=== PATIENT | female | born 1960 | race Caucasian/White ===

== ENCOUNTER → 2019-01-13 | Outpatient (CLI) | payer MEDICAID ==
[~2019-01-13] MED LIST: ALPR1TAB7; ATOR20TA66; BUTA1TAB9; FURO40TA4; GABA-488; GLIP10TA13; GLIP5TAB13 PO; HYDR-34; HYDR-700; KETO10TA PO; LISI-552; LORA10TA7; METF-399; METH750T3; NITR-65 PO; NORT50CA; OMEP20CA13; RT-ALBUINH; SUMA100T3; TRAM50TA2
[2019-01-13 13:54] LABS: BASOPHILS % (AUTO) 0 % (0-10); EOSINOPHILS # (AUTO) 0.3 10^3/uL (0.0-0.3); EOSINOPHILS % (AUTO) 4 % (0-10); HEMATOCRIT 39 % (35-52); HEMOGLOBIN 12.3 G/DL (11.5-16.0); LYMPHOCYTES # (AUTO) 1.7 X 10^3 (1.0-4.0); LYMPHOCYTES % (AUTO) 26 % (12-44); MEAN CORPUSCULAR HEMOGLOBIN 30 PG (25-34); MEAN CORPUSCULAR HGB CONC 32 G/DL (32-36); MEAN CORPUSCULAR VOLUME 92 FL (80-99); MEAN PLATELET VOLUME 8.9 FL (7.4-10.4); MONOCYTES # (AUTO) 0.3 X 10^3 (0.0-1.0); MONOCYTES % (AUTO) 5 % (0-12); NEUTROPHILS # (AUTO) 4.1 X 10^3 (1.8-7.8); NEUTROPHILS % (AUTO) 64 % (42-75); PLATELET COUNT 306 10^3/uL (130-400); RED CELL DISTRIBUTION WIDTH 12.9 % (10.0-14.5); WHITE BLOOD COUNT 6.3 10^3/uL (4.3-11.0)
[2019-01-13 14:17] LABS: ALBUMIN 4.5 GM/DL (3.2-4.5); BILIRUBIN,TOTAL 0.5 MG/DL (0.1-1.0); CALCIUM 10.9 MG/DL (8.5-10.1); CREATININE SERUM 2.12 MG/DL (0.60-1.30); POTASSIUM 4.9 MMOL/L (3.6-5.0); TOTAL PROTEIN 7.9 GM/DL (6.4-8.2)
--- NOTE | 2019-01-13 14:48 | Diagnostic Imaging Report ---
INDICATION: Preop EXAMINATION: PA and lateral views of the chest. FINDINGS: The heart size and vascularity are normal. Lungs are clear. There is no effusion. There is no acute bony abnormality. IMPRESSION: No acute abnormality is seen. Dictated by: Dictated on workstation # [id number]
== END ==
LOC: CARD 13:36
PROVIDERS: ATTEND Surgery
DX: Z01.810 Encounter for preprocedural cardiovascular examination (principal); Z01.812 Encounter for preprocedural laboratory examination; Z01.811 Encounter for preprocedural respiratory examination; E11.9 Type 2 diabetes mellitus without complications
CPT/HCPCS: 36415; 71046; 80053; 83036; 85025; 93005

== ENCOUNTER → 2019-10-06 | Outpatient (CLI) | payer MEDICAID ==
[~2019-10-06] MED LIST changes: -OMEP20CA13; +OMEP20CA18; -TRAM50TA2; +TRM50T
[2019-10-06 14:40] LABS: HEMOGLOBIN 11.6 G/DL (11.5-16.0); RED CELL DISTRIBUTION WIDTH 15.9 % (10.0-14.5); WHITE BLOOD COUNT 9.5 10^3/uL (4.3-11.0)
[2019-10-06 14:53] LABS: ALBUMIN 4.3 GM/DL (3.2-4.5); CALCIUM 10.5 MG/DL (8.5-10.1); CREATININE SERUM 2.09 MG/DL (0.60-1.30); PHOSPHORUS 3.3 MG/DL (2.3-4.7); POTASSIUM 4.9 MMOL/L (3.6-5.0)
== END ==
LOC: LAB 14:15
PROVIDERS: ATTEND Specialist
DX: I12.9 Hypertensive chronic kidney disease with stage 1 through stage 4 chronic kidney disease, or unspecified chronic kidney disease (principal); N18.3 Chronic kidney disease, stage 3 (moderate)
CPT/HCPCS: 36415; 80069; 85027

== ENCOUNTER → 2019-10-25 | Outpatient (CLI) | payer MEDICAID ==
[~2019-10-25] MED LIST changes: -ALPR1TAB7; +ALPR1TAB7 PO; +AMLO5TAB9 PO; +ASPI-983 PO; -ATOR20TA66; +ATOR20TA66 PO; -FURO40TA4; +FURO40TA4 PO; -GLIP10TA13; +GLIP10TA13 PO; +HYDR-4342 PO; -HYDR-700; +HYDR-700 PO; +INSU100I10 SC; +INSU100I10 SQ; +INSU100V SC; +LEVO112T55 PO; -LISI-552; +LISI-552 PO; -LORA10TA7; +LORA10TA7 PO; +MELA5TAB14 PO; -METF-399; +METF-399 PO; +METH500T7 PO; +MTP25TSR PO; -NORT50CA; +NORT50CA PO; -OMEP20CA18; +OMEP20CA18 PO; -RT-ALBUINH; +RT-ALBUINH PO; +SAXA2.5T PO; -SUMA100T3; +SUMA100T3 PO
[2019-10-25 14:56] LABS: HEMOGLOBIN 9.6 G/DL (11.5-16.0); MEAN PLATELET VOLUME 9.4 FL (7.4-10.4); RED CELL DISTRIBUTION WIDTH 15.3 % (10.0-14.5); WHITE BLOOD COUNT 11.4 10^3/uL (4.3-11.0)
[2019-10-25 15:10] LABS: POTASSIUM 4.9 MMOL/L (3.6-5.0)
[2019-10-25 15:12] LABS: CALCIUM 10.2 MG/DL (8.5-10.1)
[2019-10-25 15:16] LABS: CREATININE SERUM 1.83 MG/DL (0.60-1.30); PHOSPHORUS 2.8 MG/DL (2.3-4.7)
== END ==
LOC: LAB 14:38
PROVIDERS: ATTEND Specialist
DX: I12.9 Hypertensive chronic kidney disease with stage 1 through stage 4 chronic kidney disease, or unspecified chronic kidney disease (principal); N18.3 Chronic kidney disease, stage 3 (moderate)
CPT/HCPCS: 36415; 80069; 85027

== ENCOUNTER 2019-10-27 10:28 | Inpatient (IN) | payer MEDICAID ==
[~2019-10-27] VITALS: Ht 160 cm; Wt 96.3 kg
[2019-10-27] VITALS (11 sets, daily range): BP systolic 90–165; BP diastolic 43–103
[~2019-10-27 10:28] MED LIST changes: -AMLO5TAB9 PO; -ASPI-983 PO; -HYDR-4342 PO; -INSU100I10 SC; -INSU100I10 SQ; -INSU100V SC; -LEVO112T55 PO; -MELA5TAB14 PO; -METH500T7 PO; -MTP25TSR PO; -SAXA2.5T PO
--- NOTE | 2019-10-27 10:35 | NUR ---
PULSE OX 92% ON 3L OXYGEN.
--- NOTE | 2019-10-27 10:43 | ED General ---
General Stated Complaint: WEAKNESS Source of Information: Patient History of Present Illness Date Seen by Provider: Oct 27, 2019 Time Seen by Provider: 10:42 Initial Comments 59-year-old female presents with dizziness and shortness of breath. Patient re ports she's had dizziness for 3-4 days. Gets worse when she stands up little bit if she moves her head. Patient has a history of chronic kidney disease. Upon arrival patient's oxygen is in the mid 70sbut she has no respiratory distress with just mild complaints of shortness of breath. Patient reports she takes lisinopril. Patient denies any headache. She denies fevers or chills. She does report a cough.. Allergies and Home Medications Allergies Coded Allergies: aspirin (Verified Allergy, Unknown, 05/09/15) codeine (Verified Allergy, Unknown, 05/09/15) Home Medications Ketorolac Tromethamine 10 Mg Tablet, 10 MG PO Q6H Prescribed by: SUSY CANNON on 05/09/152030 Nitrofurantoin Monohyd/M-Cryst 100 Mg Capsule, 100 MG PO BID Prescribed by: SUSY CANNON on 05/09/152030 Patient Home Medication List Home Medication List Reviewed: Yes Review of Systems Review of Systems Constitutional: chills, dizziness; No fever Respiratory: cough, short of breath Cardiovascular: No chest pain, No palpitations Gastrointestinal: No abdominal pain, No nausea, No vomiting Genitourinary: no symptoms reported Musculoskeletal: no symptoms reported Skin: no symptoms reported Psychiatric/Neurological: No Symptoms Reported Past Fyxseyw-Mbopnt-Uexzmm Hx Past Med/Social Hx: Reviewed Nursing Past Med/Soc Hx Immunizations Up To Date Date of Influenza Vaccine: Feb 22, 2015 Seasonal Allergies Seasonal Allergies: No Past Medical History Appendectomy, Section, Gallbladder, Orthopedic, Tubal Ligation Asthma Hypertension Neuropathy Reproductive Disorders: Yes (UTERINE FIBROID) [employer]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 oz. 102.861954kp; BMI Method: General Appearance: No Apparent Distress, WD/WN Neck: Non Tender, Supple Respiratory: Chest Non Tender, Lungs Clear, Normal Breath Sounds Cardiovascular: No Edema, Tachycardia Gastrointestinal: Non Tender, Soft Extremity: Normal Range of Motion Neurologic/Psychiatric: Alert, Oriented x3, No Motor/Sensory Deficits, Normal Mood/Affect Skin: Warm/Dry Focused Exam Lactate Level 10/27/19 11:10: Lactic Acid Level 1.64 Lactic Acid Level Progress/Results/Core Measures Suspected Sepsis SIRS Temperature: Pulse: Respiratory Rate: Laboratory Tests 10/27/19 11:10: White Blood Count 15.3H 10/28/19 03:32: White Blood Count 10.2 Blood Pressure / Mean: 10/27/19 11:10: Lactic Acid Level 1.64 Laboratory Tests 10/27/19 11:10: Creatinine 1.73H, Platelet Count 336, Total Bilirubin 2.1H 10/27/19 12:06: INR Comment 1.0 10/28/19 03:32: Creatinine 1.97H, Platelet Count 330, Total Bilirubin 1.3H Results/Orders Lab Results Laboratory Tests Test 10/27/19 11:10 10/27/19 12:06 10/27/19 13:35 10/27/19 13:41 Range/Units White Blood Count 15.3 H 4.3-11.0 10^3/uL Red Blood Count 3.67 L 4.35-5.85 10^6/uL Hemoglobin 10.3 L 11.5-16.0 G/DL Hematocrit 32 L 35-52 % Mean Corpuscular Volume 88 80-99 FL Mean Corpuscular Hemoglobin 28 25-34 PG Mean Corpuscular Hemoglobin Concent 32 32-36 G/DL Red Cell Distribution Width 15.7 H 10.0-14.5 % Platelet Count 336 130-400 10^3/uL Mean Platelet Volume 9.9 7.4-10.4 FL Neutrophils (%) (Auto) 87 H 42-75 % Lymphocytes (%) (Auto) 7 L 12-44 % Monocytes (%) (Auto) 6 0-12 % Eosinophils (%) (Auto) 0 0-10 % Basophils (%) (Auto) 0 0-10 % Neutrophils # (Auto) 13.2 H 1.8-7.8 X 10^3 Lymphocytes # (Auto) 1.1 1.0-4.0 X 10^3 Monocytes # (Auto) 0.9 0.0-1.0 X 10^3 Eosinophils # (Auto) 0.0 0.0-0.3 10^3/uL Basophils # (Auto) 0.0 0.0-0.1 10^3/uL Neutrophils % (Manual) 86 % Lymphocytes % (Manual) 9 % Monocytes % (Manual) 5 % Hypochromasia SLIGHT Sodium Level 139 135-145 MMOL/L Potassium Level 4.4 3.6-5.0 MMOL/L Chloride Level 102 98-107 MMOL/L Carbon Dioxide Level 24 21-32 MMOL/L Anion Gap 13 5-14 MMOL/L Blood Urea Nitrogen 19 H 7-18 MG/DL Creatinine 1.73 H 0.60-1.30 MG/DL Estimat Glomerular Filtration Rate 30 BUN/Creatinine Ratio 11 Glucose Level 390 H 70-105 MG/DL Lactic Acid Level 1.64 0.50-2.00 MMOL/L Calcium Level 10.2 H 8.5-10.1 MG/DL Corrected Calcium 10.4 H 8.5-10.1 MG/DL Ferritin 181.4 H 20.0-177.0 ng/mL Total Bilirubin 2.1 H 0.1-1.0 MG/DL Aspartate Amino Transf (AST/SGOT) 39 H 5-34 U/L Alanine Aminotransferase (ALT/SGPT) 55 0-55 U/L Alkaline Phosphatase 80 40-136 U/L Lactate Dehydrogenase 288 H 125-220 U/L Troponin I 1.127 *H <0.028 NG/ML C-Reactive Protein High Sensitivity 35.77 H 0.00-0.50 MG/DL B-Type Natriuretic Peptide 1020.3 H <100.0 PG/ML Total Protein 7.4 6.4-8.2 GM/DL Albumin 3.7 3.2-4.5 GM/DL Procalcitonin 0.71 H <0.10 NG/ML Coronavirus (COVID-19)(PCR) Negative Negative Prothrombin Time 13.9 12.2-14.7 SEC INR Comment 1.0 0.8-1.4 Activated Partial Thromboplast Time 31 24-35 SEC Fibrinogen 1151 H 221-496 MG/DL Blood Gas Puncture Site LEFT WRITST Blood Gas Patient Temperature 37.3 Arterial Blood pH 7.40 7.37-7.43 Arterial Blood Partial Pressure CO2 45 35-45 MMHG Arterial Blood Partial Pressure O2 63 L 79-93 MMHG Arterial Blood HCO3 27 23-27 MMOL/L Arterial Blood Total CO2 28.2 21.0-31.0 MMOL/L Arterial Blood Oxygen Saturation 86 L 94-100 % Arterial Blood Base Excess 2.5 -2.5-2.5 MMOL/L Rene Test POSITIVE Blood Gas Ventilator Setting NO Blood Gas Inspired Oxygen 2 Urine Opiates Screen POSITIVE H NEGATIVE Urine Oxycodone Screen NEGATIVE NEGATIVE Urine Methadone Screen NEGATIVE NEGATIVE Urine Propoxyphene Screen NEGATIVE NEGATIVE Urine Barbiturates Screen NEGATIVE NEGATIVE Ur Tricyclic Antidepressants Screen POSITIVE H NEGATIVE Urine Phencyclidine Screen NEGATIVE NEGATIVE Urine Amphetamines Screen NEGATIVE NEGATIVE Urine Methamphetamines Screen NEGATIVE NEGATIVE Urine Benzodiazepines Screen POSITIVE H NEGATIVE Urine Cocaine Screen NEGATIVE NEGATIVE Urine Cannabinoids Screen NEGATIVE NEGATIVE Test 10/27/19 17:23 10/27/19 17:26 10/27/19 17:33 10/27/19 18:06 Range/Units Blood Gas Puncture Site LEFT RADIAL Blood Gas Patient Temperature 37 Arterial Blood pH 7.42 7.37-7.43 Arterial Blood Partial Pressure CO2 44 35-45 MMHG Arterial Blood Partial Pressure O2 62 L 79-93 MMHG Arterial Blood HCO3 28 H 23-27 MMOL/L Arterial Blood Total CO2 28.9 21.0-31.0 MMOL/L Arterial Blood Oxygen Saturation 91 L 94-100 % Arterial Blood Base Excess 3.3 H -2.5-2.5 MMOL/L Rene Test POSITIVE Blood Gas Ventilator Setting NO Blood Gas Inspired Oxygen 3 L Troponin I 0.787 *H <0.028 NG/ML Glucometer 278 H 70-110 MG/DL Test 10/27/19 19:50 10/28/19 03:32 10/28/19 08:30 Range/Units D-Dimer 3.28 H 0.00-0.49 UG/ML Glucometer 320 H 70-110 MG/DL White Blood Count 10.2 4.3-11.0 10^3/uL Red Blood Count 3.47 L 4.35-5.85 10^6/uL Hemoglobin 9.6 L 11.5-16.0 G/DL Hematocrit 31 L 35-52 % Mean Corpuscular Volume 89 80-99 FL Mean Corpuscular Hemoglobin 28 25-34 PG Mean Corpuscular Hemoglobin Concent 31 L 32-36 G/DL Red Cell Distribution Width 15.3 H 10.0-14.5 % Platelet Count 330 130-400 10^3/uL Mean Platelet Volume 9.3 7.4-10.4 FL Neutrophils (%) (Auto) 71 42-75 % Lymphocytes (%) (Auto) 22 12-44 % Monocytes (%) (Auto) 6 0-12 % Eosinophils (%) (Auto) 1 0-10 % Basophils (%) (Auto) 0 0-10 % Neutrophils # (Auto) 7.2 1.8-7.8 X 10^3 Lymphocytes # (Auto) 2.2 1.0-4.0 X 10^3 Monocytes # (Auto) 0.6 0.0-1.0 X 10^3 Eosinophils # (Auto) 0.1 0.0-0.3 10^3/uL Basophils # (Auto) 0.0 0.0-0.1 10^3/uL Sodium Level 139 135-145 MMOL/L Potassium Level 3.6 3.6-5.0 MMOL/L Chloride Level 100 98-107 MMOL/L Carbon Dioxide Level 27 21-32 MMOL/L Anion Gap 12 5-14 MMOL/L Blood Urea Nitrogen 25 H 7-18 MG/DL Creatinine 1.97 H 0.60-1.30 MG/DL Estimat Glomerular Filtration Rate 26 BUN/Creatinine Ratio 13 Glucose Level 176 H 70-105 MG/DL Calcium Level 10.0 8.5-10.1 MG/DL Corrected Calcium 10.4 H 8.5-10.1 MG/DL Phosphorus Level 1.8 L 2.3-4.7 MG/DL Magnesium Level 1.2 L 1.6-2.4 MG/DL Total Bilirubin 1.3 H 0.1-1.0 MG/DL Aspartate Amino Transf (AST/SGOT) 35 H 5-34 U/L Alanine Aminotransferase (ALT/SGPT) 52 0-55 U/L Alkaline Phosphatase 69 40-136 U/L Troponin I 0.465 *H <0.028 NG/ML Total Protein 7.2 6.4-8.2 GM/DL Albumin 3.5 3.2-4.5 GM/DL Urine Color YELLOW Urine Clarity CLEAR Urine pH 7.0 5-9 Urine Specific [place] 1.015 L 1.016-1.022 Urine Protein 1+ H NEGATIVE Urine Glucose (UA) NEGATIVE NEGATIVE Urine Ketones NEGATIVE NEGATIVE Urine Nitrite NEGATIVE NEGATIVE Urine Bilirubin NEGATIVE NEGATIVE Urine Urobilinogen 0.2 < = 1.0 MG/DL Urine Leukocyte Esterase NEGATIVE NEGATIVE Urine RBC (Auto) TRACE-I NEGATIVE Urine RBC RARE /HPF Urine WBC NONE /HPF Urine Squamous Epithelial Cells RARE /HPF Urine Crystals NONE /LPF Urine Bacteria NEGATIVE /HPF Urine Casts NONE /LPF Urine Mucus NEGATIVE /LPF Urine Culture Indicated NO My Orders Orders - ROSAS,BHARAT L DO Vital Signs: Every 4 Hours (Or (10/27/19 10:43) Monitor-Rhythm Ecg Trace Only (10/27/19 10:43) Ed Iv/Invasive Line Start (10/27/19 10:43) Cbc With Automated Diff (10/27/19 10:43) Comprehensive Metabolic Panel (10/27/19 10:43) Ferritin (10/27/19 10:43) LDH (10/27/19 10:43) Hs C Reactive Protein (10/27/19 10:43) Troponin I (10/27/19 10:43) Lactic Acid Analyzer (10/27/19 10:43) Protime With Inr (10/27/19 10:43) Partial Thromboplastin Time (10/27/19 10:43) Fibrinogen (10/27/19 10:43) Ekg Tracing (10/27/19 10:43) Chest 1 View, Ap/Pa Only (10/27/19 10:43) Acetaminophen Tablet/Caplet (Tylenol T (10/27/19 10:45) Oxygen Delivery Set Up (10/27/19 10:43) Oxygen-Administer 07,19 (10/27/19 10:43) Meclizine Tablet (Antivert Tablet) (10/27/19 11:00) Manual Differential (10/27/19 11:10) Coronavirus Sars-Cov-2 So 2018 (10/27/19 11:44) Ed Iv/Invasive Line Start (10/27/19 11:51) Ns Iv 500 Ml (Sodium Chloride 0.9%) (10/27/19 11:51) Enoxaparin Injection (Lovenox Injection) (10/27/19 12:00) Ns Iv 500 Ml (Sodium Chloride 0.9%) (10/27/19 11:50) Procalcitonin (Pct) (10/27/19 11:53) Enoxaparin Injection (Lovenox Injection) (10/27/19 11:51) Levofloxacin 750 Mg/150 Ml Iv (Levaquin (10/27/19 12:56) Arterial Blood Gas (10/27/19 13:07) BNP (10/27/19 13:07) Drug Screen Stat (Urine) (10/27/19 13:07) Arterial Blood Gas (10/27/19 13:49) Furosemide Injection (Lasix Injection) (10/27/19 14:15) Blood Culture (10/27/19 12:00) Blood Culture (10/27/19 11:10) Medications Given in ED Vital Signs/I&O 10/27/19 10/28/19 10/28/19 10/28/19 23:04 00:00 00:00 01:00 Temp 35.0 Pulse 109 96 104 Resp 21 26 B/P (MAP) 112/73 (86) 131/91 (104) Pulse Ox 95 94 O2 Delivery Nasal Cannula Nasal Cannula Nasal Cannula O2 Flow Rate 4.00 4.00 4.00 10/28/19 10/28/19 10/28/19 10/28/19 01:00 02:00 03:00 03:44 Temp 36.3 Pulse 101 Resp 22 B/P (MAP) 116/93 (101) 150/99 (116) 138/92 (107) Pulse Ox 94 O2 Delivery Nasal Cannula Nasal Cannula Nasal Cannula O2 Flow Rate 4.00 4.00 4.00 10/28/19 10/28/19 10/28/19 10/28/19 04:00 04:06 05:00 06:00 Pulse 99 103 99 Resp 34 22 14 B/P (MAP) 118/83 (95) 161/116 (131) 143/120 (128) Pulse Ox 93 91 O2 Delivery Nasal Cannula Nasal Cannula Nasal Cannula Nasal Cannula O2 Flow Rate 4.00 4.00 4.00 4.00 10/28/19 10/28/19 10/28/19 07:00 08:00 08:36 Temp 35.7 Pulse 105 96 Resp 15 9 B/P (MAP) 143/120 (128) 74/53 (60) O2 Delivery Nasal Cannula Nasal Cannula O2 Flow Rate 4.00 4.00 10/28/19 00:00 Intake Total 500 ml Balance 500 ml Capillary Refill : Departure Communication (Admissions) Time/Spoke to Admitting Phy: 16:[address] Herron who accepted patient Time/Spoke to Consulting Phy: 15:30 We will check BNP, ABG. Patient shows what appears to be acute CHF. We'll admit her to the hospitalist and Dr. Kelly will see her on the floor. Impression Primary Impression: Congestive heart failure Qualified Codes: I50.9 - Heart failure, unspecified Additional Impressions: Elevated troponin Pulmonary edema Qualified Codes: J81.0 - Acute pulmonary edema Disposition: ADMITTED INPATIENT Condition: Stable Admissions Decision to Admit Reason: Admit from ER (General) Decision to Admit/Date: Oct 27, 2019 Time/Decision to Admit Time: 15:30 Departure-Patient Inst. Referrals: NO,LOCAL PHYSICIAN (PCP/Family) Primary Care Physician BHARAT ROSAS DO Oct 27, 2019 10:42
[2019-10-27] MEDS ORDERED: ACETAMINOPHEN 325 MG TABLET PO ONE (10:45)
[2019-10-27] MEDS ORDERED: MECLIZINE 25 MG (ANTIVERT) TAB PO ONE (11:00)
--- NOTE | 2019-10-27 11:10 | NUR ---
COVID TESTING DONE
--- OUTSIDE RECORDS SUMMARY | 2019-10-27 11:24 | XMS REPORT ---
Author Author SavySwap [facility] Address [address] [place] [address] Care Team Providers Care Bulk Sausage Casing Tier Off Name Role Phone NO, LOCAL PHYSICIAN Unavailable Unavailable EMILY ROBB Unavailable Unavailable SHRUTHI Lawson Unavailable Unavailable Unavailable Kelly Weir PCP Kelly Weir Unavailable Unavailable Kelly Weir Unavailable Unavailable Migration, Doctor Unavailable Unavailable Migration, Doctor Unavailable Unavailable Delbert Garcia MD Unavailable Unavailable [facility] Unavailable Martha vailaJimenez Lindsay PCP JIMENEZ GRESHAM Unavailable Unavailable DELBERT GARCIA Unavailable Unavailable BOUMAN, JIMENEZ C Unavailable Unavailable Bouman, Jimenez Unavailable Unavailable Bouman, Jimenez Unavailable Unavailable Bouman, Jimenez Unavailable Unavailable BOKAITY DO JIMENEZ C Unavailable Unavailable zSam EMILY C Unavailable Unavailable BOUMAN, JIMENEZ C Unavailable Unavailable [facility] Xwatchlist ITZEL VELÁSQUEZ MD Anesth ELVIS SOSA CRNA Anesth KENDRA Verma DO Attending SUSY CANNON DO Unavailable Unavailable MD Delbert Garcia Unavailable Unavailable MD Delbert Garcia Unavailable Unavailable [facility] Unavailable Unavailable Jimenez Gresham PCP [facility] Unavailable Martha DESMOND Pfeiffer MD Unavailable Unavailable Unavailable Unavailable Unavailable Unavailable Unavailable Unavailable Unavailable Unavailable Unavailable Unavailable Unavailable Unavailable Unavailable Unavailable Unavailable Unavailable Unavailable Unavailable Unavailable Unavailable Unavailable Unavailable Unavailable Unavailable Allergies Normalized Allergy Reported Date of Reaction(s) Care Provider Facility Allergy Type classification allergen Allergy Onset Drug allergy Unclassified no information no information [facility] ([facility]) (4 [phone] (72613) (Work source.) ) Drug allergy Unclassified no information no information ANSLEY DYE [facility] (disorder) (1 [phone] (44847) (Work source.) ) Drug allergy Unclassified no information no information ANSLEY DYE [facility] (disorder) (1 [phone] (53136) (Work source.) ) Drug allergy Unclassified no information no information ANSLEY DYE [facility] (disorder) (1 [phone] (35053) (Work source.) ) Drug allergy Unclassified no information no information ANSLEY DYE [facility] (disorder) (1 [phone] (05933) (Work source.) ) Drug allergy Unclassified no information no information ANSLEY DYE [facility] (disorder) (1 [phone] (13936) (Work source.) ) Medications Current Medications Medication Ingredient Drug Dose Dates Status Sig Sig Care Class(es) (Normalized) (Original) Provid er albuterol Albuterol / Anticholine 03-21-20 Active no no no 0.833 mg/ml Ipratropium rgic, 19 information informatio n name / beta2-Adren ipratropium ergic bromide Agonist 0.167 mg/ml inhalant solution (2 sources.) docusate Docusate no 100 mg 03-22-20 Active no no n o sodium 100 information 19 information information name mg oral capsule (2 sources.) 0.4 ml Enoxaparin Low 03-22-20 Active no no no enoxaparin Molecular 19 information information name sodium 100 Weight mg/ml Heparin prefilled syringe (2 sources.) insulin insulin Insulin 03-22-20 Active no no no detemir 100 detemir Analog 19 information information name unt/ml injectable solution (2 sources.) metoprolol Metoprolol beta-Adrene 25 mg 03-22-20 Active take 1 no no tartrate 25 Translation rgic 19 tablet by information name mg oral s: [ Yasmeen mouth every tablet (3 Metoprolol twelve hours sources.) Tartrate 25 MG Oral Tablet] 1 ml Morphine Opioid 03-21-20 Active no no no morphine Agonist 19 information information name sulfate 2 mg/ml prefilled syringe (2 sources.) 2 ml Ondansetron Serotonin-3 03-21-20 Active no no no ondansetron Receptor 19 information information name 2 mg/ml Antagonist injection (2 sources.) pantoprazol pantoprazol Proton Pump 40 mg 03-21-20 Active no no no e 40 mg e Inhibitor 19 information information n max delayed release oral tablet (2 sources.) potassium potassium no 03-22-20 Active no no no phosphate phosphate / information 19 information informat ion name 155 mg / Sodium sodium Phosphate, phosphate, Dibasic / dibasic 852 Sodium mg / sodium Phosphate, phosphate, Monobasic monobasic 130 mg oral tablet (2 sources.) 10 ml Sodium no 03-22-20 Active no no no sodium Chloride information 19 information information name chloride 9 mg/ml prefilled syringe (2 sources.) Completed/Discontinued Medications Medication Ingredient Drug Dose Dates Status Sig Sig Care Class(es) (Normalized) (Original) Provid er aspirin 81 aspirin Nonsteroida 81 mg 11-18-19 no take 1 ASP IRIN 81 Delbert mg delayed Translation l 18 informat tablet by MG TBEC T jairo K release s: [ Anti-inflam ion mouth once one (1) Th omen oral tablet Aspirin 81 matory Drug daily tablet by (n o (20 MG Delayed mouth daily phone) sources.) Release Oral ASPIRIN Tablet, [id number] Aspirin 81 Active MG Delayed Delbert K Release Liseth COON Oral Active Tablet] no BLOOD no 12-10-19 no no TRUE METRIX Heydi information GLUCOSE information 18 informat information AIR GLUCOSE y (20 MONITORING ion METER DEVICE Silveira sources.) SUPPL Use as MA (no directed phone) BLOOD GLUCOSE MONITORING SUPPL [id number] Active Delbert Garcia MD Active 12-09-2017 no no TRUE Agata information inform METRIX Raoul ation AIR MA (no GLUCOSE phone) METER DEVICE Use as directed BLOOD GLUCOSE MONITORI NG SUPPL 93134529 401 Active Delbert Garcia MD Active 03-22-2014 no no TRUETRAC Delbert Reza BLOOD Liseth ferrer GLUCOSE (no w/Device phone) KIT Test twice a day BLOOD GLUCOSE MONITORI NG SUPPL 08542097 921 Active Delbert Garcia MD Active 03-22-2014 no no TRUETRAC Delbert Reza information inform K BLOOD Liseth ferrer GLUCOSE (no w/Device phone) KIT Test twice a day BLOOD GLUCOSE MONITORI NG SUPPL 26309224 921 Active Delbert Garcia MD Active butalbital butalbital Barbiturate Complete no butalbital no (bulk) Translation d information (bulk) name miscellaneo s: [ miscellaneou us powder butalbital] s powder use (3 as directed sources.) no butalbital no no no butalbital no information (bulk) information informat information (bulk) name (1 source.) miscellaneo ion miscellaneou us powder s powder use as directed cefdinir cefdinir Cephalospor 600 mg 11-12-19 Complete take 2 ce fdinir 300 no 300 mg oral Translation in 19 - d capsules by mg oral name capsule (4 s: [ Antibacteri 08-30-19 mouth once capsule sources.) cefdinir al 19 daily 11/11/2018 300 MG Oral 08/29/2018 Capsule] take 2 capsules (600 mg) by oral route once daily for 10 days 600 mg 11-11-2018 Completed take 2 cefdinir no name - capsul 300 mg 08-29-2018 es by oral mouth capsule once daily 9 08/29/2018 take 2 capsules (600 mg) by oral route once daily for 10 days 600 mg 11-11-2018 Completed take 2 cefdinir no name - capsul 300 mg 08-29-2018 es by oral mouth capsule once daily 9 08/29/2018 take 2 capsules (600 mg) by oral route once daily for 10 days 600 mg 08-19-2018 Completed take 2 cefdinir no name - capsul 300 mg 08-29-2018 es by oral mouth capsule once daily 9 08/29/2018 take 2 capsules (600 mg) by oral route once daily for 10 days no GLUCOSE no 03-02-20 no no TRUE METRIX Beth information BLOOD information 19 informat information B/Keren Carr (20 ion STRIPS 25'S , RMA sources.) TEST BLOOD (no SUGAR TWICE phone) DAILY GLUCOSE BLOOD 67308243353 Active KENDALL Juarez Active 03-02-2019 no no TRUE Beth information inform carissa Malone B/G TEST RMA (no STRIPS phone) 25'S TEST BLOOD SUGAR TWICE DAILY GLUCOSE BLOOD 55569168 404 Active KENDALL Juarez Active 03-22-2014 no no TRUE Beth information inform carissa Malone BLOOD RMA (no GLUCOSE phone) TEST IN VITRO STRIP test blood sugar BID Dx: E11.65 GLUCOSE BLOOD 54693079 404 Active KENDALL Juarez Active 12-12-2011 no no ONETOUCH Delbert K - information inform [employer] 11-03-2014 carissa GOMEZ MD (no VITRO phone) STRIP Test twice a day GLUCOSE BLOOD 84753884 450 No Longer Active Delbert Garcia MD Active 12-12-2011 no no ONETOUCH Delbert Reza - information inform [employer] 11-03-2014 carissa GOMEZ MD (no VITRO phone) STRIP Test twice a day GLUCOSE BLOOD 98641031 450 No Longer Active Delbert Garcia MD Active insulin Insulin Insulin 04-12-20 no inject 10 HUMALOG 100 Delbert lispro 100 Lispro Analog [IU] 19 informat [IU] by UNIT/ML K unt/ml Translation ion subcutaneous SUBCUTANEOUS Th omen injectable s: [ injection SOLUTION (no solution HUMALOG 100 once at Take 10 phone) (20 UNIT/ML mealtime units with sources.) SUBCUTANEOU every meal S SOLUTION] INSULIN LISPRO 35007552124 Active Delbert Garcia MD Active 5 [IU] 04-12-2019 no inject HUMALOG Fadumo 5 [IU] 100 Joseph by UNIT/ML (no subcut SUBCUTAN phone) aneous EOUS inject SOLUTION ion Take 5 once units at with mealti every me meal INSULIN LISPRO 18453137 001 Active Fadumo Ruiz Active no INSULIN PEN no 12-21-19 no no PEN NEEDLES Alysia a information NEEDLE information 16 informat information 31G X 6 MM Herbert (20 ion use 1 daily RMA sources.) (no INSULIN PEN phone) NEEDLE 44045558060 Active KENDALL Juarez Active 12-21-2015 no no PEN Martita information inform NEEDLES Herbert RMA ation 31G X 6 (no MM use 1 phone) daily INSULIN PEN NEEDLE 56612713 118 Active KENDALL Juarez Active no INSULIN no 09-06-19 no no INSULIN Fanny information SYRINGE-NEE information 20 informat information SYRINGE 27G Kidwel (14 DLE U-100 ion X 1/2" 0.5 l, MA sources.) ML use 1 as (no needed. phone) INSULIN SYRINGE-NEED LE U-100 83459324802 Active Fanny Hudson MA Active insulin, Insulin, Insulin 5 [IU] 04-12-20 no inject 5 NOVOLO G 100 Delbert aspart, Aspart, Analog 19 informat [IU] by UNIT/ML K human 100 Human ion subcutaneous SUBCUTANEOUS Thomen unt/ml Translation injection at SOLUTION 5 MD (no injectable s: [ mealtime units with phone) solution NOVOLOG 100 each meal. (20 UNIT/ML sources.) SUBCUTANEOU INSULIN S SOLUTION] ASPART 36353989821 No Longer Active Fanny Hudson MA Active 03-21-2019 Active no no no name inform informat ation ion magnesium Magnesium no 400 mg 07-12-19 no take 1 MAGNESI UM Fadumo oxide 400 Oxide information 20 informat capsule by OXIDE 40 0 MG Noe mg oral Translation ion mouth twice ORAL CAPSULE on (no capsule (19 s: [ daily 1 po bid phone) sources.) MAGNESIUM OXIDE 400 MAGNESIUM MG CAPS] OXIDE 54597477603 Active Fadumo Joseph Active 400 mg 03-22-2019 Active take 1 no no name tablet informat by ion mouth every twelve hours no ONETOUCH no 12-12-19 Complete no ONETOUCH no information ULTRA BLUE information 12 - d information ULT RA BLUE name (10 IN VITRO 11-04-19 IN VITRO sources.) STRIP 15 STRIP Test Translation twice a day s: [ ONETOUCH ULTRA BLUE ONETOUCH IN VITRO ULTRA BLUE STRIP, IN VITRO ONETOUCH STRIP ULTRA BLUE GLUCOSE IN VITRO BLOOD STRIP] Inactive sAXagliptin sAXagliptin Dipeptidyl 2.5 mg 04-01-20 no take 1 ONGLYZA 2.5 Jagjit 2.5 mg oral Translation Peptidase 4 19 informat tablet by MG TABS TAKE M tablet (20 s: [ Inhibitor ion mouth once 1 TABLET BY Dora sources.) ONGLYZA 2.5 daily for MOUTH EVERY ey MD MG ORAL diabetes DAY FOR (no TABLET, mellitus DIABETES phone) ONGLYZA 2.5MG SAXAGLIPTIN TABLETS, HCL ONGLYZA 2.5 46599209430 MG TABS] Active Delbert Garcia MD Active 2.5 mg 03-02-2019 no take 1 ONGLYZA Beth information tablet 2.5MG Carr, by TABLETS RMA (no mouth TAKE 1 phone) once TABLET daily BY MOUTH for DAILY diabet FOR es DIABETES mellit us 09 SAXAGLIP TIN HCL 69151350 030 Active Beth Carr, RMA Active 2.5 mg 11-09-2018 no take 1 ONGLYZA Delbert Reza information tablet 2.5 MG Thomen by ORAL MD (no mouth TABLET 1 phone) once daily daily for for diabetes diabet 18 mellit SAXAGLIP us TIN HCL 57623109 030 Active Delbert Garcia MD Active no TOUJEO no 10 12-18-19 Complete take 10 [IU] TOUJE O no information SOLOSTAR information [IU] 16 - d by PRIYA OSTAR 300 name (16 300 UNIT/ML 12-21-19 subcutaneous UNIT/ML sources.) SUBCUTANEOU 16 injection SUBCUTANEOUS S SOLUTION once daily SOLUTION PEN-INJECTO PEN-INJECTOR R 10 units SC Translation daily s: [ TOUJEO SOLOSTAR 300 UNIT/ML TOUJEO SUBCUTANEOU SOLOSTAR 300 S SOLUTION UNIT/ML PEN-INJECTO SUBCUTANEOUS R, TOUJEO SOLUTION SOLOSTAR PEN-INJECTOR 300 UNIT/ML INSULIN SUBCUTANEOU GLARGINE S SOLUTION Inactive PEN-INJECTO R] no TRUE METRIX no 12-10-19 no no TRUE METRIX She lle information AIR GLUCOSE information 18 informat information AIR GLUCOSE y (16 METER ion METER DEVICE Silveira sources.) DEVICE Use as MA (no directed phone) BLOOD GLUCOSE MONITORING SUPPL 59464780770 Active Delbert Garcia MD Active 12-09-2017 no no TRUE Agata information inform METRIX Silveira ation AIR MA (no GLUCOSE phone) METER DEVICE Use as directed BLOOD GLUCOSE MONITORI NG SUPPL 32867453 401 Active Agata Silveira MA Active no TRUE METRIX no 03-22-20 no no TRUE METRIX Sta cey information BLOOD information 14 informat information BLOOD Bruno (13 GLUCOSE ion GLUCOSE TEST , RMA sources.) TEST IN IN VITRO (no VITRO STRIP STRIP test phone) blood sugar BID Dx: E11.65 GLUCOSE BLOOD 54746704612 Active Ct Ledesma MA Active 03-22-2014 no no TRUE Beth information inform METRIX elijah Carrion BLOOD RMA (no GLUCOSE phone) TEST IN VITRO STRIP test blood sugar BID Dx: E11.65 GLUCOSE BLOOD 09157205 404 Active Beth Carr, RMA Active Problems Active Problems Problem Normalized Date Last Normalized Normalized Provider Kae umana Classification Problem(s) Recorded Problem Problem Sta tus Duration Other upper Allergic Chronic Active Pulse [facility]ette [facility] respiratory [place] [address] Physicians disease (3 to pollen Group (27760) sources.) ( ) Other and Benign Episodic Active [facility] unspecified neoplasm of Physicians benign unspecified Group (93761) neoplasm (4 site (Work Phone: sources.) ) Other Body mass 10-12-2019 - Chronic Active [facility] nutritional; index (BMI) (95796) endocrine; and 36.0-36.9, metabolic adult disorders (3 sources.) Other Body mass Chronic Active [facility] lin nutritional; index (BMI) (30165) endocrine; and 37.0-37.9, metabolic adult disorders (4 sources.) Unclassified Body Mass Chronic Active QIE Admin [facility] inic (20 sources.) Index LLC (68280) 37.0-37.9, (Work Phone: adult Translations: ) [ BMI 37-37.9 adult, BMI 37-37.9 adult, BMI 36-36.9, BMI 37-37.9] Other nervous Carpal tunnel Chronic Active QIE Admin [facility] system syndrome LLC (05827) disorders (20 Translations: (Work Phone: sources.) [ CARPAL TUNNEL ) SYNDROME, CARPAL TUNNEL SYNDROME] Other nervous Chronic pain Chronic Active QIE Admin [facility] system syndrome LLC (97486) disorders (20 Translations: (Work Phone: sources.) [ Chronic pain syndrome, ) Chronic pain syndrome] Residual Family history Episodic Active QIE Admin [facility] codes; of diabetes LLC (13400) unclassified mellitus (Work Phone: (20 sources.) Translations: [ FH DIABETES] ) Other liver Fatty (change Chronic Active SUSY KASSANDRA , DO [facility] Via diseases (1 of) liver, not [place] source.) elsewhere Hospital - classified [place] (18139) Hypertension Hypertensive 10-07-2019 - Chronic Active DESMOND PERAZA [facility] Via with chronic kidney , MD Stark complications disease with Hospital - and secondary stage 1 [place] hypertension through stage (41632) (2 sources.) 4 chronic kidney disease, or unspecified chronic kidney disease Other Morbid 10-12-2019 - Chronic Active [facility] nutritional; (severe) (41863) endocrine; and obesity due to metabolic excess disorders (7 calories sources.) Other Morbid obesity Chronic Active [facility] nutritional; Translations: LLC (47344) endocrine; and [ Morbid (Work Phone: metabolic obesity, disorders (20 Morbid obesity ) sources.) due to excess calories, Obesity, class III, Morbid obesity, Morbid obesity due to excess calories, Obesity, class III, Morbid obesity, Obesity Class II (BMI 35-39.9)] Other Neuralgia, Episodic Active [facility] connective neuritis, and 81594 Physicians tissue disease radiculitis, Group (04551) (3 sources.) unspecified ( ) Other Obesity, Chronic Active [facility] nutritional; unspecified MD (29093) endocrine; and metabolic disorders (4 sources.) Residual Unspecified Chronic [facility] codes; sleep apnea LLC (15667) unclassified Translations: (Work Phone: (20 sources.) [ Sleep apnea, Sleep apnea] ) Past or Other Problems Problem Normalized Date Last Normalized Normalized Provider Fa cility Classification Problem(s) Recorded Problem Problem Sta tus Duration Abdominal pain Abdominal Episodic Completed Jimenez Bouman [facility] (20 sources.) pain, right 18139 Physicians lower quadrant Group (52460) Translations: (Work Phone: [ RLQ ) abdominal pain, RLQ abdominal pain, RLQ abdominal pain, Abdominal Pain, Abdominal Pain, Abdominal Pain, Abdominal pain; unspecified site] Acute and Acute kidney Episodic Completed [facility] unspecified failure, Physicians renal failure unspecified Group (52074) (4 sources.) ( ) Residual Decreased Episodic Completed [facility] codes; libido LLC () unclassified Translations: (Work Phone: (20 sources.) [ DECREASED LIBIDO] ) Unclassified Familial no information no information Delbert [facility] (1 source.) hypercholester (55213) olemia Other female Hypertrophy of Episodic Completed SUSY KASSANDRA , DO [facility] Via genital uterus Mi disorders (1 Hospital - source.) [place] (69212) Unclassified LAB no information no information MD Delbert Del Angel (4 sources.) [facility] (94256) Unclassified Other Episodic Completed E Admin [facility] (20 sources.) nonspecific LLC () (abnormal) (Work Phone: findings on radiological ) and other examinations of body structure Translations: [ OTH NONSPC ABN FINDNG RAD&OTH EXM BODY STRUCTURE, OTH NONSPC ABN FINDNG RAD&OTH EXM BODY STRUCTURE, Screening mammogram, Screening mammogram] Other and Personal Episodic Completed E [facility] unspecified history of LLC () benign colonic polyps (Work Phone: neoplasm (20 Translations: sources.) [ PERSONAL ) HISTORY OF COLONIC POLYPS, PERSONAL HISTORY OF COLONIC POLYPS] Unclassified [id number] no information Completed [facility] (1 source.) [id number] 14929 Physicians [id number] Group (35583) llness_name_3 ( ) Unclassified [id number] no information Completed [facility] (1 source.) [id number] 26068 Physicians [id number] Group (24647) llness_name_3 ( ) Unclassified [id number] no information Completed Jimenez Tiffanie maciel [facility] (1 source.) [id number] 23799 Physicians [id number] Group (23893) llness_name_3 ( ) Procedures Procedure Normalized Procedure Procedure Result Performer Facility Date 10-12-2019 (3060F) Positive no information Delbert Garcia MD [facility] microalbuminuria test (27101) (Work Phone: result documented and ) reviewed 10-12-2019 (3066F) Documentation no information Delbert bynum MD [facility] of treatment for (90184) (Work Phone: nephropathy ) 07-11-2019 (3066F) Documentation no information Delbert bynum MD [facility] of treatment for (87169) (Work Phone: nephropathy ) 07-11-2019 (4013F) Statin therapy no information Delbert matta MD [facility] prescribed or (34277) (Work Phone: currently being taken ) 12-30-2018 Blood count complete no information no [facility] wbc Physicians Justin up 12-30-2018 (70249) (Work Phone: - ) 12-30-2018 12-30-2018 Chest x-ray no information no name [facility] - [facility]icians Group 12-30-2018 (00788) (Work Phone: - ) 12-30-2018 10-12-2019 Collection venous no information Charo Cook [facility] blood venipuncture (97145) (Work Phone: ) 07-11-2019 Collection venous no information Charisma Hudson As [facility] blood venipuncture (92289) (Work Phone: ) 03-10-2019 Collection venous no information Charisma Hudson As [facility] blood venipuncture (73796) (Work Phone: ) 11-30-2018 Collection venous no information Charisma RUST blood venipuncture (12252) (Work Phone: ) 01-07-2018 Collection venous no information no name [facility] - blood venipuncture [facility] 01-07-2018 (02486) (Work Phone: - ) 01-07-2018 12-30-2018 Comprehensive no information no name [facility] - metabolic panel [facility] 12-30-2018 (73088) (Work Phone: - ) 12-30-2018 03-21-2019 Drainage of Pelvic no information no name [facility] (87688) Cavity with Drainage (Work Phone: Device, Open Approach ) 01-19-2019 Drug test prsmv read no information Delbert Garcia MD [facility] direct optical obs pr (81488) (Work Phone: date ) 12-30-2018 Ecg routine ecg no information no name [facility] - w/least 12 lds w/i&r Physicians Grou p 12-30-2018 (46042) (Work Phone: - ) 12-30-2018 12-30-2018 Hemoglobin no information no name [facility] - glycosylated a1c [facility]icians Group 12-30-2018 (59945) (Work Phone: - ) 12-30-2018 05-12-2016 Hemoglobin no information Jade Chavez [facility] glycosylated a1c (53770) (Work Phone: ) 08-19-2018 Iaadiadoo no information no name [facility] streptococcus group a [facility]icians [facility] (24561) ( ) 08-19-2018 [place] no information no name [facility] streptococcus group a [facility] (66258) ( ) 03-21-2019 Insertion of Infusion no information no name L abette [facility] (36257) Device into Spinal (Work Phone: Canal, Percutaneous ) Approach 03-21-2019 Resection of Bilateral no information no name [facility] (45133) Ovaries, Open Approach ( ) 03-21-2019 Resection of Uterus, no information no name [facility] (20662) Supracervical, Open (Work Phone: Approach ) 12-01-2018 pelvic nonobstetric no information no name [facility] - real-time image [facility]icians Group 12-01-2018 complete (68643) (Work Phone : - ) 12-01-2018 Immunizations Normalized Immunization Date Notes Care Provider Facili ty Immunization influenza virus 06-29-2007 no information ANSLEY DYE [id number] The ADEX vaccine, split virus (77484) (Work Phone: (incl. purified ) surface antigen) influenza virus 03-12-2006 no information ANSLEY DYE [id number] The ADEX vaccine, split virus (84461) (Work Phone: (incl. purified ) surface antigen) influenza virus 07-11-2019 - no information QIE Admin [facility] vaccine, unspecified 07-11-2019 (27457) (Work Nicki ne: formulation ) Translations: [ Give Appropriate Flu Vaccine] influenza virus 05-11-2018 - no information QIE Admin [facility] [employer] vaccine, unspecified 05-11-2018 (61926) (Work Nicki ne: formulation ) influenza, 01-10-2019 no information ANSLEY DYE [id number] [employer] [facility] injectable, (25897) (Work Phone: quadrivalent, ) preservative free influenza, seasonal, 07-11-2019 no information QIE Admin [facility] injectable (06447) (Work Phone: ) tetanus toxoid, 01-30-2013 no information ANSLEY DYE [id number] [facility] [employer] reduced diphtheria (39948) (Work Phone: toxoid, and ) acellular pertussis vaccine, adsorbed 29512 - Immun Admin 07-11-2019 no information QIE Admin [facility] 1 vac (68306) (Work Phone: ) Results Test Name Value Interpretation Reference Range Date Time Fa cility (Normalized) (Normalized) (Medline Reference) not yet categorized on null no information (ACCRELATEDVI) : (no code) [place] No~(CONVERSATION Regional ) : [facility] - GP Patient~(FULLREG (33523) ) : [id number]~( GHP_ADDR4) : [address]~(GHP_CSZ4) : [place] [phone]~(GHP_N AME4) : [facility]~(GHP_POL HLDR4) : ELENA RADHA~(GHP_RELTN 4) : SELF~(MSP_REVIEW ED) : [id number]~( FTRELTNCVG) : [employer]~(REALRE LTNCVG) : Real no information (ACCRELATEDVI) : (no code) [place] No~(CONVERSATION Regional ) : [facility] Patient~(FULLREG ([id number]) ) : [id number]~( GHP_ADDR4) : [address]~(GHP_CSZ4) : [place] [id number]~(GHP_N AME4) : [facility]~(GHP_POL HLDR4) : ELENA GARCIA~(GHP_RELTN 4) : SELF~(MSP_REVIEW ED) : [phone]~( PREVPATTYPE) : O~(FTRELTNCVG) : Freetext~(REALRE LTNCVG) : Real no information (FTRELTNCVG) : (no code) [facility]reetext~(REALRE Regional LTNCVG) : [facility] () no information (ACCRELATEDVI) : (no code) [place] No~(CONVERSATION Regional ) : [facility] Patient~(FULLREG ([id number]) ) : [id number]~( PREVPATTYPE) : O~(FTRELTNCVG) : Freetext~(REALRE LTNCVG) : Real laboratory on 2019-10-25 Albumin 4.0 g/dL (NEG) 3.4 - 5.4 g/dL 10-25-2019 PENDING LOCATION [Mass/Vol] 10:50-0400 [facility] (55139) Anion gap 11 mmol/L (NEG) 3 - 11 mmol/L 10-25-2019 PENDING LOCATION [Moles/Vol] 10:50-0400 [facility] (22181) Calcium 10.2 mg/dL (H) 8.5 - 10.2 mg/dL 10-25-2019 PEND ING LOCATION [Mass/Vol] 10:50-0400 [facility] (43138) Chloride 104 mmol/L (NEG) 95 - 106 mmol/L 10-25-2019 PENDI NG LOCATION [Moles/Vol] 10:50-0400 [facility] (39712) CO2 [Moles/Vol] 25 mmol/L (NEG) 23 - 29 mmol/L 10-25-2019 P ENDING LOCATION 10:50-0400 [facility] (05480) Creatinine 1.83 mg/dL (H) 10-25-2019 PENDING LOCATI ON [Mass/Vol] 10:50-0400 [facility] (48758) Creatinine and 28 (no code) 10-25-2019 PENDING LOC ATION Glomerular 10:50-0400 [facility] (34193) filtration rate.predicted panel - Serum, Plasma or Blood Erythrocyte 15.3 % (H) 11.6 - 14.6 % 10-25-2019 PENDIN G LOCATION distribution 10:50-0400 [facility] (11643) width (RBC) [Ratio] Glucose 198 mg/dL (H) 60 - 125 mg/dL 10-25-2019 PENDING LOCATION [Mass/Vol] 10:50-0400 [facility] (98922) Hematocrit (Bld) 31 % (L) 36.1 - 50.3 % 10-25-2019 P ENDING LOCATION [Volume 10:50-0400 [facility] (83563) fraction] Hemoglobin (Bld) 9.6 g/dL (L) 12.1 - 17.2 g/dL 10-25-2019 PENDING LOCATION [Mass/Vol] 10:50-0400 [facility] (26458) MCH (RBC) 27 pg (NEG) 27 - 31 pg 10-25-2019 PENDING LOC ATION [Entitic mass] 10:50-0400 [facility] (65882) MCHC (RBC) 31 g/dL (L) 32 - 36 g/dL 10-25-2019 PENDING LOCATION [Mass/Vol] 10:50-0400 [facility] (96217) MCV (RBC) 89 (NEG) 10-25-2019 PENDING LOCATI ON [Entitic vol] 10:50-0400 [facility] (56404) Phosphate 2.8 mg/dL (NEG) 2.4 - 4.1 mg/dL 10-25-2019 PENDIN G LOCATION [Mass/Vol] 10:50-0400 [facility] (33724) Platelet mean 9.4 (NEG) 10-25-2019 PENDING LOCA TION volume (Bld) 10:50-0400 [facility] (91186) [Entitic vol] Platelets (Bld) 309 10*3/uL (NEG) 150 - 450 10-25-2019 PEND ING LOCATION [#/Vol] 10*3/uL 10:50-0400 [facility] (21817) Potassium 4.9 mmol/L (NEG) 3.7 - 5.2 mmol/L 10-25-2019 PEND ING LOCATION [Moles/Vol] 10:50-0400 [facility] (74318) RBC (Bld) 3.50 10*6/uL (L) 4.2 - 6.1 10-25-2019 PENDING L OCATION [#/Vol] 10*6/uL 10:50-0400 [facility] (89778) Sodium 140 mmol/L (NEG) 135 - 145 mmol/L 10-25-2019 PEND ING LOCATION [Moles/Vol] 10:50-0400 [facility] (81058) Urea nitrogen 17 mg/dL (NEG) 7 - 20 mg/dL 10-25-2019 PENDI NG LOCATION [Mass/Vol] 10:50-0400 [facility] (53274) Urea 9 mg/mg (no code) 6 - 22 mg/mg 10-25-2019 PENDING L OCATION nitrogen/Creatin 10:50-0400 [facility] (52862) ine [Mass ratio] WBC (Bld) 11.4 10*3/uL (H) 3.5 - 10.5 10-25-2019 PENDING LOCATION [#/Vol] 10*3/uL 10:50-0400 [facility] (96230) laboratory on 2019-10-12 Calcium 9.8 mg/dL (no code) 8.5 - 10.2 mg/dL 10-12-2019 [facility] [Mass/Vol] 08:00-0400 [facility] () (Work Phone: ) Chloride 101 mmol/L (no code) 95 - 106 mmol/L 10-12-2019 [facility] [Moles/Vol] 08:00-040 [facility] () (Work Phone: ) Cholesterol 156 mg/dL (no code) 180 - 200 mg/dL 10-12-2019 [facility] [Mass/Vol] 08:00-0400 [facility] () (Work Phone: ) Cholesterol in 53 mg/dL (no code) 10-12-2019 [facility] ic HDL [Mass/Vol] 08: [facility] () (Work Phone: ) Cholesterol in 46 mg/dL (no code) 0 - 100 mg/dL 10-12-2019 [facility] LDL [Mass/Vol] 08:00-040 [facility] () (Work Phone: ) CO2 (BldV) 29.9 mmol/L (no code) 10-12-2019 [facility] [Partial 08:00040 [facility] () pressure] (Work Phone: ) Creatinine 1.53 mg/dL (H) 10-12-2019 [facility] [Mass/Vol] 08:00040 [facility] () (Work Phone: ) GFR/1.73 sq M 37 (?) (no code) 10-12-2019 [facility] predicted among 08: [facility] () non-blacks MDRD (Work Phone: (S/P/Bld) [Vol ) rate/Area] Glucose 313 mg/dL (H) 60 - 125 mg/dL 10-12-2019 [facility] [Mass/Vol] 08:00-0400 [facility] () (Work Phone: ) HbA1c (Bld) 8.7 % (H) 0 - 5.7 % 10-12-2019 [facility] [Mass fraction] 08:00-040 [facility] () (Work Phone: ) Potassium 5.0 mmol/L (no code) 3.7 - 5.2 mmol/L 10-12-2019 [facility] [Moles/Vol] 08:00-040 [facility] () (Work Phone: ) Sodium 136 mmol/L (no code) 135 - 145 mmol/L 10-12-2019 [facility] [Moles/Vol] 08:00040 [facility] () (Work Phone: ) Triglyceride 283 mg/dL (H) 10-12-2019 [facility] post 12 Hr fast : [facility] () [Mass/Vol] (Work Phone: ) Urea nitrogen 24 mg/dL (H) 7 - 20 mg/dL 10-12-2019 [facility] [Mass/Vol] 08:00-040 [facility] () (Work Phone: ) laboratory on 2019-10-06 Albumin 4.3 g/dL (NEG) 3.4 - 5.4 g/dL 10-06-2019 PENDING LOCATION [Mass/Vol] 10:31-0400 [facility] (52611) Anion gap 9 mmol/L (NEG) 3 - 11 mmol/L 10-06-2019 PENDING LOCATION [Moles/Vol] 10:-040 [facility] (95528) Calcium 10.5 mg/dL (H) 8.5 - 10.2 mg/dL 10-06-2019 PEND ING LOCATION [Mass/Vol] 10:31-0400 [facility] (67984) Chloride 103 mmol/L (NEG) 95 - 106 mmol/L 10-06-2019 PENDI NG LOCATION [Moles/Vol] 10:31-0400 [facility] (60101) CO2 [Moles/Vol] 28 mmol/L (NEG) 23 - 29 mmol/L 10-06-2019 P ENDING LOCATION 10:-0400 [facility] (90469) Creatinine 2.09 mg/dL (H) 10-06-2019 PENDING LOCATI ON [Mass/Vol] 10:31-0400 [facility] (88952) Creatinine and 24 (no code) 10-06-2019 PENDING LOC ATION Glomerular 10:31-0400 [facility] (36503) filtration rate.predicted panel - Serum, Plasma or Blood Erythrocyte 15.9 % (H) 11.6 - 14.6 % 10-06-2019 [facility] LOCATION distribution 10:31-0400 [facility] (04278) width (RBC) [Ratio] Glucose 222 mg/dL (H) 60 - 125 mg/dL 10-06-2019 PENDING LOCATION [Mass/Vol] 10:31-0400 [facility] (69680) Hematocrit (Bld) 37 % (NEG) 36.1 - 50.3 % 10-06-2019 P ENDING LOCATION [Volume 10:31-0400 [facility] (46017) fraction] Hemoglobin (Bld) 11.6 g/dL (NEG) 12.1 - 17.2 g/dL 10-06-2019 PENDING LOCATION [Mass/Vol] 10:31-0400 [facility] (42151) MCH (RBC) 28 pg (NEG) 27 - 31 pg 10-06-2019 PENDING LOC ATION [Entitic mass] 10:31-0400 [facility] (38102) MCHC (RBC) 31 g/dL (L) 32 - 36 g/dL 10-06-2019 PENDING LOCATION [Mass/Vol] 10:31-0400 [facility] (95854) MCV (RBC) 88 (NEG) 10-06-2019 PENDING LOCATI ON [Entitic vol] 10:31-0400 [facility] (96023) Phosphate 3.3 mg/dL (NEG) 2.4 - 4.1 mg/dL 10-06-2019 [facility] LOCATION [Mass/Vol] 10:31-0400 [facility] (86587) Platelet mean 9.0 (NEG) 10-06-2019 PENDING LOCA TION volume (Bld) 10:31-0400 [facility] (75488) [Entitic vol] Platelets (Bld) 378 10*3/uL (NEG) 150 - 450 10-06-2019 PEND ING LOCATION [#/Vol] 10*3/uL 10:31-0400 [facility] (04703) Potassium 4.9 mmol/L (NEG) 3.7 - 5.2 mmol/L 10-06-2019 PEND ING LOCATION [Moles/Vol] 10: [facility] (31941) RBC (Bld) 4.21 10*6/uL (L) 4.2 - 6.1 10-06-2019 PENDING L OCATION [#/Vol] 10*6/uL 10: [facility] (97101) Sodium 140 mmol/L (NEG) 135 - 145 mmol/L 10-06-2019 PEND ING LOCATION [Moles/Vol] 10: [facility] (15851) Urea nitrogen 28 mg/dL (H) 7 - 20 mg/dL 10-06-2019 PENDI NG LOCATION [Mass/Vol] 10: [facility] (19652) Urea 13 mg/mg (no code) 6 - 22 mg/mg 10-06-2019 PENDING L OCATION nitrogen/Creatin 10: [facility] (72167) ine [Mass ratio] WBC (Bld) 9.5 10*3/uL (NEG) 3.5 - 10.5 10-06-2019 PENDING L OCATION [#/Vol] 10*3/uL 10: [facility] (56215) laboratory on 2019-07-14 Cholesterol 195 mg/dL (no code) 180 - 200 mg/dL 07-14-2019 Akbar onia [Mass/Vol] 10:0500 [facility] (19248) Cholesterol in 47 mg/dL (no code) 07-14-2019 [place] HDL [Mass/Vol] 10:0 [facility] (71143) Cholesterol in 73 mg/dL (no code) 0 - 100 mg/dL 07-14-2019 Matti donia LDL [Mass/Vol] 10:0500 [facility] (93120) Magnesium 1.6 mg/dL (no code) 1.7 - 2.2 mg/dL 07-14-2019 Fredon ia [Mass/Vol] 10:0 [facility] (13236) Triglyceride 373 mg/dL (H) 0 - 150 mg/dL 07-14-2019 Vahid amanda [Mass/Vol] 10:0500 [facility] (62583) laboratory on 2019-07-11 Albumin (U) >30 Abnormal (H) 07-11-2019 [facility] [Mass/Vol] mg/g 07:00-0500 [facility] (58932) (Work Phone: ) Albumin DL <= 20 30 mg/dL (H) 0.2 - 1.9 mg/dL 07-11-2019 [facility] mg/L (U) 07:00-0500 [facility] (83451) [Mass/Vol] (Work Phone: ) Cholesterol 195 mg/dL (no code) 180 - 200 mg/dL 07-11-2019 Akbar onia [Mass/Vol] 22:04-0500 [facility] (24408) Cholesterol in 49 mg/dL (no code) 07-11-2019 [place] HDL [Mass/Vol] 22:04-0500 [facility] (80673) Cholesterol in 73 mg/dL (no code) 0 - 100 mg/dL 07-11-2019 Matti donia LDL [Mass/Vol] 22:04-0500 [facility] (43987) Erythrocyte 14.4 % (no code) 11.6 - 14.6 % 07-11-2019 [facility] distribution 07:00-0500 [facility] (62161) width (RBC) (Work Phone: [Ratio] ) HbA1c (Bld) 9.0 % (H) 0 - 5.7 % 07-11-2019 [facility] [Mass fraction] 07:00-0500 [facility] (14169) (Work Phone: ) Hematocrit (Bld) 36.9 % (L) 36.1 - 50.3 % 07-11-2019 [facility] [Volume 07:00-0500 [facility] (08854) fraction] (Work Phone: ) Hemoglobin (Bld) 11.5 g/dL (L) 12.1 - 17.2 g/dL 07-11-2019 [facility] [Mass/Vol] 07:00-0500 [facility] (93246) (Work Phone: ) Magnesium 1.5 mg/dL (L) 1.7 - 2.2 mg/dL 07-11-2019 Fredon ia [Mass/Vol] 22:04-0500 [facility] (11166) MCH (RBC) 27.2 pg (no code) 27 - 31 pg 07-11-2019 [facility] [Entitic mass] 07:000500 [facility] () (Work Phone: ) MCHC (RBC) 31.562558 g/dL (L) 32 - 36 g/dL 07-11-2019 [facility] [Mass/Vol] 07:00-0500 [facility] () (Work Phone: ) MCV (RBC) 87 fL (no code) 80 - 100 fL 07-11-2019 [facility] [Entitic vol] 07:00050 [facility] () (Work Phone: ) Platelets (Bld) 333 10^3/MM^3 (no code) 07-11-2019 [facility] [#/Vol] 07:0500 [facility] () (Work Phone: ) RBC (Bld) 4.22 10^6/MM^3 (no code) 07-11-2019 [facility] [#/Vol] 07:00-0500 [facility] () (Work Phone: ) Triglyceride 367 mg/dL (H) 0 - 150 mg/dL 07-11-2019 Vahid amanda [Mass/Vol] 22:04-0500 [facility] (26768) TSH Qn 1.80 m[IU]/L (no code) 0.4 - 4 m[IU]/L 07-11-2019 [facility] 07:00-0500 [facility] () (Work Phone: ) WBC (Bld) 9.3 10^3/MM^3 (no code) 07-11-2019 [facility] [#/Vol] 07:000500 [employer] () (Work Phone: ) laboratory on 2019-04-11 Albumin 3.9 g/dL (N) 3.4 - 5.4 g/dL [facility] [Mass/Vol] [facility] (79897) Calcium 10.1 mg/dL (N) 8.5 - 10.2 mg/dL [facility] [Mass/Vol] [facility] (23337) Chloride 101 mmol/L (N) 95 - 106 mmol/L [facility] [Moles/Vol] [facility] (45175) CO2 [Moles/Vol] 29 mmol/L (N) 23 - 29 mmol/L [facility] (56566) Creatinine 1.60 mg/dL (H) [facility] (27813) GFR/1.73 sq M 40 (L) 90 - 120 [facility] alth predicted among mL/min/{1.73_m2} mL/min/{1.73_m2} [facility] blacks MDRD [facility] (S/P/Bld) [Vol (20791) rate/Area] GFR/1.73 sq 35 (L) 90 - 120 [facility] th M.predicted MDRD mL/min/{1.73_m2} mL/min/{1.73_m2} [facility] (S/P/Bld) [Vol [facility] rate/Area] (13944) Glucose 294 mg/dL (H) 60 - 125 mg/dL [facility] [Mass/Vol] [facility] (08274) Phosphate 3.9 mg/dL (N) 2.4 - 4.1 mg/dL [facility] [Mass/Vol] [facility] (60753) Potassium 5.5 mmol/L (H) 3.7 - 5.2 mmol/L [facility] [Moles/Vol] [facility] (65423) Sodium 137 mmol/L (N) 135 - 145 mmol/L [facility] [Moles/Vol] [facility] (17901) Urea nitrogen 23 mg/dL (N) 7 - 20 mg/dL [facility] [Mass/Vol] [facility] (39984) Urea 14 mg/mg (N) 6 - 22 mg/mg [facility] nitrogen/Creatin [facility] [Mass ratio] [facility] (11395) laboratory on 2019-04-06 Albumin 4.0 g/dL (N) 3.4 - 5.4 g/dL [facility] [Mass/Vol] [facility] (73259) Basophils (Bld) 0.053 10*3/uL (N) 0 - 0.3 10*3/uL [facility] [#/Vol] [facility] (65654) Basophils/100 0.7 % (N) 0.5 - 1 % [facility] WBC (Bld) [facility] (81845) Calcium 10.2 mg/dL (N) 8.5 - 10.2 mg/dL [facility] [Mass/Vol] [facility] (56717) Chloride 100 mmol/L (N) 95 - 106 mmol/L [facility] [Moles/Vol] [facility] (50221) CO2 [Moles/Vol] 30 mmol/L (N) 23 - 29 mmol/L [facility] (68717) Creatinine 1.68 mg/dL (H) [facility] [[facility]] [facility] (38346) Eosinophils 0.428 10*3/uL (N) 0.05 - 0.5 [facility] alth (Bld) [#/Vol] 10*3/uL [facility] (32755) Eosinophils/100 5.7 % (N) 1 - 4 % [facility] WBC (Bld) [facility] (21335) Erythrocyte 13.5 % (N) 11.6 - 14.6 % [facility] width (RBC) [facility] [Ratio] (43690) GFR/1.73 sq M 38 (L) 90 - 120 [facility] predicted among mL/min/{1.73_m2} mL/min/{1.73_m2} [facility] MDRD [facility] (S/P/Bld) [Vol (29117) rate/Area] GFR/1.73 sq 33 (L) 90 - 120 [facility] M.predicted MDRD mL/min/{1.73_m2} mL/min/{1.73_m2} [facility] (S/P/Bld) [Vol [facility] rate/Area] (84035) Glucose 281 mg/dL (H) 60 - 125 mg/dL [facility] [Mass/Vol] [facility] (77497) Hematocrit (Bld) 31.6 % (L) 36.1 - 50.3 % [facility] [Volume [facility] (84854) Hemoglobin (Bld) 9.8 g/dL (L) 12.1 - 17.2 g/dL [facility] Health [Mass/Vol] [facility] (13927) Lymphocytes 1.485 10*3/uL (N) 0.9 - 2.9 [facility] alth (Bld) [#/Vol] 10*3/uL [facility] (22735) Lymphocytes/100 19.8 % (N) 20 - 40 % [facility] WBC (Bld) [facility] (96712) MCH (RBC) 28.4 pg (N) 27 - 31 pg [facility] [Entitic mass] [facility] (20512) MCHC (RBC) 31.0 g/dL (L) 32 - 36 g/dL [facility] [Mass/Vol] [facility] (39890) MCV (RBC) 91.6 fL (N) 80 - 100 fL [facility] [Entitic vol] [facility] (15830) Monocytes (Bld) 0.458 10*3/uL (N) 0.3 - 0.9 [facility] Health [#/Vol] 10*3/uL [facility] (59268) Monocytes/100 6.1 % (N) 2 - 8 % [facility] WBC (Bld) [facility] (38105) Neutrophils 5.078 10*3/uL (N) 1.7 - 7 10*3/uL [facility] (Bld) [#/Vol] [facility] (78079) Neutrophils/100 67.7 % (N) 40 - 60 % [facility] WBC (Bld) [facility] (89867) Phosphate 4.0 mg/dL (N) 2.4 - 4.1 mg/dL [facility] [Mass/Vol] [facility] (91778) Platelet mean 9.6 fL (N) 7.2 - 11.7 fL [facility] Health volume (Bld) [facility] [Entitic vol] [facility] (24377) Platelets (Bld) 454 10*3/uL (H) 150 - 450 [facility] Health [#/Vol] 10*3/uL [facility] (42758) Potassium 5.6 mmol/L (H) 3.7 - 5.2 mmol/L [facility] [Moles/Vol] [facility] (34886) RBC (Bld) 3.45 10*6/uL (L) 4.2 - 6.1 [facility] [#/Vol] 10*6/uL [facility] (69859) Sodium 138 mmol/L (N) 135 - 145 mmol/L [facility] [Moles/Vol] [facility] (37343) Urea nitrogen 22 mg/dL (N) 7 - 20 mg/dL [facility] [Mass/Vol] [facility] (36795) Urea 13 mg/mg (N) 6 - 22 mg/mg [facility] nitrogen/Creatin [facility] [Mass ratio] [facility] (53623) WBC (Bld) 7.5 10*3/uL (N) 3.5 - 10.5 [facility] [#/Vol] 10*3/uL [facility] (45817) phosphate [mass/vol] on 2019-03-23 Phosphate 2.9 mg/dL (no code) 2.4 - 4.1 mg/dL [facility] ealt [Mass/Vol] (67798) ( ) magnesium [mass/vol] on 2019-03-23 Magnesium 1.4 mg/dL (L) 1.7 - 2.2 mg/dL [facility] [Mass/Vol] (15032) ( ) comprehensive metabolic 2000 panel on 2019-03-23 AGE 58 yrs (no code) [facility] (88351) ( ) Albumin 4.0 g/dL (no code) 3.4 - 5.4 g/dL [facility] [Mass/Vol] (41762) ( ) ALP [Catalytic 72 U/L (no code) 44 - 147 U/L [facility] activity/Vol] (37078) ( ) ALT [Catalytic 75 U/L (H) 4 - 40 U/L [facility] activity/Vol] (90598) ( ) AST [Catalytic 54 U/L (H) 10 - 34 U/L [facility] activity/Vol] (38305) ( ) Bilirubin 0.6 mg/dL (no code) 0.1 - 1.2 mg/dL [facility] [Mass/Vol] (31528) ( ) Calcium 10.1 mg/dL (no code) 8.5 - 10.2 mg/dL [facility] [Mass/Vol] (19446) ( ) Chloride 101 mmol/L (no code) 95 - 106 mmol/L [facility] [Moles/Vol] (82459) ( ) CO2 [Moles/Vol] 25 mmol/L (no code) 23 - 29 mmol/L [facility] (61714) ( ) Creatinine 2.04 mg/dL (H) [facility] [Mass/Vol] (55730) ( ) eGFR 25 mL/min/1.7 (no code) [facility] (00370) ( ) eGFR AA* 30 mL/min/1.7 (no code) [facility] (46672) ( ) GFR AA 30 (no code) [facility] (51568) ( ) GFR NonAA 25 (no code) [facility] (88270) ( ) Glucose 136 mg/dL (H) 60 - 125 mg/dL [facility] [Mass/Vol] (72313) ( ) Potassium 4.2 mmol/L (no code) 3.7 - 5.2 mmol/L [facility] [Moles/Vol] (52369) ( ) Protein 7.1 g/dL (no code) 6.4 - 8.3 g/dL [facility] [Mass/Vol] (83870) ( ) Sodium 137 mmol/L (no code) 135 - 145 mmol/L [facility] [Moles/Vol] (72487) ( ) Urea nitrogen 22 mg/dL (no code) 7 - 20 mg/dL [facility] [Mass/Vol] (11131) ( ) cbc w reflex manual differential panel (bld) on 2019-03-23 Basophils (Bld) 0.03 10*3/uL (no code) 0 - 0.3 10*3/uL [facility] [#/Vol] (61216) ( ) Basophils/100 0.3 % (no code) 0.5 - 1 % [facility] WBC (Bld) (90665) ( ) Eosinophils 0.21 10*3/uL (no code) 0.05 - 0.5 [facility] (Bld) [#/Vol] 10*3/uL (71354) ( ) Eosinophils/100 2.0 % (no code) 1 - 4 % [facility] WBC (Bld) (39448) ( ) Erythrocyte 14.3 % (no code) 11.6 - 14.6 % [facility] distribution (70201) (Work width (RBC) Phone: [Ratio] ) Hematocrit (Bld) 31.3 % (L) 36.1 - 50.3 % [facility] [Volume (66228) (Work fraction] ) Hemoglobin (Bld) 9.7 g/dL (L) 12.1 - 17.2 g/dL [facility] [Mass/Vol] (65576) ( ) Lymphocytes 2.66 10*3/uL (no code) 0.9 - 2.9 [facility] (Bld) [#/Vol] 10*3/uL (11003) ( ) Lymphocytes/100 24.7 % (no code) 20 - 40 % [facility] WBC (Bld) (84177) ( ) MANUAL DIFF NOT IND (no code) [facility] (96729) ( ) MCH (RBC) 28.5 pg (no code) 27 - 31 pg [facility] [Entitic mass] (45722) ( ) MCHC (RBC) 31.0 g/dL (no code) 32 - 36 g/dL [facility] [Mass/Vol] (86881) ( ) MCV (RBC) 92 fL (no code) 80 - 100 fL [facility] [Entitic vol] (85991) ( ) Monocytes (Bld) 0.57 10*3/uL (no code) 0.3 - 0.9 [facility] [#/Vol] 10*3/uL (16670) ( ) Monocytes/100 5.3 % (no code) 2 - 8 % [facility] WBC (Bld) (55002) ( ) Neutrophils 7.26 10*3/uL (no code) 1.7 - 7 10*3/uL [facility] (Bld) [#/Vol] (29774) ( ) Neutrophils/100 67.4 % (no code) 40 - 60 % [facility] WBC (Bld) (91258) ( ) NRBC% 0.0 /100WBC (no code) [facility] (72434[facility] ( ) Nucleated RBC 0.00 10*3/uL (no code) 0 - 0 10*3/uL [facility] (Bld) [#/Vol] (55177) ( ) Platelet mean 9.6 fL (no code) 7.2 - 11.7 fL [facility] volume (Bld) (30293) (Work [Entitic vol] ) Platelets (Bld) 280 10*3/uL (no code) 150 - 450 [facility] [#/Vol] 10*3/uL (27024) ( ) RBC (Bld) 3.40 10*6/uL (L) 4.2 - 6.1 [facility] [#/Vol] 10*6/uL (71573) ( ) RDW SD 48 FL (no code) [facility] (88933) ( ) WBC other/100 10.8 TH/CMM (no code) [facility] WBC (Bld) (25056) ( ) tsh dl <= 0.005 miu/l qn on 2019-03-22 TSH Qn 0.25 m[IU]/L (L) 0.4 - 4 m[IU]/L [facility] (81247) ( ) t4 [mass/vol] on 2019-03-22 T4 [Mass/Vol] 8.4 ug/dL (no code) 4.5 - 11.7 ug/dL [facility] (15536) ( ) phosphate [mass/vol] on 2019-03-22 Phosphate 2.4 mg/dL (L) 2.4 - 4.1 mg/dL [facility] [Mass/Vol] (28202) ( ) magnesium [mass/vol] on 2019-03-22 Magnesium 1.6 mg/dL (L) 1.7 - 2.2 mg/dL [facility] [Mass/Vol] (64825) ( ) comprehensive metabolic 2000 panel on 2019-03-22 AGE 58 yrs (no code) [facility] (72099) ( ) Albumin 3.8 g/dL (no code) 3.4 - 5.4 g/dL [facility] [Mass/Vol] (30156) ( ) ALP [Catalytic 68 U/L (no code) 44 - 147 U/L [facility] activity/Vol] (36530) ( ) ALT [Catalytic 156 U/L (H) 4 - 40 U/L [facility] activity/Vol] (04041) ( ) AST [Catalytic 138 U/L (H) 10 - 34 U/L [facility] activity/Vol] (50124) ( ) Bilirubin 0.5 mg/dL (no code) 0.1 - 1.2 mg/dL [facility] [Mass/Vol] (86699) ( ) Calcium 9.6 mg/dL (no code) 8.5 - 10.2 mg/dL [facility] [Mass/Vol] (71457) ( ) Chloride 106 mmol/L (no code) 95 - 106 mmol/L [facility] [Moles/Vol] (85173) ( ) CO2 [Moles/Vol] 25 mmol/L (no code) 23 - 29 mmol/L [facility] (81012) ( ) Creatinine 1.94 mg/dL (H) [facility] [Mass/Vol] (18179) ( ) eGFR 26 mL/min/1.7 (no code) [facility] (67342) ( ) eGFR AA* 32 mL/min/1.7 (no code) [facility] (69898) ( ) GFR AA 32 (no code) [facility] (13194) ( ) GFR NonAA 26 (no code) [facility] (50332) ( ) Glucose 185 mg/dL (H) 60 - 125 mg/dL [facility] [Mass/Vol] (07830) ( ) Potassium 4.8 mmol/L (no code) 3.7 - 5.2 mmol/L [facility] [Moles/Vol] (17933) ( ) Protein 6.5 g/dL (no code) 6.4 - 8.3 g/dL [facility] [Mass/Vol] (05945) ( ) Sodium 141 mmol/L (no code) 135 - 145 mmol/L [facility] [Moles/Vol] (32543) ( ) Urea nitrogen 21 mg/dL (no code) 7 - 20 mg/dL [facility] [Mass/Vol] (26708) ( ) cbc w reflex manual differential panel (bld) on 2019-03-22 Basophils (Bld) 0.02 10*3/uL (no code) 0 - 0.3 10*3/uL [facility] [#/Vol] (98028) ( ) Basophils/100 0.2 % (no code) 0.5 - 1 % [facility] WBC (Bld) (49337) ( ) Eosinophils 0.00 10*3/uL (no code) 0.05 - 0.5 [facility] (Bld) [#/Vol] 10*3/uL (85121) ( ) Eosinophils/100 0.0 % (no code) 1 - 4 % [facility] WBC (Bld) (13751) ( ) Erythrocyte 14.0 % (no code) 11.6 - 14.6 % [facility] distribution (55211) (Work width (RBC) Phone: [Ratio] ) Hematocrit (Bld) 29.5 % (L) 36.1 - 50.3 % [facility] [Volume (40163) (Work fraction] ) Hemoglobin (Bld) 9.3 g/dL (L) 12.1 - 17.2 g/dL [facility] [Mass/Vol] (23494) ( ) Lymphocytes 1.38 10*3/uL (no code) 0.9 - 2.9 [facility] (Bld) [#/Vol] 10*3/uL (16517) ( ) Lymphocytes/100 14.4 % (no code) 20 - 40 % [facility] WBC (Bld) (77696) ( ) MANUAL DIFF NOT IND (no code) [facility] (56335) ( ) MCH (RBC) 28.9 pg (no code) 27 - 31 pg [facility] [Entitic mass] (55962) ( ) MCHC (RBC) 31.5 g/dL (no code) 32 - 36 g/dL [facility] [Mass/Vol] (41853) ( ) MCV (RBC) 92 fL (no code) 80 - 100 fL [facility] [Entitic vol] (33891) ( ) Monocytes (Bld) 0.54 10*3/uL (no code) 0.3 - 0.9 [facility] [#/Vol] 10*3/uL (25740) ( ) Monocytes/100 5.6 % (no code) 2 - 8 % [facility] WBC (Bld) (08138) ( ) Neutrophils 7.58 10*3/uL (no code) 1.7 - 7 10*3/uL [facility] (Bld) [#/Vol] ([id number]) ( ) Neutrophils/100 79.4 % (no code) 40 - 60 % [facility] WBC (Bld) (87932) ( ) NRBC% 0.0 /100WBC (no code) [facility] (08331) ( ) Nucleated RBC 0.00 10*3/uL (no code) 0 - 0 10*3/uL [facility] (Bld) [#/Vol] ([id number]) ( ) Platelet mean 9.3 fL (no code) 7.2 - 11.7 fL [facility] volume (Bld) (76118) (Work [Entitic vol] ) Platelets (Bld) 265 10*3/uL (no code) 150 - 450 [facility] [#/Vol] 10*3/uL (06284) ( ) RBC (Bld) 3.22 10*6/uL (L) 4.2 - 6.1 [facility] [#/Vol] 10*6/uL (22773) ( ) RDW SD 47 FL (no code) [facility] (36174) ( ) WBC other/100 9.6 TH/CMM (no code) [facility] WBC (Bld) (01212) ( ) hcg ( test) ql (u) on 2019-03-21 HCG ( Negative (no code) [facility] test) Ql (U) (85094) ( ) glucose glucometer (bldc) [mass/vol] on 2019-03-21 Glucose 101 mg/dL (H) 60 - 125 mg/dL [facility] [Mass/Vol] (08585) ( ) Glucose 246 mg/dL (H) 60 - 125 mg/dL [facility] [Mass/Vol] (29211) ( ) blood type and crossmatch panel (bld) on 2019-03-21 ABO and Rh group Positive (no code) [facility] panel - Blood (06205) ( ) Antibody Negative (no code) [facility] Screen-Gel (09512) ( ) laboratory on 2019-03-10 Calcium 9.7 mg/dL (no code) 8.5 - 10.2 mg/dL 03-10-2019 [facility] [Mass/Vol] 13:00-0400 [facility] ([id number]) (Work Phone: ) Chloride 98 mmol/L (no code) 95 - 106 mmol/L 03-10-2019 [facility] [Moles/Vol] 13:00-0400 [facility] (55913) (Work Phone: ) CO2 (BldV) 34.1 mmol/L (H) 03-10-2019 [facility] [Partial 13:00-0400 LLC ([id number]) pressure] (Work Phone: ) Creatinine 2.22 mg/dL (H) 03-10-2019 [facility] [Mass/Vol] 13:00-0400 [facility] ([id number]) (Work Phone: ) GFR/1.73 sq M 24 (?) (no code) 03-10-2019 [facility] predicted among 13:00-0400 [facility] ([id number]) non-blacks MDRD (Work Phone: (S/P/Bld) [Vol ) rate/Area] Glucose 262 mg/dL (H) 60 - 125 mg/dL 03-10-2019 [facility] [Mass/Vol] 13:00-0400 LLC (00951) (Work Phone: ) HbA1c (Bld) 8.6 % (H) 0 - 5.7 % [facility] ([id number]) (Work Phone: ) Potassium 4.9 mmol/L (no code) 3.7 - 5.2 mmol/L 03-10-2019 [facility] [Moles/Vol] 13:00-0400 LLC () (Work Phone: ) Sodium 137 mmol/L (no code) 135 - 145 mmol/L 03-10-2019 [facility] [Moles/Vol] 13:00-0400 LLC () (Work Phone: ) Urea nitrogen 31 mg/dL (H) 7 - 20 mg/dL 03-10-2019 [facility] [Mass/Vol] 13:00-0400 LLC () (Work Phone: ) laboratory on 2019-01-19 Drugs identified Ordered (no code) 01-19-2019 [facility] inic Screen Nom (U) 13:00-0400 LLC () (Work Phone: ) other on 2018-11-30 CO2 (BldV) 35.1 mmol/L (H) 11-30-2018 [facility] [Partial 13:00-0400 LLC ([id number]) pressure] (Work Phone: ) metabolic panel on 2018-11-30 Calcium 9.8 mg/dL (no code) 8.5 - 10.2 mg/dL 11-30-2018 [facility] [Mass/Vol] 13:00-0400 LLC () (Work Phone: ) Chloride 103 mmol/L (no code) 95 - 106 mmol/L 11-30-2018 [facility] [Moles/Vol] 13:00-0400 LLC ([id number]) (Work Phone: ) Creatinine 1.76 mg/dL (H) 11-30-2018 [facility] [Mass/Vol] 13:00-0400 LLC () (Work Phone: ) GFR/1.73 sq M 31 (?) (no code) 11-30-2018 [facility] predicted among 13:00-0400 [facility] () non-blacks MDRD (Work Phone: (S/P/Bld) [Vol ) rate/Area] Glucose 203 mg/dL (H) 60 - 125 mg/dL 11-30-2018 [facility] [Mass/Vol] 13:00-0400 [facility] () (Work Phone: ) Potassium 4.9 mmol/L (no code) 3.7 - 5.2 mmol/L 11-30-2018 [facility] [Moles/Vol] 13:00-0400 [facility] () (Work Phone: ) Sodium 141 mmol/L (no code) 135 - 145 mmol/L 11-30-2018 [facility] [Moles/Vol] 13:00-0400 [facility] () (Work Phone: ) Urea nitrogen 13 mg/dL (no code) 7 - 20 mg/dL 11-30-2018 [facility] [Mass/Vol] 13:00-0400 [facility] () (Work Phone: ) other on 2018-10-26 CO2 (BldV) 35.3 mmol/L (H) 10-26-2018 [facility] [Partial 13:00-0400 LLC () pressure] (Work Phone: ) metabolic panel on 2018-10-26 Calcium 10.6 mg/dL (H) 8.5 - 10.2 mg/dL 10-26-2018 [facility] [Mass/Vol] 13:00-0400 [facility] () (Work Phone: ) Chloride 97 mmol/L (L) 95 - 106 mmol/L 10-26-2018 [facility] [Moles/Vol] 13:00-0400 [facility] () (Work Phone: ) Creatinine 2.33 mg/dL (H) 10-26-2018 [facility] [Mass/Vol] 13:00-0400 [facility] () (Work Phone: ) GFR/1.73 sq M 23 (?) (no code) 10-26-2018 [facility] predicted among 13:000400 [facility] () non-blacks MDRD (Work Phone: (S/P/Bld) [Vol ) rate/Area] Glucose 239 mg/dL (H) 60 - 125 mg/dL 10-26-2018 [facility] [Mass/Vol] 13:00-0400 [facility] () (Work Phone: ) HbA1c (Bld) 8.0 % (H) 0 - 5.7 % 10-26-2018 [facility] [Mass fraction] 13:000400 [facility] () (Work Phone: ) Potassium 4.9 mmol/L (no code) 3.7 - 5.2 mmol/L 10-26-2018 [facility] [Moles/Vol] 13:00-0400 [facility] () (Work Phone: ) Sodium 136 mmol/L (no code) 135 - 145 mmol/L 10-26-2018 [facility] [Moles/Vol] 13:00-0400 [facility] () (Work Phone: ) Urea nitrogen 31 mg/dL (H) 7 - 20 mg/dL 10-26-2018 [facility] [Mass/Vol] 13:00-0400 [facility] () (Work Phone: ) other on 2018-09-21 S. pyogenes Org Negative (no code) 09-21-2018 [facility] specific cx Ql 08:21-0400 [facility] ([id number]) ( ) laboratory on 2018-09-21 S. pyogenes Org Negative (no code) 09-21-2018 [facility] specific cx Ql 03:21-0400 [facility] (Throat) ([id number]) ( ) other on 2018-05-11 CO2 ppres (BldV) 32.5 mmol/L (H) 05-11-2018 [facility] 13:00-0500 [facility] ([id number]) (Work Phone: ) Erythrocyte 13.1 % (no code) 11.6 - 14.6 % 05-11-2018 [facility] distribution 13:00-0500 LLC (86665) width (RBC) (Work Phone: [Ratio] ) MCHC (RBC) 31.6 g/dL (L) 32 - 36 g/dL 05-11-2018 [facility] [Mass/Vol] 13:00-0500 [facility] (69413) (Work Phone: ) Triglyceride 12 357 mg/dL (H) 05-11-2018 [facility] devin hours fasting 13:000500 [facility] (51741) mass conc (Work Phone: ) WBC Manual cnt 6.8 10^3/MM^3 (no code) 05-11-2018 [facility] #/vol (Bld) 13:000500 [facility] ([id number]) (Work Phone: ) metabolic panel on 2018-05-11 ALP enzyme 63 U/L (no code) 44 - 147 U/L 05-11-2018 [facility] act/vol 13:00-0500 [facility] ([id number]) (Work Phone: ) ALT enzyme 37 U/L (no code) 4 - 40 U/L 05-11-2018 [facility] act/vol 13:00-0500 [facility] ([id number]) (Work Phone: ) AST enzyme 17 U/L (no code) 10 - 34 U/L 05-11-2018 [facility] act/vol 13:000500 [facility] ([id number]) (Work Phone: ) Bilirubin mass 0.40 mg/dL (no code) 0.1 - 1.2 mg/dL 05-11-2018 [facility] conc 13:00-0500 LLC ([id number]) (Work Phone: ) Calcium mass 9.2 mg/dL (no code) 8.5 - 10.2 mg/dL 05-11-2018 [facility] conc 13:00-0500 [facility] ([id number]) (Work Phone: ) Chloride molar 101 mmol/L (no code) 95 - 106 mmol/L 05-11-2018 [facility] conc 13:00-0500 LLC ([id number]) (Work Phone: ) Creatinine mass 1.74 mg/dL (H) 05-11-2018 [facility] conc 13:00-0500 [facility] () (Work Phone: ) GFR/1.73 sq M 32 (?) (no code) 05-11-2018 [facility] predicted among 13:000500 [facility] () non-blacks MDRD (Work Phone: vol rate/area ) (S/P/Bld) Glucose mass 150 mg/dL (H) 60 - 125 mg/dL 05-11-2018 [facility] conc 13:00-0500 [facility] () (Work Phone: ) Hemoglobin 8.5 % (H) 0 - 5.7 % 05-11-2018 [facility] A1c/Hemoglobin.t 13:00-0500 [facility] () otal mass (Work Phone: fraction (Bld) ) Potassium molar 4.4 mmol/L (no code) 3.7 - 5.2 mmol/L 05-11-2018 [facility] conc 13:00-0500 LLC ([id number]) (Work Phone: ) Sodium molar 142 mmol/L (no code) 135 - 145 mmol/L 05-11-2018 [facility] conc 13:00-0500 [facility] () (Work Phone: ) Urea nitrogen 18 mg/dL (no code) 7 - 20 mg/dL 05-11-2018 [facility] mass conc 13:00-0500 LLC ([id number]) (Work Phone: ) laboratory on 2018-05-11 MCHC (RBC) 31.474827 g/dL (L) 32 - 36 g/dL 05-11-2018 [facility] [Mass/Vol] 07:00-0500 LLC ([id number]) (Work Phone: ) hematology on 2018-05-11 Erythrocyte 13.1 % (no code) 11.6 - 14.6 % 05-11-2018 [facility] distribution 13:00-0500 LLC (47025) width Auto Ratio (Work Phone: (RBC) ) Hematocrit (Bld) 38.0 % (no code) 36.1 - 50.3 % 05-11-2018 [facility] [Volume 13:00-0500 LLC (86095) fraction] (Work Phone: ) Hematocrit Auto 38.0 % (no code) 36.1 - 50.3 % 05-11-2018 [facility] Volume Fraction 13:00-0500 LLC ([id number]) (Bld) (Work Phone: ) Hemoglobin mass 12.0 g/dL (no code) 12.1 - 17.2 g/dL 05-11-2018 [facility] conc (Bld) 13:00-0500 LLC ([id number]) (Work Phone: ) MCH (RBC) 29.4 pg (no code) 27 - 31 pg 05-11-2018 [facility] ic [Entitic mass] 13:00-0500 LLC ([id number]) (Work Phone: ) MCH Auto Entitic 29.4 pg (no code) 27 - 31 pg 05-11-2018 [facility] mass (RBC) 13:00-0500 LLC ([id number]) (Work Phone: ) MCHC Auto mass 31.6 g/dL (L) 32 - 36 g/dL 05-11-2018 [facility] conc (RBC) 13:00-0500 LLC ([id number]) (Work Phone: ) MCV (RBC) 93 fL (no code) 80 - 100 fL 05-11-2018 [facility] devin [Entitic vol] 13:00-0500 LLC ([id number]) (Work Phone: ) MCV Auto Entitic 93 fL (no code) 80 - 100 fL 05-11-2018 [facility] volume (RBC) 13:00-0500 LLC ([id number]) (Work Phone: ) Platelets (Bld) 326 10^3/MM^3 (no code) 05-11-2018 [facility] [#/Vol] 13:00-0500 [facility] () (Work Phone: ) Platelets Auto 326 10^3/MM^3 (no code) 05-11-2018 [facility] #/vol (Bld) 13:00-0500 LLC () (Work Phone: ) RBC (Bld) 4.09 10^6/MM^3 (no code) 05-11-2018 [facility] ic [#/Vol] 13:00-0500 LLC () (Work Phone: ) RBC Auto #/vol 4.09 10^6/MM^3 (no code) 05-11-2018 [facility] (Bld) 13:00-0500 [facility] () (Work Phone: ) WBC (Bld) 6.8 10^3/MM^3 (no code) 05-11-2018 [facility] [#/Vol] 13:00-0500 [facility] () (Work Phone: ) cardiac on 2018-05-11 Cholesterol in 49 mg/dL (no code) 05-11-2018 [facility] HDL mass conc 13:00-0500 LLC () (Work Phone: ) Cholesterol in 103.00 mg/dL (no code) 0 - 100 mg/dL 05-11-2018 [facility] LDL mass conc 13:00-0500 [facility] ([id number]) (Work Phone: ) Cholesterol mass 218 mg/dL (H) 180 - 200 mg/dL 05-11-2018 [facility] conc 13:00-0500 [facility] () (Work Phone: ) thyroid on 2018-01-29 Thyrotropin Qn 8.56 m[iU]/mL (H) 01-29-2018 [facility] 13:00-0400 [facility] () (Work Phone: ) metabolic panel on 2018-01-29 Hemoglobin 7.4 % (H) 0 - 5.7 % 01-29-2018 [facility] A1c/Hemoglobin.t 13:00-0400 LLC () otal mass (Work Phone: fraction (Bld) ) other on 2017-11-17 CO2 ppres (BldV) 29.1 mmol/L (no code) 11-17-2017 [facility]: [facility] () (Work Phone: ) metabolic panel on 2017-11-17 Calcium 9.7 mg/dL (no code) 9 - 11 mg/dL 11-17-2017 [facility]: [facility] () (Work Phone: ) Chloride 102 mmol/L (no code) 95 - 106 mmol/L 11-17-2017 [facility] 13: [facility] () (Work Phone: ) CO2 29.1 mmol/L (no code) 23 - 29 mmol/L 11-17-2017 [facility] 13: [facility] () (Work Phone: ) Creatinine 1.97 mg/dL (H) 11-17-2017 [facility] 13: [facility] () (Work Phone: ) Glucose 179 mg/dL (H) 60 - 125 mg/dL 11-17-2017 [facility] 13: [facility] () (Work Phone: ) Glucose mass 179 mg/dL (H) 60 - 125 mg/dL 11-17-2017 [facility] conc 13: [facility] () (Work Phone: ) Potassium 4.8 mmol/L (no code) 3.5 - 5.1 mmol/L 11-17-2017 [facility] 13: [facility] () (Work Phone: ) Sodium 139 mmol/L (no code) 135 - 147 mmol/L 11-17-2017 [facility] 13: [facility] () (Work Phone: ) Urea nitrogen 31 mg/dL (H) 7 - 20 mg/dL 11-17-2017 [facility] 13:00-0400 LLC () (Work Phone: ) other on 2017-08-20 drug screen, Negative (no code) 08-20-2017 [facility] urine, 13:00-0400 LLC ([id number]) qualitative (Work Phone: ) Drugs identified Negative (no code) 08-20-2017 [facility] inic Screen Nom (U) 13:00-0400 LLC ([id number]) (Work Phone: ) other on 2017-05-20 Triglyceride 12 329 mg/dL (H) 05-20-2017 [facility] hours fasting 13:00-0500 LLC ([id number]) mass conc (Work Phone: ) other on 2017-02-24 CO2 ppres (BldV) 28.7 mmol/L (no code) 02-24-2017 [facility] 13:00-0400 [facility] ([id number]) (Work Phone: ) metabolic panel on 2017-02-24 Glucose mass 218 mg/dL (H) 60 - 125 mg/dL 02-24-2017 [facility] conc 13:00-0400 LLC ([id number]) (Work Phone: ) Vital Signs Vital Sign Value Interpretation Reference Date Time Care [facility] ider Facility (Normalized) (Normalized) Range BMI (Body Mass 37.93 kg/m2 (no code) 15 - 25 kg/m2 11-16-2018 Shun Gresham [facility] Index) 16:49-0400 [id number] [facility] ([id number]) ( ) BMI (Body Mass 36.18 kg/m2 (no code) 15 - 25 kg/m2 08-19-2018 Ruth Weir [facility] Index) 18:33-0400 [facility] ([id number]) ( ) Body height 168.91 cm (no code) cm 10-12-2019 QIE Admin A [facility] 08:00-0400 LLC ([id number]) (Work Phone: ) Body height 168.91 cm (no code) cm 07-11-2019 QIE Admin A [facility] 07:00-0500 LLC ([id number]) (Work Phone: ) Body height 167.64 cm (no code) cm [facility]-05-[facility] [id number] [facility] ([id number]) ( ) Body height 167.64 cm (no code) cm 11-16-2018 [facility] 11:49-0400 48770 [facility] ([id number]) ( ) Body height 170.18 cm (no code) cm 08-19-2018 [facility]-0400 76281 [facility] ([id number]) ( ) Body mass 36.8 kg/m2 (no code) 15 - 25 kg/m2 04-05-2019 Jimenez Ian janell [facility] index (BMI) 09:130500 73629 [facility] [Ratio] Group ([id number]) ( ) Body mass 37.93 kg/m2 (no code) 15 - 25 kg/m2 11-16-2018 Jimenez Wilson man [facility] index (BMI) 11:49-0400 [id number] [facility] [Ratio] Group ([id number]) ( ) Body mass 36.18 kg/m2 (no code) 15 - 25 kg/m2 08-19-2018 Jimenez B ouman [facility] index (BMI) 13:33-0400 29035 [facility] [Ratio] Group ([id number]) ( ) Body surface 2.19 m2 (no code) 1.07 - 1.9 m2 04-05-2019 Jimenez B [facility] area Derived 09:130500 [id number] [facility] Group ([id number]) ( ) Body surface 2.23 m2 (no code) 1.07 - 1.9 m2 11-16-2018 [facility] area Derived 11:49-0400 97742 [facility] ([id number]) ( ) Body surface 2.23 m2 (no code) 1.07 - 1.9 m2 08-19-2018 Jimenez reyna [facility] area Derived 13:33-0400 [id number] [facility] from [facility] Group ([id number]) ( ) Body 96.3 [degF] (no code) 97.8 - 99.0 10-12-2019 QIE Admin [facility] temperature [degF] 08:00-0400 LLC ([id number]) (Work Phone: ) Body 98.6 [degF] (no code) 97.8 - 99.0 07-11-2019 QIE Admin [facility] temperature [degF] 07:00-0500 LLC ([id number]) (Work Phone: ) Body 98.6 [degF] (no code) 97.8 - 99.0 04-12-2019 QIE Admin [facility] Temperature [degF] 07:00-0500 LLC ([id number]) (Work Phone: ) Body 96.8 [degF] (no code) 97.8 - 99.0 04-05-2019 Jimenez maciel [facility] temperature [degF] 09:13-0500 [id number] [facility] ([id number]) ( ) Body 98.78 [degF] (no code) 97.8 - 99.0 03-24-2019 ANSLEY [facility] Temperature [degF] 09:52-0400 [id number] ([id number]) (Wor k ) Body 97.16 [degF] (no code) 97.8 - 99.0 03-21-2019 ANSLEY [facility] Temperature [degF] 16:30-0400 [id number] ([id number]) (Wor k ) Body 98.2 [degF] (no code) 97.8 - 99.0 01-19-2019 QIE Admin [facility] Temperature [degF] 13:00-0400 LLC ([id number]) (Work Phone: ) Body 96.8 [degF] (no code) 97.8 - 99.0 12-17-2018 Jimenez Boum an [facility] Temperature [degF] 16:280400 93135 [facility] ([id number]) ( ) Body 96.8 [degF] (no code) 97.8 - 99.0 12-17-2018 Jimenez Boum an [facility] temperature [degF] 11:280400 79686 [facility] ([id number]) ( ) Body 98.1 [degF] (no code) 97.8 - 99.0 11-30-2018 [facility] Admin [facility] Temperature [degF] 13:00-0400 LLC ([id number]) (Work Phone: ) Body 96.9 [degF] (no code) 97.8 - 99.0 11-16-2018 Jimenez Boum an [facility] Temperature [degF] 16:490400 94786 [facility] ([id number]) ( ) Body 96.9 [degF] (no code) 97.8 - 99.0 11-16-2018 Jimenez Boum an [facility] temperature [degF] 11:490400 29688 [facility] ([id number]) ( ) Body 98 [degF] (no code) 97.8 - 99.0 11-09-2018 QIE Admin A [facility] Temperature [degF] 13:00-0400 LLC ([id number]) (Work Phone: ) Body 97.5 [degF] (no code) 97.8 - 99.0 10-26-2018 [facility] Admin [facility] Temperature [degF] 13:00-0400 LLC ([id number]) (Work Phone: ) Body 96.6 [degF] (no code) 97.8 - 99.0 08-19-2018 Kellyzhao oliva [facility] Temperature [degF] 18:33-0400 [facility] ([id number]) ( ) Body 96.6 [degF] (no code) 97.8 - 99.0 08-19-2018 Jimenez Tiffanie maciel [facility] temperature [degF] 13:33-0400 11327 [facility] ([id number]) ( ) Body 99.1 [degF] (no code) 97.8 - 99.0 07-28-2018 [facility] Admin [facility] Temperature [degF] 13:00-0500 LLC ([id number]) (Work Phone: ) Body 98 [degF] (no code) 97.8 - 99.0 05-11-2018 [facility] Admin [facility] Temperature [degF] 13:00-0500 [facility] ([id number]) (Work Phone: ) Body 97.6 [degF] (no code) 97.8 - 99.0 01-29-2018 [facility] Admin [facility] Temperature [degF] 13:00-0400 LLC ([id number]) (Work Phone: ) Body 97.9 [degF] (no code) 97.8 - 99.0 11-17-2017 no name [facility] Temperature [degF] 13:00-0400 LLC ([id number]) (Work Phone: ) Body weight 105.01 kg (no code) kg 10-12-2019 [facility] Admin [facility] 08:00-0400 [facility] ([id number]) (Work Phone: ) Body weight 105.24 kg (no code) kg 07-11-2019 [facility] Admin [facility] 07:00-0500 [facility] ([id number]) (Work Phone: ) Body weight 103.65 kg (no code) kg 04-12-2019 [facility] Admin [facility] 07:00-0500 [facility] ([id number]) (Work Phone: ) Body weight 103.42 kg (no code) kg 04-05-2019 Jimenez Gresham [facility] 09:130500 [id number] [facility] ([id number]) ( ) Body weight 104.15 kg (no code) kg 01-19-2019 [facility] Admin [facility] 13:00-0400 [facility] ([id number]) (Work Phone: ) Body weight 104.78 kg (no code) kg 12-17-2018 [facility] 16:280400 56099 [facility] ([id number]) ( ) Body weight 104.78 kg (no code) kg 12-17-2018 [facility] 11:280400 55954 [facility] ([id number]) ( ) Body weight 107.05 kg (no code) kg 11-30-2018 QIE Admin [facility] 13:00-0400 LLC ([id number]) (Work Phone: ) Body weight 106.6 kg (no code) kg 11-16-2018 [facility] 16:49-0400 52317 [facility] ([id number]) ( ) Body weight 106.6 kg (no code) kg 11-16-2018 [facility]enez [facility] 11:49-0400 41796 [facility] ([id number]) ( ) Body weight 105.24 kg (no code) kg 11-09-2018 QIE Admin [facility] 13:00-0400 [facility] ([id number]) (Work Phone: ) Body weight 103.65 kg (no code) kg 10-26-2018 QIE Admin [facility] 13:00-0400 LLC ([id number]) (Work Phone: ) Body weight 104.78 kg (no code) kg 08-19-2018 Kelly Gomez [facility] [employer] 18:33-0400 [facility] ([id number]) ( ) Body weight 104.78 kg (no code) kg 08-19-2018 [facility] 13:33-0400 25676 [facility] ([id number]) ( ) Body weight 102.97 kg (no code) kg 07-28-2018 QIE Admin [facility] 13:00-0500 LLC ([id number]) (Work Phone: ) Body weight 104.33 kg (no code) kg 05-11-2018 QIE Admin [facility] 13:00-0500 [facility] ([id number]) (Work Phone: ) Body weight 106.6 kg (no code) kg 01-29-2018 QIE Admin [facility] 13:000400 [facility] ([id number]) (Work Phone: ) Body weight 105.69 kg (no code) kg 11-17-2017 QIE Admin [facility] 13:00-0400 LLC ([id number]) (Work Phone: ) Body weight 107.05 kg (no code) kg 08-10-2017 QIE Admin [facility] 13:00-0400 LLC ([id number]) (Work Phone: ) BP Diastolic 84 mm[Hg] (no code) 60 - 80 mm[Hg] 04-12-2019 QIE A [facility] 07:000500 [facility] ([id number]) (Work Phone: ) BP Diastolic 87 mm[Hg] (no code) 60 - 80 mm[Hg] 04-12-2019 QIE A [facility] 07:00-0500 [facility] ([id number]) (Work Phone: ) Blood Pressure 129/ (no code) Systolic: 90 - 03-24-2019 ANSLEY DYE [facility] 78mm[Hg] 120 mm[Hg] 09:52-0400 [id number] ([id number]) (Work Phone: Diastolic: 60 ) - 80 mm[Hg] Blood Pressure 120/ (no code) Systolic: 90 03-21-2019 ANSLEY [employer] [facility] 51mm[Hg] 120 mm[Hg] 15:07-0400 [id number] ([id number]) (Work Phone: Diastolic: 60 ) - 80 mm[Hg] Blood Pressure 120/ (no code) Systolic: 90 - 01-19-2019 QIE Admin [facility] 68mm[Hg] 120 mm[Hg] 13:000400 [facility] ([id number]) (Work Phone: Diastolic: 60 - 80 mm[Hg] ) Blood Pressure 149/ (no code) Systolic: 12-17-2018 Jerr renetta [facility] 82mm[Hg] 120 mm[Hg] 16:28-0400 [id number] [facility] ([id number]) Diastolic: 60 (Work Phone: - 80 mm[Hg] ) Blood Pressure 128/ (no code) Systolic: 11-30-2018 [facility] Admin [facility] 86mm[Hg] 120 mm[Hg] 13:00-0400 LLC ([id number]) (Work Phone: Diastolic: 60 - 80 mm[Hg] ) Blood Pressure 103/ (no code) Systolic: 11-16-2018 Niranjanr renetta Patience [facility] 67mm[Hg] 120 mm[Hg] 16:49-0400 [id number] [facility] ([id number]) Diastolic: 60 (Work Phone: - 80 mm[Hg] ) Blood Pressure 137/ (no code) Systolic: 11-09-2018 [facility] Admin [facility] 84mm[Hg] 120 mm[Hg] 13:00-0400 LLC ([id number]) (Work Phone: Diastolic: 60 - 80 mm[Hg] ) Blood Pressure 106/ (no code) Systolic: 10-26-2018 [facility] Admin [facility] 75mm[Hg] 120 mm[Hg] 13:00-0400 [facility] ([id number]) (Work Phone: Diastolic: 60 - 80 mm[Hg] ) Blood Pressure 132/ (no code) Systolic: 08-19-2018 Dolores [facility]ado[facility] 84mm[Hg] 120 mm[Hg] [facility] ([id number]) Diastolic: 60 (Work Phone: - 80 mm[Hg] ) Blood Pressure 132/ (no code) Systolic: 07-28-2018 [facility] 75mm[Hg] 120 mm[Hg] [facility] ([id number]) (Work Phone: Diastolic: 60 - 80 mm[Hg] ) Blood Pressure 129/ (no code) Systolic: 05-11-2018 [facility] 83mm[Hg] 120 mm[Hg] [facility] ([id number]) (Work Phone: Diastolic: 60 - 80 mm[Hg] ) Blood Pressure 100/ (no code) Systolic: 90 - 01-29-2018 [facility] 72mm[Hg] 120 mm[Hg] [facility] ([id number]) (Work Phone: Diastolic: 60 - 80 mm[Hg] ) Blood Pressure 117/ (no code) Systolic: 90 - 11-17-2017 no n max [facility] 72mm[Hg] 119 mm[Hg] [facility] ([id number]) (Work Phone: Diastolic: 60 - 79 mm[Hg] ) BP Systolic 164 mm[Hg] (no code) 90 - 120 04-12-2019 [facility] mm[Hg] [facility] ([id number]) (Work Phone: ) BP Systolic 176 mm[Hg] (no code) 90 - 120 04-12-2019 [facility] mm[Hg] [facility] ([id number]) (Work Phone: ) BSA (Body 2.23 m2 (no code) m2 11-16-2018 [facility]) 16:49-0400 [id number] ([id number]) ( ) BSA (Body 2.23 m2 (no code) m2 08-19-2018 [facility]) 18:33-[facility] ([id number]) ( ) Diastolic 73 mm[Hg] (no code) 60 - 80 mm[Hg] 10-12-2019 [facility] blood pressure [facility] ([id number]) (Work Phone: ) Diastolic 76 mm[Hg] (no code) 60 - 80 mm[Hg] 10-12-2019 [facility] blood pressure [facility] ([id number]) (Work Phone: ) Blood Pressure 134/ (no code) Systolic: 90 - 07-11-2019 E Admin [facility] 74mm[Hg] 120 mm[Hg] 07[facility] ([id number]) (Work Phone: Diastolic: 60 - 80 mm[Hg] ) Blood Pressure 113/ (no code) Systolic: 90 - 04-05-2019 [facility] 56mm[Hg] 120 mm[Hg] 09:130500 [id number] [facility] ([id number]) Diastolic: 60 (Work Phone: - 80 mm[Hg] ) Blood Pressure 149/ (no code) Systolic: - 12-17-2018 Jerr PlanG [facility] 82mm[Hg] 120 mm[Hg] 11:28-0400 [id number] [facility] ([id number]) Diastolic: 60 (Work Phone: - 80 mm[Hg] ) Blood Pressure 103/ (no code) Systolic: 11-16-2018 Wellntel[facility] Plan[facility] 67mm[Hg] 120 mm[Hg] 11:49-0400 [id number] [facility] ([id number]) Diastolic: 60 (Work Phone: - 80 mm[Hg] ) Blood Pressure 132/ (no code) Systolic: 90 - 08-19-2018 Jerr PlanG [facility] 84mm[Hg] 120 mm[Hg] 13:33-0400 [id number] [facility] ([id number]) Diastolic: 60 (Work Phone: - 80 mm[Hg] ) Heart rate 100 /min (no code) 60 - 100 /min 10-12-2019 E Admin [facility] 08:00-0400 [facility] ([id number]) (Work Phone: ) Heart rate 90 /min (no code) 60 - 100 /min 07-11-2019 E Admin [facility] 07:00-0500 LLC ([id number]) (Work Phone: ) Heart rate 88 /min (no code) 60 - 100 /min 04-05-2019 Jimenezhans Meyer [facility] 09:13-0500 [id number] [facility] ([id number]) ( ) Heart rate 95 /min (no code) 60 - 100 /min 12-17-2018 Jimenez Meyer [facility] 11:28-0400 [id number] [facility] ([id number]) ( ) Heart rate 95 /min (no code) 60 - 100 /min 11-16-2018 Jimenez Meyer [facility] 11:49-0400 [id number] [facility] ([id number]) ( ) Heart rate 94 /min (no code) 60 - 100 /min 08-19-2018 Jimenez Meyer [facility] 13:33-0400 [id number] [facility] ([id number]) ( ) Height 168.91 cm (no code) cm 04-12-2019 QIE Admin [facility] 07:00-0500 LLC ([id number]) (Work Phone: ) Height 168.91 cm (no code) cm 01-19-2019 E Admin [facility] 13:00-0400 LLC ([id number]) (Work Phone: ) Height 168.91 cm (no code) cm 11-30-2018 QIE Admin [facility] 13:00-0400 LLC ([id number]) (Work Phone: ) Height 167.64 cm (no code) cm 11-16-2018 [facility] 16:49-0400 76605 [facility] ([id number]) ( ) Height 168.91 cm (no code) cm 11-09-2018 QIE Admin [facility] 13:00-0400 LLC ([id number]) (Work Phone: ) Height 168.91 cm (no code) cm 10-26-2018 QIE Admin [facility] 13:00-0400 LLC ([id number]) (Work Phone: ) Height 170.18 cm (no code) cm 08-19-2018 [facility] 18:33-0400 [facility] ([id number]) ( ) Height 168.91 cm (no code) cm 07-28-2018 QIE Admin [facility] 13:00-0500 LLC ([id number]) (Work Phone: ) Height 168.91 cm (no code) cm 05-11-2018 [facility] 13:00-0500 [facility] ([id number]) (Work Phone: ) Height 168.91 cm (no code) cm 01-29-2018 QIE Admin [facility] 13:00-0400 LLC ([id number]) (Work Phone: ) Height 168.91 cm (no code) cm 11-17-2017 no name [facility] 13:000400 LLC ([id number]) (Work Phone: ) Oxygen 97 % (no code) 95 - 100 % 08-19-2018 Jimenez Gresham [facility] saturation in 13:33-0400 [id number] [facility] Arterial blood Group ([id number]) by Pulse (Work Phone: oximetry ) Pulse (Heart 85 /min (no code) 60 - 100 /min 04-12-2019 QIE Adm in [facility] Rate) 07:00-0500 LLC ([id number]) (Work Phone: ) Pulse (Heart 83 /min (no code) 60 - 100 /min 03-24-2019 ANSLEY DYE [facility] Rate) 09:52-0400 [id number] ([id number]) ( ) Pulse (Heart 75 /min (no code) 60 - 100 /min 03-21-2019 ANSLEY DYE [facility] Rate) 15:07-0400 [id number] ([id number]) ( ) Pulse (Heart 82 /min (no code) 60 - 100 /min 01-19-2019 QIE Adm in [facility] Rate) 13:00-0400 LLC ([id number]) (Work Phone: ) Pulse (Heart 95 /min (no code) 60 - 100 /min 12-17-2018 Jimenez reyna [facility] Rate) 16:28-0400 [id number] [facility] ([id number]) ( ) Pulse (Heart 74 /min (no code) 60 - 100 /min 11-30-2018 [facility]IE Adm in [facility] Rate) 13:00-0400 LLC ([id number]) (Work Phone: ) Pulse (Heart 95 /min (no code) 60 - 100 /min 11-16-2018 Jimenez Rachel [facility] Rate) 16:49-0400 [id number] [facility] ([id number]) ( ) Pulse (Heart 101 /min (no code) 60 - 100 /min 11-09-2018 [facility] Adm in [facility] Rate) 13:00-0400 LLC ([id number]) (Work Phone: ) Pulse (Heart 77 /min (no code) 60 - 100 /min 10-26-2018 [facility] Adm in [facility] Rate) 13:00-0400 LLC ([id number]) (Work Phone: ) Pulse (Heart 94 /min (no code) 60 - 100 /min 08-19-2018 Kelly Rachel [facility] Rate) 18:33-0400 [facility] ([id number]) ( ) Pulse (Heart 98 /min (no code) 60 - 100 /min 07-28-2018 [facility]IE Adm in [facility] Rate) 13:00-0500 LLC ([id number]) (Work Phone: ) Pulse (Heart 101 /min (no code) 60 - 100 /min 05-11-2018 [facility]IE Adm in [facility] Rate) 13:00-0500 LLC ([id number]) (Work Phone: ) Pulse (Heart 106 /min (no code) 60 - 100 /min 01-29-2018 [facility] Adm in [facility] Rate) 13:00-0400 LLC ([id number]) (Work Phone: ) Pulse (Heart 91 /min (no code) 60 - 100 /min 11-17-2017 no name [facility] Rate) 13:00-0400 LLC ([id number]) (Work Phone: ) Pulse Oximetry 100 % (no code) 95 - 100 % 03-24-2019 ANSLEY DYE [facility] 09:52-0400 [id number] ([id number]) ( ) Pulse Oximetry 94 % (no code) 95 - 100 % 03-21-2019 ANSLEY DYE [facility] 15:08-0400 [id number] ([id number]) ( ) Pulse Oximetry 97 % (no code) 95 - 100 % 08-19-2018 Kellyzhao hassan [facility] 18:33-0400 [facility] ([id number]) ( ) Respiratory 20 /min (no code) 12 - 20 /min 04-05-2019 Jimenez Mitch man [facility] rate 09:13-0500 [id number] [facility] ([id number]) ( ) Respiratory 20 /min (no code) 12 - 20 /min 03-24-2019 ANSLEY DYE [facility] Rate 09:52-0400 [id number] ([id number]) ( ) Respiratory 17 /min (no code) 12 - 20 /min 03-21-2019 ANSLEY DYE [facility] Rate 15:070400 [id number] ([id number]) ( ) Respiratory 20 /min (no code) 12 - 20 /min 12-17-2018 Jimenez Mitch man [facility] Rate 16:28-0400 [id number] [facility] ([id number]) ( ) Respiratory 20 /min (no code) 12 - 20 /min 12-17-2018 Jimenez Mitch man [facility] rate 11:28-0400 [id number] [facility] ([id number]) ( ) Respiratory 20 /min (no code) 12 - 20 /min 11-16-2018 Jimenez Mitch man [facility] Rate 16:49-0400 [id number] [facility] ([id number]) ( ) Respiratory 20 /min (no code) 12 - 20 /min 11-16-2018 Jimenez Mitch man [facility] rate 11:49-0400 [id number] [facility] ([id number]) ( ) Respiratory 20 /min (no code) 12 - 20 /min 08-19-2018 Kelly lora [facility] Rate 18:33-0400 [facility] ([id number]) ( ) Respiratory 20 /min (no code) 12 - 20 /min 08-19-2018 Jimenez crews [facility] rate 13:33-0400 [id number] [facility] ([id number]) ( ) Systolic blood 132 mm[Hg] (no code) 90 - 120 10-12-2019 [facility]IE Admi n [facility] pressure mm[Hg] 08:00-0400 LLC ([id number]) (Work Phone: ) Systolic blood 148 mm[Hg] (no code) 90 - 120 10-12-2019 [facility]IE Admi n [facility] pressure mm[Hg] 08:00-0400 [employer] ([id number]) (Work Phone: ) Weight 104.33 kg (no code) kg 05-11-2018 [facility] 13:00-0500 [facility] ([id number]) (Work Phone: ) Weight 106.6 kg (no code) kg 01-29-2018 [facility] 13:00-0400 [facility] ([id number]) (Work Phone: ) Weight 105.69 kg (no code) kg 11-17-2017 no name [facility] 13:00-0400 LLC ([id number]) (Work Phone: ) Interventions No Information Plan of Treatment Normalized Care Care Detail Care Activity Date Care Provider F acility Activity Blood count complete CBC W/ AUTO DIFF 12-30-2018 Jimenez Gresham [id number] [employer] auto&auto difrntl (RFLX MAN DIFF IF [facility] wbc IND). ([id number]) ( ) Comprehensive CMP (comprehensive 12-30-2018 Jimenez Iankaity 35349 [employer] metabolic panel metabolic panel) [facility] ([id number]) ( ) Computed tomography CT ABD AND PELVIS 11-16-2018 - Jimenez Gresham 78446 [employer] of abdomen and W/CONTRAST 11-16-2018 - [facility] p pelvis with contrast 11-16-2018 ([id number]) (Work Ph one: ) Diagnostic CX CHEST 2 VIEWS 12-30-2018 Jimenez Kendra [address] [facility] chest, combined PA ([id number]) (Work Phone: and lateral ) Ecg routine ecg EKG (12-lead 12-30-2018 Jimenez Kendra [address] [facility] w/least 12 lds w/i&r electrocardiogram) [facility] p ([id number]) ( ) HbA1c (Bld) [Mass HbA1c 12-30-2018 Jimenez Kendra 59522 [facility] fraction] [facility] ([id number]) ( ) Ultrasonography of US ABDOMINAL 12-01-2018 - Jimenez Gresham 12095 [employer] abdomen COMPLETE 12-01-2018 - [facility]ett holliday 12-01-2018 ([id number]) ( ) Goals No Information Social History Normalized Code Original Code Date Value no information no information Former smoker no information no information - denies alcohol use Functional Status The data below is from unstructured sources Query Response Date Rios rded Patient Behavior Appropriate May 13, 2015 6:55pm Query Response Date Rios rded Patient Behavior Cooperative March 24, 2015 11:07am No Data Found Mental Status The data below is from unstructured sources No Data Found Encounters Encounter Normalized Encounter Encounter Diagnosis Care Provi jessica Organization Date Type 03-21-2019 Admission to day no information Jimenez Gresham (no [email or web address] - IP surgery phone) (no phone) 05-09-2015 Emergency department no information no name no organization name - patient visit 05-09-2015 03-21-2019 Evaluation and no information no name no organ ization name - management of 03-24-2019 inpatient 01-07-2018 Laboratory no information Alysha Pratt Other In dependence [facility] (no phone) 01-07-2018 Laboratory no information Alysha Pratt Other In dependence [facility] (no phone) 12-17-2018 Office outpatient no information Jimenez Gresham Other [facility] visit 15 minutes (no phone) 12-17-2018 Office outpatient no information Jimenez Gresham Other [facility] visit 15 minutes (no phone) 11-16-2018 Office outpatient no information Jimenez Gresham Other [facility] visit 15 minutes (no phone) 11-16-2018 Office outpatient no information Jimenez Gresham Other [facility] visit 15 minutes (no phone) 11-09-2018 Office outpatient no information Delbert Garcia MD [facility] Work visit 15 minutes Work Phone: Phone: 08-19-2018 Office outpatient no information Kelly Chelsea [facility] (no visit 15 minutes Other Phone: phone) 08-19-2018 Office outpatient no information Kelly Chelsea [facility] (no visit 15 minutes Other Phone: phone) 10-12-2019 Office outpatient no information Delbert Garcia MD [facility] Work visit 25 minutes Work Phone: Phone: 07-11-2019 Office outpatient no information Delbert Garcia MD [facility] Work visit 25 minutes Work Phone: Phone: 04-12-2019 Office outpatient no information Delbert Garcia MD [facility] Work visit 25 minutes Work Phone: Phone: 11-30-2018 Office outpatient no information Delbert Garcia MD [facility] Work visit 25 minutes Work Phone: Phone: 10-26-2018 Office outpatient no information Delbert Garcia MD [facility] Work visit 25 minutes Work Phone: Phone: 07-28-2018 Office outpatient no information Delbert Garcia MD [facility] Work visit 25 minutes Work Phone: Phone: 05-11-2018 Office outpatient no information Delbert Garcia MD [facility] Work visit 25 minutes Work Phone: Phone: 02-16-2018 Office outpatient no information Ann Verma [facility] Work visit 25 minutes Work Phone: Phone: 01-29-2018 Office outpatient no information Ann Verma [facility] Work visit 25 minutes Work Phone: Phone: 01-19-2019 Office outpatient no information Delbert Garcia MD [facility] Work visit 40 minutes Work Phone: Phone: 11-17-2017 Office/outpatient no information Delbert Garcia MD [facility] Work visit, est, level 5 Work Phone: Phone: 01-07-2018 Patient encounter no information no name no or ganization name - 01-07-2018 Patient encounter no information Delbert Garcia MD (no [facility] (no phone) (no phone) (no phone) phone) 10-25-2019 Patient encounter no information DESMOND [facility] procedure (no phone) [facility] (no phone) 10-06-2019 Patient encounter no information DESMOND [facility] procedure (no phone) [facility] (no phone) 07-11-2019 Patient encounter no information MD Delbert Garcia ( no [facility] - procedure phone) MD [facility] (no [facility] (no 07-11-2019 phone) MD [place] phoneMickey Garcia (no phone) MD Delbert Garcia (no phone) 07-11-2019 Patient encounter no information MD Delbert Garcia ( no [facility] - procedure phone) MD [place] (no [facility] (no 07-11-2019 phone) phone) 04-11-2019 Patient encounter no information no name no or ganization name procedure 04-06-2019 Patient encounter no information no name no or ganization name procedure 03-21-2019 Patient encounter no information no name no or ganization name procedure 01-13-2019 Patient encounter no information no name no or ganization name procedure 01-13-2019 Patient encounter no information no name no or ganization name procedure 01-10-2019 Patient encounter no information no name no or ganization name procedure 01-06-2019 Patient encounter no information no name no or ganization name procedure 12-13-2018 Patient encounter no information no name no or ganization name - procedure 12-13-2018 12-13-2018 Patient encounter no information no name no or ganization name - procedure 12-13-2018 04-05-2019 Postop follow up visit no information Jimenez Gresham Other [facility] related to original px (no phone) 12-30-2018 [id number] Pre-operative no name n o organization name [id number] examination, ness_name_21 unspecified 12-30-2018 [id number] Pre-operative no name n o organization name [id number] examination, ness_name_21 unspecified 07-21-2013 Health screening Routine general no name (no p huber) (no phone) medical examination at a health care facility 02-25-2013 WE[facility] WOMAN EXAMINATION Routine gynecological no nam e (no phone) (no phone) examination no information Encounter for no name no organization name preprocedural cardiovascular examination Medical Equipment Equipment Code (if Equipment Original Equipment Identifier P rocedure Code (if Dates provided) Text (if provided) (if provided) provided) no information Test twice a day no information (no no informati on 12-12-2011 - named assigning 11-03-2014 authority) no information use 1 daily no information (no no information 0 12-21-2015 named assigning authority) no information test blood sugar BID no information (no no infor mation 03-22-2014 Dx: E11.65 named assigning authority) no information Test twice a day no information (no no informati on 03-22-2014 named assigning authority) no information Test twice a day no information (no no informati on 12-12-2011 - named assigning 11-03-2014 authority) no information Test twice a day no information (no no informati on 12-12-2011 - named assigning 11-03-2014 authority) no information use 1 daily no information (no no information 0 12-21-2015 named assigning authority) no information test blood sugar BID no information (no no infor mation 03-22-2014 Dx: E11.65 named assigning authority) no information Test twice a day no information (no no informati on 03-22-2014 named assigning authority) no information Test twice a day no information (no no informati on 12-12-2011 - named assigning 11-03-2014 authority) no information Test twice a day no information (no no informati on 12-12-2011 - named assigning 11-03-2014 authority) no information use 1 daily no information (no no information 0 12-21-2015 named assigning authority) no information test blood sugar BID no information (no no infor mation 03-22-2014 Dx: E11.65 named assigning authority) no information Test twice a day no information (no no informati on 03-22-2014 named assigning authority) no information Test twice a day no information (no no informati on 12-12-2011 - named assigning 11-03-2014 authority) no information Test twice a day no information (no no informati on 12-12-2011 - named assigning 11-03-2014 authority) no information use 1 daily no information (no no information 0 12-21-2015 named assigning authority) no information test blood sugar BID no information (no no infor mation 03-22-2014 Dx: E11.65 named assigning authority) no information Test twice a day no information (no no informati on 03-22-2014 named assigning authority) no information Test twice a day no information (no no informati on 12-12-2011 - named assigning 11-03-2014 authority) no information Test twice a day no information (no no informati on 12-12-2011 - named assigning 11-03-2014 authority) no information use 1 daily no information (no no information 0 12-21-2015 named assigning authority) no information test blood sugar BID no information (no no infor mation 03-22-2014 Dx: E11.65 named assigning authority) no information Test twice a day no information (no no informati on 03-22-2014 named assigning authority) no information Test twice a day no information (no no informati on 12-12-2011 - named assigning 11-03-2014 authority) no information Test twice a day no information (no no informati on 12-12-2011 - named assigning 11-03-2014 authority) no information use 1 daily no information (no no information 0 12-21-2015 named assigning authority) no information test blood sugar BID no information (no no infor mation 03-22-2014 Dx: E11.65 named assigning authority) no information Test twice a day no information (no no informati on 03-22-2014 named assigning authority) no information Test twice a day no information (no no informati on 12-12-2011 - named assigning 11-03-2014 authority) no information Test twice a day no information (no no informati on 03-22-2014 named assigning authority) no information Test twice a day no information (no no informati on 03-22-2014 named assigning authority) no information Test twice a day no information (no no informati on 12-12-2011 - named assigning 11-03-2014 authority) no information Test twice a day no information (no no informati on 03-22-2014 named assigning authority) no information Test twice a day no information (no no informati on 03-22-2014 named assigning authority) no information Test twice a day no information (no no informati on 12-12-2011 - named assigning 11-03-2014 authority) no information Test twice a day no information (no no informati on 03-22-2014 named assigning authority) no information Test twice a day no information (no no informati on 03-22-2014 named assigning authority) no information Test twice a day no information (no no informati on 12-12-2011 - named assigning 11-03-2014 authority) no information Test twice a day no information (no no informati on 03-22-2014 named assigning authority) no information Test twice a day no information (no no informati on 03-22-2014 named assigning authority) no information Test twice a day no information (no no informati on 12-12-2011 - named assigning 11-03-2014 authority) no information Test twice a day no information (no no informati on 03-22-2014 named assigning authority) no information Test twice a day no information (no no informati on 03-22-2014 named assigning authority) no information Test twice a day no information (no no informati on 12-12-2011 - named assigning 11-03-2014 authority) no information Test twice a day no information (no no informati on 03-22-2014 named assigning authority) no information Test twice a day no information (no no informati on 03-22-2014 named assigning authority) no information Test twice a day no information (no no informati on 12-12-2011 - named assigning 11-03-2014 authority) no information Test twice a day no information (no no informati on 03-22-2014 named assigning authority) no information Test twice a day no information (no no informati on 03-22-2014 named assigning authority) no information Test twice a day no information (no no informati on 12-12-2011 - named assigning 11-03-2014 authority) no information Test twice a day no information (no no informati on 03-22-2014 named assigning authority) no information Test twice a day no information (no no informati on 03-22-2014 named assigning authority) no information Test twice a day no information (no no informati on 12-12-2011 - named assigning 11-03-2014 authority) no information Test twice a day no information (no no informati on 03-22-2014 named assigning authority) no information Test twice a day no information (no no informati on 03-22-2014 named assigning authority) no information Test twice a day no information (no no informati on 12-12-2011 - named assigning 11-03-2014 authority) no information Test twice a day no information (no no informati on 03-22-2014 named assigning authority) no information Test twice a day no information (no no informati on 03-22-2014 named assigning authority) no information Test twice a day no information (no no informati on 12-12-2011 - named assigning 11-03-2014 authority) no information Test twice a day no information (no no informati on 03-22-2014 named assigning authority) no information Test twice a day no information (no no informati on 03-22-2014 named assigning authority) no information Test twice a day no information (no no informati on 12-12-2011 - named assigning 11-03-2014 authority) no information Test twice a day no information (no no informati on 03-22-2014 named assigning authority) no information Test twice a day no information (no no informati on 03-22-2014 named assigning authority) no information Test twice a day no information (no no informati on 12-12-2011 - named assigning 11-03-2014 authority) no information Test twice a day no information (no no informati on 03-22-2014 named assigning authority) no information Test twice a day no information (no no informati on 03-22-2014 named assigning authority) no information Test twice a day no information (no no informati on 12-12-2011 - named assigning 11-03-2014 authority) no information Test twice a day no information (no no informati on 03-22-2014 named assigning authority) no information Test twice a day no information (no no informati on 03-22-2014 named assigning authority) no information Test twice a day no information (no no informati on 12-12-2011 - named assigning 11-03-2014 authority) no information Test twice a day no information (no no informati on 03-22-2014 named assigning authority) no information Test twice a day no information (no no informati on 03-22-2014 named assigning authority) no information Test twice a day no information (no no informati on 12-12-2011 - named assigning 11-03-2014 authority) no information Test twice a day no information (no no informati on 03-22-2014 named assigning authority) no information Test twice a day no information (no no informati on 03-22-2014 named assigning authority) no information Test twice a day no information (no no informati on 12-12-2011 - named assigning 11-03-2014 authority) no information Test twice a day no information (no no informati on 03-22-2014 named assigning authority) no information Test twice a day no information (no no informati on 03-22-2014 named assigning authority) no information Test twice a day no information (no no informati on 12-12-2011 - named assigning 11-03-2014 authority) no information Test twice a day no information (no no informati on 03-22-2014 named assigning authority) no information Test twice a day no information (no no informati on 03-22-2014 named assigning authority) no information Test twice a day no information (no no informati on 12-12-2011 - named assigning 11-03-2014 authority) no information Test twice a day no information (no no informati on 03-22-2014 named assigning authority) no information Test twice a day no information (no no informati on 03-22-2014 named assigning authority) no information Test twice a day no information (no no informati on 12-12-2011 - named assigning 11-03-2014 authority) no information Test twice a day no information (no no informati on 03-22-2014 named assigning authority) no information Test twice a day no information (no no informati on 03-22-2014 named assigning authority) no information Test twice a day no information (no no informati on 12-12-2011 - named assigning 11-03-2014 authority) no information Test twice a day no information (no no informati on 03-22-2014 named assigning authority) no information Test twice a day no information (no no informati on 03-22-2014 named assigning authority) no information Test twice a day no information (no no informati on 12-12-2011 - named assigning 11-03-2014 authority) no information Test twice a day no information (no no informati on 03-22-2014 named assigning authority) no information Test twice a day no information (no no informati on 03-22-2014 named assigning authority) no information Test twice a day no information (no no informati on 12-12-2011 - named assigning 11-03-2014 authority) no information Test twice a day no information (no no informati on 03-22-2014 named assigning authority) no information Test twice a day no information (no no informati on 03-22-2014 named assigning authority) no information Test twice a day no information (no no informati on 12-12-2011 - named assigning 11-03-2014 authority) no information Test twice a day no information (no no informati on 03-22-2014 named assigning authority) no information Test twice a day no information (no no informati on 03-22-2014 named assigning authority) no information Test twice a day no information (no no informati on 12-12-2011 - named assigning 11-03-2014 authority) no information Test twice a day no information (no no informati on 03-22-2014 named assigning authority) no information Test twice a day no information (no no informati on 03-22-2014 named assigning authority) no information Test twice a day no information (no no informati on 12-12-2011 - named assigning 11-03-2014 authority) no information Test twice a day no information (no no informati on 03-22-2014 named assigning authority) no information Test twice a day no information (no no informati on 03-22-2014 named assigning authority) no information Test twice a day no information (no no informati on 12-12-2011 - named assigning 11-03-2014 authority) no information Test twice a day no information (no no informati on 03-22-2014 named assigning authority) no information Test twice a day no information (no no informati on 03-22-2014 named assigning authority) no information Test twice a day no information (no no informati on 12-12-2011 - named assigning 11-03-2014 authority) no information Test twice a day no information (no no informati on 03-22-2014 named assigning authority) no information Test twice a day no information (no no informati on 03-22-2014 named assigning authority) no information Test twice a day no information (no no informati on 12-12-2011 - named assigning 11-03-2014 authority) no information Test twice a day no information (no no informati on 03-22-2014 named assigning authority) no information Test twice a day no information (no no informati on 03-22-2014 named assigning authority) no information Test twice a day no information (no no informati on 12-12-2011 - named assigning 11-03-2014 authority) no information Test twice a day no information (no no informati on 03-22-2014 named assigning authority) no information Test twice a day no information (no no informati on 03-22-2014 named assigning authority) no information Test twice a day no information (no no informati on 12-12-2011 - named assigning 11-03-2014 authority) no information Test twice a day no information (no no informati on 03-22-2014 named assigning authority) no information Test twice a day no information (no no informati on 03-22-2014 named assigning authority) no information Test twice a day no information (no no informati on 12-12-2011 - named assigning 11-03-2014 authority) no information Test twice a day no information (no no informati on 03-22-2014 named assigning authority) no information Test twice a day no information (no no informati on 03-22-2014 named assigning authority) no information Test twice a day no information (no no informati on 12-12-2011 - named assigning 11-03-2014 authority) no information Test twice a day no information (no no informati on 03-22-2014 named assigning authority) no information Test twice a day no information (no no informati on 03-22-2014 named assigning authority) no information Test twice a day no information (no no informati on 12-12-2011 - named assigning 11-03-2014 authority) no information Test twice a day no information (no no informati on 03-22-2014 named assigning authority) no information Test twice a day no information (no no informati on 03-22-2014 named assigning authority) no information Test twice a day no information (no no informati on 12-12-2011 - named assigning 11-03-2014 authority) no information Test twice a day no information (no no informati on 03-22-2014 named assigning authority) no information Test twice a day no information (no no informati on 03-22-2014 named assigning authority) no information Test twice a day no information (no no informati on 12-12-2011 - named assigning 11-03-2014 authority) no information Test twice a day no information (no no informati on 03-22-2014 named assigning authority) no information Test twice a day no information (no no informati on 03-22-2014 named assigning authority) no information Test twice a day no information (no no informati on 12-12-2011 - named assigning 11-03-2014 authority) no information Test twice a day no information (no no informati on 03-22-2014 named assigning authority) no information Test twice a day no information (no no informati on 03-22-2014 named assigning authority) no information Test twice a day no information (no no informati on 12-12-2011 - named assigning 11-03-2014 authority) no information Test twice a day no information (no no informati on 03-22-2014 named assigning authority) no information Test twice a day no information (no no informati on 03-22-2014 named assigning authority) no information Test twice a day no information (no no informati on 12-12-2011 - named assigning 11-03-2014 authority) no information Test twice a day no information (no no informati on 03-22-2014 named assigning authority) no information Test twice a day no information (no no informati on 03-22-2014 named assigning authority) no information Test twice a day no information (no no informati on 12-12-2011 - named assigning 11-03-2014 authority) no information Test twice a day no information (no no informati on 03-22-2014 named assigning authority) no information Test twice a day no information (no no informati on 03-22-2014 named assigning authority) no information Test twice a day no information (no no informati on 12-12-2011 - named assigning 11-03-2014 authority) no information Test twice a day no information (no no informati on 03-22-2014 named assigning authority) no information Test twice a day no information (no no informati on 03-22-2014 named assigning authority) no information Test twice a day no information (no no informati on 12-12-2011 - named assigning 11-03-2014 authority) no information Test twice a day no information (no no informati on 03-22-2014 named assigning authority) no information Test twice a day no information (no no informati on 03-22-2014 named assigning authority) no information Test twice a day no information (no no informati on 12-12-2011 - named assigning 11-03-2014 authority) no information Test twice a day no information (no no informati on 03-22-2014 named assigning authority) no information Test twice a day no information (no no informati on 03-22-2014 named assigning authority) no information Test twice a day no information (no no informati on 12-12-2011 - named assigning 11-03-2014 authority) no information Test twice a day no information (no no informati on 03-22-2014 named assigning authority) no information Test twice a day no information (no no informati on 03-22-2014 named assigning authority) no information Test twice a day no information (no no informati on 12-12-2011 - named assigning 11-03-2014 authority) no information Test twice a day no information (no no informati on 03-22-2014 named assigning authority) no information Test twice a day no information (no no informati on 03-22-2014 named assigning authority) no information Test twice a day no information (no no informati on 12-12-2011 - named assigning 11-03-2014 authority) no information Test twice a day no information (no no informati on 03-22-2014 named assigning authority) no information Test twice a day no information (no no informati on 03-22-2014 named assigning authority) no information Test twice a day no information (no no informati on 12-12-2011 - named assigning 11-03-2014 authority) no information Test twice a day no information (no no informati on 03-22-2014 named assigning authority) no information Test twice a day no information (no no informati on 03-22-2014 named assigning authority) no information Test twice a day no information (no no informati on 12-12-2011 - named assigning 11-03-2014 authority) no information Test twice a day no information (no no informati on 03-22-2014 named assigning authority) no information Test twice a day no information (no no informati on 03-22-2014 named assigning authority) no information Test twice a day no information (no no informati on 12-12-2011 - named assigning 11-03-2014 authority) no information Test twice a day no information (no no informati on 03-22-2014 named assigning authority) no information Test twice a day no information (no no informati on 03-22-2014 named assigning authority) no information Test twice a day no information (no no informati on 12-12-2011 - named assigning 11-03-2014 authority) no information Test twice a day no information (no no informati on 03-22-2014 named assigning authority) no information Test twice a day no information (no no informati on 03-22-2014 named assigning authority) no information Test twice a day no information (no no informati on 12-12-2011 - named assigning 11-03-2014 authority) no information Test twice a day no information (no no informati on 03-22-2014 named assigning authority) no information Test twice a day no information (no no informati on 03-22-2014 named assigning authority) no information Test twice a day no information (no no informati on 12-12-2011 - named assigning 11-03-2014 authority) no information Test twice a day no information (no no informati on 03-22-2014 named assigning authority) no information Test twice a day no information (no no informati on 03-22-2014 named assigning authority) no information Test twice a day no information (no no informati on 12-12-2011 - named assigning 11-03-2014 authority) no information Test twice a day no information (no no informati on 03-22-2014 named assigning authority) no information Test twice a day no information (no no informati on 03-22-2014 named assigning authority) no information Test twice a day no information (no no informati on 12-12-2011 - named assigning 11-03-2014 authority) no information Test twice a day no information (no no informati on 03-22-2014 named assigning authority) no information Test twice a day no information (no no informati on 03-22-2014 named assigning authority) no information Test twice a day no information (no no informati on 12-12-2011 - named assigning 11-03-2014 authority) no information Test twice a day no information (no no informati on 03-22-2014 named assigning authority) no information Test twice a day no information (no no informati on 03-22-2014 named assigning authority) no information Test twice a day no information (no no informati on 12-12-2011 - named assigning 11-03-2014 authority) no information Test twice a day no information (no no informati on 03-22-2014 named assigning authority) no information Test twice a day no information (no no informati on 03-22-2014 named assigning authority) no information Test twice a day no information (no no informati on 12-12-2011 - named assigning 11-03-2014 authority) no information Test twice a day no information (no no informati on 03-22-2014 named assigning authority) no information Test twice a day no information (no no informati on 03-22-2014 named assigning authority) no information Test twice a day no information (no no informati on 12-12-2011 - named assigning 11-03-2014 authority) no information Test twice a day no information (no no informati on 03-22-2014 named assigning authority) no information Test twice a day no information (no no informati on 03-22-2014 named assigning authority) no information Test twice a day no information (no no informati on 12-12-2011 - named assigning 11-03-2014 authority) no information Test twice a day no information (no no informati on 03-22-2014 named assigning authority) no information Test twice a day no information (no no informati on 03-22-2014 named assigning authority) no information Test twice a day no information (no no informati on 12-12-2011 - named assigning 11-03-2014 authority) no information Test twice a day no information (no no informati on 03-22-2014 named assigning authority) no information Test twice a day no information (no no informati on 03-22-2014 named assigning authority) no information Test twice a day no information (no no informati on 12-12-2011 - named assigning 11-03-2014 authority) no information Test twice a day no information (no no informati on 03-22-2014 named assigning authority) no information Test twice a day no information (no no informati on 03-22-2014 named assigning authority) no information Test twice a day no information (no no informati on 12-12-2011 - named assigning 11-03-2014 authority) no information Test twice a day no information (no no informati on 03-22-2014 named assigning authority) no information Test twice a day no information (no no informati on 03-22-2014 named assigning authority) no information Test twice a day no information (no no informati on 12-12-2011 - named assigning 11-03-2014 authority) no information Test twice a day no information (no no informati on 03-22-2014 named assigning authority) no information Test twice a day no information (no no informati on 03-22-2014 named assigning authority) no information Test twice a day no information (no no informati on 12-12-2011 - named assigning 11-03-2014 authority) no information Test twice a day no information (no no informati on 03-22-2014 named assigning authority) no information Test twice a day no information (no no informati on 03-22-2014 named assigning authority) no information Test twice a day no information (no no informati on 12-12-2011 - named assigning 11-03-2014 authority) no information Test twice a day no information (no no informati on 03-22-2014 named assigning authority) no information Test twice a day no information (no no informati on 03-22-2014 named assigning authority) no information Test twice a day no information (no no informati on 12-12-2011 - named assigning 11-03-2014 authority) no information Test twice a day no information (no no informati on 03-22-2014 named assigning authority) no information Test twice a day no information (no no informati on 03-22-2014 named assigning authority) no information Test twice a day no information (no no informati on 12-12-2011 - named assigning 11-03-2014 authority) no information Test twice a day no information (no no informati on 03-22-2014 named assigning authority) no information Test twice a day no information (no no informati on 03-22-2014 named assigning authority) no information Test twice a day no information (no no informati on 12-12-2011 - named assigning 11-03-2014 authority) no information Test twice a day no information (no no informati on 03-22-2014 named assigning authority) no information Test twice a day no information (no no informati on 03-22-2014 named assigning authority) no information Test twice a day no information (no no informati on 12-12-2011 - named assigning 11-03-2014 authority) no information Test twice a day no information (no no informati on 03-22-2014 named assigning authority) no information Test twice a day no information (no no informati on 03-22-2014 named assigning authority) no information Test twice a day no information (no no informati on 12-12-2011 - named assigning 11-03-2014 authority) no information Test twice a day no information (no no informati on 03-22-2014 named assigning authority) no information Test twice a day no information (no no informati on 03-22-2014 named assigning authority) no information Test twice a day no information (no no informati on 12-12-2011 - named assigning 11-03-2014 authority) no information Test twice a day no information (no no informati on 03-22-2014 named assigning authority) no information Test twice a day no information (no no informati on 03-22-2014 named assigning authority) no information Test twice a day no information (no no informati on 12-12-2011 - named assigning 11-03-2014 authority) no information Test twice a day no information (no no informati on 03-22-2014 named assigning authority) no information Test twice a day no information (no no informati on 03-22-2014 named assigning authority) no information Test twice a day no information (no no informati on 12-12-2011 - named assigning 11-03-2014 authority) no information Test twice a day no information (no no informati on 03-22-2014 named assigning authority) no information Test twice a day no information (no no informati on 03-22-2014 named assigning authority) no information Test twice a day no information (no no informati on 12-12-2011 - named assigning 11-03-2014 authority) no information Test twice a day no information (no no informati on 03-22-2014 named assigning authority) no information Test twice a day no information (no no informati on 03-22-2014 named assigning authority) no information Test twice a day no information (no no informati on 12-12-2011 - named assigning 11-03-2014 authority) no information Test twice a day no information (no no informati on 03-22-2014 named assigning authority) no information Test twice a day no information (no no informati on 03-22-2014 named assigning authority) no information Test twice a day no information (no no informati on 12-12-2011 - named assigning 11-03-2014 authority) no information Test twice a day no information (no no informati on 03-22-2014 named assigning authority) no information Test twice a day no information (no no informati on 03-22-2014 named assigning authority) no information Test twice a day no information (no no informati on 12-12-2011 - named assigning 11-03-2014 authority) no information Test twice a day no information (no no informati on 03-22-2014 named assigning authority) no information Test twice a day no information (no no informati on 03-22-2014 named assigning authority) no information Test twice a day no information (no no informati on 12-12-2011 - named assigning 11-03-2014 authority) no information Test twice a day no information (no no informati on 03-22-2014 named assigning authority) no information Test twice a day no information (no no informati on 03-22-2014 named assigning authority) no information Test twice a day no information (no no informati on 12-12-2011 - named assigning 11-03-2014 authority) Payers Normalized Payer Value Unknown 100 percent ([id number]) Medicaid no information Hospital course Narrative 2019-03-21 Note Type Note Facility Hospital course Narrative [facility] ([id number]) ( ) Evaluation note Note Type Note Facility Evaluation note No Data Found [facility] ([id number]) ( ) Advance Directives Directive Response Recor ded Date/Time Advance Directives No 6:05pm Organ Donor Yes 05/09/15 6:05pm Resuscitation Status Full Code 05/09/15 6:05pm Directive Response Recor ded Date/Time Do you have an Advanced Directive? No 07/21/06 11:01am Advance Directives No 10:37pm Living Will No 10/02/11 10:37pm Health Care Proxy No 6:44pm Power of [employer] for Health Care No 10/02/11 10:37pm Organ, Tissue, or Eye Donor No 10/02/11 10:37pm Do you have a signed organ donor card? No 07/21/06 11:01am Directive Response Recor ded Date/Time Do you have an Advanced Directive? No 07/21/06 11:01am Advance Directives No 10:37pm Living Will No 10/02/11 10:37pm Health Care Proxy No 10:56am Power of [employer]namental [employer]er for Health Care No 10/02/11 10:37pm Organ, Tissue, or Eye Donor No 10/02/11 10:37pm Do you have a signed organ donor card? No 07/21/06 11:01am Discharge Instructions Should you have any questions prior to discharge, please contact a member of your healthcare team. If you have left the hospital and have any questions, please contact your primary care physician. HOME MEDICATION INSTRUCTIONS: Medication(s) changed: TAKE ALL HOME MEDS NORMAL HOME DIET: DIABETIC ACTIVITY INSTRUCTIONS(list limitations): No heavy lifting GREATER THAN 10LBS; No hard or heavy excerise/activity. May Shower, Gradually resume normal activities. SCRIPTS WRITTEN BY DOCTOR GIVEN TO PATIENT? Yes, for what? NORCO 1/2-1 TAB PO Q 4 HRS PRN PAIN; METROPROLOL 25MG PO BID TAKE MILK OF MAGNESIA FOR CONSTIPATION FOLLOW UP APPOINTMENT: Call to make appt when Dr office is open; MAKE APPOINTMENT FOR 10 DAYS POST SURGERY; [phone] CONTACT PHYSICIAN IF YOU EXPERIENCE ANY: pain, dizziness, bleeding, numbness in your hands/feet, fever. Shortness of Breath, Odor or drainage from incision, Difficulty urinating. Swelling of extremities, Difficulty swallowing. PERSONAL ITEMS RETURNED: Yes. INSTRUCTIONS GIVEN AND DISCHARGE TO: Patient. INSTRUCTIONS GIVEN BY (TYPE IN NAME AND DATE) Bouchra MA RN Summary Purpose eClinicalWorks Submission Additional Source Comments This clinical document has been generated using [employer] software that has been certified by the Office of the National Coordinator for Health Information Technology (ONC [id number]) and the National Committee for Hide Examiner (NCQA, as an eMeasure certified technology). FOR RECORDS PERTAINING TO PATIENTS WHO ARE OR HAVE BEEN ENROLLED IN A CHEMICAL D EPENDENCY/SUBSTANCE ABUSE PROGRAM, SOME INFORMATION MAY BE OMITTED. This clinica l summary was aggregated from multiple sources. Caution should be exercised in using it in the provision of clinical care. This summary normalizes information from multiple sources, and as a consequence, information in this document may ma terially change the coding, format and clinical context of patient data. In sindy tion, data may be omitted in some cases. CLINICAL DECISIONS SHOULD BE BASED ON T HE PRIMARY CLINICAL RECORDS. [facility] provides no warranty or guara ntee of the accuracy or completeness of information in this document.The followi ng information is based on time limited clinical information UNRECOGNIZED CONTENT PROVIDED BELOW FOR UNRECOGNIZED SECTION MEDICAL (GENERAL) HISTORY Type Description Date Medical History hypertension Medical History type II diabetes Medical History chronic pain Surgical History section Surgical History cholecystectomy Surgical History appendectomy Surgical History tubal ligation Hospitalization History Surgery(s)/C hildbirth(s) only UNRECOGNIZED CONTENT PROVIDED BELOW FOR UNRECOGNIZED SECTION REASON FOR VISIT [id number]
--- OUTSIDE RECORDS SUMMARY | 2019-10-27 11:25 | XMS REPORT ---
Discharge Summary 2.1 Created on: 04/07/2019 ELENA GARCIA : 1960 Sex: Female Author Author ELENA DAVILA Organization Unknown Address [address] [facility] [address] [place], [place] [address] Care Team Providers Care Log Rafter Name Role Phone Xwatchlist ITZEL VELÁSQUEZ MD Anesth ELVIS SOSA GUNITE MIXER Anesth MARGA Verma DO Attending Functional Status No Data Found Immunization Immunization Date Status Additional Notes Code Code System influenza, split (incl. purified surface antigen) 03/12/2006 Completed 15 CVX influenza, split (incl. purified surface antigen) 06/29/2007 Completed 15 CVX pneumococcal polysaccharide PPV23 Completed 33 CVX Tdap 01/30/2013 Completed 115 CVX Tdap 11/14/2014 Completed 115 CVX zoster live 01/31/2013 C ompleted 121 CVX Influenza, seasonal, injectable 03/28/2013 Completed 141 CVX influenza, injectable, quadrivalent, preservative free 03/13/2015 Completed 150 CVX influenza, injectable, quadrivalent, preservative free 05/12/2016 Completed 150 CVX influenza, injectable, quadrivalent, preservative free 02/24/2017 Completed 150 CVX influenza, injectable, quadrivalent, preservative free 01/10/2019 Completed 150 CVX Mental Status No Data Found Results PHOSPHORUS - Collect Date/Time: 03/23/20 19 07:28 [facility] ID: [id number] - [id number] [address] [facility] [address], [place], [place], [address] LOINC: 2777-1 Test Value Unit Reference Range Code Code System PHOSPHORUS 2.9 MG/DL L=2.5 H=4.5 2777-1 LOINC MAGNESIUM - Collect Date/Time: 9 07:28 [facility] [employer] [facility] ID: [id number] [address] [facility] [address], [place], [place], [address] LOINC: 79646-2 Test Value Unit Reference Range Code Code System MAGNESIUM 1.4 MG/DL L=1.7 H=2.8 91359-1 LOINC COMPREHENSIVE METABOLIC PANEL - Collect Date/Time: 03/23/2019 07:28 [facility] [employer] [facility] ID: [id number] - [id number] [address] [facility] [address], [place], [place], [address] LOINC: 52940-9 Test Value Unit Reference Range Code Code System GLUCOSE 136 MG/DL L=70 H=100 2345-7 LOINC SODIUM 137 MEQ/L L=135 H=148 2951-2 LOINC POTASSIUM 4.2 MEQ/L L=3.5 H=5.3 2823-3 LOINC CHLORIDE 101 MEQ/L L=96 H=110 2075-0 LOINC CO2 25 MEQ/L L=22 H=29 2028-9 LOINC BUN 22 MG/DL L=8 H=22 3094-0 LOINC CREATININE 2.04 MG/DL L=0.57 H=1.11 2160-0 LOINC SGOT/AST 54 IU/L L=10 H=40 1920-8 LOINC SGPT/ALT 75 IU/L L=8 H=54 1742-6 LOINC ALK PHOS 72 IU/L L=40 H=150 6768-6 LOINC TOTAL PROTEIN 7.1 G/DL L=5.5 H=8.5 2885-2 LOINC ALBUMIN 4.0 G/DL L=3.1 H=5.4 1751-7 LOINC TOTAL BILI 0.6 MG/DL L=0.0 H=1.5 1975-2 LOINC CALCIUM 10.1 MG/DL L=8.2 H=10.6 25309-9 LOINC AGE 58 yrs GFR NonAA 25 GFR AA 30 eGFR 25 mL/min/1.7 eGFR AA* 30 mL/min/1.7 CBC W/ AUTO DIFF (RFLX MAN DIFF IF IND) - Collect Date/Time: 03/23/2019 07:28 [facility] [employer] [facility] ID: [id number] [address], [place], [place], [address] LOINC: 70193-1 Test Value Unit Reference Range Code Code System WBC 10.8 TH/CMM L=4.5 H=10.8 22274-8 LOINC RBC 3.40 ML/CMM L=4.20 H=5.40 789-8 LOINC HGB 9.7 G/DL L=12.0 H=16.0 718-7 LOINC HCT 31.3 % L=37.0 H=47.0 4544-3 LOINC MCV 92 FL L=81 H=99 MCH 28.5 PG L=27.0 H=33.0 MCHC 31.0 G/DL L=31.0 H=36.0 RDW SD 48 FL L=36 H=50 RDW CV 14.3 % L=0.0 H=14.8 MPV 9.6 FL L=9.3 H=12.5 PLT 280 TH/CMM L=130 H=440 777-3 LOINC NRBC# 0.00 TH/CMM L=0.00 H=0.00 NRBC% 0.0 /100WBC L=0.0 H=2.0 %NEUT 67.4 % %LYMP 24.7 % %MONO 5.3 % %EOS 2.0 % %BASO 0.3 % #NEUT 7.26 TH/CMM L=2.10 H=8.20 #LYMP 2.66 TH/CMM L=0.90 H=5.20 #MONO 0.57 TH/CMM L=0.16 H=1.00 #EOS 0.21 TH/CMM L=0.00 H=0.80 #BASO 0.03 TH/CMM L=0.00 H=0.20 MANUAL DIFF NOT IND TSH - Collect Date/Time: 03/22/2019 07:1 0 [employer] [facility] ID: [id number] - [id number] [address], [place], [place], [address] LOINC: 17336-1 Test Value Unit Reference Range Code Code System TSH 0.25 mIU/L L=0.35 H=4.94 17760-8 LOINC T4 - Collect Date/Time: 03/22/2019 07:10 [facility] ID: [id number] [address] [facility] [address] [place], [place], [address] LOINC: 3026-2 Test Value Unit Reference Range Code Code System T4 8.4 UG/DL L=4.5 H=12.0 3026-2 LOINC PHOSPHORUS - Collect Date/Time: 03/22/20 19 07:10 [facility] ID: [id number] [address] [facility] [address] [place], [place], [address] LOINC: 2777-1 Test Value Unit Reference Range Code Code System PHOSPHORUS 2.4 MG/DL L=2.5 H=4.5 2777-1 LOINC MAGNESIUM - Collect Date/Time: 9 07:10 [facility] ID: [id number] [address] [facility] [address] [place], [place], [address] LOINC: 86232-9 Test Value Unit Reference Range Code Code System MAGNESIUM 1.6 MG/DL L=1.7 H=2.8 85258-1 LOINC COMPREHENSIVE METABOLIC PANEL - Collect Date/Time: 03/22/2019 07:10 [facility] ID: [id number] [address] [facility] [address], [place], [place], [address] LOINC: 28966-8 Test Value Unit Reference Range Code Code System GLUCOSE 185 MG/DL L=70 H=100 2345-7 LOINC SODIUM 141 MEQ/L L=135 H=148 2951-2 LOINC POTASSIUM 4.8 MEQ/L L=3.5 H=5.3 2823-3 LOINC CHLORIDE 106 MEQ/L L=96 H=110 2075-0 LOINC CO2 25 MEQ/L L=22 H=29 2028-9 LOINC BUN 21 MG/DL L=8 H=22 3094-0 LOINC CREATININE 1.94 MG/DL L=0.57 H=1.11 2160-0 LOINC SGOT/AST 138 IU/L L=10 H=40 1920-8 LOINC SGPT/ALT 156 IU/L L=8 H=54 1742-6 LOINC ALK PHOS 68 IU/L L=40 H=150 6768-6 LOINC TOTAL PROTEIN 6.5 G/DL L=5.5 H=8.5 2885-2 LOINC ALBUMIN 3.8 G/DL L=3.1 H=5.4 1751-7 LOINC TOTAL BILI 0.5 MG/DL L=0.0 H=1.5 1975-2 LOINC CALCIUM 9.6 MG/DL L=8.2 H=10.6 77036-3 LOINC AGE 58 yrs GFR NonAA 26 GFR AA 32 eGFR 26 mL/min/1.7 eGFR AA* 32 mL/min/1.7 CBC W/ AUTO DIFF (RFLX MAN DIFF IF IND) - Collect Date/Time: 03/22/2019 07:10 [facility] [employer] [facility] ID: [id number] - [id number] [address], [place], [place], [address] LOINC: 58172-0 Test Value Unit Reference Range Code Code System WBC 9.6 TH/CMM L=4.5 H=10.8 75246-5 LOINC RBC 3.22 ML/CMM L=4.20 H=5.40 789-8 LOINC HGB 9.3 G/DL L=12.0 H=16.0 718-7 LOINC HCT 29.5 % L=37.0 H=47.0 4544-3 LOINC MCV 92 FL L=81 H=99 MCH 28.9 PG L=27.0 H=33.0 MCHC 31.5 G/DL L=31.0 H=36.0 RDW SD 47 FL L=36 H=50 RDW CV 14.0 % L=0.0 H=14.8 MPV 9.3 FL L=9.3 H=12.5 PLT 265 TH/CMM L=130 H=440 777-3 LOINC NRBC# 0.00 TH/CMM L=0.00 H=0.00 NRBC% 0.0 /100WBC L=0.0 H=2.0 %NEUT 79.4 % %LYMP 14.4 % %MONO 5.6 % %EOS 0.0 % %BASO 0.2 % #NEUT 7.58 TH/CMM L=2.10 H=8.20 #LYMP 1.38 TH/CMM L=0.90 H=5.20 #MONO 0.54 TH/CMM L=0.16 H=1.00 #EOS 0.00 TH/CMM L=0.00 H=0.80 #BASO 0.02 TH/CMM L=0.00 H=0.20 MANUAL DIFF NOT IND BEDSIDE GLUCOSE - Collect Date/Time: 14:47 [facility] [employer] [facility] ID: [id number] [address], [address] LOINC: 79796-5 Test Value Unit Reference Range Code Code System GLUCOSE POCT 246 MG/DL L=70 H=100 26693-5 LOINC BEDSIDE GLUCOSE - Collect Date/Time: 10:35 [facility] [employer] [facility] ID: [id number] [address] [facility] [address], [place], [address] LOINC: 73200-2 Test Value Unit Reference Range Code Code System GLUCOSE POCT 101 MG/DL L=70 H=100 49797-2 LOINC TYPE AND CROSS - Collect Date/Time: 02/23 10:07 [facility] [employer] [facility] ID: [id number] [address] [facility] [address], [place], [place], [address] LOINC: 57088-8 Test Value Unit Reference Range Code Code System ABO/Rh Type A Positive Antibody Screen-Gel Negative TEST URINE - Collect Date/Time : 03/21/2019 10:07 [employer] [facility] ID: [id number] - [id number] [address] [facility] [address] [place], [place], [address] LOINC: 2105-07 Test Value Unit Reference Range Code Code System TEST UR NEGATIVE 3 LOINC Social History Type Status Start Date End Date Code Code System Smoking History Never smoker (Never Smoked ) [id number] SNOMED-CT Vital Signs Vital Sign Value Unit [place] Value [place] Unit Date/Time Recent/Initial? Code Cod e System Systolic Blood Pressure 129 mm[Hg] 03/24/2019 08:52 Most Recent 8480-6 LOINC Diastolic Blood Pressure 78 mm[Hg] 03/24/2019 08:52 Most Recent 8462-4 LOINC Systolic Blood Pressure 120 mm[Hg] 03/21/2019 14:07 Initial 8480-6 LOINC Diastolic Blood Pressure 51 mm[Hg] 03/21/2019 14:07 Initial 8462-4 LOINC O2 Saturation 100 % 03/24/2019 08:52 Most Recent 28415-5 LOINC O2 Saturation 94 % 03/21/2019 14:08 Initi al 11863-6 LOINC Pulse 83.0 /min 03/24/2019 08:52 Most Recent 8867-4 LOINC Pulse 75.0 /min 03/21/2019 14:07 Initi al 8867-4 LOINC Respiration 20 /min 03/24/2019 08:52 Most Recent 9279-1 LOINC Respiration 17 /min 03/21/2019 14:07 Initi al 9279-1 LOINC Temperature 37.1 Jasmin 98.8 F 03/24/2019 08:52 Most Recent 8310-5 LOINC Temperature 36.2 Jasmin 97.2 F 03/21/2019 15:30 Initi al 8310-5 LOINC Assessment No Data Found Hospital Discharge Instructions Should you have any questions [...] GIVEN TO PATIENT? Yes, for what? NORCO 10/ 1/2-1 TAB PO Q 4 HRS PRN PAIN; METROPROLOL 25MG PO BID TAKE MILK OF MAGNESIA FOR CONSTIPATION FOLLOW UP APPOINTMENT: Call to make appt when Dr damian is open; MAKE APPOINTMENT FOR 10 DAYS POST SURGERY; [phone] CONTACT PHYSICIAN IF YOU EXPERIENCE ANY: pain, dizziness, bleeding, numbness in your hands/feet, fever. Shortness of Breath, Odor or drainage from incision, Difficulty urinating. Swelling of extremities, Difficulty swallowing. PERSONAL ITEMS RETURNED: Yes. INSTRUCTIONS GIVEN AND DISCHARGE TO: Patient. INSTRUCTIONS GIVEN BY (TYPE IN NAME AND DATE) Bouchra MA RN Reason For Referral No Data Found Hospital Course You were admitted to [facility] on 03/21/2019 09:38 with a principal diagnosis of Leiomyoma of uterus, unspecified You were discharged from [facility] on 03/24/2019 10:40 Medications Medication Start Date En d Date Route Frequency Dose Code Code System Medication Instructions DUONEB [ATROVENT/ALBUTEROL] 0.5/3 MG 03/21/2019 Unknown INHALATION PRN 1 unit(s) 4762022 RxNorm 1.0 EA INHALATION NEEDED MORPHINE INJ: 2MG/ML 1 ML SYRINGE 1 Unknown IV PUSH PRN 2 MG 351185 RxNorm 2.0 MG IV PUSH NEEDED NORCO [HYDROCODONE/APAP] 10/325MG TAB 03/21/2019 Unknown BY MOUTH PRN 1 TAB 931521 RxNorm 1.0 TAB BY MOUTH NEEDED ONDANSETRON [ZOFRAN] INJ 4 MG/2 ML VIAL 03/21/2019 Unknown SLOW IV PUSH PRN Q 4 HRS 4 MG [id number] RxNorm 4.0 MG SLOW IV PUSH EVERY 4 HOURS NEE FUROSEMIDE [LASIX] TABLET: 40 MG 9 Unknown BY MOUTH DAILY 40 MG 383811 RxNorm 40.0 MG BY MOUTH DAILY ATORVASTATIN [LIPITOR] TABLET : 20 MG 03/21/2019 Unknown BY MOUTH BEDTIME 20 MG 601977 RxNorm 20.0 MG BY MOUTH AT BEDTIME ALPRAZOLAM [XANAX] TABLET : 1 MG 9 Unknown BY MOUTH PRN 1 MG [id number] RxNorm 1.0 MG BY MOUTH NEEDED PANTOPRAZOLE [PROTONIX] TABLET : 40 MG 03/21/2019 Unknown BY MOUTH DAILY 40 MG 076276 RxNorm 40.0 MG BY MOUTH DAILY LEVOTHYROXINE (SYNTHROID)112 MCG 9 Unknown BY MOUTH DAILY 112 MCG 950975 RxNorm 112.0 MCG BY MOUTH DAILY INSULIN [NOVOLOG] 100UNITS/ML (SQ) 10ML 03/21/2019 Unknown SUBCUTANEOUS OPTIONS PRN 076255 RxNorm Unit(s) SUBCUTANEOUS OPTIONS NEEDED SALINE LOCK FLUSH 10 ML SYR 03/22/2019 Unknown IV PUSH PRN 1 unit(s) 970886 RxNorm 1.0 EA IV PUSH NEEDED ENOXAPARIN 40 MG/0.4ML YELLOW [LOVENOX] 03/22/2019 Unknown SUBCUTANEOUS OPTIONS Q24H 40 MG 762791 RxNorm 40.0 MG SUBCUTANEOUS OPTIONS EVERY 24 HOURS INSULIN [LEVEMIR] 100UNITS/ML 10ML VIAL 03/22/2019 Unknown SUBCUTANEOUS OPTIONS HS 23 Unit(s) 911683 RxNorm 23.0 Unit(s) SUBCUTA NEOUS OPTIONS AT BEDTIME GLIPIZIDE [GLUCOTROL] TABLET: 5 MG 1 Unknown BY MOUTH BIDM 10 MG 103379 RxNorm 10.0 MG BY MOUTH WITH MEALS 2 TIMES METFORMIN [GLUCOPHAGE] TABLET: 500 MG 03/22/2019 Unknown BY MOUTH BIDM 1000 MG 808903 RxNorm 1000.0 MG BY MOUTH WITH MEALS 2 TIMES LISINOPRIL 20MG TAB 03/22/2019 Unknown BY MOUTH DAILY 20 MG [id number] RxNorm 20.0 MG BY MOUTH DAILY MAGNESIUM OXIDE 400 MG TABLET 03/22/2019 Unknown BY MOUTH BID 400 MG 439192 RxNorm 400.0 MG BY MOUTH TWO TIMES A DAY PhosPHA 250 NEUTRAL TABLET 03/22/2019 Unknown BY MOUTH QIDM 2 unit(s) 574198 RxNorm 2.0 EA BY MOUTH WITH MEALS AND BED DOCUSATE SODIUM 100 MG [COLACE] CAPSULE 03/22/2019 Unknown BY MOUTH HS 100 MG [id number] RxNorm 100.0 MG BY MOUTH AT BEDTIME METOPROLOL [LOPRESSOR] TABLET: 25 MG 03/22/2019 Unknown BY MOUTH BID 25 MG [id number] RxNorm 25.0 MG BY MOUTH TWO TIMES A DAY AMLODIPINE [NORVASC] TABLET : 5 MG 1 Unknown BY MOUTH BID 5 MG 357855 RxNorm 5.0 MG BY MOUTH TWO TIMES A DAY Procedures Procedure Name Date Stat us Code Code System Resection of Uterus, Supracervical, Open Approach 03/21/2019 completed [id number] ICD10 PCS Resection of Bilateral Ovaries, Open Approach 03/21/2019 completed [id number] ICD10 PCS Resection of Bilateral Fallopian Tubes, Open Approach 03/21/2019 completed [id number] ICD10 PCS Drainage of Pelvic Cavity with Drainage Device, Open A pproach 03/21/2019 completed [id number] ICD10 PCS Insertion of Infusion Device into Spinal Canal, Percutaneous Approach 03/21/2019 completed 00H U33Z ICD10 PCS Implants No Data Found Problems No Data Found Allergies Allergy Substance Reaction Severity Start Date Concern Status Code Code System ASA (aspirin) Active PCN (penicillin) Active CODEINE Active Plan of Treatment No Data Found Encounters No Data Found Goals No Data Found Discharge Medications No Data Found Discharge Diagnosis Discharge Diagnosis Diagnosis Code Start Date Leiomyoma of uterus, unspecified D259 03/21/2019 Health Concerns Section No Data Found
--- OUTSIDE RECORDS SUMMARY | 2019-10-27 11:25 | XMS REPORT ---
Discharge Summary 2.1 Created on: 04/07/2019 ELENA GARCIA : 1960 Sex: Female Author Author ELENA DAVILA Organization Unknown Address [address] [facility] [address] [place], [place] [address] Care Team Providers Care Mailroom Clerk Name Role Phone Xwatchlist ITZEL VELÁSQUEZ MD Anesth ELVIS SOSA PAYROLL MASTER Anesth MARGA Verma DO Attending Functional Status [...] PHOSPHORUS - Collect Date/Time: 03/23/20 19 07:28 [facility] ID: [id number] - [id number] [address] [facility] [address], [place], [place], [address] LOINC: 2777-1 Test Value Unit Reference Range Code Code System PHOSPHORUS 2.9 MG/DL L=2.5 H=4.5 2777-1 LOINC MAGNESIUM - Collect Date/Time: 9 07:28 [facility] ID: [id number] - [id number] [address] [facility] [address], [place], [place], [address] LOINC: 13900-4 Test Value Unit Reference Range Code Code System MAGNESIUM 1.4 MG/DL L=1.7 H=2.8 38180-4 LOINC COMPREHENSIVE METABOLIC PANEL - Collect Date/Time: 03/23/2019 07:28 [facility] ID: [id number] - [id number] [address] [facility] [address], [place], [place], [address] LOINC: 05182-2 Test Value Unit Reference Range Code Code [...] 1975-2 LOINC CALCIUM 10.1 MG/DL L=8.2 H=10.6 73569-4 LOINC AGE 58 yrs GFR NonAA 25 GFR AA 30 eGFR 25 mL/min/1.7 eGFR AA* 30 mL/min/1.7 CBC W/ AUTO DIFF (RFLX MAN DIFF IF IND) - Collect Date/Time: 03/23/2019 07:28 [facility] ID: [id number] - [id number] [address], [place], [place], [address] LOINC: 06010-2 Test Value Unit Reference Range Code Code System WBC 10.8 TH/CMM L=4.5 H=10.8 56818-6 LOINC RBC 3.40 ML/CMM L=4.20 H=5.40 789-8 [...] TSH - Collect Date/Time: 03/22/2019 07:1 0 [facility] ID: [id number] - [id number] [address], [place], [place], [address] LOINC: 36248-7 Test Value Unit Reference Range Code Code System TSH 0.25 mIU/L L=0.35 H=4.94 57438-4 LOINC T4 - Collect Date/Time: 03/22/2019 07:10 [facility] ID: [id number] [address] [facility] [address] [place], [place], [address] LOINC: 3026-2 Test Value Unit Reference Range Code Code System T4 8.4 UG/DL L=4.5 H=12.0 3026-2 LOINC PHOSPHORUS - Collect Date/Time: 03/22/20 19 07:10 [facility] ID: [id number] - [id number] [address] [facility] [address] [place], [place], [address] LOINC: 2777-1 Test Value Unit Reference Range Code Code System PHOSPHORUS 2.4 MG/DL L=2.5 H=4.5 2777-1 LOINC MAGNESIUM - Collect Date/Time: 9 07:10 [facility] ID: [id number] [address] [facility] [address] [place], [place], [address] LOINC: 71384-3 Test Value Unit Reference Range Code Code System MAGNESIUM 1.6 MG/DL L=1.7 H=2.8 83281-6 LOINC COMPREHENSIVE METABOLIC PANEL - Collect Date/Time: 03/22/2019 07:10 [facility] ID: [id number] [address] [facility] [address], [place], [place], [address] LOINC: 97136-3 Test Value Unit Reference Range Code Code [...] 1975-2 LOINC CALCIUM 9.6 MG/DL L=8.2 H=10.6 62926-2 LOINC AGE 58 yrs GFR NonAA 26 GFR AA 32 eGFR 26 mL/min/1.7 eGFR AA* 32 mL/min/1.7 CBC W/ AUTO DIFF (RFLX MAN DIFF IF IND) - Collect Date/Time: 03/22/2019 07:10 [facility] ID: [id number] - [id number] [address], [place], [place], [address] LOINC: 03835-7 Test Value Unit Reference Range Code Code System WBC 9.6 TH/CMM L=4.5 H=10.8 41503-1 LOINC RBC 3.22 ML/CMM L=4.20 H=5.40 789-8 [...] IND BEDSIDE GLUCOSE - Collect Date/Time: 14:47 [employer] ID: [id number] - [id number] [address], [id number] LOINC: 33246-1 Test Value Unit Reference Range Code Code System GLUCOSE POCT 246 MG/DL L=70 H=100 42308-6 LOINC BEDSIDE GLUCOSE - Collect Date/Time: 10:35 [employer] ID: [id number] - [id number] [address] [facility] [address], [place], [address] LOINC: 82023-3 Test Value Unit Reference Range Code Code System GLUCOSE POCT 101 MG/DL L=70 H=100 75241-9 LOINC TYPE AND CROSS - Collect Date/Time: 02/23 10:07 [employer] ID: [id number] - [id number] [address] [facility] [address], [place], [place], [id number] LOINC: 84246-5 Test Value Unit Reference Range Code Code System ABO/Rh Type A Positive Antibody Screen-Gel Negative TEST URINE - Collect Date/Time : 03/21/2019 10:07 [facility] ID: [id number] - [id number] [address] [facility] [address] [place], [place], [address] LOINC: 2105-07 Test Value Unit Reference Range Code Code System TEST UR NEGATIVE 3 LOINC Social History Type Status Start Date End Date Code Code System Smoking History Never smoker (Never Smoked ) 503852759 SNOMED-CT Vital Signs Vital Sign Value Unit [place] Value [place] Unit Date/Time Recent/Initial? Code Cod e System Systolic Blood Pressure 129 mm[Hg] 03/24/2019 08:52 Most Recent 8480-6 LOINC Diastolic Blood Pressure 78 mm[Hg] 03/24/2019 08:52 Most Recent 8462-4 LOINC Systolic Blood Pressure 120 mm[Hg] 03/21/2019 14:07 Initial 8480-6 LOINC Diastolic Blood Pressure 51 mm[Hg] 03/21/2019 14:07 Initial 8462-4 LOINC O2 Saturation 100 % 03/24/2019 08:52 Most Recent 08008-6 LOINC O2 Saturation 94 % 03/21/2019 14:08 Initi al 17781-0 LOINC Pulse 83.0 /min 03/24/2019 08:52 Most [...] MAKE APPOINTMENT FOR 10 DAYS POST SURGERY; [phone] CONTACT PHYSICIAN IF YOU EXPERIENCE ANY: pain, dizziness, bleeding, numbness in your hands/feet, fever. Shortness of Breath, Odor or drainage from incision, Difficulty urinating. Swelling of extremities, Difficulty swallowing. PERSONAL ITEMS RETURNED: Yes. INSTRUCTIONS GIVEN AND DISCHARGE TO: Patient. INSTRUCTIONS GIVEN BY (TYPE IN NAME AND DATE) Bouchra MA RN Reason For Referral No Data Found Hospital Course You were admitted to [facility] on 03/21/2019 09:38 with a principal diagnosis of Leiomyoma of uterus, unspecified You were discharged from [facility] on 03/24/2019 10:40 Medications Medication Start Date En d Date Route Frequency Dose Code Code System Medication Instructions DUONEB [ATROVENT/ALBUTEROL] 0.5/3 MG 03/21/2019 Unknown INHALATION PRN 1 unit(s) 1017397 RxNorm 1.0 EA INHALATION NEEDED MORPHINE INJ: 2MG/ML 1 ML SYRINGE 1 Unknown IV PUSH PRN 2 MG 185224 RxNorm 2.0 MG IV PUSH NEEDED NORCO [HYDROCODONE/APAP] 10/325MG TAB 03/21/2019 Unknown BY MOUTH PRN 1 TAB 504472 RxNorm 1.0 TAB BY MOUTH NEEDED ONDANSETRON [ZOFRAN] INJ 4 MG/2 ML VIAL 03/21/2019 Unknown SLOW IV PUSH PRN Q 4 HRS 4 MG 3503108 RxNorm 4.0 MG SLOW IV PUSH EVERY 4 HOURS NEE FUROSEMIDE [LASIX] TABLET: 40 MG 9 Unknown BY MOUTH DAILY 40 MG 363557 RxNorm 40.0 MG BY MOUTH DAILY ATORVASTATIN [LIPITOR] TABLET : 20 MG 03/21/2019 Unknown BY MOUTH BEDTIME 20 MG 771826 RxNorm 20.0 MG BY MOUTH AT BEDTIME ALPRAZOLAM [XANAX] TABLET : 1 MG 9 Unknown BY MOUTH PRN 1 MG 088216 RxNorm 1.0 MG BY MOUTH NEEDED PANTOPRAZOLE [PROTONIX] TABLET : 40 MG 03/21/2019 Unknown BY MOUTH DAILY 40 MG 181372 RxNorm 40.0 MG BY MOUTH DAILY LEVOTHYROXINE (SYNTHROID)112 MCG 9 Unknown BY MOUTH DAILY 112 MCG 539170 RxNorm 112.0 MCG BY MOUTH DAILY INSULIN [NOVOLOG] 100UNITS/ML (SQ) 10ML 03/21/2019 Unknown SUBCUTANEOUS OPTIONS PRN 334836 RxNorm Unit(s) SUBCUTANEOUS OPTIONS NEEDED SALINE LOCK FLUSH 10 ML SYR 03/22/2019 Unknown IV PUSH PRN 1 unit(s) 121697 RxNorm 1.0 EA IV PUSH NEEDED ENOXAPARIN 40 MG/0.4ML YELLOW [LOVENOX] 03/22/2019 Unknown SUBCUTANEOUS OPTIONS Q24H 40 MG 730655 RxNorm 40.0 MG SUBCUTANEOUS OPTIONS EVERY 24 HOURS INSULIN [LEVEMIR] 100UNITS/ML 10ML VIAL 03/22/2019 Unknown SUBCUTANEOUS OPTIONS HS 23 Unit(s) 450276 RxNorm 23.0 Unit(s) SUBCUTA NEOUS OPTIONS AT BEDTIME GLIPIZIDE [GLUCOTROL] TABLET: 5 MG 1 Unknown BY MOUTH BIDM 10 MG 505162 RxNorm 10.0 MG BY MOUTH WITH MEALS 2 TIMES METFORMIN [GLUCOPHAGE] TABLET: 500 MG 03/22/2019 Unknown BY MOUTH BIDM 1000 MG 954214 RxNorm 1000.0 MG BY MOUTH WITH MEALS 2 TIMES LISINOPRIL 20MG TAB 03/22/2019 Unknown BY MOUTH DAILY 20 MG 428661 RxNorm 20.0 MG BY MOUTH DAILY MAGNESIUM OXIDE 400 MG TABLET 03/22/2019 Unknown BY MOUTH BID 400 MG 706326 RxNorm 400.0 MG BY MOUTH TWO TIMES A DAY PhosPHA 250 NEUTRAL TABLET 03/22/2019 Unknown BY MOUTH QIDM 2 unit(s) 641843 RxNorm 2.0 EA BY MOUTH WITH MEALS AND BED DOCUSATE SODIUM 100 MG [COLACE] CAPSULE 03/22/2019 Unknown BY MOUTH HS 100 MG 5234461 RxNorm 100.0 MG BY MOUTH AT BEDTIME METOPROLOL [LOPRESSOR] TABLET: 25 MG 03/22/2019 Unknown BY MOUTH BID 25 MG [id number] RxNorm 25.0 MG BY MOUTH TWO TIMES A DAY AMLODIPINE [NORVASC] TABLET : 5 MG 1 Unknown BY MOUTH BID 5 MG [id number] RxNorm 5.0 MG BY MOUTH TWO TIMES A DAY Procedures Procedure Name Date Stat us Code Code System Resection of Uterus, Supracervical, Open Approach 03/21/2019 completed [id number] ICD10 PCS Resection of Bilateral Ovaries, Open Approach 03/21/2019 completed [id number] ICD10 PCS Resection of Bilateral Fallopian Tubes, Open Approach 03/21/2019 completed [id number] ICD10 PCS Drainage of Pelvic Cavity with Drainage Device, Open A pproach 03/21/2019 completed [id number] ICD10 PCS Insertion of Infusion Device into [...]
[2019-10-27 11:26] LABS: BASOPHILS % (AUTO) 0 % (0-10); EOSINOPHILS % (AUTO) 0 % (0-10); HEMATOCRIT 32 % (35-52); HEMOGLOBIN 10.3 G/DL (11.5-16.0); LYMPHOCYTES # (AUTO) 1.1 X 10^3 (1.0-4.0); LYMPHOCYTES % (AUTO) 7 % (12-44); MEAN CORPUSCULAR HEMOGLOBIN 28 PG (25-34); MEAN CORPUSCULAR HGB CONC 32 G/DL (32-36); MEAN CORPUSCULAR VOLUME 88 FL (80-99); MEAN PLATELET VOLUME 9.9 FL (7.4-10.4); MONOCYTES # (AUTO) 0.9 X 10^3 (0.0-1.0); MONOCYTES % (AUTO) 6 % (0-12); NEUTROPHILS # (AUTO) 13.2 X 10^3 (1.8-7.8); NEUTROPHILS % (AUTO) 87 % (42-75); PLATELET COUNT 336 10^3/uL (130-400); RED CELL DISTRIBUTION WIDTH 15.7 % (10.0-14.5); WHITE BLOOD COUNT 15.3 10^3/uL (4.3-11.0)
--- OUTSIDE RECORDS SUMMARY | 2019-10-27 11:26 | XMS REPORT | Clinical Summary ---
Author Author Admin, Elba [employer] Address Unknown Phone Unavailable Allergies, Adverse Reactions, Alerts Allergy Name Reaction Description Start Date Severity Status Pr ovider ASPIRIN upset stomach Moderate Active Baltazar silverman MD PENICILLIN yeast infection Critical Active Baltazar Childers MD FISH Critical Active Baltazar bynum MD CODEINE Critical Active Baltazar bynum MD Conditions or Problems Problem Name Problem Code Onset Date Status Entry Date Provider Comment Standard Description Annotate ASTHMA 493.90 Active Baltazar Childers MD Asthma, unspecified DEGENERATIVE DISC DISEASE, LUMBAR SPINE 722.52 Active Baltazar Childers MD Degeneration of lumbar or lumbosacral in tervertebral disc ANXIETY 300.00 Active Baltazar Childers MD Anxiety state, unspecified RESTLESS LEG SYNDROME 333.94 Active Baltazar Nickerson MD Restless legs syndrome (RLS) DIABETES MELLITUS 250.00 Active Baltazar Childers MD Diabetes mellitus without mention of complication, type II or unspecified type, not stated as uncontrolled GERD 530.81 Active Baltazar Childers MD Esophageal reflux HYPERTENSION 401.1 Active Baltazar Childers MD Benign essential hypertension EDEMA 782.3 Active Baltazar Childers MD Edema ALLERGIC RHINITIS 477.9 Active Baltazar Childers MD Allergic rhinitis, cause unspecified MIGRAINE 346.90 Active Baltazar Childers MD Migraine, unspecified, without mention of intractable migraine, without mention of status migrainosus HYPERLIPIDEMIA 272.4 Refinement Baltazar Childers MD Other and unspecified hyperlipidemia Familial hypercholesterolemia 272.4 Active 201811/17 Baltazar Childers MD Other and unspecified hyperlipidemia CARPAL TUNNEL SYNDROME 354.0 Active Baltazar silverman MD Carpal tunnel syndrome OBESITY 278.00 Inactive Baltazar Childers MD Obesity, unspecified Morbid obesity 278.01 Refinement Baltazar Childers MD Morbid obesity Morbid obesity due to excess calories 278.01 Inactive Baltazar Childers MD Morbid obesity Obesity, class III 278.01 Refinement Ann mireles PA-C Morbid obesity Morbid obesity due to excess calories 278.01 [facility] t Baltazar Childers MD Morbid obesity Obesity Class II (BMI 35-39.9) 278.01 Refinement 10/26 Baltazar Childers MD Morbid obesity Morbid obesity due to excess calories 278.01 [facility] t Baltazar Childers MD Morbid obesity Obesity Class II (BMI 35-39.9) 278.01 Refinement 01/19 Baltazar Childers MD Morbid obesity Morbid obesity due to excess calories 278.01 [facility] t Baltazar Childers MD Morbid obesity Obesity Class II (BMI 35-39.9) 278.01 Refinement 04/12 Maria Victoria Rahman Morbid obesity Morbid obesity due to excess calories 278.01 Active Baltazar Childers MD Morbid obesity ADD 314.00 Active Baltazar Childers MD Attention deficit disorder of childhood without mention of hyperactivity DECREASED LIBIDO 799.81 Active Baltazar Wayne Decreased libido COLON POLYPS 211.3 Resolved Lolis Thomas APRN Benign neoplasm of colon PERIPHERAL NEUROPATHY 356.9 Active Baltazar Nickerson MD Unspecified hereditary and idiopathic peripheral neuropathy PERSONAL HISTORY OF COLONIC POLYPS V12.72 Active 2 Lolis Thomas APRN Personal history of colonic polyps PARESTHESIA, HANDS 782.0 Active Baltazar Childers MD Disturbance of skin sensation FH DIABETES V18.0 Active Baltazar Childers MD Family history of diabetes mellitus ANEMIA 285.9 Active Baltazar Childers MD Anemia, unspecified RENAL INSUFFICIENCY 593.9 Active Baltazar bynum MD Unspecified disorder of kidney and ureter CAD 414.00 Active Gladys Arce LRT Co ronary atherosclerosis of unspecified type of vessel, manzanita or graft OTH NONSPC ABN FINDNG RAD&OTH EXM BODY STRUCTURE 793.99 11/08 Active Jessy Joseph Other nonspecific (a bnormal) findings on radiological and other examinations of body structure NEED PROPH VACC&INOCULAT AGNST OTH SPEC DISEASE V05.8 Active Elba Shelby RMA Need for prophylacti c vaccination and inoculation against other specified disease UNSPECIFIED DISORDER OF KIDNEY AND URETER 593.9 Activ e Elbamargarette Ryan RMA Unspecified disorder of kidney and urete r LEIOMYOMA OF UTERUS, UNSPECIFIED 218.9 Active 201 08/01/12 Gayathri Hudson MD Leiomyoma of uterus, unspecified WELL WOMAN EXAMINATION V72.31 Active Gayathri aviles MD Routine gynecological examination Health screening V70.0 Active Baltazar Wayne Routine general medical examination at a health care facility Chronic pain syndrome 338.4 Active Baltazar Nickerson MD Chronic pain syndrome Chronic kidney disease stage III 585.3 Refinement 201 10/25/03 Elba ARGUETA Chronic kidney disease, Stage III (moder ate) Chronic kidney disease, stage 3 585.3 Refinement 2018 Baltazar Childers MD Chronic kidney disease, Stage III (moder ate) Chronic kidney disease, stage 4 (severe) 585.3 Refine ment Baltazar Childers MD Chronic kidney disease, Stage III (moder ate) Chronic kidney disease, stage 3 585.3 Active 2018 Baltazar Childers MD Chronic kidney disease, Stage III (moder ate) Diabetes Mellitus, Type II, controlled w/ renal complications 250.4 0 Active Baltazar Childers MD Diabetes mellitus wi th renal manifestations, type II or unspecified type, not stated as uncontrolled Diabetes Mellitus, Type II, controlled w/vascular complications 250 .70 Active Baltazar Childers MD Diabetes mellitus wi th peripheral circulatory disorders, type II or unspecified type, not stated as uncontrolled Diabetes Mellitus,Type II,controlled w/neurologic complications 250 .60 Active Baltazar Childers MD Diabetes mellitus wi th neurological manifestations, type II or unspecified type, not stated as uncontrolled Diabetes mellitus, type II, uncontrolled 250.02 Active Baltazar Childers MD Diabetes mellitus without me ntion of complication, type II or unspecified type, uncontrolled Heartburn 787.1 Active Baltazar Childers MD Heartburn Hypothyroidism 244.9 Active Carina Tucker LPN Unspecified hypothyroidism Pharyngitis 462 Resolved Baltazar Childers MD Acute pharyngitis BMI 37-37.9 adult V85.37 Refinement Baltazar matta MD Body Mass Index 37.0-37.9, adult BMI 36-36.9 V85.37 Refinement Baltazar Childers MD Body Mass Index 37.0-37.9, adult BMI 37-37.9 V85.37 Refinement Baltazar Childers MD Body Mass Index 37.0-37.9, adult BMI 36-36.9 V85.37 Refinement Baltazar Childers MD Body Mass Index 37.0-37.9, adult BMI 37-37.9 V85.37 Refinement Baltazar Childers MD Body Mass Index 37.0-37.9, adult BMI 36-36.9 V85.37 Active Baltazar Childers MD Body Mass Index 37.0-37.9, adult Screening mammogram V76.12 Active Baltazar bynum MD Other screening mammogram Sleep apnea 780.57 Active Baltazar Childers MD Unspecified sleep apnea Influenza Vaccination for Prophylaxis V04.81 Inactive Baltazar Childers MD Need for prophylactic vaccin ation and inoculation against influenza COLON POLYPS ICD-211.3 Inactive Lolis King JOSE Bynum Pharyngitis ICD-462 Inactive Baltazar Childers MD Influenza Vaccination for Prophylaxis ICD-V04.81 8 Inactive Fadumo Ruiz Medication List Medication Instructions Start Date Stop Date Generic Name NDC Status Provider Patient Instruction HYDROCODONE-ACETAMINOPHEN 7.5-325 MG ORAL TABLET Take 1 tab every 6-8 hours PRN HYDROCODONE-ACETAMINOPHEN 23201237070 Active Baltazar silverman MD Active SUCRALFATE 1 GM TABS 1 four times a day 1 hour before meals and at bedtime SUCRALFATE 88152666124 Active Fanny Hudson MA Active INSULIN SYRINGE 27G X 1/2" 0.5 ML use 1 as needed. INSULIN SYRINGE- NEEDLE U-100 85497671539 Active Fanny Hudson MA Active MAGNESIUM OXIDE 400 MG ORAL CAPSULE 1 po bid MAGNESIUM OXIDE 53773894457 Active Fadumo Ruiz Active HUMALOG 100 UNIT/ML SUBCUTANEOUS SOLUTION Take 10 units with every meal INSULIN LISPRO 27311673303 Active Baltazar Childers MD Active NOVOLOG 100 UNIT/ML SUBCUTANEOUS SOLUTION 5 units with each meal. 2 INSULIN ASPART 90941296604 No Longer Active Fanny Hudson MA Activ e ONGLYZA 2.5 MG TABS TAKE 1 TABLET BY MOUTH EVERY DAY FOR DIABETES 2 SAXAGLIPTIN HCL 68527450955 Active Baltazar Childers MD Active GLIPIZIDE 10MG TABLETS TAKE 2 TABLETS BY MOUTH TWICE DAILY GLIPIZIDE 43554316496 Active Baltazar Childers MD Active TRUE METRIX B/G TEST STRIPS 25'S TEST BLOOD SUGAR TWICE DAILY 03/02 GLUCOSE BLOOD 01825095121 Active KENDALL Juarez Active LEVOTHYROXINE 0.112MG (112MCG) TABS TAKE 1 TABLET BY MOUTH EVERY DAY LEVOTHYROXINE SODIUM 36796924481 Active Baltazar Childers MD Active AMLODIPINE BESYLATE 5MG TABLETS TAKE 1 TABLET BY MOUTH EVERY DAY FOR HYPERTENSION AMLODIPINE BESYLATE 81383709346 Active Ro yvan Childers MD Active LANTUS SOLOSTAR 100 UNIT/ML SUBCUTANEOUS SOLUTION PEN- INJECTOR 20 units am and 13 units at night INSULIN GLARGINE 29707422380 Active Baltazar Childers MD Active TRAMADOL HCL 50 MG ORAL TABLET 1 twice a day as needed for pain TRAMADOL HCL 68201082771 No Longer Active Baltazar Childers MD Active ROBAXIN 500 MG ORAL TABLET Take 1.5 (one and one half) tabs once daily METHOCARBAMOL 90316207680 Active Baltazar Childers MD Active TRUE METRIX AIR GLUCOSE METER DEVICE Use as directed BLOOD GLUCOSE MONITORING SUPPL 27304081040 Active Baltazar Childers MD Activ e NORTRIPTYLINE HCL 50 MG ORAL CAPSULE 1 twice a day for neuropathy 2 NORTRIPTYLINE HCL 44149698223 Active Baltazar Childers MD Acti ve ASPIRIN 81 MG TBEC Take one (1) tablet by mouth daily ASPIRIN 53670314892 Active Baltazar Childers MD Active GABAPENTIN 300 MG ORAL CAPSULE 1 three times a day 201 12/03/26 GABAPENTIN 27190960935 No Longer Active Baltazar Childers MD Activ e LISINOPRIL 20 MG ORAL TABLET 1 tablet by mouth daily at night 2016 LISINOPRIL 43697039544 Active Baltazar Childers MD Active ZITHROMAX Z-ISAIAS 250 MG ORAL TABLET Take two tablets to day and then 1 tablet daily for 4 days AZITHROMYCIN 47888891552 No Longer A ctive Baltazar Childers MD Active SUCRALFATE 1 GM ORAL TABLET 1 four times a day to coat the stoma ch SUCRALFATE 49124096451 No Longer Active Baltazar Childers MD Active PEN NEEDLES 31G X 6 MM use 1 daily INSULIN PEN NE EDLE 31912906661 Active KENDALL Juarez Active TOUJEO SOLOSTAR 300 UNIT/ML SUBCUTANEOUS SOLUTION PEN- INJECTOR 10 units SC daily INSULIN GLARGINE 01612585848 No Longer Active Rola ARGUETA Active NAPROXEN SODIUM 220 MG ORAL TABLET 1 three times a day as needed NAPROXEN SODIUM 11345370630 No Longer Active Baltazar Childers MD Active ATORVASTATIN CALCIUM 20 MG ORAL TABLET Take 1 tab daily ATORVASTATIN CALCIUM 29436431039 Active Baltazar Childers MD A ctive FUROSEMIDE 40 MG ORAL TABLET Take one by mouth daily FUROSEMIDE 75028282784 Active Baltazar Chiledrs MD Active LISINOPRIL 20 MG ORAL TABLET Take one by mouth daily at bedtime LISINOPRIL 49551838782 No Longer Active Baltazar Childers MD Active ONETOUCH ULTRA BLUE IN VITRO STRIP Test twice a day 07/11/11 GLUCOSE BLOOD 63304257437 No Longer Active Baltazar Childers MD Acti ve TRUEPLUS LANCETS 33G Test twice a day LANCETS 4858824 7990 Active KENDALL Juarez Active TRUEDRAW LANCING DEVICE Test twice a day LANCET DEVICES 99328859958 Active Baltazar Childers MD Active TRUETRACK BLOOD GLUCOSE w/Device KIT Test twice a day BLOOD GLUCOSE MONITORING SUPPL 01733900573 Active Baltazar Childers MD Activ e GABAPENTIN 300 MG ORAL CAPSULE 1 po qd x 2 days, then 1 po BID x 2 days, then 1 po TID GABAPENTIN 86405427941 No Longer Active Baltazar Childers MD Active NAPROXEN 500 MG ORAL TABLET 1 tablet by mouth twice daily NAPROXEN 39648350450 No Longer Active Baltazar Childers MD Active PROAIR HFA 108 (90 Base) MCG/ACT INHALATION AEROSOL SO LUTION 2 puffs four times a day as needed ALBUTEROL SULFATE 67476842837 Active R gilberto Childers MD Active DEPO-TESTOSTERONE 200 MG/ML INTRAMUSCULAR SOLUTION as directed TESTOSTERONE CYPIONATE 35352636360 No Longer Active Baltazar Childers MD Active LIPITOR 20 MG ORAL TABLET Take one by mouth daily in evening ATORVASTATIN CALCIUM 67270464609 No Longer Active Baltazar Childers MD Active CRESTOR 10 MG ORAL TABLET 1 by mouth every day ROSUVASTATIN CALCIUM 23668714839 No Longer Active Baltazar Childers MD Active PHENTERMINE HCL 37.5 MG ORAL TABLET Take one by mouth daily PHENTERMINE HCL 11147574076 No Longer Active Baltazar Childers MD Ac tive TIZANIDINE HCL 4 MG ORAL TABLET 1 daily as needed for muscle spa sm TIZANIDINE HCL 83141174504 No Longer Active Dawna Salazar RN Active [id number] 50-325-40 MG ORAL TABLET 1 fo ur times a day as needed for heacache [id number] 00182610300 Active KENDALL Juarez Active SUMATRIPTAN SUCCINATE 100 MG ORAL TABLET 1 tablet by m outh at onset of migraine as needed SUMATRIPTAN SUCCINATE 05441059081 Active Fanny Hudson MA Active LORATADINE 10 MG ORAL TABLET Take one by mouth daily LORATADINE 63785280424 Active Fanny Hudson MA Active OMEPRAZOLE 20 MG ORAL CAPSULE DELAYED RELEASE Take one by mouth jostin ly OMEPRAZOLE 50146538142 Active Baltazar Childers MD Active HYDROXYZINE HCL 25 MG ORAL TABLET Take one by mouth daily HYDROXYZINE HCL 70399579977 Active Baltazar Childers MD Active ALPRAZOLAM 1 MG ORAL TABLET 1 tablet by mouth daily at bedti me for restless leg ALPRAZOLAM 08279899381 Active Baltazar Childers MD Active METFORMIN HCL 1000 MG ORAL TABLET Take one by mouth twice daily METFORMIN HCL 48055696241 Active Baltazar Childers MD Active TIZANIDINE HCL 4 MG ORAL TABLET 1 daily as needed for muscle spa sm TIZANIDINE HCL 4 MG ORAL TABLET 352515 TIZANIDINE HCL Inactive PHENTERMINE HCL 37.5 MG ORAL TABLET Take one by mouth daily PHENTERMINE HCL 37.5 MG ORAL TABLET 300064 PHENTERMINE HCL Inac tive CRESTOR 10 MG ORAL TABLET 1 by mouth every day CRESTOR 10 MG ORAL TABLET 169795 ROSUVASTATIN CALCIUM Inactive LIPITOR 20 MG ORAL TABLET Take one by mouth daily in evening LIPITOR 20 MG ORAL TABLET 875141 ATORVASTATIN CALCIUM Inactive DEPO-TESTOSTERONE 200 MG/ML INTRAMUSCULAR SOLUTION as directed DEPO-TESTOSTERONE 200 MG/ML INTRAMUSCULAR SOLUTION 6185668 RUFINO TOSTERONE CYPIONATE Inactive NAPROXEN 500 MG ORAL TABLET 1 tablet by mouth twice daily NAPROXEN 500 MG ORAL TABLET 563071 NAPROXEN Inactive GABAPENTIN 300 MG ORAL CAPSULE 1 po qd x 2 days, then 1 po BID x 2 days, then 1 po TID GABAPENTIN 300 MG ORAL CAPSULE 449979 GABAP ENTIN Inactive ONETOUCH ULTRA BLUE IN VITRO STRIP Test twice a day 07/11/11 ONETOUCH ULTRA BLUE IN VITRO STRIP GLUCOSE BLOOD Inact amie NAPROXEN SODIUM 220 MG ORAL TABLET 1 three times a day as needed NAPROXEN SODIUM 220 MG ORAL TABLET 06606086020 NAPROXEN SODI UM Inactive TOUJEO SOLOSTAR 300 UNIT/ML SUBCUTANEOUS SOLUTION PEN- INJECTOR 10 units SC daily TOUJEO SOLOSTAR 300 UNIT/ML SUBCUTANEOUS SOLUTION PEN-INJECTOR INSULIN GLARGINE Inactive SUCRALFATE 1 GM ORAL TABLET 1 four times a day to coat the stoma SUCRALFATE 1 GM ORAL TABLET 585157 SUCRALFATE Inac tive GABAPENTIN 300 MG ORAL CAPSULE 1 three times a day 201 12/03/26 GABAPENTIN 300 MG ORAL CAPSULE 110500 GABAPENTIN Inactive TRAMADOL HCL 50 MG ORAL TABLET 1 twice a day as needed for pain TRAMADOL HCL 50 MG ORAL TABLET 519140 TRAMADOL HCL I nactive ZITHROMAX Z-ISAIAS 250 MG ORAL TABLET Take two tablets to day and then 1 tablet daily for 4 days ZITHROMAX Z-ISAIAS 250 MG ORAL TAB LET 873472 AZITHROMYCIN Inactive Immunizations Vaccine Administration Date Value Standard Floyd cription influenza immunization (Flu Vax) has been administered 07/11 Fluzone Quadrivalent (Flu) 0.5 mL 10Pk Syringe IM influenza virus vaccine, unspecified formulation influenza immunization (Flu Vax) has been administered 05/11 Done according to patient influenza virus vaccine, unspecified for mulation pneumococcal immunization administered Pneumovax 23 [CVX33] pneumococcal polysaccharide vaccine, 23 valent Seasonal influenza vaccine, injectable, containing preservative, for > 3 years old (Afluria, FluLaval, Fluzone, Fluvirin, Fluarix, Agriflu(>= 18 yo)) Fluzone (>3 yrs.) [EUI458] Influenza, seasonal, inject able Seasonal influenza vaccine, injectable, containing preservative, for > 3 years old (Afluria, FluLaval, Fluzone, Fluvirin, Fluarix, Agriflu(>= 18 yo)) Fluzone (>3 yrs.) [UWT161] Influenza, seasonal, inject able Vital Signs Date Name Value Unit Range Description blood pressure, diastolic, second observation 73 m m[Hg] BP [place] blood pressure, diastolic, repeated by physician 73 BP [place] blood pressure, diastolic 76 mm[Hg] BP [place] blood pressure, systolic, second observation 132 mm [Hg] BP sys blood pressure, systolic, repeated by physician 132 BP sys blood pressure, systolic 148 mm[Hg] BP sys height E&M 66.5 [in_us] Bdy height pulse rate 100 /min Heart rate temperature E&M 96.3 [degF] Body temp erature weight E&M 231.50 [lb_av] Weight Measure d blood pressure, diastolic, repeated by physician 74 BP [place]mer[place] blood pressure, diastolic 74 mm[Hg] BP [place] blood pressure, systolic, repeated by physician 134 BP sys blood pressure, systolic 134 mm[Hg] BP sys height E&M 66.5 [in_us] Bdy height pulse rate 90 /min Heart rate temperature E&M 98.6 [degF] Body temp erature weight E&M 232 [lb_av] Weight Measure d blood pressure, diastolic, second observation 84 m m[Hg] BP [place] blood pressure, diastolic, repeated by physician 87 BP [place] blood pressure, diastolic 87 mm[Hg] BP [place] blood pressure, systolic, second observation 164 mm [Hg] BP sys blood pressure, systolic, repeated by physician 176 BP sys blood pressure, systolic 176 mm[Hg] BP sys height E&M 66.5 [in_us] Bdy height pulse rate 85 /min Heart rate temperature E&M 98.6 [degF] Body temp erature weight E&M 228.50 [lb_av] Weight Measure d blood pressure, diastolic, repeated by physician 68 BP salmeron blood pressure, diastolic 68 mm[Hg] BP [place] blood pressure, systolic, repeated by physician 120 BP sys blood pressure, systolic 120 mm[Hg] BP sys height E&M 66.5 [in_us] Bdy height pulse rate 82 /min Heart rate temperature E&M 98.2 [degF] Body temp erature weight E&M 229.60 [lb_av] Weight Measure d blood pressure, diastolic, repeated by physician 86 BP sal[place] blood pressure, diastolic 86 mm[Hg] BP [place] blood pressure, systolic, repeated by physician 128 BP sys blood pressure, systolic 128 mm[Hg] BP sys height E&M 66.5 [in_us] Bdy height pulse rate 74 /min Heart rate temperature E&M 98.1 [degF] Body temp erature weight E&M 236 [lb_av] Weight Measure d blood pressure, diastolic, repeated by physician 84 BP salmeron blood pressure, diastolic 84 mm[Hg] BP [place] blood pressure, systolic, repeated by physician 137 BP sys blood pressure, systolic 137 mm[Hg] BP sys height E&M 66.5 [in_us] Bdy height pulse rate 101 /min Heart rate temperature E&M 98.0 [degF] Body temp erature weight E&M 232 [lb_av] Weight Measure d blood pressure, diastolic, repeated by physician 75 BP sal[place] blood pressure, diastolic 75 mm[Hg] BP [place] blood pressure, systolic, repeated by physician 106 BP sys blood pressure, systolic 106 mm[Hg] BP sys height E&M 66.5 [in_us] Bdy height pulse rate 77 /min Heart rate temperature E&M 97.5 [degF] Body temp erature weight E&M 228.50 [lb_av] Weight Measure d Diagnostic Results Date Name Value Unit Range Description Lab Report: Basic Metabolic Panel - Chem istry sodium, serum 136 mmol/L 546-322 6161/06/04 potassium, serum 4.9 mmol/L 3.5-5.2 chloride, serum 97 mmol/L 98-107 carbon dioxide, venous blood 35.3 mmol/L 21.0-32 .0 blood glucose 239 mg/dL 65-95 calcium, serum 10.6 mg/dL 8.5-10.1 urea nitrogen, blood 31 mg/dL 7-18 creatinine, serum 2.33 mg/dL 0.60-1.30 Estimated Glomerular Filtration Rate (calc) 23 (?) mL/min/1.73m2 = OR > 60 mL/min sodium, serum 141 mmol/L 224-965 7964/07/09 potassium, serum 4.9 mmol/L 3.5-5.2 chloride, serum 103 mmol/L 98-107 carbon dioxide, venous blood 35.1 mmol/L 21.0-32 .0 blood glucose 203 mg/dL 65-95 calcium, serum 9.8 mg/dL 8.5-10.1 urea nitrogen, blood 13 mg/dL 7-18 creatinine, serum 1.76 mg/dL 0.60-1.30 Estimated Glomerular Filtration Rate (calc) 31 (?) mL/min/1.73m2 = OR > 60 mL/min Lab Report: Basic Metabolic Panel, HGBA1 C - Chemistry sodium, serum 137 mmol/L 402-696 7218/10/17 potassium, serum 4.9 mmol/L 3.5-5.2 chloride, serum 98 mmol/L 98-107 carbon dioxide, venous blood 34.1 mmol/L 21.0-32 .0 blood glucose 262 mg/dL 65-95 calcium, serum 9.7 mg/dL 8.5-10.1 urea nitrogen, blood 31 mg/dL 7-18 creatinine, serum 2.22 mg/dL 0.60-1.30 Estimated Glomerular Filtration Rate (calc) 24 (?) mL/min/1.73m2 = OR > 60 mL/min hemoglobin A1C, blood, as % of total hemoglobin 8.6 % 4.3-6.0 Lab Report: HGBA1C - Chemistry hemoglobin A1C, blood, as % of total hemoglobin 8.0 % 4.3-6.0 Lab Report: HGBA1C, MICROALB/CREAT W/RAT IO, Thyroid Stimulating Hormone ... - Chemistry hemoglobin A1C, blood, as % of total hemoglobin 9.0 % 4.3-6.0 TSH 1.80 m[iU]/mL 0.36-3.74 Lab Report: HGBA1C, MICROALB/CREAT W/RAT IO, Thyroid Stimulating Hormone ... - Hematology leukocyte count, blood 9.3 10^3/MM^3 10*3/mm3 4.6-10.2 erythrocyte (RBC) count 4.22 10^6/MM^3 10*6/mm3 3.80-5.8 0 hemoglobin, blood 11.5 g/dL 12.0-16.0 hematocrit, blood 36.9 % 37.0-47.0 mean corpuscular volume, RBC 87 fL 80-97 mean corpuscular hemoglobin, RBC 27.2 pg 27. 0-31.2 mean corpuscular hemoglobin concentration, RBC 31.1 G/DL % 31.8-35.4 red blood cell distribution width 14.4 % 11 .6-14.8 platelet count 333 10^3/MM^3 10*3/mm3 142-424 Lab Report: HGBA1C, MICROALB/CREAT W/RAT IO, Thyroid Stimulating Hormone ... - Lab microalbumin, urine 30 0-19 Lab Report: HGBA1C, MICROALB/CREAT W/RAT IO, Thyroid Stimulating Hormone ... - Urinalysis microalbumin/total urine volume >30 Abnormal mg/g mg/L 0-29 Lab Report: Lipid Panel, HGBA1C, Basic M etabolic Panel - Chemistry cholesterol, serum 156 mg/dL 050-801 1172/05/20 triglyceride, serum, fasting 283 mg/dL 30-200 HDL cholesterol, serum 53 mg/dL 32-60 LDL cholesterol, serum 46 mg/dL 0-130 hemoglobin A1C, blood, as % of total hemoglobin 8.7 % 4.3-6.0 sodium, serum 136 mmol/L 736-727 4922/05/20 potassium, serum 5.0 mmol/L 3.5-5.2 chloride, serum 101 mmol/L 98-107 carbon dioxide, venous blood 29.9 mmol/L 21.0-32 .0 blood glucose 313 mg/dL 65-95 calcium, serum 9.8 mg/dL 8.5-10.1 urea nitrogen, blood 24 mg/dL 7-18 creatinine, serum 1.53 mg/dL 0.60-1.30 Estimated Glomerular Filtration Rate (calc) 37 (?) mL/min/1.73m2 = OR > 60 mL/min Office Visit: pap., tumor - Toxicology drug screen, urine, qualitative Ordered Encounters Code Encounter Date Provider Facility CPT-89176 [id number] Vst-Est Level IV 16:19:48 CDT Charlie Childers MD [facility] CPT-56939 [id number] Vst-Est Level IV 14:22:53 LUMP RECEIVER Charlie Childers MD [facility] CPT-88746 [id number] Vst-Est Level IV 15:48:51 LUMP RECEIVER Charlie Childers MD [facility] CPT-29622 [id number] Vst-Est Level V 14:28:39 CDT Aneudy Childers MD [facility] CPT-86128 [id number] Vst-Est Level IV 15:03:32 CDT Charlie Childers MD [facility] CPT-47277 [id number] Vst-Est Level III 15:51:57 CDT Baltazar Childers MD [facility] CPT-64487 [id number] Vst-Est Level IV 15:14:58 CDT Charlie Childers MD [facility] CPT-19637 [id number] Vst-Est Level IV 15:12:52 LUMP RECEIVER Charlie Childers MD [facility] CPT-70147 [id number] Vst-Est Level IV 15:30:55 LUMP RECEIVER Charlie Childers MD [facility] CPT-10518 [id number] Vst-Est Level IV 13:49:06 C DT Ann Martinez [facility] CPT-82375 Level 4 Est. Patient 17:26:08 CDT [place] [facility] [place] CPT-51388 [id number] Vst-Est Level V 14:26:27 CDT Aneudy Childers MD [facility] CPT-99476 Level 4 Est. Patient 17:05:37 CDT Baltazar Childers MD [facility] CPT-95423 Level 4 Est. Patient 16:21:19 LUMP RECEIVER Baltazar Childers MD [facility] CPT-26137 Level 4 Est. Patient 12:25:11 CDT Baltazar Childers MD [facility] CPT-09190 Level 4 Est. Patient 14:22:31 CDT Baltazar Childers MD [facility] CPT-57021 Level 4 Est. Patient 15:44:38 CDT Shonna Parker APRN [facility] CPT-87564 Level 4 Est. Patient 11:34:17 CDT Baltazar Childers MD [facility] CPT-85950 Level 3 Est. Patient 16:40:40 CDT Baltazar Childers MD [facility] CPT-20606 Level 4 Est. Patient 10:41:24 CDT Baltazar Childers MD [facility] CPT-09081 Level 4 Est. Patient 16:01:48 CDT Baltazar Childers MD [facility] CPT-31567 Level 4 Est. Patient 16:54:07 LUMP RECEIVER Baltazar Childers MD [facility] CPT-03131 Level 4 Est. Patient 15:42:12 CDT Baltazar Childers MD [facility] CPT-30181 Level 4 Est. Patient 11:29:55 CDT Baltazar Childers MD [facility] CPT-03937 Level 4 Est. Patient 14:15:19 CDT Baltazar Childers MD [facility] CPT-22774 Level 4 Est. Patient 12:20:13 CDT Baltazar Childers MD [facility] CPT-14082 Level 4 Est. Patient 14:52:45 LUMP RECEIVER Baltazar Childers MD [facility] CPT-55821 Level 4 Est. Patient 14:18:34 LUMP RECEIVER Baltazar Childers MD [facility] CPT-80502 Level 4 Est. Patient 15:18:29 CDT Baltazar Childers MD [facility] CPT-82153 Level 3 Est. Patient 12:45:34 CDT Baltazar Childers MD [facility] CPT-18056 Level 3 Est. Patient 10:10:11 CDT Baltazar Childers MD [facility] CPT-76760 Level 3 Est. Patient 14:07:50 CDT Baltazar Childers MD [facility] CPT-19934 Level 4 Est. Patient 12:26:10 LUMP RECEIVER Baltazar Childers MD [facility] CPT-83110 Level 4 Est. Patient 14:45:38 CDT Baltazar Childers MD [facility] CPT-71147 Level 4 New Patient 12:30:48 CDT Baltazar hinton MD [facility] Procedures Code Procedure Name Date Entry Date Standard Desc ription CPT-33231 Venipuncture Draw Fee 16:23:32 CDT CPT-TN2595B (3066F) Documentation of treatment for n ephropathy 16:19:46 CDT CPT-OR3392S (3060F) Positive microalbumi abimael test result documented and reviewed 16:19:46 CDT CPT-000 Give Appropriate Flu Vaccine 14:07:28 LUMP RECEIVER 2 CPT-47742 Venipuncture Draw Fee 16:24:55 LUMP RECEIVER CPT-40124 22844 - Immun Admin 1 vac 14:54:52 LUMP RECEIVER 2019 CPT-84309 Fluzone Quadrivalent (Flu) 0.5 mL 10Pk S yringe IM 14:54:52 LUMP RECEIVER CPT-YV3116J (4013F) Statin therapy prescribed or cur rently being taken 14:07:28 LUMP RECEIVER CPT-ZB4725U (3066F) Documentation of treatment for n ephropathy 14:07:28 LUMP RECEIVER CPT-36293 Venipuncture Draw Fee 17:47:23 CDT CPT-72662 4M Drug Screen cup test, Multi-panel, urine 2018 14:28:39 CDT CPT-12498 Venipuncture Draw Fee 15:19:00 CDT CPT-000 Give Appropriate Flu Vaccine 12:25:14 CDT 2 CPT-63631 First Vx - Ix admin via ID I M or jet injects without counseling by physician 13:08:59 CDT CPT-87617 Fluzone Quadrivalent Intramuscular Suspe nsion 0.5 ML 13:08:59 CDT CPT-42122 Venipuncture Draw Fee 12:04:12 CDT CPT-69073 Lipid - LAB USE ONLY 17:39:15 LUMP RECEIVER 9 CPT-96384 HGBA1C - LAB USE ONLY 17:39:15 LUMP RECEIVER CPT-09671 CMP - LAB USE ONLY 17:39:14 LUMP RECEIVER CPT-37557 Venipuncture Draw Fee 17:39:14 LUMP RECEIVER CPT-71955 First Vx - Ix admin via ID I M or jet injects without counseling by physician 16:55:17 LUMP RECEIVER CPT-47892 Fluzone Quadrivalent Intramuscular Suspe nsion 0.5 ML 16:55:17 LUMP RECEIVER CPT-46360 Renal Panel - LAB USE ONLY 17:39:20 CDT 201 10/31/07 CPT-22584 CBC - LAB USE ONLY 17:39:20 CDT CPT-58990 Venipuncture Draw Fee 17:39:20 CDT CPT-62627 Venipuncture Draw Fee 14:33:30 CDT CPT-39718 Renal Panel - LAB USE ONLY 14:33:30 CDT 201 10/31/07 CPT-73401 CBC - LAB USE ONLY 14:33:29 CDT CPT-72926 Venipuncture Draw Fee 14:50:21 LUMP RECEIVER CPT-18884 Immunization Single Admin 17:35:35 CDT 2014 CPT-65097 Fluzone Quadrivalent preservative free ( >=3yrs.) 17:35:35 CDT CPT-51042 Venipuncture Draw Fee 12:10:27 LUMP RECEIVER CPT-04540 Fluzone Quadrivalent Intramuscular Suspe nsion 0.5 ML 10:49:13 CDT CPT-59995 First Vx Component - Ix admi n via ID IM or jet inj without physician counseling 15:17:19 LUMP RECEIVER CPT-22752 Pneumovax 23 15:17:19 LUMP RECEIVER CPT-53391 Pneumovax 14:52:45 LUMP RECEIVER CPT-01118 Venipuncture Draw Fee 14:06:30 LUMP RECEIVER CPT-000 Give Appropriate Flu Vaccine 14:18:34 LUMP RECEIVER 2 CPT-19140 Administration single or combination vac cine inc oral 14:46:00 LUMP RECEIVER CPT-98404 Influenza split virus > age 3 14:46:00 LUMP RECEIVER CPT-OV Office Visit 19:13:16 CDT CPT-96312 Zostavax 18:41:56 CDT CPT-19628 Administration single or combination vac cine inc oral 12:56:39 CDT CPT-28996 Zoster Vaccine (Zostavax) 12:56:39 CDT 2012 CPT-79636 Venipuncture Draw Fee 10:58:57 CDT CPT-56322 Sono pelvis non OB uterus ovaries cervix 17:45:04 CDT CPT-29309 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
--- OUTSIDE RECORDS SUMMARY | 2019-10-27 11:26 | XMS REPORT | Clinical Summary ---
Author Author Admin, Elba Lance [facility] Address Unknown Phone Unavailable Allergies, Adverse Reactions, [...] Morbid obesity due to excess calories 278.01 [facility] t Baltazar Childers MD Morbid obesity Obesity Class II (BMI 35-39.9) 278.01 Refinement 10/26 Baltazar Childers MD Morbid obesity Morbid obesity due to excess calories 278.01 [facility] t Baltazar Childers MD Morbid obesity Obesity Class II (BMI 35-39.9) 278.01 Refinement 01/19 Baltazar Childers MD Morbid obesity Morbid obesity due to excess calories 278.01 [facility] t Baltazar Childers MD Morbid obesity [...] of kidney and ureter CAD 414.00 Active Gladsy Arce LRT Co ronary atherosclerosis of unspecified type of vessel, [place] or graft OTH NONSPC ABN FINDNG RAD&OTH [...] 1 tab every 6-8 hours PRN HYDROCODONE-ACETAMINOPHEN 61083792575 Active Baltazar silverman MD Active SUCRALFATE 1 GM TABS 1 four times a day 1 hour before meals and at bedtime SUCRALFATE 51312882525 Active Fanny Hudson MA Active INSULIN SYRINGE 27G X 1/2" 0.5 ML use 1 as needed. INSULIN SYRINGE- NEEDLE U-100 99593857512 Active Fanny Hudson MA Active MAGNESIUM OXIDE 400 MG ORAL CAPSULE 1 po bid MAGNESIUM OXIDE 33811885548 Active Fadumo Ruiz Active HUMALOG 100 UNIT/ML SUBCUTANEOUS SOLUTION Take 10 units with every meal INSULIN LISPRO 13782743849 Active Baltazar Childers MD Active NOVOLOG 100 UNIT/ML SUBCUTANEOUS SOLUTION 5 units with each meal. 2 INSULIN ASPART 89721384576 No Longer Active Fanny Hudson MA Activ e ONGLYZA 2.5 MG TABS TAKE 1 TABLET BY MOUTH EVERY DAY FOR DIABETES 2 SAXAGLIPTIN HCL 20090804692 Active Baltazar Childers MD Active GLIPIZIDE 10MG TABLETS TAKE 2 TABLETS BY MOUTH TWICE DAILY GLIPIZIDE 30785296699 Active Baltazar Childers MD Active TRUE METRIX B/G TEST STRIPS 25'S TEST BLOOD SUGAR TWICE DAILY 03/02 GLUCOSE BLOOD 52321476677 Active KENDALL Juarez Active LEVOTHYROXINE 0.112MG (112MCG) TABS TAKE 1 TABLET BY MOUTH EVERY DAY LEVOTHYROXINE SODIUM 29672150016 Active Baltazar Childers MD Active AMLODIPINE BESYLATE 5MG TABLETS TAKE 1 TABLET BY MOUTH EVERY DAY FOR HYPERTENSION AMLODIPINE BESYLATE 60354869221 Active Ro yvan Childers MD Active LANTUS SOLOSTAR 100 UNIT/ML SUBCUTANEOUS SOLUTION PEN- INJECTOR 20 units am and 13 units at night INSULIN GLARGINE 74313170815 Active Baltazar Childers MD Active TRAMADOL HCL 50 MG ORAL TABLET 1 twice a day as needed for pain TRAMADOL HCL 97845449527 No Longer Active Baltazar Childers MD Active ROBAXIN 500 MG ORAL TABLET Take 1.5 (one and one half) tabs once daily METHOCARBAMOL 88785135642 Active Baltazar Childers MD Active TRUE METRIX AIR GLUCOSE METER DEVICE Use as directed BLOOD GLUCOSE MONITORING SUPPL 29192241325 Active Baltazar Childers MD Activ e NORTRIPTYLINE HCL 50 MG ORAL CAPSULE 1 twice a day for neuropathy 2 NORTRIPTYLINE HCL 92214047705 Active Baltazar Childers MD Acti ve ASPIRIN 81 MG TBEC Take one (1) tablet by mouth daily ASPIRIN 06900055707 Active Baltazar Childers MD Active GABAPENTIN 300 MG ORAL CAPSULE 1 three times a day 201 12/03/26 GABAPENTIN 30852756755 No Longer Active Baltazar Childers MD Activ e LISINOPRIL 20 MG ORAL TABLET 1 tablet by mouth daily at night 2016 LISINOPRIL 33617596794 Active Baltazar Childers MD Active ZITHROMAX Z-ISAIAS 250 MG ORAL TABLET Take two tablets to day and then 1 tablet daily for 4 days AZITHROMYCIN 98223458639 No Longer A ctive Baltazar Childers MD Active SUCRALFATE 1 GM ORAL TABLET 1 four times a day to coat the stoma ch SUCRALFATE 24572601109 No Longer Active Baltazar Childers MD Active PEN NEEDLES 31G X 6 MM use 1 daily INSULIN PEN NE EDLE 62352345188 Active KENDALL Juarez Active TOUJEO SOLOSTAR 300 UNIT/ML SUBCUTANEOUS SOLUTION PEN- INJECTOR 10 units SC daily INSULIN GLARGINE 01845380796 No Longer Active Rola ARGUETA Active NAPROXEN SODIUM 220 MG ORAL TABLET 1 three times a day as needed NAPROXEN SODIUM 52328006148 No Longer Active Baltazar Childers MD Active ATORVASTATIN CALCIUM 20 MG ORAL TABLET Take 1 tab daily ATORVASTATIN CALCIUM 58711208420 Active Baltazar Childers MD A ctive FUROSEMIDE 40 MG ORAL TABLET Take one by mouth daily FUROSEMIDE 17432080437 Active Baltazar Childers MD Active LISINOPRIL 20 MG ORAL TABLET Take one by mouth daily at bedtime LISINOPRIL 10253066530 No Longer Active Baltazar Childers MD Active ONETOUCH ULTRA BLUE IN VITRO STRIP Test twice a day 07/11/11 GLUCOSE BLOOD 40673362532 No Longer Active Baltazar Childers MD Acti ve TRUEPLUS LANCETS 33G Test twice a day LANCETS 1929241 5517 Active KENDALL Juarez Active TRUEDRAW LANCING DEVICE Test twice a day LANCET DEVICES 54739780960 Active Baltazar Childers MD Active TRUETRACK BLOOD GLUCOSE w/Device KIT Test twice a day BLOOD GLUCOSE MONITORING SUPPL 23985809334 Active Baltazar Childers MD Activ e GABAPENTIN 300 MG ORAL CAPSULE 1 po qd x 2 days, then 1 po BID x 2 days, then 1 po TID GABAPENTIN 02813922334 No Longer Active Baltazar Childers MD Active NAPROXEN 500 MG ORAL TABLET 1 tablet by mouth twice daily NAPROXEN 84190419733 No Longer Active Baltazar Childers MD Active PROAIR HFA 108 (90 Base) MCG/ACT INHALATION AEROSOL SO LUTION 2 puffs four times a day as needed ALBUTEROL SULFATE 91186479923 Active R gilberto Childers MD Active DEPO-TESTOSTERONE 200 MG/ML INTRAMUSCULAR SOLUTION as directed TESTOSTERONE CYPIONATE 81694465556 No Longer Active Baltazar Childers MD Active LIPITOR 20 MG ORAL TABLET Take one by mouth daily in evening ATORVASTATIN CALCIUM 27742457158 No Longer Active Baltazar Childers MD Active CRESTOR 10 MG ORAL TABLET 1 by mouth every day ROSUVASTATIN CALCIUM 83785234509 No Longer Active Baltazar Childers MD Active PHENTERMINE HCL 37.5 MG ORAL TABLET Take one by mouth daily PHENTERMINE HCL 22407826979 No Longer Active Baltazar Childers MD Ac tive TIZANIDINE HCL 4 MG ORAL TABLET 1 daily as needed for muscle spa sm TIZANIDINE HCL 37087177193 No Longer Active Dawna Salazar RN Active [id number] 50-325-40 MG ORAL TABLET 1 fo ur times a day as needed for heacache [id number] 81874493589 Active KENDALL Juarez Active SUMATRIPTAN SUCCINATE 100 MG ORAL TABLET 1 tablet by m outh at onset of migraine as needed SUMATRIPTAN SUCCINATE 84336593035 Active Fanny Hudson MA Active LORATADINE 10 MG ORAL TABLET Take one by mouth daily LORATADINE 44347473207 Active Fanny Hudson MA Active OMEPRAZOLE 20 MG ORAL CAPSULE DELAYED RELEASE Take one by mouth jostin ly OMEPRAZOLE 33694755301 Active Baltazar Childers MD Active HYDROXYZINE HCL 25 MG ORAL TABLET Take one by mouth daily HYDROXYZINE HCL 84605608835 Active Baltazar Childers MD Active ALPRAZOLAM 1 MG ORAL TABLET 1 tablet by mouth daily at bedti me for restless leg ALPRAZOLAM 24488524396 Active Baltazar Childers MD Active METFORMIN HCL 1000 MG ORAL TABLET Take one by mouth twice daily METFORMIN HCL 95284280150 Active Baltazar Childers MD Active TIZANIDINE HCL 4 MG ORAL TABLET 1 daily as needed for muscle spa sm TIZANIDINE HCL 4 MG ORAL TABLET 904108 TIZANIDINE HCL Inactive PHENTERMINE HCL 37.5 MG ORAL TABLET Take one by mouth daily PHENTERMINE HCL 37.5 MG ORAL TABLET 656518 PHENTERMINE HCL Inac tive CRESTOR 10 MG ORAL TABLET 1 by mouth every day CRESTOR 10 MG ORAL TABLET 270709 ROSUVASTATIN CALCIUM Inactive LIPITOR 20 MG ORAL TABLET Take one by mouth daily in evening LIPITOR 20 MG ORAL TABLET 205536 ATORVASTATIN CALCIUM Inactive DEPO-TESTOSTERONE 200 MG/ML INTRAMUSCULAR SOLUTION as directed DEPO-TESTOSTERONE 200 MG/ML INTRAMUSCULAR SOLUTION 5339884 RUFINO TOSTERONE CYPIONATE Inactive NAPROXEN 500 MG ORAL TABLET 1 tablet by mouth twice daily NAPROXEN 500 MG ORAL TABLET 694806 NAPROXEN Inactive GABAPENTIN 300 MG ORAL CAPSULE 1 po qd x 2 days, then 1 po BID x 2 days, then 1 po TID GABAPENTIN 300 MG ORAL CAPSULE 520340 GABAP ENTIN Inactive ONETOUCH ULTRA BLUE IN VITRO STRIP Test twice a day 07/11/11 ONETOUCH ULTRA BLUE IN VITRO STRIP GLUCOSE BLOOD Inact amie NAPROXEN SODIUM 220 MG ORAL TABLET 1 three times a day as needed NAPROXEN SODIUM 220 MG ORAL TABLET 06698976976 NAPROXEN SODI UM Inactive TOUJEO SOLOSTAR 300 UNIT/ML SUBCUTANEOUS SOLUTION PEN- INJECTOR 10 units SC daily TOUJEO SOLOSTAR 300 UNIT/ML SUBCUTANEOUS SOLUTION PEN-INJECTOR INSULIN GLARGINE Inactive SUCRALFATE 1 GM ORAL TABLET 1 four times a day to coat the stoma SUCRALFATE 1 GM ORAL TABLET 659409 SUCRALFATE Inac tive GABAPENTIN 300 MG ORAL CAPSULE 1 three times a day 201 12/03/26 GABAPENTIN 300 MG ORAL CAPSULE 991609 GABAPENTIN Inactive TRAMADOL HCL 50 MG ORAL TABLET 1 twice a day as needed for pain TRAMADOL HCL 50 MG ORAL TABLET 097363 TRAMADOL HCL I nactive ZITHROMAX Z-ISAIAS 250 MG ORAL TABLET Take two tablets to day and then 1 tablet daily for 4 days ZITHROMAX Z-ISAIAS 250 MG ORAL TAB LET 302378 AZITHROMYCIN Inactive Immunizations Vaccine Administration Date Value [...] Fluarix, Agriflu(>= 18 yo)) Fluzone (>3 yrs.) [[id number]] Influenza, seasonal, inject able Seasonal influenza vaccine, injectable, containing preservative, for > 3 years old (Afluria, FluLaval, Fluzone, Fluvirin, Fluarix, Agriflu(>= 18 yo)) Fluzone (>3 yrs.) [[id number]] Influenza, seasonal, inject able Vital Signs Date [...] - Chem istry sodium, serum 136 mmol/L 644-044 0887/06/04 potassium, serum 4.9 mmol/L 3.5-5.2 chloride, serum 97 mmol/L 98-107 carbon dioxide, venous blood 35.3 mmol/L 21.0-32 .0 blood glucose 239 mg/dL 65-95 calcium, serum 10.6 mg/dL 8.5-10.1 urea nitrogen, blood 31 mg/dL 7-18 creatinine, serum 2.33 mg/dL 0.60-1.30 Estimated Glomerular Filtration Rate (calc) 23 (?) mL/min/1.73m2 = OR > 60 mL/min sodium, serum 141 mmol/L 202-759 2743/07/09 potassium, serum 4.9 mmol/L 3.5-5.2 chloride, serum [...] C - Chemistry sodium, serum 137 mmol/L 218-287 5390/10/17 potassium, serum 4.9 mmol/L 3.5-5.2 chloride, serum [...] Panel - Chemistry cholesterol, serum 156 mg/dL 024-034 3369/05/20 triglyceride, serum, fasting 283 mg/dL 30-200 HDL cholesterol, serum 53 mg/dL 32-60 LDL cholesterol, serum 46 mg/dL 0-130 hemoglobin A1C, blood, as % of total hemoglobin 8.7 % 4.3-6.0 sodium, serum 136 mmol/L 566-226 0552/05/20 potassium, serum 5.0 mmol/L 3.5-5.2 chloride, serum [...] Ordered Encounters Code Encounter Date Provider Facility CPT-48157 [id number] Vst-Est Level IV 16:19:48 CDT Charlie Childers MD [facility] CPT-13981 [id number] Vst-Est Level IV 14:22:53 [employer] Charlie Childers MD [facility] CPT-50364 [id number] Vst-Est Level IV 15:48:51 [employer] Charlie Childers MD [facility] CPT-56603 73928-Aaa Vst-Est Level V 14:28:39 CDT Aneudy Childers MD [facility] CPT-93159 81463-Xbm Vst-Est Level IV 15:03:32 CDT Charlie Childers MD [facility] CPT-39129 81632-Vqs Vst-Est Level III 15:51:57 CDT Baltazar Childers MD [facility] CPT-04236 84648-Tyw Vst-Est Level IV 15:14:58 CDT Charlie Childers MD [facility] CPT-01444 08002-Qms Vst-Est Level IV 15:12:52 [employer] Charlie Childers MD [facility] CPT-36417 83166-Wxb Vst-Est Level IV 15:30:55 [employer] Charlie Childers MD [facility] CPT-85460 48364-Avy Vst-Est Level IV 13:49:06 C DT [facility] CPT-94911 Level 4 Est. Patient 17:26:08 [facility]-91554 85399-Bsg Vst-Est Level V 14:26:27 CDT Aneudy Childers MD [facility] CPT-67129 Level 4 Est. Patient 17:05:37 CDT Baltazar Childers MD [facility] CPT-13590 Level 4 Est. Patient 16:21:19 [employer] Baltazar Childers MD [facility] CPT-32900 Level 4 Est. Patient 12:25:11 CDT Baltazar Childers MD [facility] CPT-73905 Level 4 Est. Patient 14:22:31 CDT Baltazar Childers MD [facility] CPT-50906 Level 4 Est. Patient 15:44:38 CDT Shonna Parker APRN [facility] CPT-48276 Level 4 Est. Patient 11:34:17 CDT Baltazar Childers MD [facility] CPT-51991 Level 3 Est. Patient 16:40:40 CDT Baltazar Childers MD [facility] CPT-83182 Level 4 Est. Patient 10:41:24 CDT Baltazar Childers MD [facility] CPT-52779 Level 4 Est. Patient 16:01:48 CDT Baltazar Childers MD [facility] CPT-03840 Level 4 Est. Patient 16:54:07 [employer] Baltazar Childers MD [facility] CPT-52302 Level 4 Est. Patient 15:42:12 CDT Baltazar Childers MD [facility] CPT-85559 Level 4 Est. Patient 11:29:55 CDT Baltazar Childers MD [facility] CPT-53750 Level 4 Est. Patient 14:15:19 CDT Baltazar Childers MD [facility] CPT-67086 Level 4 Est. Patient 12:20:13 CDT Baltazar Childers MD [facility] CPT-19257 Level 4 Est. Patient 14:52:45 [employer] Baltazar Childers MD [facility] CPT-71787 Level 4 Est. Patient 14:18:34 [employer] Baltazar Childers MD [facility] CPT-31903 Level 4 Est. Patient 15:18:29 CDT Baltazar Childers MD [facility] CPT-24749 Level 3 Est. Patient 12:45:34 CDT Baltazar Childers MD [facility] CPT-72208 Level 3 Est. Patient 10:10:11 CDT Baltazar Childers MD [facility] CPT-67715 Level 3 Est. Patient 14:07:50 CDT Baltazar Childers MD [facility] CPT-30531 Level 4 Est. Patient 12:26:10 [employer] Baltazar Childers MD [facility] CPT-53947 Level 4 Est. Patient 14:45:38 CDT Baltazar Childers MD [facility] CPT-17562 Level 4 New Patient 12:30:48 CDT Baltazar hinton MD [facility] Procedures Code Procedure Name Date Entry Date Standard Desc ription CPT-47178 Venipuncture Draw Fee 16:23:32 CDT CPT-AH5896F (3066F) Documentation of treatment for n ephropathy 16:19:46 CDT CPT-JN9925S (3060F) Positive microalbumi abimael test result documented and reviewed 16:19:46 CDT CPT-000 Give Appropriate Flu Vaccine 14:07:28 [employer] 2 CPT-39259 Venipuncture Draw Fee 16:24:55 [employer] CPT-30095 16997 - Immun Admin 1 vac 14:54:52 [employer] 2019 CPT-33975 Fluzone Quadrivalent (Flu) 0.5 mL 10Pk S yringe IM 14:54:52 [employer] CPT-VN5072W (4013F) Statin therapy prescribed or cur rently being taken 14:07:28 [employer] CPT-WV0337P (3066F) Documentation of treatment for n ephropathy 14:07:28 [employer] CPT-07359 Venipuncture Draw Fee 17:47:23 CDT CPT-42273 4M Drug Screen cup test, Multi-panel, urine 2018 14:28:39 CDT CPT-20685 Venipuncture Draw Fee 15:19:00 CDT CPT-000 Give Appropriate Flu Vaccine 12:25:14 CDT 2 CPT-43319 First Vx - Ix admin via ID I M or jet injects without counseling by physician 13:08:59 CDT CPT-19210 Fluzone Quadrivalent Intramuscular Suspe nsion 0.5 ML 13:08:59 CDT CPT-33519 Venipuncture Draw Fee 12:04:12 CDT CPT-51705 Lipid - LAB USE ONLY 17:39:15 [employer] 9 CPT-52989 HGBA1C - LAB USE ONLY 17:39:15 [employer] CPT-36986 CMP - LAB USE ONLY 17:39:14 [employer] CPT-54641 Venipuncture Draw Fee 17:39:14 [employer] CPT-14838 First Vx - Ix admin via ID I M or jet injects without counseling by physician 16:55:17 [employer] CPT-19971 Fluzone Quadrivalent Intramuscular Suspe nsion 0.5 ML 16:55:17 [employer] CPT-60986 Renal Panel - LAB USE ONLY 17:39:20 CDT 201 10/31/07 CPT-72333 CBC - LAB USE ONLY 17:39:20 CDT CPT-90140 Venipuncture Draw Fee 17:39:20 CDT CPT-48718 Venipuncture Draw Fee 14:33:30 CDT CPT-06309 Renal Panel - LAB USE ONLY 14:33:30 CDT 201 10/31/07 CPT-14341 CBC - LAB USE ONLY 14:33:29 CDT CPT-99033 Venipuncture Draw Fee 14:50:21 [employer] CPT-20904 Immunization Single Admin 17:35:35 CDT 2014 CPT-19511 Fluzone Quadrivalent preservative free ( >=3yrs.) 17:35:35 CDT CPT-44665 Venipuncture Draw Fee 12:10:27 [employer] CPT-29812 Fluzone Quadrivalent Intramuscular Suspe nsion 0.5 ML 10:49:13 CDT CPT-27574 First Vx Component - Ix admi n via ID IM or jet inj without physician counseling 15:17:19 [employer] CPT-00910 Pneumovax 23 15:17:19 [employer] CPT-25596 Pneumovax 14:52:45 [employer] CPT-45160 Venipuncture Draw Fee 14:06:30 [employer] CPT-000 Give Appropriate Flu Vaccine 14:18:34 [employer] 2 CPT-58805 Administration single or combination vac cine inc oral 14:46:00 [employer] CPT-47685 Influenza split virus > age 3 14:46:00 [employer] CPT-OV Office Visit 19:13:16 CDT CPT-66975 Zostavax 18:41:56 CDT CPT-70776 Administration single or combination vac cine inc oral 12:56:39 CDT CPT-17372 Zoster Vaccine (Zostavax) 12:56:39 CDT 2012 CPT-88908 Venipuncture Draw Fee 10:58:57 CDT CPT-90291 Sono pelvis non OB uterus ovaries cervix 17:45:04 CDT CPT-29030 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
--- OUTSIDE RECORDS SUMMARY | 2019-10-27 11:26 | XMS REPORT | Clinical Summary ---
Author Author Admin, [facility] Address Unknown Phone Unavailable Allergies, Adverse [...] Morbid obesity due to excess calories 278.01 [facility] t Baltazar Childers MD Morbid obesity Obesity Class II (BMI 35-39.9) 278.01 Refinement 10/26 Baltazar Childers MD Morbid obesity Morbid obesity due to excess calories 278.01 [facility] t Baltazar Childers MD Morbid obesity Obesity Class II (BMI 35-39.9) 278.01 Refinement 01/19 Baltazar Childers MD Morbid obesity Morbid obesity due to excess calories 278.01 [facility] t Baltazar Childers MD Morbid obesity [...] ronary atherosclerosis of unspecified type of vessel, [place] or graft OTH NONSPC ABN FINDNG RAD&OTH [...] 1 tab every 6-8 hours PRN HYDROCODONE-ACETAMINOPHEN 63471253025 Active Baltazar silverman MD Active SUCRALFATE 1 GM TABS 1 four times a day 1 hour before meals and at bedtime SUCRALFATE 74567143109 Active Fanny Hudson MA Active INSULIN SYRINGE 27G X 1/2" 0.5 ML use 1 as needed. INSULIN SYRINGE- NEEDLE U-100 01204151104 Active Fanny Hudson MA Active MAGNESIUM OXIDE 400 MG ORAL CAPSULE 1 po bid MAGNESIUM OXIDE 51716473354 Active Fadumo Ruiz Active HUMALOG 100 UNIT/ML SUBCUTANEOUS SOLUTION Take 10 units with every meal INSULIN LISPRO 89258612912 Active Baltazar Childers MD Active NOVOLOG 100 UNIT/ML SUBCUTANEOUS SOLUTION 5 units with each meal. 2 INSULIN ASPART 35723424933 No Longer Active Fanny Hudson MA Activ e ONGLYZA 2.5 MG TABS TAKE 1 TABLET BY MOUTH EVERY DAY FOR DIABETES 2 SAXAGLIPTIN HCL 80549027219 Active Baltazar Childers MD Active GLIPIZIDE 10MG TABLETS TAKE 2 TABLETS BY MOUTH TWICE DAILY GLIPIZIDE 11838266828 Active Baltazar Childers MD Active TRUE METRIX B/G TEST STRIPS 25'S TEST BLOOD SUGAR TWICE DAILY 03/02 GLUCOSE BLOOD 82872059412 Active KENDALL Juarez Active LEVOTHYROXINE 0.112MG (112MCG) TABS TAKE 1 TABLET BY MOUTH EVERY DAY LEVOTHYROXINE SODIUM 61045745999 Active Baltazar Childers MD Active AMLODIPINE BESYLATE 5MG TABLETS TAKE 1 TABLET BY MOUTH EVERY DAY FOR HYPERTENSION AMLODIPINE BESYLATE 93361546778 Active Ro yvan Childers MD Active LANTUS SOLOSTAR 100 UNIT/ML SUBCUTANEOUS SOLUTION PEN- INJECTOR 20 units am and 13 units at night INSULIN GLARGINE 40332070633 Active Baltazar Childers MD Active TRAMADOL HCL 50 MG ORAL TABLET 1 twice a day as needed for pain TRAMADOL HCL 16221457524 No Longer Active Baltazar Childers MD Active ROBAXIN 500 MG ORAL TABLET Take 1.5 (one and one half) tabs once daily METHOCARBAMOL 25633712469 Active Baltazar Childers MD Active TRUE METRIX AIR GLUCOSE METER DEVICE Use as directed BLOOD GLUCOSE MONITORING SUPPL 40094932848 Active Baltazar Childers MD Activ e NORTRIPTYLINE HCL 50 MG ORAL CAPSULE 1 twice a day for neuropathy 2 NORTRIPTYLINE HCL 47638940943 Active Baltazar Childers MD Acti ve ASPIRIN 81 MG TBEC Take one (1) tablet by mouth daily ASPIRIN 08080471967 Active Baltazar Childers MD Active GABAPENTIN 300 MG ORAL CAPSULE 1 three times a day 201 12/03/26 GABAPENTIN 53492861423 No Longer Active Baltazar Childers MD Activ e LISINOPRIL 20 MG ORAL TABLET 1 tablet by mouth daily at night 2016 LISINOPRIL 27597197292 Active Baltazar Childers MD Active ZITHROMAX Z-ISAIAS 250 MG ORAL TABLET Take two tablets to day and then 1 tablet daily for 4 days AZITHROMYCIN 74617034626 No Longer A ctive Baltazar Childers MD Active SUCRALFATE 1 GM ORAL TABLET 1 four times a day to coat the stoma ch SUCRALFATE 69100098735 No Longer Active Baltazar Childers MD Active PEN NEEDLES 31G X 6 MM use 1 daily INSULIN PEN NE EDLE 72155589987 Active KENDALL Juarez Active TOUJEO SOLOSTAR 300 UNIT/ML SUBCUTANEOUS SOLUTION PEN- INJECTOR 10 units SC daily INSULIN GLARGINE 34994428813 No Longer Active Rola ARGUETA Active NAPROXEN SODIUM 220 MG ORAL TABLET 1 three times a day as needed NAPROXEN SODIUM 41915112881 No Longer Active Baltazar Childers MD Active ATORVASTATIN CALCIUM 20 MG ORAL TABLET Take 1 tab daily ATORVASTATIN CALCIUM 20294407096 Active Baltazar Childers MD A ctive FUROSEMIDE 40 MG ORAL TABLET Take one by mouth daily FUROSEMIDE 40457937843 Active Baltazar Childers MD Active LISINOPRIL 20 MG ORAL TABLET Take one by mouth daily at bedtime LISINOPRIL 82928871530 No Longer Active Baltazar Childers MD Active ONETOUCH ULTRA BLUE IN VITRO STRIP Test twice a day 07/11/11 GLUCOSE BLOOD 41979830983 No Longer Active Baltazar Childers MD Acti ve TRUEPLUS LANCETS 33G Test twice a day LANCETS 4634510 2692 Active KENDALL Juarez Active TRUEDRAW LANCING DEVICE Test twice a day LANCET DEVICES 35906408800 Active Baltazar Childers MD Active TRUETRACK BLOOD GLUCOSE w/Device KIT Test twice a day BLOOD GLUCOSE MONITORING SUPPL 88103060259 Active Baltazar Childers MD Activ e GABAPENTIN 300 MG ORAL CAPSULE 1 po qd x 2 days, then 1 po BID x 2 days, then 1 po TID GABAPENTIN 67057203926 No Longer Active Baltazar Childers MD Active NAPROXEN 500 MG ORAL TABLET 1 tablet by mouth twice daily NAPROXEN 19002267149 No Longer Active Baltazar Childers MD Active PROAIR HFA 108 (90 Base) MCG/ACT INHALATION AEROSOL SO LUTION 2 puffs four times a day as needed ALBUTEROL SULFATE 88269491024 Active R gilberto Childers MD Active DEPO-TESTOSTERONE 200 MG/ML INTRAMUSCULAR SOLUTION as directed TESTOSTERONE CYPIONATE 76945020112 No Longer Active Baltazar Childers MD Active LIPITOR 20 MG ORAL TABLET Take one by mouth daily in evening ATORVASTATIN CALCIUM 26977044558 No Longer Active Baltazar Childers MD Active CRESTOR 10 MG ORAL TABLET 1 by mouth every day ROSUVASTATIN CALCIUM 94814046853 No Longer Active Baltazar Childers MD Active PHENTERMINE HCL 37.5 MG ORAL TABLET Take one by mouth daily PHENTERMINE HCL 01747944727 No Longer Active Baltazar Childers MD Ac tive TIZANIDINE HCL 4 MG ORAL TABLET 1 daily as needed for muscle spa sm TIZANIDINE HCL 82852291781 No Longer Active Dawna Salazar RN Active DICFZABEJO-IGQS-HRXKZQER 50-325-40 MG ORAL TABLET 1 fo ur times a day as needed for heacache TKTLAFRIGY-SZLD-YUTIZNTG 56538257254 Active KENDALL Juarez Active SUMATRIPTAN SUCCINATE 100 MG ORAL TABLET 1 tablet by m outh at onset of migraine as needed SUMATRIPTAN SUCCINATE 99065890492 Active Fanny Hudson MA Active LORATADINE 10 MG ORAL TABLET Take one by mouth daily LORATADINE 99222502723 Active Fanny Hudson MA Active OMEPRAZOLE 20 MG ORAL CAPSULE DELAYED RELEASE Take one by mouth jostin ly OMEPRAZOLE 55734336282 Active Baltazar Childers MD Active HYDROXYZINE HCL 25 MG ORAL TABLET Take one by mouth daily HYDROXYZINE HCL 69519019902 Active Baltazar Childers MD Active ALPRAZOLAM 1 MG ORAL TABLET 1 tablet by mouth daily at bedti me for restless leg ALPRAZOLAM 77564862162 Active Baltazar Childers MD Active METFORMIN HCL 1000 MG ORAL TABLET Take one by mouth twice daily METFORMIN HCL 81828973223 Active Baltazar Childers MD Active TIZANIDINE HCL 4 MG ORAL TABLET 1 daily as needed for muscle spa sm TIZANIDINE HCL 4 MG ORAL TABLET 419142 TIZANIDINE HCL Inactive PHENTERMINE HCL 37.5 MG ORAL TABLET Take one by mouth daily PHENTERMINE HCL 37.5 MG ORAL TABLET 107788 PHENTERMINE HCL Inac tive CRESTOR 10 MG ORAL TABLET 1 by mouth every day CRESTOR 10 MG ORAL TABLET 756351 ROSUVASTATIN CALCIUM Inactive LIPITOR 20 MG ORAL TABLET Take one by mouth daily in evening LIPITOR 20 MG ORAL TABLET 556389 ATORVASTATIN CALCIUM Inactive DEPO-TESTOSTERONE 200 MG/ML INTRAMUSCULAR SOLUTION as directed DEPO-TESTOSTERONE 200 MG/ML INTRAMUSCULAR SOLUTION 9093559 RUFINO TOSTERONE CYPIONATE Inactive NAPROXEN 500 MG ORAL TABLET 1 tablet by mouth twice daily NAPROXEN 500 MG ORAL TABLET 940875 NAPROXEN Inactive GABAPENTIN 300 MG ORAL CAPSULE 1 po qd x 2 days, then 1 po BID x 2 days, then 1 po TID GABAPENTIN 300 MG ORAL CAPSULE 669476 GABAP ENTIN Inactive ONETOUCH ULTRA BLUE IN VITRO STRIP Test twice a day 07/11/11 ONETOUCH ULTRA BLUE IN VITRO STRIP GLUCOSE BLOOD Inact amie NAPROXEN SODIUM 220 MG ORAL TABLET 1 three times a day as needed NAPROXEN SODIUM 220 MG ORAL TABLET 84163325413 NAPROXEN SODI UM Inactive TOUJEO SOLOSTAR 300 UNIT/ML SUBCUTANEOUS SOLUTION PEN- INJECTOR 10 units SC daily TOUJEO SOLOSTAR 300 UNIT/ML SUBCUTANEOUS SOLUTION PEN-INJECTOR INSULIN GLARGINE Inactive SUCRALFATE 1 GM ORAL TABLET 1 four times a day to coat the stoma SUCRALFATE 1 GM ORAL TABLET 086404 SUCRALFATE Inac tive GABAPENTIN 300 MG ORAL CAPSULE 1 three times a day 201 12/03/26 GABAPENTIN 300 MG ORAL CAPSULE 037449 GABAPENTIN Inactive TRAMADOL HCL 50 MG ORAL TABLET 1 twice a day as needed for pain TRAMADOL HCL 50 MG ORAL TABLET 143121 TRAMADOL HCL I nactive ZITHROMAX Z-ISAIAS 250 MG ORAL TABLET Take two tablets to day and then 1 tablet daily for 4 days ZITHROMAX Z-ISAIAS 250 MG ORAL TAB LET 337033 AZITHROMYCIN Inactive Immunizations Vaccine Administration Date Value [...] Fluarix, Agriflu(>= 18 yo)) Fluzone (>3 yrs.) [[id number]] Influenza, seasonal, inject able Seasonal influenza vaccine, injectable, containing preservative, for > 3 years old (Afluria, FluLaval, Fluzone, Fluvirin, Fluarix, Agriflu(>= 18 yo)) Fluzone (>3 yrs.) [[id number]] Influenza, seasonal, inject able Vital Signs Date [...] - Chem istry sodium, serum 136 mmol/L 830-052 0390/06/04 potassium, serum 4.9 mmol/L 3.5-5.2 chloride, serum 97 mmol/L 98-107 carbon dioxide, venous blood 35.3 mmol/L 21.0-32 .0 blood glucose 239 mg/dL 65-95 calcium, serum 10.6 mg/dL 8.5-10.1 urea nitrogen, blood 31 mg/dL 7-18 creatinine, serum 2.33 mg/dL 0.60-1.30 Estimated Glomerular Filtration Rate (calc) 23 (?) mL/min/1.73m2 = OR > 60 mL/min sodium, serum 141 mmol/L 197-775 0416/07/09 potassium, serum 4.9 mmol/L 3.5-5.2 chloride, serum [...] C - Chemistry sodium, serum 137 mmol/L 739-892 3223/10/17 potassium, serum 4.9 mmol/L 3.5-5.2 chloride, serum [...] Panel - Chemistry cholesterol, serum 156 mg/dL 286-460 3900/05/20 triglyceride, serum, fasting 283 mg/dL 30-200 HDL cholesterol, serum 53 mg/dL 32-60 LDL cholesterol, serum 46 mg/dL 0-130 hemoglobin A1C, blood, as % of total hemoglobin 8.7 % 4.3-6.0 sodium, serum 136 mmol/L 723-098 7429/05/20 potassium, serum 5.0 mmol/L 3.5-5.2 chloride, serum [...] Ordered Encounters Code Encounter Date Provider Facility CPT-74015 [id number] Vst-Est Level IV 16:19:48 CDT Charlie Childers MD [facility] CPT-19629 [id number] Vst-Est Level IV 14:22:53 [employer] Charlie Childers MD [facility] CPT-89255 16569-Lpx Vst-Est Level IV 15:48:51 [employer] Charlie Childers MD [facility] CPT-96808 17090-Czp Vst-Est Level V 14:28:39 CDT Aneudy Childers MD [facility] CPT-22940 77186-Qul Vst-Est Level IV 15:03:32 CDT Charlie Childers MD [facility] CPT-59751 40972-Wkp Vst-Est Level III 15:51:57 CDT Baltazar Childers MD [facility] CPT-15367 33866-Gzv Vst-Est Level IV 15:14:58 CDT Charlie Childers MD [facility] CPT-33461 42702-Qrl Vst-Est Level IV 15:12:52 [employer] Charlie Childers MD [facility] CPT-85832 19384-Mdh Vst-Est Level IV 15:30:55 [employer] Charlie Childers MD [facility] CPT-60625 46948-Gee Vst-Est Level IV 13:49:06 C DT Ann Martinez [facility] CPT-76882 Level 4 Est. Patient 17:26:08 CDT Ann [facility] CPT-03274 80181-Bao Vst-Est Level V 14:26:27 CDT Aneudy Childers MD [facility] CPT-24425 Level 4 Est. Patient 17:05:37 CDT Baltazar Childers MD [facility] CPT-49331 Level 4 Est. Patient 16:21:19 [employer] Baltazar Childers MD [facility] CPT-06855 Level 4 Est. Patient 12:25:11 CDT Baltazar Childers MD [facility] CPT-26922 Level 4 Est. Patient 14:22:31 CDT Baltazar Childers MD [facility] CPT-14485 Level 4 Est. Patient 15:44:38 CDT Shonna Parker APRN [facility] CPT-42829 Level 4 Est. Patient 11:34:17 CDT Baltazar Childers MD [facility] CPT-40086 Level 3 Est. Patient 16:40:40 CDT Baltazar Childers MD [facility] CPT-11310 Level 4 Est. Patient 10:41:24 CDT Baltazar Childers MD [facility] CPT-56920 Level 4 Est. Patient 16:01:48 CDT Baltazar Childers MD [facility] CPT-62464 Level 4 Est. Patient 16:54:07 [employer] Baltazar Childers MD [facility] CPT-67899 Level 4 Est. Patient 15:42:12 CDT Baltazar Childers MD [facility] CPT-41769 Level 4 Est. Patient 11:29:55 CDT Baltazar Childers MD [facility] CPT-13629 Level 4 Est. Patient 14:15:19 CDT Baltazar Childers MD [facility] CPT-26810 Level 4 Est. Patient 12:20:13 CDT Baltazar Childers MD [facility] CPT-73468 Level 4 Est. Patient 14:52:45 [employer] Baltazar Childers MD [facility] CPT-87563 Level 4 Est. Patient 14:18:34 [employer] Baltazar Childers MD [facility] CPT-48543 Level 4 Est. Patient 15:18:29 CDT Baltazar Childers MD [facility] CPT-90502 Level 3 Est. Patient 12:45:34 CDT Baltazar Childers MD [facility] CPT-17502 Level 3 Est. Patient 10:10:11 CDT Baltazar Childers MD [facility] CPT-96783 Level 3 Est. Patient 14:07:50 CDT Baltazar Childers MD [facility] CPT-45032 Level 4 Est. Patient 12:26:10 [employer] Baltazar Childers MD [facility] CPT-53027 Level 4 Est. Patient 14:45:38 CDT Baltazar Childers MD [facility] CPT-96096 Level 4 New Patient 12:30:48 CDT Baltazar hinton MD [facility] Procedures Code Procedure Name Date Entry Date Standard Desc ription CPT-22682 Venipuncture Draw Fee 16:23:32 CDT CPT-OO7489X (3066F) Documentation of treatment for n ephropathy 16:19:46 CDT CPT-LH1564S (3060F) Positive microalbumi abimael test result documented and reviewed 16:19:46 CDT CPT-000 Give Appropriate Flu Vaccine 14:07:28 [employer] 2 CPT-87026 Venipuncture Draw Fee 16:24:55 [employer] CPT-03953 78810 - Immun Admin 1 vac 14:54:52 [employer] 2019 CPT-72451 Fluzone Quadrivalent (Flu) 0.5 mL 10Pk S yringe IM 14:54:52 [employer]IE[employer] CPT-EK7331Q (4013F) Statin therapy prescribed or cur rently being taken 14:07:28 [employer] CHIEF CPT-DH5105H (3066F) Documentation of treatment for n ephropathy 14:07:28 [employer] CPT-77059 Venipuncture Draw Fee 17:47:23 CDT CPT-14519 4M Drug Screen cup test, Multi-panel, urine 2018 14:28:39 CDT CPT-34785 Venipuncture Draw Fee 15:19:00 CDT CPT-000 Give Appropriate Flu Vaccine 12:25:14 CDT 2 CPT-11615 First Vx - Ix admin via ID I M or jet injects without counseling by physician 13:08:59 CDT CPT-58654 Fluzone Quadrivalent Intramuscular Suspe nsion 0.5 ML 13:08:59 CDT CPT-88336 Venipuncture Draw Fee 12:04:12 CDT CPT-89688 Lipid - LAB USE ONLY 17:39:15 [employer]IEF 9 CPT-41846 HGBA1C - LAB USE ONLY 17:39:15 [employer]IE[employer] CPT-45968 CMP - LAB USE ONLY 17:39:14 [employer] CHIEF CPT-29808 Venipuncture Draw Fee 17:39:14 [employer] CHIEF CPT-81671 First Vx - Ix admin via ID I M or jet injects without counseling by physician 16:55:17 [employer]IEF CPT-12028 Fluzone Quadrivalent Intramuscular Suspe nsion 0.5 ML 16:55:17 [employer] CHIEF CPT-96574 Renal Panel - LAB USE ONLY 17:39:20 CDT 201 10/31/07 CPT-00181 CBC - LAB USE ONLY 17:39:20 CDT CPT-97538 Venipuncture Draw Fee 17:39:20 CDT CPT-03884 Venipuncture Draw Fee 14:33:30 CDT CPT-88363 Renal Panel - LAB USE ONLY 14:33:30 CDT 201 10/31/07 CPT-19116 CBC - LAB USE ONLY 14:33:29 CDT CPT-51676 Venipuncture Draw Fee 14:50:21 [employer] CPT-28473 Immunization Single Admin 17:35:35 CDT 2014 CPT-66468 Fluzone Quadrivalent preservative free ( >=3yrs.) 17:35:35 CDT CPT-22100 Venipuncture Draw Fee 12:10:27 [employer] CHIEF CPT-52364 Fluzone Quadrivalent Intramuscular Suspe nsion 0.5 ML 10:49:13 CDT CPT-26368 First Vx Component - Ix admi n via ID IM or jet inj without physician counseling 15:17:19 [employer] CPT-67598 Pneumovax 23 15:17:19 [employer] CHIEF CPT-33919 Pneumovax 14:52:45 [employer]IEF CPT-97788 Venipuncture Draw Fee 14:06:30 [employer] CHIEF CPT-000 Give Appropriate Flu Vaccine 14:18:34 [employer]IEF 2 CPT-25344 Administration single or combination vac cine inc oral 14:46:00 [employer]IEF CPT-90627 Influenza split virus > age 3 14:46:00 [employer]IE[employer] CPT-OV Office Visit 19:13:16 CDT CPT-44442 Zostavax 18:41:56 CDT CPT-87851 Administration single or combination vac cine inc oral 12:56:39 CDT CPT-67985 Zoster Vaccine (Zostavax) 12:56:39 CDT 2012 CPT-98285 Venipuncture Draw Fee 10:58:57 CDT CPT-61942 Sono pelvis non OB uterus ovaries cervix 17:45:04 CDT CPT-50061 Sono retroperitoneal complete kidneys an d bladder 17:14:36 CDT CPT-OV Office Visit 14:59:38 [employer] CPT-J1070 Depo Testosterone 100 mg 14:50:13 CDT 03/05 CPT-54854 Abx/Therapy Injection 14:50:13 CDT CPT-37666 Administration single or combination vac cine inc oral 14:34:43 CDT CPT-27216 Influenza split virus > age 3 14:34:43 CDT CPT-J1070 Depo Testosterone 100 mg 17:37:13 CDT 01/11 CPT-98400 Abx/Therapy Injection 17:37:13 CDT CPT-59675 Venipuncture Draw Fee 16:30:13 CDT CPT-16357 Venipuncture Draw Fee 16:29:43 CDT CPT-J1070 Depo Testosterone 100 mg 14:45:38 CDT 01/11
--- OUTSIDE RECORDS SUMMARY | 2019-10-27 11:27 | XMS REPORT | Clinical Summary ---
Author Author Admin, Elba Lance [facility] Address Unknown Phone Unavailable Allergies, Adverse Reactions, [...] Morbid obesity due to excess calories 278.01 [facility] t Baltazar Childers MD Morbid obesity Obesity Class II (BMI 35-39.9) 278.01 Refinement 10/26 Baltazar Childers MD Morbid obesity Morbid obesity due to excess calories 278.01 [facility] t Baltazar Childers MD Morbid obesity Obesity Class II (BMI 35-39.9) 278.01 Refinement 01/19 Baltazar Childers MD Morbid obesity Morbid obesity due to excess calories 278.01 [facility] t Baltazar Childers MD Morbid [...] ronary atherosclerosis of unspecified type of vessel, [place] or graft OTH NONSPC ABN FINDNG RAD&OTH [...] prophylactic vaccin ation and inoculation against influenza Pharyngitis ICD-462 Inactive Baltazar Childers MD Influenza Vaccination for Prophylaxis ICD-V04.81 8 Inactive Fadumo Ruiz COLON POLYPS ICD-211.3 Inactive Lolis Thomas APR N Medication List Medication Instructions Start Date Stop Date Generic Name NDC Status Provider Patient Instruction HYDROCODONE-ACETAMINOPHEN 7.5-325 MG ORAL TABLET Take 1 tab every 6-8 hours PRN HYDROCODONE-ACETAMINOPHEN 17118047252 Active Baltazar silverman MD Active SUCRALFATE 1 GM TABS 1 four times a day 1 hour before meals and at bedtime SUCRALFATE 67384613058 Active Fanny Hudson MA Active INSULIN SYRINGE 27G X 1/2" 0.5 ML use 1 as needed. INSULIN SYRINGE- NEEDLE U-100 83757761178 Active Fanny Hudson MA Active MAGNESIUM OXIDE 400 MG ORAL CAPSULE 1 po bid MAGNESIUM OXIDE 49284205911 Active Fadumo Ruiz Active HUMALOG 100 UNIT/ML SUBCUTANEOUS SOLUTION Take 10 units with every meal INSULIN LISPRO 93496248099 Active Baltazar Childers MD Active NOVOLOG 100 UNIT/ML SUBCUTANEOUS SOLUTION 5 units with each meal. 2 INSULIN ASPART 14152288700 No Longer Active Fanny Hudson MA Activ e ONGLYZA 2.5 MG TABS TAKE 1 TABLET BY MOUTH EVERY DAY FOR DIABETES 2 SAXAGLIPTIN HCL 95042861555 Active Baltazar Childers MD Active GLIPIZIDE 10MG TABLETS TAKE 2 TABLETS BY MOUTH TWICE DAILY GLIPIZIDE 62556670372 Active Baltazar Childers MD Active TRUE METRIX B/G TEST STRIPS 25'S TEST BLOOD SUGAR TWICE DAILY 03/02 GLUCOSE BLOOD 55970396609 Active KENDALL Juarez Active LEVOTHYROXINE 0.112MG (112MCG) TABS TAKE 1 TABLET BY MOUTH EVERY DAY LEVOTHYROXINE SODIUM 43498709207 Active Baltazar Childers MD Active AMLODIPINE BESYLATE 5MG TABLETS TAKE 1 TABLET BY MOUTH EVERY DAY FOR HYPERTENSION AMLODIPINE BESYLATE 89598721441 Active Ro yvan Childers MD Active LANTUS SOLOSTAR 100 UNIT/ML SUBCUTANEOUS SOLUTION PEN- INJECTOR 20 units am and 13 units at night INSULIN GLARGINE 31590302816 Active Baltazar Childers MD Active TRAMADOL HCL 50 MG ORAL TABLET 1 twice a day as needed for pain TRAMADOL HCL 64895300841 No Longer Active Baltazar Childers MD Active ROBAXIN 500 MG ORAL TABLET Take 1.5 (one and one half) tabs once daily METHOCARBAMOL 74267527406 Active Baltazar Childers MD Active TRUE METRIX AIR GLUCOSE METER DEVICE Use as directed BLOOD GLUCOSE MONITORING SUPPL 19601121993 Active Baltazar Childers MD Activ e NORTRIPTYLINE HCL 50 MG ORAL CAPSULE 1 twice a day for neuropathy 2 NORTRIPTYLINE HCL 04134409883 Active Baltazar Childers MD Acti ve ASPIRIN 81 MG TBEC Take one (1) tablet by mouth daily ASPIRIN 82472015727 Active Baltazar Childers MD Active GABAPENTIN 300 MG ORAL CAPSULE 1 three times a day 201 12/03/26 GABAPENTIN 77013533413 No Longer Active Baltazar Childers MD Activ e LISINOPRIL 20 MG ORAL TABLET 1 tablet by mouth daily at night 2016 LISINOPRIL 59921786781 Active Baltazar Childers MD Active ZITHROMAX Z-ISAIAS 250 MG ORAL TABLET Take two tablets to day and then 1 tablet daily for 4 days AZITHROMYCIN 56932865727 No Longer A ctive Baltazar Childers MD Active SUCRALFATE 1 GM ORAL TABLET 1 four times a day to coat the stoma ch SUCRALFATE 76764918952 No Longer Active Baltazar Childers MD Active PEN NEEDLES 31G X 6 MM use 1 daily INSULIN PEN NE EDLE 88642779383 Active KENDALL Juarez Active TOUJEO SOLOSTAR 300 UNIT/ML SUBCUTANEOUS SOLUTION PEN- INJECTOR 10 units SC daily INSULIN GLARGINE 07456075767 No Longer Active Rola ARGUETA Active NAPROXEN SODIUM 220 MG ORAL TABLET 1 three times a day as needed NAPROXEN SODIUM 95117319666 No Longer Active Baltazar Childers MD Active ATORVASTATIN CALCIUM 20 MG ORAL TABLET Take 1 tab daily ATORVASTATIN CALCIUM 15532446685 Active Baltazar Childers MD A ctive FUROSEMIDE 40 MG ORAL TABLET Take one by mouth daily FUROSEMIDE 73748175677 Active Baltazar Childers MD Active LISINOPRIL 20 MG ORAL TABLET Take one by mouth daily at bedtime LISINOPRIL 94710188618 No Longer Active Baltazar Childers MD Active ONETOUCH ULTRA BLUE IN VITRO STRIP Test twice a day 07/11/11 GLUCOSE BLOOD 90775645766 No Longer Active Baltazar Childers MD Acti ve TRUEPLUS LANCETS 33G Test twice a day LANCETS 9284745 2846 Active KENDALL Juarez Active TRUEDRAW LANCING DEVICE Test twice a day LANCET DEVICES 03971028347 Active Baltazar Childers MD Active TRUETRACK BLOOD GLUCOSE w/Device KIT Test twice a day BLOOD GLUCOSE MONITORING SUPPL 00754849578 Active Baltazar Childers MD Activ e GABAPENTIN 300 MG ORAL CAPSULE 1 po qd x 2 days, then 1 po BID x 2 days, then 1 po TID GABAPENTIN 83174275092 No Longer Active Baltazar Childers MD Active NAPROXEN 500 MG ORAL TABLET 1 tablet by mouth twice daily NAPROXEN 58906601800 No Longer Active Baltazar Childers MD Active PROAIR HFA 108 (90 Base) MCG/ACT INHALATION AEROSOL SO LUTION 2 puffs four times a day as needed ALBUTEROL SULFATE 47957690259 Active R gilberto Childers MD Active DEPO-TESTOSTERONE 200 MG/ML INTRAMUSCULAR SOLUTION as directed TESTOSTERONE CYPIONATE 00866808097 No Longer Active Baltazar Childers MD Active LIPITOR 20 MG ORAL TABLET Take one by mouth daily in evening ATORVASTATIN CALCIUM 18523413614 No Longer Active Baltazar Childers MD Active CRESTOR 10 MG ORAL TABLET 1 by mouth every day ROSUVASTATIN CALCIUM 87526561796 No Longer Active Baltazar Childers MD Active PHENTERMINE HCL 37.5 MG ORAL TABLET Take one by mouth daily PHENTERMINE HCL 81340211732 No Longer Active Baltazar Childers MD Ac tive TIZANIDINE HCL 4 MG ORAL TABLET 1 daily as needed for muscle spa sm TIZANIDINE HCL 54095893458 No Longer Active Dawna Salazar RN Active [id number] 50-325-40 MG ORAL TABLET 1 fo ur times a day as needed for heacache [id number] 49907924421 Active KENDALL Juarez Active SUMATRIPTAN SUCCINATE 100 MG ORAL TABLET 1 tablet by m outh at onset of migraine as needed SUMATRIPTAN SUCCINATE 20426804533 Active Fanny Hudson MA Active LORATADINE 10 MG ORAL TABLET Take one by mouth daily LORATADINE 24879348168 Active Fanny Hudosn MA Active OMEPRAZOLE 20 MG ORAL CAPSULE DELAYED RELEASE Take one by mouth jostin ly OMEPRAZOLE 24830311952 Active Baltazar Childers MD Active HYDROXYZINE HCL 25 MG ORAL TABLET Take one by mouth daily HYDROXYZINE HCL 11237879984 Active Baltazar Childers MD Active ALPRAZOLAM 1 MG ORAL TABLET 1 tablet by mouth daily at bedti me for restless leg ALPRAZOLAM 49397805613 Active Baltazar Childers MD Active METFORMIN HCL 1000 MG ORAL TABLET Take one by mouth twice daily METFORMIN HCL 97640903121 Active Baltazar Childers MD Active TIZANIDINE HCL 4 MG ORAL TABLET 1 daily as needed for muscle spa sm TIZANIDINE HCL 4 MG ORAL TABLET 512316 TIZANIDINE HCL Inactive PHENTERMINE HCL 37.5 MG ORAL TABLET Take one by mouth daily PHENTERMINE HCL 37.5 MG ORAL TABLET 920966 PHENTERMINE HCL Inac tive CRESTOR 10 MG ORAL TABLET 1 by mouth every day CRESTOR 10 MG ORAL TABLET 750624 ROSUVASTATIN CALCIUM Inactive LIPITOR 20 MG ORAL TABLET Take one by mouth daily in evening LIPITOR 20 MG ORAL TABLET 300374 ATORVASTATIN CALCIUM Inactive DEPO-TESTOSTERONE 200 MG/ML INTRAMUSCULAR SOLUTION as directed DEPO-TESTOSTERONE 200 MG/ML INTRAMUSCULAR SOLUTION 9712193 RUFINO TOSTERONE CYPIONATE Inactive NAPROXEN 500 MG ORAL TABLET 1 tablet by mouth twice daily NAPROXEN 500 MG ORAL TABLET 563082 NAPROXEN Inactive GABAPENTIN 300 MG ORAL CAPSULE 1 po qd x 2 days, then 1 po BID x 2 days, then 1 po TID GABAPENTIN 300 MG ORAL CAPSULE 881530 GABAP ENTIN Inactive ONETOUCH ULTRA BLUE IN VITRO STRIP Test twice a day 07/11/11 ONETOUCH ULTRA BLUE IN VITRO STRIP GLUCOSE BLOOD Inact amie NAPROXEN SODIUM 220 MG ORAL TABLET 1 three times a day as needed NAPROXEN SODIUM 220 MG ORAL TABLET 23286421990 NAPROXEN SODI UM Inactive TOUJEO SOLOSTAR 300 UNIT/ML SUBCUTANEOUS SOLUTION PEN- INJECTOR 10 units SC daily TOUJEO SOLOSTAR 300 UNIT/ML SUBCUTANEOUS SOLUTION PEN-INJECTOR INSULIN GLARGINE Inactive SUCRALFATE 1 GM ORAL TABLET 1 four times a day to coat the stoma SUCRALFATE 1 GM ORAL TABLET 112791 SUCRALFATE Inac tive GABAPENTIN 300 MG ORAL CAPSULE 1 three times a day 201 12/03/26 GABAPENTIN 300 MG ORAL CAPSULE 002264 GABAPENTIN Inactive TRAMADOL HCL 50 MG ORAL TABLET 1 twice a day as needed for pain TRAMADOL HCL 50 MG ORAL TABLET 738307 TRAMADOL HCL I nactive ZITHROMAX Z-ISAIAS 250 MG ORAL TABLET Take two tablets to day and then 1 tablet daily for 4 days ZITHROMAX Z-ISAIAS 250 MG ORAL TAB LET 044908 AZITHROMYCIN Inactive Immunizations Vaccine Administration Date Value [...] Fluarix, Agriflu(>= 18 yo)) Fluzone (>3 yrs.) [AWK031] Influenza, seasonal, inject able Seasonal influenza vaccine, injectable, containing preservative, for > 3 years old (Afluria, FluLaval, Fluzone, Fluvirin, Fluarix, Agriflu(>= 18 yo)) Fluzone (>3 yrs.) [[id number]] Influenza, seasonal, inject able Vital Signs Date [...] - Chem istry sodium, serum 136 mmol/L 220-445 6167/06/04 potassium, serum 4.9 mmol/L 3.5-5.2 chloride, serum 97 mmol/L 98-107 carbon dioxide, venous blood 35.3 mmol/L 21.0-32 .0 blood glucose 239 mg/dL 65-95 calcium, serum 10.6 mg/dL 8.5-10.1 urea nitrogen, blood 31 mg/dL 7-18 creatinine, serum 2.33 mg/dL 0.60-1.30 Estimated Glomerular Filtration Rate (calc) 23 (?) mL/min/1.73m2 = OR > 60 mL/min sodium, serum 141 mmol/L 769-273 9402/07/09 potassium, serum 4.9 mmol/L 3.5-5.2 chloride, serum [...] C - Chemistry sodium, serum 137 mmol/L 399-214 4137/10/17 potassium, serum 4.9 mmol/L 3.5-5.2 chloride, serum [...] Panel - Chemistry cholesterol, serum 156 mg/dL 766-392 3330/05/20 triglyceride, serum, fasting 283 mg/dL 30-200 HDL cholesterol, serum 53 mg/dL 32-60 LDL cholesterol, serum 46 mg/dL 0-130 hemoglobin A1C, blood, as % of total hemoglobin 8.7 % 4.3-6.0 sodium, serum 136 mmol/L 851-318 1337/05/20 potassium, serum 5.0 mmol/L 3.5-5.2 chloride, serum [...] Ordered Encounters Code Encounter Date Provider Facility CPT-34429 [id number]-Bug Vst-Est Level IV 16:19:48 CDT Charlie Childers MD [facility] CPT-12242 21100-Gmo Vst-Est Level IV 14:22:53 [employer] Charlie Childers MD [facility] CPT-66119 30425-Lxk Vst-Est Level IV 15:48:51 [employer] Charlie Childers MD [facility] CPT-36960 78101-Uvw Vst-Est Level V 14:28:39 CDT Aneudy Childers MD [facility] CPT-06181 17843-Qvm Vst-Est Level IV 15:03:32 CDT Charlie Childers MD [facility] CPT-46864 24869-Fvz Vst-Est Level III 15:51:57 CDT Baltazar Childers MD [facility] CPT-57748 63323-Cja Vst-Est Level IV 15:14:58 CDT Charlie Childers MD [facility] CPT-25935 96162-Acv Vst-Est Level IV 15:12:52 [employer] Charlie Childers MD [facility] CPT-22644 52214-Vaa Vst-Est Level IV 15:30:55 [employer] Charlie Childers MD [facility] CPT-63723 42548-Bxe Vst-Est Level IV 13:49:06 C DT Ann Martinez [facility] CPT-89570 Level 4 Est. Patient 17:26:08 CDT [facility] CPT-76710 73231-Uyc Vst-Est Level V 14:26:27 CDT Aneudy Childers MD [facility] CPT-58092 Level 4 Est. Patient 17:05:37 CDT Baltazar Childers MD [facility] CPT-57279 Level 4 Est. Patient 16:21:19 [employer] Baltazar Childers MD [facility] CPT-33196 Level 4 Est. Patient 12:25:11 CDT Baltazar Childers MD [facility] CPT-25655 Level 4 Est. Patient 14:22:31 CDT Baltazar Childers MD [facility] CPT-23066 Level 4 Est. Patient 15:44:38 CDT Shonna Parker APRN [facility] CPT-74470 Level 4 Est. Patient 11:34:17 CDT Baltazar Childers MD [facility] CPT-10553 Level 3 Est. Patient 16:40:40 CDT Baltazar Childers MD [facility] CPT-57809 Level 4 Est. Patient 10:41:24 CDT Baltazar Childers MD [facility] CPT-59889 Level 4 Est. Patient 16:01:48 CDT Baltazar Childers MD [facility] CPT-53148 Level 4 Est. Patient 16:54:07 [employer] Baltazar Childers MD [facility] CPT-83362 Level 4 Est. Patient 15:42:12 CDT Baltazar Childers MD [facility] CPT-61992 Level 4 Est. Patient 11:29:55 CDT Baltazar Childers MD [facility] CPT-29587 Level 4 Est. Patient 14:15:19 CDT Baltazar Childers MD [facility] CPT-25899 Level 4 Est. Patient 12:20:13 CDT Baltazar Childers MD [facility] CPT-58516 Level 4 Est. Patient 14:52:45 [employer] Baltazar Childers MD [facility] CPT-59668 Level 4 Est. Patient 14:18:34 [employer] Baltazar Childers MD [facility] CPT-32874 Level 4 Est. Patient 15:18:29 CDT Baltazar Childers MD [facility] CPT-10165 Level 3 Est. Patient 12:45:34 CDT Baltazar Childers MD [facility] CPT-65246 Level 3 Est. Patient 10:10:11 CDT Baltazar Childers MD [facility] CPT-15185 Level 3 Est. Patient 14:07:50 CDT Baltazar Childers MD [facility] CPT-22508 Level 4 Est. Patient 12:26:10 [employer] Baltazar Childers MD [facility] CPT-42933 Level 4 Est. Patient 14:45:38 CDT Baltazar Childers MD [facility] CPT-23563 Level 4 New Patient 12:30:48 CDT Baltazar hinton MD [facility] Procedures Code Procedure Name Date Entry Date Standard Desc ription CPT-05952 Venipuncture Draw Fee 16:23:32 CDT CPT-TM7160V (3066F) Documentation of treatment for n ephropathy 16:19:46 CDT CPT-OB4616Y (3060F) Positive microalbumi abimael test result documented and reviewed 16:19:46 CDT CPT-000 Give Appropriate Flu Vaccine 14:07:28 [employer]ER 2 CPT-50194 Venipuncture Draw Fee 16:24:55 [employer] CPT-57463 00103 - Immun Admin 1 vac 14:54:52 [employer]ER 2019 CPT-39539 Fluzone Quadrivalent (Flu) 0.5 mL 10Pk S yringe IM 14:54:52 [employer] CPT-XS8058Z (4013F) Statin therapy prescribed or cur rently being taken 14:07:28 [employer] CPT-AJ4582J (3066F) Documentation of treatment for n ephropathy 14:07:28 [employer] CPT-55327 Venipuncture Draw Fee 17:47:23 CDT CPT-19706 4M Drug Screen cup test, Multi-panel, urine 2018 14:28:39 CDT CPT-24753 Venipuncture Draw Fee 15:19:00 CDT CPT-000 Give Appropriate Flu Vaccine 12:25:14 CDT 2 CPT-89501 First Vx - Ix admin via ID I M or jet injects without counseling by physician 13:08:59 CDT CPT-43045 Fluzone Quadrivalent Intramuscular Suspe nsion 0.5 ML 13:08:59 CDT CPT-08806 Venipuncture Draw Fee 12:04:12 CDT CPT-59442 Lipid - LAB USE ONLY 17:39:15 FL[employer]BED STITCHER 9 CPT-26190 HGBA1C - LAB USE ONLY 17:39:15 [employer]ED ST[employer]ER CPT-65883 CMP - LAB USE ONLY 17:39:14 [employer]ED STITCHER CPT-14010 Venipuncture Draw Fee 17:39:14 FL[employer]ED STITCHER CPT-50201 First Vx - Ix admin via ID I M or jet injects without counseling by physician 16:55:17 [employer]BED [employer]ITCHER CPT-11937 Fluzone Quadrivalent Intramuscular Suspe nsion 0.5 ML 16:55:17 [employer]BED [employer]ITCHER CPT-07662 Renal Panel - LAB USE ONLY 17:39:20 CDT 201 10/31/07 CPT-62491 CBC - LAB USE ONLY 17:39:20 CDT CPT-17862 Venipuncture Draw Fee 17:39:20 CDT CPT-85528 Venipuncture Draw Fee 14:33:30 CDT CPT-18059 Renal Panel - LAB USE ONLY 14:33:30 CDT 201 10/31/07 CPT-22749 CBC - LAB USE ONLY 14:33:29 CDT CPT-56576 Venipuncture Draw Fee 14:50:21 [employer] CPT-92826 Immunization Single Admin 17:35:35 CDT 2014 CPT-42613 Fluzone Quadrivalent preservative free ( >=3yrs.) 17:35:35 CDT CPT-08488 Venipuncture Draw Fee 12:10:27 [employer]ER CPT-22855 Fluzone Quadrivalent Intramuscular Suspe nsion 0.5 ML 10:49:13 CDT CPT-34462 First Vx Component - Ix admi n via ID IM or jet inj without physician counseling 15:17:19 [employer]ER CPT-27549 Pneumovax 23 15:17:19 [employer]ER CPT-45918 Pneumovax 14:52:45 [employer]ER CPT-81884 Venipuncture Draw Fee 14:06:30 [employer]ER CPT-000 Give Appropriate Flu Vaccine 14:18:34 FL[employer]ED STITCHER 2 CPT-64716 Administration single or combination vac cine inc oral 14:46:00 [employer] CPT-89142 Influenza split virus > age 3 14:46:00 [employer] CPT-OV Office Visit 19:13:16 CDT CPT-43642 Zostavax 18:41:56 CDT CPT-12383 Administration single or combination vac cine inc oral 12:56:39 CDT CPT-86365 Zoster Vaccine (Zostavax) 12:56:39 CDT 2012 CPT-44919 Venipuncture Draw Fee 10:58:57 CDT CPT-66275 Sono pelvis non OB uterus ovaries cervix 17:45:04 CDT CPT-53260 Sono retroperitoneal complete kidneys an d bladder 17:14:36 CDT CPT-OV Office Visit 14:59:38 [employer] CPT-J1070 Depo Testosterone 100 mg 14:50:13 CDT 03/05 CPT-40468 Abx/Therapy Injection 14:50:13 CDT CPT-69646 Administration single or combination vac cine inc oral 14:34:43 CDT CPT-74794 Influenza split virus > age 3 14:34:43 CDT CPT-J1070 Depo Testosterone 100 mg 17:37:13 CDT 01/11 CPT-52059 Abx/Therapy Injection 17:37:13 CDT CPT-52453 Venipuncture Draw Fee 16:30:13 CDT CPT-54169 Venipuncture Draw Fee 16:29:43 CDT CPT-J1070 Depo Testosterone 100 mg 14:45:38 CDT 01/11
--- OUTSIDE RECORDS SUMMARY | 2019-10-27 11:27 | XMS REPORT | Clinical Summary ---
Author Author Admin, Elba Lance [facility] Address Unknown Phone Unavailable Allergies, Adverse [...] Morbid obesity due to excess calories 278.01 [facility] t Baltazar Childers MD Morbid obesity Obesity Class II (BMI 35-39.9) 278.01 Refinement 10/26 Baltazar Childers MD Morbid obesity Morbid obesity due to excess calories 278.01 [facility] t Baltazar Childers MD Morbid obesity Obesity Class II (BMI 35-39.9) 278.01 Refinement 01/19 Baltazar Childers MD Morbid obesity Morbid obesity due to excess calories 278.01 [facility] t Baltazar Childers MD Morbid obesity [...] ronary atherosclerosis of unspecified type of vessel, red devil or graft OTH NONSPC ABN FINDNG RAD&OTH [...] Tucker LPN Unspecified hypothyroidism Pharyngitis 462 Resolved Baltzaar Childers MD Acute pharyngitis BMI 37-37.9 adult [...] 1 tab every 6-8 hours PRN HYDROCODONE-ACETAMINOPHEN 18956164126 Active Baltazar silverman MD Active SUCRALFATE 1 GM TABS 1 four times a day 1 hour before meals and at bedtime SUCRALFATE 38361682207 Active Fanny Hudson MA Active INSULIN SYRINGE 27G X 1/2" 0.5 ML use 1 as needed. INSULIN SYRINGE- NEEDLE U-100 01451292075 Active Fanny Hudson MA Active MAGNESIUM OXIDE 400 MG ORAL CAPSULE 1 po bid MAGNESIUM OXIDE 41301894877 Active Fadumo Ruiz Active HUMALOG 100 UNIT/ML SUBCUTANEOUS SOLUTION Take 10 units with every meal INSULIN LISPRO 38007842715 Active Baltazar Childers MD Active NOVOLOG 100 UNIT/ML SUBCUTANEOUS SOLUTION 5 units with each meal. 2 INSULIN ASPART 00769490629 No Longer Active Fanny Hudson MA Activ e ONGLYZA 2.5 MG TABS TAKE 1 TABLET BY MOUTH EVERY DAY FOR DIABETES 2 SAXAGLIPTIN HCL 18058017632 Active Baltazar Childers MD Active GLIPIZIDE 10MG TABLETS TAKE 2 TABLETS BY MOUTH TWICE DAILY GLIPIZIDE 47245566554 Active Baltazar Childers MD Active TRUE METRIX B/G TEST STRIPS 25'S TEST BLOOD SUGAR TWICE DAILY 03/02 GLUCOSE BLOOD 73042903143 Active KENDALL Juarez Active LEVOTHYROXINE 0.112MG (112MCG) TABS TAKE 1 TABLET BY MOUTH EVERY DAY LEVOTHYROXINE SODIUM 38046226829 Active Baltazar Childers MD Active AMLODIPINE BESYLATE 5MG TABLETS TAKE 1 TABLET BY MOUTH EVERY DAY FOR HYPERTENSION AMLODIPINE BESYLATE 32182895069 Active Ro yvan Childers MD Active LANTUS SOLOSTAR 100 UNIT/ML SUBCUTANEOUS SOLUTION PEN- INJECTOR 20 units am and 13 units at night INSULIN GLARGINE 19812763008 Active Baltazar Childers MD Active TRAMADOL HCL 50 MG ORAL TABLET 1 twice a day as needed for pain TRAMADOL HCL 88483817647 No Longer Active Baltazar Childers MD Active ROBAXIN 500 MG ORAL TABLET Take 1.5 (one and one half) tabs once daily METHOCARBAMOL 65318731347 Active Baltazar Childers MD Active TRUE METRIX AIR GLUCOSE METER DEVICE Use as directed BLOOD GLUCOSE MONITORING SUPPL 85745962218 Active Baltazar Childers MD Activ e NORTRIPTYLINE HCL 50 MG ORAL CAPSULE 1 twice a day for neuropathy 2 NORTRIPTYLINE HCL 35114275559 Active Baltazar Childers MD Acti ve ASPIRIN 81 MG TBEC Take one (1) tablet by mouth daily ASPIRIN 58160911519 Active Baltazar Childers MD Active GABAPENTIN 300 MG ORAL CAPSULE 1 three times a day 201 12/03/26 GABAPENTIN 40012054381 No Longer Active Baltazar Childers MD Activ e LISINOPRIL 20 MG ORAL TABLET 1 tablet by mouth daily at night 2016 LISINOPRIL 24353648842 Active Baltazar Childers MD Active ZITHROMAX Z-ISAIAS 250 MG ORAL TABLET Take two tablets to day and then 1 tablet daily for 4 days AZITHROMYCIN 38951113911 No Longer A ctive Baltazar Childers MD Active SUCRALFATE 1 GM ORAL TABLET 1 four times a day to coat the stoma ch SUCRALFATE 58344598424 No Longer Active Baltazar Childers MD Active PEN NEEDLES 31G X 6 MM use 1 daily INSULIN PEN NE EDLE 91875994595 Active KENDALL Juarez Active TOUJEO SOLOSTAR 300 UNIT/ML SUBCUTANEOUS SOLUTION PEN- INJECTOR 10 units SC daily INSULIN GLARGINE 06132145436 No Longer Active Rola ARGUETA Active NAPROXEN SODIUM 220 MG ORAL TABLET 1 three times a day as needed NAPROXEN SODIUM 05681332435 No Longer Active Baltazar Childers MD Active ATORVASTATIN CALCIUM 20 MG ORAL TABLET Take 1 tab daily ATORVASTATIN CALCIUM 84647058836 Active Baltazar Childers MD A ctive FUROSEMIDE 40 MG ORAL TABLET Take one by mouth daily FUROSEMIDE 76635710666 Active Baltazar Childers MD Active LISINOPRIL 20 MG ORAL TABLET Take one by mouth daily at bedtime LISINOPRIL 75429782266 No Longer Active Baltazar Childers MD Active ONETOUCH ULTRA BLUE IN VITRO STRIP Test twice a day 07/11/11 GLUCOSE BLOOD 93578495188 No Longer Active Baltazar Childers MD Acti ve TRUEPLUS LANCETS 33G Test twice a day LANCETS 5434852 9137 Active KENDALL Juarez Active TRUEDRAW LANCING DEVICE Test twice a day LANCET DEVICES 96147882560 Active Baltazar Childers MD Active TRUETRACK BLOOD GLUCOSE w/Device KIT Test twice a day BLOOD GLUCOSE MONITORING SUPPL 11209211744 Active Baltazar Childers MD Activ e GABAPENTIN 300 MG ORAL CAPSULE 1 po qd x 2 days, then 1 po BID x 2 days, then 1 po TID GABAPENTIN 37917142703 No Longer Active Baltazar Childers MD Active NAPROXEN 500 MG ORAL TABLET 1 tablet by mouth twice daily NAPROXEN 04450359622 No Longer Active Baltazar Childers MD Active PROAIR HFA 108 (90 Base) MCG/ACT INHALATION AEROSOL SO LUTION 2 puffs four times a day as needed ALBUTEROL SULFATE 12049934333 Active R gilberto Childers MD Active DEPO-TESTOSTERONE 200 MG/ML INTRAMUSCULAR SOLUTION as directed TESTOSTERONE CYPIONATE 02681315253 No Longer Active Baltaazr Childers MD Active LIPITOR 20 MG ORAL TABLET Take one by mouth daily in evening ATORVASTATIN CALCIUM 31621360045 No Longer Active Baltazar Childers MD Active CRESTOR 10 MG ORAL TABLET 1 by mouth every day ROSUVASTATIN CALCIUM 30182943092 No Longer Active Baltazar Childers MD Active PHENTERMINE HCL 37.5 MG ORAL TABLET Take one by mouth daily PHENTERMINE HCL 09237596037 No Longer Active Baltazar Childers MD Ac tive TIZANIDINE HCL 4 MG ORAL TABLET 1 daily as needed for muscle spa sm TIZANIDINE HCL 64212377262 No Longer Active Dawna Salazar RN Active [id number] 50-325-40 MG ORAL TABLET 1 fo ur times a day as needed for heacache [id number] 19532631317 Active KENDALL Juarez Active SUMATRIPTAN SUCCINATE 100 MG ORAL TABLET 1 tablet by m outh at onset of migraine as needed SUMATRIPTAN SUCCINATE 24523723432 Active Fanny Hudson MA Active LORATADINE 10 MG ORAL TABLET Take one by mouth daily LORATADINE 57486406644 Active Fanny uHdson MA Active OMEPRAZOLE 20 MG ORAL CAPSULE DELAYED RELEASE Take one by mouth jostin ly OMEPRAZOLE 22619068581 Active Baltazar Childers MD Active HYDROXYZINE HCL 25 MG ORAL TABLET Take one by mouth daily HYDROXYZINE HCL 17243454624 Active Baltazar Childers MD Active ALPRAZOLAM 1 MG ORAL TABLET 1 tablet by mouth daily at bedti me for restless leg ALPRAZOLAM 88260283751 Active Baltazar Childers MD Active METFORMIN HCL 1000 MG ORAL TABLET Take one by mouth twice daily METFORMIN HCL 46407576323 Active Baltazar Childers MD Active TIZANIDINE HCL 4 MG ORAL TABLET 1 daily as needed for muscle spa sm TIZANIDINE HCL 4 MG ORAL TABLET 052958 TIZANIDINE HCL Inactive PHENTERMINE HCL 37.5 MG ORAL TABLET Take one by mouth daily PHENTERMINE HCL 37.5 MG ORAL TABLET 904885 PHENTERMINE HCL Inac tive CRESTOR 10 MG ORAL TABLET 1 by mouth every day CRESTOR 10 MG ORAL TABLET 875298 ROSUVASTATIN CALCIUM Inactive LIPITOR 20 MG ORAL TABLET Take one by mouth daily in evening LIPITOR 20 MG ORAL TABLET 313318 ATORVASTATIN CALCIUM Inactive DEPO-TESTOSTERONE 200 MG/ML INTRAMUSCULAR SOLUTION as directed DEPO-TESTOSTERONE 200 MG/ML INTRAMUSCULAR SOLUTION 8067117 RUFINO TOSTERONE CYPIONATE Inactive NAPROXEN 500 MG ORAL TABLET 1 tablet by mouth twice daily NAPROXEN 500 MG ORAL TABLET 439117 NAPROXEN Inactive GABAPENTIN 300 MG ORAL CAPSULE 1 po qd x 2 days, then 1 po BID x 2 days, then 1 po TID GABAPENTIN 300 MG ORAL CAPSULE 350452 GABAP ENTIN Inactive ONETOUCH ULTRA BLUE IN VITRO STRIP Test twice a day 07/11/11 ONETOUCH ULTRA BLUE IN VITRO STRIP GLUCOSE BLOOD Inact amie NAPROXEN SODIUM 220 MG ORAL TABLET 1 three times a day as needed NAPROXEN SODIUM 220 MG ORAL TABLET 24935250211 NAPROXEN SODI UM Inactive TOUJEO SOLOSTAR 300 UNIT/ML SUBCUTANEOUS SOLUTION PEN- INJECTOR 10 units SC daily TOUJEO SOLOSTAR 300 UNIT/ML SUBCUTANEOUS SOLUTION PEN-INJECTOR INSULIN GLARGINE Inactive SUCRALFATE 1 GM ORAL TABLET 1 four times a day to coat the stoma SUCRALFATE 1 GM ORAL TABLET 849808 SUCRALFATE Inac tive GABAPENTIN 300 MG ORAL CAPSULE 1 three times a day 201 12/03/26 GABAPENTIN 300 MG ORAL CAPSULE 774758 GABAPENTIN Inactive TRAMADOL HCL 50 MG ORAL TABLET 1 twice a day as needed for pain TRAMADOL HCL 50 MG ORAL TABLET 156319 TRAMADOL HCL I nactive ZITHROMAX Z-ISAIAS 250 MG ORAL TABLET Take two tablets to day and then 1 tablet daily for 4 days ZITHROMAX Z-ISAIAS 250 MG ORAL TAB LET 781299 AZITHROMYCIN Inactive Immunizations Vaccine Administration Date Value [...] Fluarix, Agriflu(>= 18 yo)) Fluzone (>3 yrs.) [EHS968] Influenza, seasonal, inject able Seasonal influenza vaccine, injectable, containing preservative, for > 3 years old (Afluria, FluLaval, Fluzone, Fluvirin, Fluarix, Agriflu(>= 18 yo)) Fluzone (>3 yrs.) [[id number]] Influenza, seasonal, inject able Vital Signs Date [...] - Chem istry sodium, serum 136 mmol/L 146-803 5455/06/04 potassium, serum 4.9 mmol/L 3.5-5.2 chloride, serum 97 mmol/L 98-107 carbon dioxide, venous blood 35.3 mmol/L 21.0-32 .0 blood glucose 239 mg/dL 65-95 calcium, serum 10.6 mg/dL 8.5-10.1 urea nitrogen, blood 31 mg/dL 7-18 creatinine, serum 2.33 mg/dL 0.60-1.30 Estimated Glomerular Filtration Rate (calc) 23 (?) mL/min/1.73m2 = OR > 60 mL/min sodium, serum 141 mmol/L 118-544 8768/07/09 potassium, serum 4.9 mmol/L 3.5-5.2 chloride, serum [...] C - Chemistry sodium, serum 137 mmol/L 694-388 0830/10/17 potassium, serum 4.9 mmol/L 3.5-5.2 chloride, serum [...] Panel - Chemistry cholesterol, serum 156 mg/dL 837-869 6128/05/20 triglyceride, serum, fasting 283 mg/dL 30-200 HDL cholesterol, serum 53 mg/dL 32-60 LDL cholesterol, serum 46 mg/dL 0-130 hemoglobin A1C, blood, as % of total hemoglobin 8.7 % 4.3-6.0 sodium, serum 136 mmol/L 453-021 4564/05/20 potassium, serum 5.0 mmol/L 3.5-5.2 chloride, serum [...] Ordered Encounters Code Encounter Date Provider Facility CPT-55738 [id number] Vst-Est Level IV 16:19:48 CDT Charlie Childers MD [facility] CPT-45927 39461-Krs Vst-Est Level IV 14:22:53 [employer] Charlie Childers MD [facility] CPT-76345 [id number] Vst-Est Level IV 15:48:51 [employer] Charlie Childers MD [facility] CPT-80924 77549-Vyl Vst-Est Level V 14:28:39 CDT Aneudy Childers MD [facility] CPT-07151 25684-Gip Vst-Est Level IV 15:03:32 CDT Charlie Childers MD [facility] CPT-10186 64737-Ilj Vst-Est Level III 15:51:57 CDT Baltazar Childers MD [facility] CPT-35610 82792-Qmv Vst-Est Level IV 15:14:58 CDT Charlie Childers MD [facility] CPT-01626 75721-Alv Vst-Est Level IV 15:12:52 [employer] Charlie Childers MD [facility] CPT-54896 02458-Jbe Vst-Est Level IV 15:30:55 [employer] Charlie Childers MD [facility] CPT-57365 30131-Alp Vst-Est Level IV 13:49:06 C DT Ann Martinez [facility] CPT-38816 Level 4 Est. Patient 17:26:08 CDT [facility] CPT-64119 09473-Fjy Vst-Est Level V 14:26:27 CDT Aneudy Childers MD [facility] CPT-91836 Level 4 Est. Patient 17:05:37 CDT Baltazar Childers MD [facility] CPT-09216 Level 4 Est. Patient 16:21:19 [employer] Baltazar Childers MD [facility] CPT-27464 Level 4 Est. Patient 12:25:11 CDT Baltazar Childers MD [facility] CPT-76057 Level 4 Est. Patient 14:22:31 CDT Baltazar Childers MD [facility] CPT-48697 Level 4 Est. Patient 15:44:38 CDT Shonna Parker APRN [facility] CPT-56558 Level 4 Est. Patient 11:34:17 CDT Baltazar Childers MD [facility] CPT-08373 Level 3 Est. Patient 16:40:40 CDT Baltazar Childers MD [facility] CPT-90003 Level 4 Est. Patient 10:41:24 CDT Baltazar Childers MD [facility] CPT-45752 Level 4 Est. Patient 16:01:48 CDT Baltazar Childers MD [facility] CPT-62345 Level 4 Est. Patient 16:54:07 [employer] Baltazar Childers MD [facility] CPT-92029 Level 4 Est. Patient 15:42:12 CDT Baltazar Childers MD [facility] CPT-53687 Level 4 Est. Patient 11:29:55 CDT Baltazar Childers MD [facility] CPT-90623 Level 4 Est. Patient 14:15:19 CDT Baltazar Childers MD [facility] CPT-39333 Level 4 Est. Patient 12:20:13 CDT Baltazar Childers MD [facility] CPT-20255 Level 4 Est. Patient 14:52:45 [employer] Baltazar Childers MD [facility] CPT-05207 Level 4 Est. Patient 14:18:34 [employer] Baltazar Childers MD [facility] CPT-88845 Level 4 Est. Patient 15:18:29 CDT Baltazar Childers MD [facility] CPT-13095 Level 3 Est. Patient 12:45:34 CDT Baltazar Childers MD [facility] CPT-40476 Level 3 Est. Patient 10:10:11 CDT Baltazar Childers MD [facility] CPT-92533 Level 3 Est. Patient 14:07:50 CDT Baltazar Childers MD [facility] CPT-36355 Level 4 Est. Patient 12:26:10 [employer] Baltazar Childers MD [facility] CPT-67281 Level 4 Est. Patient 14:45:38 CDT Baltazar Childers MD [facility] CPT-95894 Level 4 New Patient 12:30:48 CDT Baltazar hinton MD [facility] Procedures Code Procedure Name Date Entry Date Standard Desc ription CPT-14647 Venipuncture Draw Fee 16:23:32 CDT CPT-HH7300I (3066F) Documentation of treatment for n ephropathy 16:19:46 CDT CPT-BZ9090C (3060F) Positive microalbumi abimael test result documented and reviewed 16:19:46 CDT CPT-000 Give Appropriate Flu Vaccine 14:07:28 [employer] 2 CPT-37736 Venipuncture Draw Fee 16:24:55 [employer] CPT-65303 55449 - Immun Admin 1 vac 14:54:52 [employer] 2019 CPT-48868 Fluzone Quadrivalent (Flu) 0.5 mL 10Pk S yringe IM 14:54:52 [employer] CPT-HO1806L (4013F) Statin therapy prescribed or cur rently being taken 14:07:28 [employer] CPT-NR4280P (3066F) Documentation of treatment for n ephropathy 14:07:28 [employer] CPT-58838 Venipuncture Draw Fee 17:47:23 CDT CPT-99289 4M Drug Screen cup test, Multi-panel, urine 2018 14:28:39 CDT CPT-30174 Venipuncture Draw Fee 15:19:00 CDT CPT-000 Give Appropriate Flu Vaccine 12:25:14 CDT 2 CPT-62452 First Vx - Ix admin via ID I M or jet injects without counseling by physician 13:08:59 CDT CPT-42516 Fluzone Quadrivalent Intramuscular Suspe nsion 0.5 ML 13:08:59 CDT CPT-70484 Venipuncture Draw Fee 12:04:12 CDT CPT-78726 Lipid - LAB USE ONLY 17:39:15 [employer] 9 CPT-40810 HGBA1C - LAB USE ONLY 17:39:15 [employer] CPT-50725 CMP - LAB USE ONLY 17:39:14 [employer] CPT-82235 Venipuncture Draw Fee 17:39:14 [employer] CPT-42536 First Vx - Ix admin via ID I M or jet injects without counseling by physician 16:55:17 [employer] CPT-65576 Fluzone Quadrivalent Intramuscular Suspe nsion 0.5 ML 16:55:17 [employer] CPT-68462 Renal Panel - LAB USE ONLY 17:39:20 CDT 201 10/31/07 CPT-25575 CBC - LAB USE ONLY 17:39:20 CDT CPT-78493 Venipuncture Draw Fee 17:39:20 CDT CPT-46533 Venipuncture Draw Fee 14:33:30 CDT CPT-57198 Renal Panel - LAB USE ONLY 14:33:30 CDT 201 10/31/07 CPT-81461 CBC - LAB USE ONLY 14:33:29 CDT CPT-82211 Venipuncture Draw Fee 14:50:21 [employer] CPT-81666 Immunization Single Admin 17:35:35 CDT 2014 CPT-45683 Fluzone Quadrivalent preservative free ( >=3yrs.) 17:35:35 CDT CPT-99563 Venipuncture Draw Fee 12:10:27 [employer] CPT-06340 Fluzone Quadrivalent Intramuscular Suspe nsion 0.5 ML 10:49:13 CDT CPT-44256 First Vx Component - Ix admi n via ID IM or jet inj without physician counseling 15:17:19 [employer] CPT-86425 Pneumovax 23 15:17:19 [employer] CPT-38636 Pneumovax 14:52:45 [employer] CPT-41625 Venipuncture Draw Fee 14:06:30 [employer] CPT-000 Give Appropriate Flu Vaccine 14:18:34 [employer] 2 CPT-68368 Administration single or combination vac cine inc oral 14:46:00 [employer] CPT-67911 Influenza split virus > age 3 14:46:00 [employer] CPT-OV Office Visit 19:13:16 CDT CPT-52008 Zostavax 18:41:56 CDT CPT-69844 Administration single or combination vac cine inc oral 12:56:39 CDT CPT-97423 Zoster Vaccine (Zostavax) 12:56:39 CDT 2012 CPT-66698 Venipuncture Draw Fee 10:58:57 CDT CPT-49782 Sono pelvis non OB uterus ovaries cervix 17:45:04 CDT CPT-41702 Sono retroperitoneal complete kidneys an d bladder 17:14:36 CDT CPT-OV Office Visit 14:59:38 [employer] CPT-J1070 Depo Testosterone 100 mg 14:50:13 CDT 03/05 CPT-85608 Abx/Therapy Injection 14:50:13 CDT CPT-60185 Administration single or combination vac cine inc oral 14:34:43 CDT CPT-40790 Influenza split virus > age 3 14:34:43 CDT CPT-J1070 Depo Testosterone 100 mg 17:37:13 CDT 01/11 CPT-52895 Abx/Therapy Injection 17:37:13 CDT CPT-95678 Venipuncture Draw Fee 16:30:13 CDT CPT-18265 Venipuncture Draw Fee 16:29:43 CDT CPT-J1070 Depo Testosterone 100 mg 14:45:38 CDT 01/11
--- OUTSIDE RECORDS SUMMARY | 2019-10-27 11:27 | XMS REPORT | Clinical Summary ---
Author Author Admin, Elba Lance [facility] Address Unknown Phone Unavailable Allergies, Adverse [...] Morbid obesity due to excess calories 278.01 [facility] t Baltazar Childers MD Morbid obesity Obesity Class II (BMI 35-39.9) 278.01 Refinement 10/26 Baltazar Childers MD Morbid obesity Morbid obesity due to excess calories 278.01 [facility] t Baltazar Childers MD Morbid obesity Obesity Class II (BMI 35-39.9) 278.01 Refinement 01/19 Baltazar Childers MD Morbid obesity Morbid obesity due to excess calories 278.01 [facility] t Baltazar Childers MD Morbid [...] ronary atherosclerosis of unspecified type of vessel, [place] or graft OTH NONSPC ABN FINDNG RAD&OTH EXM BODY STRUCTURE 793.99 11/08 Active Jesys Joseph Other nonspecific (a bnormal) findings on [...] 37.0-37.9, adult Screening mammogram V76.12 Active Baltazar byunm MD Other screening mammogram Sleep apnea 780.57 [...] 1 tab every 6-8 hours PRN HYDROCODONE-ACETAMINOPHEN 25314772479 Active Baltazar silverman MD Active SUCRALFATE 1 GM TABS 1 four times a day 1 hour before meals and at bedtime SUCRALFATE 71023249889 Active Fanny Hudson MA Active INSULIN SYRINGE 27G X 1/2" 0.5 ML use 1 as needed. INSULIN SYRINGE- NEEDLE U-100 21645416464 Active Fanny Hudson MA Active MAGNESIUM OXIDE 400 MG ORAL CAPSULE 1 po bid MAGNESIUM OXIDE 58954757309 Active Fadumo Ruiz Active HUMALOG 100 UNIT/ML SUBCUTANEOUS SOLUTION Take 10 units with every meal INSULIN LISPRO 52838022005 Active Baltazar Childers MD Active NOVOLOG 100 UNIT/ML SUBCUTANEOUS SOLUTION 5 units with each meal. 2 INSULIN ASPART 92006895741 No Longer Active Fanny Hudson MA Activ e ONGLYZA 2.5 MG TABS TAKE 1 TABLET BY MOUTH EVERY DAY FOR DIABETES 2 SAXAGLIPTIN HCL 42824636149 Active Baltazar Childers MD Active GLIPIZIDE 10MG TABLETS TAKE 2 TABLETS BY MOUTH TWICE DAILY GLIPIZIDE 70301620180 Active Baltazar Childers MD Active TRUE METRIX B/G TEST STRIPS 25'S TEST BLOOD SUGAR TWICE DAILY 03/02 GLUCOSE BLOOD 92362361384 Active KENDALL Juarez Active LEVOTHYROXINE 0.112MG (112MCG) TABS TAKE 1 TABLET BY MOUTH EVERY DAY LEVOTHYROXINE SODIUM 02511871502 Active Baltazar Childers MD Active AMLODIPINE BESYLATE 5MG TABLETS TAKE 1 TABLET BY MOUTH EVERY DAY FOR HYPERTENSION AMLODIPINE BESYLATE 19919731505 Active Ro yvan Childers MD Active LANTUS SOLOSTAR 100 UNIT/ML SUBCUTANEOUS SOLUTION PEN- INJECTOR 20 units am and 13 units at night INSULIN GLARGINE 34234607140 Active Baltazar Childers MD Active TRAMADOL HCL 50 MG ORAL TABLET 1 twice a day as needed for pain TRAMADOL HCL 27016326151 No Longer Active Baltazar Childers MD Active ROBAXIN 500 MG ORAL TABLET Take 1.5 (one and one half) tabs once daily METHOCARBAMOL 37559662230 Active Baltazar Childers MD Active TRUE METRIX AIR GLUCOSE METER DEVICE Use as directed BLOOD GLUCOSE MONITORING SUPPL 06201813218 Active Baltazar Childers MD Activ e NORTRIPTYLINE HCL 50 MG ORAL CAPSULE 1 twice a day for neuropathy 2 NORTRIPTYLINE HCL 82619948187 Active Baltazar Childers MD Acti ve ASPIRIN 81 MG TBEC Take one (1) tablet by mouth daily ASPIRIN 45075783809 Active Baltazar Childers MD Active GABAPENTIN 300 MG ORAL CAPSULE 1 three times a day 201 12/03/26 GABAPENTIN 15595393260 No Longer Active Baltazar Childers MD Activ e LISINOPRIL 20 MG ORAL TABLET 1 tablet by mouth daily at night 2016 LISINOPRIL 50412696037 Active Baltazar Childers MD Active ZITHROMAX Z-ISAIAS 250 MG ORAL TABLET Take two tablets to day and then 1 tablet daily for 4 days AZITHROMYCIN 82132344711 No Longer A ctive Baltazar Childers MD Active SUCRALFATE 1 GM ORAL TABLET 1 four times a day to coat the stoma ch SUCRALFATE 78883028211 No Longer Active Baltazar Childers MD Active PEN NEEDLES 31G X 6 MM use 1 daily INSULIN PEN NE EDLE 96642869365 Active KENDALL Juarez Active TOUJEO SOLOSTAR 300 UNIT/ML SUBCUTANEOUS SOLUTION PEN- INJECTOR 10 units SC daily INSULIN GLARGINE 16316994601 No Longer Active Rola ARGUETA Active NAPROXEN SODIUM 220 MG ORAL TABLET 1 three times a day as needed NAPROXEN SODIUM 40511167722 No Longer Active Baltazar Childers MD Active ATORVASTATIN CALCIUM 20 MG ORAL TABLET Take 1 tab daily ATORVASTATIN CALCIUM 48448146773 Active Baltazar Childers MD A ctive FUROSEMIDE 40 MG ORAL TABLET Take one by mouth daily FUROSEMIDE 11789027112 Active Baltazar Childers MD Active LISINOPRIL 20 MG ORAL TABLET Take one by mouth daily at bedtime LISINOPRIL 89054010771 No Longer Active Baltazar Childers MD Active ONETOUCH ULTRA BLUE IN VITRO STRIP Test twice a day 07/11/11 GLUCOSE BLOOD 47101431621 No Longer Active Baltazar Childers MD Acti ve TRUEPLUS LANCETS 33G Test twice a day LANCETS 0732895 0361 Active KENDALL Juarez Active TRUEDRAW LANCING DEVICE Test twice a day LANCET DEVICES 89412896146 Active Baltazar Childers MD Active TRUETRACK BLOOD GLUCOSE w/Device KIT Test twice a day BLOOD GLUCOSE MONITORING SUPPL 11382518588 Active Baltazar Childers MD Activ e GABAPENTIN 300 MG ORAL CAPSULE 1 po qd x 2 days, then 1 po BID x 2 days, then 1 po TID GABAPENTIN 06794607725 No Longer Active Baltazar Childers MD Active NAPROXEN 500 MG ORAL TABLET 1 tablet by mouth twice daily NAPROXEN 63878859872 No Longer Active Baltazar Childers MD Active PROAIR HFA 108 (90 Base) MCG/ACT INHALATION AEROSOL SO LUTION 2 puffs four times a day as needed ALBUTEROL SULFATE 42325187407 Active R gilberto Childers MD Active DEPO-TESTOSTERONE 200 MG/ML INTRAMUSCULAR SOLUTION as directed TESTOSTERONE CYPIONATE 44652940390 No Longer Active Baltazar Childers MD Active LIPITOR 20 MG ORAL TABLET Take one by mouth daily in evening ATORVASTATIN CALCIUM 59251700635 No Longer Active Baltazar Childers MD Active CRESTOR 10 MG ORAL TABLET 1 by mouth every day ROSUVASTATIN CALCIUM 37100119871 No Longer Active Baltazar Childers MD Active PHENTERMINE HCL 37.5 MG ORAL TABLET Take one by mouth daily PHENTERMINE HCL 50776448800 No Longer Active Baltazar Childers MD Ac tive TIZANIDINE HCL 4 MG ORAL TABLET 1 daily as needed for muscle spa sm TIZANIDINE HCL 63513578496 No Longer Active Dawna Salazar RN Active [id number] 50-325-40 MG ORAL TABLET 1 fo ur times a day as needed for heacache [id number] 62832623322 Active KENDALL Juarez Active SUMATRIPTAN SUCCINATE 100 MG ORAL TABLET 1 tablet by m outh at onset of migraine as needed SUMATRIPTAN SUCCINATE 64976345227 Active Fanny Hudson MA Active LORATADINE 10 MG ORAL TABLET Take one by mouth daily LORATADINE 45768717335 Active Fanny Hudson MA Active OMEPRAZOLE 20 MG ORAL CAPSULE DELAYED RELEASE Take one by mouth jostin ly OMEPRAZOLE 54708200273 Active Baltazar Childers MD Active HYDROXYZINE HCL 25 MG ORAL TABLET Take one by mouth daily HYDROXYZINE HCL 79931947521 Active Baltazar Childers MD Active ALPRAZOLAM 1 MG ORAL TABLET 1 tablet by mouth daily at bedti me for restless leg ALPRAZOLAM 09407616846 Active Baltazar Childers MD Active METFORMIN HCL 1000 MG ORAL TABLET Take one by mouth twice daily METFORMIN HCL 88853089416 Active Baltazar Childers MD Active TIZANIDINE HCL 4 MG ORAL TABLET 1 daily as needed for muscle spa sm TIZANIDINE HCL 4 MG ORAL TABLET 124761 TIZANIDINE HCL Inactive PHENTERMINE HCL 37.5 MG ORAL TABLET Take one by mouth daily PHENTERMINE HCL 37.5 MG ORAL TABLET 713538 PHENTERMINE HCL Inac tive CRESTOR 10 MG ORAL TABLET 1 by mouth every day CRESTOR 10 MG ORAL TABLET 134528 ROSUVASTATIN CALCIUM Inactive LIPITOR 20 MG ORAL TABLET Take one by mouth daily in evening LIPITOR 20 MG ORAL TABLET 625744 ATORVASTATIN CALCIUM Inactive DEPO-TESTOSTERONE 200 MG/ML INTRAMUSCULAR SOLUTION as directed DEPO-TESTOSTERONE 200 MG/ML INTRAMUSCULAR SOLUTION 1807944 RUFINO TOSTERONE CYPIONATE Inactive NAPROXEN 500 MG ORAL TABLET 1 tablet by mouth twice daily NAPROXEN 500 MG ORAL TABLET 179382 NAPROXEN Inactive GABAPENTIN 300 MG ORAL CAPSULE 1 po qd x 2 days, then 1 po BID x 2 days, then 1 po TID GABAPENTIN 300 MG ORAL CAPSULE 667415 GABAP ENTIN Inactive ONETOUCH ULTRA BLUE IN VITRO STRIP Test twice a day 07/11/11 ONETOUCH ULTRA BLUE IN VITRO STRIP GLUCOSE BLOOD Inact amie NAPROXEN SODIUM 220 MG ORAL TABLET 1 three times a day as needed NAPROXEN SODIUM 220 MG ORAL TABLET 14789976766 NAPROXEN SODI UM Inactive TOUJEO SOLOSTAR 300 UNIT/ML SUBCUTANEOUS SOLUTION PEN- INJECTOR 10 units SC daily TOUJEO SOLOSTAR 300 UNIT/ML SUBCUTANEOUS SOLUTION PEN-INJECTOR INSULIN GLARGINE Inactive SUCRALFATE 1 GM ORAL TABLET 1 four times a day to coat the stoma SUCRALFATE 1 GM ORAL TABLET 985944 SUCRALFATE Inac tive GABAPENTIN 300 MG ORAL CAPSULE 1 three times a day 201 12/03/26 GABAPENTIN 300 MG ORAL CAPSULE 196380 GABAPENTIN Inactive TRAMADOL HCL 50 MG ORAL TABLET 1 twice a day as needed for pain TRAMADOL HCL 50 MG ORAL TABLET 451436 TRAMADOL HCL I nactive ZITHROMAX Z-ISAIAS 250 MG ORAL TABLET Take two tablets to day and then 1 tablet daily for 4 days ZITHROMAX Z-ISAIAS 250 MG ORAL TAB LET 232688 AZITHROMYCIN Inactive Immunizations Vaccine Administration Date Value [...] Fluarix, Agriflu(>= 18 yo)) Fluzone (>3 yrs.) [HKE183] Influenza, seasonal, inject able Seasonal influenza vaccine, injectable, containing preservative, for > 3 years old (Afluria, FluLaval, Fluzone, Fluvirin, Fluarix, Agriflu(>= 18 yo)) Fluzone (>3 yrs.) [QOP130] Influenza, seasonal, inject able Vital Signs Date [...] - Chem istry sodium, serum 136 mmol/L 297-434 8513/06/04 potassium, serum 4.9 mmol/L 3.5-5.2 chloride, serum 97 mmol/L 98-107 carbon dioxide, venous blood 35.3 mmol/L 21.0-32 .0 blood glucose 239 mg/dL 65-95 calcium, serum 10.6 mg/dL 8.5-10.1 urea nitrogen, blood 31 mg/dL 7-18 creatinine, serum 2.33 mg/dL 0.60-1.30 Estimated Glomerular Filtration Rate (calc) 23 (?) mL/min/1.73m2 = OR > 60 mL/min sodium, serum 141 mmol/L 116-384 1067/07/09 potassium, serum 4.9 mmol/L 3.5-5.2 chloride, serum [...] C - Chemistry sodium, serum 137 mmol/L 475-971 2183/10/17 potassium, serum 4.9 mmol/L 3.5-5.2 chloride, serum [...] Panel - Chemistry cholesterol, serum 156 mg/dL 563-842 7278/05/20 triglyceride, serum, fasting 283 mg/dL 30-200 HDL cholesterol, serum 53 mg/dL 32-60 LDL cholesterol, serum 46 mg/dL 0-130 hemoglobin A1C, blood, as % of total hemoglobin 8.7 % 4.3-6.0 sodium, serum 136 mmol/L 634-326 1784/05/20 potassium, serum 5.0 mmol/L 3.5-5.2 chloride, serum [...] Ordered Encounters Code Encounter Date Provider Facility CPT-48382 [id number] Vst-Est Level IV 16:19:48 CDT Charlie Childers MD [facility] CPT-54196 85037-Hfg Vst-Est Level IV 14:22:53 COLLEGE PRESIDENT Charlie Childers MD [facility] CPT-45309 53491-Uyw Vst-Est Level IV 15:48:51 COLLEGE PRESIDENT Charlie Childers MD [facility] CPT-37562 70126-Yrs Vst-Est Level V 14:28:39 CDT Aneudy Childers MD [facility] CPT-44814 53803-Tfp Vst-Est Level IV 15:03:32 CDT Charlie Childers MD [facility] CPT-67162 58060-Dkv Vst-Est Level III 15:51:57 CDT Baltazar Childers MD [facility] CPT-33361 14043-Equ Vst-Est Level IV 15:14:58 CDT Charlie Childers MD [facility] CPT-22628 06865-Bfw Vst-Est Level IV 15:12:52 COLLEGE PRESIDENT Charlie Childers MD [facility] CPT-87549 40057-Ath Vst-Est Level IV 15:30:55 COLLEGE PRESIDENT Charlie Childers MD [facility] CPT-08723 90064-Oyp Vst-Est Level IV 13:49:06 C DT Ann Martinez [facility] CPT-75160 Level 4 Est. Patient 17:26:08 [facility] 95266-Wsf Vst-Est Level V 14:26:27 CDT Aneudy Childers MD [facility] CPT-83715 Level 4 Est. Patient 17:05:37 CDT Blatazar Childers MD [facility] CPT-00721 Level 4 Est. Patient 16:21:19 COLLEGE PRESIDENT Baltazar Childers MD [facility] CPT-55270 Level 4 Est. Patient 12:25:11 CDT Baltazar Childers MD [facility] CPT-83453 Level 4 Est. Patient 14:22:31 CDT Baltazar Childers MD [facility] CPT-69819 Level 4 Est. Patient 15:44:38 CDT Shonna Parker APRN [facility] CPT-71160 Level 4 Est. Patient 11:34:17 CDT Baltazar Childers MD [facility] CPT-06138 Level 3 Est. Patient 16:40:40 CDT Baltazar Childers MD [facility] CPT-92009 Level 4 Est. Patient 10:41:24 CDT Baltazar Childers MD [facility] CPT-31713 Level 4 Est. Patient 16:01:48 CDT Baltazar Childers MD [facility] CPT-67534 Level 4 Est. Patient 16:54:07 COLLEGE PRESIDENT Baltazar Childers MD [facility] CPT-13927 Level 4 Est. Patient 15:42:12 CDT Baltazar Childers MD [facility] CPT-50635 Level 4 Est. Patient 11:29:55 CDT Baltazar Childers MD [facility] CPT-20452 Level 4 Est. Patient 14:15:19 CDT Baltazar Childers MD [facility] CPT-77293 Level 4 Est. Patient 12:20:13 CDT Baltazar Childers MD [facility] CPT-76989 Level 4 Est. Patient 14:52:45 COLLEGE PRESIDENT Baltazar Childers MD [facility] CPT-49527 Level 4 Est. Patient 14:18:34 COLLEGE PRESIDENT Baltazar Childers MD [facility] CPT-50404 Level 4 Est. Patient 15:18:29 CDT Baltazar Childers MD [facility] CPT-73746 Level 3 Est. Patient 12:45:34 CDT Baltazar Childers MD [facility] CPT-97328 Level 3 Est. Patient 10:10:11 CDT Baltazar Childers MD [facility] CPT-29044 Level 3 Est. Patient 14:07:50 CDT Baltazar Childers MD [facility] CPT-91803 Level 4 Est. Patient 12:26:10 COLLEGE PRESIDENT Baltazar Childers MD [facility] CPT-98992 Level 4 Est. Patient 14:45:38 CDT Baltazar Childers MD [facility] CPT-17894 Level 4 New Patient 12:30:48 CDT Baltazar hinton MD [facility] Procedures Code Procedure Name Date Entry Date Standard Desc ription CPT-12705 Venipuncture Draw Fee 16:23:32 CDT CPT-RJ9353I (3066F) Documentation of treatment for n ephropathy 16:19:46 CDT CPT-TE9981R (3060F) Positive microalbumi abimael test result documented and reviewed 16:19:46 CDT CPT-000 Give Appropriate Flu Vaccine 14:07:28 COLLEGE PRESIDENT 2 CPT-51171 Venipuncture Draw Fee 16:24:55 COLLEGE PRESIDENT CPT-21446 27415 - Immun Admin 1 vac 14:54:52 COLLEGE PRESIDENT 2019 CPT-49342 Fluzone Quadrivalent (Flu) 0.5 mL 10Pk S yringe IM 14:54:52 COLLEGE PRESIDENT CPT-GM2496Y (4013F) Statin therapy prescribed or cur rently being taken 14:07:28 COLLEGE PRESIDENT CPT-OX0264P (3066F) Documentation of treatment for n ephropathy 14:07:28 COLLEGE PRESIDENT CPT-22857 Venipuncture Draw Fee 17:47:23 CDT CPT-64913 4M Drug Screen cup test, Multi-panel, urine 2018 14:28:39 CDT CPT-45628 Venipuncture Draw Fee 15:19:00 CDT CPT-000 Give Appropriate Flu Vaccine 12:25:14 CDT 2 CPT-91755 First Vx - Ix admin via ID I M or jet injects without counseling by physician 13:08:59 CDT CPT-94363 Fluzone Quadrivalent Intramuscular Suspe nsion 0.5 ML 13:08:59 CDT CPT-70766 Venipuncture Draw Fee 12:04:12 CDT CPT-40366 Lipid - LAB USE ONLY 17:39:15 COLLEGE PRESIDENT 9 CPT-53457 HGBA1C - LAB USE ONLY 17:39:15 COLLEGE PRESIDENT CPT-09675 CMP - LAB USE ONLY 17:39:14 COLLEGE PRESIDENT CPT-51329 Venipuncture Draw Fee 17:39:14 COLLEGE PRESIDENT CPT-13089 First Vx - Ix admin via ID I M or jet injects without counseling by physician 16:55:17 COLLEGE PRESIDENT CPT-45079 Fluzone Quadrivalent Intramuscular Suspe nsion 0.5 ML 16:55:17 COLLEGE PRESIDENT CPT-40517 Renal Panel - LAB USE ONLY 17:39:20 CDT 201 10/31/07 CPT-40696 CBC - LAB USE ONLY 17:39:20 CDT CPT-93752 Venipuncture Draw Fee 17:39:20 CDT CPT-55569 Venipuncture Draw Fee 14:33:30 CDT CPT-22930 Renal Panel - LAB USE ONLY 14:33:30 CDT 201 10/31/07 CPT-03635 CBC - LAB USE ONLY 14:33:29 CDT CPT-14520 Venipuncture Draw Fee 14:50:21 COLLEGE PRESIDENT CPT-69704 Immunization Single Admin 17:35:35 CDT 2014 CPT-38332 Fluzone Quadrivalent preservative free ( >=3yrs.) 17:35:35 CDT CPT-53290 Venipuncture Draw Fee 12:10:27 COLLEGE PRESIDENT CPT-77189 Fluzone Quadrivalent Intramuscular Suspe nsion 0.5 ML 10:49:13 CDT CPT-17233 First Vx Component - Ix admi n via ID IM or jet inj without physician counseling 15:17:19 COLLEGE PRESIDENT CPT-98922 Pneumovax 23 15:17:19 COLLEGE PRESIDENT CPT-85857 Pneumovax 14:52:45 COLLEGE PRESIDENT CPT-97250 Venipuncture Draw Fee 14:06:30 COLLEGE PRESIDENT CPT-000 Give Appropriate Flu Vaccine 14:18:34 COLLEGE PRESIDENT 2 CPT-17255 Administration single or combination vac cine inc oral 14:46:00 COLLEGE PRESIDENT CPT-29748 Influenza split virus > age 3 14:46:00 COLLEGE PRESIDENT CPT-OV Office Visit 19:13:16 CDT CPT-63267 Zostavax 18:41:56 CDT CPT-47747 Administration single or combination vac cine inc oral 12:56:39 CDT CPT-87521 Zoster Vaccine (Zostavax) 12:56:39 CDT 2012 CPT-41278 Venipuncture Draw Fee 10:58:57 CDT CPT-53138 Sono pelvis non OB uterus ovaries cervix 17:45:04 CDT CPT-16869 Sono retroperitoneal complete kidneys an d bladder 17:14:36 CDT CPT-OV Office Visit 14:59:38 COLLEGE PRESIDENT CPT-J1070 Depo Testosterone 100 mg 14:50:13 CDT 03/05 CPT-96516 Abx/Therapy Injection 14:50:13 CDT CPT-63961 Administration single or combination vac cine inc oral 14:34:43 CDT CPT-79957 Influenza split virus > age 3 14:34:43 CDT CPT-J1070 Depo Testosterone 100 mg 17:37:13 CDT 01/11 CPT-89386 Abx/Therapy Injection 17:37:13 CDT CPT-10785 Venipuncture Draw Fee 16:30:13 CDT CPT-42767 Venipuncture Draw Fee 16:29:43 CDT CPT-J1070 Depo Testosterone 100 mg 14:45:38 CDT 01/11
--- OUTSIDE RECORDS SUMMARY | 2019-10-27 11:28 | XMS REPORT | Clinical Summary ---
Author Author Admin, [facility] Address Unknown Phone Unavailable Allergies, Adverse Reactions, [...] unspecified hyperlipidemia CARPAL TUNNEL SYNDROME 354.0 Active Baltazra silverman MD Carpal tunnel syndrome OBESITY 278.00 [...] ronary atherosclerosis of unspecified type of vessel, [place] or graft OTH NONSPC ABN FINDNG RAD&OTH [...] 1 tab every 6-8 hours PRN HYDROCODONE-ACETAMINOPHEN 15779072493 Active Baltazar silverman MD Active SUCRALFATE 1 GM TABS 1 four times a day 1 hour before meals and at bedtime SUCRALFATE 48532605925 Active Fanny Hudson MA Active INSULIN SYRINGE 27G X 1/2" 0.5 ML use 1 as needed. INSULIN SYRINGE- NEEDLE U-100 59776406088 Active Fanny Hudson MA Active MAGNESIUM OXIDE 400 MG ORAL CAPSULE 1 po bid MAGNESIUM OXIDE 35350146597 Active Fadumo Ruiz Active HUMALOG 100 UNIT/ML SUBCUTANEOUS SOLUTION Take 10 units with every meal INSULIN LISPRO 40799846100 Active Baltazar Childers MD Active NOVOLOG 100 UNIT/ML SUBCUTANEOUS SOLUTION 5 units with each meal. 2 INSULIN ASPART 83956038182 No Longer Active Fanny Hudson MA Activ e ONGLYZA 2.5 MG TABS TAKE 1 TABLET BY MOUTH EVERY DAY FOR DIABETES 2 SAXAGLIPTIN HCL 97903816525 Active Baltazar Childers MD Active GLIPIZIDE 10MG TABLETS TAKE 2 TABLETS BY MOUTH TWICE DAILY GLIPIZIDE 35382544390 Active Baltazar Childers MD Active TRUE METRIX B/G TEST STRIPS 25'S TEST BLOOD SUGAR TWICE DAILY 03/02 GLUCOSE BLOOD 51477664259 Active KENDALL Juarez Active LEVOTHYROXINE 0.112MG (112MCG) TABS TAKE 1 TABLET BY MOUTH EVERY DAY LEVOTHYROXINE SODIUM 40159673750 Active Baltazar Childers MD Active AMLODIPINE BESYLATE 5MG TABLETS TAKE 1 TABLET BY MOUTH EVERY DAY FOR HYPERTENSION AMLODIPINE BESYLATE 41442028522 Active Ro yvan Childers MD Active LANTUS SOLOSTAR 100 UNIT/ML SUBCUTANEOUS SOLUTION PEN- INJECTOR 20 units am and 13 units at night INSULIN GLARGINE 90333852149 Active Baltazar Childers MD Active TRAMADOL HCL 50 MG ORAL TABLET 1 twice a day as needed for pain TRAMADOL HCL 62411229982 No Longer Active Baltazar Childers MD Active ROBAXIN 500 MG ORAL TABLET Take 1.5 (one and one half) tabs once daily METHOCARBAMOL 02747459690 Active Baltazar Childers MD Active TRUE METRIX AIR GLUCOSE METER DEVICE Use as directed BLOOD GLUCOSE MONITORING SUPPL 98975876056 Active Baltazar Childers MD Activ e NORTRIPTYLINE HCL 50 MG ORAL CAPSULE 1 twice a day for neuropathy 2 NORTRIPTYLINE HCL 97433507889 Active Baltazar Childers MD Acti ve ASPIRIN 81 MG TBEC Take one (1) tablet by mouth daily ASPIRIN 25851415510 Active Baltazar Childers MD Active GABAPENTIN 300 MG ORAL CAPSULE 1 three times a day 201 12/03/26 GABAPENTIN 74734781840 No Longer Active Baltazar Childers MD Activ e LISINOPRIL 20 MG ORAL TABLET 1 tablet by mouth daily at night 2016 LISINOPRIL 85080854438 Active Baltazar Childers MD Active ZITHROMAX Z-ISAIAS 250 MG ORAL TABLET Take two tablets to day and then 1 tablet daily for 4 days AZITHROMYCIN 40176489513 No Longer A ctive Baltazar Childers MD Active SUCRALFATE 1 GM ORAL TABLET 1 four times a day to coat the stoma ch SUCRALFATE 80867805332 No Longer Active Baltazar Childers MD Active PEN NEEDLES 31G X 6 MM use 1 daily INSULIN PEN NE EDLE 31141378686 Active KENDALL Juarez Active TOUJEO SOLOSTAR 300 UNIT/ML SUBCUTANEOUS SOLUTION PEN- INJECTOR 10 units SC daily INSULIN GLARGINE 93651514174 No Longer Active Rola ARGUETA Active NAPROXEN SODIUM 220 MG ORAL TABLET 1 three times a day as needed NAPROXEN SODIUM 19350182764 No Longer Active Baltazar Childers MD Active ATORVASTATIN CALCIUM 20 MG ORAL TABLET Take 1 tab daily ATORVASTATIN CALCIUM 89959510626 Active Baltazar Childers MD A ctive FUROSEMIDE 40 MG ORAL TABLET Take one by mouth daily FUROSEMIDE 76271002761 Active Baltazar Childers MD Active LISINOPRIL 20 MG ORAL TABLET Take one by mouth daily at bedtime LISINOPRIL 83630321827 No Longer Active Baltazar Childers MD Active ONETOUCH ULTRA BLUE IN VITRO STRIP Test twice a day 07/11/11 GLUCOSE BLOOD 82188154846 No Longer Active Baltazar Childers MD Acti ve TRUEPLUS LANCETS 33G Test twice a day LANCETS 7812737 8643 Active KENDALL Juarez Active TRUEDRAW LANCING DEVICE Test twice a day LANCET DEVICES 47280619499 Active Baltazar Childers MD Active TRUETRACK BLOOD GLUCOSE w/Device KIT Test twice a day BLOOD GLUCOSE MONITORING SUPPL 35661387746 Active Baltazar Childers MD Activ e GABAPENTIN 300 MG ORAL CAPSULE 1 po qd x 2 days, then 1 po BID x 2 days, then 1 po TID GABAPENTIN 90259691676 No Longer Active Baltazar Childers MD Active NAPROXEN 500 MG ORAL TABLET 1 tablet by mouth twice daily NAPROXEN 80005843504 No Longer Active Baltazar Childers MD Active PROAIR HFA 108 (90 Base) MCG/ACT INHALATION AEROSOL SO LUTION 2 puffs four times a day as needed ALBUTEROL SULFATE 60571833513 Active R gilberto Childers MD Active DEPO-TESTOSTERONE 200 MG/ML INTRAMUSCULAR SOLUTION as directed TESTOSTERONE CYPIONATE 57839566951 No Longer Active Baltazar Childers MD Active LIPITOR 20 MG ORAL TABLET Take one by mouth daily in evening ATORVASTATIN CALCIUM 19463441687 No Longer Active Baltazar Childers MD Active CRESTOR 10 MG ORAL TABLET 1 by mouth every day ROSUVASTATIN CALCIUM 84986275439 No Longer Active Baltazar Childers MD Active PHENTERMINE HCL 37.5 MG ORAL TABLET Take one by mouth daily PHENTERMINE HCL 13222152734 No Longer Active Baltazar Childers MD Ac tive TIZANIDINE HCL 4 MG ORAL TABLET 1 daily as needed for muscle spa sm TIZANIDINE HCL 17823603669 No Longer Active Dawna Salazar RN Active [id number] 50-325-40 MG ORAL TABLET 1 fo ur times a day as needed for heacache [id number] 58481979850 Active KENDALL Juarez Active SUMATRIPTAN SUCCINATE 100 MG ORAL TABLET 1 tablet by m outh at onset of migraine as needed SUMATRIPTAN SUCCINATE 25538909530 Active Fanny Hudson MA Active LORATADINE 10 MG ORAL TABLET Take one by mouth daily LORATADINE 89087689134 Active Fanny Hudson MA Active OMEPRAZOLE 20 MG ORAL CAPSULE DELAYED RELEASE Take one by mouth jostin ly OMEPRAZOLE 38840214348 Active Baltazar Childers MD Active HYDROXYZINE HCL 25 MG ORAL TABLET Take one by mouth daily HYDROXYZINE HCL 19293866145 Active Baltazar Childers MD Active ALPRAZOLAM 1 MG ORAL TABLET 1 tablet by mouth daily at bedti me for restless leg ALPRAZOLAM 77165476376 Active Baltazar Childers MD Active METFORMIN HCL 1000 MG ORAL TABLET Take one by mouth twice daily METFORMIN HCL 30132231320 Active Baltazar Childers MD Active TIZANIDINE HCL 4 MG ORAL TABLET 1 daily as needed for muscle spa sm TIZANIDINE HCL 4 MG ORAL TABLET 020077 TIZANIDINE HCL Inactive PHENTERMINE HCL 37.5 MG ORAL TABLET Take one by mouth daily PHENTERMINE HCL 37.5 MG ORAL TABLET 291430 PHENTERMINE HCL Inac tive CRESTOR 10 MG ORAL TABLET 1 by mouth every day CRESTOR 10 MG ORAL TABLET 360323 ROSUVASTATIN CALCIUM Inactive LIPITOR 20 MG ORAL TABLET Take one by mouth daily in evening LIPITOR 20 MG ORAL TABLET 146672 ATORVASTATIN CALCIUM Inactive DEPO-TESTOSTERONE 200 MG/ML INTRAMUSCULAR SOLUTION as directed DEPO-TESTOSTERONE 200 MG/ML INTRAMUSCULAR SOLUTION 2955639 RUFINO TOSTERONE CYPIONATE Inactive NAPROXEN 500 MG ORAL TABLET 1 tablet by mouth twice daily NAPROXEN 500 MG ORAL TABLET 316651 NAPROXEN Inactive GABAPENTIN 300 MG ORAL CAPSULE 1 po qd x 2 days, then 1 po BID x 2 days, then 1 po TID GABAPENTIN 300 MG ORAL CAPSULE 138221 GABAP ENTIN Inactive ONETOUCH ULTRA BLUE IN VITRO STRIP Test twice a day 07/11/11 ONETOUCH ULTRA BLUE IN VITRO STRIP GLUCOSE BLOOD Inact amie NAPROXEN SODIUM 220 MG ORAL TABLET 1 three times a day as needed NAPROXEN SODIUM 220 MG ORAL TABLET 33689354984 NAPROXEN SODI UM Inactive TOUJEO SOLOSTAR 300 UNIT/ML SUBCUTANEOUS SOLUTION PEN- INJECTOR 10 units SC daily TOUJEO SOLOSTAR 300 UNIT/ML SUBCUTANEOUS SOLUTION PEN-INJECTOR INSULIN GLARGINE Inactive SUCRALFATE 1 GM ORAL TABLET 1 four times a day to coat the stoma SUCRALFATE 1 GM ORAL TABLET 574732 SUCRALFATE Inac tive GABAPENTIN 300 MG ORAL CAPSULE 1 three times a day 201 12/03/26 GABAPENTIN 300 MG ORAL CAPSULE 088294 GABAPENTIN Inactive TRAMADOL HCL 50 MG ORAL TABLET 1 twice a day as needed for pain TRAMADOL HCL 50 MG ORAL TABLET 667745 TRAMADOL HCL I nactive ZITHROMAX Z-ISAIAS 250 MG ORAL TABLET Take two tablets to day and then 1 tablet daily for 4 days ZITHROMAX Z-ISAIAS 250 MG ORAL TAB LET 488763 AZITHROMYCIN Inactive Immunizations Vaccine Administration Date Value [...] Fluarix, Agriflu(>= 18 yo)) Fluzone (>3 yrs.) [[id number]] Influenza, seasonal, inject able Seasonal influenza vaccine, injectable, containing preservative, for > 3 years old (Afluria, FluLaval, Fluzone, Fluvirin, Fluarix, Agriflu(>= 18 yo)) Fluzone (>3 yrs.) [[id number]] Influenza, seasonal, inject able Vital Signs Date [...] diastolic, second observation 84 m m[Hg] BP aslmeron blood pressure, diastolic, repeated by physician 87 [...] - Chem istry sodium, serum 136 mmol/L 564-180 4798/06/04 potassium, serum 4.9 mmol/L 3.5-5.2 chloride, serum 97 mmol/L 98-107 carbon dioxide, venous blood 35.3 mmol/L 21.0-32 .0 blood glucose 239 mg/dL 65-95 calcium, serum 10.6 mg/dL 8.5-10.1 urea nitrogen, blood 31 mg/dL 7-18 creatinine, serum 2.33 mg/dL 0.60-1.30 Estimated Glomerular Filtration Rate (calc) 23 (?) mL/min/1.73m2 = OR > 60 mL/min sodium, serum 141 mmol/L 203-645 9457/07/09 potassium, serum 4.9 mmol/L 3.5-5.2 chloride, serum [...] C - Chemistry sodium, serum 137 mmol/L 076-583 4025/10/17 potassium, serum 4.9 mmol/L 3.5-5.2 chloride, serum [...] Panel - Chemistry cholesterol, serum 156 mg/dL 035-953 5843/05/20 triglyceride, serum, fasting 283 mg/dL 30-200 HDL cholesterol, serum 53 mg/dL 32-60 LDL cholesterol, serum 46 mg/dL 0-130 hemoglobin A1C, blood, as % of total hemoglobin 8.7 % 4.3-6.0 sodium, serum 136 mmol/L 261-774 2861/05/20 potassium, serum 5.0 mmol/L 3.5-5.2 chloride, serum [...] Ordered Encounters Code Encounter Date Provider Facility CPT-49907 [id number] Vst-Est Level IV 16:19:48 CDT Charlie Childers MD [facility] CPT-00745 77835-Ehf Vst-Est Level IV 14:22:53 [employer] Charlie Childers MD [facility] CPT-81929 38376-Asw Vst-Est Level IV 15:48:51 [employer] Charlie Childers MD [facility] CPT-85618 29518-Qmm Vst-Est Level V 14:28:39 CDT Aneudy Childers MD [facility] CPT-66424 67898-Rxb Vst-Est Level IV 15:03:32 CDT Charlie Childers MD [facility] CPT-26507 55629-Lbf Vst-Est Level III 15:51:57 CDT Baltazar Childers MD [facility] CPT-10948 32101-Gtw Vst-Est Level IV 15:14:58 CDT Charlie Childers MD [facility] CPT-55341 67972-Heb Vst-Est Level IV 15:12:52 [employer] Charlie Childers MD [facility] CPT-61654 98187-Shc Vst-Est Level IV 15:30:55 [employer] Charlie Childers MD [facility] CPT-14674 81394-Lys Vst-Est Level IV 13:49:06 C DT Ann Martinez [facility] CPT-41472 Level 4 Est. Patient 17:26:08 [facility] 43345-Dmj Vst-Est Level V 14:26:27 CDT Aneudy Childers MD [facility] CPT-47757 Level 4 Est. Patient 17:05:37 CDT Baltazar Childers MD [facility] CPT-61448 Level 4 Est. Patient 16:21:19 [employer] Baltazar Childers MD [facility] CPT-84892 Level 4 Est. Patient 12:25:11 CDT Baltazar Childers MD [facility] CPT-85161 Level 4 Est. Patient 14:22:31 CDT Baltazar Childers MD [facility] CPT-44126 Level 4 Est. Patient 15:44:38 CDT Shonna Parker APRN [facility] CPT-55815 Level 4 Est. Patient 11:34:17 CDT Baltazar Childers MD [facility] CPT-03844 Level 3 Est. Patient 16:40:40 CDT Baltazar Childers MD [facility] CPT-22554 Level 4 Est. Patient 10:41:24 CDT Baltazar Childers MD [facility] CPT-36855 Level 4 Est. Patient 16:01:48 CDT Baltazar Childers MD [facility] CPT-03704 Level 4 Est. Patient 16:54:07 [employer] Baltazar Childers MD [facility] CPT-70579 Level 4 Est. Patient 15:42:12 CDT Baltazar Childers MD [facility] CPT-12209 Level 4 Est. Patient 11:29:55 CDT Baltazar Childers MD [facility] CPT-04290 Level 4 Est. Patient 14:15:19 CDT Baltazar Childers MD [facility] CPT-75788 Level 4 Est. Patient 12:20:13 CDT Baltazar Childers MD [facility] CPT-39866 Level 4 Est. Patient 14:52:45 [employer] Baltazar Childers MD [facility] CPT-88607 Level 4 Est. Patient 14:18:34 [employer] Baltazar Childers MD [facility] CPT-54549 Level 4 Est. Patient 15:18:29 CDT Baltazar Childers MD [facility] CPT-36567 Level 3 Est. Patient 12:45:34 CDT Baltazar Childers MD [facility] CPT-25799 Level 3 Est. Patient 10:10:11 CDT Baltazar Childers MD [facility] CPT-68884 Level 3 Est. Patient 14:07:50 CDT Baltazar Childers MD [facility] CPT-97578 Level 4 Est. Patient 12:26:10 [employer] Baltazar Childers MD [facility] CPT-52956 Level 4 Est. Patient 14:45:38 CDT Baltazar Childers MD [facility] CPT-38204 Level 4 New Patient 12:30:48 CDT Baltazar hinton MD [facility] Procedures Code Procedure Name Date Entry Date Standard Desc ription CPT-17481 Venipuncture Draw Fee 16:23:32 CDT CPT-HB2679N (3066F) Documentation of treatment for n ephropathy 16:19:46 CDT CPT-CL8309T (3060F) Positive microalbumi abimael test result documented and reviewed 16:19:46 CDT CPT-000 Give Appropriate Flu Vaccine 14:07:28 [employer] 2 CPT-98386 Venipuncture Draw Fee 16:24:55 [employer] CPT-16368 62700 - Immun Admin 1 vac 14:54:52 [employer] 2019 CPT-24326 Fluzone Quadrivalent (Flu) 0.5 mL 10Pk S yringe IM 14:54:52 [employer] CPT-CS9401S (4013F) Statin therapy prescribed or cur rently being taken 14:07:28 [employer] CPT-NL9202A (3066F) Documentation of treatment for n ephropathy 14:07:28 [employer] CPT-09093 Venipuncture Draw Fee 17:47:23 CDT CPT-94275 4M Drug Screen cup test, Multi-panel, urine 2018 14:28:39 CDT CPT-88313 Venipuncture Draw Fee 15:19:00 CDT CPT-000 Give Appropriate Flu Vaccine 12:25:14 CDT 2 CPT-35559 First Vx - Ix admin via ID I M or jet injects without counseling by physician 13:08:59 CDT CPT-05666 Fluzone Quadrivalent Intramuscular Suspe nsion 0.5 ML 13:08:59 CDT CPT-43826 Venipuncture Draw Fee 12:04:12 CDT CPT-99159 Lipid - LAB USE ONLY 17:39:15 [employer] 9 CPT-99150 HGBA1C - LAB USE ONLY 17:39:15 [employer] CPT-22361 CMP - LAB USE ONLY 17:39:14 [employer] CPT-22981 Venipuncture Draw Fee 17:39:14 [employer] CPT-91213 First Vx - Ix admin via ID I M or jet injects without counseling by physician 16:55:17 [employer] CPT-94372 Fluzone Quadrivalent Intramuscular Suspe nsion 0.5 ML 16:55:17 [employer] CPT-55768 Renal Panel - LAB USE ONLY 17:39:20 CDT 201 10/31/07 CPT-72392 CBC - LAB USE ONLY 17:39:20 CDT CPT-19818 Venipuncture Draw Fee 17:39:20 CDT CPT-10187 Venipuncture Draw Fee 14:33:30 CDT CPT-51853 Renal Panel - LAB USE ONLY 14:33:30 CDT 201 10/31/07 CPT-43639 CBC - LAB USE ONLY 14:33:29 CDT CPT-03935 Venipuncture Draw Fee 14:50:21 [employer] CPT-93579 Immunization Single Admin 17:35:35 CDT 2014 CPT-03881 Fluzone Quadrivalent preservative free ( >=3yrs.) 17:35:35 CDT CPT-17029 Venipuncture Draw Fee 12:10:27 [employer] CPT-76472 Fluzone Quadrivalent Intramuscular Suspe nsion 0.5 ML 10:49:13 CDT CPT-72671 First Vx Component - Ix admi n via ID IM or jet inj without physician counseling 15:17:19 [employer] CPT-85294 Pneumovax 23 15:17:19 [employer] CPT-07348 Pneumovax 14:52:45 [employer] CPT-43468 Venipuncture Draw Fee 14:06:30 [employer] CPT-000 Give Appropriate Flu Vaccine 14:18:34 [employer] 2 CPT-90371 Administration single or combination vac cine inc oral 14:46:00 [employer] CPT-92592 Influenza split virus > age 3 14:46:00 [employer] CPT-OV Office Visit 19:13:16 CDT CPT-55597 Zostavax 18:41:56 CDT CPT-42698 Administration single or combination vac cine inc oral 12:56:39 CDT CPT-22591 Zoster Vaccine (Zostavax) 12:56:39 CDT 2012 CPT-46675 Venipuncture Draw Fee 10:58:57 CDT CPT-60655 Sono pelvis non OB uterus ovaries cervix 17:45:04 CDT CPT-44357 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
--- OUTSIDE RECORDS SUMMARY | 2019-10-27 11:28 | XMS REPORT | Clinical Summary ---
Author Author Admin, [employer] Address Unknown Phone Unavailable Allergies, Adverse Reactions, [...] Morbid obesity due to excess calories 278.01 [facility] t Baltazar Childers MD Morbid obesity Obesity Class II (BMI 35-39.9) 278.01 Refinement 10/26 Baltazar Childers MD Morbid obesity Morbid obesity due to excess calories 278.01 [facility] t Baltazar Childers MD Morbid obesity Obesity Class II (BMI 35-39.9) 278.01 Refinement 01/19 Baltazar Childers MD Morbid obesity Morbid obesity due to excess calories 278.01 [facility] t Baltazar Childers MD Morbid obesity Obesity [...] ronary atherosclerosis of unspecified type of vessel, [place] or graft OTH NONSPC ABN FINDNG RAD&OTH [...] 1 tab every 6-8 hours PRN HYDROCODONE-ACETAMINOPHEN 00221591078 Active Baltazar silverman MD Active SUCRALFATE 1 GM TABS 1 four times a day 1 hour before meals and at bedtime SUCRALFATE 26523729957 Active Fanny Hudson MA Active INSULIN SYRINGE 27G X 1/2" 0.5 ML use 1 as needed. INSULIN SYRINGE- NEEDLE U-100 63532140249 Active Fanny Hudson MA Active MAGNESIUM OXIDE 400 MG ORAL CAPSULE 1 po bid MAGNESIUM OXIDE 50768255162 Active Fadumo Ruiz Active HUMALOG 100 UNIT/ML SUBCUTANEOUS SOLUTION Take 10 units with every meal INSULIN LISPRO 27637137628 Active Baltazar Childers MD Active NOVOLOG 100 UNIT/ML SUBCUTANEOUS SOLUTION 5 units with each meal. 2 INSULIN ASPART 49928784713 No Longer Active Fanny Hudson MA Activ e ONGLYZA 2.5 MG TABS TAKE 1 TABLET BY MOUTH EVERY DAY FOR DIABETES 2 SAXAGLIPTIN HCL 82075458121 Active Baltazar Childers MD Active GLIPIZIDE 10MG TABLETS TAKE 2 TABLETS BY MOUTH TWICE DAILY GLIPIZIDE 66450032726 Active Baltazar Chliders MD Active TRUE METRIX B/G TEST STRIPS 25'S TEST BLOOD SUGAR TWICE DAILY 03/02 GLUCOSE BLOOD 39637317150 Active KENDALL Juarez Active LEVOTHYROXINE 0.112MG (112MCG) TABS TAKE 1 TABLET BY MOUTH EVERY DAY LEVOTHYROXINE SODIUM 34155708940 Active Baltazar Childers MD Active AMLODIPINE BESYLATE 5MG TABLETS TAKE 1 TABLET BY MOUTH EVERY DAY FOR HYPERTENSION AMLODIPINE BESYLATE 97600658061 Active Ro yvan Childers MD Active LANTUS SOLOSTAR 100 UNIT/ML SUBCUTANEOUS SOLUTION PEN- INJECTOR 20 units am and 13 units at night INSULIN GLARGINE 39020221027 Active Baltazar Childers MD Active TRAMADOL HCL 50 MG ORAL TABLET 1 twice a day as needed for pain TRAMADOL HCL 64762039460 No Longer Active Baltazar Childers MD Active ROBAXIN 500 MG ORAL TABLET Take 1.5 (one and one half) tabs once daily METHOCARBAMOL 25237692883 Active Baltazar Childers MD Active TRUE METRIX AIR GLUCOSE METER DEVICE Use as directed BLOOD GLUCOSE MONITORING SUPPL 47510987842 Active Baltazar Childers MD Activ e NORTRIPTYLINE HCL 50 MG ORAL CAPSULE 1 twice a day for neuropathy 2 NORTRIPTYLINE HCL 37790949194 Active Baltazar Childers MD Acti ve ASPIRIN 81 MG TBEC Take one (1) tablet by mouth daily ASPIRIN 56911753849 Active Baltazar Childers MD Active GABAPENTIN 300 MG ORAL CAPSULE 1 three times a day 201 12/03/26 GABAPENTIN 77080577109 No Longer Active Baltazar Childers MD Activ e LISINOPRIL 20 MG ORAL TABLET 1 tablet by mouth daily at night 2016 LISINOPRIL 83555662405 Active Baltazar Childers MD Active ZITHROMAX Z-ISAIAS 250 MG ORAL TABLET Take two tablets to day and then 1 tablet daily for 4 days AZITHROMYCIN 63272815920 No Longer A ctive Baltazar Childers MD Active SUCRALFATE 1 GM ORAL TABLET 1 four times a day to coat the stoma ch SUCRALFATE 61202056795 No Longer Active Baltazar Childers MD Active PEN NEEDLES 31G X 6 MM use 1 daily INSULIN PEN NE EDLE 81934151620 Active KENDALL Juarez Active TOUJEO SOLOSTAR 300 UNIT/ML SUBCUTANEOUS SOLUTION PEN- INJECTOR 10 units SC daily INSULIN GLARGINE 22531689209 No Longer Active Rola ARGUETA Active NAPROXEN SODIUM 220 MG ORAL TABLET 1 three times a day as needed NAPROXEN SODIUM 20179797186 No Longer Active Baltazar Childers MD Active ATORVASTATIN CALCIUM 20 MG ORAL TABLET Take 1 tab daily ATORVASTATIN CALCIUM 30126045188 Active Baltazar Childers MD A ctive FUROSEMIDE 40 MG ORAL TABLET Take one by mouth daily FUROSEMIDE 89066517893 Active Baltazar Childres MD Active LISINOPRIL 20 MG ORAL TABLET Take one by mouth daily at bedtime LISINOPRIL 87033915858 No Longer Active Baltazar Childers MD Active ONETOUCH ULTRA BLUE IN VITRO STRIP Test twice a day 07/11/11 GLUCOSE BLOOD 92759261268 No Longer Active Baltazar Childers MD Acti ve TRUEPLUS LANCETS 33G Test twice a day LANCETS 4824636 0849 Active KENDALL Juarez Active TRUEDRAW LANCING DEVICE Test twice a day LANCET DEVICES 37100970999 Active Baltazar Childers MD Active TRUETRACK BLOOD GLUCOSE w/Device KIT Test twice a day BLOOD GLUCOSE MONITORING SUPPL 48738053845 Active Baltazar Childers MD Activ e GABAPENTIN 300 MG ORAL CAPSULE 1 po qd x 2 days, then 1 po BID x 2 days, then 1 po TID GABAPENTIN 49513887029 No Longer Active Baltazar Childers MD Active NAPROXEN 500 MG ORAL TABLET 1 tablet by mouth twice daily NAPROXEN 98564804682 No Longer Active Baltazar Childers MD Active PROAIR HFA 108 (90 Base) MCG/ACT INHALATION AEROSOL SO LUTION 2 puffs four times a day as needed ALBUTEROL SULFATE 44992785738 Active R gilberto Childers MD Active DEPO-TESTOSTERONE 200 MG/ML INTRAMUSCULAR SOLUTION as directed TESTOSTERONE CYPIONATE 61690587863 No Longer Active Baltazar Childers MD Active LIPITOR 20 MG ORAL TABLET Take one by mouth daily in evening ATORVASTATIN CALCIUM 96677518674 No Longer Active Baltazar Childers MD Active CRESTOR 10 MG ORAL TABLET 1 by mouth every day ROSUVASTATIN CALCIUM 05551722498 No Longer Active Baltazar Childers MD Active PHENTERMINE HCL 37.5 MG ORAL TABLET Take one by mouth daily PHENTERMINE HCL 63792498039 No Longer Active Baltazar Childers MD Ac tive TIZANIDINE HCL 4 MG ORAL TABLET 1 daily as needed for muscle spa sm TIZANIDINE HCL 50855216096 No Longer Active Dawna Salazar RN Active [id number] 50-325-40 MG ORAL TABLET 1 fo ur times a day as needed for heacache [id number] 84007619409 Active KENDALL Juarez Active SUMATRIPTAN SUCCINATE 100 MG ORAL TABLET 1 tablet by m outh at onset of migraine as needed SUMATRIPTAN SUCCINATE 49450792184 Active Fanny Hudsno MA Active LORATADINE 10 MG ORAL TABLET Take one by mouth daily LORATADINE 11659523256 Active Fanny Hudson MA Active OMEPRAZOLE 20 MG ORAL CAPSULE DELAYED RELEASE Take one by mouth jostin ly OMEPRAZOLE 76688862729 Active Baltazar Childers MD Active HYDROXYZINE HCL 25 MG ORAL TABLET Take one by mouth daily HYDROXYZINE HCL 24603295670 Active Baltazar Childers MD Active ALPRAZOLAM 1 MG ORAL TABLET 1 tablet by mouth daily at bedti me for restless leg ALPRAZOLAM 11979642066 Active Baltazar Childers MD Active METFORMIN HCL 1000 MG ORAL TABLET Take one by mouth twice daily METFORMIN HCL 79115836821 Active Baltazar Childers MD Active NAPROXEN 500 MG ORAL TABLET 1 tablet by mouth twice daily NAPROXEN 500 MG ORAL TABLET 046930 NAPROXEN Inactive PHENTERMINE HCL 37.5 MG ORAL TABLET Take one by mouth daily PHENTERMINE HCL 37.5 MG ORAL TABLET 290472 PHENTERMINE HCL Inac tive SUCRALFATE 1 GM ORAL TABLET 1 four times a day to coat the stoma ch SUCRALFATE 1 GM ORAL TABLET 638174 SUCRALFATE Inac tive NAPROXEN SODIUM 220 MG ORAL TABLET 1 three times a day as needed NAPROXEN SODIUM 220 MG ORAL TABLET 33182335426 NAPROXEN SODI UM Inactive TRAMADOL HCL 50 MG ORAL TABLET 1 twice a day as needed for pain TRAMADOL HCL 50 MG ORAL TABLET 791243 TRAMADOL HCL I nactive TIZANIDINE HCL 4 MG ORAL TABLET 1 daily as needed for muscle spa sm TIZANIDINE HCL 4 MG ORAL TABLET 903074 TIZANIDINE HCL Inactive GABAPENTIN 300 MG ORAL CAPSULE 1 po qd x 2 days, then 1 po BID x 2 days, then 1 po TID GABAPENTIN 300 MG ORAL CAPSULE 809385 GABAP ENTIN Inactive GABAPENTIN 300 MG ORAL CAPSULE 1 three times a day 201 12/03/26 GABAPENTIN 300 MG ORAL CAPSULE 046076 GABAPENTIN Inactive LIPITOR 20 MG ORAL TABLET Take one by mouth daily in evening LIPITOR 20 MG ORAL TABLET 251138 ATORVASTATIN CALCIUM Inactive ONETOUCH ULTRA BLUE IN VITRO STRIP Test twice a day 07/11/11 ONETOUCH ULTRA BLUE IN VITRO STRIP GLUCOSE BLOOD Inact amie ZITHROMAX Z-ISAIAS 250 MG ORAL TABLET Take two tablets to day and then 1 tablet daily for 4 days ZITHROMAX Z-ISAIAS 250 MG ORAL TAB LET 467011 AZITHROMYCIN Inactive CRESTOR 10 MG ORAL TABLET 1 by mouth every day CRESTOR 10 MG ORAL TABLET 504789 ROSUVASTATIN CALCIUM Inactive DEPO-TESTOSTERONE 200 MG/ML INTRAMUSCULAR SOLUTION as directed DEPO-TESTOSTERONE 200 MG/ML INTRAMUSCULAR SOLUTION 9013137 RUFINO TOSTERONE CYPIONATE Inactive TOUJEMelinda SOLOSTAR 300 UNIT/ML SUBCUTANEOUS SOLUTION PEN- INJECTOR 10 units SC daily CELINA POWERSTARSHA 300 UNIT/ML SUBCUTANEOUS SOLUTION PEN-INJECTOR INSULIN GLARGINE Inactive Immunizations Vaccine Administration Date Value Standard [...] Fluarix, Agriflu(>= 18 yo)) Fluzone (>3 yrs.) [[id number]] Influenza, seasonal, inject able Seasonal influenza vaccine, injectable, containing preservative, for > 3 years old (Afluria, FluLaval, Fluzone, Fluvirin, Fluarix, Agriflu(>= 18 yo)) Fluzone (>3 yrs.) [[id number]] Influenza, seasonal, inject able Vital Signs Date [...] - Chem istry sodium, serum 136 mmol/L 228-094 1543/06/04 potassium, serum 4.9 mmol/L 3.5-5.2 chloride, serum 97 mmol/L 98-107 carbon dioxide, venous blood 35.3 mmol/L 21.0-32 .0 blood glucose 239 mg/dL 65-95 calcium, serum 10.6 mg/dL 8.5-10.1 urea nitrogen, blood 31 mg/dL 7-18 creatinine, serum 2.33 mg/dL 0.60-1.30 Estimated Glomerular Filtration Rate (calc) 23 (?) mL/min/1.73m2 = OR > 60 mL/min sodium, serum 141 mmol/L 092-416 6370/07/09 potassium, serum 4.9 mmol/L 3.5-5.2 chloride, serum [...] C - Chemistry sodium, serum 137 mmol/L 620-882 4482/10/17 potassium, serum 4.9 mmol/L 3.5-5.2 chloride, serum [...] urine volume >30 Abnormal mg/g mg/L 0-29 Office Visit: pap., tumor - Toxicology drug screen, urine, qualitative Ordered Encounters Code Encounter Date Provider Facility CPT-79271 [id number] Vst-Est Level IV 16:19:48 CDT Charlie Childers MD [facility] CPT-44701 [id number] Vst-Est Level IV 14:22:53 [employer] Charlie Childers MD [facility] CPT-61104 26339-Zfr Vst-Est Level IV 15:48:51 [employer] Charlie Childers MD [facility] CPT-15622 13460-Zwt Vst-Est Level V 14:28:39 CDT Aneudy Childers MD [facility] CPT-45343 59645-Kca Vst-Est Level IV 15:03:32 CDT Charlie Childers MD [facility] CPT-88499 89107-Gfi Vst-Est Level III 15:51:57 CDT Baltazar Childers MD [facility] CPT-16693 48614-Ejh Vst-Est Level IV 15:14:58 CDT Charlie Childers MD [facility] CPT-72728 38802-Vmr Vst-Est Level IV 15:12:52 [employer] Charlie Childers MD [facility] CPT-51927 83483-Aka Vst-Est Level IV 15:30:55 [employer] Charlie Childers MD [facility] CPT-35833 38729-Khc Vst-Est Level IV 13:49:06 C DT Ann [facility] CPT-21998 Level 4 Est. Patient 17:26:08 [facility]PT-90366 99436-Zfm Vst-Est Level V 14:26:27 CDT Aneudy Childers MD [facility] CPT-94712 Level 4 Est. Patient 17:05:37 CDT Baltazar Childers MD [facility] CPT-71454 Level 4 Est. Patient 16:21:19 [employer] Baltazar Childers MD [facility] CPT-15584 Level 4 Est. Patient 12:25:11 CDT Baltazar Childers MD [facility] CPT-69229 Level 4 Est. Patient 14:22:31 CDT Baltazar Childers MD [facility] CPT-71457 Level 4 Est. Patient 15:44:38 CDT Shonna Parker APRN [facility] CPT-22442 Level 4 Est. Patient 11:34:17 CDT Baltazar Childers MD [facility]-11590 Level 3 Est. Patient 16:40:40 CDT Baltazar Childers MD [facility]-74125 Level 4 Est. Patient 10:41:24 CDT Baltazar Childers MD [facility]-28407 Level 4 Est. Patient 16:01:48 CDT Baltazar Childers MD [facility]-27699 Level 4 Est. Patient 16:54:07 [employer] Baltazar Childers MD [facility]-92270 Level 4 Est. Patient 15:42:12 CDT Baltazar Childers MD [facility] CPT-61279 Level 4 Est. Patient 11:29:55 CDT Baltazar Childers MD [facility] CPT-10558 Level 4 Est. Patient 14:15:19 CDT Baltazar Childers MD [facility] CPT-93024 Level 4 Est. Patient 12:20:13 CDT Baltazar Childers MD [facility] CPT-98507 Level 4 Est. Patient 14:52:45 [employer] Baltazar Childers MD [facility] CPT-14272 Level 4 Est. Patient 14:18:34 [employer] Baltazar Childers MD [facility] CPT-47167 Level 4 Est. Patient 15:18:29 CDT Baltazar Childers MD [facility] CPT-54627 Level 3 Est. Patient 12:45:34 CDT Baltazar Childers MD [facility]-72505 Level 3 Est. Patient 10:10:11 CDT Baltazar Childers MD [facility] CPT-52200 Level 3 Est. Patient 14:07:50 CDT Baltazar Childers MD [facility] CPT-25647 Level 4 Est. Patient 12:26:10 [employer] Baltazar Childers MD [facility] CPT-20102 Level 4 Est. Patient 14:45:38 CDT Baltazar Childers MD [facility] CPT-67447 Level 4 New Patient 12:30:48 CDT Baltazar hinton MD [facility] Procedures Code Procedure Name Date Entry Date Standard Desc ription CPT-22361 Venipuncture Draw Fee 16:23:32 CDT CPT-YL6452F (3066F) Documentation of treatment for n ephropathy 16:19:46 CDT CPT-BG8131C (3060F) Positive microalbumi abimael test result documented and reviewed 16:19:46 CDT CPT-000 Give Appropriate Flu Vaccine 14:07:28 [employer] CPT-38795 Venipuncture Draw Fee 16:24:55 [employer] CPT-14848 38357 - Immun Admin 1 vac 14:54:52 [employer] 2019 CPT-95926 Fluzone Quadrivalent (Flu) 0.5 mL 10Pk S yringe IM 14:54:52 [employer] CPT-OP8404U (4013F) Statin therapy prescribed or cur rently being taken 14:07:28 [employer] CPT-YH5810R (3066F) Documentation of treatment for n ephropathy 14:07:28 [employer] CPT-92429 Venipuncture Draw Fee 17:47:23 CDT CPT-98044 4M Drug Screen cup test, Multi-panel, urine 2018 14:28:39 CDT CPT-08943 Venipuncture Draw Fee 15:19:00 CDT CPT-000 Give Appropriate Flu Vaccine 12:25:14 CDT 2 CPT-70806 First Vx - Ix admin via ID I M or jet injects without counseling by physician 13:08:59 CDT CPT-53994 Fluzone Quadrivalent Intramuscular Suspe nsion 0.5 ML 13:08:59 CDT CPT-96842 Venipuncture Draw Fee 12:04:12 CDT CPT-32340 Lipid - LAB USE ONLY 17:39:15 [employer] 9 CPT-38602 HGBA1C - LAB USE ONLY 17:39:15 [employer] CPT-46214 CMP - LAB USE ONLY 17:39:14 [employer] CPT-78701 Venipuncture Draw Fee 17:39:14 [employer] CPT-93392 First Vx - Ix admin via ID I M or jet injects without counseling by physician 16:55:17 [employer] CPT-43612 Fluzone Quadrivalent Intramuscular Suspe nsion 0.5 ML 16:55:17 [employer] CPT-53834 Renal Panel - LAB USE ONLY 17:39:20 CDT 201 10/31/07 CPT-51118 CBC - LAB USE ONLY 17:39:20 CDT CPT-18492 Venipuncture Draw Fee 17:39:20 CDT CPT-26010 Venipuncture Draw Fee 14:33:30 CDT CPT-66427 Renal Panel - LAB USE ONLY 14:33:30 CDT 201 10/31/07 CPT-52797 CBC - LAB USE ONLY 14:33:29 CDT CPT-51058 Venipuncture Draw Fee 14:50:21 [employer] CPT-75681 Immunization Single Admin 17:35:35 CDT 2014 CPT-05826 Fluzone Quadrivalent preservative free ( >=3yrs.) 17:35:35 CDT CPT-77149 Venipuncture Draw Fee 12:10:27 [employer] CPT-66055 Fluzone Quadrivalent Intramuscular Suspe nsion 0.5 ML 10:49:13 CDT CPT-72262 First Vx Component - Ix admi n via ID IM or jet inj without physician counseling 15:17:19 [employer] CPT-44384 Pneumovax 15:17:19 [employer] CPT-35307 Pneumovax 14:52:45 [employer] CPT-64396 Venipuncture Draw Fee 14:06:30 [employer] CPT-000 Give Appropriate Flu Vaccine 14:18:34 [employer] 2 CPT-56069 Administration single or combination vac cine inc oral 14:46:00 [employer] CPT-63605 Influenza split virus > age 3 14:46:00 [employer] CPT-OV Office Visit 19:13:16 CDT CPT-06262 Zostavax 18:41:56 CDT CPT-60558 Administration single or combination vac cine inc oral 12:56:39 CDT CPT-09639 Zoster Vaccine (Zostavax) 12:56:39 CDT 2012 CPT-38376 Venipuncture Draw Fee 10:58:57 CDT CPT-80833 Sono pelvis non OB uterus ovaries cervix 17:45:04 CDT CPT-54078 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
--- OUTSIDE RECORDS SUMMARY | 2019-10-27 11:29 | XMS REPORT | Clinical Summary ---
Author Author Admin, Elba Lance PopSeal Address Unknown Phone Unavailable Allergies, Adverse Reactions, [...] Morbid obesity due to excess calories 278.01 [facility] t Baltazar Chiledrs MD Morbid obesity Obesity Class II (BMI 35-39.9) 278.01 Refinement 10/26 Baltazar Childers MD Morbid obesity Morbid obesity due to excess calories 278.01 [facility] t Baltazar Childers MD Morbid obesity Obesity Class II (BMI 35-39.9) 278.01 Refinement 01/19 Baltazar Childers MD Morbid obesity Morbid obesity due to excess calories 278.01 [facility] t Baltazar Childers MD Morbid obesity Obesity [...] ronary atherosclerosis of unspecified type of vessel, viejas or graft OTH NONSPC ABN FINDNG RAD&OTH [...] 1 tab every 6-8 hours PRN HYDROCODONE-ACETAMINOPHEN 44415323774 Active Baltazar silverman MD Active SUCRALFATE 1 GM TABS 1 four times a day 1 hour before meals and at bedtime SUCRALFATE 41813574893 Active Fanny Hudson MA Active INSULIN SYRINGE 27G X 1/2" 0.5 ML use 1 as needed. INSULIN SYRINGE- NEEDLE U-100 54934216970 Active Fanny Hudson MA Active MAGNESIUM OXIDE 400 MG ORAL CAPSULE 1 po bid MAGNESIUM OXIDE 90733944416 Active Fadumo Ruiz Active HUMALOG 100 UNIT/ML SUBCUTANEOUS SOLUTION Take 10 units with every meal INSULIN LISPRO 98620737995 Active Baltazar Childers MD Active NOVOLOG 100 UNIT/ML SUBCUTANEOUS SOLUTION 5 units with each meal. 2 INSULIN ASPART 05625827142 No Longer Active Fanny Hudson MA Activ e ONGLYZA 2.5 MG TABS TAKE 1 TABLET BY MOUTH EVERY DAY FOR DIABETES 2 SAXAGLIPTIN HCL 66801500989 Active Baltazar Childers MD Active GLIPIZIDE 10MG TABLETS TAKE 2 TABLETS BY MOUTH TWICE DAILY GLIPIZIDE 90861038967 Active Baltazar Childers MD Active TRUE METRIX B/G TEST STRIPS 25'S TEST BLOOD SUGAR TWICE DAILY 03/02 GLUCOSE BLOOD 55597770071 Active KENDALL Juarez Active LEVOTHYROXINE 0.112MG (112MCG) TABS TAKE 1 TABLET BY MOUTH EVERY DAY LEVOTHYROXINE SODIUM 86867805685 Active Baltazar Childers MD Active AMLODIPINE BESYLATE 5MG TABLETS TAKE 1 TABLET BY MOUTH EVERY DAY FOR HYPERTENSION AMLODIPINE BESYLATE 43821880879 Active Ro yvan Childers MD Active LANTUS SOLOSTAR 100 UNIT/ML SUBCUTANEOUS SOLUTION PEN- INJECTOR 20 units am and 13 units at night INSULIN GLARGINE 05859482499 Active Baltazar Childers MD Active TRAMADOL HCL 50 MG ORAL TABLET 1 twice a day as needed for pain TRAMADOL HCL 38091466399 No Longer Active Baltazar Childers MD Active ROBAXIN 500 MG ORAL TABLET Take 1.5 (one and one half) tabs once daily METHOCARBAMOL 76573625259 Active Baltazar Childers MD Active TRUE METRIX AIR GLUCOSE METER DEVICE Use as directed BLOOD GLUCOSE MONITORING SUPPL 20007943984 Active Baltazar Childers MD Activ e NORTRIPTYLINE HCL 50 MG ORAL CAPSULE 1 twice a day for neuropathy 2 NORTRIPTYLINE HCL 86671720409 Active Baltazar Childers MD Acti ve ASPIRIN 81 MG TBEC Take one (1) tablet by mouth daily ASPIRIN 28442758309 Active Baltazar Childers MD Active GABAPENTIN 300 MG ORAL CAPSULE 1 three times a day 201 12/03/26 GABAPENTIN 80771226803 No Longer Active Baltazar Childers MD Activ e LISINOPRIL 20 MG ORAL TABLET 1 tablet by mouth daily at night 2016 LISINOPRIL 90923693366 Active Baltazar Childers MD Active ZITHROMAX Z-ISAIAS 250 MG ORAL TABLET Take two tablets to day and then 1 tablet daily for 4 days AZITHROMYCIN 78429794993 No Longer A ctive Baltazar Childers MD Active SUCRALFATE 1 GM ORAL TABLET 1 four times a day to coat the stoma ch SUCRALFATE 55688869588 No Longer Active Baltazar Childers MD Active PEN NEEDLES 31G X 6 MM use 1 daily INSULIN PEN NE EDLE 98740545536 Active KENDALL Juarez Active TOUJEO SOLOSTAR 300 UNIT/ML SUBCUTANEOUS SOLUTION PEN- INJECTOR 10 units SC daily INSULIN GLARGINE 32909335860 No Longer Active Rola ARGUETA Active NAPROXEN SODIUM 220 MG ORAL TABLET 1 three times a day as needed NAPROXEN SODIUM 60768180084 No Longer Active Baltazar Childers MD Active ATORVASTATIN CALCIUM 20 MG ORAL TABLET Take 1 tab daily ATORVASTATIN CALCIUM 94667555561 Active Baltazar Childers MD A ctive FUROSEMIDE 40 MG ORAL TABLET Take one by mouth daily FUROSEMIDE 41881719384 Active Baltazar Childers MD Active LISINOPRIL 20 MG ORAL TABLET Take one by mouth daily at bedtime LISINOPRIL 93961937401 No Longer Active Baltazar Childers MD Active ONETOUCH ULTRA BLUE IN VITRO STRIP Test twice a day 07/11/11 GLUCOSE BLOOD 21848806739 No Longer Active Baltazar Childers MD Acti ve TRUEPLUS LANCETS 33G Test twice a day LANCETS 2240498 8469 Active KENDALL Juarez Active TRUEDRAW LANCING DEVICE Test twice a day LANCET DEVICES 84740665029 Active Baltazar Childers MD Active TRUETRACK BLOOD GLUCOSE w/Device KIT Test twice a day BLOOD GLUCOSE MONITORING SUPPL 27647934983 Active Baltazar Childers MD Activ e GABAPENTIN 300 MG ORAL CAPSULE 1 po qd x 2 days, then 1 po BID x 2 days, then 1 po TID GABAPENTIN 17120984029 No Longer Active Baltazar Childers MD Active NAPROXEN 500 MG ORAL TABLET 1 tablet by mouth twice daily NAPROXEN 96378405723 No Longer Active Baltazar Childers MD Active PROAIR HFA 108 (90 Base) MCG/ACT INHALATION AEROSOL SO LUTION 2 puffs four times a day as needed ALBUTEROL SULFATE 63773184700 Active R gilberto Childers MD Active DEPO-TESTOSTERONE 200 MG/ML INTRAMUSCULAR SOLUTION as directed TESTOSTERONE CYPIONATE 84648962256 No Longer Active Baltazar Childers MD Active LIPITOR 20 MG ORAL TABLET Take one by mouth daily in evening ATORVASTATIN CALCIUM 85024354821 No Longer Active Baltazar Childers MD Active CRESTOR 10 MG ORAL TABLET 1 by mouth every day ROSUVASTATIN CALCIUM 16860855067 No Longer Active Baltazar Childers MD Active PHENTERMINE HCL 37.5 MG ORAL TABLET Take one by mouth daily PHENTERMINE HCL 05554061872 No Longer Active Baltazar Childers MD Ac tive TIZANIDINE HCL 4 MG ORAL TABLET 1 daily as needed for muscle spa sm TIZANIDINE HCL 79158830669 No Longer Active Dawna Salazar RN Active [id number] 50-325-40 MG ORAL TABLET 1 fo ur times a day as needed for heacache [id number] 35708767239 Active KENDALL Juarez Active SUMATRIPTAN SUCCINATE 100 MG ORAL TABLET 1 tablet by m outh at onset of migraine as needed SUMATRIPTAN SUCCINATE 21558512043 Active Fanny Hudson MA Active LORATADINE 10 MG ORAL TABLET Take one by mouth daily LORATADINE 64575146229 Active Fanny Hudson MA Active OMEPRAZOLE 20 MG ORAL CAPSULE DELAYED RELEASE Take one by mouth jostin ly OMEPRAZOLE 88446489399 Active Baltazar Childers MD Active HYDROXYZINE HCL 25 MG ORAL TABLET Take one by mouth daily HYDROXYZINE HCL 64374190391 Active Baltazar Childers MD Active ALPRAZOLAM 1 MG ORAL TABLET 1 tablet by mouth daily at bedti me for restless leg ALPRAZOLAM 73704650363 Active Baltazar Childers MD Active METFORMIN HCL 1000 MG ORAL TABLET Take one by mouth twice daily METFORMIN HCL 89573740356 Active Baltazar Childers MD Active NAPROXEN 500 MG ORAL TABLET 1 tablet by mouth twice daily NAPROXEN 500 MG ORAL TABLET 149259 NAPROXEN Inactive PHENTERMINE HCL 37.5 MG ORAL TABLET Take one by mouth daily PHENTERMINE HCL 37.5 MG ORAL TABLET 789834 PHENTERMINE HCL Inac tive SUCRALFATE 1 GM ORAL TABLET 1 four times a day to coat the stoma ch SUCRALFATE 1 GM ORAL TABLET 729107 SUCRALFATE Inac tive NAPROXEN SODIUM 220 MG ORAL TABLET 1 three times a day as needed NAPROXEN SODIUM 220 MG ORAL TABLET 51141379448 NAPROXEN SODI UM Inactive TRAMADOL HCL 50 MG ORAL TABLET 1 twice a day as needed for pain TRAMADOL HCL 50 MG ORAL TABLET 036035 TRAMADOL HCL I nactive TIZANIDINE HCL 4 MG ORAL TABLET 1 daily as needed for muscle spa sm TIZANIDINE HCL 4 MG ORAL TABLET 296005 TIZANIDINE HCL Inactive GABAPENTIN 300 MG ORAL CAPSULE 1 po qd x 2 days, then 1 po BID x 2 days, then 1 po TID GABAPENTIN 300 MG ORAL CAPSULE 483535 GABAP ENTIN Inactive GABAPENTIN 300 MG ORAL CAPSULE 1 three times a day 201 12/03/26 GABAPENTIN 300 MG ORAL CAPSULE 544828 GABAPENTIN Inactive LIPITOR 20 MG ORAL TABLET Take one by mouth daily in evening LIPITOR 20 MG ORAL TABLET 477833 ATORVASTATIN CALCIUM Inactive ONETOUCH ULTRA BLUE IN VITRO STRIP Test twice a day 07/11/11 ONETOUCH ULTRA BLUE IN VITRO STRIP GLUCOSE BLOOD Inact amie ZITHROMAX Z-ISAIAS 250 MG ORAL TABLET Take two tablets to day and then 1 tablet daily for 4 days ZITHROMAX Z-ISAIAS 250 MG ORAL TAB LET 243667 AZITHROMYCIN Inactive CRESTOR 10 MG ORAL TABLET 1 by mouth every day CRESTOR 10 MG ORAL TABLET 661727 ROSUVASTATIN CALCIUM Inactive DEPO-TESTOSTERONE 200 MG/ML INTRAMUSCULAR SOLUTION as directed DEPO-TESTOSTERONE 200 MG/ML INTRAMUSCULAR SOLUTION 1882573 RUFINO TOSTERONE CYPIONATE Inactive TOUJEMelinda SOLOSTAR 300 [...] Fluarix, Agriflu(>= 18 yo)) Fluzone (>3 yrs.) [[id number]] Influenza, seasonal, inject able Seasonal influenza vaccine, injectable, containing preservative, for > 3 years old (Afluria, FluLaval, Fluzone, Fluvirin, Fluarix, Agriflu(>= 18 yo)) Fluzone (>3 yrs.) [[id number]] Influenza, seasonal, inject able Vital Signs Date [...] - Chem istry sodium, serum 136 mmol/L 779-098 3785/06/04 potassium, serum 4.9 mmol/L 3.5-5.2 chloride, serum 97 mmol/L 98-107 carbon dioxide, venous blood 35.3 mmol/L 21.0-32 .0 blood glucose 239 mg/dL 65-95 calcium, serum 10.6 mg/dL 8.5-10.1 urea nitrogen, blood 31 mg/dL 7-18 creatinine, serum 2.33 mg/dL 0.60-1.30 Estimated Glomerular Filtration Rate (calc) 23 (?) mL/min/1.73m2 = OR > 60 mL/min sodium, serum 141 mmol/L 022-300 2581/07/09 potassium, serum 4.9 mmol/L 3.5-5.2 chloride, serum [...] C - Chemistry sodium, serum 137 mmol/L 646-875 0074/10/17 potassium, serum 4.9 mmol/L 3.5-5.2 chloride, serum [...] Ordered Encounters Code Encounter Date Provider Facility CPT-12821 [id number]-Ttj Vst-Est Level IV 16:19:48 CDT Charlie Childers MD [facility] CPT-05207 49909-Wxz Vst-Est Level IV 14:22:53 [employer] Charlie Childers MD [facility] CPT-60915 68195-Tir Vst-Est Level IV 15:48:51 [employer] Charlie Childers MD [facility] CPT-45047 91061-Tlg Vst-Est Level V 14:28:39 CDT Aneudy Childers MD [facility] CPT-50447 84906-Wjv Vst-Est Level IV 15:03:32 CDT Charlie Childers MD [facility] CPT-43495 74389-Fuq Vst-Est Level III 15:51:57 CDT Baltazar Childers MD [facility] CPT-67949 20788-Rmn Vst-Est Level IV 15:14:58 CDT Charlie Childers MD [facility] CPT-81558 24974-Ztl Vst-Est Level IV 15:12:52 [employer] Charlie Childers MD [facility] CPT-92830 18643-Jrc Vst-Est Level IV 15:30:55 [employer] Charlie Childers MD [facility] CPT-13411 01144-Snx Vst-Est Level IV 13:49:06 C DT Ann Martinez [facility] CPT-93255 Level 4 Est. Patient 17:26:08 [facility] 75592-Bgp Vst-Est Level V 14:26:27 CDT Aneudy Childers MD [facility] CPT-99730 Level 4 Est. Patient 17:05:37 CDT Baltazar Childers MD [facility] CPT-86420 Level 4 Est. Patient 16:21:19 [employer] Baltazar Childers MD [facility] CPT-87139 Level 4 Est. Patient 12:25:11 CDT Baltazar Childers MD [facility] CPT-33285 Level 4 Est. Patient 14:22:31 CDT Baltazar Childers MD [facility] CPT-73096 Level 4 Est. Patient 15:44:38 CDT Shonna Parker APRN [facility] CPT-72040 Level 4 Est. Patient 11:34:17 CDT Baltazar Childers MD [facility]-83580 Level 3 Est. Patient 16:40:40 CDT Baltazar Childers MD [facility]-61372 Level 4 Est. Patient 10:41:24 CDT Baltazar Childers MD [facility]-94830 Level 4 Est. Patient 16:01:48 CDT Baltazar Childers MD [facility]-80992 Level 4 Est. Patient 16:54:07 [employer] Baltazar Childers MD [facility]-52532 Level 4 Est. Patient 15:42:12 CDT Baltazar Childers MD [facility] CPT-69203 Level 4 Est. Patient 11:29:55 CDT Baltazar Childers MD [facility] CPT-61997 Level 4 Est. Patient 14:15:19 CDT Baltazar Childers MD [facility] CPT-28065 Level 4 Est. Patient 12:20:13 CDT Baltazar Childers MD [facility] CPT-51623 Level 4 Est. Patient 14:52:45 [employer] Baltazar Childers MD [facility] CPT-79786 Level 4 Est. Patient 14:18:34 [employer] Baltazar Childers MD [facility] CPT-67640 Level 4 Est. Patient 15:18:29 CDT Baltazar Childers MD [facility] CPT-19170 Level 3 Est. Patient 12:45:34 CDT Baltazar Childers MD [facility]-05692 Level 3 Est. Patient 10:10:11 CDT Baltazar Childers MD [facility] CPT-27830 Level 3 Est. Patient 14:07:50 CDT Baltazar Childers MD [facility] CPT-90112 Level 4 Est. Patient 12:26:10 [employer] Baltazar Childers MD [facility] CPT-40301 Level 4 Est. Patient 14:45:38 CDT Baltazar Childers MD [facility] CPT-67870 Level 4 New Patient 12:30:48 CDT Baltazar hinton MD [facility] Procedures Code Procedure Name Date Entry Date Standard Desc ription CPT-63936 Venipuncture Draw Fee 16:23:32 CDT CPT-XU6663C (3066F) Documentation of treatment for n ephropathy 16:19:46 CDT CPT-CU7312I (3060F) Positive microalbumi abimael test result documented and reviewed 16:19:46 CDT CPT-000 Give Appropriate Flu Vaccine 14:07:28 [employer] CPT-71340 Venipuncture Draw Fee 16:24:55 [employer] CPT-54094 16677 - Immun Admin 1 vac 14:54:52 [employer] 2019 CPT-24573 Fluzone Quadrivalent (Flu) 0.5 mL 10Pk S yringe IM 14:54:52 [employer] CPT-VW4038X (4013F) Statin therapy prescribed or cur rently being taken 14:07:28 [employer] CPT-BC1429C (3066F) Documentation of treatment for n ephropathy 14:07:28 [employer] CPT-27194 Venipuncture Draw Fee 17:47:23 CDT CPT-70886 4M Drug Screen cup test, Multi-panel, urine 2018 14:28:39 CDT CPT-20965 Venipuncture Draw Fee 15:19:00 CDT CPT-000 Give Appropriate Flu Vaccine 12:25:14 CDT 2 CPT-98956 First Vx - Ix admin via ID I M or jet injects without counseling by physician 13:08:59 CDT CPT-87648 Fluzone Quadrivalent Intramuscular Suspe nsion 0.5 ML 13:08:59 CDT CPT-56380 Venipuncture Draw Fee 12:04:12 CDT CPT-49829 Lipid - LAB USE ONLY 17:39:15 [employer] 9 CPT-31735 HGBA1C - LAB USE ONLY 17:39:15 [employer] CPT-74693 CMP - LAB USE ONLY 17:39:14 [employer] CPT-44685 Venipuncture Draw Fee 17:39:14 [employer] CPT-73213 First Vx - Ix admin via ID I M or jet injects without counseling by physician 16:55:17 [employer] CPT-32109 Fluzone Quadrivalent Intramuscular Suspe nsion 0.5 ML 16:55:17 [employer] CPT-62454 Renal Panel - LAB USE ONLY 17:39:20 CDT 201 10/31/07 CPT-53945 CBC - LAB USE ONLY 17:39:20 CDT CPT-62766 Venipuncture Draw Fee 17:39:20 CDT CPT-31744 Venipuncture Draw Fee 14:33:30 CDT CPT-54844 Renal Panel - LAB USE ONLY 14:33:30 CDT 201 10/31/07 CPT-84221 CBC - LAB USE ONLY 14:33:29 CDT CPT-11883 Venipuncture Draw Fee 14:50:21 [employer] CPT-93409 Immunization Single Admin 17:35:35 CDT 2014 CPT-03203 Fluzone Quadrivalent preservative free ( >=3yrs.) 17:35:35 CDT CPT-97910 Venipuncture Draw Fee 12:10:27 [employer] CPT-30590 Fluzone Quadrivalent Intramuscular Suspe nsion 0.5 ML 10:49:13 CDT CPT-30667 First Vx Component - Ix admi n via ID IM or jet inj without physician counseling 15:17:19 [employer] CPT-66852 Pneumovax 15:17:19 [employer] CPT-72131 Pneumovax 14:52:45 [employer] CPT-17003 Venipuncture Draw Fee 14:06:30 [employer] CPT-000 Give Appropriate Flu Vaccine 14:18:34 [employer]PER[employer]OR 2 CPT-66368 Administration single or combination vac cine inc oral 14:46:00 [employer] CPT-18193 Influenza split virus > age 3 14:46:00 [employer] CPT-OV Office Visit 19:13:16 CDT CPT-70282 Zostavax 18:41:56 CDT CPT-49639 Administration single or combination vac cine inc oral 12:56:39 CDT CPT-83023 Zoster Vaccine (Zostavax) 12:56:39 CDT 2012 CPT-59052 Venipuncture Draw Fee 10:58:57 CDT CPT-40126 Sono pelvis non OB uterus ovaries cervix 17:45:04 CDT CPT-56831 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
--- OUTSIDE RECORDS SUMMARY | 2019-10-27 11:29 | XMS REPORT | Clinical Summary ---
Author Author Admin, Elba Lance [facility] Address Unknown Phone Unavailable Allergies, Adverse Reactions, [...] Morbid obesity due to excess calories 278.01 [facility] t Baltazar Childers MD Morbid obesity Obesity Class II (BMI 35-39.9) 278.01 Refinement 10/26 Baltazar Childers MD Morbid obesity Morbid obesity due to excess calories 278.01 [facility] t Baltazar Childers MD Morbid obesity Obesity Class II (BMI 35-39.9) 278.01 Refinement 01/19 Baltazar Childers MD Morbid obesity Morbid obesity due to excess calories 278.01 [facility] t Baltazar Childers MD Morbid [...] ronary atherosclerosis of unspecified type of vessel, [place] or graft OTH NONSPC ABN FINDNG RAD&OTH [...] 1 tab every 6-8 hours PRN HYDROCODONE-ACETAMINOPHEN 84670577077 Active Baltazar silverman MD Active SUCRALFATE 1 GM TABS 1 four times a day 1 hour before meals and at bedtime SUCRALFATE 01709487351 Active Fanny Hudson MA Active INSULIN SYRINGE 27G X 1/2" 0.5 ML use 1 as needed. INSULIN SYRINGE- NEEDLE U-100 31053575704 Active Fanny Hudson MA Active MAGNESIUM OXIDE 400 MG ORAL CAPSULE 1 po bid MAGNESIUM OXIDE 47653401811 Active Fadumo Ruiz Active HUMALOG 100 UNIT/ML SUBCUTANEOUS SOLUTION Take 10 units with every meal INSULIN LISPRO 11240254156 Active Baltazar Childers MD Active NOVOLOG 100 UNIT/ML SUBCUTANEOUS SOLUTION 5 units with each meal. 2 INSULIN ASPART 12421829559 No Longer Active Fanny Hudson MA Activ e ONGLYZA 2.5 MG TABS TAKE 1 TABLET BY MOUTH EVERY DAY FOR DIABETES 2 SAXAGLIPTIN HCL 70227514338 Active Baltazar Childers MD Active GLIPIZIDE 10MG TABLETS TAKE 2 TABLETS BY MOUTH TWICE DAILY GLIPIZIDE 00676890615 Active Baltazar Childers MD Active TRUE METRIX B/G TEST STRIPS 25'S TEST BLOOD SUGAR TWICE DAILY 03/02 GLUCOSE BLOOD 74927584333 Active KENDALL Juarez Active LEVOTHYROXINE 0.112MG (112MCG) TABS TAKE 1 TABLET BY MOUTH EVERY DAY LEVOTHYROXINE SODIUM 99169458512 Active Baltazar Childers MD Active AMLODIPINE BESYLATE 5MG TABLETS TAKE 1 TABLET BY MOUTH EVERY DAY FOR HYPERTENSION AMLODIPINE BESYLATE 80959479419 Active Ro yvan Childers MD Active LANTUS SOLOSTAR 100 UNIT/ML SUBCUTANEOUS SOLUTION PEN- INJECTOR 20 units am and 13 units at night INSULIN GLARGINE 29640360799 Active Baltazar Childers MD Active TRAMADOL HCL 50 MG ORAL TABLET 1 twice a day as needed for pain TRAMADOL HCL 32389297598 No Longer Active Baltazar Childers MD Active ROBAXIN 500 MG ORAL TABLET Take 1.5 (one and one half) tabs once daily METHOCARBAMOL 80413414821 Active Baltazar Childers MD Active TRUE METRIX AIR GLUCOSE METER DEVICE Use as directed BLOOD GLUCOSE MONITORING SUPPL 60608839689 Active Baltazar Childers MD Activ e NORTRIPTYLINE HCL 50 MG ORAL CAPSULE 1 twice a day for neuropathy 2 NORTRIPTYLINE HCL 87347569184 Active Baltazar Childers MD Acti ve ASPIRIN 81 MG TBEC Take one (1) tablet by mouth daily ASPIRIN 24414674693 Active Baltazar Childers MD Active GABAPENTIN 300 MG ORAL CAPSULE 1 three times a day 201 12/03/26 GABAPENTIN 12356737301 No Longer Active Baltazar Childers MD Activ e LISINOPRIL 20 MG ORAL TABLET 1 tablet by mouth daily at night 2016 LISINOPRIL 45903071843 Active Baltazar Childers MD Active ZITHROMAX Z-ISAIAS 250 MG ORAL TABLET Take two tablets to day and then 1 tablet daily for 4 days AZITHROMYCIN 26854335174 No Longer A ctive Baltazar Childers MD Active SUCRALFATE 1 GM ORAL TABLET 1 four times a day to coat the stoma ch SUCRALFATE 14017783327 No Longer Active Baltazar Childers MD Active PEN NEEDLES 31G X 6 MM use 1 daily INSULIN PEN NE EDLE 32905757023 Active KENDALL Juarez Active TOUJEO SOLOSTAR 300 UNIT/ML SUBCUTANEOUS SOLUTION PEN- INJECTOR 10 units SC daily INSULIN GLARGINE 08658173820 No Longer Active Rola ARGUETA Active NAPROXEN SODIUM 220 MG ORAL TABLET 1 three times a day as needed NAPROXEN SODIUM 09064846087 No Longer Active Baltazar Childers MD Active ATORVASTATIN CALCIUM 20 MG ORAL TABLET Take 1 tab daily ATORVASTATIN CALCIUM 31513549390 Active Baltazar Childers MD A ctive FUROSEMIDE 40 MG ORAL TABLET Take one by mouth daily FUROSEMIDE 18640673107 Active Baltazar Childers MD Active LISINOPRIL 20 MG ORAL TABLET Take one by mouth daily at bedtime LISINOPRIL 92190152043 No Longer Active Baltazar Childers MD Active ONETOUCH ULTRA BLUE IN VITRO STRIP Test twice a day 07/11/11 GLUCOSE BLOOD 57224174514 No Longer Active Baltazar Childers MD Acti ve TRUEPLUS LANCETS 33G Test twice a day LANCETS 7339608 3331 Active KENDALL Juarez Active TRUEDRAW LANCING DEVICE Test twice a day LANCET DEVICES 19245537885 Active Baltazar Childers MD Active TRUETRACK BLOOD GLUCOSE w/Device KIT Test twice a day BLOOD GLUCOSE MONITORING SUPPL 03262402760 Active Baltazar Childers MD Activ e GABAPENTIN 300 MG ORAL CAPSULE 1 po qd x 2 days, then 1 po BID x 2 days, then 1 po TID GABAPENTIN 67086976304 No Longer Active Baltazar Childers MD Active NAPROXEN 500 MG ORAL TABLET 1 tablet by mouth twice daily NAPROXEN 72048281345 No Longer Active Baltazra Childers MD Active PROAIR HFA 108 (90 Base) MCG/ACT INHALATION AEROSOL SO LUTION 2 puffs four times a day as needed ALBUTEROL SULFATE 66860146685 Active R gilberto Childers MD Active DEPO-TESTOSTERONE 200 MG/ML INTRAMUSCULAR SOLUTION as directed TESTOSTERONE CYPIONATE 22153484938 No Longer Active Baltazar Childers MD Active LIPITOR 20 MG ORAL TABLET Take one by mouth daily in evening ATORVASTATIN CALCIUM 20310744976 No Longer Active Baltazar Childers MD Active CRESTOR 10 MG ORAL TABLET 1 by mouth every day ROSUVASTATIN CALCIUM 60722365488 No Longer Active Baltazar Childers MD Active PHENTERMINE HCL 37.5 MG ORAL TABLET Take one by mouth daily PHENTERMINE HCL 84829193018 No Longer Active Baltazar Childers MD Ac tive TIZANIDINE HCL 4 MG ORAL TABLET 1 daily as needed for muscle spa sm TIZANIDINE HCL 05269345763 No Longer Active Dawna Salazar RN Active [id number] 50-325-40 MG ORAL TABLET 1 fo ur times a day as needed for heacache [id number] 46042203689 Active KENDALL Juarez Active SUMATRIPTAN SUCCINATE 100 MG ORAL TABLET 1 tablet by m outh at onset of migraine as needed SUMATRIPTAN SUCCINATE 19315812995 Active Fanny Hudson MA Active LORATADINE 10 MG ORAL TABLET Take one by mouth daily LORATADINE 65342646201 Active Fanny Hudson MA Active OMEPRAZOLE 20 MG ORAL CAPSULE DELAYED RELEASE Take one by mouth jostin ly OMEPRAZOLE 28606960233 Active Baltazar Childers MD Active HYDROXYZINE HCL 25 MG ORAL TABLET Take one by mouth daily HYDROXYZINE HCL 62618488043 Active Baltazar Childers MD Active ALPRAZOLAM 1 MG ORAL TABLET 1 tablet by mouth daily at bedti me for restless leg ALPRAZOLAM 39213982355 Active Baltaazr Childers MD Active METFORMIN HCL 1000 MG ORAL TABLET Take one by mouth twice daily METFORMIN HCL 65410464328 Active Baltazar Childers MD Active NAPROXEN 500 MG ORAL TABLET 1 tablet by mouth twice daily NAPROXEN 500 MG ORAL TABLET 466747 NAPROXEN Inactive PHENTERMINE HCL 37.5 MG ORAL TABLET Take one by mouth daily PHENTERMINE HCL 37.5 MG ORAL TABLET 952472 PHENTERMINE HCL Inac tive SUCRALFATE 1 GM ORAL TABLET 1 four times a day to coat the stoma ch SUCRALFATE 1 GM ORAL TABLET 302867 SUCRALFATE Inac tive NAPROXEN SODIUM 220 MG ORAL TABLET 1 three times a day as needed NAPROXEN SODIUM 220 MG ORAL TABLET 24241571623 NAPROXEN SODI UM Inactive TRAMADOL HCL 50 MG ORAL TABLET 1 twice a day as needed for pain TRAMADOL HCL 50 MG ORAL TABLET 358248 TRAMADOL HCL I nactive TIZANIDINE HCL 4 MG ORAL TABLET 1 daily as needed for muscle spa sm TIZANIDINE HCL 4 MG ORAL TABLET 842899 TIZANIDINE HCL Inactive GABAPENTIN 300 MG ORAL CAPSULE 1 po qd x 2 days, then 1 po BID x 2 days, then 1 po TID GABAPENTIN 300 MG ORAL CAPSULE 517259 GABAP ENTIN Inactive GABAPENTIN 300 MG ORAL CAPSULE 1 three times a day 201 12/03/26 GABAPENTIN 300 MG ORAL CAPSULE 160531 GABAPENTIN Inactive LIPITOR 20 MG ORAL TABLET Take one by mouth daily in evening LIPITOR 20 MG ORAL TABLET 414671 ATORVASTATIN CALCIUM Inactive ONETOUCH ULTRA BLUE IN VITRO STRIP Test twice a day 07/11/11 ONETOUCH ULTRA BLUE IN VITRO STRIP GLUCOSE BLOOD Inact amie ZITHROMAX Z-ISAIAS 250 MG ORAL TABLET Take two tablets to day and then 1 tablet daily for 4 days ZITHROMAX Z-ISAIAS 250 MG ORAL TAB LET 291267 AZITHROMYCIN Inactive CRESTOR 10 MG ORAL TABLET 1 by mouth every day CRESTOR 10 MG ORAL TABLET 516184 ROSUVASTATIN CALCIUM Inactive DEPO-TESTOSTERONE 200 MG/ML INTRAMUSCULAR SOLUTION as directed DEPO-TESTOSTERONE 200 MG/ML INTRAMUSCULAR SOLUTION 0406444 RUFINO TOSTERONE CYPIONATE Inactive TOUJEMelinda SOLOSTAR 300 [...] Fluarix, Agriflu(>= 18 yo)) Fluzone (>3 yrs.) [[id number]] Influenza, seasonal, inject able Seasonal influenza vaccine, injectable, containing preservative, for > 3 years old (Afluria, FluLaval, Fluzone, Fluvirin, Fluarix, Agriflu(>= 18 yo)) Fluzone (>3 yrs.) [HST516] Influenza, seasonal, inject able Vital Signs Date [...] - Chem istry sodium, serum 136 mmol/L 666-865 1986/06/04 potassium, serum 4.9 mmol/L 3.5-5.2 chloride, serum 97 mmol/L 98-107 carbon dioxide, venous blood 35.3 mmol/L 21.0-32 .0 blood glucose 239 mg/dL 65-95 calcium, serum 10.6 mg/dL 8.5-10.1 urea nitrogen, blood 31 mg/dL 7-18 creatinine, serum 2.33 mg/dL 0.60-1.30 Estimated Glomerular Filtration Rate (calc) 23 (?) mL/min/1.73m2 = OR > 60 mL/min sodium, serum 141 mmol/L 735-310 6581/07/09 potassium, serum 4.9 mmol/L 3.5-5.2 chloride, serum [...] C - Chemistry sodium, serum 137 mmol/L 413-212 1966/10/17 potassium, serum 4.9 mmol/L 3.5-5.2 chloride, serum [...] Ordered Encounters Code Encounter Date Provider Facility CPT-81496 [id number] Vst-Est Level IV 16:19:48 CDT Charlie Childers MD [facility] CPT-08971 [id number] Vst-Est Level IV 14:22:53 QUALITY LIAISON Charlie Childers MD [facility] CPT-21018 [id number] Vst-Est Level IV 15:48:51 QUALITY LIAISON Charlie Childers MD [facility] CPT-59632 [id number] Vst-Est Level V 14:28:39 CDT Aneudy Childers MD [facility] CPT-69958 [id number] Vst-Est Level IV 15:03:32 CDT Charlie Childers MD [facility] CPT-60870 [id number] Vst-Est Level III 15:51:57 CDT Baltazar Childers MD [facility] CPT-16579 [id number] Vst-Est Level IV 15:14:58 CDT Charlie Childers MD [facility] CPT-58339 56377-Mss Vst-Est Level IV 15:12:52 QUALITY LIAISON Charlie Childers MD [facility] CPT-12816 90019-Nrv Vst-Est Level IV 15:30:55 QUALITY LIAISON Charlie Childers MD [facility] CPT-06140 [id number] Vst-Est Level IV 13:49:06 C DT Ann Martinez [facility] CPT-56089 Level 4 Est. Patient 17:26:08 [facility] [id number] Vst-Est Level V 14:26:27 CDT Aneudy Childers MD [facility] CPT-35749 Level 4 Est. Patient 17:05:37 CDT Baltazar Childers MD [facility] CPT-01820 Level 4 Est. Patient 16:21:19 QUALITY LIAISON Baltazar Childers MD [facility] CPT-74981 Level 4 Est. Patient 12:25:11 CDT Baltazar Childers MD [facility] CPT-49863 Level 4 Est. Patient 14:22:31 CDT Baltazar Childers MD [facility] CPT-51239 Level 4 Est. Patient 15:44:38 CDT Shonna Parker APRN [facility] CPT-61302 Level 4 Est. Patient 11:34:17 CDT Baltazar Childers MD [facility]-98471 Level 3 Est. Patient 16:40:40 CDT Baltazar Childers MD [facility]-56399 Level 4 Est. Patient 10:41:24 CDT Baltazar Childers MD [facility]-30102 Level 4 Est. Patient 16:01:48 CDT Baltazar Childers MD [facility]-90252 Level 4 Est. Patient 16:54:07 QUALITY LIAISON Baltazar Childers MD [facility]-79001 Level 4 Est. Patient 15:42:12 CDT Baltazar Childers MD [facility] CPT-02543 Level 4 Est. Patient 11:29:55 CDT Baltazar Childers MD [facility] CPT-83477 Level 4 Est. Patient 14:15:19 CDT Baltazar Childers MD [facility] CPT-84920 Level 4 Est. Patient 12:20:13 CDT Baltazar Childers MD [facility] CPT-01719 Level 4 Est. Patient 14:52:45 QUALITY LIAISON Baltazar Childers MD [facility] CPT-90135 Level 4 Est. Patient 14:18:34 QUALITY LIAISON Baltazar Childers MD [facility] CPT-15335 Level 4 Est. Patient 15:18:29 CDT Baltazar Childers MD [facility] CPT-15318 Level 3 Est. Patient 12:45:34 CDT Baltazar Childers MD [facility]-43644 Level 3 Est. Patient 10:10:11 CDT Baltazar Childers MD [facility] CPT-26895 Level 3 Est. Patient 14:07:50 CDT Baltazar Childers MD [facility] CPT-63167 Level 4 Est. Patient 12:26:10 QUALITY LIAISON Baltazar Childers MD [facility] CPT-27338 Level 4 Est. Patient 14:45:38 CDT Baltazar Childers MD [facility] CPT-06152 Level 4 New Patient 12:30:48 CDT Baltazar hinton MD [facility] Procedures Code Procedure Name Date Entry Date Standard Desc ription CPT-04959 Venipuncture Draw Fee 16:23:32 CDT CPT-UD7117A (3066F) Documentation of treatment for n ephropathy 16:19:46 CDT CPT-MC1555H (3060F) Positive microalbumi abimael test result documented and reviewed 16:19:46 CDT CPT-000 Give Appropriate Flu Vaccine 14:07:28 QUALITY LIAISON CPT-85090 Venipuncture Draw Fee 16:24:55 QUALITY LIAISON CPT-24181 34091 - Immun Admin 1 vac 14:54:52 QUALITY LIAISON 2019 CPT-57337 Fluzone Quadrivalent (Flu) 0.5 mL 10Pk S yringe IM 14:54:52 QUALITY LIAISON CPT-KY5294E (4013F) Statin therapy prescribed or cur rently being taken 14:07:28 QUALITY LIAISON CPT-LJ9286S (3066F) Documentation of treatment for n ephropathy 14:07:28 QUALITY LIAISON CPT-52279 Venipuncture Draw Fee 17:47:23 CDT CPT-07812 4M Drug Screen cup test, Multi-panel, urine 2018 14:28:39 CDT CPT-17460 Venipuncture Draw Fee 15:19:00 CDT CPT-000 Give Appropriate Flu Vaccine 12:25:14 CDT 2 CPT-72045 First Vx - Ix admin via ID I M or jet injects without counseling by physician 13:08:59 CDT CPT-59316 Fluzone Quadrivalent Intramuscular Suspe nsion 0.5 ML 13:08:59 CDT CPT-95520 Venipuncture Draw Fee 12:04:12 CDT CPT-97433 Lipid - LAB USE ONLY 17:39:15 QUALITY LIAISON 9 CPT-49970 HGBA1C - LAB USE ONLY 17:39:15 QUALITY LIAISON CPT-63856 CMP - LAB USE ONLY 17:39:14 QUALITY LIAISON CPT-68383 Venipuncture Draw Fee 17:39:14 QUALITY LIAISON CPT-51429 First Vx - Ix admin via ID I M or jet injects without counseling by physician 16:55:17 QUALITY LIAISON CPT-75767 Fluzone Quadrivalent Intramuscular Suspe nsion 0.5 ML 16:55:17 QUALITY LIAISON CPT-81659 Renal Panel - LAB USE ONLY 17:39:20 CDT 201 10/31/07 CPT-30085 CBC - LAB USE ONLY 17:39:20 CDT CPT-76594 Venipuncture Draw Fee 17:39:20 CDT CPT-25935 Venipuncture Draw Fee 14:33:30 CDT CPT-50565 Renal Panel - LAB USE ONLY 14:33:30 CDT 201 10/31/07 CPT-53526 CBC - LAB USE ONLY 14:33:29 CDT CPT-34240 Venipuncture Draw Fee 14:50:21 QUALITY LIAISON CPT-13803 Immunization Single Admin 17:35:35 CDT 2014 CPT-04319 Fluzone Quadrivalent preservative free ( >=3yrs.) 17:35:35 CDT CPT-93981 Venipuncture Draw Fee 12:10:27 QUALITY LIAISON CPT-67111 Fluzone Quadrivalent Intramuscular Suspe nsion 0.5 ML 10:49:13 CDT CPT-28375 First Vx Component - Ix admi n via ID IM or jet inj without physician counseling 15:17:19 QUALITY LIAISON CPT-44416 Pneumovax 15:17:19 QUALITY LIAISON CPT-20700 Pneumovax 14:52:45 QUALITY LIAISON CPT-43251 Venipuncture Draw Fee 14:06:30 QUALITY LIAISON CPT-000 Give Appropriate Flu Vaccine 14:18:34 QUALITY LIAISON 2 CPT-18186 Administration single or combination vac cine inc oral 14:46:00 QUALITY LIAISON CPT-49974 Influenza split virus > age 3 14:46:00 QUALITY LIAISON CPT-OV Office Visit 19:13:16 CDT CPT-32754 Zostavax 18:41:56 CDT CPT-12324 Administration single or combination vac cine inc oral 12:56:39 CDT CPT-79422 Zoster Vaccine (Zostavax) 12:56:39 CDT 2012 CPT-65421 Venipuncture Draw Fee 10:58:57 CDT CPT-58180 Sono pelvis non OB uterus ovaries cervix 17:45:04 CDT CPT-99743 Sono retroperitoneal complete kidneys an d bladder 17:14:36 CDT CPT-OV Office Visit 14:59:38 QUALITY LIAISON CPT-J1070 Depo Testosterone 100 mg 14:50:13 CDT 03/05 CPT-46384 Abx/Therapy Injection 14:50:13 CDT CPT-89735 Administration single or combination vac cine inc oral 14:34:43 CDT CPT-84644 Influenza split virus > age 3 14:34:43 CDT CPT-J1070 Depo Testosterone 100 mg 17:37:13 CDT 01/11 CPT-41272 Abx/Therapy Injection 17:37:13 CDT CPT-70387 Venipuncture Draw Fee 16:30:13 CDT CPT-26812 Venipuncture Draw Fee 16:29:43 CDT CPT-J1070 Depo Testosterone 100 mg 14:45:38 CDT 01/11
--- OUTSIDE RECORDS SUMMARY | 2019-10-27 11:29 | XMS REPORT | Clinical Summary ---
Author Author Admin, [facility] [employer] Address Unknown Phone Unavailable Allergies, Adverse Reactions, [...] hyperlipidemia CARPAL TUNNEL SYNDROME 354.0 Active Baltazar sivlerman MD Carpal tunnel syndrome OBESITY 278.00 Inactive Baltazar Childers MD Obesity, unspecified Morbid obesity 278.01 Refinement Baltazar Childers MD Morbid obesity Morbid obesity due to excess calories 278.01 Inactive Baltazar Childers MD Morbid obesity Obesity, class III 278.01 Refinement Ann mireles PA-C Morbid obesity Morbid obesity due to excess calories 278.01 [facility] t Baltazar Childers MD Morbid obesity Obesity Class II (BMI 35-39.9) 278.01 Refinement 10/26 Baltazar Childers MD Morbid obesity Morbid obesity due to excess calories 278.01 [facility] t Baltazar Childers MD Morbid obesity Obesity Class II (BMI 35-39.9) 278.01 Refinement 01/19 Baltazar Childers MD Morbid obesity Morbid obesity due to excess calories 278.01 [facility] t Baltazar Childers MD Morbid obesity Obesity [...] ronary atherosclerosis of unspecified type of vessel, [place] or graft OTH NONSPC ABN FINDNG RAD&OTH [...] 1 tab every 6-8 hours PRN HYDROCODONE-ACETAMINOPHEN 44298972300 Active Baltazar silverman MD Active SUCRALFATE 1 GM TABS 1 four times a day 1 hour before meals and at bedtime SUCRALFATE 76204792334 Active Fanny Hudson MA Active INSULIN SYRINGE 27G X 1/2" 0.5 ML use 1 as needed. INSULIN SYRINGE- NEEDLE U-100 92320086799 Active Fanny Hudson MA Active MAGNESIUM OXIDE 400 MG ORAL CAPSULE 1 po bid MAGNESIUM OXIDE 47076954378 Active Fadumo Ruiz Active HUMALOG 100 UNIT/ML SUBCUTANEOUS SOLUTION Take 10 units with every meal INSULIN LISPRO 83791457043 Active Baltazar Childers MD Active NOVOLOG 100 UNIT/ML SUBCUTANEOUS SOLUTION 5 units with each meal. 2 INSULIN ASPART 38985888756 No Longer Active Fanny Hudson MA Activ e ONGLYZA 2.5 MG TABS TAKE 1 TABLET BY MOUTH EVERY DAY FOR DIABETES 2 SAXAGLIPTIN HCL 36427354481 Active Baltazar Childers MD Active GLIPIZIDE 10MG TABLETS TAKE 2 TABLETS BY MOUTH TWICE DAILY GLIPIZIDE 44549289585 Active Baltazar Childers MD Active TRUE METRIX B/G TEST STRIPS 25'S TEST BLOOD SUGAR TWICE DAILY 03/02 GLUCOSE BLOOD 45046350327 Active KENDALL Juarez Active LEVOTHYROXINE 0.112MG (112MCG) TABS TAKE 1 TABLET BY MOUTH EVERY DAY LEVOTHYROXINE SODIUM 50885185489 Active Baltazar Childers MD Active AMLODIPINE BESYLATE 5MG TABLETS TAKE 1 TABLET BY MOUTH EVERY DAY FOR HYPERTENSION AMLODIPINE BESYLATE 89114662891 Active Ro yvan Childers MD Active LANTUS SOLOSTAR 100 UNIT/ML SUBCUTANEOUS SOLUTION PEN- INJECTOR 20 units am and 13 units at night INSULIN GLARGINE 56120105160 Active Baltazar Childers MD Active TRAMADOL HCL 50 MG ORAL TABLET 1 twice a day as needed for pain TRAMADOL HCL 27780651027 No Longer Active Baltazar Childers MD Active ROBAXIN 500 MG ORAL TABLET Take 1.5 (one and one half) tabs once daily METHOCARBAMOL 03461439227 Active Baltazar Childers MD Active TRUE METRIX AIR GLUCOSE METER DEVICE Use as directed BLOOD GLUCOSE MONITORING SUPPL 09948587466 Active Baltazar Childers MD Activ e NORTRIPTYLINE HCL 50 MG ORAL CAPSULE 1 twice a day for neuropathy 2 NORTRIPTYLINE HCL 63816978602 Active Baltazar Childers MD Acti ve ASPIRIN 81 MG TBEC Take one (1) tablet by mouth daily ASPIRIN 12825247846 Active Baltazar Childers MD Active GABAPENTIN 300 MG ORAL CAPSULE 1 three times a day 201 12/03/26 GABAPENTIN 34990879047 No Longer Active Baltazar Childers MD Activ e LISINOPRIL 20 MG ORAL TABLET 1 tablet by mouth daily at night 2016 LISINOPRIL 33894527678 Active Baltazar Childers MD Active ZITHROMAX Z-ISAIAS 250 MG ORAL TABLET Take two tablets to day and then 1 tablet daily for 4 days AZITHROMYCIN 04071866528 No Longer A ctive Baltazar Childers MD Active SUCRALFATE 1 GM ORAL TABLET 1 four times a day to coat the stoma ch SUCRALFATE 23629057461 No Longer Active Baltazar Childers MD Active PEN NEEDLES 31G X 6 MM use 1 daily INSULIN PEN NE EDLE 77402497401 Active KENDALL Juarez Active TOUJEO SOLOSTAR 300 UNIT/ML SUBCUTANEOUS SOLUTION PEN- INJECTOR 10 units SC daily INSULIN GLARGINE 46489722954 No Longer Active Rola ARGUETA Active NAPROXEN SODIUM 220 MG ORAL TABLET 1 three times a day as needed NAPROXEN SODIUM 15988001295 No Longer Active Baltazar Childers MD Active ATORVASTATIN CALCIUM 20 MG ORAL TABLET Take 1 tab daily ATORVASTATIN CALCIUM 22682755181 Active Baltazar Childers MD A ctive FUROSEMIDE 40 MG ORAL TABLET Take one by mouth daily FUROSEMIDE 14405455914 Active Baltazar Childers MD Active LISINOPRIL 20 MG ORAL TABLET Take one by mouth daily at bedtime LISINOPRIL 41618908367 No Longer Active Baltazar Childers MD Active ONETOUCH ULTRA BLUE IN VITRO STRIP Test twice a day 07/11/11 GLUCOSE BLOOD 10809872929 No Longer Active Baltazar Childers MD Acti ve TRUEPLUS LANCETS 33G Test twice a day LANCETS 4241360 7618 Active KENDALL Juarez Active TRUEDRAW LANCING DEVICE Test twice a day LANCET DEVICES 28157485904 Active Baltazar Childers MD Active TRUETRACK BLOOD GLUCOSE w/Device KIT Test twice a day BLOOD GLUCOSE MONITORING SUPPL 40495753198 Active Baltazar Childers MD Activ e GABAPENTIN 300 MG ORAL CAPSULE 1 po qd x 2 days, then 1 po BID x 2 days, then 1 po TID GABAPENTIN 86081975184 No Longer Active Baltazar Childers MD Active NAPROXEN 500 MG ORAL TABLET 1 tablet by mouth twice daily NAPROXEN 29764921316 No Longer Active Baltazar Childers MD Active PROAIR HFA 108 (90 Base) MCG/ACT INHALATION AEROSOL SO LUTION 2 puffs four times a day as needed ALBUTEROL SULFATE 10835798675 Active R gilberto Childers MD Active DEPO-TESTOSTERONE 200 MG/ML INTRAMUSCULAR SOLUTION as directed TESTOSTERONE CYPIONATE 24794720028 No Longer Active Baltazar Childers MD Active LIPITOR 20 MG ORAL TABLET Take one by mouth daily in evening ATORVASTATIN CALCIUM 50530999352 No Longer Active Baltazar Childers MD Active CRESTOR 10 MG ORAL TABLET 1 by mouth every day ROSUVASTATIN CALCIUM 79759954155 No Longer Active Baltazar Childers MD Active PHENTERMINE HCL 37.5 MG ORAL TABLET Take one by mouth daily PHENTERMINE HCL 26475494394 No Longer Active Baltazar Childers MD Ac tive TIZANIDINE HCL 4 MG ORAL TABLET 1 daily as needed for muscle spa sm TIZANIDINE HCL 60893209007 No Longer Active Dawna Salazar RN Active [id number] 50-325-40 MG ORAL TABLET 1 fo ur times a day as needed for heacache [id number] 99866797919 Active KENDALL Juarez Active SUMATRIPTAN SUCCINATE 100 MG ORAL TABLET 1 tablet by m outh at onset of migraine as needed SUMATRIPTAN SUCCINATE 56739683118 Active Fanny Hudson MA Active LORATADINE 10 MG ORAL TABLET Take one by mouth daily LORATADINE 89385558282 Active Fanny Hudson MA Active OMEPRAZOLE 20 MG ORAL CAPSULE DELAYED RELEASE Take one by mouth jostin ly OMEPRAZOLE 43405464558 Active Baltazar Childers MD Active HYDROXYZINE HCL 25 MG ORAL TABLET Take one by mouth daily HYDROXYZINE HCL 22724857905 Active Baltazar Childers MD Active ALPRAZOLAM 1 MG ORAL TABLET 1 tablet by mouth daily at bedti me for restless leg ALPRAZOLAM 46313274026 Active Baltazar Childers MD Active METFORMIN HCL 1000 MG ORAL TABLET Take one by mouth twice daily METFORMIN HCL 28937593460 Active Baltazar Childers MD Active NAPROXEN 500 MG ORAL TABLET 1 tablet by mouth twice daily NAPROXEN 500 MG ORAL TABLET 881949 NAPROXEN Inactive PHENTERMINE HCL 37.5 MG ORAL TABLET Take one by mouth daily PHENTERMINE HCL 37.5 MG ORAL TABLET 558126 PHENTERMINE HCL Inac tive SUCRALFATE 1 GM ORAL TABLET 1 four times a day to coat the stoma ch SUCRALFATE 1 GM ORAL TABLET 614688 SUCRALFATE Inac tive NAPROXEN SODIUM 220 MG ORAL TABLET 1 three times a day as needed NAPROXEN SODIUM 220 MG ORAL TABLET 75486165067 NAPROXEN SODI UM Inactive TRAMADOL HCL 50 MG ORAL TABLET 1 twice a day as needed for pain TRAMADOL HCL 50 MG ORAL TABLET 220706 TRAMADOL HCL I nactive TIZANIDINE HCL 4 MG ORAL TABLET 1 daily as needed for muscle spa sm TIZANIDINE HCL 4 MG ORAL TABLET 754543 TIZANIDINE HCL Inactive GABAPENTIN 300 MG ORAL CAPSULE 1 po qd x 2 days, then 1 po BID x 2 days, then 1 po TID GABAPENTIN 300 MG ORAL CAPSULE 255056 GABAP ENTIN Inactive GABAPENTIN 300 MG ORAL CAPSULE 1 three times a day 201 12/03/26 GABAPENTIN 300 MG ORAL CAPSULE 265986 GABAPENTIN Inactive LIPITOR 20 MG ORAL TABLET Take one by mouth daily in evening LIPITOR 20 MG ORAL TABLET 821990 ATORVASTATIN CALCIUM Inactive ONETOUCH ULTRA BLUE IN VITRO STRIP Test twice a day 07/11/11 ONETOUCH ULTRA BLUE IN VITRO STRIP GLUCOSE BLOOD Inact amie ZITHROMAX Z-ISAIAS 250 MG ORAL TABLET Take two tablets to day and then 1 tablet daily for 4 days ZITHROMAX Z-ISAIAS 250 MG ORAL TAB LET 308504 AZITHROMYCIN Inactive CRESTOR 10 MG ORAL TABLET 1 by mouth every day CRESTOR 10 MG ORAL TABLET 238353 ROSUVASTATIN CALCIUM Inactive DEPO-TESTOSTERONE 200 MG/ML INTRAMUSCULAR SOLUTION as directed DEPO-TESTOSTERONE 200 MG/ML INTRAMUSCULAR SOLUTION 0001086 RUFINO TOSTERONE CYPIONATE Inactive TOUJEMelinda SOLOSTAR 300 [...] Fluarix, Agriflu(>= 18 yo)) Fluzone (>3 yrs.) [CKG583] Influenza, seasonal, inject able Seasonal influenza vaccine, injectable, containing preservative, for > 3 years old (Afluria, FluLaval, Fluzone, Fluvirin, Fluarix, Agriflu(>= 18 yo)) Fluzone (>3 yrs.) [PDQ054] Influenza, seasonal, inject able Vital Signs Date [...] - Chem istry sodium, serum 136 mmol/L 555-850 3196/06/04 potassium, serum 4.9 mmol/L 3.5-5.2 chloride, serum 97 mmol/L 98-107 carbon dioxide, venous blood 35.3 mmol/L 21.0-32 .0 blood glucose 239 mg/dL 65-95 calcium, serum 10.6 mg/dL 8.5-10.1 urea nitrogen, blood 31 mg/dL 7-18 creatinine, serum 2.33 mg/dL 0.60-1.30 Estimated Glomerular Filtration Rate (calc) 23 (?) mL/min/1.73m2 = OR > 60 mL/min sodium, serum 141 mmol/L 864-510 8029/07/09 potassium, serum 4.9 mmol/L 3.5-5.2 chloride, serum [...] C - Chemistry sodium, serum 137 mmol/L 750-439 9172/10/17 potassium, serum 4.9 mmol/L 3.5-5.2 chloride, serum [...] Ordered Encounters Code Encounter Date Provider Facility CPT-08131 26259-Hjl Vst-Est Level IV 16:19:48 CDT Charlie Childers MD [facility] CPT-07231 76084-Oht Vst-Est Level IV 14:22:53 INFRASTRUCTURE CONSULTANT Charlie Childers MD [facility] CPT-77490 33116-Tmg Vst-Est Level IV 15:48:51 INFRASTRUCTURE CONSULTANT Charlie Childers MD [facility] CPT-11241 30696-Usl Vst-Est Level V 14:28:39 CDT Aneudy Childers MD [facility] CPT-37626 69034-Jtp Vst-Est Level IV 15:03:32 CDT Charlie Childers MD [facility] CPT-93276 17471-Vrz Vst-Est Level III 15:51:57 CDT Baltazar Childers MD [facility] CPT-14621 72633-Kuh Vst-Est Level IV 15:14:58 CDT Charlie Childers MD [facility] CPT-87900 89457-Bgx Vst-Est Level IV 15:12:52 INFRASTRUCTURE CONSULTANT Charlie Childers MD [facility] CPT-06699 38470-Byp Vst-Est Level IV 15:30:55 INFRASTRUCTURE CONSULTANT Charlie Childers MD [facility] CPT-73636 99719-Mwd Vst-Est Level IV 13:49:06 C DT Ann Martinez [facility] [place] CPT-95582 Level 4 Est. Patient 17:26:08 CDT Ann [facility]irtua [facility] CPT-11265 81604-Iom Vst-Est Level V 14:26:27 CDT Aneudy Childers MD [facility] CPT-44691 Level 4 Est. Patient 17:05:37 CDT Baltazar Childers MD [facility] CPT-08993 Level 4 Est. Patient 16:21:19 INFRASTRUCTURE CONSULTANT Baltazar Childers MD [facility] CPT-68121 Level 4 Est. Patient 12:25:11 CDT Baltazar Childers MD [facility] CPT-70794 Level 4 Est. Patient 14:22:31 CDT Baltazar Childers MD [facility] CPT-74744 Level 4 Est. Patient 15:44:38 CDT Shonna Parker APRN [facility] CPT-72824 Level 4 Est. Patient 11:34:17 CDT Baltazar Childers MD [facility]-67390 Level 3 Est. Patient 16:40:40 CDT Baltazar Childers MD [facility]-44506 Level 4 Est. Patient 10:41:24 CDT Baltazar Childers MD [facility]-31322 Level 4 Est. Patient 16:01:48 CDT Baltazar Childers MD [facility]-49632 Level 4 Est. Patient 16:54:07 INFRASTRUCTURE CONSULTANT Baltazar Childers MD [facility]-59540 Level 4 Est. Patient 15:42:12 CDT Baltazar Childers MD [facility] CPT-95903 Level 4 Est. Patient 11:29:55 CDT Baltazar Childers MD [facility] CPT-33257 Level 4 Est. Patient 14:15:19 CDT Baltazar Childers MD [facility] CPT-65440 Level 4 Est. Patient 12:20:13 CDT Baltazar Childers MD [facility] CPT-60849 Level 4 Est. Patient 14:52:45 INFRASTRUCTURE CONSULTANT Baltazar Childers MD [facility] CPT-28470 Level 4 Est. Patient 14:18:34 INFRASTRUCTURE CONSULTANT Baltazar Childers MD [facility] CPT-23334 Level 4 Est. Patient 15:18:29 CDT Baltazar Childers MD [facility] CPT-86904 Level 3 Est. Patient 12:45:34 CDT Baltazar Childers MD [facility]-91353 Level 3 Est. Patient 10:10:11 CDT Baltazar Childers MD [facility] CPT-20198 Level 3 Est. Patient 14:07:50 CDT Baltazar Childers MD [facility] CPT-47920 Level 4 Est. Patient 12:26:10 INFRASTRUCTURE CONSULTANT Baltazar Childers MD [facility] CPT-94735 Level 4 Est. Patient 14:45:38 CDT Baltazar Childers MD [facility] CPT-40738 Level 4 New Patient 12:30:48 CDT Baltazar hinton MD [facility] Procedures Code Procedure Name Date Entry Date Standard Desc ription CPT-18070 Venipuncture Draw Fee 16:23:32 CDT CPT-TB8161D (3066F) Documentation of treatment for n ephropathy 16:19:46 CDT CPT-VT0952Z (3060F) Positive microalbumi abimael test result documented and reviewed 16:19:46 CDT CPT-000 Give Appropriate Flu Vaccine 14:07:28 INFRASTRUCTURE CONSULTANT CPT-18319 Venipuncture Draw Fee 16:24:55 INFRASTRUCTURE CONSULTANT CPT-33353 03389 - Immun Admin 1 vac 14:54:52 INFRASTRUCTURE CONSULTANT 2019 CPT-96970 Fluzone Quadrivalent (Flu) 0.5 mL 10Pk S yringe IM 14:54:52 INFRASTRUCTURE CONSULTANT CPT-HG6765C (4013F) Statin therapy prescribed or cur rently being taken 14:07:28 INFRASTRUCTURE CONSULTANT CPT-DS4199X (3066F) Documentation of treatment for n ephropathy 14:07:28 INFRASTRUCTURE CONSULTANT CPT-07934 Venipuncture Draw Fee 17:47:23 CDT CPT-33987 4M Drug Screen cup test, Multi-panel, urine 2018 14:28:39 CDT CPT-86393 Venipuncture Draw Fee 15:19:00 CDT CPT-000 Give Appropriate Flu Vaccine 12:25:14 CDT 2 CPT-01687 First Vx - Ix admin via ID I M or jet injects without counseling by physician 13:08:59 CDT CPT-87814 Fluzone Quadrivalent Intramuscular Suspe nsion 0.5 ML 13:08:59 CDT CPT-56393 Venipuncture Draw Fee 12:04:12 CDT CPT-29973 Lipid - LAB USE ONLY 17:39:15 INFRASTRUCTURE CONSULTANT 9 CPT-93136 HGBA1C - LAB USE ONLY 17:39:15 INFRASTRUCTURE CONSULTANT CPT-60601 CMP - LAB USE ONLY 17:39:14 INFRASTRUCTURE CONSULTANT CPT-71503 Venipuncture Draw Fee 17:39:14 INFRASTRUCTURE CONSULTANT CPT-96646 First Vx - Ix admin via ID I M or jet injects without counseling by physician 16:55:17 INFRASTRUCTURE CONSULTANT CPT-21803 Fluzone Quadrivalent Intramuscular Suspe nsion 0.5 ML 16:55:17 INFRASTRUCTURE CONSULTANT CPT-72241 Renal Panel - LAB USE ONLY 17:39:20 CDT 201 10/31/07 CPT-20772 CBC - LAB USE ONLY 17:39:20 CDT CPT-56136 Venipuncture Draw Fee 17:39:20 CDT CPT-80732 Venipuncture Draw Fee 14:33:30 CDT CPT-53035 Renal Panel - LAB USE ONLY 14:33:30 CDT 201 10/31/07 CPT-92616 CBC - LAB USE ONLY 14:33:29 CDT CPT-14094 Venipuncture Draw Fee 14:50:21 INFRASTRUCTURE CONSULTANT CPT-62063 Immunization Single Admin 17:35:35 CDT 2014 CPT-18671 Fluzone Quadrivalent preservative free ( >=3yrs.) 17:35:35 CDT CPT-93085 Venipuncture Draw Fee 12:10:27 INFRASTRUCTURE CONSULTANT CPT-15295 Fluzone Quadrivalent Intramuscular Suspe nsion 0.5 ML 10:49:13 CDT CPT-94394 First Vx Component - Ix admi n via ID IM or jet inj without physician counseling 15:17:19 INFRASTRUCTURE CONSULTANT CPT-92804 Pneumovax 15:17:19 INFRASTRUCTURE CONSULTANT CPT-05843 Pneumovax 14:52:45 INFRASTRUCTURE CONSULTANT CPT-34736 Venipuncture Draw Fee 14:06:30 INFRASTRUCTURE CONSULTANT CPT-000 Give Appropriate Flu Vaccine 14:18:34 INFRASTRUCTURE CONSULTANT 2 CPT-27748 Administration single or combination vac cine inc oral 14:46:00 INFRASTRUCTURE CONSULTANT CPT-19031 Influenza split virus > age 3 14:46:00 INFRASTRUCTURE CONSULTANT CPT-OV Office Visit 19:13:16 CDT CPT-28904 Zostavax 18:41:56 CDT CPT-30075 Administration single or combination vac cine inc oral 12:56:39 CDT CPT-54030 Zoster Vaccine (Zostavax) 12:56:39 CDT 2012 CPT-56957 Venipuncture Draw Fee 10:58:57 CDT CPT-55509 Sono pelvis non OB uterus ovaries cervix 17:45:04 CDT CPT-77080 Sono retroperitoneal complete kidneys an d bladder 17:14:36 CDT CPT-OV Office Visit 14:59:38 INFRASTRUCTURE CONSULTANT CPT-J1070 Depo Testosterone 100 mg 14:50:13 CDT 03/05 CPT-84576 Abx/Therapy Injection 14:50:13 CDT CPT-77997 Administration single or combination vac cine inc oral 14:34:43 CDT CPT-68389 Influenza split virus > age 3 14:34:43 CDT CPT-J1070 Depo Testosterone 100 mg 17:37:13 CDT 01/11 CPT-93619 Abx/Therapy Injection 17:37:13 CDT CPT-36015 Venipuncture Draw Fee 16:30:13 CDT CPT-11462 Venipuncture Draw Fee 16:29:43 CDT CPT-J1070 Depo Testosterone 100 mg 14:45:38 CDT 01/11
[2019-10-27 11:30] LABS: ALBUMIN 3.7 GM/DL (3.2-4.5); POTASSIUM 4.4 MMOL/L (3.6-5.0)
--- OUTSIDE RECORDS SUMMARY | 2019-10-27 11:30 | XMS REPORT | Clinical Summary ---
Author Author Admin, Elba Lance [employer] Address Unknown Phone Unavailable Allergies, Adverse Reactions, [...] Morbid obesity due to excess calories 278.01 [facility] t Baltazar Childers MD Morbid obesity Obesity Class II (BMI 35-39.9) 278.01 Refinement 10/26 Baltazar Childers MD Morbid obesity Morbid obesity due to excess calories 278.01 [facility] t Baltazar Childers MD Morbid obesity Obesity Class II (BMI 35-39.9) 278.01 Refinement 01/19 Baltazar Childers MD Morbid obesity Morbid obesity due to excess calories 278.01 [facility] t Baltazar Childers MD Morbid obesity [...] ronary atherosclerosis of unspecified type of vessel, [place] or graft OTH NONSPC ABN FINDNG RAD&OTH [...] Mass Index 37.0-37.9, adult BMI 37-37.9 V85.37 Active Baltazar Childers MD Body Mass Index 37.0-37.9, adult Screening mammogram V76.12 Active Baltazar bynum MD Other screening mammogram Sleep apnea 780.57 Active Baltazar Childers MD Unspecified sleep apnea Influenza Vaccination for Prophylaxis V04.81 Inactive Baltazar Childers MD Need for prophylactic vaccin ation and inoculation against influenza COLON POLYPS ICD-211.3 Inactive Lolis Bynum Pharyngitis ICD-462 Inactive Baltazar Childers MD Influenza Vaccination for Prophylaxis ICD-V04.81 8 Inactive Fadumo Ruiz Medication List Medication Instructions Start Date Stop Date Generic Name NDC Status Provider Patient Instruction INSULIN SYRINGE 27G X 1/2" 0.5 ML use 1 as needed. INSULIN SYRINGE- NEEDLE U-100 [id number] Active Fanny Hudson MA Active MAGNESIUM OXIDE 400 MG ORAL CAPSULE 1 po bid MAGNESIUM OXIDE 50223020207 Active Fadumo Ruiz Active HYDROCODONE-ACETAMINOPHEN 7.5-325 MG ORAL TABLET Take 1 tab every 6-8 hours PRN HYDROCODONE-ACETAMINOPHEN 97424579608 Active Baltazar silverman MD Active HUMALOG 100 UNIT/ML SUBCUTANEOUS SOLUTION Take 10 units with every meal INSULIN LISPRO 79026955749 Active Baltazar Childers MD Active NOVOLOG 100 UNIT/ML SUBCUTANEOUS SOLUTION 5 units with each meal. 2 INSULIN ASPART 32213415888 No Longer Active Fanny Hudson MA Activ e ONGLYZA 2.5 MG TABS TAKE 1 TABLET BY MOUTH EVERY DAY FOR DIABETES 2 SAXAGLIPTIN HCL 53499523989 Active Baltazar Childers MD Active GLIPIZIDE 10MG TABLETS TAKE 2 TABLETS BY MOUTH TWICE DAILY GLIPIZIDE 13277299200 Active Baltazar Childers MD Active TRUE METRIX B/G TEST STRIPS 25'S TEST BLOOD SUGAR TWICE DAILY 03/02 GLUCOSE BLOOD 15226577476 Active KENDALL Juarez Active LEVOTHYROXINE 0.112MG (112MCG) TABS TAKE 1 TABLET BY MOUTH EVERY DAY LEVOTHYROXINE SODIUM 30480989278 Active Baltazar Childers MD Active AMLODIPINE BESYLATE 5MG TABLETS TAKE 1 TABLET BY MOUTH EVERY DAY FOR HYPERTENSION AMLODIPINE BESYLATE 40734880453 Active Estefania Hudson MA Active LANTUS SOLOSTAR 100 UNIT/ML SUBCUTANEOUS SOLUTION PEN- INJECTOR 20 units am and 13 units at night INSULIN GLARGINE 77586623539 Active Baltazar Childers MD Active TRAMADOL HCL 50 MG ORAL TABLET 1 twice a day as needed for pain TRAMADOL HCL 90249717926 No Longer Active Baltazar Childers MD Active ROBAXIN 500 MG ORAL TABLET Take 1.5 (one and one half) tabs once daily METHOCARBAMOL 82077685998 Active Baltazar Childers MD Active TRUE METRIX AIR GLUCOSE METER DEVICE Use as directed BLOOD GLUCOSE MONITORING SUPPL 22136316998 Active Baltazar Childers MD Activ e NORTRIPTYLINE HCL 50 MG ORAL CAPSULE 1 twice a day for neuropathy 2 NORTRIPTYLINE HCL 35840032624 Active Baltazar Childers MD Acti ve ASPIRIN 81 MG TBEC Take one (1) tablet by mouth daily ASPIRIN 66158166446 Active Baltazar Childers MD Active GABAPENTIN 300 MG ORAL CAPSULE 1 three times a day 201 12/03/26 GABAPENTIN 61526579498 No Longer Active Baltazar Childers MD Activ e LISINOPRIL 20 MG ORAL TABLET 1 tablet by mouth daily at night 2016 LISINOPRIL 25112848066 Active Baltazar Childers MD Active ZITHROMAX Z-ISAIAS 250 MG ORAL TABLET Take two tablets to day and then 1 tablet daily for 4 days AZITHROMYCIN 74137846838 No Longer A ctive Baltazar Childers MD Active SUCRALFATE 1 GM ORAL TABLET 1 four times a day to coat the stoma ch SUCRALFATE 63784469100 No Longer Active Baltazar Childers MD Active PEN NEEDLES 31G X 6 MM use 1 daily INSULIN PEN NE EDLE 28121260647 Active KENDALL Juarez Active TOUJEO SOLOSTAR 300 UNIT/ML SUBCUTANEOUS SOLUTION PEN- INJECTOR 10 units SC daily INSULIN GLARGINE 46523311204 No Longer Active Rola abigail Guerraabhilash ARGUETA Active NAPROXEN SODIUM 220 MG ORAL TABLET 1 three times a day as needed NAPROXEN SODIUM 72468585505 No Longer Active Baltazar Childers MD Active ATORVASTATIN CALCIUM 20 MG ORAL TABLET Take 1 tab daily ATORVASTATIN CALCIUM 56794215040 Active Baltazar Childers MD A ctive FUROSEMIDE 40 MG ORAL TABLET Take one by mouth daily FUROSEMIDE 89417002316 Active Baltazar Childers MD Active LISINOPRIL 20 MG ORAL TABLET Take one by mouth daily at bedtime LISINOPRIL 35853380560 No Longer Active Baltazar Childers MD Active ONETOUCH ULTRA BLUE IN VITRO STRIP Test twice a day 07/11/11 GLUCOSE BLOOD 05693992705 No Longer Active Baltazar Childers MD Acti ve TRUEPLUS LANCETS 33G Test twice a day LANCETS 6467157 9534 Active KENDALL Juarez Active TRUEDRAW LANCING DEVICE Test twice a day LANCET DEVICES 81015270419 Active Baltazar Childers MD Active TRUETRACK BLOOD GLUCOSE w/Device KIT Test twice a day BLOOD GLUCOSE MONITORING SUPPL 76134407273 Active Baltazar Childers MD Activ e GABAPENTIN 300 MG ORAL CAPSULE 1 po qd x 2 days, then 1 po BID x 2 days, then 1 po TID GABAPENTIN 06758011691 No Longer Active Baltazar Childers MD Active NAPROXEN 500 MG ORAL TABLET 1 tablet by mouth twice daily NAPROXEN 38165663088 No Longer Active Baltazar Childers MD Active PROAIR HFA 108 (90 Base) MCG/ACT INHALATION AEROSOL SO LUTION 2 puffs four times a day as needed ALBUTEROL SULFATE 69019748759 Active Paul Childers MD Active DEPO-TESTOSTERONE 200 MG/ML INTRAMUSCULAR SOLUTION as directed TESTOSTERONE CYPIONATE 66730504171 No Longer Active Baltazar Childers MD Active LIPITOR 20 MG ORAL TABLET Take one by mouth daily in evening ATORVASTATIN CALCIUM 08721044377 No Longer Active Baltazar Childers MD Active CRESTOR 10 MG ORAL TABLET 1 by mouth every day ROSUVASTATIN CALCIUM 70154212455 No Longer Active Baltazar Childers MD Active PHENTERMINE HCL 37.5 MG ORAL TABLET Take one by mouth daily PHENTERMINE HCL 56026829672 No Longer Active Baltazar Childers MD Ac tive TIZANIDINE HCL 4 MG ORAL TABLET 1 daily as needed for muscle spa sm TIZANIDINE HCL 39415412211 No Longer Active Dawna Salazar RN Active [id number] 50-325-40 MG ORAL TABLET 1 fo ur times a day as needed for heacache [id number] 15454422053 Active KENDALL Juarez Active SUMATRIPTAN SUCCINATE 100 MG ORAL TABLET 1 tablet by m outh at onset of migraine as needed SUMATRIPTAN SUCCINATE 39479205724 Active Fanny Hudson MA Active LORATADINE 10 MG ORAL TABLET Take one by mouth daily LORATADINE 59239964308 Active Fanny Hudson MA Active OMEPRAZOLE 20 MG ORAL CAPSULE DELAYED RELEASE Take one by mouth jostin ly OMEPRAZOLE 00886639670 Active Baltazar Childers MD Active HYDROXYZINE HCL 25 MG ORAL TABLET Take one by mouth daily HYDROXYZINE HCL 19385621104 Active Baltazar Childers MD Active ALPRAZOLAM 1 MG ORAL TABLET 1 tablet by mouth daily at [facility] ALPRAZOLAM 47336945320 Active Fanny Hudson MA Active METFORMIN HCL 1000 MG ORAL TABLET Take one by mouth twice daily METFORMIN HCL 95464337021 Active Baltazar Childers MD Active TIZANIDINE HCL 4 MG ORAL TABLET 1 daily as needed for muscle spa sm TIZANIDINE HCL 4 MG ORAL TABLET 137871 TIZANIDINE HCL Inactive PHENTERMINE HCL 37.5 MG ORAL TABLET Take one by mouth daily PHENTERMINE HCL 37.5 MG ORAL TABLET 618732 PHENTERMINE HCL Inac tive CRESTOR 10 MG ORAL TABLET 1 by mouth every day CRESTOR 10 MG ORAL TABLET 886585 ROSUVASTATIN CALCIUM Inactive LIPITOR 20 MG ORAL TABLET Take one by mouth daily in evening LIPITOR 20 MG ORAL TABLET 114018 ATORVASTATIN CALCIUM Inactive DEPO-TESTOSTERONE 200 MG/ML INTRAMUSCULAR SOLUTION as directed DEPO-TESTOSTERONE 200 MG/ML INTRAMUSCULAR SOLUTION 5189351 RUFINO TOSTERONE CYPIONATE Inactive NAPROXEN 500 MG ORAL TABLET 1 tablet by mouth twice daily NAPROXEN 500 MG ORAL TABLET 659282 NAPROXEN Inactive GABAPENTIN 300 MG ORAL CAPSULE 1 po qd x 2 days, then 1 po BID x 2 days, then 1 po TID GABAPENTIN 300 MG ORAL CAPSULE 716935 GABAP ENTIN Inactive ONETOUCH ULTRA BLUE IN VITRO STRIP Test twice a day 07/11/11 ONETOUCH ULTRA BLUE IN VITRO STRIP GLUCOSE BLOOD Inact amie NAPROXEN SODIUM 220 MG ORAL TABLET 1 three times a day as needed NAPROXEN SODIUM 220 MG ORAL TABLET 07517318770 NAPROXEN SODI UM Inactive TOUJEO SOLOSTAR 300 UNIT/ML SUBCUTANEOUS SOLUTION PEN- INJECTOR 10 units SC daily TOUJEO SOLOSTAR 300 UNIT/ML SUBCUTANEOUS SOLUTION PEN-INJECTOR INSULIN GLARGINE Inactive SUCRALFATE 1 GM ORAL TABLET 1 four times a day to coat the stoma ch SUCRALFATE 1 GM ORAL TABLET 968904 SUCRALFATE Inac tive GABAPENTIN 300 MG ORAL CAPSULE 1 three times a day 201 12/03/26 GABAPENTIN 300 MG ORAL CAPSULE 653568 GABAPENTIN Inactive TRAMADOL HCL 50 MG ORAL TABLET 1 twice a day as needed for pain TRAMADOL HCL 50 MG ORAL TABLET 446324 TRAMADOL HCL I nactive ZITHROMAX Z-ISAIAS 250 MG ORAL TABLET Take two tablets to day and then 1 tablet daily for 4 days ZITHROMAX Z-ISAIAS 250 MG ORAL TAB LET 500635 AZITHROMYCIN Inactive Immunizations Vaccine Administration Date Value [...] Fluarix, Agriflu(>= 18 yo)) Fluzone (>3 yrs.) [[id number]] Influenza, seasonal, inject able Seasonal influenza vaccine, injectable, containing preservative, for > 3 years old (Afluria, FluLaval, Fluzone, Fluvirin, Fluarix, Agriflu(>= 18 yo)) Fluzone (>3 yrs.) [[id number]] Influenza, seasonal, inject able Vital Signs Date Name Value Unit Range Description blood pressure, diastolic, repeated by physician 74 [...] - Chem istry sodium, serum 136 mmol/L 032-068 6864/06/04 potassium, serum 4.9 mmol/L 3.5-5.2 chloride, serum 97 mmol/L 98-107 carbon dioxide, venous blood 35.3 mmol/L 21.0-32 .0 blood glucose 239 mg/dL 65-95 calcium, serum 10.6 mg/dL 8.5-10.1 urea nitrogen, blood 31 mg/dL 7-18 creatinine, serum 2.33 mg/dL 0.60-1.30 Estimated Glomerular Filtration Rate (calc) 23 (?) mL/min/1.73m2 = OR > 60 mL/min sodium, serum 141 mmol/L 735-670 0165/07/09 potassium, serum 4.9 mmol/L 3.5-5.2 chloride, serum [...] C - Chemistry sodium, serum 137 mmol/L 067-812 7365/10/17 potassium, serum 4.9 mmol/L 3.5-5.2 chloride, serum [...] Ordered Encounters Code Encounter Date Provider Facility CPT-61736 [id number] Vst-Est Level IV 14:22:53 ANCHOR TACKER Charlie Childers MD [facility] CPT-25506 [id number] Vst-Est Level IV 15:48:51 ANCHOR TACKER Charlie Childers MD [facility] CPT-04697 [id number] Vst-Est Level V 14:28:39 CDT Aneudy Childers MD [facility] CPT-05825 03714-Fpz Vst-Est Level IV 15:03:32 CDT Charlie Childers MD [facility] CPT-75840 67289-Wrp Vst-Est Level III 15:51:57 CDT Baltazar Childers MD [facility] CPT-41045 41457-Pyi Vst-Est Level IV 15:14:58 CDT Charlie Childers MD [facility] CPT-41494 01806-Guq Vst-Est Level IV 15:12:52 ANCHOR TACKER Charlie Childers MD [facility] CPT-69220 99228-Noc Vst-Est Level IV 15:30:55 ANCHOR TACKER Charlie Childers MD [facility] CPT-06942 78269-Wgx Vst-Est Level IV 13:49:06 C ELIOT Martinez PA-C [facility] CPT-07671 Level 4 Est. Patient 17:26:08 CDT Ann trujillo PA-C [facility]-37839 04728-Wug Vst-Est Level V 14:26:27 CDT Aneudy Childers MD [facility]-44736 Level 4 Est. Patient 17:05:37 CDT Baltazar Childers MD [facility]-79141 Level 4 Est. Patient 16:21:19 ANCHOR TACKER Baltazar Childers MD [facility]-10475 Level 4 Est. Patient 12:25:11 CDT Baltazar Childers MD [facility]-13205 Level 4 Est. Patient 14:22:31 CDT Baltazar Childers MD [facility]-37376 Level 4 Est. Patient 15:44:38 [facility] Level 4 Est. Patient 11:34:17 CDT Baltazar Childers MD [facility]-17902 Level 3 Est. Patient 16:40:40 CDT Baltazar Childers MD [facility]-38432 Level 4 Est. Patient 10:41:24 CDT Baltazar Childers MD [facility]-11609 Level 4 Est. Patient 16:01:48 CDT Baltazar Childers MD [facility]-69920 Level 4 Est. Patient 16:54:07 ANCHOR TACKER Baltazar Childesr MD [facility]-44728 Level 4 Est. Patient 15:42:12 CDT Baltazar Childers MD [facility] CPT-79012 Level 4 Est. Patient 11:29:55 CDT Baltazar Childers MD [facility] CPT-08282 Level 4 Est. Patient 14:15:19 CDT Baltazar Childers MD [facility] CPT-70683 Level 4 Est. Patient 12:20:13 CDT aBltazar Childers MD [facility] CPT-43853 Level 4 Est. Patient 14:52:45 ANCHOR TACKER Baltazar Childers MD [facility] CPT-57600 Level 4 Est. Patient 14:18:34 ANCHOR TACKER Baltazar Childers MD [facility] CPT-88056 Level 4 Est. Patient 15:18:29 CDT Baltazar Childers MD [facility] CPT-03482 Level 3 Est. Patient 12:45:34 CDT Baltazar Childers MD [facility] CPT-63481 Level 3 Est. Patient 10:10:11 CDT Baltazar Childers MD [facility] CPT-85515 Level 3 Est. Patient 14:07:50 CDT Baltazar Childers MD [facility] CPT-37971 Level 4 Est. Patient 12:26:10 ANCHOR TACKER Baltazar Childers MD [facility] CPT-68245 Level 4 Est. Patient 14:45:38 CDT Baltazar Childers MD [facility] CPT-64590 Level 4 New Patient 12:30:48 CDT Baltazar hinton MD [facility] Procedures Code Procedure Name Date Entry Date Standard Desc ription CPT-000 Give Appropriate Flu Vaccine 14:07:28 ANCHOR TACKER 2 CPT-25787 Venipuncture Draw Fee 16:24:55 ANCHOR TACKER CPT-29079 59814 - Immun Admin 1 vac 14:54:52 ANCHOR TACKER 2019 CPT-68701 Fluzone Quadrivalent (Flu) 0.5 mL 10Pk S yringe IM 14:54:52 ANCHOR TACKER CPT-PM1159V (4013F) Statin therapy prescribed or cur rently being taken 14:07:28 ANCHOR TACKER CPT-IE0528T (3066F) Documentation of treatment for n ephropathy 14:07:28 ANCHOR TACKER CPT-82491 Venipuncture Draw Fee 17:47:23 CDT CPT-26430 4M Drug Screen cup test, Multi-panel, urine 2018 14:28:39 CDT CPT-54712 Venipuncture Draw Fee 15:19:00 CDT CPT-000 Give Appropriate Flu Vaccine 12:25:14 CDT 2 CPT-13877 First Vx - Ix admin via ID I M or jet injects without counseling by physician 13:08:59 CDT CPT-76465 Fluzone Quadrivalent Intramuscular Suspe nsion 0.5 ML 13:08:59 CDT CPT-51997 Venipuncture Draw Fee 12:04:12 CDT CPT-46573 Lipid - LAB USE ONLY 17:39:15 ANCHOR TACKER 9 CPT-63313 HGBA1C - LAB USE ONLY 17:39:15 ANCHOR TACKER CPT-91046 CMP - LAB USE ONLY 17:39:14 ANCHOR TACKER CPT-04270 Venipuncture Draw Fee 17:39:14 ANCHOR TACKER CPT-63152 First Vx - Ix admin via ID I M or jet injects without counseling by physician 16:55:17 ANCHOR TACKER CPT-17866 Fluzone Quadrivalent Intramuscular Suspe nsion 0.5 ML 16:55:17 ANCHOR TACKER CPT-15535 Renal Panel - LAB USE ONLY 17:39:20 CDT 201 10/31/07 CPT-10673 CBC - LAB USE ONLY 17:39:20 CDT CPT-63016 Venipuncture Draw Fee 17:39:20 CDT CPT-48932 Venipuncture Draw Fee 14:33:30 CDT CPT-10969 Renal Panel - LAB USE ONLY 14:33:30 CDT 201 10/31/07 CPT-45918 CBC - LAB USE ONLY 14:33:29 CDT CPT-37043 Venipuncture Draw Fee 14:50:21 ANCHOR TACKER CPT-47378 Immunization Single Admin 17:35:35 CDT 2014 CPT-06066 Fluzone Quadrivalent preservative free ( >=3yrs.) 17:35:35 CDT CPT-53852 Venipuncture Draw Fee 12:10:27 ANCHOR TACKER CPT-80550 Fluzone Quadrivalent Intramuscular Suspe nsion 0.5 ML 10:49:13 CDT CPT-62622 First Vx Component - Ix admi n via ID IM or jet inj without physician counseling 15:17:19 ANCHOR TACKER CPT-03077 Pneumovax 23 15:17:19 ANCHOR TACKER CPT-00765 Pneumovax 14:52:45 ANCHOR TACKER CPT-84505 Venipuncture Draw Fee 14:06:30 ANCHOR TACKER CPT-000 Give Appropriate Flu Vaccine 14:18:34 ANCHOR TACKER 2 CPT-90160 Administration single or combination vac cine inc oral 14:46:00 ANCHOR TACKER CPT-39948 Influenza split virus > age 3 14:46:00 ANCHOR TACKER CPT-OV Office Visit 19:13:16 CDT CPT-89573 Zostavax 18:41:56 CDT CPT-40875 Administration single or combination vac cine inc oral 12:56:39 CDT CPT-51070 Zoster Vaccine (Zostavax) 12:56:39 CDT 2012 CPT-95944 Venipuncture Draw Fee 10:58:57 CDT CPT-59905 Sono pelvis non OB uterus ovaries cervix 17:45:04 CDT CPT-25585 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
--- OUTSIDE RECORDS SUMMARY | 2019-10-27 11:30 | XMS REPORT | Clinical Summary ---
Author Author Admin, [facility] Address Unknown Phone Unavailable Allergies, Adverse [...] Morbid obesity due to excess calories 278.01 [facility] t Baltazar Childers MD Morbid obesity Obesity Class II (BMI 35-39.9) 278.01 Refinement 10/26 Baltazar Childers MD Morbid obesity Morbid obesity due to excess calories 278.01 [facility] t Baltazar Childers MD Morbid obesity Obesity Class II (BMI 35-39.9) 278.01 Refinement 01/19 Baltazar Childers MD Morbid obesity Morbid obesity due to excess calories 278.01 [facility] t Baltazar Childers MD Morbid obesity [...] ronary atherosclerosis of unspecified type of vessel, point lay ira or graft OTH NONSPC ABN FINDNG RAD&OTH [...] COLON POLYPS ICD-211.3 Inactive Lolis King JOSE N Pharyngitis ICD-462 Inactive Baltazar Childers MD Influenza Vaccination for Prophylaxis ICD-V04.81 8 Inactive Fadumo Ruiz Medication List Medication Instructions Start Date Stop Date Generic Name NDC Status Provider Patient Instruction HYDROCODONE-ACETAMINOPHEN 7.5-325 MG ORAL TABLET Take 1 tab every 6-8 hours PRN HYDROCODONE-ACETAMINOPHEN 36260060953 Active Baltazar silverman MD Active SUCRALFATE 1 GM TABS 1 four times a day 1 hour before meals and at bedtime SUCRALFATE 22429665013 Active Baltazar Childers MD Active INSULIN SYRINGE 27G X 1/2" 0.5 ML use 1 as needed. INSULIN SYRINGE- NEEDLE U-100 47811562447 Active Fanny Hudson MA Active MAGNESIUM OXIDE 400 MG ORAL CAPSULE 1 po bid MAGNESIUM OXIDE 59250344218 Active Fadumo Ruiz Active HUMALOG 100 UNIT/ML SUBCUTANEOUS SOLUTION Take 10 units with every meal INSULIN LISPRO 61691195971 Active Baltazar Childers MD Active NOVOLOG 100 UNIT/ML SUBCUTANEOUS SOLUTION 5 units with each meal. 2 INSULIN ASPART 22974761494 No Longer Active Fanny Hudson MA Activ e ONGLYZA 2.5 MG TABS TAKE 1 TABLET BY MOUTH EVERY DAY FOR DIABETES 2 SAXAGLIPTIN HCL 15902546196 Active Baltazar Childers MD Active GLIPIZIDE 10MG TABLETS TAKE 2 TABLETS BY MOUTH TWICE DAILY GLIPIZIDE 74599325354 Active Baltazar Childers MD Active TRUE METRIX B/G TEST STRIPS 25'S TEST BLOOD SUGAR TWICE DAILY 03/02 GLUCOSE BLOOD 78273028749 Active KENDALL Juarez Active LEVOTHYROXINE 0.112MG (112MCG) TABS TAKE 1 TABLET BY MOUTH EVERY DAY LEVOTHYROXINE SODIUM 93373028078 Active Baltazar Childers MD Active AMLODIPINE BESYLATE 5MG TABLETS TAKE 1 TABLET BY MOUTH EVERY DAY FOR HYPERTENSION AMLODIPINE BESYLATE 91091399595 Active Estefania Hudson MA Active LANTUS SOLOSTAR 100 UNIT/ML SUBCUTANEOUS SOLUTION PEN- INJECTOR 20 units am and 13 units at night INSULIN GLARGINE 66044096398 Active Baltazar Childers MD Active TRAMADOL HCL 50 MG ORAL TABLET 1 twice a day as needed for pain TRAMADOL HCL 50589326246 No Longer Active Baltazar Childers MD Active ROBAXIN 500 MG ORAL TABLET Take 1.5 (one and one half) tabs once daily METHOCARBAMOL 00200530633 Active Baltazar Childers MD Active TRUE METRIX AIR GLUCOSE METER DEVICE Use as directed BLOOD GLUCOSE MONITORING SUPPL 88608852969 Active Baltazar Childers MD Activ e NORTRIPTYLINE HCL 50 MG ORAL CAPSULE 1 twice a day for neuropathy 2 NORTRIPTYLINE HCL 62553890398 Active Baltazar Childers MD Acti ve ASPIRIN 81 MG TBEC Take one (1) tablet by mouth daily ASPIRIN 82074039422 Active Baltazar Childers MD Active GABAPENTIN 300 MG ORAL CAPSULE 1 three times a day 201 12/03/26 GABAPENTIN 93587386761 No Longer Active Baltazar Childers MD Activ e LISINOPRIL 20 MG ORAL TABLET 1 tablet by mouth daily at night 2016 LISINOPRIL 96937795654 Active Baltazar Childers MD Active ZITHROMAX Z-ISAIAS 250 MG ORAL TABLET Take two tablets to day and then 1 tablet daily for 4 days AZITHROMYCIN 87076308551 No Longer A ctive Baltazar Childers MD Active SUCRALFATE 1 GM ORAL TABLET 1 four times a day to coat the stoma ch SUCRALFATE 08146826713 No Longer Active Baltazar Childers MD Active PEN NEEDLES 31G X 6 MM use 1 daily INSULIN PEN NE EDLE 15386537782 Active KENDALL Juarez Active TOURINKUO SOLOSTAR 300 UNIT/ML SUBCUTANEOUS SOLUTION PEN- INJECTOR 10 units SC daily INSULIN GLARGINE 22051896395 No Longer Active Rola abigail Guerrab RMBetsey Active NAPROXEN SODIUM 220 MG ORAL TABLET 1 three times a day as needed NAPROXEN SODIUM 48369861417 No Longer Active Baltazar Childers MD Active ATORVASTATIN CALCIUM 20 MG ORAL TABLET Take 1 tab daily ATORVASTATIN CALCIUM 31689933829 Active Baltazar Childers MD A ctive FUROSEMIDE 40 MG ORAL TABLET Take one by mouth daily FUROSEMIDE 86182799873 Active Baltazar Childers MD Active LISINOPRIL 20 MG ORAL TABLET Take one by mouth daily at bedtime LISINOPRIL 08971852258 No Longer Active Baltazar Childers MD Active ONETOUCH ULTRA BLUE IN VITRO STRIP Test twice a day 07/11/11 GLUCOSE BLOOD 93746809822 No Longer Active Baltazar Childers MD Acti ve TRUEPLUS LANCETS 33G Test twice a day LANCETS 2558847 6324 Active KENDALL Juarez Active TRUEDRAW LANCING DEVICE Test twice a day LANCET DEVICES 39173695860 Active Baltazar Childers MD Active TRUETRACK BLOOD GLUCOSE w/Device KIT Test twice a day BLOOD GLUCOSE MONITORING SUPPL 00886706012 Active Baltazar Childers MD Activ e GABAPENTIN 300 MG ORAL CAPSULE 1 po qd x 2 days, then 1 po BID x 2 days, then 1 po TID GABAPENTIN 74245342869 No Longer Active Baltazar Childers MD Active NAPROXEN 500 MG ORAL TABLET 1 tablet by mouth twice daily NAPROXEN 18690086568 No Longer Active Baltazar Childers MD Active PROAIR HFA 108 (90 Base) MCG/ACT INHALATION AEROSOL SO LUTION 2 puffs four times a day as needed ALBUTEROL SULFATE 45990444118 Active R gilberto Childers MD Active DEPO-TESTOSTERONE 200 MG/ML INTRAMUSCULAR SOLUTION as directed TESTOSTERONE CYPIONATE 86786417910 No Longer Active Baltazar Childers MD Active LIPITOR 20 MG ORAL TABLET Take one by mouth daily in evening ATORVASTATIN CALCIUM 83424827002 No Longer Active Baltazar Childers MD Active CRESTOR 10 MG ORAL TABLET 1 by mouth every day ROSUVASTATIN CALCIUM 15306742735 No Longer Active Baltazar Childers MD Active PHENTERMINE HCL 37.5 MG ORAL TABLET Take one by mouth daily PHENTERMINE HCL 49275025791 No Longer Active Baltazar Childers MD Ac tive TIZANIDINE HCL 4 MG ORAL TABLET 1 daily as needed for muscle spa sm TIZANIDINE HCL 56054087855 No Longer Active Dawna Salazar RN Active [id number] 50-325-40 MG ORAL TABLET 1 fo ur times a day as needed for heacache [id number] 04090869367 Active KENDALL Juarez Active SUMATRIPTAN SUCCINATE 100 MG ORAL TABLET 1 tablet by m out at onset of migraine as needed SUMATRIPTAN SUCCINATE 58837770062 Active Fanny Hudson MA Active LORATADINE 10 MG ORAL TABLET Take one by mouth daily LORATADINE 71062434727 Active Fanny Hudson MA Active OMEPRAZOLE 20 MG ORAL CAPSULE DELAYED RELEASE Take one by mouth jostin ly OMEPRAZOLE 71011897961 Active Baltazar Childers MD Active HYDROXYZINE HCL 25 MG ORAL TABLET Take one by mouth daily HYDROXYZINE HCL 45017344924 Active Baltazar Childers MD Active ALPRAZOLAM 1 MG ORAL TABLET 1 tablet by mouth daily at [facility] ALPRAZOLAM 70794670602 Active Baltazar Childers MD Active METFORMIN HCL 1000 MG ORAL TABLET Take one by mouth twice daily METFORMIN HCL 52697456657 Active Baltazar Childers MD Active NAPROXEN 500 MG ORAL TABLET 1 tablet by mouth twice daily NAPROXEN 500 MG ORAL TABLET 245331 NAPROXEN Inactive PHENTERMINE HCL 37.5 MG ORAL TABLET Take one by mouth daily PHENTERMINE HCL 37.5 MG ORAL TABLET 940688 PHENTERMINE HCL Inac tive SUCRALFATE 1 GM ORAL TABLET 1 four times a day to coat the stoma ch SUCRALFATE 1 GM ORAL TABLET 290906 SUCRALFATE Inac tive NAPROXEN SODIUM 220 MG ORAL TABLET 1 three times a day as needed NAPROXEN SODIUM 220 MG ORAL TABLET 01041471739 NAPROXEN SODI UM Inactive TRAMADOL HCL 50 MG ORAL TABLET 1 twice a day as needed for pain TRAMADOL HCL 50 MG ORAL TABLET 739909 TRAMADOL HCL I nactive TIZANIDINE HCL 4 MG ORAL TABLET 1 daily as needed for muscle spa sm TIZANIDINE HCL 4 MG ORAL TABLET 851745 TIZANIDINE HCL Inactive GABAPENTIN 300 MG ORAL CAPSULE 1 po qd x 2 days, then 1 po BID x 2 days, then 1 po TID GABAPENTIN 300 MG ORAL CAPSULE 171290 GABAP ENTIN Inactive GABAPENTIN 300 MG ORAL CAPSULE 1 three times a day 201 12/03/26 GABAPENTIN 300 MG ORAL CAPSULE 515639 GABAPENTIN Inactive LIPITOR 20 MG ORAL TABLET Take one by mouth daily in evening LIPITOR 20 MG ORAL TABLET 619789 ATORVASTATIN CALCIUM Inactive ONETOUCH ULTRA BLUE IN VITRO STRIP Test twice a day 07/11/11 ONETOUCH ULTRA BLUE IN VITRO STRIP GLUCOSE BLOOD Inact amie ZITHROMAX Z-ISAIAS 250 MG ORAL TABLET Take two tablets to day and then 1 tablet daily for 4 days ZITHROMAX Z-ISAIAS 250 MG ORAL TAB LET 465792 AZITHROMYCIN Inactive CRESTOR 10 MG ORAL TABLET 1 by mouth every day CRESTOR 10 MG ORAL TABLET 988680 ROSUVASTATIN CALCIUM Inactive DEPO-TESTOSTERONE 200 MG/ML INTRAMUSCULAR SOLUTION as directed DEPO-TESTOSTERONE 200 MG/ML INTRAMUSCULAR SOLUTION 5251674 RUFINO TOSTERONE CYPIONATE Inactive TOUJEO SOLOSTAR 300 UNIT/ML SUBCUTANEOUS SOLUTION [...] Fluarix, Agriflu(>= 18 yo)) Fluzone (>3 yrs.) [[id number]] Influenza, seasonal, inject able Seasonal influenza vaccine, injectable, containing preservative, for > 3 years old (Afluria, FluLaval, Fluzone, Fluvirin, Fluarix, Agriflu(>= 18 yo)) Fluzone (>3 yrs.) [[id number]] Influenza, seasonal, inject able Vital Signs Date [...] - Chem istry sodium, serum 136 mmol/L 203-752 9608/06/04 potassium, serum 4.9 mmol/L 3.5-5.2 chloride, serum 97 mmol/L 98-107 carbon dioxide, venous blood 35.3 mmol/L 21.0-32 .0 blood glucose 239 mg/dL 65-95 calcium, serum 10.6 mg/dL 8.5-10.1 urea nitrogen, blood 31 mg/dL 7-18 creatinine, serum 2.33 mg/dL 0.60-1.30 Estimated Glomerular Filtration Rate (calc) 23 (?) mL/min/1.73m2 = OR > 60 mL/min sodium, serum 141 mmol/L 885-201 2371/07/09 potassium, serum 4.9 mmol/L 3.5-5.2 chloride, serum [...] C - Chemistry sodium, serum 137 mmol/L 464-315 2171/10/17 potassium, serum 4.9 mmol/L 3.5-5.2 chloride, serum [...] Ordered Encounters Code Encounter Date Provider Facility CPT-31097 [id number] Vst-Est Level IV 14:22:53 SURGICAL ASST Charlie Childers MD [facility] CPT-91810 [id number] Vst-Est Level IV 15:48:51 SURGICAL ASST Charlie Childers MD [facility] CPT-18824 [id number] Vst-Est Level V 14:28:39 CDT Aneudy Childers MD [facility] CPT-71037 21790-Feg Vst-Est Level IV 15:03:32 CDT Charlie Childers MD [facility] CPT-91623 98636-Fqo Vst-Est Level III 15:51:57 CDT Baltazar Childers MD [facility] CPT-11211 74911-Obn Vst-Est Level IV 15:14:58 CDT Charlie Childers MD [facility] CPT-64820 94539-Ngf Vst-Est Level IV 15:12:52 SURGICAL ASST Charlie Childers MD [facility] CPT-65117 94232-Gxr Vst-Est Level IV 15:30:55 SURGICAL ASST Charlie Childers MD [facility] CPT-43377 48866-Wwj Vst-Est Level IV 13:49:06 Bayron JACOBO[facility] CPT-01865 Level 4 Est. Patient 17:26:08 [facility] 44339-Xji Vst-Est Level V 14:26:27 CDT Aneudy Childers MD [facility] CPT-08346 Level 4 Est. Patient 17:05:37 CDT Baltazar Childers MD [facility]-55528 Level 4 Est. Patient 16:21:19 SURGICAL ASST Baltazar Childers MD [facility]-85457 Level 4 Est. Patient 12:25:11 CDT Baltazar Childers MD [facility]-02259 Level 4 Est. Patient 14:22:31 CDT Baltazar Childers MD [facility]-39572 Level 4 Est. Patient 15:44:38 CDT Shonna Parker APRN [facility] CPT-97614 Level 4 Est. Patient 11:34:17 CDT Baltazar Childers MD [facility]-32951 Level 3 Est. Patient 16:40:40 CDT Baltazar Childers MD [facility]-07065 Level 4 Est. Patient 10:41:24 CDT Baltazar Childers MD [facility]-13453 Level 4 Est. Patient 16:01:48 CDT Baltazar Childers MD [facility]-75158 Level 4 Est. Patient 16:54:07 SURGICAL ASST Baltazar Childers MD [facility]-77426 Level 4 Est. Patient 15:42:12 CDT Baltazar Childers MD [facility] CPT-15117 Level 4 Est. Patient 11:29:55 CDT Baltazar Childers MD [facility] CPT-92288 Level 4 Est. Patient 14:15:19 CDT Baltazar Childers MD [facility] CPT-63008 Level 4 Est. Patient 12:20:13 CDT Baltazar Childers MD [facility] CPT-95378 Level 4 Est. Patient 14:52:45 SURGICAL ASST Baltazar Childers MD [facility] CPT-62114 Level 4 Est. Patient 14:18:34 SURGICAL ASST Baltazar Childers MD [facility] CPT-90834 Level 4 Est. Patient 15:18:29 CDT Baltazar Childers MD [facility] CPT-58923 Level 3 Est. Patient 12:45:34 CDT Baltazar Childers MD [facility] CPT-81258 Level 3 Est. Patient 10:10:11 CDT Baltazar Childers MD [facility] CPT-28788 Level 3 Est. Patient 14:07:50 CDT Baltazar Childers MD [facility] CPT-36303 Level 4 Est. Patient 12:26:10 SURGICAL ASST Baltazar Childers MD [facility] CPT-41465 Level 4 Est. Patient 14:45:38 CDT Baltazar Childers MD [facility] CPT-36832 Level 4 New Patient 12:30:48 CDT Baltazar hinton MD [facility] Procedures Code Procedure Name Date Entry Date Standard Desc ription CPT-000 Give Appropriate Flu Vaccine 14:07:28 SURGICAL ASST 2 CPT-60732 Venipuncture Draw Fee 16:24:55 SURGICAL ASST CPT-76796 28529 - Immun Admin 1 vac 14:54:52 SURGICAL ASST 2019 CPT-24251 Fluzone Quadrivalent (Flu) 0.5 mL 10Pk S yringe IM 14:54:52 SURGICAL ASST CPT-DC9018H (4013F) Statin therapy prescribed or cur rently being taken 14:07:28 SURGICAL ASST CPT-YU9704R (3066F) Documentation of treatment for n ephropathy 14:07:28 SURGICAL ASST CPT-31997 Venipuncture Draw Fee 17:47:23 CDT CPT-71418 4M Drug Screen cup test, Multi-panel, urine 2018 14:28:39 CDT CPT-85903 Venipuncture Draw Fee 15:19:00 CDT CPT-000 Give Appropriate Flu Vaccine 12:25:14 CDT 2 CPT-70164 First Vx - Ix admin via ID I M or jet injects without counseling by physician 13:08:59 CDT CPT-56599 Fluzone Quadrivalent Intramuscular Suspe nsion 0.5 ML 13:08:59 CDT CPT-76378 Venipuncture Draw Fee 12:04:12 CDT CPT-38094 Lipid - LAB USE ONLY 17:39:15 SURGICAL ASST 9 CPT-81485 HGBA1C - LAB USE ONLY 17:39:15 SURGICAL ASST CPT-48140 CMP - LAB USE ONLY 17:39:14 SURGICAL ASST CPT-14413 Venipuncture Draw Fee 17:39:14 SURGICAL ASST CPT-10349 First Vx - Ix admin via ID I M or jet injects without counseling by physician 16:55:17 SURGICAL ASST CPT-25930 Fluzone Quadrivalent Intramuscular Suspe nsion 0.5 ML 16:55:17 SURGICAL ASST CPT-09731 Renal Panel - LAB USE ONLY 17:39:20 CDT 201 10/31/07 CPT-37468 CBC - LAB USE ONLY 17:39:20 CDT CPT-99405 Venipuncture Draw Fee 17:39:20 CDT CPT-16813 Venipuncture Draw Fee 14:33:30 CDT CPT-34671 Renal Panel - LAB USE ONLY 14:33:30 CDT 201 10/31/07 CPT-99294 CBC - LAB USE ONLY 14:33:29 CDT CPT-38998 Venipuncture Draw Fee 14:50:21 SURGICAL ASST CPT-43552 Immunization Single Admin 17:35:35 CDT 2014 CPT-80792 Fluzone Quadrivalent preservative free ( >=3yrs.) 17:35:35 CDT CPT-50828 Venipuncture Draw Fee 12:10:27 SURGICAL ASST CPT-46293 Fluzone Quadrivalent Intramuscular Suspe nsion 0.5 ML 10:49:13 CDT CPT-74069 First Vx Component - Ix admi n via ID IM or jet inj without physician counseling 15:17:19 SURGICAL ASST CPT-10832 Pneumovax 23 15:17:19 SURGICAL ASST CPT-95042 Pneumovax 14:52:45 SURGICAL ASST CPT-56004 Venipuncture Draw Fee 14:06:30 SURGICAL ASST CPT-000 Give Appropriate Flu Vaccine 14:18:34 SURGICAL ASST 2 CPT-48514 Administration single or combination vac cine inc oral 14:46:00 SURGICAL ASST CPT-29840 Influenza split virus > age 3 14:46:00 SURGICAL ASST CPT-OV Office Visit 19:13:16 CDT CPT-74764 Zostavax 18:41:56 CDT CPT-17357 Administration single or combination vac cine inc oral 12:56:39 CDT CPT-63737 Zoster Vaccine (Zostavax) 12:56:39 CDT 2012 CPT-32816 Venipuncture Draw Fee 10:58:57 CDT CPT-43524 Sono pelvis non OB uterus ovaries cervix 17:45:04 CDT CPT-24985 Sono retroperitoneal complete kidneys an d bladder 17:14:36 CDT CPT-OV Office Visit 14:59:38 SURGICAL ASST CPT-J1070 Depo Testosterone 100 mg 14:50:13 CDT 03/05 CPT-72511 Abx/Therapy Injection 14:50:13 CDT CPT-44113 Administration single or combination vac cine inc oral 14:34:43 CDT CPT-09366 Influenza split virus > age 3 14:34:43 CDT CPT-J1070 Depo Testosterone 100 mg 17:37:13 CDT 01/11 CPT-12619 Abx/Therapy Injection 17:37:13 CDT CPT-47252 Venipuncture Draw Fee 16:30:13 CDT CPT-71570 Venipuncture Draw Fee 16:29:43 CDT CPT-J1070 Depo Testosterone 100 mg 14:45:38 CDT 01/11
[2019-10-27 11:31] LABS: CALCIUM 10.2 MG/DL (8.5-10.1)
--- OUTSIDE RECORDS SUMMARY | 2019-10-27 11:31 | XMS REPORT | Clinical Summary ---
Author Author Admin, Elba [facility] Address Unknown Phone Unavailable Allergies, Adverse Reactions, [...] Morbid obesity due to excess calories 278.01 [facility] t Baltazar Childers MD Morbid obesity Obesity Class II (BMI 35-39.9) 278.01 Refinement 10/26 Baltazar Childers MD Morbid obesity Morbid obesity due to excess calories 278.01 [facility] t Baltazar Childers MD Morbid obesity Obesity Class II (BMI 35-39.9) 278.01 Refinement 01/19 Baltazar Childers MD Morbid obesity Morbid obesity due to excess calories 278.01 [facility] t Baltazar Childers MD Morbid [...] ronary atherosclerosis of unspecified type of vessel, chinik or graft OTH NONSPC ABN FINDNG RAD&OTH [...] 1 as needed. INSULIN SYRINGE- NEEDLE U-100 05516367652 Active Fanny Hudson MA Active MAGNESIUM OXIDE 400 MG ORAL CAPSULE 1 po bid MAGNESIUM OXIDE 75584450667 Active Fadumo Ruiz Active HYDROCODONE-ACETAMINOPHEN 7.5-325 MG ORAL TABLET Take 1 tab every 6-8 hours PRN HYDROCODONE-ACETAMINOPHEN 16642879955 Active Baltazar silverman MD Active HUMALOG 100 UNIT/ML SUBCUTANEOUS SOLUTION Take 10 units with every meal INSULIN LISPRO 21084044403 Active Baltazar Childers MD Active NOVOLOG 100 UNIT/ML SUBCUTANEOUS SOLUTION 5 units with each meal. 2 INSULIN ASPART 88889214180 No Longer Active Fanny Hudson MA Activ e ONGLYZA 2.5 MG TABS TAKE 1 TABLET BY MOUTH EVERY DAY FOR DIABETES 2 SAXAGLIPTIN HCL 88861477851 Active Baltazar Childers MD Active GLIPIZIDE 10MG TABLETS TAKE 2 TABLETS BY MOUTH TWICE DAILY GLIPIZIDE 68618837624 Active Baltazar Childers MD Active TRUE METRIX B/G TEST STRIPS 25'S TEST BLOOD SUGAR TWICE DAILY 03/02 GLUCOSE BLOOD 15037318627 Active KENDALL Juarez Active LEVOTHYROXINE 0.112MG (112MCG) TABS TAKE 1 TABLET BY MOUTH EVERY DAY LEVOTHYROXINE SODIUM 52077853897 Active Baltazar Childers MD Active AMLODIPINE BESYLATE 5MG TABLETS TAKE 1 TABLET BY MOUTH EVERY DAY FOR HYPERTENSION AMLODIPINE BESYLATE 24388854118 Active Estefania Hudson MA Active LANTUS SOLOSTAR 100 UNIT/ML SUBCUTANEOUS SOLUTION PEN- INJECTOR 20 units am and 13 units at night INSULIN GLARGINE 32452438718 Active Baltazar Childers MD Active TRAMADOL HCL 50 MG ORAL TABLET 1 twice a day as needed for pain TRAMADOL HCL 79719847715 No Longer Active Baltazar Childers MD Active ROBAXIN 500 MG ORAL TABLET Take 1.5 (one and one half) tabs once daily METHOCARBAMOL 59830382999 Active Baltazar Childers MD Active TRUE METRIX AIR GLUCOSE METER DEVICE Use as directed BLOOD GLUCOSE MONITORING SUPPL 14154697666 Active Baltazar Childers MD Activ e NORTRIPTYLINE HCL 50 MG ORAL CAPSULE 1 twice a day for neuropathy 2 NORTRIPTYLINE HCL 92659076726 Active Baltazar Childers MD Acti ve ASPIRIN 81 MG TBEC Take one (1) tablet by mouth daily ASPIRIN 15024041434 Active Baltazar Childers MD Active GABAPENTIN 300 MG ORAL CAPSULE 1 three times a day 201 12/03/26 GABAPENTIN 43998260167 No Longer Active Baltazar Childers MD Activ e LISINOPRIL 20 MG ORAL TABLET 1 tablet by mouth daily at night 2016 LISINOPRIL 46903906898 Active Baltazar Childers MD Active ZITHROMAX Z-ISAIAS 250 MG ORAL TABLET Take two tablets to day and then 1 tablet daily for 4 days AZITHROMYCIN 70366375687 No Longer A ctive Baltazar Childers MD Active SUCRALFATE 1 GM ORAL TABLET 1 four times a day to coat the stoma ch SUCRALFATE 00481554278 No Longer Active Baltazar Childers MD Active PEN NEEDLES 31G X 6 MM use 1 daily INSULIN PEN NE EDLE 37796101135 Active KENDALL Juarez Active TOUJEO SOLOSTAR 300 UNIT/ML SUBCUTANEOUS SOLUTION PEN- INJECTOR 10 units SC daily INSULIN GLARGINE 97539416616 No Longer Active Rola abigail Guerraabhilash ARGUETA Active NAPROXEN SODIUM 220 MG ORAL TABLET 1 three times a day as needed NAPROXEN SODIUM 73149456798 No Longer Active Baltazar Childers MD Active ATORVASTATIN CALCIUM 20 MG ORAL TABLET Take 1 tab daily ATORVASTATIN CALCIUM 40406879452 Active Baltazar Childers MD A ctive FUROSEMIDE 40 MG ORAL TABLET Take one by mouth daily FUROSEMIDE 73865660647 Active Baltazar Childers MD Active LISINOPRIL 20 MG ORAL TABLET Take one by mouth daily at bedtime LISINOPRIL 56973324605 No Longer Active Baltazar Childers MD Active ONETOUCH ULTRA BLUE IN VITRO STRIP Test twice a day 07/11/11 GLUCOSE BLOOD 02319570690 No Longer Active Baltazar Childers MD Acti ve TRUEPLUS LANCETS 33G Test twice a day LANCETS 7270467 1548 Active KENDALL Juarez Active TRUEDRAW LANCING DEVICE Test twice a day LANCET DEVICES 96283742719 Active Baltazar Childers MD Active TRUETRACK BLOOD GLUCOSE w/Device KIT Test twice a day BLOOD GLUCOSE MONITORING SUPPL 25877519079 Active Baltazar Childers MD Activ e GABAPENTIN 300 MG ORAL CAPSULE 1 po qd x 2 days, then 1 po BID x 2 days, then 1 po TID GABAPENTIN 45806043422 No Longer Active Baltazar Childers MD Active NAPROXEN 500 MG ORAL TABLET 1 tablet by mouth twice daily NAPROXEN 74324228966 No Longer Active Baltazar Childers MD Active PROAIR HFA 108 (90 Base) MCG/ACT INHALATION AEROSOL SO LUTION 2 puffs four times a day as needed ALBUTEROL SULFATE 49249792902 Active Paul Childers MD Active DEPO-TESTOSTERONE 200 MG/ML INTRAMUSCULAR SOLUTION as directed TESTOSTERONE CYPIONATE 95343838777 No Longer Active Baltazar Childers MD Active LIPITOR 20 MG ORAL TABLET Take one by mouth daily in evening ATORVASTATIN CALCIUM 34188235396 No Longer Active Baltazar Childers MD Active CRESTOR 10 MG ORAL TABLET 1 by mouth every day ROSUVASTATIN CALCIUM 69659941320 No Longer Active Baltazar Childers MD Active PHENTERMINE HCL 37.5 MG ORAL TABLET Take one by mouth daily PHENTERMINE HCL 81784673179 No Longer Active Baltazar Childers MD Ac tive TIZANIDINE HCL 4 MG ORAL TABLET 1 daily as needed for muscle spa sm TIZANIDINE HCL 21844600411 No Longer Active Dawna Salazar RN Active [id number] 50-325-40 MG ORAL TABLET 1 fo ur times a day as needed for heacache [id number] 95769628168 Active KENDALL Juarez Active SUMATRIPTAN SUCCINATE 100 MG ORAL TABLET 1 tablet by m outh at onset of migraine as needed SUMATRIPTAN SUCCINATE 60163573867 Active Fanny Hudson MA Active LORATADINE 10 MG ORAL TABLET Take one by mouth daily LORATADINE 23023548254 Active Fanny Hudson MA Active OMEPRAZOLE 20 MG ORAL CAPSULE DELAYED RELEASE Take one by mouth jostin ly OMEPRAZOLE 30143902482 Active Baltazar Childers MD Active HYDROXYZINE HCL 25 MG ORAL TABLET Take one by mouth daily HYDROXYZINE HCL 98684363188 Active Baltazar Childers MD Active ALPRAZOLAM 1 MG ORAL TABLET 1 [facility] ALPRAZOLAM 84022532500 Active Fanny Hudson MA Active METFORMIN HCL 1000 MG ORAL TABLET Take one by mouth twice daily METFORMIN HCL 23635378915 Active Baltazar Childers MD Active TIZANIDINE HCL 4 MG ORAL TABLET 1 daily as needed for muscle spa sm TIZANIDINE HCL 4 MG ORAL TABLET 550870 TIZANIDINE HCL Inactive PHENTERMINE HCL 37.5 MG ORAL TABLET Take one by mouth daily PHENTERMINE HCL 37.5 MG ORAL TABLET 335112 PHENTERMINE HCL Inac tive CRESTOR 10 MG ORAL TABLET 1 by mouth every day CRESTOR 10 MG ORAL TABLET 888574 ROSUVASTATIN CALCIUM Inactive LIPITOR 20 MG ORAL TABLET Take one by mouth daily in evening LIPITOR 20 MG ORAL TABLET 652881 ATORVASTATIN CALCIUM Inactive DEPO-TESTOSTERONE 200 MG/ML INTRAMUSCULAR SOLUTION as directed DEPO-TESTOSTERONE 200 MG/ML INTRAMUSCULAR SOLUTION 6315232 RUFINO TOSTERONE CYPIONATE Inactive NAPROXEN 500 MG ORAL TABLET 1 tablet by mouth twice daily NAPROXEN 500 MG ORAL TABLET 498039 NAPROXEN Inactive GABAPENTIN 300 MG ORAL CAPSULE 1 po qd x 2 days, then 1 po BID x 2 days, then 1 po TID GABAPENTIN 300 MG ORAL CAPSULE 940899 GABAP ENTIN Inactive ONETOUCH ULTRA BLUE IN VITRO STRIP Test twice a day 07/11/11 ONETOUCH ULTRA BLUE IN VITRO STRIP GLUCOSE BLOOD Inact amie NAPROXEN SODIUM 220 MG ORAL TABLET 1 three times a day as needed NAPROXEN SODIUM 220 MG ORAL TABLET 12725708854 NAPROXEN SODI UM Inactive TOUJEO SOLOSTAR 300 UNIT/ML SUBCUTANEOUS SOLUTION PEN- INJECTOR 10 units SC daily TOUJEO SOLOSTAR 300 UNIT/ML SUBCUTANEOUS SOLUTION PEN-INJECTOR INSULIN GLARGINE Inactive SUCRALFATE 1 GM ORAL TABLET 1 four times a day to coat the stoma ch SUCRALFATE 1 GM ORAL TABLET 343159 SUCRALFATE Inac tive GABAPENTIN 300 MG ORAL CAPSULE 1 three times a day 201 12/03/26 GABAPENTIN 300 MG ORAL CAPSULE 151159 GABAPENTIN Inactive TRAMADOL HCL 50 MG ORAL TABLET 1 twice a day as needed for pain TRAMADOL HCL 50 MG ORAL TABLET 420136 TRAMADOL HCL I nactive ZITHROMAX Z-ISAIAS 250 MG ORAL TABLET Take two tablets to day and then 1 tablet daily for 4 days ZITHROMAX Z-ISAIAS 250 MG ORAL TAB LET 318902 AZITHROMYCIN Inactive Immunizations Vaccine Administration Date Value [...] Fluarix, Agriflu(>= 18 yo)) Fluzone (>3 yrs.) [EPO471] Influenza, seasonal, inject able Seasonal influenza vaccine, injectable, containing preservative, for > 3 years old (Afluria, FluLaval, Fluzone, Fluvirin, Fluarix, Agriflu(>= 18 yo)) Fluzone (>3 yrs.) [XUV409] Influenza, seasonal, inject able Vital Signs Date [...] - Chem istry sodium, serum 136 mmol/L 906-540 0779/06/04 potassium, serum 4.9 mmol/L 3.5-5.2 chloride, serum 97 mmol/L 98-107 carbon dioxide, venous blood 35.3 mmol/L 21.0-32 .0 blood glucose 239 mg/dL 65-95 calcium, serum 10.6 mg/dL 8.5-10.1 urea nitrogen, blood 31 mg/dL 7-18 creatinine, serum 2.33 mg/dL 0.60-1.30 Estimated Glomerular Filtration Rate (calc) 23 (?) mL/min/1.73m2 = OR > 60 mL/min sodium, serum 141 mmol/L 868-285 7383/07/09 potassium, serum 4.9 mmol/L 3.5-5.2 chloride, serum [...] C - Chemistry sodium, serum 137 mmol/L 969-996 5689/10/17 potassium, serum 4.9 mmol/L 3.5-5.2 chloride, serum [...] Ordered Encounters Code Encounter Date Provider Facility CPT-25744 [id number] Vst-Est Level IV 14:22:53 FIELD OPERATIONS TECHNICIAN Charlie Childers MD [facility] CPT-19718 [id number] Vst-Est Level IV 15:48:51 FIELD OPERATIONS TECHNICIAN Charlie Childers MD [facility] CPT-75434 80998-Abe Vst-Est Level V 14:28:39 CDT Aneudy Childers MD [facility] CPT-16999 16122-Qxb Vst-Est Level IV 15:03:32 CDT Charlie Childers MD [facility] CPT-73497 24896-Ese Vst-Est Level III 15:51:57 CDT Baltazar Childers MD [facility] CPT-22943 48419-Vok Vst-Est Level IV 15:14:58 CDT Charlie Childers MD [facility] CPT-17452 07615-Vbx Vst-Est Level IV 15:12:52 FIELD OPERATIONS TECHNICIAN Charlie Childers MD [facility] CPT-61867 50468-Hbx Vst-Est Level IV 15:30:55 FIELD OPERATIONS TECHNICIAN Charlie Childesr MD [facility] CPT-83804 57884-Qox Vst-Est Level IV 13:49:06 C ELIOT Martinez PA-C [facility] CPT-91857 Level 4 Est. Patient 17:26:08 CDT Ann trujillo PA-C [facility]-46261 88872-Tap Vst-Est Level V 14:26:27 CDT Aneudy Childers MD [facility]-44687 Level 4 Est. Patient 17:05:37 CDT Baltazar Childers MD [facility]-78311 Level 4 Est. Patient 16:21:19 FIELD OPERATIONS TECHNICIAN Baltazar Childers MD [facility]-14826 Level 4 Est. Patient 12:25:11 CDT Baltazar Childers MD [facility]-46506 Level 4 Est. Patient 14:22:31 CDT Baltazar Childers MD [facility]-00826 Level 4 Est. Patient 15:44:38 CDT [facility] Level 4 Est. Patient 11:34:17 CDT Baltazar Childers MD [facility]-77812 Level 3 Est. Patient 16:40:40 CDT Baltazar Childers MD [facility]-00812 Level 4 Est. Patient 10:41:24 CDT Baltazar Childers MD [facility]-37448 Level 4 Est. Patient 16:01:48 CDT Baltazar Childers MD [facility]-34529 Level 4 Est. Patient 16:54:07 FIELD OPERATIONS TECHNICIAN Baltazar Childers MD [facility]-20439 Level 4 Est. Patient 15:42:12 CDT Baltazar Childers MD [facility] CPT-59058 Level 4 Est. Patient 11:29:55 CDT Baltazar Childers MD [facility] CPT-18229 Level 4 Est. Patient 14:15:19 CDT Baltazar Childers MD [facility] CPT-23505 Level 4 Est. Patient 12:20:13 CDT Baltazar Childers MD [facility] CPT-91294 Level 4 Est. Patient 14:52:45 FIELD OPERATIONS TECHNICIAN Baltazar Childers MD [facility] CPT-88035 Level 4 Est. Patient 14:18:34 FIELD OPERATIONS TECHNICIAN Baltazar Childers MD [facility] CPT-14033 Level 4 Est. Patient 15:18:29 CDT Baltazar Childers MD [facility] CPT-71506 Level 3 Est. Patient 12:45:34 CDT Baltazar Childers MD [facility] CPT-74091 Level 3 Est. Patient 10:10:11 CDT Baltazar Childers MD [facility] CPT-08325 Level 3 Est. Patient 14:07:50 CDT Baltazar Childers MD [facility] CPT-07157 Level 4 Est. Patient 12:26:10 FIELD OPERATIONS TECHNICIAN Baltazar Childers MD [facility] CPT-93494 Level 4 Est. Patient 14:45:38 CDT Baltazar Childers MD [facility] CPT-94444 Level 4 New Patient 12:30:48 CDT Baltazar hinton MD [facility] Procedures Code Procedure Name Date Entry Date Standard Desc ription CPT-000 Give Appropriate Flu Vaccine 14:07:28 FIELD OPERATIONS TECHNICIAN 2 CPT-64845 Venipuncture Draw Fee 16:24:55 FIELD OPERATIONS TECHNICIAN CPT-35829 68361 - Immun Admin 1 vac 14:54:52 FIELD OPERATIONS TECHNICIAN 2019 CPT-63397 Fluzone Quadrivalent (Flu) 0.5 mL 10Pk S yringe IM 14:54:52 FIELD OPERATIONS TECHNICIAN CPT-BP6475Y (4013F) Statin therapy prescribed or cur rently being taken 14:07:28 FIELD OPERATIONS TECHNICIAN CPT-SE0918W (3066F) Documentation of treatment for n ephropathy 14:07:28 FIELD OPERATIONS TECHNICIAN CPT-96936 Venipuncture Draw Fee 17:47:23 CDT CPT-56717 4M Drug Screen cup test, Multi-panel, urine 2018 14:28:39 CDT CPT-96179 Venipuncture Draw Fee 15:19:00 CDT CPT-000 Give Appropriate Flu Vaccine 12:25:14 CDT 2 CPT-85160 First Vx - Ix admin via ID I M or jet injects without counseling by physician 13:08:59 CDT CPT-01029 Fluzone Quadrivalent Intramuscular Suspe nsion 0.5 ML 13:08:59 CDT CPT-82598 Venipuncture Draw Fee 12:04:12 CDT CPT-23814 Lipid - LAB USE ONLY 17:39:15 FIELD OPERATIONS TECHNICIAN 9 CPT-60402 HGBA1C - LAB USE ONLY 17:39:15 FIELD OPERATIONS TECHNICIAN CPT-54183 CMP - LAB USE ONLY 17:39:14 FIELD OPERATIONS TECHNICIAN CPT-92481 Venipuncture Draw Fee 17:39:14 FIELD OPERATIONS TECHNICIAN CPT-03468 First Vx - Ix admin via ID I M or jet injects without counseling by physician 16:55:17 FIELD OPERATIONS TECHNICIAN CPT-32090 Fluzone Quadrivalent Intramuscular Suspe nsion 0.5 ML 16:55:17 FIELD OPERATIONS TECHNICIAN CPT-52539 Renal Panel - LAB USE ONLY 17:39:20 CDT 201 10/31/07 CPT-42772 CBC - LAB USE ONLY 17:39:20 CDT CPT-74108 Venipuncture Draw Fee 17:39:20 CDT CPT-04520 Venipuncture Draw Fee 14:33:30 CDT CPT-10448 Renal Panel - LAB USE ONLY 14:33:30 CDT 201 10/31/07 CPT-07636 CBC - LAB USE ONLY 14:33:29 CDT CPT-63943 Venipuncture Draw Fee 14:50:21 FIELD OPERATIONS TECHNICIAN CPT-33144 Immunization Single Admin 17:35:35 CDT 2014 CPT-22994 Fluzone Quadrivalent preservative free ( >=3yrs.) 17:35:35 CDT CPT-72814 Venipuncture Draw Fee 12:10:27 FIELD OPERATIONS TECHNICIAN CPT-07160 Fluzone Quadrivalent Intramuscular Suspe nsion 0.5 ML 10:49:13 CDT CPT-44499 First Vx Component - Ix admi n via ID IM or jet inj without physician counseling 15:17:19 FIELD OPERATIONS TECHNICIAN CPT-04045 Pneumovax 23 15:17:19 FIELD OPERATIONS TECHNICIAN CPT-37133 Pneumovax 14:52:45 FIELD OPERATIONS TECHNICIAN CPT-24300 Venipuncture Draw Fee 14:06:30 FIELD OPERATIONS TECHNICIAN CPT-000 Give Appropriate Flu Vaccine 14:18:34 FIELD OPERATIONS TECHNICIAN 2 CPT-54342 Administration single or combination vac cine inc oral 14:46:00 FIELD OPERATIONS TECHNICIAN CPT-42002 Influenza split virus > age 3 14:46:00 FIELD OPERATIONS TECHNICIAN CPT-OV Office Visit 19:13:16 CDT CPT-20121 Zostavax 18:41:56 CDT CPT-29065 Administration single or combination vac cine inc oral 12:56:39 CDT CPT-71744 Zoster Vaccine (Zostavax) 12:56:39 CDT 2012 CPT-07304 Venipuncture Draw Fee 10:58:57 CDT CPT-37204 Sono pelvis non OB uterus ovaries cervix 17:45:04 CDT CPT-00393 Sono retroperitoneal complete kidneys an d bladder 17:14:36 CDT CPT-OV Office Visit 14:59:38 FIELD OPERATIONS TECHNICIAN CPT-J1070 Depo Testosterone 100 mg 14:50:13 CDT 03/05 CPT-99093 Abx/Therapy Injection 14:50:13 CDT CPT-61882 Administration single or combination vac cine inc oral 14:34:43 CDT CPT-64791 Influenza split virus > age 3 14:34:43 CDT CPT-J1070 Depo Testosterone 100 mg 17:37:13 CDT 01/11 CPT-61987 Abx/Therapy Injection 17:37:13 CDT CPT-87032 Venipuncture Draw Fee 16:30:13 CDT CPT-49293 Venipuncture Draw Fee 16:29:43 CDT CPT-J1070 Depo Testosterone 100 mg 14:45:38 CDT 01/11
--- OUTSIDE RECORDS SUMMARY | 2019-10-27 11:31 | XMS REPORT | Clinical Summary ---
Author Author Admin, Elba Lance [facility] Address Unknown Phone Unavailable Allergies, Adverse Reactions, [...] syndrome (RLS) DIABETES MELLITUS 250.00 Active Baltazar Cihlders MD Diabetes mellitus without mention of complication, [...] Morbid obesity due to excess calories 278.01 [facility] t Baltazar Childers MD Morbid obesity Obesity Class II (BMI 35-39.9) 278.01 Refinement 10/26 Baltazar Childers MD Morbid obesity Morbid obesity due to excess calories 278.01 [facility] t Baltazar Childers MD Morbid obesity Obesity Class II (BMI 35-39.9) 278.01 Refinement 01/19 Baltazar Childers MD Morbid obesity Morbid obesity due to excess calories 278.01 [facility] t Baltazar Childers MD Morbid obesity [...] ronary atherosclerosis of unspecified type of vessel, [place] or graft OTH NONSPC ABN FINDNG [...] Generic Name NDC Status Provider Patient Instruction MAGNESIUM OXIDE 400 MG ORAL CAPSULE 1 po bid MAGNESIUM OXIDE 95382794436 Active Fadumo Ruiz Active HYDROCODONE-ACETAMINOPHEN 7.5-325 MG ORAL TABLET Take 1 tab every 6-8 hours PRN HYDROCODONE-ACETAMINOPHEN 24486116543 Active Baltazar silverman MD Active HUMALOG 100 UNIT/ML SUBCUTANEOUS SOLUTION Take 10 units with every meal INSULIN LISPRO 15213327954 Active Baltazar Childers MD Active NOVOLOG 100 UNIT/ML SUBCUTANEOUS SOLUTION 5 units with each meal. 2 INSULIN ASPART 17022753780 No Longer Active LEANDRO Nugent ONGLYZA 2.5 MG TABS TAKE 1 TABLET BY MOUTH EVERY DAY FOR DIABETES 2 SAXAGLIPTIN HCL 35819948254 Active Baltazar Childers MD Active GLIPIZIDE 10MG TABLETS TAKE 2 TABLETS BY MOUTH TWICE DAILY GLIPIZIDE 97217519628 Active Baltazar Childers MD Active TRUE METRIX B/G TEST STRIPS 25'S TEST BLOOD SUGAR TWICE DAILY 03/02 GLUCOSE BLOOD 17974855224 Active KENDALL Juarez Active LEVOTHYROXINE 0.112MG (112MCG) TABS TAKE 1 TABLET BY MOUTH EVERY DAY LEVOTHYROXINE SODIUM 12064382878 Active Baltazar Childers MD Active AMLODIPINE BESYLATE 5MG TABLETS TAKE 1 TABLET BY MOUTH EVERY DAY FOR HYPERTENSION AMLODIPINE BESYLATE 02627841637 Active Estefania Hudson MA Active LANTUS SOLOSTAR 100 UNIT/ML SUBCUTANEOUS SOLUTION PEN- INJECTOR 20 units am and 13 units at night INSULIN GLARGINE 88790588798 Active Baltazar Childers MD Active TRAMADOL HCL 50 MG ORAL TABLET 1 twice a day as needed for pain TRAMADOL HCL 31094727436 No Longer Active Baltazar Childers MD Active ROBAXIN 500 MG ORAL TABLET Take 1.5 (one and one half) tabs once daily METHOCARBAMOL 78213982996 Active Baltazar Childers MD Active TRUE METRIX AIR GLUCOSE METER DEVICE Use as directed BLOOD GLUCOSE MONITORING SUPPL 59792566221 Active Baltazar Childers MD Activ e NORTRIPTYLINE HCL 50 MG ORAL CAPSULE 1 twice a day for neuropathy 2 NORTRIPTYLINE HCL 79930733517 Active Baltazar Childers MD Acti ve ASPIRIN 81 MG TBEC Take one (1) tablet by mouth daily ASPIRIN 62237807341 Active Baltazar Childers MD Active GABAPENTIN 300 MG ORAL CAPSULE 1 three times a day 201 12/03/26 GABAPENTIN 36365321318 No Longer Active Baltazar Childers MD Activ e LISINOPRIL 20 MG ORAL TABLET 1 tablet by mouth daily at night 2016 LISINOPRIL 91639821209 Active Baltazar Childers MD Active ZITHROMAX Z-ISAIAS 250 MG ORAL TABLET Take two tablets to day and then 1 tablet daily for 4 days AZITHROMYCIN 62533437118 No Longer A ctive Baltazar Childers MD Active SUCRALFATE 1 GM ORAL TABLET 1 four times a day to coat the stoma ch SUCRALFATE 02493202416 No Longer Active Baltazar Childers MD Active PEN NEEDLES 31G X 6 MM use 1 daily INSULIN PEN NE EDLE 50215827020 Active KENDALL Juarez Active TOUJEO SOLOSTAR 300 UNIT/ML SUBCUTANEOUS SOLUTION PEN- INJECTOR 10 units SC daily INSULIN GLARGINE 31041124897 No Longer Active S abigail Herbert RMA Active NAPROXEN SODIUM 220 MG ORAL TABLET 1 three times a day as needed NAPROXEN SODIUM 07552642665 No Longer Active Baltazar Childers MD Active ATORVASTATIN CALCIUM 20 MG ORAL TABLET Take 1 tab daily ATORVASTATIN CALCIUM 57082630411 Active Baltazar Childers MD A ctive FUROSEMIDE 40 MG ORAL TABLET Take one by mouth daily FUROSEMIDE 23935719427 Active Baltazar Childers MD Active LISINOPRIL 20 MG ORAL TABLET Take one by mouth daily at bedtime LISINOPRIL 49573275630 No Longer Active Baltazar Childers MD Active ONETOUCH ULTRA BLUE IN VITRO STRIP Test twice a day 07/11/11 GLUCOSE BLOOD 83170522572 No Longer Active Baltazar Childers MD Acti ve TRUEPLUS LANCETS 33G Test twice a day LANCETS 2575314 2921 Active KENDALL Juarez Active TRUEDRAW LANCING DEVICE Test twice a day LANCET DEVICES 19800001470 Active Baltazar Childers MD Active TRUETRACK BLOOD GLUCOSE w/Device KIT Test twice a day BLOOD GLUCOSE MONITORING SUPPL 65440276685 Active Baltazar Childres MD Activ e GABAPENTIN 300 MG ORAL CAPSULE 1 po qd x 2 days, then 1 po BID x 2 days, then 1 po TID GABAPENTIN 49433685109 No Longer Active Baltazar Childers MD Active NAPROXEN 500 MG ORAL TABLET 1 tablet by mouth twice daily NAPROXEN 72903191824 No Longer Active Baltazar Childers MD Active PROAIR HFA 108 (90 Base) MCG/ACT INHALATION AEROSOL SO LUTION 2 puffs four times a day as needed ALBUTEROL SULFATE 40029948443 Active R gilberto Libia Childers MD Active DEPO-TESTOSTERONE 200 MG/ML INTRAMUSCULAR SOLUTION as directed TESTOSTERONE CYPIONATE 93276075655 No Longer Active Baltazar Childers MD Active LIPITOR 20 MG ORAL TABLET Take one by mouth daily in evening ATORVASTATIN CALCIUM 88161775988 No Longer Active Baltazar Childers MD Active CRESTOR 10 MG ORAL TABLET 1 by mouth every day ROSUVASTATIN CALCIUM 56527039439 No Longer Active Baltazar Childers MD Active PHENTERMINE HCL 37.5 MG ORAL TABLET Take one by mouth daily PHENTERMINE HCL 49240089469 No Longer Active Baltazar Childers MD Ac tive TIZANIDINE HCL 4 MG ORAL TABLET 1 daily as needed for muscle spa sm TIZANIDINE HCL 92327809532 No Longer Active Dawna Salazar RN Active [id number] 50-325-40 MG ORAL TABLET 1 fo ur times a day as needed for heacache [id number] 81105631295 Active CÉSAR JuarezA Active SUMATRIPTAN SUCCINATE 100 MG ORAL TABLET 1 tablet by m outh at onset of migraine as needed SUMATRIPTAN SUCCINATE 48194277106 Active Fanny Hudson MA Active LORATADINE 10 MG ORAL TABLET Take one by mouth daily LORATADINE 21927558589 Active Fanny Hudson MA Active OMEPRAZOLE 20 MG ORAL CAPSULE DELAYED RELEASE Take one by mouth jostin ly OMEPRAZOLE 52686510226 Active Baltazar Childers MD Active HYDROXYZINE HCL 25 MG ORAL TABLET Take one by mouth daily HYDROXYZINE HCL 26543011288 Active Baltazar Childers MD Active ALPRAZOLAM 1 MG ORAL TABLET 1 tablet [facility] ALPR[facility] 04510375403 Active Fanny Hudson MA Active METFORMIN HCL 1000 MG ORAL TABLET Take one by mouth twice daily METFORMIN HCL 90205777867 Active Baltazar Childers MD Active TIZANIDINE HCL 4 MG ORAL TABLET 1 daily as needed for muscle spa sm TIZANIDINE HCL 4 MG ORAL TABLET 593360 TIZANIDINE HCL Inactive PHENTERMINE HCL 37.5 MG ORAL TABLET Take one by mouth daily PHENTERMINE HCL 37.5 MG ORAL TABLET 902163 PHENTERMINE HCL Inac tive CRESTOR 10 MG ORAL TABLET 1 by mouth every day CRESTOR 10 MG ORAL TABLET 767334 ROSUVASTATIN CALCIUM Inactive LIPITOR 20 MG ORAL TABLET Take one by mouth daily in evening LIPITOR 20 MG ORAL TABLET 088260 ATORVASTATIN CALCIUM Inactive DEPO-TESTOSTERONE 200 MG/ML INTRAMUSCULAR SOLUTION as directed DEPO-TESTOSTERONE 200 MG/ML INTRAMUSCULAR SOLUTION 0569797 RUFINO TOSTERONE CYPIONATE Inactive NAPROXEN 500 MG ORAL TABLET 1 tablet by mouth twice daily NAPROXEN 500 MG ORAL TABLET 460211 NAPROXEN Inactive GABAPENTIN 300 MG ORAL CAPSULE 1 po qd x 2 days, then 1 po BID x 2 days, then 1 po TID GABAPENTIN 300 MG ORAL CAPSULE 870015 GABAP ENTIN Inactive ONETOUCH ULTRA BLUE IN VITRO STRIP Test twice a day 07/11/11 ONETOUCH ULTRA BLUE IN VITRO STRIP GLUCOSE BLOOD Inact amie NAPROXEN SODIUM 220 MG ORAL TABLET 1 three times a day as needed NAPROXEN SODIUM 220 MG ORAL TABLET 95891854334 NAPROXEN SODI UM Inactive TOUJEO SOLOSTAR 300 UNIT/ML SUBCUTANEOUS SOLUTION PEN- INJECTOR 10 units SC daily TOUJEO SOLOSTAR 300 UNIT/ML SUBCUTANEOUS SOLUTION PEN-INJECTOR INSULIN GLARGINE Inactive SUCRALFATE 1 GM ORAL TABLET 1 four times a day to coat the stoma ch SUCRALFATE 1 GM ORAL TABLET 753398 SUCRALFATE Inac tive GABAPENTIN 300 MG ORAL CAPSULE 1 three times a day 201 12/03/26 GABAPENTIN 300 MG ORAL CAPSULE 804188 GABAPENTIN Inactive TRAMADOL HCL 50 MG ORAL TABLET 1 twice a day as needed for pain TRAMADOL HCL 50 MG ORAL TABLET 426928 TRAMADOL HCL I nactive ZITHROMAX Z-ISAIAS 250 MG ORAL TABLET Take two tablets to day and then 1 tablet daily for 4 days ZITHROMAX Z-ISAIAS 250 MG ORAL TAB LET 017830 AZITHROMYCIN Inactive Immunizations Vaccine Administration Date Value [...] Fluarix, Agriflu(>= 18 yo)) Fluzone (>3 yrs.) [[id number]] Influenza, seasonal, inject able Seasonal influenza vaccine, injectable, containing preservative, for > 3 years old (Afluria, FluLaval, Fluzone, Fluvirin, Fluarix, Agriflu(>= 18 yo)) Fluzone (>3 yrs.) [[id number]] Influenza, seasonal, inject able Vital Signs Date Name Value Unit Range Description blood pressure, diastolic, repeated by physician 74 BP [place] blood pressure, diastolic 74 mm[Hg] BP [place] blood pressure, systolic, repeated by physician 134 BP sys blood pressure, systolic 134 mm[Hg] BP sys height E&M 66.5 [in_us] Bdy height pulse rate E&M 90 /min Heart rate temperature E&M 98.6 [...] E&M 66.5 [in_us] Bdy height pulse rate E&M 85 /min Heart rate temperature E&M 98.6 [degF] Body temp erature weight E&M 228.50 [lb_av] Weight Measure d blood pressure, diastolic, repeated by physician 68 BP [place] blood pressure, diastolic 68 mm[Hg] BP [place] blood pressure, systolic, repeated by physician 120 BP sys blood pressure, systolic 120 mm[Hg] BP sys height E&M 66.5 [in_us] Bdy height pulse rate E&M 82 /min Heart rate temperature E&M 98.2 [degF] Body temp erature weight E&M 229.60 [lb_av] Weight Measure d blood pressure, diastolic, repeated by physician 86 BP [place] blood pressure, diastolic 86 mm[Hg] BP [place] blood pressure, systolic, repeated by physician 128 BP sys blood pressure, systolic 128 mm[Hg] BP sys height E&M 66.5 [in_us] Bdy height pulse rate E&M 74 /min Heart rate temperature E&M 98.1 [degF] Body temp erature weight E&M 236 [lb_av] Weight Measure d blood pressure, diastolic, repeated by physician 84 BP [place] blood pressure, diastolic 84 mm[Hg] BP [place] blood pressure, systolic, repeated by physician 137 BP sys blood pressure, systolic 137 mm[Hg] BP sys height E&M 66.5 [in_us] Bdy height pulse rate E&M 101 /min Heart rate temperature E&M 98.0 [degF] Body temp erature weight E&M 232 [lb_av] Weight Measure d blood pressure, diastolic, repeated by physician 75 BP [place] blood pressure, diastolic 75 mm[Hg] BP [place] blood pressure, systolic, repeated by physician 106 BP sys blood pressure, systolic 106 mm[Hg] BP sys height E&M 66.5 [in_us] Bdy height pulse rate E&M 77 /min Heart rate temperature E&M 97.5 [degF] Body temp erature weight E&M 228.50 [lb_av] Weight Measure d blood pressure, diastolic, repeated by physician 75 BP [place] blood pressure, diastolic 75 mm[Hg] BP [place] blood pressure, systolic, repeated by physician 132 BP sys blood pressure, systolic 132 mm[Hg] BP sys height E&M 66.5 [in_us] Bdy height pulse rate E&M 98 /min Heart rate temperature E&M 99.1 [degF] Body temp erature weight E&M 227 [lb_av] Weight Measure d Diagnostic Results Date Name Value Unit Range Description Lab Report: Basic Metabolic Panel - Chem istry sodium, serum 136 mmol/L 422-690 6434/06/04 potassium, serum 4.9 mmol/L 3.5-5.2 chloride, serum 97 mmol/L 98-107 carbon dioxide, venous blood 35.3 mmol/L 21.0-32 .0 blood glucose 239 mg/dL 65-95 calcium, serum 10.6 mg/dL 8.5-10.1 urea nitrogen, blood 31 mg/dL 7-18 creatinine, serum 2.33 mg/dL 0.60-1.30 Estimated Glomerular Filtration Rate (calc) 23 (?) mL/min/1.73m2 = OR > 60 mL/min sodium, serum 141 mmol/L 479-731 9825/07/09 potassium, serum 4.9 mmol/L 3.5-5.2 chloride, serum 103 mmol/L 98-107 carbon dioxide, venous blood 35.1 mmol/L 21.0-32 .0 blood glucose 203 mg/dL 65-95 calcium, serum 9.8 mg/dL 8.5-10.1 urea nitrogen, blood 13 mg/dL 7-18 creatinine, serum 1.76 mg/dL 0.60-1.30 Estimated Glomerular Filtration Rate (calc) 31 (?) mL/min/1.73m2 = OR > 60 mL/min Lab Report: Basic Metabolic Panel, [facility] C - Chemistry sodium, serum 137 mmol/L 848-030 3005/10/17 potassium, serum 4.9 mmol/L 3.5-5.2 chloride, serum [...] Ordered Encounters Code Encounter Date Provider Facility CPT-87699 [id number] Vst-Est Level IV 14:22:53 ACADEMIC ADVISOR Charlie Childers MD [facility] CPT-88253 30361-Ihq Vst-Est Level IV 15:48:51 ACADEMIC ADVISOR Charlie Childers MD [facility] CPT-96763 61467-Mzx Vst-Est Level V 14:28:39 CDT Aneudy Childers MD [facility] CPT-14260 67942-Rky Vst-Est Level IV 15:03:32 CDT Charlie Childers MD [facility] CPT-65609 36587-Ccw Vst-Est Level III 15:51:57 CDT Baltazar Childers MD [facility] CPT-61749 80747-Tuo Vst-Est Level IV 15:14:58 CDT Charlie Childers MD [facility] CPT-35038 74166-Oco Vst-Est Level IV 15:12:52 ACADEMIC ADVISOR Charlie Childers MD [facility] CPT-67045 64013-Zuv Vst-Est Level IV 15:30:55 ACADEMIC ADVISOR Charlie Childers MD [facility]-12053 93526-Bsd Vst-Est Level IV 13:49:06 C DT Ann Martinez [facility] CPT-76951 Level 4 Est. Patient 17:26:08 CDT Ann trujillo [facility] CPT-26953 77771-Gsl Vst-Est Level V 14:26:27 CDT Aneudy Childers [facility] CPT-33595 Level 4 Est. Patient 17:05:37 CDT Baltazar Childers MD [facility]-37523 Level 4 Est. Patient 16:21:19 ACADEMIC ADVISOR Baltazar Childers MD [facility] CPT-37346 Level 4 Est. Patient 12:25:11 CDT Baltazar Childers MD [facility] CPT-09017 Level 4 Est. Patient 14:22:31 CDT Baltazar Childers MD [facility] CPT-17288 Level 4 Est. Patient 15:44:38 CDT Shonna Parker APRN [facility] CPT-68875 Level 4 Est. Patient 11:34:17 CDT Baltazar Childers MD [facility] CPT-45732 Level 3 Est. Patient 16:40:40 CDT Baltazar Childers MD [facility] CPT-85239 Level 4 Est. Patient 10:41:24 CDT Baltazar Childers MD [facility] CPT-74288 Level 4 Est. Patient 16:01:48 CDT Baltazar Childers MD [facility]-92067 Level 4 Est. Patient 16:54:07 ACADEMIC ADVISOR Baltazar Childers MD [facility]-11368 Level 4 Est. Patient 15:42:12 CDT Baltazar Childers MD [facility] CPT-48641 Level 4 Est. Patient 11:29:55 CDT Baltazar Childers MD [facility] CPT-85937 Level 4 Est. Patient 14:15:19 CDT Baltazar Childers MD [facility] CPT-98769 Level 4 Est. Patient 12:20:13 CDT Baltazar Childers MD [facility] CPT-48823 Level 4 Est. Patient 14:52:45 ACADEMIC ADVISOR Baltazar Childers MD [facility] CPT-71956 Level 4 Est. Patient 14:18:34 ACADEMIC ADVISOR Baltazar Childers MD [facility] CPT-97925 Level 4 Est. Patient 15:18:29 CDT Baltazar Childers MD [facility] CPT-10005 Level 3 Est. Patient 12:45:34 CDT Baltazar Childers MD [facility] CPT-34732 Level 3 Est. Patient 10:10:11 CDT Baltazar hCilders MD [facility] CPT-93260 Level 3 Est. Patient 14:07:50 CDT Baltazar Childers MD [facility] CPT-70244 Level 4 Est. Patient 12:26:10 ACADEMIC ADVISOR Baltazar Childers MD [facility] CPT-97148 Level 4 Est. Patient 14:45:38 CDT Baltazar Childers MD [facility] CPT-47911 Level 4 New Patient 12:30:48 CDT Baltazar hinton MD [facility] Procedures Code Procedure Name Date Entry Date Standard Desc ription CPT-75182 Venipuncture Draw Fee 16:24:55 ACADEMIC ADVISOR CPT-98500 71175 - Immun Admin 1 vac 14:54:52 ACADEMIC ADVISOR 2019 CPT-99723 Fluzone Quadrivalent (Flu) 0.5 mL 10Pk S yringe IM 14:54:52 ACADEMIC ADVISOR CPT-PE9855K (4013F) Statin therapy prescribed or cur rently being taken 14:07:28 ACADEMIC ADVISOR CPT-WW9509X (3066F) Documentation of treatment for n ephropathy 14:07:28 ACADEMIC ADVISOR CPT-55841 Venipuncture Draw Fee 17:47:23 CDT CPT-09131 4M Drug Screen cup test, Multi-panel, urine 2018 14:28:39 CDT CPT-87898 Venipuncture Draw Fee 15:19:00 CDT CPT-000 Give Appropriate Flu Vaccine 12:25:14 CDT 2 CPT-92789 First Vx - Ix admin via ID I M or jet injects without counseling by physician 13:08:59 CDT CPT-87533 Fluzone Quadrivalent Intramuscular Suspe nsion 0.5 ML 13:08:59 CDT CPT-62139 Venipuncture Draw Fee 12:04:12 CDT CPT-99930 Lipid - LAB USE ONLY 17:39:15 ACADEMIC ADVISOR 9 CPT-64754 HGBA1C - LAB USE ONLY 17:39:15 ACADEMIC ADVISOR CPT-47668 CMP - LAB USE ONLY 17:39:14 ACADEMIC ADVISOR CPT-00896 Venipuncture Draw Fee 17:39:14 ACADEMIC ADVISOR CPT-71463 First Vx - Ix admin via ID I M or jet injects without counseling by physician 16:55:17 ACADEMIC ADVISOR CPT-60250 Fluzone Quadrivalent Intramuscular Suspe nsion 0.5 ML 16:55:17 ACADEMIC ADVISOR CPT-21457 Renal Panel - LAB USE ONLY 17:39:20 CDT 201 10/31/07 CPT-37060 CBC - LAB USE ONLY 17:39:20 CDT CPT-26245 Venipuncture Draw Fee 17:39:20 CDT CPT-42522 Venipuncture Draw Fee 14:33:30 CDT CPT-71110 Renal Panel - LAB USE ONLY 14:33:30 CDT 201 10/31/07 CPT-27722 CBC - LAB USE ONLY 14:33:29 CDT CPT-26564 Venipuncture Draw Fee 14:50:21 ACADEMIC ADVISOR CPT-07272 Immunization Single Admin 17:35:35 CDT 2014 CPT-39903 Fluzone Quadrivalent preservative free ( >=3yrs.) 17:35:35 CDT CPT-28539 Venipuncture Draw Fee 12:10:27 ACADEMIC ADVISOR CPT-89443 Fluzone Quadrivalent Intramuscular Suspe nsion 0.5 ML 10:49:13 CDT CPT-74696 First Vx Component - Ix admi n via ID IM or jet inj without physician counseling 15:17:19 ACADEMIC ADVISOR CPT-07222 Pneumovax 23 15:17:19 ACADEMIC ADVISOR CPT-43785 Pneumovax 14:52:45 ACADEMIC ADVISOR CPT-35585 Venipuncture Draw Fee 14:06:30 ACADEMIC ADVISOR CPT-000 Give Appropriate Flu Vaccine 14:18:34 ACADEMIC ADVISOR 2 CPT-96418 Administration single or combination vac cine inc oral 14:46:00 ACADEMIC ADVISOR CPT-97479 Influenza split virus > age 3 14:46:00 ACADEMIC ADVISOR CPT-OV Office Visit 19:13:16 CDT CPT-92645 Zostavax 18:41:56 CDT CPT-55340 Administration single or combination vac cine inc oral 12:56:39 CDT CPT-85928 Zoster Vaccine (Zostavax) 12:56:39 CDT 2012 CPT-78567 Venipuncture Draw Fee 10:58:57 CDT CPT-61815 Sono pelvis non OB uterus ovaries cervix 17:45:04 CDT CPT-63518 Sono retroperitoneal complete kidneys an d bladder 17:14:36 CDT CPT-OV Office Visit 14:59:38 ACADEMIC ADVISOR CPT-J1070 Depo Testosterone 100 mg 14:50:13 CDT 03/05 CPT-73691 Abx/Therapy Injection 14:50:13 CDT CPT-27607 Administration single or combination vac cine inc oral 14:34:43 CDT CPT-00669 Influenza split virus > age 3 14:34:43 CDT CPT-J1070 Depo Testosterone 100 mg 17:37:13 CDT 01/11 CPT-38769 Abx/Therapy Injection 17:37:13 CDT CPT-15950 Venipuncture Draw Fee 16:30:13 CDT CPT-53639 Venipuncture Draw Fee 16:29:43 CDT CPT-J1070 Depo Testosterone 100 mg 14:45:38 CDT 01/11
--- OUTSIDE RECORDS SUMMARY | 2019-10-27 11:31 | XMS REPORT | Clinical Summary ---
Author Author Admin, [facility] Address Unknown Phone Unavailable Allergies, Adverse Reactions, [...] Morbid obesity due to excess calories 278.01 [facility] t Baltazar Childers MD Morbid obesity Obesity Class II (BMI 35-39.9) 278.01 Refinement 10/26 Baltazar Childers MD Morbid obesity Morbid obesity due to excess calories 278.01 [facility] t Baltazar Childers MD Morbid obesity Obesity Class II (BMI 35-39.9) 278.01 Refinement 01/19 Baltazar Childers MD Morbid obesity Morbid obesity due to excess calories 278.01 [facility] t Baltazar Childers MD Morbid obesity [...] ronary atherosclerosis of unspecified type of vessel, [place] or graft OTH NONSPC ABN FINDNG RAD&OTH [...] ORAL CAPSULE 1 po bid MAGNESIUM OXIDE 67899666153 Active Fadumo Ruiz Active HYDROCODONE-ACETAMINOPHEN 7.5-325 MG ORAL TABLET Take 1 tab every 6-8 hours PRN HYDROCODONE-ACETAMINOPHEN 30791572658 Active Baltazar silverman MD Active HUMALOG 100 UNIT/ML SUBCUTANEOUS SOLUTION Take 10 units with every meal INSULIN LISPRO 70364919433 Active Baltazar Childers MD Active NOVOLOG 100 UNIT/ML SUBCUTANEOUS SOLUTION 5 units with each meal. 2 INSULIN ASPART 94344303498 No Longer Active LEANDRO Nugent ONGLYZA 2.5 MG TABS TAKE 1 TABLET BY MOUTH EVERY DAY FOR DIABETES 2 SAXAGLIPTIN HCL 46406156582 Active Baltazar Childers MD Active GLIPIZIDE 10MG TABLETS TAKE 2 TABLETS BY MOUTH TWICE DAILY GLIPIZIDE 61050251383 Active Baltazar Childers MD Active TRUE METRIX B/G TEST STRIPS 25'S TEST BLOOD SUGAR TWICE DAILY 03/02 GLUCOSE BLOOD 15844836314 Active KENDALL Juarez Active LEVOTHYROXINE 0.112MG (112MCG) TABS TAKE 1 TABLET BY MOUTH EVERY DAY LEVOTHYROXINE SODIUM 75594507537 Active Baltazar Childers MD Active AMLODIPINE BESYLATE 5MG TABLETS TAKE 1 TABLET BY MOUTH EVERY DAY FOR HYPERTENSION AMLODIPINE BESYLATE 14449836475 Active Estefania Hudson MA Active LANTUS SOLOSTAR 100 UNIT/ML SUBCUTANEOUS SOLUTION PEN- INJECTOR 20 units am and 13 units at night INSULIN GLARGINE 38475082242 Active Baltazar Childers MD Active TRAMADOL HCL 50 MG ORAL TABLET 1 twice a day as needed for pain TRAMADOL HCL 02023117356 No Longer Active Baltazar Childers MD Active ROBAXIN 500 MG ORAL TABLET Take 1.5 (one and one half) tabs once daily METHOCARBAMOL 93818805494 Active Baltazar Childers MD Active TRUE METRIX AIR GLUCOSE METER DEVICE Use as directed BLOOD GLUCOSE MONITORING SUPPL 82160026765 Active Baltazar Childers MD Activ e NORTRIPTYLINE HCL 50 MG ORAL CAPSULE 1 twice a day for neuropathy 2 NORTRIPTYLINE HCL 96518695538 Active Baltazar Childers MD Acti ve ASPIRIN 81 MG TBEC Take one (1) tablet by mouth daily ASPIRIN 56492532699 Active Baltazar Childers MD Active GABAPENTIN 300 MG ORAL CAPSULE 1 three times a day 201 12/03/26 GABAPENTIN 54633713613 No Longer Active Baltazar Childers MD Activ e LISINOPRIL 20 MG ORAL TABLET 1 tablet by mouth daily at night 2016 LISINOPRIL 43146515776 Active Baltazar Childers MD Active ZITHROMAX Z-ISAIAS 250 MG ORAL TABLET Take two tablets to day and then 1 tablet daily for 4 days AZITHROMYCIN 08472779438 No Longer A ctive Baltazar Childers MD Active SUCRALFATE 1 GM ORAL TABLET 1 four times a day to coat the stoma ch SUCRALFATE 11221359721 No Longer Active Baltazar Childers MD Active PEN NEEDLES 31G X 6 MM use 1 daily INSULIN PEN NE EDLE 95675037261 Active KENDALL Juarez Active TOUJEO SOLOSTAR 300 UNIT/ML SUBCUTANEOUS SOLUTION PEN- INJECTOR 10 units SC daily INSULIN GLARGINE 48562107789 No Longer Active S abigail Herbert RMA Active NAPROXEN SODIUM 220 MG ORAL TABLET 1 three times a day as needed NAPROXEN SODIUM 95822637185 No Longer Active Baltazar Childers MD Active ATORVASTATIN CALCIUM 20 MG ORAL TABLET Take 1 tab daily ATORVASTATIN CALCIUM 17312888689 Active Baltazar Childers MD A ctive FUROSEMIDE 40 MG ORAL TABLET Take one by mouth daily FUROSEMIDE 96772775956 Active Baltazar Childers MD Active LISINOPRIL 20 MG ORAL TABLET Take one by mouth daily at bedtime LISINOPRIL 26106677640 No Longer Active Baltazar Childers MD Active ONETOUCH ULTRA BLUE IN VITRO STRIP Test twice a day 07/11/11 GLUCOSE BLOOD 27848893261 No Longer Active Baltazar Childers MD Acti ve TRUEPLUS LANCETS 33G Test twice a day LANCETS 6147403 2296 Active KENDALL Juarez Active TRUEDRAW LANCING DEVICE Test twice a day LANCET DEVICES 44196804196 Active Baltazar Childers MD Active TRUETRACK BLOOD GLUCOSE w/Device KIT Test twice a day BLOOD GLUCOSE MONITORING SUPPL 52099038416 Active Baltazar Childers MD Activ e GABAPENTIN 300 MG ORAL CAPSULE 1 po qd x 2 days, then 1 po BID x 2 days, then 1 po TID GABAPENTIN 96163107544 No Longer Active Baltazar Childers MD Active NAPROXEN 500 MG ORAL TABLET 1 tablet by mouth twice daily NAPROXEN 26395636879 No Longer Active Baltazar Childers MD Active PROAIR HFA 108 (90 Base) MCG/ACT INHALATION AEROSOL SO LUTION 2 puffs four times a day as needed ALBUTEROL SULFATE 49662453963 Active R gilberto Libia Childers MD Active DEPO-TESTOSTERONE 200 MG/ML INTRAMUSCULAR SOLUTION as directed TESTOSTERONE CYPIONATE 55926525949 No Longer Active Baltazar Childers MD Active LIPITOR 20 MG ORAL TABLET Take one by mouth daily in evening ATORVASTATIN CALCIUM 11333305903 No Longer Active Baltazar Childers MD Active CRESTOR 10 MG ORAL TABLET 1 by mouth every day ROSUVASTATIN CALCIUM 81375551642 No Longer Active Baltazar Childers MD Active PHENTERMINE HCL 37.5 MG ORAL TABLET Take one by mouth daily PHENTERMINE HCL 64867403066 No Longer Active Baltazar Childers MD Ac tive TIZANIDINE HCL 4 MG ORAL TABLET 1 daily as needed for muscle spa sm TIZANIDINE HCL 88415885317 No Longer Active Dawna Salazar RN Active [id number] 50-325-40 MG ORAL TABLET 1 fo ur times a day as needed for heacache [id number] 96369113901 Active CÉSAR JuarezA Active SUMATRIPTAN SUCCINATE 100 MG ORAL TABLET 1 tablet by m outh at onset of migraine as needed SUMATRIPTAN SUCCINATE 60669000438 Active Fanny Hudson MA Active LORATADINE 10 MG ORAL TABLET Take one by mouth daily LORATADINE 36076238388 Active Fanny Hudson MA Active OMEPRAZOLE 20 MG ORAL CAPSULE DELAYED RELEASE Take one by mouth jostin ly OMEPRAZOLE 25028286204 Active Baltazar Childers MD Active HYDROXYZINE HCL 25 MG ORAL TABLET Take one by mouth daily HYDROXYZINE HCL 50000090392 Active Baltazar Childers MD Active ALPRAZOLAM 1 MG ORAL TABLET 1 tablet [facility] ALPR[facility]AM 86820112046 Active Fanny Hudson MA Active METFORMIN HCL 1000 MG ORAL TABLET Take one by mouth twice daily METFORMIN HCL 86483810908 Active Baltazar Childers MD Active TIZANIDINE HCL 4 MG ORAL TABLET 1 daily as needed for muscle spa sm TIZANIDINE HCL 4 MG ORAL TABLET 537048 TIZANIDINE HCL Inactive PHENTERMINE HCL 37.5 MG ORAL TABLET Take one by mouth daily PHENTERMINE HCL 37.5 MG ORAL TABLET 041544 PHENTERMINE HCL Inac tive CRESTOR 10 MG ORAL TABLET 1 by mouth every day CRESTOR 10 MG ORAL TABLET 432979 ROSUVASTATIN CALCIUM Inactive LIPITOR 20 MG ORAL TABLET Take one by mouth daily in evening LIPITOR 20 MG ORAL TABLET 917438 ATORVASTATIN CALCIUM Inactive DEPO-TESTOSTERONE 200 MG/ML INTRAMUSCULAR SOLUTION as directed DEPO-TESTOSTERONE 200 MG/ML INTRAMUSCULAR SOLUTION 4513419 RUFINO TOSTERONE CYPIONATE Inactive NAPROXEN 500 MG ORAL TABLET 1 tablet by mouth twice daily NAPROXEN 500 MG ORAL TABLET 128645 NAPROXEN Inactive GABAPENTIN 300 MG ORAL CAPSULE 1 po qd x 2 days, then 1 po BID x 2 days, then 1 po TID GABAPENTIN 300 MG ORAL CAPSULE 786968 GABAP ENTIN Inactive ONETOUCH ULTRA BLUE IN VITRO STRIP Test twice a day 07/11/11 ONETOUCH ULTRA BLUE IN VITRO STRIP GLUCOSE BLOOD Inact amie NAPROXEN SODIUM 220 MG ORAL TABLET 1 three times a day as needed NAPROXEN SODIUM 220 MG ORAL TABLET 56509043806 NAPROXEN SODI UM Inactive TOUJEO SOLOSTAR 300 UNIT/ML SUBCUTANEOUS SOLUTION PEN- INJECTOR 10 units SC daily TOUJEO SOLOSTAR 300 UNIT/ML SUBCUTANEOUS SOLUTION PEN-INJECTOR INSULIN GLARGINE Inactive SUCRALFATE 1 GM ORAL TABLET 1 four times a day to coat the stoma ch SUCRALFATE 1 GM ORAL TABLET 715139 SUCRALFATE Inac tive GABAPENTIN 300 MG ORAL CAPSULE 1 three times a day 201 12/03/26 GABAPENTIN 300 MG ORAL CAPSULE 098975 GABAPENTIN Inactive TRAMADOL HCL 50 MG ORAL TABLET 1 twice a day as needed for pain TRAMADOL HCL 50 MG ORAL TABLET 975979 TRAMADOL HCL I nactive ZITHROMAX Z-ISAIAS 250 MG ORAL TABLET Take two tablets to day and then 1 tablet daily for 4 days ZITHROMAX Z-ISAIAS 250 MG ORAL TAB LET 874680 AZITHROMYCIN Inactive Immunizations Vaccine Administration Date Value [...] Fluarix, Agriflu(>= 18 yo)) Fluzone (>3 yrs.) [[id number]] Influenza, seasonal, inject able Seasonal influenza vaccine, injectable, containing preservative, for > 3 years old (Afluria, FluLaval, Fluzone, Fluvirin, Fluarix, Agriflu(>= 18 yo)) Fluzone (>3 yrs.) [[id number]] Influenza, seasonal, inject able Vital Signs Date [...] - Chem istry sodium, serum 136 mmol/L 773-066 8043/06/04 potassium, serum 4.9 mmol/L 3.5-5.2 chloride, serum 97 mmol/L 98-107 carbon dioxide, venous blood 35.3 mmol/L 21.0-32 .0 blood glucose 239 mg/dL 65-95 calcium, serum 10.6 mg/dL 8.5-10.1 urea nitrogen, blood 31 mg/dL 7-18 creatinine, serum 2.33 mg/dL 0.60-1.30 Estimated Glomerular Filtration Rate (calc) 23 (?) mL/min/1.73m2 = OR > 60 mL/min sodium, serum 141 mmol/L 318-482 6459/07/09 potassium, serum 4.9 mmol/L 3.5-5.2 chloride, serum 103 mmol/L 98-107 carbon dioxide, venous blood 35.1 mmol/L 21.0-32 .0 blood glucose 203 mg/dL 65-95 calcium, serum 9.8 mg/dL 8.5-10.1 urea nitrogen, blood 13 mg/dL 7-18 creatinine, serum 1.76 mg/dL 0.60-1.30 Estimated Glomerular Filtration Rate (calc) 31 (?) mL/min/1.73m2 = OR > 60 mL/min Lab Report: Basic Metabolic Panel, [facility] C - Chemistry sodium, serum 137 mmol/L 196-440 2281/10/17 potassium, serum 4.9 mmol/L 3.5-5.2 chloride, serum [...] Ordered Encounters Code Encounter Date Provider Facility CPT-26393 55296-Ges Vst-Est Level IV 14:22:53 RN CHEMICAL DEPENDENCY Charlie Childers MD [facility] CPT-44367 89819-Jzp Vst-Est Level IV 15:48:51 RN CHEMICAL DEPENDENCY Charlie Childers MD [facility] CPT-32695 15493-Cue Vst-Est Level V 14:28:39 CDT Aneudy Childers MD [facility] CPT-11664 00126-Xyp Vst-Est Level IV 15:03:32 CDT Charlie Childers MD [facility] CPT-56351 71055-Ebz Vst-Est Level III 15:51:57 CDT Baltazar Childers MD [facility] CPT-13175 28958-Pzd Vst-Est Level IV 15:14:58 CDT Charlie Childers MD [facility] CPT-68490 55655-Nru Vst-Est Level IV 15:12:52 RN CHEMICAL DEPENDENCY Charlie Childers MD [facility] CPT-00334 91305-Daz Vst-Est Level IV 15:30:55 RN CHEMICAL DEPENDENCY Charlie Childers MD [facility]-19111 24329-Hei Vst-Est Level IV 13:49:06 C DT Ann Martinez [facility] CPT-07789 Level 4 Est. Patient 17:26:08 CDT Ann trujillo [facility] CPT-28237 21850-Fws Vst-Est Level V 14:26:27 CDT Aneudy Chliders [facility] CPT-32302 Level 4 Est. Patient 17:05:37 CDT Baltazar Childers MD [facility]-26211 Level 4 Est. Patient 16:21:19 RN CHEMICAL DEPENDENCY Baltazar Childers MD [facility] CPT-25633 Level 4 Est. Patient 12:25:11 CDT Baltazar Childers MD [facility] CPT-72207 Level 4 Est. Patient 14:22:31 CDT Baltazar Childers MD [facility] CPT-45161 Level 4 Est. Patient 15:44:38 CDT Shonna Parker APRN [facility] CPT-63715 Level 4 Est. Patient 11:34:17 CDT Baltazar Childers MD [facility] CPT-91221 Level 3 Est. Patient 16:40:40 CDT Baltazar Childers MD [facility] CPT-31950 Level 4 Est. Patient 10:41:24 CDT Baltazar Childers MD [facility] CPT-79771 Level 4 Est. Patient 16:01:48 CDT Baltazar Childers MD [facility]-23340 Level 4 Est. Patient 16:54:07 RN CHEMICAL DEPENDENCY Baltazar Childers MD [facility]-98024 Level 4 Est. Patient 15:42:12 CDT Baltazar Childers MD [facility] CPT-10410 Level 4 Est. Patient 11:29:55 CDT Baltazar Childers MD [facility] CPT-29986 Level 4 Est. Patient 14:15:19 CDT Baltazar Childers MD [facility] CPT-47059 Level 4 Est. Patient 12:20:13 CDT Baltazar Childers MD [facility] CPT-65901 Level 4 Est. Patient 14:52:45 RN CHEMICAL DEPENDENCY Baltazar Childers MD [facility] CPT-24644 Level 4 Est. Patient 14:18:34 RN CHEMICAL DEPENDENCY Baltazar Childers MD [facility] CPT-01899 Level 4 Est. Patient 15:18:29 CDT Baltazar Childers MD [facility] CPT-56137 Level 3 Est. Patient 12:45:34 CDT Baltazar Childers MD [facility] CPT-35829 Level 3 Est. Patient 10:10:11 CDT Baltazar Childers MD [facility] CPT-19530 Level 3 Est. Patient 14:07:50 CDT Baltazar Childers MD [facility] CPT-00361 Level 4 Est. Patient 12:26:10 RN CHEMICAL DEPENDENCY Baltazar Childers MD [facility] CPT-07267 Level 4 Est. Patient 14:45:38 CDT Baltazar Childers MD [facility] CPT-52033 Level 4 New Patient 12:30:48 CDT Baltazar hinton MD [facility] Procedures Code Procedure Name Date Entry Date Standard Desc ription CPT-52416 Venipuncture Draw Fee 16:24:55 RN CHEMICAL DEPENDENCY CPT-52225 19600 - Immun Admin 1 vac 14:54:52 RN CHEMICAL DEPENDENCY 2019 CPT-86922 Fluzone Quadrivalent (Flu) 0.5 mL 10Pk S yringe IM 14:54:52 RN CHEMICAL DEPENDENCY CPT-QZ1151L (4013F) Statin therapy prescribed or cur rently being taken 14:07:28 RN CHEMICAL DEPENDENCY CPT-MO8928M (3066F) Documentation of treatment for n ephropathy 14:07:28 RN CHEMICAL DEPENDENCY CPT-08975 Venipuncture Draw Fee 17:47:23 CDT CPT-62239 4M Drug Screen cup test, Multi-panel, urine 2018 14:28:39 CDT CPT-21771 Venipuncture Draw Fee 15:19:00 CDT CPT-000 Give Appropriate Flu Vaccine 12:25:14 CDT 2 CPT-95069 First Vx - Ix admin via ID I M or jet injects without counseling by physician 13:08:59 CDT CPT-83594 Fluzone Quadrivalent Intramuscular Suspe nsion 0.5 ML 13:08:59 CDT CPT-77175 Venipuncture Draw Fee 12:04:12 CDT CPT-05680 Lipid - LAB USE ONLY 17:39:15 RN CHEMICAL DEPENDENCY 9 CPT-81213 HGBA1C - LAB USE ONLY 17:39:15 RN CHEMICAL DEPENDENCY CPT-04352 CMP - LAB USE ONLY 17:39:14 RN CHEMICAL DEPENDENCY CPT-85061 Venipuncture Draw Fee 17:39:14 RN CHEMICAL DEPENDENCY CPT-88847 First Vx - Ix admin via ID I M or jet injects without counseling by physician 16:55:17 RN CHEMICAL DEPENDENCY CPT-68380 Fluzone Quadrivalent Intramuscular Suspe nsion 0.5 ML 16:55:17 RN CHEMICAL DEPENDENCY CPT-67786 Renal Panel - LAB USE ONLY 17:39:20 CDT 201 10/31/07 CPT-09773 CBC - LAB USE ONLY 17:39:20 CDT CPT-20978 Venipuncture Draw Fee 17:39:20 CDT CPT-40753 Venipuncture Draw Fee 14:33:30 CDT CPT-86535 Renal Panel - LAB USE ONLY 14:33:30 CDT 201 10/31/07 CPT-82373 CBC - LAB USE ONLY 14:33:29 CDT CPT-56966 Venipuncture Draw Fee 14:50:21 RN CHEMICAL DEPENDENCY CPT-33080 Immunization Single Admin 17:35:35 CDT 2014 CPT-27845 Fluzone Quadrivalent preservative free ( >=3yrs.) 17:35:35 CDT CPT-86379 Venipuncture Draw Fee 12:10:27 RN CHEMICAL DEPENDENCY CPT-84281 Fluzone Quadrivalent Intramuscular Suspe nsion 0.5 ML 10:49:13 CDT CPT-88058 First Vx Component - Ix admi n via ID IM or jet inj without physician counseling 15:17:19 RN CHEMICAL DEPENDENCY CPT-27421 Pneumovax 23 15:17:19 RN CHEMICAL DEPENDENCY CPT-86399 Pneumovax 14:52:45 RN CHEMICAL DEPENDENCY CPT-57386 Venipuncture Draw Fee 14:06:30 RN CHEMICAL DEPENDENCY CPT-000 Give Appropriate Flu Vaccine 14:18:34 RN CHEMICAL DEPENDENCY 2 CPT-04156 Administration single or combination vac cine inc oral 14:46:00 RN CHEMICAL DEPENDENCY CPT-67890 Influenza split virus > age 3 14:46:00 RN CHEMICAL DEPENDENCY CPT-OV Office Visit 19:13:16 CDT CPT-19947 Zostavax 18:41:56 CDT CPT-54824 Administration single or combination vac cine inc oral 12:56:39 CDT CPT-31864 Zoster Vaccine (Zostavax) 12:56:39 CDT 2012 CPT-31428 Venipuncture Draw Fee 10:58:57 CDT CPT-46671 Sono pelvis non OB uterus ovaries cervix 17:45:04 CDT CPT-89073 Sono retroperitoneal complete kidneys an d bladder 17:14:36 CDT CPT-OV Office Visit 14:59:38 RN CHEMICAL DEPENDENCY CPT-J1070 Depo Testosterone 100 mg 14:50:13 CDT 03/05 CPT-53763 Abx/Therapy Injection 14:50:13 CDT CPT-78877 Administration single or combination vac cine inc oral 14:34:43 CDT CPT-75864 Influenza split virus > age 3 14:34:43 CDT CPT-J1070 Depo Testosterone 100 mg 17:37:13 CDT 01/11 CPT-55795 Abx/Therapy Injection 17:37:13 CDT CPT-88280 Venipuncture Draw Fee 16:30:13 CDT CPT-99856 Venipuncture Draw Fee 16:29:43 CDT CPT-J1070 Depo Testosterone 100 mg 14:45:38 CDT 01/11
--- OUTSIDE RECORDS SUMMARY | 2019-10-27 11:32 | XMS REPORT | Clinical Summary ---
Author Author Admin, Elba Lance [facility] Address Unknown Phone Unavailable Allergies, Adverse Reactions, [...] Morbid obesity due to excess calories 278.01 [facility] Baltazar Childers MD Morbid obesity Obesity Class II (BMI 35-39.9) 278.01 Refinement 10/26 Baltazar Childers MD Morbid obesity Morbid obesity due to excess calories 278.01 [facility] Baltazar hCilders MD Morbid obesity Obesity Class II (BMI 35-39.9) 278.01 Refinement 01/19 Baltazar Childers MD Morbid obesity Morbid obesity due to excess calories 278.01 [facility] Baltazar Childers MD Morbid obesity Obesity [...] ronary atherosclerosis of unspecified type of vessel, [place] or graft OTH NONSPC ABN FINDNG RAD&OTH [...] ORAL CAPSULE 1 po bid MAGNESIUM OXIDE 37237212494 Active Fadumo Ruiz Active HYDROCODONE-ACETAMINOPHEN 7.5-325 MG ORAL TABLET Take 1 tab every 6-8 hours PRN HYDROCODONE-ACETAMINOPHEN 25535264118 Active Baltazar silverman MD Active HUMALOG 100 UNIT/ML SUBCUTANEOUS SOLUTION Take 10 units with every meal INSULIN LISPRO 67092151340 Active Baltazar Childers MD Active NOVOLOG 100 UNIT/ML SUBCUTANEOUS SOLUTION 5 units with each meal. 2 INSULIN ASPART 97323080621 No Longer Active LEANDRO Nugent ONGLYZA 2.5 MG TABS TAKE 1 TABLET BY MOUTH EVERY DAY FOR DIABETES 2 SAXAGLIPTIN HCL 40384850852 Active Baltazar Childers MD Active GLIPIZIDE 10MG TABLETS TAKE 2 TABLETS BY MOUTH TWICE DAILY GLIPIZIDE 31162376462 Active Baltazar Childers MD Active TRUE METRIX B/G TEST STRIPS 25'S TEST BLOOD SUGAR TWICE DAILY 03/02 GLUCOSE BLOOD 05270285869 Active KENDALL Juarez Active LEVOTHYROXINE 0.112MG (112MCG) TABS TAKE 1 TABLET BY MOUTH EVERY DAY LEVOTHYROXINE SODIUM 24701622246 Active Baltazar Childers MD Active AMLODIPINE BESYLATE 5MG TABLETS TAKE 1 TABLET BY MOUTH EVERY DAY FOR HYPERTENSION AMLODIPINE BESYLATE 44914778005 Active Estefania Hudson MA Active LANTUS SOLOSTAR 100 UNIT/ML SUBCUTANEOUS SOLUTION PEN- INJECTOR 20 units am and 13 units at night INSULIN GLARGINE 91529776863 Active Baltazar Childers MD Active TRAMADOL HCL 50 MG ORAL TABLET 1 twice a day as needed for pain TRAMADOL HCL 92795433270 No Longer Active Baltazar Childers MD Active ROBAXIN 500 MG ORAL TABLET Take 1.5 (one and one half) tabs once daily METHOCARBAMOL 61939260234 Active Baltazar Childers MD Active TRUE METRIX AIR GLUCOSE METER DEVICE Use as directed BLOOD GLUCOSE MONITORING SUPPL 09399114396 Active Baltazar Childers MD Activ e NORTRIPTYLINE HCL 50 MG ORAL CAPSULE 1 twice a day for neuropathy 2 NORTRIPTYLINE HCL 19912272231 Active Baltazar Childers MD Acti ve ASPIRIN 81 MG TBEC Take one (1) tablet by mouth daily ASPIRIN 92775967174 Active Baltazar Childers MD Active GABAPENTIN 300 MG ORAL CAPSULE 1 three times a day 201 12/03/26 GABAPENTIN 38324304297 No Longer Active Baltazar Childers MD Activ e LISINOPRIL 20 MG ORAL TABLET 1 tablet by mouth daily at night 2016 LISINOPRIL 99538731810 Active Baltazar Childers MD Active ZITHROMAX Z-ISAIAS 250 MG ORAL TABLET Take two tablets to day and then 1 tablet daily for 4 days AZITHROMYCIN 05494111257 No Longer A ctive Baltazar Childers MD Active SUCRALFATE 1 GM ORAL TABLET 1 four times a day to coat the stoma ch SUCRALFATE 72768903632 No Longer Active Baltazar Childers MD Active PEN NEEDLES 31G X 6 MM use 1 daily INSULIN PEN NE EDLE 49655076402 Active KENDALL Juarez Active TOUJEO SOLOSTAR 300 UNIT/ML SUBCUTANEOUS SOLUTION PEN- INJECTOR 10 units SC daily INSULIN GLARGINE 90840435203 No Longer Active S abigail Herbert RMA Active NAPROXEN SODIUM 220 MG ORAL TABLET 1 three times a day as needed NAPROXEN SODIUM 54557108014 No Longer Active Baltazar Childers MD Active ATORVASTATIN CALCIUM 20 MG ORAL TABLET Take 1 tab daily ATORVASTATIN CALCIUM 44469714499 Active Baltazar Childers MD A ctive FUROSEMIDE 40 MG ORAL TABLET Take one by mouth daily FUROSEMIDE 33640008819 Active Baltazar Childers MD Active LISINOPRIL 20 MG ORAL TABLET Take one by mouth daily at bedtime LISINOPRIL 93736772865 No Longer Active Baltazar Childers MD Active ONETOUCH ULTRA BLUE IN VITRO STRIP Test twice a day 07/11/11 GLUCOSE BLOOD 85116572269 No Longer Active Baltazar Childers MD Acti ve TRUEPLUS LANCETS 33G Test twice a day LANCETS 3828402 4672 Active KENDALL Juarez Active TRUEDRAW LANCING DEVICE Test twice a day LANCET DEVICES 73010623907 Active Baltazar Childers MD Active TRUETRACK BLOOD GLUCOSE w/Device KIT Test twice a day BLOOD GLUCOSE MONITORING SUPPL 74057669191 Active Baltazar Childers MD Activ e GABAPENTIN 300 MG ORAL CAPSULE 1 po qd x 2 days, then 1 po BID x 2 days, then 1 po TID GABAPENTIN 52485848091 No Longer Active Baltazar Childers MD Active NAPROXEN 500 MG ORAL TABLET 1 tablet by mouth twice daily NAPROXEN 13215025470 No Longer Active Baltazar Childers MD Active PROAIR HFA 108 (90 Base) MCG/ACT INHALATION AEROSOL SO LUTION 2 puffs four times a day as needed ALBUTEROL SULFATE 06570908236 Active R gilberto Libia Childers MD Active DEPO-TESTOSTERONE 200 MG/ML INTRAMUSCULAR SOLUTION as directed TESTOSTERONE CYPIONATE 60762504769 No Longer Active Baltazar Childers MD Active LIPITOR 20 MG ORAL TABLET Take one by mouth daily in evening ATORVASTATIN CALCIUM 79747197991 No Longer Active Baltazar Childers MD Active CRESTOR 10 MG ORAL TABLET 1 by mouth every day ROSUVASTATIN CALCIUM 15702799684 No Longer Active Baltazar Childers MD Active PHENTERMINE HCL 37.5 MG ORAL TABLET Take one by mouth daily PHENTERMINE HCL 74068276526 No Longer Active Baltazar Childers MD Ac tive TIZANIDINE HCL 4 MG ORAL TABLET 1 daily as needed for muscle spa sm TIZANIDINE HCL 97098155090 No Longer Active Dawna Salazar RN Active [id number] 50-325-40 MG ORAL TABLET 1 fo ur times a day as needed for heacache AIDANLNOYD-[id number] 87971314790 Active CÉSAR JuarezA Active SUMATRIPTAN SUCCINATE 100 MG ORAL TABLET 1 tablet by m outh at onset of migraine as needed SUMATRIPTAN SUCCINATE 37892094108 Active Fanny Hudson MA Active LORATADINE 10 MG ORAL TABLET Take one by mouth daily LORATADINE 97450689262 Active Fanny Hudson MA Active OMEPRAZOLE 20 MG ORAL CAPSULE DELAYED RELEASE Take one by mouth jostin ly OMEPRAZOLE 70765532675 Active Baltazar Childers MD Active HYDROXYZINE HCL 25 MG ORAL TABLET Take one by mouth daily HYDROXYZINE HCL 08260249663 Active Baltazar Childers MD Active ALPRAZOLAM 1 MG ORAL TABLET 1 tablet by mouth daily at [facility] ALPRAZOLAM 50925704712 Active Fanny Hudson MA Active METFORMIN HCL 1000 MG ORAL TABLET Take one by mouth twice daily METFORMIN HCL 62609824835 Active Baltazar Childers MD Active TIZANIDINE HCL 4 MG ORAL TABLET 1 daily as needed for muscle spa sm TIZANIDINE HCL 4 MG ORAL TABLET 923874 TIZANIDINE HCL Inactive PHENTERMINE HCL 37.5 MG ORAL TABLET Take one by mouth daily PHENTERMINE HCL 37.5 MG ORAL TABLET 904785 PHENTERMINE HCL Inac tive CRESTOR 10 MG ORAL TABLET 1 by mouth every day CRESTOR 10 MG ORAL TABLET 883254 ROSUVASTATIN CALCIUM Inactive LIPITOR 20 MG ORAL TABLET Take one by mouth daily in evening LIPITOR 20 MG ORAL TABLET 767616 ATORVASTATIN CALCIUM Inactive DEPO-TESTOSTERONE 200 MG/ML INTRAMUSCULAR SOLUTION as directed DEPO-TESTOSTERONE 200 MG/ML INTRAMUSCULAR SOLUTION 9206028 RUFINO TOSTERONE CYPIONATE Inactive NAPROXEN 500 MG ORAL TABLET 1 tablet by mouth twice daily NAPROXEN 500 MG ORAL TABLET 135728 NAPROXEN Inactive GABAPENTIN 300 MG ORAL CAPSULE 1 po qd x 2 days, then 1 po BID x 2 days, then 1 po TID GABAPENTIN 300 MG ORAL CAPSULE 718978 GABAP ENTIN Inactive ONETOUCH ULTRA BLUE IN VITRO STRIP Test twice a day 07/11/11 ONETOUCH ULTRA BLUE IN VITRO STRIP GLUCOSE BLOOD Inact amie NAPROXEN SODIUM 220 MG ORAL TABLET 1 three times a day as needed NAPROXEN SODIUM 220 MG ORAL TABLET 35861517962 NAPROXEN SODI UM Inactive TOUJEO SOLOSTAR 300 UNIT/ML SUBCUTANEOUS SOLUTION PEN- INJECTOR 10 units SC daily TOUJEO SOLOSTAR 300 UNIT/ML SUBCUTANEOUS SOLUTION PEN-INJECTOR INSULIN GLARGINE Inactive SUCRALFATE 1 GM ORAL TABLET 1 four times a day to coat the stoma ch SUCRALFATE 1 GM ORAL TABLET 608972 SUCRALFATE Inac tive GABAPENTIN 300 MG ORAL CAPSULE 1 three times a day 201 12/03/26 GABAPENTIN 300 MG ORAL CAPSULE 682635 GABAPENTIN Inactive TRAMADOL HCL 50 MG ORAL TABLET 1 twice a day as needed for pain TRAMADOL HCL 50 MG ORAL TABLET 901801 TRAMADOL HCL I nactive ZITHROMAX Z-ISAIAS 250 MG ORAL TABLET Take two tablets to day and then 1 tablet daily for 4 days ZITHROMAX Z-ISAIAS 250 MG ORAL TAB LET 010580 AZITHROMYCIN Inactive Immunizations Vaccine Administration Date Value [...] Fluarix, Agriflu(>= 18 yo)) Fluzone (>3 yrs.) [[id number]] Influenza, seasonal, inject able Seasonal influenza vaccine, injectable, containing preservative, for > 3 years old (Afluria, FluLaval, Fluzone, Fluvirin, Fluarix, Agriflu(>= 18 yo)) Fluzone (>3 yrs.) [[id number]] Influenza, seasonal, inject able Vital Signs Date [...] - Chem istry sodium, serum 136 mmol/L 754-541 8638/06/04 potassium, serum 4.9 mmol/L 3.5-5.2 chloride, serum 97 mmol/L 98-107 carbon dioxide, venous blood 35.3 mmol/L 21.0-32 .0 blood glucose 239 mg/dL 65-95 calcium, serum 10.6 mg/dL 8.5-10.1 urea nitrogen, blood 31 mg/dL 7-18 creatinine, serum 2.33 mg/dL 0.60-1.30 Estimated Glomerular Filtration Rate (calc) 23 (?) mL/min/1.73m2 = OR > 60 mL/min sodium, serum 141 mmol/L 318-834 5863/07/09 potassium, serum 4.9 mmol/L 3.5-5.2 chloride, serum 103 mmol/L 98-107 carbon dioxide, venous blood 35.1 mmol/L 21.0-32 .0 blood glucose 203 mg/dL 65-95 calcium, serum 9.8 mg/dL 8.5-10.1 urea nitrogen, blood 13 mg/dL 7-18 creatinine, serum 1.76 mg/dL 0.60-1.30 Estimated Glomerular Filtration Rate (calc) 31 (?) mL/min/1.73m2 = OR > 60 mL/min Lab Report: Basic Metabolic Panel, [facility] C - Chemistry sodium, serum 137 mmol/L 010-849 7189/10/17 potassium, serum 4.9 mmol/L 3.5-5.2 chloride, serum [...] Ordered Encounters Code Encounter Date Provider Facility CPT-46094 [id number] Vst-Est Level IV 14:22:53 PARAPROFESSIONAL AIDE Charlie Childers MD [facility] CPT-33490 [id number] Vst-Est Level IV 15:48:51 PARAPROFESSIONAL AIDE Charlie Childers MD [facility] CPT-59764 [id number] Vst-Est Level V 14:28:39 CDT Aneudy Childers MD [facility] CPT-34154 [id number] Vst-Est Level IV 15:03:32 CDT Charlie Childers MD [facility] CPT-73925 [id number] Vst-Est Level III 15:51:57 CDT Baltazar Childers MD [facility] CPT-63103 06301-Vhm Vst-Est Level IV 15:14:58 CDT Charlie Childers MD [facility] CPT-76742 42557-Wpb Vst-Est Level IV 15:12:52 PARAPROFESSIONAL AIDE Charlie Childers MD [facility] CPT-73904 [id number] Vst-Est Level IV 15:30:55 PARAPROFESSIONAL AIDE Charlie Childers MD [facility]-98235 54746-Hrd Vst-Est Level IV 13:49:06 C DT Ann Martinez [facility] CPT-44075 Level 4 Est. Patient 17:26:08 CDT Ann trujillo [facility] CPT-75107 13910-Tmv Vst-Est Level V 14:26:27 CDT Aneudy Childers [facility] CPT-20700 Level 4 Est. Patient 17:05:37 CDT Baltazar Childers MD [facility]-60537 Level 4 Est. Patient 16:21:19 PARAPROFESSIONAL AIDE Baltazar Childers MD [facility] CPT-25416 Level 4 Est. Patient 12:25:11 CDT Baltazar Childers MD [facility] CPT-54095 Level 4 Est. Patient 14:22:31 CDT Batlazar Childers MD [facility] CPT-58630 Level 4 Est. Patient 15:44:38 CDT Shonna Parker APRN [facility] CPT-85710 Level 4 Est. Patient 11:34:17 CDT Baltazar Childers MD [facility] CPT-59399 Level 3 Est. Patient 16:40:40 CDT Baltazar Childers MD [facility] CPT-18730 Level 4 Est. Patient 10:41:24 CDT Baltazar Childers MD [facility] CPT-60507 Level 4 Est. Patient 16:01:48 CDT Baltazar Childers MD [facility]-02199 Level 4 Est. Patient 16:54:07 PARAPROFESSIONAL AIDE Baltazar Childers MD [facility]-66139 Level 4 Est. Patient 15:42:12 CDT Baltazar Childers MD [facility] CPT-69433 Level 4 Est. Patient 11:29:55 CDT Baltazar Childers MD [facility] CPT-97930 Level 4 Est. Patient 14:15:19 CDT Baltazar Childers MD [facility] CPT-17830 Level 4 Est. Patient 12:20:13 CDT Baltazar Childers MD [facility] CPT-36239 Level 4 Est. Patient 14:52:45 PARAPROFESSIONAL AIDE Baltazar Childers MD [facility] CPT-63200 Level 4 Est. Patient 14:18:34 PARAPROFESSIONAL AIDE Baltazar Childers MD [facility] CPT-10086 Level 4 Est. Patient 15:18:29 CDT Baltazar Childers MD [facility] CPT-96430 Level 3 Est. Patient 12:45:34 CDT Baltazar Childers MD [facility] CPT-27773 Level 3 Est. Patient 10:10:11 CDT Baltazar Childers MD [facility] CPT-86193 Level 3 Est. Patient 14:07:50 CDT Baltazar Childers MD [facility] CPT-57557 Level 4 Est. Patient 12:26:10 PARAPROFESSIONAL AIDE Baltazar Childers MD [facility] CPT-75707 Level 4 Est. Patient 14:45:38 CDT Baltazar Childers MD [facility] CPT-89740 Level 4 New Patient 12:30:48 CDT Baltazar hinton MD [facility] Procedures Code Procedure Name Date Entry Date Standard Desc ription CPT-85232 Venipuncture Draw Fee 16:24:55 PARAPROFESSIONAL AIDE CPT-46660 56963 - Immun Admin 1 vac 14:54:52 PARAPROFESSIONAL AIDE 2019 CPT-05845 Fluzone Quadrivalent (Flu) 0.5 mL 10Pk S yringe IM 14:54:52 PARAPROFESSIONAL AIDE CPT-GE4718Z (4013F) Statin therapy prescribed or cur rently being taken 14:07:28 PARAPROFESSIONAL AIDE CPT-UC3229L (3066F) Documentation of treatment for n ephropathy 14:07:28 PARAPROFESSIONAL AIDE CPT-80985 Venipuncture Draw Fee 17:47:23 CDT CPT-44001 4M Drug Screen cup test, Multi-panel, urine 2018 14:28:39 CDT CPT-03159 Venipuncture Draw Fee 15:19:00 CDT CPT-000 Give Appropriate Flu Vaccine 12:25:14 CDT 2 CPT-00738 First Vx - Ix admin via ID I M or jet injects without counseling by physician 13:08:59 CDT CPT-31591 Fluzone Quadrivalent Intramuscular Suspe nsion 0.5 ML 13:08:59 CDT CPT-16081 Venipuncture Draw Fee 12:04:12 CDT CPT-85948 Lipid - LAB USE ONLY 17:39:15 PARAPROFESSIONAL AIDE 9 CPT-67508 HGBA1C - LAB USE ONLY 17:39:15 PARAPROFESSIONAL AIDE CPT-18396 CMP - LAB USE ONLY 17:39:14 PARAPROFESSIONAL AIDE CPT-96475 Venipuncture Draw Fee 17:39:14 PARAPROFESSIONAL AIDE CPT-27687 First Vx - Ix admin via ID I M or jet injects without counseling by physician 16:55:17 PARAPROFESSIONAL AIDE CPT-15403 Fluzone Quadrivalent Intramuscular Suspe nsion 0.5 ML 16:55:17 PARAPROFESSIONAL AIDE CPT-90445 Renal Panel - LAB USE ONLY 17:39:20 CDT 201 10/31/07 CPT-84155 CBC - LAB USE ONLY 17:39:20 CDT CPT-52796 Venipuncture Draw Fee 17:39:20 CDT CPT-68840 Venipuncture Draw Fee 14:33:30 CDT CPT-73659 Renal Panel - LAB USE ONLY 14:33:30 CDT 201 10/31/07 CPT-82378 CBC - LAB USE ONLY 14:33:29 CDT CPT-39601 Venipuncture Draw Fee 14:50:21 PARAPROFESSIONAL AIDE CPT-88718 Immunization Single Admin 17:35:35 CDT 2014 CPT-12935 Fluzone Quadrivalent preservative free ( >=3yrs.) 17:35:35 CDT CPT-91542 Venipuncture Draw Fee 12:10:27 PARAPROFESSIONAL AIDE CPT-32362 Fluzone Quadrivalent Intramuscular Suspe nsion 0.5 ML 10:49:13 CDT CPT-05028 First Vx Component - Ix admi n via ID IM or jet inj without physician counseling 15:17:19 PARAPROFESSIONAL AIDE CPT-65182 Pneumovax 23 15:17:19 PARAPROFESSIONAL AIDE CPT-02696 Pneumovax 14:52:45 PARAPROFESSIONAL AIDE CPT-96039 Venipuncture Draw Fee 14:06:30 PARAPROFESSIONAL AIDE CPT-000 Give Appropriate Flu Vaccine 14:18:34 PARAPROFESSIONAL AIDE 2 CPT-60522 Administration single or combination vac cine inc oral 14:46:00 PARAPROFESSIONAL AIDE CPT-93126 Influenza split virus > age 3 14:46:00 PARAPROFESSIONAL AIDE CPT-OV Office Visit 19:13:16 CDT CPT-16932 Zostavax 18:41:56 CDT CPT-34646 Administration single or combination vac cine inc oral 12:56:39 CDT CPT-28365 Zoster Vaccine (Zostavax) 12:56:39 CDT 2012 CPT-83817 Venipuncture Draw Fee 10:58:57 CDT CPT-81366 Sono pelvis non OB uterus ovaries cervix 17:45:04 CDT CPT-08250 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
--- OUTSIDE RECORDS SUMMARY | 2019-10-27 11:32 | XMS REPORT | Clinical Summary ---
Author Author Admin, Elba Lance [facility] Address Unknown Phone Unavailable Allergies, Adverse [...] Morbid obesity due to excess calories 278.01 [facility] t Baltazar Childers MD Morbid obesity Obesity Class II (BMI 35-39.9) 278.01 Refinement 10/26 Baltazar Childers MD Morbid obesity Morbid obesity due to excess calories 278.01 [facility] t Baltazar Childers MD Morbid obesity Obesity Class II (BMI 35-39.9) 278.01 Refinement 01/19 Baltazar Childers MD Morbid obesity Morbid obesity due to excess calories 278.01 [facility] t Baltazar Childers MD [...] ronary atherosclerosis of unspecified type of vessel, [place] or graft OTH NONSPC ABN FINDNG RAD&OTH [...] 1 tab every 6-8 hours PRN HYDROCODONE-ACETAMINOPHEN 39224328840 Active Baltazar silverman MD Active HUMALOG 100 UNIT/ML SUBCUTANEOUS SOLUTION Take 10 units with every meal INSULIN LISPRO 56557471032 Active Baltazar Childers MD Active NOVOLOG 100 UNIT/ML SUBCUTANEOUS SOLUTION 5 units with each meal. 2 INSULIN ASPART 39799358507 No Longer Active Fanny Hudson MA Activ e ONGLYZA 2.5 MG TABS TAKE 1 TABLET BY MOUTH EVERY DAY FOR DIABETES 2 SAXAGLIPTIN HCL 35630280113 Active Baltazar Childers MD Active GLIPIZIDE 10MG TABLETS TAKE 2 TABLETS BY MOUTH TWICE DAILY GLIPIZIDE 79771076420 Active Baltazar Childers MD Active TRUE METRIX B/G TEST STRIPS 25'S TEST BLOOD SUGAR TWICE DAILY 03/02 GLUCOSE BLOOD 16929831431 Active KENDALL Juarez Active LEVOTHYROXINE 0.112MG (112MCG) TABS TAKE 1 TABLET BY MOUTH EVERY DAY LEVOTHYROXINE SODIUM 63656020993 Active Baltazar Childers MD Active AMLODIPINE BESYLATE 5MG TABLETS TAKE 1 TABLET BY MOUTH EVERY DAY FOR HYPERTENSION AMLODIPINE BESYLATE 16822416445 Active Estefania Hudson MA Active LANTUS SOLOSTAR 100 UNIT/ML SUBCUTANEOUS SOLUTION PEN- INJECTOR 20 units am and 13 units at night INSULIN GLARGINE 66293401349 Active Baltazar Childers MD Active TRAMADOL HCL 50 MG ORAL TABLET 1 twice a day as needed for pain TRAMADOL HCL 72635819060 No Longer Active Baltazar Childers MD Active ROBAXIN 500 MG ORAL TABLET Take 1.5 (one and one half) tabs once daily METHOCARBAMOL 31009230099 Active Baltazar Childers MD Active TRUE METRIX AIR GLUCOSE METER DEVICE Use as directed BLOOD GLUCOSE MONITORING SUPPL 94109832991 Active Baltazar Childers MD Activ e NORTRIPTYLINE HCL 50 MG ORAL CAPSULE 1 twice a day for neuropathy 2 NORTRIPTYLINE HCL 26139099885 Active Baltazar Childers MD Acti ve ASPIRIN 81 MG TBEC Take one (1) tablet by mouth daily ASPIRIN 41681148628 Active Baltazar Childers MD Active GABAPENTIN 300 MG ORAL CAPSULE 1 three times a day 201 12/03/26 GABAPENTIN 38172320829 No Longer Active Baltazar Childers MD Activ e LISINOPRIL 20 MG ORAL TABLET 1 tablet by mouth daily at night 2016 LISINOPRIL 05726648141 Active Baltazar Childers MD Active ZITHROMAX Z-ISAIAS 250 MG ORAL TABLET Take two tablets to day and then 1 tablet daily for 4 days AZITHROMYCIN 90828004169 No Longer A ctive Baltazar Childers MD Active SUCRALFATE 1 GM ORAL TABLET 1 four times a day to coat the stoma ch SUCRALFATE 68707203500 No Longer Active Baltazar Childers MD Active PEN NEEDLES 31G X 6 MM use 1 daily INSULIN PEN NE EDLE 65688323750 Active KENDALL Juarez Active CELINA PARIKH 300 UNIT/ML SUBCUTANEOUS SOLUTION PEN- INJECTOR 10 units SC daily INSULIN GLARGINE 84691856932 No Longer Active Rola ARGUETA Active NAPROXEN SODIUM 220 MG ORAL TABLET 1 three times a day as needed NAPROXEN SODIUM 08052394578 No Longer Active Baltazar Childers MD Active ATORVASTATIN CALCIUM 20 MG ORAL TABLET Take 1 tab daily ATORVASTATIN CALCIUM 70704921625 Active Baltazar Childers MD A ctive FUROSEMIDE 40 MG ORAL TABLET Take one by mouth daily FUROSEMIDE 38691988679 Active Baltazar Childers MD Active LISINOPRIL 20 MG ORAL TABLET Take one by mouth daily at bedtime LISINOPRIL 00490800575 No Longer Active Baltazar Childers MD Active ONETOUCH ULTRA BLUE IN VITRO STRIP Test twice a day 07/11/11 GLUCOSE BLOOD 28810735693 No Longer Active Baltazar Childers MD Acti ve TRUEPLUS LANCETS 33G Test twice a day LANCETS 5493821 5003 Active KENDALL Juarez Active TRUEDRAW LANCING DEVICE Test twice a day LANCET DEVICES 00811611948 Active Baltazar Childers MD Active TRUETRACK BLOOD GLUCOSE w/Device KIT Test twice a day BLOOD GLUCOSE MONITORING SUPPL 71303500657 Active Baltazar Childers MD Activ e GABAPENTIN 300 MG ORAL CAPSULE 1 po qd x 2 days, then 1 po BID x 2 days, then 1 po TID GABAPENTIN 45717905140 No Longer Active Baltazar Childers MD Active NAPROXEN 500 MG ORAL TABLET 1 tablet by mouth twice daily NAPROXEN 67040957854 No Longer Active Baltazar Childers MD Active PROAIR HFA 108 (90 Base) MCG/ACT INHALATION AEROSOL SO LUTION 2 puffs four times a day as needed ALBUTEROL SULFATE 65372942810 Active Paul Childers MD Active DEPO-TESTOSTERONE 200 MG/ML INTRAMUSCULAR SOLUTION as directed TESTOSTERONE CYPIONATE 90618823416 No Longer Active Baltazar Childers MD Active LIPITOR 20 MG ORAL TABLET Take one by mouth daily in evening ATORVASTATIN CALCIUM 20245094119 No Longer Active Baltazar Childers MD Active CRESTOR 10 MG ORAL TABLET 1 by mouth every day ROSUVASTATIN CALCIUM 63102787274 No Longer Active Baltazar Childers MD Active PHENTERMINE HCL 37.5 MG ORAL TABLET Take one by mouth daily PHENTERMINE HCL 15463596740 No Longer Active Baltazar Childers MD Ac tive TIZANIDINE HCL 4 MG ORAL TABLET 1 daily as needed for muscle spa sm TIZANIDINE HCL 74241593845 No Longer Active Dawna Salazar RN Active [id number] 50-325-40 MG ORAL TABLET 1 fo ur times a day as needed for heacache [id number] 13130330300 Active KENDALL Juarez Active SUMATRIPTAN SUCCINATE 100 MG ORAL TABLET 1 tablet by m outh at onset of migraine as needed SUMATRIPTAN SUCCINATE 03084784699 Active Fanny Hudson MA Active LORATADINE 10 MG ORAL TABLET Take one by mouth daily LORATADINE 23842683175 Active Fanny Hudson MA Active OMEPRAZOLE 20 MG ORAL CAPSULE DELAYED RELEASE Take one by mouth jostin ly OMEPRAZOLE 19732879182 Active Baltazar Childers MD Active HYDROXYZINE HCL 25 MG ORAL TABLET Take one by mouth daily HYDROXYZINE HCL 47892889432 Active Baltazar Childers MD Active ALPRAZOLAM 1 MG ORAL TABLET 1 tablet by mouth daily at [facility] ALPRAZOLAM 01894967794 Active Fanny Hudson MA Active METFORMIN HCL 1000 MG ORAL TABLET Take one by mouth twice daily METFORMIN HCL 40302687684 Active Baltazar Childers MD Active TIZANIDINE HCL 4 MG ORAL TABLET 1 daily as needed for muscle spa sm TIZANIDINE HCL 4 MG ORAL TABLET 292537 TIZANIDINE HCL Inactive PHENTERMINE HCL 37.5 MG ORAL TABLET Take one by mouth daily PHENTERMINE HCL 37.5 MG ORAL TABLET 877794 PHENTERMINE HCL Inac tive CRESTOR 10 MG ORAL TABLET 1 by mouth every day CRESTOR 10 MG ORAL TABLET 150769 ROSUVASTATIN CALCIUM Inactive LIPITOR 20 MG ORAL TABLET Take one by mouth daily in evening LIPITOR 20 MG ORAL TABLET 839005 ATORVASTATIN CALCIUM Inactive DEPO-TESTOSTERONE 200 MG/ML INTRAMUSCULAR SOLUTION as directed DEPO-TESTOSTERONE 200 MG/ML INTRAMUSCULAR SOLUTION 0853507 RUFINO TOSTERONE CYPIONATE Inactive NAPROXEN 500 MG ORAL TABLET 1 tablet by mouth twice daily NAPROXEN 500 MG ORAL TABLET 017762 NAPROXEN Inactive GABAPENTIN 300 MG ORAL CAPSULE 1 po qd x 2 days, then 1 po BID x 2 days, then 1 po TID GABAPENTIN 300 MG ORAL CAPSULE 121439 GABAP ENTIN Inactive ONETOUCH ULTRA BLUE IN VITRO STRIP Test twice a day 07/11/11 ONETOUCH ULTRA BLUE IN VITRO STRIP GLUCOSE BLOOD Inact amie NAPROXEN SODIUM 220 MG ORAL TABLET 1 three times a day as needed NAPROXEN SODIUM 220 MG ORAL TABLET 48341495968 NAPROXEN SODI UM Inactive TOUJEO SOLOSTAR 300 UNIT/ML SUBCUTANEOUS SOLUTION PEN- INJECTOR 10 units SC daily TOUJEO SOLOSTAR 300 UNIT/ML SUBCUTANEOUS SOLUTION PEN-INJECTOR INSULIN GLARGINE Inactive SUCRALFATE 1 GM ORAL TABLET 1 four times a day to coat the stoma ch SUCRALFATE 1 GM ORAL TABLET 711263 SUCRALFATE Inac tive GABAPENTIN 300 MG ORAL CAPSULE 1 three times a day 201 12/03/26 GABAPENTIN 300 MG ORAL CAPSULE 985965 GABAPENTIN Inactive TRAMADOL HCL 50 MG ORAL TABLET 1 twice a day as needed for pain TRAMADOL HCL 50 MG ORAL TABLET 070685 TRAMADOL HCL I nactive ZITHROMAX Z-ISAIAS 250 MG ORAL TABLET Take two tablets to day and then 1 tablet daily for 4 days ZITHROMAX Z-ISAIAS 250 MG ORAL TAB LET 882222 AZITHROMYCIN Inactive Immunizations Vaccine Administration Date Value [...] Fluarix, Agriflu(>= 18 yo)) Fluzone (>3 yrs.) [AHI006] Influenza, seasonal, inject able Seasonal influenza vaccine, injectable, containing preservative, for > 3 years old (Afluria, FluLaval, Fluzone, Fluvirin, Fluarix, Agriflu(>= 18 yo)) Fluzone (>3 yrs.) [EHR489] Influenza, seasonal, inject able Vital Signs Date [...] - Chem istry sodium, serum 136 mmol/L 890-970 6188/06/04 potassium, serum 4.9 mmol/L 3.5-5.2 chloride, serum 97 mmol/L 98-107 carbon dioxide, venous blood 35.3 mmol/L 21.0-32 .0 blood glucose 239 mg/dL 65-95 calcium, serum 10.6 mg/dL 8.5-10.1 urea nitrogen, blood 31 mg/dL 7-18 creatinine, serum 2.33 mg/dL 0.60-1.30 Estimated Glomerular Filtration Rate (calc) 23 (?) mL/min/1.73m2 = OR > 60 mL/min sodium, serum 141 mmol/L 776-757 7557/07/09 potassium, serum 4.9 mmol/L 3.5-5.2 chloride, serum [...] C - Chemistry sodium, serum 137 mmol/L 313-701 6565/10/17 potassium, serum 4.9 mmol/L 3.5-5.2 chloride, serum [...] Ordered Encounters Code Encounter Date Provider Facility CPT-46817 [id number] Vst-Est Level IV 14:22:53 BELT WORKER Charlie Childers MD [facility] CPT-96751 [id number] Vst-Est Level IV 15:48:51 BELT WORKER Charlie Childers MD [facility] CPT-66648 [id number] Vst-Est Level V 14:28:39 CDT Aneudy Childers MD [facility] CPT-81752 [id number] Vst-Est Level IV 15:03:32 CDT Charlie Childers MD [facility] CPT-97788 86070-Asa Vst-Est Level III 15:51:57 CDT Baltazar Childers MD [facility] CPT-73787 70739-Isk Vst-Est Level IV 15:14:58 CDT Charlie Childers MD [facility] CPT-66015 87526-Kog Vst-Est Level IV 15:12:52 BELT WORKER Charlie Childers MD [facility] CPT-74304 08061-Xjw Vst-Est Level IV 15:30:55 BELT WORKER Charlie Childers MD [facility] CPT-64796 [id number] Vst-Est Level IV 13:49:06 C DT Ann Martinez [facility] [[email or web address] CPT-23685 Level 4 Est. Patient 17:26:08 CDT [facility] CPT-34130 23647-Bae Vst-Est Level V 14:26:27 CDT Aneudy Childers MD [facility] CPT-74505 Level 4 Est. Patient 17:05:37 CDT Baltazar Childers MD [facility] CPT-46643 Level 4 Est. Patient 16:21:19 BELT WORKER Baltazar Childers MD [facility] CPT-79794 Level 4 Est. Patient 12:25:11 CDT Baltazar Childers MD [facility] CPT-59442 Level 4 Est. Patient 14:22:31 CDT Baltazar Childers MD [facility] CPT-04633 Level 4 Est. Patient 15:44:38 CDT Shonna Parker APRN [facility] CPT-90803 Level 4 Est. Patient 11:34:17 CDT Baltazar Childers MD [facility] CPT-06179 Level 3 Est. Patient 16:40:40 CDT Baltazar Childers MD [facility] CPT-62252 Level 4 Est. Patient 10:41:24 CDT Baltazar Childers MD [facility] CPT-21384 Level 4 Est. Patient 16:01:48 CDT Baltazar Childers MD [facility] CPT-21391 Level 4 Est. Patient 16:54:07 BELT WORKER Baltazar Childers MD [facility] CPT-97707 Level 4 Est. Patient 15:42:12 CDT Baltazar Childers MD [facility] CPT-27309 Level 4 Est. Patient 11:29:55 CDT Baltazar Childers MD [facility] CPT-35462 Level 4 Est. Patient 14:15:19 CDT Baltazar Childers MD [facility] CPT-92558 Level 4 Est. Patient 12:20:13 CDT Baltazar Childers MD [facility] CPT-33949 Level 4 Est. Patient 14:52:45 BELT WORKER Baltazar Childers MD [facility] CPT-69038 Level 4 Est. Patient 14:18:34 BELT WORKER Baltazar Childers MD [facility] CPT-38955 Level 4 Est. Patient 15:18:29 CDT Baltazar Childers MD [facility] CPT-14730 Level 3 Est. Patient 12:45:34 CDT Baltazar Childers MD [facility] CPT-89815 Level 3 Est. Patient 10:10:11 CDT Baltazar Childers MD [facility] CPT-92524 Level 3 Est. Patient 14:07:50 CDT Baltazar Childers MD [facility] CPT-85069 Level 4 Est. Patient 12:26:10 BELT WORKER Baltazar Childers MD [facility] CPT-99233 Level 4 Est. Patient 14:45:38 CDT Baltazar Childers MD [facility] CPT-61891 Level 4 New Patient 12:30:48 CDT Baltazar hinton MD [facility] Procedures Code Procedure Name Date Entry Date Standard Desc ription CPT-70133 Venipuncture Draw Fee 16:24:55 BELT WORKER CPT-74356 70927 - Immun Admin 1 vac 14:54:52 BELT WORKER 2019 CPT-52179 Fluzone Quadrivalent (Flu) 0.5 mL 10Pk S yringe IM 14:54:52 BELT WORKER CPT-JQ6049R (4013F) Statin therapy prescribed or cur rently being taken 14:07:28 BELT WORKER CPT-BE6793H (3066F) Documentation of treatment for n ephropathy 14:07:28 BELT WORKER CPT-96010 Venipuncture Draw Fee 17:47:23 CDT CPT-12309 4M Drug Screen cup test, Multi-panel, urine 2018 14:28:39 CDT CPT-75989 Venipuncture Draw Fee 15:19:00 CDT CPT-000 Give Appropriate Flu Vaccine 12:25:14 CDT 2 CPT-11885 First Vx - Ix admin via ID I M or jet injects without counseling by physician 13:08:59 CDT CPT-56816 Fluzone Quadrivalent Intramuscular Suspe nsion 0.5 ML 13:08:59 CDT CPT-68711 Venipuncture Draw Fee 12:04:12 CDT CPT-97933 Lipid - LAB USE ONLY 17:39:15 BELT WORKER 9 CPT-07879 HGBA1C - LAB USE ONLY 17:39:15 BELT WORKER CPT-12764 CMP - LAB USE ONLY 17:39:14 BELT WORKER CPT-48892 Venipuncture Draw Fee 17:39:14 BELT WORKER CPT-79147 First Vx - Ix admin via ID I M or jet injects without counseling by physician 16:55:17 BELT WORKER CPT-52400 Fluzone Quadrivalent Intramuscular Suspe nsion 0.5 ML 16:55:17 BELT WORKER CPT-10818 Renal Panel - LAB USE ONLY 17:39:20 CDT 201 10/31/07 CPT-67000 CBC - LAB USE ONLY 17:39:20 CDT CPT-86061 Venipuncture Draw Fee 17:39:20 CDT CPT-83532 Venipuncture Draw Fee 14:33:30 CDT CPT-70798 Renal Panel - LAB USE ONLY 14:33:30 CDT 201 10/31/07 CPT-59474 CBC - LAB USE ONLY 14:33:29 CDT CPT-74327 Venipuncture Draw Fee 14:50:21 BELT WORKER CPT-69871 Immunization Single Admin 17:35:35 CDT 2014 CPT-05027 Fluzone Quadrivalent preservative free ( >=3yrs.) 17:35:35 CDT CPT-69969 Venipuncture Draw Fee 12:10:27 BELT WORKER CPT-84669 Fluzone Quadrivalent Intramuscular Suspe nsion 0.5 ML 10:49:13 CDT CPT-78637 First Vx Component - Ix admi n via ID IM or jet inj without physician counseling 15:17:19 BELT WORKER CPT-77263 Pneumovax 23 15:17:19 BELT WORKER CPT-45523 Pneumovax 14:52:45 BELT WORKER CPT-94024 Venipuncture Draw Fee 14:06:30 BELT WORKER CPT-000 Give Appropriate Flu Vaccine 14:18:34 BELT WORKER 2 CPT-85984 Administration single or combination vac cine inc oral 14:46:00 BELT WORKER CPT-66051 Influenza split virus > age 3 14:46:00 BELT WORKER CPT-OV Office Visit 19:13:16 CDT CPT-79516 Zostavax 18:41:56 CDT CPT-24268 Administration single or combination vac cine inc oral 12:56:39 CDT CPT-82780 Zoster Vaccine (Zostavax) 12:56:39 CDT 2012 CPT-78583 Venipuncture Draw Fee 10:58:57 CDT CPT-12374 Sono pelvis non OB uterus ovaries cervix 17:45:04 CDT CPT-62902 Sono retroperitoneal complete kidneys an d bladder 17:14:36 CDT CPT-OV Office Visit 14:59:38 BELT WORKER CPT-J1070 Depo Testosterone 100 mg 14:50:13 CDT 03/05 CPT-68311 Abx/Therapy Injection 14:50:13 CDT CPT-69473 Administration single or combination vac cine inc oral 14:34:43 CDT CPT-40581 Influenza split virus > age 3 14:34:43 CDT CPT-J1070 Depo Testosterone 100 mg 17:37:13 CDT 01/11 CPT-61706 Abx/Therapy Injection 17:37:13 CDT CPT-31452 Venipuncture Draw Fee 16:30:13 CDT CPT-41614 Venipuncture Draw Fee 16:29:43 CDT CPT-J1070 Depo Testosterone 100 mg 14:45:38 CDT 01/11
[2019-10-27 11:33] LABS: TOTAL PROTEIN 7.4 GM/DL (6.4-8.2)
--- OUTSIDE RECORDS SUMMARY | 2019-10-27 11:33 | XMS REPORT | Clinical Summary ---
Author Author Admin, Elba Lance [facility] Address Unknown Phone Unavailable Allergies, Adverse Reactions, [...] ronary atherosclerosis of unspecified type of vessel, [place] or graft OTH NONSPC ABN FINDNG RAD&OTH [...] 1 tab every 6-8 hours PRN HYDROCODONE-ACETAMINOPHEN 96188680581 Active Baltazar silverman MD Active HUMALOG 100 UNIT/ML SUBCUTANEOUS SOLUTION Take 10 units with every meal INSULIN LISPRO 09460288778 Active Baltazar Childers MD Active NOVOLOG 100 UNIT/ML SUBCUTANEOUS SOLUTION 5 units with each meal. 2 INSULIN ASPART 91859465293 No Longer Active Fanny Hudson MA Activ e ONGLYZA 2.5 MG TABS TAKE 1 TABLET BY MOUTH EVERY DAY FOR DIABETES 2 SAXAGLIPTIN HCL 17484945408 Active Baltazar Childers MD Active GLIPIZIDE 10MG TABLETS TAKE 2 TABLETS BY MOUTH TWICE DAILY GLIPIZIDE 85668020904 Active Baltazar Childers MD Active TRUE METRIX B/G TEST STRIPS 25'S TEST BLOOD SUGAR TWICE DAILY 03/02 GLUCOSE BLOOD 74175346379 Active KENDALL Juarez Active LEVOTHYROXINE 0.112MG (112MCG) TABS TAKE 1 TABLET BY MOUTH EVERY DAY LEVOTHYROXINE SODIUM 08883412278 Active Baltazar Childers MD Active AMLODIPINE BESYLATE 5MG TABLETS TAKE 1 TABLET BY MOUTH EVERY DAY FOR HYPERTENSION AMLODIPINE BESYLATE 82049314850 Active Estefania Hudson MA Active LANTUS SOLOSTAR 100 UNIT/ML SUBCUTANEOUS SOLUTION PEN- INJECTOR 20 units am and 13 units at night INSULIN GLARGINE 99688155325 Active Baltazar Childers MD Active TRAMADOL HCL 50 MG ORAL TABLET 1 twice a day as needed for pain TRAMADOL HCL 26350083784 No Longer Active Baltazar Childers MD Active ROBAXIN 500 MG ORAL TABLET Take 1.5 (one and one half) tabs once daily METHOCARBAMOL 78979952088 Active Baltazar Childers MD Active TRUE METRIX AIR GLUCOSE METER DEVICE Use as directed BLOOD GLUCOSE MONITORING SUPPL 01980118437 Active Baltazar Childers MD Activ e NORTRIPTYLINE HCL 50 MG ORAL CAPSULE 1 twice a day for neuropathy 2 NORTRIPTYLINE HCL 91092788998 Active Baltazar Childers MD Acti ve ASPIRIN 81 MG TBEC Take one (1) tablet by mouth daily ASPIRIN 46965629773 Active Baltazar Childers MD Active GABAPENTIN 300 MG ORAL CAPSULE 1 three times a day 201 12/03/26 GABAPENTIN 83348046172 No Longer Active Baltazar Childers MD Activ e LISINOPRIL 20 MG ORAL TABLET 1 tablet by mouth daily at night 2016 LISINOPRIL 78296644113 Active Baltazar Childers MD Active ZITHROMAX Z-ISAIAS 250 MG ORAL TABLET Take two tablets to day and then 1 tablet daily for 4 days AZITHROMYCIN 51955649551 No Longer A ctive Baltazar Childers MD Active SUCRALFATE 1 GM ORAL TABLET 1 four times a day to coat the stoma ch SUCRALFATE 41764273813 No Longer Active Baltazar Childers MD Active PEN NEEDLES 31G X 6 MM use 1 daily INSULIN PEN NE EDLE 22334821190 Active KENDALL Juarez Active CELINA PARIKH 300 UNIT/ML SUBCUTANEOUS SOLUTION PEN- INJECTOR 10 units SC daily INSULIN GLARGINE 97457984017 No Longer Active Rola ARGUETA Active NAPROXEN SODIUM 220 MG ORAL TABLET 1 three times a day as needed NAPROXEN SODIUM 28916051528 No Longer Active Baltazar Childers MD Active ATORVASTATIN CALCIUM 20 MG ORAL TABLET Take 1 tab daily ATORVASTATIN CALCIUM 84377121991 Active Baltazar Childers MD A ctive FUROSEMIDE 40 MG ORAL TABLET Take one by mouth daily FUROSEMIDE 76813564417 Active Baltazar Childers MD Active LISINOPRIL 20 MG ORAL TABLET Take one by mouth daily at bedtime LISINOPRIL 70710650691 No Longer Active Baltazar Childers MD Active ONETOUCH ULTRA BLUE IN VITRO STRIP Test twice a day 07/11/11 GLUCOSE BLOOD 30691980565 No Longer Active Baltazar Childers MD Acti ve TRUEPLUS LANCETS 33G Test twice a day LANCETS 6567888 5365 Active KENDALL Juarez Active TRUEDRAW LANCING DEVICE Test twice a day LANCET DEVICES 12942098219 Active Baltazar Childers MD Active TRUETRACK BLOOD GLUCOSE w/Device KIT Test twice a day BLOOD GLUCOSE MONITORING SUPPL 71367751440 Active Baltazar Childers MD Activ e GABAPENTIN 300 MG ORAL CAPSULE 1 po qd x 2 days, then 1 po BID x 2 days, then 1 po TID GABAPENTIN 61917985786 No Longer Active Baltazar Childers MD Active NAPROXEN 500 MG ORAL TABLET 1 tablet by mouth twice daily NAPROXEN 44491129240 No Longer Active Baltazar Childers MD Active PROAIR HFA 108 (90 Base) MCG/ACT INHALATION AEROSOL SO LUTION 2 puffs four times a day as needed ALBUTEROL SULFATE 88501505508 Active Paul Childers MD Active DEPO-TESTOSTERONE 200 MG/ML INTRAMUSCULAR SOLUTION as directed TESTOSTERONE CYPIONATE 42037945959 No Longer Active Baltazar Childers MD Active LIPITOR 20 MG ORAL TABLET Take one by mouth daily in evening ATORVASTATIN CALCIUM 08291212643 No Longer Active Baltazar Childers MD Active CRESTOR 10 MG ORAL TABLET 1 by mouth every day ROSUVASTATIN CALCIUM 99821900698 No Longer Active Baltazar Childers MD Active PHENTERMINE HCL 37.5 MG ORAL TABLET Take one by mouth daily PHENTERMINE HCL 87238566811 No Longer Active Baltazar Childers MD Ac tive TIZANIDINE HCL 4 MG ORAL TABLET 1 daily as needed for muscle spa sm TIZANIDINE HCL 28412578212 No Longer Active Dawna Salazar RN Active [id number] 50-325-40 MG ORAL TABLET 1 fo ur times a day as needed for heacache [id number] 58065424453 Active KENDALL Juarez Active SUMATRIPTAN SUCCINATE 100 MG ORAL TABLET 1 tablet by m outh at onset of migraine as needed SUMATRIPTAN SUCCINATE 83584442531 Active Fanny Hudson MA Active LORATADINE 10 MG ORAL TABLET Take one by mouth daily LORATADINE 52651455342 Active Fanny Hudson MA Active OMEPRAZOLE 20 MG ORAL CAPSULE DELAYED RELEASE Take one by mouth jostin ly OMEPRAZOLE 82146587144 Active Baltazar Childers MD Active HYDROXYZINE HCL 25 MG ORAL TABLET Take one by mouth daily HYDROXYZINE HCL 59066808141 Active Baltazar Childers MD Active ALPRAZOLAM 1 MG ORAL TABLET 1 tablet by mouth daily at [facility] for restless leg ALPRAZOLAM 82400952985 Active Fanny Hudson MA Active METFORMIN HCL 1000 MG ORAL TABLET Take one by mouth twice daily METFORMIN HCL 06685723870 Active Baltazar Childers MD Active TIZANIDINE HCL 4 MG ORAL TABLET 1 daily as needed for muscle spa sm TIZANIDINE HCL 4 MG ORAL TABLET 766077 TIZANIDINE HCL Inactive PHENTERMINE HCL 37.5 MG ORAL TABLET Take one by mouth daily PHENTERMINE HCL 37.5 MG ORAL TABLET 316531 PHENTERMINE HCL Inac tive CRESTOR 10 MG ORAL TABLET 1 by mouth every day CRESTOR 10 MG ORAL TABLET 840622 ROSUVASTATIN CALCIUM Inactive LIPITOR 20 MG ORAL TABLET Take one by mouth daily in evening LIPITOR 20 MG ORAL TABLET 791176 ATORVASTATIN CALCIUM Inactive DEPO-TESTOSTERONE 200 MG/ML INTRAMUSCULAR SOLUTION as directed DEPO-TESTOSTERONE 200 MG/ML INTRAMUSCULAR SOLUTION 3306533 RUFINO TOSTERONE CYPIONATE Inactive NAPROXEN 500 MG ORAL TABLET 1 tablet by mouth twice daily NAPROXEN 500 MG ORAL TABLET 685676 NAPROXEN Inactive GABAPENTIN 300 MG ORAL CAPSULE 1 po qd x 2 days, then 1 po BID x 2 days, then 1 po TID GABAPENTIN 300 MG ORAL CAPSULE 396582 GABAP ENTIN Inactive ONETOUCH ULTRA BLUE IN VITRO STRIP Test twice a day 07/11/11 ONETOUCH ULTRA BLUE IN VITRO STRIP GLUCOSE BLOOD Inact amie NAPROXEN SODIUM 220 MG ORAL TABLET 1 three times a day as needed NAPROXEN SODIUM 220 MG ORAL TABLET 04762701092 NAPROXEN SODI UM Inactive TOUJEO SOLOSTAR 300 UNIT/ML SUBCUTANEOUS SOLUTION PEN- INJECTOR 10 units SC daily TOUJEO SOLOSTAR 300 UNIT/ML SUBCUTANEOUS SOLUTION PEN-INJECTOR INSULIN GLARGINE Inactive SUCRALFATE 1 GM ORAL TABLET 1 four times a day to coat the stoma ch SUCRALFATE 1 GM ORAL TABLET 968003 SUCRALFATE Inac tive GABAPENTIN 300 MG ORAL CAPSULE 1 three times a day 201 12/03/26 GABAPENTIN 300 MG ORAL CAPSULE 365096 GABAPENTIN Inactive TRAMADOL HCL 50 MG ORAL TABLET 1 twice a day as needed for pain TRAMADOL HCL 50 MG ORAL TABLET 669943 TRAMADOL HCL I nactive ZITHROMAX Z-ISAIAS 250 MG ORAL TABLET Take two tablets to day and then 1 tablet daily for 4 days ZITHROMAX Z-ISAIAS 250 MG ORAL TAB LET 368784 AZITHROMYCIN Inactive Immunizations Vaccine Administration Date Value [...] Fluarix, Agriflu(>= 18 yo)) Fluzone (>3 yrs.) [[id number]] Influenza, seasonal, inject able Seasonal influenza vaccine, injectable, containing preservative, for > 3 years old (Afluria, FluLaval, Fluzone, Fluvirin, Fluarix, Agriflu(>= 18 yo)) Fluzone (>3 yrs.) [[id number]] Influenza, seasonal, inject able Vital Signs Date [...] - Chem istry sodium, serum 136 mmol/L 825-959 4267/06/04 potassium, serum 4.9 mmol/L 3.5-5.2 chloride, serum 97 mmol/L 98-107 carbon dioxide, venous blood 35.3 mmol/L 21.0-32 .0 blood glucose 239 mg/dL 65-95 calcium, serum 10.6 mg/dL 8.5-10.1 urea nitrogen, blood 31 mg/dL 7-18 creatinine, serum 2.33 mg/dL 0.60-1.30 Estimated Glomerular Filtration Rate (calc) 23 (?) mL/min/1.73m2 = OR > 60 mL/min sodium, serum 141 mmol/L 252-438 0158/07/09 potassium, serum 4.9 mmol/L 3.5-5.2 chloride, serum [...] C - Chemistry sodium, serum 137 mmol/L 798-648 3567/10/17 potassium, serum 4.9 mmol/L 3.5-5.2 chloride, serum [...] Ordered Encounters Code Encounter Date Provider Facility CPT-00154 [id number] Vst-Est Level IV 14:22:53 CLIENT COORDINATOR Charlie Childers MD [facility] CPT-65271 [id number] Vst-Est Level IV 15:48:51 CLIENT COORDINATOR Charlie Childers MD [facility] CPT-50886 70719-Kru Vst-Est Level V 14:28:39 CDT Aneudy Childers MD [facility] CPT-38503 [id number] Vst-Est Level IV 15:03:32 CDT Charlie Childers MD [facility] CPT-45829 81118-Nno Vst-Est Level III 15:51:57 CDT Baltazar Childers MD [facility] CPT-78358 55733-Avh Vst-Est Level IV 15:14:58 CDT Charlie Childres MD [facility] CPT-31288 24024-Ylt Vst-Est Level IV 15:12:52 CLIENT COORDINATOR Charlie Childers MD [facility] CPT-01664 92036-Fcy Vst-Est Level IV 15:30:55 CLIENT COORDINATOR Charlie Childers MD [facility] CPT-25073 93540-Ibt Vst-Est Level IV 13:49:06 C DT Ann Martinez [facility] CPT-31272 Level 4 Est. Patient 17:26:08 [facility] 53898-Mwy Vst-Est Level V 14:26:27 CDT Aneudy Childers MD [facility] CPT-45117 Level 4 Est. Patient 17:05:37 CDT Baltazar Childers MD [facility] CPT-97358 Level 4 Est. Patient 16:21:19 CLIENT COORDINATOR Baltazar Childers MD [facility] CPT-67641 Level 4 Est. Patient 12:25:11 CDT Baltazar Childers MD [facility] CPT-06283 Level 4 Est. Patient 14:22:31 CDT Baltazar Childers MD [facility] CPT-61672 Level 4 Est. Patient 15:44:38 CDT Shonna Parker APRN [facility] CPT-43488 Level 4 Est. Patient 11:34:17 CDT Baltazar Childers MD [facility] CPT-03527 Level 3 Est. Patient 16:40:40 CDT Baltazar Childers MD [facility] CPT-06722 Level 4 Est. Patient 10:41:24 CDT Baltazar Childers MD [facility] CPT-54965 Level 4 Est. Patient 16:01:48 CDT Baltazar Childers MD [facility] CPT-44845 Level 4 Est. Patient 16:54:07 CLIENT COORDINATOR Baltazar Childers MD [facility] CPT-46447 Level 4 Est. Patient 15:42:12 CDT Baltazar Childers MD [facility] CPT-52555 Level 4 Est. Patient 11:29:55 CDT Baltazar Childers MD [facility] CPT-47082 Level 4 Est. Patient 14:15:19 CDT Baltazar Childers MD [facility] CPT-54222 Level 4 Est. Patient 12:20:13 CDT Baltazar Childers MD [facility] CPT-49205 Level 4 Est. Patient 14:52:45 CLIENT COORDINATOR Baltazar Childers MD [facility] CPT-78818 Level 4 Est. Patient 14:18:34 CLIENT COORDINATOR Baltazar Childers MD [facility] CPT-80309 Level 4 Est. Patient 15:18:29 CDT Baltazar Childers MD [facility] CPT-48518 Level 3 Est. Patient 12:45:34 CDT Baltazar Childers MD [facility] CPT-19339 Level 3 Est. Patient 10:10:11 CDT Baltazar Childers MD [facility] CPT-88644 Level 3 Est. Patient 14:07:50 CDT Baltazar Childers MD [facility] CPT-32311 Level 4 Est. Patient 12:26:10 CLIENT COORDINATOR Baltazar Childers MD [facility] CPT-06927 Level 4 Est. Patient 14:45:38 CDT Baltazar Childers MD [facility] CPT-22304 Level 4 New Patient 12:30:48 CDT Baltazar hinton MD [facility] Procedures Code Procedure Name Date Entry Date Standard Desc ription CPT-38947 Venipuncture Draw Fee 16:24:55 CLIENT COORDINATOR CPT-82840 93049 - Immun Admin 1 vac 14:54:52 CLIENT COORDINATOR 2019 CPT-89745 Fluzone Quadrivalent (Flu) 0.5 mL 10Pk S yringe IM 14:54:52 CLIENT COORDINATOR CPT-RC9113X (4013F) Statin therapy prescribed or cur rently being taken 14:07:28 CLIENT COORDINATOR CPT-HD6165G (3066F) Documentation of treatment for n ephropathy 14:07:28 CLIENT COORDINATOR CPT-00553 Venipuncture Draw Fee 17:47:23 CDT CPT-52766 4M Drug Screen cup test, Multi-panel, urine 2018 14:28:39 CDT CPT-21016 Venipuncture Draw Fee 15:19:00 CDT CPT-000 Give Appropriate Flu Vaccine 12:25:14 CDT 2 CPT-40920 First Vx - Ix admin via ID I M or jet injects without counseling by physician 13:08:59 CDT CPT-74220 Fluzone Quadrivalent Intramuscular Suspe nsion 0.5 ML 13:08:59 CDT CPT-08398 Venipuncture Draw Fee 12:04:12 CDT CPT-98261 Lipid - LAB USE ONLY 17:39:15 CLIENT COORDINATOR 9 CPT-45754 HGBA1C - LAB USE ONLY 17:39:15 CLIENT COORDINATOR CPT-91637 CMP - LAB USE ONLY 17:39:14 CLIENT COORDINATOR CPT-16862 Venipuncture Draw Fee 17:39:14 CLIENT COORDINATOR CPT-18992 First Vx - Ix admin via ID I M or jet injects without counseling by physician 16:55:17 CLIENT COORDINATOR CPT-34791 Fluzone Quadrivalent Intramuscular Suspe nsion 0.5 ML 16:55:17 CLIENT COORDINATOR CPT-23255 Renal Panel - LAB USE ONLY 17:39:20 CDT 201 10/31/07 CPT-01226 CBC - LAB USE ONLY 17:39:20 CDT CPT-65613 Venipuncture Draw Fee 17:39:20 CDT CPT-48263 Venipuncture Draw Fee 14:33:30 CDT CPT-42671 Renal Panel - LAB USE ONLY 14:33:30 CDT 201 10/31/07 CPT-97912 CBC - LAB USE ONLY 14:33:29 CDT CPT-96849 Venipuncture Draw Fee 14:50:21 CLIENT COORDINATOR CPT-23581 Immunization Single Admin 17:35:35 CDT 2014 CPT-11957 Fluzone Quadrivalent preservative free ( >=3yrs.) 17:35:35 CDT CPT-98669 Venipuncture Draw Fee 12:10:27 CLIENT COORDINATOR CPT-23373 Fluzone Quadrivalent Intramuscular Suspe nsion 0.5 ML 10:49:13 CDT CPT-68033 First Vx Component - Ix admi n via ID IM or jet inj without physician counseling 15:17:19 CLIENT COORDINATOR CPT-51892 Pneumovax 23 15:17:19 CLIENT COORDINATOR CPT-10806 Pneumovax 14:52:45 CLIENT COORDINATOR CPT-68055 Venipuncture Draw Fee 14:06:30 CLIENT COORDINATOR CPT-000 Give Appropriate Flu Vaccine 14:18:34 CLIENT COORDINATOR 2 CPT-51772 Administration single or combination vac cine inc oral 14:46:00 CLIENT COORDINATOR CPT-64013 Influenza split virus > age 3 14:46:00 CLIENT COORDINATOR CPT-OV Office Visit 19:13:16 CDT CPT-92882 Zostavax 18:41:56 CDT CPT-67179 Administration single or combination vac cine inc oral 12:56:39 CDT CPT-48108 Zoster Vaccine (Zostavax) 12:56:39 CDT 2012 CPT-29484 Venipuncture Draw Fee 10:58:57 CDT CPT-26273 Sono pelvis non OB uterus ovaries cervix 17:45:04 CDT CPT-78427 Sono retroperitoneal complete kidneys an d bladder 17:14:36 CDT CPT-OV Office Visit 14:59:38 CLIENT COORDINATOR CPT-J1070 Depo Testosterone 100 mg 14:50:13 CDT 03/05 CPT-70446 Abx/Therapy Injection 14:50:13 CDT CPT-07456 Administration single or combination vac cine inc oral 14:34:43 CDT CPT-87834 Influenza split virus > age 3 14:34:43 CDT CPT-J1070 Depo Testosterone 100 mg 17:37:13 CDT 01/11 CPT-17908 Abx/Therapy Injection 17:37:13 CDT CPT-13468 Venipuncture Draw Fee 16:30:13 CDT CPT-70618 Venipuncture Draw Fee 16:29:43 CDT CPT-J1070 Depo Testosterone 100 mg 14:45:38 CDT 01/11
--- OUTSIDE RECORDS SUMMARY | 2019-10-27 11:33 | XMS REPORT | Clinical Summary ---
Author Author Admin, Elba Lance [facility] Address Unknown Phone Unavailable Allergies, Adverse Reactions, [...] Morbid obesity due to excess calories 278.01 [facility] t Baltazar Childers MD Morbid obesity Obesity Class II (BMI 35-39.9) 278.01 Refinement 10/26 Baltazar Childers MD Morbid obesity Morbid obesity due to excess calories 278.01 [facility] t Baltazar Childers MD Morbid obesity Obesity Class II (BMI 35-39.9) 278.01 Refinement 01/19 Baltazar Childers MD Morbid obesity Morbid obesity due to excess calories 278.01 [facility] t Baltazar Childers MD Morbid obesity [...] ronary atherosclerosis of unspecified type of vessel, standing rock or graft OTH NONSPC ABN FINDNG RAD&OTH [...] sleep apnea Influenza Vaccination for Prophylaxis V04.81 Active Baltazar Childers MD Need for prophylactic vaccin ation and inoculation against influenza COLON POLYPS ICD-211.3 Inactive Lolis Thomas JOSE N Pharyngitis ICD-462 Inactive Baltazar Childers MD Medication List Medication Instructions Start Date Stop Date Generic Name NDC Status Provider Patient Instruction HYDROCODONE-ACETAMINOPHEN 7.5-325 MG ORAL TABLET Take 1 tab every 6-8 hours PRN HYDROCODONE-ACETAMINOPHEN 76168978609 Active Baltazar silverman MD Active HUMALOG 100 UNIT/ML SUBCUTANEOUS SOLUTION Take 10 units with every meal INSULIN LISPRO 93251823879 Active Baltazar Childers MD Active NOVOLOG 100 UNIT/ML SUBCUTANEOUS SOLUTION 5 units with each meal. 2 INSULIN ASPART 05637460979 No Longer Active Fanny Hudsno MA Activ e ONGLYZA 2.5 MG TABS TAKE 1 TABLET BY MOUTH EVERY DAY FOR DIABETES 2 SAXAGLIPTIN HCL 38189046972 Active Baltazar Childers MD Active GLIPIZIDE 10MG TABLETS TAKE 2 TABLETS BY MOUTH TWICE DAILY GLIPIZIDE 02741133236 Active Baltazar Childers MD Active TRUE METRIX B/G TEST STRIPS 25'S TEST BLOOD SUGAR TWICE DAILY 03/02 GLUCOSE BLOOD 20763372681 Active KENDALL Juarez Active LEVOTHYROXINE 0.112MG (112MCG) TABS TAKE 1 TABLET BY MOUTH EVERY DAY LEVOTHYROXINE SODIUM 88725254281 Active Baltazar Childers MD Active AMLODIPINE BESYLATE 5MG TABLETS TAKE 1 TABLET BY MOUTH EVERY DAY FOR HYPERTENSION AMLODIPINE BESYLATE 00219007966 Active Estefania Hudson MA Active LANTUS SOLOSTAR 100 UNIT/ML SUBCUTANEOUS SOLUTION PEN- INJECTOR 20 units am and 13 units at night INSULIN GLARGINE 69753558756 Active Baltazar Childers MD Active TRAMADOL HCL 50 MG ORAL TABLET 1 twice a day as needed for pain TRAMADOL HCL 24653775337 No Longer Active Baltazar Childers MD Active ROBAXIN 500 MG ORAL TABLET Take 1.5 (one and one half) tabs once daily METHOCARBAMOL 53543064913 Active Baltazar Childers MD Active TRUE METRIX AIR GLUCOSE METER DEVICE Use as directed BLOOD GLUCOSE MONITORING SUPPL 94502292965 Active Baltazar Childers MD Activ e NORTRIPTYLINE HCL 50 MG ORAL CAPSULE 1 twice a day for neuropathy 2 NORTRIPTYLINE HCL 83145081984 Active Baltazar Childers MD Acti ve ASPIRIN 81 MG TBEC Take one (1) tablet by mouth daily ASPIRIN 65425313094 Active Baltazar Childers MD Active GABAPENTIN 300 MG ORAL CAPSULE 1 three times a day 201 12/03/26 GABAPENTIN 31958349305 No Longer Active Baltazar Childers MD Activ e LISINOPRIL 20 MG ORAL TABLET 1 tablet by mouth daily at night 2016 LISINOPRIL 81964551884 Active Baltazar Childers MD Active ZITHROMAX Z-ISAIAS 250 MG ORAL TABLET Take two tablets to day and then 1 tablet daily for 4 days AZITHROMYCIN 35812122634 No Longer A ctive Baltazar Childers MD Active SUCRALFATE 1 GM ORAL TABLET 1 four times a day to coat the stoma ch SUCRALFATE 93067401557 No Longer Active Baltazar Childers MD Active PEN NEEDLES 31G X 6 MM use 1 daily INSULIN PEN NE EDLE 32165146893 Active KENDALL Juarez Active CELINA CURRYAR 300 UNIT/ML SUBCUTANEOUS SOLUTION PEN- INJECTOR 10 units SC daily INSULIN GLARGINE 92842884466 No Longer Active Rola ARGUETA Active NAPROXEN SODIUM 220 MG ORAL TABLET 1 three times a day as needed NAPROXEN SODIUM 11355217385 No Longer Active Baltazar Childers MD Active ATORVASTATIN CALCIUM 20 MG ORAL TABLET Take 1 tab daily ATORVASTATIN CALCIUM 13853481362 Active Baltazar Childers MD A ctive FUROSEMIDE 40 MG ORAL TABLET Take one by mouth daily FUROSEMIDE 33703519691 Active Baltazar Childers MD Active LISINOPRIL 20 MG ORAL TABLET Take one by mouth daily at bedtime LISINOPRIL 63163322020 No Longer Active Baltazar Childers MD Active ONETOUCH ULTRA BLUE IN VITRO STRIP Test twice a day 07/11/11 GLUCOSE BLOOD 90931965338 No Longer Active Baltazar Childers MD Acti ve TRUEPLUS LANCETS 33G Test twice a day LANCETS 5442595 6498 Active KENDALL Juarez Active TRUEDRAW LANCING DEVICE Test twice a day LANCET DEVICES 99975538677 Active Baltazar Childers MD Active TRUETRACK BLOOD GLUCOSE w/Device KIT Test twice a day BLOOD GLUCOSE MONITORING SUPPL 21602328921 Active Baltazar Childers MD Activ e GABAPENTIN 300 MG ORAL CAPSULE 1 po qd x 2 days, then 1 po BID x 2 days, then 1 po TID GABAPENTIN 96098625399 No Longer Active Baltazar Childers MD Active NAPROXEN 500 MG ORAL TABLET 1 tablet by mouth twice daily NAPROXEN 15188672209 No Longer Active Baltazar Childers MD Active PROAIR HFA 108 (90 Base) MCG/ACT INHALATION AEROSOL SO LUTION 2 puffs four times a day as needed ALBUTEROL SULFATE 69310392571 Active Paul Childers MD Active DEPO-TESTOSTERONE 200 MG/ML INTRAMUSCULAR SOLUTION as directed TESTOSTERONE CYPIONATE 15474420113 No Longer Active Baltazar Childers MD Active LIPITOR 20 MG ORAL TABLET Take one by mouth daily in evening ATORVASTATIN CALCIUM 97254588884 No Longer Active Baltazar Childers MD Active CRESTOR 10 MG ORAL TABLET 1 by mouth every day ROSUVASTATIN CALCIUM 66282896587 No Longer Active Baltazar Childers MD Active PHENTERMINE HCL 37.5 MG ORAL TABLET Take one by mouth daily PHENTERMINE HCL 71377773418 No Longer Active Baltazar Childers MD Ac tive TIZANIDINE HCL 4 MG ORAL TABLET 1 daily as needed for muscle spa sm TIZANIDINE HCL 34213651279 No Longer Active Dawna Salazar RN Active [id number] 50-325-40 MG ORAL TABLET 1 fo ur times a day as needed for heacache [id number]-[id number] 69111980756 Active Beth Carr, A Active SUMATRIPTAN SUCCINATE 100 MG ORAL TABLET 1 tablet by m outh at onset of migraine as needed SUMATRIPTAN SUCCINATE 98101609710 Active Fanny Hudson MA Active LORATADINE 10 MG ORAL TABLET Take one by mouth daily LORATADINE 31699451360 Active Fanny Hudson MA Active OMEPRAZOLE 20 MG ORAL CAPSULE DELAYED RELEASE Take one by mouth jostin ly OMEPRAZOLE 60771935209 Active Baltazar Childers MD Active HYDROXYZINE HCL 25 MG ORAL TABLET Take one by mouth daily HYDROXYZINE HCL 51230204012 Active Baltazar Childers MD Active ALPRAZOLAM 1 MG ORAL TABLET 1 tablet by mouth daily at [facility] ALPRAZOLAM 32839877104 Active Fanny Hudson MA Active METFORMIN HCL 1000 MG ORAL TABLET Take one by mouth twice daily METFORMIN HCL 09528218453 Active Baltazar Childers MD Active TIZANIDINE HCL 4 MG ORAL TABLET 1 daily as needed for muscle spa TIZANIDINE HCL 4 MG ORAL TABLET 142717 TIZANIDINE HCL Inactive PHENTERMINE HCL 37.5 MG ORAL TABLET Take one by mouth daily PHENTERMINE HCL 37.5 MG ORAL TABLET 871056 PHENTERMINE HCL Inac tive CRESTOR 10 MG ORAL TABLET 1 by mouth every day CRESTOR 10 MG ORAL TABLET 252833 ROSUVASTATIN CALCIUM Inactive LIPITOR 20 MG ORAL TABLET Take one by mouth daily in evening LIPITOR 20 MG ORAL TABLET 553559 ATORVASTATIN CALCIUM Inactive DEPO-TESTOSTERONE 200 MG/ML INTRAMUSCULAR SOLUTION as directed DEPO-TESTOSTERONE 200 MG/ML INTRAMUSCULAR SOLUTION 8286107 RUFINO TOSTERONE CYPIONATE Inactive NAPROXEN 500 MG ORAL TABLET 1 tablet by mouth twice daily NAPROXEN 500 MG ORAL TABLET 459735 NAPROXEN Inactive GABAPENTIN 300 MG ORAL CAPSULE 1 po qd x 2 days, then 1 po BID x 2 days, then 1 po TID GABAPENTIN 300 MG ORAL CAPSULE 254232 GABAP ENTIN Inactive ONETOUCH ULTRA BLUE IN VITRO STRIP Test twice a day 20 07/11/11 ONETOUCH ULTRA BLUE IN VITRO STRIP GLUCOSE BLOOD Inact amie NAPROXEN SODIUM 220 MG ORAL TABLET 1 three times a day as needed NAPROXEN SODIUM 220 MG ORAL TABLET 27766434711 NAPROXEN SODI UM Inactive TOUJEO SOLOSTAR 300 UNIT/ML SUBCUTANEOUS SOLUTION PEN- INJECTOR 10 units SC daily TOUJEO SOLOSTAR 300 UNIT/ML SUBCUTANEOUS SOLUTION PEN-INJECTOR INSULIN GLARGINE Inactive SUCRALFATE 1 GM ORAL TABLET 1 four times a day to coat the stoma ch SUCRALFATE 1 GM ORAL TABLET 066057 SUCRALFATE Inac tive GABAPENTIN 300 MG ORAL CAPSULE 1 three times a day 201 12/03/26 GABAPENTIN 300 MG ORAL CAPSULE 890623 GABAPENTIN Inactive TRAMADOL HCL 50 MG ORAL TABLET 1 twice a day as needed for pain TRAMADOL HCL 50 MG ORAL TABLET 915946 TRAMADOL HCL I nactive ZITHROMAX Z-ISAIAS 250 MG ORAL TABLET Take two tablets to day and then 1 tablet daily for 4 days ZITHROMAX Z-ISAIAS 250 MG ORAL TAB LET 644898 AZITHROMYCIN Inactive Immunizations Vaccine Administration Date Value [...] Fluarix, Agriflu(>= 18 yo)) Fluzone (>3 yrs.) [[id number]] Influenza, seasonal, inject able Seasonal influenza vaccine, injectable, containing preservative, for > 3 years old (Afluria, FluLaval, Fluzone, Fluvirin, Fluarix, Agriflu(>= 18 yo)) Fluzone (>3 yrs.) [[id number]] Influenza, seasonal, inject able Vital Signs Date [...] - Chem istry sodium, serum 136 mmol/L 683-340 1259/06/04 potassium, serum 4.9 mmol/L 3.5-5.2 chloride, serum 97 mmol/L 98-107 carbon dioxide, venous blood 35.3 mmol/L 21.0-32 .0 blood glucose 239 mg/dL 65-95 calcium, serum 10.6 mg/dL 8.5-10.1 urea nitrogen, blood 31 mg/dL 7-18 creatinine, serum 2.33 mg/dL 0.60-1.30 Estimated Glomerular Filtration Rate (calc) 23 (?) mL/min/1.73m2 = OR > 60 mL/min sodium, serum 141 mmol/L 276-411 7195/07/09 potassium, serum 4.9 mmol/L 3.5-5.2 chloride, serum [...] C - Chemistry sodium, serum 137 mmol/L 463-638 6690/10/17 potassium, serum 4.9 mmol/L 3.5-5.2 chloride, serum [...] % of total hemoglobin 8.0 % 4.3-6.0 Office Visit: pap., tumor - Toxicology drug screen, urine, qualitative Ordered Encounters Code Encounter Date Provider Facility CPT-24205 [id number] Vst-Est Level IV 14:22:53 PROGRAM ARRANGER Charlie Childers MD [facility] CPT-20895 05362-Yan Vst-Est Level IV 15:48:51 PROGRAM ARRANGER Charlie Childers MD [facility] CPT-34161 05154-Oou Vst-Est Level V 14:28:39 CDT Aneudy Childers MD [facility] CPT-82142 85601-Zxn Vst-Est Level IV 15:03:32 CDT Charlie Childers MD [facility] CPT-98811 51689-Bmp Vst-Est Level III 15:51:57 CDT Baltazar Childers MD [facility] CPT-64076 59150-Axz Vst-Est Level IV 15:14:58 CDT Charlie Childers MD [facility] CPT-27612 01349-Gdm Vst-Est Level IV 15:12:52 PROGRAM ARRANGER Charlie Childers MD [facility] CPT-85019 20679-Sud Vst-Est Level IV 15:30:55 PROGRAM ARRANGER Charlie Childers MD [facility] CPT-34121 33077-Gro Vst-Est Level IV 13:49:06 C DT Ann Martinez [facility] CPT-07604 Level 4 Est. Patient 17:26:08 CDT Ann trujillo [facility] CPT-54178 51044-Hvf Vst-Est Level V 14:26:27 CDT Aneudy Childers MD [facility] CPT-68117 Level 4 Est. Patient 17:05:37 CDT Baltazar Childers MD [facility] CPT-23356 Level 4 Est. Patient 16:21:19 PROGRAM ARRANGER Baltazar Childers MD [facility] CPT-51712 Level 4 Est. Patient 12:25:11 CDT Baltazar Childers MD [facility] CPT-76515 Level 4 Est. Patient 14:22:31 CDT Baltazar Childers MD [facility] CPT-82907 Level 4 Est. Patient 15:44:38 CDT Shonna Parker APRN [facility] CPT-14334 Level 4 Est. Patient 11:34:17 CDT Baltazar Childers MD [facility] CPT-16627 Level 3 Est. Patient 16:40:40 CDT Baltazar Childers MD [facility] CPT-76073 Level 4 Est. Patient 10:41:24 CDT Baltazar Childers MD [facility] CPT-86625 Level 4 Est. Patient 16:01:48 CDT Baltazar Childers MD [facility] CPT-71143 Level 4 Est. Patient 16:54:07 PROGRAM ARRANGER Baltazar Childers MD [facility] CPT-54161 Level 4 Est. Patient 15:42:12 CDT Baltazar Childers MD [facility] CPT-99479 Level 4 Est. Patient 11:29:55 CDT Baltazar Childers MD [facility] CPT-10515 Level 4 Est. Patient 14:15:19 CDT Baltazar Childers MD [facility] CPT-57052 Level 4 Est. Patient 12:20:13 CDT Baltazar Childers MD [facility] CPT-91741 Level 4 Est. Patient 14:52:45 PROGRAM ARRANGER Baltazar Childers MD [facility] CPT-48820 Level 4 Est. Patient 14:18:34 PROGRAM ARRANGER Baltazar Childers MD [facility] CPT-67532 Level 4 Est. Patient 15:18:29 CDT Baltazar Childers MD [facility] CPT-10555 Level 3 Est. Patient 12:45:34 CDT Baltazar Childers MD [facility] CPT-28753 Level 3 Est. Patient 10:10:11 CDT Baltazar Childers MD [facility] CPT-14743 Level 3 Est. Patient 14:07:50 CDT Baltazar Childers MD [facility] CPT-11776 Level 4 Est. Patient 12:26:10 PROGRAM ARRANGER Baltazar Childers MD [facility] CPT-51614 Level 4 Est. Patient 14:45:38 CDT Baltazar Childers MD [facility] CPT-84400 Level 4 New Patient 12:30:48 CDT Baltazar hinton MD [facility] Procedures Code Procedure Name Date Entry Date Standard Desc ription CPT-30332 68285 - Immun Admin 1 vac 14:54:52 PROGRAM ARRANGER 2019 CPT-15881 Fluzone Quadrivalent (Flu) 0.5 mL 10Pk S yringe IM 14:54:52 PROGRAM ARRANGER CPT-GM8978F (4013F) Statin therapy prescribed or cur rently being taken 14:07:28 PROGRAM ARRANGER CPT-NV8301K (3066F) Documentation of treatment for n ephropathy 14:07:28 PROGRAM ARRANGER CPT-53555 Venipuncture Draw Fee 17:47:23 CDT CPT-28890 4M Drug Screen cup test, Multi-panel, urine 2018 14:28:39 CDT CPT-60977 Venipuncture Draw Fee 15:19:00 CDT CPT-000 Give Appropriate Flu Vaccine 12:25:14 CDT 2 CPT-71993 First Vx - Ix admin via ID I M or jet injects without counseling by physician 13:08:59 CDT CPT-88986 Fluzone Quadrivalent Intramuscular Suspe nsion 0.5 ML 13:08:59 CDT CPT-25752 Venipuncture Draw Fee 12:04:12 CDT CPT-62421 Lipid - LAB USE ONLY 17:39:15 PROGRAM ARRANGER 9 CPT-80207 HGBA1C - LAB USE ONLY 17:39:15 PROGRAM ARRANGER CPT-87669 CMP - LAB USE ONLY 17:39:14 PROGRAM ARRANGER CPT-57820 Venipuncture Draw Fee 17:39:14 PROGRAM ARRANGER CPT-20088 First Vx - Ix admin via ID I M or jet injects without counseling by physician 16:55:17 PROGRAM ARRANGER CPT-05977 Fluzone Quadrivalent Intramuscular Suspe nsion 0.5 ML 16:55:17 PROGRAM ARRANGER CPT-61660 Renal Panel - LAB USE ONLY 17:39:20 CDT 201 10/31/07 CPT-37613 CBC - LAB USE ONLY 17:39:20 CDT CPT-96100 Venipuncture Draw Fee 17:39:20 CDT CPT-21276 Venipuncture Draw Fee 14:33:30 CDT CPT-76925 Renal Panel - LAB USE ONLY 14:33:30 CDT 201 10/31/07 CPT-59581 CBC - LAB USE ONLY 14:33:29 CDT CPT-89752 Venipuncture Draw Fee 14:50:21 PROGRAM ARRANGER CPT-81217 Immunization Single Admin 17:35:35 CDT 2014 CPT-69423 Fluzone Quadrivalent preservative free ( >=3yrs.) 17:35:35 CDT CPT-31485 Venipuncture Draw Fee 12:10:27 PROGRAM ARRANGER CPT-33724 Fluzone Quadrivalent Intramuscular Suspe nsion 0.5 ML 10:49:13 CDT CPT-98461 First Vx Component - Ix admi n via ID IM or jet inj without physician counseling 15:17:19 PROGRAM ARRANGER CPT-38478 Pneumovax 23 15:17:19 PROGRAM ARRANGER CPT-89904 Pneumovax 14:52:45 PROGRAM ARRANGER CPT-91798 Venipuncture Draw Fee 14:06:30 PROGRAM ARRANGER CPT-000 Give Appropriate Flu Vaccine 14:18:34 PROGRAM ARRANGER 2 CPT-85690 Administration single or combination vac cine inc oral 14:46:00 PROGRAM ARRANGER CPT-47295 Influenza split virus > age 3 14:46:00 PROGRAM ARRANGER CPT-OV Office Visit 19:13:16 CDT CPT-75322 Zostavax 18:41:56 CDT CPT-76011 Administration single or combination vac cine inc oral 12:56:39 CDT CPT-78229 Zoster Vaccine (Zostavax) 12:56:39 CDT 2012 CPT-57228 Venipuncture Draw Fee 10:58:57 CDT CPT-80532 Sono pelvis non OB uterus ovaries cervix 17:45:04 CDT CPT-27228 Sono retroperitoneal complete kidneys an d bladder 17:14:36 CDT CPT-OV Office Visit 14:59:38 PROGRAM ARRANGER CPT-J1070 Depo Testosterone 100 mg 14:50:13 CDT 03/05 CPT-73957 Abx/Therapy Injection 14:50:13 CDT CPT-25570 Administration single or combination vac cine inc oral 14:34:43 CDT CPT-06892 Influenza split virus > age 3 14:34:43 CDT CPT-J1070 Depo Testosterone 100 mg 17:37:13 CDT 01/11 CPT-06493 Abx/Therapy Injection 17:37:13 CDT CPT-03471 Venipuncture Draw Fee 16:30:13 CDT CPT-80455 Venipuncture Draw Fee 16:29:43 CDT CPT-J1070 Depo Testosterone 100 mg 14:45:38 CDT 01/11
--- OUTSIDE RECORDS SUMMARY | 2019-10-27 11:33 | XMS REPORT | Clinical Summary ---
Author Author Admin, Elba Lance [employer] Address Unknown Phone Unavailable Allergies, Adverse Reactions, [...] Morbid obesity due to excess calories 278.01 [facility] t Baltazar Childers MD Morbid obesity Obesity Class II (BMI 35-39.9) 278.01 Refinement 10/26 Baltazar Childers MD Morbid obesity Morbid obesity due to excess calories 278.01 [facility] t Baltazar Childers MD Morbid obesity Obesity Class II (BMI 35-39.9) 278.01 Refinement 01/19 Baltazar Childers MD Morbid obesity Morbid obesity due to excess calories 278.01 [facility] t Baltazar Childers MD Morbid obesity [...] atherosclerosis of unspecified type of vessel, red cliff or graft OTH NONSPC ABN FINDNG RAD&OTH [...] apnea Influenza Vaccination for Prophylaxis V04.81 Active Blatazar Childers MD Need for prophylactic vaccin ation and inoculation against influenza COLON POLYPS ICD-211.3 Inactive Lolis Thomas JOSE N Pharyngitis ICD-462 Inactive Baltazar Childers MD Medication List Medication Instructions Start Date Stop Date Generic Name NDC Status Provider Patient Instruction HYDROCODONE-ACETAMINOPHEN 7.5-325 MG ORAL TABLET Take 1 tab every 6-8 hours PRN HYDROCODONE-ACETAMINOPHEN 76721481518 Active Baltazar silverman MD Active HUMALOG 100 UNIT/ML SUBCUTANEOUS SOLUTION Take 10 units with every meal INSULIN LISPRO 96794884012 Active Baltazar Childers MD Active NOVOLOG 100 UNIT/ML SUBCUTANEOUS SOLUTION 5 units with each meal. 2 INSULIN ASPART 95962655798 No Longer Active Fanny Hudson MA Activ e ONGLYZA 2.5 MG TABS TAKE 1 TABLET BY MOUTH EVERY DAY FOR DIABETES 2 SAXAGLIPTIN HCL 71587134300 Active Baltazar Childers MD Active GLIPIZIDE 10MG TABLETS TAKE 2 TABLETS BY MOUTH TWICE DAILY GLIPIZIDE 45701240848 Active Baltazar Childers MD Active TRUE METRIX B/G TEST STRIPS 25'S TEST BLOOD SUGAR TWICE DAILY 03/02 GLUCOSE BLOOD 31026325532 Active KENDALL Juarez Active LEVOTHYROXINE 0.112MG (112MCG) TABS TAKE 1 TABLET BY MOUTH EVERY DAY LEVOTHYROXINE SODIUM 11473913311 Active Baltazar Childers MD Active AMLODIPINE BESYLATE 5MG TABLETS TAKE 1 TABLET BY MOUTH EVERY DAY FOR HYPERTENSION AMLODIPINE BESYLATE 07121969256 Active Estefania Hudson MA Active LANTUS SOLOSTAR 100 UNIT/ML SUBCUTANEOUS SOLUTION PEN- INJECTOR 20 units am and 13 units at night INSULIN GLARGINE 58986618362 Active Baltazar Childers MD Active TRAMADOL HCL 50 MG ORAL TABLET 1 twice a day as needed for pain TRAMADOL HCL 46584893886 No Longer Active Baltazar Childers MD Active ROBAXIN 500 MG ORAL TABLET Take 1.5 (one and one half) tabs once daily METHOCARBAMOL 96247959960 Active Baltazar Childers MD Active TRUE METRIX AIR GLUCOSE METER DEVICE Use as directed BLOOD GLUCOSE MONITORING SUPPL 88871410784 Active Baltazar Childers MD Activ e NORTRIPTYLINE HCL 50 MG ORAL CAPSULE 1 twice a day for neuropathy 2 NORTRIPTYLINE HCL 25935014260 Active Baltazar Childers MD Acti ve ASPIRIN 81 MG TBEC Take one (1) tablet by mouth daily ASPIRIN 12836237296 Active Baltazar Childers MD Active GABAPENTIN 300 MG ORAL CAPSULE 1 three times a day 201 12/03/26 GABAPENTIN 06630059675 No Longer Active Baltazar Childers MD Activ e LISINOPRIL 20 MG ORAL TABLET 1 tablet by mouth daily at night 2016 LISINOPRIL 21322273875 Active Baltazar Childers MD Active ZITHROMAX Z-ISAIAS 250 MG ORAL TABLET Take two tablets to day and then 1 tablet daily for 4 days AZITHROMYCIN 87160926678 No Longer A ctive Baltazar Childers MD Active SUCRALFATE 1 GM ORAL TABLET 1 four times a day to coat the stoma ch SUCRALFATE 36952564796 No Longer Active Baltazar Childers MD Active PEN NEEDLES 31G X 6 MM use 1 daily INSULIN PEN NE EDLE 90198961106 Active KENDALL Juarez Active CELINA CURRYAR 300 UNIT/ML SUBCUTANEOUS SOLUTION PEN- INJECTOR 10 units SC daily INSULIN GLARGINE 65477591632 No Longer Active Rola ARGUETA Active NAPROXEN SODIUM 220 MG ORAL TABLET 1 three times a day as needed NAPROXEN SODIUM 30132437091 No Longer Active Baltazar Childers MD Active ATORVASTATIN CALCIUM 20 MG ORAL TABLET Take 1 tab daily ATORVASTATIN CALCIUM 91637355430 Active Baltazar Childers MD A ctive FUROSEMIDE 40 MG ORAL TABLET Take one by mouth daily FUROSEMIDE 75522898742 Active Baltazar Childers MD Active LISINOPRIL 20 MG ORAL TABLET Take one by mouth daily at bedtime LISINOPRIL 24860676604 No Longer Active Baltazar Childers MD Active ONETOUCH ULTRA BLUE IN VITRO STRIP Test twice a day 07/11/11 GLUCOSE BLOOD 60938069424 No Longer Active Baltazar Childers MD Acti ve TRUEPLUS LANCETS 33G Test twice a day LANCETS 0089699 2846 Active KENDALL Juarez Active TRUEDRAW LANCING DEVICE Test twice a day LANCET DEVICES 39833528829 Active Baltazar Childers MD Active TRUETRACK BLOOD GLUCOSE w/Device KIT Test twice a day BLOOD GLUCOSE MONITORING SUPPL 29345929273 Active Baltazar Childers MD Activ e GABAPENTIN 300 MG ORAL CAPSULE 1 po qd x 2 days, then 1 po BID x 2 days, then 1 po TID GABAPENTIN 99881732473 No Longer Active Baltazar Childers MD Active NAPROXEN 500 MG ORAL TABLET 1 tablet by mouth twice daily NAPROXEN 38143131010 No Longer Active Baltazar Childers MD Active PROAIR HFA 108 (90 Base) MCG/ACT INHALATION AEROSOL SO LUTION 2 puffs four times a day as needed ALBUTEROL SULFATE 37378297901 Active Paul Childers MD Active DEPO-TESTOSTERONE 200 MG/ML INTRAMUSCULAR SOLUTION as directed TESTOSTERONE CYPIONATE 71286405853 No Longer Active Baltazar Childers MD Active LIPITOR 20 MG ORAL TABLET Take one by mouth daily in evening ATORVASTATIN CALCIUM 34879569700 No Longer Active Baltazar Childers MD Active CRESTOR 10 MG ORAL TABLET 1 by mouth every day ROSUVASTATIN CALCIUM 39810032623 No Longer Active Baltazar Childers MD Active PHENTERMINE HCL 37.5 MG ORAL TABLET Take one by mouth daily PHENTERMINE HCL 81619857754 No Longer Active Baltazar Childers MD Ac tive TIZANIDINE HCL 4 MG ORAL TABLET 1 daily as needed for muscle spa sm TIZANIDINE HCL 69201894359 No Longer Active Dawna Salazar RN Active [id number] 50-325-40 MG ORAL TABLET 1 fo ur times a day as needed for heacache [id number] 22966264498 Active Beth Carr, A Active SUMATRIPTAN SUCCINATE 100 MG ORAL TABLET 1 tablet by m outh at onset of migraine as needed SUMATRIPTAN SUCCINATE 81330574889 Active Fanny Hudson MA Active LORATADINE 10 MG ORAL TABLET Take one by mouth daily LORATADINE 34735351705 Active Fanny Hudson MA Active OMEPRAZOLE 20 MG ORAL CAPSULE DELAYED RELEASE Take one by mouth jostin ly OMEPRAZOLE 65856941258 Active Baltazar Childers MD Active HYDROXYZINE HCL 25 MG ORAL TABLET Take one by mouth daily HYDROXYZINE HCL 77742605690 Active Baltazar Childers MD Active ALPRAZOLAM 1 MG ORAL TABLET 1 tablet by mouth daily at [facility] ALPRAZOLAM 39344454497 Active Fanny Hudson MA Active METFORMIN HCL 1000 MG ORAL TABLET Take one by mouth twice daily METFORMIN HCL 29116592418 Active Baltazar Childers MD Active TIZANIDINE HCL 4 MG ORAL TABLET 1 daily as needed for muscle spa TIZANIDINE HCL 4 MG ORAL TABLET 980990 TIZANIDINE HCL Inactive PHENTERMINE HCL 37.5 MG ORAL TABLET Take one by mouth daily PHENTERMINE HCL 37.5 MG ORAL TABLET 139316 PHENTERMINE HCL Inac tive CRESTOR 10 MG ORAL TABLET 1 by mouth every day CRESTOR 10 MG ORAL TABLET 949513 ROSUVASTATIN CALCIUM Inactive LIPITOR 20 MG ORAL TABLET Take one by mouth daily in evening LIPITOR 20 MG ORAL TABLET 325146 ATORVASTATIN CALCIUM Inactive DEPO-TESTOSTERONE 200 MG/ML INTRAMUSCULAR SOLUTION as directed DEPO-TESTOSTERONE 200 MG/ML INTRAMUSCULAR SOLUTION 4459788 RUFINO TOSTERONE CYPIONATE Inactive NAPROXEN 500 MG ORAL TABLET 1 tablet by mouth twice daily NAPROXEN 500 MG ORAL TABLET 828853 NAPROXEN Inactive GABAPENTIN 300 MG ORAL CAPSULE 1 po qd x 2 days, then 1 po BID x 2 days, then 1 po TID GABAPENTIN 300 MG ORAL CAPSULE 480771 GABAP ENTIN Inactive ONETOUCH ULTRA BLUE IN VITRO STRIP Test twice a day 20 07/11/11 ONETOUCH ULTRA BLUE IN VITRO STRIP GLUCOSE BLOOD Inact amie NAPROXEN SODIUM 220 MG ORAL TABLET 1 three times a day as needed NAPROXEN SODIUM 220 MG ORAL TABLET 87875736672 NAPROXEN SODI UM Inactive TOUJEO SOLOSTAR 300 UNIT/ML SUBCUTANEOUS SOLUTION PEN- INJECTOR 10 units SC daily TOUJEO SOLOSTAR 300 UNIT/ML SUBCUTANEOUS SOLUTION PEN-INJECTOR INSULIN GLARGINE Inactive SUCRALFATE 1 GM ORAL TABLET 1 four times a day to coat the stoma ch SUCRALFATE 1 GM ORAL TABLET 518173 SUCRALFATE Inac tive GABAPENTIN 300 MG ORAL CAPSULE 1 three times a day 201 12/03/26 GABAPENTIN 300 MG ORAL CAPSULE 942434 GABAPENTIN Inactive TRAMADOL HCL 50 MG ORAL TABLET 1 twice a day as needed for pain TRAMADOL HCL 50 MG ORAL TABLET 811624 TRAMADOL HCL I nactive ZITHROMAX Z-ISAIAS 250 MG ORAL TABLET Take two tablets to day and then 1 tablet daily for 4 days ZITHROMAX Z-ISAIAS 250 MG ORAL TAB LET 696803 AZITHROMYCIN Inactive Immunizations Vaccine Administration Date Value [...] Fluarix, Agriflu(>= 18 yo)) Fluzone (>3 yrs.) [[id number]] Influenza, seasonal, inject able Seasonal influenza vaccine, injectable, containing preservative, for > 3 years old (Afluria, FluLaval, Fluzone, Fluvirin, Fluarix, Agriflu(>= 18 yo)) Fluzone (>3 yrs.) [[id number]] Influenza, seasonal, inject able Vital Signs Date [...] - Chem istry sodium, serum 136 mmol/L 800-410 7934/06/04 potassium, serum 4.9 mmol/L 3.5-5.2 chloride, serum 97 mmol/L 98-107 carbon dioxide, venous blood 35.3 mmol/L 21.0-32 .0 blood glucose 239 mg/dL 65-95 calcium, serum 10.6 mg/dL 8.5-10.1 urea nitrogen, blood 31 mg/dL 7-18 creatinine, serum 2.33 mg/dL 0.60-1.30 Estimated Glomerular Filtration Rate (calc) 23 (?) mL/min/1.73m2 = OR > 60 mL/min sodium, serum 141 mmol/L 131-485 8432/07/09 potassium, serum 4.9 mmol/L 3.5-5.2 chloride, serum [...] C - Chemistry sodium, serum 137 mmol/L 899-088 0739/10/17 potassium, serum 4.9 mmol/L 3.5-5.2 chloride, serum [...] Ordered Encounters Code Encounter Date Provider Facility CPT-44768 [id number] Vst-Est Level IV 14:22:53 [employer] TECHNICIAN Charlie Childers MD [facility] CPT-30211 [id number] Vst-Est Level IV 15:48:51 [employer] TECHNICIAN Charlie Childers MD [facility] CPT-94880 [id number] Vst-Est Level V 14:28:39 CDT Aneudy Childers MD [facility] CPT-43392 [id number] Vst-Est Level IV 15:03:32 CDT Charlie Childers MD [facility] CPT-94396 [id number] Vst-Est Level III 15:51:57 CDT Baltazar Childers MD [facility] CPT-99449 [id number] Vst-Est Level IV 15:14:58 CDT Charlie Childers MD [facility] CPT-87164 [id number] Vst-Est Level IV 15:12:52 [employer] TECHNICIAN Charlie Childers MD [facility] CPT-35454 [id number] Vst-Est Level IV 15:30:55 [employer] TECHNICIAN Charlie Childers MD [facility] CPT-73451 [id number] Vst-Est Level IV 13:49:06 C DT Ann Martinez [facility] CPT-14565 Level 4 Est. Patient 17:26:08 CDT Ann JACOBO-[id number] Vst-Est Level V 14:26:27 CDT Aneudy Childers MD [facility] CPT-68709 Level 4 Est. Patient 17:05:37 CDT Baltazar Childers MD [facility] CPT-01647 Level 4 Est. Patient 16:21:19 [employer] TECHNICIAN Baltazar Childers MD [facility]-16448 Level 4 Est. Patient 12:25:11 CDT Baltazar Childers MD [facility] CPT-68976 Level 4 Est. Patient 14:22:31 CDT Baltazar Childers MD [facility] CPT-90253 Level 4 Est. Patient 15:44:38 CDT [facility] Level 4 Est. Patient 11:34:17 CDT Baltazar Childers MD [facility] CPT-72206 Level 3 Est. Patient 16:40:40 CDT Baltazar Childers MD [facility] CPT-72976 Level 4 Est. Patient 10:41:24 CDT Baltazar Childers MD [facility] CPT-73470 Level 4 Est. Patient 16:01:48 CDT Baltazar Childers MD [facility] CPT-75406 Level 4 Est. Patient 16:54:07 [employer] TECHNICIAN Baltazar Childers MD [facility] CPT-69538 Level 4 Est. Patient 15:42:12 CDT Baltazar Childers MD [facility] CPT-96700 Level 4 Est. Patient 11:29:55 CDT Baltazar Childers MD [facility] CPT-51547 Level 4 Est. Patient 14:15:19 CDT Baltazar Childers MD [facility] CPT-24783 Level 4 Est. Patient 12:20:13 CDT Baltazar Childers MD [facility] CPT-36197 Level 4 Est. Patient 14:52:45 [employer] TECHNICIAN Baltazar Childers MD [facility] CPT-39224 Level 4 Est. Patient 14:18:34 [employer] TECHNICIAN Baltazar Childers MD [facility] CPT-53003 Level 4 Est. Patient 15:18:29 CDT Baltazar Childers MD [facility] CPT-22390 Level 3 Est. Patient 12:45:34 CDT Baltazar Childers MD [facility] CPT-15964 Level 3 Est. Patient 10:10:11 CDT Baltazar Childers MD [facility] CPT-35737 Level 3 Est. Patient 14:07:50 CDT Baltazar Childers MD [facility] CPT-84816 Level 4 Est. Patient 12:26:10 [employer] TECHNICIAN Baltazar Childers MD [facility] CPT-44951 Level 4 Est. Patient 14:45:38 CDT Baltazar Childers MD [facility] CPT-50203 Level 4 New Patient 12:30:48 CDT Baltazar hinton MD [facility] Procedures Code Procedure Name Date Entry Date Standard Desc ription CPT-77184 Venipuncture Draw Fee 16:24:55 [employer] TECHNICIAN CPT-71582 52013 - Immun Admin 1 vac 14:54:52 [employer] TECHNICIAN 2019 CPT-78248 Fluzone Quadrivalent (Flu) 0.5 mL 10Pk S yringe IM 14:54:52 [employer] TECHNICIAN CPT-LH3823Q (4013F) Statin therapy prescribed or cur rently being taken 14:07:28 [employer] TECHNICIAN CPT-EK2956X (3066F) Documentation of treatment for n ephropathy 14:07:28 [employer] TECHNICIAN CPT-48288 Venipuncture Draw Fee 17:47:23 CDT CPT-82834 4M Drug Screen cup test, Multi-panel, urine 2018 14:28:39 CDT CPT-34144 Venipuncture Draw Fee 15:19:00 CDT CPT-000 Give Appropriate Flu Vaccine 12:25:14 CDT 2 CPT-01882 First Vx - Ix admin via ID I M or jet injects without counseling by physician 13:08:59 CDT CPT-83691 Fluzone Quadrivalent Intramuscular Suspe nsion 0.5 ML 13:08:59 CDT CPT-41638 Venipuncture Draw Fee 12:04:12 CDT CPT-02836 Lipid - LAB USE ONLY 17:39:15 [employer] TECHNICIAN 9 CPT-56332 HGBA1C - LAB USE ONLY 17:39:15 [employer] TECHNICIAN CPT-84040 CMP - LAB USE ONLY 17:39:14 [employer] TECHNICIAN CPT-49956 Venipuncture Draw Fee 17:39:14 [employer] TECHNICIAN CPT-98398 First Vx - Ix admin via ID I M or jet injects without counseling by physician 16:55:17 [employer] TECHNICIAN CPT-52092 Fluzone Quadrivalent Intramuscular Suspe nsion 0.5 ML 16:55:17 [employer] TECHNICIAN CPT-60913 Renal Panel - LAB USE ONLY 17:39:20 CDT 201 10/31/07 CPT-24264 CBC - LAB USE ONLY 17:39:20 CDT CPT-09296 Venipuncture Draw Fee 17:39:20 CDT CPT-87487 Venipuncture Draw Fee 14:33:30 CDT CPT-03851 Renal Panel - LAB USE ONLY 14:33:30 CDT 201 10/31/07 CPT-19198 CBC - LAB USE ONLY 14:33:29 CDT CPT-95994 Venipuncture Draw Fee 14:50:21 [employer] TECHNICIAN CPT-34359 Immunization Single Admin 17:35:35 CDT 2014 CPT-74201 Fluzone Quadrivalent preservative free ( >=3yrs.) 17:35:35 CDT CPT-97572 Venipuncture Draw Fee 12:10:27 [employer] TECHNICIAN CPT-07447 Fluzone Quadrivalent Intramuscular Suspe nsion 0.5 ML 10:49:13 CDT CPT-48785 First Vx Component - Ix admi n via ID IM or jet inj without physician counseling 15:17:19 [employer] TECHNICIAN CPT-06039 Pneumovax 23 15:17:19 [employer] TECHNICIAN CPT-99099 Pneumovax 14:52:45 [employer] TECHNICIAN CPT-34519 Venipuncture Draw Fee 14:06:30 [employer] TECHNICIAN CPT-000 Give Appropriate Flu Vaccine 14:18:34 [employer] TECHNICIAN 2 CPT-19589 Administration single or combination vac cine inc oral 14:46:00 [employer] TECHNICIAN CPT-10351 Influenza split virus > age 3 14:46:00 [employer] TECHNICIAN CPT-OV Office Visit 19:13:16 CDT CPT-58224 Zostavax 18:41:56 CDT CPT-34171 Administration single or combination vac cine inc oral 12:56:39 CDT CPT-87569 Zoster Vaccine (Zostavax) 12:56:39 CDT 2012 CPT-55610 Venipuncture Draw Fee 10:58:57 CDT CPT-84420 Sono pelvis non OB uterus ovaries cervix 17:45:04 CDT CPT-88862 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
[2019-10-27 11:34] LABS: BILIRUBIN,TOTAL 2.1 MG/DL (0.1-1.0)
--- OUTSIDE RECORDS SUMMARY | 2019-10-27 11:34 | XMS REPORT | Clinical Summary ---
Author Author Admin, Elba Lance [facility] Address Unknown Phone Unavailable Allergies, Adverse [...] ronary atherosclerosis of unspecified type of vessel, [place] or graft OTH NONSPC ABN FINDNG RAD&OTH [...] w/ renal complications 250.4 0 Active Baltazar Chliders MD Diabetes mellitus wi th renal manifestations, [...] 1 tab every 6-8 hours PRN HYDROCODONE-ACETAMINOPHEN 72046886387 Active Baltazar silverman MD Active HUMALOG 100 UNIT/ML SUBCUTANEOUS SOLUTION Take 10 units with every meal INSULIN LISPRO 48768759392 Active Baltazar Childers MD Active NOVOLOG 100 UNIT/ML SUBCUTANEOUS SOLUTION 5 units with each meal. 2 INSULIN ASPART 21702793511 No Longer Active Fanny Hudson MA Activ e ONGLYZA 2.5 MG TABS TAKE 1 TABLET BY MOUTH EVERY DAY FOR DIABETES 2 SAXAGLIPTIN HCL 22288734387 Active Baltazar Childers MD Active GLIPIZIDE 10MG TABLETS TAKE 2 TABLETS BY MOUTH TWICE DAILY GLIPIZIDE 88742094002 Active Baltazar Childers MD Active TRUE METRIX B/G TEST STRIPS 25'S TEST BLOOD SUGAR TWICE DAILY 03/02 GLUCOSE BLOOD 96734613011 Active KENDALL Juarez Active LEVOTHYROXINE 0.112MG (112MCG) TABS TAKE 1 TABLET BY MOUTH EVERY DAY LEVOTHYROXINE SODIUM 05913366220 Active Baltazar Childers MD Active AMLODIPINE BESYLATE 5MG TABLETS TAKE 1 TABLET BY MOUTH EVERY DAY FOR HYPERTENSION AMLODIPINE BESYLATE 38926082171 Active Estefania Hudson MA Active LANTUS SOLOSTAR 100 UNIT/ML SUBCUTANEOUS SOLUTION PEN- INJECTOR 20 units am and 13 units at night INSULIN GLARGINE 97889672946 Active Baltazar Childers MD Active TRAMADOL HCL 50 MG ORAL TABLET 1 twice a day as needed for pain TRAMADOL HCL 98872483579 No Longer Active Baltazar Childers MD Active ROBAXIN 500 MG ORAL TABLET Take 1.5 (one and one half) tabs once daily METHOCARBAMOL 06421109041 Active Baltazar Childers MD Active TRUE METRIX AIR GLUCOSE METER DEVICE Use as directed BLOOD GLUCOSE MONITORING SUPPL 72703518241 Active Baltazar Childers MD Activ e NORTRIPTYLINE HCL 50 MG ORAL CAPSULE 1 twice a day for neuropathy 2 NORTRIPTYLINE HCL 60142251899 Active Baltazar Childers MD Acti ve ASPIRIN 81 MG TBEC Take one (1) tablet by mouth daily ASPIRIN 74995616090 Active Baltazar Childers MD Active GABAPENTIN 300 MG ORAL CAPSULE 1 three times a day 201 12/03/26 GABAPENTIN 43802455666 No Longer Active Baltazar Childers MD Activ e LISINOPRIL 20 MG ORAL TABLET 1 tablet by mouth daily at night 2016 LISINOPRIL 38215217365 Active Baltazar Childers MD Active ZITHROMAX Z-ISAIAS 250 MG ORAL TABLET Take two tablets to day and then 1 tablet daily for 4 days AZITHROMYCIN 17718215389 No Longer A ctive Baltazar Childers MD Active SUCRALFATE 1 GM ORAL TABLET 1 four times a day to coat the stoma ch SUCRALFATE 87434521801 No Longer Active Baltazar Childers MD Active PEN NEEDLES 31G X 6 MM use 1 daily INSULIN PEN NE EDLE 97541342586 Active KENDALL Juarez Active CELINA CURRYAR 300 UNIT/ML SUBCUTANEOUS SOLUTION PEN- INJECTOR 10 units SC daily INSULIN GLARGINE 95560477175 No Longer Active Rola ARGUETA Active NAPROXEN SODIUM 220 MG ORAL TABLET 1 three times a day as needed NAPROXEN SODIUM 20123758871 No Longer Active Baltazar Childesr MD Active ATORVASTATIN CALCIUM 20 MG ORAL TABLET Take 1 tab daily ATORVASTATIN CALCIUM 13558092914 Active Baltazar Childers MD A ctive FUROSEMIDE 40 MG ORAL TABLET Take one by mouth daily FUROSEMIDE 41609767291 Active Baltazar Childers MD Active LISINOPRIL 20 MG ORAL TABLET Take one by mouth daily at bedtime LISINOPRIL 86283876795 No Longer Active Baltazar Childers MD Active ONETOUCH ULTRA BLUE IN VITRO STRIP Test twice a day 07/11/11 GLUCOSE BLOOD 22354928395 No Longer Active Baltazar Childers MD Acti ve TRUEPLUS LANCETS 33G Test twice a day LANCETS 3667823 5090 Active KENDALL Juarez Active TRUEDRAW LANCING DEVICE Test twice a day LANCET DEVICES 71719075073 Active Baltazar Childers MD Active TRUETRACK BLOOD GLUCOSE w/Device KIT Test twice a day BLOOD GLUCOSE MONITORING SUPPL 23886974289 Active Baltazar Childers MD Activ e GABAPENTIN 300 MG ORAL CAPSULE 1 po qd x 2 days, then 1 po BID x 2 days, then 1 po TID GABAPENTIN 22213148286 No Longer Active Baltazar Childers MD Active NAPROXEN 500 MG ORAL TABLET 1 tablet by mouth twice daily NAPROXEN 16895736876 No Longer Active Baltazar Childers MD Active PROAIR HFA 108 (90 Base) MCG/ACT INHALATION AEROSOL SO LUTION 2 puffs four times a day as needed ALBUTEROL SULFATE 78273060600 Active Paul Childers MD Active DEPO-TESTOSTERONE 200 MG/ML INTRAMUSCULAR SOLUTION as directed TESTOSTERONE CYPIONATE 95484222378 No Longer Active Baltazar Childers MD Active LIPITOR 20 MG ORAL TABLET Take one by mouth daily in evening ATORVASTATIN CALCIUM 68355442490 No Longer Active Baltazar Childers MD Active CRESTOR 10 MG ORAL TABLET 1 by mouth every day ROSUVASTATIN CALCIUM 46057512242 No Longer Active Baltazar Childers MD Active PHENTERMINE HCL 37.5 MG ORAL TABLET Take one by mouth daily PHENTERMINE HCL 06873165508 No Longer Active Baltazar Childers MD Ac tive TIZANIDINE HCL 4 MG ORAL TABLET 1 daily as needed for muscle spa sm TIZANIDINE HCL 37852731906 No Longer Active Dawna Salazar RN Active [id number] 50-325-40 MG ORAL TABLET 1 fo ur times a day as needed for heacache [id number] 60268673207 Active Beth Carr, A Active SUMATRIPTAN SUCCINATE 100 MG ORAL TABLET 1 tablet by m outh at onset of migraine as needed SUMATRIPTAN SUCCINATE 02542167079 Active Fanny Hudson MA Active LORATADINE 10 MG ORAL TABLET Take one by mouth daily LORATADINE 37494757425 Active Fanny Hudson MA Active OMEPRAZOLE 20 MG ORAL CAPSULE DELAYED RELEASE Take one by mouth jostin ly OMEPRAZOLE 61689946801 Active Baltazar Childers MD Active HYDROXYZINE HCL 25 MG ORAL TABLET Take one by mouth daily HYDROXYZINE HCL 66883846426 Active Baltazar Childers MD Active ALPRAZOLAM 1 MG ORAL TABLET 1 tablet by mouth daily at [facility] ALPRAZOLAM 72082333650 Active Fanny Hudson MA Active METFORMIN HCL 1000 MG ORAL TABLET Take one by mouth twice daily METFORMIN HCL 35643159288 Active Baltazar Childers MD Active TIZANIDINE HCL 4 MG ORAL TABLET 1 daily as needed for muscle spa TIZANIDINE HCL 4 MG ORAL TABLET 690180 TIZANIDINE HCL Inactive PHENTERMINE HCL 37.5 MG ORAL TABLET Take one by mouth daily PHENTERMINE HCL 37.5 MG ORAL TABLET 640995 PHENTERMINE HCL Inac tive CRESTOR 10 MG ORAL TABLET 1 by mouth every day CRESTOR 10 MG ORAL TABLET 487937 ROSUVASTATIN CALCIUM Inactive LIPITOR 20 MG ORAL TABLET Take one by mouth daily in evening LIPITOR 20 MG ORAL TABLET 859865 ATORVASTATIN CALCIUM Inactive DEPO-TESTOSTERONE 200 MG/ML INTRAMUSCULAR SOLUTION as directed DEPO-TESTOSTERONE 200 MG/ML INTRAMUSCULAR SOLUTION 4340276 RUFINO TOSTERONE CYPIONATE Inactive NAPROXEN 500 MG ORAL TABLET 1 tablet by mouth twice daily NAPROXEN 500 MG ORAL TABLET 091589 NAPROXEN Inactive GABAPENTIN 300 MG ORAL CAPSULE 1 po qd x 2 days, then 1 po BID x 2 days, then 1 po TID GABAPENTIN 300 MG ORAL CAPSULE 440842 GABAP ENTIN Inactive ONETOUCH ULTRA BLUE IN VITRO STRIP Test twice a day 20 07/11/11 ONETOUCH ULTRA BLUE IN VITRO STRIP GLUCOSE BLOOD Inact amie NAPROXEN SODIUM 220 MG ORAL TABLET 1 three times a day as needed NAPROXEN SODIUM 220 MG ORAL TABLET 99107414201 NAPROXEN SODI UM Inactive TOUJEO SOLOSTAR 300 UNIT/ML SUBCUTANEOUS SOLUTION PEN- INJECTOR 10 units SC daily TOUJEO SOLOSTAR 300 UNIT/ML SUBCUTANEOUS SOLUTION PEN-INJECTOR INSULIN GLARGINE Inactive SUCRALFATE 1 GM ORAL TABLET 1 four times a day to coat the stoma ch SUCRALFATE 1 GM ORAL TABLET 276362 SUCRALFATE Inac tive GABAPENTIN 300 MG ORAL CAPSULE 1 three times a day 201 12/03/26 GABAPENTIN 300 MG ORAL CAPSULE 024098 GABAPENTIN Inactive TRAMADOL HCL 50 MG ORAL TABLET 1 twice a day as needed for pain TRAMADOL HCL 50 MG ORAL TABLET 091518 TRAMADOL HCL I nactive ZITHROMAX Z-ISAIAS 250 MG ORAL TABLET Take two tablets to day and then 1 tablet daily for 4 days ZITHROMAX Z-ISAIAS 250 MG ORAL TAB LET 489079 AZITHROMYCIN Inactive Immunizations Vaccine Administration Date Value Standard Floyd cription influenza immunization (Flu Vax) has been administered 05/11 Done according to patient influenza virus vaccine, unspecified for mulation pneumococcal immunization administered Pneumovax 23 [CVX33] pneumococcal polysaccharide vaccine, 23 valent Seasonal influenza vaccine, injectable, containing preservative, for > 3 years old (Afluria, FluLaval, Fluzone, Fluvirin, Fluarix, Agriflu(>= 18 yo)) Fluzone (>3 yrs.) [[id number]] Influenza, seasonal, inject able Seasonal influenza vaccine, injectable, containing preservative, for > 3 years old (Afluria, FluLaval, Fluzone, Fluvirin, Fluarix, Agriflu(>= 18 yo)) Fluzone (>3 yrs.) [[id number]] Influenza, seasonal, inject able Vital Signs Date [...] - Chem istry sodium, serum 136 mmol/L 918-231 4695/06/04 potassium, serum 4.9 mmol/L 3.5-5.2 chloride, serum 97 mmol/L 98-107 carbon dioxide, venous blood 35.3 mmol/L 21.0-32 .0 blood glucose 239 mg/dL 65-95 calcium, serum 10.6 mg/dL 8.5-10.1 urea nitrogen, blood 31 mg/dL 7-18 creatinine, serum 2.33 mg/dL 0.60-1.30 Estimated Glomerular Filtration Rate (calc) 23 (?) mL/min/1.73m2 = OR > 60 mL/min sodium, serum 141 mmol/L 648-620 3008/07/09 potassium, serum 4.9 mmol/L 3.5-5.2 chloride, serum [...] C - Chemistry sodium, serum 137 mmol/L 823-001 8924/10/17 potassium, serum 4.9 mmol/L 3.5-5.2 chloride, serum [...] Ordered Encounters Code Encounter Date Provider Facility CPT-69893 [id number] Vst-Est Level IV 14:22:53 X RAY TECHNICIAN Charlie Childers MD [facility] CPT-64993 [id number] Vst-Est Level IV 15:48:51 X RAY TECHNICIAN Charlie Childers MD [facility] CPT-30349 13397-Kcv Vst-Est Level V 14:28:39 CDT Aneudy Childers MD [facility] CPT-63625 35325-Shp Vst-Est Level IV 15:03:32 CDT Charlie Childers MD [facility] CPT-19035 17161-Zur Vst-Est Level III 15:51:57 CDT Baltazar Childers MD [facility] CPT-44080 99661-Sfr Vst-Est Level IV 15:14:58 CDT Charlie Childers MD [facility] CPT-96410 63988-Tam Vst-Est Level IV 15:12:52 X RAY TECHNICIAN Charlie Childers MD [facility] CPT-05347 [id number] Vst-Est Level IV 15:30:55 X RAY TECHNICIAN Charlie Childers MD [facility]-85627 76318-Jgi Vst-Est Level IV 13:49:06 C DT Ann Martinez [facility] CPT-18789 Level 4 Est. Patient 17:26:08 CDT Ann trujillo [facility] CPT-55305 50463-Qyk Vst-Est Level V 14:26:27 CDT Aneudy Childers MD [facility] CPT-06776 Level 4 Est. Patient 17:05:37 CDT Baltazar Childers MD [facility] CPT-71781 Level 4 Est. Patient 16:21:19 X RAY TECHNICIAN Baltazar Childers MD [facility] CPT-86960 Level 4 Est. Patient 12:25:11 CDT Baltazar Childers MD [facility] CPT-46064 Level 4 Est. Patient 14:22:31 CDT Baltazar Childers MD [facility] CPT-07153 Level 4 Est. Patient 15:44:38 [facility] Level 4 Est. Patient 11:34:17 CDT Baltazar Childers MD [facility] CPT-97246 Level 3 Est. Patient 16:40:40 CDT Baltazar Childers MD [facility] CPT-50629 Level 4 Est. Patient 10:41:24 CDT Baltazar Childers MD [facility] CPT-08149 Level 4 Est. Patient 16:01:48 CDT Baltazar Childers MD [facility] CPT-72498 Level 4 Est. Patient 16:54:07 X RAY TECHNICIAN Baltazar Childers MD [facility] CPT-34023 Level 4 Est. Patient 15:42:12 CDT Baltazar Childers MD [facility] CPT-80939 Level 4 Est. Patient 11:29:55 CDT Baltazar Childers MD [facility] CPT-18115 Level 4 Est. Patient 14:15:19 CDT Baltazar Childers MD [facility] CPT-77926 Level 4 Est. Patient 12:20:13 CDT Baltazar Childers MD [facility] CPT-64302 Level 4 Est. Patient 14:52:45 X RAY TECHNICIAN Baltazar Childers MD [facility] CPT-09454 Level 4 Est. Patient 14:18:34 X RAY TECHNICIAN Baltazar Childers MD [facility] CPT-60785 Level 4 Est. Patient 15:18:29 CDT Baltazar Childers MD [facility] CPT-91743 Level 3 Est. Patient 12:45:34 CDT Baltazar Childers MD [facility] CPT-81819 Level 3 Est. Patient 10:10:11 CDT Baltazar Childers MD [facility] CPT-99689 Level 3 Est. Patient 14:07:50 CDT Baltazar Childers MD [facility] CPT-66648 Level 4 Est. Patient 12:26:10 X RAY TECHNICIAN Baltazar Childers MD [facility] CPT-56264 Level 4 Est. Patient 14:45:38 CDT Baltazar Childers MD [facility] CPT-61436 Level 4 New Patient 12:30:48 CDT Baltazar hinton MD [facility] Procedures Code Procedure Name Date Entry Date Standard Desc ription CPT-AF1446F (4013F) Statin therapy prescribed or cur rently being taken 14:07:28 X RAY TECHNICIAN CPT-LT9380A (3066F) Documentation of treatment for n ephropathy 14:07:28 X RAY TECHNICIAN CPT-37324 Venipuncture Draw Fee 17:47:23 CDT CPT-01328 4M Drug Screen cup test, Multi-panel, urine 2018 14:28:39 CDT CPT-23828 Venipuncture Draw Fee 15:19:00 CDT CPT-000 Give Appropriate Flu Vaccine 12:25:14 CDT 2 CPT-48512 First Vx - Ix admin via ID I M or jet injects without counseling by physician 13:08:59 CDT CPT-97302 Fluzone Quadrivalent Intramuscular Suspe nsion 0.5 ML 13:08:59 CDT CPT-62728 Venipuncture Draw Fee 12:04:12 CDT CPT-88765 Lipid - LAB USE ONLY 17:39:15 X RAY TECHNICIAN 9 CPT-81411 HGBA1C - LAB USE ONLY 17:39:15 X RAY TECHNICIAN CPT-66664 CMP - LAB USE ONLY 17:39:14 X RAY TECHNICIAN CPT-93878 Venipuncture Draw Fee 17:39:14 X RAY TECHNICIAN CPT-71172 First Vx - Ix admin via ID I M or jet injects without counseling by physician 16:55:17 X RAY TECHNICIAN CPT-58244 Fluzone Quadrivalent Intramuscular Suspe nsion 0.5 ML 16:55:17 X RAY TECHNICIAN CPT-69866 Renal Panel - LAB USE ONLY 17:39:20 CDT 201 10/31/07 CPT-14431 CBC - LAB USE ONLY 17:39:20 CDT CPT-59676 Venipuncture Draw Fee 17:39:20 CDT CPT-55371 Venipuncture Draw Fee 14:33:30 CDT CPT-30553 Renal Panel - LAB USE ONLY 14:33:30 CDT 201 10/31/07 CPT-37151 CBC - LAB USE ONLY 14:33:29 CDT CPT-41693 Venipuncture Draw Fee 14:50:21 X RAY TECHNICIAN CPT-03427 Immunization Single Admin 17:35:35 CDT 2014 CPT-22742 Fluzone Quadrivalent preservative free ( >=3yrs.) 17:35:35 CDT CPT-86656 Venipuncture Draw Fee 12:10:27 X RAY TECHNICIAN CPT-64061 Fluzone Quadrivalent Intramuscular Suspe nsion 0.5 ML 10:49:13 CDT CPT-57599 First Vx Component - Ix admi n via ID IM or jet inj without physician counseling 15:17:19 X RAY TECHNICIAN CPT-06897 Pneumovax 23 15:17:19 X RAY TECHNICIAN CPT-71414 Pneumovax 14:52:45 X RAY TECHNICIAN CPT-49815 Venipuncture Draw Fee 14:06:30 X RAY TECHNICIAN CPT-000 Give Appropriate Flu Vaccine 14:18:34 X RAY TECHNICIAN 2 CPT-46937 Administration single or combination vac cine inc oral 14:46:00 X RAY TECHNICIAN CPT-88557 Influenza split virus > age 3 14:46:00 X RAY TECHNICIAN CPT-OV Office Visit 19:13:16 CDT CPT-55838 Zostavax 18:41:56 CDT CPT-90652 Administration single or combination vac cine inc oral 12:56:39 CDT CPT-56227 Zoster Vaccine (Zostavax) 12:56:39 CDT 2012 CPT-73386 Venipuncture Draw Fee 10:58:57 CDT CPT-50873 Sono pelvis non OB uterus ovaries cervix 17:45:04 CDT CPT-55836 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
--- OUTSIDE RECORDS SUMMARY | 2019-10-27 11:34 | XMS REPORT | Clinical Summary ---
Author Author Admin, Elba Lance Fermentalg Address Unknown Phone Unavailable Allergies, Adverse Reactions, [...] and unspecified hyperlipidemia Familial hypercholesterolemia 272.4 Active 2018/11/17 Baltazar Childers MD Other and unspecified hyperlipidemia [...] obesity Obesity Class II (BMI 35-39.9) 278.01 Active 04/12 Maria Victoria Rahman Morbid obesity ADD 314.00 Active Baltazar Childers [...] kidney and ureter CAD 414.00 Active Gladys Yazmin LRT Co ronary atherosclerosis of unspecified type of vessel, [place] or graft OTH NONSPC ABN FINDNG RAD&OTH EXM BODY STRUCTURE 793.99 11/08 Active Jessy Ruiz Other nonspecific (a bnormal) findings on radiological and other examinations of body structure NEED PROPH VACC&INOCULAT AGNST OTH SPEC DISEASE V05.8 Active Elba Faux RMA Need for prophylacti c vaccination and inoculation against other specified disease UNSPECIFIED DISORDER OF KIDNEY AND URETER 593.9 Activ e Elba Faux RMA Unspecified disorder of kidney and urete [...] stage III 585.3 Refinement 201 10/25/03 Elba Kaeux RMA Chronic kidney disease, Stage III (moder ate) [...] Active Baltazar Childers MD Unspecified sleep apnea COLON POLYPS ICD-211.3 Inactive Lolis Bynum Pharyngitis ICD-462 Inactive Baltazar Childers MD Medication List Medication Instructions Start Date Stop Date Generic Name NDC Status Provider Patient Instruction HUMALOG 100 UNIT/ML SUBCUTANEOUS SOLUTION Take 5 units with every meal INSULIN LISPRO 38701908028 Active Fadumo Ruiz Active HYDROCODONE-ACETAMINOPHEN 7.5-325 MG ORAL TABLET Take 1 tab every 6-8 hours PRN HYDROCODONE-ACETAMINOPHEN 60854772173 Active Baltazar Nickerson MD Active NOVOLOG 100 UNIT/ML SUBCUTANEOUS SOLUTION 5 units with each meal. 2 INSULIN ASPART 91675299382 No Longer Active Fanny Hudson MA Activ e ONGLYZA 2.5 MG TABS TAKE 1 TABLET BY MOUTH EVERY DAY FOR DIABETES 2 SAXAGLIPTIN HCL 85806293466 Active Fanny Hudson MA Active GLIPIZIDE 10MG TABLETS TAKE 2 TABLETS BY MOUTH TWICE DAILY GLIPIZIDE 22179406162 Active Fanny Hudson MA Active TRUE METRIX B/G TEST STRIPS 25'S TEST BLOOD SUGAR TWICE DAILY 03/02 GLUCOSE BLOOD 72895201375 Active KENDALL Juarez Active LEVOTHYROXINE 0.112MG (112MCG) TABS TAKE 1 TABLET BY MOUTH EVERY DAY LEVOTHYROXINE SODIUM 67718005080 Active Fanny Hudson MA Active AMLODIPINE BESYLATE 5MG TABLETS TAKE 1 TABLET BY MOUTH EVERY DAY FOR HYPERTENSION AMLODIPINE BESYLATE 51396006081 Active Estefania Hudson MA Active LANTUS SOLOSTAR 100 UNIT/ML SUBCUTANEOUS SOLUTION PEN- INJECTOR 20 units am and 13 units at night INSULIN GLARGINE 43426855295 Active Fanny Hudson MA Active TRAMADOL HCL 50 MG ORAL TABLET 1 twice a day as needed for pain TRAMADOL HCL 96168078882 No Longer Active Baltazar Childers MD Active ROBAXIN 500 MG ORAL TABLET Take 1.5 (one and one half) tabs once daily METHOCARBAMOL 99907368238 Active Fanny Hudson MA Active TRUE METRIX AIR GLUCOSE METER DEVICE Use as directed BLOOD GLUCOSE MONITORING SUPPL 26963795162 Active Baltazar Childers MD Activ e NORTRIPTYLINE HCL 50 MG ORAL CAPSULE 1 twice a day for neuropathy 2 NORTRIPTYLINE HCL 47381581772 Active Fanny Hudson MA Active ASPIRIN 81 MG TBEC Take one (1) tablet by mouth daily ASPIRIN 68160768024 Active Baltazar Childers MD Active GABAPENTIN 300 MG ORAL CAPSULE 1 three times a day 201 12/03/26 GABAPENTIN 80746676168 No Longer Active Baltazar Childers MD Activ e LISINOPRIL 20 MG ORAL TABLET 1 tablet by mouth daily at night 2016 LISINOPRIL 85122701143 Active Fanny Hudson MA Active ZITHROMAX Z-ISAIAS 250 MG ORAL TABLET Take two tablets to day and then 1 tablet daily for 4 days AZITHROMYCIN 74347445334 No Longer A ctive Baltazar Childers MD Active SUCRALFATE 1 GM ORAL TABLET 1 four times a day to coat the stoma ch SUCRALFATE 40823744941 No Longer Active Baltazar Childers MD Active PEN NEEDLES 31G X 6 MM use 1 daily INSULIN PEN NE EDLE 58528014094 Active KENDALL Juarez Active CELINA PARIKH 300 UNIT/ML SUBCUTANEOUS SOLUTION PEN- INJECTOR 10 units SC daily INSULIN GLARGINE 86826570189 No Longer Active Rola ARGUETA Active NAPROXEN SODIUM 220 MG ORAL TABLET 1 three times a day as needed NAPROXEN SODIUM 94179004126 No Longer Active Baltazar Childers MD Active ATORVASTATIN CALCIUM 20 MG ORAL TABLET Take 1 tab daily ATORVASTATIN CALCIUM 75157809560 Active Fanny Hudson MA Act amie FUROSEMIDE 40 MG ORAL TABLET Take one by mouth daily FUROSEMIDE 42834555767 Active Fanny Hudson MA Active LISINOPRIL 20 MG ORAL TABLET Take one by mouth daily at bedtime LISINOPRIL 79256494309 No Longer Active Baltazar Childers MD Active ONETOUCH ULTRA BLUE IN VITRO STRIP Test twice a day 07/11/11 GLUCOSE BLOOD 95292672392 No Longer Active Baltazar Childers MD Acti ve TRUEPLUS LANCETS 33G Test twice a day LANCETS 7767597 2893 Active KENDALL Juarez Active TRUEDRAW LANCING DEVICE Test twice a day LANCET DEVICES 20240576694 Active Baltazar Childers MD Active TRUETRACK BLOOD GLUCOSE w/Device KIT Test twice a day BLOOD GLUCOSE MONITORING SUPPL 35268642386 Active Baltazar Childers MD Activ e GABAPENTIN 300 MG ORAL CAPSULE 1 po qd x 2 days, then 1 po BID x 2 days, then 1 po TID GABAPENTIN 23215385615 No Longer Active Baltazar Childers MD Active NAPROXEN 500 MG ORAL TABLET 1 tablet by mouth twice daily NAPROXEN 05281706737 No Longer Active Baltazar Childers MD Active PROAIR HFA 108 (90 Base) MCG/ACT INHALATION AEROSOL SO LUTION 2 puffs four times a day as needed ALBUTEROL SULFATE 85900984122 Active Kun Hudson MA Active DEPO-TESTOSTERONE 200 MG/ML INTRAMUSCULAR SOLUTION as directed TESTOSTERONE CYPIONATE 11702013633 No Longer Active Baltazar Childers MD Active LIPITOR 20 MG ORAL TABLET Take one by mouth daily in evening ATORVASTATIN CALCIUM 88476233490 No Longer Active Baltazar Childers MD Active CRESTOR 10 MG ORAL TABLET 1 by mouth every day ROSUVASTATIN CALCIUM 93089351707 No Longer Active Baltazar Childers MD Active PHENTERMINE HCL 37.5 MG ORAL TABLET Take one by mouth daily PHENTERMINE HCL 98335202137 No Longer Active Baltazar Childers MD Ac tive TIZANIDINE HCL 4 MG ORAL TABLET 1 daily as needed for muscle spa sm TIZANIDINE HCL 94925721511 No Longer Active Dawna Salazar RN Active [id number] 50-325-40 MG ORAL TABLET 1 fo ur times a day as needed for heacache [id number] 23812403581 Active KENDALL Juarez Active SUMATRIPTAN SUCCINATE 100 MG ORAL TABLET 1 tablet by m outh at onset of migraine as needed SUMATRIPTAN SUCCINATE 62107563367 Active Fanny Hudson MA Active LORATADINE 10 MG ORAL TABLET Take one by mouth daily LORATADINE 34612458130 Active Fanny Hudson MA Active OMEPRAZOLE 20 MG ORAL CAPSULE DELAYED RELEASE Take one by mouth jostin ly OMEPRAZOLE 68757500751 Active Fanny Hudson MA Active HYDROXYZINE HCL 25 MG ORAL TABLET Take one by mouth daily HYDROXYZINE HCL 65986741008 Active Fanny Hudson MA Active ALPRAZOLAM 1 MG ORAL TABLET 1 tablet by mouth [facility] ALPRAZOLAM 49821437577 Active Fanny Hudson MA Active METFORMIN HCL 1000 MG ORAL TABLET Take one by mouth twice daily METFORMIN HCL 89685072504 Active Fanny Hudson MA Active TIZANIDINE HCL 4 MG ORAL TABLET 1 daily as needed for muscle spa sm TIZANIDINE HCL 4 MG ORAL TABLET 064057 TIZANIDINE HCL Inactive PHENTERMINE HCL 37.5 MG ORAL TABLET Take one by mouth daily PHENTERMINE HCL 37.5 MG ORAL TABLET 961630 PHENTERMINE HCL Inac tive CRESTOR 10 MG ORAL TABLET 1 by mouth every day CRESTOR 10 MG ORAL TABLET 025746 ROSUVASTATIN CALCIUM Inactive LIPITOR 20 MG ORAL TABLET Take one by mouth daily in evening LIPITOR 20 MG ORAL TABLET 815592 ATORVASTATIN CALCIUM Inactive DEPO-TESTOSTERONE 200 MG/ML INTRAMUSCULAR SOLUTION as directed DEPO-TESTOSTERONE 200 MG/ML INTRAMUSCULAR SOLUTION 9935833 RUFINO TOSTERONE CYPIONATE Inactive NAPROXEN 500 MG ORAL TABLET 1 tablet by mouth twice daily NAPROXEN 500 MG ORAL TABLET 046733 NAPROXEN Inactive GABAPENTIN 300 MG ORAL CAPSULE 1 po qd x 2 days, then 1 po BID x 2 days, then 1 po TID GABAPENTIN 300 MG ORAL CAPSULE 141768 GABAP ENTIN Inactive ONETOUCH ULTRA BLUE IN VITRO STRIP Test twice a day 07/11/11 ONETOUCH ULTRA BLUE IN VITRO STRIP GLUCOSE BLOOD Inact amie NAPROXEN SODIUM 220 MG ORAL TABLET 1 three times a day as needed NAPROXEN SODIUM 220 MG ORAL TABLET 60765253637 NAPROXEN SODI UM Inactive TOUJEO SOLOSTAR 300 UNIT/ML SUBCUTANEOUS SOLUTION PEN- INJECTOR 10 units SC daily TOUJEO SOLOSTAR 300 UNIT/ML SUBCUTANEOUS SOLUTION PEN-INJECTOR INSULIN GLARGINE Inactive SUCRALFATE 1 GM ORAL TABLET 1 four times a day to coat the stoma ch SUCRALFATE 1 GM ORAL TABLET 805809 SUCRALFATE Inac tive GABAPENTIN 300 MG ORAL CAPSULE 1 three times a day 201 12/03/26 GABAPENTIN 300 MG ORAL CAPSULE 198345 GABAPENTIN Inactive TRAMADOL HCL 50 MG ORAL TABLET 1 twice a day as needed for pain TRAMADOL HCL 50 MG ORAL TABLET 090001 TRAMADOL HCL I nactive ZITHROMAX Z-ISAIAS 250 MG ORAL TABLET Take two tablets to day and then 1 tablet daily for 4 days ZITHROMAX Z-ISAIAS 250 MG ORAL TAB LET 123910 AZITHROMYCIN Inactive Immunizations Vaccine Administration Date Value Standard Floyd cription influenza immunization (Flu Vax) has been administered 05/11 Done according to patient influenza virus vaccine, unspecified for mulation pneumococcal immunization administered Pneumovax 23 [CVX33] pneumococcal polysaccharide vaccine, 23 valent Seasonal influenza vaccine, injectable, containing preservative, for > 3 years old (Afluria, FluLaval, Fluzone, Fluvirin, Fluarix, Agriflu(>= 18 yo)) Fluzone (>3 yrs.) [YWX991] Influenza, seasonal, inject able Seasonal influenza vaccine, injectable, containing preservative, for > 3 years old (Afluria, FluLaval, Fluzone, Fluvirin, Fluarix, Agriflu(>= 18 yo)) Fluzone (>3 yrs.) [PHV501] Influenza, seasonal, inject able Vital Signs Date Name Value Unit Range Description blood pressure, diastolic, second observation 84 m [...] - Chem istry sodium, serum 136 mmol/L 065-793 5263/06/04 potassium, serum 4.9 mmol/L 3.5-5.2 chloride, serum 97 mmol/L 98-107 carbon dioxide, venous blood 35.3 mmol/L 21.0-32 .0 blood glucose 239 mg/dL 65-95 calcium, serum 10.6 mg/dL 8.5-10.1 urea nitrogen, blood 31 mg/dL 7-18 creatinine, serum 2.33 mg/dL 0.60-1.30 Estimated Glomerular Filtration Rate (calc) 23 (?) mL/min/1.73m2 = OR > 60 mL/min sodium, serum 141 mmol/L 566-353 4480/07/09 potassium, serum 4.9 mmol/L 3.5-5.2 chloride, serum [...] C - Chemistry sodium, serum 137 mmol/L 759-377 5802/10/17 potassium, serum 4.9 mmol/L 3.5-5.2 chloride, serum [...] Ordered Encounters Code Encounter Date Provider Facility CPT-40509 40648-Tiv Vst-Est Level IV 15:48:51 WHIP SAWYER Charlie Childers MD [facility] CPT-94106 10319-Ete Vst-Est Level V 14:28:39 CDT Aneudy Childers MD [facility] CPT-72684 72882-Sou Vst-Est Level IV 15:03:32 CDT Charlie Childers MD [facility] CPT-10152 67779-Pju Vst-Est Level III 15:51:57 CDT Baltazar Childers MD [facility] CPT-96555 36507-Rmx Vst-Est Level IV 15:14:58 CDT Charlie Childers MD [facility] CPT-69636 84856-Zil Vst-Est Level IV 15:12:52 WHIP SAWYER Charlie Childers MD [facility] CPT-92455 47220-Anr Vst-Est Level IV 15:30:55 WHIP SAWYER Charlie Childers MD [facility] CPT-99950 80974-Omd Vst-Est Level IV 13:49:06 C DT Ann Martinez [facility] CPT-76202 Level 4 Est. Patient 17:26:08 [facility] 72177-Qno Vst-Est Level V 14:26:27 CDT Aneudy Childers MD [facility] CPT-15453 Level 4 Est. Patient 17:05:37 CDT Baltazar Childers MD [facility] CPT-34730 Level 4 Est. Patient 16:21:19 WHIP SAWYER Baltazar Childers MD [facility] CPT-47770 Level 4 Est. Patient 12:25:11 CDT Baltazar Childers MD [facility] CPT-66084 Level 4 Est. Patient 14:22:31 CDT Baltazar Childers MD [facility]-32643 Level 4 Est. Patient 15:44:38 CDT Shonna Parker APRN [facility]-75946 Level 4 Est. Patient 11:34:17 CDT Baltazar Childers MD [facility]-55686 Level 3 Est. Patient 16:40:40 CDT Baltazar Childers MD [facility]-99727 Level 4 Est. Patient 10:41:24 CDT Baltazar Childers MD [facility]-97076 Level 4 Est. Patient 16:01:48 CDT Baltazar Childers MD [facility]-71515 Level 4 Est. Patient 16:54:07 WHIP SAWYER Baltazar Childers MD [facility]-49441 Level 4 Est. Patient 15:42:12 CDT Baltazar Childers MD [facility]-45232 Level 4 Est. Patient 11:29:55 CDT Baltazar Childers MD [facility]-11366 Level 4 Est. Patient 14:15:19 CDT Baltazar Childers MD [facility]-71892 Level 4 Est. Patient 12:20:13 CDT Baltazar Childers MD [facility]-86241 Level 4 Est. Patient 14:52:45 WHIP SAWYER Baltazar Childers MD [facility]-15436 Level 4 Est. Patient 14:18:34 WHIP SAWYER Baltazar Childers MD [facility] CPT-20534 Level 4 Est. Patient 15:18:29 CDT Baltazar Childers MD [facility]-86200 Level 3 Est. Patient 12:45:34 CDT Baltazar Childers MD [facility]-67448 Level 3 Est. Patient 10:10:11 CDT Baltazar Childers MD [facility]-49903 Level 3 Est. Patient 14:07:50 CDT Baltazar Childers MD [facility] CPT-13148 Level 4 Est. Patient 12:26:10 WHIP SAWYER Baltazar Childers MD [facility] CPT-81674 Level 4 Est. Patient 14:45:38 CDT Baltazar Childers MD [facility] CPT-39042 Level 4 New Patient 12:30:48 CDT Baltazar hinton MD [facility] Procedures Code Procedure Name Date Entry Date Standard Desc ription CPT-91967 Venipuncture Draw Fee 17:47:23 CDT CPT-01297 4M Drug Screen cup test, Multi-panel, urine 2018 14:28:39 CDT CPT-57036 Venipuncture Draw Fee 15:19:00 CDT CPT-000 Give Appropriate Flu Vaccine 12:25:14 CDT 2 CPT-69524 First Vx - Ix admin via ID I M or jet injects without counseling by physician 13:08:59 CDT CPT-12822 Fluzone Quadrivalent Intramuscular Suspe nsion 0.5 ML 13:08:59 CDT CPT-30429 Venipuncture Draw Fee 12:04:12 CDT CPT-54796 Lipid - LAB USE ONLY 17:39:15 WHIP SAWYER 9 CPT-95316 HGBA1C - LAB USE ONLY 17:39:15 WHIP SAWYER CPT-73487 CMP - LAB USE ONLY 17:39:14 WHIP SAWYER CPT-16882 Venipuncture Draw Fee 17:39:14 WHIP SAWYER CPT-26443 First Vx - Ix admin via ID I M or jet injects without counseling by physician 16:55:17 WHIP SAWYER CPT-83222 Fluzone Quadrivalent Intramuscular Suspe nsion 0.5 ML 16:55:17 WHIP SAWYER CPT-96106 Renal Panel - LAB USE ONLY 17:39:20 CDT 201 10/31/07 CPT-68906 CBC - LAB USE ONLY 17:39:20 CDT CPT-19255 Venipuncture Draw Fee 17:39:20 CDT CPT-73195 Venipuncture Draw Fee 14:33:30 CDT CPT-74442 Renal Panel - LAB USE ONLY 14:33:30 CDT 201 10/31/07 CPT-56977 CBC - LAB USE ONLY 14:33:29 CDT CPT-82285 Venipuncture Draw Fee 14:50:21 WHIP SAWYER CPT-02495 Immunization Single Admin 17:35:35 CDT 2014 CPT-57135 Fluzone Quadrivalent preservative free ( >=3yrs.) 17:35:35 CDT CPT-63677 Venipuncture Draw Fee 12:10:27 WHIP SAWYER CPT-90138 Fluzone Quadrivalent Intramuscular Suspe nsion 0.5 ML 10:49:13 CDT CPT-90160 First Vx Component - Ix admi n via ID IM or jet inj without physician counseling 15:17:19 WHIP SAWYER CPT-29705 Pneumovax 23 15:17:19 WHIP SAWYER CPT-51820 Pneumovax 14:52:45 WHIP SAWYER CPT-17144 Venipuncture Draw Fee 14:06:30 WHIP SAWYER CPT-000 Give Appropriate Flu Vaccine 14:18:34 WHIP SAWYER 2 CPT-97437 Administration single or combination vac cine inc oral 14:46:00 WHIP SAWYER CPT-02010 Influenza split virus > age 3 14:46:00 WHIP SAWYER CPT-OV Office Visit 19:13:16 CDT CPT-33644 Zostavax 18:41:56 CDT CPT-17726 Administration single or combination vac cine inc oral 12:56:39 CDT CPT-83610 Zoster Vaccine (Zostavax) 12:56:39 CDT 2012 CPT-29382 Venipuncture Draw Fee 10:58:57 CDT CPT-82612 Sono pelvis non OB uterus ovaries cervix 17:45:04 CDT CPT-17904 Sono retroperitoneal complete kidneys an d bladder 17:14:36 CDT CPT-OV Office Visit 14:59:38 WHIP SAWYER CPT-J1070 Depo Testosterone 100 mg 14:50:13 CDT 03/05 CPT-68856 Abx/Therapy Injection 14:50:13 CDT CPT-37752 Administration single or combination vac cine inc oral 14:34:43 CDT CPT-32731 Influenza split virus > age 3 14:34:43 CDT CPT-J1070 Depo Testosterone 100 mg 17:37:13 CDT 01/11 CPT-74963 Abx/Therapy Injection 17:37:13 CDT CPT-10292 Venipuncture Draw Fee 16:30:13 CDT CPT-96991 Venipuncture Draw Fee 16:29:43 CDT CPT-J1070 Depo Testosterone 100 mg 14:45:38 CDT 01/11
--- OUTSIDE RECORDS SUMMARY | 2019-10-27 11:35 | XMS REPORT | Clinical Summary ---
Author Author Admin, Elba Lance [facility] Address Unknown Phone Unavailable Allergies, Adverse [...] Childers MD Edema ALLERGIC RHINITIS 477.9 Active Baltazra Childers MD Allergic rhinitis, cause unspecified MIGRAINE [...] Morbid obesity due to excess calories 278.01 [facility] t Baltazar Childers MD Morbid obesity Obesity Class II (BMI 35-39.9) 278.01 Refinement 10/26 Baltazar Childers MD Morbid obesity Morbid obesity due to excess calories 278.01 [facility] t Baltazar Childers MD Morbid obesity Obesity Class II (BMI 35-39.9) 278.01 Refinement 01/19 Baltazar Childers MD Morbid obesity Morbid obesity due to excess calories 278.01 Active Baltazar Childers MD Morbid obesity ADD 314.00 Active Baltazar hCilders MD Attention deficit disorder of childhood without [...] kidney and ureter CAD 414.00 Active Gladys Nievesw [facility] ronary atherosclerosis of unspecified type of vessel, [place] or graft OTH NONSPC ABN FINDNG RAD&OTH [...] sleep apnea COLON POLYPS ICD-211.3 Inactive Lolis Thomas APR N Pharyngitis ICD-462 Inactive Baltazar Childers MD Medication List Medication Instructions Start Date Stop Date Generic Name NDC Status Provider Patient Instruction LANTUS SOLOSTAR 100 UNIT/ML SUBCUTANEOUS SOLUTION PEN- INJECTOR 20 units am and 13 units at night INSULIN GLARGINE 39955399310 Active Baltazar Childers MD Active ONGLYZA 2.5 MG ORAL TABLET 1 daily for diabetes SAXAGLIPTIN HCL 00302058826 Active Baltazar Childers MD Active TRAMADOL HCL 50 MG ORAL TABLET 1 twice a day as needed for pain TRAMADOL HCL 10396664963 No Longer Active Baltazar Childers MD Active ROBAXIN 500 MG ORAL TABLET Take 1.5 (one and one half) tabs once daily METHOCARBAMOL 57378851613 Active Baltazar Childers MD Active SYNTHROID 112 MCG ORAL TABLET Take one tablet a day LEVOTHYROXINE SODIUM 95100818080 Active Baltazar Childers MD Active TRUE METRIX AIR GLUCOSE METER DEVICE Use as directed BLOOD GLUCOSE MONITORING SUPPL 62470342810 Active Baltazar Childers MD Activ e TRUE METRIX BLOOD GLUCOSE TEST IN VITRO STRIP test blood sug ar BID Dx: E11.65 GLUCOSE BLOOD 53814843770 Active KENDALL Juarez Active NORTRIPTYLINE HCL 50 MG ORAL CAPSULE 1 twice a day for neuropathy 2 NORTRIPTYLINE HCL 78410513097 Active Baltazar Childers MD Acti ve ASPIRIN 81 MG TBEC Take one (1) tablet by mouth daily ASPIRIN 74366266130 Active Baltazar Childers MD Active GABAPENTIN 300 MG ORAL CAPSULE 1 three times a day 201 12/03/26 GABAPENTIN 25193686785 No Longer Active Baltazar Childers MD Activ e LISINOPRIL 20 MG ORAL TABLET 1 tablet by mouth daily at night 2016 LISINOPRIL 21202764518 Active Baltazar Childers MD Active ZITHROMAX Z-ISAIAS 250 MG ORAL TABLET Take two tablets to day and then 1 tablet daily for 4 days AZITHROMYCIN 21707960263 No Longer A ctive Baltazar Childers MD Active AMLODIPINE BESYLATE 5 MG ORAL TABLET 1 tab daily for HTN AMLODIPINE BESYLATE 79757321264 Active Baltazar Childers MD Active GLIPIZIDE 10 MG ORAL TABLET take 2 tablets twice daily GLIPIZIDE 46318791296 Active Baltazar Childers MD Active SUCRALFATE 1 GM ORAL TABLET 1 four times a day to coat the stoma ch SUCRALFATE 28621862672 No Longer Active Baltazar Childers MD Active PEN NEEDLES 31G X 6 MM use 1 daily INSULIN PEN NE EDLE 21446658055 Active KENDALL Juarez Active TOUONOFRE SOLOSTAR 300 UNIT/ML SUBCUTANEOUS SOLUTION PEN- INJECTOR 10 units SC daily INSULIN GLARGINE 69081429465 No Longer Active Rola ARGUETA Active NAPROXEN SODIUM 220 MG ORAL TABLET 1 three times a day as needed NAPROXEN SODIUM 35053071554 No Longer Active Baltazar Childers MD Active ATORVASTATIN CALCIUM 20 MG ORAL TABLET Take 1 tab daily ATORVASTATIN CALCIUM 34042236911 Active Baltazar Childers MD A ctive FUROSEMIDE 40 MG ORAL TABLET Take one by mouth daily FUROSEMIDE 54260486012 Active Baltazar Childers MD Active LISINOPRIL 20 MG ORAL TABLET Take one by mouth daily at bedtime LISINOPRIL 71325233919 No Longer Active Baltazar Childers MD Active ONETOUCH ULTRA BLUE IN VITRO STRIP Test twice a day 07/11/11 GLUCOSE BLOOD 05251610135 No Longer Active Baltazar Childers MD Acti ve TRUEPLUS LANCETS 33G Test twice a day LANCETS 9348043 8291 Active KENDALL Juarez Active TRUEDRAW LANCING DEVICE Test twice a day LANCET DEVICES 85555549930 Active Baltazar Childers MD Active TRUETRACK BLOOD GLUCOSE w/Device KIT Test twice a day BLOOD GLUCOSE MONITORING SUPPL 67191328889 Active Baltazar Childers MD Activ e HYDROCODONE-ACETAMINOPHEN 7.5-325 MG ORAL TABLET Take 1 tab every 6-8 hours PRN HYDROCODONE-ACETAMINOPHEN 93330834733 Active Baltazar Nickerson MD Active GABAPENTIN 300 MG ORAL CAPSULE 1 po qd x 2 days, then 1 po BID x 2 days, then 1 po TID GABAPENTIN 84093031580 No Longer Active Baltazar Childers MD Active NAPROXEN 500 MG ORAL TABLET 1 tablet by mouth twice daily NAPROXEN 92860802955 No Longer Active Baltazar Childers MD Active PROAIR HFA 108 (90 Base) MCG/ACT INHALATION AEROSOL SO LUTION 2 puffs four times a day as needed ALBUTEROL SULFATE 06958186676 Active Shun Arellano LPN Active DEPO-TESTOSTERONE 200 MG/ML INTRAMUSCULAR SOLUTION as directed TESTOSTERONE CYPIONATE 60591980151 No Longer Active Baltazar Childers MD Active LIPITOR 20 MG ORAL TABLET Take one by mouth daily in evening ATORVASTATIN CALCIUM 70853274944 No Longer Active Baltazar Childers MD Active CRESTOR 10 MG ORAL TABLET 1 by mouth every day ROSUVASTATIN CALCIUM 42378664450 No Longer Active Baltazar Childers MD Active PHENTERMINE HCL 37.5 MG ORAL TABLET Take one by mouth daily PHENTERMINE HCL 27137846143 No Longer Active Baltazar Childers MD Ac tive TIZANIDINE HCL 4 MG ORAL TABLET 1 daily as needed for muscle spa sm TIZANIDINE HCL 42661087844 No Longer Active Dawna Salazar RN Active [id number] 50-325-40 MG ORAL TABLET 1 fo ur times a day as needed for heacache [id number] 38615431328 Active KENDALL Juarez Active SUMATRIPTAN SUCCINATE 100 MG ORAL TABLET 1 tablet by m outh at onset of migraine as needed SUMATRIPTAN SUCCINATE 03296581443 Active Baltazar Nickerson MD Active LORATADINE 10 MG ORAL TABLET Take one by mouth daily LORATADINE 06653588329 Active Baltazar Childers MD Active OMEPRAZOLE 20 MG ORAL CAPSULE DELAYED RELEASE Take one by mouth jostin ly OMEPRAZOLE 27343304959 Active Baltazar Childers MD Active HYDROXYZINE HCL 25 MG ORAL TABLET Take one by mouth daily HYDROXYZINE HCL 44613353318 Active Baltazar Childers MD Active ALPRAZOLAM 1 MG ORAL TABLET 1 tablet by mouth daily at bedti nc for restless leg ALPRAZOLAM 93547516549 Active Baltazar Childers MD Active METFORMIN HCL 1000 MG ORAL TABLET Take one by mouth twice daily METFORMIN HCL 84119447403 Active Baltazar Childers MD Active TIZANIDINE HCL 4 MG ORAL TABLET 1 daily as needed for muscle spa sm TIZANIDINE HCL 4 MG ORAL TABLET 373181 TIZANIDINE HCL Inactive PHENTERMINE HCL 37.5 MG ORAL TABLET Take one by mouth daily PHENTERMINE HCL 37.5 MG ORAL TABLET 382905 PHENTERMINE HCL Inac tive CRESTOR 10 MG ORAL TABLET 1 by mouth every day CRESTOR 10 MG ORAL TABLET 393891 ROSUVASTATIN CALCIUM Inactive LIPITOR 20 MG ORAL TABLET Take one by mouth daily in evening LIPITOR 20 MG ORAL TABLET 624945 ATORVASTATIN CALCIUM Inactive DEPO-TESTOSTERONE 200 MG/ML INTRAMUSCULAR SOLUTION as directed DEPO-TESTOSTERONE 200 MG/ML INTRAMUSCULAR SOLUTION 8880303 RUFINO TOSTERONE CYPIONATE Inactive NAPROXEN 500 MG ORAL TABLET 1 tablet by mouth twice daily NAPROXEN 500 MG ORAL TABLET 621110 NAPROXEN Inactive GABAPENTIN 300 MG ORAL CAPSULE 1 po qd x 2 days, then 1 po BID x 2 days, then 1 po TID GABAPENTIN 300 MG ORAL CAPSULE 962257 GABAP ENTIN Inactive ONETOUCH ULTRA BLUE IN VITRO STRIP Test twice a day 07/11/11 ONETOUCH ULTRA BLUE IN VITRO STRIP GLUCOSE BLOOD Inact amie NAPROXEN SODIUM 220 MG ORAL TABLET 1 three times a day as needed NAPROXEN SODIUM 220 MG ORAL TABLET 89284796749 NAPROXEN SODI UM Inactive TOUJEO SOLOSTAR 300 UNIT/ML SUBCUTANEOUS SOLUTION PEN- INJECTOR 10 units SC daily TOUJEO SOLOSTAR 300 UNIT/ML SUBCUTANEOUS SOLUTION PEN-INJECTOR INSULIN GLARGINE Inactive SUCRALFATE 1 GM ORAL TABLET 1 four times a day to coat the stoma ch SUCRALFATE 1 GM ORAL TABLET 271241 SUCRALFATE Inac tive GABAPENTIN 300 MG ORAL CAPSULE 1 three times a day 201 12/03/26 GABAPENTIN 300 MG ORAL CAPSULE 555066 GABAPENTIN Inactive TRAMADOL HCL 50 MG ORAL TABLET 1 twice a day as needed for pain TRAMADOL HCL 50 MG ORAL TABLET 557898 TRAMADOL HCL I nactive ZITHROMAX Z-ISAIAS 250 MG ORAL TABLET Take two tablets to day and then 1 tablet daily for 4 days ZITHROMAX Z-ISAIAS 250 MG ORAL TAB LET 043458 AZITHROMYCIN Inactive Immunizations Vaccine Administration Date Value Standard Floyd cription influenza immunization (Flu Vax) has been administered 05/11 Done according to patient influenza virus vaccine, unspecified for mulation pneumococcal immunization administered Pneumovax 23 [CVX33] pneumococcal polysaccharide vaccine, 23 valent Seasonal influenza vaccine, injectable, containing preservative, for > 3 years old (Afluria, FluLaval, Fluzone, Fluvirin, Fluarix, Agriflu(>= 18 yo)) Fluzone (>3 yrs.) [[id number]] Influenza, seasonal, inject able Seasonal influenza vaccine, injectable, containing preservative, for > 3 years old (Afluria, FluLaval, Fluzone, Fluvirin, Fluarix, Agriflu(>= 18 yo)) Fluzone (>3 yrs.) [[id number]] Influenza, seasonal, inject able Vital Signs Date Name Value Unit Range Description blood pressure, diastolic, repeated by physician 68 [...] weight E&M 227 [lb_av] Weight Measure d blood pressure, diastolic 83 mm[Hg] BP [place] blood pressure, systolic 129 mm[Hg] BP sys height E&M 66.5 [in_us] Bdy height pulse rate E&M 101 /min Heart rate temperature E&M 98.0 [degF] Body temp erature weight E&M 230 [lb_av] Weight Measure d blood pressure, diastolic, repeated by physician 72 BP [place] blood pressure, diastolic 72 mm[Hg] BP [place] blood pressure, systolic, repeated by physician 100 BP sys blood pressure, systolic 100 mm[Hg] BP sys height E&M 66.5 [in_us] Bdy height pulse rate E&M 106 /min Heart rate temperature E&M 97.6 [degF] Body temp erature weight E&M 235 [lb_av] Weight Measure d Diagnostic Results Date Name Value Unit Range Description Lab Report: Basic Metabolic Panel - Chem istry sodium, serum 136 mmol/L 101-249 3474/06/04 potassium, serum 4.9 mmol/L 3.5-5.2 chloride, serum 97 mmol/L 98-107 carbon dioxide, venous blood 35.3 mmol/L 21.0-32 .0 blood glucose 239 mg/dL 65-95 calcium, serum 10.6 mg/dL 8.5-10.1 urea nitrogen, blood 31 mg/dL 7-18 creatinine, serum 2.33 mg/dL 0.60-1.30 Estimated Glomerular Filtration Rate (calc) 23 (?) mL/min/1.73m2 = OR > 60 mL/min sodium, serum 141 mmol/L 446-621 4773/07/09 potassium, serum 4.9 mmol/L 3.5-5.2 chloride, serum 103 mmol/L 98-107 carbon dioxide, venous blood 35.1 mmol/L 21.0-32 .0 blood glucose 203 mg/dL 65-95 calcium, serum 9.8 mg/dL 8.5-10.1 urea nitrogen, blood 13 mg/dL 7-18 creatinine, serum 1.76 mg/dL 0.60-1.30 Estimated Glomerular Filtration Rate (calc) 31 (?) mL/min/1.73m2 = OR > 60 mL/min Lab Report: HGBA1C - Chemistry hemoglobin A1C, blood, as % of total hemoglobin 7.4 % 4.3-6.0 hemoglobin A1C, blood, as % of total hemoglobin 8.0 % 4.3-6.0 Lab Report: HGBA1C, CBC, Comp. Metabolic Panel, Cholesterol, Triglycerid ... - Chemistry calcium, serum 9.2 mg/dL 8.5-10.1 bilirubin, serum, total 0.40 mg/dL 0.00-1.00 cholesterol, serum 218 mg/dL 247-147 8108/12/18 triglyceride, serum, fasting 357 mg/dL 30-200 HDL cholesterol, serum 49 mg/dL 32-60 LDL cholesterol, serum 103.00 mg/dL 5.00-130.00 hemoglobin A1C, blood, as % of total hemoglobin 8.5 % 4.3-6.0 sodium, serum 142 mmol/L 125-749 6816/12/18 carbon dioxide, venous blood 32.5 mmol/L 21.0-32 .0 potassium, serum 4.4 mmol/L 3.5-5.2 chloride, serum 101 mmol/L 98-107 blood glucose 150 mg/dL 65-95 urea nitrogen, blood 18 mg/dL 7-18 creatinine, serum 1.74 mg/dL 0.60-1.30 Estimated Glomerular Filtration Rate (calc) 32 (?) mL/min/1.73m2 = OR > 60 mL/min alanine aminotransferase (SGPT), serum 37 U/L 12-78 aspartate aminotransferase (SGOT), serum 17 U/L 15-37 Lab Report: HGBA1C, CBC, Comp. Metabolic Panel, Cholesterol, Triglycerid ... - Hematology leukocyte count, blood 6.8 10^3/MM^3 10*3/mm3 4.6-10.2 erythrocyte (RBC) count 4.09 10^6/MM^3 10*6/mm3 3.80-5.8 0 hemoglobin, blood 12.0 g/dL 12.0-16.0 hematocrit, blood 38.0 % 37.0-47.0 mean corpuscular volume, RBC 93 fL 80-97 mean corpuscular hemoglobin, RBC 29.4 pg 27. 0-31.2 mean corpuscular hemoglobin concentration, RBC 31.6 G/DL % 31.8-35.4 red blood cell distribution width 13.1 % 11 .6-14.8 platelet count 326 10^3/MM^3 10*3/mm3 142-424 Lab Report: HGBA1C, CBC, Comp. Metabolic Panel, Cholesterol, Triglycerid ... - Lab Alkaline phosphatase 63 50-136 Lab Report: Thyroid Stimulating Hormone (L) - Chemistry TSH 8.56 m[iU]/mL 0.36-3.74 Office Visit: pap., tumor - Toxicology drug screen, urine, qualitative Ordered Encounters Code Encounter Date Provider Facility CPT-42772 [id number] Vst-Est Level V 14:28:39 CDT Aneudy Childers MD [facility] CPT-98680 11201-Kto Vst-Est Level IV 15:03:32 CDT Charlie Childers MD [facility] CPT-33270 71274-Xos Vst-Est Level III 15:51:57 CDT Baltazar Childers MD [facility] CPT-72621 13092-Psr Vst-Est Level IV 15:14:58 CDT Charlie Childers MD [facility]-51744 06135-Kev Vst-Est Level IV 15:12:52 [employer] Charlie Childers MD [facility] CPT-38063 53294-Fcp Vst-Est Level IV 15:30:55 [employer] Charlie Childers MD [facility] CPT-60823 92966-Adu Vst-Est Level IV 13:49:06 C DT Ann Martinez [facility] CPT-25887 Level 4 Est. Patient 17:26:08 CDT Ann trujillo [facility] CPT-52323 11286-Mcc Vst-Est Level V 14:26:27 CDT Aneudy Childers MD [facility] CPT-33704 Level 4 Est. Patient 17:05:37 CDT Baltazar Childers MD [facility] CPT-02089 Level 4 Est. Patient 16:21:19 [employer] Baltazar Childers MD [facility] CPT-92249 Level 4 Est. Patient 12:25:11 CDT Baltazar Childers MD [facility] CPT-55314 Level 4 Est. Patient 14:22:31 CDT Baltazar Childers MD [facility] CPT-65122 Level 4 Est. Patient 15:44:38 CDT Shonna Parker APRN [facility] CPT-65237 Level 4 Est. Patient 11:34:17 CDT Baltazar Childers MD [facility] CPT-56002 Level 3 Est. Patient 16:40:40 CDT Baltazar Childers MD [facility] CPT-10233 Level 4 Est. Patient 10:41:24 CDT Baltazar Childers MD [facility] CPT-69200 Level 4 Est. Patient 16:01:48 CDT Baltazar Childers MD [facility] CPT-92237 Level 4 Est. Patient 16:54:07 [employer] Baltazar Childers MD [facility] CPT-75643 Level 4 Est. Patient 15:42:12 CDT Baltazar Childers MD [facility] CPT-19953 Level 4 Est. Patient 11:29:55 CDT Baltazar Childers MD [facility] CPT-13514 Level 4 Est. Patient 14:15:19 CDT Baltazar Childers MD [facility] CPT-25280 Level 4 Est. Patient 12:20:13 CDT Baltazar Childers MD [facility] CPT-91650 Level 4 Est. Patient 14:52:45 [employer] Baltazar Childers MD [facility] CPT-06046 Level 4 Est. Patient 14:18:34 [employer] Baltazar Childers MD [facility] CPT-79114 Level 4 Est. Patient 15:18:29 CDT Baltazar Childers MD [facility] CPT-75528 Level 3 Est. Patient 12:45:34 CDT Baltazar Childers MD [facility] CPT-15758 Level 3 Est. Patient 10:10:11 CDT Baltazar Childers MD [facility] CPT-03661 Level 3 Est. Patient 14:07:50 CDT Baltazar Childers MD [facility] CPT-37485 Level 4 Est. Patient 12:26:10 [employer] Baltazar Childers MD [facility] CPT-61308 Level 4 Est. Patient 14:45:38 CDT Baltazar Childers MD [facility] CPT-78712 Level 4 New Patient 12:30:48 CDT Baltazar hinton MD [facility] Procedures Code Procedure Name Date Entry Date Standard Desc ription CPT-12217 4M Drug Screen cup test, Multi-panel, urine 2018 14:28:39 CDT CPT-17876 Venipuncture Draw Fee 15:19:00 CDT CPT-000 Give Appropriate Flu Vaccine 12:25:14 CDT 2 CPT-43498 First Vx - Ix admin via ID I M or jet injects without counseling by physician 13:08:59 CDT CPT-20669 Fluzone Quadrivalent Intramuscular Suspe nsion 0.5 ML 13:08:59 CDT CPT-08973 Venipuncture Draw Fee 12:04:12 CDT CPT-15941 Lipid - LAB USE ONLY 17:39:15 [employer] 9 CPT-68950 HGBA1C - LAB USE ONLY 17:39:15 [employer] CPT-23767 CMP - LAB USE ONLY 17:39:14 [employer] CPT-63069 Venipuncture Draw Fee 17:39:14 [employer] CPT-67582 First Vx - Ix admin via ID I M or jet injects without counseling by physician 16:55:17 [employer] CPT-95451 Fluzone Quadrivalent Intramuscular Suspe nsion 0.5 ML 16:55:17 [employer] CPT-36813 Renal Panel - LAB USE ONLY 17:39:20 CDT 201 10/31/07 CPT-94233 CBC - LAB USE ONLY 17:39:20 CDT CPT-38070 Venipuncture Draw Fee 17:39:20 CDT CPT-84852 Venipuncture Draw Fee 14:33:30 CDT CPT-51428 Renal Panel - LAB USE ONLY 14:33:30 CDT 201 10/31/07 CPT-65827 CBC - LAB USE ONLY 14:33:29 CDT CPT-79739 Venipuncture Draw Fee 14:50:21 [employer] CPT-47705 Immunization Single Admin 17:35:35 CDT 2014 CPT-57843 Fluzone Quadrivalent preservative free ( >=3yrs.) 17:35:35 CDT CPT-06558 Venipuncture Draw Fee 12:10:27 [employer] CPT-63591 Fluzone Quadrivalent Intramuscular Suspe nsion 0.5 ML 10:49:13 CDT CPT-11898 First Vx Component - Ix admi n via ID IM or jet inj without physician counseling 15:17:19 [employer] CPT-09691 Pneumovax 23 15:17:19 [employer] CPT-42115 Pneumovax 14:52:45 [employer] CPT-52084 Venipuncture Draw Fee 14:06:30 [employer] CPT-000 Give Appropriate Flu Vaccine 14:18:34 [employer] 2 CPT-60014 Administration single or combination vac cine inc oral 14:46:00 [employer] CPT-97343 Influenza split virus > age 3 14:46:00 [employer] CPT-OV Office Visit 19:13:16 CDT CPT-78787 Zostavax 18:41:56 CDT CPT-79209 Administration single or combination vac cine inc oral 12:56:39 CDT CPT-60435 Zoster Vaccine (Zostavax) 12:56:39 CDT 2012 CPT-84818 Venipuncture Draw Fee 10:58:57 CDT CPT-85098 Sono pelvis non OB uterus ovaries cervix 17:45:04 CDT CPT-83500 Sono retroperitoneal complete kidneys an d bladder 17:14:36 CDT CPT-OV Office Visit 14:59:38 [employer] CPT-J1070 Depo Testosterone 100 mg 14:50:13 CDT 03/05 CPT-79902 Abx/Therapy Injection 14:50:13 CDT CPT-49700 Administration single or combination vac cine inc oral 14:34:43 CDT CPT-76557 Influenza split virus > age 3 14:34:43 CDT CPT-J1070 Depo Testosterone 100 mg 17:37:13 CDT 01/11 CPT-07968 Abx/Therapy Injection 17:37:13 CDT CPT-33910 Venipuncture Draw Fee 16:30:13 CDT CPT-30895 Venipuncture Draw Fee 16:29:43 CDT CPT-J1070 Depo Testosterone 100 mg 14:45:38 CDT 01/11
--- OUTSIDE RECORDS SUMMARY | 2019-10-27 11:35 | XMS REPORT | Clinical Summary ---
Author Author Admin, Elba [facility] Address Unknown Phone Unavailable Allergies, [...] ronary atherosclerosis of unspecified type of vessel, [place] or graft OTH NONSPC ABN FINDNG RAD&OTH [...] and 13 units at night INSULIN GLARGINE 24708053445 Active Baltazar Childers MD Active ONGLYZA 2.5 MG ORAL TABLET 1 daily for diabetes SAXAGLIPTIN HCL 04831916957 Active Baltazar Childers MD Active TRAMADOL HCL 50 MG ORAL TABLET 1 twice a day as needed for pain TRAMADOL HCL 78660886958 No Longer Active Baltazar Childers MD Active ROBAXIN 500 MG ORAL TABLET Take 1.5 (one and one half) tabs once daily METHOCARBAMOL 35149269809 Active Baltazar Childers MD Active SYNTHROID 112 MCG ORAL TABLET Take one tablet a day LEVOTHYROXINE SODIUM 39549553374 Active Baltazar Childers MD Active TRUE METRIX AIR GLUCOSE METER DEVICE Use as directed BLOOD GLUCOSE MONITORING SUPPL 75502024376 Active Baltazar Childers MD Activ e TRUE METRIX BLOOD GLUCOSE TEST IN VITRO STRIP test blood sug ar BID Dx: E11.65 GLUCOSE BLOOD 05155138978 Active KENDALL Juarez Active NORTRIPTYLINE HCL 50 MG ORAL CAPSULE 1 twice a day for neuropathy 2 NORTRIPTYLINE HCL 87410299745 Active Baltazar Childers MD Acti ve ASPIRIN 81 MG TBEC Take one (1) tablet by mouth daily ASPIRIN 66458666882 Active Baltazar Childers MD Active GABAPENTIN 300 MG ORAL CAPSULE 1 three times a day 201 12/03/26 GABAPENTIN 86706805344 No Longer Active Baltazar Childers MD Activ e LISINOPRIL 20 MG ORAL TABLET 1 tablet by mouth daily at night 2016 LISINOPRIL 30637614376 Active Baltazar Childers MD Active ZITHROMAX Z-ISAIAS 250 MG ORAL TABLET Take two tablets to day and then 1 tablet daily for 4 days AZITHROMYCIN 88885244048 No Longer A ctive Baltazar Childers MD Active AMLODIPINE BESYLATE 5 MG ORAL TABLET 1 tab daily for HTN AMLODIPINE BESYLATE 66949972887 Active Baltazar Childers MD Active GLIPIZIDE 10 MG ORAL TABLET take 2 tablets twice daily GLIPIZIDE 86945121064 Active Baltazar Childers MD Active SUCRALFATE 1 GM ORAL TABLET 1 four times a day to coat the stoma ch SUCRALFATE 03439641030 No Longer Active Baltazar Childers MD Active PEN NEEDLES 31G X 6 MM use 1 daily INSULIN PEN NE EDLE 68343968093 Active KENDALL Juarez Active TOUONOFRE SOLOSTAR 300 UNIT/ML SUBCUTANEOUS SOLUTION PEN- INJECTOR 10 units SC daily INSULIN GLARGINE 81596856509 No Longer Active Rola ARGUETA Active NAPROXEN SODIUM 220 MG ORAL TABLET 1 three times a day as needed NAPROXEN SODIUM 00662097744 No Longer Active Baltazar Childers MD Active ATORVASTATIN CALCIUM 20 MG ORAL TABLET Take 1 tab daily ATORVASTATIN CALCIUM 85659609336 Active Baltazar Childers MD A ctive FUROSEMIDE 40 MG ORAL TABLET Take one by mouth daily FUROSEMIDE 27216801384 Active Baltazar Childers MD Active LISINOPRIL 20 MG ORAL TABLET Take one by mouth daily at bedtime LISINOPRIL 00027398197 No Longer Active Baltazar Childers MD Active ONETOUCH ULTRA BLUE IN VITRO STRIP Test twice a day 07/11/11 GLUCOSE BLOOD 19723513001 No Longer Active Baltazar Childers MD Acti ve TRUEPLUS LANCETS 33G Test twice a day LANCETS 9178275 7065 Active KENDALL Juarez Active TRUEDRAW LANCING DEVICE Test twice a day LANCET DEVICES 62787104687 Active Baltazar Childers MD Active TRUETRACK BLOOD GLUCOSE w/Device KIT Test twice a day BLOOD GLUCOSE MONITORING SUPPL 41550202594 Active Baltazar Childers MD Activ e HYDROCODONE-ACETAMINOPHEN 7.5-325 MG ORAL TABLET Take 1 tab every 6-8 hours PRN HYDROCODONE-ACETAMINOPHEN 27580092490 Active Baltazar Nickerson MD Active GABAPENTIN 300 MG ORAL CAPSULE 1 po qd x 2 days, then 1 po BID x 2 days, then 1 po TID GABAPENTIN 28599662541 No Longer Active Baltazar Childers MD Active NAPROXEN 500 MG ORAL TABLET 1 tablet by mouth twice daily NAPROXEN 16287701400 No Longer Active Baltazar Childers MD Active PROAIR HFA 108 (90 Base) MCG/ACT INHALATION AEROSOL SO LUTION 2 puffs four times a day as needed ALBUTEROL SULFATE 34944427934 Active Shun Arellano LPN Active DEPO-TESTOSTERONE 200 MG/ML INTRAMUSCULAR SOLUTION as directed TESTOSTERONE CYPIONATE 82080384562 No Longer Active Baltazar Childers MD Active LIPITOR 20 MG ORAL TABLET Take one by mouth daily in evening ATORVASTATIN CALCIUM 04503928099 No Longer Active Baltazar Childers MD Active CRESTOR 10 MG ORAL TABLET 1 by mouth every day ROSUVASTATIN CALCIUM 78357563701 No Longer Active Baltazar Chiledrs MD Active PHENTERMINE HCL 37.5 MG ORAL TABLET Take one by mouth daily PHENTERMINE HCL 71350339582 No Longer Active Baltazar Childers MD Ac tive TIZANIDINE HCL 4 MG ORAL TABLET 1 daily as needed for muscle spa sm TIZANIDINE HCL 27393276440 No Longer Active Dawna Salazar RN Active [id number] 50-325-40 MG ORAL TABLET 1 fo ur times a day as needed for heacache [id number] 55566536537 Active KENDALL Juarez Active SUMATRIPTAN SUCCINATE 100 MG ORAL TABLET 1 tablet by m outh at onset of migraine as needed SUMATRIPTAN SUCCINATE 93706047768 Active Baltazar Nickerson MD Active LORATADINE 10 MG ORAL TABLET Take one by mouth daily LORATADINE 75605672968 Active Baltazar Childers MD Active OMEPRAZOLE 20 MG ORAL CAPSULE DELAYED RELEASE Take one by mouth jostin ly OMEPRAZOLE 53734615847 Active Baltazar Childers MD Active HYDROXYZINE HCL 25 MG ORAL TABLET Take one by mouth daily HYDROXYZINE HCL 48232650106 Active Baltazar Childers MD Active ALPRAZOLAM 1 MG ORAL TABLET 1 tablet by mouth daily at bedti nc for restless leg ALPRAZOLAM 62622928694 Active Baltazar Childesr MD Active METFORMIN HCL 1000 MG ORAL TABLET Take one by mouth twice daily METFORMIN HCL 01126954741 Active Baltazar Childers MD Active TIZANIDINE HCL 4 MG ORAL TABLET 1 daily as needed for muscle spa sm TIZANIDINE HCL 4 MG ORAL TABLET 197561 TIZANIDINE HCL Inactive PHENTERMINE HCL 37.5 MG ORAL TABLET Take one by mouth daily PHENTERMINE HCL 37.5 MG ORAL TABLET 001718 PHENTERMINE HCL Inac tive CRESTOR 10 MG ORAL TABLET 1 by mouth every day CRESTOR 10 MG ORAL TABLET 234204 ROSUVASTATIN CALCIUM Inactive LIPITOR 20 MG ORAL TABLET Take one by mouth daily in evening LIPITOR 20 MG ORAL TABLET 961580 ATORVASTATIN CALCIUM Inactive DEPO-TESTOSTERONE 200 MG/ML INTRAMUSCULAR SOLUTION as directed DEPO-TESTOSTERONE 200 MG/ML INTRAMUSCULAR SOLUTION 4599028 RUFINO TOSTERONE CYPIONATE Inactive NAPROXEN 500 MG ORAL TABLET 1 tablet by mouth twice daily NAPROXEN 500 MG ORAL TABLET 926975 NAPROXEN Inactive GABAPENTIN 300 MG ORAL CAPSULE 1 po qd x 2 days, then 1 po BID x 2 days, then 1 po TID GABAPENTIN 300 MG ORAL CAPSULE 275281 GABAP ENTIN Inactive ONETOUCH ULTRA BLUE IN VITRO STRIP Test twice a day 07/11/11 ONETOUCH ULTRA BLUE IN VITRO STRIP GLUCOSE BLOOD Inact amie NAPROXEN SODIUM 220 MG ORAL TABLET 1 three times a day as needed NAPROXEN SODIUM 220 MG ORAL TABLET 55127323374 NAPROXEN SODI UM Inactive TOUJEO SOLOSTAR 300 UNIT/ML SUBCUTANEOUS SOLUTION PEN- INJECTOR 10 units SC daily TOUJEO SOLOSTAR 300 UNIT/ML SUBCUTANEOUS SOLUTION PEN-INJECTOR INSULIN GLARGINE Inactive SUCRALFATE 1 GM ORAL TABLET 1 four times a day to coat the stoma ch SUCRALFATE 1 GM ORAL TABLET 443010 SUCRALFATE Inac tive GABAPENTIN 300 MG ORAL CAPSULE 1 three times a day 201 12/03/26 GABAPENTIN 300 MG ORAL CAPSULE 001950 GABAPENTIN Inactive TRAMADOL HCL 50 MG ORAL TABLET 1 twice a day as needed for pain TRAMADOL HCL 50 MG ORAL TABLET 037616 TRAMADOL HCL I nactive ZITHROMAX Z-ISAIAS 250 MG ORAL TABLET Take two tablets to day and then 1 tablet daily for 4 days ZITHROMAX Z-ISAIAS 250 MG ORAL TAB LET 883377 AZITHROMYCIN Inactive Immunizations Vaccine Administration Date Value Standard Floyd cription influenza immunization (Flu Vax) has been administered 05/11 Done according to patient influenza virus vaccine, unspecified for mulation pneumococcal immunization administered Pneumovax 23 [CVX33] pneumococcal polysaccharide vaccine, 23 valent Seasonal influenza vaccine, injectable, containing preservative, for > 3 years old (Afluria, FluLaval, Fluzone, Fluvirin, Fluarix, Agriflu(>= 18 yo)) Fluzone (>3 yrs.) [[id number]] Influenza, seasonal, inject able Seasonal influenza vaccine, injectable, containing preservative, for > 3 years old (Afluria, FluLaval, Fluzone, Fluvirin, Fluarix, Agriflu(>= 18 yo)) Fluzone (>3 yrs.) [[id number]] Influenza, seasonal, inject able Vital Signs Date [...] - Chem istry sodium, serum 136 mmol/L 518-166 4723/06/04 potassium, serum 4.9 mmol/L 3.5-5.2 chloride, serum 97 mmol/L 98-107 carbon dioxide, venous blood 35.3 mmol/L 21.0-32 .0 blood glucose 239 mg/dL 65-95 calcium, serum 10.6 mg/dL 8.5-10.1 urea nitrogen, blood 31 mg/dL 7-18 creatinine, serum 2.33 mg/dL 0.60-1.30 Estimated Glomerular Filtration Rate (calc) 23 (?) mL/min/1.73m2 = OR > 60 mL/min sodium, serum 141 mmol/L 765-595 6918/07/09 potassium, serum 4.9 mmol/L 3.5-5.2 chloride, serum [...] 0.40 mg/dL 0.00-1.00 cholesterol, serum 218 mg/dL 309-814 2676/12/18 triglyceride, serum, fasting 357 mg/dL 30-200 HDL cholesterol, serum 49 mg/dL 32-60 LDL cholesterol, serum 103.00 mg/dL 5.00-130.00 hemoglobin A1C, blood, as % of total hemoglobin 8.5 % 4.3-6.0 sodium, serum 142 mmol/L 438-462 1829/12/18 carbon dioxide, venous blood 32.5 mmol/L 21.0-32 [...] Ordered Encounters Code Encounter Date Provider Facility CPT-76707 [id number] Vst-Est Level V 14:28:39 CDT Aneudy Childers MD [facility] CPT-49033 59742-Pew Vst-Est Level IV 15:03:32 CDT Charlie Childers MD [facility] CPT-00256 23642-Vgl Vst-Est Level III 15:51:57 CDT Baltazar Childers MD [facility] CPT-21164 20652-Oks Vst-Est Level IV 15:14:58 CDT Charlie Childers MD [facility]-42050 71697-Fgc Vst-Est Level IV 15:12:52 PREFORMING MACHINE OPERATOR Charlie Childers MD [facility] CPT-40151 77233-Zmq Vst-Est Level IV 15:30:55 PREFORMING MACHINE OPERATOR Charlie Childers MD [facility] CPT-34588 83233-Hyc Vst-Est Level IV 13:49:06 C DT Ann Martinez [facility] CPT-96604 Level 4 Est. Patient 17:26:08 CDT Ann trujillo [facility] CPT-37065 65045-Fqm Vst-Est Level V 14:26:27 CDT Aneudy Childers MD [facility] CPT-09869 Level 4 Est. Patient 17:05:37 CDT Baltazar Childers MD [facility] CPT-00349 Level 4 Est. Patient 16:21:19 PREFORMING MACHINE OPERATOR Baltazar Childers MD [facility] CPT-38989 Level 4 Est. Patient 12:25:11 CDT Baltazar Childers MD [facility] CPT-19288 Level 4 Est. Patient 14:22:31 CDT Baltazar Childers MD [facility] CPT-13032 Level 4 Est. Patient 15:44:38 CDT Shonna Parker APRN [facility] CPT-85801 Level 4 Est. Patient 11:34:17 CDT Baltazar Childers MD [facility] CPT-42406 Level 3 Est. Patient 16:40:40 CDT Baltazar Childers MD [facility] CPT-84800 Level 4 Est. Patient 10:41:24 CDT Baltazar Childers MD [facility] CPT-42304 Level 4 Est. Patient 16:01:48 CDT Baltazar Childers MD [facility] CPT-77964 Level 4 Est. Patient 16:54:07 PREFORMING MACHINE OPERATOR Baltazar Childers MD [facility] CPT-08958 Level 4 Est. Patient 15:42:12 CDT Baltazar Childers MD [facility] CPT-28644 Level 4 Est. Patient 11:29:55 CDT Baltazar Childers MD [facility] CPT-96181 Level 4 Est. Patient 14:15:19 CDT Baltazar Childers MD [facility] CPT-80572 Level 4 Est. Patient 12:20:13 CDT Baltazar Childers MD [facility] CPT-28216 Level 4 Est. Patient 14:52:45 PREFORMING MACHINE OPERATOR Baltazar Childers MD [facility] CPT-74288 Level 4 Est. Patient 14:18:34 PREFORMING MACHINE OPERATOR Baltazar Childers MD [facility] CPT-36073 Level 4 Est. Patient 15:18:29 CDT Baltazar Childers MD [facility] CPT-26204 Level 3 Est. Patient 12:45:34 CDT Baltazar Childers MD [facility] CPT-15876 Level 3 Est. Patient 10:10:11 CDT Baltazar Childers MD [facility] CPT-66422 Level 3 Est. Patient 14:07:50 CDT Baltazar Childers MD [facility] CPT-36528 Level 4 Est. Patient 12:26:10 PREFORMING MACHINE OPERATOR Baltazar Childers MD [facility] CPT-82444 Level 4 Est. Patient 14:45:38 CDT Baltazar Childers MD [facility] CPT-11223 Level 4 New Patient 12:30:48 CDT Baltazar hinton MD [facility] Procedures Code Procedure Name Date Entry Date Standard Desc ription CPT-58480 4M Drug Screen cup test, Multi-panel, urine 2018 14:28:39 CDT CPT-76292 Venipuncture Draw Fee 15:19:00 CDT CPT-000 Give Appropriate Flu Vaccine 12:25:14 CDT 2 CPT-65797 First Vx - Ix admin via ID I M or jet injects without counseling by physician 13:08:59 CDT CPT-58843 Fluzone Quadrivalent Intramuscular Suspe nsion 0.5 ML 13:08:59 CDT CPT-04627 Venipuncture Draw Fee 12:04:12 CDT CPT-36346 Lipid - LAB USE ONLY 17:39:15 PREFORMING MACHINE OPERATOR 9 CPT-64325 HGBA1C - LAB USE ONLY 17:39:15 PREFORMING MACHINE OPERATOR CPT-04794 CMP - LAB USE ONLY 17:39:14 PREFORMING MACHINE OPERATOR CPT-31676 Venipuncture Draw Fee 17:39:14 PREFORMING MACHINE OPERATOR CPT-07717 First Vx - Ix admin via ID I M or jet injects without counseling by physician 16:55:17 PREFORMING MACHINE OPERATOR CPT-81059 Fluzone Quadrivalent Intramuscular Suspe nsion 0.5 ML 16:55:17 PREFORMING MACHINE OPERATOR CPT-06907 Renal Panel - LAB USE ONLY 17:39:20 CDT 201 10/31/07 CPT-07354 CBC - LAB USE ONLY 17:39:20 CDT CPT-69184 Venipuncture Draw Fee 17:39:20 CDT CPT-86143 Venipuncture Draw Fee 14:33:30 CDT CPT-03220 Renal Panel - LAB USE ONLY 14:33:30 CDT 201 10/31/07 CPT-56569 CBC - LAB USE ONLY 14:33:29 CDT CPT-71303 Venipuncture Draw Fee 14:50:21 PREFORMING MACHINE OPERATOR CPT-34146 Immunization Single Admin 17:35:35 CDT 2014 CPT-43804 Fluzone Quadrivalent preservative free ( >=3yrs.) 17:35:35 CDT CPT-29255 Venipuncture Draw Fee 12:10:27 PREFORMING MACHINE OPERATOR CPT-45178 Fluzone Quadrivalent Intramuscular Suspe nsion 0.5 ML 10:49:13 CDT CPT-01154 First Vx Component - Ix admi n via ID IM or jet inj without physician counseling 15:17:19 PREFORMING MACHINE OPERATOR CPT-71801 Pneumovax 23 15:17:19 PREFORMING MACHINE OPERATOR CPT-34651 Pneumovax 14:52:45 PREFORMING MACHINE OPERATOR CPT-77100 Venipuncture Draw Fee 14:06:30 PREFORMING MACHINE OPERATOR CPT-000 Give Appropriate Flu Vaccine 14:18:34 PREFORMING MACHINE OPERATOR 2 CPT-50254 Administration single or combination vac cine inc oral 14:46:00 PREFORMING MACHINE OPERATOR CPT-43586 Influenza split virus > age 3 14:46:00 PREFORMING MACHINE OPERATOR CPT-OV Office Visit 19:13:16 CDT CPT-30989 Zostavax 18:41:56 CDT CPT-48478 Administration single or combination vac cine inc oral 12:56:39 CDT CPT-53095 Zoster Vaccine (Zostavax) 12:56:39 CDT 2012 CPT-46827 Venipuncture Draw Fee 10:58:57 CDT CPT-94994 Sono pelvis non OB uterus ovaries cervix 17:45:04 CDT CPT-63593 Sono retroperitoneal complete kidneys an d bladder 17:14:36 CDT CPT-OV Office Visit 14:59:38 PREFORMING MACHINE OPERATOR CPT-J1070 Depo Testosterone 100 mg 14:50:13 CDT 03/05 CPT-77511 Abx/Therapy Injection 14:50:13 CDT CPT-63479 Administration single or combination vac cine inc oral 14:34:43 CDT CPT-65153 Influenza split virus > age 3 14:34:43 CDT CPT-J1070 Depo Testosterone 100 mg 17:37:13 CDT 01/11 CPT-48583 Abx/Therapy Injection 17:37:13 CDT CPT-38163 Venipuncture Draw Fee 16:30:13 CDT CPT-45968 Venipuncture Draw Fee 16:29:43 CDT CPT-J1070 Depo Testosterone 100 mg 14:45:38 CDT 01/11
--- OUTSIDE RECORDS SUMMARY | 2019-10-27 11:35 | XMS REPORT | Clinical Summary ---
Author Author Admin, Elba [facility] [employer] Address Unknown Phone Unavailable Allergies, Adverse Reactions, [...] Morbid obesity due to excess calories 278.01 [facility] t Baltazar Childers MD Morbid obesity Obesity Class II (BMI 35-39.9) 278.01 Refinement 10/26 Baltazar Childers MD Morbid obesity Morbid obesity due to excess calories 278.01 [facility] t Baltazar Childers MD Morbid obesity Obesity [...] ronary atherosclerosis of unspecified type of vessel, picayune or graft OTH NONSPC ABN FINDNG RAD&OTH [...] Index 37.0-37.9, adult Screening mammogram V76.12 Active aBltazar bynum MD Other screening mammogram Sleep apnea 780.57 Active Baltazar Childers MD Unspecified sleep apnea Pharyngitis ICD-462 Inactive Baltazar Childers MD COLON POLYPS ICD-211.3 Inactive Lolis Bynum Medication List Medication Instructions Start Date Stop Date Generic Name NDC Status Provider Patient Instruction LANTUS SOLOSTAR 100 UNIT/ML SUBCUTANEOUS SOLUTION PEN- INJECTOR 20 units am and 13 units at night INSULIN GLARGINE 25650994015 Active Baltazar Childers MD Active ONGLYZA 2.5 MG ORAL TABLET 1 daily for diabetes SAXAGLIPTIN HCL 38227904243 Active Baltazar Childers MD Active TRAMADOL HCL 50 MG ORAL TABLET 1 twice a day as needed for pain TRAMADOL HCL 61961923392 No Longer Active Baltazar Childers MD Active ROBAXIN 500 MG ORAL TABLET Take 1.5 (one and one half) tabs once daily METHOCARBAMOL 56190497081 Active Baltazar Childers MD Active SYNTHROID 112 MCG ORAL TABLET Take one tablet a day LEVOTHYROXINE SODIUM 47440488809 Active Baltazar Childers MD Active TRUE METRIX AIR GLUCOSE METER DEVICE Use as directed BLOOD GLUCOSE MONITORING SUPPL 81053438251 Active Baltazar Childers MD Activ e TRUE METRIX BLOOD GLUCOSE TEST IN VITRO STRIP test blood sug ar BID Dx: E11.65 GLUCOSE BLOOD 66235642808 Active KENDALL Juarez Active NORTRIPTYLINE HCL 50 MG ORAL CAPSULE 1 twice a day for neuropathy 2 NORTRIPTYLINE HCL 23875753768 Active Baltazar Childers MD Acti ve ASPIRIN 81 MG TBEC Take one (1) tablet by mouth daily ASPIRIN 02095521252 Active Baltazar Childers MD Active GABAPENTIN 300 MG ORAL CAPSULE 1 three times a day 201 12/03/26 GABAPENTIN 98423278698 No Longer Active Baltazar Childers MD Activ e LISINOPRIL 20 MG ORAL TABLET 1 tablet by mouth daily at night 2016 LISINOPRIL 91032683710 Active Baltazar Childers MD Active ZITHROMAX Z-ISAIAS 250 MG ORAL TABLET Take two tablets to day and then 1 tablet daily for 4 days AZITHROMYCIN 73749824394 No Longer A ctive Baltazar Childers MD Active AMLODIPINE BESYLATE 5 MG ORAL TABLET 1 tab daily for HTN AMLODIPINE BESYLATE 78724827078 Active Baltazar Childers MD Active GLIPIZIDE 10 MG ORAL TABLET take 2 tablets twice daily GLIPIZIDE 21261695310 Active Baltazar Childers MD Active SUCRALFATE 1 GM ORAL TABLET 1 four times a day to coat the stoma ch SUCRALFATE 35703330255 No Longer Active Baltazar Childers MD Active PEN NEEDLES 31G X 6 MM use 1 daily INSULIN PEN NE EDLE 24923676629 Active KENDALL Juarez Active TOUONOFRE SOLOSTAR 300 UNIT/ML SUBCUTANEOUS SOLUTION PEN- INJECTOR 10 units SC daily INSULIN GLARGINE 28420515299 No Longer Active Rola ARGUETA Active NAPROXEN SODIUM 220 MG ORAL TABLET 1 three times a day as needed NAPROXEN SODIUM 83752952161 No Longer Active Baltazar Childers MD Active ATORVASTATIN CALCIUM 20 MG ORAL TABLET Take 1 tab daily ATORVASTATIN CALCIUM 88648387091 Active Baltazar Childers MD A ctive FUROSEMIDE 40 MG ORAL TABLET Take one by mouth daily FUROSEMIDE 29195933528 Active Baltazar Childers MD Active LISINOPRIL 20 MG ORAL TABLET Take one by mouth daily at bedtime LISINOPRIL 31565483274 No Longer Active Baltazar Childers MD Active ONETOUCH ULTRA BLUE IN VITRO STRIP Test twice a day 07/11/11 GLUCOSE BLOOD 24178133171 No Longer Active Baltazar Childers MD Acti ve TRUEPLUS LANCETS 33G Test twice a day LANCETS 1882950 7881 Active KENDALL Juarez Active TRUEDRAW LANCING DEVICE Test twice a day LANCET DEVICES 65032876170 Active Baltazar Childers MD Active TRUETRACK BLOOD GLUCOSE w/Device KIT Test twice a day BLOOD GLUCOSE MONITORING SUPPL 51702800016 Active Baltazar Childers MD Activ e HYDROCODONE-ACETAMINOPHEN 7.5-325 MG ORAL TABLET Take 1 tab every 6-8 hours PRN HYDROCODONE-ACETAMINOPHEN 34092496302 Active Baltazar Nickerson MD Active GABAPENTIN 300 MG ORAL CAPSULE 1 po qd x 2 days, then 1 po BID x 2 days, then 1 po TID GABAPENTIN 31740562442 No Longer Active Baltazar Childers MD Active NAPROXEN 500 MG ORAL TABLET 1 tablet by mouth twice daily NAPROXEN 40204042250 No Longer Active Baltazar Childers MD Active PROAIR HFA 108 (90 Base) MCG/ACT INHALATION AEROSOL SO LUTION 2 puffs four times a day as needed ALBUTEROL SULFATE 15370626543 Active Shun Arellano LPN Active DEPO-TESTOSTERONE 200 MG/ML INTRAMUSCULAR SOLUTION as directed TESTOSTERONE CYPIONATE 24435006573 No Longer Active Baltazar Childers MD Active LIPITOR 20 MG ORAL TABLET Take one by mouth daily in evening ATORVASTATIN CALCIUM 20039704419 No Longer Active Baltazar Childers MD Active CRESTOR 10 MG ORAL TABLET 1 by mouth every day ROSUVASTATIN CALCIUM 84463262836 No Longer Active Baltazar Childers MD Active PHENTERMINE HCL 37.5 MG ORAL TABLET Take one by mouth daily PHENTERMINE HCL 44028315676 No Longer Active Baltazar Childers MD Ac tive TIZANIDINE HCL 4 MG ORAL TABLET 1 daily as needed for muscle spa sm TIZANIDINE HCL 32091660926 No Longer Active Dawna Salazar RN Active [id number] 50-325-40 MG ORAL TABLET 1 fo ur times a day as needed for heacache [id number] 61161888092 Active KENDALL Juarez Active SUMATRIPTAN SUCCINATE 100 MG ORAL TABLET 1 tablet by m outh at onset of migraine as needed SUMATRIPTAN SUCCINATE 63017004530 Active Baltazar Nickerson MD Active LORATADINE 10 MG ORAL TABLET Take one by mouth daily LORATADINE 50211293095 Active Baltazar Childers MD Active OMEPRAZOLE 20 MG ORAL CAPSULE DELAYED RELEASE Take one by mouth jostin ly OMEPRAZOLE 28734812452 Active Baltazar Childers MD Active HYDROXYZINE HCL 25 MG ORAL TABLET Take one by mouth daily HYDROXYZINE HCL 44575857250 Active Baltazar Childers MD Active ALPRAZOLAM 1 MG ORAL TABLET 1 tablet by mouth daily at bedti sc for restless leg ALPRAZOLAM 47916909405 Active Baltazar Childers MD Active METFORMIN HCL 1000 MG ORAL TABLET Take one by mouth twice daily METFORMIN HCL 06559306372 Active Baltazar Childers MD Active TIZANIDINE HCL 4 MG ORAL TABLET 1 daily as needed for muscle spa sm TIZANIDINE HCL 4 MG ORAL TABLET 906128 TIZANIDINE HCL Inactive PHENTERMINE HCL 37.5 MG ORAL TABLET Take one by mouth daily PHENTERMINE HCL 37.5 MG ORAL TABLET 520735 PHENTERMINE HCL Inac tive CRESTOR 10 MG ORAL TABLET 1 by mouth every day CRESTOR 10 MG ORAL TABLET 788695 ROSUVASTATIN CALCIUM Inactive LIPITOR 20 MG ORAL TABLET Take one by mouth daily in evening LIPITOR 20 MG ORAL TABLET 313834 ATORVASTATIN CALCIUM Inactive DEPO-TESTOSTERONE 200 MG/ML INTRAMUSCULAR SOLUTION as directed DEPO-TESTOSTERONE 200 MG/ML INTRAMUSCULAR SOLUTION 1856694 RUFINO TOSTERONE CYPIONATE Inactive NAPROXEN 500 MG ORAL TABLET 1 tablet by mouth twice daily NAPROXEN 500 MG ORAL TABLET 347298 NAPROXEN Inactive GABAPENTIN 300 MG ORAL CAPSULE 1 po qd x 2 days, then 1 po BID x 2 days, then 1 po TID GABAPENTIN 300 MG ORAL CAPSULE 814719 GABAP ENTIN Inactive ONETOUCH ULTRA BLUE IN VITRO STRIP Test twice a day 07/11/11 ONETOUCH ULTRA BLUE IN VITRO STRIP GLUCOSE BLOOD Inact amie NAPROXEN SODIUM 220 MG ORAL TABLET 1 three times a day as needed NAPROXEN SODIUM 220 MG ORAL TABLET 99387019206 NAPROXEN SODI UM Inactive TOUJEO SOLOSTAR 300 UNIT/ML SUBCUTANEOUS SOLUTION PEN- INJECTOR 10 units SC daily TOUJEO SOLOSTAR 300 UNIT/ML SUBCUTANEOUS SOLUTION PEN-INJECTOR INSULIN GLARGINE Inactive SUCRALFATE 1 GM ORAL TABLET 1 four times a day to coat the stoma ch SUCRALFATE 1 GM ORAL TABLET 359933 SUCRALFATE Inac tive GABAPENTIN 300 MG ORAL CAPSULE 1 three times a day 201 12/03/26 GABAPENTIN 300 MG ORAL CAPSULE 342887 GABAPENTIN Inactive TRAMADOL HCL 50 MG ORAL TABLET 1 twice a day as needed for pain TRAMADOL HCL 50 MG ORAL TABLET 143058 TRAMADOL HCL I nactive ZITHROMAX Z-ISAIAS 250 MG ORAL TABLET Take two tablets to day and then 1 tablet daily for 4 days ZITHROMAX Z-ISAIAS 250 MG ORAL TAB LET 835949 AZITHROMYCIN Inactive Immunizations Vaccine Administration Date Value Standard Floyd cription influenza immunization (Flu Vax) has been administered 05/11 Done according to patient influenza virus vaccine, unspecified for mulation pneumococcal immunization administered Pneumovax 23 [CVX33] pneumococcal polysaccharide vaccine, 23 valent Seasonal influenza vaccine, injectable, containing preservative, for > 3 years old (Afluria, FluLaval, Fluzone, Fluvirin, Fluarix, Agriflu(>= 18 yo)) Fluzone (>3 yrs.) [[id number]] Influenza, seasonal, inject able Seasonal influenza vaccine, injectable, containing preservative, for > 3 years old (Afluria, FluLaval, Fluzone, Fluvirin, Fluarix, Agriflu(>= 18 yo)) Fluzone (>3 yrs.) [[id number]] Influenza, seasonal, inject able Vital Signs Date [...] - Chem istry sodium, serum 136 mmol/L 418-886 9398/06/04 potassium, serum 4.9 mmol/L 3.5-5.2 chloride, serum 97 mmol/L 98-107 carbon dioxide, venous blood 35.3 mmol/L 21.0-32 .0 blood glucose 239 mg/dL 65-95 calcium, serum 10.6 mg/dL 8.5-10.1 urea nitrogen, blood 31 mg/dL 7-18 creatinine, serum 2.33 mg/dL 0.60-1.30 Estimated Glomerular Filtration Rate (calc) 23 (?) mL/min/1.73m2 = OR > 60 mL/min sodium, serum 141 mmol/L 120-290 4607/07/09 potassium, serum 4.9 mmol/L 3.5-5.2 chloride, serum [...] 0.40 mg/dL 0.00-1.00 cholesterol, serum 218 mg/dL 761-372 5516/12/18 triglyceride, serum, fasting 357 mg/dL 30-200 HDL cholesterol, serum 49 mg/dL 32-60 LDL cholesterol, serum 103.00 mg/dL 5.00-130.00 hemoglobin A1C, blood, as % of total hemoglobin 8.5 % 4.3-6.0 sodium, serum 142 mmol/L 119-632 8491/12/18 carbon dioxide, venous blood 32.5 mmol/L 21.0-32 [...] Ordered Encounters Code Encounter Date Provider Facility CPT-67295 [id number] Vst-Est Level V 14:28:39 CDT Aneudy Childers MD [facility] CPT-69862 [id number] Vst-Est Level IV 15:03:32 CDT Charlie Childers MD [facility] CPT-40308 [id number] Vst-Est Level III 15:51:57 CDT Baltazar Childers MD [facility] CPT-89152 [id number] Vst-Est Level IV 15:14:58 CDT Charlie Childers MD [facility]-84289 [id number] Vst-Est Level IV 15:12:52 MESSENGER FLOORPERSON Charlie Childers MD [facility] CPT-37461 [id number] Vst-Est Level IV 15:30:55 MESSENGER FLOORPERSON Charlie Childers MD [facility] CPT-74227 [id number] Vst-Est Level IV 13:49:06 C DT Ann Martinez [facility] CPT-46436 Level 4 Est. Patient 17:26:08 CDT Ann trujillo [facility] CPT-08492 [id number] Vst-Est Level V 14:26:27 CDT Aneudy Childers MD [facility] CPT-34386 Level 4 Est. Patient 17:05:37 CDT Baltazar Childers MD [facility] CPT-49802 Level 4 Est. Patient 16:21:19 MESSENGER FLOORPERSON Baltazar Childers MD [facility] CPT-10984 Level 4 Est. Patient 12:25:11 CDT Baltazar Chidlers MD [facility] CPT-25856 Level 4 Est. Patient 14:22:31 CDT Baltazar Childers MD [facility] CPT-01200 Level 4 Est. Patient 15:44:38 CDT Shonna Parker APRN [facility] CPT-13558 Level 4 Est. Patient 11:34:17 CDT Baltazar Childers MD [facility] CPT-34466 Level 3 Est. Patient 16:40:40 CDT Baltazar Childers MD [facility] CPT-32238 Level 4 Est. Patient 10:41:24 CDT Baltazar Childers MD [facility] CPT-04442 Level 4 Est. Patient 16:01:48 CDT Baltazar Childers MD [facility] CPT-00989 Level 4 Est. Patient 16:54:07 MESSENGER FLOORPERSON Baltazar Childers MD [facility] CPT-75707 Level 4 Est. Patient 15:42:12 CDT Baltazar Childers MD [facility] CPT-93851 Level 4 Est. Patient 11:29:55 CDT Baltazar Childers MD [facility] CPT-04815 Level 4 Est. Patient 14:15:19 CDT Baltazar Childers MD [facility] CPT-35971 Level 4 Est. Patient 12:20:13 CDT Baltazar Childers MD [facility] CPT-11705 Level 4 Est. Patient 14:52:45 MESSENGER FLOORPERSON Baltazar Childers MD [facility] CPT-94758 Level 4 Est. Patient 14:18:34 MESSENGER FLOORPERSON Baltazar Childers MD [facility] CPT-72764 Level 4 Est. Patient 15:18:29 CDT Baltazar Childers MD [facility] CPT-11210 Level 3 Est. Patient 12:45:34 CDT Baltazar Childers MD [facility] CPT-33128 Level 3 Est. Patient 10:10:11 CDT Baltazar Childers MD [facility] CPT-22249 Level 3 Est. Patient 14:07:50 CDT Baltazar Childers MD [facility] CPT-77043 Level 4 Est. Patient 12:26:10 MESSENGER FLOORPERSON Baltazar Childers MD [facility] CPT-50799 Level 4 Est. Patient 14:45:38 CDT Baltazar Childers MD [facility] CPT-62861 Level 4 New Patient 12:30:48 CDT Baltazar hinton MD [facility] Procedures Code Procedure Name Date Entry Date Standard Desc ription CPT-07754 4M Drug Screen cup test, Multi-panel, urine 2018 14:28:39 CDT CPT-80020 Venipuncture Draw Fee 15:19:00 CDT CPT-000 Give Appropriate Flu Vaccine 12:25:14 CDT 2 CPT-45987 First Vx - Ix admin via ID I M or jet injects without counseling by physician 13:08:59 CDT CPT-87347 Fluzone Quadrivalent Intramuscular Suspe nsion 0.5 ML 13:08:59 CDT CPT-36773 Venipuncture Draw Fee 12:04:12 CDT CPT-03859 Lipid - LAB USE ONLY 17:39:15 MESSENGER FLOORPERSON 9 CPT-15881 HGBA1C - LAB USE ONLY 17:39:15 MESSENGER FLOORPERSON CPT-32745 CMP - LAB USE ONLY 17:39:14 MESSENGER FLOORPERSON CPT-84107 Venipuncture Draw Fee 17:39:14 MESSENGER FLOORPERSON CPT-75595 First Vx - Ix admin via ID I M or jet injects without counseling by physician 16:55:17 MESSENGER FLOORPERSON CPT-62444 Fluzone Quadrivalent Intramuscular Suspe nsion 0.5 ML 16:55:17 MESSENGER FLOORPERSON CPT-71994 Renal Panel - LAB USE ONLY 17:39:20 CDT 201 10/31/07 CPT-46226 CBC - LAB USE ONLY 17:39:20 CDT CPT-37777 Venipuncture Draw Fee 17:39:20 CDT CPT-07373 Venipuncture Draw Fee 14:33:30 CDT CPT-28963 Renal Panel - LAB USE ONLY 14:33:30 CDT 201 10/31/07 CPT-99325 CBC - LAB USE ONLY 14:33:29 CDT CPT-89985 Venipuncture Draw Fee 14:50:21 MESSENGER FLOORPERSON CPT-92698 Immunization Single Admin 17:35:35 CDT 2014 CPT-27195 Fluzone Quadrivalent preservative free ( >=3yrs.) 17:35:35 CDT CPT-11445 Venipuncture Draw Fee 12:10:27 MESSENGER FLOORPERSON CPT-01576 Fluzone Quadrivalent Intramuscular Suspe nsion 0.5 ML 10:49:13 CDT CPT-07601 First Vx Component - Ix admi n via ID IM or jet inj without physician counseling 15:17:19 MESSENGER FLOORPERSON CPT-20188 Pneumovax 23 15:17:19 MESSENGER FLOORPERSON CPT-59416 Pneumovax 14:52:45 MESSENGER FLOORPERSON CPT-73394 Venipuncture Draw Fee 14:06:30 MESSENGER FLOORPERSON CPT-000 Give Appropriate Flu Vaccine 14:18:34 MESSENGER FLOORPERSON 2 CPT-91926 Administration single or combination vac cine inc oral 14:46:00 MESSENGER FLOORPERSON CPT-03469 Influenza split virus > age 3 14:46:00 MESSENGER FLOORPERSON CPT-OV Office Visit 19:13:16 CDT CPT-10627 Zostavax 18:41:56 CDT CPT-11992 Administration single or combination vac cine inc oral 12:56:39 CDT CPT-16114 Zoster Vaccine (Zostavax) 12:56:39 CDT 2012 CPT-87968 Venipuncture Draw Fee 10:58:57 CDT CPT-08009 Sono pelvis non OB uterus ovaries cervix 17:45:04 CDT CPT-03153 Sono retroperitoneal complete kidneys an d bladder 17:14:36 CDT CPT-OV Office Visit 14:59:38 MESSENGER FLOORPERSON CPT-J1070 Depo Testosterone 100 mg 14:50:13 CDT 03/05 CPT-21509 Abx/Therapy Injection 14:50:13 CDT CPT-58029 Administration single or combination vac cine inc oral 14:34:43 CDT CPT-63351 Influenza split virus > age 3 14:34:43 CDT CPT-J1070 Depo Testosterone 100 mg 17:37:13 CDT 01/11 CPT-33987 Abx/Therapy Injection 17:37:13 CDT CPT-46747 Venipuncture Draw Fee 16:30:13 CDT CPT-25576 Venipuncture Draw Fee 16:29:43 CDT CPT-J1070 Depo Testosterone 100 mg 14:45:38 CDT 01/11
[2019-10-27 11:36] LABS: CREATININE SERUM 1.73 MG/DL (0.60-1.30)
--- OUTSIDE RECORDS SUMMARY | 2019-10-27 11:36 | XMS REPORT | Clinical Summary ---
Author Author Admin, Elba Lance [facility] Address Unknown Phone Unavailable Allergies, Adverse Reactions, [...] Morbid obesity due to excess calories 278.01 Refinemen t Baltazar Childers MD Morbid obesity Obesity Class II (BMI 35-39.9) 278.01 Refinement 10/26 Baltazar Childers MD Morbid obesity Morbid obesity due to excess calories 278.01 Active Baltazar Childers MD Morbid obesity ADD 314.00 Active Baltazar Childers MD Attention deficit disorder of childhood without mention of hyperactivity DECREASED LIBIDO 799.81 Active Baltazra Wayne Decreased libido COLON POLYPS 211.3 Resolved [...] ronary atherosclerosis of unspecified type of vessel, [place] or graft OTH NONSPC ABN FINDNG [...] stage III 585.3 Refinement 201 10/25/03 Elba Shelby RMA Chronic kidney disease, Stage III (moder ate) Chronic kidney disease, stage 3 585.3 Refinement 2018 Baltazar Childers MD Chronic kidney disease, Stage III (moder ate) Chronic kidney disease, stage 4 (severe) 585.3 Active Baltazar Childers MD Chronic kidney disease, Stage [...] Active Baltazar Childers MD Diabetes mellitus wi neurological manifestations, type II or unspecified type, [...] and 13 units at night INSULIN GLARGINE 89115009905 Active Baltazar Childers MD Active ONGLYZA 2.5 MG ORAL TABLET 1 daily for diabetes SAXAGLIPTIN HCL 83037365393 Active Baltazar Childers MD Active TRAMADOL HCL 50 MG ORAL TABLET 1 twice a day as needed for pain TRAMADOL HCL 06946391282 No Longer Active Baltazar Childers MD Active ROBAXIN 500 MG ORAL TABLET Take 1.5 (one and one half) tabs once daily METHOCARBAMOL 41366983040 Active Baltazar Childers MD Active SYNTHROID 112 MCG ORAL TABLET Take one tablet a day LEVOTHYROXINE SODIUM 04881120064 Active Baltazar Childers MD Active TRUE METRIX AIR GLUCOSE METER DEVICE Use as directed BLOOD GLUCOSE MONITORING SUPPL 13548289814 Active Baltazar Childers MD Activ e TRUE METRIX BLOOD GLUCOSE TEST IN VITRO STRIP test blood sug ar BID Dx: E11.65 GLUCOSE BLOOD 71427571807 Active KENDALL Juarez Active NORTRIPTYLINE HCL 50 MG ORAL CAPSULE 1 twice a day for neuropathy 2 NORTRIPTYLINE HCL 59783750798 Active Baltazar Childers MD Acti ve ASPIRIN 81 MG TBEC Take one (1) tablet by mouth daily ASPIRIN 44756624143 Active Baltazar Childers MD Active GABAPENTIN 300 MG ORAL CAPSULE 1 three times a day 201 12/03/26 GABAPENTIN 92851827813 No Longer Active Baltazar Childers MD Activ e LISINOPRIL 20 MG ORAL TABLET 1 tablet by mouth daily at night 2016 LISINOPRIL 73487986651 Active Baltazar Childers MD Active ZITHROMAX Z-ISAIAS 250 MG ORAL TABLET Take two tablets to day and then 1 tablet daily for 4 days AZITHROMYCIN 30445639779 No Longer A ctive Baltazar Childers MD Active AMLODIPINE BESYLATE 5 MG ORAL TABLET 1 tab daily for HTN AMLODIPINE BESYLATE 82841722670 Active Baltazar Childers MD Active GLIPIZIDE 10 MG ORAL TABLET take 2 tablets twice daily GLIPIZIDE 06486699235 Active Baltazar Childers MD Active SUCRALFATE 1 GM ORAL TABLET 1 four times a day to coat the stoma ch SUCRALFATE 69521355859 No Longer Active Baltazar Childers MD Active PEN NEEDLES 31G X 6 MM use 1 daily INSULIN PEN NE EDLE 46368562038 Active KENDALL Juarez Active TOUJEO SOLOSTAR 300 UNIT/ML SUBCUTANEOUS SOLUTION PEN- INJECTOR 10 units SC daily INSULIN GLARGINE 31358856081 No Longer Active Rola abigail Guerrab RMA Active NAPROXEN SODIUM 220 MG ORAL TABLET 1 three times a day as needed NAPROXEN SODIUM 71592877055 No Longer Active Baltazar Childers MD Active ATORVASTATIN CALCIUM 20 MG ORAL TABLET Take 1 tab daily ATORVASTATIN CALCIUM 08412821297 Active Baltazar Childers MD A ctive FUROSEMIDE 40 MG ORAL TABLET Take one by mouth daily FUROSEMIDE 07247271228 Active Baltazar Childers MD Active LISINOPRIL 20 MG ORAL TABLET Take one by mouth daily at bedtime LISINOPRIL 98710259514 No Longer Active Baltazar Childers MD Active ONETOUCH ULTRA BLUE IN VITRO STRIP Test twice a day 07/11/11 GLUCOSE BLOOD 49200172769 No Longer Active Baltazar Childers MD Acti ve TRUEPLUS LANCETS 33G Test twice a day LANCETS 0957854 1936 Active KENDALL Juarez Active TRUEDRAW LANCING DEVICE Test twice a day LANCET DEVICES 29152501129 Active Baltazar Childers MD Active TRUETRACK BLOOD GLUCOSE w/Device KIT Test twice a day BLOOD GLUCOSE MONITORING SUPPL 74852130602 Active Baltazar Childers MD Activ e HYDROCODONE-ACETAMINOPHEN 7.5-325 MG ORAL TABLET Take 1 tab every 6-8 hours PRN HYDROCODONE-ACETAMINOPHEN 16002282213 Active Baltazar Nickerson MD Active GABAPENTIN 300 MG ORAL CAPSULE 1 po qd x 2 days, then 1 po BID x 2 days, then 1 po TID GABAPENTIN 89951254982 No Longer Active Baltazar Childers MD Active NAPROXEN 500 MG ORAL TABLET 1 tablet by mouth twice daily NAPROXEN 62692995478 No Longer Active Baltazar Childers MD Active PROAIR HFA 108 (90 Base) MCG/ACT INHALATION AEROSOL SO LUTION 2 puffs four times a day as needed ALBUTEROL SULFATE 48841724190 Active Shun Arellano LPN Active DEPO-TESTOSTERONE 200 MG/ML INTRAMUSCULAR SOLUTION as directed TESTOSTERONE CYPIONATE 68242267995 No Longer Active Baltazar Childers MD Active LIPITOR 20 MG ORAL TABLET Take one by mouth daily in evening ATORVASTATIN CALCIUM 73282066345 No Longer Active Baltazar Childers MD Active CRESTOR 10 MG ORAL TABLET 1 by mouth every day ROSUVASTATIN CALCIUM 74602426508 No Longer Active Baltazar Childers MD Active PHENTERMINE HCL 37.5 MG ORAL TABLET Take one by mouth daily PHENTERMINE HCL 43928047564 No Longer Active Baltazar Childers MD Ac tive TIZANIDINE HCL 4 MG ORAL TABLET 1 daily as needed for muscle spa sm TIZANIDINE HCL 31989069324 No Longer Active Dawna Salazar RN Active [id number]-[id number] 50-325-40 MG ORAL TABLET 1 fo ur times a day as needed for heacache [id number] 56527483827 Active KENDALL Juaerz Active SUMATRIPTAN SUCCINATE 100 MG ORAL TABLET 1 tablet by m out at onset of migraine as needed SUMATRIPTAN SUCCINATE 78701600762 Active Baltazar Nickerson MD Active LORATADINE 10 MG ORAL TABLET Take one by mouth daily LORATADINE 53133013638 Active Baltazar Childers MD Active OMEPRAZOLE 20 MG ORAL CAPSULE DELAYED RELEASE Take one by mouth jostin ly OMEPRAZOLE 01301014404 Active Baltazar Childers MD Active HYDROXYZINE HCL 25 MG ORAL TABLET Take one by mouth daily HYDROXYZINE HCL 20486161197 Active Baltazar Childers MD Active ALPRAZOLAM 1 MG ORAL TABLET 1 tablet [facility] ALPR[facility]OL[facility] 02165459705 Active Baltazar Childers MD Active METFORMIN HCL 1000 MG ORAL TABLET Take one by mouth twice daily METFORMIN HCL 61705889563 Active Baltazar Childers MD Active TIZANIDINE HCL 4 MG ORAL TABLET 1 daily as needed for muscle spa sm TIZANIDINE HCL 4 MG ORAL TABLET 805117 TIZANIDINE HCL Inactive PHENTERMINE HCL 37.5 MG ORAL TABLET Take one by mouth daily PHENTERMINE HCL 37.5 MG ORAL TABLET 029333 PHENTERMINE HCL Inac tive CRESTOR 10 MG ORAL TABLET 1 by mouth every day CRESTOR 10 MG ORAL TABLET 230689 ROSUVASTATIN CALCIUM Inactive LIPITOR 20 MG ORAL TABLET Take one by mouth daily in evening LIPITOR 20 MG ORAL TABLET 670109 ATORVASTATIN CALCIUM Inactive DEPO-TESTOSTERONE 200 MG/ML INTRAMUSCULAR SOLUTION as directed DEPO-TESTOSTERONE 200 MG/ML INTRAMUSCULAR SOLUTION 2397656 RUFINO TOSTERONE CYPIONATE Inactive NAPROXEN 500 MG ORAL TABLET 1 tablet by mouth twice daily NAPROXEN 500 MG ORAL TABLET 672549 NAPROXEN Inactive GABAPENTIN 300 MG ORAL CAPSULE 1 po qd x 2 days, then 1 po BID x 2 days, then 1 po TID GABAPENTIN 300 MG ORAL CAPSULE 365737 GABAP ENTIN Inactive ONETOUCH ULTRA BLUE IN VITRO STRIP Test twice a day 07/11/11 ONETOUCH ULTRA BLUE IN VITRO STRIP GLUCOSE BLOOD Inact amie NAPROXEN SODIUM 220 MG ORAL TABLET 1 three times a day as needed NAPROXEN SODIUM 220 MG ORAL TABLET 18722614196 NAPROXEN SODI UM Inactive TOUJEO SOLOSTAR 300 UNIT/ML SUBCUTANEOUS SOLUTION PEN- INJECTOR 10 units SC daily TOUJEO SOLOSTAR 300 UNIT/ML SUBCUTANEOUS SOLUTION PEN-INJECTOR INSULIN GLARGINE Inactive SUCRALFATE 1 GM ORAL TABLET 1 four times a day to coat the stoma ch SUCRALFATE 1 GM ORAL TABLET 684794 SUCRALFATE Inac tive GABAPENTIN 300 MG ORAL CAPSULE 1 three times a day 201 12/03/26 GABAPENTIN 300 MG ORAL CAPSULE 123566 GABAPENTIN Inactive TRAMADOL HCL 50 MG ORAL TABLET 1 twice a day as needed for pain TRAMADOL HCL 50 MG ORAL TABLET 887316 TRAMADOL HCL I nactive ZITHROMAX Z-ISAIAS 250 MG ORAL TABLET Take two tablets to day and then 1 tablet daily for 4 days ZITHROMAX Z-ISAIAS 250 MG ORAL TAB LET 247770 AZITHROMYCIN Inactive Immunizations Vaccine Administration Date Value Standard Floyd cription influenza immunization (Flu Vax) has been administered 05/11 Done according to patient influenza virus vaccine, unspecified for mulation pneumococcal immunization administered Pneumovax 23 [CVX33] pneumococcal polysaccharide vaccine, 23 valent Seasonal influenza vaccine, injectable, containing preservative, for > 3 years old (Afluria, FluLaval, Fluzone, Fluvirin, Fluarix, Agriflu(>= 18 yo)) Fluzone (>3 yrs.) [NUS178] Influenza, seasonal, inject able Seasonal influenza vaccine, injectable, containing preservative, for > 3 years old (Afluria, FluLaval, Fluzone, Fluvirin, Fluarix, Agriflu(>= 18 yo)) Fluzone (>3 yrs.) [HVX177] Influenza, seasonal, inject able Vital Signs Date Name Value Unit Range Description blood pressure, diastolic, repeated by physician 86 [...] - Chem istry sodium, serum 136 mmol/L 925-540 9707/06/04 potassium, serum 4.9 mmol/L 3.5-5.2 chloride, serum 97 mmol/L 98-107 carbon dioxide, venous blood 35.3 mmol/L 21.0-32 .0 blood glucose 239 mg/dL 65-95 calcium, serum 10.6 mg/dL 8.5-10.1 urea nitrogen, blood 31 mg/dL 7-18 creatinine, serum 2.33 mg/dL 0.60-1.30 Estimated Glomerular Filtration Rate (calc) 23 (?) mL/min/1.73m2 = OR > 60 mL/min sodium, serum 141 mmol/L 667-365 5597/07/09 potassium, serum 4.9 mmol/L 3.5-5.2 chloride, serum [...] 0.40 mg/dL 0.00-1.00 cholesterol, serum 218 mg/dL 556-602 3963/12/18 triglyceride, serum, fasting 357 mg/dL 30-200 HDL cholesterol, serum 49 mg/dL 32-60 LDL cholesterol, serum 103.00 mg/dL 5.00-130.00 hemoglobin A1C, blood, as % of total hemoglobin 8.5 % 4.3-6.0 sodium, serum 142 mmol/L 319-414 5051/12/18 carbon dioxide, venous blood 32.5 mmol/L 21.0-32 [...] (L) - Chemistry TSH 8.56 m[iU]/mL 0.36-3.74 Encounters Code Encounter Date Provider Facility CPT-62428 [id number] Vst-Est Level IV 15:03:32 CDT Charlie Childers MD [facility]-64416 [id number] Vst-Est Level III 15:51:57 CDT Baltazar Childers MD [facility]-44624 [id number] Vst-Est Level IV 15:14:58 CDT Charlie Childers MD [facility]-42715 [id number] Vst-Est Level IV 15:12:52 NEUROPSYCHOLOGY MEDICAL CONSULTANT Charlie Childers MD [facility]-60497 [id number] Vst-Est Level IV 15:30:55 NEUROPSYCHOLOGY MEDICAL CONSULTANT Charlie Childers MD [facility] CPT-91593 [id number] Vst-Est Level IV 13:49:06 C ELIOT Martinez PA-C [facility] CPT-82117 Level 4 Est. Patient 17:26:08 CDT Ann trujillo PA-C [facility]-82633 66905-Ruz Vst-Est Level V 14:26:27 CDT Aneudy Chiledrs MD [facility] CPT-25914 Level 4 Est. Patient 17:05:37 CDT Baltazar Childers MD [facility] CPT-75038 Level 4 Est. Patient 16:21:19 NEUROPSYCHOLOGY MEDICAL CONSULTANT Baltazar Childers MD [facility] CPT-93343 Level 4 Est. Patient 12:25:11 CDT Baltazar Childers MD [facility]-96126 Level 4 Est. Patient 14:22:31 CDT Baltazar Childers MD [facility]-87791 Level 4 Est. Patient 15:44:38 CDT Sohnna Elena CASTELLANOS [facility]-16623 Level 4 Est. Patient 11:34:17 CDT Baltazar Childers MD [facility]-58240 Level 3 Est. Patient 16:40:40 CDT Baltazar Childers MD [facility]-07257 Level 4 Est. Patient 10:41:24 CDT Baltazar Childers MD [facility]-88200 Level 4 Est. Patient 16:01:48 CDT Baltazar Childers MD [facility]-60607 Level 4 Est. Patient 16:54:07 NEUROPSYCHOLOGY MEDICAL CONSULTANT Baltazar Childers MD [facility]-08624 Level 4 Est. Patient 15:42:12 CDT Baltazar Childers MD [facility] CPT-11998 Level 4 Est. Patient 11:29:55 CDT Baltazar Childers MD [facility]-03241 Level 4 Est. Patient 14:15:19 CDT Baltazar Childers MD [facility] CPT-39069 Level 4 Est. Patient 12:20:13 CDT Baltazar Childers MD [facility] CPT-92735 Level 4 Est. Patient 14:52:45 NEUROPSYCHOLOGY MEDICAL CONSULTANT Baltazar Childers MD [facility] CPT-45125 Level 4 Est. Patient 14:18:34 NEUROPSYCHOLOGY MEDICAL CONSULTANT Baltazar Childers MD [facility]-33056 Level 4 Est. Patient 15:18:29 CDT Baltazar Childers MD [facility] CPT-79559 Level 3 Est. Patient 12:45:34 CDT Baltazar Childers MD [facility]-04356 Level 3 Est. Patient 10:10:11 CDT Baltazar Childers MD [facility] CPT-53440 Level 3 Est. Patient 14:07:50 CDT Baltazar Childers MD [facility] CPT-45103 Level 4 Est. Patient 12:26:10 NEUROPSYCHOLOGY MEDICAL CONSULTANT Baltazar Childers MD [facility] CPT-39886 Level 4 Est. Patient 14:45:38 CDT Baltazar Childers MD [facility] CPT-97194 Level 4 New Patient 12:30:48 CDT Baltazar hinton MD [facility] Procedures Code Procedure Name Date Entry Date Standard Desc ription CPT-82245 Venipuncture Draw Fee 15:19:00 CDT CPT-000 Give Appropriate Flu Vaccine 12:25:14 CDT 2 CPT-74150 First Vx - Ix admin via ID I M or jet injects without counseling by physician 13:08:59 CDT CPT-87540 Fluzone Quadrivalent Intramuscular Suspe nsion 0.5 ML 13:08:59 CDT CPT-67430 Venipuncture Draw Fee 12:04:12 CDT CPT-44410 Lipid - LAB USE ONLY 17:39:15 NEUROPSYCHOLOGY MEDICAL CONSULTANT 9 CPT-77392 HGBA1C - LAB USE ONLY 17:39:15 NEUROPSYCHOLOGY MEDICAL CONSULTANT CPT-40831 CMP - LAB USE ONLY 17:39:14 NEUROPSYCHOLOGY MEDICAL CONSULTANT CPT-27669 Venipuncture Draw Fee 17:39:14 NEUROPSYCHOLOGY MEDICAL CONSULTANT CPT-59512 First Vx - Ix admin via ID I M or jet injects without counseling by physician 16:55:17 NEUROPSYCHOLOGY MEDICAL CONSULTANT CPT-45651 Fluzone Quadrivalent Intramuscular Suspe nsion 0.5 ML 16:55:17 NEUROPSYCHOLOGY MEDICAL CONSULTANT CPT-15002 Renal Panel - LAB USE ONLY 17:39:20 CDT 201 10/31/07 CPT-46357 CBC - LAB USE ONLY 17:39:20 CDT CPT-17022 Venipuncture Draw Fee 17:39:20 CDT CPT-99591 Venipuncture Draw Fee 14:33:30 CDT CPT-41270 Renal Panel - LAB USE ONLY 14:33:30 CDT 201 10/31/07 CPT-81671 CBC - LAB USE ONLY 14:33:29 CDT CPT-24618 Venipuncture Draw Fee 14:50:21 NEUROPSYCHOLOGY MEDICAL CONSULTANT CPT-08305 Immunization Single Admin 17:35:35 CDT 2014 CPT-72502 Fluzone Quadrivalent preservative free ( >=3yrs.) 17:35:35 CDT CPT-21290 Venipuncture Draw Fee 12:10:27 NEUROPSYCHOLOGY MEDICAL CONSULTANT CPT-62897 Fluzone Quadrivalent Intramuscular Suspe nsion 0.5 ML 10:49:13 CDT CPT-58213 First Vx Component - Ix admi n via ID IM or jet inj without physician counseling 15:17:19 NEUROPSYCHOLOGY MEDICAL CONSULTANT CPT-11760 Pneumovax 23 15:17:19 NEUROPSYCHOLOGY MEDICAL CONSULTANT CPT-45609 Pneumovax 14:52:45 NEUROPSYCHOLOGY MEDICAL CONSULTANT CPT-90825 Venipuncture Draw Fee 14:06:30 NEUROPSYCHOLOGY MEDICAL CONSULTANT CPT-000 Give Appropriate Flu Vaccine 14:18:34 NEUROPSYCHOLOGY MEDICAL CONSULTANT 2 CPT-32001 Administration single or combination vac cine inc oral 14:46:00 NEUROPSYCHOLOGY MEDICAL CONSULTANT CPT-09333 Influenza split virus > age 3 14:46:00 NEUROPSYCHOLOGY MEDICAL CONSULTANT CPT-OV Office Visit 19:13:16 CDT CPT-14486 Zostavax 18:41:56 CDT CPT-38646 Administration single or combination vac cine inc oral 12:56:39 CDT CPT-64277 Zoster Vaccine (Zostavax) 12:56:39 CDT 2012 CPT-86342 Venipuncture Draw Fee 10:58:57 CDT CPT-80260 Sono pelvis non OB uterus ovaries cervix 17:45:04 CDT CPT-85164 Sono retroperitoneal complete kidneys an d bladder 17:14:36 CDT CPT-OV Office Visit 14:59:38 NEUROPSYCHOLOGY MEDICAL CONSULTANT CPT-J1070 Depo Testosterone 100 mg 14:50:13 CDT 03/05 CPT-24532 Abx/Therapy Injection 14:50:13 CDT CPT-39993 Administration single or combination vac cine inc oral 14:34:43 CDT CPT-55495 Influenza split virus > age 3 14:34:43 CDT CPT-J1070 Depo Testosterone 100 mg 17:37:13 CDT 01/11 CPT-10921 Abx/Therapy Injection 17:37:13 CDT CPT-45986 Venipuncture Draw Fee 16:30:13 CDT CPT-51017 Venipuncture Draw Fee 16:29:43 CDT CPT-J1070 Depo Testosterone 100 mg 14:45:38 CDT 01/11
--- OUTSIDE RECORDS SUMMARY | 2019-10-27 11:36 | XMS REPORT | Clinical Summary ---
Author Author Admin, [employer] Address Unknown Phone Unavailable Allergies, Adverse Reactions, [...] ronary atherosclerosis of unspecified type of vessel, [place] or graft OTH NONSPC ABN FINDNG RAD&OTH [...] and 13 units at night INSULIN GLARGINE 68812858272 Active Baltazar Childers MD Active ONGLYZA 2.5 MG ORAL TABLET 1 daily for diabetes SAXAGLIPTIN HCL 98751077305 Active Baltazar Childers MD Active TRAMADOL HCL 50 MG ORAL TABLET 1 twice a day as needed for pain TRAMADOL HCL 74431145180 No Longer Active Baltazar Childers MD Active ROBAXIN 500 MG ORAL TABLET Take 1.5 (one and one half) tabs once daily METHOCARBAMOL 37603932154 Active Baltazar Childers MD Active SYNTHROID 112 MCG ORAL TABLET Take one tablet a day LEVOTHYROXINE SODIUM 38554232249 Active Baltazar Childers MD Active TRUE METRIX AIR GLUCOSE METER DEVICE Use as directed BLOOD GLUCOSE MONITORING SUPPL 76950141300 Active Baltazar Childers MD Activ e TRUE METRIX BLOOD GLUCOSE TEST IN VITRO STRIP test blood sug ar BID Dx: E11.65 GLUCOSE BLOOD 52571482833 Active KENDALL Juarez Active NORTRIPTYLINE HCL 50 MG ORAL CAPSULE 1 twice a day for neuropathy 2 NORTRIPTYLINE HCL 56875228933 Active Baltazar Childers MD Acti ve ASPIRIN 81 MG TBEC Take one (1) tablet by mouth daily ASPIRIN 02630272469 Active Baltazar Childers MD Active GABAPENTIN 300 MG ORAL CAPSULE 1 three times a day 201 12/03/26 GABAPENTIN 79722013702 No Longer Active Baltazar Childers MD Activ e LISINOPRIL 20 MG ORAL TABLET 1 tablet by mouth daily at night 2016 LISINOPRIL 91870258700 Active Baltazar Childers MD Active ZITHROMAX Z-ISAIAS 250 MG ORAL TABLET Take two tablets to day and then 1 tablet daily for 4 days AZITHROMYCIN 53615250723 No Longer A ctive Baltazar Childers MD Active AMLODIPINE BESYLATE 5 MG ORAL TABLET 1 tab daily for HTN AMLODIPINE BESYLATE 30946243764 Active Baltazar Childers MD Active GLIPIZIDE 10 MG ORAL TABLET take 2 tablets twice daily GLIPIZIDE 77421791433 Active Baltazar Childers MD Active SUCRALFATE 1 GM ORAL TABLET 1 four times a day to coat the stoma ch SUCRALFATE 60300325350 No Longer Active Baltazar Childers MD Active PEN NEEDLES 31G X 6 MM use 1 daily INSULIN PEN NE EDLE 78266111396 Active KENDALL Juarez Active TOUJEO SOLOSTAR 300 UNIT/ML SUBCUTANEOUS SOLUTION PEN- INJECTOR 10 units SC daily INSULIN GLARGINE 82705824955 No Longer Active Rola abigail Guerrab RMA Active NAPROXEN SODIUM 220 MG ORAL TABLET 1 three times a day as needed NAPROXEN SODIUM 18065227476 No Longer Active Baltazar Childers MD Active ATORVASTATIN CALCIUM 20 MG ORAL TABLET Take 1 tab daily ATORVASTATIN CALCIUM 23075493442 Active Baltazar Childers MD A ctive FUROSEMIDE 40 MG ORAL TABLET Take one by mouth daily FUROSEMIDE 15824631110 Active Baltazar Childers MD Active LISINOPRIL 20 MG ORAL TABLET Take one by mouth daily at bedtime LISINOPRIL 58882206504 No Longer Active Baltazar Childers MD Active ONETOUCH ULTRA BLUE IN VITRO STRIP Test twice a day 07/11/11 GLUCOSE BLOOD 69567715566 No Longer Active Baltazar Childers MD Acti ve TRUEPLUS LANCETS 33G Test twice a day LANCETS 1856732 5699 Active KENDALL Juarez Active TRUEDRAW LANCING DEVICE Test twice a day LANCET DEVICES 95945112049 Active Baltazar Childers MD Active TRUETRACK BLOOD GLUCOSE w/Device KIT Test twice a day BLOOD GLUCOSE MONITORING SUPPL 43073023529 Active Baltzaar Childers MD Activ e HYDROCODONE-ACETAMINOPHEN 7.5-325 MG ORAL TABLET Take 1 tab every 6-8 hours PRN HYDROCODONE-ACETAMINOPHEN 40857577357 Active Baltazar Nickerson MD Active GABAPENTIN 300 MG ORAL CAPSULE 1 po qd x 2 days, then 1 po BID x 2 days, then 1 po TID GABAPENTIN 58646232314 No Longer Active Baltazar Childers MD Active NAPROXEN 500 MG ORAL TABLET 1 tablet by mouth twice daily NAPROXEN 83951739546 No Longer Active Baltazar Childers MD Active PROAIR HFA 108 (90 Base) MCG/ACT INHALATION AEROSOL SO LUTION 2 puffs four times a day as needed ALBUTEROL SULFATE 60216943592 Active Shun Arellano LPN Active DEPO-TESTOSTERONE 200 MG/ML INTRAMUSCULAR SOLUTION as directed TESTOSTERONE CYPIONATE 73889269256 No Longer Active Baltazar Childers MD Active LIPITOR 20 MG ORAL TABLET Take one by mouth daily in evening ATORVASTATIN CALCIUM 27689548527 No Longer Active Baltazar Childers MD Active CRESTOR 10 MG ORAL TABLET 1 by mouth every day ROSUVASTATIN CALCIUM 04528730327 No Longer Active Baltazar Childers MD Active PHENTERMINE HCL 37.5 MG ORAL TABLET Take one by mouth daily PHENTERMINE HCL 40614523778 No Longer Active Baltazar Childers MD Ac tive TIZANIDINE HCL 4 MG ORAL TABLET 1 daily as needed for muscle spa sm TIZANIDINE HCL 92313682055 No Longer Active Dawna Salazar RN Active [id number] 50-325-40 MG ORAL TABLET 1 fo ur times a day as needed for heacache [id number] 61957762121 Active KENDALL Juarez Active SUMATRIPTAN SUCCINATE 100 MG ORAL TABLET 1 tablet by m out at onset of migraine as needed SUMATRIPTAN SUCCINATE 44911644164 Active Baltazar Nickerson MD Active LORATADINE 10 MG ORAL TABLET Take one by mouth daily LORATADINE 55024965208 Active Baltazar Childers MD Active OMEPRAZOLE 20 MG ORAL CAPSULE DELAYED RELEASE Take one by mouth jostin ly OMEPRAZOLE 46384016233 Active Baltazar Childers MD Active HYDROXYZINE HCL 25 MG ORAL TABLET Take one by mouth daily HYDROXYZINE HCL 73254077522 Active Baltazar Childers MD Active ALPRAZOLAM 1 MG ORAL TABLET 1 [facility] 71456644543 Active Baltazar Childers MD Active METFORMIN HCL 1000 MG ORAL TABLET Take one by mouth twice daily METFORMIN HCL 73590451709 Active Baltazar Childers MD Active TIZANIDINE HCL 4 MG ORAL TABLET 1 daily as needed for muscle spa sm TIZANIDINE HCL 4 MG ORAL TABLET 764016 TIZANIDINE HCL Inactive PHENTERMINE HCL 37.5 MG ORAL TABLET Take one by mouth daily PHENTERMINE HCL 37.5 MG ORAL TABLET 273657 PHENTERMINE HCL Inac tive CRESTOR 10 MG ORAL TABLET 1 by mouth every day CRESTOR 10 MG ORAL TABLET 622704 ROSUVASTATIN CALCIUM Inactive LIPITOR 20 MG ORAL TABLET Take one by mouth daily in evening LIPITOR 20 MG ORAL TABLET 469913 ATORVASTATIN CALCIUM Inactive DEPO-TESTOSTERONE 200 MG/ML INTRAMUSCULAR SOLUTION as directed DEPO-TESTOSTERONE 200 MG/ML INTRAMUSCULAR SOLUTION 1775848 RUFINO TOSTERONE CYPIONATE Inactive NAPROXEN 500 MG ORAL TABLET 1 tablet by mouth twice daily NAPROXEN 500 MG ORAL TABLET 752227 NAPROXEN Inactive GABAPENTIN 300 MG ORAL CAPSULE 1 po qd x 2 days, then 1 po BID x 2 days, then 1 po TID GABAPENTIN 300 MG ORAL CAPSULE 606384 GABAP ENTIN Inactive ONETOUCH ULTRA BLUE IN VITRO STRIP Test twice a day 07/11/11 ONETOUCH ULTRA BLUE IN VITRO STRIP GLUCOSE BLOOD Inact amie NAPROXEN SODIUM 220 MG ORAL TABLET 1 three times a day as needed NAPROXEN SODIUM 220 MG ORAL TABLET 00652642639 NAPROXEN SODI UM Inactive TOUJEO SOLOSTAR 300 UNIT/ML SUBCUTANEOUS SOLUTION PEN- INJECTOR 10 units SC daily TOUJEO SOLOSTAR 300 UNIT/ML SUBCUTANEOUS SOLUTION PEN-INJECTOR INSULIN GLARGINE Inactive SUCRALFATE 1 GM ORAL TABLET 1 four times a day to coat the stoma ch SUCRALFATE 1 GM ORAL TABLET 820931 SUCRALFATE Inac tive GABAPENTIN 300 MG ORAL CAPSULE 1 three times a day 201 12/03/26 GABAPENTIN 300 MG ORAL CAPSULE 146414 GABAPENTIN Inactive TRAMADOL HCL 50 MG ORAL TABLET 1 twice a day as needed for pain TRAMADOL HCL 50 MG ORAL TABLET 528209 TRAMADOL HCL I nactive ZITHROMAX Z-ISAIAS 250 MG ORAL TABLET Take two tablets to day and then 1 tablet daily for 4 days ZITHROMAX Z-ISAIAS 250 MG ORAL TAB LET 355482 AZITHROMYCIN Inactive Immunizations Vaccine Administration Date Value Standard Floyd cription influenza immunization (Flu Vax) has been administered 05/11 Done according to patient influenza virus vaccine, unspecified for mulation pneumococcal immunization administered Pneumovax 23 [CVX33] pneumococcal polysaccharide vaccine, 23 valent Seasonal influenza vaccine, injectable, containing preservative, for > 3 years old (Afluria, FluLaval, Fluzone, Fluvirin, Fluarix, Agriflu(>= 18 yo)) Fluzone (>3 yrs.) [[id number]] Influenza, seasonal, inject able Seasonal influenza vaccine, injectable, containing preservative, for > 3 years old (Afluria, FluLaval, Fluzone, Fluvirin, Fluarix, Agriflu(>= 18 yo)) Fluzone (>3 yrs.) [[id number]] Influenza, seasonal, inject able Vital Signs Date [...] - Chem istry sodium, serum 136 mmol/L 749-914 0518/06/04 potassium, serum 4.9 mmol/L 3.5-5.2 chloride, serum 97 mmol/L 98-107 carbon dioxide, venous blood 35.3 mmol/L 21.0-32 .0 blood glucose 239 mg/dL 65-95 calcium, serum 10.6 mg/dL 8.5-10.1 urea nitrogen, blood 31 mg/dL 7-18 creatinine, serum 2.33 mg/dL 0.60-1.30 Estimated Glomerular Filtration Rate (calc) 23 (?) mL/min/1.73m2 = OR > 60 mL/min sodium, serum 141 mmol/L 005-597 0862/07/09 potassium, serum 4.9 mmol/L 3.5-5.2 chloride, serum [...] % of total hemoglobin 8.0 % 4.3-6.0 hemoglobin A1C, blood, as % of total hemoglobin 7.4 % 4.3-6.0 Lab Report: HGBA1C, CBC, Comp. Metabolic Panel, Cholesterol, Triglycerid ... - Chemistry calcium, serum 9.2 mg/dL 8.5-10.1 bilirubin, serum, total 0.40 mg/dL 0.00-1.00 cholesterol, serum 218 mg/dL 618-937 3857/12/18 triglyceride, serum, fasting 357 mg/dL 30-200 HDL cholesterol, serum 49 mg/dL 32-60 LDL cholesterol, serum 103.00 mg/dL 5.00-130.00 hemoglobin A1C, blood, as % of total hemoglobin 8.5 % 4.3-6.0 sodium, serum 142 mmol/L 800-894 1596/12/18 carbon dioxide, venous blood 32.5 mmol/L 21.0-32 [...] 0.36-3.74 Encounters Code Encounter Date Provider Facility CPT-70669 [id number] Vst-Est Level IV 15:03:32 CDT Charlie Childers MD [facility]-53867 [id number] Vst-Est Level III 15:51:57 CDT Baltazar Childers MD [facility]-95733 [id number] Vst-Est Level IV 15:14:58 CDT Charlie Childers MD [facility]-73370 13766-Jrp Vst-Est Level IV 15:12:52 [employer] Charlie Childers MD [facility]-73377 [id number]-Zru Vst-Est Level IV 15:30:55 [employer] Charlie Childers MD [facility] CPT-10853 [id number] Vst-Est Level IV 13:49:06 C ELIOT Martinez PA-C [facility] CPT-71944 Level 4 Est. Patient 17:26:08 CDT Ann trujillo PA-C [facility]-84814 19423-Szi Vst-Est Level V 14:26:27 CDT Aneudy Childers MD [facility] CPT-68260 Level 4 Est. Patient 17:05:37 CDT Baltazar Chidlers MD [facility] CPT-91066 Level 4 Est. Patient 16:21:19 [employer] Baltazar Childers MD [facility] CPT-81762 Level 4 Est. Patient 12:25:11 CDT Baltazar Childers MD [facility]-45302 Level 4 Est. Patient 14:22:31 CDT Baltazar Childers MD [facility]-18244 Level 4 Est. Patient 15:44:38 CDT Shonna Elena CASTELLANOS [facility]-19311 Level 4 Est. Patient 11:34:17 CDT Baltazar Childers MD [facility]-31578 Level 3 Est. Patient 16:40:40 CDT Baltazar Childers MD [facility]-37409 Level 4 Est. Patient 10:41:24 CDT Baltazar Childers MD [facility]-71238 Level 4 Est. Patient 16:01:48 CDT Baltazar Childers MD [facility]-35535 Level 4 Est. Patient 16:54:07 [employer] Baltazar Childers MD [facility]-59839 Level 4 Est. Patient 15:42:12 CDT Baltazar Childers MD [facility] CPT-42341 Level 4 Est. Patient 11:29:55 CDT Baltazar Childers MD [facility]-96824 Level 4 Est. Patient 14:15:19 CDT Baltazar Childers MD [facility] CPT-54392 Level 4 Est. Patient 12:20:13 CDT Baltazar Childers MD [facility] CPT-56551 Level 4 Est. Patient 14:52:45 [employer] Baltazar Childers MD [facility] CPT-98008 Level 4 Est. Patient 14:18:34 [employer] Baltazar Childers MD [facility]-62130 Level 4 Est. Patient 15:18:29 CDT Baltazar Childers MD [facility] CPT-33948 Level 3 Est. Patient 12:45:34 CDT Baltazar Childers MD [facility]-83755 Level 3 Est. Patient 10:10:11 CDT Baltazar Childers MD [facility] CPT-20338 Level 3 Est. Patient 14:07:50 CDT Baltazar Childers MD [facility] CPT-49616 Level 4 Est. Patient 12:26:10 [employer] Baltazar Childers MD [facility] CPT-74079 Level 4 Est. Patient 14:45:38 CDT Baltazar Childers MD [facility] CPT-44659 Level 4 New Patient 12:30:48 CDT Baltazar hinton MD [facility] Procedures Code Procedure Name Date Entry Date Standard Desc ription CPT-06216 Venipuncture Draw Fee 15:19:00 CDT CPT-000 Give Appropriate Flu Vaccine 12:25:14 CDT 2 CPT-16941 First Vx - Ix admin via ID I M or jet injects without counseling by physician 13:08:59 CDT CPT-98806 Fluzone Quadrivalent Intramuscular Suspe nsion 0.5 ML 13:08:59 CDT CPT-98533 Venipuncture Draw Fee 12:04:12 CDT CPT-17217 Lipid - LAB USE ONLY 17:39:15 [employer] 9 CPT-67480 HGBA1C - LAB USE ONLY 17:39:15 [employer] CPT-85784 CMP - LAB USE ONLY 17:39:14 [employer] CPT-83688 Venipuncture Draw Fee 17:39:14 [employer] CPT-87932 First Vx - Ix admin via ID I M or jet injects without counseling by physician 16:55:17 [employer] CPT-05411 Fluzone Quadrivalent Intramuscular Suspe nsion 0.5 ML 16:55:17 [employer] CPT-28145 Renal Panel - LAB USE ONLY 17:39:20 CDT 201 10/31/07 CPT-57433 CBC - LAB USE ONLY 17:39:20 CDT CPT-17266 Venipuncture Draw Fee 17:39:20 CDT CPT-71334 Venipuncture Draw Fee 14:33:30 CDT CPT-85110 Renal Panel - LAB USE ONLY 14:33:30 CDT 201 10/31/07 CPT-63735 CBC - LAB USE ONLY 14:33:29 CDT CPT-80794 Venipuncture Draw Fee 14:50:21 [employer] CPT-02478 Immunization Single Admin 17:35:35 CDT 2014 CPT-45605 Fluzone Quadrivalent preservative free ( >=3yrs.) 17:35:35 CDT CPT-08130 Venipuncture Draw Fee 12:10:27 [employer] CPT-33687 Fluzone Quadrivalent Intramuscular Suspe nsion 0.5 ML 10:49:13 CDT CPT-11179 First Vx Component - Ix admi n via ID IM or jet inj without physician counseling 15:17:19 [employer] CPT-69908 Pneumovax 23 15:17:19 [employer] CPT-74973 Pneumovax 14:52:45 [employer] CPT-02081 Venipuncture Draw Fee 14:06:30 [employer] CPT-000 Give Appropriate Flu Vaccine 14:18:34 [employer] 2 CPT-17150 Administration single or combination vac cine inc oral 14:46:00 [employer] CPT-25597 Influenza split virus > age 3 14:46:00 [employer] CPT-OV Office Visit 19:13:16 CDT CPT-24596 Zostavax 18:41:56 CDT CPT-58554 Administration single or combination vac cine inc oral 12:56:39 CDT CPT-02891 Zoster Vaccine (Zostavax) 12:56:39 CDT 2012 CPT-15413 Venipuncture Draw Fee 10:58:57 CDT CPT-28315 Sono pelvis non OB uterus ovaries cervix 17:45:04 CDT CPT-24719 Sono retroperitoneal complete kidneys an d bladder 17:14:36 CDT CPT-OV Office Visit 14:59:38 [employer] CPT-J1070 Depo Testosterone 100 mg 14:50:13 CDT 03/05 CPT-86612 Abx/Therapy Injection 14:50:13 CDT CPT-22378 Administration single or combination vac cine inc oral 14:34:43 CDT CPT-17154 Influenza split virus > age 3 14:34:43 CDT CPT-J1070 Depo Testosterone 100 mg 17:37:13 CDT 01/11 CPT-17714 Abx/Therapy Injection 17:37:13 CDT CPT-47684 Venipuncture Draw Fee 16:30:13 CDT CPT-59748 Venipuncture Draw Fee 16:29:43 CDT CPT-J1070 Depo Testosterone 100 mg 14:45:38 CDT 01/11
--- OUTSIDE RECORDS SUMMARY | 2019-10-27 11:36 | XMS REPORT | Clinical Summary ---
Author Author Admin, Elba [facility] Address Unknown Phone Unavailable Allergies, Adverse Reactions, [...] ronary atherosclerosis of unspecified type of vessel, [place] or graft OTH NONSPC ABN FINDNG RAD&OTH [...] Tucker LPN Unspecified hypothyroidism Pharyngitis 462 Resolved Blatazar Childers MD Acute pharyngitis BMI 37-37.9 adult [...] and 13 units at night INSULIN GLARGINE 82126973846 Active Baltazar Childers MD Active ONGLYZA 2.5 MG ORAL TABLET 1 daily for diabetes SAXAGLIPTIN HCL 03435340724 Active Baltazar Childers MD Active TRAMADOL HCL 50 MG ORAL TABLET 1 twice a day as needed for pain TRAMADOL HCL 59537662207 No Longer Active Baltazar Childers MD Active ROBAXIN 500 MG ORAL TABLET Take 1.5 (one and one half) tabs once daily METHOCARBAMOL 87396906932 Active Baltazar Childers MD Active SYNTHROID 112 MCG ORAL TABLET Take one tablet a day LEVOTHYROXINE SODIUM 45930836182 Active Baltazar Childers MD Active TRUE METRIX AIR GLUCOSE METER DEVICE Use as directed BLOOD GLUCOSE MONITORING SUPPL 35482547727 Active Baltazar Childers MD Activ e TRUE METRIX BLOOD GLUCOSE TEST IN VITRO STRIP test blood sug ar BID Dx: E11.65 GLUCOSE BLOOD 32513180576 Active KENDALL Juarez Active NORTRIPTYLINE HCL 50 MG ORAL CAPSULE 1 twice a day for neuropathy 2 NORTRIPTYLINE HCL 69168723442 Active Baltazar Childers MD Acti ve ASPIRIN 81 MG TBEC Take one (1) tablet by mouth daily ASPIRIN 12761558589 Active Baltazar Childers MD Active GABAPENTIN 300 MG ORAL CAPSULE 1 three times a day 201 12/03/26 GABAPENTIN 98528642868 No Longer Active Baltazar Childers MD Activ e LISINOPRIL 20 MG ORAL TABLET 1 tablet by mouth daily at night 2016 LISINOPRIL 56137441359 Active Baltazar Childers MD Active ZITHROMAX Z-ISAIAS 250 MG ORAL TABLET Take two tablets to day and then 1 tablet daily for 4 days AZITHROMYCIN 74432912692 No Longer A ctive Baltazar Childers MD Active AMLODIPINE BESYLATE 5 MG ORAL TABLET 1 tab daily for HTN AMLODIPINE BESYLATE 45936747802 Active Baltazar Childers MD Active GLIPIZIDE 10 MG ORAL TABLET take 2 tablets twice daily GLIPIZIDE 95594201285 Active Baltazar Childers MD Active SUCRALFATE 1 GM ORAL TABLET 1 four times a day to coat the stoma ch SUCRALFATE 19994116506 No Longer Active Baltazar Childers MD Active PEN NEEDLES 31G X 6 MM use 1 daily INSULIN PEN NE EDLE 53011181523 Active KENDALL Juarez Active TOUJEO SOLOSTAR 300 UNIT/ML SUBCUTANEOUS SOLUTION PEN- INJECTOR 10 units SC daily INSULIN GLARGINE 33831033896 No Longer Active Rola abigail Guerrab RMA Active NAPROXEN SODIUM 220 MG ORAL TABLET 1 three times a day as needed NAPROXEN SODIUM 39745534178 No Longer Active Baltazar Childers MD Active ATORVASTATIN CALCIUM 20 MG ORAL TABLET Take 1 tab daily ATORVASTATIN CALCIUM 17140713665 Active Baltazar Childers MD A ctive FUROSEMIDE 40 MG ORAL TABLET Take one by mouth daily FUROSEMIDE 12436091185 Active Baltazar Childers MD Active LISINOPRIL 20 MG ORAL TABLET Take one by mouth daily at bedtime LISINOPRIL 42289875793 No Longer Active Baltazar Childers MD Active ONETOUCH ULTRA BLUE IN VITRO STRIP Test twice a day 07/11/11 GLUCOSE BLOOD 06000392184 No Longer Active Baltazar Childers MD Acti ve TRUEPLUS LANCETS 33G Test twice a day LANCETS 9132011 8158 Active KENDALL Juarez Active TRUEDRAW LANCING DEVICE Test twice a day LANCET DEVICES 05269511963 Active Baltazar Childers MD Active TRUETRACK BLOOD GLUCOSE w/Device KIT Test twice a day BLOOD GLUCOSE MONITORING SUPPL 38879272330 Active Baltazar Childers MD Activ e HYDROCODONE-ACETAMINOPHEN 7.5-325 MG ORAL TABLET Take 1 tab every 6-8 hours PRN HYDROCODONE-ACETAMINOPHEN 81861584890 Active Baltazar Nikcerson MD Active GABAPENTIN 300 MG ORAL CAPSULE 1 po qd x 2 days, then 1 po BID x 2 days, then 1 po TID GABAPENTIN 13311148237 No Longer Active Baltazar Childers MD Active NAPROXEN 500 MG ORAL TABLET 1 tablet by mouth twice daily NAPROXEN 34593801715 No Longer Active Baltazar Childers MD Active PROAIR HFA 108 (90 Base) MCG/ACT INHALATION AEROSOL SO LUTION 2 puffs four times a day as needed ALBUTEROL SULFATE 77117369800 Active Shun Arellano LPN Active DEPO-TESTOSTERONE 200 MG/ML INTRAMUSCULAR SOLUTION as directed TESTOSTERONE CYPIONATE 48055525490 No Longer Active Baltazar Childers MD Active LIPITOR 20 MG ORAL TABLET Take one by mouth daily in evening ATORVASTATIN CALCIUM 77459997471 No Longer Active Baltazar Childers MD Active CRESTOR 10 MG ORAL TABLET 1 by mouth every day ROSUVASTATIN CALCIUM 57552466159 No Longer Active Baltazar Childers MD Active PHENTERMINE HCL 37.5 MG ORAL TABLET Take one by mouth daily PHENTERMINE HCL 62139796391 No Longer Active Baltazar Childers MD Ac tive TIZANIDINE HCL 4 MG ORAL TABLET 1 daily as needed for muscle spa sm TIZANIDINE HCL 82793835079 No Longer Active Dawna Salazar RN Active [id number] 50-325-40 MG ORAL TABLET 1 fo ur times a day as needed for heacache [id number] 10525469010 Active KENDALL Juarez Active SUMATRIPTAN SUCCINATE 100 MG ORAL TABLET 1 tablet by m out at onset of migraine as needed SUMATRIPTAN SUCCINATE 40811052548 Active Baltazar Nickerson MD Active LORATADINE 10 MG ORAL TABLET Take one by mouth daily LORATADINE 41476393394 Active Baltazar Childers MD Active OMEPRAZOLE 20 MG ORAL CAPSULE DELAYED RELEASE Take one by mouth jostin ly OMEPRAZOLE 01486993571 Active Baltazar Childers MD Active HYDROXYZINE HCL 25 MG ORAL TABLET Take one by mouth daily HYDROXYZINE HCL 25835792401 Active Baltazar Childers MD Active ALPRAZOLAM 1 MG ORAL TABLET 1 [facility] 99367947505 Active Baltazar Childers MD Active METFORMIN HCL 1000 MG ORAL TABLET Take one by mouth twice daily METFORMIN HCL 37851507506 Active Baltazar Childers MD Active TIZANIDINE HCL 4 MG ORAL TABLET 1 daily as needed for muscle spa sm TIZANIDINE HCL 4 MG ORAL TABLET 882151 TIZANIDINE HCL Inactive PHENTERMINE HCL 37.5 MG ORAL TABLET Take one by mouth daily PHENTERMINE HCL 37.5 MG ORAL TABLET 371689 PHENTERMINE HCL Inac tive CRESTOR 10 MG ORAL TABLET 1 by mouth every day CRESTOR 10 MG ORAL TABLET 661514 ROSUVASTATIN CALCIUM Inactive LIPITOR 20 MG ORAL TABLET Take one by mouth daily in evening LIPITOR 20 MG ORAL TABLET 492508 ATORVASTATIN CALCIUM Inactive DEPO-TESTOSTERONE 200 MG/ML INTRAMUSCULAR SOLUTION as directed DEPO-TESTOSTERONE 200 MG/ML INTRAMUSCULAR SOLUTION 5100645 RUFINO TOSTERONE CYPIONATE Inactive NAPROXEN 500 MG ORAL TABLET 1 tablet by mouth twice daily NAPROXEN 500 MG ORAL TABLET 302887 NAPROXEN Inactive GABAPENTIN 300 MG ORAL CAPSULE 1 po qd x 2 days, then 1 po BID x 2 days, then 1 po TID GABAPENTIN 300 MG ORAL CAPSULE 362638 GABAP ENTIN Inactive ONETOUCH ULTRA BLUE IN VITRO STRIP Test twice a day 07/11/11 ONETOUCH ULTRA BLUE IN VITRO STRIP GLUCOSE BLOOD Inact amie NAPROXEN SODIUM 220 MG ORAL TABLET 1 three times a day as needed NAPROXEN SODIUM 220 MG ORAL TABLET 83691953430 NAPROXEN SODI UM Inactive TOUJEO SOLOSTAR 300 UNIT/ML SUBCUTANEOUS SOLUTION PEN- INJECTOR 10 units SC daily TOUJEO SOLOSTAR 300 UNIT/ML SUBCUTANEOUS SOLUTION PEN-INJECTOR INSULIN GLARGINE Inactive SUCRALFATE 1 GM ORAL TABLET 1 four times a day to coat the stoma ch SUCRALFATE 1 GM ORAL TABLET 378407 SUCRALFATE Inac tive GABAPENTIN 300 MG ORAL CAPSULE 1 three times a day 201 12/03/26 GABAPENTIN 300 MG ORAL CAPSULE 865997 GABAPENTIN Inactive TRAMADOL HCL 50 MG ORAL TABLET 1 twice a day as needed for pain TRAMADOL HCL 50 MG ORAL TABLET 543772 TRAMADOL HCL I nactive ZITHROMAX Z-ISAIAS 250 MG ORAL TABLET Take two tablets to day and then 1 tablet daily for 4 days ZITHROMAX Z-IASIAS 250 MG ORAL TAB LET 908845 AZITHROMYCIN Inactive Immunizations Vaccine Administration Date Value Standard Floyd cription influenza immunization (Flu Vax) has been administered 05/11 Done according to patient influenza virus vaccine, unspecified for mulation pneumococcal immunization administered Pneumovax 23 [CVX33] pneumococcal polysaccharide vaccine, 23 valent Seasonal influenza vaccine, injectable, containing preservative, for > 3 years old (Afluria, FluLaval, Fluzone, Fluvirin, Fluarix, Agriflu(>= 18 yo)) Fluzone (>3 yrs.) [MFE317] Influenza, seasonal, inject able Seasonal influenza vaccine, injectable, containing preservative, for > 3 years old (Afluria, FluLaval, Fluzone, Fluvirin, Fluarix, Agriflu(>= 18 yo)) Fluzone (>3 yrs.) [PRY529] Influenza, seasonal, inject able Vital Signs Date [...] - Chem istry sodium, serum 136 mmol/L 713-216 3937/06/04 potassium, serum 4.9 mmol/L 3.5-5.2 chloride, serum 97 mmol/L 98-107 carbon dioxide, venous blood 35.3 mmol/L 21.0-32 .0 blood glucose 239 mg/dL 65-95 calcium, serum 10.6 mg/dL 8.5-10.1 urea nitrogen, blood 31 mg/dL 7-18 creatinine, serum 2.33 mg/dL 0.60-1.30 Estimated Glomerular Filtration Rate (calc) 23 (?) mL/min/1.73m2 = OR > 60 mL/min sodium, serum 141 mmol/L 209-425 9362/07/09 potassium, serum 4.9 mmol/L 3.5-5.2 chloride, serum [...] 0.40 mg/dL 0.00-1.00 cholesterol, serum 218 mg/dL 159-504 2373/12/18 triglyceride, serum, fasting 357 mg/dL 30-200 HDL cholesterol, serum 49 mg/dL 32-60 LDL cholesterol, serum 103.00 mg/dL 5.00-130.00 hemoglobin A1C, blood, as % of total hemoglobin 8.5 % 4.3-6.0 sodium, serum 142 mmol/L 336-215 2191/12/18 carbon dioxide, venous blood 32.5 mmol/L 21.0-32 [...] 0.36-3.74 Encounters Code Encounter Date Provider Facility CPT-38673 [id number] Vst-Est Level IV 15:03:32 CDT Charlie Childers MD [facility]-25151 [id number] Vst-Est Level III 15:51:57 CDT Baltazar Childers MD [facility]-88799 [id number] Vst-Est Level IV 15:14:58 CDT Charlie Childers MD [facility]-76862 46612-Wrs Vst-Est Level IV 15:12:52 [employer] Charlie Childers MD [facility]-20953 79742-Ega Vst-Est Level IV 15:30:55 [employer] Charlie Childers MD [facility] CPT-82353 [id number] Vst-Est Level IV 13:49:06 C ELIOT Martinez PA-C [facility] CPT-20881 Level 4 Est. Patient 17:26:08 CDT Ann trujillo PA-C [facility]-81282 [id number] Vst-Est Level V 14:26:27 CDT Aenudy Childers MD [facility] CPT-96199 Level 4 Est. Patient 17:05:37 CDT Baltazar Childers MD [facility] CPT-69900 Level 4 Est. Patient 16:21:19 [employer] Baltazar Childers MD [facility] CPT-68316 Level 4 Est. Patient 12:25:11 CDT Baltazar Childers MD [facility]-50856 Level 4 Est. Patient 14:22:31 CDT Baltazar Childers MD [facility]-28005 Level 4 Est. Patient 15:44:38 CDT Shonna Elena CASTELLANOS [facility]-02937 Level 4 Est. Patient 11:34:17 CDT Baltazar Childers MD [facility]-80966 Level 3 Est. Patient 16:40:40 CDT Baltazar Childers MD [facility]-92326 Level 4 Est. Patient 10:41:24 CDT Baltazar Childers MD [facility]-76920 Level 4 Est. Patient 16:01:48 CDT Baltazar Childers MD [facility]-94094 Level 4 Est. Patient 16:54:07 [employer] Baltazar Childers MD [facility]-49936 Level 4 Est. Patient 15:42:12 CDT [facility] CPT-20314 Level 4 Est. Patient 11:29:55 CDT Baltazar Childers MD [facility]-15861 Level 4 Est. Patient 14:15:19 CDT Baltazar Childers MD [facility] CPT-27879 Level 4 Est. Patient 12:20:13 CDT Baltazar Childers MD [facility] CPT-53287 Level 4 Est. Patient 14:52:45 [employer] Baltazar Childers MD [facility] CPT-32795 Level 4 Est. Patient 14:18:34 [employer] Baltazar Childers MD [facility]-14141 Level 4 Est. Patient 15:18:29 CDT Baltazar Childers MD [facility] CPT-73273 Level 3 Est. Patient 12:45:34 CDT Baltazar Childers MD [facility]-84321 Level 3 Est. Patient 10:10:11 CDT Baltazar Childers MD [facility] CPT-77189 Level 3 Est. Patient 14:07:50 CDT Baltazar Childers MD [facility] CPT-34492 Level 4 Est. Patient 12:26:10 [employer] Baltazar Childers MD [facility] CPT-24564 Level 4 Est. Patient 14:45:38 CDT Baltazar Childers MD [facility] CPT-58857 Level 4 New Patient 12:30:48 CDT Baltazar hinton MD [facility] Procedures Code Procedure Name Date Entry Date Standard Desc ription CPT-79395 Venipuncture Draw Fee 15:19:00 CDT CPT-000 Give Appropriate Flu Vaccine 12:25:14 CDT 2 CPT-62955 First Vx - Ix admin via ID I M or jet injects without counseling by physician 13:08:59 CDT CPT-92860 Fluzone Quadrivalent Intramuscular Suspe nsion 0.5 ML 13:08:59 CDT CPT-20787 Venipuncture Draw Fee 12:04:12 CDT CPT-14822 Lipid - LAB USE ONLY 17:39:15 [employer] 9 CPT-11233 HGBA1C - LAB USE ONLY 17:39:15 [employer] CPT-82972 CMP - LAB USE ONLY 17:39:14 [employer] CPT-46040 Venipuncture Draw Fee 17:39:14 [employer] CPT-14416 First Vx - Ix admin via ID I M or jet injects without counseling by physician 16:55:17 [employer] CPT-43716 Fluzone Quadrivalent Intramuscular Suspe nsion 0.5 ML 16:55:17 [employer] CPT-73750 Renal Panel - LAB USE ONLY 17:39:20 CDT 201 10/31/07 CPT-38481 CBC - LAB USE ONLY 17:39:20 CDT CPT-36404 Venipuncture Draw Fee 17:39:20 CDT CPT-98193 Venipuncture Draw Fee 14:33:30 CDT CPT-44052 Renal Panel - LAB USE ONLY 14:33:30 CDT 201 10/31/07 CPT-64305 CBC - LAB USE ONLY 14:33:29 CDT CPT-32154 Venipuncture Draw Fee 14:50:21 [employer] CPT-33370 Immunization Single Admin 17:35:35 CDT 2014 CPT-05286 Fluzone Quadrivalent preservative free ( >=3yrs.) 17:35:35 CDT CPT-79584 Venipuncture Draw Fee 12:10:27 [employer] CPT-17068 Fluzone Quadrivalent Intramuscular Suspe nsion 0.5 ML 10:49:13 CDT CPT-02435 First Vx Component - Ix admi n via ID IM or jet inj without physician counseling 15:17:19 [employer] CPT-79706 Pneumovax 23 15:17:19 [employer] CPT-20677 Pneumovax 14:52:45 [employer] CPT-42105 Venipuncture Draw Fee 14:06:30 [employer] CPT-000 Give Appropriate Flu Vaccine 14:18:34 [employer] WORK[employer] 2 CPT-32733 Administration single or combination vac cine inc oral 14:46:00 [employer] CPT-17576 Influenza split virus > age 3 14:46:00 [employer] CPT-OV Office Visit 19:13:16 CDT CPT-26697 Zostavax 18:41:56 CDT CPT-09142 Administration single or combination vac cine inc oral 12:56:39 CDT CPT-33205 Zoster Vaccine (Zostavax) 12:56:39 CDT 2012 CPT-40374 Venipuncture Draw Fee 10:58:57 CDT CPT-67970 Sono pelvis non OB uterus ovaries cervix 17:45:04 CDT CPT-50106 Sono retroperitoneal complete kidneys an d bladder 17:14:36 CDT CPT-OV Office Visit 14:59:38 [employer] CPT-J1070 Depo Testosterone 100 mg 14:50:13 CDT 03/05 CPT-03163 Abx/Therapy Injection 14:50:13 CDT CPT-05696 Administration single or combination vac cine inc oral 14:34:43 CDT CPT-41473 Influenza split virus > age 3 14:34:43 CDT CPT-J1070 Depo Testosterone 100 mg 17:37:13 CDT 01/11 CPT-50735 Abx/Therapy Injection 17:37:13 CDT CPT-49523 Venipuncture Draw Fee 16:30:13 CDT CPT-86052 Venipuncture Draw Fee 16:29:43 CDT CPT-J1070 Depo Testosterone 100 mg 14:45:38 CDT 01/11
--- OUTSIDE RECORDS SUMMARY | 2019-10-27 11:37 | XMS REPORT | Clinical Summary ---
Author Author Admin, Elba Lance [facility] Address Unknown Phone Unavailable Allergies, Adverse [...] ronary atherosclerosis of unspecified type of vessel, round valley or graft OTH NONSPC ABN FINDNG [...] and 13 units at night INSULIN GLARGINE 20052782322 Active Baltazar Childers MD Active ONGLYZA 2.5 MG ORAL TABLET 1 daily for diabetes SAXAGLIPTIN HCL 63189684912 Active Baltazar Childers MD Active TRAMADOL HCL 50 MG ORAL TABLET 1 twice a day as needed for pain TRAMADOL HCL 81857657101 No Longer Active Baltazar Childers MD Active ROBAXIN 500 MG ORAL TABLET Take 1.5 (one and one half) tabs once daily METHOCARBAMOL 59526849608 Active Baltazar Childers MD Active SYNTHROID 112 MCG ORAL TABLET Take one tablet a day LEVOTHYROXINE SODIUM 82463628058 Active Baltazar Childers MD Active TRUE METRIX AIR GLUCOSE METER DEVICE Use as directed BLOOD GLUCOSE MONITORING SUPPL 47587667077 Active Baltazar Chliders MD Activ e TRUE METRIX BLOOD GLUCOSE TEST IN VITRO STRIP test blood sug ar BID Dx: E11.65 GLUCOSE BLOOD 27318918735 Active KENDALL Juarez Active NORTRIPTYLINE HCL 50 MG ORAL CAPSULE 1 twice a day for neuropathy 2 NORTRIPTYLINE HCL 00493932953 Active Baltazar Childers MD Acti ve ASPIRIN 81 MG TBEC Take one (1) tablet by mouth daily ASPIRIN 94042516493 Active Baltazar Childers MD Active GABAPENTIN 300 MG ORAL CAPSULE 1 three times a day 201 12/03/26 GABAPENTIN 76763113840 No Longer Active Baltazar Childers MD Activ e LISINOPRIL 20 MG ORAL TABLET 1 tablet by mouth daily at night 2016 LISINOPRIL 29666260466 Active Baltazar Childers MD Active ZITHROMAX Z-ISAIAS 250 MG ORAL TABLET Take two tablets to day and then 1 tablet daily for 4 days AZITHROMYCIN 70386675690 No Longer A ctive Baltazar Childers MD Active AMLODIPINE BESYLATE 5 MG ORAL TABLET 1 tab daily for HTN AMLODIPINE BESYLATE 93335724883 Active Baltazar Childers MD Active GLIPIZIDE 10 MG ORAL TABLET take 2 tablets twice daily GLIPIZIDE 95043636039 Active Baltazar Childers MD Active SUCRALFATE 1 GM ORAL TABLET 1 four times a day to coat the stoma ch SUCRALFATE 44568730640 No Longer Active Baltazar Childers MD Active PEN NEEDLES 31G X 6 MM use 1 daily INSULIN PEN NE EDLE 27366221894 Active KENDALL Juarez Active TOUJEO SOLOSTAR 300 UNIT/ML SUBCUTANEOUS SOLUTION PEN- INJECTOR 10 units SC daily INSULIN GLARGINE 43074071216 No Longer Active Rola abigail Guerrab RMA Active NAPROXEN SODIUM 220 MG ORAL TABLET 1 three times a day as needed NAPROXEN SODIUM 00332868473 No Longer Active Baltazar Childers MD Active ATORVASTATIN CALCIUM 20 MG ORAL TABLET Take 1 tab daily ATORVASTATIN CALCIUM 92949203027 Active Baltazar Childers MD A ctive FUROSEMIDE 40 MG ORAL TABLET Take one by mouth daily FUROSEMIDE 27016528963 Active Baltazar Childers MD Active LISINOPRIL 20 MG ORAL TABLET Take one by mouth daily at bedtime LISINOPRIL 57854297919 No Longer Active Baltazar Childers MD Active ONETOUCH ULTRA BLUE IN VITRO STRIP Test twice a day 07/11/11 GLUCOSE BLOOD 95633272064 No Longer Active Baltazar Childers MD Acti ve TRUEPLUS LANCETS 33G Test twice a day LANCETS 3125749 6914 Active KENDALL Juarez Active TRUEDRAW LANCING DEVICE Test twice a day LANCET DEVICES 14686272102 Active Baltazar Childers MD Active TRUETRACK BLOOD GLUCOSE w/Device KIT Test twice a day BLOOD GLUCOSE MONITORING SUPPL 66742986931 Active Baltazar Childers MD Activ e HYDROCODONE-ACETAMINOPHEN 7.5-325 MG ORAL TABLET Take 1 tab every 6-8 hours PRN HYDROCODONE-ACETAMINOPHEN 59861203833 Active Baltazar Nickerson MD Active GABAPENTIN 300 MG ORAL CAPSULE 1 po qd x 2 days, then 1 po BID x 2 days, then 1 po TID GABAPENTIN 26033837998 No Longer Active Baltazar Childers MD Active NAPROXEN 500 MG ORAL TABLET 1 tablet by mouth twice daily NAPROXEN 58918666242 No Longer Active Baltazar Childers MD Active PROAIR HFA 108 (90 Base) MCG/ACT INHALATION AEROSOL SO LUTION 2 puffs four times a day as needed ALBUTEROL SULFATE 97882973330 Active Shun Arellano LPN Active DEPO-TESTOSTERONE 200 MG/ML INTRAMUSCULAR SOLUTION as directed TESTOSTERONE CYPIONATE 47792331943 No Longer Active Baltazar Childers MD Active LIPITOR 20 MG ORAL TABLET Take one by mouth daily in evening ATORVASTATIN CALCIUM 27774520777 No Longer Active Baltazar Childers MD Active CRESTOR 10 MG ORAL TABLET 1 by mouth every day ROSUVASTATIN CALCIUM 12033873308 No Longer Active Baltazar Childers MD Active PHENTERMINE HCL 37.5 MG ORAL TABLET Take one by mouth daily PHENTERMINE HCL 79535487064 No Longer Active Baltazar Childers MD Ac tive TIZANIDINE HCL 4 MG ORAL TABLET 1 daily as needed for muscle spa sm TIZANIDINE HCL 75438248034 No Longer Active Dawna Salazar RN Active [id number] 50-325-40 MG ORAL TABLET 1 fo ur times a day as needed for heacache [id number] 53793498641 Active KENDALL Juarez Active SUMATRIPTAN SUCCINATE 100 MG ORAL TABLET 1 tablet by m out at onset of migraine as needed SUMATRIPTAN SUCCINATE 40355999436 Active Baltazar Nickerson MD Active LORATADINE 10 MG ORAL TABLET Take one by mouth daily LORATADINE 51673705431 Active Baltazar Childers MD Active OMEPRAZOLE 20 MG ORAL CAPSULE DELAYED RELEASE Take one by mouth jostin ly OMEPRAZOLE 39537546555 Active Baltazar Childers MD Active HYDROXYZINE HCL 25 MG ORAL TABLET Take one by mouth daily HYDROXYZINE HCL 64319831158 Active Baltazar Childers MD Active ALPRAZOLAM 1 MG ORAL TABLET 1 tablet by mouth daily at [facility] ALPRAZOLAM 54247725853 Active Baltazar Childers MD Active METFORMIN HCL 1000 MG ORAL TABLET Take one by mouth twice daily METFORMIN HCL 40866030873 Active Baltazar Childers MD Active TIZANIDINE HCL 4 MG ORAL TABLET 1 daily as needed for muscle spa sm TIZANIDINE HCL 4 MG ORAL TABLET 491827 TIZANIDINE HCL Inactive PHENTERMINE HCL 37.5 MG ORAL TABLET Take one by mouth daily PHENTERMINE HCL 37.5 MG ORAL TABLET 521727 PHENTERMINE HCL Inac tive CRESTOR 10 MG ORAL TABLET 1 by mouth every day CRESTOR 10 MG ORAL TABLET 428770 ROSUVASTATIN CALCIUM Inactive LIPITOR 20 MG ORAL TABLET Take one by mouth daily in evening LIPITOR 20 MG ORAL TABLET 533892 ATORVASTATIN CALCIUM Inactive DEPO-TESTOSTERONE 200 MG/ML INTRAMUSCULAR SOLUTION as directed DEPO-TESTOSTERONE 200 MG/ML INTRAMUSCULAR SOLUTION 9201814 RUFINO TOSTERONE CYPIONATE Inactive NAPROXEN 500 MG ORAL TABLET 1 tablet by mouth twice daily NAPROXEN 500 MG ORAL TABLET 693375 NAPROXEN Inactive GABAPENTIN 300 MG ORAL CAPSULE 1 po qd x 2 days, then 1 po BID x 2 days, then 1 po TID GABAPENTIN 300 MG ORAL CAPSULE 226294 GABAP ENTIN Inactive ONETOUCH ULTRA BLUE IN VITRO STRIP Test twice a day 07/11/11 ONETOUCH ULTRA BLUE IN VITRO STRIP GLUCOSE BLOOD Inact amie NAPROXEN SODIUM 220 MG ORAL TABLET 1 three times a day as needed NAPROXEN SODIUM 220 MG ORAL TABLET 17174636176 NAPROXEN SODI UM Inactive TOUJEO SOLOSTAR 300 UNIT/ML SUBCUTANEOUS SOLUTION PEN- INJECTOR 10 units SC daily TOUJEO SOLOSTAR 300 UNIT/ML SUBCUTANEOUS SOLUTION PEN-INJECTOR INSULIN GLARGINE Inactive SUCRALFATE 1 GM ORAL TABLET 1 four times a day to coat the stoma ch SUCRALFATE 1 GM ORAL TABLET 015514 SUCRALFATE Inac tive GABAPENTIN 300 MG ORAL CAPSULE 1 three times a day 201 12/03/26 GABAPENTIN 300 MG ORAL CAPSULE 962047 GABAPENTIN Inactive TRAMADOL HCL 50 MG ORAL TABLET 1 twice a day as needed for pain TRAMADOL HCL 50 MG ORAL TABLET 322273 TRAMADOL HCL I nactive ZITHROMAX Z-ISAIAS 250 MG ORAL TABLET Take two tablets to day and then 1 tablet daily for 4 days ZITHROMAX Z-ISAIAS 250 MG ORAL TAB LET 927451 AZITHROMYCIN Inactive Immunizations Vaccine Administration Date Value Standard Floyd cription influenza immunization (Flu Vax) has been administered 05/11 Done according to patient influenza virus vaccine, unspecified for mulation pneumococcal immunization administered Pneumovax 23 [CVX33] pneumococcal polysaccharide vaccine, 23 valent Seasonal influenza vaccine, injectable, containing preservative, for > 3 years old (Afluria, FluLaval, Fluzone, Fluvirin, Fluarix, Agriflu(>= 18 yo)) Fluzone (>3 yrs.) [[id number]] Influenza, seasonal, inject able Seasonal influenza vaccine, injectable, containing preservative, for > 3 years old (Afluria, FluLaval, Fluzone, Fluvirin, Fluarix, Agriflu(>= 18 yo)) Fluzone (>3 yrs.) [[id number]] Influenza, seasonal, inject able Vital Signs Date [...] - Chem istry sodium, serum 136 mmol/L 949-861 6561/06/04 potassium, serum 4.9 mmol/L 3.5-5.2 chloride, serum 97 mmol/L 98-107 carbon dioxide, venous blood 35.3 mmol/L 21.0-32 .0 blood glucose 239 mg/dL 65-95 calcium, serum 10.6 mg/dL 8.5-10.1 urea nitrogen, blood 31 mg/dL 7-18 creatinine, serum 2.33 mg/dL 0.60-1.30 Estimated Glomerular Filtration Rate (calc) 23 (?) mL/min/1.73m2 = OR > 60 mL/min sodium, serum 141 mmol/L 028-773 5301/07/09 potassium, serum 4.9 mmol/L 3.5-5.2 chloride, serum [...] 0.40 mg/dL 0.00-1.00 cholesterol, serum 218 mg/dL 609-110 3562/12/18 triglyceride, serum, fasting 357 mg/dL 30-200 HDL cholesterol, serum 49 mg/dL 32-60 LDL cholesterol, serum 103.00 mg/dL 5.00-130.00 hemoglobin A1C, blood, as % of total hemoglobin 8.5 % 4.3-6.0 sodium, serum 142 mmol/L 659-135 0985/12/18 carbon dioxide, venous blood 32.5 mmol/L 21.0-32 [...] 0.36-3.74 Encounters Code Encounter Date Provider Facility CPT-78377 [id number] Vst-Est Level IV 15:03:32 CDT Charlie Childers MD [facility]-80798 [id number] Vst-Est Level III 15:51:57 CDT Baltazar Childers MD [facility]-14091 74676-Uyh Vst-Est Level IV 15:14:58 CDT Charlie Childers MD [facility]-05884 03058-Asd Vst-Est Level IV 15:12:52 INSURANCE AND BENEFITS CLERK Charlie Childers MD [facility]-41748 64602-Dpv Vst-Est Level IV 15:30:55 INSURANCE AND BENEFITS CLERK Charlie Childers MD [facility] CPT-30239 [id number] Vst-Est Level IV 13:49:06 C ELIOT Martinez PA-C [facility] CPT-50088 Level 4 Est. Patient 17:26:08 CDT Ann trujillo PA-C [facility]-98608 24538-Oeo Vst-Est Level V 14:26:27 CDT Aneudy Childers MD [facility] CPT-02629 Level 4 Est. Patient 17:05:37 CDT Baltazar Childers MD [facility] CPT-37604 Level 4 Est. Patient 16:21:19 INSURANCE AND BENEFITS CLERK Baltazar Childers MD [facility] CPT-97100 Level 4 Est. Patient 12:25:11 CDT Baltazar Childers MD [facility]-72164 Level 4 Est. Patient 14:22:31 CDT Baltazar Childers MD [facility]-66088 Level 4 Est. Patient 15:44:38 CDT Shonna Elena CASTELLANOS [facility]-14105 Level 4 Est. Patient 11:34:17 CDT Baltazar Childers MD [facility]-40408 Level 3 Est. Patient 16:40:40 CDT Baltazar Childers MD [facility]-05213 Level 4 Est. Patient 10:41:24 CDT Baltazar Childers MD [facility]-87932 Level 4 Est. Patient 16:01:48 CDT Baltazar Childers MD [facility]-42990 Level 4 Est. Patient 16:54:07 INSURANCE AND BENEFITS CLERK Baltazar Childers MD [facility]-23734 Level 4 Est. Patient 15:42:12 CDT Baltazar Childers MD [facility] CPT-67308 Level 4 Est. Patient 11:29:55 CDT Baltazar Childers MD [facility]-59303 Level 4 Est. Patient 14:15:19 CDT Baltazar Childers MD [facility] CPT-17899 Level 4 Est. Patient 12:20:13 CDT Baltazar Childers MD [facility] CPT-97121 Level 4 Est. Patient 14:52:45 INSURANCE AND BENEFITS CLERK Baltazar Childers MD [facility] CPT-55299 Level 4 Est. Patient 14:18:34 INSURANCE AND BENEFITS CLERK Baltazar Childers MD [facility]-96839 Level 4 Est. Patient 15:18:29 CDT Baltazar Childers MD [facility] CPT-15761 Level 3 Est. Patient 12:45:34 CDT Baltazar Childers MD [facility]-08665 Level 3 Est. Patient 10:10:11 CDT Baltazar Childers MD [facility] CPT-56773 Level 3 Est. Patient 14:07:50 CDT Baltazar Childers MD [facility] CPT-81777 Level 4 Est. Patient 12:26:10 INSURANCE AND BENEFITS CLERK Baltazar Childers MD [facility] CPT-51410 Level 4 Est. Patient 14:45:38 CDT Baltazar Childers MD [facility] CPT-44866 Level 4 New Patient 12:30:48 CDT Baltazar hinton MD [facility] Procedures Code Procedure Name Date Entry Date Standard Desc ription CPT-99504 Venipuncture Draw Fee 15:19:00 CDT CPT-000 Give Appropriate Flu Vaccine 12:25:14 CDT 2 CPT-79917 First Vx - Ix admin via ID I M or jet injects without counseling by physician 13:08:59 CDT CPT-46784 Fluzone Quadrivalent Intramuscular Suspe nsion 0.5 ML 13:08:59 CDT CPT-06793 Venipuncture Draw Fee 12:04:12 CDT CPT-43427 Lipid - LAB USE ONLY 17:39:15 INSURANCE AND BENEFITS CLERK 9 CPT-17285 HGBA1C - LAB USE ONLY 17:39:15 INSURANCE AND BENEFITS CLERK CPT-50969 CMP - LAB USE ONLY 17:39:14 INSURANCE AND BENEFITS CLERK CPT-83945 Venipuncture Draw Fee 17:39:14 INSURANCE AND BENEFITS CLERK CPT-34130 First Vx - Ix admin via ID I M or jet injects without counseling by physician 16:55:17 INSURANCE AND BENEFITS CLERK CPT-96420 Fluzone Quadrivalent Intramuscular Suspe nsion 0.5 ML 16:55:17 INSURANCE AND BENEFITS CLERK CPT-52193 Renal Panel - LAB USE ONLY 17:39:20 CDT 201 10/31/07 CPT-90860 CBC - LAB USE ONLY 17:39:20 CDT CPT-13968 Venipuncture Draw Fee 17:39:20 CDT CPT-86773 Venipuncture Draw Fee 14:33:30 CDT CPT-52441 Renal Panel - LAB USE ONLY 14:33:30 CDT 201 10/31/07 CPT-86780 CBC - LAB USE ONLY 14:33:29 CDT CPT-15452 Venipuncture Draw Fee 14:50:21 INSURANCE AND BENEFITS CLERK CPT-93541 Immunization Single Admin 17:35:35 CDT 2014 CPT-31364 Fluzone Quadrivalent preservative free ( >=3yrs.) 17:35:35 CDT CPT-96926 Venipuncture Draw Fee 12:10:27 INSURANCE AND BENEFITS CLERK CPT-64942 Fluzone Quadrivalent Intramuscular Suspe nsion 0.5 ML 10:49:13 CDT CPT-25021 First Vx Component - Ix admi n via ID IM or jet inj without physician counseling 15:17:19 INSURANCE AND BENEFITS CLERK CPT-30151 Pneumovax 23 15:17:19 INSURANCE AND BENEFITS CLERK CPT-29111 Pneumovax 14:52:45 INSURANCE AND BENEFITS CLERK CPT-37185 Venipuncture Draw Fee 14:06:30 INSURANCE AND BENEFITS CLERK CPT-000 Give Appropriate Flu Vaccine 14:18:34 INSURANCE AND BENEFITS CLERK 2 CPT-38089 Administration single or combination vac cine inc oral 14:46:00 INSURANCE AND BENEFITS CLERK CPT-38558 Influenza split virus > age 3 14:46:00 INSURANCE AND BENEFITS CLERK CPT-OV Office Visit 19:13:16 CDT CPT-20628 Zostavax 18:41:56 CDT CPT-90391 Administration single or combination vac cine inc oral 12:56:39 CDT CPT-82852 Zoster Vaccine (Zostavax) 12:56:39 CDT 2012 CPT-54330 Venipuncture Draw Fee 10:58:57 CDT CPT-81384 Sono pelvis non OB uterus ovaries cervix 17:45:04 CDT CPT-93821 Sono retroperitoneal complete kidneys an d bladder 17:14:36 CDT CPT-OV Office Visit 14:59:38 INSURANCE AND BENEFITS CLERK CPT-J1070 Depo Testosterone 100 mg 14:50:13 CDT 03/05 CPT-45615 Abx/Therapy Injection 14:50:13 CDT CPT-12457 Administration single or combination vac cine inc oral 14:34:43 CDT CPT-29603 Influenza split virus > age 3 14:34:43 CDT CPT-J1070 Depo Testosterone 100 mg 17:37:13 CDT 01/11 CPT-52116 Abx/Therapy Injection 17:37:13 CDT CPT-39325 Venipuncture Draw Fee 16:30:13 CDT CPT-78364 Venipuncture Draw Fee 16:29:43 CDT CPT-J1070 Depo Testosterone 100 mg 14:45:38 CDT 01/11
--- OUTSIDE RECORDS SUMMARY | 2019-10-27 11:37 | XMS REPORT | Clinical Summary ---
Author Author Admin, Elba [facility] Address Unknown Phone Unavailable Allergies, Adverse [...] ronary atherosclerosis of unspecified type of vessel, dry creek or graft OTH NONSPC ABN FINDNG RAD&OTH [...] uterus, unspecified WELL WOMAN EXAMINATION V72.31 Active Gayahtri aviles MD Routine gynecological examination Health screening [...] and 13 units at night INSULIN GLARGINE 93692820554 Active Baltazar Childers MD Active ONGLYZA 2.5 MG ORAL TABLET 1 daily for diabetes SAXAGLIPTIN HCL 89198572983 Active Baltazar Childers MD Active TRAMADOL HCL 50 MG ORAL TABLET 1 twice a day as needed for pain TRAMADOL HCL 47124250662 No Longer Active Baltazar Childers MD Active ROBAXIN 500 MG ORAL TABLET Take 1.5 (one and one half) tabs once daily METHOCARBAMOL 00296645815 Active Baltazar Childers MD Active SYNTHROID 112 MCG ORAL TABLET Take one tablet a day LEVOTHYROXINE SODIUM 02995188140 Active Baltazar Childers MD Active TRUE METRIX AIR GLUCOSE METER DEVICE Use as directed BLOOD GLUCOSE MONITORING SUPPL 80163950926 Active Baltazar Childers MD Activ e TRUE METRIX BLOOD GLUCOSE TEST IN VITRO STRIP test blood sug ar BID Dx: E11.65 GLUCOSE BLOOD 74918808669 Active KENADLL Juarez Active NORTRIPTYLINE HCL 50 MG ORAL CAPSULE 1 twice a day for neuropathy 2 NORTRIPTYLINE HCL 48294364009 Active Baltazar Childers MD Acti ve ASPIRIN 81 MG TBEC Take one (1) tablet by mouth daily ASPIRIN 24955404480 Active Baltazar Childers MD Active GABAPENTIN 300 MG ORAL CAPSULE 1 three times a day 201 12/03/26 GABAPENTIN 51007928999 No Longer Active Baltazar Childers MD Activ e LISINOPRIL 20 MG ORAL TABLET 1 tablet by mouth daily at night 2016 LISINOPRIL 71809801673 Active Baltazar Childers MD Active ZITHROMAX Z-ISAIAS 250 MG ORAL TABLET Take two tablets to day and then 1 tablet daily for 4 days AZITHROMYCIN 89166243340 No Longer A ctive Baltazar Childers MD Active AMLODIPINE BESYLATE 5 MG ORAL TABLET 1 tab daily for HTN AMLODIPINE BESYLATE 47666399811 Active Baltazar Childers MD Active GLIPIZIDE 10 MG ORAL TABLET take 2 tablets twice daily GLIPIZIDE 19343079892 Active Baltazar Childers MD Active SUCRALFATE 1 GM ORAL TABLET 1 four times a day to coat the stoma ch SUCRALFATE 73403779303 No Longer Active Baltazar Childers MD Active PEN NEEDLES 31G X 6 MM use 1 daily INSULIN PEN NE EDLE 46620934211 Active KENDALL Juarez Active TOUJEO SOLOSTAR 300 UNIT/ML SUBCUTANEOUS SOLUTION PEN- INJECTOR 10 units SC daily INSULIN GLARGINE 89864203424 No Longer Active Rola abigail Guerrab RMA Active NAPROXEN SODIUM 220 MG ORAL TABLET 1 three times a day as needed NAPROXEN SODIUM 90490248478 No Longer Active Baltazar Childers MD Active ATORVASTATIN CALCIUM 20 MG ORAL TABLET Take 1 tab daily ATORVASTATIN CALCIUM 80041845210 Active Baltazar Childers MD A ctive FUROSEMIDE 40 MG ORAL TABLET Take one by mouth daily FUROSEMIDE 40136498915 Active Baltazar Childers MD Active LISINOPRIL 20 MG ORAL TABLET Take one by mouth daily at bedtime LISINOPRIL 54225575495 No Longer Active Baltazar Childers MD Active ONETOUCH ULTRA BLUE IN VITRO STRIP Test twice a day 07/11/11 GLUCOSE BLOOD 86208250242 No Longer Active Baltazar Childers MD Acti ve TRUEPLUS LANCETS 33G Test twice a day LANCETS 4274474 3518 Active KENDALL Juarez Active TRUEDRAW LANCING DEVICE Test twice a day LANCET DEVICES 00722657660 Active Baltazar Childers MD Active TRUETRACK BLOOD GLUCOSE w/Device KIT Test twice a day BLOOD GLUCOSE MONITORING SUPPL 28844506069 Active Baltazar Childers MD Activ e HYDROCODONE-ACETAMINOPHEN 7.5-325 MG ORAL TABLET Take 1 tab every 6-8 hours PRN HYDROCODONE-ACETAMINOPHEN 34523214384 Active Baltazar Nickerson MD Active GABAPENTIN 300 MG ORAL CAPSULE 1 po qd x 2 days, then 1 po BID x 2 days, then 1 po TID GABAPENTIN 53775057304 No Longer Active Baltazar Childers MD Active NAPROXEN 500 MG ORAL TABLET 1 tablet by mouth twice daily NAPROXEN 35330446340 No Longer Active Baltazar Childers MD Active PROAIR HFA 108 (90 Base) MCG/ACT INHALATION AEROSOL SO LUTION 2 puffs four times a day as needed ALBUTEROL SULFATE 40677974064 Active Shun Arellano LPN Active DEPO-TESTOSTERONE 200 MG/ML INTRAMUSCULAR SOLUTION as directed TESTOSTERONE CYPIONATE 30888634693 No Longer Active Baltazar Childers MD Active LIPITOR 20 MG ORAL TABLET Take one by mouth daily in evening ATORVASTATIN CALCIUM 47045233259 No Longer Active Baltazar Childers MD Active CRESTOR 10 MG ORAL TABLET 1 by mouth every day ROSUVASTATIN CALCIUM 90590336622 No Longer Active Baltazar Childers MD Active PHENTERMINE HCL 37.5 MG ORAL TABLET Take one by mouth daily PHENTERMINE HCL 90681941742 No Longer Active Baltazar Childers MD Ac tive TIZANIDINE HCL 4 MG ORAL TABLET 1 daily as needed for muscle spa sm TIZANIDINE HCL 94395968994 No Longer Active Dawna Salazar RN Active [id number] 50-325-40 MG ORAL TABLET 1 fo ur times a day as needed for heacache [id number] 29106913327 Active KENDALL Juarez Active SUMATRIPTAN SUCCINATE 100 MG ORAL TABLET 1 tablet by m out at onset of migraine as needed SUMATRIPTAN SUCCINATE 60190115793 Active Baltazar Nickerson MD Active LORATADINE 10 MG ORAL TABLET Take one by mouth daily LORATADINE 42269561909 Active Baltazar Childers MD Active OMEPRAZOLE 20 MG ORAL CAPSULE DELAYED RELEASE Take one by mouth jostin ly OMEPRAZOLE 64692930594 Active Baltazar Childers MD Active HYDROXYZINE HCL 25 MG ORAL TABLET Take one by mouth daily HYDROXYZINE HCL 10075975211 Active Baltazar Childers MD Active ALPRAZOLAM 1 MG ORAL TABLET 1 tablet [facility] ALPR[facility] 16454048396 Active Baltazar Childers MD Active METFORMIN HCL 1000 MG ORAL TABLET Take one by mouth twice daily METFORMIN HCL 44387048911 Active Baltazar Childers MD Active TIZANIDINE HCL 4 MG ORAL TABLET 1 daily as needed for muscle spa sm TIZANIDINE HCL 4 MG ORAL TABLET 541518 TIZANIDINE HCL Inactive PHENTERMINE HCL 37.5 MG ORAL TABLET Take one by mouth daily PHENTERMINE HCL 37.5 MG ORAL TABLET 042507 PHENTERMINE HCL Inac tive CRESTOR 10 MG ORAL TABLET 1 by mouth every day CRESTOR 10 MG ORAL TABLET 823928 ROSUVASTATIN CALCIUM Inactive LIPITOR 20 MG ORAL TABLET Take one by mouth daily in evening LIPITOR 20 MG ORAL TABLET 162898 ATORVASTATIN CALCIUM Inactive DEPO-TESTOSTERONE 200 MG/ML INTRAMUSCULAR SOLUTION as directed DEPO-TESTOSTERONE 200 MG/ML INTRAMUSCULAR SOLUTION 3923383 RUFINO TOSTERONE CYPIONATE Inactive NAPROXEN 500 MG ORAL TABLET 1 tablet by mouth twice daily NAPROXEN 500 MG ORAL TABLET 950995 NAPROXEN Inactive GABAPENTIN 300 MG ORAL CAPSULE 1 po qd x 2 days, then 1 po BID x 2 days, then 1 po TID GABAPENTIN 300 MG ORAL CAPSULE 269302 GABAP ENTIN Inactive ONETOUCH ULTRA BLUE IN VITRO STRIP Test twice a day 07/11/11 ONETOUCH ULTRA BLUE IN VITRO STRIP GLUCOSE BLOOD Inact amie NAPROXEN SODIUM 220 MG ORAL TABLET 1 three times a day as needed NAPROXEN SODIUM 220 MG ORAL TABLET 44300642449 NAPROXEN SODI UM Inactive TOUJEO SOLOSTAR 300 UNIT/ML SUBCUTANEOUS SOLUTION PEN- INJECTOR 10 units SC daily TOUJEO SOLOSTAR 300 UNIT/ML SUBCUTANEOUS SOLUTION PEN-INJECTOR INSULIN GLARGINE Inactive SUCRALFATE 1 GM ORAL TABLET 1 four times a day to coat the stoma ch SUCRALFATE 1 GM ORAL TABLET 455093 SUCRALFATE Inac tive GABAPENTIN 300 MG ORAL CAPSULE 1 three times a day 201 12/03/26 GABAPENTIN 300 MG ORAL CAPSULE 385210 GABAPENTIN Inactive TRAMADOL HCL 50 MG ORAL TABLET 1 twice a day as needed for pain TRAMADOL HCL 50 MG ORAL TABLET 820068 TRAMADOL HCL I nactive ZITHROMAX Z-ISAIAS 250 MG ORAL TABLET Take two tablets to day and then 1 tablet daily for 4 days ZITHROMAX Z-ISAIAS 250 MG ORAL TAB LET 077194 AZITHROMYCIN Inactive Immunizations Vaccine Administration Date Value Standard Floyd cription influenza immunization (Flu Vax) has been administered 05/11 Done according to patient influenza virus vaccine, unspecified for mulation pneumococcal immunization administered Pneumovax 23 [CVX33] pneumococcal polysaccharide vaccine, 23 valent Seasonal influenza vaccine, injectable, containing preservative, for > 3 years old (Afluria, FluLaval, Fluzone, Fluvirin, Fluarix, Agriflu(>= 18 yo)) Fluzone (>3 yrs.) [SFK086] Influenza, seasonal, inject able Seasonal influenza vaccine, injectable, containing preservative, for > 3 years old (Afluria, FluLaval, Fluzone, Fluvirin, Fluarix, Agriflu(>= 18 yo)) Fluzone (>3 yrs.) [FAW192] Influenza, seasonal, inject able Vital Signs Date [...] - Chem istry sodium, serum 136 mmol/L 012-140 4017/06/04 potassium, serum 4.9 mmol/L 3.5-5.2 chloride, serum 97 mmol/L 98-107 carbon dioxide, venous blood 35.3 mmol/L 21.0-32 .0 blood glucose 239 mg/dL 65-95 calcium, serum 10.6 mg/dL 8.5-10.1 urea nitrogen, blood 31 mg/dL 7-18 creatinine, serum 2.33 mg/dL 0.60-1.30 Estimated Glomerular Filtration Rate (calc) 23 (?) mL/min/1.73m2 = OR > 60 mL/min sodium, serum 141 mmol/L 943-342 3556/07/09 potassium, serum 4.9 mmol/L 3.5-5.2 chloride, serum [...] 0.40 mg/dL 0.00-1.00 cholesterol, serum 218 mg/dL 111-114 7383/12/18 triglyceride, serum, fasting 357 mg/dL 30-200 HDL cholesterol, serum 49 mg/dL 32-60 LDL cholesterol, serum 103.00 mg/dL 5.00-130.00 hemoglobin A1C, blood, as % of total hemoglobin 8.5 % 4.3-6.0 sodium, serum 142 mmol/L 961-849 9259/12/18 carbon dioxide, venous blood 32.5 mmol/L 21.0-32 [...] 0.36-3.74 Encounters Code Encounter Date Provider Facility CPT-31066 [id number] Vst-Est Level IV 15:03:32 CDT Charlie Childers MD [facility]-79480 [id number] Vst-Est Level III 15:51:57 CDT Baltazar Childers MD [facility]-87424 86938-Naz Vst-Est Level IV 15:14:58 CDT Charlie Childers MD [facility]-57715 80552-Ibm Vst-Est Level IV 15:12:52 AUDIO VISUAL TECHNICIAN Charlie Childers MD [facility]-70725 [id number] Vst-Est Level IV 15:30:55 AUDIO VISUAL TECHNICIAN Charlie Childers MD [facility] CPT-29020 [id number] Vst-Est Level IV 13:49:06 C ELIOT Martinez PA-C [facility] CPT-64028 Level 4 Est. Patient 17:26:08 CDT Ann trujillo PA-C [facility]-76378 [id number] Vst-Est Level V 14:26:27 CDT Aneudy Childers MD [facility] CPT-31567 Level 4 Est. Patient 17:05:37 CDT Baltazar Childers MD [facility] CPT-75137 Level 4 Est. Patient 16:21:19 AUDIO VISUAL TECHNICIAN Baltazar Childers MD [facility] CPT-45040 Level 4 Est. Patient 12:25:11 CDT Baltazar Childers MD [facility]-13148 Level 4 Est. Patient 14:22:31 CDT Baltazar Childers MD [facility]-73860 Level 4 Est. Patient 15:44:38 CDT Shonna Elena CASTELLANOS [facility]-05900 Level 4 Est. Patient 11:34:17 CDT Baltazar Childers MD [facility]-21294 Level 3 Est. Patient 16:40:40 CDT Baltazar Childers MD [facility]-35746 Level 4 Est. Patient 10:41:24 CDT Baltazar Childers MD [facility]-25052 Level 4 Est. Patient 16:01:48 CDT Baltazar Childers MD [facility]-68618 Level 4 Est. Patient 16:54:07 AUDIO VISUAL TECHNICIAN Baltazar Childers MD [facility]-73918 Level 4 Est. Patient 15:42:12 CDT Baltazar Childers MD [facility] CPT-21303 Level 4 Est. Patient 11:29:55 CDT Baltazar Childers MD [facility] [place]-77911 Level 4 Est. Patient 14:15:19 CDT Baltazar Childers MD [facility] CPT-00248 Level 4 Est. Patient 12:20:13 CDT Baltazar Childers MD [facility] CPT-44452 Level 4 Est. Patient 14:52:45 AUDIO VISUAL TECHNICIAN Baltazar Childers MD [facility] CPT-82188 Level 4 Est. Patient 14:18:34 AUDIO VISUAL TECHNICIAN Baltazar Childers MD [facility] [place]-43495 Level 4 Est. Patient 15:18:29 CDT Baltazar Childers MD [facility] CPT-44513 Level 3 Est. Patient 12:45:34 CDT Baltazar Childers MD [facility] [place]-27817 Level 3 Est. Patient 10:10:11 CDT Baltazar Childers MD [facility] CPT-18770 Level 3 Est. Patient 14:07:50 CDT Baltazar Childers MD [facility] CPT-70806 Level 4 Est. Patient 12:26:10 AUDIO VISUAL TECHNICIAN Baltazar Childers MD [facility] CPT-77385 Level 4 Est. Patient 14:45:38 CDT Baltazar Childers MD [facility] CPT-65849 Level 4 New Patient 12:30:48 CDT Baltazar hinton MD [facility] Procedures Code Procedure Name Date Entry Date Standard Desc ription CPT-78842 Venipuncture Draw Fee 15:19:00 CDT CPT-000 Give Appropriate Flu Vaccine 12:25:14 CDT 2 CPT-03792 First Vx - Ix admin via ID I M or jet injects without counseling by physician 13:08:59 CDT CPT-53142 Fluzone Quadrivalent Intramuscular Suspe nsion 0.5 ML 13:08:59 CDT CPT-97960 Venipuncture Draw Fee 12:04:12 CDT CPT-07956 Lipid - LAB USE ONLY 17:39:15 AUDIO VISUAL TECHNICIAN 9 CPT-87765 HGBA1C - LAB USE ONLY 17:39:15 AUDIO VISUAL TECHNICIAN CPT-89952 CMP - LAB USE ONLY 17:39:14 AUDIO VISUAL TECHNICIAN CPT-61023 Venipuncture Draw Fee 17:39:14 AUDIO VISUAL TECHNICIAN CPT-35687 First Vx - Ix admin via ID I M or jet injects without counseling by physician 16:55:17 AUDIO VISUAL TECHNICIAN CPT-64129 Fluzone Quadrivalent Intramuscular Suspe nsion 0.5 ML 16:55:17 AUDIO VISUAL TECHNICIAN CPT-19235 Renal Panel - LAB USE ONLY 17:39:20 CDT 201 10/31/07 CPT-39506 CBC - LAB USE ONLY 17:39:20 CDT CPT-32128 Venipuncture Draw Fee 17:39:20 CDT CPT-94208 Venipuncture Draw Fee 14:33:30 CDT CPT-32458 Renal Panel - LAB USE ONLY 14:33:30 CDT 201 10/31/07 CPT-41826 CBC - LAB USE ONLY 14:33:29 CDT CPT-89016 Venipuncture Draw Fee 14:50:21 AUDIO VISUAL TECHNICIAN CPT-77717 Immunization Single Admin 17:35:35 CDT 2014 CPT-73470 Fluzone Quadrivalent preservative free ( >=3yrs.) 17:35:35 CDT CPT-35118 Venipuncture Draw Fee 12:10:27 AUDIO VISUAL TECHNICIAN CPT-17190 Fluzone Quadrivalent Intramuscular Suspe nsion 0.5 ML 10:49:13 CDT CPT-43034 First Vx Component - Ix admi n via ID IM or jet inj without physician counseling 15:17:19 AUDIO VISUAL TECHNICIAN CPT-89916 Pneumovax 23 15:17:19 AUDIO VISUAL TECHNICIAN CPT-17163 Pneumovax 14:52:45 AUDIO VISUAL TECHNICIAN CPT-12489 Venipuncture Draw Fee 14:06:30 AUDIO VISUAL TECHNICIAN CPT-000 Give Appropriate Flu Vaccine 14:18:34 AUDIO VISUAL TECHNICIAN 2 CPT-91224 Administration single or combination vac cine inc oral 14:46:00 AUDIO VISUAL TECHNICIAN CPT-38672 Influenza split virus > age 3 14:46:00 AUDIO VISUAL TECHNICIAN CPT-OV Office Visit 19:13:16 CDT CPT-26866 Zostavax 18:41:56 CDT CPT-83599 Administration single or combination vac cine inc oral 12:56:39 CDT CPT-08181 Zoster Vaccine (Zostavax) 12:56:39 CDT 2012 CPT-23435 Venipuncture Draw Fee 10:58:57 CDT CPT-92192 Sono pelvis non OB uterus ovaries cervix 17:45:04 CDT CPT-96319 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
--- OUTSIDE RECORDS SUMMARY | 2019-10-27 11:37 | XMS REPORT | Clinical Summary ---
Author Author Admin, Elba Lance [facility] Address Unknown Phone Unavailable Allergies, Adverse [...] of unspecified type of vessel, [place] or graft OTH NONSPC ABN FINDNG RAD&OTH [...] and 13 units at night INSULIN GLARGINE 35402828043 Active Baltazar Childers MD Active ONGLYZA 2.5 MG ORAL TABLET 1 daily for diabetes SAXAGLIPTIN HCL 77074567001 Active Baltazar Childers MD Active TRAMADOL HCL 50 MG ORAL TABLET 1 twice a day as needed for pain TRAMADOL HCL 61215994621 No Longer Active Baltazar Childers MD Active ROBAXIN 500 MG ORAL TABLET Take 1.5 (one and one half) tabs once daily METHOCARBAMOL 59519000695 Active Baltazar Childers MD Active SYNTHROID 112 MCG ORAL TABLET Take one tablet a day LEVOTHYROXINE SODIUM 77434981786 Active Baltazar Childers MD Active TRUE METRIX AIR GLUCOSE METER DEVICE Use as directed BLOOD GLUCOSE MONITORING SUPPL 69783735059 Active Baltazar Childers MD Activ e TRUE METRIX BLOOD GLUCOSE TEST IN VITRO STRIP test blood sug ar BID Dx: E11.65 GLUCOSE BLOOD 22541843953 Active KENDALL Juarez Active NORTRIPTYLINE HCL 50 MG ORAL CAPSULE 1 twice a day for neuropathy 2 NORTRIPTYLINE HCL 66365926764 Active Baltazar Childers MD Acti ve ASPIRIN 81 MG TBEC Take one (1) tablet by mouth daily ASPIRIN 04602616590 Active Baltazar Childers MD Active GABAPENTIN 300 MG ORAL CAPSULE 1 three times a day 201 12/03/26 GABAPENTIN 80653345740 No Longer Active Baltazar Childers MD Activ e LISINOPRIL 20 MG ORAL TABLET 1 tablet by mouth daily at night 2016 LISINOPRIL 40657333879 Active Baltazar Childers MD Active ZITHROMAX Z-ISAIAS 250 MG ORAL TABLET Take two tablets to day and then 1 tablet daily for 4 days AZITHROMYCIN 89660840608 No Longer A ctive Baltazar Childers MD Active AMLODIPINE BESYLATE 5 MG ORAL TABLET 1 tab daily for HTN AMLODIPINE BESYLATE 14888360116 Active Baltazar Childers MD Active GLIPIZIDE 10 MG ORAL TABLET take 2 tablets twice daily GLIPIZIDE 93267182715 Active Baltazar Childers MD Active SUCRALFATE 1 GM ORAL TABLET 1 four times a day to coat the stoma ch SUCRALFATE 63078269152 No Longer Active Baltazar Childers MD Active PEN NEEDLES 31G X 6 MM use 1 daily INSULIN PEN NE EDLE 12833920525 Active KENDALL Juarez Active TOUJEO SOLOSTAR 300 UNIT/ML SUBCUTANEOUS SOLUTION PEN- INJECTOR 10 units SC daily INSULIN GLARGINE 99231154449 No Longer Active Rola abigail Guerrab RMA Active NAPROXEN SODIUM 220 MG ORAL TABLET 1 three times a day as needed NAPROXEN SODIUM 52345092080 No Longer Active Baltazar Childers MD Active ATORVASTATIN CALCIUM 20 MG ORAL TABLET Take 1 tab daily ATORVASTATIN CALCIUM 13026636809 Active Baltazar Childers MD A ctive FUROSEMIDE 40 MG ORAL TABLET Take one by mouth daily FUROSEMIDE 89802180266 Active Baltazar Childers MD Active LISINOPRIL 20 MG ORAL TABLET Take one by mouth daily at bedtime LISINOPRIL 23782054763 No Longer Active Baltazar Childers MD Active ONETOUCH ULTRA BLUE IN VITRO STRIP Test twice a day 07/11/11 GLUCOSE BLOOD 91265439144 No Longer Active Baltazar Childers MD Acti ve TRUEPLUS LANCETS 33G Test twice a day LANCETS 0352001 7613 Active KENDALL Juarez Active TRUEDRAW LANCING DEVICE Test twice a day LANCET DEVICES 43998484776 Active Baltazar Childers MD Active TRUETRACK BLOOD GLUCOSE w/Device KIT Test twice a day BLOOD GLUCOSE MONITORING SUPPL 86639084108 Active Baltazar Childers MD Activ e HYDROCODONE-ACETAMINOPHEN 7.5-325 MG ORAL TABLET Take 1 tab every 6-8 hours PRN HYDROCODONE-ACETAMINOPHEN 48490090153 Active Baltazar Nickerson MD Active GABAPENTIN 300 MG ORAL CAPSULE 1 po qd x 2 days, then 1 po BID x 2 days, then 1 po TID GABAPENTIN 13488753934 No Longer Active Baltazar Childers MD Active NAPROXEN 500 MG ORAL TABLET 1 tablet by mouth twice daily NAPROXEN 29623822242 No Longer Active Baltazar Childers MD Active PROAIR HFA 108 (90 Base) MCG/ACT INHALATION AEROSOL SO LUTION 2 puffs four times a day as needed ALBUTEROL SULFATE 83148894324 Active Shun Arellano LPN Active DEPO-TESTOSTERONE 200 MG/ML INTRAMUSCULAR SOLUTION as directed TESTOSTERONE CYPIONATE 02195466713 No Longer Active Baltazar Childers MD Active LIPITOR 20 MG ORAL TABLET Take one by mouth daily in evening ATORVASTATIN CALCIUM 05884473090 No Longer Active Baltazar Childers MD Active CRESTOR 10 MG ORAL TABLET 1 by mouth every day ROSUVASTATIN CALCIUM 11116666548 No Longer Active Baltazar Childers MD Active PHENTERMINE HCL 37.5 MG ORAL TABLET Take one by mouth daily PHENTERMINE HCL 64618355419 No Longer Active Baltazar Childers MD Ac tive TIZANIDINE HCL 4 MG ORAL TABLET 1 daily as needed for muscle spa sm TIZANIDINE HCL 35918605986 No Longer Active Dawna Salazar RN Active [id number] 50-325-40 MG ORAL TABLET 1 fo ur times a day as needed for heacache [id number] 55502569025 Active KENDALL Juarez Active SUMATRIPTAN SUCCINATE 100 MG ORAL TABLET 1 tablet by m out at onset of migraine as needed SUMATRIPTAN SUCCINATE 17619949558 Active Baltazar Nickerson MD Active LORATADINE 10 MG ORAL TABLET Take one by mouth daily LORATADINE 10147590928 Active Baltazar Childers MD Active OMEPRAZOLE 20 MG ORAL CAPSULE DELAYED RELEASE Take one by mouth jostin ly OMEPRAZOLE 65237442463 Active Baltazar Childers MD Active HYDROXYZINE HCL 25 MG ORAL TABLET Take one by mouth daily HYDROXYZINE HCL 24319966295 Active Baltazar Childers MD Active ALPRAZOLAM 1 MG ORAL TABLET 1 [facility] 46037267736 Active Baltazar Childers MD Active METFORMIN HCL 1000 MG ORAL TABLET Take one by mouth twice daily METFORMIN HCL 59379997522 Active Baltazar Childers MD Active TIZANIDINE HCL 4 MG ORAL TABLET 1 daily as needed for muscle spa sm TIZANIDINE HCL 4 MG ORAL TABLET 562469 TIZANIDINE HCL Inactive PHENTERMINE HCL 37.5 MG ORAL TABLET Take one by mouth daily PHENTERMINE HCL 37.5 MG ORAL TABLET 352970 PHENTERMINE HCL Inac tive CRESTOR 10 MG ORAL TABLET 1 by mouth every day CRESTOR 10 MG ORAL TABLET 477644 ROSUVASTATIN CALCIUM Inactive LIPITOR 20 MG ORAL TABLET Take one by mouth daily in evening LIPITOR 20 MG ORAL TABLET 171761 ATORVASTATIN CALCIUM Inactive DEPO-TESTOSTERONE 200 MG/ML INTRAMUSCULAR SOLUTION as directed DEPO-TESTOSTERONE 200 MG/ML INTRAMUSCULAR SOLUTION 2303350 RUFINO TOSTERONE CYPIONATE Inactive NAPROXEN 500 MG ORAL TABLET 1 tablet by mouth twice daily NAPROXEN 500 MG ORAL TABLET 739511 NAPROXEN Inactive GABAPENTIN 300 MG ORAL CAPSULE 1 po qd x 2 days, then 1 po BID x 2 days, then 1 po TID GABAPENTIN 300 MG ORAL CAPSULE 960247 GABAP ENTIN Inactive ONETOUCH ULTRA BLUE IN VITRO STRIP Test twice a day 07/11/11 ONETOUCH ULTRA BLUE IN VITRO STRIP GLUCOSE BLOOD Inact amie NAPROXEN SODIUM 220 MG ORAL TABLET 1 three times a day as needed NAPROXEN SODIUM 220 MG ORAL TABLET 55871951666 NAPROXEN SODI UM Inactive TOUJEO SOLOSTAR 300 UNIT/ML SUBCUTANEOUS SOLUTION PEN- INJECTOR 10 units SC daily TOUJEO SOLOSTAR 300 UNIT/ML SUBCUTANEOUS SOLUTION PEN-INJECTOR INSULIN GLARGINE Inactive SUCRALFATE 1 GM ORAL TABLET 1 four times a day to coat the stoma ch SUCRALFATE 1 GM ORAL TABLET 111260 SUCRALFATE Inac tive GABAPENTIN 300 MG ORAL CAPSULE 1 three times a day 201 12/03/26 GABAPENTIN 300 MG ORAL CAPSULE 423596 GABAPENTIN Inactive TRAMADOL HCL 50 MG ORAL TABLET 1 twice a day as needed for pain TRAMADOL HCL 50 MG ORAL TABLET 449037 TRAMADOL HCL I nactive ZITHROMAX Z-ISAIAS 250 MG ORAL TABLET Take two tablets to day and then 1 tablet daily for 4 days ZITHROMAX Z-ISAIAS 250 MG ORAL TAB LET 678422 AZITHROMYCIN Inactive Immunizations Vaccine Administration Date Value Standard Floyd cription influenza immunization (Flu Vax) has been administered 05/11 Done according to patient influenza virus vaccine, unspecified for mulation pneumococcal immunization administered Pneumovax 23 [CVX33] pneumococcal polysaccharide vaccine, 23 valent Seasonal influenza vaccine, injectable, containing preservative, for > 3 years old (Afluria, FluLaval, Fluzone, Fluvirin, Fluarix, Agriflu(>= 18 yo)) Fluzone (>3 yrs.) [[id number]] Influenza, seasonal, inject able Seasonal influenza vaccine, injectable, containing preservative, for > 3 years old (Afluria, FluLaval, Fluzone, Fluvirin, Fluarix, Agriflu(>= 18 yo)) Fluzone (>3 yrs.) [[id number]] Influenza, seasonal, inject able Vital Signs Date [...] - Chem istry sodium, serum 136 mmol/L 069-845 2264/06/04 potassium, serum 4.9 mmol/L 3.5-5.2 chloride, serum 97 mmol/L 98-107 carbon dioxide, venous blood 35.3 mmol/L 21.0-32 .0 blood glucose 239 mg/dL 65-95 calcium, serum 10.6 mg/dL 8.5-10.1 urea nitrogen, blood 31 mg/dL 7-18 creatinine, serum 2.33 mg/dL 0.60-1.30 Estimated Glomerular Filtration Rate (calc) 23 (?) mL/min/1.73m2 = OR > 60 mL/min sodium, serum 141 mmol/L 871-972 2708/07/09 potassium, serum 4.9 mmol/L 3.5-5.2 chloride, serum [...] 0.40 mg/dL 0.00-1.00 cholesterol, serum 218 mg/dL 141-764 5511/12/18 triglyceride, serum, fasting 357 mg/dL 30-200 HDL cholesterol, serum 49 mg/dL 32-60 LDL cholesterol, serum 103.00 mg/dL 5.00-130.00 hemoglobin A1C, blood, as % of total hemoglobin 8.5 % 4.3-6.0 sodium, serum 142 mmol/L 507-813 5485/12/18 carbon dioxide, venous blood 32.5 mmol/L 21.0-32 [...] 0.36-3.74 Encounters Code Encounter Date Provider Facility CPT-39583 [id number] Vst-Est Level IV 15:03:32 CDT Charlie Childers MD [facility] [place]-75418 [id number] Vst-Est Level III 15:51:57 CDT Baltazar Childers MD [facility] [place]-49347 [id number] Vst-Est Level IV 15:14:58 CDT Charlie Childers MD [facility] [place]-46672 [id number] Vst-Est Level IV 15:12:52 MAINTENANCE TECH Charlie Childers MD [facility] [place]-87285 [id number] Vst-Est Level IV 15:30:55 MAINTENANCE TECH Charlie Childers MD [facility] CPT-01059 [id number] Vst-Est Level IV 13:49:06 C ELIOT Martinez PA-C [facility] CPT-25445 Level 4 Est. Patient 17:26:08 CDT Ann trujillo PA-C [facility] [place]-36108 [id number] Vst-Est Level V 14:26:27 CDT Aneudy Childers MD [facility] CPT-23056 Level 4 Est. Patient 17:05:37 CDT Baltazar Childers MD [facility] CPT-72323 Level 4 Est. Patient 16:21:19 MAINTENANCE TECH Baltazar Childers MD [facility] CPT-95730 Level 4 Est. Patient 12:25:11 CDT Baltazar Childers MD [facility] [place]-26589 Level 4 Est. Patient 14:22:31 CDT Baltazar Childers MD [facility] [place]-64828 Level 4 Est. Patient 15:44:38 CDT Shonna Elena CASTELLANOS [facility] [place]-23812 Level 4 Est. Patient 11:34:17 CDT Baltazar Childers MD [facility] [place]-19048 Level 3 Est. Patient 16:40:40 CDT Baltazar Childers MD [facility] [place]-35846 Level 4 Est. Patient 10:41:24 CDT Baltazar Childers MD [facility] [place]-98189 Level 4 Est. Patient 16:01:48 CDT Baltazar Childers MD [facility] [place]-24498 Level 4 Est. Patient 16:54:07 MAINTENANCE TECH Baltazar Childers MD [facility] [place]-91533 Level 4 Est. Patient 15:42:12 CDT Baltazar Childers MD [facility] CPT-64025 Level 4 Est. Patient 11:29:55 CDT Baltazar Childers MD [facility]-71700 Level 4 Est. Patient 14:15:19 CDT Baltazar Childers MD [facility] CPT-64436 Level 4 Est. Patient 12:20:13 CDT Baltazar Childers MD [facility] CPT-28824 Level 4 Est. Patient 14:52:45 MAINTENANCE TECH Baltazar Childers MD [facility] CPT-57414 Level 4 Est. Patient 14:18:34 MAINTENANCE TECH Baltazar Childers MD [facility]-92698 Level 4 Est. Patient 15:18:29 CDT Baltazar Childers MD [facility] CPT-34624 Level 3 Est. Patient 12:45:34 CDT Baltazar Childers MD [facility]-13059 Level 3 Est. Patient 10:10:11 CDT Baltazar Childers MD [facility] CPT-25101 Level 3 Est. Patient 14:07:50 CDT Baltazar Childers MD [facility] CPT-82299 Level 4 Est. Patient 12:26:10 MAINTENANCE TECH Baltazar Childers MD [facility] CPT-66843 Level 4 Est. Patient 14:45:38 CDT Baltazar Childers MD [facility] CPT-78108 Level 4 New Patient 12:30:48 CDT Baltazar hinton MD [facility] Procedures Code Procedure Name Date Entry Date Standard Desc ription CPT-24463 Venipuncture Draw Fee 15:19:00 CDT CPT-000 Give Appropriate Flu Vaccine 12:25:14 CDT 2 CPT-77761 First Vx - Ix admin via ID I M or jet injects without counseling by physician 13:08:59 CDT CPT-84612 Fluzone Quadrivalent Intramuscular Suspe nsion 0.5 ML 13:08:59 CDT CPT-86806 Venipuncture Draw Fee 12:04:12 CDT CPT-14446 Lipid - LAB USE ONLY 17:39:15 MAINTENANCE TECH 9 CPT-88004 HGBA1C - LAB USE ONLY 17:39:15 MAINTENANCE TECH CPT-90228 CMP - LAB USE ONLY 17:39:14 MAINTENANCE TECH CPT-74580 Venipuncture Draw Fee 17:39:14 MAINTENANCE TECH CPT-35564 First Vx - Ix admin via ID I M or jet injects without counseling by physician 16:55:17 MAINTENANCE TECH CPT-07447 Fluzone Quadrivalent Intramuscular Suspe nsion 0.5 ML 16:55:17 MAINTENANCE TECH CPT-29179 Renal Panel - LAB USE ONLY 17:39:20 CDT 201 10/31/07 CPT-99398 CBC - LAB USE ONLY 17:39:20 CDT CPT-40917 Venipuncture Draw Fee 17:39:20 CDT CPT-69414 Venipuncture Draw Fee 14:33:30 CDT CPT-48051 Renal Panel - LAB USE ONLY 14:33:30 CDT 201 10/31/07 CPT-06217 CBC - LAB USE ONLY 14:33:29 CDT CPT-42400 Venipuncture Draw Fee 14:50:21 MAINTENANCE TECH CPT-59033 Immunization Single Admin 17:35:35 CDT 2014 CPT-52440 Fluzone Quadrivalent preservative free ( >=3yrs.) 17:35:35 CDT CPT-13456 Venipuncture Draw Fee 12:10:27 MAINTENANCE TECH CPT-57325 Fluzone Quadrivalent Intramuscular Suspe nsion 0.5 ML 10:49:13 CDT CPT-03980 First Vx Component - Ix admi n via ID IM or jet inj without physician counseling 15:17:19 MAINTENANCE TECH CPT-98480 Pneumovax 23 15:17:19 MAINTENANCE TECH CPT-19670 Pneumovax 14:52:45 MAINTENANCE TECH CPT-70829 Venipuncture Draw Fee 14:06:30 MAINTENANCE TECH CPT-000 Give Appropriate Flu Vaccine 14:18:34 MAINTENANCE TECH 2 CPT-46359 Administration single or combination vac cine inc oral 14:46:00 MAINTENANCE TECH CPT-14186 Influenza split virus > age 3 14:46:00 MAINTENANCE TECH CPT-OV Office Visit 19:13:16 CDT CPT-21888 Zostavax 18:41:56 CDT CPT-78971 Administration single or combination vac cine inc oral 12:56:39 CDT CPT-13630 Zoster Vaccine (Zostavax) 12:56:39 CDT 2012 CPT-11658 Venipuncture Draw Fee 10:58:57 CDT CPT-61437 Sono pelvis non OB uterus ovaries cervix 17:45:04 CDT CPT-40021 Sono retroperitoneal complete kidneys an d bladder 17:14:36 CDT CPT-OV Office Visit 14:59:38 MAINTENANCE TECH CPT-J1070 Depo Testosterone 100 mg 14:50:13 CDT 03/05 CPT-44926 Abx/Therapy Injection 14:50:13 CDT CPT-38278 Administration single or combination vac cine inc oral 14:34:43 CDT CPT-27218 Influenza split virus > age 3 14:34:43 CDT CPT-J1070 Depo Testosterone 100 mg 17:37:13 CDT 01/11 CPT-11825 Abx/Therapy Injection 17:37:13 CDT CPT-15779 Venipuncture Draw Fee 16:30:13 CDT CPT-12979 Venipuncture Draw Fee 16:29:43 CDT CPT-J1070 Depo Testosterone 100 mg 14:45:38 CDT 01/11
--- OUTSIDE RECORDS SUMMARY | 2019-10-27 11:38 | XMS REPORT | Clinical Summary ---
Author Author Admin, Elba Lance [facility] Address Unknown Phone Unavailable Allergies, Adverse [...] ronary atherosclerosis of unspecified type of vessel, tribe or graft OTH NONSPC ABN FINDNG RAD&OTH [...] unspecified type, uncontrolled Heartburn 787.1 Active Baltazar Chliders MD Heartburn Hypothyroidism 244.9 Active Carina Tucker [...] and 13 units at night INSULIN GLARGINE 55463507077 Active Baltazar Childers MD Active ONGLYZA 2.5 MG ORAL TABLET 1 daily for diabetes SAXAGLIPTIN HCL 71126946021 Active Baltazar Childers MD Active TRAMADOL HCL 50 MG ORAL TABLET 1 twice a day as needed for pain TRAMADOL HCL 57721114156 No Longer Active Baltazar Childers MD Active ROBAXIN 500 MG ORAL TABLET Take 1.5 (one and one half) tabs once daily METHOCARBAMOL 93093414209 Active Baltazar Childers MD Active SYNTHROID 112 MCG ORAL TABLET Take one tablet a day LEVOTHYROXINE SODIUM 44893091840 Active Baltazar Childers MD Active TRUE METRIX AIR GLUCOSE METER DEVICE Use as directed BLOOD GLUCOSE MONITORING SUPPL 80432720786 Active Baltazar Childers MD Activ e TRUE METRIX BLOOD GLUCOSE TEST IN VITRO STRIP test blood sug ar BID Dx: E11.65 GLUCOSE BLOOD 16395438655 Active KENDALL Juarez Active NORTRIPTYLINE HCL 50 MG ORAL CAPSULE 1 twice a day for neuropathy 2 NORTRIPTYLINE HCL 99134034852 Active Baltazar Childers MD Acti ve ASPIRIN 81 MG TBEC Take one (1) tablet by mouth daily ASPIRIN 76166599715 Active Baltazar Childers MD Active GABAPENTIN 300 MG ORAL CAPSULE 1 three times a day 201 12/03/26 GABAPENTIN 31186595753 No Longer Active Baltazar Childers MD Activ e LISINOPRIL 20 MG ORAL TABLET 1 tablet by mouth daily at night 2016 LISINOPRIL 44439008990 Active Baltazar Childers MD Active ZITHROMAX Z-ISAIAS 250 MG ORAL TABLET Take two tablets to day and then 1 tablet daily for 4 days AZITHROMYCIN 11372123329 No Longer A ctive Baltazar Childers MD Active AMLODIPINE BESYLATE 5 MG ORAL TABLET 1 tab daily for HTN AMLODIPINE BESYLATE 52792824261 Active Baltazar Childers MD Active GLIPIZIDE 10 MG ORAL TABLET take 2 tablets twice daily GLIPIZIDE 67611971528 Active Baltazar Childers MD Active SUCRALFATE 1 GM ORAL TABLET 1 four times a day to coat the stoma ch SUCRALFATE 80475138248 No Longer Active Baltazar Childers MD Active PEN NEEDLES 31G X 6 MM use 1 daily INSULIN PEN NE EDLE 56575253086 Active KENDALL Juarez Active TOUJEO SOLOSTAR 300 UNIT/ML SUBCUTANEOUS SOLUTION PEN- INJECTOR 10 units SC daily INSULIN GLARGINE 06525901093 No Longer Active Rola abigail Guerrab RMA Active NAPROXEN SODIUM 220 MG ORAL TABLET 1 three times a day as needed NAPROXEN SODIUM 42617948638 No Longer Active Baltazar Childers MD Active ATORVASTATIN CALCIUM 20 MG ORAL TABLET Take 1 tab daily ATORVASTATIN CALCIUM 79526040504 Active Baltazar Childers MD A ctive FUROSEMIDE 40 MG ORAL TABLET Take one by mouth daily FUROSEMIDE 77894173956 Active Baltazar Childers MD Active LISINOPRIL 20 MG ORAL TABLET Take one by mouth daily at bedtime LISINOPRIL 08005577118 No Longer Active Baltazar Childers MD Active ONETOUCH ULTRA BLUE IN VITRO STRIP Test twice a day 07/11/11 GLUCOSE BLOOD 66757296120 No Longer Active Baltazar Childers MD Acti ve TRUEPLUS LANCETS 33G Test twice a day LANCETS 9608046 8027 Active KENDALL Juarez Active TRUEDRAW LANCING DEVICE Test twice a day LANCET DEVICES 70404766376 Active Baltazar Childers MD Active TRUETRACK BLOOD GLUCOSE w/Device KIT Test twice a day BLOOD GLUCOSE MONITORING SUPPL 53578550175 Active Baltazar Childers MD Activ e HYDROCODONE-ACETAMINOPHEN 7.5-325 MG ORAL TABLET Take 1 tab every 6-8 hours PRN HYDROCODONE-ACETAMINOPHEN 24571003879 Active Baltazar Nickerson MD Active GABAPENTIN 300 MG ORAL CAPSULE 1 po qd x 2 days, then 1 po BID x 2 days, then 1 po TID GABAPENTIN 57633999893 No Longer Active Baltazar Childers MD Active NAPROXEN 500 MG ORAL TABLET 1 tablet by mouth twice daily NAPROXEN 37507048653 No Longer Active Baltazar Childers MD Active PROAIR HFA 108 (90 Base) MCG/ACT INHALATION AEROSOL SO LUTION 2 puffs four times a day as needed ALBUTEROL SULFATE 46229498459 Active Shun Arellano LPN Active DEPO-TESTOSTERONE 200 MG/ML INTRAMUSCULAR SOLUTION as directed TESTOSTERONE CYPIONATE 26814557727 No Longer Active Baltazar Childers MD Active LIPITOR 20 MG ORAL TABLET Take one by mouth daily in evening ATORVASTATIN CALCIUM 10722036216 No Longer Active Baltazar Childers MD Active CRESTOR 10 MG ORAL TABLET 1 by mouth every day ROSUVASTATIN CALCIUM 93337360478 No Longer Active Baltazar Childers MD Active PHENTERMINE HCL 37.5 MG ORAL TABLET Take one by mouth daily PHENTERMINE HCL 53310245674 No Longer Active Baltazar Childers MD Ac tive TIZANIDINE HCL 4 MG ORAL TABLET 1 daily as needed for muscle spa sm TIZANIDINE HCL 14083470100 No Longer Active Dawna Salazar RN Active [id number] 50-325-40 MG ORAL TABLET 1 fo ur times a day as needed for heacache [id number] 63654902336 Active KENDALL Juarez Active SUMATRIPTAN SUCCINATE 100 MG ORAL TABLET 1 tablet by m out at onset of migraine as needed SUMATRIPTAN SUCCINATE 55942419764 Active Baltazar Nickerson MD Active LORATADINE 10 MG ORAL TABLET Take one by mouth daily LORATADINE 84402755076 Active Baltazar Childers MD Active OMEPRAZOLE 20 MG ORAL CAPSULE DELAYED RELEASE Take one by mouth jostin ly OMEPRAZOLE 78062837961 Active Baltazar Childers MD Active HYDROXYZINE HCL 25 MG ORAL TABLET Take one by mouth daily HYDROXYZINE HCL 39730323512 Active Baltazar Childers MD Active ALPRAZOLAM 1 MG ORAL TABLET 1 tablet by mouth [facility]AM 59660815446 Active Baltazar Childers MD Active METFORMIN HCL 1000 MG ORAL TABLET Take one by mouth twice daily METFORMIN HCL 72707811960 Active Baltazar Childers MD Active TIZANIDINE HCL 4 MG ORAL TABLET 1 daily as needed for muscle spa sm TIZANIDINE HCL 4 MG ORAL TABLET 075679 TIZANIDINE HCL Inactive PHENTERMINE HCL 37.5 MG ORAL TABLET Take one by mouth daily PHENTERMINE HCL 37.5 MG ORAL TABLET 739695 PHENTERMINE HCL Inac tive CRESTOR 10 MG ORAL TABLET 1 by mouth every day CRESTOR 10 MG ORAL TABLET 174681 ROSUVASTATIN CALCIUM Inactive LIPITOR 20 MG ORAL TABLET Take one by mouth daily in evening LIPITOR 20 MG ORAL TABLET 450929 ATORVASTATIN CALCIUM Inactive DEPO-TESTOSTERONE 200 MG/ML INTRAMUSCULAR SOLUTION as directed DEPO-TESTOSTERONE 200 MG/ML INTRAMUSCULAR SOLUTION 8536543 RUFINO TOSTERONE CYPIONATE Inactive NAPROXEN 500 MG ORAL TABLET 1 tablet by mouth twice daily NAPROXEN 500 MG ORAL TABLET 465805 NAPROXEN Inactive GABAPENTIN 300 MG ORAL CAPSULE 1 po qd x 2 days, then 1 po BID x 2 days, then 1 po TID GABAPENTIN 300 MG ORAL CAPSULE 058421 GABAP ENTIN Inactive ONETOUCH ULTRA BLUE IN VITRO STRIP Test twice a day 07/11/11 ONETOUCH ULTRA BLUE IN VITRO STRIP GLUCOSE BLOOD Inact amie NAPROXEN SODIUM 220 MG ORAL TABLET 1 three times a day as needed NAPROXEN SODIUM 220 MG ORAL TABLET 60266498320 NAPROXEN SODI UM Inactive TOUJEO SOLOSTAR 300 UNIT/ML SUBCUTANEOUS SOLUTION PEN- INJECTOR 10 units SC daily TOUJEO SOLOSTAR 300 UNIT/ML SUBCUTANEOUS SOLUTION PEN-INJECTOR INSULIN GLARGINE Inactive SUCRALFATE 1 GM ORAL TABLET 1 four times a day to coat the stoma ch SUCRALFATE 1 GM ORAL TABLET 010796 SUCRALFATE Inac tive GABAPENTIN 300 MG ORAL CAPSULE 1 three times a day 201 12/03/26 GABAPENTIN 300 MG ORAL CAPSULE 193432 GABAPENTIN Inactive TRAMADOL HCL 50 MG ORAL TABLET 1 twice a day as needed for pain TRAMADOL HCL 50 MG ORAL TABLET 398886 TRAMADOL HCL I nactive ZITHROMAX Z-ISAIAS 250 MG ORAL TABLET Take two tablets to day and then 1 tablet daily for 4 days ZITHROMAX Z-ISAIAS 250 MG ORAL TAB LET 784270 AZITHROMYCIN Inactive Immunizations Vaccine Administration Date Value Standard Floyd cription influenza immunization (Flu Vax) has been administered 05/11 Done according to patient influenza virus vaccine, unspecified for mulation pneumococcal immunization administered Pneumovax 23 [CVX33] pneumococcal polysaccharide vaccine, 23 valent Seasonal influenza vaccine, injectable, containing preservative, for > 3 years old (Afluria, FluLaval, Fluzone, Fluvirin, Fluarix, Agriflu(>= 18 yo)) Fluzone (>3 yrs.) [[id number]] Influenza, seasonal, inject able Seasonal influenza vaccine, injectable, containing preservative, for > 3 years old (Afluria, FluLaval, Fluzone, Fluvirin, Fluarix, Agriflu(>= 18 yo)) Fluzone (>3 yrs.) [GIC706] Influenza, seasonal, inject able Vital Signs Date [...] - Chem istry sodium, serum 136 mmol/L 825-310 1081/06/04 potassium, serum 4.9 mmol/L 3.5-5.2 chloride, serum 97 mmol/L 98-107 carbon dioxide, venous blood 35.3 mmol/L 21.0-32 .0 blood glucose 239 mg/dL 65-95 calcium, serum 10.6 mg/dL 8.5-10.1 urea nitrogen, blood 31 mg/dL 7-18 creatinine, serum 2.33 mg/dL 0.60-1.30 Estimated Glomerular Filtration Rate (calc) 23 (?) mL/min/1.73m2 = OR > 60 mL/min sodium, serum 141 mmol/L 844-688 7778/07/09 potassium, serum 4.9 mmol/L 3.5-5.2 chloride, serum [...] 0.40 mg/dL 0.00-1.00 cholesterol, serum 218 mg/dL 517-417 3038/12/18 triglyceride, serum, fasting 357 mg/dL 30-200 HDL cholesterol, serum 49 mg/dL 32-60 LDL cholesterol, serum 103.00 mg/dL 5.00-130.00 hemoglobin A1C, blood, as % of total hemoglobin 8.5 % 4.3-6.0 sodium, serum 142 mmol/L 909-447 8868/12/18 carbon dioxide, venous blood 32.5 mmol/L 21.0-32 [...] 0.36-3.74 Encounters Code Encounter Date Provider Facility CPT-89695 [id number] Vst-Est Level IV 15:03:32 CDT Charlie Childers MD [facility]-20000 [id number] Vst-Est Level III 15:51:57 CDT Baltazar Childers MD [facility]-78728 [id number] Vst-Est Level IV 15:14:58 CDT Charlie Childers MD [facility]-26821 [id number] Vst-Est Level IV 15:12:52 PHYSICAL INTEGRATION PRACTITIONER Charlie Childers MD [facility]-20639 [id number] Vst-Est Level IV 15:30:55 PHYSICAL INTEGRATION PRACTITIONER Charlie Childers MD [facility] CPT-00732 [id number] Vst-Est Level IV 13:49:06 C ELIOT Martinez PA-C [facility] CPT-51528 Level 4 Est. Patient 17:26:08 CDT Ann trujillo PA-C [facility]-58749 [id number] Vst-Est Level V 14:26:27 CDT Aneudy Childers MD [facility] CPT-18516 Level 4 Est. Patient 17:05:37 CDT Baltazar Childers MD [facility] CPT-64484 Level 4 Est. Patient 16:21:19 PHYSICAL INTEGRATION PRACTITIONER Baltazar Childers MD [facility] CPT-94115 Level 4 Est. Patient 12:25:11 CDT Baltazar Childers MD [facility]-30858 Level 4 Est. Patient 14:22:31 CDT Baltazar Childers MD [facility]-74117 Level 4 Est. Patient 15:44:38 CDT Shonna Elena CASTELLANOS [facility]-14513 Level 4 Est. Patient 11:34:17 CDT Baltazar Childers MD [facility]-34372 Level 3 Est. Patient 16:40:40 CDT Baltazar Childers MD [facility]-07662 Level 4 Est. Patient 10:41:24 CDT Baltazar Childers MD [facility]-80441 Level 4 Est. Patient 16:01:48 CDT Baltazar Childers MD [facility]-34598 Level 4 Est. Patient 16:54:07 PHYSICAL INTEGRATION PRACTITIONER Baltazar Childers MD [facility]-31217 Level 4 Est. Patient 15:42:12 CDT Baltazar Childers MD [facility] CPT-74167 Level 4 Est. Patient 11:29:55 CDT Baltazar Childers MD [facility]-54905 Level 4 Est. Patient 14:15:19 CDT Baltazar Childers MD [facility] CPT-98911 Level 4 Est. Patient 12:20:13 CDT Blatazar Childers MD [facility] CPT-90704 Level 4 Est. Patient 14:52:45 PHYSICAL INTEGRATION PRACTITIONER Baltazar Chiledrs MD [facility] CPT-20163 Level 4 Est. Patient 14:18:34 PHYSICAL INTEGRATION PRACTITIONER Baltazar Childers MD [facility]-37397 Level 4 Est. Patient 15:18:29 CDT Baltzaar Childers MD [facility] CPT-24359 Level 3 Est. Patient 12:45:34 CDT Baltazar Childers MD [facility]-08347 Level 3 Est. Patient 10:10:11 CDT Baltazar Childers MD [facility] CPT-64496 Level 3 Est. Patient 14:07:50 CDT Baltazar Childers MD [facility] CPT-94783 Level 4 Est. Patient 12:26:10 PHYSICAL INTEGRATION PRACTITIONER Baltazar Childers MD [facility] CPT-97356 Level 4 Est. Patient 14:45:38 CDT Baltazar Childers MD [facility] CPT-61391 Level 4 New Patient 12:30:48 CDT Baltazar hinton MD [facility] Procedures Code Procedure Name Date Entry Date Standard Desc ription CPT-01507 Venipuncture Draw Fee 15:19:00 CDT CPT-000 Give Appropriate Flu Vaccine 12:25:14 CDT 2 CPT-91399 First Vx - Ix admin via ID I M or jet injects without counseling by physician 13:08:59 CDT CPT-46892 Fluzone Quadrivalent Intramuscular Suspe nsion 0.5 ML 13:08:59 CDT CPT-89359 Venipuncture Draw Fee 12:04:12 CDT CPT-42554 Lipid - LAB USE ONLY 17:39:15 PHYSICAL INTEGRATION PRACTITIONER 9 CPT-37993 HGBA1C - LAB USE ONLY 17:39:15 PHYSICAL INTEGRATION PRACTITIONER CPT-34319 CMP - LAB USE ONLY 17:39:14 PHYSICAL INTEGRATION PRACTITIONER CPT-10017 Venipuncture Draw Fee 17:39:14 PHYSICAL INTEGRATION PRACTITIONER CPT-56971 First Vx - Ix admin via ID I M or jet injects without counseling by physician 16:55:17 PHYSICAL INTEGRATION PRACTITIONER CPT-37834 Fluzone Quadrivalent Intramuscular Suspe nsion 0.5 ML 16:55:17 PHYSICAL INTEGRATION PRACTITIONER CPT-78077 Renal Panel - LAB USE ONLY 17:39:20 CDT 201 10/31/07 CPT-21555 CBC - LAB USE ONLY 17:39:20 CDT CPT-48214 Venipuncture Draw Fee 17:39:20 CDT CPT-31597 Venipuncture Draw Fee 14:33:30 CDT CPT-71116 Renal Panel - LAB USE ONLY 14:33:30 CDT 201 10/31/07 CPT-27008 CBC - LAB USE ONLY 14:33:29 CDT CPT-58628 Venipuncture Draw Fee 14:50:21 PHYSICAL INTEGRATION PRACTITIONER CPT-37768 Immunization Single Admin 17:35:35 CDT 2014 CPT-67770 Fluzone Quadrivalent preservative free ( >=3yrs.) 17:35:35 CDT CPT-16974 Venipuncture Draw Fee 12:10:27 PHYSICAL INTEGRATION PRACTITIONER CPT-96679 Fluzone Quadrivalent Intramuscular Suspe nsion 0.5 ML 10:49:13 CDT CPT-61057 First Vx Component - Ix admi n via ID IM or jet inj without physician counseling 15:17:19 PHYSICAL INTEGRATION PRACTITIONER CPT-03428 Pneumovax 23 15:17:19 PHYSICAL INTEGRATION PRACTITIONER CPT-03166 Pneumovax 14:52:45 PHYSICAL INTEGRATION PRACTITIONER CPT-01854 Venipuncture Draw Fee 14:06:30 PHYSICAL INTEGRATION PRACTITIONER CPT-000 Give Appropriate Flu Vaccine 14:18:34 PHYSICAL INTEGRATION PRACTITIONER 2 CPT-83819 Administration single or combination vac cine inc oral 14:46:00 PHYSICAL INTEGRATION PRACTITIONER CPT-36024 Influenza split virus > age 3 14:46:00 PHYSICAL INTEGRATION PRACTITIONER CPT-OV Office Visit 19:13:16 CDT CPT-07024 Zostavax 18:41:56 CDT CPT-01998 Administration single or combination vac cine inc oral 12:56:39 CDT CPT-33242 Zoster Vaccine (Zostavax) 12:56:39 CDT 2012 CPT-64309 Venipuncture Draw Fee 10:58:57 CDT CPT-47288 Sono pelvis non OB uterus ovaries cervix 17:45:04 CDT CPT-81867 Sono retroperitoneal complete kidneys an d bladder 17:14:36 CDT CPT-OV Office Visit 14:59:38 PHYSICAL INTEGRATION PRACTITIONER CPT-J1070 Depo Testosterone 100 mg 14:50:13 CDT 03/05 CPT-24261 Abx/Therapy Injection 14:50:13 CDT CPT-48282 Administration single or combination vac cine inc oral 14:34:43 CDT CPT-60715 Influenza split virus > age 3 14:34:43 CDT CPT-J1070 Depo Testosterone 100 mg 17:37:13 CDT 01/11 CPT-96782 Abx/Therapy Injection 17:37:13 CDT CPT-28990 Venipuncture Draw Fee 16:30:13 CDT CPT-03921 Venipuncture Draw Fee 16:29:43 CDT CPT-J1070 Depo Testosterone 100 mg 14:45:38 CDT 01/11
--- OUTSIDE RECORDS SUMMARY | 2019-10-27 11:38 | XMS REPORT | Clinical Summary ---
Author Author Admin, Elba [employer] Address Unknown Phone Unavailable Allergies, Adverse Reactions, [...] ronary atherosclerosis of unspecified type of vessel, kaw or graft OTH NONSPC ABN FINDNG RAD&OTH [...] and 13 units at night INSULIN GLARGINE 99620367738 Active Baltazar Childers MD Active ONGLYZA 2.5 MG ORAL TABLET 1 daily for diabetes SAXAGLIPTIN HCL 40404592336 Active Baltazar Childers MD Active TRAMADOL HCL 50 MG ORAL TABLET 1 twice a day as needed for pain TRAMADOL HCL 89092265915 No Longer Active Baltazar Childers MD Active ROBAXIN 500 MG ORAL TABLET Take 1.5 (one and one half) tabs once daily METHOCARBAMOL 25738550934 Active Baltazar Childers MD Active SYNTHROID 112 MCG ORAL TABLET Take one tablet a day LEVOTHYROXINE SODIUM 93289245847 Active Baltazar Childers MD Active TRUE METRIX AIR GLUCOSE METER DEVICE Use as directed BLOOD GLUCOSE MONITORING SUPPL 47232435129 Active Baltazar Childers MD Activ e TRUE METRIX BLOOD GLUCOSE TEST IN VITRO STRIP test blood sug ar BID Dx: E11.65 GLUCOSE BLOOD 17067745500 Active KENDALL Juarez Active NORTRIPTYLINE HCL 50 MG ORAL CAPSULE 1 twice a day for neuropathy 2 NORTRIPTYLINE HCL 55578923317 Active Baltazar Childers MD Acti ve ASPIRIN 81 MG TBEC Take one (1) tablet by mouth daily ASPIRIN 52855397381 Active Baltazar Childers MD Active GABAPENTIN 300 MG ORAL CAPSULE 1 three times a day 201 12/03/26 GABAPENTIN 03861737194 No Longer Active Baltazar Childers MD Activ e LISINOPRIL 20 MG ORAL TABLET 1 tablet by mouth daily at night 2016 LISINOPRIL 16275701437 Active Baltazar Childers MD Active ZITHROMAX Z-ISAIAS 250 MG ORAL TABLET Take two tablets to day and then 1 tablet daily for 4 days AZITHROMYCIN 43713255894 No Longer A ctive Baltazar Childers MD Active AMLODIPINE BESYLATE 5 MG ORAL TABLET 1 tab daily for HTN AMLODIPINE BESYLATE 39393695734 Active Baltazar Childers MD Active GLIPIZIDE 10 MG ORAL TABLET take 2 tablets twice daily GLIPIZIDE 53579006902 Active Baltazar Childers MD Active SUCRALFATE 1 GM ORAL TABLET 1 four times a day to coat the stoma ch SUCRALFATE 11240776197 No Longer Active Baltazar Childers MD Active PEN NEEDLES 31G X 6 MM use 1 daily INSULIN PEN NE EDLE 51314156341 Active KENDALL Juarez Active TOUJEO SOLOSTAR 300 UNIT/ML SUBCUTANEOUS SOLUTION PEN- INJECTOR 10 units SC daily INSULIN GLARGINE 88848804648 No Longer Active Rola abigail Guerrab RMA Active NAPROXEN SODIUM 220 MG ORAL TABLET 1 three times a day as needed NAPROXEN SODIUM 09412454015 No Longer Active Baltazar Childers MD Active ATORVASTATIN CALCIUM 20 MG ORAL TABLET Take 1 tab daily ATORVASTATIN CALCIUM 90662901158 Active Baltazar Childers MD A ctive FUROSEMIDE 40 MG ORAL TABLET Take one by mouth daily FUROSEMIDE 46622367725 Active Baltazar Childers MD Active LISINOPRIL 20 MG ORAL TABLET Take one by mouth daily at bedtime LISINOPRIL 95273218031 No Longer Active Baltazar Childers MD Active ONETOUCH ULTRA BLUE IN VITRO STRIP Test twice a day 07/11/11 GLUCOSE BLOOD 90469966184 No Longer Active Baltazar Childers MD Acti ve TRUEPLUS LANCETS 33G Test twice a day LANCETS 5069729 2788 Active KENDALL Juarez Active TRUEDRAW LANCING DEVICE Test twice a day LANCET DEVICES 06177300414 Active Baltazar Childers MD Active TRUETRACK BLOOD GLUCOSE w/Device KIT Test twice a day BLOOD GLUCOSE MONITORING SUPPL 33158966454 Active Baltazar Childers MD Activ e HYDROCODONE-ACETAMINOPHEN 7.5-325 MG ORAL TABLET Take 1 tab every 6-8 hours PRN HYDROCODONE-ACETAMINOPHEN 15175055005 Active Baltazar Nickerson MD Active GABAPENTIN 300 MG ORAL CAPSULE 1 po qd x 2 days, then 1 po BID x 2 days, then 1 po TID GABAPENTIN 00195340283 No Longer Active Baltazar Childers MD Active NAPROXEN 500 MG ORAL TABLET 1 tablet by mouth twice daily NAPROXEN 45874787646 No Longer Active Baltazar Childers MD Active PROAIR HFA 108 (90 Base) MCG/ACT INHALATION AEROSOL SO LUTION 2 puffs four times a day as needed ALBUTEROL SULFATE 02417674551 Active Shun Arellano LPN Active DEPO-TESTOSTERONE 200 MG/ML INTRAMUSCULAR SOLUTION as directed TESTOSTERONE CYPIONATE 30460995047 No Longer Active Baltazar Childers MD Active LIPITOR 20 MG ORAL TABLET Take one by mouth daily in evening ATORVASTATIN CALCIUM 21695242700 No Longer Active Baltazar Childers MD Active CRESTOR 10 MG ORAL TABLET 1 by mouth every day ROSUVASTATIN CALCIUM 64708023372 No Longer Active Baltazar Childers MD Active PHENTERMINE HCL 37.5 MG ORAL TABLET Take one by mouth daily PHENTERMINE HCL 17515641147 No Longer Active Baltazar Childers MD Ac tive TIZANIDINE HCL 4 MG ORAL TABLET 1 daily as needed for muscle spa sm TIZANIDINE HCL 65040966659 No Longer Active Dawna Salazar RN Active [id number] 50-325-40 MG ORAL TABLET 1 fo ur times a day as needed for heacache [id number]-[id number] 79739927124 Active KENDALL Juarez Active SUMATRIPTAN SUCCINATE 100 MG ORAL TABLET 1 tablet by m out at onset of migraine as needed SUMATRIPTAN SUCCINATE 72372842142 Active Baltazar Nickerson MD Active LORATADINE 10 MG ORAL TABLET Take one by mouth daily LORATADINE 33676978949 Active Baltazar Childers MD Active OMEPRAZOLE 20 MG ORAL CAPSULE DELAYED RELEASE Take one by mouth jostin ly OMEPRAZOLE 89673988168 Active Baltazar Childers MD Active HYDROXYZINE HCL 25 MG ORAL TABLET Take one by mouth daily HYDROXYZINE HCL 53747323175 Active Baltazar Childers MD Active ALPRAZOLAM 1 MG ORAL TABLET 1 tablet [facility] 03068442831 Active Baltazar Childers MD Active METFORMIN HCL 1000 MG ORAL TABLET Take one by mouth twice daily METFORMIN HCL 68980874299 Active Baltazar Childers MD Active TIZANIDINE HCL 4 MG ORAL TABLET 1 daily as needed for muscle spa sm TIZANIDINE HCL 4 MG ORAL TABLET 281613 TIZANIDINE HCL Inactive PHENTERMINE HCL 37.5 MG ORAL TABLET Take one by mouth daily PHENTERMINE HCL 37.5 MG ORAL TABLET 963424 PHENTERMINE HCL Inac tive CRESTOR 10 MG ORAL TABLET 1 by mouth every day CRESTOR 10 MG ORAL TABLET 066569 ROSUVASTATIN CALCIUM Inactive LIPITOR 20 MG ORAL TABLET Take one by mouth daily in evening LIPITOR 20 MG ORAL TABLET 320898 ATORVASTATIN CALCIUM Inactive DEPO-TESTOSTERONE 200 MG/ML INTRAMUSCULAR SOLUTION as directed DEPO-TESTOSTERONE 200 MG/ML INTRAMUSCULAR SOLUTION 0110137 RUFINO TOSTERONE CYPIONATE Inactive NAPROXEN 500 MG ORAL TABLET 1 tablet by mouth twice daily NAPROXEN 500 MG ORAL TABLET 763387 NAPROXEN Inactive GABAPENTIN 300 MG ORAL CAPSULE 1 po qd x 2 days, then 1 po BID x 2 days, then 1 po TID GABAPENTIN 300 MG ORAL CAPSULE 827430 GABAP ENTIN Inactive ONETOUCH ULTRA BLUE IN VITRO STRIP Test twice a day 07/11/11 ONETOUCH ULTRA BLUE IN VITRO STRIP GLUCOSE BLOOD Inact amie NAPROXEN SODIUM 220 MG ORAL TABLET 1 three times a day as needed NAPROXEN SODIUM 220 MG ORAL TABLET 98594304233 NAPROXEN SODI UM Inactive TOUJEO SOLOSTAR 300 UNIT/ML SUBCUTANEOUS SOLUTION PEN- INJECTOR 10 units SC daily TOUJEO SOLOSTAR 300 UNIT/ML SUBCUTANEOUS SOLUTION PEN-INJECTOR INSULIN GLARGINE Inactive SUCRALFATE 1 GM ORAL TABLET 1 four times a day to coat the stoma ch SUCRALFATE 1 GM ORAL TABLET 335220 SUCRALFATE Inac tive GABAPENTIN 300 MG ORAL CAPSULE 1 three times a day 201 12/03/26 GABAPENTIN 300 MG ORAL CAPSULE 036344 GABAPENTIN Inactive TRAMADOL HCL 50 MG ORAL TABLET 1 twice a day as needed for pain TRAMADOL HCL 50 MG ORAL TABLET 305282 TRAMADOL HCL I nactive ZITHROMAX Z-ISAIAS 250 MG ORAL TABLET Take two tablets to day and then 1 tablet daily for 4 days ZITHROMAX Z-ISAIAS 250 MG ORAL TAB LET 585331 AZITHROMYCIN Inactive Immunizations Vaccine Administration Date Value Standard Floyd cription influenza immunization (Flu Vax) has been administered 05/11 Done according to patient influenza virus vaccine, unspecified for mulation pneumococcal immunization administered Pneumovax 23 [CVX33] pneumococcal polysaccharide vaccine, 23 valent Seasonal influenza vaccine, injectable, containing preservative, for > 3 years old (Afluria, FluLaval, Fluzone, Fluvirin, Fluarix, Agriflu(>= 18 yo)) Fluzone (>3 yrs.) [RII704] Influenza, seasonal, inject able Seasonal influenza vaccine, injectable, containing preservative, for > 3 years old (Afluria, FluLaval, Fluzone, Fluvirin, Fluarix, Agriflu(>= 18 yo)) Fluzone (>3 yrs.) [SUN118] Influenza, seasonal, inject able Vital Signs Date [...] Report: Basic Metabolic Panel - Chem istry carbon dioxide, venous blood 35.3 mmol/L 21.0-32 .0 urea nitrogen, blood 31 mg/dL 7-18 creatinine, serum 2.33 mg/dL 0.60-1.30 Estimated Glomerular Filtration Rate (calc) 23 (?) mL/min/1.73m2 = OR > 60 mL/min sodium, serum 141 mmol/L 245-598 1796/07/09 potassium, serum 4.9 mmol/L 3.5-5.2 chloride, serum 103 mmol/L 98-107 carbon dioxide, venous blood 35.1 mmol/L 21.0-32 .0 blood glucose 203 mg/dL 65-95 calcium, serum 9.8 mg/dL 8.5-10.1 urea nitrogen, blood 13 mg/dL 7-18 creatinine, serum 1.76 mg/dL 0.60-1.30 Estimated Glomerular Filtration Rate (calc) 31 (?) mL/min/1.73m2 = OR > 60 mL/min chloride, serum 97 mmol/L 98-107 potassium, serum 4.9 mmol/L 3.5-5.2 sodium, serum 136 mmol/L 069-017 9246/06/04 blood glucose 239 mg/dL 65-95 calcium, serum 10.6 mg/dL 8.5-10.1 Lab Report: HGBA1C - Chemistry hemoglobin A1C, blood, as % of total hemoglobin 8.0 % 4.3-6.0 hemoglobin A1C, blood, as % of total hemoglobin 7.4 % 4.3-6.0 Lab Report: HGBA1C, CBC, Comp. Metabolic Panel, Cholesterol, Triglycerid ... - Chemistry calcium, serum 9.2 mg/dL 8.5-10.1 bilirubin, serum, total 0.40 mg/dL 0.00-1.00 cholesterol, serum 218 mg/dL 074-733 9076/12/18 triglyceride, serum, fasting 357 mg/dL 30-200 HDL cholesterol, serum 49 mg/dL 32-60 LDL cholesterol, serum 103.00 mg/dL 5.00-130.00 hemoglobin A1C, blood, as % of total hemoglobin 8.5 % 4.3-6.0 sodium, serum 142 mmol/L 676-182 3831/12/18 carbon dioxide, venous blood 32.5 mmol/L 21.0-32 [...] 0.36-3.74 Encounters Code Encounter Date Provider Facility CPT-66713 [id number] Vst-Est Level IV 15:03:32 CDT Charlie Childers MD [facility]-13240 [id number] Vst-Est Level III 15:51:57 CDT Baltazar Childers MD [facility]-11244 [id number] Vst-Est Level IV 15:14:58 CDT Charlie Childers MD [facility]-99483 [id number] Vst-Est Level IV 15:12:52 CRAFT RECRUITER Charlie Childers MD [facility]-82351 [id number] Vst-Est Level IV 15:30:55 CRAFT RECRUITER Charlie Childers MD [facility] CPT-87258 [id number] Vst-Est Level IV 13:49:06 C ELIOT Martinez PA-C [facility] CPT-91647 Level 4 Est. Patient 17:26:08 CDT Ann trujillo PA-C [facility]-83118 55639-Rsr Vst-Est Level V 14:26:27 CDT Aneudy Childers MD [facility] CPT-40694 Level 4 Est. Patient 17:05:37 CDT Baltazar Childers MD [facility] CPT-83839 Level 4 Est. Patient 16:21:19 CRAFT RECRUITER Baltazar Childers MD [facility] CPT-80389 Level 4 Est. Patient 12:25:11 CDT Baltazar Childers MD [facility]-64833 Level 4 Est. Patient 14:22:31 CDT Baltazar Childers MD [facility]-97078 Level 4 Est. Patient 15:44:38 CDT Shonna Elena CASTELLANOS [facility]-28998 Level 4 Est. Patient 11:34:17 CDT Baltazar Childers MD [facility]-85962 Level 3 Est. Patient 16:40:40 CDT Baltazar Childers MD [facility]-90015 Level 4 Est. Patient 10:41:24 CDT Baltazar Childers MD [facility]-06794 Level 4 Est. Patient 16:01:48 CDT Baltazar Childers MD [facility]-77466 Level 4 Est. Patient 16:54:07 CRAFT RECRUITER Baltazar Childers MD [facility]-49802 Level 4 Est. Patient 15:42:12 CDT Baltazar Childers MD [facility] CPT-91031 Level 4 Est. Patient 11:29:55 CDT Baltazar Childers MD [facility]-75067 Level 4 Est. Patient 14:15:19 CDT Baltazar Childers MD [facility] CPT-08617 Level 4 Est. Patient 12:20:13 CDT Baltazar Childers MD [facility] CPT-87422 Level 4 Est. Patient 14:52:45 CRAFT RECRUITER Baltazar Childers MD [facility] CPT-01703 Level 4 Est. Patient 14:18:34 CRAFT RECRUITER Baltazar Childers MD [facility]-65592 Level 4 Est. Patient 15:18:29 CDT Baltazar Childers MD [facility] CPT-91817 Level 3 Est. Patient 12:45:34 CDT Baltazar Childers MD [facility]-96465 Level 3 Est. Patient 10:10:11 CDT Baltazar Childers MD [facility] CPT-93626 Level 3 Est. Patient 14:07:50 CDT Baltazar Childers MD [facility] CPT-29085 Level 4 Est. Patient 12:26:10 CRAFT RECRUITER Baltazar Childers MD [facility] CPT-68560 Level 4 Est. Patient 14:45:38 CDT Baltazar Childers MD [facility] CPT-46983 Level 4 New Patient 12:30:48 CDT Baltazar hinton MD [facility] Procedures Code Procedure Name Date Entry Date Standard Desc ription CPT-54580 Venipuncture Draw Fee 15:19:00 CDT CPT-000 Give Appropriate Flu Vaccine 12:25:14 CDT 2 CPT-46692 First Vx - Ix admin via ID I M or jet injects without counseling by physician 13:08:59 CDT CPT-88750 Fluzone Quadrivalent Intramuscular Suspe nsion 0.5 ML 13:08:59 CDT CPT-09223 Venipuncture Draw Fee 12:04:12 CDT CPT-91687 Lipid - LAB USE ONLY 17:39:15 CRAFT RECRUITER 9 CPT-54605 HGBA1C - LAB USE ONLY 17:39:15 CRAFT RECRUITER CPT-81656 CMP - LAB USE ONLY 17:39:14 CRAFT RECRUITER CPT-16159 Venipuncture Draw Fee 17:39:14 CRAFT RECRUITER CPT-95627 First Vx - Ix admin via ID I M or jet injects without counseling by physician 16:55:17 CRAFT RECRUITER CPT-92793 Fluzone Quadrivalent Intramuscular Suspe nsion 0.5 ML 16:55:17 CRAFT RECRUITER CPT-91798 Renal Panel - LAB USE ONLY 17:39:20 CDT 201 10/31/07 CPT-41166 CBC - LAB USE ONLY 17:39:20 CDT CPT-34943 Venipuncture Draw Fee 17:39:20 CDT CPT-25716 Venipuncture Draw Fee 14:33:30 CDT CPT-56917 Renal Panel - LAB USE ONLY 14:33:30 CDT 201 10/31/07 CPT-36242 CBC - LAB USE ONLY 14:33:29 CDT CPT-25809 Venipuncture Draw Fee 14:50:21 CRAFT RECRUITER CPT-49612 Immunization Single Admin 17:35:35 CDT 2014 CPT-82362 Fluzone Quadrivalent preservative free ( >=3yrs.) 17:35:35 CDT CPT-58043 Venipuncture Draw Fee 12:10:27 CRAFT RECRUITER CPT-52023 Fluzone Quadrivalent Intramuscular Suspe nsion 0.5 ML 10:49:13 CDT CPT-49055 First Vx Component - Ix admi n via ID IM or jet inj without physician counseling 15:17:19 CRAFT RECRUITER CPT-80055 Pneumovax 23 15:17:19 CRAFT RECRUITER CPT-71965 Pneumovax 14:52:45 CRAFT RECRUITER CPT-73647 Venipuncture Draw Fee 14:06:30 CRAFT RECRUITER CPT-000 Give Appropriate Flu Vaccine 14:18:34 CRAFT RECRUITER 2 CPT-15511 Administration single or combination vac cine inc oral 14:46:00 CRAFT RECRUITER CPT-11677 Influenza split virus > age 3 14:46:00 CRAFT RECRUITER CPT-OV Office Visit 19:13:16 CDT CPT-19117 Zostavax 18:41:56 CDT CPT-32203 Administration single or combination vac cine inc oral 12:56:39 CDT CPT-13694 Zoster Vaccine (Zostavax) 12:56:39 CDT 2012 CPT-55907 Venipuncture Draw Fee 10:58:57 CDT CPT-54129 Sono pelvis non OB uterus ovaries cervix 17:45:04 CDT CPT-85248 Sono retroperitoneal complete kidneys an d bladder 17:14:36 CDT CPT-OV Office Visit 14:59:38 CRAFT RECRUITER CPT-J1070 Depo Testosterone 100 mg 14:50:13 CDT 03/05 CPT-86611 Abx/Therapy Injection 14:50:13 CDT CPT-00602 Administration single or combination vac cine inc oral 14:34:43 CDT CPT-14718 Influenza split virus > age 3 14:34:43 CDT CPT-J1070 Depo Testosterone 100 mg 17:37:13 CDT 01/11 CPT-78998 Abx/Therapy Injection 17:37:13 CDT CPT-19461 Venipuncture Draw Fee 16:30:13 CDT CPT-37822 Venipuncture Draw Fee 16:29:43 CDT CPT-J1070 Depo Testosterone 100 mg 14:45:38 CDT 01/11
--- OUTSIDE RECORDS SUMMARY | 2019-10-27 11:38 | XMS REPORT | Clinical Summary ---
[...] of status migrainosus HYPERLIPIDEMIA 272.4 Refinement Baltazar Chiledrs MD Other and unspecified hyperlipidemia Familial hypercholesterolemia [...] ronary atherosclerosis of unspecified type of vessel, bishop paiute or graft OTH NONSPC ABN FINDNG RAD&OTH [...] and 13 units at night INSULIN GLARGINE 23884396695 Active Baltazar Childers MD Active ONGLYZA 2.5 MG ORAL TABLET 1 daily for diabetes SAXAGLIPTIN HCL 62399478639 Active Baltazar Childers MD Active TRAMADOL HCL 50 MG ORAL TABLET 1 twice a day as needed for pain TRAMADOL HCL 40546198117 No Longer Active Baltazar Childers MD Active ROBAXIN 500 MG ORAL TABLET Take 1.5 (one and one half) tabs once daily METHOCARBAMOL 94214627218 Active Baltazar Childers MD Active SYNTHROID 112 MCG ORAL TABLET Take one tablet a day LEVOTHYROXINE SODIUM 56581240472 Active Baltazar Childers MD Active TRUE METRIX AIR GLUCOSE METER DEVICE Use as directed BLOOD GLUCOSE MONITORING SUPPL 45336686306 Active Baltazar Childers MD Activ e TRUE METRIX BLOOD GLUCOSE TEST IN VITRO STRIP test blood sug ar BID Dx: E11.65 GLUCOSE BLOOD 44654391275 Active KENDALL Juarez Active NORTRIPTYLINE HCL 50 MG ORAL CAPSULE 1 twice a day for neuropathy 2 NORTRIPTYLINE HCL 53196657704 Active Baltazar Childers MD Acti ve ASPIRIN 81 MG TBEC Take one (1) tablet by mouth daily ASPIRIN 83091581720 Active Baltazar Childers MD Active GABAPENTIN 300 MG ORAL CAPSULE 1 three times a day 201 12/03/26 GABAPENTIN 02243378372 No Longer Active Baltazar Childers MD Activ e LISINOPRIL 20 MG ORAL TABLET 1 tablet by mouth daily at night 2016 LISINOPRIL 63133811878 Active Baltazar Childers MD Active ZITHROMAX Z-ISAIAS 250 MG ORAL TABLET Take two tablets to day and then 1 tablet daily for 4 days AZITHROMYCIN 46917455727 No Longer A ctive Baltazar Childers MD Active AMLODIPINE BESYLATE 5 MG ORAL TABLET 1 tab daily for HTN AMLODIPINE BESYLATE 22028527861 Active Baltazar Childers MD Active GLIPIZIDE 10 MG ORAL TABLET take 2 tablets twice daily GLIPIZIDE 24398872071 Active Baltazar Childers MD Active SUCRALFATE 1 GM ORAL TABLET 1 four times a day to coat the stoma ch SUCRALFATE 31702212713 No Longer Active Baltazar Childers MD Active PEN NEEDLES 31G X 6 MM use 1 daily INSULIN PEN NE EDLE 88535025005 Active KENDALL Juarez Active TOUJEO SOLOSTAR 300 UNIT/ML SUBCUTANEOUS SOLUTION PEN- INJECTOR 10 units SC daily INSULIN GLARGINE 99805155251 No Longer Active Rola abigail Guerrab RMA Active NAPROXEN SODIUM 220 MG ORAL TABLET 1 three times a day as needed NAPROXEN SODIUM 24895566868 No Longer Active Baltazar Childers MD Active ATORVASTATIN CALCIUM 20 MG ORAL TABLET Take 1 tab daily ATORVASTATIN CALCIUM 28070248716 Active Baltazar Childers MD A ctive FUROSEMIDE 40 MG ORAL TABLET Take one by mouth daily FUROSEMIDE 85603676354 Active Baltazar Childers MD Active LISINOPRIL 20 MG ORAL TABLET Take one by mouth daily at bedtime LISINOPRIL 42745598176 No Longer Active Baltazar Childers MD Active ONETOUCH ULTRA BLUE IN VITRO STRIP Test twice a day 07/11/11 GLUCOSE BLOOD 74249430750 No Longer Active Baltazar Childers MD Acti ve TRUEPLUS LANCETS 33G Test twice a day LANCETS 6736583 5627 Active KENDALL Juarez Active TRUEDRAW LANCING DEVICE Test twice a day LANCET DEVICES 24835201919 Active Baltazar Childers MD Active TRUETRACK BLOOD GLUCOSE w/Device KIT Test twice a day BLOOD GLUCOSE MONITORING SUPPL 41423924504 Active Baltazar Childers MD Activ e HYDROCODONE-ACETAMINOPHEN 7.5-325 MG ORAL TABLET Take 1 tab every 6-8 hours PRN HYDROCODONE-ACETAMINOPHEN 29867512711 Active Baltazar Nickerson MD Active GABAPENTIN 300 MG ORAL CAPSULE 1 po qd x 2 days, then 1 po BID x 2 days, then 1 po TID GABAPENTIN 64729063788 No Longer Active Baltazar Childers MD Active NAPROXEN 500 MG ORAL TABLET 1 tablet by mouth twice daily NAPROXEN 26757355783 No Longer Active Baltazar Childers MD Active PROAIR HFA 108 (90 Base) MCG/ACT INHALATION AEROSOL SO LUTION 2 puffs four times a day as needed ALBUTEROL SULFATE 11696148134 Active Shun Arellano LPN Active DEPO-TESTOSTERONE 200 MG/ML INTRAMUSCULAR SOLUTION as directed TESTOSTERONE CYPIONATE 14029862305 No Longer Active Baltazar Childers MD Active LIPITOR 20 MG ORAL TABLET Take one by mouth daily in evening ATORVASTATIN CALCIUM 30234239011 No Longer Active Baltazar Childers MD Active CRESTOR 10 MG ORAL TABLET 1 by mouth every day ROSUVASTATIN CALCIUM 52125137296 No Longer Active Baltazar Childers MD Active PHENTERMINE HCL 37.5 MG ORAL TABLET Take one by mouth daily PHENTERMINE HCL 10103663679 No Longer Active Baltazar Childers MD Ac tive TIZANIDINE HCL 4 MG ORAL TABLET 1 daily as needed for muscle spa sm TIZANIDINE HCL 21119101177 No Longer Active Dawna Salazar RN Active [id number] 50-325-40 MG ORAL TABLET 1 fo ur times a day as needed for heacache [id number] 15039207081 Active KENDALL Juarez Active SUMATRIPTAN SUCCINATE 100 MG ORAL TABLET 1 tablet by m out at onset of migraine as needed SUMATRIPTAN SUCCINATE 58737246215 Active Baltazar Nickerson MD Active LORATADINE 10 MG ORAL TABLET Take one by mouth daily LORATADINE 09938662034 Active Baltazra Childers MD Active OMEPRAZOLE 20 MG ORAL CAPSULE DELAYED RELEASE Take one by mouth jostin ly OMEPRAZOLE 12375977662 Active Baltazar Childers MD Active HYDROXYZINE HCL 25 MG ORAL TABLET Take one by mouth daily HYDROXYZINE HCL 24176161533 Active Baltazar Childers MD Active ALPRAZOLAM 1 MG ORAL TABLET 1 [facility] 98440055971 Active Baltazar Childers MD Active METFORMIN HCL 1000 MG ORAL TABLET Take one by mouth twice daily METFORMIN HCL 74576806833 Active Baltazar Childers MD Active TIZANIDINE HCL 4 MG ORAL TABLET 1 daily as needed for muscle spa sm TIZANIDINE HCL 4 MG ORAL TABLET 065492 TIZANIDINE HCL Inactive PHENTERMINE HCL 37.5 MG ORAL TABLET Take one by mouth daily PHENTERMINE HCL 37.5 MG ORAL TABLET 530245 PHENTERMINE HCL Inac tive CRESTOR 10 MG ORAL TABLET 1 by mouth every day CRESTOR 10 MG ORAL TABLET 294418 ROSUVASTATIN CALCIUM Inactive LIPITOR 20 MG ORAL TABLET Take one by mouth daily in evening LIPITOR 20 MG ORAL TABLET 791833 ATORVASTATIN CALCIUM Inactive DEPO-TESTOSTERONE 200 MG/ML INTRAMUSCULAR SOLUTION as directed DEPO-TESTOSTERONE 200 MG/ML INTRAMUSCULAR SOLUTION 2481955 RUFINO TOSTERONE CYPIONATE Inactive NAPROXEN 500 MG ORAL TABLET 1 tablet by mouth twice daily NAPROXEN 500 MG ORAL TABLET 758874 NAPROXEN Inactive GABAPENTIN 300 MG ORAL CAPSULE 1 po qd x 2 days, then 1 po BID x 2 days, then 1 po TID GABAPENTIN 300 MG ORAL CAPSULE 922337 GABAP ENTIN Inactive ONETOUCH ULTRA BLUE IN VITRO STRIP Test twice a day 07/11/11 ONETOUCH ULTRA BLUE IN VITRO STRIP GLUCOSE BLOOD Inact amie NAPROXEN SODIUM 220 MG ORAL TABLET 1 three times a day as needed NAPROXEN SODIUM 220 MG ORAL TABLET 07106746327 NAPROXEN SODI UM Inactive TOUJEO SOLOSTAR 300 UNIT/ML SUBCUTANEOUS SOLUTION PEN- INJECTOR 10 units SC daily TOUJEO SOLOSTAR 300 UNIT/ML SUBCUTANEOUS SOLUTION PEN-INJECTOR INSULIN GLARGINE Inactive SUCRALFATE 1 GM ORAL TABLET 1 four times a day to coat the stoma ch SUCRALFATE 1 GM ORAL TABLET 985580 SUCRALFATE Inac tive GABAPENTIN 300 MG ORAL CAPSULE 1 three times a day 201 12/03/26 GABAPENTIN 300 MG ORAL CAPSULE 953642 GABAPENTIN Inactive TRAMADOL HCL 50 MG ORAL TABLET 1 twice a day as needed for pain TRAMADOL HCL 50 MG ORAL TABLET 143175 TRAMADOL HCL I nactive ZITHROMAX Z-ISAIAS 250 MG ORAL TABLET Take two tablets to day and then 1 tablet daily for 4 days ZITHROMAX Z-ISAIAS 250 MG ORAL TAB LET 114629 AZITHROMYCIN Inactive Immunizations Vaccine Administration Date Value Standard Floyd cription influenza immunization (Flu Vax) has been administered 05/11 Done according to patient influenza virus vaccine, unspecified for mulation pneumococcal immunization administered Pneumovax 23 [CVX33] pneumococcal polysaccharide vaccine, 23 valent Seasonal influenza vaccine, injectable, containing preservative, for > 3 years old (Afluria, FluLaval, Fluzone, Fluvirin, Fluarix, Agriflu(>= 18 yo)) Fluzone (>3 yrs.) [GYW559] Influenza, seasonal, inject able Seasonal influenza vaccine, injectable, containing preservative, for > 3 years old (Afluria, FluLaval, Fluzone, Fluvirin, Fluarix, Agriflu(>= 18 yo)) Fluzone (>3 yrs.) [[id number]] Influenza, seasonal, inject able Vital Signs Date [...] - Chem istry sodium, serum 136 mmol/L 349-698 5824/06/04 potassium, serum 4.9 mmol/L 3.5-5.2 chloride, serum 97 mmol/L 98-107 carbon dioxide, venous blood 35.3 mmol/L 21.0-32 .0 blood glucose 239 mg/dL 65-95 calcium, serum 10.6 mg/dL 8.5-10.1 urea nitrogen, blood 31 mg/dL 7-18 creatinine, serum 2.33 mg/dL 0.60-1.30 Estimated Glomerular Filtration Rate (calc) 23 (?) mL/min/1.73m2 = OR > 60 mL/min sodium, serum 141 mmol/L 784-615 8703/07/09 potassium, serum 4.9 mmol/L 3.5-5.2 chloride, serum [...] 0.40 mg/dL 0.00-1.00 cholesterol, serum 218 mg/dL 064-042 2920/12/18 triglyceride, serum, fasting 357 mg/dL 30-200 HDL cholesterol, serum 49 mg/dL 32-60 LDL cholesterol, serum 103.00 mg/dL 5.00-130.00 hemoglobin A1C, blood, as % of total hemoglobin 8.5 % 4.3-6.0 sodium, serum 142 mmol/L 956-452 6249/12/18 carbon dioxide, venous blood 32.5 mmol/L 21.0-32 [...] 0.36-3.74 Encounters Code Encounter Date Provider Facility CPT-33595 [id number] Vst-Est Level IV 15:03:32 CDT Charlie Childers MD [facility]-03266 [id number] Vst-Est Level III 15:51:57 CDT Baltazar Childers MD [facility]-92292 52714-Mlk Vst-Est Level IV 15:14:58 CDT Charlie Childers MD [facility]-64560 [id number] Vst-Est Level IV 15:12:52 CHECK WRITER Charlie Childers MD [facility]-31764 12984-Mfr Vst-Est Level IV 15:30:55 CHECK WRITER Charlie Childers MD [facility] CPT-79542 [id number]-Cya Vst-Est Level IV 13:49:06 C ELIOT Martinez PA-C [facility] CPT-16810 Level 4 Est. Patient 17:26:08 CDT Ann trujillo PA-C [facility]-93794 85149-Lrq Vst-Est Level V 14:26:27 CDT Aneudy Childers MD [facility] CPT-22509 Level 4 Est. Patient 17:05:37 CDT Baltazar Childers MD [facility] CPT-83331 Level 4 Est. Patient 16:21:19 CHECK WRITER Baltazar Childers MD [facility] CPT-78448 Level 4 Est. Patient 12:25:11 CDT Baltazar Childers MD [facility]-08444 Level 4 Est. Patient 14:22:31 CDT Baltazar Childers MD [facility]-98462 Level 4 Est. Patient 15:44:38 CDT Shonna Elena CASTELLANOS [facility]-42959 Level 4 Est. Patient 11:34:17 CDT Baltazar Childers MD [facility]-93196 Level 3 Est. Patient 16:40:40 CDT Baltazar Childers MD [facility]-70190 Level 4 Est. Patient 10:41:24 CDT Baltazar Childers MD [facility]-79186 Level 4 Est. Patient 16:01:48 CDT Baltazar Childers MD [facility]-66679 Level 4 Est. Patient 16:54:07 CHECK WRITER Baltazar Childers MD [facility]-92584 Level 4 Est. Patient 15:42:12 CDT Baltazar Childers MD [facility] CPT-84876 Level 4 Est. Patient 11:29:55 CDT Baltazar Childers MD [facility]-45160 Level 4 Est. Patient 14:15:19 CDT Baltazar Childers MD [facility] CPT-55473 Level 4 Est. Patient 12:20:13 CDT Baltazar Childres MD [facility] CPT-28249 Level 4 Est. Patient 14:52:45 CHECK WRITER Baltazar Childers MD [facility] CPT-92986 Level 4 Est. Patient 14:18:34 CHECK WRITER Baltazar Childers MD [facility]-19971 Level 4 Est. Patient 15:18:29 CDT Baltazar Childers MD [facility] CPT-54815 Level 3 Est. Patient 12:45:34 CDT Baltazar Childers MD [facility]-13491 Level 3 Est. Patient 10:10:11 CDT Baltazar Childers MD [facility] CPT-11783 Level 3 Est. Patient 14:07:50 CDT Baltazar Childers MD [facility] CPT-39978 Level 4 Est. Patient 12:26:10 CHECK WRITER Baltazar Childers MD [facility] CPT-01247 Level 4 Est. Patient 14:45:38 CDT Baltazar Childers MD [facility] CPT-63576 Level 4 New Patient 12:30:48 CDT Baltazar hinton MD [facility] Procedures Code Procedure Name Date Entry Date Standard Desc ription CPT-86309 Venipuncture Draw Fee 15:19:00 CDT CPT-000 Give Appropriate Flu Vaccine 12:25:14 CDT 2 CPT-61999 First Vx - Ix admin via ID I M or jet injects without counseling by physician 13:08:59 CDT CPT-56915 Fluzone Quadrivalent Intramuscular Suspe nsion 0.5 ML 13:08:59 CDT CPT-34111 Venipuncture Draw Fee 12:04:12 CDT CPT-16097 Lipid - LAB USE ONLY 17:39:15 CHECK WRITER 9 CPT-80644 HGBA1C - LAB USE ONLY 17:39:15 CHECK WRITER CPT-09309 CMP - LAB USE ONLY 17:39:14 CHECK WRITER CPT-32045 Venipuncture Draw Fee 17:39:14 CHECK WRITER CPT-95382 First Vx - Ix admin via ID I M or jet injects without counseling by physician 16:55:17 CHECK WRITER CPT-70383 Fluzone Quadrivalent Intramuscular Suspe nsion 0.5 ML 16:55:17 CHECK WRITER CPT-65033 Renal Panel - LAB USE ONLY 17:39:20 CDT 201 10/31/07 CPT-10936 CBC - LAB USE ONLY 17:39:20 CDT CPT-45442 Venipuncture Draw Fee 17:39:20 CDT CPT-38824 Venipuncture Draw Fee 14:33:30 CDT CPT-17931 Renal Panel - LAB USE ONLY 14:33:30 CDT 201 10/31/07 CPT-23989 CBC - LAB USE ONLY 14:33:29 CDT CPT-39263 Venipuncture Draw Fee 14:50:21 CHECK WRITER CPT-81046 Immunization Single Admin 17:35:35 CDT 2014 CPT-92672 Fluzone Quadrivalent preservative free ( >=3yrs.) 17:35:35 CDT CPT-57569 Venipuncture Draw Fee 12:10:27 CHECK WRITER CPT-77309 Fluzone Quadrivalent Intramuscular Suspe nsion 0.5 ML 10:49:13 CDT CPT-23107 First Vx Component - Ix admi n via ID IM or jet inj without physician counseling 15:17:19 CHECK WRITER CPT-79637 Pneumovax 23 15:17:19 CHECK WRITER CPT-55454 Pneumovax 14:52:45 CHECK WRITER CPT-14945 Venipuncture Draw Fee 14:06:30 CHECK WRITER CPT-000 Give Appropriate Flu Vaccine 14:18:34 CHECK WRITER 2 CPT-15943 Administration single or combination vac cine inc oral 14:46:00 CHECK WRITER CPT-44378 Influenza split virus > age 3 14:46:00 CHECK WRITER CPT-OV Office Visit 19:13:16 CDT CPT-90338 Zostavax 18:41:56 CDT CPT-90964 Administration single or combination vac cine inc oral 12:56:39 CDT CPT-65950 Zoster Vaccine (Zostavax) 12:56:39 CDT 2012 CPT-52632 Venipuncture Draw Fee 10:58:57 CDT CPT-20004 Sono pelvis non OB uterus ovaries cervix 17:45:04 CDT CPT-26982 Sono retroperitoneal complete kidneys an d bladder 17:14:36 CDT CPT-OV Office Visit 14:59:38 CHECK WRITER CPT-J1070 Depo Testosterone 100 mg 14:50:13 CDT 03/05 CPT-46246 Abx/Therapy Injection 14:50:13 CDT CPT-51531 Administration single or combination vac cine inc oral 14:34:43 CDT CPT-84607 Influenza split virus > age 3 14:34:43 CDT CPT-J1070 Depo Testosterone 100 mg 17:37:13 CDT 01/11 CPT-14452 Abx/Therapy Injection 17:37:13 CDT CPT-22339 Venipuncture Draw Fee 16:30:13 CDT CPT-36056 Venipuncture Draw Fee 16:29:43 CDT CPT-J1070 Depo Testosterone 100 mg 14:45:38 CDT 01/11
--- OUTSIDE RECORDS SUMMARY | 2019-10-27 11:39 | XMS REPORT | Clinical Summary ---
Author Author Admin, Elba Lance [employer] Address Unknown Phone Unavailable Allergies, Adverse Reactions, [...] Standard Description Annotate ASTHMA 493.90 Active Baltazar Childres MD Asthma, unspecified DEGENERATIVE DISC DISEASE, LUMBAR [...] ronary atherosclerosis of unspecified type of vessel, jena or graft OTH NONSPC ABN FINDNG RAD&OTH [...] and 13 units at night INSULIN GLARGINE 68032296549 Active Baltazar Childers MD Active ONGLYZA 2.5 MG ORAL TABLET 1 daily for diabetes SAXAGLIPTIN HCL 28738555958 Active Baltazar Childers MD Active TRAMADOL HCL 50 MG ORAL TABLET 1 twice a day as needed for pain TRAMADOL HCL 85489399096 No Longer Active Baltazar Childers MD Active ROBAXIN 500 MG ORAL TABLET Take 1.5 (one and one half) tabs once daily METHOCARBAMOL 39337158980 Active Baltazar Childers MD Active SYNTHROID 112 MCG ORAL TABLET Take one tablet a day LEVOTHYROXINE SODIUM 33783972102 Active Baltazar Childers MD Active TRUE METRIX AIR GLUCOSE METER DEVICE Use as directed BLOOD GLUCOSE MONITORING SUPPL 19819439370 Active Baltazar Childers MD Activ e TRUE METRIX BLOOD GLUCOSE TEST IN VITRO STRIP test blood sug ar BID Dx: E11.65 GLUCOSE BLOOD 54877326249 Active KENDALL Juarez Active NORTRIPTYLINE HCL 50 MG ORAL CAPSULE 1 twice a day for neuropathy 2 NORTRIPTYLINE HCL 47313712231 Active Baltazar Childers MD Acti ve ASPIRIN 81 MG TBEC Take one (1) tablet by mouth daily ASPIRIN 05089494171 Active Baltazar Childers MD Active GABAPENTIN 300 MG ORAL CAPSULE 1 three times a day 201 12/03/26 GABAPENTIN 55321297907 No Longer Active Baltazar Childers MD Activ e LISINOPRIL 20 MG ORAL TABLET 1 tablet by mouth daily at night 2016 LISINOPRIL 02697600137 Active Baltazar Childers MD Active ZITHROMAX Z-ISAIAS 250 MG ORAL TABLET Take two tablets to day and then 1 tablet daily for 4 days AZITHROMYCIN 60103843110 No Longer A ctive Baltazar Childers MD Active AMLODIPINE BESYLATE 5 MG ORAL TABLET 1 tab daily for HTN AMLODIPINE BESYLATE 10233273913 Active Baltazar Childers MD Active GLIPIZIDE 10 MG ORAL TABLET take 2 tablets twice daily GLIPIZIDE 13265740695 Active Baltazar Childers MD Active SUCRALFATE 1 GM ORAL TABLET 1 four times a day to coat the stoma ch SUCRALFATE 63735113566 No Longer Active Baltazar Childers MD Active PEN NEEDLES 31G X 6 MM use 1 daily INSULIN PEN NE EDLE 24551592304 Active KENDALL Juarez Active TOUJEO SOLOSTAR 300 UNIT/ML SUBCUTANEOUS SOLUTION PEN- INJECTOR 10 units SC daily INSULIN GLARGINE 22664106606 No Longer Active Rola abigail Guerrab RMA Active NAPROXEN SODIUM 220 MG ORAL TABLET 1 three times a day as needed NAPROXEN SODIUM 26420445375 No Longer Active Baltazar Childers MD Active ATORVASTATIN CALCIUM 20 MG ORAL TABLET Take 1 tab daily ATORVASTATIN CALCIUM 83754157719 Active Baltazar Childers MD A ctive FUROSEMIDE 40 MG ORAL TABLET Take one by mouth daily FUROSEMIDE 35850347401 Active Baltazar Childers MD Active LISINOPRIL 20 MG ORAL TABLET Take one by mouth daily at bedtime LISINOPRIL 62503735725 No Longer Active Baltazar Childers MD Active ONETOUCH ULTRA BLUE IN VITRO STRIP Test twice a day 07/11/11 GLUCOSE BLOOD 10815420051 No Longer Active Baltazar Childers MD Acti ve TRUEPLUS LANCETS 33G Test twice a day LANCETS 2453378 7585 Active KENDALL Juarez Active TRUEDRAW LANCING DEVICE Test twice a day LANCET DEVICES 14934550267 Active Baltazar Childers MD Active TRUETRACK BLOOD GLUCOSE w/Device KIT Test twice a day BLOOD GLUCOSE MONITORING SUPPL 99740638552 Active Baltazar Childers MD Activ e HYDROCODONE-ACETAMINOPHEN 7.5-325 MG ORAL TABLET Take 1 tab every 6-8 hours PRN HYDROCODONE-ACETAMINOPHEN 84657325041 Active Baltazar Nickerson MD Active GABAPENTIN 300 MG ORAL CAPSULE 1 po qd x 2 days, then 1 po BID x 2 days, then 1 po TID GABAPENTIN 83712148515 No Longer Active Baltazar Childers MD Active NAPROXEN 500 MG ORAL TABLET 1 tablet by mouth twice daily NAPROXEN 33206010385 No Longer Active Baltazar Childers MD Active PROAIR HFA 108 (90 Base) MCG/ACT INHALATION AEROSOL SO LUTION 2 puffs four times a day as needed ALBUTEROL SULFATE 52401332114 Active Shun Arellano LPN Active DEPO-TESTOSTERONE 200 MG/ML INTRAMUSCULAR SOLUTION as directed TESTOSTERONE CYPIONATE 71123093287 No Longer Active Baltazar Chliders MD Active LIPITOR 20 MG ORAL TABLET Take one by mouth daily in evening ATORVASTATIN CALCIUM 27231650390 No Longer Active Baltazar Childers MD Active CRESTOR 10 MG ORAL TABLET 1 by mouth every day ROSUVASTATIN CALCIUM 15762035874 No Longer Active Baltazar Childers MD Active PHENTERMINE HCL 37.5 MG ORAL TABLET Take one by mouth daily PHENTERMINE HCL 42401401314 No Longer Active Baltazar Childers MD Ac tive TIZANIDINE HCL 4 MG ORAL TABLET 1 daily as needed for muscle spa sm TIZANIDINE HCL 13577577173 No Longer Active Dawna Salazar RN Active [id number]-[id number] 50-325-40 MG ORAL TABLET 1 fo ur times a day as needed for heacache [id number] 02339505123 Active KENDALL Juarez Active SUMATRIPTAN SUCCINATE 100 MG ORAL TABLET 1 tablet by m out at onset of migraine as needed SUMATRIPTAN SUCCINATE 75821153680 Active Baltazar Nickerson MD Active LORATADINE 10 MG ORAL TABLET Take one by mouth daily LORATADINE 38543462752 Active Baltazar Childers MD Active OMEPRAZOLE 20 MG ORAL CAPSULE DELAYED RELEASE Take one by mouth jostin ly OMEPRAZOLE 91574338746 Active Baltazar Childers MD Active HYDROXYZINE HCL 25 MG ORAL TABLET Take one by mouth daily HYDROXYZINE HCL 87790066703 Active Baltazar Childers MD Active ALPRAZOLAM 1 MG ORAL TABLET 1 [facility] 62114019296 Active Baltazar Childers MD Active METFORMIN HCL 1000 MG ORAL TABLET Take one by mouth twice daily METFORMIN HCL 46072673330 Active Baltazar Childers MD Active TIZANIDINE HCL 4 MG ORAL TABLET 1 daily as needed for muscle spa sm TIZANIDINE HCL 4 MG ORAL TABLET 380989 TIZANIDINE HCL Inactive PHENTERMINE HCL 37.5 MG ORAL TABLET Take one by mouth daily PHENTERMINE HCL 37.5 MG ORAL TABLET 318709 PHENTERMINE HCL Inac tive CRESTOR 10 MG ORAL TABLET 1 by mouth every day CRESTOR 10 MG ORAL TABLET 260751 ROSUVASTATIN CALCIUM Inactive LIPITOR 20 MG ORAL TABLET Take one by mouth daily in evening LIPITOR 20 MG ORAL TABLET 794941 ATORVASTATIN CALCIUM Inactive DEPO-TESTOSTERONE 200 MG/ML INTRAMUSCULAR SOLUTION as directed DEPO-TESTOSTERONE 200 MG/ML INTRAMUSCULAR SOLUTION 9708293 RUFINO TOSTERONE CYPIONATE Inactive NAPROXEN 500 MG ORAL TABLET 1 tablet by mouth twice daily NAPROXEN 500 MG ORAL TABLET 443879 NAPROXEN Inactive GABAPENTIN 300 MG ORAL CAPSULE 1 po qd x 2 days, then 1 po BID x 2 days, then 1 po TID GABAPENTIN 300 MG ORAL CAPSULE 085984 GABAP ENTIN Inactive ONETOUCH ULTRA BLUE IN VITRO STRIP Test twice a day 07/11/11 ONETOUCH ULTRA BLUE IN VITRO STRIP GLUCOSE BLOOD Inact amie NAPROXEN SODIUM 220 MG ORAL TABLET 1 three times a day as needed NAPROXEN SODIUM 220 MG ORAL TABLET 43251910176 NAPROXEN SODI UM Inactive TOUJEO SOLOSTAR 300 UNIT/ML SUBCUTANEOUS SOLUTION PEN- INJECTOR 10 units SC daily TOUJEO SOLOSTAR 300 UNIT/ML SUBCUTANEOUS SOLUTION PEN-INJECTOR INSULIN GLARGINE Inactive SUCRALFATE 1 GM ORAL TABLET 1 four times a day to coat the stoma ch SUCRALFATE 1 GM ORAL TABLET 097843 SUCRALFATE Inac tive GABAPENTIN 300 MG ORAL CAPSULE 1 three times a day 201 12/03/26 GABAPENTIN 300 MG ORAL CAPSULE 788089 GABAPENTIN Inactive TRAMADOL HCL 50 MG ORAL TABLET 1 twice a day as needed for pain TRAMADOL HCL 50 MG ORAL TABLET 665019 TRAMADOL HCL I nactive ZITHROMAX Z-ISAIAS 250 MG ORAL TABLET Take two tablets to day and then 1 tablet daily for 4 days ZITHROMAX Z-ISAIAS 250 MG ORAL TAB LET 140637 AZITHROMYCIN Inactive Immunizations Vaccine Administration Date Value Standard Floyd cription influenza immunization (Flu Vax) has been administered 05/11 Done according to patient influenza virus vaccine, unspecified for mulation pneumococcal immunization administered Pneumovax 23 [CVX33] pneumococcal polysaccharide vaccine, 23 valent Seasonal influenza vaccine, injectable, containing preservative, for > 3 years old (Afluria, FluLaval, Fluzone, Fluvirin, Fluarix, Agriflu(>= 18 yo)) Fluzone (>3 yrs.) [QQN939] Influenza, seasonal, inject able Seasonal influenza vaccine, injectable, containing preservative, for > 3 years old (Afluria, FluLaval, Fluzone, Fluvirin, Fluarix, Agriflu(>= 18 yo)) Fluzone (>3 yrs.) [[id number]] Influenza, seasonal, inject able Vital Signs Date [...] - Chem istry sodium, serum 136 mmol/L 195-789 4610/06/04 potassium, serum 4.9 mmol/L 3.5-5.2 chloride, serum [...] 0.40 mg/dL 0.00-1.00 cholesterol, serum 218 mg/dL 636-487 5417/12/18 triglyceride, serum, fasting 357 mg/dL 30-200 HDL cholesterol, serum 49 mg/dL 32-60 LDL cholesterol, serum 103.00 mg/dL 5.00-130.00 hemoglobin A1C, blood, as % of total hemoglobin 8.5 % 4.3-6.0 sodium, serum 142 mmol/L 868-489 0849/12/18 carbon dioxide, venous blood 32.5 mmol/L 21.0-32 [...] 0.36-3.74 Encounters Code Encounter Date Provider Facility CPT-65793 [id number] Vst-Est Level IV 15:03:32 CDT Charlie Childers MD [facility] CPT-81415 [id number] Vst-Est Level III 15:51:57 CDT Baltazar Childers MD [facility] CPT-65997 [id number] Vst-Est Level IV 15:14:58 CDT Charlie Childers MD [facility] CPT-92698 [id number] Vst-Est Level IV 15:12:52 DIRECTOR OF LEARNING Charlie Childers MD [facility] CPT-38348 [id number] Vst-Est Level IV 15:30:55 DIRECTOR OF LEARNING Charlie Childers MD [facility] CPT-50268 10925-Poy Vst-Est Level IV 13:49:06 C DT Ann Martinez [facility] CPT-55782 Level 4 Est. Patient 17:26:08 CDT Ann trujillo [facility] CPT-15124 [id number] Vst-Est Level V 14:26:27 CDT Aneudy Childers MD [facility] CPT-60833 Level 4 Est. Patient 17:05:37 CDT Baltazar Childers MD [facility] CPT-65120 Level 4 Est. Patient 16:21:19 DIRECTOR OF LEARNING Baltazar Childers MD [facility] CPT-50498 Level 4 Est. Patient 12:25:11 CDT Baltazar Childers MD [facility] CPT-50455 Level 4 Est. Patient 14:22:31 CDT Baltazar Childers MD [facility] CPT-81578 Level 4 Est. Patient 15:44:38 CDT Shonna Parker APRN [facility] CPT-36915 Level 4 Est. Patient 11:34:17 CDT Baltazar Childers MD [facility] CPT-23832 Level 3 Est. Patient 16:40:40 CDT Baltazar Childers MD [facility] CPT-85126 Level 4 Est. Patient 10:41:24 CDT Baltazar Childers MD [facility] CPT-04091 Level 4 Est. Patient 16:01:48 CDT Baltazar Childers MD [facility] CPT-74977 Level 4 Est. Patient 16:54:07 DIRECTOR OF LEARNING Baltazar Childers MD [facility] CPT-76765 Level 4 Est. Patient 15:42:12 CDT Baltazar Childers MD [facility] CPT-96227 Level 4 Est. Patient 11:29:55 CDT Baltazar Childers MD [facility] CPT-67979 Level 4 Est. Patient 14:15:19 CDT Baltazar Childers MD [facility] CPT-58142 Level 4 Est. Patient 12:20:13 CDT Baltazar Childers MD [facility] CPT-07443 Level 4 Est. Patient 14:52:45 DIRECTOR OF LEARNING Baltazar Childers MD [facility] CPT-72329 Level 4 Est. Patient 14:18:34 DIRECTOR OF LEARNING Baltazar Childers MD [facility] CPT-37262 Level 4 Est. Patient 15:18:29 CDT Baltazar Childers MD [facility] CPT-43738 Level 3 Est. Patient 12:45:34 CDT Baltazar Childers MD [facility] CPT-71279 Level 3 Est. Patient 10:10:11 CDT Baltazar Childers MD [facility] CPT-68438 Level 3 Est. Patient 14:07:50 CDT Baltazar Childers MD [facility] CPT-10873 Level 4 Est. Patient 12:26:10 DIRECTOR OF LEARNING Baltazar Childers MD [facility] CPT-03776 Level 4 Est. Patient 14:45:38 CDT Baltazar Childers MD [facility] CPT-79737 Level 4 New Patient 12:30:48 CDT Baltazar hinton MD [facility] Procedures Code Procedure Name Date Entry Date Standard Desc ription CPT-73032 Venipuncture Draw Fee 15:19:00 CDT CPT-000 Give Appropriate Flu Vaccine 12:25:14 CDT 2 CPT-81829 First Vx - Ix admin via ID I M or jet injects without counseling by physician 13:08:59 CDT CPT-25798 Fluzone Quadrivalent Intramuscular Suspe nsion 0.5 ML 13:08:59 CDT CPT-21942 Venipuncture Draw Fee 12:04:12 CDT CPT-60324 Lipid - LAB USE ONLY 17:39:15 DIRECTOR OF LEARNING 9 CPT-96109 HGBA1C - LAB USE ONLY 17:39:15 DIRECTOR OF LEARNING CPT-78526 CMP - LAB USE ONLY 17:39:14 DIRECTOR OF LEARNING CPT-27399 Venipuncture Draw Fee 17:39:14 DIRECTOR OF LEARNING CPT-59774 First Vx - Ix admin via ID I M or jet injects without counseling by physician 16:55:17 DIRECTOR OF LEARNING CPT-68920 Fluzone Quadrivalent Intramuscular Suspe nsion 0.5 ML 16:55:17 DIRECTOR OF LEARNING CPT-10486 Renal Panel - LAB USE ONLY 17:39:20 CDT 201 10/31/07 CPT-70623 CBC - LAB USE ONLY 17:39:20 CDT CPT-05022 Venipuncture Draw Fee 17:39:20 CDT CPT-59375 Venipuncture Draw Fee 14:33:30 CDT CPT-59356 Renal Panel - LAB USE ONLY 14:33:30 CDT 201 10/31/07 CPT-88114 CBC - LAB USE ONLY 14:33:29 CDT CPT-15224 Venipuncture Draw Fee 14:50:21 DIRECTOR OF LEARNING CPT-43559 Immunization Single Admin 17:35:35 CDT 2014 CPT-74573 Fluzone Quadrivalent preservative free ( >=3yrs.) 17:35:35 CDT CPT-63895 Venipuncture Draw Fee 12:10:27 DIRECTOR OF LEARNING CPT-55671 Fluzone Quadrivalent Intramuscular Suspe nsion 0.5 ML 10:49:13 CDT CPT-26303 First Vx Component - Ix admi n via ID IM or jet inj without physician counseling 15:17:19 DIRECTOR OF LEARNING CPT-90708 Pneumovax 15:17:19 DIRECTOR OF LEARNING CPT-88921 Pneumovax 14:52:45 DIRECTOR OF LEARNING CPT-24335 Venipuncture Draw Fee 14:06:30 DIRECTOR OF LEARNING CPT-000 Give Appropriate Flu Vaccine 14:18:34 DIRECTOR OF LEARNING 2 CPT-10173 Administration single or combination vac cine inc oral 14:46:00 DIRECTOR OF LEARNING CPT-53399 Influenza split virus > age 3 14:46:00 DIRECTOR OF LEARNING CPT-OV Office Visit 19:13:16 CDT CPT-53583 Zostavax 18:41:56 CDT CPT-86241 Administration single or combination vac cine inc oral 12:56:39 CDT CPT-86782 Zoster Vaccine (Zostavax) 12:56:39 CDT 2012 CPT-48382 Venipuncture Draw Fee 10:58:57 CDT CPT-77228 Sono pelvis non OB uterus ovaries cervix 17:45:04 CDT CPT-99849 Sono retroperitoneal complete kidneys an d bladder 17:14:36 CDT CPT-OV Office Visit 14:59:38 DIRECTOR OF LEARNING CPT-J1070 Depo Testosterone 100 mg 14:50:13 CDT 03/05 CPT-25017 Abx/Therapy Injection 14:50:13 CDT CPT-97814 Administration single or combination vac cine inc oral 14:34:43 CDT CPT-73864 Influenza split virus > age 3 14:34:43 CDT CPT-J1070 Depo Testosterone 100 mg 17:37:13 CDT 01/11 CPT-26694 Abx/Therapy Injection 17:37:13 CDT CPT-46322 Venipuncture Draw Fee 16:30:13 CDT CPT-80064 Venipuncture Draw Fee 16:29:43 CDT CPT-J1070 Depo Testosterone 100 mg 14:45:38 CDT 01/11
--- OUTSIDE RECORDS SUMMARY | 2019-10-27 11:39 | XMS REPORT | Clinical Summary ---
Author Author Admin, Elba Lance [facility] Address Unknown Phone Unavailable Allergies, Adverse Reactions, [...] Obesity Class II (BMI 35-39.9) 278.01 Active 10/26 Baltazar Childers MD Morbid obesity ADD 314.00 [...] ronary atherosclerosis of unspecified type of vessel, levelock or graft OTH NONSPC ABN FINDNG RAD&OTH EXM BODY STRUCTURE 793.99 11/08 Active Jessy Ruiz Other nonspecific (a bnormal) findings on radiological and other examinations of body structure NEED PROPH VACC&INOCULAT AGNST OTH SPEC DISEASE V05.8 0/04 Active Elba Faux RMA Need for prophylacti [...] Generic Name NDC Status Provider Patient Instruction ONGLYZA 2.5 MG ORAL TABLET 1 daily for diabetes SAXAGLIPTIN HCL 94342110394 Active Baltazar Childers MD Active LANTUS SOLOSTAR 100 UNIT/ML SUBCUTANEOUS SOLUTION PEN- INJECTOR 33 units SC daily INSULIN GLARGINE 41737059780 Active Baltazar Childers MD Active TRAMADOL HCL 50 MG ORAL TABLET 1 twice a day as needed for pain TRAMADOL HCL 09797708985 No Longer Active Baltazar Childers MD Active ROBAXIN 500 MG ORAL TABLET Take 1.5 (one and one half) tabs once daily METHOCARBAMOL 49600875344 Active Baltazar Childers MD Active SYNTHROID 112 MCG ORAL TABLET Take one tablet a day LEVOTHYROXINE SODIUM 27399500833 Active Baltazar Childers MD Active TRUE METRIX AIR GLUCOSE METER DEVICE Use as directed BLOOD GLUCOSE MONITORING SUPPL 28414194882 Active Baltazar Childers MD Activ e TRUE METRIX BLOOD GLUCOSE TEST IN VITRO STRIP test blood sug ar BID Dx: E11.65 GLUCOSE BLOOD 84899529299 Active KENDALL Juarez Active NORTRIPTYLINE HCL 50 MG ORAL CAPSULE 1 twice a day for neuropathy 2 NORTRIPTYLINE HCL 57014696293 Active Baltazar Childers MD Acti ve ASPIRIN 81 MG TBEC Take one (1) tablet by mouth daily ASPIRIN 15423416734 Active Baltazar Childers MD Active GABAPENTIN 300 MG ORAL CAPSULE 1 three times a day 201 12/03/26 GABAPENTIN 64156389372 No Longer Active Baltazar Childers MD Activ e LISINOPRIL 20 MG ORAL TABLET 1 tablet by mouth daily at night 2016 LISINOPRIL 93791878796 Active Baltazar Childers MD Active ZITHROMAX Z-ISAIAS 250 MG ORAL TABLET Take two tablets to day and then 1 tablet daily for 4 days AZITHROMYCIN 57244671374 No Longer A ctive Baltazar Childers MD Active AMLODIPINE BESYLATE 5 MG ORAL TABLET 1 tab daily for HTN AMLODIPINE BESYLATE 47658949760 Active Baltazar Childers MD Active GLIPIZIDE 10 MG ORAL TABLET take 2 tablets twice daily GLIPIZIDE 24296566212 Active Baltazar Childers MD Active SUCRALFATE 1 GM ORAL TABLET 1 four times a day to coat the stoma ch SUCRALFATE 61309655131 No Longer Active Baltazar Childers MD Active PEN NEEDLES 31G X 6 MM use 1 daily INSULIN PEN NE EDLE 95722497222 Active KENDALL Juarez Active TOUJEO SOLOSTAR 300 UNIT/ML SUBCUTANEOUS SOLUTION PEN- INJECTOR 10 units SC daily INSULIN GLARGINE 87917004114 No Longer Active Rola Godinez RMA Active NAPROXEN SODIUM 220 MG ORAL TABLET 1 three times a day as needed NAPROXEN SODIUM 26180505583 No Longer Active Baltazar Childers MD Active ATORVASTATIN CALCIUM 20 MG ORAL TABLET Take 1 tab daily ATORVASTATIN CALCIUM 82515917914 Active Baltazar Childers MD A ctive FUROSEMIDE 40 MG ORAL TABLET Take one by mouth daily FUROSEMIDE 60118814686 Active Baltazar Childers MD Active LISINOPRIL 20 MG ORAL TABLET Take one by mouth daily at bedtime LISINOPRIL 61547758557 No Longer Active Baltazar Childers MD Active ONETOUCH ULTRA BLUE IN VITRO STRIP Test twice a day 07/11/11 GLUCOSE BLOOD 85427988812 No Longer Active Baltazar Childers MD Acti ve TRUEPLUS LANCETS 33G Test twice a day LANCETS 4342473 4387 Active KENDALL Juarez Active TRUEDRAW LANCING DEVICE Test twice a day LANCET DEVICES 10239315045 Active Baltazar Childers MD Active TRUETRACK BLOOD GLUCOSE w/Device KIT Test twice a day BLOOD GLUCOSE MONITORING SUPPL 11046264334 Active Baltazar Childers MD Activ e HYDROCODONE-ACETAMINOPHEN 7.5-325 MG ORAL TABLET Take 1 tab every 6-8 hours PRN HYDROCODONE-ACETAMINOPHEN 06763317340 Active Baltazar Nickerson MD Active GABAPENTIN 300 MG ORAL CAPSULE 1 po qd x 2 days, then 1 po BID x 2 days, then 1 po TID GABAPENTIN 67950588016 No Longer Active Baltazar Childers MD Active NAPROXEN 500 MG ORAL TABLET 1 tablet by mouth twice daily NAPROXEN 60939433508 No Longer Active Baltazar Childers MD Active PROAIR HFA 108 (90 Base) MCG/ACT INHALATION AEROSOL SO LUTION 2 puffs four times a day as needed ALBUTEROL SULFATE 45285736252 Active Shun Arellano LPN Active DEPO-TESTOSTERONE 200 MG/ML INTRAMUSCULAR SOLUTION as directed TESTOSTERONE CYPIONATE 87797886012 No Longer Active Baltazar Childers MD Active LIPITOR 20 MG ORAL TABLET Take one by mouth daily in evening ATORVASTATIN CALCIUM 94758180849 No Longer Active Baltazar Childers MD Active CRESTOR 10 MG ORAL TABLET 1 by mouth every day ROSUVASTATIN CALCIUM 79820869430 No Longer Active Baltazar Childers MD Active PHENTERMINE HCL 37.5 MG ORAL TABLET Take one by mouth daily PHENTERMINE HCL 40748438718 No Longer Active Baltazar Childers MD Ac tive TIZANIDINE HCL 4 MG ORAL TABLET 1 daily as needed for muscle spa sm TIZANIDINE HCL 39752473588 No Longer Active Dawna Salazar RN Active [id number] 50-325-40 MG ORAL TABLET 1 fo ur times a day as needed for heacache [id number] 51928627282 Active KENDALL Juarez Active SUMATRIPTAN SUCCINATE 100 MG ORAL TABLET 1 tablet by m outh at onset of migraine as needed SUMATRIPTAN SUCCINATE 05539017662 Active Baltazar Nickerson MD Active LORATADINE 10 MG ORAL TABLET Take one by mouth daily LORATADINE 49355566902 Active Baltazar Childers MD Active OMEPRAZOLE 20 MG ORAL CAPSULE DELAYED RELEASE Take one by mouth jostin ly OMEPRAZOLE 70771453870 Active Baltazar Childers MD Active HYDROXYZINE HCL 25 MG ORAL TABLET Take one by mouth daily HYDROXYZINE HCL 30211177392 Active Baltazar Childers MD Active ALPRAZOLAM 1 MG ORAL TABLET 1 tablet by mouth daily at bedti me for restless leg ALPRAZOLAM 66185746442 Active Baltazar Childers MD Active METFORMIN HCL 1000 MG ORAL TABLET Take one by mouth twice daily METFORMIN HCL 48559829657 Active Baltazar Childers MD Active TIZANIDINE HCL 4 MG ORAL TABLET 1 daily as needed for muscle spa sm TIZANIDINE HCL 4 MG ORAL TABLET 244180 TIZANIDINE HCL Inactive PHENTERMINE HCL 37.5 MG ORAL TABLET Take one by mouth daily PHENTERMINE HCL 37.5 MG ORAL TABLET 437849 PHENTERMINE HCL Inac tive CRESTOR 10 MG ORAL TABLET 1 by mouth every day CRESTOR 10 MG ORAL TABLET 495710 ROSUVASTATIN CALCIUM Inactive LIPITOR 20 MG ORAL TABLET Take one by mouth daily in evening LIPITOR 20 MG ORAL TABLET 896270 ATORVASTATIN CALCIUM Inactive DEPO-TESTOSTERONE 200 MG/ML INTRAMUSCULAR SOLUTION as directed DEPO-TESTOSTERONE 200 MG/ML INTRAMUSCULAR SOLUTION 9475541 RUFINO TOSTERONE CYPIONATE Inactive NAPROXEN 500 MG ORAL TABLET 1 tablet by mouth twice daily NAPROXEN 500 MG ORAL TABLET 069809 NAPROXEN Inactive GABAPENTIN 300 MG ORAL CAPSULE 1 po qd x 2 days, then 1 po BID x 2 days, then 1 po TID GABAPENTIN 300 MG ORAL CAPSULE 949834 GABAP ENTIN Inactive ONETOUCH ULTRA BLUE IN VITRO STRIP Test twice a day 07/11/11 ONETOUCH ULTRA BLUE IN VITRO STRIP GLUCOSE BLOOD Inact amie NAPROXEN SODIUM 220 MG ORAL TABLET 1 three times a day as needed NAPROXEN SODIUM 220 MG ORAL TABLET 36170222159 NAPROXEN SODI UM Inactive TOUJEO SOLOSTAR 300 UNIT/ML SUBCUTANEOUS SOLUTION PEN- INJECTOR 10 units SC daily TOUJEO SOLOSTAR 300 UNIT/ML SUBCUTANEOUS SOLUTION PEN-INJECTOR INSULIN GLARGINE Inactive SUCRALFATE 1 GM ORAL TABLET 1 four times a day to coat the stoma ch SUCRALFATE 1 GM ORAL TABLET 356106 SUCRALFATE Inac tive GABAPENTIN 300 MG ORAL CAPSULE 1 three times a day 201 12/03/26 GABAPENTIN 300 MG ORAL CAPSULE 071361 GABAPENTIN Inactive TRAMADOL HCL 50 MG ORAL TABLET 1 twice a day as needed for pain TRAMADOL HCL 50 MG ORAL TABLET 414593 TRAMADOL HCL I nactive ZITHROMAX Z-ISAIAS 250 MG ORAL TABLET Take two tablets to day and then 1 tablet daily for 4 days ZITHROMAX Z-ISAIAS 250 MG ORAL TAB LET 394253 AZITHROMYCIN Inactive Immunizations Vaccine Administration Date Value Standard Floyd cription influenza immunization (Flu Vax) has been administered 05/11 Done according to patient influenza virus vaccine, unspecified for mulation pneumococcal immunization administered Pneumovax 23 [CVX33] pneumococcal polysaccharide vaccine, 23 valent Seasonal influenza vaccine, injectable, containing preservative, for > 3 years old (Afluria, FluLaval, Fluzone, Fluvirin, Fluarix, Agriflu(>= 18 yo)) Fluzone (>3 yrs.) [ZWP319] Influenza, seasonal, inject able Seasonal influenza vaccine, injectable, containing preservative, for > 3 years old (Afluria, FluLaval, Fluzone, Fluvirin, Fluarix, Agriflu(>= 18 yo)) Fluzone (>3 yrs.) [QMU034] Influenza, seasonal, inject able Vital Signs Date Name Value Unit Range Description blood pressure, diastolic, repeated by physician 84 [...] - Chem istry sodium, serum 136 mmol/L 602-696 2168/06/04 potassium, serum 4.9 mmol/L 3.5-5.2 chloride, serum [...] 0.40 mg/dL 0.00-1.00 cholesterol, serum 218 mg/dL 993-347 5594/12/18 triglyceride, serum, fasting 357 mg/dL 30-200 HDL cholesterol, serum 49 mg/dL 32-60 LDL cholesterol, serum 103.00 mg/dL 5.00-130.00 hemoglobin A1C, blood, as % of total hemoglobin 8.5 % 4.3-6.0 sodium, serum 142 mmol/L 357-870 1447/12/18 carbon dioxide, venous blood 32.5 mmol/L 21.0-32 [...] 0.36-3.74 Encounters Code Encounter Date Provider Facility CPT-16656 84321-Ydd Vst-Est Level III 15:51:57 CDT Baltazar Childers MD [facility] CPT-99201 20757-Mux Vst-Est Level IV 15:14:58 CDT Charlie Childers MD [facility] CPT-73347 15352-Ewa Vst-Est Level IV 15:12:52 CHEMICAL APPLICATOR Charlie Childers MD [facility] CPT-98274 42513-Jhw Vst-Est Level IV 15:30:55 CHEMICAL APPLICATOR Charlie Childers MD [facility] CPT-07359 13650-Fgl Vst-Est Level IV 13:49:06 C ELIOT Martinez PA-C [facility] CPT-24772 Level 4 Est. Patient 17:26:08 CDT Ann trujillo PA-C [facility] CPT-11134 03013-Air Vst-Est Level V 14:26:27 CDT Aneudy Childers MD [facility]-91266 Level 4 Est. Patient 17:05:37 CDT Baltazar Childers MD [facility]-35089 Level 4 Est. Patient 16:21:19 CHEMICAL APPLICATOR Baltazar Childers MD [facility]-96028 Level 4 Est. Patient 12:25:11 CDT Baltazar Childers MD [facility]-96744 Level 4 Est. Patient 14:22:31 CDT Baltazar Childers MD [facility]-41494 Level 4 Est. Patient 15:44:38 CDT Shonna Parker [facility]-41077 Level 4 Est. Patient 11:34:17 CDT Baltazar Childers MD [facility]-99617 Level 3 Est. Patient 16:40:40 CDT Baltazar Childers MD [facility]-07775 Level 4 Est. Patient 10:41:24 CDT Baltazar Childers MD [facility]-73395 Level 4 Est. Patient 16:01:48 CDT Baltazar Childers MD [facility]-91179 Level 4 Est. Patient 16:54:07 CHEMICAL APPLICATOR Baltazar Childers MD [facility]-00223 Level 4 Est. Patient 15:42:12 CDT Baltazar Childers MD [facility] [place]-97963 Level 4 Est. Patient 11:29:55 CDT Baltazar Childers MD [facility] [place]-51927 Level 4 Est. Patient 14:15:19 CDT Baltazar Childers MD [facility] [place]-64268 Level 4 Est. Patient 12:20:13 CDT Baltazar Childers MD [facility] [place]-47339 Level 4 Est. Patient 14:52:45 CHEMICAL APPLICATOR Baltazar Childers MD [facility] CPT-58604 Level 4 Est. Patient 14:18:34 CHEMICAL APPLICATOR Baltazar Childers MD [facility] CPT-70294 Level 4 Est. Patient 15:18:29 CDT Baltazar Childers MD [facility] CPT-98109 Level 3 Est. Patient 12:45:34 CDT Baltazar Childers MD [facility] CPT-71726 Level 3 Est. Patient 10:10:11 CDT Baltazar Childers MD [facility] CPT-74472 Level 3 Est. Patient 14:07:50 CDT Baltazar Childers MD [facility] CPT-03623 Level 4 Est. Patient 12:26:10 CHEMICAL APPLICATOR Baltazar Childers MD [facility] CPT-77183 Level 4 Est. Patient 14:45:38 CDT Baltazar Childers MD [facility] CPT-94694 Level 4 New Patient 12:30:48 CDT Baltazar hinton MD [facility] Procedures Code Procedure Name Date Entry Date Standard Desc ription CPT-000 Give Appropriate Flu Vaccine 12:25:14 CDT 2 CPT-56459 First Vx - Ix admin via ID I M or jet injects without counseling by physician 13:08:59 CDT CPT-72562 Fluzone Quadrivalent Intramuscular Suspe nsion 0.5 ML 13:08:59 CDT CPT-76780 Venipuncture Draw Fee 12:04:12 CDT CPT-61101 Lipid - LAB USE ONLY 17:39:15 CHEMICAL APPLICATOR 9 CPT-57686 HGBA1C - LAB USE ONLY 17:39:15 CHEMICAL APPLICATOR CPT-20957 CMP - LAB USE ONLY 17:39:14 CHEMICAL APPLICATOR CPT-27228 Venipuncture Draw Fee 17:39:14 CHEMICAL APPLICATOR CPT-74005 First Vx - Ix admin via ID I M or jet injects without counseling by physician 16:55:17 CHEMICAL APPLICATOR CPT-28994 Fluzone Quadrivalent Intramuscular Suspe nsion 0.5 ML 16:55:17 CHEMICAL APPLICATOR CPT-40878 Renal Panel - LAB USE ONLY 17:39:20 CDT 201 10/31/07 CPT-17761 CBC - LAB USE ONLY 17:39:20 CDT CPT-96999 Venipuncture Draw Fee 17:39:20 CDT CPT-01627 Venipuncture Draw Fee 14:33:30 CDT CPT-63316 Renal Panel - LAB USE ONLY 14:33:30 CDT 201 10/31/07 CPT-42639 CBC - LAB USE ONLY 14:33:29 CDT CPT-89177 Venipuncture Draw Fee 14:50:21 CHEMICAL APPLICATOR CPT-54699 Immunization Single Admin 17:35:35 CDT 2014 CPT-41955 Fluzone Quadrivalent preservative free ( >=3yrs.) 17:35:35 CDT CPT-43140 Venipuncture Draw Fee 12:10:27 CHEMICAL APPLICATOR CPT-01715 Fluzone Quadrivalent Intramuscular Suspe nsion 0.5 ML 10:49:13 CDT CPT-69528 First Vx Component - Ix admi n via ID IM or jet inj without physician counseling 15:17:19 CHEMICAL APPLICATOR CPT-09862 Pneumovax 23 15:17:19 CHEMICAL APPLICATOR CPT-82477 Pneumovax 14:52:45 CHEMICAL APPLICATOR CPT-68046 Venipuncture Draw Fee 14:06:30 CHEMICAL APPLICATOR CPT-000 Give Appropriate Flu Vaccine 14:18:34 CHEMICAL APPLICATOR 2 CPT-80735 Administration single or combination vac cine inc oral 14:46:00 CHEMICAL APPLICATOR CPT-09948 Influenza split virus > age 3 14:46:00 CHEMICAL APPLICATOR CPT-OV Office Visit 19:13:16 CDT CPT-07938 Zostavax 18:41:56 CDT CPT-49599 Administration single or combination vac cine inc oral 12:56:39 CDT CPT-00198 Zoster Vaccine (Zostavax) 12:56:39 CDT 2012 CPT-61278 Venipuncture Draw Fee 10:58:57 CDT CPT-88281 Sono pelvis non OB uterus ovaries cervix 17:45:04 CDT CPT-87987 Sono retroperitoneal complete kidneys an d bladder 17:14:36 CDT CPT-OV Office Visit 14:59:38 CHEMICAL APPLICATOR CPT-J1070 Depo Testosterone 100 mg 14:50:13 CDT 03/05 CPT-65468 Abx/Therapy Injection 14:50:13 CDT CPT-27861 Administration single or combination vac cine inc oral 14:34:43 CDT CPT-63270 Influenza split virus > age 3 14:34:43 CDT CPT-J1070 Depo Testosterone 100 mg 17:37:13 CDT 01/11 CPT-31059 Abx/Therapy Injection 17:37:13 CDT CPT-25547 Venipuncture Draw Fee 16:30:13 CDT CPT-62986 Venipuncture Draw Fee 16:29:43 CDT CPT-J1070 Depo Testosterone 100 mg 14:45:38 CDT 01/11
--- OUTSIDE RECORDS SUMMARY | 2019-10-27 11:39 | XMS REPORT | Clinical Summary ---
[...] ronary atherosclerosis of unspecified type of vessel, modoc or graft OTH NONSPC ABN FINDNG RAD&OTH [...] and 13 units at night INSULIN GLARGINE 53571088499 Active Baltazar Childers MD Active ONGLYZA 2.5 MG ORAL TABLET 1 daily for diabetes SAXAGLIPTIN HCL 67471369901 Active Baltazar Childers MD Active TRAMADOL HCL 50 MG ORAL TABLET 1 twice a day as needed for pain TRAMADOL HCL 47890326297 No Longer Active Baltazar Childers MD Active ROBAXIN 500 MG ORAL TABLET Take 1.5 (one and one half) tabs once daily METHOCARBAMOL 68669161658 Active Baltazar Childers MD Active SYNTHROID 112 MCG ORAL TABLET Take one tablet a day LEVOTHYROXINE SODIUM 06759463302 Active Baltazar Childers MD Active TRUE METRIX AIR GLUCOSE METER DEVICE Use as directed BLOOD GLUCOSE MONITORING SUPPL 22095631441 Active Baltazar Childers MD Activ e TRUE METRIX BLOOD GLUCOSE TEST IN VITRO STRIP test blood sug ar BID Dx: E11.65 GLUCOSE BLOOD 75861084626 Active KENDALL Juarez Active NORTRIPTYLINE HCL 50 MG ORAL CAPSULE 1 twice a day for neuropathy 2 NORTRIPTYLINE HCL 12189350271 Active Baltazar Childers MD Acti ve ASPIRIN 81 MG TBEC Take one (1) tablet by mouth daily ASPIRIN 57424680494 Active Baltazar Childers MD Active GABAPENTIN 300 MG ORAL CAPSULE 1 three times a day 201 12/03/26 GABAPENTIN 22717160297 No Longer Active Baltazar Childers MD Activ e LISINOPRIL 20 MG ORAL TABLET 1 tablet by mouth daily at night 2016 LISINOPRIL 37294604999 Active Baltazar Childers MD Active ZITHROMAX Z-ISAIAS 250 MG ORAL TABLET Take two tablets to day and then 1 tablet daily for 4 days AZITHROMYCIN 14502361058 No Longer A ctive Baltazar Childers MD Active AMLODIPINE BESYLATE 5 MG ORAL TABLET 1 tab daily for HTN AMLODIPINE BESYLATE 07232422226 Active Baltazar Childers MD Active GLIPIZIDE 10 MG ORAL TABLET take 2 tablets twice daily GLIPIZIDE 00401950199 Active Baltazar Childers MD Active SUCRALFATE 1 GM ORAL TABLET 1 four times a day to coat the stoma ch SUCRALFATE 73810950098 No Longer Active Baltazar Childers MD Active PEN NEEDLES 31G X 6 MM use 1 daily INSULIN PEN NE EDLE 93849983169 Active KENDALL Juarez Active TOUJEO SOLOSTAR 300 UNIT/ML SUBCUTANEOUS SOLUTION PEN- INJECTOR 10 units SC daily INSULIN GLARGINE 32141000911 No Longer Active Rola abigail Guerrab RMA Active NAPROXEN SODIUM 220 MG ORAL TABLET 1 three times a day as needed NAPROXEN SODIUM 13949958471 No Longer Active Baltazar Childers MD Active ATORVASTATIN CALCIUM 20 MG ORAL TABLET Take 1 tab daily ATORVASTATIN CALCIUM 07805516047 Active Baltazar Childers MD A ctive FUROSEMIDE 40 MG ORAL TABLET Take one by mouth daily FUROSEMIDE 87803086521 Active Baltazar Childers MD Active LISINOPRIL 20 MG ORAL TABLET Take one by mouth daily at bedtime LISINOPRIL 44283723683 No Longer Active Baltazar Childers MD Active ONETOUCH ULTRA BLUE IN VITRO STRIP Test twice a day 07/11/11 GLUCOSE BLOOD 87250455900 No Longer Active Baltazar Childers MD Acti ve TRUEPLUS LANCETS 33G Test twice a day LANCETS 5895825 1897 Active KENDALL Juarez Active TRUEDRAW LANCING DEVICE Test twice a day LANCET DEVICES 65964224750 Active Baltazar Childers MD Active TRUETRACK BLOOD GLUCOSE w/Device KIT Test twice a day BLOOD GLUCOSE MONITORING SUPPL 64094253503 Active Baltazar Childers MD Activ e HYDROCODONE-ACETAMINOPHEN 7.5-325 MG ORAL TABLET Take 1 tab every 6-8 hours PRN HYDROCODONE-ACETAMINOPHEN 30139186490 Active Baltazar Nickerson MD Active GABAPENTIN 300 MG ORAL CAPSULE 1 po qd x 2 days, then 1 po BID x 2 days, then 1 po TID GABAPENTIN 85828220503 No Longer Active Baltazar Childers MD Active NAPROXEN 500 MG ORAL TABLET 1 tablet by mouth twice daily NAPROXEN 15435123390 No Longer Active Baltazar Childers MD Active PROAIR HFA 108 (90 Base) MCG/ACT INHALATION AEROSOL SO LUTION 2 puffs four times a day as needed ALBUTEROL SULFATE 68779305385 Active Shun Arellano LPN Active DEPO-TESTOSTERONE 200 MG/ML INTRAMUSCULAR SOLUTION as directed TESTOSTERONE CYPIONATE 75915436129 No Longer Active Baltazar Childers MD Active LIPITOR 20 MG ORAL TABLET Take one by mouth daily in evening ATORVASTATIN CALCIUM 91841289369 No Longer Active Baltazar Childers MD Active CRESTOR 10 MG ORAL TABLET 1 by mouth every day ROSUVASTATIN CALCIUM 15630257085 No Longer Active Baltazar Childers MD Active PHENTERMINE HCL 37.5 MG ORAL TABLET Take one by mouth daily PHENTERMINE HCL 17619054198 No Longer Active Baltazar Childers MD Ac tive TIZANIDINE HCL 4 MG ORAL TABLET 1 daily as needed for muscle spa sm TIZANIDINE HCL 85260093920 No Longer Active Dawna Salazar RN Active [id number]-[id number] 50-325-40 MG ORAL TABLET 1 fo ur times a day as needed for heacache [id number] 05291182600 Active KENDALL Juarez Active SUMATRIPTAN SUCCINATE 100 MG ORAL TABLET 1 tablet by m out at onset of migraine as needed SUMATRIPTAN SUCCINATE 36667904708 Active Baltazar Nickerson MD Active LORATADINE 10 MG ORAL TABLET Take one by mouth daily LORATADINE 89499561539 Active Baltazar Childers MD Active OMEPRAZOLE 20 MG ORAL CAPSULE DELAYED RELEASE Take one by mouth jostin ly OMEPRAZOLE 79476816403 Active Baltazar Childers MD Active HYDROXYZINE HCL 25 MG ORAL TABLET Take one by mouth daily HYDROXYZINE HCL 10798819260 Active Baltazar Childers MD Active ALPRAZOLAM 1 MG ORAL TABLET 1 [facility] 92221295593 Active Baltazar Childers MD Active METFORMIN HCL 1000 MG ORAL TABLET Take one by mouth twice daily METFORMIN HCL 58884471411 Active Baltazar Childers MD Active TIZANIDINE HCL 4 MG ORAL TABLET 1 daily as needed for muscle spa sm TIZANIDINE HCL 4 MG ORAL TABLET 424504 TIZANIDINE HCL Inactive PHENTERMINE HCL 37.5 MG ORAL TABLET Take one by mouth daily PHENTERMINE HCL 37.5 MG ORAL TABLET 446357 PHENTERMINE HCL Inac tive CRESTOR 10 MG ORAL TABLET 1 by mouth every day CRESTOR 10 MG ORAL TABLET 502721 ROSUVASTATIN CALCIUM Inactive LIPITOR 20 MG ORAL TABLET Take one by mouth daily in evening LIPITOR 20 MG ORAL TABLET 146187 ATORVASTATIN CALCIUM Inactive DEPO-TESTOSTERONE 200 MG/ML INTRAMUSCULAR SOLUTION as directed DEPO-TESTOSTERONE 200 MG/ML INTRAMUSCULAR SOLUTION 5667216 RUFINO TOSTERONE CYPIONATE Inactive NAPROXEN 500 MG ORAL TABLET 1 tablet by mouth twice daily NAPROXEN 500 MG ORAL TABLET 854795 NAPROXEN Inactive GABAPENTIN 300 MG ORAL CAPSULE 1 po qd x 2 days, then 1 po BID x 2 days, then 1 po TID GABAPENTIN 300 MG ORAL CAPSULE 460854 GABAP ENTIN Inactive ONETOUCH ULTRA BLUE IN VITRO STRIP Test twice a day 07/11/11 ONETOUCH ULTRA BLUE IN VITRO STRIP GLUCOSE BLOOD Inact amie NAPROXEN SODIUM 220 MG ORAL TABLET 1 three times a day as needed NAPROXEN SODIUM 220 MG ORAL TABLET 23438625570 NAPROXEN SODI UM Inactive TOUJEO SOLOSTAR 300 UNIT/ML SUBCUTANEOUS SOLUTION PEN- INJECTOR 10 units SC daily TOUJEO SOLOSTAR 300 UNIT/ML SUBCUTANEOUS SOLUTION PEN-INJECTOR INSULIN GLARGINE Inactive SUCRALFATE 1 GM ORAL TABLET 1 four times a day to coat the stoma ch SUCRALFATE 1 GM ORAL TABLET 216377 SUCRALFATE Inac tive GABAPENTIN 300 MG ORAL CAPSULE 1 three times a day 201 12/03/26 GABAPENTIN 300 MG ORAL CAPSULE 009626 GABAPENTIN Inactive TRAMADOL HCL 50 MG ORAL TABLET 1 twice a day as needed for pain TRAMADOL HCL 50 MG ORAL TABLET 139609 TRAMADOL HCL I nactive ZITHROMAX Z-ISAIAS 250 MG ORAL TABLET Take two tablets to day and then 1 tablet daily for 4 days ZITHROMAX Z-ISAIAS 250 MG ORAL TAB LET 430176 AZITHROMYCIN Inactive Immunizations Vaccine Administration Date Value Standard Floyd cription influenza immunization (Flu Vax) has been administered 05/11 Done according to patient influenza virus vaccine, unspecified for mulation pneumococcal immunization administered Pneumovax 23 [CVX33] pneumococcal polysaccharide vaccine, 23 valent Seasonal influenza vaccine, injectable, containing preservative, for > 3 years old (Afluria, FluLaval, Fluzone, Fluvirin, Fluarix, Agriflu(>= 18 yo)) Fluzone (>3 yrs.) [[id number]] Influenza, seasonal, inject able Seasonal influenza vaccine, injectable, containing preservative, for > 3 years old (Afluria, FluLaval, Fluzone, Fluvirin, Fluarix, Agriflu(>= 18 yo)) Fluzone (>3 yrs.) [[id number]] Influenza, seasonal, inject able Vital Signs Date [...] - Chem istry sodium, serum 136 mmol/L 765-639 6308/06/04 potassium, serum 4.9 mmol/L 3.5-5.2 chloride, serum [...] 0.40 mg/dL 0.00-1.00 cholesterol, serum 218 mg/dL 494-696 5783/12/18 triglyceride, serum, fasting 357 mg/dL 30-200 HDL cholesterol, serum 49 mg/dL 32-60 LDL cholesterol, serum 103.00 mg/dL 5.00-130.00 hemoglobin A1C, blood, as % of total hemoglobin 8.5 % 4.3-6.0 sodium, serum 142 mmol/L 579-479 5918/12/18 carbon dioxide, venous blood 32.5 mmol/L 21.0-32 [...] 0.36-3.74 Encounters Code Encounter Date Provider Facility CPT-20181 36836-Sev Vst-Est Level IV 15:03:32 CDT Charlie Childers MD [facility] CPT-92656 13407-Tbj Vst-Est Level III 15:51:57 CDT Baltazar Childers MD [facility] CPT-09356 58877-Wex Vst-Est Level IV 15:14:58 CDT Charlie Childers MD [facility] CPT-65237 33172-Omg Vst-Est Level IV 15:12:52 [employer] Charlie Childers MD [facility] CPT-93754 15236-Avd Vst-Est Level IV 15:30:55 [employer] Charlie Childers MD [facility] CPT-32880 00056-Gmo Vst-Est Level IV 13:49:06 C DT Ann Martinez [facility] CPT-34330 Level 4 Est. Patient 17:26:08 CDT Ann trujillo [facility] CPT-79991 75958-Jsy Vst-Est Level V 14:26:27 CDT Aneudy Childers MD [facility] CPT-91053 Level 4 Est. Patient 17:05:37 CDT Baltazar Childers MD [facility] CPT-24812 Level 4 Est. Patient 16:21:19 [employer] Baltazar Childers MD [facility] CPT-17087 Level 4 Est. Patient 12:25:11 CDT Baltazar Childers MD [facility] CPT-78552 Level 4 Est. Patient 14:22:31 CDT Baltazar Childers MD [facility] CPT-00852 Level 4 Est. Patient 15:44:38 CDT Shonna Parker APRN [facility] CPT-28327 Level 4 Est. Patient 11:34:17 CDT Baltazar Childers MD [facility] CPT-09823 Level 3 Est. Patient 16:40:40 CDT Baltazar Childers MD [facility] CPT-94774 Level 4 Est. Patient 10:41:24 CDT Baltazar Childers MD [facility] CPT-06613 Level 4 Est. Patient 16:01:48 CDT Baltazar Childers MD [facility] CPT-88494 Level 4 Est. Patient 16:54:07 [employer] Baltazar Childers MD [facility] CPT-81266 Level 4 Est. Patient 15:42:12 CDT Baltazar Childers MD [facility] CPT-63168 Level 4 Est. Patient 11:29:55 CDT Baltazar Childers MD [facility] CPT-98115 Level 4 Est. Patient 14:15:19 CDT Baltazar Childers MD [facility] CPT-41554 Level 4 Est. Patient 12:20:13 CDT Baltazar Childers MD [facility] CPT-99283 Level 4 Est. Patient 14:52:45 [employer] Baltazar Childers MD [facility] CPT-57936 Level 4 Est. Patient 14:18:34 [employer] Baltazar Childers MD [facility] CPT-58015 Level 4 Est. Patient 15:18:29 CDT Baltazar Childers MD [facility] CPT-44359 Level 3 Est. Patient 12:45:34 CDT Baltazar Childers MD [facility] CPT-28931 Level 3 Est. Patient 10:10:11 CDT Baltazar Childers MD [facility] CPT-74681 Level 3 Est. Patient 14:07:50 CDT Baltazar Childers MD [facility] CPT-77381 Level 4 Est. Patient 12:26:10 [employer] Baltazar Childers MD [facility] CPT-41333 Level 4 Est. Patient 14:45:38 CDT Baltazar Childers MD [facility] CPT-85845 Level 4 New Patient 12:30:48 CDT Baltazar hinton MD [facility] Procedures Code Procedure Name Date Entry Date Standard Desc ription CPT-82316 Venipuncture Draw Fee 15:19:00 CDT CPT-000 Give Appropriate Flu Vaccine 12:25:14 CDT 2 CPT-94659 First Vx - Ix admin via ID I M or jet injects without counseling by physician 13:08:59 CDT CPT-76988 Fluzone Quadrivalent Intramuscular Suspe nsion 0.5 ML 13:08:59 CDT CPT-30779 Venipuncture Draw Fee 12:04:12 CDT CPT-14918 Lipid - LAB USE ONLY 17:39:15 [employer] 9 CPT-87362 HGBA1C - LAB USE ONLY 17:39:15 [employer] CPT-08590 CMP - LAB USE ONLY 17:39:14 [employer] CPT-79775 Venipuncture Draw Fee 17:39:14 [employer] CPT-40908 First Vx - Ix admin via ID I M or jet injects without counseling by physician 16:55:17 [employer] CPT-78643 Fluzone Quadrivalent Intramuscular Suspe nsion 0.5 ML 16:55:17 [employer] CPT-48798 Renal Panel - LAB USE ONLY 17:39:20 CDT 201 10/31/07 CPT-27101 CBC - LAB USE ONLY 17:39:20 CDT CPT-20041 Venipuncture Draw Fee 17:39:20 CDT CPT-60566 Venipuncture Draw Fee 14:33:30 CDT CPT-66998 Renal Panel - LAB USE ONLY 14:33:30 CDT 201 10/31/07 CPT-90848 CBC - LAB USE ONLY 14:33:29 CDT CPT-64539 Venipuncture Draw Fee 14:50:21 [employer] CPT-35322 Immunization Single Admin 17:35:35 CDT 2014 CPT-03547 Fluzone Quadrivalent preservative free ( >=3yrs.) 17:35:35 CDT CPT-10413 Venipuncture Draw Fee 12:10:27 [employer] CPT-84372 Fluzone Quadrivalent Intramuscular Suspe nsion 0.5 ML 10:49:13 CDT CPT-99523 First Vx Component - Ix admi n via ID IM or jet inj without physician counseling 15:17:19 [employer] CPT-59679 Pneumovax 15:17:19 [employer] CPT-90740 Pneumovax 14:52:45 [employer] CPT-04271 Venipuncture Draw Fee 14:06:30 [employer] CPT-000 Give Appropriate Flu Vaccine 14:18:34 [employer] 2 CPT-56979 Administration single or combination vac cine inc oral 14:46:00 [employer] CPT-44239 Influenza split virus > age 3 14:46:00 [employer] CPT-OV Office Visit 19:13:16 CDT CPT-92872 Zostavax 18:41:56 CDT CPT-84817 Administration single or combination vac cine inc oral 12:56:39 CDT CPT-44437 Zoster Vaccine (Zostavax) 12:56:39 CDT 2012 CPT-20466 Venipuncture Draw Fee 10:58:57 CDT CPT-05129 Sono pelvis non OB uterus ovaries cervix 17:45:04 CDT CPT-67687 Sono retroperitoneal complete kidneys an d bladder 17:14:36 CDT CPT-OV Office Visit 14:59:38 [employer] CPT-J1070 Depo Testosterone 100 mg 14:50:13 CDT 03/05 CPT-94137 Abx/Therapy Injection 14:50:13 CDT CPT-04222 Administration single or combination vac cine inc oral 14:34:43 CDT CPT-65715 Influenza split virus > age 3 14:34:43 CDT CPT-J1070 Depo Testosterone 100 mg 17:37:13 CDT 01/11 CPT-87728 Abx/Therapy Injection 17:37:13 CDT CPT-25040 Venipuncture Draw Fee 16:30:13 CDT CPT-13019 Venipuncture Draw Fee 16:29:43 CDT CPT-J1070 Depo Testosterone 100 mg 14:45:38 CDT 01/11
--- OUTSIDE RECORDS SUMMARY | 2019-10-27 11:40 | XMS REPORT | Clinical Summary ---
Author Author Admin, Elba Lance [facility] Address Unknown Phone Unavailable Allergies, Adverse [...] TABLET 1 daily for diabetes SAXAGLIPTIN HCL 71988607952 Active Baltazar Childers MD Active LANTUS SOLOSTAR 100 UNIT/ML SUBCUTANEOUS SOLUTION PEN- INJECTOR 33 units SC daily INSULIN GLARGINE 76920374306 Active Baltazar Childers MD Active TRAMADOL HCL 50 MG ORAL TABLET 1 twice a day as needed for pain TRAMADOL HCL 65824892302 No Longer Active Baltazar Childers MD Active ROBAXIN 500 MG ORAL TABLET Take 1.5 (one and one half) tabs once daily METHOCARBAMOL 91823736128 Active Baltazar Childers MD Active SYNTHROID 112 MCG ORAL TABLET Take one tablet a day LEVOTHYROXINE SODIUM 19507294979 Active Baltazar Childers MD Active TRUE METRIX AIR GLUCOSE METER DEVICE Use as directed BLOOD GLUCOSE MONITORING SUPPL 42422793638 Active Baltazar Childers MD Activ e TRUE METRIX BLOOD GLUCOSE TEST IN VITRO STRIP test blood sug ar BID Dx: E11.65 GLUCOSE BLOOD 88374575278 Active KENDALL Juarez Active NORTRIPTYLINE HCL 50 MG ORAL CAPSULE 1 twice a day for neuropathy 2 NORTRIPTYLINE HCL 81380307470 Active Baltazar Childers MD Acti ve ASPIRIN 81 MG TBEC Take one (1) tablet by mouth daily ASPIRIN 00787724533 Active Baltazar Childers MD Active GABAPENTIN 300 MG ORAL CAPSULE 1 three times a day 201 12/03/26 GABAPENTIN 71559117080 No Longer Active Baltazar Childers MD Activ e LISINOPRIL 20 MG ORAL TABLET 1 tablet by mouth daily at night 2016 LISINOPRIL 42096836710 Active Baltazar Childers MD Active ZITHROMAX Z-ISAIAS 250 MG ORAL TABLET Take two tablets to day and then 1 tablet daily for 4 days AZITHROMYCIN 20917269300 No Longer A ctive Baltazar Childers MD Active AMLODIPINE BESYLATE 5 MG ORAL TABLET 1 tab daily for HTN AMLODIPINE BESYLATE 98135303232 Active Baltazar Childers MD Active GLIPIZIDE 10 MG ORAL TABLET take 2 tablets twice daily GLIPIZIDE 33724198721 Active Baltazar Childers MD Active SUCRALFATE 1 GM ORAL TABLET 1 four times a day to coat the stoma ch SUCRALFATE 49899833239 No Longer Active Baltazar Childers MD Active PEN NEEDLES 31G X 6 MM use 1 daily INSULIN PEN NE EDLE 14737060683 Active KENDALL Juarez Active TOUJEO SOLOSTAR 300 UNIT/ML SUBCUTANEOUS SOLUTION PEN- INJECTOR 10 units SC daily INSULIN GLARGINE 11663366837 No Longer Active Rola Godinez RMA Active NAPROXEN SODIUM 220 MG ORAL TABLET 1 three times a day as needed NAPROXEN SODIUM 34872105085 No Longer Active Baltazar Childers MD Active ATORVASTATIN CALCIUM 20 MG ORAL TABLET Take 1 tab daily ATORVASTATIN CALCIUM 33538746086 Active Baltazar Childers MD A ctive FUROSEMIDE 40 MG ORAL TABLET Take one by mouth daily FUROSEMIDE 80987900520 Active Baltazar Childers MD Active LISINOPRIL 20 MG ORAL TABLET Take one by mouth daily at bedtime LISINOPRIL 12692099246 No Longer Active Baltazar Childers MD Active ONETOUCH ULTRA BLUE IN VITRO STRIP Test twice a day 07/11/11 GLUCOSE BLOOD 96405086052 No Longer Active Baltazar Childers MD Acti ve TRUEPLUS LANCETS 33G Test twice a day LANCETS 1619712 7494 Active KENDALL Juarez Active TRUEDRAW LANCING DEVICE Test twice a day LANCET DEVICES 39015439101 Active Baltazar Childers MD Active TRUETRACK BLOOD GLUCOSE w/Device KIT Test twice a day BLOOD GLUCOSE MONITORING SUPPL 07079592072 Active Baltazar Childers MD Activ e HYDROCODONE-ACETAMINOPHEN 7.5-325 MG ORAL TABLET Take 1 tab every 6-8 hours PRN HYDROCODONE-ACETAMINOPHEN 75121575252 Active Baltazar Nickerson MD Active GABAPENTIN 300 MG ORAL CAPSULE 1 po qd x 2 days, then 1 po BID x 2 days, then 1 po TID GABAPENTIN 79145003474 No Longer Active Baltazar Childers MD Active NAPROXEN 500 MG ORAL TABLET 1 tablet by mouth twice daily NAPROXEN 84142671618 No Longer Active Baltazar Childers MD Active PROAIR HFA 108 (90 Base) MCG/ACT INHALATION AEROSOL SO LUTION 2 puffs four times a day as needed ALBUTEROL SULFATE 38074091108 Active Shun Arellano LPN Active DEPO-TESTOSTERONE 200 MG/ML INTRAMUSCULAR SOLUTION as directed TESTOSTERONE CYPIONATE 82078979708 No Longer Active Baltazar Childers MD Active LIPITOR 20 MG ORAL TABLET Take one by mouth daily in evening ATORVASTATIN CALCIUM 66965703858 No Longer Active Baltazar Childers MD Active CRESTOR 10 MG ORAL TABLET 1 by mouth every day ROSUVASTATIN CALCIUM 37579334380 No Longer Active Baltazar Childers MD Active PHENTERMINE HCL 37.5 MG ORAL TABLET Take one by mouth daily PHENTERMINE HCL 74708652641 No Longer Active Baltazar Childers MD Ac tive TIZANIDINE HCL 4 MG ORAL TABLET 1 daily as needed for muscle spa sm TIZANIDINE HCL 45325851148 No Longer Active Dawna Salazar RN Active [id number] 50-325-40 MG ORAL TABLET 1 fo ur times a day as needed for heacache WOEGIBOLGW-[id number]-[id number] 46011920776 Active KENDALL Juarez Active SUMATRIPTAN SUCCINATE 100 MG ORAL TABLET 1 tablet by m outh at onset of migraine as needed SUMATRIPTAN SUCCINATE 84678605143 Active Baltazar Nickerson MD Active LORATADINE 10 MG ORAL TABLET Take one by mouth daily LORATADINE 32561924145 Active Baltazar Childers MD Active OMEPRAZOLE 20 MG ORAL CAPSULE DELAYED RELEASE Take one by mouth jostin ly OMEPRAZOLE 23940512689 Active Baltazar Childers MD Active HYDROXYZINE HCL 25 MG ORAL TABLET Take one by mouth daily HYDROXYZINE HCL 86878282487 Active Baltazar Childers MD Active ALPRAZOLAM 1 MG ORAL TABLET 1 tablet by mouth daily at bedti me for restless leg ALPRAZOLAM 74956539682 Active Baltazar Childers MD Active METFORMIN HCL 1000 MG ORAL TABLET Take one by mouth twice daily METFORMIN HCL 71926783482 Active Baltazar Childers MD Active TIZANIDINE HCL 4 MG ORAL TABLET 1 daily as needed for muscle spa sm TIZANIDINE HCL 4 MG ORAL TABLET 943555 TIZANIDINE HCL Inactive PHENTERMINE HCL 37.5 MG ORAL TABLET Take one by mouth daily PHENTERMINE HCL 37.5 MG ORAL TABLET 420766 PHENTERMINE HCL Inac tive CRESTOR 10 MG ORAL TABLET 1 by mouth every day CRESTOR 10 MG ORAL TABLET 624401 ROSUVASTATIN CALCIUM Inactive LIPITOR 20 MG ORAL TABLET Take one by mouth daily in evening LIPITOR 20 MG ORAL TABLET 886372 ATORVASTATIN CALCIUM Inactive DEPO-TESTOSTERONE 200 MG/ML INTRAMUSCULAR SOLUTION as directed DEPO-TESTOSTERONE 200 MG/ML INTRAMUSCULAR SOLUTION 5583505 RUFINO TOSTERONE CYPIONATE Inactive NAPROXEN 500 MG ORAL TABLET 1 tablet by mouth twice daily NAPROXEN 500 MG ORAL TABLET 287214 NAPROXEN Inactive GABAPENTIN 300 MG ORAL CAPSULE 1 po qd x 2 days, then 1 po BID x 2 days, then 1 po TID GABAPENTIN 300 MG ORAL CAPSULE 505045 GABAP ENTIN Inactive ONETOUCH ULTRA BLUE IN VITRO STRIP Test twice a day 07/11/11 ONETOUCH ULTRA BLUE IN VITRO STRIP GLUCOSE BLOOD Inact amie NAPROXEN SODIUM 220 MG ORAL TABLET 1 three times a day as needed NAPROXEN SODIUM 220 MG ORAL TABLET 140673 NAPROXEN SODI UM Inactive TOUJEO SOLOSTAR 300 UNIT/ML SUBCUTANEOUS SOLUTION PEN- INJECTOR 10 units SC daily TOUJEO SOLOSTAR 300 UNIT/ML SUBCUTANEOUS SOLUTION PEN-INJECTOR INSULIN GLARGINE Inactive SUCRALFATE 1 GM ORAL TABLET 1 four times a day to coat the stoma ch SUCRALFATE 1 GM ORAL TABLET 900981 SUCRALFATE Inac tive GABAPENTIN 300 MG ORAL CAPSULE 1 three times a day 201 12/03/26 GABAPENTIN 300 MG ORAL CAPSULE 206178 GABAPENTIN Inactive TRAMADOL HCL 50 MG ORAL TABLET 1 twice a day as needed for pain TRAMADOL HCL 50 MG ORAL TABLET 956311 TRAMADOL HCL I nactive ZITHROMAX Z-ISAIAS 250 MG ORAL TABLET Take two tablets to day and then 1 tablet daily for 4 days ZITHROMAX Z-ISAIAS 250 MG ORAL TAB LET 619250 AZITHROMYCIN Inactive Immunizations Vaccine Administration Date Value Standard Floyd cription influenza immunization (Flu Vax) has been administered 05/11 Done according to patient influenza virus vaccine, unspecified for mulation pneumococcal immunization administered Pneumovax 23 [CVX33] pneumococcal polysaccharide vaccine, 23 valent Seasonal influenza vaccine, injectable, containing preservative, for > 3 years old (Afluria, FluLaval, Fluzone, Fluvirin, Fluarix, Agriflu(>= 18 yo)) Fluzone (>3 yrs.) [[id number]] Influenza, seasonal, inject able Seasonal influenza vaccine, injectable, containing preservative, for > 3 years old (Afluria, FluLaval, Fluzone, Fluvirin, Fluarix, Agriflu(>= 18 yo)) Fluzone (>3 yrs.) [[id number]] Influenza, seasonal, inject able Vital Signs Date [...] weight E&M 235 [lb_av] Weight Measure d blood pressure, diastolic, repeated by physician 72 BP [place] blood pressure, diastolic 72 mm[Hg] BP [place] blood pressure, systolic, repeated by physician 117 BP sys blood pressure, systolic 117 mm[Hg] BP sys height E&M 66.5 [in_us] Bdy height pulse rate E&M 91 /min Heart rate temperature E&M 97.9 [degF] Body temp erature weight E&M 233 [lb_av] Weight Measure d Diagnostic Results Date Name Value Unit Range Description Lab Report: Basic Metabolic Panel - Chem istry sodium, serum 139 mmol/L 635-911 9674/06/26 potassium, serum 4.8 mmol/L 3.5-5.2 chloride, serum 102 mmol/L 98-107 carbon dioxide, venous blood 29.1 mmol/L 21.0-32 .0 blood glucose 179 mg/dL 65-95 calcium, serum 9.7 mg/dL 8.5-10.1 urea nitrogen, blood 31 mg/dL 7-18 creatinine, serum 1.97 mg/dL 0.60-1.30 sodium, serum 136 mmol/L 288-478 7524/06/04 potassium, serum 4.9 mmol/L 3.5-5.2 chloride, serum [...] 0.40 mg/dL 0.00-1.00 cholesterol, serum 218 mg/dL 848-678 0797/12/18 triglyceride, serum, fasting 357 mg/dL 30-200 HDL cholesterol, serum 49 mg/dL 32-60 LDL cholesterol, serum 103.00 mg/dL 5.00-130.00 hemoglobin A1C, blood, as % of total hemoglobin 8.5 % 4.3-6.0 sodium, serum 142 mmol/L 720-655 3876/12/18 carbon dioxide, venous blood 32.5 mmol/L 21.0-32 [...] 0.36-3.74 Encounters Code Encounter Date Provider Facility CPT-18228 [id number] Vst-Est Level III 15:51:57 CDT Baltazar Childers MD [facility]-46898 [id number] Vst-Est Level IV 15:14:58 CDT Charlie Childers MD [facility]-88308 [id number] Vst-Est Level IV 15:12:52 [employer] Charlie Childers MD [facility]-37101 [id number] Vst-Est Level IV 15:30:55 [employer] Charlie Childers MD [facility]-92544 [id number] Vst-Est Level IV 13:49:06 C DT Ann Martinez [facility] CPT-12661 Level 4 Est. Patient 17:26:08 CDT Ann trujillo [facility]-69445 [id number] Vst-Est Level V 14:26:27 CDT Aneudy Childers MD [facility] CPT-89257 Level 4 Est. Patient 17:05:37 CDT Baltazar Childers MD [facility] CPT-90139 Level 4 Est. Patient 16:21:19 [employer] Baltazar Childers MD [facility] CPT-47091 Level 4 Est. Patient 12:25:11 CDT Baltazar Childers MD [facility] CPT-91205 Level 4 Est. Patient 14:22:31 CDT Baltazar Childers MD [facility] CPT-89545 Level 4 Est. Patient 15:44:38 CDT Shonna Parker APRN [facility] CPT-32256 Level 4 Est. Patient 11:34:17 CDT Baltazar Childers MD [facility]-12181 Level 3 Est. Patient 16:40:40 CDT Baltazar Childers MD [facility]-98175 Level 4 Est. Patient 10:41:24 CDT Baltazar Childers MD [facility]-06280 Level 4 Est. Patient 16:01:48 CDT Baltazar Childers MD [facility]-11915 Level 4 Est. Patient 16:54:07 [employer] Baltazar Childers MD [facility]-48814 Level 4 Est. Patient 15:42:12 CDT Baltazar Childers MD [facility] CPT-07289 Level 4 Est. Patient 11:29:55 CDT Baltazar Childers MD [facility]-39987 Level 4 Est. Patient 14:15:19 CDT Baltazar Childers MD [facility]-43899 Level 4 Est. Patient 12:20:13 CDT Baltazar Childers MD [facility] CPT-60940 Level 4 Est. Patient 14:52:45 [employer] Baltazar Childers MD [facility]-88831 Level 4 Est. Patient 14:18:34 [employer] Baltazar Childers MD [facility] CPT-24138 Level 4 Est. Patient 15:18:29 CDT Baltazar Childers MD [facility]-05608 Level 3 Est. Patient 12:45:34 CDT Baltazar Childers MD [facility] CPT-00108 Level 3 Est. Patient 10:10:11 CDT Baltazar Childers MD [facility]-98764 Level 3 Est. Patient 14:07:50 CDT Baltazar Childers MD [facility]-81292 Level 4 Est. Patient 12:26:10 [employer] Baltazar Childers MD [facility]-40559 Level 4 Est. Patient 14:45:38 CDT Baltazar Childers MD [facility] CPT-26731 Level 4 New Patient 12:30:48 CDT Baltazar hinton MD [facility] Procedures Code Procedure Name Date Entry Date Standard Desc ription CPT-000 Give Appropriate Flu Vaccine 12:25:14 CDT 2 CPT-88234 First Vx - Ix admin via ID I M or jet injects without counseling by physician 13:08:59 CDT CPT-23909 Fluzone Quadrivalent Intramuscular Suspe nsion 0.5 ML 13:08:59 CDT CPT-22428 Venipuncture Draw Fee 12:04:12 CDT CPT-25960 Lipid - LAB USE ONLY 17:39:15 [employer] 9 CPT-86615 HGBA1C - LAB USE ONLY 17:39:15 [employer] CPT-52485 CMP - LAB USE ONLY 17:39:14 [employer] CPT-79322 Venipuncture Draw Fee 17:39:14 [employer] CPT-75208 First Vx - Ix admin via ID I M or jet injects without counseling by physician 16:55:17 [employer] CPT-32797 Fluzone Quadrivalent Intramuscular Suspe nsion 0.5 ML 16:55:17 [employer] CPT-32448 Renal Panel - LAB USE ONLY 17:39:20 CDT 201 10/31/07 CPT-44451 CBC - LAB USE ONLY 17:39:20 CDT CPT-25775 Venipuncture Draw Fee 17:39:20 CDT CPT-41661 Venipuncture Draw Fee 14:33:30 CDT CPT-86453 Renal Panel - LAB USE ONLY 14:33:30 CDT 201 10/31/07 CPT-43830 CBC - LAB USE ONLY 14:33:29 CDT CPT-26352 Venipuncture Draw Fee 14:50:21 [employer] CPT-26897 Immunization Single Admin 17:35:35 CDT 2014 CPT-79345 Fluzone Quadrivalent preservative free ( >=3yrs.) 17:35:35 CDT CPT-96482 Venipuncture Draw Fee 12:10:27 [employer] CPT-40358 Fluzone Quadrivalent Intramuscular Suspe nsion 0.5 ML 10:49:13 CDT CPT-60723 First Vx Component - Ix admi n via ID IM or jet inj without physician counseling 15:17:19 [employer] CPT-69556 Pneumovax 23 15:17:19 [employer] CPT-60223 Pneumovax 14:52:45 [employer] CPT-10363 Venipuncture Draw Fee 14:06:30 [employer] CPT-000 Give Appropriate Flu Vaccine 14:18:34 [employer] 2 CPT-02528 Administration single or combination vac cine inc oral 14:46:00 [employer] CPT-81475 Influenza split virus > age 3 14:46:00 [employer] CPT-OV Office Visit 19:13:16 CDT CPT-34165 Zostavax 18:41:56 CDT CPT-76463 Administration single or combination vac cine inc oral 12:56:39 CDT CPT-38664 Zoster Vaccine (Zostavax) 12:56:39 CDT 2012 CPT-49047 Venipuncture Draw Fee 10:58:57 CDT CPT-32125 Sono pelvis non OB uterus ovaries cervix 17:45:04 CDT CPT-33745 Sono retroperitoneal complete kidneys an d bladder 17:14:36 CDT CPT-OV Office Visit 14:59:38 [employer] CPT-J1070 Depo Testosterone 100 mg 14:50:13 CDT 03/05 CPT-27889 Abx/Therapy Injection 14:50:13 CDT CPT-66698 Administration single or combination vac cine inc oral 14:34:43 CDT CPT-08970 Influenza split virus > age 3 14:34:43 CDT CPT-J1070 Depo Testosterone 100 mg 17:37:13 CDT 01/11 CPT-96469 Abx/Therapy Injection 17:37:13 CDT CPT-13960 Venipuncture Draw Fee 16:30:13 CDT CPT-70802 Venipuncture Draw Fee 16:29:43 CDT CPT-J1070 Depo Testosterone 100 mg 14:45:38 CDT 01/11
--- OUTSIDE RECORDS SUMMARY | 2019-10-27 11:40 | XMS REPORT | Clinical Summary ---
Author Author Admin, Elba [facility] Address Unknown Phone Unavailable Allergies, Adverse Reactions, [...] ronary atherosclerosis of unspecified type of vessel, nez perce or graft OTH NONSPC ABN FINDNG RAD&OTH [...] TABLET 1 daily for diabetes SAXAGLIPTIN HCL 83297174522 Active Baltazar Childers MD Active LANTUS SOLOSTAR 100 UNIT/ML SUBCUTANEOUS SOLUTION PEN- INJECTOR 33 units SC daily INSULIN GLARGINE 68576892422 Active Baltazar Childers MD Active TRAMADOL HCL 50 MG ORAL TABLET 1 twice a day as needed for pain TRAMADOL HCL 19146957326 No Longer Active Baltazar Childers MD Active ROBAXIN 500 MG ORAL TABLET Take 1.5 (one and one half) tabs once daily METHOCARBAMOL 18264513402 Active Baltazar Childers MD Active SYNTHROID 112 MCG ORAL TABLET Take one tablet a day LEVOTHYROXINE SODIUM 42264864614 Active Baltazar Childers MD Active TRUE METRIX AIR GLUCOSE METER DEVICE Use as directed BLOOD GLUCOSE MONITORING SUPPL 44784038870 Active Baltazar Childers MD Activ e TRUE METRIX BLOOD GLUCOSE TEST IN VITRO STRIP test blood sug ar BID Dx: E11.65 GLUCOSE BLOOD 76963005415 Active KENDALL Juarez Active NORTRIPTYLINE HCL 50 MG ORAL CAPSULE 1 twice a day for neuropathy 2 NORTRIPTYLINE HCL 74194622760 Active Baltazar Childers MD Acti ve ASPIRIN 81 MG TBEC Take one (1) tablet by mouth daily ASPIRIN 07599096748 Active Baltazar Childers MD Active GABAPENTIN 300 MG ORAL CAPSULE 1 three times a day 201 12/03/26 GABAPENTIN 09326374580 No Longer Active Baltazar Childers MD Activ e LISINOPRIL 20 MG ORAL TABLET 1 tablet by mouth daily at night 2016 LISINOPRIL 56078779006 Active Baltazar Childers MD Active ZITHROMAX Z-ISAIAS 250 MG ORAL TABLET Take two tablets to day and then 1 tablet daily for 4 days AZITHROMYCIN 88791460252 No Longer A ctive Baltazar Childers MD Active AMLODIPINE BESYLATE 5 MG ORAL TABLET 1 tab daily for HTN AMLODIPINE BESYLATE 25572392621 Active Baltazar Childers MD Active GLIPIZIDE 10 MG ORAL TABLET take 2 tablets twice daily GLIPIZIDE 17345629577 Active Baltazar Childers MD Active SUCRALFATE 1 GM ORAL TABLET 1 four times a day to coat the stoma ch SUCRALFATE 17662087002 No Longer Active Baltazar Childers MD Active PEN NEEDLES 31G X 6 MM use 1 daily INSULIN PEN NE EDLE 44306540342 Active KENDALL Juarez Active TOUJEO SOLOSTAR 300 UNIT/ML SUBCUTANEOUS SOLUTION PEN- INJECTOR 10 units SC daily INSULIN GLARGINE 23544131176 No Longer Active Rola Godinez RMA Active NAPROXEN SODIUM 220 MG ORAL TABLET 1 three times a day as needed NAPROXEN SODIUM 61314767719 No Longer Active Baltazar Childers MD Active ATORVASTATIN CALCIUM 20 MG ORAL TABLET Take 1 tab daily ATORVASTATIN CALCIUM 30522773913 Active Baltazar Childers MD A ctive FUROSEMIDE 40 MG ORAL TABLET Take one by mouth daily FUROSEMIDE 22057519606 Active Baltazar Childers MD Active LISINOPRIL 20 MG ORAL TABLET Take one by mouth daily at bedtime LISINOPRIL 83357578809 No Longer Active Baltazar Childers MD Active ONETOUCH ULTRA BLUE IN VITRO STRIP Test twice a day 07/11/11 GLUCOSE BLOOD 29255903811 No Longer Active Baltazar Childers MD Acti ve TRUEPLUS LANCETS 33G Test twice a day LANCETS 1297306 7056 Active KENDALL Juarez Active TRUEDRAW LANCING DEVICE Test twice a day LANCET DEVICES 36560310743 Active Baltazar Childers MD Active TRUETRACK BLOOD GLUCOSE w/Device KIT Test twice a day BLOOD GLUCOSE MONITORING SUPPL 30201082129 Active Baltazar Childers MD Activ e HYDROCODONE-ACETAMINOPHEN 7.5-325 MG ORAL TABLET Take 1 tab every 6-8 hours PRN HYDROCODONE-ACETAMINOPHEN 54440894574 Active Baltazar Nickerson MD Active GABAPENTIN 300 MG ORAL CAPSULE 1 po qd x 2 days, then 1 po BID x 2 days, then 1 po TID GABAPENTIN 67757803261 No Longer Active Baltazar Childers MD Active NAPROXEN 500 MG ORAL TABLET 1 tablet by mouth twice daily NAPROXEN 66729743526 No Longer Active Baltazar Childers MD Active PROAIR HFA 108 (90 Base) MCG/ACT INHALATION AEROSOL SO LUTION 2 puffs four times a day as needed ALBUTEROL SULFATE 21464765486 Active Shun Arellano LPN Active DEPO-TESTOSTERONE 200 MG/ML INTRAMUSCULAR SOLUTION as directed TESTOSTERONE CYPIONATE 91267679731 No Longer Active Baltazar Childers MD Active LIPITOR 20 MG ORAL TABLET Take one by mouth daily in evening ATORVASTATIN CALCIUM 85159922625 No Longer Active Baltazar Childers MD Active CRESTOR 10 MG ORAL TABLET 1 by mouth every day ROSUVASTATIN CALCIUM 60382942903 No Longer Active Baltazar Childers MD Active PHENTERMINE HCL 37.5 MG ORAL TABLET Take one by mouth daily PHENTERMINE HCL 63075092370 No Longer Active Baltazar Childers MD Ac tive TIZANIDINE HCL 4 MG ORAL TABLET 1 daily as needed for muscle spa sm TIZANIDINE HCL 26820217007 No Longer Active Dawna Salazar RN Active [id number] 50-325-40 MG ORAL TABLET 1 fo ur times a day as needed for heacache [id number] 60495901463 Active KENDALL Juarez Active SUMATRIPTAN SUCCINATE 100 MG ORAL TABLET 1 tablet by m outh at onset of migraine as needed SUMATRIPTAN SUCCINATE 15087494091 Active Baltazar Nickerson MD Active LORATADINE 10 MG ORAL TABLET Take one by mouth daily LORATADINE 25693353202 Active Baltazar Childers MD Active OMEPRAZOLE 20 MG ORAL CAPSULE DELAYED RELEASE Take one by mouth jostin ly OMEPRAZOLE 06381794554 Active Baltazar Childers MD Active HYDROXYZINE HCL 25 MG ORAL TABLET Take one by mouth daily HYDROXYZINE HCL 90871395408 Active Baltazar Childers MD Active ALPRAZOLAM 1 MG ORAL TABLET 1 tablet by mouth daily at bedti me for restless leg ALPRAZOLAM 56998272527 Active Baltazar Childers MD Active METFORMIN HCL 1000 MG ORAL TABLET Take one by mouth twice daily METFORMIN HCL 24878230939 Active Baltazar Childers MD Active TIZANIDINE HCL 4 MG ORAL TABLET 1 daily as needed for muscle spa sm TIZANIDINE HCL 4 MG ORAL TABLET 300767 TIZANIDINE HCL Inactive PHENTERMINE HCL 37.5 MG ORAL TABLET Take one by mouth daily PHENTERMINE HCL 37.5 MG ORAL TABLET 061884 PHENTERMINE HCL Inac tive CRESTOR 10 MG ORAL TABLET 1 by mouth every day CRESTOR 10 MG ORAL TABLET 721084 ROSUVASTATIN CALCIUM Inactive LIPITOR 20 MG ORAL TABLET Take one by mouth daily in evening LIPITOR 20 MG ORAL TABLET 034786 ATORVASTATIN CALCIUM Inactive DEPO-TESTOSTERONE 200 MG/ML INTRAMUSCULAR SOLUTION as directed DEPO-TESTOSTERONE 200 MG/ML INTRAMUSCULAR SOLUTION 3584721 RUFINO TOSTERONE CYPIONATE Inactive NAPROXEN 500 MG ORAL TABLET 1 tablet by mouth twice daily NAPROXEN 500 MG ORAL TABLET 436898 NAPROXEN Inactive GABAPENTIN 300 MG ORAL CAPSULE 1 po qd x 2 days, then 1 po BID x 2 days, then 1 po TID GABAPENTIN 300 MG ORAL CAPSULE 917872 GABAP ENTIN Inactive ONETOUCH ULTRA BLUE IN VITRO STRIP Test twice a day 07/11/11 ONETOUCH ULTRA BLUE IN VITRO STRIP GLUCOSE BLOOD Inact amie NAPROXEN SODIUM 220 MG ORAL TABLET 1 three times a day as needed NAPROXEN SODIUM 220 MG ORAL TABLET 686816 NAPROXEN SODI UM Inactive TOUJEO SOLOSTAR 300 UNIT/ML SUBCUTANEOUS SOLUTION PEN- INJECTOR 10 units SC daily TOUJEO SOLOSTAR 300 UNIT/ML SUBCUTANEOUS SOLUTION PEN-INJECTOR INSULIN GLARGINE Inactive SUCRALFATE 1 GM ORAL TABLET 1 four times a day to coat the stoma ch SUCRALFATE 1 GM ORAL TABLET 196708 SUCRALFATE Inac tive GABAPENTIN 300 MG ORAL CAPSULE 1 three times a day 201 12/03/26 GABAPENTIN 300 MG ORAL CAPSULE 112217 GABAPENTIN Inactive TRAMADOL HCL 50 MG ORAL TABLET 1 twice a day as needed for pain TRAMADOL HCL 50 MG ORAL TABLET 365592 TRAMADOL HCL I nactive ZITHROMAX Z-ISAIAS 250 MG ORAL TABLET Take two tablets to day and then 1 tablet daily for 4 days ZITHROMAX Z-ISAIAS 250 MG ORAL TAB LET 887214 AZITHROMYCIN Inactive Immunizations Vaccine Administration Date Value Standard Floyd cription influenza immunization (Flu Vax) has been administered 05/11 Done according to patient influenza virus vaccine, unspecified for mulation pneumococcal immunization administered Pneumovax 23 [CVX33] pneumococcal polysaccharide vaccine, 23 valent Seasonal influenza vaccine, injectable, containing preservative, for > 3 years old (Afluria, FluLaval, Fluzone, Fluvirin, Fluarix, Agriflu(>= 18 yo)) Fluzone (>3 yrs.) [[id number]] Influenza, seasonal, inject able Seasonal influenza vaccine, injectable, containing preservative, for > 3 years old (Afluria, FluLaval, Fluzone, Fluvirin, Fluarix, Agriflu(>= 18 yo)) Fluzone (>3 yrs.) [XEE220] Influenza, seasonal, inject able Vital Signs Date [...] - Chem istry sodium, serum 139 mmol/L 073-370 1165/06/26 potassium, serum 4.8 mmol/L 3.5-5.2 chloride, serum 102 mmol/L 98-107 carbon dioxide, venous blood 29.1 mmol/L 21.0-32 .0 blood glucose 179 mg/dL 65-95 calcium, serum 9.7 mg/dL 8.5-10.1 urea nitrogen, blood 31 mg/dL 7-18 creatinine, serum 1.97 mg/dL 0.60-1.30 sodium, serum 136 mmol/L 573-249 3068/06/04 potassium, serum 4.9 mmol/L 3.5-5.2 chloride, serum [...] 0.40 mg/dL 0.00-1.00 cholesterol, serum 218 mg/dL 926-866 9276/12/18 triglyceride, serum, fasting 357 mg/dL 30-200 HDL cholesterol, serum 49 mg/dL 32-60 LDL cholesterol, serum 103.00 mg/dL 5.00-130.00 hemoglobin A1C, blood, as % of total hemoglobin 8.5 % 4.3-6.0 sodium, serum 142 mmol/L 687-452 1495/12/18 carbon dioxide, venous blood 32.5 mmol/L 21.0-32 [...] 0.36-3.74 Encounters Code Encounter Date Provider Facility CPT-67626 [id number]-Epy Vst-Est Level III 15:51:57 CDT Baltazar Childers MD [facility]-16998 [id number] Vst-Est Level IV 15:14:58 CDT Charlie Childers MD [facility]-10825 [id number] Vst-Est Level IV 15:12:52 [employer]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 Charlie Childers MD [facility]-75745 [id number] Vst-Est Level IV 15:30:55 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 Charlie Childers MD [facility]-84275 [id number] Vst-Est Level IV 13:49:06 C DT Ann Martinez [facility] CPT-58698 Level 4 Est. Patient 17:26:08 CDT Ann trujillo [facility]-01857 [id number] Vst-Est Level V 14:26:27 CDT Aneudy Childers MD [facility] CPT-79355 Level 4 Est. Patient 17:05:37 CDT Baltazar Childers MD [facility] CPT-54057 Level 4 Est. 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 CPT-56566 Level 4 Est. Patient 12:25:11 CDT Baltazar Childers MD [facility] CPT-16815 Level 4 Est. Patient 14:22:31 CDT Baltazar Childers MD [facility] CPT-82387 Level 4 Est. Patient 15:44:38 CDT Shonna Parker APRN [facility] CPT-05082 Level 4 Est. Patient 11:34:17 CDT Baltazar Childers MD [facility]-44345 Level 3 Est. Patient 16:40:40 CDT Baltazar Childers MD [facility]-46201 Level 4 Est. Patient 10:41:24 CDT Baltazar Childers MD [facility]-13539 Level 4 Est. Patient 16:01:48 CDT Baltazar Childers MD [facility]-56226 Level 4 Est. 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-60388 Level 4 Est. Patient 15:42:12 CDT Baltazar Childers MD [facility] CPT-43441 Level 4 Est. Patient 11:29:55 CDT Baltazar Childers MD [facility]-60152 Level 4 Est. Patient 14:15:19 CDT Baltazar Childers MD [facility]-61883 Level 4 Est. Patient 12:20:13 CDT Baltazar Childers MD [facility] CPT-09899 Level 4 Est. 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 Patient 14:18:34 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 Baltazar Childers MD [facility] CPT-06364 Level 4 Est. Patient 15:18:29 CDT Baltazar Childers MD [facility]-63190 Level 3 Est. Patient 12:45:34 CDT Baltazar Childers MD [facility] CPT-12480 Level 3 Est. Patient 10:10:11 CDT Baltazar Childers MD [facility]-65496 Level 3 Est. Patient 14:07:50 CDT Baltazar Childers MD [facility]-08142 Level 4 Est. Patient 12:26:10 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 Baltazar Childers MD [facility]-28789 Level 4 Est. Patient 14:45:38 CDT Baltazar Childers MD [facility] CPT-96905 Level 4 New Patient 12:30:48 CDT Baltazar hinton MD [facility] Procedures Code Procedure Name Date Entry Date Standard Desc ription CPT-000 Give Appropriate Flu Vaccine 12:25:14 CDT 2 CPT-90383 First Vx - Ix admin via ID I M or jet injects without counseling by physician 13:08:59 CDT CPT-19347 Fluzone Quadrivalent Intramuscular Suspe nsion 0.5 ML 13:08:59 CDT CPT-68844 Venipuncture Draw Fee 12:04:12 CDT CPT-42873 Lipid - LAB USE ONLY 17:39:15 [employer]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 9 CPT-49040 HGBA1C - LAB USE ONLY 17:39:15 [employer]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 CPT-59318 CMP - LAB USE ONLY 17:39:14 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 CPT-04424 Venipuncture Draw Fee 17:39:14 [employer]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 CPT-51643 First Vx - Ix admin via ID I M or jet injects without counseling by physician 16:55:17 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 CPT-29268 Fluzone Quadrivalent Intramuscular Suspe nsion 0.5 ML 16:55:17 [employer]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 CPT-07064 Renal Panel - LAB USE ONLY 17:39:20 CDT 201 10/31/07 CPT-38700 CBC - LAB USE ONLY 17:39:20 CDT CPT-02866 Venipuncture Draw Fee 17:39:20 CDT CPT-27725 Venipuncture Draw Fee 14:33:30 CDT CPT-29411 Renal Panel - LAB USE ONLY 14:33:30 CDT 201 10/31/07 CPT-04864 CBC - LAB USE ONLY 14:33:29 CDT CPT-02574 Venipuncture Draw Fee 14:50:21 [employer]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 CPT-04947 Immunization Single Admin 17:35:35 CDT 2014 CPT-18912 Fluzone Quadrivalent preservative free ( >=3yrs.) 17:35:35 CDT CPT-63833 Venipuncture Draw Fee 12:10:27 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 CPT-98621 Fluzone Quadrivalent Intramuscular Suspe nsion 0.5 ML 10:49:13 CDT CPT-52544 First Vx Component - Ix admi n via ID IM or jet inj without physician counseling 15:17:19 [employer]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 CPT-23231 Pneumovax 23 15:17:19 [employer]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 CPT-26697 Pneumovax 14:52:45 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 CPT-25074 Venipuncture Draw Fee 14:06:30 [employer]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 CPT-000 Give Appropriate Flu Vaccine 14:18:34 [employer]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 2 CPT-68365 Administration single or combination vac cine inc oral 14:46:00 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 CPT-69759 Influenza split virus > age 3 14:46:00 [employer]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 CPT-OV Office Visit 19:13:16 CDT CPT-53347 Zostavax 18:41:56 CDT CPT-86087 Administration single or combination vac cine inc oral 12:56:39 CDT CPT-52421 Zoster Vaccine (Zostavax) 12:56:39 CDT 2012 CPT-96720 Venipuncture Draw Fee 10:58:57 CDT CPT-65715 Sono pelvis non OB uterus ovaries cervix 17:45:04 CDT CPT-58403 Sono retroperitoneal complete kidneys an d bladder 17:14:36 CDT CPT-OV Office Visit 14:59:38 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 CPT-J1070 Depo Testosterone 100 mg 14:50:13 CDT 03/05 CPT-32153 Abx/Therapy Injection 14:50:13 CDT CPT-30712 Administration single or combination vac cine inc oral 14:34:43 CDT CPT-48044 Influenza split virus > age 3 14:34:43 CDT CPT-J1070 Depo Testosterone 100 mg 17:37:13 CDT 01/11 CPT-29249 Abx/Therapy Injection 17:37:13 CDT CPT-31471 Venipuncture Draw Fee 16:30:13 CDT CPT-03106 Venipuncture Draw Fee 16:29:43 CDT CPT-J1070 Depo Testosterone 100 mg 14:45:38 CDT 01/11
--- OUTSIDE RECORDS SUMMARY | 2019-10-27 11:40 | XMS REPORT | Clinical Summary ---
Author Author Admin, [facility] [employer] Address Unknown Phone Unavailable Allergies, Adverse Reactions, [...] ronary atherosclerosis of unspecified type of vessel, cantwell or graft OTH NONSPC ABN FINDNG RAD&OTH [...] TABLET 1 daily for diabetes SAXAGLIPTIN HCL 39665383113 Active Baltazar Childers MD Active LANTUS SOLOSTAR 100 UNIT/ML SUBCUTANEOUS SOLUTION PEN- INJECTOR 33 units SC daily INSULIN GLARGINE 33473340340 Active Baltazar Childers MD Active TRAMADOL HCL 50 MG ORAL TABLET 1 twice a day as needed for pain TRAMADOL HCL 92851243643 No Longer Active Baltazar Childers MD Active ROBAXIN 500 MG ORAL TABLET Take 1.5 (one and one half) tabs once daily METHOCARBAMOL 80162705234 Active Baltazar Childers MD Active SYNTHROID 112 MCG ORAL TABLET Take one tablet a day LEVOTHYROXINE SODIUM 44425467735 Active Baltazar Childers MD Active TRUE METRIX AIR GLUCOSE METER DEVICE Use as directed BLOOD GLUCOSE MONITORING SUPPL 81333607580 Active Baltazar Childers MD Activ e TRUE METRIX BLOOD GLUCOSE TEST IN VITRO STRIP test blood sug ar BID Dx: E11.65 GLUCOSE BLOOD 00000838681 Active KENDALL Juarez Active NORTRIPTYLINE HCL 50 MG ORAL CAPSULE 1 twice a day for neuropathy 2 NORTRIPTYLINE HCL 47840958646 Active Baltazar Childers MD Acti ve ASPIRIN 81 MG TBEC Take one (1) tablet by mouth daily ASPIRIN 78273383888 Active Baltazar Childers MD Active GABAPENTIN 300 MG ORAL CAPSULE 1 three times a day 201 12/03/26 GABAPENTIN 36841922527 No Longer Active Baltazar Childers MD Activ e LISINOPRIL 20 MG ORAL TABLET 1 tablet by mouth daily at night 2016 LISINOPRIL 38250541663 Active Baltazar Childers MD Active ZITHROMAX Z-ISAIAS 250 MG ORAL TABLET Take two tablets to day and then 1 tablet daily for 4 days AZITHROMYCIN 57097196601 No Longer A ctive Balatzar Childers MD Active AMLODIPINE BESYLATE 5 MG ORAL TABLET 1 tab daily for HTN AMLODIPINE BESYLATE 40978287832 Active Baltazar Childers MD Active GLIPIZIDE 10 MG ORAL TABLET take 2 tablets twice daily GLIPIZIDE 66737492272 Active Baltazar Childers MD Active SUCRALFATE 1 GM ORAL TABLET 1 four times a day to coat the stoma ch SUCRALFATE 25081683281 No Longer Active Baltazar Childers MD Active PEN NEEDLES 31G X 6 MM use 1 daily INSULIN PEN NE EDLE 24578200761 Active KENDALL Juarez Active TOUJEO SOLOSTAR 300 UNIT/ML SUBCUTANEOUS SOLUTION PEN- INJECTOR 10 units SC daily INSULIN GLARGINE 76630874820 No Longer Active Rola Godinez RMA Active NAPROXEN SODIUM 220 MG ORAL TABLET 1 three times a day as needed NAPROXEN SODIUM 10928049312 No Longer Active Baltazar Childers MD Active ATORVASTATIN CALCIUM 20 MG ORAL TABLET Take 1 tab daily ATORVASTATIN CALCIUM 86028822863 Active Baltazar Childers MD A ctive FUROSEMIDE 40 MG ORAL TABLET Take one by mouth daily FUROSEMIDE 08679250932 Active Baltazar Childers MD Active LISINOPRIL 20 MG ORAL TABLET Take one by mouth daily at bedtime LISINOPRIL 83473335590 No Longer Active Baltazar Childers MD Active ONETOUCH ULTRA BLUE IN VITRO STRIP Test twice a day 07/11/11 GLUCOSE BLOOD 06837241537 No Longer Active Baltazar Childers MD Acti ve TRUEPLUS LANCETS 33G Test twice a day LANCETS 5384000 2142 Active KENDALL Juarez Active TRUEDRAW LANCING DEVICE Test twice a day LANCET DEVICES 55030901021 Active Baltazar Childers MD Active TRUETRACK BLOOD GLUCOSE w/Device KIT Test twice a day BLOOD GLUCOSE MONITORING SUPPL 91101250844 Active Baltazar Childers MD Activ e HYDROCODONE-ACETAMINOPHEN 7.5-325 MG ORAL TABLET Take 1 tab every 6-8 hours PRN HYDROCODONE-ACETAMINOPHEN 91168897401 Active Baltazar Nickerson MD Active GABAPENTIN 300 MG ORAL CAPSULE 1 po qd x 2 days, then 1 po BID x 2 days, then 1 po TID GABAPENTIN 59495854827 No Longer Active Baltazar Childers MD Active NAPROXEN 500 MG ORAL TABLET 1 tablet by mouth twice daily NAPROXEN 14556164749 No Longer Active Baltazar Childers MD Active PROAIR HFA 108 (90 Base) MCG/ACT INHALATION AEROSOL SO LUTION 2 puffs four times a day as needed ALBUTEROL SULFATE 20637291919 Active Shun Arellano LPN Active DEPO-TESTOSTERONE 200 MG/ML INTRAMUSCULAR SOLUTION as directed TESTOSTERONE CYPIONATE 76388824700 No Longer Active Baltazar Childers MD Active LIPITOR 20 MG ORAL TABLET Take one by mouth daily in evening ATORVASTATIN CALCIUM 87445411980 No Longer Active Baltazar Childers MD Active CRESTOR 10 MG ORAL TABLET 1 by mouth every day ROSUVASTATIN CALCIUM 39115180774 No Longer Active Baltazar Childers MD Active PHENTERMINE HCL 37.5 MG ORAL TABLET Take one by mouth daily PHENTERMINE HCL 46417485315 No Longer Active Baltazar Childers MD Ac tive TIZANIDINE HCL 4 MG ORAL TABLET 1 daily as needed for muscle spa sm TIZANIDINE HCL 68928665422 No Longer Active Dawna Salazar RN Active [id number] 50-325-40 MG ORAL TABLET 1 fo ur times a day as needed for heacache [id number] 35157059734 Active KENDALL Juarez Active SUMATRIPTAN SUCCINATE 100 MG ORAL TABLET 1 tablet by m outh at onset of migraine as needed SUMATRIPTAN SUCCINATE 46988155098 Active Baltazar Nickerson MD Active LORATADINE 10 MG ORAL TABLET Take one by mouth daily LORATADINE 89925187850 Active Baltazar Childers MD Active OMEPRAZOLE 20 MG ORAL CAPSULE DELAYED RELEASE Take one by mouth jostin ly OMEPRAZOLE 61138176927 Active Baltazar Childers MD Active HYDROXYZINE HCL 25 MG ORAL TABLET Take one by mouth daily HYDROXYZINE HCL 99939110962 Active Baltazar Childers MD Active ALPRAZOLAM 1 MG ORAL TABLET 1 tablet by mouth daily at bedti me for restless leg ALPRAZOLAM 45877926751 Active Baltazar Childers MD Active METFORMIN HCL 1000 MG ORAL TABLET Take one by mouth twice daily METFORMIN HCL 85944095597 Active Baltazar Childers MD Active TIZANIDINE HCL 4 MG ORAL TABLET 1 daily as needed for muscle spa sm TIZANIDINE HCL 4 MG ORAL TABLET 263864 TIZANIDINE HCL Inactive PHENTERMINE HCL 37.5 MG ORAL TABLET Take one by mouth daily PHENTERMINE HCL 37.5 MG ORAL TABLET 850274 PHENTERMINE HCL Inac tive CRESTOR 10 MG ORAL TABLET 1 by mouth every day CRESTOR 10 MG ORAL TABLET 843353 ROSUVASTATIN CALCIUM Inactive LIPITOR 20 MG ORAL TABLET Take one by mouth daily in evening LIPITOR 20 MG ORAL TABLET 722081 ATORVASTATIN CALCIUM Inactive DEPO-TESTOSTERONE 200 MG/ML INTRAMUSCULAR SOLUTION as directed DEPO-TESTOSTERONE 200 MG/ML INTRAMUSCULAR SOLUTION 8357939 RUFINO TOSTERONE CYPIONATE Inactive NAPROXEN 500 MG ORAL TABLET 1 tablet by mouth twice daily NAPROXEN 500 MG ORAL TABLET 770388 NAPROXEN Inactive GABAPENTIN 300 MG ORAL CAPSULE 1 po qd x 2 days, then 1 po BID x 2 days, then 1 po TID GABAPENTIN 300 MG ORAL CAPSULE 217938 GABAP ENTIN Inactive ONETOUCH ULTRA BLUE IN VITRO STRIP Test twice a day 07/11/11 ONETOUCH ULTRA BLUE IN VITRO STRIP GLUCOSE BLOOD Inact amie NAPROXEN SODIUM 220 MG ORAL TABLET 1 three times a day as needed NAPROXEN SODIUM 220 MG ORAL TABLET 342104 NAPROXEN SODI UM Inactive TOUJEO SOLOSTAR 300 UNIT/ML SUBCUTANEOUS SOLUTION PEN- INJECTOR 10 units SC daily TOUJEO SOLOSTAR 300 UNIT/ML SUBCUTANEOUS SOLUTION PEN-INJECTOR INSULIN GLARGINE Inactive SUCRALFATE 1 GM ORAL TABLET 1 four times a day to coat the stoma ch SUCRALFATE 1 GM ORAL TABLET 196147 SUCRALFATE Inac tive GABAPENTIN 300 MG ORAL CAPSULE 1 three times a day 201 12/03/26 GABAPENTIN 300 MG ORAL CAPSULE 980489 GABAPENTIN Inactive TRAMADOL HCL 50 MG ORAL TABLET 1 twice a day as needed for pain TRAMADOL HCL 50 MG ORAL TABLET 902755 TRAMADOL HCL I nactive ZITHROMAX Z-ISAIAS 250 MG ORAL TABLET Take two tablets to day and then 1 tablet daily for 4 days ZITHROMAX Z-ISAIAS 250 MG ORAL TAB LET 173019 AZITHROMYCIN Inactive Immunizations Vaccine Administration Date Value Standard Floyd cription influenza immunization (Flu Vax) has been administered 05/11 Done according to patient influenza virus vaccine, unspecified for mulation pneumococcal immunization administered Pneumovax 23 [CVX33] pneumococcal polysaccharide vaccine, 23 valent Seasonal influenza vaccine, injectable, containing preservative, for > 3 years old (Afluria, FluLaval, Fluzone, Fluvirin, Fluarix, Agriflu(>= 18 yo)) Fluzone (>3 yrs.) [[id number]] Influenza, seasonal, inject able Seasonal influenza vaccine, injectable, containing preservative, for > 3 years old (Afluria, FluLaval, Fluzone, Fluvirin, Fluarix, Agriflu(>= 18 yo)) Fluzone (>3 yrs.) [[id number]] Influenza, seasonal, inject able Vital Signs Date [...] - Chem istry sodium, serum 139 mmol/L 866-457 7033/06/26 potassium, serum 4.8 mmol/L 3.5-5.2 chloride, serum 102 mmol/L 98-107 carbon dioxide, venous blood 29.1 mmol/L 21.0-32 .0 blood glucose 179 mg/dL 65-95 calcium, serum 9.7 mg/dL 8.5-10.1 urea nitrogen, blood 31 mg/dL 7-18 creatinine, serum 1.97 mg/dL 0.60-1.30 sodium, serum 136 mmol/L 173-785 9483/06/04 potassium, serum 4.9 mmol/L 3.5-5.2 chloride, serum [...] 0.40 mg/dL 0.00-1.00 cholesterol, serum 218 mg/dL 433-595 4675/12/18 triglyceride, serum, fasting 357 mg/dL 30-200 HDL cholesterol, serum 49 mg/dL 32-60 LDL cholesterol, serum 103.00 mg/dL 5.00-130.00 hemoglobin A1C, blood, as % of total hemoglobin 8.5 % 4.3-6.0 sodium, serum 142 mmol/L 169-744 0992/12/18 carbon dioxide, venous blood 32.5 mmol/L 21.0-32 [...] 0.36-3.74 Encounters Code Encounter Date Provider Facility CPT-16884 [id number] Vst-Est Level III 15:51:57 CDT Baltazar Childers MD [facility]-18617 [id number] Vst-Est Level IV 15:14:58 CDT Charlie Childers MD [facility]-78129 [id number] Vst-Est Level IV 15:12:52 VIDEO SYSTEMS ENGINEER Charlie Childers MD [facility]-29724 [id number] Vst-Est Level IV 15:30:55 VIDEO SYSTEMS ENGINEER Charlie Childers MD [facility]-42625 [id number] Vst-Est Level IV 13:49:06 C DT Ann Martinez [facility] CPT-27370 Level 4 Est. Patient 17:26:08 CDT Ann trujillo [facility]-39770 [id number] Vst-Est Level V 14:26:27 CDT Aneudy Childers MD [facility] CPT-84942 Level 4 Est. Patient 17:05:37 CDT Baltazar Childers MD [facility] CPT-01567 Level 4 Est. Patient 16:21:19 VIDEO SYSTEMS ENGINEER Baltazar Childers MD [facility] CPT-07845 Level 4 Est. Patient 12:25:11 CDT Baltazar Childers MD [facility] CPT-34364 Level 4 Est. Patient 14:22:31 CDT Baltazar Childers MD [facility] CPT-87643 Level 4 Est. Patient 15:44:38 CDT Shonna Parker APRN [facility] CPT-21165 Level 4 Est. Patient 11:34:17 CDT Baltazar Childers MD [facility]-09950 Level 3 Est. Patient 16:40:40 CDT Baltazar Childers MD [facility]-41893 Level 4 Est. Patient 10:41:24 CDT Baltazar Childers MD [facility]-80447 Level 4 Est. Patient 16:01:48 CDT Baltazar Childers MD [facility]-68277 Level 4 Est. Patient 16:54:07 VIDEO SYSTEMS ENGINEER Baltazar Childers MD [facility]-32067 Level 4 Est. Patient 15:42:12 CDT Baltazar Childers MD [facility] CPT-21283 Level 4 Est. Patient 11:29:55 CDT [id number] Level 4 Est. Patient 14:15:19 CDT Baltazar Childers MD [facility] [id number] Level 4 Est. Patient 12:20:13 CDT Baltazar Childers MD [facility] CPT-65781 Level 4 Est. Patient 14:52:45 VIDEO SYSTEMS ENGINEER Baltazar Childers MD [facility] [id number] Level 4 Est. Patient 14:18:34 VIDEO SYSTEMS ENGINEER Baltazar Childers MD [facility] CPT-15140 Level 4 Est. Patient 15:18:29 CDT Baltazar Childers MD [facility] [id number] Level 3 Est. Patient 12:45:34 CDT Baltazar Childers MD [facility] CPT-94220 Level 3 Est. Patient 10:10:11 CDT Baltazar Childers MD [id number] Level 3 Est. Patient 14:07:50 CDT Baltazar Childers MD [facility] [id number] Level 4 Est. Patient 12:26:10 VIDEO SYSTEMS ENGINEER Baltazar Childers MD [facility] [id number] Level 4 Est. Patient 14:45:38 CDT Baltazar Childers MD [facility] CPT-08695 Level 4 New Patient 12:30:48 CDT Baltazar hinton MD [facility] Procedures Code Procedure Name Date Entry Date Standard Desc ription CPT-000 Give Appropriate Flu Vaccine 12:25:14 CDT 2 CPT-16445 First Vx - Ix admin via ID I M or jet injects without counseling by physician 13:08:59 CDT CPT-67356 Fluzone Quadrivalent Intramuscular Suspe nsion 0.5 ML 13:08:59 CDT CPT-89754 Venipuncture Draw Fee 12:04:12 CDT CPT-54496 Lipid - LAB USE ONLY 17:39:15 VIDEO SYSTEMS ENGINEER 9 CPT-74091 HGBA1C - LAB USE ONLY 17:39:15 VIDEO SYSTEMS ENGINEER CPT-05235 CMP - LAB USE ONLY 17:39:14 VIDEO SYSTEMS ENGINEER CPT-11621 Venipuncture Draw Fee 17:39:14 VIDEO SYSTEMS ENGINEER CPT-05483 First Vx - Ix admin via ID I M or jet injects without counseling by physician 16:55:17 VIDEO SYSTEMS ENGINEER CPT-51003 Fluzone Quadrivalent Intramuscular Suspe nsion 0.5 ML 16:55:17 VIDEO SYSTEMS ENGINEER CPT-89343 Renal Panel - LAB USE ONLY 17:39:20 CDT 201 10/31/07 CPT-75202 CBC - LAB USE ONLY 17:39:20 CDT CPT-06436 Venipuncture Draw Fee 17:39:20 CDT CPT-19146 Venipuncture Draw Fee 14:33:30 CDT CPT-53922 Renal Panel - LAB USE ONLY 14:33:30 CDT 201 10/31/07 CPT-02677 CBC - LAB USE ONLY 14:33:29 CDT CPT-17610 Venipuncture Draw Fee 14:50:21 VIDEO SYSTEMS ENGINEER CPT-31123 Immunization Single Admin 17:35:35 CDT 2014 CPT-13426 Fluzone Quadrivalent preservative free ( >=3yrs.) 17:35:35 CDT CPT-50398 Venipuncture Draw Fee 12:10:27 VIDEO SYSTEMS ENGINEER CPT-25019 Fluzone Quadrivalent Intramuscular Suspe nsion 0.5 ML 10:49:13 CDT CPT-86186 First Vx Component - Ix admi n via ID IM or jet inj without physician counseling 15:17:19 VIDEO SYSTEMS ENGINEER CPT-65707 Pneumovax 23 15:17:19 VIDEO SYSTEMS ENGINEER CPT-87519 Pneumovax 14:52:45 VIDEO SYSTEMS ENGINEER CPT-34131 Venipuncture Draw Fee 14:06:30 VIDEO SYSTEMS ENGINEER CPT-000 Give Appropriate Flu Vaccine 14:18:34 VIDEO SYSTEMS ENGINEER 2 CPT-47665 Administration single or combination vac cine inc oral 14:46:00 VIDEO SYSTEMS ENGINEER CPT-93459 Influenza split virus > age 3 14:46:00 VIDEO SYSTEMS ENGINEER CPT-OV Office Visit 19:13:16 CDT CPT-87895 Zostavax 18:41:56 CDT CPT-86294 Administration single or combination vac cine inc oral 12:56:39 CDT CPT-82859 Zoster Vaccine (Zostavax) 12:56:39 CDT 2012 CPT-31361 Venipuncture Draw Fee 10:58:57 CDT CPT-33383 Sono pelvis non OB uterus ovaries cervix 17:45:04 CDT CPT-77223 Sono retroperitoneal complete kidneys an d bladder 17:14:36 CDT CPT-OV Office Visit 14:59:38 VIDEO SYSTEMS ENGINEER CPT-J1070 Depo Testosterone 100 mg 14:50:13 CDT 03/05 CPT-92315 Abx/Therapy Injection 14:50:13 CDT CPT-60414 Administration single or combination vac cine inc oral 14:34:43 CDT CPT-78826 Influenza split virus > age 3 14:34:43 CDT CPT-J1070 Depo Testosterone 100 mg 17:37:13 CDT 01/11 CPT-58185 Abx/Therapy Injection 17:37:13 CDT CPT-30355 Venipuncture Draw Fee 16:30:13 CDT CPT-70670 Venipuncture Draw Fee 16:29:43 CDT CPT-J1070 Depo Testosterone 100 mg 14:45:38 CDT 01/11
--- OUTSIDE RECORDS SUMMARY | 2019-10-27 11:41 | XMS REPORT | Clinical Summary ---
Author Author Admin, Elba Lance VaxInnate Address Unknown Phone Unavailable Allergies, Adverse Reactions, [...] ronary atherosclerosis of unspecified type of vessel, [place] or graft OTH NONSPC ABN FINDNG RAD&OTH [...] TABLET 1 daily for diabetes SAXAGLIPTIN HCL 14564264500 Active Baltazar Childers MD Active LANTUS SOLOSTAR 100 UNIT/ML SUBCUTANEOUS SOLUTION PEN- INJECTOR 33 units SC daily INSULIN GLARGINE 11163790624 Active Baltazar Childers MD Active TRAMADOL HCL 50 MG ORAL TABLET 1 twice a day as needed for pain TRAMADOL HCL 58623515225 No Longer Active Baltazar Childers MD Active ROBAXIN 500 MG ORAL TABLET Take 1.5 (one and one half) tabs once daily METHOCARBAMOL 58381112158 Active Baltazar Childers MD Active SYNTHROID 112 MCG ORAL TABLET Take one tablet a day LEVOTHYROXINE SODIUM 63493650102 Active Baltazar Childers MD Active TRUE METRIX AIR GLUCOSE METER DEVICE Use as directed BLOOD GLUCOSE MONITORING SUPPL 02752561333 Active Baltazar Childers MD Activ e TRUE METRIX BLOOD GLUCOSE TEST IN VITRO STRIP test blood sug ar BID Dx: E11.65 GLUCOSE BLOOD 09223136194 Active KENDALL Juarez Active NORTRIPTYLINE HCL 50 MG ORAL CAPSULE 1 twice a day for neuropathy 2 NORTRIPTYLINE HCL 87668101552 Active Baltazar Childers MD Acti ve ASPIRIN 81 MG TBEC Take one (1) tablet by mouth daily ASPIRIN 69784343491 Active Baltazar Childers MD Active GABAPENTIN 300 MG ORAL CAPSULE 1 three times a day 201 12/03/26 GABAPENTIN 15390017042 No Longer Active Baltazar Childers MD Activ e LISINOPRIL 20 MG ORAL TABLET 1 tablet by mouth daily at night 2016 LISINOPRIL 69391637109 Active Baltazar Childers MD Active ZITHROMAX Z-ISAIAS 250 MG ORAL TABLET Take two tablets to day and then 1 tablet daily for 4 days AZITHROMYCIN 51377062763 No Longer A ctive Baltazar Childers MD Active AMLODIPINE BESYLATE 5 MG ORAL TABLET 1 tab daily for HTN AMLODIPINE BESYLATE 72315167519 Active Baltazar Childers MD Active GLIPIZIDE 10 MG ORAL TABLET take 2 tablets twice daily GLIPIZIDE 73346443457 Active Baltazar Childers MD Active SUCRALFATE 1 GM ORAL TABLET 1 four times a day to coat the stoma ch SUCRALFATE 63848037574 No Longer Active Baltazar Childers MD Active PEN NEEDLES 31G X 6 MM use 1 daily INSULIN PEN NE EDLE 52288933803 Active KENDALL Juarez Active TOUJEO SOLOSTAR 300 UNIT/ML SUBCUTANEOUS SOLUTION PEN- INJECTOR 10 units SC daily INSULIN GLARGINE 56548240473 No Longer Active Rola Godinez RMA Active NAPROXEN SODIUM 220 MG ORAL TABLET 1 three times a day as needed NAPROXEN SODIUM 72175116879 No Longer Active Baltazar Childers MD Active ATORVASTATIN CALCIUM 20 MG ORAL TABLET Take 1 tab daily ATORVASTATIN CALCIUM 85273888502 Active Baltazar Childers MD A ctive FUROSEMIDE 40 MG ORAL TABLET Take one by mouth daily FUROSEMIDE 32488371099 Active Baltazar Childers MD Active LISINOPRIL 20 MG ORAL TABLET Take one by mouth daily at bedtime LISINOPRIL 01651141583 No Longer Active Baltazar Childers MD Active ONETOUCH ULTRA BLUE IN VITRO STRIP Test twice a day 07/11/11 GLUCOSE BLOOD 89683922285 No Longer Active Baltazar Childers MD Acti ve TRUEPLUS LANCETS 33G Test twice a day LANCETS 8142062 8476 Active KENDALL Juarez Active TRUEDRAW LANCING DEVICE Test twice a day LANCET DEVICES 21451228424 Active Baltazar Childers MD Active TRUETRACK BLOOD GLUCOSE w/Device KIT Test twice a day BLOOD GLUCOSE MONITORING SUPPL 31412001121 Active Baltazar Childers MD Activ e HYDROCODONE-ACETAMINOPHEN 7.5-325 MG ORAL TABLET Take 1 tab every 6-8 hours PRN HYDROCODONE-ACETAMINOPHEN 70229598429 Active Baltazar Nickerson MD Active GABAPENTIN 300 MG ORAL CAPSULE 1 po qd x 2 days, then 1 po BID x 2 days, then 1 po TID GABAPENTIN 27445901699 No Longer Active Baltazar Childers MD Active NAPROXEN 500 MG ORAL TABLET 1 tablet by mouth twice daily NAPROXEN 14641051830 No Longer Active Baltazar Childers MD Active PROAIR HFA 108 (90 Base) MCG/ACT INHALATION AEROSOL SO LUTION 2 puffs four times a day as needed ALBUTEROL SULFATE 37010667266 Active Shun Arellano LPN Active DEPO-TESTOSTERONE 200 MG/ML INTRAMUSCULAR SOLUTION as directed TESTOSTERONE CYPIONATE 95292951184 No Longer Active Baltazar Childers MD Active LIPITOR 20 MG ORAL TABLET Take one by mouth daily in evening ATORVASTATIN CALCIUM 57070264961 No Longer Active Baltazar Childers MD Active CRESTOR 10 MG ORAL TABLET 1 by mouth every day ROSUVASTATIN CALCIUM 08706461820 No Longer Active Baltazar Childers MD Active PHENTERMINE HCL 37.5 MG ORAL TABLET Take one by mouth daily PHENTERMINE HCL 25795111528 No Longer Active Baltzaar Childers MD Ac tive TIZANIDINE HCL 4 MG ORAL TABLET 1 daily as needed for muscle spa sm TIZANIDINE HCL 57319389566 No Longer Active Dawna Salazar RN Active [id number] 50-325-40 MG ORAL TABLET 1 fo ur times a day as needed for heacache [id number] 38498267278 Active KENDALL Juarez Active SUMATRIPTAN SUCCINATE 100 MG ORAL TABLET 1 tablet by m outh at onset of migraine as needed SUMATRIPTAN SUCCINATE 76847671015 Active Baltazar Nickerson MD Active LORATADINE 10 MG ORAL TABLET Take one by mouth daily LORATADINE 24844652656 Active Baltazar Childers MD Active OMEPRAZOLE 20 MG ORAL CAPSULE DELAYED RELEASE Take one by mouth jostin ly OMEPRAZOLE 68008327176 Active Baltazar Childers MD Active HYDROXYZINE HCL 25 MG ORAL TABLET Take one by mouth daily HYDROXYZINE HCL 01894449692 Active Baltazar Childers MD Active ALPRAZOLAM 1 MG ORAL TABLET 1 tablet by mouth daily at bedti me for restless leg ALPRAZOLAM 84992027589 Active Baltazar Childers MD Active METFORMIN HCL 1000 MG ORAL TABLET Take one by mouth twice daily METFORMIN HCL 45929466880 Active Baltazar Childers MD Active TIZANIDINE HCL 4 MG ORAL TABLET 1 daily as needed for muscle spa sm TIZANIDINE HCL 4 MG ORAL TABLET 626619 TIZANIDINE HCL Inactive PHENTERMINE HCL 37.5 MG ORAL TABLET Take one by mouth daily PHENTERMINE HCL 37.5 MG ORAL TABLET 246735 PHENTERMINE HCL Inac tive CRESTOR 10 MG ORAL TABLET 1 by mouth every day CRESTOR 10 MG ORAL TABLET 644947 ROSUVASTATIN CALCIUM Inactive LIPITOR 20 MG ORAL TABLET Take one by mouth daily in evening LIPITOR 20 MG ORAL TABLET 344583 ATORVASTATIN CALCIUM Inactive DEPO-TESTOSTERONE 200 MG/ML INTRAMUSCULAR SOLUTION as directed DEPO-TESTOSTERONE 200 MG/ML INTRAMUSCULAR SOLUTION 7055016 RUFINO TOSTERONE CYPIONATE Inactive NAPROXEN 500 MG ORAL TABLET 1 tablet by mouth twice daily NAPROXEN 500 MG ORAL TABLET 642695 NAPROXEN Inactive GABAPENTIN 300 MG ORAL CAPSULE 1 po qd x 2 days, then 1 po BID x 2 days, then 1 po TID GABAPENTIN 300 MG ORAL CAPSULE 974620 GABAP ENTIN Inactive ONETOUCH ULTRA BLUE IN VITRO STRIP Test twice a day 07/11/11 ONETOUCH ULTRA BLUE IN VITRO STRIP GLUCOSE BLOOD Inact amie NAPROXEN SODIUM 220 MG ORAL TABLET 1 three times a day as needed NAPROXEN SODIUM 220 MG ORAL TABLET 303472 NAPROXEN SODI UM Inactive TOUJEO SOLOSTAR 300 UNIT/ML SUBCUTANEOUS SOLUTION PEN- INJECTOR 10 units SC daily TOUJEO SOLOSTAR 300 UNIT/ML SUBCUTANEOUS SOLUTION PEN-INJECTOR INSULIN GLARGINE Inactive SUCRALFATE 1 GM ORAL TABLET 1 four times a day to coat the stoma ch SUCRALFATE 1 GM ORAL TABLET 147862 SUCRALFATE Inac tive GABAPENTIN 300 MG ORAL CAPSULE 1 three times a day 201 12/03/26 GABAPENTIN 300 MG ORAL CAPSULE 499529 GABAPENTIN Inactive TRAMADOL HCL 50 MG ORAL TABLET 1 twice a day as needed for pain TRAMADOL HCL 50 MG ORAL TABLET 797969 TRAMADOL HCL I nactive ZITHROMAX Z-ISAIAS 250 MG ORAL TABLET Take two tablets to day and then 1 tablet daily for 4 days ZITHROMAX Z-ISAIAS 250 MG ORAL TAB LET 768751 AZITHROMYCIN Inactive Immunizations Vaccine Administration Date Value Standard Floyd cription influenza immunization (Flu Vax) has been administered 05/11 Done according to patient influenza virus vaccine, unspecified for mulation pneumococcal immunization administered Pneumovax 23 [CVX33] pneumococcal polysaccharide vaccine, 23 valent Seasonal influenza vaccine, injectable, containing preservative, for > 3 years old (Afluria, FluLaval, Fluzone, Fluvirin, Fluarix, Agriflu(>= 18 yo)) Fluzone (>3 yrs.) [DVD956] Influenza, seasonal, inject able Seasonal influenza vaccine, injectable, containing preservative, for > 3 years old (Afluria, FluLaval, Fluzone, Fluvirin, Fluarix, Agriflu(>= 18 yo)) Fluzone (>3 yrs.) [GCR153] Influenza, seasonal, inject able Vital Signs Date [...] - Chem istry sodium, serum 139 mmol/L 620-532 5511/06/26 potassium, serum 4.8 mmol/L 3.5-5.2 chloride, serum 102 mmol/L 98-107 carbon dioxide, venous blood 29.1 mmol/L 21.0-32 .0 blood glucose 179 mg/dL 65-95 calcium, serum 9.7 mg/dL 8.5-10.1 urea nitrogen, blood 31 mg/dL 7-18 creatinine, serum 1.97 mg/dL 0.60-1.30 sodium, serum 136 mmol/L 672-608 8833/06/04 potassium, serum 4.9 mmol/L 3.5-5.2 chloride, serum [...] 0.40 mg/dL 0.00-1.00 cholesterol, serum 218 mg/dL 484-449 5234/12/18 triglyceride, serum, fasting 357 mg/dL 30-200 HDL cholesterol, serum 49 mg/dL 32-60 LDL cholesterol, serum 103.00 mg/dL 5.00-130.00 hemoglobin A1C, blood, as % of total hemoglobin 8.5 % 4.3-6.0 sodium, serum 142 mmol/L 726-136 7561/12/18 carbon dioxide, venous blood 32.5 mmol/L 21.0-32 [...] 0.36-3.74 Encounters Code Encounter Date Provider Facility CPT-52544 [id number] Vst-Est Level III 15:51:57 CDT Baltazar Childers MD [facility]-30100 85452-Rzc Vst-Est Level IV 15:14:58 CDT Charlie Childers MD [facility]-95055 04130-Anj Vst-Est Level IV 15:12:52 REAL ESTATE CLOSING COORDINATOR Charlie Childers MD [facility]-76563 96848-Wav Vst-Est Level IV 15:30:55 REAL ESTATE CLOSING COORDINATOR Charlie Childers MD [facility]-39704 93119-Ehm Vst-Est Level IV 13:49:06 C DT Ann Martinez [facility] CPT-53998 Level 4 Est. Patient 17:26:08 CDT Ann trujillo [facility] [place]-58431 53777-Wfw Vst-Est Level V 14:26:27 CDT Aneudy Childers MD [facility] CPT-47507 Level 4 Est. Patient 17:05:37 CDT Baltazar Childers MD [facility] CPT-22604 Level 4 Est. Patient 16:21:19 REAL ESTATE CLOSING COORDINATOR Baltazar Childers MD [facility] CPT-84689 Level 4 Est. Patient 12:25:11 CDT Baltazar Childers MD [facility] CPT-97530 Level 4 Est. Patient 14:22:31 CDT Baltazar Childers MD [facility] CPT-65011 Level 4 Est. Patient 15:44:38 CDT Shonna Parker APRN [facility] CPT-86714 Level 4 Est. Patient 11:34:17 CDT Baltazar Childers MD [facility]-13379 Level 3 Est. Patient 16:40:40 CDT Baltazar Childers MD [facility]-57411 Level 4 Est. Patient 10:41:24 CDT Baltazar Childers MD [facility]-51799 Level 4 Est. Patient 16:01:48 CDT Baltazar Childers MD [facility]-58271 Level 4 Est. Patient 16:54:07 REAL ESTATE CLOSING COORDINATOR Baltazar Childers MD [facility]-42336 Level 4 Est. Patient 15:42:12 CDT Baltazar Childers MD [facility] CPT-96740 Level 4 Est. Patient 11:29:55 CDT Baltazar Childers MD [facility]-64367 Level 4 Est. Patient 14:15:19 CDT Baltazar Childers MD [facility]-98085 Level 4 Est. Patient 12:20:13 CDT Baltazar Childers MD [facility] CPT-59601 Level 4 Est. Patient 14:52:45 REAL ESTATE CLOSING COORDINATOR Baltazar Childers MD [facility]-29442 Level 4 Est. Patient 14:18:34 REAL ESTATE CLOSING COORDINATOR Baltazar Childers MD [facility] CPT-86596 Level 4 Est. Patient 15:18:29 CDT Baltazar Childers MD [facility]-57545 Level 3 Est. Patient 12:45:34 CDT Baltazar Childers MD [facility] CPT-34627 Level 3 Est. Patient 10:10:11 CDT Baltazar Childers MD [facility]-83432 Level 3 Est. Patient 14:07:50 CDT Baltazar Childers MD [facility]-19989 Level 4 Est. Patient 12:26:10 REAL ESTATE CLOSING COORDINATOR Baltazar Childers MD [facility]-25217 Level 4 Est. Patient 14:45:38 CDT Baltazar Childers MD [facility] CPT-31724 Level 4 New Patient 12:30:48 CDT Baltazar hinton MD [facility] Procedures Code Procedure Name Date Entry Date Standard Desc ription CPT-000 Give Appropriate Flu Vaccine 12:25:14 CDT 2 CPT-23123 First Vx - Ix admin via ID I M or jet injects without counseling by physician 13:08:59 CDT CPT-43424 Fluzone Quadrivalent Intramuscular Suspe nsion 0.5 ML 13:08:59 CDT CPT-53643 Venipuncture Draw Fee 12:04:12 CDT CPT-44836 Lipid - LAB USE ONLY 17:39:15 REAL ESTATE CLOSING COORDINATOR 9 CPT-59705 HGBA1C - LAB USE ONLY 17:39:15 REAL ESTATE CLOSING COORDINATOR CPT-45234 CMP - LAB USE ONLY 17:39:14 REAL ESTATE CLOSING COORDINATOR CPT-61798 Venipuncture Draw Fee 17:39:14 REAL ESTATE CLOSING COORDINATOR CPT-21178 First Vx - Ix admin via ID I M or jet injects without counseling by physician 16:55:17 REAL ESTATE CLOSING COORDINATOR CPT-94977 Fluzone Quadrivalent Intramuscular Suspe nsion 0.5 ML 16:55:17 REAL ESTATE CLOSING COORDINATOR CPT-84785 Renal Panel - LAB USE ONLY 17:39:20 CDT 201 10/31/07 CPT-66349 CBC - LAB USE ONLY 17:39:20 CDT CPT-35858 Venipuncture Draw Fee 17:39:20 CDT CPT-98821 Venipuncture Draw Fee 14:33:30 CDT CPT-13353 Renal Panel - LAB USE ONLY 14:33:30 CDT 201 10/31/07 CPT-37228 CBC - LAB USE ONLY 14:33:29 CDT CPT-98122 Venipuncture Draw Fee 14:50:21 REAL ESTATE CLOSING COORDINATOR CPT-13576 Immunization Single Admin 17:35:35 CDT 2014 CPT-95947 Fluzone Quadrivalent preservative free ( >=3yrs.) 17:35:35 CDT CPT-38713 Venipuncture Draw Fee 12:10:27 REAL ESTATE CLOSING COORDINATOR CPT-53522 Fluzone Quadrivalent Intramuscular Suspe nsion 0.5 ML 10:49:13 CDT CPT-45577 First Vx Component - Ix admi n via ID IM or jet inj without physician counseling 15:17:19 REAL ESTATE CLOSING COORDINATOR CPT-64142 Pneumovax 23 15:17:19 REAL ESTATE CLOSING COORDINATOR CPT-55783 Pneumovax 14:52:45 REAL ESTATE CLOSING COORDINATOR CPT-04121 Venipuncture Draw Fee 14:06:30 REAL ESTATE CLOSING COORDINATOR CPT-000 Give Appropriate Flu Vaccine 14:18:34 REAL ESTATE CLOSING COORDINATOR 2 CPT-26478 Administration single or combination vac cine inc oral 14:46:00 REAL ESTATE CLOSING COORDINATOR CPT-15943 Influenza split virus > age 3 14:46:00 REAL ESTATE CLOSING COORDINATOR CPT-OV Office Visit 19:13:16 CDT CPT-95393 Zostavax 18:41:56 CDT CPT-55953 Administration single or combination vac cine inc oral 12:56:39 CDT CPT-01041 Zoster Vaccine (Zostavax) 12:56:39 CDT 2012 CPT-75920 Venipuncture Draw Fee 10:58:57 CDT CPT-17657 Sono pelvis non OB uterus ovaries cervix 17:45:04 CDT CPT-38447 Sono retroperitoneal complete kidneys an d bladder 17:14:36 CDT CPT-OV Office Visit 14:59:38 REAL ESTATE CLOSING COORDINATOR CPT-J1070 Depo Testosterone 100 mg 14:50:13 CDT 03/05 CPT-44434 Abx/Therapy Injection 14:50:13 CDT CPT-36545 Administration single or combination vac cine inc oral 14:34:43 CDT CPT-26552 Influenza split virus > age 3 14:34:43 CDT CPT-J1070 Depo Testosterone 100 mg 17:37:13 CDT 01/11 CPT-23812 Abx/Therapy Injection 17:37:13 CDT CPT-29694 Venipuncture Draw Fee 16:30:13 CDT CPT-55370 Venipuncture Draw Fee 16:29:43 CDT CPT-J1070 Depo Testosterone 100 mg 14:45:38 CDT 01/11
--- OUTSIDE RECORDS SUMMARY | 2019-10-27 11:41 | XMS REPORT | Clinical Summary ---
Author Author Admin, Elba [employer] Address Unknown Phone Unavailable Allergies, Adverse [...] state, unspecified RESTLESS LEG SYNDROME 333.94 Active Balatzar Nickerson MD Restless legs syndrome (RLS) DIABETES [...] ronary atherosclerosis of unspecified type of vessel, table [place] or graft OTH NONSPC ABN FINDNG RAD&OTH [...] mellitus, type II, uncontrolled 250.02 Active Baltazar Chidlers MD Diabetes mellitus without me ntion of [...] TABLET 1 daily for diabetes SAXAGLIPTIN HCL 32303069786 Active Baltazar Childers MD Active LANTUS SOLOSTAR 100 UNIT/ML SUBCUTANEOUS SOLUTION PEN- INJECTOR 33 units SC daily INSULIN GLARGINE 51147326583 Active Baltazar Childers MD Active TRAMADOL HCL 50 MG ORAL TABLET 1 twice a day as needed for pain TRAMADOL HCL 21014647733 No Longer Active Baltazar Childers MD Active ROBAXIN 500 MG ORAL TABLET Take 1.5 (one and one half) tabs once daily METHOCARBAMOL 99923543997 Active Baltazar Childers MD Active SYNTHROID 112 MCG ORAL TABLET Take one tablet a day LEVOTHYROXINE SODIUM 73918024619 Active Baltazar Childers MD Active TRUE METRIX AIR GLUCOSE METER DEVICE Use as directed BLOOD GLUCOSE MONITORING SUPPL 73125802045 Active Baltazar Childers MD Activ e TRUE METRIX BLOOD GLUCOSE TEST IN VITRO STRIP test blood sug ar BID Dx: E11.65 GLUCOSE BLOOD 61902372462 Active KENDALL Juarez Active NORTRIPTYLINE HCL 50 MG ORAL CAPSULE 1 twice a day for neuropathy 2 NORTRIPTYLINE HCL 19992484294 Active Baltazar Childers MD Acti ve ASPIRIN 81 MG TBEC Take one (1) tablet by mouth daily ASPIRIN 53838362026 Active Baltazar Childers MD Active GABAPENTIN 300 MG ORAL CAPSULE 1 three times a day 201 12/03/26 GABAPENTIN 03281295621 No Longer Active Baltazar Childers MD Activ e LISINOPRIL 20 MG ORAL TABLET 1 tablet by mouth daily at night 2016 LISINOPRIL 88135615734 Active Baltazar Childers MD Active ZITHROMAX Z-ISAIAS 250 MG ORAL TABLET Take two tablets to day and then 1 tablet daily for 4 days AZITHROMYCIN 95907806215 No Longer A ctive Baltazar Childers MD Active AMLODIPINE BESYLATE 5 MG ORAL TABLET 1 tab daily for HTN AMLODIPINE BESYLATE 53865412754 Active Baltazar Childers MD Active GLIPIZIDE 10 MG ORAL TABLET take 2 tablets twice daily GLIPIZIDE 52981965210 Active Baltazar Childers MD Active SUCRALFATE 1 GM ORAL TABLET 1 four times a day to coat the stoma ch SUCRALFATE 23451606319 No Longer Active Baltazar Childers MD Active PEN NEEDLES 31G X 6 MM use 1 daily INSULIN PEN NE EDLE 19860584490 Active KENDALL Juarez Active TOUJEO SOLOSTAR 300 UNIT/ML SUBCUTANEOUS SOLUTION PEN- INJECTOR 10 units SC daily INSULIN GLARGINE 79081727132 No Longer Active Rola Godinez RMA Active NAPROXEN SODIUM 220 MG ORAL TABLET 1 three times a day as needed NAPROXEN SODIUM 62358826378 No Longer Active Baltazar Childers MD Active ATORVASTATIN CALCIUM 20 MG ORAL TABLET Take 1 tab daily ATORVASTATIN CALCIUM 56809854047 Active Baltazar Childers MD A ctive FUROSEMIDE 40 MG ORAL TABLET Take one by mouth daily FUROSEMIDE 95182663304 Active Baltazar Childers MD Active LISINOPRIL 20 MG ORAL TABLET Take one by mouth daily at bedtime LISINOPRIL 56989722251 No Longer Active Baltazar Childers MD Active ONETOUCH ULTRA BLUE IN VITRO STRIP Test twice a day 07/11/11 GLUCOSE BLOOD 63804810292 No Longer Active Baltazar Childers MD Acti ve TRUEPLUS LANCETS 33G Test twice a day LANCETS 3247012 7554 Active KENDALL Juarez Active TRUEDRAW LANCING DEVICE Test twice a day LANCET DEVICES 44483561459 Active Baltazar Childers MD Active TRUETRACK BLOOD GLUCOSE w/Device KIT Test twice a day BLOOD GLUCOSE MONITORING SUPPL 60453483208 Active Baltazar Childers MD Activ e HYDROCODONE-ACETAMINOPHEN 7.5-325 MG ORAL TABLET Take 1 tab every 6-8 hours PRN HYDROCODONE-ACETAMINOPHEN 84386646360 Active Baltazar Nickerson MD Active GABAPENTIN 300 MG ORAL CAPSULE 1 po qd x 2 days, then 1 po BID x 2 days, then 1 po TID GABAPENTIN 56674752166 No Longer Active Baltazar Childers MD Active NAPROXEN 500 MG ORAL TABLET 1 tablet by mouth twice daily NAPROXEN 79755600989 No Longer Active Baltazar Childers MD Active PROAIR HFA 108 (90 Base) MCG/ACT INHALATION AEROSOL SO LUTION 2 puffs four times a day as needed ALBUTEROL SULFATE 00427633205 Active Shun Arellano LPN Active DEPO-TESTOSTERONE 200 MG/ML INTRAMUSCULAR SOLUTION as directed TESTOSTERONE CYPIONATE 95405314828 No Longer Active Baltazar Childers MD Active LIPITOR 20 MG ORAL TABLET Take one by mouth daily in evening ATORVASTATIN CALCIUM 53981107746 No Longer Active Baltazar Childers MD Active CRESTOR 10 MG ORAL TABLET 1 by mouth every day ROSUVASTATIN CALCIUM 37824441633 No Longer Active Baltazar Childers MD Active PHENTERMINE HCL 37.5 MG ORAL TABLET Take one by mouth daily PHENTERMINE HCL 15174207456 No Longer Active Baltazar Childers MD Ac tive TIZANIDINE HCL 4 MG ORAL TABLET 1 daily as needed for muscle spa sm TIZANIDINE HCL 23046080483 No Longer Active Dawna Salazar RN Active [id number] 50-325-40 MG ORAL TABLET 1 fo ur times a day as needed for heacache [id number] 35653972876 Active KENDALL Juarez Active SUMATRIPTAN SUCCINATE 100 MG ORAL TABLET 1 tablet by m outh at onset of migraine as needed SUMATRIPTAN SUCCINATE 82234481890 Active Baltazar Nickerson MD Active LORATADINE 10 MG ORAL TABLET Take one by mouth daily LORATADINE 52796143450 Active Baltazar Childers MD Active OMEPRAZOLE 20 MG ORAL CAPSULE DELAYED RELEASE Take one by mouth jostin ly OMEPRAZOLE 75431711853 Active aBltazar Childers MD Active HYDROXYZINE HCL 25 MG ORAL TABLET Take one by mouth daily HYDROXYZINE HCL 33386701811 Active Baltazar Childers MD Active ALPRAZOLAM 1 MG ORAL TABLET 1 tablet by mouth daily at bedti me for restless leg ALPRAZOLAM 21517678634 Active Baltazar Childers MD Active METFORMIN HCL 1000 MG ORAL TABLET Take one by mouth twice daily METFORMIN HCL 48696797280 Active Baltazar Childers MD Active TIZANIDINE HCL 4 MG ORAL TABLET 1 daily as needed for muscle spa sm TIZANIDINE HCL 4 MG ORAL TABLET 037142 TIZANIDINE HCL Inactive PHENTERMINE HCL 37.5 MG ORAL TABLET Take one by mouth daily PHENTERMINE HCL 37.5 MG ORAL TABLET 727205 PHENTERMINE HCL Inac tive CRESTOR 10 MG ORAL TABLET 1 by mouth every day CRESTOR 10 MG ORAL TABLET 774990 ROSUVASTATIN CALCIUM Inactive LIPITOR 20 MG ORAL TABLET Take one by mouth daily in evening LIPITOR 20 MG ORAL TABLET 684116 ATORVASTATIN CALCIUM Inactive DEPO-TESTOSTERONE 200 MG/ML INTRAMUSCULAR SOLUTION as directed DEPO-TESTOSTERONE 200 MG/ML INTRAMUSCULAR SOLUTION 2102136 RUFINO TOSTERONE CYPIONATE Inactive NAPROXEN 500 MG ORAL TABLET 1 tablet by mouth twice daily NAPROXEN 500 MG ORAL TABLET 546989 NAPROXEN Inactive GABAPENTIN 300 MG ORAL CAPSULE 1 po qd x 2 days, then 1 po BID x 2 days, then 1 po TID GABAPENTIN 300 MG ORAL CAPSULE 358642 GABAP ENTIN Inactive ONETOUCH ULTRA BLUE IN VITRO STRIP Test twice a day 07/11/11 ONETOUCH ULTRA BLUE IN VITRO STRIP GLUCOSE BLOOD Inact amie NAPROXEN SODIUM 220 MG ORAL TABLET 1 three times a day as needed NAPROXEN SODIUM 220 MG ORAL TABLET 297533 NAPROXEN SODI UM Inactive TOUJEO SOLOSTAR 300 UNIT/ML SUBCUTANEOUS SOLUTION PEN- INJECTOR 10 units SC daily TOUJEO SOLOSTAR 300 UNIT/ML SUBCUTANEOUS SOLUTION PEN-INJECTOR INSULIN GLARGINE Inactive SUCRALFATE 1 GM ORAL TABLET 1 four times a day to coat the stoma ch SUCRALFATE 1 GM ORAL TABLET 738775 SUCRALFATE Inac tive GABAPENTIN 300 MG ORAL CAPSULE 1 three times a day 201 12/03/26 GABAPENTIN 300 MG ORAL CAPSULE 777231 GABAPENTIN Inactive TRAMADOL HCL 50 MG ORAL TABLET 1 twice a day as needed for pain TRAMADOL HCL 50 MG ORAL TABLET 672177 TRAMADOL HCL I nactive ZITHROMAX Z-ISAIAS 250 MG ORAL TABLET Take two tablets to day and then 1 tablet daily for 4 days ZITHROMAX Z-ISAIAS 250 MG ORAL TAB LET 658519 AZITHROMYCIN Inactive Immunizations Vaccine Administration Date Value Standard Floyd cription influenza immunization (Flu Vax) has been administered 05/11 Done according to patient influenza virus vaccine, unspecified for mulation pneumococcal immunization administered Pneumovax 23 [CVX33] pneumococcal polysaccharide vaccine, 23 valent Seasonal influenza vaccine, injectable, containing preservative, for > 3 years old (Afluria, FluLaval, Fluzone, Fluvirin, Fluarix, Agriflu(>= 18 yo)) Fluzone (>3 yrs.) [[id number]] Influenza, seasonal, inject able Seasonal influenza vaccine, injectable, containing preservative, for > 3 years old (Afluria, FluLaval, Fluzone, Fluvirin, Fluarix, Agriflu(>= 18 yo)) Fluzone (>3 yrs.) [GLR229] Influenza, seasonal, inject able Vital Signs Date [...] - Chem istry sodium, serum 139 mmol/L 916-025 8429/06/26 potassium, serum 4.8 mmol/L 3.5-5.2 chloride, serum 102 mmol/L 98-107 carbon dioxide, venous blood 29.1 mmol/L 21.0-32 .0 blood glucose 179 mg/dL 65-95 calcium, serum 9.7 mg/dL 8.5-10.1 urea nitrogen, blood 31 mg/dL 7-18 creatinine, serum 1.97 mg/dL 0.60-1.30 sodium, serum 136 mmol/L 493-087 1461/06/04 potassium, serum 4.9 mmol/L 3.5-5.2 chloride, serum [...] 0.40 mg/dL 0.00-1.00 cholesterol, serum 218 mg/dL 392-277 7366/12/18 triglyceride, serum, fasting 357 mg/dL 30-200 HDL cholesterol, serum 49 mg/dL 32-60 LDL cholesterol, serum 103.00 mg/dL 5.00-130.00 hemoglobin A1C, blood, as % of total hemoglobin 8.5 % 4.3-6.0 sodium, serum 142 mmol/L 243-951 9314/12/18 carbon dioxide, venous blood 32.5 mmol/L 21.0-32 [...] 0.36-3.74 Encounters Code Encounter Date Provider Facility CPT-93966 [id number] Vst-Est Level III 15:51:57 CDT Baltazar Childers MD [facility]-70836 [id number] Vst-Est Level IV 15:14:58 CDT Charlie Childers MD [facility]-07870 [id number] Vst-Est Level IV 15:12:52 [employer] Charlie Childers MD [facility]-14451 [id number] Vst-Est Level IV 15:30:55 [employer] Charlie Childers MD [facility]-03691 [id number] Vst-Est Level IV 13:49:06 C DT Ann Martinez [facility] [place] CPT-50204 Level 4 Est. Patient 17:26:08 CDT Ann trujillo [facility]-36013 28884-Yal Vst-Est Level V 14:26:27 CDT Aneudy Childers MD [facility] CPT-57804 Level 4 Est. Patient 17:05:37 CDT Baltazar Childers MD [facility] CPT-32246 Level 4 Est. Patient 16:21:19 [employer] Baltazar Childers MD [facility] CPT-81812 Level 4 Est. Patient 12:25:11 CDT Baltazar Childers MD [facility] CPT-54482 Level 4 Est. Patient 14:22:31 CDT Baltazar Childers MD [facility] CPT-34735 Level 4 Est. Patient 15:44:38 CDT Shonna Parker APRN [facility] CPT-68540 Level 4 Est. Patient 11:34:17 CDT Baltazar Childers MD [facility]-73771 Level 3 Est. Patient 16:40:40 CDT Baltazar Childers MD [facility]-08294 Level 4 Est. Patient 10:41:24 CDT Baltazar Childers MD [facility]-78213 Level 4 Est. Patient 16:01:48 CDT Baltazar Childers MD [facility]-10426 Level 4 Est. Patient 16:54:07 [employer] Baltazar Childers MD [facility]-44110 Level 4 Est. Patient 15:42:12 CDT Baltazar Childers MD [facility] CPT-13787 Level 4 Est. Patient 11:29:55 CDT Baltazar Childers MD [facility]-75621 Level 4 Est. Patient 14:15:19 CDT Baltazar Childers MD [facility]-60873 Level 4 Est. Patient 12:20:13 CDT Baltazar Childers MD [facility] CPT-24822 Level 4 Est. Patient 14:52:45 [employer] Baltazar Childers MD [facility]-97842 Level 4 Est. Patient 14:18:34 [employer] Baltazar Childers MD [facility] CPT-92129 Level 4 Est. Patient 15:18:29 CDT Baltazar Childers MD [facility]-71200 Level 3 Est. Patient 12:45:34 CDT Baltazar Childers MD [facility] CPT-91746 Level 3 Est. Patient 10:10:11 CDT Baltazar Childers MD [facility]-38328 Level 3 Est. Patient 14:07:50 CDT Baltazar Childers MD [facility]-34111 Level 4 Est. Patient 12:26:10 [employer] Baltazar Childers MD [facility]-17967 Level 4 Est. Patient 14:45:38 CDT Baltazar Childers MD [facility] CPT-10174 Level 4 New Patient 12:30:48 CDT Baltazar hinton MD [facility] Procedures Code Procedure Name Date Entry Date Standard Desc ription CPT-000 Give Appropriate Flu Vaccine 12:25:14 CDT 2 CPT-64993 First Vx - Ix admin via ID I M or jet injects without counseling by physician 13:08:59 CDT CPT-88495 Fluzone Quadrivalent Intramuscular Suspe nsion 0.5 ML 13:08:59 CDT CPT-28502 Venipuncture Draw Fee 12:04:12 CDT CPT-82897 Lipid - LAB USE ONLY 17:39:15 [employer] 9 CPT-06089 HGBA1C - LAB USE ONLY 17:39:15 [employer] CPT-16830 CMP - LAB USE ONLY 17:39:14 [employer] CPT-92092 Venipuncture Draw Fee 17:39:14 [employer] CPT-62048 First Vx - Ix admin via ID I M or jet injects without counseling by physician 16:55:17 [employer] CPT-52373 Fluzone Quadrivalent Intramuscular Suspe nsion 0.5 ML 16:55:17 [employer] CPT-71886 Renal Panel - LAB USE ONLY 17:39:20 CDT 201 10/31/07 CPT-04051 CBC - LAB USE ONLY 17:39:20 CDT CPT-94895 Venipuncture Draw Fee 17:39:20 CDT CPT-80606 Venipuncture Draw Fee 14:33:30 CDT CPT-80764 Renal Panel - LAB USE ONLY 14:33:30 CDT 201 10/31/07 CPT-44935 CBC - LAB USE ONLY 14:33:29 CDT CPT-22192 Venipuncture Draw Fee 14:50:21 [employer] CPT-39496 Immunization Single Admin 17:35:35 CDT 2014 CPT-91157 Fluzone Quadrivalent preservative free ( >=3yrs.) 17:35:35 CDT CPT-96655 Venipuncture Draw Fee 12:10:27 [employer] CPT-91715 Fluzone Quadrivalent Intramuscular Suspe nsion 0.5 ML 10:49:13 CDT CPT-35724 First Vx Component - Ix admi n via ID IM or jet inj without physician counseling 15:17:19 [employer] CPT-00816 Pneumovax 23 15:17:19 [employer] CPT-00169 Pneumovax 14:52:45 [employer] CPT-78757 Venipuncture Draw Fee 14:06:30 [employer] CPT-000 Give Appropriate Flu Vaccine 14:18:34 [employer] 2 CPT-89497 Administration single or combination vac cine inc oral 14:46:00 [employer] CPT-58877 Influenza split virus > age 3 14:46:00 [employer] CPT-OV Office Visit 19:13:16 CDT CPT-15199 Zostavax 18:41:56 CDT CPT-44050 Administration single or combination vac cine inc oral 12:56:39 CDT CPT-73102 Zoster Vaccine (Zostavax) 12:56:39 CDT 2012 CPT-08190 Venipuncture Draw Fee 10:58:57 CDT CPT-21710 Sono pelvis non OB uterus ovaries cervix 17:45:04 CDT CPT-62241 Sono retroperitoneal complete kidneys an d bladder 17:14:36 CDT CPT-OV Office Visit 14:59:38 [employer] CPT-J1070 Depo Testosterone 100 mg 14:50:13 CDT 03/05 CPT-72423 Abx/Therapy Injection 14:50:13 CDT CPT-48497 Administration single or combination vac cine inc oral 14:34:43 CDT CPT-83951 Influenza split virus > age 3 14:34:43 CDT CPT-J1070 Depo Testosterone 100 mg 17:37:13 CDT 01/11 CPT-41758 Abx/Therapy Injection 17:37:13 CDT CPT-91338 Venipuncture Draw Fee 16:30:13 CDT CPT-11888 Venipuncture Draw Fee 16:29:43 CDT CPT-J1070 Depo Testosterone 100 mg 14:45:38 CDT 01/11
--- OUTSIDE RECORDS SUMMARY | 2019-10-27 11:41 | XMS REPORT | Clinical Summary ---
Author Author Admin, Elba Lance [facility] Address Unknown Phone Unavailable Allergies, Adverse [...] syndrome (RLS) DIABETES MELLITUS 250.00 Active Baltazar Childres MD Diabetes mellitus without mention of complication, [...] ronary atherosclerosis of unspecified type of vessel, clark's point or graft OTH NONSPC ABN FINDNG RAD&OTH [...] TABLET 1 daily for diabetes SAXAGLIPTIN HCL 61773912603 Active Baltazar Childers MD Active LANTUS SOLOSTAR 100 UNIT/ML SUBCUTANEOUS SOLUTION PEN- INJECTOR 33 units SC daily INSULIN GLARGINE 36241428360 Active Baltazar Childers MD Active TRAMADOL HCL 50 MG ORAL TABLET 1 twice a day as needed for pain TRAMADOL HCL 85053180189 No Longer Active Baltazar Childers MD Active ROBAXIN 500 MG ORAL TABLET Take 1.5 (one and one half) tabs once daily METHOCARBAMOL 09019621141 Active Baltazar Childers MD Active SYNTHROID 112 MCG ORAL TABLET Take one tablet a day LEVOTHYROXINE SODIUM 67571507003 Active Baltazar Childers MD Active TRUE METRIX AIR GLUCOSE METER DEVICE Use as directed BLOOD GLUCOSE MONITORING SUPPL 23662378379 Active Baltazar Childers MD Activ e TRUE METRIX BLOOD GLUCOSE TEST IN VITRO STRIP test blood sug ar BID Dx: E11.65 GLUCOSE BLOOD 48843203695 Active KENDALL Juarez Active NORTRIPTYLINE HCL 50 MG ORAL CAPSULE 1 twice a day for neuropathy 2 NORTRIPTYLINE HCL 21641056111 Active Baltazar Childers MD Acti ve ASPIRIN 81 MG TBEC Take one (1) tablet by mouth daily ASPIRIN 87971806859 Active Baltazar Childers MD Active GABAPENTIN 300 MG ORAL CAPSULE 1 three times a day 201 12/03/26 GABAPENTIN 63350994559 No Longer Active Baltazar Childers MD Activ e LISINOPRIL 20 MG ORAL TABLET 1 tablet by mouth daily at night 2016 LISINOPRIL 20786904880 Active Baltazar Childers MD Active ZITHROMAX Z-ISAIAS 250 MG ORAL TABLET Take two tablets to day and then 1 tablet daily for 4 days AZITHROMYCIN 72670265154 No Longer A ctive Baltazar Childers MD Active AMLODIPINE BESYLATE 5 MG ORAL TABLET 1 tab daily for HTN AMLODIPINE BESYLATE 49471642305 Active Baltazar Childers MD Active GLIPIZIDE 10 MG ORAL TABLET take 2 tablets twice daily GLIPIZIDE 40129069639 Active Baltazar Childers MD Active SUCRALFATE 1 GM ORAL TABLET 1 four times a day to coat the stoma ch SUCRALFATE 20801213480 No Longer Active Baltazar Childers MD Active PEN NEEDLES 31G X 6 MM use 1 daily INSULIN PEN NE EDLE 24834058743 Active KENDALL Juarez Active TOUJEO SOLOSTAR 300 UNIT/ML SUBCUTANEOUS SOLUTION PEN- INJECTOR 10 units SC daily INSULIN GLARGINE 02432202532 No Longer Active Rola Godinez RMA Active NAPROXEN SODIUM 220 MG ORAL TABLET 1 three times a day as needed NAPROXEN SODIUM 40814447162 No Longer Active Baltazar Childers MD Active ATORVASTATIN CALCIUM 20 MG ORAL TABLET Take 1 tab daily ATORVASTATIN CALCIUM 23972632390 Active Baltazar Childers MD A ctive FUROSEMIDE 40 MG ORAL TABLET Take one by mouth daily FUROSEMIDE 89972902579 Active Baltazar Childers MD Active LISINOPRIL 20 MG ORAL TABLET Take one by mouth daily at bedtime LISINOPRIL 63640470943 No Longer Active Baltazar Chliders MD Active ONETOUCH ULTRA BLUE IN VITRO STRIP Test twice a day 07/11/11 GLUCOSE BLOOD 07012739604 No Longer Active Baltazar Childers MD Acti ve TRUEPLUS LANCETS 33G Test twice a day LANCETS 0754042 5097 Active KENDALL Juarez Active TRUEDRAW LANCING DEVICE Test twice a day LANCET DEVICES 76504465799 Active Baltazar Childers MD Active TRUETRACK BLOOD GLUCOSE w/Device KIT Test twice a day BLOOD GLUCOSE MONITORING SUPPL 01065203595 Active Baltazar Childers MD Activ e HYDROCODONE-ACETAMINOPHEN 7.5-325 MG ORAL TABLET Take 1 tab every 6-8 hours PRN HYDROCODONE-ACETAMINOPHEN 37714224801 Active Baltazar Nickerson MD Active GABAPENTIN 300 MG ORAL CAPSULE 1 po qd x 2 days, then 1 po BID x 2 days, then 1 po TID GABAPENTIN 89326340304 No Longer Active Baltazar Childers MD Active NAPROXEN 500 MG ORAL TABLET 1 tablet by mouth twice daily NAPROXEN 86260404059 No Longer Active Baltazar Childers MD Active PROAIR HFA 108 (90 Base) MCG/ACT INHALATION AEROSOL SO LUTION 2 puffs four times a day as needed ALBUTEROL SULFATE 62453105779 Active Shun Arellano LPN Active DEPO-TESTOSTERONE 200 MG/ML INTRAMUSCULAR SOLUTION as directed TESTOSTERONE CYPIONATE 69852382275 No Longer Active Baltazar Childers MD Active LIPITOR 20 MG ORAL TABLET Take one by mouth daily in evening ATORVASTATIN CALCIUM 32173257382 No Longer Active Baltazar Childers MD Active CRESTOR 10 MG ORAL TABLET 1 by mouth every day ROSUVASTATIN CALCIUM 44511213539 No Longer Active Baltazar Childers MD Active PHENTERMINE HCL 37.5 MG ORAL TABLET Take one by mouth daily PHENTERMINE HCL 95810438780 No Longer Active Baltazar Childers MD Ac tive TIZANIDINE HCL 4 MG ORAL TABLET 1 daily as needed for muscle spa sm TIZANIDINE HCL 15396086373 No Longer Active Dawna Salazar RN Active [id number] 50-325-40 MG ORAL TABLET 1 fo ur times a day as needed for heacache [id number] 26340820436 Active KENDALL Juarez Active SUMATRIPTAN SUCCINATE 100 MG ORAL TABLET 1 tablet by m outh at onset of migraine as needed SUMATRIPTAN SUCCINATE 24680151772 Active Baltazar Nickerson MD Active LORATADINE 10 MG ORAL TABLET Take one by mouth daily LORATADINE 52439006409 Active Baltazar Childers MD Active OMEPRAZOLE 20 MG ORAL CAPSULE DELAYED RELEASE Take one by mouth jostin ly OMEPRAZOLE 05705181042 Active Baltazar Childers MD Active HYDROXYZINE HCL 25 MG ORAL TABLET Take one by mouth daily HYDROXYZINE HCL 77770314569 Active Baltazar Childers MD Active ALPRAZOLAM 1 MG ORAL TABLET 1 tablet by mouth daily at bedti me for restless leg ALPRAZOLAM 15271813153 Active Baltazar Childers MD Active METFORMIN HCL 1000 MG ORAL TABLET Take one by mouth twice daily METFORMIN HCL 52766313226 Active Baltazar Childers MD Active TIZANIDINE HCL 4 MG ORAL TABLET 1 daily as needed for muscle spa sm TIZANIDINE HCL 4 MG ORAL TABLET 373570 TIZANIDINE HCL Inactive PHENTERMINE HCL 37.5 MG ORAL TABLET Take one by mouth daily PHENTERMINE HCL 37.5 MG ORAL TABLET 975486 PHENTERMINE HCL Inac tive CRESTOR 10 MG ORAL TABLET 1 by mouth every day CRESTOR 10 MG ORAL TABLET 320485 ROSUVASTATIN CALCIUM Inactive LIPITOR 20 MG ORAL TABLET Take one by mouth daily in evening LIPITOR 20 MG ORAL TABLET 095366 ATORVASTATIN CALCIUM Inactive DEPO-TESTOSTERONE 200 MG/ML INTRAMUSCULAR SOLUTION as directed DEPO-TESTOSTERONE 200 MG/ML INTRAMUSCULAR SOLUTION 3279993 RUFINO TOSTERONE CYPIONATE Inactive NAPROXEN 500 MG ORAL TABLET 1 tablet by mouth twice daily NAPROXEN 500 MG ORAL TABLET 109978 NAPROXEN Inactive GABAPENTIN 300 MG ORAL CAPSULE 1 po qd x 2 days, then 1 po BID x 2 days, then 1 po TID GABAPENTIN 300 MG ORAL CAPSULE 085773 GABAP ENTIN Inactive ONETOUCH ULTRA BLUE IN VITRO STRIP Test twice a day 07/11/11 ONETOUCH ULTRA BLUE IN VITRO STRIP GLUCOSE BLOOD Inact amie NAPROXEN SODIUM 220 MG ORAL TABLET 1 three times a day as needed NAPROXEN SODIUM 220 MG ORAL TABLET 628586 NAPROXEN SODI UM Inactive TOUJEO SOLOSTAR 300 UNIT/ML SUBCUTANEOUS SOLUTION PEN- INJECTOR 10 units SC daily TOUJEO SOLOSTAR 300 UNIT/ML SUBCUTANEOUS SOLUTION PEN-INJECTOR INSULIN GLARGINE Inactive SUCRALFATE 1 GM ORAL TABLET 1 four times a day to coat the stoma ch SUCRALFATE 1 GM ORAL TABLET 618695 SUCRALFATE Inac tive GABAPENTIN 300 MG ORAL CAPSULE 1 three times a day 201 12/03/26 GABAPENTIN 300 MG ORAL CAPSULE 935508 GABAPENTIN Inactive TRAMADOL HCL 50 MG ORAL TABLET 1 twice a day as needed for pain TRAMADOL HCL 50 MG ORAL TABLET 684833 TRAMADOL HCL I nactive ZITHROMAX Z-ISAIAS 250 MG ORAL TABLET Take two tablets to day and then 1 tablet daily for 4 days ZITHROMAX Z-ISAIAS 250 MG ORAL TAB LET 565167 AZITHROMYCIN Inactive Immunizations Vaccine Administration Date Value Standard Floyd cription influenza immunization (Flu Vax) has been administered 05/11 Done according to patient influenza virus vaccine, unspecified for mulation pneumococcal immunization administered Pneumovax 23 [CVX33] pneumococcal polysaccharide vaccine, 23 valent Seasonal influenza vaccine, injectable, containing preservative, for > 3 years old (Afluria, FluLaval, Fluzone, Fluvirin, Fluarix, Agriflu(>= 18 yo)) Fluzone (>3 yrs.) [ASE150] Influenza, seasonal, inject able Seasonal influenza vaccine, injectable, containing preservative, for > 3 years old (Afluria, FluLaval, Fluzone, Fluvirin, Fluarix, Agriflu(>= 18 yo)) Fluzone (>3 yrs.) [QKP995] Influenza, seasonal, inject able Vital Signs Date [...] - Chem istry sodium, serum 139 mmol/L 176-113 6498/06/26 potassium, serum 4.8 mmol/L 3.5-5.2 chloride, serum 102 mmol/L 98-107 carbon dioxide, venous blood 29.1 mmol/L 21.0-32 .0 blood glucose 179 mg/dL 65-95 calcium, serum 9.7 mg/dL 8.5-10.1 urea nitrogen, blood 31 mg/dL 7-18 creatinine, serum 1.97 mg/dL 0.60-1.30 sodium, serum 136 mmol/L 304-351 0969/06/04 potassium, serum 4.9 mmol/L 3.5-5.2 chloride, serum [...] 0.40 mg/dL 0.00-1.00 cholesterol, serum 218 mg/dL 390-327 7063/12/18 triglyceride, serum, fasting 357 mg/dL 30-200 HDL cholesterol, serum 49 mg/dL 32-60 LDL cholesterol, serum 103.00 mg/dL 5.00-130.00 hemoglobin A1C, blood, as % of total hemoglobin 8.5 % 4.3-6.0 sodium, serum 142 mmol/L 798-131 1012/12/18 carbon dioxide, venous blood 32.5 mmol/L 21.0-32 [...] 0.36-3.74 Encounters Code Encounter Date Provider Facility CPT-74644 [id number] Vst-Est Level III 15:51:57 CDT Baltazar Childers MD -[id number] Vst-Est Level IV 15:14:58 CDT Charlie Childers MD -[id number] Vst-Est Level IV 15:12:52 FISH PROCESSING SUPERVISOR Charlie Childers MD -[id number] Vst-Est Level IV 15:30:55 FISH PROCESSING SUPERVISOR Charlie Childers MD -[id number] [id number] Vst-Est Level IV 13:49:06 C DT Ann Martinez [facility] [[email or web address] CPT-23081 Level 4 Est. Patient 17:26:08 CDT Ann trujillo [facility]-95571 [id number] Vst-Est Level V 14:26:27 CDT Aneudy Childers MD [facility] CPT-67319 Level 4 Est. Patient 17:05:37 CDT Baltazar Childers MD [facility] CPT-58430 Level 4 Est. Patient 16:21:19 FISH PROCESSING SUPERVISOR Baltazar Childers MD [facility] CPT-08512 Level 4 Est. Patient 12:25:11 CDT Baltazar Childers MD [facility] CPT-16319 Level 4 Est. Patient 14:22:31 CDT Baltazar Childers MD [facility] CPT-28358 Level 4 Est. Patient 15:44:38 CDT Shonna Parker APRN [facility] CPT-17935 Level 4 Est. Patient 11:34:17 CDT Baltazar Childers MD -[id number] Level 3 Est. Patient 16:40:40 CDT Baltazar Childers MD -05739 Level 4 Est. Patient 10:41:24 CDT Baltazar Childers MD -09481 Level 4 Est. Patient 16:01:48 CDT Baltazar Childers MD -71035 Level 4 Est. Patient 16:54:07 FISH PROCESSING SUPERVISOR Baltazar Childers MD -30382 Level 4 Est. Patient 15:42:12 CDT Baltazar Childers MD [facility] CPT-73570 Level 4 Est. Patient 11:29:55 CDT Baltazar Childers MD [facility]-88329 Level 4 Est. Patient 14:15:19 CDT Baltazar Childers MD [facility]-18932 Level 4 Est. Patient 12:20:13 CDT Baltazar Childers MD [facility] CPT-78193 Level 4 Est. Patient 14:52:45 FISH PROCESSING SUPERVISOR Baltazar Childers MD [facility]-40119 Level 4 Est. Patient 14:18:34 FISH PROCESSING SUPERVISOR Baltazar Childers MD [facility] CPT-35944 Level 4 Est. Patient 15:18:29 CDT Baltazar Childers MD [facility]-33220 Level 3 Est. Patient 12:45:34 CDT Baltazar Childers MD [facility] CPT-72130 Level 3 Est. Patient 10:10:11 CDT Baltazar Childers MD [facility]-27472 Level 3 Est. Patient 14:07:50 CDT Baltazar Childers MD [facility]-66010 Level 4 Est. Patient 12:26:10 FISH PROCESSING SUPERVISOR Baltazar Childers MD [facility]-34088 Level 4 Est. Patient 14:45:38 CDT Baltazar Childers MD [facility] CPT-70831 Level 4 New Patient 12:30:48 CDT Baltazar hinton MD [facility] Procedures Code Procedure Name Date Entry Date Standard Desc ription CPT-000 Give Appropriate Flu Vaccine 12:25:14 CDT 2 CPT-46216 First Vx - Ix admin via ID I M or jet injects without counseling by physician 13:08:59 CDT CPT-85211 Fluzone Quadrivalent Intramuscular Suspe nsion 0.5 ML 13:08:59 CDT CPT-45164 Venipuncture Draw Fee 12:04:12 CDT CPT-45352 Lipid - LAB USE ONLY 17:39:15 FISH PROCESSING SUPERVISOR 9 CPT-67443 HGBA1C - LAB USE ONLY 17:39:15 FISH PROCESSING SUPERVISOR CPT-65010 CMP - LAB USE ONLY 17:39:14 FISH PROCESSING SUPERVISOR CPT-88301 Venipuncture Draw Fee 17:39:14 FISH PROCESSING SUPERVISOR CPT-79932 First Vx - Ix admin via ID I M or jet injects without counseling by physician 16:55:17 FISH PROCESSING SUPERVISOR CPT-96192 Fluzone Quadrivalent Intramuscular Suspe nsion 0.5 ML 16:55:17 FISH PROCESSING SUPERVISOR CPT-01274 Renal Panel - LAB USE ONLY 17:39:20 CDT 201 10/31/07 CPT-89081 CBC - LAB USE ONLY 17:39:20 CDT CPT-18899 Venipuncture Draw Fee 17:39:20 CDT CPT-22163 Venipuncture Draw Fee 14:33:30 CDT CPT-47542 Renal Panel - LAB USE ONLY 14:33:30 CDT 201 10/31/07 CPT-47904 CBC - LAB USE ONLY 14:33:29 CDT CPT-35961 Venipuncture Draw Fee 14:50:21 FISH PROCESSING SUPERVISOR CPT-83578 Immunization Single Admin 17:35:35 CDT 2014 CPT-80832 Fluzone Quadrivalent preservative free ( >=3yrs.) 17:35:35 CDT CPT-67011 Venipuncture Draw Fee 12:10:27 FISH PROCESSING SUPERVISOR CPT-44045 Fluzone Quadrivalent Intramuscular Suspe nsion 0.5 ML 10:49:13 CDT CPT-64968 First Vx Component - Ix admi n via ID IM or jet inj without physician counseling 15:17:19 FISH PROCESSING SUPERVISOR CPT-34649 Pneumovax 23 15:17:19 FISH PROCESSING SUPERVISOR CPT-86203 Pneumovax 14:52:45 FISH PROCESSING SUPERVISOR CPT-87968 Venipuncture Draw Fee 14:06:30 FISH PROCESSING SUPERVISOR CPT-000 Give Appropriate Flu Vaccine 14:18:34 FISH PROCESSING SUPERVISOR 2 CPT-19382 Administration single or combination vac cine inc oral 14:46:00 FISH PROCESSING SUPERVISOR CPT-18227 Influenza split virus > age 3 14:46:00 FISH PROCESSING SUPERVISOR CPT-OV Office Visit 19:13:16 CDT CPT-73754 Zostavax 18:41:56 CDT CPT-66472 Administration single or combination vac cine inc oral 12:56:39 CDT CPT-82978 Zoster Vaccine (Zostavax) 12:56:39 CDT 2012 CPT-77230 Venipuncture Draw Fee 10:58:57 CDT CPT-64331 Sono pelvis non OB uterus ovaries cervix 17:45:04 CDT CPT-68360 Sono retroperitoneal complete kidneys an d bladder 17:14:36 CDT CPT-OV Office Visit 14:59:38 FISH PROCESSING SUPERVISOR CPT-J1070 Depo Testosterone 100 mg 14:50:13 CDT 03/05 CPT-57631 Abx/Therapy Injection 14:50:13 CDT CPT-22534 Administration single or combination vac cine inc oral 14:34:43 CDT CPT-01364 Influenza split virus > age 3 14:34:43 CDT CPT-J1070 Depo Testosterone 100 mg 17:37:13 CDT 01/11 CPT-57498 Abx/Therapy Injection 17:37:13 CDT CPT-14814 Venipuncture Draw Fee 16:30:13 CDT CPT-18798 Venipuncture Draw Fee 16:29:43 CDT CPT-J1070 Depo Testosterone 100 mg 14:45:38 CDT 01/11
--- OUTSIDE RECORDS SUMMARY | 2019-10-27 11:42 | XMS REPORT | Clinical Summary ---
Author Author Admin, Elba Lance [facility] Address Unknown Phone Unavailable Allergies, Adverse Reactions, [...] MD Anemia, unspecified RENAL INSUFFICIENCY 593.9 Active Balatzar bynum MD Unspecified disorder of kidney and ureter CAD 414.00 Active Gladys Arce LRT Co ronary atherosclerosis of unspecified type of vessel, [place] or graft OTH NONSPC ABN FINDNG RAD&OTH [...] stage III 585.3 Refinement 201 10/25/03 Elba Famichael RMA Chronic kidney disease, Stage III (moder [...] INJECTOR 33 units SC daily INSULIN GLARGINE 02286140835 Active Baltazar Childers MD Active TRAMADOL HCL 50 MG ORAL TABLET 1 twice a day as needed for pain TRAMADOL HCL 18042271439 No Longer Active Baltazar Childers MD Active ROBAXIN 500 MG ORAL TABLET Take 1.5 (one and one half) tabs once daily METHOCARBAMOL 07686604050 Active Baltazar Childers MD Active SYNTHROID 112 MCG ORAL TABLET Take one tablet a day LEVOTHYROXINE SODIUM 34222120216 Active Baltazar Childers MD Active TRUE METRIX AIR GLUCOSE METER DEVICE Use as directed BLOOD GLUCOSE MONITORING SUPPL 07258042843 Active Baltazar Childers MD Activ e TRUE METRIX BLOOD GLUCOSE TEST IN VITRO STRIP test blood sug ar BID Dx: E11.65 GLUCOSE BLOOD 37455219664 Active KENDALL Juarez Active NORTRIPTYLINE HCL 50 MG ORAL CAPSULE 1 twice a day for neuropathy 2 NORTRIPTYLINE HCL 65887143257 Active Baltazar Childers MD Acti ve ASPIRIN 81 MG TBEC Take one (1) tablet by mouth daily ASPIRIN 96127134406 Active Baltazar Childers MD Active GABAPENTIN 300 MG ORAL CAPSULE 1 three times a day 201 12/03/26 GABAPENTIN 00124625062 No Longer Active Baltazar Childers MD Activ e LISINOPRIL 20 MG ORAL TABLET 1 tablet by mouth daily at night 2016 LISINOPRIL 49404347291 Active Baltazar Childers MD Active ZITHROMAX Z-ISAIAS 250 MG ORAL TABLET Take two tablets to day and then 1 tablet daily for 4 days AZITHROMYCIN 45167336250 No Longer A ctive Baltazar Childers MD Active AMLODIPINE BESYLATE 5 MG ORAL TABLET 1 tab daily for HTN AMLODIPINE BESYLATE 05429606181 Active Baltazar Childers MD Active GLIPIZIDE 10 MG ORAL TABLET take 2 tablets twice daily GLIPIZIDE 80004459605 Active Baltazar Childers MD Active SUCRALFATE 1 GM ORAL TABLET 1 four times a day to coat the stoma ch SUCRALFATE 73084237234 No Longer Active Baltazar Childers MD Active PEN NEEDLES 31G X 6 MM use 1 daily INSULIN PEN NE EDLE 13382499675 Active KENDALL Juarez Active TOZULEIKA SOLOSTAR 300 UNIT/ML SUBCUTANEOUS SOLUTION PEN- INJECTOR 10 units SC daily INSULIN GLARGINE 46444465064 No Longer Active Rola ARGUETA Active NAPROXEN SODIUM 220 MG ORAL TABLET 1 three times a day as needed NAPROXEN SODIUM 67482263591 No Longer Active Baltazar Childers MD Active ATORVASTATIN CALCIUM 20 MG ORAL TABLET Take 1 tab daily ATORVASTATIN CALCIUM 59312575132 Active Baltazar Childers MD A ctive FUROSEMIDE 40 MG ORAL TABLET Take one by mouth daily FUROSEMIDE 14908676452 Active Baltazar Childers MD Active LISINOPRIL 20 MG ORAL TABLET Take one by mouth daily at bedtime LISINOPRIL 01128446575 No Longer Active Baltazar Childers MD Active ONETOUCH ULTRA BLUE IN VITRO STRIP Test twice a day 07/11/11 GLUCOSE BLOOD 14715553658 No Longer Active Baltazar Childers MD Acti ve TRUEPLUS LANCETS 33G Test twice a day LANCETS 1923413 8555 Active KENDALL Juarez Active TRUEDRAW LANCING DEVICE Test twice a day LANCET DEVICES 41969744918 Active Baltazar Childers MD Active TRUETRACK BLOOD GLUCOSE w/Device KIT Test twice a day BLOOD GLUCOSE MONITORING SUPPL 37427092546 Active Baltazar Childers MD Activ e HYDROCODONE-ACETAMINOPHEN 7.5-325 MG ORAL TABLET Take 1 tab every 6-8 hours PRN HYDROCODONE-ACETAMINOPHEN 07588248187 Active Baltazar Nickerson MD Active GABAPENTIN 300 MG ORAL CAPSULE 1 po qd x 2 days, then 1 po BID x 2 days, then 1 po TID GABAPENTIN 29714399243 No Longer Active Baltazar Childers MD Active NAPROXEN 500 MG ORAL TABLET 1 tablet by mouth twice daily NAPROXEN 65465720833 No Longer Active Baltazar Childers MD Active PROAIR HFA 108 (90 Base) MCG/ACT INHALATION AEROSOL SO LUTION 2 puffs four times a day as needed ALBUTEROL SULFATE 94046450882 Active Shun Arellano LPN Active DEPO-TESTOSTERONE 200 MG/ML INTRAMUSCULAR SOLUTION as directed TESTOSTERONE CYPIONATE 20144607604 No Longer Active Baltazar Childers MD Active LIPITOR 20 MG ORAL TABLET Take one by mouth daily in evening ATORVASTATIN CALCIUM 94690422839 No Longer Active Baltazar Childers MD Active CRESTOR 10 MG ORAL TABLET 1 by mouth every day ROSUVASTATIN CALCIUM 95471995218 No Longer Active Baltazar Childers MD Active PHENTERMINE HCL 37.5 MG ORAL TABLET Take one by mouth daily PHENTERMINE HCL 65947796312 No Longer Active Baltazar Childers MD Ac tive TIZANIDINE HCL 4 MG ORAL TABLET 1 daily as needed for muscle spa sm TIZANIDINE HCL 26978174360 No Longer Active Dawna Salazar RN Active [id number] 50-325-40 MG ORAL TABLET 1 fo ur times a day as needed for heacache [id number] 18511947799 Active Beth Carr, RMA Active SUMATRIPTAN SUCCINATE 100 MG ORAL TABLET 1 tablet by m outh at onset of migraine as needed SUMATRIPTAN SUCCINATE 47916043537 Active Baltazar Nickerson MD Active LORATADINE 10 MG ORAL TABLET Take one by mouth daily LORATADINE 76415386181 Active Baltazar Childers MD Active OMEPRAZOLE 20 MG ORAL CAPSULE DELAYED RELEASE Take one by mouth jostin ly OMEPRAZOLE 76485539070 Active Baltazar Childers MD Active HYDROXYZINE HCL 25 MG ORAL TABLET Take one by mouth daily HYDROXYZINE HCL 83224631138 Active Baltazar Childers MD Active ALPRAZOLAM 1 MG ORAL TABLET 1 tablet by mouth [facility] ALPRAZOLAM 45184641521 Active Baltazar Childers MD Active METFORMIN HCL 1000 MG ORAL TABLET Take one by mouth twice daily METFORMIN HCL 96244437306 Active Baltazar Childers MD Active TIZANIDINE HCL 4 MG ORAL TABLET 1 daily as needed for muscle spa sm TIZANIDINE HCL 4 MG ORAL TABLET 085527 TIZANIDINE HCL Inactive PHENTERMINE HCL 37.5 MG ORAL TABLET Take one by mouth daily PHENTERMINE HCL 37.5 MG ORAL TABLET 629109 PHENTERMINE HCL Inac tive CRESTOR 10 MG ORAL TABLET 1 by mouth every day CRESTOR 10 MG ORAL TABLET 685115 ROSUVASTATIN CALCIUM Inactive LIPITOR 20 MG ORAL TABLET Take one by mouth daily in evening LIPITOR 20 MG ORAL TABLET 713629 ATORVASTATIN CALCIUM Inactive DEPO-TESTOSTERONE 200 MG/ML INTRAMUSCULAR SOLUTION as directed DEPO-TESTOSTERONE 200 MG/ML INTRAMUSCULAR SOLUTION 2000504 RUFINO TOSTERONE CYPIONATE Inactive NAPROXEN 500 MG ORAL TABLET 1 tablet by mouth twice daily NAPROXEN 500 MG ORAL TABLET 924541 NAPROXEN Inactive GABAPENTIN 300 MG ORAL CAPSULE 1 po qd x 2 days, then 1 po BID x 2 days, then 1 po TID GABAPENTIN 300 MG ORAL CAPSULE 773721 GABAP ENTIN Inactive ONETOUCH ULTRA BLUE IN VITRO STRIP Test twice a day 07/11/11 ONETOUCH ULTRA BLUE IN VITRO STRIP GLUCOSE BLOOD Inact amie NAPROXEN SODIUM 220 MG ORAL TABLET 1 three times a day as needed NAPROXEN SODIUM 220 MG ORAL TABLET 845174 NAPROXEN SODI UM Inactive TOUJEO SOLOSTAR 300 UNIT/ML SUBCUTANEOUS SOLUTION PEN- INJECTOR 10 units SC daily TOUJEO SOLOSTAR 300 UNIT/ML SUBCUTANEOUS SOLUTION PEN-INJECTOR INSULIN GLARGINE Inactive SUCRALFATE 1 GM ORAL TABLET 1 four times a day to coat the stoma ch SUCRALFATE 1 GM ORAL TABLET 147789 SUCRALFATE Inac tive GABAPENTIN 300 MG ORAL CAPSULE 1 three times a day 201 12/03/26 GABAPENTIN 300 MG ORAL CAPSULE 123098 GABAPENTIN Inactive TRAMADOL HCL 50 MG ORAL TABLET 1 twice a day as needed for pain TRAMADOL HCL 50 MG ORAL TABLET 239858 TRAMADOL HCL I nactive ZITHROMAX Z-ISAIAS 250 MG ORAL TABLET Take two tablets to day and then 1 tablet daily for 4 days ZITHROMAX Z-ISAIAS 250 MG ORAL TAB LET 048859 AZITHROMYCIN Inactive Immunizations Vaccine Administration Date Value Standard Floyd cription influenza immunization (Flu Vax) has been administered 05/11 Done according to patient influenza virus vaccine, unspecified for mulation pneumococcal immunization administered Pneumovax 23 [CVX33] pneumococcal polysaccharide vaccine, 23 valent Seasonal influenza vaccine, injectable, containing preservative, for > 3 years old (Afluria, FluLaval, Fluzone, Fluvirin, Fluarix, Agriflu(>= 18 yo)) Fluzone (>3 yrs.) [[id number]] Influenza, seasonal, inject able Seasonal influenza vaccine, injectable, containing preservative, for > 3 years old (Afluria, FluLaval, Fluzone, Fluvirin, Fluarix, Agriflu(>= 18 yo)) Fluzone (>3 yrs.) [[id number]] Influenza, seasonal, inject able Vital Signs Date Name Value Unit Range Description blood pressure, diastolic, repeated by physician 75 [...] - Chem istry sodium, serum 139 mmol/L 209-901 3444/06/26 potassium, serum 4.8 mmol/L 3.5-5.2 chloride, serum 102 mmol/L 98-107 carbon dioxide, venous blood 29.1 mmol/L 21.0-32 .0 blood glucose 179 mg/dL 65-95 calcium, serum 9.7 mg/dL 8.5-10.1 urea nitrogen, blood 31 mg/dL 7-18 creatinine, serum 1.97 mg/dL 0.60-1.30 sodium, serum 136 mmol/L 556-064 4832/06/04 potassium, serum 4.9 mmol/L 3.5-5.2 chloride, serum [...] 0.40 mg/dL 0.00-1.00 cholesterol, serum 218 mg/dL 254-746 0784/12/18 triglyceride, serum, fasting 357 mg/dL 30-200 HDL cholesterol, serum 49 mg/dL 32-60 LDL cholesterol, serum 103.00 mg/dL 5.00-130.00 hemoglobin A1C, blood, as % of total hemoglobin 8.5 % 4.3-6.0 sodium, serum 142 mmol/L 504-513 4265/12/18 carbon dioxide, venous blood 32.5 mmol/L 21.0-32 [...] 0.36-3.74 Encounters Code Encounter Date Provider Facility CPT-82294 [id number] Vst-Est Level IV 15:14:58 CDT Charlie Childers MD [facility] CPT-81772 [id number] Vst-Est Level IV 15:12:52 FAMILY ASSISTANT Charlie Childers MD [facility] CPT-81762 [id number] Vst-Est Level IV 15:30:55 FAMILY ASSISTANT Charlie Childers MD [facility] CPT-41973 [id number] Vst-Est Level IV 13:49:06 C ELIOT Martinez PA-C [facility] CPT-29249 Level 4 Est. Patient 17:26:08 CDT Ann trujillo PA-C [facility] CPT-78069 [id number] Vst-Est Level V 14:26:27 CDT Aneudy Childers MD [facility]-89173 Level 4 Est. Patient 17:05:37 CDT Baltazar Childers MD [facility]-27858 Level 4 Est. Patient 16:21:19 FAMILY ASSISTANT Baltazar Childers MD [facility]-88073 Level 4 Est. Patient 12:25:11 CDT Baltazar Childers MD [facility]-52680 Level 4 Est. Patient 14:22:31 CDT Baltazar Childers MD [facility]-44541 Level 4 Est. Patient 15:44:38 CD[facility] Est[facility] Patient 11:34:17 CDT Baltazar Childers MD [facility]-20636 Level 3 Est. Patient 16:40:40 CDT Baltazar Childers MD [facility]-99447 Level 4 Est. Patient 10:41:24 CDT Baltazar Childers MD [facility]-84986 Level 4 Est. Patient 16:01:48 CDT Baltazar Childers MD [facility]-35464 Level 4 Est. Patient 16:54:07 FAMILY ASSISTANT Baltazar Childers MD [facility]-57630 Level 4 Est. Patient 15:42:12 CDT Baltazar Childers MD [facility]-69007 Level 4 Est. Patient 11:29:55 CDT Baltazar Childers MD [facility] CPT-73870 Level 4 Est. Patient 14:15:19 CDT Baltazar Childers MD [facility]-55895 Level 4 Est. Patient 12:20:13 CDT Baltazar Childers MD [facility]-73445 Level 4 Est. Patient 14:52:45 FAMILY ASSISTANT Baltazar Childers MD [facility] CPT-14778 Level 4 Est. Patient 14:18:34 FAMILY ASSISTANT Baltazar Childers MD [facility] CPT-34284 Level 4 Est. Patient 15:18:29 CDT Baltazar Childers MD [facility] CPT-68895 Level 3 Est. Patient 12:45:34 CDT Baltazar Childers MD [facility] CPT-22824 Level 3 Est. Patient 10:10:11 CDT Baltazar Childers MD [facility] CPT-17777 Level 3 Est. Patient 14:07:50 CDT Baltazar Childers MD [facility] CPT-35374 Level 4 Est. Patient 12:26:10 FAMILY ASSISTANT Baltazar Childers MD [facility] CPT-23649 Level 4 Est. Patient 14:45:38 CDT Baltazar Childers MD [facility] CPT-40995 Level 4 New Patient 12:30:48 CDT Baltazar hinton MD [facility] Procedures Code Procedure Name Date Entry Date Standard Desc ription CPT-000 Give Appropriate Flu Vaccine 12:25:14 CDT 2 CPT-70401 First Vx - Ix admin via ID I M or jet injects without counseling by physician 13:08:59 CDT CPT-97378 Fluzone Quadrivalent Intramuscular Suspe nsion 0.5 ML 13:08:59 CDT CPT-38791 Venipuncture Draw Fee 12:04:12 CDT CPT-31104 Lipid - LAB USE ONLY 17:39:15 FAMILY ASSISTANT 9 CPT-40286 HGBA1C - LAB USE ONLY 17:39:15 FAMILY ASSISTANT CPT-36210 CMP - LAB USE ONLY 17:39:14 FAMILY ASSISTANT CPT-75907 Venipuncture Draw Fee 17:39:14 FAMILY ASSISTANT CPT-42887 First Vx - Ix admin via ID I M or jet injects without counseling by physician 16:55:17 FAMILY ASSISTANT CPT-20254 Fluzone Quadrivalent Intramuscular Suspe nsion 0.5 ML 16:55:17 FAMILY ASSISTANT CPT-61222 Renal Panel - LAB USE ONLY 17:39:20 CDT 201 10/31/07 CPT-18942 CBC - LAB USE ONLY 17:39:20 CDT CPT-68312 Venipuncture Draw Fee 17:39:20 CDT CPT-57080 Venipuncture Draw Fee 14:33:30 CDT CPT-81459 Renal Panel - LAB USE ONLY 14:33:30 CDT 201 10/31/07 CPT-86872 CBC - LAB USE ONLY 14:33:29 CDT CPT-18397 Venipuncture Draw Fee 14:50:21 FAMILY ASSISTANT CPT-42298 Immunization Single Admin 17:35:35 CDT 2014 CPT-76521 Fluzone Quadrivalent preservative free ( >=3yrs.) 17:35:35 CDT CPT-59244 Venipuncture Draw Fee 12:10:27 FAMILY ASSISTANT CPT-94789 Fluzone Quadrivalent Intramuscular Suspe nsion 0.5 ML 10:49:13 CDT CPT-26040 First Vx Component - Ix admi n via ID IM or jet inj without physician counseling 15:17:19 FAMILY ASSISTANT CPT-74986 Pneumovax 23 15:17:19 FAMILY ASSISTANT CPT-84803 Pneumovax 14:52:45 FAMILY ASSISTANT CPT-92887 Venipuncture Draw Fee 14:06:30 FAMILY ASSISTANT CPT-000 Give Appropriate Flu Vaccine 14:18:34 FAMILY ASSISTANT 2 CPT-22800 Administration single or combination vac cine inc oral 14:46:00 FAMILY ASSISTANT CPT-92973 Influenza split virus > age 3 14:46:00 FAMILY ASSISTANT CPT-OV Office Visit 19:13:16 CDT CPT-45307 Zostavax 18:41:56 CDT CPT-54684 Administration single or combination vac cine inc oral 12:56:39 CDT CPT-60069 Zoster Vaccine (Zostavax) 12:56:39 CDT 2012 CPT-84409 Venipuncture Draw Fee 10:58:57 CDT CPT-61171 Sono pelvis non OB uterus ovaries cervix 17:45:04 CDT CPT-22450 Sono retroperitoneal complete kidneys an d bladder 17:14:36 CDT CPT-OV Office Visit 14:59:38 FAMILY ASSISTANT CPT-J1070 Depo Testosterone 100 mg 14:50:13 CDT 03/05 CPT-35735 Abx/Therapy Injection 14:50:13 CDT CPT-31064 Administration single or combination vac cine inc oral 14:34:43 CDT CPT-55961 Influenza split virus > age 3 14:34:43 CDT CPT-J1070 Depo Testosterone 100 mg 17:37:13 CDT 01/11 CPT-83360 Abx/Therapy Injection 17:37:13 CDT CPT-98431 Venipuncture Draw Fee 16:30:13 CDT CPT-84705 Venipuncture Draw Fee 16:29:43 CDT CPT-J1070 Depo Testosterone 100 mg 14:45:38 CDT 01/11
--- OUTSIDE RECORDS SUMMARY | 2019-10-27 11:42 | XMS REPORT | Clinical Summary ---
Author Author Admin, Elba Lance [facility] Address Unknown Phone Unavailable Allergies, Adverse Reactions, [...] in tervertebral disc ANXIETY 300.00 Active Baltazar Childres MD Anxiety state, unspecified RESTLESS LEG SYNDROME [...] ronary atherosclerosis of unspecified type of vessel, craig or graft OTH NONSPC ABN FINDNG RAD&OTH [...] TABLET 1 daily for diabetes SAXAGLIPTIN HCL 25151980400 Active Baltazar Childers MD Active LANTUS SOLOSTAR 100 UNIT/ML SUBCUTANEOUS SOLUTION PEN- INJECTOR 33 units SC daily INSULIN GLARGINE 72758537641 Active Baltazar Childers MD Active TRAMADOL HCL 50 MG ORAL TABLET 1 twice a day as needed for pain TRAMADOL HCL 90112293795 No Longer Active Baltazar Childers MD Active ROBAXIN 500 MG ORAL TABLET Take 1.5 (one and one half) tabs once daily METHOCARBAMOL 24661749276 Active Baltazar Childers MD Active SYNTHROID 112 MCG ORAL TABLET Take one tablet a day LEVOTHYROXINE SODIUM 89095126977 Active Baltazar Childers MD Active TRUE METRIX AIR GLUCOSE METER DEVICE Use as directed BLOOD GLUCOSE MONITORING SUPPL 39530597593 Active Baltazar Childers MD Activ e TRUE METRIX BLOOD GLUCOSE TEST IN VITRO STRIP test blood sug ar BID Dx: E11.65 GLUCOSE BLOOD 69511114186 Active KENDALL Juarez Active NORTRIPTYLINE HCL 50 MG ORAL CAPSULE 1 twice a day for neuropathy 2 NORTRIPTYLINE HCL 41754932353 Active Baltazar Childers MD Acti ve ASPIRIN 81 MG TBEC Take one (1) tablet by mouth daily ASPIRIN 19877766428 Active Baltazar Childers MD Active GABAPENTIN 300 MG ORAL CAPSULE 1 three times a day 201 12/03/26 GABAPENTIN 22073427575 No Longer Active Baltazar Childers MD Activ e LISINOPRIL 20 MG ORAL TABLET 1 tablet by mouth daily at night 2016 LISINOPRIL 48026981043 Active Baltazar Childers MD Active ZITHROMAX Z-ISAIAS 250 MG ORAL TABLET Take two tablets to day and then 1 tablet daily for 4 days AZITHROMYCIN 25114027024 No Longer A ctive Baltazar Childers MD Active AMLODIPINE BESYLATE 5 MG ORAL TABLET 1 tab daily for HTN AMLODIPINE BESYLATE 42205461095 Active Baltazar Childers MD Active GLIPIZIDE 10 MG ORAL TABLET take 2 tablets twice daily GLIPIZIDE 53760687705 Active Baltazar Childers MD Active SUCRALFATE 1 GM ORAL TABLET 1 four times a day to coat the stoma ch SUCRALFATE 80011590926 No Longer Active Baltazar Childers MD Active PEN NEEDLES 31G X 6 MM use 1 daily INSULIN PEN NE EDLE 19205752791 Active KENDALL Juarez Active TOUJEO SOLOSTAR 300 UNIT/ML SUBCUTANEOUS SOLUTION PEN- INJECTOR 10 units SC daily INSULIN GLARGINE 90669582629 No Longer Active Rola Godinez RMA Active NAPROXEN SODIUM 220 MG ORAL TABLET 1 three times a day as needed NAPROXEN SODIUM 02722815339 No Longer Active Baltazar Childers MD Active ATORVASTATIN CALCIUM 20 MG ORAL TABLET Take 1 tab daily ATORVASTATIN CALCIUM 69418318452 Active Baltazar Childers MD A ctive FUROSEMIDE 40 MG ORAL TABLET Take one by mouth daily FUROSEMIDE 69717999490 Active Baltazar Childers MD Active LISINOPRIL 20 MG ORAL TABLET Take one by mouth daily at bedtime LISINOPRIL 96959988921 No Longer Active Baltazar Childers MD Active ONETOUCH ULTRA BLUE IN VITRO STRIP Test twice a day 07/11/11 GLUCOSE BLOOD 04861466934 No Longer Active Baltazar Childres MD Acti ve TRUEPLUS LANCETS 33G Test twice a day LANCETS 4303580 3006 Active KENDALL Juarez Active TRUEDRAW LANCING DEVICE Test twice a day LANCET DEVICES 27082582635 Active Baltazar Childers MD Active TRUETRACK BLOOD GLUCOSE w/Device KIT Test twice a day BLOOD GLUCOSE MONITORING SUPPL 69441206504 Active Baltazar Childers MD Activ e HYDROCODONE-ACETAMINOPHEN 7.5-325 MG ORAL TABLET Take 1 tab every 6-8 hours PRN HYDROCODONE-ACETAMINOPHEN 53411279867 Active Baltazar Nickerson MD Active GABAPENTIN 300 MG ORAL CAPSULE 1 po qd x 2 days, then 1 po BID x 2 days, then 1 po TID GABAPENTIN 90077900306 No Longer Active Baltazar Childers MD Active NAPROXEN 500 MG ORAL TABLET 1 tablet by mouth twice daily NAPROXEN 38468754850 No Longer Active Baltazar Childers MD Active PROAIR HFA 108 (90 Base) MCG/ACT INHALATION AEROSOL SO LUTION 2 puffs four times a day as needed ALBUTEROL SULFATE 76924642643 Active Shun Arellano LPN Active DEPO-TESTOSTERONE 200 MG/ML INTRAMUSCULAR SOLUTION as directed TESTOSTERONE CYPIONATE 74792714584 No Longer Active Baltazar Childers MD Active LIPITOR 20 MG ORAL TABLET Take one by mouth daily in evening ATORVASTATIN CALCIUM 12098167746 No Longer Active Baltazar Childers MD Active CRESTOR 10 MG ORAL TABLET 1 by mouth every day ROSUVASTATIN CALCIUM 40786305161 No Longer Active Baltazar Childers MD Active PHENTERMINE HCL 37.5 MG ORAL TABLET Take one by mouth daily PHENTERMINE HCL 04102085298 No Longer Active Baltazar Childers MD Ac tive TIZANIDINE HCL 4 MG ORAL TABLET 1 daily as needed for muscle spa sm TIZANIDINE HCL 25556099523 No Longer Active Dawna Salazar RN Active [id number] 50-325-40 MG ORAL TABLET 1 fo ur times a day as needed for heacache [id number] 78893732952 Active KENDALL Juarez Active SUMATRIPTAN SUCCINATE 100 MG ORAL TABLET 1 tablet by m outh at onset of migraine as needed SUMATRIPTAN SUCCINATE 88464225249 Active Baltazar Nickerson MD Active LORATADINE 10 MG ORAL TABLET Take one by mouth daily LORATADINE 67289957746 Active Baltazar Childers MD Active OMEPRAZOLE 20 MG ORAL CAPSULE DELAYED RELEASE Take one by mouth jostin ly OMEPRAZOLE 68881925780 Active Baltazar Childers MD Active HYDROXYZINE HCL 25 MG ORAL TABLET Take one by mouth daily HYDROXYZINE HCL 49207343701 Active Baltazar Childers MD Active ALPRAZOLAM 1 MG ORAL TABLET 1 tablet by mouth daily at bedti me for restless leg ALPRAZOLAM 42058599073 Active Baltazar Childers MD Active METFORMIN HCL 1000 MG ORAL TABLET Take one by mouth twice daily METFORMIN HCL 57183802000 Active Baltazar Childers MD Active TIZANIDINE HCL 4 MG ORAL TABLET 1 daily as needed for muscle spa sm TIZANIDINE HCL 4 MG ORAL TABLET 651825 TIZANIDINE HCL Inactive PHENTERMINE HCL 37.5 MG ORAL TABLET Take one by mouth daily PHENTERMINE HCL 37.5 MG ORAL TABLET 444564 PHENTERMINE HCL Inac tive CRESTOR 10 MG ORAL TABLET 1 by mouth every day CRESTOR 10 MG ORAL TABLET 363873 ROSUVASTATIN CALCIUM Inactive LIPITOR 20 MG ORAL TABLET Take one by mouth daily in evening LIPITOR 20 MG ORAL TABLET 491430 ATORVASTATIN CALCIUM Inactive DEPO-TESTOSTERONE 200 MG/ML INTRAMUSCULAR SOLUTION as directed DEPO-TESTOSTERONE 200 MG/ML INTRAMUSCULAR SOLUTION 1352951 RUFINO TOSTERONE CYPIONATE Inactive NAPROXEN 500 MG ORAL TABLET 1 tablet by mouth twice daily NAPROXEN 500 MG ORAL TABLET 837569 NAPROXEN Inactive GABAPENTIN 300 MG ORAL CAPSULE 1 po qd x 2 days, then 1 po BID x 2 days, then 1 po TID GABAPENTIN 300 MG ORAL CAPSULE 386355 GABAP ENTIN Inactive ONETOUCH ULTRA BLUE IN VITRO STRIP Test twice a day 07/11/11 ONETOUCH ULTRA BLUE IN VITRO STRIP GLUCOSE BLOOD Inact amie NAPROXEN SODIUM 220 MG ORAL TABLET 1 three times a day as needed NAPROXEN SODIUM 220 MG ORAL TABLET 962940 NAPROXEN SODI UM Inactive TOUJEO SOLOSTAR 300 UNIT/ML SUBCUTANEOUS SOLUTION PEN- INJECTOR 10 units SC daily TOUJEO SOLOSTAR 300 UNIT/ML SUBCUTANEOUS SOLUTION PEN-INJECTOR INSULIN GLARGINE Inactive SUCRALFATE 1 GM ORAL TABLET 1 four times a day to coat the stoma ch SUCRALFATE 1 GM ORAL TABLET 877774 SUCRALFATE Inac tive GABAPENTIN 300 MG ORAL CAPSULE 1 three times a day 201 12/03/26 GABAPENTIN 300 MG ORAL CAPSULE 297441 GABAPENTIN Inactive TRAMADOL HCL 50 MG ORAL TABLET 1 twice a day as needed for pain TRAMADOL HCL 50 MG ORAL TABLET 632066 TRAMADOL HCL I nactive ZITHROMAX Z-ISAIAS 250 MG ORAL TABLET Take two tablets to day and then 1 tablet daily for 4 days ZITHROMAX Z-ISAIAS 250 MG ORAL TAB LET 148240 AZITHROMYCIN Inactive Immunizations Vaccine Administration Date Value Standard Floyd cription influenza immunization (Flu Vax) has been administered 05/11 Done according to patient influenza virus vaccine, unspecified for mulation pneumococcal immunization administered Pneumovax 23 [CVX33] pneumococcal polysaccharide vaccine, 23 valent Seasonal influenza vaccine, injectable, containing preservative, for > 3 years old (Afluria, FluLaval, Fluzone, Fluvirin, Fluarix, Agriflu(>= 18 yo)) Fluzone (>3 yrs.) [FUO530] Influenza, seasonal, inject able Seasonal influenza vaccine, injectable, containing preservative, for > 3 years old (Afluria, FluLaval, Fluzone, Fluvirin, Fluarix, Agriflu(>= 18 yo)) Fluzone (>3 yrs.) [YUC380] Influenza, seasonal, inject able Vital Signs Date [...] - Chem istry sodium, serum 139 mmol/L 800-365 1969/06/26 potassium, serum 4.8 mmol/L 3.5-5.2 chloride, serum 102 mmol/L 98-107 carbon dioxide, venous blood 29.1 mmol/L 21.0-32 .0 blood glucose 179 mg/dL 65-95 calcium, serum 9.7 mg/dL 8.5-10.1 urea nitrogen, blood 31 mg/dL 7-18 creatinine, serum 1.97 mg/dL 0.60-1.30 sodium, serum 136 mmol/L 650-017 2136/06/04 potassium, serum 4.9 mmol/L 3.5-5.2 chloride, serum [...] 0.40 mg/dL 0.00-1.00 cholesterol, serum 218 mg/dL 344-841 3401/12/18 triglyceride, serum, fasting 357 mg/dL 30-200 HDL cholesterol, serum 49 mg/dL 32-60 LDL cholesterol, serum 103.00 mg/dL 5.00-130.00 hemoglobin A1C, blood, as % of total hemoglobin 8.5 % 4.3-6.0 sodium, serum 142 mmol/L 447-129 1919/12/18 carbon dioxide, venous blood 32.5 mmol/L 21.0-32 [...] 0.36-3.74 Encounters Code Encounter Date Provider Facility CPT-37169 [id number] Vst-Est Level III 15:51:57 CDT Baltazar Childers MD [facility]-72948 [id number] Vst-Est Level IV 15:14:58 CDT Charlie Childers MD [facility]-11058 [id number] Vst-Est Level IV 15:12:52 VTC TECHNICIAN Charlie Childers MD [facility]-75377 [id number] Vst-Est Level IV 15:30:55 VTC TECHNICIAN Charlie Childers MD [facility]-83102 [id number] Vst-Est Level IV 13:49:06 C DT Ann Martinez [facility] CPT-87606 Level 4 Est. Patient 17:26:08 CDT Ann trujillo [facility]-17931 [id number] Vst-Est Level V 14:26:27 CDT Aneudy Childers MD [facility] CPT-69218 Level 4 Est. Patient 17:05:37 CDT Baltazar Childers MD [facility] CPT-14960 Level 4 Est. Patient 16:21:19 VTC TECHNICIAN Baltazar Childers MD [facility] CPT-05178 Level 4 Est. Patient 12:25:11 CDT Baltazar Childers MD [facility] CPT-56615 Level 4 Est. Patient 14:22:31 CDT Baltazar Childers MD [facility] CPT-76372 Level 4 Est. Patient 15:44:38 CDT Shonna Parker APRN [facility] CPT-79133 Level 4 Est. Patient 11:34:17 CDT Baltazar Childers MD [facility]-67529 Level 3 Est. Patient 16:40:40 CDT Baltazar Childers MD [facility]-81666 Level 4 Est. Patient 10:41:24 CDT Baltazar Childers MD [facility]-60911 Level 4 Est. Patient 16:01:48 CDT Baltazar Childers MD [facility]-55059 Level 4 Est. Patient 16:54:07 VTC TECHNICIAN Baltazar Childers MD [facility]-22599 Level 4 Est. Patient 15:42:12 CDT Baltazar Childers MD [facility] CPT-78945 Level 4 Est. Patient 11:29:55 CDT Baltazar Childers MD [facility]-90942 Level 4 Est. Patient 14:15:19 CDT Baltazar Childers MD [facility]-71300 Level 4 Est. Patient 12:20:13 CDT Baltazar Childers MD [facility] CPT-11760 Level 4 Est. Patient 14:52:45 VTC TECHNICIAN Baltazar Childers MD [facility]-45561 Level 4 Est. Patient 14:18:34 VTC TECHNICIAN Baltazar Childers MD [facility] CPT-18493 Level 4 Est. Patient 15:18:29 CDT Baltazar Childers MD [facility]-06150 Level 3 Est. Patient 12:45:34 CDT Baltazar Childers MD [facility] CPT-79358 Level 3 Est. Patient 10:10:11 CDT Baltazar Childers MD [facility]-75854 Level 3 Est. Patient 14:07:50 CDT Baltazar Childers MD [facility]-75755 Level 4 Est. Patient 12:26:10 VTC TECHNICIAN Baltazar Childers MD [facility]-00857 Level 4 Est. Patient 14:45:38 CDT Baltazar Childers MD [facility] CPT-75384 Level 4 New Patient 12:30:48 CDT Baltazar hinton MD [facility] Procedures Code Procedure Name Date Entry Date Standard Desc ription CPT-000 Give Appropriate Flu Vaccine 12:25:14 CDT 2 CPT-26291 First Vx - Ix admin via ID I M or jet injects without counseling by physician 13:08:59 CDT CPT-71805 Fluzone Quadrivalent Intramuscular Suspe nsion 0.5 ML 13:08:59 CDT CPT-02418 Venipuncture Draw Fee 12:04:12 CDT CPT-01085 Lipid - LAB USE ONLY 17:39:15 VTC TECHNICIAN 9 CPT-54055 HGBA1C - LAB USE ONLY 17:39:15 VTC TECHNICIAN CPT-07480 CMP - LAB USE ONLY 17:39:14 VTC TECHNICIAN CPT-10488 Venipuncture Draw Fee 17:39:14 VTC TECHNICIAN CPT-96266 First Vx - Ix admin via ID I M or jet injects without counseling by physician 16:55:17 VTC TECHNICIAN CPT-84703 Fluzone Quadrivalent Intramuscular Suspe nsion 0.5 ML 16:55:17 VTC TECHNICIAN CPT-49115 Renal Panel - LAB USE ONLY 17:39:20 CDT 201 10/31/07 CPT-39147 CBC - LAB USE ONLY 17:39:20 CDT CPT-59215 Venipuncture Draw Fee 17:39:20 CDT CPT-89125 Venipuncture Draw Fee 14:33:30 CDT CPT-84960 Renal Panel - LAB USE ONLY 14:33:30 CDT 201 10/31/07 CPT-17415 CBC - LAB USE ONLY 14:33:29 CDT CPT-99700 Venipuncture Draw Fee 14:50:21 VTC TECHNICIAN CPT-48232 Immunization Single Admin 17:35:35 CDT 2014 CPT-07807 Fluzone Quadrivalent preservative free ( >=3yrs.) 17:35:35 CDT CPT-28956 Venipuncture Draw Fee 12:10:27 VTC TECHNICIAN CPT-49052 Fluzone Quadrivalent Intramuscular Suspe nsion 0.5 ML 10:49:13 CDT CPT-36458 First Vx Component - Ix admi n via ID IM or jet inj without physician counseling 15:17:19 VTC TECHNICIAN CPT-05695 Pneumovax 23 15:17:19 VTC TECHNICIAN CPT-31469 Pneumovax 14:52:45 VTC TECHNICIAN CPT-31504 Venipuncture Draw Fee 14:06:30 VTC TECHNICIAN CPT-000 Give Appropriate Flu Vaccine 14:18:34 VTC TECHNICIAN 2 CPT-13886 Administration single or combination vac cine inc oral 14:46:00 VTC TECHNICIAN CPT-66813 Influenza split virus > age 3 14:46:00 VTC TECHNICIAN CPT-OV Office Visit 19:13:16 CDT CPT-70657 Zostavax 18:41:56 CDT CPT-55631 Administration single or combination vac cine inc oral 12:56:39 CDT CPT-23427 Zoster Vaccine (Zostavax) 12:56:39 CDT 2012 CPT-62753 Venipuncture Draw Fee 10:58:57 CDT CPT-16001 Sono pelvis non OB uterus ovaries cervix 17:45:04 CDT CPT-37037 Sono retroperitoneal complete kidneys an d bladder 17:14:36 CDT CPT-OV Office Visit 14:59:38 VTC TECHNICIAN CPT-J1070 Depo Testosterone 100 mg 14:50:13 CDT 03/05 CPT-48967 Abx/Therapy Injection 14:50:13 CDT CPT-91402 Administration single or combination vac cine inc oral 14:34:43 CDT CPT-52120 Influenza split virus > age 3 14:34:43 CDT CPT-J1070 Depo Testosterone 100 mg 17:37:13 CDT 01/11 CPT-81561 Abx/Therapy Injection 17:37:13 CDT CPT-49349 Venipuncture Draw Fee 16:30:13 CDT CPT-18857 Venipuncture Draw Fee 16:29:43 CDT CPT-J1070 Depo Testosterone 100 mg 14:45:38 CDT 01/11
--- OUTSIDE RECORDS SUMMARY | 2019-10-27 11:42 | XMS REPORT | Clinical Summary ---
Author Author Admin, Elba Lance Doblet Address Unknown Phone Unavailable Allergies, Adverse Reactions, [...] Benign essential hypertension EDEMA 782.3 Active Baltazar hCilders MD Edema ALLERGIC RHINITIS 477.9 Active Baltazar [...] ronary atherosclerosis of unspecified type of vessel, [place] or graft OTH NONSPC ABN FINDNG RAD&OTH [...] INJECTOR 33 units SC daily INSULIN GLARGINE 42602247083 Active Baltazar Childers MD Active TRAMADOL HCL 50 MG ORAL TABLET 1 twice a day as needed for pain TRAMADOL HCL 47592021928 No Longer Active Baltazar Childers MD Active ROBAXIN 500 MG ORAL TABLET Take 1.5 (one and one half) tabs once daily METHOCARBAMOL 10504420804 Active Baltazar Childers MD Active SYNTHROID 112 MCG ORAL TABLET Take one tablet a day LEVOTHYROXINE SODIUM 49745699764 Active Baltazar Childers MD Active TRUE METRIX AIR GLUCOSE METER DEVICE Use as directed BLOOD GLUCOSE MONITORING SUPPL 91643822076 Active Baltazar Childers MD Activ e TRUE METRIX BLOOD GLUCOSE TEST IN VITRO STRIP test blood sug ar BID Dx: E11.65 GLUCOSE BLOOD 08177262424 Active KENDALL Juarez Active NORTRIPTYLINE HCL 50 MG ORAL CAPSULE 1 twice a day for neuropathy 2 NORTRIPTYLINE HCL 81909863033 Active Baltazar Childers MD Acti ve ASPIRIN 81 MG TBEC Take one (1) tablet by mouth daily ASPIRIN 30167645776 Active Baltazar Childers MD Active GABAPENTIN 300 MG ORAL CAPSULE 1 three times a day 201 12/03/26 GABAPENTIN 87274463961 No Longer Active Baltazar Childers MD Activ e LISINOPRIL 20 MG ORAL TABLET 1 tablet by mouth daily at night 2016 LISINOPRIL 53123558952 Active Baltazar Childers MD Active ZITHROMAX Z-ISAIAS 250 MG ORAL TABLET Take two tablets to day and then 1 tablet daily for 4 days AZITHROMYCIN 78330597377 No Longer A ctive Baltazar Childers MD Active AMLODIPINE BESYLATE 5 MG ORAL TABLET 1 tab daily for HTN AMLODIPINE BESYLATE 88539780135 Active Baltazar Childers MD Active GLIPIZIDE 10 MG ORAL TABLET take 2 tablets twice daily GLIPIZIDE 10502850915 Active Baltazar Childers MD Active SUCRALFATE 1 GM ORAL TABLET 1 four times a day to coat the stoma ch SUCRALFATE 11111668499 No Longer Active Baltazar Childers MD Active PEN NEEDLES 31G X 6 MM use 1 daily INSULIN PEN NE EDLE 47527704523 Active KENDALL Juarez Active TOZULEIKA SOLOSTAR 300 UNIT/ML SUBCUTANEOUS SOLUTION PEN- INJECTOR 10 units SC daily INSULIN GLARGINE 97869365843 No Longer Active Rola ARGUETA Active NAPROXEN SODIUM 220 MG ORAL TABLET 1 three times a day as needed NAPROXEN SODIUM 60759433529 No Longer Active Baltazar Childers MD Active ATORVASTATIN CALCIUM 20 MG ORAL TABLET Take 1 tab daily ATORVASTATIN CALCIUM 58046299288 Active Baltazar Childers MD A ctive FUROSEMIDE 40 MG ORAL TABLET Take one by mouth daily FUROSEMIDE 39321501045 Active Baltazar Childers MD Active LISINOPRIL 20 MG ORAL TABLET Take one by mouth daily at bedtime LISINOPRIL 53477036068 No Longer Active Baltazar Childers MD Active ONETOUCH ULTRA BLUE IN VITRO STRIP Test twice a day 07/11/11 GLUCOSE BLOOD 14754145457 No Longer Active Baltazar Childers MD Acti ve TRUEPLUS LANCETS 33G Test twice a day LANCETS 1733546 8504 Active KENDALL Juarez Active TRUEDRAW LANCING DEVICE Test twice a day LANCET DEVICES 63214093905 Active Baltazar Childers MD Active TRUETRACK BLOOD GLUCOSE w/Device KIT Test twice a day BLOOD GLUCOSE MONITORING SUPPL 57777196299 Active Baltazar Childers MD Activ e HYDROCODONE-ACETAMINOPHEN 7.5-325 MG ORAL TABLET Take 1 tab every 6-8 hours PRN HYDROCODONE-ACETAMINOPHEN 18676486694 Active Baltazar Nickerson MD Active GABAPENTIN 300 MG ORAL CAPSULE 1 po qd x 2 days, then 1 po BID x 2 days, then 1 po TID GABAPENTIN 13479748495 No Longer Active Baltazar Childers MD Active NAPROXEN 500 MG ORAL TABLET 1 tablet by mouth twice daily NAPROXEN 41616413000 No Longer Active Baltazar Childers MD Active PROAIR HFA 108 (90 Base) MCG/ACT INHALATION AEROSOL SO LUTION 2 puffs four times a day as needed ALBUTEROL SULFATE 11969994309 Active Shun Arellano LPN Active DEPO-TESTOSTERONE 200 MG/ML INTRAMUSCULAR SOLUTION as directed TESTOSTERONE CYPIONATE 61908719797 No Longer Active Baltazar Childers MD Active LIPITOR 20 MG ORAL TABLET Take one by mouth daily in evening ATORVASTATIN CALCIUM 52328808106 No Longer Active Baltazar Childers MD Active CRESTOR 10 MG ORAL TABLET 1 by mouth every day ROSUVASTATIN CALCIUM 44858708345 No Longer Active Baltazar Childers MD Active PHENTERMINE HCL 37.5 MG ORAL TABLET Take one by mouth daily PHENTERMINE HCL 51915674008 No Longer Active Baltazar Childers MD Ac tive TIZANIDINE HCL 4 MG ORAL TABLET 1 daily as needed for muscle spa sm TIZANIDINE HCL 99086738651 No Longer Active Dawna Salazar RN Active [id number] 50-325-40 MG ORAL TABLET 1 fo ur times a day as needed for heacache [id number] 69052669278 Active Beth Carr, RMA Active SUMATRIPTAN SUCCINATE 100 MG ORAL TABLET 1 tablet by m outh at onset of migraine as needed SUMATRIPTAN SUCCINATE 69618308950 Active Baltazar Nickerson MD Active LORATADINE 10 MG ORAL TABLET Take one by mouth daily LORATADINE 94170211662 Active Baltazar Childers MD Active OMEPRAZOLE 20 MG ORAL CAPSULE DELAYED RELEASE Take one by mouth jostin ly OMEPRAZOLE 10120661854 Active Baltazar Childers MD Active HYDROXYZINE HCL 25 MG ORAL TABLET Take one by mouth daily HYDROXYZINE HCL 48680500633 Active Baltazar Childers MD Active ALPRAZOLAM 1 MG ORAL TABLET 1 tablet by mouth daily at [facility] ALPRAZOLAM 35420943086 Active Baltazar Childers MD Active METFORMIN HCL 1000 MG ORAL TABLET Take one by mouth twice daily METFORMIN HCL 79572595083 Active Baltazar Childers MD Active TIZANIDINE HCL 4 MG ORAL TABLET 1 daily as needed for muscle spa sm TIZANIDINE HCL 4 MG ORAL TABLET 911647 TIZANIDINE HCL Inactive PHENTERMINE HCL 37.5 MG ORAL TABLET Take one by mouth daily PHENTERMINE HCL 37.5 MG ORAL TABLET 233807 PHENTERMINE HCL Inac tive CRESTOR 10 MG ORAL TABLET 1 by mouth every day CRESTOR 10 MG ORAL TABLET 779960 ROSUVASTATIN CALCIUM Inactive LIPITOR 20 MG ORAL TABLET Take one by mouth daily in evening LIPITOR 20 MG ORAL TABLET 331850 ATORVASTATIN CALCIUM Inactive DEPO-TESTOSTERONE 200 MG/ML INTRAMUSCULAR SOLUTION as directed DEPO-TESTOSTERONE 200 MG/ML INTRAMUSCULAR SOLUTION 6351569 RUFINO TOSTERONE CYPIONATE Inactive NAPROXEN 500 MG ORAL TABLET 1 tablet by mouth twice daily NAPROXEN 500 MG ORAL TABLET 097599 NAPROXEN Inactive GABAPENTIN 300 MG ORAL CAPSULE 1 po qd x 2 days, then 1 po BID x 2 days, then 1 po TID GABAPENTIN 300 MG ORAL CAPSULE 839119 GABAP ENTIN Inactive ONETOUCH ULTRA BLUE IN VITRO STRIP Test twice a day 07/11/11 ONETOUCH ULTRA BLUE IN VITRO STRIP GLUCOSE BLOOD Inact amie NAPROXEN SODIUM 220 MG ORAL TABLET 1 three times a day as needed NAPROXEN SODIUM 220 MG ORAL TABLET 411396 NAPROXEN SODI UM Inactive TOUJEO SOLOSTAR 300 UNIT/ML SUBCUTANEOUS SOLUTION PEN- INJECTOR 10 units SC daily TOUJEO SOLOSTAR 300 UNIT/ML SUBCUTANEOUS SOLUTION PEN-INJECTOR INSULIN GLARGINE Inactive SUCRALFATE 1 GM ORAL TABLET 1 four times a day to coat the stoma ch SUCRALFATE 1 GM ORAL TABLET 870796 SUCRALFATE Inac tive GABAPENTIN 300 MG ORAL CAPSULE 1 three times a day 201 12/03/26 GABAPENTIN 300 MG ORAL CAPSULE 472946 GABAPENTIN Inactive TRAMADOL HCL 50 MG ORAL TABLET 1 twice a day as needed for pain TRAMADOL HCL 50 MG ORAL TABLET 104416 TRAMADOL HCL I nactive ZITHROMAX Z-ISAIAS 250 MG ORAL TABLET Take two tablets to day and then 1 tablet daily for 4 days ZITHROMAX Z-ISAIAS 250 MG ORAL TAB LET 893270 AZITHROMYCIN Inactive Immunizations Vaccine Administration Date Value Standard Floyd cription influenza immunization (Flu Vax) has been administered 05/11 Done according to patient influenza virus vaccine, unspecified for mulation pneumococcal immunization administered Pneumovax 23 [CVX33] pneumococcal polysaccharide vaccine, 23 valent Seasonal influenza vaccine, injectable, containing preservative, for > 3 years old (Afluria, FluLaval, Fluzone, Fluvirin, Fluarix, Agriflu(>= 18 yo)) Fluzone (>3 yrs.) [[id number]] Influenza, seasonal, inject able Seasonal influenza vaccine, injectable, containing preservative, for > 3 years old (Afluria, FluLaval, Fluzone, Fluvirin, Fluarix, Agriflu(>= 18 yo)) Fluzone (>3 yrs.) [EUM179] Influenza, seasonal, inject able Vital Signs Date [...] - Chem istry sodium, serum 139 mmol/L 347-248 8818/06/26 potassium, serum 4.8 mmol/L 3.5-5.2 chloride, serum 102 mmol/L 98-107 carbon dioxide, venous blood 29.1 mmol/L 21.0-32 .0 blood glucose 179 mg/dL 65-95 calcium, serum 9.7 mg/dL 8.5-10.1 urea nitrogen, blood 31 mg/dL 7-18 creatinine, serum 1.97 mg/dL 0.60-1.30 sodium, serum 136 mmol/L 259-533 7839/06/04 potassium, serum 4.9 mmol/L 3.5-5.2 chloride, serum [...] 0.40 mg/dL 0.00-1.00 cholesterol, serum 218 mg/dL 081-625 9796/12/18 triglyceride, serum, fasting 357 mg/dL 30-200 HDL cholesterol, serum 49 mg/dL 32-60 LDL cholesterol, serum 103.00 mg/dL 5.00-130.00 hemoglobin A1C, blood, as % of total hemoglobin 8.5 % 4.3-6.0 sodium, serum 142 mmol/L 193-187 8253/12/18 carbon dioxide, venous blood 32.5 mmol/L 21.0-32 [...] 0.36-3.74 Encounters Code Encounter Date Provider Facility CPT-27518 [id number] Vst-Est Level IV 15:14:58 CDT Charlie Childers MD [facility] CPT-69792 [id number] Vst-Est Level IV 15:12:52 IN SERVICE EDUCATION TEACHER Charlie Childers MD [facility] CPT-79113 [id number] Vst-Est Level IV 15:30:55 IN SERVICE EDUCATION TEACHER Charlie Childers MD [facility] CPT-38244 [id number] Vst-Est Level IV 13:49:06 C ELIOT Martinez PA-C [facility] CPT-83207 Level 4 Est. Patient 17:26:08 CDT Ann trujillo PA-C [facility] CPT-54533 54002-Uiz Vst-Est Level V 14:26:27 CDT Aneuyd Childers MD [facility]-88521 Level 4 Est. Patient 17:05:37 CDT Baltazar Childers MD [facility]-44225 Level 4 Est. Patient 16:21:19 IN SERVICE EDUCATION TEACHER Baltazar Childers MD [facility]-78333 Level 4 Est. Patient 12:25:11 CDT Baltazar Childers MD [facility]-11404 Level 4 Est. Patient 14:22:31 CDT Baltazar Childers MD [facility]-97510 Level 4 Est. Patient 15:44:38 [facility] Patient 11:34:17 CDT Baltazar Childers MD [facility]-48815 Level 3 Est. Patient 16:40:40 CDT Baltazar Childers MD [facility]-73479 Level 4 Est. Patient 10:41:24 CDT Baltazar Childers MD [facility]-48699 Level 4 Est. Patient 16:01:48 CDT Baltazar Childers MD [facility]-80086 Level 4 Est. Patient 16:54:07 IN SERVICE EDUCATION TEACHER Baltazar Childers MD [facility]-16794 Level 4 Est. Patient 15:42:12 CDT Baltazar Childers MD [facility]-31205 Level 4 Est. Patient 11:29:55 CDT Baltazar Childers MD [facility] CPT-28534 Level 4 Est. Patient 14:15:19 CDT Baltazar Childers MD [facility]-99916 Level 4 Est. Patient 12:20:13 CDT Baltazar Childers MD [facility]-57255 Level 4 Est. Patient 14:52:45 IN SERVICE EDUCATION TEACHER Baltazar Childers MD [facility] CPT-43346 Level 4 Est. Patient 14:18:34 IN SERVICE EDUCATION TEACHER Baltazar Childers MD [facility] CPT-87385 Level 4 Est. Patient 15:18:29 CDT Baltazar Childers MD [facility] CPT-26202 Level 3 Est. Patient 12:45:34 CDT Baltazar Childers MD [facility] CPT-07698 Level 3 Est. Patient 10:10:11 CDT Baltazar Childers MD [facility] CPT-04485 Level 3 Est. Patient 14:07:50 CDT Baltazar Childers MD [facility] CPT-47556 Level 4 Est. Patient 12:26:10 IN SERVICE EDUCATION TEACHER Baltazar Childers MD [facility] CPT-67774 Level 4 Est. Patient 14:45:38 CDT Baltazar Childers MD [facility] CPT-15514 Level 4 New Patient 12:30:48 CDT Baltazar hinton MD [facility] Procedures Code Procedure Name Date Entry Date Standard Desc ription CPT-000 Give Appropriate Flu Vaccine 12:25:14 CDT 2 CPT-08138 First Vx - Ix admin via ID I M or jet injects without counseling by physician 13:08:59 CDT CPT-23320 Fluzone Quadrivalent Intramuscular Suspe nsion 0.5 ML 13:08:59 CDT CPT-34758 Venipuncture Draw Fee 12:04:12 CDT CPT-58105 Lipid - LAB USE ONLY 17:39:15 IN SERVICE EDUCATION TEACHER 9 CPT-84901 HGBA1C - LAB USE ONLY 17:39:15 IN SERVICE EDUCATION TEACHER CPT-21561 CMP - LAB USE ONLY 17:39:14 IN SERVICE EDUCATION TEACHER CPT-20725 Venipuncture Draw Fee 17:39:14 IN SERVICE EDUCATION TEACHER CPT-11513 First Vx - Ix admin via ID I M or jet injects without counseling by physician 16:55:17 IN SERVICE EDUCATION TEACHER CPT-56311 Fluzone Quadrivalent Intramuscular Suspe nsion 0.5 ML 16:55:17 IN SERVICE EDUCATION TEACHER CPT-64314 Renal Panel - LAB USE ONLY 17:39:20 CDT 201 10/31/07 CPT-98137 CBC - LAB USE ONLY 17:39:20 CDT CPT-46146 Venipuncture Draw Fee 17:39:20 CDT CPT-76538 Venipuncture Draw Fee 14:33:30 CDT CPT-32946 Renal Panel - LAB USE ONLY 14:33:30 CDT 201 10/31/07 CPT-33483 CBC - LAB USE ONLY 14:33:29 CDT CPT-92702 Venipuncture Draw Fee 14:50:21 IN SERVICE EDUCATION TEACHER CPT-91313 Immunization Single Admin 17:35:35 CDT 2014 CPT-58321 Fluzone Quadrivalent preservative free ( >=3yrs.) 17:35:35 CDT CPT-82454 Venipuncture Draw Fee 12:10:27 IN SERVICE EDUCATION TEACHER CPT-63322 Fluzone Quadrivalent Intramuscular Suspe nsion 0.5 ML 10:49:13 CDT CPT-99546 First Vx Component - Ix admi n via ID IM or jet inj without physician counseling 15:17:19 IN SERVICE EDUCATION TEACHER CPT-18802 Pneumovax 23 15:17:19 IN SERVICE EDUCATION TEACHER CPT-83049 Pneumovax 14:52:45 IN SERVICE EDUCATION TEACHER CPT-15548 Venipuncture Draw Fee 14:06:30 IN SERVICE EDUCATION TEACHER CPT-000 Give Appropriate Flu Vaccine 14:18:34 IN SERVICE EDUCATION TEACHER 2 CPT-55841 Administration single or combination vac cine inc oral 14:46:00 IN SERVICE EDUCATION TEACHER CPT-20312 Influenza split virus > age 3 14:46:00 IN SERVICE EDUCATION TEACHER CPT-OV Office Visit 19:13:16 CDT CPT-29577 Zostavax 18:41:56 CDT CPT-77467 Administration single or combination vac cine inc oral 12:56:39 CDT CPT-61736 Zoster Vaccine (Zostavax) 12:56:39 CDT 2012 CPT-66633 Venipuncture Draw Fee 10:58:57 CDT CPT-12790 Sono pelvis non OB uterus ovaries cervix 17:45:04 CDT CPT-08517 Sono retroperitoneal complete kidneys an d bladder 17:14:36 CDT CPT-OV Office Visit 14:59:38 IN SERVICE EDUCATION TEACHER CPT-J1070 Depo Testosterone 100 mg 14:50:13 CDT 03/05 CPT-84232 Abx/Therapy Injection 14:50:13 CDT CPT-45430 Administration single or combination vac cine inc oral 14:34:43 CDT CPT-44389 Influenza split virus > age 3 14:34:43 CDT CPT-J1070 Depo Testosterone 100 mg 17:37:13 CDT 01/11 CPT-38268 Abx/Therapy Injection 17:37:13 CDT CPT-39465 Venipuncture Draw Fee 16:30:13 CDT CPT-47642 Venipuncture Draw Fee 16:29:43 CDT CPT-J1070 Depo Testosterone 100 mg 14:45:38 CDT 01/11
--- OUTSIDE RECORDS SUMMARY | 2019-10-27 11:43 | XMS REPORT | Clinical Summary ---
Author Author Admin, El[facility] Address Unknown Phone Unavailable Allergies, Adverse [...] ronary atherosclerosis of unspecified type of vessel, cherokee or graft OTH NONSPC ABN FINDNG RAD&OTH [...] INJECTOR 33 units SC daily INSULIN GLARGINE 24500220390 Active Baltazar Childers MD Active TRAMADOL HCL 50 MG ORAL TABLET 1 twice a day as needed for pain TRAMADOL HCL 87739606884 No Longer Active Baltazar Childers MD Active ROBAXIN 500 MG ORAL TABLET Take 1.5 (one and one half) tabs once daily METHOCARBAMOL 26078456164 Active Baltazar Childers MD Active SYNTHROID 112 MCG ORAL TABLET Take one tablet a day LEVOTHYROXINE SODIUM 55327760630 Active Baltazar Childers MD Active TRUE METRIX AIR GLUCOSE METER DEVICE Use as directed BLOOD GLUCOSE MONITORING SUPPL 98467140497 Active Baltazar Childers MD Activ e TRUE METRIX BLOOD GLUCOSE TEST IN VITRO STRIP test blood sug ar BID Dx: E11.65 GLUCOSE BLOOD 14199711984 Active KENDALL Juarez Active NORTRIPTYLINE HCL 50 MG ORAL CAPSULE 1 twice a day for neuropathy 2 NORTRIPTYLINE HCL 14154380037 Active Baltazar Childers MD Acti ve ASPIRIN 81 MG TBEC Take one (1) tablet by mouth daily ASPIRIN 26360788509 Active Baltazar Childers MD Active GABAPENTIN 300 MG ORAL CAPSULE 1 three times a day 201 12/03/26 GABAPENTIN 12874790685 No Longer Active Baltazar Childers MD Activ e LISINOPRIL 20 MG ORAL TABLET 1 tablet by mouth daily at night 2016 LISINOPRIL 19993151305 Active Baltazar Childers MD Active ZITHROMAX Z-ISAIAS 250 MG ORAL TABLET Take two tablets to day and then 1 tablet daily for 4 days AZITHROMYCIN 45064049999 No Longer A ctive Baltazar Childers MD Active AMLODIPINE BESYLATE 5 MG ORAL TABLET 1 tab daily for HTN AMLODIPINE BESYLATE 71243195765 Active Baltazar Childers MD Active GLIPIZIDE 10 MG ORAL TABLET take 2 tablets twice daily GLIPIZIDE 39443262514 Active Baltazar Childers MD Active SUCRALFATE 1 GM ORAL TABLET 1 four times a day to coat the stoma ch SUCRALFATE 75836340906 No Longer Active Baltazar Childers MD Active PEN NEEDLES 31G X 6 MM use 1 daily INSULIN PEN NE EDLE 02860355452 Active KENDALL Juarez Active TOZULEIKA SOLOSTAR 300 UNIT/ML SUBCUTANEOUS SOLUTION PEN- INJECTOR 10 units SC daily INSULIN GLARGINE 23832868381 No Longer Active Rola ARGUETA Active NAPROXEN SODIUM 220 MG ORAL TABLET 1 three times a day as needed NAPROXEN SODIUM 18751593473 No Longer Active Baltazar Childers MD Active ATORVASTATIN CALCIUM 20 MG ORAL TABLET Take 1 tab daily ATORVASTATIN CALCIUM 53763870143 Active Baltazar Childers MD A ctive FUROSEMIDE 40 MG ORAL TABLET Take one by mouth daily FUROSEMIDE 20000995443 Active Baltazar Childers MD Active LISINOPRIL 20 MG ORAL TABLET Take one by mouth daily at bedtime LISINOPRIL 72080803656 No Longer Active Baltazar Childers MD Active ONETOUCH ULTRA BLUE IN VITRO STRIP Test twice a day 07/11/11 GLUCOSE BLOOD 68219237727 No Longer Active Baltazar Childers MD Acti ve TRUEPLUS LANCETS 33G Test twice a day LANCETS 6524218 4022 Active KENDALL Juarez Active TRUEDRAW LANCING DEVICE Test twice a day LANCET DEVICES 41554719997 Active Baltazar Childers MD Active TRUETRACK BLOOD GLUCOSE w/Device KIT Test twice a day BLOOD GLUCOSE MONITORING SUPPL 77824445584 Active Baltazar Childers MD Activ e HYDROCODONE-ACETAMINOPHEN 7.5-325 MG ORAL TABLET Take 1 tab every 6-8 hours PRN HYDROCODONE-ACETAMINOPHEN 97606823500 Active Baltazar Nickerson MD Active GABAPENTIN 300 MG ORAL CAPSULE 1 po qd x 2 days, then 1 po BID x 2 days, then 1 po TID GABAPENTIN 51223114096 No Longer Active Baltazar Childers MD Active NAPROXEN 500 MG ORAL TABLET 1 tablet by mouth twice daily NAPROXEN 69855414401 No Longer Active Baltazar Childers MD Active PROAIR HFA 108 (90 Base) MCG/ACT INHALATION AEROSOL SO LUTION 2 puffs four times a day as needed ALBUTEROL SULFATE 67451285978 Active Shun Arellano LPN Active DEPO-TESTOSTERONE 200 MG/ML INTRAMUSCULAR SOLUTION as directed TESTOSTERONE CYPIONATE 10093699081 No Longer Active Blatazar Childers MD Active LIPITOR 20 MG ORAL TABLET Take one by mouth daily in evening ATORVASTATIN CALCIUM 82370395024 No Longer Active Baltazar Childers MD Active CRESTOR 10 MG ORAL TABLET 1 by mouth every day ROSUVASTATIN CALCIUM 96921711357 No Longer Active Baltazar Childers MD Active PHENTERMINE HCL 37.5 MG ORAL TABLET Take one by mouth daily PHENTERMINE HCL 05824200934 No Longer Active Baltazar Childers MD Ac tive TIZANIDINE HCL 4 MG ORAL TABLET 1 daily as needed for muscle spa sm TIZANIDINE HCL 79149261268 No Longer Active Dawna Salazar RN Active [id number] 50-325-40 MG ORAL TABLET 1 fo ur times a day as needed for heacache [id number] 65646061278 Active Beth Carr, RMA Active SUMATRIPTAN SUCCINATE 100 MG ORAL TABLET 1 tablet by m outh at onset of migraine as needed SUMATRIPTAN SUCCINATE 95586867990 Active Baltazar Nickerson MD Active LORATADINE 10 MG ORAL TABLET Take one by mouth daily LORATADINE 58665372784 Active Baltazar Childers MD Active OMEPRAZOLE 20 MG ORAL CAPSULE DELAYED RELEASE Take one by mouth jostin ly OMEPRAZOLE 70338355394 Active Baltazar Childers MD Active HYDROXYZINE HCL 25 MG ORAL TABLET Take one by mouth daily HYDROXYZINE HCL 89461659585 Active Baltazar Childers MD Active ALPRAZOLAM 1 MG ORAL TABLET 1 tablet [facility] ALPRAZOLAM 31539788570 Active Baltazar Childers MD Active METFORMIN HCL 1000 MG ORAL TABLET Take one by mouth twice daily METFORMIN HCL 38349412543 Active Baltazar Childers MD Active TIZANIDINE HCL 4 MG ORAL TABLET 1 daily as needed for muscle spa sm TIZANIDINE HCL 4 MG ORAL TABLET 409264 TIZANIDINE HCL Inactive PHENTERMINE HCL 37.5 MG ORAL TABLET Take one by mouth daily PHENTERMINE HCL 37.5 MG ORAL TABLET 944266 PHENTERMINE HCL Inac tive CRESTOR 10 MG ORAL TABLET 1 by mouth every day CRESTOR 10 MG ORAL TABLET 493243 ROSUVASTATIN CALCIUM Inactive LIPITOR 20 MG ORAL TABLET Take one by mouth daily in evening LIPITOR 20 MG ORAL TABLET 364587 ATORVASTATIN CALCIUM Inactive DEPO-TESTOSTERONE 200 MG/ML INTRAMUSCULAR SOLUTION as directed DEPO-TESTOSTERONE 200 MG/ML INTRAMUSCULAR SOLUTION 6094872 RUFINO TOSTERONE CYPIONATE Inactive NAPROXEN 500 MG ORAL TABLET 1 tablet by mouth twice daily NAPROXEN 500 MG ORAL TABLET 451555 NAPROXEN Inactive GABAPENTIN 300 MG ORAL CAPSULE 1 po qd x 2 days, then 1 po BID x 2 days, then 1 po TID GABAPENTIN 300 MG ORAL CAPSULE 672322 GABAP ENTIN Inactive ONETOUCH ULTRA BLUE IN VITRO STRIP Test twice a day 07/11/11 ONETOUCH ULTRA BLUE IN VITRO STRIP GLUCOSE BLOOD Inact amie NAPROXEN SODIUM 220 MG ORAL TABLET 1 three times a day as needed NAPROXEN SODIUM 220 MG ORAL TABLET 251762 NAPROXEN SODI UM Inactive TOUJEO SOLOSTAR 300 UNIT/ML SUBCUTANEOUS SOLUTION PEN- INJECTOR 10 units SC daily TOUJEO SOLOSTAR 300 UNIT/ML SUBCUTANEOUS SOLUTION PEN-INJECTOR INSULIN GLARGINE Inactive SUCRALFATE 1 GM ORAL TABLET 1 four times a day to coat the stoma ch SUCRALFATE 1 GM ORAL TABLET 832349 SUCRALFATE Inac tive GABAPENTIN 300 MG ORAL CAPSULE 1 three times a day 201 12/03/26 GABAPENTIN 300 MG ORAL CAPSULE 017523 GABAPENTIN Inactive TRAMADOL HCL 50 MG ORAL TABLET 1 twice a day as needed for pain TRAMADOL HCL 50 MG ORAL TABLET 104630 TRAMADOL HCL I nactive ZITHROMAX Z-ISAIAS 250 MG ORAL TABLET Take two tablets to day and then 1 tablet daily for 4 days ZITHROMAX Z-ISAIAS 250 MG ORAL TAB LET 471730 AZITHROMYCIN Inactive Immunizations Vaccine Administration Date Value Standard Floyd cription influenza immunization (Flu Vax) has been administered 05/11 Done according to patient influenza virus vaccine, unspecified for mulation pneumococcal immunization administered Pneumovax 23 [CVX33] pneumococcal polysaccharide vaccine, 23 valent Seasonal influenza vaccine, injectable, containing preservative, for > 3 years old (Afluria, FluLaval, Fluzone, Fluvirin, Fluarix, Agriflu(>= 18 yo)) Fluzone (>3 yrs.) [IHM500] Influenza, seasonal, inject able Seasonal influenza vaccine, injectable, containing preservative, for > 3 years old (Afluria, FluLaval, Fluzone, Fluvirin, Fluarix, Agriflu(>= 18 yo)) Fluzone (>3 yrs.) [OQJ702] Influenza, seasonal, inject able Vital Signs Date [...] - Chem istry sodium, serum 139 mmol/L 865-939 8164/06/26 potassium, serum 4.8 mmol/L 3.5-5.2 chloride, serum 102 mmol/L 98-107 carbon dioxide, venous blood 29.1 mmol/L 21.0-32 .0 blood glucose 179 mg/dL 65-95 calcium, serum 9.7 mg/dL 8.5-10.1 urea nitrogen, blood 31 mg/dL 7-18 creatinine, serum 1.97 mg/dL 0.60-1.30 sodium, serum 136 mmol/L 229-439 7584/06/04 potassium, serum 4.9 mmol/L 3.5-5.2 chloride, serum [...] 0.40 mg/dL 0.00-1.00 cholesterol, serum 218 mg/dL 452-480 0551/12/18 triglyceride, serum, fasting 357 mg/dL 30-200 HDL cholesterol, serum 49 mg/dL 32-60 LDL cholesterol, serum 103.00 mg/dL 5.00-130.00 hemoglobin A1C, blood, as % of total hemoglobin 8.5 % 4.3-6.0 sodium, serum 142 mmol/L 224-019 1688/12/18 carbon dioxide, venous blood 32.5 mmol/L 21.0-32 [...] 0.36-3.74 Encounters Code Encounter Date Provider Facility CPT-78235 06899-Ceg Vst-Est Level IV 15:14:58 CDT Charlie Childers MD [facility] CPT-90188 05231-Bde Vst-Est Level IV 15:12:52 [employer]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 Patient 17:26:08 CDT Ann trujillo PA-C [facility] CPT-17075 66282-Pxt Vst-Est Level V 14:26:27 CDT Aneudy Childers MD [facility]-67618 Level 4 Est. Patient 17:05:37 CDT Baltazar Childers MD [facility]-06875 Level 4 Est. Patient 16:21:19 [employer] WORKER Baltazar Childers MD [facility]-40946 Level 4 Est. Patient 12:25:11 CDT Baltazar Childers MD [facility]-71015 Level 4 Est. Patient 14:22:31 CDT Baltazar Childers MD [facility]-82691 Level 4 Est. Patient 15:44:38 [facility] Patient 11:34:17 CDT Baltazar Childers MD [facility]-36499 Level 3 Est. Patient 16:40:40 CDT Baltazar Childers MD [facility]-28039 Level 4 Est. Patient 10:41:24 CDT Baltazar Childers MD [facility]-81006 Level 4 Est. Patient 16:01:48 CDT Baltazar Childers MD [facility]-81380 Level 4 Est. 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 Patient 15:42:12 CDT Baltazar Childers MD [facility]-80735 Level 4 Est. Patient 11:29:55 CDT Baltazar Childers MD [facility] CPT-69127 Level 4 Est. Patient 14:15:19 CDT Baltazar Childers MD [facility]-55521 Level 4 Est. Patient 12:20:13 CDT Baltazar Childers MD [facility]-90132 Level 4 Est. 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 Patient 14:18:34 OYSTER WORKER Baltazar Childers MD [facility] CPT-71538 Level 4 Est. Patient 15:18:29 CDT Baltazar Childers MD [facility] CPT-30043 Level 3 Est. Patient 12:45:34 CDT Baltazar Childers MD [facility] CPT-39666 Level 3 Est. Patient 10:10:11 CDT Baltazar Childers MD [facility] CPT-68474 Level 3 Est. Patient 14:07:50 CDT Baltazar Childers MD [facility] CPT-23630 Level 4 Est. Patient 12:26:10 [employer]STER WORKER Baltazar Childers MD [facility] CPT-28013 Level 4 Est. 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 WORKER 9 CPT-85843 HGBA1C - LAB USE ONLY 17:39:15 [employer]STER WORKER CPT-95303 CMP - LAB USE ONLY 17:39:14 [employer]STER WORKER CPT-82072 Venipuncture Draw Fee 17:39:14 O[employer]STER WORKER CPT-86574 First Vx - Ix admin via ID I M or jet injects without counseling by physician 16:55:17 [employer]YSTER WORKER CPT-41383 Fluzone Quadrivalent Intramuscular Suspe nsion 0.5 ML 16:55:17 OYSTER WORKER CPT-42576 Renal Panel - LAB USE ONLY 17:39:20 CDT 201 10/31/07 CPT-41575 CBC - LAB USE ONLY 17:39:20 CDT CPT-36362 Venipuncture Draw Fee 17:39:20 CDT CPT-16016 Venipuncture Draw Fee 14:33:30 CDT CPT-95964 Renal Panel - LAB USE ONLY 14:33:30 CDT 201 10/31/07 CPT-69662 CBC - LAB USE ONLY 14:33:29 CDT CPT-33938 Venipuncture Draw Fee 14:50:21 [employer]STER WORKER CPT-90321 Immunization Single Admin 17:35:35 CDT 2014 CPT-32439 Fluzone Quadrivalent preservative free ( >=3yrs.) 17:35:35 CDT CPT-97341 Venipuncture Draw Fee 12:10:27 [employer] WORKER CPT-06607 Fluzone Quadrivalent Intramuscular Suspe nsion 0.5 ML 10:49:13 CDT CPT-98522 First Vx Component - Ix admi n via ID IM or jet inj without physician counseling 15:17:19 [employer] WORKER CPT-58645 Pneumovax 23 15:17:19 [employer]YSTER WORKER CPT-61141 Pneumovax 14:52:45 [employer]STER WORKER CPT-52872 Venipuncture Draw Fee 14:06:30 O[employer] WORKER CPT-000 Give Appropriate Flu Vaccine 14:18:34 OYSTER WORKER 2 CPT-32489 Administration single or combination vac cine inc oral 14:46:00 [employer] WORKER CPT-18975 Influenza split virus > age 3 14:46:00 [employer]YSTER WORKER CPT-OV Office Visit 19:13:16 CDT CPT-29986 Zostavax 18:41:56 CDT CPT-40118 Administration single or combination vac cine inc oral 12:56:39 CDT CPT-16671 Zoster Vaccine (Zostavax) 12:56:39 CDT 2012 CPT-57018 Venipuncture Draw Fee 10:58:57 CDT CPT-43992 Sono pelvis non OB uterus ovaries cervix 17:45:04 CDT CPT-41676 Sono retroperitoneal complete kidneys an d bladder 17:14:36 CDT CPT-OV Office Visit 14:59:38 [employer] WORKER CPT-J1070 Depo Testosterone 100 mg 14:50:13 CDT 03/05 CPT-44803 Abx/Therapy Injection 14:50:13 CDT CPT-32686 Administration single or combination vac cine inc oral 14:34:43 CDT CPT-49810 Influenza split virus > age 3 14:34:43 CDT CPT-J1070 Depo Testosterone 100 mg 17:37:13 CDT 01/11 CPT-67797 Abx/Therapy Injection 17:37:13 CDT CPT-38575 Venipuncture Draw Fee 16:30:13 CDT CPT-51513 Venipuncture Draw Fee 16:29:43 CDT CPT-J1070 Depo Testosterone 100 mg 14:45:38 CDT 01/11
--- OUTSIDE RECORDS SUMMARY | 2019-10-27 11:43 | XMS REPORT | Clinical Summary ---
Author Author Admin, Elba Lance [facility] Address Unknown Phone Unavailable Allergies, [...] ronary atherosclerosis of unspecified type of vessel, agdaagux or graft OTH NONSPC ABN FINDNG RAD&OTH [...] INJECTOR 33 units SC daily INSULIN GLARGINE 95127116041 Active Baltazar Childers MD Active TRAMADOL HCL 50 MG ORAL TABLET 1 twice a day as needed for pain TRAMADOL HCL 14772690516 No Longer Active Baltazar Childers MD Active ROBAXIN 500 MG ORAL TABLET Take 1.5 (one and one half) tabs once daily METHOCARBAMOL 37279243402 Active Baltazar Childers MD Active SYNTHROID 112 MCG ORAL TABLET Take one tablet a day LEVOTHYROXINE SODIUM 64240472350 Active Baltazar Childers MD Active TRUE METRIX AIR GLUCOSE METER DEVICE Use as directed BLOOD GLUCOSE MONITORING SUPPL 38452966295 Active Baltazar Childers MD Activ e TRUE METRIX BLOOD GLUCOSE TEST IN VITRO STRIP test blood sug ar BID Dx: E11.65 GLUCOSE BLOOD 11957147663 Active KENDALL Juarez Active NORTRIPTYLINE HCL 50 MG ORAL CAPSULE 1 twice a day for neuropathy 2 NORTRIPTYLINE HCL 14096475621 Active Baltazar Childers MD Acti ve ASPIRIN 81 MG TBEC Take one (1) tablet by mouth daily ASPIRIN 56332801921 Active Baltazar Childers MD Active GABAPENTIN 300 MG ORAL CAPSULE 1 three times a day 201 12/03/26 GABAPENTIN 26208359526 No Longer Active Baltazar Childers MD Activ e LISINOPRIL 20 MG ORAL TABLET 1 tablet by mouth daily at night 2016 LISINOPRIL 07741742862 Active Baltazar Childers MD Active ZITHROMAX Z-ISAIAS 250 MG ORAL TABLET Take two tablets to day and then 1 tablet daily for 4 days AZITHROMYCIN 68436128824 No Longer A ctive Baltazar Childers MD Active AMLODIPINE BESYLATE 5 MG ORAL TABLET 1 tab daily for HTN AMLODIPINE BESYLATE 67904939688 Active Baltazar Childers MD Active GLIPIZIDE 10 MG ORAL TABLET take 2 tablets twice daily GLIPIZIDE 35753010310 Active Baltazar Childers MD Active SUCRALFATE 1 GM ORAL TABLET 1 four times a day to coat the stoma ch SUCRALFATE 89413255179 No Longer Active Baltazar Childers MD Active PEN NEEDLES 31G X 6 MM use 1 daily INSULIN PEN NE EDLE 35010182618 Active KENDALL Juarez Active TOZULEIKA SOLOSTAR 300 UNIT/ML SUBCUTANEOUS SOLUTION PEN- INJECTOR 10 units SC daily INSULIN GLARGINE 88983895991 No Longer Active Rola ARGUETA Active NAPROXEN SODIUM 220 MG ORAL TABLET 1 three times a day as needed NAPROXEN SODIUM 08159458512 No Longer Active Baltazar Childers MD Active ATORVASTATIN CALCIUM 20 MG ORAL TABLET Take 1 tab daily ATORVASTATIN CALCIUM 65975787971 Active Baltazar Childers MD A ctive FUROSEMIDE 40 MG ORAL TABLET Take one by mouth daily FUROSEMIDE 17095647656 Active Baltazar Childers MD Active LISINOPRIL 20 MG ORAL TABLET Take one by mouth daily at bedtime LISINOPRIL 65141269342 No Longer Active Baltazar Childers MD Active ONETOUCH ULTRA BLUE IN VITRO STRIP Test twice a day 07/11/11 GLUCOSE BLOOD 94237423631 No Longer Active Baltazar Childers MD Acti ve TRUEPLUS LANCETS 33G Test twice a day LANCETS 1948960 4025 Active KENDALL Juarez Active TRUEDRAW LANCING DEVICE Test twice a day LANCET DEVICES 73117509317 Active Baltazar Childers MD Active TRUETRACK BLOOD GLUCOSE w/Device KIT Test twice a day BLOOD GLUCOSE MONITORING SUPPL 88927491594 Active Baltazar Childers MD Activ e HYDROCODONE-ACETAMINOPHEN 7.5-325 MG ORAL TABLET Take 1 tab every 6-8 hours PRN HYDROCODONE-ACETAMINOPHEN 93205235643 Active Baltazar Nickerson MD Active GABAPENTIN 300 MG ORAL CAPSULE 1 po qd x 2 days, then 1 po BID x 2 days, then 1 po TID GABAPENTIN 91952377648 No Longer Active Baltazar Childers MD Active NAPROXEN 500 MG ORAL TABLET 1 tablet by mouth twice daily NAPROXEN 29834647698 No Longer Active Baltazar Childers MD Active PROAIR HFA 108 (90 Base) MCG/ACT INHALATION AEROSOL SO LUTION 2 puffs four times a day as needed ALBUTEROL SULFATE 84788086675 Active Shun Arellano LPN Active DEPO-TESTOSTERONE 200 MG/ML INTRAMUSCULAR SOLUTION as directed TESTOSTERONE CYPIONATE 93166121406 No Longer Active Baltazar Childers MD Active LIPITOR 20 MG ORAL TABLET Take one by mouth daily in evening ATORVASTATIN CALCIUM 79175105769 No Longer Active Baltazar Childers MD Active CRESTOR 10 MG ORAL TABLET 1 by mouth every day ROSUVASTATIN CALCIUM 07982542197 No Longer Active Baltazar Childers MD Active PHENTERMINE HCL 37.5 MG ORAL TABLET Take one by mouth daily PHENTERMINE HCL 69908631534 No Longer Active Baltazar Childers MD Ac tive TIZANIDINE HCL 4 MG ORAL TABLET 1 daily as needed for muscle spa sm TIZANIDINE HCL 14263229670 No Longer Active Dawna Salazar RN Active [id number] 50-325-40 MG ORAL TABLET 1 fo ur times a day as needed for heacache [id number] 44182023914 Active Beth Carr, RMA Active SUMATRIPTAN SUCCINATE 100 MG ORAL TABLET 1 tablet by m outh at onset of migraine as needed SUMATRIPTAN SUCCINATE 50325244244 Active Baltazar Nickerson MD Active LORATADINE 10 MG ORAL TABLET Take one by mouth daily LORATADINE 62491591802 Active Baltazar Childers MD Active OMEPRAZOLE 20 MG ORAL CAPSULE DELAYED RELEASE Take one by mouth jostin ly OMEPRAZOLE 59117924991 Active Baltazar Childers MD Active HYDROXYZINE HCL 25 MG ORAL TABLET Take one by mouth daily HYDROXYZINE HCL 70667890680 Active Baltazar Childers MD Active ALPRAZOLAM 1 MG ORAL TABLET 1 [facility] AL[facility]OLAM 03733757424 Active Baltazar Childers MD Active METFORMIN HCL 1000 MG ORAL TABLET Take one by mouth twice daily METFORMIN HCL 59938495141 Active Baltazar Childers MD Active TIZANIDINE HCL 4 MG ORAL TABLET 1 daily as needed for muscle spa sm TIZANIDINE HCL 4 MG ORAL TABLET 308479 TIZANIDINE HCL Inactive PHENTERMINE HCL 37.5 MG ORAL TABLET Take one by mouth daily PHENTERMINE HCL 37.5 MG ORAL TABLET 545162 PHENTERMINE HCL Inac tive CRESTOR 10 MG ORAL TABLET 1 by mouth every day CRESTOR 10 MG ORAL TABLET 072909 ROSUVASTATIN CALCIUM Inactive LIPITOR 20 MG ORAL TABLET Take one by mouth daily in evening LIPITOR 20 MG ORAL TABLET 611563 ATORVASTATIN CALCIUM Inactive DEPO-TESTOSTERONE 200 MG/ML INTRAMUSCULAR SOLUTION as directed DEPO-TESTOSTERONE 200 MG/ML INTRAMUSCULAR SOLUTION 8457515 RUFINO TOSTERONE CYPIONATE Inactive NAPROXEN 500 MG ORAL TABLET 1 tablet by mouth twice daily NAPROXEN 500 MG ORAL TABLET 421080 NAPROXEN Inactive GABAPENTIN 300 MG ORAL CAPSULE 1 po qd x 2 days, then 1 po BID x 2 days, then 1 po TID GABAPENTIN 300 MG ORAL CAPSULE 359467 GABAP ENTIN Inactive ONETOUCH ULTRA BLUE IN VITRO STRIP Test twice a day 07/11/11 ONETOUCH ULTRA BLUE IN VITRO STRIP GLUCOSE BLOOD Inact amie NAPROXEN SODIUM 220 MG ORAL TABLET 1 three times a day as needed NAPROXEN SODIUM 220 MG ORAL TABLET 739955 NAPROXEN SODI UM Inactive TOUJEO SOLOSTAR 300 UNIT/ML SUBCUTANEOUS SOLUTION PEN- INJECTOR 10 units SC daily TOUJEO SOLOSTAR 300 UNIT/ML SUBCUTANEOUS SOLUTION PEN-INJECTOR INSULIN GLARGINE Inactive SUCRALFATE 1 GM ORAL TABLET 1 four times a day to coat the stoma ch SUCRALFATE 1 GM ORAL TABLET 049314 SUCRALFATE Inac tive GABAPENTIN 300 MG ORAL CAPSULE 1 three times a day 201 12/03/26 GABAPENTIN 300 MG ORAL CAPSULE 940439 GABAPENTIN Inactive TRAMADOL HCL 50 MG ORAL TABLET 1 twice a day as needed for pain TRAMADOL HCL 50 MG ORAL TABLET 237659 TRAMADOL HCL I nactive ZITHROMAX Z-ISAIAS 250 MG ORAL TABLET Take two tablets to day and then 1 tablet daily for 4 days ZITHROMAX Z-ISAIAS 250 MG ORAL TAB LET 639769 AZITHROMYCIN Inactive Immunizations Vaccine Administration Date Value Standard Floyd cription influenza immunization (Flu Vax) has been administered 05/11 Done according to patient influenza virus vaccine, unspecified for mulation pneumococcal immunization administered Pneumovax 23 [CVX33] pneumococcal polysaccharide vaccine, 23 valent Seasonal influenza vaccine, injectable, containing preservative, for > 3 years old (Afluria, FluLaval, Fluzone, Fluvirin, Fluarix, Agriflu(>= 18 yo)) Fluzone (>3 yrs.) [[id number]] Influenza, seasonal, inject able Seasonal influenza vaccine, injectable, containing preservative, for > 3 years old (Afluria, FluLaval, Fluzone, Fluvirin, Fluarix, Agriflu(>= 18 yo)) Fluzone (>3 yrs.) [[id number]] Influenza, seasonal, inject able Vital Signs Date [...] - Chem istry sodium, serum 139 mmol/L 184-491 6093/06/26 potassium, serum 4.8 mmol/L 3.5-5.2 chloride, serum 102 mmol/L 98-107 carbon dioxide, venous blood 29.1 mmol/L 21.0-32 .0 blood glucose 179 mg/dL 65-95 calcium, serum 9.7 mg/dL 8.5-10.1 urea nitrogen, blood 31 mg/dL 7-18 creatinine, serum 1.97 mg/dL 0.60-1.30 sodium, serum 136 mmol/L 350-875 8560/06/04 potassium, serum 4.9 mmol/L 3.5-5.2 chloride, serum [...] 0.40 mg/dL 0.00-1.00 cholesterol, serum 218 mg/dL 004-392 2015/12/18 triglyceride, serum, fasting 357 mg/dL 30-200 HDL cholesterol, serum 49 mg/dL 32-60 LDL cholesterol, serum 103.00 mg/dL 5.00-130.00 hemoglobin A1C, blood, as % of total hemoglobin 8.5 % 4.3-6.0 sodium, serum 142 mmol/L 070-233 7713/12/18 carbon dioxide, venous blood 32.5 mmol/L 21.0-32 [...] 0.36-3.74 Encounters Code Encounter Date Provider Facility CPT-16209 94683-Iko Vst-Est Level IV 15:14:58 CDT Charlie Childers MD [facility] CPT-14044 54008-Iuv Vst-Est Level IV 15:12:52 [employer] Charlie Childers MD [facility] CPT-12899 70064-Mwr Vst-Est Level IV 15:30:55 [employer] Charlie Childers MD [facility] CPT-54529 93823-Ify Vst-Est Level IV 13:49:06 C ELIOT Martinez PA-C [facility] CPT-89145 Level 4 Est. Patient 17:26:08 CDT Ann trujillo PA-C [facility] CPT-94156 43307-Kos Vst-Est Level V 14:26:27 CDT Aneudy Childers MD [facility]-28129 Level 4 Est. Patient 17:05:37 CDT Baltazar Childers MD [facility]-21645 Level 4 Est. Patient 16:21:19 [employer] Baltazar Childers MD [facility]-87090 Level 4 Est. Patient 12:25:11 CDT Baltazar Childers MD [facility]-18694 Level 4 Est. Patient 14:22:31 CDT Baltazar Childers MD [facility]-32076 Level 4 Est. Patient 15:44:38 [facility] Patient 11:34:17 CDT Baltazar Childers MD [facility]-69398 Level 3 Est. Patient 16:40:40 CDT Baltazar Childers MD [facility]-89762 Level 4 Est. Patient 10:41:24 CDT Baltazar Childers MD [facility]-74443 Level 4 Est. Patient 16:01:48 CDT Baltazar Childers MD [facility]-75818 Level 4 Est. Patient 16:54:07 [employer] Baltazar Childers MD [facility]-99340 Level 4 Est. Patient 15:42:12 CDT Baltazar Childers MD [facility]-37280 Level 4 Est. Patient 11:29:55 CDT Baltazar Childers MD [facility] CPT-30184 Level 4 Est. Patient 14:15:19 CDT Baltazar Childers MD [facility]-27807 Level 4 Est. Patient 12:20:13 CDT Baltazar Childers MD [facility]-35214 Level 4 Est. Patient 14:52:45 [employer] Baltazar Childers MD [facility] CPT-29125 Level 4 Est. Patient 14:18:34 [employer] Baltazar Childers MD [facility] CPT-37553 Level 4 Est. Patient 15:18:29 CDT Baltazar Childers MD [facility] CPT-63878 Level 3 Est. Patient 12:45:34 CDT Baltazar Childers MD [facility] CPT-53903 Level 3 Est. Patient 10:10:11 CDT Baltazar Childers MD [facility] CPT-91965 Level 3 Est. Patient 14:07:50 CDT Baltazar Childers MD [facility] CPT-41690 Level 4 Est. Patient 12:26:10 [employer] Baltazar Childers MD [facility] CPT-78320 Level 4 Est. Patient 14:45:38 CDT Baltazar Childers MD [facility] CPT-15251 Level 4 New Patient 12:30:48 CDT Baltazar hinton MD [facility] Procedures Code Procedure Name Date Entry Date Standard Desc ription CPT-000 Give Appropriate Flu Vaccine 12:25:14 CDT 2 CPT-37760 First Vx - Ix admin via ID I M or jet injects without counseling by physician 13:08:59 CDT CPT-03421 Fluzone Quadrivalent Intramuscular Suspe nsion 0.5 ML 13:08:59 CDT CPT-34625 Venipuncture Draw Fee 12:04:12 CDT CPT-74377 Lipid - LAB USE ONLY 17:39:15 [employer] 9 CPT-60866 HGBA1C - LAB USE ONLY 17:39:15 [employer] CPT-35555 CMP - LAB USE ONLY 17:39:14 [employer] CPT-85700 Venipuncture Draw Fee 17:39:14 [employer] CPT-53936 First Vx - Ix admin via ID I M or jet injects without counseling by physician 16:55:17 [employer] CPT-19689 Fluzone Quadrivalent Intramuscular Suspe nsion 0.5 ML 16:55:17 [employer] CPT-97123 Renal Panel - LAB USE ONLY 17:39:20 CDT 201 10/31/07 CPT-58810 CBC - LAB USE ONLY 17:39:20 CDT CPT-03978 Venipuncture Draw Fee 17:39:20 CDT CPT-41250 Venipuncture Draw Fee 14:33:30 CDT CPT-50407 Renal Panel - LAB USE ONLY 14:33:30 CDT 201 10/31/07 CPT-33613 CBC - LAB USE ONLY 14:33:29 CDT CPT-54227 Venipuncture Draw Fee 14:50:21 [employer] CPT-39037 Immunization Single Admin 17:35:35 CDT 2014 CPT-08825 Fluzone Quadrivalent preservative free ( >=3yrs.) 17:35:35 CDT CPT-66154 Venipuncture Draw Fee 12:10:27 [employer] CPT-49353 Fluzone Quadrivalent Intramuscular Suspe nsion 0.5 ML 10:49:13 CDT CPT-80480 First Vx Component - Ix admi n via ID IM or jet inj without physician counseling 15:17:19 [employer] CPT-62325 Pneumovax 23 15:17:19 [employer] CPT-90516 Pneumovax 14:52:45 [employer] CPT-19312 Venipuncture Draw Fee 14:06:30 [employer] CPT-000 Give Appropriate Flu Vaccine 14:18:34 [employer] 2 CPT-78895 Administration single or combination vac cine inc oral 14:46:00 [employer] CPT-61711 Influenza split virus > age 3 14:46:00 [employer] CPT-OV Office Visit 19:13:16 CDT CPT-60547 Zostavax 18:41:56 CDT CPT-66083 Administration single or combination vac cine inc oral 12:56:39 CDT CPT-52452 Zoster Vaccine (Zostavax) 12:56:39 CDT 2012 CPT-04909 Venipuncture Draw Fee 10:58:57 CDT CPT-70259 Sono pelvis non OB uterus ovaries cervix 17:45:04 CDT CPT-01564 Sono retroperitoneal complete kidneys an d bladder 17:14:36 CDT CPT-OV Office Visit 14:59:38 [employer] CPT-J1070 Depo Testosterone 100 mg 14:50:13 CDT 03/05 CPT-84982 Abx/Therapy Injection 14:50:13 CDT CPT-73569 Administration single or combination vac cine inc oral 14:34:43 CDT CPT-06337 Influenza split virus > age 3 14:34:43 CDT CPT-J1070 Depo Testosterone 100 mg 17:37:13 CDT 01/11 CPT-23918 Abx/Therapy Injection 17:37:13 CDT CPT-03329 Venipuncture Draw Fee 16:30:13 CDT CPT-93676 Venipuncture Draw Fee 16:29:43 CDT CPT-J1070 Depo Testosterone 100 mg 14:45:38 CDT 01/11
--- OUTSIDE RECORDS SUMMARY | 2019-10-27 11:44 | XMS REPORT | Clinical Summary ---
[...] Comment Standard Description Annotate ASTHMA 493.90 Active Blatazar Childers MD Asthma, unspecified DEGENERATIVE DISC DISEASE, [...] ronary atherosclerosis of unspecified type of vessel, ione or graft OTH NONSPC ABN FINDNG RAD&OTH [...] INJECTOR 33 units SC daily INSULIN GLARGINE 82488951367 Active Baltazar Childers MD Active TRAMADOL HCL 50 MG ORAL TABLET 1 twice a day as needed for pain TRAMADOL HCL 48449221431 No Longer Active Baltazar Childers MD Active ROBAXIN 500 MG ORAL TABLET Take 1.5 (one and one half) tabs once daily METHOCARBAMOL 11948319828 Active Baltazar Childers MD Active SYNTHROID 112 MCG ORAL TABLET Take one tablet a day LEVOTHYROXINE SODIUM 77537030524 Active Baltazar Childers MD Active TRUE METRIX AIR GLUCOSE METER DEVICE Use as directed BLOOD GLUCOSE MONITORING SUPPL 29052896474 Active Baltazar Childers MD Activ e TRUE METRIX BLOOD GLUCOSE TEST IN VITRO STRIP test blood sug ar BID Dx: E11.65 GLUCOSE BLOOD 76884764932 Active KENDALL Juarez Active NORTRIPTYLINE HCL 50 MG ORAL CAPSULE 1 twice a day for neuropathy 2 NORTRIPTYLINE HCL 86806673981 Active aBltazar Childers MD Acti ve ASPIRIN 81 MG TBEC Take one (1) tablet by mouth daily ASPIRIN 28570015733 Active Baltazar Childers MD Active GABAPENTIN 300 MG ORAL CAPSULE 1 three times a day 201 12/03/26 GABAPENTIN 64552118711 No Longer Active Baltazar Childers MD Activ e LISINOPRIL 20 MG ORAL TABLET 1 tablet by mouth daily at night 2016 LISINOPRIL 00527086951 Active Baltazar Childers MD Active ZITHROMAX Z-ISAIAS 250 MG ORAL TABLET Take two tablets to day and then 1 tablet daily for 4 days AZITHROMYCIN 02778084077 No Longer A ctive Baltazar Childers MD Active AMLODIPINE BESYLATE 5 MG ORAL TABLET 1 tab daily for HTN AMLODIPINE BESYLATE 02246753293 Active Baltazar Childers MD Active GLIPIZIDE 10 MG ORAL TABLET take 2 tablets twice daily GLIPIZIDE 81003655722 Active Baltazar Childers MD Active SUCRALFATE 1 GM ORAL TABLET 1 four times a day to coat the stoma ch SUCRALFATE 98742056894 No Longer Active Baltazar Childers MD Active PEN NEEDLES 31G X 6 MM use 1 daily INSULIN PEN NE EDLE 92702359471 Active KENDALL Juarez Active TOZULEIKA SOLOSTAR 300 UNIT/ML SUBCUTANEOUS SOLUTION PEN- INJECTOR 10 units SC daily INSULIN GLARGINE 35379528080 No Longer Active Rola ARGUETA Active NAPROXEN SODIUM 220 MG ORAL TABLET 1 three times a day as needed NAPROXEN SODIUM 63860083195 No Longer Active Baltazar Childers MD Active ATORVASTATIN CALCIUM 20 MG ORAL TABLET Take 1 tab daily ATORVASTATIN CALCIUM 25361005706 Active Baltazar Childers MD A ctive FUROSEMIDE 40 MG ORAL TABLET Take one by mouth daily FUROSEMIDE 10682386016 Active Baltazar Childers MD Active LISINOPRIL 20 MG ORAL TABLET Take one by mouth daily at bedtime LISINOPRIL 59509799049 No Longer Active Baltazar Childers MD Active ONETOUCH ULTRA BLUE IN VITRO STRIP Test twice a day 07/11/11 GLUCOSE BLOOD 12304030268 No Longer Active Baltazar Childers MD Acti ve TRUEPLUS LANCETS 33G Test twice a day LANCETS 8040143 3049 Active KENDALL Juarez Active TRUEDRAW LANCING DEVICE Test twice a day LANCET DEVICES 94049810419 Active Baltazar Childers MD Active TRUETRACK BLOOD GLUCOSE w/Device KIT Test twice a day BLOOD GLUCOSE MONITORING SUPPL 46521610015 Active Baltazar Childers MD Activ e HYDROCODONE-ACETAMINOPHEN 7.5-325 MG ORAL TABLET Take 1 tab every 6-8 hours PRN HYDROCODONE-ACETAMINOPHEN 54760025335 Active Baltazar Nickerson MD Active GABAPENTIN 300 MG ORAL CAPSULE 1 po qd x 2 days, then 1 po BID x 2 days, then 1 po TID GABAPENTIN 22667718261 No Longer Active Baltazar Childers MD Active NAPROXEN 500 MG ORAL TABLET 1 tablet by mouth twice daily NAPROXEN 59541775393 No Longer Active Baltazar Childers MD Active PROAIR HFA 108 (90 Base) MCG/ACT INHALATION AEROSOL SO LUTION 2 puffs four times a day as needed ALBUTEROL SULFATE 18443129790 Active Shun Arellano LPN Active DEPO-TESTOSTERONE 200 MG/ML INTRAMUSCULAR SOLUTION as directed TESTOSTERONE CYPIONATE 00247448755 No Longer Active Baltazar Childers MD Active LIPITOR 20 MG ORAL TABLET Take one by mouth daily in evening ATORVASTATIN CALCIUM 94870442360 No Longer Active Baltazar Childers MD Active CRESTOR 10 MG ORAL TABLET 1 by mouth every day ROSUVASTATIN CALCIUM 33124450291 No Longer Active Baltazar Childers MD Active PHENTERMINE HCL 37.5 MG ORAL TABLET Take one by mouth daily PHENTERMINE HCL 87488597310 No Longer Active Baltazar Childers MD Ac tive TIZANIDINE HCL 4 MG ORAL TABLET 1 daily as needed for muscle spa sm TIZANIDINE HCL 33258747360 No Longer Active Dawna Salazar RN Active [id number] 50-325-40 MG ORAL TABLET 1 fo ur times a day as needed for heacache [id number] 99436781081 Active Beth Carr, RMA Active SUMATRIPTAN SUCCINATE 100 MG ORAL TABLET 1 tablet by m outh at onset of migraine as needed SUMATRIPTAN SUCCINATE 33967126340 Active Baltazar Nickerson MD Active LORATADINE 10 MG ORAL TABLET Take one by mouth daily LORATADINE 04337150925 Active Baltazar Childers MD Active OMEPRAZOLE 20 MG ORAL CAPSULE DELAYED RELEASE Take one by mouth jostin ly OMEPRAZOLE 01413493944 Active Baltazar Childers MD Active HYDROXYZINE HCL 25 MG ORAL TABLET Take one by mouth daily HYDROXYZINE HCL 85738913845 Active Baltazar Childers MD Active ALPRAZOLAM 1 MG ORAL TABLET 1 [facility] 83444086012 Active Baltazar Childers MD Active METFORMIN HCL 1000 MG ORAL TABLET Take one by mouth twice daily METFORMIN HCL 08184239978 Active Baltazar Childers MD Active TIZANIDINE HCL 4 MG ORAL TABLET 1 daily as needed for muscle spa sm TIZANIDINE HCL 4 MG ORAL TABLET 659302 TIZANIDINE HCL Inactive PHENTERMINE HCL 37.5 MG ORAL TABLET Take one by mouth daily PHENTERMINE HCL 37.5 MG ORAL TABLET 417059 PHENTERMINE HCL Inac tive CRESTOR 10 MG ORAL TABLET 1 by mouth every day CRESTOR 10 MG ORAL TABLET 363129 ROSUVASTATIN CALCIUM Inactive LIPITOR 20 MG ORAL TABLET Take one by mouth daily in evening LIPITOR 20 MG ORAL TABLET 672947 ATORVASTATIN CALCIUM Inactive DEPO-TESTOSTERONE 200 MG/ML INTRAMUSCULAR SOLUTION as directed DEPO-TESTOSTERONE 200 MG/ML INTRAMUSCULAR SOLUTION 3571168 RUFINO TOSTERONE CYPIONATE Inactive NAPROXEN 500 MG ORAL TABLET 1 tablet by mouth twice daily NAPROXEN 500 MG ORAL TABLET 097864 NAPROXEN Inactive GABAPENTIN 300 MG ORAL CAPSULE 1 po qd x 2 days, then 1 po BID x 2 days, then 1 po TID GABAPENTIN 300 MG ORAL CAPSULE 601025 GABAP ENTIN Inactive ONETOUCH ULTRA BLUE IN VITRO STRIP Test twice a day 07/11/11 ONETOUCH ULTRA BLUE IN VITRO STRIP GLUCOSE BLOOD Inact amie NAPROXEN SODIUM 220 MG ORAL TABLET 1 three times a day as needed NAPROXEN SODIUM 220 MG ORAL TABLET 551173 NAPROXEN SODI UM Inactive TOUJEO SOLOSTAR 300 UNIT/ML SUBCUTANEOUS SOLUTION PEN- INJECTOR 10 units SC daily TOUJEO SOLOSTAR 300 UNIT/ML SUBCUTANEOUS SOLUTION PEN-INJECTOR INSULIN GLARGINE Inactive SUCRALFATE 1 GM ORAL TABLET 1 four times a day to coat the stoma ch SUCRALFATE 1 GM ORAL TABLET 858309 SUCRALFATE Inac tive GABAPENTIN 300 MG ORAL CAPSULE 1 three times a day 201 12/03/26 GABAPENTIN 300 MG ORAL CAPSULE 193745 GABAPENTIN Inactive TRAMADOL HCL 50 MG ORAL TABLET 1 twice a day as needed for pain TRAMADOL HCL 50 MG ORAL TABLET 407174 TRAMADOL HCL I nactive ZITHROMAX Z-ISAIAS 250 MG ORAL TABLET Take two tablets to day and then 1 tablet daily for 4 days ZITHROMAX Z-ISAIAS 250 MG ORAL TAB LET 491835 AZITHROMYCIN Inactive Immunizations Vaccine Administration Date Value Standard Floyd cription influenza immunization (Flu Vax) has been administered 05/11 Done according to patient influenza virus vaccine, unspecified for mulation pneumococcal immunization administered Pneumovax 23 [CVX33] pneumococcal polysaccharide vaccine, 23 valent Seasonal influenza vaccine, injectable, containing preservative, for > 3 years old (Afluria, FluLaval, Fluzone, Fluvirin, Fluarix, Agriflu(>= 18 yo)) Fluzone (>3 yrs.) [QTX028] Influenza, seasonal, inject able Seasonal influenza vaccine, injectable, containing preservative, for > 3 years old (Afluria, FluLaval, Fluzone, Fluvirin, Fluarix, Agriflu(>= 18 yo)) Fluzone (>3 yrs.) [UOV789] Influenza, seasonal, inject able Vital Signs Date [...] - Chem istry sodium, serum 139 mmol/L 789-889 4084/06/26 potassium, serum 4.8 mmol/L 3.5-5.2 chloride, serum 102 mmol/L 98-107 carbon dioxide, venous blood 29.1 mmol/L 21.0-32 .0 blood glucose 179 mg/dL 65-95 calcium, serum 9.7 mg/dL 8.5-10.1 urea nitrogen, blood 31 mg/dL 7-18 creatinine, serum 1.97 mg/dL 0.60-1.30 sodium, serum 136 mmol/L 758-526 0755/06/04 potassium, serum 4.9 mmol/L 3.5-5.2 chloride, serum [...] 0.40 mg/dL 0.00-1.00 cholesterol, serum 218 mg/dL 351-880 4719/12/18 triglyceride, serum, fasting 357 mg/dL 30-200 HDL cholesterol, serum 49 mg/dL 32-60 LDL cholesterol, serum 103.00 mg/dL 5.00-130.00 hemoglobin A1C, blood, as % of total hemoglobin 8.5 % 4.3-6.0 sodium, serum 142 mmol/L 753-418 0354/12/18 carbon dioxide, venous blood 32.5 mmol/L 21.0-32 [...] 0.36-3.74 Encounters Code Encounter Date Provider Facility CPT-64408 [id number] Vst-Est Level IV 15:14:58 CDT Charlie Childers MD [facility] CPT-16482 [id number] Vst-Est Level IV 15:12:52 HOME ADMINISTRATOR Charlie Childers MD [facility] CPT-52729 [id number] Vst-Est Level IV 15:30:55 HOME ADMINISTRATOR Charlie Childers MD [facility] CPT-05822 [id number] Vst-Est Level IV 13:49:06 C ELIOT Martinez PA-C [facility] CPT-16590 Level 4 Est. Patient 17:26:08 CDT Ann trujillo PA-C [facility] CPT-03278 46184-Lar Vst-Est Level V 14:26:27 CDT Aneudy Childers MD [facility]-84029 Level 4 Est. Patient 17:05:37 CDT Baltazar Childers MD [facility]-99565 Level 4 Est. Patient 16:21:19 HOME ADMINISTRATOR Baltazar Childers MD [facility]-76860 Level 4 Est. Patient 12:25:11 CDT Baltazar Childers MD [facility]-52053 Level 4 Est. Patient 14:22:31 CDT Baltazar Childers MD [facility]-98141 Level 4 Est. Patient 15:44:38 [facility] Patient 11:34:17 CDT Baltazar Childers MD [facility]-14759 Level 3 Est. Patient 16:40:40 CDT Baltazar Childers MD [facility]-07669 Level 4 Est. Patient 10:41:24 CDT Baltazar Childers MD [facility]-11188 Level 4 Est. Patient 16:01:48 CDT Baltazar Childers MD [facility]-00716 Level 4 Est. Patient 16:54:07 HOME ADMINISTRATOR Baltazar Childers MD [facility]-29926 Level 4 Est. Patient 15:42:12 CDT Baltazar Childers MD [facility]-11550 Level 4 Est. Patient 11:29:55 CDT Baltazar Childers MD [facility] CPT-94486 Level 4 Est. Patient 14:15:19 CDT Baltazar Childers MD [facility]-70681 Level 4 Est. Patient 12:20:13 CDT Baltazar Childers MD [facility]-81878 Level 4 Est. Patient 14:52:45 HOME ADMINISTRATOR Baltazar Childers MD [facility] CPT-54943 Level 4 Est. Patient 14:18:34 HOME ADMINISTRATOR Baltazar Childers MD [facility] CPT-07848 Level 4 Est. Patient 15:18:29 CDT Baltazar Childers MD [facility] CPT-20616 Level 3 Est. Patient 12:45:34 CDT Baltazar Childers MD [facility] CPT-03601 Level 3 Est. Patient 10:10:11 CDT Baltazar Childers MD [facility] CPT-71612 Level 3 Est. Patient 14:07:50 CDT Baltazar Childers MD [facility] CPT-66920 Level 4 Est. Patient 12:26:10 HOME ADMINISTRATOR Baltazar Childers MD [facility] CPT-88763 Level 4 Est. Patient 14:45:38 CDT Baltazar Childers MD [facility] CPT-33898 Level 4 New Patient 12:30:48 CDT Baltazar hinton MD [facility] Procedures Code Procedure Name Date Entry Date Standard Desc ription CPT-000 Give Appropriate Flu Vaccine 12:25:14 CDT 2 CPT-19298 First Vx - Ix admin via ID I M or jet injects without counseling by physician 13:08:59 CDT CPT-94252 Fluzone Quadrivalent Intramuscular Suspe nsion 0.5 ML 13:08:59 CDT CPT-04086 Venipuncture Draw Fee 12:04:12 CDT CPT-50283 Lipid - LAB USE ONLY 17:39:15 HOME ADMINISTRATOR 9 CPT-96901 HGBA1C - LAB USE ONLY 17:39:15 HOME ADMINISTRATOR CPT-39148 CMP - LAB USE ONLY 17:39:14 HOME ADMINISTRATOR CPT-10851 Venipuncture Draw Fee 17:39:14 HOME ADMINISTRATOR CPT-71022 First Vx - Ix admin via ID I M or jet injects without counseling by physician 16:55:17 HOME ADMINISTRATOR CPT-05600 Fluzone Quadrivalent Intramuscular Suspe nsion 0.5 ML 16:55:17 HOME ADMINISTRATOR CPT-52991 Renal Panel - LAB USE ONLY 17:39:20 CDT 201 10/31/07 CPT-66032 CBC - LAB USE ONLY 17:39:20 CDT CPT-88348 Venipuncture Draw Fee 17:39:20 CDT CPT-27063 Venipuncture Draw Fee 14:33:30 CDT CPT-37040 Renal Panel - LAB USE ONLY 14:33:30 CDT 201 10/31/07 CPT-66604 CBC - LAB USE ONLY 14:33:29 CDT CPT-14012 Venipuncture Draw Fee 14:50:21 HOME ADMINISTRATOR CPT-02375 Immunization Single Admin 17:35:35 CDT 2014 CPT-97006 Fluzone Quadrivalent preservative free ( >=3yrs.) 17:35:35 CDT CPT-33864 Venipuncture Draw Fee 12:10:27 HOME ADMINISTRATOR CPT-94900 Fluzone Quadrivalent Intramuscular Suspe nsion 0.5 ML 10:49:13 CDT CPT-42332 First Vx Component - Ix admi n via ID IM or jet inj without physician counseling 15:17:19 HOME ADMINISTRATOR CPT-80228 Pneumovax 23 15:17:19 HOME ADMINISTRATOR CPT-01500 Pneumovax 14:52:45 HOME ADMINISTRATOR CPT-40869 Venipuncture Draw Fee 14:06:30 HOME ADMINISTRATOR CPT-000 Give Appropriate Flu Vaccine 14:18:34 HOME ADMINISTRATOR 2 CPT-91043 Administration single or combination vac cine inc oral 14:46:00 HOME ADMINISTRATOR CPT-93051 Influenza split virus > age 3 14:46:00 HOME ADMINISTRATOR CPT-OV Office Visit 19:13:16 CDT CPT-93543 Zostavax 18:41:56 CDT CPT-33967 Administration single or combination vac cine inc oral 12:56:39 CDT CPT-78278 Zoster Vaccine (Zostavax) 12:56:39 CDT 2012 CPT-80147 Venipuncture Draw Fee 10:58:57 CDT CPT-04241 Sono pelvis non OB uterus ovaries cervix 17:45:04 CDT CPT-71814 Sono retroperitoneal complete kidneys an d bladder 17:14:36 CDT CPT-OV Office Visit 14:59:38 HOME ADMINISTRATOR CPT-J1070 Depo Testosterone 100 mg 14:50:13 CDT 03/05 CPT-84728 Abx/Therapy Injection 14:50:13 CDT CPT-93628 Administration single or combination vac cine inc oral 14:34:43 CDT CPT-32824 Influenza split virus > age 3 14:34:43 CDT CPT-J1070 Depo Testosterone 100 mg 17:37:13 CDT 01/11 CPT-78407 Abx/Therapy Injection 17:37:13 CDT CPT-49484 Venipuncture Draw Fee 16:30:13 CDT CPT-05397 Venipuncture Draw Fee 16:29:43 CDT CPT-J1070 Depo Testosterone 100 mg 14:45:38 CDT 01/11
--- OUTSIDE RECORDS SUMMARY | 2019-10-27 11:44 | XMS REPORT | Clinical Summary ---
Author Author Admin, Elba Lance Bluenote Address Unknown Phone Unavailable Allergies, Adverse Reactions, [...] ronary atherosclerosis of unspecified type of vessel, tetlin or graft OTH NONSPC ABN FINDNG RAD&OTH [...] INJECTOR 33 units SC daily INSULIN GLARGINE 42812319649 Active Baltazar Childers MD Active TRAMADOL HCL 50 MG ORAL TABLET 1 twice a day as needed for pain TRAMADOL HCL 74426385991 No Longer Active Baltazar Childers MD Active ROBAXIN 500 MG ORAL TABLET Take 1.5 (one and one half) tabs once daily METHOCARBAMOL 00763840816 Active Baltazar Childers MD Active SYNTHROID 112 MCG ORAL TABLET Take one tablet a day LEVOTHYROXINE SODIUM 80133293916 Active Baltazar Childers MD Active TRUE METRIX AIR GLUCOSE METER DEVICE Use as directed BLOOD GLUCOSE MONITORING SUPPL 83761898689 Active Baltazar Childers MD Activ e TRUE METRIX BLOOD GLUCOSE TEST IN VITRO STRIP test blood sug ar BID Dx: E11.65 GLUCOSE BLOOD 20208462097 Active KENDALL Juarez Active NORTRIPTYLINE HCL 50 MG ORAL CAPSULE 1 twice a day for neuropathy 2 NORTRIPTYLINE HCL 39181088122 Active Baltazar Childers MD Acti ve ASPIRIN 81 MG TBEC Take one (1) tablet by mouth daily ASPIRIN 33715785771 Active Baltazar Childers MD Active GABAPENTIN 300 MG ORAL CAPSULE 1 three times a day 201 12/03/26 GABAPENTIN 77876277364 No Longer Active Baltazar Childers MD Activ e LISINOPRIL 20 MG ORAL TABLET 1 tablet by mouth daily at night 2016 LISINOPRIL 22497744347 Active Baltazar Childers MD Active ZITHROMAX Z-ISAIAS 250 MG ORAL TABLET Take two tablets to day and then 1 tablet daily for 4 days AZITHROMYCIN 21206546542 No Longer A ctive Baltazar Childers MD Active AMLODIPINE BESYLATE 5 MG ORAL TABLET 1 tab daily for HTN AMLODIPINE BESYLATE 92946009059 Active Baltazar Childers MD Active GLIPIZIDE 10 MG ORAL TABLET take 2 tablets twice daily GLIPIZIDE 57875993074 Active Baltazar Childers MD Active SUCRALFATE 1 GM ORAL TABLET 1 four times a day to coat the stoma ch SUCRALFATE 96246915312 No Longer Active Baltazar Childers MD Active PEN NEEDLES 31G X 6 MM use 1 daily INSULIN PEN NE EDLE 83914973225 Active KENDALL Juarez Active TOZULEIKA SOLOSTAR 300 UNIT/ML SUBCUTANEOUS SOLUTION PEN- INJECTOR 10 units SC daily INSULIN GLARGINE 93641507949 No Longer Active Rola ARGUETA Active NAPROXEN SODIUM 220 MG ORAL TABLET 1 three times a day as needed NAPROXEN SODIUM 92175140951 No Longer Active Baltazar Childers MD Active ATORVASTATIN CALCIUM 20 MG ORAL TABLET Take 1 tab daily ATORVASTATIN CALCIUM 40446192826 Active Baltazar Childers MD A ctive FUROSEMIDE 40 MG ORAL TABLET Take one by mouth daily FUROSEMIDE 06810961682 Active Baltazar Childers MD Active LISINOPRIL 20 MG ORAL TABLET Take one by mouth daily at bedtime LISINOPRIL 81133367469 No Longer Active Baltazar Childers MD Active ONETOUCH ULTRA BLUE IN VITRO STRIP Test twice a day 07/11/11 GLUCOSE BLOOD 78429236557 No Longer Active Baltazar Childers MD Acti ve TRUEPLUS LANCETS 33G Test twice a day LANCETS 9950139 9626 Active KENDALL Juarez Active TRUEDRAW LANCING DEVICE Test twice a day LANCET DEVICES 17810583051 Active Baltazar Childers MD Active TRUETRACK BLOOD GLUCOSE w/Device KIT Test twice a day BLOOD GLUCOSE MONITORING SUPPL 49024400228 Active Baltazar Childers MD Activ e HYDROCODONE-ACETAMINOPHEN 7.5-325 MG ORAL TABLET Take 1 tab every 6-8 hours PRN HYDROCODONE-ACETAMINOPHEN 71109941206 Active Baltazar Nickerson MD Active GABAPENTIN 300 MG ORAL CAPSULE 1 po qd x 2 days, then 1 po BID x 2 days, then 1 po TID GABAPENTIN 76548139106 No Longer Active Baltazar Childers MD Active NAPROXEN 500 MG ORAL TABLET 1 tablet by mouth twice daily NAPROXEN 07727834875 No Longer Active Baltazar Childers MD Active PROAIR HFA 108 (90 Base) MCG/ACT INHALATION AEROSOL SO LUTION 2 puffs four times a day as needed ALBUTEROL SULFATE 75887133683 Active Shun Arellano LPN Active DEPO-TESTOSTERONE 200 MG/ML INTRAMUSCULAR SOLUTION as directed TESTOSTERONE CYPIONATE 04912134921 No Longer Active Baltazar Childers MD Active LIPITOR 20 MG ORAL TABLET Take one by mouth daily in evening ATORVASTATIN CALCIUM 65683107109 No Longer Active Baltazar Childers MD Active CRESTOR 10 MG ORAL TABLET 1 by mouth every day ROSUVASTATIN CALCIUM 15677662411 No Longer Active Baltazar Childers MD Active PHENTERMINE HCL 37.5 MG ORAL TABLET Take one by mouth daily PHENTERMINE HCL 33166743411 No Longer Active Baltazar Childers MD Ac tive TIZANIDINE HCL 4 MG ORAL TABLET 1 daily as needed for muscle spa sm TIZANIDINE HCL 60139086257 No Longer Active Dawna Salazar RN Active [id number] 50-325-40 MG ORAL TABLET 1 fo ur times a day as needed for heacache [id number] 15360229943 Active Beth Carr, RMA Active SUMATRIPTAN SUCCINATE 100 MG ORAL TABLET 1 tablet by m outh at onset of migraine as needed SUMATRIPTAN SUCCINATE 44481753954 Active Baltazar Nickerson MD Active LORATADINE 10 MG ORAL TABLET Take one by mouth daily LORATADINE 34811788380 Active Baltazar Childers MD Active OMEPRAZOLE 20 MG ORAL CAPSULE DELAYED RELEASE Take one by mouth jostin ly OMEPRAZOLE 03473001794 Active Baltazar Childers MD Active HYDROXYZINE HCL 25 MG ORAL TABLET Take one by mouth daily HYDROXYZINE HCL 50208178278 Active Baltazar Childers MD Active ALPRAZOLAM 1 MG ORAL TABLET 1 tablet [facility] ALPR[facility]AM 51374125692 Active Baltazar Childers MD Active METFORMIN HCL 1000 MG ORAL TABLET Take one by mouth twice daily METFORMIN HCL 14121323922 Active Baltazar Childers MD Active TIZANIDINE HCL 4 MG ORAL TABLET 1 daily as needed for muscle spa sm TIZANIDINE HCL 4 MG ORAL TABLET 446915 TIZANIDINE HCL Inactive PHENTERMINE HCL 37.5 MG ORAL TABLET Take one by mouth daily PHENTERMINE HCL 37.5 MG ORAL TABLET 636017 PHENTERMINE HCL Inac tive CRESTOR 10 MG ORAL TABLET 1 by mouth every day CRESTOR 10 MG ORAL TABLET 376851 ROSUVASTATIN CALCIUM Inactive LIPITOR 20 MG ORAL TABLET Take one by mouth daily in evening LIPITOR 20 MG ORAL TABLET 221280 ATORVASTATIN CALCIUM Inactive DEPO-TESTOSTERONE 200 MG/ML INTRAMUSCULAR SOLUTION as directed DEPO-TESTOSTERONE 200 MG/ML INTRAMUSCULAR SOLUTION 8950514 RUFINO TOSTERONE CYPIONATE Inactive NAPROXEN 500 MG ORAL TABLET 1 tablet by mouth twice daily NAPROXEN 500 MG ORAL TABLET 430172 NAPROXEN Inactive GABAPENTIN 300 MG ORAL CAPSULE 1 po qd x 2 days, then 1 po BID x 2 days, then 1 po TID GABAPENTIN 300 MG ORAL CAPSULE 853707 GABAP ENTIN Inactive ONETOUCH ULTRA BLUE IN VITRO STRIP Test twice a day 07/11/11 ONETOUCH ULTRA BLUE IN VITRO STRIP GLUCOSE BLOOD Inact amie NAPROXEN SODIUM 220 MG ORAL TABLET 1 three times a day as needed NAPROXEN SODIUM 220 MG ORAL TABLET 806742 NAPROXEN SODI UM Inactive TOUJEO SOLOSTAR 300 UNIT/ML SUBCUTANEOUS SOLUTION PEN- INJECTOR 10 units SC daily TOUJEO SOLOSTAR 300 UNIT/ML SUBCUTANEOUS SOLUTION PEN-INJECTOR INSULIN GLARGINE Inactive SUCRALFATE 1 GM ORAL TABLET 1 four times a day to coat the stoma ch SUCRALFATE 1 GM ORAL TABLET 325280 SUCRALFATE Inac tive GABAPENTIN 300 MG ORAL CAPSULE 1 three times a day 201 12/03/26 GABAPENTIN 300 MG ORAL CAPSULE 442977 GABAPENTIN Inactive TRAMADOL HCL 50 MG ORAL TABLET 1 twice a day as needed for pain TRAMADOL HCL 50 MG ORAL TABLET 302179 TRAMADOL HCL I nactive ZITHROMAX Z-ISAIAS 250 MG ORAL TABLET Take two tablets to day and then 1 tablet daily for 4 days ZITHROMAX Z-ISAIAS 250 MG ORAL TAB LET 384528 AZITHROMYCIN Inactive Immunizations Vaccine Administration Date Value Standard Floyd cription influenza immunization (Flu Vax) has been administered 05/11 Done according to patient influenza virus vaccine, unspecified for mulation pneumococcal immunization administered Pneumovax 23 [CVX33] pneumococcal polysaccharide vaccine, 23 valent Seasonal influenza vaccine, injectable, containing preservative, for > 3 years old (Afluria, FluLaval, Fluzone, Fluvirin, Fluarix, Agriflu(>= 18 yo)) Fluzone (>3 yrs.) [JMV028] Influenza, seasonal, inject able Seasonal influenza vaccine, injectable, containing preservative, for > 3 years old (Afluria, FluLaval, Fluzone, Fluvirin, Fluarix, Agriflu(>= 18 yo)) Fluzone (>3 yrs.) [TLQ189] Influenza, seasonal, inject able Vital Signs Date [...] - Chem istry sodium, serum 139 mmol/L 030-737 7425/06/26 potassium, serum 4.8 mmol/L 3.5-5.2 chloride, serum 102 mmol/L 98-107 carbon dioxide, venous blood 29.1 mmol/L 21.0-32 .0 blood glucose 179 mg/dL 65-95 calcium, serum 9.7 mg/dL 8.5-10.1 urea nitrogen, blood 31 mg/dL 7-18 creatinine, serum 1.97 mg/dL 0.60-1.30 sodium, serum 136 mmol/L 763-708 8050/06/04 potassium, serum 4.9 mmol/L 3.5-5.2 chloride, serum [...] 0.40 mg/dL 0.00-1.00 cholesterol, serum 218 mg/dL 921-949 5072/12/18 triglyceride, serum, fasting 357 mg/dL 30-200 HDL cholesterol, serum 49 mg/dL 32-60 LDL cholesterol, serum 103.00 mg/dL 5.00-130.00 hemoglobin A1C, blood, as % of total hemoglobin 8.5 % 4.3-6.0 sodium, serum 142 mmol/L 633-828 7063/12/18 carbon dioxide, venous blood 32.5 mmol/L 21.0-32 [...] 0.36-3.74 Encounters Code Encounter Date Provider Facility CPT-68624 [id number] Vst-Est Level IV 15:14:58 CDT Charlie Childers MD [facility] CPT-18694 [id number] Vst-Est Level IV 15:12:52 STOCK SHIPPER Charlie Childers MD [facility] CPT-96514 [id number] Vst-Est Level IV 15:30:55 STOCK SHIPPER Charlie Childers MD [facility] CPT-14337 [id number] Vst-Est Level IV 13:49:06 C ELIOT Martinez PA-C [facility] CPT-06264 Level 4 Est. Patient 17:26:08 CDT Ann trujillo PA-C [facility] CPT-10511 [id number] Vst-Est Level V 14:26:27 CDT Aneudy Childers MD [facility]-69351 Level 4 Est. Patient 17:05:37 CDT Baltazar Childers MD [facility]-17720 Level 4 Est. Patient 16:21:19 STOCK SHIPPER Baltazar Childers MD [facility]-31012 Level 4 Est. Patient 12:25:11 CDT Baltazar Childers MD [facility]-61461 Level 4 Est. Patient 14:22:31 CDT Baltazar Childers MD [facility]-58119 Level 4 Est. Patient 15:44:38 CDT [facility] 4 Est. Patient 11:34:17 CDT Baltazar Childers MD [facility]-78510 Level 3 Est. Patient 16:40:40 CDT Baltazar Childers MD [facility]-55559 Level 4 Est. Patient 10:41:24 CDT Baltazar Childers MD [facility]-76125 Level 4 Est. Patient 16:01:48 CDT Baltazar Childers MD [facility]-59762 Level 4 Est. Patient 16:54:07 STOCK SHIPPER Baltazar Childers MD [facility]-29367 Level 4 Est. Patient 15:42:12 CDT Baltazar Childers MD [facility]-34188 Level 4 Est. Patient 11:29:55 CDT Baltazar Childers MD [facility] CPT-26179 Level 4 Est. Patient 14:15:19 CDT Baltazar Childers MD [facility]-52417 Level 4 Est. Patient 12:20:13 CDT Baltazar Childers MD [facility]-29709 Level 4 Est. Patient 14:52:45 STOCK SHIPPER Baltazar Childers MD [facility] CPT-90803 Level 4 Est. Patient 14:18:34 STOCK SHIPPER Baltazar Childers MD [facility] CPT-07733 Level 4 Est. Patient 15:18:29 CDT Baltazar Childers MD [facility] CPT-65825 Level 3 Est. Patient 12:45:34 CDT Baltazar Childers MD [facility] CPT-32644 Level 3 Est. Patient 10:10:11 CDT Baltazar Childers MD [facility] CPT-42293 Level 3 Est. Patient 14:07:50 CDT Baltazar Childers MD [facility] CPT-30973 Level 4 Est. Patient 12:26:10 STOCK SHIPPER Baltazar Childers MD [facility] CPT-46653 Level 4 Est. Patient 14:45:38 CDT Blatazar Childers MD [facility] CPT-25317 Level 4 New Patient 12:30:48 CDT Baltazar hinton MD [facility] Procedures Code Procedure Name Date Entry Date Standard Desc ription CPT-000 Give Appropriate Flu Vaccine 12:25:14 CDT 2 CPT-98440 First Vx - Ix admin via ID I M or jet injects without counseling by physician 13:08:59 CDT CPT-70612 Fluzone Quadrivalent Intramuscular Suspe nsion 0.5 ML 13:08:59 CDT CPT-95222 Venipuncture Draw Fee 12:04:12 CDT CPT-99613 Lipid - LAB USE ONLY 17:39:15 STOCK SHIPPER 9 CPT-47474 HGBA1C - LAB USE ONLY 17:39:15 STOCK SHIPPER CPT-21311 CMP - LAB USE ONLY 17:39:14 STOCK SHIPPER CPT-66793 Venipuncture Draw Fee 17:39:14 STOCK SHIPPER CPT-12539 First Vx - Ix admin via ID I M or jet injects without counseling by physician 16:55:17 STOCK SHIPPER CPT-99941 Fluzone Quadrivalent Intramuscular Suspe nsion 0.5 ML 16:55:17 STOCK SHIPPER CPT-48225 Renal Panel - LAB USE ONLY 17:39:20 CDT 201 10/31/07 CPT-55290 CBC - LAB USE ONLY 17:39:20 CDT CPT-02132 Venipuncture Draw Fee 17:39:20 CDT CPT-25412 Venipuncture Draw Fee 14:33:30 CDT CPT-47516 Renal Panel - LAB USE ONLY 14:33:30 CDT 201 10/31/07 CPT-58403 CBC - LAB USE ONLY 14:33:29 CDT CPT-54781 Venipuncture Draw Fee 14:50:21 STOCK SHIPPER CPT-92755 Immunization Single Admin 17:35:35 CDT 2014 CPT-91340 Fluzone Quadrivalent preservative free ( >=3yrs.) 17:35:35 CDT CPT-19777 Venipuncture Draw Fee 12:10:27 STOCK SHIPPER CPT-07134 Fluzone Quadrivalent Intramuscular Suspe nsion 0.5 ML 10:49:13 CDT CPT-99569 First Vx Component - Ix admi n via ID IM or jet inj without physician counseling 15:17:19 STOCK SHIPPER CPT-87540 Pneumovax 23 15:17:19 STOCK SHIPPER CPT-94758 Pneumovax 14:52:45 STOCK SHIPPER CPT-88331 Venipuncture Draw Fee 14:06:30 STOCK SHIPPER CPT-000 Give Appropriate Flu Vaccine 14:18:34 STOCK SHIPPER 2 CPT-49782 Administration single or combination vac cine inc oral 14:46:00 STOCK SHIPPER CPT-81326 Influenza split virus > age 3 14:46:00 STOCK SHIPPER CPT-OV Office Visit 19:13:16 CDT CPT-24488 Zostavax 18:41:56 CDT CPT-93480 Administration single or combination vac cine inc oral 12:56:39 CDT CPT-24888 Zoster Vaccine (Zostavax) 12:56:39 CDT 2012 CPT-92659 Venipuncture Draw Fee 10:58:57 CDT CPT-89305 Sono pelvis non OB uterus ovaries cervix 17:45:04 CDT CPT-27392 Sono retroperitoneal complete kidneys an d bladder 17:14:36 CDT CPT-OV Office Visit 14:59:38 STOCK SHIPPER CPT-J1070 Depo Testosterone 100 mg 14:50:13 CDT 03/05 CPT-05352 Abx/Therapy Injection 14:50:13 CDT CPT-09575 Administration single or combination vac cine inc oral 14:34:43 CDT CPT-36682 Influenza split virus > age 3 14:34:43 CDT CPT-J1070 Depo Testosterone 100 mg 17:37:13 CDT 01/11 CPT-21938 Abx/Therapy Injection 17:37:13 CDT CPT-24274 Venipuncture Draw Fee 16:30:13 CDT CPT-27226 Venipuncture Draw Fee 16:29:43 CDT CPT-J1070 Depo Testosterone 100 mg 14:45:38 CDT 01/11
--- OUTSIDE RECORDS SUMMARY | 2019-10-27 11:44 | XMS REPORT | Clinical Summary ---
Author Author Admin, Elba Lance [facility] Address Unknown Phone Unavailable Allergies, Adverse Reactions, [...] mention of hyperactivity DECREASED LIBIDO 799.81 Active Baltaazr Wayne Decreased libido COLON POLYPS 211.3 Resolved [...] ronary atherosclerosis of unspecified type of vessel, [place] or graft OTH NONSPC ABN FINDNG RAD&OTH [...] INJECTOR 33 units SC daily INSULIN GLARGINE 14975517424 Active Baltazar Childers MD Active TRAMADOL HCL 50 MG ORAL TABLET 1 twice a day as needed for pain TRAMADOL HCL 35635212405 No Longer Active Baltazar Childers MD Active ROBAXIN 500 MG ORAL TABLET Take 1.5 (one and one half) tabs once daily METHOCARBAMOL 22881197833 Active Baltazar Childers MD Active SYNTHROID 112 MCG ORAL TABLET Take one tablet a day LEVOTHYROXINE SODIUM 34234786897 Active Baltazar Childers MD Active TRUE METRIX AIR GLUCOSE METER DEVICE Use as directed BLOOD GLUCOSE MONITORING SUPPL 75552424462 Active Baltazar Childers MD Activ e TRUE METRIX BLOOD GLUCOSE TEST IN VITRO STRIP test blood sug ar BID Dx: E11.65 GLUCOSE BLOOD 84824662445 Active KENDALL Juarez Active NORTRIPTYLINE HCL 50 MG ORAL CAPSULE 1 twice a day for neuropathy 2 NORTRIPTYLINE HCL 14523495956 Active Baltazar Childers MD Acti ve ASPIRIN 81 MG TBEC Take one (1) tablet by mouth daily ASPIRIN 90536931636 Active Baltazar Childers MD Active GABAPENTIN 300 MG ORAL CAPSULE 1 three times a day 201 12/03/26 GABAPENTIN 71271992772 No Longer Active Baltazar Childers MD Activ e LISINOPRIL 20 MG ORAL TABLET 1 tablet by mouth daily at night 2016 LISINOPRIL 28397776373 Active Baltazar Childers MD Active ZITHROMAX Z-ISAIAS 250 MG ORAL TABLET Take two tablets to day and then 1 tablet daily for 4 days AZITHROMYCIN 78784392866 No Longer A ctive Baltazar Childers MD Active AMLODIPINE BESYLATE 5 MG ORAL TABLET 1 tab daily for HTN AMLODIPINE BESYLATE 30074240069 Active Baltazar Childers MD Active GLIPIZIDE 10 MG ORAL TABLET take 2 tablets twice daily GLIPIZIDE 66006249620 Active Baltazar Childers MD Active SUCRALFATE 1 GM ORAL TABLET 1 four times a day to coat the stoma ch SUCRALFATE 06893802077 No Longer Active Baltazar Childers MD Active PEN NEEDLES 31G X 6 MM use 1 daily INSULIN PEN NE EDLE 18182431416 Active KENDALL Juarez Active TOZULEIKA SOLOSTAR 300 UNIT/ML SUBCUTANEOUS SOLUTION PEN- INJECTOR 10 units SC daily INSULIN GLARGINE 92399388579 No Longer Active Rola ARGUETA Active NAPROXEN SODIUM 220 MG ORAL TABLET 1 three times a day as needed NAPROXEN SODIUM 61633079351 No Longer Active Baltazar Childers MD Active ATORVASTATIN CALCIUM 20 MG ORAL TABLET Take 1 tab daily ATORVASTATIN CALCIUM 23763232857 Active Baltazar Childers MD A ctive FUROSEMIDE 40 MG ORAL TABLET Take one by mouth daily FUROSEMIDE 82314530702 Active Baltazar Childers MD Active LISINOPRIL 20 MG ORAL TABLET Take one by mouth daily at bedtime LISINOPRIL 51660042934 No Longer Active Baltazar Childers MD Active ONETOUCH ULTRA BLUE IN VITRO STRIP Test twice a day 07/11/11 GLUCOSE BLOOD 82519060771 No Longer Active Baltazar Childers MD Acti ve TRUEPLUS LANCETS 33G Test twice a day LANCETS 7459163 6285 Active KENDALL Juarez Active TRUEDRAW LANCING DEVICE Test twice a day LANCET DEVICES 62283841730 Active Baltazar Childers MD Active TRUETRACK BLOOD GLUCOSE w/Device KIT Test twice a day BLOOD GLUCOSE MONITORING SUPPL 91925315710 Active Baltazar Childers MD Activ e HYDROCODONE-ACETAMINOPHEN 7.5-325 MG ORAL TABLET Take 1 tab every 6-8 hours PRN HYDROCODONE-ACETAMINOPHEN 10448672183 Active Baltazar Nickerson MD Active GABAPENTIN 300 MG ORAL CAPSULE 1 po qd x 2 days, then 1 po BID x 2 days, then 1 po TID GABAPENTIN 72160530341 No Longer Active Baltazar Childers MD Active NAPROXEN 500 MG ORAL TABLET 1 tablet by mouth twice daily NAPROXEN 68404985724 No Longer Active Baltazar Childers MD Active PROAIR HFA 108 (90 Base) MCG/ACT INHALATION AEROSOL SO LUTION 2 puffs four times a day as needed ALBUTEROL SULFATE 08857148335 Active Shun Arellano LPN Active DEPO-TESTOSTERONE 200 MG/ML INTRAMUSCULAR SOLUTION as directed TESTOSTERONE CYPIONATE 79770932667 No Longer Active Baltazar Childers MD Active LIPITOR 20 MG ORAL TABLET Take one by mouth daily in evening ATORVASTATIN CALCIUM 69685581015 No Longer Active Baltazar Childers MD Active CRESTOR 10 MG ORAL TABLET 1 by mouth every day ROSUVASTATIN CALCIUM 37548575145 No Longer Active Baltazar Childers MD Active PHENTERMINE HCL 37.5 MG ORAL TABLET Take one by mouth daily PHENTERMINE HCL 82252376370 No Longer Active Baltazar Childers MD Ac tive TIZANIDINE HCL 4 MG ORAL TABLET 1 daily as needed for muscle spa sm TIZANIDINE HCL 58700250001 No Longer Active Dawna Salazar RN Active [id number] 50-325-40 MG ORAL TABLET 1 fo ur times a day as needed for heacache [id number] 17044628377 Active Beth Carr, RMA Active SUMATRIPTAN SUCCINATE 100 MG ORAL TABLET 1 tablet by m outh at onset of migraine as needed SUMATRIPTAN SUCCINATE 36386167610 Active Baltazar Nickerson MD Active LORATADINE 10 MG ORAL TABLET Take one by mouth daily LORATADINE 16633161194 Active Baltazar Childers MD Active OMEPRAZOLE 20 MG ORAL CAPSULE DELAYED RELEASE Take one by mouth jostin ly OMEPRAZOLE 38194140484 Active Baltazar Childers MD Active HYDROXYZINE HCL 25 MG ORAL TABLET Take one by mouth daily HYDROXYZINE HCL 35144434863 Active Baltazar Childers MD Active ALPRAZOLAM 1 MG ORAL TABLET 1 tablet by [facility] ALPRAZOLAM 43774106668 Active Baltazar Childers MD Active METFORMIN HCL 1000 MG ORAL TABLET Take one by mouth twice daily METFORMIN HCL 44519013157 Active Baltazar Childers MD Active TIZANIDINE HCL 4 MG ORAL TABLET 1 daily as needed for muscle spa sm TIZANIDINE HCL 4 MG ORAL TABLET 587229 TIZANIDINE HCL Inactive PHENTERMINE HCL 37.5 MG ORAL TABLET Take one by mouth daily PHENTERMINE HCL 37.5 MG ORAL TABLET 940276 PHENTERMINE HCL Inac tive CRESTOR 10 MG ORAL TABLET 1 by mouth every day CRESTOR 10 MG ORAL TABLET 655338 ROSUVASTATIN CALCIUM Inactive LIPITOR 20 MG ORAL TABLET Take one by mouth daily in evening LIPITOR 20 MG ORAL TABLET 815729 ATORVASTATIN CALCIUM Inactive DEPO-TESTOSTERONE 200 MG/ML INTRAMUSCULAR SOLUTION as directed DEPO-TESTOSTERONE 200 MG/ML INTRAMUSCULAR SOLUTION 4949401 RUFINO TOSTERONE CYPIONATE Inactive NAPROXEN 500 MG ORAL TABLET 1 tablet by mouth twice daily NAPROXEN 500 MG ORAL TABLET 960495 NAPROXEN Inactive GABAPENTIN 300 MG ORAL CAPSULE 1 po qd x 2 days, then 1 po BID x 2 days, then 1 po TID GABAPENTIN 300 MG ORAL CAPSULE 669695 GABAP ENTIN Inactive ONETOUCH ULTRA BLUE IN VITRO STRIP Test twice a day 07/11/11 ONETOUCH ULTRA BLUE IN VITRO STRIP GLUCOSE BLOOD Inact amie NAPROXEN SODIUM 220 MG ORAL TABLET 1 three times a day as needed NAPROXEN SODIUM 220 MG ORAL TABLET 044030 NAPROXEN SODI UM Inactive TOUJEO SOLOSTAR 300 UNIT/ML SUBCUTANEOUS SOLUTION PEN- INJECTOR 10 units SC daily TOUJEO SOLOSTAR 300 UNIT/ML SUBCUTANEOUS SOLUTION PEN-INJECTOR INSULIN GLARGINE Inactive SUCRALFATE 1 GM ORAL TABLET 1 four times a day to coat the stoma ch SUCRALFATE 1 GM ORAL TABLET 200326 SUCRALFATE Inac tive GABAPENTIN 300 MG ORAL CAPSULE 1 three times a day 201 12/03/26 GABAPENTIN 300 MG ORAL CAPSULE 092907 GABAPENTIN Inactive TRAMADOL HCL 50 MG ORAL TABLET 1 twice a day as needed for pain TRAMADOL HCL 50 MG ORAL TABLET 747631 TRAMADOL HCL I nactive ZITHROMAX Z-ISAIAS 250 MG ORAL TABLET Take two tablets to day and then 1 tablet daily for 4 days ZITHROMAX Z-ISAIAS 250 MG ORAL TAB LET 430141 AZITHROMYCIN Inactive Immunizations Vaccine Administration Date Value Standard Floyd cription influenza immunization (Flu Vax) has been administered 05/11 Done according to patient influenza virus vaccine, unspecified for mulation pneumococcal immunization administered Pneumovax 23 [CVX33] pneumococcal polysaccharide vaccine, 23 valent Seasonal influenza vaccine, injectable, containing preservative, for > 3 years old (Afluria, FluLaval, Fluzone, Fluvirin, Fluarix, Agriflu(>= 18 yo)) Fluzone (>3 yrs.) [AUK142] Influenza, seasonal, inject able Seasonal influenza vaccine, injectable, containing preservative, for > 3 years old (Afluria, FluLaval, Fluzone, Fluvirin, Fluarix, Agriflu(>= 18 yo)) Fluzone (>3 yrs.) [QLD901] Influenza, seasonal, inject able Vital Signs Date [...] - Chem istry sodium, serum 139 mmol/L 723-719 8241/06/26 potassium, serum 4.8 mmol/L 3.5-5.2 chloride, serum 102 mmol/L 98-107 carbon dioxide, venous blood 29.1 mmol/L 21.0-32 .0 blood glucose 179 mg/dL 65-95 calcium, serum 9.7 mg/dL 8.5-10.1 urea nitrogen, blood 31 mg/dL 7-18 creatinine, serum 1.97 mg/dL 0.60-1.30 sodium, serum 136 mmol/L 067-285 2589/06/04 potassium, serum 4.9 mmol/L 3.5-5.2 chloride, serum [...] 0.40 mg/dL 0.00-1.00 cholesterol, serum 218 mg/dL 814-016 6797/12/18 triglyceride, serum, fasting 357 mg/dL 30-200 HDL cholesterol, serum 49 mg/dL 32-60 LDL cholesterol, serum 103.00 mg/dL 5.00-130.00 hemoglobin A1C, blood, as % of total hemoglobin 8.5 % 4.3-6.0 sodium, serum 142 mmol/L 766-806 1882/12/18 carbon dioxide, venous blood 32.5 mmol/L 21.0-32 [...] 0.36-3.74 Encounters Code Encounter Date Provider Facility CPT-92495 90067-Ass Vst-Est Level IV 15:14:58 CDT Charlie Childers MD [facility] CPT-71951 96378-Tvv Vst-Est Level IV 15:12:52 DEAF INTERPRETER Charlie Childers MD [facility] CPT-71571 92336-Ucp Vst-Est Level IV 15:30:55 DEAF INTERPRETER Charlie Childers MD [facility] CPT-41819 58296-Jlu Vst-Est Level IV 13:49:06 C ELIOT Martinez PA-C [facility] CPT-37311 Level 4 Est. Patient 17:26:08 CDT Ann trujillo PA-C [facility] CPT-47789 56211-Mfy Vst-Est Level V 14:26:27 CDT Aneudy Childers MD [facility]-03231 Level 4 Est. Patient 17:05:37 CDT Baltazar Childers MD [facility]-77479 Level 4 Est. Patient 16:21:19 DEAF INTERPRETER Baltazar Childers MD [facility]-01111 Level 4 Est. Patient 12:25:11 CDT Baltazar Childers MD [facility]-02320 Level 4 Est. Patient 14:22:31 CDT Baltazar Childers MD [facility]-47456 Level 4 Est. Patient 15:44:38 CDT [facility] Est. Patient 11:34:17 CDT Baltazar Childers MD [facility]-87354 Level 3 Est. Patient 16:40:40 CDT Baltazar Childers MD [facility]-33480 Level 4 Est. Patient 10:41:24 CDT Baltazar Childers MD [facility]-61984 Level 4 Est. Patient 16:01:48 CDT Baltazar Childers MD [facility]-32773 Level 4 Est. Patient 16:54:07 DEAF INTERPRETER Baltazar Childers MD [facility]-91830 Level 4 Est. Patient 15:42:12 CDT Baltazar Childers MD [facility]-83686 Level 4 Est. Patient 11:29:55 CDT Baltazar Childers MD [facility] CPT-70177 Level 4 Est. Patient 14:15:19 CDT Baltazar Childers MD [facility]-47315 Level 4 Est. Patient 12:20:13 CDT Baltazar Childers MD [facility]-54636 Level 4 Est. Patient 14:52:45 DEAF INTERPRETER Baltazar Childers MD [facility] CPT-92376 Level 4 Est. Patient 14:18:34 DEAF INTERPRETER Baltazar Childers MD [facility] CPT-83696 Level 4 Est. Patient 15:18:29 CDT Baltazar Childers MD [facility] CPT-52785 Level 3 Est. Patient 12:45:34 CDT Baltazar Childers MD [facility] CPT-14672 Level 3 Est. Patient 10:10:11 CDT Baltazar Childers MD [facility] CPT-96434 Level 3 Est. Patient 14:07:50 CDT Baltazar Childers MD [facility] CPT-84334 Level 4 Est. Patient 12:26:10 DEAF INTERPRETER Baltazar Childers MD [facility] CPT-63086 Level 4 Est. Patient 14:45:38 CDT Baltazar Childers MD [facility] CPT-92334 Level 4 New Patient 12:30:48 CDT Baltazar hinton MD [facility] Procedures Code Procedure Name Date Entry Date Standard Desc ription CPT-000 Give Appropriate Flu Vaccine 12:25:14 CDT 2 CPT-22758 First Vx - Ix admin via ID I M or jet injects without counseling by physician 13:08:59 CDT CPT-19086 Fluzone Quadrivalent Intramuscular Suspe nsion 0.5 ML 13:08:59 CDT CPT-27665 Venipuncture Draw Fee 12:04:12 CDT CPT-21065 Lipid - LAB USE ONLY 17:39:15 DEAF INTERPRETER 9 CPT-84739 HGBA1C - LAB USE ONLY 17:39:15 DEAF INTERPRETER CPT-30222 CMP - LAB USE ONLY 17:39:14 DEAF INTERPRETER CPT-14813 Venipuncture Draw Fee 17:39:14 DEAF INTERPRETER CPT-71571 First Vx - Ix admin via ID I M or jet injects without counseling by physician 16:55:17 DEAF INTERPRETER CPT-07974 Fluzone Quadrivalent Intramuscular Suspe nsion 0.5 ML 16:55:17 DEAF INTERPRETER CPT-36683 Renal Panel - LAB USE ONLY 17:39:20 CDT 201 10/31/07 CPT-16806 CBC - LAB USE ONLY 17:39:20 CDT CPT-78189 Venipuncture Draw Fee 17:39:20 CDT CPT-94914 Venipuncture Draw Fee 14:33:30 CDT CPT-31056 Renal Panel - LAB USE ONLY 14:33:30 CDT 201 10/31/07 CPT-20365 CBC - LAB USE ONLY 14:33:29 CDT CPT-05614 Venipuncture Draw Fee 14:50:21 DEAF INTERPRETER CPT-96907 Immunization Single Admin 17:35:35 CDT 2014 CPT-72295 Fluzone Quadrivalent preservative free ( >=3yrs.) 17:35:35 CDT CPT-17365 Venipuncture Draw Fee 12:10:27 DEAF INTERPRETER CPT-85795 Fluzone Quadrivalent Intramuscular Suspe nsion 0.5 ML 10:49:13 CDT CPT-53731 First Vx Component - Ix admi n via ID IM or jet inj without physician counseling 15:17:19 DEAF INTERPRETER CPT-09364 Pneumovax 23 15:17:19 DEAF INTERPRETER CPT-68954 Pneumovax 14:52:45 DEAF INTERPRETER CPT-45996 Venipuncture Draw Fee 14:06:30 DEAF INTERPRETER CPT-000 Give Appropriate Flu Vaccine 14:18:34 DEAF INTERPRETER 2 CPT-31952 Administration single or combination vac cine inc oral 14:46:00 DEAF INTERPRETER CPT-45575 Influenza split virus > age 3 14:46:00 DEAF INTERPRETER CPT-OV Office Visit 19:13:16 CDT CPT-96478 Zostavax 18:41:56 CDT CPT-93272 Administration single or combination vac cine inc oral 12:56:39 CDT CPT-20353 Zoster Vaccine (Zostavax) 12:56:39 CDT 2012 CPT-84733 Venipuncture Draw Fee 10:58:57 CDT CPT-43094 Sono pelvis non OB uterus ovaries cervix 17:45:04 CDT CPT-29656 Sono retroperitoneal complete kidneys an d bladder 17:14:36 CDT CPT-OV Office Visit 14:59:38 DEAF INTERPRETER CPT-J1070 Depo Testosterone 100 mg 14:50:13 CDT 03/05 CPT-00303 Abx/Therapy Injection 14:50:13 CDT CPT-07047 Administration single or combination vac cine inc oral 14:34:43 CDT CPT-62796 Influenza split virus > age 3 14:34:43 CDT CPT-J1070 Depo Testosterone 100 mg 17:37:13 CDT 01/11 CPT-83036 Abx/Therapy Injection 17:37:13 CDT CPT-50772 Venipuncture Draw Fee 16:30:13 CDT CPT-01873 Venipuncture Draw Fee 16:29:43 CDT CPT-J1070 Depo Testosterone 100 mg 14:45:38 CDT 01/11
--- OUTSIDE RECORDS SUMMARY | 2019-10-27 11:45 | XMS REPORT | Clinical Summary ---
[...] of unspecified type of vessel, [place] or graft OTH NONSPC ABN FINDNG RAD&OTH [...] INJECTOR 33 units SC daily INSULIN GLARGINE 46990745883 Active Baltazar Childers MD Active TRAMADOL HCL 50 MG ORAL TABLET 1 twice a day as needed for pain TRAMADOL HCL 54854823575 No Longer Active Baltazar Childers MD Active ROBAXIN 500 MG ORAL TABLET Take 1.5 (one and one half) tabs once daily METHOCARBAMOL 43753102451 Active Baltazar Childers MD Active SYNTHROID 112 MCG ORAL TABLET Take one tablet a day LEVOTHYROXINE SODIUM 41116802726 Active Baltazar Childers MD Active TRUE METRIX AIR GLUCOSE METER DEVICE Use as directed BLOOD GLUCOSE MONITORING SUPPL 02720354085 Active Baltazar Childers MD Activ e TRUE METRIX BLOOD GLUCOSE TEST IN VITRO STRIP test blood sug ar BID Dx: E11.65 GLUCOSE BLOOD 73390356179 Active KENDALL Juarez Active NORTRIPTYLINE HCL 50 MG ORAL CAPSULE 1 twice a day for neuropathy 2 NORTRIPTYLINE HCL 98857411792 Active Baltazar Childers MD Acti ve ASPIRIN 81 MG TBEC Take one (1) tablet by mouth daily ASPIRIN 89661244472 Active Baltazar Childers MD Active GABAPENTIN 300 MG ORAL CAPSULE 1 three times a day 201 12/03/26 GABAPENTIN 00363942525 No Longer Active Baltazar Childers MD Activ e LISINOPRIL 20 MG ORAL TABLET 1 tablet by mouth daily at night 2016 LISINOPRIL 74849651523 Active Baltazar Childers MD Active ZITHROMAX Z-ISAIAS 250 MG ORAL TABLET Take two tablets to day and then 1 tablet daily for 4 days AZITHROMYCIN 48644582729 No Longer A ctive Baltazar Childers MD Active AMLODIPINE BESYLATE 5 MG ORAL TABLET 1 tab daily for HTN AMLODIPINE BESYLATE 41670840663 Active Baltazar Childers MD Active GLIPIZIDE 10 MG ORAL TABLET take 2 tablets twice daily GLIPIZIDE 05146137998 Active Baltazar Childers MD Active SUCRALFATE 1 GM ORAL TABLET 1 four times a day to coat the stoma ch SUCRALFATE 61038291800 No Longer Active Baltazar Childers MD Active PEN NEEDLES 31G X 6 MM use 1 daily INSULIN PEN NE EDLE 32728793258 Active KENDALL Juarez Active TOZULEIKA SOLOSTAR 300 UNIT/ML SUBCUTANEOUS SOLUTION PEN- INJECTOR 10 units SC daily INSULIN GLARGINE 05699638312 No Longer Active Rola ARGUETA Active NAPROXEN SODIUM 220 MG ORAL TABLET 1 three times a day as needed NAPROXEN SODIUM 51354714847 No Longer Active Baltazar Childers MD Active ATORVASTATIN CALCIUM 20 MG ORAL TABLET Take 1 tab daily ATORVASTATIN CALCIUM 07566269528 Active Baltazar Childers MD A ctive FUROSEMIDE 40 MG ORAL TABLET Take one by mouth daily FUROSEMIDE 45458249970 Active Baltazar Childers MD Active LISINOPRIL 20 MG ORAL TABLET Take one by mouth daily at bedtime LISINOPRIL 79614774841 No Longer Active Baltazar Childers MD Active ONETOUCH ULTRA BLUE IN VITRO STRIP Test twice a day 07/11/11 GLUCOSE BLOOD 49995774274 No Longer Active Baltazar Childers MD Acti ve TRUEPLUS LANCETS 33G Test twice a day LANCETS 3867678 6088 Active KENDALL Juarez Active TRUEDRAW LANCING DEVICE Test twice a day LANCET DEVICES 62535144639 Active Baltazar Childers MD Active TRUETRACK BLOOD GLUCOSE w/Device KIT Test twice a day BLOOD GLUCOSE MONITORING SUPPL 39780598048 Active Baltazar Childers MD Activ e HYDROCODONE-ACETAMINOPHEN 7.5-325 MG ORAL TABLET Take 1 tab every 6-8 hours PRN HYDROCODONE-ACETAMINOPHEN 11815636051 Active Baltazar Nickerson MD Active GABAPENTIN 300 MG ORAL CAPSULE 1 po qd x 2 days, then 1 po BID x 2 days, then 1 po TID GABAPENTIN 05546174799 No Longer Active Baltazar Childers MD Active NAPROXEN 500 MG ORAL TABLET 1 tablet by mouth twice daily NAPROXEN 76246116159 No Longer Active Baltazar Childers MD Active PROAIR HFA 108 (90 Base) MCG/ACT INHALATION AEROSOL SO LUTION 2 puffs four times a day as needed ALBUTEROL SULFATE 88479694660 Active Shun Arellano LPN Active DEPO-TESTOSTERONE 200 MG/ML INTRAMUSCULAR SOLUTION as directed TESTOSTERONE CYPIONATE 25959594805 No Longer Active Baltazar Childers MD Active LIPITOR 20 MG ORAL TABLET Take one by mouth daily in evening ATORVASTATIN CALCIUM 00081521662 No Longer Active Baltazar Childers MD Active CRESTOR 10 MG ORAL TABLET 1 by mouth every day ROSUVASTATIN CALCIUM 50444535843 No Longer Active Baltazar Childers MD Active PHENTERMINE HCL 37.5 MG ORAL TABLET Take one by mouth daily PHENTERMINE HCL 85420521655 No Longer Active Baltazar Childers MD Ac tive TIZANIDINE HCL 4 MG ORAL TABLET 1 daily as needed for muscle spa sm TIZANIDINE HCL 18308906548 No Longer Active Dawna Salazar RN Active [id number] 50-325-40 MG ORAL TABLET 1 fo ur times a day as needed for heacache [id number] 61692703250 Active Beth Carr, RMA Active SUMATRIPTAN SUCCINATE 100 MG ORAL TABLET 1 tablet by m outh at onset of migraine as needed SUMATRIPTAN SUCCINATE 62867687635 Active Baltazar Nickerson MD Active LORATADINE 10 MG ORAL TABLET Take one by mouth daily LORATADINE 87479795349 Active Baltazar Childers MD Active OMEPRAZOLE 20 MG ORAL CAPSULE DELAYED RELEASE Take one by mouth jostin ly OMEPRAZOLE 84569448881 Active Baltazar Childers MD Active HYDROXYZINE HCL 25 MG ORAL TABLET Take one by mouth daily HYDROXYZINE HCL 32284936180 Active Baltazar Childers MD Active ALPRAZOLAM 1 MG ORAL TABLET 1 [facility] 33906536972 Active Baltazar Childers MD Active METFORMIN HCL 1000 MG ORAL TABLET Take one by mouth twice daily METFORMIN HCL 50268334617 Active Baltazar Childers MD Active TIZANIDINE HCL 4 MG ORAL TABLET 1 daily as needed for muscle spa sm TIZANIDINE HCL 4 MG ORAL TABLET 109466 TIZANIDINE HCL Inactive PHENTERMINE HCL 37.5 MG ORAL TABLET Take one by mouth daily PHENTERMINE HCL 37.5 MG ORAL TABLET 085572 PHENTERMINE HCL Inac tive CRESTOR 10 MG ORAL TABLET 1 by mouth every day CRESTOR 10 MG ORAL TABLET 238753 ROSUVASTATIN CALCIUM Inactive LIPITOR 20 MG ORAL TABLET Take one by mouth daily in evening LIPITOR 20 MG ORAL TABLET 283075 ATORVASTATIN CALCIUM Inactive DEPO-TESTOSTERONE 200 MG/ML INTRAMUSCULAR SOLUTION as directed DEPO-TESTOSTERONE 200 MG/ML INTRAMUSCULAR SOLUTION 4846038 RUFINO TOSTERONE CYPIONATE Inactive NAPROXEN 500 MG ORAL TABLET 1 tablet by mouth twice daily NAPROXEN 500 MG ORAL TABLET 405450 NAPROXEN Inactive GABAPENTIN 300 MG ORAL CAPSULE 1 po qd x 2 days, then 1 po BID x 2 days, then 1 po TID GABAPENTIN 300 MG ORAL CAPSULE 758353 GABAP ENTIN Inactive ONETOUCH ULTRA BLUE IN VITRO STRIP Test twice a day 07/11/11 ONETOUCH ULTRA BLUE IN VITRO STRIP GLUCOSE BLOOD Inact amie NAPROXEN SODIUM 220 MG ORAL TABLET 1 three times a day as needed NAPROXEN SODIUM 220 MG ORAL TABLET 156670 NAPROXEN SODI UM Inactive TOUJEO SOLOSTAR 300 UNIT/ML SUBCUTANEOUS SOLUTION PEN- INJECTOR 10 units SC daily TOUJEO SOLOSTAR 300 UNIT/ML SUBCUTANEOUS SOLUTION PEN-INJECTOR INSULIN GLARGINE Inactive SUCRALFATE 1 GM ORAL TABLET 1 four times a day to coat the stoma ch SUCRALFATE 1 GM ORAL TABLET 133274 SUCRALFATE Inac tive GABAPENTIN 300 MG ORAL CAPSULE 1 three times a day 201 12/03/26 GABAPENTIN 300 MG ORAL CAPSULE 654190 GABAPENTIN Inactive TRAMADOL HCL 50 MG ORAL TABLET 1 twice a day as needed for pain TRAMADOL HCL 50 MG ORAL TABLET 240682 TRAMADOL HCL I nactive ZITHROMAX Z-ISAIAS 250 MG ORAL TABLET Take two tablets to day and then 1 tablet daily for 4 days ZITHROMAX Z-ISAIAS 250 MG ORAL TAB LET 749268 AZITHROMYCIN Inactive Immunizations Vaccine Administration Date Value Standard Floyd cription influenza immunization (Flu Vax) has been administered 05/11 Done according to patient influenza virus vaccine, unspecified for mulation pneumococcal immunization administered Pneumovax 23 [CVX33] pneumococcal polysaccharide vaccine, 23 valent Seasonal influenza vaccine, injectable, containing preservative, for > 3 years old (Afluria, FluLaval, Fluzone, Fluvirin, Fluarix, Agriflu(>= 18 yo)) Fluzone (>3 yrs.) [FVT620] Influenza, seasonal, inject able Seasonal influenza vaccine, injectable, containing preservative, for > 3 years old (Afluria, FluLaval, Fluzone, Fluvirin, Fluarix, Agriflu(>= 18 yo)) Fluzone (>3 yrs.) [VUF784] Influenza, seasonal, inject able Vital Signs Date [...] - Chem istry sodium, serum 139 mmol/L 689-939 2367/06/26 potassium, serum 4.8 mmol/L 3.5-5.2 chloride, serum 102 mmol/L 98-107 carbon dioxide, venous blood 29.1 mmol/L 21.0-32 .0 blood glucose 179 mg/dL 65-95 calcium, serum 9.7 mg/dL 8.5-10.1 urea nitrogen, blood 31 mg/dL 7-18 creatinine, serum 1.97 mg/dL 0.60-1.30 sodium, serum 136 mmol/L 311-391 0686/06/04 potassium, serum 4.9 mmol/L 3.5-5.2 chloride, serum [...] 0.40 mg/dL 0.00-1.00 cholesterol, serum 218 mg/dL 132-669 9633/12/18 triglyceride, serum, fasting 357 mg/dL 30-200 HDL cholesterol, serum 49 mg/dL 32-60 LDL cholesterol, serum 103.00 mg/dL 5.00-130.00 hemoglobin A1C, blood, as % of total hemoglobin 8.5 % 4.3-6.0 sodium, serum 142 mmol/L 502-936 4340/12/18 carbon dioxide, venous blood 32.5 mmol/L 21.0-32 [...] 0.36-3.74 Encounters Code Encounter Date Provider Facility CPT-38269 [id number] Vst-Est Level IV 15:14:58 CDT Charlie Childers MD [facility] CPT-29502 [id number] Vst-Est Level IV 15:12:52 CHANGE ADVISOR Charlie Childers MD [facility] CPT-70212 [id number] Vst-Est Level IV 15:30:55 CHANGE ADVISOR Charlie Childers MD [facility] CPT-47567 [id number] Vst-Est Level IV 13:49:06 C ELIOT Martinez PA-C [facility] CPT-98642 Level 4 Est. Patient 17:26:08 CDT Ann trujillo PA-C [facility] CPT-66317 10995-Fna Vst-Est Level V 14:26:27 CDT Aneudy Childers MD [facility]-55039 Level 4 Est. Patient 17:05:37 CDT Baltazar Childers MD [facility]-22481 Level 4 Est. Patient 16:21:19 CHANGE ADVISOR Baltazar Childers MD [facility]-73519 Level 4 Est. Patient 12:25:11 CDT Baltazar Childers MD [facility]-95614 Level 4 Est. Patient 14:22:31 CDT Baltazar Childers MD [facility]-83739 Level 4 Est. Patient 15:44:38 [facility] Est[facility] Patient 11:34:17 CDT Baltazar Childers MD [facility]-24705 Level 3 Est. Patient 16:40:40 CDT Baltazar Childers MD [facility]-11305 Level 4 Est. Patient 10:41:24 CDT Baltazar Childers MD [facility]-59944 Level 4 Est. Patient 16:01:48 CDT Baltazar Childers MD [facility]-89223 Level 4 Est. Patient 16:54:07 CHANGE ADVISOR Baltazar Childers MD [facility]-42811 Level 4 Est. Patient 15:42:12 CDT Baltazar Childers MD [facility]-98724 Level 4 Est. Patient 11:29:55 CDT Baltazar Childers MD [facility] CPT-50259 Level 4 Est. Patient 14:15:19 CDT Baltazar Childers MD [facility]-57593 Level 4 Est. Patient 12:20:13 CDT Baltazar Childers MD [facility]-80946 Level 4 Est. Patient 14:52:45 CHANGE ADVISOR Baltazar Childers MD [facility] CPT-83130 Level 4 Est. Patient 14:18:34 CHANGE ADVISOR Baltazar Childers MD [facility] CPT-34062 Level 4 Est. Patient 15:18:29 CDT Baltazar Childers MD [facility] CPT-17570 Level 3 Est. Patient 12:45:34 CDT Baltazar Childers MD [facility] CPT-22363 Level 3 Est. Patient 10:10:11 CDT Baltazar Childers MD [facility] CPT-11069 Level 3 Est. Patient 14:07:50 CDT Baltazar Childers MD [facility] CPT-97060 Level 4 Est. Patient 12:26:10 CHANGE ADVISOR Baltazar Childers MD [facility] CPT-09572 Level 4 Est. Patient 14:45:38 CDT Baltazar Childers MD [facility] CPT-03134 Level 4 New Patient 12:30:48 CDT Baltazar hinton MD [facility] Procedures Code Procedure Name Date Entry Date Standard Desc ription CPT-000 Give Appropriate Flu Vaccine 12:25:14 CDT 2 CPT-51767 First Vx - Ix admin via ID I M or jet injects without counseling by physician 13:08:59 CDT CPT-56878 Fluzone Quadrivalent Intramuscular Suspe nsion 0.5 ML 13:08:59 CDT CPT-60415 Venipuncture Draw Fee 12:04:12 CDT CPT-35397 Lipid - LAB USE ONLY 17:39:15 CHANGE ADVISOR 9 CPT-29241 HGBA1C - LAB USE ONLY 17:39:15 CHANGE ADVISOR CPT-44017 CMP - LAB USE ONLY 17:39:14 CHANGE ADVISOR CPT-01363 Venipuncture Draw Fee 17:39:14 CHANGE ADVISOR CPT-54589 First Vx - Ix admin via ID I M or jet injects without counseling by physician 16:55:17 CHANGE ADVISOR CPT-88778 Fluzone Quadrivalent Intramuscular Suspe nsion 0.5 ML 16:55:17 CHANGE ADVISOR CPT-54017 Renal Panel - LAB USE ONLY 17:39:20 CDT 201 10/31/07 CPT-33392 CBC - LAB USE ONLY 17:39:20 CDT CPT-23596 Venipuncture Draw Fee 17:39:20 CDT CPT-58769 Venipuncture Draw Fee 14:33:30 CDT CPT-39675 Renal Panel - LAB USE ONLY 14:33:30 CDT 201 10/31/07 CPT-46273 CBC - LAB USE ONLY 14:33:29 CDT CPT-21663 Venipuncture Draw Fee 14:50:21 CHANGE ADVISOR CPT-38694 Immunization Single Admin 17:35:35 CDT 2014 CPT-19297 Fluzone Quadrivalent preservative free ( >=3yrs.) 17:35:35 CDT CPT-68339 Venipuncture Draw Fee 12:10:27 CHANGE ADVISOR CPT-72512 Fluzone Quadrivalent Intramuscular Suspe nsion 0.5 ML 10:49:13 CDT CPT-63270 First Vx Component - Ix admi n via ID IM or jet inj without physician counseling 15:17:19 CHANGE ADVISOR CPT-86723 Pneumovax 23 15:17:19 CHANGE ADVISOR CPT-61088 Pneumovax 14:52:45 CHANGE ADVISOR CPT-76379 Venipuncture Draw Fee 14:06:30 CHANGE ADVISOR CPT-000 Give Appropriate Flu Vaccine 14:18:34 CHANGE ADVISOR 2 CPT-06382 Administration single or combination vac cine inc oral 14:46:00 CHANGE ADVISOR CPT-84229 Influenza split virus > age 3 14:46:00 CHANGE ADVISOR CPT-OV Office Visit 19:13:16 CDT CPT-85157 Zostavax 18:41:56 CDT CPT-80487 Administration single or combination vac cine inc oral 12:56:39 CDT CPT-70376 Zoster Vaccine (Zostavax) 12:56:39 CDT 2012 CPT-59802 Venipuncture Draw Fee 10:58:57 CDT CPT-56223 Sono pelvis non OB uterus ovaries cervix 17:45:04 CDT CPT-83584 Sono retroperitoneal complete kidneys an d bladder 17:14:36 CDT CPT-OV Office Visit 14:59:38 CHANGE ADVISOR CPT-J1070 Depo Testosterone 100 mg 14:50:13 CDT 03/05 CPT-79006 Abx/Therapy Injection 14:50:13 CDT CPT-97773 Administration single or combination vac cine inc oral 14:34:43 CDT CPT-64575 Influenza split virus > age 3 14:34:43 CDT CPT-J1070 Depo Testosterone 100 mg 17:37:13 CDT 01/11 CPT-89374 Abx/Therapy Injection 17:37:13 CDT CPT-01834 Venipuncture Draw Fee 16:30:13 CDT CPT-23911 Venipuncture Draw Fee 16:29:43 CDT CPT-J1070 Depo Testosterone 100 mg 14:45:38 CDT 01/11
--- OUTSIDE RECORDS SUMMARY | 2019-10-27 11:45 | XMS REPORT | Clinical Summary ---
Author Author Admin, Elba Lance [facility] Address Unknown Phone Unavailable Allergies, Adverse Reactions, Alerts Allergy Name Reaction Description Start Date Severity Status Pr ovider ASPIRIN upset stomach Moderate Active Baltazar silverman MD PENICILLIN yeast infection Critical Active Baltazar Chidlers MD FISH Critical Active Baltazar bynum MD [...] INJECTOR 33 units SC daily INSULIN GLARGINE 67488258818 Active Baltazar Childers MD Active TRAMADOL HCL 50 MG ORAL TABLET 1 twice a day as needed for pain TRAMADOL HCL 47407238016 No Longer Active Baltazar Childers MD Active ROBAXIN 500 MG ORAL TABLET Take 1.5 (one and one half) tabs once daily METHOCARBAMOL 80313319568 Active Baltazar Childers MD Active SYNTHROID 112 MCG ORAL TABLET Take one tablet a day LEVOTHYROXINE SODIUM 39308386174 Active Baltazar Childers MD Active TRUE METRIX AIR GLUCOSE METER DEVICE Use as directed BLOOD GLUCOSE MONITORING SUPPL 14453991636 Active Baltazar Childers MD Activ e TRUE METRIX BLOOD GLUCOSE TEST IN VITRO STRIP test blood sug ar BID Dx: E11.65 GLUCOSE BLOOD 64450933723 Active KENDALL Juarez Active NORTRIPTYLINE HCL 50 MG ORAL CAPSULE 1 twice a day for neuropathy 2 NORTRIPTYLINE HCL 40824636135 Active Baltazar Childers MD Acti ve ASPIRIN 81 MG TBEC Take one (1) tablet by mouth daily ASPIRIN 33933943221 Active Baltazar Childers MD Active GABAPENTIN 300 MG ORAL CAPSULE 1 three times a day 201 12/03/26 GABAPENTIN 66566627654 No Longer Active Baltazar Childers MD Activ e LISINOPRIL 20 MG ORAL TABLET 1 tablet by mouth daily at night 2016 LISINOPRIL 25257675726 Active Baltazar Childers MD Active ZITHROMAX Z-ISAIAS 250 MG ORAL TABLET Take two tablets to day and then 1 tablet daily for 4 days AZITHROMYCIN 91475410683 No Longer A ctive Baltazar Childers MD Active AMLODIPINE BESYLATE 5 MG ORAL TABLET 1 tab daily for HTN AMLODIPINE BESYLATE 31115925057 Active Baltazar Childers MD Active GLIPIZIDE 10 MG ORAL TABLET take 2 tablets twice daily GLIPIZIDE 08131329489 Active Baltazar Childers MD Active SUCRALFATE 1 GM ORAL TABLET 1 four times a day to coat the stoma ch SUCRALFATE 62297549294 No Longer Active Baltazar Childers MD Active PEN NEEDLES 31G X 6 MM use 1 daily INSULIN PEN NE EDLE 82155968059 Active KENDALL Juarez Active TOZULEIKA SOLOSTAR 300 UNIT/ML SUBCUTANEOUS SOLUTION PEN- INJECTOR 10 units SC daily INSULIN GLARGINE 19484805883 No Longer Active Rola ARGUETA Active NAPROXEN SODIUM 220 MG ORAL TABLET 1 three times a day as needed NAPROXEN SODIUM 79163147516 No Longer Active Baltazar Childers MD Active ATORVASTATIN CALCIUM 20 MG ORAL TABLET Take 1 tab daily ATORVASTATIN CALCIUM 51487495284 Active Baltazar Childers MD A ctive FUROSEMIDE 40 MG ORAL TABLET Take one by mouth daily FUROSEMIDE 69041933322 Active Baltazar Childers MD Active LISINOPRIL 20 MG ORAL TABLET Take one by mouth daily at bedtime LISINOPRIL 96227152064 No Longer Active Baltazar Childers MD Active ONETOUCH ULTRA BLUE IN VITRO STRIP Test twice a day 07/11/11 GLUCOSE BLOOD 28042471561 No Longer Active Baltazar Childers MD Acti ve TRUEPLUS LANCETS 33G Test twice a day LANCETS 5317404 7983 Active KENDALL Juarez Active TRUEDRAW LANCING DEVICE Test twice a day LANCET DEVICES 02981078070 Active Baltazar Childers MD Active TRUETRACK BLOOD GLUCOSE w/Device KIT Test twice a day BLOOD GLUCOSE MONITORING SUPPL 26852572358 Active Baltazar Childers MD Activ e HYDROCODONE-ACETAMINOPHEN 7.5-325 MG ORAL TABLET Take 1 tab every 6-8 hours PRN HYDROCODONE-ACETAMINOPHEN 47388501353 Active Baltazar Nickerson MD Active GABAPENTIN 300 MG ORAL CAPSULE 1 po qd x 2 days, then 1 po BID x 2 days, then 1 po TID GABAPENTIN 96355798716 No Longer Active Baltazar Childers MD Active NAPROXEN 500 MG ORAL TABLET 1 tablet by mouth twice daily NAPROXEN 48689865791 No Longer Active Baltazar Childers MD Active PROAIR HFA 108 (90 Base) MCG/ACT INHALATION AEROSOL SO LUTION 2 puffs four times a day as needed ALBUTEROL SULFATE 89547639712 Active Shun Arellano LPN Active DEPO-TESTOSTERONE 200 MG/ML INTRAMUSCULAR SOLUTION as directed TESTOSTERONE CYPIONATE 68371408451 No Longer Active Baltazar Childers MD Active LIPITOR 20 MG ORAL TABLET Take one by mouth daily in evening ATORVASTATIN CALCIUM 63958091626 No Longer Active Baltazar Childers MD Active CRESTOR 10 MG ORAL TABLET 1 by mouth every day ROSUVASTATIN CALCIUM 73587504823 No Longer Active Baltazar Childers MD Active PHENTERMINE HCL 37.5 MG ORAL TABLET Take one by mouth daily PHENTERMINE HCL 57284470414 No Longer Active Baltazar Childers MD Ac tive TIZANIDINE HCL 4 MG ORAL TABLET 1 daily as needed for muscle spa sm TIZANIDINE HCL 91894625687 No Longer Active Dawna Salazar RN Active JUKWYNIDUT-PLET-EUASIEMT 50-325-40 MG ORAL TABLET 1 fo ur times a day as needed for heacache [id number] 97728322089 Active Beth Carr, RMA Active SUMATRIPTAN SUCCINATE 100 MG ORAL TABLET 1 tablet by m outh at onset of migraine as needed SUMATRIPTAN SUCCINATE 86487298828 Active Baltazar Nickerson MD Active LORATADINE 10 MG ORAL TABLET Take one by mouth daily LORATADINE 87723854736 Active Baltazar Childers MD Active OMEPRAZOLE 20 MG ORAL CAPSULE DELAYED RELEASE Take one by mouth jostin ly OMEPRAZOLE 32593440371 Active Baltazar Childers MD Active HYDROXYZINE HCL 25 MG ORAL TABLET Take one by mouth daily HYDROXYZINE HCL 12278644430 Active Baltazar Childers MD Active ALPRAZOLAM 1 MG ORAL TABLET 1 tablet [facility] ALPR[facility] 91066166509 Active Baltazar Childers MD Active METFORMIN HCL 1000 MG ORAL TABLET Take one by mouth twice daily METFORMIN HCL 62207430516 Active Baltazar Childers MD Active TIZANIDINE HCL 4 MG ORAL TABLET 1 daily as needed for muscle spa sm TIZANIDINE HCL 4 MG ORAL TABLET 000008 TIZANIDINE HCL Inactive PHENTERMINE HCL 37.5 MG ORAL TABLET Take one by mouth daily PHENTERMINE HCL 37.5 MG ORAL TABLET 882083 PHENTERMINE HCL Inac tive CRESTOR 10 MG ORAL TABLET 1 by mouth every day CRESTOR 10 MG ORAL TABLET 809422 ROSUVASTATIN CALCIUM Inactive LIPITOR 20 MG ORAL TABLET Take one by mouth daily in evening LIPITOR 20 MG ORAL TABLET 977377 ATORVASTATIN CALCIUM Inactive DEPO-TESTOSTERONE 200 MG/ML INTRAMUSCULAR SOLUTION as directed DEPO-TESTOSTERONE 200 MG/ML INTRAMUSCULAR SOLUTION 6447995 RUFINO TOSTERONE CYPIONATE Inactive NAPROXEN 500 MG ORAL TABLET 1 tablet by mouth twice daily NAPROXEN 500 MG ORAL TABLET 396237 NAPROXEN Inactive GABAPENTIN 300 MG ORAL CAPSULE 1 po qd x 2 days, then 1 po BID x 2 days, then 1 po TID GABAPENTIN 300 MG ORAL CAPSULE 970825 GABAP ENTIN Inactive ONETOUCH ULTRA BLUE IN VITRO STRIP Test twice a day 07/11/11 ONETOUCH ULTRA BLUE IN VITRO STRIP GLUCOSE BLOOD Inact amie NAPROXEN SODIUM 220 MG ORAL TABLET 1 three times a day as needed NAPROXEN SODIUM 220 MG ORAL TABLET 636776 NAPROXEN SODI UM Inactive TOUJEO SOLOSTAR 300 UNIT/ML SUBCUTANEOUS SOLUTION PEN- INJECTOR 10 units SC daily TOUJEO SOLOSTAR 300 UNIT/ML SUBCUTANEOUS SOLUTION PEN-INJECTOR INSULIN GLARGINE Inactive SUCRALFATE 1 GM ORAL TABLET 1 four times a day to coat the stoma ch SUCRALFATE 1 GM ORAL TABLET 116681 SUCRALFATE Inac tive GABAPENTIN 300 MG ORAL CAPSULE 1 three times a day 201 12/03/26 GABAPENTIN 300 MG ORAL CAPSULE 190212 GABAPENTIN Inactive TRAMADOL HCL 50 MG ORAL TABLET 1 twice a day as needed for pain TRAMADOL HCL 50 MG ORAL TABLET 636757 TRAMADOL HCL I nactive ZITHROMAX Z-ISAIAS 250 MG ORAL TABLET Take two tablets to day and then 1 tablet daily for 4 days ZITHROMAX Z-ISAIAS 250 MG ORAL TAB LET 182211 AZITHROMYCIN Inactive Immunizations Vaccine Administration Date Value Standard Floyd cription influenza immunization (Flu Vax) has been administered 05/11 Done according to patient influenza virus vaccine, unspecified for mulation pneumococcal immunization administered Pneumovax 23 [CVX33] pneumococcal polysaccharide vaccine, 23 valent Seasonal influenza vaccine, injectable, containing preservative, for > 3 years old (Afluria, FluLaval, Fluzone, Fluvirin, Fluarix, Agriflu(>= 18 yo)) Fluzone (>3 yrs.) [[id number]] Influenza, seasonal, inject able Seasonal influenza vaccine, injectable, containing preservative, for > 3 years old (Afluria, FluLaval, Fluzone, Fluvirin, Fluarix, Agriflu(>= 18 yo)) Fluzone (>3 yrs.) [[id number]] Influenza, seasonal, inject able Vital Signs Date [...] - Chem istry sodium, serum 139 mmol/L 532-063 8411/06/26 potassium, serum 4.8 mmol/L 3.5-5.2 chloride, serum 102 mmol/L 98-107 carbon dioxide, venous blood 29.1 mmol/L 21.0-32 .0 blood glucose 179 mg/dL 65-95 calcium, serum 9.7 mg/dL 8.5-10.1 urea nitrogen, blood 31 mg/dL 7-18 creatinine, serum 1.97 mg/dL 0.60-1.30 sodium, serum 136 mmol/L 125-023 0071/06/04 potassium, serum 4.9 mmol/L 3.5-5.2 chloride, serum [...] 0.40 mg/dL 0.00-1.00 cholesterol, serum 218 mg/dL 126-188 7056/12/18 triglyceride, serum, fasting 357 mg/dL 30-200 HDL cholesterol, serum 49 mg/dL 32-60 LDL cholesterol, serum 103.00 mg/dL 5.00-130.00 hemoglobin A1C, blood, as % of total hemoglobin 8.5 % 4.3-6.0 sodium, serum 142 mmol/L 619-048 2573/12/18 carbon dioxide, venous blood 32.5 mmol/L 21.0-32 [...] 0.36-3.74 Encounters Code Encounter Date Provider Facility CPT-52819 [id number] Vst-Est Level IV 15:14:58 CDT Charlie Childers MD [facility] CPT-74809 [id number] Vst-Est Level IV 15:12:52 [employer] Charlie Childers MD [facility] CPT-55153 [id number] Vst-Est Level IV 15:30:55 [employer] Charlie Childers MD [facility] CPT-81648 [id number] Vst-Est Level IV 13:49:06 C ELIOT Martinez PA-C [facility] CPT-38479 Level 4 Est. Patient 17:26:08 CDT Ann trujillo PA-C [facility] CPT-89939 [id number] Vst-Est Level V 14:26:27 CDT Aneudy Childers MD [facility]-29730 Level 4 Est. Patient 17:05:37 CDT Baltazar Childers MD [facility]-16112 Level 4 Est. Patient 16:21:19 [employer] Baltazar Childers MD [facility]-48526 Level 4 Est. Patient 12:25:11 CDT Baltazar Childers MD [facility]-02750 Level 4 Est. Patient 14:22:31 CDT Baltazar Childers MD [facility]-71510 Level 4 Est. Patient 15:44:38 [facility] Patient 11:34:17 CDT Baltazar Childers MD [facility]-35468 Level 3 Est. Patient 16:40:40 CDT Baltazar Childers MD [facility]-72410 Level 4 Est. Patient 10:41:24 CDT Baltazar Childers MD [facility]-41856 Level 4 Est. Patient 16:01:48 CDT Baltazar Childers MD [facility]-49569 Level 4 Est. Patient 16:54:07 [employer] Baltazar Childers MD [facility]-49174 Level 4 Est. Patient 15:42:12 CDT Baltazar hCilders MD [facility] [place]79283 Level 4 Est. Patient 11:29:55 CDT Baltazar Childers MD [facility] CPT-76951 Level 4 Est. Patient 14:15:19 CDT Baltazar Childers MD [facility] [place]-99732 Level 4 Est. Patient 12:20:13 CDT Baltazar Childers MD [facility] [place]-92000 Level 4 Est. Patient 14:52:45 [employer] Baltazar Childers MD [facility] CPT-19016 Level 4 Est. Patient 14:18:34 [employer] Baltazar Childers MD [facility] CPT-52393 Level 4 Est. Patient 15:18:29 CDT Baltazar Childers MD [facility] CPT-78872 Level 3 Est. Patient 12:45:34 CDT Baltazar Childers MD [facility] CPT-59760 Level 3 Est. Patient 10:10:11 CDT Baltazar Childers MD [facility] CPT-72122 Level 3 Est. Patient 14:07:50 CDT Baltazar Childers MD [facility] CPT-68617 Level 4 Est. Patient 12:26:10 [employer] Baltazar Childers MD [facility] CPT-13838 Level 4 Est. Patient 14:45:38 CDT Baltazar Childers MD [facility] CPT-85520 Level 4 New Patient 12:30:48 CDT Baltazar hinton MD [facility] Procedures Code Procedure Name Date Entry Date Standard Desc ription CPT-000 Give Appropriate Flu Vaccine 12:25:14 CDT 2 CPT-38368 First Vx - Ix admin via ID I M or jet injects without counseling by physician 13:08:59 CDT CPT-04181 Fluzone Quadrivalent Intramuscular Suspe nsion 0.5 ML 13:08:59 CDT CPT-43605 Venipuncture Draw Fee 12:04:12 CDT CPT-70716 Lipid - LAB USE ONLY 17:39:15 [employer] 9 CPT-90598 HGBA1C - LAB USE ONLY 17:39:15 [employer] CPT-32799 CMP - LAB USE ONLY 17:39:14 [employer] CPT-59318 Venipuncture Draw Fee 17:39:14 [employer] CPT-54289 First Vx - Ix admin via ID I M or jet injects without counseling by physician 16:55:17 [employer] CPT-29019 Fluzone Quadrivalent Intramuscular Suspe nsion 0.5 ML 16:55:17 [employer] CPT-62000 Renal Panel - LAB USE ONLY 17:39:20 CDT 201 10/31/07 CPT-29964 CBC - LAB USE ONLY 17:39:20 CDT CPT-90653 Venipuncture Draw Fee 17:39:20 CDT CPT-78166 Venipuncture Draw Fee 14:33:30 CDT CPT-71684 Renal Panel - LAB USE ONLY 14:33:30 CDT 201 10/31/07 CPT-50747 CBC - LAB USE ONLY 14:33:29 CDT CPT-05349 Venipuncture Draw Fee 14:50:21 [employer] CPT-36097 Immunization Single Admin 17:35:35 CDT 2014 CPT-56733 Fluzone Quadrivalent preservative free ( >=3yrs.) 17:35:35 CDT CPT-27364 Venipuncture Draw Fee 12:10:27 [employer] CPT-84492 Fluzone Quadrivalent Intramuscular Suspe nsion 0.5 ML 10:49:13 CDT CPT-08687 First Vx Component - Ix admi n via ID IM or jet inj without physician counseling 15:17:19 [employer] CPT-82174 Pneumovax 23 15:17:19 [employer] CPT-57210 Pneumovax 14:52:45 [employer] CPT-63557 Venipuncture Draw Fee 14:06:30 [employer] CPT-000 Give Appropriate Flu Vaccine 14:18:34 [employer] 2 CPT-91136 Administration single or combination vac cine inc oral 14:46:00 [employer] CPT-13110 Influenza split virus > age 3 14:46:00 [employer] CPT-OV Office Visit 19:13:16 CDT CPT-21788 Zostavax 18:41:56 CDT CPT-52149 Administration single or combination vac cine inc oral 12:56:39 CDT CPT-74031 Zoster Vaccine (Zostavax) 12:56:39 CDT 2012 CPT-05176 Venipuncture Draw Fee 10:58:57 CDT CPT-52150 Sono pelvis non OB uterus ovaries cervix 17:45:04 CDT CPT-45722 Sono retroperitoneal complete kidneys an d bladder 17:14:36 CDT CPT-OV Office Visit 14:59:38 [employer] CPT-J1070 Depo Testosterone 100 mg 14:50:13 CDT 03/05 CPT-04475 Abx/Therapy Injection 14:50:13 CDT CPT-29070 Administration single or combination vac cine inc oral 14:34:43 CDT CPT-33437 Influenza split virus > age 3 14:34:43 CDT CPT-J1070 Depo Testosterone 100 mg 17:37:13 CDT 01/11 CPT-60033 Abx/Therapy Injection 17:37:13 CDT CPT-90476 Venipuncture Draw Fee 16:30:13 CDT CPT-21193 Venipuncture Draw Fee 16:29:43 CDT CPT-J1070 Depo Testosterone 100 mg 14:45:38 CDT 01/11
--- OUTSIDE RECORDS SUMMARY | 2019-10-27 11:45 | XMS REPORT | Clinical Summary ---
Author Author Admin, Elba Lance [facility] Address Unknown Phone Unavailable Allergies, Adverse [...] ronary atherosclerosis of unspecified type of vessel, [place] or graft OTH NONSPC ABN FINDNG RAD&OTH [...] INJECTOR 33 units SC daily INSULIN GLARGINE 52156387361 Active Baltazar Childers MD Active TRAMADOL HCL 50 MG ORAL TABLET 1 twice a day as needed for pain TRAMADOL HCL 35379472198 No Longer Active Baltazar Childers MD Active ROBAXIN 500 MG ORAL TABLET Take 1.5 (one and one half) tabs once daily METHOCARBAMOL 04047441054 Active Baltazar Childers MD Active SYNTHROID 112 MCG ORAL TABLET Take one tablet a day LEVOTHYROXINE SODIUM 22393777620 Active Baltazar Childers MD Active TRUE METRIX AIR GLUCOSE METER DEVICE Use as directed BLOOD GLUCOSE MONITORING SUPPL 67843837548 Active Baltazar Childers MD Activ e TRUE METRIX BLOOD GLUCOSE TEST IN VITRO STRIP test blood sug ar BID Dx: E11.65 GLUCOSE BLOOD 25065652545 Active KENDALL Juarez Active NORTRIPTYLINE HCL 50 MG ORAL CAPSULE 1 twice a day for neuropathy 2 NORTRIPTYLINE HCL 26407555390 Active Baltazar Childers MD Acti ve ASPIRIN 81 MG TBEC Take one (1) tablet by mouth daily ASPIRIN 49303655677 Active Baltazar Childers MD Active GABAPENTIN 300 MG ORAL CAPSULE 1 three times a day 201 12/03/26 GABAPENTIN 61336188382 No Longer Active Baltazar Childers MD Activ e LISINOPRIL 20 MG ORAL TABLET 1 tablet by mouth daily at night 2016 LISINOPRIL 14020838648 Active Baltazar Childers MD Active ZITHROMAX Z-ISAIAS 250 MG ORAL TABLET Take two tablets to day and then 1 tablet daily for 4 days AZITHROMYCIN 94865225098 No Longer A ctive Baltazar Childers MD Active AMLODIPINE BESYLATE 5 MG ORAL TABLET 1 tab daily for HTN AMLODIPINE BESYLATE 20613433147 Active Baltazar Childers MD Active GLIPIZIDE 10 MG ORAL TABLET take 2 tablets twice daily GLIPIZIDE 46121888787 Active Baltazar Childers MD Active SUCRALFATE 1 GM ORAL TABLET 1 four times a day to coat the stoma ch SUCRALFATE 01431873633 No Longer Active Baltazar Childers MD Active PEN NEEDLES 31G X 6 MM use 1 daily INSULIN PEN NE EDLE 00564906179 Active KENDALL Juarez Active TOZULEIKA SOLOSTAR 300 UNIT/ML SUBCUTANEOUS SOLUTION PEN- INJECTOR 10 units SC daily INSULIN GLARGINE 96465165414 No Longer Active Rola ARGUETA Active NAPROXEN SODIUM 220 MG ORAL TABLET 1 three times a day as needed NAPROXEN SODIUM 76897276952 No Longer Active Baltazar Childers MD Active ATORVASTATIN CALCIUM 20 MG ORAL TABLET Take 1 tab daily ATORVASTATIN CALCIUM 65691488851 Active Baltazar Childers MD A ctive FUROSEMIDE 40 MG ORAL TABLET Take one by mouth daily FUROSEMIDE 08965929009 Active Baltazar Childers MD Active LISINOPRIL 20 MG ORAL TABLET Take one by mouth daily at bedtime LISINOPRIL 82808806993 No Longer Active Baltazar Childers MD Active ONETOUCH ULTRA BLUE IN VITRO STRIP Test twice a day 07/11/11 GLUCOSE BLOOD 98111254713 No Longer Active Baltazar Childers MD Acti ve TRUEPLUS LANCETS 33G Test twice a day LANCETS 8519412 0106 Active KENDALL Juarez Active TRUEDRAW LANCING DEVICE Test twice a day LANCET DEVICES 34076166198 Active Baltazar Childers MD Active TRUETRACK BLOOD GLUCOSE w/Device KIT Test twice a day BLOOD GLUCOSE MONITORING SUPPL 32907161364 Active Baltazar Childers MD Activ e HYDROCODONE-ACETAMINOPHEN 7.5-325 MG ORAL TABLET Take 1 tab every 6-8 hours PRN HYDROCODONE-ACETAMINOPHEN 20142923092 Active Baltazar Nickerson MD Active GABAPENTIN 300 MG ORAL CAPSULE 1 po qd x 2 days, then 1 po BID x 2 days, then 1 po TID GABAPENTIN 83355546947 No Longer Active Baltazar Childers MD Active NAPROXEN 500 MG ORAL TABLET 1 tablet by mouth twice daily NAPROXEN 87070369604 No Longer Active Baltazar Childers MD Active PROAIR HFA 108 (90 Base) MCG/ACT INHALATION AEROSOL SO LUTION 2 puffs four times a day as needed ALBUTEROL SULFATE 98748597092 Active Shun Arellano LPN Active DEPO-TESTOSTERONE 200 MG/ML INTRAMUSCULAR SOLUTION as directed TESTOSTERONE CYPIONATE 32925340175 No Longer Active Baltazar Childers MD Active LIPITOR 20 MG ORAL TABLET Take one by mouth daily in evening ATORVASTATIN CALCIUM 25440206258 No Longer Active Baltazar Childers MD Active CRESTOR 10 MG ORAL TABLET 1 by mouth every day ROSUVASTATIN CALCIUM 64263429742 No Longer Active Baltazar Childers MD Active PHENTERMINE HCL 37.5 MG ORAL TABLET Take one by mouth daily PHENTERMINE HCL 89837962488 No Longer Active Baltazar Childers MD Ac tive TIZANIDINE HCL 4 MG ORAL TABLET 1 daily as needed for muscle spa sm TIZANIDINE HCL 11390001620 No Longer Active Dawna Salazar RN Active [id number] 50-325-40 MG ORAL TABLET 1 fo ur times a day as needed for heacache [id number] 49264221370 Active Beth Carr, RMA Active SUMATRIPTAN SUCCINATE 100 MG ORAL TABLET 1 tablet by m outh at onset of migraine as needed SUMATRIPTAN SUCCINATE 19287537778 Active Baltazar Nickerson MD Active LORATADINE 10 MG ORAL TABLET Take one by mouth daily LORATADINE 80662949203 Active Baltazar Childers MD Active OMEPRAZOLE 20 MG ORAL CAPSULE DELAYED RELEASE Take one by mouth jostin ly OMEPRAZOLE 65689481082 Active Baltazar Childers MD Active HYDROXYZINE HCL 25 MG ORAL TABLET Take one by mouth daily HYDROXYZINE HCL 25208004771 Active Baltazar Childers MD Active ALPRAZOLAM 1 MG ORAL TABLET 1 tablet [facility] ALPR[facility]AM 51035414269 Active Baltazar Childers MD Active METFORMIN HCL 1000 MG ORAL TABLET Take one by mouth twice daily METFORMIN HCL 73821253617 Active Baltazar Childers MD Active TIZANIDINE HCL 4 MG ORAL TABLET 1 daily as needed for muscle spa sm TIZANIDINE HCL 4 MG ORAL TABLET 257996 TIZANIDINE HCL Inactive PHENTERMINE HCL 37.5 MG ORAL TABLET Take one by mouth daily PHENTERMINE HCL 37.5 MG ORAL TABLET 392246 PHENTERMINE HCL Inac tive CRESTOR 10 MG ORAL TABLET 1 by mouth every day CRESTOR 10 MG ORAL TABLET 704046 ROSUVASTATIN CALCIUM Inactive LIPITOR 20 MG ORAL TABLET Take one by mouth daily in evening LIPITOR 20 MG ORAL TABLET 508811 ATORVASTATIN CALCIUM Inactive DEPO-TESTOSTERONE 200 MG/ML INTRAMUSCULAR SOLUTION as directed DEPO-TESTOSTERONE 200 MG/ML INTRAMUSCULAR SOLUTION 8357599 RUFINO TOSTERONE CYPIONATE Inactive NAPROXEN 500 MG ORAL TABLET 1 tablet by mouth twice daily NAPROXEN 500 MG ORAL TABLET 895735 NAPROXEN Inactive GABAPENTIN 300 MG ORAL CAPSULE 1 po qd x 2 days, then 1 po BID x 2 days, then 1 po TID GABAPENTIN 300 MG ORAL CAPSULE 241644 GABAP ENTIN Inactive ONETOUCH ULTRA BLUE IN VITRO STRIP Test twice a day 07/11/11 ONETOUCH ULTRA BLUE IN VITRO STRIP GLUCOSE BLOOD Inact amie NAPROXEN SODIUM 220 MG ORAL TABLET 1 three times a day as needed NAPROXEN SODIUM 220 MG ORAL TABLET 678640 NAPROXEN SODI UM Inactive TOUJEO SOLOSTAR 300 UNIT/ML SUBCUTANEOUS SOLUTION PEN- INJECTOR 10 units SC daily TOUJEO SOLOSTAR 300 UNIT/ML SUBCUTANEOUS SOLUTION PEN-INJECTOR INSULIN GLARGINE Inactive SUCRALFATE 1 GM ORAL TABLET 1 four times a day to coat the stoma ch SUCRALFATE 1 GM ORAL TABLET 711499 SUCRALFATE Inac tive GABAPENTIN 300 MG ORAL CAPSULE 1 three times a day 201 12/03/26 GABAPENTIN 300 MG ORAL CAPSULE 526929 GABAPENTIN Inactive TRAMADOL HCL 50 MG ORAL TABLET 1 twice a day as needed for pain TRAMADOL HCL 50 MG ORAL TABLET 419096 TRAMADOL HCL I nactive ZITHROMAX Z-ISAIAS 250 MG ORAL TABLET Take two tablets to day and then 1 tablet daily for 4 days ZITHROMAX Z-ISAIAS 250 MG ORAL TAB LET 624478 AZITHROMYCIN Inactive Immunizations Vaccine Administration Date Value Standard Floyd cription influenza immunization (Flu Vax) has been administered 05/11 Done according to patient influenza virus vaccine, unspecified for mulation pneumococcal immunization administered Pneumovax 23 [CVX33] pneumococcal polysaccharide vaccine, 23 valent Seasonal influenza vaccine, injectable, containing preservative, for > 3 years old (Afluria, FluLaval, Fluzone, Fluvirin, Fluarix, Agriflu(>= 18 yo)) Fluzone (>3 yrs.) [[id number]] Influenza, seasonal, inject able Seasonal influenza vaccine, injectable, containing preservative, for > 3 years old (Afluria, FluLaval, Fluzone, Fluvirin, Fluarix, Agriflu(>= 18 yo)) Fluzone (>3 yrs.) [[id number]] Influenza, seasonal, inject able Vital Signs Date [...] - Chem istry sodium, serum 139 mmol/L 834-300 1742/06/26 potassium, serum 4.8 mmol/L 3.5-5.2 chloride, serum 102 mmol/L 98-107 carbon dioxide, venous blood 29.1 mmol/L 21.0-32 .0 blood glucose 179 mg/dL 65-95 calcium, serum 9.7 mg/dL 8.5-10.1 urea nitrogen, blood 31 mg/dL 7-18 creatinine, serum 1.97 mg/dL 0.60-1.30 sodium, serum 136 mmol/L 138-895 4958/06/04 potassium, serum 4.9 mmol/L 3.5-5.2 chloride, serum [...] 0.40 mg/dL 0.00-1.00 cholesterol, serum 218 mg/dL 811-913 1377/12/18 triglyceride, serum, fasting 357 mg/dL 30-200 HDL cholesterol, serum 49 mg/dL 32-60 LDL cholesterol, serum 103.00 mg/dL 5.00-130.00 hemoglobin A1C, blood, as % of total hemoglobin 8.5 % 4.3-6.0 sodium, serum 142 mmol/L 701-757 6408/12/18 carbon dioxide, venous blood 32.5 mmol/L 21.0-32 [...] 0.36-3.74 Encounters Code Encounter Date Provider Facility CPT-17303 38725-Vel Vst-Est Level IV 15:14:58 CDT Charlie Childers MD [facility] CPT-84775 11554-Nsv Vst-Est Level IV 15:12:52 [employer] Charlie Childers MD [facility] CPT-09023 81375-Abx Vst-Est Level IV 15:30:55 [employer] Charlie Childers MD [facility] CPT-60355 [id number] Vst-Est Level IV 13:49:06 C ELIOT Martinez PA-C [facility] CPT-08248 Level 4 Est. Patient 17:26:08 CDT Ann trujillo PA-C [facility] CPT-10421 54726-Kpa Vst-Est Level V 14:26:27 CDT Aneudy Childers MD [facility]-11533 Level 4 Est. Patient 17:05:37 CDT Baltazar Childers MD [facility]-71767 Level 4 Est. Patient 16:21:19 [employer] Baltazar Childers MD [facility]-74256 Level 4 Est. Patient 12:25:11 CDT Baltazar Childers MD [facility]-22724 Level 4 Est. Patient 14:22:31 CDT Baltazar Childers MD [facility]-61204 Level 4 Est. Patient 15:44:38 [facility] Est. Patient 11:34:17 CDT Baltazar Childers MD [facility]-77045 Level 3 Est. Patient 16:40:40 CDT Baltazar Childers MD [facility]-40021 Level 4 Est. Patient 10:41:24 CDT Baltazar Childers MD [facility]-64903 Level 4 Est. Patient 16:01:48 CDT Baltazar Childers MD [facility]-96314 Level 4 Est. Patient 16:54:07 [employer] Baltazar Childers MD [facility]-49908 Level 4 Est. Patient 15:42:12 CDT Baltazar Childers MD [facility]-40553 Level 4 Est. Patient 11:29:55 CDT Baltazar Childers MD [facility] CPT-63762 Level 4 Est. Patient 14:15:19 CDT Baltazar Childers MD [facility]-42892 Level 4 Est. Patient 12:20:13 CDT Baltazar Childers MD [facility]-02115 Level 4 Est. Patient 14:52:45 [employer] Baltazar Childers MD [facility] CPT-80295 Level 4 Est. Patient 14:18:34 [employer] Baltazar Childers MD [facility] CPT-50083 Level 4 Est. Patient 15:18:29 CDT Baltazar Childers MD [facility] CPT-75485 Level 3 Est. Patient 12:45:34 CDT Baltazar Childers MD [facility] CPT-50299 Level 3 Est. Patient 10:10:11 CDT Baltazar Childers MD [facility] CPT-88364 Level 3 Est. Patient 14:07:50 CDT Baltazar Childers MD [facility] CPT-35978 Level 4 Est. Patient 12:26:10 [employer] Baltazar Childers MD [facility] CPT-99198 Level 4 Est. Patient 14:45:38 CDT Baltazar Childers MD [facility] CPT-94601 Level 4 New Patient 12:30:48 CDT Baltazar hinton MD [facility] Procedures Code Procedure Name Date Entry Date Standard Desc ription CPT-000 Give Appropriate Flu Vaccine 12:25:14 CDT 2 CPT-17341 First Vx - Ix admin via ID I M or jet injects without counseling by physician 13:08:59 CDT CPT-85524 Fluzone Quadrivalent Intramuscular Suspe nsion 0.5 ML 13:08:59 CDT CPT-96194 Venipuncture Draw Fee 12:04:12 CDT CPT-88974 Lipid - LAB USE ONLY 17:39:15 [employer] 9 CPT-27555 HGBA1C - LAB USE ONLY 17:39:15 [employer] CPT-04139 CMP - LAB USE ONLY 17:39:14 [employer] CPT-79431 Venipuncture Draw Fee 17:39:14 [employer] CPT-63966 First Vx - Ix admin via ID I M or jet injects without counseling by physician 16:55:17 [employer] CPT-85152 Fluzone Quadrivalent Intramuscular Suspe nsion 0.5 ML 16:55:17 [employer] CPT-29085 Renal Panel - LAB USE ONLY 17:39:20 CDT 201 10/31/07 CPT-70881 CBC - LAB USE ONLY 17:39:20 CDT CPT-76410 Venipuncture Draw Fee 17:39:20 CDT CPT-26966 Venipuncture Draw Fee 14:33:30 CDT CPT-34139 Renal Panel - LAB USE ONLY 14:33:30 CDT 201 10/31/07 CPT-15022 CBC - LAB USE ONLY 14:33:29 CDT CPT-55428 Venipuncture Draw Fee 14:50:21 [employer] CPT-95210 Immunization Single Admin 17:35:35 CDT 2014 CPT-34383 Fluzone Quadrivalent preservative free ( >=3yrs.) 17:35:35 CDT CPT-32797 Venipuncture Draw Fee 12:10:27 [employer] CPT-74809 Fluzone Quadrivalent Intramuscular Suspe nsion 0.5 ML 10:49:13 CDT CPT-85803 First Vx Component - Ix admi n via ID IM or jet inj without physician counseling 15:17:19 [employer] CPT-24168 Pneumovax 23 15:17:19 [employer] CPT-95808 Pneumovax 14:52:45 [employer] CPT-08300 Venipuncture Draw Fee 14:06:30 [employer] CPT-000 Give Appropriate Flu Vaccine 14:18:34 [employer] 2 CPT-19209 Administration single or combination vac cine inc oral 14:46:00 [employer] CPT-42621 Influenza split virus > age 3 14:46:00 [employer] CPT-OV Office Visit 19:13:16 CDT CPT-32066 Zostavax 18:41:56 CDT CPT-93890 Administration single or combination vac cine inc oral 12:56:39 CDT CPT-80963 Zoster Vaccine (Zostavax) 12:56:39 CDT 2012 CPT-13487 Venipuncture Draw Fee 10:58:57 CDT CPT-30488 Sono pelvis non OB uterus ovaries cervix 17:45:04 CDT CPT-72649 Sono retroperitoneal complete kidneys an d bladder 17:14:36 CDT CPT-OV Office Visit 14:59:38 [employer] CPT-J1070 Depo Testosterone 100 mg 14:50:13 CDT 03/05 CPT-39765 Abx/Therapy Injection 14:50:13 CDT CPT-33422 Administration single or combination vac cine inc oral 14:34:43 CDT CPT-77035 Influenza split virus > age 3 14:34:43 CDT CPT-J1070 Depo Testosterone 100 mg 17:37:13 CDT 01/11 CPT-94411 Abx/Therapy Injection 17:37:13 CDT CPT-38239 Venipuncture Draw Fee 16:30:13 CDT CPT-80912 Venipuncture Draw Fee 16:29:43 CDT CPT-J1070 Depo Testosterone 100 mg 14:45:38 CDT 01/11
--- OUTSIDE RECORDS SUMMARY | 2019-10-27 11:46 | XMS REPORT | Clinical Summary ---
Author Author Admin, [facility] Address Unknown Phone Unavailable Allergies, Adverse [...] ronary atherosclerosis of unspecified type of vessel, [place] or graft OTH NONSPC ABN FINDNG RAD&OTH [...] INJECTOR 33 units SC daily INSULIN GLARGINE 19375085294 Active Baltazar Childers MD Active TRAMADOL HCL 50 MG ORAL TABLET 1 twice a day as needed for pain TRAMADOL HCL 02598416311 No Longer Active Baltazar Childers MD Active ROBAXIN 500 MG ORAL TABLET Take 1.5 (one and one half) tabs once daily METHOCARBAMOL 14952797544 Active Baltazar Childers MD Active SYNTHROID 112 MCG ORAL TABLET Take one tablet a day LEVOTHYROXINE SODIUM 24894565013 Active Baltazar Childers MD Active TRUE METRIX AIR GLUCOSE METER DEVICE Use as directed BLOOD GLUCOSE MONITORING SUPPL 69918881685 Active Baltazar Childers MD Activ e TRUE METRIX BLOOD GLUCOSE TEST IN VITRO STRIP test blood sug ar BID Dx: E11.65 GLUCOSE BLOOD 94530797466 Active KENDALL Juarez Active NORTRIPTYLINE HCL 50 MG ORAL CAPSULE 1 twice a day for neuropathy 2 NORTRIPTYLINE HCL 77224077479 Active Baltazar Childers MD Acti ve ASPIRIN 81 MG TBEC Take one (1) tablet by mouth daily ASPIRIN 47409970287 Active Baltazar Childers MD Active GABAPENTIN 300 MG ORAL CAPSULE 1 three times a day 201 12/03/26 GABAPENTIN 07079088297 No Longer Active Baltazar Childers MD Activ e LISINOPRIL 20 MG ORAL TABLET 1 tablet by mouth daily at night 2016 LISINOPRIL 28768396261 Active Baltazar Childers MD Active ZITHROMAX Z-ISAIAS 250 MG ORAL TABLET Take two tablets to day and then 1 tablet daily for 4 days AZITHROMYCIN 64693832303 No Longer A ctive Baltazar Childers MD Active AMLODIPINE BESYLATE 5 MG ORAL TABLET 1 tab daily for HTN AMLODIPINE BESYLATE 39070561703 Active Baltazar Childers MD Active GLIPIZIDE 10 MG ORAL TABLET take 2 tablets twice daily GLIPIZIDE 85021952215 Active Baltazar Childers MD Active SUCRALFATE 1 GM ORAL TABLET 1 four times a day to coat the stoma ch SUCRALFATE 78493077741 No Longer Active Baltazar Childers MD Active PEN NEEDLES 31G X 6 MM use 1 daily INSULIN PEN NE EDLE 88065053899 Active KENDALL Juarez Active TOZULEIKA SOLOSTAR 300 UNIT/ML SUBCUTANEOUS SOLUTION PEN- INJECTOR 10 units SC daily INSULIN GLARGINE 64337398278 No Longer Active Rola ARGUETA Active NAPROXEN SODIUM 220 MG ORAL TABLET 1 three times a day as needed NAPROXEN SODIUM 56962343970 No Longer Active Baltazar Childers MD Active ATORVASTATIN CALCIUM 20 MG ORAL TABLET Take 1 tab daily ATORVASTATIN CALCIUM 76197351363 Active Baltazar Childers MD A ctive FUROSEMIDE 40 MG ORAL TABLET Take one by mouth daily FUROSEMIDE 28295989033 Active Baltazar Childers MD Active LISINOPRIL 20 MG ORAL TABLET Take one by mouth daily at bedtime LISINOPRIL 21311522530 No Longer Active Baltazar Childers MD Active ONETOUCH ULTRA BLUE IN VITRO STRIP Test twice a day 07/11/11 GLUCOSE BLOOD 31411237288 No Longer Active Baltazar Childers MD Acti ve TRUEPLUS LANCETS 33G Test twice a day LANCETS 8105834 0410 Active KENDALL Juarez Active TRUEDRAW LANCING DEVICE Test twice a day LANCET DEVICES 16268458381 Active Baltazar Childers MD Active TRUETRACK BLOOD GLUCOSE w/Device KIT Test twice a day BLOOD GLUCOSE MONITORING SUPPL 90117311853 Active Baltazar Childers MD Activ e HYDROCODONE-ACETAMINOPHEN 7.5-325 MG ORAL TABLET Take 1 tab every 6-8 hours PRN HYDROCODONE-ACETAMINOPHEN 10978990768 Active Baltazar Nickerson MD Active GABAPENTIN 300 MG ORAL CAPSULE 1 po qd x 2 days, then 1 po BID x 2 days, then 1 po TID GABAPENTIN 63339740698 No Longer Active Baltazar Childers MD Active NAPROXEN 500 MG ORAL TABLET 1 tablet by mouth twice daily NAPROXEN 71568955055 No Longer Active Baltazar Childers MD Active PROAIR HFA 108 (90 Base) MCG/ACT INHALATION AEROSOL SO LUTION 2 puffs four times a day as needed ALBUTEROL SULFATE 17073890803 Active Shun Arellano LPN Active DEPO-TESTOSTERONE 200 MG/ML INTRAMUSCULAR SOLUTION as directed TESTOSTERONE CYPIONATE 86989015280 No Longer Active Baltazar Childers MD Active LIPITOR 20 MG ORAL TABLET Take one by mouth daily in evening ATORVASTATIN CALCIUM 32809082250 No Longer Active Baltazar Childers MD Active CRESTOR 10 MG ORAL TABLET 1 by mouth every day ROSUVASTATIN CALCIUM 01752454950 No Longer Active Baltazar Childers MD Active PHENTERMINE HCL 37.5 MG ORAL TABLET Take one by mouth daily PHENTERMINE HCL 10038568618 No Longer Active Baltazar Childers MD Ac tive TIZANIDINE HCL 4 MG ORAL TABLET 1 daily as needed for muscle spa sm TIZANIDINE HCL 33760663235 No Longer Active Dawna Salazar RN Active [id number] 50-325-40 MG ORAL TABLET 1 fo ur times a day as needed for heacache [id number] 87386031489 Active Beth Carr, RMA Active SUMATRIPTAN SUCCINATE 100 MG ORAL TABLET 1 tablet by m outh at onset of migraine as needed SUMATRIPTAN SUCCINATE 27449870912 Active Baltazar Nickerson MD Active LORATADINE 10 MG ORAL TABLET Take one by mouth daily LORATADINE 78108215395 Active Baltazar Childers MD Active OMEPRAZOLE 20 MG ORAL CAPSULE DELAYED RELEASE Take one by mouth jostin ly OMEPRAZOLE 83474666835 Active Baltazar Childers MD Active HYDROXYZINE HCL 25 MG ORAL TABLET Take one by mouth daily HYDROXYZINE HCL 33500881895 Active Baltazar Childers MD Active ALPRAZOLAM 1 MG ORAL TABLET 1 tablet [facility] ALPRAZOLAM 75624323315 Active Baltazar Childers MD Active METFORMIN HCL 1000 MG ORAL TABLET Take one by mouth twice daily METFORMIN HCL 24350088295 Active Baltazar Childers MD Active TIZANIDINE HCL 4 MG ORAL TABLET 1 daily as needed for muscle spa sm TIZANIDINE HCL 4 MG ORAL TABLET 027741 TIZANIDINE HCL Inactive PHENTERMINE HCL 37.5 MG ORAL TABLET Take one by mouth daily PHENTERMINE HCL 37.5 MG ORAL TABLET 318473 PHENTERMINE HCL Inac tive CRESTOR 10 MG ORAL TABLET 1 by mouth every day CRESTOR 10 MG ORAL TABLET 864603 ROSUVASTATIN CALCIUM Inactive LIPITOR 20 MG ORAL TABLET Take one by mouth daily in evening LIPITOR 20 MG ORAL TABLET 433846 ATORVASTATIN CALCIUM Inactive DEPO-TESTOSTERONE 200 MG/ML INTRAMUSCULAR SOLUTION as directed DEPO-TESTOSTERONE 200 MG/ML INTRAMUSCULAR SOLUTION 7229290 RUFINO TOSTERONE CYPIONATE Inactive NAPROXEN 500 MG ORAL TABLET 1 tablet by mouth twice daily NAPROXEN 500 MG ORAL TABLET 963765 NAPROXEN Inactive GABAPENTIN 300 MG ORAL CAPSULE 1 po qd x 2 days, then 1 po BID x 2 days, then 1 po TID GABAPENTIN 300 MG ORAL CAPSULE 397474 GABAP ENTIN Inactive ONETOUCH ULTRA BLUE IN VITRO STRIP Test twice a day 07/11/11 ONETOUCH ULTRA BLUE IN VITRO STRIP GLUCOSE BLOOD Inact amie NAPROXEN SODIUM 220 MG ORAL TABLET 1 three times a day as needed NAPROXEN SODIUM 220 MG ORAL TABLET 366556 NAPROXEN SODI UM Inactive TOUJEO SOLOSTAR 300 UNIT/ML SUBCUTANEOUS SOLUTION PEN- INJECTOR 10 units SC daily TOUJEO SOLOSTAR 300 UNIT/ML SUBCUTANEOUS SOLUTION PEN-INJECTOR INSULIN GLARGINE Inactive SUCRALFATE 1 GM ORAL TABLET 1 four times a day to coat the stoma ch SUCRALFATE 1 GM ORAL TABLET 885828 SUCRALFATE Inac tive GABAPENTIN 300 MG ORAL CAPSULE 1 three times a day 201 12/03/26 GABAPENTIN 300 MG ORAL CAPSULE 785795 GABAPENTIN Inactive TRAMADOL HCL 50 MG ORAL TABLET 1 twice a day as needed for pain TRAMADOL HCL 50 MG ORAL TABLET 884127 TRAMADOL HCL I nactive ZITHROMAX Z-ISAIAS 250 MG ORAL TABLET Take two tablets to day and then 1 tablet daily for 4 days ZITHROMAX Z-ISAIAS 250 MG ORAL TAB LET 099345 AZITHROMYCIN Inactive Immunizations Vaccine Administration Date Value Standard Floyd cription influenza immunization (Flu Vax) has been administered 05/11 Done according to patient influenza virus vaccine, unspecified for mulation pneumococcal immunization administered Pneumovax 23 [CVX33] pneumococcal polysaccharide vaccine, 23 valent Seasonal influenza vaccine, injectable, containing preservative, for > 3 years old (Afluria, FluLaval, Fluzone, Fluvirin, Fluarix, Agriflu(>= 18 yo)) Fluzone (>3 yrs.) [[id number]] Influenza, seasonal, inject able Seasonal influenza vaccine, injectable, containing preservative, for > 3 years old (Afluria, FluLaval, Fluzone, Fluvirin, Fluarix, Agriflu(>= 18 yo)) Fluzone (>3 yrs.) [[id number]] Influenza, seasonal, inject able Vital Signs Date [...] - Chem istry sodium, serum 139 mmol/L 224-629 1444/06/26 potassium, serum 4.8 mmol/L 3.5-5.2 chloride, serum 102 mmol/L 98-107 carbon dioxide, venous blood 29.1 mmol/L 21.0-32 .0 blood glucose 179 mg/dL 65-95 calcium, serum 9.7 mg/dL 8.5-10.1 urea nitrogen, blood 31 mg/dL 7-18 creatinine, serum 1.97 mg/dL 0.60-1.30 Lab Report: HGBA1C - Chemistry hemoglobin A1C, blood, as % of total hemoglobin 7.4 % 4.3-6.0 Lab Report: HGBA1C, CBC, Comp. Metabolic Panel, Cholesterol, Triglycerid ... - Chemistry hemoglobin A1C, blood, as % of total hemoglobin 8.5 % 4.3-6.0 sodium, serum 142 mmol/L 296-359 8786/12/18 carbon dioxide, venous blood 32.5 mmol/L 21.0-32 .0 potassium, serum 4.4 mmol/L 3.5-5.2 chloride, serum 101 mmol/L 98-107 blood glucose 150 mg/dL 65-95 urea nitrogen, blood 18 mg/dL 7-18 creatinine, serum 1.74 mg/dL 0.60-1.30 Estimated Glomerular Filtration Rate (calc) 32 (?) mL/min/1.73m2 = OR > 60 mL/min alanine aminotransferase (SGPT), serum 37 U/L 12-78 aspartate aminotransferase (SGOT), serum 17 U/L 15-37 calcium, serum 9.2 mg/dL 8.5-10.1 bilirubin, serum, total 0.40 mg/dL 0.00-1.00 cholesterol, serum 218 mg/dL 992-444 9660/12/18 triglyceride, serum, fasting 357 mg/dL 30-200 HDL cholesterol, serum 49 mg/dL 32-60 LDL cholesterol, serum 103.00 mg/dL 5.00-130.00 Lab Report: HGBA1C, CBC, Comp. Metabolic Panel, [...] 0.36-3.74 Encounters Code Encounter Date Provider Facility CPT-04792 [id number] Vst-Est Level IV 15:14:58 CDT Charlie Childers MD [facility] CPT-32808 [id number] Vst-Est Level IV 15:12:52 SKID WORKER Charlie Childers MD [facility] CPT-04368 [id number] Vst-Est Level IV 15:30:55 SKID WORKER Charlie Childers MD [facility]-10357 [id number] Vst-Est Level IV 13:49:06 C DT Ann Martinez PA-C [facility] CPT-83596 Level 4 Est. Patient 17:26:08 CDT Ann trujillo PA-C [facility] CPT-58596 [id number] Vst-Est Level V 14:26:27 CDT Aneudy Childers MD [facility] CPT-01475 Level 4 Est. Patient 17:05:37 CDT Baltazar Childers MD [facility] CPT-02757 Level 4 Est. Patient 16:21:19 SKID WORKER Baltazar Childers MD [facility] CPT-11602 Level 4 Est. Patient 12:25:11 CDT Baltazar Childers MD [facility] CPT-94343 Level 4 Est. Patient 14:22:31 CDT Baltazar Childers MD [facility] CPT-89990 Level 4 Est. Patient 15:44:38 CDT Shonna Parker APRN [facility] CPT-64710 Level 4 Est. Patient 11:34:17 CDT Baltazar Childers MD [facility]-82610 Level 3 Est. Patient 16:40:40 CDT Baltazar Childers MD [facility]-85904 Level 4 Est. Patient 10:41:24 CDT Baltazar Childers MD [facility]-82429 Level 4 Est. Patient 16:01:48 CDT Baltazar Childers MD [facility]-19788 Level 4 Est. Patient 16:54:07 SKID WORKER Baltazar Childers MD [facility]-70955 Level 4 Est. Patient 15:42:12 CDT Baltazar Childers MD [facility] CPT-65314 Level 4 Est. Patient 11:29:55 CDT Baltazar Childers MD [facility] CPT-84307 Level 4 Est. Patient 14:15:19 CDT Baltazar Childers MD [facility] CPT-25058 Level 4 Est. Patient 12:20:13 CDT Baltazar Childers MD [facility] CPT-13826 Level 4 Est. Patient 14:52:45 SKID WORKER Baltazar Childers MD [facility] CPT-96358 Level 4 Est. Patient 14:18:34 SKID WORKER Baltazar Childers MD [facility] CPT-69529 Level 4 Est. Patient 15:18:29 CDT Baltazar Childers MD [facility] CPT-22876 Level 3 Est. Patient 12:45:34 CDT Baltazar Childers MD [facility] CPT-13783 Level 3 Est. Patient 10:10:11 CDT Baltazar Childers MD [facility] CPT-44803 Level 3 Est. Patient 14:07:50 CDT Baltazar Childers MD [facility] CPT-34288 Level 4 Est. Patient 12:26:10 SKID WORKER Baltazar Childers MD [facility] CPT-02334 Level 4 Est. Patient 14:45:38 CDT Baltazar Childers MD [facility] CPT-88487 Level 4 New Patient 12:30:48 CDT Baltazar hinton MD [facility] Procedures Code Procedure Name Date Entry Date Standard Desc ription CPT-000 Give Appropriate Flu Vaccine 12:25:14 CDT 2 CPT-87766 First Vx - Ix admin via ID I M or jet injects without counseling by physician 13:08:59 CDT CPT-94161 Fluzone Quadrivalent Intramuscular Suspe nsion 0.5 ML 13:08:59 CDT CPT-77625 Venipuncture Draw Fee 12:04:12 CDT CPT-42312 Lipid - LAB USE ONLY 17:39:15 SKID WORKER 9 CPT-24695 HGBA1C - LAB USE ONLY 17:39:15 SKID WORKER CPT-19192 CMP - LAB USE ONLY 17:39:14 SKID WORKER CPT-60848 Venipuncture Draw Fee 17:39:14 SKID WORKER CPT-96024 First Vx - Ix admin via ID I M or jet injects without counseling by physician 16:55:17 SKID WORKER CPT-70050 Fluzone Quadrivalent Intramuscular Suspe nsion 0.5 ML 16:55:17 SKID WORKER CPT-18262 Renal Panel - LAB USE ONLY 17:39:20 CDT 201 10/31/07 CPT-00390 CBC - LAB USE ONLY 17:39:20 CDT CPT-50987 Venipuncture Draw Fee 17:39:20 CDT CPT-25286 Venipuncture Draw Fee 14:33:30 CDT CPT-60659 Renal Panel - LAB USE ONLY 14:33:30 CDT 201 10/31/07 CPT-21250 CBC - LAB USE ONLY 14:33:29 CDT CPT-45146 Venipuncture Draw Fee 14:50:21 SKID WORKER CPT-89497 Immunization Single Admin 17:35:35 CDT 2014 CPT-11170 Fluzone Quadrivalent preservative free ( >=3yrs.) 17:35:35 CDT CPT-04612 Venipuncture Draw Fee 12:10:27 SKID WORKER CPT-80598 Fluzone Quadrivalent Intramuscular Suspe nsion 0.5 ML 10:49:13 CDT CPT-97369 First Vx Component - Ix admi n via ID IM or jet inj without physician counseling 15:17:19 SKID WORKER CPT-99659 Pneumovax 23 15:17:19 SKID WORKER CPT-54769 Pneumovax 14:52:45 SKID WORKER CPT-77883 Venipuncture Draw Fee 14:06:30 SKID WORKER CPT-000 Give Appropriate Flu Vaccine 14:18:34 SKID WORKER 2 CPT-62653 Administration single or combination vac cine inc oral 14:46:00 SKID WORKER CPT-16565 Influenza split virus > age 3 14:46:00 SKID WORKER CPT-OV Office Visit 19:13:16 CDT CPT-94618 Zostavax 18:41:56 CDT CPT-65422 Administration single or combination vac cine inc oral 12:56:39 CDT CPT-35901 Zoster Vaccine (Zostavax) 12:56:39 CDT 2012 CPT-52742 Venipuncture Draw Fee 10:58:57 CDT CPT-29980 Sono pelvis non OB uterus ovaries cervix 17:45:04 CDT CPT-55402 Sono retroperitoneal complete kidneys an d bladder 17:14:36 CDT CPT-OV Office Visit 14:59:38 SKID WORKER CPT-J1070 Depo Testosterone 100 mg 14:50:13 CDT 03/05 CPT-73877 Abx/Therapy Injection 14:50:13 CDT CPT-40049 Administration single or combination vac cine inc oral 14:34:43 CDT CPT-27540 Influenza split virus > age 3 14:34:43 CDT CPT-J1070 Depo Testosterone 100 mg 17:37:13 CDT 01/11 CPT-03600 Abx/Therapy Injection 17:37:13 CDT CPT-78714 Venipuncture Draw Fee 16:30:13 CDT CPT-22873 Venipuncture Draw Fee 16:29:43 CDT CPT-J1070 Depo Testosterone 100 mg 14:45:38 CDT 01/11
--- OUTSIDE RECORDS SUMMARY | 2019-10-27 11:46 | XMS REPORT | Clinical Summary ---
Author Author Admin, [facility] Address Unknown Phone Unavailable Allergies, Adverse Reactions, Alerts Allergy Name Reaction Description Start Date Severity Status Pr ovider ASPIRIN upset stomach Moderate Active Baltazar silverman MD PENICILLIN yeast infection Critical Active Baltaazr Childers MD FISH Critical Active Baltazar bynum [...] due to excess calories 278.01 Active Baltazar hCilders MD Morbid obesity ADD 314.00 Active Baltazar Childers MD Attention deficit disorder of childhood without mention of hyperactivity DECREASED LIBIDO 799.81 Active Baltazar Wayne Decreased libido COLON POLYPS 211.3 Resolved Lolis Thomas APRN Benign neoplasm of colon PERIPHERAL NEUROPATHY 356.9 Active Baltazar Nickerson MD Unspecified hereditary and idiopathic peripheral neuropathy PERSONAL HISTORY OF COLONIC POLYPS V12.72 Active 2 Lolsi Thomas APRN Personal history of colonic polyps [...] AGNST OTH SPEC DISEASE V05.8 Active Elba LINDSEYA Need for prophylacti c vaccination and inoculation against other specified disease UNSPECIFIED DISORDER OF KIDNEY AND URETER 593.9 Activ e Elbamargarette Ryan RMA Unspecified disorder of kidney and urete r LEIOMYOMA OF UTERUS, UNSPECIFIED 218.9 Active 201 08/01/12 Gayathri Hudson MD Leiomyoma of uterus, unspecified WELL WOMAN EXAMINATION V72.31 Active Gayathir aviles MD Routine gynecological examination Health screening V70.0 Active Baltazar Wayne Routine general medical examination at a health care facility Chronic pain syndrome 338.4 Active Baltazar Nickerson MD Chronic pain syndrome Chronic kidney disease stage III 585.3 Refinement 201 10/25/03 Elbamargarette LINDSEYA Chronic kidney disease, Stage III (moder ate) [...] Active Baltazar bynum MD Other screening mammogram COLON POLYPS ICD-211.3 Inactive Lolis King JOSE Bynum Pharyngitis ICD-462 Inactive Baltazar Childers MD Medication List Medication Instructions Start Date Stop Date Generic Name NDC Status Provider Patient Instruction LANTUS SOLOSTAR 100 UNIT/ML SUBCUTANEOUS SOLUTION PEN- INJECTOR 33 units SC daily INSULIN GLARGINE 27857135796 Active Baltazar Childers MD Active TRAMADOL HCL 50 MG ORAL TABLET 1 twice a day as needed for pain TRAMADOL HCL 16408181487 No Longer Active Baltazar Childers MD Active ROBAXIN 500 MG ORAL TABLET Take 1.5 (one and one half) tabs once daily METHOCARBAMOL 57747570077 Active Baltazar Childers MD Active SYNTHROID 112 MCG ORAL TABLET Take one tablet a day LEVOTHYROXINE SODIUM 75594801188 Active Baltazar Childers MD Active TRUE METRIX AIR GLUCOSE METER DEVICE Use as directed BLOOD GLUCOSE MONITORING SUPPL 11400381580 Active Baltazar Childers MD Activ e TRUE METRIX BLOOD GLUCOSE TEST IN VITRO STRIP test blood sug ar BID Dx: E11.65 GLUCOSE BLOOD 44661562806 Active KENDALL Juarez Active NORTRIPTYLINE HCL 50 MG ORAL CAPSULE 1 twice a day for neuropathy 2 NORTRIPTYLINE HCL 10096695214 Active Baltazar Childers MD Acti ve ASPIRIN 81 MG TBEC Take one (1) tablet by mouth daily ASPIRIN 64666011835 Active Baltazar Childers MD Active GABAPENTIN 300 MG ORAL CAPSULE 1 three times a day 201 12/03/26 GABAPENTIN 20197848341 No Longer Active Baltazar Childers MD Activ e LISINOPRIL 20 MG ORAL TABLET 1 tablet by mouth daily at night 2016 LISINOPRIL 88690438001 Active KENDALL Juarez Active ZITHROMAX Z-ISAIAS 250 MG ORAL TABLET Take two tablets to day and then 1 tablet daily for 4 days AZITHROMYCIN 34819662081 No Longer A ctive Baltazar Childers MD Active AMLODIPINE BESYLATE 5 MG ORAL TABLET 1 tab daily for HTN AMLODIPINE BESYLATE 74232355120 Active Baltazar Childers MD Active GLIPIZIDE 10 MG ORAL TABLET take 2 tablets twice daily GLIPIZIDE 97371679527 Active Baltazar Childers MD Active SUCRALFATE 1 GM ORAL TABLET 1 four times a day to coat the stoma ch SUCRALFATE 86142832331 No Longer Active Baltazar Childers MD Active PEN NEEDLES 31G X 6 MM use 1 daily INSULIN PEN NE EDLE 83524575473 Active KENDALL Juarez Active TOUJEO SOLOSTAR 300 UNIT/ML SUBCUTANEOUS SOLUTION PEN- INJECTOR 10 units SC daily INSULIN GLARGINE 14922049196 No Longer Active Rola ARGUETA Active NAPROXEN SODIUM 220 MG ORAL TABLET 1 three times a day as needed NAPROXEN SODIUM 19038442955 No Longer Active Baltazar Childers MD Active ATORVASTATIN CALCIUM 20 MG ORAL TABLET Take 1 tab daily ATORVASTATIN CALCIUM 51305378891 Active Baltazar Childers MD A ctive FUROSEMIDE 40 MG ORAL TABLET Take one by mouth daily FUROSEMIDE 23176226185 Active Baltazar Childers MD Active LISINOPRIL 20 MG ORAL TABLET Take one by mouth daily at bedtime LISINOPRIL 85226300678 No Longer Active Baltazar Childers MD Active ONETOUCH ULTRA BLUE IN VITRO STRIP Test twice a day 07/11/11 GLUCOSE BLOOD 03453393252 No Longer Active Baltazar Childers MD Acti ve TRUEPLUS LANCETS 33G Test twice a day LANCETS 8315614 6460 Active KENDALL Juarez Active TRUEDRAW LANCING DEVICE Test twice a day LANCET DEVICES 72621242406 Active Baltazar Childers MD Active TRUETRACK BLOOD GLUCOSE w/Device KIT Test twice a day BLOOD GLUCOSE MONITORING SUPPL 18847893429 Active Baltazar Childers MD Activ e HYDROCODONE-ACETAMINOPHEN 7.5-325 MG ORAL TABLET Take 1 tab every 6-8 hours PRN HYDROCODONE-ACETAMINOPHEN 54153285573 Active Baltazar Nickerson MD Active GABAPENTIN 300 MG ORAL CAPSULE 1 po qd x 2 days, then 1 po BID x 2 days, then 1 po TID GABAPENTIN 30299382881 No Longer Active Baltazar Childers MD Active NAPROXEN 500 MG ORAL TABLET 1 tablet by mouth twice daily NAPROXEN 38363091989 No Longer Active Baltazar Childers MD Active PROAIR HFA 108 (90 Base) MCG/ACT INHALATION AEROSOL SO LUTION 2 puffs four times a day as needed ALBUTEROL SULFATE 98207063323 Active Shun Arellano LPN Active DEPO-TESTOSTERONE 200 MG/ML INTRAMUSCULAR SOLUTION as directed TESTOSTERONE CYPIONATE 51273441059 No Longer Active Batlazar Childers MD Active LIPITOR 20 MG ORAL TABLET Take one by mouth daily in evening ATORVASTATIN CALCIUM 77080228183 No Longer Active Baltazar Childers MD Active CRESTOR 10 MG ORAL TABLET 1 by mouth every day ROSUVASTATIN CALCIUM 31182107006 No Longer Active Baltazar Childers MD Active PHENTERMINE HCL 37.5 MG ORAL TABLET Take one by mouth daily PHENTERMINE HCL 78946878400 No Longer Active Baltazar Childers MD Ac tive TIZANIDINE HCL 4 MG ORAL TABLET 1 daily as needed for muscle spa sm TIZANIDINE HCL 59050929379 No Longer Active Dawna Salazar RN Active [id number] 50-325-40 MG ORAL TABLET 1 fo ur times a day as needed for heacache [id number] 64584511843 Active Beth Carr, RMA Active SUMATRIPTAN SUCCINATE 100 MG ORAL TABLET 1 tablet by m outh at onset of migraine as needed SUMATRIPTAN SUCCINATE 79597313403 Active Beth KENDALL Laura Active LORATADINE 10 MG ORAL TABLET Take one by mouth daily LORATADINE 47030714711 Active Baltazar Childers MD Active OMEPRAZOLE 20 MG ORAL CAPSULE DELAYED RELEASE Take one by mouth jostin ly OMEPRAZOLE 42443393938 Active Baltazar Childers MD Active HYDROXYZINE HCL 25 MG ORAL TABLET Take one by mouth daily HYDROXYZINE HCL 80802983891 Active Baltazar Childers MD Active ALPRAZOLAM 1 MG ORAL TABLET 1 tablet by mouth daily at bedti tn for restless leg ALPRAZOLAM 42110914355 Active Baltazar Childers MD Active METFORMIN HCL 1000 MG ORAL TABLET Take one by mouth twice daily METFORMIN HCL 47206310535 Active Baltazar Childers MD Active TIZANIDINE HCL 4 MG ORAL TABLET 1 daily as needed for muscle spa sm TIZANIDINE HCL 4 MG ORAL TABLET 123623 TIZANIDINE HCL Inactive PHENTERMINE HCL 37.5 MG ORAL TABLET Take one by mouth daily PHENTERMINE HCL 37.5 MG ORAL TABLET 776838 PHENTERMINE HCL Inac tive CRESTOR 10 MG ORAL TABLET 1 by mouth every day CRESTOR 10 MG ORAL TABLET 122870 ROSUVASTATIN CALCIUM Inactive LIPITOR 20 MG ORAL TABLET Take one by mouth daily in evening LIPITOR 20 MG ORAL TABLET 813298 ATORVASTATIN CALCIUM Inactive DEPO-TESTOSTERONE 200 MG/ML INTRAMUSCULAR SOLUTION as directed DEPO-TESTOSTERONE 200 MG/ML INTRAMUSCULAR SOLUTION 9142633 RUFINO TOSTERONE CYPIONATE Inactive NAPROXEN 500 MG ORAL TABLET 1 tablet by mouth twice daily NAPROXEN 500 MG ORAL TABLET 464181 NAPROXEN Inactive GABAPENTIN 300 MG ORAL CAPSULE 1 po qd x 2 days, then 1 po BID x 2 days, then 1 po TID GABAPENTIN 300 MG ORAL CAPSULE 789125 GABAP ENTIN Inactive ONETOUCH ULTRA BLUE IN VITRO STRIP Test twice a day 07/11/11 [place] ULTRA BLUE IN VITRO STRIP GLUCOSE BLOOD Inact amie NAPROXEN SODIUM 220 MG ORAL TABLET 1 three times a day as needed NAPROXEN SODIUM 220 MG ORAL TABLET 641826 NAPROXEN SODI UM Inactive TOUJEO SOLOSTAR 300 UNIT/ML SUBCUTANEOUS SOLUTION PEN- INJECTOR 10 units SC daily TOUJEO SOLOSTAR 300 UNIT/ML SUBCUTANEOUS SOLUTION PEN-INJECTOR INSULIN GLARGINE Inactive SUCRALFATE 1 GM ORAL TABLET 1 four times a day to coat the stoma ch SUCRALFATE 1 GM ORAL TABLET 978775 SUCRALFATE Inac tive GABAPENTIN 300 MG ORAL CAPSULE 1 three times a day 201 12/03/26 GABAPENTIN 300 MG ORAL CAPSULE 220516 GABAPENTIN Inactive TRAMADOL HCL 50 MG ORAL TABLET 1 twice a day as needed for pain TRAMADOL HCL 50 MG ORAL TABLET 480074 TRAMADOL HCL I nactive ZITHROMAX Z-ISAIAS 250 MG ORAL TABLET Take two tablets to day and then 1 tablet daily for 4 days ZITHROMAX Z-ISAIAS 250 MG ORAL TAB LET 364048 AZITHROMYCIN Inactive Immunizations Vaccine Administration Date Value Standard Floyd cription influenza immunization (Flu Vax) has been administered 05/11 Done according to patient influenza virus vaccine, unspecified for mulation pneumococcal immunization administered Pneumovax 23 [CVX33] pneumococcal polysaccharide vaccine, 23 valent Seasonal influenza vaccine, injectable, containing preservative, for > 3 years old (Afluria, FluLaval, Fluzone, Fluvirin, Fluarix, Agriflu(>= 18 yo)) Fluzone (>3 yrs.) [[id number]] Influenza, seasonal, inject able Seasonal influenza vaccine, injectable, containing preservative, for > 3 years old (Afluria, FluLaval, Fluzone, Fluvirin, Fluarix, Agriflu(>= 18 yo)) Fluzone (>3 yrs.) [QCG862] Influenza, seasonal, inject able Vital Signs Date [...] - Chem istry sodium, serum 139 mmol/L 542-985 9884/06/26 potassium, serum 4.8 mmol/L 3.5-5.2 chloride, serum [...] 8.5 % 4.3-6.0 sodium, serum 142 mmol/L 666-762 9417/12/18 carbon dioxide, venous blood 32.5 mmol/L 21.0-32 [...] 0.40 mg/dL 0.00-1.00 cholesterol, serum 218 mg/dL 335-369 4626/12/18 triglyceride, serum, fasting 357 mg/dL 30-200 HDL [...] 0.36-3.74 Encounters Code Encounter Date Provider Facility CPT-31827 [id number] Vst-Est Level IV 15:12:52 FAMILY PRACTICE PHYSICIAN Charlie Childers MD [facility] CPT-78514 [id number] Vst-Est Level IV 15:30:55 FAMILY PRACTICE PHYSICIAN Charlie Childers MD [facility] CPT-63777 [id number] Vst-Est Level IV 13:49:06 [facility] [place] [facility] Level 4 Est. Patient 17:26:08 [facility] [id number] Vst-Est Level V 14:26:27 CDT Aneudy Childers MD [facility]-72650 Level 4 Est. Patient 17:05:37 CDT Baltaazr Childers MD [facility]-85288 Level 4 Est. Patient 16:21:19 FAMILY PRACTICE PHYSICIAN Baltazar Childers MD [facility]-07689 Level 4 Est. Patient 12:25:11 CDT Baltazar Childers MD [facility]-95783 Level 4 Est. Patient 14:22:31 CDT Baltazar Childers MD [facility]-84572 Level 4 Est. Patient 15:44:38 CDT Shonna Parker APRN [facility]-26611 Level 4 Est. Patient 11:34:17 CDT Baltazar Childers MD [facility]-71019 Level 3 Est. Patient 16:40:40 CDT Baltazar Childers MD [facility]-48856 Level 4 Est. Patient 10:41:24 CDT Baltazar Childers MD [facility]-83321 Level 4 Est. Patient 16:01:48 CDT Baltazar Childers MD [facility]-11992 Level 4 Est. Patient 16:54:07 FAMILY PRACTICE PHYSICIAN Baltazar Childers MD [facility]-39895 Level 4 Est. Patient 15:42:12 CDT Baltazar Childers MD [facility] CPT-30577 Level 4 Est. Patient 11:29:55 CDT Baltazar Childers MD [facility] CPT-92934 Level 4 Est. Patient 14:15:19 CDT Baltazar Childers MD [facility] CPT-42435 Level 4 Est. Patient 12:20:13 CDT Baltazar Childers MD [facility] CPT-53322 Level 4 Est. Patient 14:52:45 FAMILY PRACTICE PHYSICIAN Baltazar Childers MD [facility] CPT-38751 Level 4 Est. Patient 14:18:34 FAMILY PRACTICE PHYSICIAN Baltazar Childers MD [facility] CPT-57724 Level 4 Est. Patient 15:18:29 CDT Baltazar Childers MD [facility] CPT-64082 Level 3 Est. Patient 12:45:34 CDT Baltazar Childers MD [facility] CPT-39761 Level 3 Est. Patient 10:10:11 CDT Baltazar Childers MD [facility] CPT-71516 Level 3 Est. Patient 14:07:50 CDT Baltazar Childers MD [facility] CPT-60077 Level 4 Est. Patient 12:26:10 FAMILY PRACTICE PHYSICIAN Baltazar Childers MD [facility] CPT-61512 Level 4 Est. Patient 14:45:38 CDT Baltazar Childers MD [facility] CPT-56219 Level 4 New Patient 12:30:48 CDT Baltazar hinton MD [facility] Procedures Code Procedure Name Date Entry Date Standard Desc ription CPT-000 Give Appropriate Flu Vaccine 12:25:14 CDT 2 CPT-87832 First Vx - Ix admin via ID I M or jet injects without counseling by physician 13:08:59 CDT CPT-97186 Fluzone Quadrivalent Intramuscular Suspe nsion 0.5 ML 13:08:59 CDT CPT-92768 Venipuncture Draw Fee 12:04:12 CDT CPT-23956 Lipid - LAB USE ONLY 17:39:15 FAMILY PRACTICE PHYSICIAN 9 CPT-45026 HGBA1C - LAB USE ONLY 17:39:15 FAMILY PRACTICE PHYSICIAN CPT-32219 CMP - LAB USE ONLY 17:39:14 FAMILY PRACTICE PHYSICIAN CPT-12076 Venipuncture Draw Fee 17:39:14 FAMILY PRACTICE PHYSICIAN CPT-77054 First Vx - Ix admin via ID I M or jet injects without counseling by physician 16:55:17 FAMILY PRACTICE PHYSICIAN CPT-41999 Fluzone Quadrivalent Intramuscular Suspe nsion 0.5 ML 16:55:17 FAMILY PRACTICE PHYSICIAN CPT-35985 Renal Panel - LAB USE ONLY 17:39:20 CDT 201 10/31/07 CPT-28374 CBC - LAB USE ONLY 17:39:20 CDT CPT-35194 Venipuncture Draw Fee 17:39:20 CDT CPT-80214 Venipuncture Draw Fee 14:33:30 CDT CPT-62407 Renal Panel - LAB USE ONLY 14:33:30 CDT 201 10/31/07 CPT-65647 CBC - LAB USE ONLY 14:33:29 CDT CPT-05065 Venipuncture Draw Fee 14:50:21 FAMILY PRACTICE PHYSICIAN CPT-74241 Immunization Single Admin 17:35:35 CDT 2014 CPT-87933 Fluzone Quadrivalent preservative free ( >=3yrs.) 17:35:35 CDT CPT-46902 Venipuncture Draw Fee 12:10:27 FAMILY PRACTICE PHYSICIAN CPT-27667 Fluzone Quadrivalent Intramuscular Suspe nsion 0.5 ML 10:49:13 CDT CPT-29607 First Vx Component - Ix admi n via ID IM or jet inj without physician counseling 15:17:19 FAMILY PRACTICE PHYSICIAN CPT-25253 Pneumovax 15:17:19 FAMILY PRACTICE PHYSICIAN CPT-37775 Pneumovax 14:52:45 FAMILY PRACTICE PHYSICIAN CPT-93858 Venipuncture Draw Fee 14:06:30 FAMILY PRACTICE PHYSICIAN CPT-000 Give Appropriate Flu Vaccine 14:18:34 FAMILY PRACTICE PHYSICIAN 2 CPT-45938 Administration single or combination vac cine inc oral 14:46:00 FAMILY PRACTICE PHYSICIAN CPT-15359 Influenza split virus > age 3 14:46:00 FAMILY PRACTICE PHYSICIAN CPT-OV Office Visit 19:13:16 CDT CPT-57394 Zostavax 18:41:56 CDT CPT-88608 Administration single or combination vac cine inc oral 12:56:39 CDT CPT-67256 Zoster Vaccine (Zostavax) 12:56:39 CDT 2012 CPT-66245 Venipuncture Draw Fee 10:58:57 CDT CPT-12867 Sono pelvis non OB uterus ovaries cervix 17:45:04 CDT CPT-26499 Sono retroperitoneal complete kidneys an d bladder 17:14:36 CDT CPT-OV Office Visit 14:59:38 FAMILY PRACTICE PHYSICIAN CPT-J1070 Depo Testosterone 100 mg 14:50:13 CDT 03/05 CPT-25804 Abx/Therapy Injection 14:50:13 CDT CPT-91262 Administration single or combination vac cine inc oral 14:34:43 CDT CPT-94050 Influenza split virus > age 3 14:34:43 CDT CPT-J1070 Depo Testosterone 100 mg 17:37:13 CDT 01/11 CPT-96896 Abx/Therapy Injection 17:37:13 CDT CPT-31317 Venipuncture Draw Fee 16:30:13 CDT CPT-70559 Venipuncture Draw Fee 16:29:43 CDT CPT-J1070 Depo Testosterone 100 mg 14:45:38 CDT 01/11
--- OUTSIDE RECORDS SUMMARY | 2019-10-27 11:46 | XMS REPORT | Clinical Summary ---
Author Author Admin, Elba Lance [facility] Address Unknown Phone Unavailable Allergies, Adverse [...] ronary atherosclerosis of unspecified type of vessel, [place] or graft OTH NONSPC ABN FINDNG RAD&OTH [...] INJECTOR 33 units SC daily INSULIN GLARGINE 14595864016 Active Baltazar Childers MD Active TRAMADOL HCL 50 MG ORAL TABLET 1 twice a day as needed for pain TRAMADOL HCL 39690609339 No Longer Active Baltazar Childers MD Active ROBAXIN 500 MG ORAL TABLET Take 1.5 (one and one half) tabs once daily METHOCARBAMOL 06578272799 Active Baltazar Childers MD Active SYNTHROID 112 MCG ORAL TABLET Take one tablet a day LEVOTHYROXINE SODIUM 24455800258 Active Batlazar Childers MD Active TRUE METRIX AIR GLUCOSE METER DEVICE Use as directed BLOOD GLUCOSE MONITORING SUPPL 55384638094 Active Baltazar Childers MD Activ e TRUE METRIX BLOOD GLUCOSE TEST IN VITRO STRIP test blood sug ar BID Dx: E11.65 GLUCOSE BLOOD 46327011558 Active KENDALL Juarez Active NORTRIPTYLINE HCL 50 MG ORAL CAPSULE 1 twice a day for neuropathy 2 NORTRIPTYLINE HCL 77967224956 Active Baltazar Childers MD Acti ve ASPIRIN 81 MG TBEC Take one (1) tablet by mouth daily ASPIRIN 34858622770 Active Baltazar Childers MD Active GABAPENTIN 300 MG ORAL CAPSULE 1 three times a day 201 12/03/26 GABAPENTIN 57759778750 No Longer Active Baltazar Childers MD Activ e LISINOPRIL 20 MG ORAL TABLET 1 tablet by mouth daily at night 2016 LISINOPRIL 06076663212 Active Baltazar Childers MD Active ZITHROMAX Z-ISAIAS 250 MG ORAL TABLET Take two tablets to day and then 1 tablet daily for 4 days AZITHROMYCIN 85081150864 No Longer A ctive Baltazar Childers MD Active AMLODIPINE BESYLATE 5 MG ORAL TABLET 1 tab daily for HTN AMLODIPINE BESYLATE 80157779900 Active Baltazar Childers MD Active GLIPIZIDE 10 MG ORAL TABLET take 2 tablets twice daily GLIPIZIDE 03311429466 Active Baltazar Childers MD Active SUCRALFATE 1 GM ORAL TABLET 1 four times a day to coat the stoma ch SUCRALFATE 44975411742 No Longer Active Baltazar Childers MD Active PEN NEEDLES 31G X 6 MM use 1 daily INSULIN PEN NE EDLE 86610785565 Active KENDALL Juarez Active TOZULEIKA SOLOSTAR 300 UNIT/ML SUBCUTANEOUS SOLUTION PEN- INJECTOR 10 units SC daily INSULIN GLARGINE 00566508048 No Longer Active Rola ARGUETA Active NAPROXEN SODIUM 220 MG ORAL TABLET 1 three times a day as needed NAPROXEN SODIUM 42644402317 No Longer Active Baltazar Childers MD Active ATORVASTATIN CALCIUM 20 MG ORAL TABLET Take 1 tab daily ATORVASTATIN CALCIUM 18321632336 Active Baltazar Childers MD A ctive FUROSEMIDE 40 MG ORAL TABLET Take one by mouth daily FUROSEMIDE 63738383745 Active Baltazar Childers MD Active LISINOPRIL 20 MG ORAL TABLET Take one by mouth daily at bedtime LISINOPRIL 83105685841 No Longer Active Baltazar Childers MD Active ONETOUCH ULTRA BLUE IN VITRO STRIP Test twice a day 07/11/11 GLUCOSE BLOOD 21068128383 No Longer Active Baltazar Childers MD Acti ve TRUEPLUS LANCETS 33G Test twice a day LANCETS 3508348 3404 Active KENDALL Juarez Active TRUEDRAW LANCING DEVICE Test twice a day LANCET DEVICES 15995705088 Active Baltazar Childers MD Active TRUETRACK BLOOD GLUCOSE w/Device KIT Test twice a day BLOOD GLUCOSE MONITORING SUPPL 50382680664 Active Baltazar Childers MD Activ e HYDROCODONE-ACETAMINOPHEN 7.5-325 MG ORAL TABLET Take 1 tab every 6-8 hours PRN HYDROCODONE-ACETAMINOPHEN 08210611977 Active Baltazar Nickerson MD Active GABAPENTIN 300 MG ORAL CAPSULE 1 po qd x 2 days, then 1 po BID x 2 days, then 1 po TID GABAPENTIN 75622263368 No Longer Active Baltazar Childers MD Active NAPROXEN 500 MG ORAL TABLET 1 tablet by mouth twice daily NAPROXEN 34917823914 No Longer Active Baltazar Childers MD Active PROAIR HFA 108 (90 Base) MCG/ACT INHALATION AEROSOL SO LUTION 2 puffs four times a day as needed ALBUTEROL SULFATE 90288822177 Active Shun Arellano LPN Active DEPO-TESTOSTERONE 200 MG/ML INTRAMUSCULAR SOLUTION as directed TESTOSTERONE CYPIONATE 47671068156 No Longer Active Baltazar Childers MD Active LIPITOR 20 MG ORAL TABLET Take one by mouth daily in evening ATORVASTATIN CALCIUM 97233588896 No Longer Active Baltazar Childers MD Active CRESTOR 10 MG ORAL TABLET 1 by mouth every day ROSUVASTATIN CALCIUM 65834551102 No Longer Active Baltazar Childers MD Active PHENTERMINE HCL 37.5 MG ORAL TABLET Take one by mouth daily PHENTERMINE HCL 53822679185 No Longer Active Baltazar Childers MD Ac tive TIZANIDINE HCL 4 MG ORAL TABLET 1 daily as needed for muscle spa sm TIZANIDINE HCL 11444484339 No Longer Active Dawna Salazar RN Active [id number] 50-325-40 MG ORAL TABLET 1 fo ur times a day as needed for heacache [id number] 88313619930 Active Beth Carr, RMA Active SUMATRIPTAN SUCCINATE 100 MG ORAL TABLET 1 tablet by m outh at onset of migraine as needed SUMATRIPTAN SUCCINATE 56192968800 Active Baltazar Nickerson MD Active LORATADINE 10 MG ORAL TABLET Take one by mouth daily LORATADINE 65522684824 Active Baltazar Childers MD Active OMEPRAZOLE 20 MG ORAL CAPSULE DELAYED RELEASE Take one by mouth jostin ly OMEPRAZOLE 26884199064 Active Baltazar Childers MD Active HYDROXYZINE HCL 25 MG ORAL TABLET Take one by mouth daily HYDROXYZINE HCL 35793148373 Active Baltazar Childers MD Active ALPRAZOLAM 1 MG ORAL TABLET 1 [facility] 73119599302 Active Baltazar Childers MD Active METFORMIN HCL 1000 MG ORAL TABLET Take one by mouth twice daily METFORMIN HCL 40763010578 Active Baltazar Childers MD Active TIZANIDINE HCL 4 MG ORAL TABLET 1 daily as needed for muscle spa sm TIZANIDINE HCL 4 MG ORAL TABLET 370160 TIZANIDINE HCL Inactive PHENTERMINE HCL 37.5 MG ORAL TABLET Take one by mouth daily PHENTERMINE HCL 37.5 MG ORAL TABLET 590625 PHENTERMINE HCL Inac tive CRESTOR 10 MG ORAL TABLET 1 by mouth every day CRESTOR 10 MG ORAL TABLET 736306 ROSUVASTATIN CALCIUM Inactive LIPITOR 20 MG ORAL TABLET Take one by mouth daily in evening LIPITOR 20 MG ORAL TABLET 640449 ATORVASTATIN CALCIUM Inactive DEPO-TESTOSTERONE 200 MG/ML INTRAMUSCULAR SOLUTION as directed DEPO-TESTOSTERONE 200 MG/ML INTRAMUSCULAR SOLUTION 9111643 RUFINO TOSTERONE CYPIONATE Inactive NAPROXEN 500 MG ORAL TABLET 1 tablet by mouth twice daily NAPROXEN 500 MG ORAL TABLET 882852 NAPROXEN Inactive GABAPENTIN 300 MG ORAL CAPSULE 1 po qd x 2 days, then 1 po BID x 2 days, then 1 po TID GABAPENTIN 300 MG ORAL CAPSULE 438542 GABAP ENTIN Inactive ONETOUCH ULTRA BLUE IN VITRO STRIP Test twice a day 07/11/11 ONETOUCH ULTRA BLUE IN VITRO STRIP GLUCOSE BLOOD Inact amie NAPROXEN SODIUM 220 MG ORAL TABLET 1 three times a day as needed NAPROXEN SODIUM 220 MG ORAL TABLET 919837 NAPROXEN SODI UM Inactive TOUJEO SOLOSTAR 300 UNIT/ML SUBCUTANEOUS SOLUTION PEN- INJECTOR 10 units SC daily TOUJEO SOLOSTAR 300 UNIT/ML SUBCUTANEOUS SOLUTION PEN-INJECTOR INSULIN GLARGINE Inactive SUCRALFATE 1 GM ORAL TABLET 1 four times a day to coat the stoma ch SUCRALFATE 1 GM ORAL TABLET 588496 SUCRALFATE Inac tive GABAPENTIN 300 MG ORAL CAPSULE 1 three times a day 201 12/03/26 GABAPENTIN 300 MG ORAL CAPSULE 754324 GABAPENTIN Inactive TRAMADOL HCL 50 MG ORAL TABLET 1 twice a day as needed for pain TRAMADOL HCL 50 MG ORAL TABLET 893520 TRAMADOL HCL I nactive ZITHROMAX Z-ISAIAS 250 MG ORAL TABLET Take two tablets to day and then 1 tablet daily for 4 days ZITHROMAX Z-ISAIAS 250 MG ORAL TAB LET 462345 AZITHROMYCIN Inactive Immunizations Vaccine Administration Date Value Standard Floyd cription influenza immunization (Flu Vax) has been administered 05/11 Done according to patient influenza virus vaccine, unspecified for mulation pneumococcal immunization administered Pneumovax 23 [CVX33] pneumococcal polysaccharide vaccine, 23 valent Seasonal influenza vaccine, injectable, containing preservative, for > 3 years old (Afluria, FluLaval, Fluzone, Fluvirin, Fluarix, Agriflu(>= 18 yo)) Fluzone (>3 yrs.) [BPG552] Influenza, seasonal, inject able Seasonal influenza vaccine, injectable, containing preservative, for > 3 years old (Afluria, FluLaval, Fluzone, Fluvirin, Fluarix, Agriflu(>= 18 yo)) Fluzone (>3 yrs.) [RRJ140] Influenza, seasonal, inject able Vital Signs Date [...] - Chem istry sodium, serum 139 mmol/L 573-601 2056/06/26 potassium, serum 4.8 mmol/L 3.5-5.2 chloride, serum [...] 8.5 % 4.3-6.0 sodium, serum 142 mmol/L 398-303 0675/12/18 carbon dioxide, venous blood 32.5 mmol/L 21.0-32 [...] 0.40 mg/dL 0.00-1.00 cholesterol, serum 218 mg/dL 293-333 6073/12/18 triglyceride, serum, fasting 357 mg/dL 30-200 HDL [...] 0.36-3.74 Encounters Code Encounter Date Provider Facility CPT-87186 [id number] Vst-Est Level IV 15:14:58 CDT Charlie Childers MD [facility] CPT-88796 47133-Lcu Vst-Est Level IV 15:12:52 AUDIO SPECIALIST Charlie Childers MD [facility] CPT-73272 [id number] Vst-Est Level IV 15:30:55 AUDIO SPECIALIST Charlie Childers MD [facility]-44717 [id number] Vst-Est Level IV 13:49:06 C DT Ann Martinez PA-C [facility] CPT-51508 Level 4 Est. Patient 17:26:08 CDT Ann trujillo PA-C [facility] CPT-86374 96659-Uym Vst-Est Level V 14:26:27 CDT Aneudy Childers MD [facility] CPT-93969 Level 4 Est. Patient 17:05:37 CDT Baltazar Childers MD [facility] CPT-41663 Level 4 Est. Patient 16:21:19 AUDIO SPECIALIST Baltazar Childers MD [facility] CPT-20252 Level 4 Est. Patient 12:25:11 CDT Baltazar Childers MD [facility] CPT-01727 Level 4 Est. Patient 14:22:31 CDT Baltaazr Childers MD [facility] CPT-90389 Level 4 Est. Patient 15:44:38 CDT Shonna Parker APRN [facility] CPT-25707 Level 4 Est. Patient 11:34:17 CDT Baltazar Childers MD [facility]-53077 Level 3 Est. Patient 16:40:40 CDT Baltazar Childers MD [facility]-52560 Level 4 Est. Patient 10:41:24 CDT Baltazar Childers MD [facility]-92308 Level 4 Est. Patient 16:01:48 CDT Baltazar Childers MD [facility]-07933 Level 4 Est. Patient 16:54:07 AUDIO SPECIALIST Baltazar Childers MD [facility]-72121 Level 4 Est. Patient 15:42:12 CDT Baltazar Childers MD [facility] CPT-75836 Level 4 Est. Patient 11:29:55 CDT Baltazar Childers MD [facility] CPT-55058 Level 4 Est. Patient 14:15:19 CDT Baltazar Childers MD [facility] CPT-65838 Level 4 Est. Patient 12:20:13 CDT Baltazar Childers MD [facility] CPT-95152 Level 4 Est. Patient 14:52:45 AUDIO SPECIALIST Baltazar Childers MD [facility] CPT-54828 Level 4 Est. Patient 14:18:34 AUDIO SPECIALIST Baltazar Childers MD [facility] CPT-09225 Level 4 Est. Patient 15:18:29 CDT Baltazar Childers MD [facility] CPT-72502 Level 3 Est. Patient 12:45:34 CDT Baltazar Childers MD [facility] CPT-61300 Level 3 Est. Patient 10:10:11 CDT Baltazar Childers MD [facility] CPT-25548 Level 3 Est. Patient 14:07:50 CDT Baltazar Childers MD [facility] CPT-07608 Level 4 Est. Patient 12:26:10 AUDIO SPECIALIST Baltazar Childers MD [facility] CPT-66810 Level 4 Est. Patient 14:45:38 CDT Baltazar Childers MD [facility] CPT-49428 Level 4 New Patient 12:30:48 CDT Baltazar hinton MD [facility] Procedures Code Procedure Name Date Entry Date Standard Desc ription CPT-000 Give Appropriate Flu Vaccine 12:25:14 CDT 2 CPT-67139 First Vx - Ix admin via ID I M or jet injects without counseling by physician 13:08:59 CDT CPT-34763 Fluzone Quadrivalent Intramuscular Suspe nsion 0.5 ML 13:08:59 CDT CPT-86531 Venipuncture Draw Fee 12:04:12 CDT CPT-34987 Lipid - LAB USE ONLY 17:39:15 AUDIO SPECIALIST 9 CPT-57968 HGBA1C - LAB USE ONLY 17:39:15 AUDIO SPECIALIST CPT-81696 CMP - LAB USE ONLY 17:39:14 AUDIO SPECIALIST CPT-01546 Venipuncture Draw Fee 17:39:14 AUDIO SPECIALIST CPT-70357 First Vx - Ix admin via ID I M or jet injects without counseling by physician 16:55:17 AUDIO SPECIALIST CPT-34701 Fluzone Quadrivalent Intramuscular Suspe nsion 0.5 ML 16:55:17 AUDIO SPECIALIST CPT-51939 Renal Panel - LAB USE ONLY 17:39:20 CDT 201 10/31/07 CPT-85070 CBC - LAB USE ONLY 17:39:20 CDT CPT-97878 Venipuncture Draw Fee 17:39:20 CDT CPT-63820 Venipuncture Draw Fee 14:33:30 CDT CPT-03149 Renal Panel - LAB USE ONLY 14:33:30 CDT 201 10/31/07 CPT-42301 CBC - LAB USE ONLY 14:33:29 CDT CPT-43151 Venipuncture Draw Fee 14:50:21 AUDIO SPECIALIST CPT-54940 Immunization Single Admin 17:35:35 CDT 2014 CPT-49931 Fluzone Quadrivalent preservative free ( >=3yrs.) 17:35:35 CDT CPT-15695 Venipuncture Draw Fee 12:10:27 AUDIO SPECIALIST CPT-84639 Fluzone Quadrivalent Intramuscular Suspe nsion 0.5 ML 10:49:13 CDT CPT-37236 First Vx Component - Ix admi n via ID IM or jet inj without physician counseling 15:17:19 AUDIO SPECIALIST CPT-53508 Pneumovax 23 15:17:19 AUDIO SPECIALIST CPT-46850 Pneumovax 14:52:45 AUDIO SPECIALIST CPT-71494 Venipuncture Draw Fee 14:06:30 AUDIO SPECIALIST CPT-000 Give Appropriate Flu Vaccine 14:18:34 AUDIO SPECIALIST 2 CPT-76531 Administration single or combination vac cine inc oral 14:46:00 AUDIO SPECIALIST CPT-81620 Influenza split virus > age 3 14:46:00 AUDIO SPECIALIST CPT-OV Office Visit 19:13:16 CDT CPT-32513 Zostavax 18:41:56 CDT CPT-58177 Administration single or combination vac cine inc oral 12:56:39 CDT CPT-74945 Zoster Vaccine (Zostavax) 12:56:39 CDT 2012 CPT-55278 Venipuncture Draw Fee 10:58:57 CDT CPT-60241 Sono pelvis non OB uterus ovaries cervix 17:45:04 CDT CPT-81566 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
--- OUTSIDE RECORDS SUMMARY | 2019-10-27 11:47 | XMS REPORT | Clinical Summary ---
Author Author Admin, Elba Lance Zigfu Address Unknown Phone Unavailable Allergies, Adverse Reactions, [...] INJECTOR 33 units SC daily INSULIN GLARGINE 60533932795 Active Baltazar Childers MD Active TRAMADOL HCL 50 MG ORAL TABLET 1 twice a day as needed for pain TRAMADOL HCL 07545530797 No Longer Active Baltazar Childers MD Active ROBAXIN 500 MG ORAL TABLET Take 1.5 (one and one half) tabs once daily METHOCARBAMOL 99160478018 Active Baltazar Childers MD Active SYNTHROID 112 MCG ORAL TABLET Take one tablet a day LEVOTHYROXINE SODIUM 09052365106 Active Baltazar Childers MD Active TRUE METRIX AIR GLUCOSE METER DEVICE Use as directed BLOOD GLUCOSE MONITORING SUPPL 46205801639 Active Baltazar Childers MD Activ e TRUE METRIX BLOOD GLUCOSE TEST IN VITRO STRIP test blood sug ar BID Dx: E11.65 GLUCOSE BLOOD 16709308457 Active KENDALL Juarez Active NORTRIPTYLINE HCL 50 MG ORAL CAPSULE 1 twice a day for neuropathy 2 NORTRIPTYLINE HCL 09668265216 Active Baltazar Childers MD Acti ve ASPIRIN 81 MG TBEC Take one (1) tablet by mouth daily ASPIRIN 12761634892 Active Baltazar Childers MD Active GABAPENTIN 300 MG ORAL CAPSULE 1 three times a day 201 12/03/26 GABAPENTIN 12389777845 No Longer Active Baltazar Childers MD Activ e LISINOPRIL 20 MG ORAL TABLET 1 tablet by mouth daily at night 2016 LISINOPRIL 47108040429 Active KENDALL Juarez Active ZITHROMAX Z-ISAIAS 250 MG ORAL TABLET Take two tablets to day and then 1 tablet daily for 4 days AZITHROMYCIN 34325161236 No Longer A ctive Baltazar Childers MD Active AMLODIPINE BESYLATE 5 MG ORAL TABLET 1 tab daily for HTN AMLODIPINE BESYLATE 97564274644 Active Baltazar Childers MD Active GLIPIZIDE 10 MG ORAL TABLET take 2 tablets twice daily GLIPIZIDE 75547524360 Active Baltazar Childers MD Active SUCRALFATE 1 GM ORAL TABLET 1 four times a day to coat the stoma ch SUCRALFATE 22058753125 No Longer Active Baltazar Childers MD Active PEN NEEDLES 31G X 6 MM use 1 daily INSULIN PEN NE EDLE 40427848049 Active KENDALL Juarez Active TOUJEO SOLOSTAR 300 UNIT/ML SUBCUTANEOUS SOLUTION PEN- INJECTOR 10 units SC daily INSULIN GLARGINE 26863229867 No Longer Active Rola ARGUETA Active NAPROXEN SODIUM 220 MG ORAL TABLET 1 three times a day as needed NAPROXEN SODIUM 26567143968 No Longer Active Baltazar Childers MD Active ATORVASTATIN CALCIUM 20 MG ORAL TABLET Take 1 tab daily ATORVASTATIN CALCIUM 69359828007 Active Baltazar Childers MD A ctive FUROSEMIDE 40 MG ORAL TABLET Take one by mouth daily FUROSEMIDE 34421036374 Active Baltazar Childers MD Active LISINOPRIL 20 MG ORAL TABLET Take one by mouth daily at bedtime LISINOPRIL 14787549671 No Longer Active Baltazar Childers MD Active ONETOUCH ULTRA BLUE IN VITRO STRIP Test twice a day 07/11/11 GLUCOSE BLOOD 57523674518 No Longer Active Baltazar Childers MD Acti ve TRUEPLUS LANCETS 33G Test twice a day LANCETS 0254986 2943 Active KENDALL Juarez Active TRUEDRAW LANCING DEVICE Test twice a day LANCET DEVICES 54831130733 Active Baltazar Childers MD Active TRUETRACK BLOOD GLUCOSE w/Device KIT Test twice a day BLOOD GLUCOSE MONITORING SUPPL 78939331158 Active Baltazar Childers MD Activ e HYDROCODONE-ACETAMINOPHEN 7.5-325 MG ORAL TABLET Take 1 tab every 6-8 hours PRN HYDROCODONE-ACETAMINOPHEN 86725153103 Active Baltazar Nickerson MD Active GABAPENTIN 300 MG ORAL CAPSULE 1 po qd x 2 days, then 1 po BID x 2 days, then 1 po TID GABAPENTIN 90694184879 No Longer Active Baltazar Childers MD Active NAPROXEN 500 MG ORAL TABLET 1 tablet by mouth twice daily NAPROXEN 12592203170 No Longer Active Baltazar Childers MD Active PROAIR HFA 108 (90 Base) MCG/ACT INHALATION AEROSOL SO LUTION 2 puffs four times a day as needed ALBUTEROL SULFATE 19188983330 Active Shun Arellano LPN Active DEPO-TESTOSTERONE 200 MG/ML INTRAMUSCULAR SOLUTION as directed TESTOSTERONE CYPIONATE 06088539368 No Longer Active Baltazar Childers MD Active LIPITOR 20 MG ORAL TABLET Take one by mouth daily in evening ATORVASTATIN CALCIUM 96858820958 No Longer Active Baltazar Childers MD Active CRESTOR 10 MG ORAL TABLET 1 by mouth every day ROSUVASTATIN CALCIUM 97691907974 No Longer Active Baltazar Childers MD Active PHENTERMINE HCL 37.5 MG ORAL TABLET Take one by mouth daily PHENTERMINE HCL 19832357793 No Longer Active Baltazar Childers MD Ac tive TIZANIDINE HCL 4 MG ORAL TABLET 1 daily as needed for muscle spa sm TIZANIDINE HCL 59497755646 No Longer Active Dawna Salazar RN Active [id number] 50-325-40 MG ORAL TABLET 1 fo ur times a day as needed for heacache [id number] 70146720226 Active Beth Carr RMA Active SUMATRIPTAN SUCCINATE 100 MG ORAL TABLET 1 tablet by m outh at onset of migraine as needed SUMATRIPTAN SUCCINATE 31378885447 Active Beth KENDALL Laura Active LORATADINE 10 MG ORAL TABLET Take one by mouth daily LORATADINE 12023475073 Active Baltazar Childers MD Active OMEPRAZOLE 20 MG ORAL CAPSULE DELAYED RELEASE Take one by mouth jostin ly OMEPRAZOLE 90776900213 Active Baltazar Childers MD Active HYDROXYZINE HCL 25 MG ORAL TABLET Take one by mouth daily HYDROXYZINE HCL 00782688665 Active Baltazar Childers MD Active ALPRAZOLAM 1 MG ORAL TABLET 1 tablet by mouth daily at bedti ca for restless leg ALPRAZOLAM 92453861433 Active Baltazar Childers MD Active METFORMIN HCL 1000 MG ORAL TABLET Take one by mouth twice daily METFORMIN HCL 70362444234 Active Baltazar Childers MD Active TIZANIDINE HCL 4 MG ORAL TABLET 1 daily as needed for muscle spa sm TIZANIDINE HCL 4 MG ORAL TABLET 964252 TIZANIDINE HCL Inactive PHENTERMINE HCL 37.5 MG ORAL TABLET Take one by mouth daily PHENTERMINE HCL 37.5 MG ORAL TABLET 657146 PHENTERMINE HCL Inac tive CRESTOR 10 MG ORAL TABLET 1 by mouth every day CRESTOR 10 MG ORAL TABLET 172474 ROSUVASTATIN CALCIUM Inactive LIPITOR 20 MG ORAL TABLET Take one by mouth daily in evening LIPITOR 20 MG ORAL TABLET 617495 ATORVASTATIN CALCIUM Inactive DEPO-TESTOSTERONE 200 MG/ML INTRAMUSCULAR SOLUTION as directed DEPO-TESTOSTERONE 200 MG/ML INTRAMUSCULAR SOLUTION 7358317 RUFINO TOSTERONE CYPIONATE Inactive NAPROXEN 500 MG ORAL TABLET 1 tablet by mouth twice daily NAPROXEN 500 MG ORAL TABLET 065618 NAPROXEN Inactive GABAPENTIN 300 MG ORAL CAPSULE 1 po qd x 2 days, then 1 po BID x 2 days, then 1 po TID GABAPENTIN 300 MG ORAL CAPSULE 644251 GABAP ENTIN Inactive ONETOUCH ULTRA BLUE IN VITRO STRIP Test twice a day 07/11/11 Miso MediaUCH ULTRA BLUE IN VITRO STRIP GLUCOSE BLOOD Inact amie NAPROXEN SODIUM 220 MG ORAL TABLET 1 three times a day as needed NAPROXEN SODIUM 220 MG ORAL TABLET 423843 NAPROXEN SODI UM Inactive TOUJEO SOLOSTAR 300 UNIT/ML SUBCUTANEOUS SOLUTION PEN- INJECTOR 10 units SC daily TOUJEO SOLOSTAR 300 UNIT/ML SUBCUTANEOUS SOLUTION PEN-INJECTOR INSULIN GLARGINE Inactive SUCRALFATE 1 GM ORAL TABLET 1 four times a day to coat the stoma ch SUCRALFATE 1 GM ORAL TABLET 226684 SUCRALFATE Inac tive GABAPENTIN 300 MG ORAL CAPSULE 1 three times a day 201 12/03/26 GABAPENTIN 300 MG ORAL CAPSULE 258741 GABAPENTIN Inactive TRAMADOL HCL 50 MG ORAL TABLET 1 twice a day as needed for pain TRAMADOL HCL 50 MG ORAL TABLET 001850 TRAMADOL HCL I nactive ZITHROMAX Z-ISAIAS 250 MG ORAL TABLET Take two tablets to day and then 1 tablet daily for 4 days ZITHROMAX Z-ISAIAS 250 MG ORAL TAB LET 639526 AZITHROMYCIN Inactive Immunizations Vaccine Administration Date Value Standard Floyd cription influenza immunization (Flu Vax) has been administered 05/11 Done according to patient influenza virus vaccine, unspecified for mulation pneumococcal immunization administered Pneumovax 23 [CVX33] pneumococcal polysaccharide vaccine, 23 valent Seasonal influenza vaccine, injectable, containing preservative, for > 3 years old (Afluria, FluLaval, Fluzone, Fluvirin, Fluarix, Agriflu(>= 18 yo)) Fluzone (>3 yrs.) [JHY518] Influenza, seasonal, inject able Seasonal influenza vaccine, injectable, containing preservative, for > 3 years old (Afluria, FluLaval, Fluzone, Fluvirin, Fluarix, Agriflu(>= 18 yo)) Fluzone (>3 yrs.) [CXZ140] Influenza, seasonal, inject able Vital Signs Date [...] - Chem istry sodium, serum 139 mmol/L 617-496 5179/06/26 potassium, serum 4.8 mmol/L 3.5-5.2 chloride, serum [...] 8.5 % 4.3-6.0 sodium, serum 142 mmol/L [phone]/12/18 carbon dioxide, venous blood 32.5 mmol/L 21.0-32 [...] 0.40 mg/dL 0.00-1.00 cholesterol, serum 218 mg/dL 440-918 1239/12/18 triglyceride, serum, fasting 357 mg/dL 30-200 HDL [...] 0.36-3.74 Encounters Code Encounter Date Provider Facility CPT-07405 [id number] Vst-Est Level IV 15:12:52 SHACKLER Charlie Childers MD [facility] CPT-63514 [id number] Vst-Est Level IV 15:30:55 SHACKLER Charlie Childers MD [facility] CPT-49619 [id number] Vst-Est Level IV 13:49:06 [facility] Level 4 Est[facility] 17:26:08 [id number] Vst-Est Level V 14:26:27 CDT Aneudy Childers MD [facility]-91354 Level 4 Est. Patient 17:05:37 CDT Baltazar Childers MD [facility]-53149 Level 4 Est. Patient 16:21:19 SHACKLER Baltazar Childers MD [facility]-17704 Level 4 Est. Patient 12:25:11 CDT Baltazar Childers MD [facility]-66123 Level 4 Est. Patient 14:22:31 CDT Baltazar Childers MD [facility]-14025 Level 4 Est. Patient 15:44:38 [facility] Patient 11:34:17 CDT Baltazar Childers MD [facility]-60177 Level 3 Est. Patient 16:40:40 CDT Baltazar Childers MD [facility]-68134 Level 4 Est. Patient 10:41:24 CDT Baltazar Childers MD [facility]-34202 Level 4 Est. Patient 16:01:48 CDT Baltazar Childers MD [facility]-65448 Level 4 Est. Patient 16:54:07 SHACKLER Baltazar Childers MD [facility]-48575 Level 4 Est. Patient 15:42:12 CDT Baltazar Childers MD [facility] CPT-88875 Level 4 Est. Patient 11:29:55 CDT Baltazar Childers MD [facility] CPT-23859 Level 4 Est. Patient 14:15:19 CDT Baltazar Childers MD [facility] CPT-33244 Level 4 Est. Patient 12:20:13 CDT Baltazar Childers MD [facility] CPT-18586 Level 4 Est. Patient 14:52:45 SHACKLER Baltazar Childers MD [facility] CPT-87314 Level 4 Est. Patient 14:18:34 SHACKLER Baltazar Childers MD [facility] CPT-39563 Level 4 Est. Patient 15:18:29 CDT Baltazar Childers MD [facility] CPT-20836 Level 3 Est. Patient 12:45:34 CDT Baltazar Childers MD [facility] CPT-12094 Level 3 Est. Patient 10:10:11 CDT Baltazar Childers MD [facility] CPT-32153 Level 3 Est. Patient 14:07:50 CDT Baltazar Childers MD [facility] CPT-96601 Level 4 Est. Patient 12:26:10 SHACKLER Baltazar Childers MD [facility] CPT-05057 Level 4 Est. Patient 14:45:38 CDT Baltazar Childers MD [facility] CPT-19741 Level 4 New Patient 12:30:48 CDT Baltazar hinton MD [facility] Procedures Code Procedure Name Date Entry Date Standard Desc ription CPT-000 Give Appropriate Flu Vaccine 12:25:14 CDT 2 CPT-19524 First Vx - Ix admin via ID I M or jet injects without counseling by physician 13:08:59 CDT CPT-02975 Fluzone Quadrivalent Intramuscular Suspe nsion 0.5 ML 13:08:59 CDT CPT-76333 Venipuncture Draw Fee 12:04:12 CDT CPT-39153 Lipid - LAB USE ONLY 17:39:15 SHACKLER 9 CPT-04535 HGBA1C - LAB USE ONLY 17:39:15 SHACKLER CPT-49495 CMP - LAB USE ONLY 17:39:14 SHACKLER CPT-52914 Venipuncture Draw Fee 17:39:14 SHACKLER CPT-58483 First Vx - Ix admin via ID I M or jet injects without counseling by physician 16:55:17 SHACKLER CPT-72854 Fluzone Quadrivalent Intramuscular Suspe nsion 0.5 ML 16:55:17 SHACKLER CPT-66757 Renal Panel - LAB USE ONLY 17:39:20 CDT 201 10/31/07 CPT-78833 CBC - LAB USE ONLY 17:39:20 CDT CPT-84924 Venipuncture Draw Fee 17:39:20 CDT CPT-37947 Venipuncture Draw Fee 14:33:30 CDT CPT-50408 Renal Panel - LAB USE ONLY 14:33:30 CDT 201 10/31/07 CPT-88500 CBC - LAB USE ONLY 14:33:29 CDT CPT-58862 Venipuncture Draw Fee 14:50:21 SHACKLER CPT-41598 Immunization Single Admin 17:35:35 CDT 2014 CPT-43471 Fluzone Quadrivalent preservative free ( >=3yrs.) 17:35:35 CDT CPT-36699 Venipuncture Draw Fee 12:10:27 SHACKLER CPT-51237 Fluzone Quadrivalent Intramuscular Suspe nsion 0.5 ML 10:49:13 CDT CPT-28362 First Vx Component - Ix admi n via ID IM or jet inj without physician counseling 15:17:19 SHACKLER CPT-21210 Pneumovax 15:17:19 SHACKLER CPT-43442 Pneumovax 14:52:45 SHACKLER CPT-17947 Venipuncture Draw Fee 14:06:30 SHACKLER CPT-000 Give Appropriate Flu Vaccine 14:18:34 SHACKLER 2 CPT-54829 Administration single or combination vac cine inc oral 14:46:00 SHACKLER CPT-84870 Influenza split virus > age 3 14:46:00 SHACKLER CPT-OV Office Visit 19:13:16 CDT CPT-02060 Zostavax 18:41:56 CDT CPT-20456 Administration single or combination vac cine inc oral 12:56:39 CDT CPT-10454 Zoster Vaccine (Zostavax) 12:56:39 CDT 2012 CPT-75873 Venipuncture Draw Fee 10:58:57 CDT CPT-97637 Sono pelvis non OB uterus ovaries cervix 17:45:04 CDT CPT-58001 Sono retroperitoneal complete kidneys an d bladder 17:14:36 CDT CPT-OV Office Visit 14:59:38 SHACKLER CPT-J1070 Depo Testosterone 100 mg 14:50:13 CDT 03/05 CPT-15270 Abx/Therapy Injection 14:50:13 CDT CPT-64622 Administration single or combination vac cine inc oral 14:34:43 CDT CPT-27576 Influenza split virus > age 3 14:34:43 CDT CPT-J1070 Depo Testosterone 100 mg 17:37:13 CDT 01/11 CPT-56036 Abx/Therapy Injection 17:37:13 CDT CPT-15349 Venipuncture Draw Fee 16:30:13 CDT CPT-06101 Venipuncture Draw Fee 16:29:43 CDT CPT-J1070 Depo Testosterone 100 mg 14:45:38 CDT 01/11
--- OUTSIDE RECORDS SUMMARY | 2019-10-27 11:47 | XMS REPORT | Clinical Summary ---
Author Author Admin, Elba Lance [employer] Address Unknown Phone Unavailable Allergies, Adverse Reactions, [...] ronary atherosclerosis of unspecified type of vessel, [place] or graft OTH NONSPC ABN FINDNG RAD&OTH [...] INJECTOR 33 units SC daily INSULIN GLARGINE 16841091519 Active Baltazar Childers MD Active TRAMADOL HCL 50 MG ORAL TABLET 1 twice a day as needed for pain TRAMADOL HCL 07492782952 No Longer Active Baltazar Childers MD Active ROBAXIN 500 MG ORAL TABLET Take 1.5 (one and one half) tabs once daily METHOCARBAMOL 95641379362 Active Baltazar Childers MD Active SYNTHROID 112 MCG ORAL TABLET Take one tablet a day LEVOTHYROXINE SODIUM 91289883505 Active Baltazar Childers MD Active TRUE METRIX AIR GLUCOSE METER DEVICE Use as directed BLOOD GLUCOSE MONITORING SUPPL 44111991000 Active Baltazar Childers MD Activ e TRUE METRIX BLOOD GLUCOSE TEST IN VITRO STRIP test blood sug ar BID Dx: E11.65 GLUCOSE BLOOD 38357406298 Active KENDALL Juarez Active NORTRIPTYLINE HCL 50 MG ORAL CAPSULE 1 twice a day for neuropathy 2 NORTRIPTYLINE HCL 11828005205 Active Baltazar Childers MD Acti ve ASPIRIN 81 MG TBEC Take one (1) tablet by mouth daily ASPIRIN 06937598347 Active Baltazar Childers MD Active GABAPENTIN 300 MG ORAL CAPSULE 1 three times a day 201 12/03/26 GABAPENTIN 77408193283 No Longer Active Baltazar Childers MD Activ e LISINOPRIL 20 MG ORAL TABLET 1 tablet by mouth daily at night 2016 LISINOPRIL 33645027340 Active KENDALL Juarez Active ZITHROMAX Z-ISAIAS 250 MG ORAL TABLET Take two tablets to day and then 1 tablet daily for 4 days AZITHROMYCIN 10909581994 No Longer A ctive Baltazar Childers MD Active AMLODIPINE BESYLATE 5 MG ORAL TABLET 1 tab daily for HTN AMLODIPINE BESYLATE 73746226931 Active Baltazar Childers MD Active GLIPIZIDE 10 MG ORAL TABLET take 2 tablets twice daily GLIPIZIDE 32889163006 Active Baltazar Childers MD Active SUCRALFATE 1 GM ORAL TABLET 1 four times a day to coat the stoma ch SUCRALFATE 95797019910 No Longer Active Baltazar Childers MD Active PEN NEEDLES 31G X 6 MM use 1 daily INSULIN PEN NE EDLE 78389210637 Active KENDALL Juarez Active TOUJEO SOLOSTAR 300 UNIT/ML SUBCUTANEOUS SOLUTION PEN- INJECTOR 10 units SC daily INSULIN GLARGINE 99405508744 No Longer Active Rola ARGUETA Active NAPROXEN SODIUM 220 MG ORAL TABLET 1 three times a day as needed NAPROXEN SODIUM 34943477895 No Longer Active Baltazar Childers MD Active ATORVASTATIN CALCIUM 20 MG ORAL TABLET Take 1 tab daily ATORVASTATIN CALCIUM 55653713237 Active Baltazar Childers MD A ctive FUROSEMIDE 40 MG ORAL TABLET Take one by mouth daily FUROSEMIDE 46612147193 Active Baltazar Childers MD Active LISINOPRIL 20 MG ORAL TABLET Take one by mouth daily at bedtime LISINOPRIL 78430593611 No Longer Active Blatazar Childers MD Active ONETOUCH ULTRA BLUE IN VITRO STRIP Test twice a day 07/11/11 GLUCOSE BLOOD 17119249751 No Longer Active Baltazar Childers MD Acti ve TRUEPLUS LANCETS 33G Test twice a day LANCETS 8812038 7064 Active KENDALL Juarez Active TRUEDRAW LANCING DEVICE Test twice a day LANCET DEVICES 96650229785 Active Baltazar Childers MD Active TRUETRACK BLOOD GLUCOSE w/Device KIT Test twice a day BLOOD GLUCOSE MONITORING SUPPL 32056842751 Active Baltazar Childers MD Activ e HYDROCODONE-ACETAMINOPHEN 7.5-325 MG ORAL TABLET Take 1 tab every 6-8 hours PRN HYDROCODONE-ACETAMINOPHEN 89098037793 Active Baltazar Nickerson MD Active GABAPENTIN 300 MG ORAL CAPSULE 1 po qd x 2 days, then 1 po BID x 2 days, then 1 po TID GABAPENTIN 77337143176 No Longer Active Baltazar Childers MD Active NAPROXEN 500 MG ORAL TABLET 1 tablet by mouth twice daily NAPROXEN 88388095301 No Longer Active Baltazar Childers MD Active PROAIR HFA 108 (90 Base) MCG/ACT INHALATION AEROSOL SO LUTION 2 puffs four times a day as needed ALBUTEROL SULFATE 93089502634 Active Shun Arellano LPN Active DEPO-TESTOSTERONE 200 MG/ML INTRAMUSCULAR SOLUTION as directed TESTOSTERONE CYPIONATE 49588708572 No Longer Active Baltazar Childers MD Active LIPITOR 20 MG ORAL TABLET Take one by mouth daily in evening ATORVASTATIN CALCIUM 11079968203 No Longer Active Blatazar Childers MD Active CRESTOR 10 MG ORAL TABLET 1 by mouth every day ROSUVASTATIN CALCIUM 46015016421 No Longer Active Baltazar Childers MD Active PHENTERMINE HCL 37.5 MG ORAL TABLET Take one by mouth daily PHENTERMINE HCL 01466726154 No Longer Active Baltazar Childers MD Ac tive TIZANIDINE HCL 4 MG ORAL TABLET 1 daily as needed for muscle spa sm TIZANIDINE HCL 33039140173 No Longer Active Dawna Salazar RN Active RHUSCEENLG-[id number]-ZBKEMJZA 50-325-40 MG ORAL TABLET 1 fo ur times a day as needed for heacache MOKABYLOJN-URUD-FOBEARUO 47525098674 Active Beth Carr RMA Active SUMATRIPTAN SUCCINATE 100 MG ORAL TABLET 1 tablet by m outh at onset of migraine as needed SUMATRIPTAN SUCCINATE 44193154303 Active Beth KENDALL Laura Active LORATADINE 10 MG ORAL TABLET Take one by mouth daily LORATADINE 52376118735 Active Baltazar Childers MD Active OMEPRAZOLE 20 MG ORAL CAPSULE DELAYED RELEASE Take one by mouth jostin ly OMEPRAZOLE 91408064043 Active Baltazar Childers MD Active HYDROXYZINE HCL 25 MG ORAL TABLET Take one by mouth daily HYDROXYZINE HCL 33899461447 Active Baltazar Childers MD Active ALPRAZOLAM 1 MG ORAL TABLET 1 tablet by mouth daily at bedti ny for restless leg ALPRAZOLAM 68276316893 Active Baltazar Childers MD Active METFORMIN HCL 1000 MG ORAL TABLET Take one by mouth twice daily METFORMIN HCL 00158805332 Active Baltazar Childers MD Active TIZANIDINE HCL 4 MG ORAL TABLET 1 daily as needed for muscle spa sm TIZANIDINE HCL 4 MG ORAL TABLET 205958 TIZANIDINE HCL Inactive PHENTERMINE HCL 37.5 MG ORAL TABLET Take one by mouth daily PHENTERMINE HCL 37.5 MG ORAL TABLET 878648 PHENTERMINE HCL Inac tive CRESTOR 10 MG ORAL TABLET 1 by mouth every day CRESTOR 10 MG ORAL TABLET 356975 ROSUVASTATIN CALCIUM Inactive LIPITOR 20 MG ORAL TABLET Take one by mouth daily in evening LIPITOR 20 MG ORAL TABLET 320502 ATORVASTATIN CALCIUM Inactive DEPO-TESTOSTERONE 200 MG/ML INTRAMUSCULAR SOLUTION as directed DEPO-TESTOSTERONE 200 MG/ML INTRAMUSCULAR SOLUTION 1345883 RUFINO TOSTERONE CYPIONATE Inactive NAPROXEN 500 MG ORAL TABLET 1 tablet by mouth twice daily NAPROXEN 500 MG ORAL TABLET 238967 NAPROXEN Inactive GABAPENTIN 300 MG ORAL CAPSULE 1 po qd x 2 days, then 1 po BID x 2 days, then 1 po TID GABAPENTIN 300 MG ORAL CAPSULE 220576 GABAP ENTIN Inactive ONETOUCH ULTRA BLUE IN VITRO STRIP Test twice a day 07/11/11 wumoUCH ULTRA BLUE IN VITRO STRIP GLUCOSE BLOOD Inact amie NAPROXEN SODIUM 220 MG ORAL TABLET 1 three times a day as needed NAPROXEN SODIUM 220 MG ORAL TABLET 378631 NAPROXEN SODI UM Inactive TOUJEO SOLOSTAR 300 UNIT/ML SUBCUTANEOUS SOLUTION PEN- INJECTOR 10 units SC daily TOUJEO SOLOSTAR 300 UNIT/ML SUBCUTANEOUS SOLUTION PEN-INJECTOR INSULIN GLARGINE Inactive SUCRALFATE 1 GM ORAL TABLET 1 four times a day to coat the stoma ch SUCRALFATE 1 GM ORAL TABLET 310839 SUCRALFATE Inac tive GABAPENTIN 300 MG ORAL CAPSULE 1 three times a day 201 12/03/26 GABAPENTIN 300 MG ORAL CAPSULE 652089 GABAPENTIN Inactive TRAMADOL HCL 50 MG ORAL TABLET 1 twice a day as needed for pain TRAMADOL HCL 50 MG ORAL TABLET 153200 TRAMADOL HCL I nactive ZITHROMAX Z-ISAIAS 250 MG ORAL TABLET Take two tablets to day and then 1 tablet daily for 4 days ZITHROMAX Z-ISAIAS 250 MG ORAL TAB LET 098657 AZITHROMYCIN Inactive Immunizations Vaccine Administration Date Value Standard Floyd cription influenza immunization (Flu Vax) has been administered 05/11 Done according to patient influenza virus vaccine, unspecified for mulation pneumococcal immunization administered Pneumovax 23 [CVX33] pneumococcal polysaccharide vaccine, 23 valent Seasonal influenza vaccine, injectable, containing preservative, for > 3 years old (Afluria, FluLaval, Fluzone, Fluvirin, Fluarix, Agriflu(>= 18 yo)) Fluzone (>3 yrs.) [[id number]] Influenza, seasonal, inject able Seasonal influenza vaccine, injectable, containing preservative, for > 3 years old (Afluria, FluLaval, Fluzone, Fluvirin, Fluarix, Agriflu(>= 18 yo)) Fluzone (>3 yrs.) [[id number]] Influenza, seasonal, inject able Vital Signs Date [...] Report: Basic Metabolic Panel - Chem istry creatinine, serum 1.97 mg/dL 0.60-1.30 urea nitrogen, blood 31 mg/dL 7-18 blood glucose 179 mg/dL 65-95 carbon dioxide, venous blood 29.1 mmol/L 21.0-32 .0 chloride, serum 102 mmol/L 98-107 potassium, serum 4.8 mmol/L 3.5-5.2 sodium, serum 139 mmol/L 534-140 0030/06/26 calcium, serum 9.7 mg/dL 8.5-10.1 Lab Report: HGBA1C - Chemistry hemoglobin A1C, blood, as % of total hemoglobin 7.4 % 4.3-6.0 Lab Report: HGBA1C, CBC, Comp. Metabolic Panel, Cholesterol, Triglycerid ... - Chemistry hemoglobin A1C, blood, as % of total hemoglobin 8.5 % 4.3-6.0 calcium, serum 9.2 mg/dL 8.5-10.1 bilirubin, serum, total 0.40 mg/dL 0.00-1.00 cholesterol, serum 218 mg/dL 426-761 5833/12/18 triglyceride, serum, fasting 357 mg/dL 30-200 HDL cholesterol, serum 49 mg/dL 32-60 LDL cholesterol, serum 103.00 mg/dL 5.00-130.00 sodium, serum 142 mmol/L 432-740 1643/12/18 carbon dioxide, venous blood 32.5 mmol/L 21.0-32 [...] Metabolic Panel, Cholesterol, Triglycerid ... - Hematology hematocrit, blood 38.0 % 37.0-47.0 mean corpuscular volume, RBC 93 fL 80-97 mean corpuscular hemoglobin, RBC 29.4 pg 27. 0-31.2 mean corpuscular hemoglobin concentration, RBC 31.6 G/DL % 31.8-35.4 red blood cell distribution width 13.1 % 11 .6-14.8 platelet count 326 10^3/MM^3 10*3/mm3 020-656 7393/12/18 hemoglobin, blood 12.0 g/dL 12.0-16.0 erythrocyte (RBC) count 4.09 10^6/MM^3 10*6/mm3 3.80-5.8 0 leukocyte count, blood 6.8 10^3/MM^3 10*3/mm3 4.6-10.2 Lab Report: HGBA1C, CBC, Comp. Metabolic Panel, Cholesterol, Triglycerid ... - Lab Alkaline phosphatase 63 50-136 Lab Report: Thyroid Stimulating Hormone (L) - Chemistry TSH 8.56 m[iU]/mL 0.36-3.74 Encounters Code Encounter Date Provider Facility CPT-82565 15987-Ogb Vst-Est Level IV 15:12:52 EXCHANGE UNDERWRITING CONSULTANT Charlie hCilders MD [facility] CPT-26516 39198-Uva Vst-Est Level IV 15:30:55 EXCHANGE UNDERWRITING CONSULTANT Charlie Childers MD [facility] CPT-26015 28394-Tcc Vst-Est Level IV 13:49:06 [facility] Level 4 Est. Patient 17:26:08 [facility] 81129-Ril Vst-Est Level V 14:26:27 CDT Aneudy Childers MD [facility]-94568 Level 4 Est. Patient 17:05:37 CDT Baltazar Childers MD [facility]-44911 Level 4 Est. Patient 16:21:19 EXCHANGE UNDERWRITING CONSULTANT Baltazar Childers MD [facility]-44687 Level 4 Est. Patient 12:25:11 CDT Baltazar Childers MD [facility]-02624 Level 4 Est. Patient 14:22:31 CDT Baltazar Childers MD [facility]-43678 Level 4 Est. Patient 15:44:38 [facility] Patient 11:34:17 CDT Baltazar Childers MD [facility]-78269 Level 3 Est. Patient 16:40:40 CDT Baltazar Childers MD [facility]-45665 Level 4 Est. Patient 10:41:24 CDT Baltazar Childers MD [facility]-86545 Level 4 Est. Patient 16:01:48 CDT Baltazar Childers MD [facility]-22563 Level 4 Est. Patient 16:54:07 EXCHANGE UNDERWRITING CONSULTANT aBltazar Childers MD [facility]-13917 Level 4 Est. Patient 15:42:12 CDT Baltazar Childers MD [facility] CPT-59604 Level 4 Est. Patient 11:29:55 CDT Baltazar Childers MD [facility] CPT-49293 Level 4 Est. Patient 14:15:19 CDT Baltazar Childers MD [facility] CPT-57957 Level 4 Est. Patient 12:20:13 CDT Baltazar Childers MD [facility] CPT-90542 Level 4 Est. Patient 14:52:45 EXCHANGE UNDERWRITING CONSULTANT Baltazar Childers MD [facility] CPT-46330 Level 4 Est. Patient 14:18:34 EXCHANGE UNDERWRITING CONSULTANT Baltazar Childers MD [facility] CPT-59422 Level 4 Est. Patient 15:18:29 CDT Baltazar Childers MD [facility] CPT-10510 Level 3 Est. Patient 12:45:34 CDT Baltazar Childers MD [facility] CPT-91430 Level 3 Est. Patient 10:10:11 CDT Baltazar Childers MD [facility] CPT-14967 Level 3 Est. Patient 14:07:50 CDT Baltazar Childers MD [facility] CPT-71636 Level 4 Est. Patient 12:26:10 EXCHANGE UNDERWRITING CONSULTANT Baltazar Childers MD [facility] CPT-84260 Level 4 Est. Patient 14:45:38 CDT Baltazar Childers MD [facility] CPT-59643 Level 4 New Patient 12:30:48 CDT Baltazar hinton MD [facility] Procedures Code Procedure Name Date Entry Date Standard Desc ription CPT-000 Give Appropriate Flu Vaccine 12:25:14 CDT 2 CPT-07590 First Vx - Ix admin via ID I M or jet injects without counseling by physician 13:08:59 CDT CPT-61061 Fluzone Quadrivalent Intramuscular Suspe nsion 0.5 ML 13:08:59 CDT CPT-80430 Venipuncture Draw Fee 12:04:12 CDT CPT-65803 Lipid - LAB USE ONLY 17:39:15 EXCHANGE UNDERWRITING CONSULTANT 9 CPT-58875 HGBA1C - LAB USE ONLY 17:39:15 EXCHANGE UNDERWRITING CONSULTANT CPT-55272 CMP - LAB USE ONLY 17:39:14 EXCHANGE UNDERWRITING CONSULTANT CPT-36999 Venipuncture Draw Fee 17:39:14 EXCHANGE UNDERWRITING CONSULTANT CPT-29161 First Vx - Ix admin via ID I M or jet injects without counseling by physician 16:55:17 EXCHANGE UNDERWRITING CONSULTANT CPT-18920 Fluzone Quadrivalent Intramuscular Suspe nsion 0.5 ML 16:55:17 EXCHANGE UNDERWRITING CONSULTANT CPT-94895 Renal Panel - LAB USE ONLY 17:39:20 CDT 201 10/31/07 CPT-78129 CBC - LAB USE ONLY 17:39:20 CDT CPT-97661 Venipuncture Draw Fee 17:39:20 CDT CPT-90881 Venipuncture Draw Fee 14:33:30 CDT CPT-23305 Renal Panel - LAB USE ONLY 14:33:30 CDT 201 10/31/07 CPT-37435 CBC - LAB USE ONLY 14:33:29 CDT CPT-05666 Venipuncture Draw Fee 14:50:21 EXCHANGE UNDERWRITING CONSULTANT CPT-29176 Immunization Single Admin 17:35:35 CDT 2014 CPT-64880 Fluzone Quadrivalent preservative free ( >=3yrs.) 17:35:35 CDT CPT-46976 Venipuncture Draw Fee 12:10:27 EXCHANGE UNDERWRITING CONSULTANT CPT-34329 Fluzone Quadrivalent Intramuscular Suspe nsion 0.5 ML 10:49:13 CDT CPT-02452 First Vx Component - Ix admi n via ID IM or jet inj without physician counseling 15:17:19 EXCHANGE UNDERWRITING CONSULTANT CPT-52475 Pneumovax 15:17:19 EXCHANGE UNDERWRITING CONSULTANT CPT-49530 Pneumovax 14:52:45 EXCHANGE UNDERWRITING CONSULTANT CPT-65786 Venipuncture Draw Fee 14:06:30 EXCHANGE UNDERWRITING CONSULTANT CPT-000 Give Appropriate Flu Vaccine 14:18:34 EXCHANGE UNDERWRITING CONSULTANT 2 CPT-25187 Administration single or combination vac cine inc oral 14:46:00 EXCHANGE UNDERWRITING CONSULTANT CPT-10814 Influenza split virus > age 3 14:46:00 EXCHANGE UNDERWRITING CONSULTANT CPT-OV Office Visit 19:13:16 CDT CPT-83103 Zostavax 18:41:56 CDT CPT-75040 Administration single or combination vac cine inc oral 12:56:39 CDT CPT-04717 Zoster Vaccine (Zostavax) 12:56:39 CDT 2012 CPT-10875 Venipuncture Draw Fee 10:58:57 CDT CPT-29795 Sono pelvis non OB uterus ovaries cervix 17:45:04 CDT CPT-50873 Sono retroperitoneal complete kidneys an d bladder 17:14:36 CDT CPT-OV Office Visit 14:59:38 EXCHANGE UNDERWRITING CONSULTANT CPT-J1070 Depo Testosterone 100 mg 14:50:13 CDT 03/05 CPT-43485 Abx/Therapy Injection 14:50:13 CDT CPT-26953 Administration single or combination vac cine inc oral 14:34:43 CDT CPT-78990 Influenza split virus > age 3 14:34:43 CDT CPT-J1070 Depo Testosterone 100 mg 17:37:13 CDT 01/11 CPT-19924 Abx/Therapy Injection 17:37:13 CDT CPT-27860 Venipuncture Draw Fee 16:30:13 CDT CPT-79858 Venipuncture Draw Fee 16:29:43 CDT CPT-J1070 Depo Testosterone 100 mg 14:45:38 CDT 01/11
--- OUTSIDE RECORDS SUMMARY | 2019-10-27 11:48 | XMS REPORT | Clinical Summary ---
Author Author Admin, Elba Lance [employer] Address Unknown Phone Unavailable Allergies, Adverse Reactions, [...] ronary atherosclerosis of unspecified type of vessel, cheesh-na or graft OTH NONSPC ABN FINDNG RAD&OTH [...] 37.0-37.9, adult BMI 36-36.9 V85.37 Active Baltazar Chidlers MD Body Mass Index 37.0-37.9, adult Screening mammogram V76.12 Active Baltazar bynum MD Other screening mammogram COLON POLYPS ICD-211.3 Inactive Lolis King JOSE Bynum Pharyngitis ICD-462 Inactive Baltazar Childers MD Medication List Medication Instructions Start Date Stop Date Generic Name NDC Status Provider Patient Instruction LANTUS SOLOSTAR 100 UNIT/ML SUBCUTANEOUS SOLUTION PEN- INJECTOR 33 units SC daily INSULIN GLARGINE 14119384730 Active Baltazar Childers MD Active TRAMADOL HCL 50 MG ORAL TABLET 1 twice a day as needed for pain TRAMADOL HCL 47280942198 No Longer Active Baltazar Childers MD Active ROBAXIN 500 MG ORAL TABLET Take 1.5 (one and one half) tabs once daily METHOCARBAMOL 70091933903 Active Baltazar Childers MD Active SYNTHROID 112 MCG ORAL TABLET Take one tablet a day LEVOTHYROXINE SODIUM 79941889975 Active Baltazar Childers MD Active TRUE METRIX AIR GLUCOSE METER DEVICE Use as directed BLOOD GLUCOSE MONITORING SUPPL 41255969910 Active Baltazar Childers MD Activ e TRUE METRIX BLOOD GLUCOSE TEST IN VITRO STRIP test blood sug ar BID Dx: E11.65 GLUCOSE BLOOD 34732823908 Active KENDALL Juarez Active NORTRIPTYLINE HCL 50 MG ORAL CAPSULE 1 twice a day for neuropathy 2 NORTRIPTYLINE HCL 62640829703 Active Baltazar Childers MD Acti ve ASPIRIN 81 MG TBEC Take one (1) tablet by mouth daily ASPIRIN 76113903927 Active Baltazar Childers MD Active GABAPENTIN 300 MG ORAL CAPSULE 1 three times a day 201 12/03/26 GABAPENTIN 55500955006 No Longer Active Baltazar Childers MD Activ e LISINOPRIL 20 MG ORAL TABLET 1 tablet by mouth daily at night 2016 LISINOPRIL 75553651831 Active Baltazar Childers MD Active ZITHROMAX Z-ISAIAS 250 MG ORAL TABLET Take two tablets to day and then 1 tablet daily for 4 days AZITHROMYCIN 92635695963 No Longer A ctive Baltazar Childers MD Active AMLODIPINE BESYLATE 5 MG ORAL TABLET 1 tab daily for HTN AMLODIPINE BESYLATE 79184748249 Active Baltazar Childers MD Active GLIPIZIDE 10 MG ORAL TABLET take 2 tablets twice daily GLIPIZIDE 63019664135 Active Baltazar Childers MD Active SUCRALFATE 1 GM ORAL TABLET 1 four times a day to coat the stoma ch SUCRALFATE 48122479948 No Longer Active Baltazar Childers MD Active PEN NEEDLES 31G X 6 MM use 1 daily INSULIN PEN NE EDLE 23415910272 Active KENDALL Juarez Active CELINA PARIKH 300 UNIT/ML SUBCUTANEOUS SOLUTION PEN- INJECTOR 10 units SC daily INSULIN GLARGINE 47234662514 No Longer Active Rola ARGUETA Active NAPROXEN SODIUM 220 MG ORAL TABLET 1 three times a day as needed NAPROXEN SODIUM 37747183008 No Longer Active Baltazar Childers MD Active ATORVASTATIN CALCIUM 20 MG ORAL TABLET Take 1 tab daily ATORVASTATIN CALCIUM 74506344018 Active Baltazar Childers MD A ctive FUROSEMIDE 40 MG ORAL TABLET Take one by mouth daily FUROSEMIDE 37506354082 Active Baltazar Childers MD Active LISINOPRIL 20 MG ORAL TABLET Take one by mouth daily at bedtime LISINOPRIL 56715794506 No Longer Active Baltazar Childers MD Active ONETOUCH ULTRA BLUE IN VITRO STRIP Test twice a day 07/11/11 GLUCOSE BLOOD 14624499632 No Longer Active Baltazar Childers MD Acti ve TRUEPLUS LANCETS 33G Test twice a day LANCETS 7839495 2017 Active KENDALL Juarez Active TRUEDRAW LANCING DEVICE Test twice a day LANCET DEVICES 43890248952 Active Baltazar Childers MD Active TRUETRACK BLOOD GLUCOSE w/Device KIT Test twice a day BLOOD GLUCOSE MONITORING SUPPL 82753203190 Active Baltazar Childers MD Activ e HYDROCODONE-ACETAMINOPHEN 7.5-325 MG ORAL TABLET Take 1 tab every 6-8 hours PRN HYDROCODONE-ACETAMINOPHEN 78578290380 Active Baltazar Nickerson MD Active GABAPENTIN 300 MG ORAL CAPSULE 1 po qd x 2 days, then 1 po BID x 2 days, then 1 po TID GABAPENTIN 11961777141 No Longer Active Baltazar Childers MD Active NAPROXEN 500 MG ORAL TABLET 1 tablet by mouth twice daily NAPROXEN 27169962053 No Longer Active Baltazar Childers MD Active PROAIR HFA 108 (90 Base) MCG/ACT INHALATION AEROSOL SO LUTION 2 puffs four times a day as needed ALBUTEROL SULFATE 89958063901 Active Shun Arellano LPN Active DEPO-TESTOSTERONE 200 MG/ML INTRAMUSCULAR SOLUTION as directed TESTOSTERONE CYPIONATE 57268270829 No Longer Active Baltazar Childers MD Active LIPITOR 20 MG ORAL TABLET Take one by mouth daily in evening ATORVASTATIN CALCIUM 81079461579 No Longer Active Baltazar Childers MD Active CRESTOR 10 MG ORAL TABLET 1 by mouth every day ROSUVASTATIN CALCIUM 57744232396 No Longer Active Baltazar Childers MD Active PHENTERMINE HCL 37.5 MG ORAL TABLET Take one by mouth daily PHENTERMINE HCL 03042146968 No Longer Active Baltazar Childers MD Ac tive TIZANIDINE HCL 4 MG ORAL TABLET 1 daily as needed for muscle spa sm TIZANIDINE HCL 39450182643 No Longer Active Dawna Salazar RN Active [id number]-LOOKFIRT 50-325-40 MG ORAL TABLET 1 fo ur times a day as needed for heacache [id number]-TLCQBEFT 91541217969 Active Beth Bruno, RMA Active SUMATRIPTAN SUCCINATE 100 MG ORAL TABLET 1 tablet by m outh at onset of migraine as needed SUMATRIPTAN SUCCINATE 58011596896 Active Beth KENDALL Laura Active LORATADINE 10 MG ORAL TABLET Take one by mouth daily LORATADINE 99730423483 Active Baltazar Childers MD Active OMEPRAZOLE 20 MG ORAL CAPSULE DELAYED RELEASE Take one by mouth jostin ly OMEPRAZOLE 30105511578 Active Baltazar Childers MD Active HYDROXYZINE HCL 25 MG ORAL TABLET Take one by mouth daily HYDROXYZINE HCL 19016105375 Active Baltazar Childers MD Active ALPRAZOLAM 1 MG ORAL TABLET 1 tablet by mouth [facility] ALPRAZOLAM 00572566298 Active Baltazar Childers MD Active METFORMIN HCL 1000 MG ORAL TABLET Take one by mouth twice daily METFORMIN HCL 53365553791 Active Baltazar Childers MD Active TIZANIDINE HCL 4 MG ORAL TABLET 1 daily as needed for muscle spa sm TIZANIDINE HCL 4 MG ORAL TABLET 435409 TIZANIDINE HCL Inactive PHENTERMINE HCL 37.5 MG ORAL TABLET Take one by mouth daily PHENTERMINE HCL 37.5 MG ORAL TABLET 174372 PHENTERMINE HCL Inac tive CRESTOR 10 MG ORAL TABLET 1 by mouth every day CRESTOR 10 MG ORAL TABLET 600641 ROSUVASTATIN CALCIUM Inactive LIPITOR 20 MG ORAL TABLET Take one by mouth daily in evening LIPITOR 20 MG ORAL TABLET 905260 ATORVASTATIN CALCIUM Inactive DEPO-TESTOSTERONE 200 MG/ML INTRAMUSCULAR SOLUTION as directed DEPO-TESTOSTERONE 200 MG/ML INTRAMUSCULAR SOLUTION 2601948 RUFINO TOSTERONE CYPIONATE Inactive NAPROXEN 500 MG ORAL TABLET 1 tablet by mouth twice daily NAPROXEN 500 MG ORAL TABLET 623103 NAPROXEN Inactive GABAPENTIN 300 MG ORAL CAPSULE 1 po qd x 2 days, then 1 po BID x 2 days, then 1 po TID GABAPENTIN 300 MG ORAL CAPSULE 286834 GABAP ENTIN Inactive ONETOUCH ULTRA BLUE IN VITRO STRIP Test twice a day 07/11/11 ONETOUCH ULTRA BLUE IN VITRO STRIP GLUCOSE BLOOD Inact amie NAPROXEN SODIUM 220 MG ORAL TABLET 1 three times a day as needed NAPROXEN SODIUM 220 MG ORAL TABLET 615610 NAPROXEN SODI UM Inactive TOUJEO SOLOSTAR 300 UNIT/ML SUBCUTANEOUS SOLUTION PEN- INJECTOR 10 units SC daily TOUJEO SOLOSTAR 300 UNIT/ML SUBCUTANEOUS SOLUTION PEN-INJECTOR INSULIN GLARGINE Inactive SUCRALFATE 1 GM ORAL TABLET 1 four times a day to coat the stoma ch SUCRALFATE 1 GM ORAL TABLET 525632 SUCRALFATE Inac tive GABAPENTIN 300 MG ORAL CAPSULE 1 three times a day 201 12/03/26 GABAPENTIN 300 MG ORAL CAPSULE 472242 GABAPENTIN Inactive TRAMADOL HCL 50 MG ORAL TABLET 1 twice a day as needed for pain TRAMADOL HCL 50 MG ORAL TABLET 504790 TRAMADOL HCL I nactive ZITHROMAX Z-ISAIAS 250 MG ORAL TABLET Take two tablets to day and then 1 tablet daily for 4 days ZITHROMAX Z-ISAIAS 250 MG ORAL TAB LET 662970 AZITHROMYCIN Inactive Immunizations Vaccine Administration Date Value Standard Floyd cription influenza immunization (Flu Vax) has been administered 05/11 Done according to patient influenza virus vaccine, unspecified for mulation pneumococcal immunization administered Pneumovax 23 [CVX33] pneumococcal polysaccharide vaccine, 23 valent Seasonal influenza vaccine, injectable, containing preservative, for > 3 years old (Afluria, FluLaval, Fluzone, Fluvirin, Fluarix, Agriflu(>= 18 yo)) Fluzone (>3 yrs.) [[id number]] Influenza, seasonal, inject able Seasonal influenza vaccine, injectable, containing preservative, for > 3 years old (Afluria, FluLaval, Fluzone, Fluvirin, Fluarix, Agriflu(>= 18 yo)) Fluzone (>3 yrs.) [[id number]] Influenza, seasonal, inject able Vital Signs Date [...] weight E&M 233 [lb_av] Weight Measure d blood pressure, diastolic 69 mm[Hg] BP [place] blood pressure, systolic 140 mm[Hg] BP sys height E&M 66.5 [in_us] Bdy height pulse rate E&M 65 /min Heart rate temperature E&M 96.9 [degF] Body temp erature weight E&M 236 [lb_av] Weight Measure d Diagnostic Results Date Name Value Unit Range Description Lab Report: Basic Metabolic Panel - Chem istry sodium, serum 139 mmol/L 174-863 2985/06/26 potassium, serum 4.8 mmol/L 3.5-5.2 chloride, serum 102 mmol/L 98-107 carbon dioxide, venous blood 29.1 mmol/L 21.0-32 .0 blood glucose 179 mg/dL 65-95 calcium, serum 9.7 mg/dL 8.5-10.1 urea nitrogen, blood 31 mg/dL 7-18 creatinine, serum 1.97 mg/dL 0.60-1.30 Lab Report: HGBA1C - Chemistry hemoglobin A1C, blood, as % of total hemoglobin 7.4 % 4.3-6.0 hemoglobin A1C, blood, as % of total hemoglobin 7.6 % 4.3-6.0 Lab Report: HGBA1C, CBC, Comp. Metabolic Panel, Cholesterol, Triglycerid ... - Chemistry calcium, serum 9.2 mg/dL 8.5-10.1 bilirubin, serum, total 0.40 mg/dL 0.00-1.00 cholesterol, serum 218 mg/dL 520-388 6416/12/18 triglyceride, serum, fasting 357 mg/dL 30-200 HDL cholesterol, serum 49 mg/dL 32-60 LDL cholesterol, serum 103.00 mg/dL 5.00-130.00 sodium, serum 142 mmol/L 410-167 0704/12/18 carbon dioxide, venous blood 32.5 mmol/L 21.0-32 .0 potassium, serum 4.4 mmol/L 3.5-5.2 chloride, serum 101 mmol/L 98-107 blood glucose 150 mg/dL 65-95 urea nitrogen, blood 18 mg/dL 7-18 creatinine, serum 1.74 mg/dL 0.60-1.30 Estimated Glomerular Filtration Rate (calc) 32 (?) mL/min/1.73m2 = OR > 60 mL/min alanine aminotransferase (SGPT), serum 37 U/L 12-78 aspartate aminotransferase (SGOT), serum 17 U/L 15-37 hemoglobin A1C, blood, as % of total hemoglobin 8.5 % 4.3-6.0 Lab Report: HGBA1C, CBC, Comp. [...] Chemistry TSH 8.56 m[iU]/mL 0.36-3.74 Office Visit: Meds Check - Toxicology drug screen, urine, qualitative negative Encounters Code Encounter Date Provider Facility CPT-15132 [id number] Vst-Est Level IV 15:12:52 MOVEMAN Charlie Childers MD [facility] CPT-56766 [id number] Vst-Est Level IV 15:30:55 MOVEMAN Charlie Childers MD [facility]-41642 39450-Toe Vst-Est Level IV 13:49:06 C DT Ann Martinez [facility] CPT-56387 Level 4 Est. Patient 17:26:08 CDT Ann trujillo [facility] CPT-01287 [id number] Vst-Est Level V 14:26:27 CDT Aneudy Childers MD [facility] CPT-00007 Level 4 Est. Patient 17:05:37 CDT Baltazar Childers MD [facility] CPT-89111 Level 4 Est. Patient 16:21:19 MOVEMAN Baltazar Childers MD [facility] CPT-77633 Level 4 Est. Patient 12:25:11 CDT Baltazar Childers MD [facility] CPT-89412 Level 4 Est. Patient 14:22:31 CDT Baltazar Childers MD [facility] CPT-12839 Level 4 Est. Patient 15:44:38 CDT Shonna Parker APRN [facility] CPT-85586 Level 4 Est. Patient 11:34:17 CDT Baltazar Childers MD [facility] CPT-16681 Level 3 Est. Patient 16:40:40 CDT Baltazar Childers MD [facility] CPT-99287 Level 4 Est. Patient 10:41:24 CDT Baltazar Childers MD [facility] CPT-41113 Level 4 Est. Patient 16:01:48 CDT Baltazar Childers MD [facility] CPT-09783 Level 4 Est. Patient 16:54:07 MOVEMAN Baltazar Childers MD [facility] CPT-98792 Level 4 Est. Patient 15:42:12 CDT Baltazar Childers MD [facility] CPT-28840 Level 4 Est. Patient 11:29:55 CDT Baltazar Childers MD [facility] CPT-59193 Level 4 Est. Patient 14:15:19 CDT Baltazar Childers MD [facility] CPT-07373 Level 4 Est. Patient 12:20:13 CDT Baltazar Childers MD [facility] CPT-35221 Level 4 Est. Patient 14:52:45 MOVEMAN Baltazar Childers MD [facility] CPT-22928 Level 4 Est. Patient 14:18:34 MOVEMAN Baltazar Childers MD [facility] CPT-79016 Level 4 Est. Patient 15:18:29 CDT Baltazar Childers MD [facility] CPT-15939 Level 3 Est. Patient 12:45:34 CDT Baltazar Childers MD [facility] CPT-28917 Level 3 Est. Patient 10:10:11 CDT Baltazar Childers MD [facility] CPT-40024 Level 3 Est. Patient 14:07:50 CDT Baltazar Childers MD [facility] CPT-13491 Level 4 Est. Patient 12:26:10 MOVEMAN Baltazar Childers MD [facility] CPT-83439 Level 4 Est. Patient 14:45:38 CDT Baltazar Childers MD [facility] CPT-32465 Level 4 New Patient 12:30:48 CDT Baltazar hinton MD [facility] Procedures Code Procedure Name Date Entry Date Standard Desc ription CPT-000 Give Appropriate Flu Vaccine 12:25:14 CDT 2 CPT-02253 First Vx - Ix admin via ID I M or jet injects without counseling by physician 13:08:59 CDT CPT-22822 Fluzone Quadrivalent Intramuscular Suspe nsion 0.5 ML 13:08:59 CDT CPT-88289 Venipuncture Draw Fee 12:04:12 CDT CPT-44410 Lipid - LAB USE ONLY 17:39:15 MOVEMAN 9 CPT-95597 HGBA1C - LAB USE ONLY 17:39:15 MOVEMAN CPT-28408 CMP - LAB USE ONLY 17:39:14 MOVEMAN CPT-55989 Venipuncture Draw Fee 17:39:14 MOVEMAN CPT-53245 First Vx - Ix admin via ID I M or jet injects without counseling by physician 16:55:17 MOVEMAN CPT-00278 Fluzone Quadrivalent Intramuscular Suspe nsion 0.5 ML 16:55:17 MOVEMAN CPT-44765 Renal Panel - LAB USE ONLY 17:39:20 CDT 201 10/31/07 CPT-59399 CBC - LAB USE ONLY 17:39:20 CDT CPT-91424 Venipuncture Draw Fee 17:39:20 CDT CPT-77315 Venipuncture Draw Fee 14:33:30 CDT CPT-55969 Renal Panel - LAB USE ONLY 14:33:30 CDT 201 10/31/07 CPT-67462 CBC - LAB USE ONLY 14:33:29 CDT CPT-56641 Venipuncture Draw Fee 14:50:21 MOVEMAN CPT-12993 Immunization Single Admin 17:35:35 CDT 2014 CPT-12596 Fluzone Quadrivalent preservative free ( >=3yrs.) 17:35:35 CDT CPT-69949 Venipuncture Draw Fee 12:10:27 MOVEMAN CPT-99492 Fluzone Quadrivalent Intramuscular Suspe nsion 0.5 ML 10:49:13 CDT CPT-47507 First Vx Component - Ix admi n via ID IM or jet inj without physician counseling 15:17:19 MOVEMAN CPT-49917 Pneumovax 23 15:17:19 MOVEMAN CPT-04196 Pneumovax 14:52:45 MOVEMAN CPT-12101 Venipuncture Draw Fee 14:06:30 MOVEMAN CPT-000 Give Appropriate Flu Vaccine 14:18:34 MOVEMAN 2 CPT-47118 Administration single or combination vac cine inc oral 14:46:00 MOVEMAN CPT-22854 Influenza split virus > age 3 14:46:00 MOVEMAN CPT-OV Office Visit 19:13:16 CDT CPT-07563 Zostavax 18:41:56 CDT CPT-80447 Administration single or combination vac cine inc oral 12:56:39 CDT CPT-67414 Zoster Vaccine (Zostavax) 12:56:39 CDT 2012 CPT-03331 Venipuncture Draw Fee 10:58:57 CDT CPT-43624 Sono pelvis non OB uterus ovaries cervix 17:45:04 CDT CPT-62858 Sono retroperitoneal complete kidneys an d bladder 17:14:36 CDT CPT-OV Office Visit 14:59:38 MOVEMAN CPT-J1070 Depo Testosterone 100 mg 14:50:13 CDT 03/05 CPT-04768 Abx/Therapy Injection 14:50:13 CDT CPT-57920 Administration single or combination vac cine inc oral 14:34:43 CDT CPT-31090 Influenza split virus > age 3 14:34:43 CDT CPT-J1070 Depo Testosterone 100 mg 17:37:13 CDT 01/11 CPT-37281 Abx/Therapy Injection 17:37:13 CDT CPT-46312 Venipuncture Draw Fee 16:30:13 CDT CPT-85114 Venipuncture Draw Fee 16:29:43 CDT CPT-J1070 Depo Testosterone 100 mg 14:45:38 CDT 01/11
--- OUTSIDE RECORDS SUMMARY | 2019-10-27 11:48 | XMS REPORT | Clinical Summary ---
Author Author Admin, Elba [employer] Address Unknown Phone Unavailable Allergies, Adverse Reactions, [...] neoplasm of colon PERIPHERAL NEUROPATHY 356.9 Active aBltazar Nickerson MD Unspecified hereditary and idiopathic peripheral [...] ronary atherosclerosis of unspecified type of vessel, [place] or graft OTH NONSPC ABN FINDNG [...] INJECTOR 33 units SC daily INSULIN GLARGINE 83321233684 Active Baltazar Childers MD Active TRAMADOL HCL 50 MG ORAL TABLET 1 twice a day as needed for pain TRAMADOL HCL 65779110473 No Longer Active Baltazar Childers MD Active ROBAXIN 500 MG ORAL TABLET Take 1.5 (one and one half) tabs once daily METHOCARBAMOL 72343562538 Active Baltazar Childers MD Active SYNTHROID 112 MCG ORAL TABLET Take one tablet a day LEVOTHYROXINE SODIUM 60854010838 Active Baltazar Childers MD Active TRUE METRIX AIR GLUCOSE METER DEVICE Use as directed BLOOD GLUCOSE MONITORING SUPPL 41918186770 Active Baltazar Childers MD Activ e TRUE METRIX BLOOD GLUCOSE TEST IN VITRO STRIP test blood sug ar BID Dx: E11.65 GLUCOSE BLOOD 08392890407 Active KENDALL Juarez Active NORTRIPTYLINE HCL 50 MG ORAL CAPSULE 1 twice a day for neuropathy 2 NORTRIPTYLINE HCL 37992801320 Active Baltazar Childers MD Acti ve ASPIRIN 81 MG TBEC Take one (1) tablet by mouth daily ASPIRIN 57961191217 Active Baltazar Childers MD Active GABAPENTIN 300 MG ORAL CAPSULE 1 three times a day 201 12/03/26 GABAPENTIN 99766537033 No Longer Active Baltazar Childers MD Activ e LISINOPRIL 20 MG ORAL TABLET 1 tablet by mouth daily at night 2016 LISINOPRIL 71687446144 Active Baltazar Childers MD Active ZITHROMAX Z-ISAIAS 250 MG ORAL TABLET Take two tablets to day and then 1 tablet daily for 4 days AZITHROMYCIN 98265940514 No Longer A ctive Baltazar Childers MD Active AMLODIPINE BESYLATE 5 MG ORAL TABLET 1 tab daily for HTN AMLODIPINE BESYLATE 23245305805 Active Baltazar Childers MD Active GLIPIZIDE 10 MG ORAL TABLET take 2 tablets twice daily GLIPIZIDE 78723094736 Active Baltazar Childers MD Active SUCRALFATE 1 GM ORAL TABLET 1 four times a day to coat the stoma ch SUCRALFATE 10018938697 No Longer Active Baltazar Childers MD Active PEN NEEDLES 31G X 6 MM use 1 daily INSULIN PEN NE EDLE 47514747094 Active KENDALL Juarez Active CELINA PARIKH 300 UNIT/ML SUBCUTANEOUS SOLUTION PEN- INJECTOR 10 units SC daily INSULIN GLARGINE 68161178449 No Longer Active Rola ARGUETA Active NAPROXEN SODIUM 220 MG ORAL TABLET 1 three times a day as needed NAPROXEN SODIUM 06499165028 No Longer Active Baltazar Childers MD Active ATORVASTATIN CALCIUM 20 MG ORAL TABLET Take 1 tab daily ATORVASTATIN CALCIUM 18606090545 Active Baltazar Childers MD A ctive FUROSEMIDE 40 MG ORAL TABLET Take one by mouth daily FUROSEMIDE 08307402491 Active Baltazar Childers MD Active LISINOPRIL 20 MG ORAL TABLET Take one by mouth daily at bedtime LISINOPRIL 98074170392 No Longer Active Baltazar Childers MD Active ONETOUCH ULTRA BLUE IN VITRO STRIP Test twice a day 07/11/11 GLUCOSE BLOOD 34099025309 No Longer Active Baltazar Childers MD Acti ve TRUEPLUS LANCETS 33G Test twice a day LANCETS 6765773 2937 Active KENDALL Juarez Active TRUEDRAW LANCING DEVICE Test twice a day LANCET DEVICES 13896819187 Active Baltazar Childers MD Active TRUETRACK BLOOD GLUCOSE w/Device KIT Test twice a day BLOOD GLUCOSE MONITORING SUPPL 98937588410 Active Baltazar Chidlers MD Activ e HYDROCODONE-ACETAMINOPHEN 7.5-325 MG ORAL TABLET Take 1 tab every 6-8 hours PRN HYDROCODONE-ACETAMINOPHEN 96864613180 Active Baltazar Nickerson MD Active GABAPENTIN 300 MG ORAL CAPSULE 1 po qd x 2 days, then 1 po BID x 2 days, then 1 po TID GABAPENTIN 71501084359 No Longer Active Baltazar Childers MD Active NAPROXEN 500 MG ORAL TABLET 1 tablet by mouth twice daily NAPROXEN 40868885695 No Longer Active Baltazar Childers MD Active PROAIR HFA 108 (90 Base) MCG/ACT INHALATION AEROSOL SO LUTION 2 puffs four times a day as needed ALBUTEROL SULFATE 97288006527 Active Shun Arellano LPN Active DEPO-TESTOSTERONE 200 MG/ML INTRAMUSCULAR SOLUTION as directed TESTOSTERONE CYPIONATE 20693283308 No Longer Active Baltazar Childers MD Active LIPITOR 20 MG ORAL TABLET Take one by mouth daily in evening ATORVASTATIN CALCIUM 31575720267 No Longer Active Baltazar Childers MD Active CRESTOR 10 MG ORAL TABLET 1 by mouth every day ROSUVASTATIN CALCIUM 86435808579 No Longer Active Baltazar Childers MD Active PHENTERMINE HCL 37.5 MG ORAL TABLET Take one by mouth daily PHENTERMINE HCL 96881244503 No Longer Active Baltazar Childers MD Ac tive TIZANIDINE HCL 4 MG ORAL TABLET 1 daily as needed for muscle spa sm TIZANIDINE HCL 77831018195 No Longer Active Dawna Salazar RN Active [id number] 50-325-40 MG ORAL TABLET 1 fo ur times a day as needed for heacache [id number] 34858397404 Active Ebth Carr, RMA Active SUMATRIPTAN SUCCINATE 100 MG ORAL TABLET 1 tablet by m outh at onset of migraine as needed SUMATRIPTAN SUCCINATE 39536418620 Active Beth KENDALL Laura Active LORATADINE 10 MG ORAL TABLET Take one by mouth daily LORATADINE 43278573891 Active Baltazar Childers MD Active OMEPRAZOLE 20 MG ORAL CAPSULE DELAYED RELEASE Take one by mouth jostin ly OMEPRAZOLE 89356373252 Active Baltazar Childers MD Active HYDROXYZINE HCL 25 MG ORAL TABLET Take one by mouth daily HYDROXYZINE HCL 57069346001 Active Baltazar Childers MD Active ALPRAZOLAM 1 MG ORAL TABLET 1 tablet by mouth daily at bedti nd for restless leg ALPRAZOLAM 10062445024 Active Baltazar Childers MD Active METFORMIN HCL 1000 MG ORAL TABLET Take one by mouth twice daily METFORMIN HCL 18233228149 Active Baltazar Childers MD Active TIZANIDINE HCL 4 MG ORAL TABLET 1 daily as needed for muscle spa sm TIZANIDINE HCL 4 MG ORAL TABLET 423635 TIZANIDINE HCL Inactive PHENTERMINE HCL 37.5 MG ORAL TABLET Take one by mouth daily PHENTERMINE HCL 37.5 MG ORAL TABLET 703744 PHENTERMINE HCL Inac tive CRESTOR 10 MG ORAL TABLET 1 by mouth every day CRESTOR 10 MG ORAL TABLET 867554 ROSUVASTATIN CALCIUM Inactive LIPITOR 20 MG ORAL TABLET Take one by mouth daily in evening LIPITOR 20 MG ORAL TABLET 839729 ATORVASTATIN CALCIUM Inactive DEPO-TESTOSTERONE 200 MG/ML INTRAMUSCULAR SOLUTION as directed DEPO-TESTOSTERONE 200 MG/ML INTRAMUSCULAR SOLUTION 1443213 RUFINO TOSTERONE CYPIONATE Inactive NAPROXEN 500 MG ORAL TABLET 1 tablet by mouth twice daily NAPROXEN 500 MG ORAL TABLET 967604 NAPROXEN Inactive GABAPENTIN 300 MG ORAL CAPSULE 1 po qd x 2 days, then 1 po BID x 2 days, then 1 po TID GABAPENTIN 300 MG ORAL CAPSULE 121393 GABAP ENTIN Inactive ONETOUCH ULTRA BLUE IN VITRO STRIP Test twice a day 07/11/11 InfiKno ULTRA BLUE IN VITRO STRIP GLUCOSE BLOOD Inact amie NAPROXEN SODIUM 220 MG ORAL TABLET 1 three times a day as needed NAPROXEN SODIUM 220 MG ORAL TABLET 378420 NAPROXEN SODI UM Inactive TOUJEO SOLOSTAR 300 UNIT/ML SUBCUTANEOUS SOLUTION PEN- INJECTOR 10 units SC daily TOUJEO SOLOSTAR 300 UNIT/ML SUBCUTANEOUS SOLUTION PEN-INJECTOR INSULIN GLARGINE Inactive SUCRALFATE 1 GM ORAL TABLET 1 four times a day to coat the stoma ch SUCRALFATE 1 GM ORAL TABLET 875225 SUCRALFATE Inac tive GABAPENTIN 300 MG ORAL CAPSULE 1 three times a day 201 12/03/26 GABAPENTIN 300 MG ORAL CAPSULE 208921 GABAPENTIN Inactive TRAMADOL HCL 50 MG ORAL TABLET 1 twice a day as needed for pain TRAMADOL HCL 50 MG ORAL TABLET 568980 TRAMADOL HCL I nactive ZITHROMAX Z-ISAIAS 250 MG ORAL TABLET Take two tablets to day and then 1 tablet daily for 4 days ZITHROMAX Z-ISAIAS 250 MG ORAL TAB LET 483280 AZITHROMYCIN Inactive Immunizations Vaccine Administration Date Value Standard Floyd cription influenza immunization (Flu Vax) has been administered 05/11 Done according to patient influenza virus vaccine, unspecified for mulation pneumococcal immunization administered Pneumovax 23 [CVX33] pneumococcal polysaccharide vaccine, 23 valent Seasonal influenza vaccine, injectable, containing preservative, for > 3 years old (Afluria, FluLaval, Fluzone, Fluvirin, Fluarix, Agriflu(>= 18 yo)) Fluzone (>3 yrs.) [[id number]] Influenza, seasonal, inject able Seasonal influenza vaccine, injectable, containing preservative, for > 3 years old (Afluria, FluLaval, Fluzone, Fluvirin, Fluarix, Agriflu(>= 18 yo)) Fluzone (>3 yrs.) [[id number]] Influenza, seasonal, inject able Vital Signs Date [...] - Chem istry sodium, serum 139 mmol/L 848-132 8047/06/26 potassium, serum 4.8 mmol/L 3.5-5.2 chloride, serum [...] 8.5 % 4.3-6.0 sodium, serum 142 mmol/L 728-688 4142/12/18 carbon dioxide, venous blood 32.5 mmol/L 21.0-32 [...] 0.40 mg/dL 0.00-1.00 cholesterol, serum 218 mg/dL 686-169 8461/12/18 triglyceride, serum, fasting 357 mg/dL 30-200 HDL [...] 0.36-3.74 Encounters Code Encounter Date Provider Facility CPT-27283 [id number] Vst-Est Level IV 15:12:52 [facility] [employer] Charlie Childers MD [facility] CPT-81094 11360-Ctp Vst-Est Level IV 15:30:55 [facility] [address] [employer] Charlie Childers MD [facility] CPT-49526 76924-Cqy Vst-Est Level IV 13:49:06 [facility] Est[facility] 17:26[facility]08 [facility] 67798-Yes Vst-Est Level V 14:26:27 CDT Aneudy Childers MD [facility]-62270 Level 4 Est. Patient 17:05:37 CDT Baltazar Childers MD [facility]-86678 Level 4 Est. Patient 16:21:19 [address] [employer] Baltazar Childers MD [facility]-46116 Level 4 Est. Patient 12:25:11 CDT Baltazar Childers MD [facility]-39455 Level 4 Est. Patient 14:22:31 CDT Baltazar Childers MD [facility]-79218 Level 4 Est. Patient 15:44:38 CDT Shonna Parker APRN [facility] CPT-70159 Level 4 Est. Patient 11:34:17 CDT Baltazar Childers MD [facility]-81573 Level 3 Est. Patient 16:40:40 CDT Baltazar Childers MD [facility]-40564 Level 4 Est. Patient 10:41:24 CDT Baltazar Childers MD [facility]-26989 Level 4 Est. Patient 16:01:48 CDT Baltazar Childers MD [facility]-09327 Level 4 Est. Patient 16:54:07 [address] [employer] Baltazar Childers MD [facility]-38824 Level 4 Est. Patient 15:42:12 CDT Baltazar Childers MD [facility] CPT-07680 Level 4 Est. Patient 11:29:55 CDT Baltazar Childers MD [facility] CPT-30974 Level 4 Est. Patient 14:15:19 CDT Baltazar Childers MD [facility] CPT-79308 Level 4 Est. Patient 12:20:13 CDT Baltazar Childers MD [facility] CPT-40316 Level 4 Est. Patient 14:52:45 [employer] [address] [employer] Baltazar Childers MD [facility] CPT-70842 Level 4 Est. Patient 14:18:34 [employer] [employer] Baltazar Childers MD [facility] CPT-85524 Level 4 Est. Patient 15:18:29 CDT Baltazar Childers MD [facility] CPT-71840 Level 3 Est. Patient 12:45:34 CDT Baltazar Childers MD [facility] CPT-45880 Level 3 Est. Patient 10:10:11 CDT Baltazar Childers MD [facility] CPT-54702 Level 3 Est. Patient 14:07:50 CDT Baltazar Childers MD [facility] CPT-51932 Level 4 Est. Patient 12:26:10 [employer] [employer] Baltazar Childers MD [facility] CPT-01737 Level 4 Est. Patient 14:45:38 CDT Baltazar Childers MD [facility] CPT-49425 Level 4 New Patient 12:30:48 CDT Baltazar hinton MD [facility] Procedures Code Procedure Name Date Entry Date Standard Desc ription CPT-000 Give Appropriate Flu Vaccine 12:25:14 CDT 2 CPT-83834 First Vx - Ix admin via ID I M or jet injects without counseling by physician 13:08:59 CDT CPT-81786 Fluzone Quadrivalent Intramuscular Suspe nsion 0.5 ML 13:08:59 CDT CPT-25355 Venipuncture Draw Fee 12:04:12 CDT CPT-26321 Lipid - LAB USE ONLY 17:39:15 [employer] SE[employer] 9 CPT-01060 HGBA1C - LAB USE ONLY 17:39:15 P[employer] [employer] CPT-63427 CMP - LAB USE ONLY 17:39:14 P[employer] CPT-86820 Venipuncture Draw Fee 17:39:14 P[employer] CPT-90145 First Vx - Ix admin via ID I M or jet injects without counseling by physician 16:55:17 P[employer] CPT-32976 Fluzone Quadrivalent Intramuscular Suspe nsion 0.5 ML 16:55:17 [employer] [employer] [employer] CPT-77273 Renal Panel - LAB USE ONLY 17:39:20 CDT 201 10/31/07 CPT-27105 CBC - LAB USE ONLY 17:39:20 CDT CPT-47775 Venipuncture Draw Fee 17:39:20 CDT CPT-91302 Venipuncture Draw Fee 14:33:30 CDT CPT-21739 Renal Panel - LAB USE ONLY 14:33:30 CDT 201 10/31/07 CPT-97261 CBC - LAB USE ONLY 14:33:29 CDT CPT-72803 Venipuncture Draw Fee 14:50:21 [employer] [employer] CPT-24840 Immunization Single Admin 17:35:35 CDT 2014 CPT-03206 Fluzone Quadrivalent preservative free ( >=3yrs.) 17:35:35 CDT CPT-78045 Venipuncture Draw Fee 12:10:27 P[employer] [employer] CPT-12927 Fluzone Quadrivalent Intramuscular Suspe nsion 0.5 ML 10:49:13 CDT CPT-32040 First Vx Component - Ix admi n via ID IM or jet inj without physician counseling 15:17:19 [employer] [employer] CPT-14118 Pneumovax 15:17:19 [employer] [employer] CPT-86843 Pneumovax 14:52:45 [employer] [employer] CPT-04214 Venipuncture Draw Fee 14:06:30 [employer] CPT-000 Give Appropriate Flu Vaccine 14:18:34 P[employer] [employer] 2 CPT-60147 Administration single or combination vac cine inc oral 14:46:00 [employer] CPT-37384 Influenza split virus > age 3 14:46:00 [employer] [employer] CPT-OV Office Visit 19:13:16 CDT CPT-27640 Zostavax 18:41:56 CDT CPT-02803 Administration single or combination vac cine inc oral 12:56:39 CDT CPT-11828 Zoster Vaccine (Zostavax) 12:56:39 CDT 2012 CPT-60971 Venipuncture Draw Fee 10:58:57 CDT CPT-76539 Sono pelvis non OB uterus ovaries cervix 17:45:04 CDT CPT-80983 Sono retroperitoneal complete kidneys an d bladder 17:14:36 CDT CPT-OV Office Visit 14:59:38 [address] [employer] CPT-J1070 Depo Testosterone 100 mg 14:50:13 CDT 03/05 CPT-60541 Abx/Therapy Injection 14:50:13 CDT CPT-19493 Administration single or combination vac cine inc oral 14:34:43 CDT CPT-45961 Influenza split virus > age 3 14:34:43 CDT CPT-J1070 Depo Testosterone 100 mg 17:37:13 CDT 01/11 CPT-91711 Abx/Therapy Injection 17:37:13 CDT CPT-63366 Venipuncture Draw Fee 16:30:13 CDT CPT-20899 Venipuncture Draw Fee 16:29:43 CDT CPT-J1070 Depo Testosterone 100 mg 14:45:38 CDT 01/11
--- OUTSIDE RECORDS SUMMARY | 2019-10-27 11:48 | XMS REPORT | Clinical Summary ---
Author Author Admin, [employer] Address Unknown Phone Unavailable Allergies, Adverse Reactions, [...] INJECTOR 33 units SC daily INSULIN GLARGINE 63638214049 Active Baltazar Childers MD Active TRAMADOL HCL 50 MG ORAL TABLET 1 twice a day as needed for pain TRAMADOL HCL 81501359474 No Longer Active Baltazar Childers MD Active ROBAXIN 500 MG ORAL TABLET Take 1.5 (one and one half) tabs once daily METHOCARBAMOL 17312726654 Active Baltazar Childers MD Active SYNTHROID 112 MCG ORAL TABLET Take one tablet a day LEVOTHYROXINE SODIUM 76990437454 Active Baltazar Childers MD Active TRUE METRIX AIR GLUCOSE METER DEVICE Use as directed BLOOD GLUCOSE MONITORING SUPPL 13499555932 Active Baltazar Childers MD Activ e TRUE METRIX BLOOD GLUCOSE TEST IN VITRO STRIP test blood sug ar BID Dx: E11.65 GLUCOSE BLOOD 16607940602 Active KENDALL Juarez Active NORTRIPTYLINE HCL 50 MG ORAL CAPSULE 1 twice a day for neuropathy 2 NORTRIPTYLINE HCL 55697640804 Active Baltazar Childers MD Acti ve ASPIRIN 81 MG TBEC Take one (1) tablet by mouth daily ASPIRIN 29819730421 Active Baltazar Childers MD Active GABAPENTIN 300 MG ORAL CAPSULE 1 three times a day 201 12/03/26 GABAPENTIN 15986549034 No Longer Active Baltazar Childers MD Activ e LISINOPRIL 20 MG ORAL TABLET 1 tablet by mouth daily at night 2016 LISINOPRIL 66990566412 Active Baltazar Childers MD Active ZITHROMAX Z-ISAIAS 250 MG ORAL TABLET Take two tablets to day and then 1 tablet daily for 4 days AZITHROMYCIN 78420811214 No Longer A ctive Baltazar Childers MD Active AMLODIPINE BESYLATE 5 MG ORAL TABLET 1 tab daily for HTN AMLODIPINE BESYLATE 30407325110 Active Baltazar Childers MD Active GLIPIZIDE 10 MG ORAL TABLET take 2 tablets twice daily GLIPIZIDE 77222710085 Active Baltazar Childers MD Active SUCRALFATE 1 GM ORAL TABLET 1 four times a day to coat the stoma ch SUCRALFATE 58375472916 No Longer Active Baltazar Childers MD Active PEN NEEDLES 31G X 6 MM use 1 daily INSULIN PEN NE EDLE 94632081347 Active KENDALL Juarez Active CELINA PARIKH 300 UNIT/ML SUBCUTANEOUS SOLUTION PEN- INJECTOR 10 units SC daily INSULIN GLARGINE 56968812511 No Longer Active Rola ARGUETA Active NAPROXEN SODIUM 220 MG ORAL TABLET 1 three times a day as needed NAPROXEN SODIUM 05464493039 No Longer Active Baltazar Childers MD Active ATORVASTATIN CALCIUM 20 MG ORAL TABLET Take 1 tab daily ATORVASTATIN CALCIUM 59096887666 Active Baltazar Childers MD A ctive FUROSEMIDE 40 MG ORAL TABLET Take one by mouth daily FUROSEMIDE 08390032152 Active Baltazar Childers MD Active LISINOPRIL 20 MG ORAL TABLET Take one by mouth daily at bedtime LISINOPRIL 64944824046 No Longer Active Baltazar Childers MD Active ONETOUCH ULTRA BLUE IN VITRO STRIP Test twice a day 07/11/11 GLUCOSE BLOOD 25636044342 No Longer Active Baltazar Childers MD Acti ve TRUEPLUS LANCETS 33G Test twice a day LANCETS 3988011 3203 Active KENDALL Juarez Active TRUEDRAW LANCING DEVICE Test twice a day LANCET DEVICES 63434531395 Active Baltazar Childers MD Active TRUETRACK BLOOD GLUCOSE w/Device KIT Test twice a day BLOOD GLUCOSE MONITORING SUPPL 77414265279 Active Baltazar Childers MD Activ e HYDROCODONE-ACETAMINOPHEN 7.5-325 MG ORAL TABLET Take 1 tab every 6-8 hours PRN HYDROCODONE-ACETAMINOPHEN 76095357748 Active Baltazar Nickerson MD Active GABAPENTIN 300 MG ORAL CAPSULE 1 po qd x 2 days, then 1 po BID x 2 days, then 1 po TID GABAPENTIN 32441786334 No Longer Active Baltazar Childers MD Active NAPROXEN 500 MG ORAL TABLET 1 tablet by mouth twice daily NAPROXEN 67215739978 No Longer Active Baltazar Childers MD Active PROAIR HFA 108 (90 Base) MCG/ACT INHALATION AEROSOL SO LUTION 2 puffs four times a day as needed ALBUTEROL SULFATE 41945539585 Active Shun Arellano LPN Active DEPO-TESTOSTERONE 200 MG/ML INTRAMUSCULAR SOLUTION as directed TESTOSTERONE CYPIONATE 64091332662 No Longer Active Baltazar Childers MD Active LIPITOR 20 MG ORAL TABLET Take one by mouth daily in evening ATORVASTATIN CALCIUM 62982469395 No Longer Active Baltazar Childers MD Active CRESTOR 10 MG ORAL TABLET 1 by mouth every day ROSUVASTATIN CALCIUM 69538381970 No Longer Active Baltazar Childers MD Active PHENTERMINE HCL 37.5 MG ORAL TABLET Take one by mouth daily PHENTERMINE HCL 70412358585 No Longer Active Baltazar Childers MD Ac tive TIZANIDINE HCL 4 MG ORAL TABLET 1 daily as needed for muscle spa sm TIZANIDINE HCL 75100731192 No Longer Active Dawna Salazar RN Active [id number] 50-325-40 MG ORAL TABLET 1 fo ur times a day as needed for heacache [id number] 22114456909 Active Beth Bruno, RMA Active SUMATRIPTAN SUCCINATE 100 MG ORAL TABLET 1 tablet by m outh at onset of migraine as needed SUMATRIPTAN SUCCINATE 04469890878 Active Beth KENDALL Laura Active LORATADINE 10 MG ORAL TABLET Take one by mouth daily LORATADINE 94644295311 Active Baltazar Childers MD Active OMEPRAZOLE 20 MG ORAL CAPSULE DELAYED RELEASE Take one by mouth jostin ly OMEPRAZOLE 46102363518 Active Baltazar Childers MD Active HYDROXYZINE HCL 25 MG ORAL TABLET Take one by mouth daily HYDROXYZINE HCL 59594466461 Active Baltazar Childers MD Active ALPRAZOLAM 1 MG ORAL TABLET 1 [facility] 38441365465 Active Baltazar Childers MD Active METFORMIN HCL 1000 MG ORAL TABLET Take one by mouth twice daily METFORMIN HCL 38044745427 Active Baltazar Childers MD Active TIZANIDINE HCL 4 MG ORAL TABLET 1 daily as needed for muscle spa sm TIZANIDINE HCL 4 MG ORAL TABLET 665034 TIZANIDINE HCL Inactive PHENTERMINE HCL 37.5 MG ORAL TABLET Take one by mouth daily PHENTERMINE HCL 37.5 MG ORAL TABLET 616845 PHENTERMINE HCL Inac tive CRESTOR 10 MG ORAL TABLET 1 by mouth every day CRESTOR 10 MG ORAL TABLET 904367 ROSUVASTATIN CALCIUM Inactive LIPITOR 20 MG ORAL TABLET Take one by mouth daily in evening LIPITOR 20 MG ORAL TABLET 672468 ATORVASTATIN CALCIUM Inactive DEPO-TESTOSTERONE 200 MG/ML INTRAMUSCULAR SOLUTION as directed DEPO-TESTOSTERONE 200 MG/ML INTRAMUSCULAR SOLUTION 8974959 RUFINO TOSTERONE CYPIONATE Inactive NAPROXEN 500 MG ORAL TABLET 1 tablet by mouth twice daily NAPROXEN 500 MG ORAL TABLET 305796 NAPROXEN Inactive GABAPENTIN 300 MG ORAL CAPSULE 1 po qd x 2 days, then 1 po BID x 2 days, then 1 po TID GABAPENTIN 300 MG ORAL CAPSULE 985330 GABAP ENTIN Inactive ONETOUCH ULTRA BLUE IN VITRO STRIP Test twice a day 07/11/11 ONETOUCH ULTRA BLUE IN VITRO STRIP GLUCOSE BLOOD Inact amie NAPROXEN SODIUM 220 MG ORAL TABLET 1 three times a day as needed NAPROXEN SODIUM 220 MG ORAL TABLET 664106 NAPROXEN SODI UM Inactive TOUJEO SOLOSTAR 300 UNIT/ML SUBCUTANEOUS SOLUTION PEN- INJECTOR 10 units SC daily TOUJEO SOLOSTAR 300 UNIT/ML SUBCUTANEOUS SOLUTION PEN-INJECTOR INSULIN GLARGINE Inactive SUCRALFATE 1 GM ORAL TABLET 1 four times a day to coat the stoma ch SUCRALFATE 1 GM ORAL TABLET 227716 SUCRALFATE Inac tive GABAPENTIN 300 MG ORAL CAPSULE 1 three times a day 201 12/03/26 GABAPENTIN 300 MG ORAL CAPSULE 735948 GABAPENTIN Inactive TRAMADOL HCL 50 MG ORAL TABLET 1 twice a day as needed for pain TRAMADOL HCL 50 MG ORAL TABLET 774679 TRAMADOL HCL I nactive ZITHROMAX Z-ISAIAS 250 MG ORAL TABLET Take two tablets to day and then 1 tablet daily for 4 days ZITHROMAX Z-ISAIAS 250 MG ORAL TAB LET 421266 AZITHROMYCIN Inactive Immunizations Vaccine Administration Date Value Standard Floyd cription influenza immunization (Flu Vax) has been administered 05/11 Done according to patient influenza virus vaccine, unspecified for mulation pneumococcal immunization administered Pneumovax 23 [CVX33] pneumococcal polysaccharide vaccine, 23 valent Seasonal influenza vaccine, injectable, containing preservative, for > 3 years old (Afluria, FluLaval, Fluzone, Fluvirin, Fluarix, Agriflu(>= 18 yo)) Fluzone (>3 yrs.) [[id number]] Influenza, seasonal, inject able Seasonal influenza vaccine, injectable, containing preservative, for > 3 years old (Afluria, FluLaval, Fluzone, Fluvirin, Fluarix, Agriflu(>= 18 yo)) Fluzone (>3 yrs.) [[id number]] Influenza, seasonal, inject able Vital Signs Date [...] 4.8 mmol/L 3.5-5.2 sodium, serum 139 mmol/L 186-050 2618/06/26 calcium, serum 9.7 mg/dL 8.5-10.1 Lab Report: HGBA1C - Chemistry hemoglobin A1C, blood, as % of total hemoglobin 7.4 % 4.3-6.0 Lab Report: HGBA1C, CBC, Comp. Metabolic Panel, Cholesterol, Triglycerid ... - Chemistry hemoglobin A1C, blood, as % of total hemoglobin 8.5 % 4.3-6.0 calcium, serum 9.2 mg/dL 8.5-10.1 bilirubin, serum, total 0.40 mg/dL 0.00-1.00 cholesterol, serum 218 mg/dL 034-540 9914/12/18 triglyceride, serum, fasting 357 mg/dL 30-200 HDL cholesterol, serum 49 mg/dL 32-60 LDL cholesterol, serum 103.00 mg/dL 5.00-130.00 sodium, serum 142 mmol/L 251-224 1952/12/18 carbon dioxide, venous blood 32.5 mmol/L 21.0-32 [...] 11 .6-14.8 platelet count 326 10^3/MM^3 10*3/mm3 317-190 4672/12/18 hemoglobin, blood 12.0 g/dL 12.0-16.0 erythrocyte (RBC) count 4.09 10^6/MM^3 10*6/mm3 3.80-5.8 0 leukocyte count, blood 6.8 10^3/MM^3 10*3/mm3 4.6-10.2 Lab Report: HGBA1C, CBC, Comp. Metabolic Panel, Cholesterol, Triglycerid ... - Lab Alkaline phosphatase 63 50-136 Lab Report: Thyroid Stimulating Hormone (L) - Chemistry TSH 8.56 m[iU]/mL 0.36-3.74 Encounters Code Encounter Date Provider Facility CPT-60965 [id number] Vst-Est Level IV 15:12:52 JIGGER MACHINE OPERATOR Charlie Childers MD [facility] CPT-52354 [id number] Vst-Est Level IV 15:30:55 JIGGER MACHINE OPERATOR Charlie Childers MD [facility] CPT-42297 [id number] Vst-Est Level IV 13:49:06 C ELIOT [facility] CPT-00740 Level 4 Est. Patient 17:26:08 [facility] [id number] Vst-Est Level V 14:26:27 CDT Aneudy Childers MD [facility] CPT-18592 Level 4 Est. Patient 17:05:37 CDT Baltazar Childers MD [facility]-07842 Level 4 Est. Patient 16:21:19 JIGGER MACHINE OPERATOR Baltazar Childers MD [facility]-67880 Level 4 Est. Patient 12:25:11 CDT Baltazar Childers MD [facility]-79448 Level 4 Est. Patient 14:22:31 CDT Baltazar Childers MD [facility]-63716 Level 4 Est. Patient 15:44:38 CDT Shonna Parker APRN [facility] CPT-09903 Level 4 Est. Patient 11:34:17 CDT Baltazar Childers MD [facility]-01215 Level 3 Est. Patient 16:40:40 CDT Baltazar Childers MD [facility]-66742 Level 4 Est. Patient 10:41:24 CDT Baltazar Childers MD [facility]-08896 Level 4 Est. Patient 16:01:48 CDT Baltazar Childers MD [facility]-61925 Level 4 Est. Patient 16:54:07 JIGGER MACHINE OPERATOR Baltazar Childers MD [facility]-86352 Level 4 Est. Patient 15:42:12 CDT Baltazar Childers MD [facility] CPT-91492 Level 4 Est. Patient 11:29:55 CDT Baltazar Childers MD [facility] CPT-08507 Level 4 Est. Patient 14:15:19 CDT Baltazar Childers MD [facility] CPT-94851 Level 4 Est. Patient 12:20:13 CDT Baltazar Childers MD [facility] CPT-89475 Level 4 Est. Patient 14:52:45 JIGGER MACHINE OPERATOR Baltazar Childers MD [facility] CPT-02209 Level 4 Est. Patient 14:18:34 JIGGER MACHINE OPERATOR Baltazar Childers MD [facility] CPT-31638 Level 4 Est. Patient 15:18:29 CDT Baltazar Childers MD [facility] CPT-30840 Level 3 Est. Patient 12:45:34 CDT Baltazar Childers MD [facility] CPT-62447 Level 3 Est. Patient 10:10:11 CDT Baltazar Childers MD [facility] CPT-37749 Level 3 Est. Patient 14:07:50 CDT Baltazar Childers MD [facility] CPT-70232 Level 4 Est. Patient 12:26:10 JIGGER MACHINE OPERATOR Baltazar Childers MD [facility] CPT-75882 Level 4 Est. Patient 14:45:38 CDT Baltazar Childers MD [facility] CPT-56249 Level 4 New Patient 12:30:48 CDT Baltazar hinton MD [facility] Procedures Code Procedure Name Date Entry Date Standard Desc ription CPT-000 Give Appropriate Flu Vaccine 12:25:14 CDT 2 CPT-87453 First Vx - Ix admin via ID I M or jet injects without counseling by physician 13:08:59 CDT CPT-87756 Fluzone Quadrivalent Intramuscular Suspe nsion 0.5 ML 13:08:59 CDT CPT-48097 Venipuncture Draw Fee 12:04:12 CDT CPT-59653 Lipid - LAB USE ONLY 17:39:15 JIGGER MACHINE OPERATOR 9 CPT-07353 HGBA1C - LAB USE ONLY 17:39:15 JIGGER MACHINE OPERATOR CPT-29823 CMP - LAB USE ONLY 17:39:14 JIGGER MACHINE OPERATOR CPT-85661 Venipuncture Draw Fee 17:39:14 JIGGER MACHINE OPERATOR CPT-06651 First Vx - Ix admin via ID I M or jet injects without counseling by physician 16:55:17 JIGGER MACHINE OPERATOR CPT-65810 Fluzone Quadrivalent Intramuscular Suspe nsion 0.5 ML 16:55:17 JIGGER MACHINE OPERATOR CPT-81498 Renal Panel - LAB USE ONLY 17:39:20 CDT 201 10/31/07 CPT-43506 CBC - LAB USE ONLY 17:39:20 CDT CPT-97190 Venipuncture Draw Fee 17:39:20 CDT CPT-59979 Venipuncture Draw Fee 14:33:30 CDT CPT-29674 Renal Panel - LAB USE ONLY 14:33:30 CDT 201 10/31/07 CPT-85611 CBC - LAB USE ONLY 14:33:29 CDT CPT-48046 Venipuncture Draw Fee 14:50:21 JIGGER MACHINE OPERATOR CPT-84495 Immunization Single Admin 17:35:35 CDT 2014 CPT-28298 Fluzone Quadrivalent preservative free ( >=3yrs.) 17:35:35 CDT CPT-17576 Venipuncture Draw Fee 12:10:27 JIGGER MACHINE OPERATOR CPT-54970 Fluzone Quadrivalent Intramuscular Suspe nsion 0.5 ML 10:49:13 CDT CPT-82519 First Vx Component - Ix admi n via ID IM or jet inj without physician counseling 15:17:19 JIGGER MACHINE OPERATOR CPT-02871 Pneumovax 15:17:19 JIGGER MACHINE OPERATOR CPT-12666 Pneumovax 14:52:45 JIGGER MACHINE OPERATOR CPT-35762 Venipuncture Draw Fee 14:06:30 JIGGER MACHINE OPERATOR CPT-000 Give Appropriate Flu Vaccine 14:18:34 JIGGER MACHINE OPERATOR 2 CPT-83503 Administration single or combination vac cine inc oral 14:46:00 JIGGER MACHINE OPERATOR CPT-70264 Influenza split virus > age 3 14:46:00 JIGGER MACHINE OPERATOR CPT-OV Office Visit 19:13:16 CDT CPT-69138 Zostavax 18:41:56 CDT CPT-79430 Administration single or combination vac cine inc oral 12:56:39 CDT CPT-92469 Zoster Vaccine (Zostavax) 12:56:39 CDT 2012 CPT-67340 Venipuncture Draw Fee 10:58:57 CDT CPT-06682 Sono pelvis non OB uterus ovaries cervix 17:45:04 CDT CPT-17141 Sono retroperitoneal complete kidneys an d bladder 17:14:36 CDT CPT-OV Office Visit 14:59:38 JIGGER MACHINE OPERATOR CPT-J1070 Depo Testosterone 100 mg 14:50:13 CDT 03/05 CPT-14222 Abx/Therapy Injection 14:50:13 CDT CPT-32367 Administration single or combination vac cine inc oral 14:34:43 CDT CPT-93968 Influenza split virus > age 3 14:34:43 CDT CPT-J1070 Depo Testosterone 100 mg 17:37:13 CDT 01/11 CPT-81512 Abx/Therapy Injection 17:37:13 CDT CPT-90957 Venipuncture Draw Fee 16:30:13 CDT CPT-88603 Venipuncture Draw Fee 16:29:43 CDT CPT-J1070 Depo Testosterone 100 mg 14:45:38 CDT 01/11
--- OUTSIDE RECORDS SUMMARY | 2019-10-27 11:49 | XMS REPORT | Clinical Summary ---
Author Author Admin, [employer] Address Unknown Phone Unavailable Allergies, Adverse Reactions, [...] ronary atherosclerosis of unspecified type of vessel, [place] or graft OTH NONSPC ABN FINDNG [...] stage III 585.3 Refinement 201 10/25/03 [place] LNIDSEYA Chronic kidney disease, Stage III (moder ate) [...] Index 37.0-37.9, adult BMI 36-36.9 V85.37 Active Baltazra Childers MD Body Mass Index 37.0-37.9, adult Screening mammogram V76.12 Active Baltazar bynum MD Other screening mammogram COLON POLYPS ICD-211.3 Inactive Lolis King JOSE Bynum Pharyngitis ICD-462 Inactive Baltazar Childers MD Medication List Medication Instructions Start Date Stop Date Generic Name NDC Status Provider Patient Instruction LANTUS SOLOSTAR 100 UNIT/ML SUBCUTANEOUS SOLUTION PEN- INJECTOR 33 units SC daily INSULIN GLARGINE 23454304118 Active Baltazar Childers MD Active TRAMADOL HCL 50 MG ORAL TABLET 1 twice a day as needed for pain TRAMADOL HCL 59718053404 No Longer Active Baltazar Childers MD Active ROBAXIN 500 MG ORAL TABLET Take 1.5 (one and one half) tabs once daily METHOCARBAMOL 24482023507 Active Baltazar Childers MD Active SYNTHROID 112 MCG ORAL TABLET Take one tablet a day LEVOTHYROXINE SODIUM 53200462873 Active Baltazar Childers MD Active TRUE METRIX AIR GLUCOSE METER DEVICE Use as directed BLOOD GLUCOSE MONITORING SUPPL 33512365855 Active Baltazar Childers MD Activ e TRUE METRIX BLOOD GLUCOSE TEST IN VITRO STRIP test blood sug ar BID Dx: E11.65 GLUCOSE BLOOD 16687224147 Active KENDALL Juarez Active NORTRIPTYLINE HCL 50 MG ORAL CAPSULE 1 twice a day for neuropathy 2 NORTRIPTYLINE HCL 49914859509 Active Baltazar Childers MD Acti ve ASPIRIN 81 MG TBEC Take one (1) tablet by mouth daily ASPIRIN 78168476812 Active Baltazar Childers MD Active GABAPENTIN 300 MG ORAL CAPSULE 1 three times a day 201 12/03/26 GABAPENTIN 68740176699 No Longer Active Baltazar Childers MD Activ e LISINOPRIL 20 MG ORAL TABLET 1 tablet by mouth daily at night 2016 LISINOPRIL 64897601755 Active Baltazar Childers MD Active ZITHROMAX Z-ISAIAS 250 MG ORAL TABLET Take two tablets to day and then 1 tablet daily for 4 days AZITHROMYCIN 28987250508 No Longer A ctive Baltazar Childers MD Active AMLODIPINE BESYLATE 5 MG ORAL TABLET 1 tab daily for HTN AMLODIPINE BESYLATE 11782318158 Active Baltazar Childers MD Active GLIPIZIDE 10 MG ORAL TABLET take 2 tablets twice daily GLIPIZIDE 21343833484 Active Baltazar Childers MD Active SUCRALFATE 1 GM ORAL TABLET 1 four times a day to coat the stoma ch SUCRALFATE 04289004754 No Longer Active Baltazar Childers MD Active PEN NEEDLES 31G X 6 MM use 1 daily INSULIN PEN NE EDLE 67843370204 Active KENDALL Jaurez Active CELINA PARIKH 300 UNIT/ML SUBCUTANEOUS SOLUTION PEN- INJECTOR 10 units SC daily INSULIN GLARGINE 14740353188 No Longer Active Rola ARGUETA Active NAPROXEN SODIUM 220 MG ORAL TABLET 1 three times a day as needed NAPROXEN SODIUM 81504467163 No Longer Active Baltazar Childers MD Active ATORVASTATIN CALCIUM 20 MG ORAL TABLET Take 1 tab daily ATORVASTATIN CALCIUM 97804605441 Active Baltazar Childers MD A ctive FUROSEMIDE 40 MG ORAL TABLET Take one by mouth daily FUROSEMIDE 34622399054 Active Baltazar Childers MD Active LISINOPRIL 20 MG ORAL TABLET Take one by mouth daily at bedtime LISINOPRIL 80758994736 No Longer Active Baltazar Childers MD Active ONETOUCH ULTRA BLUE IN VITRO STRIP Test twice a day 07/11/11 GLUCOSE BLOOD 46913267669 No Longer Active Baltazar Childers MD Acti ve TRUEPLUS LANCETS 33G Test twice a day LANCETS 0212562 7906 Active KENDALL Juarez Active TRUEDRAW LANCING DEVICE Test twice a day LANCET DEVICES 24447165562 Active Baltazar Childers MD Active TRUETRACK BLOOD GLUCOSE w/Device KIT Test twice a day BLOOD GLUCOSE MONITORING SUPPL 69073218492 Active Baltazar Childers MD Activ e HYDROCODONE-ACETAMINOPHEN 7.5-325 MG ORAL TABLET Take 1 tab every 6-8 hours PRN HYDROCODONE-ACETAMINOPHEN 80115388468 Active Baltazar Nickerson MD Active GABAPENTIN 300 MG ORAL CAPSULE 1 po qd x 2 days, then 1 po BID x 2 days, then 1 po TID GABAPENTIN 13907679588 No Longer Active Baltazar Childers MD Active NAPROXEN 500 MG ORAL TABLET 1 tablet by mouth twice daily NAPROXEN 61069847870 No Longer Active Baltazar Childers MD Active PROAIR HFA 108 (90 Base) MCG/ACT INHALATION AEROSOL SO LUTION 2 puffs four times a day as needed ALBUTEROL SULFATE 42202281649 Active Shun Arellano LPN Active DEPO-TESTOSTERONE 200 MG/ML INTRAMUSCULAR SOLUTION as directed TESTOSTERONE CYPIONATE 17721218456 No Longer Active Baltazar Childers MD Active LIPITOR 20 MG ORAL TABLET Take one by mouth daily in evening ATORVASTATIN CALCIUM 13602583270 No Longer Active Baltazar Childers MD Active CRESTOR 10 MG ORAL TABLET 1 by mouth every day ROSUVASTATIN CALCIUM 84681130796 No Longer Active Baltazar Childers MD Active PHENTERMINE HCL 37.5 MG ORAL TABLET Take one by mouth daily PHENTERMINE HCL 93052812824 No Longer Active Baltazar Childers MD Ac tive TIZANIDINE HCL 4 MG ORAL TABLET 1 daily as needed for muscle spa sm TIZANIDINE HCL 61228483840 No Longer Active Dawna Salazar RN Active [id number] 50-325-40 MG ORAL TABLET 1 fo ur times a day as needed for heacache [id number] 28852334924 Active Beth Bruno, RMA Active SUMATRIPTAN SUCCINATE 100 MG ORAL TABLET 1 tablet by m outh at onset of migraine as needed SUMATRIPTAN SUCCINATE 60529824090 Active Beth KENDALL Laura Active LORATADINE 10 MG ORAL TABLET Take one by mouth daily LORATADINE 13307701411 Active Baltazar Childers MD Active OMEPRAZOLE 20 MG ORAL CAPSULE DELAYED RELEASE Take one by mouth jostin ly OMEPRAZOLE 34450651863 Active Baltazar Childers MD Active HYDROXYZINE HCL 25 MG ORAL TABLET Take one by mouth daily HYDROXYZINE HCL 47429576701 Active Baltazar Childers MD Active ALPRAZOLAM 1 MG ORAL TABLET 1 [facility] 05856356778 Active Baltazar Childers MD Active METFORMIN HCL 1000 MG ORAL TABLET Take one by mouth twice daily METFORMIN HCL 44386647865 Active Baltazar Childers MD Active TIZANIDINE HCL 4 MG ORAL TABLET 1 daily as needed for muscle spa sm TIZANIDINE HCL 4 MG ORAL TABLET 590421 TIZANIDINE HCL Inactive PHENTERMINE HCL 37.5 MG ORAL TABLET Take one by mouth daily PHENTERMINE HCL 37.5 MG ORAL TABLET 416651 PHENTERMINE HCL Inac tive CRESTOR 10 MG ORAL TABLET 1 by mouth every day CRESTOR 10 MG ORAL TABLET 879626 ROSUVASTATIN CALCIUM Inactive LIPITOR 20 MG ORAL TABLET Take one by mouth daily in evening LIPITOR 20 MG ORAL TABLET 902723 ATORVASTATIN CALCIUM Inactive DEPO-TESTOSTERONE 200 MG/ML INTRAMUSCULAR SOLUTION as directed DEPO-TESTOSTERONE 200 MG/ML INTRAMUSCULAR SOLUTION 0550320 RUFINO TOSTERONE CYPIONATE Inactive NAPROXEN 500 MG ORAL TABLET 1 tablet by mouth twice daily NAPROXEN 500 MG ORAL TABLET 652272 NAPROXEN Inactive GABAPENTIN 300 MG ORAL CAPSULE 1 po qd x 2 days, then 1 po BID x 2 days, then 1 po TID GABAPENTIN 300 MG ORAL CAPSULE 737303 GABAP ENTIN Inactive ONETOUCH ULTRA BLUE IN VITRO STRIP Test twice a day 07/11/11 ONETOUCH ULTRA BLUE IN VITRO STRIP GLUCOSE BLOOD Inact amie NAPROXEN SODIUM 220 MG ORAL TABLET 1 three times a day as needed NAPROXEN SODIUM 220 MG ORAL TABLET 715651 NAPROXEN SODI UM Inactive TOUJEO SOLOSTAR 300 UNIT/ML SUBCUTANEOUS SOLUTION PEN- INJECTOR 10 units SC daily TOUJEO SOLOSTAR 300 UNIT/ML SUBCUTANEOUS SOLUTION PEN-INJECTOR INSULIN GLARGINE Inactive SUCRALFATE 1 GM ORAL TABLET 1 four times a day to coat the stoma ch SUCRALFATE 1 GM ORAL TABLET 594306 SUCRALFATE Inac tive GABAPENTIN 300 MG ORAL CAPSULE 1 three times a day 201 12/03/26 GABAPENTIN 300 MG ORAL CAPSULE 644357 GABAPENTIN Inactive TRAMADOL HCL 50 MG ORAL TABLET 1 twice a day as needed for pain TRAMADOL HCL 50 MG ORAL TABLET 093917 TRAMADOL HCL I nactive ZITHROMAX Z-ISAIAS 250 MG ORAL TABLET Take two tablets to day and then 1 tablet daily for 4 days ZITHROMAX Z-ISAIAS 250 MG ORAL TAB LET 113492 AZITHROMYCIN Inactive Immunizations Vaccine Administration Date Value Standard Floyd cription influenza immunization (Flu Vax) has been administered 05/11 Done according to patient influenza virus vaccine, unspecified for mulation pneumococcal immunization administered Pneumovax 23 [CVX33] pneumococcal polysaccharide vaccine, 23 valent Seasonal influenza vaccine, injectable, containing preservative, for > 3 years old (Afluria, FluLaval, Fluzone, Fluvirin, Fluarix, Agriflu(>= 18 yo)) Fluzone (>3 yrs.) [ROG797] Influenza, seasonal, inject able Seasonal influenza vaccine, injectable, containing preservative, for > 3 years old (Afluria, FluLaval, Fluzone, Fluvirin, Fluarix, Agriflu(>= 18 yo)) Fluzone (>3 yrs.) [MNL753] Influenza, seasonal, inject able Vital Signs Date [...] - Chem istry sodium, serum 139 mmol/L 443-983 3511/06/26 potassium, serum 4.8 mmol/L 3.5-5.2 chloride, serum [...] 0.40 mg/dL 0.00-1.00 cholesterol, serum 218 mg/dL 037-659 1174/12/18 triglyceride, serum, fasting 357 mg/dL 30-200 HDL cholesterol, serum 49 mg/dL 32-60 LDL cholesterol, serum 103.00 mg/dL 5.00-130.00 sodium, serum 142 mmol/L 649-345 3454/12/18 carbon dioxide, venous blood 32.5 mmol/L 21.0-32 [...] negative Encounters Code Encounter Date Provider Facility CPT-84094 [id number] Vst-Est Level IV 15:12:52 INDUSTRIAL MAINTENANCE MANAGER Charlie Childers MD [facility] CPT-21190 11364-Ckb Vst-Est Level IV 15:30:55 INDUSTRIAL MAINTENANCE MANAGER Charlie Childers MD [facility]-87753 22170-Dck Vst-Est Level IV 13:49:06 C DT Ann Martinez [facility] CPT-14416 Level 4 Est. Patient 17:26:08 CDT Ann trujillo [facility] CPT-90645 72709-Rnt Vst-Est Level V 14:26:27 CDT Aneudy Childers MD [facility] CPT-37965 Level 4 Est. Patient 17:05:37 CDT Baltazar Childers MD [facility] CPT-13354 Level 4 Est. Patient 16:21:19 INDUSTRIAL MAINTENANCE MANAGER Baltazar Childers MD [facility] CPT-06348 Level 4 Est. Patient 12:25:11 CDT Baltazar Childers MD [facility] CPT-64351 Level 4 Est. Patient 14:22:31 CDT Baltazar Childers MD [facility] CPT-72885 Level 4 Est. Patient 15:44:38 CDT Shonna Parker APRN [facility] CPT-16731 Level 4 Est. Patient 11:34:17 CDT Baltazar Childers MD [facility] CPT-02338 Level 3 Est. Patient 16:40:40 CDT Baltazar Childers MD [facility] CPT-40351 Level 4 Est. Patient 10:41:24 CDT Baltazar Childers MD [facility] CPT-84045 Level 4 Est. Patient 16:01:48 CDT Baltazar Childers MD [facility] CPT-95511 Level 4 Est. Patient 16:54:07 INDUSTRIAL MAINTENANCE MANAGER Baltazar Childers MD [facility] CPT-63883 Level 4 Est. Patient 15:42:12 CDT Baltazar Childers MD [facility] CPT-91701 Level 4 Est. Patient 11:29:55 CDT Baltazar Childers MD [facility] CPT-15386 Level 4 Est. Patient 14:15:19 CDT Baltazar Childers MD [facility] CPT-64374 Level 4 Est. Patient 12:20:13 CDT Baltazar Childers MD [facility] CPT-13383 Level 4 Est. Patient 14:52:45 INDUSTRIAL MAINTENANCE MANAGER Baltazar Childers MD [facility] CPT-98433 Level 4 Est. Patient 14:18:34 INDUSTRIAL MAINTENANCE MANAGER Baltazar Childers MD [facility] CPT-66214 Level 4 Est. Patient 15:18:29 CDT Baltazar Childers MD [facility] CPT-65257 Level 3 Est. Patient 12:45:34 CDT Baltazar Childers MD [facility] CPT-64979 Level 3 Est. Patient 10:10:11 CDT Baltazar Childers MD [facility] CPT-19817 Level 3 Est. Patient 14:07:50 CDT Baltazar Childers MD [facility] CPT-38612 Level 4 Est. Patient 12:26:10 INDUSTRIAL MAINTENANCE MANAGER Baltazar Childers MD [facility] CPT-42702 Level 4 Est. Patient 14:45:38 CDT Baltazar Childers MD [facility] CPT-97405 Level 4 New Patient 12:30:48 CDT Baltazar hinton MD [facility] Procedures Code Procedure Name Date Entry Date Standard Desc ription CPT-000 Give Appropriate Flu Vaccine 12:25:14 CDT 2 CPT-74311 First Vx - Ix admin via ID I M or jet injects without counseling by physician 13:08:59 CDT CPT-78896 Fluzone Quadrivalent Intramuscular Suspe nsion 0.5 ML 13:08:59 CDT CPT-04926 Venipuncture Draw Fee 12:04:12 CDT CPT-37465 Lipid - LAB USE ONLY 17:39:15 INDUSTRIAL MAINTENANCE MANAGER 9 CPT-66487 HGBA1C - LAB USE ONLY 17:39:15 INDUSTRIAL MAINTENANCE MANAGER CPT-06503 CMP - LAB USE ONLY 17:39:14 INDUSTRIAL MAINTENANCE MANAGER CPT-40094 Venipuncture Draw Fee 17:39:14 INDUSTRIAL MAINTENANCE MANAGER CPT-21307 First Vx - Ix admin via ID I M or jet injects without counseling by physician 16:55:17 INDUSTRIAL MAINTENANCE MANAGER CPT-13595 Fluzone Quadrivalent Intramuscular Suspe nsion 0.5 ML 16:55:17 INDUSTRIAL MAINTENANCE MANAGER CPT-67716 Renal Panel - LAB USE ONLY 17:39:20 CDT 201 10/31/07 CPT-21546 CBC - LAB USE ONLY 17:39:20 CDT CPT-00115 Venipuncture Draw Fee 17:39:20 CDT CPT-75726 Venipuncture Draw Fee 14:33:30 CDT CPT-38939 Renal Panel - LAB USE ONLY 14:33:30 CDT 201 10/31/07 CPT-28839 CBC - LAB USE ONLY 14:33:29 CDT CPT-10630 Venipuncture Draw Fee 14:50:21 INDUSTRIAL MAINTENANCE MANAGER CPT-48998 Immunization Single Admin 17:35:35 CDT 2014 CPT-95540 Fluzone Quadrivalent preservative free ( >=3yrs.) 17:35:35 CDT CPT-46001 Venipuncture Draw Fee 12:10:27 INDUSTRIAL MAINTENANCE MANAGER CPT-75323 Fluzone Quadrivalent Intramuscular Suspe nsion 0.5 ML 10:49:13 CDT CPT-46533 First Vx Component - Ix admi n via ID IM or jet inj without physician counseling 15:17:19 INDUSTRIAL MAINTENANCE MANAGER CPT-33973 Pneumovax 23 15:17:19 INDUSTRIAL MAINTENANCE MANAGER CPT-87591 Pneumovax 14:52:45 INDUSTRIAL MAINTENANCE MANAGER CPT-10106 Venipuncture Draw Fee 14:06:30 INDUSTRIAL MAINTENANCE MANAGER CPT-000 Give Appropriate Flu Vaccine 14:18:34 INDUSTRIAL MAINTENANCE MANAGER 2 CPT-82059 Administration single or combination vac cine inc oral 14:46:00 INDUSTRIAL MAINTENANCE MANAGER CPT-25659 Influenza split virus > age 3 14:46:00 INDUSTRIAL MAINTENANCE MANAGER CPT-OV Office Visit 19:13:16 CDT CPT-16495 Zostavax 18:41:56 CDT CPT-92574 Administration single or combination vac cine inc oral 12:56:39 CDT CPT-97654 Zoster Vaccine (Zostavax) 12:56:39 CDT 2012 CPT-56897 Venipuncture Draw Fee 10:58:57 CDT CPT-67457 Sono pelvis non OB uterus ovaries cervix 17:45:04 CDT CPT-12765 Sono retroperitoneal complete kidneys an d bladder 17:14:36 CDT CPT-OV Office Visit 14:59:38 INDUSTRIAL MAINTENANCE MANAGER CPT-J1070 Depo Testosterone 100 mg 14:50:13 CDT 03/05 CPT-77017 Abx/Therapy Injection 14:50:13 CDT CPT-10801 Administration single or combination vac cine inc oral 14:34:43 CDT CPT-30551 Influenza split virus > age 3 14:34:43 CDT CPT-J1070 Depo Testosterone 100 mg 17:37:13 CDT 01/11 CPT-51806 Abx/Therapy Injection 17:37:13 CDT CPT-56879 Venipuncture Draw Fee 16:30:13 CDT CPT-39043 Venipuncture Draw Fee 16:29:43 CDT CPT-J1070 Depo Testosterone 100 mg 14:45:38 CDT 01/11
--- OUTSIDE RECORDS SUMMARY | 2019-10-27 11:49 | XMS REPORT | Clinical Summary ---
Author Author Admin, [employer] Address Unknown Phone Unavailable Allergies, Adverse Reactions, [...] ronary atherosclerosis of unspecified type of vessel, saxman or graft OTH NONSPC ABN FINDNG RAD&OTH [...] LPN Unspecified hypothyroidism Pharyngitis 462 Resolved Baltazar Childesr MD Acute pharyngitis BMI 37-37.9 adult V85.37 Refinement Baltazar matta MD Body Mass Index 37.0-37.9, adult BMI 36-36.9 V85.37 Active Baltazar Childers MD Body Mass Index 37.0-37.9, adult Screening mammogram V76.12 Active Baltazar bynum MD Other screening mammogram Pharyngitis ICD-462 Inactive Baltazar Childers MD COLON POLYPS ICD-211.3 Inactive Lolis Thomas APR N Medication List Medication Instructions Start Date Stop Date Generic Name NDC Status Provider Patient Instruction LANTUS SOLOSTAR 100 UNIT/ML SUBCUTANEOUS SOLUTION PEN- INJECTOR 33 units SC daily INSULIN GLARGINE 53293470313 Active Baltazar Childers MD Active TRAMADOL HCL 50 MG ORAL TABLET 1 twice a day as needed for pain TRAMADOL HCL 43383543472 No Longer Active Baltazar Childers MD Active ROBAXIN 500 MG ORAL TABLET Take 1.5 (one and one half) tabs once daily METHOCARBAMOL 73792779418 Active Baltazar Childers MD Active SYNTHROID 112 MCG ORAL TABLET Take one tablet a day LEVOTHYROXINE SODIUM 45099502615 Active Baltazar Childers MD Active TRUE METRIX AIR GLUCOSE METER DEVICE Use as directed BLOOD GLUCOSE MONITORING SUPPL 25653187039 Active Baltazar Childers MD Activ e TRUE METRIX BLOOD GLUCOSE TEST IN VITRO STRIP test blood sug ar BID Dx: E11.65 GLUCOSE BLOOD 28696120960 Active KENDALL Juarez Active NORTRIPTYLINE HCL 50 MG ORAL CAPSULE 1 twice a day for neuropathy 2 NORTRIPTYLINE HCL 34040321340 Active Baltazar Childers MD Acti ve ASPIRIN 81 MG TBEC Take one (1) tablet by mouth daily ASPIRIN 27961766441 Active Baltazar Childers MD Active GABAPENTIN 300 MG ORAL CAPSULE 1 three times a day 201 12/03/26 GABAPENTIN 48419961009 No Longer Active Baltazar Childers MD Activ e LISINOPRIL 20 MG ORAL TABLET 1 tablet by mouth daily at night 2016 LISINOPRIL 27086934312 Active Baltazar Childers MD Active ZITHROMAX Z-ISAIAS 250 MG ORAL TABLET Take two tablets to day and then 1 tablet daily for 4 days AZITHROMYCIN 94395878618 No Longer A ctive Baltazar Childers MD Active AMLODIPINE BESYLATE 5 MG ORAL TABLET 1 tab daily for HTN AMLODIPINE BESYLATE 68917206502 Active Baltazar Childers MD Active GLIPIZIDE 10 MG ORAL TABLET take 2 tablets twice daily GLIPIZIDE 49450205609 Active Baltazar Childers MD Active SUCRALFATE 1 GM ORAL TABLET 1 four times a day to coat the stoma ch SUCRALFATE 63929755386 No Longer Active Baltazar Childers MD Active PEN NEEDLES 31G X 6 MM use 1 daily INSULIN PEN NE EDLE 76603084106 Active KENDALL Juarez Active CELINA PARIKH 300 UNIT/ML SUBCUTANEOUS SOLUTION PEN- INJECTOR 10 units SC daily INSULIN GLARGINE 90173413404 No Longer Active Rola ARGUETA Active NAPROXEN SODIUM 220 MG ORAL TABLET 1 three times a day as needed NAPROXEN SODIUM 71639140811 No Longer Active Baltazar Childers MD Active ATORVASTATIN CALCIUM 20 MG ORAL TABLET Take 1 tab daily ATORVASTATIN CALCIUM 98752559623 Active Baltazar Childers MD A ctive FUROSEMIDE 40 MG ORAL TABLET Take one by mouth daily FUROSEMIDE 30707353453 Active Baltazar Childers MD Active LISINOPRIL 20 MG ORAL TABLET Take one by mouth daily at bedtime LISINOPRIL 58367305658 No Longer Active Baltazar Childers MD Active ONETOUCH ULTRA BLUE IN VITRO STRIP Test twice a day 07/11/11 GLUCOSE BLOOD 29523293438 No Longer Active Baltazar Childers MD Acti ve TRUEPLUS LANCETS 33G Test twice a day LANCETS 5402816 8491 Active KENDALL Juarez Active TRUEDRAW LANCING DEVICE Test twice a day LANCET DEVICES 28614481747 Active Baltazar Childers MD Active TRUETRACK BLOOD GLUCOSE w/Device KIT Test twice a day BLOOD GLUCOSE MONITORING SUPPL 33643478299 Active Baltazar Childers MD Activ e HYDROCODONE-ACETAMINOPHEN 7.5-325 MG ORAL TABLET Take 1 tab every 6-8 hours PRN HYDROCODONE-ACETAMINOPHEN 12776428963 Active Baltazar Nickerson MD Active GABAPENTIN 300 MG ORAL CAPSULE 1 po qd x 2 days, then 1 po BID x 2 days, then 1 po TID GABAPENTIN 96618592032 No Longer Active Baltazar Childers MD Active NAPROXEN 500 MG ORAL TABLET 1 tablet by mouth twice daily NAPROXEN 05006956047 No Longer Active Baltazar Childers MD Active PROAIR HFA 108 (90 Base) MCG/ACT INHALATION AEROSOL SO LUTION 2 puffs four times a day as needed ALBUTEROL SULFATE 61039881973 Active Shun Arellano LPN Active DEPO-TESTOSTERONE 200 MG/ML INTRAMUSCULAR SOLUTION as directed TESTOSTERONE CYPIONATE 70730258995 No Longer Active Baltazar Childers MD Active LIPITOR 20 MG ORAL TABLET Take one by mouth daily in evening ATORVASTATIN CALCIUM 11416637451 No Longer Active Baltazar Childers MD Active CRESTOR 10 MG ORAL TABLET 1 by mouth every day ROSUVASTATIN CALCIUM 53939228577 No Longer Active Baltazar Childers MD Active PHENTERMINE HCL 37.5 MG ORAL TABLET Take one by mouth daily PHENTERMINE HCL 63323598293 No Longer Active Baltazar Childers MD Ac tive TIZANIDINE HCL 4 MG ORAL TABLET 1 daily as needed for muscle spa sm TIZANIDINE HCL 87651550177 No Longer Active Dawna Salazar RN Active [id number]-[id number] 50-325-40 MG ORAL TABLET 1 fo ur times a day as needed for heacache EEZYYOPBYA-YCXO-[id number] 50526948951 Active Beth Bruno, RMA Active SUMATRIPTAN SUCCINATE 100 MG ORAL TABLET 1 tablet by m outh at onset of migraine as needed SUMATRIPTAN SUCCINATE 30490086418 Active Beth KENDALL Laura Active LORATADINE 10 MG ORAL TABLET Take one by mouth daily LORATADINE 64739352144 Active Baltazar Childers MD Active OMEPRAZOLE 20 MG ORAL CAPSULE DELAYED RELEASE Take one by mouth jostin ly OMEPRAZOLE 41569509446 Active Baltazar Childers MD Active HYDROXYZINE HCL 25 MG ORAL TABLET Take one by mouth daily HYDROXYZINE HCL 05131307725 Active Baltazar Childers MD Active ALPRAZOLAM 1 MG ORAL TABLET 1 [facility] AL[facility]AM 19550094147 Active Baltazar Childers MD Active METFORMIN HCL 1000 MG ORAL TABLET Take one by mouth twice daily METFORMIN HCL 75287761977 Active Baltazar Childers MD Active TIZANIDINE HCL 4 MG ORAL TABLET 1 daily as needed for muscle spa sm TIZANIDINE HCL 4 MG ORAL TABLET 086964 TIZANIDINE HCL Inactive PHENTERMINE HCL 37.5 MG ORAL TABLET Take one by mouth daily PHENTERMINE HCL 37.5 MG ORAL TABLET 475074 PHENTERMINE HCL Inac tive CRESTOR 10 MG ORAL TABLET 1 by mouth every day CRESTOR 10 MG ORAL TABLET 323907 ROSUVASTATIN CALCIUM Inactive LIPITOR 20 MG ORAL TABLET Take one by mouth daily in evening LIPITOR 20 MG ORAL TABLET 681294 ATORVASTATIN CALCIUM Inactive DEPO-TESTOSTERONE 200 MG/ML INTRAMUSCULAR SOLUTION as directed DEPO-TESTOSTERONE 200 MG/ML INTRAMUSCULAR SOLUTION 5749866 RUFINO TOSTERONE CYPIONATE Inactive NAPROXEN 500 MG ORAL TABLET 1 tablet by mouth twice daily NAPROXEN 500 MG ORAL TABLET 773443 NAPROXEN Inactive GABAPENTIN 300 MG ORAL CAPSULE 1 po qd x 2 days, then 1 po BID x 2 days, then 1 po TID GABAPENTIN 300 MG ORAL CAPSULE 239849 GABAP ENTIN Inactive ONETOUCH ULTRA BLUE IN VITRO STRIP Test twice a day 07/11/11 ONETOUCH ULTRA BLUE IN VITRO STRIP GLUCOSE BLOOD Inact amie NAPROXEN SODIUM 220 MG ORAL TABLET 1 three times a day as needed NAPROXEN SODIUM 220 MG ORAL TABLET 384053 NAPROXEN SODI UM Inactive TOUJEO SOLOSTAR 300 UNIT/ML SUBCUTANEOUS SOLUTION PEN- INJECTOR 10 units SC daily TOUJEO SOLOSTAR 300 UNIT/ML SUBCUTANEOUS SOLUTION PEN-INJECTOR INSULIN GLARGINE Inactive SUCRALFATE 1 GM ORAL TABLET 1 four times a day to coat the stoma ch SUCRALFATE 1 GM ORAL TABLET 078179 SUCRALFATE Inac tive GABAPENTIN 300 MG ORAL CAPSULE 1 three times a day 201 12/03/26 GABAPENTIN 300 MG ORAL CAPSULE 101505 GABAPENTIN Inactive TRAMADOL HCL 50 MG ORAL TABLET 1 twice a day as needed for pain TRAMADOL HCL 50 MG ORAL TABLET 663783 TRAMADOL HCL I nactive ZITHROMAX Z-ISAIAS 250 MG ORAL TABLET Take two tablets to day and then 1 tablet daily for 4 days ZITHROMAX Z-ISAIAS 250 MG ORAL TAB LET 655345 AZITHROMYCIN Inactive Immunizations Vaccine Administration Date Value Standard Floyd cription influenza immunization (Flu Vax) has been administered 05/11 Done according to patient influenza virus vaccine, unspecified for mulation pneumococcal immunization administered Pneumovax 23 [CVX33] pneumococcal polysaccharide vaccine, 23 valent Seasonal influenza vaccine, injectable, containing preservative, for > 3 years old (Afluria, FluLaval, Fluzone, Fluvirin, Fluarix, Agriflu(>= 18 yo)) Fluzone (>3 yrs.) [[id number]] Influenza, seasonal, inject able Seasonal influenza vaccine, injectable, containing preservative, for > 3 years old (Afluria, FluLaval, Fluzone, Fluvirin, Fluarix, Agriflu(>= 18 yo)) Fluzone (>3 yrs.) [[id number]] Influenza, seasonal, inject able Vital Signs Date [...] - Chem istry sodium, serum 139 mmol/L 723-409 8740/06/26 potassium, serum 4.8 mmol/L 3.5-5.2 chloride, serum [...] 0.40 mg/dL 0.00-1.00 cholesterol, serum 218 mg/dL 515-976 9862/12/18 triglyceride, serum, fasting 357 mg/dL 30-200 HDL cholesterol, serum 49 mg/dL 32-60 LDL cholesterol, serum 103.00 mg/dL 5.00-130.00 hemoglobin A1C, blood, as % of total hemoglobin 8.5 % 4.3-6.0 sodium, serum 142 mmol/L 785-311 3597/12/18 carbon dioxide, venous blood 32.5 mmol/L 21.0-32 [...] Metabolic Panel, Cholesterol, Triglycerid ... - Hematology hemoglobin, blood 12.0 g/dL 12.0-16.0 hematocrit, blood 38.0 % 37.0-47.0 mean corpuscular volume, RBC 93 fL 80-97 leukocyte count, blood 6.8 10^3/MM^3 10*3/mm3 4.6-10.2 erythrocyte (RBC) count 4.09 10^6/MM^3 10*6/mm3 3.80-5.8 0 mean corpuscular hemoglobin, RBC 29.4 pg 27. [...] negative Encounters Code Encounter Date Provider Facility CPT-86266 [id number] Vst-Est Level IV 15:12:52 LINE REPAIRER TOWER Charlie Childers MD [facility] CPT-56974 [id number] Vst-Est Level IV 15:30:55 LINE REPAIRER TOWER Charlie Childers MD [facility]-97907 07451-Xdg Vst-Est Level IV 13:49:06 C DT Ann Martinez [facility] CPT-96942 Level 4 Est. Patient 17:26:08 CDT Ann trujillo [facility] CPT-44441 79119-Wbs Vst-Est Level V 14:26:27 CDT Aneudy Childers MD [facility] CPT-47490 Level 4 Est. Patient 17:05:37 CDT Baltazar Childers MD [facility] CPT-33243 Level 4 Est. Patient 16:21:19 LINE REPAIRER TOWER Baltazar Childers MD [facility] CPT-26150 Level 4 Est. Patient 12:25:11 CDT Baltazar Childers MD [facility] CPT-05530 Level 4 Est. Patient 14:22:31 CDT Baltazar Childers MD [facility] CPT-69171 Level 4 Est. Patient 15:44:38 CDT Shonna Parker APRN [facility] CPT-30041 Level 4 Est. Patient 11:34:17 CDT Baltazar Childers MD [facility] CPT-02511 Level 3 Est. Patient 16:40:40 CDT Baltazar Childers MD [facility] CPT-14805 Level 4 Est. Patient 10:41:24 CDT Baltazar Childers MD [facility] CPT-97028 Level 4 Est. Patient 16:01:48 CDT Baltazar Childers MD [facility] CPT-52715 Level 4 Est. Patient 16:54:07 LINE REPAIRER TOWER Baltazar Childers MD [facility] CPT-32820 Level 4 Est. Patient 15:42:12 CDT Baltazar Childers MD [facility] CPT-87654 Level 4 Est. Patient 11:29:55 CDT Baltazar Childers MD [facility] CPT-90347 Level 4 Est. Patient 14:15:19 CDT Baltazar Childers MD [facility] CPT-15069 Level 4 Est. Patient 12:20:13 CDT Baltazar Childers MD [facility] CPT-82707 Level 4 Est. Patient 14:52:45 LINE REPAIRER TOWER Baltazar Childers MD [facility] CPT-39974 Level 4 Est. Patient 14:18:34 LINE REPAIRER TOWER Baltazar Childers MD [facility] CPT-88991 Level 4 Est. Patient 15:18:29 CDT Baltazar Childers MD [facility] CPT-02765 Level 3 Est. Patient 12:45:34 CDT Baltazar Childers MD [facility] CPT-52854 Level 3 Est. Patient 10:10:11 CDT Baltazar Childers MD [facility] CPT-31935 Level 3 Est. Patient 14:07:50 CDT Baltazar Childers MD [facility] CPT-02258 Level 4 Est. Patient 12:26:10 LINE REPAIRER TOWER Baltazar Childers MD [facility] CPT-13907 Level 4 Est. Patient 14:45:38 CDT Baltazar Childers MD [facility] CPT-66155 Level 4 New Patient 12:30:48 CDT Baltazar hinton MD [facility] Procedures Code Procedure Name Date Entry Date Standard Desc ription CPT-000 Give Appropriate Flu Vaccine 12:25:14 CDT 2 CPT-87621 First Vx - Ix admin via ID I M or jet injects without counseling by physician 13:08:59 CDT CPT-89070 Fluzone Quadrivalent Intramuscular Suspe nsion 0.5 ML 13:08:59 CDT CPT-06194 Venipuncture Draw Fee 12:04:12 CDT CPT-38970 Lipid - LAB USE ONLY 17:39:15 LINE REPAIRER TOWER 9 CPT-88080 HGBA1C - LAB USE ONLY 17:39:15 LINE REPAIRER TOWER CPT-63617 CMP - LAB USE ONLY 17:39:14 LINE REPAIRER TOWER CPT-03928 Venipuncture Draw Fee 17:39:14 LINE REPAIRER TOWER CPT-48022 First Vx - Ix admin via ID I M or jet injects without counseling by physician 16:55:17 LINE REPAIRER TOWER CPT-24732 Fluzone Quadrivalent Intramuscular Suspe nsion 0.5 ML 16:55:17 LINE REPAIRER TOWER CPT-12989 Renal Panel - LAB USE ONLY 17:39:20 CDT 201 10/31/07 CPT-19386 CBC - LAB USE ONLY 17:39:20 CDT CPT-70913 Venipuncture Draw Fee 17:39:20 CDT CPT-56133 Venipuncture Draw Fee 14:33:30 CDT CPT-15460 Renal Panel - LAB USE ONLY 14:33:30 CDT 201 10/31/07 CPT-12670 CBC - LAB USE ONLY 14:33:29 CDT CPT-80209 Venipuncture Draw Fee 14:50:21 LINE REPAIRER TOWER CPT-14910 Immunization Single Admin 17:35:35 CDT 2014 CPT-59960 Fluzone Quadrivalent preservative free ( >=3yrs.) 17:35:35 CDT CPT-70428 Venipuncture Draw Fee 12:10:27 LINE REPAIRER TOWER CPT-73014 Fluzone Quadrivalent Intramuscular Suspe nsion 0.5 ML 10:49:13 CDT CPT-98736 First Vx Component - Ix admi n via ID IM or jet inj without physician counseling 15:17:19 LINE REPAIRER TOWER CPT-57732 Pneumovax 23 15:17:19 LINE REPAIRER TOWER CPT-55272 Pneumovax 14:52:45 LINE REPAIRER TOWER CPT-77535 Venipuncture Draw Fee 14:06:30 LINE REPAIRER TOWER CPT-000 Give Appropriate Flu Vaccine 14:18:34 LINE REPAIRER TOWER 2 CPT-76431 Administration single or combination vac cine inc oral 14:46:00 LINE REPAIRER TOWER CPT-45335 Influenza split virus > age 3 14:46:00 LINE REPAIRER TOWER CPT-OV Office Visit 19:13:16 CDT CPT-80348 Zostavax 18:41:56 CDT CPT-80646 Administration single or combination vac cine inc oral 12:56:39 CDT CPT-29485 Zoster Vaccine (Zostavax) 12:56:39 CDT 2012 CPT-05473 Venipuncture Draw Fee 10:58:57 CDT CPT-61297 Sono pelvis non OB uterus ovaries cervix 17:45:04 CDT CPT-84473 Sono retroperitoneal complete kidneys an d bladder 17:14:36 CDT CPT-OV Office Visit 14:59:38 LINE REPAIRER TOWER CPT-J1070 Depo Testosterone 100 mg 14:50:13 CDT 03/05 CPT-12344 Abx/Therapy Injection 14:50:13 CDT CPT-99589 Administration single or combination vac cine inc oral 14:34:43 CDT CPT-77557 Influenza split virus > age 3 14:34:43 CDT CPT-J1070 Depo Testosterone 100 mg 17:37:13 CDT 01/11 CPT-98245 Abx/Therapy Injection 17:37:13 CDT CPT-11789 Venipuncture Draw Fee 16:30:13 CDT CPT-45295 Venipuncture Draw Fee 16:29:43 CDT CPT-J1070 Depo Testosterone 100 mg 14:45:38 CDT 01/11
--- OUTSIDE RECORDS SUMMARY | 2019-10-27 11:49 | XMS REPORT | Clinical Summary ---
Author Author Admin, Elba Lance Compring Address Unknown Phone Unavailable Allergies, Adverse Reactions, Alerts Allergy Name Reaction Description Start Date Severity Status Pr ovider ASPIRIN upset stomach Moderate Active Baltazar silverman MD PENICILLIN yeast infection Critical Active Baltazar Childers MD FISH Critical Active Baltaazr bynum MD CODEINE Critical Active Baltazar bynum [...] ronary atherosclerosis of unspecified type of vessel, enterprise or graft OTH NONSPC ABN FINDNG RAD&OTH [...] mellitus, type II, uncontrolled 250.02 Active Baltazar Cihlders MD Diabetes mellitus without me ntion of [...] INJECTOR 33 units SC daily INSULIN GLARGINE 38170067224 Active Baltazar Childers MD Active TRAMADOL HCL 50 MG ORAL TABLET 1 twice a day as needed for pain TRAMADOL HCL 84229496640 No Longer Active Baltazar Childers MD Active ROBAXIN 500 MG ORAL TABLET Take 1.5 (one and one half) tabs once daily METHOCARBAMOL 73622032338 Active Baltazar Childers MD Active SYNTHROID 112 MCG ORAL TABLET Take one tablet a day LEVOTHYROXINE SODIUM 12145178153 Active Baltazar Childers MD Active TRUE METRIX AIR GLUCOSE METER DEVICE Use as directed BLOOD GLUCOSE MONITORING SUPPL 17361186197 Active Baltazar Childers MD Activ e TRUE METRIX BLOOD GLUCOSE TEST IN VITRO STRIP test blood sug ar BID Dx: E11.65 GLUCOSE BLOOD 05385483325 Active KENDALL Juarez Active NORTRIPTYLINE HCL 50 MG ORAL CAPSULE 1 twice a day for neuropathy 2 NORTRIPTYLINE HCL 14873460779 Active Baltazar Childers MD Acti ve ASPIRIN 81 MG TBEC Take one (1) tablet by mouth daily ASPIRIN 60299101985 Active Baltazar Childers MD Active GABAPENTIN 300 MG ORAL CAPSULE 1 three times a day 201 12/03/26 GABAPENTIN 99078076885 No Longer Active Baltazar Childers MD Activ e LISINOPRIL 20 MG ORAL TABLET 1 tablet by mouth daily at night 2016 LISINOPRIL 29655749919 Active Baltazar Childers MD Active ZITHROMAX Z-ISAIAS 250 MG ORAL TABLET Take two tablets to day and then 1 tablet daily for 4 days AZITHROMYCIN 41714066903 No Longer A ctive Baltazar Childers MD Active AMLODIPINE BESYLATE 5 MG ORAL TABLET 1 tab daily for HTN AMLODIPINE BESYLATE 10031292538 Active Baltazar Childers MD Active GLIPIZIDE 10 MG ORAL TABLET take 2 tablets twice daily GLIPIZIDE 13498076404 Active Baltazar Childers MD Active SUCRALFATE 1 GM ORAL TABLET 1 four times a day to coat the stoma ch SUCRALFATE 15786481988 No Longer Active Baltazar Childers MD Active PEN NEEDLES 31G X 6 MM use 1 daily INSULIN PEN NE EDLE 17147061564 Active KENDALL Juarez Active CELINA PARIKH 300 UNIT/ML SUBCUTANEOUS SOLUTION PEN- INJECTOR 10 units SC daily INSULIN GLARGINE 64689703669 No Longer Active Rola ARGUETA Active NAPROXEN SODIUM 220 MG ORAL TABLET 1 three times a day as needed NAPROXEN SODIUM 97178320748 No Longer Active Baltazar Childers MD Active ATORVASTATIN CALCIUM 20 MG ORAL TABLET Take 1 tab daily ATORVASTATIN CALCIUM 33599839709 Active Baltazar Childers MD A ctive FUROSEMIDE 40 MG ORAL TABLET Take one by mouth daily FUROSEMIDE 61311021425 Active Baltazar Childers MD Active LISINOPRIL 20 MG ORAL TABLET Take one by mouth daily at bedtime LISINOPRIL 81715366546 No Longer Active Baltazar Childers MD Active ONETOUCH ULTRA BLUE IN VITRO STRIP Test twice a day 07/11/11 GLUCOSE BLOOD 28261236115 No Longer Active Baltazar Childers MD Acti ve TRUEPLUS LANCETS 33G Test twice a day LANCETS 3788891 5352 Active KENDALL Juarez Active TRUEDRAW LANCING DEVICE Test twice a day LANCET DEVICES 98090082852 Active Baltazar Childers MD Active TRUETRACK BLOOD GLUCOSE w/Device KIT Test twice a day BLOOD GLUCOSE MONITORING SUPPL 18779865262 Active Baltazar Childers MD Activ e HYDROCODONE-ACETAMINOPHEN 7.5-325 MG ORAL TABLET Take 1 tab every 6-8 hours PRN HYDROCODONE-ACETAMINOPHEN 28021084242 Active Baltazar Nickerson MD Active GABAPENTIN 300 MG ORAL CAPSULE 1 po qd x 2 days, then 1 po BID x 2 days, then 1 po TID GABAPENTIN 70305223766 No Longer Active Baltazar Childers MD Active NAPROXEN 500 MG ORAL TABLET 1 tablet by mouth twice daily NAPROXEN 63213902073 No Longer Active Baltazar Childers MD Active PROAIR HFA 108 (90 Base) MCG/ACT INHALATION AEROSOL SO LUTION 2 puffs four times a day as needed ALBUTEROL SULFATE 57361950615 Active Shun Arellano LPN Active DEPO-TESTOSTERONE 200 MG/ML INTRAMUSCULAR SOLUTION as directed TESTOSTERONE CYPIONATE 64508038899 No Longer Active Baltazar Childers MD Active LIPITOR 20 MG ORAL TABLET Take one by mouth daily in evening ATORVASTATIN CALCIUM 64000677224 No Longer Active Baltazar Childers MD Active CRESTOR 10 MG ORAL TABLET 1 by mouth every day ROSUVASTATIN CALCIUM 37569899736 No Longer Active Baltazar Childers MD Active PHENTERMINE HCL 37.5 MG ORAL TABLET Take one by mouth daily PHENTERMINE HCL 16443356465 No Longer Active Baltazar Childers MD Ac tive TIZANIDINE HCL 4 MG ORAL TABLET 1 daily as needed for muscle spa sm TIZANIDINE HCL 41399830089 No Longer Active Dawna Salazar RN Active [id number] 50-325-40 MG ORAL TABLET 1 fo ur times a day as needed for heacache [id number] 85546068503 Active Beth Carr, RMA Active SUMATRIPTAN SUCCINATE 100 MG ORAL TABLET 1 tablet by m outh at onset of migraine as needed SUMATRIPTAN SUCCINATE 10176211741 Active Beth Angel ronnieKENDALL Active LORATADINE 10 MG ORAL TABLET Take one by mouth daily LORATADINE 85298926536 Active Baltazar Childers MD Active OMEPRAZOLE 20 MG ORAL CAPSULE DELAYED RELEASE Take one by mouth jostin ly OMEPRAZOLE 65254164930 Active Baltazar Childers MD Active HYDROXYZINE HCL 25 MG ORAL TABLET Take one by mouth daily HYDROXYZINE HCL 00647288765 Active Baltazar Childers MD Active ALPRAZOLAM 1 MG ORAL TABLET 1 tablet by mouth daily at bedti id for restless leg ALPRAZOLAM 64186744042 Active Baltazar Childers MD Active METFORMIN HCL 1000 MG ORAL TABLET Take one by mouth twice daily METFORMIN HCL 58282031540 Active Baltazar Childers MD Active NAPROXEN 500 MG ORAL TABLET 1 tablet by mouth twice daily NAPROXEN 500 MG ORAL TABLET 402952 NAPROXEN Inactive PHENTERMINE HCL 37.5 MG ORAL TABLET Take one by mouth daily PHENTERMINE HCL 37.5 MG ORAL TABLET 218575 PHENTERMINE HCL Inac tive SUCRALFATE 1 GM ORAL TABLET 1 four times a day to coat the stoma ch SUCRALFATE 1 GM ORAL TABLET 026617 SUCRALFATE Inac tive NAPROXEN SODIUM 220 MG ORAL TABLET 1 three times a day as needed NAPROXEN SODIUM 220 MG ORAL TABLET 774218 NAPROXEN SODI UM Inactive TRAMADOL HCL 50 MG ORAL TABLET 1 twice a day as needed for pain TRAMADOL HCL 50 MG ORAL TABLET 193360 TRAMADOL HCL I nactive TIZANIDINE HCL 4 MG ORAL TABLET 1 daily as needed for muscle spa sm TIZANIDINE HCL 4 MG ORAL TABLET 402750 TIZANIDINE HCL Inactive GABAPENTIN 300 MG ORAL CAPSULE 1 po qd x 2 days, then 1 po BID x 2 days, then 1 po TID GABAPENTIN 300 MG ORAL CAPSULE 893178 GABAP ENTIN Inactive GABAPENTIN 300 MG ORAL CAPSULE 1 three times a day 201 12/03/26 GABAPENTIN 300 MG ORAL CAPSULE 853668 GABAPENTIN Inactive LIPITOR 20 MG ORAL TABLET Take one by mouth daily in evening LIPITOR 20 MG ORAL TABLET 781374 ATORVASTATIN CALCIUM Inactive ONETOUCH ULTRA BLUE IN VITRO STRIP Test twice a day 07/11/11 ONETOUCH ULTRA BLUE IN VITRO STRIP GLUCOSE BLOOD Inact amie ZITHROMAX Z-ISAIAS 250 MG ORAL TABLET Take two tablets to day and then 1 tablet daily for 4 days ZITHROMAX Z-ISAIAS 250 MG ORAL TAB LET 895122 AZITHROMYCIN Inactive CRESTOR 10 MG ORAL TABLET 1 by mouth every day CRESTOR 10 MG ORAL TABLET 817536 ROSUVASTATIN CALCIUM Inactive DEPO-TESTOSTERONE 200 MG/ML INTRAMUSCULAR SOLUTION as directed DEPO-TESTOSTERONE 200 MG/ML INTRAMUSCULAR SOLUTION 7906859 RUFINO TOSTERONE CYPIONATE Inactive TOUJEO SOLOSTAR 300 [...] Fluarix, Agriflu(>= 18 yo)) Fluzone (>3 yrs.) [XRF495] Influenza, seasonal, inject able Seasonal influenza vaccine, injectable, containing preservative, for > 3 years old (Afluria, FluLaval, Fluzone, Fluvirin, Fluarix, Agriflu(>= 18 yo)) Fluzone (>3 yrs.) [[id number]] Influenza, seasonal, inject able Vital Signs Date [...] - Chem istry sodium, serum 139 mmol/L 620-952 9448/06/26 potassium, serum 4.8 mmol/L 3.5-5.2 chloride, serum [...] 0.40 mg/dL 0.00-1.00 cholesterol, serum 218 mg/dL 890-889 9709/12/18 triglyceride, serum, fasting 357 mg/dL 30-200 HDL cholesterol, serum 49 mg/dL 32-60 LDL cholesterol, serum 103.00 mg/dL 5.00-130.00 sodium, serum 142 mmol/L 498-504 2810/12/18 carbon dioxide, venous blood 32.5 mmol/L 21.0-32 [...] negative Encounters Code Encounter Date Provider Facility CPT-37062 [id number] Vst-Est Level IV 15:12:52 [employer] Charlie Childers MD [facility] CPT-98635 [id number] Vst-Est Level IV 15:30:55 [employer] Charlie Childers MD [facility]-74158 [id number] Vst-Est Level IV 13:49:06 C DT Ann Martinez [facility] CPT-53396 Level 4 Est. Patient 17:26:08 CDT Ann trujillo [facility] CPT-34378 [id number] Vst-Est Level V 14:26:27 CDT Aneudy Childers MD [facility] CPT-44883 Level 4 Est. Patient 17:05:37 CDT Baltazar Childers MD [facility] CPT-01326 Level 4 Est. Patient 16:21:19 [employer] Baltazar Childers MD [facility] CPT-42658 Level 4 Est. Patient 12:25:11 CDT Baltazar Childers MD [facility] CPT-06441 Level 4 Est. Patient 14:22:31 CDT Baltazar Childers MD [facility] CPT-96203 Level 4 Est. Patient 15:44:38 CDT Shonna Parker APRN [facility] CPT-52063 Level 4 Est. Patient 11:34:17 CDT Baltazar Childers MD [facility] CPT-10557 Level 3 Est. Patient 16:40:40 CDT Baltazar Childers MD [facility] CPT-41805 Level 4 Est. Patient 10:41:24 CDT Baltazar Childers MD [facility] CPT-45207 Level 4 Est. Patient 16:01:48 CDT Baltazar Childers MD [facility] CPT-59040 Level 4 Est. Patient 16:54:07 [employer] Baltazar Childers MD [facility] CPT-87965 Level 4 Est. Patient 15:42:12 CDT Baltazar Childers MD [facility] CPT-19685 Level 4 Est. Patient 11:29:55 CDT Baltazar Childers MD [facility] CPT-97686 Level 4 Est. Patient 14:15:19 CDT Baltazar Childers MD [facility] CPT-04841 Level 4 Est. Patient 12:20:13 CDT Baltazar Childers MD [facility] CPT-29090 Level 4 Est. Patient 14:52:45 [employer] Baltazar Childers MD [facility] CPT-82263 Level 4 Est. Patient 14:18:34 [employer] Baltazar Childers MD [facility] CPT-87978 Level 4 Est. Patient 15:18:29 CDT Baltazar Childers MD [facility] CPT-80930 Level 3 Est. Patient 12:45:34 CDT Baltazar Childers MD [facility] CPT-09540 Level 3 Est. Patient 10:10:11 CDT Baltazar Childers MD [facility] CPT-07099 Level 3 Est. Patient 14:07:50 CDT Baltazar Childers MD [facility] CPT-47472 Level 4 Est. Patient 12:26:10 [employer] Baltazar Childers MD [facility] CPT-04311 Level 4 Est. Patient 14:45:38 CDT Baltazar Childers MD [facility] CPT-66059 Level 4 New Patient 12:30:48 CDT Baltazar hinton MD [facility] Procedures Code Procedure Name Date Entry Date Standard Desc ription CPT-000 Give Appropriate Flu Vaccine 12:25:14 CDT 2 CPT-28581 First Vx - Ix admin via ID I M or jet injects without counseling by physician 13:08:59 CDT CPT-04464 Fluzone Quadrivalent Intramuscular Suspe nsion 0.5 ML 13:08:59 CDT CPT-16771 Venipuncture Draw Fee 12:04:12 CDT CPT-50852 Lipid - LAB USE ONLY 17:39:15 [employer] 9 CPT-46475 HGBA1C - LAB USE ONLY 17:39:15 [employer] CPT-91008 CMP - LAB USE ONLY 17:39:14 [employer] CPT-59647 Venipuncture Draw Fee 17:39:14 [employer] CPT-27366 First Vx - Ix admin via ID I M or jet injects without counseling by physician 16:55:17 [employer] CPT-12682 Fluzone Quadrivalent Intramuscular Suspe nsion 0.5 ML 16:55:17 [employer] CPT-62029 Renal Panel - LAB USE ONLY 17:39:20 CDT 201 10/31/07 CPT-85707 CBC - LAB USE ONLY 17:39:20 CDT CPT-46187 Venipuncture Draw Fee 17:39:20 CDT CPT-81499 Venipuncture Draw Fee 14:33:30 CDT CPT-80439 Renal Panel - LAB USE ONLY 14:33:30 CDT 201 10/31/07 CPT-71584 CBC - LAB USE ONLY 14:33:29 CDT CPT-97280 Venipuncture Draw Fee 14:50:21 [employer] CPT-88293 Immunization Single Admin 17:35:35 CDT 2014 CPT-65180 Fluzone Quadrivalent preservative free ( >=3yrs.) 17:35:35 CDT CPT-64078 Venipuncture Draw Fee 12:10:27 [employer] CPT-49040 Fluzone Quadrivalent Intramuscular Suspe nsion 0.5 ML 10:49:13 CDT CPT-51867 First Vx Component - Ix admi n via ID IM or jet inj without physician counseling 15:17:19 [employer] CPT-85144 Pneumovax 23 15:17:19 [employer] CPT-19440 Pneumovax 14:52:45 [employer] CPT-11419 Venipuncture Draw Fee 14:06:30 [employer] CPT-000 Give Appropriate Flu Vaccine 14:18:34 [employer] 2 CPT-47187 Administration single or combination vac cine inc oral 14:46:00 [employer] CPT-89909 Influenza split virus > age 3 14:46:00 [employer] CPT-OV Office Visit 19:13:16 CDT CPT-14030 Zostavax 18:41:56 CDT CPT-50179 Administration single or combination vac cine inc oral 12:56:39 CDT CPT-55808 Zoster Vaccine (Zostavax) 12:56:39 CDT 2012 CPT-47509 Venipuncture Draw Fee 10:58:57 CDT CPT-43946 Sono pelvis non OB uterus ovaries cervix 17:45:04 CDT CPT-86307 Sono retroperitoneal complete kidneys an d bladder 17:14:36 CDT CPT-OV Office Visit 14:59:38 [employer] CPT-J1070 Depo Testosterone 100 mg 14:50:13 CDT 03/05 CPT-46765 Abx/Therapy Injection 14:50:13 CDT CPT-08443 Administration single or combination vac cine inc oral 14:34:43 CDT CPT-55514 Influenza split virus > age 3 14:34:43 CDT CPT-J1070 Depo Testosterone 100 mg 17:37:13 CDT 01/11 CPT-49882 Abx/Therapy Injection 17:37:13 CDT CPT-50069 Venipuncture Draw Fee 16:30:13 CDT CPT-11413 Venipuncture Draw Fee 16:29:43 CDT CPT-J1070 Depo Testosterone 100 mg 14:45:38 CDT 01/11
[2019-10-27] MEDS ORDERED: NS IV 500 ML 500 ML ONE (11:50)
--- OUTSIDE RECORDS SUMMARY | 2019-10-27 11:50 | XMS REPORT | Clinical Summary ---
Author Author Admin, Elba Lance flexReceipts Address Unknown Phone Unavailable Allergies, Adverse Reactions, [...] ronary atherosclerosis of unspecified type of vessel, [place] or graft OTH NONSPC ABN FINDNG RAD&OTH [...] Tucker LPN Unspecified hypothyroidism Pharyngitis 462 Resolved Baltazra Childers MD Acute pharyngitis BMI 37-37.9 adult [...] INJECTOR 33 units SC daily INSULIN GLARGINE 29483116179 Active Baltazar Childers MD Active TRAMADOL HCL 50 MG ORAL TABLET 1 twice a day as needed for pain TRAMADOL HCL 52775363131 No Longer Active Baltazar Childers MD Active ROBAXIN 500 MG ORAL TABLET Take 1.5 (one and one half) tabs once daily METHOCARBAMOL 17117878449 Active Baltazar Childers MD Active SYNTHROID 112 MCG ORAL TABLET Take one tablet a day LEVOTHYROXINE SODIUM 67579008702 Active Baltazar Childers MD Active TRUE METRIX AIR GLUCOSE METER DEVICE Use as directed BLOOD GLUCOSE MONITORING SUPPL 13270711809 Active Baltazar Childers MD Activ e TRUE METRIX BLOOD GLUCOSE TEST IN VITRO STRIP test blood sug ar BID Dx: E11.65 GLUCOSE BLOOD 21848734371 Active KENDALL Juarez Active NORTRIPTYLINE HCL 50 MG ORAL CAPSULE 1 twice a day for neuropathy 2 NORTRIPTYLINE HCL 16314758709 Active Baltazar Childers MD Acti ve ASPIRIN 81 MG TBEC Take one (1) tablet by mouth daily ASPIRIN 83561611637 Active Baltazar Childers MD Active GABAPENTIN 300 MG ORAL CAPSULE 1 three times a day 201 12/03/26 GABAPENTIN 45689078049 No Longer Active Baltazar Childers MD Activ e LISINOPRIL 20 MG ORAL TABLET 1 tablet by mouth daily at night 2016 LISINOPRIL 11954363519 Active Baltazar Childers MD Active ZITHROMAX Z-ISAIAS 250 MG ORAL TABLET Take two tablets to day and then 1 tablet daily for 4 days AZITHROMYCIN 56955892907 No Longer A ctive Baltazar Childers MD Active AMLODIPINE BESYLATE 5 MG ORAL TABLET 1 tab daily for HTN AMLODIPINE BESYLATE 23669604235 Active Baltazar Childers MD Active GLIPIZIDE 10 MG ORAL TABLET take 2 tablets twice daily GLIPIZIDE 34464036723 Active Baltazar Childers MD Active SUCRALFATE 1 GM ORAL TABLET 1 four times a day to coat the stoma ch SUCRALFATE 79942831229 No Longer Active Baltazar Childers MD Active PEN NEEDLES 31G X 6 MM use 1 daily INSULIN PEN NE EDLE 80351649933 Active KENDALL Juarez Active CELINA PARIKH 300 UNIT/ML SUBCUTANEOUS SOLUTION PEN- INJECTOR 10 units SC daily INSULIN GLARGINE 68454074858 No Longer Active Rola ARGUETA Active NAPROXEN SODIUM 220 MG ORAL TABLET 1 three times a day as needed NAPROXEN SODIUM 67791277828 No Longer Active Baltazar Childers MD Active ATORVASTATIN CALCIUM 20 MG ORAL TABLET Take 1 tab daily ATORVASTATIN CALCIUM 86688110089 Active Baltazar Childers MD A ctive FUROSEMIDE 40 MG ORAL TABLET Take one by mouth daily FUROSEMIDE 17207713761 Active Baltazar Childers MD Active LISINOPRIL 20 MG ORAL TABLET Take one by mouth daily at bedtime LISINOPRIL 22260036526 No Longer Active Baltazar Childers MD Active ONETOUCH ULTRA BLUE IN VITRO STRIP Test twice a day 07/11/11 GLUCOSE BLOOD 79008792949 No Longer Active Baltazar Childers MD Acti ve TRUEPLUS LANCETS 33G Test twice a day LANCETS 8471605 4474 Active KENDALL Juarez Active TRUEDRAW LANCING DEVICE Test twice a day LANCET DEVICES 98003645984 Active Baltazar Childers MD Active TRUETRACK BLOOD GLUCOSE w/Device KIT Test twice a day BLOOD GLUCOSE MONITORING SUPPL 34914276855 Active Baltazar Childers MD Activ e HYDROCODONE-ACETAMINOPHEN 7.5-325 MG ORAL TABLET Take 1 tab every 6-8 hours PRN HYDROCODONE-ACETAMINOPHEN 99035680686 Active Baltazar Nickerson MD Active GABAPENTIN 300 MG ORAL CAPSULE 1 po qd x 2 days, then 1 po BID x 2 days, then 1 po TID GABAPENTIN 09948696469 No Longer Active Baltazar Childers MD Active NAPROXEN 500 MG ORAL TABLET 1 tablet by mouth twice daily NAPROXEN 22875207582 No Longer Active Baltazar Childers MD Active PROAIR HFA 108 (90 Base) MCG/ACT INHALATION AEROSOL SO LUTION 2 puffs four times a day as needed ALBUTEROL SULFATE 36813127619 Active Shun Arellano LPN Active DEPO-TESTOSTERONE 200 MG/ML INTRAMUSCULAR SOLUTION as directed TESTOSTERONE CYPIONATE 24009833157 No Longer Active Baltazar Childers MD Active LIPITOR 20 MG ORAL TABLET Take one by mouth daily in evening ATORVASTATIN CALCIUM 81895694351 No Longer Active Baltazar Childers MD Active CRESTOR 10 MG ORAL TABLET 1 by mouth every day ROSUVASTATIN CALCIUM 71119554934 No Longer Active Baltazar Childers MD Active PHENTERMINE HCL 37.5 MG ORAL TABLET Take one by mouth daily PHENTERMINE HCL 96159414068 No Longer Active Baltazar Childers MD Ac tive TIZANIDINE HCL 4 MG ORAL TABLET 1 daily as needed for muscle spa sm TIZANIDINE HCL 04196614605 No Longer Active Dawna Salazar RN Active [id number] 50-325-40 MG ORAL TABLET 1 fo ur times a day as needed for heacache [id number] 75126156957 Active Beth Carr, RMA Active SUMATRIPTAN SUCCINATE 100 MG ORAL TABLET 1 tablet by m outh at onset of migraine as needed SUMATRIPTAN SUCCINATE 98640064085 Active Beth Angel ronnieKENDALL Active LORATADINE 10 MG ORAL TABLET Take one by mouth daily LORATADINE 34946639251 Active Baltazar Childers MD Active OMEPRAZOLE 20 MG ORAL CAPSULE DELAYED RELEASE Take one by mouth jostin ly OMEPRAZOLE 74375194522 Active Baltazar Childers MD Active HYDROXYZINE HCL 25 MG ORAL TABLET Take one by mouth daily HYDROXYZINE HCL 41858416941 Active Baltazar Childers MD Active ALPRAZOLAM 1 MG ORAL TABLET 1 tablet by mouth daily at bedti wv for restless leg ALPRAZOLAM 47716655488 Active Baltazar Childers MD Active METFORMIN HCL 1000 MG ORAL TABLET Take one by mouth twice daily METFORMIN HCL 42789151562 Active Baltazar Childers MD Active NAPROXEN 500 MG ORAL TABLET 1 tablet by mouth twice daily NAPROXEN 500 MG ORAL TABLET 095659 NAPROXEN Inactive PHENTERMINE HCL 37.5 MG ORAL TABLET Take one by mouth daily PHENTERMINE HCL 37.5 MG ORAL TABLET 763179 PHENTERMINE HCL Inac tive SUCRALFATE 1 GM ORAL TABLET 1 four times a day to coat the stoma ch SUCRALFATE 1 GM ORAL TABLET 174421 SUCRALFATE Inac tive NAPROXEN SODIUM 220 MG ORAL TABLET 1 three times a day as needed NAPROXEN SODIUM 220 MG ORAL TABLET 233400 NAPROXEN SODI UM Inactive TRAMADOL HCL 50 MG ORAL TABLET 1 twice a day as needed for pain TRAMADOL HCL 50 MG ORAL TABLET 134324 TRAMADOL HCL I nactive TIZANIDINE HCL 4 MG ORAL TABLET 1 daily as needed for muscle spa sm TIZANIDINE HCL 4 MG ORAL TABLET 618548 TIZANIDINE HCL Inactive GABAPENTIN 300 MG ORAL CAPSULE 1 po qd x 2 days, then 1 po BID x 2 days, then 1 po TID GABAPENTIN 300 MG ORAL CAPSULE 741693 GABAP ENTIN Inactive GABAPENTIN 300 MG ORAL CAPSULE 1 three times a day 201 12/03/26 GABAPENTIN 300 MG ORAL CAPSULE 388794 GABAPENTIN Inactive LIPITOR 20 MG ORAL TABLET Take one by mouth daily in evening LIPITOR 20 MG ORAL TABLET 823636 ATORVASTATIN CALCIUM Inactive ONETOUCH ULTRA BLUE IN VITRO STRIP Test twice a day 07/11/11 ONETOUCH ULTRA BLUE IN VITRO STRIP GLUCOSE BLOOD Inact amie ZITHROMAX Z-ISAIAS 250 MG ORAL TABLET Take two tablets to day and then 1 tablet daily for 4 days ZITHROMAX Z-ISAIAS 250 MG ORAL TAB LET 525234 AZITHROMYCIN Inactive CRESTOR 10 MG ORAL TABLET 1 by mouth every day CRESTOR 10 MG ORAL TABLET 928113 ROSUVASTATIN CALCIUM Inactive DEPO-TESTOSTERONE 200 MG/ML INTRAMUSCULAR SOLUTION as directed DEPO-TESTOSTERONE 200 MG/ML INTRAMUSCULAR SOLUTION 3361016 RUFINO TOSTERONE CYPIONATE Inactive TOUJEO SOLOSTAR 300 [...] Fluarix, Agriflu(>= 18 yo)) Fluzone (>3 yrs.) [[id number]] Influenza, seasonal, inject able Seasonal influenza vaccine, injectable, containing preservative, for > 3 years old (Afluria, FluLaval, Fluzone, Fluvirin, Fluarix, Agriflu(>= 18 yo)) Fluzone (>3 yrs.) [[id number]] Influenza, seasonal, inject able Vital Signs Date [...] - Chem istry sodium, serum 139 mmol/L 274-525 4015/06/26 potassium, serum 4.8 mmol/L 3.5-5.2 chloride, serum [...] 0.40 mg/dL 0.00-1.00 cholesterol, serum 218 mg/dL 083-944 6932/12/18 triglyceride, serum, fasting 357 mg/dL 30-200 HDL cholesterol, serum 49 mg/dL 32-60 LDL cholesterol, serum 103.00 mg/dL 5.00-130.00 sodium, serum 142 mmol/L 532-156 1333/12/18 carbon dioxide, venous blood 32.5 mmol/L 21.0-32 [...] negative Encounters Code Encounter Date Provider Facility CPT-66155 [id number] Vst-Est Level IV 15:12:52 SENIOR DIRECTOR Charlie Childers MD [facility] CPT-91973 [id number] Vst-Est Level IV 15:30:55 SENIOR DIRECTOR Charlie Childers MD [facility]-24987 [id number] Vst-Est Level IV 13:49:06 C DT Ann Martinez [facility] CPT-28654 Level 4 Est. Patient 17:26:08 CDT Ann trujillo [facility] CPT-82167 [id number] Vst-Est Level V 14:26:27 CDT Aneudy Childers MD [facility] CPT-06360 Level 4 Est. Patient 17:05:37 CDT Baltazar Childers MD [facility] CPT-92865 Level 4 Est. Patient 16:21:19 SENIOR DIRECTOR Baltazar Childers MD [facility] CPT-88570 Level 4 Est. Patient 12:25:11 CDT Baltazar Childers MD [facility] CPT-76255 Level 4 Est. Patient 14:22:31 CDT Baltazar Childers MD [facility] CPT-89111 Level 4 Est. Patient 15:44:38 CDT Shonna Parker APRN [facility] CPT-45239 Level 4 Est. Patient 11:34:17 CDT Baltazar Childers MD [facility] CPT-63065 Level 3 Est. Patient 16:40:40 CDT Baltazar Childers MD [facility] CPT-79254 Level 4 Est. Patient 10:41:24 CDT Baltazar Childers MD [facility] CPT-82657 Level 4 Est. Patient 16:01:48 CDT Baltazar Childers MD [facility] CPT-80870 Level 4 Est. Patient 16:54:07 SENIOR DIRECTOR Baltazar Childers MD [facility] CPT-07967 Level 4 Est. Patient 15:42:12 CDT Baltazar Childers MD [facility] CPT-28272 Level 4 Est. Patient 11:29:55 CDT Baltazar Childers MD [facility] CPT-65501 Level 4 Est. Patient 14:15:19 CDT Baltazar Childers MD [facility] CPT-48514 Level 4 Est. Patient 12:20:13 CDT Baltazar Childers MD [facility] CPT-64059 Level 4 Est. Patient 14:52:45 SENIOR DIRECTOR Baltazar Childers MD [facility] CPT-95289 Level 4 Est. Patient 14:18:34 SENIOR DIRECTOR Baltazar Childers MD [facility] CPT-80863 Level 4 Est. Patient 15:18:29 CDT Baltazar Childers MD [facility] CPT-24235 Level 3 Est. Patient 12:45:34 CDT Baltazar Childers MD [facility] CPT-66661 Level 3 Est. Patient 10:10:11 CDT Baltazar Childers MD [facility] CPT-09717 Level 3 Est. Patient 14:07:50 CDT Baltazar Childers MD [facility] CPT-76658 Level 4 Est. Patient 12:26:10 SENIOR DIRECTOR Baltazar Childers MD [facility] CPT-78776 Level 4 Est. Patient 14:45:38 CDT Baltazar Childers MD [facility] CPT-12834 Level 4 New Patient 12:30:48 CDT Baltazar hinton MD [facility] Procedures Code Procedure Name Date Entry Date Standard Desc ription CPT-000 Give Appropriate Flu Vaccine 12:25:14 CDT 2 CPT-85946 First Vx - Ix admin via ID I M or jet injects without counseling by physician 13:08:59 CDT CPT-65195 Fluzone Quadrivalent Intramuscular Suspe nsion 0.5 ML 13:08:59 CDT CPT-33975 Venipuncture Draw Fee 12:04:12 CDT CPT-49241 Lipid - LAB USE ONLY 17:39:15 SENIOR DIRECTOR 9 CPT-20723 HGBA1C - LAB USE ONLY 17:39:15 SENIOR DIRECTOR CPT-32189 CMP - LAB USE ONLY 17:39:14 SENIOR DIRECTOR CPT-66202 Venipuncture Draw Fee 17:39:14 SENIOR DIRECTOR CPT-12239 First Vx - Ix admin via ID I M or jet injects without counseling by physician 16:55:17 SENIOR DIRECTOR CPT-35272 Fluzone Quadrivalent Intramuscular Suspe nsion 0.5 ML 16:55:17 SENIOR DIRECTOR CPT-84790 Renal Panel - LAB USE ONLY 17:39:20 CDT 201 10/31/07 CPT-79223 CBC - LAB USE ONLY 17:39:20 CDT CPT-06871 Venipuncture Draw Fee 17:39:20 CDT CPT-46987 Venipuncture Draw Fee 14:33:30 CDT CPT-42346 Renal Panel - LAB USE ONLY 14:33:30 CDT 201 10/31/07 CPT-87491 CBC - LAB USE ONLY 14:33:29 CDT CPT-43382 Venipuncture Draw Fee 14:50:21 SENIOR DIRECTOR CPT-59081 Immunization Single Admin 17:35:35 CDT 2014 CPT-16408 Fluzone Quadrivalent preservative free ( >=3yrs.) 17:35:35 CDT CPT-28610 Venipuncture Draw Fee 12:10:27 SENIOR DIRECTOR CPT-42861 Fluzone Quadrivalent Intramuscular Suspe nsion 0.5 ML 10:49:13 CDT CPT-55896 First Vx Component - Ix admi n via ID IM or jet inj without physician counseling 15:17:19 SENIOR DIRECTOR CPT-11487 Pneumovax 23 15:17:19 SENIOR DIRECTOR CPT-35883 Pneumovax 14:52:45 SENIOR DIRECTOR CPT-10987 Venipuncture Draw Fee 14:06:30 SENIOR DIRECTOR CPT-000 Give Appropriate Flu Vaccine 14:18:34 SENIOR DIRECTOR 2 CPT-04173 Administration single or combination vac cine inc oral 14:46:00 SENIOR DIRECTOR CPT-68102 Influenza split virus > age 3 14:46:00 SENIOR DIRECTOR CPT-OV Office Visit 19:13:16 CDT CPT-74700 Zostavax 18:41:56 CDT CPT-38920 Administration single or combination vac cine inc oral 12:56:39 CDT CPT-71643 Zoster Vaccine (Zostavax) 12:56:39 CDT 2012 CPT-50994 Venipuncture Draw Fee 10:58:57 CDT CPT-67731 Sono pelvis non OB uterus ovaries cervix 17:45:04 CDT CPT-50997 Sono retroperitoneal complete kidneys an d bladder 17:14:36 CDT CPT-OV Office Visit 14:59:38 SENIOR DIRECTOR CPT-J1070 Depo Testosterone 100 mg 14:50:13 CDT 03/05 CPT-81482 Abx/Therapy Injection 14:50:13 CDT CPT-20060 Administration single or combination vac cine inc oral 14:34:43 CDT CPT-51942 Influenza split virus > age 3 14:34:43 CDT CPT-J1070 Depo Testosterone 100 mg 17:37:13 CDT 01/11 CPT-06339 Abx/Therapy Injection 17:37:13 CDT CPT-15655 Venipuncture Draw Fee 16:30:13 CDT CPT-92505 Venipuncture Draw Fee 16:29:43 CDT CPT-J1070 Depo Testosterone 100 mg 14:45:38 CDT 01/11
--- OUTSIDE RECORDS SUMMARY | 2019-10-27 11:50 | XMS REPORT | Clinical Summary ---
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 Baltazar Chliders MD Degeneration of lumbar or lumbosacral in [...] ronary atherosclerosis of unspecified type of vessel, [place] or graft OTH NONSPC ABN FINDNG [...] INJECTOR 33 units SC daily INSULIN GLARGINE 91838377692 Active Baltazar Childers MD Active TRAMADOL HCL 50 MG ORAL TABLET 1 twice a day as needed for pain TRAMADOL HCL 89981987749 No Longer Active Baltazar Childers MD Active ROBAXIN 500 MG ORAL TABLET Take 1.5 (one and one half) tabs once daily METHOCARBAMOL 87593019287 Active Baltazar Childers MD Active SYNTHROID 112 MCG ORAL TABLET Take one tablet a day LEVOTHYROXINE SODIUM 15184891334 Active Baltazar Childers MD Active TRUE METRIX AIR GLUCOSE METER DEVICE Use as directed BLOOD GLUCOSE MONITORING SUPPL 15893112631 Active Baltazar Childers MD Activ e TRUE METRIX BLOOD GLUCOSE TEST IN VITRO STRIP test blood sug ar BID Dx: E11.65 GLUCOSE BLOOD 87596500935 Active KENDALL Juarez Active NORTRIPTYLINE HCL 50 MG ORAL CAPSULE 1 twice a day for neuropathy 2 NORTRIPTYLINE HCL 37368965802 Active Baltazar Childers MD Acti ve ASPIRIN 81 MG TBEC Take one (1) tablet by mouth daily ASPIRIN 66048604304 Active Baltazar Childers MD Active GABAPENTIN 300 MG ORAL CAPSULE 1 three times a day 201 12/03/26 GABAPENTIN 50855068865 No Longer Active Baltazar Childers MD Activ e LISINOPRIL 20 MG ORAL TABLET 1 tablet by mouth daily at night 2016 LISINOPRIL 21278954583 Active Baltazar Childers MD Active ZITHROMAX Z-ISAIAS 250 MG ORAL TABLET Take two tablets to day and then 1 tablet daily for 4 days AZITHROMYCIN 60776897062 No Longer A ctive Baltazar Childers MD Active AMLODIPINE BESYLATE 5 MG ORAL TABLET 1 tab daily for HTN AMLODIPINE BESYLATE 55879697331 Active Baltazar Childers MD Active GLIPIZIDE 10 MG ORAL TABLET take 2 tablets twice daily GLIPIZIDE 59932187277 Active Baltazar Childers MD Active SUCRALFATE 1 GM ORAL TABLET 1 four times a day to coat the stoma ch SUCRALFATE 57609912049 No Longer Active Baltazar Childers MD Active PEN NEEDLES 31G X 6 MM use 1 daily INSULIN PEN NE EDLE 89179744145 Active KENDALL Juarez Active CELINA PARIKH 300 UNIT/ML SUBCUTANEOUS SOLUTION PEN- INJECTOR 10 units SC daily INSULIN GLARGINE 91329594481 No Longer Active Rola ARUGETA Active NAPROXEN SODIUM 220 MG ORAL TABLET 1 three times a day as needed NAPROXEN SODIUM 32566412035 No Longer Active Baltazar Childers MD Active ATORVASTATIN CALCIUM 20 MG ORAL TABLET Take 1 tab daily ATORVASTATIN CALCIUM 75847458613 Active Baltazar Childers MD A ctive FUROSEMIDE 40 MG ORAL TABLET Take one by mouth daily FUROSEMIDE 96085053629 Active Baltazar Childers MD Active LISINOPRIL 20 MG ORAL TABLET Take one by mouth daily at bedtime LISINOPRIL 30125358567 No Longer Active Baltazar Childers MD Active ONETOUCH ULTRA BLUE IN VITRO STRIP Test twice a day 07/11/11 GLUCOSE BLOOD 51266919208 No Longer Active Baltazar Childers MD Acti ve TRUEPLUS LANCETS 33G Test twice a day LANCETS 8137705 3884 Active KENDALL Juarez Active TRUEDRAW LANCING DEVICE Test twice a day LANCET DEVICES 80257231387 Active Baltazar Childers MD Active TRUETRACK BLOOD GLUCOSE w/Device KIT Test twice a day BLOOD GLUCOSE MONITORING SUPPL 72882431368 Active Baltazar Childers MD Activ e HYDROCODONE-ACETAMINOPHEN 7.5-325 MG ORAL TABLET Take 1 tab every 6-8 hours PRN HYDROCODONE-ACETAMINOPHEN 77285281920 Active Baltazar Nickerson MD Active GABAPENTIN 300 MG ORAL CAPSULE 1 po qd x 2 days, then 1 po BID x 2 days, then 1 po TID GABAPENTIN 01746811150 No Longer Active Baltazar Childers MD Active NAPROXEN 500 MG ORAL TABLET 1 tablet by mouth twice daily NAPROXEN 32583201420 No Longer Active Baltazar Childers MD Active PROAIR HFA 108 (90 Base) MCG/ACT INHALATION AEROSOL SO LUTION 2 puffs four times a day as needed ALBUTEROL SULFATE 83827612208 Active Shun Arellano LPN Active DEPO-TESTOSTERONE 200 MG/ML INTRAMUSCULAR SOLUTION as directed TESTOSTERONE CYPIONATE 66718930538 No Longer Active Baltazar Childers MD Active LIPITOR 20 MG ORAL TABLET Take one by mouth daily in evening ATORVASTATIN CALCIUM 59258015015 No Longer Active Baltazar Childers MD Active CRESTOR 10 MG ORAL TABLET 1 by mouth every day ROSUVASTATIN CALCIUM 58265208896 No Longer Active Baltazar Childers MD Active PHENTERMINE HCL 37.5 MG ORAL TABLET Take one by mouth daily PHENTERMINE HCL 49314602862 No Longer Active Baltazar Childers MD Ac tive TIZANIDINE HCL 4 MG ORAL TABLET 1 daily as needed for muscle spa sm TIZANIDINE HCL 83051529146 No Longer Active Dawna Salazar RN Active [id number] 50-325-40 MG ORAL TABLET 1 fo ur times a day as needed for heacache [id number] 91452535481 Active Beth Carr, RMA Active SUMATRIPTAN SUCCINATE 100 MG ORAL TABLET 1 tablet by m outh at onset of migraine as needed SUMATRIPTAN SUCCINATE 67781559873 Active Beth Angel ronnieKENDALL Active LORATADINE 10 MG ORAL TABLET Take one by mouth daily LORATADINE 13436732122 Active Baltazar Childers MD Active OMEPRAZOLE 20 MG ORAL CAPSULE DELAYED RELEASE Take one by mouth jostin ly OMEPRAZOLE 47678298573 Active Baltazar Childers MD Active HYDROXYZINE HCL 25 MG ORAL TABLET Take one by mouth daily HYDROXYZINE HCL 31657945253 Active Baltazar Childers MD Active ALPRAZOLAM 1 MG ORAL TABLET 1 tablet by mouth daily at bedti [place] for restless leg ALPRAZOLAM 46395635002 Active Baltazar Childers MD Active METFORMIN HCL 1000 MG ORAL TABLET Take one by mouth twice daily METFORMIN HCL 35546527131 Active Baltazar Childers MD Active NAPROXEN 500 MG ORAL TABLET 1 tablet by mouth twice daily NAPROXEN 500 MG ORAL TABLET 011126 NAPROXEN Inactive PHENTERMINE HCL 37.5 MG ORAL TABLET Take one by mouth daily PHENTERMINE HCL 37.5 MG ORAL TABLET 584005 PHENTERMINE HCL Inac tive SUCRALFATE 1 GM ORAL TABLET 1 four times a day to coat the stoma ch SUCRALFATE 1 GM ORAL TABLET 296138 SUCRALFATE Inac tive NAPROXEN SODIUM 220 MG ORAL TABLET 1 three times a day as needed NAPROXEN SODIUM 220 MG ORAL TABLET 191997 NAPROXEN SODI UM Inactive TRAMADOL HCL 50 MG ORAL TABLET 1 twice a day as needed for pain TRAMADOL HCL 50 MG ORAL TABLET 885076 TRAMADOL HCL I nactive TIZANIDINE HCL 4 MG ORAL TABLET 1 daily as needed for muscle spa sm TIZANIDINE HCL 4 MG ORAL TABLET 088000 TIZANIDINE HCL Inactive GABAPENTIN 300 MG ORAL CAPSULE 1 po qd x 2 days, then 1 po BID x 2 days, then 1 po TID GABAPENTIN 300 MG ORAL CAPSULE 656717 GABAP ENTIN Inactive GABAPENTIN 300 MG ORAL CAPSULE 1 three times a day 201 12/03/26 GABAPENTIN 300 MG ORAL CAPSULE 454288 GABAPENTIN Inactive LIPITOR 20 MG ORAL TABLET Take one by mouth daily in evening LIPITOR 20 MG ORAL TABLET 355146 ATORVASTATIN CALCIUM Inactive ONETOUCH ULTRA BLUE IN VITRO STRIP Test twice a day 07/11/11 ONETOUCH ULTRA BLUE IN VITRO STRIP GLUCOSE BLOOD Inact amie ZITHROMAX Z-ISAIAS 250 MG ORAL TABLET Take two tablets to day and then 1 tablet daily for 4 days ZITHROMAX Z-ISAIAS 250 MG ORAL TAB LET 742886 AZITHROMYCIN Inactive CRESTOR 10 MG ORAL TABLET 1 by mouth every day CRESTOR 10 MG ORAL TABLET 093051 ROSUVASTATIN CALCIUM Inactive DEPO-TESTOSTERONE 200 MG/ML INTRAMUSCULAR SOLUTION as directed DEPO-TESTOSTERONE 200 MG/ML INTRAMUSCULAR SOLUTION 8738496 RUFINO TOSTERONE CYPIONATE Inactive TOUJEO SOLOSTAR 300 [...] Fluarix, Agriflu(>= 18 yo)) Fluzone (>3 yrs.) [[id number]] Influenza, seasonal, inject able Seasonal influenza vaccine, injectable, containing preservative, for > 3 years old (Afluria, FluLaval, Fluzone, Fluvirin, Fluarix, Agriflu(>= 18 yo)) Fluzone (>3 yrs.) [[id number]] Influenza, seasonal, inject able Vital Signs Date [...] - Chem istry sodium, serum 139 mmol/L 707-492 3044/06/26 potassium, serum 4.8 mmol/L 3.5-5.2 chloride, serum [...] 0.40 mg/dL 0.00-1.00 cholesterol, serum 218 mg/dL 516-083 2224/12/18 triglyceride, serum, fasting 357 mg/dL 30-200 HDL cholesterol, serum 49 mg/dL 32-60 LDL cholesterol, serum 103.00 mg/dL 5.00-130.00 sodium, serum 142 mmol/L 246-374 0762/12/18 carbon dioxide, venous blood 32.5 mmol/L 21.0-32 [...] negative Encounters Code Encounter Date Provider Facility CPT-03720 [id number] Vst-Est Level IV 15:12:52 UNIT AIDE TECH Charlie Childers MD [facility] CPT-34981 [id number] Vst-Est Level IV 15:30:55 UNIT AIDE TECH Charlie Childers MD [facility]-26025 [id number] Vst-Est Level IV 13:49:06 C DT Ann Martinez [facility] CPT-21519 Level 4 Est. Patient 17:26:08 CDT Ann trujillo [facility] CPT-82398 [id number] Vst-Est Level V 14:26:27 CDT Aneudy Childers MD [facility] CPT-39985 Level 4 Est. Patient 17:05:37 CDT Baltazar Childers MD [facility] CPT-13310 Level 4 Est. Patient 16:21:19 UNIT AIDE TECH Baltazar Childers MD [facility] CPT-17239 Level 4 Est. Patient 12:25:11 CDT Baltazar Childers MD [facility] CPT-48506 Level 4 Est. Patient 14:22:31 CDT Baltazar Childers MD [facility] CPT-43213 Level 4 Est. Patient 15:44:38 CDT Shonna Parker APRN [facility] CPT-08850 Level 4 Est. Patient 11:34:17 CDT Baltazar Childers MD [facility] CPT-54246 Level 3 Est. Patient 16:40:40 CDT Baltazar Childers MD [facility] CPT-94679 Level 4 Est. Patient 10:41:24 CDT Baltazar Childers MD [facility] CPT-48787 Level 4 Est. Patient 16:01:48 CDT Baltazar Childers MD [facility] CPT-28745 Level 4 Est. Patient 16:54:07 UNIT AIDE TECH Baltazar Childers MD [facility] CPT-28310 Level 4 Est. Patient 15:42:12 CDT Baltazar Childers MD [facility] CPT-27162 Level 4 Est. Patient 11:29:55 CDT Baltazar Childers MD [facility] CPT-57036 Level 4 Est. Patient 14:15:19 CDT Baltazar Childers MD [facility] CPT-71356 Level 4 Est. Patient 12:20:13 CDT Baltazar Childers MD [facility] CPT-99118 Level 4 Est. Patient 14:52:45 UNIT AIDE TECH Baltazar Childers MD [facility] CPT-13201 Level 4 Est. Patient 14:18:34 UNIT AIDE TECH Baltazar Childers MD [facility] CPT-71147 Level 4 Est. Patient 15:18:29 CDT Baltazar Childers MD [facility] CPT-29080 Level 3 Est. Patient 12:45:34 CDT Baltazar Childers MD [facility] CPT-75527 Level 3 Est. Patient 10:10:11 CDT Baltazar Childers MD [facility] CPT-21450 Level 3 Est. Patient 14:07:50 CDT Baltazar Childers MD [facility] CPT-54289 Level 4 Est. Patient 12:26:10 UNIT AIDE TECH Baltazar Childers MD [facility] CPT-37469 Level 4 Est. Patient 14:45:38 CDT Baltazar Childers MD [facility] CPT-91383 Level 4 New Patient 12:30:48 CDT Baltazar hinton MD [facility] Procedures Code Procedure Name Date Entry Date Standard Desc ription CPT-000 Give Appropriate Flu Vaccine 12:25:14 CDT 2 CPT-32341 First Vx - Ix admin via ID I M or jet injects without counseling by physician 13:08:59 CDT CPT-16822 Fluzone Quadrivalent Intramuscular Suspe nsion 0.5 ML 13:08:59 CDT CPT-39559 Venipuncture Draw Fee 12:04:12 CDT CPT-08633 Lipid - LAB USE ONLY 17:39:15 UNIT AIDE TECH 9 CPT-40062 HGBA1C - LAB USE ONLY 17:39:15 UNIT AIDE TECH CPT-37794 CMP - LAB USE ONLY 17:39:14 UNIT AIDE TECH CPT-68387 Venipuncture Draw Fee 17:39:14 UNIT AIDE TECH CPT-91914 First Vx - Ix admin via ID I M or jet injects without counseling by physician 16:55:17 UNIT AIDE TECH CPT-44818 Fluzone Quadrivalent Intramuscular Suspe nsion 0.5 ML 16:55:17 UNIT AIDE TECH CPT-46018 Renal Panel - LAB USE ONLY 17:39:20 CDT 201 10/31/07 CPT-76895 CBC - LAB USE ONLY 17:39:20 CDT CPT-04731 Venipuncture Draw Fee 17:39:20 CDT CPT-50260 Venipuncture Draw Fee 14:33:30 CDT CPT-19483 Renal Panel - LAB USE ONLY 14:33:30 CDT 201 10/31/07 CPT-13728 CBC - LAB USE ONLY 14:33:29 CDT CPT-13369 Venipuncture Draw Fee 14:50:21 UNIT AIDE TECH CPT-48246 Immunization Single Admin 17:35:35 CDT 2014 CPT-40104 Fluzone Quadrivalent preservative free ( >=3yrs.) 17:35:35 CDT CPT-57088 Venipuncture Draw Fee 12:10:27 UNIT AIDE TECH CPT-95897 Fluzone Quadrivalent Intramuscular Suspe nsion 0.5 ML 10:49:13 CDT CPT-38779 First Vx Component - Ix admi n via ID IM or jet inj without physician counseling 15:17:19 UNIT AIDE TECH CPT-80730 Pneumovax 23 15:17:19 UNIT AIDE TECH CPT-15284 Pneumovax 14:52:45 UNIT AIDE TECH CPT-32210 Venipuncture Draw Fee 14:06:30 UNIT AIDE TECH CPT-000 Give Appropriate Flu Vaccine 14:18:34 UNIT AIDE TECH 2 CPT-26282 Administration single or combination vac cine inc oral 14:46:00 UNIT AIDE TECH CPT-15218 Influenza split virus > age 3 14:46:00 UNIT AIDE TECH CPT-OV Office Visit 19:13:16 CDT CPT-43005 Zostavax 18:41:56 CDT CPT-54790 Administration single or combination vac cine inc oral 12:56:39 CDT CPT-37733 Zoster Vaccine (Zostavax) 12:56:39 CDT 2012 CPT-22909 Venipuncture Draw Fee 10:58:57 CDT CPT-73647 Sono pelvis non OB uterus ovaries cervix 17:45:04 CDT CPT-49534 Sono retroperitoneal complete kidneys an d bladder 17:14:36 CDT CPT-OV Office Visit 14:59:38 UNIT AIDE TECH CPT-J1070 Depo Testosterone 100 mg 14:50:13 CDT 03/05 CPT-56638 Abx/Therapy Injection 14:50:13 CDT CPT-96946 Administration single or combination vac cine inc oral 14:34:43 CDT CPT-64193 Influenza split virus > age 3 14:34:43 CDT CPT-J1070 Depo Testosterone 100 mg 17:37:13 CDT 01/11 CPT-10841 Abx/Therapy Injection 17:37:13 CDT CPT-22678 Venipuncture Draw Fee 16:30:13 CDT CPT-81706 Venipuncture Draw Fee 16:29:43 CDT CPT-J1070 Depo Testosterone 100 mg 14:45:38 CDT 01/11
--- OUTSIDE RECORDS SUMMARY | 2019-10-27 11:50 | XMS REPORT | Clinical Summary ---
Author Author Admin, Elba [employer] Address Unknown Phone Unavailable Allergies, Adverse Reactions, [...] ronary atherosclerosis of unspecified type of vessel, [place] or graft OTH NONSPC ABN FINDNG RAD&OTH [...] pharyngitis BMI 37-37.9 adult V85.37 Refinement Baltazar amtta MD Body Mass Index 37.0-37.9, adult BMI [...] INJECTOR 33 units SC daily INSULIN GLARGINE 71616484426 Active Baltazar Childers MD Active TRAMADOL HCL 50 MG ORAL TABLET 1 twice a day as needed for pain TRAMADOL HCL 97357339799 No Longer Active Baltazar Childers MD Active ROBAXIN 500 MG ORAL TABLET Take 1.5 (one and one half) tabs once daily METHOCARBAMOL 85156964837 Active Baltazar Childers MD Active SYNTHROID 112 MCG ORAL TABLET Take one tablet a day LEVOTHYROXINE SODIUM 96260740570 Active Baltazar Childers MD Active TRUE METRIX AIR GLUCOSE METER DEVICE Use as directed BLOOD GLUCOSE MONITORING SUPPL 32120207091 Active Baltazar Childers MD Activ e TRUE METRIX BLOOD GLUCOSE TEST IN VITRO STRIP test blood sug ar BID Dx: E11.65 GLUCOSE BLOOD 28023336493 Active KENDALL Juarez Active NORTRIPTYLINE HCL 50 MG ORAL CAPSULE 1 twice a day for neuropathy 2 NORTRIPTYLINE HCL 76004121182 Active Baltazar Childers MD Acti ve ASPIRIN 81 MG TBEC Take one (1) tablet by mouth daily ASPIRIN 05761253115 Active Baltazar Childers MD Active GABAPENTIN 300 MG ORAL CAPSULE 1 three times a day 201 12/03/26 GABAPENTIN 74950852683 No Longer Active Baltazar Childers MD Activ e LISINOPRIL 20 MG ORAL TABLET 1 tablet by mouth daily at night 2016 LISINOPRIL 91381073892 Active Baltazar Childers MD Active ZITHROMAX Z-ISAIAS 250 MG ORAL TABLET Take two tablets to day and then 1 tablet daily for 4 days AZITHROMYCIN 55666944693 No Longer A ctive Baltazar Childers MD Active AMLODIPINE BESYLATE 5 MG ORAL TABLET 1 tab daily for HTN AMLODIPINE BESYLATE 53395004394 Active Baltazar Childers MD Active GLIPIZIDE 10 MG ORAL TABLET take 2 tablets twice daily GLIPIZIDE 28961727041 Active Baltazar Childers MD Active SUCRALFATE 1 GM ORAL TABLET 1 four times a day to coat the stoma ch SUCRALFATE 22376872431 No Longer Active Baltazar Childers MD Active PEN NEEDLES 31G X 6 MM use 1 daily INSULIN PEN NE EDLE 97040776554 Active KENDALL Juarez Active CELINA PARIKH 300 UNIT/ML SUBCUTANEOUS SOLUTION PEN- INJECTOR 10 units SC daily INSULIN GLARGINE 36062111948 No Longer Active Rola ARGUETA Active NAPROXEN SODIUM 220 MG ORAL TABLET 1 three times a day as needed NAPROXEN SODIUM 80884544179 No Longer Active Baltazar Childers MD Active ATORVASTATIN CALCIUM 20 MG ORAL TABLET Take 1 tab daily ATORVASTATIN CALCIUM 33954803421 Active Baltazar Childers MD A ctive FUROSEMIDE 40 MG ORAL TABLET Take one by mouth daily FUROSEMIDE 66981398165 Active Baltazar Childers MD Active LISINOPRIL 20 MG ORAL TABLET Take one by mouth daily at bedtime LISINOPRIL 11907483917 No Longer Active Baltazar Childers MD Active ONETOUCH ULTRA BLUE IN VITRO STRIP Test twice a day 07/11/11 GLUCOSE BLOOD 82385503818 No Longer Active Baltazar Childers MD Acti ve TRUEPLUS LANCETS 33G Test twice a day LANCETS 2091140 2061 Active KENDALL Juarez Active TRUEDRAW LANCING DEVICE Test twice a day LANCET DEVICES 64557427108 Active Baltazar Childers MD Active TRUETRACK BLOOD GLUCOSE w/Device KIT Test twice a day BLOOD GLUCOSE MONITORING SUPPL 73855790779 Active Baltazar Childers MD Activ e HYDROCODONE-ACETAMINOPHEN 7.5-325 MG ORAL TABLET Take 1 tab every 6-8 hours PRN HYDROCODONE-ACETAMINOPHEN 99039821225 Active Baltazar Nickerson MD Active GABAPENTIN 300 MG ORAL CAPSULE 1 po qd x 2 days, then 1 po BID x 2 days, then 1 po TID GABAPENTIN 76339668545 No Longer Active Baltazar Childers MD Active NAPROXEN 500 MG ORAL TABLET 1 tablet by mouth twice daily NAPROXEN 86102837973 No Longer Active Baltazar Childers MD Active PROAIR HFA 108 (90 Base) MCG/ACT INHALATION AEROSOL SO LUTION 2 puffs four times a day as needed ALBUTEROL SULFATE 46686345566 Active Shun Arellano LPN Active DEPO-TESTOSTERONE 200 MG/ML INTRAMUSCULAR SOLUTION as directed TESTOSTERONE CYPIONATE 96879100103 No Longer Active Baltazar Childers MD Active LIPITOR 20 MG ORAL TABLET Take one by mouth daily in evening ATORVASTATIN CALCIUM 64661138214 No Longer Active Baltazar Childers MD Active CRESTOR 10 MG ORAL TABLET 1 by mouth every day ROSUVASTATIN CALCIUM 76008243624 No Longer Active Baltazar Childers MD Active PHENTERMINE HCL 37.5 MG ORAL TABLET Take one by mouth daily PHENTERMINE HCL 19148715800 No Longer Active Baltazar Childers MD Ac tive TIZANIDINE HCL 4 MG ORAL TABLET 1 daily as needed for muscle spa sm TIZANIDINE HCL 78316787206 No Longer Active Dawna Salazar RN Active [id number]-[id number]-KCWNUMFT 50-325-40 MG ORAL TABLET 1 fo ur times a day as needed for heacache [id number] 55555252861 Active Beth Carr, RMA Active SUMATRIPTAN SUCCINATE 100 MG ORAL TABLET 1 tablet by m outh at onset of migraine as needed SUMATRIPTAN SUCCINATE 06537937303 Active Beth Angel ronnieKENDALL Active LORATADINE 10 MG ORAL TABLET Take one by mouth daily LORATADINE 40658702436 Active Baltazar Childers MD Active OMEPRAZOLE 20 MG ORAL CAPSULE DELAYED RELEASE Take one by mouth jostin ly OMEPRAZOLE 23592857785 Active Baltazar Childers MD Active HYDROXYZINE HCL 25 MG ORAL TABLET Take one by mouth daily HYDROXYZINE HCL 56852413525 Active Baltazar Childers MD Active ALPRAZOLAM 1 MG ORAL TABLET 1 tablet by mouth daily at bedti al for restless leg ALPRAZOLAM 51161819462 Active Baltazar Childers MD Active METFORMIN HCL 1000 MG ORAL TABLET Take one by mouth twice daily METFORMIN HCL 64454364105 Active Baltazar Childers MD Active NAPROXEN 500 MG ORAL TABLET 1 tablet by mouth twice daily NAPROXEN 500 MG ORAL TABLET 157889 NAPROXEN Inactive PHENTERMINE HCL 37.5 MG ORAL TABLET Take one by mouth daily PHENTERMINE HCL 37.5 MG ORAL TABLET 630641 PHENTERMINE HCL Inac tive SUCRALFATE 1 GM ORAL TABLET 1 four times a day to coat the stoma ch SUCRALFATE 1 GM ORAL TABLET 359790 SUCRALFATE Inac tive NAPROXEN SODIUM 220 MG ORAL TABLET 1 three times a day as needed NAPROXEN SODIUM 220 MG ORAL TABLET 275653 NAPROXEN SODI UM Inactive TRAMADOL HCL 50 MG ORAL TABLET 1 twice a day as needed for pain TRAMADOL HCL 50 MG ORAL TABLET 638855 TRAMADOL HCL I nactive TIZANIDINE HCL 4 MG ORAL TABLET 1 daily as needed for muscle spa sm TIZANIDINE HCL 4 MG ORAL TABLET 428105 TIZANIDINE HCL Inactive GABAPENTIN 300 MG ORAL CAPSULE 1 po qd x 2 days, then 1 po BID x 2 days, then 1 po TID GABAPENTIN 300 MG ORAL CAPSULE 098660 GABAP ENTIN Inactive GABAPENTIN 300 MG ORAL CAPSULE 1 three times a day 201 12/03/26 GABAPENTIN 300 MG ORAL CAPSULE 139132 GABAPENTIN Inactive LIPITOR 20 MG ORAL TABLET Take one by mouth daily in evening LIPITOR 20 MG ORAL TABLET 571511 ATORVASTATIN CALCIUM Inactive ONETOUCH ULTRA BLUE IN VITRO STRIP Test twice a day 07/11/11 ONETOUCH ULTRA BLUE IN VITRO STRIP GLUCOSE BLOOD Inact amie ZITHROMAX Z-ISAIAS 250 MG ORAL TABLET Take two tablets to day and then 1 tablet daily for 4 days ZITHROMAX Z-ISAIAS 250 MG ORAL TAB LET 096398 AZITHROMYCIN Inactive CRESTOR 10 MG ORAL TABLET 1 by mouth every day CRESTOR 10 MG ORAL TABLET 749239 ROSUVASTATIN CALCIUM Inactive DEPO-TESTOSTERONE 200 MG/ML INTRAMUSCULAR SOLUTION as directed DEPO-TESTOSTERONE 200 MG/ML INTRAMUSCULAR SOLUTION 8180564 RUFINO TOSTERONE CYPIONATE Inactive TOUJEO SOLOSTAR 300 [...] Fluarix, Agriflu(>= 18 yo)) Fluzone (>3 yrs.) [[id number]] Influenza, seasonal, inject able Seasonal influenza vaccine, injectable, containing preservative, for > 3 years old (Afluria, FluLaval, Fluzone, Fluvirin, Fluarix, Agriflu(>= 18 yo)) Fluzone (>3 yrs.) [[id number]] Influenza, seasonal, inject able Vital Signs Date [...] - Chem istry sodium, serum 139 mmol/L 137-716 3360/06/26 potassium, serum 4.8 mmol/L 3.5-5.2 chloride, serum [...] 0.40 mg/dL 0.00-1.00 cholesterol, serum 218 mg/dL 525-436 2685/12/18 triglyceride, serum, fasting 357 mg/dL 30-200 HDL cholesterol, serum 49 mg/dL 32-60 LDL cholesterol, serum 103.00 mg/dL 5.00-130.00 sodium, serum 142 mmol/L 738-818 2088/12/18 carbon dioxide, venous blood 32.5 mmol/L 21.0-32 [...] negative Encounters Code Encounter Date Provider Facility CPT-65074 [id number] Vst-Est Level IV 15:12:52 BERRY PICKER MACHINE OPERATOR Charlie Childers MD [facility] CPT-28405 [id number] Vst-Est Level IV 15:30:55 BERRY PICKER MACHINE OPERATOR Charlie Childers MD [facility]-12842 25823-Yco Vst-Est Level IV 13:49:06 C DT Ann Martinez [facility] CPT-19043 Level 4 Est. Patient 17:26:08 CDT Ann trujillo [facility] CPT-37612 [id number] Vst-Est Level V 14:26:27 CDT Aneudy Childers MD [facility] CPT-87861 Level 4 Est. Patient 17:05:37 CDT Baltazar Childers MD [facility] CPT-85540 Level 4 Est. Patient 16:21:19 BERRY PICKER MACHINE OPERATOR Baltazar Childers MD [facility] CPT-63546 Level 4 Est. Patient 12:25:11 CDT Baltazar Childers MD [facility] CPT-38303 Level 4 Est. Patient 14:22:31 CDT Baltazar Childers MD [facility] CPT-50482 Level 4 Est. Patient 15:44:38 CDT Shonna Parker APRN [facility] CPT-89740 Level 4 Est. Patient 11:34:17 CDT Baltazar Childers MD [facility] CPT-18524 Level 3 Est. Patient 16:40:40 CDT Baltazar Childers MD [facility] CPT-61931 Level 4 Est. Patient 10:41:24 CDT Baltazar Childers MD [facility] CPT-00620 Level 4 Est. Patient 16:01:48 CDT Baltazar Childers MD [facility] CPT-88965 Level 4 Est. Patient 16:54:07 BERRY PICKER MACHINE OPERATOR Baltazar Childers MD [facility] CPT-76988 Level 4 Est. Patient 15:42:12 CDT Baltazar Childers MD [facility] CPT-84073 Level 4 Est. Patient 11:29:55 CDT Baltazar Childers MD [facility] CPT-53828 Level 4 Est. Patient 14:15:19 CDT Baltazar Childers MD [facility] CPT-72590 Level 4 Est. Patient 12:20:13 CDT Baltazar Childers MD [facility] CPT-18910 Level 4 Est. Patient 14:52:45 BERRY PICKER MACHINE OPERATOR Baltazar Childers MD [facility] CPT-89540 Level 4 Est. Patient 14:18:34 BERRY PICKER MACHINE OPERATOR Baltazar Childers MD [facility] CPT-76653 Level 4 Est. Patient 15:18:29 CDT Baltazar Childers MD [facility] CPT-75982 Level 3 Est. Patient 12:45:34 CDT Baltazar Childers MD [facility] CPT-17859 Level 3 Est. Patient 10:10:11 CDT Baltazar Childers MD [facility] CPT-68754 Level 3 Est. Patient 14:07:50 CDT Baltazar Childers MD [facility] CPT-48482 Level 4 Est. Patient 12:26:10 BERRY PICKER MACHINE OPERATOR Baltazar Childers MD [facility] CPT-31612 Level 4 Est. Patient 14:45:38 CDT Baltazar Childers MD [facility] CPT-69591 Level 4 New Patient 12:30:48 CDT Baltazar hinton MD [facility] Procedures Code Procedure Name Date Entry Date Standard Desc ription CPT-000 Give Appropriate Flu Vaccine 12:25:14 CDT 2 CPT-17252 First Vx - Ix admin via ID I M or jet injects without counseling by physician 13:08:59 CDT CPT-60339 Fluzone Quadrivalent Intramuscular Suspe nsion 0.5 ML 13:08:59 CDT CPT-31532 Venipuncture Draw Fee 12:04:12 CDT CPT-75300 Lipid - LAB USE ONLY 17:39:15 BERRY PICKER MACHINE OPERATOR 9 CPT-78240 HGBA1C - LAB USE ONLY 17:39:15 BERRY PICKER MACHINE OPERATOR CPT-38165 CMP - LAB USE ONLY 17:39:14 BERRY PICKER MACHINE OPERATOR CPT-29335 Venipuncture Draw Fee 17:39:14 BERRY PICKER MACHINE OPERATOR CPT-32841 First Vx - Ix admin via ID I M or jet injects without counseling by physician 16:55:17 BERRY PICKER MACHINE OPERATOR CPT-17551 Fluzone Quadrivalent Intramuscular Suspe nsion 0.5 ML 16:55:17 BERRY PICKER MACHINE OPERATOR CPT-79294 Renal Panel - LAB USE ONLY 17:39:20 CDT 201 10/31/07 CPT-69291 CBC - LAB USE ONLY 17:39:20 CDT CPT-73309 Venipuncture Draw Fee 17:39:20 CDT CPT-09144 Venipuncture Draw Fee 14:33:30 CDT CPT-60801 Renal Panel - LAB USE ONLY 14:33:30 CDT 201 10/31/07 CPT-18983 CBC - LAB USE ONLY 14:33:29 CDT CPT-86503 Venipuncture Draw Fee 14:50:21 BERRY PICKER MACHINE OPERATOR CPT-47626 Immunization Single Admin 17:35:35 CDT 2014 CPT-27752 Fluzone Quadrivalent preservative free ( >=3yrs.) 17:35:35 CDT CPT-13754 Venipuncture Draw Fee 12:10:27 BERRY PICKER MACHINE OPERATOR CPT-35390 Fluzone Quadrivalent Intramuscular Suspe nsion 0.5 ML 10:49:13 CDT CPT-26135 First Vx Component - Ix admi n via ID IM or jet inj without physician counseling 15:17:19 BERRY PICKER MACHINE OPERATOR CPT-99342 Pneumovax 23 15:17:19 BERRY PICKER MACHINE OPERATOR CPT-02496 Pneumovax 14:52:45 BERRY PICKER MACHINE OPERATOR CPT-60233 Venipuncture Draw Fee 14:06:30 BERRY PICKER MACHINE OPERATOR CPT-000 Give Appropriate Flu Vaccine 14:18:34 BERRY PICKER MACHINE OPERATOR 2 CPT-32057 Administration single or combination vac cine inc oral 14:46:00 BERRY PICKER MACHINE OPERATOR CPT-76335 Influenza split virus > age 3 14:46:00 BERRY PICKER MACHINE OPERATOR CPT-OV Office Visit 19:13:16 CDT CPT-50630 Zostavax 18:41:56 CDT CPT-65451 Administration single or combination vac cine inc oral 12:56:39 CDT CPT-78655 Zoster Vaccine (Zostavax) 12:56:39 CDT 2012 CPT-55182 Venipuncture Draw Fee 10:58:57 CDT CPT-17896 Sono pelvis non OB uterus ovaries cervix 17:45:04 CDT CPT-94763 Sono retroperitoneal complete kidneys an d bladder 17:14:36 CDT CPT-OV Office Visit 14:59:38 BERRY PICKER MACHINE OPERATOR CPT-J1070 Depo Testosterone 100 mg 14:50:13 CDT 03/05 CPT-76709 Abx/Therapy Injection 14:50:13 CDT CPT-43860 Administration single or combination vac cine inc oral 14:34:43 CDT CPT-02206 Influenza split virus > age 3 14:34:43 CDT CPT-J1070 Depo Testosterone 100 mg 17:37:13 CDT 01/11 CPT-87617 Abx/Therapy Injection 17:37:13 CDT CPT-32426 Venipuncture Draw Fee 16:30:13 CDT CPT-62458 Venipuncture Draw Fee 16:29:43 CDT CPT-J1070 Depo Testosterone 100 mg 14:45:38 CDT 01/11
[2019-10-27] MEDS ORDERED: NS IV 500 ML 500 ML IV ONE (11:51)
[2019-10-27] MEDS ORDERED: ENOXAPARIN 100 MG/1 ML (LOVENOX) SYR ONE (11:51)
--- OUTSIDE RECORDS SUMMARY | 2019-10-27 11:51 | XMS REPORT | Clinical Summary ---
Author Author Admin, Elba Lance AFAR Address Unknown Phone Unavailable Allergies, Adverse Reactions, Alerts Allergy Name Reaction Description Start Date Severity Status Pr ovider ASPIRIN Critical Active Baltazar bynum MD PENICILLIN yeast infection Critical Active Baltazar [...] not stated as uncontrolled GERD 530.81 Active aBltazar Childers MD Esophageal reflux HYPERTENSION 401.1 Active Baltazar Childers MD Benign essential hypertension EDEMA 782.3 Active Baltazar Childers MD Edema ALLERGIC RHINITIS 477.9 Active Baltazar Childers MD Allergic rhinitis, cause unspecified MIGRAINE 346.90 Active Baltazar Childers MD Migraine, unspecified, without mention of intractable migraine, without mention of status migrainosus HYPERLIPIDEMIA 272.4 Refinement Baltazar Childers MD Other and unspecified hyperlipidemia Familial hypercholesterolemia 272.4 Active 11/17 Baltazar Childers MD Other and unspecified hyperlipidemia [...] ronary atherosclerosis of unspecified type of vessel, ramona or graft OTH NONSPC ABN FINDNG RAD&OTH [...] syndrome Chronic kidney disease stage III 585.3 Active 201 10/25/03 Elba Kaeux RMA Chronic kidney [...] Generic Name NDC Status Provider Patient Instruction TRAMADOL HCL 50 MG ORAL TABLET 1 twice a day as needed for pain TRAMADOL HCL 46783707196 No Longer Active Baltazar Childers MD Active ROBAXIN 500 MG ORAL TABLET Take 1.5 (one and one half) tabs once daily METHOCARBAMOL 43910599843 Active Baltazar Childers MD Active SYNTHROID 112 MCG ORAL TABLET Take one tablet a day LEVOTHYROXINE SODIUM 97047025704 Active Baltazar Childers MD Active TRUE METRIX AIR GLUCOSE METER DEVICE Use as directed BLOOD GLUCOSE MONITORING SUPPL 41418455171 Active Baltazar Childers MD Activ e TRUE METRIX BLOOD GLUCOSE TEST IN VITRO STRIP test blood sug ar BID Dx: E11.65 GLUCOSE BLOOD 44843492809 Active KENDALL Juarez Active NORTRIPTYLINE HCL 50 MG ORAL CAPSULE 1 twice a day for neuropathy 2 NORTRIPTYLINE HCL 90156040837 Active Baltazar Childers MD Acti ve ASPIRIN 81 MG TBEC Take one (1) tablet by mouth daily ASPIRIN 59628210960 Active Baltazar Childers MD Active GABAPENTIN 300 MG ORAL CAPSULE 1 three times a day 201 12/03/26 GABAPENTIN 88233696036 No Longer Active Baltazar Childers MD Activ e LISINOPRIL 20 MG ORAL TABLET 1 tablet by mouth daily at night 2016 LISINOPRIL 52716057432 Active Baltazar Childers MD Active ZITHROMAX Z-ISAIAS 250 MG ORAL TABLET Take two tablets to day and then 1 tablet daily for 4 days AZITHROMYCIN 96148985581 No Longer A ctive Baltazar Childers MD Active LANTUS SOLOSTAR 100 UNIT/ML SUBCUTANEOUS SOLUTION PEN- INJECTOR 30 units SC daily INSULIN GLARGINE 09998690707 Active Baltazar Childers MD Active AMLODIPINE BESYLATE 5 MG ORAL TABLET 1 tab daily for HTN AMLODIPINE BESYLATE 69137674335 Active Baltazar Childers MD Active GLIPIZIDE 10 MG ORAL TABLET take 2 tablets twice daily GLIPIZIDE 29471542518 Active Baltazar Childers MD Active SUCRALFATE 1 GM ORAL TABLET 1 four times a day to coat the stoma ch SUCRALFATE 70781195306 No Longer Active Baltazar Childers MD Active PEN NEEDLES 31G X 6 MM use 1 daily INSULIN PEN NE EDLE 50705857812 Active KENDALL Juarez Active TOUJEO SOLOSTAR 300 UNIT/ML SUBCUTANEOUS SOLUTION PEN- INJECTOR 10 units SC daily INSULIN GLARGINE 28114076223 No Longer Active Rola ARGUETA Active NAPROXEN SODIUM 220 MG ORAL TABLET 1 three times a day as needed NAPROXEN SODIUM 93976426020 No Longer Active Baltazar Childers MD Active ATORVASTATIN CALCIUM 20 MG ORAL TABLET Take 1 tab daily ATORVASTATIN CALCIUM 39918138061 Active Baltazar Childers MD A ctive FUROSEMIDE 40 MG ORAL TABLET Take one by mouth daily FUROSEMIDE 32709689415 Active Baltazar Childers MD Active LISINOPRIL 20 MG ORAL TABLET Take one by mouth daily at bedtime LISINOPRIL 33542884422 No Longer Active Baltazar Childers MD Active ONETOUCH ULTRA BLUE IN VITRO STRIP Test twice a day 07/11/11 GLUCOSE BLOOD 87292206330 No Longer Active Baltazar Childers MD Acti ve TRUEPLUS LANCETS 33G Test twice a day LANCETS 0825892 0054 Active Beth Carr, RMA Active TRUEDRAW LANCING DEVICE Test twice a day LANCET DEVICES 37739673410 Active Baltazar Childers MD Active TRUETRACK BLOOD GLUCOSE w/Device KIT Test twice a day BLOOD GLUCOSE MONITORING SUPPL 41521587535 Active Baltazar Childers MD Activ e HYDROCODONE-ACETAMINOPHEN 7.5-325 MG ORAL TABLET Take 1 tab every 6-8 hours PRN HYDROCODONE-ACETAMINOPHEN 49308690283 Active Baltazar Nickerson MD Active GABAPENTIN 300 MG ORAL CAPSULE 1 po qd x 2 days, then 1 po BID x 2 days, then 1 po TID GABAPENTIN 77710678721 No Longer Active Baltazar Childers MD Active NAPROXEN 500 MG ORAL TABLET 1 tablet by mouth twice daily NAPROXEN 04600214643 No Longer Active Baltazar Childers MD Active PROAIR HFA 108 (90 Base) MCG/ACT INHALATION AEROSOL SO LUTION 2 puffs four times a day as needed ALBUTEROL SULFATE 63019956428 Active Paul hCilders MD Active DEPO-TESTOSTERONE 200 MG/ML INTRAMUSCULAR SOLUTION as directed TESTOSTERONE CYPIONATE 46052447028 No Longer Active Baltazar Childers MD Active LIPITOR 20 MG ORAL TABLET Take one by mouth daily in evening ATORVASTATIN CALCIUM 97849553046 No Longer Active Baltazar Childers MD Active CRESTOR 10 MG ORAL TABLET 1 by mouth every day ROSUVASTATIN CALCIUM 29569285895 No Longer Active Baltazar Childers MD Active PHENTERMINE HCL 37.5 MG ORAL TABLET Take one by mouth daily PHENTERMINE HCL 73898516437 No Longer Active Baltazar Childers MD Ac tive TIZANIDINE HCL 4 MG ORAL TABLET 1 daily as needed for muscle spa sm TIZANIDINE HCL 77358056333 No Longer Active Dawna Salazar RN Active [id number] 50-325-40 MG ORAL TABLET 1 fo ur times a day as needed for heacache [id number] 67784023963 Active KENDALL Juarez Active SUMATRIPTAN SUCCINATE 100 MG ORAL TABLET 1 tablet by m outh at onset of migraine as needed SUMATRIPTAN SUCCINATE 07739226932 Active Beth trujillo, KENDALL Active LORATADINE 10 MG ORAL TABLET Take one by mouth daily LORATADINE 35078281375 Active Baltazar Childers MD Active OMEPRAZOLE 20 MG ORAL CAPSULE DELAYED RELEASE Take one by mouth jostin ly OMEPRAZOLE 43404122829 Active Baltazar Childers MD Active HYDROXYZINE HCL 25 MG ORAL TABLET Take one by mouth daily HYDROXYZINE HCL 32447284596 Active Baltazar Childers MD Active ALPRAZOLAM 1 MG ORAL TABLET 1 tablet [facility] ALPR[facility]OLAM 00253010419 Active Baltazar Childers MD Active METFORMIN HCL 1000 MG ORAL TABLET Take one by mouth twice daily METFORMIN HCL 42361387031 Active Baltazar Childers MD Active TIZANIDINE HCL 4 MG ORAL TABLET 1 daily as needed for muscle spa sm TIZANIDINE HCL 4 MG ORAL TABLET 259359 TIZANIDINE HCL Inactive PHENTERMINE HCL 37.5 MG ORAL TABLET Take one by mouth daily PHENTERMINE HCL 37.5 MG ORAL TABLET 576980 PHENTERMINE HCL Inac tive CRESTOR 10 MG ORAL TABLET 1 by mouth every day CRESTOR 10 MG ORAL TABLET 343296 ROSUVASTATIN CALCIUM Inactive LIPITOR 20 MG ORAL TABLET Take one by mouth daily in evening LIPITOR 20 MG ORAL TABLET 606253 ATORVASTATIN CALCIUM Inactive DEPO-TESTOSTERONE 200 MG/ML INTRAMUSCULAR SOLUTION as directed DEPO-TESTOSTERONE 200 MG/ML INTRAMUSCULAR SOLUTION 9704408 RUFINO TOSTERONE CYPIONATE Inactive NAPROXEN 500 MG ORAL TABLET 1 tablet by mouth twice daily NAPROXEN 500 MG ORAL TABLET 152096 NAPROXEN Inactive GABAPENTIN 300 MG ORAL CAPSULE 1 po qd x 2 days, then 1 po BID x 2 days, then 1 po TID GABAPENTIN 300 MG ORAL CAPSULE 344412 GABAP ENTIN Inactive ONETOUCH ULTRA BLUE IN VITRO STRIP Test twice a day 07/11/11 ONETOUCH ULTRA BLUE IN VITRO STRIP GLUCOSE BLOOD Inact amie NAPROXEN SODIUM 220 MG ORAL TABLET 1 three times a day as needed NAPROXEN SODIUM 220 MG ORAL TABLET 291076 NAPROXEN SODI UM Inactive TOUJEO SOLOSTAR 300 UNIT/ML SUBCUTANEOUS SOLUTION PEN- INJECTOR 10 units SC daily TOUJEO SOLOSTAR 300 UNIT/ML SUBCUTANEOUS SOLUTION PEN-INJECTOR INSULIN GLARGINE Inactive SUCRALFATE 1 GM ORAL TABLET 1 four times a day to coat the stoma ch SUCRALFATE 1 GM ORAL TABLET 336744 SUCRALFATE Inac tive GABAPENTIN 300 MG ORAL CAPSULE 1 three times a day 201 12/03/26 GABAPENTIN 300 MG ORAL CAPSULE 075415 GABAPENTIN Inactive TRAMADOL HCL 50 MG ORAL TABLET 1 twice a day as needed for pain TRAMADOL HCL 50 MG ORAL TABLET 842761 TRAMADOL HCL I nactive ZITHROMAX Z-ISAIAS 250 MG ORAL TABLET Take two tablets to day and then 1 tablet daily for 4 days ZITHROMAX Z-ISAIAS 250 MG ORAL TAB LET 059176 AZITHROMYCIN Inactive Immunizations Vaccine Administration Date Value Standard Floyd cription influenza immunization (Flu Vax) has been administered 05/11 Done according to patient influenza virus vaccine, unspecified for mulation pneumococcal immunization administered Pneumovax 23 [CVX33] pneumococcal polysaccharide vaccine, 23 valent Seasonal influenza vaccine, injectable, containing preservative, for > 3 years old (Afluria, FluLaval, Fluzone, Fluvirin, Fluarix, Agriflu(>= 18 yo)) Fluzone (>3 yrs.) [[id number]] Influenza, seasonal, inject able Seasonal influenza vaccine, injectable, containing preservative, for > 3 years old (Afluria, FluLaval, Fluzone, Fluvirin, Fluarix, Agriflu(>= 18 yo)) Fluzone (>3 yrs.) [[id number]] Influenza, seasonal, inject able Vital Signs Date Name Value Unit Range Description blood pressure, diastolic 83 mm[Hg] BP salmeron [...] - Chem istry sodium, serum 139 mmol/L 864-775 8124/06/26 potassium, serum 4.8 mmol/L 3.5-5.2 chloride, serum 102 mmol/L 98-107 carbon dioxide, venous blood 29.1 mmol/L 21.0-32 .0 blood glucose 179 mg/dL 65-95 calcium, serum 9.7 mg/dL 8.5-10.1 urea nitrogen, blood 31 mg/dL 7-18 creatinine, serum 1.97 mg/dL 0.60-1.30 Lab Report: HGBA1C - Chemistry hemoglobin A1C, blood, as % of total hemoglobin 7.6 % 4.3-6.0 hemoglobin A1C, blood, as % of total hemoglobin 7.4 % 4.3-6.0 Lab Report: HGBA1C, CBC, Comp. Metabolic Panel, Cholesterol, Triglycerid ... - Chemistry calcium, serum 9.2 mg/dL 8.5-10.1 bilirubin, serum, total 0.40 mg/dL 0.00-1.00 cholesterol, serum 218 mg/dL 679-404 8005/12/18 triglyceride, serum, fasting 357 mg/dL 30-200 HDL cholesterol, serum 49 mg/dL 32-60 LDL cholesterol, serum 103.00 mg/dL 5.00-130.00 sodium, serum 142 mmol/L 084-565 8576/12/18 carbon dioxide, venous blood 32.5 mmol/L 21.0-32 [...] negative Encounters Code Encounter Date Provider Facility CPT-88197 [id number] Vst-Est Level IV 15:30:55 CONTRACT RUNNER Charlie Childers MD [facility] CPT-61419 [id number] Vst-Est Level IV 13:49:06 C ELITO Martinez PA-C [facility] CPT-88604 Level 4 Est. Patient 17:26:08 CDT Ann trujillo PA-C [facility] CPT-50616 29801-Tms Vst-Est Level V 14:26:27 CDT Aneudy Childers MD [facility] CPT-58809 Level 4 Est. Patient 17:05:37 CDT Baltazar Childers MD [facility]-97124 Level 4 Est. Patient 16:21:19 CONTRACT RUNNER Baltazar Childers MD [facility]-89575 Level 4 Est. Patient 12:25:11 CDT Baltazar Childers MD [facility]-43869 Level 4 Est. Patient 14:22:31 CDT Baltazar Childers MD [facility]-20995 Level 4 Est. Patient 15:44:38 CDT Shonna Parker APRN [facility]-46185 Level 4 Est. Patient 11:34:17 CDT Baltazar Childers MD [facility] CPT-14985 Level 3 Est. Patient 16:40:40 CDT Baltazar Childers MD [facility]-69446 Level 4 Est. Patient 10:41:24 CDT Baltazar Childers MD [facility]-30787 Level 4 Est. Patient 16:01:48 CDT Baltazar Childers MD [facility]-13881 Level 4 Est. Patient 16:54:07 CONTRACT RUNNER Baltazar Childers MD [facility]-24085 Level 4 Est. Patient 15:42:12 CDT Baltazar Childers MD [facility] CPT-10292 Level 4 Est. Patient 11:29:55 CDT Baltazar Childers MD [facility] CPT-68652 Level 4 Est. Patient 14:15:19 CDT Baltazar Childers MD [facility] [place]-79167 Level 4 Est. Patient 12:20:13 CDT Baltazar Childers MD [facility] CPT-95202 Level 4 Est. Patient 14:52:45 CONTRACT RUNNER Baltazar Childers MD [facility] CPT-80563 Level 4 Est. Patient 14:18:34 CONTRACT RUNNER Baltazar Childers MD [facility] CPT-97627 Level 4 Est. Patient 15:18:29 CDT Baltazar Childers MD [facility] CPT-96366 Level 3 Est. Patient 12:45:34 CDT Baltazar Childers MD [facility] CPT-29662 Level 3 Est. Patient 10:10:11 CDT Baltazar Childers MD [facility] CPT-32198 Level 3 Est. Patient 14:07:50 CDT Baltazar Chliders MD [facility] CPT-60931 Level 4 Est. Patient 12:26:10 CONTRACT RUNNER Baltazar Childers MD [facility] CPT-59655 Level 4 Est. Patient 14:45:38 CDT Baltazar Childers MD [facility] CPT-95718 Level 4 New Patient 12:30:48 CDT Baltazar hinton MD [facility] Procedures Code Procedure Name Date Entry Date Standard Desc ription CPT-000 Give Appropriate Flu Vaccine 12:25:14 CDT 2 CPT-75268 First Vx - Ix admin via ID I M or jet injects without counseling by physician 13:08:59 CDT CPT-11665 Fluzone Quadrivalent Intramuscular Suspe nsion 0.5 ML 13:08:59 CDT CPT-64674 Venipuncture Draw Fee 12:04:12 CDT CPT-45610 Lipid - LAB USE ONLY 17:39:15 CONTRACT RUNNER 9 CPT-42456 HGBA1C - LAB USE ONLY 17:39:15 CONTRACT RUNNER CPT-25799 CMP - LAB USE ONLY 17:39:14 CONTRACT RUNNER CPT-23523 Venipuncture Draw Fee 17:39:14 CONTRACT RUNNER CPT-95893 First Vx - Ix admin via ID I M or jet injects without counseling by physician 16:55:17 CONTRACT RUNNER CPT-13974 Fluzone Quadrivalent Intramuscular Suspe nsion 0.5 ML 16:55:17 CONTRACT RUNNER CPT-09422 Renal Panel - LAB USE ONLY 17:39:20 CDT 201 10/31/07 CPT-11778 CBC - LAB USE ONLY 17:39:20 CDT CPT-43434 Venipuncture Draw Fee 17:39:20 CDT CPT-13735 Venipuncture Draw Fee 14:33:30 CDT CPT-54682 Renal Panel - LAB USE ONLY 14:33:30 CDT 201 10/31/07 CPT-95353 CBC - LAB USE ONLY 14:33:29 CDT CPT-46904 Venipuncture Draw Fee 14:50:21 CONTRACT RUNNER CPT-94665 Immunization Single Admin 17:35:35 CDT 2014 CPT-71816 Fluzone Quadrivalent preservative free ( >=3yrs.) 17:35:35 CDT CPT-02943 Venipuncture Draw Fee 12:10:27 CONTRACT RUNNER CPT-41890 Fluzone Quadrivalent Intramuscular Suspe nsion 0.5 ML 10:49:13 CDT CPT-90483 First Vx Component - Ix admi n via ID IM or jet inj without physician counseling 15:17:19 CONTRACT RUNNER CPT-84571 Pneumovax 23 15:17:19 CONTRACT RUNNER CPT-78591 Pneumovax 14:52:45 CONTRACT RUNNER CPT-42389 Venipuncture Draw Fee 14:06:30 CONTRACT RUNNER CPT-000 Give Appropriate Flu Vaccine 14:18:34 CONTRACT RUNNER 2 CPT-46526 Administration single or combination vac cine inc oral 14:46:00 CONTRACT RUNNER CPT-34061 Influenza split virus > age 3 14:46:00 CONTRACT RUNNER CPT-OV Office Visit 19:13:16 CDT CPT-06351 Zostavax 18:41:56 CDT CPT-67474 Administration single or combination vac cine inc oral 12:56:39 CDT CPT-44416 Zoster Vaccine (Zostavax) 12:56:39 CDT 2012 CPT-66674 Venipuncture Draw Fee 10:58:57 CDT CPT-85848 Sono pelvis non OB uterus ovaries cervix 17:45:04 CDT CPT-05501 Sono retroperitoneal complete kidneys an d bladder 17:14:36 CDT CPT-OV Office Visit 14:59:38 CONTRACT RUNNER CPT-J1070 Depo Testosterone 100 mg 14:50:13 CDT 03/05 CPT-67270 Abx/Therapy Injection 14:50:13 CDT CPT-37510 Administration single or combination vac cine inc oral 14:34:43 CDT CPT-41031 Influenza split virus > age 3 14:34:43 CDT CPT-J1070 Depo Testosterone 100 mg 17:37:13 CDT 01/11 CPT-42778 Abx/Therapy Injection 17:37:13 CDT CPT-19829 Venipuncture Draw Fee 16:30:13 CDT CPT-78688 Venipuncture Draw Fee 16:29:43 CDT CPT-J1070 Depo Testosterone 100 mg 14:45:38 CDT 01/11
--- OUTSIDE RECORDS SUMMARY | 2019-10-27 11:51 | XMS REPORT | Clinical Summary ---
Author Author Admin, [facility] Address Unknown Phone Unavailable Allergies, Adverse Reactions, [...] ronary atherosclerosis of unspecified type of vessel, [place] or graft OTH NONSPC ABN FINDNG RAD&OTH EXM BODY STRUCTURE 793.99 11/08 Active Jessy Ruiz Other nonspecific (a bnormal) findings on radiological and other examinations of body structure NEED PROPH VACC&INOCULAT AGNST OTH SPEC DISEASE V05.8 0/ Active Elba Faux RMA Need for prophylacti [...] stage III 585.3 Active 201 10/25/03 Elba Faux RMA Chronic kidney disease, Stage III (moder [...] day as needed for pain TRAMADOL HCL 75661011884 No Longer Active Baltazar Childers MD Active ROBAXIN 500 MG ORAL TABLET Take 1.5 (one and one half) tabs once daily METHOCARBAMOL 02266026624 Active Baltazar Childers MD Active SYNTHROID 112 MCG ORAL TABLET Take one tablet a day LEVOTHYROXINE SODIUM 43216431793 Active Baltazar Childers MD Active TRUE METRIX AIR GLUCOSE METER DEVICE Use as directed BLOOD GLUCOSE MONITORING SUPPL 87595681607 Active Baltazar Childers MD Activ e TRUE METRIX BLOOD GLUCOSE TEST IN VITRO STRIP test blood sug ar BID Dx: E11.65 GLUCOSE BLOOD 10110798041 Active KENDALL Juarez Active NORTRIPTYLINE HCL 50 MG ORAL CAPSULE 1 twice a day for neuropathy 2 NORTRIPTYLINE HCL 49355036301 Active Baltazar Childers MD Acti ve ASPIRIN 81 MG TBEC Take one (1) tablet by mouth daily ASPIRIN 74946907858 Active Baltazar Childers MD Active GABAPENTIN 300 MG ORAL CAPSULE 1 three times a day 201 12/03/26 GABAPENTIN 60226603522 No Longer Active Baltazar Childers MD Activ e LISINOPRIL 20 MG ORAL TABLET 1 tablet by mouth daily at night 2016 LISINOPRIL 65725053618 Active Baltazar Childers MD Active ZITHROMAX Z-ISAIAS 250 MG ORAL TABLET Take two tablets to day and then 1 tablet daily for 4 days AZITHROMYCIN 19729420094 No Longer A ctive Baltazar Childers MD Active LANTUS SOLOSTAR 100 UNIT/ML SUBCUTANEOUS SOLUTION PEN- INJECTOR 30 units SC daily INSULIN GLARGINE 01298780037 Active Baltazar Childers MD Active AMLODIPINE BESYLATE 5 MG ORAL TABLET 1 tab daily for HTN AMLODIPINE BESYLATE 23556308703 Active Baltazar Childers MD Active GLIPIZIDE 10 MG ORAL TABLET take 2 tablets twice daily GLIPIZIDE 76268098947 Active Baltazar Childers MD Active SUCRALFATE 1 GM ORAL TABLET 1 four times a day to coat the stoma ch SUCRALFATE 69654344825 No Longer Active Baltazar Childers MD Active PEN NEEDLES 31G X 6 MM use 1 daily INSULIN PEN NE EDLE 62626954091 Active KENDALL Juarez Active TOUJEO SOLOSTAR 300 UNIT/ML SUBCUTANEOUS SOLUTION PEN- INJECTOR 10 units SC daily INSULIN GLARGINE 07170620368 No Longer Active Rola ARGUETA Active NAPROXEN SODIUM 220 MG ORAL TABLET 1 three times a day as needed NAPROXEN SODIUM 21572494370 No Longer Active Baltazar Childers MD Active ATORVASTATIN CALCIUM 20 MG ORAL TABLET Take 1 tab daily ATORVASTATIN CALCIUM 84206092728 Active Baltazar Childers MD A ctive FUROSEMIDE 40 MG ORAL TABLET Take one by mouth daily FUROSEMIDE 40928501573 Active Baltazar Childers MD Active LISINOPRIL 20 MG ORAL TABLET Take one by mouth daily at bedtime LISINOPRIL 39003592413 No Longer Active Baltazar Childers MD Active ONETOUCH ULTRA BLUE IN VITRO STRIP Test twice a day 07/11/11 GLUCOSE BLOOD 51619177561 No Longer Active Baltazar Childers MD Acti ve TRUEPLUS LANCETS 33G Test twice a day LANCETS 2532272 4346 Active Beth Carr, RMA Active TRUEDRAW LANCING DEVICE Test twice a day LANCET DEVICES 37761213516 Active Baltazar Childers MD Active TRUETRACK BLOOD GLUCOSE w/Device KIT Test twice a day BLOOD GLUCOSE MONITORING SUPPL 90683178431 Active Baltazar Childers MD Activ e HYDROCODONE-ACETAMINOPHEN 7.5-325 MG ORAL TABLET Take 1 tab every 6-8 hours PRN HYDROCODONE-ACETAMINOPHEN 62469116102 Active Baltazar Nickerson MD Active GABAPENTIN 300 MG ORAL CAPSULE 1 po qd x 2 days, then 1 po BID x 2 days, then 1 po TID GABAPENTIN 83071974498 No Longer Active Baltazar Childers MD Active NAPROXEN 500 MG ORAL TABLET 1 tablet by mouth twice daily NAPROXEN 86841092354 No Longer Active Baltazar Childers MD Active PROAIR HFA 108 (90 Base) MCG/ACT INHALATION AEROSOL SO LUTION 2 puffs four times a day as needed ALBUTEROL SULFATE 92306291608 Active Paul Childers MD Active DEPO-TESTOSTERONE 200 MG/ML INTRAMUSCULAR SOLUTION as directed TESTOSTERONE CYPIONATE 10820222444 No Longer Active Baltazar Childers MD Active LIPITOR 20 MG ORAL TABLET Take one by mouth daily in evening ATORVASTATIN CALCIUM 67728658710 No Longer Active Baltazar Childers MD Active CRESTOR 10 MG ORAL TABLET 1 by mouth every day ROSUVASTATIN CALCIUM 43729457334 No Longer Active Baltazar Childers MD Active PHENTERMINE HCL 37.5 MG ORAL TABLET Take one by mouth daily PHENTERMINE HCL 03737410877 No Longer Active Baltazar Childers MD Ac tive TIZANIDINE HCL 4 MG ORAL TABLET 1 daily as needed for muscle spa sm TIZANIDINE HCL 91017849717 No Longer Active Dawna Salazar RN Active [id number] 50-325-40 MG ORAL TABLET 1 fo ur times a day as needed for heacache [id number] 28254351403 Active KENDALL Juarez Active SUMATRIPTAN SUCCINATE 100 MG ORAL TABLET 1 tablet by m outh at onset of migraine as needed SUMATRIPTAN SUCCINATE 26463166680 Active KENDALL Restrepo Active LORATADINE 10 MG ORAL TABLET Take one by mouth daily LORATADINE 05903300564 Active Baltazar Childers MD Active OMEPRAZOLE 20 MG ORAL CAPSULE DELAYED RELEASE Take one by mouth jostin ly OMEPRAZOLE 07235978792 Active Baltazar Childers MD Active HYDROXYZINE HCL 25 MG ORAL TABLET Take one by mouth daily HYDROXYZINE HCL 23088979046 Active Baltazar Childers MD Active ALPRAZOLAM 1 MG ORAL TABLET 1 tablet [facility] 52478461698 Active Baltazar Childers MD Active METFORMIN HCL 1000 MG ORAL TABLET Take one by mouth twice daily METFORMIN HCL 70256880747 Active Baltazar Childers MD Active TIZANIDINE HCL 4 MG ORAL TABLET 1 daily as needed for muscle spa sm TIZANIDINE HCL 4 MG ORAL TABLET 112813 TIZANIDINE HCL Inactive PHENTERMINE HCL 37.5 MG ORAL TABLET Take one by mouth daily PHENTERMINE HCL 37.5 MG ORAL TABLET 399597 PHENTERMINE HCL Inac tive CRESTOR 10 MG ORAL TABLET 1 by mouth every day CRESTOR 10 MG ORAL TABLET 340479 ROSUVASTATIN CALCIUM Inactive LIPITOR 20 MG ORAL TABLET Take one by mouth daily in evening LIPITOR 20 MG ORAL TABLET 459354 ATORVASTATIN CALCIUM Inactive DEPO-TESTOSTERONE 200 MG/ML INTRAMUSCULAR SOLUTION as directed DEPO-TESTOSTERONE 200 MG/ML INTRAMUSCULAR SOLUTION 9286510 RUFINO TOSTERONE CYPIONATE Inactive NAPROXEN 500 MG ORAL TABLET 1 tablet by mouth twice daily NAPROXEN 500 MG ORAL TABLET 187977 NAPROXEN Inactive GABAPENTIN 300 MG ORAL CAPSULE 1 po qd x 2 days, then 1 po BID x 2 days, then 1 po TID GABAPENTIN 300 MG ORAL CAPSULE 036119 GABAP ENTIN Inactive ONETOUCH ULTRA BLUE IN VITRO STRIP Test twice a day 07/11/11 ONETOUCH ULTRA BLUE IN VITRO STRIP GLUCOSE BLOOD Inact amie NAPROXEN SODIUM 220 MG ORAL TABLET 1 three times a day as needed NAPROXEN SODIUM 220 MG ORAL TABLET 366001 NAPROXEN SODI UM Inactive TOUJEO SOLOSTAR 300 UNIT/ML SUBCUTANEOUS SOLUTION PEN- INJECTOR 10 units SC daily TOUJEO SOLOSTAR 300 UNIT/ML SUBCUTANEOUS SOLUTION PEN-INJECTOR INSULIN GLARGINE Inactive SUCRALFATE 1 GM ORAL TABLET 1 four times a day to coat the stoma ch SUCRALFATE 1 GM ORAL TABLET 264685 SUCRALFATE Inac tive GABAPENTIN 300 MG ORAL CAPSULE 1 three times a day 201 12/03/26 GABAPENTIN 300 MG ORAL CAPSULE 270645 GABAPENTIN Inactive TRAMADOL HCL 50 MG ORAL TABLET 1 twice a day as needed for pain TRAMADOL HCL 50 MG ORAL TABLET 804176 TRAMADOL HCL I nactive ZITHROMAX Z-ISAIAS 250 MG ORAL TABLET Take two tablets to day and then 1 tablet daily for 4 days ZITHROMAX Z-ISAIAS 250 MG ORAL TAB LET 476066 AZITHROMYCIN Inactive Immunizations Vaccine Administration Date Value Standard Floyd cription influenza immunization (Flu Vax) has been administered 05/11 Done according to patient influenza virus vaccine, unspecified for mulation pneumococcal immunization administered Pneumovax 23 [CVX33] pneumococcal polysaccharide vaccine, 23 valent Seasonal influenza vaccine, injectable, containing preservative, for > 3 years old (Afluria, FluLaval, Fluzone, Fluvirin, Fluarix, Agriflu(>= 18 yo)) Fluzone (>3 yrs.) [URS802] Influenza, seasonal, inject able Seasonal influenza vaccine, injectable, containing preservative, for > 3 years old (Afluria, FluLaval, Fluzone, Fluvirin, Fluarix, Agriflu(>= 18 yo)) Fluzone (>3 yrs.) [UXR310] Influenza, seasonal, inject able Vital Signs Date [...] - Chem istry sodium, serum 139 mmol/L 864-988 9728/06/26 potassium, serum 4.8 mmol/L 3.5-5.2 chloride, serum [...] 0.40 mg/dL 0.00-1.00 cholesterol, serum 218 mg/dL 475-638 3385/12/18 triglyceride, serum, fasting 357 mg/dL 30-200 HDL cholesterol, serum 49 mg/dL 32-60 LDL cholesterol, serum 103.00 mg/dL 5.00-130.00 sodium, serum 142 mmol/L 133-198 2052/12/18 carbon dioxide, venous blood 32.5 mmol/L 21.0-32 [...] negative Encounters Code Encounter Date Provider Facility CPT-54141 [id number] Vst-Est Level IV 15:30:55 TOOL GRINDER Charlie Childers MD [facility] CPT-71474 [id number] Vst-Est Level IV 13:49:06 C ELIOT Martinez PA-C [facility] CPT-98962 Level 4 Est. Patient 17:26:08 CDT Ann trujillo PA-C [facility] CPT-30798 [id number] Vst-Est Level V 14:26:27 CDT Aneudy Childers MD [facility]-34367 Level 4 Est. Patient 17:05:37 CDT Baltazar Childers MD [facility]-17043 Level 4 Est. Patient 16:21:19 TOOL GRINDER Baltazar Childers MD [facility]-94867 Level 4 Est. Patient 12:25:11 CDT Baltazar Childers MD [facility]-29860 Level 4 Est. Patient 14:22:31 CDT Baltazar Childers MD [facility]-63052 Level 4 Est. Patient 15:44:38 CDT Shonna Parker APRN [facility]-55528 Level 4 Est. Patient 11:34:17 CDT Baltazar Childers MD [facility] CPT-40474 Level 3 Est. Patient 16:40:40 CDT Baltazar Childers MD [facility]-54039 Level 4 Est. Patient 10:41:24 CDT Baltazar Childers MD [facility]-30519 Level 4 Est. Patient 16:01:48 CDT Baltazar Childers MD [facility]-63684 Level 4 Est. Patient 16:54:07 TOOL GRINDER Baltazar Childers MD [facility]-45902 Level 4 Est. Patient 15:42:12 CDT Baltazar Childers MD [facility] CPT-93084 Level 4 Est. Patient 11:29:55 CDT Baltazar Childers MD [facility] CPT-36897 Level 4 Est. Patient 14:15:19 CDT Baltazar Childers MD [facility] [place]-37278 Level 4 Est. Patient 12:20:13 CDT Baltazar Childers MD [facility] CPT-17231 Level 4 Est. Patient 14:52:45 TOOL GRINDER Baltazar Childers MD [facility] CPT-18102 Level 4 Est. Patient 14:18:34 TOOL GRINDER Baltazar Childers MD [facility] CPT-72784 Level 4 Est. Patient 15:18:29 CDT Baltazar Childers MD [facility] CPT-73729 Level 3 Est. Patient 12:45:34 CDT Baltazar Childers MD [facility] CPT-42696 Level 3 Est. Patient 10:10:11 CDT Baltazar Childers MD [facility] CPT-71454 Level 3 Est. Patient 14:07:50 CDT Baltazar Childers MD [facility] CPT-12244 Level 4 Est. Patient 12:26:10 TOOL GRINDER Baltazar Childers MD [facility] CPT-51180 Level 4 Est. Patient 14:45:38 CDT Baltazar Childers MD [facility] CPT-21542 Level 4 New Patient 12:30:48 CDT Baltazar hinton MD [facility] Procedures Code Procedure Name Date Entry Date Standard Desc ription CPT-000 Give Appropriate Flu Vaccine 12:25:14 CDT 2 CPT-01939 First Vx - Ix admin via ID I M or jet injects without counseling by physician 13:08:59 CDT CPT-08512 Fluzone Quadrivalent Intramuscular Suspe nsion 0.5 ML 13:08:59 CDT CPT-03905 Venipuncture Draw Fee 12:04:12 CDT CPT-02042 Lipid - LAB USE ONLY 17:39:15 TOOL GRINDER 9 CPT-77029 HGBA1C - LAB USE ONLY 17:39:15 TOOL GRINDER CPT-29986 CMP - LAB USE ONLY 17:39:14 TOOL GRINDER CPT-45764 Venipuncture Draw Fee 17:39:14 TOOL GRINDER CPT-80822 First Vx - Ix admin via ID I M or jet injects without counseling by physician 16:55:17 TOOL GRINDER CPT-51170 Fluzone Quadrivalent Intramuscular Suspe nsion 0.5 ML 16:55:17 TOOL GRINDER CPT-49706 Renal Panel - LAB USE ONLY 17:39:20 CDT 201 10/31/07 CPT-19039 CBC - LAB USE ONLY 17:39:20 CDT CPT-76212 Venipuncture Draw Fee 17:39:20 CDT CPT-91121 Venipuncture Draw Fee 14:33:30 CDT CPT-81821 Renal Panel - LAB USE ONLY 14:33:30 CDT 201 10/31/07 CPT-09230 CBC - LAB USE ONLY 14:33:29 CDT CPT-65738 Venipuncture Draw Fee 14:50:21 TOOL GRINDER CPT-02668 Immunization Single Admin 17:35:35 CDT 2014 CPT-11984 Fluzone Quadrivalent preservative free ( >=3yrs.) 17:35:35 CDT CPT-41835 Venipuncture Draw Fee 12:10:27 TOOL GRINDER CPT-86513 Fluzone Quadrivalent Intramuscular Suspe nsion 0.5 ML 10:49:13 CDT CPT-86863 First Vx Component - Ix admi n via ID IM or jet inj without physician counseling 15:17:19 TOOL GRINDER CPT-48091 Pneumovax 23 15:17:19 TOOL GRINDER CPT-39158 Pneumovax 14:52:45 TOOL GRINDER CPT-54046 Venipuncture Draw Fee 14:06:30 TOOL GRINDER CPT-000 Give Appropriate Flu Vaccine 14:18:34 TOOL GRINDER 2 CPT-19851 Administration single or combination vac cine inc oral 14:46:00 TOOL GRINDER CPT-45745 Influenza split virus > age 3 14:46:00 TOOL GRINDER CPT-OV Office Visit 19:13:16 CDT CPT-17362 Zostavax 18:41:56 CDT CPT-91547 Administration single or combination vac cine inc oral 12:56:39 CDT CPT-59561 Zoster Vaccine (Zostavax) 12:56:39 CDT 2012 CPT-35046 Venipuncture Draw Fee 10:58:57 CDT CPT-53982 Sono pelvis non OB uterus ovaries cervix 17:45:04 CDT CPT-21889 Sono retroperitoneal complete kidneys an d bladder 17:14:36 CDT CPT-OV Office Visit 14:59:38 TOOL GRINDER CPT-J1070 Depo Testosterone 100 mg 14:50:13 CDT 03/05 CPT-40795 Abx/Therapy Injection 14:50:13 CDT CPT-16674 Administration single or combination vac cine inc oral 14:34:43 CDT CPT-93727 Influenza split virus > age 3 14:34:43 CDT CPT-J1070 Depo Testosterone 100 mg 17:37:13 CDT 01/11 CPT-74509 Abx/Therapy Injection 17:37:13 CDT CPT-19672 Venipuncture Draw Fee 16:30:13 CDT CPT-48975 Venipuncture Draw Fee 16:29:43 CDT CPT-J1070 Depo Testosterone 100 mg 14:45:38 CDT 01/11
--- OUTSIDE RECORDS SUMMARY | 2019-10-27 11:51 | XMS REPORT | Clinical Summary ---
Author Author Admin, Elba Lance [employer] Address Unknown Phone Unavailable Allergies, Adverse Reactions, [...] ronary atherosclerosis of unspecified type of vessel, [place] or graft OTH NONSPC ABN FINDNG RAD&OTH [...] day as needed for pain TRAMADOL HCL 29655382589 No Longer Active Baltazar Childers MD Active ROBAXIN 500 MG ORAL TABLET Take 1.5 (one and one half) tabs once daily METHOCARBAMOL 65002573277 Active Baltazar Childers MD Active SYNTHROID 112 MCG ORAL TABLET Take one tablet a day LEVOTHYROXINE SODIUM 15107255723 Active Baltazar Childers MD Active TRUE METRIX AIR GLUCOSE METER DEVICE Use as directed BLOOD GLUCOSE MONITORING SUPPL 70159135798 Active Baltazar Childers MD Activ e TRUE METRIX BLOOD GLUCOSE TEST IN VITRO STRIP test blood sug ar BID Dx: E11.65 GLUCOSE BLOOD 28240603147 Active KENDALL Juarez Active NORTRIPTYLINE HCL 50 MG ORAL CAPSULE 1 twice a day for neuropathy 2 NORTRIPTYLINE HCL 75819702839 Active Baltazar Childers MD Acti ve ASPIRIN 81 MG TBEC Take one (1) tablet by mouth daily ASPIRIN 75878128697 Active Baltazar Childers MD Active GABAPENTIN 300 MG ORAL CAPSULE 1 three times a day 201 12/03/26 GABAPENTIN 09841457843 No Longer Active Baltazar Childers MD Activ e LISINOPRIL 20 MG ORAL TABLET 1 tablet by mouth daily at night 2016 LISINOPRIL 81111822834 Active Baltazar Childers MD Active ZITHROMAX Z-ISAIAS 250 MG ORAL TABLET Take two tablets to day and then 1 tablet daily for 4 days AZITHROMYCIN 86094019822 No Longer A ctive Baltazar Childers MD Active LANTUS SOLOSTAR 100 UNIT/ML SUBCUTANEOUS SOLUTION PEN- INJECTOR 30 units SC daily INSULIN GLARGINE 12045248023 Active Baltazar Chliders MD Active AMLODIPINE BESYLATE 5 MG ORAL TABLET 1 tab daily for HTN AMLODIPINE BESYLATE 00566101136 Active Baltazar Childers MD Active GLIPIZIDE 10 MG ORAL TABLET take 2 tablets twice daily GLIPIZIDE 69723532823 Active Baltazar Childers MD Active SUCRALFATE 1 GM ORAL TABLET 1 four times a day to coat the stoma ch SUCRALFATE 76948818257 No Longer Active Baltazar Childers MD Active PEN NEEDLES 31G X 6 MM use 1 daily INSULIN PEN NE EDLE 62777778253 Active KENDALL Juarez Active TOUJEO SOLOSTAR 300 UNIT/ML SUBCUTANEOUS SOLUTION PEN- INJECTOR 10 units SC daily INSULIN GLARGINE 66931123057 No Longer Active Rola ARGUETA Active NAPROXEN SODIUM 220 MG ORAL TABLET 1 three times a day as needed NAPROXEN SODIUM 39970261568 No Longer Active Baltazar Childers MD Active ATORVASTATIN CALCIUM 20 MG ORAL TABLET Take 1 tab daily ATORVASTATIN CALCIUM 86522451150 Active Baltazar Childers MD A ctive FUROSEMIDE 40 MG ORAL TABLET Take one by mouth daily FUROSEMIDE 06378282315 Active Baltazar Childers MD Active LISINOPRIL 20 MG ORAL TABLET Take one by mouth daily at bedtime LISINOPRIL 14481758626 No Longer Active Baltazar Childers MD Active ONETOUCH ULTRA BLUE IN VITRO STRIP Test twice a day 07/11/11 GLUCOSE BLOOD 74283559197 No Longer Active Baltazar Childers MD Acti ve TRUEPLUS LANCETS 33G Test twice a day LANCETS 8722191 2879 Active Beth Carr, RMA Active TRUEDRAW LANCING DEVICE Test twice a day LANCET DEVICES 38024760283 Active Baltazar Childers MD Active TRUETRACK BLOOD GLUCOSE w/Device KIT Test twice a day BLOOD GLUCOSE MONITORING SUPPL 16548440296 Active Baltazar Childers MD Activ e HYDROCODONE-ACETAMINOPHEN 7.5-325 MG ORAL TABLET Take 1 tab every 6-8 hours PRN HYDROCODONE-ACETAMINOPHEN 35632705667 Active Baltazar Nickerson MD Active GABAPENTIN 300 MG ORAL CAPSULE 1 po qd x 2 days, then 1 po BID x 2 days, then 1 po TID GABAPENTIN 83041794893 No Longer Active Baltazar Childers MD Active NAPROXEN 500 MG ORAL TABLET 1 tablet by mouth twice daily NAPROXEN 98469441248 No Longer Active Baltazar Childers MD Active PROAIR HFA 108 (90 Base) MCG/ACT INHALATION AEROSOL SO LUTION 2 puffs four times a day as needed ALBUTEROL SULFATE 70342588485 Active Paul Childers MD Active DEPO-TESTOSTERONE 200 MG/ML INTRAMUSCULAR SOLUTION as directed TESTOSTERONE CYPIONATE 66803477290 No Longer Active Baltazar Childers MD Active LIPITOR 20 MG ORAL TABLET Take one by mouth daily in evening ATORVASTATIN CALCIUM 89893054494 No Longer Active Baltazar Childers MD Active CRESTOR 10 MG ORAL TABLET 1 by mouth every day ROSUVASTATIN CALCIUM 14895902602 No Longer Active Baltazar Childers MD Active PHENTERMINE HCL 37.5 MG ORAL TABLET Take one by mouth daily PHENTERMINE HCL 55212431384 No Longer Active Baltazar Childers MD Ac tive TIZANIDINE HCL 4 MG ORAL TABLET 1 daily as needed for muscle spa sm TIZANIDINE HCL 96556395510 No Longer Active Dawna Salazar RN Active [id number] 50-325-40 MG ORAL TABLET 1 fo ur times a day as needed for heacache [id number] 18578492353 Active KENDALL Juarez Active SUMATRIPTAN SUCCINATE 100 MG ORAL TABLET 1 tablet by m outh at onset of migraine as needed SUMATRIPTAN SUCCINATE 90631190664 Active KENDALL Restrepo Active LORATADINE 10 MG ORAL TABLET Take one by mouth daily LORATADINE 30719104811 Active Baltazar Childers MD Active OMEPRAZOLE 20 MG ORAL CAPSULE DELAYED RELEASE Take one by mouth jostin ly OMEPRAZOLE 29582227977 Active Baltazar Childers MD Active HYDROXYZINE HCL 25 MG ORAL TABLET Take one by mouth daily HYDROXYZINE HCL 54223844148 Active Baltazar Childers MD Active ALPRAZOLAM 1 MG ORAL TABLET 1 tablet by mouth daily at [facility] ALPRAZOLAM 79709487253 Active Baltazar Childers MD Active METFORMIN HCL 1000 MG ORAL TABLET Take one by mouth twice daily METFORMIN HCL 05641448119 Active Baltazar Childers MD Active TIZANIDINE HCL 4 MG ORAL TABLET 1 daily as needed for muscle spa sm TIZANIDINE HCL 4 MG ORAL TABLET 071530 TIZANIDINE HCL Inactive PHENTERMINE HCL 37.5 MG ORAL TABLET Take one by mouth daily PHENTERMINE HCL 37.5 MG ORAL TABLET 753116 PHENTERMINE HCL Inac tive CRESTOR 10 MG ORAL TABLET 1 by mouth every day CRESTOR 10 MG ORAL TABLET 046919 ROSUVASTATIN CALCIUM Inactive LIPITOR 20 MG ORAL TABLET Take one by mouth daily in evening LIPITOR 20 MG ORAL TABLET 693627 ATORVASTATIN CALCIUM Inactive DEPO-TESTOSTERONE 200 MG/ML INTRAMUSCULAR SOLUTION as directed DEPO-TESTOSTERONE 200 MG/ML INTRAMUSCULAR SOLUTION 0893654 RUFINO TOSTERONE CYPIONATE Inactive NAPROXEN 500 MG ORAL TABLET 1 tablet by mouth twice daily NAPROXEN 500 MG ORAL TABLET 609825 NAPROXEN Inactive GABAPENTIN 300 MG ORAL CAPSULE 1 po qd x 2 days, then 1 po BID x 2 days, then 1 po TID GABAPENTIN 300 MG ORAL CAPSULE 075503 GABAP ENTIN Inactive ONETOUCH ULTRA BLUE IN VITRO STRIP Test twice a day 07/11/11 ONETOUCH ULTRA BLUE IN VITRO STRIP GLUCOSE BLOOD Inact amie NAPROXEN SODIUM 220 MG ORAL TABLET 1 three times a day as needed NAPROXEN SODIUM 220 MG ORAL TABLET 157185 NAPROXEN SODI UM Inactive TOUJEO SOLOSTAR 300 UNIT/ML SUBCUTANEOUS SOLUTION PEN- INJECTOR 10 units SC daily TOUJEO SOLOSTAR 300 UNIT/ML SUBCUTANEOUS SOLUTION PEN-INJECTOR INSULIN GLARGINE Inactive SUCRALFATE 1 GM ORAL TABLET 1 four times a day to coat the stoma ch SUCRALFATE 1 GM ORAL TABLET 522550 SUCRALFATE Inac tive GABAPENTIN 300 MG ORAL CAPSULE 1 three times a day 201 12/03/26 GABAPENTIN 300 MG ORAL CAPSULE 751644 GABAPENTIN Inactive TRAMADOL HCL 50 MG ORAL TABLET 1 twice a day as needed for pain TRAMADOL HCL 50 MG ORAL TABLET 988046 TRAMADOL HCL I nactive ZITHROMAX Z-ISAIAS 250 MG ORAL TABLET Take two tablets to day and then 1 tablet daily for 4 days ZITHROMAX Z-ISAIAS 250 MG ORAL TAB LET 561543 AZITHROMYCIN Inactive Immunizations Vaccine Administration Date Value Standard Floyd cription influenza immunization (Flu Vax) has been administered 05/11 Done according to patient influenza virus vaccine, unspecified for mulation pneumococcal immunization administered Pneumovax 23 [CVX33] pneumococcal polysaccharide vaccine, 23 valent Seasonal influenza vaccine, injectable, containing preservative, for > 3 years old (Afluria, FluLaval, Fluzone, Fluvirin, Fluarix, Agriflu(>= 18 yo)) Fluzone (>3 yrs.) [HYE404] Influenza, seasonal, inject able Seasonal influenza vaccine, injectable, containing preservative, for > 3 years old (Afluria, FluLaval, Fluzone, Fluvirin, Fluarix, Agriflu(>= 18 yo)) Fluzone (>3 yrs.) [PIL757] Influenza, seasonal, inject able Vital Signs Date [...] - Chem istry sodium, serum 139 mmol/L 195-743 8405/06/26 potassium, serum 4.8 mmol/L 3.5-5.2 chloride, serum [...] 0.40 mg/dL 0.00-1.00 cholesterol, serum 218 mg/dL 535-733 5397/12/18 triglyceride, serum, fasting 357 mg/dL 30-200 HDL cholesterol, serum 49 mg/dL 32-60 LDL cholesterol, serum 103.00 mg/dL 5.00-130.00 sodium, serum 142 mmol/L 934-066 8148/12/18 carbon dioxide, venous blood 32.5 mmol/L 21.0-32 [...] negative Encounters Code Encounter Date Provider Facility CPT-20614 [id number] Vst-Est Level IV 15:30:55 [employer]OWN P[employer]NCER Charlie Childers MD [facility] CPT-75190 [id number] Vst-Est Level IV 13:49:06 C ELIOT Martinez PA-C [facility] CPT-00611 Level 4 Est. Patient 17:26:08 CDT Ann trujillo PA-C [facility] CPT-30583 [id number] Vst-Est Level V 14:26:27 CDT Aneudy Childers MD [facility]-80663 Level 4 Est. Patient 17:05:37 CDT Baltazar Childers MD [facility]-85320 Level 4 Est. Patient 16:21:19 [employer]NCER Baltazar Childers MD [facility]-29042 Level 4 Est. Patient 12:25:11 CDT Baltazar Childers MD [facility]-92717 Level 4 Est. Patient 14:22:31 CDT Baltazar Childers MD [facility]-89324 Level 4 Est. Patient 15:44:38 CDT Shonna Parker APRN [facility]-99965 Level 4 Est. Patient 11:34:17 CDT Baltazar Childers MD [facility] CPT-64563 Level 3 Est. Patient 16:40:40 CDT Baltazar Childers MD [facility]-94459 Level 4 Est. Patient 10:41:24 CDT Baltazar Childers MD [facility]-16424 Level 4 Est. Patient 16:01:48 CDT Baltazar Childers MD [facility]-39800 Level 4 Est. Patient 16:54:07 [employer] P[employer]NCER Baltazar Childers MD [facility]-58809 Level 4 Est. Patient 15:42:12 CDT Baltazar Childers MD [facility] CPT-63232 Level 4 Est. Patient 11:29:55 CDT Baltazar Childers MD [facility] CPT-85282 Level 4 Est. Patient 14:15:19 CDT Baltazar Childers MD [facility]-34104 Level 4 Est. Patient 12:20:13 CDT Baltazar Childers MD [facility] CPT-07936 Level 4 Est. Patient 14:52:45 [employer] CROWN POUNCER Baltazar Childers MD [facility] CPT-57916 Level 4 Est. Patient 14:18:34 [employer] P[employer]NCER Baltazar Childers MD [facility] CPT-91365 Level 4 Est. Patient 15:18:29 CDT Baltazar Childers MD [facility] CPT-20474 Level 3 Est. Patient 12:45:34 CDT Baltazar Childers MD [facility] CPT-08105 Level 3 Est. Patient 10:10:11 CDT Baltazar Childers MD [facility] CPT-89036 Level 3 Est. Patient 14:07:50 CDT Baltazar Childers MD [facility] CPT-42478 Level 4 Est. Patient 12:26:10 [employer] P[employer]NCER Baltazar Childers MD [facility] CPT-20519 Level 4 Est. Patient 14:45:38 CDT Baltazar Childers MD [facility] CPT-17986 Level 4 New Patient 12:30:48 CDT Baltazar hinton MD [facility] Procedures Code Procedure Name Date Entry Date Standard Desc ription CPT-000 Give Appropriate Flu Vaccine 12:25:14 CDT 2 CPT-92688 First Vx - Ix admin via ID I M or jet injects without counseling by physician 13:08:59 CDT CPT-50827 Fluzone Quadrivalent Intramuscular Suspe nsion 0.5 ML 13:08:59 CDT CPT-61584 Venipuncture Draw Fee 12:04:12 CDT CPT-93600 Lipid - LAB USE ONLY 17:39:15 [employer] CROWN POUNCER 9 CPT-62158 HGBA1C - LAB USE ONLY 17:39:15 [employer] P[employer]NCER CPT-55420 CMP - LAB USE ONLY 17:39:14 [employer] P[employer]NCER CPT-93897 Venipuncture Draw Fee 17:39:14 [employer] CROWN POUNCER CPT-27360 First Vx - Ix admin via ID I M or jet injects without counseling by physician 16:55:17 [employer] CROWN POUNCER CPT-54730 Fluzone Quadrivalent Intramuscular Suspe nsion 0.5 ML 16:55:17 [employer] P[employer]NCER CPT-61543 Renal Panel - LAB USE ONLY 17:39:20 CDT 201 10/31/07 CPT-96415 CBC - LAB USE ONLY 17:39:20 CDT CPT-68535 Venipuncture Draw Fee 17:39:20 CDT CPT-04896 Venipuncture Draw Fee 14:33:30 CDT CPT-22570 Renal Panel - LAB USE ONLY 14:33:30 CDT 201 10/31/07 CPT-00142 CBC - LAB USE ONLY 14:33:29 CDT CPT-81217 Venipuncture Draw Fee 14:50:21 [employer] P[employer]NCER CPT-88971 Immunization Single Admin 17:35:35 CDT 2014 CPT-78851 Fluzone Quadrivalent preservative free ( >=3yrs.) 17:35:35 CDT CPT-31268 Venipuncture Draw Fee 12:10:27 [employer] POUNCER CPT-15169 Fluzone Quadrivalent Intramuscular Suspe nsion 0.5 ML 10:49:13 CDT CPT-00304 First Vx Component - Ix admi n via ID IM or jet inj without physician counseling 15:17:19 [employer] POUNCER CPT-09963 Pneumovax 23 15:17:19 [employer] POUNCER CPT-82102 Pneumovax 14:52:45 [employer] POUNCER CPT-93173 Venipuncture Draw Fee 14:06:30 [employer] POUNCER CPT-000 Give Appropriate Flu Vaccine 14:18:34 [employer] POUNCER 2 CPT-86927 Administration single or combination vac cine inc oral 14:46:00 [employer] POUNCER CPT-96990 Influenza split virus > age 3 14:46:00 [employer] P[employer]NCER CPT-OV Office Visit 19:13:16 CDT CPT-86176 Zostavax 18:41:56 CDT CPT-16202 Administration single or combination vac cine inc oral 12:56:39 CDT CPT-98551 Zoster Vaccine (Zostavax) 12:56:39 CDT 2012 CPT-14969 Venipuncture Draw Fee 10:58:57 CDT CPT-31951 Sono pelvis non OB uterus ovaries cervix 17:45:04 CDT CPT-69156 Sono retroperitoneal complete kidneys an d bladder 17:14:36 CDT CPT-OV Office Visit 14:59:38 [employer] POUNCER CPT-J1070 Depo Testosterone 100 mg 14:50:13 CDT 03/05 CPT-80489 Abx/Therapy Injection 14:50:13 CDT CPT-20788 Administration single or combination vac cine inc oral 14:34:43 CDT CPT-23679 Influenza split virus > age 3 14:34:43 CDT CPT-J1070 Depo Testosterone 100 mg 17:37:13 CDT 01/11 CPT-67644 Abx/Therapy Injection 17:37:13 CDT CPT-50500 Venipuncture Draw Fee 16:30:13 CDT CPT-35101 Venipuncture Draw Fee 16:29:43 CDT CPT-J1070 Depo Testosterone 100 mg 14:45:38 CDT 01/11
--- OUTSIDE RECORDS SUMMARY | 2019-10-27 11:52 | XMS REPORT | Clinical Summary ---
Author Author Admin, Elba Lance Michelle [facility] Address Unknown Phone Unavailable Allergies, [...] of status migrainosus HYPERLIPIDEMIA 272.4 Refinement Baltazar Cihlders MD Other and unspecified hyperlipidemia Familial hypercholesterolemia [...] ronary atherosclerosis of unspecified type of vessel, [place] or graft OTH NONSPC ABN FINDNG [...] day as needed for pain TRAMADOL HCL 41207216795 No Longer Active Baltazar Childers MD Active ROBAXIN 500 MG ORAL TABLET Take 1.5 (one and one half) tabs once daily METHOCARBAMOL 42547662225 Active Baltazar Childers MD Active SYNTHROID 112 MCG ORAL TABLET Take one tablet a day LEVOTHYROXINE SODIUM 31534429998 Active Baltazar Childers MD Active TRUE METRIX AIR GLUCOSE METER DEVICE Use as directed BLOOD GLUCOSE MONITORING SUPPL 66497881689 Active Baltazar Childers MD Activ e TRUE METRIX BLOOD GLUCOSE TEST IN VITRO STRIP test blood sug ar BID Dx: E11.65 GLUCOSE BLOOD 74394157892 Active KENDALL Juarez Active NORTRIPTYLINE HCL 50 MG ORAL CAPSULE 1 twice a day for neuropathy 2 NORTRIPTYLINE HCL 59462458495 Active Baltazar Childers MD Acti ve ASPIRIN 81 MG TBEC Take one (1) tablet by mouth daily ASPIRIN 09972223405 Active Baltazar Childers MD Active GABAPENTIN 300 MG ORAL CAPSULE 1 three times a day 201 12/03/26 GABAPENTIN 81474394557 No Longer Active Baltazar Childers MD Activ e LISINOPRIL 20 MG ORAL TABLET 1 tablet by mouth daily at night 2016 LISINOPRIL 77305700230 Active Baltazar Childers MD Active ZITHROMAX Z-ISAIAS 250 MG ORAL TABLET Take two tablets to day and then 1 tablet daily for 4 days AZITHROMYCIN 44322480736 No Longer A ctive Baltazar Childers MD Active LANTUS SOLOSTAR 100 UNIT/ML SUBCUTANEOUS SOLUTION PEN- INJECTOR 30 units SC daily INSULIN GLARGINE 00873398538 Active Baltazar Childers MD Active AMLODIPINE BESYLATE 5 MG ORAL TABLET 1 tab daily for HTN AMLODIPINE BESYLATE 96669124898 Active Baltazar Childers MD Active GLIPIZIDE 10 MG ORAL TABLET take 2 tablets twice daily GLIPIZIDE 13020526815 Active Baltazar Childers MD Active SUCRALFATE 1 GM ORAL TABLET 1 four times a day to coat the stoma ch SUCRALFATE 37444014886 No Longer Active Baltazar Childers MD Active PEN NEEDLES 31G X 6 MM use 1 daily INSULIN PEN NE EDLE 74144540152 Active KENDALL Juarez Active TOUJEO SOLOSTAR 300 UNIT/ML SUBCUTANEOUS SOLUTION PEN- INJECTOR 10 units SC daily INSULIN GLARGINE 12086916159 No Longer Active Rola ARGUETA Active NAPROXEN SODIUM 220 MG ORAL TABLET 1 three times a day as needed NAPROXEN SODIUM 92988486566 No Longer Active Baltazar Childers MD Active ATORVASTATIN CALCIUM 20 MG ORAL TABLET Take 1 tab daily ATORVASTATIN CALCIUM 13185196388 Active Baltazar Childers MD A ctive FUROSEMIDE 40 MG ORAL TABLET Take one by mouth daily FUROSEMIDE 21126283046 Active Baltazar Chiledrs MD Active LISINOPRIL 20 MG ORAL TABLET Take one by mouth daily at bedtime LISINOPRIL 67772892352 No Longer Active Baltazar Childers MD Active ONETOUCH ULTRA BLUE IN VITRO STRIP Test twice a day 07/11/11 GLUCOSE BLOOD 88290341694 No Longer Active Baltazar Childers MD Acti ve TRUEPLUS LANCETS 33G Test twice a day LANCETS 6894222 7450 Active Beth Acrr, RMA Active TRUEDRAW LANCING DEVICE Test twice a day LANCET DEVICES 47510186930 Active Baltazar Childers MD Active TRUETRACK BLOOD GLUCOSE w/Device KIT Test twice a day BLOOD GLUCOSE MONITORING SUPPL 33621551469 Active Baltazar Childers MD Activ e HYDROCODONE-ACETAMINOPHEN 7.5-325 MG ORAL TABLET Take 1 tab every 6-8 hours PRN HYDROCODONE-ACETAMINOPHEN 43614964572 Active Baltazar Nickerson MD Active GABAPENTIN 300 MG ORAL CAPSULE 1 po qd x 2 days, then 1 po BID x 2 days, then 1 po TID GABAPENTIN 44161346312 No Longer Active Baltazar Childers MD Active NAPROXEN 500 MG ORAL TABLET 1 tablet by mouth twice daily NAPROXEN 18997466489 No Longer Active Baltazar Childers MD Active PROAIR HFA 108 (90 Base) MCG/ACT INHALATION AEROSOL SO LUTION 2 puffs four times a day as needed ALBUTEROL SULFATE 68772948786 Active Paul Childers MD Active DEPO-TESTOSTERONE 200 MG/ML INTRAMUSCULAR SOLUTION as directed TESTOSTERONE CYPIONATE 59903355774 No Longer Active Baltazar Childers MD Active LIPITOR 20 MG ORAL TABLET Take one by mouth daily in evening ATORVASTATIN CALCIUM 60604831850 No Longer Active Baltazar Childers MD Active CRESTOR 10 MG ORAL TABLET 1 by mouth every day ROSUVASTATIN CALCIUM 14282257745 No Longer Active Baltazar Childers MD Active PHENTERMINE HCL 37.5 MG ORAL TABLET Take one by mouth daily PHENTERMINE HCL 19675747856 No Longer Active Baltazar Childers MD Ac tive TIZANIDINE HCL 4 MG ORAL TABLET 1 daily as needed for muscle spa sm TIZANIDINE HCL 20100048761 No Longer Active Dwana Salazar RN Active [id number] 50-325-40 MG ORAL TABLET 1 fo ur times a day as needed for heacache [id number]-[id number] 55335422080 Active KENDALL Juarez Active SUMATRIPTAN SUCCINATE 100 MG ORAL TABLET 1 tablet by m outh at onset of migraine as needed SUMATRIPTAN SUCCINATE 69974557179 Active Beth trujillo, KENDALL Active LORATADINE 10 MG ORAL TABLET Take one by mouth daily LORATADINE 13118061814 Active Baltazar Childers MD Active OMEPRAZOLE 20 MG ORAL CAPSULE DELAYED RELEASE Take one by mouth jostin ly OMEPRAZOLE 94522853306 Active Baltazar Childers MD Active HYDROXYZINE HCL 25 MG ORAL TABLET Take one by mouth daily HYDROXYZINE HCL 07558902544 Active Baltazar Childers MD Active ALPRAZOLAM 1 MG ORAL TABLET 1 [facility] 37842384328 Active Baltazar Childers MD Active METFORMIN HCL 1000 MG ORAL TABLET Take one by mouth twice daily METFORMIN HCL 89978066507 Active Baltazar Childers MD Active TIZANIDINE HCL 4 MG ORAL TABLET 1 daily as needed for muscle spa sm TIZANIDINE HCL 4 MG ORAL TABLET 460580 TIZANIDINE HCL Inactive PHENTERMINE HCL 37.5 MG ORAL TABLET Take one by mouth daily PHENTERMINE HCL 37.5 MG ORAL TABLET 453875 PHENTERMINE HCL Inac tive CRESTOR 10 MG ORAL TABLET 1 by mouth every day CRESTOR 10 MG ORAL TABLET 524097 ROSUVASTATIN CALCIUM Inactive LIPITOR 20 MG ORAL TABLET Take one by mouth daily in evening LIPITOR 20 MG ORAL TABLET 886302 ATORVASTATIN CALCIUM Inactive DEPO-TESTOSTERONE 200 MG/ML INTRAMUSCULAR SOLUTION as directed DEPO-TESTOSTERONE 200 MG/ML INTRAMUSCULAR SOLUTION 1617788 RUFINO TOSTERONE CYPIONATE Inactive NAPROXEN 500 MG ORAL TABLET 1 tablet by mouth twice daily NAPROXEN 500 MG ORAL TABLET 969170 NAPROXEN Inactive GABAPENTIN 300 MG ORAL CAPSULE 1 po qd x 2 days, then 1 po BID x 2 days, then 1 po TID GABAPENTIN 300 MG ORAL CAPSULE 961491 GABAP ENTIN Inactive ONETOUCH ULTRA BLUE IN VITRO STRIP Test twice a day 07/11/11 ONETOUCH ULTRA BLUE IN VITRO STRIP GLUCOSE BLOOD Inact aime NAPROXEN SODIUM 220 MG ORAL TABLET 1 three times a day as needed NAPROXEN SODIUM 220 MG ORAL TABLET 521136 NAPROXEN SODI UM Inactive TOUJEO SOLOSTAR 300 UNIT/ML SUBCUTANEOUS SOLUTION PEN- INJECTOR 10 units SC daily TOUJEO SOLOSTAR 300 UNIT/ML SUBCUTANEOUS SOLUTION PEN-INJECTOR INSULIN GLARGINE Inactive SUCRALFATE 1 GM ORAL TABLET 1 four times a day to coat the stoma ch SUCRALFATE 1 GM ORAL TABLET 179556 SUCRALFATE Inac tive GABAPENTIN 300 MG ORAL CAPSULE 1 three times a day 201 12/03/26 GABAPENTIN 300 MG ORAL CAPSULE 314253 GABAPENTIN Inactive TRAMADOL HCL 50 MG ORAL TABLET 1 twice a day as needed for pain TRAMADOL HCL 50 MG ORAL TABLET 158763 TRAMADOL HCL I nactive ZITHROMAX Z-ISAIAS 250 MG ORAL TABLET Take two tablets to day and then 1 tablet daily for 4 days ZITHROMAX Z-ISAIAS 250 MG ORAL TAB LET 492434 AZITHROMYCIN Inactive Immunizations Vaccine Administration Date Value Standard Floyd cription influenza immunization (Flu Vax) has been administered 05/11 Done according to patient influenza virus vaccine, unspecified for mulation pneumococcal immunization administered Pneumovax 23 [CVX33] pneumococcal polysaccharide vaccine, 23 valent Seasonal influenza vaccine, injectable, containing preservative, for > 3 years old (Afluria, FluLaval, Fluzone, Fluvirin, Fluarix, Agriflu(>= 18 yo)) Fluzone (>3 yrs.) [FAA703] Influenza, seasonal, inject able Seasonal influenza vaccine, injectable, containing preservative, for > 3 years old (Afluria, FluLaval, Fluzone, Fluvirin, Fluarix, Agriflu(>= 18 yo)) Fluzone (>3 yrs.) [SCN480] Influenza, seasonal, inject able Vital Signs Date [...] 236 [lb_av] Weight Measure d blood pressure, diastolic 77 mm[Hg] BP [place] blood pressure, systolic 116 mm[Hg] BP sys height E&M 66.5 [in_us] Bdy height pulse rate E&M 91 /min Heart rate temperature E&M 97.3 [degF] Body temp erature weight E&M 233.5 [lb_av] Weight Measure d Diagnostic Results Date Name Value Unit Range Description Lab Report: Basic Metabolic Panel - Chem istry sodium, serum 139 mmol/L 725-462 2873/06/26 potassium, serum 4.8 mmol/L 3.5-5.2 chloride, serum [...] 8.5 % 4.3-6.0 sodium, serum 142 mmol/L 204-340 0863/12/18 carbon dioxide, venous blood 32.5 mmol/L 21.0-32 .0 potassium, serum 4.4 mmol/L 3.5-5.2 chloride, serum 101 mmol/L 98-107 blood glucose 150 mg/dL 65-95 urea nitrogen, blood 18 mg/dL 7-18 creatinine, serum 1.74 mg/dL 0.60-1.30 Estimated Glomerular Filtration Rate (calc) 32 (?) mL/min/1.73m2 = OR > 60 mL/min alanine aminotransferase (SGPT), serum 37 U/L -78 aspartate aminotransferase (SGOT), serum 17 U/L 15-37 calcium, serum 9.2 mg/dL 8.5-10.1 bilirubin, serum, total 0.40 mg/dL 0.00-1.00 cholesterol, serum 218 mg/dL 778-571 9173/12/18 triglyceride, serum, fasting 357 mg/dL 30-200 HDL [...] Lab Alkaline phosphatase 63 50-136 Lab Report: Lipid Panel, Thyroid Stimula ting Hormone (L) - Chemistry cholesterol, serum 209 mg/dL 521-267 7033/12/27 triglyceride, serum, fasting 329 mg/dL 30-200 HDL cholesterol, serum 56 mg/dL 32-60 LDL cholesterol, serum 87 mg/dL 0-130 TSH 3.60 m[iU]/mL 0.36-3.74 Lab Report: Thyroid Stimulating Hormone (L) - Chemistry TSH 8.56 m[iU]/mL 0.36-3.74 Office Visit: Meds Check - Toxicology drug screen, urine, qualitative negative Encounters Code Encounter Date Provider Facility CPT-46121 [id number] Vst-Est Level IV 15:30:55 JANITORIAL SUPERVISOR Charlie Childers MD [facility] CPT-32878 [id number]-[id number] Vst-Est Level IV 13:49:06 [facility] Level 4 Est. Patient 17:26:[address] [facility]-26469 [id number] Vst-Est Level V 14:26:27 CDT Aneudy Childers MD [facility] CPT-34514 Level 4 Est. Patient 17:05:37 CDT Baltazar Childers MD [facility] CPT-25027 Level 4 Est. Patient 16:21:19 JANITORIAL SUPERVISOR Baltazar Childers MD [facility] CPT-61197 Level 4 Est. Patient 12:25:11 CDT Baltazar Childers MD [facility] CPT-34620 Level 4 Est. Patient 14:22:31 CDT Baltazar Childers MD [facility] CPT-50174 Level 4 Est. Patient 15:44:38 CDT Shonna Parker APRN [facility] CPT-80541 Level 4 Est. Patient 11:34:17 CDT Baltazar Childers MD [facility] CPT-07499 Level 3 Est. Patient 16:40:40 CDT Baltazar Childers MD [facility] CPT-01838 Level 4 Est. Patient 10:41:24 CDT Baltazar Childers MD [facility] CPT-79886 Level 4 Est. Patient 16:01:48 CDT Baltazar Childers MD [facility] CPT-88784 Level 4 Est. Patient 16:54:07 JANITORIAL SUPERVISOR Baltazar Childers MD [facility] CPT-72220 Level 4 Est. Patient 15:42:12 CDT Baltazar Childers MD [facility] CPT-91700 Level 4 Est. Patient 11:29:55 CDT Baltazar Childers MD [facility] CPT-35691 Level 4 Est. Patient 14:15:19 CDT Baltazar Childers MD [facility] CPT-50825 Level 4 Est. Patient 12:20:13 CDT Baltazar Childers MD [facility] CPT-19152 Level 4 Est. Patient 14:52:45 JANITORIAL SUPERVISOR Baltazar Childers MD [facility] CPT-67337 Level 4 Est. Patient 14:18:34 JANITORIAL SUPERVISOR Baltazar Childers MD [facility] CPT-71254 Level 4 Est. Patient 15:18:29 CDT Baltazar Childers MD [facility] CPT-96756 Level 3 Est. Patient 12:45:34 CDT Baltazar Childers MD [facility] CPT-07392 Level 3 Est. Patient 10:10:11 CDT Baltazar Childers MD [facility] CPT-19288 Level 3 Est. Patient 14:07:50 CDT Baltazar Childers MD [facility] CPT-10582 Level 4 Est. Patient 12:26:10 JANITORIAL SUPERVISOR Baltazar Childers MD [facility] CPT-62308 Level 4 Est. Patient 14:45:38 CDT Baltazar Childers MD [facility] CPT-08841 Level 4 New Patient 12:30:48 CDT Baltazar hinton MD [facility] Procedures Code Procedure Name Date Entry Date Standard Desc ription CPT-000 Give Appropriate Flu Vaccine 12:25:14 CDT 2 CPT-28896 First Vx - Ix admin via ID I M or jet injects without counseling by physician 13:08:59 CDT CPT-27963 Fluzone Quadrivalent Intramuscular Suspe nsion 0.5 ML 13:08:59 CDT CPT-23922 Venipuncture Draw Fee 12:04:12 CDT CPT-43561 Lipid - LAB USE ONLY 17:39:15 JANITORIAL SUPERVISOR 9 CPT-07072 HGBA1C - LAB USE ONLY 17:39:15 JANITORIAL SUPERVISOR CPT-55174 CMP - LAB USE ONLY 17:39:14 JANITORIAL SUPERVISOR CPT-43786 Venipuncture Draw Fee 17:39:14 JANITORIAL SUPERVISOR CPT-24457 First Vx - Ix admin via ID I M or jet injects without counseling by physician 16:55:17 JANITORIAL SUPERVISOR CPT-65463 Fluzone Quadrivalent Intramuscular Suspe nsion 0.5 ML 16:55:17 JANITORIAL SUPERVISOR CPT-86047 Renal Panel - LAB USE ONLY 17:39:20 CDT 201 10/31/07 CPT-86730 CBC - LAB USE ONLY 17:39:20 CDT CPT-73490 Venipuncture Draw Fee 17:39:20 CDT CPT-22157 Venipuncture Draw Fee 14:33:30 CDT CPT-08969 Renal Panel - LAB USE ONLY 14:33:30 CDT 201 10/31/07 CPT-96461 CBC - LAB USE ONLY 14:33:29 CDT CPT-75390 Venipuncture Draw Fee 14:50:21 JANITORIAL SUPERVISOR CPT-73798 Immunization Single Admin 17:35:35 CDT 2014 CPT-36437 Fluzone Quadrivalent preservative free ( >=3yrs.) 17:35:35 CDT CPT-44264 Venipuncture Draw Fee 12:10:27 JANITORIAL SUPERVISOR CPT-73218 Fluzone Quadrivalent Intramuscular Suspe nsion 0.5 ML 10:49:13 CDT CPT-25733 First Vx Component - Ix admi n via ID IM or jet inj without physician counseling 15:17:19 JANITORIAL SUPERVISOR CPT-00839 Pneumovax 15:17:19 JANITORIAL SUPERVISOR CPT-44446 Pneumovax 14:52:45 JANITORIAL SUPERVISOR CPT-88006 Venipuncture Draw Fee 14:06:30 JANITORIAL SUPERVISOR CPT-000 Give Appropriate Flu Vaccine 14:18:34 JANITORIAL SUPERVISOR 2 CPT-34280 Administration single or combination vac cine inc oral 14:46:00 JANITORIAL SUPERVISOR CPT-17738 Influenza split virus > age 3 14:46:00 JANITORIAL SUPERVISOR CPT-OV Office Visit 19:13:16 CDT CPT-17224 Zostavax 18:41:56 CDT CPT-77395 Administration single or combination vac cine inc oral 12:56:39 CDT CPT-05633 Zoster Vaccine (Zostavax) 12:56:39 CDT 2012 CPT-86287 Venipuncture Draw Fee 10:58:57 CDT CPT-23776 Sono pelvis non OB uterus ovaries cervix 17:45:04 CDT CPT-19765 Sono retroperitoneal complete kidneys an d bladder 17:14:36 CDT CPT-OV Office Visit 14:59:38 JANITORIAL SUPERVISOR CPT-J1070 Depo Testosterone 100 mg 14:50:13 CDT 03/05 CPT-74802 Abx/Therapy Injection 14:50:13 CDT CPT-67990 Administration single or combination vac cine inc oral 14:34:43 CDT CPT-69459 Influenza split virus > age 3 14:34:43 CDT CPT-J1070 Depo Testosterone 100 mg 17:37:13 CDT 01/11 CPT-28412 Abx/Therapy Injection 17:37:13 CDT CPT-03683 Venipuncture Draw Fee 16:30:13 CDT CPT-30820 Venipuncture Draw Fee 16:29:43 CDT CPT-J1070 Depo Testosterone 100 mg 14:45:38 CDT 01/11
--- OUTSIDE RECORDS SUMMARY | 2019-10-27 11:52 | XMS REPORT | Clinical Summary ---
Author Author Admin, Elba Lance Michelle [facility] Address Unknown Phone Unavailable [...] ronary atherosclerosis of unspecified type of vessel, cahto or graft OTH NONSPC ABN FINDNG RAD&OTH [...] day as needed for pain TRAMADOL HCL 56364340233 No Longer Active Baltazar Childers MD Active ROBAXIN 500 MG ORAL TABLET Take 1.5 (one and one half) tabs once daily METHOCARBAMOL 29978470079 Active Baltazar Childers MD Active SYNTHROID 112 MCG ORAL TABLET Take one tablet a day LEVOTHYROXINE SODIUM 42024383737 Active Baltazar Childers MD Active TRUE METRIX AIR GLUCOSE METER DEVICE Use as directed BLOOD GLUCOSE MONITORING SUPPL 86849199324 Active Baltazar Childers MD Activ e TRUE METRIX BLOOD GLUCOSE TEST IN VITRO STRIP test blood sug ar BID Dx: E11.65 GLUCOSE BLOOD 54175680625 Active KENDALL Juarez Active NORTRIPTYLINE HCL 50 MG ORAL CAPSULE 1 twice a day for neuropathy 2 NORTRIPTYLINE HCL 50122376605 Active Baltazar Childers MD Acti ve ASPIRIN 81 MG TBEC Take one (1) tablet by mouth daily ASPIRIN 65686307587 Active Baltazar Childers MD Active GABAPENTIN 300 MG ORAL CAPSULE 1 three times a day 201 12/03/26 GABAPENTIN 67237968640 No Longer Active Baltazar Childers MD Activ e LISINOPRIL 20 MG ORAL TABLET 1 tablet by mouth daily at night 2016 LISINOPRIL 29845827718 Active Baltazar Childers MD Active ZITHROMAX Z-ISAIAS 250 MG ORAL TABLET Take two tablets to day and then 1 tablet daily for 4 days AZITHROMYCIN 82952682804 No Longer A ctive Baltazar Childers MD Active LANTUS SOLOSTAR 100 UNIT/ML SUBCUTANEOUS SOLUTION PEN- INJECTOR 30 units SC daily INSULIN GLARGINE 69217264383 Active Baltazar Childers MD Active AMLODIPINE BESYLATE 5 MG ORAL TABLET 1 tab daily for HTN AMLODIPINE BESYLATE 53106037363 Active Baltazar Childers MD Active GLIPIZIDE 10 MG ORAL TABLET take 2 tablets twice daily GLIPIZIDE 12710402622 Active Baltazar Childers MD Active SUCRALFATE 1 GM ORAL TABLET 1 four times a day to coat the stoma ch SUCRALFATE 31536915010 No Longer Active Baltazar Childers MD Active PEN NEEDLES 31G X 6 MM use 1 daily INSULIN PEN NE EDLE 19766707022 Active KENDALL Juarez Active TOUJEO SOLOSTAR 300 UNIT/ML SUBCUTANEOUS SOLUTION PEN- INJECTOR 10 units SC daily INSULIN GLARGINE 16233088170 No Longer Active Rola ARGUETA Active NAPROXEN SODIUM 220 MG ORAL TABLET 1 three times a day as needed NAPROXEN SODIUM 90633480253 No Longer Active Baltazar Childers MD Active ATORVASTATIN CALCIUM 20 MG ORAL TABLET Take 1 tab daily ATORVASTATIN CALCIUM 86210202821 Active Baltazar Childers MD A ctive FUROSEMIDE 40 MG ORAL TABLET Take one by mouth daily FUROSEMIDE 61628662199 Active Baltazar Childers MD Active LISINOPRIL 20 MG ORAL TABLET Take one by mouth daily at bedtime LISINOPRIL 27973613024 No Longer Active Baltazar Childers MD Active ONETOUCH ULTRA BLUE IN VITRO STRIP Test twice a day 07/11/11 GLUCOSE BLOOD 82877467039 No Longer Active Baltazar Childers MD Acti ve TRUEPLUS LANCETS 33G Test twice a day LANCETS 3189517 9536 Active Beth Carr, RMA Active TRUEDRAW LANCING DEVICE Test twice a day LANCET DEVICES 47343552902 Active aBltazar Childers MD Active TRUETRACK BLOOD GLUCOSE w/Device KIT Test twice a day BLOOD GLUCOSE MONITORING SUPPL 21258102074 Active Baltazar Childers MD Activ e HYDROCODONE-ACETAMINOPHEN 7.5-325 MG ORAL TABLET Take 1 tab every 6-8 hours PRN HYDROCODONE-ACETAMINOPHEN 83395663574 Active Baltazar Nickerson MD Active GABAPENTIN 300 MG ORAL CAPSULE 1 po qd x 2 days, then 1 po BID x 2 days, then 1 po TID GABAPENTIN 92782415485 No Longer Active Baltazar Childers MD Active NAPROXEN 500 MG ORAL TABLET 1 tablet by mouth twice daily NAPROXEN 95259254345 No Longer Active Baltazar Childers MD Active PROAIR HFA 108 (90 Base) MCG/ACT INHALATION AEROSOL SO LUTION 2 puffs four times a day as needed ALBUTEROL SULFATE 98901740397 Active Paul Childers MD Active DEPO-TESTOSTERONE 200 MG/ML INTRAMUSCULAR SOLUTION as directed TESTOSTERONE CYPIONATE 90721453704 No Longer Active Baltazar Childers MD Active LIPITOR 20 MG ORAL TABLET Take one by mouth daily in evening ATORVASTATIN CALCIUM 85826176387 No Longer Active Baltazar Childers MD Active CRESTOR 10 MG ORAL TABLET 1 by mouth every day ROSUVASTATIN CALCIUM 18143648960 No Longer Active Baltazar Childers MD Active PHENTERMINE HCL 37.5 MG ORAL TABLET Take one by mouth daily PHENTERMINE HCL 93971546784 No Longer Active Baltazar Childers MD Ac tive TIZANIDINE HCL 4 MG ORAL TABLET 1 daily as needed for muscle spa sm TIZANIDINE HCL 73683028457 No Longer Active Dawna Salazar RN Active [id number] 50-325-40 MG ORAL TABLET 1 fo ur times a day as needed for heacache [id number] 27242795586 Active KENDALL Juarez Active SUMATRIPTAN SUCCINATE 100 MG ORAL TABLET 1 tablet by m outh at onset of migraine as needed SUMATRIPTAN SUCCINATE 88386514909 Active Beth trujillo, KENDALL Active LORATADINE 10 MG ORAL TABLET Take one by mouth daily LORATADINE 12412489838 Active Baltazar Childers MD Active OMEPRAZOLE 20 MG ORAL CAPSULE DELAYED RELEASE Take one by mouth jostin ly OMEPRAZOLE 70728816939 Active Baltazar Childers MD Active HYDROXYZINE HCL 25 MG ORAL TABLET Take one by mouth daily HYDROXYZINE HCL 12384982571 Active Baltazar Childers MD Active ALPRAZOLAM 1 MG ORAL TABLET 1 tablet [facility] ALPRAZOLAM 30771531427 Active Baltazar Childers MD Active METFORMIN HCL 1000 MG ORAL TABLET Take one by mouth twice daily METFORMIN HCL 87681205516 Active Baltazar Childers MD Active TIZANIDINE HCL 4 MG ORAL TABLET 1 daily as needed for muscle spa sm TIZANIDINE HCL 4 MG ORAL TABLET 554490 TIZANIDINE HCL Inactive PHENTERMINE HCL 37.5 MG ORAL TABLET Take one by mouth daily PHENTERMINE HCL 37.5 MG ORAL TABLET 878821 PHENTERMINE HCL Inac tive CRESTOR 10 MG ORAL TABLET 1 by mouth every day CRESTOR 10 MG ORAL TABLET 954156 ROSUVASTATIN CALCIUM Inactive LIPITOR 20 MG ORAL TABLET Take one by mouth daily in evening LIPITOR 20 MG ORAL TABLET 118493 ATORVASTATIN CALCIUM Inactive DEPO-TESTOSTERONE 200 MG/ML INTRAMUSCULAR SOLUTION as directed DEPO-TESTOSTERONE 200 MG/ML INTRAMUSCULAR SOLUTION 7036681 RUFINO TOSTERONE CYPIONATE Inactive NAPROXEN 500 MG ORAL TABLET 1 tablet by mouth twice daily NAPROXEN 500 MG ORAL TABLET 011133 NAPROXEN Inactive GABAPENTIN 300 MG ORAL CAPSULE 1 po qd x 2 days, then 1 po BID x 2 days, then 1 po TID GABAPENTIN 300 MG ORAL CAPSULE 461687 GABAP ENTIN Inactive ONETOUCH ULTRA BLUE IN VITRO STRIP Test twice a day 07/11/11 ONETOUCH ULTRA BLUE IN VITRO STRIP GLUCOSE BLOOD Inact amie NAPROXEN SODIUM 220 MG ORAL TABLET 1 three times a day as needed NAPROXEN SODIUM 220 MG ORAL TABLET 575051 NAPROXEN SODI UM Inactive TOUJEO SOLOSTAR 300 UNIT/ML SUBCUTANEOUS SOLUTION PEN- INJECTOR 10 units SC daily TOUJEO SOLOSTAR 300 UNIT/ML SUBCUTANEOUS SOLUTION PEN-INJECTOR INSULIN GLARGINE Inactive SUCRALFATE 1 GM ORAL TABLET 1 four times a day to coat the stoma ch SUCRALFATE 1 GM ORAL TABLET 962077 SUCRALFATE Inac tive GABAPENTIN 300 MG ORAL CAPSULE 1 three times a day 201 12/03/26 GABAPENTIN 300 MG ORAL CAPSULE 307543 GABAPENTIN Inactive TRAMADOL HCL 50 MG ORAL TABLET 1 twice a day as needed for pain TRAMADOL HCL 50 MG ORAL TABLET 563248 TRAMADOL HCL I nactive ZITHROMAX Z-ISAIAS 250 MG ORAL TABLET Take two tablets to day and then 1 tablet daily for 4 days ZITHROMAX Z-ISAIAS 250 MG ORAL TAB LET 602992 AZITHROMYCIN Inactive Immunizations Vaccine Administration Date Value Standard Floyd cription influenza immunization (Flu Vax) has been administered 05/11 Done according to patient influenza virus vaccine, unspecified for mulation pneumococcal immunization administered Pneumovax 23 [CVX33] pneumococcal polysaccharide vaccine, 23 valent Seasonal influenza vaccine, injectable, containing preservative, for > 3 years old (Afluria, FluLaval, Fluzone, Fluvirin, Fluarix, Agriflu(>= 18 yo)) Fluzone (>3 yrs.) [[id number]] Influenza, seasonal, inject able Seasonal influenza vaccine, injectable, containing preservative, for > 3 years old (Afluria, FluLaval, Fluzone, Fluvirin, Fluarix, Agriflu(>= 18 yo)) Fluzone (>3 yrs.) [DYV794] Influenza, seasonal, inject able Vital Signs Date [...] - Chem istry sodium, serum 139 mmol/L 920-090 8683/06/26 potassium, serum 4.8 mmol/L 3.5-5.2 chloride, serum [...] 8.5 % 4.3-6.0 sodium, serum 142 mmol/L 311-724 1610/12/18 carbon dioxide, venous blood 32.5 mmol/L 21.0-32 [...] 0.40 mg/dL 0.00-1.00 cholesterol, serum 218 mg/dL 030-004 8203/12/18 triglyceride, serum, fasting 357 mg/dL 30-200 HDL [...] (L) - Chemistry cholesterol, serum 209 mg/dL 865-227 0137/12/27 triglyceride, serum, fasting 329 mg/dL 30-200 HDL cholesterol, serum 56 mg/dL 32-60 LDL cholesterol, serum 87 mg/dL 0-130 TSH 3.60 m[iU]/mL 0.36-3.74 Lab Report: Thyroid Stimulating Hormone (L) - Chemistry TSH 8.56 m[iU]/mL 0.36-3.74 Office Visit: Meds Check - Toxicology drug screen, urine, qualitative negative Encounters Code Encounter Date Provider Facility CPT-86429 [id number] Vst-Est Level IV 15:30:55 COMMODITY MANAGER Charlie Childers MD [facility] CPT-39251 [id number] Vst-Est Level IV 13:49:06 [facility] Level 4 Est. Patient 17:26:08 CDT Ann trujillo [id number] Vst-Est Level V 14:26:27 CDT Aneudy Childers MD [facility] CPT-08375 Level 4 Est. Patient 17:05:37 CDT Baltazar Childers MD [facility] CPT-17553 Level 4 Est. Patient 16:21:19 COMMODITY MANAGER Baltazar Childers MD [facility] CPT-18535 Level 4 Est. Patient 12:25:11 CDT Baltazar Childers MD [facility] CPT-24170 Level 4 Est. Patient 14:22:31 CDT Baltazar Childers MD [facility] CPT-79356 Level 4 Est. Patient 15:44:38 CDT Shonna Parker APRN [facility] CPT-52447 Level 4 Est. Patient 11:34:17 CDT Baltazar Childers MD [facility] CPT-90068 Level 3 Est. Patient 16:40:40 CDT Baltazar Childers MD [facility] CPT-83167 Level 4 Est. Patient 10:41:24 CDT Baltazar Childers MD [facility] CPT-96726 Level 4 Est. Patient 16:01:48 CDT Baltazar Childers MD [facility] CPT-07098 Level 4 Est. Patient 16:54:07 COMMODITY MANAGER Baltazar Childers MD [facility] CPT-97355 Level 4 Est. Patient 15:42:12 CDT Baltazar Childers MD [facility] CPT-23764 Level 4 Est. Patient 11:29:55 CDT Baltazar Childers MD [facility] CPT-67096 Level 4 Est. Patient 14:15:19 CDT Baltazar Childers MD [facility] CPT-07837 Level 4 Est. Patient 12:20:13 CDT Baltazar Childers MD [facility] CPT-29711 Level 4 Est. Patient 14:52:45 COMMODITY MANAGER Baltazar Childers MD [facility] CPT-69132 Level 4 Est. Patient 14:18:34 COMMODITY MANAGER Baltazar Childers MD [facility] CPT-50603 Level 4 Est. Patient 15:18:29 CDT Baltazar Childers MD [facility] CPT-33291 Level 3 Est. Patient 12:45:34 CDT Baltazar Childers MD [facility] CPT-86904 Level 3 Est. Patient 10:10:11 CDT Baltazar Childers MD [facility] CPT-73794 Level 3 Est. Patient 14:07:50 CDT Baltazar Childers MD [facility] CPT-94468 Level 4 Est. Patient 12:26:10 COMMODITY MANAGER Baltazar Childers MD [facility] CPT-57125 Level 4 Est. Patient 14:45:38 CDT Baltazar Childers MD [facility] CPT-52415 Level 4 New Patient 12:30:48 CDT Baltazar hinton MD [facility] Procedures Code Procedure Name Date Entry Date Standard Desc ription CPT-000 Give Appropriate Flu Vaccine 12:25:14 CDT 2 CPT-36268 First Vx - Ix admin via ID I M or jet injects without counseling by physician 13:08:59 CDT CPT-55377 Fluzone Quadrivalent Intramuscular Suspe nsion 0.5 ML 13:08:59 CDT CPT-14379 Venipuncture Draw Fee 12:04:12 CDT CPT-49176 Lipid - LAB USE ONLY 17:39:15 COMMODITY MANAGER 9 CPT-04856 HGBA1C - LAB USE ONLY 17:39:15 COMMODITY MANAGER CPT-47929 CMP - LAB USE ONLY 17:39:14 COMMODITY MANAGER CPT-83423 Venipuncture Draw Fee 17:39:14 COMMODITY MANAGER CPT-20348 First Vx - Ix admin via ID I M or jet injects without counseling by physician 16:55:17 COMMODITY MANAGER CPT-38080 Fluzone Quadrivalent Intramuscular Suspe nsion 0.5 ML 16:55:17 COMMODITY MANAGER CPT-59906 Renal Panel - LAB USE ONLY 17:39:20 CDT 201 10/31/07 CPT-95982 CBC - LAB USE ONLY 17:39:20 CDT CPT-70254 Venipuncture Draw Fee 17:39:20 CDT CPT-39541 Venipuncture Draw Fee 14:33:30 CDT CPT-09928 Renal Panel - LAB USE ONLY 14:33:30 CDT 201 10/31/07 CPT-93724 CBC - LAB USE ONLY 14:33:29 CDT CPT-57311 Venipuncture Draw Fee 14:50:21 COMMODITY MANAGER CPT-81973 Immunization Single Admin 17:35:35 CDT 2014 CPT-87313 Fluzone Quadrivalent preservative free ( >=3yrs.) 17:35:35 CDT CPT-75149 Venipuncture Draw Fee 12:10:27 COMMODITY MANAGER CPT-44765 Fluzone Quadrivalent Intramuscular Suspe nsion 0.5 ML 10:49:13 CDT CPT-81301 First Vx Component - Ix admi n via ID IM or jet inj without physician counseling 15:17:19 COMMODITY MANAGER CPT-22505 Pneumovax 15:17:19 COMMODITY MANAGER CPT-78925 Pneumovax 14:52:45 COMMODITY MANAGER CPT-58610 Venipuncture Draw Fee 14:06:30 COMMODITY MANAGER CPT-000 Give Appropriate Flu Vaccine 14:18:34 COMMODITY MANAGER 2 CPT-13325 Administration single or combination vac cine inc oral 14:46:00 COMMODITY MANAGER CPT-80734 Influenza split virus > age 3 14:46:00 COMMODITY MANAGER CPT-OV Office Visit 19:13:16 CDT CPT-08064 Zostavax 18:41:56 CDT CPT-52104 Administration single or combination vac cine inc oral 12:56:39 CDT CPT-86314 Zoster Vaccine (Zostavax) 12:56:39 CDT 2012 CPT-43660 Venipuncture Draw Fee 10:58:57 CDT CPT-49906 Sono pelvis non OB uterus ovaries cervix 17:45:04 CDT CPT-56070 Sono retroperitoneal complete kidneys an d bladder 17:14:36 CDT CPT-OV Office Visit 14:59:38 COMMODITY MANAGER CPT-J1070 Depo Testosterone 100 mg 14:50:13 CDT 03/05 CPT-51034 Abx/Therapy Injection 14:50:13 CDT CPT-66002 Administration single or combination vac cine inc oral 14:34:43 CDT CPT-28220 Influenza split virus > age 3 14:34:43 CDT CPT-J1070 Depo Testosterone 100 mg 17:37:13 CDT 01/11 CPT-98704 Abx/Therapy Injection 17:37:13 CDT CPT-28868 Venipuncture Draw Fee 16:30:13 CDT CPT-77040 Venipuncture Draw Fee 16:29:43 CDT CPT-J1070 Depo Testosterone 100 mg 14:45:38 CDT 01/11
--- OUTSIDE RECORDS SUMMARY | 2019-10-27 11:52 | XMS REPORT | Clinical Summary ---
Author Author Admin, Elba Lance Michelle [facility] Address Unknown Phone Unavailable Allergies, Adverse Reactions, [...] day as needed for pain TRAMADOL HCL 90506171584 No Longer Active Baltazar Childers MD Active ROBAXIN 500 MG ORAL TABLET Take 1.5 (one and one half) tabs once daily METHOCARBAMOL 69022339025 Active Baltazar Childers MD Active SYNTHROID 112 MCG ORAL TABLET Take one tablet a day LEVOTHYROXINE SODIUM 11813306537 Active Baltazar Childers MD Active TRUE METRIX AIR GLUCOSE METER DEVICE Use as directed BLOOD GLUCOSE MONITORING SUPPL 71857515596 Active aBltazar Childers MD Activ e TRUE METRIX BLOOD GLUCOSE TEST IN VITRO STRIP test blood sug ar BID Dx: E11.65 GLUCOSE BLOOD 17272431236 Active KENDALL Juarez Active NORTRIPTYLINE HCL 50 MG ORAL CAPSULE 1 twice a day for neuropathy 2 NORTRIPTYLINE HCL 84158591523 Active Baltazar Childers MD Acti ve ASPIRIN 81 MG TBEC Take one (1) tablet by mouth daily ASPIRIN 93225766721 Active Baltazar Childers MD Active GABAPENTIN 300 MG ORAL CAPSULE 1 three times a day 201 12/03/26 GABAPENTIN 16058047213 No Longer Active Baltazar Childers MD Activ e LISINOPRIL 20 MG ORAL TABLET 1 tablet by mouth daily at night 2016 LISINOPRIL 14138853521 Active Baltazar Childers MD Active ZITHROMAX Z-ISAIAS 250 MG ORAL TABLET Take two tablets to day and then 1 tablet daily for 4 days AZITHROMYCIN 54810300087 No Longer A ctive Baltazar Childers MD Active LANTUS SOLOSTAR 100 UNIT/ML SUBCUTANEOUS SOLUTION PEN- INJECTOR 30 units SC daily INSULIN GLARGINE 54289481679 Active Baltazar Childers MD Active AMLODIPINE BESYLATE 5 MG ORAL TABLET 1 tab daily for HTN AMLODIPINE BESYLATE 65871309493 Active Baltazar Childers MD Active GLIPIZIDE 10 MG ORAL TABLET take 2 tablets twice daily GLIPIZIDE 90447994198 Active Baltazar Childers MD Active SUCRALFATE 1 GM ORAL TABLET 1 four times a day to coat the stoma ch SUCRALFATE 81341273470 No Longer Active Baltazar Childers MD Active PEN NEEDLES 31G X 6 MM use 1 daily INSULIN PEN NE EDLE 32817025254 Active KENDALL Juarez Active TOUJEO SOLOSTAR 300 UNIT/ML SUBCUTANEOUS SOLUTION PEN- INJECTOR 10 units SC daily INSULIN GLARGINE 08995030330 No Longer Active Rola ARGUETA Active NAPROXEN SODIUM 220 MG ORAL TABLET 1 three times a day as needed NAPROXEN SODIUM 28960922789 No Longer Active Baltazar Childers MD Active ATORVASTATIN CALCIUM 20 MG ORAL TABLET Take 1 tab daily ATORVASTATIN CALCIUM 66795243374 Active Baltazar Childers MD A ctive FUROSEMIDE 40 MG ORAL TABLET Take one by mouth daily FUROSEMIDE 26576991564 Active Baltazar Childers MD Active LISINOPRIL 20 MG ORAL TABLET Take one by mouth daily at bedtime LISINOPRIL 28924967790 No Longer Active Baltazar Childers MD Active ONETOUCH ULTRA BLUE IN VITRO STRIP Test twice a day 07/11/11 GLUCOSE BLOOD 34877404151 No Longer Active Baltazar Childers MD Acti ve TRUEPLUS LANCETS 33G Test twice a day LANCETS 8994499 6105 Active Beth Carr, RMA Active TRUEDRAW LANCING DEVICE Test twice a day LANCET DEVICES 62001982047 Active Baltazar Childers MD Active TRUETRACK BLOOD GLUCOSE w/Device KIT Test twice a day BLOOD GLUCOSE MONITORING SUPPL 35405797295 Active Baltazar Childers MD Activ e HYDROCODONE-ACETAMINOPHEN 7.5-325 MG ORAL TABLET Take 1 tab every 6-8 hours PRN HYDROCODONE-ACETAMINOPHEN 74929509424 Active Baltazar Nickerson MD Active GABAPENTIN 300 MG ORAL CAPSULE 1 po qd x 2 days, then 1 po BID x 2 days, then 1 po TID GABAPENTIN 35741686170 No Longer Active Baltazar Childers MD Active NAPROXEN 500 MG ORAL TABLET 1 tablet by mouth twice daily NAPROXEN 28698402646 No Longer Active Baltazar Childers MD Active PROAIR HFA 108 (90 Base) MCG/ACT INHALATION AEROSOL SO LUTION 2 puffs four times a day as needed ALBUTEROL SULFATE 19328593698 Active Paul Childers MD Active DEPO-TESTOSTERONE 200 MG/ML INTRAMUSCULAR SOLUTION as directed TESTOSTERONE CYPIONATE 28304286874 No Longer Active Baltazar Childers MD Active LIPITOR 20 MG ORAL TABLET Take one by mouth daily in evening ATORVASTATIN CALCIUM 93093495436 No Longer Active Baltazar Childers MD Active CRESTOR 10 MG ORAL TABLET 1 by mouth every day ROSUVASTATIN CALCIUM 81165708938 No Longer Active Baltazar Childers MD Active PHENTERMINE HCL 37.5 MG ORAL TABLET Take one by mouth daily PHENTERMINE HCL 80125715553 No Longer Active Baltazar Childers MD Ac tive TIZANIDINE HCL 4 MG ORAL TABLET 1 daily as needed for muscle spa sm TIZANIDINE HCL 41804277320 No Longer Active Dawna Salazar RN Active [id number]-[id number]-NHSOXSOC 50-325-40 MG ORAL TABLET 1 fo ur times a day as needed for heacache [id number] 28818350366 Active KENDALL Juarez Active SUMATRIPTAN SUCCINATE 100 MG ORAL TABLET 1 tablet by m outh at onset of migraine as needed SUMATRIPTAN SUCCINATE 78080044933 Active Beth trujillo, KENDALL Active LORATADINE 10 MG ORAL TABLET Take one by mouth daily LORATADINE 95651633016 Active Baltazar Childers MD Active OMEPRAZOLE 20 MG ORAL CAPSULE DELAYED RELEASE Take one by mouth jostin ly OMEPRAZOLE 47266717415 Active Baltazar Childers MD Active HYDROXYZINE HCL 25 MG ORAL TABLET Take one by mouth daily HYDROXYZINE HCL 66146161430 Active Baltazar Childers MD Active ALPRAZOLAM 1 MG ORAL TABLET 1 tablet [facility] AL[facility] 27124091262 Active Baltazar Childers MD Active METFORMIN HCL 1000 MG ORAL TABLET Take one by mouth twice daily METFORMIN HCL 03185093914 Active Baltazar Childers MD Active TIZANIDINE HCL 4 MG ORAL TABLET 1 daily as needed for muscle spa sm TIZANIDINE HCL 4 MG ORAL TABLET 119743 TIZANIDINE HCL Inactive PHENTERMINE HCL 37.5 MG ORAL TABLET Take one by mouth daily PHENTERMINE HCL 37.5 MG ORAL TABLET 063853 PHENTERMINE HCL Inac tive CRESTOR 10 MG ORAL TABLET 1 by mouth every day CRESTOR 10 MG ORAL TABLET 677789 ROSUVASTATIN CALCIUM Inactive LIPITOR 20 MG ORAL TABLET Take one by mouth daily in evening LIPITOR 20 MG ORAL TABLET 967731 ATORVASTATIN CALCIUM Inactive DEPO-TESTOSTERONE 200 MG/ML INTRAMUSCULAR SOLUTION as directed DEPO-TESTOSTERONE 200 MG/ML INTRAMUSCULAR SOLUTION 8216619 RUFINO TOSTERONE CYPIONATE Inactive NAPROXEN 500 MG ORAL TABLET 1 tablet by mouth twice daily NAPROXEN 500 MG ORAL TABLET 806513 NAPROXEN Inactive GABAPENTIN 300 MG ORAL CAPSULE 1 po qd x 2 days, then 1 po BID x 2 days, then 1 po TID GABAPENTIN 300 MG ORAL CAPSULE 425580 GABAP ENTIN Inactive ONETOUCH ULTRA BLUE IN VITRO STRIP Test twice a day 07/11/11 ONETOUCH ULTRA BLUE IN VITRO STRIP GLUCOSE BLOOD Inact amie NAPROXEN SODIUM 220 MG ORAL TABLET 1 three times a day as needed NAPROXEN SODIUM 220 MG ORAL TABLET 294458 NAPROXEN SODI UM Inactive TOUJEO SOLOSTAR 300 UNIT/ML SUBCUTANEOUS SOLUTION PEN- INJECTOR 10 units SC daily TOUJEO SOLOSTAR 300 UNIT/ML SUBCUTANEOUS SOLUTION PEN-INJECTOR INSULIN GLARGINE Inactive SUCRALFATE 1 GM ORAL TABLET 1 four times a day to coat the stoma ch SUCRALFATE 1 GM ORAL TABLET 740129 SUCRALFATE Inac tive GABAPENTIN 300 MG ORAL CAPSULE 1 three times a day 201 12/03/26 GABAPENTIN 300 MG ORAL CAPSULE 737494 GABAPENTIN Inactive TRAMADOL HCL 50 MG ORAL TABLET 1 twice a day as needed for pain TRAMADOL HCL 50 MG ORAL TABLET 564870 TRAMADOL HCL I nactive ZITHROMAX Z-ISAIAS 250 MG ORAL TABLET Take two tablets to day and then 1 tablet daily for 4 days ZITHROMAX Z-ISAIAS 250 MG ORAL TAB LET 394394 AZITHROMYCIN Inactive Immunizations Vaccine Administration Date Value Standard Floyd cription influenza immunization (Flu Vax) has been administered 05/11 Done according to patient influenza virus vaccine, unspecified for mulation pneumococcal immunization administered Pneumovax 23 [CVX33] pneumococcal polysaccharide vaccine, 23 valent Seasonal influenza vaccine, injectable, containing preservative, for > 3 years old (Afluria, FluLaval, Fluzone, Fluvirin, Fluarix, Agriflu(>= 18 yo)) Fluzone (>3 yrs.) [[id number]] Influenza, seasonal, inject able Seasonal influenza vaccine, injectable, containing preservative, for > 3 years old (Afluria, FluLaval, Fluzone, Fluvirin, Fluarix, Agriflu(>= 18 yo)) Fluzone (>3 yrs.) [[id number]] Influenza, seasonal, inject able Vital Signs Date [...] - Chem istry sodium, serum 139 mmol/L 960-840 9059/06/26 potassium, serum 4.8 mmol/L 3.5-5.2 chloride, serum [...] 8.5 % 4.3-6.0 sodium, serum 142 mmol/L 034-854 7085/12/18 carbon dioxide, venous blood 32.5 mmol/L 21.0-32 [...] 0.40 mg/dL 0.00-1.00 cholesterol, serum 218 mg/dL 384-228 7757/12/18 triglyceride, serum, fasting 357 mg/dL 30-200 HDL [...] (L) - Chemistry cholesterol, serum 209 mg/dL 296-328 9044/12/27 triglyceride, serum, fasting 329 mg/dL 30-200 HDL cholesterol, serum 56 mg/dL 32-60 LDL cholesterol, serum 87 mg/dL 0-130 TSH 3.60 m[iU]/mL 0.36-3.74 Lab Report: Thyroid Stimulating Hormone (L) - Chemistry TSH 8.56 m[iU]/mL 0.36-3.74 Office Visit: Meds Check - Toxicology drug screen, urine, qualitative negative Encounters Code Encounter Date Provider Facility CPT-75927 [id number] Vst-Est Level IV 15:30:55 LIQUOR RECTIFIER Charlie Childers MD [facility] CPT-73100 73996-Ohf Vst-Est Level IV 13:49:06 [facility] Level 4 Est. Patient 17:26:08 CDT Ann trujillo [facility]-72620 32402-Ncw Vst-Est Level V 14:26:27 CDT Aneudy Childers MD [facility] CPT-57963 Level 4 Est. Patient 17:05:37 CDT Baltazar Childers MD [facility] CPT-83652 Level 4 Est. Patient 16:21:19 LIQUOR RECTIFIER Baltazar Childers MD [facility] CPT-84004 Level 4 Est. Patient 12:25:11 CDT Baltazar Childers MD [facility] CPT-62429 Level 4 Est. Patient 14:22:31 CDT Baltazar Childers MD [facility] CPT-35517 Level 4 Est. Patient 15:44:38 CDT Shonna Parker APRN [facility] CPT-28469 Level 4 Est. Patient 11:34:17 CDT Baltazar Childers MD [facility] CPT-09596 Level 3 Est. Patient 16:40:40 CDT Baltazar Childers MD [facility] CPT-84838 Level 4 Est. Patient 10:41:24 CDT Baltazar Childers MD [facility] CPT-39660 Level 4 Est. Patient 16:01:48 CDT Baltazar Childers MD [facility] CPT-54163 Level 4 Est. Patient 16:54:07 LIQUOR RECTIFIER Baltazar Childers MD [facility] CPT-48830 Level 4 Est. Patient 15:42:12 CDT Baltazar Childers MD [facility] CPT-16247 Level 4 Est. Patient 11:29:55 CDT Baltazar Childers MD [facility] CPT-08070 Level 4 Est. Patient 14:15:19 CDT Baltazar Childers MD [facility] CPT-49824 Level 4 Est. Patient 12:20:13 CDT Baltazar Childers MD [facility] CPT-98292 Level 4 Est. Patient 14:52:45 LIQUOR RECTIFIER Baltazar Childers MD [facility] CPT-74898 Level 4 Est. Patient 14:18:34 LIQUOR RECTIFIER Baltazar Childers MD [facility] CPT-79111 Level 4 Est. Patient 15:18:29 CDT Baltazar Childers MD [facility] CPT-72873 Level 3 Est. Patient 12:45:34 CDT Baltazar Childers MD [facility] CPT-21608 Level 3 Est. Patient 10:10:11 CDT Baltazar Childers MD [facility] CPT-25282 Level 3 Est. Patient 14:07:50 CDT Baltazar Childers MD [facility] CPT-77997 Level 4 Est. Patient 12:26:10 LIQUOR RECTIFIER Baltazar Childers MD [facility] CPT-70530 Level 4 Est. Patient 14:45:38 CDT Baltazar Childers MD [facility] CPT-52335 Level 4 New Patient 12:30:48 CDT Baltazar hinton MD [facility] Procedures Code Procedure Name Date Entry Date Standard Desc ription CPT-000 Give Appropriate Flu Vaccine 12:25:14 CDT 2 CPT-46809 First Vx - Ix admin via ID I M or jet injects without counseling by physician 13:08:59 CDT CPT-30807 Fluzone Quadrivalent Intramuscular Suspe nsion 0.5 ML 13:08:59 CDT CPT-52192 Venipuncture Draw Fee 12:04:12 CDT CPT-81912 Lipid - LAB USE ONLY 17:39:15 LIQUOR RECTIFIER 9 CPT-92216 HGBA1C - LAB USE ONLY 17:39:15 LIQUOR RECTIFIER CPT-37795 CMP - LAB USE ONLY 17:39:14 LIQUOR RECTIFIER CPT-30549 Venipuncture Draw Fee 17:39:14 LIQUOR RECTIFIER CPT-17646 First Vx - Ix admin via ID I M or jet injects without counseling by physician 16:55:17 LIQUOR RECTIFIER CPT-06668 Fluzone Quadrivalent Intramuscular Suspe nsion 0.5 ML 16:55:17 LIQUOR RECTIFIER CPT-52866 Renal Panel - LAB USE ONLY 17:39:20 CDT 201 10/31/07 CPT-83689 CBC - LAB USE ONLY 17:39:20 CDT CPT-05092 Venipuncture Draw Fee 17:39:20 CDT CPT-12944 Venipuncture Draw Fee 14:33:30 CDT CPT-07227 Renal Panel - LAB USE ONLY 14:33:30 CDT 201 10/31/07 CPT-58789 CBC - LAB USE ONLY 14:33:29 CDT CPT-58101 Venipuncture Draw Fee 14:50:21 LIQUOR RECTIFIER CPT-86178 Immunization Single Admin 17:35:35 CDT 2014 CPT-14733 Fluzone Quadrivalent preservative free ( >=3yrs.) 17:35:35 CDT CPT-19430 Venipuncture Draw Fee 12:10:27 LIQUOR RECTIFIER CPT-67751 Fluzone Quadrivalent Intramuscular Suspe nsion 0.5 ML 10:49:13 CDT CPT-04957 First Vx Component - Ix admi n via ID IM or jet inj without physician counseling 15:17:19 LIQUOR RECTIFIER CPT-67580 Pneumovax 15:17:19 LIQUOR RECTIFIER CPT-95140 Pneumovax 14:52:45 LIQUOR RECTIFIER CPT-77825 Venipuncture Draw Fee 14:06:30 LIQUOR RECTIFIER CPT-000 Give Appropriate Flu Vaccine 14:18:34 LIQUOR RECTIFIER 2 CPT-99270 Administration single or combination vac cine inc oral 14:46:00 LIQUOR RECTIFIER CPT-45767 Influenza split virus > age 3 14:46:00 LIQUOR RECTIFIER CPT-OV Office Visit 19:13:16 CDT CPT-55160 Zostavax 18:41:56 CDT CPT-82369 Administration single or combination vac cine inc oral 12:56:39 CDT CPT-20965 Zoster Vaccine (Zostavax) 12:56:39 CDT 2012 CPT-03904 Venipuncture Draw Fee 10:58:57 CDT CPT-67061 Sono pelvis non OB uterus ovaries cervix 17:45:04 CDT CPT-58422 Sono retroperitoneal complete kidneys an d bladder 17:14:36 CDT CPT-OV Office Visit 14:59:38 LIQUOR RECTIFIER CPT-J1070 Depo Testosterone 100 mg 14:50:13 CDT 03/05 CPT-71517 Abx/Therapy Injection 14:50:13 CDT CPT-72705 Administration single or combination vac cine inc oral 14:34:43 CDT CPT-89810 Influenza split virus > age 3 14:34:43 CDT CPT-J1070 Depo Testosterone 100 mg 17:37:13 CDT 01/11 CPT-84267 Abx/Therapy Injection 17:37:13 CDT CPT-59543 Venipuncture Draw Fee 16:30:13 CDT CPT-79094 Venipuncture Draw Fee 16:29:43 CDT CPT-J1070 Depo Testosterone 100 mg 14:45:38 CDT 01/11
--- OUTSIDE RECORDS SUMMARY | 2019-10-27 11:53 | XMS REPORT | Clinical Summary ---
Author Author Admin, Elba Lance [place] Address Unknown Phone Unavailable Allergies, Adverse Reactions, [...] of hyperactivity DECREASED LIBIDO 799.81 Active Baltazar aWyne Decreased libido COLON POLYPS 211.3 Resolved Lolis [...] ronary atherosclerosis of unspecified type of vessel, tonto apache or graft OTH NONSPC ABN FINDNG RAD&OTH [...] unspecified type, uncontrolled Heartburn 787.1 Active Baltazar hCilders MD Heartburn Hypothyroidism 244.9 Active Carina Tucker [...] day as needed for pain TRAMADOL HCL 42177706037 No Longer Active Baltazar Childers MD Active ROBAXIN 500 MG ORAL TABLET Take 1.5 (one and one half) tabs once daily METHOCARBAMOL 74936718268 Active Baltazar Childers MD Active SYNTHROID 112 MCG ORAL TABLET Take one tablet a day LEVOTHYROXINE SODIUM 18035524585 Active Baltazar Childers MD Active TRUE METRIX AIR GLUCOSE METER DEVICE Use as directed BLOOD GLUCOSE MONITORING SUPPL 99829968479 Active Baltazar Childers MD Activ e TRUE METRIX BLOOD GLUCOSE TEST IN VITRO STRIP test blood sug ar BID Dx: E11.65 GLUCOSE BLOOD 31212644629 Active KENDALL Juarez Active NORTRIPTYLINE HCL 50 MG ORAL CAPSULE 1 twice a day for neuropathy 2 NORTRIPTYLINE HCL 35447773260 Active Baltazar Childers MD Acti ve ASPIRIN 81 MG TBEC Take one (1) tablet by mouth daily ASPIRIN 70314582819 Active Baltazar Childers MD Active GABAPENTIN 300 MG ORAL CAPSULE 1 three times a day 201 12/03/26 GABAPENTIN 48559837935 No Longer Active Baltazar Childers MD Activ e LISINOPRIL 20 MG ORAL TABLET 1 tablet by mouth daily at night 2016 LISINOPRIL 75527109959 Active Baltazar Childers MD Active ZITHROMAX Z-ISAIAS 250 MG ORAL TABLET Take two tablets to day and then 1 tablet daily for 4 days AZITHROMYCIN 70021772153 No Longer A ctive Baltazar Childers MD Active LANTUS SOLOSTAR 100 UNIT/ML SUBCUTANEOUS SOLUTION PEN- INJECTOR 30 units SC daily INSULIN GLARGINE 26511024624 Active Baltazar Childers MD Active AMLODIPINE BESYLATE 5 MG ORAL TABLET 1 tab daily for HTN AMLODIPINE BESYLATE 94622727935 Active Baltazar Childers MD Active GLIPIZIDE 10 MG ORAL TABLET take 2 tablets twice daily GLIPIZIDE 15143444353 Active Baltazar Childers MD Active SUCRALFATE 1 GM ORAL TABLET 1 four times a day to coat the stoma ch SUCRALFATE 03961090345 No Longer Active Baltazar Childers MD Active PEN NEEDLES 31G X 6 MM use 1 daily INSULIN PEN NE EDLE 71011208435 Active KENDALL Juarez Active TOUJEO SOLOSTAR 300 UNIT/ML SUBCUTANEOUS SOLUTION PEN- INJECTOR 10 units SC daily INSULIN GLARGINE 02925669448 No Longer Active Rola ARGUETA Active NAPROXEN SODIUM 220 MG ORAL TABLET 1 three times a day as needed NAPROXEN SODIUM 00231148681 No Longer Active Baltazar Childers MD Active ATORVASTATIN CALCIUM 20 MG ORAL TABLET Take 1 tab daily ATORVASTATIN CALCIUM 55824665111 Active Baltazar Childers MD A ctive FUROSEMIDE 40 MG ORAL TABLET Take one by mouth daily FUROSEMIDE 73189677764 Active Baltazar Childers MD Active LISINOPRIL 20 MG ORAL TABLET Take one by mouth daily at bedtime LISINOPRIL 82783195227 No Longer Active Baltazar Childers MD Active ONETOUCH ULTRA BLUE IN VITRO STRIP Test twice a day 07/11/11 GLUCOSE BLOOD 39535072550 No Longer Active Baltazar Childers MD Acti ve TRUEPLUS LANCETS 33G Test twice a day LANCETS 2822503 9477 Active Beth Carr, RMA Active TRUEDRAW LANCING DEVICE Test twice a day LANCET DEVICES 73276532626 Active Baltazar Childers MD Active TRUETRACK BLOOD GLUCOSE w/Device KIT Test twice a day BLOOD GLUCOSE MONITORING SUPPL 36986679682 Active Baltazar Childers MD Activ e HYDROCODONE-ACETAMINOPHEN 7.5-325 MG ORAL TABLET Take 1 tab every 6-8 hours PRN HYDROCODONE-ACETAMINOPHEN 58566008666 Active Baltazar Nickerson MD Active GABAPENTIN 300 MG ORAL CAPSULE 1 po qd x 2 days, then 1 po BID x 2 days, then 1 po TID GABAPENTIN 99752264996 No Longer Active Baltazar Chliders MD Active NAPROXEN 500 MG ORAL TABLET 1 tablet by mouth twice daily NAPROXEN 54771437198 No Longer Active Baltazar Childers MD Active PROAIR HFA 108 (90 Base) MCG/ACT INHALATION AEROSOL SO LUTION 2 puffs four times a day as needed ALBUTEROL SULFATE 45409327808 Active Paul Childers MD Active DEPO-TESTOSTERONE 200 MG/ML INTRAMUSCULAR SOLUTION as directed TESTOSTERONE CYPIONATE 14004355229 No Longer Active Baltazar Childers MD Active LIPITOR 20 MG ORAL TABLET Take one by mouth daily in evening ATORVASTATIN CALCIUM 69315512141 No Longer Active Baltazar Childers MD Active CRESTOR 10 MG ORAL TABLET 1 by mouth every day ROSUVASTATIN CALCIUM 10706410845 No Longer Active Baltazar Childers MD Active PHENTERMINE HCL 37.5 MG ORAL TABLET Take one by mouth daily PHENTERMINE HCL 25223072384 No Longer Active Baltazar Childers MD Ac tive TIZANIDINE HCL 4 MG ORAL TABLET 1 daily as needed for muscle spa sm TIZANIDINE HCL 42586786397 No Longer Active Dawna Salazar RN Active [id number] 50-325-40 MG ORAL TABLET 1 fo ur times a day as needed for heacache [id number] 08395341706 Active KENDALL Juarez Active SUMATRIPTAN SUCCINATE 100 MG ORAL TABLET 1 tablet by m outh at onset of migraine as needed SUMATRIPTAN SUCCINATE 60265909506 Active KENDALL Restrepo Active LORATADINE 10 MG ORAL TABLET Take one by mouth daily LORATADINE 92603466815 Active Baltazar Childers MD Active OMEPRAZOLE 20 MG ORAL CAPSULE DELAYED RELEASE Take one by mouth jostin ly OMEPRAZOLE 07576429183 Active Baltazar Childers MD Active HYDROXYZINE HCL 25 MG ORAL TABLET Take one by mouth daily HYDROXYZINE HCL 37245457082 Active Baltazar Childers MD Active ALPRAZOLAM 1 MG ORAL TABLET 1 [facility] 90439256498 Active Baltazar Childers MD Active METFORMIN HCL 1000 MG ORAL TABLET Take one by mouth twice daily METFORMIN HCL 87803741885 Active Baltazar Childers MD Active TIZANIDINE HCL 4 MG ORAL TABLET 1 daily as needed for muscle spa sm TIZANIDINE HCL 4 MG ORAL TABLET 933992 TIZANIDINE HCL Inactive PHENTERMINE HCL 37.5 MG ORAL TABLET Take one by mouth daily PHENTERMINE HCL 37.5 MG ORAL TABLET 595770 PHENTERMINE HCL Inac tive CRESTOR 10 MG ORAL TABLET 1 by mouth every day CRESTOR 10 MG ORAL TABLET 667321 ROSUVASTATIN CALCIUM Inactive LIPITOR 20 MG ORAL TABLET Take one by mouth daily in evening LIPITOR 20 MG ORAL TABLET 133777 ATORVASTATIN CALCIUM Inactive DEPO-TESTOSTERONE 200 MG/ML INTRAMUSCULAR SOLUTION as directed DEPO-TESTOSTERONE 200 MG/ML INTRAMUSCULAR SOLUTION 9529048 RUFINO TOSTERONE CYPIONATE Inactive NAPROXEN 500 MG ORAL TABLET 1 tablet by mouth twice daily NAPROXEN 500 MG ORAL TABLET 207583 NAPROXEN Inactive GABAPENTIN 300 MG ORAL CAPSULE 1 po qd x 2 days, then 1 po BID x 2 days, then 1 po TID GABAPENTIN 300 MG ORAL CAPSULE 026337 GABAP ENTIN Inactive ONETOUCH ULTRA BLUE IN VITRO STRIP Test twice a day 07/11/11 ONETOUCH ULTRA BLUE IN VITRO STRIP GLUCOSE BLOOD Inact amie NAPROXEN SODIUM 220 MG ORAL TABLET 1 three times a day as needed NAPROXEN SODIUM 220 MG ORAL TABLET 015968 NAPROXEN SODI UM Inactive TOUJEO SOLOSTAR 300 UNIT/ML SUBCUTANEOUS SOLUTION PEN- INJECTOR 10 units SC daily TOUJEO SOLOSTAR 300 UNIT/ML SUBCUTANEOUS SOLUTION PEN-INJECTOR INSULIN GLARGINE Inactive SUCRALFATE 1 GM ORAL TABLET 1 four times a day to coat the stoma ch SUCRALFATE 1 GM ORAL TABLET 164423 SUCRALFATE Inac tive GABAPENTIN 300 MG ORAL CAPSULE 1 three times a day 201 12/03/26 GABAPENTIN 300 MG ORAL CAPSULE 226167 GABAPENTIN Inactive TRAMADOL HCL 50 MG ORAL TABLET 1 twice a day as needed for pain TRAMADOL HCL 50 MG ORAL TABLET 662682 TRAMADOL HCL I nactive ZITHROMAX Z-ISAIAS 250 MG ORAL TABLET Take two tablets to day and then 1 tablet daily for 4 days ZITHROMAX Z-ISAIAS 250 MG ORAL TAB LET 287992 AZITHROMYCIN Inactive Immunizations Vaccine Administration Date Value Standard Floyd cription influenza immunization (Flu Vax) has been administered 05/11 Done according to patient influenza virus vaccine, unspecified for mulation pneumococcal immunization administered Pneumovax 23 [CVX33] pneumococcal polysaccharide vaccine, 23 valent Seasonal influenza vaccine, injectable, containing preservative, for > 3 years old (Afluria, FluLaval, Fluzone, Fluvirin, Fluarix, Agriflu(>= 18 yo)) Fluzone (>3 yrs.) [DQD572] Influenza, seasonal, inject able Seasonal influenza vaccine, injectable, containing preservative, for > 3 years old (Afluria, FluLaval, Fluzone, Fluvirin, Fluarix, Agriflu(>= 18 yo)) Fluzone (>3 yrs.) [QCY317] Influenza, seasonal, inject able Vital Signs Date [...] - Chem istry sodium, serum 139 mmol/L 158-604 3295/06/26 potassium, serum 4.8 mmol/L 3.5-5.2 chloride, serum [...] 8.5 % 4.3-6.0 sodium, serum 142 mmol/L 906-034 8741/12/18 carbon dioxide, venous blood 32.5 mmol/L 21.0-32 .0 potassium, serum 4.4 mmol/L 3.5-5.2 chloride, serum 101 mmol/L 98-107 blood glucose 150 mg/dL 65-95 urea nitrogen, blood 18 mg/dL 7-18 creatinine, serum 1.74 mg/dL 0.60-1.30 Estimated Glomerular Filtration Rate (calc) 32 (?) mL/min/1.73m2 = OR > 60 mL/min alanine aminotransferase (SGPT), serum 37 U/L 1278 aspartate aminotransferase (SGOT), serum 17 U/L 15-37 calcium, serum 9.2 mg/dL 8.5-10.1 bilirubin, serum, total 0.40 mg/dL 0.00-1.00 cholesterol, serum 218 mg/dL 440-051 7925/12/18 triglyceride, serum, fasting 357 mg/dL 30-200 HDL [...] (L) - Chemistry cholesterol, serum 209 mg/dL 116-217 7630/12/27 triglyceride, serum, fasting 329 mg/dL 30-200 HDL cholesterol, serum 56 mg/dL 32-60 LDL cholesterol, serum 87 mg/dL 0-130 TSH 3.60 m[iU]/mL 0.36-3.74 Lab Report: Thyroid Stimulating Hormone (L) - Chemistry TSH 8.56 m[iU]/mL 0.36-3.74 Office Visit: Meds Check - Toxicology drug screen, urine, qualitative negative Encounters Code Encounter Date Provider Facility CPT-39780 84671-Bod Vst-Est Level IV 15:30:55 [employer] Charlie Childers MD [facility] CPT-91283 18119-Cyx Vst-Est Level IV 13:49:06 [facility] Level 4 Est. Patient 17:26:08 CDT Ann trujillo [facility] CPT-61055 57359-Vwo Vst-Est Level V 14:26:27 CDT Aneudy Childers MD [facility] CPT-63076 Level 4 Est. Patient 17:05:37 CDT Baltazar Childers MD [facility] CPT-91135 Level 4 Est. Patient 16:21:19 [employer] Baltazar Childers MD [facility] CPT-17532 Level 4 Est. Patient 12:25:11 CDT Baltazar Childers MD [facility] CPT-69303 Level 4 Est. Patient 14:22:31 CDT Baltazar Childers MD [facility] CPT-18998 Level 4 Est. Patient 15:44:38 CDT Shonna Parker APRN [facility] CPT-43760 Level 4 Est. Patient 11:34:17 CDT Baltazar Childers MD [facility] CPT-88545 Level 3 Est. Patient 16:40:40 CDT Baltazar Childers MD [facility] CPT-01122 Level 4 Est. Patient 10:41:24 CDT Baltazar Childers MD [facility] CPT-77646 Level 4 Est. Patient 16:01:48 CDT Baltazar Childers MD [facility] CPT-24637 Level 4 Est. Patient 16:54:07 [employer] Baltazar Childers MD [facility] CPT-40142 Level 4 Est. Patient 15:42:12 CDT Baltazar Childers MD [facility] CPT-15346 Level 4 Est. Patient 11:29:55 CDT Baltazar Childers MD [facility] CPT-54196 Level 4 Est. Patient 14:15:19 CDT Baltazar Childers MD [facility] CPT-19030 Level 4 Est. Patient 12:20:13 CDT Baltazar Childers MD [facility] CPT-78620 Level 4 Est. Patient 14:52:45 [employer] Baltazar Childers MD [facility] CPT-36349 Level 4 Est. Patient 14:18:34 [employer] Baltazar Childers MD [facility] CPT-39576 Level 4 Est. Patient 15:18:29 CDT Baltazar Childers MD [facility] CPT-68789 Level 3 Est. Patient 12:45:34 CDT Baltazar Childers MD [facility] CPT-86422 Level 3 Est. Patient 10:10:11 CDT Baltazar Childers MD [facility] CPT-95395 Level 3 Est. Patient 14:07:50 CDT Baltazar Childers MD [facility] CPT-81047 Level 4 Est. Patient 12:26:10 [employer] Baltazar Childers MD [facility] CPT-40413 Level 4 Est. Patient 14:45:38 CDT Baltazar Childers MD [facility] CPT-78220 Level 4 New Patient 12:30:48 CDT Baltazar hinton MD [facility] Procedures Code Procedure Name Date Entry Date Standard Desc ription CPT-000 Give Appropriate Flu Vaccine 12:25:14 CDT 2 CPT-12559 First Vx - Ix admin via ID I M or jet injects without counseling by physician 13:08:59 CDT CPT-10295 Fluzone Quadrivalent Intramuscular Suspe nsion 0.5 ML 13:08:59 CDT CPT-25243 Venipuncture Draw Fee 12:04:12 CDT CPT-97577 Lipid - LAB USE ONLY 17:39:15 [employer] 9 CPT-88911 HGBA1C - LAB USE ONLY 17:39:15 [employer] CPT-39748 CMP - LAB USE ONLY 17:39:14 [employer] CPT-21452 Venipuncture Draw Fee 17:39:14 [employer] CPT-40597 First Vx - Ix admin via ID I M or jet injects without counseling by physician 16:55:17 [employer] CPT-59472 Fluzone Quadrivalent Intramuscular Suspe nsion 0.5 ML 16:55:17 [employer] CPT-85617 Renal Panel - LAB USE ONLY 17:39:20 CDT 201 10/31/07 CPT-49841 CBC - LAB USE ONLY 17:39:20 CDT CPT-93675 Venipuncture Draw Fee 17:39:20 CDT CPT-83476 Venipuncture Draw Fee 14:33:30 CDT CPT-96296 Renal Panel - LAB USE ONLY 14:33:30 CDT 201 10/31/07 CPT-23741 CBC - LAB USE ONLY 14:33:29 CDT CPT-08612 Venipuncture Draw Fee 14:50:21 [employer] CPT-94149 Immunization Single Admin 17:35:35 CDT 2014 CPT-89526 Fluzone Quadrivalent preservative free ( >=3yrs.) 17:35:35 CDT CPT-97647 Venipuncture Draw Fee 12:10:27 [employer] CPT-88470 Fluzone Quadrivalent Intramuscular Suspe nsion 0.5 ML 10:49:13 CDT CPT-22443 First Vx Component - Ix admi n via ID IM or jet inj without physician counseling 15:17:19 [employer] CPT-00562 Pneumovax 23 15:17:19 [employer] CPT-05727 Pneumovax 14:52:45 [employer] CPT-68908 Venipuncture Draw Fee 14:06:30 [employer] CPT-000 Give Appropriate Flu Vaccine 14:18:34 [employer] 2 CPT-76852 Administration single or combination vac cine inc oral 14:46:00 [employer] CPT-02131 Influenza split virus > age 3 14:46:00 [employer] CPT-OV Office Visit 19:13:16 CDT CPT-71039 Zostavax 18:41:56 CDT CPT-56057 Administration single or combination vac cine inc oral 12:56:39 CDT CPT-72552 Zoster Vaccine (Zostavax) 12:56:39 CDT 2012 CPT-60607 Venipuncture Draw Fee 10:58:57 CDT CPT-09702 Sono pelvis non OB uterus ovaries cervix 17:45:04 CDT CPT-52828 Sono retroperitoneal complete kidneys an d bladder 17:14:36 CDT CPT-OV Office Visit 14:59:38 [employer] CPT-J1070 Depo Testosterone 100 mg 14:50:13 CDT 03/05 CPT-59228 Abx/Therapy Injection 14:50:13 CDT CPT-40343 Administration single or combination vac cine inc oral 14:34:43 CDT CPT-59227 Influenza split virus > age 3 14:34:43 CDT CPT-J1070 Depo Testosterone 100 mg 17:37:13 CDT 01/11 CPT-02864 Abx/Therapy Injection 17:37:13 CDT CPT-59624 Venipuncture Draw Fee 16:30:13 CDT CPT-24169 Venipuncture Draw Fee 16:29:43 CDT CPT-J1070 Depo Testosterone 100 mg 14:45:38 CDT 01/11
--- OUTSIDE RECORDS SUMMARY | 2019-10-27 11:53 | XMS REPORT | Clinical Summary ---
Author Author Admin, Elba Lance Michelle [facility] Address Unknown Phone Unavailable Allergies, [...] ronary atherosclerosis of unspecified type of vessel, [place] or graft OTH NONSPC ABN FINDNG RAD&OTH [...] day as needed for pain TRAMADOL HCL 59735595412 No Longer Active Baltazar Childers MD Active ROBAXIN 500 MG ORAL TABLET Take 1.5 (one and one half) tabs once daily METHOCARBAMOL 71500408953 Active Baltazar Childers MD Active SYNTHROID 112 MCG ORAL TABLET Take one tablet a day LEVOTHYROXINE SODIUM 96215384973 Active Baltazar Childers MD Active TRUE METRIX AIR GLUCOSE METER DEVICE Use as directed BLOOD GLUCOSE MONITORING SUPPL 93687101436 Active Baltazar Childers MD Activ e TRUE METRIX BLOOD GLUCOSE TEST IN VITRO STRIP test blood sug ar BID Dx: E11.65 GLUCOSE BLOOD 47036667337 Active KENDALL Juarez Active NORTRIPTYLINE HCL 50 MG ORAL CAPSULE 1 twice a day for neuropathy 2 NORTRIPTYLINE HCL 53430136206 Active Baltazar Childers MD Acti ve ASPIRIN 81 MG TBEC Take one (1) tablet by mouth daily ASPIRIN 49520101620 Active Baltazar Childers MD Active GABAPENTIN 300 MG ORAL CAPSULE 1 three times a day 201 12/03/26 GABAPENTIN 43395090161 No Longer Active Baltazar Childers MD Activ e LISINOPRIL 20 MG ORAL TABLET 1 tablet by mouth daily at night 2016 LISINOPRIL 83341264511 Active Baltazar Childers MD Active ZITHROMAX Z-ISAIAS 250 MG ORAL TABLET Take two tablets to day and then 1 tablet daily for 4 days AZITHROMYCIN 49494781323 No Longer A ctive Baltazar Childers MD Active LANTUS SOLOSTAR 100 UNIT/ML SUBCUTANEOUS SOLUTION PEN- INJECTOR 30 units SC daily INSULIN GLARGINE 14364372788 Active Baltazar Childers MD Active AMLODIPINE BESYLATE 5 MG ORAL TABLET 1 tab daily for HTN AMLODIPINE BESYLATE 36339455577 Active Baltazar Childers MD Active GLIPIZIDE 10 MG ORAL TABLET take 2 tablets twice daily GLIPIZIDE 81312931178 Active Baltazar Childers MD Active SUCRALFATE 1 GM ORAL TABLET 1 four times a day to coat the stoma ch SUCRALFATE 58085459419 No Longer Active Baltazar Childers MD Active PEN NEEDLES 31G X 6 MM use 1 daily INSULIN PEN NE EDLE 97627900290 Active KENDALL Juarez Active TOUJEO SOLOSTAR 300 UNIT/ML SUBCUTANEOUS SOLUTION PEN- INJECTOR 10 units SC daily INSULIN GLARGINE 46405951761 No Longer Active Rola ARGUETA Active NAPROXEN SODIUM 220 MG ORAL TABLET 1 three times a day as needed NAPROXEN SODIUM 25567459985 No Longer Active Baltazar Childers MD Active ATORVASTATIN CALCIUM 20 MG ORAL TABLET Take 1 tab daily ATORVASTATIN CALCIUM 61395133427 Active Baltazar Childers MD A ctive FUROSEMIDE 40 MG ORAL TABLET Take one by mouth daily FUROSEMIDE 46557145272 Active Baltazar Childers MD Active LISINOPRIL 20 MG ORAL TABLET Take one by mouth daily at bedtime LISINOPRIL 04986274052 No Longer Active Baltazar Childers MD Active ONETOUCH ULTRA BLUE IN VITRO STRIP Test twice a day 07/11/11 GLUCOSE BLOOD 63540514120 No Longer Active Baltazar Childers MD Acti ve TRUEPLUS LANCETS 33G Test twice a day LANCETS 2941247 6274 Active Beth Carr, RMA Active TRUEDRAW LANCING DEVICE Test twice a day LANCET DEVICES 62675669805 Active Baltazar Childers MD Active TRUETRACK BLOOD GLUCOSE w/Device KIT Test twice a day BLOOD GLUCOSE MONITORING SUPPL 23838000848 Active Baltazar Childers MD Activ e HYDROCODONE-ACETAMINOPHEN 7.5-325 MG ORAL TABLET Take 1 tab every 6-8 hours PRN HYDROCODONE-ACETAMINOPHEN 75387491303 Active Baltazar Nickerson MD Active GABAPENTIN 300 MG ORAL CAPSULE 1 po qd x 2 days, then 1 po BID x 2 days, then 1 po TID GABAPENTIN 51733504696 No Longer Active Baltazar Childers MD Active NAPROXEN 500 MG ORAL TABLET 1 tablet by mouth twice daily NAPROXEN 46639661154 No Longer Active Baltzaar Childers MD Active PROAIR HFA 108 (90 Base) MCG/ACT INHALATION AEROSOL SO LUTION 2 puffs four times a day as needed ALBUTEROL SULFATE 45375501444 Active Paul Childers MD Active DEPO-TESTOSTERONE 200 MG/ML INTRAMUSCULAR SOLUTION as directed TESTOSTERONE CYPIONATE 12648119059 No Longer Active Baltazar Childers MD Active LIPITOR 20 MG ORAL TABLET Take one by mouth daily in evening ATORVASTATIN CALCIUM 27387471185 No Longer Active Baltazar Childers MD Active CRESTOR 10 MG ORAL TABLET 1 by mouth every day ROSUVASTATIN CALCIUM 39236188488 No Longer Active Baltazar Childers MD Active PHENTERMINE HCL 37.5 MG ORAL TABLET Take one by mouth daily PHENTERMINE HCL 49201459893 No Longer Active Baltazar Childers MD Ac tive TIZANIDINE HCL 4 MG ORAL TABLET 1 daily as needed for muscle spa sm TIZANIDINE HCL 96522752400 No Longer Active Dawna Salazar RN Active [id number] 50-325-40 MG ORAL TABLET 1 fo ur times a day as needed for heacache [id number] 07020653293 Active KENDALL Juarez Active SUMATRIPTAN SUCCINATE 100 MG ORAL TABLET 1 tablet by m outh at onset of migraine as needed SUMATRIPTAN SUCCINATE 93081779204 Active Beth trujillo, KENDALL Active LORATADINE 10 MG ORAL TABLET Take one by mouth daily LORATADINE 40580373575 Active Baltazar Childers MD Active OMEPRAZOLE 20 MG ORAL CAPSULE DELAYED RELEASE Take one by mouth jostin ly OMEPRAZOLE 07742521107 Active Baltazar Childers MD Active HYDROXYZINE HCL 25 MG ORAL TABLET Take one by mouth daily HYDROXYZINE HCL 69171542596 Active Baltazar Childers MD Active ALPRAZOLAM 1 MG ORAL TABLET 1 [facility] 52975300915 Active Baltazar Childers MD Active METFORMIN HCL 1000 MG ORAL TABLET Take one by mouth twice daily METFORMIN HCL 91977915828 Active Baltazar Childers MD Active TIZANIDINE HCL 4 MG ORAL TABLET 1 daily as needed for muscle spa sm TIZANIDINE HCL 4 MG ORAL TABLET 596146 TIZANIDINE HCL Inactive PHENTERMINE HCL 37.5 MG ORAL TABLET Take one by mouth daily PHENTERMINE HCL 37.5 MG ORAL TABLET 640816 PHENTERMINE HCL Inac tive CRESTOR 10 MG ORAL TABLET 1 by mouth every day CRESTOR 10 MG ORAL TABLET 714147 ROSUVASTATIN CALCIUM Inactive LIPITOR 20 MG ORAL TABLET Take one by mouth daily in evening LIPITOR 20 MG ORAL TABLET 035351 ATORVASTATIN CALCIUM Inactive DEPO-TESTOSTERONE 200 MG/ML INTRAMUSCULAR SOLUTION as directed DEPO-TESTOSTERONE 200 MG/ML INTRAMUSCULAR SOLUTION 8358701 RUFINO TOSTERONE CYPIONATE Inactive NAPROXEN 500 MG ORAL TABLET 1 tablet by mouth twice daily NAPROXEN 500 MG ORAL TABLET 629458 NAPROXEN Inactive GABAPENTIN 300 MG ORAL CAPSULE 1 po qd x 2 days, then 1 po BID x 2 days, then 1 po TID GABAPENTIN 300 MG ORAL CAPSULE 870202 GABAP ENTIN Inactive ONETOUCH ULTRA BLUE IN VITRO STRIP Test twice a day 07/11/11 ONETOUCH ULTRA BLUE IN VITRO STRIP GLUCOSE BLOOD Inact amie NAPROXEN SODIUM 220 MG ORAL TABLET 1 three times a day as needed NAPROXEN SODIUM 220 MG ORAL TABLET 386592 NAPROXEN SODI UM Inactive TOUJEO SOLOSTAR 300 UNIT/ML SUBCUTANEOUS SOLUTION PEN- INJECTOR 10 units SC daily TOUJEO SOLOSTAR 300 UNIT/ML SUBCUTANEOUS SOLUTION PEN-INJECTOR INSULIN GLARGINE Inactive SUCRALFATE 1 GM ORAL TABLET 1 four times a day to coat the stoma ch SUCRALFATE 1 GM ORAL TABLET 577357 SUCRALFATE Inac tive GABAPENTIN 300 MG ORAL CAPSULE 1 three times a day 201 12/03/26 GABAPENTIN 300 MG ORAL CAPSULE 249687 GABAPENTIN Inactive TRAMADOL HCL 50 MG ORAL TABLET 1 twice a day as needed for pain TRAMADOL HCL 50 MG ORAL TABLET 552124 TRAMADOL HCL I nactive ZITHROMAX Z-ISAIAS 250 MG ORAL TABLET Take two tablets to day and then 1 tablet daily for 4 days ZITHROMAX Z-ISAIAS 250 MG ORAL TAB LET 913960 AZITHROMYCIN Inactive Immunizations Vaccine Administration Date Value Standard Floyd cription influenza immunization (Flu Vax) has been administered 05/11 Done according to patient influenza virus vaccine, unspecified for mulation pneumococcal immunization administered Pneumovax 23 [CVX33] pneumococcal polysaccharide vaccine, 23 valent Seasonal influenza vaccine, injectable, containing preservative, for > 3 years old (Afluria, FluLaval, Fluzone, Fluvirin, Fluarix, Agriflu(>= 18 yo)) Fluzone (>3 yrs.) [RRH574] Influenza, seasonal, inject able Seasonal influenza vaccine, injectable, containing preservative, for > 3 years old (Afluria, FluLaval, Fluzone, Fluvirin, Fluarix, Agriflu(>= 18 yo)) Fluzone (>3 yrs.) [OXM059] Influenza, seasonal, inject able Vital Signs Date [...] - Chem istry sodium, serum 139 mmol/L 649-266 9527/06/26 potassium, serum 4.8 mmol/L 3.5-5.2 chloride, serum [...] total hemoglobin 7.6 % 4.3-6.0 Lab Report: Lipid Panel, Thyroid Stimula ting Hormone (L) - Chemistry cholesterol, serum 209 mg/dL 222-777 4510/12/27 triglyceride, serum, fasting 329 mg/dL 30-200 HDL cholesterol, serum 56 mg/dL 32-60 LDL cholesterol, serum 87 mg/dL 0-130 TSH 3.60 m[iU]/mL 0.36-3.74 Lab Report: Thyroid Stimulating Hormone (L) - Chemistry TSH 8.56 m[iU]/mL 0.36-3.74 Office Visit: Meds Check - Toxicology drug screen, urine, qualitative negative Encounters Code Encounter Date Provider Facility CPT-73357 [id number] Vst-Est Level IV 15:30:55 [facility] Charlie Childers MD [facility] CPT-97966 [id number] Vst-Est Level IV 13:49:06 [facility] Level 4 Est. Patient 17:26:08 [id number] Vst-Est Level V 14:26:27 CDT Aneudy Childers MD [facility]-20315 Level 4 Est. Patient 17:05:37 CDT Baltaazr Childers MD [facility]-30604 Level 4 Est. Patient 16:21:19 [facility] Baltazar Childers MD [facility]-41269 Level 4 Est. Patient 12:25:11 CDT Baltazar Childers MD [facility]-65233 Level 4 Est. Patient 14:22:31 CDT Baltazar Childers MD [facility]-60310 Level 4 Est. Patient 15:44:38 CDT Shonna Parker APRN [facility]-86863 Level 4 Est. Patient 11:34:17 CDT Baltazar Childers MD [facility]-89992 Level 3 Est. Patient 16:40:40 CDT Baltazar Childers MD [facility]-37002 Level 4 Est. Patient 10:41:24 CDT Baltazar Childers MD [facility]-26674 Level 4 Est. Patient 16:01:48 CDT Baltazar Childers MD [facility]-91799 Level 4 Est. Patient 16:54:07 [facility] [facility] Baltazar Childers MD [facility]-06334 Level 4 Est. Patient 15:42:12 CDT Baltazar Childers MD [facility] CPT-18771 Level 4 Est. Patient 11:29:55 CDT Baltazar Childers MD [facility] CPT-88295 Level 4 Est. Patient 14:15:19 CDT Baltazar Childers MD [facility] CPT-59828 Level 4 Est. Patient 12:20:13 CDT Baltazar Childers MD [facility] CPT-50002 Level 4 Est. Patient 14:52:45 [employer] [employer] Baltazar Childers MD [facility] CPT-19164 Level 4 Est. Patient 14:18:34 [employer] Baltazar Childers MD [facility] CPT-70549 Level 4 Est. Patient 15:18:29 CDT Baltazar Childers MD [facility] CPT-42558 Level 3 Est. Patient 12:45:34 CDT Baltazar Childers MD [facility] CPT-08171 Level 3 Est. Patient 10:10:11 CDT Baltazar Childers MD [facility] CPT-49697 Level 3 Est. Patient 14:07:50 CDT Baltazar Childers MD [facility] CPT-13760 Level 4 Est. Patient 12:26:10 [employer] Baltazar Childers MD [facility] CPT-78856 Level 4 Est. Patient 14:45:38 CDT Baltazar Childers MD [facility] CPT-14581 Level 4 New Patient 12:30:48 CDT Baltazar hinton MD [facility] Procedures Code Procedure Name Date Entry Date Standard Desc ription CPT-000 Give Appropriate Flu Vaccine 12:25:14 CDT 2 CPT-68628 First Vx - Ix admin via ID I M or jet injects without counseling by physician 13:08:59 CDT CPT-35949 Fluzone Quadrivalent Intramuscular Suspe nsion 0.5 ML 13:08:59 CDT CPT-28511 Venipuncture Draw Fee 12:04:12 CDT CPT-69709 Lipid - LAB USE ONLY 17:39:15 [employer] [facility] 9 CPT-20697 HGBA1C - LAB USE ONLY 17:39:15 [employer] CPT-98786 CMP - LAB USE ONLY 17:39:14 [employer] CPT-31720 Venipuncture Draw Fee 17:39:14 [employer] CPT-69129 First Vx - Ix admin via ID I M or jet injects without counseling by physician 16:55:17 [employer] CPT-30215 Fluzone Quadrivalent Intramuscular Suspe nsion 0.5 ML 16:55:17 [employer] CPT-37278 Renal Panel - LAB USE ONLY 17:39:20 CDT 201 10/31/07 CPT-79224 CBC - LAB USE ONLY 17:39:20 CDT CPT-52411 Venipuncture Draw Fee 17:39:20 CDT CPT-12259 Venipuncture Draw Fee 14:33:30 CDT CPT-55604 Renal Panel - LAB USE ONLY 14:33:30 CDT 201 10/31/07 CPT-97319 CBC - LAB USE ONLY 14:33:29 CDT CPT-67396 Venipuncture Draw Fee 14:50:21 [employer] [employer] CPT-05967 Immunization Single Admin 17:35:35 CDT 2014 CPT-36143 Fluzone Quadrivalent preservative free ( >=3yrs.) 17:35:35 CDT CPT-54887 Venipuncture Draw Fee 12:10:27 [employer] CPT-49378 Fluzone Quadrivalent Intramuscular Suspe nsion 0.5 ML 10:49:13 CDT CPT-86954 First Vx Component - Ix admi n via ID IM or jet inj without physician counseling 15:17:19 [employer] [facility] CPT-56209 Pneumovax 15:17:19 [employer] CPT-78408 Pneumovax 14:52:45 [employer] [employer] CPT-26682 Venipuncture Draw Fee 14:06:30 [employer] [employer] CPT-000 Give Appropriate Flu Vaccine 14:18:34 [employer] [employer] 2 CPT-69933 Administration single or combination vac cine inc oral 14:46:00 [employer] CPT-63159 Influenza split virus > age 3 14:46:00 [employer] CPT-OV Office Visit 19:13:16 CDT CPT-20831 Zostavax 18:41:56 CDT CPT-90074 Administration single or combination vac cine inc oral 12:56:39 CDT CPT-53748 Zoster Vaccine (Zostavax) 12:56:39 CDT 2012 CPT-72864 Venipuncture Draw Fee 10:58:57 CDT CPT-45449 Sono pelvis non OB uterus ovaries cervix 17:45:04 CDT CPT-62473 Sono retroperitoneal complete kidneys an d bladder 17:14:36 CDT CPT-OV Office Visit 14:59:38 [employer] [employer] CPT-J1070 Depo Testosterone 100 mg 14:50:13 CDT 03/05 CPT-00327 Abx/Therapy Injection 14:50:13 CDT CPT-32102 Administration single or combination vac cine inc oral 14:34:43 CDT CPT-39877 Influenza split virus > age 3 14:34:43 CDT CPT-J1070 Depo Testosterone 100 mg 17:37:13 CDT 01/11 CPT-17574 Abx/Therapy Injection 17:37:13 CDT CPT-61929 Venipuncture Draw Fee 16:30:13 CDT CPT-57423 Venipuncture Draw Fee 16:29:43 CDT CPT-J1070 Depo Testosterone 100 mg 14:45:38 CDT 01/11
--- OUTSIDE RECORDS SUMMARY | 2019-10-27 11:54 | XMS REPORT | Clinical Summary ---
Author Author Admin, [employer] Address Unknown Phone Unavailable Allergies, Adverse Reactions, [...] Carpal tunnel syndrome OBESITY 278.00 Inactive Baltazar Chidlers MD Obesity, unspecified Morbid obesity 278.01 Refinement [...] day as needed for pain TRAMADOL HCL 79638703977 No Longer Active Baltazar Childers MD Active ROBAXIN 500 MG ORAL TABLET Take 1.5 (one and one half) tabs once daily METHOCARBAMOL 36575195005 Active Baltazar Childers MD Active SYNTHROID 112 MCG ORAL TABLET Take one tablet a day LEVOTHYROXINE SODIUM 86933090573 Active Baltazar Childers MD Active TRUE METRIX AIR GLUCOSE METER DEVICE Use as directed BLOOD GLUCOSE MONITORING SUPPL 68736774386 Active Baltazar Childers MD Activ e TRUE METRIX BLOOD GLUCOSE TEST IN VITRO STRIP test blood sug ar BID Dx: E11.65 GLUCOSE BLOOD 90190121885 Active KENDALL Juarez Active NORTRIPTYLINE HCL 50 MG ORAL CAPSULE 1 twice a day for neuropathy 2 NORTRIPTYLINE HCL 75401226083 Active Baltazar Childers MD Acti ve ASPIRIN 81 MG TBEC Take one (1) tablet by mouth daily ASPIRIN 96171315541 Active Blatazar Childers MD Active GABAPENTIN 300 MG ORAL CAPSULE 1 three times a day 201 12/03/26 GABAPENTIN 41697629009 No Longer Active Baltazar Childers MD Activ e LISINOPRIL 20 MG ORAL TABLET 1 tablet by mouth daily at night 2016 LISINOPRIL 33846251026 Active Baltazar Childers MD Active ZITHROMAX Z-ISAIAS 250 MG ORAL TABLET Take two tablets to day and then 1 tablet daily for 4 days AZITHROMYCIN 23771050088 No Longer A ctive Baltazar Childers MD Active LANTUS SOLOSTAR 100 UNIT/ML SUBCUTANEOUS SOLUTION PEN- INJECTOR 30 units SC daily INSULIN GLARGINE 83472186138 Active Baltazar Childers MD Active AMLODIPINE BESYLATE 5 MG ORAL TABLET 1 tab daily for HTN AMLODIPINE BESYLATE 24947657201 Active Baltazar Childers MD Active GLIPIZIDE 10 MG ORAL TABLET take 2 tablets twice daily GLIPIZIDE 69770029428 Active Baltazar Childers MD Active SUCRALFATE 1 GM ORAL TABLET 1 four times a day to coat the stoma ch SUCRALFATE 11490846617 No Longer Active Baltazar Childers MD Active PEN NEEDLES 31G X 6 MM use 1 daily INSULIN PEN NE EDLE 71941581985 Active KENDALL Juarez Active TOUJEO SOLOSTAR 300 UNIT/ML SUBCUTANEOUS SOLUTION PEN- INJECTOR 10 units SC daily INSULIN GLARGINE 00209376186 No Longer Active Rola ARGUETA Active NAPROXEN SODIUM 220 MG ORAL TABLET 1 three times a day as needed NAPROXEN SODIUM 37177650089 No Longer Active Baltazar Childers MD Active ATORVASTATIN CALCIUM 20 MG ORAL TABLET Take 1 tab daily ATORVASTATIN CALCIUM 78819145901 Active Baltazar Childers MD A ctive FUROSEMIDE 40 MG ORAL TABLET Take one by mouth daily FUROSEMIDE 17597510195 Active Baltazar Childers MD Active LISINOPRIL 20 MG ORAL TABLET Take one by mouth daily at bedtime LISINOPRIL 27666780566 No Longer Active Baltazar Childers MD Active ONETOUCH ULTRA BLUE IN VITRO STRIP Test twice a day 07/11/11 GLUCOSE BLOOD 07850459199 No Longer Active Baltazar Childers MD Acti ve TRUEPLUS LANCETS 33G Test twice a day LANCETS 1905780 1575 Active Beth Carr, RMA Active TRUEDRAW LANCING DEVICE Test twice a day LANCET DEVICES 00469068924 Active Baltazar Childers MD Active TRUETRACK BLOOD GLUCOSE w/Device KIT Test twice a day BLOOD GLUCOSE MONITORING SUPPL 16174761849 Active Baltazar Childers MD Activ e HYDROCODONE-ACETAMINOPHEN 7.5-325 MG ORAL TABLET Take 1 tab every 6-8 hours PRN HYDROCODONE-ACETAMINOPHEN 00525237392 Active Baltazar Nickerson MD Active GABAPENTIN 300 MG ORAL CAPSULE 1 po qd x 2 days, then 1 po BID x 2 days, then 1 po TID GABAPENTIN 21332566124 No Longer Active Baltazar Childers MD Active NAPROXEN 500 MG ORAL TABLET 1 tablet by mouth twice daily NAPROXEN 92994188118 No Longer Active Baltazar Childers MD Active PROAIR HFA 108 (90 Base) MCG/ACT INHALATION AEROSOL SO LUTION 2 puffs four times a day as needed ALBUTEROL SULFATE 14816591949 Active Paul Childers MD Active DEPO-TESTOSTERONE 200 MG/ML INTRAMUSCULAR SOLUTION as directed TESTOSTERONE CYPIONATE 07251075355 No Longer Active Baltazar Childers MD Active LIPITOR 20 MG ORAL TABLET Take one by mouth daily in evening ATORVASTATIN CALCIUM 75758881483 No Longer Active Baltazar Childers MD Active CRESTOR 10 MG ORAL TABLET 1 by mouth every day ROSUVASTATIN CALCIUM 49083306905 No Longer Active Baltazar Childers MD Active PHENTERMINE HCL 37.5 MG ORAL TABLET Take one by mouth daily PHENTERMINE HCL 17003497103 No Longer Active Baltazar Childers MD Ac tive TIZANIDINE HCL 4 MG ORAL TABLET 1 daily as needed for muscle spa sm TIZANIDINE HCL 97101366177 No Longer Active Dawna Salazar RN Active [id number] 50-325-40 MG ORAL TABLET 1 fo ur times a day as needed for heacache [id number] 26335783850 Active KENDALL Juarez Active SUMATRIPTAN SUCCINATE 100 MG ORAL TABLET 1 tablet by m outh at onset of migraine as needed SUMATRIPTAN SUCCINATE 27004577741 Active KENDALL Restrepo Active LORATADINE 10 MG ORAL TABLET Take one by mouth daily LORATADINE 65900163082 Active Baltazar Childers MD Active OMEPRAZOLE 20 MG ORAL CAPSULE DELAYED RELEASE Take one by mouth jostin ly OMEPRAZOLE 46008532277 Active Baltazar Childers MD Active HYDROXYZINE HCL 25 MG ORAL TABLET Take one by mouth daily HYDROXYZINE HCL 92974710545 Active Baltazar Childers MD Active ALPRAZOLAM 1 MG ORAL TABLET 1 [facility] AL[facility]AM 76336198395 Active Baltazar Childers MD Active METFORMIN HCL 1000 MG ORAL TABLET Take one by mouth twice daily METFORMIN HCL 27792441832 Active Baltazar Childers MD Active TIZANIDINE HCL 4 MG ORAL TABLET 1 daily as needed for muscle spa sm TIZANIDINE HCL 4 MG ORAL TABLET 903407 TIZANIDINE HCL Inactive PHENTERMINE HCL 37.5 MG ORAL TABLET Take one by mouth daily PHENTERMINE HCL 37.5 MG ORAL TABLET 364189 PHENTERMINE HCL Inac tive CRESTOR 10 MG ORAL TABLET 1 by mouth every day CRESTOR 10 MG ORAL TABLET 658959 ROSUVASTATIN CALCIUM Inactive LIPITOR 20 MG ORAL TABLET Take one by mouth daily in evening LIPITOR 20 MG ORAL TABLET 086152 ATORVASTATIN CALCIUM Inactive DEPO-TESTOSTERONE 200 MG/ML INTRAMUSCULAR SOLUTION as directed DEPO-TESTOSTERONE 200 MG/ML INTRAMUSCULAR SOLUTION 5020091 RUFINO TOSTERONE CYPIONATE Inactive NAPROXEN 500 MG ORAL TABLET 1 tablet by mouth twice daily NAPROXEN 500 MG ORAL TABLET 108608 NAPROXEN Inactive GABAPENTIN 300 MG ORAL CAPSULE 1 po qd x 2 days, then 1 po BID x 2 days, then 1 po TID GABAPENTIN 300 MG ORAL CAPSULE 364959 GABAP ENTIN Inactive ONETOUCH ULTRA BLUE IN VITRO STRIP Test twice a day 07/11/11 ONETOUCH ULTRA BLUE IN VITRO STRIP GLUCOSE BLOOD Inact amie NAPROXEN SODIUM 220 MG ORAL TABLET 1 three times a day as needed NAPROXEN SODIUM 220 MG ORAL TABLET 711407 NAPROXEN SODI UM Inactive TOUJEO SOLOSTAR 300 UNIT/ML SUBCUTANEOUS SOLUTION PEN- INJECTOR 10 units SC daily TOUJEO SOLOSTAR 300 UNIT/ML SUBCUTANEOUS SOLUTION PEN-INJECTOR INSULIN GLARGINE Inactive SUCRALFATE 1 GM ORAL TABLET 1 four times a day to coat the stoma ch SUCRALFATE 1 GM ORAL TABLET 633011 SUCRALFATE Inac tive GABAPENTIN 300 MG ORAL CAPSULE 1 three times a day 201 12/03/26 GABAPENTIN 300 MG ORAL CAPSULE 723415 GABAPENTIN Inactive TRAMADOL HCL 50 MG ORAL TABLET 1 twice a day as needed for pain TRAMADOL HCL 50 MG ORAL TABLET 093144 TRAMADOL HCL I nactive ZITHROMAX Z-ISAIAS 250 MG ORAL TABLET Take two tablets to day and then 1 tablet daily for 4 days ZITHROMAX Z-ISAIAS 250 MG ORAL TAB LET 706523 AZITHROMYCIN Inactive Immunizations Vaccine Administration Date Value Standard Floyd cription influenza immunization (Flu Vax) has been administered 05/11 Done according to patient influenza virus vaccine, unspecified for mulation pneumococcal immunization administered Pneumovax 23 [CVX33] pneumococcal polysaccharide vaccine, 23 valent Seasonal influenza vaccine, injectable, containing preservative, for > 3 years old (Afluria, FluLaval, Fluzone, Fluvirin, Fluarix, Agriflu(>= 18 yo)) Fluzone (>3 yrs.) [[id number]] Influenza, seasonal, inject able Seasonal influenza vaccine, injectable, containing preservative, for > 3 years old (Afluria, FluLaval, Fluzone, Fluvirin, Fluarix, Agriflu(>= 18 yo)) Fluzone (>3 yrs.) [[id number]] Influenza, seasonal, inject able Vital Signs Date [...] - Chem istry sodium, serum 139 mmol/L 987-871 0478/06/26 potassium, serum 4.8 mmol/L 3.5-5.2 chloride, serum [...] (L) - Chemistry cholesterol, serum 209 mg/dL 188-673 5248/12/27 triglyceride, serum, fasting 329 mg/dL 30-200 HDL cholesterol, serum 56 mg/dL 32-60 LDL cholesterol, serum 87 mg/dL 0-130 TSH 3.60 m[iU]/mL 0.36-3.74 Lab Report: Thyroid Stimulating Hormone (L) - Chemistry TSH 8.56 m[iU]/mL 0.36-3.74 Office Visit: Meds Check - Toxicology drug screen, urine, qualitative negative Encounters Code Encounter Date Provider Facility CPT-54347 [id number] Vst-Est Level IV 15:30:55 ION IMPLANT MACHINE OPERATOR Charlie Childers MD [facility] CPT-36957 [id number] Vst-Est Level IV 13:49:06 [facility] CPT-44828 Level 4 Est. Patient 17:26:08 CD[facility] [id number] Vst-Est Level V 14:26:27 CDT Aneudy Childers MD [facility]-20766 Level 4 Est. Patient 17:05:37 CDT Baltazar Childers MD [facility]-60668 Level 4 Est. Patient 16:21:19 ION IMPLANT MACHINE OPERATOR Baltazar Childers MD [facility]-40623 Level 4 Est. Patient 12:25:11 CDT Baltazar Childers MD [facility]-23129 Level 4 Est. Patient 14:22:31 CDT Baltazar Childers MD [facility]-73992 Level 4 Est. Patient 15:44:38 [facility] Est. Patient 11:34:17 CDT Baltazar Childers MD [facility]-46783 Level 3 Est. Patient 16:40:40 CDT Baltazar Childers MD [facility]-75743 Level 4 Est. Patient 10:41:24 CDT Baltazar Childers MD [facility]-74816 Level 4 Est. Patient 16:01:48 CDT Baltazar Childers MD [facility]-74148 Level 4 Est. Patient 16:54:07 ION IMPLANT MACHINE OPERATOR Baltazar Childers MD [facility]-95318 Level 4 Est. Patient 15:42:12 CDT Baltazar Childers MD [facility] CPT-79100 Level 4 Est. Patient 11:29:55 CDT Baltazar Childers MD [facility] CPT-29375 Level 4 Est. Patient 14:15:19 CDT Baltazar Childers MD [facility] CPT-67672 Level 4 Est. Patient 12:20:13 CDT Baltazar Childers MD [facility] CPT-78220 Level 4 Est. Patient 14:52:45 ION IMPLANT MACHINE OPERATOR Baltazar Childers MD [facility] CPT-29890 Level 4 Est. Patient 14:18:34 ION IMPLANT MACHINE OPERATOR Baltazar Childers MD [facility] CPT-21498 Level 4 Est. Patient 15:18:29 CDT Baltazar Childers MD [facility] CPT-78875 Level 3 Est. Patient 12:45:34 CDT Baltazar Childers MD [facility] CPT-77958 Level 3 Est. Patient 10:10:11 CDT Baltazar Childers MD [facility] CPT-08711 Level 3 Est. Patient 14:07:50 CDT Baltazar Childers MD [facility] CPT-74636 Level 4 Est. Patient 12:26:10 ION IMPLANT MACHINE OPERATOR Baltazar Childers MD [facility] CPT-11082 Level 4 Est. Patient 14:45:38 CDT Baltazar Childers MD [facility] CPT-48550 Level 4 New Patient 12:30:48 CDT Baltazar hinton MD [facility] Procedures Code Procedure Name Date Entry Date Standard Desc ription CPT-000 Give Appropriate Flu Vaccine 12:25:14 CDT 2 CPT-81182 First Vx - Ix admin via ID I M or jet injects without counseling by physician 13:08:59 CDT CPT-10906 Fluzone Quadrivalent Intramuscular Suspe nsion 0.5 ML 13:08:59 CDT CPT-11253 Venipuncture Draw Fee 12:04:12 CDT CPT-67585 Lipid - LAB USE ONLY 17:39:15 ION IMPLANT MACHINE OPERATOR 9 CPT-49542 HGBA1C - LAB USE ONLY 17:39:15 ION IMPLANT MACHINE OPERATOR CPT-05401 CMP - LAB USE ONLY 17:39:14 ION IMPLANT MACHINE OPERATOR CPT-07331 Venipuncture Draw Fee 17:39:14 ION IMPLANT MACHINE OPERATOR CPT-37678 First Vx - Ix admin via ID I M or jet injects without counseling by physician 16:55:17 ION IMPLANT MACHINE OPERATOR CPT-41687 Fluzone Quadrivalent Intramuscular Suspe nsion 0.5 ML 16:55:17 ION IMPLANT MACHINE OPERATOR CPT-39143 Renal Panel - LAB USE ONLY 17:39:20 CDT 201 10/31/07 CPT-31028 CBC - LAB USE ONLY 17:39:20 CDT CPT-33920 Venipuncture Draw Fee 17:39:20 CDT CPT-14984 Venipuncture Draw Fee 14:33:30 CDT CPT-30607 Renal Panel - LAB USE ONLY 14:33:30 CDT 201 10/31/07 CPT-21371 CBC - LAB USE ONLY 14:33:29 CDT CPT-33295 Venipuncture Draw Fee 14:50:21 ION IMPLANT MACHINE OPERATOR CPT-42602 Immunization Single Admin 17:35:35 CDT 2014 CPT-87423 Fluzone Quadrivalent preservative free ( >=3yrs.) 17:35:35 CDT CPT-36513 Venipuncture Draw Fee 12:10:27 ION IMPLANT MACHINE OPERATOR CPT-17163 Fluzone Quadrivalent Intramuscular Suspe nsion 0.5 ML 10:49:13 CDT CPT-70023 First Vx Component - Ix admi n via ID IM or jet inj without physician counseling 15:17:19 ION IMPLANT MACHINE OPERATOR CPT-25210 Pneumovax 23 15:17:19 ION IMPLANT MACHINE OPERATOR CPT-41177 Pneumovax 14:52:45 ION IMPLANT MACHINE OPERATOR CPT-93893 Venipuncture Draw Fee 14:06:30 ION IMPLANT MACHINE OPERATOR CPT-000 Give Appropriate Flu Vaccine 14:18:34 ION IMPLANT MACHINE OPERATOR 2 CPT-86511 Administration single or combination vac cine inc oral 14:46:00 ION IMPLANT MACHINE OPERATOR CPT-99047 Influenza split virus > age 3 14:46:00 ION IMPLANT MACHINE OPERATOR CPT-OV Office Visit 19:13:16 CDT CPT-64430 Zostavax 18:41:56 CDT CPT-98558 Administration single or combination vac cine inc oral 12:56:39 CDT CPT-35162 Zoster Vaccine (Zostavax) 12:56:39 CDT 2012 CPT-62692 Venipuncture Draw Fee 10:58:57 CDT CPT-47324 Sono pelvis non OB uterus ovaries cervix 17:45:04 CDT CPT-69116 Sono retroperitoneal complete kidneys an d bladder 17:14:36 CDT CPT-OV Office Visit 14:59:38 ION IMPLANT MACHINE OPERATOR CPT-J1070 Depo Testosterone 100 mg 14:50:13 CDT 03/05 CPT-82135 Abx/Therapy Injection 14:50:13 CDT CPT-94421 Administration single or combination vac cine inc oral 14:34:43 CDT CPT-03199 Influenza split virus > age 3 14:34:43 CDT CPT-J1070 Depo Testosterone 100 mg 17:37:13 CDT 01/11 CPT-76668 Abx/Therapy Injection 17:37:13 CDT CPT-12907 Venipuncture Draw Fee 16:30:13 CDT CPT-99090 Venipuncture Draw Fee 16:29:43 CDT CPT-J1070 Depo Testosterone 100 mg 14:45:38 CDT 01/11
--- OUTSIDE RECORDS SUMMARY | 2019-10-27 11:54 | XMS REPORT | Clinical Summary ---
Author Author Admin, Elba Lance [facility] Address Unknown Phone Unavailable Allergies, Adverse [...] ronary atherosclerosis of unspecified type of vessel, poarch or graft OTH NONSPC ABN FINDNG RAD&OTH [...] day as needed for pain TRAMADOL HCL 68591997504 No Longer Active Baltazar Childers MD Active ROBAXIN 500 MG ORAL TABLET Take 1.5 (one and one half) tabs once daily METHOCARBAMOL 35682083671 Active Baltazar Childers MD Active SYNTHROID 112 MCG ORAL TABLET Take one tablet a day LEVOTHYROXINE SODIUM 80196202030 Active Baltazar Childers MD Active TRUE METRIX AIR GLUCOSE METER DEVICE Use as directed BLOOD GLUCOSE MONITORING SUPPL 38815809427 Active Baltazar Childers MD Activ e TRUE METRIX BLOOD GLUCOSE TEST IN VITRO STRIP test blood sug ar BID Dx: E11.65 GLUCOSE BLOOD 08554821266 Active KENDALL Juarez Active NORTRIPTYLINE HCL 50 MG ORAL CAPSULE 1 twice a day for neuropathy 2 NORTRIPTYLINE HCL 45701375566 Active Baltazar Childers MD Acti ve ASPIRIN 81 MG TBEC Take one (1) tablet by mouth daily ASPIRIN 36651477874 Active Baltazar Childers MD Active GABAPENTIN 300 MG ORAL CAPSULE 1 three times a day 201 12/03/26 GABAPENTIN 80762234774 No Longer Active Baltazar Childers MD Activ e LISINOPRIL 20 MG ORAL TABLET 1 tablet by mouth daily at night 2016 LISINOPRIL 26079232880 Active Baltazar Childers MD Active ZITHROMAX Z-ISAIAS 250 MG ORAL TABLET Take two tablets to day and then 1 tablet daily for 4 days AZITHROMYCIN 54615512282 No Longer A ctive Baltazar Childers MD Active LANTUS SOLOSTAR 100 UNIT/ML SUBCUTANEOUS SOLUTION PEN- INJECTOR 30 units SC daily INSULIN GLARGINE 70247721891 Active Baltazar Childers MD Active AMLODIPINE BESYLATE 5 MG ORAL TABLET 1 tab daily for HTN AMLODIPINE BESYLATE 36839933251 Active Baltazar Childers MD Active GLIPIZIDE 10 MG ORAL TABLET take 2 tablets twice daily GLIPIZIDE 61539795062 Active Baltazar Childers MD Active SUCRALFATE 1 GM ORAL TABLET 1 four times a day to coat the stoma ch SUCRALFATE 93568600837 No Longer Active Baltazar Childers MD Active PEN NEEDLES 31G X 6 MM use 1 daily INSULIN PEN NE EDLE 57431324625 Active KENDALL Juarez Active TOUJEO SOLOSTAR 300 UNIT/ML SUBCUTANEOUS SOLUTION PEN- INJECTOR 10 units SC daily INSULIN GLARGINE 75472525448 No Longer Active Rola ARGUETA Active NAPROXEN SODIUM 220 MG ORAL TABLET 1 three times a day as needed NAPROXEN SODIUM 71556104430 No Longer Active Baltazar Childers MD Active ATORVASTATIN CALCIUM 20 MG ORAL TABLET Take 1 tab daily ATORVASTATIN CALCIUM 36743966532 Active Baltazar Childers MD A ctive FUROSEMIDE 40 MG ORAL TABLET Take one by mouth daily FUROSEMIDE 47252874855 Active Baltazar Childers MD Active LISINOPRIL 20 MG ORAL TABLET Take one by mouth daily at bedtime LISINOPRIL 54727899977 No Longer Active Baltazar Childers MD Active ONETOUCH ULTRA BLUE IN VITRO STRIP Test twice a day 07/11/11 GLUCOSE BLOOD 14495698131 No Longer Active Baltazar Childers MD Acti ve TRUEPLUS LANCETS 33G Test twice a day LANCETS 6067673 2888 Active Beth Carr, RMA Active TRUEDRAW LANCING DEVICE Test twice a day LANCET DEVICES 78726261235 Active Baltazar Childers MD Active TRUETRACK BLOOD GLUCOSE w/Device KIT Test twice a day BLOOD GLUCOSE MONITORING SUPPL 11851445861 Active Baltazar Childers MD Activ e HYDROCODONE-ACETAMINOPHEN 7.5-325 MG ORAL TABLET Take 1 tab every 6-8 hours PRN HYDROCODONE-ACETAMINOPHEN 24702302980 Active Baltazar Nickerson MD Active GABAPENTIN 300 MG ORAL CAPSULE 1 po qd x 2 days, then 1 po BID x 2 days, then 1 po TID GABAPENTIN 12719186054 No Longer Active Baltazar Childers MD Active NAPROXEN 500 MG ORAL TABLET 1 tablet by mouth twice daily NAPROXEN 38337678561 No Longer Active Baltazar Childers MD Active PROAIR HFA 108 (90 Base) MCG/ACT INHALATION AEROSOL SO LUTION 2 puffs four times a day as needed ALBUTEROL SULFATE 75320585554 Active Paul Childers MD Active DEPO-TESTOSTERONE 200 MG/ML INTRAMUSCULAR SOLUTION as directed TESTOSTERONE CYPIONATE 48008057486 No Longer Active Baltazar Childers MD Active LIPITOR 20 MG ORAL TABLET Take one by mouth daily in evening ATORVASTATIN CALCIUM 66696748367 No Longer Active Baltazar Childers MD Active CRESTOR 10 MG ORAL TABLET 1 by mouth every day ROSUVASTATIN CALCIUM 34808654054 No Longer Active Baltazar Childers MD Active PHENTERMINE HCL 37.5 MG ORAL TABLET Take one by mouth daily PHENTERMINE HCL 27096043192 No Longer Active Baltazar Childers MD Ac tive TIZANIDINE HCL 4 MG ORAL TABLET 1 daily as needed for muscle spa sm TIZANIDINE HCL 65267435366 No Longer Active Dawna Salazar RN Active [id number] 50-325-40 MG ORAL TABLET 1 fo ur times a day as needed for heacache [id number] 73591968583 Active KENDALL Juarez Active SUMATRIPTAN SUCCINATE 100 MG ORAL TABLET 1 tablet by m outh at onset of migraine as needed SUMATRIPTAN SUCCINATE 53200261558 Active Beth trujillo, KENDALL Active LORATADINE 10 MG ORAL TABLET Take one by mouth daily LORATADINE 95161139576 Active Baltazar Childers MD Active OMEPRAZOLE 20 MG ORAL CAPSULE DELAYED RELEASE Take one by mouth jostin ly OMEPRAZOLE 63034112208 Active Baltazar Childers MD Active HYDROXYZINE HCL 25 MG ORAL TABLET Take one by mouth daily HYDROXYZINE HCL 68936942221 Active Baltazar Childers MD Active ALPRAZOLAM 1 MG ORAL TABLET 1 tablet [facility] 60788002746 Active Baltazar Childers MD Active METFORMIN HCL 1000 MG ORAL TABLET Take one by mouth twice daily METFORMIN HCL 47831977874 Active Baltazar Childers MD Active TIZANIDINE HCL 4 MG ORAL TABLET 1 daily as needed for muscle spa sm TIZANIDINE HCL 4 MG ORAL TABLET 674978 TIZANIDINE HCL Inactive PHENTERMINE HCL 37.5 MG ORAL TABLET Take one by mouth daily PHENTERMINE HCL 37.5 MG ORAL TABLET 962834 PHENTERMINE HCL Inac tive CRESTOR 10 MG ORAL TABLET 1 by mouth every day CRESTOR 10 MG ORAL TABLET 425305 ROSUVASTATIN CALCIUM Inactive LIPITOR 20 MG ORAL TABLET Take one by mouth daily in evening LIPITOR 20 MG ORAL TABLET 907088 ATORVASTATIN CALCIUM Inactive DEPO-TESTOSTERONE 200 MG/ML INTRAMUSCULAR SOLUTION as directed DEPO-TESTOSTERONE 200 MG/ML INTRAMUSCULAR SOLUTION 0053889 RUFINO TOSTERONE CYPIONATE Inactive NAPROXEN 500 MG ORAL TABLET 1 tablet by mouth twice daily NAPROXEN 500 MG ORAL TABLET 583867 NAPROXEN Inactive GABAPENTIN 300 MG ORAL CAPSULE 1 po qd x 2 days, then 1 po BID x 2 days, then 1 po TID GABAPENTIN 300 MG ORAL CAPSULE 213369 GABAP ENTIN Inactive ONETOUCH ULTRA BLUE IN VITRO STRIP Test twice a day 07/11/11 ONETOUCH ULTRA BLUE IN VITRO STRIP GLUCOSE BLOOD Inact amie NAPROXEN SODIUM 220 MG ORAL TABLET 1 three times a day as needed NAPROXEN SODIUM 220 MG ORAL TABLET 031365 NAPROXEN SODI UM Inactive TOUJEO SOLOSTAR 300 UNIT/ML SUBCUTANEOUS SOLUTION PEN- INJECTOR 10 units SC daily TOUJEO SOLOSTAR 300 UNIT/ML SUBCUTANEOUS SOLUTION PEN-INJECTOR INSULIN GLARGINE Inactive SUCRALFATE 1 GM ORAL TABLET 1 four times a day to coat the stoma ch SUCRALFATE 1 GM ORAL TABLET 318859 SUCRALFATE Inac tive GABAPENTIN 300 MG ORAL CAPSULE 1 three times a day 201 12/03/26 GABAPENTIN 300 MG ORAL CAPSULE 398998 GABAPENTIN Inactive TRAMADOL HCL 50 MG ORAL TABLET 1 twice a day as needed for pain TRAMADOL HCL 50 MG ORAL TABLET 455707 TRAMADOL HCL I nactive ZITHROMAX Z-ISAIAS 250 MG ORAL TABLET Take two tablets to day and then 1 tablet daily for 4 days ZITHROMAX Z-ISAIAS 250 MG ORAL TAB LET 179279 AZITHROMYCIN Inactive Immunizations Vaccine Administration Date Value Standard Floyd cription influenza immunization (Flu Vax) has been administered 05/11 Done according to patient influenza virus vaccine, unspecified for mulation pneumococcal immunization administered Pneumovax 23 [CVX33] pneumococcal polysaccharide vaccine, 23 valent Seasonal influenza vaccine, injectable, containing preservative, for > 3 years old (Afluria, FluLaval, Fluzone, Fluvirin, Fluarix, Agriflu(>= 18 yo)) Fluzone (>3 yrs.) [[id number]] Influenza, seasonal, inject able Seasonal influenza vaccine, injectable, containing preservative, for > 3 years old (Afluria, FluLaval, Fluzone, Fluvirin, Fluarix, Agriflu(>= 18 yo)) Fluzone (>3 yrs.) [[id number]] Influenza, seasonal, inject able Vital Signs Date [...] - Chem istry sodium, serum 139 mmol/L 251-673 2531/06/26 potassium, serum 4.8 mmol/L 3.5-5.2 chloride, serum [...] (L) - Chemistry cholesterol, serum 209 mg/dL 552-815 9152/12/27 triglyceride, serum, fasting 329 mg/dL 30-200 HDL cholesterol, serum 56 mg/dL 32-60 LDL cholesterol, serum 87 mg/dL 0-130 TSH 3.60 m[iU]/mL 0.36-3.74 Lab Report: Thyroid Stimulating Hormone (L) - Chemistry TSH 8.56 m[iU]/mL 0.36-3.74 Office Visit: Meds Check - Toxicology drug screen, urine, qualitative negative Encounters Code Encounter Date Provider Facility CPT-00626 [id number] Vst-Est Level IV 15:30:55 NATURAL GAS INSPECTOR Charlie Childers MD [facility] [place] CPT-79521 [id number] Vst-Est Level IV 13:49:06 [facility] Level 4 Est. Patient 17:26:08 [facility] [id number] Vst-Est Level V 14:26:27 CDT Aneudy Childers MD [facility]-83239 Level 4 Est. Patient 17:05:37 CDT Baltazar Childers MD [facility]-99083 Level 4 Est. Patient 16:21:19 NATURAL GAS INSPECTOR Baltazar Childers MD [facility]-34524 Level 4 Est. Patient 12:25:11 CDT Baltaazr Childers MD [facility]-97055 Level 4 Est. Patient 14:22:31 CDT Baltazar Childers MD [facility]-97451 Level 4 Est. Patient 15:44:38 CDT Shonna Parker APRN [facility]-63803 Level 4 Est. Patient 11:34:17 CDT Baltazar Childers MD [facility]-45789 Level 3 Est. Patient 16:40:40 CDT Baltazar Childers MD [facility]-99580 Level 4 Est. Patient 10:41:24 CDT Baltazar Childers MD [facility]-99688 Level 4 Est. Patient 16:01:48 CDT Baltazar Childers MD [facility]-64341 Level 4 Est. Patient 16:54:07 NATURAL GAS INSPECTOR Baltazar Childers MD [facility]-77580 Level 4 Est. Patient 15:42:12 CDT Baltazar Childers MD [facility] CPT-03972 Level 4 Est. Patient 11:29:55 CDT Baltazar Childers MD [facility] CPT-06616 Level 4 Est. Patient 14:15:19 CDT Baltazar Childers MD [facility] CPT-00769 Level 4 Est. Patient 12:20:13 CDT Baltazar Childers MD [facility] CPT-79869 Level 4 Est. Patient 14:52:45 NATURAL GAS INSPECTOR Baltazar Childers MD [facility] CPT-25447 Level 4 Est. Patient 14:18:34 NATURAL GAS INSPECTOR Baltazar Childers MD [facility] CPT-75058 Level 4 Est. Patient 15:18:29 CDT Baltazar Childers MD [facility] CPT-05969 Level 3 Est. Patient 12:45:34 CDT Baltazar Childers MD [facility] CPT-02176 Level 3 Est. Patient 10:10:11 CDT Baltazar Childers MD [facility] CPT-36779 Level 3 Est. Patient 14:07:50 CDT Baltazar Childers MD [facility] CPT-54575 Level 4 Est. Patient 12:26:10 NATURAL GAS INSPECTOR Baltazar Childers MD [facility] CPT-42221 Level 4 Est. Patient 14:45:38 CDT Baltazar Childers MD [facility] CPT-12115 Level 4 New Patient 12:30:48 CDT Baltazar hinton MD [facility] Procedures Code Procedure Name Date Entry Date Standard Desc ription CPT-000 Give Appropriate Flu Vaccine 12:25:14 CDT 2 CPT-41532 First Vx - Ix admin via ID I M or jet injects without counseling by physician 13:08:59 CDT CPT-83657 Fluzone Quadrivalent Intramuscular Suspe nsion 0.5 ML 13:08:59 CDT CPT-81383 Venipuncture Draw Fee 12:04:12 CDT CPT-48927 Lipid - LAB USE ONLY 17:39:15 NATURAL GAS INSPECTOR 9 CPT-11439 HGBA1C - LAB USE ONLY 17:39:15 NATURAL GAS INSPECTOR CPT-25408 CMP - LAB USE ONLY 17:39:14 NATURAL GAS INSPECTOR CPT-63918 Venipuncture Draw Fee 17:39:14 NATURAL GAS INSPECTOR CPT-22708 First Vx - Ix admin via ID I M or jet injects without counseling by physician 16:55:17 NATURAL GAS INSPECTOR CPT-49161 Fluzone Quadrivalent Intramuscular Suspe nsion 0.5 ML 16:55:17 NATURAL GAS INSPECTOR CPT-12289 Renal Panel - LAB USE ONLY 17:39:20 CDT 201 10/31/07 CPT-27463 CBC - LAB USE ONLY 17:39:20 CDT CPT-65692 Venipuncture Draw Fee 17:39:20 CDT CPT-88513 Venipuncture Draw Fee 14:33:30 CDT CPT-51525 Renal Panel - LAB USE ONLY 14:33:30 CDT 201 10/31/07 CPT-69748 CBC - LAB USE ONLY 14:33:29 CDT CPT-75789 Venipuncture Draw Fee 14:50:21 NATURAL GAS INSPECTOR CPT-59568 Immunization Single Admin 17:35:35 CDT 2014 CPT-97189 Fluzone Quadrivalent preservative free ( >=3yrs.) 17:35:35 CDT CPT-30539 Venipuncture Draw Fee 12:10:27 NATURAL GAS INSPECTOR CPT-44566 Fluzone Quadrivalent Intramuscular Suspe nsion 0.5 ML 10:49:13 CDT CPT-87933 First Vx Component - Ix admi n via ID IM or jet inj without physician counseling 15:17:19 NATURAL GAS INSPECTOR CPT-32897 Pneumovax 15:17:19 NATURAL GAS INSPECTOR CPT-99227 Pneumovax 14:52:45 NATURAL GAS INSPECTOR CPT-28005 Venipuncture Draw Fee 14:06:30 NATURAL GAS INSPECTOR CPT-000 Give Appropriate Flu Vaccine 14:18:34 NATURAL GAS INSPECTOR 2 CPT-41225 Administration single or combination vac cine inc oral 14:46:00 NATURAL GAS INSPECTOR CPT-66016 Influenza split virus > age 3 14:46:00 NATURAL GAS INSPECTOR CPT-OV Office Visit 19:13:16 CDT CPT-94731 Zostavax 18:41:56 CDT CPT-88115 Administration single or combination vac cine inc oral 12:56:39 CDT CPT-91799 Zoster Vaccine (Zostavax) 12:56:39 CDT 2012 CPT-63304 Venipuncture Draw Fee 10:58:57 CDT CPT-82661 Sono pelvis non OB uterus ovaries cervix 17:45:04 CDT CPT-89780 Sono retroperitoneal complete kidneys an d bladder 17:14:36 CDT CPT-OV Office Visit 14:59:38 NATURAL GAS INSPECTOR CPT-J1070 Depo Testosterone 100 mg 14:50:13 CDT 03/05 CPT-55772 Abx/Therapy Injection 14:50:13 CDT CPT-30936 Administration single or combination vac cine inc oral 14:34:43 CDT CPT-22285 Influenza split virus > age 3 14:34:43 CDT CPT-J1070 Depo Testosterone 100 mg 17:37:13 CDT 01/11 CPT-22793 Abx/Therapy Injection 17:37:13 CDT CPT-24308 Venipuncture Draw Fee 16:30:13 CDT CPT-81093 Venipuncture Draw Fee 16:29:43 CDT CPT-J1070 Depo Testosterone 100 mg 14:45:38 CDT 01/11
--- OUTSIDE RECORDS SUMMARY | 2019-10-27 11:54 | XMS REPORT | Clinical Summary ---
Author Author Admin, Elba Lance Bubbles Address Unknown Phone Unavailable Allergies, Adverse Reactions, [...] ronary atherosclerosis of unspecified type of vessel, [place] or graft OTH NONSPC ABN FINDNG RAD&OTH [...] day as needed for pain TRAMADOL HCL 62056276786 No Longer Active Baltazar Childers MD Active ROBAXIN 500 MG ORAL TABLET Take 1.5 (one and one half) tabs once daily METHOCARBAMOL 51260574759 Active Baltazar Childers MD Active SYNTHROID 112 MCG ORAL TABLET Take one tablet a day LEVOTHYROXINE SODIUM 42592849359 Active Baltazar Childers MD Active TRUE METRIX AIR GLUCOSE METER DEVICE Use as directed BLOOD GLUCOSE MONITORING SUPPL 43923422446 Active Baltazar Childers MD Activ e TRUE METRIX BLOOD GLUCOSE TEST IN VITRO STRIP test blood sug ar BID Dx: E11.65 GLUCOSE BLOOD 61515670733 Active KENDALL Juarez Active NORTRIPTYLINE HCL 50 MG ORAL CAPSULE 1 twice a day for neuropathy 2 NORTRIPTYLINE HCL 20566079763 Active Baltazar Childers MD Acti ve ASPIRIN 81 MG TBEC Take one (1) tablet by mouth daily ASPIRIN 16171995154 Active Baltazar Childers MD Active GABAPENTIN 300 MG ORAL CAPSULE 1 three times a day 201 12/03/26 GABAPENTIN 69734487293 No Longer Active Baltazar Childers MD Activ e LISINOPRIL 20 MG ORAL TABLET 1 tablet by mouth daily at night 2016 LISINOPRIL 10621528222 Active Baltazar Childers MD Active ZITHROMAX Z-ISAIAS 250 MG ORAL TABLET Take two tablets to day and then 1 tablet daily for 4 days AZITHROMYCIN 75946181772 No Longer A ctive Baltazar Childers MD Active LANTUS SOLOSTAR 100 UNIT/ML SUBCUTANEOUS SOLUTION PEN- INJECTOR 30 units SC daily INSULIN GLARGINE 21620828435 Active Baltazar Childers MD Active AMLODIPINE BESYLATE 5 MG ORAL TABLET 1 tab daily for HTN AMLODIPINE BESYLATE 08766518605 Active Baltazar Childers MD Active GLIPIZIDE 10 MG ORAL TABLET take 2 tablets twice daily GLIPIZIDE 57444879553 Active Baltazar Childers MD Active SUCRALFATE 1 GM ORAL TABLET 1 four times a day to coat the stoma ch SUCRALFATE 86299696919 No Longer Active Baltazar Childers MD Active PEN NEEDLES 31G X 6 MM use 1 daily INSULIN PEN NE EDLE 17060217474 Active KENDALL Juarez Active TOUJEO SOLOSTAR 300 UNIT/ML SUBCUTANEOUS SOLUTION PEN- INJECTOR 10 units SC daily INSULIN GLARGINE 99510902466 No Longer Active Rola ARGUETA Active NAPROXEN SODIUM 220 MG ORAL TABLET 1 three times a day as needed NAPROXEN SODIUM 77135181218 No Longer Active Baltazar hCilders MD Active ATORVASTATIN CALCIUM 20 MG ORAL TABLET Take 1 tab daily ATORVASTATIN CALCIUM 55904950658 Active Baltazar Childers MD A ctive FUROSEMIDE 40 MG ORAL TABLET Take one by mouth daily FUROSEMIDE 76784077086 Active Baltazar Childers MD Active LISINOPRIL 20 MG ORAL TABLET Take one by mouth daily at bedtime LISINOPRIL 24783305093 No Longer Active Baltazar Childers MD Active ONETOUCH ULTRA BLUE IN VITRO STRIP Test twice a day 07/11/11 GLUCOSE BLOOD 85745140583 No Longer Active Baltazar Childers MD Acti ve TRUEPLUS LANCETS 33G Test twice a day LANCETS 1315679 5140 Active Beth Carr, RMA Active TRUEDRAW LANCING DEVICE Test twice a day LANCET DEVICES 48127424613 Active Baltazar Childers MD Active TRUETRACK BLOOD GLUCOSE w/Device KIT Test twice a day BLOOD GLUCOSE MONITORING SUPPL 10762712593 Active Baltazar Childers MD Activ e HYDROCODONE-ACETAMINOPHEN 7.5-325 MG ORAL TABLET Take 1 tab every 6-8 hours PRN HYDROCODONE-ACETAMINOPHEN 13690434293 Active Baltazar Nickerson MD Active GABAPENTIN 300 MG ORAL CAPSULE 1 po qd x 2 days, then 1 po BID x 2 days, then 1 po TID GABAPENTIN 59750289739 No Longer Active Baltazar Childers MD Active NAPROXEN 500 MG ORAL TABLET 1 tablet by mouth twice daily NAPROXEN 38229761276 No Longer Active Baltazar Childers MD Active PROAIR HFA 108 (90 Base) MCG/ACT INHALATION AEROSOL SO LUTION 2 puffs four times a day as needed ALBUTEROL SULFATE 85938749437 Active Paul Childers MD Active DEPO-TESTOSTERONE 200 MG/ML INTRAMUSCULAR SOLUTION as directed TESTOSTERONE CYPIONATE 46395694428 No Longer Active Baltazar Childers MD Active LIPITOR 20 MG ORAL TABLET Take one by mouth daily in evening ATORVASTATIN CALCIUM 33251447083 No Longer Active Baltazar Childers MD Active CRESTOR 10 MG ORAL TABLET 1 by mouth every day ROSUVASTATIN CALCIUM 99771970836 No Longer Active Baltazar Childers MD Active PHENTERMINE HCL 37.5 MG ORAL TABLET Take one by mouth daily PHENTERMINE HCL 43214379877 No Longer Active Baltazar Childers MD Ac tive TIZANIDINE HCL 4 MG ORAL TABLET 1 daily as needed for muscle spa sm TIZANIDINE HCL 62090783462 No Longer Active Dawna Salazar RN Active [id number] 50-325-40 MG ORAL TABLET 1 fo ur times a day as needed for heacache [id number] 79523423045 Active KENDALL Juarez Active SUMATRIPTAN SUCCINATE 100 MG ORAL TABLET 1 tablet by m outh at onset of migraine as needed SUMATRIPTAN SUCCINATE 90898748681 Active KENDALL Restrepo Active LORATADINE 10 MG ORAL TABLET Take one by mouth daily LORATADINE 63778235250 Active Baltazar Childers MD Active OMEPRAZOLE 20 MG ORAL CAPSULE DELAYED RELEASE Take one by mouth jostin ly OMEPRAZOLE 16777941219 Active Baltazar Childers MD Active HYDROXYZINE HCL 25 MG ORAL TABLET Take one by mouth daily HYDROXYZINE HCL 72100725066 Active Baltazar Childers MD Active ALPRAZOLAM 1 MG ORAL TABLET 1 [facility] 02714358578 Active Baltazar Childers MD Active METFORMIN HCL 1000 MG ORAL TABLET Take one by mouth twice daily METFORMIN HCL 60770696830 Active Baltazar Childers MD Active TIZANIDINE HCL 4 MG ORAL TABLET 1 daily as needed for muscle spa sm TIZANIDINE HCL 4 MG ORAL TABLET 260790 TIZANIDINE HCL Inactive PHENTERMINE HCL 37.5 MG ORAL TABLET Take one by mouth daily PHENTERMINE HCL 37.5 MG ORAL TABLET 922660 PHENTERMINE HCL Inac tive CRESTOR 10 MG ORAL TABLET 1 by mouth every day CRESTOR 10 MG ORAL TABLET 591534 ROSUVASTATIN CALCIUM Inactive LIPITOR 20 MG ORAL TABLET Take one by mouth daily in evening LIPITOR 20 MG ORAL TABLET 743404 ATORVASTATIN CALCIUM Inactive DEPO-TESTOSTERONE 200 MG/ML INTRAMUSCULAR SOLUTION as directed DEPO-TESTOSTERONE 200 MG/ML INTRAMUSCULAR SOLUTION 4824298 RUFINO TOSTERONE CYPIONATE Inactive NAPROXEN 500 MG ORAL TABLET 1 tablet by mouth twice daily NAPROXEN 500 MG ORAL TABLET 395993 NAPROXEN Inactive GABAPENTIN 300 MG ORAL CAPSULE 1 po qd x 2 days, then 1 po BID x 2 days, then 1 po TID GABAPENTIN 300 MG ORAL CAPSULE 902587 GABAP ENTIN Inactive ONETOUCH ULTRA BLUE IN VITRO STRIP Test twice a day 07/11/11 ONETOUCH ULTRA BLUE IN VITRO STRIP GLUCOSE BLOOD Inact amie NAPROXEN SODIUM 220 MG ORAL TABLET 1 three times a day as needed NAPROXEN SODIUM 220 MG ORAL TABLET 248226 NAPROXEN SODI UM Inactive TOUJEO SOLOSTAR 300 UNIT/ML SUBCUTANEOUS SOLUTION PEN- INJECTOR 10 units SC daily TOUJEO SOLOSTAR 300 UNIT/ML SUBCUTANEOUS SOLUTION PEN-INJECTOR INSULIN GLARGINE Inactive SUCRALFATE 1 GM ORAL TABLET 1 four times a day to coat the stoma ch SUCRALFATE 1 GM ORAL TABLET 334707 SUCRALFATE Inac tive GABAPENTIN 300 MG ORAL CAPSULE 1 three times a day 201 12/03/26 GABAPENTIN 300 MG ORAL CAPSULE 508519 GABAPENTIN Inactive TRAMADOL HCL 50 MG ORAL TABLET 1 twice a day as needed for pain TRAMADOL HCL 50 MG ORAL TABLET 871817 TRAMADOL HCL I nactive ZITHROMAX Z-ISAIAS 250 MG ORAL TABLET Take two tablets to day and then 1 tablet daily for 4 days ZITHROMAX Z-ISAIAS 250 MG ORAL TAB LET 679990 AZITHROMYCIN Inactive Immunizations Vaccine Administration Date Value Standard Floyd cription influenza immunization (Flu Vax) has been administered 05/11 Done according to patient influenza virus vaccine, unspecified for mulation pneumococcal immunization administered Pneumovax 23 [CVX33] pneumococcal polysaccharide vaccine, 23 valent Seasonal influenza vaccine, injectable, containing preservative, for > 3 years old (Afluria, FluLaval, Fluzone, Fluvirin, Fluarix, Agriflu(>= 18 yo)) Fluzone (>3 yrs.) [[id number]] Influenza, seasonal, inject able Seasonal influenza vaccine, injectable, containing preservative, for > 3 years old (Afluria, FluLaval, Fluzone, Fluvirin, Fluarix, Agriflu(>= 18 yo)) Fluzone (>3 yrs.) [[id number]] Influenza, seasonal, inject able Vital Signs Date [...] - Chem istry sodium, serum 139 mmol/L 908-455 8779/06/26 potassium, serum 4.8 mmol/L 3.5-5.2 chloride, serum [...] (L) - Chemistry cholesterol, serum 209 mg/dL 765-682 0764/12/27 triglyceride, serum, fasting 329 mg/dL 30-200 HDL cholesterol, serum 56 mg/dL 32-60 LDL cholesterol, serum 87 mg/dL 0-130 TSH 3.60 m[iU]/mL 0.36-3.74 Lab Report: Thyroid Stimulating Hormone (L) - Chemistry TSH 8.56 m[iU]/mL 0.36-3.74 Office Visit: Meds Check - Toxicology drug screen, urine, qualitative negative Encounters Code Encounter Date Provider Facility CPT-74135 [id number] Vst-Est Level IV 15:30:55 [facility] Charlie Childers MD [facility] CPT-44891 [id number] Vst-Est Level IV 13:49:06 [facility] 4 Est[facility] Patient 17:26:08 [facility] [id number] Vst-Est Level V 14:26:27 CDT Aneudy Childers MD [facility]-33476 Level 4 Est. Patient 17:05:37 CDT Baltazar Childers MD [facility]-80922 Level 4 Est. Patient 16:21:19 [facility] Baltazar Childers MD [facility]-13248 Level 4 Est. Patient 12:25:11 CDT Baltazar Childers MD [facility]-75415 Level 4 Est. Patient 14:22:31 CDT Baltazar Childers MD [facility]-93193 Level 4 Est. Patient 15:44:38 [facility] Patient 11:34:17 CDT Baltazar Childers MD [facility]-21035 Level 3 Est. Patient 16:40:40 CDT Baltazar Childers MD [facility]-02433 Level 4 Est. Patient 10:41:24 CDT Baltazar Childers MD [facility]-10282 Level 4 Est. Patient 16:01:48 CDT Baltazar Childers MD [facility]-72286 Level 4 Est. Patient 16:54:07 [facility] Baltazar Childers MD [facility]-04047 Level 4 Est. Patient 15:42:12 CDT Baltazar Childers MD [facility] CPT-34417 Level 4 Est. Patient 11:29:55 CDT Baltazar Childers MD [facility] CPT-25951 Level 4 Est. Patient 14:15:19 CDT Baltazar Childers MD [facility] CPT-60862 Level 4 Est. Patient 12:20:13 CDT Baltazar Childers MD [facility] CPT-89981 Level 4 Est. Patient 14:52:45 [facility] Baltazar Childers MD [facility] CPT-48960 Level 4 Est. Patient 14:18:34 [facility] Baltazar Childers MD [facility] CPT-49812 Level 4 Est. Patient 15:18:29 CDT Baltazar Chidlers MD [facility] CPT-42391 Level 3 Est. Patient 12:45:34 CDT Baltazar Childers MD [facility] CPT-20367 Level 3 Est. Patient 10:10:11 CDT Baltazar Childers MD [facility] CPT-72215 Level 3 Est. Patient 14:07:50 CDT Baltazar Childers MD [facility] CPT-11238 Level 4 Est. Patient 12:26:10 [facility] Baltazar Childers MD [facility] CPT-95921 Level 4 Est. Patient 14:45:38 CDT Baltazar Childers MD [facility] CPT-75847 Level 4 New Patient 12:30:48 CDT Baltazar hinton MD [facility] Procedures Code Procedure Name Date Entry Date Standard Desc ription CPT-000 Give Appropriate Flu Vaccine 12:25:14 CDT 2 CPT-17559 First Vx - Ix admin via ID I M or jet injects without counseling by physician 13:08:59 CDT CPT-29737 Fluzone Quadrivalent Intramuscular Suspe nsion 0.5 ML 13:08:59 CDT CPT-73096 Venipuncture Draw Fee 12:04:12 CDT CPT-41681 Lipid - LAB USE ONLY 17:39:15 [facility] 9 CPT-51110 HGBA1C - LAB USE ONLY 17:39:15 [facility] CPT-74670 CMP - LAB USE ONLY 17:39:14 [facility] CPT-24740 Venipuncture Draw Fee 17:39:14 [facility] CPT-74001 First Vx - Ix admin via ID I M or jet injects without counseling by physician 16:55:17 [facility] CPT-35425 Fluzone Quadrivalent Intramuscular Suspe nsion 0.5 ML 16:55:17 [facility] CPT-88682 Renal Panel - LAB USE ONLY 17:39:20 CDT 201 10/31/07 CPT-25326 CBC - LAB USE ONLY 17:39:20 CDT CPT-75016 Venipuncture Draw Fee 17:39:20 CDT CPT-97294 Venipuncture Draw Fee 14:33:30 CDT CPT-28518 Renal Panel - LAB USE ONLY 14:33:30 CDT 201 10/31/07 CPT-86930 CBC - LAB USE ONLY 14:33:29 CDT CPT-47535 Venipuncture Draw Fee 14:50:21 [facility] CPT-83973 Immunization Single Admin 17:35:35 CDT 2014 CPT-20829 Fluzone Quadrivalent preservative free ( >=3yrs.) 17:35:35 CDT CPT-53825 Venipuncture Draw Fee 12:10:27 [facility] CPT-29496 Fluzone Quadrivalent Intramuscular Suspe nsion 0.5 ML 10:49:13 CDT CPT-44341 First Vx Component - Ix admi n via ID IM or jet inj without physician counseling 15:17:19 [facility] CPT-71530 Pneumovax 23 15:17:19 [facility] CPT-68234 Pneumovax 14:52:45 [facility] CPT-85279 Venipuncture Draw Fee 14:06:30 [facility] CPT-000 Give Appropriate Flu Vaccine 14:18:34 [facility] 2 CPT-30305 Administration single or combination vac cine inc oral 14:46:00 [facility] CPT-19438 Influenza split virus > age 3 14:46:00 [facility] CPT-OV Office Visit 19:13:16 CDT CPT-07570 Zostavax 18:41:56 CDT CPT-21474 Administration single or combination vac cine inc oral 12:56:39 CDT CPT-74808 Zoster Vaccine (Zostavax) 12:56:39 CDT 2012 CPT-49376 Venipuncture Draw Fee 10:58:57 CDT CPT-24367 Sono pelvis non OB uterus ovaries cervix 17:45:04 CDT CPT-92853 Sono retroperitoneal complete kidneys an d bladder 17:14:36 CDT CPT-OV Office Visit 14:59:38 [facility] CPT-J1070 Depo Testosterone 100 mg 14:50:13 CDT 03/05 CPT-30230 Abx/Therapy Injection 14:50:13 CDT CPT-51870 Administration single or combination vac cine inc oral 14:34:43 CDT CPT-27107 Influenza split virus > age 3 14:34:43 CDT CPT-J1070 Depo Testosterone 100 mg 17:37:13 CDT 01/11 CPT-30655 Abx/Therapy Injection 17:37:13 CDT CPT-00979 Venipuncture Draw Fee 16:30:13 CDT CPT-49234 Venipuncture Draw Fee 16:29:43 CDT CPT-J1070 Depo Testosterone 100 mg 14:45:38 CDT 01/11
--- OUTSIDE RECORDS SUMMARY | 2019-10-27 11:55 | XMS REPORT | Clinical Summary ---
Author Author Admin, Elba Lance [employer] Address Unknown Phone Unavailable Allergies, Adverse Reactions, [...] MD Morbid obesity Obesity, class III 278.01 Active Ann Martinez PA-C Morbid obesity ADD 314.00 Active Baltazar Childers [...] of diabetes mellitus ANEMIA 285.9 Active Baltazar Childesr MD Anemia, unspecified RENAL INSUFFICIENCY 593.9 Active Baltazar bynum MD Unspecified disorder of kidney and ureter CAD 414.00 Active Gladys Arce LRT Co ronary atherosclerosis of unspecified type of vessel, mechoopda or graft OTH NONSPC ABN FINDNG RAD&OTH [...] stage III 585.3 Active 201 10/25/03 Elba Ryan RMA Chronic kidney disease, Stage III (moder [...] MD Acute pharyngitis BMI 37-37.9 adult V85.37 Active Baltazar Childers MD Body Mass Index 37.0-37.9, adult Screening mammogram V76.12 Active Baltazar bynum MD Other screening mammogram COLON POLYPS ICD-211.3 Inactive Lolis King JOSE Bynum Pharyngitis ICD-462 Inactive Baltazar Childers MD Medication List Medication Instructions Start Date Stop Date Generic Name NDC Status Provider Patient Instruction ROBAXIN 500 MG ORAL TABLET Take 1.5 (one and one half) tabs once daily METHOCARBAMOL 80079172646 Active KENDALL Juarez Active SYNTHROID 112 MCG ORAL TABLET Take one tablet a day LEVOTHYROXINE SODIUM 58188781046 Active KENDALL Juarez Active TRUE METRIX AIR GLUCOSE METER DEVICE Use as directed BLOOD GLUCOSE MONITORING SUPPL 10011710987 Active Baltazar Childers MD Activ e TRUE METRIX BLOOD GLUCOSE TEST IN VITRO STRIP test blood sug ar BID Dx: E11.65 GLUCOSE BLOOD 51598155359 Active KENDALL Juarez Active NORTRIPTYLINE HCL 50 MG ORAL CAPSULE 1 twice a day for neuropathy 2 NORTRIPTYLINE HCL 33930468762 Active Ann Martinez PA-C Act amie ASPIRIN 81 MG TBEC Take one (1) tablet by mouth daily ASPIRIN 78105804325 Active Baltazar Childers MD Active GABAPENTIN 300 MG ORAL CAPSULE 1 three times a day 201 12/03/26 GABAPENTIN 22617654035 No Longer Active Baltazar Childers MD Activ e LISINOPRIL 20 MG ORAL TABLET 1 tablet by mouth daily at night 2016 LISINOPRIL 26507300487 Active Ann Martinez PA-C Active ZITHROMAX Z-ISAIAS 250 MG ORAL TABLET Take two tablets to day and then 1 tablet daily for 4 days AZITHROMYCIN 67400597720 No Longer A ctive Baltazar Childers MD Active LANTUS SOLOSTAR 100 UNIT/ML SUBCUTANEOUS SOLUTION PEN- INJECTOR 30 units SC daily INSULIN GLARGINE 56898162995 Active Baltazar Childers MD Active AMLODIPINE BESYLATE 5 MG ORAL TABLET 1 tab daily for HTN AMLODIPINE BESYLATE 99534972991 Active Ann Martinez PA-C Active GLIPIZIDE 10 MG ORAL TABLET take 2 tablets twice daily GLIPIZIDE 59194476985 Active KENDALL Juarez Active SUCRALFATE 1 GM ORAL TABLET 1 four times a day to coat the stoma ch SUCRALFATE 75733090921 No Longer Active Baltazar Childers MD Active PEN NEEDLES 31G X 6 MM use 1 daily INSULIN PEN NE EDLE 54832970989 Active KENDALL Juarez Active TOUJEO SOLOSTAR 300 UNIT/ML SUBCUTANEOUS SOLUTION PEN- INJECTOR 10 units SC daily INSULIN GLARGINE 48118883256 No Longer Active S abigail Godinez RMBetsey Active NAPROXEN SODIUM 220 MG ORAL TABLET 1 three times a day as needed NAPROXEN SODIUM 24788559132 No Longer Active Baltazar Childers MD Active ATORVASTATIN CALCIUM 20 MG ORAL TABLET Take 1 tab daily ATORVASTATIN CALCIUM 62868592136 Active Baltazar Childers MD A ctive FUROSEMIDE 40 MG ORAL TABLET Take one by mouth daily FUROSEMIDE 87657438477 Active Baltazar Cihlders MD Active LISINOPRIL 20 MG ORAL TABLET Take one by mouth daily at bedtime LISINOPRIL 06078378192 No Longer Active Baltazar Childers MD Active ONETOUCH ULTRA BLUE IN VITRO STRIP Test twice a day 07/11/11 GLUCOSE BLOOD 84021917862 No Longer Active Baltazar Childers MD Acti ve TRUEPLUS LANCETS 33G Test twice a day LANCETS 0925847 3608 Active KENDALL Juarez Active TRUEDRAW LANCING DEVICE Test twice a day LANCET DEVICES 69885393808 Active Baltazar Childers MD Active TRUETRACK BLOOD GLUCOSE w/Device KIT Test twice a day BLOOD GLUCOSE MONITORING SUPPL 59110492806 Active Baltazar Childers MD Activ e HYDROCODONE-ACETAMINOPHEN 7.5-325 MG ORAL TABLET Take 1 tab every 6-8 hours PRN HYDROCODONE-ACETAMINOPHEN 40831559816 Active Ann maciel PA-C Active GABAPENTIN 300 MG ORAL CAPSULE 1 po qd x 2 days, then 1 po BID x 2 days, then 1 po TID GABAPENTIN 90265621292 No Longer Active Baltazar Childers MD Active TRAMADOL HCL 50 MG ORAL TABLET 1 twice a day as needed for pain 201 07/27/28 TRAMADOL HCL 26070488634 Active Baltazar Childers MD Active NAPROXEN 500 MG ORAL TABLET 1 tablet by mouth twice daily NAPROXEN 68006511712 No Longer Active Baltazar Childers MD Active PROAIR HFA 108 (90 Base) MCG/ACT INHALATION AEROSOL SO LUTION 2 puffs four times a day as needed ALBUTEROL SULFATE 44915827172 Active KENDALL Bowie Active DEPO-TESTOSTERONE 200 MG/ML INTRAMUSCULAR SOLUTION as directed TESTOSTERONE CYPIONATE 33584630239 No Longer Active Baltazar Childers MD Active LIPITOR 20 MG ORAL TABLET Take one by mouth daily in evening ATORVASTATIN CALCIUM 56491055935 No Longer Active Baltazar Childers MD Active CRESTOR 10 MG ORAL TABLET 1 by mouth every day ROSUVASTATIN CALCIUM 42777877595 No Longer Active Baltazar Childers MD Active PHENTERMINE HCL 37.5 MG ORAL TABLET Take one by mouth daily PHENTERMINE HCL 82039021367 No Longer Active Baltazar Childers MD Ac tive TIZANIDINE HCL 4 MG ORAL TABLET 1 daily as needed for muscle spa sm TIZANIDINE HCL 45861111800 No Longer Active Dawna Salazar RN Active [id number] 50-325-40 MG ORAL TABLET 1 fo ur times a day as needed for heacache [id number] 58740325855 Active KENDALL Juarez Active SUMATRIPTAN SUCCINATE 100 MG ORAL TABLET 1 tablet by m outh at onset of migraine as needed SUMATRIPTAN SUCCINATE 64632621213 Active KENDALL Restrepo Active LORATADINE 10 MG ORAL TABLET Take one by mouth daily LORATADINE 71072896337 Active KENDALL Juarez Active OMEPRAZOLE 20 MG ORAL CAPSULE DELAYED RELEASE Take one by mouth jostin ly OMEPRAZOLE 76286549955 Active Ann Martinez PA-C Active HYDROXYZINE HCL 25 MG ORAL TABLET Take one by mouth daily HYDROXYZINE HCL 69370896116 Active Baltazar Childers MD Active ALPRAZOLAM 1 MG ORAL TABLET 1 tablet by mouth daily at bedti me for restless leg ALPRAZOLAM 03645987642 Active Baltazar Childers MD Active METFORMIN HCL 1000 MG ORAL TABLET Take one by mouth twice daily METFORMIN HCL 98883308316 Active Baltazar Childers MD Active TIZANIDINE HCL 4 MG ORAL TABLET 1 daily as needed for muscle spa sm TIZANIDINE HCL 4 MG ORAL TABLET 025919 TIZANIDINE HCL Inactive PHENTERMINE HCL 37.5 MG ORAL TABLET Take one by mouth daily PHENTERMINE HCL 37.5 MG ORAL TABLET 395501 PHENTERMINE HCL Inac tive CRESTOR 10 MG ORAL TABLET 1 by mouth every day CRESTOR 10 MG ORAL TABLET 716041 ROSUVASTATIN CALCIUM Inactive LIPITOR 20 MG ORAL TABLET Take one by mouth daily in evening LIPITOR 20 MG ORAL TABLET 282987 ATORVASTATIN CALCIUM Inactive DEPO-TESTOSTERONE 200 MG/ML INTRAMUSCULAR SOLUTION as directed DEPO-TESTOSTERONE 200 MG/ML INTRAMUSCULAR SOLUTION 5216918 RUFINO TOSTERONE CYPIONATE Inactive NAPROXEN 500 MG ORAL TABLET 1 tablet by mouth twice daily NAPROXEN 500 MG ORAL TABLET 993375 NAPROXEN Inactive GABAPENTIN 300 MG ORAL CAPSULE 1 po qd x 2 days, then 1 po BID x 2 days, then 1 po TID GABAPENTIN 300 MG ORAL CAPSULE 662552 GABAP ENTIN Inactive ONETOUCH ULTRA BLUE IN VITRO STRIP Test twice a day 07/11/11 ONETOUCH ULTRA BLUE IN VITRO STRIP GLUCOSE BLOOD Inact amie NAPROXEN SODIUM 220 MG ORAL TABLET 1 three times a day as needed NAPROXEN SODIUM 220 MG ORAL TABLET 555938 NAPROXEN SODI UM Inactive TOUJEO SOLOSTAR 300 UNIT/ML SUBCUTANEOUS SOLUTION PEN- INJECTOR 10 units SC daily TOUJEO SOLOSTAR 300 UNIT/ML SUBCUTANEOUS SOLUTION PEN-INJECTOR INSULIN GLARGINE Inactive SUCRALFATE 1 GM ORAL TABLET 1 four times a day to coat the stoma ch SUCRALFATE 1 GM ORAL TABLET 887842 SUCRALFATE Inac tive GABAPENTIN 300 MG ORAL CAPSULE 1 three times a day 201 12/03/26 GABAPENTIN 300 MG ORAL CAPSULE 871944 GABAPENTIN Inactive ZITHROMAX Z-ISAIAS 250 MG ORAL TABLET Take two tablets to day and then 1 tablet daily for 4 days ZITHROMAX Z-ISAIAS 250 MG ORAL TAB LET 895204 AZITHROMYCIN Inactive Immunizations Vaccine Administration Date Value Standard Floyd cription pneumococcal immunization administered Pneumovax 23 [CVX33] pneumococcal polysaccharide vaccine, 23 valent Seasonal influenza vaccine, injectable, containing preservative, for > 3 years old (Afluria, FluLaval, Fluzone, Fluvirin, Fluarix, Agriflu(>= 18 yo)) Fluzone (>3 yrs.) [[id number]] Influenza, seasonal, inject able Seasonal influenza vaccine, injectable, containing preservative, for > 3 years old (Afluria, FluLaval, Fluzone, Fluvirin, Fluarix, Agriflu(>= 18 yo)) Fluzone (>3 yrs.) [[id number]] Influenza, seasonal, inject able Vital Signs Date Name Value Unit Range Description blood pressure, diastolic, repeated by physician 72 [...] - Chem istry sodium, serum 139 mmol/L 470-160 1213/06/26 potassium, serum 4.8 mmol/L 3.5-5.2 chloride, serum [...] (L) - Chemistry cholesterol, serum 209 mg/dL 624-039 7348/12/27 triglyceride, serum, fasting 329 mg/dL 30-200 HDL cholesterol, serum 56 mg/dL 32-60 LDL cholesterol, serum 87 mg/dL 0-130 TSH 3.60 m[iU]/mL 0.36-3.74 Lab Report: Thyroid Stimulating Hormone (L) - Chemistry TSH 8.56 m[iU]/mL 0.36-3.74 Office Visit: Meds Check - Toxicology drug screen, urine, qualitative negative Encounters Code Encounter Date Provider Facility CPT-12632 10029-Iwn Vst-Est Level IV 13:49:06 C DT Ann Martinez PA-C [facility] CPT-28107 Level 4 Est. Patient 17:26:08 CDT Ann trujillo PA-C [facility] CPT-20826 [id number] Vst-Est Level V 14:26:27 CDT Aneudy Childers MD [facility] CPT-00703 Level 4 Est. Patient 17:05:37 CDT Baltazar Childers MD [facility] CPT-13636 Level 4 Est. Patient 16:21:19 SEASONAL DRIVER Baltazar Childers MD [facility] CPT-56448 Level 4 Est. Patient 12:25:11 CDT Baltazar Childers MD [facility] CPT-15046 Level 4 Est. Patient 14:22:31 CDT Baltazar Childers MD [facility] CPT-36010 Level 4 Est. Patient 15:44:38 CDT Shonna Parker APRN [facility] CPT-49259 Level 4 Est. Patient 11:34:17 CDT Baltazar Childers MD [facility] CPT-08913 Level 3 Est. Patient 16:40:40 CDT Baltazar Childers MD [facility]-61199 Level 4 Est. Patient 10:41:24 CDT Baltazar Childers MD [facility]-78737 Level 4 Est. Patient 16:01:48 CDT Baltazar Childers MD [facility]-82405 Level 4 Est. Patient 16:54:07 SEASONAL DRIVER Baltazar Childers MD [facility]-91949 Level 4 Est. Patient 15:42:12 CDT Baltazar Childers MD [facility] CPT-21617 Level 4 Est. Patient 11:29:55 CDT Baltazar Childers MD [facility] CPT-04171 Level 4 Est. Patient 14:15:19 CDT Baltazar Childers MD [facility] CPT-64461 Level 4 Est. Patient 12:20:13 CDT Baltazar Childers MD [facility] CPT-43452 Level 4 Est. Patient 14:52:45 SEASONAL DRIVER Baltazar Childers MD [facility] CPT-54627 Level 4 Est. Patient 14:18:34 SEASONAL DRIVER Baltazar Childers MD [facility] CPT-80995 Level 4 Est. Patient 15:18:29 CDT Baltazar Childers MD [facility] CPT-17130 Level 3 Est. Patient 12:45:34 CDT Baltazar Childers MD [facility] CPT-76093 Level 3 Est. Patient 10:10:11 CDT Baltazar Childers MD [facility] CPT-34298 Level 3 Est. Patient 14:07:50 CDT Baltazar Childers MD [facility] CPT-76133 Level 4 Est. Patient 12:26:10 SEASONAL DRIVER Baltazar Childers MD [facility] CPT-51796 Level 4 Est. Patient 14:45:38 CDT Baltazar Childers MD [facility] CPT-68033 Level 4 New Patient 12:30:48 CDT Baltazar hinton MD [facility] Procedures Code Procedure Name Date Entry Date Standard Desc ription CPT-000 Give Appropriate Flu Vaccine 12:25:14 CDT 2 CPT-12749 First Vx - Ix admin via ID I M or jet injects without counseling by physician 13:08:59 CDT CPT-58450 Fluzone Quadrivalent Intramuscular Suspe nsion 0.5 ML 13:08:59 CDT CPT-09863 Venipuncture Draw Fee 12:04:12 CDT CPT-02740 Lipid - LAB USE ONLY 17:39:15 SEASONAL DRIVER 9 CPT-39603 HGBA1C - LAB USE ONLY 17:39:15 SEASONAL DRIVER CPT-29626 CMP - LAB USE ONLY 17:39:14 SEASONAL DRIVER CPT-52833 Venipuncture Draw Fee 17:39:14 SEASONAL DRIVER CPT-80723 First Vx - Ix admin via ID I M or jet injects without counseling by physician 16:55:17 SEASONAL DRIVER CPT-66273 Fluzone Quadrivalent Intramuscular Suspe nsion 0.5 ML 16:55:17 SEASONAL DRIVER CPT-06646 Renal Panel - LAB USE ONLY 17:39:20 CDT 201 10/31/07 CPT-15981 CBC - LAB USE ONLY 17:39:20 CDT CPT-93327 Venipuncture Draw Fee 17:39:20 CDT CPT-62108 Venipuncture Draw Fee 14:33:30 CDT CPT-53465 Renal Panel - LAB USE ONLY 14:33:30 CDT 201 10/31/07 CPT-89712 CBC - LAB USE ONLY 14:33:29 CDT CPT-23523 Venipuncture Draw Fee 14:50:21 SEASONAL DRIVER CPT-39899 Immunization Single Admin 17:35:35 CDT 2014 CPT-63962 Fluzone Quadrivalent preservative free ( >=3yrs.) 17:35:35 CDT CPT-58712 Venipuncture Draw Fee 12:10:27 SEASONAL DRIVER CPT-70663 Fluzone Quadrivalent Intramuscular Suspe nsion 0.5 ML 10:49:13 CDT CPT-08625 First Vx Component - Ix admi n via ID IM or jet inj without physician counseling 15:17:19 SEASONAL DRIVER CPT-64616 Pneumovax 23 15:17:19 SEASONAL DRIVER CPT-77840 Pneumovax 14:52:45 SEASONAL DRIVER CPT-19432 Venipuncture Draw Fee 14:06:30 SEASONAL DRIVER CPT-000 Give Appropriate Flu Vaccine 14:18:34 SEASONAL DRIVER 2 CPT-94567 Administration single or combination vac cine inc oral 14:46:00 SEASONAL DRIVER CPT-63546 Influenza split virus > age 3 14:46:00 SEASONAL DRIVER CPT-OV Office Visit 19:13:16 CDT CPT-58095 Zostavax 18:41:56 CDT CPT-10921 Administration single or combination vac cine inc oral 12:56:39 CDT CPT-00423 Zoster Vaccine (Zostavax) 12:56:39 CDT 2012 CPT-16178 Venipuncture Draw Fee 10:58:57 CDT CPT-22712 Sono pelvis non OB uterus ovaries cervix 17:45:04 CDT CPT-96037 Sono retroperitoneal complete kidneys an d bladder 17:14:36 CDT CPT-OV Office Visit 14:59:38 SEASONAL DRIVER CPT-J1070 Depo Testosterone 100 mg 14:50:13 CDT 03/05 CPT-81749 Abx/Therapy Injection 14:50:13 CDT CPT-62947 Administration single or combination vac cine inc oral 14:34:43 CDT CPT-01804 Influenza split virus > age 3 14:34:43 CDT CPT-J1070 Depo Testosterone 100 mg 17:37:13 CDT 01/11 CPT-30314 Abx/Therapy Injection 17:37:13 CDT CPT-37409 Venipuncture Draw Fee 16:30:13 CDT CPT-92723 Venipuncture Draw Fee 16:29:43 CDT CPT-J1070 Depo Testosterone 100 mg 14:45:38 CDT 01/11
--- OUTSIDE RECORDS SUMMARY | 2019-10-27 11:55 | XMS REPORT | Clinical Summary ---
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 Benign neoplasm of colon PERIPHERAL NEUROPATHY 356.9 [...] ronary atherosclerosis of unspecified type of vessel, [place] or graft OTH NONSPC ABN FINDNG RAD&OTH [...] UTERUS, UNSPECIFIED 218.9 Active 201 08/01/12 Gayathri Hduson MD Leiomyoma of uterus, unspecified WELL WOMAN EXAMINATION V72.31 Active Gayathri aviles MD Routine gynecological examination Health screening V70.0 Active Baltazar Wayne Routine general medical examination at a health care facility Chronic pain syndrome 338.4 Active Baltazar Nickerson MD Chronic pain syndrome Chronic kidney disease stage III 585.3 Active 201 10/25/03 Elbamargarette Ryan RMA Chronic kidney disease, Stage III [...] Childers MD Body Mass Index 37.0-37.9, adult COLON POLYPS ICD-211.3 Inactive Lolis Thomas APR N Pharyngitis ICD-462 Inactive Baltazar Childers MD Medication List Medication Instructions Start Date Stop Date Generic Name NDC Status Provider Patient Instruction ROBAXIN 500 MG ORAL TABLET Take 1.5 (one and one half) tabs once daily METHOCARBAMOL 15898089932 Active KENDALL Juarez Active SYNTHROID 112 MCG ORAL TABLET Take one tablet a day LEVOTHYROXINE SODIUM 46155728513 Active KENDALL Juarez Active TRUE METRIX AIR GLUCOSE METER DEVICE Use as directed BLOOD GLUCOSE MONITORING SUPPL 86739767473 Active Baltazar Childers MD Activ e TRUE METRIX BLOOD GLUCOSE TEST IN VITRO STRIP test blood sug ar BID Dx: E11.65 GLUCOSE BLOOD 09151955893 Active KENDALL Juarez Active NORTRIPTYLINE HCL 50 MG ORAL CAPSULE 1 twice a day for neuropathy 2 NORTRIPTYLINE HCL 31293555931 Active Ann Martinez PA-C Act amie ASPIRIN 81 MG TBEC Take one (1) tablet by mouth daily ASPIRIN 17184222651 Active Baltazar Childers MD Active GABAPENTIN 300 MG ORAL CAPSULE 1 three times a day 201 12/03/26 GABAPENTIN 84528940772 No Longer Active Baltazar Childers MD Activ e LISINOPRIL 20 MG ORAL TABLET 1 tablet by mouth daily at night 2016 LISINOPRIL 69835843353 Active Ann Martinez PA-C Active ZITHROMAX Z-ISAIAS 250 MG ORAL TABLET Take two tablets to day and then 1 tablet daily for 4 days AZITHROMYCIN 32797758985 No Longer A ctive Baltazar Childers MD Active LANTUS SOLOSTAR 100 UNIT/ML SUBCUTANEOUS SOLUTION PEN- INJECTOR 30 units SC daily INSULIN GLARGINE 96932701568 Active Baltazar Childers MD Active AMLODIPINE BESYLATE 5 MG ORAL TABLET 1 tab daily for HTN AMLODIPINE BESYLATE 93303033391 Active Ann Martinez PA-C Active GLIPIZIDE 10 MG ORAL TABLET take 2 tablets twice daily GLIPIZIDE 74946076356 Active KENDALL Jaurez Active SUCRALFATE 1 GM ORAL TABLET 1 four times a day to coat the stoma ch SUCRALFATE 45104588158 No Longer Active Baltazar Childers MD Active PEN NEEDLES 31G X 6 MM use 1 daily INSULIN PEN NE EDLE 70170863884 Active KENDALL Juarez Active TOUJEO SOLOSTAR 300 UNIT/ML SUBCUTANEOUS SOLUTION PEN- INJECTOR 10 units SC daily INSULIN GLARGINE 30173598475 No Longer Active Rola ARGUETA Active NAPROXEN SODIUM 220 MG ORAL TABLET 1 three times a day as needed NAPROXEN SODIUM 92665023728 No Longer Active Baltazar Childers MD Active ATORVASTATIN CALCIUM 20 MG ORAL TABLET Take 1 tab daily ATORVASTATIN CALCIUM 81235483248 Active Baltazar Childers MD A ctive FUROSEMIDE 40 MG ORAL TABLET Take one by mouth daily FUROSEMIDE 14956607916 Active Baltazar Childers MD Active LISINOPRIL 20 MG ORAL TABLET Take one by mouth daily at bedtime LISINOPRIL 32494263102 No Longer Active Baltazar Childers MD Active ONETOUCH ULTRA BLUE IN VITRO STRIP Test twice a day 07/11/11 GLUCOSE BLOOD 69967054804 No Longer Active Baltazar Childers MD Acti ve TRUEPLUS LANCETS 33G Test twice a day LANCETS 9118038 1173 Active KENDALL Juarez Active TRUEDRAW LANCING DEVICE Test twice a day LANCET DEVICES 52619674579 Active Baltazar Childers MD Active TRUETRACK BLOOD GLUCOSE w/Device KIT Test twice a day BLOOD GLUCOSE MONITORING SUPPL 01682212815 Active Baltazar Childers MD Activ e HYDROCODONE-ACETAMINOPHEN 7.5-325 MG ORAL TABLET Take 1 tab every 6-8 hours PRN HYDROCODONE-ACETAMINOPHEN 61297190120 Active Ann maciel PA-C Active GABAPENTIN 300 MG ORAL CAPSULE 1 po qd x 2 days, then 1 po BID x 2 days, then 1 po TID GABAPENTIN 25449746251 No Longer Active Baltazar Childers MD Active TRAMADOL HCL 50 MG ORAL TABLET 1 twice a day as needed for pain 201 07/27/28 TRAMADOL HCL 33917649437 Active Baltazar Childers MD Active NAPROXEN 500 MG ORAL TABLET 1 tablet by mouth twice daily NAPROXEN 08688141507 No Longer Active Baltazar Childers MD Active PROAIR HFA 108 (90 Base) MCG/ACT INHALATION AEROSOL SO LUTION 2 puffs four times a day as needed ALBUTEROL SULFATE 87763522105 Active KENDALL Bowie Active DEPO-TESTOSTERONE 200 MG/ML INTRAMUSCULAR SOLUTION as directed TESTOSTERONE CYPIONATE 17825960057 No Longer Active Baltazar Childers MD Active LIPITOR 20 MG ORAL TABLET Take one by mouth daily in evening ATORVASTATIN CALCIUM 43477370261 No Longer Active Baltazar Childers MD Active CRESTOR 10 MG ORAL TABLET 1 by mouth every day ROSUVASTATIN CALCIUM 49863411617 No Longer Active Baltazar Childers MD Active PHENTERMINE HCL 37.5 MG ORAL TABLET Take one by mouth daily PHENTERMINE HCL 10020783969 No Longer Active Baltazar Childers MD Ac tive TIZANIDINE HCL 4 MG ORAL TABLET 1 daily as needed for muscle spa sm TIZANIDINE HCL 47549801519 No Longer Active Dawna Salazar RN Active [id number] 50-325-40 MG ORAL TABLET 1 fo ur times a day as needed for heacache [id number] 06397813816 Active KENDALL Juarez Active SUMATRIPTAN SUCCINATE 100 MG ORAL TABLET 1 tablet by m outh at onset of migraine as needed SUMATRIPTAN SUCCINATE 78927497512 Active KENDALL Restrepo Active LORATADINE 10 MG ORAL TABLET Take one by mouth daily LORATADINE 73378472049 Active KENDALL Juarez Active OMEPRAZOLE 20 MG ORAL CAPSULE DELAYED RELEASE Take one by mouth jostin ly OMEPRAZOLE 25962142721 Active Ann Martinez PA-C Active HYDROXYZINE HCL 25 MG ORAL TABLET Take one by mouth daily HYDROXYZINE HCL 45244623454 Active Baltazar Childers MD Active ALPRAZOLAM 1 MG ORAL TABLET 1 [facility] 13278955083 Active Baltazar Childers MD Active METFORMIN HCL 1000 MG ORAL TABLET Take one by mouth twice daily METFORMIN HCL 93188320150 Active Baltazar Childers MD Active TIZANIDINE HCL 4 MG ORAL TABLET 1 daily as needed for muscle spa sm TIZANIDINE HCL 4 MG ORAL TABLET 695365 TIZANIDINE HCL Inactive PHENTERMINE HCL 37.5 MG ORAL TABLET Take one by mouth daily PHENTERMINE HCL 37.5 MG ORAL TABLET 144143 PHENTERMINE HCL Inac tive CRESTOR 10 MG ORAL TABLET 1 by mouth every day CRESTOR 10 MG ORAL TABLET 329640 ROSUVASTATIN CALCIUM Inactive LIPITOR 20 MG ORAL TABLET Take one by mouth daily in evening LIPITOR 20 MG ORAL TABLET 387239 ATORVASTATIN CALCIUM Inactive DEPO-TESTOSTERONE 200 MG/ML INTRAMUSCULAR SOLUTION as directed DEPO-TESTOSTERONE 200 MG/ML INTRAMUSCULAR SOLUTION 7178939 RUFINO TOSTERONE CYPIONATE Inactive NAPROXEN 500 MG ORAL TABLET 1 tablet by mouth twice daily NAPROXEN 500 MG ORAL TABLET 968767 NAPROXEN Inactive GABAPENTIN 300 MG ORAL CAPSULE 1 po qd x 2 days, then 1 po BID x 2 days, then 1 po TID GABAPENTIN 300 MG ORAL CAPSULE 822157 GABAP ENTIN Inactive ONETOUCH ULTRA BLUE IN VITRO STRIP Test twice a day 07/11/11 ONETOUCH ULTRA BLUE IN VITRO STRIP GLUCOSE BLOOD Inact amie NAPROXEN SODIUM 220 MG ORAL TABLET 1 three times a day as needed NAPROXEN SODIUM 220 MG ORAL TABLET 160416 NAPROXEN SODI UM Inactive TOUJEO SOLOSTAR 300 UNIT/ML SUBCUTANEOUS SOLUTION PEN- INJECTOR 10 units SC daily TOUJEO SOLOSTAR 300 UNIT/ML SUBCUTANEOUS SOLUTION PEN-INJECTOR INSULIN GLARGINE Inactive SUCRALFATE 1 GM ORAL TABLET 1 four times a day to coat the stoma SUCRALFATE 1 GM ORAL TABLET 605170 SUCRALFATE Inac tive GABAPENTIN 300 MG ORAL CAPSULE 1 three times a day 201 12/03/26 GABAPENTIN 300 MG ORAL CAPSULE 587642 GABAPENTIN Inactive ZITHROMAX Z-ISAIAS 250 MG ORAL TABLET Take two tablets to day and then 1 tablet daily for 4 days ZITHROMAX Z-ISAIAS 250 MG ORAL TAB LET 638757 AZITHROMYCIN Inactive Immunizations Vaccine Administration Date Value Standard Floyd cription pneumococcal immunization administered Pneumovax 23 [CVX33] pneumococcal polysaccharide vaccine, 23 valent Seasonal influenza vaccine, injectable, containing preservative, for > 3 years old (Afluria, FluLaval, Fluzone, Fluvirin, Fluarix, Agriflu(>= 18 yo)) Fluzone (>3 yrs.) [[id number]] Influenza, seasonal, inject able Seasonal influenza vaccine, injectable, containing preservative, for > 3 years old (Afluria, FluLaval, Fluzone, Fluvirin, Fluarix, Agriflu(>= 18 yo)) Fluzone (>3 yrs.) [[id number]] Influenza, seasonal, inject able Vital Signs Date [...] - Chem istry sodium, serum 139 mmol/L 916-372 6404/06/26 potassium, serum 4.8 mmol/L 3.5-5.2 chloride, serum [...] (L) - Chemistry cholesterol, serum 209 mg/dL 929-441 1349/12/27 triglyceride, serum, fasting 329 mg/dL 30-200 HDL cholesterol, serum 56 mg/dL 32-60 LDL cholesterol, serum 87 mg/dL 0-130 TSH 3.60 m[iU]/mL 0.36-3.74 Lab Report: Thyroid Stimulating Hormone (L) - Chemistry TSH 8.56 m[iU]/mL 0.36-3.74 Office Visit: Meds Check - Toxicology drug screen, urine, qualitative negative Encounters Code Encounter Date Provider Facility CPT-40610 [id number] Vst-Est Level IV 13:49:[facility] Level 4 Est. Patient 17:26:08 CDT Ann trujillo PA-C [facility] CPT-67855 [id number] Vst-Est Level V 14:26:27 CDT Aneudy Childers MD [facility] CPT-13319 Level 4 Est. Patient 17:05:37 CDT Baltazar Childers MD [facility] CPT-44521 Level 4 Est. Patient 16:21:19 PROCUREMENT CONSULTANT Baltazar Childers MD [facility] CPT-43894 Level 4 Est. Patient 12:25:11 CDT Baltazar Childers MD [facility] CPT-91509 Level 4 Est. Patient 14:22:31 CDT Baltazar Childers MD [facility] CPT-10728 Level 4 Est. Patient 15:44:38 CDT Shonna Parker [employer]ED [employer] C[employer] [facility] CPT-28473 Level 4 Est. Patient 11:34:17 CDT Baltazar Childers MD [facility] CPT-00563 Level 3 Est. Patient 16:40:40 CDT Baltazar Childers MD [facility] CPT-93648 Level 4 Est. Patient 10:41:24 CDT Baltazar Childers MD [facility]-64806 Level 4 Est. Patient 16:01:48 CDT Baltazar Childers MD [facility]-66145 Level 4 Est. Patient 16:54:07 PROCUREMENT CONSULTANT Baltazar Childers MD [facility]-68663 Level 4 Est. Patient 15:42:12 CDT Baltazar Childers MD [facility] CPT-10213 Level 4 Est. Patient 11:29:55 CDT Baltazar Childers MD [facility]-39259 Level 4 Est. Patient 14:15:19 CDT Baltazar Childers MD [facility]-46536 Level 4 Est. Patient 12:20:13 CDT Baltazar Childers MD [facility]-88400 Level 4 Est. Patient 14:52:45 PROCUREMENT CONSULTANT Baltazar Childers MD [facility]-79602 Level 4 Est. Patient 14:18:34 PROCUREMENT CONSULTANT Baltazar Childers MD [facility]-56181 Level 4 Est. Patient 15:18:29 CDT Baltazar Childers MD [facility]-52668 Level 3 Est. Patient 12:45:34 CDT Baltazar Childers MD [facility]-62573 Level 3 Est. Patient 10:10:11 CDT Baltazar Childers MD [facility]-83974 Level 3 Est. Patient 14:07:50 CDT Baltazar Childers MD [facility]-10769 Level 4 Est. Patient 12:26:10 PROCUREMENT CONSULTANT Baltazar Childers MD [facility]-80015 Level 4 Est. Patient 14:45:38 CDT Baltazar Childers MD [facility] CPT-31017 Level 4 New Patient 12:30:48 CDT Baltazar hinton MD [facility] Procedures Code Procedure Name Date Entry Date Standard Desc ription CPT-000 Give Appropriate Flu Vaccine 12:25:14 CDT 2 CPT-08944 First Vx - Ix admin via ID I M or jet injects without counseling by physician 13:08:59 CDT CPT-85441 Fluzone Quadrivalent Intramuscular Suspe nsion 0.5 ML 13:08:59 CDT CPT-42887 Venipuncture Draw Fee 12:04:12 CDT CPT-44431 Lipid - LAB USE ONLY 17:39:15 PROCUREMENT CONSULTANT 9 CPT-64534 HGBA1C - LAB USE ONLY 17:39:15 PROCUREMENT CONSULTANT CPT-57701 CMP - LAB USE ONLY 17:39:14 PROCUREMENT CONSULTANT CPT-07805 Venipuncture Draw Fee 17:39:14 PROCUREMENT CONSULTANT CPT-72060 First Vx - Ix admin via ID I M or jet injects without counseling by physician 16:55:17 PROCUREMENT CONSULTANT CPT-64345 Fluzone Quadrivalent Intramuscular Suspe nsion 0.5 ML 16:55:17 PROCUREMENT CONSULTANT CPT-78488 Renal Panel - LAB USE ONLY 17:39:20 CDT 201 10/31/07 CPT-61462 CBC - LAB USE ONLY 17:39:20 CDT CPT-70257 Venipuncture Draw Fee 17:39:20 CDT CPT-31886 Venipuncture Draw Fee 14:33:30 CDT CPT-02433 Renal Panel - LAB USE ONLY 14:33:30 CDT 201 10/31/07 CPT-52491 CBC - LAB USE ONLY 14:33:29 CDT CPT-64976 Venipuncture Draw Fee 14:50:21 PROCUREMENT CONSULTANT CPT-94278 Immunization Single Admin 17:35:35 CDT 2014 CPT-16140 Fluzone Quadrivalent preservative free ( >=3yrs.) 17:35:35 CDT CPT-53362 Venipuncture Draw Fee 12:10:27 PROCUREMENT CONSULTANT CPT-68463 Fluzone Quadrivalent Intramuscular Suspe nsion 0.5 ML 10:49:13 CDT CPT-98263 First Vx Component - Ix admi n via ID IM or jet inj without physician counseling 15:17:19 PROCUREMENT CONSULTANT CPT-45346 Pneumovax 23 15:17:19 PROCUREMENT CONSULTANT CPT-07817 Pneumovax 14:52:45 PROCUREMENT CONSULTANT CPT-09121 Venipuncture Draw Fee 14:06:30 PROCUREMENT CONSULTANT CPT-000 Give Appropriate Flu Vaccine 14:18:34 PROCUREMENT CONSULTANT 2 CPT-53890 Administration single or combination vac cine inc oral 14:46:00 PROCUREMENT CONSULTANT CPT-22889 Influenza split virus > age 3 14:46:00 PROCUREMENT CONSULTANT CPT-OV Office Visit 19:13:16 CDT CPT-65712 Zostavax 18:41:56 CDT CPT-36481 Administration single or combination vac cine inc oral 12:56:39 CDT CPT-68769 Zoster Vaccine (Zostavax) 12:56:39 CDT 2012 CPT-16114 Venipuncture Draw Fee 10:58:57 CDT CPT-47584 Sono pelvis non OB uterus ovaries cervix 17:45:04 CDT CPT-05375 Sono retroperitoneal complete kidneys an d bladder 17:14:36 CDT CPT-OV Office Visit 14:59:38 PROCUREMENT CONSULTANT CPT-J1070 Depo Testosterone 100 mg 14:50:13 CDT 03/05 CPT-72839 Abx/Therapy Injection 14:50:13 CDT CPT-96257 Administration single or combination vac cine inc oral 14:34:43 CDT CPT-88226 Influenza split virus > age 3 14:34:43 CDT CPT-J1070 Depo Testosterone 100 mg 17:37:13 CDT 01/11 CPT-98450 Abx/Therapy Injection 17:37:13 CDT CPT-43806 Venipuncture Draw Fee 16:30:13 CDT CPT-96968 Venipuncture Draw Fee 16:29:43 CDT CPT-J1070 Depo Testosterone 100 mg 14:45:38 CDT 01/11
--- OUTSIDE RECORDS SUMMARY | 2019-10-27 11:55 | XMS REPORT | Clinical Summary ---
Author Author Admin, Elba Lance [facility] Address Unknown Phone Unavailable Allergies, [...] Childers MD Esophageal reflux HYPERTENSION 401.1 Active Baltazra Childers MD Benign essential hypertension EDEMA 782.3 [...] and one half) tabs once daily METHOCARBAMOL 08786637147 Active KENDALL Juarez Active SYNTHROID 112 MCG ORAL TABLET Take one tablet a day LEVOTHYROXINE SODIUM 24080938896 Active KENDALL Juarez Active TRUE METRIX AIR GLUCOSE METER DEVICE Use as directed BLOOD GLUCOSE MONITORING SUPPL 52807320671 Active Baltazar Childers MD Activ e TRUE METRIX BLOOD GLUCOSE TEST IN VITRO STRIP test blood sug ar BID Dx: E11.65 GLUCOSE BLOOD 05480271348 Active KENDALL Juarez Active NORTRIPTYLINE HCL 50 MG ORAL CAPSULE 1 twice a day for neuropathy 2 NORTRIPTYLINE HCL 20339080479 Active Ann Martinez PA-C Act amie ASPIRIN 81 MG TBEC Take one (1) tablet by mouth daily ASPIRIN 30688968984 Active Baltazar Childers MD Active GABAPENTIN 300 MG ORAL CAPSULE 1 three times a day 201 12/03/26 GABAPENTIN 36953245854 No Longer Active Baltazar Childers MD Activ e LISINOPRIL 20 MG ORAL TABLET 1 tablet by mouth daily at night 2016 LISINOPRIL 29000140390 Active Ann Martinez PA-C Active ZITHROMAX Z-ISAIAS 250 MG ORAL TABLET Take two tablets to day and then 1 tablet daily for 4 days AZITHROMYCIN 20401099261 No Longer A ctive Baltazar Childers MD Active LANTUS SOLOSTAR 100 UNIT/ML SUBCUTANEOUS SOLUTION PEN- INJECTOR 30 units SC daily INSULIN GLARGINE 55576110133 Active Baltazar Childers MD Active AMLODIPINE BESYLATE 5 MG ORAL TABLET 1 tab daily for HTN AMLODIPINE BESYLATE 67260997979 Active Ann Martinez PA-C Active GLIPIZIDE 10 MG ORAL TABLET take 2 tablets twice daily GLIPIZIDE 57341520203 Active KENDALL Juarez Active SUCRALFATE 1 GM ORAL TABLET 1 four times a day to coat the stoma ch SUCRALFATE 80644829286 No Longer Active Baltazar Childers MD Active PEN NEEDLES 31G X 6 MM use 1 daily INSULIN PEN NE EDLE 31222931314 Active KENDALL Juarez Active TOUJEO SOLOSTAR 300 UNIT/ML SUBCUTANEOUS SOLUTION PEN- INJECTOR 10 units SC daily INSULIN GLARGINE 27679178518 No Longer Active Rola ARGUETA Active NAPROXEN SODIUM 220 MG ORAL TABLET 1 three times a day as needed NAPROXEN SODIUM 14792102575 No Longer Active Baltazar Childers MD Active ATORVASTATIN CALCIUM 20 MG ORAL TABLET Take 1 tab daily ATORVASTATIN CALCIUM 11937077263 Active Baltazar Childers MD A ctive FUROSEMIDE 40 MG ORAL TABLET Take one by mouth daily FUROSEMIDE 94932988354 Active Baltazar Childers MD Active LISINOPRIL 20 MG ORAL TABLET Take one by mouth daily at bedtime LISINOPRIL 08791799430 No Longer Active Baltazar Childers MD Active ONETOUCH ULTRA BLUE IN VITRO STRIP Test twice a day 07/11/11 GLUCOSE BLOOD 78464325894 No Longer Active Baltazar Childers MD Acti ve TRUEPLUS LANCETS 33G Test twice a day LANCETS 5708416 3827 Active KENDALL Juarez Active TRUEDRAW LANCING DEVICE Test twice a day LANCET DEVICES 73274445886 Active Baltazar Childers MD Active TRUETRACK BLOOD GLUCOSE w/Device KIT Test twice a day BLOOD GLUCOSE MONITORING SUPPL 83981829598 Active Baltazar Childers MD Activ e HYDROCODONE-ACETAMINOPHEN 7.5-325 MG ORAL TABLET Take 1 tab every 6-8 hours PRN HYDROCODONE-ACETAMINOPHEN 60129523507 Active Ann maciel PA-C Active GABAPENTIN 300 MG ORAL CAPSULE 1 po qd x 2 days, then 1 po BID x 2 days, then 1 po TID GABAPENTIN 66608787597 No Longer Active Baltazar Childers MD Active TRAMADOL HCL 50 MG ORAL TABLET 1 twice a day as needed for pain 201 07/27/28 TRAMADOL HCL 23610306748 Active Baltazar Childers MD Active NAPROXEN 500 MG ORAL TABLET 1 tablet by mouth twice daily NAPROXEN 96026886120 No Longer Active Baltazar Childers MD Active PROAIR HFA 108 (90 Base) MCG/ACT INHALATION AEROSOL SO LUTION 2 puffs four times a day as needed ALBUTEROL SULFATE 24825274505 Active KENDALL Bowie Active DEPO-TESTOSTERONE 200 MG/ML INTRAMUSCULAR SOLUTION as directed TESTOSTERONE CYPIONATE 33007689317 No Longer Active Baltazar Childers MD Active LIPITOR 20 MG ORAL TABLET Take one by mouth daily in evening ATORVASTATIN CALCIUM 84595342259 No Longer Active Baltazar Childers MD Active CRESTOR 10 MG ORAL TABLET 1 by mouth every day ROSUVASTATIN CALCIUM 10259454743 No Longer Active Baltazar Childers MD Active PHENTERMINE HCL 37.5 MG ORAL TABLET Take one by mouth daily PHENTERMINE HCL 31419509387 No Longer Active Baltazar Childers MD Ac tive TIZANIDINE HCL 4 MG ORAL TABLET 1 daily as needed for muscle spa sm TIZANIDINE HCL 56655512058 No Longer Active Dawna Salazar RN Active [id number] 50-325-40 MG ORAL TABLET 1 fo ur times a day as needed for heacache [id number] 11443758495 Active KENDALL Juarez Active SUMATRIPTAN SUCCINATE 100 MG ORAL TABLET 1 tablet by m outh at onset of migraine as needed SUMATRIPTAN SUCCINATE 21638623225 Active KENDALL Restrepo Active LORATADINE 10 MG ORAL TABLET Take one by mouth daily LORATADINE 67820819348 Active KENDALL Juarez Active OMEPRAZOLE 20 MG ORAL CAPSULE DELAYED RELEASE Take one by mouth jostin ly OMEPRAZOLE 40365753093 Active Ann Martinez PA-C Active HYDROXYZINE HCL 25 MG ORAL TABLET Take one by mouth daily HYDROXYZINE HCL 94158953882 Active Baltazar Childers MD Active ALPRAZOLAM 1 MG ORAL TABLET 1 [facility] 78278107490 Active Baltazar Childers MD Active METFORMIN HCL 1000 MG ORAL TABLET Take one by mouth twice daily METFORMIN HCL 15382748093 Active Baltazar Childers MD Active TIZANIDINE HCL 4 MG ORAL TABLET 1 daily as needed for muscle spa sm TIZANIDINE HCL 4 MG ORAL TABLET 525042 TIZANIDINE HCL Inactive PHENTERMINE HCL 37.5 MG ORAL TABLET Take one by mouth daily PHENTERMINE HCL 37.5 MG ORAL TABLET 646288 PHENTERMINE HCL Inac tive CRESTOR 10 MG ORAL TABLET 1 by mouth every day CRESTOR 10 MG ORAL TABLET 717074 ROSUVASTATIN CALCIUM Inactive LIPITOR 20 MG ORAL TABLET Take one by mouth daily in evening LIPITOR 20 MG ORAL TABLET 340916 ATORVASTATIN CALCIUM Inactive DEPO-TESTOSTERONE 200 MG/ML INTRAMUSCULAR SOLUTION as directed DEPO-TESTOSTERONE 200 MG/ML INTRAMUSCULAR SOLUTION 1323730 RUFINO TOSTERONE CYPIONATE Inactive NAPROXEN 500 MG ORAL TABLET 1 tablet by mouth twice daily NAPROXEN 500 MG ORAL TABLET 273722 NAPROXEN Inactive GABAPENTIN 300 MG ORAL CAPSULE 1 po qd x 2 days, then 1 po BID x 2 days, then 1 po TID GABAPENTIN 300 MG ORAL CAPSULE 426386 GABAP ENTIN Inactive ONETOUCH ULTRA BLUE IN VITRO STRIP Test twice a day 07/11/11 ONETOUCH ULTRA BLUE IN VITRO STRIP GLUCOSE BLOOD Inact amie NAPROXEN SODIUM 220 MG ORAL TABLET 1 three times a day as needed NAPROXEN SODIUM 220 MG ORAL TABLET 722349 NAPROXEN SODI UM Inactive TOUJEO SOLOSTAR 300 UNIT/ML SUBCUTANEOUS SOLUTION PEN- INJECTOR 10 units SC daily TOUJEO SOLOSTAR 300 UNIT/ML SUBCUTANEOUS SOLUTION PEN-INJECTOR INSULIN GLARGINE Inactive SUCRALFATE 1 GM ORAL TABLET 1 four times a day to coat the stoma SUCRALFATE 1 GM ORAL TABLET 522628 SUCRALFATE Inac tive GABAPENTIN 300 MG ORAL CAPSULE 1 three times a day 201 12/03/26 GABAPENTIN 300 MG ORAL CAPSULE 069744 GABAPENTIN Inactive ZITHROMAX Z-ISAIAS 250 MG ORAL TABLET Take two tablets to day and then 1 tablet daily for 4 days ZITHROMAX Z-ISAIAS 250 MG ORAL TAB LET 780868 AZITHROMYCIN Inactive Immunizations Vaccine Administration Date Value Standard Floyd cription pneumococcal immunization administered Pneumovax 23 [CVX33] pneumococcal polysaccharide vaccine, 23 valent Seasonal influenza vaccine, injectable, containing preservative, for > 3 years old (Afluria, FluLaval, Fluzone, Fluvirin, Fluarix, Agriflu(>= 18 yo)) Fluzone (>3 yrs.) [OPF213] Influenza, seasonal, inject able Seasonal influenza vaccine, injectable, containing preservative, for > 3 years old (Afluria, FluLaval, Fluzone, Fluvirin, Fluarix, Agriflu(>= 18 yo)) Fluzone (>3 yrs.) [LAE473] Influenza, seasonal, inject able Vital Signs Date [...] - Chem istry sodium, serum 139 mmol/L 822-116 0028/06/26 potassium, serum 4.8 mmol/L 3.5-5.2 chloride, serum [...] (L) - Chemistry cholesterol, serum 209 mg/dL 767-291 7217/12/27 triglyceride, serum, fasting 329 mg/dL 30-200 HDL cholesterol, serum 56 mg/dL 32-60 LDL cholesterol, serum 87 mg/dL 0-130 TSH 3.60 m[iU]/mL 0.36-3.74 Lab Report: Thyroid Stimulating Hormone (L) - Chemistry TSH 8.56 m[iU]/mL 0.36-3.74 Office Visit: Meds Check - Toxicology drug screen, urine, qualitative negative Encounters Code Encounter Date Provider Facility CPT-73501 [id number] Vst-Est Level IV 13:49:[facility] 4 Est. Patient 17:26:08 CDT Ann trujillo PA-C [facility] CPT-68085 [id number] Vst-Est Level V 14:26:27 CDT Aneudy Childers MD [facility] CPT-28744 Level 4 Est. Patient 17:05:37 CDT Baltazar Childers MD [facility] CPT-69619 Level 4 Est. Patient 16:21:19 [facility] [employer] Baltazar Childers MD [facility] CPT-35724 Level 4 Est. Patient 12:25:11 CDT Baltazar Childers MD [facility] CPT-61662 Level 4 Est. Patient 14:22:31 CDT Baltazar Childers MD [facility] CPT-53219 Level 4 Est. Patient 15:44:38 CDT Shonna Parker APRN [facility] CPT-86823 Level 4 Est. Patient 11:34:17 CDT Baltazar Childers MD [facility] CPT-60083 Level 3 Est. Patient 16:40:40 CDT Baltazar Childers MD [facility]-26574 Level 4 Est. Patient 10:41:24 CDT Baltazar Childers MD [facility]-10030 Level 4 Est. Patient 16:01:48 CDT Baltazar Childers MD [facility]-89815 Level 4 Est. Patient 16:54:07 [facility] [employer] Baltazar Childers MD [facility]-54280 Level 4 Est. Patient 15:42:12 CDT Baltazar Childers MD [facility] CPT-73640 Level 4 Est. Patient 11:29:55 CDT Baltazar Childers MD [facility]-46002 Level 4 Est. Patient 14:15:19 CDT Baltazar Childers MD [facility]-75999 Level 4 Est. Patient 12:20:13 CDT Baltazar Childers MD [facility]-74558 Level 4 Est. Patient 14:52:45 [employer] Baltazar Childers MD [facility]-28878 Level 4 Est. Patient 14:18:34 [employer] Baltazar Childers MD [facility]-74116 Level 4 Est. Patient 15:18:29 CDT Baltazar Childers MD [facility]-14006 Level 3 Est. Patient 12:45:34 CDT Baltazar Childers MD [facility]-02550 Level 3 Est. Patient 10:10:11 CDT Baltazar Childers MD [facility]-78454 Level 3 Est. Patient 14:07:50 CDT Baltazar Childers MD [facility]-68186 Level 4 Est. Patient 12:26:10 [employer] Baltazar Childers MD [facility]-84374 Level 4 Est. Patient 14:45:38 CDT Baltazar Childers MD [facility] CPT-83386 Level 4 New Patient 12:30:48 CDT Baltazar hinton MD [facility] Procedures Code Procedure Name Date Entry Date Standard Desc ription CPT-000 Give Appropriate Flu Vaccine 12:25:14 CDT 2 CPT-27801 First Vx - Ix admin via ID I M or jet injects without counseling by physician 13:08:59 CDT CPT-20035 Fluzone Quadrivalent Intramuscular Suspe nsion 0.5 ML 13:08:59 CDT CPT-35010 Venipuncture Draw Fee 12:04:12 CDT CPT-85466 Lipid - LAB USE ONLY 17:39:15 [employer] 9 CPT-31224 HGBA1C - LAB USE ONLY 17:39:15 [employer] CPT-15227 CMP - LAB USE ONLY 17:39:14 [employer] CPT-15495 Venipuncture Draw Fee 17:39:14 [employer] CPT-77207 First Vx - Ix admin via ID I M or jet injects without counseling by physician 16:55:17 [employer] CPT-55565 Fluzone Quadrivalent Intramuscular Suspe nsion 0.5 ML 16:55:17 [employer] CPT-68919 Renal Panel - LAB USE ONLY 17:39:20 CDT 201 10/31/07 CPT-88869 CBC - LAB USE ONLY 17:39:20 CDT CPT-41813 Venipuncture Draw Fee 17:39:20 CDT CPT-32151 Venipuncture Draw Fee 14:33:30 CDT CPT-16692 Renal Panel - LAB USE ONLY 14:33:30 CDT 201 10/31/07 CPT-51026 CBC - LAB USE ONLY 14:33:29 CDT CPT-57964 Venipuncture Draw Fee 14:50:21 [employer] CPT-44454 Immunization Single Admin 17:35:35 CDT 2014 CPT-39451 Fluzone Quadrivalent preservative free ( >=3yrs.) 17:35:35 CDT CPT-02336 Venipuncture Draw Fee 12:10:27 [employer] CPT-45370 Fluzone Quadrivalent Intramuscular Suspe nsion 0.5 ML 10:49:13 CDT CPT-51675 First Vx Component - Ix admi n via ID IM or jet inj without physician counseling 15:17:19 [employer] CPT-11430 Pneumovax 23 15:17:19 [employer] CPT-17048 Pneumovax 14:52:45 [employer] CPT-31679 Venipuncture Draw Fee 14:06:30 [employer] CPT-000 Give Appropriate Flu Vaccine 14:18:34 [employer] 2 CPT-32864 Administration single or combination vac cine inc oral 14:46:00 [employer] CPT-39441 Influenza split virus > age 3 14:46:00 [employer] CPT-OV Office Visit 19:13:16 CDT CPT-17209 Zostavax 18:41:56 CDT CPT-42747 Administration single or combination vac cine inc oral 12:56:39 CDT CPT-02688 Zoster Vaccine (Zostavax) 12:56:39 CDT 2012 CPT-35105 Venipuncture Draw Fee 10:58:57 CDT CPT-68428 Sono pelvis non OB uterus ovaries cervix 17:45:04 CDT CPT-99258 Sono retroperitoneal complete kidneys an d bladder 17:14:36 CDT CPT-OV Office Visit 14:59:38 [employer] CPT-J1070 Depo Testosterone 100 mg 14:50:13 CDT 03/05 CPT-58261 Abx/Therapy Injection 14:50:13 CDT CPT-17803 Administration single or combination vac cine inc oral 14:34:43 CDT CPT-31075 Influenza split virus > age 3 14:34:43 CDT CPT-J1070 Depo Testosterone 100 mg 17:37:13 CDT 01/11 CPT-77967 Abx/Therapy Injection 17:37:13 CDT CPT-75235 Venipuncture Draw Fee 16:30:13 CDT CPT-52962 Venipuncture Draw Fee 16:29:43 CDT CPT-J1070 Depo Testosterone 100 mg 14:45:38 CDT 01/11
--- OUTSIDE RECORDS SUMMARY | 2019-10-27 11:55 | XMS REPORT | Clinical Summary ---
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 Benign neoplasm of colon PERIPHERAL NEUROPATHY 356.9 [...] ronary atherosclerosis of unspecified type of vessel, [place] or graft OTH NONSPC ABN FINDNG RAD&OTH [...] and one half) tabs once daily METHOCARBAMOL 87230264267 Active KENDALL Juarez Active SYNTHROID 112 MCG ORAL TABLET Take one tablet a day LEVOTHYROXINE SODIUM 74441216055 Active KENDALL Juarez Active TRUE METRIX AIR GLUCOSE METER DEVICE Use as directed BLOOD GLUCOSE MONITORING SUPPL 02281863427 Active Baltazar Childers MD Activ e TRUE METRIX BLOOD GLUCOSE TEST IN VITRO STRIP test blood sug ar BID Dx: E11.65 GLUCOSE BLOOD 34869696029 Active KENDALL Juarez Active NORTRIPTYLINE HCL 50 MG ORAL CAPSULE 1 twice a day for neuropathy 2 NORTRIPTYLINE HCL 37014042085 Active Ann Martinez PA-C Act amie ASPIRIN 81 MG TBEC Take one (1) tablet by mouth daily ASPIRIN 78275985208 Active Baltazar Childers MD Active GABAPENTIN 300 MG ORAL CAPSULE 1 three times a day 201 12/03/26 GABAPENTIN 82464589015 No Longer Active Baltazar Childers MD Activ e LISINOPRIL 20 MG ORAL TABLET 1 tablet by mouth daily at night 2016 LISINOPRIL 47336267647 Active Ann Martinez PA-C Active ZITHROMAX Z-ISAIAS 250 MG ORAL TABLET Take two tablets to day and then 1 tablet daily for 4 days AZITHROMYCIN 31928709902 No Longer A ctive Baltazar Childers MD Active LANTUS SOLOSTAR 100 UNIT/ML SUBCUTANEOUS SOLUTION PEN- INJECTOR 30 units SC daily INSULIN GLARGINE 56079007814 Active Baltazar Childers MD Active AMLODIPINE BESYLATE 5 MG ORAL TABLET 1 tab daily for HTN AMLODIPINE BESYLATE 76854531547 Active Ann Martinez PA-C Active GLIPIZIDE 10 MG ORAL TABLET take 2 tablets twice daily GLIPIZIDE 88367362405 Active KENDALL Juarez Active SUCRALFATE 1 GM ORAL TABLET 1 four times a day to coat the stoma ch SUCRALFATE 80492357614 No Longer Active Baltazar Childers MD Active PEN NEEDLES 31G X 6 MM use 1 daily INSULIN PEN NE EDLE 06947161015 Active KENDALL Juarez Active TOUJEO SOLOSTAR 300 UNIT/ML SUBCUTANEOUS SOLUTION PEN- INJECTOR 10 units SC daily INSULIN GLARGINE 05326511693 No Longer Active Rola ARGUETA Active NAPROXEN SODIUM 220 MG ORAL TABLET 1 three times a day as needed NAPROXEN SODIUM 74680039802 No Longer Active Baltazar Childers MD Active ATORVASTATIN CALCIUM 20 MG ORAL TABLET Take 1 tab daily ATORVASTATIN CALCIUM 84003694835 Active Baltazar Childers MD A ctive FUROSEMIDE 40 MG ORAL TABLET Take one by mouth daily FUROSEMIDE 26017126778 Active Baltazar Childers MD Active LISINOPRIL 20 MG ORAL TABLET Take one by mouth daily at bedtime LISINOPRIL 79351124191 No Longer Active Baltazar Childers MD Active ONETOUCH ULTRA BLUE IN VITRO STRIP Test twice a day 07/11/11 GLUCOSE BLOOD 31278506790 No Longer Active Baltazar Childers MD Acti ve TRUEPLUS LANCETS 33G Test twice a day LANCETS 2946272 4680 Active KENDALL Juarez Active TRUEDRAW LANCING DEVICE Test twice a day LANCET DEVICES 51259247475 Active Baltazar Childers MD Active TRUETRACK BLOOD GLUCOSE w/Device KIT Test twice a day BLOOD GLUCOSE MONITORING SUPPL 26948773273 Active Baltazar Childers MD Activ e HYDROCODONE-ACETAMINOPHEN 7.5-325 MG ORAL TABLET Take 1 tab every 6-8 hours PRN HYDROCODONE-ACETAMINOPHEN 56159466154 Active Ann maciel PA-C Active GABAPENTIN 300 MG ORAL CAPSULE 1 po qd x 2 days, then 1 po BID x 2 days, then 1 po TID GABAPENTIN 51484185211 No Longer Active Baltazar Childers MD Active TRAMADOL HCL 50 MG ORAL TABLET 1 twice a day as needed for pain 201 07/27/28 TRAMADOL HCL 51589114093 Active Baltazar Childers MD Active NAPROXEN 500 MG ORAL TABLET 1 tablet by mouth twice daily NAPROXEN 25203261864 No Longer Active Baltazar Childers MD Active PROAIR HFA 108 (90 Base) MCG/ACT INHALATION AEROSOL SO LUTION 2 puffs four times a day as needed ALBUTEROL SULFATE 81390566669 Active KENDALL Bowie Active DEPO-TESTOSTERONE 200 MG/ML INTRAMUSCULAR SOLUTION as directed TESTOSTERONE CYPIONATE 18018802370 No Longer Active Baltazar Childers MD Active LIPITOR 20 MG ORAL TABLET Take one by mouth daily in evening ATORVASTATIN CALCIUM 41511665848 No Longer Active Baltazar Childers MD Active CRESTOR 10 MG ORAL TABLET 1 by mouth every day ROSUVASTATIN CALCIUM 36925252768 No Longer Active Baltazar Childers MD Active PHENTERMINE HCL 37.5 MG ORAL TABLET Take one by mouth daily PHENTERMINE HCL 02298375282 No Longer Active Baltazar Childers MD Ac tive TIZANIDINE HCL 4 MG ORAL TABLET 1 daily as needed for muscle spa sm TIZANIDINE HCL 31453875375 No Longer Active Dawna Salazar RN Active [id number] 50-325-40 MG ORAL TABLET 1 fo ur times a day as needed for heacache [id number] 83378482180 Active KENDALL Juarez Active SUMATRIPTAN SUCCINATE 100 MG ORAL TABLET 1 tablet by m outh at onset of migraine as needed SUMATRIPTAN SUCCINATE 28006948100 Active KENDALL Restrepo Active LORATADINE 10 MG ORAL TABLET Take one by mouth daily LORATADINE 82898944583 Active KENDALL Juarez Active OMEPRAZOLE 20 MG ORAL CAPSULE DELAYED RELEASE Take one by mouth jostin ly OMEPRAZOLE 47150642276 Active Ann Martinez PA-C Active HYDROXYZINE HCL 25 MG ORAL TABLET Take one by mouth daily HYDROXYZINE HCL 23209130733 Active Baltazar Childers MD Active ALPRAZOLAM 1 MG ORAL TABLET 1 [facility] 08496699509 Active Baltazar Childers MD Active METFORMIN HCL 1000 MG ORAL TABLET Take one by mouth twice daily METFORMIN HCL 27129373863 Active Baltazar Childers MD Active TIZANIDINE HCL 4 MG ORAL TABLET 1 daily as needed for muscle spa sm TIZANIDINE HCL 4 MG ORAL TABLET 071776 TIZANIDINE HCL Inactive PHENTERMINE HCL 37.5 MG ORAL TABLET Take one by mouth daily PHENTERMINE HCL 37.5 MG ORAL TABLET 087136 PHENTERMINE HCL Inac tive CRESTOR 10 MG ORAL TABLET 1 by mouth every day CRESTOR 10 MG ORAL TABLET 203232 ROSUVASTATIN CALCIUM Inactive LIPITOR 20 MG ORAL TABLET Take one by mouth daily in evening LIPITOR 20 MG ORAL TABLET 558898 ATORVASTATIN CALCIUM Inactive DEPO-TESTOSTERONE 200 MG/ML INTRAMUSCULAR SOLUTION as directed DEPO-TESTOSTERONE 200 MG/ML INTRAMUSCULAR SOLUTION 0487499 RUFINO TOSTERONE CYPIONATE Inactive NAPROXEN 500 MG ORAL TABLET 1 tablet by mouth twice daily NAPROXEN 500 MG ORAL TABLET 151792 NAPROXEN Inactive GABAPENTIN 300 MG ORAL CAPSULE 1 po qd x 2 days, then 1 po BID x 2 days, then 1 po TID GABAPENTIN 300 MG ORAL CAPSULE 669140 GABAP ENTIN Inactive ONETOUCH ULTRA BLUE IN VITRO STRIP Test twice a day 07/11/11 ONETOUCH ULTRA BLUE IN VITRO STRIP GLUCOSE BLOOD Inact amie NAPROXEN SODIUM 220 MG ORAL TABLET 1 three times a day as needed NAPROXEN SODIUM 220 MG ORAL TABLET 478434 NAPROXEN SODI UM Inactive TOUJEO SOLOSTAR 300 UNIT/ML SUBCUTANEOUS SOLUTION PEN- INJECTOR 10 units SC daily TOUJEO SOLOSTAR 300 UNIT/ML SUBCUTANEOUS SOLUTION PEN-INJECTOR INSULIN GLARGINE Inactive SUCRALFATE 1 GM ORAL TABLET 1 four times a day to coat the stoma SUCRALFATE 1 GM ORAL TABLET 294630 SUCRALFATE Inac tive GABAPENTIN 300 MG ORAL CAPSULE 1 three times a day 201 12/03/26 GABAPENTIN 300 MG ORAL CAPSULE 168331 GABAPENTIN Inactive ZITHROMAX Z-ISAIAS 250 MG ORAL TABLET Take two tablets to day and then 1 tablet daily for 4 days ZITHROMAX Z-ISAIAS 250 MG ORAL TAB LET 237999 AZITHROMYCIN Inactive Immunizations Vaccine Administration Date Value Standard Floyd cription pneumococcal immunization administered Pneumovax 23 [CVX33] pneumococcal polysaccharide vaccine, 23 valent Seasonal influenza vaccine, injectable, containing preservative, for > 3 years old (Afluria, FluLaval, Fluzone, Fluvirin, Fluarix, Agriflu(>= 18 yo)) Fluzone (>3 yrs.) [GWI006] Influenza, seasonal, inject able Seasonal influenza vaccine, injectable, containing preservative, for > 3 years old (Afluria, FluLaval, Fluzone, Fluvirin, Fluarix, Agriflu(>= 18 yo)) Fluzone (>3 yrs.) [UFN900] Influenza, seasonal, inject able Vital Signs Date [...] d blood pressure, diastolic 69 mm[Hg] BP [place] blood pressure, systolic 140 mm[Hg] BP sys [...] - Chem istry sodium, serum 139 mmol/L 417-129 7639/06/26 potassium, serum 4.8 mmol/L 3.5-5.2 chloride, serum [...] (L) - Chemistry cholesterol, serum 209 mg/dL 797-989 9334/12/27 triglyceride, serum, fasting 329 mg/dL 30-200 HDL cholesterol, serum 56 mg/dL 32-60 LDL cholesterol, serum 87 mg/dL 0-130 TSH 3.60 m[iU]/mL 0.36-3.74 Lab Report: Thyroid Stimulating Hormone (L) - Chemistry TSH 8.56 m[iU]/mL 0.36-3.74 Office Visit: Meds Check - Toxicology drug screen, urine, qualitative negative Encounters Code Encounter Date Provider Facility CPT-37613 [id number] Vst-Est Level IV [facility] 4 Est. Patient 17:26:08 CDT Ann trujillo PA-C [facility] CPT-57552 [id number] Vst-Est Level V 14:26:27 CDT Aneudy Childers MD [facility] CPT-56225 Level 4 Est. Patient 17:05:37 CDT Baltazar Childers MD [facility] CPT-52833 Level 4 Est. Patient 16:21:19 WINTER INTERN Baltazar Childers MD [facility] CPT-77469 Level 4 Est. Patient 12:25:11 CDT Baltazar Childers MD [facility] CPT-15441 Level 4 Est. Patient 14:22:31 CDT Baltazar Childers MD [facility] CPT-90303 Level 4 Est. 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 Patient 11:34:17 CDT Baltazar Childers MD [facility] CPT-38222 Level 3 Est. Patient 16:40:40 CDT Baltazar Childers MD [facility] CPT-92081 Level 4 Est. Patient 10:41:24 CDT Baltazar Childers MD [facility]-18498 Level 4 Est. Patient 16:01:48 CDT Baltazar Childers MD [facility]-84691 Level 4 Est. Patient 16:54:07 WINTER INTERN Baltazar Childers MD [facility]-47498 Level 4 Est. Patient 15:42:12 CDT Baltazar Childers MD [facility] CPT-06490 Level 4 Est. Patient 11:29:55 CDT Baltazar Childers MD [facility]-23614 Level 4 Est. Patient 14:15:19 CDT Baltazar Childers MD [facility]-07942 Level 4 Est. Patient 12:20:13 CDT Baltazar Childers MD [facility]-08367 Level 4 Est. Patient 14:52:45 WINTER INTERN Baltazar Childers MD [facility]-12267 Level 4 Est. Patient 14:18:34 WINTER INTERN Baltazar Childers MD [facility]-13708 Level 4 Est. Patient 15:18:29 CDT Baltazar Childers MD [facility]-55085 Level 3 Est. Patient 12:45:34 CDT Baltazar Childers MD [facility]-13787 Level 3 Est. Patient 10:10:11 CDT Baltazar Childers MD [facility]-93853 Level 3 Est. Patient 14:07:50 CDT Baltazar Childers MD [facility]-00871 Level 4 Est. Patient 12:26:10 WINTER INTERN Baltazar Childers MD [facility]-73647 Level 4 Est. Patient 14:45:38 CDT Baltazar Childers MD [facility] CPT-57928 Level 4 New Patient 12:30:48 CDT Baltazar hinton MD [facility] Procedures Code Procedure Name Date Entry Date Standard Desc ription CPT-000 Give Appropriate Flu Vaccine 12:25:14 CDT 2 CPT-61427 First Vx - Ix admin via ID I M or jet injects without counseling by physician 13:08:59 CDT CPT-02946 Fluzone Quadrivalent Intramuscular Suspe nsion 0.5 ML 13:08:59 CDT CPT-56258 Venipuncture Draw Fee 12:04:12 CDT CPT-41919 Lipid - LAB USE ONLY 17:39:15 WINTER INTERN 9 CPT-36989 HGBA1C - LAB USE ONLY 17:39:15 WINTER INTERN CPT-50868 CMP - LAB USE ONLY 17:39:14 WINTER INTERN CPT-63343 Venipuncture Draw Fee 17:39:14 WINTER INTERN CPT-98120 First Vx - Ix admin via ID I M or jet injects without counseling by physician 16:55:17 WINTER INTERN CPT-90608 Fluzone Quadrivalent Intramuscular Suspe nsion 0.5 ML 16:55:17 WINTER INTERN CPT-75549 Renal Panel - LAB USE ONLY 17:39:20 CDT 201 10/31/07 CPT-91762 CBC - LAB USE ONLY 17:39:20 CDT CPT-24726 Venipuncture Draw Fee 17:39:20 CDT CPT-26513 Venipuncture Draw Fee 14:33:30 CDT CPT-41615 Renal Panel - LAB USE ONLY 14:33:30 CDT 201 10/31/07 CPT-55067 CBC - LAB USE ONLY 14:33:29 CDT CPT-96225 Venipuncture Draw Fee 14:50:21 WINTER INTERN CPT-78179 Immunization Single Admin 17:35:35 CDT 2014 CPT-86711 Fluzone Quadrivalent preservative free ( >=3yrs.) 17:35:35 CDT CPT-19532 Venipuncture Draw Fee 12:10:27 WINTER INTERN CPT-07469 Fluzone Quadrivalent Intramuscular Suspe nsion 0.5 ML 10:49:13 CDT CPT-54476 First Vx Component - Ix admi n via ID IM or jet inj without physician counseling 15:17:19 WINTER INTERN CPT-24449 Pneumovax 23 15:17:19 WINTER INTERN CPT-65512 Pneumovax 14:52:45 WINTER INTERN CPT-09217 Venipuncture Draw Fee 14:06:30 WINTER INTERN CPT-000 Give Appropriate Flu Vaccine 14:18:34 WINTER INTERN 2 CPT-32983 Administration single or combination vac cine inc oral 14:46:00 WINTER INTERN CPT-58379 Influenza split virus > age 3 14:46:00 WINTER INTERN CPT-OV Office Visit 19:13:16 CDT CPT-72738 Zostavax 18:41:56 CDT CPT-88926 Administration single or combination vac cine inc oral 12:56:39 CDT CPT-54943 Zoster Vaccine (Zostavax) 12:56:39 CDT 2012 CPT-34873 Venipuncture Draw Fee 10:58:57 CDT CPT-10927 Sono pelvis non OB uterus ovaries cervix 17:45:04 CDT CPT-01957 Sono retroperitoneal complete kidneys an d bladder 17:14:36 CDT CPT-OV Office Visit 14:59:38 WINTER INTERN CPT-J1070 Depo Testosterone 100 mg 14:50:13 CDT 03/05 CPT-10521 Abx/Therapy Injection 14:50:13 CDT CPT-17468 Administration single or combination vac cine inc oral 14:34:43 CDT CPT-41869 Influenza split virus > age 3 14:34:43 CDT CPT-J1070 Depo Testosterone 100 mg 17:37:13 CDT 01/11 CPT-83848 Abx/Therapy Injection 17:37:13 CDT CPT-14431 Venipuncture Draw Fee 16:30:13 CDT CPT-61159 Venipuncture Draw Fee 16:29:43 CDT CPT-J1070 Depo Testosterone 100 mg 14:45:38 CDT 01/11
--- OUTSIDE RECORDS SUMMARY | 2019-10-27 11:56 | XMS REPORT | Clinical Summary ---
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 Benign neoplasm of colon PERIPHERAL NEUROPATHY 356.9 [...] ronary atherosclerosis of unspecified type of vessel, sh[place]cock or graft OTH NONSPC ABN FINDNG RAD&OTH [...] and one half) tabs once daily METHOCARBAMOL 83641851972 Active KENDALL Juarez Active SYNTHROID 112 MCG ORAL TABLET Take one tablet a day LEVOTHYROXINE SODIUM 26492575763 Active Agata Silveira MA Active TRUE METRIX AIR GLUCOSE METER DEVICE Use as directed BLOOD GLUCOSE MONITORING SUPPL 27741354972 Active Baltazar Childers MD Activ e TRUE METRIX BLOOD GLUCOSE TEST IN VITRO STRIP test blood sug ar BID Dx: E11.65 GLUCOSE BLOOD 12319157147 Active Ct Ledesma MA Active NORTRIPTYLINE HCL 50 MG ORAL CAPSULE 1 twice a day for neuropathy 2 NORTRIPTYLINE HCL 07973761506 Active Ann Martinez PA-C Act amie ASPIRIN 81 MG TBEC Take one (1) tablet by mouth daily ASPIRIN 96894509933 Active Baltazar Childers MD Active GABAPENTIN 300 MG ORAL CAPSULE 1 three times a day 201 12/03/26 GABAPENTIN 25433451824 No Longer Active Baltazar Childers MD Activ e LISINOPRIL 20 MG ORAL TABLET 1 tablet by mouth daily at night 2016 LISINOPRIL 27533615445 Active Ann Martinez PA-C Active ZITHROMAX Z-ISAIAS 250 MG ORAL TABLET Take two tablets to day and then 1 tablet daily for 4 days AZITHROMYCIN 51082995052 No Longer A ctive Baltazar Childers MD Active LANTUS SOLOSTAR 100 UNIT/ML SUBCUTANEOUS SOLUTION PEN- INJECTOR 30 units SC daily INSULIN GLARGINE 16675928591 Active Baltazar Childers MD Active AMLODIPINE BESYLATE 5 MG ORAL TABLET 1 tab daily for HTN AMLODIPINE BESYLATE 83737411910 Active Ann Martinez PA-C Active GLIPIZIDE 10 MG ORAL TABLET take 2 tablets twice daily GLIPIZIDE 82011655243 Active KENDALL Juarez Active SUCRALFATE 1 GM ORAL TABLET 1 four times a day to coat the stoma ch SUCRALFATE 92992707899 No Longer Active Baltazar Childers MD Active PEN NEEDLES 31G X 6 MM use 1 daily INSULIN PEN NE EDLE 65678935881 Active KENDALL Juarez Active TOUJEO SOLOSTAR 300 UNIT/ML SUBCUTANEOUS SOLUTION PEN- INJECTOR 10 units SC daily INSULIN GLARGINE 31747861595 No Longer Active Rola ARGUETA Active NAPROXEN SODIUM 220 MG ORAL TABLET 1 three times a day as needed NAPROXEN SODIUM 39754322795 No Longer Active Baltazar Childers MD Active ATORVASTATIN CALCIUM 20 MG ORAL TABLET Take 1 tab daily ATORVASTATIN CALCIUM 16172541829 Active Baltazar Childers MD A ctive FUROSEMIDE 40 MG ORAL TABLET Take one by mouth daily FUROSEMIDE 31474097274 Active Baltazar Childers MD Active LISINOPRIL 20 MG ORAL TABLET Take one by mouth daily at bedtime LISINOPRIL 26302738994 No Longer Active Baltazar Childers MD Active ONETOUCH ULTRA BLUE IN VITRO STRIP Test twice a day 07/11/11 GLUCOSE BLOOD 07895710383 No Longer Active Baltazar Childers MD Acti ve TRUEPLUS LANCETS 33G Test twice a day LANCETS 6133769 8464 Active KENDALL Juarez Active TRUEDRAW LANCING DEVICE Test twice a day LANCET DEVICES 78313317030 Active Baltazar Childers MD Active TRUETRACK BLOOD GLUCOSE w/Device KIT Test twice a day BLOOD GLUCOSE MONITORING SUPPL 30927494551 Active Baltazar Childers MD Activ e HYDROCODONE-ACETAMINOPHEN 7.5-325 MG ORAL TABLET Take 1 tab every 6-8 hours PRN HYDROCODONE-ACETAMINOPHEN 61192409927 Active Ann maciel PA-C Active GABAPENTIN 300 MG ORAL CAPSULE 1 po qd x 2 days, then 1 po BID x 2 days, then 1 po TID GABAPENTIN 14983781354 No Longer Active Baltazar Childers MD Active TRAMADOL HCL 50 MG ORAL TABLET 1 twice a day as needed for pain 201 07/27/28 TRAMADOL HCL 47265698019 Active Baltazar Childers MD Active NAPROXEN 500 MG ORAL TABLET 1 tablet by mouth twice daily NAPROXEN 40852959092 No Longer Active Baltazar Childers MD Active PROAIR HFA 108 (90 Base) MCG/ACT INHALATION AEROSOL SO LUTION 2 puffs four times a day as needed ALBUTEROL SULFATE 29416472857 Active KENDALL Bowie Active DEPO-TESTOSTERONE 200 MG/ML INTRAMUSCULAR SOLUTION as directed TESTOSTERONE CYPIONATE 88252908386 No Longer Active Baltazar Childers MD Active LIPITOR 20 MG ORAL TABLET Take one by mouth daily in evening ATORVASTATIN CALCIUM 74585233143 No Longer Active Baltazar Childers MD Active CRESTOR 10 MG ORAL TABLET 1 by mouth every day ROSUVASTATIN CALCIUM 83168234338 No Longer Active Baltazar Childers MD Active PHENTERMINE HCL 37.5 MG ORAL TABLET Take one by mouth daily PHENTERMINE HCL 44989092998 No Longer Active Baltazar Childers MD Ac tive TIZANIDINE HCL 4 MG ORAL TABLET 1 daily as needed for muscle spa sm TIZANIDINE HCL 95014557159 No Longer Active Dawna Salazar RN Active [id number]-FHGEXOME 50-325-40 MG ORAL TABLET 1 fo ur times a day as needed for heacache [id number] 99836622021 Active Baltazar Childers MD Active SUMATRIPTAN SUCCINATE 100 MG ORAL TABLET 1 tablet by m outh at onset of migraine as needed SUMATRIPTAN SUCCINATE 26001303020 Active KENDALL Restrepo Active LORATADINE 10 MG ORAL TABLET Take one by mouth daily LORATADINE 09554057881 Active KENDALL Juarez Active OMEPRAZOLE 20 MG ORAL CAPSULE DELAYED RELEASE Take one by mouth jostin ly OMEPRAZOLE 09312996815 Active Ann Martinez PA-C Active HYDROXYZINE HCL 25 MG ORAL TABLET Take one by mouth daily HYDROXYZINE HCL 27460266381 Active Baltazar Childers MD Active ALPRAZOLAM 1 MG ORAL TABLET 1 [facility] 95259926385 Active Baltazar Childers MD Active METFORMIN HCL 1000 MG ORAL TABLET Take one by mouth twice daily METFORMIN HCL 70335624364 Active Baltazar Childers MD Active TIZANIDINE HCL 4 MG ORAL TABLET 1 daily as needed for muscle spa sm TIZANIDINE HCL 4 MG ORAL TABLET 901616 TIZANIDINE HCL Inactive PHENTERMINE HCL 37.5 MG ORAL TABLET Take one by mouth daily PHENTERMINE HCL 37.5 MG ORAL TABLET 960030 PHENTERMINE HCL Inac tive CRESTOR 10 MG ORAL TABLET 1 by mouth every day CRESTOR 10 MG ORAL TABLET 920257 ROSUVASTATIN CALCIUM Inactive LIPITOR 20 MG ORAL TABLET Take one by mouth daily in evening LIPITOR 20 MG ORAL TABLET 648699 ATORVASTATIN CALCIUM Inactive DEPO-TESTOSTERONE 200 MG/ML INTRAMUSCULAR SOLUTION as directed DEPO-TESTOSTERONE 200 MG/ML INTRAMUSCULAR SOLUTION 0851924 RUFINO TOSTERONE CYPIONATE Inactive NAPROXEN 500 MG ORAL TABLET 1 tablet by mouth twice daily NAPROXEN 500 MG ORAL TABLET 562603 NAPROXEN Inactive GABAPENTIN 300 MG ORAL CAPSULE 1 po qd x 2 days, then 1 po BID x 2 days, then 1 po TID GABAPENTIN 300 MG ORAL CAPSULE 631441 GABAP ENTIN Inactive ONETOUCH ULTRA BLUE IN VITRO STRIP Test twice a day 07/11/11 ONETOUCH ULTRA BLUE IN VITRO STRIP GLUCOSE BLOOD Inact amie NAPROXEN SODIUM 220 MG ORAL TABLET 1 three times a day as needed NAPROXEN SODIUM 220 MG ORAL TABLET 248910 NAPROXEN SODI UM Inactive TOUJEO SOLOSTAR 300 UNIT/ML SUBCUTANEOUS SOLUTION PEN- INJECTOR 10 units SC daily TOUJEO SOLOSTAR 300 UNIT/ML SUBCUTANEOUS SOLUTION PEN-INJECTOR INSULIN GLARGINE Inactive SUCRALFATE 1 GM ORAL TABLET 1 four times a day to coat the stoma ch SUCRALFATE 1 GM ORAL TABLET 708859 SUCRALFATE Inac tive GABAPENTIN 300 MG ORAL CAPSULE 1 three times a day 201 12/03/26 GABAPENTIN 300 MG ORAL CAPSULE 914719 GABAPENTIN Inactive ZITHROMAX Z-ISAIAS 250 MG ORAL TABLET Take two tablets to day and then 1 tablet daily for 4 days ZITHROMAX Z-ISAIAS 250 MG ORAL TAB LET 543857 AZITHROMYCIN Inactive Immunizations Vaccine Administration Date Value Standard Floyd cription pneumococcal immunization administered Pneumovax 23 [CVX33] pneumococcal polysaccharide vaccine, 23 valent Seasonal influenza vaccine, injectable, containing preservative, for > 3 years old (Afluria, FluLaval, Fluzone, Fluvirin, Fluarix, Agriflu(>= 18 yo)) Fluzone (>3 yrs.) [EAL844] Influenza, seasonal, inject able Seasonal influenza vaccine, injectable, containing preservative, for > 3 years old (Afluria, FluLaval, Fluzone, Fluvirin, Fluarix, Agriflu(>= 18 yo)) Fluzone (>3 yrs.) [QTB319] Influenza, seasonal, inject able Vital Signs Date [...] - Chem istry sodium, serum 139 mmol/L 083-388 2008/06/26 potassium, serum 4.8 mmol/L 3.5-5.2 chloride, serum [...] (L) - Chemistry cholesterol, serum 209 mg/dL 778-543 2003/12/27 triglyceride, serum, fasting 329 mg/dL 30-200 HDL cholesterol, serum 56 mg/dL 32-60 LDL cholesterol, serum 87 mg/dL 0-130 TSH 3.60 m[iU]/mL 0.36-3.74 Lab Report: Thyroid Stimulating Hormone (L) - Chemistry TSH 8.56 m[iU]/mL 0.36-3.74 Office Visit: Meds Check - Toxicology drug screen, urine, qualitative negative Encounters Code Encounter Date Provider Facility CPT-92599 [id number] Vst-Est Level IV 13:49:06 C ELIOT Martinez [email or web address] CPT-85106 Level 4 Est. Patient 17:26:08 [facility] [place] CPT-78374 [id number] Vst-Est Level V 14:26:27 CDT Aneudy Childers MD [facility] CPT-25903 Level 4 Est. Patient 17:05:37 CDT Baltazar Childers MD [facility] CPT-45776 Level 4 Est. Patient 16:21:19 911 [employer] SERVICES DISPATCHER Baltazar Childers MD [facility] CPT-59431 Level 4 Est. Patient 12:25:11 CDT Baltazar Childers MD [facility] CPT-80976 Level 4 Est. Patient 14:22:31 CDT Baltazar Childers MD [facility] CPT-25551 Level 4 Est. Patient 15:44:38 CDT Shonna Parker APRN [facility] CPT-46458 Level 4 Est. Patient 11:34:17 CDT Baltazar Childers MD [facility] CPT-17836 Level 3 Est. Patient 16:40:40 CDT Baltazar Childers MD [facility]-12429 Level 4 Est. Patient 10:41:24 CDT Baltazar Childers MD [facility]-05584 Level 4 Est. Patient 16:01:48 CDT Baltazar Childers MD [facility]-89023 Level 4 Est. Patient 16:54:07 911 EMERGENCY SERVICES DISPATCHER Baltazar Childers MD [facility] CPT-94597 Level 4 Est. Patient 15:42:12 CDT Baltazar Childers MD [facility] CPT-50580 Level 4 Est. Patient 11:29:55 CDT Baltazar Childers MD [facility]-93204 Level 4 Est. Patient 14:15:19 CDT Baltazar Childers MD [facility] CPT-41261 Level 4 Est. Patient 12:20:13 CDT Baltazar Childers MD [facility]-62235 Level 4 Est. Patient 14:52:45 911 EMERGENCY SERVICES DISPATCHER Baltazar Childers MD [facility] CPT-73698 Level 4 Est. Patient 14:18:34 911 EMERGENCY SERVICES DISPATCHER Baltazar Childers MD [facility]-06411 Level 4 Est. Patient 15:18:29 CDT Baltazar Childers MD [facility] CPT-11432 Level 3 Est. Patient 12:45:34 CDT Baltazar Childers MD [facility] CPT-81191 Level 3 Est. Patient 10:10:11 CDT Baltazar Childers MD [facility] CPT-75528 Level 3 Est. Patient 14:07:50 CDT Baltazar Childers MD [facility]-95542 Level 4 Est. Patient 12:26:10 911 EMERGENCY SERVICES DISPATCHER Baltazar Childers MD [facility] CPT-24709 Level 4 Est. Patient 14:45:38 CDT Baltazar Childers MD [facility] CPT-83585 Level 4 New Patient 12:30:48 CDT Baltazar hinton MD [facility] Procedures Code Procedure Name Date Entry Date Standard Desc ription CPT-000 Give Appropriate Flu Vaccine 12:25:14 CDT 2 CPT-25229 First Vx - Ix admin via ID I M or jet injects without counseling by physician 13:08:59 CDT CPT-15031 Fluzone Quadrivalent Intramuscular Suspe nsion 0.5 ML 13:08:59 CDT CPT-52986 Venipuncture Draw Fee 12:04:12 CDT CPT-99058 Lipid - LAB USE ONLY 17:39:15 911 [employer]Y SERVICES DISPATCHER 9 CPT-05517 HGBA1C - LAB USE ONLY 17:39:15 911 EMERGENCY SERVICES DISPATCHER CPT-87387 CMP - LAB USE ONLY 17:39:14 911 EMERGENCY SERVICES DISPATCHER CPT-65383 Venipuncture Draw Fee 17:39:14 911 EMERGENCY SERVICES DISPATCHER CPT-03320 First Vx - Ix admin via ID I M or jet injects without counseling by physician 16:55:17 911 EMERGENCY SERVICES DISPATCHER CPT-68182 Fluzone Quadrivalent Intramuscular Suspe nsion 0.5 ML 16:55:17 911 EMERGENCY SERVICES DISPATCHER CPT-35066 Renal Panel - LAB USE ONLY 17:39:20 CDT 201 10/31/07 CPT-25920 CBC - LAB USE ONLY 17:39:20 CDT CPT-93684 Venipuncture Draw Fee 17:39:20 CDT CPT-68761 Venipuncture Draw Fee 14:33:30 CDT CPT-33795 Renal Panel - LAB USE ONLY 14:33:30 CDT 201 10/31/07 CPT-70290 CBC - LAB USE ONLY 14:33:29 CDT CPT-95475 Venipuncture Draw Fee 14:50:21 911 EM[employer]GENCY SERVICES DISPATCHER CPT-64439 Immunization Single Admin 17:35:35 CDT 2014 CPT-40431 Fluzone Quadrivalent preservative free ( >=3yrs.) 17:35:35 CDT CPT-66647 Venipuncture Draw Fee 12:10:27 911 EMERGENCY SERVICES DISPATCHER CPT-92209 Fluzone Quadrivalent Intramuscular Suspe nsion 0.5 ML 10:49:13 CDT CPT-15703 First Vx Component - Ix admi n via ID IM or jet inj without physician counseling 15:17:19 911 EMERGENCY SERVICES DISPATCHER CPT-74727 Pneumovax 23 15:17:19 911 EMERGENCY SERVICES DISPATCHER CPT-04220 Pneumovax 14:52:45 911 EMERGENCY SERVICES DISPATCHER CPT-96091 Venipuncture Draw Fee 14:06:30 911 EMERGENCY SERVICES DISPATCHER CPT-000 Give Appropriate Flu Vaccine 14:18:34 911 EMERGENCY SERVICES DISPATCHER 2 CPT-58814 Administration single or combination vac cine inc oral 14:46:00 911 EM[employer]GENCY SERVICES DISPATCHER CPT-42211 Influenza split virus > age 3 14:46:00 911 EM[employer]GENCY SERVICES DISPATCHER CPT-OV Office Visit 19:13:16 CDT CPT-95876 Zostavax 18:41:56 CDT CPT-12819 Administration single or combination vac cine inc oral 12:56:39 CDT CPT-32708 Zoster Vaccine (Zostavax) 12:56:39 CDT 2012 CPT-83078 Venipuncture Draw Fee 10:58:57 CDT CPT-27778 Sono pelvis non OB uterus ovaries cervix 17:45:04 CDT CPT-24361 Sono retroperitoneal complete kidneys an d bladder 17:14:36 CDT CPT-OV Office Visit 14:59:38 911 [employer]Y SERVICES DISPATCHER CPT-J1070 Depo Testosterone 100 mg 14:50:13 CDT 03/05 CPT-74846 Abx/Therapy Injection 14:50:13 CDT CPT-21893 Administration single or combination vac cine inc oral 14:34:43 CDT CPT-11736 Influenza split virus > age 3 14:34:43 CDT CPT-J1070 Depo Testosterone 100 mg 17:37:13 CDT 01/11 CPT-70602 Abx/Therapy Injection 17:37:13 CDT CPT-15260 Venipuncture Draw Fee 16:30:13 CDT CPT-96761 Venipuncture Draw Fee 16:29:43 CDT CPT-J1070 Depo Testosterone 100 mg 14:45:38 CDT 01/11
--- OUTSIDE RECORDS SUMMARY | 2019-10-27 11:56 | XMS REPORT | Clinical Summary ---
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 Benign neoplasm of colon PERIPHERAL NEUROPATHY 356.9 [...] ronary atherosclerosis of unspecified type of vessel, [place] or graft OTH NONSPC ABN FINDNG RAD&OTH [...] and one half) tabs once daily METHOCARBAMOL 00723712353 Active KENDALL Juarez Active SYNTHROID 112 MCG ORAL TABLET Take one tablet a day LEVOTHYROXINE SODIUM 76889199279 Active Agata Silveira MA Active TRUE METRIX AIR GLUCOSE METER DEVICE Use as directed BLOOD GLUCOSE MONITORING SUPPL 99733456901 Active Baltazar Childers MD Activ e TRUE METRIX BLOOD GLUCOSE TEST IN VITRO STRIP test blood sug ar BID Dx: E11.65 GLUCOSE BLOOD 64547113210 Active Ct Ledesma MA Active NORTRIPTYLINE HCL 50 MG ORAL CAPSULE 1 twice a day for neuropathy 2 NORTRIPTYLINE HCL 67501962636 Active Ann Martinez PA-C Act amie ASPIRIN 81 MG TBEC Take one (1) tablet by mouth daily ASPIRIN 30011471051 Active Baltazar Childers MD Active GABAPENTIN 300 MG ORAL CAPSULE 1 three times a day 201 12/03/26 GABAPENTIN 24949664365 No Longer Active Baltazar Childers MD Activ e LISINOPRIL 20 MG ORAL TABLET 1 tablet by mouth daily at night 2016 LISINOPRIL 13891508519 Active Ann Martinez PA-C Active ZITHROMAX Z-ISAIAS 250 MG ORAL TABLET Take two tablets to day and then 1 tablet daily for 4 days AZITHROMYCIN 46908831696 No Longer A ctive Baltazar Childers MD Active LANTUS SOLOSTAR 100 UNIT/ML SUBCUTANEOUS SOLUTION PEN- INJECTOR 30 units SC daily INSULIN GLARGINE 02238488067 Active Baltazar Childers MD Active AMLODIPINE BESYLATE 5 MG ORAL TABLET 1 tab daily for HTN AMLODIPINE BESYLATE 32193110357 Active Ann Martinez PA-C Active GLIPIZIDE 10 MG ORAL TABLET take 2 tablets twice daily GLIPIZIDE 69169575101 Active Baltazar Childers MD Active SUCRALFATE 1 GM ORAL TABLET 1 four times a day to coat the stoma ch SUCRALFATE 29060481126 No Longer Active Baltazar Childers MD Active PEN NEEDLES 31G X 6 MM use 1 daily INSULIN PEN NE EDLE 46478743206 Active KENDALL Juarez Active TOUJEO SOLOSTAR 300 UNIT/ML SUBCUTANEOUS SOLUTION PEN- INJECTOR 10 units SC daily INSULIN GLARGINE 01777939852 No Longer Active Rola ARGUETA Active NAPROXEN SODIUM 220 MG ORAL TABLET 1 three times a day as needed NAPROXEN SODIUM 53305275570 No Longer Active Baltazar Childers MD Active ATORVASTATIN CALCIUM 20 MG ORAL TABLET Take 1 tab daily ATORVASTATIN CALCIUM 08961550520 Active Baltazar Childers MD A ctive FUROSEMIDE 40 MG ORAL TABLET Take one by mouth daily FUROSEMIDE 71799516934 Active Baltazar Childers MD Active LISINOPRIL 20 MG ORAL TABLET Take one by mouth daily at bedtime LISINOPRIL 83501525028 No Longer Active Baltazar Childers MD Active ONETOUCH ULTRA BLUE IN VITRO STRIP Test twice a day 07/11/11 GLUCOSE BLOOD 34548618562 No Longer Active Baltazar Childers MD Acti ve TRUEPLUS LANCETS 33G Test twice a day LANCETS 1183267 2337 Active KENDALL Juraez Active TRUEDRAW LANCING DEVICE Test twice a day LANCET DEVICES 12227752181 Active Baltazar Childers MD Active TRUETRACK BLOOD GLUCOSE w/Device KIT Test twice a day BLOOD GLUCOSE MONITORING SUPPL 58585706769 Active Baltazar Childers MD Activ e HYDROCODONE-ACETAMINOPHEN 7.5-325 MG ORAL TABLET Take 1 tab every 6-8 hours PRN HYDROCODONE-ACETAMINOPHEN 69461140628 Active Ann maciel PA-C Active GABAPENTIN 300 MG ORAL CAPSULE 1 po qd x 2 days, then 1 po BID x 2 days, then 1 po TID GABAPENTIN 47652483388 No Longer Active Baltazar Childers MD Active TRAMADOL HCL 50 MG ORAL TABLET 1 twice a day as needed for pain 201 07/27/28 TRAMADOL HCL 79933302358 Active Baltazar Childers MD Active NAPROXEN 500 MG ORAL TABLET 1 tablet by mouth twice daily NAPROXEN 35356586843 No Longer Active Baltazar Childers MD Active PROAIR HFA 108 (90 Base) MCG/ACT INHALATION AEROSOL SO LUTION 2 puffs four times a day as needed ALBUTEROL SULFATE 73204142001 Active KENDALL Bowie Active DEPO-TESTOSTERONE 200 MG/ML INTRAMUSCULAR SOLUTION as directed TESTOSTERONE CYPIONATE 31301599154 No Longer Active Baltazar Childers MD Active LIPITOR 20 MG ORAL TABLET Take one by mouth daily in evening ATORVASTATIN CALCIUM 73683185336 No Longer Active Baltazar Childers MD Active CRESTOR 10 MG ORAL TABLET 1 by mouth every day ROSUVASTATIN CALCIUM 83311336673 No Longer Active Baltazar Childers MD Active PHENTERMINE HCL 37.5 MG ORAL TABLET Take one by mouth daily PHENTERMINE HCL 48780444872 No Longer Active Baltazar Childers MD Ac tive TIZANIDINE HCL 4 MG ORAL TABLET 1 daily as needed for muscle spa sm TIZANIDINE HCL 20523415066 No Longer Active Dawna Salazar RN Active [id number] 50-325-40 MG ORAL TABLET 1 fo ur times a day as needed for heacache [id number] 82047664323 Active Baltazar Childers MD Active SUMATRIPTAN SUCCINATE 100 MG ORAL TABLET 1 tablet by m outh at onset of migraine as needed SUMATRIPTAN SUCCINATE 08357917532 Active KENDALL Restrepo Active LORATADINE 10 MG ORAL TABLET Take one by mouth daily LORATADINE 31764904875 Active KENDALL Juarez Active OMEPRAZOLE 20 MG ORAL CAPSULE DELAYED RELEASE Take one by mouth jostin ly OMEPRAZOLE 94353558716 Active Ann Martinez PA-C Active HYDROXYZINE HCL 25 MG ORAL TABLET Take one by mouth daily HYDROXYZINE HCL 87895599552 Active Baltazar Childers MD Active ALPRAZOLAM 1 MG ORAL TABLET 1 [facility] 97056263199 Active Baltazar Childers MD Active METFORMIN HCL 1000 MG ORAL TABLET Take one by mouth twice daily METFORMIN HCL 07339488206 Active Baltazar Childers MD Active TIZANIDINE HCL 4 MG ORAL TABLET 1 daily as needed for muscle spa sm TIZANIDINE HCL 4 MG ORAL TABLET 259854 TIZANIDINE HCL Inactive PHENTERMINE HCL 37.5 MG ORAL TABLET Take one by mouth daily PHENTERMINE HCL 37.5 MG ORAL TABLET 439418 PHENTERMINE HCL Inac tive CRESTOR 10 MG ORAL TABLET 1 by mouth every day CRESTOR 10 MG ORAL TABLET 341810 ROSUVASTATIN CALCIUM Inactive LIPITOR 20 MG ORAL TABLET Take one by mouth daily in evening LIPITOR 20 MG ORAL TABLET 933418 ATORVASTATIN CALCIUM Inactive DEPO-TESTOSTERONE 200 MG/ML INTRAMUSCULAR SOLUTION as directed DEPO-TESTOSTERONE 200 MG/ML INTRAMUSCULAR SOLUTION 3041394 RUFINO TOSTERONE CYPIONATE Inactive NAPROXEN 500 MG ORAL TABLET 1 tablet by mouth twice daily NAPROXEN 500 MG ORAL TABLET 593883 NAPROXEN Inactive GABAPENTIN 300 MG ORAL CAPSULE 1 po qd x 2 days, then 1 po BID x 2 days, then 1 po TID GABAPENTIN 300 MG ORAL CAPSULE 347334 GABAP ENTIN Inactive ONETOUCH ULTRA BLUE IN VITRO STRIP Test twice a day 07/11/11 ONETOUCH ULTRA BLUE IN VITRO STRIP GLUCOSE BLOOD Inact amie NAPROXEN SODIUM 220 MG ORAL TABLET 1 three times a day as needed NAPROXEN SODIUM 220 MG ORAL TABLET 132543 NAPROXEN SODI UM Inactive TOUJEO SOLOSTAR 300 UNIT/ML SUBCUTANEOUS SOLUTION PEN- INJECTOR 10 units SC daily TOUJEO SOLOSTAR 300 UNIT/ML SUBCUTANEOUS SOLUTION PEN-INJECTOR INSULIN GLARGINE Inactive SUCRALFATE 1 GM ORAL TABLET 1 four times a day to coat the stoma ch SUCRALFATE 1 GM ORAL TABLET 112772 SUCRALFATE Inac tive GABAPENTIN 300 MG ORAL CAPSULE 1 three times a day 201 12/03/26 GABAPENTIN 300 MG ORAL CAPSULE 051851 GABAPENTIN Inactive ZITHROMAX Z-ISAIAS 250 MG ORAL TABLET Take two tablets to day and then 1 tablet daily for 4 days ZITHROMAX Z-ISAIAS 250 MG ORAL TAB LET 093581 AZITHROMYCIN Inactive Immunizations Vaccine Administration Date Value Standard Floyd cription pneumococcal immunization administered Pneumovax 23 [CVX33] pneumococcal polysaccharide vaccine, 23 valent Seasonal influenza vaccine, injectable, containing preservative, for > 3 years old (Afluria, FluLaval, Fluzone, Fluvirin, Fluarix, Agriflu(>= 18 yo)) Fluzone (>3 yrs.) [LIM774] Influenza, seasonal, inject able Seasonal influenza vaccine, injectable, containing preservative, for > 3 years old (Afluria, FluLaval, Fluzone, Fluvirin, Fluarix, Agriflu(>= 18 yo)) Fluzone (>3 yrs.) [XED394] Influenza, seasonal, inject able Vital Signs Date Name Value Unit Range Description blood pressure, diastolic, repeated by physician 72 BP [place] blood pressure, diastolic 72 mm[Hg] BP [place] blood pressure, systolic, repeated by physician 100 [...] weight E&M 233.5 [lb_av] Weight Measure d blood pressure, diastolic 93 mm[Hg] BP [place] blood pressure, systolic 140 mm[Hg] BP sys pulse rate E&M 101 /min Heart rate temperature E&M 97.9 [degF] Body temp erature weight E&M 228.0 [lb_av] Weight Measure d Diagnostic Results Date Name Value Unit Range Description Lab Report: Basic Metabolic Panel - Chem istry sodium, serum 139 mmol/L 301-847 7063/10/03 potassium, serum 4.7 mmol/L 3.5-5.2 chloride, serum 98 mmol/L 98-107 carbon dioxide, venous blood 28.7 mmol/L 21.0-32 .0 blood glucose 218 mg/dL 65-110 calcium, serum 9.8 mg/dL 8.5-10.1 urea nitrogen, blood 19 mg/dL 7-18 creatinine, serum 1.68 mg/dL 0.60-1.30 sodium, serum 139 mmol/L 436-254 2313/06/26 potassium, serum 4.8 mmol/L 3.5-5.2 chloride, serum [...] A1C, blood, as % of total hemoglobin 8.2 % 4.3-6.0 Lab Report: Lipid Panel, Thyroid Stimula ting Hormone (L) - Chemistry cholesterol, serum 209 mg/dL [phone]/12/27 triglyceride, serum, fasting 329 mg/dL 30-200 HDL cholesterol, serum 56 mg/dL 32-60 LDL cholesterol, serum 87 mg/dL 0-130 TSH 3.60 m[iU]/mL 0.36-3.74 Lab Report: Thyroid Stimulating Hormone (L) - Chemistry TSH 8.56 m[iU]/mL 0.36-3.74 Office Visit: Meds Check - Toxicology drug screen, urine, qualitative negative Encounters Code Encounter Date Provider Facility CPT-75143 [id number] Vst-Est Level IV 13:49:06 Bayron Martinez PA-C [facility] CPT-33216 Level 4 Est. Patient 17:26:08 CDT Ann trujillo PA-C [facility]-82170 [id number] Vst-Est Level V 14:26:27 CDT Aneudy Childers MD [facility]-60581 Level 4 Est. Patient 17:05:37 CDT Baltazar Childers MD [facility] CPT-55618 Level 4 Est. Patient 16:21:19 FLAT LOCK MACHINE OPERATOR Baltazar Childers MD [facility]-57571 Level 4 Est. Patient 12:25:11 CDT Baltazar Childers MD [facility] CPT-49476 Level 4 Est. Patient 14:22:31 CDT Baltazar Childers MD [facility]-69698 Level 4 Est. Patient 15:44:38 [facility] Level 4 Est. Patient 11:34:17 CDT Baltazar Childers MD [facility]-09781 Level 3 Est. Patient 16:40:40 CDT Baltazar Childers MD [facility]-27303 Level 4 Est. Patient 10:41:24 CDT Baltazar Childers MD [facility]-11001 Level 4 Est. Patient 16:01:48 CDT Baltazar Childers MD [facility]-61443 Level 4 Est. Patient 16:54:07 FLAT LOCK MACHINE OPERATOR Baltazar Childers MD [facility]-10389 Level 4 Est. Patient 15:42:12 CDT Baltazar Childers MD [facility] CPT-39855 Level 4 Est. Patient 11:29:55 CDT Baltazar Childers MD [facility] CPT-98945 Level 4 Est. Patient 14:15:19 CDT Baltazar Childers MD [facility] CPT-76334 Level 4 Est. Patient 12:20:13 CDT Baltazar Childers MD [facility] CPT-37327 Level 4 Est. Patient 14:52:45 FLAT LOCK MACHINE OPERATOR Baltazar Childers MD [facility] CPT-27721 Level 4 Est. Patient 14:18:34 FLAT LOCK MACHINE OPERATOR Baltazar Childers MD [facility] CPT-63307 Level 4 Est. Patient 15:18:29 CDT Baltazar Childers MD [facility] CPT-98582 Level 3 Est. Patient 12:45:34 CDT Baltazar Childers MD [facility] CPT-22146 Level 3 Est. Patient 10:10:11 CDT Baltazar Childers MD [facility] CPT-86730 Level 3 Est. Patient 14:07:50 CDT Baltazar Childers MD [facility] CPT-61571 Level 4 Est. Patient 12:26:10 FLAT LOCK MACHINE OPERATOR Baltazar Childers MD [facility] CPT-66942 Level 4 Est. Patient 14:45:38 CDT Baltazar Childers MD [facility] CPT-64323 Level 4 New Patient 12:30:48 CDT Baltazar hinton MD [facility] Procedures Code Procedure Name Date Entry Date Standard Desc ription CPT-000 Give Appropriate Flu Vaccine 12:25:14 CDT 2 CPT-31291 First Vx - Ix admin via ID I M or jet injects without counseling by physician 13:08:59 CDT CPT-19625 Fluzone Quadrivalent Intramuscular Suspe nsion 0.5 ML 13:08:59 CDT CPT-66924 Venipuncture Draw Fee 12:04:12 CDT CPT-40013 Lipid - LAB USE ONLY 17:39:15 FLAT LOCK MACHINE OPERATOR 9 CPT-81056 HGBA1C - LAB USE ONLY 17:39:15 FLAT LOCK MACHINE OPERATOR CPT-14070 CMP - LAB USE ONLY 17:39:14 FLAT LOCK MACHINE OPERATOR CPT-68772 Venipuncture Draw Fee 17:39:14 FLAT LOCK MACHINE OPERATOR CPT-31428 First Vx - Ix admin via ID I M or jet injects without counseling by physician 16:55:17 FLAT LOCK MACHINE OPERATOR CPT-51555 Fluzone Quadrivalent Intramuscular Suspe nsion 0.5 ML 16:55:17 FLAT LOCK MACHINE OPERATOR CPT-73791 Renal Panel - LAB USE ONLY 17:39:20 CDT 201 10/31/07 CPT-65073 CBC - LAB USE ONLY 17:39:20 CDT CPT-87657 Venipuncture Draw Fee 17:39:20 CDT CPT-93533 Venipuncture Draw Fee 14:33:30 CDT CPT-44028 Renal Panel - LAB USE ONLY 14:33:30 CDT 201 10/31/07 CPT-30507 CBC - LAB USE ONLY 14:33:29 CDT CPT-44129 Venipuncture Draw Fee 14:50:21 FLAT LOCK MACHINE OPERATOR CPT-13738 Immunization Single Admin 17:35:35 CDT 2014 CPT-89610 Fluzone Quadrivalent preservative free ( >=3yrs.) 17:35:35 CDT CPT-76368 Venipuncture Draw Fee 12:10:27 FLAT LOCK MACHINE OPERATOR CPT-65810 Fluzone Quadrivalent Intramuscular Suspe nsion 0.5 ML 10:49:13 CDT CPT-42781 First Vx Component - Ix admi n via ID IM or jet inj without physician counseling 15:17:19 FLAT LOCK MACHINE OPERATOR CPT-14732 Pneumovax 23 15:17:19 FLAT LOCK MACHINE OPERATOR CPT-20553 Pneumovax 14:52:45 FLAT LOCK MACHINE OPERATOR CPT-66862 Venipuncture Draw Fee 14:06:30 FLAT LOCK MACHINE OPERATOR CPT-000 Give Appropriate Flu Vaccine 14:18:34 FLAT LOCK MACHINE OPERATOR 2 CPT-58731 Administration single or combination vac cine inc oral 14:46:00 FLAT LOCK MACHINE OPERATOR CPT-48139 Influenza split virus > age 3 14:46:00 FLAT LOCK MACHINE OPERATOR CPT-OV Office Visit 19:13:16 CDT CPT-49971 Zostavax 18:41:56 CDT CPT-06062 Administration single or combination vac cine inc oral 12:56:39 CDT CPT-94837 Zoster Vaccine (Zostavax) 12:56:39 CDT 2012 CPT-47097 Venipuncture Draw Fee 10:58:57 CDT CPT-65207 Sono pelvis non OB uterus ovaries cervix 17:45:04 CDT CPT-88364 Sono retroperitoneal complete kidneys an d bladder 17:14:36 CDT CPT-OV Office Visit 14:59:38 FLAT LOCK MACHINE OPERATOR CPT-J1070 Depo Testosterone 100 mg 14:50:13 CDT 03/05 CPT-46860 Abx/Therapy Injection 14:50:13 CDT CPT-94822 Administration single or combination vac cine inc oral 14:34:43 CDT CPT-31842 Influenza split virus > age 3 14:34:43 CDT CPT-J1070 Depo Testosterone 100 mg 17:37:13 CDT 01/11 CPT-01782 Abx/Therapy Injection 17:37:13 CDT CPT-26147 Venipuncture Draw Fee 16:30:13 CDT CPT-14994 Venipuncture Draw Fee 16:29:43 CDT CPT-J1070 Depo Testosterone 100 mg 14:45:38 CDT 01/11
--- OUTSIDE RECORDS SUMMARY | 2019-10-27 11:56 | XMS REPORT | Clinical Summary ---
Author Author Admin, Elba Lance Michelle [facility] Address Unknown Phone Unavailable Allergies, Adverse Reactions, [...] ronary atherosclerosis of unspecified type of vessel, [place] or graft OTH NONSPC ABN FINDNG RAD&OTH [...] and one half) tabs once daily METHOCARBAMOL 89063545842 Active KENDALL Juarez Active SYNTHROID 112 MCG ORAL TABLET Take one tablet a day LEVOTHYROXINE SODIUM 27238094841 Active Agata Silveira MA Active TRUE METRIX AIR GLUCOSE METER DEVICE Use as directed BLOOD GLUCOSE MONITORING SUPPL 39634337864 Active Baltazar Childers MD Activ e TRUE METRIX BLOOD GLUCOSE TEST IN VITRO STRIP test blood sug ar BID Dx: E11.65 GLUCOSE BLOOD 64891372389 Active Ct Ledesma MA Active NORTRIPTYLINE HCL 50 MG ORAL CAPSULE 1 twice a day for neuropathy 2 NORTRIPTYLINE HCL 72391971617 Active Ann Martinez PA-C Act amie ASPIRIN 81 MG TBEC Take one (1) tablet by mouth daily ASPIRIN 23212612917 Active Baltazar Childers MD Active GABAPENTIN 300 MG ORAL CAPSULE 1 three times a day 201 12/03/26 GABAPENTIN 16989311879 No Longer Active Baltazar Childers MD Activ e LISINOPRIL 20 MG ORAL TABLET 1 tablet by mouth daily at night 2016 LISINOPRIL 97748665719 Active Ann Martinez PA-C Active ZITHROMAX Z-ISAIAS 250 MG ORAL TABLET Take two tablets to day and then 1 tablet daily for 4 days AZITHROMYCIN 27774707150 No Longer A ctive Baltazar Childers MD Active LANTUS SOLOSTAR 100 UNIT/ML SUBCUTANEOUS SOLUTION PEN- INJECTOR 30 units SC daily INSULIN GLARGINE 94939114046 Active Baltazar Childers MD Active AMLODIPINE BESYLATE 5 MG ORAL TABLET 1 tab daily for HTN AMLODIPINE BESYLATE 14998059484 Active Ann Martinez PA-C Active GLIPIZIDE 10 MG ORAL TABLET take 2 tablets twice daily GLIPIZIDE 81523919060 Active KENDALL Juarez Active SUCRALFATE 1 GM ORAL TABLET 1 four times a day to coat the stoma ch SUCRALFATE 75099879052 No Longer Active Baltazar Childers MD Active PEN NEEDLES 31G X 6 MM use 1 daily INSULIN PEN NE EDLE 38998033821 Active KENDALL Juarez Active TOUJEO SOLOSTAR 300 UNIT/ML SUBCUTANEOUS SOLUTION PEN- INJECTOR 10 units SC daily INSULIN GLARGINE 15467366111 No Longer Active Rola ARGUETA Active NAPROXEN SODIUM 220 MG ORAL TABLET 1 three times a day as needed NAPROXEN SODIUM 49343415491 No Longer Active Baltazar Childers MD Active ATORVASTATIN CALCIUM 20 MG ORAL TABLET Take 1 tab daily ATORVASTATIN CALCIUM 02242662928 Active Baltazar Childers MD A ctive FUROSEMIDE 40 MG ORAL TABLET Take one by mouth daily FUROSEMIDE 05043724394 Active Baltazar Childers MD Active LISINOPRIL 20 MG ORAL TABLET Take one by mouth daily at bedtime LISINOPRIL 72452470697 No Longer Active Baltazar Childers MD Active ONETOUCH ULTRA BLUE IN VITRO STRIP Test twice a day 07/11/11 GLUCOSE BLOOD 04108647736 No Longer Active Baltazar Childers MD Acti ve TRUEPLUS LANCETS 33G Test twice a day LANCETS 8010156 3499 Active KENDALL Juarez Active TRUEDRAW LANCING DEVICE Test twice a day LANCET DEVICES 75178446777 Active Baltazar Childers MD Active TRUETRACK BLOOD GLUCOSE w/Device KIT Test twice a day BLOOD GLUCOSE MONITORING SUPPL 23529750364 Active Baltazar Childers MD Activ e HYDROCODONE-ACETAMINOPHEN 7.5-325 MG ORAL TABLET Take 1 tab every 6-8 hours PRN HYDROCODONE-ACETAMINOPHEN 22278512474 Active Ann maciel PA-C Active GABAPENTIN 300 MG ORAL CAPSULE 1 po qd x 2 days, then 1 po BID x 2 days, then 1 po TID GABAPENTIN 51814264803 No Longer Active Baltazar Childers MD Active TRAMADOL HCL 50 MG ORAL TABLET 1 twice a day as needed for pain 201 07/27/28 TRAMADOL HCL 25215863856 Active Baltazar Childers MD Active NAPROXEN 500 MG ORAL TABLET 1 tablet by mouth twice daily NAPROXEN 94917770410 No Longer Active Baltazar Childers MD Active PROAIR HFA 108 (90 Base) MCG/ACT INHALATION AEROSOL SO LUTION 2 puffs four times a day as needed ALBUTEROL SULFATE 41817503141 Active KENDALL Bowie Active DEPO-TESTOSTERONE 200 MG/ML INTRAMUSCULAR SOLUTION as directed TESTOSTERONE CYPIONATE 50740244871 No Longer Active Baltazar Childers MD Active LIPITOR 20 MG ORAL TABLET Take one by mouth daily in evening ATORVASTATIN CALCIUM 35795945188 No Longer Active Baltazar Childers MD Active CRESTOR 10 MG ORAL TABLET 1 by mouth every day ROSUVASTATIN CALCIUM 65016235107 No Longer Active Baltazar Childers MD Active PHENTERMINE HCL 37.5 MG ORAL TABLET Take one by mouth daily PHENTERMINE HCL 54728235645 No Longer Active Baltazar Childers MD Ac tive TIZANIDINE HCL 4 MG ORAL TABLET 1 daily as needed for muscle spa sm TIZANIDINE HCL 11440906881 No Longer Active Dawna Salazar RN Active [id number] 50-325-40 MG ORAL TABLET 1 fo ur times a day as needed for heacache HTPRJEKZIN-[id number] 93222600987 Active Baltazar Childers MD Active SUMATRIPTAN SUCCINATE 100 MG ORAL TABLET 1 tablet by m outh at onset of migraine as needed SUMATRIPTAN SUCCINATE 24012673026 Active KENDALL Restrepo Active LORATADINE 10 MG ORAL TABLET Take one by mouth daily LORATADINE 12867978411 Active KENDALL Juarez Active OMEPRAZOLE 20 MG ORAL CAPSULE DELAYED RELEASE Take one by mouth jostin ly OMEPRAZOLE 56633004677 Active Ann Martinez PA-C Active HYDROXYZINE HCL 25 MG ORAL TABLET Take one by mouth daily HYDROXYZINE HCL 10068110502 Active Baltazar Childers MD Active ALPRAZOLAM 1 MG ORAL TABLET 1 [facility] 05296353182 Active Baltazar Childers MD Active METFORMIN HCL 1000 MG ORAL TABLET Take one by mouth twice daily METFORMIN HCL 87763428825 Active Baltazar Childers MD Active TIZANIDINE HCL 4 MG ORAL TABLET 1 daily as needed for muscle spa sm TIZANIDINE HCL 4 MG ORAL TABLET 738071 TIZANIDINE HCL Inactive PHENTERMINE HCL 37.5 MG ORAL TABLET Take one by mouth daily PHENTERMINE HCL 37.5 MG ORAL TABLET 958972 PHENTERMINE HCL Inac tive CRESTOR 10 MG ORAL TABLET 1 by mouth every day CRESTOR 10 MG ORAL TABLET 682019 ROSUVASTATIN CALCIUM Inactive LIPITOR 20 MG ORAL TABLET Take one by mouth daily in evening LIPITOR 20 MG ORAL TABLET 268163 ATORVASTATIN CALCIUM Inactive DEPO-TESTOSTERONE 200 MG/ML INTRAMUSCULAR SOLUTION as directed DEPO-TESTOSTERONE 200 MG/ML INTRAMUSCULAR SOLUTION 9919284 RUFINO TOSTERONE CYPIONATE Inactive NAPROXEN 500 MG ORAL TABLET 1 tablet by mouth twice daily NAPROXEN 500 MG ORAL TABLET 472935 NAPROXEN Inactive GABAPENTIN 300 MG ORAL CAPSULE 1 po qd x 2 days, then 1 po BID x 2 days, then 1 po TID GABAPENTIN 300 MG ORAL CAPSULE 772110 GABAP ENTIN Inactive ONETOUCH ULTRA BLUE IN VITRO STRIP Test twice a day 07/11/11 ONETOUCH ULTRA BLUE IN VITRO STRIP GLUCOSE BLOOD Inact amie NAPROXEN SODIUM 220 MG ORAL TABLET 1 three times a day as needed NAPROXEN SODIUM 220 MG ORAL TABLET 480556 NAPROXEN SODI UM Inactive TOUJEO SOLOSTAR 300 UNIT/ML SUBCUTANEOUS SOLUTION PEN- INJECTOR 10 units SC daily TOUJEO SOLOSTAR 300 UNIT/ML SUBCUTANEOUS SOLUTION PEN-INJECTOR INSULIN GLARGINE Inactive SUCRALFATE 1 GM ORAL TABLET 1 four times a day to coat the stoma ch SUCRALFATE 1 GM ORAL TABLET 311682 SUCRALFATE Inac tive GABAPENTIN 300 MG ORAL CAPSULE 1 three times a day 201 12/03/26 GABAPENTIN 300 MG ORAL CAPSULE 672458 GABAPENTIN Inactive ZITHROMAX Z-ISAIAS 250 MG ORAL TABLET Take two tablets to day and then 1 tablet daily for 4 days ZITHROMAX Z-ISAIAS 250 MG ORAL TAB LET 771186 AZITHROMYCIN Inactive Immunizations Vaccine Administration Date Value Standard Floyd cription pneumococcal immunization administered Pneumovax 23 [CVX33] pneumococcal polysaccharide vaccine, 23 valent Seasonal influenza vaccine, injectable, containing preservative, for > 3 years old (Afluria, FluLaval, Fluzone, Fluvirin, Fluarix, Agriflu(>= 18 yo)) Fluzone (>3 yrs.) [[id number]] Influenza, seasonal, inject able Seasonal influenza vaccine, injectable, containing preservative, for > 3 years old (Afluria, FluLaval, Fluzone, Fluvirin, Fluarix, Agriflu(>= 18 yo)) Fluzone (>3 yrs.) [OAC554] Influenza, seasonal, inject able Vital Signs Date [...] - Chem istry sodium, serum 139 mmol/L 307-947 0634/06/26 potassium, serum 4.8 mmol/L 3.5-5.2 chloride, serum [...] (L) - Chemistry cholesterol, serum 209 mg/dL 556-956 3414/12/27 triglyceride, serum, fasting 329 mg/dL 30-200 HDL cholesterol, serum 56 mg/dL 32-60 LDL cholesterol, serum 87 mg/dL 0-130 TSH 3.60 m[iU]/mL 0.36-3.74 Lab Report: Thyroid Stimulating Hormone (L) - Chemistry TSH 8.56 m[iU]/mL 0.36-3.74 Office Visit: Meds Check - Toxicology drug screen, urine, qualitative negative Encounters Code Encounter Date Provider Facility CPT-52843 [id number] Vst-Est Level IV 13:49:06 C ELIOT Martinez [facility] CPT-36336 Level 4 Est. Patient 17:26[facility] [id number] Vst-Est Level V 14:26:27 CDT Aneudy Childers MD [facility] CPT-93054 Level 4 Est. Patient 17:05:37 CDT Baltazar Childers MD [facility] CPT-49029 Level 4 Est. Patient 16:21:19 [employer]ITION SERVICES SUPERVISOR Baltazar Childers MD [facility] CPT-44877 Level 4 Est. Patient 12:25:11 CDT Baltazar Childers MD [facility] CPT-46331 Level 4 Est. Patient 14:22:31 CDT Baltazar Childers MD [facility] CPT-38710 Level 4 Est. Patient 15:44:38 CDT Shonna Parker APRN [facility] CPT-75661 Level 4 Est. Patient 11:34:17 CDT Baltazar Childers MD [facility] CPT-50886 Level 3 Est. Patient 16:40:40 CDT Baltazar Childers MD [facility]-51713 Level 4 Est. Patient 10:41:24 CDT Baltazar Childers MD [facility]-59719 Level 4 Est. Patient 16:01:48 CDT Baltazar Childers MD [facility]-09720 Level 4 Est. 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-47000 Level 4 Est. Patient 15:42:12 CDT Baltazar Childers MD [facility] CPT-31526 Level 4 Est. Patient 11:29:55 CDT Baltazar Childers MD [facility]-98684 Level 4 Est. Patient 14:15:19 CDT Baltazar Childers MD [facility]-86912 Level 4 Est. Patient 12:20:13 CDT Baltazar Childers MD [facility]-71220 Level 4 Est. Patient 14:52:45 FOOD AND NUTRITION SERVICES SUPERVISOR Baltazar Childers MD [facility] CPT-39398 Level 4 Est. Patient 14:18:34 FOOD AND NUTRITION SERVICES SUPERVISOR Baltazar Childers MD [facility]-83304 Level 4 Est. Patient 15:18:29 CDT Baltazar Childers MD [facility]-15483 Level 3 Est. Patient 12:45:34 CDT Baltazar Childers MD [facility]-24394 Level 3 Est. Patient 10:10:11 CDT Baltazar Childers MD [facility] CPT-55848 Level 3 Est. Patient 14:07:50 CDT Baltazar Childers MD [facility]-18123 Level 4 Est. Patient 12:26:10 FOOD AND NUTRITION SERVICES SUPERVISOR Baltazar Childers MD [facility]-21452 Level 4 Est. Patient 14:45:38 CDT Baltazar Childers MD [facility] CPT-06032 Level 4 New Patient 12:30:48 CDT Baltazar hinton MD [facility] Procedures Code Procedure Name Date Entry Date Standard Desc ription CPT-000 Give Appropriate Flu Vaccine 12:25:14 CDT 2 CPT-15816 First Vx - Ix admin via ID I M or jet injects without counseling by physician 13:08:59 CDT CPT-70542 Fluzone Quadrivalent Intramuscular Suspe nsion 0.5 ML 13:08:59 CDT CPT-12382 Venipuncture Draw Fee 12:04:12 CDT CPT-75773 Lipid - LAB USE ONLY 17:39:15 [employer] AND [employer]UTRITION SERVICES SUPERVISOR 9 CPT-90788 HGBA1C - LAB USE ONLY 17:39:15 FO[employer] AND NUTRITION SERVICES SUPERVISOR CPT-72043 CMP - LAB USE ONLY 17:39:14 FO[employer] AND NUTRITION SERVICES SUPERVISOR CPT-80193 Venipuncture Draw Fee 17:39:14 FO[employer] AND NUTRITION SERVICES SUPERVISOR CPT-04198 First Vx - Ix admin via ID I M or jet injects without counseling by physician 16:55:17 FO[employer] AND NUTRITION SERVICES SUPERVISOR CPT-18829 Fluzone Quadrivalent Intramuscular Suspe nsion 0.5 ML 16:55:17 FO[employer] AND NUTRITION SERVICES SUPERVISOR CPT-09540 Renal Panel - LAB USE ONLY 17:39:20 CDT 201 10/31/07 CPT-99067 CBC - LAB USE ONLY 17:39:20 CDT CPT-52786 Venipuncture Draw Fee 17:39:20 CDT CPT-07950 Venipuncture Draw Fee 14:33:30 CDT CPT-25121 Renal Panel - LAB USE ONLY 14:33:30 CDT 201 10/31/07 CPT-00971 CBC - LAB USE ONLY 14:33:29 CDT CPT-74691 Venipuncture Draw Fee 14:50:21 FO[employer] AND NUTRITION SERVICES SUPERVISOR CPT-28889 Immunization Single Admin 17:35:35 CDT 2014 CPT-51284 Fluzone Quadrivalent preservative free ( >=3yrs.) 17:35:35 CDT CPT-98282 Venipuncture Draw Fee 12:10:27 FO[employer] AND NUTRITION SERVICES SUPERVISOR CPT-33741 Fluzone Quadrivalent Intramuscular Suspe nsion 0.5 ML 10:49:13 CDT CPT-26250 First Vx Component - Ix admi n via ID IM or jet inj without physician counseling 15:17:19 FO[employer] AND NUTRITION SERVICES SUPERVISOR CPT-65581 Pneumovax 23 15:17:19 FOOD AND NUTRITION SERVICES SUPERVISOR CPT-47610 Pneumovax 14:52:45 FO[employer] AND NUTRITION SERVICES SUPERVISOR CPT-56971 Venipuncture Draw Fee 14:06:30 FO[employer] AND NUTRITION SERVICES SUPERVISOR CPT-000 Give Appropriate Flu Vaccine 14:18:34 FOOD AND NUTRITION SERVICES SUPERVISOR 2 CPT-60700 Administration single or combination vac cine inc oral 14:46:00 FO[employer] AND NUTRITION SERVICES SUPERVISOR CPT-82996 Influenza split virus > age 3 14:46:00 FO[employer] AND NUTRITION SERVICES SUPERVISOR CPT-OV Office Visit 19:13:16 CDT CPT-56410 Zostavax 18:41:56 CDT CPT-51619 Administration single or combination vac cine inc oral 12:56:39 CDT CPT-13800 Zoster Vaccine (Zostavax) 12:56:39 CDT 2012 CPT-72265 Venipuncture Draw Fee 10:58:57 CDT CPT-18768 Sono pelvis non OB uterus ovaries cervix 17:45:04 CDT CPT-33303 Sono retroperitoneal complete kidneys an d bladder 17:14:36 CDT CPT-OV Office Visit 14:59:38 [employer] AND NUTRITION SERVICES SUPERVISOR CPT-J1070 Depo Testosterone 100 mg 14:50:13 CDT 03/05 CPT-72747 Abx/Therapy Injection 14:50:13 CDT CPT-97808 Administration single or combination vac cine inc oral 14:34:43 CDT CPT-32398 Influenza split virus > age 3 14:34:43 CDT CPT-J1070 Depo Testosterone 100 mg 17:37:13 CDT 01/11 CPT-56263 Abx/Therapy Injection 17:37:13 CDT CPT-17023 Venipuncture Draw Fee 16:30:13 CDT CPT-88804 Venipuncture Draw Fee 16:29:43 CDT CPT-J1070 Depo Testosterone 100 mg 14:45:38 CDT 01/11
--- OUTSIDE RECORDS SUMMARY | 2019-10-27 11:57 | XMS REPORT | Clinical Summary ---
Author Author Admin, Elba Lance Michelle [facility] Address Unknown Phone Unavailable Allergies, [...] ronary atherosclerosis of unspecified type of vessel, [place] or graft OTH NONSPC ABN FINDNG RAD&OTH [...] Childers MD Heartburn Hypothyroidism 244.9 Active Carina Tukcer LPN Unspecified hypothyroidism Pharyngitis 462 Resolved Baltazar Childers MD Acute pharyngitis BMI 37-37.9 adult V85.37 Active Baltazar Childers MD Body Mass Index 37.0-37.9, adult Pharyngitis ICD-462 Inactive Baltazar Childers MD COLON POLYPS ICD-211.3 Inactive Lolis William APR N Medication List Medication Instructions Start Date Stop Date Generic Name NDC Status Provider Patient Instruction ROBAXIN 500 MG ORAL TABLET Take 1.5 (one and one half) tabs once daily METHOCARBAMOL 24796725985 Active KENDALL Juarez Active SYNTHROID 112 MCG ORAL TABLET Take one tablet a day LEVOTHYROXINE SODIUM 66621698942 Active Agata Silveira MA Active TRUE METRIX AIR GLUCOSE METER DEVICE Use as directed BLOOD GLUCOSE MONITORING SUPPL 09951501229 Active Baltazar Childers MD Activ e TRUE METRIX BLOOD GLUCOSE TEST IN VITRO STRIP test blood sug ar BID Dx: E11.65 GLUCOSE BLOOD 49162608196 Active Ct Ledesma MA Active NORTRIPTYLINE HCL 50 MG ORAL CAPSULE 1 twice a day for neuropathy 2 NORTRIPTYLINE HCL 04493775121 Active Ann Martinez PA-C Act amie ASPIRIN 81 MG TBEC Take one (1) tablet by mouth daily ASPIRIN 66084386286 Active Baltazar Childers MD Active GABAPENTIN 300 MG ORAL CAPSULE 1 three times a day 201 12/03/26 GABAPENTIN 48639789733 No Longer Active Baltazar Childers MD Activ e LISINOPRIL 20 MG ORAL TABLET 1 tablet by mouth daily at night 2016 LISINOPRIL 50348655751 Active Ann Martinez PA-C Active ZITHROMAX Z-ISAIAS 250 MG ORAL TABLET Take two tablets to day and then 1 tablet daily for 4 days AZITHROMYCIN 30967928734 No Longer A ctive Baltazar Childers MD Active LANTUS SOLOSTAR 100 UNIT/ML SUBCUTANEOUS SOLUTION PEN- INJECTOR 30 units SC daily INSULIN GLARGINE 54466320200 Active Baltazar Childers MD Active AMLODIPINE BESYLATE 5 MG ORAL TABLET 1 tab daily for HTN AMLODIPINE BESYLATE 06659598551 Active Ann Martinez PA-C Active GLIPIZIDE 10 MG ORAL TABLET take 2 tablets twice daily GLIPIZIDE 81128193631 Active Baltazar Childers MD Active SUCRALFATE 1 GM ORAL TABLET 1 four times a day to coat the stoma ch SUCRALFATE 27401768300 No Longer Active Baltazar Childers MD Active PEN NEEDLES 31G X 6 MM use 1 daily INSULIN PEN NE EDLE 40808760771 Active KENDALL Juarez Active TOUJEO SOLOSTAR 300 UNIT/ML SUBCUTANEOUS SOLUTION PEN- INJECTOR 10 units SC daily INSULIN GLARGINE 53945534257 No Longer Active Rola ARGUETA Active NAPROXEN SODIUM 220 MG ORAL TABLET 1 three times a day as needed NAPROXEN SODIUM 70122884590 No Longer Active Baltazar Childers MD Active ATORVASTATIN CALCIUM 20 MG ORAL TABLET Take 1 tab daily ATORVASTATIN CALCIUM 46551498709 Active Baltazar Childers MD A ctive FUROSEMIDE 40 MG ORAL TABLET Take one by mouth daily FUROSEMIDE 79945869430 Active Baltazar Childers MD Active LISINOPRIL 20 MG ORAL TABLET Take one by mouth daily at bedtime LISINOPRIL 38701201940 No Longer Active Baltazar Childers MD Active ONETOUCH ULTRA BLUE IN VITRO STRIP Test twice a day 07/11/11 GLUCOSE BLOOD 56282897083 No Longer Active Baltazar Childers MD Acti ve TRUEPLUS LANCETS 33G Test twice a day LANCETS 0210855 0706 Active KENDALL Juarez Active TRUEDRAW LANCING DEVICE Test twice a day LANCET DEVICES 13689816164 Active Baltazar Childers MD Active TRUETRACK BLOOD GLUCOSE w/Device KIT Test twice a day BLOOD GLUCOSE MONITORING SUPPL 62333103637 Active Baltazar Childers MD Activ e HYDROCODONE-ACETAMINOPHEN 7.5-325 MG ORAL TABLET Take 1 tab every 6-8 hours PRN HYDROCODONE-ACETAMINOPHEN 59172265227 Active Ann maciel PA-C Active GABAPENTIN 300 MG ORAL CAPSULE 1 po qd x 2 days, then 1 po BID x 2 days, then 1 po TID GABAPENTIN 47521835558 No Longer Active Baltazar Childers MD Active TRAMADOL HCL 50 MG ORAL TABLET 1 twice a day as needed for pain 201 07/27/28 TRAMADOL HCL 65301877076 Active Baltazar Childers MD Active NAPROXEN 500 MG ORAL TABLET 1 tablet by mouth twice daily NAPROXEN 67979241964 No Longer Active Baltazar Childers MD Active PROAIR HFA 108 (90 Base) MCG/ACT INHALATION AEROSOL SO LUTION 2 puffs four times a day as needed ALBUTEROL SULFATE 47069846606 Active R gilberto Childers MD Active DEPO-TESTOSTERONE 200 MG/ML INTRAMUSCULAR SOLUTION as directed TESTOSTERONE CYPIONATE 00360110821 No Longer Active Baltazar Childers MD Active LIPITOR 20 MG ORAL TABLET Take one by mouth daily in evening ATORVASTATIN CALCIUM 74663102211 No Longer Active Baltazar Childers MD Active CRESTOR 10 MG ORAL TABLET 1 by mouth every day ROSUVASTATIN CALCIUM 16993271092 No Longer Active Baltazar Childers MD Active PHENTERMINE HCL 37.5 MG ORAL TABLET Take one by mouth daily PHENTERMINE HCL 33641728679 No Longer Active Baltazar Childers MD Ac tive TIZANIDINE HCL 4 MG ORAL TABLET 1 daily as needed for muscle spa sm TIZANIDINE HCL 53347437684 No Longer Active Dawna Salazar RN Active [id number] 50-325-40 MG ORAL TABLET 1 fo ur times a day as needed for heacache [id number] 51291956255 Active Baltazar Childers MD Active SUMATRIPTAN SUCCINATE 100 MG ORAL TABLET 1 tablet by m outh at onset of migraine as needed SUMATRIPTAN SUCCINATE 25654719598 Active KENDALL Restrepo Active LORATADINE 10 MG ORAL TABLET Take one by mouth daily LORATADINE 39879419728 Active KENDALL Juarez Active OMEPRAZOLE 20 MG ORAL CAPSULE DELAYED RELEASE Take one by mouth jostin ly OMEPRAZOLE 72831899477 Active Ann Martinez PA-C Active HYDROXYZINE HCL 25 MG ORAL TABLET Take one by mouth daily HYDROXYZINE HCL 87930501247 Active Baltazar Childers MD Active ALPRAZOLAM 1 MG ORAL TABLET 1 [facility] ALPRAZOLAM 66444206670 Active Baltazar Childers MD Active METFORMIN HCL 1000 MG ORAL TABLET Take one by mouth twice daily METFORMIN HCL 41327822038 Active Baltazar Childers MD Active TIZANIDINE HCL 4 MG ORAL TABLET 1 daily as needed for muscle spa sm TIZANIDINE HCL 4 MG ORAL TABLET 755093 TIZANIDINE HCL Inactive PHENTERMINE HCL 37.5 MG ORAL TABLET Take one by mouth daily PHENTERMINE HCL 37.5 MG ORAL TABLET 093374 PHENTERMINE HCL Inac tive CRESTOR 10 MG ORAL TABLET 1 by mouth every day CRESTOR 10 MG ORAL TABLET 109597 ROSUVASTATIN CALCIUM Inactive LIPITOR 20 MG ORAL TABLET Take one by mouth daily in evening LIPITOR 20 MG ORAL TABLET 227672 ATORVASTATIN CALCIUM Inactive DEPO-TESTOSTERONE 200 MG/ML INTRAMUSCULAR SOLUTION as directed DEPO-TESTOSTERONE 200 MG/ML INTRAMUSCULAR SOLUTION 3718115 RUFINO TOSTERONE CYPIONATE Inactive NAPROXEN 500 MG ORAL TABLET 1 tablet by mouth twice daily NAPROXEN 500 MG ORAL TABLET 499256 NAPROXEN Inactive GABAPENTIN 300 MG ORAL CAPSULE 1 po qd x 2 days, then 1 po BID x 2 days, then 1 po TID GABAPENTIN 300 MG ORAL CAPSULE 359525 GABAP ENTIN Inactive ONETOUCH ULTRA BLUE IN VITRO STRIP Test twice a day 07/11/11 ONETOUCH ULTRA BLUE IN VITRO STRIP GLUCOSE BLOOD Inact amie NAPROXEN SODIUM 220 MG ORAL TABLET 1 three times a day as needed NAPROXEN SODIUM 220 MG ORAL TABLET 618750 NAPROXEN SODI UM Inactive TOUJEO SOLOSTAR 300 UNIT/ML SUBCUTANEOUS SOLUTION PEN- INJECTOR 10 units SC daily TOUJEO SOLOSTAR 300 UNIT/ML SUBCUTANEOUS SOLUTION PEN-INJECTOR INSULIN GLARGINE Inactive SUCRALFATE 1 GM ORAL TABLET 1 four times a day to coat the stoma ch SUCRALFATE 1 GM ORAL TABLET 396656 SUCRALFATE Inac tive GABAPENTIN 300 MG ORAL CAPSULE 1 three times a day 201 12/03/26 GABAPENTIN 300 MG ORAL CAPSULE 600362 GABAPENTIN Inactive ZITHROMAX Z-ISAIAS 250 MG ORAL TABLET Take two tablets to day and then 1 tablet daily for 4 days ZITHROMAX Z-ISAIAS 250 MG ORAL TAB LET 989789 AZITHROMYCIN Inactive Immunizations Vaccine Administration Date Value Standard Floyd cription pneumococcal immunization administered Pneumovax 23 [CVX33] pneumococcal polysaccharide vaccine, 23 valent Seasonal influenza vaccine, injectable, containing preservative, for > 3 years old (Afluria, FluLaval, Fluzone, Fluvirin, Fluarix, Agriflu(>= 18 yo)) Fluzone (>3 yrs.) [[id number]] Influenza, seasonal, inject able Seasonal influenza vaccine, injectable, containing preservative, for > 3 years old (Afluria, FluLaval, Fluzone, Fluvirin, Fluarix, Agriflu(>= 18 yo)) Fluzone (>3 yrs.) [ABK673] Influenza, seasonal, inject able Vital Signs Date [...] Report: Basic Metabolic Panel - Chem istry blood glucose 218 mg/dL 65-110 calcium, serum 9.8 mg/dL 8.5-10.1 urea nitrogen, blood 19 mg/dL 7-18 creatinine, serum 1.68 mg/dL 0.60-1.30 sodium, serum 139 mmol/L 203-319 4823/06/26 potassium, serum 4.8 mmol/L 3.5-5.2 chloride, serum 102 mmol/L 98-107 carbon dioxide, venous blood 29.1 mmol/L 21.0-32 .0 blood glucose 179 mg/dL 65-95 calcium, serum 9.7 mg/dL 8.5-10.1 urea nitrogen, blood 31 mg/dL 7-18 creatinine, serum 1.97 mg/dL 0.60-1.30 chloride, serum 98 mmol/L 98-107 potassium, serum 4.7 mmol/L 3.5-5.2 sodium, serum 139 mmol/L 088-076 9454/10/03 carbon dioxide, venous blood 28.7 mmol/L 21.0-32 .0 Lab Report: HGBA1C - Chemistry hemoglobin A1C, blood, as % of total hemoglobin 8.2 % 4.3-6.0 hemoglobin A1C, blood, as % of total hemoglobin 7.6 % 4.3-6.0 hemoglobin A1C, blood, as % of total hemoglobin 7.4 % 4.3-6.0 Lab Report: Lipid Panel, Thyroid Stimula ting Hormone (L) - Chemistry cholesterol, serum 209 mg/dL 045-471 5705/12/27 triglyceride, serum, fasting 329 mg/dL 30-200 HDL cholesterol, serum 56 mg/dL 32-60 LDL cholesterol, serum 87 mg/dL 0-130 TSH 3.60 m[iU]/mL 0.36-3.74 Lab Report: Thyroid Stimulating Hormone (L) - Chemistry TSH 8.56 m[iU]/mL 0.36-3.74 Office Visit: Meds Check - Toxicology drug screen, urine, qualitative negative Encounters Code Encounter Date Provider Facility CPT-52849 [id number] Vst-Est Level IV 13:49:06 Bayron Martinez PA-C [facility] CPT-81398 Level 4 Est. Patient 17:26:08 CARMELLAT Ann trujillo PA-C [facility]-22537 [id number] Vst-Est Level V 14:26:27 CDT Aneudy Childers MD [facility]-65330 Level 4 Est. Patient 17:05:37 CDT Baltazar Childers MD [facility] CPT-07949 Level 4 Est. Patient 16:21:19 COTTON BROKER Baltazar Childers MD [facility]-64924 Level 4 Est. Patient 12:25:11 CDT Baltazar Childers MD [facility] CPT-09088 Level 4 Est. Patient 14:22:31 CDT Baltazar Childers MD [facility]-34584 Level 4 Est. Patient 15:44:38 CDT Shonna Parker [facility] [place][note 2]-79615 Level 4 Est. Patient 11:34:17 CDT Baltazar Childers MD [facility]-98178 Level 3 Est. Patient 16:40:40 CDT Baltaazr Childers MD [facility] CPT-87238 Level 4 Est. Patient 10:41:24 CDT Baltazar Childers MD [facility]-05378 Level 4 Est. Patient 16:01:48 CDT Baltazar Childers MD [facility]-04901 Level 4 Est. Patient 16:54:07 C[employer]OKER Baltazar Childers MD [facility]-30989 Level 4 Est. Patient 15:42:12 CDT Baltazar Childers MD [facility] CPT-93499 Level 4 Est. Patient 11:29:55 CDT Baltazar Childers MD [facility] CPT-47866 Level 4 Est. Patient 14:15:19 CDT Baltazar Childers MD [facility] CPT-44058 Level 4 Est. Patient 12:20:13 CDT Baltazar Childers MD [facility] CPT-37246 Level 4 Est. Patient 14:52:45 [employer]OKER Baltazar Childers MD [facility] CPT-15253 Level 4 Est. Patient 14:18:34 [employer] Baltazar Childers MD [facility] CPT-54061 Level 4 Est. Patient 15:18:29 CDT Baltazar Childers MD [facility] CPT-08848 Level 3 Est. Patient 12:45:34 CDT Baltazar Childers MD [facility] CPT-47695 Level 3 Est. Patient 10:10:11 CDT Baltazar Childers MD [facility] CPT-81569 Level 3 Est. Patient 14:07:50 CDT Baltazar Childers MD [facility] CPT-73004 Level 4 Est. Patient 12:26:10 [employer]OKER Baltazar Childers MD [facility] CPT-90337 Level 4 Est. Patient 14:45:38 CDT Baltazar Childers MD [facility] CPT-82870 Level 4 New Patient 12:30:48 CDT Baltazar hinton MD [facility] Procedures Code Procedure Name Date Entry Date Standard Desc ription CPT-000 Give Appropriate Flu Vaccine 12:25:14 CDT 2 CPT-61026 First Vx - Ix admin via ID I M or jet injects without counseling by physician 13:08:59 CDT CPT-20285 Fluzone Quadrivalent Intramuscular Suspe nsion 0.5 ML 13:08:59 CDT CPT-54825 Venipuncture Draw Fee 12:04:12 CDT CPT-01009 Lipid - LAB USE ONLY 17:39:15 C[employer]TON BROKER 9 CPT-34259 HGBA1C - LAB USE ONLY 17:39:15 [employer] CPT-96061 CMP - LAB USE ONLY 17:39:14 [employer] CPT-50099 Venipuncture Draw Fee 17:39:14 [employer] CPT-01584 First Vx - Ix admin via ID I M or jet injects without counseling by physician 16:55:17 [employer] CPT-29017 Fluzone Quadrivalent Intramuscular Suspe nsion 0.5 ML 16:55:17 [employer] CPT-36640 Renal Panel - LAB USE ONLY 17:39:20 CDT 201 10/31/07 CPT-26105 CBC - LAB USE ONLY 17:39:20 CDT CPT-63266 Venipuncture Draw Fee 17:39:20 CDT CPT-36193 Venipuncture Draw Fee 14:33:30 CDT CPT-44688 Renal Panel - LAB USE ONLY 14:33:30 CDT 201 10/31/07 CPT-81578 CBC - LAB USE ONLY 14:33:29 CDT CPT-60930 Venipuncture Draw Fee 14:50:21 C[employer] BROKER CPT-51755 Immunization Single Admin 17:35:35 CDT 2014 CPT-49964 Fluzone Quadrivalent preservative free ( >=3yrs.) 17:35:35 CDT CPT-68692 Venipuncture Draw Fee 12:10:27 C[employer] BROKER CPT-71938 Fluzone Quadrivalent Intramuscular Suspe nsion 0.5 ML 10:49:13 CDT CPT-32065 First Vx Component - Ix admi n via ID IM or jet inj without physician counseling 15:17:19 C[employer]ER CPT-30552 Pneumovax 23 15:17:19 [employer] CPT-43387 Pneumovax 14:52:45 [employer] CPT-45836 Venipuncture Draw Fee 14:06:30 [employer] CPT-000 Give Appropriate Flu Vaccine 14:18:34 C[employer] BROKER 2 CPT-33846 Administration single or combination vac cine inc oral 14:46:00 [employer] CPT-73259 Influenza split virus > age 3 14:46:00 [employer] CPT-OV Office Visit 19:13:16 CDT CPT-33928 Zostavax 18:41:56 CDT CPT-89448 Administration single or combination vac cine inc oral 12:56:39 CDT CPT-29424 Zoster Vaccine (Zostavax) 12:56:39 CDT 2012 CPT-96416 Venipuncture Draw Fee 10:58:57 CDT CPT-29255 Sono pelvis non OB uterus ovaries cervix 17:45:04 CDT CPT-96556 Sono retroperitoneal complete kidneys an d bladder 17:14:36 CDT CPT-OV Office Visit 14:59:38 C[employer] BROKER CPT-J1070 Depo Testosterone 100 mg 14:50:13 CDT 03/05 CPT-61767 Abx/Therapy Injection 14:50:13 CDT CPT-19695 Administration single or combination vac cine inc oral 14:34:43 CDT CPT-86608 Influenza split virus > age 3 14:34:43 CDT CPT-J1070 Depo Testosterone 100 mg 17:37:13 CDT 01/11 CPT-36797 Abx/Therapy Injection 17:37:13 CDT CPT-82738 Venipuncture Draw Fee 16:30:13 CDT CPT-05969 Venipuncture Draw Fee 16:29:43 CDT CPT-J1070 Depo Testosterone 100 mg 14:45:38 CDT 01/11
--- OUTSIDE RECORDS SUMMARY | 2019-10-27 11:57 | XMS REPORT | Clinical Summary ---
Author Author Admin, Elba Lance [facility] Address Unknown Phone Unavailable Allergies, Adverse Reactions, Alerts Allergy Name Reaction Description Start Date Severity Status Pr ovider ASPIRIN Critical Active Baltazar bynum MD PENICILLIN yeast infection Critical Active Baltazar Childers MD FISH Critical Active Baltazar bynum MD CODEINE Critical Active Blatazar bynum MD Conditions or Problems Problem Name Problem Code Onset Date Status Entry Date Provider Comment Standard Description Annotate ASTHMA 493.90 Active Baltazar Childers MD Asthma, unspecified DEGENERATIVE DISC DISEASE, LUMBAR SPINE 722.52 Active Baltazar Childers MD Degeneration of lumbar or lumbosacral in tervertebral disc ANXIETY 300.00 Active Baltazar Childers MD Anxiety state, unspecified RESTLESS LEG SYNDROME 333.94 Active aBltazar Nickerson MD Restless legs syndrome (RLS) DIABETES [...] ronary atherosclerosis of unspecified type of vessel, kalispel or graft OTH NONSPC ABN FINDNG RAD&OTH [...] and one half) tabs once daily METHOCARBAMOL 00882519191 Active KENDALL Juarez Active SYNTHROID 112 MCG ORAL TABLET Take one tablet a day LEVOTHYROXINE SODIUM 24171447602 Active Agata Silveira MA Active TRUE METRIX AIR GLUCOSE METER DEVICE Use as directed BLOOD GLUCOSE MONITORING SUPPL 66108780327 Active Baltazar Childers MD Activ e TRUE METRIX BLOOD GLUCOSE TEST IN VITRO STRIP test blood sug ar BID Dx: E11.65 GLUCOSE BLOOD 32151969120 Active Ct Ledesma MA Active NORTRIPTYLINE HCL 50 MG ORAL CAPSULE 1 twice a day for neuropathy 2 NORTRIPTYLINE HCL 10345901501 Active Ann Martinez PA-C Act amie ASPIRIN 81 MG TBEC Take one (1) tablet by mouth daily ASPIRIN 31146059318 Active Baltazar Childers MD Active GABAPENTIN 300 MG ORAL CAPSULE 1 three times a day 201 12/03/26 GABAPENTIN 65701472610 No Longer Active Baltazar Childers MD Activ e LISINOPRIL 20 MG ORAL TABLET 1 tablet by mouth daily at night 2016 LISINOPRIL 24634094625 Active Ann Martinez PA-C Active ZITHROMAX Z-ISAIAS 250 MG ORAL TABLET Take two tablets to day and then 1 tablet daily for 4 days AZITHROMYCIN 92264658339 No Longer A ctive Baltazar Childers MD Active LANTUS SOLOSTAR 100 UNIT/ML SUBCUTANEOUS SOLUTION PEN- INJECTOR 30 units SC daily INSULIN GLARGINE 86920046018 Active Baltazar Childers MD Active AMLODIPINE BESYLATE 5 MG ORAL TABLET 1 tab daily for HTN AMLODIPINE BESYLATE 77816580778 Active Ann Martinez PA-C Active GLIPIZIDE 10 MG ORAL TABLET take 2 tablets twice daily GLIPIZIDE 36689106690 Active Baltazar Childers MD Active SUCRALFATE 1 GM ORAL TABLET 1 four times a day to coat the stoma ch SUCRALFATE 43704098187 No Longer Active Baltazar Childers MD Active PEN NEEDLES 31G X 6 MM use 1 daily INSULIN PEN NE EDLE 44109071544 Active KENDALL Juarez Active TOUJEO SOLOSTAR 300 UNIT/ML SUBCUTANEOUS SOLUTION PEN- INJECTOR 10 units SC daily INSULIN GLARGINE 90487579984 No Longer Active Rola ARGUETA Active NAPROXEN SODIUM 220 MG ORAL TABLET 1 three times a day as needed NAPROXEN SODIUM 50100875841 No Longer Active Baltazar Childers MD Active ATORVASTATIN CALCIUM 20 MG ORAL TABLET Take 1 tab daily ATORVASTATIN CALCIUM 43230220646 Active Baltazar Childers MD A ctive FUROSEMIDE 40 MG ORAL TABLET Take one by mouth daily FUROSEMIDE 20206192629 Active Baltazar Childers MD Active LISINOPRIL 20 MG ORAL TABLET Take one by mouth daily at bedtime LISINOPRIL 13823228616 No Longer Active Baltazar Childers MD Active ONETOUCH ULTRA BLUE IN VITRO STRIP Test twice a day 07/11/11 GLUCOSE BLOOD 58045775859 No Longer Active Baltazar Childers MD Acti ve TRUEPLUS LANCETS 33G Test twice a day LANCETS 8367128 3998 Active KENDALL Juarez Active TRUEDRAW LANCING DEVICE Test twice a day LANCET DEVICES 63897676692 Active Baltazar Childers MD Active TRUETRACK BLOOD GLUCOSE w/Device KIT Test twice a day BLOOD GLUCOSE MONITORING SUPPL 38664977012 Active Baltazar Childers MD Activ e HYDROCODONE-ACETAMINOPHEN 7.5-325 MG ORAL TABLET Take 1 tab every 6-8 hours PRN HYDROCODONE-ACETAMINOPHEN 69692164716 Active Ann maciel PA-C Active GABAPENTIN 300 MG ORAL CAPSULE 1 po qd x 2 days, then 1 po BID x 2 days, then 1 po TID GABAPENTIN 99895494540 No Longer Active Baltazar Childers MD Active TRAMADOL HCL 50 MG ORAL TABLET 1 twice a day as needed for pain 201 07/27/28 TRAMADOL HCL 81879218954 Active Baltazar Childers MD Active NAPROXEN 500 MG ORAL TABLET 1 tablet by mouth twice daily NAPROXEN 63214877946 No Longer Active Baltazar Childers MD Active PROAIR HFA 108 (90 Base) MCG/ACT INHALATION AEROSOL SO LUTION 2 puffs four times a day as needed ALBUTEROL SULFATE 85411850439 Active KENDALL Bowie Active DEPO-TESTOSTERONE 200 MG/ML INTRAMUSCULAR SOLUTION as directed TESTOSTERONE CYPIONATE 50742972988 No Longer Active Baltazar Childers MD Active LIPITOR 20 MG ORAL TABLET Take one by mouth daily in evening ATORVASTATIN CALCIUM 56449676735 No Longer Active Baltazar Childers MD Active CRESTOR 10 MG ORAL TABLET 1 by mouth every day ROSUVASTATIN CALCIUM 27087687783 No Longer Active Baltazar Childers MD Active PHENTERMINE HCL 37.5 MG ORAL TABLET Take one by mouth daily PHENTERMINE HCL 57310214968 No Longer Active Baltazar Childers MD Ac tive TIZANIDINE HCL 4 MG ORAL TABLET 1 daily as needed for muscle spa sm TIZANIDINE HCL 63508958428 No Longer Active Dawna Salazar RN Active [id number] 50-325-40 MG ORAL TABLET 1 fo ur times a day as needed for heacache [id number] 78950618835 Active Baltazar Childers MD Active SUMATRIPTAN SUCCINATE 100 MG ORAL TABLET 1 tablet by m outh at onset of migraine as needed SUMATRIPTAN SUCCINATE 02200248248 Active KENDALL Restrepo Active LORATADINE 10 MG ORAL TABLET Take one by mouth daily LORATADINE 84228073146 Active KENDALL Juarez Active OMEPRAZOLE 20 MG ORAL CAPSULE DELAYED RELEASE Take one by mouth jostin ly OMEPRAZOLE 64984481511 Active Ann Martinez PA-C Active HYDROXYZINE HCL 25 MG ORAL TABLET Take one by mouth daily HYDROXYZINE HCL 33682840615 Active Baltazar Childers MD Active ALPRAZOLAM 1 MG ORAL TABLET 1 tablet [facility] ALPRAZOLAM 02008401253 Active Baltazar Childers MD Active METFORMIN HCL 1000 MG ORAL TABLET Take one by mouth twice daily METFORMIN HCL 95548077759 Active Baltazar Childers MD Active TIZANIDINE HCL 4 MG ORAL TABLET 1 daily as needed for muscle spa sm TIZANIDINE HCL 4 MG ORAL TABLET 058012 TIZANIDINE HCL Inactive PHENTERMINE HCL 37.5 MG ORAL TABLET Take one by mouth daily PHENTERMINE HCL 37.5 MG ORAL TABLET 211668 PHENTERMINE HCL Inac tive CRESTOR 10 MG ORAL TABLET 1 by mouth every day CRESTOR 10 MG ORAL TABLET 720947 ROSUVASTATIN CALCIUM Inactive LIPITOR 20 MG ORAL TABLET Take one by mouth daily in evening LIPITOR 20 MG ORAL TABLET 721834 ATORVASTATIN CALCIUM Inactive DEPO-TESTOSTERONE 200 MG/ML INTRAMUSCULAR SOLUTION as directed DEPO-TESTOSTERONE 200 MG/ML INTRAMUSCULAR SOLUTION 6906857 RUFINO TOSTERONE CYPIONATE Inactive NAPROXEN 500 MG ORAL TABLET 1 tablet by mouth twice daily NAPROXEN 500 MG ORAL TABLET 694897 NAPROXEN Inactive GABAPENTIN 300 MG ORAL CAPSULE 1 po qd x 2 days, then 1 po BID x 2 days, then 1 po TID GABAPENTIN 300 MG ORAL CAPSULE 890261 GABAP ENTIN Inactive ONETOUCH ULTRA BLUE IN VITRO STRIP Test twice a day 07/11/11 ONETOUCH ULTRA BLUE IN VITRO STRIP GLUCOSE BLOOD Inact amie NAPROXEN SODIUM 220 MG ORAL TABLET 1 three times a day as needed NAPROXEN SODIUM 220 MG ORAL TABLET 966001 NAPROXEN SODI UM Inactive TOUJEO SOLOSTAR 300 UNIT/ML SUBCUTANEOUS SOLUTION PEN- INJECTOR 10 units SC daily TOUJEO SOLOSTAR 300 UNIT/ML SUBCUTANEOUS SOLUTION PEN-INJECTOR INSULIN GLARGINE Inactive SUCRALFATE 1 GM ORAL TABLET 1 four times a day to coat the stoma ch SUCRALFATE 1 GM ORAL TABLET 285380 SUCRALFATE Inac tive GABAPENTIN 300 MG ORAL CAPSULE 1 three times a day 201 12/03/26 GABAPENTIN 300 MG ORAL CAPSULE 050031 GABAPENTIN Inactive ZITHROMAX Z-ISAIAS 250 MG ORAL TABLET Take two tablets to day and then 1 tablet daily for 4 days ZITHROMAX Z-ISAIAS 250 MG ORAL TAB LET 410851 AZITHROMYCIN Inactive Immunizations Vaccine Administration Date Value Standard Floyd cription pneumococcal immunization administered Pneumovax 23 [CVX33] pneumococcal polysaccharide vaccine, 23 valent Seasonal influenza vaccine, injectable, containing preservative, for > 3 years old (Afluria, FluLaval, Fluzone, Fluvirin, Fluarix, Agriflu(>= 18 yo)) Fluzone (>3 yrs.) [ZTC186] Influenza, seasonal, inject able Seasonal influenza vaccine, injectable, containing preservative, for > 3 years old (Afluria, FluLaval, Fluzone, Fluvirin, Fluarix, Agriflu(>= 18 yo)) Fluzone (>3 yrs.) [ECR561] Influenza, seasonal, inject able Vital Signs Date [...] - Chem istry sodium, serum 139 mmol/L 933-271 7687/10/03 potassium, serum 4.7 mmol/L 3.5-5.2 chloride, serum 98 mmol/L 98-107 carbon dioxide, venous blood 28.7 mmol/L 21.0-32 .0 blood glucose 218 mg/dL 65-110 calcium, serum 9.8 mg/dL 8.5-10.1 urea nitrogen, blood 19 mg/dL 7-18 creatinine, serum 1.68 mg/dL 0.60-1.30 sodium, serum 139 mmol/L 536-227 0369/06/26 potassium, serum 4.8 mmol/L 3.5-5.2 chloride, serum [...] (L) - Chemistry cholesterol, serum 209 mg/dL 387-141 8499/12/27 triglyceride, serum, fasting 329 mg/dL 30-200 HDL cholesterol, serum 56 mg/dL 32-60 LDL cholesterol, serum 87 mg/dL 0-130 TSH 3.60 m[iU]/mL 0.36-3.74 Lab Report: Thyroid Stimulating Hormone (L) - Chemistry TSH 8.56 m[iU]/mL 0.36-3.74 Office Visit: Meds Check - Toxicology drug screen, urine, qualitative negative Encounters Code Encounter Date Provider Facility CPT-57094 [id number] Vst-Est Level IV 13:49:06 Bayron Martinez PA-C [facility] CPT-50837 Level 4 Est. Patient 17:26:08 CARMELLAT Ann trujillo PA-C [facility]-76160 [id number] Vst-Est Level V 14:26:27 CDT Aneudy Childers MD [facility]-89650 Level 4 Est. Patient 17:05:37 CDT Baltazar Childers MD [facility] CPT-19621 Level 4 Est. Patient 16:21:19 TUBE BUFFER Baltazar Childers MD [facility]-06673 Level 4 Est. Patient 12:25:11 CDT Baltazar Childers MD [facility] CPT-30400 Level 4 Est. Patient 14:22:31 CDT Baltazar Childers MD [facility]-10632 Level 4 Est. Patient 15:44:38 CDT Shonna Parker [facility]-51092 Level 4 Est. Patient 11:34:17 CDT Baltazar Childers MD [facility]-08837 Level 3 Est. Patient 16:40:40 CDT Baltazar Childers MD [facility] CPT-40202 Level 4 Est. Patient 10:41:24 CDT Baltazar Childers MD [facility]-59567 Level 4 Est. Patient 16:01:48 CDT Baltazar Childers MD [facility]-51837 Level 4 Est. Patient 16:54:07 TUBE BUFFER Baltazar Childers MD [facility]-12466 Level 4 Est. Patient 15:42:12 CDT Baltazar Childers MD [facility] CPT-65218 Level 4 Est. Patient 11:29:55 CDT Baltazar Childers MD [facility] CPT-30066 Level 4 Est. Patient 14:15:19 CDT Baltazar Childers MD [facility] CPT-13699 Level 4 Est. Patient 12:20:13 CDT Baltazar Childers MD [facility] CPT-25312 Level 4 Est. Patient 14:52:45 TUBE BUFFER Baltazar Childers MD [facility] CPT-14353 Level 4 Est. Patient 14:18:34 TUBE BUFFER Baltazar Childers MD [facility] CPT-34624 Level 4 Est. Patient 15:18:29 CDT Baltzaar Childers MD [facility] CPT-27360 Level 3 Est. Patient 12:45:34 CDT Baltazar Childers MD [facility] CPT-67225 Level 3 Est. Patient 10:10:11 CDT Baltazar Childers MD [facility] CPT-92155 Level 3 Est. Patient 14:07:50 CDT Baltazar Childers MD [facility] CPT-77082 Level 4 Est. Patient 12:26:10 TUBE BUFFER Baltazar Childers MD [facility] CPT-15453 Level 4 Est. Patient 14:45:38 CDT Baltazar Childers MD [facility] CPT-03861 Level 4 New Patient 12:30:48 CDT Baltazar hinton MD [facility] Procedures Code Procedure Name Date Entry Date Standard Desc ription CPT-000 Give Appropriate Flu Vaccine 12:25:14 CDT 2 CPT-55116 First Vx - Ix admin via ID I M or jet injects without counseling by physician 13:08:59 CDT CPT-92434 Fluzone Quadrivalent Intramuscular Suspe nsion 0.5 ML 13:08:59 CDT CPT-11872 Venipuncture Draw Fee 12:04:12 CDT CPT-55604 Lipid - LAB USE ONLY 17:39:15 TUBE BUFFER 9 CPT-84772 HGBA1C - LAB USE ONLY 17:39:15 TUBE BUFFER CPT-26292 CMP - LAB USE ONLY 17:39:14 TUBE BUFFER CPT-38827 Venipuncture Draw Fee 17:39:14 TUBE BUFFER CPT-12529 First Vx - Ix admin via ID I M or jet injects without counseling by physician 16:55:17 TUBE BUFFER CPT-65154 Fluzone Quadrivalent Intramuscular Suspe nsion 0.5 ML 16:55:17 TUBE BUFFER CPT-05112 Renal Panel - LAB USE ONLY 17:39:20 CDT 201 10/31/07 CPT-38023 CBC - LAB USE ONLY 17:39:20 CDT CPT-06963 Venipuncture Draw Fee 17:39:20 CDT CPT-45646 Venipuncture Draw Fee 14:33:30 CDT CPT-15501 Renal Panel - LAB USE ONLY 14:33:30 CDT 201 10/31/07 CPT-67188 CBC - LAB USE ONLY 14:33:29 CDT CPT-47379 Venipuncture Draw Fee 14:50:21 TUBE BUFFER CPT-22105 Immunization Single Admin 17:35:35 CDT 2014 CPT-24725 Fluzone Quadrivalent preservative free ( >=3yrs.) 17:35:35 CDT CPT-91061 Venipuncture Draw Fee 12:10:27 TUBE BUFFER CPT-03650 Fluzone Quadrivalent Intramuscular Suspe nsion 0.5 ML 10:49:13 CDT CPT-00185 First Vx Component - Ix admi n via ID IM or jet inj without physician counseling 15:17:19 TUBE BUFFER CPT-04251 Pneumovax 23 15:17:19 TUBE BUFFER CPT-47008 Pneumovax 14:52:45 TUBE BUFFER CPT-67022 Venipuncture Draw Fee 14:06:30 TUBE BUFFER CPT-000 Give Appropriate Flu Vaccine 14:18:34 TUBE BUFFER 2 CPT-23575 Administration single or combination vac cine inc oral 14:46:00 TUBE BUFFER CPT-57113 Influenza split virus > age 3 14:46:00 TUBE BUFFER CPT-OV Office Visit 19:13:16 CDT CPT-94965 Zostavax 18:41:56 CDT CPT-71541 Administration single or combination vac cine inc oral 12:56:39 CDT CPT-12240 Zoster Vaccine (Zostavax) 12:56:39 CDT 2012 CPT-84690 Venipuncture Draw Fee 10:58:57 CDT CPT-27836 Sono pelvis non OB uterus ovaries cervix 17:45:04 CDT CPT-18772 Sono retroperitoneal complete kidneys an d bladder 17:14:36 CDT CPT-OV Office Visit 14:59:38 TUBE BUFFER CPT-J1070 Depo Testosterone 100 mg 14:50:13 CDT 03/05 CPT-97084 Abx/Therapy Injection 14:50:13 CDT CPT-24284 Administration single or combination vac cine inc oral 14:34:43 CDT CPT-29223 Influenza split virus > age 3 14:34:43 CDT CPT-J1070 Depo Testosterone 100 mg 17:37:13 CDT 01/11 CPT-71232 Abx/Therapy Injection 17:37:13 CDT CPT-06186 Venipuncture Draw Fee 16:30:13 CDT CPT-34131 Venipuncture Draw Fee 16:29:43 CDT CPT-J1070 Depo Testosterone 100 mg 14:45:38 CDT 01/11
--- OUTSIDE RECORDS SUMMARY | 2019-10-27 11:57 | XMS REPORT | Clinical Summary ---
[...] ronary atherosclerosis of unspecified type of vessel, [place] or graft OTH NONSPC ABN FINDNG [...] and one half) tabs once daily METHOCARBAMOL 98744109747 Active KENDALL Juarez Active SYNTHROID 112 MCG ORAL TABLET Take one tablet a day LEVOTHYROXINE SODIUM 87001391306 Active Agata Silveira MA Active TRUE METRIX AIR GLUCOSE METER DEVICE Use as directed BLOOD GLUCOSE MONITORING SUPPL 10656712148 Active Baltazar Childers MD Activ e TRUE METRIX BLOOD GLUCOSE TEST IN VITRO STRIP test blood sug ar BID Dx: E11.65 GLUCOSE BLOOD 86895049346 Active Ct Ledesma MA Active NORTRIPTYLINE HCL 50 MG ORAL CAPSULE 1 twice a day for neuropathy 2 NORTRIPTYLINE HCL 32271472712 Active Ann Martinez PA-C Act amie ASPIRIN 81 MG TBEC Take one (1) tablet by mouth daily ASPIRIN 50845262599 Active Baltazar Childers MD Active GABAPENTIN 300 MG ORAL CAPSULE 1 three times a day 201 12/03/26 GABAPENTIN 44238713740 No Longer Active Baltazar Childers MD Activ e LISINOPRIL 20 MG ORAL TABLET 1 tablet by mouth daily at night 2016 LISINOPRIL 62074571115 Active Ann Martinez PA-C Active ZITHROMAX Z-ISAIAS 250 MG ORAL TABLET Take two tablets to day and then 1 tablet daily for 4 days AZITHROMYCIN 80885564450 No Longer A ctive Baltazar Childers MD Active LANTUS SOLOSTAR 100 UNIT/ML SUBCUTANEOUS SOLUTION PEN- INJECTOR 30 units SC daily INSULIN GLARGINE 69028701803 Active Baltazar Childers MD Active AMLODIPINE BESYLATE 5 MG ORAL TABLET 1 tab daily for HTN AMLODIPINE BESYLATE 61174133900 Active Ann Martinez PA-C Active GLIPIZIDE 10 MG ORAL TABLET take 2 tablets twice daily GLIPIZIDE 58564052947 Active Baltazar Childers MD Active SUCRALFATE 1 GM ORAL TABLET 1 four times a day to coat the stoma ch SUCRALFATE 46629124427 No Longer Active Baltazar Childers MD Active PEN NEEDLES 31G X 6 MM use 1 daily INSULIN PEN NE EDLE 26071188809 Active KENDALL Juarez Active TOUJEO SOLOSTAR 300 UNIT/ML SUBCUTANEOUS SOLUTION PEN- INJECTOR 10 units SC daily INSULIN GLARGINE 38399122085 No Longer Active Rola ARGUETA Active NAPROXEN SODIUM 220 MG ORAL TABLET 1 three times a day as needed NAPROXEN SODIUM 00634288590 No Longer Active Baltazar Childers MD Active ATORVASTATIN CALCIUM 20 MG ORAL TABLET Take 1 tab daily ATORVASTATIN CALCIUM 60898792835 Active Baltazar Childers MD A ctive FUROSEMIDE 40 MG ORAL TABLET Take one by mouth daily FUROSEMIDE 69306101479 Active Baltazar Childers MD Active LISINOPRIL 20 MG ORAL TABLET Take one by mouth daily at bedtime LISINOPRIL 06231367840 No Longer Active Baltazar Childers MD Active ONETOUCH ULTRA BLUE IN VITRO STRIP Test twice a day 07/11/11 GLUCOSE BLOOD 67975044215 No Longer Active Baltazar Childers MD Acti ve TRUEPLUS LANCETS 33G Test twice a day LANCETS 1088382 4881 Active KENDALL Juarez Active TRUEDRAW LANCING DEVICE Test twice a day LANCET DEVICES 82602723148 Active Baltazar Childers MD Active TRUETRACK BLOOD GLUCOSE w/Device KIT Test twice a day BLOOD GLUCOSE MONITORING SUPPL 96256637454 Active Baltazar Childers MD Activ e HYDROCODONE-ACETAMINOPHEN 7.5-325 MG ORAL TABLET Take 1 tab every 6-8 hours PRN HYDROCODONE-ACETAMINOPHEN 56699762149 Active Ann maciel PA-C Active GABAPENTIN 300 MG ORAL CAPSULE 1 po qd x 2 days, then 1 po BID x 2 days, then 1 po TID GABAPENTIN 95011587363 No Longer Active Baltazar Childers MD Active TRAMADOL HCL 50 MG ORAL TABLET 1 twice a day as needed for pain 201 07/27/28 TRAMADOL HCL 99285313137 Active Baltazar Childers MD Active NAPROXEN 500 MG ORAL TABLET 1 tablet by mouth twice daily NAPROXEN 35713247147 No Longer Active Baltazar Childers MD Active PROAIR HFA 108 (90 Base) MCG/ACT INHALATION AEROSOL SO LUTION 2 puffs four times a day as needed ALBUTEROL SULFATE 96991112609 Active R gilberto Childers MD Active DEPO-TESTOSTERONE 200 MG/ML INTRAMUSCULAR SOLUTION as directed TESTOSTERONE CYPIONATE 80473973394 No Longer Active Baltazar Childers MD Active LIPITOR 20 MG ORAL TABLET Take one by mouth daily in evening ATORVASTATIN CALCIUM 25441105043 No Longer Active Baltazar Childers MD Active CRESTOR 10 MG ORAL TABLET 1 by mouth every day ROSUVASTATIN CALCIUM 12162100393 No Longer Active Baltazar Childers MD Active PHENTERMINE HCL 37.5 MG ORAL TABLET Take one by mouth daily PHENTERMINE HCL 30237479074 No Longer Active Blatazar Childers MD Ac tive TIZANIDINE HCL 4 MG ORAL TABLET 1 daily as needed for muscle spa sm TIZANIDINE HCL 28243419823 No Longer Active Dawna Salazar RN Active [id number] 50-325-40 MG ORAL TABLET 1 fo ur times a day as needed for heacache [id number] 57298513771 Active Baltazar Childers MD Active SUMATRIPTAN SUCCINATE 100 MG ORAL TABLET 1 tablet by m outh at onset of migraine as needed SUMATRIPTAN SUCCINATE 37600219655 Active KENDALL Restrepo Active LORATADINE 10 MG ORAL TABLET Take one by mouth daily LORATADINE 24234454305 Active KENDALL Juarez Active OMEPRAZOLE 20 MG ORAL CAPSULE DELAYED RELEASE Take one by mouth jostin ly OMEPRAZOLE 18822971848 Active Ann Martinez PA-C Active HYDROXYZINE HCL 25 MG ORAL TABLET Take one by mouth daily HYDROXYZINE HCL 09388467310 Active Baltazar Childers MD Active ALPRAZOLAM 1 MG ORAL TABLET 1 [facility] 65891016740 Active Baltazar Childers MD Active METFORMIN HCL 1000 MG ORAL TABLET Take one by mouth twice daily METFORMIN HCL 17638144721 Active Baltazar Childers MD Active TIZANIDINE HCL 4 MG ORAL TABLET 1 daily as needed for muscle spa sm TIZANIDINE HCL 4 MG ORAL TABLET 442637 TIZANIDINE HCL Inactive PHENTERMINE HCL 37.5 MG ORAL TABLET Take one by mouth daily PHENTERMINE HCL 37.5 MG ORAL TABLET 051004 PHENTERMINE HCL Inac tive CRESTOR 10 MG ORAL TABLET 1 by mouth every day CRESTOR 10 MG ORAL TABLET 581130 ROSUVASTATIN CALCIUM Inactive LIPITOR 20 MG ORAL TABLET Take one by mouth daily in evening LIPITOR 20 MG ORAL TABLET 377551 ATORVASTATIN CALCIUM Inactive DEPO-TESTOSTERONE 200 MG/ML INTRAMUSCULAR SOLUTION as directed DEPO-TESTOSTERONE 200 MG/ML INTRAMUSCULAR SOLUTION 3889261 RUFINO TOSTERONE CYPIONATE Inactive NAPROXEN 500 MG ORAL TABLET 1 tablet by mouth twice daily NAPROXEN 500 MG ORAL TABLET 517758 NAPROXEN Inactive GABAPENTIN 300 MG ORAL CAPSULE 1 po qd x 2 days, then 1 po BID x 2 days, then 1 po TID GABAPENTIN 300 MG ORAL CAPSULE 367097 GABAP ENTIN Inactive ONETOUCH ULTRA BLUE IN VITRO STRIP Test twice a day 07/11/11 ONETOUCH ULTRA BLUE IN VITRO STRIP GLUCOSE BLOOD Inact amie NAPROXEN SODIUM 220 MG ORAL TABLET 1 three times a day as needed NAPROXEN SODIUM 220 MG ORAL TABLET 976404 NAPROXEN SODI UM Inactive TOUJEO SOLOSTAR 300 UNIT/ML SUBCUTANEOUS SOLUTION PEN- INJECTOR 10 units SC daily TOUJEO SOLOSTAR 300 UNIT/ML SUBCUTANEOUS SOLUTION PEN-INJECTOR INSULIN GLARGINE Inactive SUCRALFATE 1 GM ORAL TABLET 1 four times a day to coat the stoma ch SUCRALFATE 1 GM ORAL TABLET 635075 SUCRALFATE Inac tive GABAPENTIN 300 MG ORAL CAPSULE 1 three times a day 201 12/03/26 GABAPENTIN 300 MG ORAL CAPSULE 551416 GABAPENTIN Inactive ZITHROMAX Z-ISAIAS 250 MG ORAL TABLET Take two tablets to day and then 1 tablet daily for 4 days ZITHROMAX Z-ISAIAS 250 MG ORAL TAB LET 384810 AZITHROMYCIN Inactive Immunizations Vaccine Administration Date Value Standard Floyd cription pneumococcal immunization administered Pneumovax 23 [CVX33] pneumococcal polysaccharide vaccine, 23 valent Seasonal influenza vaccine, injectable, containing preservative, for > 3 years old (Afluria, FluLaval, Fluzone, Fluvirin, Fluarix, Agriflu(>= 18 yo)) Fluzone (>3 yrs.) [SQM893] Influenza, seasonal, inject able Seasonal influenza vaccine, injectable, containing preservative, for > 3 years old (Afluria, FluLaval, Fluzone, Fluvirin, Fluarix, Agriflu(>= 18 yo)) Fluzone (>3 yrs.) [AAO188] Influenza, seasonal, inject able Vital Signs Date [...] mg/dL 7-18 creatinine, serum 1.68 mg/dL 0.60-1.30 carbon dioxide, venous blood 28.7 mmol/L 21.0-32 .0 chloride, serum 98 mmol/L 98-107 potassium, serum 4.7 mmol/L 3.5-5.2 sodium, serum 139 mmol/L 904-471 1032/06/26 potassium, serum 4.8 mmol/L 3.5-5.2 urea nitrogen, blood 31 mg/dL 7-18 creatinine, serum 1.97 mg/dL 0.60-1.30 chloride, serum 102 mmol/L 98-107 carbon dioxide, venous blood 29.1 mmol/L 21.0-32 .0 blood glucose 179 mg/dL 65-95 calcium, serum 9.7 mg/dL 8.5-10.1 sodium, serum 139 mmol/L 136-145 Lab Report: HGBA1C - Chemistry hemoglobin A1C, blood, as % of total hemoglobin 8.2 % 4.3-6.0 hemoglobin A1C, blood, as % of total hemoglobin 7.6 % 4.3-6.0 hemoglobin A1C, blood, as % of total hemoglobin 7.4 % 4.3-6.0 Lab Report: Lipid Panel, Thyroid Stimula ting Hormone (L) - Chemistry cholesterol, serum 209 mg/dL 086-656 1588/12/27 triglyceride, serum, fasting 329 mg/dL 30-200 HDL cholesterol, serum 56 mg/dL 32-60 LDL cholesterol, serum 87 mg/dL 0-130 TSH 3.60 m[iU]/mL 0.36-3.74 Lab Report: Thyroid Stimulating Hormone (L) - Chemistry TSH 8.56 m[iU]/mL 0.36-3.74 Office Visit: Meds Check - Toxicology drug screen, urine, qualitative negative Encounters Code Encounter Date Provider Facility CPT-28914 [id number] Vst-Est Level IV 13:49:06 Bayron Martinez PA-C [facility] CPT-71175 Level 4 Est. Patient 17:26:08 CARMELLAT Ann trujillo PA-C [facility]-93432 [id number] Vst-Est Level V 14:26:27 CDT Aneudy Childers MD [facility]-44085 Level 4 Est. Patient 17:05:37 CDT Baltazar Childers MD [facility] CPT-37166 Level 4 Est. Patient 16:21:19 MEDIA RELATIONS ASSOCIATE Baltazar Childers MD [facility]-88042 Level 4 Est. Patient 12:25:11 CDT Baltazar Childers MD [facility] CPT-53988 Level 4 Est. Patient 14:22:31 CDT Baltazar Childers MD [facility]-16491 Level 4 Est. Patient 15:44:38 CDT Shonna Parker [facility]-71580 Level 4 Est. Patient 11:34:17 CDT Baltazar Childers MD [facility]-87396 Level 3 Est. Patient 16:40:40 CDT Baltazar Childers MD [facility] CPT-08703 Level 4 Est. Patient 10:41:24 CDT Baltazar Childers MD [facility]-64233 Level 4 Est. Patient 16:01:48 CDT Baltazar Childers MD [facility]-23713 Level 4 Est. Patient 16:54:07 MEDIA RELATIONS ASSOCIATE Baltazar Childers MD [facility]-64343 Level 4 Est. Patient 15:42:12 CDT Baltazar Childers MD [facility] CPT-82931 Level 4 Est. Patient 11:29:55 CDT Baltazar Childers MD [facility] CPT-80852 Level 4 Est. Patient 14:15:19 CDT Baltazar Childers MD [facility] CPT-49393 Level 4 Est. Patient 12:20:13 CDT Baltazar Childers MD [facility] CPT-24690 Level 4 Est. Patient 14:52:45 MEDIA RELATIONS ASSOCIATE Baltazar Childers MD [facility] CPT-28011 Level 4 Est. Patient 14:18:34 MEDIA RELATIONS ASSOCIATE Baltazar Childers MD [facility] CPT-54760 Level 4 Est. Patient 15:18:29 CDT Baltazar Childers MD [facility] CPT-42321 Level 3 Est. Patient 12:45:34 CDT Baltazar Childers MD [facility] CPT-57930 Level 3 Est. Patient 10:10:11 CDT Baltazar Childers MD [facility] CPT-83809 Level 3 Est. Patient 14:07:50 CDT Baltazar Childers MD [facility] CPT-81294 Level 4 Est. Patient 12:26:10 MEDIA RELATIONS ASSOCIATE Baltazar Childers MD [facility] CPT-00108 Level 4 Est. Patient 14:45:38 CDT Baltazar Childers MD [facility] CPT-65727 Level 4 New Patient 12:30:48 CDT Baltazar hinton MD [facility] Procedures Code Procedure Name Date Entry Date Standard Desc ription CPT-000 Give Appropriate Flu Vaccine 12:25:14 CDT 2 CPT-18441 First Vx - Ix admin via ID I M or jet injects without counseling by physician 13:08:59 CDT CPT-46500 Fluzone Quadrivalent Intramuscular Suspe nsion 0.5 ML 13:08:59 CDT CPT-97461 Venipuncture Draw Fee 12:04:12 CDT CPT-34487 Lipid - LAB USE ONLY 17:39:15 MEDIA RELATIONS ASSOCIATE 9 CPT-83730 HGBA1C - LAB USE ONLY 17:39:15 MEDIA RELATIONS ASSOCIATE CPT-46116 CMP - LAB USE ONLY 17:39:14 MEDIA RELATIONS ASSOCIATE CPT-46578 Venipuncture Draw Fee 17:39:14 MEDIA RELATIONS ASSOCIATE CPT-70351 First Vx - Ix admin via ID I M or jet injects without counseling by physician 16:55:17 MEDIA RELATIONS ASSOCIATE CPT-23095 Fluzone Quadrivalent Intramuscular Suspe nsion 0.5 ML 16:55:17 MEDIA RELATIONS ASSOCIATE CPT-08694 Renal Panel - LAB USE ONLY 17:39:20 CDT 201 10/31/07 CPT-04837 CBC - LAB USE ONLY 17:39:20 CDT CPT-05848 Venipuncture Draw Fee 17:39:20 CDT CPT-51996 Venipuncture Draw Fee 14:33:30 CDT CPT-01774 Renal Panel - LAB USE ONLY 14:33:30 CDT 201 10/31/07 CPT-80282 CBC - LAB USE ONLY 14:33:29 CDT CPT-70979 Venipuncture Draw Fee 14:50:21 MEDIA RELATIONS ASSOCIATE CPT-37843 Immunization Single Admin 17:35:35 CDT 2014 CPT-04830 Fluzone Quadrivalent preservative free ( >=3yrs.) 17:35:35 CDT CPT-19991 Venipuncture Draw Fee 12:10:27 MEDIA RELATIONS ASSOCIATE CPT-90425 Fluzone Quadrivalent Intramuscular Suspe nsion 0.5 ML 10:49:13 CDT CPT-04117 First Vx Component - Ix admi n via ID IM or jet inj without physician counseling 15:17:19 MEDIA RELATIONS ASSOCIATE CPT-75147 Pneumovax 23 15:17:19 MEDIA RELATIONS ASSOCIATE CPT-26146 Pneumovax 14:52:45 MEDIA RELATIONS ASSOCIATE CPT-95495 Venipuncture Draw Fee 14:06:30 MEDIA RELATIONS ASSOCIATE CPT-000 Give Appropriate Flu Vaccine 14:18:34 MEDIA RELATIONS ASSOCIATE 2 CPT-87653 Administration single or combination vac cine inc oral 14:46:00 MEDIA RELATIONS ASSOCIATE CPT-85189 Influenza split virus > age 3 14:46:00 MEDIA RELATIONS ASSOCIATE CPT-OV Office Visit 19:13:16 CDT CPT-32962 Zostavax 18:41:56 CDT CPT-65120 Administration single or combination vac cine inc oral 12:56:39 CDT CPT-99578 Zoster Vaccine (Zostavax) 12:56:39 CDT 2012 CPT-24488 Venipuncture Draw Fee 10:58:57 CDT CPT-40414 Sono pelvis non OB uterus ovaries cervix 17:45:04 CDT CPT-13960 Sono retroperitoneal complete kidneys an d bladder 17:14:36 CDT CPT-OV Office Visit 14:59:38 MEDIA RELATIONS ASSOCIATE CPT-J1070 Depo Testosterone 100 mg 14:50:13 CDT 03/05 CPT-59882 Abx/Therapy Injection 14:50:13 CDT CPT-38114 Administration single or combination vac cine inc oral 14:34:43 CDT CPT-15565 Influenza split virus > age 3 14:34:43 CDT CPT-J1070 Depo Testosterone 100 mg 17:37:13 CDT 01/11 CPT-97270 Abx/Therapy Injection 17:37:13 CDT CPT-99322 Venipuncture Draw Fee 16:30:13 CDT CPT-52133 Venipuncture Draw Fee 16:29:43 CDT CPT-J1070 Depo Testosterone 100 mg 14:45:38 CDT 01/11
--- OUTSIDE RECORDS SUMMARY | 2019-10-27 11:58 | XMS REPORT | Clinical Summary ---
Author Author Admin, Elba Lance [facility] Address Unknown Phone Unavailable Allergies, Adverse [...] ronary atherosclerosis of unspecified type of vessel, havasupai or graft OTH NONSPC ABN FINDNG RAD&OTH [...] and one half) tabs once daily METHOCARBAMOL 28511164457 Active KENDALL Juarez Active SYNTHROID 112 MCG ORAL TABLET Take one tablet a day LEVOTHYROXINE SODIUM 04417775485 Active Agata Silveira MA Active TRUE METRIX AIR GLUCOSE METER DEVICE Use as directed BLOOD GLUCOSE MONITORING SUPPL 36604706006 Active Baltazar Childers MD Activ e TRUE METRIX BLOOD GLUCOSE TEST IN VITRO STRIP test blood sug ar BID Dx: E11.65 GLUCOSE BLOOD 00238816131 Active Ct Ledesma MA Active NORTRIPTYLINE HCL 50 MG ORAL CAPSULE 1 twice a day for neuropathy 2 NORTRIPTYLINE HCL 84926701002 Active Ann Martinez PA-C Act amie ASPIRIN 81 MG TBEC Take one (1) tablet by mouth daily ASPIRIN 78852968386 Active Baltazar Childers MD Active GABAPENTIN 300 MG ORAL CAPSULE 1 three times a day 201 12/03/26 GABAPENTIN 75606900464 No Longer Active Baltazar Childers MD Activ e LISINOPRIL 20 MG ORAL TABLET 1 tablet by mouth daily at night 2016 LISINOPRIL 98240702896 Active Ann Martinez PA-C Active ZITHROMAX Z-ISAIAS 250 MG ORAL TABLET Take two tablets to day and then 1 tablet daily for 4 days AZITHROMYCIN 98934574337 No Longer A ctive Baltazar Childers MD Active LANTUS SOLOSTAR 100 UNIT/ML SUBCUTANEOUS SOLUTION PEN- INJECTOR 30 units SC daily INSULIN GLARGINE 62481783315 Active Baltazar Childers MD Active AMLODIPINE BESYLATE 5 MG ORAL TABLET 1 tab daily for HTN AMLODIPINE BESYLATE 22113638285 Active Ann Martinez PA-C Active GLIPIZIDE 10 MG ORAL TABLET take 2 tablets twice daily GLIPIZIDE 45704955750 Active Baltazar Childers MD Active SUCRALFATE 1 GM ORAL TABLET 1 four times a day to coat the stoma ch SUCRALFATE 56621929638 No Longer Active Baltazar Childers MD Active PEN NEEDLES 31G X 6 MM use 1 daily INSULIN PEN NE EDLE 68716007716 Active KENDALL Juarez Active TOUJEO SOLOSTAR 300 UNIT/ML SUBCUTANEOUS SOLUTION PEN- INJECTOR 10 units SC daily INSULIN GLARGINE 06878342979 No Longer Active Rola ARGUETA Active NAPROXEN SODIUM 220 MG ORAL TABLET 1 three times a day as needed NAPROXEN SODIUM 29768051254 No Longer Active Baltazar Childers MD Active ATORVASTATIN CALCIUM 20 MG ORAL TABLET Take 1 tab daily ATORVASTATIN CALCIUM 48340126593 Active Baltazar Childers MD A ctive FUROSEMIDE 40 MG ORAL TABLET Take one by mouth daily FUROSEMIDE 30421828974 Active Baltazar Childers MD Active LISINOPRIL 20 MG ORAL TABLET Take one by mouth daily at bedtime LISINOPRIL 87733169667 No Longer Active Baltazar Childers MD Active ONETOUCH ULTRA BLUE IN VITRO STRIP Test twice a day 07/11/11 GLUCOSE BLOOD 63477333332 No Longer Active Baltazar Childers MD Acti ve TRUEPLUS LANCETS 33G Test twice a day LANCETS 9047286 8551 Active KENDLAL Juarez Active TRUEDRAW LANCING DEVICE Test twice a day LANCET DEVICES 28654399599 Active Baltazar Childers MD Active TRUETRACK BLOOD GLUCOSE w/Device KIT Test twice a day BLOOD GLUCOSE MONITORING SUPPL 43893169137 Active Baltazar Childers MD Activ e HYDROCODONE-ACETAMINOPHEN 7.5-325 MG ORAL TABLET Take 1 tab every 6-8 hours PRN HYDROCODONE-ACETAMINOPHEN 48344759529 Active Ann maciel PA-C Active GABAPENTIN 300 MG ORAL CAPSULE 1 po qd x 2 days, then 1 po BID x 2 days, then 1 po TID GABAPENTIN 66480123258 No Longer Active Baltazar Childers MD Active TRAMADOL HCL 50 MG ORAL TABLET 1 twice a day as needed for pain 201 07/27/28 TRAMADOL HCL 83518339649 Active Baltazar Childers MD Active NAPROXEN 500 MG ORAL TABLET 1 tablet by mouth twice daily NAPROXEN 78787726028 No Longer Active Baltazar Childers MD Active PROAIR HFA 108 (90 Base) MCG/ACT INHALATION AEROSOL SO LUTION 2 puffs four times a day as needed ALBUTEROL SULFATE 73861866568 Active R gilberto Childers MD Active DEPO-TESTOSTERONE 200 MG/ML INTRAMUSCULAR SOLUTION as directed TESTOSTERONE CYPIONATE 05602280609 No Longer Active Baltazar Childers MD Active LIPITOR 20 MG ORAL TABLET Take one by mouth daily in evening ATORVASTATIN CALCIUM 51169216933 No Longer Active Baltazar Childers MD Active CRESTOR 10 MG ORAL TABLET 1 by mouth every day ROSUVASTATIN CALCIUM 93066195881 No Longer Active Baltazar Childers MD Active PHENTERMINE HCL 37.5 MG ORAL TABLET Take one by mouth daily PHENTERMINE HCL 60747195936 No Longer Active Baltazar Childers MD Ac tive TIZANIDINE HCL 4 MG ORAL TABLET 1 daily as needed for muscle spa sm TIZANIDINE HCL 06433442416 No Longer Active Dawna Salazar RN Active [id number] 50-325-40 MG ORAL TABLET 1 fo ur times a day as needed for heacache [id number] 24907205198 Active Baltazar Childers MD Active SUMATRIPTAN SUCCINATE 100 MG ORAL TABLET 1 tablet by m outh at onset of migraine as needed SUMATRIPTAN SUCCINATE 76143823290 Active KENDALL Restrepo Active LORATADINE 10 MG ORAL TABLET Take one by mouth daily LORATADINE 51405879297 Active KENDALL Juarez Active OMEPRAZOLE 20 MG ORAL CAPSULE DELAYED RELEASE Take one by mouth jostin ly OMEPRAZOLE 33106808238 Active Ann Martinez PA-C Active HYDROXYZINE HCL 25 MG ORAL TABLET Take one by mouth daily HYDROXYZINE HCL 06445767049 Active Baltazar Childers MD Active ALPRAZOLAM 1 MG ORAL TABLET 1 tablet [facility] AL[facility]AM 61286448116 Active Baltazar Childers MD Active METFORMIN HCL 1000 MG ORAL TABLET Take one by mouth twice daily METFORMIN HCL 28153339282 Active Baltazar Childers MD Active TIZANIDINE HCL 4 MG ORAL TABLET 1 daily as needed for muscle spa sm TIZANIDINE HCL 4 MG ORAL TABLET 260972 TIZANIDINE HCL Inactive PHENTERMINE HCL 37.5 MG ORAL TABLET Take one by mouth daily PHENTERMINE HCL 37.5 MG ORAL TABLET 263169 PHENTERMINE HCL Inac tive CRESTOR 10 MG ORAL TABLET 1 by mouth every day CRESTOR 10 MG ORAL TABLET 508672 ROSUVASTATIN CALCIUM Inactive LIPITOR 20 MG ORAL TABLET Take one by mouth daily in evening LIPITOR 20 MG ORAL TABLET 740238 ATORVASTATIN CALCIUM Inactive DEPO-TESTOSTERONE 200 MG/ML INTRAMUSCULAR SOLUTION as directed DEPO-TESTOSTERONE 200 MG/ML INTRAMUSCULAR SOLUTION 9836407 RUFINO TOSTERONE CYPIONATE Inactive NAPROXEN 500 MG ORAL TABLET 1 tablet by mouth twice daily NAPROXEN 500 MG ORAL TABLET 712370 NAPROXEN Inactive GABAPENTIN 300 MG ORAL CAPSULE 1 po qd x 2 days, then 1 po BID x 2 days, then 1 po TID GABAPENTIN 300 MG ORAL CAPSULE 013567 GABAP ENTIN Inactive ONETOUCH ULTRA BLUE IN VITRO STRIP Test twice a day 07/11/11 ONETOUCH ULTRA BLUE IN VITRO STRIP GLUCOSE BLOOD Inact amie NAPROXEN SODIUM 220 MG ORAL TABLET 1 three times a day as needed NAPROXEN SODIUM 220 MG ORAL TABLET 048171 NAPROXEN SODI UM Inactive TOUJEO SOLOSTAR 300 UNIT/ML SUBCUTANEOUS SOLUTION PEN- INJECTOR 10 units SC daily TOUJEO SOLOSTAR 300 UNIT/ML SUBCUTANEOUS SOLUTION PEN-INJECTOR INSULIN GLARGINE Inactive SUCRALFATE 1 GM ORAL TABLET 1 four times a day to coat the stoma ch SUCRALFATE 1 GM ORAL TABLET 310494 SUCRALFATE Inac tive GABAPENTIN 300 MG ORAL CAPSULE 1 three times a day 201 12/03/26 GABAPENTIN 300 MG ORAL CAPSULE 561166 GABAPENTIN Inactive ZITHROMAX Z-ISAIAS 250 MG ORAL TABLET Take two tablets to day and then 1 tablet daily for 4 days ZITHROMAX Z-ISAIAS 250 MG ORAL TAB LET 565280 AZITHROMYCIN Inactive Immunizations Vaccine Administration Date Value Standard Floyd cription pneumococcal immunization administered Pneumovax 23 [CVX33] pneumococcal polysaccharide vaccine, 23 valent Seasonal influenza vaccine, injectable, containing preservative, for > 3 years old (Afluria, FluLaval, Fluzone, Fluvirin, Fluarix, Agriflu(>= 18 yo)) Fluzone (>3 yrs.) [NWS888] Influenza, seasonal, inject able Seasonal influenza vaccine, injectable, containing preservative, for > 3 years old (Afluria, FluLaval, Fluzone, Fluvirin, Fluarix, Agriflu(>= 18 yo)) Fluzone (>3 yrs.) [SPV165] Influenza, seasonal, inject able Vital Signs Date [...] - Chem istry sodium, serum 139 mmol/L 719-696 4676/10/03 potassium, serum 4.7 mmol/L 3.5-5.2 chloride, serum 98 mmol/L 98-107 carbon dioxide, venous blood 28.7 mmol/L 21.0-32 .0 blood glucose 218 mg/dL 65-110 calcium, serum 9.8 mg/dL 8.5-10.1 urea nitrogen, blood 19 mg/dL 7-18 creatinine, serum 1.68 mg/dL 0.60-1.30 sodium, serum 139 mmol/L 219-999 8526/06/26 potassium, serum 4.8 mmol/L 3.5-5.2 chloride, serum [...] (L) - Chemistry cholesterol, serum 209 mg/dL 931-175 7639/12/27 triglyceride, serum, fasting 329 mg/dL 30-200 HDL cholesterol, serum 56 mg/dL 32-60 LDL cholesterol, serum 87 mg/dL 0-130 TSH 3.60 m[iU]/mL 0.36-3.74 Lab Report: Thyroid Stimulating Hormone (L) - Chemistry TSH 8.56 m[iU]/mL 0.36-3.74 Office Visit: Meds Check - Toxicology drug screen, urine, qualitative negative Encounters Code Encounter Date Provider Facility CPT-93050 [id number] Vst-Est Level IV 13:49:06 Bayron Martinez PA-C [facility] CPT-68140 Level 4 Est. Patient 17:26:08 CARMELLAT Ann trujillo PA-C [facility]-21951 [id number] Vst-Est Level V 14:26:27 CDT Aneudy Childers MD [facility]-41725 Level 4 Est. Patient 17:05:37 CDT Baltazar Childers MD [facility] CPT-92362 Level 4 Est. Patient 16:21:19 [employer] Baltazar Childers MD [facility]-21038 Level 4 Est. Patient 12:25:11 CDT Baltazar Childers MD [facility] CPT-13475 Level 4 Est. Patient 14:22:31 CDT Baltazar Childers MD [facility]-90409 Level 4 Est. Patient 15:44:38 CDT Shonna Parker [facility]-38031 Level 4 Est. Patient 11:34:17 CDT Baltazar Childers MD [facility]-59962 Level 3 Est. Patient 16:40:40 CDT Baltazar Childers MD [facility] CPT-57423 Level 4 Est. Patient 10:41:24 CDT Baltazar Childers MD [facility]-41141 Level 4 Est. Patient 16:01:48 CDT Baltazar Childers MD [facility]-09294 Level 4 Est. 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 Patient 15:42:12 CDT Baltazar Childers MD [facility] CPT-22039 Level 4 Est. Patient 11:29:55 CDT Baltazar Childers MD [facility] CPT-71668 Level 4 Est. Patient 14:15:19 CDT Baltazar Childers MD [facility] CPT-92298 Level 4 Est. Patient 12:20:13 CDT Baltazar Childers MD [facility] CPT-07771 Level 4 Est. Patient 14:52:45 [employer]ING [employer]TER Baltazar Childers MD [facility] CPT-11170 Level 4 Est. Patient 14:18:34 [employer]TER Baltazra Childers MD [facility] CPT-71023 Level 4 Est. Patient 15:18:29 CDT Baltazar Childers MD [facility] CPT-82974 Level 3 Est. Patient 12:45:34 CDT Baltazar Childers MD [facility] CPT-34147 Level 3 Est. Patient 10:10:11 CDT Baltazar Childers MD [facility] CPT-64463 Level 3 Est. Patient 14:07:50 CDT Baltazar Childers MD [facility] CPT-05938 Level 4 Est. Patient 12:26:10 HA[employer]ING [employer]TER Baltazar Childers MD [facility] CPT-33989 Level 4 Est. 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 9 CPT-44655 HGBA1C - LAB USE ONLY 17:39:15 [employer]TER CPT-17211 CMP - LAB USE ONLY 17:39:14 [employer]TER CPT-83206 Venipuncture Draw Fee 17:39:14 HA[employer]ING [employer]TER CPT-28817 First Vx - Ix admin via ID I M or jet injects without counseling by physician 16:55:17 HA[employer]ING [employer]TER CPT-42043 Fluzone Quadrivalent Intramuscular Suspe nsion 0.5 ML 16:55:17 [employer]PRING [employer]TER CPT-78989 Renal Panel - LAB USE ONLY 17:39:20 CDT 201 10/31/07 CPT-68182 CBC - LAB USE ONLY 17:39:20 CDT CPT-48029 Venipuncture Draw Fee 17:39:20 CDT CPT-62458 Venipuncture Draw Fee 14:33:30 CDT CPT-17664 Renal Panel - LAB USE ONLY 14:33:30 CDT 201 10/31/07 CPT-24967 CBC - LAB USE ONLY 14:33:29 CDT CPT-11085 Venipuncture Draw Fee 14:50:21 [employer]TER CPT-11303 Immunization Single Admin 17:35:35 CDT 2014 CPT-90421 Fluzone Quadrivalent preservative free ( >=3yrs.) 17:35:35 CDT CPT-64076 Venipuncture Draw Fee 12:10:27 HA[employer]ING [employer]TER CPT-73453 Fluzone Quadrivalent Intramuscular Suspe nsion 0.5 ML 10:49:13 CDT CPT-67454 First Vx Component - Ix admi n via ID IM or jet inj without physician counseling 15:17:19 HAIRS[employer]ING SETTER CPT-14470 Pneumovax 23 15:17:19 [employer]ING SETTER CPT-29264 Pneumovax 14:52:45 [employer]TER CPT-30783 Venipuncture Draw Fee 14:06:30 [employer]TER CPT-000 Give Appropriate Flu Vaccine 14:18:34 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 2 CPT-52793 Administration single or combination vac cine inc oral 14:46:00 [employer]TER CPT-25600 Influenza split virus > age 3 14:46:00 [employer]TER CPT-OV Office Visit 19:13:16 CDT CPT-38656 Zostavax 18:41:56 CDT CPT-99461 Administration single or combination vac cine inc oral 12:56:39 CDT CPT-69892 Zoster Vaccine (Zostavax) 12:56:39 CDT 2012 CPT-73400 Venipuncture Draw Fee 10:58:57 CDT CPT-43252 Sono pelvis non OB uterus ovaries cervix 17:45:04 CDT CPT-62895 Sono retroperitoneal complete kidneys an d bladder 17:14:36 CDT CPT-OV Office Visit 14:59:38 [employer]TER CPT-J1070 Depo Testosterone 100 mg 14:50:13 CDT 03/05 CPT-03747 Abx/Therapy Injection 14:50:13 CDT CPT-00545 Administration single or combination vac cine inc oral 14:34:43 CDT CPT-67337 Influenza split virus > age 3 14:34:43 CDT CPT-J1070 Depo Testosterone 100 mg 17:37:13 CDT 01/11 CPT-46402 Abx/Therapy Injection 17:37:13 CDT CPT-98093 Venipuncture Draw Fee 16:30:13 CDT CPT-83789 Venipuncture Draw Fee 16:29:43 CDT CPT-J1070 Depo Testosterone 100 mg 14:45:38 CDT 01/11
--- OUTSIDE RECORDS SUMMARY | 2019-10-27 11:58 | XMS REPORT | Clinical Summary ---
Author Author Admin, Elba Lance [employer] Address Unknown Phone Unavailable Allergies, Adverse Reactions, [...] ronary atherosclerosis of unspecified type of vessel, stillaguamish or graft OTH NONSPC ABN FINDNG RAD&OTH [...] and one half) tabs once daily METHOCARBAMOL 88526923096 Active KENDALL Juarez Active SYNTHROID 112 MCG ORAL TABLET Take one tablet a day LEVOTHYROXINE SODIUM 39138236902 Active Agata Silveira MA Active TRUE METRIX AIR GLUCOSE METER DEVICE Use as directed BLOOD GLUCOSE MONITORING SUPPL 31465845251 Active Baltazar Childers MD Activ e TRUE METRIX BLOOD GLUCOSE TEST IN VITRO STRIP test blood sug ar BID Dx: E11.65 GLUCOSE BLOOD 19183991313 Active Ct Ledesma MA Active NORTRIPTYLINE HCL 50 MG ORAL CAPSULE 1 twice a day for neuropathy 2 NORTRIPTYLINE HCL 84146105915 Active Ann Martinez PA-C Act amie ASPIRIN 81 MG TBEC Take one (1) tablet by mouth daily ASPIRIN 19929590783 Active Baltazar Childers MD Active GABAPENTIN 300 MG ORAL CAPSULE 1 three times a day 201 12/03/26 GABAPENTIN 94754418683 No Longer Active Baltazar Childers MD Activ e LISINOPRIL 20 MG ORAL TABLET 1 tablet by mouth daily at night 2016 LISINOPRIL 32705640158 Active Ann Martinez PA-C Active ZITHROMAX Z-ISAIAS 250 MG ORAL TABLET Take two tablets to day and then 1 tablet daily for 4 days AZITHROMYCIN 09877321510 No Longer A ctive Baltazar Childers MD Active LANTUS SOLOSTAR 100 UNIT/ML SUBCUTANEOUS SOLUTION PEN- INJECTOR 30 units SC daily INSULIN GLARGINE 77514626537 Active Baltazar Childers MD Active AMLODIPINE BESYLATE 5 MG ORAL TABLET 1 tab daily for HTN AMLODIPINE BESYLATE 63891209739 Active Ann Martinez PA-C Active GLIPIZIDE 10 MG ORAL TABLET take 2 tablets twice daily GLIPIZIDE 92814680549 Active Baltazar Childers MD Active SUCRALFATE 1 GM ORAL TABLET 1 four times a day to coat the stoma ch SUCRALFATE 34080927686 No Longer Active Baltazar Childers MD Active PEN NEEDLES 31G X 6 MM use 1 daily INSULIN PEN NE EDLE 57785599175 Active KENDALL Juarez Active TOUJEO SOLOSTAR 300 UNIT/ML SUBCUTANEOUS SOLUTION PEN- INJECTOR 10 units SC daily INSULIN GLARGINE 00007547670 No Longer Active Rola ARGUETA Active NAPROXEN SODIUM 220 MG ORAL TABLET 1 three times a day as needed NAPROXEN SODIUM 65826098693 No Longer Active Baltazar Childers MD Active ATORVASTATIN CALCIUM 20 MG ORAL TABLET Take 1 tab daily ATORVASTATIN CALCIUM 45065574339 Active Baltazar Childers MD A ctive FUROSEMIDE 40 MG ORAL TABLET Take one by mouth daily FUROSEMIDE 65298390254 Active Baltazar Childers MD Active LISINOPRIL 20 MG ORAL TABLET Take one by mouth daily at bedtime LISINOPRIL 97805518963 No Longer Active Baltazar Childers MD Active ONETOUCH ULTRA BLUE IN VITRO STRIP Test twice a day 07/11/11 GLUCOSE BLOOD 95236450242 No Longer Active Baltazar Childers MD Acti ve TRUEPLUS LANCETS 33G Test twice a day LANCETS 5259475 4889 Active KENDALL Juarez Active TRUEDRAW LANCING DEVICE Test twice a day LANCET DEVICES 20897917058 Active Baltazar Childers MD Active TRUETRACK BLOOD GLUCOSE w/Device KIT Test twice a day BLOOD GLUCOSE MONITORING SUPPL 87363002673 Active Baltazar Childers MD Activ e HYDROCODONE-ACETAMINOPHEN 7.5-325 MG ORAL TABLET Take 1 tab every 6-8 hours PRN HYDROCODONE-ACETAMINOPHEN 97988691563 Active Ann maciel PA-C Active GABAPENTIN 300 MG ORAL CAPSULE 1 po qd x 2 days, then 1 po BID x 2 days, then 1 po TID GABAPENTIN 19635063696 No Longer Active Baltazar Childers MD Active TRAMADOL HCL 50 MG ORAL TABLET 1 twice a day as needed for pain 201 07/27/28 TRAMADOL HCL 35974153761 Active Baltazar Childers MD Active NAPROXEN 500 MG ORAL TABLET 1 tablet by mouth twice daily NAPROXEN 90742659848 No Longer Active Baltazar Childers MD Active PROAIR HFA 108 (90 Base) MCG/ACT INHALATION AEROSOL SO LUTION 2 puffs four times a day as needed ALBUTEROL SULFATE 70295525334 Active R gilberto Childers MD Active DEPO-TESTOSTERONE 200 MG/ML INTRAMUSCULAR SOLUTION as directed TESTOSTERONE CYPIONATE 62768478232 No Longer Active Baltazar Childers MD Active LIPITOR 20 MG ORAL TABLET Take one by mouth daily in evening ATORVASTATIN CALCIUM 23046210624 No Longer Active Baltazar Childers MD Active CRESTOR 10 MG ORAL TABLET 1 by mouth every day ROSUVASTATIN CALCIUM 31838941196 No Longer Active Baltazar Childers MD Active PHENTERMINE HCL 37.5 MG ORAL TABLET Take one by mouth daily PHENTERMINE HCL 19119363170 No Longer Active Baltazar Childers MD Ac tive TIZANIDINE HCL 4 MG ORAL TABLET 1 daily as needed for muscle spa sm TIZANIDINE HCL 37840225866 No Longer Active Dawna Salazar RN Active [id number] 50-325-40 MG ORAL TABLET 1 fo ur times a day as needed for heacache [id number] 34007345046 Active Baltazar Childers MD Active SUMATRIPTAN SUCCINATE 100 MG ORAL TABLET 1 tablet by m outh at onset of migraine as needed SUMATRIPTAN SUCCINATE 60261506562 Active KENDALL Restrepo Active LORATADINE 10 MG ORAL TABLET Take one by mouth daily LORATADINE 71067828277 Active KENDALL Juarez Active OMEPRAZOLE 20 MG ORAL CAPSULE DELAYED RELEASE Take one by mouth jostin ly OMEPRAZOLE 84320763964 Active Ann Martinez PA-C Active HYDROXYZINE HCL 25 MG ORAL TABLET Take one by mouth daily HYDROXYZINE HCL 41889881229 Active Baltazar Childers MD Active ALPRAZOLAM 1 MG ORAL TABLET 1 [facility] 95306123939 Active Baltazar Childers MD Active METFORMIN HCL 1000 MG ORAL TABLET Take one by mouth twice daily METFORMIN HCL 54795670233 Active Baltazar Childers MD Active TIZANIDINE HCL 4 MG ORAL TABLET 1 daily as needed for muscle spa sm TIZANIDINE HCL 4 MG ORAL TABLET 104471 TIZANIDINE HCL Inactive PHENTERMINE HCL 37.5 MG ORAL TABLET Take one by mouth daily PHENTERMINE HCL 37.5 MG ORAL TABLET 961467 PHENTERMINE HCL Inac tive CRESTOR 10 MG ORAL TABLET 1 by mouth every day CRESTOR 10 MG ORAL TABLET 604694 ROSUVASTATIN CALCIUM Inactive LIPITOR 20 MG ORAL TABLET Take one by mouth daily in evening LIPITOR 20 MG ORAL TABLET 720792 ATORVASTATIN CALCIUM Inactive DEPO-TESTOSTERONE 200 MG/ML INTRAMUSCULAR SOLUTION as directed DEPO-TESTOSTERONE 200 MG/ML INTRAMUSCULAR SOLUTION 7065212 RUFINO TOSTERONE CYPIONATE Inactive NAPROXEN 500 MG ORAL TABLET 1 tablet by mouth twice daily NAPROXEN 500 MG ORAL TABLET 931468 NAPROXEN Inactive GABAPENTIN 300 MG ORAL CAPSULE 1 po qd x 2 days, then 1 po BID x 2 days, then 1 po TID GABAPENTIN 300 MG ORAL CAPSULE 157648 GABAP ENTIN Inactive ONETOUCH ULTRA BLUE IN VITRO STRIP Test twice a day 07/11/11 ONETOUCH ULTRA BLUE IN VITRO STRIP GLUCOSE BLOOD Inact amie NAPROXEN SODIUM 220 MG ORAL TABLET 1 three times a day as needed NAPROXEN SODIUM 220 MG ORAL TABLET 140094 NAPROXEN SODI UM Inactive TOUJEO SOLOSTAR 300 UNIT/ML SUBCUTANEOUS SOLUTION PEN- INJECTOR 10 units SC daily TOUJEO SOLOSTAR 300 UNIT/ML SUBCUTANEOUS SOLUTION PEN-INJECTOR INSULIN GLARGINE Inactive SUCRALFATE 1 GM ORAL TABLET 1 four times a day to coat the stoma ch SUCRALFATE 1 GM ORAL TABLET 655715 SUCRALFATE Inac tive GABAPENTIN 300 MG ORAL CAPSULE 1 three times a day 201 12/03/26 GABAPENTIN 300 MG ORAL CAPSULE 760612 GABAPENTIN Inactive ZITHROMAX Z-ISAIAS 250 MG ORAL TABLET Take two tablets to day and then 1 tablet daily for 4 days ZITHROMAX Z-ISAIAS 250 MG ORAL TAB LET 338306 AZITHROMYCIN Inactive Immunizations Vaccine Administration Date Value Standard Floyd cription pneumococcal immunization administered Pneumovax 23 [CVX33] pneumococcal polysaccharide vaccine, 23 valent Seasonal influenza vaccine, injectable, containing preservative, for > 3 years old (Afluria, FluLaval, Fluzone, Fluvirin, Fluarix, Agriflu(>= 18 yo)) Fluzone (>3 yrs.) [CYV335] Influenza, seasonal, inject able Seasonal influenza vaccine, injectable, containing preservative, for > 3 years old (Afluria, FluLaval, Fluzone, Fluvirin, Fluarix, Agriflu(>= 18 yo)) Fluzone (>3 yrs.) [BUG560] Influenza, seasonal, inject able Vital Signs Date [...] 4.7 mmol/L 3.5-5.2 sodium, serum 139 mmol/L 477-878 8871/06/26 calcium, serum 9.7 mg/dL 8.5-10.1 urea nitrogen, blood 31 mg/dL 7-18 creatinine, serum 1.97 mg/dL 0.60-1.30 sodium, serum 139 mmol/L 061-333 8264/06/26 potassium, serum 4.8 mmol/L 3.5-5.2 chloride, serum 102 mmol/L 98-107 carbon dioxide, venous blood 29.1 mmol/L 21.0-32 .0 blood glucose 179 mg/dL 65-95 Lab Report: HGBA1C - Chemistry hemoglobin A1C, blood, as % of total hemoglobin 7.6 % 4.3-6.0 hemoglobin A1C, blood, as % of total hemoglobin 7.4 % 4.3-6.0 hemoglobin A1C, blood, as % of total hemoglobin 8.2 % 4.3-6.0 Lab Report: Lipid Panel, Thyroid Stimula ting Hormone (L) - Chemistry TSH 3.60 m[iU]/mL 0.36-3.74 LDL cholesterol, serum 87 mg/dL 0-130 HDL cholesterol, serum 56 mg/dL 32-60 triglyceride, serum, fasting 329 mg/dL 30-200 cholesterol, serum 209 mg/dL 130-200 Lab Report: Thyroid Stimulating Hormone (L) - Chemistry TSH 8.56 m[iU]/mL 0.36-3.74 Office Visit: Meds Check - Toxicology drug screen, urine, qualitative negative Encounters Code Encounter Date Provider Facility CPT-19450 [id number] Vst-Est Level IV 13:49:06 Bayron Martinez PA-C [facility] CPT-78922 Level 4 Est. Patient 17:26:08 CARMELLAT Ann trujillo PA-C [facility]-14602 [id number] Vst-Est Level V 14:26:27 CDT Aneudy Childers MD [facility]-28756 Level 4 Est. Patient 17:05:37 CDT Baltazar Childers MD [facility] CPT-21195 Level 4 Est. Patient 16:21:19 COMMERCIAL INTELLIGENCE MANAGER Baltazar Childers MD [facility]-06797 Level 4 Est. Patient 12:25:11 CDT Baltazar Childers MD [facility] CPT-04415 Level 4 Est. Patient 14:22:31 CDT Baltazar Childers MD [facility]-31410 Level 4 Est. Patient 15:44:38 CDT Shonna Parker [facility]-68441 Level 4 Est. Patient 11:34:17 CDT Baltazar Childers MD [facility]-24349 Level 3 Est. Patient 16:40:40 CDT Baltazar Childers MD [facility] CPT-55704 Level 4 Est. Patient 10:41:24 CDT Baltazar Childers MD [facility]-37156 Level 4 Est. Patient 16:01:48 CDT Baltazar Childers MD [facility]-46191 Level 4 Est. Patient 16:54:07 COMMERCIAL INTELLIGENCE MANAGER Baltazar Childers MD [facility]-72933 Level 4 Est. Patient 15:42:12 CDT Baltazar Childers MD [facility] CPT-42396 Level 4 Est. Patient 11:29:55 CDT Baltazar Childers MD [facility] CPT-15464 Level 4 Est. Patient 14:15:19 CDT Baltazar Childers MD [facility] CPT-50564 Level 4 Est. Patient 12:20:13 CDT Baltazar Childers MD [facility] CPT-10852 Level 4 Est. Patient 14:52:45 COMMERCIAL INTELLIGENCE MANAGER Baltazar Childers MD [facility] CPT-91027 Level 4 Est. Patient 14:18:34 COMMERCIAL INTELLIGENCE MANAGER Baltazar Childers MD [facility] CPT-41414 Level 4 Est. Patient 15:18:29 CDT Baltazar Childers MD [facility] CPT-88831 Level 3 Est. Patient 12:45:34 CDT Baltazar Childers MD [facility] CPT-57175 Level 3 Est. Patient 10:10:11 CDT Baltazar Childers MD [facility] CPT-06768 Level 3 Est. Patient 14:07:50 CDT Baltazar Childers MD [facility] CPT-43444 Level 4 Est. Patient 12:26:10 COMMERCIAL INTELLIGENCE MANAGER Baltazar Childers MD [facility] CPT-27412 Level 4 Est. Patient 14:45:38 CDT Baltazar Childers MD [facility] CPT-67977 Level 4 New Patient 12:30:48 CDT Baltazar hinton MD [facility] Procedures Code Procedure Name Date Entry Date Standard Desc ription CPT-000 Give Appropriate Flu Vaccine 12:25:14 CDT 2 CPT-78280 First Vx - Ix admin via ID I M or jet injects without counseling by physician 13:08:59 CDT CPT-58623 Fluzone Quadrivalent Intramuscular Suspe nsion 0.5 ML 13:08:59 CDT CPT-08247 Venipuncture Draw Fee 12:04:12 CDT CPT-00101 Lipid - LAB USE ONLY 17:39:15 COMMERCIAL INTELLIGENCE MANAGER 9 CPT-07233 HGBA1C - LAB USE ONLY 17:39:15 COMMERCIAL INTELLIGENCE MANAGER CPT-81676 CMP - LAB USE ONLY 17:39:14 COMMERCIAL INTELLIGENCE MANAGER CPT-29863 Venipuncture Draw Fee 17:39:14 COMMERCIAL INTELLIGENCE MANAGER CPT-50420 First Vx - Ix admin via ID I M or jet injects without counseling by physician 16:55:17 COMMERCIAL INTELLIGENCE MANAGER CPT-17591 Fluzone Quadrivalent Intramuscular Suspe nsion 0.5 ML 16:55:17 COMMERCIAL INTELLIGENCE MANAGER CPT-58536 Renal Panel - LAB USE ONLY 17:39:20 CDT 201 10/31/07 CPT-18520 CBC - LAB USE ONLY 17:39:20 CDT CPT-38618 Venipuncture Draw Fee 17:39:20 CDT CPT-37654 Venipuncture Draw Fee 14:33:30 CDT CPT-36043 Renal Panel - LAB USE ONLY 14:33:30 CDT 201 10/31/07 CPT-44326 CBC - LAB USE ONLY 14:33:29 CDT CPT-23279 Venipuncture Draw Fee 14:50:21 COMMERCIAL INTELLIGENCE MANAGER CPT-56349 Immunization Single Admin 17:35:35 CDT 2014 CPT-89899 Fluzone Quadrivalent preservative free ( >=3yrs.) 17:35:35 CDT CPT-87434 Venipuncture Draw Fee 12:10:27 COMMERCIAL INTELLIGENCE MANAGER CPT-22515 Fluzone Quadrivalent Intramuscular Suspe nsion 0.5 ML 10:49:13 CDT CPT-57232 First Vx Component - Ix admi n via ID IM or jet inj without physician counseling 15:17:19 COMMERCIAL INTELLIGENCE MANAGER CPT-32039 Pneumovax 23 15:17:19 COMMERCIAL INTELLIGENCE MANAGER CPT-80170 Pneumovax 14:52:45 COMMERCIAL INTELLIGENCE MANAGER CPT-56082 Venipuncture Draw Fee 14:06:30 COMMERCIAL INTELLIGENCE MANAGER CPT-000 Give Appropriate Flu Vaccine 14:18:34 COMMERCIAL INTELLIGENCE MANAGER 2 CPT-24944 Administration single or combination vac cine inc oral 14:46:00 COMMERCIAL INTELLIGENCE MANAGER CPT-78481 Influenza split virus > age 3 14:46:00 COMMERCIAL INTELLIGENCE MANAGER CPT-OV Office Visit 19:13:16 CDT CPT-05809 Zostavax 18:41:56 CDT CPT-89747 Administration single or combination vac cine inc oral 12:56:39 CDT CPT-09328 Zoster Vaccine (Zostavax) 12:56:39 CDT 2012 CPT-52454 Venipuncture Draw Fee 10:58:57 CDT CPT-01636 Sono pelvis non OB uterus ovaries cervix 17:45:04 CDT CPT-30535 Sono retroperitoneal complete kidneys an d bladder 17:14:36 CDT CPT-OV Office Visit 14:59:38 COMMERCIAL INTELLIGENCE MANAGER CPT-J1070 Depo Testosterone 100 mg 14:50:13 CDT 03/05 CPT-74517 Abx/Therapy Injection 14:50:13 CDT CPT-33470 Administration single or combination vac cine inc oral 14:34:43 CDT CPT-48394 Influenza split virus > age 3 14:34:43 CDT CPT-J1070 Depo Testosterone 100 mg 17:37:13 CDT 01/11 CPT-18962 Abx/Therapy Injection 17:37:13 CDT CPT-80593 Venipuncture Draw Fee 16:30:13 CDT CPT-45801 Venipuncture Draw Fee 16:29:43 CDT CPT-J1070 Depo Testosterone 100 mg 14:45:38 CDT 01/11
--- OUTSIDE RECORDS SUMMARY | 2019-10-27 11:58 | XMS REPORT | Clinical Summary ---
Author Author Admin, Elba Lance Michelle [facility] Address Unknown Phone Unavailable Allergies, [...] and one half) tabs once daily METHOCARBAMOL [id number] Active KENDALL Juarez Active SYNTHROID 112 MCG ORAL TABLET Take one tablet a day LEVOTHYROXINE SODIUM 80881670169 Active Agata Silveira MA Active TRUE METRIX AIR GLUCOSE METER DEVICE Use as directed BLOOD GLUCOSE MONITORING SUPPL 80795184500 Active Baltazar Childers MD Activ e TRUE METRIX BLOOD GLUCOSE TEST IN VITRO STRIP test blood sug ar BID Dx: E11.65 GLUCOSE BLOOD 82422167674 Active Ct Ledesma MA Active NORTRIPTYLINE HCL 50 MG ORAL CAPSULE 1 twice a day for neuropathy 2 NORTRIPTYLINE HCL 02241839918 Active Ann Martinez PA-C Act amie ASPIRIN 81 MG TBEC Take one (1) tablet by mouth daily ASPIRIN 39555909033 Active Baltazar Childers MD Active GABAPENTIN 300 MG ORAL CAPSULE 1 three times a day 201 12/03/26 GABAPENTIN 00880249636 No Longer Active Baltazar Childers MD Activ e LISINOPRIL 20 MG ORAL TABLET 1 tablet by mouth daily at night 2016 LISINOPRIL 31495989415 Active Ann Martinez PA-C Active ZITHROMAX Z-ISAIAS 250 MG ORAL TABLET Take two tablets to day and then 1 tablet daily for 4 days AZITHROMYCIN 19651330360 No Longer A ctive Baltazar Childers MD Active LANTUS SOLOSTAR 100 UNIT/ML SUBCUTANEOUS SOLUTION PEN- INJECTOR 30 units SC daily INSULIN GLARGINE 28604085556 Active Baltazar Childers MD Active AMLODIPINE BESYLATE 5 MG ORAL TABLET 1 tab daily for HTN AMLODIPINE BESYLATE 33828880852 Active Ann Martinez PA-C Active GLIPIZIDE 10 MG ORAL TABLET take 2 tablets twice daily GLIPIZIDE 71342106349 Active Baltazar Childers MD Active SUCRALFATE 1 GM ORAL TABLET 1 four times a day to coat the stoma ch SUCRALFATE 30501288830 No Longer Active Baltazar Childers MD Active PEN NEEDLES 31G X 6 MM use 1 daily INSULIN PEN NE EDLE 60454369093 Active KENDALL Juarez Active TOUJEO SOLOSTAR 300 UNIT/ML SUBCUTANEOUS SOLUTION PEN- INJECTOR 10 units SC daily INSULIN GLARGINE 60827235147 No Longer Active Rola ARGUETA Active NAPROXEN SODIUM 220 MG ORAL TABLET 1 three times a day as needed NAPROXEN SODIUM 13079887619 No Longer Active Baltazar Childers MD Active ATORVASTATIN CALCIUM 20 MG ORAL TABLET Take 1 tab daily ATORVASTATIN CALCIUM 75344132425 Active Baltazar Childers MD A ctive FUROSEMIDE 40 MG ORAL TABLET Take one by mouth daily FUROSEMIDE 23938452229 Active Baltazar Childers MD Active LISINOPRIL 20 MG ORAL TABLET Take one by mouth daily at bedtime LISINOPRIL 30601061780 No Longer Active Baltazar Childers MD Active ONETOUCH ULTRA BLUE IN VITRO STRIP Test twice a day 07/11/11 GLUCOSE BLOOD 09523492345 No Longer Active Baltazar Childers MD Acti ve TRUEPLUS LANCETS 33G Test twice a day LANCETS 9737658 3331 Active KENDALL Juarez Active TRUEDRAW LANCING DEVICE Test twice a day LANCET DEVICES 89780954812 Active Baltazar Childers MD Active TRUETRACK BLOOD GLUCOSE w/Device KIT Test twice a day BLOOD GLUCOSE MONITORING SUPPL 54760905848 Active Baltazar Childers MD Activ e HYDROCODONE-ACETAMINOPHEN 7.5-325 MG ORAL TABLET Take 1 tab every 6-8 hours PRN HYDROCODONE-ACETAMINOPHEN 41753408685 Active Ann maciel PA-C Active GABAPENTIN 300 MG ORAL CAPSULE 1 po qd x 2 days, then 1 po BID x 2 days, then 1 po TID GABAPENTIN 88718746409 No Longer Active Baltazar Childers MD Active TRAMADOL HCL 50 MG ORAL TABLET 1 twice a day as needed for pain 201 07/27/28 TRAMADOL HCL 42084844395 Active Baltazar Childers MD Active NAPROXEN 500 MG ORAL TABLET 1 tablet by mouth twice daily NAPROXEN 73937311135 No Longer Active Baltazar Childers MD Active PROAIR HFA 108 (90 Base) MCG/ACT INHALATION AEROSOL SO LUTION 2 puffs four times a day as needed ALBUTEROL SULFATE 85955241448 Active R gilberto Childers MD Active DEPO-TESTOSTERONE 200 MG/ML INTRAMUSCULAR SOLUTION as directed TESTOSTERONE CYPIONATE 69963744482 No Longer Active Baltazar Childers MD Active LIPITOR 20 MG ORAL TABLET Take one by mouth daily in evening ATORVASTATIN CALCIUM 18294463665 No Longer Active Baltazar Childers MD Active CRESTOR 10 MG ORAL TABLET 1 by mouth every day ROSUVASTATIN CALCIUM 40744632304 No Longer Active Baltazar Childers MD Active PHENTERMINE HCL 37.5 MG ORAL TABLET Take one by mouth daily PHENTERMINE HCL 14671929578 No Longer Active Baltazar Childers MD Ac tive TIZANIDINE HCL 4 MG ORAL TABLET 1 daily as needed for muscle spa sm TIZANIDINE HCL 60363115967 No Longer Active Dawna Salazar RN Active [id number] 50-325-40 MG ORAL TABLET 1 fo ur times a day as needed for heacache [id number] 96762338970 Active Baltazar Childers MD Active SUMATRIPTAN SUCCINATE 100 MG ORAL TABLET 1 tablet by m outh at onset of migraine as needed SUMATRIPTAN SUCCINATE 11656980549 Active KENDALL Restrepo Active LORATADINE 10 MG ORAL TABLET Take one by mouth daily LORATADINE 69894804696 Active KENDALL Juarez Active OMEPRAZOLE 20 MG ORAL CAPSULE DELAYED RELEASE Take one by mouth jostin ly OMEPRAZOLE 55368701961 Active Ann Martinez PA-C Active HYDROXYZINE HCL 25 MG ORAL TABLET Take one by mouth daily HYDROXYZINE HCL 36421154380 Active Baltazar Childers MD Active ALPRAZOLAM 1 MG ORAL TABLET 1 tablet [facility] 99618389390 Active Baltazar Childers MD Active METFORMIN HCL 1000 MG ORAL TABLET Take one by mouth twice daily METFORMIN HCL 88103436677 Active Baltazar Childers MD Active TIZANIDINE HCL 4 MG ORAL TABLET 1 daily as needed for muscle spa sm TIZANIDINE HCL 4 MG ORAL TABLET 323957 TIZANIDINE HCL Inactive PHENTERMINE HCL 37.5 MG ORAL TABLET Take one by mouth daily PHENTERMINE HCL 37.5 MG ORAL TABLET 365594 PHENTERMINE HCL Inac tive CRESTOR 10 MG ORAL TABLET 1 by mouth every day CRESTOR 10 MG ORAL TABLET 891660 ROSUVASTATIN CALCIUM Inactive LIPITOR 20 MG ORAL TABLET Take one by mouth daily in evening LIPITOR 20 MG ORAL TABLET 507108 ATORVASTATIN CALCIUM Inactive DEPO-TESTOSTERONE 200 MG/ML INTRAMUSCULAR SOLUTION as directed DEPO-TESTOSTERONE 200 MG/ML INTRAMUSCULAR SOLUTION 8548240 RUFINO TOSTERONE CYPIONATE Inactive NAPROXEN 500 MG ORAL TABLET 1 tablet by mouth twice daily NAPROXEN 500 MG ORAL TABLET 589438 NAPROXEN Inactive GABAPENTIN 300 MG ORAL CAPSULE 1 po qd x 2 days, then 1 po BID x 2 days, then 1 po TID GABAPENTIN 300 MG ORAL CAPSULE 621763 GABAP ENTIN Inactive ONETOUCH ULTRA BLUE IN VITRO STRIP Test twice a day 07/11/11 ONETOUCH ULTRA BLUE IN VITRO STRIP GLUCOSE BLOOD Inact amie NAPROXEN SODIUM 220 MG ORAL TABLET 1 three times a day as needed NAPROXEN SODIUM 220 MG ORAL TABLET 638569 NAPROXEN SODI UM Inactive TOUJEO SOLOSTAR 300 UNIT/ML SUBCUTANEOUS SOLUTION PEN- INJECTOR 10 units SC daily TOUJEO SOLOSTAR 300 UNIT/ML SUBCUTANEOUS SOLUTION PEN-INJECTOR INSULIN GLARGINE Inactive SUCRALFATE 1 GM ORAL TABLET 1 four times a day to coat the stoma ch SUCRALFATE 1 GM ORAL TABLET 748610 SUCRALFATE Inac tive GABAPENTIN 300 MG ORAL CAPSULE 1 three times a day 201 12/03/26 GABAPENTIN 300 MG ORAL CAPSULE 295704 GABAPENTIN Inactive ZITHROMAX Z-ISAIAS 250 MG ORAL TABLET Take two tablets to day and then 1 tablet daily for 4 days ZITHROMAX Z-ISAIAS 250 MG ORAL TAB LET 485046 AZITHROMYCIN Inactive Immunizations Vaccine Administration Date Value Standard Floyd cription pneumococcal immunization administered Pneumovax 23 [CVX33] pneumococcal polysaccharide vaccine, 23 valent Seasonal influenza vaccine, injectable, containing preservative, for > 3 years old (Afluria, FluLaval, Fluzone, Fluvirin, Fluarix, Agriflu(>= 18 yo)) Fluzone (>3 yrs.) [PQN344] Influenza, seasonal, inject able Seasonal influenza vaccine, injectable, containing preservative, for > 3 years old (Afluria, FluLaval, Fluzone, Fluvirin, Fluarix, Agriflu(>= 18 yo)) Fluzone (>3 yrs.) [PIM665] Influenza, seasonal, inject able Vital Signs Date [...] - Chem istry sodium, serum 139 mmol/L 214-563 3059/10/03 potassium, serum 4.7 mmol/L 3.5-5.2 chloride, serum 98 mmol/L 98-107 carbon dioxide, venous blood 28.7 mmol/L 21.0-32 .0 blood glucose 218 mg/dL 65-110 calcium, serum 9.8 mg/dL 8.5-10.1 urea nitrogen, blood 19 mg/dL 7-18 creatinine, serum 1.68 mg/dL 0.60-1.30 sodium, serum 139 mmol/L 171-016 0969/06/26 potassium, serum 4.8 mmol/L 3.5-5.2 chloride, serum [...] (L) - Chemistry cholesterol, serum 209 mg/dL 726-991 4758/12/27 triglyceride, serum, fasting 329 mg/dL 30-200 HDL cholesterol, serum 56 mg/dL 32-60 LDL cholesterol, serum 87 mg/dL 0-130 TSH 3.60 m[iU]/mL 0.36-3.74 Lab Report: Thyroid Stimulating Hormone (L) - Chemistry TSH 8.56 m[iU]/mL 0.36-3.74 Office Visit: Meds Check - Toxicology drug screen, urine, qualitative negative Encounters Code Encounter Date Provider Facility CPT-46655 Level 4 Est. Patient 17:26:08 CDT Ann trujillo PA-C [facility] CPT-30896 [id number] Vst-Est Level V 14:26:27 CDT Aneudy Childers MD [facility] CPT-58369 Level 4 Est. Patient 17:05:37 CDT Baltazar Childers MD [facility] CPT-99034 Level 4 Est. Patient 16:21:19 ESTATE TAX EXAMINER Baltazar Childers MD [facility] CPT-27365 Level 4 Est. Patient 12:25:11 CDT Baltazar Childers MD [facility] CPT-08674 Level 4 Est. Patient 14:22:31 CDT Baltazar Childers MD [facility] CPT-49922 Level 4 Est. Patient 15:44:38 CDT Shonna Parker APRN [facility]-93266 Level 4 Est. Patient 11:34:17 CDT Baltazar Childers MD [facility]-72130 Level 3 Est. Patient 16:40:40 CDT Baltazar Childers MD [facility]-31171 Level 4 Est. Patient 10:41:24 CDT Baltazar Childers MD [facility]-92946 Level 4 Est. Patient 16:01:48 CDT Baltazar Childers MD [facility]-73789 Level 4 Est. Patient 16:54:07 ESTATE TAX EXAMINER Baltazar Childers MD [facility]-90079 Level 4 Est. Patient 15:42:12 CDT Baltazar Childers MD [facility]-61957 Level 4 Est. Patient 11:29:55 CDT Baltazar Childers MD [facility]-76289 Level 4 Est. Patient 14:15:19 CDT Baltazar Childers MD [facility] CPT-57859 Level 4 Est. Patient 12:20:13 CDT Baltazar Childers MD [facility]-62200 Level 4 Est. Patient 14:52:45 ESTATE TAX EXAMINER Baltazar Childers MD [facility]-70558 Level 4 Est. Patient 14:18:34 ESTATE TAX EXAMINER Baltazar Childers MD [facility]-91428 Level 4 Est. Patient 15:18:29 CDT Baltazar Childers MD [facility]-39213 Level 3 Est. Patient 12:45:34 CDT Baltazar Childers MD [facility]-85906 Level 3 Est. Patient 10:10:11 CDT Baltazar Childers MD [facility]-05301 Level 3 Est. Patient 14:07:50 CDT Baltazar Childers MD [facility] CPT-82931 Level 4 Est. Patient 12:26:10 ESTATE TAX EXAMINER Baltazar Childers MD [facility] CPT-59190 Level 4 Est. Patient 14:45:38 CDT Baltazar Childers MD [facility] CPT-82345 Level 4 New Patient 12:30:48 CDT Baltazar hinton MD [facility] Procedures Code Procedure Name Date Entry Date Standard Desc ription CPT-000 Give Appropriate Flu Vaccine 12:25:14 CDT 2 CPT-86786 First Vx - Ix admin via ID I M or jet injects without counseling by physician 13:08:59 CDT CPT-80902 Fluzone Quadrivalent Intramuscular Suspe nsion 0.5 ML 13:08:59 CDT CPT-46458 Venipuncture Draw Fee 12:04:12 CDT CPT-37057 Lipid - LAB USE ONLY 17:39:15 ESTATE TAX EXAMINER 9 CPT-01149 HGBA1C - LAB USE ONLY 17:39:15 ESTATE TAX EXAMINER CPT-99064 CMP - LAB USE ONLY 17:39:14 ESTATE TAX EXAMINER CPT-90982 Venipuncture Draw Fee 17:39:14 ESTATE TAX EXAMINER CPT-38281 First Vx - Ix admin via ID I M or jet injects without counseling by physician 16:55:17 ESTATE TAX EXAMINER CPT-64887 Fluzone Quadrivalent Intramuscular Suspe nsion 0.5 ML 16:55:17 ESTATE TAX EXAMINER CPT-46073 Renal Panel - LAB USE ONLY 17:39:20 CDT 201 10/31/07 CPT-26064 CBC - LAB USE ONLY 17:39:20 CDT CPT-08618 Venipuncture Draw Fee 17:39:20 CDT CPT-42059 Venipuncture Draw Fee 14:33:30 CDT CPT-99507 Renal Panel - LAB USE ONLY 14:33:30 CDT 201 10/31/07 CPT-26867 CBC - LAB USE ONLY 14:33:29 CDT CPT-36099 Venipuncture Draw Fee 14:50:21 ESTATE TAX EXAMINER CPT-64509 Immunization Single Admin 17:35:35 CDT 2014 CPT-03336 Fluzone Quadrivalent preservative free ( >=3yrs.) 17:35:35 CDT CPT-94099 Venipuncture Draw Fee 12:10:27 ESTATE TAX EXAMINER CPT-42159 Fluzone Quadrivalent Intramuscular Suspe nsion 0.5 ML 10:49:13 CDT CPT-92298 First Vx Component - Ix admi n via ID IM or jet inj without physician counseling 15:17:19 ESTATE TAX EXAMINER CPT-09178 Pneumovax 23 15:17:19 ESTATE TAX EXAMINER CPT-95998 Pneumovax 14:52:45 ESTATE TAX EXAMINER CPT-26554 Venipuncture Draw Fee 14:06:30 ESTATE TAX EXAMINER CPT-000 Give Appropriate Flu Vaccine 14:18:34 ESTATE TAX EXAMINER 2 CPT-78171 Administration single or combination vac cine inc oral 14:46:00 ESTATE TAX EXAMINER CPT-53613 Influenza split virus > age 3 14:46:00 ESTATE TAX EXAMINER CPT-OV Office Visit 19:13:16 CDT CPT-64624 Zostavax 18:41:56 CDT CPT-59057 Administration single or combination vac cine inc oral 12:56:39 CDT CPT-07689 Zoster Vaccine (Zostavax) 12:56:39 CDT 2012 CPT-47741 Venipuncture Draw Fee 10:58:57 CDT CPT-92196 Sono pelvis non OB uterus ovaries cervix 17:45:04 CDT CPT-52007 Sono retroperitoneal complete kidneys an d bladder 17:14:36 CDT CPT-OV Office Visit 14:59:38 ESTATE TAX EXAMINER CPT-J1070 Depo Testosterone 100 mg 14:50:13 CDT 03/05 CPT-20131 Abx/Therapy Injection 14:50:13 CDT CPT-82247 Administration single or combination vac cine inc oral 14:34:43 CDT CPT-37396 Influenza split virus > age 3 14:34:43 CDT CPT-J1070 Depo Testosterone 100 mg 17:37:13 CDT 01/11 CPT-88606 Abx/Therapy Injection 17:37:13 CDT CPT-22445 Venipuncture Draw Fee 16:30:13 CDT CPT-46315 Venipuncture Draw Fee 16:29:43 CDT CPT-J1070 Depo Testosterone 100 mg 14:45:38 CDT 01/11
--- OUTSIDE RECORDS SUMMARY | 2019-10-27 11:59 | XMS REPORT | Clinical Summary ---
Author Author Admin, Elba Lance [employer] Address Unknown Phone Unavailable Allergies, Adverse 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 [employer]ER Benign neoplasm of colon PERIPHERAL NEUROPATHY 356.9 [...] of unspecified type of vessel, [place] or graft OTH NONSPC ABN FINDNG RAD&OTH [...] and one half) tabs once daily METHOCARBAMOL 70327406189 Active KENDALL Juarez Active SYNTHROID 112 MCG ORAL TABLET Take one tablet a day LEVOTHYROXINE SODIUM 34932690252 Active Agata Silveira MA Active TRUE METRIX AIR GLUCOSE METER DEVICE Use as directed BLOOD GLUCOSE MONITORING SUPPL 90897210608 Active Baltazar Childers MD Activ e TRUE METRIX BLOOD GLUCOSE TEST IN VITRO STRIP test blood sug ar BID Dx: E11.65 GLUCOSE BLOOD 76374591405 Active Ct Ledesma MA Active NORTRIPTYLINE HCL 50 MG ORAL CAPSULE 1 twice a day for neuropathy 2 NORTRIPTYLINE HCL 93651791650 Active Ann Martinez PA-C Act amie ASPIRIN 81 MG TBEC Take one (1) tablet by mouth daily ASPIRIN 25999922903 Active Baltazar Childers MD Active GABAPENTIN 300 MG ORAL CAPSULE 1 three times a day 201 12/03/26 GABAPENTIN 88690975017 No Longer Active Baltazar Childers MD Activ e LISINOPRIL 20 MG ORAL TABLET 1 tablet by mouth daily at night 2016 LISINOPRIL 11400685711 Active Ann Martinez PA-C Active ZITHROMAX Z-ISAIAS 250 MG ORAL TABLET Take two tablets to day and then 1 tablet daily for 4 days AZITHROMYCIN 66116079924 No Longer A ctive Baltazar Childers MD Active LANTUS SOLOSTAR 100 UNIT/ML SUBCUTANEOUS SOLUTION PEN- INJECTOR 30 units SC daily INSULIN GLARGINE 74701197680 Active Baltazar Childers MD Active AMLODIPINE BESYLATE 5 MG ORAL TABLET 1 tab daily for HTN AMLODIPINE BESYLATE 88851892709 Active Ann Martinez PA-C Active GLIPIZIDE 10 MG ORAL TABLET take 2 tablets twice daily GLIPIZIDE 54484909826 Active Baltazar Childers MD Active SUCRALFATE 1 GM ORAL TABLET 1 four times a day to coat the stoma ch SUCRALFATE 58195831252 No Longer Active Baltazar Childers MD Active PEN NEEDLES 31G X 6 MM use 1 daily INSULIN PEN NE EDLE 28065775490 Active KENDALL Juarez Active TOUJEO SOLOSTAR 300 UNIT/ML SUBCUTANEOUS SOLUTION PEN- INJECTOR 10 units SC daily INSULIN GLARGINE 46532300199 No Longer Active Rola ARGUETA Active NAPROXEN SODIUM 220 MG ORAL TABLET 1 three times a day as needed NAPROXEN SODIUM 90973306444 No Longer Active Baltazar Childers MD Active ATORVASTATIN CALCIUM 20 MG ORAL TABLET Take 1 tab daily ATORVASTATIN CALCIUM 25788111421 Active Baltazar Childers MD A ctive FUROSEMIDE 40 MG ORAL TABLET Take one by mouth daily FUROSEMIDE 94421333130 Active Baltazar Childers MD Active LISINOPRIL 20 MG ORAL TABLET Take one by mouth daily at bedtime LISINOPRIL 07615657350 No Longer Active Baltazar Childers MD Active ONETOUCH ULTRA BLUE IN VITRO STRIP Test twice a day 07/11/11 GLUCOSE BLOOD 16063643246 No Longer Active Baltazar Childers MD Acti ve TRUEPLUS LANCETS 33G Test twice a day LANCETS 2371266 4989 Active KENDALL Juarez Active TRUEDRAW LANCING DEVICE Test twice a day LANCET DEVICES 99683352322 Active Baltazar Childers MD Active TRUETRACK BLOOD GLUCOSE w/Device KIT Test twice a day BLOOD GLUCOSE MONITORING SUPPL 68950174951 Active Baltazar Childers MD Activ e HYDROCODONE-ACETAMINOPHEN 7.5-325 MG ORAL TABLET Take 1 tab every 6-8 hours PRN HYDROCODONE-ACETAMINOPHEN 80643201464 Active Ann maciel PA-C Active GABAPENTIN 300 MG ORAL CAPSULE 1 po qd x 2 days, then 1 po BID x 2 days, then 1 po TID GABAPENTIN 74752639593 No Longer Active Baltazar Childers MD Active TRAMADOL HCL 50 MG ORAL TABLET 1 twice a day as needed for pain 201 07/27/28 TRAMADOL HCL 81115907739 Active Baltazar Childers MD Active NAPROXEN 500 MG ORAL TABLET 1 tablet by mouth twice daily NAPROXEN 15027230924 No Longer Active Baltazar Childers MD Active PROAIR HFA 108 (90 Base) MCG/ACT INHALATION AEROSOL SO LUTION 2 puffs four times a day as needed ALBUTEROL SULFATE 20025285556 Active R gilberto Childers MD Active DEPO-TESTOSTERONE 200 MG/ML INTRAMUSCULAR SOLUTION as directed TESTOSTERONE CYPIONATE 45319673729 No Longer Active Baltazar Childers MD Active LIPITOR 20 MG ORAL TABLET Take one by mouth daily in evening ATORVASTATIN CALCIUM 78998835554 No Longer Active Baltazar Childers MD Active CRESTOR 10 MG ORAL TABLET 1 by mouth every day ROSUVASTATIN CALCIUM 98395296401 No Longer Active Baltazar Childers MD Active PHENTERMINE HCL 37.5 MG ORAL TABLET Take one by mouth daily PHENTERMINE HCL 95587094814 No Longer Active Baltazar Childers MD Ac tive TIZANIDINE HCL 4 MG ORAL TABLET 1 daily as needed for muscle spa sm TIZANIDINE HCL 74937323904 No Longer Active Dawna Salazar RN Active [id number] 50-325-40 MG ORAL TABLET 1 fo ur times a day as needed for heacache [id number] 83198592407 Active Baltazar Childers MD Active SUMATRIPTAN SUCCINATE 100 MG ORAL TABLET 1 tablet by m outh at onset of migraine as needed SUMATRIPTAN SUCCINATE 83107456641 Active KENDALL Restrepo Active LORATADINE 10 MG ORAL TABLET Take one by mouth daily LORATADINE 92221281989 Active KENDALL Juarez Active OMEPRAZOLE 20 MG ORAL CAPSULE DELAYED RELEASE Take one by mouth jostin ly OMEPRAZOLE 10759275492 Active Ann Martinez PA-C Active HYDROXYZINE HCL 25 MG ORAL TABLET Take one by mouth daily HYDROXYZINE HCL 29923754509 Active Baltazar Childers MD Active ALPRAZOLAM 1 MG ORAL TABLET 1 tablet by mouth daily at [facility] ALPRAZOLAM 11985492499 Active Baltazar Childers MD Active METFORMIN HCL 1000 MG ORAL TABLET Take one by mouth twice daily METFORMIN HCL 23565056051 Active Baltazar Childers MD Active TIZANIDINE HCL 4 MG ORAL TABLET 1 daily as needed for muscle spa sm TIZANIDINE HCL 4 MG ORAL TABLET 649920 TIZANIDINE HCL Inactive PHENTERMINE HCL 37.5 MG ORAL TABLET Take one by mouth daily PHENTERMINE HCL 37.5 MG ORAL TABLET 975904 PHENTERMINE HCL Inac tive CRESTOR 10 MG ORAL TABLET 1 by mouth every day CRESTOR 10 MG ORAL TABLET 294096 ROSUVASTATIN CALCIUM Inactive LIPITOR 20 MG ORAL TABLET Take one by mouth daily in evening LIPITOR 20 MG ORAL TABLET 083521 ATORVASTATIN CALCIUM Inactive DEPO-TESTOSTERONE 200 MG/ML INTRAMUSCULAR SOLUTION as directed DEPO-TESTOSTERONE 200 MG/ML INTRAMUSCULAR SOLUTION 8726065 RUFINO TOSTERONE CYPIONATE Inactive NAPROXEN 500 MG ORAL TABLET 1 tablet by mouth twice daily NAPROXEN 500 MG ORAL TABLET 538480 NAPROXEN Inactive GABAPENTIN 300 MG ORAL CAPSULE 1 po qd x 2 days, then 1 po BID x 2 days, then 1 po TID GABAPENTIN 300 MG ORAL CAPSULE 374411 GABAP ENTIN Inactive ONETOUCH ULTRA BLUE IN VITRO STRIP Test twice a day 07/11/11 ONETOUCH ULTRA BLUE IN VITRO STRIP GLUCOSE BLOOD Inact amie NAPROXEN SODIUM 220 MG ORAL TABLET 1 three times a day as needed NAPROXEN SODIUM 220 MG ORAL TABLET 441750 NAPROXEN SODI UM Inactive TOUJEO SOLOSTAR 300 UNIT/ML SUBCUTANEOUS SOLUTION PEN- INJECTOR 10 units SC daily TOUJEO SOLOSTAR 300 UNIT/ML SUBCUTANEOUS SOLUTION PEN-INJECTOR INSULIN GLARGINE Inactive SUCRALFATE 1 GM ORAL TABLET 1 four times a day to coat the stoma ch SUCRALFATE 1 GM ORAL TABLET 257963 SUCRALFATE Inac tive GABAPENTIN 300 MG ORAL CAPSULE 1 three times a day 201 12/03/26 GABAPENTIN 300 MG ORAL CAPSULE 478444 GABAPENTIN Inactive ZITHROMAX Z-ISAIAS 250 MG ORAL TABLET Take two tablets to day and then 1 tablet daily for 4 days ZITHROMAX Z-ISAIAS 250 MG ORAL TAB LET 228076 AZITHROMYCIN Inactive Immunizations Vaccine Administration Date Value Standard Floyd cription pneumococcal immunization administered Pneumovax 23 [CVX33] pneumococcal polysaccharide vaccine, 23 valent Seasonal influenza vaccine, injectable, containing preservative, for > 3 years old (Afluria, FluLaval, Fluzone, Fluvirin, Fluarix, Agriflu(>= 18 yo)) Fluzone (>3 yrs.) [KFL794] Influenza, seasonal, inject able Seasonal influenza vaccine, injectable, containing preservative, for > 3 years old (Afluria, FluLaval, Fluzone, Fluvirin, Fluarix, Agriflu(>= 18 yo)) Fluzone (>3 yrs.) [QMQ262] Influenza, seasonal, inject able Vital Signs Date [...] 4.7 mmol/L 3.5-5.2 sodium, serum 139 mmol/L 228-047 5804/06/26 sodium, serum 139 mmol/L 786-898 5106/06/26 potassium, serum 4.8 mmol/L 3.5-5.2 chloride, serum [...] (L) - Chemistry cholesterol, serum 209 mg/dL 038-811 9406/12/27 triglyceride, serum, fasting 329 mg/dL 30-200 HDL cholesterol, serum 56 mg/dL 32-60 LDL cholesterol, serum 87 mg/dL 0-130 TSH 3.60 m[iU]/mL 0.36-3.74 Lab Report: Thyroid Stimulating Hormone (L) - Chemistry TSH 8.56 m[iU]/mL 0.36-3.74 Office Visit: Meds Check - Toxicology drug screen, urine, qualitative negative Encounters Code Encounter Date Provider Facility CPT-17797 Level 4 Est. Patient 17:26:08 CDT Ann trujillo PA-C [facility] CPT-55800 [id number] Vst-Est Level V 14:26:27 CDT Aneudy Childers MD [facility] CPT-67340 Level 4 Est. Patient 17:05:37 CDT Baltazar Childers MD [facility] CPT-60048 Level 4 Est. Patient 16:21:19 COMMUNITY LIFE DIRECTOR Baltazar Childers MD [facility] CPT-61170 Level 4 Est. Patient 12:25:11 CDT Baltazar Childers MD [facility] CPT-80068 Level 4 Est. Patient 14:22:31 CDT Baltazar Childers MD [facility] CPT-95980 Level 4 Est. Patient 15:44:38 CDT Shonna Parker APRN [facility]-92219 Level 4 Est. Patient 11:34:17 CDT Baltazar Childers MD [facility]-99028 Level 3 Est. Patient 16:40:40 CDT Baltazar Childers MD [facility]-66209 Level 4 Est. Patient 10:41:24 CDT Baltazar Childers MD [facility]-61713 Level 4 Est. Patient 16:01:48 CDT Baltazar Childers MD [facility]-25451 Level 4 Est. Patient 16:54:07 COMMUNITY LIFE DIRECTOR Baltazar Childers MD [facility]-98106 Level 4 Est. Patient 15:42:12 CDT Baltazar Childers MD [facility]-35958 Level 4 Est. Patient 11:29:55 CDT Baltazar Childers MD [facility]-69964 Level 4 Est. Patient 14:15:19 CDT Baltazar Childers MD [facility] CPT-08519 Level 4 Est. Patient 12:20:13 CDT Baltazar Childers MD [facility]-26179 Level 4 Est. Patient 14:52:45 COMMUNITY LIFE DIRECTOR Baltazar Childers MD [facility]-41502 Level 4 Est. Patient 14:18:34 COMMUNITY LIFE DIRECTOR Baltazar Childers MD [facility]-70805 Level 4 Est. Patient 15:18:29 CDT Baltazar Childers MD [facility]-69698 Level 3 Est. Patient 12:45:34 CDT Baltazar Childers MD [facility]-49346 Level 3 Est. Patient 10:10:11 CDT Baltazar Childers MD [facility]-38036 Level 3 Est. Patient 14:07:50 CDT Baltazar Childers MD [facility] CPT-73397 Level 4 Est. Patient 12:26:10 COMMUNITY LIFE DIRECTOR Baltazar Childers MD [facility] CPT-61645 Level 4 Est. Patient 14:45:38 CDT Baltazar Childers MD [facility] CPT-13241 Level 4 New Patient 12:30:48 CDT Baltazar hinton MD [facility] Procedures Code Procedure Name Date Entry Date Standard Desc ription CPT-000 Give Appropriate Flu Vaccine 12:25:14 CDT 2 CPT-92175 First Vx - Ix admin via ID I M or jet injects without counseling by physician 13:08:59 CDT CPT-82375 Fluzone Quadrivalent Intramuscular Suspe nsion 0.5 ML 13:08:59 CDT CPT-71649 Venipuncture Draw Fee 12:04:12 CDT CPT-12227 Lipid - LAB USE ONLY 17:39:15 COMMUNITY LIFE DIRECTOR 9 CPT-78521 HGBA1C - LAB USE ONLY 17:39:15 COMMUNITY LIFE DIRECTOR CPT-09970 CMP - LAB USE ONLY 17:39:14 COMMUNITY LIFE DIRECTOR CPT-70083 Venipuncture Draw Fee 17:39:14 COMMUNITY LIFE DIRECTOR CPT-17723 First Vx - Ix admin via ID I M or jet injects without counseling by physician 16:55:17 COMMUNITY LIFE DIRECTOR CPT-48124 Fluzone Quadrivalent Intramuscular Suspe nsion 0.5 ML 16:55:17 COMMUNITY LIFE DIRECTOR CPT-50728 Renal Panel - LAB USE ONLY 17:39:20 CDT 201 10/31/07 CPT-70677 CBC - LAB USE ONLY 17:39:20 CDT CPT-91025 Venipuncture Draw Fee 17:39:20 CDT CPT-27667 Venipuncture Draw Fee 14:33:30 CDT CPT-92609 Renal Panel - LAB USE ONLY 14:33:30 CDT 201 10/31/07 CPT-84527 CBC - LAB USE ONLY 14:33:29 CDT CPT-22204 Venipuncture Draw Fee 14:50:21 COMMUNITY LIFE DIRECTOR CPT-77422 Immunization Single Admin 17:35:35 CDT 2014 CPT-35280 Fluzone Quadrivalent preservative free ( >=3yrs.) 17:35:35 CDT CPT-61566 Venipuncture Draw Fee 12:10:27 COMMUNITY LIFE DIRECTOR CPT-68657 Fluzone Quadrivalent Intramuscular Suspe nsion 0.5 ML 10:49:13 CDT CPT-61166 First Vx Component - Ix admi n via ID IM or jet inj without physician counseling 15:17:19 COMMUNITY LIFE DIRECTOR CPT-65436 Pneumovax 23 15:17:19 COMMUNITY LIFE DIRECTOR CPT-71814 Pneumovax 14:52:45 COMMUNITY LIFE DIRECTOR CPT-86297 Venipuncture Draw Fee 14:06:30 COMMUNITY LIFE DIRECTOR CPT-000 Give Appropriate Flu Vaccine 14:18:34 COMMUNITY LIFE DIRECTOR 2 CPT-33690 Administration single or combination vac cine inc oral 14:46:00 COMMUNITY LIFE DIRECTOR CPT-38659 Influenza split virus > age 3 14:46:00 COMMUNITY LIFE DIRECTOR CPT-OV Office Visit 19:13:16 CDT CPT-10499 Zostavax 18:41:56 CDT CPT-98906 Administration single or combination vac cine inc oral 12:56:39 CDT CPT-28136 Zoster Vaccine (Zostavax) 12:56:39 CDT 2012 CPT-00054 Venipuncture Draw Fee 10:58:57 CDT CPT-01883 Sono pelvis non OB uterus ovaries cervix 17:45:04 CDT CPT-90600 Sono retroperitoneal complete kidneys an d bladder 17:14:36 CDT CPT-OV Office Visit 14:59:38 COMMUNITY LIFE DIRECTOR CPT-J1070 Depo Testosterone 100 mg 14:50:13 CDT 03/05 CPT-22006 Abx/Therapy Injection 14:50:13 CDT CPT-56070 Administration single or combination vac cine inc oral 14:34:43 CDT CPT-01978 Influenza split virus > age 3 14:34:43 CDT CPT-J1070 Depo Testosterone 100 mg 17:37:13 CDT 01/11 CPT-30051 Abx/Therapy Injection 17:37:13 CDT CPT-10244 Venipuncture Draw Fee 16:30:13 CDT CPT-14435 Venipuncture Draw Fee 16:29:43 CDT CPT-J1070 Depo Testosterone 100 mg 14:45:38 CDT 01/11
--- OUTSIDE RECORDS SUMMARY | 2019-10-27 11:59 | XMS REPORT | Clinical Summary ---
Author Author Admin, Elba Lance Michelle [facility] Address Unknown Phone Unavailable Allergies, Adverse Reactions, [...] ronary atherosclerosis of unspecified type of vessel, [place] or graft OTH NONSPC ABN FINDNG RAD&OTH [...] Generic Name NDC Status Provider Patient Instruction SYNTHROID 112 MCG ORAL TABLET Take one tablet a day LEVOTHYROXINE SODIUM 27608507300 Active Agata Silveira MA Active TRUE METRIX AIR GLUCOSE METER DEVICE Use as directed BLOOD GLUCOSE MONITORING SUPPL 84788781130 Active Baltazar Childers MD Activ e TRUE METRIX BLOOD GLUCOSE TEST IN VITRO STRIP test blood sug ar BID Dx: E11.65 GLUCOSE BLOOD 23463836981 Active Ct Ledesma MA Active NORTRIPTYLINE HCL 50 MG ORAL CAPSULE 1 twice a day for neuropathy 2 NORTRIPTYLINE HCL 70527258369 Active Ann Martinez PA-C Act amie ASPIRIN 81 MG TBEC Take one (1) tablet by mouth daily ASPIRIN 45639683175 Active Baltazar Childers MD Active GABAPENTIN 300 MG ORAL CAPSULE 1 three times a day 201 12/03/26 GABAPENTIN 31028037096 No Longer Active Baltazar Childers MD Activ e LISINOPRIL 20 MG ORAL TABLET 1 tablet by mouth daily at night 2016 LISINOPRIL 34249470095 Active Ann Martinez PA-C Active ZITHROMAX Z-ISAIAS 250 MG ORAL TABLET Take two tablets to day and then 1 tablet daily for 4 days AZITHROMYCIN 11717059962 No Longer A ctive Baltazar Childers MD Active LANTUS SOLOSTAR 100 UNIT/ML SUBCUTANEOUS SOLUTION PEN- INJECTOR 30 units SC daily INSULIN GLARGINE 83368909772 Active Baltazar Childers MD Active AMLODIPINE BESYLATE 5 MG ORAL TABLET 1 tab daily for HTN AMLODIPINE BESYLATE 79796303092 Active Ann Martinez PA-C Active GLIPIZIDE 10 MG ORAL TABLET take 2 tablets twice daily GLIPIZIDE 03133927462 Active Baltazar Childers MD Active SUCRALFATE 1 GM ORAL TABLET 1 four times a day to coat the stoma ch SUCRALFATE 45993788875 No Longer Active Baltazar Childers MD Active PEN NEEDLES 31G X 6 MM use 1 daily INSULIN PEN NE EDLE 42087633121 Active KENDALL Juarez Active TOUJEO SOLOSTAR 300 UNIT/ML SUBCUTANEOUS SOLUTION PEN- INJECTOR 10 units SC daily INSULIN GLARGINE 45192122825 No Longer Active Rola ARGUETA Active NAPROXEN SODIUM 220 MG ORAL TABLET 1 three times a day as needed NAPROXEN SODIUM 92602126835 No Longer Active Baltazar Childers MD Active ATORVASTATIN CALCIUM 20 MG ORAL TABLET Take 1 tab daily ATORVASTATIN CALCIUM 68653063608 Active Baltazar Childers MD A ctive FUROSEMIDE 40 MG ORAL TABLET Take one by mouth daily FUROSEMIDE 53816353747 Active Baltazar Childers MD Active LISINOPRIL 20 MG ORAL TABLET Take one by mouth daily at bedtime LISINOPRIL 72416293211 No Longer Active Baltazar Childers MD Active ONETOUCH ULTRA BLUE IN VITRO STRIP Test twice a day 07/11/11 GLUCOSE BLOOD 69921152268 No Longer Active Baltazar Childers MD Acti ve TRUEPLUS LANCETS 33G Test twice a day LANCETS 4392731 7760 Active KENDALL Juarez Active TRUEDRAW LANCING DEVICE Test twice a day LANCET DEVICES 20903389502 Active Baltazar Childers MD Active TRUETRACK BLOOD GLUCOSE w/Device KIT Test twice a day BLOOD GLUCOSE MONITORING SUPPL 90800081742 Active Baltazar Childers MD Activ e HYDROCODONE-ACETAMINOPHEN 7.5-325 MG ORAL TABLET Take 1 tab every 6-8 hours PRN HYDROCODONE-ACETAMINOPHEN 07567033869 Active Ann maciel PA-C Active GABAPENTIN 300 MG ORAL CAPSULE 1 po qd x 2 days, then 1 po BID x 2 days, then 1 po TID GABAPENTIN 09620998991 No Longer Active Baltazar Childers MD Active TRAMADOL HCL 50 MG ORAL TABLET 1 twice a day as needed for pain 201 07/27/28 TRAMADOL HCL 06439819231 Active Baltazar Childers MD Active NAPROXEN 500 MG ORAL TABLET 1 tablet by mouth twice daily NAPROXEN 36438860546 No Longer Active Baltazar Childers MD Active PROAIR HFA 108 (90 Base) MCG/ACT INHALATION AEROSOL SO LUTION 2 puffs four times a day as needed ALBUTEROL SULFATE 82396322456 Active R gilberto Childers MD Active DEPO-TESTOSTERONE 200 MG/ML INTRAMUSCULAR SOLUTION as directed TESTOSTERONE CYPIONATE 58133695389 No Longer Active Baltazar Childers MD Active LIPITOR 20 MG ORAL TABLET Take one by mouth daily in evening ATORVASTATIN CALCIUM 80003657659 No Longer Active Baltazar Childers MD Active CRESTOR 10 MG ORAL TABLET 1 by mouth every day ROSUVASTATIN CALCIUM 37977084083 No Longer Active Baltazar Childers MD Active PHENTERMINE HCL 37.5 MG ORAL TABLET Take one by mouth daily PHENTERMINE HCL 39965674373 No Longer Active Baltazar Childers MD Ac tive ROBAXIN-750 750 MG ORAL TABLET Take one by mouth daily METHOCARBAMOL 90067030212 Active KENDALL Juarez Active TIZANIDINE HCL 4 MG ORAL TABLET 1 daily as needed for muscle spa sm TIZANIDINE HCL 74174040074 No Longer Active Dawna Salazar RN Active [id number] 50-325-40 MG ORAL TABLET 1 fo ur times a day as needed for heacache [id number] 86297405772 Active Baltazar Childers MD Active SUMATRIPTAN SUCCINATE 100 MG ORAL TABLET 1 tablet by m outh at onset of migraine as needed SUMATRIPTAN SUCCINATE 55349013837 Active KENDALL Restrepo Active LORATADINE 10 MG ORAL TABLET Take one by mouth daily LORATADINE 69990522024 Active KENDALL Juarez Active OMEPRAZOLE 20 MG ORAL CAPSULE DELAYED RELEASE Take one by mouth jostin ly OMEPRAZOLE 71881804407 Active Ann Martinez PA-C Active HYDROXYZINE HCL 25 MG ORAL TABLET Take one by mouth daily HYDROXYZINE HCL 84744591762 Active Baltazar Childers MD Active ALPRAZOLAM 1 MG ORAL TABLET 1 [facility] ALPR[facility]AM 70846074535 Active Baltazar Childers MD Active METFORMIN HCL 1000 MG ORAL TABLET Take one by mouth twice daily METFORMIN HCL 06735238729 Active Baltazar Childers MD Active TIZANIDINE HCL 4 MG ORAL TABLET 1 daily as needed for muscle spa sm TIZANIDINE HCL 4 MG ORAL TABLET 482714 TIZANIDINE HCL Inactive PHENTERMINE HCL 37.5 MG ORAL TABLET Take one by mouth daily PHENTERMINE HCL 37.5 MG ORAL TABLET 169992 PHENTERMINE HCL Inac tive CRESTOR 10 MG ORAL TABLET 1 by mouth every day CRESTOR 10 MG ORAL TABLET 653391 ROSUVASTATIN CALCIUM Inactive LIPITOR 20 MG ORAL TABLET Take one by mouth daily in evening LIPITOR 20 MG ORAL TABLET 262991 ATORVASTATIN CALCIUM Inactive DEPO-TESTOSTERONE 200 MG/ML INTRAMUSCULAR SOLUTION as directed DEPO-TESTOSTERONE 200 MG/ML INTRAMUSCULAR SOLUTION 7790076 RUFINO TOSTERONE CYPIONATE Inactive NAPROXEN 500 MG ORAL TABLET 1 tablet by mouth twice daily NAPROXEN 500 MG ORAL TABLET 786854 NAPROXEN Inactive GABAPENTIN 300 MG ORAL CAPSULE 1 po qd x 2 days, then 1 po BID x 2 days, then 1 po TID GABAPENTIN 300 MG ORAL CAPSULE 781138 GABAP ENTIN Inactive ONETOUCH ULTRA BLUE IN VITRO STRIP Test twice a day 07/11/11 ONETOUCH ULTRA BLUE IN VITRO STRIP GLUCOSE BLOOD Inact amie NAPROXEN SODIUM 220 MG ORAL TABLET 1 three times a day as needed NAPROXEN SODIUM 220 MG ORAL TABLET 959228 NAPROXEN SODI UM Inactive TOUJEO SOLOSTAR 300 UNIT/ML SUBCUTANEOUS SOLUTION PEN- INJECTOR 10 units SC daily TOUJEO SOLOSTAR 300 UNIT/ML SUBCUTANEOUS SOLUTION PEN-INJECTOR INSULIN GLARGINE Inactive SUCRALFATE 1 GM ORAL TABLET 1 four times a day to coat the stoma ch SUCRALFATE 1 GM ORAL TABLET 414772 SUCRALFATE Inac tive GABAPENTIN 300 MG ORAL CAPSULE 1 three times a day 201 12/03/26 GABAPENTIN 300 MG ORAL CAPSULE 102999 GABAPENTIN Inactive ZITHROMAX Z-ISAIAS 250 MG ORAL TABLET Take two tablets to day and then 1 tablet daily for 4 days ZITHROMAX Z-ISAIAS 250 MG ORAL TAB LET 576329 AZITHROMYCIN Inactive Immunizations Vaccine Administration Date Value Standard Floyd cription pneumococcal immunization administered Pneumovax 23 [CVX33] pneumococcal polysaccharide vaccine, 23 valent Seasonal influenza vaccine, injectable, containing preservative, for > 3 years old (Afluria, FluLaval, Fluzone, Fluvirin, Fluarix, Agriflu(>= 18 yo)) Fluzone (>3 yrs.) [AHS472] Influenza, seasonal, inject able Seasonal influenza vaccine, injectable, containing preservative, for > 3 years old (Afluria, FluLaval, Fluzone, Fluvirin, Fluarix, Agriflu(>= 18 yo)) Fluzone (>3 yrs.) [QBT723] Influenza, seasonal, inject able Vital Signs Date [...] - Chem istry sodium, serum 139 mmol/L 191-760 7719/10/03 potassium, serum 4.7 mmol/L 3.5-5.2 chloride, serum 98 mmol/L 98-107 carbon dioxide, venous blood 28.7 mmol/L 21.0-32 .0 blood glucose 218 mg/dL 65-110 calcium, serum 9.8 mg/dL 8.5-10.1 urea nitrogen, blood 19 mg/dL 7-18 creatinine, serum 1.68 mg/dL 0.60-1.30 sodium, serum 139 mmol/L 840-047 7488/06/26 potassium, serum 4.8 mmol/L 3.5-5.2 chloride, serum [...] (L) - Chemistry cholesterol, serum 209 mg/dL 755-612 2367/12/27 triglyceride, serum, fasting 329 mg/dL 30-200 HDL cholesterol, serum 56 mg/dL 32-60 LDL cholesterol, serum 87 mg/dL 0-130 TSH 3.60 m[iU]/mL 0.36-3.74 Lab Report: Thyroid Stimulating Hormone (L) - Chemistry TSH 8.56 m[iU]/mL 0.36-3.74 Office Visit: Meds Check - Toxicology drug screen, urine, qualitative negative Encounters Code Encounter Date Provider Facility CPT-08357 Level 4 Est. Patient 17:26:08 CDT Ann trujlilo PA-C [facility] CPT-28257 34123-Lau Vst-Est Level V 14:26:27 CDT Aneudy Childers MD [facility] CPT-11265 Level 4 Est. Patient 17:05:37 CDT Baltazar Childers MD [facility] CPT-44725 Level 4 Est. Patient 16:21:19 INFORMATION SECURITY RISK ANALYST Baltazar Childers MD [facility] CPT-50253 Level 4 Est. Patient 12:25:11 CDT Baltazar Childers MD [facility] CPT-34162 Level 4 Est. Patient 14:22:31 CDT Baltazar Childers MD [facility] CPT-24985 Level 4 Est. Patient 15:44:38 CDT Shonna Parker APRN [facility] CPT-05077 Level 4 Est. Patient 11:34:17 CDT Baltazar Childers MD [facility]-62021 Level 3 Est. Patient 16:40:40 CDT Baltazar Childers MD [facility] CPT-17077 Level 4 Est. Patient 10:41:24 CDT Baltazar Childers MD [facility]-86172 Level 4 Est. Patient 16:01:48 CDT Baltazar Childers MD [facility]-46394 Level 4 Est. Patient 16:54:07 INFORMATION SECURITY RISK ANALYST Baltazar Childers MD [facility]-03311 Level 4 Est. Patient 15:42:12 CDT Baltazar Childers MD [facility] CPT-50490 Level 4 Est. Patient 11:29:55 CDT Baltazar Childers MD [facility] CPT-08033 Level 4 Est. Patient 14:15:19 CDT Baltazar Childers MD [facility] CPT-62247 Level 4 Est. Patient 12:20:13 CDT Baltazar Childers MD [facility] CPT-37841 Level 4 Est. Patient 14:52:45 INFORMATION SECURITY RISK ANALYST Baltazar Childers MD [facility] CPT-21803 Level 4 Est. Patient 14:18:34 INFORMATION SECURITY RISK ANALYST Baltazar Childers MD [facility] CPT-89047 Level 4 Est. Patient 15:18:29 CDT Baltazar Childers MD [facility] CPT-11657 Level 3 Est. Patient 12:45:34 CDT Baltazar Childers MD [facility] [place]-62825 Level 3 Est. Patient 10:10:11 CDT Baltazar Childers MD [facility] CPT-85680 Level 3 Est. Patient 14:07:50 CDT Baltazar Childers MD [facility] CPT-00500 Level 4 Est. Patient 12:26:10 INFORMATION SECURITY RISK ANALYST Baltazar Childers MD [facility] CPT-82378 Level 4 Est. Patient 14:45:38 CDT Baltazar Childers MD [facility] CPT-84755 Level 4 New Patient 12:30:48 CDT Baltazar hinton MD [facility] Procedures Code Procedure Name Date Entry Date Standard Desc ription CPT-000 Give Appropriate Flu Vaccine 12:25:14 CDT 2 CPT-29728 First Vx - Ix admin via ID I M or jet injects without counseling by physician 13:08:59 CDT CPT-11434 Fluzone Quadrivalent Intramuscular Suspe nsion 0.5 ML 13:08:59 CDT CPT-45949 Venipuncture Draw Fee 12:04:12 CDT CPT-33685 Lipid - LAB USE ONLY 17:39:15 INFORMATION SECURITY RISK ANALYST 9 CPT-88058 HGBA1C - LAB USE ONLY 17:39:15 INFORMATION SECURITY RISK ANALYST CPT-02387 CMP - LAB USE ONLY 17:39:14 INFORMATION SECURITY RISK ANALYST CPT-72531 Venipuncture Draw Fee 17:39:14 INFORMATION SECURITY RISK ANALYST CPT-76087 First Vx - Ix admin via ID I M or jet injects without counseling by physician 16:55:17 INFORMATION SECURITY RISK ANALYST CPT-13663 Fluzone Quadrivalent Intramuscular Suspe nsion 0.5 ML 16:55:17 INFORMATION SECURITY RISK ANALYST CPT-26876 Renal Panel - LAB USE ONLY 17:39:20 CDT 201 10/31/07 CPT-49986 CBC - LAB USE ONLY 17:39:20 CDT CPT-95208 Venipuncture Draw Fee 17:39:20 CDT CPT-29109 Venipuncture Draw Fee 14:33:30 CDT CPT-94035 Renal Panel - LAB USE ONLY 14:33:30 CDT 201 10/31/07 CPT-40590 CBC - LAB USE ONLY 14:33:29 CDT CPT-67855 Venipuncture Draw Fee 14:50:21 INFORMATION SECURITY RISK ANALYST CPT-51377 Immunization Single Admin 17:35:35 CDT 2014 CPT-45924 Fluzone Quadrivalent preservative free ( >=3yrs.) 17:35:35 CDT CPT-75748 Venipuncture Draw Fee 12:10:27 INFORMATION SECURITY RISK ANALYST CPT-39249 Fluzone Quadrivalent Intramuscular Suspe nsion 0.5 ML 10:49:13 CDT CPT-34301 First Vx Component - Ix admi n via ID IM or jet inj without physician counseling 15:17:19 INFORMATION SECURITY RISK ANALYST CPT-36381 Pneumovax 23 15:17:19 INFORMATION SECURITY RISK ANALYST CPT-96762 Pneumovax 14:52:45 INFORMATION SECURITY RISK ANALYST CPT-78114 Venipuncture Draw Fee 14:06:30 INFORMATION SECURITY RISK ANALYST CPT-000 Give Appropriate Flu Vaccine 14:18:34 INFORMATION SECURITY RISK ANALYST 2 CPT-47815 Administration single or combination vac cine inc oral 14:46:00 INFORMATION SECURITY RISK ANALYST CPT-31734 Influenza split virus > age 3 14:46:00 INFORMATION SECURITY RISK ANALYST CPT-OV Office Visit 19:13:16 CDT CPT-10233 Zostavax 18:41:56 CDT CPT-21322 Administration single or combination vac cine inc oral 12:56:39 CDT CPT-23035 Zoster Vaccine (Zostavax) 12:56:39 CDT 2012 CPT-93747 Venipuncture Draw Fee 10:58:57 CDT CPT-36335 Sono pelvis non OB uterus ovaries cervix 17:45:04 CDT CPT-13907 Sono retroperitoneal complete kidneys an d bladder 17:14:36 CDT CPT-OV Office Visit 14:59:38 INFORMATION SECURITY RISK ANALYST CPT-J1070 Depo Testosterone 100 mg 14:50:13 CDT 03/05 CPT-95803 Abx/Therapy Injection 14:50:13 CDT CPT-52217 Administration single or combination vac cine inc oral 14:34:43 CDT CPT-15010 Influenza split virus > age 3 14:34:43 CDT CPT-J1070 Depo Testosterone 100 mg 17:37:13 CDT 01/11 CPT-69980 Abx/Therapy Injection 17:37:13 CDT CPT-85443 Venipuncture Draw Fee 16:30:13 CDT CPT-32950 Venipuncture Draw Fee 16:29:43 CDT CPT-J1070 Depo Testosterone 100 mg 14:45:38 CDT 01/11
--- OUTSIDE RECORDS SUMMARY | 2019-10-27 11:59 | XMS REPORT | Clinical Summary ---
Author Author Admin, Elba Lance StrongSteam Address Unknown Phone Unavailable Allergies, Adverse Reactions, [...] ronary atherosclerosis of unspecified type of vessel, [place] or graft OTH NONSPC ABN FINDNG [...] Generic Name NDC Status Provider Patient Instruction TRUE METRIX AIR GLUCOSE METER DEVICE Use as directed BLOOD GLUCOSE MONITORING SUPPL 70080976511 Active Baltazar Childers MD Activ e TRUE METRIX BLOOD GLUCOSE TEST IN VITRO STRIP test blood sug ar BID Dx: E11.65 GLUCOSE BLOOD 11790796401 Active Ct Ledesma MA Active NORTRIPTYLINE HCL 50 MG ORAL CAPSULE 1 twice a day for neuropathy 2 NORTRIPTYLINE HCL 71651680883 Active Ann Martinez PA-C Act amie ASPIRIN 81 MG TBEC Take one (1) tablet by mouth daily ASPIRIN 54819155001 Active Baltazar Childers MD Active GABAPENTIN 300 MG ORAL CAPSULE 1 three times a day 201 12/03/26 GABAPENTIN 31452176410 No Longer Active Baltazar Childers MD Activ e LISINOPRIL 20 MG ORAL TABLET 1 tablet by mouth daily at night 2016 LISINOPRIL 78161314687 Active Ann Martinez PA-C Active ZITHROMAX Z-ISAIAS 250 MG ORAL TABLET Take two tablets to day and then 1 tablet daily for 4 days AZITHROMYCIN 03616003129 No Longer A ctive Baltazar Childers MD Active LANTUS SOLOSTAR 100 UNIT/ML SUBCUTANEOUS SOLUTION PEN- INJECTOR 30 units SC daily INSULIN GLARGINE 75872288447 Active Baltazar Childers MD Active AMLODIPINE BESYLATE 5 MG ORAL TABLET 1 tab daily for HTN AMLODIPINE BESYLATE 67043895497 Active Ann Martinez PA-C Active SYNTHROID 100 MCG ORAL TABLET 1 tablet by mouth daily LEVOTHYROXINE SODIUM 05627029213 Active Ann Martinez PA-C Active GLIPIZIDE 10 MG ORAL TABLET take 2 tablets twice daily GLIPIZIDE 25755335717 Active Baltazar Childers MD Active SUCRALFATE 1 GM ORAL TABLET 1 four times a day to coat the stoma ch SUCRALFATE 67721056751 No Longer Active Baltazar Childers MD Active PEN NEEDLES 31G X 6 MM use 1 daily INSULIN PEN NE EDLE 21393158255 Active KENDALL Juarez Active TOURINKUO SOLOSTAR 300 UNIT/ML SUBCUTANEOUS SOLUTION PEN- INJECTOR 10 units SC daily INSULIN GLARGINE 74301002134 No Longer Active Rola ARGUETA Active NAPROXEN SODIUM 220 MG ORAL TABLET 1 three times a day as needed NAPROXEN SODIUM 93892599288 No Longer Active Baltazar Childers MD Active ATORVASTATIN CALCIUM 20 MG ORAL TABLET Take 1 tab daily ATORVASTATIN CALCIUM 16608335268 Active Baltazar Childers MD A ctive FUROSEMIDE 40 MG ORAL TABLET Take one by mouth daily FUROSEMIDE 47026833509 Active Baltazar Childers MD Active LISINOPRIL 20 MG ORAL TABLET Take one by mouth daily at bedtime LISINOPRIL 01363122768 No Longer Active Baltazar Childers MD Active ONETOUCH ULTRA BLUE IN VITRO STRIP Test twice a day 07/11/11 GLUCOSE BLOOD 70538545843 No Longer Active Baltazar Childers MD Acti ve TRUEPLUS LANCETS 33G Test twice a day LANCETS 5943617 2702 Active KENDALL Juarez Active TRUEDRAW LANCING DEVICE Test twice a day LANCET DEVICES 95486289270 Active Baltazar Childers MD Active TRUETRACK BLOOD GLUCOSE w/Device KIT Test twice a day BLOOD GLUCOSE MONITORING SUPPL 06482979608 Active Baltazar Childers MD Activ e HYDROCODONE-ACETAMINOPHEN 7.5-325 MG ORAL TABLET Take 1 tab every 6-8 hours PRN HYDROCODONE-ACETAMINOPHEN 07282660334 Active Ann maciel PA-C Active GABAPENTIN 300 MG ORAL CAPSULE 1 po qd x 2 days, then 1 po BID x 2 days, then 1 po TID GABAPENTIN 42933884431 No Longer Active Blatazar Childers MD Active TRAMADOL HCL 50 MG ORAL TABLET 1 twice a day as needed for pain 201 07/27/28 TRAMADOL HCL 72598887963 Active Baltazar Childers MD Active NAPROXEN 500 MG ORAL TABLET 1 tablet by mouth twice daily NAPROXEN 21498779248 No Longer Active Baltazar Childers MD Active PROAIR HFA 108 (90 Base) MCG/ACT INHALATION AEROSOL SO LUTION 2 puffs four times a day as needed ALBUTEROL SULFATE 87866078056 Active R gilberto Childers MD Active DEPO-TESTOSTERONE 200 MG/ML INTRAMUSCULAR SOLUTION as directed TESTOSTERONE CYPIONATE 57939230091 No Longer Active Baltazar Childers MD Active LIPITOR 20 MG ORAL TABLET Take one by mouth daily in evening ATORVASTATIN CALCIUM 72243891209 No Longer Active Baltazar Childers MD Active CRESTOR 10 MG ORAL TABLET 1 by mouth every day ROSUVASTATIN CALCIUM 72135839671 No Longer Active Baltazar Childers MD Active PHENTERMINE HCL 37.5 MG ORAL TABLET Take one by mouth daily PHENTERMINE HCL 50267508189 No Longer Active Baltazar Childers MD Ac tive ROBAXIN-750 750 MG ORAL TABLET Take one by mouth daily METHOCARBAMOL 41794057398 Active KENDALL Juarez Active TIZANIDINE HCL 4 MG ORAL TABLET 1 daily as needed for muscle spa sm TIZANIDINE HCL 48684455913 No Longer Active Dawna Salazar RN Active [id number] 50-325-40 MG ORAL TABLET 1 fo ur times a day as needed for heacache [id number] 05843660109 Active Baltazar Childers MD Active SUMATRIPTAN SUCCINATE 100 MG ORAL TABLET 1 tablet by m outh at onset of migraine as needed SUMATRIPTAN SUCCINATE 52991512843 Active KENDALL Restrepo Active LORATADINE 10 MG ORAL TABLET Take one by mouth daily LORATADINE 90239840041 Active KENDALL Juarez Active OMEPRAZOLE 20 MG ORAL CAPSULE DELAYED RELEASE Take one by mouth jostin ly OMEPRAZOLE 46300557367 Active Ann Martinez PA-C Active HYDROXYZINE HCL 25 MG ORAL TABLET Take one by mouth daily HYDROXYZINE HCL 90655092610 Active Baltazar Childers MD Active ALPRAZOLAM 1 MG ORAL TABLET 1 tablet by mouth daily at [facility] ALPRAZOLAM 99867316764 Active Baltazar Childers MD Active METFORMIN HCL 1000 MG ORAL TABLET Take one by mouth twice daily METFORMIN HCL 05251884743 Active Baltazar Childers MD Active TIZANIDINE HCL 4 MG ORAL TABLET 1 daily as needed for muscle spa sm TIZANIDINE HCL 4 MG ORAL TABLET 915018 TIZANIDINE HCL Inactive PHENTERMINE HCL 37.5 MG ORAL TABLET Take one by mouth daily PHENTERMINE HCL 37.5 MG ORAL TABLET 025840 PHENTERMINE HCL Inac tive CRESTOR 10 MG ORAL TABLET 1 by mouth every day CRESTOR 10 MG ORAL TABLET 908364 ROSUVASTATIN CALCIUM Inactive LIPITOR 20 MG ORAL TABLET Take one by mouth daily in evening LIPITOR 20 MG ORAL TABLET 030058 ATORVASTATIN CALCIUM Inactive DEPO-TESTOSTERONE 200 MG/ML INTRAMUSCULAR SOLUTION as directed DEPO-TESTOSTERONE 200 MG/ML INTRAMUSCULAR SOLUTION 3451277 RUFINO TOSTERONE CYPIONATE Inactive NAPROXEN 500 MG ORAL TABLET 1 tablet by mouth twice daily NAPROXEN 500 MG ORAL TABLET 914148 NAPROXEN Inactive GABAPENTIN 300 MG ORAL CAPSULE 1 po qd x 2 days, then 1 po BID x 2 days, then 1 po TID GABAPENTIN 300 MG ORAL CAPSULE 718898 GABAP ENTIN Inactive ONETOUCH ULTRA BLUE IN VITRO STRIP Test twice a day 07/11/11 ONETOUCH ULTRA BLUE IN VITRO STRIP GLUCOSE BLOOD Inact amie NAPROXEN SODIUM 220 MG ORAL TABLET 1 three times a day as needed NAPROXEN SODIUM 220 MG ORAL TABLET 442861 NAPROXEN SODI UM Inactive TOUJEO SOLOSTAR 300 UNIT/ML SUBCUTANEOUS SOLUTION PEN- INJECTOR 10 units SC daily TOUJEO SOLOSTAR 300 UNIT/ML SUBCUTANEOUS SOLUTION PEN-INJECTOR INSULIN GLARGINE Inactive SUCRALFATE 1 GM ORAL TABLET 1 four times a day to coat the stoma ch SUCRALFATE 1 GM ORAL TABLET 629975 SUCRALFATE Inac tive GABAPENTIN 300 MG ORAL CAPSULE 1 three times a day 201 12/03/26 GABAPENTIN 300 MG ORAL CAPSULE 584377 GABAPENTIN Inactive ZITHROMAX Z-ISAIAS 250 MG ORAL TABLET Take two tablets to day and then 1 tablet daily for 4 days ZITHROMAX Z-ISAIAS 250 MG ORAL TAB LET 429253 AZITHROMYCIN Inactive Immunizations Vaccine Administration Date Value Standard Floyd cription pneumococcal immunization administered Pneumovax 23 [CVX33] pneumococcal polysaccharide vaccine, 23 valent Seasonal influenza vaccine, injectable, containing preservative, for > 3 years old (Afluria, FluLaval, Fluzone, Fluvirin, Fluarix, Agriflu(>= 18 yo)) Fluzone (>3 yrs.) [LMG918] Influenza, seasonal, inject able Seasonal influenza vaccine, injectable, containing preservative, for > 3 years old (Afluria, FluLaval, Fluzone, Fluvirin, Fluarix, Agriflu(>= 18 yo)) Fluzone (>3 yrs.) [BEO209] Influenza, seasonal, inject able Vital Signs Date [...] - Chem istry sodium, serum 139 mmol/L 996-243 7097/10/03 potassium, serum 4.7 mmol/L 3.5-5.2 chloride, serum 98 mmol/L 98-107 carbon dioxide, venous blood 28.7 mmol/L 21.0-32 .0 blood glucose 218 mg/dL 65-110 calcium, serum 9.8 mg/dL 8.5-10.1 urea nitrogen, blood 19 mg/dL 7-18 creatinine, serum 1.68 mg/dL 0.60-1.30 sodium, serum 139 mmol/L 303-929 9920/06/26 potassium, serum 4.8 mmol/L 3.5-5.2 chloride, serum [...] (L) - Chemistry cholesterol, serum 209 mg/dL 551-300 0348/12/27 triglyceride, serum, fasting 329 mg/dL 30-200 HDL cholesterol, serum 56 mg/dL 32-60 LDL cholesterol, serum 87 mg/dL 0-130 TSH 3.60 m[iU]/mL 0.36-3.74 Lab Report: Thyroid Stimulating Hormone (L) - Chemistry TSH 8.56 m[iU]/mL 0.36-3.74 Office Visit: Meds Check - Toxicology drug screen, urine, qualitative negative Encounters Code Encounter Date Provider Facility CPT-49195 Level 4 Est. Patient 17:26:08 CDT Ann trujillo PA-C [facility] CPT-11125 [id number] Vst-Est Level V 14:26:27 CDT Aneudy Childers MD [facility] CPT-63436 Level 4 Est. Patient 17:05:37 CDT Baltazar Childers MD [facility] CPT-06168 Level 4 Est. Patient 16:21:19 RETAIL AREA MANAGER Baltazar Childers MD [facility] CPT-86324 Level 4 Est. Patient 12:25:11 CDT Baltazar Childers MD [facility] CPT-64505 Level 4 Est. Patient 14:22:31 CDT Baltazar Childers MD [facility] CPT-14036 Level 4 Est. Patient 15:44:38 CDT Shonna Parker APRN [facility] CPT-60233 Level 4 Est. Patient 11:34:17 CDT Baltazar Childers MD [facility]-80584 Level 3 Est. Patient 16:40:40 CDT Baltazar Childers MD [facility]-44672 Level 4 Est. Patient 10:41:24 CDT Baltazar Childers MD [facility]-04585 Level 4 Est. Patient 16:01:48 CDT Baltazar Childers MD [facility]-60317 Level 4 Est. Patient 16:54:07 RETAIL AREA MANAGER Baltazar Childers MD [facility]-70152 Level 4 Est. Patient 15:42:12 CDT Baltazar Childers MD [facility] CPT-20170 Level 4 Est. Patient 11:29:55 CDT Baltazar Childers MD [facility] CPT-88209 Level 4 Est. Patient 14:15:19 CDT Baltazar Childers MD [facility] CPT-90440 Level 4 Est. Patient 12:20:13 CDT Baltazar Childers MD [facility]-81211 Level 4 Est. Patient 14:52:45 RETAIL AREA MANAGER Baltazar Childers MD [facility] CPT-67889 Level 4 Est. Patient 14:18:34 RETAIL AREA MANAGER Baltazar Childers MD [facility]-67950 Level 4 Est. Patient 15:18:29 CDT Baltazar Childers MD [facility]-58273 Level 3 Est. Patient 12:45:34 CDT Baltazar Childers MD [facility]-66718 Level 3 Est. Patient 10:10:11 CDT Baltazar Childers MD [facility]-73627 Level 3 Est. Patient 14:07:50 CDT Baltazar Childers MD [facility] CPT-86388 Level 4 Est. Patient 12:26:10 RETAIL AREA MANAGER Baltazar Childers MD [facility] CPT-54853 Level 4 Est. Patient 14:45:38 CDT Baltazar Childers MD [facility] CPT-06075 Level 4 New Patient 12:30:48 CDT Baltazar hinton MD [facility] Procedures Code Procedure Name Date Entry Date Standard Desc ription CPT-000 Give Appropriate Flu Vaccine 12:25:14 CDT 2 CPT-16083 First Vx - Ix admin via ID I M or jet injects without counseling by physician 13:08:59 CDT CPT-90576 Fluzone Quadrivalent Intramuscular Suspe nsion 0.5 ML 13:08:59 CDT CPT-76674 Venipuncture Draw Fee 12:04:12 CDT CPT-01842 Lipid - LAB USE ONLY 17:39:15 RETAIL AREA MANAGER 9 CPT-77425 HGBA1C - LAB USE ONLY 17:39:15 RETAIL AREA MANAGER CPT-62836 CMP - LAB USE ONLY 17:39:14 RETAIL AREA MANAGER CPT-04912 Venipuncture Draw Fee 17:39:14 RETAIL AREA MANAGER CPT-39234 First Vx - Ix admin via ID I M or jet injects without counseling by physician 16:55:17 RETAIL AREA MANAGER CPT-86343 Fluzone Quadrivalent Intramuscular Suspe nsion 0.5 ML 16:55:17 RETAIL AREA MANAGER CPT-37716 Renal Panel - LAB USE ONLY 17:39:20 CDT 201 10/31/07 CPT-41749 CBC - LAB USE ONLY 17:39:20 CDT CPT-36694 Venipuncture Draw Fee 17:39:20 CDT CPT-71700 Venipuncture Draw Fee 14:33:30 CDT CPT-79426 Renal Panel - LAB USE ONLY 14:33:30 CDT 201 10/31/07 CPT-29140 CBC - LAB USE ONLY 14:33:29 CDT CPT-59706 Venipuncture Draw Fee 14:50:21 RETAIL AREA MANAGER CPT-24844 Immunization Single Admin 17:35:35 CDT 2014 CPT-77656 Fluzone Quadrivalent preservative free ( >=3yrs.) 17:35:35 CDT CPT-32634 Venipuncture Draw Fee 12:10:27 RETAIL AREA MANAGER CPT-77624 Fluzone Quadrivalent Intramuscular Suspe nsion 0.5 ML 10:49:13 CDT CPT-76507 First Vx Component - Ix admi n via ID IM or jet inj without physician counseling 15:17:19 RETAIL AREA MANAGER CPT-91735 Pneumovax 23 15:17:19 RETAIL AREA MANAGER CPT-47109 Pneumovax 14:52:45 RETAIL AREA MANAGER CPT-18759 Venipuncture Draw Fee 14:06:30 RETAIL AREA MANAGER CPT-000 Give Appropriate Flu Vaccine 14:18:34 RETAIL AREA MANAGER 2 CPT-23214 Administration single or combination vac cine inc oral 14:46:00 RETAIL AREA MANAGER CPT-89598 Influenza split virus > age 3 14:46:00 RETAIL AREA MANAGER CPT-OV Office Visit 19:13:16 CDT CPT-38937 Zostavax 18:41:56 CDT CPT-48364 Administration single or combination vac cine inc oral 12:56:39 CDT CPT-53033 Zoster Vaccine (Zostavax) 12:56:39 CDT 2012 CPT-96349 Venipuncture Draw Fee 10:58:57 CDT CPT-83725 Sono pelvis non OB uterus ovaries cervix 17:45:04 CDT CPT-41264 Sono retroperitoneal complete kidneys an d bladder 17:14:36 CDT CPT-OV Office Visit 14:59:38 RETAIL AREA MANAGER CPT-J1070 Depo Testosterone 100 mg 14:50:13 CDT 03/05 CPT-97461 Abx/Therapy Injection 14:50:13 CDT CPT-35528 Administration single or combination vac cine inc oral 14:34:43 CDT CPT-60463 Influenza split virus > age 3 14:34:43 CDT CPT-J1070 Depo Testosterone 100 mg 17:37:13 CDT 01/11 CPT-79537 Abx/Therapy Injection 17:37:13 CDT CPT-06523 Venipuncture Draw Fee 16:30:13 CDT CPT-69376 Venipuncture Draw Fee 16:29:43 CDT CPT-J1070 Depo Testosterone 100 mg 14:45:38 CDT 01/11
[2019-10-27] MEDS ORDERED: ENOXAPARIN 100 MG/1 ML (LOVENOX) SYR SC ONE (12:00)
--- OUTSIDE RECORDS SUMMARY | 2019-10-27 12:00 | XMS REPORT | Clinical Summary ---
Author Author Admin, Elba Lance Quanter[employer] Address Unknown Phone Unavailable Allergies, Adverse Reactions, 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 PATIENT [employer] Benign neoplasm of colon PERIPHERAL NEUROPATHY 356.9 [...] Use as directed BLOOD GLUCOSE MONITORING SUPPL 69175848058 Active Baltazar Childers MD Activ e TRUE METRIX BLOOD GLUCOSE TEST IN VITRO STRIP test blood sug ar BID Dx: E11.65 GLUCOSE BLOOD 70909124579 Active Ct Ledesma MA Active NORTRIPTYLINE HCL 50 MG ORAL CAPSULE 1 twice a day for neuropathy 2 NORTRIPTYLINE HCL 84607983630 Active Ann Martinez PA-C Act amie ASPIRIN 81 MG TBEC Take one (1) tablet by mouth daily ASPIRIN 66509464088 Active Baltazar Childers MD Active GABAPENTIN 300 MG ORAL CAPSULE 1 three times a day 201 12/03/26 GABAPENTIN 91908823542 No Longer Active Baltazar Childers MD Activ e LISINOPRIL 20 MG ORAL TABLET 1 tablet by mouth daily at night 2016 LISINOPRIL 44541638880 Active Ann Martinez PA-C Active ZITHROMAX Z-ISAIAS 250 MG ORAL TABLET Take two tablets to day and then 1 tablet daily for 4 days AZITHROMYCIN 47615422625 No Longer A ctive Baltazar Childers MD Active LANTUS SOLOSTAR 100 UNIT/ML SUBCUTANEOUS SOLUTION PEN- INJECTOR 30 units SC daily INSULIN GLARGINE 30976426967 Active Baltazar Childers MD Active AMLODIPINE BESYLATE 5 MG ORAL TABLET 1 tab daily for HTN AMLODIPINE BESYLATE 96208011311 Active Ann Martinez PA-C Active SYNTHROID 100 MCG ORAL TABLET 1 tablet by mouth daily LEVOTHYROXINE SODIUM 90000733530 Active Ann Martinez PA-C Active GLIPIZIDE 10 MG ORAL TABLET take 2 tablets twice daily GLIPIZIDE 24681985891 Active Baltazar Childers MD Active SUCRALFATE 1 GM ORAL TABLET 1 four times a day to coat the stoma ch SUCRALFATE 92983791736 No Longer Active Baltazar Childers MD Active PEN NEEDLES 31G X 6 MM use 1 daily INSULIN PEN NE EDLE 23501759388 Active KENDALL Juarez Active TOURINKUO SOLOSTAR 300 UNIT/ML SUBCUTANEOUS SOLUTION PEN- INJECTOR 10 units SC daily INSULIN GLARGINE 13582135274 No Longer Active Rola ARGUETA Active NAPROXEN SODIUM 220 MG ORAL TABLET 1 three times a day as needed NAPROXEN SODIUM 95010731975 No Longer Active Baltazar Childers MD Active ATORVASTATIN CALCIUM 20 MG ORAL TABLET Take 1 tab daily ATORVASTATIN CALCIUM 00587589862 Active Baltazar Childers MD A ctive FUROSEMIDE 40 MG ORAL TABLET Take one by mouth daily FUROSEMIDE 86483872480 Active Baltazar Childers MD Active LISINOPRIL 20 MG ORAL TABLET Take one by mouth daily at bedtime LISINOPRIL 06641293146 No Longer Active Baltazar Childers MD Active ONETOUCH ULTRA BLUE IN VITRO STRIP Test twice a day 07/11/11 GLUCOSE BLOOD 94813091972 No Longer Active Baltazar Childers MD Acti ve TRUEPLUS LANCETS 33G Test twice a day LANCETS 8349906 6856 Active KENDALL Juarez Active TRUEDRAW LANCING DEVICE Test twice a day LANCET DEVICES 33061881645 Active Baltazar Childers MD Active TRUETRACK BLOOD GLUCOSE w/Device KIT Test twice a day BLOOD GLUCOSE MONITORING SUPPL 41264047042 Active Baltazar Childers MD Activ e HYDROCODONE-ACETAMINOPHEN 7.5-325 MG ORAL TABLET Take 1 tab every 6-8 hours PRN HYDROCODONE-ACETAMINOPHEN 39337995127 Active Ann maciel PA-C Active GABAPENTIN 300 MG ORAL CAPSULE 1 po qd x 2 days, then 1 po BID x 2 days, then 1 po TID GABAPENTIN 43570405884 No Longer Active Baltazar Childers MD Active TRAMADOL HCL 50 MG ORAL TABLET 1 twice a day as needed for pain 201 07/27/28 TRAMADOL HCL 48930635416 Active Baltazar Childers MD Active NAPROXEN 500 MG ORAL TABLET 1 tablet by mouth twice daily NAPROXEN 19722515077 No Longer Active Baltazar Childers MD Active PROAIR HFA 108 (90 Base) MCG/ACT INHALATION AEROSOL SO LUTION 2 puffs four times a day as needed ALBUTEROL SULFATE 93530107295 Active R gilberto Childers MD Active DEPO-TESTOSTERONE 200 MG/ML INTRAMUSCULAR SOLUTION as directed TESTOSTERONE CYPIONATE 61581503578 No Longer Active Baltazar Childers MD Active LIPITOR 20 MG ORAL TABLET Take one by mouth daily in evening ATORVASTATIN CALCIUM 82365554949 No Longer Active Baltazar Childers MD Active CRESTOR 10 MG ORAL TABLET 1 by mouth every day ROSUVASTATIN CALCIUM 94060003324 No Longer Active Baltazar Childers MD Active PHENTERMINE HCL 37.5 MG ORAL TABLET Take one by mouth daily PHENTERMINE HCL 97634171438 No Longer Active Baltazar Childers MD Ac tive ROBAXIN-750 750 MG ORAL TABLET Take one by mouth daily METHOCARBAMOL 06625271813 Active KENDALL Juarez Active TIZANIDINE HCL 4 MG ORAL TABLET 1 daily as needed for muscle spa sm TIZANIDINE HCL 41112003508 No Longer Active Dawna Salazar RN Active RSANYIYIEF-BSPX-[id number] 50-325-40 MG ORAL TABLET 1 fo ur times a day as needed for heacache SMHFUOORYR-NOIQ-[id number] 50091565021 Active Baltazar Childers MD Active SUMATRIPTAN SUCCINATE 100 MG ORAL TABLET 1 tablet by m outh at onset of migraine as needed SUMATRIPTAN SUCCINATE 70509458620 Active KENDALL Restrepo Active LORATADINE 10 MG ORAL TABLET Take one by mouth daily LORATADINE 02614600885 Active KENDALL Juarez Active OMEPRAZOLE 20 MG ORAL CAPSULE DELAYED RELEASE Take one by mouth jostin ly OMEPRAZOLE 32120025585 Active Ann Martinez PA-C Active HYDROXYZINE HCL 25 MG ORAL TABLET Take one by mouth daily HYDROXYZINE HCL 66517531084 Active Baltazar Childers MD Active ALPRAZOLAM 1 MG ORAL TABLET 1 [facility] ALPRAZOLAM 89248772606 Active Baltazar Childers MD Active METFORMIN HCL 1000 MG ORAL TABLET Take one by mouth twice daily METFORMIN HCL 35589440452 Active Baltazar Childers MD Active TIZANIDINE HCL 4 MG ORAL TABLET 1 daily as needed for muscle spa sm TIZANIDINE HCL 4 MG ORAL TABLET 785414 TIZANIDINE HCL Inactive PHENTERMINE HCL 37.5 MG ORAL TABLET Take one by mouth daily PHENTERMINE HCL 37.5 MG ORAL TABLET 786215 PHENTERMINE HCL Inac tive CRESTOR 10 MG ORAL TABLET 1 by mouth every day CRESTOR 10 MG ORAL TABLET 475441 ROSUVASTATIN CALCIUM Inactive LIPITOR 20 MG ORAL TABLET Take one by mouth daily in evening LIPITOR 20 MG ORAL TABLET 455978 ATORVASTATIN CALCIUM Inactive DEPO-TESTOSTERONE 200 MG/ML INTRAMUSCULAR SOLUTION as directed DEPO-TESTOSTERONE 200 MG/ML INTRAMUSCULAR SOLUTION 2832099 RUFINO TOSTERONE CYPIONATE Inactive NAPROXEN 500 MG ORAL TABLET 1 tablet by mouth twice daily NAPROXEN 500 MG ORAL TABLET 528171 NAPROXEN Inactive GABAPENTIN 300 MG ORAL CAPSULE 1 po qd x 2 days, then 1 po BID x 2 days, then 1 po TID GABAPENTIN 300 MG ORAL CAPSULE 769194 GABAP ENTIN Inactive ONETOUCH ULTRA BLUE IN VITRO STRIP Test twice a day 07/11/11 ONETOUCH ULTRA BLUE IN VITRO STRIP GLUCOSE BLOOD Inact amie NAPROXEN SODIUM 220 MG ORAL TABLET 1 three times a day as needed NAPROXEN SODIUM 220 MG ORAL TABLET 235422 NAPROXEN SODI UM Inactive TOUJEO SOLOSTAR 300 UNIT/ML SUBCUTANEOUS SOLUTION PEN- INJECTOR 10 units SC daily TOUJEO SOLOSTAR 300 UNIT/ML SUBCUTANEOUS SOLUTION PEN-INJECTOR INSULIN GLARGINE Inactive SUCRALFATE 1 GM ORAL TABLET 1 four times a day to coat the stoma SUCRALFATE 1 GM ORAL TABLET 908016 SUCRALFATE Inac tive GABAPENTIN 300 MG ORAL CAPSULE 1 three times a day 201 12/03/26 GABAPENTIN 300 MG ORAL CAPSULE 608546 GABAPENTIN Inactive ZITHROMAX Z-ISAIAS 250 MG ORAL TABLET Take two tablets to day and then 1 tablet daily for 4 days ZITHROMAX Z-ISAIAS 250 MG ORAL TAB LET 875955 AZITHROMYCIN Inactive Immunizations Vaccine Administration Date Value Standard Floyd cription pneumococcal immunization administered Pneumovax 23 [CVX33] pneumococcal polysaccharide vaccine, 23 valent Seasonal influenza vaccine, injectable, containing preservative, for > 3 years old (Afluria, FluLaval, Fluzone, Fluvirin, Fluarix, Agriflu(>= 18 yo)) Fluzone (>3 yrs.) [TNP131] Influenza, seasonal, inject able Seasonal influenza vaccine, injectable, containing preservative, for > 3 years old (Afluria, FluLaval, Fluzone, Fluvirin, Fluarix, Agriflu(>= 18 yo)) Fluzone (>3 yrs.) [ZFB963] Influenza, seasonal, inject able Vital Signs Date [...] - Chem istry sodium, serum 139 mmol/L 963-375 1479/10/03 potassium, serum 4.7 mmol/L 3.5-5.2 chloride, serum 98 mmol/L 98-107 carbon dioxide, venous blood 28.7 mmol/L 21.0-32 .0 blood glucose 218 mg/dL 65-110 calcium, serum 9.8 mg/dL 8.5-10.1 urea nitrogen, blood 19 mg/dL 7-18 creatinine, serum 1.68 mg/dL 0.60-1.30 sodium, serum 139 mmol/L 572-182 4072/06/26 potassium, serum 4.8 mmol/L 3.5-5.2 chloride, serum [...] (L) - Chemistry cholesterol, serum 209 mg/dL 810-870 9589/12/27 triglyceride, serum, fasting 329 mg/dL 30-200 HDL cholesterol, serum 56 mg/dL 32-60 LDL cholesterol, serum 87 mg/dL 0-130 TSH 3.60 m[iU]/mL 0.36-3.74 Lab Report: Thyroid Stimulating Hormone (L) - Chemistry TSH 8.56 m[iU]/mL 0.36-3.74 Office Visit: Meds Check - Toxicology drug screen, urine, qualitative negative Encounters Code Encounter Date Provider Facility CPT-86574 Level 4 Est. Patient 17:26:08 CDT Ann trujillo PA-C [facility] CPT-67906 39852-Sop Vst-Est Level V 14:26:27 CDT Aneudy Childers MD [facility] CPT-32693 Level 4 Est. Patient 17:05:37 CDT Baltazar Childers MD [facility] CPT-57661 Level 4 Est. Patient 16:21:19 CLIENT MANAGER Baltazar Childers MD [facility] CPT-63165 Level 4 Est. Patient 12:25:11 CDT Baltazar Childers MD [facility] CPT-72766 Level 4 Est. Patient 14:22:31 CDT Baltazar Childers MD [facility] CPT-01378 Level 4 Est. Patient 15:44:38 CDT Shonna Parker APRN [facility]-02606 Level 4 Est. Patient 11:34:17 CDT Baltazar Childers MD [facility]-94131 Level 3 Est. Patient 16:40:40 CDT Baltazar Childers MD [facility]-15704 Level 4 Est. Patient 10:41:24 CDT Baltazar Childers MD [facility]-94991 Level 4 Est. Patient 16:01:48 CDT Baltazar Childers MD [facility]-44857 Level 4 Est. Patient 16:54:07 CLIENT MANAGER Baltazar Childers MD [facility]-40991 Level 4 Est. Patient 15:42:12 CDT Baltazar Childers MD [facility] CPT-80999 Level 4 Est. Patient 11:29:55 CDT Baltazar Childers MD [facility]-26544 Level 4 Est. Patient 14:15:19 CDT Baltazar Childers MD [facility] CPT-05584 Level 4 Est. Patient 12:20:13 CDT Baltazar Childers MD [facility]-92291 Level 4 Est. Patient 14:52:45 CLIENT MANAGER Baltazar Childers MD [facility] CPT-56261 Level 4 Est. Patient 14:18:34 CLIENT MANAGER Baltazar Childers MD [facility]-88586 Level 4 Est. Patient 15:18:29 CDT Baltazar Childers MD [facility]-59929 Level 3 Est. Patient 12:45:34 CDT Baltazar Childers MD [facility]-05882 Level 3 Est. Patient 10:10:11 CDT Baltazar Childers MD [facility]-33820 Level 3 Est. Patient 14:07:50 CDT Baltazar Childers MD [facility] CPT-43069 Level 4 Est. Patient 12:26:10 CLIENT MANAGER Baltazar Childers MD [facility] CPT-30922 Level 4 Est. Patient 14:45:38 CDT Baltazar Childers MD [facility] CPT-75302 Level 4 New Patient 12:30:48 CDT Baltazar hinton MD [facility] Procedures Code Procedure Name Date Entry Date Standard Desc ription CPT-000 Give Appropriate Flu Vaccine 12:25:14 CDT 2 CPT-27462 First Vx - Ix admin via ID I M or jet injects without counseling by physician 13:08:59 CDT CPT-32242 Fluzone Quadrivalent Intramuscular Suspe nsion 0.5 ML 13:08:59 CDT CPT-09115 Venipuncture Draw Fee 12:04:12 CDT CPT-33042 Lipid - LAB USE ONLY 17:39:15 CLIENT MANAGER 9 CPT-60801 HGBA1C - LAB USE ONLY 17:39:15 CLIENT MANAGER CPT-48515 CMP - LAB USE ONLY 17:39:14 CLIENT MANAGER CPT-61747 Venipuncture Draw Fee 17:39:14 CLIENT MANAGER CPT-87175 First Vx - Ix admin via ID I M or jet injects without counseling by physician 16:55:17 CLIENT MANAGER CPT-31509 Fluzone Quadrivalent Intramuscular Suspe nsion 0.5 ML 16:55:17 CLIENT MANAGER CPT-35360 Renal Panel - LAB USE ONLY 17:39:20 CDT 201 10/31/07 CPT-40423 CBC - LAB USE ONLY 17:39:20 CDT CPT-06708 Venipuncture Draw Fee 17:39:20 CDT CPT-01778 Venipuncture Draw Fee 14:33:30 CDT CPT-22987 Renal Panel - LAB USE ONLY 14:33:30 CDT 201 10/31/07 CPT-15422 CBC - LAB USE ONLY 14:33:29 CDT CPT-67192 Venipuncture Draw Fee 14:50:21 CLIENT MANAGER CPT-04636 Immunization Single Admin 17:35:35 CDT 2014 CPT-94468 Fluzone Quadrivalent preservative free ( >=3yrs.) 17:35:35 CDT CPT-07179 Venipuncture Draw Fee 12:10:27 CLIENT MANAGER CPT-69283 Fluzone Quadrivalent Intramuscular Suspe nsion 0.5 ML 10:49:13 CDT CPT-42161 First Vx Component - Ix admi n via ID IM or jet inj without physician counseling 15:17:19 CLIENT MANAGER CPT-63383 Pneumovax 23 15:17:19 CLIENT MANAGER CPT-00141 Pneumovax 14:52:45 CLIENT MANAGER CPT-84482 Venipuncture Draw Fee 14:06:30 CLIENT MANAGER CPT-000 Give Appropriate Flu Vaccine 14:18:34 CLIENT MANAGER 2 CPT-68423 Administration single or combination vac cine inc oral 14:46:00 CLIENT MANAGER CPT-16336 Influenza split virus > age 3 14:46:00 CLIENT MANAGER CPT-OV Office Visit 19:13:16 CDT CPT-73127 Zostavax 18:41:56 CDT CPT-39821 Administration single or combination vac cine inc oral 12:56:39 CDT CPT-78474 Zoster Vaccine (Zostavax) 12:56:39 CDT 2012 CPT-71626 Venipuncture Draw Fee 10:58:57 CDT CPT-39215 Sono pelvis non OB uterus ovaries cervix 17:45:04 CDT CPT-57817 Sono retroperitoneal complete kidneys an d bladder 17:14:36 CDT CPT-OV Office Visit 14:59:38 CLIENT MANAGER CPT-J1070 Depo Testosterone 100 mg 14:50:13 CDT 03/05 CPT-14912 Abx/Therapy Injection 14:50:13 CDT CPT-99952 Administration single or combination vac cine inc oral 14:34:43 CDT CPT-54921 Influenza split virus > age 3 14:34:43 CDT CPT-J1070 Depo Testosterone 100 mg 17:37:13 CDT 01/11 CPT-60359 Abx/Therapy Injection 17:37:13 CDT CPT-05451 Venipuncture Draw Fee 16:30:13 CDT CPT-19976 Venipuncture Draw Fee 16:29:43 CDT CPT-J1070 Depo Testosterone 100 mg 14:45:38 CDT 01/11
--- OUTSIDE RECORDS SUMMARY | 2019-10-27 12:00 | XMS REPORT | Clinical Summary ---
Author Author Admin, Elba Lance Michelle [facility] Address Unknown Phone Unavailable Allergies, Adverse [...] ronary atherosclerosis of unspecified type of vessel, elem or graft OTH NONSPC ABN FINDNG RAD&OTH [...] Use as directed BLOOD GLUCOSE MONITORING SUPPL 04075066107 Active Baltazar Childers MD Activ e TRUE METRIX BLOOD GLUCOSE TEST IN VITRO STRIP test blood sug ar BID Dx: E11.65 GLUCOSE BLOOD 63553537101 Active Ct Ledesma [place] Active NORTRIPTYLINE HCL 50 MG ORAL CAPSULE 1 twice a day for neuropathy 2 NORTRIPTYLINE HCL 56713445632 Active Ann Martinez PA-C Act amie ASPIRIN 81 MG TBEC Take one (1) tablet by mouth daily ASPIRIN 14647662338 Active Baltazar Childers MD Active GABAPENTIN 300 MG ORAL CAPSULE 1 three times a day 201 12/03/26 GABAPENTIN 57753100383 No Longer Active aBltazar Childers MD Activ e LISINOPRIL 20 MG ORAL TABLET 1 tablet by mouth daily at night 2016 LISINOPRIL 64414046886 Active Ann Martinez PA-C Active ZITHROMAX Z-ISAIAS 250 MG ORAL TABLET Take two tablets to day and then 1 tablet daily for 4 days AZITHROMYCIN 13507954038 No Longer A ctive Baltazar Childers MD Active LANTUS SOLOSTAR 100 UNIT/ML SUBCUTANEOUS SOLUTION PEN- INJECTOR 30 units SC daily INSULIN GLARGINE 32813659837 Active Baltazar Childers MD Active AMLODIPINE BESYLATE 5 MG ORAL TABLET 1 tab daily for HTN AMLODIPINE BESYLATE 54957041854 Active Ann Martinez PA-C Active SYNTHROID 100 MCG ORAL TABLET 1 tablet by mouth daily LEVOTHYROXINE SODIUM 91371843362 Active nAn Martinez PA-C Active GLIPIZIDE 10 MG ORAL TABLET take 2 tablets twice daily GLIPIZIDE 43610485290 Active Baltazar Childers MD Active SUCRALFATE 1 GM ORAL TABLET 1 four times a day to coat the stoma ch SUCRALFATE 61655741256 No Longer Active Baltazar Childers MD Active PEN NEEDLES 31G X 6 MM use 1 daily INSULIN PEN NE EDLE 48980895471 Active KENDALL Juarez Active TOURINKUO SOLOSTAR 300 UNIT/ML SUBCUTANEOUS SOLUTION PEN- INJECTOR 10 units SC daily INSULIN GLARGINE 04732326748 No Longer Active Rola ARGUETA Active NAPROXEN SODIUM 220 MG ORAL TABLET 1 three times a day as needed NAPROXEN SODIUM 17239955010 No Longer Active Baltazar Childers MD Active ATORVASTATIN CALCIUM 20 MG ORAL TABLET Take 1 tab daily ATORVASTATIN CALCIUM 98245662049 Active Baltazar Childers MD A ctive FUROSEMIDE 40 MG ORAL TABLET Take one by mouth daily FUROSEMIDE 10272583667 Active Baltazar Childers MD Active LISINOPRIL 20 MG ORAL TABLET Take one by mouth daily at bedtime LISINOPRIL 01961380186 No Longer Active Baltazar Childers MD Active ONETOUCH ULTRA BLUE IN VITRO STRIP Test twice a day 07/11/11 GLUCOSE BLOOD 67623337451 No Longer Active Baltazar Childers MD Acti ve TRUEPLUS LANCETS 33G Test twice a day LANCETS 1077157 6002 Active KENDALL Juarez Active TRUEDRAW LANCING DEVICE Test twice a day LANCET DEVICES 62690552307 Active Baltazar Childers MD Active TRUETRACK BLOOD GLUCOSE w/Device KIT Test twice a day BLOOD GLUCOSE MONITORING SUPPL 46187806626 Active Baltazar Childers MD Activ e HYDROCODONE-ACETAMINOPHEN 7.5-325 MG ORAL TABLET Take 1 tab every 6-8 hours PRN HYDROCODONE-ACETAMINOPHEN 80885352548 Active Ann maciel PA-C Active GABAPENTIN 300 MG ORAL CAPSULE 1 po qd x 2 days, then 1 po BID x 2 days, then 1 po TID GABAPENTIN 32893882582 No Longer Active Baltazar Childers MD Active TRAMADOL HCL 50 MG ORAL TABLET 1 twice a day as needed for pain 201 07/27/28 TRAMADOL HCL 35245292944 Active Baltazar Childers MD Active NAPROXEN 500 MG ORAL TABLET 1 tablet by mouth twice daily NAPROXEN 12575034082 No Longer Active Baltazar Childers MD Active PROAIR HFA 108 (90 Base) MCG/ACT INHALATION AEROSOL SO LUTION 2 puffs four times a day as needed ALBUTEROL SULFATE 01448445159 Active R gilberto Childers MD Active DEPO-TESTOSTERONE 200 MG/ML INTRAMUSCULAR SOLUTION as directed TESTOSTERONE CYPIONATE 87185155004 No Longer Active Baltazar Childers MD Active LIPITOR 20 MG ORAL TABLET Take one by mouth daily in evening ATORVASTATIN CALCIUM 91927778184 No Longer Active Baltazar Childers MD Active CRESTOR 10 MG ORAL TABLET 1 by mouth every day ROSUVASTATIN CALCIUM 26412716692 No Longer Active Baltazar Childers MD Active PHENTERMINE HCL 37.5 MG ORAL TABLET Take one by mouth daily PHENTERMINE HCL 62591496012 No Longer Active Baltazar Childers MD Ac tive ROBAXIN-750 750 MG ORAL TABLET Take one by mouth daily METHOCARBAMOL 01397374138 Active KENDALL Juarez Active TIZANIDINE HCL 4 MG ORAL TABLET 1 daily as needed for muscle spa sm TIZANIDINE HCL 84432164340 No Longer Active Dawna Salazar RN Active [id number] 50-325-40 MG ORAL TABLET 1 fo ur times a day as needed for heacache [id number] 79489683034 Active Baltazar Childers MD Active SUMATRIPTAN SUCCINATE 100 MG ORAL TABLET 1 tablet by m outh at onset of migraine as needed SUMATRIPTAN SUCCINATE 13321372894 Active KENDALL Restrepo Active LORATADINE 10 MG ORAL TABLET Take one by mouth daily LORATADINE 61205550635 Active KENDALL Juarez Active OMEPRAZOLE 20 MG ORAL CAPSULE DELAYED RELEASE Take one by mouth jostin ly OMEPRAZOLE 95375262391 Active Ann Martinez PA-C Active HYDROXYZINE HCL 25 MG ORAL TABLET Take one by mouth daily HYDROXYZINE HCL 14759612760 Active Baltazar Childers MD Active ALPRAZOLAM 1 MG ORAL TABLET 1 [facility] 35741608740 Active Baltazar Childers MD Active METFORMIN HCL 1000 MG ORAL TABLET Take one by mouth twice daily METFORMIN HCL 89032340790 Active Baltazar Childers MD Active TIZANIDINE HCL 4 MG ORAL TABLET 1 daily as needed for muscle spa sm TIZANIDINE HCL 4 MG ORAL TABLET 880627 TIZANIDINE HCL Inactive PHENTERMINE HCL 37.5 MG ORAL TABLET Take one by mouth daily PHENTERMINE HCL 37.5 MG ORAL TABLET 593493 PHENTERMINE HCL Inac tive CRESTOR 10 MG ORAL TABLET 1 by mouth every day CRESTOR 10 MG ORAL TABLET 137014 ROSUVASTATIN CALCIUM Inactive LIPITOR 20 MG ORAL TABLET Take one by mouth daily in evening LIPITOR 20 MG ORAL TABLET 961389 ATORVASTATIN CALCIUM Inactive DEPO-TESTOSTERONE 200 MG/ML INTRAMUSCULAR SOLUTION as directed DEPO-TESTOSTERONE 200 MG/ML INTRAMUSCULAR SOLUTION 1191707 RUFINO TOSTERONE CYPIONATE Inactive NAPROXEN 500 MG ORAL TABLET 1 tablet by mouth twice daily NAPROXEN 500 MG ORAL TABLET 437955 NAPROXEN Inactive GABAPENTIN 300 MG ORAL CAPSULE 1 po qd x 2 days, then 1 po BID x 2 days, then 1 po TID GABAPENTIN 300 MG ORAL CAPSULE 997400 GABAP ENTIN Inactive ONETOUCH ULTRA BLUE IN VITRO STRIP Test twice a day 07/11/11 ONETOUCH ULTRA BLUE IN VITRO STRIP GLUCOSE BLOOD Inact amie NAPROXEN SODIUM 220 MG ORAL TABLET 1 three times a day as needed NAPROXEN SODIUM 220 MG ORAL TABLET 238619 NAPROXEN SODI UM Inactive TOUJEO SOLOSTAR 300 UNIT/ML SUBCUTANEOUS SOLUTION PEN- INJECTOR 10 units SC daily TOUJEO SOLOSTAR 300 UNIT/ML SUBCUTANEOUS SOLUTION PEN-INJECTOR INSULIN GLARGINE Inactive SUCRALFATE 1 GM ORAL TABLET 1 four times a day to coat the stoma ch SUCRALFATE 1 GM ORAL TABLET 212899 SUCRALFATE Inac tive GABAPENTIN 300 MG ORAL CAPSULE 1 three times a day 201 12/03/26 GABAPENTIN 300 MG ORAL CAPSULE 810797 GABAPENTIN Inactive ZITHROMAX Z-ISAIAS 250 MG ORAL TABLET Take two tablets to day and then 1 tablet daily for 4 days ZITHROMAX Z-ISAIAS 250 MG ORAL TAB LET 265975 AZITHROMYCIN Inactive Immunizations Vaccine Administration Date Value Standard Floyd cription pneumococcal immunization administered Pneumovax 23 [CVX33] pneumococcal polysaccharide vaccine, 23 valent Seasonal influenza vaccine, injectable, containing preservative, for > 3 years old (Afluria, FluLaval, Fluzone, Fluvirin, Fluarix, Agriflu(>= 18 yo)) Fluzone (>3 yrs.) [WQX477] Influenza, seasonal, inject able Seasonal influenza vaccine, injectable, containing preservative, for > 3 years old (Afluria, FluLaval, Fluzone, Fluvirin, Fluarix, Agriflu(>= 18 yo)) Fluzone (>3 yrs.) [CXS086] Influenza, seasonal, inject able Vital Signs Date [...] - Chem istry sodium, serum 139 mmol/L 312-831 5900/10/03 potassium, serum 4.7 mmol/L 3.5-5.2 chloride, serum 98 mmol/L 98-107 carbon dioxide, venous blood 28.7 mmol/L 21.0-32 .0 blood glucose 218 mg/dL 65-110 calcium, serum 9.8 mg/dL 8.5-10.1 urea nitrogen, blood 19 mg/dL 7-18 creatinine, serum 1.68 mg/dL 0.60-1.30 sodium, serum 139 mmol/L 762-845 9166/06/26 potassium, serum 4.8 mmol/L 3.5-5.2 chloride, serum [...] (L) - Chemistry cholesterol, serum 209 mg/dL 219-336 1031/12/27 triglyceride, serum, fasting 329 mg/dL 30-200 HDL cholesterol, serum 56 mg/dL 32-60 LDL cholesterol, serum 87 mg/dL 0-130 TSH 3.60 m[iU]/mL 0.36-3.74 Lab Report: Thyroid Stimulating Hormone (L) - Chemistry TSH 8.56 m[iU]/mL 0.36-3.74 Office Visit: Meds Check - Toxicology drug screen, urine, qualitative negative Encounters Code Encounter Date Provider Facility CPT-55932 Level 4 Est. Patient 17:26:08 CDT Ann trujillo PA-C [facility] CPT-85278 [id number] Vst-Est Level V 14:26:27 CDT Aneudy Childers MD [facility] CPT-78200 Level 4 Est. Patient 17:05:37 CDT Baltazar Childers MD [facility] CPT-24410 Level 4 Est. Patient 16:21:19 FACING GRINDER Baltazar Childers MD [facility] CPT-87001 Level 4 Est. Patient 12:25:11 CDT Baltazar Childers MD [facility] CPT-75138 Level 4 Est. Patient 14:22:31 CDT Baltazar Childers MD [facility] CPT-82911 Level 4 Est. Patient 15:44:38 CDT Shonna Parker APRN [facility] CPT-39128 Level 4 Est. Patient 11:34:17 CDT Baltazar Childers MD [facility]-57571 Level 3 Est. Patient 16:40:40 CDT Baltazar Childers MD [facility]-72227 Level 4 Est. Patient 10:41:24 CDT Baltazar Childers MD [facility]-35609 Level 4 Est. Patient 16:01:48 CDT Baltazar Childers MD [facility]-53703 Level 4 Est. Patient 16:54:07 FACING GRINDER Baltazar Childers MD [facility]-98394 Level 4 Est. Patient 15:42:12 CDT Baltazar Childers MD [facility] CPT-82814 Level 4 Est. Patient 11:29:55 CDT Baltazar Childers MD [facility] CPT-07534 Level 4 Est. Patient 14:15:19 CDT Baltazar Childers MD [facility] CPT-78031 Level 4 Est. Patient 12:20:13 CDT Baltazar Childers MD [facility]-83782 Level 4 Est. Patient 14:52:45 FACING GRINDER Baltazar Childers MD [facility] CPT-78872 Level 4 Est. Patient 14:18:34 FACING GRINDER Baltazar Childers MD [facility]-81709 Level 4 Est. Patient 15:18:29 CDT Baltazar Childers MD [facility]-40310 Level 3 Est. Patient 12:45:34 CDT Baltazar Childers MD [facility]-89177 Level 3 Est. Patient 10:10:11 CDT Baltazar Childers MD [facility]-11437 Level 3 Est. Patient 14:07:50 CDT Baltazar Childers MD [facility] CPT-70666 Level 4 Est. Patient 12:26:10 FACING GRINDER Baltazar Childers MD [facility] CPT-84951 Level 4 Est. Patient 14:45:38 CDT Baltazar Childers MD [facility] CPT-74297 Level 4 New Patient 12:30:48 CDT Baltazar hinton MD [facility] Procedures Code Procedure Name Date Entry Date Standard Desc ription CPT-000 Give Appropriate Flu Vaccine 12:25:14 CDT 2 CPT-29057 First Vx - Ix admin via ID I M or jet injects without counseling by physician 13:08:59 CDT CPT-20379 Fluzone Quadrivalent Intramuscular Suspe nsion 0.5 ML 13:08:59 CDT CPT-33592 Venipuncture Draw Fee 12:04:12 CDT CPT-47179 Lipid - LAB USE ONLY 17:39:15 FACING GRINDER 9 CPT-94865 HGBA1C - LAB USE ONLY 17:39:15 FACING GRINDER CPT-63777 CMP - LAB USE ONLY 17:39:14 FACING GRINDER CPT-62007 Venipuncture Draw Fee 17:39:14 FACING GRINDER CPT-42117 First Vx - Ix admin via ID I M or jet injects without counseling by physician 16:55:17 FACING GRINDER CPT-71407 Fluzone Quadrivalent Intramuscular Suspe nsion 0.5 ML 16:55:17 FACING GRINDER CPT-21583 Renal Panel - LAB USE ONLY 17:39:20 CDT 201 10/31/07 CPT-51908 CBC - LAB USE ONLY 17:39:20 CDT CPT-78846 Venipuncture Draw Fee 17:39:20 CDT CPT-33977 Venipuncture Draw Fee 14:33:30 CDT CPT-85801 Renal Panel - LAB USE ONLY 14:33:30 CDT 201 10/31/07 CPT-11426 CBC - LAB USE ONLY 14:33:29 CDT CPT-59245 Venipuncture Draw Fee 14:50:21 FACING GRINDER CPT-98113 Immunization Single Admin 17:35:35 CDT 2014 CPT-86959 Fluzone Quadrivalent preservative free ( >=3yrs.) 17:35:35 CDT CPT-78717 Venipuncture Draw Fee 12:10:27 FACING GRINDER CPT-68408 Fluzone Quadrivalent Intramuscular Suspe nsion 0.5 ML 10:49:13 CDT CPT-66969 First Vx Component - Ix admi n via ID IM or jet inj without physician counseling 15:17:19 FACING GRINDER CPT-18921 Pneumovax 23 15:17:19 FACING GRINDER CPT-71236 Pneumovax 14:52:45 FACING GRINDER CPT-64780 Venipuncture Draw Fee 14:06:30 FACING GRINDER CPT-000 Give Appropriate Flu Vaccine 14:18:34 FACING GRINDER 2 CPT-91933 Administration single or combination vac cine inc oral 14:46:00 FACING GRINDER CPT-98911 Influenza split virus > age 3 14:46:00 FACING GRINDER CPT-OV Office Visit 19:13:16 CDT CPT-26713 Zostavax 18:41:56 CDT CPT-75900 Administration single or combination vac cine inc oral 12:56:39 CDT CPT-80002 Zoster Vaccine (Zostavax) 12:56:39 CDT 2012 CPT-82453 Venipuncture Draw Fee 10:58:57 CDT CPT-48775 Sono pelvis non OB uterus ovaries cervix 17:45:04 CDT CPT-66770 Sono retroperitoneal complete kidneys an d bladder 17:14:36 CDT CPT-OV Office Visit 14:59:38 FACING GRINDER CPT-J1070 Depo Testosterone 100 mg 14:50:13 CDT 03/05 CPT-16692 Abx/Therapy Injection 14:50:13 CDT CPT-93792 Administration single or combination vac cine inc oral 14:34:43 CDT CPT-19275 Influenza split virus > age 3 14:34:43 CDT CPT-J1070 Depo Testosterone 100 mg 17:37:13 CDT 01/11 CPT-50585 Abx/Therapy Injection 17:37:13 CDT CPT-59185 Venipuncture Draw Fee 16:30:13 CDT CPT-68120 Venipuncture Draw Fee 16:29:43 CDT CPT-J1070 Depo Testosterone 100 mg 14:45:38 CDT 01/11
--- OUTSIDE RECORDS SUMMARY | 2019-10-27 12:00 | XMS REPORT | Clinical Summary ---
Author Author Admin, Elba Lance Amiato Address Unknown Phone Unavailable Allergies, Adverse Reactions, [...] ronary atherosclerosis of unspecified type of vessel, [place] or graft OTH NONSPC ABN FINDNG RAD&OTH EXM BODY STRUCTURE 793.99 11/08 Active Jessy Ruiz Other nonspecific (a bnormal) findings on radiological and other examinations of body structure NEED PROPH VACC&INOCULAT AGNST OTH SPEC DISEASE V05.8 0 Active Elba Ryan RMBetsey Need for prophylacti c vaccination and inoculation [...] Use as directed BLOOD GLUCOSE MONITORING SUPPL 64020525347 Active Baltazar Childers MD Activ e TRUE METRIX BLOOD GLUCOSE TEST IN VITRO STRIP test blood sug ar BID Dx: E11.65 GLUCOSE BLOOD 05278469691 Active Ct Ledesma [place] Active NORTRIPTYLINE HCL 50 MG ORAL CAPSULE 1 twice a day for neuropathy 2 NORTRIPTYLINE HCL 41503040300 Active Baltazar Childers MD Acti ve ASPIRIN 81 MG TBEC Take one (1) tablet by mouth daily ASPIRIN 25984401675 Active Baltazar Childers MD Active GABAPENTIN 300 MG ORAL CAPSULE 1 three times a day 201 12/03/26 GABAPENTIN 35384949755 No Longer Active Baltazar Childers MD Activ e LISINOPRIL 20 MG ORAL TABLET 1 tablet by mouth daily at night 2016 LISINOPRIL 90065652412 Active Baltazar Childers MD Active ZITHROMAX Z-ISAIAS 250 MG ORAL TABLET Take two tablets to day and then 1 tablet daily for 4 days AZITHROMYCIN 81447339565 No Longer A ctive Baltazar Childers MD Active LANTUS SOLOSTAR 100 UNIT/ML SUBCUTANEOUS SOLUTION PEN- INJECTOR 30 units SC daily INSULIN GLARGINE 85533919983 Active Baltazar Childers MD Active AMLODIPINE BESYLATE 5 MG ORAL TABLET 1 tab daily for HTN AMLODIPINE BESYLATE 74964318775 Active Baltazar Childers MD Active SYNTHROID 100 MCG ORAL TABLET 1 tablet by mouth daily LEVOTHYROXINE SODIUM 01861999748 Active Baltazar Childers MD Active GLIPIZIDE 10 MG ORAL TABLET take 2 tablets twice daily GLIPIZIDE 07146382599 Active Baltazar Childers MD Active SUCRALFATE 1 GM ORAL TABLET 1 four times a day to coat the stoma ch SUCRALFATE 34347179520 No Longer Active Baltazar Childers MD Active PEN NEEDLES 31G X 6 MM use 1 daily INSULIN PEN NE EDLE 47652554250 Active KENDALL Juarez Active CELINA POWERSOSTAR 300 UNIT/ML SUBCUTANEOUS SOLUTION PEN- INJECTOR 10 units SC daily INSULIN GLARGINE 79337965538 No Longer Active Rola Guerraabhilash ARGUETA Active NAPROXEN SODIUM 220 MG ORAL TABLET 1 three times a day as needed NAPROXEN SODIUM 72286925305 No Longer Active Baltazar Childers MD Active ATORVASTATIN CALCIUM 20 MG ORAL TABLET Take 1 tab daily ATORVASTATIN CALCIUM 76186486425 Active Baltazar Childers MD A ctive FUROSEMIDE 40 MG ORAL TABLET Take one by mouth daily FUROSEMIDE 90134148396 Active Baltazar Childers MD Active LISINOPRIL 20 MG ORAL TABLET Take one by mouth daily at bedtime LISINOPRIL 30118812145 No Longer Active Baltazar Childers MD Active ONETOUCH ULTRA BLUE IN VITRO STRIP Test twice a day 07/11/11 GLUCOSE BLOOD 53441931380 No Longer Active Baltazar Childers MD Acti ve TRUEPLUS LANCETS 33G Test twice a day LANCETS 2594337 9755 Active KENDALL Juarez Active TRUEDRAW LANCING DEVICE Test twice a day LANCET DEVICES 10698506013 Active Baltazar Childers MD Active TRUETRACK BLOOD GLUCOSE w/Device KIT Test twice a day BLOOD GLUCOSE MONITORING SUPPL 50362682665 Active Baltazar Childers MD Activ e HYDROCODONE-ACETAMINOPHEN 7.5-325 MG ORAL TABLET Take 1 tab every 6-8 hours PRN HYDROCODONE-ACETAMINOPHEN 83395156969 Active Baltazar Nickerson MD Active GABAPENTIN 300 MG ORAL CAPSULE 1 po qd x 2 days, then 1 po BID x 2 days, then 1 po TID GABAPENTIN 70947690943 No Longer Active Baltazar Childers MD Active TRAMADOL HCL 50 MG ORAL TABLET 1 twice a day as needed for pain 201 07/27/28 TRAMADOL HCL 93525167923 Active Baltazar Childers MD Active NAPROXEN 500 MG ORAL TABLET 1 tablet by mouth twice daily NAPROXEN 24538325435 No Longer Active Baltazar Childers MD Active PROAIR HFA 108 (90 Base) MCG/ACT INHALATION AEROSOL SO LUTION 2 puffs four times a day as needed ALBUTEROL SULFATE 07586012638 Active R gilberto Childers MD Active DEPO-TESTOSTERONE 200 MG/ML INTRAMUSCULAR SOLUTION as directed TESTOSTERONE CYPIONATE 05154542191 No Longer Active Baltazar Childers MD Active LIPITOR 20 MG ORAL TABLET Take one by mouth daily in evening ATORVASTATIN CALCIUM 77542813465 No Longer Active Baltazar Childers MD Active CRESTOR 10 MG ORAL TABLET 1 by mouth every day ROSUVASTATIN CALCIUM 88615219289 No Longer Active Baltazar Childers MD Active PHENTERMINE HCL 37.5 MG ORAL TABLET Take one by mouth daily PHENTERMINE HCL 92516305420 No Longer Active Baltazar Childers MD Ac tive ROBAXIN-750 750 MG ORAL TABLET Take one by mouth daily METHOCARBAMOL 27710683159 Active KENDALL Juarez Active TIZANIDINE HCL 4 MG ORAL TABLET 1 daily as needed for muscle spa sm TIZANIDINE HCL 40548015124 No Longer Active Dawna Salazar RN Active [id number] 50-325-40 MG ORAL TABLET 1 fo ur times a day as needed for heacache [id number] 95048723956 Active Baltazar Childers MD Active SUMATRIPTAN SUCCINATE 100 MG ORAL TABLET 1 tablet by m outh at onset of migraine as needed SUMATRIPTAN SUCCINATE 06410985267 Active KENDALL Restrepo Active LORATADINE 10 MG ORAL TABLET Take one by mouth daily LORATADINE 95174522946 Active KENDALL Juarez Active OMEPRAZOLE 20 MG ORAL CAPSULE DELAYED RELEASE Take one by mouth jostin ly OMEPRAZOLE 55748830439 Active Baltazar Childers MD Active HYDROXYZINE HCL 25 MG ORAL TABLET Take one by mouth daily HYDROXYZINE HCL 96119681203 Active Baltazar Childers MD Active ALPRAZOLAM 1 MG ORAL TABLET 1 tablet by mouth daily at bedti fl for restless leg ALPRAZOLAM 30090859886 Active Baltazar Childers MD Active METFORMIN HCL 1000 MG ORAL TABLET Take one by mouth twice daily METFORMIN HCL 09881238497 Active Baltazar Childers MD Active TIZANIDINE HCL 4 MG ORAL TABLET 1 daily as needed for muscle spa sm TIZANIDINE HCL 4 MG ORAL TABLET 278400 TIZANIDINE HCL Inactive PHENTERMINE HCL 37.5 MG ORAL TABLET Take one by mouth daily PHENTERMINE HCL 37.5 MG ORAL TABLET 601746 PHENTERMINE HCL Inac tive CRESTOR 10 MG ORAL TABLET 1 by mouth every day CRESTOR 10 MG ORAL TABLET 561055 ROSUVASTATIN CALCIUM Inactive LIPITOR 20 MG ORAL TABLET Take one by mouth daily in evening LIPITOR 20 MG ORAL TABLET 254536 ATORVASTATIN CALCIUM Inactive DEPO-TESTOSTERONE 200 MG/ML INTRAMUSCULAR SOLUTION as directed DEPO-TESTOSTERONE 200 MG/ML INTRAMUSCULAR SOLUTION 8558608 RUFINO TOSTERONE CYPIONATE Inactive NAPROXEN 500 MG ORAL TABLET 1 tablet by mouth twice daily NAPROXEN 500 MG ORAL TABLET 834442 NAPROXEN Inactive GABAPENTIN 300 MG ORAL CAPSULE 1 po qd x 2 days, then 1 po BID x 2 days, then 1 po TID GABAPENTIN 300 MG ORAL CAPSULE 695000 GABAP ENTIN Inactive ONETOUCH ULTRA BLUE IN VITRO STRIP Test twice a day 07/11/11 ONETOUCH ULTRA BLUE IN VITRO STRIP GLUCOSE BLOOD Inact amie NAPROXEN SODIUM 220 MG ORAL TABLET 1 three times a day as needed NAPROXEN SODIUM 220 MG ORAL TABLET 980016 NAPROXEN SODI UM Inactive TOUJEO SOLOSTAR 300 UNIT/ML SUBCUTANEOUS SOLUTION PEN- INJECTOR 10 units SC daily TOUJEO SOLOSTAR 300 UNIT/ML SUBCUTANEOUS SOLUTION PEN-INJECTOR INSULIN GLARGINE Inactive SUCRALFATE 1 GM ORAL TABLET 1 four times a day to coat the stoma ch SUCRALFATE 1 GM ORAL TABLET 837436 SUCRALFATE Inac tive GABAPENTIN 300 MG ORAL CAPSULE 1 three times a day 201 12/03/26 GABAPENTIN 300 MG ORAL CAPSULE 541273 GABAPENTIN Inactive ZITHROMAX Z-ISAIAS 250 MG ORAL TABLET Take two tablets to day and then 1 tablet daily for 4 days ZITHROMAX Z-ISAIAS 250 MG ORAL TAB LET 532067 AZITHROMYCIN Inactive Immunizations Vaccine Administration Date Value Standard Floyd cription pneumococcal immunization administered Pneumovax 23 [CVX33] pneumococcal polysaccharide vaccine, 23 valent Seasonal influenza vaccine, injectable, containing preservative, for > 3 years old (Afluria, FluLaval, Fluzone, Fluvirin, Fluarix, Agriflu(>= 18 yo)) Fluzone (>3 yrs.) [VYQ553] Influenza, seasonal, inject able Seasonal influenza vaccine, injectable, containing preservative, for > 3 years old (Afluria, FluLaval, Fluzone, Fluvirin, Fluarix, Agriflu(>= 18 yo)) Fluzone (>3 yrs.) [LVQ297] Influenza, seasonal, inject able Vital Signs Date [...] - Chem istry sodium, serum 139 mmol/L 817-160 7410/10/03 potassium, serum 4.7 mmol/L 3.5-5.2 chloride, serum 98 mmol/L 98-107 carbon dioxide, venous blood 28.7 mmol/L 21.0-32 .0 blood glucose 218 mg/dL 65-110 calcium, serum 9.8 mg/dL 8.5-10.1 urea nitrogen, blood 19 mg/dL 7-18 creatinine, serum 1.68 mg/dL 0.60-1.30 sodium, serum 139 mmol/L 161-121 2786/06/26 potassium, serum 4.8 mmol/L 3.5-5.2 chloride, serum [...] (L) - Chemistry cholesterol, serum 209 mg/dL 493-339 5586/12/27 triglyceride, serum, fasting 329 mg/dL 30-200 HDL cholesterol, serum 56 mg/dL 32-60 LDL cholesterol, serum 87 mg/dL 0-130 TSH 3.60 m[iU]/mL 0.36-3.74 Office Visit: Meds Check - Toxicology drug screen, urine, qualitative negative Encounters Code Encounter Date Provider Facility CPT-61455 24860-[id number] Vst-Est Level V 14:26:27 CDT Aneudy Childers MD [facility] [place] CPT-56074 Level 4 Est. Patient 17:05:37 CDT Baltazar Childers MD [facility] [place] CPT-13747 Level 4 Est. Patient 16:21:19 FILL PLANT OPERATOR Baltazar Childers MD [facility] [place] CPT-92989 Level 4 Est. Patient 12:25:11 CDT Baltazar Childers MD [facility] [place] CPT-58351 Level 4 Est. Patient 14:22:31 CDT Baltazar Childers MD [facility] [place] CPT-42259 Level 4 Est. Patient 15:44:38 CDT Shonna Parker REFUSE LABORER [facility] [place] CPT-24819 Level 4 Est. Patient 11:34:17 CDT Baltazar Childers MD [facility] [place] CPT-61609 Level 3 Est. Patient 16:40:40 CDT Baltazar Childers MD [facility] [place] CPT-60988 Level 4 Est. Patient 10:41:24 CDT Baltazar Childers MD [facility] [place] CPT-16876 Level 4 Est. Patient 16:01:48 CDT Baltazar Childers MD [facility] [place] CPT-12546 Level 4 Est. Patient 16:54:07 FILL PLANT OPERATOR Baltazar Childers MD [facility] [place] CPT-70146 Level 4 Est. Patient 15:42:12 CDT Baltazar Childers MD [facility] CPT-44844 Level 4 Est. Patient 11:29:55 CDT Baltazar Childers MD [facility] CPT-00812 Level 4 Est. Patient 14:15:19 CDT Baltazar Childers MD [facility] CPT-91821 Level 4 Est. Patient 12:20:13 CDT Baltazar Childers MD [facility] CPT-78531 Level 4 Est. Patient 14:52:45 FILL PLANT OPERATOR Baltazar Childers MD [facility] CPT-81803 Level 4 Est. Patient 14:18:34 FILL PLANT OPERATOR Baltazar Childers MD [facility] CPT-80477 Level 4 Est. Patient 15:18:29 CDT Baltazar Childers MD [facility] CPT-28271 Level 3 Est. Patient 12:45:34 CDT Baltazar Childers MD [facility] CPT-60110 Level 3 Est. Patient 10:10:11 CDT Baltazar Childers MD [facility] CPT-08996 Level 3 Est. Patient 14:07:50 CDT Baltazar Childers MD [facility] CPT-66431 Level 4 Est. Patient 12:26:10 FILL PLANT OPERATOR Baltazar Childers MD [facility] CPT-42804 Level 4 Est. Patient 14:45:38 CDT Baltazar Childers MD [facility] CPT-27918 Level 4 New Patient 12:30:48 CDT Baltazar hinton MD [facility] Procedures Code Procedure Name Date Entry Date Standard Desc ription CPT-000 Give Appropriate Flu Vaccine 12:25:14 CDT 2 CPT-17535 First Vx - Ix admin via ID I M or jet injects without counseling by physician 13:08:59 CDT CPT-33599 Fluzone Quadrivalent Intramuscular Suspe nsion 0.5 ML 13:08:59 CDT CPT-82639 Venipuncture Draw Fee 12:04:12 CDT CPT-14324 Lipid - LAB USE ONLY 17:39:15 FILL PLANT OPERATOR 9 CPT-28413 HGBA1C - LAB USE ONLY 17:39:15 FILL PLANT OPERATOR CPT-38527 CMP - LAB USE ONLY 17:39:14 FILL PLANT OPERATOR CPT-37442 Venipuncture Draw Fee 17:39:14 FILL PLANT OPERATOR CPT-22190 First Vx - Ix admin via ID I M or jet injects without counseling by physician 16:55:17 FILL PLANT OPERATOR CPT-38811 Fluzone Quadrivalent Intramuscular Suspe nsion 0.5 ML 16:55:17 FILL PLANT OPERATOR CPT-15915 Renal Panel - LAB USE ONLY 17:39:20 CDT 201 10/31/07 CPT-90669 CBC - LAB USE ONLY 17:39:20 CDT CPT-51886 Venipuncture Draw Fee 17:39:20 CDT CPT-82643 Venipuncture Draw Fee 14:33:30 CDT CPT-80804 Renal Panel - LAB USE ONLY 14:33:30 CDT 201 10/31/07 CPT-73040 CBC - LAB USE ONLY 14:33:29 CDT CPT-74322 Venipuncture Draw Fee 14:50:21 FILL PLANT OPERATOR CPT-20447 Immunization Single Admin 17:35:35 CDT 2014 CPT-51841 Fluzone Quadrivalent preservative free ( >=3yrs.) 17:35:35 CDT CPT-26273 Venipuncture Draw Fee 12:10:27 FILL PLANT OPERATOR CPT-80474 Fluzone Quadrivalent Intramuscular Suspe nsion 0.5 ML 10:49:13 CDT CPT-81503 First Vx Component - Ix admi n via ID IM or jet inj without physician counseling 15:17:19 FILL PLANT OPERATOR CPT-55026 Pneumovax 23 15:17:19 FILL PLANT OPERATOR CPT-64294 Pneumovax 14:52:45 FILL PLANT OPERATOR CPT-55981 Venipuncture Draw Fee 14:06:30 FILL PLANT OPERATOR CPT-000 Give Appropriate Flu Vaccine 14:18:34 FILL PLANT OPERATOR 2 CPT-33447 Administration single or combination vac cine inc oral 14:46:00 FILL PLANT OPERATOR CPT-59267 Influenza split virus > age 3 14:46:00 FILL PLANT OPERATOR CPT-OV Office Visit 19:13:16 CDT CPT-16923 Zostavax 18:41:56 CDT CPT-20947 Administration single or combination vac cine inc oral 12:56:39 CDT CPT-26906 Zoster Vaccine (Zostavax) 12:56:39 CDT 2012 CPT-29954 Venipuncture Draw Fee 10:58:57 CDT CPT-01706 Sono pelvis non OB uterus ovaries cervix 17:45:04 CDT CPT-91625 Sono retroperitoneal complete kidneys an d bladder 17:14:36 CDT CPT-OV Office Visit 14:59:38 FILL PLANT OPERATOR CPT-J1070 Depo Testosterone 100 mg 14:50:13 CDT 03/05 CPT-63081 Abx/Therapy Injection 14:50:13 CDT CPT-34837 Administration single or combination vac cine inc oral 14:34:43 CDT CPT-49491 Influenza split virus > age 3 14:34:43 CDT CPT-J1070 Depo Testosterone 100 mg 17:37:13 CDT 01/11 CPT-82919 Abx/Therapy Injection 17:37:13 CDT CPT-35419 Venipuncture Draw Fee 16:30:13 CDT CPT-89374 Venipuncture Draw Fee 16:29:43 CDT CPT-J1070 Depo Testosterone 100 mg 14:45:38 CDT 01/11
--- OUTSIDE RECORDS SUMMARY | 2019-10-27 12:01 | XMS REPORT | Clinical Summary ---
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 Benign neoplasm of colon PERIPHERAL NEUROPATHY 356.9 [...] ronary atherosclerosis of unspecified type of vessel, lovelock or graft OTH NONSPC ABN FINDNG RAD&OTH EXM BODY STRUCTURE 793.99 11/08 Active Jessy Ruiz Other nonspecific (a bnormal) findings on radiological and other examinations of body structure NEED PROPH VACC&INOCULAT AGNST OTH SPEC DISEASE V05.8 Active Elba Ryan RMBetsey Need for prophylacti [...] stage III 585.3 Active 201 10/25/03 Elba Palmichael RMA Chronic kidney disease, Stage III (moder [...] Use as directed BLOOD GLUCOSE MONITORING SUPPL 23652206604 Active Agata Silveira MA Active TRUE METRIX BLOOD GLUCOSE TEST IN VITRO STRIP test blood sug ar BID Dx: E11.65 GLUCOSE BLOOD 38718028880 Active KENDALL Juarez Active NORTRIPTYLINE HCL 50 MG ORAL CAPSULE 1 twice a day for neuropathy 2 NORTRIPTYLINE HCL 36714815800 Active Baltazar Childers MD Acti ve ASPIRIN 81 MG TBEC Take one (1) tablet by mouth daily ASPIRIN 63920836985 Active Baltazar Childers MD Active GABAPENTIN 300 MG ORAL CAPSULE 1 three times a day 201 12/03/26 GABAPENTIN 66624452206 No Longer Active Baltazar Childers MD Activ e LISINOPRIL 20 MG ORAL TABLET 1 tablet by mouth daily at night 2016 LISINOPRIL 63859915338 Active Baltazar Childers MD Active ZITHROMAX Z-ISAIAS 250 MG ORAL TABLET Take two tablets to day and then 1 tablet daily for 4 days AZITHROMYCIN 42578457533 No Longer A ctive Baltazar Childers MD Active LANTUS SOLOSTAR 100 UNIT/ML SUBCUTANEOUS SOLUTION PEN- INJECTOR 30 units SC daily INSULIN GLARGINE 78499341576 Active Baltazar Childers MD Active AMLODIPINE BESYLATE 5 MG ORAL TABLET 1 tab daily for HTN AMLODIPINE BESYLATE 46218581721 Active Baltazar Childers MD Active SYNTHROID 100 MCG ORAL TABLET 1 tablet by mouth daily LEVOTHYROXINE SODIUM 79496419409 Active Baltazar Childers MD Active GLIPIZIDE 10 MG ORAL TABLET take 2 tablets twice daily GLIPIZIDE 55437325194 Active Baltazar Childers MD Active SUCRALFATE 1 GM ORAL TABLET 1 four times a day to coat the stoma ch SUCRALFATE 21565752311 No Longer Active Baltazar Childers MD Active PEN NEEDLES 31G X 6 MM use 1 daily INSULIN PEN NE EDLE 45258184837 Active KENDALL Juarez Active CELINA POWERSOSTAR 300 UNIT/ML SUBCUTANEOUS SOLUTION PEN- INJECTOR 10 units SC daily INSULIN GLARGINE 08896845468 No Longer Active Rola ARGUETA Active NAPROXEN SODIUM 220 MG ORAL TABLET 1 three times a day as needed NAPROXEN SODIUM 54295926584 No Longer Active Baltazar Childers MD Active ATORVASTATIN CALCIUM 20 MG ORAL TABLET Take 1 tab daily ATORVASTATIN CALCIUM 66450394970 Active Baltazar Childers MD A ctive FUROSEMIDE 40 MG ORAL TABLET Take one by mouth daily FUROSEMIDE 67317057639 Active Baltazar Childers MD Active LISINOPRIL 20 MG ORAL TABLET Take one by mouth daily at bedtime LISINOPRIL 97406145881 No Longer Active Baltazar Childers MD Active ONETOUCH ULTRA BLUE IN VITRO STRIP Test twice a day 07/11/11 GLUCOSE BLOOD 42920512263 No Longer Active Baltazar Childers MD Acti ve TRUEPLUS LANCETS 33G Test twice a day LANCETS 6891011 9369 Active KENDALL Juarez Active TRUEDRAW LANCING DEVICE Test twice a day LANCET DEVICES 30749917877 Active Baltazar Childers MD Active TRUETRACK BLOOD GLUCOSE w/Device KIT Test twice a day BLOOD GLUCOSE MONITORING SUPPL 88774364533 Active Baltazar Childers MD Activ e HYDROCODONE-ACETAMINOPHEN 7.5-325 MG ORAL TABLET Take 1 tab every 6-8 hours PRN HYDROCODONE-ACETAMINOPHEN 96680824483 Active Baltazar Nickerson MD Active GABAPENTIN 300 MG ORAL CAPSULE 1 po qd x 2 days, then 1 po BID x 2 days, then 1 po TID GABAPENTIN 70205179034 No Longer Active Baltazar Childers MD Active TRAMADOL HCL 50 MG ORAL TABLET 1 twice a day as needed for pain 201 07/27/28 TRAMADOL HCL 17435163140 Active Baltazar Childers MD Active NAPROXEN 500 MG ORAL TABLET 1 tablet by mouth twice daily NAPROXEN 03572993293 No Longer Active Baltazar Childers MD Active PROAIR HFA 108 (90 Base) MCG/ACT INHALATION AEROSOL SO LUTION 2 puffs four times a day as needed ALBUTEROL SULFATE 42923661170 Active R gilberto Childers MD Active DEPO-TESTOSTERONE 200 MG/ML INTRAMUSCULAR SOLUTION as directed TESTOSTERONE CYPIONATE 53133687521 No Longer Active Baltazar Childers MD Active LIPITOR 20 MG ORAL TABLET Take one by mouth daily in evening ATORVASTATIN CALCIUM 75219028278 No Longer Active Baltazar Childers MD Active CRESTOR 10 MG ORAL TABLET 1 by mouth every day ROSUVASTATIN CALCIUM 72865521173 No Longer Active Baltazar Childers MD Active PHENTERMINE HCL 37.5 MG ORAL TABLET Take one by mouth daily PHENTERMINE HCL 20510279985 No Longer Active Baltazar Childers MD Ac tive ROBAXIN-750 750 MG ORAL TABLET Take one by mouth daily METHOCARBAMOL 49254918789 Active KENDALL Juarez Active TIZANIDINE HCL 4 MG ORAL TABLET 1 daily as needed for muscle spa sm TIZANIDINE HCL 99409985339 No Longer Active Dawna Salazar RN Active [id number] 50-325-40 MG ORAL TABLET 1 fo ur times a day as needed for heacache [id number] 51173848052 Active Baltazar Childers MD Active SUMATRIPTAN SUCCINATE 100 MG ORAL TABLET 1 tablet by m outh at onset of migraine as needed SUMATRIPTAN SUCCINATE 67151131478 Active KENDALL Restrepo Active LORATADINE 10 MG ORAL TABLET Take one by mouth daily LORATADINE 23246724201 Active KENDALL Juarez Active OMEPRAZOLE 20 MG ORAL CAPSULE DELAYED RELEASE Take one by mouth jostin ly OMEPRAZOLE 74968645987 Active Baltazar Childers MD Active HYDROXYZINE HCL 25 MG ORAL TABLET Take one by mouth daily HYDROXYZINE HCL 93546795409 Active Baltazar Childers MD Active ALPRAZOLAM 1 MG ORAL TABLET 1 tablet by mouth daily at bedti al for restless leg ALPRAZOLAM 59395536866 Active Baltazar Childers MD Active METFORMIN HCL 1000 MG ORAL TABLET Take one by mouth twice daily METFORMIN HCL 38861714101 Active Baltazar Childers MD Active TIZANIDINE HCL 4 MG ORAL TABLET 1 daily as needed for muscle spa sm TIZANIDINE HCL 4 MG ORAL TABLET 743295 TIZANIDINE HCL Inactive PHENTERMINE HCL 37.5 MG ORAL TABLET Take one by mouth daily PHENTERMINE HCL 37.5 MG ORAL TABLET 383426 PHENTERMINE HCL Inac tive CRESTOR 10 MG ORAL TABLET 1 by mouth every day CRESTOR 10 MG ORAL TABLET 667880 ROSUVASTATIN CALCIUM Inactive LIPITOR 20 MG ORAL TABLET Take one by mouth daily in evening LIPITOR 20 MG ORAL TABLET 148908 ATORVASTATIN CALCIUM Inactive DEPO-TESTOSTERONE 200 MG/ML INTRAMUSCULAR SOLUTION as directed DEPO-TESTOSTERONE 200 MG/ML INTRAMUSCULAR SOLUTION 774763 RUFINO TOSTERONE CYPIONATE Inactive NAPROXEN 500 MG ORAL TABLET 1 tablet by mouth twice daily NAPROXEN 500 MG ORAL TABLET 930745 NAPROXEN Inactive GABAPENTIN 300 MG ORAL CAPSULE 1 po qd x 2 days, then 1 po BID x 2 days, then 1 po TID GABAPENTIN 300 MG ORAL CAPSULE 676058 GABAP ENTIN Inactive ONETOUCH ULTRA BLUE IN VITRO STRIP Test twice a day 07/11/11 ONETOUCH ULTRA BLUE IN VITRO STRIP GLUCOSE BLOOD Inact amie NAPROXEN SODIUM 220 MG ORAL TABLET 1 three times a day as needed NAPROXEN SODIUM 220 MG ORAL TABLET 184530 NAPROXEN SODI UM Inactive TOUJEO SOLOSTAR 300 UNIT/ML SUBCUTANEOUS SOLUTION PEN- INJECTOR 10 units SC daily TOUJEO SOLOSTAR 300 UNIT/ML SUBCUTANEOUS SOLUTION PEN-INJECTOR INSULIN GLARGINE Inactive SUCRALFATE 1 GM ORAL TABLET 1 four times a day to coat the stoma ch SUCRALFATE 1 GM ORAL TABLET 291043 SUCRALFATE Inac tive GABAPENTIN 300 MG ORAL CAPSULE 1 three times a day 201 12/03/26 GABAPENTIN 300 MG ORAL CAPSULE 783267 GABAPENTIN Inactive ZITHROMAX Z-ISAIAS 250 MG ORAL TABLET Take two tablets to day and then 1 tablet daily for 4 days ZITHROMAX Z-ISAIAS 250 MG ORAL TAB LET 945923 AZITHROMYCIN Inactive Immunizations Vaccine Administration Date Value Standard Floyd cription pneumococcal immunization administered Pneumovax 23 [CVX33] pneumococcal polysaccharide vaccine, 23 valent Seasonal influenza vaccine, injectable, containing preservative, for > 3 years old (Afluria, FluLaval, Fluzone, Fluvirin, Fluarix, Agriflu(>= 18 yo)) Fluzone (>3 yrs.) [[id number]] Influenza, seasonal, inject able Seasonal influenza vaccine, injectable, containing preservative, for > 3 years old (Afluria, FluLaval, Fluzone, Fluvirin, Fluarix, Agriflu(>= 18 yo)) Fluzone (>3 yrs.) [YGV691] Influenza, seasonal, inject able Vital Signs Date [...] - Chem istry sodium, serum 139 mmol/L 317-830 2830/10/03 potassium, serum 4.7 mmol/L 3.5-5.2 chloride, serum 98 mmol/L 98-107 carbon dioxide, venous blood 28.7 mmol/L 21.0-32 .0 blood glucose 218 mg/dL 65-110 calcium, serum 9.8 mg/dL 8.5-10.1 urea nitrogen, blood 19 mg/dL 7-18 creatinine, serum 1.68 mg/dL 0.60-1.30 sodium, serum 139 mmol/L 405-138 1671/06/26 potassium, serum 4.8 mmol/L 3.5-5.2 chloride, serum 102 mmol/L 98-107 carbon dioxide, venous blood 29.1 mmol/L 21.0-32 .0 blood glucose 179 mg/dL 65-95 calcium, serum 9.7 mg/dL 8.5-10.1 urea nitrogen, blood 31 mg/dL 7-18 creatinine, serum 1.97 mg/dL 0.60-1.30 Lab Report: CBC, Renal Panel - Chemistry sodium, serum 142 mmol/L 985-991 4699/08/11 potassium, serum 4.8 mmol/L 3.5-5.2 chloride, serum 103 mmol/L 98-107 carbon dioxide, venous blood 38.7 mmol/L 21.0-32 .0 creatinine, serum 1.69 mg/dL 0.60-1.30 blood glucose 179 mg/dL 65-110 urea nitrogen, blood 20 mg/dL 7-18 calcium, serum 9.9 mg/dL 8.5-10.1 Lab Report: CBC, Renal Panel - Hematolog y leukocyte count, blood 7.2 10^3/MM^3 10*3/mm3 4.6-10.2 erythrocyte (RBC) count 4.02 10^6/MM^3 10*6/mm3 3.80-5.8 0 hemoglobin, blood 12.5 g/dL 12.0-16.0 hematocrit, blood 38.4 % 37.0-47.0 mean corpuscular volume, RBC 96 fL 80-97 mean corpuscular hemoglobin, RBC 31.1 pg 27. 0-31.2 mean corpuscular hemoglobin concentration, RBC 32.5 G/DL % 31.8-35.4 red blood cell distribution width 14.4 % 11 .6-14.8 platelet count 304 10^3/MM^3 10*3/mm3 142-424 Lab Report: HGBA1C - Chemistry hemoglobin A1C, blood, as % of total hemoglobin 8.2 % 4.3-6.0 hemoglobin A1C, blood, as % of total hemoglobin 7.6 % 4.3-6.0 Lab Report: Lipid Panel, Thyroid Stimula ting Hormone (L) - Chemistry cholesterol, serum 209 mg/dL 117-254 6249/12/27 triglyceride, serum, fasting 329 mg/dL 30-200 HDL cholesterol, serum 56 mg/dL 32-60 LDL cholesterol, serum 87 mg/dL 0-130 TSH 3.60 m[iU]/mL 0.36-3.74 Office Visit: Meds Check - Toxicology drug screen, urine, qualitative negative Encounters Code Encounter Date Provider Facility CPT-46182 60117-Lco Vst-Est Level V 14:26:27 CDT Aneudy Childers MD [facility] CPT-51199 Level 4 Est. Patient 17:05:37 CDT Baltazar Childers MD [facility] CPT-41893 Level 4 Est. Patient 16:21:19 MOUNTING INSPECTOR Baltazar Childers MD [facility]-03164 Level 4 Est. Patient 12:25:11 CDT Baltazar Childers MD [facility] CPT-43962 Level 4 Est. Patient 14:22:31 CDT Baltazar Childers MD [facility] CPT-23391 Level 4 Est. Patient 15:44:38 CDT Shonna Parker [facility] CPT-37131 Level 4 Est. Patient 11:34:17 CDT Baltazar Childers MD [facility] CPT-95715 Level 3 Est. Patient 16:40:40 CDT Baltazar Childers MD [facility] CPT-96136 Level 4 Est. Patient 10:41:24 CDT Baltazar Childers MD [facility] CPT-65990 Level 4 Est. Patient 16:01:48 CDT Baltazar Childers MD [facility] CPT-63309 Level 4 Est. Patient 16:54:07 MOUNTING INSPECTOR Baltazar Childers MD [facility]-33341 Level 4 Est. Patient 15:42:12 CDT Baltazar Childers MD [facility] CPT-65764 Level 4 Est. Patient 11:29:55 CDT Baltazar Childers MD [facility] CPT-11838 Level 4 Est. Patient 14:15:19 CDT Baltazar Childers MD [facility] CPT-87809 Level 4 Est. Patient 12:20:13 CDT Baltazar Childers MD [facility] CPT-19677 Level 4 Est. Patient 14:52:45 MOUNTING INSPECTOR Baltazar Childers MD [facility] CPT-13836 Level 4 Est. Patient 14:18:34 MOUNTING INSPECTOR Baltazar Childers MD [facility] CPT-46003 Level 4 Est. Patient 15:18:29 CDT Baltazar Childers MD [facility] CPT-01977 Level 3 Est. Patient 12:45:34 CDT Baltazar Childers MD [facility] CPT-18855 Level 3 Est. Patient 10:10:11 CDT Baltazar Childers MD [facility] CPT-61698 Level 3 Est. Patient 14:07:50 CDT Baltazar Childers MD [facility] CPT-80540 Level 4 Est. Patient 12:26:10 MOUNTING INSPECTOR Baltazar Childers MD [facility] CPT-78895 Level 4 Est. Patient 14:45:38 CDT Baltazar Childers MD [facility] CPT-68737 Level 4 New Patient 12:30:48 CDT Baltazar hinton MD [facility] Procedures Code Procedure Name Date Entry Date Standard Desc ription CPT-000 Give Appropriate Flu Vaccine 12:25:14 CDT 2 CPT-48697 First Vx - Ix admin via ID I M or jet injects without counseling by physician 13:08:59 CDT CPT-98621 Fluzone Quadrivalent Intramuscular Suspe nsion 0.5 ML 13:08:59 CDT CPT-55760 Venipuncture Draw Fee 12:04:12 CDT CPT-19911 Lipid - LAB USE ONLY 17:39:15 MOUNTING INSPECTOR 9 CPT-45332 HGBA1C - LAB USE ONLY 17:39:15 MOUNTING INSPECTOR CPT-04322 CMP - LAB USE ONLY 17:39:14 MOUNTING INSPECTOR CPT-46947 Venipuncture Draw Fee 17:39:14 MOUNTING INSPECTOR CPT-94538 First Vx - Ix admin via ID I M or jet injects without counseling by physician 16:55:17 MOUNTING INSPECTOR CPT-27385 Fluzone Quadrivalent Intramuscular Suspe nsion 0.5 ML 16:55:17 MOUNTING INSPECTOR CPT-29339 Renal Panel - LAB USE ONLY 17:39:20 CDT 201 10/31/07 CPT-43473 CBC - LAB USE ONLY 17:39:20 CDT CPT-02921 Venipuncture Draw Fee 17:39:20 CDT CPT-45782 Venipuncture Draw Fee 14:33:30 CDT CPT-28299 Renal Panel - LAB USE ONLY 14:33:30 CDT 201 10/31/07 CPT-48819 CBC - LAB USE ONLY 14:33:29 CDT CPT-89455 Venipuncture Draw Fee 14:50:21 MOUNTING INSPECTOR CPT-09902 Immunization Single Admin 17:35:35 CDT 2014 CPT-86433 Fluzone Quadrivalent preservative free ( >=3yrs.) 17:35:35 CDT CPT-23149 Venipuncture Draw Fee 12:10:27 MOUNTING INSPECTOR CPT-98236 Fluzone Quadrivalent Intramuscular Suspe nsion 0.5 ML 10:49:13 CDT CPT-85585 First Vx Component - Ix admi n via ID IM or jet inj without physician counseling 15:17:19 MOUNTING INSPECTOR CPT-05036 Pneumovax 23 15:17:19 MOUNTING INSPECTOR CPT-80479 Pneumovax 14:52:45 MOUNTING INSPECTOR CPT-84624 Venipuncture Draw Fee 14:06:30 MOUNTING INSPECTOR CPT-000 Give Appropriate Flu Vaccine 14:18:34 MOUNTING INSPECTOR 2 CPT-98990 Administration single or combination vac cine inc oral 14:46:00 MOUNTING INSPECTOR CPT-79149 Influenza split virus > age 3 14:46:00 MOUNTING INSPECTOR CPT-OV Office Visit 19:13:16 CDT CPT-38891 Zostavax 18:41:56 CDT CPT-23361 Administration single or combination vac cine inc oral 12:56:39 CDT CPT-10772 Zoster Vaccine (Zostavax) 12:56:39 CDT 2012 CPT-93444 Venipuncture Draw Fee 10:58:57 CDT CPT-47951 Sono pelvis non OB uterus ovaries cervix 17:45:04 CDT CPT-69659 Sono retroperitoneal complete kidneys an d bladder 17:14:36 CDT CPT-OV Office Visit 14:59:38 MOUNTING INSPECTOR CPT-J1070 Depo Testosterone 100 mg 14:50:13 CDT 03/05 CPT-10367 Abx/Therapy Injection 14:50:13 CDT CPT-33552 Administration single or combination vac cine inc oral 14:34:43 CDT CPT-32025 Influenza split virus > age 3 14:34:43 CDT CPT-J1070 Depo Testosterone 100 mg 17:37:13 CDT 01/11 CPT-15080 Abx/Therapy Injection 17:37:13 CDT CPT-32490 Venipuncture Draw Fee 16:30:13 CDT CPT-95609 Venipuncture Draw Fee 16:29:43 CDT CPT-J1070 Depo Testosterone 100 mg 14:45:38 CDT 01/11
--- OUTSIDE RECORDS SUMMARY | 2019-10-27 12:01 | XMS REPORT | Clinical Summary ---
Author Author Admin, Elba Lance Michelle [facility] Address Unknown Phone Unavailable Allergies, Adverse 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 [employer] HEL[employer] REPAIR Benign neoplasm of colon PERIPHERAL NEUROPATHY 356.9 [...] KIDNEY AND URETER 593.9 Activ e Elba Shelby RMA Unspecified disorder of kidney and urete [...] Use as directed BLOOD GLUCOSE MONITORING SUPPL 98905668678 Active Baltazar Childers MD Activ e TRUE METRIX BLOOD GLUCOSE TEST IN VITRO STRIP test blood sug ar BID Dx: E11.65 GLUCOSE BLOOD 52874420531 Active Ct Ledesma MA Active NORTRIPTYLINE HCL 50 MG ORAL CAPSULE 1 twice a day for neuropathy 2 NORTRIPTYLINE HCL 82966865617 Active Baltazar Childers MD Acti ve ASPIRIN 81 MG TBEC Take one (1) tablet by mouth daily ASPIRIN 98474137395 Active Baltazar Childers MD Active GABAPENTIN 300 MG ORAL CAPSULE 1 three times a day 201 12/03/26 GABAPENTIN 70948421402 No Longer Active Baltazar Childers MD Activ e LISINOPRIL 20 MG ORAL TABLET 1 tablet by mouth daily at night 2016 LISINOPRIL 24467276223 Active Baltazar Childers MD Active ZITHROMAX Z-ISAIAS 250 MG ORAL TABLET Take two tablets to day and then 1 tablet daily for 4 days AZITHROMYCIN 91283202582 No Longer A ctive Baltazar Childers MD Active LANTUS SOLOSTAR 100 UNIT/ML SUBCUTANEOUS SOLUTION PEN- INJECTOR 30 units SC daily INSULIN GLARGINE 31504220173 Active Baltazar Childers MD Active AMLODIPINE BESYLATE 5 MG ORAL TABLET 1 tab daily for HTN AMLODIPINE BESYLATE 19329823906 Active Baltazar Childers MD Active SYNTHROID 100 MCG ORAL TABLET 1 tablet by mouth daily LEVOTHYROXINE SODIUM 58424772189 Active Baltazar Childers MD Active GLIPIZIDE 10 MG ORAL TABLET take 2 tablets twice daily GLIPIZIDE 38605274250 Active Baltazar Childers MD Active SUCRALFATE 1 GM ORAL TABLET 1 four times a day to coat the stoma ch SUCRALFATE 82248600856 No Longer Active Baltazar Childers MD Active PEN NEEDLES 31G X 6 MM use 1 daily INSULIN PEN NE EDLE 31311224624 Active KENDALL Juarez Active CELINA POWERSOSTAR 300 UNIT/ML SUBCUTANEOUS SOLUTION PEN- INJECTOR 10 units SC daily INSULIN GLARGINE 93472834035 No Longer Active Rola Guerraabhilash ARGUETA Active NAPROXEN SODIUM 220 MG ORAL TABLET 1 three times a day as needed NAPROXEN SODIUM 60159457784 No Longer Active Baltazar Childers MD Active ATORVASTATIN CALCIUM 20 MG ORAL TABLET Take 1 tab daily ATORVASTATIN CALCIUM 17507759139 Active Baltazar Childers MD A ctive FUROSEMIDE 40 MG ORAL TABLET Take one by mouth daily FUROSEMIDE 48544748556 Active Baltazar Childers MD Active LISINOPRIL 20 MG ORAL TABLET Take one by mouth daily at bedtime LISINOPRIL 83937403172 No Longer Active Baltazar Childers MD Active ONETOUCH ULTRA BLUE IN VITRO STRIP Test twice a day 07/11/11 GLUCOSE BLOOD 90466696697 No Longer Active Baltazar Childers MD Acti ve TRUEPLUS LANCETS 33G Test twice a day LANCETS 4224580 2878 Active KENDALL Juarez Active TRUEDRAW LANCING DEVICE Test twice a day LANCET DEVICES 28418972889 Active Baltazar Childers MD Active TRUETRACK BLOOD GLUCOSE w/Device KIT Test twice a day BLOOD GLUCOSE MONITORING SUPPL 77436937969 Active Baltazar Childers MD Activ e HYDROCODONE-ACETAMINOPHEN 7.5-325 MG ORAL TABLET Take 1 tab every 6-8 hours PRN HYDROCODONE-ACETAMINOPHEN 52380102332 Active Baltazar Nickerson MD Active GABAPENTIN 300 MG ORAL CAPSULE 1 po qd x 2 days, then 1 po BID x 2 days, then 1 po TID GABAPENTIN 94856605906 No Longer Active Baltazar Childers MD Active TRAMADOL HCL 50 MG ORAL TABLET 1 twice a day as needed for pain 201 07/27/28 TRAMADOL HCL 01117190330 Active Baltazar Childers MD Active NAPROXEN 500 MG ORAL TABLET 1 tablet by mouth twice daily NAPROXEN 37637836361 No Longer Active Baltazar Childers MD Active PROAIR HFA 108 (90 Base) MCG/ACT INHALATION AEROSOL SO LUTION 2 puffs four times a day as needed ALBUTEROL SULFATE 76181014243 Active R gilberto Childers MD Active DEPO-TESTOSTERONE 200 MG/ML INTRAMUSCULAR SOLUTION as directed TESTOSTERONE CYPIONATE 93041422635 No Longer Active Baltazar Childers MD Active LIPITOR 20 MG ORAL TABLET Take one by mouth daily in evening ATORVASTATIN CALCIUM 27139589969 No Longer Active Baltazar Childers MD Active CRESTOR 10 MG ORAL TABLET 1 by mouth every day ROSUVASTATIN CALCIUM 29950252730 No Longer Active Baltazar Childers MD Active PHENTERMINE HCL 37.5 MG ORAL TABLET Take one by mouth daily PHENTERMINE HCL 46909418051 No Longer Active Baltazar Childers MD Ac tive ROBAXIN-750 750 MG ORAL TABLET Take one by mouth daily METHOCARBAMOL 02033503247 Active KNEDALL Juarez Active TIZANIDINE HCL 4 MG ORAL TABLET 1 daily as needed for muscle spa sm TIZANIDINE HCL 86562028731 No Longer Active Dawna Salazar RN Active CDYQIOMMXQ-WTDX-CHIIDUXO 50-325-40 MG ORAL TABLET 1 fo ur times a day as needed for heacache [id number] 28807579704 Active Baltazar Childers MD Active SUMATRIPTAN SUCCINATE 100 MG ORAL TABLET 1 tablet by m outh at onset of migraine as needed SUMATRIPTAN SUCCINATE 74015950898 Active KENDALL Restrepo Active LORATADINE 10 MG ORAL TABLET Take one by mouth daily LORATADINE 83713891605 Active KENDALL Juarez Active OMEPRAZOLE 20 MG ORAL CAPSULE DELAYED RELEASE Take one by mouth jostin ly OMEPRAZOLE 31714963982 Active Baltazar Childers MD Active HYDROXYZINE HCL 25 MG ORAL TABLET Take one by mouth daily HYDROXYZINE HCL 31886735703 Active Baltazar Childers MD Active ALPRAZOLAM 1 MG ORAL TABLET 1 tablet by mouth daily at bedti me for restless leg ALPRAZOLAM 99556594217 Active Baltazar Childers MD Active METFORMIN HCL 1000 MG ORAL TABLET Take one by mouth twice daily METFORMIN HCL 05180291082 Active Baltazar Childers MD Active TIZANIDINE HCL 4 MG ORAL TABLET 1 daily as needed for muscle spa sm TIZANIDINE HCL 4 MG ORAL TABLET 909084 TIZANIDINE HCL Inactive PHENTERMINE HCL 37.5 MG ORAL TABLET Take one by mouth daily PHENTERMINE HCL 37.5 MG ORAL TABLET 549326 PHENTERMINE HCL Inac tive CRESTOR 10 MG ORAL TABLET 1 by mouth every day CRESTOR 10 MG ORAL TABLET 410057 ROSUVASTATIN CALCIUM Inactive LIPITOR 20 MG ORAL TABLET Take one by mouth daily in evening LIPITOR 20 MG ORAL TABLET 382214 ATORVASTATIN CALCIUM Inactive DEPO-TESTOSTERONE 200 MG/ML INTRAMUSCULAR SOLUTION as directed DEPO-TESTOSTERONE 200 MG/ML INTRAMUSCULAR SOLUTION 2306662 RUFINO TOSTERONE CYPIONATE Inactive NAPROXEN 500 MG ORAL TABLET 1 tablet by mouth twice daily NAPROXEN 500 MG ORAL TABLET 367737 NAPROXEN Inactive GABAPENTIN 300 MG ORAL CAPSULE 1 po qd x 2 days, then 1 po BID x 2 days, then 1 po TID GABAPENTIN 300 MG ORAL CAPSULE 266196 GABAP ENTIN Inactive ONETOUCH ULTRA BLUE IN VITRO STRIP Test twice a day 07/11/11 ONETOUCH ULTRA BLUE IN VITRO STRIP GLUCOSE BLOOD Inact amie NAPROXEN SODIUM 220 MG ORAL TABLET 1 three times a day as needed NAPROXEN SODIUM 220 MG ORAL TABLET 769131 NAPROXEN SODI UM Inactive TOUJEO SOLOSTAR 300 UNIT/ML SUBCUTANEOUS SOLUTION PEN- INJECTOR 10 units SC daily TOUJEO SOLOSTAR 300 UNIT/ML SUBCUTANEOUS SOLUTION PEN-INJECTOR INSULIN GLARGINE Inactive SUCRALFATE 1 GM ORAL TABLET 1 four times a day to coat the stoma ch SUCRALFATE 1 GM ORAL TABLET 701376 SUCRALFATE Inac tive GABAPENTIN 300 MG ORAL CAPSULE 1 three times a day 201 12/03/26 GABAPENTIN 300 MG ORAL CAPSULE 712786 GABAPENTIN Inactive ZITHROMAX Z-ISAIAS 250 MG ORAL TABLET Take two tablets to day and then 1 tablet daily for 4 days ZITHROMAX Z-ISAIAS 250 MG ORAL TAB LET 903330 AZITHROMYCIN Inactive Immunizations Vaccine Administration Date Value Standard Floyd cription pneumococcal immunization administered Pneumovax 23 [CVX33] pneumococcal polysaccharide vaccine, 23 valent Seasonal influenza vaccine, injectable, containing preservative, for > 3 years old (Afluria, FluLaval, Fluzone, Fluvirin, Fluarix, Agriflu(>= 18 yo)) Fluzone (>3 yrs.) [EIB953] Influenza, seasonal, inject able Seasonal influenza vaccine, injectable, containing preservative, for > 3 years old (Afluria, FluLaval, Fluzone, Fluvirin, Fluarix, Agriflu(>= 18 yo)) Fluzone (>3 yrs.) [MHO232] Influenza, seasonal, inject able Vital Signs Date [...] Report: Basic Metabolic Panel - Chem istry calcium, serum 9.8 mg/dL 8.5-10.1 urea nitrogen, blood 19 mg/dL 7-18 creatinine, serum 1.68 mg/dL 0.60-1.30 sodium, serum 139 mmol/L 743-582 5250/06/26 potassium, serum 4.8 mmol/L 3.5-5.2 chloride, serum 102 mmol/L 98-107 carbon dioxide, venous blood 29.1 mmol/L 21.0-32 .0 blood glucose 179 mg/dL 65-95 calcium, serum 9.7 mg/dL 8.5-10.1 urea nitrogen, blood 31 mg/dL 7-18 creatinine, serum 1.97 mg/dL 0.60-1.30 blood glucose 218 mg/dL 65-110 carbon dioxide, venous blood 28.7 mmol/L 21.0-32 .0 chloride, serum 98 mmol/L 98-107 potassium, serum 4.7 mmol/L 3.5-5.2 sodium, serum 139 mmol/L 136-145 Lab Report: HGBA1C - Chemistry hemoglobin A1C, blood, as % of total hemoglobin 7.6 % 4.3-6.0 hemoglobin A1C, blood, as % of total hemoglobin 8.2 % 4.3-6.0 Lab Report: Lipid Panel, Thyroid Stimula ting Hormone (L) - Chemistry cholesterol, serum 209 mg/dL 559-918 1670/12/27 triglyceride, serum, fasting 329 mg/dL 30-200 HDL cholesterol, serum 56 mg/dL 32-60 LDL cholesterol, serum 87 mg/dL 0-130 TSH 3.60 m[iU]/mL 0.36-3.74 Office Visit: Meds Check - Toxicology drug screen, urine, qualitative negative Encounters Code Encounter Date Provider Facility CPT-93947 [id number] Vst-Est Level V 14:26:27 CDT Aneudy Childers MD [facility] CPT-94188 Level 4 Est. Patient 17:05:37 CDT Baltazar Childers MD [facility] CPT-28112 Level 4 Est. Patient 16:21:19 [employer]LECT[employer]ICAL [employer]ION [employer] Baltazar Childers MD [facility] CPT-68319 Level 4 Est. Patient 12:25:11 CDT Baltazar Childers MD [facility] CPT-06501 Level 4 Est. Patient 14:22:31 CDT Baltazar Childers MD [facility] CPT-59023 Level 4 Est. Patient 15:44:38 CDT Shonna Parker APRN [facility] CPT-32935 Level 4 Est. Patient 11:34:17 CDT Baltazar Childers MD [facility] CPT-86127 Level 3 Est. Patient 16:40:40 CDT Baltazar Childers MD [facility] CPT-73546 Level 4 Est. Patient 10:41:24 CDT Baltazar Childers MD [facility] CPT-52166 Level 4 Est. Patient 16:01:48 CDT Baltazar Childers MD [facility] CPT-01982 Level 4 Est. Patient 16:54:07 [employer]LECT[employer]ICAL H[employer]ION TE[employer] Baltazar Childers MD [facility] CPT-95388 Level 4 Est. Patient 15:42:12 CDT Baltazar Childers MD [facility] CPT-46988 Level 4 Est. Patient 11:29:55 CDT Baltazar Childers MD [facility] CPT-38304 Level 4 Est. Patient 14:15:19 CDT Baltazar Childers MD [facility] CPT-25317 Level 4 Est. Patient 12:20:13 CDT Baltazar Childers MD [facility] CPT-31314 Level 4 Est. Patient 14:52:45 ELECTRICAL H[employer] T[employer]ION TE[employer] Baltazar Childers MD [facility] CPT-32384 Level 4 Est. Patient 14:18:34 ELECTRICAL H[employer] TENSION TESTER Baltazar Childers MD [facility] CPT-01849 Level 4 Est. Patient 15:18:29 CDT Baltazar Childers MD [facility] CPT-65830 Level 3 Est. Patient 12:45:34 CDT Baltazar Childers MD [facility] CPT-92914 Level 3 Est. Patient 10:10:11 CDT Baltazar Childers MD [facility] CPT-13749 Level 3 Est. Patient 14:07:50 CDT Baltazar Childers MD [facility] CPT-42623 Level 4 Est. Patient 12:26:10 ELECTRICAL H[employer] T[employer]ION TE[employer] Baltazar Childers MD [facility] CPT-65533 Level 4 Est. Patient 14:45:38 CDT Baltazar Childers MD [facility] CPT-65931 Level 4 New Patient 12:30:48 CDT Baltazar hinton MD [facility] Procedures Code Procedure Name Date Entry Date Standard Desc ription CPT-000 Give Appropriate Flu Vaccine 12:25:14 CDT 2 CPT-31914 First Vx - Ix admin via ID I M or jet injects without counseling by physician 13:08:59 CDT CPT-11588 Fluzone Quadrivalent Intramuscular Suspe nsion 0.5 ML 13:08:59 CDT CPT-19081 Venipuncture Draw Fee 12:04:12 CDT CPT-26012 Lipid - LAB USE ONLY 17:39:15 ELECT[employer]ICAL H[employer]ION TESTER 9 CPT-13025 HGBA1C - LAB USE ONLY 17:39:15 ELECTRICAL HIGH TENSION TE[employer] CPT-43041 CMP - LAB USE ONLY 17:39:14 ELECTRICAL H[employer] T[employer]ION TE[employer] CPT-76632 Venipuncture Draw Fee 17:39:14 ELECTRICAL H[employer]ION TE[employer] CPT-22473 First Vx - Ix admin via ID I M or jet injects without counseling by physician 16:55:17 ELECTRICAL H[employer] T[employer]ION TE[employer] CPT-91782 Fluzone Quadrivalent Intramuscular Suspe nsion 0.5 ML 16:55:17 ELECTRICAL H[employer] TENSION TE[employer] CPT-22084 Renal Panel - LAB USE ONLY 17:39:20 CDT 201 10/31/07 CPT-78968 CBC - LAB USE ONLY 17:39:20 CDT CPT-27970 Venipuncture Draw Fee 17:39:20 CDT CPT-23989 Venipuncture Draw Fee 14:33:30 CDT CPT-11432 Renal Panel - LAB USE ONLY 14:33:30 CDT 201 10/31/07 CPT-68907 CBC - LAB USE ONLY 14:33:29 CDT CPT-39757 Venipuncture Draw Fee 14:50:21 [employer]ICAL [employer]ION TE[employer] CPT-60853 Immunization Single Admin 17:35:35 CDT 2014 CPT-21721 Fluzone Quadrivalent preservative free ( >=3yrs.) 17:35:35 CDT CPT-94797 Venipuncture Draw Fee 12:10:27 ELECTRICAL H[employer]ION TE[employer] CPT-54752 Fluzone Quadrivalent Intramuscular Suspe nsion 0.5 ML 10:49:13 CDT CPT-09446 First Vx Component - Ix admi n via ID IM or jet inj without physician counseling 15:17:19 [employer]ICAL [employer]ION TE[employer] CPT-44342 Pneumovax 15:17:19 ELECTRICAL H[employer] TENSION TESTER CPT-66274 Pneumovax 14:52:45 ELECT[employer]ICAL H[employer] T[employer]ION TE[employer] CPT-87712 Venipuncture Draw Fee 14:06:30 ELECT[employer]ICAL H[employer] T[employer]ION TE[employer] CPT-000 Give Appropriate Flu Vaccine 14:18:34 ELECTRICAL HIGH TENSION TESTER 2 CPT-36037 Administration single or combination vac cine inc oral 14:46:00 [employer]ICAL H[employer]ION TE[employer] CPT-28611 Influenza split virus > age 3 14:46:00 [employer]LECT[employer]ICAL [employer]ION TE[employer] CPT-OV Office Visit 19:13:16 CDT CPT-60386 Zostavax 18:41:56 CDT CPT-97271 Administration single or combination vac cine inc oral 12:56:39 CDT CPT-80757 Zoster Vaccine (Zostavax) 12:56:39 CDT 2012 CPT-65961 Venipuncture Draw Fee 10:58:57 CDT CPT-42455 Sono pelvis non OB uterus ovaries cervix 17:45:04 CDT CPT-71528 Sono retroperitoneal complete kidneys an d bladder 17:14:36 CDT CPT-OV Office Visit 14:59:38 [employer] CPT-J1070 Depo Testosterone 100 mg 14:50:13 CDT 03/05 CPT-94989 Abx/Therapy Injection 14:50:13 CDT CPT-82695 Administration single or combination vac cine inc oral 14:34:43 CDT CPT-53674 Influenza split virus > age 3 14:34:43 CDT CPT-J1070 Depo Testosterone 100 mg 17:37:13 CDT 01/11 CPT-05240 Abx/Therapy Injection 17:37:13 CDT CPT-79907 Venipuncture Draw Fee 16:30:13 CDT CPT-03824 Venipuncture Draw Fee 16:29:43 CDT CPT-J1070 Depo Testosterone 100 mg 14:45:38 CDT 01/11
--- OUTSIDE RECORDS SUMMARY | 2019-10-27 12:01 | XMS REPORT | Clinical Summary ---
Author Author Abhishek, Elba Lance [facility] Address Unknown Phone Unavailable Allergies, Adverse Reactions, [...] without mention of status migrainosus HYPERLIPIDEMIA 272.4 Active Baltazar Childers MD Other and unspecified hyperlipidemia CARPAL TUNNEL SYNDROME 354.0 Active Baltazar silverman MD Carpal tunnel syndrome OBESITY 278.00 Active Baltazar Childers MD Obesity, unspecified ADD 314.00 Active Baltazar Childers MD Attention deficit disorder of childhood without mention of hyperactivity DECREASED LIBIDO 799.81 Active Baltazar Wayne Decreased libido COLON POLYPS 211.3 Resolved Lolis Thomas IMAGER Benign neoplasm of colon PERIPHERAL NEUROPATHY 356.9 [...] ronary atherosclerosis of unspecified type of vessel, [place] ira or graft OTH NONSPC ABN FINDNG RAD&OTH EXM BODY STRUCTURE 793.99 11/08 Active Jessy Ruiz Other nonspecific (a bnormal) findings on radiological and other examinations of body structure NEED PROPH VACC&INOCULAT AGNST OTH SPEC DISEASE V05.8 0 Active Elba Faux RMA Need for prophylacti [...] III 585.3 Active 201 10/25/03 Elba Ryan CÉSARA Chronic kidney disease, Stage III (moder ate) COLON POLYPS ICD-211.3 Inactive Lolis William APR N Medication List Medication Instructions Start Date Stop Date Generic Name NDC Status Provider Patient Instruction NAPROXEN SODIUM 220 MG ORAL TABS 1 three times a day as needed 2 NAPROXEN SODIUM 13220494765 No Longer Active Baltazar Childers MD Active ATORVASTATIN CALCIUM 20 MG ORAL TABS Take 1 tab daily ATORVASTATIN CALCIUM 81581016368 Active Kelly Iraheta LPN Active FUROSEMIDE 40 MG TABS Take one by mouth daily FUROSEMIDE 28961910987 Active Batlazar Childers MD Active LISINOPRIL 20 MG TABS Take one by mouth daily at bedtime LISINOPRIL 79602682977 Active KENDALL Juarez Active ONETOUCH ULTRA BLUE STRP Test twice a day GLUCO SE BLOOD 98499884817 No Longer Active Baltazar Childers MD Active TRUEPLUS LANCETS 33G MISC Test twice a day LANCET S 77620704853 Active KENDALL Juarez Active TRUEDRAW LANCING DEVICE MISC Test twice a day L ANCET DEVICES 14993749433 Active Baltazar Childers MD Active TRUETRACK TEST STRP Test twice a day GLUCOSE BLOO D 59910994452 Active Baltazar Childers MD Active TRUETRACK BLOOD GLUCOSE W/DEVICE KIT Test twice a day BLOOD GLUCOSE MONITORING SUPPL 96107899316 Active Baltazar Childers MD Activ e HYDROCODONE-ACETAMINOPHEN 7.5-325 MG TABS Take 1 tab every 6-8 hour s PRN HYDROCODONE-ACETAMINOPHEN 71109171059 Active Baltazar Childers MD Active NORTRIPTYLINE HCL 50 MG CAPS 1 every night for neuropathy 4 NORTRIPTYLINE HCL 88319543339 Active Baltazar Childers MD Acti ve GABAPENTIN 300 MG CAPS 1 three times a day GABAPE NTIN 69695267490 Active KENDALL Juarez Active GABAPENTIN 300 MG CAPS 1 po qd x 2 days, then 1 po BID x 2 d ays, then 1 po TID GABAPENTIN 92709492374 No Longer Active Baltazar silverman MD Active TRAMADOL HCL 50 MG TABS 1 twice a day as needed for pain TRAMADOL HCL 56703636308 Active Baltazar Childers MD Active NAPROXEN 500 MG TABS 1 tablet by mouth twice daily NAPROXEN 71337728990 No Longer Active Baltazar Childers MD Active PROAIR HFA 108 (90 BASE) MCG/ACT AERS 2 puffs four times a d ay as needed ALBUTEROL SULFATE 90553376156 Active KENDALL Juarez Active DEPO-TESTOSTERONE 200 MG/ML OIL as directed RUFINO TOSTERONE CYPIONATE 23425613963 No Longer Active Baltazar Childers MD Active LIPITOR 20 MG TABS Take one by mouth daily in evening ATORVASTATIN CALCIUM 70749082272 No Longer Active Baltazar Childers MD Activ e CRESTOR 10 MG TABS 1 by mouth every day R OSUVASTATIN CALCIUM 75667006475 No Longer Active Baltazar Childers MD Activ e PHENTERMINE HCL 37.5 MG TABS Take one by mouth daily 2 PHENTERMINE HCL 49555712090 No Longer Active Baltazar Childers MD Activ e ROBAXIN-750 750 MG TABS Take one by mouth daily ME THOCARBAMOL 33916656060 Active Baltazar Childers MD Active TIZANIDINE HCL 4 MG TABS 1 daily as needed for muscle spasm 2011 TIZANIDINE HCL 37596514554 No Longer Active Dawna Salazar RN Active [id number] 50-325-40 MG TABS 1 four time s a day as needed for heacache [id number] 73610256062 Active Baltazar Childers MD Active SUMATRIPTAN SUCCINATE 100 MG TABS 1 tablet by mouth at onset of migraine as needed SUMATRIPTAN SUCCINATE 59751493157 Active KENDALL Juarez Active LORATADINE 10 MG TABS Take one by mouth daily LORATADINE 30494014155 Active Baltazar Childers MD Active OMEPRAZOLE 20 MG CPDR Take one by mouth daily OMEPRAZOLE 74051031602 Active Baltazar Childers MD Active HYDROXYZINE HCL 25 MG TABS Take one by mouth daily HYDROXYZINE HCL 85874650231 Active Baltazar Childers MD Active GLIPIZIDE 10 MG TABS 1 tablet by mouth twice daily GLIPIZIDE 12690429982 Active Bella Suarez APRN Active ALPRAZOLAM 1 MG TABS 1 tablet by mouth daily at bedtime for restles s leg ALPRAZOLAM 76769220333 Active Baltazar Childers MD Active METFORMIN HCL 1000 MG TABS Take one by mouth twice daily METFORMIN HCL 92732667002 Active Baltazar Childers MD Active TIZANIDINE HCL 4 MG TABS 1 daily as needed for muscle spasm 2011 TIZANIDINE HCL 4 MG TABS 523054 TIZANIDINE HCL Inactiv e PHENTERMINE HCL 37.5 MG TABS Take one by mouth daily 2 PHENTERMINE HCL 37.5 MG TABS 958031 PHENTERMINE HCL Inactive CRESTOR 10 MG TABS 1 by mouth every day C RESTOR 10 MG TABS ROSUVASTATIN CALCIUM Inactive LIPITOR 20 MG TABS Take one by mouth daily in evening LIPITOR 20 MG TABS 518163 ATORVASTATIN CALCIUM Inactive DEPO-TESTOSTERONE 200 MG/ML OIL as directed 8 DEPO-TESTOSTERONE 200 MG/ML OIL 162809 TESTOSTERONE CYPIONATE Inactive NAPROXEN 500 MG TABS 1 tablet by mouth twice daily 201 07/27/22 NAPROXEN 500 MG TABS 753192 NAPROXEN Inactive GABAPENTIN 300 MG CAPS 1 po qd x 2 days, then 1 po BID x 2 d ays, then 1 po TID GABAPENTIN 300 MG CAPS 245802 GABAPENTIN Inact amie ONETOUCH ULTRA BLUE STRP Test twice a day ONETOUCH ULTRA BLUE STRP GLUCOSE BLOOD Inactive NAPROXEN SODIUM 220 MG ORAL TABS 1 three times a day as needed 2 NAPROXEN SODIUM 220 MG ORAL TABS 399258 NAPROXEN SODIUM Inactive Immunizations Vaccine Administration Date Value Standard Floyd cription pneumococcal immunization administered Pneumovax 23 [CVX33] pneumococcal polysaccharide vaccine, 23 valent Seasonal influenza vaccine, injectable, containing preservative, for > 3 years old (Afluria, FluLaval, Fluzone, Fluvirin, Fluarix, Agriflu(>= 18 yo)) Fluzone (>3 yrs.) [[id number]] Influenza, seasonal, inject able Seasonal influenza vaccine, injectable, containing preservative, for > 3 years old (Afluria, FluLaval, Fluzone, Fluvirin, Fluarix, Agriflu(>= 18 yo)) Fluzone (>3 yrs.) [[id number]] Influenza, seasonal, inject able Vital Signs Date Name Value Unit Range Description blood pressure, diastolic - 8462-4 84 mm[Hg] BP [place] blood pressure, systolic - 8480-6 115 mm[Hg] BP sys pulse rate E&M - 8867-4 100 /min H eart rate temperature E&M 97.2 [degF] Body temp erature weight E&M - 3141-9 230 [lb_av] Weigh t Measured blood pressure, diastolic - 8462-4 82 mm[Hg] BP [place] blood pressure, systolic - 8480-6 115 mm[Hg] BP sys pulse rate E&M - 8867-4 99 /min H eart rate temperature E&M 97.6 [degF] Body temp erature weight E&M - 3141-9 229.6 [lb_av] Weigh t Measured blood pressure, diastolic - 8462-4 80 mm[Hg] BP [place] blood pressure, systolic - 8480-6 121 mm[Hg] BP sys pulse rate E&M - 8867-4 102 /min H eart rate temperature E&M 98.1 [degF] Body temp erature weight E&M - 3141-9 226 [lb_av] Weigh t Measured Diagnostic Results Date Name Value Unit Range Description Lab Report: Basic Metabolic Panel - Chem istry sodium, serum 140 mmol/L 567-520 7527/05/05 potassium, serum 4.9 mmol/L 3.5-5.2 chloride, serum 99 mmol/L 98-107 carbon dioxide, venous blood 34.3 mmol/L 21.0-32 .0 blood glucose 132 mg/dL 65-110 calcium, serum 10.1 mg/dL 8.5-10.1 urea nitrogen, blood 23 mg/dL 7-18 creatinine, serum 2.00 mg/dL 0.60-1.30 Lab Report: CBC, HGBA1C, Renal Panel - C hemistry hemoglobin A1C, blood, as % of total hemoglobin 7.9 % 4.3-6.0 sodium, serum 139 mmol/L 558-858 6329/02/04 potassium, serum 5.4 mmol/L 3.5-5.2 chloride, serum 99 mmol/L 98-107 carbon dioxide, venous blood 36.7 mmol/L 21.0-32 .0 creatinine, serum 2.02 mg/dL 0.55-1.30 blood glucose 181 mg/dL 65-110 urea nitrogen, blood 24 mg/dL 7-18 calcium, serum 9.4 mg/dL 8.5-10.1 Lab Report: CBC, HGBA1C, Renal Panel - H ematology leukocyte count, blood 8.0 10^3/MM^3 10*3/mm3 4.6-10.2 erythrocyte (RBC) count 3.66 10^6/MM^3 10*6/mm3 4.04-5.4 8 hemoglobin, blood 11.7 g/dL 12.0-16.0 hematocrit, blood 35.6 % 36.0-46.0 mean corpuscular volume, RBC 97 fL 80-97 mean corpuscular hemoglobin, RBC 31.9 pg 27. 0-31.2 mean corpuscular hemoglobin concentration, RBC 32.9 G/DL % 31.8-35.4 red blood cell distribution width 15.2 % 11 .6-14.8 platelet count 308 10^3/MM^3 10*3/mm3 142-424 Lab Report: Comp. Metabolic Panel, Lipid Panel - Chemistry sodium, serum 138 mmol/L 402-938 8476/11/23 carbon dioxide, venous blood 32.4 mmol/L 21.0-32 .0 potassium, serum 5.7 mmol/L 3.5-5.2 chloride, serum 98 mmol/L 98-107 blood glucose 136 mg/dL 65-110 urea nitrogen, blood 18 mg/dL 7-18 creatinine, serum 1.71 mg/dL 0.55-1.30 alanine aminotransferase (SGPT), serum 71 U/L 12-78 aspartate aminotransferase (SGOT), serum 34 U/L 15-37 calcium, serum 9.4 mg/dL 8.5-10.1 bilirubin, serum, total 0.40 mg/dL 0.00-1.00 cholesterol, serum 405 mg/dL 353-798 3514/11/23 triglyceride, serum, fasting 709 mg/dL 30-200 HDL cholesterol, serum 53 mg/dL 32-96 LDL cholesterol, serum 210 mg/dL 0-130 Lab Report: HGBA1C - Chemistry hemoglobin A1C, blood, as % of total hemoglobin 7.3 % 4.3-6.0 hemoglobin A1C, blood, as % of total hemoglobin 7.7 % 4.3-6.0 Lab Report: MICROALB/CREAT W/RATIO - Maryam jo albumin/creatinine ratio, urine < 30 mg/g mg/g{creat} 0-2 9 Lab Report: MICROALB/CREAT W/RATIO - Lab microalbumin, urine 10 0-19 Office Visit: Medication refill - Chemis try cholesterol, target level 200 mg/dL LDL target level 70 mg/dL HDL cholesterol, serum, target level 40 mg/dL triglyceride, target level 150 mg/dL Encounters Code Encounter Date Provider Facility CPT-05658 Level 4 Est. Patient 16:54:07 [employer] Baltazar Childers MD [facility] CPT-91588 Level 4 Est. Patient 15:42:12 CDT Baltazar Childers MD [facility] CPT-67591 Level 4 Est. Patient 11:29:55 CDT Baltazar Childers MD [facility] CPT-83660 Level 4 Est. Patient 14:15:19 CDT Baltazar Childers MD [facility] CPT-57052 Level 4 Est. Patient 12:20:13 CDT Baltazar Childers MD [facility] CPT-59988 Level 4 Est. Patient 14:52:45 [employer] Baltazar Childers MD [facility] CPT-92166 Level 4 Est. Patient 14:18:34 [employer] Baltazar Childers MD [facility] CPT-77305 Level 4 Est. Patient 15:18:29 CDT Baltazar Childers MD [facility] CPT-97797 Level 3 Est. Patient 12:45:34 CDT Baltazar Childers MD [facility] CPT-14084 Level 3 Est. Patient 10:10:11 CDT Baltazar Childers MD [facility] CPT-60073 Level 3 Est. Patient 14:07:50 CDT Baltazar Childers MD [facility] CPT-25038 Level 4 Est. Patient 12:26:10 [employer] Baltazar Childers MD [facility] CPT-71987 Level 4 Est. Patient 14:45:38 CDT Baltazar Childers MD [facility] CPT-13795 Level 4 New Patient 12:30:48 CDT Baltazar hinton MD [facility] Procedures Code Procedure Name Date Entry Date Standard Desc ription CPT-58886 Venipuncture Draw Fee 14:50:21 [employer] CPT-99033 Immunization Single Admin 17:35:35 CDT 2014 CPT-43791 Fluzone Quadrivalent preservative free ( >=3yrs.) 17:35:35 CDT CPT-03991 Venipuncture Draw Fee 12:10:27 [employer] CPT-02988 Fluzone Quadrivalent Intramuscular Suspe nsion 0.5 ML 10:49:13 CDT CPT-49369 First Vx Component - Ix admi n via ID IM or jet inj without physician counseling 15:17:19 [employer] CPT-63400 Pneumovax 23 15:17:19 [employer] CPT-92728 Pneumovax 14:52:45 [employer] CPT-94641 Venipuncture Draw Fee 14:06:30 [employer] CPT-000 Give Appropriate Flu Vaccine 14:18:34 [employer] 2 CPT-55329 Administration single or combination vac cine inc oral 14:46:00 [employer] CPT-22743 Influenza split virus > age 3 14:46:00 [employer] CPT-OV Office Visit 19:13:16 CDT CPT-88588 Zostavax 18:41:56 CDT CPT-85933 Administration single or combination vac cine inc oral 12:56:39 CDT CPT-91683 Zoster Vaccine (Zostavax) 12:56:39 CDT 2012 CPT-76395 Venipuncture Draw Fee 10:58:57 CDT CPT-21271 Sono pelvis non OB uterus ovaries cervix 17:45:04 CDT CPT-07703 Sono retroperitoneal complete kidneys an d bladder 17:14:36 CDT CPT-OV Office Visit 14:59:38 [employer] CPT-J1070 Depo Testosterone 100 mg 14:50:13 CDT 03/05 CPT-15997 Abx/Therapy Injection 14:50:13 CDT CPT-89454 Administration single or combination vac cine inc oral 14:34:43 CDT CPT-04150 Influenza split virus > age 3 14:34:43 CDT CPT-J1070 Depo Testosterone 100 mg 17:37:13 CDT 01/11 CPT-14845 Abx/Therapy Injection 17:37:13 CDT CPT-95009 Venipuncture Draw Fee 16:30:13 CDT CPT-80934 Venipuncture Draw Fee 16:29:43 CDT CPT-J1070 Depo Testosterone 100 mg 14:45:38 CDT 01/11
--- OUTSIDE RECORDS SUMMARY | 2019-10-27 12:01 | XMS REPORT | Clinical Summary ---
Author Author Admin, Elba Lance [employer] Address Unknown Phone Unavailable Allergies, Adverse Reactions, 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 [place] [employer] LAYER Benign neoplasm of colon PERIPHERAL NEUROPATHY 356.9 [...] atherosclerosis of unspecified type of vessel, [place] or graft OTH NONSPC ABN [...] stage III 585.3 Active 201 10/25/03 Elba LINDSEYA Chronic kidney disease, Stage III (moder ate) Diabetes Mellitus, Type II, controlled w/ renal complications 250.4 0 Active Baltazar Childers MD Diabetes mellitus wi th renal manifestations, type II or unspecified type, not stated as uncontrolled Diabetes Mellitus, Type II, controlled w/vascular complications 250 .70 Active aBltazar Childers MD Diabetes mellitus wi th peripheral [...] 244.9 Active Carina Tucker LPN Unspecified hypothyroidism COLON POLYPS ICD-211.3 Inactive Lolis Bynum Medication List Medication Instructions Start Date Stop Date Generic Name NDC Status Provider Patient Instruction AMLODIPINE BESYLATE 5 MG ORAL TABS 1 tab daily for HTN AMLODIPINE BESYLATE 84272673341 Active KENDALL Juarez Active SYNTHROID 0.1 MG TAB 1 tablet by mouth daily LE VOTHYROXINE SODIUM 70899702786 Active Shonna Parker APRN Active GLIPIZIDE 10 MG TAB take 2 tablets twice daily GLIPIZIDE 56969430666 Active Baltazar Childers MD Active SUCRALFATE 1 GM TABS 1 four times a day to coat the stomach 2015 SUCRALFATE 58454857086 No Longer Active Baltazar Childers MD Active PEN NEEDLES 31G X 6 MM MISC use 1 daily INSULIN PEN NEEDLE 00004041847 Active Gato Rae MD Active TOUJEO SOLOSTAR 300 UNIT/ML SC SOPN 10 units SC daily INSULIN GLARGINE 63874365491 No Longer Active [place] ARGUETA Active LANTUS SOLOSTAR 100 UNIT/ML SC SOPN 10 units SC daily INSULIN GLARGINE 62298756641 Active KENDALL Juarez Active NAPROXEN SODIUM 220 MG ORAL TABS 1 three times a day as needed 2 NAPROXEN SODIUM 56572787001 No Longer Active Baltazar Childers MD Active ATORVASTATIN CALCIUM 20 MG ORAL TABS Take 1 tab daily ATORVASTATIN CALCIUM 68864842143 Active KENDALL Juarez Active FUROSEMIDE 40 MG TABS Take one by mouth daily FUROSEMIDE 01391639371 Active Baltazar Childers MD Active LISINOPRIL 20 MG TABS Take one by mouth daily at bedtime LISINOPRIL 18162195870 No Longer Active Baltazar Childers MD Active ONETOUCH ULTRA BLUE STRP Test twice a day GLUCO SE BLOOD 66832495314 No Longer Active Baltazar Childers MD Active TRUEPLUS LANCETS 33G MISC Test twice a day LANCET S 86971610053 Active KENDALL Juarez Active TRUEDRAW LANCING DEVICE MISC Test twice a day L ANCET DEVICES 98052119672 Active Baltazar Childers MD Active TRUETRACK TEST STRP Test twice a day GLUCOSE BLOO D 58552162073 Active KENDALL Juarez Active TRUETRACK BLOOD GLUCOSE W/DEVICE KIT Test twice a day BLOOD GLUCOSE MONITORING SUPPL 92182431979 Active Baltazar Childers MD Activ e HYDROCODONE-ACETAMINOPHEN 7.5-325 MG TABS Take 1 tab every 6-8 hour s PRN HYDROCODONE-ACETAMINOPHEN 08139505772 Active Baltazar Childers MD Active NORTRIPTYLINE HCL 50 MG CAPS 1 every night for neuropathy 4 NORTRIPTYLINE HCL 79654299577 Active Baltazar Childers MD Acti ve GABAPENTIN 300 MG CAPS 1 three times a day GABAPE NTIN 96388368738 Active Baltazar Childers MD Active GABAPENTIN 300 MG CAPS 1 po qd x 2 days, then 1 po BID x 2 d ays, then 1 po TID GABAPENTIN 50467144204 No Longer Active Baltazar silverman MD Active TRAMADOL HCL 50 MG TABS 1 twice a day as needed for pain TRAMADOL HCL 62908342198 Active Baltazar Childers MD Active NAPROXEN 500 MG TABS 1 tablet by mouth twice daily NAPROXEN 61018285753 No Longer Active Baltazar Childers MD Active PROAIR HFA 108 (90 BASE) MCG/ACT AERS 2 puffs four times a d ay as needed ALBUTEROL SULFATE 11136067495 Active Baltazar Childers MD Active DEPO-TESTOSTERONE 200 MG/ML OIL as directed RUFINO TOSTERONE CYPIONATE 50834888220 No Longer Active Baltazar Childers MD Active LIPITOR 20 MG TABS Take one by mouth daily in evening ATORVASTATIN CALCIUM 52355400591 No Longer Active Baltazar Childers MD Activ e CRESTOR 10 MG TABS 1 by mouth every day R OSUVASTATIN CALCIUM 31028728926 No Longer Active Baltazar Childers MD Activ e PHENTERMINE HCL 37.5 MG TABS Take one by mouth daily 2 PHENTERMINE HCL 85749986046 No Longer Active Baltazar Childers MD Activ e ROBAXIN-750 750 MG TABS Take one by mouth daily ME THOCARBAMOL 16833455252 Active Baltazar Childers MD Active TIZANIDINE HCL 4 MG TABS 1 daily as needed for muscle spasm 2011 TIZANIDINE HCL 19824905079 No Longer Active Dawna Salazar RN Active [id number] 50-325-40 MG TABS 1 four time s a day as needed for heacache [id number] 39650317473 Active KENDALL Juarez Active SUMATRIPTAN SUCCINATE 100 MG TABS 1 tablet by mouth at onset of migraine as needed SUMATRIPTAN SUCCINATE 43896112590 Active KENDALL Juarez Active LORATADINE 10 MG TABS Take one by mouth daily LORATADINE 17045201572 Active Beth KENDALL Carr Active OMEPRAZOLE 20 MG CPDR Take one by mouth daily OMEPRAZOLE 14429786732 Active Baltazar Childers MD Active HYDROXYZINE HCL 25 MG TABS Take one by mouth daily HYDROXYZINE HCL 98256302475 Active Baltazar Childers MD Active ALPRAZOLAM 1 MG TABS 1 tablet by mouth daily at bedtime for restles s leg ALPRAZOLAM 87879480385 Active Baltazar Childers MD Active METFORMIN HCL 1000 MG TABS Take one by mouth twice daily METFORMIN HCL 43213113018 Active Baltazar Childers MD Active TIZANIDINE HCL 4 MG TABS 1 daily as needed for muscle spasm 2011 TIZANIDINE HCL 4 MG TABS 280383 TIZANIDINE HCL Inactiv e PHENTERMINE HCL 37.5 MG TABS Take one by mouth daily 2 PHENTERMINE HCL 37.5 MG TABS 812659 PHENTERMINE HCL Inactive CRESTOR 10 MG TABS 1 by mouth every day C RESTOR 10 MG TABS 290450 ROSUVASTATIN CALCIUM Inactive LIPITOR 20 MG TABS Take one by mouth daily in evening LIPITOR 20 MG TABS 854910 ATORVASTATIN CALCIUM Inactive DEPO-TESTOSTERONE 200 MG/ML OIL as directed 8 DEPO-TESTOSTERONE 200 MG/ML OIL 936162 TESTOSTERONE CYPIONATE Inactive NAPROXEN 500 MG TABS 1 tablet by mouth twice daily 201 07/27/22 NAPROXEN 500 MG TABS 211962 NAPROXEN Inactive GABAPENTIN 300 MG CAPS 1 po qd x 2 days, then 1 po BID x 2 d ays, then 1 po TID GABAPENTIN 300 MG CAPS 186023 GABAPENTIN Inact amie ONETOUCH ULTRA BLUE STRP Test twice a day ONETOUCH ULTRA BLUE STRP GLUCOSE BLOOD Inactive NAPROXEN SODIUM 220 MG ORAL TABS 1 three times a day as needed 2 NAPROXEN SODIUM 220 MG ORAL TABS 748370 NAPROXEN SODIUM Inactive TOUJEO SOLOSTAR 300 UNIT/ML SC SOPN 10 units SC daily TOUJEO SOLOSTAR 300 UNIT/ML SC SOPN INSULIN GLARGINE Inac tive SUCRALFATE 1 GM TABS 1 four times a day to coat the stomach 2015 SUCRALFATE 1 GM TABS 179857 SUCRALFATE Inactive Immunizations Vaccine Administration Date Value Standard Floyd cription pneumococcal immunization administered Pneumovax 23 [CVX33] pneumococcal polysaccharide vaccine, 23 valent Seasonal influenza vaccine, injectable, containing preservative, for > 3 years old (Afluria, FluLaval, Fluzone, Fluvirin, Fluarix, Agriflu(>= 18 yo)) Fluzone (>3 yrs.) [VKG960] Influenza, seasonal, inject able Seasonal influenza vaccine, injectable, containing preservative, for > 3 years old (Afluria, FluLaval, Fluzone, Fluvirin, Fluarix, Agriflu(>= 18 yo)) Fluzone (>3 yrs.) [RTQ102] Influenza, seasonal, inject able Vital Signs Date Name Value Unit Range Description blood pressure, diastolic 69 mm[Hg] BP [place] blood pressure, systolic 108 mm[Hg] BP sys height E&M 66.5 [in_us] Bdy height pulse rate E&M 93 /min Heart rate temperature E&M 98.0 [degF] Body temp erature weight E&M 229.5 [lb_av] Weight Measure d blood pressure, diastolic 48 mm[Hg] BP [place] blood pressure, systolic 95 mm[Hg] BP sys pulse rate E&M 72 /min Heart rate temperature E&M 97.9 [degF] Body temp erature weight E&M 239 [lb_av] Weight Measure d blood pressure, diastolic 81 mm[Hg] BP [place] blood pressure, systolic 139 mm[Hg] BP sys pulse rate E&M 97 /min Heart rate temperature E&M 98 [degF] Body temp erature weight E&M 234.5 [lb_av] Weight Measure d blood pressure, diastolic 76 mm[Hg] BP [place] blood pressure, systolic 124 mm[Hg] BP sys pulse rate E&M 100 /min Heart rate temperature E&M 97.8 [degF] Body temp erature weight E&M 240.0 [lb_av] Weight Measure d Diagnostic Results Date Name Value Unit Range Description Lab Report: Basic Metabolic Panel, HGBA1 C - Chemistry sodium, serum 143 mmol/L 393-423 4233/06/19 potassium, serum 5.9 mmol/L 3.5-5.2 chloride, serum 105 mmol/L 98-107 carbon dioxide, venous blood 30.2 mmol/L 21.0-32 .0 blood glucose 189 mg/dL 65-110 calcium, serum 9.7 mg/dL 8.5-10.1 urea nitrogen, blood 37 mg/dL 7-18 creatinine, serum 2.11 mg/dL 0.55-1.30 hemoglobin A1C, blood, as % of total hemoglobin 8.2 % 4.3-6.0 Lab Report: CBC, Renal Panel - Chemistry sodium, serum 142 mmol/L 341-535 0236/08/11 potassium, serum 4.8 mmol/L 3.5-5.2 chloride, serum [...] count 304 10^3/MM^3 10*3/mm3 142-424 Lab Report: Comp. Metabolic Panel, Lipid Panel - Chemistry blood glucose 129 mg/dL 65-110 chloride, serum 101 mmol/L 98-107 potassium, serum 4.9 mmol/L 3.5-5.2 carbon dioxide, venous blood 32.5 mmol/L 21.0-32 .0 sodium, serum 143 mmol/L 487-684 5157/12/19 urea nitrogen, blood 18 mg/dL 7-18 creatinine, serum 1.79 mg/dL 0.55-1.30 alanine aminotransferase (SGPT), serum 34 U/L 12-78 aspartate aminotransferase (SGOT), serum 26 U/L 15-37 calcium, serum 8.9 mg/dL 8.5-10.1 bilirubin, serum, total 0.30 mg/dL 0.00-1.00 cholesterol, serum 214 mg/dL 689-322 7291/12/19 triglyceride, serum, fasting 351 mg/dL 30-200 HDL cholesterol, serum 52 mg/dL 32-96 LDL cholesterol, serum 92 mg/dL 0-130 Lab Report: HEMOGLOBIN A1c, MicroAlb Ran dom w/creat/6517, Urinalysis, Co ... - Urinalysis microalbumin/total urine volume 9 mg/L Units converted. See lab report for original value. microalbumin/creatinine ratio, urine 24 MCG/MG CREAT mg/L <30 Lab Report: HGBA1C - Chemistry hemoglobin A1C, blood, as % of total hemoglobin 7.3 % 4.3-6.0 Encounters Code Encounter Date Provider Facility CPT-62417 Level 4 Est. Patient 14:22:31 CDT Baltazar Childers MD [facility] CPT-10196 Level 4 Est. Patient 15:44:38 [facility] Level 4 Est. Patient 11:34:17 CDT Baltazar Childers MD [facility] CPT-11100 Level 3 Est. Patient 16:40:40 CDT Baltazar Childers MD [facility] CPT-10416 Level 4 Est. Patient 10:41:24 CDT Baltazar Childers MD [facility] CPT-19145 Level 4 Est. Patient 16:01:48 CDT Baltazar Childers MD [facility] CPT-74797 Level 4 Est. Patient 16:54:07 MAT PUNCHER Baltazar Childers MD [facility] CPT-84253 Level 4 Est. Patient 15:42:12 CDT Baltazar Childers MD [facility] CPT-52047 Level 4 Est. Patient 11:29:55 CDT Baltazar Childers MD [facility] CPT-38855 Level 4 Est. Patient 14:15:19 CDT Baltazar Childers MD [facility] CPT-27418 Level 4 Est. Patient 12:20:13 CDT Baltazar Childers MD [facility] CPT-33892 Level 4 Est. Patient 14:52:45 MAT PUNCHER Baltazar Childers MD [facility] CPT-08240 Level 4 Est. Patient 14:18:34 MAT PUNCHER Baltazar Childers MD [facility] CPT-01361 Level 4 Est. Patient 15:18:29 CDT Baltazar Childers MD [facility] CPT-37586 Level 3 Est. Patient 12:45:34 CDT Baltazar Childers MD [facility] CPT-67124 Level 3 Est. Patient 10:10:11 CDT Baltazar Childers MD [facility] CPT-10967 Level 3 Est. Patient 14:07:50 CDT Baltazar Childers MD [facility] CPT-14876 Level 4 Est. Patient 12:26:10 MAT PUNCHER Baltazar Childers MD [facility] CPT-21615 Level 4 Est. Patient 14:45:38 CDT Baltazar Childers MD [facility] CPT-50758 Level 4 New Patient 12:30:48 CDT Baltazar hinton MD [facility] Procedures Code Procedure Name Date Entry Date Standard Desc ription CPT-21756 Venipuncture Draw Fee 12:04:12 CDT CPT-37614 Lipid - LAB USE ONLY 17:39:15 MAT PUNCHER 9 CPT-76341 HGBA1C - LAB USE ONLY 17:39:15 MAT PUNCHER CPT-15911 CMP - LAB USE ONLY 17:39:14 MAT PUNCHER CPT-69751 Venipuncture Draw Fee 17:39:14 MAT PUNCHER CPT-89943 First Vx - Ix admin via ID I M or jet injects without counseling by physician 16:55:17 MAT PUNCHER CPT-50365 Fluzone Quadrivalent Intramuscular Suspe nsion 0.5 ML 16:55:17 MAT PUNCHER CPT-47031 Renal Panel - LAB USE ONLY 17:39:20 CDT 201 10/31/07 CPT-62217 CBC - LAB USE ONLY 17:39:20 CDT CPT-85656 Venipuncture Draw Fee 17:39:20 CDT CPT-77106 Venipuncture Draw Fee 14:33:30 CDT CPT-10803 Renal Panel - LAB USE ONLY 14:33:30 CDT 201 10/31/07 CPT-51433 CBC - LAB USE ONLY 14:33:29 CDT CPT-11873 Venipuncture Draw Fee 14:50:21 MAT PUNCHER CPT-97298 Immunization Single Admin 17:35:35 CDT 2014 CPT-01602 Fluzone Quadrivalent preservative free ( >=3yrs.) 17:35:35 CDT CPT-48448 Venipuncture Draw Fee 12:10:27 MAT PUNCHER CPT-74173 Fluzone Quadrivalent Intramuscular Suspe nsion 0.5 ML 10:49:13 CDT CPT-09680 First Vx Component - Ix admi n via ID IM or jet inj without physician counseling 15:17:19 MAT PUNCHER CPT-49037 Pneumovax 23 15:17:19 MAT PUNCHER CPT-68303 Pneumovax 14:52:45 MAT PUNCHER CPT-44571 Venipuncture Draw Fee 14:06:30 MAT PUNCHER CPT-000 Give Appropriate Flu Vaccine 14:18:34 MAT PUNCHER 2 CPT-59997 Administration single or combination vac cine inc oral 14:46:00 MAT PUNCHER CPT-28217 Influenza split virus > age 3 14:46:00 MAT PUNCHER CPT-OV Office Visit 19:13:16 CDT CPT-94960 Zostavax 18:41:56 CDT CPT-09941 Administration single or combination vac cine inc oral 12:56:39 CDT CPT-81661 Zoster Vaccine (Zostavax) 12:56:39 CDT 2012 CPT-61026 Venipuncture Draw Fee 10:58:57 CDT CPT-17953 Sono pelvis non OB uterus ovaries cervix 17:45:04 CDT CPT-54455 Sono retroperitoneal complete kidneys an d bladder 17:14:36 CDT CPT-OV Office Visit 14:59:38 MAT PUNCHER CPT-J1070 Depo Testosterone 100 mg 14:50:13 CDT 03/05 CPT-07470 Abx/Therapy Injection 14:50:13 CDT CPT-36626 Administration single or combination vac cine inc oral 14:34:43 CDT CPT-25253 Influenza split virus > age 3 14:34:43 CDT CPT-J1070 Depo Testosterone 100 mg 17:37:13 CDT 01/11 CPT-02336 Abx/Therapy Injection 17:37:13 CDT CPT-77700 Venipuncture Draw Fee 16:30:13 CDT CPT-58896 Venipuncture Draw Fee 16:29:43 CDT CPT-J1070 Depo Testosterone 100 mg 14:45:38 CDT 01/11
--- OUTSIDE RECORDS SUMMARY | 2019-10-27 12:02 | XMS REPORT | Clinical Summary ---
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 Benign neoplasm of colon PERIPHERAL NEUROPATHY 356.9 Active Baltazar Nickerson MD Unspecified idiopathic peripheral neuropathy PERSONAL HISTORY OF COLONIC POLYPS V12.72 Active 2 Lolis Thomas APRN Personal history of colonic polyps PARESTHESIA, HANDS 782.0 Active Baltazar Childers MD Disturbance of skin sensation FH DIABETES V18.0 Active Baltazar Childers MD Family history of diabetes mellitus ANEMIA 285.9 Active Baltazar Childers MD Anemia, unspecified RENAL INSUFFICIENCY 593.9 Active Baltazar barron MD Unspecified disorder of kidney and ureter CAD 414.00 Active Gladys Yazmin Coronar y atherosclerosis of unspecified type of vessel, pauma or graft OTH NONSPC ABN FINDNG RAD&OTH [...] medical examination at a health care facility COLON POLYPS ICD-211.3 Inactive Lolis Barron Medication List Medication Instructions Start Date Stop Date Generic Name NDC Status Provider Patient Instruction TRUEPLUS LANCETS 33G MISC Test twice a day LANCET S 49665200943 Active Baltazar Childers MD Active TRUEDRAW LANCING DEVICE MISC Test twice a day L ANCET DEVICES 89255136612 Active Baltazar Childers MD Active TRUETRACK TEST STRP Test twice a day GLUCOSE BLOO D 06789668385 Active Baltazar Childers MD Active TRUETRACK BLOOD GLUCOSE W/DEVICE KIT Test twice a day BLOOD GLUCOSE MONITORING SUPPL 50986857083 Active Bella Suarez APRN Active HYDROCODONE-ACETAMINOPHEN 7.5-325 MG TABS Take 1 tab every 6-8 hour s PRN HYDROCODONE-ACETAMINOPHEN 09405307226 Active Baltazar Childers MD Active NORTRIPTYLINE HCL 50 MG CAPS 1 every night for neuropathy 4 NORTRIPTYLINE HCL 87710898928 Active Bella Suarez APRN Active GABAPENTIN 300 MG CAPS 1 three times a day GABAPE NTIN 18072101577 Active Baltazar Childers MD Active GABAPENTIN 300 MG CAPS 1 po qd x 2 days, then 1 po BID x 2 d ays, then 1 po TID GABAPENTIN 18315807720 No Longer Active Baltazar silverman MD Active TRAMADOL HCL 50 MG TABS 1 twice a day as needed for pain TRAMADOL HCL 82262964409 Active Baltazar Childers MD Active NAPROXEN 500 MG TABS 1 tablet by mouth twice daily NAPROXEN 14163429254 No Longer Active Baltazar Childers MD Active PROAIR HFA 108 (90 BASE) MCG/ACT AERS 2 puffs four times a d ay as needed ALBUTEROL SULFATE 27147871480 Active Baltazar Childers MD Active DEPO-TESTOSTERONE 200 MG/ML OIL as directed RUFINO TOSTERONE CYPIONATE 93187448496 No Longer Active Baltazar Childers MD Active LIPITOR 20 MG TABS Take one by mouth daily in evening ATORVASTATIN CALCIUM 46585266718 No Longer Active Baltazar Childers MD Activ e CRESTOR 10 MG TABS 1 by mouth every day R OSUVASTATIN CALCIUM 19213127086 No Longer Active Baltazar Childers MD Activ e PHENTERMINE HCL 37.5 MG TABS Take one by mouth daily 2 PHENTERMINE HCL 83265147805 No Longer Active Baltazar Childers MD Activ e ROBAXIN-750 750 MG TABS Take one by mouth daily ME THOCARBAMOL 73110826358 Active Baltazar Childers MD Active TIZANIDINE HCL 4 MG TABS 1 daily as needed for muscle spasm 2011 TIZANIDINE HCL 65597613856 No Longer Active Dawna Salazar RN Active [employer] ULTRA BLUE STRP Test twice a day GLUCO SE BLOOD 64388628323 Active Baltazar Childers MD Active [id number] 50-325-40 MG TABS 1 four time s a day as needed for heacache [id number] 81265498179 Active Baltazar Childers MD Active SUMATRIPTAN SUCCINATE 100 MG TABS 1 tablet by mouth at onset of migraine as needed SUMATRIPTAN SUCCINATE 53395933272 Active Baltazar barron MD Active LORATADINE 10 MG TABS Take one by mouth daily LORATADINE 36471090079 Active Baltazar Childers MD Active FUROSEMIDE 40 MG TABS Take one by mouth daily FUROSEMIDE 45055116252 Active Baltazar Childers MD Active LISINOPRIL 20 MG TABS Take one by mouth daily at bedtime LISINOPRIL 82392666171 Active Bella Suarez APRN Active OMEPRAZOLE 20 MG CPDR Take one by mouth daily OMEPRAZOLE 04936267129 Active Baltazar Childers MD Active HYDROXYZINE HCL 25 MG TABS Take one by mouth daily HYDROXYZINE HCL 12871584069 Active Baltazar Childers MD Active GLIPIZIDE 10 MG TABS 1 tablet by mouth twice daily GLIPIZIDE 00583200416 Active Baltazar Childers MD Active ALPRAZOLAM 1 MG TABS 1 tablet by mouth daily at bedtime for restles s leg ALPRAZOLAM 11852396853 Active Baltazar Chliders MD Active METFORMIN HCL 1000 MG TABS Take one by mouth twice daily METFORMIN HCL 07481664026 Active Bella Suarez APRN Active TIZANIDINE HCL 4 MG TABS 1 daily as needed for muscle spasm 2011 TIZANIDINE HCL 4 MG TABS 322433 TIZANIDINE HCL Inactiv e PHENTERMINE HCL 37.5 MG TABS Take one by mouth daily 2 PHENTERMINE HCL 37.5 MG TABS 419426 PHENTERMINE HCL Inactive CRESTOR 10 MG TABS 1 by mouth every day C RESTOR 10 MG TABS ROSUVASTATIN CALCIUM Inactive LIPITOR 20 MG TABS Take one by mouth daily in evening LIPITOR 20 MG TABS 681389 ATORVASTATIN CALCIUM Inactive DEPO-TESTOSTERONE 200 MG/ML OIL as directed 8 DEPO-TESTOSTERONE 200 MG/ML OIL 379127 TESTOSTERONE CYPIONATE Inactive NAPROXEN 500 MG TABS 1 tablet by mouth twice daily 201 07/27/22 NAPROXEN 500 MG TABS 071921 NAPROXEN Inactive GABAPENTIN 300 MG CAPS 1 po qd x 2 days, then 1 po BID x 2 d ays, then 1 po TID GABAPENTIN 300 MG CAPS 147544 GABAPENTIN Inact amie Immunizations Vaccine Administration Date Value Standard Floyd cription pneumococcal immunization administered Pneumovax 23 [CVX33] pneumococcal polysaccharide vaccine, 23 valent Seasonal influenza vaccine, injectable, containing preservative, for > 3 years old (Afluria, FluLaval, Fluzone, Fluvirin, Fluarix, Agriflu(>= 18 yo)) Fluzone (>3 yrs.) [[id number]] Influenza, seasonal, inject able Seasonal influenza vaccine, injectable, containing preservative, for > 3 years old (Afluria, FluLaval, Fluzone, Fluvirin, Fluarix, Agriflu(>= 18 yo)) Fluzone (>3 yrs.) [[id number]] Influenza, seasonal, inject able Vital Signs Date Name Value Unit Range Description blood pressure, diastolic - 8462-4 68 mm[Hg] BP salmeron blood pressure, systolic - 8480-6 100 mm[Hg] BP sys pulse rate E&M - 8867-4 93 /min H eart rate temperature E&M 98.0 [degF] Body temp erature weight E&M - 3141-9 229.8 [lb_av] Weigh t Measured blood pressure, diastolic - 8462-4 76 mm[Hg] BP salmeron blood pressure, systolic - 8480-6 134 mm[Hg] BP sys height E&M - 8302-2 66.5 [in_us] Bdy h eight pulse rate E&M - 8867-4 88 /min H eart rate temperature E&M 98.0 [degF] Body temp erature weight E&M - 3141-9 232 [lb_av] Weigh t Measured Diagnostic Results Date Name Value Unit Range Description Lab Report: CBC - Hematology leukocyte count, blood 4.9 10^3/MM^3 10*3/mm3 4.6-10.2 erythrocyte (RBC) count 3.65 10^6/MM^3 10*6/mm3 4.04-5.4 8 hemoglobin, blood 11.6 g/dL 12.0-16.0 hematocrit, blood 35.1 % 36.0-46.0 mean corpuscular volume, RBC 96 fL 80-97 mean corpuscular hemoglobin, RBC 31.7 pg 27. 0-31.2 mean corpuscular hemoglobin concentration, RBC 33.0 G/DL % 31.8-35.4 red blood cell distribution width 14.4 % 11 .6-14.8 platelet count 273 10^3/MM^3 10*3/mm3 142-424 Lab Report: CBC, Renal Panel - Chemistry sodium, serum 139 mmol/L 608-539 6465/01/20 potassium, serum 5.3 mmol/L 3.5-5.2 chloride, serum 99 mmol/L 98-107 carbon dioxide, venous blood 32.0 mmol/L 21.0-32 .0 blood glucose 200 mg/dL 65-110 urea nitrogen, blood 19 mg/dL 7-18 creatinine, serum 1.60 mg/dL 0.60-1.30 calcium, serum 9.5 mg/dL 8.5-10.1 Lab Report: CBC, Renal Panel - Hematolog y leukocyte count, blood 4.7 10^3/MM^3 10*3/mm3 4.6-10.2 erythrocyte (RBC) count 3.70 10^6/MM^3 10*6/mm3 4.04-5.4 8 hemoglobin, blood 11.9 g/dL 12.0-16.0 hematocrit, blood 35.6 % 36.0-46.0 mean corpuscular volume, RBC 96 fL 80-97 mean corpuscular hemoglobin, RBC 32.0 pg 27. 0-31.2 mean corpuscular hemoglobin concentration, RBC 33.3 G/DL % 31.8-35.4 red blood cell distribution width 14.9 % 11 .6-14.8 platelet count 262 10^3/MM^3 10*3/mm3 142-424 Lab Report: MICROALBUMIN, Lipid Panel, H GBA1C, Comp. Metabolic Panel - Chemistry albumin/creatinine ratio, urine 30 - 300 mg/g mg/g{creat} 0-29 cholesterol, serum 319 mg/dL 476-983 7120/08/21 triglyceride, serum, fasting 546 mg/dL 30-200 HDL cholesterol, serum 39 mg/dL 32-96 LDL cholesterol, serum 167.00 mg/dL 5.00-130.00 hemoglobin A1C, blood, as % of total hemoglobin 7.7 % 4.3-6.0 sodium, serum 138 mmol/L 609-006 1240/08/21 potassium, serum 4.3 mmol/L 3.5-5.2 chloride, serum 100 mmol/L 98-107 carbon dioxide, venous blood 33.2 mmol/L 21.0-32 .0 blood glucose 138 mg/dL 65-110 urea nitrogen, blood 13 mg/dL 7-18 creatinine, serum 1.40 mg/dL 0.60-1.30 alanine aminotransferase (SGPT), serum 54 U/L 12-78 aspartate aminotransferase (SGOT), serum 29 U/L 15-37 alkaline phosphatase, serum 55 U/L 50-136 calcium, serum 9.8 mg/dL 8.5-10.1 bilirubin, serum, total 0.20 mg/dL 0.00-1.00 Lab Report: MICROALBUMIN, Lipid Panel, H GBA1C, Comp. Metabolic Panel - Lab microalbumin, urine 10 0-19 Encounters Code Encounter Date Provider Facility CPT-68840 Level 4 Est. Patient 14:15:19 CDT Baltazar Childers MD [facility] CPT-00518 Level 4 Est. Patient 12:20:13 CDT Baltazar Childers MD [facility] CPT-64595 Level 4 Est. 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 Patient 14:18:34 NURSE CASE MANAGER Baltazar Childers MD [facility] CPT-26894 Level 4 Est. Patient 15:18:29 CDT Baltazar Childers MD [facility] CPT-39518 Level 3 Est. Patient 12:45:34 CDT Baltazar Childers MD [facility] CPT-10004 Level 3 Est. Patient 10:10:11 CDT Baltazar Childers MD [facility] CPT-70692 Level 3 Est. Patient 14:07:50 CDT Baltazar Childers MD [facility] CPT-57557 Level 4 Est. Patient 12:26:10 NURSE CASE MANAGER Baltazar Childers MD [facility] CPT-34872 Level 4 Est. Patient 14:45:38 CDT Baltazar Childers MD [facility] CPT-96479 Level 4 New Patient 12:30:48 CDT Baltazar hinton MD [facility] Procedures Code Procedure Name Date Entry Date Standard Desc ription CPT-96241 Venipuncture Draw Fee 12:10:27 NURSE CASE MANAGER CPT-79893 Fluzone Quadrivalent Intramuscular Suspe nsion 0.5 ML 10:49:13 CDT CPT-89392 First Vx Component - Ix admi n via ID IM or jet inj without physician counseling 15:17:19 NURSE CASE MANAGER CPT-37566 Pneumovax 23 15:17:19 NURSE CASE MANAGER CPT-40901 Pneumovax 14:52:45 NURSE CASE MANAGER CPT-32804 Venipuncture Draw Fee 14:06:30 NURSE CASE MANAGER CPT-000 Give Appropriate Flu Vaccine 14:18:34 NURSE CASE MANAGER 2 CPT-93324 Administration single or combination vac cine inc oral 14:46:00 NURSE CASE MANAGER CPT-74016 Influenza split virus > age 3 14:46:00 NURSE CASE MANAGER CPT-OV Office Visit 19:13:16 CDT CPT-06380 Zostavax 18:41:56 CDT CPT-60139 Administration single or combination vac cine inc oral 12:56:39 CDT CPT-89542 Zoster Vaccine (Zostavax) 12:56:39 CDT 2012 CPT-82928 Venipuncture Draw Fee 10:58:57 CDT CPT-38874 Sono pelvis non OB uterus ovaries cervix 17:45:04 CDT CPT-80119 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
--- OUTSIDE RECORDS SUMMARY | 2019-10-27 12:02 | XMS REPORT | Clinical Summary ---
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 Benign neoplasm of colon PERIPHERAL NEUROPATHY 356.9 [...] ronary atherosclerosis of unspecified type of vessel, cabazon or graft OTH NONSPC ABN FINDNG RAD&OTH [...] Active Baltazar Nickerson MD Chronic pain syndrome COLON POLYPS ICD-211.3 Inactive Lolis Thomas APR N Medication List Medication Instructions Start Date Stop Date Generic Name NDC Status Provider Patient Instruction ONETOUCH ULTRA BLUE STRP Test twice a day GLUCO SE BLOOD 95054278016 No Longer Active Baltazar Childers MD Active TRUEPLUS LANCETS 33G MISC Test twice a day LANCET S 19227507740 Active Baltazar Childers MD Active TRUEDRAW LANCING DEVICE MISC Test twice a day L ANCET DEVICES 37288801123 Active Baltazar Childers MD Active TRUETRACK TEST STRP Test twice a day GLUCOSE BLOO D 30388947930 Active Baltazar Childers MD Active TRUETRACK BLOOD GLUCOSE W/DEVICE KIT Test twice a day BLOOD GLUCOSE MONITORING SUPPL 18738033940 Active Baltazar Childers MD Activ e HYDROCODONE-ACETAMINOPHEN 7.5-325 MG TABS Take 1 tab every 6-8 hour s PRN HYDROCODONE-ACETAMINOPHEN 85653109103 Active Gato Rae MD Active NORTRIPTYLINE HCL 50 MG CAPS 1 every night for neuropathy 4 NORTRIPTYLINE HCL 84310307178 Active Baltazar Childers MD Acti ve GABAPENTIN 300 MG CAPS 1 three times a day GABAPE NTIN 02950728136 Active Baltazar Childers MD Active GABAPENTIN 300 MG CAPS 1 po qd x 2 days, then 1 po BID x 2 d ays, then 1 po TID GABAPENTIN 22107417246 No Longer Active Baltazar silverman MD Active TRAMADOL HCL 50 MG TABS 1 twice a day as needed for pain TRAMADOL HCL 04593625670 Active Baltazar Childers MD Active NAPROXEN 500 MG TABS 1 tablet by mouth twice daily NAPROXEN 76395742786 No Longer Active Baltazar Childers MD Active PROAIR HFA 108 (90 BASE) MCG/ACT AERS 2 puffs four times a d ay as needed ALBUTEROL SULFATE 48833911538 Active Baltazar Childers MD Active DEPO-TESTOSTERONE 200 MG/ML OIL as directed RUFINO TOSTERONE CYPIONATE 42093773756 No Longer Active Baltazar Childers MD Active LIPITOR 20 MG TABS Take one by mouth daily in evening ATORVASTATIN CALCIUM 00673938575 No Longer Active Baltazar Childers MD Activ e CRESTOR 10 MG TABS 1 by mouth every day R OSUVASTATIN CALCIUM 69342925866 No Longer Active Baltazar Childers MD Activ e PHENTERMINE HCL 37.5 MG TABS Take one by mouth daily 2 PHENTERMINE HCL 29782742783 No Longer Active Baltazar Childers MD Activ e ROBAXIN-750 750 MG TABS Take one by mouth daily ME THOCARBAMOL 18899588275 Active Baltazar Childers MD Active TIZANIDINE HCL 4 MG TABS 1 daily as needed for muscle spasm 2011 TIZANIDINE HCL 14241976295 No Longer Active Dawna Salazar RN Active [id number]-[id number]-PSJMFRVA 50-325-40 MG TABS 1 four time s a day as needed for heacache [id number] 55555034787 Active Baltazar Childers MD Active SUMATRIPTAN SUCCINATE 100 MG TABS 1 tablet by mouth at onset of migraine as needed SUMATRIPTAN SUCCINATE 98763477949 Active Baltazar bynum MD Active LORATADINE 10 MG TABS Take one by mouth daily LORATADINE 77342635217 Active Baltazar Childers MD Active FUROSEMIDE 40 MG TABS Take one by mouth daily FUROSEMIDE 43977584723 Active Baltazar Childers MD Active LISINOPRIL 20 MG TABS Take one by mouth daily at bedtime LISINOPRIL 26698167021 Active Baltazar Childers MD Active OMEPRAZOLE 20 MG CPDR Take one by mouth daily OMEPRAZOLE 44263116324 Active Baltazar Childers MD Active HYDROXYZINE HCL 25 MG TABS Take one by mouth daily HYDROXYZINE HCL 52354793347 Active Baltazar Childers MD Active GLIPIZIDE 10 MG TABS 1 tablet by mouth twice daily GLIPIZIDE 25923866520 Active Baltazar Childers MD Active ALPRAZOLAM 1 MG TABS 1 tablet by mouth daily at bedtime for restles s leg ALPRAZOLAM 25412425359 Active Baltazar Childers MD Active METFORMIN HCL 1000 MG TABS Take one by mouth twice daily METFORMIN HCL 01115393349 Active Baltazar Childers MD Active TIZANIDINE HCL 4 MG TABS 1 daily as needed for muscle spasm 2011 TIZANIDINE HCL 4 MG TABS 989405 TIZANIDINE HCL Inactiv e PHENTERMINE HCL 37.5 MG TABS Take one by mouth daily 2 PHENTERMINE HCL 37.5 MG TABS 982902 PHENTERMINE HCL Inactive CRESTOR 10 MG TABS 1 by mouth every day C RESTOR 10 MG TABS ROSUVASTATIN CALCIUM Inactive LIPITOR 20 MG TABS Take one by mouth daily in evening LIPITOR 20 MG TABS 180075 ATORVASTATIN CALCIUM Inactive DEPO-TESTOSTERONE 200 MG/ML OIL as directed 8 DEPO-TESTOSTERONE 200 MG/ML OIL 983581 TESTOSTERONE CYPIONATE Inactive NAPROXEN 500 MG TABS 1 tablet by mouth twice daily 201 07/27/22 NAPROXEN 500 MG TABS 915958 NAPROXEN Inactive GABAPENTIN 300 MG CAPS 1 po qd x 2 days, then 1 po BID x 2 d ays, then 1 po TID GABAPENTIN 300 MG CAPS 838086 GABAPENTIN Inact amie ONETOUCH ULTRA BLUE STRP Test twice a day ONETOUCH ULTRA BLUE STRP GLUCOSE BLOOD Inactive Immunizations Vaccine Administration Date Value Standard Floyd cription pneumococcal immunization administered Pneumovax 23 [CVX33] pneumococcal polysaccharide vaccine, 23 valent Seasonal influenza vaccine, injectable, containing preservative, for > 3 years old (Afluria, FluLaval, Fluzone, Fluvirin, Fluarix, Agriflu(>= 18 yo)) Fluzone (>3 yrs.) [[id number]] Influenza, seasonal, inject able Seasonal influenza vaccine, injectable, containing preservative, for > 3 years old (Afluria, FluLaval, Fluzone, Fluvirin, Fluarix, Agriflu(>= 18 yo)) Fluzone (>3 yrs.) [[id number]] Influenza, seasonal, inject able Vital Signs Date Name Value Unit Range Description blood pressure, diastolic - 8462-4 80 mm[Hg] BP salmeron blood pressure, systolic - 8480-6 121 mm[Hg] BP sys pulse rate E&M - 8867-4 102 /min H eart rate temperature E&M 98.1 [degF] Body temp erature weight E&M - 3141-9 226 [lb_av] Weigh t Measured blood pressure, diastolic - 8462-4 68 mm[Hg] [...] - Chem istry sodium, serum 140 mmol/L 694-188 7581/05/05 potassium, serum 4.9 mmol/L 3.5-5.2 chloride, serum 99 mmol/L 98-107 carbon dioxide, venous blood 34.3 mmol/L 21.0-32 .0 blood glucose 132 mg/dL 65-110 calcium, serum 10.1 mg/dL 8.5-10.1 urea nitrogen, blood 23 mg/dL 7-18 creatinine, serum 2.00 mg/dL 0.60-1.30 Lab Report: CBC - Hematology leukocyte count, [...] Panel - Chemistry sodium, serum 139 mmol/L 581-378 0293/01/20 potassium, serum 5.3 mmol/L 3.5-5.2 chloride, serum [...] count 262 10^3/MM^3 10*3/mm3 142-424 Lab Report: HGBA1C - Chemistry hemoglobin A1C, blood, as % of total hemoglobin 7.3 % 4.3-6.0 Lab Report: MICROALBUMIN, Lipid Panel, H GBA1C, Comp. Metabolic Panel - Chemistry albumin/creatinine ratio, urine 30 - 300 mg/g mg/g{creat} 0-29 cholesterol, serum 319 mg/dL 856-948 3010/08/21 triglyceride, serum, fasting 546 mg/dL 30-200 HDL cholesterol, serum 39 mg/dL 32-96 LDL cholesterol, serum 167.00 mg/dL 5.00-130.00 hemoglobin A1C, blood, as % of total hemoglobin 7.7 % 4.3-6.0 sodium, serum 138 mmol/L 118-731 5347/08/21 potassium, serum 4.3 mmol/L 3.5-5.2 chloride, serum [...] 0-19 Encounters Code Encounter Date Provider Facility CPT-55149 Level 4 Est. Patient 11:29:55 CDT Baltazar Childers MD [facility] CPT-17425 Level 4 Est. Patient 14:15:19 CDT Baltazar Childers MD [facility] CPT-96020 Level 4 Est. Patient 12:20:13 CDT Baltazar Childers MD [facility] CPT-09801 Level 4 Est. Patient 14:52:45 BLOOD DONOR RECRUITER Baltazar Childers MD [facility] CPT-49973 Level 4 Est. Patient 14:18:34 BLOOD DONOR RECRUITER Baltazar Childers MD [facility] CPT-83210 Level 4 Est. Patient 15:18:29 CDT Baltazar Childers MD [facility] CPT-05800 Level 3 Est. Patient 12:45:34 CDT Baltazar Childers MD [facility] CPT-95493 Level 3 Est. Patient 10:10:11 CDT Baltazar Childers MD [facility] CPT-66490 Level 3 Est. Patient 14:07:50 CDT Baltazar Childers MD [facility] CPT-65705 Level 4 Est. Patient 12:26:10 BLOOD DONOR RECRUITER Baltazar Childers MD [facility] CPT-23022 Level 4 Est. Patient 14:45:38 CDT Baltazar Childers MD [facility] CPT-44487 Level 4 New Patient 12:30:48 CDT Baltazar hinton MD [facility] Procedures Code Procedure Name Date Entry Date Standard Desc ription CPT-03370 Venipuncture Draw Fee 12:10:27 BLOOD DONOR RECRUITER CPT-09648 Fluzone Quadrivalent Intramuscular Suspe nsion 0.5 ML 10:49:13 CDT CPT-13122 First Vx Component - Ix admi n via ID IM or jet inj without physician counseling 15:17:19 BLOOD DONOR RECRUITER CPT-62042 Pneumovax 15:17:19 BLOOD DONOR RECRUITER CPT-46124 Pneumovax 14:52:45 BLOOD DONOR RECRUITER CPT-93249 Venipuncture Draw Fee 14:06:30 BLOOD DONOR RECRUITER CPT-000 Give Appropriate Flu Vaccine 14:18:34 BLOOD DONOR RECRUITER 2 CPT-70822 Administration single or combination vac cine inc oral 14:46:00 BLOOD DONOR RECRUITER CPT-01630 Influenza split virus > age 3 14:46:00 BLOOD DONOR RECRUITER CPT-OV Office Visit 19:13:16 CDT CPT-94034 Zostavax 18:41:56 CDT CPT-71796 Administration single or combination vac cine inc oral 12:56:39 CDT CPT-53696 Zoster Vaccine (Zostavax) 12:56:39 CDT 2012 CPT-47827 Venipuncture Draw Fee 10:58:57 CDT CPT-97970 Sono pelvis non OB uterus ovaries cervix 17:45:04 CDT CPT-97066 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
--- OUTSIDE RECORDS SUMMARY | 2019-10-27 12:02 | XMS REPORT | Clinical Summary ---
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 Benign neoplasm of colon PERIPHERAL NEUROPATHY 356.9 [...] ronary atherosclerosis of unspecified type of vessel, mi'kmaq or graft OTH NONSPC ABN FINDNG RAD&OTH [...] pain syndrome COLON POLYPS ICD-211.3 Inactive Lolis Barron Medication List Medication Instructions Start Date Stop Date Generic Name NDC Status Provider Patient Instruction TRUEPLUS LANCETS 33G MISC Test twice a day LANCET S 25031554329 Active Baltazar Childers MD Active TRUEDRAW LANCING DEVICE MISC Test twice a day L ANCET DEVICES 53005859198 Active Baltazar Childers MD Active TRUETRACK TEST STRP Test twice a day GLUCOSE BLOO D 53417291819 Active Baltazar Childers MD Active TRUETRACK BLOOD GLUCOSE W/DEVICE KIT Test twice a day BLOOD GLUCOSE MONITORING SUPPL 10401320731 Active Bella Suarez INSULATION ESTIMATOR Active HYDROCODONE-ACETAMINOPHEN 7.5-325 MG TABS Take 1 tab every 6-8 hour s PRN HYDROCODONE-ACETAMINOPHEN 26644624149 Active Baltazar Childers MD Active NORTRIPTYLINE HCL 50 MG CAPS 1 every night for neuropathy 4 NORTRIPTYLINE HCL 44228730137 Active Baltazar Childers MD Acti ve GABAPENTIN 300 MG CAPS 1 three times a day GABAPE NTIN 28643844487 Active Baltazar Childers MD Active GABAPENTIN 300 MG CAPS 1 po qd x 2 days, then 1 po BID x 2 d ays, then 1 po TID GABAPENTIN 60466197054 No Longer Active Baltazar silverman MD Active TRAMADOL HCL 50 MG TABS 1 twice a day as needed for pain TRAMADOL HCL 94261504653 Active Baltazar Childers MD Active NAPROXEN 500 MG TABS 1 tablet by mouth twice daily NAPROXEN 72072650870 No Longer Active Baltazar Childers MD Active PROAIR HFA 108 (90 BASE) MCG/ACT AERS 2 puffs four times a d ay as needed ALBUTEROL SULFATE 92404104788 Active Baltazar Childers MD Active DEPO-TESTOSTERONE 200 MG/ML OIL as directed RUFINO TOSTERONE CYPIONATE 75932090164 No Longer Active Baltazar Childers MD Active LIPITOR 20 MG TABS Take one by mouth daily in evening ATORVASTATIN CALCIUM 02263769144 No Longer Active Baltazar Childers MD Activ e CRESTOR 10 MG TABS 1 by mouth every day R OSUVASTATIN CALCIUM 30996810511 No Longer Active Baltazar Childers MD Activ e PHENTERMINE HCL 37.5 MG TABS Take one by mouth daily 2 PHENTERMINE HCL 87708003589 No Longer Active Baltazar Childers MD Activ e ROBAXIN-750 750 MG TABS Take one by mouth daily ME THOCARBAMOL 73300713263 Active Baltazar Childers MD Active TIZANIDINE HCL 4 MG TABS 1 daily as needed for muscle spasm 2011 TIZANIDINE HCL 66825590584 No Longer Active Dawna Salazar RN Active ONETOUCH ULTRA BLUE STRP Test twice a day GLUCO SE BLOOD 81665095380 Active Baltazar Childers MD Active [id number] 50-325-40 MG TABS 1 four time s a day as needed for heacache [id number] 00210336119 Active Baltazar Childers MD Active SUMATRIPTAN SUCCINATE 100 MG TABS 1 tablet by mouth at onset of migraine as needed SUMATRIPTAN SUCCINATE 99240318003 Active Baltazar barron MD Active LORATADINE 10 MG TABS Take one by mouth daily LORATADINE 67246631870 Active Baltazar Childers MD Active FUROSEMIDE 40 MG TABS Take one by mouth daily FUROSEMIDE 26795964286 Active Baltazar Childers MD Active LISINOPRIL 20 MG TABS Take one by mouth daily at bedtime LISINOPRIL 49596434906 Active Baltazar Childers MD Active OMEPRAZOLE 20 MG CPDR Take one by mouth daily OMEPRAZOLE 61676428571 Active Baltazar Childers MD Active HYDROXYZINE HCL 25 MG TABS Take one by mouth daily HYDROXYZINE HCL 69109711764 Active Baltazar Childers MD Active GLIPIZIDE 10 MG TABS 1 tablet by mouth twice daily GLIPIZIDE 88419222648 Active Baltazar Childers MD Active ALPRAZOLAM 1 MG TABS 1 tablet by mouth daily at bedtime for restles s leg ALPRAZOLAM 60763842858 Active Baltazar Childers MD Active METFORMIN HCL 1000 MG TABS Take one by mouth twice daily METFORMIN HCL 59759274343 Active Baltazar Childers MD Active TIZANIDINE HCL 4 MG TABS 1 daily as needed for muscle spasm 2011 TIZANIDINE HCL 4 MG TABS 895453 TIZANIDINE HCL Inactiv e PHENTERMINE HCL 37.5 MG TABS Take one by mouth daily 2 PHENTERMINE HCL 37.5 MG TABS 848646 PHENTERMINE HCL Inactive CRESTOR 10 MG TABS 1 by mouth every day C RESTOR 10 MG TABS ROSUVASTATIN CALCIUM Inactive LIPITOR 20 MG TABS Take one by mouth daily in evening LIPITOR 20 MG TABS 808516 ATORVASTATIN CALCIUM Inactive DEPO-TESTOSTERONE 200 MG/ML OIL as directed 8 DEPO-TESTOSTERONE 200 MG/ML OIL 734966 TESTOSTERONE CYPIONATE Inactive NAPROXEN 500 MG TABS 1 tablet by mouth twice daily 201 07/27/22 NAPROXEN 500 MG TABS 638956 NAPROXEN Inactive GABAPENTIN 300 MG CAPS 1 po qd x 2 days, then 1 po BID x 2 d ays, then 1 po TID GABAPENTIN 300 MG CAPS 044645 GABAPENTIN Inact amie Immunizations Vaccine Administration Date Value Standard Floyd cription pneumococcal immunization administered Pneumovax 23 [CVX33] pneumococcal polysaccharide vaccine, 23 valent Seasonal influenza vaccine, injectable, containing preservative, for > 3 years old (Afluria, FluLaval, Fluzone, Fluvirin, Fluarix, Agriflu(>= 18 yo)) Fluzone (>3 yrs.) [OUP923] Influenza, seasonal, inject able Seasonal influenza vaccine, injectable, containing preservative, for > 3 years old (Afluria, FluLaval, Fluzone, Fluvirin, Fluarix, Agriflu(>= 18 yo)) Fluzone (>3 yrs.) [VZS028] Influenza, seasonal, inject able Vital Signs Date [...] - Chem istry sodium, serum 140 mmol/L 364-361 8024/05/05 potassium, serum 4.9 mmol/L 3.5-5.2 chloride, serum [...] Panel - Chemistry sodium, serum 139 mmol/L 519-549 0020/01/20 potassium, serum 5.3 mmol/L 3.5-5.2 chloride, serum [...] mg/g mg/g{creat} 0-29 cholesterol, serum 319 mg/dL 140-703 9393/08/21 triglyceride, serum, fasting 546 mg/dL 30-200 HDL cholesterol, serum 39 mg/dL 32-96 LDL cholesterol, serum 167.00 mg/dL 5.00-130.00 hemoglobin A1C, blood, as % of total hemoglobin 7.7 % 4.3-6.0 sodium, serum 138 mmol/L 971-036 4323/08/21 potassium, serum 4.3 mmol/L 3.5-5.2 chloride, serum [...] 0-19 Encounters Code Encounter Date Provider Facility CPT-67848 Level 4 Est. Patient 11:29:55 CDT Baltazar Childers MD [facility] CPT-39136 Level 4 Est. Patient 14:15:19 CDT Baltazar Childers MD [facility] CPT-15240 Level 4 Est. Patient 12:20:13 CDT Baltazar Childers MD [facility] CPT-65995 Level 4 Est. Patient 14:52:45 [employer] Baltazar Childers MD [facility] CPT-60887 Level 4 Est. Patient 14:18:34 [employer] Baltazar Childers MD [facility] CPT-22688 Level 4 Est. Patient 15:18:29 CDT Baltazar Childers MD [facility] CPT-71190 Level 3 Est. Patient 12:45:34 CDT Baltazar Childers MD [facility] CPT-12746 Level 3 Est. Patient 10:10:11 CDT Baltazar Childers MD [facility] CPT-87651 Level 3 Est. Patient 14:07:50 CDT Baltazar Childers MD [facility] CPT-28750 Level 4 Est. Patient 12:26:10 [employer] Baltazar Childers MD [facility] CPT-34755 Level 4 Est. Patient 14:45:38 CDT Baltazar Childers MD [facility] CPT-54837 Level 4 New Patient 12:30:48 CDT Baltazar hinton MD [facility] Procedures Code Procedure Name Date Entry Date Standard Desc ription CPT-33326 Venipuncture Draw Fee 12:10:27 [employer] CPT-20820 Fluzone Quadrivalent Intramuscular Suspe nsion 0.5 ML 10:49:13 CDT CPT-08339 First Vx Component - Ix admi n via ID IM or jet inj without physician counseling 15:17:19 [employer] CPT-01460 Pneumovax 15:17:19 [employer] CPT-30165 Pneumovax 14:52:45 [employer]ANT CPT-28554 Venipuncture Draw Fee 14:06:30 [employer] CPT-000 Give Appropriate Flu Vaccine 14:18:34 [employer] CONSULTANT 2 CPT-59603 Administration single or combination vac cine inc oral 14:46:00 [employer] CONSULTANT CPT-37823 Influenza split virus > age 3 14:46:00 [employer]SULTANT CPT-OV Office Visit 19:13:16 CDT CPT-99141 Zostavax 18:41:56 CDT CPT-62309 Administration single or combination vac cine inc oral 12:56:39 CDT CPT-20341 Zoster Vaccine (Zostavax) 12:56:39 CDT 2012 CPT-15559 Venipuncture Draw Fee 10:58:57 CDT CPT-43873 Sono pelvis non OB uterus ovaries cervix 17:45:04 CDT CPT-35164 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
--- OUTSIDE RECORDS SUMMARY | 2019-10-27 12:02 | XMS REPORT | Clinical Summary ---
Author Author Admin, Elba Lance [employer] [facility] Address Unknown Phone Unavailable Allergies, Adverse Reactions, 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 [employer] Benign neoplasm of colon PERIPHERAL NEUROPATHY 356.9 [...] ronary atherosclerosis of unspecified type of vessel, bill moore's slough or graft OTH NONSPC ABN FINDNG RAD&OTH [...] Unspecified hypothyroidism COLON POLYPS ICD-211.3 Inactive Lolis Thomas APR N Medication List Medication Instructions Start Date Stop Date Generic Name NDC Status Provider Patient Instruction SYNTHROID 0.1 MG TAB 1 tablet by mouth daily LE VOTHYROXINE SODIUM 78002327947 Active Carina Tucker LPN Active GLIPIZIDE 10 MG TAB take 2 tablets twice daily GLIPIZIDE 66621959200 Active Carina Tucker LPN Active SUCRALFATE 1 GM TABS 1 four times a day to coat the stomach 2015 SUCRALFATE 74369719917 No Longer Active Baltazar Childers MD Active PEN NEEDLES 31G X 6 MM MISC use 1 daily INSULIN PEN NEEDLE 58060584491 Active Bella Suarez [employer] Active TOURINKUO SOLOSTAR 300 UNIT/ML SC SOPN 10 units SC daily INSULIN GLARGINE 82713384616 No Longer Active Martita Godinez KENDALL Active LANTUS SOLOSTAR 100 UNIT/ML SC SOPN 10 units SC daily INSULIN GLARGINE 27323121250 Active Baltazar Childers MD Active NAPROXEN SODIUM 220 MG ORAL TABS 1 three times a day as needed 2 NAPROXEN SODIUM 94994061510 No Longer Active Baltazar Childers MD Active ATORVASTATIN CALCIUM 20 MG ORAL TABS Take 1 tab daily ATORVASTATIN CALCIUM 35449106292 Active Baltazar Childers MD Active FUROSEMIDE 40 MG TABS Take one by mouth daily FUROSEMIDE 97232086985 Active Baltazar Childers MD Active LISINOPRIL 20 MG TABS Take one by mouth daily at bedtime LISINOPRIL 90960097216 Active KENDALL Juarez Active ONETOUCH ULTRA BLUE STRP Test twice a day GLUCO SE BLOOD 54854848477 No Longer Active Baltazar Childers MD Active TRUEPLUS LANCETS 33G MISC Test twice a day LANCET S 14544922082 Active KENDALL Juarez Active TRUEDRAW LANCING DEVICE MISC Test twice a day L ANCET DEVICES 08317693394 Active Baltazar Childers MD Active TRUETRACK TEST STRP Test twice a day GLUCOSE BLOO D 33268652789 Active KENDALL Juarez Active TRUETRACK BLOOD GLUCOSE W/DEVICE KIT Test twice a day BLOOD GLUCOSE MONITORING SUPPL 44972160726 Active Baltazar Childers MD Activ e HYDROCODONE-ACETAMINOPHEN 7.5-325 MG TABS Take 1 tab every 6-8 hour s PRN HYDROCODONE-ACETAMINOPHEN 42418879032 Active Shonna Parker APRN Active NORTRIPTYLINE HCL 50 MG CAPS 1 every night for neuropathy 4 NORTRIPTYLINE HCL 85688197403 Active Baltazar Childers MD Acti ve GABAPENTIN 300 MG CAPS 1 three times a day GABAPE NTIN 54014617955 Active KENDALL Juarez Active GABAPENTIN 300 MG CAPS 1 po qd x 2 days, then 1 po BID x 2 d ays, then 1 po TID GABAPENTIN 09053730107 No Longer Active Baltazar silverman MD Active TRAMADOL HCL 50 MG TABS 1 twice a day as needed for pain TRAMADOL HCL 76867822416 Active Shonna Parker APRN Active NAPROXEN 500 MG TABS 1 tablet by mouth twice daily NAPROXEN 58156603499 No Longer Active Baltazar Childers MD Active PROAIR HFA 108 (90 BASE) MCG/ACT AERS 2 puffs four times a d ay as needed ALBUTEROL SULFATE 79712371338 Active KENDALL Juarez Active DEPO-TESTOSTERONE 200 MG/ML OIL as directed RUFINO TOSTERONE CYPIONATE 84100704965 No Longer Active Baltazar Childers MD Active LIPITOR 20 MG TABS Take one by mouth daily in evening ATORVASTATIN CALCIUM 11417286097 No Longer Active Baltazar Childers MD Activ e CRESTOR 10 MG TABS 1 by mouth every day R OSUVASTATIN CALCIUM 49658269150 No Longer Active Baltazar Childers MD Activ e PHENTERMINE HCL 37.5 MG TABS Take one by mouth daily 2 PHENTERMINE HCL 27732414369 No Longer Active Baltazar Childers MD Activ e ROBAXIN-750 750 MG TABS Take one by mouth daily ME THOCARBAMOL 79355179692 Active Baltazar Childers MD Active TIZANIDINE HCL 4 MG TABS 1 daily as needed for muscle spasm 2011 TIZANIDINE HCL 19749987710 No Longer Active Dawna Salazar RN Active [id number] 50-325-40 MG TABS 1 four time s a day as needed for heacache [id number] 95527427982 Active Shonna Parker APRN Active SUMATRIPTAN SUCCINATE 100 MG TABS 1 tablet by mouth at onset of migraine as needed SUMATRIPTAN SUCCINATE 58946290265 Active Shonna Lucianodian er [employer] Active LORATADINE 10 MG TABS Take one by mouth daily LORATADINE 12616893550 Active Baltazar Childers MD Active OMEPRAZOLE 20 MG CPDR Take one by mouth daily OMEPRAZOLE 02902414798 Active KENDALL Juarez Active HYDROXYZINE HCL 25 MG TABS Take one by mouth daily HYDROXYZINE HCL 27805556262 Active Baltazar Childers MD Active ALPRAZOLAM 1 MG TABS 1 tablet by mouth daily at bedtime for restles s leg ALPRAZOLAM 40220749569 Active Baltazar Childers MD Active METFORMIN HCL 1000 MG TABS Take one by mouth twice daily METFORMIN HCL 76674077168 Active Baltazar Childers MD Active TIZANIDINE HCL 4 MG TABS 1 daily as needed for muscle spasm 2011 TIZANIDINE HCL 4 MG TABS 039097 TIZANIDINE HCL Inactiv e PHENTERMINE HCL 37.5 MG TABS Take one by mouth daily 2 PHENTERMINE HCL 37.5 MG TABS 154841 PHENTERMINE HCL Inactive CRESTOR 10 MG TABS 1 by mouth every day C RESTOR 10 MG TABS 352666 ROSUVASTATIN CALCIUM Inactive LIPITOR 20 MG TABS Take one by mouth daily in evening LIPITOR 20 MG TABS 051577 ATORVASTATIN CALCIUM Inactive DEPO-TESTOSTERONE 200 MG/ML OIL as directed 8 DEPO-TESTOSTERONE 200 MG/ML OIL 037037 TESTOSTERONE CYPIONATE Inactive NAPROXEN 500 MG TABS 1 tablet by mouth twice daily 201 07/27/22 NAPROXEN 500 MG TABS 785096 NAPROXEN Inactive GABAPENTIN 300 MG CAPS 1 po qd x 2 days, then 1 po BID x 2 d ays, then 1 po TID GABAPENTIN 300 MG CAPS 388756 GABAPENTIN Inact amie ONETOUCH ULTRA BLUE STRP Test twice a day ONETOUCH ULTRA BLUE STRP GLUCOSE BLOOD Inactive NAPROXEN SODIUM 220 MG ORAL TABS 1 three times a day as needed 2 NAPROXEN SODIUM 220 MG ORAL TABS 496196 NAPROXEN SODIUM Inactive TOUJEO SOLOSTAR 300 UNIT/ML SC SOPN 10 units SC daily TOUJEO SOLOSTAR 300 UNIT/ML SC SOPN INSULIN GLARGINE Inac tive SUCRALFATE 1 GM TABS 1 four times a day to coat the stomach 2015 SUCRALFATE 1 GM TABS 310175 SUCRALFATE Inactive Immunizations Vaccine Administration Date Value Standard Floyd cription pneumococcal immunization administered Pneumovax 23 [CVX33] pneumococcal polysaccharide vaccine, 23 valent Seasonal influenza vaccine, injectable, containing preservative, for > 3 years old (Afluria, FluLaval, Fluzone, Fluvirin, Fluarix, Agriflu(>= 18 yo)) Fluzone (>3 yrs.) [[id number]] Influenza, seasonal, inject able Seasonal influenza vaccine, injectable, containing preservative, for > 3 years old (Afluria, FluLaval, Fluzone, Fluvirin, Fluarix, Agriflu(>= 18 yo)) Fluzone (>3 yrs.) [[id number]] Influenza, seasonal, inject able Vital Signs Date Name Value Unit Range Description blood pressure, diastolic - 8462-4 48 mm[Hg] BP [place] blood pressure, systolic - 8480-6 95 mm[Hg] BP sys pulse rate E&M - 8867-4 72 /min H eart rate temperature E&M 97.9 [degF] Body temp erature weight E&M - 3141-9 239 [lb_av] Weigh t Measured blood pressure, diastolic - 8462-4 81 mm[Hg] BP [place] blood pressure, systolic - 8480-6 139 mm[Hg] BP sys pulse rate E&M - 8867-4 97 /min H eart rate temperature E&M 98 [degF] Body temp erature weight E&M - 3141-9 234.5 [lb_av] Weigh t Measured blood pressure, diastolic - 8462-4 76 mm[Hg] BP [place] blood pressure, systolic - 8480-6 124 mm[Hg] BP sys pulse rate E&M - 8867-4 100 /min H eart rate temperature E&M 97.8 [degF] Body temp erature weight E&M - 3141-9 240.0 [lb_av] Weigh t Measured blood pressure, diastolic - 8462-4 81 mm[Hg] BP [place] blood pressure, systolic - 8480-6 132 mm[Hg] BP sys pulse rate E&M - 8867-4 88 /min H eart rate temperature E&M 97.2 [degF] Body temp erature weight E&M - 3141-9 243.5 [lb_av] Weigh t Measured blood pressure, diastolic - 8462-4 78 mm[Hg] BP [place] blood pressure, systolic - 8480-6 124 mm[Hg] BP sys pulse rate E&M - 8867-4 99 /min H eart rate temperature E&M 98.1 [degF] Body temp erature weight E&M - 3141-9 243.5 [lb_av] Weigh t Measured blood pressure, diastolic - 8462-4 74 mm[Hg] BP [place] blood pressure, systolic - 8480-6 114 mm[Hg] BP sys pulse rate E&M - 8867-4 76 /min H eart rate temperature E&M 97.4 [degF] Body temp erature weight E&M - 3141-9 228.4 [lb_av] Weigh t Measured Diagnostic Results Date Name Value Unit Range Description Lab Report: Basic Metabolic Panel, HGBA1 C - Chemistry calcium, serum 9.8 mg/dL 8.5-10.1 urea nitrogen, blood 14 mg/dL 7-18 creatinine, serum 1.89 mg/dL 0.55-1.30 hemoglobin A1C, blood, as % of total hemoglobin 8.3 % 4.3-6.0 blood glucose 209 mg/dL 65-110 carbon dioxide, venous blood 33.8 mmol/L 21.0-32 .0 chloride, serum 99 mmol/L 98-107 potassium, serum 4.5 mmol/L 3.5-5.2 sodium, serum 139 mmol/L 136-145 Lab Report: CBC - Hematology leukocyte count, blood 8.0 10^3/MM^3 10*3/mm3 4.6-10.2 mean corpuscular hemoglobin concentration, RBC 33.4 G/DL % 31.8-35.4 red blood cell distribution width 16.2 % 11 .6-14.8 platelet count 345 10^3/MM^3 10*3/mm3 824-982 6194/08/08 erythrocyte (RBC) count 3.75 10^6/MM^3 10*6/mm3 4.04-5.4 8 hemoglobin, blood 12.2 g/dL 12.0-16.0 hematocrit, blood 36.5 % 36.0-46.0 mean corpuscular volume, RBC 97 fL 80-97 mean corpuscular hemoglobin, RBC 32.5 pg 27. 0-31.2 Lab Report: Comp. Metabolic Panel, Lipid Panel - Chemistry urea nitrogen, blood 18 mg/dL 7-18 creatinine, serum 1.79 mg/dL 0.55-1.30 alanine aminotransferase (SGPT), serum 34 U/L 12-78 aspartate aminotransferase (SGOT), serum 26 U/L 15-37 calcium, serum 8.9 mg/dL 8.5-10.1 bilirubin, serum, total 0.30 mg/dL 0.00-1.00 cholesterol, serum 214 mg/dL 595-720 6759/12/19 triglyceride, serum, fasting 351 mg/dL 30-200 HDL cholesterol, serum 52 mg/dL 32-96 LDL cholesterol, serum 92 mg/dL 0-130 sodium, serum 143 mmol/L 867-825 1443/12/19 carbon dioxide, venous blood 32.5 mmol/L 21.0-32 .0 potassium, serum 4.9 mmol/L 3.5-5.2 chloride, serum 101 mmol/L 98-107 blood glucose 129 mg/dL 65-110 Lab Report: HEMOGLOBIN A1c, MicroAlb Ran dom w/creat/6517, Urinalysis, Co ... - Urinalysis microalbumin/total urine volume 9 mg/L Units converted. See lab report for original value. microalbumin/creatinine ratio, urine 24 MCG/MG CREAT mg/L <30 Lab Report: HGBA1C - Chemistry hemoglobin A1C, blood, as % of total hemoglobin 7.3 % 4.3-6.0 Lab Report: Renal Panel - Chemistry sodium, serum 141 mmol/L 646-031 3006/08/08 urea nitrogen, blood 30 mg/dL 7-18 calcium, serum 9.8 mg/dL 8.5-10.1 potassium, serum 4.9 mmol/L 3.5-5.2 chloride, serum 101 mmol/L 98-107 carbon dioxide, venous blood 34.1 mmol/L 21.0-32 .0 creatinine, serum 1.98 mg/dL 0.55-1.30 blood glucose 193 mg/dL 65-110 Encounters Code Encounter Date Provider Facility CPT-66898 Level 4 Est. Patient 15:44:38 CDT Shonna Parker APRN [facility] CPT-26350 Level 4 Est. Patient 11:34:17 CDT Baltazar Childers MD [facility] CPT-61069 Level 3 Est. Patient 16:40:40 CDT Baltazar Childers MD [facility]-12028 Level 4 Est. Patient 10:41:24 CDT Baltazar Childers MD [facility]-20147 Level 4 Est. Patient 16:01:48 CDT Baltazar Childers MD [facility]-22935 Level 4 Est. Patient 16:54:07 AIR DRILL OPERATOR Baltazar Childers MD [facility]-16669 Level 4 Est. Patient 15:42:12 CDT Baltazar Childers MD [facility] CPT-67830 Level 4 Est. Patient 11:29:55 CDT Baltazar Childers MD [facility]-43823 Level 4 Est. Patient 14:15:19 CDT Baltazar Childers MD [facility]-48544 Level 4 Est. Patient 12:20:13 CDT Baltazar Childers MD [facility]-61929 Level 4 Est. Patient 14:52:45 AIR DRILL OPERATOR Baltzaar Childers MD [facility]-96009 Level 4 Est. Patient 14:18:34 AIR DRILL OPERATOR Baltazar Childers MD [facility]-25366 Level 4 Est. Patient 15:18:29 CDT Baltazar Childers MD [facility]-83639 Level 3 Est. Patient 12:45:34 CDT Baltazar Childers MD [facility]-08792 Level 3 Est. Patient 10:10:11 CDT Baltazar Childers MD [facility]-28382 Level 3 Est. Patient 14:07:50 CDT Baltazar Childers MD [facility]-81055 Level 4 Est. Patient 12:26:10 AIR DRILL OPERATOR Baltazar Childers MD [facility]-60613 Level 4 Est. Patient 14:45:38 CDT Baltazar Childers MD [facility] CPT-87043 Level 4 New Patient 12:30:48 CDT Baltazar hinton MD [facility] Procedures Code Procedure Name Date Entry Date Standard Desc ription CPT-00550 Lipid - LAB USE ONLY 17:39:15 AIR DRILL OPERATOR 9 CPT-51330 HGBA1C - LAB USE ONLY 17:39:15 AIR DRILL OPERATOR CPT-13844 CMP - LAB USE ONLY 17:39:14 AIR DRILL OPERATOR CPT-81021 Venipuncture Draw Fee 17:39:14 AIR DRILL OPERATOR CPT-49412 First Vx - Ix admin via ID I M or jet injects without counseling by physician 16:55:17 AIR DRILL OPERATOR CPT-40664 Fluzone Quadrivalent Intramuscular Suspe nsion 0.5 ML 16:55:17 AIR DRILL OPERATOR CPT-07412 Renal Panel - LAB USE ONLY 17:39:20 CDT 201 10/31/07 CPT-45767 CBC - LAB USE ONLY 17:39:20 CDT CPT-28000 Venipuncture Draw Fee 17:39:20 CDT CPT-14211 Venipuncture Draw Fee 14:33:30 CDT CPT-77995 Renal Panel - LAB USE ONLY 14:33:30 CDT 201 10/31/07 CPT-84477 CBC - LAB USE ONLY 14:33:29 CDT CPT-48053 Venipuncture Draw Fee 14:50:21 AIR DRILL OPERATOR CPT-05512 Immunization Single Admin 17:35:35 CDT 2014 CPT-51145 Fluzone Quadrivalent preservative free ( >=3yrs.) 17:35:35 CDT CPT-13198 Venipuncture Draw Fee 12:10:27 AIR DRILL OPERATOR CPT-86502 Fluzone Quadrivalent Intramuscular Suspe nsion 0.5 ML 10:49:13 CDT CPT-45949 First Vx Component - Ix admi n via ID IM or jet inj without physician counseling 15:17:19 AIR DRILL OPERATOR CPT-34955 Pneumovax 23 15:17:19 AIR DRILL OPERATOR CPT-83048 Pneumovax 14:52:45 AIR DRILL OPERATOR CPT-62642 Venipuncture Draw Fee 14:06:30 AIR DRILL OPERATOR CPT-000 Give Appropriate Flu Vaccine 14:18:34 AIR DRILL OPERATOR 2 CPT-38284 Administration single or combination vac cine inc oral 14:46:00 AIR DRILL OPERATOR CPT-92311 Influenza split virus > age 3 14:46:00 AIR DRILL OPERATOR CPT-OV Office Visit 19:13:16 CDT CPT-84197 Zostavax 18:41:56 CDT CPT-34339 Administration single or combination vac cine inc oral 12:56:39 CDT CPT-19015 Zoster Vaccine (Zostavax) 12:56:39 CDT 2012 CPT-93988 Venipuncture Draw Fee 10:58:57 CDT CPT-79688 Sono pelvis non OB uterus ovaries cervix 17:45:04 CDT CPT-38795 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
--- OUTSIDE RECORDS SUMMARY | 2019-10-27 12:03 | XMS REPORT | Clinical Summary ---
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 Benign neoplasm of colon PERIPHERAL NEUROPATHY 356.9 [...] ronary atherosclerosis of unspecified type of vessel, [place] or graft OTH NONSPC ABN FINDNG RAD&OTH [...] stage III 585.3 Active 201 10/25/03 Elba Kaemichael LINDSEYA Chronic kidney disease, Stage III (moder [...] Heartburn 787.1 Active Baltazar Childers MD Heartburn COLON POLYPS ICD-211.3 Inactive Lolis Thomas APR N Medication List Medication Instructions Start Date Stop Date Generic Name NDC Status Provider Patient Instruction SUCRALFATE 1 GM TABS 1 four times a day to coat the stomach SUCRALFATE 87724208619 Active Baltazar Childers MD Active PEN NEEDLES 31G X 6 MM MISC use 1 daily INSULIN PEN NEEDLE 04629913073 Active Martita Herbert RMA Active TOUJEO SOLOSTAR 300 UNIT/ML SC SOPN 10 units SC daily INSULIN GLARGINE 22438183424 No Longer Active Martita Herbert RMA Active LANTUS SOLOSTAR 100 UNIT/ML SC SOPN 10 units SC daily INSULIN GLARGINE 02882387978 Active KENDALL Juarez Active NAPROXEN SODIUM 220 MG ORAL TABS 1 three times a day as needed 2 NAPROXEN SODIUM 65138885461 No Longer Active Baltazar Childers MD Active ATORVASTATIN CALCIUM 20 MG ORAL TABS Take 1 tab daily ATORVASTATIN CALCIUM 91245957031 Active KENDALL Juarez Active FUROSEMIDE 40 MG TABS Take one by mouth daily FUROSEMIDE 33249990138 Active KENDALL Juarez Active LISINOPRIL 20 MG TABS Take one by mouth daily at bedtime LISINOPRIL 31014240907 Active Baltazar Childers MD Active ONETOUCH ULTRA BLUE STRP Test twice a day GLUCO SE BLOOD 77306602051 No Longer Active Baltazar Childers MD Active TRUEPLUS LANCETS 33G MISC Test twice a day LANCET S 95748039795 Active KENDALL Juarez Active TRUEDRAW LANCING DEVICE MISC Test twice a day L ANCET DEVICES 28800605213 Active Baltazar Childers MD Active TRUETRACK TEST STRP Test twice a day GLUCOSE BLOO D 69246635024 Active KENDALL Juarez Active TRUETRACK BLOOD GLUCOSE W/DEVICE KIT Test twice a day BLOOD GLUCOSE MONITORING SUPPL 99606386692 Active Baltazar Childers MD Activ e HYDROCODONE-ACETAMINOPHEN 7.5-325 MG TABS Take 1 tab every 6-8 hour s PRN HYDROCODONE-ACETAMINOPHEN 69390434968 Active Baltazar Childers MD Active NORTRIPTYLINE HCL 50 MG CAPS 1 every night for neuropathy 4 NORTRIPTYLINE HCL 74218806196 Active KENDALL Juarez Acti ve GABAPENTIN 300 MG CAPS 1 three times a day GABAPE NTIN 07230179781 Active Baltazar Childers MD Active GABAPENTIN 300 MG CAPS 1 po qd x 2 days, then 1 po BID x 2 d ays, then 1 po TID GABAPENTIN 89867888681 No Longer Active Baltazar silverman MD Active TRAMADOL HCL 50 MG TABS 1 twice a day as needed for pain TRAMADOL HCL 49038165463 Active Baltazar Childers MD Active NAPROXEN 500 MG TABS 1 tablet by mouth twice daily NAPROXEN 71857988471 No Longer Active Baltazar Chidlers MD Active PROAIR HFA 108 (90 BASE) MCG/ACT AERS 2 puffs four times a d ay as needed ALBUTEROL SULFATE 68171429351 Active Baltazar Childers MD Active DEPO-TESTOSTERONE 200 MG/ML OIL as directed RUFINO TOSTERONE CYPIONATE 82560768518 No Longer Active Baltazar Childers MD Active LIPITOR 20 MG TABS Take one by mouth daily in evening ATORVASTATIN CALCIUM 66083602780 No Longer Active Baltazar Childers MD Activ e CRESTOR 10 MG TABS 1 by mouth every day R OSUVASTATIN CALCIUM 54126619127 No Longer Active Baltazar Childers MD Activ e PHENTERMINE HCL 37.5 MG TABS Take one by mouth daily 2 PHENTERMINE HCL 64606861498 No Longer Active Baltazar Childers MD Activ e ROBAXIN-750 750 MG TABS Take one by mouth daily ME THOCARBAMOL 46364810530 Active Baltazar Childers MD Active TIZANIDINE HCL 4 MG TABS 1 daily as needed for muscle spasm 2011 TIZANIDINE HCL 31722980797 No Longer Active Dawna Salazar RN Active [id number]-[id number] 50-325-40 MG TABS 1 four time s a day as needed for heacache [id number] 34377245397 Active Baltazar Childers MD Active SUMATRIPTAN SUCCINATE 100 MG TABS 1 tablet by mouth at onset of migraine as needed SUMATRIPTAN SUCCINATE 52790205769 Active Bella STEPHEN RN Active LORATADINE 10 MG TABS Take one by mouth daily LORATADINE 52948601996 Active Baltazar Childers MD Active OMEPRAZOLE 20 MG CPDR Take one by mouth daily OMEPRAZOLE 49055135156 Active [place] Lyons Active HYDROXYZINE HCL 25 MG TABS Take one by mouth daily HYDROXYZINE HCL 54641073877 Active Baltazar Childers MD Active GLIPIZIDE 10 MG TABS 1 tablet by mouth twice daily GLIPIZIDE 32773622974 Active KENDALL Juarez Active ALPRAZOLAM 1 MG TABS 1 tablet by mouth daily at bedtime for restles s leg ALPRAZOLAM 41217072577 Active Baltazar Childers MD Active METFORMIN HCL 1000 MG TABS Take one by mouth twice daily METFORMIN HCL 48194331521 Active Baltazar Childers MD Active TIZANIDINE HCL 4 MG TABS 1 daily as needed for muscle spasm 2011 TIZANIDINE HCL 4 MG TABS 326313 TIZANIDINE HCL Inactiv e PHENTERMINE HCL 37.5 MG TABS Take one by mouth daily 2 PHENTERMINE HCL 37.5 MG TABS 211890 PHENTERMINE HCL Inactive CRESTOR 10 MG TABS 1 by mouth every day C RESTOR 10 MG TABS 286197 ROSUVASTATIN CALCIUM Inactive LIPITOR 20 MG TABS Take one by mouth daily in evening LIPITOR 20 MG TABS 812936 ATORVASTATIN CALCIUM Inactive DEPO-TESTOSTERONE 200 MG/ML OIL as directed 8 DEPO-TESTOSTERONE 200 MG/ML OIL 685263 TESTOSTERONE CYPIONATE Inactive NAPROXEN 500 MG TABS 1 tablet by mouth twice daily 201 07/27/22 NAPROXEN 500 MG TABS 495974 NAPROXEN Inactive GABAPENTIN 300 MG CAPS 1 po qd x 2 days, then 1 po BID x 2 d ays, then 1 po TID GABAPENTIN 300 MG CAPS 205918 GABAPENTIN Inact amie ONETOUCH ULTRA BLUE STRP Test twice a day ONETOUCH ULTRA BLUE STRP GLUCOSE BLOOD Inactive NAPROXEN SODIUM 220 MG ORAL TABS 1 three times a day as needed 2 NAPROXEN SODIUM 220 MG ORAL TABS 114544 NAPROXEN SODIUM Inactive TOUJEO SOLOSTAR 300 UNIT/ML SC SOPN 10 units SC daily TOUJEO SOLOSTAR 300 UNIT/ML SC SOPN INSULIN GLARGINE Inac tive Immunizations Vaccine Administration Date Value Standard Floyd cription pneumococcal immunization administered Pneumovax 23 [CVX33] pneumococcal polysaccharide vaccine, 23 valent Seasonal influenza vaccine, injectable, containing preservative, for > 3 years old (Afluria, FluLaval, Fluzone, Fluvirin, Fluarix, Agriflu(>= 18 yo)) Fluzone (>3 yrs.) [[id number]] Influenza, seasonal, inject able Seasonal influenza vaccine, injectable, containing preservative, for > 3 years old (Afluria, FluLaval, Fluzone, Fluvirin, Fluarix, Agriflu(>= 18 yo)) Fluzone (>3 yrs.) [[id number]] Influenza, seasonal, inject able Vital Signs Date Name Value Unit Range Description blood pressure, diastolic - 8462-4 76 mm[Hg] [...] - 3141-9 228.4 [lb_av] Weigh t Measured blood pressure, diastolic - 8462-4 84 mm[Hg] BP [place] blood pressure, systolic - 8480-6 115 mm[Hg] BP sys pulse rate E&M - 8867-4 100 /min H eart rate temperature E&M 97.2 [degF] Body temp erature weight E&M - 3141-9 230 [lb_av] Weigh t Measured Diagnostic Results Date Name Value Unit Range Description Lab Report: Basic Metabolic Panel, HGBA1 C - Chemistry sodium, serum 139 mmol/L 720-770 4990/07/07 potassium, serum 4.5 mmol/L 3.5-5.2 chloride, serum 99 mmol/L 98-107 carbon dioxide, venous blood 33.8 mmol/L 21.0-32 .0 blood glucose 209 mg/dL 65-110 calcium, serum 9.8 mg/dL 8.5-10.1 urea nitrogen, blood 14 mg/dL 7-18 creatinine, serum 1.89 mg/dL 0.55-1.30 hemoglobin A1C, blood, as % of total hemoglobin 8.3 % 4.3-6.0 Lab Report: CBC - Hematology leukocyte count, blood 8.0 10^3/MM^3 10*3/mm3 4.6-10.2 mean corpuscular hemoglobin concentration, RBC 33.4 G/DL % 31.8-35.4 red blood cell distribution width 16.2 % 11 .6-14.8 platelet count 345 10^3/MM^3 10*3/mm3 425-538 9658/08/08 erythrocyte (RBC) count 3.75 10^6/MM^3 10*6/mm3 4.04-5.4 8 hemoglobin, blood 12.2 g/dL 12.0-16.0 hematocrit, blood 36.5 % 36.0-46.0 mean corpuscular volume, RBC 97 fL 80-97 mean corpuscular hemoglobin, RBC 32.5 pg 27. 0-31.2 Lab Report: CBC, HGBA1C, Renal Panel - C hemistry hemoglobin A1C, blood, as % of total hemoglobin 7.9 % 4.3-6.0 sodium, serum 139 mmol/L 880-051 8910/02/04 potassium, serum 5.4 mmol/L 3.5-5.2 chloride, serum [...] count 308 10^3/MM^3 10*3/mm3 142-424 Lab Report: Renal Panel - Chemistry blood glucose 193 mg/dL 65-110 urea nitrogen, blood 30 mg/dL 7-18 calcium, serum 9.8 mg/dL 8.5-10.1 creatinine, serum 1.98 mg/dL 0.55-1.30 carbon dioxide, venous blood 34.1 mmol/L 21.0-32 .0 chloride, serum 101 mmol/L 98-107 potassium, serum 4.9 mmol/L 3.5-5.2 sodium, serum 141 mmol/L 136-145 Office Visit: Medication refill - Chemis try cholesterol, target level 200 mg/dL LDL target level 70 mg/dL HDL cholesterol, serum, target level 40 mg/dL triglyceride, target level 150 mg/dL Encounters Code Encounter Date Provider Facility CPT-00566 Level 4 Est. Patient 11:34:17 CDT Baltazar Childers MD [facility] CPT-64469 Level 3 Est. Patient 16:40:40 CDT aBltazar Childers MD [facility] CPT-73318 Level 4 Est. Patient 10:41:24 CDT Baltazar Childers MD [facility] CPT-32582 Level 4 Est. Patient 16:01:48 CDT Baltazar Childers MD [facility] CPT-83246 Level 4 Est. 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 Patient 15:42:12 CDT Baltazar Childers MD [facility] CPT-34139 Level 4 Est. Patient 11:29:55 CDT Baltazar Childers MD [facility] CPT-67052 Level 4 Est. Patient 14:15:19 CDT Baltazar Childers MD [facility] CPT-79923 Level 4 Est. Patient 12:20:13 CDT Baltazar Childers MD [facility] CPT-40077 Level 4 Est. 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 Patient 14:18:34 FIRE HYDRANT OPERATOR Baltazar Childers MD [facility] CPT-97728 Level 4 Est. Patient 15:18:29 CDT Baltazar Childers MD [facility] CPT-75811 Level 3 Est. Patient 12:45:34 CDT Baltazar Childers MD [facility] CPT-33728 Level 3 Est. Patient 10:10:11 CDT Baltazar Childers MD [facility] CPT-81348 Level 3 Est. Patient 14:07:50 CDT Baltazar Childers MD [facility] CPT-24752 Level 4 Est. 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 Patient 14:45:38 CDT Baltazar Childers MD [facility] CPT-59499 Level 4 New Patient 12:30:48 CDT Baltazar hinton MD [facility] Procedures Code Procedure Name Date Entry Date Standard Desc ription CPT-38126 Renal Panel - LAB USE ONLY 17:39:20 CDT 201 10/31/07 CPT-62213 CBC - LAB USE ONLY 17:39:20 CDT CPT-65210 Venipuncture Draw Fee 17:39:20 CDT CPT-83546 Venipuncture Draw Fee 14:33:30 CDT CPT-32934 Renal Panel - LAB USE ONLY 14:33:30 CDT 201 10/31/07 CPT-84995 CBC - LAB USE ONLY 14:33:29 CDT CPT-13560 Venipuncture Draw Fee 14:50:21 FIRE HYDRANT OPERATOR CPT-86519 Immunization Single Admin 17:35:35 CDT 2014 CPT-12891 Fluzone Quadrivalent preservative free ( >=3yrs.) 17:35:35 CDT CPT-76266 Venipuncture Draw Fee 12:10:27 FIRE HYDRANT OPERATOR CPT-61082 Fluzone Quadrivalent Intramuscular Suspe nsion 0.5 ML 10:49:13 CDT CPT-60768 First Vx Component - Ix admi n via ID IM or jet inj without physician counseling 15:17:19 FIRE HYDRANT OPERATOR CPT-82647 Pneumovax 23 15:17:19 FIRE HYDRANT OPERATOR CPT-90013 Pneumovax 14:52:45 FIRE HYDRANT OPERATOR CPT-62754 Venipuncture Draw Fee 14:06:30 FIRE HYDRANT OPERATOR CPT-000 Give Appropriate Flu Vaccine 14:18:34 FIRE HYDRANT OPERATOR 2 CPT-38986 Administration single or combination vac cine inc oral 14:46:00 FIRE HYDRANT OPERATOR CPT-28651 Influenza split virus > age 3 14:46:00 FIRE HYDRANT OPERATOR CPT-OV Office Visit 19:13:16 CDT CPT-64421 Zostavax 18:41:56 CDT CPT-32278 Administration single or combination vac cine inc oral 12:56:39 CDT CPT-27070 Zoster Vaccine (Zostavax) 12:56:39 CDT 2012 CPT-67468 Venipuncture Draw Fee 10:58:57 CDT CPT-61455 Sono pelvis non OB uterus ovaries cervix 17:45:04 CDT CPT-95308 Sono retroperitoneal complete kidneys an d bladder 17:14:36 CDT CPT-OV Office Visit 14:59:38 FIRE HYDRANT OPERATOR CPT-J1070 Depo Testosterone 100 mg 14:50:13 CDT 03/05 CPT-96595 Abx/Therapy Injection 14:50:13 CDT CPT-08356 Administration single or combination vac cine inc oral 14:34:43 CDT CPT-60214 Influenza split virus > age 3 14:34:43 CDT CPT-J1070 Depo Testosterone 100 mg 17:37:13 CDT 01/11 CPT-39528 Abx/Therapy Injection 17:37:13 CDT CPT-79415 Venipuncture Draw Fee 16:30:13 CDT CPT-47910 Venipuncture Draw Fee 16:29:43 CDT CPT-J1070 Depo Testosterone 100 mg 14:45:38 CDT 01/11
--- OUTSIDE RECORDS SUMMARY | 2019-10-27 12:03 | XMS REPORT | Clinical Summary ---
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 Benign neoplasm of colon PERIPHERAL NEUROPATHY 356.9 [...] ronary atherosclerosis of unspecified type of vessel, [place] or graft OTH NONSPC ABN FINDNG RAD&OTH [...] III 585.3 Active 201 10/25/03 Elbamargarette Ryan KENDALL Chronic kidney disease, Stage III (moder ate) COLON POLYPS ICD-211.3 Inactive Lolissigrid Thomas APR N Medication List Medication Instructions Start Date Stop Date Generic Name NDC Status Provider Patient Instruction NAPROXEN SODIUM 220 MG ORAL TABS 1 three times a day as needed 2 NAPROXEN SODIUM 70092146427 No Longer Active Baltazar Childers MD Active ATORVASTATIN CALCIUM 20 MG ORAL TABS Take 1 tab daily ATORVASTATIN CALCIUM 60240048527 Active KENDALL Juarez Active FUROSEMIDE 40 MG TABS Take one by mouth daily FUROSEMIDE 21351285366 Active Baltazar Childers MD Active LISINOPRIL 20 MG TABS Take one by mouth daily at bedtime LISINOPRIL 89289110591 Active KENDALL Juarez Active ONETOUCH ULTRA BLUE STRP Test twice a day GLUCO SE BLOOD 07943405433 No Longer Active Baltazar Childers MD Active TRUEPLUS LANCETS 33G MISC Test twice a day LANCET S 05027236682 Active KENDALL Juarez Active TRUEDRAW LANCING DEVICE MISC Test twice a day L ANCET DEVICES 59610767658 Active Baltazar Childers MD Active TRUETRACK TEST STRP Test twice a day GLUCOSE BLOO D 78815732815 Active Baltazar Childers MD Active TRUETRACK BLOOD GLUCOSE W/DEVICE KIT Test twice a day BLOOD GLUCOSE MONITORING SUPPL 09445140281 Active Baltazar Childers MD Activ e HYDROCODONE-ACETAMINOPHEN 7.5-325 MG TABS Take 1 tab every 6-8 hour s PRN HYDROCODONE-ACETAMINOPHEN 60434950621 Active Baltazar Childers MD Active NORTRIPTYLINE HCL 50 MG CAPS 1 every night for neuropathy 4 NORTRIPTYLINE HCL 99310772831 Active Baltazar Childers MD Acti ve GABAPENTIN 300 MG CAPS 1 three times a day GABAPE NTIN 02438398859 Active KENDALL Juarez Active GABAPENTIN 300 MG CAPS 1 po qd x 2 days, then 1 po BID x 2 d ays, then 1 po TID GABAPENTIN 37629731833 No Longer Active Baltazar silverman MD Active TRAMADOL HCL 50 MG TABS 1 twice a day as needed for pain TRAMADOL HCL 37323421421 Active Baltazar Childers MD Active NAPROXEN 500 MG TABS 1 tablet by mouth twice daily NAPROXEN 02057041892 No Longer Active Baltazar Childers MD Active PROAIR HFA 108 (90 BASE) MCG/ACT AERS 2 puffs four times a d ay as needed ALBUTEROL SULFATE 84884287089 Active KENDALL Juarez Active DEPO-TESTOSTERONE 200 MG/ML OIL as directed RUFINO TOSTERONE CYPIONATE 19184205961 No Longer Active Baltazar Childers MD Active LIPITOR 20 MG TABS Take one by mouth daily in evening ATORVASTATIN CALCIUM 17777858096 No Longer Active Baltazar Childers MD Activ e CRESTOR 10 MG TABS 1 by mouth every day R OSUVASTATIN CALCIUM 23378351749 No Longer Active Baltazar Childers MD Activ e PHENTERMINE HCL 37.5 MG TABS Take one by mouth daily 2 PHENTERMINE HCL 34908562139 No Longer Active Baltazar Childers MD Activ e ROBAXIN-750 750 MG TABS Take one by mouth daily ME THOCARBAMOL 07980738135 Active Baltazar Childers MD Active TIZANIDINE HCL 4 MG TABS 1 daily as needed for muscle spasm 2011 TIZANIDINE HCL 66780435258 No Longer Active Dawna Salazar RN Active NHECYJBJCI-CDTS-GEIHWJOY 50-325-40 MG TABS 1 four time s a day as needed for heacache TGHIDCMJVF-[id number] 34398757799 Active Baltazar Childers MD Active SUMATRIPTAN SUCCINATE 100 MG TABS 1 tablet by mouth at onset of migraine as needed SUMATRIPTAN SUCCINATE 84590177276 Active KENDALL Juarez Active LORATADINE 10 MG TABS Take one by mouth daily LORATADINE 95132725894 Active Baltazar Childers MD Active OMEPRAZOLE 20 MG CPDR Take one by mouth daily OMEPRAZOLE 05144911369 Active Baltazar Childers MD Active HYDROXYZINE HCL 25 MG TABS Take one by mouth daily HYDROXYZINE HCL 69634292521 Active Baltazar Childers MD Active GLIPIZIDE 10 MG TABS 1 tablet by mouth twice daily GLIPIZIDE 98773682703 Active Bella Suarez APRN Active ALPRAZOLAM 1 MG TABS 1 tablet by mouth daily at bedtime for restles s leg ALPRAZOLAM 94484474578 Active Baltazar Childers MD Active METFORMIN HCL 1000 MG TABS Take one by mouth twice daily METFORMIN HCL 83650902053 Active Baltazar Childers MD Active TIZANIDINE HCL 4 MG TABS 1 daily as needed for muscle spasm 2011 TIZANIDINE HCL 4 MG TABS 101235 TIZANIDINE HCL Inactiv e PHENTERMINE HCL 37.5 MG TABS Take one by mouth daily 2 PHENTERMINE HCL 37.5 MG TABS 328973 PHENTERMINE HCL Inactive CRESTOR 10 MG TABS 1 by mouth every day C RESTOR 10 MG TABS ROSUVASTATIN CALCIUM Inactive LIPITOR 20 MG TABS Take one by mouth daily in evening LIPITOR 20 MG TABS 395447 ATORVASTATIN CALCIUM Inactive DEPO-TESTOSTERONE 200 MG/ML OIL as directed 8 DEPO-TESTOSTERONE 200 MG/ML OIL 648092 TESTOSTERONE CYPIONATE Inactive NAPROXEN 500 MG TABS 1 tablet by mouth twice daily 201 07/27/22 NAPROXEN 500 MG TABS 618023 NAPROXEN Inactive GABAPENTIN 300 MG CAPS 1 po qd x 2 days, then 1 po BID x 2 d ays, then 1 po TID GABAPENTIN 300 MG CAPS 148509 GABAPENTIN Inact amie ONETOUCH ULTRA BLUE STRP Test twice a day ONETOUCH ULTRA BLUE STRP GLUCOSE BLOOD Inactive NAPROXEN SODIUM 220 MG ORAL TABS 1 three times a day as needed 2 NAPROXEN SODIUM 220 MG ORAL TABS 129999 NAPROXEN SODIUM Inactive Immunizations Vaccine Administration Date Value Standard Floyd cription pneumococcal immunization administered Pneumovax 23 [CVX33] pneumococcal polysaccharide vaccine, 23 valent Seasonal influenza vaccine, injectable, containing preservative, for > 3 years old (Afluria, FluLaval, Fluzone, Fluvirin, Fluarix, Agriflu(>= 18 yo)) Fluzone (>3 yrs.) [[id number]] Influenza, seasonal, inject able Seasonal influenza vaccine, injectable, containing preservative, for > 3 years old (Afluria, FluLaval, Fluzone, Fluvirin, Fluarix, Agriflu(>= 18 yo)) Fluzone (>3 yrs.) [[id number]] Influenza, seasonal, inject able Vital Signs Date Name Value Unit Range Description blood pressure, diastolic - 8462-4 74 mm[Hg] [...] - 3141-9 229.6 [lb_av] Weigh t Measured Diagnostic Results Date Name Value Unit Range Description Lab Report: CBC, HGBA1C, Renal Panel - C hemistry hemoglobin A1C, blood, as % of total hemoglobin 7.9 % 4.3-6.0 sodium, serum 139 mmol/L 821-523 4548/02/04 potassium, serum 5.4 mmol/L 3.5-5.2 chloride, serum [...] 0.40 mg/dL 0.00-1.00 cholesterol, serum 405 mg/dL 834-377 9996/11/23 triglyceride, serum, fasting 709 mg/dL 30-200 HDL cholesterol, serum 53 mg/dL 32-96 LDL cholesterol, serum 210 mg/dL 0-130 blood glucose 136 mg/dL 65-110 chloride, serum 98 mmol/L 98-107 potassium, serum 5.7 mmol/L 3.5-5.2 carbon dioxide, venous blood 32.4 mmol/L 21.0-32 .0 sodium, serum 138 mmol/L 136-145 Lab Report: HGBA1C - Chemistry [...] mg/dL Encounters Code Encounter Date Provider Facility CPT-94665 Level 4 Est. Patient 16:01:48 CDT Baltazar Childers MD [facility] CPT-24250 Level 4 Est. 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 Patient 15:42:12 CDT Baltazar Childers MD [facility] CPT-43021 Level 4 Est. Patient 11:29:55 CDT Baltazar Childers MD [facility] CPT-66582 Level 4 Est. Patient 14:15:19 CDT Baltazar Childers MD [facility] CPT-18966 Level 4 Est. Patient 12:20:13 CDT Baltazar Childers MD [facility] CPT-35077 Level 4 Est. 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 Patient 14:18:34 HEEL SEAT FITTER Baltazar Childers MD [facility] CPT-34071 Level 4 Est. Patient 15:18:29 CDT Baltazar Childers MD [facility] CPT-81513 Level 3 Est. Patient 12:45:34 CDT Baltazar Childers MD [facility] CPT-44301 Level 3 Est. Patient 10:10:11 CDT Baltazar Childers MD [facility] CPT-61440 Level 3 Est. Patient 14:07:50 CDT Baltazar Childers MD [facility] CPT-10051 Level 4 Est. 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 Patient 14:45:38 CDT Baltazar Childers MD [facility] CPT-57811 Level 4 New Patient 12:30:48 CDT Baltazar hinton MD [facility] Procedures Code Procedure Name Date Entry Date Standard Desc ription CPT-54865 Venipuncture Draw Fee 14:50:21 HEEL SEAT FITTER CPT-56358 Immunization Single Admin 17:35:35 CDT 2014 CPT-78261 Fluzone Quadrivalent preservative free ( >=3yrs.) 17:35:35 CDT CPT-29812 Venipuncture Draw Fee 12:10:27 HEEL SEAT FITTER CPT-28543 Fluzone Quadrivalent Intramuscular Suspe nsion 0.5 ML 10:49:13 CDT CPT-19909 First Vx Component - Ix admi n via ID IM or jet inj without physician counseling 15:17:19 HEEL SEAT FITTER CPT-71005 Pneumovax 15:17:19 HEEL SEAT FITTER CPT-19286 Pneumovax 14:52:45 HEEL SEAT FITTER CPT-89520 Venipuncture Draw Fee 14:06:30 HEEL SEAT FITTER CPT-000 Give Appropriate Flu Vaccine 14:18:34 HEEL SEAT FITTER 2 CPT-36612 Administration single or combination vac cine inc oral 14:46:00 HEEL SEAT FITTER CPT-32005 Influenza split virus > age 3 14:46:00 HEEL SEAT FITTER CPT-OV Office Visit 19:13:16 CDT CPT-34032 Zostavax 18:41:56 CDT CPT-36301 Administration single or combination vac cine inc oral 12:56:39 CDT CPT-19872 Zoster Vaccine (Zostavax) 12:56:39 CDT 2012 CPT-49916 Venipuncture Draw Fee 10:58:57 CDT CPT-42821 Sono pelvis non OB uterus ovaries cervix 17:45:04 CDT CPT-01069 Sono retroperitoneal complete kidneys an d bladder 17:14:36 CDT CPT-OV Office Visit 14:59:38 HEEL SEAT FITTER CPT-J1070 Depo Testosterone 100 mg 14:50:13 CDT 03/05 CPT-93197 Abx/Therapy Injection 14:50:13 CDT CPT-77025 Administration single or combination vac cine inc oral 14:34:43 CDT CPT-94888 Influenza split virus > age 3 14:34:43 CDT CPT-J1070 Depo Testosterone 100 mg 17:37:13 CDT 01/11 CPT-48179 Abx/Therapy Injection 17:37:13 CDT CPT-09380 Venipuncture Draw Fee 16:30:13 CDT CPT-39178 Venipuncture Draw Fee 16:29:43 CDT CPT-J1070 Depo Testosterone 100 mg 14:45:38 CDT 01/11
--- OUTSIDE RECORDS SUMMARY | 2019-10-27 12:03 | XMS REPORT | Clinical Summary ---
Author Author Admin, Elba Lance [facility] Address Unknown Phone Unavailable Allergies, Adverse [...] Benign essential hypertension EDEMA 782.3 Active Baltazar Chliders MD Edema ALLERGIC RHINITIS 477.9 Active Baltazar Childers MD Allergic rhinitis, cause unspecified MIGRAINE 346.90 Active Baltazar Childers MD Migraine, unspecified, without mention of intractable migraine, without mention of status migrainosus HYPERLIPIDEMIA 272.4 Active Baltazar Childers MD Other and unspecified hyperlipidemia CARPAL TUNNEL SYNDROME 354.0 Active Baltazar silverman MD Carpal tunnel syndrome OBESITY 278.00 Inactive Baltazar Childers MD Obesity, unspecified Morbid obesity 278.01 Active Baltazar Childers MD Morbid obesity ADD 314.00 Active Baltazar Childers MD Attention deficit disorder of childhood without mention of hyperactivity DECREASED LIBIDO 799.81 Active Baltazar Wayne Decreased libido COLON POLYPS 211.3 Resolved Lolis Thomas [employer] Benign neoplasm of colon PERIPHERAL NEUROPATHY 356.9 [...] kidney and ureter CAD 414.00 Active Gladys Arec LRT Co ronary atherosclerosis of unspecified type of vessel, [place] or graft OTH NONSPC ABN FINDNG [...] gynecological examination Health screening V70.0 Active Baltazar Wyane Routine general medical examination at a health care facility Chronic pain syndrome 338.4 Active Baltazar Nickerson MD Chronic pain syndrome Chronic kidney disease stage III 585.3 Active 201 10/25/03 Elbamargarette Ryan A Chronic kidney disease, Stage III (moder ate) [...] Generic Name NDC Status Provider Patient Instruction GABAPENTIN 300 MG ORAL CAPSULE 1 three times a day 201 12/03/26 GABAPENTIN 64099585482 No Longer Active Baltazar Childers MD Activ e LISINOPRIL 20 MG ORAL TABLET 1 tablet by mouth daily at night 2016 LISINOPRIL 10257620742 Active Baltazar Childers MD Active ZITHROMAX Z-ISAIAS 250 MG ORAL TABLET Take two tablets to day and then 1 tablet daily for 4 days AZITHROMYCIN 35832067481 No Longer A ctive Baltazar Childers MD Active LANTUS SOLOSTAR 100 UNIT/ML SUBCUTANEOUS SOLUTION PEN- INJECTOR 30 units SC daily INSULIN GLARGINE 15002655866 Active Baltazar Childers MD Active AMLODIPINE BESYLATE 5 MG ORAL TABLET 1 tab daily for HTN AMLODIPINE BESYLATE 06577741599 Active Baltazar Childers MD Active SYNTHROID 100 MCG ORAL TABLET 1 tablet by mouth daily LEVOTHYROXINE SODIUM 93080039108 Active Baltazar Childers MD Active GLIPIZIDE 10 MG ORAL TABLET take 2 tablets twice daily GLIPIZIDE 21155434681 Active Baltazar Childers MD Active SUCRALFATE 1 GM ORAL TABLET 1 four times a day to coat the stoma ch SUCRALFATE 00538380656 No Longer Active Baltazar Childers MD Active PEN NEEDLES 31G X 6 MM use 1 daily INSULIN PEN NE EDLE 69668663039 Active KENDALL Juarez Active CELINA SOLOSTNAKITA 300 UNIT/ML SUBCUTANEOUS SOLUTION PEN- INJECTOR 10 units SC daily INSULIN GLARGINE 97782053300 No Longer Active Rola Godinez RMA Active NAPROXEN SODIUM 220 MG ORAL TABLET 1 three times a day as needed NAPROXEN SODIUM 52270776871 No Longer Active Baltazar Childers MD Active ATORVASTATIN CALCIUM 20 MG ORAL TABLET Take 1 tab daily ATORVASTATIN CALCIUM 88285971160 Active Baltazar Childers MD A ctive FUROSEMIDE 40 MG ORAL TABLET Take one by mouth daily FUROSEMIDE 11175613331 Active Baltazar Childers MD Active LISINOPRIL 20 MG ORAL TABLET Take one by mouth daily at bedtime LISINOPRIL 02429125843 No Longer Active Baltazar Childers MD Active ONETOUCH ULTRA BLUE IN VITRO STRIP Test twice a day 07/11/11 GLUCOSE BLOOD 94942964322 No Longer Active Baltazar Childers MD Acti ve TRUEPLUS LANCETS 33G Test twice a day LANCETS 1602363 3827 Active KENDALL Juarez Active TRUEDRAW LANCING DEVICE Test twice a day LANCET DEVICES 78012763168 Active Baltazar Childers MD Active TRUETRACK TEST IN VITRO STRIP Test twice a day GLUCOSE BLOOD 28865581870 Active KENDALL Juarez Active TRUETRACK BLOOD GLUCOSE w/Device KIT Test twice a day BLOOD GLUCOSE MONITORING SUPPL 95145857943 Active Baltazar Childers MD Activ e HYDROCODONE-ACETAMINOPHEN 7.5-325 MG ORAL TABLET Take 1 tab every 6-8 hours PRN HYDROCODONE-ACETAMINOPHEN 51411412067 Active Baltazar Nickerson MD Active NORTRIPTYLINE HCL 50 MG ORAL CAPSULE 1 every night for neuropathy 2 NORTRIPTYLINE HCL 52839400988 Active Baltazar Childers MD Acti ve GABAPENTIN 300 MG ORAL CAPSULE 1 po qd x 2 days, then 1 po BID x 2 days, then 1 po TID GABAPENTIN 57712676481 No Longer Active Baltazar Childers MD Active TRAMADOL HCL 50 MG ORAL TABLET 1 twice a day as needed for pain 201 07/27/28 TRAMADOL HCL 28908139613 Active Baltazar Childers MD Active NAPROXEN 500 MG ORAL TABLET 1 tablet by mouth twice daily NAPROXEN 51902288607 No Longer Active Baltazar Childers MD Active PROAIR HFA 108 (90 Base) MCG/ACT INHALATION AEROSOL SO LUTION 2 puffs four times a day as needed ALBUTEROL SULFATE 46664849259 Active KENDALL Bowie Active DEPO-TESTOSTERONE 200 MG/ML INTRAMUSCULAR SOLUTION as directed TESTOSTERONE CYPIONATE 56727287988 No Longer Active Baltazar Childers MD Active LIPITOR 20 MG ORAL TABLET Take one by mouth daily in evening ATORVASTATIN CALCIUM 28388140012 No Longer Active Baltazar Childers MD Active CRESTOR 10 MG ORAL TABLET 1 by mouth every day ROSUVASTATIN CALCIUM 23045059247 No Longer Active Baltazar Childers MD Active PHENTERMINE HCL 37.5 MG ORAL TABLET Take one by mouth daily PHENTERMINE HCL 67412567961 No Longer Active Baltazar Childers MD Ac tive ROBAXIN-750 750 MG ORAL TABLET Take one by mouth daily METHOCARBAMOL 71475781175 Active KENDALL Juarez Active TIZANIDINE HCL 4 MG ORAL TABLET 1 daily as needed for muscle spa sm TIZANIDINE HCL 21211229924 No Longer Active Dawna Salazar RN Active [id number] 50-325-40 MG ORAL TABLET 1 fo ur times a day as needed for heacache [id number] 77825650347 Active Baltazar Childers MD Active SUMATRIPTAN SUCCINATE 100 MG ORAL TABLET 1 tablet by m outh at onset of migraine as needed SUMATRIPTAN SUCCINATE 83971516100 Active KENDALL Restrepo Active LORATADINE 10 MG ORAL TABLET Take one by mouth daily LORATADINE 45133897674 Active Baltazar Childers MD Active OMEPRAZOLE 20 MG ORAL CAPSULE DELAYED RELEASE Take one by mouth jostin ly OMEPRAZOLE 24035959590 Active Baltazar Childers MD Active HYDROXYZINE HCL 25 MG ORAL TABLET Take one by mouth daily HYDROXYZINE HCL 54115455159 Active Baltazar Childers MD Active ALPRAZOLAM 1 MG ORAL TABLET 1 [facility] 36789731901 Active Baltazar Childers MD Active METFORMIN HCL 1000 MG ORAL TABLET Take one by mouth twice daily METFORMIN HCL 13163906741 Active Baltazar Childers MD Active TIZANIDINE HCL 4 MG ORAL TABLET 1 daily as needed for muscle spa sm TIZANIDINE HCL 4 MG ORAL TABLET 769342 TIZANIDINE HCL Inactive PHENTERMINE HCL 37.5 MG ORAL TABLET Take one by mouth daily PHENTERMINE HCL 37.5 MG ORAL TABLET 037086 PHENTERMINE HCL Inac tive CRESTOR 10 MG ORAL TABLET 1 by mouth every day CRESTOR 10 MG ORAL TABLET 179273 ROSUVASTATIN CALCIUM Inactive LIPITOR 20 MG ORAL TABLET Take one by mouth daily in evening LIPITOR 20 MG ORAL TABLET 515302 ATORVASTATIN CALCIUM Inactive DEPO-TESTOSTERONE 200 MG/ML INTRAMUSCULAR SOLUTION as directed DEPO-TESTOSTERONE 200 MG/ML INTRAMUSCULAR SOLUTION 474951 RUFINO TOSTERONE CYPIONATE Inactive NAPROXEN 500 MG ORAL TABLET 1 tablet by mouth twice daily NAPROXEN 500 MG ORAL TABLET 777358 NAPROXEN Inactive GABAPENTIN 300 MG ORAL CAPSULE 1 po qd x 2 days, then 1 po BID x 2 days, then 1 po TID GABAPENTIN 300 MG ORAL CAPSULE 258183 GABAP ENTIN Inactive ONETOUCH ULTRA BLUE IN VITRO STRIP Test twice a day 07/11/11 ONETOUCH ULTRA BLUE IN VITRO STRIP GLUCOSE BLOOD Inact amie NAPROXEN SODIUM 220 MG ORAL TABLET 1 three times a day as needed NAPROXEN SODIUM 220 MG ORAL TABLET 500126 NAPROXEN SODI UM Inactive TOUJEO SOLOSTAR 300 UNIT/ML SUBCUTANEOUS SOLUTION PEN- INJECTOR 10 units SC daily TOUJEO SOLOSTAR 300 UNIT/ML SUBCUTANEOUS SOLUTION PEN-INJECTOR INSULIN GLARGINE Inactive SUCRALFATE 1 GM ORAL TABLET 1 four times a day to coat the stoma ch SUCRALFATE 1 GM ORAL TABLET 817336 SUCRALFATE Inac tive GABAPENTIN 300 MG ORAL CAPSULE 1 three times a day 201 12/03/26 GABAPENTIN 300 MG ORAL CAPSULE 535656 GABAPENTIN Inactive ZITHROMAX Z-ISAIAS 250 MG ORAL TABLET Take two tablets to day and then 1 tablet daily for 4 days ZITHROMAX Z-ISAIAS 250 MG ORAL TAB LET 828843 AZITHROMYCIN Inactive Immunizations Vaccine Administration Date Value Standard Floyd cription pneumococcal immunization administered Pneumovax 23 [CVX33] pneumococcal polysaccharide vaccine, 23 valent Seasonal influenza vaccine, injectable, containing preservative, for > 3 years old (Afluria, FluLaval, Fluzone, Fluvirin, Fluarix, Agriflu(>= 18 yo)) Fluzone (>3 yrs.) [[id number]] Influenza, seasonal, inject able Seasonal influenza vaccine, injectable, containing preservative, for > 3 years old (Afluria, FluLaval, Fluzone, Fluvirin, Fluarix, Agriflu(>= 18 yo)) Fluzone (>3 yrs.) [ALD976] Influenza, seasonal, inject able Vital Signs Date [...] weight E&M 228.0 [lb_av] Weight Measure d blood pressure, diastolic 69 mm[Hg] BP [place] blood pressure, systolic 108 mm[Hg] BP sys height E&M 66.5 [in_us] Bdy height pulse rate E&M 93 /min Heart rate temperature E&M 98.0 [degF] Body temp erature weight E&M 229.5 [lb_av] Weight Measure d Diagnostic Results Date Name Value Unit Range Description Lab Report: Basic Metabolic Panel - Chem istry sodium, serum 139 mmol/L 554-501 5269/10/03 potassium, serum 4.7 mmol/L 3.5-5.2 chloride, serum 98 mmol/L 98-107 carbon dioxide, venous blood 28.7 mmol/L 21.0-32 .0 blood glucose 218 mg/dL 65-110 calcium, serum 9.8 mg/dL 8.5-10.1 urea nitrogen, blood 19 mg/dL 7-18 creatinine, serum 1.68 mg/dL 0.60-1.30 Lab Report: Basic Metabolic Panel, HGBA1 C - Chemistry sodium, serum 143 mmol/L 135-010 8038/06/19 potassium, serum 5.9 mmol/L 3.5-5.2 chloride, serum 105 mmol/L 98-107 carbon dioxide, venous blood 30.2 mmol/L 21.0-32 .0 blood glucose 189 mg/dL 65-110 calcium, serum 9.7 mg/dL 8.5-10.1 urea nitrogen, blood 37 mg/dL 7-18 creatinine, serum 2.11 mg/dL 0.55-1.30 hemoglobin A1C, blood, as % of total hemoglobin 8.2 % 4.3-6.0 Lab Report: CBC, Renal Panel - Chemistry sodium, serum 142 mmol/L 518-842 3124/08/11 potassium, serum 4.8 mmol/L 3.5-5.2 chloride, serum [...] (L) - Chemistry cholesterol, serum 209 mg/dL 016-802 2898/12/27 triglyceride, serum, fasting 329 mg/dL 30-200 HDL cholesterol, serum 56 mg/dL 32-60 LDL cholesterol, serum 87 mg/dL 0-130 TSH 3.60 m[iU]/mL 0.36-3.74 Encounters Code Encounter Date Provider Facility CPT-39738 Level 4 Est. Patient 17:05:37 CDT Baltazar Childers MD [facility] CPT-68153 Level 4 Est. 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 Patient 12:25:11 CDT Baltazar Childers MD [facility] CPT-30627 Level 4 Est. Patient 14:22:31 CDT Baltazar Childers MD [facility]-64287 Level 4 Est. Patient 15:44:38 CDT Shonna Parker APRN [facility] CPT-05799 Level 4 Est. Patient 11:34:17 CDT Baltazar Childers MD [facility]-06311 Level 3 Est. Patient 16:40:40 CDT Baltazar Childers MD [facility]-73556 Level 4 Est. Patient 10:41:24 CDT Baltazar Childers MD [facility]-94935 Level 4 Est. Patient 16:01:48 CDT Baltazar Childers MD [facility]-85390 Level 4 Est. Patient 16:54:07 [employer]OR [employer] Baltazar Childers MD [facility]-47765 Level 4 Est. Patient 15:42:12 CDT Baltaazr Childers MD [facility] CPT-07022 Level 4 Est. Patient 11:29:55 CDT Baltazar Childers MD [facility] CPT-51071 Level 4 Est. Patient 14:15:19 CDT Baltazar Childesr MD [facility] CPT-79713 Level 4 Est. Patient 12:20:13 CDT Baltazar Childers MD [facility] CPT-21415 Level 4 Est. 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 Patient 15:18:29 CDT Baltazar Childers MD [facility]-75628 Level 3 Est. Patient 12:45:34 CDT Baltazar Childers MD [facility]-53286 Level 3 Est. Patient 10:10:11 CDT Baltazar Childers MD [facility] CPT-65219 Level 3 Est. Patient 14:07:50 CDT Baltazar Childers MD [facility] CPT-90514 Level 4 Est. 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 Patient 14:45:38 CDT Baltazar Childers MD [facility] CPT-16727 Level 4 New Patient 12:30:48 CDT Baltazar hinton MD [facility] Procedures Code Procedure Name Date Entry Date Standard Desc ription CPT-000 Give Appropriate Flu Vaccine 12:25:14 CDT 2 CPT-35290 First Vx - Ix admin via ID I M or jet injects without counseling by physician 13:08:59 CDT CPT-72759 Fluzone Quadrivalent Intramuscular Suspe nsion 0.5 ML 13:08:59 CDT CPT-90606 Venipuncture Draw Fee 12:04:12 CDT CPT-07698 Lipid - LAB USE ONLY 17:39:15 [employer] 9 CPT-68161 HGBA1C - LAB USE ONLY 17:39:15 [employer]OR [employer] CPT-67391 CMP - LAB USE ONLY 17:39:14 [employer] CPT-19179 Venipuncture Draw Fee 17:39:14 [employer]PERVISOR [employer] CPT-26327 First Vx - Ix admin via ID I M or jet injects without counseling by physician 16:55:17 [employer]PERVISOR [employer] CPT-82633 Fluzone Quadrivalent Intramuscular Suspe nsion 0.5 ML 16:55:17 [employer]PER[employer]OR [employer] CPT-30711 Renal Panel - LAB USE ONLY 17:39:20 CDT 201 10/31/07 CPT-53127 CBC - LAB USE ONLY 17:39:20 CDT CPT-32870 Venipuncture Draw Fee 17:39:20 CDT CPT-13713 Venipuncture Draw Fee 14:33:30 CDT CPT-06631 Renal Panel - LAB USE ONLY 14:33:30 CDT 201 10/31/07 CPT-38823 CBC - LAB USE ONLY 14:33:29 CDT CPT-08320 Venipuncture Draw Fee 14:50:21 [employer]PER[employer]OR [employer] CPT-54271 Immunization Single Admin 17:35:35 CDT 2014 CPT-79513 Fluzone Quadrivalent preservative free ( >=3yrs.) 17:35:35 CDT CPT-62366 Venipuncture Draw Fee 12:10:27 [employer]PERVISOR [employer] CPT-24858 Fluzone Quadrivalent Intramuscular Suspe nsion 0.5 ML 10:49:13 CDT CPT-66782 First Vx Component - Ix admi n via ID IM or jet inj without physician counseling 15:17:19 [employer]PER[employer]OR [employer] CPT-56575 Pneumovax 23 15:17:19 [employer]PER[employer]OR [employer] CPT-17174 Pneumovax 14:52:45 [employer]PERVISOR [employer] CPT-89834 Venipuncture Draw Fee 14:06:30 [employer]PER[employer]OR [employer] CPT-000 Give Appropriate Flu Vaccine 14:18:34 SUPER[employer]OR [employer] 2 CPT-28458 Administration single or combination vac cine inc oral 14:46:00 [employer]PERVISOR [employer] CPT-26859 Influenza split virus > age 3 14:46:00 [employer]PERVISOR [employer] CPT-OV Office Visit 19:13:16 CDT CPT-62506 Zostavax 18:41:56 CDT CPT-76374 Administration single or combination vac cine inc oral 12:56:39 CDT CPT-56174 Zoster Vaccine (Zostavax) 12:56:39 CDT 2012 CPT-85473 Venipuncture Draw Fee 10:58:57 CDT CPT-62636 Sono pelvis non OB uterus ovaries cervix 17:45:04 CDT CPT-79694 Sono retroperitoneal complete kidneys an d bladder 17:14:36 CDT CPT-OV Office Visit 14:59:38 [employer]PER[employer]OR [employer] CPT-J1070 Depo Testosterone 100 mg 14:50:13 CDT 03/05 CPT-22914 Abx/Therapy Injection 14:50:13 CDT CPT-63287 Administration single or combination vac cine inc oral 14:34:43 CDT CPT-02371 Influenza split virus > age 3 14:34:43 CDT CPT-J1070 Depo Testosterone 100 mg 17:37:13 CDT 01/11 CPT-88377 Abx/Therapy Injection 17:37:13 CDT CPT-80246 Venipuncture Draw Fee 16:30:13 CDT CPT-60201 Venipuncture Draw Fee 16:29:43 CDT CPT-J1070 Depo Testosterone 100 mg 14:45:38 CDT 01/11
--- OUTSIDE RECORDS SUMMARY | 2019-10-27 12:04 | XMS REPORT | Clinical Summary ---
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 Benign neoplasm of colon PERIPHERAL NEUROPATHY 356.9 [...] a day as needed 2 NAPROXEN SODIUM 08758906616 No Longer Active Baltazar Childers MD Active ATORVASTATIN CALCIUM 20 MG ORAL TABS Take 1 tab daily ATORVASTATIN CALCIUM 90469381667 Active Kelly Iraheta LPN Active FUROSEMIDE 40 MG TABS Take one by mouth daily FUROSEMIDE 63036247382 Active Baltazar Childers MD Active LISINOPRIL 20 MG TABS Take one by mouth daily at bedtime LISINOPRIL 09948999010 Active KENDALL Juarez Active ONETOUCH ULTRA BLUE STRP Test twice a day GLUCO SE BLOOD 38535901043 No Longer Active Baltazar Childers MD Active TRUEPLUS LANCETS 33G MISC Test twice a day LANCET S 22681155916 Active KENDALL Juarez Active TRUEDRAW LANCING DEVICE MISC Test twice a day L ANCET DEVICES 88386844148 Active Baltazar Childers MD Active TRUETRACK TEST STRP Test twice a day GLUCOSE BLOO D 03044279701 Active Baltazar Childers MD Active TRUETRACK BLOOD GLUCOSE W/DEVICE KIT Test twice a day BLOOD GLUCOSE MONITORING SUPPL 56187157597 Active Baltazar Childers MD Activ e HYDROCODONE-ACETAMINOPHEN 7.5-325 MG TABS Take 1 tab every 6-8 hour s PRN HYDROCODONE-ACETAMINOPHEN 71359387449 Active Baltazar Childers MD Active NORTRIPTYLINE HCL 50 MG CAPS 1 every night for neuropathy 4 NORTRIPTYLINE HCL 49379152879 Active Baltazar Childers MD Acti ve GABAPENTIN 300 MG CAPS 1 three times a day GABAPE NTIN 27483863805 Active KENDALL Juarez Active GABAPENTIN 300 MG CAPS 1 po qd x 2 days, then 1 po BID x 2 d ays, then 1 po TID GABAPENTIN 05969783597 No Longer Active Baltazar silverman MD Active TRAMADOL HCL 50 MG TABS 1 twice a day as needed for pain TRAMADOL HCL 15751388988 Active Baltazar Childers MD Active NAPROXEN 500 MG TABS 1 tablet by mouth twice daily NAPROXEN 28089127097 No Longer Active Baltazar Childers MD Active PROAIR HFA 108 (90 BASE) MCG/ACT AERS 2 puffs four times a d ay as needed ALBUTEROL SULFATE 83062474881 Active KENDALL Juarez Active DEPO-TESTOSTERONE 200 MG/ML OIL as directed RUFINO TOSTERONE CYPIONATE 83643507431 No Longer Active Baltazar Childers MD Active LIPITOR 20 MG TABS Take one by mouth daily in evening ATORVASTATIN CALCIUM 55440709756 No Longer Active Baltazar Childers MD Activ e CRESTOR 10 MG TABS 1 by mouth every day R OSUVASTATIN CALCIUM 57057102024 No Longer Active Baltazar Childers MD Activ e PHENTERMINE HCL 37.5 MG TABS Take one by mouth daily 2 PHENTERMINE HCL 34418889593 No Longer Active Baltazar Childers MD Activ e ROBAXIN-750 750 MG TABS Take one by mouth daily ME THOCARBAMOL 95721173450 Active Baltazar Childers MD Active TIZANIDINE HCL 4 MG TABS 1 daily as needed for muscle spasm 2011 TIZANIDINE HCL 74741575682 No Longer Active Dawna Salazar RN Active [id number] 50-325-40 MG TABS 1 four time s a day as needed for heacache [id number] 88492517456 Active Baltazar Childers MD Active SUMATRIPTAN SUCCINATE 100 MG TABS 1 tablet by mouth at onset of migraine as needed SUMATRIPTAN SUCCINATE 30082509767 Active KENDALL Juarez Active LORATADINE 10 MG TABS Take one by mouth daily LORATADINE 83754182172 Active Baltazar Childers MD Active OMEPRAZOLE 20 MG CPDR Take one by mouth daily OMEPRAZOLE 14624110629 Active Baltazar Childers MD Active HYDROXYZINE HCL 25 MG TABS Take one by mouth daily HYDROXYZINE HCL 97983852592 Active Baltazar Childers MD Active GLIPIZIDE 10 MG TABS 1 tablet by mouth twice daily GLIPIZIDE 26716786120 Active Bella Suarez APRN Active ALPRAZOLAM 1 MG TABS 1 tablet by mouth daily at bedtime for restles s leg ALPRAZOLAM 53283169619 Active Baltazar Childers MD Active METFORMIN HCL 1000 MG TABS Take one by mouth twice daily METFORMIN HCL 04417329269 Active Baltazar Childers MD Active TIZANIDINE HCL 4 MG TABS 1 daily as needed for muscle spasm 2011 TIZANIDINE HCL 4 MG TABS 557821 TIZANIDINE HCL Inactiv e PHENTERMINE HCL 37.5 MG TABS Take one by mouth daily 2 PHENTERMINE HCL 37.5 MG TABS 179877 PHENTERMINE HCL Inactive CRESTOR 10 MG TABS 1 by mouth every day C RESTOR 10 MG TABS ROSUVASTATIN CALCIUM Inactive LIPITOR 20 MG TABS Take one by mouth daily in evening LIPITOR 20 MG TABS 383821 ATORVASTATIN CALCIUM Inactive DEPO-TESTOSTERONE 200 MG/ML OIL as directed 8 DEPO-TESTOSTERONE 200 MG/ML OIL 092045 TESTOSTERONE CYPIONATE Inactive NAPROXEN 500 MG TABS 1 tablet by mouth twice daily 201 07/27/22 NAPROXEN 500 MG TABS 115986 NAPROXEN Inactive GABAPENTIN 300 MG CAPS 1 po qd x 2 days, then 1 po BID x 2 d ays, then 1 po TID GABAPENTIN 300 MG CAPS 777748 GABAPENTIN Inact amie ONETOUCH ULTRA BLUE STRP Test twice a day ONETOUCH ULTRA BLUE STRP GLUCOSE BLOOD Inactive NAPROXEN SODIUM 220 MG ORAL TABS 1 three times a day as needed 2 NAPROXEN SODIUM 220 MG ORAL TABS 142836 NAPROXEN SODIUM Inactive Immunizations Vaccine Administration Date Value Standard Floyd cription pneumococcal immunization administered Pneumovax 23 [CVX33] pneumococcal polysaccharide vaccine, 23 valent Seasonal influenza vaccine, injectable, containing preservative, for > 3 years old (Afluria, FluLaval, Fluzone, Fluvirin, Fluarix, Agriflu(>= 18 yo)) Fluzone (>3 yrs.) [[id number]] Influenza, seasonal, inject able Seasonal influenza vaccine, injectable, containing preservative, for > 3 years old (Afluria, FluLaval, Fluzone, Fluvirin, Fluarix, Agriflu(>= 18 yo)) Fluzone (>3 yrs.) [[id number]] Influenza, seasonal, inject able Vital Signs Date [...] Report: Basic Metabolic Panel - Chem istry chloride, serum 99 mmol/L 98-107 carbon dioxide, venous blood 34.3 mmol/L 21.0-32 .0 potassium, serum 4.9 mmol/L 3.5-5.2 blood glucose 132 mg/dL 65-110 creatinine, serum 2.00 mg/dL 0.60-1.30 urea nitrogen, blood 23 mg/dL 7-18 calcium, serum 10.1 mg/dL 8.5-10.1 sodium, serum 140 mmol/L 136-145 Lab Report: CBC, HGBA1C, Renal Panel - C hemistry hemoglobin A1C, blood, as % of total hemoglobin 7.9 % 4.3-6.0 sodium, serum 139 mmol/L 705-543 2931/02/04 potassium, serum 5.4 mmol/L 3.5-5.2 chloride, serum [...] Panel - Chemistry sodium, serum 138 mmol/L 681-931 4821/11/23 carbon dioxide, venous blood 32.4 mmol/L 21.0-32 .0 potassium, serum 5.7 mmol/L 3.5-5.2 chloride, serum 98 mmol/L 98-107 blood glucose 136 mg/dL 65-110 urea nitrogen, blood 18 mg/dL 7-18 creatinine, serum 1.71 mg/dL 0.55-1.30 alanine aminotransferase (SGPT), serum 71 U/L 12-78 aspartate aminotransferase (SGOT), serum 34 U/L 15-37 calcium, serum 9.4 mg/dL 8.5-10.1 bilirubin, serum, total 0.40 mg/dL 0.00-1.00 cholesterol, serum 405 mg/dL 326-365 3438/11/23 triglyceride, serum, fasting 709 mg/dL 30-200 HDL [...] mg/dL Encounters Code Encounter Date Provider Facility CPT-94748 Level 4 Est. Patient 16:54:07 PROGRAM DIRECTOR/MUSIC DIRECTOR Baltazar Childers MD [facility] CPT-14909 Level 4 Est. Patient 15:42:12 CDT Baltazar Childers MD [facility] CPT-08913 Level 4 Est. Patient 11:29:55 CDT Baltazar Childers MD [facility] CPT-18946 Level 4 Est. Patient 14:15:19 CDT Baltazar Childers MD [facility] CPT-58366 Level 4 Est. Patient 12:20:13 CDT Baltazar Childers MD [facility] CPT-79911 Level 4 Est. Patient 14:52:45 PROGRAM DIRECTOR/MUSIC DIRECTOR Baltazar Childers MD [facility] CPT-53925 Level 4 Est. Patient 14:18:34 PROGRAM DIRECTOR/MUSIC DIRECTOR Baltazar Childers MD [facility] CPT-12630 Level 4 Est. Patient 15:18:29 CDT Baltazar Childers MD [facility] CPT-85776 Level 3 Est. Patient 12:45:34 CDT Baltazar Childers MD [facility] CPT-98819 Level 3 Est. Patient 10:10:11 CDT Baltazar Childers MD [facility] CPT-24383 Level 3 Est. Patient 14:07:50 CDT Baltazar Childers MD [facility] CPT-17744 Level 4 Est. Patient 12:26:10 PROGRAM DIRECTOR/MUSIC DIRECTOR Baltazar Childers MD [facility] CPT-51139 Level 4 Est. Patient 14:45:38 CDT Baltazar Childers MD [facility] CPT-66289 Level 4 New Patient 12:30:48 CDT Baltazar hinton MD [facility] Procedures Code Procedure Name Date Entry Date Standard Desc ription CPT-22882 Venipuncture Draw Fee 14:50:21 PROGRAM DIRECTOR/MUSIC DIRECTOR CPT-98923 Immunization Single Admin 17:35:35 CDT 2014 CPT-95609 Fluzone Quadrivalent preservative free ( >=3yrs.) 17:35:35 CDT CPT-59543 Venipuncture Draw Fee 12:10:27 PROGRAM DIRECTOR/MUSIC DIRECTOR CPT-32835 Fluzone Quadrivalent Intramuscular Suspe nsion 0.5 ML 10:49:13 CDT CPT-96129 First Vx Component - Ix admi n via ID IM or jet inj without physician counseling 15:17:19 PROGRAM DIRECTOR/MUSIC DIRECTOR CPT-39263 Pneumovax 23 15:17:19 PROGRAM DIRECTOR/MUSIC DIRECTOR CPT-16084 Pneumovax 14:52:45 PROGRAM DIRECTOR/MUSIC DIRECTOR CPT-74944 Venipuncture Draw Fee 14:06:30 PROGRAM DIRECTOR/MUSIC DIRECTOR CPT-000 Give Appropriate Flu Vaccine 14:18:34 PROGRAM DIRECTOR/MUSIC DIRECTOR 2 CPT-87538 Administration single or combination vac cine inc oral 14:46:00 PROGRAM DIRECTOR/MUSIC DIRECTOR CPT-98907 Influenza split virus > age 3 14:46:00 PROGRAM DIRECTOR/MUSIC DIRECTOR CPT-OV Office Visit 19:13:16 CDT CPT-19388 Zostavax 18:41:56 CDT CPT-43569 Administration single or combination vac cine inc oral 12:56:39 CDT CPT-67746 Zoster Vaccine (Zostavax) 12:56:39 CDT 2012 CPT-54447 Venipuncture Draw Fee 10:58:57 CDT CPT-07914 Sono pelvis non OB uterus ovaries cervix 17:45:04 CDT CPT-97514 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
--- OUTSIDE RECORDS SUMMARY | 2019-10-27 12:04 | XMS REPORT | Clinical Summary ---
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 Benign neoplasm of colon PERIPHERAL NEUROPATHY 356.9 [...] ronary atherosclerosis of unspecified type of vessel, algaaciq or graft OTH NONSPC ABN FINDNG RAD&OTH [...] tablet by mouth daily LE VOTHYROXINE SODIUM 66564461565 Active Carina Tucker LPN Active GLIPIZIDE 10 MG TAB take 2 tablets twice daily GLIPIZIDE 20902370209 Active Carina Tucker LPN Active SUCRALFATE 1 GM TABS 1 four times a day to coat the stomach 2015 SUCRALFATE 75108477582 No Longer Active Baltazar Childers MD Active PEN NEEDLES 31G X 6 MM MISC use 1 daily INSULIN PEN NEEDLE 20413026600 Active Bella Suarez LICENSED PROSTHETIST Active TOURINKUO SOLOSTAR 300 UNIT/ML SC SOPN 10 units SC daily INSULIN GLARGINE 38907806203 No Longer Active Martita Godinez KENDALL Active LANTUS SOLOSTAR 100 UNIT/ML SC SOPN 10 units SC daily INSULIN GLARGINE 84165248598 Active Baltazar Childers MD Active NAPROXEN SODIUM 220 MG ORAL TABS 1 three times a day as needed 2 NAPROXEN SODIUM 22404403953 No Longer Active Baltazar Childers MD Active ATORVASTATIN CALCIUM 20 MG ORAL TABS Take 1 tab daily ATORVASTATIN CALCIUM 99783070267 Active Baltazar Childers MD Active FUROSEMIDE 40 MG TABS Take one by mouth daily FUROSEMIDE 71147867447 Active Baltazar Childers MD Active LISINOPRIL 20 MG TABS Take one by mouth daily at bedtime LISINOPRIL 79677747524 Active KENDALL Juarez Active ONETOUCH ULTRA BLUE STRP Test twice a day GLUCO SE BLOOD 63147122635 No Longer Active Baltazar Childers MD Active TRUEPLUS LANCETS 33G MISC Test twice a day LANCET S 45208476513 Active KENDALL Juarez Active TRUEDRAW LANCING DEVICE MISC Test twice a day L ANCET DEVICES 41459340649 Active Baltazar Childers MD Active TRUETRACK TEST STRP Test twice a day GLUCOSE BLOO D 26731643792 Active KENDALL Juarez Active TRUETRACK BLOOD GLUCOSE W/DEVICE KIT Test twice a day BLOOD GLUCOSE MONITORING SUPPL 16388328244 Active Baltazar Childers MD Activ e HYDROCODONE-ACETAMINOPHEN 7.5-325 MG TABS Take 1 tab every 6-8 hour s PRN HYDROCODONE-ACETAMINOPHEN 21479051844 Active Shonna Parker APRN Active NORTRIPTYLINE HCL 50 MG CAPS 1 every night for neuropathy 4 NORTRIPTYLINE HCL 18687771602 Active Baltazar Childers MD Acti ve GABAPENTIN 300 MG CAPS 1 three times a day GABAPE NTIN 33285651679 Active KENDALL Juarez Active GABAPENTIN 300 MG CAPS 1 po qd x 2 days, then 1 po BID x 2 d ays, then 1 po TID GABAPENTIN 84776103787 No Longer Active Baltazar silverman MD Active TRAMADOL HCL 50 MG TABS 1 twice a day as needed for pain TRAMADOL HCL 87855130433 Active Shonna Parker APRN Active NAPROXEN 500 MG TABS 1 tablet by mouth twice daily NAPROXEN 67091615810 No Longer Active Baltazar Childers MD Active PROAIR HFA 108 (90 BASE) MCG/ACT AERS 2 puffs four times a d ay as needed ALBUTEROL SULFATE 36209729972 Active KENDALL Juarez Active DEPO-TESTOSTERONE 200 MG/ML OIL as directed RUFINO TOSTERONE CYPIONATE 33286716366 No Longer Active Baltazar Childers MD Active LIPITOR 20 MG TABS Take one by mouth daily in evening ATORVASTATIN CALCIUM 64718607971 No Longer Active Baltazar Childers MD Activ e CRESTOR 10 MG TABS 1 by mouth every day R OSUVASTATIN CALCIUM 58519179110 No Longer Active Baltazar Childers MD Activ e PHENTERMINE HCL 37.5 MG TABS Take one by mouth daily 2 PHENTERMINE HCL 13117570436 No Longer Active Baltazar Childers MD Activ e ROBAXIN-750 750 MG TABS Take one by mouth daily ME THOCARBAMOL 89757157262 Active Baltazar Childers MD Active TIZANIDINE HCL 4 MG TABS 1 daily as needed for muscle spasm 2011 TIZANIDINE HCL 87977736987 No Longer Active Dawna Salazar RN Active [id number]-[id number]-MJAGFCLH 50-325-40 MG TABS 1 four time s a day as needed for heacache [id number] 98085340274 Active Shonna Parker APRN Active SUMATRIPTAN SUCCINATE 100 MG TABS 1 tablet by mouth at onset of migraine as needed SUMATRIPTAN SUCCINATE 04011459473 Active Shonna Villaseñor er LICENSED PROSTHETIST Active LORATADINE 10 MG TABS Take one by mouth daily LORATADINE 98579098260 Active KENDALL Juarez Active OMEPRAZOLE 20 MG CPDR Take one by mouth daily OMEPRAZOLE 05032006857 Active KENDALL Juarez Active HYDROXYZINE HCL 25 MG TABS Take one by mouth daily HYDROXYZINE HCL 62691020877 Active Baltazar Childers MD Active ALPRAZOLAM 1 MG TABS 1 tablet by mouth daily at bedtime for restles s leg ALPRAZOLAM 08043574031 Active Baltazar Childers MD Active METFORMIN HCL 1000 MG TABS Take one by mouth twice daily METFORMIN HCL 54660820421 Active KENDALL Juarez Active TIZANIDINE HCL 4 MG TABS 1 daily as needed for muscle spasm 2011 TIZANIDINE HCL 4 MG TABS 831716 TIZANIDINE HCL Inactiv e PHENTERMINE HCL 37.5 MG TABS Take one by mouth daily 2 PHENTERMINE HCL 37.5 MG TABS 897596 PHENTERMINE HCL Inactive CRESTOR 10 MG TABS 1 by mouth every day C RESTOR 10 MG TABS 686358 ROSUVASTATIN CALCIUM Inactive LIPITOR 20 MG TABS Take one by mouth daily in evening LIPITOR 20 MG TABS 155222 ATORVASTATIN CALCIUM Inactive DEPO-TESTOSTERONE 200 MG/ML OIL as directed 8 DEPO-TESTOSTERONE 200 MG/ML OIL 412068 TESTOSTERONE CYPIONATE Inactive NAPROXEN 500 MG TABS 1 tablet by mouth twice daily 201 07/27/22 NAPROXEN 500 MG TABS 028721 NAPROXEN Inactive GABAPENTIN 300 MG CAPS 1 po qd x 2 days, then 1 po BID x 2 d ays, then 1 po TID GABAPENTIN 300 MG CAPS 099716 GABAPENTIN Inact amie ONETOUCH ULTRA BLUE STRP Test twice a day ONETOUCH ULTRA BLUE STRP GLUCOSE BLOOD Inactive NAPROXEN SODIUM 220 MG ORAL TABS 1 three times a day as needed 2 NAPROXEN SODIUM 220 MG ORAL TABS 915680 NAPROXEN SODIUM Inactive TOUJEO SOLOSTAR 300 UNIT/ML SC SOPN 10 units SC daily TOUJEO SOLOSTAR 300 UNIT/ML SC SOPN INSULIN GLARGINE Inac tive SUCRALFATE 1 GM TABS 1 four times a day to coat the stomach 2015 SUCRALFATE 1 GM TABS 522035 SUCRALFATE Inactive Immunizations Vaccine Administration Date Value Standard Floyd cription pneumococcal immunization administered Pneumovax 23 [CVX33] pneumococcal polysaccharide vaccine, 23 valent Seasonal influenza vaccine, injectable, containing preservative, for > 3 years old (Afluria, FluLaval, Fluzone, Fluvirin, Fluarix, Agriflu(>= 18 yo)) Fluzone (>3 yrs.) [[id number]] Influenza, seasonal, inject able Seasonal influenza vaccine, injectable, containing preservative, for > 3 years old (Afluria, FluLaval, Fluzone, Fluvirin, Fluarix, Agriflu(>= 18 yo)) Fluzone (>3 yrs.) [JYI778] Influenza, seasonal, inject able Vital Signs Date [...] - 3141-9 243.5 [lb_av] Weigh t Measured Diagnostic Results Date Name Value Unit Range Description Lab Report: Basic Metabolic Panel, HGBA1 C - Chemistry sodium, serum 139 mmol/L 439-037 5025/07/07 potassium, serum 4.5 mmol/L 3.5-5.2 chloride, serum [...] 8.0 10^3/MM^3 10*3/mm3 4.6-10.2 erythrocyte (RBC) count 3.75 10^6/MM^3 10*6/mm3 4.04-5.4 8 hemoglobin, blood 12.2 g/dL 12.0-16.0 hematocrit, blood 36.5 % 36.0-46.0 mean corpuscular volume, RBC 97 fL 80-97 mean corpuscular hemoglobin, RBC 32.5 pg 27. 0-31.2 mean corpuscular hemoglobin concentration, RBC 33.4 G/DL % 31.8-35.4 red blood cell distribution width 16.2 % 11 .6-14.8 platelet count 345 10^3/MM^3 10*3/mm3 142-424 Lab Report: Comp. Metabolic Panel, Lipid Panel - Chemistry sodium, serum 143 mmol/L 038-856 9692/12/19 carbon dioxide, venous blood 32.5 mmol/L 21.0-32 .0 potassium, serum 4.9 mmol/L 3.5-5.2 chloride, serum 101 mmol/L 98-107 blood glucose 129 mg/dL 65-110 urea nitrogen, blood 18 mg/dL 7-18 creatinine, serum 1.79 mg/dL 0.55-1.30 alanine aminotransferase (SGPT), serum 34 U/L 12-78 aspartate aminotransferase (SGOT), serum 26 U/L 15-37 calcium, serum 8.9 mg/dL 8.5-10.1 bilirubin, serum, total 0.30 mg/dL 0.00-1.00 cholesterol, serum 214 mg/dL 088-132 2378/12/19 triglyceride, serum, fasting 351 mg/dL 30-200 HDL [...] Panel - Chemistry sodium, serum 141 mmol/L 100-599 2194/08/08 potassium, serum 4.9 mmol/L 3.5-5.2 chloride, serum 101 mmol/L 98-107 carbon dioxide, venous blood 34.1 mmol/L 21.0-32 .0 creatinine, serum 1.98 mg/dL 0.55-1.30 blood glucose 193 mg/dL 65-110 urea nitrogen, blood 30 mg/dL 7-18 calcium, serum 9.8 mg/dL 8.5-10.1 Encounters Code Encounter Date Provider Facility CPT-23020 Level 4 Est. Patient 15:44:38 CDT Shonna Parker APRN [facility] CPT-51141 Level 4 Est. Patient 11:34:17 CDT Baltazar Childers MD [facility] CPT-36931 Level 3 Est. Patient 16:40:40 CDT Baltazar Childers MD [facility] CPT-71774 Level 4 Est. Patient 10:41:24 CDT Baltazar Childers MD [facility] CPT-80424 Level 4 Est. Patient 16:01:48 CDT Baltazar Childers MD [facility] CPT-34294 Level 4 Est. Patient 16:54:07 HR INTERN Baltazar Childers MD [facility] CPT-46605 Level 4 Est. Patient 15:42:12 CDT Baltazar Childers MD [facility] CPT-62400 Level 4 Est. Patient 11:29:55 CDT Baltazar Childers MD [facility] CPT-46503 Level 4 Est. Patient 14:15:19 CDT Baltazar Childers MD [facility] CPT-77653 Level 4 Est. Patient 12:20:13 CDT Blatazar Childers MD [facility] CPT-42695 Level 4 Est. Patient 14:52:45 HR INTERN Baltazar Childers MD [facility] CPT-75227 Level 4 Est. Patient 14:18:34 HR INTERN Baltazar Childers MD [facility] CPT-97746 Level 4 Est. Patient 15:18:29 CDT Baltazar Childers MD [facility] CPT-15465 Level 3 Est. Patient 12:45:34 CDT Baltazar Childers MD [facility] CPT-95538 Level 3 Est. Patient 10:10:11 CDT Baltazar Childers MD [facility] CPT-38843 Level 3 Est. Patient 14:07:50 CDT Baltazar Childers MD [facility] CPT-16177 Level 4 Est. Patient 12:26:10 HR INTERN Baltazar Childers MD [facility] CPT-18757 Level 4 Est. Patient 14:45:38 CDT Baltazar Childers MD [facility] CPT-92475 Level 4 New Patient 12:30:48 CDT Baltazar hinton MD [facility] Procedures Code Procedure Name Date Entry Date Standard Desc ription CPT-25192 Lipid - LAB USE ONLY 17:39:15 HR INTERN 9 CPT-18307 HGBA1C - LAB USE ONLY 17:39:15 HR INTERN CPT-11731 CMP - LAB USE ONLY 17:39:14 HR INTERN CPT-00825 Venipuncture Draw Fee 17:39:14 HR INTERN CPT-89226 First Vx - Ix admin via ID I M or jet injects without counseling by physician 16:55:17 HR INTERN CPT-05031 Fluzone Quadrivalent Intramuscular Suspe nsion 0.5 ML 16:55:17 HR INTERN CPT-78646 Renal Panel - LAB USE ONLY 17:39:20 CDT 201 10/31/07 CPT-26329 CBC - LAB USE ONLY 17:39:20 CDT CPT-86347 Venipuncture Draw Fee 17:39:20 CDT CPT-57117 Venipuncture Draw Fee 14:33:30 CDT CPT-00840 Renal Panel - LAB USE ONLY 14:33:30 CDT 201 10/31/07 CPT-52610 CBC - LAB USE ONLY 14:33:29 CDT CPT-95461 Venipuncture Draw Fee 14:50:21 HR INTERN CPT-13586 Immunization Single Admin 17:35:35 CDT 2014 CPT-63500 Fluzone Quadrivalent preservative free ( >=3yrs.) 17:35:35 CDT CPT-14406 Venipuncture Draw Fee 12:10:27 HR INTERN CPT-31018 Fluzone Quadrivalent Intramuscular Suspe nsion 0.5 ML 10:49:13 CDT CPT-16693 First Vx Component - Ix admi n via ID IM or jet inj without physician counseling 15:17:19 HR INTERN CPT-54171 Pneumovax 23 15:17:19 HR INTERN CPT-07118 Pneumovax 14:52:45 HR INTERN CPT-98321 Venipuncture Draw Fee 14:06:30 HR INTERN CPT-000 Give Appropriate Flu Vaccine 14:18:34 HR INTERN 2 CPT-76111 Administration single or combination vac cine inc oral 14:46:00 HR INTERN CPT-56810 Influenza split virus > age 3 14:46:00 HR INTERN CPT-OV Office Visit 19:13:16 CDT CPT-75815 Zostavax 18:41:56 CDT CPT-68104 Administration single or combination vac cine inc oral 12:56:39 CDT CPT-90461 Zoster Vaccine (Zostavax) 12:56:39 CDT 2012 CPT-05933 Venipuncture Draw Fee 10:58:57 CDT CPT-69022 Sono pelvis non OB uterus ovaries cervix 17:45:04 CDT CPT-05728 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
--- OUTSIDE RECORDS SUMMARY | 2019-10-27 12:04 | XMS REPORT | Clinical Summary ---
Author Author Admin, Elba Lance [facility] Address Unknown Phone Unavailable Allergies, Adverse [...] of status migrainosus HYPERLIPIDEMIA 272.4 Active Baltazar Cihlders MD Other and unspecified hyperlipidemia CARPAL TUNNEL SYNDROME 354.0 Active Baltazar silverman MD Carpal tunnel syndrome OBESITY 278.00 Inactive Batlazar Childers MD Obesity, unspecified Morbid obesity 278.01 Active Baltazar Childers MD Morbid obesity ADD 314.00 Active Baltazar Childers MD Attention deficit disorder of childhood without mention of hyperactivity DECREASED LIBIDO 799.81 Active Baltazar Wayne Decreased libido COLON POLYPS 211.3 Resolved 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 Thomas 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 Benign neoplasm of colon PERIPHERAL NEUROPATHY 356.9 [...] three times a day 201 12/03/26 GABAPENTIN 58104421317 No Longer Active Baltazar Childers MD Activ e LISINOPRIL 20 MG ORAL TABLET 1 tablet by mouth daily at night 2016 LISINOPRIL 97424248039 Active Baltazar Childers MD Active ZITHROMAX Z-ISAIAS 250 MG ORAL TABLET Take two tablets to day and then 1 tablet daily for 4 days AZITHROMYCIN 36057550510 No Longer A ctive Baltazar Childers MD Active LANTUS SOLOSTAR 100 UNIT/ML SUBCUTANEOUS SOLUTION PEN- INJECTOR 30 units SC daily INSULIN GLARGINE 31485458087 Active Baltazar Childers MD Active AMLODIPINE BESYLATE 5 MG ORAL TABLET 1 tab daily for HTN AMLODIPINE BESYLATE 85068052576 Active Baltazar Childers MD Active SYNTHROID 100 MCG ORAL TABLET 1 tablet by mouth daily LEVOTHYROXINE SODIUM 98637727309 Active Baltazar Childers MD Active GLIPIZIDE 10 MG ORAL TABLET take 2 tablets twice daily GLIPIZIDE 24145808079 Active Baltazar Childers MD Active SUCRALFATE 1 GM ORAL TABLET 1 four times a day to coat the stoma ch SUCRALFATE 71931030549 No Longer Active Baltazar Childers MD Active PEN NEEDLES 31G X 6 MM use 1 daily INSULIN PEN NE EDLE 93809817157 Active KENDALL Juarez Active CELINA POWERSOSTNAKITA 300 UNIT/ML SUBCUTANEOUS SOLUTION PEN- INJECTOR 10 units SC daily INSULIN GLARGINE 53353140852 No Longer Active Rola Godinez RMA Active NAPROXEN SODIUM 220 MG ORAL TABLET 1 three times a day as needed NAPROXEN SODIUM 39263827875 No Longer Active Baltazar Childers MD Active ATORVASTATIN CALCIUM 20 MG ORAL TABLET Take 1 tab daily ATORVASTATIN CALCIUM 63578046465 Active Baltazar Childers MD A ctive FUROSEMIDE 40 MG ORAL TABLET Take one by mouth daily FUROSEMIDE 24202680550 Active Jessy Arellano LPN Active LISINOPRIL 20 MG ORAL TABLET Take one by mouth daily at bedtime LISINOPRIL 86066514578 No Longer Active Baltazar Childers MD Active ONETOUCH ULTRA BLUE IN VITRO STRIP Test twice a day 07/11/11 GLUCOSE BLOOD 02869497746 No Longer Active Baltazar Childers MD Acti ve TRUEPLUS LANCETS 33G Test twice a day LANCETS 1511616 0140 Active KENDALL Juarez Active TRUEDRAW LANCING DEVICE Test twice a day LANCET DEVICES 36648034555 Active Baltazar Childers MD Active TRUETRACK TEST IN VITRO STRIP Test twice a day GLUCOSE BLOOD 24986788286 Active KENDALL Juarez Active TRUETRACK BLOOD GLUCOSE w/Device KIT Test twice a day BLOOD GLUCOSE MONITORING SUPPL 28983240062 Active Baltazar Childers MD Activ e HYDROCODONE-ACETAMINOPHEN 7.5-325 MG ORAL TABLET Take 1 tab every 6-8 hours PRN HYDROCODONE-ACETAMINOPHEN 53792041249 Active Baltazar Nickerson MD Active NORTRIPTYLINE HCL 50 MG ORAL CAPSULE 1 every night for neuropathy 2 NORTRIPTYLINE HCL 17312448422 Active Baltazar Childers MD Acti ve GABAPENTIN 300 MG ORAL CAPSULE 1 po qd x 2 days, then 1 po BID x 2 days, then 1 po TID GABAPENTIN 29890261512 No Longer Active Baltazar Childers MD Active TRAMADOL HCL 50 MG ORAL TABLET 1 twice a day as needed for pain 201 07/27/28 TRAMADOL HCL 38495965948 Active Baltazar Childers MD Active NAPROXEN 500 MG ORAL TABLET 1 tablet by mouth twice daily NAPROXEN 82708245111 No Longer Active Baltazar Childers MD Active PROAIR HFA 108 (90 Base) MCG/ACT INHALATION AEROSOL SO LUTION 2 puffs four times a day as needed ALBUTEROL SULFATE 52507442983 Active Paul Childers MD Active DEPO-TESTOSTERONE 200 MG/ML INTRAMUSCULAR SOLUTION as directed TESTOSTERONE CYPIONATE 59372290153 No Longer Active Baltazar Childers MD Active LIPITOR 20 MG ORAL TABLET Take one by mouth daily in evening ATORVASTATIN CALCIUM 07909808831 No Longer Active Baltazar Childers MD Active CRESTOR 10 MG ORAL TABLET 1 by mouth every day ROSUVASTATIN CALCIUM 87140113434 No Longer Active Baltazar Childers MD Active PHENTERMINE HCL 37.5 MG ORAL TABLET Take one by mouth daily PHENTERMINE HCL 46963577892 No Longer Active Baltazar Childers MD Ac tive ROBAXIN-750 750 MG ORAL TABLET Take one by mouth daily METHOCARBAMOL 47690383329 Active Baltazar Childers MD Active TIZANIDINE HCL 4 MG ORAL TABLET 1 daily as needed for muscle spa sm TIZANIDINE HCL 24451089799 No Longer Active Dawna Salazar RN Active [id number] 50-325-40 MG ORAL TABLET 1 fo ur times a day as needed for heacache [id number] 20248174156 Active Baltazar Childers MD Active SUMATRIPTAN SUCCINATE 100 MG ORAL TABLET 1 tablet by m outh at onset of migraine as needed SUMATRIPTAN SUCCINATE 76027726902 Active Bertha Vazquez LPN Active LORATADINE 10 MG ORAL TABLET Take one by mouth daily LORATADINE 86943288168 Active Baltazar Childers MD Active OMEPRAZOLE 20 MG ORAL CAPSULE DELAYED RELEASE Take one by mouth jostin ly OMEPRAZOLE 51388117744 Active Baltazar Childers MD Active HYDROXYZINE HCL 25 MG ORAL TABLET Take one by mouth daily HYDROXYZINE HCL 09210457751 Active Baltazar Childers MD Active ALPRAZOLAM 1 MG ORAL TABLET 1 [facility] 63850766421 Active Baltazar Childers MD Active METFORMIN HCL 1000 MG ORAL TABLET Take one by mouth twice daily METFORMIN HCL 91917239783 Active Baltazar Childers MD Active TIZANIDINE HCL 4 MG ORAL TABLET 1 daily as needed for muscle spa sm TIZANIDINE HCL 4 MG ORAL TABLET 927006 TIZANIDINE HCL Inactive PHENTERMINE HCL 37.5 MG ORAL TABLET Take one by mouth daily PHENTERMINE HCL 37.5 MG ORAL TABLET 883926 PHENTERMINE HCL Inac tive CRESTOR 10 MG ORAL TABLET 1 by mouth every day CRESTOR 10 MG ORAL TABLET 948983 ROSUVASTATIN CALCIUM Inactive LIPITOR 20 MG ORAL TABLET Take one by mouth daily in evening LIPITOR 20 MG ORAL TABLET 480992 ATORVASTATIN CALCIUM Inactive DEPO-TESTOSTERONE 200 MG/ML INTRAMUSCULAR SOLUTION as directed DEPO-TESTOSTERONE 200 MG/ML INTRAMUSCULAR SOLUTION 812181 RUFINO TOSTERONE CYPIONATE Inactive NAPROXEN 500 MG ORAL TABLET 1 tablet by mouth twice daily NAPROXEN 500 MG ORAL TABLET 650589 NAPROXEN Inactive GABAPENTIN 300 MG ORAL CAPSULE 1 po qd x 2 days, then 1 po BID x 2 days, then 1 po TID GABAPENTIN 300 MG ORAL CAPSULE 325062 GABAP ENTIN Inactive ONETOUCH ULTRA BLUE IN VITRO STRIP Test twice a day 07/11/11 ONETOUCH ULTRA BLUE IN VITRO STRIP GLUCOSE BLOOD Inact amie NAPROXEN SODIUM 220 MG ORAL TABLET 1 three times a day as needed NAPROXEN SODIUM 220 MG ORAL TABLET 988610 NAPROXEN SODI UM Inactive TOUJEO SOLOSTAR 300 UNIT/ML SUBCUTANEOUS SOLUTION PEN- INJECTOR 10 units SC daily TOUJEO SOLOSTAR 300 UNIT/ML SUBCUTANEOUS SOLUTION PEN-INJECTOR INSULIN GLARGINE Inactive SUCRALFATE 1 GM ORAL TABLET 1 four times a day to coat the stoma ch SUCRALFATE 1 GM ORAL TABLET 256145 SUCRALFATE Inac tive GABAPENTIN 300 MG ORAL CAPSULE 1 three times a day 201 12/03/26 GABAPENTIN 300 MG ORAL CAPSULE 403155 GABAPENTIN Inactive ZITHROMAX Z-ISAIAS 250 MG ORAL TABLET Take two tablets to day and then 1 tablet daily for 4 days ZITHROMAX Z-ISAIAS 250 MG ORAL TAB LET 689589 AZITHROMYCIN Inactive Immunizations Vaccine Administration Date Value Standard Floyd cription pneumococcal immunization administered Pneumovax 23 [CVX33] pneumococcal polysaccharide vaccine, 23 valent Seasonal influenza vaccine, injectable, containing preservative, for > 3 years old (Afluria, FluLaval, Fluzone, Fluvirin, Fluarix, Agriflu(>= 18 yo)) Fluzone (>3 yrs.) [[id number]] Influenza, seasonal, inject able Seasonal influenza vaccine, injectable, containing preservative, for > 3 years old (Afluria, FluLaval, Fluzone, Fluvirin, Fluarix, Agriflu(>= 18 yo)) Fluzone (>3 yrs.) [JFP336] Influenza, seasonal, inject able Vital Signs Date Name Value Unit Range Description blood pressure, diastolic 77 mm[Hg] BP salmeron [...] weight E&M 239 [lb_av] Weight Measure d Diagnostic Results Date Name Value Unit Range Description Lab Report: Basic Metabolic Panel - Chem istry sodium, serum 139 mmol/L 051-371 6890/10/03 potassium, serum 4.7 mmol/L 3.5-5.2 chloride, serum 98 mmol/L 98-107 carbon dioxide, venous blood 28.7 mmol/L 21.0-32 .0 blood glucose 218 mg/dL 65-110 calcium, serum 9.8 mg/dL 8.5-10.1 urea nitrogen, blood 19 mg/dL 7-18 creatinine, serum 1.68 mg/dL 0.60-1.30 Lab Report: Basic Metabolic Panel, HGBA1 C - Chemistry sodium, serum 143 mmol/L 029-083 3347/06/19 potassium, serum 5.9 mmol/L 3.5-5.2 chloride, serum 105 mmol/L 98-107 carbon dioxide, venous blood 30.2 mmol/L 21.0-32 .0 blood glucose 189 mg/dL 65-110 calcium, serum 9.7 mg/dL 8.5-10.1 urea nitrogen, blood 37 mg/dL 7-18 creatinine, serum 2.11 mg/dL 0.55-1.30 hemoglobin A1C, blood, as % of total hemoglobin 8.2 % 4.3-6.0 Lab Report: CBC, Renal Panel - Chemistry sodium, serum 142 mmol/L 589-692 3425/08/11 potassium, serum 4.8 mmol/L 3.5-5.2 chloride, serum [...] count 304 10^3/MM^3 10*3/mm3 142-424 Lab Report: HEMOGLOBIN A1c, MicroAlb Ran dom [...] (L) - Chemistry cholesterol, serum 209 mg/dL 463-077 5957/12/27 triglyceride, serum, fasting 329 mg/dL 30-200 HDL cholesterol, serum 56 mg/dL 32-60 LDL cholesterol, serum 87 mg/dL 0-130 TSH 3.60 m[iU]/mL 0.36-3.74 Encounters Code Encounter Date Provider Facility CPT-46181 Level 4 Est. Patient 16:21:19 SAT TUTOR Baltazar Childers MD [facility] CPT-51104 Level 4 Est. Patient 12:25:11 CDT Baltazar Childers MD [facility]-05155 Level 4 Est. Patient 14:22:31 CDT Baltazar Childers MD [facility]-28058 Level 4 Est. Patient 15:44:38 CDT Shonnajean Parker APRN [facility]-70480 Level 4 Est. Patient 11:34:17 CDT Baltazar Childers MD [facility]-21570 Level 3 Est. Patient 16:40:40 CDT Baltazar Childers MD [facility]-80860 Level 4 Est. Patient 10:41:24 CDT Baltazar Childers MD [facility]-40067 Level 4 Est. Patient 16:01:48 CDT Baltazar Childers MD [facility]-65685 Level 4 Est. Patient 16:54:07 SAT TUTOR Baltazar Childers MD [facility]-76057 Level 4 Est. Patient 15:42:12 CDT Baltazar Childers MD [facility] CPT-07345 Level 4 Est. Patient 11:29:55 CDT Baltazar Childers MD [facility]-92273 Level 4 Est. Patient 14:15:19 CDT Baltazar Childers MD [facility]-36182 Level 4 Est. Patient 12:20:13 CDT Baltazar Childers MD [facility]-97377 Level 4 Est. Patient 14:52:45 SAT TUTOR Baltazar Childers MD [facility]-49228 Level 4 Est. Patient 14:18:34 SAT TUTOR Baltazar Childers MD [facility]-34251 Level 4 Est. Patient 15:18:29 CDT Baltazar Childers MD [facility]-88974 Level 3 Est. Patient 12:45:34 CDT Baltazar Childers MD [facility] CPT-13805 Level 3 Est. Patient 10:10:11 CDT Baltazar Childers MD [facility] CPT-35735 Level 3 Est. Patient 14:07:50 CDT Baltazar Childers MD [facility] CPT-46218 Level 4 Est. Patient 12:26:10 SAT TUTOR Baltazar Childers MD [facility] CPT-57062 Level 4 Est. Patient 14:45:38 CDT Baltazar Childers MD [facility] CPT-51363 Level 4 New Patient 12:30:48 CDT Baltazar hinton MD [facility] Procedures Code Procedure Name Date Entry Date Standard Desc ription CPT-08799 First Vx - Ix admin via ID I M or jet injects without counseling by physician 13:08:59 CDT CPT-65721 Fluzone Quadrivalent Intramuscular Suspe nsion 0.5 ML 13:08:59 CDT CPT-14000 Venipuncture Draw Fee 12:04:12 CDT CPT-24021 Lipid - LAB USE ONLY 17:39:15 SAT TUTOR 9 CPT-77932 HGBA1C - LAB USE ONLY 17:39:15 SAT TUTOR CPT-43333 CMP - LAB USE ONLY 17:39:14 SAT TUTOR CPT-15533 Venipuncture Draw Fee 17:39:14 SAT TUTOR CPT-60282 First Vx - Ix admin via ID I M or jet injects without counseling by physician 16:55:17 SAT TUTOR CPT-51666 Fluzone Quadrivalent Intramuscular Suspe nsion 0.5 ML 16:55:17 SAT TUTOR CPT-09211 Renal Panel - LAB USE ONLY 17:39:20 CDT 201 10/31/07 CPT-47232 CBC - LAB USE ONLY 17:39:20 CDT CPT-87721 Venipuncture Draw Fee 17:39:20 CDT CPT-20780 Venipuncture Draw Fee 14:33:30 CDT CPT-14591 Renal Panel - LAB USE ONLY 14:33:30 CDT 201 10/31/07 CPT-09336 CBC - LAB USE ONLY 14:33:29 CDT CPT-79284 Venipuncture Draw Fee 14:50:21 SAT TUTOR CPT-50872 Immunization Single Admin 17:35:35 CDT 2014 CPT-71343 Fluzone Quadrivalent preservative free ( >=3yrs.) 17:35:35 CDT CPT-83031 Venipuncture Draw Fee 12:10:27 SAT TUTOR CPT-61623 Fluzone Quadrivalent Intramuscular Suspe nsion 0.5 ML 10:49:13 CDT CPT-49801 First Vx Component - Ix admi n via ID IM or jet inj without physician counseling 15:17:19 SAT TUTOR CPT-99932 Pneumovax 23 15:17:19 SAT TUTOR CPT-78407 Pneumovax 14:52:45 SAT TUTOR CPT-03771 Venipuncture Draw Fee 14:06:30 SAT TUTOR CPT-000 Give Appropriate Flu Vaccine 14:18:34 SAT TUTOR 2 CPT-37188 Administration single or combination vac cine inc oral 14:46:00 SAT TUTOR CPT-13901 Influenza split virus > age 3 14:46:00 SAT TUTOR CPT-OV Office Visit 19:13:16 CDT CPT-39750 Zostavax 18:41:56 CDT CPT-90482 Administration single or combination vac cine inc oral 12:56:39 CDT CPT-90302 Zoster Vaccine (Zostavax) 12:56:39 CDT 2012 CPT-81958 Venipuncture Draw Fee 10:58:57 CDT CPT-71437 Sono pelvis non OB uterus ovaries cervix 17:45:04 CDT CPT-72185 Sono retroperitoneal complete kidneys an d bladder 17:14:36 CDT CPT-OV Office Visit 14:59:38 SAT TUTOR CPT-J1070 Depo Testosterone 100 mg 14:50:13 CDT 03/05 CPT-26670 Abx/Therapy Injection 14:50:13 CDT CPT-61324 Administration single or combination vac cine inc oral 14:34:43 CDT CPT-06455 Influenza split virus > age 3 14:34:43 CDT CPT-J1070 Depo Testosterone 100 mg 17:37:13 CDT 01/11 CPT-03560 Abx/Therapy Injection 17:37:13 CDT CPT-84293 Venipuncture Draw Fee 16:30:13 CDT CPT-30026 Venipuncture Draw Fee 16:29:43 CDT CPT-J1070 Depo Testosterone 100 mg 14:45:38 CDT 01/11
--- OUTSIDE RECORDS SUMMARY | 2019-10-27 12:05 | XMS REPORT | Clinical Summary ---
Author Author Abhishek, Elba Lance [facility] Address Unknown Phone Unavailable Allergies, Adverse Reactions, 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 CORONER Benign neoplasm of colon PERIPHERAL NEUROPATHY 356.9 [...] ronary atherosclerosis of unspecified type of vessel, quileute or graft OTH NONSPC ABN FINDNG RAD&OTH [...] Test twice a day GLUCO SE BLOOD 07408725030 No Longer Active Baltazar Childers MD Active TRUEPLUS LANCETS 33G MISC Test twice a day LANCET S 43104764312 Active Baltazar Childers MD Active TRUEDRAW LANCING DEVICE MISC Test twice a day L ANCET DEVICES 43213502300 Active Baltazar Childers MD Active TRUETRACK TEST STRP Test twice a day GLUCOSE BLOO D 30332211729 Active Baltazar Childers MD Active TRUETRACK BLOOD GLUCOSE W/DEVICE KIT Test twice a day BLOOD GLUCOSE MONITORING SUPPL 65585839755 Active Baltazar Childers MD Activ e HYDROCODONE-ACETAMINOPHEN 7.5-325 MG TABS Take 1 tab every 6-8 hour s PRN HYDROCODONE-ACETAMINOPHEN 86443976251 Active Gato Rae MD Active NORTRIPTYLINE HCL 50 MG CAPS 1 every night for neuropathy 4 NORTRIPTYLINE HCL 13411624141 Active Baltazar Childers MD Acti ve GABAPENTIN 300 MG CAPS 1 three times a day GABAPE NTIN 35339955524 Active Baltazar Childers MD Active GABAPENTIN 300 MG CAPS 1 po qd x 2 days, then 1 po BID x 2 d ays, then 1 po TID GABAPENTIN 71903683666 No Longer Active Baltazar silverman MD Active TRAMADOL HCL 50 MG TABS 1 twice a day as needed for pain TRAMADOL HCL 40121915678 Active Baltazar Childers MD Active NAPROXEN 500 MG TABS 1 tablet by mouth twice daily NAPROXEN 22152488300 No Longer Active Baltazar Childers MD Active PROAIR HFA 108 (90 BASE) MCG/ACT AERS 2 puffs four times a d ay as needed ALBUTEROL SULFATE 44702502873 Active Baltazar Childers MD Active DEPO-TESTOSTERONE 200 MG/ML OIL as directed RUFINO TOSTERONE CYPIONATE 71304491226 No Longer Active Baltazar Childers MD Active LIPITOR 20 MG TABS Take one by mouth daily in evening ATORVASTATIN CALCIUM 19804286590 No Longer Active Baltazar Childers MD Activ e CRESTOR 10 MG TABS 1 by mouth every day R OSUVASTATIN CALCIUM 63965204393 No Longer Active Baltazar Childers MD Activ e PHENTERMINE HCL 37.5 MG TABS Take one by mouth daily 2 PHENTERMINE HCL 11513738815 No Longer Active Baltazar Childers MD Activ e ROBAXIN-750 750 MG TABS Take one by mouth daily ME THOCARBAMOL 55968258842 Active Baltazar Childers MD Active TIZANIDINE HCL 4 MG TABS 1 daily as needed for muscle spasm 2011 TIZANIDINE HCL 37399777190 No Longer Active Dawna Salazar RN Active AGRVKUJZRV-WUQS-SERIDYVN 50-325-40 MG TABS 1 four time s a day as needed for heacache QOITJBUABF-LJIU-XSXPIUYQ 11153958854 Active Baltazar Childers MD Active SUMATRIPTAN SUCCINATE 100 MG TABS 1 tablet by mouth at onset of migraine as needed SUMATRIPTAN SUCCINATE 53439131836 Active Baltazar bynum MD Active LORATADINE 10 MG TABS Take one by mouth daily LORATADINE 15115764455 Active Baltazar Childers MD Active FUROSEMIDE 40 MG TABS Take one by mouth daily FUROSEMIDE 69518509009 Active Baltazar Childers MD Active LISINOPRIL 20 MG TABS Take one by mouth daily at bedtime LISINOPRIL 45765335228 Active Baltazar Childers MD Active OMEPRAZOLE 20 MG CPDR Take one by mouth daily OMEPRAZOLE 49719763170 Active Baltazar Childers MD Active HYDROXYZINE HCL 25 MG TABS Take one by mouth daily HYDROXYZINE HCL 25794687824 Active Baltazar Childers MD Active GLIPIZIDE 10 MG TABS 1 tablet by mouth twice daily GLIPIZIDE 83596268197 Active Baltazar Childers MD Active ALPRAZOLAM 1 MG TABS 1 tablet by mouth daily at bedtime for restles s leg ALPRAZOLAM 94065727743 Active Baltazar Childers MD Active METFORMIN HCL 1000 MG TABS Take one by mouth twice daily METFORMIN HCL 23630099273 Active Baltazar Childers MD Active TIZANIDINE HCL 4 MG TABS 1 daily as needed for muscle spasm 2011 TIZANIDINE HCL 4 MG TABS 241711 TIZANIDINE HCL Inactiv e PHENTERMINE HCL 37.5 MG TABS Take one by mouth daily 2 PHENTERMINE HCL 37.5 MG TABS 479941 PHENTERMINE HCL Inactive CRESTOR 10 MG TABS 1 by mouth every day C RESTOR 10 MG TABS ROSUVASTATIN CALCIUM Inactive LIPITOR 20 MG TABS Take one by mouth daily in evening LIPITOR 20 MG TABS 721624 ATORVASTATIN CALCIUM Inactive DEPO-TESTOSTERONE 200 MG/ML OIL as directed 8 DEPO-TESTOSTERONE 200 MG/ML OIL 614750 TESTOSTERONE CYPIONATE Inactive NAPROXEN 500 MG TABS 1 tablet by mouth twice daily 201 07/27/22 NAPROXEN 500 MG TABS 862673 NAPROXEN Inactive GABAPENTIN 300 MG CAPS 1 po qd x 2 days, then 1 po BID x 2 d ays, then 1 po TID GABAPENTIN 300 MG CAPS 601453 GABAPENTIN Inact amie ONETOUCH ULTRA BLUE STRP Test twice a day ONETOUCH ULTRA BLUE STRP GLUCOSE BLOOD Inactive Immunizations Vaccine Administration Date Value Standard Floyd cription pneumococcal immunization administered Pneumovax 23 [CVX33] pneumococcal polysaccharide vaccine, 23 valent Seasonal influenza vaccine, injectable, containing preservative, for > 3 years old (Afluria, FluLaval, Fluzone, Fluvirin, Fluarix, Agriflu(>= 18 yo)) Fluzone (>3 yrs.) [QXE059] Influenza, seasonal, inject able Seasonal influenza vaccine, injectable, containing preservative, for > 3 years old (Afluria, FluLaval, Fluzone, Fluvirin, Fluarix, Agriflu(>= 18 yo)) Fluzone (>3 yrs.) [[id number]] Influenza, seasonal, inject able Vital Signs Date [...] - Chem istry sodium, serum 140 mmol/L 337-586 2099/05/05 potassium, serum 4.9 mmol/L 3.5-5.2 chloride, serum [...] Panel - Chemistry sodium, serum 139 mmol/L 984-414 9740/01/20 potassium, serum 5.3 mmol/L 3.5-5.2 chloride, serum [...] mg/g mg/g{creat} 0-29 cholesterol, serum 319 mg/dL 315-401 0309/08/21 triglyceride, serum, fasting 546 mg/dL 30-200 HDL cholesterol, serum 39 mg/dL 32-96 LDL cholesterol, serum 167.00 mg/dL 5.00-130.00 hemoglobin A1C, blood, as % of total hemoglobin 7.7 % 4.3-6.0 sodium, serum 138 mmol/L 941-475 5031/08/21 potassium, serum 4.3 mmol/L 3.5-5.2 chloride, serum [...] 0-19 Encounters Code Encounter Date Provider Facility CPT-43222 Level 4 Est. Patient 11:29:55 CDT Baltazar Childers MD [facility] CPT-35908 Level 4 Est. Patient 14:15:19 CDT Baltazar Childers MD [facility] CPT-59477 Level 4 Est. Patient 12:20:13 CDT Baltazar Childers MD [facility] CPT-76413 Level 4 Est. Patient 14:52:45 TRADE SALES ASSISTANT Baltazar Childers MD [facility] CPT-87336 Level 4 Est. Patient 14:18:34 TRADE SALES ASSISTANT Baltazar Childers MD [facility] CPT-99645 Level 4 Est. Patient 15:18:29 CDT Baltazar Childers MD [facility] CPT-95978 Level 3 Est. Patient 12:45:34 CDT Baltazar Childers MD [facility] CPT-64326 Level 3 Est. Patient 10:10:11 CDT Baltazar Childers MD [facility] CPT-17202 Level 3 Est. Patient 14:07:50 CDT Baltazar Childers MD [facility] CPT-71367 Level 4 Est. Patient 12:26:10 TRADE SALES ASSISTANT Baltazar Childers MD [facility] CPT-95161 Level 4 Est. Patient 14:45:38 CDT Baltazar Childers MD [facility] CPT-70823 Level 4 New Patient 12:30:48 CDT Baltazar hinton MD [facility] Procedures Code Procedure Name Date Entry Date Standard Desc ription CPT-57724 Venipuncture Draw Fee 12:10:27 TRADE SALES ASSISTANT CPT-29246 Fluzone Quadrivalent Intramuscular Suspe nsion 0.5 ML 10:49:13 CDT CPT-99643 First Vx Component - Ix admi n via ID IM or jet inj without physician counseling 15:17:19 TRADE SALES ASSISTANT CPT-27890 Pneumovax 15:17:19 TRADE SALES ASSISTANT CPT-65597 Pneumovax 14:52:45 TRADE SALES ASSISTANT CPT-24074 Venipuncture Draw Fee 14:06:30 TRADE SALES ASSISTANT CPT-000 Give Appropriate Flu Vaccine 14:18:34 TRADE SALES ASSISTANT 2 CPT-87449 Administration single or combination vac cine inc oral 14:46:00 TRADE SALES ASSISTANT CPT-34951 Influenza split virus > age 3 14:46:00 TRADE SALES ASSISTANT CPT-OV Office Visit 19:13:16 CDT CPT-58873 Zostavax 18:41:56 CDT CPT-19172 Administration single or combination vac cine inc oral 12:56:39 CDT CPT-71613 Zoster Vaccine (Zostavax) 12:56:39 CDT 2012 CPT-20066 Venipuncture Draw Fee 10:58:57 CDT CPT-14414 Sono pelvis non OB uterus ovaries cervix 17:45:04 CDT CPT-58523 Sono retroperitoneal complete kidneys an d bladder 17:14:36 CDT CPT-OV Office Visit 14:59:38 TRADE SALES ASSISTANT CPT-J1070 Depo Testosterone 100 mg 14:50:13 CDT 03/05 CPT-77263 Abx/Therapy Injection 14:50:13 CDT CPT-73219 Administration single or combination vac cine inc oral 14:34:43 CDT CPT-28412 Influenza split virus > age 3 14:34:43 CDT CPT-J1070 Depo Testosterone 100 mg 17:37:13 CDT 01/11 CPT-09520 Abx/Therapy Injection 17:37:13 CDT CPT-65743 Venipuncture Draw Fee 16:30:13 CDT CPT-73412 Venipuncture Draw Fee 16:29:43 CDT CPT-J1070 Depo Testosterone 100 mg 14:45:38 CDT 01/11
--- OUTSIDE RECORDS SUMMARY | 2019-10-27 12:05 | XMS REPORT | Clinical Summary ---
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 Benign neoplasm of colon PERIPHERAL NEUROPATHY 356.9 [...] y atherosclerosis of unspecified type of vessel, [place] or graft OTH NONSPC ABN FINDNG RAD&OTH [...] care facility COLON POLYPS ICD-211.3 Inactive Lolis King JOSE Barron Medication List Medication Instructions Start Date Stop Date Generic Name NDC Status Provider Patient Instruction TRUEPLUS LANCETS 33G MISC Test twice a day LANCET S [id number] Active Baltazar Childers MD Active TRUEDRAW LANCING DEVICE MISC Test twice a day L ANCET DEVICES 32845033821 Active Baltazar Childers MD Active TRUETRACK TEST STRP Test twice a day GLUCOSE BLOO D 46216065324 Active Baltazar Childers MD Active TRUETRACK BLOOD GLUCOSE W/DEVICE KIT Test twice a day BLOOD GLUCOSE MONITORING SUPPL 56088296348 Active Bella Suarez 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 Active HYDROCODONE-ACETAMINOPHEN 7.5-325 MG TABS Take 1 tab every 6-8 hour s PRN HYDROCODONE-ACETAMINOPHEN 87474576688 Active Baltazar Childers MD Active NORTRIPTYLINE HCL 50 MG CAPS 1 every night for neuropathy 4 NORTRIPTYLINE HCL 85018580507 Active Baltazar Childers MD Acti ve GABAPENTIN 300 MG CAPS 1 three times a day GABAPE NTIN 61225291548 Active Baltazar Childers MD Active GABAPENTIN 300 MG CAPS 1 po qd x 2 days, then 1 po BID x 2 d ays, then 1 po TID GABAPENTIN 85582391024 No Longer Active Baltazar silverman MD Active TRAMADOL HCL 50 MG TABS 1 twice a day as needed for pain TRAMADOL HCL 81684164629 Active Baltazar Childers MD Active NAPROXEN 500 MG TABS 1 tablet by mouth twice daily NAPROXEN 04367129386 No Longer Active Baltazar Childers MD Active PROAIR HFA 108 (90 BASE) MCG/ACT AERS 2 puffs four times a d ay as needed ALBUTEROL SULFATE 06334278718 Active Baltazar Childers MD Active DEPO-TESTOSTERONE 200 MG/ML OIL as directed RUFINO TOSTERONE CYPIONATE 22863521598 No Longer Active Baltazar Childers MD Active LIPITOR 20 MG TABS Take one by mouth daily in evening ATORVASTATIN CALCIUM 39928134949 No Longer Active Baltazar Childers MD Activ e CRESTOR 10 MG TABS 1 by mouth every day R OSUVASTATIN CALCIUM 09585021614 No Longer Active Baltazar Childers MD Activ e PHENTERMINE HCL 37.5 MG TABS Take one by mouth daily 2 PHENTERMINE HCL 66768926117 No Longer Active Baltazar Childers MD Activ e ROBAXIN-750 750 MG TABS Take one by mouth daily ME THOCARBAMOL 51196632122 Active Baltazar Childers MD Active TIZANIDINE HCL 4 MG TABS 1 daily as needed for muscle spasm 2011 TIZANIDINE HCL 44746375391 No Longer Active Dawna Salazar RN Active Skin ScanUCH ULTRA BLUE STRP Test twice a day GLUCO SE BLOOD 50692855695 Active Baltazar Childers MD Active [id number] 50-325-40 MG TABS 1 four time s a day as needed for heacache [id number] 84477363624 Active Baltazar Childers MD Active SUMATRIPTAN SUCCINATE 100 MG TABS 1 tablet by mouth at onset of migraine as needed SUMATRIPTAN SUCCINATE 77185052560 Active Baltazar barron MD Active LORATADINE 10 MG TABS Take one by mouth daily LORATADINE 83480081184 Active Baltazar Childers MD Active FUROSEMIDE 40 MG TABS Take one by mouth daily FUROSEMIDE 90138678582 Active Baltazar Childers MD Active LISINOPRIL 20 MG TABS Take one by mouth daily at bedtime LISINOPRIL 99530054247 Active Baltazar Childers MD Active OMEPRAZOLE 20 MG CPDR Take one by mouth daily OMEPRAZOLE 98158070065 Active Baltazar Childers MD Active HYDROXYZINE HCL 25 MG TABS Take one by mouth daily HYDROXYZINE HCL 32067779246 Active Baltazar Childers MD Active GLIPIZIDE 10 MG TABS 1 tablet by mouth twice daily GLIPIZIDE 29778466913 Active Baltazar Childers MD Active ALPRAZOLAM 1 MG TABS 1 tablet by mouth daily at bedtime for restles s leg ALPRAZOLAM 24340365363 Active Baltazar Childers MD Active METFORMIN HCL 1000 MG TABS Take one by mouth twice daily METFORMIN HCL 57590227151 Active Baltazar Childers MD Active TIZANIDINE HCL 4 MG TABS 1 daily as needed for muscle spasm 2011 TIZANIDINE HCL 4 MG TABS 994370 TIZANIDINE HCL Inactiv e PHENTERMINE HCL 37.5 MG TABS Take one by mouth daily 2 PHENTERMINE HCL 37.5 MG TABS 011863 PHENTERMINE HCL Inactive CRESTOR 10 MG TABS 1 by mouth every day C RESTOR 10 MG TABS ROSUVASTATIN CALCIUM Inactive LIPITOR 20 MG TABS Take one by mouth daily in evening LIPITOR 20 MG TABS 508408 ATORVASTATIN CALCIUM Inactive DEPO-TESTOSTERONE 200 MG/ML OIL as directed 8 DEPO-TESTOSTERONE 200 MG/ML OIL 743424 TESTOSTERONE CYPIONATE Inactive NAPROXEN 500 MG TABS 1 tablet by mouth twice daily 201 07/27/22 NAPROXEN 500 MG TABS 656881 NAPROXEN Inactive GABAPENTIN 300 MG CAPS 1 po qd x 2 days, then 1 po BID x 2 d ays, then 1 po TID GABAPENTIN 300 MG CAPS 338697 GABAPENTIN Inact amie Immunizations Vaccine Administration Date Value Standard Floyd cription pneumococcal immunization administered Pneumovax 23 [CVX33] pneumococcal polysaccharide vaccine, 23 valent Seasonal influenza vaccine, injectable, containing preservative, for > 3 years old (Afluria, FluLaval, Fluzone, Fluvirin, Fluarix, Agriflu(>= 18 yo)) Fluzone (>3 yrs.) [[id number]] Influenza, seasonal, inject able Seasonal influenza vaccine, injectable, containing preservative, for > 3 years old (Afluria, FluLaval, Fluzone, Fluvirin, Fluarix, Agriflu(>= 18 yo)) Fluzone (>3 yrs.) [[id number]] Influenza, seasonal, inject able Vital Signs Date [...] Panel - Chemistry sodium, serum 139 mmol/L 881-522 4908/01/20 potassium, serum 5.3 mmol/L 3.5-5.2 chloride, serum [...] mg/g mg/g{creat} 0-29 cholesterol, serum 319 mg/dL 709-936 6030/08/21 triglyceride, serum, fasting 546 mg/dL 30-200 HDL cholesterol, serum 39 mg/dL 32-96 LDL cholesterol, serum 167.00 mg/dL 5.00-130.00 hemoglobin A1C, blood, as % of total hemoglobin 7.7 % 4.3-6.0 sodium, serum 138 mmol/L 644-260 1273/08/21 potassium, serum 4.3 mmol/L 3.5-5.2 chloride, serum [...] 0-19 Encounters Code Encounter Date Provider Facility CPT-80105 Level 4 Est. Patient 14:15:19 CDT Baltazar Childers MD [facility] CPT-11129 Level 4 Est. Patient 12:20:13 CDT Baltazar Childers MD [facility] CPT-19341 Level 4 Est. Patient 14:52:45 COMPLIANCE FIELD TECHNICIAN Baltazar Childers MD [facility] CPT-94458 Level 4 Est. Patient 14:18:34 COMPLIANCE FIELD TECHNICIAN Baltazar Childers MD [facility] CPT-23228 Level 4 Est. Patient 15:18:29 CDT Baltazar Childers MD [facility] CPT-78258 Level 3 Est. Patient 12:45:34 CDT Baltazar Childers MD [facility] CPT-29589 Level 3 Est. Patient 10:10:11 CDT Baltazar Childers MD [facility] CPT-70918 Level 3 Est. Patient 14:07:50 CDT Baltazar Childers MD [facility] CPT-55080 Level 4 Est. Patient 12:26:10 COMPLIANCE FIELD TECHNICIAN Baltazar Childers MD [facility] CPT-74741 Level 4 Est. Patient 14:45:38 CDT Baltazar Childers MD [facility] CPT-47256 Level 4 New Patient 12:30:48 CDT Baltazar hinton MD [facility] Procedures Code Procedure Name Date Entry Date Standard Desc ription CPT-47433 Venipuncture Draw Fee 12:10:27 COMPLIANCE FIELD TECHNICIAN CPT-09662 Fluzone Quadrivalent Intramuscular Suspe nsion 0.5 ML 10:49:13 CDT CPT-59117 First Vx Component - Ix admi n via ID IM or jet inj without physician counseling 15:17:19 COMPLIANCE FIELD TECHNICIAN CPT-26461 Pneumovax 23 15:17:19 COMPLIANCE FIELD TECHNICIAN CPT-65304 Pneumovax 14:52:45 COMPLIANCE FIELD TECHNICIAN CPT-16391 Venipuncture Draw Fee 14:06:30 COMPLIANCE FIELD TECHNICIAN CPT-000 Give Appropriate Flu Vaccine 14:18:34 COMPLIANCE FIELD TECHNICIAN 2 CPT-65057 Administration single or combination vac cine inc oral 14:46:00 COMPLIANCE FIELD TECHNICIAN CPT-03978 Influenza split virus > age 3 14:46:00 COMPLIANCE FIELD TECHNICIAN CPT-OV Office Visit 19:13:16 CDT CPT-98983 Zostavax 18:41:56 CDT CPT-48119 Administration single or combination vac cine inc oral 12:56:39 CDT CPT-62449 Zoster Vaccine (Zostavax) 12:56:39 CDT 2012 CPT-13292 Venipuncture Draw Fee 10:58:57 CDT CPT-73400 Sono pelvis non OB uterus ovaries cervix 17:45:04 CDT CPT-67194 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
--- OUTSIDE RECORDS SUMMARY | 2019-10-27 12:05 | XMS REPORT | Clinical Summary ---
Author Author Admin, Elba Lance Urban Ladder Address Unknown Phone Unavailable Allergies, Adverse Reactions, 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 [employer] LECT[employer]ER Benign neoplasm of colon PERIPHERAL NEUROPATHY 356.9 [...] stage III 585.3 Active 201 10/25/03 Elba ARGUETA Chronic kidney disease, [...] Carina Tucker LPN Unspecified hypothyroidism Pharyngitis 462 Active Baltazar Childers MD Acute pharyngitis COLON POLYPS ICD-211.3 Inactive Lolis Thomas APR N Medication List Medication Instructions Start Date Stop Date Generic Name NDC Status Provider Patient Instruction LISINOPRIL 20 MG ORAL TABLET 1 tablet by mouth daily at night 2016 LISINOPRIL 11093441513 Active KENDALL Juarez Active ZITHROMAX Z-ISAIAS 250 MG ORAL TABLET Take two tablets to day and then 1 tablet daily for 4 days AZITHROMYCIN 42226682755 No Longer A ctive Baltazar Childers MD Active LANTUS SOLOSTAR 100 UNIT/ML SUBCUTANEOUS SOLUTION PEN- INJECTOR 30 units SC daily INSULIN GLARGINE 35614557836 Active Baltazar Childers MD Active AMLODIPINE BESYLATE 5 MG ORAL TABLET 1 tab daily for HTN AMLODIPINE BESYLATE 02256026771 Active Baltazar Childers MD Active SYNTHROID 100 MCG ORAL TABLET 1 tablet by mouth daily LEVOTHYROXINE SODIUM 04767896512 Active Baltazar Childers MD Active GLIPIZIDE 10 MG ORAL TABLET take 2 tablets twice daily GLIPIZIDE 15663841887 Active Baltazar Childers MD Active SUCRALFATE 1 GM ORAL TABLET 1 four times a day to coat the stoma ch SUCRALFATE 07877275162 No Longer Active Baltazar Childers MD Active PEN NEEDLES 31G X 6 MM use 1 daily INSULIN PEN NE EDLE 45163440169 Active KENADLL Juarez Active TOUJEO SOLOSTAR 300 UNIT/ML SUBCUTANEOUS SOLUTION PEN- INJECTOR 10 units SC daily INSULIN GLARGINE 78458253333 No Longer Active S abigail Herbert RMA Active NAPROXEN SODIUM 220 MG ORAL TABLET 1 three times a day as needed NAPROXEN SODIUM 77249787292 No Longer Active Baltazar Childers MD Active ATORVASTATIN CALCIUM 20 MG ORAL TABLET Take 1 tab daily ATORVASTATIN CALCIUM 62530358469 Active Baltazar Childers MD A ctive FUROSEMIDE 40 MG ORAL TABLET Take one by mouth daily FUROSEMIDE 04467596699 Active Jessy Arellano LPN Active LISINOPRIL 20 MG ORAL TABLET Take one by mouth daily at bedtime LISINOPRIL 33291020151 No Longer Active Baltazar Childers MD Active ONETOUCH ULTRA BLUE IN VITRO STRIP Test twice a day 07/11/11 GLUCOSE BLOOD 88963749407 No Longer Active Baltazar Childers MD Acti ve TRUEPLUS LANCETS 33G Test twice a day LANCETS 0524697 7473 Active KENDALL Juarez Active TRUEDRAW LANCING DEVICE Test twice a day LANCET DEVICES 66609663132 Active Baltazar Childers MD Active TRUETRACK TEST IN VITRO STRIP Test twice a day GLUCOSE BLOOD 79313440942 Active KENDALL Juarez Active TRUETRACK BLOOD GLUCOSE w/Device KIT Test twice a day BLOOD GLUCOSE MONITORING SUPPL 98754722038 Active Baltazar Childers MD Activ e HYDROCODONE-ACETAMINOPHEN 7.5-325 MG ORAL TABLET Take 1 tab every 6-8 hours PRN HYDROCODONE-ACETAMINOPHEN 76281889055 Active Baltazar Nickerson MD Active NORTRIPTYLINE HCL 50 MG ORAL CAPSULE 1 every night for neuropathy 2 NORTRIPTYLINE HCL 04396480870 Active Baltazar Childers MD Acti ve GABAPENTIN 300 MG ORAL CAPSULE 1 three times a day GABAPENTIN 55871416649 Active Baltazar Childers MD Active GABAPENTIN 300 MG ORAL CAPSULE 1 po qd x 2 days, then 1 po BID x 2 days, then 1 po TID GABAPENTIN 14402986342 No Longer Active Baltazar Childers MD Active TRAMADOL HCL 50 MG ORAL TABLET 1 twice a day as needed for pain 201 07/27/28 TRAMADOL HCL 82699728395 Active Baltazar Childers MD Active NAPROXEN 500 MG ORAL TABLET 1 tablet by mouth twice daily NAPROXEN 46059396212 No Longer Active Baltazar Childers MD Active PROAIR HFA 108 (90 Base) MCG/ACT INHALATION AEROSOL SO LUTION 2 puffs four times a day as needed ALBUTEROL SULFATE 99147767408 Active Paul Childers MD Active DEPO-TESTOSTERONE 200 MG/ML INTRAMUSCULAR SOLUTION as directed TESTOSTERONE CYPIONATE 46248395448 No Longer Active Baltazar Childers MD Active LIPITOR 20 MG ORAL TABLET Take one by mouth daily in evening ATORVASTATIN CALCIUM 04662495901 No Longer Active Baltazar Childers MD Active CRESTOR 10 MG ORAL TABLET 1 by mouth every day ROSUVASTATIN CALCIUM 34675893772 No Longer Active Baltazar Childers MD Active PHENTERMINE HCL 37.5 MG ORAL TABLET Take one by mouth daily PHENTERMINE HCL 62567302538 No Longer Active Baltazar Childers MD Ac tive ROBAXIN-750 750 MG ORAL TABLET Take one by mouth daily METHOCARBAMOL 23785645754 Active Baltazar Childers MD Active TIZANIDINE HCL 4 MG ORAL TABLET 1 daily as needed for muscle spa sm TIZANIDINE HCL 21079793903 No Longer Active Dawna Salazar RN Active QHEEPOUYXG-WIND-VTLRVYEO 50-325-40 MG ORAL TABLET 1 fo ur times a day as needed for heacache RRYIQGOBTS-ODNL-DRMYXSVK 02249657312 Active Baltazar Childers MD Active SUMATRIPTAN SUCCINATE 100 MG ORAL TABLET 1 tablet by m outh at onset of migraine as needed SUMATRIPTAN SUCCINATE 57131699409 Active Bertha Vazquez LPN Active LORATADINE 10 MG ORAL TABLET Take one by mouth daily LORATADINE 99214175216 Active Baltazar Childers MD Active OMEPRAZOLE 20 MG ORAL CAPSULE DELAYED RELEASE Take one by mouth jostin ly OMEPRAZOLE 28069309487 Active Baltazar Childers MD Active HYDROXYZINE HCL 25 MG ORAL TABLET Take one by mouth daily HYDROXYZINE HCL 26779301423 Active Baltazar Childers MD Active ALPRAZOLAM 1 MG ORAL TABLET 1 tablet by mouth daily at [facility] ALPRAZOLAM 06480477004 Active Baltazar Childers MD Active METFORMIN HCL 1000 MG ORAL TABLET Take one by mouth twice daily METFORMIN HCL 40461595310 Active Baltazar Childers MD Active TIZANIDINE HCL 4 MG ORAL TABLET 1 daily as needed for muscle spa TIZANIDINE HCL 4 MG ORAL TABLET 298742 TIZANIDINE HCL Inactive PHENTERMINE HCL 37.5 MG ORAL TABLET Take one by mouth daily PHENTERMINE HCL 37.5 MG ORAL TABLET 175816 PHENTERMINE HCL Inac tive CRESTOR 10 MG ORAL TABLET 1 by mouth every day CRESTOR 10 MG ORAL TABLET 973590 ROSUVASTATIN CALCIUM Inactive LIPITOR 20 MG ORAL TABLET Take one by mouth daily in evening LIPITOR 20 MG ORAL TABLET 833285 ATORVASTATIN CALCIUM Inactive DEPO-TESTOSTERONE 200 MG/ML INTRAMUSCULAR SOLUTION as directed DEPO-TESTOSTERONE 200 MG/ML INTRAMUSCULAR SOLUTION 721292 RUFINO TOSTERONE CYPIONATE Inactive NAPROXEN 500 MG ORAL TABLET 1 tablet by mouth twice daily NAPROXEN 500 MG ORAL TABLET 115834 NAPROXEN Inactive GABAPENTIN 300 MG ORAL CAPSULE 1 po qd x 2 days, then 1 po BID x 2 days, then 1 po TID GABAPENTIN 300 MG ORAL CAPSULE 915048 GABAP ENTIN Inactive ONETOUCH ULTRA BLUE IN VITRO STRIP Test twice a day 07/11/11 ONETOUCH ULTRA BLUE IN VITRO STRIP GLUCOSE BLOOD Inact amie NAPROXEN SODIUM 220 MG ORAL TABLET 1 three times a day as needed NAPROXEN SODIUM 220 MG ORAL TABLET 742240 NAPROXEN SODI UM Inactive TOUJEO SOLOSTAR 300 UNIT/ML SUBCUTANEOUS SOLUTION PEN- INJECTOR 10 units SC daily TOUJEO SOLOSTAR 300 UNIT/ML SUBCUTANEOUS SOLUTION PEN-INJECTOR INSULIN GLARGINE Inactive SUCRALFATE 1 GM ORAL TABLET 1 four times a day to coat the stoma ch SUCRALFATE 1 GM ORAL TABLET 036733 SUCRALFATE Inac tive ZITHROMAX Z-ISAIAS 250 MG ORAL TABLET Take two tablets to day and then 1 tablet daily for 4 days ZITHROMAX Z-ISAIAS 250 MG ORAL TAB LET 793685 AZITHROMYCIN Inactive Immunizations Vaccine Administration Date Value Standard Floyd cription pneumococcal immunization administered Pneumovax 23 [CVX33] pneumococcal polysaccharide vaccine, 23 valent Seasonal influenza vaccine, injectable, containing preservative, for > 3 years old (Afluria, FluLaval, Fluzone, Fluvirin, Fluarix, Agriflu(>= 18 yo)) Fluzone (>3 yrs.) [SYQ723] Influenza, seasonal, inject able Seasonal influenza vaccine, injectable, containing preservative, for > 3 years old (Afluria, FluLaval, Fluzone, Fluvirin, Fluarix, Agriflu(>= 18 yo)) Fluzone (>3 yrs.) [LNT215] Influenza, seasonal, inject able Vital Signs Date Name Value Unit Range Description blood pressure, diastolic 93 mm[Hg] BP salmeron [...] weight E&M 234.5 [lb_av] Weight Measure d Diagnostic Results Date Name Value Unit Range Description Lab Report: Basic Metabolic Panel - Chem istry sodium, serum 139 mmol/L 857-245 6767/10/03 potassium, serum 4.7 mmol/L 3.5-5.2 chloride, serum 98 mmol/L 98-107 carbon dioxide, venous blood 28.7 mmol/L 21.0-32 .0 blood glucose 218 mg/dL 65-110 calcium, serum 9.8 mg/dL 8.5-10.1 urea nitrogen, blood 19 mg/dL 7-18 creatinine, serum 1.68 mg/dL 0.60-1.30 Lab Report: Basic Metabolic Panel, HGBA1 C - Chemistry sodium, serum 143 mmol/L 547-282 0398/06/19 potassium, serum 5.9 mmol/L 3.5-5.2 chloride, serum 105 mmol/L 98-107 carbon dioxide, venous blood 30.2 mmol/L 21.0-32 .0 blood glucose 189 mg/dL 65-110 calcium, serum 9.7 mg/dL 8.5-10.1 urea nitrogen, blood 37 mg/dL 7-18 creatinine, serum 2.11 mg/dL 0.55-1.30 hemoglobin A1C, blood, as % of total hemoglobin 8.2 % 4.3-6.0 Lab Report: CBC, Renal Panel - Chemistry sodium, serum 142 mmol/L 272-074 5799/08/11 potassium, serum 4.8 mmol/L 3.5-5.2 chloride, serum 103 mmol/L 98-107 carbon dioxide, venous blood 38.7 mmol/L 21.0-32 .0 creatinine, serum 1.69 mg/dL 0.60-1.30 blood glucose 179 mg/dL 65-110 urea nitrogen, blood 20 mg/dL 7-18 calcium, serum 9.9 mg/dL 8.5-10.1 Lab Report: CBC, Renal Panel - Hematolog y mean corpuscular hemoglobin concentration, RBC 32.5 G/DL % 31.8-35.4 red blood cell distribution width 14.4 % 11 .6-14.8 platelet count 304 10^3/MM^3 10*3/mm3 472-508 9284/08/11 leukocyte count, blood 7.2 10^3/MM^3 10*3/mm3 4.6-10.2 erythrocyte (RBC) count 4.02 10^6/MM^3 10*6/mm3 3.80-5.8 0 hemoglobin, blood 12.5 g/dL 12.0-16.0 hematocrit, blood 38.4 % 37.0-47.0 mean corpuscular volume, RBC 96 fL 80-97 mean corpuscular hemoglobin, RBC 31.1 pg 27. 0-31.2 Lab Report: Comp. Metabolic Panel, Lipid Panel - Chemistry sodium, serum 143 mmol/L 275-231 1230/12/19 carbon dioxide, venous blood 32.5 mmol/L 21.0-32 .0 potassium, serum 4.9 mmol/L 3.5-5.2 chloride, serum 101 mmol/L 98-107 blood glucose 129 mg/dL 65-110 urea nitrogen, blood 18 mg/dL 7-18 creatinine, serum 1.79 mg/dL 0.55-1.30 alanine aminotransferase (SGPT), serum 34 U/L 12-78 aspartate aminotransferase (SGOT), serum 26 U/L 15-37 calcium, serum 8.9 mg/dL 8.5-10.1 bilirubin, serum, total 0.30 mg/dL 0.00-1.00 cholesterol, serum 214 mg/dL 098-146 8182/12/19 triglyceride, serum, fasting 351 mg/dL 30-200 HDL [...] % of total hemoglobin 8.2 % 4.3-6.0 Encounters Code Encounter Date Provider Facility CPT-75240 Level 4 Est. Patient 12:25:11 CDT Baltazar Childers MD [facility] CPT-60183 Level 4 Est. Patient 14:22:31 CDT Baltazar Childers MD [facility] CPT-70167 Level 4 Est. Patient 15:44:38 CDT Shonna Parker APRN [facility] CPT-52464 Level 4 Est. Patient 11:34:17 CDT Baltazar Childers MD [facility] CPT-03348 Level 3 Est. Patient 16:40:40 CDT Baltazar Childers MD [facility]-28646 Level 4 Est. Patient 10:41:24 CDT Baltazar Childers MD [facility]-94171 Level 4 Est. Patient 16:01:48 CDT Baltazar Childers MD [facility]-13046 Level 4 Est. Patient 16:54:07 [employer] Baltazar Childers MD [facility] CPT-30971 Level 4 Est. Patient 15:42:12 CDT Baltazar Childers MD [facility] CPT-89147 Level 4 Est. Patient 11:29:55 CDT Baltazar Childers MD [facility] CPT-24164 Level 4 Est. Patient 14:15:19 CDT Baltazar Childers MD [facility] CPT-54897 Level 4 Est. Patient 12:20:13 CDT Baltazar Childers MD [facility] CPT-79344 Level 4 Est. Patient 14:52:45 [employer] Baltazar Childers MD [facility] CPT-39480 Level 4 Est. Patient 14:18:34 [employer]NET [employer] MANAGER Baltazar Childers MD [facility] CPT-51203 Level 4 Est. Patient 15:18:29 CDT Baltazar Childers MD [facility] CPT-01791 Level 3 Est. Patient 12:45:34 CDT Baltazar Childers MD [facility] CPT-42500 Level 3 Est. Patient 10:10:11 CDT Baltazar Childers MD [facility] CPT-29550 Level 3 Est. Patient 14:07:50 CDT Baltazar Childres MD [facility] CPT-69114 Level 4 Est. Patient 12:26:10 [employer]NET [employer] MANA[employer] Baltazar Childers MD [facility] CPT-07172 Level 4 Est. Patient 14:45:38 CDT Baltazar Childers MD [facility] CPT-70576 Level 4 New Patient 12:30:48 CDT Baltazar hinton MD [facility] Procedures Code Procedure Name Date Entry Date Standard Desc ription CPT-79621 First Vx - Ix admin via ID I M or jet injects without counseling by physician 13:08:59 CDT CPT-54712 Fluzone Quadrivalent Intramuscular Suspe nsion 0.5 ML 13:08:59 CDT CPT-76628 Venipuncture Draw Fee 12:04:12 CDT CPT-26036 Lipid - LAB USE ONLY 17:39:15 [employer]NET [employer] MANAGER 9 CPT-21551 HGBA1C - LAB USE ONLY 17:39:15 [employer]NET [employer] MANAGER CPT-34307 CMP - LAB USE ONLY 17:39:14 [employer]NET [employer] MANAGER CPT-06173 Venipuncture Draw Fee 17:39:14 INTERNET [employer] MANAGER CPT-79190 First Vx - Ix admin via ID I M or jet injects without counseling by physician 16:55:17 [employer]NET [employer] MANAGER CPT-74980 Fluzone Quadrivalent Intramuscular Suspe nsion 0.5 ML 16:55:17 [employer]NET [employer] MANA[employer] CPT-76666 Renal Panel - LAB USE ONLY 17:39:20 CDT 201 10/31/07 CPT-96204 CBC - LAB USE ONLY 17:39:20 CDT CPT-58394 Venipuncture Draw Fee 17:39:20 CDT CPT-70318 Venipuncture Draw Fee 14:33:30 CDT CPT-21434 Renal Panel - LAB USE ONLY 14:33:30 CDT 201 10/31/07 CPT-25445 CBC - LAB USE ONLY 14:33:29 CDT CPT-16340 Venipuncture Draw Fee 14:50:21 [employer]NET [employer] MANA[employer] CPT-29207 Immunization Single Admin 17:35:35 CDT 2014 CPT-58058 Fluzone Quadrivalent preservative free ( >=3yrs.) 17:35:35 CDT CPT-72270 Venipuncture Draw Fee 12:10:27 [employer]NET [employer] MANAGER CPT-96470 Fluzone Quadrivalent Intramuscular Suspe nsion 0.5 ML 10:49:13 CDT CPT-38217 First Vx Component - Ix admi n via ID IM or jet inj without physician counseling 15:17:19 [employer]NET [employer] MANAGER CPT-14260 Pneumovax 23 15:17:19 [employer]NET [employer] MANAGER CPT-82684 Pneumovax 14:52:45 [employer]NET [employer] MANAGER CPT-66601 Venipuncture Draw Fee 14:06:30 [employer]NET [employer] MANAGER CPT-000 Give Appropriate Flu Vaccine 14:18:34 [employer]NET [employer] MANAGER 2 CPT-57652 Administration single or combination vac cine inc oral 14:46:00 [employer]NET [employer] MANAGER CPT-24805 Influenza split virus > age 3 14:46:00 [employer]NET [employer] MANAGER CPT-OV Office Visit 19:13:16 CDT CPT-39914 Zostavax 18:41:56 CDT CPT-32119 Administration single or combination vac cine inc oral 12:56:39 CDT CPT-85470 Zoster Vaccine (Zostavax) 12:56:39 CDT 2012 CPT-16540 Venipuncture Draw Fee 10:58:57 CDT CPT-67633 Sono pelvis non OB uterus ovaries cervix 17:45:04 CDT CPT-42920 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
--- OUTSIDE RECORDS SUMMARY | 2019-10-27 12:05 | XMS REPORT | Clinical Summary ---
Author Author Abhishek, Elba Lance [facility] 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 [employer] Benign neoplasm of colon PERIPHERAL NEUROPATHY 356.9 Active Baltazar Nickerson MD Unspecified hereditary and idiopathic peripheral neuropathy PERSONAL HISTORY OF COLONIC POLYPS V12.72 Active 2 Llois Thomas APRN Personal history of colonic polyps [...] ronary atherosclerosis of unspecified type of vessel, [place] or graft OTH NONSPC ABN FINDNG RAD&OTH [...] pain syndrome COLON POLYPS ICD-211.3 Inactive Lolis Bynum Medication List Medication Instructions Start Date Stop Date Generic Name NDC Status Provider Patient Instruction ATORVASTATIN CALCIUM 20 MG ORAL TABS Take 1 tab daily ATORVASTATIN CALCIUM 77065236030 Active Kelly Iraheta LPN Active NAPROXEN SODIUM 220 MG ORAL TABS 1 three times a day as needed 2014 NAPROXEN SODIUM 28502422233 Active Baltazar Childers MD Active FUROSEMIDE 40 MG TABS Take one by mouth daily FUROSEMIDE 39153301993 Active Baltazar Childers MD Active LISINOPRIL 20 MG TABS Take one by mouth daily at bedtime LISINOPRIL 03683200540 Active Baltazar Childers MD Active ChicoryTOUCH ULTRA BLUE STRP Test twice a day GLUCO SE BLOOD 77710315800 No Longer Active Baltazar Childers MD Active TRUEPLUS LANCETS 33G MISC Test twice a day LANCET S 81016359566 Active Baltazar Childers MD Active TRUEDRAW LANCING DEVICE MISC Test twice a day L ANCET DEVICES 94741239567 Active Baltazar Childers MD Active TRUETRACK TEST STRP Test twice a day GLUCOSE BLOO D 55324051458 Active Baltazar Childers MD Active TRUETRACK BLOOD GLUCOSE W/DEVICE KIT Test twice a day BLOOD GLUCOSE MONITORING SUPPL 54129659276 Active Baltazar Childers MD Activ e HYDROCODONE-ACETAMINOPHEN 7.5-325 MG TABS Take 1 tab every 6-8 hour s PRN HYDROCODONE-ACETAMINOPHEN 76866938682 Active Kelly Iraheta LPN Active NORTRIPTYLINE HCL 50 MG CAPS 1 every night for neuropathy 4 NORTRIPTYLINE HCL 76997358653 Active Baltazar Childers MD Acti ve GABAPENTIN 300 MG CAPS 1 three times a day GABAPE NTIN 64954095851 Active Kelly Iraheta LPN Active GABAPENTIN 300 MG CAPS 1 po qd x 2 days, then 1 po BID x 2 d ays, then 1 po TID GABAPENTIN 65321880761 No Longer Active Baltazar silverman MD Active TRAMADOL HCL 50 MG TABS 1 twice a day as needed for pain TRAMADOL HCL 74089998729 Active Kelly Iraheta LPN Active NAPROXEN 500 MG TABS 1 tablet by mouth twice daily NAPROXEN 70867685283 No Longer Active Baltazar Childers MD Active PROAIR HFA 108 (90 BASE) MCG/ACT AERS 2 puffs four times a d ay as needed ALBUTEROL SULFATE 40677114990 Active Baltazar Childers MD Active DEPO-TESTOSTERONE 200 MG/ML OIL as directed RUFINO TOSTERONE CYPIONATE 74340824281 No Longer Active Baltazar Childers MD Active LIPITOR 20 MG TABS Take one by mouth daily in evening ATORVASTATIN CALCIUM 70069177499 No Longer Active Baltazar Childers MD Activ e CRESTOR 10 MG TABS 1 by mouth every day R OSUVASTATIN CALCIUM 96559822657 No Longer Active Baltazar Childers MD Activ e PHENTERMINE HCL 37.5 MG TABS Take one by mouth daily 2 PHENTERMINE HCL 74349371345 No Longer Active Baltazar Childers MD Activ e ROBAXIN-750 750 MG TABS Take one by mouth daily ME THOCARBAMOL 38429335961 Active Radha Person APRN Active TIZANIDINE HCL 4 MG TABS 1 daily as needed for muscle spasm 2011 TIZANIDINE HCL 89961507164 No Longer Active Dawna Salazar RN Active [id number]-[id number] 50-325-40 MG TABS 1 four time s a day as needed for heacache ENNRRIWEJD-[id number] 04896736732 Active Baltazar Childers MD Active SUMATRIPTAN SUCCINATE 100 MG TABS 1 tablet by mouth at onset of migraine as needed SUMATRIPTAN SUCCINATE 95022729017 Active Melody Paez Active LORATADINE 10 MG TABS Take one by mouth daily LORATADINE 38689355858 Active Melody Paez Active OMEPRAZOLE 20 MG CPDR Take one by mouth daily OMEPRAZOLE 85624115652 Active Baltazar Childers MD Active HYDROXYZINE HCL 25 MG TABS Take one by mouth daily HYDROXYZINE HCL 93377912388 Active Dawna Lew Active GLIPIZIDE 10 MG TABS 1 tablet by mouth twice daily GLIPIZIDE 48248195756 Active Baltazar Childers MD Active ALPRAZOLAM 1 MG TABS 1 tablet by mouth daily at bedtime for restles s leg ALPRAZOLAM 04294681506 Active Baltazar Childers MD Active METFORMIN HCL 1000 MG TABS Take one by mouth twice daily METFORMIN HCL 87395029479 Active Baltazar Childers MD Active TIZANIDINE HCL 4 MG TABS 1 daily as needed for muscle spasm 2011 TIZANIDINE HCL 4 MG TABS 317076 TIZANIDINE HCL Inactiv e PHENTERMINE HCL 37.5 MG TABS Take one by mouth daily 2 PHENTERMINE HCL 37.5 MG TABS 509541 PHENTERMINE HCL Inactive CRESTOR 10 MG TABS 1 by mouth every day C RESTOR 10 MG TABS ROSUVASTATIN CALCIUM Inactive LIPITOR 20 MG TABS Take one by mouth daily in evening LIPITOR 20 MG TABS 629516 ATORVASTATIN CALCIUM Inactive DEPO-TESTOSTERONE 200 MG/ML OIL as directed 8 DEPO-TESTOSTERONE 200 MG/ML OIL 394026 TESTOSTERONE CYPIONATE Inactive NAPROXEN 500 MG TABS 1 tablet by mouth twice daily 201 07/27/22 NAPROXEN 500 MG TABS 906478 NAPROXEN Inactive GABAPENTIN 300 MG CAPS 1 po qd x 2 days, then 1 po BID x 2 d ays, then 1 po TID GABAPENTIN 300 MG CAPS 615953 GABAPENTIN Inact amie ONETOUCH ULTRA BLUE STRP Test twice a day ONETOUCH ULTRA BLUE STRP GLUCOSE BLOOD Inactive Immunizations Vaccine Administration Date Value Standard Floyd cription pneumococcal immunization administered Pneumovax 23 [CVX33] pneumococcal polysaccharide vaccine, 23 valent Seasonal influenza vaccine, injectable, containing preservative, for > 3 years old (Afluria, FluLaval, Fluzone, Fluvirin, Fluarix, Agriflu(>= 18 yo)) Fluzone (>3 yrs.) [[id number]] Influenza, seasonal, inject able Seasonal influenza vaccine, injectable, containing preservative, for > 3 years old (Afluria, FluLaval, Fluzone, Fluvirin, Fluarix, Agriflu(>= 18 yo)) Fluzone (>3 yrs.) [[id number]] Influenza, seasonal, inject able Vital Signs Date Name Value Unit Range Description blood pressure, diastolic - 8462-4 82 mm[Hg] [...] - Chem istry sodium, serum 140 mmol/L 901-734 6682/05/05 potassium, serum 4.9 mmol/L 3.5-5.2 chloride, serum 99 mmol/L 98-107 carbon dioxide, venous blood 34.3 mmol/L 21.0-32 .0 blood glucose 132 mg/dL 65-110 calcium, serum 10.1 mg/dL 8.5-10.1 urea nitrogen, blood 23 mg/dL 7-18 creatinine, serum 2.00 mg/dL 0.60-1.30 Lab Report: CBC, Renal Panel - Chemistry sodium, serum 139 mmol/L 445-110 3429/01/20 potassium, serum 5.3 mmol/L 3.5-5.2 chloride, serum [...] count 262 10^3/MM^3 10*3/mm3 142-424 Lab Report: Comp. Metabolic Panel, Lipid Panel - Chemistry sodium, serum 138 mmol/L 773-227 6639/11/23 carbon dioxide, venous blood 32.4 mmol/L 21.0-32 .0 potassium, serum 5.7 mmol/L 3.5-5.2 chloride, serum 98 mmol/L 98-107 blood glucose 136 mg/dL 65-110 urea nitrogen, blood 18 mg/dL 7-18 creatinine, serum 1.71 mg/dL 0.55-1.30 alanine aminotransferase (SGPT), serum 71 U/L 12-78 aspartate aminotransferase (SGOT), serum 34 U/L 15-37 calcium, serum 9.4 mg/dL 8.5-10.1 bilirubin, serum, total 0.40 mg/dL 0.00-1.00 cholesterol, serum 405 mg/dL 148-243 0925/11/23 triglyceride, serum, fasting 709 mg/dL 30-200 HDL [...] W/RATIO - Lab microalbumin, urine 10 0-19 Encounters Code Encounter Date Provider Facility CPT-94675 Level 4 Est. Patient 15:42:12 CDT Baltazar Childers MD [facility] CPT-99394 Level 4 Est. Patient 11:29:55 CDT Baltazar Childers MD [facility] CPT-97157 Level 4 Est. Patient 14:15:19 CDT Baltazar Childers MD [facility] CPT-69117 Level 4 Est. Patient 12:20:13 CDT Baltazar Childers MD [facility] CPT-93497 Level 4 Est. Patient 14:52:45 METAL BURRER Baltazar Childers MD [facility] CPT-74252 Level 4 Est. Patient 14:18:34 METAL BURRER Baltazar Childers MD [facility] CPT-64514 Level 4 Est. Patient 15:18:29 CDT Baltazar Childers MD [facility] CPT-29109 Level 3 Est. Patient 12:45:34 CDT Baltazar Childers MD [facility] CPT-05981 Level 3 Est. Patient 10:10:11 CDT Baltazar Childers MD [facility] CPT-36142 Level 3 Est. Patient 14:07:50 CDT Baltazar Childers MD [facility] CPT-45869 Level 4 Est. Patient 12:26:10 METAL BURRER Baltazar Childers MD [facility] CPT-12232 Level 4 Est. Patient 14:45:38 CDT Baltazar Childers MD [facility] CPT-76142 Level 4 New Patient 12:30:48 CDT Baltazar hinton MD [facility] Procedures Code Procedure Name Date Entry Date Standard Desc ription CPT-16681 Immunization Single Admin 17:35:35 CDT 2014 CPT-53575 Fluzone Quadrivalent preservative free ( >=3yrs.) 17:35:35 CDT CPT-86495 Venipuncture Draw Fee 12:10:27 METAL BURRER CPT-66655 Fluzone Quadrivalent Intramuscular Suspe nsion 0.5 ML 10:49:13 CDT CPT-43023 First Vx Component - Ix admi n via ID IM or jet inj without physician counseling 15:17:19 METAL BURRER CPT-19321 Pneumovax 23 15:17:19 METAL BURRER CPT-37792 Pneumovax 14:52:45 METAL BURRER CPT-51658 Venipuncture Draw Fee 14:06:30 METAL BURRER CPT-000 Give Appropriate Flu Vaccine 14:18:34 METAL BURRER 2 CPT-08228 Administration single or combination vac cine inc oral 14:46:00 METAL BURRER CPT-32122 Influenza split virus > age 3 14:46:00 METAL BURRER CPT-OV Office Visit 19:13:16 CDT CPT-51525 Zostavax 18:41:56 CDT CPT-82946 Administration single or combination vac cine inc oral 12:56:39 CDT CPT-14550 Zoster Vaccine (Zostavax) 12:56:39 CDT 2012 CPT-15172 Venipuncture Draw Fee 10:58:57 CDT CPT-84368 Sono pelvis non OB uterus ovaries cervix 17:45:04 CDT CPT-78343 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
--- OUTSIDE RECORDS SUMMARY | 2019-10-27 12:06 | XMS REPORT | Clinical Summary ---
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 ASSISTANT Benign neoplasm of colon PERIPHERAL NEUROPATHY 356.9 [...] three times a day 201 12/03/26 GABAPENTIN 51758196423 No Longer Active Baltazar Childers MD Activ e LISINOPRIL 20 MG ORAL TABLET 1 tablet by mouth daily at night 2016 LISINOPRIL 45142456965 Active Baltazar Childers MD Active ZITHROMAX Z-ISAIAS 250 MG ORAL TABLET Take two tablets to day and then 1 tablet daily for 4 days AZITHROMYCIN 69261083462 No Longer A ctive Baltazar Childers MD Active LANTUS SOLOSTAR 100 UNIT/ML SUBCUTANEOUS SOLUTION PEN- INJECTOR 30 units SC daily INSULIN GLARGINE 30521509182 Active Baltazar Childers MD Active AMLODIPINE BESYLATE 5 MG ORAL TABLET 1 tab daily for HTN AMLODIPINE BESYLATE 45874670930 Active Baltazar Childers MD Active SYNTHROID 100 MCG ORAL TABLET 1 tablet by mouth daily LEVOTHYROXINE SODIUM 42894262277 Active Baltazar Childers MD Active GLIPIZIDE 10 MG ORAL TABLET take 2 tablets twice daily GLIPIZIDE 99283846207 Active Baltazar Childers MD Active SUCRALFATE 1 GM ORAL TABLET 1 four times a day to coat the stoma ch SUCRALFATE 77794153368 No Longer Active Baltazar Childers MD Active PEN NEEDLES 31G X 6 MM use 1 daily INSULIN PEN NE EDLE 38489993960 Active KENDALL Juarez Active CELINA POWERSOSTNAKITA 300 UNIT/ML SUBCUTANEOUS SOLUTION PEN- INJECTOR 10 units SC daily INSULIN GLARGINE 56020479121 No Longer Active Rola Godinez RMA Active NAPROXEN SODIUM 220 MG ORAL TABLET 1 three times a day as needed NAPROXEN SODIUM 72627362636 No Longer Active Baltazar Childers MD Active ATORVASTATIN CALCIUM 20 MG ORAL TABLET Take 1 tab daily ATORVASTATIN CALCIUM 98989413952 Active Baltazar Childers MD A ctive FUROSEMIDE 40 MG ORAL TABLET Take one by mouth daily FUROSEMIDE 90612727450 Active Baltazar Childers MD Active LISINOPRIL 20 MG ORAL TABLET Take one by mouth daily at bedtime LISINOPRIL 45336471806 No Longer Active Baltazar Childers MD Active ONETOUCH ULTRA BLUE IN VITRO STRIP Test twice a day 07/11/11 GLUCOSE BLOOD 58269559318 No Longer Active Baltazar Childers MD Acti ve TRUEPLUS LANCETS 33G Test twice a day LANCETS 7636509 4504 Active KENDALL Juarez Active TRUEDRAW LANCING DEVICE Test twice a day LANCET DEVICES 55503344858 Active Baltazar Childers MD Active TRUETRACK TEST IN VITRO STRIP Test twice a day GLUCOSE BLOOD 00445162943 Active KENDALL Juarez Active TRUETRACK BLOOD GLUCOSE w/Device KIT Test twice a day BLOOD GLUCOSE MONITORING SUPPL 26709684441 Active Baltazar Childers MD Activ e HYDROCODONE-ACETAMINOPHEN 7.5-325 MG ORAL TABLET Take 1 tab every 6-8 hours PRN HYDROCODONE-ACETAMINOPHEN 63745405953 Active Baltazar Nickerson MD Active NORTRIPTYLINE HCL 50 MG ORAL CAPSULE 1 every night for neuropathy 2 NORTRIPTYLINE HCL 38029473555 Active Baltazar Childers MD Acti ve GABAPENTIN 300 MG ORAL CAPSULE 1 po qd x 2 days, then 1 po BID x 2 days, then 1 po TID GABAPENTIN 86300884987 No Longer Active Baltazar Childers MD Active TRAMADOL HCL 50 MG ORAL TABLET 1 twice a day as needed for pain 201 07/27/28 TRAMADOL HCL 40539277464 Active Baltazar Childers MD Active NAPROXEN 500 MG ORAL TABLET 1 tablet by mouth twice daily NAPROXEN 90508878399 No Longer Active Baltazar Childers MD Active PROAIR HFA 108 (90 Base) MCG/ACT INHALATION AEROSOL SO LUTION 2 puffs four times a day as needed ALBUTEROL SULFATE 55462459351 Active KENDALL Bowie Active DEPO-TESTOSTERONE 200 MG/ML INTRAMUSCULAR SOLUTION as directed TESTOSTERONE CYPIONATE 99508729441 No Longer Active Baltazar Childers MD Active LIPITOR 20 MG ORAL TABLET Take one by mouth daily in evening ATORVASTATIN CALCIUM 51975506335 No Longer Active Baltazar Childers MD Active CRESTOR 10 MG ORAL TABLET 1 by mouth every day ROSUVASTATIN CALCIUM 28264771548 No Longer Active Baltazar Childers MD Active PHENTERMINE HCL 37.5 MG ORAL TABLET Take one by mouth daily PHENTERMINE HCL 45112570418 No Longer Active Baltazar Childers MD Ac tive ROBAXIN-750 750 MG ORAL TABLET Take one by mouth daily METHOCARBAMOL 00754307658 Active Baltazar Childers MD Active TIZANIDINE HCL 4 MG ORAL TABLET 1 daily as needed for muscle spa sm TIZANIDINE HCL 68344807796 No Longer Active Dawna Salazar RN Active JBVZFHYIPL-GZXP-UTHITNDE 50-325-40 MG ORAL TABLET 1 fo ur times a day as needed for heacache [id number]-[id number]-PMYGCRUY 44426887504 Active Baltazar Childers MD Active SUMATRIPTAN SUCCINATE 100 MG ORAL TABLET 1 tablet by m outh at onset of migraine as needed SUMATRIPTAN SUCCINATE 78782116488 Active KENDALL Restrepo Active LORATADINE 10 MG ORAL TABLET Take one by mouth daily LORATADINE 78985670296 Active Baltazar Childers MD Active OMEPRAZOLE 20 MG ORAL CAPSULE DELAYED RELEASE Take one by mouth jostin ly OMEPRAZOLE 37956106953 Active Baltazar Childers MD Active HYDROXYZINE HCL 25 MG ORAL TABLET Take one by mouth daily HYDROXYZINE HCL 95750191002 Active Baltazar Childers MD Active ALPRAZOLAM 1 MG ORAL TABLET 1 tablet by mouth [facility] leg ALPRAZOLAM 67758204276 Active Baltazar Childers MD Active METFORMIN HCL 1000 MG ORAL TABLET Take one by mouth twice daily METFORMIN HCL 73631655526 Active Baltazar Childers MD Active TIZANIDINE HCL 4 MG ORAL TABLET 1 daily as needed for muscle spa sm TIZANIDINE HCL 4 MG ORAL TABLET 067906 TIZANIDINE HCL Inactive PHENTERMINE HCL 37.5 MG ORAL TABLET Take one by mouth daily PHENTERMINE HCL 37.5 MG ORAL TABLET 847483 PHENTERMINE HCL Inac tive CRESTOR 10 MG ORAL TABLET 1 by mouth every day CRESTOR 10 MG ORAL TABLET 926412 ROSUVASTATIN CALCIUM Inactive LIPITOR 20 MG ORAL TABLET Take one by mouth daily in evening LIPITOR 20 MG ORAL TABLET 958504 ATORVASTATIN CALCIUM Inactive DEPO-TESTOSTERONE 200 MG/ML INTRAMUSCULAR SOLUTION as directed DEPO-TESTOSTERONE 200 MG/ML INTRAMUSCULAR SOLUTION 321996 RUFINO TOSTERONE CYPIONATE Inactive NAPROXEN 500 MG ORAL TABLET 1 tablet by mouth twice daily NAPROXEN 500 MG ORAL TABLET 744062 NAPROXEN Inactive GABAPENTIN 300 MG ORAL CAPSULE 1 po qd x 2 days, then 1 po BID x 2 days, then 1 po TID GABAPENTIN 300 MG ORAL CAPSULE 260652 GABAP ENTIN Inactive ONETOUCH ULTRA BLUE IN VITRO STRIP Test twice a day 07/11/11 ONETOUCH ULTRA BLUE IN VITRO STRIP GLUCOSE BLOOD Inact amie NAPROXEN SODIUM 220 MG ORAL TABLET 1 three times a day as needed NAPROXEN SODIUM 220 MG ORAL TABLET 750862 NAPROXEN SODI UM Inactive TOUJEO SOLOSTAR 300 UNIT/ML SUBCUTANEOUS SOLUTION PEN- INJECTOR 10 units SC daily TOUJEO SOLOSTAR 300 UNIT/ML SUBCUTANEOUS SOLUTION PEN-INJECTOR INSULIN GLARGINE Inactive SUCRALFATE 1 GM ORAL TABLET 1 four times a day to coat the stoma ch SUCRALFATE 1 GM ORAL TABLET 736873 SUCRALFATE Inac tive GABAPENTIN 300 MG ORAL CAPSULE 1 three times a day 201 12/03/26 GABAPENTIN 300 MG ORAL CAPSULE 146681 GABAPENTIN Inactive ZITHROMAX Z-ISAIAS 250 MG ORAL TABLET Take two tablets to day and then 1 tablet daily for 4 days ZITHROMAX Z-ISAIAS 250 MG ORAL TAB LET 248853 AZITHROMYCIN Inactive Immunizations Vaccine Administration Date Value Standard Floyd cription pneumococcal immunization administered Pneumovax 23 [CVX33] pneumococcal polysaccharide vaccine, 23 valent Seasonal influenza vaccine, injectable, containing preservative, for > 3 years old (Afluria, FluLaval, Fluzone, Fluvirin, Fluarix, Agriflu(>= 18 yo)) Fluzone (>3 yrs.) [SDR771] Influenza, seasonal, inject able Seasonal influenza vaccine, injectable, containing preservative, for > 3 years old (Afluria, FluLaval, Fluzone, Fluvirin, Fluarix, Agriflu(>= 18 yo)) Fluzone (>3 yrs.) [YZS067] Influenza, seasonal, inject able Vital Signs Date [...] - Chem istry sodium, serum 139 mmol/L 864-058 4799/10/03 potassium, serum 4.7 mmol/L 3.5-5.2 chloride, serum 98 mmol/L 98-107 carbon dioxide, venous blood 28.7 mmol/L 21.0-32 .0 blood glucose 218 mg/dL 65-110 calcium, serum 9.8 mg/dL 8.5-10.1 urea nitrogen, blood 19 mg/dL 7-18 creatinine, serum 1.68 mg/dL 0.60-1.30 Lab Report: Basic Metabolic Panel, HGBA1 C - Chemistry sodium, serum 143 mmol/L 963-544 1800/06/19 potassium, serum 5.9 mmol/L 3.5-5.2 chloride, serum 105 mmol/L 98-107 carbon dioxide, venous blood 30.2 mmol/L 21.0-32 .0 blood glucose 189 mg/dL 65-110 calcium, serum 9.7 mg/dL 8.5-10.1 urea nitrogen, blood 37 mg/dL 7-18 creatinine, serum 2.11 mg/dL 0.55-1.30 hemoglobin A1C, blood, as % of total hemoglobin 8.2 % 4.3-6.0 Lab Report: CBC, Renal Panel - Chemistry sodium, serum 142 mmol/L 679-060 9018/08/11 potassium, serum 4.8 mmol/L 3.5-5.2 chloride, serum [...] (L) - Chemistry cholesterol, serum 209 mg/dL 078-864 8885/12/27 triglyceride, serum, fasting 329 mg/dL 30-200 HDL cholesterol, serum 56 mg/dL 32-60 LDL cholesterol, serum 87 mg/dL 0-130 TSH 3.60 m[iU]/mL 0.36-3.74 Encounters Code Encounter Date Provider Facility CPT-59262 Level 4 Est. Patient 17:05:37 CDT Baltazar Childers MD [facility] CPT-48912 Level 4 Est. Patient 16:21:19 BAR STAFF Baltazar Childers MD [facility] CPT-93967 Level 4 Est. Patient 12:25:11 CDT Baltazar Childesr MD [facility] CPT-93519 Level 4 Est. Patient 14:22:31 CDT Baltazar Childers MD [facility]-15053 Level 4 Est. Patient 15:44:38 CDT Shonna Parker APRN [facility]-80157 Level 4 Est. Patient 11:34:17 CDT Baltazar Childers MD [facility]-06119 Level 3 Est. Patient 16:40:40 CDT Baltazar Childers MD [facility]-85004 Level 4 Est. Patient 10:41:24 CDT Baltazar Childers MD [facility]-16214 Level 4 Est. Patient 16:01:48 CDT Baltazar Childers MD [facility]-12463 Level 4 Est. Patient 16:54:07 BAR STAFF Baltazar Childers MD [facility]-45491 Level 4 Est. Patient 15:42:12 CDT Baltazar Childers MD [facility] CPT-80358 Level 4 Est. Patient 11:29:55 CDT Baltazar Childers MD [facility] CPT-54060 Level 4 Est. Patient 14:15:19 CDT Baltazar Childers MD [facility]-21585 Level 4 Est. Patient 12:20:13 CDT Baltazar Childers MD [facility]-15400 Level 4 Est. Patient 14:52:45 BAR STAFF Baltazar Childers MD [facility] CPT-52307 Level 4 Est. Patient 14:18:34 BAR STAFF Baltazar Childers MD [facility] CPT-25518 Level 4 Est. Patient 15:18:29 CDT Baltazar Childers MD [facility]-40681 Level 3 Est. Patient 12:45:34 CDT Baltazar Childers MD [facility]-08457 Level 3 Est. Patient 10:10:11 CDT Baltazar Childers MD [facility] CPT-87642 Level 3 Est. Patient 14:07:50 CDT Baltazar Childers MD [facility] CPT-97252 Level 4 Est. Patient 12:26:10 BAR STAFF Baltazar Childers MD [facility] CPT-52965 Level 4 Est. Patient 14:45:38 CDT Baltazar Childers MD [facility] CPT-25901 Level 4 New Patient 12:30:48 CDT Baltazar hinton MD [facility] Procedures Code Procedure Name Date Entry Date Standard Desc ription CPT-49953 First Vx - Ix admin via ID I M or jet injects without counseling by physician 13:08:59 CDT CPT-69031 Fluzone Quadrivalent Intramuscular Suspe nsion 0.5 ML 13:08:59 CDT CPT-28724 Venipuncture Draw Fee 12:04:12 CDT CPT-91293 Lipid - LAB USE ONLY 17:39:15 BAR STAFF 9 CPT-16590 HGBA1C - LAB USE ONLY 17:39:15 BAR STAFF CPT-38050 CMP - LAB USE ONLY 17:39:14 BAR STAFF CPT-74917 Venipuncture Draw Fee 17:39:14 BAR STAFF CPT-01831 First Vx - Ix admin via ID I M or jet injects without counseling by physician 16:55:17 BAR STAFF CPT-08334 Fluzone Quadrivalent Intramuscular Suspe nsion 0.5 ML 16:55:17 BAR STAFF CPT-13041 Renal Panel - LAB USE ONLY 17:39:20 CDT 201 10/31/07 CPT-32468 CBC - LAB USE ONLY 17:39:20 CDT CPT-21784 Venipuncture Draw Fee 17:39:20 CDT CPT-44075 Venipuncture Draw Fee 14:33:30 CDT CPT-88669 Renal Panel - LAB USE ONLY 14:33:30 CDT 201 10/31/07 CPT-17462 CBC - LAB USE ONLY 14:33:29 CDT CPT-95275 Venipuncture Draw Fee 14:50:21 BAR STAFF CPT-18310 Immunization Single Admin 17:35:35 CDT 2014 CPT-09231 Fluzone Quadrivalent preservative free ( >=3yrs.) 17:35:35 CDT CPT-47564 Venipuncture Draw Fee 12:10:27 BAR STAFF CPT-64961 Fluzone Quadrivalent Intramuscular Suspe nsion 0.5 ML 10:49:13 CDT CPT-71145 First Vx Component - Ix admi n via ID IM or jet inj without physician counseling 15:17:19 BAR STAFF CPT-84394 Pneumovax 23 15:17:19 BAR STAFF CPT-21893 Pneumovax 14:52:45 BAR STAFF CPT-71918 Venipuncture Draw Fee 14:06:30 BAR STAFF CPT-000 Give Appropriate Flu Vaccine 14:18:34 BAR STAFF 2 CPT-57283 Administration single or combination vac cine inc oral 14:46:00 BAR STAFF CPT-26746 Influenza split virus > age 3 14:46:00 BAR STAFF CPT-OV Office Visit 19:13:16 CDT CPT-92893 Zostavax 18:41:56 CDT CPT-85030 Administration single or combination vac cine inc oral 12:56:39 CDT CPT-26707 Zoster Vaccine (Zostavax) 12:56:39 CDT 2012 CPT-07669 Venipuncture Draw Fee 10:58:57 CDT CPT-48578 Sono pelvis non OB uterus ovaries cervix 17:45:04 CDT CPT-17773 Sono retroperitoneal complete kidneys an d bladder 17:14:36 CDT CPT-OV Office Visit 14:59:38 BAR STAFF CPT-J1070 Depo Testosterone 100 mg 14:50:13 CDT 03/05 CPT-32073 Abx/Therapy Injection 14:50:13 CDT CPT-25467 Administration single or combination vac cine inc oral 14:34:43 CDT CPT-45780 Influenza split virus > age 3 14:34:43 CDT CPT-J1070 Depo Testosterone 100 mg 17:37:13 CDT 01/11 CPT-11128 Abx/Therapy Injection 17:37:13 CDT CPT-48496 Venipuncture Draw Fee 16:30:13 CDT CPT-59153 Venipuncture Draw Fee 16:29:43 CDT CPT-J1070 Depo Testosterone 100 mg 14:45:38 CDT 01/11
--- OUTSIDE RECORDS SUMMARY | 2019-10-27 12:06 | XMS REPORT | Clinical Summary ---
Author Author Abhishek, Elba Lance Michelle [facility] Address Unknown Phone Unavailable Allergies, 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 PHARMACY TECHNOLOGIST Benign neoplasm of colon PERIPHERAL NEUROPATHY 356.9 Active Baltazar Nickerson MD Unspecified hereditary and idiopathic peripheral neuropathy PERSONAL HISTORY OF COLONIC POLYPS V12.72 Active 2 Lolis Thomas PHARMACY TECHNOLOGIST Personal history of colonic polyps PARESTHESIA, HANDS 782.0 Active Baltazar Childers MD Disturbance of skin sensation FH DIABETES V18.0 Active Baltazar Childers MD Family history of diabetes mellitus ANEMIA 285.9 Active Baltazar Childers MD Anemia, unspecified RENAL INSUFFICIENCY 593.9 Active Baltazar bynum MD Unspecified disorder of kidney and ureter CAD 414.00 Active Gladys Arce LRT Co ronary atherosclerosis of unspecified type of vessel, [place] or graft OTH NONSPC ABN FINDNG RAD&OTH [...] III 585.3 Active 201 10/25/03 Elba Ryan A Chronic kidney disease, Stage III [...] Childers MD Heartburn Hypothyroidism 244.9 Active Carina Tcuker LPN Unspecified hypothyroidism Pharyngitis 462 Resolved Baltazar [...] three times a day 201 12/03/26 GABAPENTIN 25535965482 No Longer Active Baltazar Childers MD Activ e LISINOPRIL 20 MG ORAL TABLET 1 tablet by mouth daily at night 2016 LISINOPRIL 25509917989 Active Baltazar Childers MD Active ZITHROMAX Z-ISAIAS 250 MG ORAL TABLET Take two tablets to day and then 1 tablet daily for 4 days AZITHROMYCIN 35739740422 No Longer A ctive Baltazar Childers MD Active LANTUS SOLOSTAR 100 UNIT/ML SUBCUTANEOUS SOLUTION PEN- INJECTOR 30 units SC daily INSULIN GLARGINE 80167273521 Active Baltazar Childers MD Active AMLODIPINE BESYLATE 5 MG ORAL TABLET 1 tab daily for HTN AMLODIPINE BESYLATE 52258402951 Active Baltazar Childers MD Active SYNTHROID 100 MCG ORAL TABLET 1 tablet by mouth daily LEVOTHYROXINE SODIUM 33491160356 Active Baltazar Childers MD Active GLIPIZIDE 10 MG ORAL TABLET take 2 tablets twice daily GLIPIZIDE 92415771326 Active Baltazar Childers MD Active SUCRALFATE 1 GM ORAL TABLET 1 four times a day to coat the stoma ch SUCRALFATE 61276211658 No Longer Active Baltazar Childers MD Active PEN NEEDLES 31G X 6 MM use 1 daily INSULIN PEN NE EDLE 98089379308 Active KENDALL Juarez Active APARNAURINKUO SOLOSTAR 300 UNIT/ML SUBCUTANEOUS SOLUTION PEN- INJECTOR 10 units SC daily INSULIN GLARGINE 87340677232 No Longer Active Rola ARGUETA Active NAPROXEN SODIUM 220 MG ORAL TABLET 1 three times a day as needed NAPROXEN SODIUM 13446922278 No Longer Active Baltazar Childers MD Active ATORVASTATIN CALCIUM 20 MG ORAL TABLET Take 1 tab daily ATORVASTATIN CALCIUM 42708633125 Active Baltazar Childers MD A ctive FUROSEMIDE 40 MG ORAL TABLET Take one by mouth daily FUROSEMIDE 51996295787 Active Baltazar Childers MD Active LISINOPRIL 20 MG ORAL TABLET Take one by mouth daily at bedtime LISINOPRIL 29569896633 No Longer Active Baltazar Childers MD Active ONETOUCH ULTRA BLUE IN VITRO STRIP Test twice a day 07/11/11 GLUCOSE BLOOD 54956799219 No Longer Active Baltazar Childers MD Acti ve TRUEPLUS LANCETS 33G Test twice a day LANCETS 2755431 1879 Active KENDALL Juarez Active TRUEDRAW LANCING DEVICE Test twice a day LANCET DEVICES 39651348674 Active Baltazar Childers MD Active TRUETRACK TEST IN VITRO STRIP Test twice a day GLUCOSE BLOOD 17537388249 Active KENDALL Juarez Active TRUETRACK BLOOD GLUCOSE w/Device KIT Test twice a day BLOOD GLUCOSE MONITORING SUPPL 19976484316 Active Baltazar Childers MD Activ e HYDROCODONE-ACETAMINOPHEN 7.5-325 MG ORAL TABLET Take 1 tab every 6-8 hours PRN HYDROCODONE-ACETAMINOPHEN 88225576301 Active Baltazar Nickerson MD Active NORTRIPTYLINE HCL 50 MG ORAL CAPSULE 1 every night for neuropathy 2 NORTRIPTYLINE HCL 47113164902 Active Baltazar Childers MD Acti ve GABAPENTIN 300 MG ORAL CAPSULE 1 po qd x 2 days, then 1 po BID x 2 days, then 1 po TID GABAPENTIN 61704328962 No Longer Active Baltazar Childers MD Active TRAMADOL HCL 50 MG ORAL TABLET 1 twice a day as needed for pain 201 07/27/28 TRAMADOL HCL 98887285426 Active Baltazar Childers MD Active NAPROXEN 500 MG ORAL TABLET 1 tablet by mouth twice daily NAPROXEN 77230757293 No Longer Active Baltazar Childers MD Active PROAIR HFA 108 (90 Base) MCG/ACT INHALATION AEROSOL SO LUTION 2 puffs four times a day as needed ALBUTEROL SULFATE 62890385425 Active KENDALL Bowie Active DEPO-TESTOSTERONE 200 MG/ML INTRAMUSCULAR SOLUTION as directed TESTOSTERONE CYPIONATE 86027356606 No Longer Active Baltazar Childers MD Active LIPITOR 20 MG ORAL TABLET Take one by mouth daily in evening ATORVASTATIN CALCIUM 54117626533 No Longer Active Baltazar Childers MD Active CRESTOR 10 MG ORAL TABLET 1 by mouth every day ROSUVASTATIN CALCIUM 77490641756 No Longer Active Baltazar Childers MD Active PHENTERMINE HCL 37.5 MG ORAL TABLET Take one by mouth daily PHENTERMINE HCL 61435312386 No Longer Active Baltazar Childers MD Ac tive ROBAXIN-750 750 MG ORAL TABLET Take one by mouth daily METHOCARBAMOL 73313099832 Active KENDALL Juarez Active TIZANIDINE HCL 4 MG ORAL TABLET 1 daily as needed for muscle spa sm TIZANIDINE HCL 14396479048 No Longer Active Dawna Salazar RN Active [id number]-[id number]-NWREHOYL 50-325-40 MG ORAL TABLET 1 fo ur times a day as needed for heacache [id number] 66810777684 Active Baltazar Childers MD Active SUMATRIPTAN SUCCINATE 100 MG ORAL TABLET 1 tablet by m outh at onset of migraine as needed SUMATRIPTAN SUCCINATE 06841216958 Active KENDALL Restrepo Active LORATADINE 10 MG ORAL TABLET Take one by mouth daily LORATADINE 57980152410 Active Baltazar Childers MD Active OMEPRAZOLE 20 MG ORAL CAPSULE DELAYED RELEASE Take one by mouth jostin ly OMEPRAZOLE 51870417857 Active Baltazar Childers MD Active HYDROXYZINE HCL 25 MG ORAL TABLET Take one by mouth daily HYDROXYZINE HCL 84909993519 Active Baltazar Childers MD Active ALPRAZOLAM 1 MG ORAL TABLET 1 tablet by mouth daily at [facility] ALPRAZOLAM 09185355268 Active Baltazar Childers MD Active METFORMIN HCL 1000 MG ORAL TABLET Take one by mouth twice daily METFORMIN HCL 55943630099 Active Baltazar Childers MD Active TIZANIDINE HCL 4 MG ORAL TABLET 1 daily as needed for muscle spa sm TIZANIDINE HCL 4 MG ORAL TABLET 585671 TIZANIDINE HCL Inactive PHENTERMINE HCL 37.5 MG ORAL TABLET Take one by mouth daily PHENTERMINE HCL 37.5 MG ORAL TABLET 198764 PHENTERMINE HCL Inac tive CRESTOR 10 MG ORAL TABLET 1 by mouth every day CRESTOR 10 MG ORAL TABLET 816443 ROSUVASTATIN CALCIUM Inactive LIPITOR 20 MG ORAL TABLET Take one by mouth daily in evening LIPITOR 20 MG ORAL TABLET 039883 ATORVASTATIN CALCIUM Inactive DEPO-TESTOSTERONE 200 MG/ML INTRAMUSCULAR SOLUTION as directed DEPO-TESTOSTERONE 200 MG/ML INTRAMUSCULAR SOLUTION 681276 RUFINO TOSTERONE CYPIONATE Inactive NAPROXEN 500 MG ORAL TABLET 1 tablet by mouth twice daily NAPROXEN 500 MG ORAL TABLET 485572 NAPROXEN Inactive GABAPENTIN 300 MG ORAL CAPSULE 1 po qd x 2 days, then 1 po BID x 2 days, then 1 po TID GABAPENTIN 300 MG ORAL CAPSULE 808842 GABAP ENTIN Inactive ONETOUCH ULTRA BLUE IN VITRO STRIP Test twice a day 07/11/11 ONETOUCH ULTRA BLUE IN VITRO STRIP GLUCOSE BLOOD Inact amie NAPROXEN SODIUM 220 MG ORAL TABLET 1 three times a day as needed NAPROXEN SODIUM 220 MG ORAL TABLET 539589 NAPROXEN SODI UM Inactive TOUJEO SOLOSTAR 300 UNIT/ML SUBCUTANEOUS SOLUTION PEN- INJECTOR 10 units SC daily TOUJEO SOLOSTAR 300 UNIT/ML SUBCUTANEOUS SOLUTION PEN-INJECTOR INSULIN GLARGINE Inactive SUCRALFATE 1 GM ORAL TABLET 1 four times a day to coat the stoma ch SUCRALFATE 1 GM ORAL TABLET 510382 SUCRALFATE Inac tive GABAPENTIN 300 MG ORAL CAPSULE 1 three times a day 201 12/03/26 GABAPENTIN 300 MG ORAL CAPSULE 081129 GABAPENTIN Inactive ZITHROMAX Z-ISAIAS 250 MG ORAL TABLET Take two tablets to day and then 1 tablet daily for 4 days ZITHROMAX Z-ISAIAS 250 MG ORAL TAB LET 935773 AZITHROMYCIN Inactive Immunizations Vaccine Administration Date Value Standard Floyd cription pneumococcal immunization administered Pneumovax 23 [CVX33] pneumococcal polysaccharide vaccine, 23 valent Seasonal influenza vaccine, injectable, containing preservative, for > 3 years old (Afluria, FluLaval, Fluzone, Fluvirin, Fluarix, Agriflu(>= 18 yo)) Fluzone (>3 yrs.) [[id number]] Influenza, seasonal, inject able Seasonal influenza vaccine, injectable, containing preservative, for > 3 years old (Afluria, FluLaval, Fluzone, Fluvirin, Fluarix, Agriflu(>= 18 yo)) Fluzone (>3 yrs.) [[id number]] Influenza, seasonal, inject able Vital Signs Date [...] - Chem istry sodium, serum 139 mmol/L 181-503 1706/10/03 urea nitrogen, blood 19 mg/dL 7-18 creatinine, serum 1.68 mg/dL 0.60-1.30 potassium, serum 4.7 mmol/L 3.5-5.2 chloride, serum 98 mmol/L 98-107 carbon dioxide, venous blood 28.7 mmol/L 21.0-32 .0 blood glucose 218 mg/dL 65-110 calcium, serum 9.8 mg/dL 8.5-10.1 Lab Report: Basic Metabolic Panel, HGBA1 C - Chemistry blood glucose 189 mg/dL 65-110 carbon dioxide, venous blood 30.2 mmol/L 21.0-32 .0 chloride, serum 105 mmol/L 98-107 potassium, serum 5.9 mmol/L 3.5-5.2 sodium, serum 143 mmol/L 028-795 0899/06/19 calcium, serum 9.7 mg/dL 8.5-10.1 urea nitrogen, blood 37 mg/dL 7-18 creatinine, serum 2.11 mg/dL 0.55-1.30 hemoglobin A1C, blood, as % of total hemoglobin 8.2 % 4.3-6.0 Lab Report: CBC, Renal Panel - Chemistry sodium, serum 142 mmol/L 363-661 2379/08/11 potassium, serum 4.8 mmol/L 3.5-5.2 chloride, serum [...] (L) - Chemistry cholesterol, serum 209 mg/dL 523-832 9809/12/27 triglyceride, serum, fasting 329 mg/dL 30-200 HDL cholesterol, serum 56 mg/dL 32-60 LDL cholesterol, serum 87 mg/dL 0-130 TSH 3.60 m[iU]/mL 0.36-3.74 Encounters Code Encounter Date Provider Facility CPT-15042 Level 4 Est. Patient 17:05:37 CDT Baltazar Childers MD [facility] CPT-42706 Level 4 Est. Patient 16:21:19 [employer] Baltazar Childers MD [facility] CPT-62762 Level 4 Est. Patient 12:25:11 CDT Baltazar Childers MD [facility]-33936 Level 4 Est. Patient 14:22:31 CDT Baltazar Childers MD [facility]-15648 Level 4 Est. Patient 15:44:38 CDT Shonnajean Parker APRN [facility]-78977 Level 4 Est. Patient 11:34:17 CDT Baltazar Childers MD [facility]-19851 Level 3 Est. Patient 16:40:40 CDT Baltazar Childers MD [facility]-38183 Level 4 Est. Patient 10:41:24 CDT Baltazar Childers MD [facility]-72624 Level 4 Est. Patient 16:01:48 CDT Baltazar Childers MD [facility]-91111 Level 4 Est. Patient 16:54:07 [employer] Baltazar Childers MD [facility]40724 Level 4 Est. Patient 15:42:12 CDT Baltazar Childers MD [facility] CPT-60929 Level 4 Est. Patient 11:29:55 CDT Baltazar Childers MD [facility]-92384 Level 4 Est. Patient 14:15:19 CDT Baltazar Childers MD [facility]-31366 Level 4 Est. Patient 12:20:13 CDT Baltazar Childers MD [facility]-97128 Level 4 Est. Patient 14:52:45 [employer] Baltazar Childers MD [facility]-32071 Level 4 Est. Patient 14:18:34 [employer] Baltazar Childers MD [facility]-69226 Level 4 Est. Patient 15:18:29 CDT Baltazar Childers MD [facility]-23118 Level 3 Est. Patient 12:45:34 CDT Baltazar Childers MD [facility] CPT-78671 Level 3 Est. Patient 10:10:11 CDT Baltazar Childers MD [facility] CPT-37900 Level 3 Est. Patient 14:07:50 CDT Baltazar Childers MD [facility] CPT-83762 Level 4 Est. Patient 12:26:10 [employer] Baltazar Childers MD [facility] CPT-66480 Level 4 Est. Patient 14:45:38 CDT Baltazar Childers MD [facility] CPT-58418 Level 4 New Patient 12:30:48 CDT Baltazar hinton MD [facility] Procedures Code Procedure Name Date Entry Date Standard Desc ription CPT-000 Give Appropriate Flu Vaccine 12:25:14 CDT 2 CPT-61434 First Vx - Ix admin via ID I M or jet injects without counseling by physician 13:08:59 CDT CPT-91241 Fluzone Quadrivalent Intramuscular Suspe nsion 0.5 ML 13:08:59 CDT CPT-71031 Venipuncture Draw Fee 12:04:12 CDT CPT-42981 Lipid - LAB USE ONLY 17:39:15 [employer] 9 CPT-72800 HGBA1C - LAB USE ONLY 17:39:15 [employer] CPT-21267 CMP - LAB USE ONLY 17:39:14 [employer] CPT-66051 Venipuncture Draw Fee 17:39:14 [employer] CPT-50734 First Vx - Ix admin via ID I M or jet injects without counseling by physician 16:55:17 [employer] CPT-77775 Fluzone Quadrivalent Intramuscular Suspe nsion 0.5 ML 16:55:17 [employer] CPT-00017 Renal Panel - LAB USE ONLY 17:39:20 CDT 201 10/31/07 CPT-18527 CBC - LAB USE ONLY 17:39:20 CDT CPT-50551 Venipuncture Draw Fee 17:39:20 CDT CPT-38376 Venipuncture Draw Fee 14:33:30 CDT CPT-96166 Renal Panel - LAB USE ONLY 14:33:30 CDT 201 10/31/07 CPT-68111 CBC - LAB USE ONLY 14:33:29 CDT CPT-60471 Venipuncture Draw Fee 14:50:21 [employer] CPT-78394 Immunization Single Admin 17:35:35 CDT 2014 CPT-38010 Fluzone Quadrivalent preservative free ( >=3yrs.) 17:35:35 CDT CPT-31066 Venipuncture Draw Fee 12:10:27 [employer] CPT-55688 Fluzone Quadrivalent Intramuscular Suspe nsion 0.5 ML 10:49:13 CDT CPT-59004 First Vx Component - Ix admi n via ID IM or jet inj without physician counseling 15:17:19 [employer] CPT-12467 Pneumovax 23 15:17:19 [employer] CPT-97776 Pneumovax 14:52:45 [employer] CPT-10457 Venipuncture Draw Fee 14:06:30 [employer] CPT-000 Give Appropriate Flu Vaccine 14:18:34 [employer] 2 CPT-59053 Administration single or combination vac cine inc oral 14:46:00 [employer] CPT-13042 Influenza split virus > age 3 14:46:00 [employer] CPT-OV Office Visit 19:13:16 CDT CPT-13845 Zostavax 18:41:56 CDT CPT-11796 Administration single or combination vac cine inc oral 12:56:39 CDT CPT-54516 Zoster Vaccine (Zostavax) 12:56:39 CDT 2012 CPT-74737 Venipuncture Draw Fee 10:58:57 CDT CPT-02384 Sono pelvis non OB uterus ovaries cervix 17:45:04 CDT CPT-23876 Sono retroperitoneal complete kidneys an d bladder 17:14:36 CDT CPT-OV Office Visit 14:59:38 [employer] CPT-J1070 Depo Testosterone 100 mg 14:50:13 CDT 03/05 CPT-37332 Abx/Therapy Injection 14:50:13 CDT CPT-50124 Administration single or combination vac cine inc oral 14:34:43 CDT CPT-32719 Influenza split virus > age 3 14:34:43 CDT CPT-J1070 Depo Testosterone 100 mg 17:37:13 CDT 01/11 CPT-73995 Abx/Therapy Injection 17:37:13 CDT CPT-86844 Venipuncture Draw Fee 16:30:13 CDT CPT-98341 Venipuncture Draw Fee 16:29:43 CDT CPT-J1070 Depo Testosterone 100 mg 14:45:38 CDT 01/11
--- OUTSIDE RECORDS SUMMARY | 2019-10-27 12:06 | XMS REPORT | Clinical Summary ---
Author Author Admin, Elba Lance [facility] Address Unknown Phone Unavailable Allergies, 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 VISITOR SERVICES INFORMATION ASSISTANT Benign neoplasm of colon PERIPHERAL NEUROPATHY [...] MD Anemia, unspecified RENAL INSUFFICIENCY 593.9 Active Baltazra bynum MD Unspecified disorder of kidney and ureter CAD 414.00 Active Gladys Arce LRT Co ronary atherosclerosis of unspecified type of vessel, [place] or graft OTH NONSPC ABN FINDNG RAD&OTH [...] a day to coat the stomach SUCRALFATE 62679316652 Active Baltazar Childers MD Active PEN NEEDLES 31G X 6 MM MISC use 1 daily INSULIN PEN NEEDLE 85013174370 Active Bella Suarez VISITOR SERVICES INFORMATION ASSISTANT Active TOUJEO SOLOSTAR 300 UNIT/ML SC SOPN 10 units SC daily INSULIN GLARGINE 43405124620 No Longer Active Martita Godinez RMA Active LANTUS SOLOSTAR 100 UNIT/ML SC SOPN 10 units SC daily INSULIN GLARGINE 69263639034 Active KENDALL Juarez Active NAPROXEN SODIUM 220 MG ORAL TABS 1 three times a day as needed 2 NAPROXEN SODIUM 75057719285 No Longer Active Baltazar Childers MD Active ATORVASTATIN CALCIUM 20 MG ORAL TABS Take 1 tab daily ATORVASTATIN CALCIUM 19353620696 Active KENDALL Juarez Active FUROSEMIDE 40 MG TABS Take one by mouth daily FUROSEMIDE 47036925385 Active KENDALL Juarez Active LISINOPRIL 20 MG TABS Take one by mouth daily at bedtime LISINOPRIL 74982223274 Active Baltazar Childers MD Active ONETOUCH ULTRA BLUE STRP Test twice a day GLUCO SE BLOOD 50817727792 No Longer Active Baltazar Childers MD Active TRUEPLUS LANCETS 33G MISC Test twice a day LANCET S 42175461914 Active KENDALL Juarez Active TRUEDRAW LANCING DEVICE MISC Test twice a day L ANCET DEVICES 46171659646 Active Baltazar Childers MD Active TRUETRACK TEST STRP Test twice a day GLUCOSE BLOO D 50759270597 Active KENDALL Juarez Active TRUETRACK BLOOD GLUCOSE W/DEVICE KIT Test twice a day BLOOD GLUCOSE MONITORING SUPPL 85343549706 Active Baltazar Childers MD Activ e HYDROCODONE-ACETAMINOPHEN 7.5-325 MG TABS Take 1 tab every 6-8 hour s PRN HYDROCODONE-ACETAMINOPHEN 37377240130 Active Baltazar Childers MD Active NORTRIPTYLINE HCL 50 MG CAPS 1 every night for neuropathy 4 NORTRIPTYLINE HCL 28478230104 Active KENDALL Juarez Acti ve GABAPENTIN 300 MG CAPS 1 three times a day GABAPE NTIN 65071232465 Active Baltazar Childers MD Active GABAPENTIN 300 MG CAPS 1 po qd x 2 days, then 1 po BID x 2 d ays, then 1 po TID GABAPENTIN 18884595870 No Longer Active Baltazar silverman MD Active TRAMADOL HCL 50 MG TABS 1 twice a day as needed for pain TRAMADOL HCL 87694748153 Active Baltazar Childers MD Active NAPROXEN 500 MG TABS 1 tablet by mouth twice daily NAPROXEN 57634717769 No Longer Active Baltazar Childers MD Active PROAIR HFA 108 (90 BASE) MCG/ACT AERS 2 puffs four times a d ay as needed ALBUTEROL SULFATE 43390518004 Active Baltazar Childers MD Active DEPO-TESTOSTERONE 200 MG/ML OIL as directed RUFINO TOSTERONE CYPIONATE 59773702568 No Longer Active Baltazar Childers MD Active LIPITOR 20 MG TABS Take one by mouth daily in evening ATORVASTATIN CALCIUM 04986118541 No Longer Active Baltazar Childers MD Activ e CRESTOR 10 MG TABS 1 by mouth every day R OSUVASTATIN CALCIUM 85098043075 No Longer Active Baltazar Childers MD Activ e PHENTERMINE HCL 37.5 MG TABS Take one by mouth daily 2 PHENTERMINE HCL 89222644617 No Longer Active Baltazar Childers MD Activ e ROBAXIN-750 750 MG TABS Take one by mouth daily ME THOCARBAMOL 87609119079 Active Baltazar Childers MD Active TIZANIDINE HCL 4 MG TABS 1 daily as needed for muscle spasm 2011 TIZANIDINE HCL 76166281372 No Longer Active Dawna Salazar RN Active [id number] 50-325-40 MG TABS 1 four time s a day as needed for heacache [id number] 97894355477 Active Baltazar Childers MD Active SUMATRIPTAN SUCCINATE 100 MG TABS 1 tablet by mouth at onset of migraine as needed SUMATRIPTAN SUCCINATE 85577960050 Active Bella STEPHEN RN Active LORATADINE 10 MG TABS Take one by mouth daily LORATADINE 29293838032 Active Baltazar Childers MD Active OMEPRAZOLE 20 MG CPDR Take one by mouth daily OMEPRAZOLE 31385697894 Active Argentina Lyons Active HYDROXYZINE HCL 25 MG TABS Take one by mouth daily HYDROXYZINE HCL 92684992041 Active Baltazar Childers MD Active GLIPIZIDE 10 MG TABS 1 tablet by mouth twice daily GLIPIZIDE 12432997047 Active KENDALL Juarez Active ALPRAZOLAM 1 MG TABS 1 tablet by mouth daily at bedtime for restles s leg ALPRAZOLAM 99363669978 Active Baltazar Childers MD Active METFORMIN HCL 1000 MG TABS Take one by mouth twice daily METFORMIN HCL 04111118410 Active Baltazar Childers MD Active TIZANIDINE HCL 4 MG TABS 1 daily as needed for muscle spasm 2011 TIZANIDINE HCL 4 MG TABS 603751 TIZANIDINE HCL Inactiv e PHENTERMINE HCL 37.5 MG TABS Take one by mouth daily 2 PHENTERMINE HCL 37.5 MG TABS 716553 PHENTERMINE HCL Inactive CRESTOR 10 MG TABS 1 by mouth every day C RESTOR 10 MG TABS 073656 ROSUVASTATIN CALCIUM Inactive LIPITOR 20 MG TABS Take one by mouth daily in evening LIPITOR 20 MG TABS 337345 ATORVASTATIN CALCIUM Inactive DEPO-TESTOSTERONE 200 MG/ML OIL as directed 8 DEPO-TESTOSTERONE 200 MG/ML OIL 595046 TESTOSTERONE CYPIONATE Inactive NAPROXEN 500 MG TABS 1 tablet by mouth twice daily 201 07/27/22 NAPROXEN 500 MG TABS 555792 NAPROXEN Inactive GABAPENTIN 300 MG CAPS 1 po qd x 2 days, then 1 po BID x 2 d ays, then 1 po TID GABAPENTIN 300 MG CAPS 141770 GABAPENTIN Inact amie ONETOUCH ULTRA BLUE STRP Test twice a day ONETOUCH ULTRA BLUE STRP GLUCOSE BLOOD Inactive NAPROXEN SODIUM 220 MG ORAL TABS 1 three times a day as needed 2 NAPROXEN SODIUM 220 MG ORAL TABS 948108 NAPROXEN SODIUM Inactive TOUJEO SOLOSTAR 300 UNIT/ML [...] Fluarix, Agriflu(>= 18 yo)) Fluzone (>3 yrs.) [FBV014] Influenza, seasonal, inject able Seasonal influenza vaccine, injectable, containing preservative, for > 3 years old (Afluria, FluLaval, Fluzone, Fluvirin, Fluarix, Agriflu(>= 18 yo)) Fluzone (>3 yrs.) [QAX335] Influenza, seasonal, inject able Vital Signs Date [...] C - Chemistry sodium, serum 139 mmol/L 766-003 5275/07/07 potassium, serum 4.5 mmol/L 3.5-5.2 chloride, serum [...] count 345 10^3/MM^3 10*3/mm3 142-424 Lab Report: CBC, HGBA1C, Renal Panel - C hemistry hemoglobin A1C, blood, as % of total hemoglobin 7.9 % 4.3-6.0 sodium, serum 139 mmol/L 421-466 9975/02/04 potassium, serum 5.4 mmol/L 3.5-5.2 chloride, serum [...] 142-424 Lab Report: Renal Panel - Chemistry sodium, serum 141 mmol/L 567-682 4263/08/08 potassium, serum 4.9 mmol/L 3.5-5.2 chloride, serum 101 mmol/L 98-107 carbon dioxide, venous blood 34.1 mmol/L 21.0-32 .0 creatinine, serum 1.98 mg/dL 0.55-1.30 blood glucose 193 mg/dL 65-110 urea nitrogen, blood 30 mg/dL 7-18 calcium, serum 9.8 mg/dL 8.5-10.1 Office Visit: Medication refill - Chemis try cholesterol, target level 200 mg/dL LDL target level 70 mg/dL HDL cholesterol, serum, target level 40 mg/dL triglyceride, target level 150 mg/dL Encounters Code Encounter Date Provider Facility CPT-37215 Level 4 Est. Patient 11:34:17 CDT Baltazar Childers MD [facility] CPT-43674 Level 3 Est. Patient 16:40:40 CDT Baltazar Childers MD [facility] CPT-83840 Level 4 Est. Patient 10:41:24 CDT Baltazar Childers MD [facility] CPT-14136 Level 4 Est. Patient 16:01:48 CDT Baltazar Childers MD [facility] CPT-52484 Level 4 Est. Patient 16:54:07 COMPUTER SYSTEMS SOFTWARE ARCHITECT Baltazar Childers MD [facility] CPT-50395 Level 4 Est. Patient 15:42:12 CDT Baltazar Childers MD [facility] CPT-56783 Level 4 Est. Patient 11:29:55 CDT Baltazar Childers MD [facility] CPT-17542 Level 4 Est. Patient 14:15:19 CDT Baltazar Childers MD [facility] CPT-58167 Level 4 Est. Patient 12:20:13 CDT Baltazar Childers MD [facility] CPT-06793 Level 4 Est. Patient 14:52:45 COMPUTER SYSTEMS SOFTWARE ARCHITECT Baltazar Childers MD [facility] CPT-81613 Level 4 Est. Patient 14:18:34 COMPUTER SYSTEMS SOFTWARE ARCHITECT Baltazar Childers MD [facility] CPT-22992 Level 4 Est. Patient 15:18:29 CDT Baltazar Childers MD [facility] CPT-05012 Level 3 Est. Patient 12:45:34 CDT Baltazar Childers MD [facility] CPT-19276 Level 3 Est. Patient 10:10:11 CDT Baltazar Childers MD [facility] CPT-76985 Level 3 Est. Patient 14:07:50 CDT Baltazar Childers MD [facility] CPT-46337 Level 4 Est. Patient 12:26:10 COMPUTER SYSTEMS SOFTWARE ARCHITECT Baltazar Childers MD [facility] CPT-72705 Level 4 Est. Patient 14:45:38 CDT Baltazar Childers MD [facility] CPT-01746 Level 4 New Patient 12:30:48 CDT Baltazar hinton MD [facility] Procedures Code Procedure Name Date Entry Date Standard Desc ription CPT-85320 Renal Panel - LAB USE ONLY 17:39:20 CDT 201 10/31/07 CPT-01682 CBC - LAB USE ONLY 17:39:20 CDT CPT-76826 Venipuncture Draw Fee 17:39:20 CDT CPT-27817 Venipuncture Draw Fee 14:33:30 CDT CPT-91373 Renal Panel - LAB USE ONLY 14:33:30 CDT 201 10/31/07 CPT-57658 CBC - LAB USE ONLY 14:33:29 CDT CPT-06618 Venipuncture Draw Fee 14:50:21 COMPUTER SYSTEMS SOFTWARE ARCHITECT CPT-91167 Immunization Single Admin 17:35:35 CDT 2014 CPT-79917 Fluzone Quadrivalent preservative free ( >=3yrs.) 17:35:35 CDT CPT-50441 Venipuncture Draw Fee 12:10:27 COMPUTER SYSTEMS SOFTWARE ARCHITECT CPT-50586 Fluzone Quadrivalent Intramuscular Suspe nsion 0.5 ML 10:49:13 CDT CPT-38839 First Vx Component - Ix admi n via ID IM or jet inj without physician counseling 15:17:19 COMPUTER SYSTEMS SOFTWARE ARCHITECT CPT-73490 Pneumovax 23 15:17:19 COMPUTER SYSTEMS SOFTWARE ARCHITECT CPT-15196 Pneumovax 14:52:45 COMPUTER SYSTEMS SOFTWARE ARCHITECT CPT-62147 Venipuncture Draw Fee 14:06:30 COMPUTER SYSTEMS SOFTWARE ARCHITECT CPT-000 Give Appropriate Flu Vaccine 14:18:34 COMPUTER SYSTEMS SOFTWARE ARCHITECT 2 CPT-23467 Administration single or combination vac cine inc oral 14:46:00 COMPUTER SYSTEMS SOFTWARE ARCHITECT CPT-78471 Influenza split virus > age 3 14:46:00 COMPUTER SYSTEMS SOFTWARE ARCHITECT CPT-OV Office Visit 19:13:16 CDT CPT-34678 Zostavax 18:41:56 CDT CPT-40970 Administration single or combination vac cine inc oral 12:56:39 CDT CPT-29591 Zoster Vaccine (Zostavax) 12:56:39 CDT 2012 CPT-23616 Venipuncture Draw Fee 10:58:57 CDT CPT-22555 Sono pelvis non OB uterus ovaries cervix 17:45:04 CDT CPT-98912 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
--- OUTSIDE RECORDS SUMMARY | 2019-10-27 12:06 | XMS REPORT | Clinical Summary ---
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 Benign neoplasm of colon PERIPHERAL NEUROPATHY 356.9 [...] ronary atherosclerosis of unspecified type of vessel, [place] or graft OTH NONSPC ABN FINDNG RAD&OTH [...] Test twice a day GLUCO SE BLOOD 35107873469 No Longer Active Baltazar Childers MD Active TRUEPLUS LANCETS 33G MISC Test twice a day LANCET S 12538237798 Active Baltazar Childers MD Active TRUEDRAW LANCING DEVICE MISC Test twice a day L ANCET DEVICES 28919599996 Active Baltazar Childers MD Active TRUETRACK TEST STRP Test twice a day GLUCOSE BLOO D 68250534387 Active Baltazar Childers MD Active TRUETRACK BLOOD GLUCOSE W/DEVICE KIT Test twice a day BLOOD GLUCOSE MONITORING SUPPL 18854601822 Active Baltazar Childers MD Activ e HYDROCODONE-ACETAMINOPHEN 7.5-325 MG TABS Take 1 tab every 6-8 hour s PRN HYDROCODONE-ACETAMINOPHEN 13131899487 Active Gato Rae MD Active NORTRIPTYLINE HCL 50 MG CAPS 1 every night for neuropathy 4 NORTRIPTYLINE HCL 65991676891 Active Baltazar Childers MD Acti ve GABAPENTIN 300 MG CAPS 1 three times a day GABAPE NTIN 18173128261 Active Baltazar Childers MD Active GABAPENTIN 300 MG CAPS 1 po qd x 2 days, then 1 po BID x 2 d ays, then 1 po TID GABAPENTIN 02855482000 No Longer Active Baltazar silverman MD Active TRAMADOL HCL 50 MG TABS 1 twice a day as needed for pain TRAMADOL HCL 96663685989 Active Baltazar Childers MD Active NAPROXEN 500 MG TABS 1 tablet by mouth twice daily NAPROXEN 30253648187 No Longer Active Baltazar Childers MD Active PROAIR HFA 108 (90 BASE) MCG/ACT AERS 2 puffs four times a d ay as needed ALBUTEROL SULFATE 74086817178 Active Baltazar Childers MD Active DEPO-TESTOSTERONE 200 MG/ML OIL as directed RUFINO TOSTERONE CYPIONATE 46593951744 No Longer Active Baltazar Childers MD Active LIPITOR 20 MG TABS Take one by mouth daily in evening ATORVASTATIN CALCIUM 67831369671 No Longer Active Baltzaar Childers MD Activ e CRESTOR 10 MG TABS 1 by mouth every day R OSUVASTATIN CALCIUM 36837181476 No Longer Active Baltazar Childers MD Activ e PHENTERMINE HCL 37.5 MG TABS Take one by mouth daily 2 PHENTERMINE HCL 46135808795 No Longer Active Baltazar Childers MD Activ e ROBAXIN-750 750 MG TABS Take one by mouth daily ME THOCARBAMOL 77492826889 Active Baltazar Childers MD Active TIZANIDINE HCL 4 MG TABS 1 daily as needed for muscle spasm 2011 TIZANIDINE HCL 92881879168 No Longer Active Dawna Salazar RN Active [id number] 50-325-40 MG TABS 1 four time s a day as needed for heacache [id number] 06971269216 Active Baltazar Childers MD Active SUMATRIPTAN SUCCINATE 100 MG TABS 1 tablet by mouth at onset of migraine as needed SUMATRIPTAN SUCCINATE 64329558022 Active Baltazar bynum MD Active LORATADINE 10 MG TABS Take one by mouth daily LORATADINE 53470165647 Active Baltazar Childers MD Active FUROSEMIDE 40 MG TABS Take one by mouth daily FUROSEMIDE 88456699143 Active Baltazar Childers MD Active LISINOPRIL 20 MG TABS Take one by mouth daily at bedtime LISINOPRIL 37563207145 Active Baltazar Childers MD Active OMEPRAZOLE 20 MG CPDR Take one by mouth daily OMEPRAZOLE 60890963895 Active Baltazar Childers MD Active HYDROXYZINE HCL 25 MG TABS Take one by mouth daily HYDROXYZINE HCL 34563170099 Active Baltazar Childers MD Active GLIPIZIDE 10 MG TABS 1 tablet by mouth twice daily GLIPIZIDE 08341509515 Active Baltazar Childers MD Active ALPRAZOLAM 1 MG TABS 1 tablet by mouth daily at bedtime for restles s leg ALPRAZOLAM 98874553132 Active Baltazar Childers MD Active METFORMIN HCL 1000 MG TABS Take one by mouth twice daily METFORMIN HCL 21905051233 Active Baltazar Childers MD Active TIZANIDINE HCL 4 MG TABS 1 daily as needed for muscle spasm 2011 TIZANIDINE HCL 4 MG TABS 543561 TIZANIDINE HCL Inactiv e PHENTERMINE HCL 37.5 MG TABS Take one by mouth daily 2 PHENTERMINE HCL 37.5 MG TABS 684737 PHENTERMINE HCL Inactive CRESTOR 10 MG TABS 1 by mouth every day C RESTOR 10 MG TABS ROSUVASTATIN CALCIUM Inactive LIPITOR 20 MG TABS Take one by mouth daily in evening LIPITOR 20 MG TABS 615056 ATORVASTATIN CALCIUM Inactive DEPO-TESTOSTERONE 200 MG/ML OIL as directed 8 DEPO-TESTOSTERONE 200 MG/ML OIL 619293 TESTOSTERONE CYPIONATE Inactive NAPROXEN 500 MG TABS 1 tablet by mouth twice daily 201 07/27/22 NAPROXEN 500 MG TABS 162984 NAPROXEN Inactive GABAPENTIN 300 MG CAPS 1 po qd x 2 days, then 1 po BID x 2 d ays, then 1 po TID GABAPENTIN 300 MG CAPS 797327 GABAPENTIN Inact amei ONETOUCH ULTRA BLUE STRP Test twice a day ONETOUCH ULTRA BLUE STRP GLUCOSE BLOOD Inactive Immunizations Vaccine Administration Date Value Standard Floyd cription pneumococcal immunization administered Pneumovax 23 [CVX33] pneumococcal polysaccharide vaccine, 23 valent Seasonal influenza vaccine, injectable, containing preservative, for > 3 years old (Afluria, FluLaval, Fluzone, Fluvirin, Fluarix, Agriflu(>= 18 yo)) Fluzone (>3 yrs.) [JEX765] Influenza, seasonal, inject able Seasonal influenza vaccine, injectable, containing preservative, for > 3 years old (Afluria, FluLaval, Fluzone, Fluvirin, Fluarix, Agriflu(>= 18 yo)) Fluzone (>3 yrs.) [RNL359] Influenza, seasonal, inject able Vital Signs Date [...] - Chem istry sodium, serum 140 mmol/L 096-730 3859/05/05 potassium, serum 4.9 mmol/L 3.5-5.2 chloride, serum [...] Panel - Chemistry sodium, serum 139 mmol/L 043-658 2340/01/20 potassium, serum 5.3 mmol/L 3.5-5.2 chloride, serum [...] mg/g mg/g{creat} 0-29 cholesterol, serum 319 mg/dL 177-772 0770/08/21 triglyceride, serum, fasting 546 mg/dL 30-200 HDL cholesterol, serum 39 mg/dL 32-96 LDL cholesterol, serum 167.00 mg/dL 5.00-130.00 hemoglobin A1C, blood, as % of total hemoglobin 7.7 % 4.3-6.0 sodium, serum 138 mmol/L 314-818 2857/08/21 potassium, serum 4.3 mmol/L 3.5-5.2 chloride, serum [...] 0-19 Encounters Code Encounter Date Provider Facility CPT-30887 Level 4 Est. Patient 11:29:55 CDT Baltazar Childers MD [facility] CPT-38555 Level 4 Est. Patient 14:15:19 CDT Baltazar Childers MD [facility] CPT-55172 Level 4 Est. Patient 12:20:13 CDT Baltazar Childers MD [facility] CPT-68708 Level 4 Est. Patient 14:52:45 LINE FIXER Baltazar Childers MD [facility] CPT-42701 Level 4 Est. Patient 14:18:34 LINE FIXER Baltazar Childers MD [facility] CPT-45462 Level 4 Est. Patient 15:18:29 CDT Baltazar Childers MD [facility] CPT-59398 Level 3 Est. Patient 12:45:34 CDT Baltazar Childers MD [facility] CPT-38145 Level 3 Est. Patient 10:10:11 CDT Baltazar Childers MD [facility] CPT-91433 Level 3 Est. Patient 14:07:50 CDT Baltazar Childers MD [facility] CPT-71906 Level 4 Est. Patient 12:26:10 LINE FIXER Baltazar Childers MD [facility] CPT-48547 Level 4 Est. Patient 14:45:38 CDT Baltazar Childers MD [facility] CPT-34115 Level 4 New Patient 12:30:48 CDT Baltazar hinton MD [facility] Procedures Code Procedure Name Date Entry Date Standard Desc ription CPT-52919 Venipuncture Draw Fee 12:10:27 LINE FIXER CPT-67705 Fluzone Quadrivalent Intramuscular Suspe nsion 0.5 ML 10:49:13 CDT CPT-23031 First Vx Component - Ix admi n via ID IM or jet inj without physician counseling 15:17:19 LINE FIXER CPT-28796 Pneumovax 15:17:19 LINE FIXER CPT-99781 Pneumovax 14:52:45 LINE FIXER CPT-93303 Venipuncture Draw Fee 14:06:30 LINE FIXER CPT-000 Give Appropriate Flu Vaccine 14:18:34 LINE FIXER 2 CPT-92471 Administration single or combination vac cine inc oral 14:46:00 LINE FIXER CPT-35975 Influenza split virus > age 3 14:46:00 LINE FIXER CPT-OV Office Visit 19:13:16 CDT CPT-85750 Zostavax 18:41:56 CDT CPT-91246 Administration single or combination vac cine inc oral 12:56:39 CDT CPT-84337 Zoster Vaccine (Zostavax) 12:56:39 CDT 2012 CPT-79577 Venipuncture Draw Fee 10:58:57 CDT CPT-80749 Sono pelvis non OB uterus ovaries cervix 17:45:04 CDT CPT-62541 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
--- OUTSIDE RECORDS SUMMARY | 2019-10-27 12:07 | XMS REPORT | Clinical Summary ---
Author Author Admin, Elba [employer] Address Unknown Phone Unavailable Allergies, Adverse Reactions, [...] Morbid obesity due to excess calories 278.01 [facility] t Baltazar Childers MD Morbid obesity Obesity Class II (BMI 35-39.9) 278.01 Refinement 10/26 Baltazar Childers MD Morbid obesity Morbid obesity due to excess calories 278.01 [facility] t Baltazar Childers MD Morbid obesity Obesity Class II (BMI 35-39.9) 278.01 Refinement 01/19 Baltazar Childers MD Morbid obesity Morbid obesity due to excess calories 278.01 [facility] t Baltazar Childers MD Morbid [...] ronary atherosclerosis of unspecified type of vessel, [place] or graft OTH NONSPC ABN FINDNG RAD&OTH [...] ICD-211.3 Inactive Lolis Bynum Pharyngitis ICD-462 Inactive Balatzar Childers MD Medication List Medication Instructions Start Date Stop Date Generic Name NDC Status Provider Patient Instruction HUMALOG 100 UNIT/ML SUBCUTANEOUS SOLUTION Take 5 units with every meal INSULIN LISPRO 11482252417 Active Fadumo Ruiz Active HYDROCODONE-ACETAMINOPHEN 7.5-325 MG ORAL TABLET Take 1 tab every 6-8 hours PRN HYDROCODONE-ACETAMINOPHEN 12852869781 Active Baltazar Nickerson MD Active NOVOLOG 100 UNIT/ML SUBCUTANEOUS SOLUTION 5 units with each meal. 2 INSULIN ASPART 18406168995 No Longer Active Fanny Hudson MA Activ e ONGLYZA 2.5 MG TABS TAKE 1 TABLET BY MOUTH EVERY DAY FOR DIABETES 2 SAXAGLIPTIN HCL 28090524948 Active Fanny Hudson MA Active GLIPIZIDE 10MG TABLETS TAKE 2 TABLETS BY MOUTH TWICE DAILY GLIPIZIDE 29228466919 Active Fanny Hudson MA Active TRUE METRIX B/G TEST STRIPS 25'S TEST BLOOD SUGAR TWICE DAILY 03/02 GLUCOSE BLOOD 47301222184 Active KENDALL Juarez Active LEVOTHYROXINE 0.112MG (112MCG) TABS TAKE 1 TABLET BY MOUTH EVERY DAY LEVOTHYROXINE SODIUM 00927515364 Active Fanny Hudson MA Active AMLODIPINE BESYLATE 5MG TABLETS TAKE 1 TABLET BY MOUTH EVERY DAY FOR HYPERTENSION AMLODIPINE BESYLATE 01518904566 Active Estefania Hudson MA Active LANTUS SOLOSTAR 100 UNIT/ML SUBCUTANEOUS SOLUTION PEN- INJECTOR 20 units am and 13 units at night INSULIN GLARGINE 69949826511 Active Fanny Hudson MA Active TRAMADOL HCL 50 MG ORAL TABLET 1 twice a day as needed for pain TRAMADOL HCL 43560033046 No Longer Active Baltazar Childers MD Active ROBAXIN 500 MG ORAL TABLET Take 1.5 (one and one half) tabs once daily METHOCARBAMOL 30663437814 Active Fanny Hudson MA Active TRUE METRIX AIR GLUCOSE METER DEVICE Use as directed BLOOD GLUCOSE MONITORING SUPPL 75806006796 Active Baltazar Childers MD Activ e NORTRIPTYLINE HCL 50 MG ORAL CAPSULE 1 twice a day for neuropathy 2 NORTRIPTYLINE HCL 34293700748 Active Fanny Hudson MA Active ASPIRIN 81 MG TBEC Take one (1) tablet by mouth daily ASPIRIN 92097431327 Active Baltazar Childers MD Active GABAPENTIN 300 MG ORAL CAPSULE 1 three times a day 201 12/03/26 GABAPENTIN 61275433206 No Longer Active Baltazar Childers MD Activ e LISINOPRIL 20 MG ORAL TABLET 1 tablet by mouth daily at night 2016 LISINOPRIL 90445140037 Active Fanny Hudson MA Active ZITHROMAX Z-ISAIAS 250 MG ORAL TABLET Take two tablets to day and then 1 tablet daily for 4 days AZITHROMYCIN 85305097289 No Longer A ctive Baltazar Childers MD Active SUCRALFATE 1 GM ORAL TABLET 1 four times a day to coat the stoma ch SUCRALFATE 61466067142 No Longer Active Baltazar Childers MD Active PEN NEEDLES 31G X 6 MM use 1 daily INSULIN PEN NE EDLE 36181620918 Active KENDALL Juarez Active CELINA PARIKH 300 UNIT/ML SUBCUTANEOUS SOLUTION PEN- INJECTOR 10 units SC daily INSULIN GLARGINE 98638371969 No Longer Active Rola ARGUETA Active NAPROXEN SODIUM 220 MG ORAL TABLET 1 three times a day as needed NAPROXEN SODIUM 89421207671 No Longer Active Baltazar Childers MD Active ATORVASTATIN CALCIUM 20 MG ORAL TABLET Take 1 tab daily ATORVASTATIN CALCIUM 30209306960 Active Fanny Hudson MA Act amie FUROSEMIDE 40 MG ORAL TABLET Take one by mouth daily FUROSEMIDE 26121494989 Active Fanny Hudson MA Active LISINOPRIL 20 MG ORAL TABLET Take one by mouth daily at bedtime LISINOPRIL 86229190236 No Longer Active Baltazar Childers MD Active ONETOUCH ULTRA BLUE IN VITRO STRIP Test twice a day 07/11/11 GLUCOSE BLOOD 08439715412 No Longer Active Baltazar Childers MD Acti ve TRUEPLUS LANCETS 33G Test twice a day LANCETS 0453707 2082 Active KENDALL Juarez Active TRUEDRAW LANCING DEVICE Test twice a day LANCET DEVICES 52555987833 Active Baltazar Childesr MD Active TRUETRACK BLOOD GLUCOSE w/Device KIT Test twice a day BLOOD GLUCOSE MONITORING SUPPL 26498071295 Active Baltazar Childers MD Activ e GABAPENTIN 300 MG ORAL CAPSULE 1 po qd x 2 days, then 1 po BID x 2 days, then 1 po TID GABAPENTIN 68786551322 No Longer Active Baltazar Childers MD Active NAPROXEN 500 MG ORAL TABLET 1 tablet by mouth twice daily NAPROXEN 59784258391 No Longer Active Baltazar Childers MD Active PROAIR HFA 108 (90 Base) MCG/ACT INHALATION AEROSOL SO LUTION 2 puffs four times a day as needed ALBUTEROL SULFATE 18924660999 Active Kun Hudson MA Active DEPO-TESTOSTERONE 200 MG/ML INTRAMUSCULAR SOLUTION as directed TESTOSTERONE CYPIONATE 62007547631 No Longer Active Baltazar Childers MD Active LIPITOR 20 MG ORAL TABLET Take one by mouth daily in evening ATORVASTATIN CALCIUM 15097005583 No Longer Active Baltazar Childers MD Active CRESTOR 10 MG ORAL TABLET 1 by mouth every day ROSUVASTATIN CALCIUM 12993099403 No Longer Active Baltazar Childers MD Active PHENTERMINE HCL 37.5 MG ORAL TABLET Take one by mouth daily PHENTERMINE HCL 59344066368 No Longer Active Baltazar Childers MD Ac tive TIZANIDINE HCL 4 MG ORAL TABLET 1 daily as needed for muscle spa sm TIZANIDINE HCL 11692159390 No Longer Active Dawna Salazar RN Active [id number] 50-325-40 MG ORAL TABLET 1 fo ur times a day as needed for heacache [id number] 00407727742 Active KENDALL Juarez Active SUMATRIPTAN SUCCINATE 100 MG ORAL TABLET 1 tablet by m outh at onset of migraine as needed SUMATRIPTAN SUCCINATE 89103202326 Active Fanny Hudson MA Active LORATADINE 10 MG ORAL TABLET Take one by mouth daily LORATADINE 85754946141 Active Fanny Hudson MA Active OMEPRAZOLE 20 MG ORAL CAPSULE DELAYED RELEASE Take one by mouth jostin ly OMEPRAZOLE 98433519101 Active Fanny Hudson MA Active HYDROXYZINE HCL 25 MG ORAL TABLET Take one by mouth daily HYDROXYZINE HCL 24935838411 Active Fanny Hudson MA Active ALPRAZOLAM 1 MG ORAL TABLET 1 [facility] 09582796397 Active Fanny Hudson MA Active METFORMIN HCL 1000 MG ORAL TABLET Take one by mouth twice daily METFORMIN HCL 79361669870 Active Fanny Hudson MA Active TIZANIDINE HCL 4 MG ORAL TABLET 1 daily as needed for muscle spa sm TIZANIDINE HCL 4 MG ORAL TABLET 281110 TIZANIDINE HCL Inactive PHENTERMINE HCL 37.5 MG ORAL TABLET Take one by mouth daily PHENTERMINE HCL 37.5 MG ORAL TABLET 880102 PHENTERMINE HCL Inac tive CRESTOR 10 MG ORAL TABLET 1 by mouth every day CRESTOR 10 MG ORAL TABLET 753732 ROSUVASTATIN CALCIUM Inactive LIPITOR 20 MG ORAL TABLET Take one by mouth daily in evening LIPITOR 20 MG ORAL TABLET 785993 ATORVASTATIN CALCIUM Inactive DEPO-TESTOSTERONE 200 MG/ML INTRAMUSCULAR SOLUTION as directed DEPO-TESTOSTERONE 200 MG/ML INTRAMUSCULAR SOLUTION 6621672 RUFINO TOSTERONE CYPIONATE Inactive NAPROXEN 500 MG ORAL TABLET 1 tablet by mouth twice daily NAPROXEN 500 MG ORAL TABLET 752958 NAPROXEN Inactive GABAPENTIN 300 MG ORAL CAPSULE 1 po qd x 2 days, then 1 po BID x 2 days, then 1 po TID GABAPENTIN 300 MG ORAL CAPSULE 983221 GABAP ENTIN Inactive ONETOUCH ULTRA BLUE IN VITRO STRIP Test twice a day 07/11/11 ONETOUCH ULTRA BLUE IN VITRO STRIP GLUCOSE BLOOD Inact amie NAPROXEN SODIUM 220 MG ORAL TABLET 1 three times a day as needed NAPROXEN SODIUM 220 MG ORAL TABLET 21399046617 NAPROXEN SODI UM Inactive TOUJEO SOLOSTAR 300 UNIT/ML SUBCUTANEOUS SOLUTION PEN- INJECTOR 10 units SC daily TOUJEO SOLOSTAR 300 UNIT/ML SUBCUTANEOUS SOLUTION PEN-INJECTOR INSULIN GLARGINE Inactive SUCRALFATE 1 GM ORAL TABLET 1 four times a day to coat the stoma ch SUCRALFATE 1 GM ORAL TABLET 336825 SUCRALFATE Inac tive GABAPENTIN 300 MG ORAL CAPSULE 1 three times a day 201 12/03/26 GABAPENTIN 300 MG ORAL CAPSULE 251306 GABAPENTIN Inactive TRAMADOL HCL 50 MG ORAL TABLET 1 twice a day as needed for pain TRAMADOL HCL 50 MG ORAL TABLET 363557 TRAMADOL HCL I nactive ZITHROMAX Z-ISAIAS 250 MG ORAL TABLET Take two tablets to day and then 1 tablet daily for 4 days ZITHROMAX Z-ISAIAS 250 MG ORAL TAB LET 439117 AZITHROMYCIN Inactive Immunizations Vaccine Administration Date Value Standard Floyd cription influenza immunization (Flu Vax) has been administered 05/11 Done according to patient influenza virus vaccine, unspecified for mulation pneumococcal immunization administered Pneumovax 23 [CVX33] pneumococcal polysaccharide vaccine, 23 valent Seasonal influenza vaccine, injectable, containing preservative, for > 3 years old (Afluria, FluLaval, Fluzone, Fluvirin, Fluarix, Agriflu(>= 18 yo)) Fluzone (>3 yrs.) [XCZ341] Influenza, seasonal, inject able Seasonal influenza vaccine, injectable, containing preservative, for > 3 years old (Afluria, FluLaval, Fluzone, Fluvirin, Fluarix, Agriflu(>= 18 yo)) Fluzone (>3 yrs.) [VSF726] Influenza, seasonal, inject able Vital Signs Date [...] weight E&M 230 [lb_av] Weight Measure d Diagnostic Results Date Name Value Unit Range Description Lab Report: Basic Metabolic Panel - Chem istry sodium, serum 136 mmol/L 858-571 2204/06/04 potassium, serum 4.9 mmol/L 3.5-5.2 chloride, serum 97 mmol/L 98-107 carbon dioxide, venous blood 35.3 mmol/L 21.0-32 .0 blood glucose 239 mg/dL 65-95 calcium, serum 10.6 mg/dL 8.5-10.1 urea nitrogen, blood 31 mg/dL 7-18 creatinine, serum 2.33 mg/dL 0.60-1.30 Estimated Glomerular Filtration Rate (calc) 23 (?) mL/min/1.73m2 = OR > 60 mL/min sodium, serum 141 mmol/L 601-197 4475/07/09 potassium, serum 4.9 mmol/L 3.5-5.2 chloride, serum [...] C - Chemistry sodium, serum 137 mmol/L 721-146 1342/10/17 potassium, serum 4.9 mmol/L 3.5-5.2 chloride, serum [...] 0.40 mg/dL 0.00-1.00 cholesterol, serum 218 mg/dL 730-318 9670/12/18 triglyceride, serum, fasting 357 mg/dL 30-200 HDL cholesterol, serum 49 mg/dL 32-60 LDL cholesterol, serum 103.00 mg/dL 5.00-130.00 hemoglobin A1C, blood, as % of total hemoglobin 8.5 % 4.3-6.0 sodium, serum 142 mmol/L 683-136 4350/12/18 carbon dioxide, venous blood 32.5 mmol/L 21.0-32 [...] ... - Lab Alkaline phosphatase 63 50-136 Office Visit: pap., tumor - Toxicology drug screen, urine, qualitative Ordered Encounters Code Encounter Date Provider Facility CPT-01817 [id number] Vst-Est Level IV 15:48:51 FLIGHT DATA TECHNICIAN Charlie Childers MD [facility] CPT-92713 [id number] Vst-Est Level V 14:28:39 CDT Aneudy Childers MD [facility] CPT-12604 33045-Hcm Vst-Est Level IV 15:03:32 CDT Charlie Childers MD [facility] CPT-56515 [id number] Vst-Est Level III 15:51:57 CDT Baltazar Childers MD [facility] CPT-68237 [id number] Vst-Est Level IV 15:14:58 CDT Charlie Childers MD [facility] CPT-66000 45549-Swv Vst-Est Level IV 15:12:52 FLIGHT DATA TECHNICIAN Charlie Childers MD [facility] CPT-63027 04522-Jib Vst-Est Level IV 15:30:55 FLIGHT DATA TECHNICIAN Charlie Childers MD [facility] CPT-01322 46893-Vzc Vst-Est Level IV 13:49:06 C DT Ann Martinez [facility]-05665 Level 4 Est. Patient 17:26:08 CDT Ann trujillo [facility] CPT-15271 65936-Drv Vst-Est Level V 14:26:27 CDT Aneudy Childers MD [facility] CPT-88956 Level 4 Est. Patient 17:05:37 CDT Baltazar Childers MD [facility] CPT-66175 Level 4 Est. Patient 16:21:19 FLIGHT DATA TECHNICIAN Baltazar Childers MD [facility]-26192 Level 4 Est. Patient 12:25:11 CDT Baltazar Childers MD [facility] CPT-01699 Level 4 Est. Patient 14:22:31 CDT Baltazar Childers MD [facility] CPT-20859 Level 4 Est. Patient 15:44:38 CDT Shonna Parker APRN [facility] CPT-01128 Level 4 Est. Patient 11:34:17 CDT Baltazar Childers MD [facility] CPT-71313 Level 3 Est. Patient 16:40:40 CDT Baltazar Childers MD [facility] CPT-14713 Level 4 Est. Patient 10:41:24 CDT Baltazar Childers MD [facility] CPT-02229 Level 4 Est. Patient 16:01:48 CDT Baltazar Childers MD [facility] CPT-88993 Level 4 Est. Patient 16:54:07 FLIGHT DATA TECHNICIAN Baltazar Childers MD [facility]-30951 Level 4 Est. Patient 15:42:12 CDT Baltazar Childers MD [facility] CPT-02403 Level 4 Est. Patient 11:29:55 CDT Baltazar Childers MD [facility] CPT-05024 Level 4 Est. Patient 14:15:19 CDT Baltazar Childers MD [facility] CPT-36839 Level 4 Est. Patient 12:20:13 CDT Baltazar Childers MD [facility] CPT-86295 Level 4 Est. Patient 14:52:45 FLIGHT DATA TECHNICIAN Baltazar Childers MD [facility] CPT-64892 Level 4 Est. Patient 14:18:34 FLIGHT DATA TECHNICIAN Baltazar Childers MD [facility] CPT-99077 Level 4 Est. Patient 15:18:29 CDT Baltazar Childers MD [facility] CPT-48204 Level 3 Est. Patient 12:45:34 CDT Baltazar Childers MD [facility] CPT-43289 Level 3 Est. Patient 10:10:11 CDT Baltazar Childers MD [facility] CPT-19400 Level 3 Est. Patient 14:07:50 CDT Baltazar Childers MD [facility] CPT-54750 Level 4 Est. Patient 12:26:10 FLIGHT DATA TECHNICIAN Baltazar Childers MD [facility] CPT-06825 Level 4 Est. Patient 14:45:38 CDT Baltazar Childers MD [facility] CPT-92861 Level 4 New Patient 12:30:48 CDT Baltazar hinton MD [facility] Procedures Code Procedure Name Date Entry Date Standard Desc ription CPT-87794 Venipuncture Draw Fee 17:47:23 CDT CPT-85387 4M Drug Screen cup test, Multi-panel, urine 2018 14:28:39 CDT CPT-39989 Venipuncture Draw Fee 15:19:00 CDT CPT-000 Give Appropriate Flu Vaccine 12:25:14 CDT 2 CPT-47894 First Vx - Ix admin via ID I M or jet injects without counseling by physician 13:08:59 CDT CPT-10120 Fluzone Quadrivalent Intramuscular Suspe nsion 0.5 ML 13:08:59 CDT CPT-30148 Venipuncture Draw Fee 12:04:12 CDT CPT-01775 Lipid - LAB USE ONLY 17:39:15 FLIGHT DATA TECHNICIAN 9 CPT-22583 HGBA1C - LAB USE ONLY 17:39:15 FLIGHT DATA TECHNICIAN CPT-50276 CMP - LAB USE ONLY 17:39:14 FLIGHT DATA TECHNICIAN CPT-98093 Venipuncture Draw Fee 17:39:14 FLIGHT DATA TECHNICIAN CPT-24072 First Vx - Ix admin via ID I M or jet injects without counseling by physician 16:55:17 FLIGHT DATA TECHNICIAN CPT-91311 Fluzone Quadrivalent Intramuscular Suspe nsion 0.5 ML 16:55:17 FLIGHT DATA TECHNICIAN CPT-37409 Renal Panel - LAB USE ONLY 17:39:20 CDT 201 10/31/07 CPT-39397 CBC - LAB USE ONLY 17:39:20 CDT CPT-21958 Venipuncture Draw Fee 17:39:20 CDT CPT-16721 Venipuncture Draw Fee 14:33:30 CDT CPT-14419 Renal Panel - LAB USE ONLY 14:33:30 CDT 201 10/31/07 CPT-45038 CBC - LAB USE ONLY 14:33:29 CDT CPT-28313 Venipuncture Draw Fee 14:50:21 FLIGHT DATA TECHNICIAN CPT-56509 Immunization Single Admin 17:35:35 CDT 2014 CPT-41030 Fluzone Quadrivalent preservative free ( >=3yrs.) 17:35:35 CDT CPT-77391 Venipuncture Draw Fee 12:10:27 FLIGHT DATA TECHNICIAN CPT-20344 Fluzone Quadrivalent Intramuscular Suspe nsion 0.5 ML 10:49:13 CDT CPT-70692 First Vx Component - Ix admi n via ID IM or jet inj without physician counseling 15:17:19 FLIGHT DATA TECHNICIAN CPT-26864 Pneumovax 15:17:19 FLIGHT DATA TECHNICIAN CPT-47673 Pneumovax 14:52:45 FLIGHT DATA TECHNICIAN CPT-24343 Venipuncture Draw Fee 14:06:30 FLIGHT DATA TECHNICIAN CPT-000 Give Appropriate Flu Vaccine 14:18:34 FLIGHT DATA TECHNICIAN 2 CPT-00551 Administration single or combination vac cine inc oral 14:46:00 FLIGHT DATA TECHNICIAN CPT-65423 Influenza split virus > age 3 14:46:00 FLIGHT DATA TECHNICIAN CPT-OV Office Visit 19:13:16 CDT CPT-56032 Zostavax 18:41:56 CDT CPT-00303 Administration single or combination vac cine inc oral 12:56:39 CDT CPT-09654 Zoster Vaccine (Zostavax) 12:56:39 CDT 2012 CPT-65068 Venipuncture Draw Fee 10:58:57 CDT CPT-25680 Sono pelvis non OB uterus ovaries cervix 17:45:04 CDT CPT-43264 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
--- OUTSIDE RECORDS SUMMARY | 2019-10-27 12:07 | XMS REPORT | Clinical Summary ---
Author Author Admin, Elba Lance 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 Benign neoplasm of colon PERIPHERAL NEUROPATHY 356.9 [...] ronary atherosclerosis of unspecified type of vessel, [place] or graft OTH NONSPC ABN FINDNG [...] tablet by mouth daily LE VOTHYROXINE SODIUM 47597166581 Active Carina Tucker LPN Active GLIPIZIDE 10 MG TAB take 2 tablets twice daily GLIPIZIDE 65766179897 Active Carina Tucker LPN Active SUCRALFATE 1 GM TABS 1 four times a day to coat the stomach 2015 SUCRALFATE 31947528476 No Longer Active Baltazar Childers MD Active PEN NEEDLES 31G X 6 MM MISC use 1 daily INSULIN PEN NEEDLE 04079779618 Active Bella Suarez VEIN ACCESS TECHNICIAN Active TOURINKUO SOLOSTAR 300 UNIT/ML SC SOPN 10 units SC daily INSULIN GLARGINE 01365073313 No Longer Active Martita Godinez KENDALL Active LANTUS SOLOSTAR 100 UNIT/ML SC SOPN 10 units SC daily INSULIN GLARGINE 35954992632 Active Baltazar Childers MD Active NAPROXEN SODIUM 220 MG ORAL TABS 1 three times a day as needed 2 NAPROXEN SODIUM 40887414502 No Longer Active Baltazar Childers MD Active ATORVASTATIN CALCIUM 20 MG ORAL TABS Take 1 tab daily ATORVASTATIN CALCIUM 15869961835 Active Baltazar Childers MD Active FUROSEMIDE 40 MG TABS Take one by mouth daily FUROSEMIDE 61972047953 Active Baltazar Childers MD Active LISINOPRIL 20 MG TABS Take one by mouth daily at bedtime LISINOPRIL 70260594143 Active KENDALL Juarez Active ONETOUCH ULTRA BLUE STRP Test twice a day GLUCO SE BLOOD 87041089499 No Longer Active Baltazar Childers MD Active TRUEPLUS LANCETS 33G MISC Test twice a day LANCET S 64090119076 Active KENDALL Juarez Active TRUEDRAW LANCING DEVICE MISC Test twice a day L ANCET DEVICES 16603831977 Active Baltazar Childers MD Active TRUETRACK TEST STRP Test twice a day GLUCOSE BLOO D 12089853257 Active KENDALL Juarez Active TRUETRACK BLOOD GLUCOSE W/DEVICE KIT Test twice a day BLOOD GLUCOSE MONITORING SUPPL 70800022184 Active Baltazar Childers MD Activ e HYDROCODONE-ACETAMINOPHEN 7.5-325 MG TABS Take 1 tab every 6-8 hour s PRN HYDROCODONE-ACETAMINOPHEN 81746523457 Active Shonna Parker APRN Active NORTRIPTYLINE HCL 50 MG CAPS 1 every night for neuropathy 4 NORTRIPTYLINE HCL 51290260872 Active Baltazar Childers MD Acti ve GABAPENTIN 300 MG CAPS 1 three times a day GABAPE NTIN 70519201281 Active KENDALL Juarez Active GABAPENTIN 300 MG CAPS 1 po qd x 2 days, then 1 po BID x 2 d ays, then 1 po TID GABAPENTIN 11598576270 No Longer Active Baltazar silverman MD Active TRAMADOL HCL 50 MG TABS 1 twice a day as needed for pain TRAMADOL HCL 11527276731 Active Shonna Parker APRN Active NAPROXEN 500 MG TABS 1 tablet by mouth twice daily NAPROXEN 93117551609 No Longer Active Baltazar Childers MD Active PROAIR HFA 108 (90 BASE) MCG/ACT AERS 2 puffs four times a d ay as needed ALBUTEROL SULFATE 05966787430 Active KENDALL Juarez Active DEPO-TESTOSTERONE 200 MG/ML OIL as directed RUFINO TOSTERONE CYPIONATE 75934603249 No Longer Active Baltazar Childers MD Active LIPITOR 20 MG TABS Take one by mouth daily in evening ATORVASTATIN CALCIUM 99543591387 No Longer Active Baltazar Childers MD Activ e CRESTOR 10 MG TABS 1 by mouth every day R OSUVASTATIN CALCIUM 79798594028 No Longer Active Baltazar Childers MD Activ e PHENTERMINE HCL 37.5 MG TABS Take one by mouth daily 2 PHENTERMINE HCL 77443153080 No Longer Active Baltazar Childers MD Activ e ROBAXIN-750 750 MG TABS Take one by mouth daily ME THOCARBAMOL 89364091200 Active Baltazar Childers MD Active TIZANIDINE HCL 4 MG TABS 1 daily as needed for muscle spasm 2011 TIZANIDINE HCL 73365834229 No Longer Active Dawna Salazar RN Active LOVPYXGPSF-GCTD-UANLMLIH 50-325-40 MG TABS 1 four time s a day as needed for heacache GLUFSNXDOR-DPTB-AHLGNDRO 06431204267 Active Shonna Parker APRN Active SUMATRIPTAN SUCCINATE 100 MG TABS 1 tablet by mouth at onset of migraine as needed SUMATRIPTAN SUCCINATE 43786202106 Active Shonna Kasi er VEIN ACCESS TECHNICIAN Active LORATADINE 10 MG TABS Take one by mouth daily LORATADINE 64112304400 Active Baltazar Childers MD Active OMEPRAZOLE 20 MG CPDR Take one by mouth daily OMEPRAZOLE 11552247186 Active KENDALL Juarez Active HYDROXYZINE HCL 25 MG TABS Take one by mouth daily HYDROXYZINE HCL 95960001164 Active Baltazar Childers MD Active ALPRAZOLAM 1 MG TABS 1 tablet by mouth daily at bedtime for restles s leg ALPRAZOLAM 70436786696 Active Baltazar Childers MD Active METFORMIN HCL 1000 MG TABS Take one by mouth twice daily METFORMIN HCL 85789000710 Active Baltazar Childers MD Active NAPROXEN 500 MG TABS 1 tablet by mouth twice daily 201 07/27/22 NAPROXEN 500 MG TABS 690436 NAPROXEN Inactive PHENTERMINE HCL 37.5 MG TABS Take one by mouth daily 2 PHENTERMINE HCL 37.5 MG TABS 934895 PHENTERMINE HCL Inactive SUCRALFATE 1 GM TABS 1 four times a day to coat the stomach 2015 SUCRALFATE 1 GM TABS 595561 SUCRALFATE Inactive NAPROXEN SODIUM 220 MG ORAL TABS 1 three times a day as needed 2 NAPROXEN SODIUM 220 MG ORAL TABS 230662 NAPROXEN SODIUM Inactive TIZANIDINE HCL 4 MG TABS 1 daily as needed for muscle spasm 2011 TIZANIDINE HCL 4 MG TABS 388320 TIZANIDINE HCL Inactiv e GABAPENTIN 300 MG CAPS 1 po qd x 2 days, then 1 po BID x 2 d ays, then 1 po TID GABAPENTIN 300 MG CAPS 020193 GABAPENTIN Inact amie LIPITOR 20 MG TABS Take one by mouth daily in evening LIPITOR 20 MG TABS 275863 ATORVASTATIN CALCIUM Inactive ONETOUCH ULTRA BLUE STRP Test twice a day ONETOUCH ULTRA BLUE STRP GLUCOSE BLOOD Inactive CRESTOR 10 MG TABS 1 by mouth every day C RESTOR 10 MG TABS 076314 ROSUVASTATIN CALCIUM Inactive DEPO-TESTOSTERONE 200 MG/ML OIL as directed 8 DEPO-TESTOSTERONE 200 MG/ML OIL 504701 TESTOSTERONE CYPIONATE Inactive TOUJEO SOLOSTAR 300 UNIT/ML SC SOPN 10 units SC daily TOUJEO SOLOSTAR 300 UNIT/ML SC SOPN INSULIN GLARGINE Inac tive Immunizations Vaccine Administration Date Value Standard Floyd cription pneumococcal immunization administered Pneumovax 23 [CVX33] pneumococcal polysaccharide vaccine, 23 valent Seasonal influenza vaccine, injectable, containing preservative, for > 3 years old (Afluria, FluLaval, Fluzone, Fluvirin, Fluarix, Agriflu(>= 18 yo)) Fluzone (>3 yrs.) [[id number]] Influenza, seasonal, inject able Seasonal influenza vaccine, injectable, containing preservative, for > 3 years old (Afluria, FluLaval, Fluzone, Fluvirin, Fluarix, Agriflu(>= 18 yo)) Fluzone (>3 yrs.) [[id number]] Influenza, seasonal, inject able Vital Signs Date [...] Panel, HGBA1 C - Chemistry blood glucose 209 mg/dL 65-110 hemoglobin A1C, blood, as % of total hemoglobin 8.3 % 4.3-6.0 creatinine, serum 1.89 mg/dL 0.55-1.30 urea nitrogen, blood 14 mg/dL 7-18 calcium, serum 9.8 mg/dL 8.5-10.1 carbon dioxide, venous blood 33.8 mmol/L 21.0-32 .0 chloride, serum 99 mmol/L 98-107 potassium, serum 4.5 mmol/L 3.5-5.2 sodium, serum 139 mmol/L 136-145 Lab Report: CBC - Hematology leukocyte count, blood 8.0 10^3/MM^3 10*3/mm3 4.6-10.2 mean corpuscular hemoglobin concentration, RBC 33.4 G/DL % 31.8-35.4 red blood cell distribution width 16.2 % 11 .6-14.8 platelet count 345 10^3/MM^3 10*3/mm3 372-006 5842/08/08 erythrocyte (RBC) count 3.75 10^6/MM^3 10*6/mm3 4.04-5.4 8 hemoglobin, blood 12.2 g/dL 12.0-16.0 hematocrit, blood 36.5 % 36.0-46.0 mean corpuscular volume, RBC 97 fL 80-97 mean corpuscular hemoglobin, RBC 32.5 pg 27. 0-31.2 Lab Report: Comp. Metabolic Panel, Lipid Panel - Chemistry bilirubin, serum, total 0.30 mg/dL 0.00-1.00 cholesterol, serum 214 mg/dL 723-660 9470/12/19 triglyceride, serum, fasting 351 mg/dL 30-200 HDL cholesterol, serum 52 mg/dL 32-96 LDL cholesterol, serum 92 mg/dL 0-130 urea nitrogen, blood 18 mg/dL 7-18 sodium, serum 143 mmol/L 555-794 2681/12/19 carbon dioxide, venous blood 32.5 mmol/L 21.0-32 .0 potassium, serum 4.9 mmol/L 3.5-5.2 chloride, serum 101 mmol/L 98-107 blood glucose 129 mg/dL 65-110 creatinine, serum 1.79 mg/dL 0.55-1.30 alanine aminotransferase (SGPT), serum 34 U/L 12-78 aspartate aminotransferase (SGOT), serum 26 U/L 15-37 calcium, serum 8.9 mg/dL 8.5-10.1 Lab Report: HEMOGLOBIN A1c, MicroAlb Ran dom w/creat/6517, Urinalysis, Co ... - Urinalysis microalbumin/total urine volume 9 mg/L Units converted. See lab report for original value. microalbumin/creatinine ratio, urine 24 MCG/MG CREAT mg/L <30 Lab Report: HGBA1C - Chemistry hemoglobin A1C, blood, as % of total hemoglobin 7.3 % 4.3-6.0 Lab Report: Renal Panel - Chemistry sodium, serum 141 mmol/L 831-078 7096/08/08 potassium, serum 4.9 mmol/L 3.5-5.2 chloride, serum 101 mmol/L 98-107 carbon dioxide, venous blood 34.1 mmol/L 21.0-32 .0 creatinine, serum 1.98 mg/dL 0.55-1.30 blood glucose 193 mg/dL 65-110 urea nitrogen, blood 30 mg/dL 7-18 calcium, serum 9.8 mg/dL 8.5-10.1 Encounters Code Encounter Date Provider Facility CPT-43985 Level 4 Est. Patient 15:44:38 CDT Shonna Parker APRN [facility] CPT-79009 Level 4 Est. Patient 11:34:17 CDT Baltazar Childers MD [facility] CPT-46198 Level 3 Est. Patient 16:40:40 CDT Baltazar Childers MD [facility] CPT-33425 Level 4 Est. Patient 10:41:24 CDT Baltazar Childers MD [facility]-32203 Level 4 Est. Patient 16:01:48 CDT Baltazar Childers MD [facility]-16209 Level 4 Est. Patient 16:54:07 WAREHOUSE CONSULTANT Baltazar Childers MD [facility]-34037 Level 4 Est. Patient 15:42:12 CDT Baltazar Childers MD [facility] CPT-10595 Level 4 Est. Patient 11:29:55 CDT Baltazar Childers MD [facility]-43397 Level 4 Est. Patient 14:15:19 CDT Baltazar Childers MD [facility]-03831 Level 4 Est. Patient 12:20:13 CDT Baltazar Childers MD [facility]-36770 Level 4 Est. Patient 14:52:45 WAREHOUSE CONSULTANT Baltazar Childers MD [facility] CPT-05436 Level 4 Est. Patient 14:18:34 WAREHOUSE CONSULTANT Baltazar Childers MD [facility]-42635 Level 4 Est. Patient 15:18:29 CDT Baltazar Childers MD [facility] CPT-81893 Level 3 Est. Patient 12:45:34 CDT Baltazar Childers MD [facility] CPT-35250 Level 3 Est. Patient 10:10:11 CDT Baltazar Childers MD [facility] CPT-67348 Level 3 Est. Patient 14:07:50 CDT Baltazar Childers MD [facility]-98873 Level 4 Est. Patient 12:26:10 WAREHOUSE CONSULTANT Baltazar Childers MD [facility]-26170 Level 4 Est. Patient 14:45:38 CDT Baltazar Childers MD [facility] CPT-78921 Level 4 New Patient 12:30:48 CDT Baltazar hinton MD [facility] Procedures Code Procedure Name Date Entry Date Standard Desc ription CPT-06227 Lipid - LAB USE ONLY 17:39:15 WAREHOUSE CONSULTANT 9 CPT-61078 HGBA1C - LAB USE ONLY 17:39:15 WAREHOUSE CONSULTANT CPT-77725 CMP - LAB USE ONLY 17:39:14 WAREHOUSE CONSULTANT CPT-47484 Venipuncture Draw Fee 17:39:14 WAREHOUSE CONSULTANT CPT-32695 First Vx - Ix admin via ID I M or jet injects without counseling by physician 16:55:17 WAREHOUSE CONSULTANT CPT-12690 Fluzone Quadrivalent Intramuscular Suspe nsion 0.5 ML 16:55:17 WAREHOUSE CONSULTANT CPT-46462 Renal Panel - LAB USE ONLY 17:39:20 CDT 201 10/31/07 CPT-34196 CBC - LAB USE ONLY 17:39:20 CDT CPT-76172 Venipuncture Draw Fee 17:39:20 CDT CPT-82382 Venipuncture Draw Fee 14:33:30 CDT CPT-29407 Renal Panel - LAB USE ONLY 14:33:30 CDT 201 10/31/07 CPT-37587 CBC - LAB USE ONLY 14:33:29 CDT CPT-20492 Venipuncture Draw Fee 14:50:21 WAREHOUSE CONSULTANT CPT-95875 Immunization Single Admin 17:35:35 CDT 2014 CPT-56116 Fluzone Quadrivalent preservative free ( >=3yrs.) 17:35:35 CDT CPT-35185 Venipuncture Draw Fee 12:10:27 WAREHOUSE CONSULTANT CPT-60829 Fluzone Quadrivalent Intramuscular Suspe nsion 0.5 ML 10:49:13 CDT CPT-87886 First Vx Component - Ix admi n via ID IM or jet inj without physician counseling 15:17:19 WAREHOUSE CONSULTANT CPT-48753 Pneumovax 23 15:17:19 WAREHOUSE CONSULTANT CPT-55381 Pneumovax 14:52:45 WAREHOUSE CONSULTANT CPT-36008 Venipuncture Draw Fee 14:06:30 WAREHOUSE CONSULTANT CPT-000 Give Appropriate Flu Vaccine 14:18:34 WAREHOUSE CONSULTANT 2 CPT-98563 Administration single or combination vac cine inc oral 14:46:00 WAREHOUSE CONSULTANT CPT-11638 Influenza split virus > age 3 14:46:00 WAREHOUSE CONSULTANT CPT-OV Office Visit 19:13:16 CDT CPT-10414 Zostavax 18:41:56 CDT CPT-47210 Administration single or combination vac cine inc oral 12:56:39 CDT CPT-90539 Zoster Vaccine (Zostavax) 12:56:39 CDT 2012 CPT-66649 Venipuncture Draw Fee 10:58:57 CDT CPT-31390 Sono pelvis non OB uterus ovaries cervix 17:45:04 CDT CPT-73292 Sono retroperitoneal complete kidneys an d bladder 17:14:36 CDT CPT-OV Office Visit 14:59:38 WAREHOUSE CONSULTANT CPT-J1070 Depo Testosterone 100 mg 14:50:13 CDT 03/05 CPT-78272 Abx/Therapy Injection 14:50:13 CDT CPT-02088 Administration single or combination vac cine inc oral 14:34:43 CDT CPT-17967 Influenza split virus > age 3 14:34:43 CDT CPT-J1070 Depo Testosterone 100 mg 17:37:13 CDT 01/11 CPT-25266 Abx/Therapy Injection 17:37:13 CDT CPT-80755 Venipuncture Draw Fee 16:30:13 CDT CPT-97612 Venipuncture Draw Fee 16:29:43 CDT CPT-J1070 Depo Testosterone 100 mg 14:45:38 CDT 01/11
--- OUTSIDE RECORDS SUMMARY | 2019-10-27 12:08 | XMS REPORT | Clinical Summary ---
Author Author Admin, Elba Lance KXEN Address Unknown Phone Unavailable Allergies, Adverse Reactions, [...] Morbid obesity due to excess calories 278.01 [facility] t Baltazar Childers MD Morbid obesity Obesity Class II (BMI 35-39.9) 278.01 Refinement 10/26 Baltazar Childers MD Morbid obesity Morbid obesity due to excess calories 278.01 [facility] t Baltazar Childers MD Morbid obesity Obesity Class II (BMI 35-39.9) 278.01 Refinement 01/19 Baltazar Childers MD Morbid obesity Morbid obesity due to excess calories 278.01 [facility] t Baltazar Childers MD Morbid [...] ronary atherosclerosis of unspecified type of vessel, [place] or graft OTH NONSPC ABN FINDNG RAD&OTH [...] 5 units with every meal INSULIN LISPRO 71109268606 Active Fadumo Ruiz Active HYDROCODONE-ACETAMINOPHEN 7.5-325 MG ORAL TABLET Take 1 tab every 6-8 hours PRN HYDROCODONE-ACETAMINOPHEN 11951005343 Active Baltazar Nickerson MD Active NOVOLOG 100 UNIT/ML SUBCUTANEOUS SOLUTION 5 units with each meal. 2 INSULIN ASPART 72936323943 No Longer Active Fanny Hudson MA Activ e ONGLYZA 2.5 MG TABS TAKE 1 TABLET BY MOUTH EVERY DAY FOR DIABETES 2 SAXAGLIPTIN HCL 63951775292 Active Fanny Hudson MA Active GLIPIZIDE 10MG TABLETS TAKE 2 TABLETS BY MOUTH TWICE DAILY GLIPIZIDE 78374205974 Active Fanny Hudson MA Active TRUE METRIX B/G TEST STRIPS 25'S TEST BLOOD SUGAR TWICE DAILY 03/02 GLUCOSE BLOOD 36603168514 Active KENDALL Juarez Active LEVOTHYROXINE 0.112MG (112MCG) TABS TAKE 1 TABLET BY MOUTH EVERY DAY LEVOTHYROXINE SODIUM 05924117469 Active Fanny Hudson MA Active AMLODIPINE BESYLATE 5MG TABLETS TAKE 1 TABLET BY MOUTH EVERY DAY FOR HYPERTENSION AMLODIPINE BESYLATE 66068418659 Active Estefania Hudson MA Active LANTUS SOLOSTAR 100 UNIT/ML SUBCUTANEOUS SOLUTION PEN- INJECTOR 20 units am and 13 units at night INSULIN GLARGINE 34997095882 Active Fanny Hudson MA Active TRAMADOL HCL 50 MG ORAL TABLET 1 twice a day as needed for pain TRAMADOL HCL 19401934564 No Longer Active Baltazar Childers MD Active ROBAXIN 500 MG ORAL TABLET Take 1.5 (one and one half) tabs once daily METHOCARBAMOL 37647060574 Active Fanny Hudson MA Active TRUE METRIX AIR GLUCOSE METER DEVICE Use as directed BLOOD GLUCOSE MONITORING SUPPL 36243549504 Active Baltazar Childers MD Activ e NORTRIPTYLINE HCL 50 MG ORAL CAPSULE 1 twice a day for neuropathy 2 NORTRIPTYLINE HCL 94778003958 Active Fanny Hudson MA Active ASPIRIN 81 MG TBEC Take one (1) tablet by mouth daily ASPIRIN 45161023164 Active Baltazar Childers MD Active GABAPENTIN 300 MG ORAL CAPSULE 1 three times a day 201 12/03/26 GABAPENTIN 36592801592 No Longer Active Baltazar Childers MD Activ e LISINOPRIL 20 MG ORAL TABLET 1 tablet by mouth daily at night 2016 LISINOPRIL 42744565001 Active Fanny Hudson MA Active ZITHROMAX Z-ISAIAS 250 MG ORAL TABLET Take two tablets to day and then 1 tablet daily for 4 days AZITHROMYCIN 77079127636 No Longer A ctive Baltazar Childers MD Active SUCRALFATE 1 GM ORAL TABLET 1 four times a day to coat the stoma ch SUCRALFATE 94718814948 No Longer Active Baltazar Childers MD Active PEN NEEDLES 31G X 6 MM use 1 daily INSULIN PEN NE EDLE 03882627856 Active KENDALL Juarez Active CELINA PARIKH 300 UNIT/ML SUBCUTANEOUS SOLUTION PEN- INJECTOR 10 units SC daily INSULIN GLARGINE 06780214129 No Longer Active Rola ARGUETA Active NAPROXEN SODIUM 220 MG ORAL TABLET 1 three times a day as needed NAPROXEN SODIUM 82164770569 No Longer Active Baltazar Childers MD Active ATORVASTATIN CALCIUM 20 MG ORAL TABLET Take 1 tab daily ATORVASTATIN CALCIUM 21429056612 Active Fanny Hudson MA Act amie FUROSEMIDE 40 MG ORAL TABLET Take one by mouth daily FUROSEMIDE 98612276987 Active Fanny Hudson MA Active LISINOPRIL 20 MG ORAL TABLET Take one by mouth daily at bedtime LISINOPRIL 29815587856 No Longer Active Baltazar Childers MD Active ONETOUCH ULTRA BLUE IN VITRO STRIP Test twice a day 07/11/11 GLUCOSE BLOOD 41966417315 No Longer Active Baltazar Childers MD Acti ve TRUEPLUS LANCETS 33G Test twice a day LANCETS 2586193 3614 Active KENDALL Juarez Active TRUEDRAW LANCING DEVICE Test twice a day LANCET DEVICES 35400701894 Active Baltazar Childers MD Active TRUETRACK BLOOD GLUCOSE w/Device KIT Test twice a day BLOOD GLUCOSE MONITORING SUPPL 45624747737 Active Baltazar Childers MD Activ e GABAPENTIN 300 MG ORAL CAPSULE 1 po qd x 2 days, then 1 po BID x 2 days, then 1 po TID GABAPENTIN 14284739836 No Longer Active Baltazar Chidlers MD Active NAPROXEN 500 MG ORAL TABLET 1 tablet by mouth twice daily NAPROXEN 81889568682 No Longer Active Baltazar Childers MD Active PROAIR HFA 108 (90 Base) MCG/ACT INHALATION AEROSOL SO LUTION 2 puffs four times a day as needed ALBUTEROL SULFATE 51534880271 Active Kun Hudson MA Active DEPO-TESTOSTERONE 200 MG/ML INTRAMUSCULAR SOLUTION as directed TESTOSTERONE CYPIONATE 89113916864 No Longer Active Baltazar Childers MD Active LIPITOR 20 MG ORAL TABLET Take one by mouth daily in evening ATORVASTATIN CALCIUM 71918244703 No Longer Active Baltazar Childers MD Active CRESTOR 10 MG ORAL TABLET 1 by mouth every day ROSUVASTATIN CALCIUM 68489485884 No Longer Active Baltazar Childers MD Active PHENTERMINE HCL 37.5 MG ORAL TABLET Take one by mouth daily PHENTERMINE HCL 15861343840 No Longer Active Baltazar Childers MD Ac tive TIZANIDINE HCL 4 MG ORAL TABLET 1 daily as needed for muscle spa sm TIZANIDINE HCL 44533294147 No Longer Active Dawna Salazar RN Active [id number] 50-325-40 MG ORAL TABLET 1 fo ur times a day as needed for heacache [id number] 65007027383 Active KENDALL Juarez Active SUMATRIPTAN SUCCINATE 100 MG ORAL TABLET 1 tablet by m outh at onset of migraine as needed SUMATRIPTAN SUCCINATE 01707571425 Active Fanny Hudson MA Active LORATADINE 10 MG ORAL TABLET Take one by mouth daily LORATADINE 60673944715 Active Fanny Hudson MA Active OMEPRAZOLE 20 MG ORAL CAPSULE DELAYED RELEASE Take one by mouth jostin ly OMEPRAZOLE 09069573450 Active Fanny Hudson MA Active HYDROXYZINE HCL 25 MG ORAL TABLET Take one by mouth daily HYDROXYZINE HCL 98512531994 Active Fanny Hudson MA Active ALPRAZOLAM 1 MG ORAL TABLET 1 tablet [facility] ALPRAZOLAM 90677461893 Active Fanny Hudson MA Active METFORMIN HCL 1000 MG ORAL TABLET Take one by mouth twice daily METFORMIN HCL 07668198288 Active Fanny Hudson MA Active TIZANIDINE HCL 4 MG ORAL TABLET 1 daily as needed for muscle spa sm TIZANIDINE HCL 4 MG ORAL TABLET 875694 TIZANIDINE HCL Inactive PHENTERMINE HCL 37.5 MG ORAL TABLET Take one by mouth daily PHENTERMINE HCL 37.5 MG ORAL TABLET 879644 PHENTERMINE HCL Inac tive CRESTOR 10 MG ORAL TABLET 1 by mouth every day CRESTOR 10 MG ORAL TABLET 179675 ROSUVASTATIN CALCIUM Inactive LIPITOR 20 MG ORAL TABLET Take one by mouth daily in evening LIPITOR 20 MG ORAL TABLET 884086 ATORVASTATIN CALCIUM Inactive DEPO-TESTOSTERONE 200 MG/ML INTRAMUSCULAR SOLUTION as directed DEPO-TESTOSTERONE 200 MG/ML INTRAMUSCULAR SOLUTION 7177430 RUFINO TOSTERONE CYPIONATE Inactive NAPROXEN 500 MG ORAL TABLET 1 tablet by mouth twice daily NAPROXEN 500 MG ORAL TABLET 941286 NAPROXEN Inactive GABAPENTIN 300 MG ORAL CAPSULE 1 po qd x 2 days, then 1 po BID x 2 days, then 1 po TID GABAPENTIN 300 MG ORAL CAPSULE 591896 GABAP ENTIN Inactive ONETOUCH ULTRA BLUE IN VITRO STRIP Test twice a day 07/11/11 ONETOUCH ULTRA BLUE IN VITRO STRIP GLUCOSE BLOOD Inact amie NAPROXEN SODIUM 220 MG ORAL TABLET 1 three times a day as needed NAPROXEN SODIUM 220 MG ORAL TABLET 62487820200 NAPROXEN SODI UM Inactive TOUJEO SOLOSTAR 300 UNIT/ML SUBCUTANEOUS SOLUTION PEN- INJECTOR 10 units SC daily TOUJEO SOLOSTAR 300 UNIT/ML SUBCUTANEOUS SOLUTION PEN-INJECTOR INSULIN GLARGINE Inactive SUCRALFATE 1 GM ORAL TABLET 1 four times a day to coat the stoma ch SUCRALFATE 1 GM ORAL TABLET 080232 SUCRALFATE Inac tive GABAPENTIN 300 MG ORAL CAPSULE 1 three times a day 201 12/03/26 GABAPENTIN 300 MG ORAL CAPSULE 796216 GABAPENTIN Inactive TRAMADOL HCL 50 MG ORAL TABLET 1 twice a day as needed for pain TRAMADOL HCL 50 MG ORAL TABLET 506305 TRAMADOL HCL I nactive ZITHROMAX Z-ISAIAS 250 MG ORAL TABLET Take two tablets to day and then 1 tablet daily for 4 days ZITHROMAX Z-ISAIAS 250 MG ORAL TAB LET 353297 AZITHROMYCIN Inactive Immunizations Vaccine Administration Date Value Standard Floyd cription influenza immunization (Flu Vax) has been administered 05/11 Done according to patient influenza virus vaccine, unspecified for mulation pneumococcal immunization administered Pneumovax 23 [CVX33] pneumococcal polysaccharide vaccine, 23 valent Seasonal influenza vaccine, injectable, containing preservative, for > 3 years old (Afluria, FluLaval, Fluzone, Fluvirin, Fluarix, Agriflu(>= 18 yo)) Fluzone (>3 yrs.) [[id number]] Influenza, seasonal, inject able Seasonal influenza vaccine, injectable, containing preservative, for > 3 years old (Afluria, FluLaval, Fluzone, Fluvirin, Fluarix, Agriflu(>= 18 yo)) Fluzone (>3 yrs.) [[id number]] Influenza, seasonal, inject able Vital Signs Date [...] - Chem istry sodium, serum 136 mmol/L 948-730 7107/06/04 potassium, serum 4.9 mmol/L 3.5-5.2 chloride, serum 97 mmol/L 98-107 carbon dioxide, venous blood 35.3 mmol/L 21.0-32 .0 blood glucose 239 mg/dL 65-95 calcium, serum 10.6 mg/dL 8.5-10.1 urea nitrogen, blood 31 mg/dL 7-18 creatinine, serum 2.33 mg/dL 0.60-1.30 Estimated Glomerular Filtration Rate (calc) 23 (?) mL/min/1.73m2 = OR > 60 mL/min sodium, serum 141 mmol/L 186-275 2633/07/09 potassium, serum 4.9 mmol/L 3.5-5.2 chloride, serum [...] C - Chemistry sodium, serum 137 mmol/L 479-884 4554/10/17 potassium, serum 4.9 mmol/L 3.5-5.2 chloride, serum [...] 0.40 mg/dL 0.00-1.00 cholesterol, serum 218 mg/dL 434-678 1357/12/18 triglyceride, serum, fasting 357 mg/dL 30-200 HDL cholesterol, serum 49 mg/dL 32-60 LDL cholesterol, serum 103.00 mg/dL 5.00-130.00 hemoglobin A1C, blood, as % of total hemoglobin 8.5 % 4.3-6.0 sodium, serum 142 mmol/L 763-795 9610/12/18 carbon dioxide, venous blood 32.5 mmol/L 21.0-32 [...] Ordered Encounters Code Encounter Date Provider Facility CPT-53401 43916-Kat Vst-Est Level IV 15:48:51 [employer]NAGER Charlie Childers MD [facility] CPT-88078 49373-Std Vst-Est Level V 14:28:39 CDT Aneudy Childers MD [facility] CPT-51386 03231-Rnc Vst-Est Level IV 15:03:32 CDT Charlie Childers MD [facility] CPT-72740 08434-Mxa Vst-Est Level III 15:51:57 CDT Baltazar Childers MD [facility] CPT-23140 41338-Gnl Vst-Est Level IV 15:14:58 CDT Charlie Childers MD [facility] CPT-43399 49776-Nzm Vst-Est Level IV 15:12:52 [employer]PER[employer] MANAGER Charlie Childers MD [facility] CPT-37749 88631-Eia Vst-Est Level IV 15:30:55 [employer]PER[employer] MANAGER Charlie Childers MD [facility] CPT-80860 06217-Hmd Vst-Est Level IV 13:49:06 C DT Ann Martinez [facility]-94876 Level 4 Est. Patient 17:26:08 CDT Ann trujillo [facility] CPT-13546 96390-Qsr Vst-Est Level V 14:26:27 CDT Aneudy Childers MD [facility] CPT-80358 Level 4 Est. Patient 17:05:37 CDT Baltazar Childers MD [facility] CPT-11060 Level 4 Est. Patient 16:21:19 [employer]HOU[employer]PERATIONS MANAGER Baltaazr Childers MD [facility]-73114 Level 4 Est. Patient 12:25:11 CDT Baltazar Childers MD [facility] CPT-20060 Level 4 Est. Patient 14:22:31 CDT Baltazar Childers MD [facility] CPT-71955 Level 4 Est. Patient 15:44:38 CDT Shonna Parker APRN [facility] CPT-70301 Level 4 Est. Patient 11:34:17 CDT Baltazar Childers MD [facility] CPT-60963 Level 3 Est. Patient 16:40:40 CDT Baltazar Childers MD [facility] CPT-27595 Level 4 Est. Patient 10:41:24 CDT Baltazar Childers MD [facility] CPT-73540 Level 4 Est. Patient 16:01:48 CDT Baltazar Childers MD [facility] CPT-11990 Level 4 Est. Patient 16:54:07 [employer]HOU[employer]PERATIONS MANAGER Baltazar Childers MD [facility]-29885 Level 4 Est. Patient 15:42:12 CDT Baltazar Childers MD [facility] CPT-61601 Level 4 Est. Patient 11:29:55 CDT Baltazar Childers MD [facility] CPT-79585 Level 4 Est. Patient 14:15:19 CDT Baltazar Childers MD [facility] CPT-15830 Level 4 Est. Patient 12:20:13 CDT Baltazar Childers MD [facility] CPT-25864 Level 4 Est. Patient 14:52:45 [employer]ATIONS MANAGER Baltazar Childers MD [facility] CPT-81608 Level 4 Est. Patient 14:18:34 [employer]PER[employer] MANAGER Baltazar Childers MD [facility] CPT-07780 Level 4 Est. Patient 15:18:29 CDT Baltazar Childers MD [facility] CPT-38390 Level 3 Est. Patient 12:45:34 CDT Baltazar Childers MD [facility] CPT-17976 Level 3 Est. Patient 10:10:11 CDT Baltazar Childers MD [facility] CPT-82038 Level 3 Est. Patient 14:07:50 CDT Baltazar Childers MD [facility] CPT-64475 Level 4 Est. Patient 12:26:10 [employer]HOU[employer]PERATIONS MANAGER Baltazar Childers MD [facility] CPT-91119 Level 4 Est. Patient 14:45:38 CDT Baltazar Childers MD [facility] CPT-71723 Level 4 New Patient 12:30:48 CDT Baltazar hinton MD [facility] Procedures Code Procedure Name Date Entry Date Standard Desc ription CPT-80417 Venipuncture Draw Fee 17:47:23 CDT CPT-21790 4M Drug Screen cup test, Multi-panel, urine 2018 14:28:39 CDT CPT-91879 Venipuncture Draw Fee 15:19:00 CDT CPT-000 Give Appropriate Flu Vaccine 12:25:14 CDT 2 CPT-23893 First Vx - Ix admin via ID I M or jet injects without counseling by physician 13:08:59 CDT CPT-37283 Fluzone Quadrivalent Intramuscular Suspe nsion 0.5 ML 13:08:59 CDT CPT-82243 Venipuncture Draw Fee 12:04:12 CDT CPT-98484 Lipid - LAB USE ONLY 17:39:15 [employer] MANAGER 9 CPT-86053 HGBA1C - LAB USE ONLY 17:39:15 [employer]HOU[employer]PERATIONS MANAGER CPT-22884 CMP - LAB USE ONLY 17:39:14 [employer]HOUSE [employer]PERATIONS MANAGER CPT-64694 Venipuncture Draw Fee 17:39:14 [employer]HOUSE [employer]PERATIONS MANAGER CPT-62504 First Vx - Ix admin via ID I M or jet injects without counseling by physician 16:55:17 W[employer]HOUSE [employer]PERATIONS MANAGER CPT-42357 Fluzone Quadrivalent Intramuscular Suspe nsion 0.5 ML 16:55:17 [employer]HOUSE [employer]PERATIONS MANAGER CPT-09031 Renal Panel - LAB USE ONLY 17:39:20 CDT 201 10/31/07 CPT-11578 CBC - LAB USE ONLY 17:39:20 CDT CPT-82119 Venipuncture Draw Fee 17:39:20 CDT CPT-27197 Venipuncture Draw Fee 14:33:30 CDT CPT-67923 Renal Panel - LAB USE ONLY 14:33:30 CDT 201 10/31/07 CPT-98399 CBC - LAB USE ONLY 14:33:29 CDT CPT-34648 Venipuncture Draw Fee 14:50:21 [employer]HOUSE [employer]PERATIONS MANAGER CPT-97149 Immunization Single Admin 17:35:35 CDT 2014 CPT-99931 Fluzone Quadrivalent preservative free ( >=3yrs.) 17:35:35 CDT CPT-47227 Venipuncture Draw Fee 12:10:27 [employer]HOUSE [employer]PERATIONS MANAGER CPT-05363 Fluzone Quadrivalent Intramuscular Suspe nsion 0.5 ML 10:49:13 CDT CPT-62897 First Vx Component - Ix admi n via ID IM or jet inj without physician counseling 15:17:19 [employer]HOUSE [employer]ATIONS MANAGER CPT-72819 Pneumovax 15:17:19 [employer]HOUSE [employer]PERATIONS MANAGER CPT-22114 Pneumovax 14:52:45 [employer]HOUSE [employer]PERATIONS MANAGER CPT-28910 Venipuncture Draw Fee 14:06:30 [employer]HOU[employer]PERATIONS MANAGER CPT-000 Give Appropriate Flu Vaccine 14:18:34 [employer]HOU[employer]PERATIONS MANAGER 2 CPT-91130 Administration single or combination vac cine inc oral 14:46:00 [employer]HOU[employer]PERATIONS MANAGER CPT-21853 Influenza split virus > age 3 14:46:00 [employer]HOUSE [employer]PERATIONS MANAGER CPT-OV Office Visit 19:13:16 CDT CPT-27519 Zostavax 18:41:56 CDT CPT-78477 Administration single or combination vac cine inc oral 12:56:39 CDT CPT-35950 Zoster Vaccine (Zostavax) 12:56:39 CDT 2012 CPT-63316 Venipuncture Draw Fee 10:58:57 CDT CPT-90743 Sono pelvis non OB uterus ovaries cervix 17:45:04 CDT CPT-42784 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
--- OUTSIDE RECORDS SUMMARY | 2019-10-27 12:08 | XMS REPORT | Clinical Summary ---
Author Author Admin, [employer] Address Unknown Phone Unavailable Allergies, Adverse Reactions, [...] Morbid obesity due to excess calories 278.01 [facility] t Baltazar Childers MD Morbid obesity Obesity Class II (BMI 35-39.9) 278.01 Refinement 10/26 Baltazar Childers MD Morbid obesity Morbid obesity due to excess calories 278.01 [facility] t Baltazar Childers MD Morbid obesity Obesity Class II (BMI 35-39.9) 278.01 Refinement 01/19 Baltazar Childers MD Morbid obesity Morbid obesity due to excess calories 278.01 [facility] t Baltazar Childers MD Morbid obesity [...] ronary atherosclerosis of unspecified type of vessel, [place] or graft OTH NONSPC ABN FINDNG RAD&OTH [...] 1 tab every 6-8 hours PRN HYDROCODONE-ACETAMINOPHEN 63790400394 Active Baltazar Nickerson MD Active NOVOLOG 100 UNIT/ML SUBCUTANEOUS SOLUTION 5 units with each meal. 2 INSULIN ASPART 91780897368 Active Fanny Hudson MA Active ONGLYZA 2.5 MG TABS TAKE 1 TABLET BY MOUTH EVERY DAY FOR DIABETES 2 SAXAGLIPTIN HCL 91091420419 Active Fanny Hudson MA Active GLIPIZIDE 10MG TABLETS TAKE 2 TABLETS BY MOUTH TWICE DAILY GLIPIZIDE 42973307237 Active Fanny Hudson MA Active TRUE METRIX B/G TEST STRIPS 25'S TEST BLOOD SUGAR TWICE DAILY 03/02 GLUCOSE BLOOD 43162210462 Active KENDALL Juarez Active LEVOTHYROXINE 0.112MG (112MCG) TABS TAKE 1 TABLET BY MOUTH EVERY DAY LEVOTHYROXINE SODIUM 62272972001 Active Fanny Hudson MA Active AMLODIPINE BESYLATE 5MG TABLETS TAKE 1 TABLET BY MOUTH EVERY DAY FOR HYPERTENSION AMLODIPINE BESYLATE 69997200029 Active Estefania Hudson MA Active LANTUS SOLOSTAR 100 UNIT/ML SUBCUTANEOUS SOLUTION PEN- INJECTOR 20 units am and 13 units at night INSULIN GLARGINE 26637962559 Active Fanny Hudson MA Active TRAMADOL HCL 50 MG ORAL TABLET 1 twice a day as needed for pain TRAMADOL HCL 78891211174 No Longer Active Baltazar Childers MD Active ROBAXIN 500 MG ORAL TABLET Take 1.5 (one and one half) tabs once daily METHOCARBAMOL 09258996915 Active Fanny Hudson MA Active TRUE METRIX AIR GLUCOSE METER DEVICE Use as directed BLOOD GLUCOSE MONITORING SUPPL 14929047117 Active Baltazar Childers MD Activ e NORTRIPTYLINE HCL 50 MG ORAL CAPSULE 1 twice a day for neuropathy 2 NORTRIPTYLINE HCL 14455312724 Active Fanny Hudson MA Active ASPIRIN 81 MG TBEC Take one (1) tablet by mouth daily ASPIRIN 93308655934 Active Baltazar Childers MD Active GABAPENTIN 300 MG ORAL CAPSULE 1 three times a day 201 12/03/26 GABAPENTIN 04003145264 No Longer Active Baltazar Childers MD Activ e LISINOPRIL 20 MG ORAL TABLET 1 tablet by mouth daily at night 2016 LISINOPRIL 04833655216 Active Fanny Hudson MA Active ZITHROMAX Z-ISAIAS 250 MG ORAL TABLET Take two tablets to day and then 1 tablet daily for 4 days AZITHROMYCIN 78343331366 No Longer A ctive Baltazar Childers MD Active SUCRALFATE 1 GM ORAL TABLET 1 four times a day to coat the stoma ch SUCRALFATE 38546160295 No Longer Active Baltazar Childers MD Active PEN NEEDLES 31G X 6 MM use 1 daily INSULIN PEN NE EDLE 52408417864 Active KENDALL Juarez Active TOUJEO SOLOSTAR 300 UNIT/ML SUBCUTANEOUS SOLUTION PEN- INJECTOR 10 units SC daily INSULIN GLARGINE 31827450135 No Longer Active Rola ARGUETA Active NAPROXEN SODIUM 220 MG ORAL TABLET 1 three times a day as needed NAPROXEN SODIUM 88839333467 No Longer Active Baltazar Childers MD Active ATORVASTATIN CALCIUM 20 MG ORAL TABLET Take 1 tab daily ATORVASTATIN CALCIUM 64864983173 Active Fanny Hudson MA Act amie FUROSEMIDE 40 MG ORAL TABLET Take one by mouth daily FUROSEMIDE 40080075179 Active Fanny Hudson MA Active LISINOPRIL 20 MG ORAL TABLET Take one by mouth daily at bedtime LISINOPRIL 98458402273 No Longer Active Baltazar Childers MD Active ONETOUCH ULTRA BLUE IN VITRO STRIP Test twice a day 07/11/11 GLUCOSE BLOOD 45768529600 No Longer Active Baltazar Childers MD Acti ve TRUEPLUS LANCETS 33G Test twice a day LANCETS 9291480 0357 Active KENDALL Juarez Active TRUEDRAW LANCING DEVICE Test twice a day LANCET DEVICES 33860661971 Active Baltazar Childers MD Active TRUETRACK BLOOD GLUCOSE w/Device KIT Test twice a day BLOOD GLUCOSE MONITORING SUPPL 66950554372 Active Baltazar Childers MD Activ e GABAPENTIN 300 MG ORAL CAPSULE 1 po qd x 2 days, then 1 po BID x 2 days, then 1 po TID GABAPENTIN 44733630406 No Longer Active Baltazar Childers MD Active NAPROXEN 500 MG ORAL TABLET 1 tablet by mouth twice daily NAPROXEN 52084843806 No Longer Active Baltazar Childers MD Active PROAIR HFA 108 (90 Base) MCG/ACT INHALATION AEROSOL SO LUTION 2 puffs four times a day as needed ALBUTEROL SULFATE 77273921794 Active L edson Hudson MA Active DEPO-TESTOSTERONE 200 MG/ML INTRAMUSCULAR SOLUTION as directed TESTOSTERONE CYPIONATE 03147771428 No Longer Active Baltazar Childers MD Active LIPITOR 20 MG ORAL TABLET Take one by mouth daily in evening ATORVASTATIN CALCIUM 46460879377 No Longer Active Baltazar Childers MD Active CRESTOR 10 MG ORAL TABLET 1 by mouth every day ROSUVASTATIN CALCIUM 17239401089 No Longer Active Baltazar Childers MD Active PHENTERMINE HCL 37.5 MG ORAL TABLET Take one by mouth daily PHENTERMINE HCL 09297720400 No Longer Active Baltaazr Childers MD Ac tive TIZANIDINE HCL 4 MG ORAL TABLET 1 daily as needed for muscle spa sm TIZANIDINE HCL 43955435646 No Longer Active Dawna Salazar RN Active LSEOEAFMNE-RAYY-SPYGLOBY 50-325-40 MG ORAL TABLET 1 fo ur times a day as needed for heacache [id number] 54131078295 Active KENDALL Juarez Active SUMATRIPTAN SUCCINATE 100 MG ORAL TABLET 1 tablet by m outh at onset of migraine as needed SUMATRIPTAN SUCCINATE 02932580481 Active Fanny Hudson MA Active LORATADINE 10 MG ORAL TABLET Take one by mouth daily LORATADINE 73400784400 Active Fanny Hudson MA Active OMEPRAZOLE 20 MG ORAL CAPSULE DELAYED RELEASE Take one by mouth jostin ly OMEPRAZOLE 72618690559 Active Fanny Hudson MA Active HYDROXYZINE HCL 25 MG ORAL TABLET Take one by mouth daily HYDROXYZINE HCL 64091129922 Active Fanny Hudson MA Active ALPRAZOLAM 1 MG ORAL TABLET 1 [facility] 00746519090 Active Fanny Hudson MA Active METFORMIN HCL 1000 MG ORAL TABLET Take one by mouth twice daily METFORMIN HCL 04220501334 Active Fanny Hudson MA Active TIZANIDINE HCL 4 MG ORAL TABLET 1 daily as needed for muscle spa sm TIZANIDINE HCL 4 MG ORAL TABLET 461491 TIZANIDINE HCL Inactive PHENTERMINE HCL 37.5 MG ORAL TABLET Take one by mouth daily PHENTERMINE HCL 37.5 MG ORAL TABLET 922008 PHENTERMINE HCL Inac tive CRESTOR 10 MG ORAL TABLET 1 by mouth every day CRESTOR 10 MG ORAL TABLET 499278 ROSUVASTATIN CALCIUM Inactive LIPITOR 20 MG ORAL TABLET Take one by mouth daily in evening LIPITOR 20 MG ORAL TABLET 648206 ATORVASTATIN CALCIUM Inactive DEPO-TESTOSTERONE 200 MG/ML INTRAMUSCULAR SOLUTION as directed DEPO-TESTOSTERONE 200 MG/ML INTRAMUSCULAR SOLUTION 2695988 RUFINO TOSTERONE CYPIONATE Inactive NAPROXEN 500 MG ORAL TABLET 1 tablet by mouth twice daily NAPROXEN 500 MG ORAL TABLET 985345 NAPROXEN Inactive GABAPENTIN 300 MG ORAL CAPSULE 1 po qd x 2 days, then 1 po BID x 2 days, then 1 po TID GABAPENTIN 300 MG ORAL CAPSULE 059672 GABAP ENTIN Inactive ONETOUCH ULTRA BLUE IN VITRO STRIP Test twice a day 07/11/11 ONETOUCH ULTRA BLUE IN VITRO STRIP GLUCOSE BLOOD Inact amie NAPROXEN SODIUM 220 MG ORAL TABLET 1 three times a day as needed NAPROXEN SODIUM 220 MG ORAL TABLET 62098119979 NAPROXEN SODI UM Inactive TOUJEO SOLOSTAR 300 UNIT/ML SUBCUTANEOUS SOLUTION PEN- INJECTOR 10 units SC daily CELINA SOLOSTAR 300 UNIT/ML SUBCUTANEOUS SOLUTION PEN-INJECTOR INSULIN GLARGINE Inactive SUCRALFATE 1 GM ORAL TABLET 1 four times a day to coat the stoma ch SUCRALFATE 1 GM ORAL TABLET 725557 SUCRALFATE Inac tive GABAPENTIN 300 MG ORAL CAPSULE 1 three times a day 201 12/03/26 GABAPENTIN 300 MG ORAL CAPSULE 451266 GABAPENTIN Inactive TRAMADOL HCL 50 MG ORAL TABLET 1 twice a day as needed for pain TRAMADOL HCL 50 MG ORAL TABLET 718045 TRAMADOL HCL I nactive ZITHROMAX Z-ISAIAS 250 MG ORAL TABLET Take two tablets to day and then 1 tablet daily for 4 days ZITHROMAX Z-ISAIAS 250 MG ORAL TAB LET 315943 AZITHROMYCIN Inactive Immunizations Vaccine Administration Date Value Standard Floyd cription influenza immunization (Flu Vax) has been administered 05/11 Done according to patient influenza virus vaccine, unspecified for mulation pneumococcal immunization administered Pneumovax 23 [CVX33] pneumococcal polysaccharide vaccine, 23 valent Seasonal influenza vaccine, injectable, containing preservative, for > 3 years old (Afluria, FluLaval, Fluzone, Fluvirin, Fluarix, Agriflu(>= 18 yo)) Fluzone (>3 yrs.) [XJM735] Influenza, seasonal, inject able Seasonal influenza vaccine, injectable, containing preservative, for > 3 years old (Afluria, FluLaval, Fluzone, Fluvirin, Fluarix, Agriflu(>= 18 yo)) Fluzone (>3 yrs.) [TYQ114] Influenza, seasonal, inject able Vital Signs Date [...] - Chem istry sodium, serum 136 mmol/L 391-620 2049/06/04 potassium, serum 4.9 mmol/L 3.5-5.2 chloride, serum 97 mmol/L 98-107 carbon dioxide, venous blood 35.3 mmol/L 21.0-32 .0 blood glucose 239 mg/dL 65-95 calcium, serum 10.6 mg/dL 8.5-10.1 urea nitrogen, blood 31 mg/dL 7-18 creatinine, serum 2.33 mg/dL 0.60-1.30 Estimated Glomerular Filtration Rate (calc) 23 (?) mL/min/1.73m2 = OR > 60 mL/min sodium, serum 141 mmol/L 258-807 8193/07/09 potassium, serum 4.9 mmol/L 3.5-5.2 chloride, serum 103 mmol/L 98-107 carbon dioxide, venous blood 35.1 mmol/L 21.0-32 .0 blood glucose 203 mg/dL 65-95 calcium, serum 9.8 mg/dL 8.5-10.1 urea nitrogen, blood 13 mg/dL 7-18 creatinine, serum 1.76 mg/dL 0.60-1.30 Estimated Glomerular Filtration Rate (calc) 31 (?) mL/min/1.73m2 = OR > 60 mL/min Lab Report: Basic Metabolic Panel, HGBA1 C - Chemistry calcium, serum 9.7 mg/dL 8.5-10.1 urea nitrogen, blood 31 mg/dL 7-18 creatinine, serum 2.22 mg/dL 0.60-1.30 Estimated Glomerular Filtration Rate (calc) 24 (?) mL/min/1.73m2 = OR > 60 mL/min hemoglobin A1C, blood, as % of total hemoglobin 8.6 % 4.3-6.0 blood glucose 262 mg/dL 65- carbon dioxide, venous blood 34.1 mmol/L 21.0-32 .0 chloride, serum 98 mmol/L 98-107 potassium, serum 4.9 mmol/L 3.5-5.2 sodium, serum 137 mmol/L 136-145 Lab Report: HGBA1C - Chemistry hemoglobin A1C, blood, as % of total hemoglobin 8.0 % 4.3-6.0 Lab Report: HGBA1C, CBC, Comp. Metabolic Panel, Cholesterol, Triglycerid ... - Chemistry calcium, serum 9.2 mg/dL 8.5-10.1 bilirubin, serum, total 0.40 mg/dL 0.00-1.00 cholesterol, serum 218 mg/dL 585-745 8390/12/18 triglyceride, serum, fasting 357 mg/dL 30-200 HDL cholesterol, serum 49 mg/dL 32-60 LDL cholesterol, serum 103.00 mg/dL 5.00-130.00 hemoglobin A1C, blood, as % of total hemoglobin 8.5 % 4.3-6.0 sodium, serum 142 mmol/L 133-191 4534/12/18 carbon dioxide, venous blood 32.5 mmol/L 21.0-32 [...] Ordered Encounters Code Encounter Date Provider Facility CPT-41739 [id number] Vst-Est Level IV 15:48:51 TECHNOLOGY PROFESSIONAL Charlie Childers MD [facility] CPT-56545 [id number] Vst-Est Level V 14:28:39 CDT Aneudy Childers MD [facility] CPT-39175 46019-Ywp Vst-Est Level IV 15:03:32 CDT Charlie Childers MD [facility] CPT-61645 80387-Tol Vst-Est Level III 15:51:57 CDT Baltazar Childers MD [facility] CPT-07469 35191-Oeb Vst-Est Level IV 15:14:58 CDT Charlie Childers MD [facility] CPT-70577 36406-Cwt Vst-Est Level IV 15:12:52 TECHNOLOGY PROFESSIONAL Charlie Childers MD [facility] CPT-93331 29223-Ngu Vst-Est Level IV 15:30:55 TECHNOLOGY PROFESSIONAL Charlie Childers MD [facility] CPT-86074 13782-Yoy Vst-Est Level IV 13:49:06 C DT nAn Martinez PA-C [facility] CPT-62368 Level 4 Est. Patient 17:26:[address] [facility]12996 76735-Ckh Vst-Est Level V 14:26:27 CDT Aneudy Childers MD [facility]-53231 Level 4 Est. Patient 17:05:37 CDT Baltazar Childers MD [facility]-35630 Level 4 Est. Patient 16:21:19 TECHNOLOGY PROFESSIONAL Baltazar Childers MD [facility]-79944 Level 4 Est. Patient 12:25:11 CDT Baltazar Childers MD [facility]-43124 Level 4 Est. Patient 14:22:31 CDT Baltazar Childers MD [facility]-36223 Level 4 Est. Patient 15:44:38 CDT [facility] [place] Level 4 Est. Patient 11:34:17 CDT Baltazar Childers MD [facility]-22557 Level 3 Est. Patient 16:40:40 CDT Baltazar Childers MD [facility]-62181 Level 4 Est. Patient 10:41:24 CDT Baltazar Childers MD [facility]-29374 Level 4 Est. Patient 16:01:48 CDT Baltazar Childers MD [facility]-99748 Level 4 Est. Patient 16:54:07 TECHNOLOGY PROFESSIONAL Baltazar Childers MD [facility]-80616 Level 4 Est. Patient 15:42:12 CDT Baltazar Childers MD [facility] CPT-53354 Level 4 Est. Patient 11:29:55 CDT Baltazar Childers MD [facility] CPT-25697 Level 4 Est. Patient 14:15:19 CDT Baltazar Childers MD [facility] CPT-64705 Level 4 Est. Patient 12:20:13 CDT Baltazar Childers MD [facility] CPT-23974 Level 4 Est. Patient 14:52:45 TECHNOLOGY PROFESSIONAL Baltazar Childers MD [facility] CPT-84007 Level 4 Est. Patient 14:18:34 TECHNOLOGY PROFESSIONAL Baltazar Childers MD [facility] CPT-16778 Level 4 Est. Patient 15:18:29 CDT Baltazar Childers MD [facility] CPT-11186 Level 3 Est. Patient 12:45:34 CDT Baltazar Childers MD [facility] CPT-22821 Level 3 Est. Patient 10:10:11 CDT Baltazar Childers MD [facility] CPT-25219 Level 3 Est. Patient 14:07:50 CDT Baltazar Childers MD [facility] CPT-07896 Level 4 Est. Patient 12:26:10 TECHNOLOGY PROFESSIONAL Baltazar Childers MD [facility] CPT-35971 Level 4 Est. Patient 14:45:38 CDT Baltazar Childers MD [facility] CPT-89003 Level 4 New Patient 12:30:48 CDT Baltazar hinton MD [facility] Procedures Code Procedure Name Date Entry Date Standard Desc ription CPT-43041 Venipuncture Draw Fee 17:47:23 CDT CPT-46474 4M Drug Screen cup test, Multi-panel, urine 2018 14:28:39 CDT CPT-46267 Venipuncture Draw Fee 15:19:00 CDT CPT-000 Give Appropriate Flu Vaccine 12:25:14 CDT 2 CPT-44117 First Vx - Ix admin via ID I M or jet injects without counseling by physician 13:08:59 CDT CPT-97325 Fluzone Quadrivalent Intramuscular Suspe nsion 0.5 ML 13:08:59 CDT CPT-96368 Venipuncture Draw Fee 12:04:12 CDT CPT-51310 Lipid - LAB USE ONLY 17:39:15 TECHNOLOGY PROFESSIONAL 9 CPT-78459 HGBA1C - LAB USE ONLY 17:39:15 TECHNOLOGY PROFESSIONAL CPT-78627 CMP - LAB USE ONLY 17:39:14 TECHNOLOGY PROFESSIONAL CPT-14983 Venipuncture Draw Fee 17:39:14 TECHNOLOGY PROFESSIONAL CPT-00504 First Vx - Ix admin via ID I M or jet injects without counseling by physician 16:55:17 TECHNOLOGY PROFESSIONAL CPT-68765 Fluzone Quadrivalent Intramuscular Suspe nsion 0.5 ML 16:55:17 TECHNOLOGY PROFESSIONAL CPT-16846 Renal Panel - LAB USE ONLY 17:39:20 CDT 201 10/31/07 CPT-10141 CBC - LAB USE ONLY 17:39:20 CDT CPT-79218 Venipuncture Draw Fee 17:39:20 CDT CPT-61984 Venipuncture Draw Fee 14:33:30 CDT CPT-96520 Renal Panel - LAB USE ONLY 14:33:30 CDT 201 10/31/07 CPT-15459 CBC - LAB USE ONLY 14:33:29 CDT CPT-41797 Venipuncture Draw Fee 14:50:21 TECHNOLOGY PROFESSIONAL CPT-03303 Immunization Single Admin 17:35:35 CDT 2014 CPT-37874 Fluzone Quadrivalent preservative free ( >=3yrs.) 17:35:35 CDT CPT-09091 Venipuncture Draw Fee 12:10:27 TECHNOLOGY PROFESSIONAL CPT-86516 Fluzone Quadrivalent Intramuscular Suspe nsion 0.5 ML 10:49:13 CDT CPT-30371 First Vx Component - Ix admi n via ID IM or jet inj without physician counseling 15:17:19 TECHNOLOGY PROFESSIONAL CPT-74564 Pneumovax 23 15:17:19 TECHNOLOGY PROFESSIONAL CPT-88291 Pneumovax 14:52:45 TECHNOLOGY PROFESSIONAL CPT-03276 Venipuncture Draw Fee 14:06:30 TECHNOLOGY PROFESSIONAL CPT-000 Give Appropriate Flu Vaccine 14:18:34 TECHNOLOGY PROFESSIONAL 2 CPT-54350 Administration single or combination vac cine inc oral 14:46:00 TECHNOLOGY PROFESSIONAL CPT-44268 Influenza split virus > age 3 14:46:00 TECHNOLOGY PROFESSIONAL CPT-OV Office Visit 19:13:16 CDT CPT-56300 Zostavax 18:41:56 CDT CPT-60490 Administration single or combination vac cine inc oral 12:56:39 CDT CPT-63148 Zoster Vaccine (Zostavax) 12:56:39 CDT 2012 CPT-43865 Venipuncture Draw Fee 10:58:57 CDT CPT-97087 Sono pelvis non OB uterus ovaries cervix 17:45:04 CDT CPT-46068 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
--- OUTSIDE RECORDS SUMMARY | 2019-10-27 12:08 | XMS REPORT | Clinical Summary ---
Author Author Admin, Elba Lance Aginova Address Unknown Phone Unavailable Allergies, Adverse Reactions, [...] Morbid obesity due to excess calories 278.01 [facility] t Baltazar Childers MD Morbid obesity Obesity Class II (BMI 35-39.9) 278.01 Refinement 10/26 Baltazar Childers MD Morbid obesity Morbid obesity due to excess calories 278.01 [facility] t Baltazar Childers MD Morbid obesity Obesity Class II (BMI 35-39.9) 278.01 Refinement 01/19 Baltazar Childers MD Morbid obesity Morbid obesity due to excess calories 278.01 [facility] t Baltazar Childers MD [...] ronary atherosclerosis of unspecified type of vessel, [place] or graft OTH NONSPC ABN FINDNG [...] 1 tab every 6-8 hours PRN HYDROCODONE-ACETAMINOPHEN 98987455891 Active Baltazar Nickerson MD Active NOVOLOG 100 UNIT/ML SUBCUTANEOUS SOLUTION 5 units with each meal. 2 INSULIN ASPART 62960558998 Active Fanny Hudson MA Active ONGLYZA 2.5 MG TABS TAKE 1 TABLET BY MOUTH EVERY DAY FOR DIABETES 2 SAXAGLIPTIN HCL 24867828839 Active Fanny Hudson MA Active GLIPIZIDE 10MG TABLETS TAKE 2 TABLETS BY MOUTH TWICE DAILY GLIPIZIDE 62395833581 Active Fanny Hudson MA Active TRUE METRIX B/G TEST STRIPS 25'S TEST BLOOD SUGAR TWICE DAILY 03/02 GLUCOSE BLOOD 44111766082 Active KENDALL Juarez Active LEVOTHYROXINE 0.112MG (112MCG) TABS TAKE 1 TABLET BY MOUTH EVERY DAY LEVOTHYROXINE SODIUM 62444817194 Active Fanny Hudson MA Active AMLODIPINE BESYLATE 5MG TABLETS TAKE 1 TABLET BY MOUTH EVERY DAY FOR HYPERTENSION AMLODIPINE BESYLATE 41373221812 Active Estefania Hudson MA Active LANTUS SOLOSTAR 100 UNIT/ML SUBCUTANEOUS SOLUTION PEN- INJECTOR 20 units am and 13 units at night INSULIN GLARGINE 49911177089 Active Fanny Hudson MA Active TRAMADOL HCL 50 MG ORAL TABLET 1 twice a day as needed for pain TRAMADOL HCL 91187157395 No Longer Active Baltazar Childers MD Active ROBAXIN 500 MG ORAL TABLET Take 1.5 (one and one half) tabs once daily METHOCARBAMOL 67434551688 Active Fanny Hudson MA Active TRUE METRIX AIR GLUCOSE METER DEVICE Use as directed BLOOD GLUCOSE MONITORING SUPPL 54877372387 Active Baltazar Childers MD Activ e NORTRIPTYLINE HCL 50 MG ORAL CAPSULE 1 twice a day for neuropathy 2 NORTRIPTYLINE HCL 90904929582 Active Fanny Hudson MA Active ASPIRIN 81 MG TBEC Take one (1) tablet by mouth daily ASPIRIN 42748830769 Active Baltazar Childers MD Active GABAPENTIN 300 MG ORAL CAPSULE 1 three times a day 201 12/03/26 GABAPENTIN 74755612634 No Longer Active Baltazar Childers MD Activ e LISINOPRIL 20 MG ORAL TABLET 1 tablet by mouth daily at night 2016 LISINOPRIL 60207917107 Active Fanny Hudson MA Active ZITHROMAX Z-ISAIAS 250 MG ORAL TABLET Take two tablets to day and then 1 tablet daily for 4 days AZITHROMYCIN 87747608300 No Longer A ctive Baltazar Childers MD Active SUCRALFATE 1 GM ORAL TABLET 1 four times a day to coat the stoma ch SUCRALFATE 38170872319 No Longer Active Baltazar Childers MD Active PEN NEEDLES 31G X 6 MM use 1 daily INSULIN PEN NE EDLE 03065070394 Active KENDALL Juarez Active TOUJEO SOLOSTAR 300 UNIT/ML SUBCUTANEOUS SOLUTION PEN- INJECTOR 10 units SC daily INSULIN GLARGINE 75103119478 No Longer Active Rola ARGUETA Active NAPROXEN SODIUM 220 MG ORAL TABLET 1 three times a day as needed NAPROXEN SODIUM 71630280384 No Longer Active Baltazar Childers MD Active ATORVASTATIN CALCIUM 20 MG ORAL TABLET Take 1 tab daily ATORVASTATIN CALCIUM 19740962383 Active Fanny Hudson MA Act amie FUROSEMIDE 40 MG ORAL TABLET Take one by mouth daily FUROSEMIDE 86026274242 Active Fanny Hudson MA Active LISINOPRIL 20 MG ORAL TABLET Take one by mouth daily at bedtime LISINOPRIL 24577534866 No Longer Active Baltazar Childers MD Active ONETOUCH ULTRA BLUE IN VITRO STRIP Test twice a day 07/11/11 GLUCOSE BLOOD 14908538000 No Longer Active Baltazar Childers MD Acti ve TRUEPLUS LANCETS 33G Test twice a day LANCETS 1131589 4526 Active KENDALL Juarez Active TRUEDRAW LANCING DEVICE Test twice a day LANCET DEVICES 44496216289 Active Baltazar Childers MD Active TRUETRACK BLOOD GLUCOSE w/Device KIT Test twice a day BLOOD GLUCOSE MONITORING SUPPL 87536853818 Active Baltazar Childers MD Activ e GABAPENTIN 300 MG ORAL CAPSULE 1 po qd x 2 days, then 1 po BID x 2 days, then 1 po TID GABAPENTIN 28895515933 No Longer Active Baltazar Childers MD Active NAPROXEN 500 MG ORAL TABLET 1 tablet by mouth twice daily NAPROXEN 31292122115 No Longer Active Baltazar Childers MD Active PROAIR HFA 108 (90 Base) MCG/ACT INHALATION AEROSOL SO LUTION 2 puffs four times a day as needed ALBUTEROL SULFATE 28563175633 Active L edson Hudson MA Active DEPO-TESTOSTERONE 200 MG/ML INTRAMUSCULAR SOLUTION as directed TESTOSTERONE CYPIONATE 26686597879 No Longer Active Baltazar Childers MD Active LIPITOR 20 MG ORAL TABLET Take one by mouth daily in evening ATORVASTATIN CALCIUM 88167711369 No Longer Active Baltazar Childers MD Active CRESTOR 10 MG ORAL TABLET 1 by mouth every day ROSUVASTATIN CALCIUM 77410612298 No Longer Active Baltazar Childers MD Active PHENTERMINE HCL 37.5 MG ORAL TABLET Take one by mouth daily PHENTERMINE HCL 22337211491 No Longer Active Baltazar Childers MD Ac tive TIZANIDINE HCL 4 MG ORAL TABLET 1 daily as needed for muscle spa sm TIZANIDINE HCL 41729902081 No Longer Active Dawna Salazar RN Active [id number] 50-325-40 MG ORAL TABLET 1 fo ur times a day as needed for heacache [id number] 80109533812 Active KENDALL Juarez Active SUMATRIPTAN SUCCINATE 100 MG ORAL TABLET 1 tablet by m outh at onset of migraine as needed SUMATRIPTAN SUCCINATE 73019696065 Active Fanny Hudson MA Active LORATADINE 10 MG ORAL TABLET Take one by mouth daily LORATADINE 13383433141 Active Fanny Hudson MA Active OMEPRAZOLE 20 MG ORAL CAPSULE DELAYED RELEASE Take one by mouth jostin ly OMEPRAZOLE 98456418799 Active Fanny Hudson MA Active HYDROXYZINE HCL 25 MG ORAL TABLET Take one by mouth daily HYDROXYZINE HCL 93923320894 Active Fanny Hudson MA Active ALPRAZOLAM 1 MG ORAL TABLET 1 tablet [facility] AL[facility] 34997145922 Active Fanny Hudson MA Active METFORMIN HCL 1000 MG ORAL TABLET Take one by mouth twice daily METFORMIN HCL 12583032789 Active Fanny Hudson MA Active TIZANIDINE HCL 4 MG ORAL TABLET 1 daily as needed for muscle spa sm TIZANIDINE HCL 4 MG ORAL TABLET 506448 TIZANIDINE HCL Inactive PHENTERMINE HCL 37.5 MG ORAL TABLET Take one by mouth daily PHENTERMINE HCL 37.5 MG ORAL TABLET 717153 PHENTERMINE HCL Inac tive CRESTOR 10 MG ORAL TABLET 1 by mouth every day CRESTOR 10 MG ORAL TABLET 170410 ROSUVASTATIN CALCIUM Inactive LIPITOR 20 MG ORAL TABLET Take one by mouth daily in evening LIPITOR 20 MG ORAL TABLET 575448 ATORVASTATIN CALCIUM Inactive DEPO-TESTOSTERONE 200 MG/ML INTRAMUSCULAR SOLUTION as directed DEPO-TESTOSTERONE 200 MG/ML INTRAMUSCULAR SOLUTION 5612319 RUFINO TOSTERONE CYPIONATE Inactive NAPROXEN 500 MG ORAL TABLET 1 tablet by mouth twice daily NAPROXEN 500 MG ORAL TABLET 434847 NAPROXEN Inactive GABAPENTIN 300 MG ORAL CAPSULE 1 po qd x 2 days, then 1 po BID x 2 days, then 1 po TID GABAPENTIN 300 MG ORAL CAPSULE 154441 GABAP ENTIN Inactive ONETOUCH ULTRA BLUE IN VITRO STRIP Test twice a day 07/11/11 ONETOUCH ULTRA BLUE IN VITRO STRIP GLUCOSE BLOOD Inact amie NAPROXEN SODIUM 220 MG ORAL TABLET 1 three times a day as needed NAPROXEN SODIUM 220 MG ORAL TABLET 27374858981 NAPROXEN SODI UM Inactive TOUJEO SOLOSTAR 300 UNIT/ML SUBCUTANEOUS SOLUTION PEN- INJECTOR 10 units SC daily CELINA SOLOSTAR 300 UNIT/ML SUBCUTANEOUS SOLUTION PEN-INJECTOR INSULIN GLARGINE Inactive SUCRALFATE 1 GM ORAL TABLET 1 four times a day to coat the stoma ch SUCRALFATE 1 GM ORAL TABLET 582353 SUCRALFATE Inac tive GABAPENTIN 300 MG ORAL CAPSULE 1 three times a day 201 12/03/26 GABAPENTIN 300 MG ORAL CAPSULE 929574 GABAPENTIN Inactive TRAMADOL HCL 50 MG ORAL TABLET 1 twice a day as needed for pain TRAMADOL HCL 50 MG ORAL TABLET 592542 TRAMADOL HCL I nactive ZITHROMAX Z-ISAIAS 250 MG ORAL TABLET Take two tablets to day and then 1 tablet daily for 4 days ZITHROMAX Z-ISAIAS 250 MG ORAL TAB LET 477225 AZITHROMYCIN Inactive Immunizations Vaccine Administration Date Value Standard Floyd cription influenza immunization (Flu Vax) has been administered 05/11 Done according to patient influenza virus vaccine, unspecified for mulation pneumococcal immunization administered Pneumovax 23 [CVX33] pneumococcal polysaccharide vaccine, 23 valent Seasonal influenza vaccine, injectable, containing preservative, for > 3 years old (Afluria, FluLaval, Fluzone, Fluvirin, Fluarix, Agriflu(>= 18 yo)) Fluzone (>3 yrs.) [GMF252] Influenza, seasonal, inject able Seasonal influenza vaccine, injectable, containing preservative, for > 3 years old (Afluria, FluLaval, Fluzone, Fluvirin, Fluarix, Agriflu(>= 18 yo)) Fluzone (>3 yrs.) [GIE493] Influenza, seasonal, inject able Vital Signs Date [...] pressure, diastolic, repeated by physician 75 BP samleron blood pressure, diastolic 75 mm[Hg] BP salmeron [...] - Chem istry sodium, serum 136 mmol/L 908-593 2960/06/04 potassium, serum 4.9 mmol/L 3.5-5.2 chloride, serum 97 mmol/L 98-107 carbon dioxide, venous blood 35.3 mmol/L 21.0-32 .0 blood glucose 239 mg/dL 65-95 calcium, serum 10.6 mg/dL 8.5-10.1 urea nitrogen, blood 31 mg/dL 7-18 creatinine, serum 2.33 mg/dL 0.60-1.30 Estimated Glomerular Filtration Rate (calc) 23 (?) mL/min/1.73m2 = OR > 60 mL/min sodium, serum 141 mmol/L 602-594 2258/07/09 potassium, serum 4.9 mmol/L 3.5-5.2 chloride, serum [...] mg/dL 0.00-1.00 cholesterol, serum 218 mg/dL 525-436 0070/12/18 triglyceride, serum, fasting 357 mg/dL 30-200 HDL cholesterol, serum 49 mg/dL 32-60 LDL cholesterol, serum 103.00 mg/dL 5.00-130.00 hemoglobin A1C, blood, as % of total hemoglobin 8.5 % 4.3-6.0 sodium, serum 142 mmol/L 765-141 7593/12/18 carbon dioxide, venous blood 32.5 mmol/L 21.0-32 [...] Ordered Encounters Code Encounter Date Provider Facility CPT-78965 [id number] Vst-Est Level IV 15:48:51 BILLING MANAGER Charlie Childers MD [facility] CPT-28869 [id number] Vst-Est Level V 14:28:39 CDT Aneudy Childers MD [facility] CPT-93592 [id number] Vst-Est Level IV 15:03:32 CDT Charlie Childers MD [facility] CPT-42542 18274-Poz Vst-Est Level III 15:51:57 CDT Baltazar Childers MD [facility] CPT-06630 58437-Hti Vst-Est Level IV 15:14:58 CDT Charlie Childers MD [facility] CPT-38146 33686-Una Vst-Est Level IV 15:12:52 BILLING MANAGER Charlie Childers MD [facility] CPT-41845 63850-Jmq Vst-Est Level IV 15:30:55 BILLING MANAGER Charlie Childers MD [facility] CPT-47318 18901-Bze Vst-Est Level IV 13:49:06 C DT Ann Martinez PA-C [facility] CPT-03255 Level 4 Est. Patient 17:26:08 [facility] 79338-Lpx Vst-Est Level V 14:26:27 CDT Aneudy Childers MD [facility]-95723 Level 4 Est. Patient 17:05:37 CDT Baltazar Childers MD [facility]-95917 Level 4 Est. Patient 16:21:19 BILLING MANAGER Baltazar Childers MD [facility]-00894 Level 4 Est. Patient 12:25:11 CDT Baltazar Childers MD [facility]-51986 Level 4 Est. Patient 14:22:31 CDT Baltazar Childers MD [facility]-29639 Level 4 Est. Patient 15:44:38 CD[facility] Est[facility] Patient 11:34:17 CDT Baltazar Childers MD [facility]-11482 Level 3 Est. Patient 16:40:40 CDT Baltazar Childers MD [facility]-81852 Level 4 Est. Patient 10:41:24 CDT Baltazar Childers MD [facility]-86692 Level 4 Est. Patient 16:01:48 CDT Baltazar Childers MD [facility]-95221 Level 4 Est. Patient 16:54:07 BILLING MANAGER Baltazar Childers MD [facility]-60487 Level 4 Est. Patient 15:42:12 CDT Baltazar Childers MD [facility] CPT-07370 Level 4 Est. Patient 11:29:55 CDT Baltazar Childers MD [facility] CPT-97387 Level 4 Est. Patient 14:15:19 CDT Baltazar Childers MD [facility] CPT-57323 Level 4 Est. Patient 12:20:13 CDT Baltazar Childers MD [facility] CPT-18885 Level 4 Est. Patient 14:52:45 BILLING MANAGER Baltazar Childers MD [facility] CPT-89715 Level 4 Est. Patient 14:18:34 BILLING MANAGER Baltazar Childers MD [facility] CPT-43089 Level 4 Est. Patient 15:18:29 CDT Baltazar Childers MD [facility] CPT-89119 Level 3 Est. Patient 12:45:34 CDT Baltazar Childers MD [facility] CPT-84476 Level 3 Est. Patient 10:10:11 CDT Baltazar Childers MD [facility] CPT-47535 Level 3 Est. Patient 14:07:50 CDT Baltazar Childers MD [facility] CPT-90955 Level 4 Est. Patient 12:26:10 BILLING MANAGER Baltazar Childers MD [facility] CPT-81746 Level 4 Est. Patient 14:45:38 CDT Baltazar Childers MD [facility] CPT-04595 Level 4 New Patient 12:30:48 CDT Baltazar hinton MD [facility] Procedures Code Procedure Name Date Entry Date Standard Desc ription CPT-09263 Venipuncture Draw Fee 17:47:23 CDT CPT-98491 4M Drug Screen cup test, Multi-panel, urine 2018 14:28:39 CDT CPT-07457 Venipuncture Draw Fee 15:19:00 CDT CPT-000 Give Appropriate Flu Vaccine 12:25:14 CDT 2 CPT-81988 First Vx - Ix admin via ID I M or jet injects without counseling by physician 13:08:59 CDT CPT-01520 Fluzone Quadrivalent Intramuscular Suspe nsion 0.5 ML 13:08:59 CDT CPT-34869 Venipuncture Draw Fee 12:04:12 CDT CPT-06899 Lipid - LAB USE ONLY 17:39:15 BILLING MANAGER 9 CPT-50036 HGBA1C - LAB USE ONLY 17:39:15 BILLING MANAGER CPT-28710 CMP - LAB USE ONLY 17:39:14 BILLING MANAGER CPT-59930 Venipuncture Draw Fee 17:39:14 BILLING MANAGER CPT-35645 First Vx - Ix admin via ID I M or jet injects without counseling by physician 16:55:17 BILLING MANAGER CPT-51160 Fluzone Quadrivalent Intramuscular Suspe nsion 0.5 ML 16:55:17 BILLING MANAGER CPT-12912 Renal Panel - LAB USE ONLY 17:39:20 CDT 201 10/31/07 CPT-72674 CBC - LAB USE ONLY 17:39:20 CDT CPT-61097 Venipuncture Draw Fee 17:39:20 CDT CPT-84068 Venipuncture Draw Fee 14:33:30 CDT CPT-56298 Renal Panel - LAB USE ONLY 14:33:30 CDT 201 10/31/07 CPT-03722 CBC - LAB USE ONLY 14:33:29 CDT CPT-35567 Venipuncture Draw Fee 14:50:21 BILLING MANAGER CPT-54110 Immunization Single Admin 17:35:35 CDT 2014 CPT-14210 Fluzone Quadrivalent preservative free ( >=3yrs.) 17:35:35 CDT CPT-37681 Venipuncture Draw Fee 12:10:27 BILLING MANAGER CPT-20169 Fluzone Quadrivalent Intramuscular Suspe nsion 0.5 ML 10:49:13 CDT CPT-62669 First Vx Component - Ix admi n via ID IM or jet inj without physician counseling 15:17:19 BILLING MANAGER CPT-15815 Pneumovax 23 15:17:19 BILLING MANAGER CPT-00471 Pneumovax 14:52:45 BILLING MANAGER CPT-15437 Venipuncture Draw Fee 14:06:30 BILLING MANAGER CPT-000 Give Appropriate Flu Vaccine 14:18:34 BILLING MANAGER 2 CPT-32167 Administration single or combination vac cine inc oral 14:46:00 BILLING MANAGER CPT-27843 Influenza split virus > age 3 14:46:00 BILLING MANAGER CPT-OV Office Visit 19:13:16 CDT CPT-04268 Zostavax 18:41:56 CDT CPT-87339 Administration single or combination vac cine inc oral 12:56:39 CDT CPT-33865 Zoster Vaccine (Zostavax) 12:56:39 CDT 2012 CPT-64785 Venipuncture Draw Fee 10:58:57 CDT CPT-76208 Sono pelvis non OB uterus ovaries cervix 17:45:04 CDT CPT-45809 Sono retroperitoneal complete kidneys an d bladder 17:14:36 CDT CPT-OV Office Visit 14:59:38 BILLING MANAGER CPT-J1070 Depo Testosterone 100 mg 14:50:13 CDT 03/05 CPT-79770 Abx/Therapy Injection 14:50:13 CDT CPT-38858 Administration single or combination vac cine inc oral 14:34:43 CDT CPT-37233 Influenza split virus > age 3 14:34:43 CDT CPT-J1070 Depo Testosterone 100 mg 17:37:13 CDT 01/11 CPT-79498 Abx/Therapy Injection 17:37:13 CDT CPT-48578 Venipuncture Draw Fee 16:30:13 CDT CPT-77988 Venipuncture Draw Fee 16:29:43 CDT CPT-J1070 Depo Testosterone 100 mg 14:45:38 CDT 01/11
--- OUTSIDE RECORDS SUMMARY | 2019-10-27 12:09 | XMS REPORT | Clinical Summary ---
Author Author Admin, Elba [employer] Address Unknown Phone Unavailable Allergies, Adverse Reactions, [...] Morbid obesity due to excess calories 278.01 [facility] t Baltazar Childers MD Morbid obesity Obesity Class II (BMI 35-39.9) 278.01 Refinement 10/26 Baltazar Childers MD Morbid obesity Morbid obesity due to excess calories 278.01 [facility] t Baltazar Childers MD Morbid obesity Obesity Class II (BMI 35-39.9) 278.01 Refinement 01/19 Baltazar Childers MD Morbid obesity Morbid obesity due to excess calories 278.01 [facility] t Baltazar Childers MD Morbid obesity [...] ronary atherosclerosis of unspecified type of vessel, [place] or graft OTH NONSPC ABN FINDNG RAD&OTH [...] 1 tab every 6-8 hours PRN HYDROCODONE-ACETAMINOPHEN 01319244133 Active Baltazar Nickerson MD Active NOVOLOG 100 UNIT/ML SUBCUTANEOUS SOLUTION 5 units with each meal. 2 INSULIN ASPART 97458509501 Active Fanny Hudson MA Active ONGLYZA 2.5 MG TABS TAKE 1 TABLET BY MOUTH EVERY DAY FOR DIABETES 2 SAXAGLIPTIN HCL 08805923401 Active Fanny Hudson MA Active GLIPIZIDE 10MG TABLETS TAKE 2 TABLETS BY MOUTH TWICE DAILY GLIPIZIDE 39174160289 Active Fanny Hudson MA Active TRUE METRIX B/G TEST STRIPS 25'S TEST BLOOD SUGAR TWICE DAILY 03/02 GLUCOSE BLOOD 43619972309 Active KENDALL Juarez Active LEVOTHYROXINE 0.112MG (112MCG) TABS TAKE 1 TABLET BY MOUTH EVERY DAY LEVOTHYROXINE SODIUM 77894111086 Active Fanny Hudson MA Active AMLODIPINE BESYLATE 5MG TABLETS TAKE 1 TABLET BY MOUTH EVERY DAY FOR HYPERTENSION AMLODIPINE BESYLATE 65564160794 Active Estefania Hudson MA Active LANTUS SOLOSTAR 100 UNIT/ML SUBCUTANEOUS SOLUTION PEN- INJECTOR 20 units am and 13 units at night INSULIN GLARGINE 69620317160 Active Fanny Hudson MA Active TRAMADOL HCL 50 MG ORAL TABLET 1 twice a day as needed for pain TRAMADOL HCL 89510249400 No Longer Active Baltazar Childers MD Active ROBAXIN 500 MG ORAL TABLET Take 1.5 (one and one half) tabs once daily METHOCARBAMOL 88013320583 Active Fanny Hudson MA Active TRUE METRIX AIR GLUCOSE METER DEVICE Use as directed BLOOD GLUCOSE MONITORING SUPPL 01733220551 Active Baltazar Childers MD Activ e NORTRIPTYLINE HCL 50 MG ORAL CAPSULE 1 twice a day for neuropathy 2 NORTRIPTYLINE HCL 64103553266 Active Fanny Hudson MA Active ASPIRIN 81 MG TBEC Take one (1) tablet by mouth daily ASPIRIN 15480807084 Active Baltazar Childers MD Active GABAPENTIN 300 MG ORAL CAPSULE 1 three times a day 201 12/03/26 GABAPENTIN 25914686078 No Longer Active Baltazar Chliders MD Activ e LISINOPRIL 20 MG ORAL TABLET 1 tablet by mouth daily at night 2016 LISINOPRIL 66368999620 Active Fanny Hudson MA Active ZITHROMAX Z-ISAIAS 250 MG ORAL TABLET Take two tablets to day and then 1 tablet daily for 4 days AZITHROMYCIN 47706511463 No Longer A ctive Baltazar Childers MD Active SUCRALFATE 1 GM ORAL TABLET 1 four times a day to coat the stoma ch SUCRALFATE 09631386073 No Longer Active Baltazar Childers MD Active PEN NEEDLES 31G X 6 MM use 1 daily INSULIN PEN NE EDLE 60308982537 Active KENDALL Juarez Active TOUJEO SOLOSTAR 300 UNIT/ML SUBCUTANEOUS SOLUTION PEN- INJECTOR 10 units SC daily INSULIN GLARGINE 73883270738 No Longer Active Rola ARGUETA Active NAPROXEN SODIUM 220 MG ORAL TABLET 1 three times a day as needed NAPROXEN SODIUM 04097900913 No Longer Active Baltazar Childers MD Active ATORVASTATIN CALCIUM 20 MG ORAL TABLET Take 1 tab daily ATORVASTATIN CALCIUM 84597851517 Active Fanny Hudson MA Act amie FUROSEMIDE 40 MG ORAL TABLET Take one by mouth daily FUROSEMIDE 63458071390 Active Fanny Hudson MA Active LISINOPRIL 20 MG ORAL TABLET Take one by mouth daily at bedtime LISINOPRIL 55632046005 No Longer Active Baltazar Childers MD Active ONETOUCH ULTRA BLUE IN VITRO STRIP Test twice a day 07/11/11 GLUCOSE BLOOD 08756412170 No Longer Active Baltazar Childers MD Acti ve TRUEPLUS LANCETS 33G Test twice a day LANCETS 8819946 7087 Active KENDALL Juarez Active TRUEDRAW LANCING DEVICE Test twice a day LANCET DEVICES 51590807531 Active Baltazar Childers MD Active TRUETRACK BLOOD GLUCOSE w/Device KIT Test twice a day BLOOD GLUCOSE MONITORING SUPPL 62425519428 Active Baltazar Childers MD Activ e GABAPENTIN 300 MG ORAL CAPSULE 1 po qd x 2 days, then 1 po BID x 2 days, then 1 po TID GABAPENTIN 11973418034 No Longer Active Baltazar Childers MD Active NAPROXEN 500 MG ORAL TABLET 1 tablet by mouth twice daily NAPROXEN 19471602729 No Longer Active Baltazar Childers MD Active PROAIR HFA 108 (90 Base) MCG/ACT INHALATION AEROSOL SO LUTION 2 puffs four times a day as needed ALBUTEROL SULFATE 18225121839 Active L edson Hudson MA Active DEPO-TESTOSTERONE 200 MG/ML INTRAMUSCULAR SOLUTION as directed TESTOSTERONE CYPIONATE 81281539096 No Longer Active Baltazar Childers MD Active LIPITOR 20 MG ORAL TABLET Take one by mouth daily in evening ATORVASTATIN CALCIUM 02518623625 No Longer Active Baltazar Childers MD Active CRESTOR 10 MG ORAL TABLET 1 by mouth every day ROSUVASTATIN CALCIUM 86370192604 No Longer Active Baltazar Childers MD Active PHENTERMINE HCL 37.5 MG ORAL TABLET Take one by mouth daily PHENTERMINE HCL 70206974820 No Longer Active Baltazar Childers MD Ac tive TIZANIDINE HCL 4 MG ORAL TABLET 1 daily as needed for muscle spa sm TIZANIDINE HCL 60441042493 No Longer Active Dawna Salazar RN Active [id number] 50-325-40 MG ORAL TABLET 1 fo ur times a day as needed for heacache [id number] 03319048507 Active KENDALL Juarez Active SUMATRIPTAN SUCCINATE 100 MG ORAL TABLET 1 tablet by m outh at onset of migraine as needed SUMATRIPTAN SUCCINATE 07714151019 Active Fanny Hudson MA Active LORATADINE 10 MG ORAL TABLET Take one by mouth daily LORATADINE 24201564953 Active Fanny Hudson MA Active OMEPRAZOLE 20 MG ORAL CAPSULE DELAYED RELEASE Take one by mouth jostin ly OMEPRAZOLE 23056545833 Active Fanny Hudson MA Active HYDROXYZINE HCL 25 MG ORAL TABLET Take one by mouth daily HYDROXYZINE HCL 55025460953 Active Fanny Hudson MA Active ALPRAZOLAM 1 MG ORAL TABLET 1 tablet by mouth [facility] ALPRAZOLAM 05488698925 Active Fanny Hudson MA Active METFORMIN HCL 1000 MG ORAL TABLET Take one by mouth twice daily METFORMIN HCL 81650610327 Active Fanny Hudson MA Active TIZANIDINE HCL 4 MG ORAL TABLET 1 daily as needed for muscle spa sm TIZANIDINE HCL 4 MG ORAL TABLET 309204 TIZANIDINE HCL Inactive PHENTERMINE HCL 37.5 MG ORAL TABLET Take one by mouth daily PHENTERMINE HCL 37.5 MG ORAL TABLET 358435 PHENTERMINE HCL Inac tive CRESTOR 10 MG ORAL TABLET 1 by mouth every day CRESTOR 10 MG ORAL TABLET 049079 ROSUVASTATIN CALCIUM Inactive LIPITOR 20 MG ORAL TABLET Take one by mouth daily in evening LIPITOR 20 MG ORAL TABLET 285397 ATORVASTATIN CALCIUM Inactive DEPO-TESTOSTERONE 200 MG/ML INTRAMUSCULAR SOLUTION as directed DEPO-TESTOSTERONE 200 MG/ML INTRAMUSCULAR SOLUTION 5618675 RUFINO TOSTERONE CYPIONATE Inactive NAPROXEN 500 MG ORAL TABLET 1 tablet by mouth twice daily NAPROXEN 500 MG ORAL TABLET 844478 NAPROXEN Inactive GABAPENTIN 300 MG ORAL CAPSULE 1 po qd x 2 days, then 1 po BID x 2 days, then 1 po TID GABAPENTIN 300 MG ORAL CAPSULE 743969 GABAP ENTIN Inactive ONETOUCH ULTRA BLUE IN VITRO STRIP Test twice a day 07/11/11 ONETOUCH ULTRA BLUE IN VITRO STRIP GLUCOSE BLOOD Inact amie NAPROXEN SODIUM 220 MG ORAL TABLET 1 three times a day as needed NAPROXEN SODIUM 220 MG ORAL TABLET 99447253101 NAPROXEN SODI UM Inactive TOUJEO SOLOSTAR 300 UNIT/ML SUBCUTANEOUS SOLUTION PEN- INJECTOR 10 units SC daily CELINA SOLOSTAR 300 UNIT/ML SUBCUTANEOUS SOLUTION PEN-INJECTOR INSULIN GLARGINE Inactive SUCRALFATE 1 GM ORAL TABLET 1 four times a day to coat the stoma ch SUCRALFATE 1 GM ORAL TABLET 024678 SUCRALFATE Inac tive GABAPENTIN 300 MG ORAL CAPSULE 1 three times a day 201 12/03/26 GABAPENTIN 300 MG ORAL CAPSULE 062295 GABAPENTIN Inactive TRAMADOL HCL 50 MG ORAL TABLET 1 twice a day as needed for pain TRAMADOL HCL 50 MG ORAL TABLET 648093 TRAMADOL HCL I nactive ZITHROMAX Z-ISAIAS 250 MG ORAL TABLET Take two tablets to day and then 1 tablet daily for 4 days ZITHROMAX Z-ISAIAS 250 MG ORAL TAB LET 788458 AZITHROMYCIN Inactive Immunizations Vaccine Administration Date Value Standard Floyd cription influenza immunization (Flu Vax) has been administered 05/11 Done according to patient influenza virus vaccine, unspecified for mulation pneumococcal immunization administered Pneumovax 23 [CVX33] pneumococcal polysaccharide vaccine, 23 valent Seasonal influenza vaccine, injectable, containing preservative, for > 3 years old (Afluria, FluLaval, Fluzone, Fluvirin, Fluarix, Agriflu(>= 18 yo)) Fluzone (>3 yrs.) [[id number]] Influenza, seasonal, inject able Seasonal influenza vaccine, injectable, containing preservative, for > 3 years old (Afluria, FluLaval, Fluzone, Fluvirin, Fluarix, Agriflu(>= 18 yo)) Fluzone (>3 yrs.) [UYS860] Influenza, seasonal, inject able Vital Signs Date [...] - Chem istry sodium, serum 136 mmol/L 190-193 3994/06/04 potassium, serum 4.9 mmol/L 3.5-5.2 chloride, serum 97 mmol/L 98-107 carbon dioxide, venous blood 35.3 mmol/L 21.0-32 .0 blood glucose 239 mg/dL 65-95 calcium, serum 10.6 mg/dL 8.5-10.1 urea nitrogen, blood 31 mg/dL 7-18 creatinine, serum 2.33 mg/dL 0.60-1.30 Estimated Glomerular Filtration Rate (calc) 23 (?) mL/min/1.73m2 = OR > 60 mL/min sodium, serum 141 mmol/L 919-324 4772/07/09 potassium, serum 4.9 mmol/L 3.5-5.2 chloride, serum [...] C - Chemistry sodium, serum 137 mmol/L 867-392 0705/10/17 potassium, serum 4.9 mmol/L 3.5-5.2 chloride, serum [...] 0.40 mg/dL 0.00-1.00 cholesterol, serum 218 mg/dL 759-896 0502/12/18 triglyceride, serum, fasting 357 mg/dL 30-200 HDL cholesterol, serum 49 mg/dL 32-60 LDL cholesterol, serum 103.00 mg/dL 5.00-130.00 hemoglobin A1C, blood, as % of total hemoglobin 8.5 % 4.3-6.0 sodium, serum 142 mmol/L 134-185 6634/12/18 carbon dioxide, venous blood 32.5 mmol/L 21.0-32 [...] Ordered Encounters Code Encounter Date Provider Facility CPT-27458 [id number] Vst-Est Level IV 15:48:51 CUSTOMER ACCOUNT TECHNICIAN Charlie Childers MD [facility] CPT-91782 [id number] Vst-Est Level V 14:28:39 CDT Aneudy Childers MD [facility] CPT-20552 [id number] Vst-Est Level IV 15:03:32 CDT Charlie Childers MD [facility] CPT-03266 21927-Moi Vst-Est Level III 15:51:57 CDT Baltazar Childers MD [facility] CPT-96617 39524-Czm Vst-Est Level IV 15:14:58 CDT Charlie Childers MD [facility] CPT-50269 [id number] Vst-Est Level IV 15:12:52 CUSTOMER ACCOUNT TECHNICIAN Charlie Childers MD [facility] CPT-44257 10543-Jxz Vst-Est Level IV 15:30:55 CUSTOMER ACCOUNT TECHNICIAN Charlie Childers MD [facility] CPT-67660 [id number] Vst-Est Level IV 13:49:06 C DT Ann Martinez PA-C [facility] CPT-64853 Level 4 Est. Patient 17:26:08 CD[facility] 59759-Xnj Vst-Est Level V 14:26:27 CDT Aneudy Childers MD [facility]-43912 Level 4 Est. Patient 17:05:37 CDT Baltazar Childers MD [facility]-64298 Level 4 Est. Patient 16:21:19 CUSTOMER ACCOUNT TECHNICIAN Baltazar Childers MD [facility]-25879 Level 4 Est. Patient 12:25:11 CDT Baltazar Childers MD [facility]-69898 Level 4 Est. Patient 14:22:31 CDT Baltazar Childers MD [facility]-18512 Level 4 Est. Patient 15:44:38 [facility] Patient 11:34:17 CDT Baltazar Childers MD [facility]-07147 Level 3 Est. Patient 16:40:40 CDT Baltazar Childers MD [facility]-91827 Level 4 Est. Patient 10:41:24 CDT Baltazar Childers MD [facility]-93756 Level 4 Est. Patient 16:01:48 CDT Baltazar Childers MD [facility]-28370 Level 4 Est. Patient 16:54:07 CUSTOMER ACCOUNT TECHNICIAN Baltazar Childers MD [facility]-69499 Level 4 Est. Patient 15:42:12 CDT Baltazar Childers MD [facility] CPT-91661 Level 4 Est. Patient 11:29:55 CDT Baltazar Childers MD [facility] CPT-68053 Level 4 Est. Patient 14:15:19 CDT Baltazar Childers MD [facility] CPT-56149 Level 4 Est. Patient 12:20:13 CDT Baltazar Childers MD [facility] CPT-63781 Level 4 Est. Patient 14:52:45 CUSTOMER ACCOUNT TECHNICIAN Baltazar Childers MD [facility] CPT-43859 Level 4 Est. Patient 14:18:34 CUSTOMER ACCOUNT TECHNICIAN Baltazar Childers MD [facility] CPT-70111 Level 4 Est. Patient 15:18:29 CDT Baltazar Childers MD [facility] CPT-22456 Level 3 Est. Patient 12:45:34 CDT Baltazar Childers MD [facility] CPT-49199 Level 3 Est. Patient 10:10:11 CDT Baltazar Childers MD [facility] CPT-27903 Level 3 Est. Patient 14:07:50 CDT Baltazar Childers MD [facility] CPT-51020 Level 4 Est. Patient 12:26:10 CUSTOMER ACCOUNT TECHNICIAN Baltazar Childers MD [facility] CPT-91391 Level 4 Est. Patient 14:45:38 CDT Baltazar Childers MD [facility] CPT-08773 Level 4 New Patient 12:30:48 CDT Baltazar hinton MD [facility] Procedures Code Procedure Name Date Entry Date Standard Desc ription CPT-10882 Venipuncture Draw Fee 17:47:23 CDT CPT-86334 4M Drug Screen cup test, Multi-panel, urine 2018 14:28:39 CDT CPT-33990 Venipuncture Draw Fee 15:19:00 CDT CPT-000 Give Appropriate Flu Vaccine 12:25:14 CDT 2 CPT-32835 First Vx - Ix admin via ID I M or jet injects without counseling by physician 13:08:59 CDT CPT-93313 Fluzone Quadrivalent Intramuscular Suspe nsion 0.5 ML 13:08:59 CDT CPT-77037 Venipuncture Draw Fee 12:04:12 CDT CPT-07332 Lipid - LAB USE ONLY 17:39:15 CUSTOMER ACCOUNT TECHNICIAN 9 CPT-03721 HGBA1C - LAB USE ONLY 17:39:15 CUSTOMER ACCOUNT TECHNICIAN CPT-69361 CMP - LAB USE ONLY 17:39:14 CUSTOMER ACCOUNT TECHNICIAN CPT-47186 Venipuncture Draw Fee 17:39:14 CUSTOMER ACCOUNT TECHNICIAN CPT-83725 First Vx - Ix admin via ID I M or jet injects without counseling by physician 16:55:17 CUSTOMER ACCOUNT TECHNICIAN CPT-22245 Fluzone Quadrivalent Intramuscular Suspe nsion 0.5 ML 16:55:17 CUSTOMER ACCOUNT TECHNICIAN CPT-55601 Renal Panel - LAB USE ONLY 17:39:20 CDT 201 10/31/07 CPT-65574 CBC - LAB USE ONLY 17:39:20 CDT CPT-87306 Venipuncture Draw Fee 17:39:20 CDT CPT-05698 Venipuncture Draw Fee 14:33:30 CDT CPT-12552 Renal Panel - LAB USE ONLY 14:33:30 CDT 201 10/31/07 CPT-70517 CBC - LAB USE ONLY 14:33:29 CDT CPT-66035 Venipuncture Draw Fee 14:50:21 CUSTOMER ACCOUNT TECHNICIAN CPT-07925 Immunization Single Admin 17:35:35 CDT 2014 CPT-69383 Fluzone Quadrivalent preservative free ( >=3yrs.) 17:35:35 CDT CPT-32232 Venipuncture Draw Fee 12:10:27 CUSTOMER ACCOUNT TECHNICIAN CPT-85384 Fluzone Quadrivalent Intramuscular Suspe nsion 0.5 ML 10:49:13 CDT CPT-54692 First Vx Component - Ix admi n via ID IM or jet inj without physician counseling 15:17:19 CUSTOMER ACCOUNT TECHNICIAN CPT-61078 Pneumovax 23 15:17:19 CUSTOMER ACCOUNT TECHNICIAN CPT-06005 Pneumovax 14:52:45 CUSTOMER ACCOUNT TECHNICIAN CPT-49484 Venipuncture Draw Fee 14:06:30 CUSTOMER ACCOUNT TECHNICIAN CPT-000 Give Appropriate Flu Vaccine 14:18:34 CUSTOMER ACCOUNT TECHNICIAN 2 CPT-60192 Administration single or combination vac cine inc oral 14:46:00 CUSTOMER ACCOUNT TECHNICIAN CPT-02542 Influenza split virus > age 3 14:46:00 CUSTOMER ACCOUNT TECHNICIAN CPT-OV Office Visit 19:13:16 CDT CPT-15578 Zostavax 18:41:56 CDT CPT-51232 Administration single or combination vac cine inc oral 12:56:39 CDT CPT-75751 Zoster Vaccine (Zostavax) 12:56:39 CDT 2012 CPT-97029 Venipuncture Draw Fee 10:58:57 CDT CPT-64605 Sono pelvis non OB uterus ovaries cervix 17:45:04 CDT CPT-97228 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
--- OUTSIDE RECORDS SUMMARY | 2019-10-27 12:09 | XMS REPORT | Clinical Summary ---
Author Author Admin, Elba Lance [facility] [employer] Address Unknown Phone Unavailable Allergies, Adverse Reactions, [...] Comment Standard Description Annotate ASTHMA 493.90 Active Batlazar Childers MD Asthma, unspecified DEGENERATIVE DISC DISEASE, [...] Morbid obesity due to excess calories 278.01 [facility] t Baltazar Childers MD Morbid obesity Obesity Class II (BMI 35-39.9) 278.01 Refinement 10/26 Baltazar Childers MD Morbid obesity Morbid obesity due to excess calories 278.01 [facility] t Baltazar Childers MD Morbid obesity Obesity Class II (BMI 35-39.9) 278.01 Refinement 01/19 Baltazar Childers MD Morbid obesity Morbid obesity due to excess calories 278.01 [facility] t Baltazar Childers MD [...] ronary atherosclerosis of unspecified type of vessel, nikolski or graft OTH NONSPC ABN FINDNG RAD&OTH [...] 1 tab every 6-8 hours PRN HYDROCODONE-ACETAMINOPHEN 79812241563 Active Baltazar Nickerson MD Active NOVOLOG 100 UNIT/ML SUBCUTANEOUS SOLUTION 5 units with each meal. 2 INSULIN ASPART 86498241849 Active Baltazar Childers MD Active ONGLYZA 2.5 MG TABS TAKE 1 TABLET BY MOUTH EVERY DAY FOR DIABETES 2 SAXAGLIPTIN HCL 41111836167 Active Baltazar Childers MD Active GLIPIZIDE 10MG TABLETS TAKE 2 TABLETS BY MOUTH TWICE DAILY GLIPIZIDE 27309614561 Active Baltazar Childers MD Active TRUE METRIX B/G TEST STRIPS 25'S TEST BLOOD SUGAR TWICE DAILY 03/02 GLUCOSE BLOOD 14296434270 Active KENDALL Juarez Active LEVOTHYROXINE 0.112MG (112MCG) TABS TAKE 1 TABLET BY MOUTH EVERY DAY LEVOTHYROXINE SODIUM 32819108736 Active Baltazar Childers MD Active AMLODIPINE BESYLATE 5MG TABLETS TAKE 1 TABLET BY MOUTH EVERY DAY FOR HYPERTENSION AMLODIPINE BESYLATE 47530011396 Active Luma Childers MD Active LANTUS SOLOSTAR 100 UNIT/ML SUBCUTANEOUS SOLUTION PEN- INJECTOR 20 units am and 13 units at night INSULIN GLARGINE 36828901751 Active Baltazar Childers MD Active TRAMADOL HCL 50 MG ORAL TABLET 1 twice a day as needed for pain TRAMADOL HCL 94024261185 No Longer Active Baltazar Childers MD Active ROBAXIN 500 MG ORAL TABLET Take 1.5 (one and one half) tabs once daily METHOCARBAMOL 17877634809 Active Baltazar Childers MD Active TRUE METRIX AIR GLUCOSE METER DEVICE Use as directed BLOOD GLUCOSE MONITORING SUPPL 36398584191 Active Baltazar Childers MD Activ e NORTRIPTYLINE HCL 50 MG ORAL CAPSULE 1 twice a day for neuropathy 2 NORTRIPTYLINE HCL 83496641464 Active Baltazar Childers MD Acti ve ASPIRIN 81 MG TBEC Take one (1) tablet by mouth daily ASPIRIN 12028974699 Active Baltazar Childers MD Active GABAPENTIN 300 MG ORAL CAPSULE 1 three times a day 201 12/03/26 GABAPENTIN 72184041679 No Longer Active Baltazar Childers MD Activ e LISINOPRIL 20 MG ORAL TABLET 1 tablet by mouth daily at night 2016 LISINOPRIL 86655035862 Active Baltazar Childers MD Active ZITHROMAX Z-ISAIAS 250 MG ORAL TABLET Take two tablets to day and then 1 tablet daily for 4 days AZITHROMYCIN 02109674689 No Longer A ctive Baltazar Childers MD Active SUCRALFATE 1 GM ORAL TABLET 1 four times a day to coat the stoma ch SUCRALFATE 56206690723 No Longer Active Baltazar Childers MD Active PEN NEEDLES 31G X 6 MM use 1 daily INSULIN PEN NE EDLE 59850827883 Active KENDALL Juarez Active TOUJEO SOLOSTAR 300 UNIT/ML SUBCUTANEOUS SOLUTION PEN- INJECTOR 10 units SC daily INSULIN GLARGINE 45903127651 No Longer Active Rola ARGUETA Active NAPROXEN SODIUM 220 MG ORAL TABLET 1 three times a day as needed NAPROXEN SODIUM 25096919254 No Longer Active Baltazar Childers MD Active ATORVASTATIN CALCIUM 20 MG ORAL TABLET Take 1 tab daily ATORVASTATIN CALCIUM 13872502908 Active Baltazar Childers MD A ctive FUROSEMIDE 40 MG ORAL TABLET Take one by mouth daily FUROSEMIDE 93146863020 Active Baltazar Childers MD Active LISINOPRIL 20 MG ORAL TABLET Take one by mouth daily at bedtime LISINOPRIL 72387148790 No Longer Active Baltazar Childers MD Active ONETOUCH ULTRA BLUE IN VITRO STRIP Test twice a day 07/11/11 GLUCOSE BLOOD 14756777332 No Longer Active Baltazar Childers MD Acti ve TRUEPLUS LANCETS 33G Test twice a day LANCETS 4835203 5362 Active KENDALL Juarez Active TRUEDRAW LANCING DEVICE Test twice a day LANCET DEVICES 63348169703 Active Baltazar Childers MD Active TRUETRACK BLOOD GLUCOSE w/Device KIT Test twice a day BLOOD GLUCOSE MONITORING SUPPL 83562790850 Active Baltazar Childers MD Activ e GABAPENTIN 300 MG ORAL CAPSULE 1 po qd x 2 days, then 1 po BID x 2 days, then 1 po TID GABAPENTIN 72555566268 No Longer Active Baltazar Childers MD Active NAPROXEN 500 MG ORAL TABLET 1 tablet by mouth twice daily NAPROXEN 55905249805 No Longer Active Baltazar Childers MD Active PROAIR HFA 108 (90 Base) MCG/ACT INHALATION AEROSOL SO LUTION 2 puffs four times a day as needed ALBUTEROL SULFATE 21465747108 Active Paul Childers MD Active DEPO-TESTOSTERONE 200 MG/ML INTRAMUSCULAR SOLUTION as directed TESTOSTERONE CYPIONATE 37012570960 No Longer Active Baltazar Childers MD Active LIPITOR 20 MG ORAL TABLET Take one by mouth daily in evening ATORVASTATIN CALCIUM 83916532841 No Longer Active Baltazar Childers MD Active CRESTOR 10 MG ORAL TABLET 1 by mouth every day ROSUVASTATIN CALCIUM 21402933123 No Longer Active Baltazar Childers MD Active PHENTERMINE HCL 37.5 MG ORAL TABLET Take one by mouth daily PHENTERMINE HCL 91503508844 No Longer Active Baltazar Childers MD Ac tive TIZANIDINE HCL 4 MG ORAL TABLET 1 daily as needed for muscle spa sm TIZANIDINE HCL 91935957615 No Longer Active Dawna Salazar RN Active [id number] 50-325-40 MG ORAL TABLET 1 fo ur times a day as needed for heacache [id number] 20127321184 Active KENDALL Juarez Active SUMATRIPTAN SUCCINATE 100 MG ORAL TABLET 1 tablet by m outh at onset of migraine as needed SUMATRIPTAN SUCCINATE 92896494881 Active Baltazar Nickerson MD Active LORATADINE 10 MG ORAL TABLET Take one by mouth daily LORATADINE 47753096223 Active Baltazar Childers MD Active OMEPRAZOLE 20 MG ORAL CAPSULE DELAYED RELEASE Take one by mouth jostin ly OMEPRAZOLE 03916386492 Active Blatazar Childers MD Active HYDROXYZINE HCL 25 MG ORAL TABLET Take one by mouth daily HYDROXYZINE HCL 25203679132 Active Baltazar Childers MD Active ALPRAZOLAM 1 MG ORAL TABLET 1 [facility] 63433050192 Active Baltazar Childers MD Active METFORMIN HCL 1000 MG ORAL TABLET Take one by mouth twice daily METFORMIN HCL 99324550321 Active Baltazar Childers MD Active TIZANIDINE HCL 4 MG ORAL TABLET 1 daily as needed for muscle spa sm TIZANIDINE HCL 4 MG ORAL TABLET 798640 TIZANIDINE HCL Inactive PHENTERMINE HCL 37.5 MG ORAL TABLET Take one by mouth daily PHENTERMINE HCL 37.5 MG ORAL TABLET 648621 PHENTERMINE HCL Inac tive CRESTOR 10 MG ORAL TABLET 1 by mouth every day CRESTOR 10 MG ORAL TABLET 602884 ROSUVASTATIN CALCIUM Inactive LIPITOR 20 MG ORAL TABLET Take one by mouth daily in evening LIPITOR 20 MG ORAL TABLET 627535 ATORVASTATIN CALCIUM Inactive DEPO-TESTOSTERONE 200 MG/ML INTRAMUSCULAR SOLUTION as directed DEPO-TESTOSTERONE 200 MG/ML INTRAMUSCULAR SOLUTION 8190377 RUFINO TOSTERONE CYPIONATE Inactive NAPROXEN 500 MG ORAL TABLET 1 tablet by mouth twice daily NAPROXEN 500 MG ORAL TABLET 029917 NAPROXEN Inactive GABAPENTIN 300 MG ORAL CAPSULE 1 po qd x 2 days, then 1 po BID x 2 days, then 1 po TID GABAPENTIN 300 MG ORAL CAPSULE 782708 GABAP ENTIN Inactive ONETOUCH ULTRA BLUE IN VITRO STRIP Test twice a day 07/11/11 ONETOUCH ULTRA BLUE IN VITRO STRIP GLUCOSE BLOOD Inact amie NAPROXEN SODIUM 220 MG ORAL TABLET 1 three times a day as needed NAPROXEN SODIUM 220 MG ORAL TABLET 93327200942 NAPROXEN SODI UM Inactive CELINA SOLOSTAR 300 UNIT/ML SUBCUTANEOUS SOLUTION PEN- INJECTOR 10 units SC daily CELINA PARIKH 300 UNIT/ML SUBCUTANEOUS SOLUTION PEN-INJECTOR INSULIN GLARGINE Inactive SUCRALFATE 1 GM ORAL TABLET 1 four times a day to coat the stoma ch SUCRALFATE 1 GM ORAL TABLET 570587 SUCRALFATE Inac tive GABAPENTIN 300 MG ORAL CAPSULE 1 three times a day 201 12/03/26 GABAPENTIN 300 MG ORAL CAPSULE 550769 GABAPENTIN Inactive TRAMADOL HCL 50 MG ORAL TABLET 1 twice a day as needed for pain TRAMADOL HCL 50 MG ORAL TABLET 873008 TRAMADOL HCL I nactive ZITHROMAX Z-ISAIAS 250 MG ORAL TABLET Take two tablets to day and then 1 tablet daily for 4 days ZITHROMAX Z-ISAIAS 250 MG ORAL TAB LET 515465 AZITHROMYCIN Inactive Immunizations Vaccine Administration Date Value Standard Floyd cription influenza immunization (Flu Vax) has been administered 05/11 Done according to patient influenza virus vaccine, unspecified for mulation pneumococcal immunization administered Pneumovax 23 [CVX33] pneumococcal polysaccharide vaccine, 23 valent Seasonal influenza vaccine, injectable, containing preservative, for > 3 years old (Afluria, FluLaval, Fluzone, Fluvirin, Fluarix, Agriflu(>= 18 yo)) Fluzone (>3 yrs.) [EDM866] Influenza, seasonal, inject able Seasonal influenza vaccine, injectable, containing preservative, for > 3 years old (Afluria, FluLaval, Fluzone, Fluvirin, Fluarix, Agriflu(>= 18 yo)) Fluzone (>3 yrs.) [IMV378] Influenza, seasonal, inject able Vital Signs Date [...] - Chem istry sodium, serum 136 mmol/L 085-992 1682/06/04 potassium, serum 4.9 mmol/L 3.5-5.2 chloride, serum 97 mmol/L 98-107 carbon dioxide, venous blood 35.3 mmol/L 21.0-32 .0 blood glucose 239 mg/dL 65-95 calcium, serum 10.6 mg/dL 8.5-10.1 urea nitrogen, blood 31 mg/dL 7-18 creatinine, serum 2.33 mg/dL 0.60-1.30 Estimated Glomerular Filtration Rate (calc) 23 (?) mL/min/1.73m2 = OR > 60 mL/min sodium, serum 141 mmol/L 170-612 5892/07/09 potassium, serum 4.9 mmol/L 3.5-5.2 chloride, serum [...] C - Chemistry sodium, serum 137 mmol/L 347-118 2635/10/17 potassium, serum 4.9 mmol/L 3.5-5.2 chloride, serum [...] 0.40 mg/dL 0.00-1.00 cholesterol, serum 218 mg/dL 062-172 0827/12/18 triglyceride, serum, fasting 357 mg/dL 30-200 HDL cholesterol, serum 49 mg/dL 32-60 LDL cholesterol, serum 103.00 mg/dL 5.00-130.00 hemoglobin A1C, blood, as % of total hemoglobin 8.5 % 4.3-6.0 sodium, serum 142 mmol/L 829-307 0153/12/18 carbon dioxide, venous blood 32.5 mmol/L 21.0-32 [...] Ordered Encounters Code Encounter Date Provider Facility CPT-42937 [id number] Vst-Est Level IV 15:48:51 LINE HELPER Charlie Childers MD [facility] CPT-03259 [id number] Vst-Est Level V 14:28:39 CDT Aneudy Childers MD [facility] CPT-89578 [id number] Vst-Est Level IV 15:03:32 CDT Charlie Childers MD [facility] CPT-12719 [id number] Vst-Est Level III 15:51:57 CDT Baltazar Childers MD [facility] CPT-34018 80549-Iiq Vst-Est Level IV 15:14:58 CDT Charlie Childers MD [facility] CPT-87924 34045-Rvg Vst-Est Level IV 15:12:52 LINE HELPER Charlie Childers MD [facility] CPT-23197 62690-Uui Vst-Est Level IV 15:30:55 LINE HELPER Charlie Childers MD [facility] CPT-66067 95542-Ysg Vst-Est Level IV 13:49:06 C DT Ann Michelle [facility]-59697 Level 4 Est. Patient 17:26:08 CDT Ann trujillo [facility]-83416 55327-Zkr Vst-Est Level V 14:26:27 CDT Aneudy Childers MD [facility] CPT-86135 Level 4 Est. Patient 17:05:37 CDT Baltazar Childers MD [facility]-35961 Level 4 Est. Patient 16:21:19 LINE HELPER Baltazar Childers MD [facility]-32255 Level 4 Est. Patient 12:25:11 CDT Baltazar Childers MD [facility]-55308 Level 4 Est. Patient 14:22:31 CDT Baltazar Childers MD [facility]-88763 Level 4 Est. Patient 15:44:38 CDT Shonna Parker APRN [facility]-17993 Level 4 Est. Patient 11:34:17 CDT Baltazar Childers MD [facility] CPT-91790 Level 3 Est. Patient 16:40:40 CDT Baltazar Childers MD [facility]-38392 Level 4 Est. Patient 10:41:24 CDT Baltazar Childers MD [facility] CPT-30340 Level 4 Est. Patient 16:01:48 CDT Baltazar Childers MD [facility] CPT-26054 Level 4 Est. Patient 16:54:07 LINE HELPER Baltazar Childers MD [facility]-29133 Level 4 Est. Patient 15:42:12 CDT Baltazar Childers MD [facility] CPT-11896 Level 4 Est. Patient 11:29:55 CDT Baltazar Childers MD [facility] CPT-83614 Level 4 Est. Patient 14:15:19 CDT Baltazar Childers MD [facility] CPT-62389 Level 4 Est. Patient 12:20:13 CDT Baltazar Childers MD [facility] CPT-99291 Level 4 Est. Patient 14:52:45 LINE HELPER Baltazar Childers MD [facility] CPT-27710 Level 4 Est. Patient 14:18:34 LINE HELPER Baltazar Childers MD [facility] CPT-24870 Level 4 Est. Patient 15:18:29 CDT Baltazar Childers MD [facility] CPT-87305 Level 3 Est. Patient 12:45:34 CDT Baltazar Childers MD [facility] CPT-58943 Level 3 Est. Patient 10:10:11 CDT Baltazar Childers MD [facility] CPT-75151 Level 3 Est. Patient 14:07:50 CDT Baltazar Childers MD [facility] CPT-30986 Level 4 Est. Patient 12:26:10 LINE HELPER Baltazar Childers MD [facility] CPT-75044 Level 4 Est. Patient 14:45:38 CDT Baltazar Childers MD [facility] CPT-57287 Level 4 New Patient 12:30:48 CDT Baltazar hinton MD [facility] Procedures Code Procedure Name Date Entry Date Standard Desc ription CPT-65735 Venipuncture Draw Fee 17:47:23 CDT CPT-26502 4M Drug Screen cup test, Multi-panel, urine 2018 14:28:39 CDT CPT-33117 Venipuncture Draw Fee 15:19:00 CDT CPT-000 Give Appropriate Flu Vaccine 12:25:14 CDT 2 CPT-11521 First Vx - Ix admin via ID I M or jet injects without counseling by physician 13:08:59 CDT CPT-68237 Fluzone Quadrivalent Intramuscular Suspe nsion 0.5 ML 13:08:59 CDT CPT-54180 Venipuncture Draw Fee 12:04:12 CDT CPT-07239 Lipid - LAB USE ONLY 17:39:15 LINE HELPER 9 CPT-24673 HGBA1C - LAB USE ONLY 17:39:15 LINE HELPER CPT-45551 CMP - LAB USE ONLY 17:39:14 LINE HELPER CPT-11697 Venipuncture Draw Fee 17:39:14 LINE HELPER CPT-39823 First Vx - Ix admin via ID I M or jet injects without counseling by physician 16:55:17 LINE HELPER CPT-85083 Fluzone Quadrivalent Intramuscular Suspe nsion 0.5 ML 16:55:17 LINE HELPER CPT-66548 Renal Panel - LAB USE ONLY 17:39:20 CDT 201 10/31/07 CPT-85761 CBC - LAB USE ONLY 17:39:20 CDT CPT-01785 Venipuncture Draw Fee 17:39:20 CDT CPT-75701 Venipuncture Draw Fee 14:33:30 CDT CPT-70125 Renal Panel - LAB USE ONLY 14:33:30 CDT 201 10/31/07 CPT-07512 CBC - LAB USE ONLY 14:33:29 CDT CPT-48147 Venipuncture Draw Fee 14:50:21 LINE HELPER CPT-72967 Immunization Single Admin 17:35:35 CDT 2014 CPT-73415 Fluzone Quadrivalent preservative free ( >=3yrs.) 17:35:35 CDT CPT-54520 Venipuncture Draw Fee 12:10:27 LINE HELPER CPT-31226 Fluzone Quadrivalent Intramuscular Suspe nsion 0.5 ML 10:49:13 CDT CPT-26387 First Vx Component - Ix admi n via ID IM or jet inj without physician counseling 15:17:19 LINE HELPER CPT-15493 Pneumovax 23 15:17:19 LINE HELPER CPT-60731 Pneumovax 14:52:45 LINE HELPER CPT-09281 Venipuncture Draw Fee 14:06:30 LINE HELPER CPT-000 Give Appropriate Flu Vaccine 14:18:34 LINE HELPER 2 CPT-95610 Administration single or combination vac cine inc oral 14:46:00 LINE HELPER CPT-47413 Influenza split virus > age 3 14:46:00 LINE HELPER CPT-OV Office Visit 19:13:16 CDT CPT-60396 Zostavax 18:41:56 CDT CPT-13339 Administration single or combination vac cine inc oral 12:56:39 CDT CPT-15323 Zoster Vaccine (Zostavax) 12:56:39 CDT 2012 CPT-45248 Venipuncture Draw Fee 10:58:57 CDT CPT-65862 Sono pelvis non OB uterus ovaries cervix 17:45:04 CDT CPT-94438 Sono retroperitoneal complete kidneys an d bladder 17:14:36 CDT CPT-OV Office Visit 14:59:38 LINE HELPER CPT-J1070 Depo Testosterone 100 mg 14:50:13 CDT 03/05 CPT-72347 Abx/Therapy Injection 14:50:13 CDT CPT-98157 Administration single or combination vac cine inc oral 14:34:43 CDT CPT-47380 Influenza split virus > age 3 14:34:43 CDT CPT-J1070 Depo Testosterone 100 mg 17:37:13 CDT 01/11 CPT-58457 Abx/Therapy Injection 17:37:13 CDT CPT-49248 Venipuncture Draw Fee 16:30:13 CDT CPT-95801 Venipuncture Draw Fee 16:29:43 CDT CPT-J1070 Depo Testosterone 100 mg 14:45:38 CDT 01/11
--- OUTSIDE RECORDS SUMMARY | 2019-10-27 12:10 | XMS REPORT | Clinical Summary ---
Author Author Admin, [facility] Address Unknown Phone Unavailable Allergies, [...] and unspecified hyperlipidemia Familial hypercholesterolemia 272.4 Active 2018/0 11/17 Baltazar Childers MD Other and unspecified [...] Morbid obesity due to excess calories 278.01 [facility] t Baltazar Childers MD Morbid obesity Obesity Class II (BMI 35-39.9) 278.01 Refinement 10/26 Baltazar Childers MD Morbid obesity Morbid obesity due to excess calories 278.01 [facility] t Baltazar Childers MD Morbid obesity Obesity [...] of kidney and ureter CAD 414.00 Active [facility] atherosclerosis of unspecified type of vessel, [place] or graft OTH NONSPC ABN FINDNG RAD&OTH [...] stage III 585.3 Refinement 201 10/25/03 Elbamargarette Ryan RMA Chronic kidney [...] Instructions Start Date Stop Date Generic Name [facility] Status Provider Patient Instruction ONGLYZA 2.5 MG TABS TAKE 1 TABLET BY MOUTH EVERY DAY FOR DIABETES 2 SAXAGLIPTIN HCL 82615319019 Active Jagjit Faria MD Activ e GLIPIZIDE 10MG TABLETS TAKE 2 TABLETS BY MOUTH TWICE DAILY GLIPIZIDE 93308356058 Active KENDALL Juarez Active TRUE METRIX B/G TEST STRIPS 25'S TEST BLOOD SUGAR TWICE DAILY 03/02 GLUCOSE BLOOD 55326236184 Active EKNDALL Juarez Active LEVOTHYROXINE 0.112MG (112MCG) TABS TAKE 1 TABLET BY MOUTH EVERY DAY LEVOTHYROXINE SODIUM 68302414708 Active KENDALL Juarez Active AMLODIPINE BESYLATE 5MG TABLETS TAKE 1 TABLET BY MOUTH EVERY DAY FOR HYPERTENSION AMLODIPINE BESYLATE 58303822536 Active KENDALL Acosta Active LANTUS SOLOSTAR 100 UNIT/ML SUBCUTANEOUS SOLUTION PEN- INJECTOR 20 units am and 13 units at night INSULIN GLARGINE 18261048305 Active Baltazar Childers MD Active TRAMADOL HCL 50 MG ORAL TABLET 1 twice a day as needed for pain TRAMADOL HCL 31778975085 No Longer Active Baltazar Childers MD Active ROBAXIN 500 MG ORAL TABLET Take 1.5 (one and one half) tabs once daily METHOCARBAMOL 58440655111 Active Baltazar Childers MD Active TRUE METRIX AIR GLUCOSE METER DEVICE Use as directed BLOOD GLUCOSE MONITORING SUPPL 12711738424 Active Baltazar Childers MD Activ e NORTRIPTYLINE HCL 50 MG ORAL CAPSULE 1 twice a day for neuropathy 2 NORTRIPTYLINE HCL 49914797127 Active Baltazar Childers MD Acti ve ASPIRIN 81 MG TBEC Take one (1) tablet by mouth daily ASPIRIN 32855055781 Active Baltazar Childers MD Active GABAPENTIN 300 MG ORAL CAPSULE 1 three times a day 201 12/03/26 GABAPENTIN 38450136552 No Longer Active Baltazar Childers MD Activ e LISINOPRIL 20 MG ORAL TABLET 1 tablet by mouth daily at night 2016 LISINOPRIL 31505900860 Active Baltazar Childers MD Active ZITHROMAX Z-ISAIAS 250 MG ORAL TABLET Take two tablets to day and then 1 tablet daily for 4 days AZITHROMYCIN 82720944139 No Longer A ctive Baltazar Childers MD Active SUCRALFATE 1 GM ORAL TABLET 1 four times a day to coat the stoma ch SUCRALFATE 49184524789 No Longer Active Baltazar Childers MD Active PEN NEEDLES 31G X 6 MM use 1 daily INSULIN PEN NE EDLE 47143897974 Active KENDALL Juarez Active TOUJEO SOLOSTAR 300 UNIT/ML SUBCUTANEOUS SOLUTION PEN- INJECTOR 10 units SC daily INSULIN GLARGINE 23332801002 No Longer Active Rola ARGUETA Active NAPROXEN SODIUM 220 MG ORAL TABLET 1 three times a day as needed NAPROXEN SODIUM 73398022607 No Longer Active Baltazar Childers MD Active ATORVASTATIN CALCIUM 20 MG ORAL TABLET Take 1 tab daily ATORVASTATIN CALCIUM 37069989919 Active Baltazar Childers MD A ctive FUROSEMIDE 40 MG ORAL TABLET Take one by mouth daily FUROSEMIDE 46537380679 Active Baltazar Childers MD Active LISINOPRIL 20 MG ORAL TABLET Take one by mouth daily at bedtime LISINOPRIL 73106105256 No Longer Active Baltazar Childers MD Active ONETOUCH ULTRA BLUE IN VITRO STRIP Test twice a day 07/11/11 GLUCOSE BLOOD 87411819501 No Longer Active Baltazar Childers MD Acti ve TRUEPLUS LANCETS 33G Test twice a day LANCETS 8768231 7030 Active KENDALL Juarez Active TRUEDRAW LANCING DEVICE Test twice a day LANCET DEVICES 77162036126 Active Baltazar Childers MD Active TRUETRACK BLOOD GLUCOSE w/Device KIT Test twice a day BLOOD GLUCOSE MONITORING SUPPL 22722868829 Active Baltazar Childers MD Activ e HYDROCODONE-ACETAMINOPHEN 7.5-325 MG ORAL TABLET Take 1 tab every 6-8 hours PRN HYDROCODONE-ACETAMINOPHEN 18760144394 Active Baltazar Nickerson MD Active GABAPENTIN 300 MG ORAL CAPSULE 1 po qd x 2 days, then 1 po BID x 2 days, then 1 po TID GABAPENTIN 58075200458 No Longer Active Baltazar Childers MD Active NAPROXEN 500 MG ORAL TABLET 1 tablet by mouth twice daily NAPROXEN 63040462391 No Longer Active Baltazar Childers MD Active PROAIR HFA 108 (90 Base) MCG/ACT INHALATION AEROSOL SO LUTION 2 puffs four times a day as needed ALBUTEROL SULFATE 91320753085 Active Shun Arellano [employer] ASSISTANT Active DEPO-TESTOSTERONE 200 MG/ML INTRAMUSCULAR SOLUTION as directed TESTOSTERONE CYPIONATE 81894322211 No Longer Active Baltazar Childers MD Active LIPITOR 20 MG ORAL TABLET Take one by mouth daily in evening ATORVASTATIN CALCIUM 95435866697 No Longer Active Baltazar Childers MD Active CRESTOR 10 MG ORAL TABLET 1 by mouth every day ROSUVASTATIN CALCIUM 61202549951 No Longer Active Baltazar Childers MD Active PHENTERMINE HCL 37.5 MG ORAL TABLET Take one by mouth daily PHENTERMINE HCL 06764881784 No Longer Active Baltazar Childers MD Ac tive TIZANIDINE HCL 4 MG ORAL TABLET 1 daily as needed for muscle spa sm TIZANIDINE HCL 12543932664 No Longer Active Dawna Salazar RN Active [id number] 50-325-40 MG ORAL TABLET 1 fo ur times a day as needed for heacache [id number] 70743279551 Active KENDALL Juarez Active SUMATRIPTAN SUCCINATE 100 MG ORAL TABLET 1 tablet by m outh at onset of migraine as needed SUMATRIPTAN SUCCINATE 39306980450 Active Baltazar Nickerson MD Active LORATADINE 10 MG ORAL TABLET Take one by mouth daily LORATADINE 24089143111 Active Baltazar Childers MD Active OMEPRAZOLE 20 MG ORAL CAPSULE DELAYED RELEASE Take one by mouth jostin ly OMEPRAZOLE 65147640937 Active Baltazar Childers MD Active HYDROXYZINE HCL 25 MG ORAL TABLET Take one by mouth daily HYDROXYZINE HCL 00284802516 Active Baltazar Childers MD Active ALPRAZOLAM 1 MG ORAL TABLET 1 tablet by [facility] ALPRAZOLAM 04286433284 Active Baltazar Childers MD Active METFORMIN HCL 1000 MG ORAL TABLET Take one by mouth twice daily METFORMIN HCL 02639124819 Active Baltazar Childers MD Active TIZANIDINE HCL 4 MG ORAL TABLET 1 daily as needed for muscle spa sm TIZANIDINE HCL 4 MG ORAL TABLET 429380 TIZANIDINE HCL Inactive PHENTERMINE HCL 37.5 MG ORAL TABLET Take one by mouth daily PHENTERMINE HCL 37.5 MG ORAL TABLET 457208 PHENTERMINE HCL Inac tive CRESTOR 10 MG ORAL TABLET 1 by mouth every day CRESTOR 10 MG ORAL TABLET 686266 ROSUVASTATIN CALCIUM Inactive LIPITOR 20 MG ORAL TABLET Take one by mouth daily in evening LIPITOR 20 MG ORAL TABLET 806943 ATORVASTATIN CALCIUM Inactive DEPO-TESTOSTERONE 200 MG/ML INTRAMUSCULAR SOLUTION as directed DEPO-TESTOSTERONE 200 MG/ML INTRAMUSCULAR SOLUTION 3756737 RUFINO TOSTERONE CYPIONATE Inactive NAPROXEN 500 MG ORAL TABLET 1 tablet by mouth twice daily NAPROXEN 500 MG ORAL TABLET 189600 NAPROXEN Inactive GABAPENTIN 300 MG ORAL CAPSULE 1 po qd x 2 days, then 1 po BID x 2 days, then 1 po TID GABAPENTIN 300 MG ORAL CAPSULE 129363 GABAP ENTIN Inactive ONETOUCH ULTRA BLUE IN VITRO STRIP Test twice a day 07/11/11 ONETOUCH ULTRA BLUE IN VITRO STRIP GLUCOSE BLOOD Inact amie NAPROXEN SODIUM 220 MG ORAL TABLET 1 three times a day as needed NAPROXEN SODIUM 220 MG ORAL TABLET 76098506208 NAPROXEN SODI UM Inactive TOUJEO SOLOSTAR 300 UNIT/ML SUBCUTANEOUS SOLUTION PEN- INJECTOR 10 units SC daily TOUJEO SOLOSTAR 300 UNIT/ML SUBCUTANEOUS SOLUTION PEN-INJECTOR INSULIN GLARGINE Inactive SUCRALFATE 1 GM ORAL TABLET 1 four times a day to coat the stoma SUCRALFATE 1 GM ORAL TABLET 538452 SUCRALFATE Inac tive GABAPENTIN 300 MG ORAL CAPSULE 1 three times a day 201 12/03/26 GABAPENTIN 300 MG ORAL CAPSULE 704663 GABAPENTIN Inactive TRAMADOL HCL 50 MG ORAL TABLET 1 twice a day as needed for pain TRAMADOL HCL 50 MG ORAL TABLET 049364 TRAMADOL HCL I nactive ZITHROMAX Z-ISAIAS 250 MG ORAL TABLET Take two tablets to day and then 1 tablet daily for 4 days ZITHROMAX Z-ISAIAS 250 MG ORAL TAB LET 759747 AZITHROMYCIN Inactive Immunizations Vaccine Administration Date Value Standard Floyd cription influenza immunization (Flu Vax) has been administered 05/11 Done according to patient influenza virus vaccine, unspecified for mulation pneumococcal immunization administered Pneumovax 23 [CVX33] pneumococcal polysaccharide vaccine, 23 valent Seasonal influenza vaccine, injectable, containing preservative, for > 3 years old (Afluria, FluLaval, Fluzone, Fluvirin, Fluarix, Agriflu(>= 18 yo)) Fluzone (>3 yrs.) [OEV738] Influenza, seasonal, inject able Seasonal influenza vaccine, injectable, containing preservative, for > 3 years old (Afluria, FluLaval, Fluzone, Fluvirin, Fluarix, Agriflu(>= 18 yo)) Fluzone (>3 yrs.) [IIV303] Influenza, seasonal, inject able Vital Signs Date [...] - Chem istry sodium, serum 136 mmol/L 825-697 8304/06/04 potassium, serum 4.9 mmol/L 3.5-5.2 chloride, serum 97 mmol/L 98-107 carbon dioxide, venous blood 35.3 mmol/L 21.0-32 .0 blood glucose 239 mg/dL 65-95 calcium, serum 10.6 mg/dL 8.5-10.1 urea nitrogen, blood 31 mg/dL 7-18 creatinine, serum 2.33 mg/dL 0.60-1.30 Estimated Glomerular Filtration Rate (calc) 23 (?) mL/min/1.73m2 = OR > 60 mL/min sodium, serum 141 mmol/L 350-622 8974/07/09 potassium, serum 4.9 mmol/L 3.5-5.2 chloride, serum [...] C - Chemistry sodium, serum 137 mmol/L 828-607 0162/10/17 potassium, serum 4.9 mmol/L 3.5-5.2 chloride, serum [...] 0.40 mg/dL 0.00-1.00 cholesterol, serum 218 mg/dL 403-377 6118/12/18 triglyceride, serum, fasting 357 mg/dL 30-200 HDL cholesterol, serum 49 mg/dL 32-60 LDL cholesterol, serum 103.00 mg/dL 5.00-130.00 hemoglobin A1C, blood, as % of total hemoglobin 8.5 % 4.3-6.0 sodium, serum 142 mmol/L 702-047 9358/12/18 carbon dioxide, venous blood 32.5 mmol/L 21.0-32 [...] Ordered Encounters Code Encounter Date Provider Facility CPT-97889 [id number] Vst-Est Level V 14:28:39 CDT Aneudy Childers MD [facility] CPT-23745 28463-Gui Vst-Est Level IV 15:03:32 CDT Charlie Childers MD [facility] CPT-92150 [id number] Vst-Est Level III 15:51:57 CDT Baltazar Childers MD [facility] CPT-55197 86216-Sdy Vst-Est Level IV 15:14:58 CDT Charlie Childers MD [facility] CPT-83350 61753-Lvs Vst-Est Level IV 15:12:52 TEXTILE CONSERVATOR Charlie Childers MD [facility] CPT-69207 50350-Rho Vst-Est Level IV 15:30:55 TEXTILE CONSERVATOR Charlie Childers MD [facility] CPT-63192 [id number] Vst-Est Level IV 13:49:06 C DT Ann Martinez [facility] CPT-94308 Level 4 Est. Patient 17:26:08 CDT Ann trujillo [facility] CPT-16630 61520-Kra Vst-Est Level V 14:26:27 CDT Aneudy Childers MD [facility] CPT-78331 Level 4 Est. Patient 17:05:37 CDT Baltazar Childers MD [facility] CPT-28196 Level 4 Est. Patient 16:21:19 TEXTILE CONSERVATOR Baltazar Childers MD [facility] CPT-22597 Level 4 Est. Patient 12:25:11 CDT Baltazar Childers MD [facility] CPT-83666 Level 4 Est. Patient 14:22:31 CDT Baltazar Childers MD [facility] CPT-47553 Level 4 Est. Patient 15:44:38 CDT Shonna Parker APRN [facility] CPT-91679 Level 4 Est. Patient 11:34:17 CDT Baltazar Childers MD [facility] CPT-42312 Level 3 Est. Patient 16:40:40 CDT Baltazar Childers MD [facility] CPT-60189 Level 4 Est. Patient 10:41:24 CDT Baltazar Childers MD [facility]-42938 Level 4 Est. Patient 16:01:48 CDT Baltazar Childers MD [facility]-07961 Level 4 Est. Patient 16:54:07 TEXTILE CONSERVATOR Baltazar Childers MD [facility]-12985 Level 4 Est. Patient 15:42:12 CDT Baltazar Childers MD [facility] CPT-15036 Level 4 Est. Patient 11:29:55 CDT Baltazar Childers MD [facility]-77671 Level 4 Est. Patient 14:15:19 CDT Baltazar Childers MD [facility]-84928 Level 4 Est. Patient 12:20:13 CDT Baltazar Childers MD [facility]-41547 Level 4 Est. Patient 14:52:45 TEXTILE CONSERVATOR Baltazar Childers MD [facility]-13813 Level 4 Est. Patient 14:18:34 TEXTILE CONSERVATOR Baltazar Childers MD [facility]-65729 Level 4 Est. Patient 15:18:29 CDT Baltazar Childers MD [facility]-88071 Level 3 Est. Patient 12:45:34 CDT Baltazar Childers MD [facility]-64336 Level 3 Est. Patient 10:10:11 CDT Baltazar Childers MD [facility]-66564 Level 3 Est. Patient 14:07:50 CDT Baltazar Childers MD [facility]-68819 Level 4 Est. Patient 12:26:10 TEXTILE CONSERVATOR Baltazar Childers MD [facility]-65844 Level 4 Est. Patient 14:45:38 CDT Baltazar Childers MD [facility] CPT-82205 Level 4 New Patient 12:30:48 CDT Baltazar hinton MD [facility] Procedures Code Procedure Name Date Entry Date Standard Desc ription CPT-47772 Venipuncture Draw Fee 17:47:23 CDT CPT-05833 4M Drug Screen cup test, Multi-panel, urine 2018 14:28:39 CDT CPT-49257 Venipuncture Draw Fee 15:19:00 CDT CPT-000 Give Appropriate Flu Vaccine 12:25:14 CDT 2 CPT-72299 First Vx - Ix admin via ID I M or jet injects without counseling by physician 13:08:59 CDT CPT-28205 Fluzone Quadrivalent Intramuscular Suspe nsion 0.5 ML 13:08:59 CDT CPT-03352 Venipuncture Draw Fee 12:04:12 CDT CPT-62434 Lipid - LAB USE ONLY 17:39:15 TEXTILE CONSERVATOR 9 CPT-19411 HGBA1C - LAB USE ONLY 17:39:15 TEXTILE CONSERVATOR CPT-77413 CMP - LAB USE ONLY 17:39:14 TEXTILE CONSERVATOR CPT-28919 Venipuncture Draw Fee 17:39:14 TEXTILE CONSERVATOR CPT-06807 First Vx - Ix admin via ID I M or jet injects without counseling by physician 16:55:17 TEXTILE CONSERVATOR CPT-85108 Fluzone Quadrivalent Intramuscular Suspe nsion 0.5 ML 16:55:17 TEXTILE CONSERVATOR CPT-28959 Renal Panel - LAB USE ONLY 17:39:20 CDT 201 10/31/07 CPT-23638 CBC - LAB USE ONLY 17:39:20 CDT CPT-37084 Venipuncture Draw Fee 17:39:20 CDT CPT-30928 Venipuncture Draw Fee 14:33:30 CDT CPT-30360 Renal Panel - LAB USE ONLY 14:33:30 CDT 201 10/31/07 CPT-42110 CBC - LAB USE ONLY 14:33:29 CDT CPT-80922 Venipuncture Draw Fee 14:50:21 TEXTILE CONSERVATOR CPT-85468 Immunization Single Admin 17:35:35 CDT 2014 CPT-56920 Fluzone Quadrivalent preservative free ( >=3yrs.) 17:35:35 CDT CPT-21662 Venipuncture Draw Fee 12:10:27 TEXTILE CONSERVATOR CPT-83622 Fluzone Quadrivalent Intramuscular Suspe nsion 0.5 ML 10:49:13 CDT CPT-98376 First Vx Component - Ix admi n via ID IM or jet inj without physician counseling 15:17:19 TEXTILE CONSERVATOR CPT-43053 Pneumovax 23 15:17:19 TEXTILE CONSERVATOR CPT-76835 Pneumovax 14:52:45 TEXTILE CONSERVATOR CPT-93642 Venipuncture Draw Fee 14:06:30 TEXTILE CONSERVATOR CPT-000 Give Appropriate Flu Vaccine 14:18:34 TEXTILE CONSERVATOR 2 CPT-76256 Administration single or combination vac cine inc oral 14:46:00 TEXTILE CONSERVATOR CPT-40673 Influenza split virus > age 3 14:46:00 TEXTILE CONSERVATOR CPT-OV Office Visit 19:13:16 CDT CPT-14369 Zostavax 18:41:56 CDT CPT-67401 Administration single or combination vac cine inc oral 12:56:39 CDT CPT-42964 Zoster Vaccine (Zostavax) 12:56:39 CDT 2012 CPT-25190 Venipuncture Draw Fee 10:58:57 CDT CPT-85284 Sono pelvis non OB uterus ovaries cervix 17:45:04 CDT CPT-25530 Sono retroperitoneal complete kidneys an d bladder 17:14:36 CDT CPT-OV Office Visit 14:59:38 TEXTILE CONSERVATOR CPT-J1070 Depo Testosterone 100 mg 14:50:13 CDT 03/05 CPT-72103 Abx/Therapy Injection 14:50:13 CDT CPT-24845 Administration single or combination vac cine inc oral 14:34:43 CDT CPT-46982 Influenza split virus > age 3 14:34:43 CDT CPT-J1070 Depo Testosterone 100 mg 17:37:13 CDT 01/11 CPT-89527 Abx/Therapy Injection 17:37:13 CDT CPT-54460 Venipuncture Draw Fee 16:30:13 CDT CPT-47651 Venipuncture Draw Fee 16:29:43 CDT CPT-J1070 Depo Testosterone 100 mg 14:45:38 CDT 01/11
--- OUTSIDE RECORDS SUMMARY | 2019-10-27 12:10 | XMS REPORT | Clinical Summary ---
Author Author Admin, Elba Lance [facility] Address Unknown Phone Unavailable Allergies, Adverse [...] Morbid obesity due to excess calories 278.01 [facility] t Baltazar Childers MD Morbid obesity Obesity Class II (BMI 35-39.9) 278.01 Refinement 10/26 Baltazar Childers MD Morbid obesity Morbid obesity due to excess calories 278.01 [facility] t Baltazar Childers MD Morbid obesity Obesity Class II (BMI 35-39.9) 278.01 Refinement 01/19 Baltazar Childers MD Morbid obesity Morbid obesity due to excess calories 278.01 [facility] t Baltazar Childers MD Morbid obesity Obesity [...] ronary atherosclerosis of unspecified type of vessel, [facility] or graft OTH NONSPC ABN FINDNG RAD&OTH [...] 1 tab every 6-8 hours PRN HYDROCODONE-ACETAMINOPHEN 37624471730 Active Baltazar Ncikerson MD Active NOVOLOG 100 UNIT/ML SUBCUTANEOUS SOLUTION 5 units with each meal. 2 INSULIN ASPART 39495416834 Active Baltazar Childers MD Active ONGLYZA 2.5 MG TABS TAKE 1 TABLET BY MOUTH EVERY DAY FOR DIABETES 2 SAXAGLIPTIN HCL 85753687873 Active Baltazar Childers MD Active GLIPIZIDE 10MG TABLETS TAKE 2 TABLETS BY MOUTH TWICE DAILY GLIPIZIDE 20835258736 Active aBltazar Childers MD Active TRUE METRIX B/G TEST STRIPS 25'S TEST BLOOD SUGAR TWICE DAILY 03/02 GLUCOSE BLOOD 58455579744 Active KENDALL Juarez Active LEVOTHYROXINE 0.112MG (112MCG) TABS TAKE 1 TABLET BY MOUTH EVERY DAY LEVOTHYROXINE SODIUM 26358505270 Active Baltazar Childers MD Active AMLODIPINE BESYLATE 5MG TABLETS TAKE 1 TABLET BY MOUTH EVERY DAY FOR HYPERTENSION AMLODIPINE BESYLATE 88310510142 Active Luma Childers MD Active LANTUS SOLOSTAR 100 UNIT/ML SUBCUTANEOUS SOLUTION PEN- INJECTOR 20 units am and 13 units at night INSULIN GLARGINE 92211426351 Active Baltazar Childers MD Active TRAMADOL HCL 50 MG ORAL TABLET 1 twice a day as needed for pain TRAMADOL HCL 29687276005 No Longer Active Baltazar Childers MD Active ROBAXIN 500 MG ORAL TABLET Take 1.5 (one and one half) tabs once daily METHOCARBAMOL 58507475796 Active Baltazar Childers MD Active TRUE METRIX AIR GLUCOSE METER DEVICE Use as directed BLOOD GLUCOSE MONITORING SUPPL 66890344558 Active Baltazar Childers MD Activ e NORTRIPTYLINE HCL 50 MG ORAL CAPSULE 1 twice a day for neuropathy 2 NORTRIPTYLINE HCL 11050976332 Active Baltazar Childers MD Acti ve ASPIRIN 81 MG TBEC Take one (1) tablet by mouth daily ASPIRIN 69257549824 Active Baltazar Chliders MD Active GABAPENTIN 300 MG ORAL CAPSULE 1 three times a day 201 12/03/26 GABAPENTIN 77295803892 No Longer Active Baltazar Childers MD Activ e LISINOPRIL 20 MG ORAL TABLET 1 tablet by mouth daily at night 2016 LISINOPRIL 47236685708 Active Baltazar Childers MD Active ZITHROMAX Z-ISAIAS 250 MG ORAL TABLET Take two tablets to day and then 1 tablet daily for 4 days AZITHROMYCIN 70610755060 No Longer A ctive Baltazar Childers MD Active SUCRALFATE 1 GM ORAL TABLET 1 four times a day to coat the stoma ch SUCRALFATE 42461087175 No Longer Active Baltazar Childers MD Active PEN NEEDLES 31G X 6 MM use 1 daily INSULIN PEN NE EDLE 16523806345 Active KENDALL Juarez Active TOUJEO SOLOSTAR 300 UNIT/ML SUBCUTANEOUS SOLUTION PEN- INJECTOR 10 units SC daily INSULIN GLARGINE 27783266828 No Longer Active Rola ARGUETA Active NAPROXEN SODIUM 220 MG ORAL TABLET 1 three times a day as needed NAPROXEN SODIUM 75079956846 No Longer Active Baltazar Childers MD Active ATORVASTATIN CALCIUM 20 MG ORAL TABLET Take 1 tab daily ATORVASTATIN CALCIUM 53241558193 Active Baltazar Childers MD A ctive FUROSEMIDE 40 MG ORAL TABLET Take one by mouth daily FUROSEMIDE 14701569355 Active Baltazar Childers MD Active LISINOPRIL 20 MG ORAL TABLET Take one by mouth daily at bedtime LISINOPRIL 97167105229 No Longer Active Baltazar Childers MD Active ONETOUCH ULTRA BLUE IN VITRO STRIP Test twice a day 07/11/11 GLUCOSE BLOOD 15459447631 No Longer Active Baltazar Childers MD Acti ve TRUEPLUS LANCETS 33G Test twice a day LANCETS 3336928 5827 Active KENDALL Juarez Active TRUEDRAW LANCING DEVICE Test twice a day LANCET DEVICES 80346667927 Active Baltazar Childers MD Active TRUETRACK BLOOD GLUCOSE w/Device KIT Test twice a day BLOOD GLUCOSE MONITORING SUPPL 14822149099 Active Baltzaar Childers MD Activ e GABAPENTIN 300 MG ORAL CAPSULE 1 po qd x 2 days, then 1 po BID x 2 days, then 1 po TID GABAPENTIN 54116613756 No Longer Active Baltazar Childers MD Active NAPROXEN 500 MG ORAL TABLET 1 tablet by mouth twice daily NAPROXEN 44599706021 No Longer Active Baltazar Childers MD Active PROAIR HFA 108 (90 Base) MCG/ACT INHALATION AEROSOL SO LUTION 2 puffs four times a day as needed ALBUTEROL SULFATE 89457092791 Active Paul Childers MD Active DEPO-TESTOSTERONE 200 MG/ML INTRAMUSCULAR SOLUTION as directed TESTOSTERONE CYPIONATE 84208792839 No Longer Active Baltazar Childers MD Active LIPITOR 20 MG ORAL TABLET Take one by mouth daily in evening ATORVASTATIN CALCIUM 97236578448 No Longer Active Baltazar Childers MD Active CRESTOR 10 MG ORAL TABLET 1 by mouth every day ROSUVASTATIN CALCIUM 83978865692 No Longer Active Baltazar Childers MD Active PHENTERMINE HCL 37.5 MG ORAL TABLET Take one by mouth daily PHENTERMINE HCL 69085257569 No Longer Active Baltazar Childers MD Ac tive TIZANIDINE HCL 4 MG ORAL TABLET 1 daily as needed for muscle spa sm TIZANIDINE HCL 84407619689 No Longer Active Dawna Salazar RN Active HOIOBEORUX-[id number] 50-325-40 MG ORAL TABLET 1 fo ur times a day as needed for heacache [id number] 78685405837 Active KENDALL Juarez Active SUMATRIPTAN SUCCINATE 100 MG ORAL TABLET 1 tablet by m outh at onset of migraine as needed SUMATRIPTAN SUCCINATE 38880270520 Active Baltazar Nickerson MD Active LORATADINE 10 MG ORAL TABLET Take one by mouth daily LORATADINE 70555846378 Active Baltazar Childers MD Active OMEPRAZOLE 20 MG ORAL CAPSULE DELAYED RELEASE Take one by mouth jostin ly OMEPRAZOLE 39262306410 Active Baltazar Childers MD Active HYDROXYZINE HCL 25 MG ORAL TABLET Take one by mouth daily HYDROXYZINE HCL 05998011977 Active Baltazar Childers MD Active ALPRAZOLAM 1 MG ORAL TABLET 1 tablet by mouth daily at [facility] ALPRAZOLAM 08848082811 Active Baltazar Childers MD Active METFORMIN HCL 1000 MG ORAL TABLET Take one by mouth twice daily METFORMIN HCL 98716299034 Active Baltazar Childers MD Active TIZANIDINE HCL 4 MG ORAL TABLET 1 daily as needed for muscle spa sm TIZANIDINE HCL 4 MG ORAL TABLET 510991 TIZANIDINE HCL Inactive PHENTERMINE HCL 37.5 MG ORAL TABLET Take one by mouth daily PHENTERMINE HCL 37.5 MG ORAL TABLET 512793 PHENTERMINE HCL Inac tive CRESTOR 10 MG ORAL TABLET 1 by mouth every day CRESTOR 10 MG ORAL TABLET 863066 ROSUVASTATIN CALCIUM Inactive LIPITOR 20 MG ORAL TABLET Take one by mouth daily in evening LIPITOR 20 MG ORAL TABLET 371718 ATORVASTATIN CALCIUM Inactive DEPO-TESTOSTERONE 200 MG/ML INTRAMUSCULAR SOLUTION as directed DEPO-TESTOSTERONE 200 MG/ML INTRAMUSCULAR SOLUTION 6084289 RUFINO TOSTERONE CYPIONATE Inactive NAPROXEN 500 MG ORAL TABLET 1 tablet by mouth twice daily NAPROXEN 500 MG ORAL TABLET 292007 NAPROXEN Inactive GABAPENTIN 300 MG ORAL CAPSULE 1 po qd x 2 days, then 1 po BID x 2 days, then 1 po TID GABAPENTIN 300 MG ORAL CAPSULE 840906 GABAP ENTIN Inactive ONETOUCH ULTRA BLUE IN VITRO STRIP Test twice a day 07/11/11 ONETOUCH ULTRA BLUE IN VITRO STRIP GLUCOSE BLOOD Inact amie NAPROXEN SODIUM 220 MG ORAL TABLET 1 three times a day as needed NAPROXEN SODIUM 220 MG ORAL TABLET 67263084418 NAPROXEN SODI UM Inactive CELINA SOLOSTAR 300 UNIT/ML SUBCUTANEOUS SOLUTION PEN- INJECTOR 10 units SC daily CELINA PARIKH 300 UNIT/ML SUBCUTANEOUS SOLUTION PEN-INJECTOR INSULIN GLARGINE Inactive SUCRALFATE 1 GM ORAL TABLET 1 four times a day to coat the stoma ch SUCRALFATE 1 GM ORAL TABLET 572000 SUCRALFATE Inac tive GABAPENTIN 300 MG ORAL CAPSULE 1 three times a day 201 12/03/26 GABAPENTIN 300 MG ORAL CAPSULE 654005 GABAPENTIN Inactive TRAMADOL HCL 50 MG ORAL TABLET 1 twice a day as needed for pain TRAMADOL HCL 50 MG ORAL TABLET 232116 TRAMADOL HCL I nactive ZITHROMAX Z-ISAIAS 250 MG ORAL TABLET Take two tablets to day and then 1 tablet daily for 4 days ZITHROMAX Z-ISAIAS 250 MG ORAL TAB LET 222087 AZITHROMYCIN Inactive Immunizations Vaccine Administration Date Value Standard Floyd cription influenza immunization (Flu Vax) has been administered 05/11 Done according to patient influenza virus vaccine, unspecified for mulation pneumococcal immunization administered Pneumovax 23 [CVX33] pneumococcal polysaccharide vaccine, 23 valent Seasonal influenza vaccine, injectable, containing preservative, for > 3 years old (Afluria, FluLaval, Fluzone, Fluvirin, Fluarix, Agriflu(>= 18 yo)) Fluzone (>3 yrs.) [[id number]] Influenza, seasonal, inject able Seasonal influenza vaccine, injectable, containing preservative, for > 3 years old (Afluria, FluLaval, Fluzone, Fluvirin, Fluarix, Agriflu(>= 18 yo)) Fluzone (>3 yrs.) [[id number]] Influenza, seasonal, inject able Vital Signs Date [...] - Chem istry sodium, serum 136 mmol/L 874-697 1818/06/04 potassium, serum 4.9 mmol/L 3.5-5.2 chloride, serum 97 mmol/L 98-107 carbon dioxide, venous blood 35.3 mmol/L 21.0-32 .0 blood glucose 239 mg/dL 65-95 calcium, serum 10.6 mg/dL 8.5-10.1 urea nitrogen, blood 31 mg/dL 7-18 creatinine, serum 2.33 mg/dL 0.60-1.30 Estimated Glomerular Filtration Rate (calc) 23 (?) mL/min/1.73m2 = OR > 60 mL/min sodium, serum 141 mmol/L 888-363 7064/07/09 potassium, serum 4.9 mmol/L 3.5-5.2 chloride, serum [...] C - Chemistry sodium, serum 137 mmol/L 460-558 1788/10/17 potassium, serum 4.9 mmol/L 3.5-5.2 chloride, serum [...] 0.40 mg/dL 0.00-1.00 cholesterol, serum 218 mg/dL 685-356 5491/12/18 triglyceride, serum, fasting 357 mg/dL 30-200 HDL cholesterol, serum 49 mg/dL 32-60 LDL cholesterol, serum 103.00 mg/dL 5.00-130.00 hemoglobin A1C, blood, as % of total hemoglobin 8.5 % 4.3-6.0 sodium, serum 142 mmol/L 704-590 7612/12/18 carbon dioxide, venous blood 32.5 mmol/L 21.0-32 [...] Ordered Encounters Code Encounter Date Provider Facility CPT-21330 34069-Ybg Vst-Est Level IV 15:48:51 [employer]REL [employer] OPERATOR INSIDE Charlie Childers MD [facility] CPT-19374 82114-Siq Vst-Est Level V 14:28:39 CDT Aneudy Childers MD [facility] CPT-70437 27990-Unr Vst-Est Level IV 15:03:32 CDT Charlie Childers MD [facility] CPT-51716 93702-Awt Vst-Est Level III 15:51:57 CDT Baltazar Childers MD [facility] CPT-67890 44390-Zgm Vst-Est Level IV 15:14:58 CDT Charlie Childers MD [facility] CPT-48169 06627-Tme Vst-Est Level IV 15:12:52 [employer] OPERATOR INSIDE Charlie Childers MD [facility] CPT-87208 46296-Ekk Vst-Est Level IV 15:30:55 [employer] OPERATOR INSIDE Charlie Childers MD [facility] CPT-56774 87026-Dik Vst-Est Level IV 13:49:06 C DT Ann Michelle [facility]-37814 Level 4 Est. Patient 17:26:08 CDT Ann trujillo [facility]-75489 68369-Ams Vst-Est Level V 14:26:27 CDT Aneudy Childers MD [facility] CPT-77419 Level 4 Est. Patient 17:05:37 CDT Baltazar Childers MD [facility]-64146 Level 4 Est. Patient 16:21:19 [employer] OPERATOR INSIDE Baltazar Childers MD [facility]-74298 Level 4 Est. Patient 12:25:11 CDT Baltazar Childers MD [facility]-75514 Level 4 Est. Patient 14:22:31 CDT Baltazar Childers MD [facility]-30074 Level 4 Est. Patient 15:44:38 CDT Shonna Parker APRN [facility]-15142 Level 4 Est. Patient 11:34:17 CDT Baltazar Childers MD [facility] CPT-02875 Level 3 Est. Patient 16:40:40 CDT Baltazar Childers MD [facility]-84397 Level 4 Est. Patient 10:41:24 CDT Baltazar Childers MD [facility] CPT-07663 Level 4 Est. Patient 16:01:48 CDT Baltazar Childers MD [facility] CPT-95297 Level 4 Est. Patient 16:54:07 [employer] OPERATOR INSIDE Baltazar Childers MD [facility]-12698 Level 4 Est. Patient 15:42:12 CDT Baltazar Childers MD [facility] CPT-19527 Level 4 Est. Patient 11:29:55 CDT Baltazar Childers MD [facility] CPT-01151 Level 4 Est. Patient 14:15:19 CDT Baltazar Childers MD [facility] CPT-39856 Level 4 Est. Patient 12:20:13 CDT Baltazar Childers MD [facility] CPT-69430 Level 4 Est. Patient 14:52:45 [employer] OPERATOR INSIDE Baltazar Childers MD [facility] CPT-22959 Level 4 Est. Patient 14:18:34 [employer] OPERATOR INSIDE Baltazar Childers MD [facility] CPT-37521 Level 4 Est. Patient 15:18:29 CDT Baltazar Childers MD [facility] CPT-13699 Level 3 Est. Patient 12:45:34 CDT Baltazar Childers MD [facility] CPT-10650 Level 3 Est. Patient 10:10:11 CDT Baltazar Childers MD [facility] CPT-76149 Level 3 Est. Patient 14:07:50 CDT Baltazar Childers MD [facility] CPT-20498 Level 4 Est. Patient 12:26:10 [employer] OPERATOR INSIDE Baltazar Childers MD [facility] CPT-13527 Level 4 Est. Patient 14:45:38 CDT Baltazar Childers MD [facility] CPT-64539 Level 4 New Patient 12:30:48 CDT Baltazar hinton MD [facility] Procedures Code Procedure Name Date Entry Date Standard Desc ription CPT-18718 Venipuncture Draw Fee 17:47:23 CDT CPT-98977 4M Drug Screen cup test, Multi-panel, urine 2018 14:28:39 CDT CPT-43221 Venipuncture Draw Fee 15:19:00 CDT CPT-000 Give Appropriate Flu Vaccine 12:25:14 CDT 2 CPT-12162 First Vx - Ix admin via ID I M or jet injects without counseling by physician 13:08:59 CDT CPT-37423 Fluzone Quadrivalent Intramuscular Suspe nsion 0.5 ML 13:08:59 CDT CPT-09122 Venipuncture Draw Fee 12:04:12 CDT CPT-80665 Lipid - LAB USE ONLY 17:39:15 [employer] OPERATOR INSIDE 9 CPT-96097 HGBA1C - LAB USE ONLY 17:39:15 [employer] OPERATOR INSIDE CPT-96364 CMP - LAB USE ONLY 17:39:14 [employer] OPERATOR INSIDE CPT-65354 Venipuncture Draw Fee 17:39:14 [employer]REL [employer]HE OPERATOR INSIDE CPT-30346 First Vx - Ix admin via ID I M or jet injects without counseling by physician 16:55:17 [employer]REL [employer]HE OPERATOR INSIDE CPT-32524 Fluzone Quadrivalent Intramuscular Suspe nsion 0.5 ML 16:55:17 [employer]REL [employer]HE OPERATOR INSIDE CPT-15782 Renal Panel - LAB USE ONLY 17:39:20 CDT 201 10/31/07 CPT-14528 CBC - LAB USE ONLY 17:39:20 CDT CPT-63378 Venipuncture Draw Fee 17:39:20 CDT CPT-08221 Venipuncture Draw Fee 14:33:30 CDT CPT-05501 Renal Panel - LAB USE ONLY 14:33:30 CDT 201 10/31/07 CPT-66993 CBC - LAB USE ONLY 14:33:29 CDT CPT-26364 Venipuncture Draw Fee 14:50:21 [employer]REL [employer]HE OPERATOR INSIDE CPT-28772 Immunization Single Admin 17:35:35 CDT 2014 CPT-69135 Fluzone Quadrivalent preservative free ( >=3yrs.) 17:35:35 CDT CPT-18680 Venipuncture Draw Fee 12:10:27 [employer] OPERATOR INSIDE CPT-83734 Fluzone Quadrivalent Intramuscular Suspe nsion 0.5 ML 10:49:13 CDT CPT-84097 First Vx Component - Ix admi n via ID IM or jet inj without physician counseling 15:17:19 [employer] OPERATOR INSIDE CPT-01967 Pneumovax 23 15:17:19 [employer] OPERATOR INSIDE CPT-19824 Pneumovax 14:52:45 [employer] OPERATOR INSIDE CPT-08599 Venipuncture Draw Fee 14:06:30 [employer] OPERATOR INSIDE CPT-000 Give Appropriate Flu Vaccine 14:18:34 [employer] OPERATOR INSIDE 2 CPT-20291 Administration single or combination vac cine inc oral 14:46:00 [employer] OPERATOR INSIDE CPT-38611 Influenza split virus > age 3 14:46:00 [employer]REL LATHE OPERATOR INSIDE CPT-OV Office Visit 19:13:16 CDT CPT-99885 Zostavax 18:41:56 CDT CPT-32303 Administration single or combination vac cine inc oral 12:56:39 CDT CPT-44546 Zoster Vaccine (Zostavax) 12:56:39 CDT 2012 CPT-04701 Venipuncture Draw Fee 10:58:57 CDT CPT-44536 Sono pelvis non OB uterus ovaries cervix 17:45:04 CDT CPT-99656 Sono retroperitoneal complete kidneys an d bladder 17:14:36 CDT CPT-OV Office Visit 14:59:38 [employer] OPERATOR INSIDE CPT-J1070 Depo Testosterone 100 mg 14:50:13 CDT 03/05 CPT-18735 Abx/Therapy Injection 14:50:13 CDT CPT-48856 Administration single or combination vac cine inc oral 14:34:43 CDT CPT-57925 Influenza split virus > age 3 14:34:43 CDT CPT-J1070 Depo Testosterone 100 mg 17:37:13 CDT 01/11 CPT-97858 Abx/Therapy Injection 17:37:13 CDT CPT-93484 Venipuncture Draw Fee 16:30:13 CDT CPT-89826 Venipuncture Draw Fee 16:29:43 CDT CPT-J1070 Depo Testosterone 100 mg 14:45:38 CDT 01/11
--- OUTSIDE RECORDS SUMMARY | 2019-10-27 12:10 | XMS REPORT | Clinical Summary ---
[...] EVERY DAY FOR DIABETES 2 SAXAGLIPTIN HCL 51880390899 Active Jagjit Faria MD Activ e GLIPIZIDE 10MG TABLETS TAKE 2 TABLETS BY MOUTH TWICE DAILY GLIPIZIDE 21381320493 Active KENDALL Juarez Active TRUE METRIX B/G TEST STRIPS 25'S TEST BLOOD SUGAR TWICE DAILY 03/02 GLUCOSE BLOOD 31829569355 Active KENDALL Juarez Active LEVOTHYROXINE 0.112MG (112MCG) TABS TAKE 1 TABLET BY MOUTH EVERY DAY LEVOTHYROXINE SODIUM 90535843463 Active KENDALL Juarez Active AMLODIPINE BESYLATE 5MG TABLETS TAKE 1 TABLET BY MOUTH EVERY DAY FOR HYPERTENSION AMLODIPINE BESYLATE 26106161272 Active KENDALL Acosta Active LANTUS SOLOSTAR 100 UNIT/ML SUBCUTANEOUS SOLUTION PEN- INJECTOR 20 units am and 13 units at night INSULIN GLARGINE 12486170447 Active Baltazar Childers MD Active TRAMADOL HCL 50 MG ORAL TABLET 1 twice a day as needed for pain TRAMADOL HCL 39384102882 No Longer Active Baltazar Childers MD Active ROBAXIN 500 MG ORAL TABLET Take 1.5 (one and one half) tabs once daily METHOCARBAMOL 21377386570 Active Baltazar Childers MD Active TRUE METRIX AIR GLUCOSE METER DEVICE Use as directed BLOOD GLUCOSE MONITORING SUPPL 75612964627 Active Baltazar Childers MD Activ e NORTRIPTYLINE HCL 50 MG ORAL CAPSULE 1 twice a day for neuropathy 2 NORTRIPTYLINE HCL 62716003998 Active Baltazar Childers MD Acti ve ASPIRIN 81 MG TBEC Take one (1) tablet by mouth daily ASPIRIN 56363989404 Active Baltazar Childers MD Active GABAPENTIN 300 MG ORAL CAPSULE 1 three times a day 201 12/03/26 GABAPENTIN 97487029003 No Longer Active Baltazar Childers MD Activ e LISINOPRIL 20 MG ORAL TABLET 1 tablet by mouth daily at night 2016 LISINOPRIL 34116454181 Active Baltazar Childers MD Active ZITHROMAX Z-ISAIAS 250 MG ORAL TABLET Take two tablets to day and then 1 tablet daily for 4 days AZITHROMYCIN 82347504077 No Longer A ctive Baltazar Childers MD Active SUCRALFATE 1 GM ORAL TABLET 1 four times a day to coat the stoma ch SUCRALFATE 39850198610 No Longer Active Baltazar Childers MD Active PEN NEEDLES 31G X 6 MM use 1 daily INSULIN PEN NE EDLE 45102618507 Active KENDALL Juarez Active TOUJEO SOLOSTAR 300 UNIT/ML SUBCUTANEOUS SOLUTION PEN- INJECTOR 10 units SC daily INSULIN GLARGINE 92943069161 No Longer Active Rola ARGUETA Active NAPROXEN SODIUM 220 MG ORAL TABLET 1 three times a day as needed NAPROXEN SODIUM 94861583206 No Longer Active Baltazar Chliders MD Active ATORVASTATIN CALCIUM 20 MG ORAL TABLET Take 1 tab daily ATORVASTATIN CALCIUM 82679839361 Active Baltazar Childers MD A ctive FUROSEMIDE 40 MG ORAL TABLET Take one by mouth daily FUROSEMIDE 33144189525 Active Baltazar Childers MD Active LISINOPRIL 20 MG ORAL TABLET Take one by mouth daily at bedtime LISINOPRIL 55721828239 No Longer Active Baltazar Childers MD Active ONETOUCH ULTRA BLUE IN VITRO STRIP Test twice a day 07/11/11 GLUCOSE BLOOD 29817480978 No Longer Active Baltazar Childers MD Acti ve TRUEPLUS LANCETS 33G Test twice a day LANCETS 0977396 1448 Active KENDALL Juarez Active TRUEDRAW LANCING DEVICE Test twice a day LANCET DEVICES 86428926532 Active Baltazar Childers MD Active TRUETRACK BLOOD GLUCOSE w/Device KIT Test twice a day BLOOD GLUCOSE MONITORING SUPPL 70192672282 Active Baltazar Childers MD Activ e HYDROCODONE-ACETAMINOPHEN 7.5-325 MG ORAL TABLET Take 1 tab every 6-8 hours PRN HYDROCODONE-ACETAMINOPHEN 25848459732 Active Baltazar Nickerson MD Active GABAPENTIN 300 MG ORAL CAPSULE 1 po qd x 2 days, then 1 po BID x 2 days, then 1 po TID GABAPENTIN 12156721680 No Longer Active Batlazar Childers MD Active NAPROXEN 500 MG ORAL TABLET 1 tablet by mouth twice daily NAPROXEN 03592875992 No Longer Active Baltazar Childers MD Active PROAIR HFA 108 (90 Base) MCG/ACT INHALATION AEROSOL SO LUTION 2 puffs four times a day as needed ALBUTEROL SULFATE 98590611554 Active Shun Arellano LPN Active DEPO-TESTOSTERONE 200 MG/ML INTRAMUSCULAR SOLUTION as directed TESTOSTERONE CYPIONATE 10777157355 No Longer Active Baltazar Childers MD Active LIPITOR 20 MG ORAL TABLET Take one by mouth daily in evening ATORVASTATIN CALCIUM 28909024082 No Longer Active Baltazar Childers MD Active CRESTOR 10 MG ORAL TABLET 1 by mouth every day ROSUVASTATIN CALCIUM 87462544667 No Longer Active Baltazar Childers MD Active PHENTERMINE HCL 37.5 MG ORAL TABLET Take one by mouth daily PHENTERMINE HCL 58213054344 No Longer Active Baltazar Childers MD Ac tive TIZANIDINE HCL 4 MG ORAL TABLET 1 daily as needed for muscle spa sm TIZANIDINE HCL 04488554675 No Longer Active Dawna Salazar RN Active [id number] 50-325-40 MG ORAL TABLET 1 fo ur times a day as needed for heacache [id number] 43031123402 Active KENDALL Juarez Active SUMATRIPTAN SUCCINATE 100 MG ORAL TABLET 1 tablet by m outh at onset of migraine as needed SUMATRIPTAN SUCCINATE 06775491843 Active Baltazar Nickerson MD Active LORATADINE 10 MG ORAL TABLET Take one by mouth daily LORATADINE 64553311617 Active Baltazar Childers MD Active OMEPRAZOLE 20 MG ORAL CAPSULE DELAYED RELEASE Take one by mouth jostin ly OMEPRAZOLE 82567756145 Active Baltazar Childers MD Active HYDROXYZINE HCL 25 MG ORAL TABLET Take one by mouth daily HYDROXYZINE HCL 76008239124 Active Baltazar Childers MD Active ALPRAZOLAM 1 MG ORAL TABLET 1 [facility] 60721054967 Active Baltazar Childers MD Active METFORMIN HCL 1000 MG ORAL TABLET Take one by mouth twice daily METFORMIN HCL 72915510360 Active Baltazar Childers MD Active TIZANIDINE HCL 4 MG ORAL TABLET 1 daily as needed for muscle spa sm TIZANIDINE HCL 4 MG ORAL TABLET 408970 TIZANIDINE HCL Inactive PHENTERMINE HCL 37.5 MG ORAL TABLET Take one by mouth daily PHENTERMINE HCL 37.5 MG ORAL TABLET 047890 PHENTERMINE HCL Inac tive CRESTOR 10 MG ORAL TABLET 1 by mouth every day CRESTOR 10 MG ORAL TABLET 669812 ROSUVASTATIN CALCIUM Inactive LIPITOR 20 MG ORAL TABLET Take one by mouth daily in evening LIPITOR 20 MG ORAL TABLET 125423 ATORVASTATIN CALCIUM Inactive DEPO-TESTOSTERONE 200 MG/ML INTRAMUSCULAR SOLUTION as directed DEPO-TESTOSTERONE 200 MG/ML INTRAMUSCULAR SOLUTION 7075124 RUFINO TOSTERONE CYPIONATE Inactive NAPROXEN 500 MG ORAL TABLET 1 tablet by mouth twice daily NAPROXEN 500 MG ORAL TABLET 024313 NAPROXEN Inactive GABAPENTIN 300 MG ORAL CAPSULE 1 po qd x 2 days, then 1 po BID x 2 days, then 1 po TID GABAPENTIN 300 MG ORAL CAPSULE 997509 GABAP ENTIN Inactive ONETOUCH ULTRA BLUE IN VITRO STRIP Test twice a day 07/11/11 ONETOUCH ULTRA BLUE IN VITRO STRIP GLUCOSE BLOOD Inact amie NAPROXEN SODIUM 220 MG ORAL TABLET 1 three times a day as needed NAPROXEN SODIUM 220 MG ORAL TABLET 15523622579 NAPROXEN SODI UM Inactive TOUJEO SOLOSTAR 300 UNIT/ML SUBCUTANEOUS SOLUTION PEN- INJECTOR 10 units SC daily TOUJEO SOLOSTAR 300 UNIT/ML SUBCUTANEOUS SOLUTION PEN-INJECTOR INSULIN GLARGINE Inactive SUCRALFATE 1 GM ORAL TABLET 1 four times a day to coat the stoma ch SUCRALFATE 1 GM ORAL TABLET 038695 SUCRALFATE Inac tive GABAPENTIN 300 MG ORAL CAPSULE 1 three times a day 201 12/03/26 GABAPENTIN 300 MG ORAL CAPSULE 016683 GABAPENTIN Inactive TRAMADOL HCL 50 MG ORAL TABLET 1 twice a day as needed for pain TRAMADOL HCL 50 MG ORAL TABLET 794942 TRAMADOL HCL I nactive ZITHROMAX Z-ISAIAS 250 MG ORAL TABLET Take two tablets to day and then 1 tablet daily for 4 days ZITHROMAX Z-ISAIAS 250 MG ORAL TAB LET 920699 AZITHROMYCIN Inactive Immunizations Vaccine Administration Date Value Standard Floyd cription influenza immunization (Flu Vax) has been administered 05/11 Done according to patient influenza virus vaccine, unspecified for mulation pneumococcal immunization administered Pneumovax 23 [CVX33] pneumococcal polysaccharide vaccine, 23 valent Seasonal influenza vaccine, injectable, containing preservative, for > 3 years old (Afluria, FluLaval, Fluzone, Fluvirin, Fluarix, Agriflu(>= 18 yo)) Fluzone (>3 yrs.) [QGL652] Influenza, seasonal, inject able Seasonal influenza vaccine, injectable, containing preservative, for > 3 years old (Afluria, FluLaval, Fluzone, Fluvirin, Fluarix, Agriflu(>= 18 yo)) Fluzone (>3 yrs.) [BOV084] Influenza, seasonal, inject able Vital Signs Date [...] - Chem istry sodium, serum 136 mmol/L 252-234 2286/06/04 potassium, serum 4.9 mmol/L 3.5-5.2 chloride, serum 97 mmol/L 98-107 carbon dioxide, venous blood 35.3 mmol/L 21.0-32 .0 blood glucose 239 mg/dL 65-95 calcium, serum 10.6 mg/dL 8.5-10.1 urea nitrogen, blood 31 mg/dL 7-18 creatinine, serum 2.33 mg/dL 0.60-1.30 Estimated Glomerular Filtration Rate (calc) 23 (?) mL/min/1.73m2 = OR > 60 mL/min sodium, serum 141 mmol/L 085-253 3949/07/09 potassium, serum 4.9 mmol/L 3.5-5.2 chloride, serum [...] C - Chemistry sodium, serum 137 mmol/L 578-093 8844/10/17 potassium, serum 4.9 mmol/L 3.5-5.2 chloride, serum [...] 0.40 mg/dL 0.00-1.00 cholesterol, serum 218 mg/dL 856-197 3304/12/18 triglyceride, serum, fasting 357 mg/dL 30-200 HDL cholesterol, serum 49 mg/dL 32-60 LDL cholesterol, serum 103.00 mg/dL 5.00-130.00 hemoglobin A1C, blood, as % of total hemoglobin 8.5 % 4.3-6.0 sodium, serum 142 mmol/L 885-979 0341/12/18 carbon dioxide, venous blood 32.5 mmol/L 21.0-32 [...] Ordered Encounters Code Encounter Date Provider Facility CPT-87344 [id number] Vst-Est Level V 14:28:39 CDT Aneudy Childers MD [facility] CPT-34011 [id number] Vst-Est Level IV 15:03:32 CDT Charlie Childers MD [facility] CPT-39072 [id number] Vst-Est Level III 15:51:57 CDT Baltazar Childers MD [facility] CPT-24209 [id number] Vst-Est Level IV 15:14:58 CDT Charlie Childers MD [facility] CPT-00551 83554-Eap Vst-Est Level IV 15:12:52 FOXING CUTTING MACHINE OPERATOR Charlie Childers MD [facility] CPT-91257 [id number] Vst-Est Level IV 15:30:55 FOXING CUTTING MACHINE OPERATOR Charlie Childers MD [facility] CPT-10818 76355-Foz Vst-Est Level IV 13:49:06 C DT Ann JACOBORobert [facility] CPT-61577 Level 4 Est. Patient 17:26:08 CDT Ann JACOBORobert [facility] CPT-69190 65280-Mee Vst-Est Level V 14:26:27 CDT Aneudy Childers MD [facility] CPT-47862 Level 4 Est. Patient 17:05:37 CDT Baltazar Childers MD [facility] CPT-77583 Level 4 Est. Patient 16:21:19 FOXING CUTTING MACHINE OPERATOR Baltazar Childers MD [facility] CPT-76729 Level 4 Est. Patient 12:25:11 CDT Baltazar Childers MD [facility] CPT-28815 Level 4 Est. Patient 14:22:31 CDT Baltazar Childers MD [facility] CPT-93423 Level 4 Est. Patient 15:44:38 CDT Shonna Parker APRN [facility] CPT-80119 Level 4 Est. Patient 11:34:17 CDT Baltazar Childers MD [facility] CPT-69455 Level 3 Est. Patient 16:40:40 CDT Baltazar Childers MD [facility]-24405 Level 4 Est. Patient 10:41:24 CDT Baltazar Childers MD [facility]-88815 Level 4 Est. Patient 16:01:48 CDT Baltazar Childers MD [facility]-84859 Level 4 Est. Patient 16:54:07 FOXING CUTTING MACHINE OPERATOR Baltazar Childers MD [facility]-56333 Level 4 Est. Patient 15:42:12 CDT Baltazar Childers MD [facility]-22255 Level 4 Est. Patient 11:29:55 CDT Baltazar Childers MD [facility] CPT-08539 Level 4 Est. Patient 14:15:19 CDT Baltazar Childers MD [facility] CPT-68822 Level 4 Est. Patient 12:20:13 CDT Baltazar Childers MD [facility] CPT-81445 Level 4 Est. Patient 14:52:45 FOXING CUTTING MACHINE OPERATOR Baltazar Childers MD [facility]-87602 Level 4 Est. Patient 14:18:34 FOXING CUTTING MACHINE OPERATOR Baltazar Childers MD [facility] CPT-95096 Level 4 Est. Patient 15:18:29 CDT Baltazar Childers MD [facility] CPT-42652 Level 3 Est. Patient 12:45:34 CDT Baltazar Childers MD [facility] CPT-96769 Level 3 Est. Patient 10:10:11 CDT Baltazar Childers MD [facility]-03542 Level 3 Est. Patient 14:07:50 CDT Baltazar Childers MD [facility] CPT-19129 Level 4 Est. Patient 12:26:10 FOXING CUTTING MACHINE OPERATOR Baltazar Childers MD [facility] CPT-09389 Level 4 Est. Patient 14:45:38 CDT Baltazar Childers MD [facility] CPT-24377 Level 4 New Patient 12:30:48 CDT Baltazar hinton MD [facility] Procedures Code Procedure Name Date Entry Date Standard Desc ription CPT-89422 Venipuncture Draw Fee 17:47:23 CDT CPT-96923 4M Drug Screen cup test, Multi-panel, urine 2018 14:28:39 CDT CPT-01076 Venipuncture Draw Fee 15:19:00 CDT CPT-000 Give Appropriate Flu Vaccine 12:25:14 CDT 2 CPT-40524 First Vx - Ix admin via ID I M or jet injects without counseling by physician 13:08:59 CDT CPT-19603 Fluzone Quadrivalent Intramuscular Suspe nsion 0.5 ML 13:08:59 CDT CPT-80069 Venipuncture Draw Fee 12:04:12 CDT CPT-55530 Lipid - LAB USE ONLY 17:39:15 FOXING CUTTING MACHINE OPERATOR 9 CPT-26152 HGBA1C - LAB USE ONLY 17:39:15 FOXING CUTTING MACHINE OPERATOR CPT-71745 CMP - LAB USE ONLY 17:39:14 FOXING CUTTING MACHINE OPERATOR CPT-31854 Venipuncture Draw Fee 17:39:14 FOXING CUTTING MACHINE OPERATOR CPT-58467 First Vx - Ix admin via ID I M or jet injects without counseling by physician 16:55:17 FOXING CUTTING MACHINE OPERATOR CPT-48109 Fluzone Quadrivalent Intramuscular Suspe nsion 0.5 ML 16:55:17 FOXING CUTTING MACHINE OPERATOR CPT-74678 Renal Panel - LAB USE ONLY 17:39:20 CDT 201 10/31/07 CPT-82294 CBC - LAB USE ONLY 17:39:20 CDT CPT-54739 Venipuncture Draw Fee 17:39:20 CDT CPT-17429 Venipuncture Draw Fee 14:33:30 CDT CPT-77576 Renal Panel - LAB USE ONLY 14:33:30 CDT 201 10/31/07 CPT-57836 CBC - LAB USE ONLY 14:33:29 CDT CPT-69486 Venipuncture Draw Fee 14:50:21 FOXING CUTTING MACHINE OPERATOR CPT-88661 Immunization Single Admin 17:35:35 CDT 2014 CPT-82348 Fluzone Quadrivalent preservative free ( >=3yrs.) 17:35:35 CDT CPT-79582 Venipuncture Draw Fee 12:10:27 FOXING CUTTING MACHINE OPERATOR CPT-68507 Fluzone Quadrivalent Intramuscular Suspe nsion 0.5 ML 10:49:13 CDT CPT-36412 First Vx Component - Ix admi n via ID IM or jet inj without physician counseling 15:17:19 FOXING CUTTING MACHINE OPERATOR CPT-41413 Pneumovax 23 15:17:19 FOXING CUTTING MACHINE OPERATOR CPT-99981 Pneumovax 14:52:45 FOXING CUTTING MACHINE OPERATOR CPT-37841 Venipuncture Draw Fee 14:06:30 FOXING CUTTING MACHINE OPERATOR CPT-000 Give Appropriate Flu Vaccine 14:18:34 FOXING CUTTING MACHINE OPERATOR 2 CPT-43387 Administration single or combination vac cine inc oral 14:46:00 FOXING CUTTING MACHINE OPERATOR CPT-85885 Influenza split virus > age 3 14:46:00 FOXING CUTTING MACHINE OPERATOR CPT-OV Office Visit 19:13:16 CDT CPT-14717 Zostavax 18:41:56 CDT CPT-70766 Administration single or combination vac cine inc oral 12:56:39 CDT CPT-52025 Zoster Vaccine (Zostavax) 12:56:39 CDT 2012 CPT-06924 Venipuncture Draw Fee 10:58:57 CDT CPT-16036 Sono pelvis non OB uterus ovaries cervix 17:45:04 CDT CPT-29043 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
--- OUTSIDE RECORDS SUMMARY | 2019-10-27 12:11 | XMS REPORT | Clinical Summary ---
Author Author Admin, Elba Lance [facility] Address Unknown Phone Unavailable Allergies, Adverse Reactions, [...] Morbid obesity due to excess calories 278.01 [facility] t Baltazar Childers MD Morbid obesity Obesity Class II (BMI 35-39.9) 278.01 Refinement 10/26 Baltazar Childers MD Morbid obesity Morbid obesity due to excess calories 278.01 [facility] t Baltazar Childers MD [...] ronary atherosclerosis of unspecified type of vessel, galena or graft OTH NONSPC ABN FINDNG RAD&OTH [...] Instructions Start Date Stop Date Generic Name [facility] Status Provider Patient Instruction GLIPIZIDE 10MG TABLETS TAKE 2 TABLETS BY MOUTH TWICE DAILY GLIPIZIDE 41455563806 Active KENDALL Juarez Active TRUE METRIX B/G TEST STRIPS 25'S TEST BLOOD SUGAR TWICE DAILY 03/02 GLUCOSE BLOOD 32468734696 Active KENDALL Juarez Active ONGLYZA 2.5MG TABLETS TAKE 1 TABLET BY MOUTH DAILY FOR DIABETES 201 02/01/09 SAXAGLIPTIN HCL 93131743065 Active KENDALL Juarez Active LEVOTHYROXINE 0.112MG (112MCG) TABS TAKE 1 TABLET BY MOUTH EVERY DAY LEVOTHYROXINE SODIUM 62178428618 Active KENDALL Juarez Active AMLODIPINE BESYLATE 5MG TABLETS TAKE 1 TABLET BY MOUTH EVERY DAY FOR HYPERTENSION AMLODIPINE BESYLATE 41709538019 Active KENDALL Acosta Active LANTUS SOLOSTAR 100 UNIT/ML SUBCUTANEOUS SOLUTION PEN- INJECTOR 20 units am and 13 units at night INSULIN GLARGINE 89674893266 Active Baltazar Childers MD Active TRAMADOL HCL 50 MG ORAL TABLET 1 twice a day as needed for pain TRAMADOL HCL 19408307287 No Longer Active Baltazar Childers MD Active ROBAXIN 500 MG ORAL TABLET Take 1.5 (one and one half) tabs once daily METHOCARBAMOL 86516665807 Active Baltazar Childers MD Active TRUE METRIX AIR GLUCOSE METER DEVICE Use as directed BLOOD GLUCOSE MONITORING SUPPL 19840577684 Active Baltazar Childers MD Activ e NORTRIPTYLINE HCL 50 MG ORAL CAPSULE 1 twice a day for neuropathy 2 NORTRIPTYLINE HCL 62809512539 Active Baltazar Childers MD Acti ve ASPIRIN 81 MG TBEC Take one (1) tablet by mouth daily ASPIRIN 47312033602 Active Baltazar Childers MD Active GABAPENTIN 300 MG ORAL CAPSULE 1 three times a day 201 12/03/26 GABAPENTIN 89103713922 No Longer Active Baltazar Childers MD Activ e LISINOPRIL 20 MG ORAL TABLET 1 tablet by mouth daily at night 2016 LISINOPRIL 35266171592 Active Baltazar Childers MD Active ZITHROMAX Z-ISAIAS 250 MG ORAL TABLET Take two tablets to day and then 1 tablet daily for 4 days AZITHROMYCIN 91307451965 No Longer A ctive Baltazar Childers MD Active SUCRALFATE 1 GM ORAL TABLET 1 four times a day to coat the stoma ch SUCRALFATE 86707688423 No Longer Active Baltazar Childers MD Active PEN NEEDLES 31G X 6 MM use 1 daily INSULIN PEN NE EDLE 01822919289 Active KENDALL Juarez Active TOUJEO SOLOSTAR 300 UNIT/ML SUBCUTANEOUS SOLUTION PEN- INJECTOR 10 units SC daily INSULIN GLARGINE 43427793381 No Longer Active Rola ARGUETA Active NAPROXEN SODIUM 220 MG ORAL TABLET 1 three times a day as needed NAPROXEN SODIUM 73627415479 No Longer Active Baltazar Childers MD Active ATORVASTATIN CALCIUM 20 MG ORAL TABLET Take 1 tab daily ATORVASTATIN CALCIUM 73655864672 Active Baltazar Childers MD A ctive FUROSEMIDE 40 MG ORAL TABLET Take one by mouth daily FUROSEMIDE 27860770202 Active Baltazar Childers MD Active LISINOPRIL 20 MG ORAL TABLET Take one by mouth daily at bedtime LISINOPRIL 09282211386 No Longer Active Baltazar Childers MD Active ONETOUCH ULTRA BLUE IN VITRO STRIP Test twice a day 07/11/11 GLUCOSE BLOOD 97669748450 No Longer Active Baltazar Childers MD Acti ve TRUEPLUS LANCETS 33G Test twice a day LANCETS 0386897 8178 Active KENDALL Juarez Active TRUEDRAW LANCING DEVICE Test twice a day LANCET DEVICES 62285531199 Active Baltazar Childers MD Active TRUETRACK BLOOD GLUCOSE w/Device KIT Test twice a day BLOOD GLUCOSE MONITORING SUPPL 38403656612 Active Baltazar Childers MD Activ e HYDROCODONE-ACETAMINOPHEN 7.5-325 MG ORAL TABLET Take 1 tab every 6-8 hours PRN HYDROCODONE-ACETAMINOPHEN 88673606915 Active Baltazar Nickerson MD Active GABAPENTIN 300 MG ORAL CAPSULE 1 po qd x 2 days, then 1 po BID x 2 days, then 1 po TID GABAPENTIN 73284228996 No Longer Active Baltazar Childers MD Active NAPROXEN 500 MG ORAL TABLET 1 tablet by mouth twice daily NAPROXEN 04307542090 No Longer Active Baltazar Childers MD Active PROAIR HFA 108 (90 Base) MCG/ACT INHALATION AEROSOL SO LUTION 2 puffs four times a day as needed ALBUTEROL SULFATE 44260800797 Active Suhn Arellano LPN Active DEPO-TESTOSTERONE 200 MG/ML INTRAMUSCULAR SOLUTION as directed TESTOSTERONE CYPIONATE 55816463448 No Longer Active Baltazar Childers MD Active LIPITOR 20 MG ORAL TABLET Take one by mouth daily in evening ATORVASTATIN CALCIUM 96941160482 No Longer Active Baltazar Childers MD Active CRESTOR 10 MG ORAL TABLET 1 by mouth every day ROSUVASTATIN CALCIUM 35561854729 No Longer Active Baltazar Childers MD Active PHENTERMINE HCL 37.5 MG ORAL TABLET Take one by mouth daily PHENTERMINE HCL 63770525879 No Longer Active Baltazar Childers MD Ac tive TIZANIDINE HCL 4 MG ORAL TABLET 1 daily as needed for muscle spa sm TIZANIDINE HCL 95299439904 No Longer Active Dawna Salazar RN Active [id number] 50-325-40 MG ORAL TABLET 1 fo ur times a day as needed for heacache [id number] 25461781493 Active KENDALL Juarez Active SUMATRIPTAN SUCCINATE 100 MG ORAL TABLET 1 tablet by m outh at onset of migraine as needed SUMATRIPTAN SUCCINATE 48374948823 Active Baltazar Nickerson MD Active LORATADINE 10 MG ORAL TABLET Take one by mouth daily LORATADINE 44052020810 Active Baltazar Childers MD Active OMEPRAZOLE 20 MG ORAL CAPSULE DELAYED RELEASE Take one by mouth jostin ly OMEPRAZOLE 62739090905 Active Baltazar Childers MD Active HYDROXYZINE HCL 25 MG ORAL TABLET Take one by mouth daily HYDROXYZINE HCL 04391275259 Active Baltazar Childers MD Active ALPRAZOLAM 1 MG ORAL TABLET 1 [facility] 15945325008 Active Baltazar Childers MD Active METFORMIN HCL 1000 MG ORAL TABLET Take one by mouth twice daily METFORMIN HCL 37511262962 Active Baltazar Childers MD Active TIZANIDINE HCL 4 MG ORAL TABLET 1 daily as needed for muscle spa sm TIZANIDINE HCL 4 MG ORAL TABLET 265075 TIZANIDINE HCL Inactive PHENTERMINE HCL 37.5 MG ORAL TABLET Take one by mouth daily PHENTERMINE HCL 37.5 MG ORAL TABLET 749842 PHENTERMINE HCL Inac tive CRESTOR 10 MG ORAL TABLET 1 by mouth every day CRESTOR 10 MG ORAL TABLET 749293 ROSUVASTATIN CALCIUM Inactive LIPITOR 20 MG ORAL TABLET Take one by mouth daily in evening LIPITOR 20 MG ORAL TABLET 148524 ATORVASTATIN CALCIUM Inactive DEPO-TESTOSTERONE 200 MG/ML INTRAMUSCULAR SOLUTION as directed DEPO-TESTOSTERONE 200 MG/ML INTRAMUSCULAR SOLUTION 6370527 RUFINO TOSTERONE CYPIONATE Inactive NAPROXEN 500 MG ORAL TABLET 1 tablet by mouth twice daily NAPROXEN 500 MG ORAL TABLET 464601 NAPROXEN Inactive GABAPENTIN 300 MG ORAL CAPSULE 1 po qd x 2 days, then 1 po BID x 2 days, then 1 po TID GABAPENTIN 300 MG ORAL CAPSULE 489369 GABAP ENTIN Inactive ONETOUCH ULTRA BLUE IN VITRO STRIP Test twice a day 07/11/11 ONETOUCH ULTRA BLUE IN VITRO STRIP GLUCOSE BLOOD Inact amie NAPROXEN SODIUM 220 MG ORAL TABLET 1 three times a day as needed NAPROXEN SODIUM 220 MG ORAL TABLET 58398635371 NAPROXEN SODI UM Inactive TOUJEO SOLOSTAR 300 UNIT/ML SUBCUTANEOUS SOLUTION PEN- INJECTOR 10 units SC daily TOUJEO SOLOSTAR 300 UNIT/ML SUBCUTANEOUS SOLUTION PEN-INJECTOR INSULIN GLARGINE Inactive SUCRALFATE 1 GM ORAL TABLET 1 four times a day to coat the stoma ch SUCRALFATE 1 GM ORAL TABLET 708874 SUCRALFATE Inac tive GABAPENTIN 300 MG ORAL CAPSULE 1 three times a day 201 12/03/26 GABAPENTIN 300 MG ORAL CAPSULE 594447 GABAPENTIN Inactive TRAMADOL HCL 50 MG ORAL TABLET 1 twice a day as needed for pain TRAMADOL HCL 50 MG ORAL TABLET 633250 TRAMADOL HCL I nactive ZITHROMAX Z-ISAIAS 250 MG ORAL TABLET Take two tablets to day and then 1 tablet daily for 4 days ZITHROMAX Z-ISAIAS 250 MG ORAL TAB LET 621486 AZITHROMYCIN Inactive Immunizations Vaccine Administration Date Value Standard Floyd cription influenza immunization (Flu Vax) has been administered 05/11 Done according to patient influenza virus vaccine, unspecified for mulation pneumococcal immunization administered Pneumovax 23 [CVX33] pneumococcal polysaccharide vaccine, 23 valent Seasonal influenza vaccine, injectable, containing preservative, for > 3 years old (Afluria, FluLaval, Fluzone, Fluvirin, Fluarix, Agriflu(>= 18 yo)) Fluzone (>3 yrs.) [YDR859] Influenza, seasonal, inject able Seasonal influenza vaccine, injectable, containing preservative, for > 3 years old (Afluria, FluLaval, Fluzone, Fluvirin, Fluarix, Agriflu(>= 18 yo)) Fluzone (>3 yrs.) [HOD756] Influenza, seasonal, inject able Vital Signs Date [...] - Chem istry sodium, serum 136 mmol/L 514-358 5807/06/04 potassium, serum 4.9 mmol/L 3.5-5.2 chloride, serum 97 mmol/L 98-107 carbon dioxide, venous blood 35.3 mmol/L 21.0-32 .0 blood glucose 239 mg/dL 65-95 calcium, serum 10.6 mg/dL 8.5-10.1 urea nitrogen, blood 31 mg/dL 7-18 creatinine, serum 2.33 mg/dL 0.60-1.30 Estimated Glomerular Filtration Rate (calc) 23 (?) mL/min/1.73m2 = OR > 60 mL/min sodium, serum 141 mmol/L 064-093 6821/07/09 potassium, serum 4.9 mmol/L 3.5-5.2 chloride, serum [...] C - Chemistry sodium, serum 137 mmol/L 530-636 7269/10/17 potassium, serum 4.9 mmol/L 3.5-5.2 chloride, serum [...] 0.40 mg/dL 0.00-1.00 cholesterol, serum 218 mg/dL 619-560 5421/12/18 triglyceride, serum, fasting 357 mg/dL 30-200 HDL cholesterol, serum 49 mg/dL 32-60 LDL cholesterol, serum 103.00 mg/dL 5.00-130.00 hemoglobin A1C, blood, as % of total hemoglobin 8.5 % 4.3-6.0 sodium, serum 142 mmol/L 432-296 4315/12/18 carbon dioxide, venous blood 32.5 mmol/L 21.0-32 [...] Ordered Encounters Code Encounter Date Provider Facility CPT-10862 [id number] Vst-Est Level V 14:28:39 CDT Aneudy Childers MD [facility] CPT-21674 [id number] Vst-Est Level IV 15:03:32 CDT Charlie Childers MD [facility] CPT-17992 33199-Zsz Vst-Est Level III 15:51:57 CDT Baltazar Childers MD [facility] CPT-43821 99498-Hhs Vst-Est Level IV 15:14:58 CDT Charlie Childers MD [facility] CPT-62136 98212-Dlo Vst-Est Level IV 15:12:52 BLACK TOP SPREADER MACHINE OPERATOR Charlie Childers MD [facility] CPT-55918 45967-Nql Vst-Est Level IV 15:30:55 BLACK TOP SPREADER MACHINE OPERATOR Charlie Childers MD [facility] CPT-91960 72226-Pyh Vst-Est Level IV 13:49:06 C DT Ann Martinez [facility] CPT-97160 Level 4 Est. Patient 17:26:08 CDT Ann trujillo [facility] CPT-74984 97607-Pep Vst-Est Level V 14:26:27 CDT Aneudy Childers MD [facility] CPT-49189 Level 4 Est. Patient 17:05:37 CDT Baltazar Childers MD [facility] CPT-29354 Level 4 Est. Patient 16:21:19 BLACK TOP SPREADER MACHINE OPERATOR Baltazar Childers MD [facility] CPT-60905 Level 4 Est. Patient 12:25:11 CDT Baltazar Childers MD [facility] CPT-68734 Level 4 Est. Patient 14:22:31 CDT Baltazar Childers MD [facility] CPT-80473 Level 4 Est. Patient 15:44:38 CDT Shonna Parker APRN [facility] CPT-09582 Level 4 Est. Patient 11:34:17 CDT Baltazar Childers MD [facility] CPT-38799 Level 3 Est. Patient 16:40:40 CDT Baltazar Childers MD [facility]-75362 Level 4 Est. Patient 10:41:24 CDT Baltazar Childers MD [facility]-90368 Level 4 Est. Patient 16:01:48 CDT Baltazar Childers MD [facility]-17646 Level 4 Est. Patient 16:54:07 BLACK TOP SPREADER MACHINE OPERATOR Baltazar Childers MD [facility]-44839 Level 4 Est. Patient 15:42:12 CDT Baltazar Childers MD [facility] CPT-06132 Level 4 Est. Patient 11:29:55 CDT Baltazar Childers MD [facility]-37486 Level 4 Est. Patient 14:15:19 CDT Baltazar Childers MD [facility]-75256 Level 4 Est. Patient 12:20:13 CDT Baltazar Childers MD [facility]-28717 Level 4 Est. Patient 14:52:45 BLACK TOP SPREADER MACHINE OPERATOR Baltazar Childers MD [facility]-20876 Level 4 Est. Patient 14:18:34 BLACK TOP SPREADER MACHINE OPERATOR Baltazar Childers MD [facility]-68639 Level 4 Est. Patient 15:18:29 CDT Baltazar Childers MD [facility]-35364 Level 3 Est. Patient 12:45:34 CDT Baltazar Chidlers MD [facility]-53363 Level 3 Est. Patient 10:10:11 CDT Baltazar Childers MD [facility]-50919 Level 3 Est. Patient 14:07:50 CDT Baltazar Childers MD [facility]-12726 Level 4 Est. Patient 12:26:10 BLACK TOP SPREADER MACHINE OPERATOR Baltazar Childers MD [facility]-00453 Level 4 Est. Patient 14:45:38 CDT Baltazar Childers MD [facility] CPT-15131 Level 4 New Patient 12:30:48 CDT Baltazar hinton MD [facility] Procedures Code Procedure Name Date Entry Date Standard Desc ription CPT-09397 Venipuncture Draw Fee 17:47:23 CDT CPT-94388 4M Drug Screen cup test, Multi-panel, urine 2018 14:28:39 CDT CPT-74695 Venipuncture Draw Fee 15:19:00 CDT CPT-000 Give Appropriate Flu Vaccine 12:25:14 CDT 2 CPT-88144 First Vx - Ix admin via ID I M or jet injects without counseling by physician 13:08:59 CDT CPT-48498 Fluzone Quadrivalent Intramuscular Suspe nsion 0.5 ML 13:08:59 CDT CPT-34271 Venipuncture Draw Fee 12:04:12 CDT CPT-87710 Lipid - LAB USE ONLY 17:39:15 BLACK TOP SPREADER MACHINE OPERATOR 9 CPT-82729 HGBA1C - LAB USE ONLY 17:39:15 BLACK TOP SPREADER MACHINE OPERATOR CPT-01447 CMP - LAB USE ONLY 17:39:14 BLACK TOP SPREADER MACHINE OPERATOR CPT-39088 Venipuncture Draw Fee 17:39:14 BLACK TOP SPREADER MACHINE OPERATOR CPT-29309 First Vx - Ix admin via ID I M or jet injects without counseling by physician 16:55:17 BLACK TOP SPREADER MACHINE OPERATOR CPT-49624 Fluzone Quadrivalent Intramuscular Suspe nsion 0.5 ML 16:55:17 BLACK TOP SPREADER MACHINE OPERATOR CPT-25179 Renal Panel - LAB USE ONLY 17:39:20 CDT 201 10/31/07 CPT-95861 CBC - LAB USE ONLY 17:39:20 CDT CPT-30886 Venipuncture Draw Fee 17:39:20 CDT CPT-96330 Venipuncture Draw Fee 14:33:30 CDT CPT-09659 Renal Panel - LAB USE ONLY 14:33:30 CDT 201 10/31/07 CPT-78422 CBC - LAB USE ONLY 14:33:29 CDT CPT-98909 Venipuncture Draw Fee 14:50:21 BLACK TOP SPREADER MACHINE OPERATOR CPT-83037 Immunization Single Admin 17:35:35 CDT 2014 CPT-00659 Fluzone Quadrivalent preservative free ( >=3yrs.) 17:35:35 CDT CPT-25372 Venipuncture Draw Fee 12:10:27 BLACK TOP SPREADER MACHINE OPERATOR CPT-75648 Fluzone Quadrivalent Intramuscular Suspe nsion 0.5 ML 10:49:13 CDT CPT-01393 First Vx Component - Ix admi n via ID IM or jet inj without physician counseling 15:17:19 BLACK TOP SPREADER MACHINE OPERATOR CPT-31064 Pneumovax 23 15:17:19 BLACK TOP SPREADER MACHINE OPERATOR CPT-38697 Pneumovax 14:52:45 BLACK TOP SPREADER MACHINE OPERATOR CPT-48899 Venipuncture Draw Fee 14:06:30 BLACK TOP SPREADER MACHINE OPERATOR CPT-000 Give Appropriate Flu Vaccine 14:18:34 BLACK TOP SPREADER MACHINE OPERATOR 2 CPT-02894 Administration single or combination vac cine inc oral 14:46:00 BLACK TOP SPREADER MACHINE OPERATOR CPT-03786 Influenza split virus > age 3 14:46:00 BLACK TOP SPREADER MACHINE OPERATOR CPT-OV Office Visit 19:13:16 CDT CPT-58230 Zostavax 18:41:56 CDT CPT-82502 Administration single or combination vac cine inc oral 12:56:39 CDT CPT-75022 Zoster Vaccine (Zostavax) 12:56:39 CDT 2012 CPT-23751 Venipuncture Draw Fee 10:58:57 CDT CPT-77341 Sono pelvis non OB uterus ovaries cervix 17:45:04 CDT CPT-68531 Sono retroperitoneal complete kidneys an d bladder 17:14:36 CDT CPT-OV Office Visit 14:59:38 BLACK TOP SPREADER MACHINE OPERATOR CPT-J1070 Depo Testosterone 100 mg 14:50:13 CDT 03/05 CPT-63374 Abx/Therapy Injection 14:50:13 CDT CPT-20905 Administration single or combination vac cine inc oral 14:34:43 CDT CPT-50957 Influenza split virus > age 3 14:34:43 CDT CPT-J1070 Depo Testosterone 100 mg 17:37:13 CDT 01/11 CPT-84855 Abx/Therapy Injection 17:37:13 CDT CPT-90600 Venipuncture Draw Fee 16:30:13 CDT CPT-29116 Venipuncture Draw Fee 16:29:43 CDT CPT-J1070 Depo Testosterone 100 mg 14:45:38 CDT 01/11
--- OUTSIDE RECORDS SUMMARY | 2019-10-27 12:11 | XMS REPORT | Clinical Summary ---
Author Author Admin, Elba Lance [facility] Address Unknown Phone Unavailable Allergies, Adverse Reactions, [...] Morbid obesity due to excess calories 278.01 [facility] t Baltazar Childers MD Morbid obesity Obesity Class II (BMI 35-39.9) 278.01 Refinement 10/26 Baltazar Childers MD Morbid obesity Morbid obesity due to excess calories 278.01 [facility] t Baltazar Childers MD Morbid obesity Obesity [...] ronary atherosclerosis of unspecified type of vessel, [place] or graft OTH NONSPC ABN FINDNG RAD&OTH [...] Instructions Start Date Stop Date Generic Name [facility] Status Provider Patient Instruction GLIPIZIDE 10MG TABLETS TAKE 2 TABLETS BY MOUTH TWICE DAILY GLIPIZIDE 06445457860 Active KENDALL Juarez Active TRUE METRIX B/G TEST STRIPS 25'S TEST BLOOD SUGAR TWICE DAILY 03/02 GLUCOSE BLOOD 76648661048 Active KENDALL Juarez Active ONGLYZA 2.5MG TABLETS TAKE 1 TABLET BY MOUTH DAILY FOR DIABETES 201 02/01/09 SAXAGLIPTIN HCL 05189865567 Active KENDALL Juarez Active LEVOTHYROXINE 0.112MG (112MCG) TABS TAKE 1 TABLET BY MOUTH EVERY DAY LEVOTHYROXINE SODIUM 71942555216 Active KENDALL Juarez Active AMLODIPINE BESYLATE 5MG TABLETS TAKE 1 TABLET BY MOUTH EVERY DAY FOR HYPERTENSION AMLODIPINE BESYLATE 92505158097 Active KENDALL Acosta Active LANTUS SOLOSTAR 100 UNIT/ML SUBCUTANEOUS SOLUTION PEN- INJECTOR 20 units am and 13 units at night INSULIN GLARGINE 41311691199 Active Baltazar Childers MD Active TRAMADOL HCL 50 MG ORAL TABLET 1 twice a day as needed for pain TRAMADOL HCL 76517330521 No Longer Active Baltazar Childers MD Active ROBAXIN 500 MG ORAL TABLET Take 1.5 (one and one half) tabs once daily METHOCARBAMOL 91043345922 Active Baltazar Childers MD Active TRUE METRIX AIR GLUCOSE METER DEVICE Use as directed BLOOD GLUCOSE MONITORING SUPPL 72453586375 Active Baltazar Childers MD Activ e NORTRIPTYLINE HCL 50 MG ORAL CAPSULE 1 twice a day for neuropathy 2 NORTRIPTYLINE HCL 54945703876 Active Baltazar Childers MD Acti ve ASPIRIN 81 MG TBEC Take one (1) tablet by mouth daily ASPIRIN 99234748157 Active Baltazar Childers MD Active GABAPENTIN 300 MG ORAL CAPSULE 1 three times a day 201 12/03/26 GABAPENTIN 95503355673 No Longer Active Baltazar Childers MD Activ e LISINOPRIL 20 MG ORAL TABLET 1 tablet by mouth daily at night 2016 LISINOPRIL 06555409647 Active Baltazar Childers MD Active ZITHROMAX Z-ISAIAS 250 MG ORAL TABLET Take two tablets to day and then 1 tablet daily for 4 days AZITHROMYCIN 48075126900 No Longer A ctive Baltazar Childers MD Active SUCRALFATE 1 GM ORAL TABLET 1 four times a day to coat the stoma ch SUCRALFATE 74403648288 No Longer Active Baltazar Childers MD Active PEN NEEDLES 31G X 6 MM use 1 daily INSULIN PEN NE EDLE 55702542485 Active KENDALL Juarez Active TOUJEO SOLOSTAR 300 UNIT/ML SUBCUTANEOUS SOLUTION PEN- INJECTOR 10 units SC daily INSULIN GLARGINE 58702242967 No Longer Active Rola ARGUETA Active NAPROXEN SODIUM 220 MG ORAL TABLET 1 three times a day as needed NAPROXEN SODIUM 51023078651 No Longer Active Baltazar Childers MD Active ATORVASTATIN CALCIUM 20 MG ORAL TABLET Take 1 tab daily ATORVASTATIN CALCIUM 16242689296 Active Baltazar Childers MD A ctive FUROSEMIDE 40 MG ORAL TABLET Take one by mouth daily FUROSEMIDE 54448151164 Active Baltazar Childers MD Active LISINOPRIL 20 MG ORAL TABLET Take one by mouth daily at bedtime LISINOPRIL 03423512089 No Longer Active Baltazar Childers MD Active ONETOUCH ULTRA BLUE IN VITRO STRIP Test twice a day 07/11/11 GLUCOSE BLOOD 69949482527 No Longer Active Baltazar Childers MD Acti ve TRUEPLUS LANCETS 33G Test twice a day LANCETS 3603460 6218 Active KENDALL Juarez Active TRUEDRAW LANCING DEVICE Test twice a day LANCET DEVICES 62027508964 Active Baltazar Childers MD Active TRUETRACK BLOOD GLUCOSE w/Device KIT Test twice a day BLOOD GLUCOSE MONITORING SUPPL 72562670057 Active Baltazar Childers MD Activ e HYDROCODONE-ACETAMINOPHEN 7.5-325 MG ORAL TABLET Take 1 tab every 6-8 hours PRN HYDROCODONE-ACETAMINOPHEN 77479250533 Active Baltazar Nickerson MD Active GABAPENTIN 300 MG ORAL CAPSULE 1 po qd x 2 days, then 1 po BID x 2 days, then 1 po TID GABAPENTIN 99573944162 No Longer Active Baltazar Childers MD Active NAPROXEN 500 MG ORAL TABLET 1 tablet by mouth twice daily NAPROXEN 36865354562 No Longer Active Baltazar Childers MD Active PROAIR HFA 108 (90 Base) MCG/ACT INHALATION AEROSOL SO LUTION 2 puffs four times a day as needed ALBUTEROL SULFATE 31457017764 Active Shun Arellano LPN Active DEPO-TESTOSTERONE 200 MG/ML INTRAMUSCULAR SOLUTION as directed TESTOSTERONE CYPIONATE 71806444328 No Longer Active Baltazar Childers MD Active LIPITOR 20 MG ORAL TABLET Take one by mouth daily in evening ATORVASTATIN CALCIUM 67418503401 No Longer Active Baltazar Childers MD Active CRESTOR 10 MG ORAL TABLET 1 by mouth every day ROSUVASTATIN CALCIUM 12495732663 No Longer Active Baltazar Childers MD Active PHENTERMINE HCL 37.5 MG ORAL TABLET Take one by mouth daily PHENTERMINE HCL 71016362023 No Longer Active Baltazar Childers MD Ac tive TIZANIDINE HCL 4 MG ORAL TABLET 1 daily as needed for muscle spa sm TIZANIDINE HCL 57949436118 No Longer Active Dawna Salazar RN Active [id number] 50-325-40 MG ORAL TABLET 1 fo ur times a day as needed for heacache [id number] 08416544005 Active KENDALL Juarez Active SUMATRIPTAN SUCCINATE 100 MG ORAL TABLET 1 tablet by m outh at onset of migraine as needed SUMATRIPTAN SUCCINATE 33960920966 Active Baltazar Nickerson MD Active LORATADINE 10 MG ORAL TABLET Take one by mouth daily LORATADINE 59477330023 Active Baltazar Childers MD Active OMEPRAZOLE 20 MG ORAL CAPSULE DELAYED RELEASE Take one by mouth jostin ly OMEPRAZOLE 31193218059 Active Baltazar Childers MD Active HYDROXYZINE HCL 25 MG ORAL TABLET Take one by mouth daily HYDROXYZINE HCL 61550742858 Active Baltazar Childers MD Active ALPRAZOLAM 1 MG ORAL TABLET 1 [facility] 03188063248 Active Baltazar Childers MD Active METFORMIN HCL 1000 MG ORAL TABLET Take one by mouth twice daily METFORMIN HCL 18671448611 Active Baltazar Childers MD Active TIZANIDINE HCL 4 MG ORAL TABLET 1 daily as needed for muscle spa sm TIZANIDINE HCL 4 MG ORAL TABLET 455923 TIZANIDINE HCL Inactive PHENTERMINE HCL 37.5 MG ORAL TABLET Take one by mouth daily PHENTERMINE HCL 37.5 MG ORAL TABLET 923186 PHENTERMINE HCL Inac tive CRESTOR 10 MG ORAL TABLET 1 by mouth every day CRESTOR 10 MG ORAL TABLET 982851 ROSUVASTATIN CALCIUM Inactive LIPITOR 20 MG ORAL TABLET Take one by mouth daily in evening LIPITOR 20 MG ORAL TABLET 152020 ATORVASTATIN CALCIUM Inactive DEPO-TESTOSTERONE 200 MG/ML INTRAMUSCULAR SOLUTION as directed DEPO-TESTOSTERONE 200 MG/ML INTRAMUSCULAR SOLUTION 8138237 RUFINO TOSTERONE CYPIONATE Inactive NAPROXEN 500 MG ORAL TABLET 1 tablet by mouth twice daily NAPROXEN 500 MG ORAL TABLET 799458 NAPROXEN Inactive GABAPENTIN 300 MG ORAL CAPSULE 1 po qd x 2 days, then 1 po BID x 2 days, then 1 po TID GABAPENTIN 300 MG ORAL CAPSULE 552968 GABAP ENTIN Inactive ONETOUCH ULTRA BLUE IN VITRO STRIP Test twice a day 07/11/11 ONETOUCH ULTRA BLUE IN VITRO STRIP GLUCOSE BLOOD Inact amie NAPROXEN SODIUM 220 MG ORAL TABLET 1 three times a day as needed NAPROXEN SODIUM 220 MG ORAL TABLET 36469369120 NAPROXEN SODI UM Inactive TOUJEO SOLOSTAR 300 UNIT/ML SUBCUTANEOUS SOLUTION PEN- INJECTOR 10 units SC daily TOUJEO SOLOSTAR 300 UNIT/ML SUBCUTANEOUS SOLUTION PEN-INJECTOR INSULIN GLARGINE Inactive SUCRALFATE 1 GM ORAL TABLET 1 four times a day to coat the stoma ch SUCRALFATE 1 GM ORAL TABLET 169404 SUCRALFATE Inac tive GABAPENTIN 300 MG ORAL CAPSULE 1 three times a day 201 12/03/26 GABAPENTIN 300 MG ORAL CAPSULE 026491 GABAPENTIN Inactive TRAMADOL HCL 50 MG ORAL TABLET 1 twice a day as needed for pain TRAMADOL HCL 50 MG ORAL TABLET 636928 TRAMADOL HCL I nactive ZITHROMAX Z-ISAIAS 250 MG ORAL TABLET Take two tablets to day and then 1 tablet daily for 4 days ZITHROMAX Z-ISAIAS 250 MG ORAL TAB LET 956559 AZITHROMYCIN Inactive Immunizations Vaccine Administration Date Value Standard Floyd cription influenza immunization (Flu Vax) has been administered 05/11 Done according to patient influenza virus vaccine, unspecified for mulation pneumococcal immunization administered Pneumovax 23 [CVX33] pneumococcal polysaccharide vaccine, 23 valent Seasonal influenza vaccine, injectable, containing preservative, for > 3 years old (Afluria, FluLaval, Fluzone, Fluvirin, Fluarix, Agriflu(>= 18 yo)) Fluzone (>3 yrs.) [UXE083] Influenza, seasonal, inject able Seasonal influenza vaccine, injectable, containing preservative, for > 3 years old (Afluria, FluLaval, Fluzone, Fluvirin, Fluarix, Agriflu(>= 18 yo)) Fluzone (>3 yrs.) [UQX038] Influenza, seasonal, inject able Vital Signs Date [...] - Chem istry sodium, serum 136 mmol/L 865-830 5762/06/04 potassium, serum 4.9 mmol/L 3.5-5.2 chloride, serum 97 mmol/L 98-107 carbon dioxide, venous blood 35.3 mmol/L 21.0-32 .0 blood glucose 239 mg/dL 65-95 calcium, serum 10.6 mg/dL 8.5-10.1 urea nitrogen, blood 31 mg/dL 7-18 creatinine, serum 2.33 mg/dL 0.60-1.30 Estimated Glomerular Filtration Rate (calc) 23 (?) mL/min/1.73m2 = OR > 60 mL/min sodium, serum 141 mmol/L 812-541 3854/07/09 potassium, serum 4.9 mmol/L 3.5-5.2 chloride, serum [...] C - Chemistry sodium, serum 137 mmol/L 557-548 3770/10/17 potassium, serum 4.9 mmol/L 3.5-5.2 chloride, serum [...] 0.40 mg/dL 0.00-1.00 cholesterol, serum 218 mg/dL 378-210 3496/12/18 triglyceride, serum, fasting 357 mg/dL 30-200 HDL cholesterol, serum 49 mg/dL 32-60 LDL cholesterol, serum 103.00 mg/dL 5.00-130.00 hemoglobin A1C, blood, as % of total hemoglobin 8.5 % 4.3-6.0 sodium, serum 142 mmol/L 000-097 2492/12/18 carbon dioxide, venous blood 32.5 mmol/L 21.0-32 [...] Ordered Encounters Code Encounter Date Provider Facility CPT-26309 [id number] Vst-Est Level V 14:28:39 CDT Aneudy Childers MD [facility] CPT-57108 [id number] Vst-Est Level IV 15:03:32 CDT Charlie Childers MD [facility] CPT-26103 21939-Cew Vst-Est Level III 15:51:57 CDT Baltazar Childers MD [facility] CPT-80116 10459-Mgm Vst-Est Level IV 15:14:58 CDT Charlie Childers MD [facility] CPT-99050 48522-Rzq Vst-Est Level IV 15:12:52 [employer] Charlie Childers MD [facility] CPT-27991 74841-Kaz Vst-Est Level IV 15:30:55 [employer] Charlie Childers MD [facility] CPT-92722 74550-Mzn Vst-Est Level IV 13:49:06 C DT Ann Martinez [facility] CPT-81178 Level 4 Est. Patient 17:26:08 CDT Ann trujillo [facility] CPT-33650 36654-Lxm Vst-Est Level V 14:26:27 CDT Aneudy Childers MD [facility] CPT-28503 Level 4 Est. Patient 17:05:37 CDT Baltazar Childers MD [facility] CPT-03643 Level 4 Est. Patient 16:21:19 [employer] Baltazar Childers MD [facility] CPT-80236 Level 4 Est. Patient 12:25:11 CDT Baltazar Childers MD [facility] CPT-80904 Level 4 Est. Patient 14:22:31 CDT Baltazar Childers MD [facility] CPT-15262 Level 4 Est. Patient 15:44:38 CDT Shonna Parker APRN [facility] CPT-93293 Level 4 Est. Patient 11:34:17 CDT Baltazar Childers MD [facility] CPT-42912 Level 3 Est. Patient 16:40:40 CDT Baltazar Childers MD [facility]-76654 Level 4 Est. Patient 10:41:24 CDT Baltazar Childers MD [facility]-00491 Level 4 Est. Patient 16:01:48 CDT Baltazar Childers MD [facility]-38741 Level 4 Est. Patient 16:54:07 [employer] Baltazar Childers MD [facility]-21213 Level 4 Est. Patient 15:42:12 CDT Baltazar Childers MD [facility] CPT-08340 Level 4 Est. Patient 11:29:55 CDT Baltazar Childers MD [facility]-86779 Level 4 Est. Patient 14:15:19 CDT Baltazar Childers MD [facility]-56543 Level 4 Est. Patient 12:20:13 CDT Baltazar Childers MD [facility]-07392 Level 4 Est. Patient 14:52:45 [employer] Baltazar Childers MD [facility]-27974 Level 4 Est. Patient 14:18:34 [employer] Baltazar Childers MD [facility]-62824 Level 4 Est. Patient 15:18:29 CDT Baltazar Childers MD [facility]-32010 Level 3 Est. Patient 12:45:34 CDT Baltazar Childers MD [facility]-60664 Level 3 Est. Patient 10:10:11 CDT Baltazar Childers MD [facility]-64070 Level 3 Est. Patient 14:07:50 CDT Baltazar Childers MD [facility]-79036 Level 4 Est. Patient 12:26:10 [employer]AM[employer] Baltazar Childers MD [facility]-47472 Level 4 Est. Patient 14:45:38 CDT Baltazar Childers MD [facility] CPT-26632 Level 4 New Patient 12:30:48 CDT Baltazar hinton MD [facility] Procedures Code Procedure Name Date Entry Date Standard Desc ription CPT-28231 Venipuncture Draw Fee 17:47:23 CDT CPT-48968 4M Drug Screen cup test, Multi-panel, urine 2018 14:28:39 CDT CPT-88756 Venipuncture Draw Fee 15:19:00 CDT CPT-000 Give Appropriate Flu Vaccine 12:25:14 CDT 2 CPT-51973 First Vx - Ix admin via ID I M or jet injects without counseling by physician 13:08:59 CDT CPT-12827 Fluzone Quadrivalent Intramuscular Suspe nsion 0.5 ML 13:08:59 CDT CPT-66398 Venipuncture Draw Fee 12:04:12 CDT CPT-98308 Lipid - LAB USE ONLY 17:39:15 CARTON STAMPER 9 CPT-07903 HGBA1C - LAB USE ONLY 17:39:15 [employer] STAM[employer] CPT-11494 CMP - LAB USE ONLY 17:39:14 [employer] ST[employer] CPT-93739 Venipuncture Draw Fee 17:39:14 C[employer]ON STAM[employer] CPT-20698 First Vx - Ix admin via ID I M or jet injects without counseling by physician 16:55:17 C[employer] STAM[employer] CPT-76381 Fluzone Quadrivalent Intramuscular Suspe nsion 0.5 ML 16:55:17 C[employer]ON STAM[employer] CPT-59319 Renal Panel - LAB USE ONLY 17:39:20 CDT 201 10/31/07 CPT-36807 CBC - LAB USE ONLY 17:39:20 CDT CPT-96835 Venipuncture Draw Fee 17:39:20 CDT CPT-75993 Venipuncture Draw Fee 14:33:30 CDT CPT-53894 Renal Panel - LAB USE ONLY 14:33:30 CDT 201 10/31/07 CPT-23771 CBC - LAB USE ONLY 14:33:29 CDT CPT-99120 Venipuncture Draw Fee 14:50:21 [employer] STAM[employer] CPT-27484 Immunization Single Admin 17:35:35 CDT 2014 CPT-91745 Fluzone Quadrivalent preservative free ( >=3yrs.) 17:35:35 CDT CPT-02304 Venipuncture Draw Fee 12:10:27 [employer] STAM[employer] CPT-40808 Fluzone Quadrivalent Intramuscular Suspe nsion 0.5 ML 10:49:13 CDT CPT-06791 First Vx Component - Ix admi n via ID IM or jet inj without physician counseling 15:17:19 [employer]ON STAM[employer] CPT-03158 Pneumovax 23 15:17:19 CARTON STAMPER CPT-51816 Pneumovax 14:52:45 [employer] STAMPER CPT-92401 Venipuncture Draw Fee 14:06:30 C[employer] STAMPER CPT-000 Give Appropriate Flu Vaccine 14:18:34 CARTON STAMPER 2 CPT-79777 Administration single or combination vac cine inc oral 14:46:00 [employer] STAM[employer] CPT-44506 Influenza split virus > age 3 14:46:00 C[employer]ON STAMPER CPT-OV Office Visit 19:13:16 CDT CPT-70152 Zostavax 18:41:56 CDT CPT-45912 Administration single or combination vac cine inc oral 12:56:39 CDT CPT-57779 Zoster Vaccine (Zostavax) 12:56:39 CDT 2012 CPT-95237 Venipuncture Draw Fee 10:58:57 CDT CPT-01242 Sono pelvis non OB uterus ovaries cervix 17:45:04 CDT CPT-82952 Sono retroperitoneal complete kidneys an d bladder 17:14:36 CDT CPT-OV Office Visit 14:59:38 [employer] STAM[employer] CPT-J1070 Depo Testosterone 100 mg 14:50:13 CDT 03/05 CPT-36016 Abx/Therapy Injection 14:50:13 CDT CPT-90266 Administration single or combination vac cine inc oral 14:34:43 CDT CPT-98772 Influenza split virus > age 3 14:34:43 CDT CPT-J1070 Depo Testosterone 100 mg 17:37:13 CDT 01/11 CPT-86241 Abx/Therapy Injection 17:37:13 CDT CPT-49839 Venipuncture Draw Fee 16:30:13 CDT CPT-07100 Venipuncture Draw Fee 16:29:43 CDT CPT-J1070 Depo Testosterone 100 mg 14:45:38 CDT 01/11
--- OUTSIDE RECORDS SUMMARY | 2019-10-27 12:12 | XMS REPORT | Clinical Summary ---
Author Author Admin, Elba Lance [facility] Address Unknown Phone Unavailable Allergies, Adverse [...] Morbid obesity due to excess calories 278.01 [facility] t Baltazar Childers MD Morbid obesity Obesity Class II (BMI 35-39.9) 278.01 Refinement 10/26 Baltazar Childers MD Morbid obesity Morbid obesity due to excess calories 278.01 [facility] t Baltazar Childers MD Morbid [...] ronary atherosclerosis of unspecified type of vessel, skull valley or graft OTH NONSPC ABN FINDNG [...] Instructions Start Date Stop Date Generic Name [facility] Status Provider Patient Instruction GLIPIZIDE 10MG TABLETS TAKE 2 TABLETS BY MOUTH TWICE DAILY GLIPIZIDE 33216827035 Active KENDALL Juarez Active TRUE METRIX B/G TEST STRIPS 25'S TEST BLOOD SUGAR TWICE DAILY 03/02 GLUCOSE BLOOD 09491809534 Active KENDALL Juarez Active ONGLYZA 2.5MG TABLETS TAKE 1 TABLET BY MOUTH DAILY FOR DIABETES 201 02/01/09 SAXAGLIPTIN HCL 59103244419 Active KENDALL Juarez Active LEVOTHYROXINE 0.112MG (112MCG) TABS TAKE 1 TABLET BY MOUTH EVERY DAY LEVOTHYROXINE SODIUM 10560525497 Active KENDALL Juarez Active AMLODIPINE BESYLATE 5MG TABLETS TAKE 1 TABLET BY MOUTH EVERY DAY FOR HYPERTENSION AMLODIPINE BESYLATE 89183214910 Active KENDALL Acosta Active LANTUS SOLOSTAR 100 UNIT/ML SUBCUTANEOUS SOLUTION PEN- INJECTOR 20 units am and 13 units at night INSULIN GLARGINE 02079192172 Active Baltazar Childers MD Active TRAMADOL HCL 50 MG ORAL TABLET 1 twice a day as needed for pain TRAMADOL HCL 33470979292 No Longer Active Baltazar Childers MD Active ROBAXIN 500 MG ORAL TABLET Take 1.5 (one and one half) tabs once daily METHOCARBAMOL 47881673242 Active Baltazar Childers MD Active TRUE METRIX AIR GLUCOSE METER DEVICE Use as directed BLOOD GLUCOSE MONITORING SUPPL 00885886130 Active Baltazar Childers MD Activ e NORTRIPTYLINE HCL 50 MG ORAL CAPSULE 1 twice a day for neuropathy 2 NORTRIPTYLINE HCL 89880605441 Active Baltazar Childers MD Acti ve ASPIRIN 81 MG TBEC Take one (1) tablet by mouth daily ASPIRIN 81584890746 Active Baltazar Childers MD Active GABAPENTIN 300 MG ORAL CAPSULE 1 three times a day 201 12/03/26 GABAPENTIN 80243015741 No Longer Active Baltazar Childers MD Activ e LISINOPRIL 20 MG ORAL TABLET 1 tablet by mouth daily at night 2016 LISINOPRIL 39589004078 Active Baltazar Childers MD Active ZITHROMAX Z-ISAIAS 250 MG ORAL TABLET Take two tablets to day and then 1 tablet daily for 4 days AZITHROMYCIN 53434347554 No Longer A ctive Baltazar Childers MD Active SUCRALFATE 1 GM ORAL TABLET 1 four times a day to coat the stoma ch SUCRALFATE 81598261506 No Longer Active Baltazar Childers MD Active PEN NEEDLES 31G X 6 MM use 1 daily INSULIN PEN NE EDLE 70819646064 Active KENDALL Juarez Active TOUJEO SOLOSTAR 300 UNIT/ML SUBCUTANEOUS SOLUTION PEN- INJECTOR 10 units SC daily INSULIN GLARGINE 22764232567 No Longer Active Rola ARGUETA Active NAPROXEN SODIUM 220 MG ORAL TABLET 1 three times a day as needed NAPROXEN SODIUM 78229780599 No Longer Active Baltazar Childers MD Active ATORVASTATIN CALCIUM 20 MG ORAL TABLET Take 1 tab daily ATORVASTATIN CALCIUM 87844450267 Active Baltazar Childers MD A ctive FUROSEMIDE 40 MG ORAL TABLET Take one by mouth daily FUROSEMIDE 63908074694 Active Baltazar Childers MD Active LISINOPRIL 20 MG ORAL TABLET Take one by mouth daily at bedtime LISINOPRIL 35816985731 No Longer Active Baltazar Childers MD Active ONETOUCH ULTRA BLUE IN VITRO STRIP Test twice a day 07/11/11 GLUCOSE BLOOD 44724721845 No Longer Active Baltazar Childers MD Acti ve TRUEPLUS LANCETS 33G Test twice a day LANCETS 9875736 6109 Active KENDALL Juarez Active TRUEDRAW LANCING DEVICE Test twice a day LANCET DEVICES 69021118257 Active Baltazar Childers MD Active TRUETRACK BLOOD GLUCOSE w/Device KIT Test twice a day BLOOD GLUCOSE MONITORING SUPPL 12836860000 Active Baltazar Childers MD Activ e HYDROCODONE-ACETAMINOPHEN 7.5-325 MG ORAL TABLET Take 1 tab every 6-8 hours PRN HYDROCODONE-ACETAMINOPHEN 47878681447 Active Baltazar Nickerson MD Active GABAPENTIN 300 MG ORAL CAPSULE 1 po qd x 2 days, then 1 po BID x 2 days, then 1 po TID GABAPENTIN 13830161302 No Longer Active Baltazar Childers MD Active NAPROXEN 500 MG ORAL TABLET 1 tablet by mouth twice daily NAPROXEN 08395206242 No Longer Active Baltazar Childers MD Active PROAIR HFA 108 (90 Base) MCG/ACT INHALATION AEROSOL SO LUTION 2 puffs four times a day as needed ALBUTEROL SULFATE 10390989734 Active Shun Arellano LPN Active DEPO-TESTOSTERONE 200 MG/ML INTRAMUSCULAR SOLUTION as directed TESTOSTERONE CYPIONATE 31081316083 No Longer Active Baltazar Childers MD Active LIPITOR 20 MG ORAL TABLET Take one by mouth daily in evening ATORVASTATIN CALCIUM 04054182986 No Longer Active Baltazar Childers MD Active CRESTOR 10 MG ORAL TABLET 1 by mouth every day ROSUVASTATIN CALCIUM 47957893675 No Longer Active Baltazar Childers MD Active PHENTERMINE HCL 37.5 MG ORAL TABLET Take one by mouth daily PHENTERMINE HCL 51796703164 No Longer Active Baltazar Childers MD Ac tive TIZANIDINE HCL 4 MG ORAL TABLET 1 daily as needed for muscle spa sm TIZANIDINE HCL 15376125646 No Longer Active Dawna Salazar RN Active [id number] 50-325-40 MG ORAL TABLET 1 fo ur times a day as needed for heacache [id number] 21125053458 Active KENDALL Juarez Active SUMATRIPTAN SUCCINATE 100 MG ORAL TABLET 1 tablet by m outh at onset of migraine as needed SUMATRIPTAN SUCCINATE 99297967332 Active Baltazar Nickerson MD Active LORATADINE 10 MG ORAL TABLET Take one by mouth daily LORATADINE 84032684160 Active Baltazar Childers MD Active OMEPRAZOLE 20 MG ORAL CAPSULE DELAYED RELEASE Take one by mouth jostin ly OMEPRAZOLE 56092981425 Active Baltazar Childers MD Active HYDROXYZINE HCL 25 MG ORAL TABLET Take one by mouth daily HYDROXYZINE HCL 46690963455 Active Baltazar Childers MD Active ALPRAZOLAM 1 MG ORAL TABLET 1 tablet [facility] ALPR[facility]OL[facility] 61682048934 Active Baltazar Childers MD Active METFORMIN HCL 1000 MG ORAL TABLET Take one by mouth twice daily METFORMIN HCL 26107311484 Active Baltazar Childers MD Active TIZANIDINE HCL 4 MG ORAL TABLET 1 daily as needed for muscle spa sm TIZANIDINE HCL 4 MG ORAL TABLET 728404 TIZANIDINE HCL Inactive PHENTERMINE HCL 37.5 MG ORAL TABLET Take one by mouth daily PHENTERMINE HCL 37.5 MG ORAL TABLET 892365 PHENTERMINE HCL Inac tive CRESTOR 10 MG ORAL TABLET 1 by mouth every day CRESTOR 10 MG ORAL TABLET 094994 ROSUVASTATIN CALCIUM Inactive LIPITOR 20 MG ORAL TABLET Take one by mouth daily in evening LIPITOR 20 MG ORAL TABLET 265879 ATORVASTATIN CALCIUM Inactive DEPO-TESTOSTERONE 200 MG/ML INTRAMUSCULAR SOLUTION as directed DEPO-TESTOSTERONE 200 MG/ML INTRAMUSCULAR SOLUTION 9547879 RUFINO TOSTERONE CYPIONATE Inactive NAPROXEN 500 MG ORAL TABLET 1 tablet by mouth twice daily NAPROXEN 500 MG ORAL TABLET 805841 NAPROXEN Inactive GABAPENTIN 300 MG ORAL CAPSULE 1 po qd x 2 days, then 1 po BID x 2 days, then 1 po TID GABAPENTIN 300 MG ORAL CAPSULE 927067 GABAP ENTIN Inactive ONETOUCH ULTRA BLUE IN VITRO STRIP Test twice a day 07/11/11 ONETOUCH ULTRA BLUE IN VITRO STRIP GLUCOSE BLOOD Inact amie NAPROXEN SODIUM 220 MG ORAL TABLET 1 three times a day as needed NAPROXEN SODIUM 220 MG ORAL TABLET 82061498883 NAPROXEN SODI UM Inactive TOUJEO SOLOSTAR 300 UNIT/ML SUBCUTANEOUS SOLUTION PEN- INJECTOR 10 units SC daily TOUJEO SOLOSTAR 300 UNIT/ML SUBCUTANEOUS SOLUTION PEN-INJECTOR INSULIN GLARGINE Inactive SUCRALFATE 1 GM ORAL TABLET 1 four times a day to coat the stoma ch SUCRALFATE 1 GM ORAL TABLET 422530 SUCRALFATE Inac tive GABAPENTIN 300 MG ORAL CAPSULE 1 three times a day 201 12/03/26 GABAPENTIN 300 MG ORAL CAPSULE 192573 GABAPENTIN Inactive TRAMADOL HCL 50 MG ORAL TABLET 1 twice a day as needed for pain TRAMADOL HCL 50 MG ORAL TABLET 189422 TRAMADOL HCL I nactive ZITHROMAX Z-ISAIAS 250 MG ORAL TABLET Take two tablets to day and then 1 tablet daily for 4 days ZITHROMAX Z-ISAIAS 250 MG ORAL TAB LET 094804 AZITHROMYCIN Inactive Immunizations Vaccine Administration Date Value Standard Floyd cription influenza immunization (Flu Vax) has been administered 05/11 Done according to patient influenza virus vaccine, unspecified for mulation pneumococcal immunization administered Pneumovax 23 [CVX33] pneumococcal polysaccharide vaccine, 23 valent Seasonal influenza vaccine, injectable, containing preservative, for > 3 years old (Afluria, FluLaval, Fluzone, Fluvirin, Fluarix, Agriflu(>= 18 yo)) Fluzone (>3 yrs.) [DOJ266] Influenza, seasonal, inject able Seasonal influenza vaccine, injectable, containing preservative, for > 3 years old (Afluria, FluLaval, Fluzone, Fluvirin, Fluarix, Agriflu(>= 18 yo)) Fluzone (>3 yrs.) [MRJ002] Influenza, seasonal, inject able Vital Signs Date [...] - Chem istry sodium, serum 136 mmol/L 614-586 9884/06/04 potassium, serum 4.9 mmol/L 3.5-5.2 chloride, serum 97 mmol/L 98-107 carbon dioxide, venous blood 35.3 mmol/L 21.0-32 .0 blood glucose 239 mg/dL 65-95 calcium, serum 10.6 mg/dL 8.5-10.1 urea nitrogen, blood 31 mg/dL 7-18 creatinine, serum 2.33 mg/dL 0.60-1.30 Estimated Glomerular Filtration Rate (calc) 23 (?) mL/min/1.73m2 = OR > 60 mL/min sodium, serum 141 mmol/L 739-066 8293/07/09 potassium, serum 4.9 mmol/L 3.5-5.2 chloride, serum [...] 0.40 mg/dL 0.00-1.00 cholesterol, serum 218 mg/dL 655-368 7107/12/18 triglyceride, serum, fasting 357 mg/dL 30-200 HDL cholesterol, serum 49 mg/dL 32-60 LDL cholesterol, serum 103.00 mg/dL 5.00-130.00 hemoglobin A1C, blood, as % of total hemoglobin 8.5 % 4.3-6.0 sodium, serum 142 mmol/L 247-693 0954/12/18 carbon dioxide, venous blood 32.5 mmol/L 21.0-32 [...] Ordered Encounters Code Encounter Date Provider Facility CPT-78119 [id number] Vst-Est Level V 14:28:39 CDT Aneudy Childers MD [facility] CPT-26583 77364-Qab Vst-Est Level IV 15:03:32 CDT Charlie Childers MD [facility] CPT-04723 69662-Vbv Vst-Est Level III 15:51:57 CDT Baltazar Childers MD [facility] CPT-69700 93224-Xst Vst-Est Level IV 15:14:58 CDT Charlie Childers MD [facility] CPT-56921 55681-Lto Vst-Est Level IV 15:12:52 FABRIC CUTTER Charlie Childers MD [facility] CPT-25686 14969-Agh Vst-Est Level IV 15:30:55 FABRIC CUTTER Charlie Childers MD [facility] CPT-14180 53711-Diy Vst-Est Level IV 13:49:06 C DT Ann Michelle [facility]-53043 Level 4 Est. Patient 17:26:08 CDT Ann trujillo [facility]-50449 02119-Ywg Vst-Est Level V 14:26:27 CDT Aneudy Childers MD [facility] CPT-87843 Level 4 Est. Patient 17:05:37 CDT Baltazar Childers MD [facility]-63134 Level 4 Est. Patient 16:21:19 FABRIC CUTTER Baltazar Childers MD [facility]-42270 Level 4 Est. Patient 12:25:11 CDT Baltazar Childers MD [facility]-53752 Level 4 Est. Patient 14:22:31 CDT Baltazar Childers MD [facility]-84029 Level 4 Est. Patient 15:44:38 CDT [facility] Est. Patient 11:34:17 CDT Baltazar Childers MD [facility] CPT-02623 Level 3 Est. Patient 16:40:40 CDT Baltazar Childers MD [facility]-54929 Level 4 Est. Patient 10:41:24 CDT Baltazar Childers MD [facility] CPT-90008 Level 4 Est. Patient 16:01:48 CDT Baltazar Childers MD [facility] CPT-97906 Level 4 Est. Patient 16:54:07 FABRIC CUTTER Baltazar Childers MD [facility]-76016 Level 4 Est. Patient 15:42:12 CDT Baltazar Childers MD [facility] CPT-54636 Level 4 Est. Patient 11:29:55 CDT Baltazar Childers MD [facility] CPT-52941 Level 4 Est. Patient 14:15:19 CDT Baltazar Childers MD [facility] CPT-99574 Level 4 Est. Patient 12:20:13 CDT Baltazar Childers MD [facility] CPT-16844 Level 4 Est. Patient 14:52:45 FABRIC CUTTER Baltazar Childers MD [facility] CPT-86663 Level 4 Est. Patient 14:18:34 FABRIC CUTTER Baltazar Childers MD [facility] CPT-44150 Level 4 Est. Patient 15:18:29 CDT Baltazar Childers MD [facility] CPT-34545 Level 3 Est. Patient 12:45:34 CDT Baltazar Childers MD [facility] CPT-90145 Level 3 Est. Patient 10:10:11 CDT Baltazar Childers MD [facility] CPT-66416 Level 3 Est. Patient 14:07:50 CDT Baltazar Childers MD [facility] CPT-78680 Level 4 Est. Patient 12:26:10 FABRIC CUTTER Baltazar Childers MD [facility] CPT-93911 Level 4 Est. Patient 14:45:38 CDT Baltazar Childers MD [facility] CPT-74345 Level 4 New Patient 12:30:48 CDT Baltazar hinton MD [facility] Procedures Code Procedure Name Date Entry Date Standard Desc ription CPT-60243 Venipuncture Draw Fee 17:47:23 CDT CPT-88636 4M Drug Screen cup test, Multi-panel, urine 2018 14:28:39 CDT CPT-72515 Venipuncture Draw Fee 15:19:00 CDT CPT-000 Give Appropriate Flu Vaccine 12:25:14 CDT 2 CPT-57868 First Vx - Ix admin via ID I M or jet injects without counseling by physician 13:08:59 CDT CPT-16597 Fluzone Quadrivalent Intramuscular Suspe nsion 0.5 ML 13:08:59 CDT CPT-54718 Venipuncture Draw Fee 12:04:12 CDT CPT-72526 Lipid - LAB USE ONLY 17:39:15 FABRIC CUTTER 9 CPT-65839 HGBA1C - LAB USE ONLY 17:39:15 FABRIC CUTTER CPT-96612 CMP - LAB USE ONLY 17:39:14 FABRIC CUTTER CPT-78443 Venipuncture Draw Fee 17:39:14 FABRIC CUTTER CPT-47372 First Vx - Ix admin via ID I M or jet injects without counseling by physician 16:55:17 FABRIC CUTTER CPT-96236 Fluzone Quadrivalent Intramuscular Suspe nsion 0.5 ML 16:55:17 FABRIC CUTTER CPT-10756 Renal Panel - LAB USE ONLY 17:39:20 CDT 201 10/31/07 CPT-96202 CBC - LAB USE ONLY 17:39:20 CDT CPT-65989 Venipuncture Draw Fee 17:39:20 CDT CPT-45132 Venipuncture Draw Fee 14:33:30 CDT CPT-21138 Renal Panel - LAB USE ONLY 14:33:30 CDT 201 10/31/07 CPT-71591 CBC - LAB USE ONLY 14:33:29 CDT CPT-18864 Venipuncture Draw Fee 14:50:21 FABRIC CUTTER CPT-45894 Immunization Single Admin 17:35:35 CDT 2014 CPT-61536 Fluzone Quadrivalent preservative free ( >=3yrs.) 17:35:35 CDT CPT-74445 Venipuncture Draw Fee 12:10:27 FABRIC CUTTER CPT-26241 Fluzone Quadrivalent Intramuscular Suspe nsion 0.5 ML 10:49:13 CDT CPT-35689 First Vx Component - Ix admi n via ID IM or jet inj without physician counseling 15:17:19 FABRIC CUTTER CPT-27317 Pneumovax 23 15:17:19 FABRIC CUTTER CPT-11472 Pneumovax 14:52:45 FABRIC CUTTER CPT-72826 Venipuncture Draw Fee 14:06:30 FABRIC CUTTER CPT-000 Give Appropriate Flu Vaccine 14:18:34 FABRIC CUTTER 2 CPT-39562 Administration single or combination vac cine inc oral 14:46:00 FABRIC CUTTER CPT-68109 Influenza split virus > age 3 14:46:00 FABRIC CUTTER CPT-OV Office Visit 19:13:16 CDT CPT-26350 Zostavax 18:41:56 CDT CPT-69474 Administration single or combination vac cine inc oral 12:56:39 CDT CPT-05303 Zoster Vaccine (Zostavax) 12:56:39 CDT 2012 CPT-73420 Venipuncture Draw Fee 10:58:57 CDT CPT-24736 Sono pelvis non OB uterus ovaries cervix 17:45:04 CDT CPT-07741 Sono retroperitoneal complete kidneys an d bladder 17:14:36 CDT CPT-OV Office Visit 14:59:38 FABRIC CUTTER CPT-J1070 Depo Testosterone 100 mg 14:50:13 CDT 03/05 CPT-04622 Abx/Therapy Injection 14:50:13 CDT CPT-25628 Administration single or combination vac cine inc oral 14:34:43 CDT CPT-26671 Influenza split virus > age 3 14:34:43 CDT CPT-J1070 Depo Testosterone 100 mg 17:37:13 CDT 01/11 CPT-83052 Abx/Therapy Injection 17:37:13 CDT CPT-71999 Venipuncture Draw Fee 16:30:13 CDT CPT-35245 Venipuncture Draw Fee 16:29:43 CDT CPT-J1070 Depo Testosterone 100 mg 14:45:38 CDT 01/11
--- OUTSIDE RECORDS SUMMARY | 2019-10-27 12:12 | XMS REPORT | Clinical Summary ---
Author Author Admin, Elba Lance [facility] Address Unknown Phone Unavailable Allergies, Adverse [...] legs syndrome (RLS) DIABETES MELLITUS 250.00 Active Baltaazr Childers MD Diabetes mellitus without mention of [...] ronary atherosclerosis of unspecified type of vessel, [place] or graft OTH NONSPC ABN FINDNG RAD&OTH [...] Instructions Start Date Stop Date Generic Name [facility] Status Provider Patient Instruction GLIPIZIDE 10MG TABLETS TAKE 2 TABLETS BY MOUTH TWICE DAILY GLIPIZIDE 05832094454 Active KENDALL Juarez Active TRUE METRIX B/G TEST STRIPS 25'S TEST BLOOD SUGAR TWICE DAILY 03/02 GLUCOSE BLOOD 02360568279 Active KENDALL Juarez Active ONGLYZA 2.5MG TABLETS TAKE 1 TABLET BY MOUTH DAILY FOR DIABETES 201 02/01/09 SAXAGLIPTIN HCL 94531136840 Active KENDALL Juarez Active LEVOTHYROXINE 0.112MG (112MCG) TABS TAKE 1 TABLET BY MOUTH EVERY DAY LEVOTHYROXINE SODIUM 68892611262 Active KENDALL Juarez Active AMLODIPINE BESYLATE 5MG TABLETS TAKE 1 TABLET BY MOUTH EVERY DAY FOR HYPERTENSION AMLODIPINE BESYLATE 08483921294 Active KENDALL Acosta Active LANTUS SOLOSTAR 100 UNIT/ML SUBCUTANEOUS SOLUTION PEN- INJECTOR 20 units am and 13 units at night INSULIN GLARGINE 16440637831 Active Baltazar Childers MD Active TRAMADOL HCL 50 MG ORAL TABLET 1 twice a day as needed for pain TRAMADOL HCL 70994695913 No Longer Active Baltazar Childers MD Active ROBAXIN 500 MG ORAL TABLET Take 1.5 (one and one half) tabs once daily METHOCARBAMOL 63431582774 Active Baltaazr Childers MD Active TRUE METRIX AIR GLUCOSE METER DEVICE Use as directed BLOOD GLUCOSE MONITORING SUPPL 75273074689 Active Baltazar Childers MD Activ e NORTRIPTYLINE HCL 50 MG ORAL CAPSULE 1 twice a day for neuropathy 2 NORTRIPTYLINE HCL 05869099784 Active Baltazar Childers MD Acti ve ASPIRIN 81 MG TBEC Take one (1) tablet by mouth daily ASPIRIN 88724021515 Active Baltazar Childers MD Active GABAPENTIN 300 MG ORAL CAPSULE 1 three times a day 201 12/03/26 GABAPENTIN 20243658728 No Longer Active Baltazar Childers MD Activ e LISINOPRIL 20 MG ORAL TABLET 1 tablet by mouth daily at night 2016 LISINOPRIL 12691966078 Active Baltazar Childers MD Active ZITHROMAX Z-ISAIAS 250 MG ORAL TABLET Take two tablets to day and then 1 tablet daily for 4 days AZITHROMYCIN 78935749134 No Longer A ctive Baltazar Childers MD Active SUCRALFATE 1 GM ORAL TABLET 1 four times a day to coat the stoma ch SUCRALFATE 11937862509 No Longer Active Baltazar Childers MD Active PEN NEEDLES 31G X 6 MM use 1 daily INSULIN PEN NE EDLE 92692164086 Active KENDALL Juarez Active TOUJEO SOLOSTAR 300 UNIT/ML SUBCUTANEOUS SOLUTION PEN- INJECTOR 10 units SC daily INSULIN GLARGINE 10215986670 No Longer Active Rola ARGUETA Active NAPROXEN SODIUM 220 MG ORAL TABLET 1 three times a day as needed NAPROXEN SODIUM 56954707560 No Longer Active Baltazar Childers MD Active ATORVASTATIN CALCIUM 20 MG ORAL TABLET Take 1 tab daily ATORVASTATIN CALCIUM 75337729568 Active Baltazar Childers MD A ctive FUROSEMIDE 40 MG ORAL TABLET Take one by mouth daily FUROSEMIDE 58797001891 Active Baltazar Childers MD Active LISINOPRIL 20 MG ORAL TABLET Take one by mouth daily at bedtime LISINOPRIL 08847525275 No Longer Active Baltazar Childers MD Active ONETOUCH ULTRA BLUE IN VITRO STRIP Test twice a day 07/11/11 GLUCOSE BLOOD 87605046414 No Longer Active Baltazar Childers MD Acti ve TRUEPLUS LANCETS 33G Test twice a day LANCETS 5056715 0280 Active KENDALL Juarez Active TRUEDRAW LANCING DEVICE Test twice a day LANCET DEVICES 74428709243 Active Baltazar Childers MD Active TRUETRACK BLOOD GLUCOSE w/Device KIT Test twice a day BLOOD GLUCOSE MONITORING SUPPL 32932886095 Active Baltazar Childers MD Activ e HYDROCODONE-ACETAMINOPHEN 7.5-325 MG ORAL TABLET Take 1 tab every 6-8 hours PRN HYDROCODONE-ACETAMINOPHEN 64916900419 Active Baltazar Nickerson MD Active GABAPENTIN 300 MG ORAL CAPSULE 1 po qd x 2 days, then 1 po BID x 2 days, then 1 po TID GABAPENTIN 42376687026 No Longer Active Baltazar Childers MD Active NAPROXEN 500 MG ORAL TABLET 1 tablet by mouth twice daily NAPROXEN 07449374265 No Longer Active Baltazar Childers MD Active PROAIR HFA 108 (90 Base) MCG/ACT INHALATION AEROSOL SO LUTION 2 puffs four times a day as needed ALBUTEROL SULFATE 11414969741 Active Shun Arellano LPN Active DEPO-TESTOSTERONE 200 MG/ML INTRAMUSCULAR SOLUTION as directed TESTOSTERONE CYPIONATE 23803926768 No Longer Active Baltazar Childers MD Active LIPITOR 20 MG ORAL TABLET Take one by mouth daily in evening ATORVASTATIN CALCIUM 52779583952 No Longer Active Baltazar Childers MD Active CRESTOR 10 MG ORAL TABLET 1 by mouth every day ROSUVASTATIN CALCIUM 58929678286 No Longer Active Baltazar Childers MD Active PHENTERMINE HCL 37.5 MG ORAL TABLET Take one by mouth daily PHENTERMINE HCL 78162968197 No Longer Active Baltazar Childers MD Ac tive TIZANIDINE HCL 4 MG ORAL TABLET 1 daily as needed for muscle spa sm TIZANIDINE HCL 88215362424 No Longer Active Dawna Salazar RN Active [id number] 50-325-40 MG ORAL TABLET 1 fo ur times a day as needed for heacache [id number] 69980472172 Active KENDALL Juarez Active SUMATRIPTAN SUCCINATE 100 MG ORAL TABLET 1 tablet by m outh at onset of migraine as needed SUMATRIPTAN SUCCINATE 70491787471 Active Baltazar Nickerson MD Active LORATADINE 10 MG ORAL TABLET Take one by mouth daily LORATADINE 19587631811 Active Baltazar Childers MD Active OMEPRAZOLE 20 MG ORAL CAPSULE DELAYED RELEASE Take one by mouth jostin ly OMEPRAZOLE 33850569841 Active Baltazar Childers MD Active HYDROXYZINE HCL 25 MG ORAL TABLET Take one by mouth daily HYDROXYZINE HCL 01546977771 Active Baltazar Childers MD Active ALPRAZOLAM 1 MG ORAL TABLET 1 tablet [facility] ALPRAZOLAM 83293800022 Active Baltazar Childers MD Active METFORMIN HCL 1000 MG ORAL TABLET Take one by mouth twice daily METFORMIN HCL 74539780370 Active Baltazar Childers MD Active TIZANIDINE HCL 4 MG ORAL TABLET 1 daily as needed for muscle spa sm TIZANIDINE HCL 4 MG ORAL TABLET 074375 TIZANIDINE HCL Inactive PHENTERMINE HCL 37.5 MG ORAL TABLET Take one by mouth daily PHENTERMINE HCL 37.5 MG ORAL TABLET 650155 PHENTERMINE HCL Inac tive CRESTOR 10 MG ORAL TABLET 1 by mouth every day CRESTOR 10 MG ORAL TABLET 982833 ROSUVASTATIN CALCIUM Inactive LIPITOR 20 MG ORAL TABLET Take one by mouth daily in evening LIPITOR 20 MG ORAL TABLET 746658 ATORVASTATIN CALCIUM Inactive DEPO-TESTOSTERONE 200 MG/ML INTRAMUSCULAR SOLUTION as directed DEPO-TESTOSTERONE 200 MG/ML INTRAMUSCULAR SOLUTION 8173188 RUFINO TOSTERONE CYPIONATE Inactive NAPROXEN 500 MG ORAL TABLET 1 tablet by mouth twice daily NAPROXEN 500 MG ORAL TABLET 070114 NAPROXEN Inactive GABAPENTIN 300 MG ORAL CAPSULE 1 po qd x 2 days, then 1 po BID x 2 days, then 1 po TID GABAPENTIN 300 MG ORAL CAPSULE 820580 GABAP ENTIN Inactive ONETOUCH ULTRA BLUE IN VITRO STRIP Test twice a day 07/11/11 ONETOUCH ULTRA BLUE IN VITRO STRIP GLUCOSE BLOOD Inact amie NAPROXEN SODIUM 220 MG ORAL TABLET 1 three times a day as needed NAPROXEN SODIUM 220 MG ORAL TABLET 79787456728 NAPROXEN SODI UM Inactive TOUJEO SOLOSTAR 300 UNIT/ML SUBCUTANEOUS SOLUTION PEN- INJECTOR 10 units SC daily TOUJEO SOLOSTAR 300 UNIT/ML SUBCUTANEOUS SOLUTION PEN-INJECTOR INSULIN GLARGINE Inactive SUCRALFATE 1 GM ORAL TABLET 1 four times a day to coat the stoma ch SUCRALFATE 1 GM ORAL TABLET 208381 SUCRALFATE Inac tive GABAPENTIN 300 MG ORAL CAPSULE 1 three times a day 201 12/03/26 GABAPENTIN 300 MG ORAL CAPSULE 762857 GABAPENTIN Inactive TRAMADOL HCL 50 MG ORAL TABLET 1 twice a day as needed for pain TRAMADOL HCL 50 MG ORAL TABLET 810442 TRAMADOL HCL I nactive ZITHROMAX Z-ISAIAS 250 MG ORAL TABLET Take two tablets to day and then 1 tablet daily for 4 days ZITHROMAX Z-ISAIAS 250 MG ORAL TAB LET 418797 AZITHROMYCIN Inactive Immunizations Vaccine Administration Date Value Standard Floyd cription influenza immunization (Flu Vax) has been administered 05/11 Done according to patient influenza virus vaccine, unspecified for mulation pneumococcal immunization administered Pneumovax 23 [CVX33] pneumococcal polysaccharide vaccine, 23 valent Seasonal influenza vaccine, injectable, containing preservative, for > 3 years old (Afluria, FluLaval, Fluzone, Fluvirin, Fluarix, Agriflu(>= 18 yo)) Fluzone (>3 yrs.) [[id number]] Influenza, seasonal, inject able Seasonal influenza vaccine, injectable, containing preservative, for > 3 years old (Afluria, FluLaval, Fluzone, Fluvirin, Fluarix, Agriflu(>= 18 yo)) Fluzone (>3 yrs.) [[id number]] Influenza, seasonal, inject able Vital Signs Date [...] - Chem istry sodium, serum 136 mmol/L 800-401 0390/06/04 potassium, serum 4.9 mmol/L 3.5-5.2 chloride, serum 97 mmol/L 98-107 carbon dioxide, venous blood 35.3 mmol/L 21.0-32 .0 blood glucose 239 mg/dL 65-95 calcium, serum 10.6 mg/dL 8.5-10.1 urea nitrogen, blood 31 mg/dL 7-18 creatinine, serum 2.33 mg/dL 0.60-1.30 Estimated Glomerular Filtration Rate (calc) 23 (?) mL/min/1.73m2 = OR > 60 mL/min sodium, serum 141 mmol/L 469-316 4889/07/09 potassium, serum 4.9 mmol/L 3.5-5.2 chloride, serum [...] 0.40 mg/dL 0.00-1.00 cholesterol, serum 218 mg/dL 831-187 3174/12/18 triglyceride, serum, fasting 357 mg/dL 30-200 HDL cholesterol, serum 49 mg/dL 32-60 LDL cholesterol, serum 103.00 mg/dL 5.00-130.00 hemoglobin A1C, blood, as % of total hemoglobin 8.5 % 4.3-6.0 sodium, serum 142 mmol/L 874-546 4129/12/18 carbon dioxide, venous blood 32.5 mmol/L 21.0-32 [...] Ordered Encounters Code Encounter Date Provider Facility CPT-13114 [id number] Vst-Est Level V 14:28:39 CDT Aneudy Childers MD [facility] CPT-23936 [id number] Vst-Est Level IV 15:03:32 CDT Charlie Childers MD [facility] CPT-11605 [id number] Vst-Est Level III 15:51:57 CDT Baltazar Childers MD [facility] CPT-49976 36874-Nij Vst-Est Level IV 15:14:58 CDT Charlie Childers MD [facility] CPT-41459 56158-Bvc Vst-Est Level IV 15:12:52 [facility] Charlie Childers MD [facility] CPT-32254 08166-Qkc Vst-Est Level IV 15:30:55 [facility] Charlie Childers MD [facility] CPT-33428 59763-Gdz Vst-Est Level IV 13:49:06 C DT Ann Michelle [facility]-32526 Level 4 Est. Patient 17:26:08 CDT Ann trujillo [facility]-59566 88686-Dmm Vst-Est Level V 14:26:27 CDT Aneudy Childers MD [facility] CPT-85035 Level 4 Est. Patient 17:05:37 CDT Baltazar Childers MD [facility]-34775 Level 4 Est. Patient 16:21:19 [facility] Baltazar Childers MD [facility]-37010 Level 4 Est. Patient 12:25:11 CDT Baltazar Childers MD [facility]-85770 Level 4 Est. Patient 14:22:31 CDT Baltazar Childers MD [facility]-96210 Level 4 Est. Patient 15:44:38 CDT [facility] Est[facility] Patient 11:34:17 CDT Baltazar Childers MD [facility] CPT-08627 Level 3 Est. Patient 16:40:40 CDT Baltazar Childers MD [facility]-61955 Level 4 Est. Patient 10:41:24 CDT Baltazar Childers MD [facility] CPT-54613 Level 4 Est. Patient 16:01:48 CDT Baltazar Childers MD [facility] CPT-55945 Level 4 Est. Patient 16:54:07 [facility] Baltazar Childers MD [facility]-55289 Level 4 Est. Patient 15:42:12 CDT Baltazar Childers MD [facility] CPT-05969 Level 4 Est. Patient 11:29:55 CDT Baltazar Childers MD [facility] CPT-29708 Level 4 Est. Patient 14:15:19 CDT Baltazar Childers MD [facility] CPT-06873 Level 4 Est. Patient 12:20:13 CDT Baltazar Childers MD [facility] CPT-06712 Level 4 Est. Patient 14:52:45 [facility] Baltazar Childers MD [facility] CPT-38479 Level 4 Est. Patient 14:18:34 [facility] Baltazar Childers MD [facility] CPT-79308 Level 4 Est. Patient 15:18:29 CDT Baltazar Childers MD [facility] CPT-23914 Level 3 Est. Patient 12:45:34 CDT Baltazar Childers MD [facility] CPT-74806 Level 3 Est. Patient 10:10:11 CDT Baltazar Childers MD [facility] CPT-76813 Level 3 Est. Patient 14:07:50 CDT Baltazar Childers MD [facility] CPT-84537 Level 4 Est. Patient 12:26:10 [facility] Baltazar Childers MD [facility] CPT-53995 Level 4 Est. Patient 14:45:38 CDT Baltazar Childers MD [facility] CPT-05599 Level 4 New Patient 12:30:48 CDT Baltazar hinton MD [facility] Procedures Code Procedure Name Date Entry Date Standard Desc ription CPT-70006 Venipuncture Draw Fee 17:47:23 CDT CPT-62838 4M Drug Screen cup test, Multi-panel, urine 2018 14:28:39 CDT CPT-63542 Venipuncture Draw Fee 15:19:00 CDT CPT-000 Give Appropriate Flu Vaccine 12:25:14 CDT 2 CPT-74851 First Vx - Ix admin via ID I M or jet injects without counseling by physician 13:08:59 CDT CPT-83155 Fluzone Quadrivalent Intramuscular Suspe nsion 0.5 ML 13:08:59 CDT CPT-87733 Venipuncture Draw Fee 12:04:12 CDT CPT-51947 Lipid - LAB USE ONLY 17:39:15 [facility] 9 CPT-89754 HGBA1C - LAB USE ONLY 17:39:15 [facility] CPT-17601 CMP - LAB USE ONLY 17:39:14 [facility] CPT-71523 Venipuncture Draw Fee 17:39:14 [facility] CPT-93736 First Vx - Ix admin via ID I M or jet injects without counseling by physician 16:55:17 [facility] CPT-33067 Fluzone Quadrivalent Intramuscular Suspe nsion 0.5 ML 16:55:17 [facility] CPT-27631 Renal Panel - LAB USE ONLY 17:39:20 CDT 201 10/31/07 CPT-66067 CBC - LAB USE ONLY 17:39:20 CDT CPT-55973 Venipuncture Draw Fee 17:39:20 CDT CPT-82139 Venipuncture Draw Fee 14:33:30 CDT CPT-20247 Renal Panel - LAB USE ONLY 14:33:30 CDT 201 10/31/07 CPT-21096 CBC - LAB USE ONLY 14:33:29 CDT CPT-46371 Venipuncture Draw Fee 14:50:21 [facility] CPT-09089 Immunization Single Admin 17:35:35 CDT 2014 CPT-50577 Fluzone Quadrivalent preservative free ( >=3yrs.) 17:35:35 CDT CPT-94372 Venipuncture Draw Fee 12:10:27 [facility] CPT-23328 Fluzone Quadrivalent Intramuscular Suspe nsion 0.5 ML 10:49:13 CDT CPT-43448 First Vx Component - Ix admi n via ID IM or jet inj without physician counseling 15:17:19 [facility] CPT-10335 Pneumovax 23 15:17:19 [facility] CPT-77013 Pneumovax 14:52:45 [facility] CPT-26604 Venipuncture Draw Fee 14:06:30 [facility] CPT-000 Give Appropriate Flu Vaccine 14:18:34 [facility] 2 CPT-10585 Administration single or combination vac cine inc oral 14:46:00 [facility] CPT-92340 Influenza split virus > age 3 14:46:00 [facility] CPT-OV Office Visit 19:13:16 CDT CPT-46818 Zostavax 18:41:56 CDT CPT-99054 Administration single or combination vac cine inc oral 12:56:39 CDT CPT-30731 Zoster Vaccine (Zostavax) 12:56:39 CDT 2012 CPT-99785 Venipuncture Draw Fee 10:58:57 CDT CPT-98710 Sono pelvis non OB uterus ovaries cervix 17:45:04 CDT CPT-02554 Sono retroperitoneal complete kidneys an d bladder 17:14:36 CDT CPT-OV Office Visit 14:59:38 [facility] CPT-J1070 Depo Testosterone 100 mg 14:50:13 CDT 03/05 CPT-48275 Abx/Therapy Injection 14:50:13 CDT CPT-00789 Administration single or combination vac cine inc oral 14:34:43 CDT CPT-06854 Influenza split virus > age 3 14:34:43 CDT CPT-J1070 Depo Testosterone 100 mg 17:37:13 CDT 01/11 CPT-42729 Abx/Therapy Injection 17:37:13 CDT CPT-35577 Venipuncture Draw Fee 16:30:13 CDT CPT-00674 Venipuncture Draw Fee 16:29:43 CDT CPT-J1070 Depo Testosterone 100 mg 14:45:38 CDT 01/11
--- OUTSIDE RECORDS SUMMARY | 2019-10-27 12:12 | XMS REPORT | Clinical Summary ---
Author Author Admin, Elba Lance [facility] Address Unknown Phone Unavailable Allergies, Adverse [...] Morbid obesity due to excess calories 278.01 [facility] t Baltazar Childers MD Morbid obesity Obesity Class II (BMI 35-39.9) 278.01 Refinement 10/26 Baltazar Childers MD Morbid obesity Morbid obesity due to excess calories 278.01 [facility] t Baltazar Childers MD Morbid [...] of unspecified type of vessel, [place] or graft OTH NONSPC ABN FINDNG RAD&OTH [...] Instructions Start Date Stop Date Generic Name [facility] Status Provider Patient Instruction GLIPIZIDE 10MG TABLETS TAKE 2 TABLETS BY MOUTH TWICE DAILY GLIPIZIDE 35315747548 Active KENDALL Juarez Active TRUE METRIX B/G TEST STRIPS 25'S TEST BLOOD SUGAR TWICE DAILY 03/02 GLUCOSE BLOOD 38423762841 Active KENDALL Juarez Active ONGLYZA 2.5MG TABLETS TAKE 1 TABLET BY MOUTH DAILY FOR DIABETES 201 02/01/09 SAXAGLIPTIN HCL 32419997112 Active KENDALL Juarez Active LEVOTHYROXINE 0.112MG (112MCG) TABS TAKE 1 TABLET BY MOUTH EVERY DAY LEVOTHYROXINE SODIUM 59080947878 Active KENDALL Juarez Active AMLODIPINE BESYLATE 5MG TABLETS TAKE 1 TABLET BY MOUTH EVERY DAY FOR HYPERTENSION AMLODIPINE BESYLATE 32621707944 Active KENDALL Acosta Active LANTUS SOLOSTAR 100 UNIT/ML SUBCUTANEOUS SOLUTION PEN- INJECTOR 20 units am and 13 units at night INSULIN GLARGINE 07982062581 Active Baltazar Childers MD Active TRAMADOL HCL 50 MG ORAL TABLET 1 twice a day as needed for pain TRAMADOL HCL 70975354516 No Longer Active Baltazar Childers MD Active ROBAXIN 500 MG ORAL TABLET Take 1.5 (one and one half) tabs once daily METHOCARBAMOL 20134012784 Active Baltazar Childers MD Active TRUE METRIX AIR GLUCOSE METER DEVICE Use as directed BLOOD GLUCOSE MONITORING SUPPL 96547631040 Active Baltazar Childers MD Activ e NORTRIPTYLINE HCL 50 MG ORAL CAPSULE 1 twice a day for neuropathy 2 NORTRIPTYLINE HCL 36650915357 Active Baltazar Childers MD Acti ve ASPIRIN 81 MG TBEC Take one (1) tablet by mouth daily ASPIRIN 59565935413 Active Baltazar Childers MD Active GABAPENTIN 300 MG ORAL CAPSULE 1 three times a day 201 12/03/26 GABAPENTIN 42684434269 No Longer Active Baltazar Childers MD Activ e LISINOPRIL 20 MG ORAL TABLET 1 tablet by mouth daily at night 2016 LISINOPRIL 40269602376 Active Baltazar Childers MD Active ZITHROMAX Z-ISAIAS 250 MG ORAL TABLET Take two tablets to day and then 1 tablet daily for 4 days AZITHROMYCIN 40744561996 No Longer A ctive Baltazar Childers MD Active SUCRALFATE 1 GM ORAL TABLET 1 four times a day to coat the stoma ch SUCRALFATE 03898195468 No Longer Active Baltazar Childers MD Active PEN NEEDLES 31G X 6 MM use 1 daily INSULIN PEN NE EDLE 75482463147 Active KENDALL Juarez Active TOUJEO SOLOSTAR 300 UNIT/ML SUBCUTANEOUS SOLUTION PEN- INJECTOR 10 units SC daily INSULIN GLARGINE 70693671625 No Longer Active Rola ARGUETA Active NAPROXEN SODIUM 220 MG ORAL TABLET 1 three times a day as needed NAPROXEN SODIUM 78425693316 No Longer Active Baltazar Childers MD Active ATORVASTATIN CALCIUM 20 MG ORAL TABLET Take 1 tab daily ATORVASTATIN CALCIUM 42566614937 Active Baltazar Childers MD A ctive FUROSEMIDE 40 MG ORAL TABLET Take one by mouth daily FUROSEMIDE 31673251948 Active Baltazar Childers MD Active LISINOPRIL 20 MG ORAL TABLET Take one by mouth daily at bedtime LISINOPRIL 29961389646 No Longer Active Baltazar Childers MD Active ONETOUCH ULTRA BLUE IN VITRO STRIP Test twice a day 07/11/11 GLUCOSE BLOOD 25731927003 No Longer Active Baltazar Childers MD Acti ve TRUEPLUS LANCETS 33G Test twice a day LANCETS 8241244 9977 Active KENDALL Juarez Active TRUEDRAW LANCING DEVICE Test twice a day LANCET DEVICES 48378183413 Active Baltazar Childers MD Active TRUETRACK BLOOD GLUCOSE w/Device KIT Test twice a day BLOOD GLUCOSE MONITORING SUPPL 74448735201 Active Baltazar Childers MD Activ e HYDROCODONE-ACETAMINOPHEN 7.5-325 MG ORAL TABLET Take 1 tab every 6-8 hours PRN HYDROCODONE-ACETAMINOPHEN 99838122616 Active Baltazar Nickerson MD Active GABAPENTIN 300 MG ORAL CAPSULE 1 po qd x 2 days, then 1 po BID x 2 days, then 1 po TID GABAPENTIN 88003355411 No Longer Active Baltazar Childers MD Active NAPROXEN 500 MG ORAL TABLET 1 tablet by mouth twice daily NAPROXEN 58232146543 No Longer Active Baltazar Childers MD Active PROAIR HFA 108 (90 Base) MCG/ACT INHALATION AEROSOL SO LUTION 2 puffs four times a day as needed ALBUTEROL SULFATE 08776800745 Active Shun Arellano LPN Active DEPO-TESTOSTERONE 200 MG/ML INTRAMUSCULAR SOLUTION as directed TESTOSTERONE CYPIONATE 05866329255 No Longer Active Baltazar Childers MD Active LIPITOR 20 MG ORAL TABLET Take one by mouth daily in evening ATORVASTATIN CALCIUM 92243268951 No Longer Active Baltazar Childers MD Active CRESTOR 10 MG ORAL TABLET 1 by mouth every day ROSUVASTATIN CALCIUM 85772098551 No Longer Active Baltazar Childers MD Active PHENTERMINE HCL 37.5 MG ORAL TABLET Take one by mouth daily PHENTERMINE HCL 24842517423 No Longer Active Baltazar Childers MD Ac tive TIZANIDINE HCL 4 MG ORAL TABLET 1 daily as needed for muscle spa sm TIZANIDINE HCL 21948790226 No Longer Active Dawna Salazar RN Active [id number] 50-325-40 MG ORAL TABLET 1 fo ur times a day as needed for heacache [id number] 27238440908 Active KENDALL Juarez Active SUMATRIPTAN SUCCINATE 100 MG ORAL TABLET 1 tablet by m outh at onset of migraine as needed SUMATRIPTAN SUCCINATE 53161989480 Active Baltazar Nickerson MD Active LORATADINE 10 MG ORAL TABLET Take one by mouth daily LORATADINE 20563536978 Active Baltazar Childers MD Active OMEPRAZOLE 20 MG ORAL CAPSULE DELAYED RELEASE Take one by mouth jostin ly OMEPRAZOLE 26808857760 Active Baltazar Childers MD Active HYDROXYZINE HCL 25 MG ORAL TABLET Take one by mouth daily HYDROXYZINE HCL 91114017088 Active Baltazar Childers MD Active ALPRAZOLAM 1 MG ORAL TABLET 1 [facility] 51121336249 Active Baltazar Childers MD Active METFORMIN HCL 1000 MG ORAL TABLET Take one by mouth twice daily METFORMIN HCL 30410997787 Active Baltazar Childers MD Active TIZANIDINE HCL 4 MG ORAL TABLET 1 daily as needed for muscle spa sm TIZANIDINE HCL 4 MG ORAL TABLET 576973 TIZANIDINE HCL Inactive PHENTERMINE HCL 37.5 MG ORAL TABLET Take one by mouth daily PHENTERMINE HCL 37.5 MG ORAL TABLET 946550 PHENTERMINE HCL Inac tive CRESTOR 10 MG ORAL TABLET 1 by mouth every day CRESTOR 10 MG ORAL TABLET 942247 ROSUVASTATIN CALCIUM Inactive LIPITOR 20 MG ORAL TABLET Take one by mouth daily in evening LIPITOR 20 MG ORAL TABLET 221430 ATORVASTATIN CALCIUM Inactive DEPO-TESTOSTERONE 200 MG/ML INTRAMUSCULAR SOLUTION as directed DEPO-TESTOSTERONE 200 MG/ML INTRAMUSCULAR SOLUTION 8908338 RUFINO TOSTERONE CYPIONATE Inactive NAPROXEN 500 MG ORAL TABLET 1 tablet by mouth twice daily NAPROXEN 500 MG ORAL TABLET 979199 NAPROXEN Inactive GABAPENTIN 300 MG ORAL CAPSULE 1 po qd x 2 days, then 1 po BID x 2 days, then 1 po TID GABAPENTIN 300 MG ORAL CAPSULE 501049 GABAP ENTIN Inactive ONETOUCH ULTRA BLUE IN VITRO STRIP Test twice a day 07/11/11 ONETOUCH ULTRA BLUE IN VITRO STRIP GLUCOSE BLOOD Inact amie NAPROXEN SODIUM 220 MG ORAL TABLET 1 three times a day as needed NAPROXEN SODIUM 220 MG ORAL TABLET 58223456597 NAPROXEN SODI UM Inactive TOUJEO SOLOSTAR 300 UNIT/ML SUBCUTANEOUS SOLUTION PEN- INJECTOR 10 units SC daily TOUJEO SOLOSTAR 300 UNIT/ML SUBCUTANEOUS SOLUTION PEN-INJECTOR INSULIN GLARGINE Inactive SUCRALFATE 1 GM ORAL TABLET 1 four times a day to coat the stoma ch SUCRALFATE 1 GM ORAL TABLET 461951 SUCRALFATE Inac tive GABAPENTIN 300 MG ORAL CAPSULE 1 three times a day 201 12/03/26 GABAPENTIN 300 MG ORAL CAPSULE 664463 GABAPENTIN Inactive TRAMADOL HCL 50 MG ORAL TABLET 1 twice a day as needed for pain TRAMADOL HCL 50 MG ORAL TABLET 201354 TRAMADOL HCL I nactive ZITHROMAX Z-ISAIAS 250 MG ORAL TABLET Take two tablets to day and then 1 tablet daily for 4 days ZITHROMAX Z-ISAIAS 250 MG ORAL TAB LET 805499 AZITHROMYCIN Inactive Immunizations Vaccine Administration Date Value Standard Floyd cription influenza immunization (Flu Vax) has been administered 05/11 Done according to patient influenza virus vaccine, unspecified for mulation pneumococcal immunization administered Pneumovax 23 [CVX33] pneumococcal polysaccharide vaccine, 23 valent Seasonal influenza vaccine, injectable, containing preservative, for > 3 years old (Afluria, FluLaval, Fluzone, Fluvirin, Fluarix, Agriflu(>= 18 yo)) Fluzone (>3 yrs.) [DZJ312] Influenza, seasonal, inject able Seasonal influenza vaccine, injectable, containing preservative, for > 3 years old (Afluria, FluLaval, Fluzone, Fluvirin, Fluarix, Agriflu(>= 18 yo)) Fluzone (>3 yrs.) [IYK254] Influenza, seasonal, inject able Vital Signs Date [...] - Chem istry sodium, serum 136 mmol/L 009-923 2226/06/04 potassium, serum 4.9 mmol/L 3.5-5.2 chloride, serum 97 mmol/L 98-107 carbon dioxide, venous blood 35.3 mmol/L 21.0-32 .0 blood glucose 239 mg/dL 65-95 calcium, serum 10.6 mg/dL 8.5-10.1 urea nitrogen, blood 31 mg/dL 7-18 creatinine, serum 2.33 mg/dL 0.60-1.30 Estimated Glomerular Filtration Rate (calc) 23 (?) mL/min/1.73m2 = OR > 60 mL/min sodium, serum 141 mmol/L 606-565 7534/07/09 potassium, serum 4.9 mmol/L 3.5-5.2 chloride, serum [...] 0.40 mg/dL 0.00-1.00 cholesterol, serum 218 mg/dL 653-814 2456/12/18 triglyceride, serum, fasting 357 mg/dL 30-200 HDL cholesterol, serum 49 mg/dL 32-60 LDL cholesterol, serum 103.00 mg/dL 5.00-130.00 hemoglobin A1C, blood, as % of total hemoglobin 8.5 % 4.3-6.0 sodium, serum 142 mmol/L 829-861 5911/12/18 carbon dioxide, venous blood 32.5 mmol/L 21.0-32 [...] Ordered Encounters Code Encounter Date Provider Facility CPT-52653 [id number] Vst-Est Level V 14:28:39 CDT Aneudy Childers MD [facility] CPT-70545 87098-Gog Vst-Est Level IV 15:03:32 CDT Charlie Childers MD [facility] CPT-92478 51937-Ndt Vst-Est Level III 15:51:57 CDT Baltazar Childers MD [facility] CPT-08490 45354-Nwv Vst-Est Level IV 15:14:58 CDT Charlie Childers MD [facility] CPT-98287 82621-Ckj Vst-Est Level IV 15:12:52 CRANE ENGINEER Charlie Childers MD [facility] CPT-80081 96088-Vxw Vst-Est Level IV 15:30:55 CRANE ENGINEER Charlie Childers MD [facility] CPT-17910 94432-Ymz Vst-Est Level IV 13:49:06 C DT Ann Michelle [facility]-52686 Level 4 Est. Patient 17:26:08 CDT Ann trujillo [facility]-26187 64648-Flo Vst-Est Level V 14:26:27 CDT Aneudy Childers MD [facility] CPT-98113 Level 4 Est. Patient 17:05:37 CDT Baltazar Childers MD [facility]-37728 Level 4 Est. Patient 16:21:19 CRANE ENGINEER Baltazar Childers MD [facility]-53969 Level 4 Est. Patient 12:25:11 CDT Baltazar Childers MD [facility]-71698 Level 4 Est. Patient 14:22:31 CDT Baltazar Childers MD [facility]-64546 Level 4 Est. Patient 15:44:38 [facility] Patient 11:34:17 CDT Baltazar Childers MD [facility] CPT-33157 Level 3 Est. Patient 16:40:40 CDT Baltazar Childers MD [facility]-31659 Level 4 Est. Patient 10:41:24 CDT Baltazar Childers MD [facility] CPT-21285 Level 4 Est. Patient 16:01:48 CDT Baltazar Childers MD [facility] CPT-97431 Level 4 Est. Patient 16:54:07 CRANE ENGINEER Baltazar Childers MD [facility]-20744 Level 4 Est. Patient 15:42:12 CDT Baltazar Childers MD [facility] CPT-14922 Level 4 Est. Patient 11:29:55 CDT Baltazar Childers MD [facility] CPT-89223 Level 4 Est. Patient 14:15:19 CDT Baltazar Childers MD [facility] CPT-09258 Level 4 Est. Patient 12:20:13 CDT Baltazar Childers MD [facility] CPT-77380 Level 4 Est. Patient 14:52:45 CRANE ENGINEER Baltazar Childers MD [facility] CPT-41526 Level 4 Est. Patient 14:18:34 CRANE ENGINEER Baltazar Childers MD [facility] CPT-03867 Level 4 Est. Patient 15:18:29 CDT Baltazar Childers MD [facility] CPT-61579 Level 3 Est. Patient 12:45:34 CDT Baltazar Childers MD [facility] CPT-54061 Level 3 Est. Patient 10:10:11 CDT Baltazar Childers MD [facility] CPT-30125 Level 3 Est. Patient 14:07:50 CDT Baltazar Childers MD [facility] CPT-94392 Level 4 Est. Patient 12:26:10 CRANE ENGINEER Baltazar Childers MD [facility] CPT-15090 Level 4 Est. Patient 14:45:38 CDT Baltazar Childers MD [facility] CPT-50616 Level 4 New Patient 12:30:48 CDT Baltazar hinton MD [facility] Procedures Code Procedure Name Date Entry Date Standard Desc ription CPT-18522 4M Drug Screen cup test, Multi-panel, urine 2018 14:28:39 CDT CPT-46494 Venipuncture Draw Fee 15:19:00 CDT CPT-000 Give Appropriate Flu Vaccine 12:25:14 CDT 2 CPT-61700 First Vx - Ix admin via ID I M or jet injects without counseling by physician 13:08:59 CDT CPT-85081 Fluzone Quadrivalent Intramuscular Suspe nsion 0.5 ML 13:08:59 CDT CPT-23467 Venipuncture Draw Fee 12:04:12 CDT CPT-53011 Lipid - LAB USE ONLY 17:39:15 CRANE ENGINEER 9 CPT-32107 HGBA1C - LAB USE ONLY 17:39:15 CRANE ENGINEER CPT-64269 CMP - LAB USE ONLY 17:39:14 CRANE ENGINEER CPT-46224 Venipuncture Draw Fee 17:39:14 CRANE ENGINEER CPT-73044 First Vx - Ix admin via ID I M or jet injects without counseling by physician 16:55:17 CRANE ENGINEER CPT-06215 Fluzone Quadrivalent Intramuscular Suspe nsion 0.5 ML 16:55:17 CRANE ENGINEER CPT-59855 Renal Panel - LAB USE ONLY 17:39:20 CDT 201 10/31/07 CPT-61562 CBC - LAB USE ONLY 17:39:20 CDT CPT-07703 Venipuncture Draw Fee 17:39:20 CDT CPT-45485 Venipuncture Draw Fee 14:33:30 CDT CPT-81265 Renal Panel - LAB USE ONLY 14:33:30 CDT 201 10/31/07 CPT-94839 CBC - LAB USE ONLY 14:33:29 CDT CPT-60901 Venipuncture Draw Fee 14:50:21 CRANE ENGINEER CPT-85252 Immunization Single Admin 17:35:35 CDT 2014 CPT-16478 Fluzone Quadrivalent preservative free ( >=3yrs.) 17:35:35 CDT CPT-84777 Venipuncture Draw Fee 12:10:27 CRANE ENGINEER CPT-36402 Fluzone Quadrivalent Intramuscular Suspe nsion 0.5 ML 10:49:13 CDT CPT-79197 First Vx Component - Ix admi n via ID IM or jet inj without physician counseling 15:17:19 CRANE ENGINEER CPT-12994 Pneumovax 23 15:17:19 CRANE ENGINEER CPT-38594 Pneumovax 14:52:45 CRANE ENGINEER CPT-69224 Venipuncture Draw Fee 14:06:30 CRANE ENGINEER CPT-000 Give Appropriate Flu Vaccine 14:18:34 CRANE ENGINEER 2 CPT-38409 Administration single or combination vac cine inc oral 14:46:00 CRANE ENGINEER CPT-07125 Influenza split virus > age 3 14:46:00 CRANE ENGINEER CPT-OV Office Visit 19:13:16 CDT CPT-46166 Zostavax 18:41:56 CDT CPT-97845 Administration single or combination vac cine inc oral 12:56:39 CDT CPT-41363 Zoster Vaccine (Zostavax) 12:56:39 CDT 2012 CPT-15470 Venipuncture Draw Fee 10:58:57 CDT CPT-47133 Sono pelvis non OB uterus ovaries cervix 17:45:04 CDT CPT-81438 Sono retroperitoneal complete kidneys an d bladder 17:14:36 CDT CPT-OV Office Visit 14:59:38 CRANE ENGINEER CPT-J1070 Depo Testosterone 100 mg 14:50:13 CDT 03/05 CPT-02243 Abx/Therapy Injection 14:50:13 CDT CPT-33789 Administration single or combination vac cine inc oral 14:34:43 CDT CPT-54381 Influenza split virus > age 3 14:34:43 CDT CPT-J1070 Depo Testosterone 100 mg 17:37:13 CDT 01/11 CPT-85394 Abx/Therapy Injection 17:37:13 CDT CPT-92228 Venipuncture Draw Fee 16:30:13 CDT CPT-66618 Venipuncture Draw Fee 16:29:43 CDT CPT-J1070 Depo Testosterone 100 mg 14:45:38 CDT 01/11
--- OUTSIDE RECORDS SUMMARY | 2019-10-27 12:13 | XMS REPORT | Clinical Summary ---
Author Author Admin, Elba Lance [facility] Address Unknown Phone Unavailable Allergies, [...] Morbid obesity due to excess calories 278.01 [facility] t Baltazar Childers MD Morbid obesity Obesity Class II (BMI 35-39.9) 278.01 Refinement 10/26 Baltazar Childers MD Morbid obesity Morbid obesity due to excess calories 278.01 [facility] t Baltazar Childers MD Morbid [...] ronary atherosclerosis of unspecified type of vessel, [place] or graft OTH NONSPC ABN FINDNG RAD&OTH [...] Instructions Start Date Stop Date Generic Name [facility] Status Provider Patient Instruction TRUE METRIX B/G TEST STRIPS 25'S TEST BLOOD SUGAR TWICE DAILY 03/02 GLUCOSE BLOOD 51950835623 Active KENDALL Juarez Active ONGLYZA 2.5MG TABLETS TAKE 1 TABLET BY MOUTH DAILY FOR DIABETES 201 02/01/09 SAXAGLIPTIN HCL 17141400747 Active KENDALL Juarez Active LEVOTHYROXINE 0.112MG (112MCG) TABS TAKE 1 TABLET BY MOUTH EVERY DAY LEVOTHYROXINE SODIUM 99329711851 Active Beth CarrKENDALL Active AMLODIPINE BESYLATE 5MG TABLETS TAKE 1 TABLET BY MOUTH EVERY DAY FOR HYPERTENSION AMLODIPINE BESYLATE 62755306880 Active KENDALL Acosta Active LANTUS SOLOSTAR 100 UNIT/ML SUBCUTANEOUS SOLUTION PEN- INJECTOR 20 units am and 13 units at night INSULIN GLARGINE 85262005887 Active Baltazar Childers MD Active TRAMADOL HCL 50 MG ORAL TABLET 1 twice a day as needed for pain TRAMADOL HCL 76044925102 No Longer Active Baltazar Childers MD Active ROBAXIN 500 MG ORAL TABLET Take 1.5 (one and one half) tabs once daily METHOCARBAMOL 36096910784 Active Baltazar Childers MD Active TRUE METRIX AIR GLUCOSE METER DEVICE Use as directed BLOOD GLUCOSE MONITORING SUPPL 84188164568 Active Baltazar Childers MD Activ e NORTRIPTYLINE HCL 50 MG ORAL CAPSULE 1 twice a day for neuropathy 2 NORTRIPTYLINE HCL 54824467928 Active Baltazar Childers MD Acti ve ASPIRIN 81 MG TBEC Take one (1) tablet by mouth daily ASPIRIN 27739290353 Active Baltazar Childers MD Active GABAPENTIN 300 MG ORAL CAPSULE 1 three times a day 201 12/03/26 GABAPENTIN 14558780237 No Longer Active Baltazar Childers MD Activ e LISINOPRIL 20 MG ORAL TABLET 1 tablet by mouth daily at night 2016 LISINOPRIL 37391892972 Active Baltazar Childers MD Active ZITHROMAX Z-ISAIAS 250 MG ORAL TABLET Take two tablets to day and then 1 tablet daily for 4 days AZITHROMYCIN 81242239077 No Longer A ctive Baltazar Childers MD Active GLIPIZIDE 10 MG ORAL TABLET take 2 tablets twice daily GLIPIZIDE 55631973392 Active Baltazar Childers MD Active SUCRALFATE 1 GM ORAL TABLET 1 four times a day to coat the stoma ch SUCRALFATE 06935032258 No Longer Active Baltazar Childers MD Active PEN NEEDLES 31G X 6 MM use 1 daily INSULIN PEN NE EDLE 90544240855 Active KENDALL Juarez Active TOUJEO SOLOSTAR 300 UNIT/ML SUBCUTANEOUS SOLUTION PEN- INJECTOR 10 units SC daily INSULIN GLARGINE 52951596156 No Longer Active Rola ARGUETA Active NAPROXEN SODIUM 220 MG ORAL TABLET 1 three times a day as needed NAPROXEN SODIUM 26512133148 No Longer Active Baltazar Childers MD Active ATORVASTATIN CALCIUM 20 MG ORAL TABLET Take 1 tab daily ATORVASTATIN CALCIUM 06322196125 Active Baltazar Childers MD A ctive FUROSEMIDE 40 MG ORAL TABLET Take one by mouth daily FUROSEMIDE 68388006907 Active Baltazar Childers MD Active LISINOPRIL 20 MG ORAL TABLET Take one by mouth daily at bedtime LISINOPRIL 02667289440 No Longer Active Baltazar Childers MD Active ONETOUCH ULTRA BLUE IN VITRO STRIP Test twice a day 07/11/11 GLUCOSE BLOOD 51741376154 No Longer Active Baltazar Childers MD Acti ve TRUEPLUS LANCETS 33G Test twice a day LANCETS 0012936 4759 Active KENDALL Juarez Active TRUEDRAW LANCING DEVICE Test twice a day LANCET DEVICES 63396404859 Active Baltazar Childers MD Active TRUETRACK BLOOD GLUCOSE w/Device KIT Test twice a day BLOOD GLUCOSE MONITORING SUPPL 75888089188 Active Baltazar Childers MD Activ e HYDROCODONE-ACETAMINOPHEN 7.5-325 MG ORAL TABLET Take 1 tab every 6-8 hours PRN HYDROCODONE-ACETAMINOPHEN 05766601494 Active Baltazar Nickerson MD Active GABAPENTIN 300 MG ORAL CAPSULE 1 po qd x 2 days, then 1 po BID x 2 days, then 1 po TID GABAPENTIN 78518933642 No Longer Active Baltazar Childers MD Active NAPROXEN 500 MG ORAL TABLET 1 tablet by mouth twice daily NAPROXEN 56366498680 No Longer Active Baltazar Childers MD Active PROAIR HFA 108 (90 Base) MCG/ACT INHALATION AEROSOL SO LUTION 2 puffs four times a day as needed ALBUTEROL SULFATE 77216748185 Active Shun Arellano LPN Active DEPO-TESTOSTERONE 200 MG/ML INTRAMUSCULAR SOLUTION as directed TESTOSTERONE CYPIONATE 38850593333 No Longer Active Baltazar Childers MD Active LIPITOR 20 MG ORAL TABLET Take one by mouth daily in evening ATORVASTATIN CALCIUM 16097045508 No Longer Active Baltazar Childers MD Active CRESTOR 10 MG ORAL TABLET 1 by mouth every day ROSUVASTATIN CALCIUM 44813707616 No Longer Active Baltazar Childers MD Active PHENTERMINE HCL 37.5 MG ORAL TABLET Take one by mouth daily PHENTERMINE HCL 02154356716 No Longer Active Baltazar Childers MD Ac tive TIZANIDINE HCL 4 MG ORAL TABLET 1 daily as needed for muscle spa sm TIZANIDINE HCL 78135642237 No Longer Active Dawna Salazar RN Active [id number] 50-325-40 MG ORAL TABLET 1 fo ur times a day as needed for heacache [id number] 61216693086 Active KENDALL Juarez Active SUMATRIPTAN SUCCINATE 100 MG ORAL TABLET 1 tablet by m outh at onset of migraine as needed SUMATRIPTAN SUCCINATE 60983780018 Active Baltazar Nickerson MD Active LORATADINE 10 MG ORAL TABLET Take one by mouth daily LORATADINE 85573120278 Active Baltazar Childers MD Active OMEPRAZOLE 20 MG ORAL CAPSULE DELAYED RELEASE Take one by mouth jostin ly OMEPRAZOLE 94606097122 Active Baltazar Cihlders MD Active HYDROXYZINE HCL 25 MG ORAL TABLET Take one by mouth daily HYDROXYZINE HCL 19819469718 Active Baltazar Childers MD Active ALPRAZOLAM 1 MG ORAL TABLET 1 tablet by mouth daily at [facility] ALPRAZOLAM 59679177446 Active Baltazar Childers MD Active METFORMIN HCL 1000 MG ORAL TABLET Take one by mouth twice daily METFORMIN HCL 58097146877 Active Baltazar Childers MD Active TIZANIDINE HCL 4 MG ORAL TABLET 1 daily as needed for muscle spa sm TIZANIDINE HCL 4 MG ORAL TABLET 191065 TIZANIDINE HCL Inactive PHENTERMINE HCL 37.5 MG ORAL TABLET Take one by mouth daily PHENTERMINE HCL 37.5 MG ORAL TABLET 955760 PHENTERMINE HCL Inac tive CRESTOR 10 MG ORAL TABLET 1 by mouth every day CRESTOR 10 MG ORAL TABLET 280430 ROSUVASTATIN CALCIUM Inactive LIPITOR 20 MG ORAL TABLET Take one by mouth daily in evening LIPITOR 20 MG ORAL TABLET 171957 ATORVASTATIN CALCIUM Inactive DEPO-TESTOSTERONE 200 MG/ML INTRAMUSCULAR SOLUTION as directed DEPO-TESTOSTERONE 200 MG/ML INTRAMUSCULAR SOLUTION 9650190 RUFINO TOSTERONE CYPIONATE Inactive NAPROXEN 500 MG ORAL TABLET 1 tablet by mouth twice daily NAPROXEN 500 MG ORAL TABLET 047982 NAPROXEN Inactive GABAPENTIN 300 MG ORAL CAPSULE 1 po qd x 2 days, then 1 po BID x 2 days, then 1 po TID GABAPENTIN 300 MG ORAL CAPSULE 407239 GABAP ENTIN Inactive ONETOUCH ULTRA BLUE IN VITRO STRIP Test twice a day 07/11/11 ONETOUCH ULTRA BLUE IN VITRO STRIP GLUCOSE BLOOD Inact amie NAPROXEN SODIUM 220 MG ORAL TABLET 1 three times a day as needed NAPROXEN SODIUM 220 MG ORAL TABLET 91778028087 NAPROXEN SODI UM Inactive TOUJEO SOLOSTAR 300 UNIT/ML SUBCUTANEOUS SOLUTION PEN- INJECTOR 10 units SC daily TOUJEO SOLOSTAR 300 UNIT/ML SUBCUTANEOUS SOLUTION PEN-INJECTOR INSULIN GLARGINE Inactive SUCRALFATE 1 GM ORAL TABLET 1 four times a day to coat the stoma ch SUCRALFATE 1 GM ORAL TABLET 821954 SUCRALFATE Inac tive GABAPENTIN 300 MG ORAL CAPSULE 1 three times a day 201 12/03/26 GABAPENTIN 300 MG ORAL CAPSULE 075912 GABAPENTIN Inactive TRAMADOL HCL 50 MG ORAL TABLET 1 twice a day as needed for pain TRAMADOL HCL 50 MG ORAL TABLET 227609 TRAMADOL HCL I nactive ZITHROMAX Z-ISAIAS 250 MG ORAL TABLET Take two tablets to day and then 1 tablet daily for 4 days ZITHROMAX Z-ISAIAS 250 MG ORAL TAB LET 661910 AZITHROMYCIN Inactive Immunizations Vaccine Administration Date Value Standard Floyd cription influenza immunization (Flu Vax) has been administered 05/11 Done according to patient influenza virus vaccine, unspecified for mulation pneumococcal immunization administered Pneumovax 23 [CVX33] pneumococcal polysaccharide vaccine, 23 valent Seasonal influenza vaccine, injectable, containing preservative, for > 3 years old (Afluria, FluLaval, Fluzone, Fluvirin, Fluarix, Agriflu(>= 18 yo)) Fluzone (>3 yrs.) [[id number]] Influenza, seasonal, inject able Seasonal influenza vaccine, injectable, containing preservative, for > 3 years old (Afluria, FluLaval, Fluzone, Fluvirin, Fluarix, Agriflu(>= 18 yo)) Fluzone (>3 yrs.) [[id number]] Influenza, seasonal, inject able Vital Signs Date [...] - Chem istry sodium, serum 136 mmol/L 232-964 0542/06/04 potassium, serum 4.9 mmol/L 3.5-5.2 chloride, serum 97 mmol/L 98-107 carbon dioxide, venous blood 35.3 mmol/L 21.0-32 .0 blood glucose 239 mg/dL 65-95 calcium, serum 10.6 mg/dL 8.5-10.1 urea nitrogen, blood 31 mg/dL 7-18 creatinine, serum 2.33 mg/dL 0.60-1.30 Estimated Glomerular Filtration Rate (calc) 23 (?) mL/min/1.73m2 = OR > 60 mL/min sodium, serum 141 mmol/L 292-807 9712/07/09 potassium, serum 4.9 mmol/L 3.5-5.2 chloride, serum [...] 0.40 mg/dL 0.00-1.00 cholesterol, serum 218 mg/dL 725-425 7162/12/18 triglyceride, serum, fasting 357 mg/dL 30-200 HDL cholesterol, serum 49 mg/dL 32-60 LDL cholesterol, serum 103.00 mg/dL 5.00-130.00 hemoglobin A1C, blood, as % of total hemoglobin 8.5 % 4.3-6.0 sodium, serum 142 mmol/L 920-472 3443/12/18 carbon dioxide, venous blood 32.5 mmol/L 21.0-32 [...] Ordered Encounters Code Encounter Date Provider Facility CPT-60259 58440-Hpc Vst-Est Level V 14:28:39 CDT Aneudy Childers MD [facility] CPT-46821 15749-Gcc Vst-Est Level IV 15:03:32 CDT Charlie Childers MD [facility] CPT-03905 00823-Kes Vst-Est Level III 15:51:57 CDT Baltazar Childers MD [facility] CPT-33027 75153-Urs Vst-Est Level IV 15:14:58 CDT Charlie Childers MD [facility] CPT-11349 85903-Uqq Vst-Est Level IV 15:12:52 [employer] Charlie Childers MD [facility] CPT-09548 37892-Zpt Vst-Est Level IV 15:30:55 [employer] Charlie Childers MD [facility] CPT-73053 41099-Kot Vst-Est Level IV 13:49:06 C ELIOT Martinez PA-C [facility] CPT-48052 Level 4 Est. Patient 17:26:08 CDT Ann trujillo PA-C [facility] CPT-77550 62145-Guf Vst-Est Level V 14:26:27 CDT Aneudy Childers MD [facility]-41364 Level 4 Est. Patient 17:05:37 CDT Baltazar Childers MD [facility] CPT-84223 Level 4 Est. Patient 16:21:19 [employer] Baltazar Childers MD [facility]-95080 Level 4 Est. Patient 12:25:11 CDT Baltazar Childers MD [facility]-86805 Level 4 Est. Patient 14:22:31 CDT Baltazar Childers MD [facility]-96046 Level 4 Est. Patient 15:44:38 CDT [facility] CPT-78259 Level 4 Est. Patient 11:34:17 CDT Baltazar Childers MD [facility] CPT-00554 Level 3 Est. Patient 16:40:40 CDT Baltazar Childers MD [facility]-36295 Level 4 Est. Patient 10:41:24 CDT Baltazar Childers MD [facility] CPT-60611 Level 4 Est. Patient 16:01:48 CDT Baltazar Childers MD [facility] CPT-53527 Level 4 Est. Patient 16:54:07 [employer] Baltazar Childers MD [facility]-25859 Level 4 Est. Patient 15:42:12 CDT Baltazar Childers MD [facility] CPT-19961 Level 4 Est. Patient 11:29:55 CDT Baltazar Childers MD [facility] CPT-93810 Level 4 Est. Patient 14:15:19 CDT Baltazar Childers MD [facility] CPT-69519 Level 4 Est. Patient 12:20:13 CDT Baltazar Childers MD [facility] CPT-06479 Level 4 Est. Patient 14:52:45 [employer] Baltazar Childers MD [facility] CPT-57168 Level 4 Est. Patient 14:18:34 [employer] Baltazar Childers MD [facility] CPT-42186 Level 4 Est. Patient 15:18:29 CDT Baltazar Childers MD [facility] CPT-41867 Level 3 Est. Patient 12:45:34 CDT Baltazar Childers MD [facility] CPT-82357 Level 3 Est. Patient 10:10:11 CDT Baltazar Childers MD [facility] CPT-11866 Level 3 Est. Patient 14:07:50 CDT Baltazar Childers MD [facility] CPT-14075 Level 4 Est. Patient 12:26:10 [employer] Baltazar Childers MD [facility] CPT-36868 Level 4 Est. Patient 14:45:38 CDT Baltazar Childers MD [facility] CPT-18332 Level 4 New Patient 12:30:48 CDT Baltazar hinton MD [facility] Procedures Code Procedure Name Date Entry Date Standard Desc ription CPT-41252 4M Drug Screen cup test, Multi-panel, urine 2018 14:28:39 CDT CPT-52061 Venipuncture Draw Fee 15:19:00 CDT CPT-000 Give Appropriate Flu Vaccine 12:25:14 CDT 2 CPT-47424 First Vx - Ix admin via ID I M or jet injects without counseling by physician 13:08:59 CDT CPT-33710 Fluzone Quadrivalent Intramuscular Suspe nsion 0.5 ML 13:08:59 CDT CPT-29373 Venipuncture Draw Fee 12:04:12 CDT CPT-61743 Lipid - LAB USE ONLY 17:39:15 [employer] 9 CPT-84032 HGBA1C - LAB USE ONLY 17:39:15 [employer] CPT-73642 CMP - LAB USE ONLY 17:39:14 [employer] CPT-69617 Venipuncture Draw Fee 17:39:14 [employer] CPT-75060 First Vx - Ix admin via ID I M or jet injects without counseling by physician 16:55:17 [employer] CPT-69144 Fluzone Quadrivalent Intramuscular Suspe nsion 0.5 ML 16:55:17 [employer] CPT-12254 Renal Panel - LAB USE ONLY 17:39:20 CDT 201 10/31/07 CPT-41979 CBC - LAB USE ONLY 17:39:20 CDT CPT-19075 Venipuncture Draw Fee 17:39:20 CDT CPT-60121 Venipuncture Draw Fee 14:33:30 CDT CPT-69304 Renal Panel - LAB USE ONLY 14:33:30 CDT 201 10/31/07 CPT-47709 CBC - LAB USE ONLY 14:33:29 CDT CPT-58237 Venipuncture Draw Fee 14:50:21 [employer] CPT-35111 Immunization Single Admin 17:35:35 CDT 2014 CPT-93865 Fluzone Quadrivalent preservative free ( >=3yrs.) 17:35:35 CDT CPT-81406 Venipuncture Draw Fee 12:10:27 [employer] CPT-49569 Fluzone Quadrivalent Intramuscular Suspe nsion 0.5 ML 10:49:13 CDT CPT-91546 First Vx Component - Ix admi n via ID IM or jet inj without physician counseling 15:17:19 [employer] CPT-09827 Pneumovax 23 15:17:19 [employer] CPT-79864 Pneumovax 14:52:45 [employer] CPT-91838 Venipuncture Draw Fee 14:06:30 [employer] CPT-000 Give Appropriate Flu Vaccine 14:18:34 [employer]CH[employer] 2 CPT-04708 Administration single or combination vac cine inc oral 14:46:00 [employer] CPT-71779 Influenza split virus > age 3 14:46:00 [employer] CPT-OV Office Visit 19:13:16 CDT CPT-33384 Zostavax 18:41:56 CDT CPT-82298 Administration single or combination vac cine inc oral 12:56:39 CDT CPT-45512 Zoster Vaccine (Zostavax) 12:56:39 CDT 2012 CPT-70452 Venipuncture Draw Fee 10:58:57 CDT CPT-54431 Sono pelvis non OB uterus ovaries cervix 17:45:04 CDT CPT-00335 Sono retroperitoneal complete kidneys an d bladder 17:14:36 CDT CPT-OV Office Visit 14:59:38 [employer] CPT-J1070 Depo Testosterone 100 mg 14:50:13 CDT 03/05 CPT-34352 Abx/Therapy Injection 14:50:13 CDT CPT-49036 Administration single or combination vac cine inc oral 14:34:43 CDT CPT-86579 Influenza split virus > age 3 14:34:43 CDT CPT-J1070 Depo Testosterone 100 mg 17:37:13 CDT 01/11 CPT-67705 Abx/Therapy Injection 17:37:13 CDT CPT-48111 Venipuncture Draw Fee 16:30:13 CDT CPT-96310 Venipuncture Draw Fee 16:29:43 CDT CPT-J1070 Depo Testosterone 100 mg 14:45:38 CDT 01/11
--- OUTSIDE RECORDS SUMMARY | 2019-10-27 12:13 | XMS REPORT | Clinical Summary ---
Author Author Admin, Elba Lance [facility] Address [...] Instructions Start Date Stop Date Generic Name [facility] Status Provider Patient Instruction GLIPIZIDE 10MG TABLETS TAKE 2 TABLETS BY MOUTH TWICE DAILY GLIPIZIDE 12333332460 Active KENDALL Juarez Active TRUE METRIX B/G TEST STRIPS 25'S TEST BLOOD SUGAR TWICE DAILY 03/02 GLUCOSE BLOOD 41927648375 Active KENDALL Juarez Active ONGLYZA 2.5MG TABLETS TAKE 1 TABLET BY MOUTH DAILY FOR DIABETES 201 02/01/09 SAXAGLIPTIN HCL 74191793943 Active KENDALL Juarez Active LEVOTHYROXINE 0.112MG (112MCG) TABS TAKE 1 TABLET BY MOUTH EVERY DAY LEVOTHYROXINE SODIUM 65615526099 Active KENDALL Juarez Active AMLODIPINE BESYLATE 5MG TABLETS TAKE 1 TABLET BY MOUTH EVERY DAY FOR HYPERTENSION AMLODIPINE BESYLATE 40431505229 Active KENDALL Acosta Active LANTUS SOLOSTAR 100 UNIT/ML SUBCUTANEOUS SOLUTION PEN- INJECTOR 20 units am and 13 units at night INSULIN GLARGINE 13438429183 Active Baltazar Childers MD Active TRAMADOL HCL 50 MG ORAL TABLET 1 twice a day as needed for pain TRAMADOL HCL 11563752098 No Longer Active Baltazar Childers MD Active ROBAXIN 500 MG ORAL TABLET Take 1.5 (one and one half) tabs once daily METHOCARBAMOL 59238246101 Active Baltazar Childers MD Active TRUE METRIX AIR GLUCOSE METER DEVICE Use as directed BLOOD GLUCOSE MONITORING SUPPL 89126003884 Active Baltazar Childers MD Activ e NORTRIPTYLINE HCL 50 MG ORAL CAPSULE 1 twice a day for neuropathy 2 NORTRIPTYLINE HCL 05738836185 Active Baltazar Childers MD Acti ve ASPIRIN 81 MG TBEC Take one (1) tablet by mouth daily ASPIRIN 46585763641 Active Baltazar Childers MD Active GABAPENTIN 300 MG ORAL CAPSULE 1 three times a day 201 12/03/26 GABAPENTIN 77739127925 No Longer Active Baltazar Childers MD Activ e LISINOPRIL 20 MG ORAL TABLET 1 tablet by mouth daily at night 2016 LISINOPRIL 92479786067 Active Baltazar Childers MD Active ZITHROMAX Z-ISAIAS 250 MG ORAL TABLET Take two tablets to day and then 1 tablet daily for 4 days AZITHROMYCIN 05932033076 No Longer A ctive Baltazar Childers MD Active SUCRALFATE 1 GM ORAL TABLET 1 four times a day to coat the stoma ch SUCRALFATE 45344457317 No Longer Active Baltazar Childers MD Active PEN NEEDLES 31G X 6 MM use 1 daily INSULIN PEN NE EDLE 36341883909 Active KENDALL Juarez Active TOUJEO SOLOSTAR 300 UNIT/ML SUBCUTANEOUS SOLUTION PEN- INJECTOR 10 units SC daily INSULIN GLARGINE 46216476204 No Longer Active Rola ARGUETA Active NAPROXEN SODIUM 220 MG ORAL TABLET 1 three times a day as needed NAPROXEN SODIUM 07116436881 No Longer Active Baltazar Childers MD Active ATORVASTATIN CALCIUM 20 MG ORAL TABLET Take 1 tab daily ATORVASTATIN CALCIUM 89558681687 Active Baltazar Childers MD A ctive FUROSEMIDE 40 MG ORAL TABLET Take one by mouth daily FUROSEMIDE 92170018282 Active Baltazar Childers MD Active LISINOPRIL 20 MG ORAL TABLET Take one by mouth daily at bedtime LISINOPRIL 46547151528 No Longer Active Baltazar Childers MD Active ONETOUCH ULTRA BLUE IN VITRO STRIP Test twice a day 07/11/11 GLUCOSE BLOOD 19795624431 No Longer Active Baltazar Childers MD Acti ve TRUEPLUS LANCETS 33G Test twice a day LANCETS 0555076 1090 Active KENDALL Juarez Active TRUEDRAW LANCING DEVICE Test twice a day LANCET DEVICES 79814196652 Active Baltazar Childers MD Active TRUETRACK BLOOD GLUCOSE w/Device KIT Test twice a day BLOOD GLUCOSE MONITORING SUPPL 46392251018 Active Baltazar Childers MD Activ e HYDROCODONE-ACETAMINOPHEN 7.5-325 MG ORAL TABLET Take 1 tab every 6-8 hours PRN HYDROCODONE-ACETAMINOPHEN 22701761664 Active Baltazar Nickerson MD Active GABAPENTIN 300 MG ORAL CAPSULE 1 po qd x 2 days, then 1 po BID x 2 days, then 1 po TID GABAPENTIN 89990695214 No Longer Active Baltazar Childers MD Active NAPROXEN 500 MG ORAL TABLET 1 tablet by mouth twice daily NAPROXEN 42183393833 No Longer Active Baltazar Childers MD Active PROAIR HFA 108 (90 Base) MCG/ACT INHALATION AEROSOL SO LUTION 2 puffs four times a day as needed ALBUTEROL SULFATE 52987632149 Active Shun Arellano LPN Active DEPO-TESTOSTERONE 200 MG/ML INTRAMUSCULAR SOLUTION as directed TESTOSTERONE CYPIONATE 71169896068 No Longer Active Baltazar Childers MD Active LIPITOR 20 MG ORAL TABLET Take one by mouth daily in evening ATORVASTATIN CALCIUM 14995361417 No Longer Active Baltazar Childers MD Active CRESTOR 10 MG ORAL TABLET 1 by mouth every day ROSUVASTATIN CALCIUM 40863289053 No Longer Active Baltazar Childers MD Active PHENTERMINE HCL 37.5 MG ORAL TABLET Take one by mouth daily PHENTERMINE HCL 78378986670 No Longer Active Baltazar Childers MD Ac tive TIZANIDINE HCL 4 MG ORAL TABLET 1 daily as needed for muscle spa sm TIZANIDINE HCL 21099468565 No Longer Active Dawna Salazar RN Active [id number] 50-325-40 MG ORAL TABLET 1 fo ur times a day as needed for heacache [id number] 06712375427 Active KENDALL Juarez Active SUMATRIPTAN SUCCINATE 100 MG ORAL TABLET 1 tablet by m outh at onset of migraine as needed SUMATRIPTAN SUCCINATE 66252071922 Active Baltazar Nickerson MD Active LORATADINE 10 MG ORAL TABLET Take one by mouth daily LORATADINE 57093078089 Active Baltazar Childers MD Active OMEPRAZOLE 20 MG ORAL CAPSULE DELAYED RELEASE Take one by mouth jostin ly OMEPRAZOLE 35841875065 Active Baltazar Childers MD Active HYDROXYZINE HCL 25 MG ORAL TABLET Take one by mouth daily HYDROXYZINE HCL 70575806488 Active Baltazar Childers MD Active ALPRAZOLAM 1 MG ORAL TABLET 1 [facility] 60865956775 Active Baltazar Childers MD Active METFORMIN HCL 1000 MG ORAL TABLET Take one by mouth twice daily METFORMIN HCL 74323740066 Active Baltazar Childers MD Active TIZANIDINE HCL 4 MG ORAL TABLET 1 daily as needed for muscle spa sm TIZANIDINE HCL 4 MG ORAL TABLET 362757 TIZANIDINE HCL Inactive PHENTERMINE HCL 37.5 MG ORAL TABLET Take one by mouth daily PHENTERMINE HCL 37.5 MG ORAL TABLET 731439 PHENTERMINE HCL Inac tive CRESTOR 10 MG ORAL TABLET 1 by mouth every day CRESTOR 10 MG ORAL TABLET 165632 ROSUVASTATIN CALCIUM Inactive LIPITOR 20 MG ORAL TABLET Take one by mouth daily in evening LIPITOR 20 MG ORAL TABLET 964254 ATORVASTATIN CALCIUM Inactive DEPO-TESTOSTERONE 200 MG/ML INTRAMUSCULAR SOLUTION as directed DEPO-TESTOSTERONE 200 MG/ML INTRAMUSCULAR SOLUTION 3212279 RUFINO TOSTERONE CYPIONATE Inactive NAPROXEN 500 MG ORAL TABLET 1 tablet by mouth twice daily NAPROXEN 500 MG ORAL TABLET 596718 NAPROXEN Inactive GABAPENTIN 300 MG ORAL CAPSULE 1 po qd x 2 days, then 1 po BID x 2 days, then 1 po TID GABAPENTIN 300 MG ORAL CAPSULE 591688 GABAP ENTIN Inactive ONETOUCH ULTRA BLUE IN VITRO STRIP Test twice a day 07/11/11 ONETOUCH ULTRA BLUE IN VITRO STRIP GLUCOSE BLOOD Inact amie NAPROXEN SODIUM 220 MG ORAL TABLET 1 three times a day as needed NAPROXEN SODIUM 220 MG ORAL TABLET 53711864322 NAPROXEN SODI UM Inactive TOUJEO SOLOSTAR 300 UNIT/ML SUBCUTANEOUS SOLUTION PEN- INJECTOR 10 units SC daily TOUJEO SOLOSTAR 300 UNIT/ML SUBCUTANEOUS SOLUTION PEN-INJECTOR INSULIN GLARGINE Inactive SUCRALFATE 1 GM ORAL TABLET 1 four times a day to coat the stoma ch SUCRALFATE 1 GM ORAL TABLET 470035 SUCRALFATE Inac tive GABAPENTIN 300 MG ORAL CAPSULE 1 three times a day 201 12/03/26 GABAPENTIN 300 MG ORAL CAPSULE 014857 GABAPENTIN Inactive TRAMADOL HCL 50 MG ORAL TABLET 1 twice a day as needed for pain TRAMADOL HCL 50 MG ORAL TABLET 957366 TRAMADOL HCL I nactive ZITHROMAX Z-ISAIAS 250 MG ORAL TABLET Take two tablets to day and then 1 tablet daily for 4 days ZITHROMAX Z-ISAIAS 250 MG ORAL TAB LET 474263 AZITHROMYCIN Inactive Immunizations Vaccine Administration Date Value Standard Floyd cription influenza immunization (Flu Vax) has been administered 05/11 Done according to patient influenza virus vaccine, unspecified for mulation pneumococcal immunization administered Pneumovax 23 [CVX33] pneumococcal polysaccharide vaccine, 23 valent Seasonal influenza vaccine, injectable, containing preservative, for > 3 years old (Afluria, FluLaval, Fluzone, Fluvirin, Fluarix, Agriflu(>= 18 yo)) Fluzone (>3 yrs.) [[id number]] Influenza, seasonal, inject able Seasonal influenza vaccine, injectable, containing preservative, for > 3 years old (Afluria, FluLaval, Fluzone, Fluvirin, Fluarix, Agriflu(>= 18 yo)) Fluzone (>3 yrs.) [[id number]] Influenza, seasonal, inject able Vital Signs Date [...] - Chem istry sodium, serum 136 mmol/L 019-545 7036/06/04 potassium, serum 4.9 mmol/L 3.5-5.2 chloride, serum 97 mmol/L 98-107 carbon dioxide, venous blood 35.3 mmol/L 21.0-32 .0 blood glucose 239 mg/dL 65-95 calcium, serum 10.6 mg/dL 8.5-10.1 urea nitrogen, blood 31 mg/dL 7-18 creatinine, serum 2.33 mg/dL 0.60-1.30 Estimated Glomerular Filtration Rate (calc) 23 (?) mL/min/1.73m2 = OR > 60 mL/min sodium, serum 141 mmol/L 755-905 9663/07/09 potassium, serum 4.9 mmol/L 3.5-5.2 chloride, serum [...] 0.40 mg/dL 0.00-1.00 cholesterol, serum 218 mg/dL 100-062 7581/12/18 triglyceride, serum, fasting 357 mg/dL 30-200 HDL cholesterol, serum 49 mg/dL 32-60 LDL cholesterol, serum 103.00 mg/dL 5.00-130.00 hemoglobin A1C, blood, as % of total hemoglobin 8.5 % 4.3-6.0 sodium, serum 142 mmol/L 433-835 2511/12/18 carbon dioxide, venous blood 32.5 mmol/L 21.0-32 [...] Ordered Encounters Code Encounter Date Provider Facility CPT-02162 [id number] Vst-Est Level V 14:28:39 CDT Aneudy Childers MD [facility] CPT-06389 [id number] Vst-Est Level IV 15:03:32 CDT Charlie Childers MD [facility] CPT-69262 [id number] Vst-Est Level III 15:51:57 CDT Baltazar Childers MD [facility] CPT-31283 24496-Gte Vst-Est Level IV 15:14:58 CDT Charlie Childers MD [facility] CPT-60724 51430-Tir Vst-Est Level IV 15:12:52 COUNTER HELP Charlie Childers MD [facility] CPT-74415 45530-Yzs Vst-Est Level IV 15:30:55 COUNTER HELP Charlie Childers MD [facility] CPT-62188 22960-Pwk Vst-Est Level IV 13:49:06 C DT Ann Michelle [facility]-64446 Level 4 Est. Patient 17:26:08 CDT Ann trujillo [facility]-44699 28042-Zvc Vst-Est Level V 14:26:27 CDT Aneudy Childers MD [facility] CPT-62728 Level 4 Est. Patient 17:05:37 CDT Baltazar Childers MD [facility]-96818 Level 4 Est. Patient 16:21:19 COUNTER HELP Baltazar Childers MD [facility]-46601 Level 4 Est. Patient 12:25:11 CDT Baltazar Childers MD [facility]-42500 Level 4 Est. Patient 14:22:31 CDT Baltazar Childers MD [facility]-90396 Level 4 Est. Patient 15:44:38 [facility] Patient 11:34:17 CDT Baltazar Childers MD [facility] CPT-53470 Level 3 Est. Patient 16:40:40 CDT Baltazar Childers MD [facility]-85102 Level 4 Est. Patient 10:41:24 CDT Baltazar Childers MD [facility] CPT-46564 Level 4 Est. Patient 16:01:48 CDT Baltazar Childers MD [facility] CPT-17506 Level 4 Est. Patient 16:54:07 COUNTER HELP Baltazar Childers MD [facility]-77254 Level 4 Est. Patient 15:42:12 CDT Baltazar Childers MD [facility] CPT-43375 Level 4 Est. Patient 11:29:55 CDT Baltazar Childers MD [facility] CPT-69888 Level 4 Est. Patient 14:15:19 CDT Baltazar Childers MD [facility] CPT-15261 Level 4 Est. Patient 12:20:13 CDT Baltazar Childers MD [facility] CPT-75383 Level 4 Est. Patient 14:52:45 COUNTER HELP Baltazar Childers MD [facility] CPT-09175 Level 4 Est. Patient 14:18:34 COUNTER HELP Baltazar Childers MD [facility] CPT-99542 Level 4 Est. Patient 15:18:29 CDT Baltazar Childers MD [facility] CPT-64778 Level 3 Est. Patient 12:45:34 CDT Baltazar Childers MD [facility] CPT-13845 Level 3 Est. Patient 10:10:11 CDT Baltazar Childers MD [facility] CPT-09980 Level 3 Est. Patient 14:07:50 CDT Baltazar Childers MD [facility] CPT-75369 Level 4 Est. Patient 12:26:10 COUNTER HELP Baltazar Childers MD [facility] CPT-79543 Level 4 Est. Patient 14:45:38 CDT Baltazar Childers MD [facility] CPT-30363 Level 4 New Patient 12:30:48 CDT Baltazar hinton MD [facility] Procedures Code Procedure Name Date Entry Date Standard Desc ription CPT-66432 4M Drug Screen cup test, Multi-panel, urine 2018 14:28:39 CDT CPT-04781 Venipuncture Draw Fee 15:19:00 CDT CPT-000 Give Appropriate Flu Vaccine 12:25:14 CDT 2 CPT-37765 First Vx - Ix admin via ID I M or jet injects without counseling by physician 13:08:59 CDT CPT-16728 Fluzone Quadrivalent Intramuscular Suspe nsion 0.5 ML 13:08:59 CDT CPT-52447 Venipuncture Draw Fee 12:04:12 CDT CPT-41749 Lipid - LAB USE ONLY 17:39:15 COUNTER HELP 9 CPT-76712 HGBA1C - LAB USE ONLY 17:39:15 COUNTER HELP CPT-61593 CMP - LAB USE ONLY 17:39:14 COUNTER HELP CPT-30752 Venipuncture Draw Fee 17:39:14 COUNTER HELP CPT-45702 First Vx - Ix admin via ID I M or jet injects without counseling by physician 16:55:17 COUNTER HELP CPT-65947 Fluzone Quadrivalent Intramuscular Suspe nsion 0.5 ML 16:55:17 COUNTER HELP CPT-17690 Renal Panel - LAB USE ONLY 17:39:20 CDT 201 10/31/07 CPT-84608 CBC - LAB USE ONLY 17:39:20 CDT CPT-37819 Venipuncture Draw Fee 17:39:20 CDT CPT-35029 Venipuncture Draw Fee 14:33:30 CDT CPT-78893 Renal Panel - LAB USE ONLY 14:33:30 CDT 201 10/31/07 CPT-04481 CBC - LAB USE ONLY 14:33:29 CDT CPT-02499 Venipuncture Draw Fee 14:50:21 COUNTER HELP CPT-28621 Immunization Single Admin 17:35:35 CDT 2014 CPT-20623 Fluzone Quadrivalent preservative free ( >=3yrs.) 17:35:35 CDT CPT-25285 Venipuncture Draw Fee 12:10:27 COUNTER HELP CPT-47288 Fluzone Quadrivalent Intramuscular Suspe nsion 0.5 ML 10:49:13 CDT CPT-90457 First Vx Component - Ix admi n via ID IM or jet inj without physician counseling 15:17:19 COUNTER HELP CPT-63467 Pneumovax 23 15:17:19 COUNTER HELP CPT-42192 Pneumovax 14:52:45 COUNTER HELP CPT-73615 Venipuncture Draw Fee 14:06:30 COUNTER HELP CPT-000 Give Appropriate Flu Vaccine 14:18:34 COUNTER HELP 2 CPT-85915 Administration single or combination vac cine inc oral 14:46:00 COUNTER HELP CPT-06599 Influenza split virus > age 3 14:46:00 COUNTER HELP CPT-OV Office Visit 19:13:16 CDT CPT-91460 Zostavax 18:41:56 CDT CPT-68733 Administration single or combination vac cine inc oral 12:56:39 CDT CPT-52305 Zoster Vaccine (Zostavax) 12:56:39 CDT 2012 CPT-84786 Venipuncture Draw Fee 10:58:57 CDT CPT-98700 Sono pelvis non OB uterus ovaries cervix 17:45:04 CDT CPT-14602 Sono retroperitoneal complete kidneys an d bladder 17:14:36 CDT CPT-OV Office Visit 14:59:38 COUNTER HELP CPT-J1070 Depo Testosterone 100 mg 14:50:13 CDT 03/05 CPT-45025 Abx/Therapy Injection 14:50:13 CDT CPT-76494 Administration single or combination vac cine inc oral 14:34:43 CDT CPT-12734 Influenza split virus > age 3 14:34:43 CDT CPT-J1070 Depo Testosterone 100 mg 17:37:13 CDT 01/11 CPT-68678 Abx/Therapy Injection 17:37:13 CDT CPT-93575 Venipuncture Draw Fee 16:30:13 CDT CPT-40629 Venipuncture Draw Fee 16:29:43 CDT CPT-J1070 Depo Testosterone 100 mg 14:45:38 CDT 01/11
--- OUTSIDE RECORDS SUMMARY | 2019-10-27 12:14 | XMS REPORT | Clinical Summary ---
Author Author Admin, Elba Lance [employer] Address Unknown Phone Unavailable Allergies, Adverse Reactions, [...] unspecified hyperlipidemia CARPAL TUNNEL SYNDROME 354.0 Active aBltazar silverman MD Carpal tunnel syndrome OBESITY 278.00 [...] calories 278.01 [facility] t Batlazar Childers MD Morbid obesity Obesity Class II [...] ronary atherosclerosis of unspecified type of vessel, [place] or graft OTH NONSPC ABN FINDNG RAD&OTH [...] and 13 units at night INSULIN GLARGINE 22798903029 Active Baltazar Childers MD Active ONGLYZA 2.5 MG ORAL TABLET 1 daily for diabetes SAXAGLIPTIN HCL 28497566277 Active Baltazar Childers MD Active TRAMADOL HCL 50 MG ORAL TABLET 1 twice a day as needed for pain TRAMADOL HCL 94469809788 No Longer Active Baltazar Childers MD Active ROBAXIN 500 MG ORAL TABLET Take 1.5 (one and one half) tabs once daily METHOCARBAMOL 70889149974 Active Baltazar Childers MD Active SYNTHROID 112 MCG ORAL TABLET Take one tablet a day LEVOTHYROXINE SODIUM 42382529719 Active Baltazar Childers MD Active TRUE METRIX AIR GLUCOSE METER DEVICE Use as directed BLOOD GLUCOSE MONITORING SUPPL 93412296823 Active Baltazar Childers MD Activ e TRUE METRIX BLOOD GLUCOSE TEST IN VITRO STRIP test blood sug ar BID Dx: E11.65 GLUCOSE BLOOD 61351618817 Active KENDALL Juarez Active NORTRIPTYLINE HCL 50 MG ORAL CAPSULE 1 twice a day for neuropathy 2 NORTRIPTYLINE HCL 67619876835 Active Baltazar Childers MD Acti ve ASPIRIN 81 MG TBEC Take one (1) tablet by mouth daily ASPIRIN 57847167987 Active Baltazar Childers MD Active GABAPENTIN 300 MG ORAL CAPSULE 1 three times a day 201 12/03/26 GABAPENTIN 30673728728 No Longer Active Baltazar Childers MD Activ e LISINOPRIL 20 MG ORAL TABLET 1 tablet by mouth daily at night 2016 LISINOPRIL 88489905950 Active Baltazar Childers MD Active ZITHROMAX Z-ISAIAS 250 MG ORAL TABLET Take two tablets to day and then 1 tablet daily for 4 days AZITHROMYCIN 30317423616 No Longer A ctive Baltazar Childers MD Active AMLODIPINE BESYLATE 5 MG ORAL TABLET 1 tab daily for HTN AMLODIPINE BESYLATE 81302564870 Active Baltazar Childers MD Active GLIPIZIDE 10 MG ORAL TABLET take 2 tablets twice daily GLIPIZIDE 20386577020 Active Baltazar Childers MD Active SUCRALFATE 1 GM ORAL TABLET 1 four times a day to coat the stoma ch SUCRALFATE 35665844124 No Longer Active Baltazar Childers MD Active PEN NEEDLES 31G X 6 MM use 1 daily INSULIN PEN NE EDLE 15148421055 Active KENDALL Juarez Active TOUONOFRE SOLOSTAR 300 UNIT/ML SUBCUTANEOUS SOLUTION PEN- INJECTOR 10 units SC daily INSULIN GLARGINE 02411945259 No Longer Active Rola ARGUETA Active NAPROXEN SODIUM 220 MG ORAL TABLET 1 three times a day as needed NAPROXEN SODIUM 50267140793 No Longer Active Baltazar Childers MD Active ATORVASTATIN CALCIUM 20 MG ORAL TABLET Take 1 tab daily ATORVASTATIN CALCIUM 44672883890 Active Baltazar Childers MD A ctive FUROSEMIDE 40 MG ORAL TABLET Take one by mouth daily FUROSEMIDE 43200106363 Active Baltazar Childers MD Active LISINOPRIL 20 MG ORAL TABLET Take one by mouth daily at bedtime LISINOPRIL 41986888410 No Longer Active Baltazar Childers MD Active ONETOUCH ULTRA BLUE IN VITRO STRIP Test twice a day 07/11/11 GLUCOSE BLOOD 65222412877 No Longer Active Baltazar Childers MD Acti ve TRUEPLUS LANCETS 33G Test twice a day LANCETS 0352916 2893 Active KENDALL Juarez Active TRUEDRAW LANCING DEVICE Test twice a day LANCET DEVICES 30914906000 Active Baltazar Childers MD Active TRUETRACK BLOOD GLUCOSE w/Device KIT Test twice a day BLOOD GLUCOSE MONITORING SUPPL 67630969841 Active Baltazar Childers MD Activ e HYDROCODONE-ACETAMINOPHEN 7.5-325 MG ORAL TABLET Take 1 tab every 6-8 hours PRN HYDROCODONE-ACETAMINOPHEN 68631645744 Active Baltazar Nickerson MD Active GABAPENTIN 300 MG ORAL CAPSULE 1 po qd x 2 days, then 1 po BID x 2 days, then 1 po TID GABAPENTIN 66219363325 No Longer Active Baltazar Childers MD Active NAPROXEN 500 MG ORAL TABLET 1 tablet by mouth twice daily NAPROXEN 16887100334 No Longer Active Baltazar Childers MD Active PROAIR HFA 108 (90 Base) MCG/ACT INHALATION AEROSOL SO LUTION 2 puffs four times a day as needed ALBUTEROL SULFATE 83376098270 Active Shun Arellano LPN Active DEPO-TESTOSTERONE 200 MG/ML INTRAMUSCULAR SOLUTION as directed TESTOSTERONE CYPIONATE 59552458875 No Longer Active Baltazar Childers MD Active LIPITOR 20 MG ORAL TABLET Take one by mouth daily in evening ATORVASTATIN CALCIUM 38074175638 No Longer Active Baltazar Childers MD Active CRESTOR 10 MG ORAL TABLET 1 by mouth every day ROSUVASTATIN CALCIUM 15877882557 No Longer Active Baltazar Childers MD Active PHENTERMINE HCL 37.5 MG ORAL TABLET Take one by mouth daily PHENTERMINE HCL 70798785009 No Longer Active Baltazar Childers MD Ac tive TIZANIDINE HCL 4 MG ORAL TABLET 1 daily as needed for muscle spa sm TIZANIDINE HCL 38059214459 No Longer Active Dawna Salazar RN Active [id number] 50-325-40 MG ORAL TABLET 1 fo ur times a day as needed for heacache [id number] 58449326829 Active KENDALL Juarez Active SUMATRIPTAN SUCCINATE 100 MG ORAL TABLET 1 tablet by m outh at onset of migraine as needed SUMATRIPTAN SUCCINATE 96650539107 Active Baltazar Nickerson MD Active LORATADINE 10 MG ORAL TABLET Take one by mouth daily LORATADINE 20114449655 Active Baltazar Childers MD Active OMEPRAZOLE 20 MG ORAL CAPSULE DELAYED RELEASE Take one by mouth jostin ly OMEPRAZOLE 87949450307 Active Baltazar Childers MD Active HYDROXYZINE HCL 25 MG ORAL TABLET Take one by mouth daily HYDROXYZINE HCL 36158838956 Active Baltazar Childers MD Active ALPRAZOLAM 1 MG ORAL TABLET 1 tablet by mouth daily at bedti sc for restless leg ALPRAZOLAM 80631931957 Active Baltazar Childers MD Active METFORMIN HCL 1000 MG ORAL TABLET Take one by mouth twice daily METFORMIN HCL 59940288478 Active Baltazar Childers MD Active TIZANIDINE HCL 4 MG ORAL TABLET 1 daily as needed for muscle spa sm TIZANIDINE HCL 4 MG ORAL TABLET 634771 TIZANIDINE HCL Inactive PHENTERMINE HCL 37.5 MG ORAL TABLET Take one by mouth daily PHENTERMINE HCL 37.5 MG ORAL TABLET 653783 PHENTERMINE HCL Inac tive CRESTOR 10 MG ORAL TABLET 1 by mouth every day CRESTOR 10 MG ORAL TABLET 893754 ROSUVASTATIN CALCIUM Inactive LIPITOR 20 MG ORAL TABLET Take one by mouth daily in evening LIPITOR 20 MG ORAL TABLET 193062 ATORVASTATIN CALCIUM Inactive DEPO-TESTOSTERONE 200 MG/ML INTRAMUSCULAR SOLUTION as directed DEPO-TESTOSTERONE 200 MG/ML INTRAMUSCULAR SOLUTION 1545267 RUFINO TOSTERONE CYPIONATE Inactive NAPROXEN 500 MG ORAL TABLET 1 tablet by mouth twice daily NAPROXEN 500 MG ORAL TABLET 821758 NAPROXEN Inactive GABAPENTIN 300 MG ORAL CAPSULE 1 po qd x 2 days, then 1 po BID x 2 days, then 1 po TID GABAPENTIN 300 MG ORAL CAPSULE 013402 GABAP ENTIN Inactive ONETOUCH ULTRA BLUE IN VITRO STRIP Test twice a day 07/11/11 ONETOUCH ULTRA BLUE IN VITRO STRIP GLUCOSE BLOOD Inact amie NAPROXEN SODIUM 220 MG ORAL TABLET 1 three times a day as needed NAPROXEN SODIUM 220 MG ORAL TABLET 73548529772 NAPROXEN SODI UM Inactive TOUJEO SOLOSTAR 300 UNIT/ML SUBCUTANEOUS SOLUTION PEN- INJECTOR 10 units SC daily TOUJEO SOLOSTAR 300 UNIT/ML SUBCUTANEOUS SOLUTION PEN-INJECTOR INSULIN GLARGINE Inactive SUCRALFATE 1 GM ORAL TABLET 1 four times a day to coat the stoma ch SUCRALFATE 1 GM ORAL TABLET 999513 SUCRALFATE Inac tive GABAPENTIN 300 MG ORAL CAPSULE 1 three times a day 201 12/03/26 GABAPENTIN 300 MG ORAL CAPSULE 581633 GABAPENTIN Inactive TRAMADOL HCL 50 MG ORAL TABLET 1 twice a day as needed for pain TRAMADOL HCL 50 MG ORAL TABLET 129915 TRAMADOL HCL I nactive ZITHROMAX Z-ISAIAS 250 MG ORAL TABLET Take two tablets to day and then 1 tablet daily for 4 days ZITHROMAX Z-ISAIAS 250 MG ORAL TAB LET 311427 AZITHROMYCIN Inactive Immunizations Vaccine Administration Date Value Standard Floyd cription influenza immunization (Flu Vax) has been administered 05/11 Done according to patient influenza virus vaccine, unspecified for mulation pneumococcal immunization administered Pneumovax 23 [CVX33] pneumococcal polysaccharide vaccine, 23 valent Seasonal influenza vaccine, injectable, containing preservative, for > 3 years old (Afluria, FluLaval, Fluzone, Fluvirin, Fluarix, Agriflu(>= 18 yo)) Fluzone (>3 yrs.) [[id number]] Influenza, seasonal, inject able Seasonal influenza vaccine, injectable, containing preservative, for > 3 years old (Afluria, FluLaval, Fluzone, Fluvirin, Fluarix, Agriflu(>= 18 yo)) Fluzone (>3 yrs.) [[id number]] Influenza, seasonal, inject able Vital Signs Date [...] - Chem istry sodium, serum 136 mmol/L 848-066 4451/06/04 potassium, serum 4.9 mmol/L 3.5-5.2 chloride, serum 97 mmol/L 98-107 carbon dioxide, venous blood 35.3 mmol/L 21.0-32 .0 blood glucose 239 mg/dL 65-95 calcium, serum 10.6 mg/dL 8.5-10.1 urea nitrogen, blood 31 mg/dL 7-18 creatinine, serum 2.33 mg/dL 0.60-1.30 Estimated Glomerular Filtration Rate (calc) 23 (?) mL/min/1.73m2 = OR > 60 mL/min sodium, serum 141 mmol/L 993-743 4685/07/09 potassium, serum 4.9 mmol/L 3.5-5.2 chloride, serum [...] 0.40 mg/dL 0.00-1.00 cholesterol, serum 218 mg/dL 108-319 2129/12/18 triglyceride, serum, fasting 357 mg/dL 30-200 HDL cholesterol, serum 49 mg/dL 32-60 LDL cholesterol, serum 103.00 mg/dL 5.00-130.00 hemoglobin A1C, blood, as % of total hemoglobin 8.5 % 4.3-6.0 sodium, serum 142 mmol/L 776-733 5235/12/18 carbon dioxide, venous blood 32.5 mmol/L 21.0-32 [...] Ordered Encounters Code Encounter Date Provider Facility CPT-13919 50644-Sve Vst-Est Level V 14:28:39 CDT Aneudy Childers MD [facility] CPT-22563 88341-Syj Vst-Est Level IV 15:03:32 CDT Charlie Childers MD [facility] CPT-33293 58763-Znb Vst-Est Level III 15:51:57 CDT Baltazar Childers MD [facility] CPT-17245 16708-Abl Vst-Est Level IV 15:14:58 CDT Charlie Childers MD [facility] CPT-87289 67528-Qgp Vst-Est Level IV 15:12:52 NETWORK SYSTEMS ENGINEER Charlie Childers MD [facility] CPT-92965 98944-Mtc Vst-Est Level IV 15:30:55 NETWORK SYSTEMS ENGINEER Charlie Childers MD [facility] CPT-41538 16722-Log Vst-Est Level IV 13:49:06 C ELIOT Martinez PA-C [facility] CPT-31203 Level 4 Est. Patient 17:26:08 CDT Ann trujillo PA-C [facility]-33255 26489-Tpt Vst-Est Level V 14:26:27 CDT Aneudy Childers MD [facility]-69743 Level 4 Est. Patient 17:05:37 CDT Baltazar Childers MD [facility]-84306 Level 4 Est. Patient 16:21:19 NETWORK SYSTEMS ENGINEER Baltazar Childers MD [facility]-57140 Level 4 Est. Patient 12:25:11 CDT Baltazar Childers MD [facility]-91523 Level 4 Est. Patient 14:22:31 CDT Baltazar Childers MD [facility]-38847 Level 4 Est. Patient 15:44:38 CDT Shonna Parker APRN [facility]-89116 Level 4 Est. Patient 11:34:17 CDT Baltazar Childers MD [facility]-18542 Level 3 Est. Patient 16:40:40 CDT Baltazar Childers MD [facility]-08893 Level 4 Est. Patient 10:41:24 CDT Baltazar Childers MD [facility]-88903 Level 4 Est. Patient 16:01:48 CDT Baltazar Childers MD [facility]-92515 Level 4 Est. Patient 16:54:07 NETWORK SYSTEMS ENGINEER Baltazar Childers MD [facility]-50761 Level 4 Est. Patient 15:42:12 CDT Baltazar Childers MD [facility] CPT-14985 Level 4 Est. Patient 11:29:55 CDT Baltazar Childers MD [facility] CPT-70882 Level 4 Est. Patient 14:15:19 CDT Baltazar Childers MD [facility] CPT-72471 Level 4 Est. Patient 12:20:13 CDT Baltazar Childers MD [facility] CPT-65329 Level 4 Est. Patient 14:52:45 NETWORK SYSTEMS ENGINEER Baltazar Childers MD [facility] CPT-02666 Level 4 Est. Patient 14:18:34 NETWORK SYSTEMS ENGINEER Baltazar Childers MD [facility] CPT-40566 Level 4 Est. Patient 15:18:29 CDT Baltazar Childers MD [facility] CPT-59388 Level 3 Est. Patient 12:45:34 CDT Baltazar Childers MD [facility] CPT-15817 Level 3 Est. Patient 10:10:11 CDT Baltazar Childers MD [facility] CPT-29952 Level 3 Est. Patient 14:07:50 CDT Baltazar Childers MD [facility] CPT-54807 Level 4 Est. Patient 12:26:10 NETWORK SYSTEMS ENGINEER Baltazar Childers MD [facility] CPT-95169 Level 4 Est. Patient 14:45:38 CDT Baltazar Childers MD [facility] CPT-96210 Level 4 New Patient 12:30:48 CDT Baltazar hinton MD [facility] Procedures Code Procedure Name Date Entry Date Standard Desc ription CPT-65355 4M Drug Screen cup test, Multi-panel, urine 2018 14:28:39 CDT CPT-52398 Venipuncture Draw Fee 15:19:00 CDT CPT-000 Give Appropriate Flu Vaccine 12:25:14 CDT 2 CPT-09371 First Vx - Ix admin via ID I M or jet injects without counseling by physician 13:08:59 CDT CPT-25740 Fluzone Quadrivalent Intramuscular Suspe nsion 0.5 ML 13:08:59 CDT CPT-16906 Venipuncture Draw Fee 12:04:12 CDT CPT-50346 Lipid - LAB USE ONLY 17:39:15 NETWORK SYSTEMS ENGINEER 9 CPT-28115 HGBA1C - LAB USE ONLY 17:39:15 NETWORK SYSTEMS ENGINEER CPT-93799 CMP - LAB USE ONLY 17:39:14 NETWORK SYSTEMS ENGINEER CPT-56523 Venipuncture Draw Fee 17:39:14 NETWORK SYSTEMS ENGINEER CPT-31266 First Vx - Ix admin via ID I M or jet injects without counseling by physician 16:55:17 NETWORK SYSTEMS ENGINEER CPT-09577 Fluzone Quadrivalent Intramuscular Suspe nsion 0.5 ML 16:55:17 NETWORK SYSTEMS ENGINEER CPT-04569 Renal Panel - LAB USE ONLY 17:39:20 CDT 201 10/31/07 CPT-32969 CBC - LAB USE ONLY 17:39:20 CDT CPT-10377 Venipuncture Draw Fee 17:39:20 CDT CPT-12913 Venipuncture Draw Fee 14:33:30 CDT CPT-56174 Renal Panel - LAB USE ONLY 14:33:30 CDT 201 10/31/07 CPT-88999 CBC - LAB USE ONLY 14:33:29 CDT CPT-36420 Venipuncture Draw Fee 14:50:21 NETWORK SYSTEMS ENGINEER CPT-76945 Immunization Single Admin 17:35:35 CDT 2014 CPT-84830 Fluzone Quadrivalent preservative free ( >=3yrs.) 17:35:35 CDT CPT-46127 Venipuncture Draw Fee 12:10:27 NETWORK SYSTEMS ENGINEER CPT-75859 Fluzone Quadrivalent Intramuscular Suspe nsion 0.5 ML 10:49:13 CDT CPT-16634 First Vx Component - Ix admi n via ID IM or jet inj without physician counseling 15:17:19 NETWORK SYSTEMS ENGINEER CPT-36629 Pneumovax 23 15:17:19 NETWORK SYSTEMS ENGINEER CPT-38277 Pneumovax 14:52:45 NETWORK SYSTEMS ENGINEER CPT-76001 Venipuncture Draw Fee 14:06:30 NETWORK SYSTEMS ENGINEER CPT-000 Give Appropriate Flu Vaccine 14:18:34 NETWORK SYSTEMS ENGINEER 2 CPT-51116 Administration single or combination vac cine inc oral 14:46:00 NETWORK SYSTEMS ENGINEER CPT-16351 Influenza split virus > age 3 14:46:00 NETWORK SYSTEMS ENGINEER CPT-OV Office Visit 19:13:16 CDT CPT-59316 Zostavax 18:41:56 CDT CPT-48940 Administration single or combination vac cine inc oral 12:56:39 CDT CPT-54803 Zoster Vaccine (Zostavax) 12:56:39 CDT 2012 CPT-41873 Venipuncture Draw Fee 10:58:57 CDT CPT-57435 Sono pelvis non OB uterus ovaries cervix 17:45:04 CDT CPT-15411 Sono retroperitoneal complete kidneys an d bladder 17:14:36 CDT CPT-OV Office Visit 14:59:38 NETWORK SYSTEMS ENGINEER CPT-J1070 Depo Testosterone 100 mg 14:50:13 CDT 03/05 CPT-64608 Abx/Therapy Injection 14:50:13 CDT CPT-36259 Administration single or combination vac cine inc oral 14:34:43 CDT CPT-30900 Influenza split virus > age 3 14:34:43 CDT CPT-J1070 Depo Testosterone 100 mg 17:37:13 CDT 01/11 CPT-06072 Abx/Therapy Injection 17:37:13 CDT CPT-52410 Venipuncture Draw Fee 16:30:13 CDT CPT-78082 Venipuncture Draw Fee 16:29:43 CDT CPT-J1070 Depo Testosterone 100 mg 14:45:38 CDT 01/11
--- OUTSIDE RECORDS SUMMARY | 2019-10-27 12:14 | XMS REPORT | Clinical Summary ---
Author Author Admin, Elba Lance [facility] Address Unknown Phone Unavailable Allergies, [...] Morbid obesity due to excess calories 278.01 [facility] t Baltazar Childers MD Morbid obesity Obesity Class II (BMI 35-39.9) 278.01 Refinement 10/26 Baltazar Childers MD Morbid obesity Morbid obesity due to excess calories 278.01 [facility] t Baltazar Childers MD Morbid [...] atherosclerosis of unspecified type of vessel, [place] or graft OTH NONSPC ABN FINDNG RAD&OTH [...] Instructions Start Date Stop Date Generic Name [facility] Status Provider Patient Instruction TRUE METRIX B/G TEST STRIPS 25'S TEST BLOOD SUGAR TWICE DAILY 03/02 GLUCOSE BLOOD 67337237448 Active KENDALL Juarez Active ONGLYZA 2.5MG TABLETS TAKE 1 TABLET BY MOUTH DAILY FOR DIABETES 201 02/01/09 SAXAGLIPTIN HCL 60278531655 Active KENDALL Juarez Active LEVOTHYROXINE 0.112MG (112MCG) TABS TAKE 1 TABLET BY MOUTH EVERY DAY LEVOTHYROXINE SODIUM 97777165639 Active KENDALL Juarez Active AMLODIPINE BESYLATE 5MG TABLETS TAKE 1 TABLET BY MOUTH EVERY DAY FOR HYPERTENSION AMLODIPINE BESYLATE 58164603217 Active KENDALL Acosta Active LANTUS SOLOSTAR 100 UNIT/ML SUBCUTANEOUS SOLUTION PEN- INJECTOR 20 units am and 13 units at night INSULIN GLARGINE 80022861562 Active Baltazar Childers MD Active TRAMADOL HCL 50 MG ORAL TABLET 1 twice a day as needed for pain TRAMADOL HCL 96279942272 No Longer Active Baltazar Childers MD Active ROBAXIN 500 MG ORAL TABLET Take 1.5 (one and one half) tabs once daily METHOCARBAMOL 52306558864 Active Baltazar Childers MD Active TRUE METRIX AIR GLUCOSE METER DEVICE Use as directed BLOOD GLUCOSE MONITORING SUPPL 51951050817 Active Baltazar Childers MD Activ e NORTRIPTYLINE HCL 50 MG ORAL CAPSULE 1 twice a day for neuropathy 2 NORTRIPTYLINE HCL 60067681237 Active Baltazar Childers MD Acti ve ASPIRIN 81 MG TBEC Take one (1) tablet by mouth daily ASPIRIN 06448361711 Active Baltazar Childers MD Active GABAPENTIN 300 MG ORAL CAPSULE 1 three times a day 201 12/03/26 GABAPENTIN 99287261225 No Longer Active Baltazar Childers MD Activ e LISINOPRIL 20 MG ORAL TABLET 1 tablet by mouth daily at night 2016 LISINOPRIL 07454373928 Active Baltazar Childers MD Active ZITHROMAX Z-ISAIAS 250 MG ORAL TABLET Take two tablets to day and then 1 tablet daily for 4 days AZITHROMYCIN 42823149103 No Longer A ctive Baltazar Childers MD Active GLIPIZIDE 10 MG ORAL TABLET take 2 tablets twice daily GLIPIZIDE 25126623351 Active Baltazar Childers MD Active SUCRALFATE 1 GM ORAL TABLET 1 four times a day to coat the stoma ch SUCRALFATE 37577014856 No Longer Active Baltazar Childers MD Active PEN NEEDLES 31G X 6 MM use 1 daily INSULIN PEN NE EDLE 00708231914 Active KENDALL Juarez Active TOUJEO SOLOSTAR 300 UNIT/ML SUBCUTANEOUS SOLUTION PEN- INJECTOR 10 units SC daily INSULIN GLARGINE 11537859510 No Longer Active Rola ARGUETA Active NAPROXEN SODIUM 220 MG ORAL TABLET 1 three times a day as needed NAPROXEN SODIUM 96422594187 No Longer Active Baltazar Childers MD Active ATORVASTATIN CALCIUM 20 MG ORAL TABLET Take 1 tab daily ATORVASTATIN CALCIUM 37748450706 Active Baltazar Childers MD A ctive FUROSEMIDE 40 MG ORAL TABLET Take one by mouth daily FUROSEMIDE 75010991959 Active Baltazar Childers MD Active LISINOPRIL 20 MG ORAL TABLET Take one by mouth daily at bedtime LISINOPRIL 79503346089 No Longer Active Baltazar Childers MD Active ONETOUCH ULTRA BLUE IN VITRO STRIP Test twice a day 07/11/11 GLUCOSE BLOOD 18882718882 No Longer Active Baltazar Childers MD Acti ve TRUEPLUS LANCETS 33G Test twice a day LANCETS 3237592 6408 Active KENDALL Juarez Active TRUEDRAW LANCING DEVICE Test twice a day LANCET DEVICES 89607146858 Active Baltazar Childers MD Active TRUETRACK BLOOD GLUCOSE w/Device KIT Test twice a day BLOOD GLUCOSE MONITORING SUPPL 15888271225 Active Baltazar Childers MD Activ e HYDROCODONE-ACETAMINOPHEN 7.5-325 MG ORAL TABLET Take 1 tab every 6-8 hours PRN HYDROCODONE-ACETAMINOPHEN 76270212296 Active Baltazar Nickerson MD Active GABAPENTIN 300 MG ORAL CAPSULE 1 po qd x 2 days, then 1 po BID x 2 days, then 1 po TID GABAPENTIN 46213138267 No Longer Active Baltazar Childers MD Active NAPROXEN 500 MG ORAL TABLET 1 tablet by mouth twice daily NAPROXEN 26121072763 No Longer Active Baltazar Childers MD Active PROAIR HFA 108 (90 Base) MCG/ACT INHALATION AEROSOL SO LUTION 2 puffs four times a day as needed ALBUTEROL SULFATE 54624785901 Active Shun Arellano LPN Active DEPO-TESTOSTERONE 200 MG/ML INTRAMUSCULAR SOLUTION as directed TESTOSTERONE CYPIONATE 08223719074 No Longer Active Baltazar Childers MD Active LIPITOR 20 MG ORAL TABLET Take one by mouth daily in evening ATORVASTATIN CALCIUM 99643613120 No Longer Active Baltazar Childers MD Active CRESTOR 10 MG ORAL TABLET 1 by mouth every day ROSUVASTATIN CALCIUM 35882116064 No Longer Active Baltazar Childers MD Active PHENTERMINE HCL 37.5 MG ORAL TABLET Take one by mouth daily PHENTERMINE HCL 67870911474 No Longer Active Baltazar Childers MD Ac tive TIZANIDINE HCL 4 MG ORAL TABLET 1 daily as needed for muscle spa sm TIZANIDINE HCL 08451126150 No Longer Active Dawna Salazar RN Active AFTCNZZERF-JECD-RLLONSAC 50-325-40 MG ORAL TABLET 1 fo ur times a day as needed for heacache [id number] 69347054360 Active KENDALL Juarez Active SUMATRIPTAN SUCCINATE 100 MG ORAL TABLET 1 tablet by m outh at onset of migraine as needed SUMATRIPTAN SUCCINATE 82420422789 Active Baltazar Nickerson MD Active LORATADINE 10 MG ORAL TABLET Take one by mouth daily LORATADINE 48412849203 Active Baltazar Childers MD Active OMEPRAZOLE 20 MG ORAL CAPSULE DELAYED RELEASE Take one by mouth jostin ly OMEPRAZOLE 18816189022 Active Baltazar Childers MD Active HYDROXYZINE HCL 25 MG ORAL TABLET Take one by mouth daily HYDROXYZINE HCL 52482287021 Active Baltazar Childers MD Active ALPRAZOLAM 1 MG ORAL TABLET 1 tablet by mouth daily at [facility] ALPRAZOLAM 67024649688 Active Baltazar Childers MD Active METFORMIN HCL 1000 MG ORAL TABLET Take one by mouth twice daily METFORMIN HCL 42095779516 Active Baltazar Childers MD Active TIZANIDINE HCL 4 MG ORAL TABLET 1 daily as needed for muscle spa sm TIZANIDINE HCL 4 MG ORAL TABLET 203538 TIZANIDINE HCL Inactive PHENTERMINE HCL 37.5 MG ORAL TABLET Take one by mouth daily PHENTERMINE HCL 37.5 MG ORAL TABLET 631953 PHENTERMINE HCL Inac tive CRESTOR 10 MG ORAL TABLET 1 by mouth every day CRESTOR 10 MG ORAL TABLET 686724 ROSUVASTATIN CALCIUM Inactive LIPITOR 20 MG ORAL TABLET Take one by mouth daily in evening LIPITOR 20 MG ORAL TABLET 863592 ATORVASTATIN CALCIUM Inactive DEPO-TESTOSTERONE 200 MG/ML INTRAMUSCULAR SOLUTION as directed DEPO-TESTOSTERONE 200 MG/ML INTRAMUSCULAR SOLUTION 1721046 RUFINO TOSTERONE CYPIONATE Inactive NAPROXEN 500 MG ORAL TABLET 1 tablet by mouth twice daily NAPROXEN 500 MG ORAL TABLET 047832 NAPROXEN Inactive GABAPENTIN 300 MG ORAL CAPSULE 1 po qd x 2 days, then 1 po BID x 2 days, then 1 po TID GABAPENTIN 300 MG ORAL CAPSULE 119960 GABAP ENTIN Inactive ONETOUCH ULTRA BLUE IN VITRO STRIP Test twice a day 07/11/11 ONETOUCH ULTRA BLUE IN VITRO STRIP GLUCOSE BLOOD Inact amie NAPROXEN SODIUM 220 MG ORAL TABLET 1 three times a day as needed NAPROXEN SODIUM 220 MG ORAL TABLET 88667762089 NAPROXEN SODI UM Inactive TOUJEO SOLOSTAR 300 UNIT/ML SUBCUTANEOUS SOLUTION PEN- INJECTOR 10 units SC daily TOUJEO SOLOSTAR 300 UNIT/ML SUBCUTANEOUS SOLUTION PEN-INJECTOR INSULIN GLARGINE Inactive SUCRALFATE 1 GM ORAL TABLET 1 four times a day to coat the stoma ch SUCRALFATE 1 GM ORAL TABLET 344907 SUCRALFATE Inac tive GABAPENTIN 300 MG ORAL CAPSULE 1 three times a day 201 12/03/26 GABAPENTIN 300 MG ORAL CAPSULE 797348 GABAPENTIN Inactive TRAMADOL HCL 50 MG ORAL TABLET 1 twice a day as needed for pain TRAMADOL HCL 50 MG ORAL TABLET 380324 TRAMADOL HCL I nactive ZITHROMAX Z-ISAIAS 250 MG ORAL TABLET Take two tablets to day and then 1 tablet daily for 4 days ZITHROMAX Z-ISAIAS 250 MG ORAL TAB LET 219502 AZITHROMYCIN Inactive Immunizations Vaccine Administration Date Value Standard Floyd cription influenza immunization (Flu Vax) has been administered 05/11 Done according to patient influenza virus vaccine, unspecified for mulation pneumococcal immunization administered Pneumovax 23 [CVX33] pneumococcal polysaccharide vaccine, 23 valent Seasonal influenza vaccine, injectable, containing preservative, for > 3 years old (Afluria, FluLaval, Fluzone, Fluvirin, Fluarix, Agriflu(>= 18 yo)) Fluzone (>3 yrs.) [PUU402] Influenza, seasonal, inject able Seasonal influenza vaccine, injectable, containing preservative, for > 3 years old (Afluria, FluLaval, Fluzone, Fluvirin, Fluarix, Agriflu(>= 18 yo)) Fluzone (>3 yrs.) [PTA290] Influenza, seasonal, inject able Vital Signs Date [...] - Chem istry sodium, serum 136 mmol/L 097-399 7749/06/04 potassium, serum 4.9 mmol/L 3.5-5.2 chloride, serum 97 mmol/L 98-107 carbon dioxide, venous blood 35.3 mmol/L 21.0-32 .0 blood glucose 239 mg/dL 65-95 calcium, serum 10.6 mg/dL 8.5-10.1 urea nitrogen, blood 31 mg/dL 7-18 creatinine, serum 2.33 mg/dL 0.60-1.30 Estimated Glomerular Filtration Rate (calc) 23 (?) mL/min/1.73m2 = OR > 60 mL/min sodium, serum 141 mmol/L 643-555 9921/07/09 potassium, serum 4.9 mmol/L 3.5-5.2 chloride, serum [...] 0.40 mg/dL 0.00-1.00 cholesterol, serum 218 mg/dL 904-854 8796/12/18 triglyceride, serum, fasting 357 mg/dL 30-200 HDL cholesterol, serum 49 mg/dL 32-60 LDL cholesterol, serum 103.00 mg/dL 5.00-130.00 hemoglobin A1C, blood, as % of total hemoglobin 8.5 % 4.3-6.0 sodium, serum 142 mmol/L 819-697 8392/12/18 carbon dioxide, venous blood 32.5 mmol/L 21.0-32 [...] Ordered Encounters Code Encounter Date Provider Facility CPT-80045 [id number] Vst-Est Level V 14:28:39 CDT Aneudy Childers MD [facility] CPT-98064 38415-Lku Vst-Est Level IV 15:03:32 CDT Charlie Childers MD [facility] CPT-51475 [id number] Vst-Est Level III 15:51:57 CDT Baltazar Childers MD [facility] CPT-30874 76832-Xhq Vst-Est Level IV 15:14:58 CDT Charlie Childers MD [facility] CPT-47543 84135-Usz Vst-Est Level IV 15:12:52 SILK SCREEN CUTTER Charlie Childers MD [facility] CPT-73469 53510-Nki Vst-Est Level IV 15:30:55 SILK SCREEN CUTTER Charlie Childers MD [facility] CPT-09999 10047-Ksx Vst-Est Level IV 13:49:06 C ELIOT Martinez PA-C [facility] CPT-57449 Level 4 Est. Patient 17:26:08 CDT Ann trujillo PA-C [facility] CPT-90951 14423-Rjt Vst-Est Level V 14:26:27 CDT Aneudy Childers MD [facility]-24756 Level 4 Est. Patient 17:05:37 CDT Baltazar Childers MD [facility] CPT-83694 Level 4 Est. Patient 16:21:19 SILK SCREEN CUTTER Baltazar Childers MD [facility]-88692 Level 4 Est. Patient 12:25:11 CDT Baltazar Childers MD [facility]-63766 Level 4 Est. Patient 14:22:31 CDT Baltazar Childers MD [facility]-86577 Level 4 Est. Patient 15:44:38 [facility] Level 4 Est. Patient 11:34:17 CDT Baltazar Childers MD [facility] CPT-74152 Level 3 Est. Patient 16:40:40 CDT Baltazar Childers MD [facility]-02528 Level 4 Est. Patient 10:41:24 CDT Baltazar Childers MD [facility] CPT-92286 Level 4 Est. Patient 16:01:48 CDT Baltazar Childers MD [facility] CPT-04402 Level 4 Est. Patient 16:54:07 SILK SCREEN CUTTER Baltazar Childers MD [facility]-15000 Level 4 Est. Patient 15:42:12 CDT Baltazar Childers MD [facility] CPT-27344 Level 4 Est. Patient 11:29:55 CDT Baltazar Childers MD [facility] CPT-92205 Level 4 Est. Patient 14:15:19 CDT Baltazar Childers MD [facility] CPT-57858 Level 4 Est. Patient 12:20:13 CDT Baltazar Childers MD [facility] CPT-89320 Level 4 Est. Patient 14:52:45 SILK SCREEN CUTTER Baltazar Childers MD [facility] CPT-37264 Level 4 Est. Patient 14:18:34 SILK SCREEN CUTTER Baltazar Childers MD [facility] CPT-31079 Level 4 Est. Patient 15:18:29 CDT Baltazar Childers MD [facility] CPT-15584 Level 3 Est. Patient 12:45:34 CDT Baltazar Childers MD [facility] CPT-63584 Level 3 Est. Patient 10:10:11 CDT Baltazar Childers MD [facility] CPT-82891 Level 3 Est. Patient 14:07:50 CDT Baltazar Childers MD [facility] CPT-22235 Level 4 Est. Patient 12:26:10 SILK SCREEN CUTTER Baltazar Childers MD [facility] CPT-71794 Level 4 Est. Patient 14:45:38 CDT Baltazar Childers MD [facility] CPT-26065 Level 4 New Patient 12:30:48 CDT Baltazar hinton MD [facility] Procedures Code Procedure Name Date Entry Date Standard Desc ription CPT-24158 4M Drug Screen cup test, Multi-panel, urine 2018 14:28:39 CDT CPT-09830 Venipuncture Draw Fee 15:19:00 CDT CPT-000 Give Appropriate Flu Vaccine 12:25:14 CDT 2 CPT-24460 First Vx - Ix admin via ID I M or jet injects without counseling by physician 13:08:59 CDT CPT-14615 Fluzone Quadrivalent Intramuscular Suspe nsion 0.5 ML 13:08:59 CDT CPT-76371 Venipuncture Draw Fee 12:04:12 CDT CPT-89561 Lipid - LAB USE ONLY 17:39:15 SILK SCREEN CUTTER 9 CPT-48032 HGBA1C - LAB USE ONLY 17:39:15 SILK SCREEN CUTTER CPT-63884 CMP - LAB USE ONLY 17:39:14 SILK SCREEN CUTTER CPT-39987 Venipuncture Draw Fee 17:39:14 SILK SCREEN CUTTER CPT-72668 First Vx - Ix admin via ID I M or jet injects without counseling by physician 16:55:17 SILK SCREEN CUTTER CPT-80259 Fluzone Quadrivalent Intramuscular Suspe nsion 0.5 ML 16:55:17 SILK SCREEN CUTTER CPT-02383 Renal Panel - LAB USE ONLY 17:39:20 CDT 201 10/31/07 CPT-75728 CBC - LAB USE ONLY 17:39:20 CDT CPT-67616 Venipuncture Draw Fee 17:39:20 CDT CPT-38632 Venipuncture Draw Fee 14:33:30 CDT CPT-12911 Renal Panel - LAB USE ONLY 14:33:30 CDT 201 10/31/07 CPT-72226 CBC - LAB USE ONLY 14:33:29 CDT CPT-46502 Venipuncture Draw Fee 14:50:21 SILK SCREEN CUTTER CPT-46748 Immunization Single Admin 17:35:35 CDT 2014 CPT-25221 Fluzone Quadrivalent preservative free ( >=3yrs.) 17:35:35 CDT CPT-97812 Venipuncture Draw Fee 12:10:27 SILK SCREEN CUTTER CPT-70147 Fluzone Quadrivalent Intramuscular Suspe nsion 0.5 ML 10:49:13 CDT CPT-41720 First Vx Component - Ix admi n via ID IM or jet inj without physician counseling 15:17:19 SILK SCREEN CUTTER CPT-48233 Pneumovax 23 15:17:19 SILK SCREEN CUTTER CPT-64645 Pneumovax 14:52:45 SILK SCREEN CUTTER CPT-70907 Venipuncture Draw Fee 14:06:30 SILK SCREEN CUTTER CPT-000 Give Appropriate Flu Vaccine 14:18:34 SILK SCREEN CUTTER 2 CPT-00701 Administration single or combination vac cine inc oral 14:46:00 SILK SCREEN CUTTER CPT-93548 Influenza split virus > age 3 14:46:00 SILK SCREEN CUTTER CPT-OV Office Visit 19:13:16 CDT CPT-76978 Zostavax 18:41:56 CDT CPT-64811 Administration single or combination vac cine inc oral 12:56:39 CDT CPT-37391 Zoster Vaccine (Zostavax) 12:56:39 CDT 2012 CPT-89883 Venipuncture Draw Fee 10:58:57 CDT CPT-56725 Sono pelvis non OB uterus ovaries cervix 17:45:04 CDT CPT-18216 Sono retroperitoneal complete kidneys an d bladder 17:14:36 CDT CPT-OV Office Visit 14:59:38 SILK SCREEN CUTTER CPT-J1070 Depo Testosterone 100 mg 14:50:13 CDT 03/05 CPT-68595 Abx/Therapy Injection 14:50:13 CDT CPT-25394 Administration single or combination vac cine inc oral 14:34:43 CDT CPT-18808 Influenza split virus > age 3 14:34:43 CDT CPT-J1070 Depo Testosterone 100 mg 17:37:13 CDT 01/11 CPT-27132 Abx/Therapy Injection 17:37:13 CDT CPT-16001 Venipuncture Draw Fee 16:30:13 CDT CPT-09502 Venipuncture Draw Fee 16:29:43 CDT CPT-J1070 Depo Testosterone 100 mg 14:45:38 CDT 01/11
--- OUTSIDE RECORDS SUMMARY | 2019-10-27 12:14 | XMS REPORT | Clinical Summary ---
Author Author Admin, Elba Lance [facility] [place] Address Unknown Phone Unavailable Allergies, Adverse Reactions, [...] Morbid obesity due to excess calories 278.01 [facility] Baltazar Childers MD Morbid obesity Obesity Class II (BMI 35-39.9) 278.01 Refinement 10/26 Baltazar Childers MD Morbid obesity Morbid obesity due to excess calories 278.01 [facility] Baltazar Childers MD Morbid obesity Obesity Class II (BMI 35-39.9) 278.01 Refinement 01/19 Baltazar Childers MD Morbid obesity Morbid obesity due to excess calories 278.01 Active Baltazar Childers MD Morbid obesity ADD 314.00 Active Baltaazr Cihlders MD Attention deficit disorder of childhood without [...] and 13 units at night INSULIN GLARGINE 02033974079 Active Baltazar Childers MD Active ONGLYZA 2.5 MG ORAL TABLET 1 daily for diabetes SAXAGLIPTIN HCL 97622384498 Active Baltazar Childers MD Active TRAMADOL HCL 50 MG ORAL TABLET 1 twice a day as needed for pain TRAMADOL HCL 59214994647 No Longer Active Baltazar Childers MD Active ROBAXIN 500 MG ORAL TABLET Take 1.5 (one and one half) tabs once daily METHOCARBAMOL 18680300645 Active Baltazar Childers MD Active SYNTHROID 112 MCG ORAL TABLET Take one tablet a day LEVOTHYROXINE SODIUM 70578811833 Active Baltazar Childers MD Active TRUE METRIX AIR GLUCOSE METER DEVICE Use as directed BLOOD GLUCOSE MONITORING SUPPL 95715608138 Active Baltazar Childers MD Activ e TRUE METRIX BLOOD GLUCOSE TEST IN VITRO STRIP test blood sug ar BID Dx: E11.65 GLUCOSE BLOOD 40089069644 Active KENDALL Juarez Active NORTRIPTYLINE HCL 50 MG ORAL CAPSULE 1 twice a day for neuropathy 2 NORTRIPTYLINE HCL 99787818378 Active Baltazar Childers MD Acti ve ASPIRIN 81 MG TBEC Take one (1) tablet by mouth daily ASPIRIN 81470558015 Active Baltazar Childers MD Active GABAPENTIN 300 MG ORAL CAPSULE 1 three times a day 201 12/03/26 GABAPENTIN 68353524402 No Longer Active Baltazar Childers MD Activ e LISINOPRIL 20 MG ORAL TABLET 1 tablet by mouth daily at night 2016 LISINOPRIL 14224406747 Active Baltazar Childers MD Active ZITHROMAX Z-ISAIAS 250 MG ORAL TABLET Take two tablets to day and then 1 tablet daily for 4 days AZITHROMYCIN 75527801951 No Longer A ctive Baltazar Childers MD Active AMLODIPINE BESYLATE 5 MG ORAL TABLET 1 tab daily for HTN AMLODIPINE BESYLATE 42079508947 Active Baltazar Childers MD Active GLIPIZIDE 10 MG ORAL TABLET take 2 tablets twice daily GLIPIZIDE 39019674539 Active Baltazar Childers MD Active SUCRALFATE 1 GM ORAL TABLET 1 four times a day to coat the stoma ch SUCRALFATE 99912693566 No Longer Active Baltazar Childers MD Active PEN NEEDLES 31G X 6 MM use 1 daily INSULIN PEN NE EDLE 08032544391 Active KENDALL Juarez Active TOUONOFRE SOLOSTAR 300 UNIT/ML SUBCUTANEOUS SOLUTION PEN- INJECTOR 10 units SC daily INSULIN GLARGINE 02454095314 No Longer Active Rola ARGUETA Active NAPROXEN SODIUM 220 MG ORAL TABLET 1 three times a day as needed NAPROXEN SODIUM 62150679943 No Longer Active Baltazar Childers MD Active ATORVASTATIN CALCIUM 20 MG ORAL TABLET Take 1 tab daily ATORVASTATIN CALCIUM 24980932649 Active Baltazar Childers MD A ctive FUROSEMIDE 40 MG ORAL TABLET Take one by mouth daily FUROSEMIDE 09452430377 Active Baltazar Childers MD Active LISINOPRIL 20 MG ORAL TABLET Take one by mouth daily at bedtime LISINOPRIL 01001564978 No Longer Active Baltazar Childers MD Active ONETOUCH ULTRA BLUE IN VITRO STRIP Test twice a day 07/11/11 GLUCOSE BLOOD 45028044855 No Longer Active Baltazar Childers MD Acti ve TRUEPLUS LANCETS 33G Test twice a day LANCETS 9656574 6466 Active KENDALL Juarez Active TRUEDRAW LANCING DEVICE Test twice a day LANCET DEVICES 81101660569 Active Baltazar Childers MD Active TRUETRACK BLOOD GLUCOSE w/Device KIT Test twice a day BLOOD GLUCOSE MONITORING SUPPL 89814599807 Active Baltazar Childers MD Activ e HYDROCODONE-ACETAMINOPHEN 7.5-325 MG ORAL TABLET Take 1 tab every 6-8 hours PRN HYDROCODONE-ACETAMINOPHEN 61494566307 Active Baltazar Nickerson MD Active GABAPENTIN 300 MG ORAL CAPSULE 1 po qd x 2 days, then 1 po BID x 2 days, then 1 po TID GABAPENTIN 67415928148 No Longer Active Baltazar Childers MD Active NAPROXEN 500 MG ORAL TABLET 1 tablet by mouth twice daily NAPROXEN 70555337890 No Longer Active Baltazar Childers MD Active PROAIR HFA 108 (90 Base) MCG/ACT INHALATION AEROSOL SO LUTION 2 puffs four times a day as needed ALBUTEROL SULFATE 21417827193 Active Shun Arellano LPN Active DEPO-TESTOSTERONE 200 MG/ML INTRAMUSCULAR SOLUTION as directed TESTOSTERONE CYPIONATE 98099134212 No Longer Active Baltazar Childers MD Active LIPITOR 20 MG ORAL TABLET Take one by mouth daily in evening ATORVASTATIN CALCIUM 73684914841 No Longer Active Baltazar Childers MD Active CRESTOR 10 MG ORAL TABLET 1 by mouth every day ROSUVASTATIN CALCIUM 94049988101 No Longer Active Baltazar Childers MD Active PHENTERMINE HCL 37.5 MG ORAL TABLET Take one by mouth daily PHENTERMINE HCL 00192260712 No Longer Active Baltazar Childers MD Ac tive TIZANIDINE HCL 4 MG ORAL TABLET 1 daily as needed for muscle spa sm TIZANIDINE HCL 70459676453 No Longer Active Dawna Salazar RN Active [id number] 50-325-40 MG ORAL TABLET 1 fo ur times a day as needed for heacache [id number] 44266315615 Active KENDALL Juarez Active SUMATRIPTAN SUCCINATE 100 MG ORAL TABLET 1 tablet by m outh at onset of migraine as needed SUMATRIPTAN SUCCINATE 67143874787 Active Baltazar Nickerson MD Active LORATADINE 10 MG ORAL TABLET Take one by mouth daily LORATADINE 62892703933 Active Baltazar Childers MD Active OMEPRAZOLE 20 MG ORAL CAPSULE DELAYED RELEASE Take one by mouth jostin ly OMEPRAZOLE 81719427859 Active Baltazar Childers MD Active HYDROXYZINE HCL 25 MG ORAL TABLET Take one by mouth daily HYDROXYZINE HCL 81735918416 Active Baltazar Childers MD Active ALPRAZOLAM 1 MG ORAL TABLET 1 tablet by mouth daily at bedti id for restless leg ALPRAZOLAM 30738450250 Active Baltazar Childers MD Active METFORMIN HCL 1000 MG ORAL TABLET Take one by mouth twice daily METFORMIN HCL 28373885085 Active Baltazar Childers MD Active TIZANIDINE HCL 4 MG ORAL TABLET 1 daily as needed for muscle spa sm TIZANIDINE HCL 4 MG ORAL TABLET 643929 TIZANIDINE HCL Inactive PHENTERMINE HCL 37.5 MG ORAL TABLET Take one by mouth daily PHENTERMINE HCL 37.5 MG ORAL TABLET 209829 PHENTERMINE HCL Inac tive CRESTOR 10 MG ORAL TABLET 1 by mouth every day CRESTOR 10 MG ORAL TABLET 270302 ROSUVASTATIN CALCIUM Inactive LIPITOR 20 MG ORAL TABLET Take one by mouth daily in evening LIPITOR 20 MG ORAL TABLET 760740 ATORVASTATIN CALCIUM Inactive DEPO-TESTOSTERONE 200 MG/ML INTRAMUSCULAR SOLUTION as directed DEPO-TESTOSTERONE 200 MG/ML INTRAMUSCULAR SOLUTION 9460102 RUFINO TOSTERONE CYPIONATE Inactive NAPROXEN 500 MG ORAL TABLET 1 tablet by mouth twice daily NAPROXEN 500 MG ORAL TABLET 258600 NAPROXEN Inactive GABAPENTIN 300 MG ORAL CAPSULE 1 po qd x 2 days, then 1 po BID x 2 days, then 1 po TID GABAPENTIN 300 MG ORAL CAPSULE 064851 GABAP ENTIN Inactive ONETOUCH ULTRA BLUE IN VITRO STRIP Test twice a day 07/11/11 ONETOUCH ULTRA BLUE IN VITRO STRIP GLUCOSE BLOOD Inact amie NAPROXEN SODIUM 220 MG ORAL TABLET 1 three times a day as needed NAPROXEN SODIUM 220 MG ORAL TABLET 38464086627 NAPROXEN SODI UM Inactive TOUJEO SOLOSTAR 300 UNIT/ML SUBCUTANEOUS SOLUTION PEN- INJECTOR 10 units SC daily TOUJEO SOLOSTAR 300 UNIT/ML SUBCUTANEOUS SOLUTION PEN-INJECTOR INSULIN GLARGINE Inactive SUCRALFATE 1 GM ORAL TABLET 1 four times a day to coat the stoma ch SUCRALFATE 1 GM ORAL TABLET 477734 SUCRALFATE Inac tive GABAPENTIN 300 MG ORAL CAPSULE 1 three times a day 201 12/03/26 GABAPENTIN 300 MG ORAL CAPSULE 413816 GABAPENTIN Inactive TRAMADOL HCL 50 MG ORAL TABLET 1 twice a day as needed for pain TRAMADOL HCL 50 MG ORAL TABLET 774200 TRAMADOL HCL I nactive ZITHROMAX Z-ISAIAS 250 MG ORAL TABLET Take two tablets to day and then 1 tablet daily for 4 days ZITHROMAX Z-ISAIAS 250 MG ORAL TAB LET 105178 AZITHROMYCIN Inactive Immunizations Vaccine Administration Date Value Standard Floyd cription influenza immunization (Flu Vax) has been administered 05/11 Done according to patient influenza virus vaccine, unspecified for mulation pneumococcal immunization administered Pneumovax 23 [CVX33] pneumococcal polysaccharide vaccine, 23 valent Seasonal influenza vaccine, injectable, containing preservative, for > 3 years old (Afluria, FluLaval, Fluzone, Fluvirin, Fluarix, Agriflu(>= 18 yo)) Fluzone (>3 yrs.) [BDT261] Influenza, seasonal, inject able Seasonal influenza vaccine, injectable, containing preservative, for > 3 years old (Afluria, FluLaval, Fluzone, Fluvirin, Fluarix, Agriflu(>= 18 yo)) Fluzone (>3 yrs.) [VJI316] Influenza, seasonal, inject able Vital Signs Date [...] - Chem istry sodium, serum 136 mmol/L 436-113 7987/06/04 potassium, serum 4.9 mmol/L 3.5-5.2 chloride, serum 97 mmol/L 98-107 carbon dioxide, venous blood 35.3 mmol/L 21.0-32 .0 blood glucose 239 mg/dL 65-95 calcium, serum 10.6 mg/dL 8.5-10.1 urea nitrogen, blood 31 mg/dL 7-18 creatinine, serum 2.33 mg/dL 0.60-1.30 Estimated Glomerular Filtration Rate (calc) 23 (?) mL/min/1.73m2 = OR > 60 mL/min sodium, serum 141 mmol/L 518-241 6256/07/09 potassium, serum 4.9 mmol/L 3.5-5.2 chloride, serum [...] 0.40 mg/dL 0.00-1.00 cholesterol, serum 218 mg/dL 580-253 8916/12/18 triglyceride, serum, fasting 357 mg/dL 30-200 HDL cholesterol, serum 49 mg/dL 32-60 LDL cholesterol, serum 103.00 mg/dL 5.00-130.00 hemoglobin A1C, blood, as % of total hemoglobin 8.5 % 4.3-6.0 sodium, serum 142 mmol/L 846-748 9767/12/18 carbon dioxide, venous blood 32.5 mmol/L 21.0-32 [...] Ordered Encounters Code Encounter Date Provider Facility CPT-43908 01316-Zkg Vst-Est Level V 14:28:39 CDT Aneudy Childers MD [facility] CPT-85414 98653-Vny Vst-Est Level IV 15:03:32 CDT Charlie Childers MD [facility] [place] CPT-87085 21551-Whh Vst-Est Level III 15:51:57 CDT Baltazar Childers MD [facility] [place] CPT-00862 37988-Amt Vst-Est Level IV 15:14:58 CDT Charlie Childers MD [facility] CPT-09731 22833-Xad Vst-Est Level IV 15:12:52 COMPLIANCE CONSULTANT Charlie Childers MD [facility] [place] CPT-44207 29039-Szx Vst-Est Level IV 15:30:55 COMPLIANCE CONSULTANT Charlie Childers MD [facility] [place] CPT-31202 76270-Juz Vst-Est Level IV 13:49:06 C ELIOT Martinez PA-C [facility] CPT-64055 Level 4 Est. Patient 17:26:08 CDT Ann trujillo PA-C [facility]-11103 96892-Btk Vst-Est Level V 14:26:27 CDT Aneudy Childers MD [facility]-36994 Level 4 Est. Patient 17:05:37 CDT Baltazar Childers MD [facility]-89212 Level 4 Est. Patient 16:21:19 COMPLIANCE CONSULTANT Baltazar Childers MD [facility]-30131 Level 4 Est. Patient 12:25:11 CDT Baltazar Childers MD [facility]-20465 Level 4 Est. Patient 14:22:31 CDT Baltazar Childers MD [facility]-70012 Level 4 Est. Patient 15:44:38 CDT Shonna Parker APRN [facility]-16438 Level 4 Est. Patient 11:34:17 CDT Baltazar Childers MD [facility]-77999 Level 3 Est. Patient 16:40:40 CDT Baltazar Childers MD [facility]-95161 Level 4 Est. Patient 10:41:24 CDT Baltazar Childers MD [facility]-03059 Level 4 Est. Patient 16:01:48 CDT Baltazar Childers MD [facility]-74689 Level 4 Est. Patient 16:54:07 COMPLIANCE CONSULTANT Baltazar Childers MD [facility]-58445 Level 4 Est. Patient 15:42:12 CDT Baltazar Childers MD [facility] CPT-38370 Level 4 Est. Patient 11:29:55 CDT Baltazar Childers MD [facility] CPT-85319 Level 4 Est. Patient 14:15:19 CDT Baltazar Childers MD [facility] CPT-94154 Level 4 Est. Patient 12:20:13 CDT Baltazar Childers MD [facility] CPT-60582 Level 4 Est. Patient 14:52:45 COMPLIANCE CONSULTANT Baltazar Childers MD [facility] CPT-85443 Level 4 Est. Patient 14:18:34 COMPLIANCE CONSULTANT Baltazar Childers MD [facility] CPT-77401 Level 4 Est. Patient 15:18:29 CDT Baltazar Childers MD [facility] CPT-09320 Level 3 Est. Patient 12:45:34 CDT Baltazar Childers MD [facility] CPT-77143 Level 3 Est. Patient 10:10:11 CDT Baltazar Childers MD [facility] CPT-99847 Level 3 Est. Patient 14:07:50 CDT Baltazar Childers MD [facility] CPT-91221 Level 4 Est. Patient 12:26:10 COMPLIANCE CONSULTANT Baltazar Childers MD [facility] CPT-50874 Level 4 Est. Patient 14:45:38 CDT Baltazar Childers MD [facility] CPT-05964 Level 4 New Patient 12:30:48 CDT Baltazar hinton MD [facility] Procedures Code Procedure Name Date Entry Date Standard Desc ription CPT-27873 4M Drug Screen cup test, Multi-panel, urine 2018 14:28:39 CDT CPT-56813 Venipuncture Draw Fee 15:19:00 CDT CPT-000 Give Appropriate Flu Vaccine 12:25:14 CDT 2 CPT-01754 First Vx - Ix admin via ID I M or jet injects without counseling by physician 13:08:59 CDT CPT-52657 Fluzone Quadrivalent Intramuscular Suspe nsion 0.5 ML 13:08:59 CDT CPT-33557 Venipuncture Draw Fee 12:04:12 CDT CPT-93182 Lipid - LAB USE ONLY 17:39:15 COMPLIANCE CONSULTANT 9 CPT-63206 HGBA1C - LAB USE ONLY 17:39:15 COMPLIANCE CONSULTANT CPT-80511 CMP - LAB USE ONLY 17:39:14 COMPLIANCE CONSULTANT CPT-10553 Venipuncture Draw Fee 17:39:14 COMPLIANCE CONSULTANT CPT-69581 First Vx - Ix admin via ID I M or jet injects without counseling by physician 16:55:17 COMPLIANCE CONSULTANT CPT-98430 Fluzone Quadrivalent Intramuscular Suspe nsion 0.5 ML 16:55:17 COMPLIANCE CONSULTANT CPT-94236 Renal Panel - LAB USE ONLY 17:39:20 CDT 201 10/31/07 CPT-63034 CBC - LAB USE ONLY 17:39:20 CDT CPT-10349 Venipuncture Draw Fee 17:39:20 CDT CPT-02073 Venipuncture Draw Fee 14:33:30 CDT CPT-11664 Renal Panel - LAB USE ONLY 14:33:30 CDT 201 10/31/07 CPT-37898 CBC - LAB USE ONLY 14:33:29 CDT CPT-43498 Venipuncture Draw Fee 14:50:21 COMPLIANCE CONSULTANT CPT-68100 Immunization Single Admin 17:35:35 CDT 2014 CPT-70782 Fluzone Quadrivalent preservative free ( >=3yrs.) 17:35:35 CDT CPT-98245 Venipuncture Draw Fee 12:10:27 COMPLIANCE CONSULTANT CPT-06035 Fluzone Quadrivalent Intramuscular Suspe nsion 0.5 ML 10:49:13 CDT CPT-27464 First Vx Component - Ix admi n via ID IM or jet inj without physician counseling 15:17:19 COMPLIANCE CONSULTANT CPT-65749 Pneumovax 23 15:17:19 COMPLIANCE CONSULTANT CPT-76616 Pneumovax 14:52:45 COMPLIANCE CONSULTANT CPT-01574 Venipuncture Draw Fee 14:06:30 COMPLIANCE CONSULTANT CPT-000 Give Appropriate Flu Vaccine 14:18:34 COMPLIANCE CONSULTANT 2 CPT-15215 Administration single or combination vac cine inc oral 14:46:00 COMPLIANCE CONSULTANT CPT-60595 Influenza split virus > age 3 14:46:00 COMPLIANCE CONSULTANT CPT-OV Office Visit 19:13:16 CDT CPT-20011 Zostavax 18:41:56 CDT CPT-48666 Administration single or combination vac cine inc oral 12:56:39 CDT CPT-28280 Zoster Vaccine (Zostavax) 12:56:39 CDT 2012 CPT-21053 Venipuncture Draw Fee 10:58:57 CDT CPT-06700 Sono pelvis non OB uterus ovaries cervix 17:45:04 CDT CPT-91678 Sono retroperitoneal complete kidneys an d bladder 17:14:36 CDT CPT-OV Office Visit 14:59:38 COMPLIANCE CONSULTANT CPT-J1070 Depo Testosterone 100 mg 14:50:13 CDT 03/05 CPT-80189 Abx/Therapy Injection 14:50:13 CDT CPT-62505 Administration single or combination vac cine inc oral 14:34:43 CDT CPT-51080 Influenza split virus > age 3 14:34:43 CDT CPT-J1070 Depo Testosterone 100 mg 17:37:13 CDT 01/11 CPT-56033 Abx/Therapy Injection 17:37:13 CDT CPT-16746 Venipuncture Draw Fee 16:30:13 CDT CPT-76222 Venipuncture Draw Fee 16:29:43 CDT CPT-J1070 Depo Testosterone 100 mg 14:45:38 CDT 01/11
--- OUTSIDE RECORDS SUMMARY | 2019-10-27 12:15 | XMS REPORT | Clinical Summary ---
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 AND SALVAGER Benign neoplasm of colon PERIPHERAL NEUROPATHY 356.9 Active Baltazar Nickerson MD Unspecified hereditary and idiopathic peripheral neuropathy PERSONAL HISTORY OF COLONIC POLYPS V12.72 Active 2 Lolis Thomas APRN Personal history of colonic polyps PARESTHESIA, HANDS 782.0 Active Baltazar Childesr MD Disturbance of skin sensation FH DIABETES V18.0 Active Baltazar Childers MD Family history of diabetes mellitus ANEMIA 285.9 Active Baltazar Childers MD Anemia, unspecified RENAL INSUFFICIENCY 593.9 Active Baltazar bynum MD Unspecified disorder of kidney and ureter CAD 414.00 Active Gladys Arce LRT Co ronary atherosclerosis of unspecified type of vessel, [place] or graft OTH NONSPC ABN FINDNG RAD&OTH [...] day to coat the stomach 2015 SUCRALFATE 49192884991 No Longer Active Baltazar Childers MD Active PEN NEEDLES 31G X 6 MM MISC use 1 daily INSULIN PEN NEEDLE 87937807836 Active Bella Suarez [employer] DUST CLEANER [employer] SALVAGER Active TOUJEO SOLOSTAR 300 UNIT/ML SC SOPN 10 units SC daily INSULIN GLARGINE 88520947013 No Longer Active Martita Godinez RMA Active LANTUS SOLOSTAR 100 UNIT/ML SC SOPN 10 units SC daily INSULIN GLARGINE 37742662220 Active Baltazar Childers MD Active NAPROXEN SODIUM 220 MG ORAL TABS 1 three times a day as needed 2 NAPROXEN SODIUM 07948735925 No Longer Active Baltazar Childres MD Active ATORVASTATIN CALCIUM 20 MG ORAL TABS Take 1 tab daily ATORVASTATIN CALCIUM 76834692986 Active Baltazar Childers MD Active FUROSEMIDE 40 MG TABS Take one by mouth daily FUROSEMIDE 39830611907 Active Baltazar Childers MD Active LISINOPRIL 20 MG TABS Take one by mouth daily at bedtime LISINOPRIL 57207900111 Active Baltazar Childers MD Active ONETOUCH ULTRA BLUE STRP Test twice a day GLUCO SE BLOOD 64496796312 No Longer Active Baltazar Childers MD Active TRUEPLUS LANCETS 33G MISC Test twice a day LANCET S 12397236270 Active KNEDALL Juarez Active TRUEDRAW LANCING DEVICE MISC Test twice a day L ANCET DEVICES 48237755071 Active Baltazar Childers MD Active TRUETRACK TEST STRP Test twice a day GLUCOSE BLOO D 91670901841 Active KENDALL Juarez Active TRUETRACK BLOOD GLUCOSE W/DEVICE KIT Test twice a day BLOOD GLUCOSE MONITORING SUPPL 67834300369 Active Baltazar Childers MD Activ e HYDROCODONE-ACETAMINOPHEN 7.5-325 MG TABS Take 1 tab every 6-8 hour s PRN HYDROCODONE-ACETAMINOPHEN 75807971107 Active Baltazar Childers MD Active NORTRIPTYLINE HCL 50 MG CAPS 1 every night for neuropathy 4 NORTRIPTYLINE HCL 21367949401 Active Baltazar Childers MD Acti ve GABAPENTIN 300 MG CAPS 1 three times a day GABAPE NTIN 49846212386 Active Baltazar Childers MD Active GABAPENTIN 300 MG CAPS 1 po qd x 2 days, then 1 po BID x 2 d ays, then 1 po TID GABAPENTIN 35898166310 No Longer Active Baltazar silverman MD Active TRAMADOL HCL 50 MG TABS 1 twice a day as needed for pain TRAMADOL HCL 82889409067 Active Baltazar Childers MD Active NAPROXEN 500 MG TABS 1 tablet by mouth twice daily NAPROXEN 72781741119 No Longer Active Baltazar Childers MD Active PROAIR HFA 108 (90 BASE) MCG/ACT AERS 2 puffs four times a d ay as needed ALBUTEROL SULFATE 95815129813 Active KENDALL Juarez Active DEPO-TESTOSTERONE 200 MG/ML OIL as directed RUFINO TOSTERONE CYPIONATE 48552982140 No Longer Active Baltazar Childers MD Active LIPITOR 20 MG TABS Take one by mouth daily in evening ATORVASTATIN CALCIUM 96865135314 No Longer Active Baltazar Childers MD Activ e CRESTOR 10 MG TABS 1 by mouth every day R OSUVASTATIN CALCIUM 54858728722 No Longer Active Baltazar Childers MD Activ e PHENTERMINE HCL 37.5 MG TABS Take one by mouth daily 2 PHENTERMINE HCL 49407431523 No Longer Active Baltazar Childers MD Activ e ROBAXIN-750 750 MG TABS Take one by mouth daily ME THOCARBAMOL 97279427212 Active Baltazar Childers MD Active TIZANIDINE HCL 4 MG TABS 1 daily as needed for muscle spasm 2011 TIZANIDINE HCL 61097791663 No Longer Active Dawna Salazar RN Active [id number] 50-325-40 MG TABS 1 four time s a day as needed for heacache EJOOVVCLST-JRSM-HVHMTGFR 07507830310 Active Baltazar Childers MD Active SUMATRIPTAN SUCCINATE 100 MG TABS 1 tablet by mouth at onset of migraine as needed SUMATRIPTAN SUCCINATE 89923740822 Active Baltazar bynum MD Active LORATADINE 10 MG TABS Take one by mouth daily LORATADINE 41927381672 Active Baltazar Childers MD Active OMEPRAZOLE 20 MG CPDR Take one by mouth daily OMEPRAZOLE 92152282021 Active Baltazar Childers MD Active HYDROXYZINE HCL 25 MG TABS Take one by mouth daily HYDROXYZINE HCL 97420495664 Active Baltazar Childers MD Active GLIPIZIDE 10 MG TABS 1 tablet by mouth twice daily GLIPIZIDE 72599707500 Active Baltazar Childers MD Active ALPRAZOLAM 1 MG TABS 1 tablet by mouth daily at bedtime for restles s leg ALPRAZOLAM 31111031635 Active Baltazar Childers MD Active METFORMIN HCL 1000 MG TABS Take one by mouth twice daily METFORMIN HCL 55115117804 Active Baltazar Childers MD Active TIZANIDINE HCL 4 MG TABS 1 daily as needed for muscle spasm 2011 TIZANIDINE HCL 4 MG TABS 509894 TIZANIDINE HCL Inactiv e PHENTERMINE HCL 37.5 MG TABS Take one by mouth daily 2 PHENTERMINE HCL 37.5 MG TABS 120792 PHENTERMINE HCL Inactive CRESTOR 10 MG TABS 1 by mouth every day C RESTOR 10 MG TABS 708813 ROSUVASTATIN CALCIUM Inactive LIPITOR 20 MG TABS Take one by mouth daily in evening LIPITOR 20 MG TABS 260815 ATORVASTATIN CALCIUM Inactive DEPO-TESTOSTERONE 200 MG/ML OIL as directed 8 DEPO-TESTOSTERONE 200 MG/ML OIL 248690 TESTOSTERONE CYPIONATE Inactive NAPROXEN 500 MG TABS 1 tablet by mouth twice daily 201 07/27/22 NAPROXEN 500 MG TABS 489717 NAPROXEN Inactive GABAPENTIN 300 MG CAPS 1 po qd x 2 days, then 1 po BID x 2 d ays, then 1 po TID GABAPENTIN 300 MG CAPS 394400 GABAPENTIN Inact amie ONETOUCH ULTRA BLUE STRP Test twice a day ONETOUCH ULTRA BLUE STRP GLUCOSE BLOOD Inactive NAPROXEN SODIUM 220 MG ORAL TABS 1 three times a day as needed 2 NAPROXEN SODIUM 220 MG ORAL TABS 231813 NAPROXEN SODIUM Inactive TOUJEO SOLOSTAR 300 UNIT/ML SC SOPN 10 units SC daily TOUJEO SOLOSTAR 300 UNIT/ML SC SOPN INSULIN GLARGINE Inac tive SUCRALFATE 1 GM TABS 1 four times a day to coat the stomach 2015 SUCRALFATE 1 GM TABS 751652 SUCRALFATE Inactive Immunizations Vaccine Administration Date Value Standard Floyd cription pneumococcal immunization administered Pneumovax 23 [CVX33] pneumococcal polysaccharide vaccine, 23 valent Seasonal influenza vaccine, injectable, containing preservative, for > 3 years old (Afluria, FluLaval, Fluzone, Fluvirin, Fluarix, Agriflu(>= 18 yo)) Fluzone (>3 yrs.) [[id number]] Influenza, seasonal, inject able Seasonal influenza vaccine, injectable, containing preservative, for > 3 years old (Afluria, FluLaval, Fluzone, Fluvirin, Fluarix, Agriflu(>= 18 yo)) Fluzone (>3 yrs.) [[id number]] Influenza, seasonal, inject able Vital Signs Date Name Value Unit Range Description blood pressure, diastolic - 8462-4 81 mm[Hg] [...] C - Chemistry sodium, serum 139 mmol/L 168-769 6062/07/07 potassium, serum 4.5 mmol/L 3.5-5.2 chloride, serum [...] 7.9 % 4.3-6.0 sodium, serum 139 mmol/L 096-698 8448/02/04 potassium, serum 5.4 mmol/L 3.5-5.2 chloride, serum [...] Panel - Chemistry sodium, serum 143 mmol/L 971-934 2051/12/19 carbon dioxide, venous blood 32.5 mmol/L 21.0-32 .0 potassium, serum 4.9 mmol/L 3.5-5.2 chloride, serum 101 mmol/L 98-107 blood glucose 129 mg/dL 65-110 urea nitrogen, blood 18 mg/dL 7-18 creatinine, serum 1.79 mg/dL 0.55-1.30 alanine aminotransferase (SGPT), serum 34 U/L 12-78 aspartate aminotransferase (SGOT), serum 26 U/L 15-37 calcium, serum 8.9 mg/dL 8.5-10.1 bilirubin, serum, total 0.30 mg/dL 0.00-1.00 cholesterol, serum 214 mg/dL 313-657 9606/12/19 triglyceride, serum, fasting 351 mg/dL 30-200 HDL cholesterol, serum 52 mg/dL 32-96 LDL cholesterol, serum 92 mg/dL 0-130 Lab Report: HGBA1C - Chemistry hemoglobin A1C, blood, as % of total hemoglobin 7.3 % 4.3-6.0 Lab Report: Renal Panel - Chemistry sodium, serum 141 mmol/L 153-807 7946/08/08 potassium, serum 4.9 mmol/L 3.5-5.2 chloride, serum 101 mmol/L 98-107 carbon dioxide, venous blood 34.1 mmol/L 21.0-32 .0 creatinine, serum 1.98 mg/dL 0.55-1.30 blood glucose 193 mg/dL 65-110 urea nitrogen, blood 30 mg/dL 7-18 calcium, serum 9.8 mg/dL 8.5-10.1 Office Visit: Medication refill - Basic LDL target level 70 mg/dL Office Visit: Medication refill - Chemis try HDL cholesterol, serum, target level 40 mg/dL triglyceride, target level 150 mg/dL cholesterol, target level 200 mg/dL Encounters Code Encounter Date Provider Facility CPT-54256 Level 4 Est. Patient 11:34:17 CDT Baltazar Childers MD [facility] CPT-39728 Level 3 Est. Patient 16:40:40 CDT Baltazar Childers MD [facility] CPT-35523 Level 4 Est. Patient 10:41:24 CDT Baltazar Childers MD [facility] CPT-98752 Level 4 Est. Patient 16:01:48 CDT Baltazar Childers MD [facility] CPT-92734 Level 4 Est. Patient 16:54:07 FOOD SCIENTIST Baltazar Childers MD [facility] CPT-88945 Level 4 Est. Patient 15:42:12 CDT Baltazar Childers MD [facility] CPT-71244 Level 4 Est. Patient 11:29:55 CDT Baltazar Childers MD [facility] CPT-54432 Level 4 Est. Patient 14:15:19 CDT Baltazar Childers MD [facility] CPT-19935 Level 4 Est. Patient 12:20:13 CDT Baltazar Childers MD [facility] CPT-23476 Level 4 Est. Patient 14:52:45 FOOD SCIENTIST Baltazar Childers MD [facility] CPT-88055 Level 4 Est. Patient 14:18:34 FOOD SCIENTIST Baltazar Childers MD [facility] CPT-39153 Level 4 Est. Patient 15:18:29 CDT Baltazar Childers MD [facility] CPT-17307 Level 3 Est. Patient 12:45:34 CDT Baltazar Childers MD [facility] CPT-96661 Level 3 Est. Patient 10:10:11 CDT Baltazar Childers MD [facility] CPT-19552 Level 3 Est. Patient 14:07:50 CDT Baltazar Childers MD [facility] CPT-25036 Level 4 Est. Patient 12:26:10 FOOD SCIENTIST Baltazar Childers MD [facility] CPT-22179 Level 4 Est. Patient 14:45:38 CDT Baltazar Childers MD [facility] CPT-46709 Level 4 New Patient 12:30:48 CDT Baltazar hinton MD [facility] Procedures Code Procedure Name Date Entry Date Standard Desc ription CPT-88808 Lipid - LAB USE ONLY 17:39:15 FOOD SCIENTIST 9 CPT-60417 HGBA1C - LAB USE ONLY 17:39:15 FOOD SCIENTIST CPT-05080 CMP - LAB USE ONLY 17:39:14 FOOD SCIENTIST CPT-64311 Venipuncture Draw Fee 17:39:14 FOOD SCIENTIST CPT-54688 First Vx - Ix admin via ID I M or jet injects without counseling by physician 16:55:17 FOOD SCIENTIST CPT-57946 Fluzone Quadrivalent Intramuscular Suspe nsion 0.5 ML 16:55:17 FOOD SCIENTIST CPT-58723 Renal Panel - LAB USE ONLY 17:39:20 CDT 201 10/31/07 CPT-82071 CBC - LAB USE ONLY 17:39:20 CDT CPT-40068 Venipuncture Draw Fee 17:39:20 CDT CPT-05076 Venipuncture Draw Fee 14:33:30 CDT CPT-45071 Renal Panel - LAB USE ONLY 14:33:30 CDT 201 10/31/07 CPT-54305 CBC - LAB USE ONLY 14:33:29 CDT CPT-81659 Venipuncture Draw Fee 14:50:21 FOOD SCIENTIST CPT-01975 Immunization Single Admin 17:35:35 CDT 2014 CPT-52849 Fluzone Quadrivalent preservative free ( >=3yrs.) 17:35:35 CDT CPT-11555 Venipuncture Draw Fee 12:10:27 FOOD SCIENTIST CPT-22879 Fluzone Quadrivalent Intramuscular Suspe nsion 0.5 ML 10:49:13 CDT CPT-60488 First Vx Component - Ix admi n via ID IM or jet inj without physician counseling 15:17:19 FOOD SCIENTIST CPT-30396 Pneumovax 23 15:17:19 FOOD SCIENTIST CPT-85480 Pneumovax 14:52:45 FOOD SCIENTIST CPT-47384 Venipuncture Draw Fee 14:06:30 FOOD SCIENTIST CPT-000 Give Appropriate Flu Vaccine 14:18:34 FOOD SCIENTIST 2 CPT-31632 Administration single or combination vac cine inc oral 14:46:00 FOOD SCIENTIST CPT-48112 Influenza split virus > age 3 14:46:00 FOOD SCIENTIST CPT-OV Office Visit 19:13:16 CDT CPT-77964 Zostavax 18:41:56 CDT CPT-43612 Administration single or combination vac cine inc oral 12:56:39 CDT CPT-97851 Zoster Vaccine (Zostavax) 12:56:39 CDT 2012 CPT-62093 Venipuncture Draw Fee 10:58:57 CDT CPT-19704 Sono pelvis non OB uterus ovaries cervix 17:45:04 CDT CPT-29852 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
--- OUTSIDE RECORDS SUMMARY | 2019-10-27 12:15 | XMS REPORT | Clinical Summary ---
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 ENGINEER Benign neoplasm of colon PERIPHERAL NEUROPATHY [...] ronary atherosclerosis of unspecified type of vessel, [place] or graft OTH NONSPC ABN FINDNG RAD&OTH [...] facility Chronic pain syndrome 338.4 Active Baltazar Ncikerson MD Chronic pain syndrome COLON POLYPS ICD-211.3 Inactive Lolis Barron Medication List Medication Instructions Start Date Stop Date Generic Name NDC Status Provider Patient Instruction TRUEPLUS LANCETS 33G MISC Test twice a day LANCET S 43895722385 Active Baltazar Childers MD Active TRUEDRAW LANCING DEVICE MISC Test twice a day L ANCET DEVICES 41365072361 Active Baltazar Childers MD Active TRUETRACK TEST STRP Test twice a day GLUCOSE BLOO D 12320181225 Active Baltazar Childers MD Active TRUETRACK BLOOD GLUCOSE W/DEVICE KIT Test twice a day BLOOD GLUCOSE MONITORING SUPPL 94733969614 Active Bella Suarez BUILD AUTOMATION ENGINEER Active HYDROCODONE-ACETAMINOPHEN 7.5-325 MG TABS Take 1 tab every 6-8 hour s PRN HYDROCODONE-ACETAMINOPHEN 63142503327 Active Baltazar Childers MD Active NORTRIPTYLINE HCL 50 MG CAPS 1 every night for neuropathy 4 NORTRIPTYLINE HCL 53149441533 Active Baltazar Childers MD Acti ve GABAPENTIN 300 MG CAPS 1 three times a day GABAPE NTIN 68646349140 Active Baltazar Childers MD Active GABAPENTIN 300 MG CAPS 1 po qd x 2 days, then 1 po BID x 2 d ays, then 1 po TID GABAPENTIN 95697470945 No Longer Active Baltazar silverman MD Active TRAMADOL HCL 50 MG TABS 1 twice a day as needed for pain TRAMADOL HCL 88629421727 Active Baltazar Childers MD Active NAPROXEN 500 MG TABS 1 tablet by mouth twice daily NAPROXEN 97467172635 No Longer Active Baltazar Childers MD Active PROAIR HFA 108 (90 BASE) MCG/ACT AERS 2 puffs four times a d ay as needed ALBUTEROL SULFATE 74024781218 Active Baltazar Childers MD Active DEPO-TESTOSTERONE 200 MG/ML OIL as directed RUFINO TOSTERONE CYPIONATE 68141524181 No Longer Active Baltazar Childers MD Active LIPITOR 20 MG TABS Take one by mouth daily in evening ATORVASTATIN CALCIUM 46655995374 No Longer Active Baltazar Childers MD Activ e CRESTOR 10 MG TABS 1 by mouth every day R OSUVASTATIN CALCIUM 61318056646 No Longer Active Baltazar Childers MD Activ e PHENTERMINE HCL 37.5 MG TABS Take one by mouth daily 2 PHENTERMINE HCL 80097908212 No Longer Active Baltazar Childers MD Activ e ROBAXIN-750 750 MG TABS Take one by mouth daily ME THOCARBAMOL 95606511261 Active Baltazar Childers MD Active TIZANIDINE HCL 4 MG TABS 1 daily as needed for muscle spasm 2011 TIZANIDINE HCL 25085761468 No Longer Active Dawna Salazar RN Active ONETOUCH ULTRA BLUE STRP Test twice a day GLUCO SE BLOOD 33698514026 Active Baltazar Childers MD Active OZOLIVZJAG-ZQMU-AWVIWNEH 50-325-40 MG TABS 1 four time s a day as needed for heacache [id number] 85954811741 Active Baltazar Childers MD Active SUMATRIPTAN SUCCINATE 100 MG TABS 1 tablet by mouth at onset of migraine as needed SUMATRIPTAN SUCCINATE 37394877866 Active Baltazar barron MD Active LORATADINE 10 MG TABS Take one by mouth daily LORATADINE 55994363037 Active Baltazar Childers MD Active FUROSEMIDE 40 MG TABS Take one by mouth daily FUROSEMIDE 41615003118 Active Baltazar Childers MD Active LISINOPRIL 20 MG TABS Take one by mouth daily at bedtime LISINOPRIL 61721870759 Active Baltazar Childers MD Active OMEPRAZOLE 20 MG CPDR Take one by mouth daily OMEPRAZOLE 15023054943 Active Baltazar Childers MD Active HYDROXYZINE HCL 25 MG TABS Take one by mouth daily HYDROXYZINE HCL 34152821275 Active Baltazar Childers MD Active GLIPIZIDE 10 MG TABS 1 tablet by mouth twice daily GLIPIZIDE 38681777079 Active Baltazar Childers MD Active ALPRAZOLAM 1 MG TABS 1 tablet by mouth daily at bedtime for restles s leg ALPRAZOLAM 98929798629 Active Baltazar Childers MD Active METFORMIN HCL 1000 MG TABS Take one by mouth twice daily METFORMIN HCL 20692336539 Active Baltazar Childers MD Active TIZANIDINE HCL 4 MG TABS 1 daily as needed for muscle spasm 2011 TIZANIDINE HCL 4 MG TABS 944609 TIZANIDINE HCL Inactiv e PHENTERMINE HCL 37.5 MG TABS Take one by mouth daily 2 PHENTERMINE HCL 37.5 MG TABS 701635 PHENTERMINE HCL Inactive CRESTOR 10 MG TABS 1 by mouth every day C RESTOR 10 MG TABS ROSUVASTATIN CALCIUM Inactive LIPITOR 20 MG TABS Take one by mouth daily in evening LIPITOR 20 MG TABS 580541 ATORVASTATIN CALCIUM Inactive DEPO-TESTOSTERONE 200 MG/ML OIL as directed 8 DEPO-TESTOSTERONE 200 MG/ML OIL 995248 TESTOSTERONE CYPIONATE Inactive NAPROXEN 500 MG TABS 1 tablet by mouth twice daily 201 07/27/22 NAPROXEN 500 MG TABS 330334 NAPROXEN Inactive GABAPENTIN 300 MG CAPS 1 po qd x 2 days, then 1 po BID x 2 d ays, then 1 po TID GABAPENTIN 300 MG CAPS 889446 GABAPENTIN Inact amie Immunizations Vaccine Administration Date Value Standard Floyd cription pneumococcal immunization administered Pneumovax 23 [CVX33] pneumococcal polysaccharide vaccine, 23 valent Seasonal influenza vaccine, injectable, containing preservative, for > 3 years old (Afluria, FluLaval, Fluzone, Fluvirin, Fluarix, Agriflu(>= 18 yo)) Fluzone (>3 yrs.) [[id number]] Influenza, seasonal, inject able Seasonal influenza vaccine, injectable, containing preservative, for > 3 years old (Afluria, FluLaval, Fluzone, Fluvirin, Fluarix, Agriflu(>= 18 yo)) Fluzone (>3 yrs.) [[id number]] Influenza, seasonal, inject able Vital Signs Date [...] - Chem istry sodium, serum 140 mmol/L 930-717 6010/05/05 potassium, serum 4.9 mmol/L 3.5-5.2 chloride, serum [...] Panel - Chemistry sodium, serum 139 mmol/L 978-750 8099/01/20 potassium, serum 5.3 mmol/L 3.5-5.2 chloride, serum [...] mg/g mg/g{creat} 0-29 cholesterol, serum 319 mg/dL 231-276 2961/08/21 triglyceride, serum, fasting 546 mg/dL 30-200 HDL cholesterol, serum 39 mg/dL 32-96 LDL cholesterol, serum 167.00 mg/dL 5.00-130.00 hemoglobin A1C, blood, as % of total hemoglobin 7.7 % 4.3-6.0 sodium, serum 138 mmol/L 467-622 0289/08/21 potassium, serum 4.3 mmol/L 3.5-5.2 chloride, serum [...] 0-19 Encounters Code Encounter Date Provider Facility CPT-99508 Level 4 Est. Patient 11:29:55 CDT [facility] CPT-06916 Level 4 Est. Patient 14:15:19 CDT [facility] CPT-58257 Level 4 Est. Patient 12:20:13 CDT [facility] CPT-11458 Level 4 Est. Patient 14:52:45 MANAGER TRADING Baltazar [facility] CPT-01010 Level 4 Est. Patient 14:18:34 MANAGER TRADING Bal[facility] CPT-08049 Level 4 Est. Patient 15:18:29 CDT [facility] CPT-31983 Level 3 Est. Patient 12:45:34 CDT [facility] CPT-08330 Level 3 Est. Patient 10:10:11 CDT [facility] CPT-02741 Level 3 Est. Patient 14:07:50 CDT [facility] CPT-60749 Level 4 Est. Patient 12:26:10 MANAGER TRADING Balta[facility] CPT-29353 Level 4 Est. Patient 14:45:38 CDT Balta[facility] CPT-87894 Level 4 New Patient 12:30:48 CDT Baltazar hinton [facility] Procedures Code Procedure Name Date Entry Date Standard Desc ription CPT-74366 Venipuncture Draw Fee 12:10:27 MANAGER TRADING CPT-49129 Fluzone Quadrivalent Intramuscular Suspe nsion 0.5 ML 10:49:13 CDT CPT-85813 First Vx Component - Ix admi n via ID IM or jet inj without physician counseling 15:17:19 MANAGER TRADING CPT-78578 Pneumovax 15:17:19 MANAGER TRADING CPT-11661 Pneumovax 14:52:45 MANAGER TRADING CPT-30957 Venipuncture Draw Fee 14:06:30 MANAGER TRADING CPT-000 Give Appropriate Flu Vaccine 14:18:34 MANAGER TRADING 2 CPT-54575 Administration single or combination vac cine inc oral 14:46:00 MANAGER TRADING CPT-29465 Influenza split virus > age 3 14:46:00 MANAGER TRADING CPT-OV Office Visit 19:13:16 CDT CPT-72136 Zostavax 18:41:56 CDT CPT-77523 Administration single or combination vac cine inc oral 12:56:39 CDT CPT-72644 Zoster Vaccine (Zostavax) 12:56:39 CDT 2012 CPT-37392 Venipuncture Draw Fee 10:58:57 CDT CPT-00794 Sono pelvis non OB uterus ovaries cervix 17:45:04 CDT CPT-29464 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
--- OUTSIDE RECORDS SUMMARY | 2019-10-27 12:15 | XMS REPORT | Clinical Summary ---
Author Author Admin, Elba Lance [employer] Address Unknown Phone Unavailable Allergies, Adverse Reactions, [...] Morbid obesity due to excess calories 278.01 [facility] t Baltazar Childers MD Morbid obesity Obesity Class II (BMI 35-39.9) 278.01 Refinement 10/26 Baltazar Childers MD Morbid obesity Morbid obesity due to excess calories 278.01 [facility] t Baltazar Childers MD Morbid [...] and 13 units at night INSULIN GLARGINE 41361776727 Active Baltazar Childers MD Active ONGLYZA 2.5 MG ORAL TABLET 1 daily for diabetes SAXAGLIPTIN HCL 36834896195 Active Baltazar Childers MD Active TRAMADOL HCL 50 MG ORAL TABLET 1 twice a day as needed for pain TRAMADOL HCL 63210488822 No Longer Active Baltazar Childers MD Active ROBAXIN 500 MG ORAL TABLET Take 1.5 (one and one half) tabs once daily METHOCARBAMOL 52549964411 Active Baltazar Childers MD Active SYNTHROID 112 MCG ORAL TABLET Take one tablet a day LEVOTHYROXINE SODIUM 51817998368 Active Baltazar Childers MD Active TRUE METRIX AIR GLUCOSE METER DEVICE Use as directed BLOOD GLUCOSE MONITORING SUPPL 32898195213 Active Baltazar Childers MD Activ e TRUE METRIX BLOOD GLUCOSE TEST IN VITRO STRIP test blood sug ar BID Dx: E11.65 GLUCOSE BLOOD 42805053048 Active KENDALL Juarez Active NORTRIPTYLINE HCL 50 MG ORAL CAPSULE 1 twice a day for neuropathy 2 NORTRIPTYLINE HCL 05266172271 Active Baltazar Childers MD Acti ve ASPIRIN 81 MG TBEC Take one (1) tablet by mouth daily ASPIRIN 54011803342 Active Baltazar Childers MD Active GABAPENTIN 300 MG ORAL CAPSULE 1 three times a day 201 12/03/26 GABAPENTIN 26871274104 No Longer Active Baltazar Childers MD Activ e LISINOPRIL 20 MG ORAL TABLET 1 tablet by mouth daily at night 2016 LISINOPRIL 43577300224 Active Baltazar Childers MD Active ZITHROMAX Z-ISAIAS 250 MG ORAL TABLET Take two tablets to day and then 1 tablet daily for 4 days AZITHROMYCIN 89686172800 No Longer A ctive Baltazar Childers MD Active AMLODIPINE BESYLATE 5 MG ORAL TABLET 1 tab daily for HTN AMLODIPINE BESYLATE 69294980385 Active Baltazar Childers MD Active GLIPIZIDE 10 MG ORAL TABLET take 2 tablets twice daily GLIPIZIDE 58497833009 Active Baltazar Childers MD Active SUCRALFATE 1 GM ORAL TABLET 1 four times a day to coat the stoma ch SUCRALFATE 73664083839 No Longer Active Baltazar Childers MD Active PEN NEEDLES 31G X 6 MM use 1 daily INSULIN PEN NE EDLE 55804724870 Active KENDALL Juarez Active TOUONOFRE SOLOSTAR 300 UNIT/ML SUBCUTANEOUS SOLUTION PEN- INJECTOR 10 units SC daily INSULIN GLARGINE 85722393647 No Longer Active Rola ARGUETA Active NAPROXEN SODIUM 220 MG ORAL TABLET 1 three times a day as needed NAPROXEN SODIUM 61853340719 No Longer Active Baltazar Childers MD Active ATORVASTATIN CALCIUM 20 MG ORAL TABLET Take 1 tab daily ATORVASTATIN CALCIUM 10132616906 Active Baltazar Childers MD A ctive FUROSEMIDE 40 MG ORAL TABLET Take one by mouth daily FUROSEMIDE 52238995606 Active Baltazar Childers MD Active LISINOPRIL 20 MG ORAL TABLET Take one by mouth daily at bedtime LISINOPRIL 87154591281 No Longer Active Baltazar Childers MD Active ONETOUCH ULTRA BLUE IN VITRO STRIP Test twice a day 07/11/11 GLUCOSE BLOOD 11287655338 No Longer Active Baltazar Childers MD Acti ve TRUEPLUS LANCETS 33G Test twice a day LANCETS 5903231 1697 Active KENDALL Juarez Active TRUEDRAW LANCING DEVICE Test twice a day LANCET DEVICES 24479315061 Active Baltazar Childers MD Active TRUETRACK BLOOD GLUCOSE w/Device KIT Test twice a day BLOOD GLUCOSE MONITORING SUPPL 87695266303 Active Baltazar Childers MD Activ e HYDROCODONE-ACETAMINOPHEN 7.5-325 MG ORAL TABLET Take 1 tab every 6-8 hours PRN HYDROCODONE-ACETAMINOPHEN 61856089933 Active Baltazar Nickerson MD Active GABAPENTIN 300 MG ORAL CAPSULE 1 po qd x 2 days, then 1 po BID x 2 days, then 1 po TID GABAPENTIN 31086445392 No Longer Active Baltazar Childers MD Active NAPROXEN 500 MG ORAL TABLET 1 tablet by mouth twice daily NAPROXEN 85784022203 No Longer Active Baltazar Childers MD Active PROAIR HFA 108 (90 Base) MCG/ACT INHALATION AEROSOL SO LUTION 2 puffs four times a day as needed ALBUTEROL SULFATE 61806639211 Active Shun Arellano LPN Active DEPO-TESTOSTERONE 200 MG/ML INTRAMUSCULAR SOLUTION as directed TESTOSTERONE CYPIONATE 20824851802 No Longer Active Baltazar Childers MD Active LIPITOR 20 MG ORAL TABLET Take one by mouth daily in evening ATORVASTATIN CALCIUM 59724295958 No Longer Active Baltazar Childers MD Active CRESTOR 10 MG ORAL TABLET 1 by mouth every day ROSUVASTATIN CALCIUM 01613040160 No Longer Active Baltazar Childers MD Active PHENTERMINE HCL 37.5 MG ORAL TABLET Take one by mouth daily PHENTERMINE HCL 62451173448 No Longer Active Baltazar Childers MD Ac tive TIZANIDINE HCL 4 MG ORAL TABLET 1 daily as needed for muscle spa sm TIZANIDINE HCL 62045968257 No Longer Active Dawna Salazar RN Active [id number] 50-325-40 MG ORAL TABLET 1 fo ur times a day as needed for heacache [id number] 56274245963 Active KENDALL Juarez Active SUMATRIPTAN SUCCINATE 100 MG ORAL TABLET 1 tablet by m outh at onset of migraine as needed SUMATRIPTAN SUCCINATE 42817700178 Active Baltazar Nickerson MD Active LORATADINE 10 MG ORAL TABLET Take one by mouth daily LORATADINE 51747129938 Active Baltazar Chiledrs MD Active OMEPRAZOLE 20 MG ORAL CAPSULE DELAYED RELEASE Take one by mouth jostin ly OMEPRAZOLE 29179562516 Active Baltazar Childers MD Active HYDROXYZINE HCL 25 MG ORAL TABLET Take one by mouth daily HYDROXYZINE HCL 24797017584 Active Baltazar Childers MD Active ALPRAZOLAM 1 MG ORAL TABLET 1 tablet by mouth daily at bedti ma for restless leg ALPRAZOLAM 84357492552 Active Baltazar Childers MD Active METFORMIN HCL 1000 MG ORAL TABLET Take one by mouth twice daily METFORMIN HCL 67008452238 Active Baltazar Childers MD Active TIZANIDINE HCL 4 MG ORAL TABLET 1 daily as needed for muscle spa sm TIZANIDINE HCL 4 MG ORAL TABLET 888115 TIZANIDINE HCL Inactive PHENTERMINE HCL 37.5 MG ORAL TABLET Take one by mouth daily PHENTERMINE HCL 37.5 MG ORAL TABLET 945896 PHENTERMINE HCL Inac tive CRESTOR 10 MG ORAL TABLET 1 by mouth every day CRESTOR 10 MG ORAL TABLET 932588 ROSUVASTATIN CALCIUM Inactive LIPITOR 20 MG ORAL TABLET Take one by mouth daily in evening LIPITOR 20 MG ORAL TABLET 055910 ATORVASTATIN CALCIUM Inactive DEPO-TESTOSTERONE 200 MG/ML INTRAMUSCULAR SOLUTION as directed DEPO-TESTOSTERONE 200 MG/ML INTRAMUSCULAR SOLUTION 4045438 RUFINO TOSTERONE CYPIONATE Inactive NAPROXEN 500 MG ORAL TABLET 1 tablet by mouth twice daily NAPROXEN 500 MG ORAL TABLET 183795 NAPROXEN Inactive GABAPENTIN 300 MG ORAL CAPSULE 1 po qd x 2 days, then 1 po BID x 2 days, then 1 po TID GABAPENTIN 300 MG ORAL CAPSULE 206322 GABAP ENTIN Inactive ONETOUCH ULTRA BLUE IN VITRO STRIP Test twice a day 07/11/11 ONETOUCH ULTRA BLUE IN VITRO STRIP GLUCOSE BLOOD Inact amie NAPROXEN SODIUM 220 MG ORAL TABLET 1 three times a day as needed NAPROXEN SODIUM 220 MG ORAL TABLET 34487642823 NAPROXEN SODI UM Inactive TOUJEO SOLOSTAR 300 UNIT/ML SUBCUTANEOUS SOLUTION PEN- INJECTOR 10 units SC daily TOUJEO SOLOSTAR 300 UNIT/ML SUBCUTANEOUS SOLUTION PEN-INJECTOR INSULIN GLARGINE Inactive SUCRALFATE 1 GM ORAL TABLET 1 four times a day to coat the stoma ch SUCRALFATE 1 GM ORAL TABLET 565766 SUCRALFATE Inac tive GABAPENTIN 300 MG ORAL CAPSULE 1 three times a day 201 12/03/26 GABAPENTIN 300 MG ORAL CAPSULE 721215 GABAPENTIN Inactive TRAMADOL HCL 50 MG ORAL TABLET 1 twice a day as needed for pain TRAMADOL HCL 50 MG ORAL TABLET 892897 TRAMADOL HCL I nactive ZITHROMAX Z-ISAIAS 250 MG ORAL TABLET Take two tablets to day and then 1 tablet daily for 4 days ZITHROMAX Z-ISAIAS 250 MG ORAL TAB LET 639519 AZITHROMYCIN Inactive Immunizations Vaccine Administration Date Value Standard Floyd cription influenza immunization (Flu Vax) has been administered 05/11 Done according to patient influenza virus vaccine, unspecified for mulation pneumococcal immunization administered Pneumovax 23 [CVX33] pneumococcal polysaccharide vaccine, 23 valent Seasonal influenza vaccine, injectable, containing preservative, for > 3 years old (Afluria, FluLaval, Fluzone, Fluvirin, Fluarix, Agriflu(>= 18 yo)) Fluzone (>3 yrs.) [[id number]] Influenza, seasonal, inject able Seasonal influenza vaccine, injectable, containing preservative, for > 3 years old (Afluria, FluLaval, Fluzone, Fluvirin, Fluarix, Agriflu(>= 18 yo)) Fluzone (>3 yrs.) [[id number]] Influenza, seasonal, inject able Vital Signs Date [...] - Chem istry sodium, serum 136 mmol/L 479-648 5938/06/04 potassium, serum 4.9 mmol/L 3.5-5.2 chloride, serum 97 mmol/L 98-107 carbon dioxide, venous blood 35.3 mmol/L 21.0-32 .0 blood glucose 239 mg/dL 65-95 calcium, serum 10.6 mg/dL 8.5-10.1 urea nitrogen, blood 31 mg/dL 7-18 creatinine, serum 2.33 mg/dL 0.60-1.30 Estimated Glomerular Filtration Rate (calc) 23 (?) mL/min/1.73m2 = OR > 60 mL/min sodium, serum 141 mmol/L 761-795 1550/07/09 potassium, serum 4.9 mmol/L 3.5-5.2 chloride, serum [...] 0.40 mg/dL 0.00-1.00 cholesterol, serum 218 mg/dL 685-684 8824/12/18 triglyceride, serum, fasting 357 mg/dL 30-200 HDL cholesterol, serum 49 mg/dL 32-60 LDL cholesterol, serum 103.00 mg/dL 5.00-130.00 hemoglobin A1C, blood, as % of total hemoglobin 8.5 % 4.3-6.0 sodium, serum 142 mmol/L 837-410 9441/12/18 carbon dioxide, venous blood 32.5 mmol/L 21.0-32 [...] Ordered Encounters Code Encounter Date Provider Facility CPT-08154 [id number] Vst-Est Level V 14:28:39 CDT Aneudy Childers MD [facility] CPT-28289 [id number] Vst-Est Level IV 15:03:32 CDT Charlie Childers MD [facility] CPT-06598 29643-Djb Vst-Est Level III 15:51:57 CDT Baltazar Childers MD [facility] CPT-93843 03035-Bja Vst-Est Level IV 15:14:58 CDT Charlie Childers MD [facility]-06384 90926-Gjl Vst-Est Level IV 15:12:52 AUTO ENGINE MECHANIC Charlie Childers MD [facility] CPT-85259 80059-Mhi Vst-Est Level IV 15:30:55 AUTO ENGINE MECHANIC Charlie Childers MD [facility] CPT-45747 43554-Scq Vst-Est Level IV 13:49:06 C DT Ann Martinez [facility] CPT-10161 Level 4 Est. Patient 17:26:08 CDT Ann trujillo [facility] CPT-87725 54061-Nkh Vst-Est Level V 14:26:27 CDT Aneudy Childers MD [facility] CPT-93622 Level 4 Est. Patient 17:05:37 CDT Baltazar Childers MD [facility] CPT-57692 Level 4 Est. Patient 16:21:19 AUTO ENGINE MECHANIC Baltazar Childers MD [facility] CPT-26810 Level 4 Est. Patient 12:25:11 CDT Baltazar Childers MD [facility] CPT-00013 Level 4 Est. Patient 14:22:31 CDT Baltazar Childers MD [facility] CPT-00623 Level 4 Est. Patient 15:44:38 CDT Shonna Parker APRN [facility] CPT-98851 Level 4 Est. Patient 11:34:17 CDT Baltazar Childers MD [facility] CPT-79101 Level 3 Est. Patient 16:40:40 CDT Baltazar Childers MD [facility] CPT-07703 Level 4 Est. Patient 10:41:24 CDT Baltazar Childers MD [facility] CPT-50962 Level 4 Est. Patient 16:01:48 CDT Baltazar Childers MD [facility] CPT-48616 Level 4 Est. Patient 16:54:07 AUTO ENGINE MECHANIC Baltazar Childers MD [facility] CPT-34023 Level 4 Est. Patient 15:42:12 CDT Baltazar Childers MD [facility] CPT-42700 Level 4 Est. Patient 11:29:55 CDT Baltazar Childers MD [facility] CPT-21799 Level 4 Est. Patient 14:15:19 CDT Baltazar Childers MD [facility] CPT-46176 Level 4 Est. Patient 12:20:13 CDT Baltazar Childers MD [facility] CPT-29632 Level 4 Est. Patient 14:52:45 AUT[employer] ENGINE MECHANIC Baltazar Childers MD [facility] CPT-91417 Level 4 Est. Patient 14:18:34 AUTO ENGINE MECHANIC Baltazar Childers MD [facility] CPT-96180 Level 4 Est. Patient 15:18:29 CDT Baltazar Childers MD [facility] CPT-09283 Level 3 Est. Patient 12:45:34 CDT Baltazar Childers MD [facility] CPT-61395 Level 3 Est. Patient 10:10:11 CDT Baltazar Childers MD [facility] CPT-58137 Level 3 Est. Patient 14:07:50 CDT Baltazar Childers MD [facility] CPT-55206 Level 4 Est. Patient 12:26:10 AUTO ENGINE MECHANIC Baltazar Childers MD [facility] CPT-95979 Level 4 Est. Patient 14:45:38 CDT Baltazar Childers MD [facility] CPT-36907 Level 4 New Patient 12:30:48 CDT Baltazar hinton MD [facility] Procedures Code Procedure Name Date Entry Date Standard Desc ription CPT-22777 4M Drug Screen cup test, Multi-panel, urine 2018 14:28:39 CDT CPT-57942 Venipuncture Draw Fee 15:19:00 CDT CPT-000 Give Appropriate Flu Vaccine 12:25:14 CDT 2 CPT-34804 First Vx - Ix admin via ID I M or jet injects without counseling by physician 13:08:59 CDT CPT-88064 Fluzone Quadrivalent Intramuscular Suspe nsion 0.5 ML 13:08:59 CDT CPT-99007 Venipuncture Draw Fee 12:04:12 CDT CPT-29645 Lipid - LAB USE ONLY 17:39:15 AUTO ENGINE MECHANIC 9 CPT-02100 HGBA1C - LAB USE ONLY 17:39:15 AUTO ENGINE MECHANIC CPT-40995 CMP - LAB USE ONLY 17:39:14 AUTO ENGINE MECHANIC CPT-48471 Venipuncture Draw Fee 17:39:14 AUTO ENGINE MECHANIC CPT-60307 First Vx - Ix admin via ID I M or jet injects without counseling by physician 16:55:17 AUTO ENGINE MECHANIC CPT-40304 Fluzone Quadrivalent Intramuscular Suspe nsion 0.5 ML 16:55:17 AUTO ENGINE MECHANIC CPT-72686 Renal Panel - LAB USE ONLY 17:39:20 CDT 201 10/31/07 CPT-86028 CBC - LAB USE ONLY 17:39:20 CDT CPT-04763 Venipuncture Draw Fee 17:39:20 CDT CPT-23486 Venipuncture Draw Fee 14:33:30 CDT CPT-51057 Renal Panel - LAB USE ONLY 14:33:30 CDT 201 10/31/07 CPT-29785 CBC - LAB USE ONLY 14:33:29 CDT CPT-28499 Venipuncture Draw Fee 14:50:21 AUTO ENGINE MECHANIC CPT-34003 Immunization Single Admin 17:35:35 CDT 2014 CPT-61642 Fluzone Quadrivalent preservative free ( >=3yrs.) 17:35:35 CDT CPT-13583 Venipuncture Draw Fee 12:10:27 AUTO ENGINE MECHANIC CPT-45385 Fluzone Quadrivalent Intramuscular Suspe nsion 0.5 ML 10:49:13 CDT CPT-90274 First Vx Component - Ix admi n via ID IM or jet inj without physician counseling 15:17:19 AUTO ENGINE MECHANIC CPT-35267 Pneumovax 23 15:17:19 AUTO ENGINE MECHANIC CPT-25835 Pneumovax 14:52:45 AUTO ENGINE MECHANIC CPT-27005 Venipuncture Draw Fee 14:06:30 AUTO ENGINE MECHANIC CPT-000 Give Appropriate Flu Vaccine 14:18:34 AUTO ENGINE MECHANIC 2 CPT-93885 Administration single or combination vac cine inc oral 14:46:00 AUTO ENGINE MECHANIC CPT-44912 Influenza split virus > age 3 14:46:00 AUTO ENGINE MECHANIC CPT-OV Office Visit 19:13:16 CDT CPT-97489 Zostavax 18:41:56 CDT CPT-60581 Administration single or combination vac cine inc oral 12:56:39 CDT CPT-76994 Zoster Vaccine (Zostavax) 12:56:39 CDT 2012 CPT-51847 Venipuncture Draw Fee 10:58:57 CDT CPT-08588 Sono pelvis non OB uterus ovaries cervix 17:45:04 CDT CPT-07754 Sono retroperitoneal complete kidneys an d bladder 17:14:36 CDT CPT-OV Office Visit 14:59:38 AUTO ENGINE MECHANIC CPT-J1070 Depo Testosterone 100 mg 14:50:13 CDT 03/05 CPT-13282 Abx/Therapy Injection 14:50:13 CDT CPT-61849 Administration single or combination vac cine inc oral 14:34:43 CDT CPT-12997 Influenza split virus > age 3 14:34:43 CDT CPT-J1070 Depo Testosterone 100 mg 17:37:13 CDT 01/11 CPT-31879 Abx/Therapy Injection 17:37:13 CDT CPT-83095 Venipuncture Draw Fee 16:30:13 CDT CPT-97865 Venipuncture Draw Fee 16:29:43 CDT CPT-J1070 Depo Testosterone 100 mg 14:45:38 CDT 01/11
--- OUTSIDE RECORDS SUMMARY | 2019-10-27 12:16 | XMS REPORT | Clinical Summary ---
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 Benign neoplasm of colon PERIPHERAL NEUROPATHY 356.9 [...] a day as needed 2 NAPROXEN SODIUM 50639505035 No Longer Active Baltazar Childers MD Active ATORVASTATIN CALCIUM 20 MG ORAL TABS Take 1 tab daily ATORVASTATIN CALCIUM 31663063238 Active Kelly Iraheta LPN Active FUROSEMIDE 40 MG TABS Take one by mouth daily FUROSEMIDE 64666309056 Active Baltazar Childers MD Active LISINOPRIL 20 MG TABS Take one by mouth daily at bedtime LISINOPRIL 63112533312 Active KENDALL Juarez Active ONETOUCH ULTRA BLUE STRP Test twice a day GLUCO SE BLOOD 57459729829 No Longer Active Baltazar Childers MD Active TRUEPLUS LANCETS 33G MISC Test twice a day LANCET S 41001539285 Active KENDALL Juarez Active TRUEDRAW LANCING DEVICE MISC Test twice a day L ANCET DEVICES 14667869634 Active Baltazar Childers MD Active TRUETRACK TEST STRP Test twice a day GLUCOSE BLOO D 10427278631 Active Baltazar Childers MD Active TRUETRACK BLOOD GLUCOSE W/DEVICE KIT Test twice a day BLOOD GLUCOSE MONITORING SUPPL 40995590366 Active Baltazar Childers MD Activ e HYDROCODONE-ACETAMINOPHEN 7.5-325 MG TABS Take 1 tab every 6-8 hour s PRN HYDROCODONE-ACETAMINOPHEN 05983218466 Active Baltazar Childers MD Active NORTRIPTYLINE HCL 50 MG CAPS 1 every night for neuropathy 4 NORTRIPTYLINE HCL 39082292674 Active Baltazar Childers MD Acti ve GABAPENTIN 300 MG CAPS 1 three times a day GABAPE NTIN 32544461130 Active KENDALL Juarez Active GABAPENTIN 300 MG CAPS 1 po qd x 2 days, then 1 po BID x 2 d ays, then 1 po TID GABAPENTIN 09136867144 No Longer Active Baltazar silverman MD Active TRAMADOL HCL 50 MG TABS 1 twice a day as needed for pain TRAMADOL HCL 49222202033 Active Baltazar Childers MD Active NAPROXEN 500 MG TABS 1 tablet by mouth twice daily NAPROXEN 88730515124 No Longer Active Baltazar Childers MD Active PROAIR HFA 108 (90 BASE) MCG/ACT AERS 2 puffs four times a d ay as needed ALBUTEROL SULFATE 71622513809 Active KENDALL Juarez Active DEPO-TESTOSTERONE 200 MG/ML OIL as directed RUFINO TOSTERONE CYPIONATE 63936811427 No Longer Active Baltazar Childers MD Active LIPITOR 20 MG TABS Take one by mouth daily in evening ATORVASTATIN CALCIUM 86229487985 No Longer Active Baltazar Childers MD Activ e CRESTOR 10 MG TABS 1 by mouth every day R OSUVASTATIN CALCIUM 73341267022 No Longer Active Baltazar Childers MD Activ e PHENTERMINE HCL 37.5 MG TABS Take one by mouth daily 2 PHENTERMINE HCL 45806521126 No Longer Active Baltazar Childers MD Activ e ROBAXIN-750 750 MG TABS Take one by mouth daily ME THOCARBAMOL 94411722349 Active Baltazar Childers MD Active TIZANIDINE HCL 4 MG TABS 1 daily as needed for muscle spasm 2011 TIZANIDINE HCL 22272370094 No Longer Active Dawna Salazar RN Active [id number] 50-325-40 MG TABS 1 four time s a day as needed for heacache [id number] 52351446677 Active Baltazar Childers MD Active SUMATRIPTAN SUCCINATE 100 MG TABS 1 tablet by mouth at onset of migraine as needed SUMATRIPTAN SUCCINATE 29935451689 Active KENDALL Juarez Active LORATADINE 10 MG TABS Take one by mouth daily LORATADINE 54866044949 Active Baltazar Childers MD Active OMEPRAZOLE 20 MG CPDR Take one by mouth daily OMEPRAZOLE 47421436491 Active Baltazar Childers MD Active HYDROXYZINE HCL 25 MG TABS Take one by mouth daily HYDROXYZINE HCL 77519930928 Active Baltazar Childers MD Active GLIPIZIDE 10 MG TABS 1 tablet by mouth twice daily GLIPIZIDE 99753449813 Active Bella Suarez APRN Active ALPRAZOLAM 1 MG TABS 1 tablet by mouth daily at bedtime for restles s leg ALPRAZOLAM 30504460943 Active Baltazar Childers MD Active METFORMIN HCL 1000 MG TABS Take one by mouth twice daily METFORMIN HCL 12773181223 Active Baltazar Childers MD Active NAPROXEN 500 MG TABS 1 tablet by mouth twice daily 201 07/27/22 NAPROXEN 500 MG TABS 489669 NAPROXEN Inactive PHENTERMINE HCL 37.5 MG TABS Take one by mouth daily 2 PHENTERMINE HCL 37.5 MG TABS 128350 PHENTERMINE HCL Inactive NAPROXEN SODIUM 220 MG ORAL TABS 1 three times a day as needed 2 NAPROXEN SODIUM 220 MG ORAL TABS 616304 NAPROXEN SODIUM Inactive TIZANIDINE HCL 4 MG TABS 1 daily as needed for muscle spasm 2011 TIZANIDINE HCL 4 MG TABS 698429 TIZANIDINE HCL Inactiv e GABAPENTIN 300 MG CAPS 1 po qd x 2 days, then 1 po BID x 2 d ays, then 1 po TID GABAPENTIN 300 MG CAPS 702873 GABAPENTIN Inact amie LIPITOR 20 MG TABS Take one by mouth daily in evening LIPITOR 20 MG TABS 910105 ATORVASTATIN CALCIUM Inactive ONETOUCH ULTRA BLUE STRP Test twice a day ONETOUCH ULTRA BLUE STRP GLUCOSE BLOOD Inactive CRESTOR 10 MG TABS 1 by mouth every day C RESTOR 10 MG TABS ROSUVASTATIN CALCIUM Inactive DEPO-TESTOSTERONE 200 MG/ML OIL as directed 8 DEPO-TESTOSTERONE 200 MG/ML OIL 116605 TESTOSTERONE CYPIONATE Inactive Immunizations Vaccine Administration Date Value Standard Floyd cription pneumococcal immunization administered Pneumovax 23 [CVX33] pneumococcal polysaccharide vaccine, 23 valent Seasonal influenza vaccine, injectable, containing preservative, for > 3 years old (Afluria, FluLaval, Fluzone, Fluvirin, Fluarix, Agriflu(>= 18 yo)) Fluzone (>3 yrs.) [[id number]] Influenza, seasonal, inject able Seasonal influenza vaccine, injectable, containing preservative, for > 3 years old (Afluria, FluLaval, Fluzone, Fluvirin, Fluarix, Agriflu(>= 18 yo)) Fluzone (>3 yrs.) [[id number]] Influenza, seasonal, inject able Vital Signs Date [...] Metabolic Panel - Chem istry blood glucose 132 mg/dL 65-110 carbon dioxide, venous blood 34.3 mmol/L 21.0-32 .0 chloride, serum 99 mmol/L 98-107 calcium, serum 10.1 mg/dL 8.5-10.1 urea nitrogen, blood 23 mg/dL 7-18 creatinine, serum 2.00 mg/dL 0.60-1.30 potassium, serum 4.9 mmol/L 3.5-5.2 sodium, serum 140 mmol/L 136-145 Lab Report: CBC, HGBA1C, Renal Panel - C hemistry carbon dioxide, venous blood 36.7 mmol/L 21.0-32 .0 creatinine, serum 2.02 mg/dL 0.55-1.30 blood glucose 181 mg/dL 65-110 urea nitrogen, blood 24 mg/dL 7-18 calcium, serum 9.4 mg/dL 8.5-10.1 hemoglobin A1C, blood, as % of total hemoglobin 7.9 % 4.3-6.0 sodium, serum 139 mmol/L 133-344 8632/02/04 potassium, serum 5.4 mmol/L 3.5-5.2 chloride, serum 99 mmol/L 98-107 Lab Report: CBC, HGBA1C, Renal Panel - [...] Panel - Chemistry sodium, serum 138 mmol/L 759-525 0392/11/23 carbon dioxide, venous blood 32.4 mmol/L 21.0-32 .0 potassium, serum 5.7 mmol/L 3.5-5.2 chloride, serum 98 mmol/L 98-107 blood glucose 136 mg/dL 65-110 urea nitrogen, blood 18 mg/dL 7-18 creatinine, serum 1.71 mg/dL 0.55-1.30 alanine aminotransferase (SGPT), serum 71 U/L 12-78 aspartate aminotransferase (SGOT), serum 34 U/L 15-37 calcium, serum 9.4 mg/dL 8.5-10.1 bilirubin, serum, total 0.40 mg/dL 0.00-1.00 cholesterol, serum 405 mg/dL 460-941 3894/11/23 triglyceride, serum, fasting 709 mg/dL 30-200 HDL [...] mg/dL Encounters Code Encounter Date Provider Facility CPT-69406 Level 4 Est. Patient 16:54:07 DIRECTOR MBA Baltazar Childers MD [facility] CPT-14410 Level 4 Est. Patient 15:42:12 CDT Baltazar Childers MD [facility] CPT-39294 Level 4 Est. Patient 11:29:55 CDT Baltazar Childers MD [facility] CPT-37620 Level 4 Est. Patient 14:15:19 CDT Baltazar Childers MD [facility] CPT-87358 Level 4 Est. Patient 12:20:13 CDT Baltazar Childers MD [facility] CPT-64536 Level 4 Est. Patient 14:52:45 DIRECTOR MBA Baltazar Childers MD [facility] CPT-27897 Level 4 Est. Patient 14:18:34 DIRECTOR MBA Baltazar Childers MD [facility] CPT-06771 Level 4 Est. Patient 15:18:29 CDT Baltazar Childers MD [facility] CPT-21839 Level 3 Est. Patient 12:45:34 CDT Baltazar Childers MD [facility] CPT-31723 Level 3 Est. Patient 10:10:11 CDT Baltazar Childers MD [facility] CPT-75875 Level 3 Est. Patient 14:07:50 CDT Baltazar Childers MD [facility] CPT-55947 Level 4 Est. Patient 12:26:10 DIRECTOR MBA Baltazar Childers MD [facility] CPT-82859 Level 4 Est. Patient 14:45:38 CDT Baltazar Childers MD [facility] CPT-87437 Level 4 New Patient 12:30:48 CDT Baltazar hinton MD [facility] Procedures Code Procedure Name Date Entry Date Standard Desc ription CPT-53918 Venipuncture Draw Fee 14:50:21 DIRECTOR MBA CPT-40536 Immunization Single Admin 17:35:35 CDT 2014 CPT-49283 Fluzone Quadrivalent preservative free ( >=3yrs.) 17:35:35 CDT CPT-12833 Venipuncture Draw Fee 12:10:27 DIRECTOR MBA CPT-23782 Fluzone Quadrivalent Intramuscular Suspe nsion 0.5 ML 10:49:13 CDT CPT-03003 First Vx Component - Ix admi n via ID IM or jet inj without physician counseling 15:17:19 DIRECTOR MBA CPT-74333 Pneumovax 23 15:17:19 DIRECTOR MBA CPT-47232 Pneumovax 14:52:45 DIRECTOR MBA CPT-97919 Venipuncture Draw Fee 14:06:30 DIRECTOR MBA CPT-000 Give Appropriate Flu Vaccine 14:18:34 DIRECTOR MBA 2 CPT-84877 Administration single or combination vac cine inc oral 14:46:00 DIRECTOR MBA CPT-22824 Influenza split virus > age 3 14:46:00 DIRECTOR MBA CPT-OV Office Visit 19:13:16 CDT CPT-54873 Zostavax 18:41:56 CDT CPT-75460 Administration single or combination vac cine inc oral 12:56:39 CDT CPT-32266 Zoster Vaccine (Zostavax) 12:56:39 CDT 2012 CPT-40490 Venipuncture Draw Fee 10:58:57 CDT CPT-63745 Sono pelvis non OB uterus ovaries cervix 17:45:04 CDT CPT-07269 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
--- OUTSIDE RECORDS SUMMARY | 2019-10-27 12:16 | XMS REPORT | Clinical Summary ---
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 Benign neoplasm of colon PERIPHERAL NEUROPATHY 356.9 [...] ronary atherosclerosis of unspecified type of vessel, [place] or graft OTH NONSPC ABN FINDNG RAD&OTH [...] day to coat the stomach 2015 SUCRALFATE [id number] No Longer Active Baltazar Childers MD Active PEN NEEDLES 31G X 6 MM MISC use 1 daily INSULIN PEN NEEDLE 09035849122 Active Bella Suarez APPLICATION PENETRATION TESTER Active TOUJEO SOLOSTAR 300 UNIT/ML SC SOPN 10 units SC daily INSULIN GLARGINE 06267027189 No Longer Active Martita Godienz RMA Active LANTUS SOLOSTAR 100 UNIT/ML SC SOPN 10 units SC daily INSULIN GLARGINE 11126596172 Active Baltazar Childers MD Active NAPROXEN SODIUM 220 MG ORAL TABS 1 three times a day as needed 2 NAPROXEN SODIUM 86867475566 No Longer Active Baltazar Childers MD Active ATORVASTATIN CALCIUM 20 MG ORAL TABS Take 1 tab daily ATORVASTATIN CALCIUM 33983504027 Active Baltazar Childers MD Active FUROSEMIDE 40 MG TABS Take one by mouth daily FUROSEMIDE 03563491978 Active Baltazar Childers MD Active LISINOPRIL 20 MG TABS Take one by mouth daily at bedtime LISINOPRIL 79022785100 Active Baltazar Childers MD Active ONETOUCH ULTRA BLUE STRP Test twice a day GLUCO SE BLOOD 60002000712 No Longer Active Baltazar Childers MD Active TRUEPLUS LANCETS 33G MISC Test twice a day LANCET S 60747978430 Active KENDALL Juarez Active TRUEDRAW LANCING DEVICE MISC Test twice a day L ANCET DEVICES 49531515194 Active Baltazar Childers MD Active TRUETRACK TEST STRP Test twice a day GLUCOSE BLOO D 82383044017 Active KENDALL Juarez Active TRUETRACK BLOOD GLUCOSE W/DEVICE KIT Test twice a day BLOOD GLUCOSE MONITORING SUPPL 97005881862 Active Baltazar Childers MD Activ e HYDROCODONE-ACETAMINOPHEN 7.5-325 MG TABS Take 1 tab every 6-8 hour s PRN HYDROCODONE-ACETAMINOPHEN 53915814558 Active Baltazar Childers MD Active NORTRIPTYLINE HCL 50 MG CAPS 1 every night for neuropathy 4 NORTRIPTYLINE HCL 33558705384 Active Baltazar Childers MD Acti ve GABAPENTIN 300 MG CAPS 1 three times a day GABAPE NTIN 08438257220 Active Baltazar Childers MD Active GABAPENTIN 300 MG CAPS 1 po qd x 2 days, then 1 po BID x 2 d ays, then 1 po TID GABAPENTIN 92593026324 No Longer Active Baltazar silverman MD Active TRAMADOL HCL 50 MG TABS 1 twice a day as needed for pain TRAMADOL HCL 46089803099 Active Baltazar Childers MD Active NAPROXEN 500 MG TABS 1 tablet by mouth twice daily NAPROXEN 19459968782 No Longer Active Baltazar Childers MD Active PROAIR HFA 108 (90 BASE) MCG/ACT AERS 2 puffs four times a d ay as needed ALBUTEROL SULFATE 47688022019 Active KENDALL Juarez Active DEPO-TESTOSTERONE 200 MG/ML OIL as directed RUFINO TOSTERONE CYPIONATE 65027825316 No Longer Active Baltazar Childers MD Active LIPITOR 20 MG TABS Take one by mouth daily in evening ATORVASTATIN CALCIUM 55936301129 No Longer Active Baltazar Childers MD Activ e CRESTOR 10 MG TABS 1 by mouth every day R OSUVASTATIN CALCIUM 24883611590 No Longer Active Baltazar Childers MD Activ e PHENTERMINE HCL 37.5 MG TABS Take one by mouth daily 2 PHENTERMINE HCL 58815268509 No Longer Active Baltazar Childers MD Activ e ROBAXIN-750 750 MG TABS Take one by mouth daily ME THOCARBAMOL 10061995485 Active Baltazar Childers MD Active TIZANIDINE HCL 4 MG TABS 1 daily as needed for muscle spasm 2011 TIZANIDINE HCL 38344552766 No Longer Active Dawna Salazar RN Active [id number]-[id number] 50-325-40 MG TABS 1 four time s a day as needed for heacache [id number] 37212599268 Active Baltazar Childers MD Active SUMATRIPTAN SUCCINATE 100 MG TABS 1 tablet by mouth at onset of migraine as needed SUMATRIPTAN SUCCINATE 76101378203 Active Baltazar bynum MD Active LORATADINE 10 MG TABS Take one by mouth daily LORATADINE 22127762089 Active Baltazar Childers MD Active OMEPRAZOLE 20 MG CPDR Take one by mouth daily OMEPRAZOLE 62900202756 Active Baltazar Childers MD Active HYDROXYZINE HCL 25 MG TABS Take one by mouth daily HYDROXYZINE HCL 40060973499 Active Baltazar Childers MD Active GLIPIZIDE 10 MG TABS 1 tablet by mouth twice daily GLIPIZIDE 50579441846 Active Baltazar Childers MD Active ALPRAZOLAM 1 MG TABS 1 tablet by mouth daily at bedtime for restles s leg ALPRAZOLAM 75597531432 Active Baltazar Childers MD Active METFORMIN HCL 1000 MG TABS Take one by mouth twice daily METFORMIN HCL 46791683257 Active Baltazar Childers MD Active TIZANIDINE HCL 4 MG TABS 1 daily as needed for muscle spasm 2011 TIZANIDINE HCL 4 MG TABS 220765 TIZANIDINE HCL Inactiv e PHENTERMINE HCL 37.5 MG TABS Take one by mouth daily 2 PHENTERMINE HCL 37.5 MG TABS 507382 PHENTERMINE HCL Inactive CRESTOR 10 MG TABS 1 by mouth every day C RESTOR 10 MG TABS 644854 ROSUVASTATIN CALCIUM Inactive LIPITOR 20 MG TABS Take one by mouth daily in evening LIPITOR 20 MG TABS 643881 ATORVASTATIN CALCIUM Inactive DEPO-TESTOSTERONE 200 MG/ML OIL as directed 8 DEPO-TESTOSTERONE 200 MG/ML OIL 811366 TESTOSTERONE CYPIONATE Inactive NAPROXEN 500 MG TABS 1 tablet by mouth twice daily 201 07/27/22 NAPROXEN 500 MG TABS 912642 NAPROXEN Inactive GABAPENTIN 300 MG CAPS 1 po qd x 2 days, then 1 po BID x 2 d ays, then 1 po TID GABAPENTIN 300 MG CAPS 492766 GABAPENTIN Inact amie ONETOUCH ULTRA BLUE STRP Test twice a day ONETOUCH ULTRA BLUE STRP GLUCOSE BLOOD Inactive NAPROXEN SODIUM 220 MG ORAL TABS 1 three times a day as needed 2 NAPROXEN SODIUM 220 MG ORAL TABS 590632 NAPROXEN SODIUM Inactive TOUJEO SOLOSTAR 300 UNIT/ML SC SOPN 10 units SC daily TOUJEO SOLOSTAR 300 UNIT/ML SC SOPN INSULIN GLARGINE Inac tive SUCRALFATE 1 GM TABS 1 four times a day to coat the stomach 2015 SUCRALFATE 1 GM TABS 525655 SUCRALFATE Inactive Immunizations Vaccine Administration Date Value Standard Floyd cription pneumococcal immunization administered Pneumovax 23 [CVX33] pneumococcal polysaccharide vaccine, 23 valent Seasonal influenza vaccine, injectable, containing preservative, for > 3 years old (Afluria, FluLaval, Fluzone, Fluvirin, Fluarix, Agriflu(>= 18 yo)) Fluzone (>3 yrs.) [[id number]] Influenza, seasonal, inject able Seasonal influenza vaccine, injectable, containing preservative, for > 3 years old (Afluria, FluLaval, Fluzone, Fluvirin, Fluarix, Agriflu(>= 18 yo)) Fluzone (>3 yrs.) [[id number]] Influenza, seasonal, inject able Vital Signs Date [...] C - Chemistry sodium, serum 139 mmol/L 388-037 9711/07/07 potassium, serum 4.5 mmol/L 3.5-5.2 chloride, serum [...] 7.9 % 4.3-6.0 sodium, serum 139 mmol/L 858-069 8045/02/04 potassium, serum 5.4 mmol/L 3.5-5.2 chloride, serum [...] count 308 10^3/MM^3 10*3/mm3 142-424 Lab Report: HGBA1C - Chemistry hemoglobin A1C, blood, as % of total hemoglobin 7.3 % 4.3-6.0 Lab Report: Renal Panel - Chemistry sodium, serum 141 mmol/L 070-838 0850/08/08 potassium, serum 4.9 mmol/L 3.5-5.2 chloride, serum [...] mg/dL Encounters Code Encounter Date Provider Facility CPT-82923 Level 4 Est. Patient 11:34:17 CDT Baltazar Childers MD [facility]-78107 Level 3 Est. Patient 16:40:40 CDT Baltazar Childers MD [facility] CPT-36755 Level 4 Est. Patient 10:41:24 CDT Baltazar Childers MD [facility]-67943 Level 4 Est. Patient 16:01:48 CDT Baltazar Childers MD [facility] CPT-13965 Level 4 Est. Patient 16:54:07 HPLC CHEMIST Baltazar Childers MD [facility]-72581 Level 4 Est. Patient 15:42:12 CDT Baltazar Childers MD [facility] CPT-14232 Level 4 Est. Patient 11:29:55 CDT Baltazar Childers MD [facility] CPT-00782 Level 4 Est. Patient 14:15:19 CDT Baltazar Childers MD [facility] CPT-13151 Level 4 Est. Patient 12:20:13 CDT Baltazar Childers MD [facility] CPT-82316 Level 4 Est. Patient 14:52:45 HPLC CHEMIST Baltazar Childers MD [facility]-32749 Level 4 Est. Patient 14:18:34 HPLC CHEMIST Baltazar Childers MD [facility] CPT-53986 Level 4 Est. Patient 15:18:29 CDT Baltazar Childers MD [facility] CPT-84839 Level 3 Est. Patient 12:45:34 CDT Baltazar Childers MD [facility] CPT-11636 Level 3 Est. Patient 10:10:11 CDT Baltazar Childers MD [facility]-63970 Level 3 Est. Patient 14:07:50 CDT Baltazar Cihlders MD [facility] CPT-82548 Level 4 Est. Patient 12:26:10 HPLC CHEMIST Baltazar Childers MD [facility] CPT-58484 Level 4 Est. Patient 14:45:38 CDT Baltazar Childers MD [facility] CPT-01558 Level 4 New Patient 12:30:48 CDT Baltazar hinton MD [facility] Procedures Code Procedure Name Date Entry Date Standard Desc ription CPT-59965 Lipid - LAB USE ONLY 17:39:15 HPLC CHEMIST 9 CPT-49943 HGBA1C - LAB USE ONLY 17:39:15 HPLC CHEMIST CPT-72595 CMP - LAB USE ONLY 17:39:14 HPLC CHEMIST CPT-52926 Venipuncture Draw Fee 17:39:14 HPLC CHEMIST CPT-98825 First Vx - Ix admin via ID I M or jet injects without counseling by physician 16:55:17 HPLC CHEMIST CPT-12806 Fluzone Quadrivalent Intramuscular Suspe nsion 0.5 ML 16:55:17 HPLC CHEMIST CPT-45716 Renal Panel - LAB USE ONLY 17:39:20 CDT 201 10/31/07 CPT-71646 CBC - LAB USE ONLY 17:39:20 CDT CPT-45297 Venipuncture Draw Fee 17:39:20 CDT CPT-94373 Venipuncture Draw Fee 14:33:30 CDT CPT-35825 Renal Panel - LAB USE ONLY 14:33:30 CDT 201 10/31/07 CPT-44086 CBC - LAB USE ONLY 14:33:29 CDT CPT-91661 Venipuncture Draw Fee 14:50:21 HPLC CHEMIST CPT-32349 Immunization Single Admin 17:35:35 CDT 2014 CPT-57788 Fluzone Quadrivalent preservative free ( >=3yrs.) 17:35:35 CDT CPT-19606 Venipuncture Draw Fee 12:10:27 HPLC CHEMIST CPT-89188 Fluzone Quadrivalent Intramuscular Suspe nsion 0.5 ML 10:49:13 CDT CPT-35744 First Vx Component - Ix admi n via ID IM or jet inj without physician counseling 15:17:19 HPLC CHEMIST CPT-24790 Pneumovax 23 15:17:19 HPLC CHEMIST CPT-64200 Pneumovax 14:52:45 HPLC CHEMIST CPT-61544 Venipuncture Draw Fee 14:06:30 HPLC CHEMIST CPT-000 Give Appropriate Flu Vaccine 14:18:34 HPLC CHEMIST 2 CPT-02303 Administration single or combination vac cine inc oral 14:46:00 HPLC CHEMIST CPT-75451 Influenza split virus > age 3 14:46:00 HPLC CHEMIST CPT-OV Office Visit 19:13:16 CDT CPT-42766 Zostavax 18:41:56 CDT CPT-65212 Administration single or combination vac cine inc oral 12:56:39 CDT CPT-16909 Zoster Vaccine (Zostavax) 12:56:39 CDT 2012 CPT-59576 Venipuncture Draw Fee 10:58:57 CDT CPT-69300 Sono pelvis non OB uterus ovaries cervix 17:45:04 CDT CPT-55582 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
--- OUTSIDE RECORDS SUMMARY | 2019-10-27 12:16 | XMS REPORT | Clinical Summary ---
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 Benign neoplasm of colon PERIPHERAL NEUROPATHY 356.9 [...] III 585.3 Active 201 10/25/03 Elbamargarette Ryan CÉSARA Chronic kidney disease, Stage III [...] complication, type II or unspecified type, uncontrolled COLON POLYPS ICD-211.3 Inactive Lolis Thomas APR N Medication List Medication Instructions Start Date Stop Date Generic Name NDC Status Provider Patient Instruction PEN NEEDLES 31G X 6 MM MISC use 1 daily INSULIN PEN NEEDLE 25241413865 Active Martita Herbert RMA Active TOUJEO SOLOSTAR 300 UNIT/ML SC SOPN 10 units SC daily INSULIN GLARGINE 40223306181 No Longer Active Martita Herbert RMA Active LANTUS SOLOSTAR 100 UNIT/ML SC SOPN 10 units SC daily INSULIN GLARGINE 38923497176 Active Martita Herbert RMA Active NAPROXEN SODIUM 220 MG ORAL TABS 1 three times a day as needed 2 NAPROXEN SODIUM 41965912936 No Longer Active Baltazar Childers MD Active ATORVASTATIN CALCIUM 20 MG ORAL TABS Take 1 tab daily ATORVASTATIN CALCIUM 84758921043 Active KENDALL Juarez Active FUROSEMIDE 40 MG TABS Take one by mouth daily FUROSEMIDE 93458674407 Active Baltazar Childers MD Active LISINOPRIL 20 MG TABS Take one by mouth daily at bedtime LISINOPRIL 09530245926 Active Baltazar Childers MD Active ONETOUCH ULTRA BLUE STRP Test twice a day GLUCO SE BLOOD 15344418571 No Longer Active Baltazar Childers MD Active TRUEPLUS LANCETS 33G MISC Test twice a day LANCET S 68258166223 Active KENDALL Juarez Active TRUEDRAW LANCING DEVICE MISC Test twice a day L ANCET DEVICES 78561609496 Active Baltazar Childers MD Active TRUETRACK TEST STRP Test twice a day GLUCOSE BLOO D 62826167982 Active KENDALL Juarez Active TRUETRACK BLOOD GLUCOSE W/DEVICE KIT Test twice a day BLOOD GLUCOSE MONITORING SUPPL 26433439568 Active Baltazar Childers MD Activ e HYDROCODONE-ACETAMINOPHEN 7.5-325 MG TABS Take 1 tab every 6-8 hour s PRN HYDROCODONE-ACETAMINOPHEN 58861932256 Active Baltazar Childers MD Active NORTRIPTYLINE HCL 50 MG CAPS 1 every night for neuropathy 4 NORTRIPTYLINE HCL 91134139610 Active Baltazar Childers MD Acti ve GABAPENTIN 300 MG CAPS 1 three times a day GABAPE NTIN 06315815604 Active Baltazar Childers MD Active GABAPENTIN 300 MG CAPS 1 po qd x 2 days, then 1 po BID x 2 d ays, then 1 po TID GABAPENTIN 43531191716 No Longer Active Baltazar silverman MD Active TRAMADOL HCL 50 MG TABS 1 twice a day as needed for pain TRAMADOL HCL 23466701834 Active Baltazar Childers MD Active NAPROXEN 500 MG TABS 1 tablet by mouth twice daily NAPROXEN 71451978876 No Longer Active Baltazar Childers MD Active PROAIR HFA 108 (90 BASE) MCG/ACT AERS 2 puffs four times a d ay as needed ALBUTEROL SULFATE 68892927427 Active KENDALL Juarez Active DEPO-TESTOSTERONE 200 MG/ML OIL as directed RUFINO TOSTERONE CYPIONATE 02854721439 No Longer Active Baltazar Childers MD Active LIPITOR 20 MG TABS Take one by mouth daily in evening ATORVASTATIN CALCIUM 38660190008 No Longer Active Baltazar Childers MD Activ e CRESTOR 10 MG TABS 1 by mouth every day R OSUVASTATIN CALCIUM 64335089647 No Longer Active Baltazar Childers MD Activ e PHENTERMINE HCL 37.5 MG TABS Take one by mouth daily 2 PHENTERMINE HCL 21943883753 No Longer Active Baltazar Childers MD Activ e ROBAXIN-750 750 MG TABS Take one by mouth daily ME THOCARBAMOL 16880602805 Active Baltazar Childers MD Active TIZANIDINE HCL 4 MG TABS 1 daily as needed for muscle spasm 2011 TIZANIDINE HCL 90289383435 No Longer Active Dawna Salazar RN Active [id number] 50-325-40 MG TABS 1 four time s a day as needed for heacache [id number] 81467465505 Active Baltazar Childers MD Active SUMATRIPTAN SUCCINATE 100 MG TABS 1 tablet by mouth at onset of migraine as needed SUMATRIPTAN SUCCINATE 46084021994 Active KENDALL Juarez Active LORATADINE 10 MG TABS Take one by mouth daily LORATADINE 60857155207 Active Baltazar Childers MD Active OMEPRAZOLE 20 MG CPDR Take one by mouth daily OMEPRAZOLE 88056026781 Active [place] Fitzgeralder Active HYDROXYZINE HCL 25 MG TABS Take one by mouth daily HYDROXYZINE HCL 00902181437 Active Baltazar Childers MD Active GLIPIZIDE 10 MG TABS 1 tablet by mouth twice daily GLIPIZIDE 27258943812 Active Baltazar Childers MD Active ALPRAZOLAM 1 MG TABS 1 tablet by mouth daily at bedtime for restles s leg ALPRAZOLAM 10023627858 Active Baltazar Childers MD Active METFORMIN HCL 1000 MG TABS Take one by mouth twice daily METFORMIN HCL 80466424088 Active Baltazar Childers MD Active TIZANIDINE HCL 4 MG TABS 1 daily as needed for muscle spasm 2011 TIZANIDINE HCL 4 MG TABS 961871 TIZANIDINE HCL Inactiv e PHENTERMINE HCL 37.5 MG TABS Take one by mouth daily 2 PHENTERMINE HCL 37.5 MG TABS 886011 PHENTERMINE HCL Inactive CRESTOR 10 MG TABS 1 by mouth every day C RESTOR 10 MG TABS 040567 ROSUVASTATIN CALCIUM Inactive LIPITOR 20 MG TABS Take one by mouth daily in evening LIPITOR 20 MG TABS 412991 ATORVASTATIN CALCIUM Inactive DEPO-TESTOSTERONE 200 MG/ML OIL as directed 8 DEPO-TESTOSTERONE 200 MG/ML OIL 070996 TESTOSTERONE CYPIONATE Inactive NAPROXEN 500 MG TABS 1 tablet by mouth twice daily 201 07/27/22 NAPROXEN 500 MG TABS 639842 NAPROXEN Inactive GABAPENTIN 300 MG CAPS 1 po qd x 2 days, then 1 po BID x 2 d ays, then 1 po TID GABAPENTIN 300 MG CAPS 351963 GABAPENTIN Inact amie ONETOUCH ULTRA BLUE STRP Test twice a day ONETOUCH ULTRA BLUE STRP GLUCOSE BLOOD Inactive NAPROXEN SODIUM 220 MG ORAL TABS 1 three times a day as needed 2 NAPROXEN SODIUM 220 MG ORAL TABS 618791 NAPROXEN SODIUM Inactive TOUJEO SOLOSTAR 300 UNIT/ML [...] Fluarix, Agriflu(>= 18 yo)) Fluzone (>3 yrs.) [[id number]] Influenza, seasonal, inject able Seasonal influenza vaccine, injectable, containing preservative, for > 3 years old (Afluria, FluLaval, Fluzone, Fluvirin, Fluarix, Agriflu(>= 18 yo)) Fluzone (>3 yrs.) [[id number]] Influenza, seasonal, inject able Vital Signs Date [...] C - Chemistry sodium, serum 139 mmol/L 940-600 0062/07/07 potassium, serum 4.5 mmol/L 3.5-5.2 chloride, serum 99 mmol/L 98-107 carbon dioxide, venous blood 33.8 mmol/L 21.0-32 .0 blood glucose 209 mg/dL 65-110 calcium, serum 9.8 mg/dL 8.5-10.1 urea nitrogen, blood 14 mg/dL 7-18 creatinine, serum 1.89 mg/dL 0.55-1.30 hemoglobin A1C, blood, as % of total hemoglobin 8.3 % 4.3-6.0 Lab Report: CBC, HGBA1C, Renal Panel - C hemistry hemoglobin A1C, blood, as % of total hemoglobin 7.9 % 4.3-6.0 sodium, serum 139 mmol/L 921-715 1037/02/04 potassium, serum 5.4 mmol/L 3.5-5.2 chloride, serum [...] Panel - Chemistry sodium, serum 138 mmol/L 030-428 9112/11/23 carbon dioxide, venous blood 32.4 mmol/L 21.0-32 .0 potassium, serum 5.7 mmol/L 3.5-5.2 chloride, serum 98 mmol/L 98-107 blood glucose 136 mg/dL 65-110 urea nitrogen, blood 18 mg/dL 7-18 creatinine, serum 1.71 mg/dL 0.55-1.30 alanine aminotransferase (SGPT), serum 71 U/L 12-78 aspartate aminotransferase (SGOT), serum 34 U/L 15-37 calcium, serum 9.4 mg/dL 8.5-10.1 bilirubin, serum, total 0.40 mg/dL 0.00-1.00 cholesterol, serum 405 mg/dL 042-676 5131/11/23 triglyceride, serum, fasting 709 mg/dL 30-200 HDL [...] mg/dL Encounters Code Encounter Date Provider Facility CPT-55973 Level 3 Est. Patient 16:40:40 CDT Baltazar Childers MD [facility] CPT-81548 Level 4 Est. Patient 10:41:24 CDT Baltazar Childers MD [facility] CPT-01923 Level 4 Est. Patient 16:01:48 CDT Baltazar Childers MD [facility] CPT-32449 Level 4 Est. Patient 16:54:07 DIRECTORY CLERK Baltazar Childers MD [facility] CPT-53794 Level 4 Est. Patient 15:42:12 CDT Baltazar Childers MD [facility] CPT-25227 Level 4 Est. Patient 11:29:55 CDT Baltazar Childers MD [facility] CPT-26671 Level 4 Est. Patient 14:15:19 CDT Baltazar Childers MD [facility] CPT-58950 Level 4 Est. Patient 12:20:13 CDT Baltazar Childers MD [facility] CPT-61541 Level 4 Est. Patient 14:52:45 DIRECTORY CLERK Baltazar Childers MD [facility] CPT-68073 Level 4 Est. Patient 14:18:34 DIRECTORY CLERK Baltazar Childers MD [facility] CPT-32856 Level 4 Est. Patient 15:18:29 CDT Baltazar Childers MD [facility] CPT-43292 Level 3 Est. Patient 12:45:34 CDT Baltazar Childers MD [facility] CPT-25750 Level 3 Est. Patient 10:10:11 CDT Baltazar Childers MD [facility] CPT-39960 Level 3 Est. Patient 14:07:50 CDT Baltazar Childers MD [facility] CPT-74818 Level 4 Est. Patient 12:26:10 DIRECTORY CLERK Baltazar Childers MD [facility] CPT-23889 Level 4 Est. Patient 14:45:38 CDT Baltazar Childers MD [facility] CPT-75205 Level 4 New Patient 12:30:48 CDT Baltazar hinton MD [facility] Procedures Code Procedure Name Date Entry Date Standard Desc ription CPT-32861 Venipuncture Draw Fee 14:33:30 CDT CPT-66060 Renal Panel - LAB USE ONLY 14:33:30 CDT 201 10/31/07 CPT-66136 CBC - LAB USE ONLY 14:33:29 CDT CPT-64739 Venipuncture Draw Fee 14:50:21 DIRECTORY CLERK CPT-23960 Immunization Single Admin 17:35:35 CDT 2014 CPT-59990 Fluzone Quadrivalent preservative free ( >=3yrs.) 17:35:35 CDT CPT-36257 Venipuncture Draw Fee 12:10:27 DIRECTORY CLERK CPT-56932 Fluzone Quadrivalent Intramuscular Suspe nsion 0.5 ML 10:49:13 CDT CPT-91235 First Vx Component - Ix admi n via ID IM or jet inj without physician counseling 15:17:19 DIRECTORY CLERK CPT-72250 Pneumovax 23 15:17:19 DIRECTORY CLERK CPT-82396 Pneumovax 14:52:45 DIRECTORY CLERK CPT-98460 Venipuncture Draw Fee 14:06:30 DIRECTORY CLERK CPT-000 Give Appropriate Flu Vaccine 14:18:34 DIRECTORY CLERK 2 CPT-91501 Administration single or combination vac cine inc oral 14:46:00 DIRECTORY CLERK CPT-56432 Influenza split virus > age 3 14:46:00 DIRECTORY CLERK CPT-OV Office Visit 19:13:16 CDT CPT-40755 Zostavax 18:41:56 CDT CPT-43612 Administration single or combination vac cine inc oral 12:56:39 CDT CPT-98196 Zoster Vaccine (Zostavax) 12:56:39 CDT 2012 CPT-99119 Venipuncture Draw Fee 10:58:57 CDT CPT-58594 Sono pelvis non OB uterus ovaries cervix 17:45:04 CDT CPT-42048 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
--- OUTSIDE RECORDS SUMMARY | 2019-10-27 12:17 | XMS REPORT | Clinical Summary ---
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 Benign neoplasm of colon PERIPHERAL NEUROPATHY 356.9 [...] ronary atherosclerosis of unspecified type of vessel, [place] or graft OTH NONSPC ABN FINDNG RAD&OTH [...] 1 tab daily for HTN AMLODIPINE BESYLATE 45047055432 Active KENDALL Juarez Active SYNTHROID 0.1 MG TAB 1 tablet by mouth daily LE VOTHYROXINE SODIUM 24704588267 Active Shonna Parker APRN Active GLIPIZIDE 10 MG TAB take 2 tablets twice daily GLIPIZIDE 48103578044 Active Baltazar Childers MD Active SUCRALFATE 1 GM TABS 1 four times a day to coat the stomach 2015 SUCRALFATE 36823397074 No Longer Active Baltazar Childers MD Active PEN NEEDLES 31G X 6 MM MISC use 1 daily INSULIN PEN NEEDLE 03448570865 Active Gato Rae MD Active TOUJEO SOLOSTAR 300 UNIT/ML SC SOPN 10 units SC daily INSULIN GLARGINE 53689822413 No Longer Active Martitatung ARGUETA Active LANTUS SOLOSTAR 100 UNIT/ML SC SOPN 10 units SC daily INSULIN GLARGINE 17939357723 Active KENDALL Juarez Active NAPROXEN SODIUM 220 MG ORAL TABS 1 three times a day as needed 2 NAPROXEN SODIUM 19254814855 No Longer Active Baltazar Childers MD Active ATORVASTATIN CALCIUM 20 MG ORAL TABS Take 1 tab daily ATORVASTATIN CALCIUM 60909435724 Active KENDALL Juarez Active FUROSEMIDE 40 MG TABS Take one by mouth daily FUROSEMIDE 48200081659 Active Baltazar Childers MD Active LISINOPRIL 20 MG TABS Take one by mouth daily at bedtime LISINOPRIL 70852579289 No Longer Active Baltazar Childers MD Active ONETOUCH ULTRA BLUE STRP Test twice a day GLUCO SE BLOOD 25334276640 No Longer Active Baltazar Childers MD Active TRUEPLUS LANCETS 33G MISC Test twice a day LANCET S 73181257333 Active KENDALL Juarez Active TRUEDRAW LANCING DEVICE MISC Test twice a day L ANCET DEVICES 61748265314 Active Baltazar Childers MD Active TRUETRACK TEST STRP Test twice a day GLUCOSE BLOO D 22756487231 Active KENDALL Juarez Active TRUETRACK BLOOD GLUCOSE W/DEVICE KIT Test twice a day BLOOD GLUCOSE MONITORING SUPPL 94258797507 Active Baltazar Childers MD Activ e HYDROCODONE-ACETAMINOPHEN 7.5-325 MG TABS Take 1 tab every 6-8 hour s PRN HYDROCODONE-ACETAMINOPHEN 77981220473 Active Baltazar Childers MD Active NORTRIPTYLINE HCL 50 MG CAPS 1 every night for neuropathy 4 NORTRIPTYLINE HCL 22925731969 Active Baltazar Childers MD Acti ve GABAPENTIN 300 MG CAPS 1 three times a day GABAPE NTIN 77781208782 Active Baltazar Childers MD Active GABAPENTIN 300 MG CAPS 1 po qd x 2 days, then 1 po BID x 2 d ays, then 1 po TID GABAPENTIN 60626958185 No Longer Active Baltazar silverman MD Active TRAMADOL HCL 50 MG TABS 1 twice a day as needed for pain TRAMADOL HCL 91215376416 Active Baltazar Childers MD Active NAPROXEN 500 MG TABS 1 tablet by mouth twice daily NAPROXEN 89417671561 No Longer Active Baltazar Childers MD Active PROAIR HFA 108 (90 BASE) MCG/ACT AERS 2 puffs four times a d ay as needed ALBUTEROL SULFATE 68732336336 Active Baltazar Childers MD Active DEPO-TESTOSTERONE 200 MG/ML OIL as directed RUFINO TOSTERONE CYPIONATE 86167418752 No Longer Active Baltazar Childers MD Active LIPITOR 20 MG TABS Take one by mouth daily in evening ATORVASTATIN CALCIUM 38656705640 No Longer Active Baltazar Childers MD Activ e CRESTOR 10 MG TABS 1 by mouth every day R OSUVASTATIN CALCIUM 52779938099 No Longer Active Baltazar Childers MD Activ e PHENTERMINE HCL 37.5 MG TABS Take one by mouth daily 2 PHENTERMINE HCL 69230207531 No Longer Active Baltazar Childers MD Activ e ROBAXIN-750 750 MG TABS Take one by mouth daily ME THOCARBAMOL 04005491713 Active Baltazar Childers MD Active TIZANIDINE HCL 4 MG TABS 1 daily as needed for muscle spasm 2011 TIZANIDINE HCL 29796966386 No Longer Active Dawna Salazar RN Active [id number]-[id number] 50-325-40 MG TABS 1 four time s a day as needed for heacache [id number] 86708435232 Active KENDALL Juarez Active SUMATRIPTAN SUCCINATE 100 MG TABS 1 tablet by mouth at onset of migraine as needed SUMATRIPTAN SUCCINATE 67414087633 Active KENDALL Juarez Active LORATADINE 10 MG TABS Take one by mouth daily LORATADINE 10080478746 Active Beth KENDALL Carr Active OMEPRAZOLE 20 MG CPDR Take one by mouth daily OMEPRAZOLE 90079323937 Active Baltazar Childers MD Active HYDROXYZINE HCL 25 MG TABS Take one by mouth daily HYDROXYZINE HCL 24628993392 Active Baltazar Childers MD Active ALPRAZOLAM 1 MG TABS 1 tablet by mouth daily at bedtime for restles s leg ALPRAZOLAM 80617678878 Active Baltazar Childers MD Active METFORMIN HCL 1000 MG TABS Take one by mouth twice daily METFORMIN HCL 78561129762 Active Baltazar Childers MD Active TIZANIDINE HCL 4 MG TABS 1 daily as needed for muscle spasm 2011 TIZANIDINE HCL 4 MG TABS 116341 TIZANIDINE HCL Inactiv e PHENTERMINE HCL 37.5 MG TABS Take one by mouth daily 2 PHENTERMINE HCL 37.5 MG TABS 571197 PHENTERMINE HCL Inactive CRESTOR 10 MG TABS 1 by mouth every day C RESTOR 10 MG TABS 457264 ROSUVASTATIN CALCIUM Inactive LIPITOR 20 MG TABS Take one by mouth daily in evening LIPITOR 20 MG TABS 111994 ATORVASTATIN CALCIUM Inactive DEPO-TESTOSTERONE 200 MG/ML OIL as directed 8 DEPO-TESTOSTERONE 200 MG/ML OIL 780963 TESTOSTERONE CYPIONATE Inactive NAPROXEN 500 MG TABS 1 tablet by mouth twice daily 201 07/27/22 NAPROXEN 500 MG TABS 195859 NAPROXEN Inactive GABAPENTIN 300 MG CAPS 1 po qd x 2 days, then 1 po BID x 2 d ays, then 1 po TID GABAPENTIN 300 MG CAPS 609358 GABAPENTIN Inact amie ONETOUCH ULTRA BLUE STRP Test twice a day ONETOUCH ULTRA BLUE STRP GLUCOSE BLOOD Inactive NAPROXEN SODIUM 220 MG ORAL TABS 1 three times a day as needed 2 NAPROXEN SODIUM 220 MG ORAL TABS 810580 NAPROXEN SODIUM Inactive TOUJEO SOLOSTAR 300 UNIT/ML SC SOPN 10 units SC daily TOUJEO SOLOSTAR 300 UNIT/ML SC SOPN INSULIN GLARGINE Inac tive SUCRALFATE 1 GM TABS 1 four times a day to coat the stomach 2015 SUCRALFATE 1 GM TABS 160271 SUCRALFATE Inactive Immunizations Vaccine Administration Date Value Standard Floyd cription pneumococcal immunization administered Pneumovax 23 [CVX33] pneumococcal polysaccharide vaccine, 23 valent Seasonal influenza vaccine, injectable, containing preservative, for > 3 years old (Afluria, FluLaval, Fluzone, Fluvirin, Fluarix, Agriflu(>= 18 yo)) Fluzone (>3 yrs.) [[id number]] Influenza, seasonal, inject able Seasonal influenza vaccine, injectable, containing preservative, for > 3 years old (Afluria, FluLaval, Fluzone, Fluvirin, Fluarix, Agriflu(>= 18 yo)) Fluzone (>3 yrs.) [[id number]] Influenza, seasonal, inject able Vital Signs Date [...] C - Chemistry sodium, serum 143 mmol/L 189-686 3739/06/19 potassium, serum 5.9 mmol/L 3.5-5.2 chloride, serum 105 mmol/L 98-107 carbon dioxide, venous blood 30.2 mmol/L 21.0-32 .0 blood glucose 189 mg/dL 65-110 calcium, serum 9.7 mg/dL 8.5-10.1 urea nitrogen, blood 37 mg/dL 7-18 creatinine, serum 2.11 mg/dL 0.55-1.30 hemoglobin A1C, blood, as % of total hemoglobin 8.2 % 4.3-6.0 Lab Report: CBC, Renal Panel - Chemistry sodium, serum 142 mmol/L 406-691 3871/08/11 potassium, serum 4.8 mmol/L 3.5-5.2 chloride, serum [...] Panel - Chemistry sodium, serum 143 mmol/L 068-056 1819/12/19 carbon dioxide, venous blood 32.5 mmol/L 21.0-32 .0 potassium, serum 4.9 mmol/L 3.5-5.2 chloride, serum 101 mmol/L 98-107 blood glucose 129 mg/dL 65-110 urea nitrogen, blood 18 mg/dL 7-18 creatinine, serum 1.79 mg/dL 0.55-1.30 alanine aminotransferase (SGPT), serum 34 U/L 12-78 aspartate aminotransferase (SGOT), serum 26 U/L 15-37 calcium, serum 8.9 mg/dL 8.5-10.1 bilirubin, serum, total 0.30 mg/dL 0.00-1.00 cholesterol, serum 214 mg/dL 216-185 3383/12/19 triglyceride, serum, fasting 351 mg/dL 30-200 HDL [...] 4.3-6.0 Encounters Code Encounter Date Provider Facility CPT-00269 Level 4 Est. Patient 14:22:31 CDT Baltazar Childers MD [facility] CPT-88186 Level 4 Est. Patient 15:44:38 [facility] Level 4 Est. Patient 11:34:17 CDT Baltazar Childers MD [facility] CPT-18185 Level 3 Est. Patient 16:40:40 CDT Baltazar Childers MD [facility] CPT-95022 Level 4 Est. Patient 10:41:24 CDT Baltazar Childers MD [facility] CPT-82127 Level 4 Est. Patient 16:01:48 CDT Baltazar Childers MD [facility] CPT-94608 Level 4 Est. Patient 16:54:07 SOLUTIONS ENGINEER Baltazar Childers MD [facility] CPT-57545 Level 4 Est. Patient 15:42:12 CDT Baltazar Childers MD [facility] CPT-71289 Level 4 Est. Patient 11:29:55 CDT Baltazar Childers MD [facility] CPT-63801 Level 4 Est. Patient 14:15:19 CDT Baltazar Childers MD [facility] CPT-29553 Level 4 Est. Patient 12:20:13 CDT Baltazar Childers MD [facility] CPT-99563 Level 4 Est. Patient 14:52:45 SOLUTIONS ENGINEER Baltazar Childers MD [facility] CPT-19420 Level 4 Est. Patient 14:18:34 SOLUTIONS ENGINEER Baltazar Childers MD [facility] CPT-50290 Level 4 Est. Patient 15:18:29 CDT Baltazar Childers MD [facility] CPT-68054 Level 3 Est. Patient 12:45:34 CDT Baltazar Childers MD [facility] CPT-30055 Level 3 Est. Patient 10:10:11 CDT Baltazar Childers MD [facility] CPT-01749 Level 3 Est. Patient 14:07:50 CDT Baltazar Childers MD [facility] CPT-56382 Level 4 Est. Patient 12:26:10 SOLUTIONS ENGINEER Baltazar Childers MD [facility] CPT-52422 Level 4 Est. Patient 14:45:38 CDT Baltazar Childers MD [facility] CPT-87023 Level 4 New Patient 12:30:48 CDT Baltazar hinton MD [facility] Procedures Code Procedure Name Date Entry Date Standard Desc ription CPT-37780 Venipuncture Draw Fee 12:04:12 CDT CPT-63873 Lipid - LAB USE ONLY 17:39:15 SOLUTIONS ENGINEER 9 CPT-32712 HGBA1C - LAB USE ONLY 17:39:15 SOLUTIONS ENGINEER CPT-35538 CMP - LAB USE ONLY 17:39:14 SOLUTIONS ENGINEER CPT-40887 Venipuncture Draw Fee 17:39:14 SOLUTIONS ENGINEER CPT-16653 First Vx - Ix admin via ID I M or jet injects without counseling by physician 16:55:17 SOLUTIONS ENGINEER CPT-46138 Fluzone Quadrivalent Intramuscular Suspe nsion 0.5 ML 16:55:17 SOLUTIONS ENGINEER CPT-08375 Renal Panel - LAB USE ONLY 17:39:20 CDT 201 10/31/07 CPT-97510 CBC - LAB USE ONLY 17:39:20 CDT CPT-96541 Venipuncture Draw Fee 17:39:20 CDT CPT-79063 Venipuncture Draw Fee 14:33:30 CDT CPT-54470 Renal Panel - LAB USE ONLY 14:33:30 CDT 201 10/31/07 CPT-60882 CBC - LAB USE ONLY 14:33:29 CDT CPT-41024 Venipuncture Draw Fee 14:50:21 SOLUTIONS ENGINEER CPT-69099 Immunization Single Admin 17:35:35 CDT 2014 CPT-48177 Fluzone Quadrivalent preservative free ( >=3yrs.) 17:35:35 CDT CPT-45574 Venipuncture Draw Fee 12:10:27 SOLUTIONS ENGINEER CPT-97991 Fluzone Quadrivalent Intramuscular Suspe nsion 0.5 ML 10:49:13 CDT CPT-22097 First Vx Component - Ix admi n via ID IM or jet inj without physician counseling 15:17:19 SOLUTIONS ENGINEER CPT-82797 Pneumovax 23 15:17:19 SOLUTIONS ENGINEER CPT-74885 Pneumovax 14:52:45 SOLUTIONS ENGINEER CPT-15507 Venipuncture Draw Fee 14:06:30 SOLUTIONS ENGINEER CPT-000 Give Appropriate Flu Vaccine 14:18:34 SOLUTIONS ENGINEER 2 CPT-18361 Administration single or combination vac cine inc oral 14:46:00 SOLUTIONS ENGINEER CPT-68683 Influenza split virus > age 3 14:46:00 SOLUTIONS ENGINEER CPT-OV Office Visit 19:13:16 CDT CPT-33428 Zostavax 18:41:56 CDT CPT-94672 Administration single or combination vac cine inc oral 12:56:39 CDT CPT-39354 Zoster Vaccine (Zostavax) 12:56:39 CDT 2012 CPT-07764 Venipuncture Draw Fee 10:58:57 CDT CPT-39347 Sono pelvis non OB uterus ovaries cervix 17:45:04 CDT CPT-01032 Sono retroperitoneal complete kidneys an d bladder 17:14:36 CDT CPT-OV Office Visit 14:59:38 SOLUTIONS ENGINEER CPT-J1070 Depo Testosterone 100 mg 14:50:13 CDT 03/05 CPT-80242 Abx/Therapy Injection 14:50:13 CDT CPT-98301 Administration single or combination vac cine inc oral 14:34:43 CDT CPT-27978 Influenza split virus > age 3 14:34:43 CDT CPT-J1070 Depo Testosterone 100 mg 17:37:13 CDT 01/11 CPT-40531 Abx/Therapy Injection 17:37:13 CDT CPT-99200 Venipuncture Draw Fee 16:30:13 CDT CPT-42809 Venipuncture Draw Fee 16:29:43 CDT CPT-J1070 Depo Testosterone 100 mg 14:45:38 CDT 01/11
--- OUTSIDE RECORDS SUMMARY | 2019-10-27 12:17 | XMS REPORT | Clinical Summary ---
Author Author Admin, Elba Lance Konjekt Address Unknown Phone Unavailable Allergies, Adverse Reactions, [...] lumbosacral in tervertebral disc ANXIETY 300.00 Active Blatazar Childers MD Anxiety state, unspecified RESTLESS LEG 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 SAW FILER Benign neoplasm of colon PERIPHERAL NEUROPATHY 356.9 [...] ronary atherosclerosis of unspecified type of vessel, [place] or graft OTH NONSPC ABN FINDNG [...] three times a day 201 12/03/26 GABAPENTIN 50143066831 No Longer Active Baltazar Childers MD Activ e LISINOPRIL 20 MG ORAL TABLET 1 tablet by mouth daily at night 2016 LISINOPRIL 67536427375 Active Baltazar Childers MD Active ZITHROMAX Z-ISAIAS 250 MG ORAL TABLET Take two tablets to day and then 1 tablet daily for 4 days AZITHROMYCIN 88342580685 No Longer A ctive Baltazar Childers MD Active LANTUS SOLOSTAR 100 UNIT/ML SUBCUTANEOUS SOLUTION PEN- INJECTOR 30 units SC daily INSULIN GLARGINE 88490207595 Active Baltazar Childers MD Active AMLODIPINE BESYLATE 5 MG ORAL TABLET 1 tab daily for HTN AMLODIPINE BESYLATE 78027054592 Active Baltazar Childers MD Active SYNTHROID 100 MCG ORAL TABLET 1 tablet by mouth daily LEVOTHYROXINE SODIUM 85868696896 Active Baltazar Childers MD Active GLIPIZIDE 10 MG ORAL TABLET take 2 tablets twice daily GLIPIZIDE 09760068140 Active Baltazar Childers MD Active SUCRALFATE 1 GM ORAL TABLET 1 four times a day to coat the stoma ch SUCRALFATE 65186907580 No Longer Active Baltazar Childers MD Active PEN NEEDLES 31G X 6 MM use 1 daily INSULIN PEN NE EDLE 24816988434 Active KENDALL Juarez Active CELINA SOLOSTNAKITA 300 UNIT/ML SUBCUTANEOUS SOLUTION PEN- INJECTOR 10 units SC daily INSULIN GLARGINE 90752361802 No Longer Active Rola Godinez RMA Active NAPROXEN SODIUM 220 MG ORAL TABLET 1 three times a day as needed NAPROXEN SODIUM 12085871499 No Longer Active Baltazar Childers MD Active ATORVASTATIN CALCIUM 20 MG ORAL TABLET Take 1 tab daily ATORVASTATIN CALCIUM 97484343709 Active Baltazar Childers MD A ctive FUROSEMIDE 40 MG ORAL TABLET Take one by mouth daily FUROSEMIDE 36555182271 Active Baltazar Childers MD Active LISINOPRIL 20 MG ORAL TABLET Take one by mouth daily at bedtime LISINOPRIL 79805872229 No Longer Active Baltazar Childers MD Active ONETOUCH ULTRA BLUE IN VITRO STRIP Test twice a day 07/11/11 GLUCOSE BLOOD 95372017622 No Longer Active Baltazar Childers MD Acti ve TRUEPLUS LANCETS 33G Test twice a day LANCETS 7936041 3020 Active KENDALL Juarez Active TRUEDRAW LANCING DEVICE Test twice a day LANCET DEVICES 45176520863 Active Baltazar Childers MD Active TRUETRACK TEST IN VITRO STRIP Test twice a day GLUCOSE BLOOD 03754582143 Active KENDALL Juarez Active TRUETRACK BLOOD GLUCOSE w/Device KIT Test twice a day BLOOD GLUCOSE MONITORING SUPPL 21197976894 Active Baltazar Childers MD Activ e HYDROCODONE-ACETAMINOPHEN 7.5-325 MG ORAL TABLET Take 1 tab every 6-8 hours PRN HYDROCODONE-ACETAMINOPHEN 75848094492 Active Baltazar Nickerson MD Active NORTRIPTYLINE HCL 50 MG ORAL CAPSULE 1 every night for neuropathy 2 NORTRIPTYLINE HCL 48584554567 Active Baltazar Childers MD Acti ve GABAPENTIN 300 MG ORAL CAPSULE 1 po qd x 2 days, then 1 po BID x 2 days, then 1 po TID GABAPENTIN 91850767927 No Longer Active Baltazar Childers MD Active TRAMADOL HCL 50 MG ORAL TABLET 1 twice a day as needed for pain 201 07/27/28 TRAMADOL HCL 61479185552 Active Baltazar Childers MD Active NAPROXEN 500 MG ORAL TABLET 1 tablet by mouth twice daily NAPROXEN 70460334320 No Longer Active Baltazar Childers MD Active PROAIR HFA 108 (90 Base) MCG/ACT INHALATION AEROSOL SO LUTION 2 puffs four times a day as needed ALBUTEROL SULFATE 20829702546 Active KENDALL Bowie Active DEPO-TESTOSTERONE 200 MG/ML INTRAMUSCULAR SOLUTION as directed TESTOSTERONE CYPIONATE 12162647251 No Longer Active Baltazar Childers MD Active LIPITOR 20 MG ORAL TABLET Take one by mouth daily in evening ATORVASTATIN CALCIUM 95625680830 No Longer Active Baltazar Childers MD Active CRESTOR 10 MG ORAL TABLET 1 by mouth every day ROSUVASTATIN CALCIUM 58691046551 No Longer Active Baltazar Childers MD Active PHENTERMINE HCL 37.5 MG ORAL TABLET Take one by mouth daily PHENTERMINE HCL 50422787572 No Longer Active Baltazar Childers MD Ac tive ROBAXIN-750 750 MG ORAL TABLET Take one by mouth daily METHOCARBAMOL 03092700141 Active Baltazar Childers MD Active TIZANIDINE HCL 4 MG ORAL TABLET 1 daily as needed for muscle spa sm TIZANIDINE HCL 57300056918 No Longer Active Dawna Salazar RN Active [id number] 50-325-40 MG ORAL TABLET 1 fo ur times a day as needed for heacache [id number] 57475684553 Active Baltazar Childers MD Active SUMATRIPTAN SUCCINATE 100 MG ORAL TABLET 1 tablet by m outh at onset of migraine as needed SUMATRIPTAN SUCCINATE 54810288224 Active KENDALL Restrepo Active LORATADINE 10 MG ORAL TABLET Take one by mouth daily LORATADINE 91189084428 Active Baltazar Childers MD Active OMEPRAZOLE 20 MG ORAL CAPSULE DELAYED RELEASE Take one by mouth jostin ly OMEPRAZOLE 96569878899 Active Baltazar Childers MD Active HYDROXYZINE HCL 25 MG ORAL TABLET Take one by mouth daily HYDROXYZINE HCL 76014287530 Active Baltazar Childers MD Active ALPRAZOLAM 1 MG ORAL TABLET 1 [facility] 00578631733 Active Baltazar Childers MD Active METFORMIN HCL 1000 MG ORAL TABLET Take one by mouth twice daily METFORMIN HCL 79411306546 Active Baltazar Childers MD Active TIZANIDINE HCL 4 MG ORAL TABLET 1 daily as needed for muscle spa sm TIZANIDINE HCL 4 MG ORAL TABLET 202723 TIZANIDINE HCL Inactive PHENTERMINE HCL 37.5 MG ORAL TABLET Take one by mouth daily PHENTERMINE HCL 37.5 MG ORAL TABLET 159013 PHENTERMINE HCL Inac tive CRESTOR 10 MG ORAL TABLET 1 by mouth every day CRESTOR 10 MG ORAL TABLET 374111 ROSUVASTATIN CALCIUM Inactive LIPITOR 20 MG ORAL TABLET Take one by mouth daily in evening LIPITOR 20 MG ORAL TABLET 891107 ATORVASTATIN CALCIUM Inactive DEPO-TESTOSTERONE 200 MG/ML INTRAMUSCULAR SOLUTION as directed DEPO-TESTOSTERONE 200 MG/ML INTRAMUSCULAR SOLUTION 686793 RUFINO TOSTERONE CYPIONATE Inactive NAPROXEN 500 MG ORAL TABLET 1 tablet by mouth twice daily NAPROXEN 500 MG ORAL TABLET 036695 NAPROXEN Inactive GABAPENTIN 300 MG ORAL CAPSULE 1 po qd x 2 days, then 1 po BID x 2 days, then 1 po TID GABAPENTIN 300 MG ORAL CAPSULE 990152 GABAP ENTIN Inactive ONETOUCH ULTRA BLUE IN VITRO STRIP Test twice a day 07/11/11 ONETOUCH ULTRA BLUE IN VITRO STRIP GLUCOSE BLOOD Inact amie NAPROXEN SODIUM 220 MG ORAL TABLET 1 three times a day as needed NAPROXEN SODIUM 220 MG ORAL TABLET 607081 NAPROXEN SODI UM Inactive TOUJEO SOLOSTAR 300 UNIT/ML SUBCUTANEOUS SOLUTION PEN- INJECTOR 10 units SC daily TOUJEO SOLOSTAR 300 UNIT/ML SUBCUTANEOUS SOLUTION PEN-INJECTOR INSULIN GLARGINE Inactive SUCRALFATE 1 GM ORAL TABLET 1 four times a day to coat the stoma ch SUCRALFATE 1 GM ORAL TABLET 088991 SUCRALFATE Inac tive GABAPENTIN 300 MG ORAL CAPSULE 1 three times a day 201 12/03/26 GABAPENTIN 300 MG ORAL CAPSULE 370979 GABAPENTIN Inactive ZITHROMAX Z-ISAIAS 250 MG ORAL TABLET Take two tablets to day and then 1 tablet daily for 4 days ZITHROMAX Z-ISAIAS 250 MG ORAL TAB LET 178611 AZITHROMYCIN Inactive Immunizations Vaccine Administration Date Value Standard Floyd cription pneumococcal immunization administered Pneumovax 23 [CVX33] pneumococcal polysaccharide vaccine, 23 valent Seasonal influenza vaccine, injectable, containing preservative, for > 3 years old (Afluria, FluLaval, Fluzone, Fluvirin, Fluarix, Agriflu(>= 18 yo)) Fluzone (>3 yrs.) [[id number]] Influenza, seasonal, inject able Seasonal influenza vaccine, injectable, containing preservative, for > 3 years old (Afluria, FluLaval, Fluzone, Fluvirin, Fluarix, Agriflu(>= 18 yo)) Fluzone (>3 yrs.) [IQT926] Influenza, seasonal, inject able Vital Signs Date [...] - Chem istry sodium, serum 139 mmol/L 563-871 7897/10/03 potassium, serum 4.7 mmol/L 3.5-5.2 chloride, serum 98 mmol/L 98-107 carbon dioxide, venous blood 28.7 mmol/L 21.0-32 .0 blood glucose 218 mg/dL 65-110 calcium, serum 9.8 mg/dL 8.5-10.1 urea nitrogen, blood 19 mg/dL 7-18 creatinine, serum 1.68 mg/dL 0.60-1.30 Lab Report: Basic Metabolic Panel, HGBA1 C - Chemistry sodium, serum 143 mmol/L 207-493 1767/06/19 potassium, serum 5.9 mmol/L 3.5-5.2 chloride, serum 105 mmol/L 98-107 carbon dioxide, venous blood 30.2 mmol/L 21.0-32 .0 blood glucose 189 mg/dL 65-110 calcium, serum 9.7 mg/dL 8.5-10.1 urea nitrogen, blood 37 mg/dL 7-18 creatinine, serum 2.11 mg/dL 0.55-1.30 hemoglobin A1C, blood, as % of total hemoglobin 8.2 % 4.3-6.0 Lab Report: CBC, Renal Panel - Chemistry sodium, serum 142 mmol/L 402-576 1763/08/11 potassium, serum 4.8 mmol/L 3.5-5.2 chloride, serum [...] (L) - Chemistry cholesterol, serum 209 mg/dL 676-832 4109/12/27 triglyceride, serum, fasting 329 mg/dL 30-200 HDL cholesterol, serum 56 mg/dL 32-60 LDL cholesterol, serum 87 mg/dL 0-130 TSH 3.60 m[iU]/mL 0.36-3.74 Encounters Code Encounter Date Provider Facility CPT-60704 Level 4 Est. Patient 17:05:37 CDT Baltazar Childers MD [facility] CPT-72132 Level 4 Est. Patient 16:21:19 OFFICE NURSE PRACTITIONER Baltazar Childers MD [facility] CPT-42032 Level 4 Est. Patient 12:25:11 CDT Baltazar Childers MD [facility] CPT-70566 Level 4 Est. Patient 14:22:31 CDT Baltazar Childers MD -17216 Level 4 Est. Patient 15:44:38 CDT Shonna Parker APRN -[id number] Level 4 Est. Patient 11:34:17 CDT Baltazar Childers MD -33391 Level 3 Est. Patient 16:40:40 CDT Baltazar Childers MD -77859 Level 4 Est. Patient 10:41:24 CDT Baltazar Childers MD -36450 Level 4 Est. Patient 16:01:48 CDT Baltazar Childers MD -56261 Level 4 Est. Patient 16:54:07 OFFICE NURSE PRACTITIONER Baltazar Childers MD -75080 Level 4 Est. Patient 15:42:12 CDT Baltazar Childers MD [facility] CPT-82779 Level 4 Est. Patient 11:29:55 CDT Baltazar Childers MD [facility] CPT-64080 Level 4 Est. Patient 14:15:19 CDT Baltazar Childers MD [facility]-56993 Level 4 Est. Patient 12:20:13 CDT Baltazar Childers MD [facility]-93818 Level 4 Est. Patient 14:52:45 OFFICE NURSE PRACTITIONER Baltazar Childers MD [facility] CPT-86139 Level 4 Est. Patient 14:18:34 OFFICE NURSE PRACTITIONER Baltazar Childers MD [facility]-38118 Level 4 Est. Patient 15:18:29 CDT Baltazar Childers MD [facility]-48467 Level 3 Est. Patient 12:45:34 CDT Baltazar Childers MD [facility]-63417 Level 3 Est. Patient 10:10:11 CDT Baltazar Childers MD [facility] CPT-07735 Level 3 Est. Patient 14:07:50 CDT Baltazar Childers MD [facility] CPT-56182 Level 4 Est. Patient 12:26:10 OFFICE NURSE PRACTITIONER Baltazar Childers MD [facility] CPT-20607 Level 4 Est. Patient 14:45:38 CDT Baltazar Childers MD [facility] CPT-30494 Level 4 New Patient 12:30:48 CDT Baltazar hinton MD [facility] Procedures Code Procedure Name Date Entry Date Standard Desc ription CPT-90403 First Vx - Ix admin via ID I M or jet injects without counseling by physician 13:08:59 CDT CPT-92470 Fluzone Quadrivalent Intramuscular Suspe nsion 0.5 ML 13:08:59 CDT CPT-32161 Venipuncture Draw Fee 12:04:12 CDT CPT-34418 Lipid - LAB USE ONLY 17:39:15 OFFICE NURSE PRACTITIONER 9 CPT-85873 HGBA1C - LAB USE ONLY 17:39:15 OFFICE NURSE PRACTITIONER CPT-11893 CMP - LAB USE ONLY 17:39:14 OFFICE NURSE PRACTITIONER CPT-88473 Venipuncture Draw Fee 17:39:14 OFFICE NURSE PRACTITIONER CPT-11895 First Vx - Ix admin via ID I M or jet injects without counseling by physician 16:55:17 OFFICE NURSE PRACTITIONER CPT-24201 Fluzone Quadrivalent Intramuscular Suspe nsion 0.5 ML 16:55:17 OFFICE NURSE PRACTITIONER CPT-83234 Renal Panel - LAB USE ONLY 17:39:20 CDT 201 10/31/07 CPT-46798 CBC - LAB USE ONLY 17:39:20 CDT CPT-16312 Venipuncture Draw Fee 17:39:20 CDT CPT-58717 Venipuncture Draw Fee 14:33:30 CDT CPT-69340 Renal Panel - LAB USE ONLY 14:33:30 CDT 201 10/31/07 CPT-44534 CBC - LAB USE ONLY 14:33:29 CDT CPT-89791 Venipuncture Draw Fee 14:50:21 OFFICE NURSE PRACTITIONER CPT-77636 Immunization Single Admin 17:35:35 CDT 2014 CPT-29255 Fluzone Quadrivalent preservative free ( >=3yrs.) 17:35:35 CDT CPT-65306 Venipuncture Draw Fee 12:10:27 OFFICE NURSE PRACTITIONER CPT-26597 Fluzone Quadrivalent Intramuscular Suspe nsion 0.5 ML 10:49:13 CDT CPT-57470 First Vx Component - Ix admi n via ID IM or jet inj without physician counseling 15:17:19 OFFICE NURSE PRACTITIONER CPT-20129 Pneumovax 23 15:17:19 OFFICE NURSE PRACTITIONER CPT-34025 Pneumovax 14:52:45 OFFICE NURSE PRACTITIONER CPT-16029 Venipuncture Draw Fee 14:06:30 OFFICE NURSE PRACTITIONER CPT-000 Give Appropriate Flu Vaccine 14:18:34 OFFICE NURSE PRACTITIONER 2 CPT-93446 Administration single or combination vac cine inc oral 14:46:00 OFFICE NURSE PRACTITIONER CPT-39176 Influenza split virus > age 3 14:46:00 OFFICE NURSE PRACTITIONER CPT-OV Office Visit 19:13:16 CDT CPT-06158 Zostavax 18:41:56 CDT CPT-26221 Administration single or combination vac cine inc oral 12:56:39 CDT CPT-98530 Zoster Vaccine (Zostavax) 12:56:39 CDT 2012 CPT-86171 Venipuncture Draw Fee 10:58:57 CDT CPT-42535 Sono pelvis non OB uterus ovaries cervix 17:45:04 CDT CPT-45175 Sono retroperitoneal complete kidneys an d bladder 17:14:36 CDT CPT-OV Office Visit 14:59:38 OFFICE NURSE PRACTITIONER CPT-J1070 Depo Testosterone 100 mg 14:50:13 CDT 03/05 CPT-22174 Abx/Therapy Injection 14:50:13 CDT CPT-36066 Administration single or combination vac cine inc oral 14:34:43 CDT CPT-50223 Influenza split virus > age 3 14:34:43 CDT CPT-J1070 Depo Testosterone 100 mg 17:37:13 CDT 01/11 CPT-09612 Abx/Therapy Injection 17:37:13 CDT CPT-06307 Venipuncture Draw Fee 16:30:13 CDT CPT-58314 Venipuncture Draw Fee 16:29:43 CDT CPT-J1070 Depo Testosterone 100 mg 14:45:38 CDT 01/11
--- OUTSIDE RECORDS SUMMARY | 2019-10-27 12:17 | XMS REPORT | Clinical Summary ---
Author Author Admin, [facility] Address Unknown Phone Unavailable Allergies, Adverse Reactions, 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 WA[employer] Benign neoplasm of colon PERIPHERAL NEUROPATHY 356.9 [...] ronary atherosclerosis of unspecified type of vessel, [place] or graft OTH NONSPC ABN FINDNG RAD&OTH [...] Generic Name NDC Status Provider Patient Instruction ZITHROMAX Z-ISAIAS 250 MG TABS Take two tablets today and then 1 tablet daily for 4 days AZITHROMYCIN [id number] No Longer Active Yousif Childers MD Active LANTUS SOLOSTAR 100 UNIT/ML SC SOPN 30 units SC daily INSULIN GLARGINE 77257143048 Active Baltazar Childers MD Active AMLODIPINE BESYLATE 5 MG ORAL TABS 1 tab daily for HTN AMLODIPINE BESYLATE 95224717990 Active Baltazar Childers MD Active SYNTHROID 0.1 MG TAB 1 tablet by mouth daily LE VOTHYROXINE SODIUM 39015428214 Active Baltazar Childers MD Active GLIPIZIDE 10 MG TAB take 2 tablets twice daily GLIPIZIDE 71401679147 Active Baltazar Childers MD Active SUCRALFATE 1 GM TABS 1 four times a day to coat the stomach 2015 SUCRALFATE 53153706198 No Longer Active Baltazar Childers MD Active PEN NEEDLES 31G X 6 MM MISC use 1 daily INSULIN PEN NEEDLE 05086872313 Active KENDALL Juarez Active TOUJEO SOLOSTAR 300 UNIT/ML SC SOPN 10 units SC daily INSULIN GLARGINE 20806672224 No Longer Active Martita ARGUETA Active NAPROXEN SODIUM 220 MG ORAL TABS 1 three times a day as needed 2 NAPROXEN SODIUM 94812859170 No Longer Active aBltazar Childers MD Active ATORVASTATIN CALCIUM 20 MG ORAL TABS Take 1 tab daily ATORVASTATIN CALCIUM 84380664268 Active Baltazar Childers MD Active FUROSEMIDE 40 MG TABS Take one by mouth daily FUROSEMIDE 82688698393 Active Baltazar Childers MD Active LISINOPRIL 20 MG TABS Take one by mouth daily at bedtime LISINOPRIL 63862988607 No Longer Active Baltazar Childers MD Active ONETOUCH ULTRA BLUE STRP Test twice a day GLUCO SE BLOOD 58716442055 No Longer Active Baltazar Childers MD Active TRUEPLUS LANCETS 33G MISC Test twice a day LANCET S 55517317832 Active KENDALL Juarez Active TRUEDRAW LANCING DEVICE MISC Test twice a day L ANCET DEVICES 39945708190 Active Baltazar Childers MD Active TRUETRACK TEST STRP Test twice a day GLUCOSE BLOO D 19295885512 Active KENDALL Juarez Active TRUETRACK BLOOD GLUCOSE W/DEVICE KIT Test twice a day BLOOD GLUCOSE MONITORING SUPPL 65758884340 Active Baltazar Chliders MD Activ e HYDROCODONE-ACETAMINOPHEN 7.5-325 MG TABS Take 1 tab every 6-8 hour s PRN HYDROCODONE-ACETAMINOPHEN 03600603543 Active Baltazar Childers MD Active NORTRIPTYLINE HCL 50 MG CAPS 1 every night for neuropathy 4 NORTRIPTYLINE HCL 30960199221 Active Baltazar Childers MD Acti ve GABAPENTIN 300 MG CAPS 1 three times a day GABAPE NTIN 13413628547 Active Baltazar Childers MD Active GABAPENTIN 300 MG CAPS 1 po qd x 2 days, then 1 po BID x 2 d ays, then 1 po TID GABAPENTIN 72947002634 No Longer Active Baltazar silverman MD Active TRAMADOL HCL 50 MG TABS 1 twice a day as needed for pain TRAMADOL HCL 69422012092 Active Baltazar Childers MD Active NAPROXEN 500 MG TABS 1 tablet by mouth twice daily NAPROXEN 97349959022 No Longer Active Baltazar Childers MD Active PROAIR HFA 108 (90 BASE) MCG/ACT AERS 2 puffs four times a d ay as needed ALBUTEROL SULFATE 24226127472 Active Baltazar Childers MD Active DEPO-TESTOSTERONE 200 MG/ML OIL as directed RUFINO TOSTERONE CYPIONATE 59552859224 No Longer Active Baltazar Childers MD Active LIPITOR 20 MG TABS Take one by mouth daily in evening ATORVASTATIN CALCIUM 91418004976 No Longer Active Baltazar Childers MD Activ e CRESTOR 10 MG TABS 1 by mouth every day R OSUVASTATIN CALCIUM 93047189394 No Longer Active Baltazar Childers MD Activ e PHENTERMINE HCL 37.5 MG TABS Take one by mouth daily 2 PHENTERMINE HCL 28253920679 No Longer Active Baltazar Childers MD Activ e ROBAXIN-750 750 MG TABS Take one by mouth daily ME THOCARBAMOL 12932686196 Active Baltazar Childers MD Active TIZANIDINE HCL 4 MG TABS 1 daily as needed for muscle spasm 2011 TIZANIDINE HCL 93654232734 No Longer Active Dawna Salazar RN Active [id number] 50-325-40 MG TABS 1 four time s a day as needed for heacache [id number] 86341307808 Active KENDALL Juarez Active SUMATRIPTAN SUCCINATE 100 MG TABS 1 tablet by mouth at onset of migraine as needed SUMATRIPTAN SUCCINATE 46617363370 Active Baltazar bynum MD Active LORATADINE 10 MG TABS Take one by mouth daily LORATADINE 62346397955 Active Baltazar Childers MD Active OMEPRAZOLE 20 MG CPDR Take one by mouth daily OMEPRAZOLE 35587695994 Active Baltazar Childers MD Active HYDROXYZINE HCL 25 MG TABS Take one by mouth daily HYDROXYZINE HCL 72632868676 Active Baltazar Childers MD Active ALPRAZOLAM 1 MG TABS 1 tablet by mouth daily at bedtime for restles s leg ALPRAZOLAM 91860339390 Active Baltazar Childers MD Active METFORMIN HCL 1000 MG TABS Take one by mouth twice daily METFORMIN HCL 06923241812 Active Baltazar Childers MD Active TIZANIDINE HCL 4 MG TABS 1 daily as needed for muscle spasm 2011 TIZANIDINE HCL 4 MG TABS 566098 TIZANIDINE HCL Inactiv e PHENTERMINE HCL 37.5 MG TABS Take one by mouth daily 2 PHENTERMINE HCL 37.5 MG TABS 189754 PHENTERMINE HCL Inactive CRESTOR 10 MG TABS 1 by mouth every day C RESTOR 10 MG TABS 415821 ROSUVASTATIN CALCIUM Inactive LIPITOR 20 MG TABS Take one by mouth daily in evening LIPITOR 20 MG TABS 652056 ATORVASTATIN CALCIUM Inactive DEPO-TESTOSTERONE 200 MG/ML OIL as directed 8 DEPO-TESTOSTERONE 200 MG/ML OIL 466275 TESTOSTERONE CYPIONATE Inactive NAPROXEN 500 MG TABS 1 tablet by mouth twice daily 201 07/27/22 NAPROXEN 500 MG TABS 549566 NAPROXEN Inactive GABAPENTIN 300 MG CAPS 1 po qd x 2 days, then 1 po BID x 2 d ays, then 1 po TID GABAPENTIN 300 MG CAPS 740412 GABAPENTIN Inact amie ONETOUCH ULTRA BLUE STRP Test twice a day ONETOUCH ULTRA BLUE STRP GLUCOSE BLOOD Inactive NAPROXEN SODIUM 220 MG ORAL TABS 1 three times a day as needed 2 NAPROXEN SODIUM 220 MG ORAL TABS 755603 NAPROXEN SODIUM Inactive TOUJEO SOLOSTAR 300 UNIT/ML SC SOPN 10 units SC daily TOUJEO SOLOSTAR 300 UNIT/ML SC SOPN INSULIN GLARGINE Inac tive SUCRALFATE 1 GM TABS 1 four times a day to coat the stomach 2015 SUCRALFATE 1 GM TABS 710677 SUCRALFATE Inactive ZITHROMAX Z-ISAIAS 250 MG TABS Take two tablets today and then 1 tablet daily for 4 days ZITHROMAX Z-ISAIAS 250 MG TABS 206518 AZITHROM YCIN Inactive Immunizations Vaccine Administration Date Value Standard Floyd cription pneumococcal immunization administered Pneumovax 23 [CVX33] pneumococcal polysaccharide vaccine, 23 valent Seasonal influenza vaccine, injectable, containing preservative, for > 3 years old (Afluria, FluLaval, Fluzone, Fluvirin, Fluarix, Agriflu(>= 18 yo)) Fluzone (>3 yrs.) [IOU199] Influenza, seasonal, inject able Seasonal influenza vaccine, injectable, containing preservative, for > 3 years old (Afluria, FluLaval, Fluzone, Fluvirin, Fluarix, Agriflu(>= 18 yo)) Fluzone (>3 yrs.) [LGS923] Influenza, seasonal, inject able Vital Signs Date [...] - Chem istry sodium, serum 139 mmol/L 827-948 7769/10/03 potassium, serum 4.7 mmol/L 3.5-5.2 chloride, serum 98 mmol/L 98-107 carbon dioxide, venous blood 28.7 mmol/L 21.0-32 .0 blood glucose 218 mg/dL 65-110 calcium, serum 9.8 mg/dL 8.5-10.1 urea nitrogen, blood 19 mg/dL 7-18 creatinine, serum 1.68 mg/dL 0.60-1.30 Lab Report: Basic Metabolic Panel, HGBA1 C - Chemistry sodium, serum 143 mmol/L 694-074 0350/06/19 potassium, serum 5.9 mmol/L 3.5-5.2 chloride, serum 105 mmol/L 98-107 carbon dioxide, venous blood 30.2 mmol/L 21.0-32 .0 blood glucose 189 mg/dL 65-110 calcium, serum 9.7 mg/dL 8.5-10.1 urea nitrogen, blood 37 mg/dL 7-18 creatinine, serum 2.11 mg/dL 0.55-1.30 hemoglobin A1C, blood, as % of total hemoglobin 8.2 % 4.3-6.0 Lab Report: CBC, Renal Panel - Chemistry sodium, serum 142 mmol/L 492-207 8688/08/11 potassium, serum 4.8 mmol/L 3.5-5.2 chloride, serum [...] Panel - Chemistry sodium, serum 143 mmol/L 355-252 1802/12/19 carbon dioxide, venous blood 32.5 mmol/L 21.0-32 .0 potassium, serum 4.9 mmol/L 3.5-5.2 chloride, serum 101 mmol/L 98-107 blood glucose 129 mg/dL 65-110 urea nitrogen, blood 18 mg/dL 7-18 creatinine, serum 1.79 mg/dL 0.55-1.30 alanine aminotransferase (SGPT), serum 34 U/L 12-78 aspartate aminotransferase (SGOT), serum 26 U/L 15-37 calcium, serum 8.9 mg/dL 8.5-10.1 bilirubin, serum, total 0.30 mg/dL 0.00-1.00 cholesterol, serum 214 mg/dL 590-388 0495/12/19 triglyceride, serum, fasting 351 mg/dL 30-200 HDL [...] 4.3-6.0 Encounters Code Encounter Date Provider Facility CPT-10909 Level 4 Est. Patient 12:25:11 CDT Baltazar Childers MD [facility] CPT-97931 Level 4 Est. Patient 14:22:31 CDT Baltzaar Childers MD [facility]-39390 Level 4 Est. Patient 15:44:38 CDT Shonna Parker APRN [facility]-97082 Level 4 Est. Patient 11:34:17 CDT Baltazar Childers MD [facility]-24023 Level 3 Est. Patient 16:40:40 CDT Baltazar Childers MD [facility]-91809 Level 4 Est. Patient 10:41:24 CDT Baltazar Childers MD [facility]-84021 Level 4 Est. Patient 16:01:48 CDT Baltazar Childers MD [facility]-35843 Level 4 Est. Patient 16:54:07 NATUROPATHIC ONCOLOGY PROVIDER Baltazar Childers MD [facility]-46443 Level 4 Est. Patient 15:42:12 CDT [facility] CPT-46495 Level 4 Est. Patient 11:29:55 CDT Baltazar [facility] CPT-30839 Level 4 Est. Patient 14:15:19 CDT Baltazar Childers MD [facility]-62433 Level 4 Est. Patient 12:20:13 CDT Baltazar Childers MD [facility]-08950 Level 4 Est. Patient 14:52:45 NATUROPATHIC ONCOLOGY PROVIDER Baltazar Childers [facility] CPT-67772 Level 4 Est. Patient 14:18:34 NATUROPATHIC ONCOLOGY PROVIDER Baltazar [facility]ers [facility] CPT-24519 Level 4 Est. Patient 15:18:29 CDT Baltazar Childers MD [facility]-36753 Level 3 Est. Patient 12:45:34 CDT Baltazar Childers MD [facility]-72693 Level 3 Est. Patient 10:10:11 CDT Baltazar [facility]ers [facility] CPT-17759 Level 3 Est. Patient 14:07:50 CDT Baltazar Childers MD [facility] CPT-93110 Level 4 Est. Patient 12:26:10 NATUROPATHIC ONCOLOGY PROVIDER Baltazar Childers MD [facility] CPT-28790 Level 4 Est. Patient 14:45:38 CDT Baltazar Childers MD [facility] CPT-80384 Level 4 New Patient 12:30:48 CDT Baltazar hinton MD [facility] Procedures Code Procedure Name Date Entry Date Standard Desc ription CPT-98446 First Vx - Ix admin via ID I M or jet injects without counseling by physician 13:08:59 CDT CPT-91635 Fluzone Quadrivalent Intramuscular Suspe nsion 0.5 ML 13:08:59 CDT CPT-48602 Venipuncture Draw Fee 12:04:12 CDT CPT-66070 Lipid - LAB USE ONLY 17:39:15 NATUROPATHIC ONCOLOGY PROVIDER 9 CPT-46018 HGBA1C - LAB USE ONLY 17:39:15 NATUROPATHIC ONCOLOGY PROVIDER CPT-13876 CMP - LAB USE ONLY 17:39:14 NATUROPATHIC ONCOLOGY PROVIDER CPT-82512 Venipuncture Draw Fee 17:39:14 NATUROPATHIC ONCOLOGY PROVIDER CPT-53021 First Vx - Ix admin via ID I M or jet injects without counseling by physician 16:55:17 NATUROPATHIC ONCOLOGY PROVIDER CPT-14529 Fluzone Quadrivalent Intramuscular Suspe nsion 0.5 ML 16:55:17 NATUROPATHIC ONCOLOGY PROVIDER CPT-62404 Renal Panel - LAB USE ONLY 17:39:20 CDT 201 10/31/07 CPT-41963 CBC - LAB USE ONLY 17:39:20 CDT CPT-70698 Venipuncture Draw Fee 17:39:20 CDT CPT-23698 Venipuncture Draw Fee 14:33:30 CDT CPT-23408 Renal Panel - LAB USE ONLY 14:33:30 CDT 201 10/31/07 CPT-49277 CBC - LAB USE ONLY 14:33:29 CDT CPT-34874 Venipuncture Draw Fee 14:50:21 NATUROPATHIC ONCOLOGY PROVIDER CPT-98092 Immunization Single Admin 17:35:35 CDT 2014 CPT-05072 Fluzone Quadrivalent preservative free ( >=3yrs.) 17:35:35 CDT CPT-30278 Venipuncture Draw Fee 12:10:27 NATUROPATHIC ONCOLOGY PROVIDER CPT-90337 Fluzone Quadrivalent Intramuscular Suspe nsion 0.5 ML 10:49:13 CDT CPT-48408 First Vx Component - Ix admi n via ID IM or jet inj without physician counseling 15:17:19 NATUROPATHIC ONCOLOGY PROVIDER CPT-45042 Pneumovax 23 15:17:19 NATUROPATHIC ONCOLOGY PROVIDER CPT-23389 Pneumovax 14:52:45 NATUROPATHIC ONCOLOGY PROVIDER CPT-47796 Venipuncture Draw Fee 14:06:30 NATUROPATHIC ONCOLOGY PROVIDER CPT-000 Give Appropriate Flu Vaccine 14:18:34 NATUROPATHIC ONCOLOGY PROVIDER 2 CPT-10800 Administration single or combination vac cine inc oral 14:46:00 NATUROPATHIC ONCOLOGY PROVIDER CPT-08870 Influenza split virus > age 3 14:46:00 NATUROPATHIC ONCOLOGY PROVIDER CPT-OV Office Visit 19:13:16 CDT CPT-15995 Zostavax 18:41:56 CDT CPT-49796 Administration single or combination vac cine inc oral 12:56:39 CDT CPT-83191 Zoster Vaccine (Zostavax) 12:56:39 CDT 2012 CPT-84745 Venipuncture Draw Fee 10:58:57 CDT CPT-23864 Sono pelvis non OB uterus ovaries cervix 17:45:04 CDT CPT-57545 Sono retroperitoneal complete kidneys an d bladder 17:14:36 CDT CPT-OV Office Visit 14:59:38 NATUROPATHIC ONCOLOGY PROVIDER CPT-J1070 Depo Testosterone 100 mg 14:50:13 CDT 03/05 CPT-73653 Abx/Therapy Injection 14:50:13 CDT CPT-12227 Administration single or combination vac cine inc oral 14:34:43 CDT CPT-70396 Influenza split virus > age 3 14:34:43 CDT CPT-J1070 Depo Testosterone 100 mg 17:37:13 CDT 01/11 CPT-40207 Abx/Therapy Injection 17:37:13 CDT CPT-68555 Venipuncture Draw Fee 16:30:13 CDT CPT-57913 Venipuncture Draw Fee 16:29:43 CDT CPT-J1070 Depo Testosterone 100 mg 14:45:38 CDT 01/11
--- OUTSIDE RECORDS SUMMARY | 2019-10-27 12:17 | XMS REPORT | Clinical Summary ---
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 Benign neoplasm of colon PERIPHERAL NEUROPATHY [...] of unspecified type of vessel, [place] or graft OTH NONSPC ABN FINDNG RAD&OTH [...] 1 tab daily for HTN AMLODIPINE BESYLATE 17517766165 Active Ct Ledesma IGNITION MECHANIC Active SYNTHROID 0.1 MG TAB 1 tablet by mouth daily LE VOTHYROXINE SODIUM 45628311763 Active Shonna Parker APRN Active GLIPIZIDE 10 MG TAB take 2 tablets twice daily GLIPIZIDE 60865044641 Active Baltazar Childers MD Active SUCRALFATE 1 GM TABS 1 four times a day to coat the stomach 2015 SUCRALFATE 28859475444 No Longer Active Baltazar Childers MD Active PEN NEEDLES 31G X 6 MM MISC use 1 daily INSULIN PEN NEEDLE 88390335404 Active Bella Suarez SECURITY MANAGER Active TOUJEO SOLOSTAR 300 UNIT/ML SC SOPN 10 units SC daily INSULIN GLARGINE 50213741937 No Longer Active Martita Godinez RMA Active LANTUS SOLOSTAR 100 UNIT/ML SC SOPN 10 units SC daily INSULIN GLARGINE 56977070371 Active KENDALL Juarez Active NAPROXEN SODIUM 220 MG ORAL TABS 1 three times a day as needed 2 NAPROXEN SODIUM 43241139756 No Longer Active Baltazar Childers MD Active ATORVASTATIN CALCIUM 20 MG ORAL TABS Take 1 tab daily ATORVASTATIN CALCIUM 23986790271 Active Baltazar Childers MD Active FUROSEMIDE 40 MG TABS Take one by mouth daily FUROSEMIDE 17362516625 Active Baltazar Childers MD Active LISINOPRIL 20 MG TABS Take one by mouth daily at bedtime LISINOPRIL 52035360458 No Longer Active Baltazar Childers MD Active ONETOUCH ULTRA BLUE STRP Test twice a day GLUCO SE BLOOD 56844117525 No Longer Active Baltazar Childers MD Active TRUEPLUS LANCETS 33G MISC Test twice a day LANCET S 27161486412 Active KENDALL Juarez Active TRUEDRAW LANCING DEVICE MISC Test twice a day L ANCET DEVICES 74952184509 Active Baltazar Childers MD Active TRUETRACK TEST STRP Test twice a day GLUCOSE BLOO D 48244922389 Active KENDALL Juarez Active TRUETRACK BLOOD GLUCOSE W/DEVICE KIT Test twice a day BLOOD GLUCOSE MONITORING SUPPL 45521596521 Active Baltazar Childers MD Activ e HYDROCODONE-ACETAMINOPHEN 7.5-325 MG TABS Take 1 tab every 6-8 hour s PRN HYDROCODONE-ACETAMINOPHEN 94490359381 Active Baltazar Childers MD Active NORTRIPTYLINE HCL 50 MG CAPS 1 every night for neuropathy 4 NORTRIPTYLINE HCL 26183143580 Active Baltazar Childers MD Acti ve GABAPENTIN 300 MG CAPS 1 three times a day GABAPE NTIN 82474010909 Active Baltazar Childers MD Active GABAPENTIN 300 MG CAPS 1 po qd x 2 days, then 1 po BID x 2 d ays, then 1 po TID GABAPENTIN 62080535871 No Longer Active Blatazar silverman MD Active TRAMADOL HCL 50 MG TABS 1 twice a day as needed for pain TRAMADOL HCL 65224298153 Active Baltazar Childers MD Active NAPROXEN 500 MG TABS 1 tablet by mouth twice daily NAPROXEN 74752337071 No Longer Active Baltazar Childers MD Active PROAIR HFA 108 (90 BASE) MCG/ACT AERS 2 puffs four times a d ay as needed ALBUTEROL SULFATE 86755876635 Active Baltazar Childers MD Active DEPO-TESTOSTERONE 200 MG/ML OIL as directed RUFINO TOSTERONE CYPIONATE 95145138856 No Longer Active Baltazar Childers MD Active LIPITOR 20 MG TABS Take one by mouth daily in evening ATORVASTATIN CALCIUM 26866666637 No Longer Active Baltazar Childers MD Activ e CRESTOR 10 MG TABS 1 by mouth every day R OSUVASTATIN CALCIUM 44225738775 No Longer Active Baltazar Chidlers MD Activ e PHENTERMINE HCL 37.5 MG TABS Take one by mouth daily 2 PHENTERMINE HCL 13514847526 No Longer Active Baltazar Childers MD Activ e ROBAXIN-750 750 MG TABS Take one by mouth daily ME THOCARBAMOL 84160963474 Active Baltazar Childers MD Active TIZANIDINE HCL 4 MG TABS 1 daily as needed for muscle spasm 2011 TIZANIDINE HCL 11150570709 No Longer Active Dawna Salazar RN Active [id number] 50-325-40 MG TABS 1 four time s a day as needed for heacache EAXKEIBEXN-[id number] 12744497873 Active Baltazar Childers MD Active SUMATRIPTAN SUCCINATE 100 MG TABS 1 tablet by mouth at onset of migraine as needed SUMATRIPTAN SUCCINATE 68930284832 Active Shonna richey APRN Active LORATADINE 10 MG TABS Take one by mouth daily LORATADINE 07073713367 Active Beth Carr CÉSARBetsey Active OMEPRAZOLE 20 MG CPDR Take one by mouth daily OMEPRAZOLE 90084024824 Active Baltazar Childers MD Active HYDROXYZINE HCL 25 MG TABS Take one by mouth daily HYDROXYZINE HCL 40454397439 Active Baltazar Childers MD Active ALPRAZOLAM 1 MG TABS 1 tablet by mouth daily at bedtime for restles s leg ALPRAZOLAM 07513898757 Active Baltazar Childers MD Active METFORMIN HCL 1000 MG TABS Take one by mouth twice daily METFORMIN HCL 03270599877 Active Baltazar Childers MD Active TIZANIDINE HCL 4 MG TABS 1 daily as needed for muscle spasm 2011 TIZANIDINE HCL 4 MG TABS 214862 TIZANIDINE HCL Inactiv e PHENTERMINE HCL 37.5 MG TABS Take one by mouth daily 2 PHENTERMINE HCL 37.5 MG TABS 067195 PHENTERMINE HCL Inactive CRESTOR 10 MG TABS 1 by mouth every day C RESTOR 10 MG TABS 114467 ROSUVASTATIN CALCIUM Inactive LIPITOR 20 MG TABS Take one by mouth daily in evening LIPITOR 20 MG TABS 039472 ATORVASTATIN CALCIUM Inactive DEPO-TESTOSTERONE 200 MG/ML OIL as directed 8 DEPO-TESTOSTERONE 200 MG/ML OIL 523083 TESTOSTERONE CYPIONATE Inactive NAPROXEN 500 MG TABS 1 tablet by mouth twice daily 201 07/27/22 NAPROXEN 500 MG TABS 654750 NAPROXEN Inactive GABAPENTIN 300 MG CAPS 1 po qd x 2 days, then 1 po BID x 2 d ays, then 1 po TID GABAPENTIN 300 MG CAPS 000591 GABAPENTIN Inact amie ONETOUCH ULTRA BLUE STRP Test twice a day ONETOUCH ULTRA BLUE STRP GLUCOSE BLOOD Inactive NAPROXEN SODIUM 220 MG ORAL TABS 1 three times a day as needed 2 NAPROXEN SODIUM 220 MG ORAL TABS 048276 NAPROXEN SODIUM Inactive TOUJEO SOLOSTAR 300 UNIT/ML SC SOPN 10 units SC daily TOUJEO SOLOSTAR 300 UNIT/ML SC SOPN INSULIN GLARGINE Inac tive SUCRALFATE 1 GM TABS 1 four times a day to coat the stomach 2015 SUCRALFATE 1 GM TABS 443556 SUCRALFATE Inactive Immunizations Vaccine Administration Date Value Standard Floyd cription pneumococcal immunization administered Pneumovax 23 [CVX33] pneumococcal polysaccharide vaccine, 23 valent Seasonal influenza vaccine, injectable, containing preservative, for > 3 years old (Afluria, FluLaval, Fluzone, Fluvirin, Fluarix, Agriflu(>= 18 yo)) Fluzone (>3 yrs.) [[id number]] Influenza, seasonal, inject able Seasonal influenza vaccine, injectable, containing preservative, for > 3 years old (Afluria, FluLaval, Fluzone, Fluvirin, Fluarix, Agriflu(>= 18 yo)) Fluzone (>3 yrs.) [[id number]] Influenza, seasonal, inject able Vital Signs Date [...] C - Chemistry sodium, serum 143 mmol/L 591-504 7110/06/19 potassium, serum 5.9 mmol/L 3.5-5.2 chloride, serum 105 mmol/L 98-107 carbon dioxide, venous blood 30.2 mmol/L 21.0-32 .0 blood glucose 189 mg/dL 65-110 calcium, serum 9.7 mg/dL 8.5-10.1 urea nitrogen, blood 37 mg/dL 7-18 creatinine, serum 2.11 mg/dL 0.55-1.30 hemoglobin A1C, blood, as % of total hemoglobin 8.2 % 4.3-6.0 Lab Report: CBC - Hematology [...] Panel - Chemistry sodium, serum 143 mmol/L 774-036 7883/12/19 carbon dioxide, venous blood 32.5 mmol/L 21.0-32 .0 potassium, serum 4.9 mmol/L 3.5-5.2 chloride, serum 101 mmol/L 98-107 blood glucose 129 mg/dL 65-110 urea nitrogen, blood 18 mg/dL 7-18 creatinine, serum 1.79 mg/dL 0.55-1.30 alanine aminotransferase (SGPT), serum 34 U/L 12-78 aspartate aminotransferase (SGOT), serum 26 U/L 15-37 calcium, serum 8.9 mg/dL 8.5-10.1 bilirubin, serum, total 0.30 mg/dL 0.00-1.00 cholesterol, serum 214 mg/dL 192-151 4072/12/19 triglyceride, serum, fasting 351 mg/dL 30-200 HDL [...] Panel - Chemistry sodium, serum 141 mmol/L 291-709 3067/08/08 potassium, serum 4.9 mmol/L 3.5-5.2 chloride, serum 101 mmol/L 98-107 carbon dioxide, venous blood 34.1 mmol/L 21.0-32 .0 creatinine, serum 1.98 mg/dL 0.55-1.30 blood glucose 193 mg/dL 65-110 urea nitrogen, blood 30 mg/dL 7-18 calcium, serum 9.8 mg/dL 8.5-10.1 Encounters Code Encounter Date Provider Facility CPT-38217 Level 4 Est. Patient 14:22:31 CDT Baltazar Childers MD [facility]-95760 Level 4 Est. Patient 15:44:38 [facility] Level 4 Est. Patient 11:34:17 CDT Baltazar Childers MD [facility] CPT-54695 Level 3 Est. Patient 16:40:40 CDT Baltazar Childers MD [facility] CPT-65819 Level 4 Est. Patient 10:41:24 CDT Baltazar Childers MD [facility]-53320 Level 4 Est. Patient 16:01:48 CDT Baltazar Childers MD [facility] CPT-38257 Level 4 Est. Patient 16:54:07 CORE MICROARCHITECT Baltazar Childers MD [facility]-98499 Level 4 Est. Patient 15:42:12 CDT Baltazar Childers MD [facility] CPT-92684 Level 4 Est. Patient 11:29:55 CDT Baltazar Childers MD [facility] CPT-94246 Level 4 Est. Patient 14:15:19 CDT Baltazar Childers MD [facility] CPT-63796 Level 4 Est. Patient 12:20:13 CDT Baltazar Childers MD [facility] CPT-44829 Level 4 Est. Patient 14:52:45 CORE MICROARCHITECT Baltazar Childers MD [facility] CPT-21713 Level 4 Est. Patient 14:18:34 CORE MICROARCHITECT Baltazar Childers MD [facility] CPT-50477 Level 4 Est. Patient 15:18:29 CDT Baltazar Childers MD [facility] CPT-67337 Level 3 Est. Patient 12:45:34 CDT Baltazar Childers MD [facility] CPT-38979 Level 3 Est. Patient 10:10:11 CDT Baltazar Childers MD [facility] CPT-87059 Level 3 Est. Patient 14:07:50 CDT Baltazar Childers MD [facility] CPT-81684 Level 4 Est. Patient 12:26:10 CORE MICROARCHITECT Baltazar Childers MD [facility] CPT-94982 Level 4 Est. Patient 14:45:38 CDT Baltazar Childers MD [facility] CPT-85467 Level 4 New Patient 12:30:48 CDT Baltazar hinton MD [facility] Procedures Code Procedure Name Date Entry Date Standard Desc ription CPT-67465 Lipid - LAB USE ONLY 17:39:15 CORE MICROARCHITECT 9 CPT-64414 HGBA1C - LAB USE ONLY 17:39:15 CORE MICROARCHITECT CPT-44694 CMP - LAB USE ONLY 17:39:14 CORE MICROARCHITECT CPT-86004 Venipuncture Draw Fee 17:39:14 CORE MICROARCHITECT CPT-15647 First Vx - Ix admin via ID I M or jet injects without counseling by physician 16:55:17 CORE MICROARCHITECT CPT-97021 Fluzone Quadrivalent Intramuscular Suspe nsion 0.5 ML 16:55:17 CORE MICROARCHITECT CPT-93145 Renal Panel - LAB USE ONLY 17:39:20 CDT 201 10/31/07 CPT-17445 CBC - LAB USE ONLY 17:39:20 CDT CPT-62661 Venipuncture Draw Fee 17:39:20 CDT CPT-13109 Venipuncture Draw Fee 14:33:30 CDT CPT-62800 Renal Panel - LAB USE ONLY 14:33:30 CDT 201 10/31/07 CPT-06349 CBC - LAB USE ONLY 14:33:29 CDT CPT-49636 Venipuncture Draw Fee 14:50:21 CORE MICROARCHITECT CPT-41903 Immunization Single Admin 17:35:35 CDT 2014 CPT-74041 Fluzone Quadrivalent preservative free ( >=3yrs.) 17:35:35 CDT CPT-46026 Venipuncture Draw Fee 12:10:27 CORE MICROARCHITECT CPT-73226 Fluzone Quadrivalent Intramuscular Suspe nsion 0.5 ML 10:49:13 CDT CPT-58509 First Vx Component - Ix admi n via ID IM or jet inj without physician counseling 15:17:19 CORE MICROARCHITECT CPT-83730 Pneumovax 23 15:17:19 CORE MICROARCHITECT CPT-55192 Pneumovax 14:52:45 CORE MICROARCHITECT CPT-44450 Venipuncture Draw Fee 14:06:30 CORE MICROARCHITECT CPT-000 Give Appropriate Flu Vaccine 14:18:34 CORE MICROARCHITECT 2 CPT-62350 Administration single or combination vac cine inc oral 14:46:00 CORE MICROARCHITECT CPT-70584 Influenza split virus > age 3 14:46:00 CORE MICROARCHITECT CPT-OV Office Visit 19:13:16 CDT CPT-03752 Zostavax 18:41:56 CDT CPT-88393 Administration single or combination vac cine inc oral 12:56:39 CDT CPT-63320 Zoster Vaccine (Zostavax) 12:56:39 CDT 2012 CPT-07581 Venipuncture Draw Fee 10:58:57 CDT CPT-79232 Sono pelvis non OB uterus ovaries cervix 17:45:04 CDT CPT-29594 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
--- OUTSIDE RECORDS SUMMARY | 2019-10-27 12:18 | XMS REPORT | Clinical Summary ---
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 Benign neoplasm of colon PERIPHERAL NEUROPATHY 356.9 [...] ronary atherosclerosis of unspecified type of vessel, [place] or graft OTH NONSPC ABN FINDNG RAD&OTH [...] a day to coat the stomach SUCRALFATE 97124033027 Active Baltazar Childers MD Active PEN NEEDLES 31G X 6 MM MISC use 1 daily INSULIN PEN NEEDLE 34828457270 Active Martita Herbert RMA Active TOUJEO SOLOSTAR 300 UNIT/ML SC SOPN 10 units SC daily INSULIN GLARGINE 05562304032 No Longer Active Martita Herbert RMA Active LANTUS SOLOSTAR 100 UNIT/ML SC SOPN 10 units SC daily INSULIN GLARGINE 79204402718 Active KENDALL Juarez Active NAPROXEN SODIUM 220 MG ORAL TABS 1 three times a day as needed 2 NAPROXEN SODIUM 89662003680 No Longer Active Baltazar Childers MD Active ATORVASTATIN CALCIUM 20 MG ORAL TABS Take 1 tab daily ATORVASTATIN CALCIUM 20010601009 Active Baltazar Childers MD Active FUROSEMIDE 40 MG TABS Take one by mouth daily FUROSEMIDE 50407051742 Active Baltazar Childers MD Active LISINOPRIL 20 MG TABS Take one by mouth daily at bedtime LISINOPRIL 03679436295 Active Baltazar Childers MD Active ONETOUCH ULTRA BLUE STRP Test twice a day GLUCO SE BLOOD 43147357283 No Longer Active Baltazar Childers MD Active TRUEPLUS LANCETS 33G MISC Test twice a day LANCET S 53489396588 Active KENDALL Juarez Active TRUEDRAW LANCING DEVICE MISC Test twice a day L ANCET DEVICES 98453355898 Active Baltazar Childers MD Active TRUETRACK TEST STRP Test twice a day GLUCOSE BLOO D 26601901947 Active KENDALL Juarez Active TRUETRACK BLOOD GLUCOSE W/DEVICE KIT Test twice a day BLOOD GLUCOSE MONITORING SUPPL 59832469996 Active Baltazar Childers MD Activ e HYDROCODONE-ACETAMINOPHEN 7.5-325 MG TABS Take 1 tab every 6-8 hour s PRN HYDROCODONE-ACETAMINOPHEN 89607864962 Active Baltazar Childers MD Active NORTRIPTYLINE HCL 50 MG CAPS 1 every night for neuropathy 4 NORTRIPTYLINE HCL 15815840820 Active Baltazar Childers MD Acti ve GABAPENTIN 300 MG CAPS 1 three times a day GABAPE NTIN 55185066886 Active Baltazar Childers MD Active GABAPENTIN 300 MG CAPS 1 po qd x 2 days, then 1 po BID x 2 d ays, then 1 po TID GABAPENTIN 31517206110 No Longer Active Baltazar silverman MD Active TRAMADOL HCL 50 MG TABS 1 twice a day as needed for pain TRAMADOL HCL 10245611634 Active Baltazar Childers MD Active NAPROXEN 500 MG TABS 1 tablet by mouth twice daily NAPROXEN 98408827291 No Longer Active Baltazar Childers MD Active PROAIR HFA 108 (90 BASE) MCG/ACT AERS 2 puffs four times a d ay as needed ALBUTEROL SULFATE 26376371566 Active Baltazar Childers MD Active DEPO-TESTOSTERONE 200 MG/ML OIL as directed RUFINO TOSTERONE CYPIONATE 74969737788 No Longer Active Baltazar Childers MD Active LIPITOR 20 MG TABS Take one by mouth daily in evening ATORVASTATIN CALCIUM 12234907500 No Longer Active Baltazar Childers MD Activ e CRESTOR 10 MG TABS 1 by mouth every day R OSUVASTATIN CALCIUM 61556272675 No Longer Active Baltazar Childers MD Activ e PHENTERMINE HCL 37.5 MG TABS Take one by mouth daily 2 PHENTERMINE HCL 98694173409 No Longer Active Baltazar Childers MD Activ e ROBAXIN-750 750 MG TABS Take one by mouth daily ME THOCARBAMOL 21129959338 Active Baltazar Childers MD Active TIZANIDINE HCL 4 MG TABS 1 daily as needed for muscle spasm 2011 TIZANIDINE HCL 89191492130 No Longer Active Dawna Salazar RN Active [id number]-BHZEVULZ 50-325-40 MG TABS 1 four time s a day as needed for heacache SISHRRCCIF-ITZB-LTFZQLTJ 85062354059 Active Baltazar Childers MD Active SUMATRIPTAN SUCCINATE 100 MG TABS 1 tablet by mouth at onset of migraine as needed SUMATRIPTAN SUCCINATE 81263369550 Active KENDALL Juarez Active LORATADINE 10 MG TABS Take one by mouth daily LORATADINE 13368885537 Active Baltazar Childers MD Active OMEPRAZOLE 20 MG CPDR Take one by mouth daily OMEPRAZOLE 17530218064 Active Argentina Lyons Active HYDROXYZINE HCL 25 MG TABS Take one by mouth daily HYDROXYZINE HCL 96281627727 Active Baltazar Childers MD Active GLIPIZIDE 10 MG TABS 1 tablet by mouth twice daily GLIPIZIDE 56690252538 Active Baltazar Childers MD Active ALPRAZOLAM 1 MG TABS 1 tablet by mouth daily at bedtime for restles s leg ALPRAZOLAM 46014913490 Active Baltazar Childers MD Active METFORMIN HCL 1000 MG TABS Take one by mouth twice daily METFORMIN HCL 07848441209 Active Baltazar Childers MD Active TIZANIDINE HCL 4 MG TABS 1 daily as needed for muscle spasm 2011 TIZANIDINE HCL 4 MG TABS 779100 TIZANIDINE HCL Inactiv e PHENTERMINE HCL 37.5 MG TABS Take one by mouth daily 2 PHENTERMINE HCL 37.5 MG TABS 575994 PHENTERMINE HCL Inactive CRESTOR 10 MG TABS 1 by mouth every day C RESTOR 10 MG TABS 859621 ROSUVASTATIN CALCIUM Inactive LIPITOR 20 MG TABS Take one by mouth daily in evening LIPITOR 20 MG TABS 822154 ATORVASTATIN CALCIUM Inactive DEPO-TESTOSTERONE 200 MG/ML OIL as directed 8 DEPO-TESTOSTERONE 200 MG/ML OIL 421553 TESTOSTERONE CYPIONATE Inactive NAPROXEN 500 MG TABS 1 tablet by mouth twice daily 201 07/27/22 NAPROXEN 500 MG TABS 995663 NAPROXEN Inactive GABAPENTIN 300 MG CAPS 1 po qd x 2 days, then 1 po BID x 2 d ays, then 1 po TID GABAPENTIN 300 MG CAPS 485980 GABAPENTIN Inact amie ONETOUCH ULTRA BLUE STRP Test twice a day ONETOUCH ULTRA BLUE STRP GLUCOSE BLOOD Inactive NAPROXEN SODIUM 220 MG ORAL TABS 1 three times a day as needed 2 NAPROXEN SODIUM 220 MG ORAL TABS 396054 NAPROXEN SODIUM Inactive TOUJEO SOLOSTAR 300 UNIT/ML [...] Fluarix, Agriflu(>= 18 yo)) Fluzone (>3 yrs.) [[id number]] Influenza, seasonal, inject able Seasonal influenza vaccine, injectable, containing preservative, for > 3 years old (Afluria, FluLaval, Fluzone, Fluvirin, Fluarix, Agriflu(>= 18 yo)) Fluzone (>3 yrs.) [[id number]] Influenza, seasonal, inject able Vital Signs Date [...] C - Chemistry sodium, serum 139 mmol/L 164-447 6103/07/07 potassium, serum 4.5 mmol/L 3.5-5.2 chloride, serum [...] 7.9 % 4.3-6.0 sodium, serum 139 mmol/L 990-363 8804/02/04 potassium, serum 5.4 mmol/L 3.5-5.2 chloride, serum [...] Panel - Chemistry sodium, serum 138 mmol/L 336-266 2665/11/23 carbon dioxide, venous blood 32.4 mmol/L 21.0-32 .0 potassium, serum 5.7 mmol/L 3.5-5.2 chloride, serum 98 mmol/L 98-107 blood glucose 136 mg/dL 65-110 urea nitrogen, blood 18 mg/dL 7-18 creatinine, serum 1.71 mg/dL 0.55-1.30 alanine aminotransferase (SGPT), serum 71 U/L 12-78 aspartate aminotransferase (SGOT), serum 34 U/L 15-37 calcium, serum 9.4 mg/dL 8.5-10.1 bilirubin, serum, total 0.40 mg/dL 0.00-1.00 cholesterol, serum 405 mg/dL 764-927 0598/11/23 triglyceride, serum, fasting 709 mg/dL 30-200 HDL cholesterol, serum 53 mg/dL 32-96 LDL cholesterol, serum 210 mg/dL 0-130 Lab Report: HGBA1C - Chemistry hemoglobin A1C, blood, as % of total hemoglobin 7.7 % 4.3-6.0 Lab Report: MICROALB/CREAT W/RATIO - Maryam jo albumin/creatinine ratio, urine < 30 mg/g mg/g{creat} 0-2 9 Lab Report: MICROALB/CREAT W/RATIO - Lab microalbumin, urine 10 0-19 Lab Report: Renal Panel - Chemistry sodium, serum 141 mmol/L 310-943 9684/08/08 potassium, serum 4.9 mmol/L 3.5-5.2 chloride, serum [...] mg/dL Encounters Code Encounter Date Provider Facility CPT-56917 Level 4 Est. Patient 11:34:17 CDT Baltazar Childers MD [facility] CPT-25154 Level 3 Est. Patient 16:40:40 CDT Baltazar Childers MD [facility] CPT-36407 Level 4 Est. Patient 10:41:24 CDT Baltazar Childers MD [facility] CPT-63834 Level 4 Est. Patient 16:01:48 CDT Baltazar Childers MD [facility] CPT-58982 Level 4 Est. Patient 16:54:07 PROJECTOR BOOTH OPERATOR Baltazar Childers MD [facility] CPT-16308 Level 4 Est. Patient 15:42:12 CDT Baltazar Childers MD [facility] CPT-67753 Level 4 Est. Patient 11:29:55 CDT Baltazar Childers MD [facility] CPT-60734 Level 4 Est. Patient 14:15:19 CDT Baltazar Childers MD [facility] CPT-84291 Level 4 Est. Patient 12:20:13 CDT Baltazar Childers MD [facility] CPT-68032 Level 4 Est. Patient 14:52:45 PROJECTOR BOOTH OPERATOR Baltazar Childers MD [facility] CPT-14327 Level 4 Est. Patient 14:18:34 PROJECTOR BOOTH OPERATOR Baltazar Childers MD [facility] CPT-28136 Level 4 Est. Patient 15:18:29 CDT Baltazar Childers MD [facility] CPT-04678 Level 3 Est. Patient 12:45:34 CDT Baltazar Childers MD [facility] CPT-20869 Level 3 Est. Patient 10:10:11 CDT Baltazar Childers MD [facility] CPT-96096 Level 3 Est. Patient 14:07:50 CDT Baltazar Childers MD [facility] CPT-09202 Level 4 Est. Patient 12:26:10 PROJECTOR BOOTH OPERATOR Baltazar Childers MD [facility] CPT-42027 Level 4 Est. Patient 14:45:38 CDT Baltazar Childers MD [facility] CPT-11597 Level 4 New Patient 12:30:48 CDT Baltazar hinton MD [facility] Procedures Code Procedure Name Date Entry Date Standard Desc ription CPT-79183 Renal Panel - LAB USE ONLY 17:39:20 CDT 201 10/31/07 CPT-00663 CBC - LAB USE ONLY 17:39:20 CDT CPT-42272 Venipuncture Draw Fee 17:39:20 CDT CPT-31460 Venipuncture Draw Fee 14:33:30 CDT CPT-76355 Renal Panel - LAB USE ONLY 14:33:30 CDT 201 10/31/07 CPT-75989 CBC - LAB USE ONLY 14:33:29 CDT CPT-81913 Venipuncture Draw Fee 14:50:21 PROJECTOR BOOTH OPERATOR CPT-51439 Immunization Single Admin 17:35:35 CDT 2014 CPT-62480 Fluzone Quadrivalent preservative free ( >=3yrs.) 17:35:35 CDT CPT-97499 Venipuncture Draw Fee 12:10:27 PROJECTOR BOOTH OPERATOR CPT-96878 Fluzone Quadrivalent Intramuscular Suspe nsion 0.5 ML 10:49:13 CDT CPT-32010 First Vx Component - Ix admi n via ID IM or jet inj without physician counseling 15:17:19 PROJECTOR BOOTH OPERATOR CPT-56047 Pneumovax 15:17:19 PROJECTOR BOOTH OPERATOR CPT-22258 Pneumovax 14:52:45 PROJECTOR BOOTH OPERATOR CPT-48645 Venipuncture Draw Fee 14:06:30 PROJECTOR BOOTH OPERATOR CPT-000 Give Appropriate Flu Vaccine 14:18:34 PROJECTOR BOOTH OPERATOR 2 CPT-19816 Administration single or combination vac cine inc oral 14:46:00 PROJECTOR BOOTH OPERATOR CPT-80264 Influenza split virus > age 3 14:46:00 PROJECTOR BOOTH OPERATOR CPT-OV Office Visit 19:13:16 CDT CPT-42567 Zostavax 18:41:56 CDT CPT-34120 Administration single or combination vac cine inc oral 12:56:39 CDT CPT-99123 Zoster Vaccine (Zostavax) 12:56:39 CDT 2012 CPT-95924 Venipuncture Draw Fee 10:58:57 CDT CPT-54009 Sono pelvis non OB uterus ovaries cervix 17:45:04 CDT CPT-68137 Sono retroperitoneal complete kidneys an d bladder 17:14:36 CDT CPT-OV Office Visit 14:59:38 PROJECTOR BOOTH OPERATOR CPT-J1070 Depo Testosterone 100 mg 14:50:13 CDT 03/05 CPT-02039 Abx/Therapy Injection 14:50:13 CDT CPT-98997 Administration single or combination vac cine inc oral 14:34:43 CDT CPT-33448 Influenza split virus > age 3 14:34:43 CDT CPT-J1070 Depo Testosterone 100 mg 17:37:13 CDT 01/11 CPT-24006 Abx/Therapy Injection 17:37:13 CDT CPT-36969 Venipuncture Draw Fee 16:30:13 CDT CPT-79405 Venipuncture Draw Fee 16:29:43 CDT CPT-J1070 Depo Testosterone 100 mg 14:45:38 CDT 01/11
--- OUTSIDE RECORDS SUMMARY | 2019-10-27 12:18 | XMS REPORT | Clinical Summary ---
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 Benign neoplasm of colon PERIPHERAL NEUROPATHY 356.9 [...] a day as needed 2 NAPROXEN SODIUM 80339551551 No Longer Active Baltazar Childers MD Active ATORVASTATIN CALCIUM 20 MG ORAL TABS Take 1 tab daily ATORVASTATIN CALCIUM 86821713308 Active KENDALL Juarez Active FUROSEMIDE 40 MG TABS Take one by mouth daily FUROSEMIDE 10106895084 Active Baltazar Childers MD Active LISINOPRIL 20 MG TABS Take one by mouth daily at bedtime LISINOPRIL 54897239851 Active KENDALL Juarez Active ONETOUCH ULTRA BLUE STRP Test twice a day GLUCO SE BLOOD 75086151463 No Longer Active Baltazar Childers MD Active TRUEPLUS LANCETS 33G MISC Test twice a day LANCET S 10206450042 Active KENDALL Juarez Active TRUEDRAW LANCING DEVICE MISC Test twice a day L ANCET DEVICES 81790004030 Active Baltazar Childers MD Active TRUETRACK TEST STRP Test twice a day GLUCOSE BLOO D 35206235813 Active Baltazar Childers MD Active TRUETRACK BLOOD GLUCOSE W/DEVICE KIT Test twice a day BLOOD GLUCOSE MONITORING SUPPL 72055083500 Active Baltazar Childers MD Activ e HYDROCODONE-ACETAMINOPHEN 7.5-325 MG TABS Take 1 tab every 6-8 hour s PRN HYDROCODONE-ACETAMINOPHEN 55791288250 Active Baltazar Childers MD Active NORTRIPTYLINE HCL 50 MG CAPS 1 every night for neuropathy 4 NORTRIPTYLINE HCL 89767808959 Active Baltazar Childers MD Acti ve GABAPENTIN 300 MG CAPS 1 three times a day GABAPE NTIN 67915924094 Active KENDALL Juarez Active GABAPENTIN 300 MG CAPS 1 po qd x 2 days, then 1 po BID x 2 d ays, then 1 po TID GABAPENTIN 24821774366 No Longer Active Baltazar silverman MD Active TRAMADOL HCL 50 MG TABS 1 twice a day as needed for pain TRAMADOL HCL 06898244141 Active Baltazar Childers MD Active NAPROXEN 500 MG TABS 1 tablet by mouth twice daily NAPROXEN 97403927846 No Longer Active Baltazar Childers MD Active PROAIR HFA 108 (90 BASE) MCG/ACT AERS 2 puffs four times a d ay as needed ALBUTEROL SULFATE 87700875801 Active KENDALL Juarez Active DEPO-TESTOSTERONE 200 MG/ML OIL as directed RUFINO TOSTERONE CYPIONATE 60395559027 No Longer Active Baltazar Childers MD Active LIPITOR 20 MG TABS Take one by mouth daily in evening ATORVASTATIN CALCIUM 15374454565 No Longer Active Baltazar Childers MD Activ e CRESTOR 10 MG TABS 1 by mouth every day R OSUVASTATIN CALCIUM 14922830876 No Longer Active Baltazar Childers MD Activ e PHENTERMINE HCL 37.5 MG TABS Take one by mouth daily 2 PHENTERMINE HCL 50178365541 No Longer Active Baltazar Childers MD Activ e ROBAXIN-750 750 MG TABS Take one by mouth daily ME THOCARBAMOL 24274625024 Active Baltazar Childers MD Active TIZANIDINE HCL 4 MG TABS 1 daily as needed for muscle spasm 2011 TIZANIDINE HCL 28008596339 No Longer Active Dawna Salazar RN Active [id number]-[id number]-[id number] 50-325-40 MG TABS 1 four time s a day as needed for heacache [id number]-[id number] 33147109359 Active KENDALL Juarez Active SUMATRIPTAN SUCCINATE 100 MG TABS 1 tablet by mouth at onset of migraine as needed SUMATRIPTAN SUCCINATE 00434830964 Active KENDALL Juarez Active LORATADINE 10 MG TABS Take one by mouth daily LORATADINE 73787555024 Active Baltazar Childers MD Active OMEPRAZOLE 20 MG CPDR Take one by mouth daily OMEPRAZOLE 93649114237 Active Baltazar Childers MD Active HYDROXYZINE HCL 25 MG TABS Take one by mouth daily HYDROXYZINE HCL 25585932408 Active Baltazar Childers MD Active GLIPIZIDE 10 MG TABS 1 tablet by mouth twice daily GLIPIZIDE 15623196323 Active KENDALL Juarez Active ALPRAZOLAM 1 MG TABS 1 tablet by mouth daily at bedtime for restles s leg ALPRAZOLAM 59239356995 Active Baltazar Childers MD Active METFORMIN HCL 1000 MG TABS Take one by mouth twice daily METFORMIN HCL 55612396221 Active Baltazar Childers MD Active TIZANIDINE HCL 4 MG TABS 1 daily as needed for muscle spasm 2011 TIZANIDINE HCL 4 MG TABS 629766 TIZANIDINE HCL Inactiv e PHENTERMINE HCL 37.5 MG TABS Take one by mouth daily 2 PHENTERMINE HCL 37.5 MG TABS 918720 PHENTERMINE HCL Inactive CRESTOR 10 MG TABS 1 by mouth every day C RESTOR 10 MG TABS ROSUVASTATIN CALCIUM Inactive LIPITOR 20 MG TABS Take one by mouth daily in evening LIPITOR 20 MG TABS 925651 ATORVASTATIN CALCIUM Inactive DEPO-TESTOSTERONE 200 MG/ML OIL as directed 8 DEPO-TESTOSTERONE 200 MG/ML OIL 663037 TESTOSTERONE CYPIONATE Inactive NAPROXEN 500 MG TABS 1 tablet by mouth twice daily 201 07/27/22 NAPROXEN 500 MG TABS 765779 NAPROXEN Inactive GABAPENTIN 300 MG CAPS 1 po qd x 2 days, then 1 po BID x 2 d ays, then 1 po TID GABAPENTIN 300 MG CAPS 296307 GABAPENTIN Inact amie ONETOUCH ULTRA BLUE STRP Test twice a day ONETOUCH ULTRA BLUE STRP GLUCOSE BLOOD Inactive NAPROXEN SODIUM 220 MG ORAL TABS 1 three times a day as needed 2 NAPROXEN SODIUM 220 MG ORAL TABS 599087 NAPROXEN SODIUM Inactive Immunizations Vaccine Administration Date Value Standard Floyd cription pneumococcal immunization administered Pneumovax 23 [CVX33] pneumococcal polysaccharide vaccine, 23 valent Seasonal influenza vaccine, injectable, containing preservative, for > 3 years old (Afluria, FluLaval, Fluzone, Fluvirin, Fluarix, Agriflu(>= 18 yo)) Fluzone (>3 yrs.) [[id number]] Influenza, seasonal, inject able Seasonal influenza vaccine, injectable, containing preservative, for > 3 years old (Afluria, FluLaval, Fluzone, Fluvirin, Fluarix, Agriflu(>= 18 yo)) Fluzone (>3 yrs.) [[id number]] Influenza, seasonal, inject able Vital Signs Date [...] 7.9 % 4.3-6.0 sodium, serum 139 mmol/L 594-759 0380/02/04 potassium, serum 5.4 mmol/L 3.5-5.2 chloride, serum [...] Panel - Chemistry sodium, serum 138 mmol/L 264-389 8095/11/23 carbon dioxide, venous blood 32.4 mmol/L 21.0-32 .0 potassium, serum 5.7 mmol/L 3.5-5.2 chloride, serum 98 mmol/L 98-107 blood glucose 136 mg/dL 65-110 urea nitrogen, blood 18 mg/dL 7-18 creatinine, serum 1.71 mg/dL 0.55-1.30 alanine aminotransferase (SGPT), serum 71 U/L 12-78 aspartate aminotransferase (SGOT), serum 34 U/L 15-37 calcium, serum 9.4 mg/dL 8.5-10.1 bilirubin, serum, total 0.40 mg/dL 0.00-1.00 cholesterol, serum 405 mg/dL 732-150 4317/11/23 triglyceride, serum, fasting 709 mg/dL 30-200 HDL [...] mg/dL Encounters Code Encounter Date Provider Facility CPT-33497 Level 4 Est. Patient 16:01:48 CDT Baltazar Childers MD [facility] CPT-93934 Level 4 Est. Patient 16:54:07 HAY BALER Baltazar Childers MD [facility] CPT-07686 Level 4 Est. Patient 15:42:12 CDT Baltazar Childers MD [facility] CPT-33689 Level 4 Est. Patient 11:29:55 CDT Baltazar Childers MD [facility] CPT-42869 Level 4 Est. Patient 14:15:19 CDT Baltazar Childers MD [facility] CPT-25252 Level 4 Est. Patient 12:20:13 CDT Baltazar Childers MD [facility] CPT-02626 Level 4 Est. Patient 14:52:45 HAY BALER Baltazar Childers MD [facility] CPT-60982 Level 4 Est. Patient 14:18:34 HAY BALER Baltazar Childers MD [facility] CPT-75954 Level 4 Est. Patient 15:18:29 CDT Baltazar Childers MD [facility] CPT-73296 Level 3 Est. Patient 12:45:34 CDT Baltazar Childers MD [facility] CPT-20627 Level 3 Est. Patient 10:10:11 CDT Baltazar Childers MD [facility] CPT-15011 Level 3 Est. Patient 14:07:50 CDT Baltazar Childers MD [facility] CPT-27223 Level 4 Est. Patient 12:26:10 HAY BALER Baltazar Childers MD [facility] CPT-06085 Level 4 Est. Patient 14:45:38 CDT Baltazar Childers MD [facility] CPT-81358 Level 4 New Patient 12:30:48 CDT Baltazar hinton MD [facility] Procedures Code Procedure Name Date Entry Date Standard Desc ription CPT-18690 Venipuncture Draw Fee 14:50:21 HAY BALER CPT-86940 Immunization Single Admin 17:35:35 CDT 2014 CPT-79006 Fluzone Quadrivalent preservative free ( >=3yrs.) 17:35:35 CDT CPT-39526 Venipuncture Draw Fee 12:10:27 HAY BALER CPT-06327 Fluzone Quadrivalent Intramuscular Suspe nsion 0.5 ML 10:49:13 CDT CPT-90196 First Vx Component - Ix admi n via ID IM or jet inj without physician counseling 15:17:19 HAY BALER CPT-08900 Pneumovax 15:17:19 HAY BALER CPT-14669 Pneumovax 14:52:45 HAY BALER CPT-49111 Venipuncture Draw Fee 14:06:30 HAY BALER CPT-000 Give Appropriate Flu Vaccine 14:18:34 HAY BALER 2 CPT-56496 Administration single or combination vac cine inc oral 14:46:00 HAY BALER CPT-36667 Influenza split virus > age 3 14:46:00 HAY BALER CPT-OV Office Visit 19:13:16 CDT CPT-42810 Zostavax 18:41:56 CDT CPT-78784 Administration single or combination vac cine inc oral 12:56:39 CDT CPT-79652 Zoster Vaccine (Zostavax) 12:56:39 CDT 2012 CPT-45577 Venipuncture Draw Fee 10:58:57 CDT CPT-63333 Sono pelvis non OB uterus ovaries cervix 17:45:04 CDT CPT-67259 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
--- OUTSIDE RECORDS SUMMARY | 2019-10-27 12:18 | XMS REPORT | Clinical Summary ---
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 Benign neoplasm of colon PERIPHERAL NEUROPATHY 356.9 [...] ronary atherosclerosis of unspecified type of vessel, [place] or graft OTH NONSPC ABN FINDNG RAD&OTH [...] MISC use 1 daily INSULIN PEN NEEDLE 18779269215 Active Martita Herbert RMA Active TOUJEO SOLOSTAR 300 UNIT/ML SC SOPN 10 units SC daily INSULIN GLARGINE 82398257441 No Longer Active Martita Herbert RMA Active LANTUS SOLOSTAR 100 UNIT/ML SC SOPN 10 units SC daily INSULIN GLARGINE 79680478934 Active KENDALL Juarez Active NAPROXEN SODIUM 220 MG ORAL TABS 1 three times a day as needed 2 NAPROXEN SODIUM 30700102995 No Longer Active Baltazar Childers MD Active ATORVASTATIN CALCIUM 20 MG ORAL TABS Take 1 tab daily ATORVASTATIN CALCIUM 03273901268 Active KENDALL Juarez Active FUROSEMIDE 40 MG TABS Take one by mouth daily FUROSEMIDE 39803062640 Active Baltazar Childers MD Active LISINOPRIL 20 MG TABS Take one by mouth daily at bedtime LISINOPRIL 15435994783 Active Baltazar Childers MD Active ONETOUCH ULTRA BLUE STRP Test twice a day GLUCO SE BLOOD 40128286740 No Longer Active Baltazar Childers MD Active TRUEPLUS LANCETS 33G MISC Test twice a day LANCET S 16999701023 Active KENDALL Juarez Active TRUEDRAW LANCING DEVICE MISC Test twice a day L ANCET DEVICES 05692426504 Active Baltazar Childers MD Active TRUETRACK TEST STRP Test twice a day GLUCOSE BLOO D 23989279282 Active KENDALL Juarez Active TRUETRACK BLOOD GLUCOSE W/DEVICE KIT Test twice a day BLOOD GLUCOSE MONITORING SUPPL 31961475510 Active Baltazar Childers MD Activ e HYDROCODONE-ACETAMINOPHEN 7.5-325 MG TABS Take 1 tab every 6-8 hour s PRN HYDROCODONE-ACETAMINOPHEN 94027091501 Active Baltazar Childers MD Active NORTRIPTYLINE HCL 50 MG CAPS 1 every night for neuropathy 4 NORTRIPTYLINE HCL 74407466013 Active Baltazar Childers MD Acti ve GABAPENTIN 300 MG CAPS 1 three times a day GABAPE NTIN 72981182905 Active Baltazar Childers MD Active GABAPENTIN 300 MG CAPS 1 po qd x 2 days, then 1 po BID x 2 d ays, then 1 po TID GABAPENTIN 22052650724 No Longer Active Baltazar silverman MD Active TRAMADOL HCL 50 MG TABS 1 twice a day as needed for pain TRAMADOL HCL 20397502272 Active Baltazar Childers MD Active NAPROXEN 500 MG TABS 1 tablet by mouth twice daily NAPROXEN 86781381887 No Longer Active Baltazar Childers MD Active PROAIR HFA 108 (90 BASE) MCG/ACT AERS 2 puffs four times a d ay as needed ALBUTEROL SULFATE 89405167761 Active KENDALL Juarez Active DEPO-TESTOSTERONE 200 MG/ML OIL as directed RUFINO TOSTERONE CYPIONATE 10777510498 No Longer Active Baltazar Childers MD Active LIPITOR 20 MG TABS Take one by mouth daily in evening ATORVASTATIN CALCIUM 49336424751 No Longer Active Baltazar Childers MD Activ e CRESTOR 10 MG TABS 1 by mouth every day R OSUVASTATIN CALCIUM 11836461358 No Longer Active Baltazar Childers MD Activ e PHENTERMINE HCL 37.5 MG TABS Take one by mouth daily 2 PHENTERMINE HCL 86412755821 No Longer Active Baltazar Childers MD Activ e ROBAXIN-750 750 MG TABS Take one by mouth daily ME THOCARBAMOL 49232923108 Active Baltazar Childers MD Active TIZANIDINE HCL 4 MG TABS 1 daily as needed for muscle spasm 2011 TIZANIDINE HCL 76160911808 No Longer Active Dawna Salazar RN Active [id number]-[id number]-[id number] 50-325-40 MG TABS 1 four time s a day as needed for heacache [id number] 99169916828 Active Baltazar Childers MD Active SUMATRIPTAN SUCCINATE 100 MG TABS 1 tablet by mouth at onset of migraine as needed SUMATRIPTAN SUCCINATE 60373710260 Active KENDALL Juarez Active LORATADINE 10 MG TABS Take one by mouth daily LORATADINE 35026670311 Active Baltazar Childers MD Active OMEPRAZOLE 20 MG CPDR Take one by mouth daily OMEPRAZOLE 11349800522 Active [place] Fitzgeralder Active HYDROXYZINE HCL 25 MG TABS Take one by mouth daily HYDROXYZINE HCL 72545616909 Active Baltazar Childers MD Active GLIPIZIDE 10 MG TABS 1 tablet by mouth twice daily GLIPIZIDE 53795162541 Active Baltazar Childers MD Active ALPRAZOLAM 1 MG TABS 1 tablet by mouth daily at bedtime for restles s leg ALPRAZOLAM 19086775113 Active Baltazar Childers MD Active METFORMIN HCL 1000 MG TABS Take one by mouth twice daily METFORMIN HCL 15903246355 Active Baltazar Childers MD Active TIZANIDINE HCL 4 MG TABS 1 daily as needed for muscle spasm 2011 TIZANIDINE HCL 4 MG TABS 378765 TIZANIDINE HCL Inactiv e PHENTERMINE HCL 37.5 MG TABS Take one by mouth daily 2 PHENTERMINE HCL 37.5 MG TABS 106988 PHENTERMINE HCL Inactive CRESTOR 10 MG TABS 1 by mouth every day C RESTOR 10 MG TABS 273589 ROSUVASTATIN CALCIUM Inactive LIPITOR 20 MG TABS Take one by mouth daily in evening LIPITOR 20 MG TABS 627131 ATORVASTATIN CALCIUM Inactive DEPO-TESTOSTERONE 200 MG/ML OIL as directed 8 DEPO-TESTOSTERONE 200 MG/ML OIL 834321 TESTOSTERONE CYPIONATE Inactive NAPROXEN 500 MG TABS 1 tablet by mouth twice daily 201 07/27/22 NAPROXEN 500 MG TABS 939512 NAPROXEN Inactive GABAPENTIN 300 MG CAPS 1 po qd x 2 days, then 1 po BID x 2 d ays, then 1 po TID GABAPENTIN 300 MG CAPS 062988 GABAPENTIN Inact amie ONETOUCH ULTRA BLUE STRP Test twice a day ONETOUCH ULTRA BLUE STRP GLUCOSE BLOOD Inactive NAPROXEN SODIUM 220 MG ORAL TABS 1 three times a day as needed 2 NAPROXEN SODIUM 220 MG ORAL TABS 135329 NAPROXEN SODIUM Inactive TOUJEO SOLOSTAR 300 UNIT/ML [...] Fluarix, Agriflu(>= 18 yo)) Fluzone (>3 yrs.) [[id number]] Influenza, seasonal, inject able Seasonal influenza vaccine, injectable, containing preservative, for > 3 years old (Afluria, FluLaval, Fluzone, Fluvirin, Fluarix, Agriflu(>= 18 yo)) Fluzone (>3 yrs.) [TCZ917] Influenza, seasonal, inject able Vital Signs Date [...] C - Chemistry sodium, serum 139 mmol/L 124-823 2148/07/07 potassium, serum 4.5 mmol/L 3.5-5.2 chloride, serum [...] 7.9 % 4.3-6.0 sodium, serum 139 mmol/L 160-708 1858/02/04 potassium, serum 5.4 mmol/L 3.5-5.2 chloride, serum [...] Panel - Chemistry sodium, serum 138 mmol/L 442-225 6411/11/23 carbon dioxide, venous blood 32.4 mmol/L 21.0-32 .0 potassium, serum 5.7 mmol/L 3.5-5.2 chloride, serum 98 mmol/L 98-107 blood glucose 136 mg/dL 65-110 urea nitrogen, blood 18 mg/dL 7-18 creatinine, serum 1.71 mg/dL 0.55-1.30 alanine aminotransferase (SGPT), serum 71 U/L 12-78 aspartate aminotransferase (SGOT), serum 34 U/L 15-37 calcium, serum 9.4 mg/dL 8.5-10.1 bilirubin, serum, total 0.40 mg/dL 0.00-1.00 cholesterol, serum 405 mg/dL 280-512 9318/11/23 triglyceride, serum, fasting 709 mg/dL 30-200 HDL [...] Panel - Chemistry sodium, serum 141 mmol/L 263-464 0707/08/08 potassium, serum 4.9 mmol/L 3.5-5.2 chloride, serum [...] mg/dL Encounters Code Encounter Date Provider Facility CPT-78948 Level 3 Est. Patient 16:40:40 CDT Baltazar Childers MD [facility] CPT-12151 Level 4 Est. Patient 10:41:24 CDT Baltazar Childers MD [facility]-88548 Level 4 Est. Patient 16:01:48 CDT Baltazar Childers MD [facility]-05668 Level 4 Est. Patient 16:54:07 NEUROLOGY MANAGER Baltazar Childers MD [facility]-26158 Level 4 Est. Patient 15:42:12 CDT Baltazar Childers MD [facility] CPT-53188 Level 4 Est. Patient 11:29:55 CDT Baltazar Childers MD [facility]-09397 Level 4 Est. Patient 14:15:19 CDT Baltazar Childers MD [facility] CPT-68823 Level 4 Est. Patient 12:20:13 CDT Baltazar Childers MD [facility]-05274 Level 4 Est. Patient 14:52:45 NEUROLOGY MANAGER Baltazar Childers MD [facility] CPT-42344 Level 4 Est. Patient 14:18:34 NEUROLOGY MANAGER Baltazar Childers MD [facility]-63173 Level 4 Est. Patient 15:18:29 CDT Baltazar Childers MD [facility] CPT-44437 Level 3 Est. Patient 12:45:34 CDT Baltazar Childers MD [facility] CPT-78312 Level 3 Est. Patient 10:10:11 CDT Baltazar Childers MD [facility]-84109 Level 3 Est. Patient 14:07:50 CDT Baltazar Childers MD [facility]-19963 Level 4 Est. Patient 12:26:10 NEUROLOGY MANAGER Baltazar Childers MD [facility]-25711 Level 4 Est. Patient 14:45:38 CDT Baltazar Childers MD [facility] CPT-48574 Level 4 New Patient 12:30:48 CDT Baltazar hinton MD [facility] Procedures Code Procedure Name Date Entry Date Standard Desc ription CPT-08573 Renal Panel - LAB USE ONLY 17:39:20 CDT 201 10/31/07 CPT-36054 CBC - LAB USE ONLY 17:39:20 CDT CPT-66293 Venipuncture Draw Fee 17:39:20 CDT CPT-00442 Venipuncture Draw Fee 14:33:30 CDT CPT-69353 Renal Panel - LAB USE ONLY 14:33:30 CDT 201 10/31/07 CPT-05005 CBC - LAB USE ONLY 14:33:29 CDT CPT-95444 Venipuncture Draw Fee 14:50:21 NEUROLOGY MANAGER CPT-09803 Immunization Single Admin 17:35:35 CDT 2014 CPT-45698 Fluzone Quadrivalent preservative free ( >=3yrs.) 17:35:35 CDT CPT-75883 Venipuncture Draw Fee 12:10:27 NEUROLOGY MANAGER CPT-40501 Fluzone Quadrivalent Intramuscular Suspe nsion 0.5 ML 10:49:13 CDT CPT-69544 First Vx Component - Ix admi n via ID IM or jet inj without physician counseling 15:17:19 NEUROLOGY MANAGER CPT-44900 Pneumovax 23 15:17:19 NEUROLOGY MANAGER CPT-05346 Pneumovax 14:52:45 NEUROLOGY MANAGER CPT-89968 Venipuncture Draw Fee 14:06:30 NEUROLOGY MANAGER CPT-000 Give Appropriate Flu Vaccine 14:18:34 NEUROLOGY MANAGER 2 013/11/04 CPT-56311 Administration single or combination vac cine inc oral 14:46:00 NEUROLOGY MANAGER CPT-72074 Influenza split virus > age 3 14:46:00 NEUROLOGY MANAGER CPT-OV Office Visit 19:13:16 CDT CPT-32224 Zostavax 18:41:56 CDT CPT-88235 Administration single or combination vac cine inc oral 12:56:39 CDT CPT-07435 Zoster Vaccine (Zostavax) 12:56:39 CDT 2012 CPT-88147 Venipuncture Draw Fee 10:58:57 CDT CPT-84446 Sono pelvis non OB uterus ovaries cervix 17:45:04 CDT CPT-50321 Sono retroperitoneal complete kidneys an d bladder 17:14:36 CDT CPT-OV Office Visit 14:59:38 NEUROLOGY MANAGER CPT-J1070 Depo Testosterone 100 mg 14:50:13 CDT 03/05 CPT-57386 Abx/Therapy Injection 14:50:13 CDT CPT-01309 Administration single or combination vac cine inc oral 14:34:43 CDT CPT-06920 Influenza split virus > age 3 14:34:43 CDT CPT-J1070 Depo Testosterone 100 mg 17:37:13 CDT 01/11 CPT-74206 Abx/Therapy Injection 17:37:13 CDT CPT-47321 Venipuncture Draw Fee 16:30:13 CDT CPT-70378 Venipuncture Draw Fee 16:29:43 CDT CPT-J1070 Depo Testosterone 100 mg 14:45:38 CDT 01/11
--- OUTSIDE RECORDS SUMMARY | 2019-10-27 12:19 | XMS REPORT | Clinical Summary ---
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 Benign neoplasm of colon PERIPHERAL NEUROPATHY [...] a day as needed 2 NAPROXEN SODIUM 11396121081 No Longer Active Baltazar Childers MD Active ATORVASTATIN CALCIUM 20 MG ORAL TABS Take 1 tab daily ATORVASTATIN CALCIUM 19742408849 Active Kelly Iraheta LPN Active FUROSEMIDE 40 MG TABS Take one by mouth daily FUROSEMIDE 78815679884 Active Baltazar Childers MD Active LISINOPRIL 20 MG TABS Take one by mouth daily at bedtime LISINOPRIL 80173540221 Active Baltazar Childers MD Active ONETOUCH ULTRA BLUE STRP Test twice a day GLUCO SE BLOOD 24250038019 No Longer Active Baltazar Childers MD Active TRUEPLUS LANCETS 33G MISC Test twice a day LANCET S 70931089174 Active Baltazar Childers MD Active TRUEDRAW LANCING DEVICE MISC Test twice a day L ANCET DEVICES 33551392874 Active Baltazar Childers MD Active TRUETRACK TEST STRP Test twice a day GLUCOSE BLOO D 47958059313 Active Baltazar Childers MD Active TRUETRACK BLOOD GLUCOSE W/DEVICE KIT Test twice a day BLOOD GLUCOSE MONITORING SUPPL 51566108938 Active Baltazar Childers MD Activ e HYDROCODONE-ACETAMINOPHEN 7.5-325 MG TABS Take 1 tab every 6-8 hour s PRN HYDROCODONE-ACETAMINOPHEN 38432649455 Active Baltazar Childers MD Active NORTRIPTYLINE HCL 50 MG CAPS 1 every night for neuropathy 4 NORTRIPTYLINE HCL 14323167185 Active Baltazar Childers MD Acti ve GABAPENTIN 300 MG CAPS 1 three times a day GABAPE NTIN 51419860999 Active Kelly Iraheta LPN Active GABAPENTIN 300 MG CAPS 1 po qd x 2 days, then 1 po BID x 2 d ays, then 1 po TID GABAPENTIN 16070323042 No Longer Active Baltazar silverman MD Active TRAMADOL HCL 50 MG TABS 1 twice a day as needed for pain TRAMADOL HCL 23841886297 Active Baltazar Childers MD Active NAPROXEN 500 MG TABS 1 tablet by mouth twice daily NAPROXEN 74011173941 No Longer Active Baltazar Childers MD Active PROAIR HFA 108 (90 BASE) MCG/ACT AERS 2 puffs four times a d ay as needed ALBUTEROL SULFATE 80653183780 Active Baltazar Childers MD Active DEPO-TESTOSTERONE 200 MG/ML OIL as directed RUFINO TOSTERONE CYPIONATE 11736688320 No Longer Active Baltazar Childers MD Active LIPITOR 20 MG TABS Take one by mouth daily in evening ATORVASTATIN CALCIUM 40847740877 No Longer Active Baltazar Childers MD Activ e CRESTOR 10 MG TABS 1 by mouth every day R OSUVASTATIN CALCIUM 64870122914 No Longer Active Baltazar Childers MD Activ e PHENTERMINE HCL 37.5 MG TABS Take one by mouth daily 2 PHENTERMINE HCL 52542585323 No Longer Active Baltazar Childers MD Activ e ROBAXIN-750 750 MG TABS Take one by mouth daily ME THOCARBAMOL 53854751568 Active Baltazar Childers MD Active TIZANIDINE HCL 4 MG TABS 1 daily as needed for muscle spasm 2011 TIZANIDINE HCL 88423578890 No Longer Active Dawna Salazar RN Active [id number] 50-325-40 MG TABS 1 four time s a day as needed for heacache [id number] 44463331742 Active Baltazar Childers MD Active SUMATRIPTAN SUCCINATE 100 MG TABS 1 tablet by mouth at onset of migraine as needed SUMATRIPTAN SUCCINATE 91617523325 Active Melody Paez Active LORATADINE 10 MG TABS Take one by mouth daily LORATADINE 12726809524 Active Baltazar Childers MD Active OMEPRAZOLE 20 MG CPDR Take one by mouth daily OMEPRAZOLE 62393987455 Active Baltazar Childers MD Active HYDROXYZINE HCL 25 MG TABS Take one by mouth daily HYDROXYZINE HCL 04990323656 Active Baltazar Childers MD Active GLIPIZIDE 10 MG TABS 1 tablet by mouth twice daily GLIPIZIDE 99865105133 Active Baltazar Childers MD Active ALPRAZOLAM 1 MG TABS 1 tablet by mouth daily at bedtime for restles s leg ALPRAZOLAM 97055627632 Active Baltazar Childers MD Active METFORMIN HCL 1000 MG TABS Take one by mouth twice daily METFORMIN HCL 68179027592 Active Baltazar Childers MD Active TIZANIDINE HCL 4 MG TABS 1 daily as needed for muscle spasm 2011 TIZANIDINE HCL 4 MG TABS 897882 TIZANIDINE HCL Inactiv e PHENTERMINE HCL 37.5 MG TABS Take one by mouth daily 2 PHENTERMINE HCL 37.5 MG TABS 658353 PHENTERMINE HCL Inactive CRESTOR 10 MG TABS 1 by mouth every day C RESTOR 10 MG TABS ROSUVASTATIN CALCIUM Inactive LIPITOR 20 MG TABS Take one by mouth daily in evening LIPITOR 20 MG TABS 502494 ATORVASTATIN CALCIUM Inactive DEPO-TESTOSTERONE 200 MG/ML OIL as directed 8 DEPO-TESTOSTERONE 200 MG/ML OIL 039802 TESTOSTERONE CYPIONATE Inactive NAPROXEN 500 MG TABS 1 tablet by mouth twice daily 201 07/27/22 NAPROXEN 500 MG TABS 069209 NAPROXEN Inactive GABAPENTIN 300 MG CAPS 1 po qd x 2 days, then 1 po BID x 2 d ays, then 1 po TID GABAPENTIN 300 MG CAPS 108420 GABAPENTIN Inact amie ONETOUCH ULTRA BLUE STRP Test twice a day ONETOUCH ULTRA BLUE STRP GLUCOSE BLOOD Inactive NAPROXEN SODIUM 220 MG ORAL TABS 1 three times a day as needed 2 NAPROXEN SODIUM 220 MG ORAL TABS 345757 NAPROXEN SODIUM Inactive Immunizations Vaccine Administration Date Value Standard Floyd cription pneumococcal immunization administered Pneumovax 23 [CVX33] pneumococcal polysaccharide vaccine, 23 valent Seasonal influenza vaccine, injectable, containing preservative, for > 3 years old (Afluria, FluLaval, Fluzone, Fluvirin, Fluarix, Agriflu(>= 18 yo)) Fluzone (>3 yrs.) [CUS328] Influenza, seasonal, inject able Seasonal influenza vaccine, injectable, containing preservative, for > 3 years old (Afluria, FluLaval, Fluzone, Fluvirin, Fluarix, Agriflu(>= 18 yo)) Fluzone (>3 yrs.) [LNG260] Influenza, seasonal, inject able Vital Signs Date [...] - Chem istry sodium, serum 140 mmol/L 780-008 2141/05/05 potassium, serum 4.9 mmol/L 3.5-5.2 chloride, serum 99 mmol/L 98-107 carbon dioxide, venous blood 34.3 mmol/L 21.0-32 .0 blood glucose 132 mg/dL 65-110 calcium, serum 10.1 mg/dL 8.5-10.1 urea nitrogen, blood 23 mg/dL 7-18 creatinine, serum 2.00 mg/dL 0.60-1.30 Lab Report: CBC, Renal Panel - Chemistry sodium, serum 139 mmol/L 507-704 3226/01/20 potassium, serum 5.3 mmol/L 3.5-5.2 chloride, serum [...] Panel - Chemistry sodium, serum 138 mmol/L 184-346 7624/11/23 carbon dioxide, venous blood 32.4 mmol/L 21.0-32 .0 potassium, serum 5.7 mmol/L 3.5-5.2 chloride, serum 98 mmol/L 98-107 blood glucose 136 mg/dL 65-110 urea nitrogen, blood 18 mg/dL 7-18 creatinine, serum 1.71 mg/dL 0.55-1.30 alanine aminotransferase (SGPT), serum 71 U/L 12-78 aspartate aminotransferase (SGOT), serum 34 U/L 15-37 calcium, serum 9.4 mg/dL 8.5-10.1 bilirubin, serum, total 0.40 mg/dL 0.00-1.00 cholesterol, serum 405 mg/dL 182-198 3350/11/23 triglyceride, serum, fasting 709 mg/dL 30-200 HDL cholesterol, serum 53 mg/dL 32-96 LDL cholesterol, serum 210 mg/dL 0-130 Lab Report: HGBA1C - Chemistry hemoglobin A1C, blood, as % of total hemoglobin 7.3 % 4.3-6.0 hemoglobin A1C, blood, as % of total hemoglobin 7.7 % 4.3-6.0 Lab Report: MICROALB/CREAT W/RATIO - Mrayam jo albumin/creatinine ratio, urine < 30 mg/g mg/g{creat} 0-2 9 Lab Report: MICROALB/CREAT W/RATIO - Lab microalbumin, urine 10 0-19 Office Visit: Medication refill - Chemis try cholesterol, target level 200 mg/dL LDL target level 70 mg/dL HDL cholesterol, serum, target level 40 mg/dL triglyceride, target level 150 mg/dL Encounters Code Encounter Date Provider Facility CPT-32734 Level 4 Est. Patient 16:54:07 TELEVISION ANTENNA INSTALLER Baltazar Childers MD [facility] CPT-67011 Level 4 Est. Patient 15:42:12 CDT Baltazar Childers MD [facility] CPT-26768 Level 4 Est. Patient 11:29:55 CDT Baltazar Childers MD [facility] CPT-01321 Level 4 Est. Patient 14:15:19 CDT Baltazar Childers MD [facility] CPT-68926 Level 4 Est. Patient 12:20:13 CDT Baltazar Childers MD [facility] CPT-37442 Level 4 Est. Patient 14:52:45 TELEVISION ANTENNA INSTALLER Baltazar Childers MD [facility] CPT-57376 Level 4 Est. Patient 14:18:34 TELEVISION ANTENNA INSTALLER Baltazar Childers MD [facility] CPT-34672 Level 4 Est. Patient 15:18:29 CDT Baltazar Childers MD [facility] CPT-10811 Level 3 Est. Patient 12:45:34 CDT Baltazar Childers MD [facility] CPT-58729 Level 3 Est. Patient 10:10:11 CDT Baltazar Childers MD [facility] CPT-96245 Level 3 Est. Patient 14:07:50 CDT Baltazar Childers MD [facility] CPT-30820 Level 4 Est. Patient 12:26:10 TELEVISION ANTENNA INSTALLER Baltazar Childers MD [facility] CPT-96683 Level 4 Est. Patient 14:45:38 CDT Baltazar Childers MD [facility] CPT-79264 Level 4 New Patient 12:30:48 CDT Baltazar hinton MD [facility] Procedures Code Procedure Name Date Entry Date Standard Desc ription CPT-14800 Immunization Single Admin 17:35:35 CDT 2014 CPT-86284 Fluzone Quadrivalent preservative free ( >=3yrs.) 17:35:35 CDT CPT-96388 Venipuncture Draw Fee 12:10:27 TELEVISION ANTENNA INSTALLER CPT-31926 Fluzone Quadrivalent Intramuscular Suspe nsion 0.5 ML 10:49:13 CDT CPT-71619 First Vx Component - Ix admi n via ID IM or jet inj without physician counseling 15:17:19 TELEVISION ANTENNA INSTALLER CPT-71955 Pneumovax 23 15:17:19 TELEVISION ANTENNA INSTALLER CPT-71805 Pneumovax 14:52:45 TELEVISION ANTENNA INSTALLER CPT-23160 Venipuncture Draw Fee 14:06:30 TELEVISION ANTENNA INSTALLER CPT-000 Give Appropriate Flu Vaccine 14:18:34 TELEVISION ANTENNA INSTALLER 2 CPT-78714 Administration single or combination vac cine inc oral 14:46:00 TELEVISION ANTENNA INSTALLER CPT-65885 Influenza split virus > age 3 14:46:00 TELEVISION ANTENNA INSTALLER CPT-OV Office Visit 19:13:16 CDT CPT-64318 Zostavax 18:41:56 CDT CPT-53282 Administration single or combination vac cine inc oral 12:56:39 CDT CPT-15291 Zoster Vaccine (Zostavax) 12:56:39 CDT 2012 CPT-84576 Venipuncture Draw Fee 10:58:57 CDT CPT-16758 Sono pelvis non OB uterus ovaries cervix 17:45:04 CDT CPT-24452 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
--- OUTSIDE RECORDS SUMMARY | 2019-10-27 12:19 | XMS REPORT | Clinical Summary ---
Author Author Admin, Elba Lance Michelle [facility] Address Unknown Phone Unavailable Allergies, Adverse 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 [employer]ER Benign neoplasm of colon PERIPHERAL NEUROPATHY 356.9 [...] ronary atherosclerosis of unspecified type of vessel, hopi or graft OTH NONSPC ABN FINDNG RAD&OTH [...] 1 tab daily for HTN AMLODIPINE BESYLATE 68073183260 Active Ct Ledesma DIRECTOR OF BUSINESS OPERATIONS Active SYNTHROID 0.1 MG TAB 1 tablet by mouth daily LE VOTHYROXINE SODIUM 64377805940 Active Shonna Parker APRN Active GLIPIZIDE 10 MG TAB take 2 tablets twice daily GLIPIZIDE 68981312384 Active Baltazar Childers MD Active SUCRALFATE 1 GM TABS 1 four times a day to coat the stomach 2015 SUCRALFATE 21252131077 No Longer Active Baltazar Childers MD Active PEN NEEDLES 31G X 6 MM MISC use 1 daily INSULIN PEN NEEDLE 67670354973 Active 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 Active TOUJEO SOLOSTAR 300 UNIT/ML SC SOPN 10 units SC daily INSULIN GLARGINE 31492989520 No Longer Active Martita Godinez RMA Active LANTUS SOLOSTAR 100 UNIT/ML SC SOPN 10 units SC daily INSULIN GLARGINE 48076424913 Active KENDALL Juarez Active NAPROXEN SODIUM 220 MG ORAL TABS 1 three times a day as needed 2 NAPROXEN SODIUM 13288844629 No Longer Active Baltazar Childers MD Active ATORVASTATIN CALCIUM 20 MG ORAL TABS Take 1 tab daily ATORVASTATIN CALCIUM 75423571676 Active Baltazar Childers MD Active FUROSEMIDE 40 MG TABS Take one by mouth daily FUROSEMIDE 05588234493 Active Baltazar Childers MD Active LISINOPRIL 20 MG TABS Take one by mouth daily at bedtime LISINOPRIL 95197483341 No Longer Active Baltazar Childers MD Active ONETOUCH ULTRA BLUE STRP Test twice a day GLUCO SE BLOOD 25866847529 No Longer Active Baltazar Childers MD Active TRUEPLUS LANCETS 33G MISC Test twice a day LANCET S 49072794559 Active KENDALL Juarez Active TRUEDRAW LANCING DEVICE MISC Test twice a day L ANCET DEVICES 52240859612 Active Baltazar Childers MD Active TRUETRACK TEST STRP Test twice a day GLUCOSE BLOO D 49101694083 Active KENDALL Juarez Active TRUETRACK BLOOD GLUCOSE W/DEVICE KIT Test twice a day BLOOD GLUCOSE MONITORING SUPPL 25918519235 Active Baltazar Childers MD Activ e HYDROCODONE-ACETAMINOPHEN 7.5-325 MG TABS Take 1 tab every 6-8 hour s PRN HYDROCODONE-ACETAMINOPHEN 86614079821 Active Baltazar Childers MD Active NORTRIPTYLINE HCL 50 MG CAPS 1 every night for neuropathy 4 NORTRIPTYLINE HCL 47197660329 Active Baltazar Childers MD Acti ve GABAPENTIN 300 MG CAPS 1 three times a day GABAPE NTIN 45100873724 Active Baltazar Childers MD Active GABAPENTIN 300 MG CAPS 1 po qd x 2 days, then 1 po BID x 2 d ays, then 1 po TID GABAPENTIN 65358751315 No Longer Active Baltazar silverman MD Active TRAMADOL HCL 50 MG TABS 1 twice a day as needed for pain TRAMADOL HCL 60601730849 Active Baltazar Childers MD Active NAPROXEN 500 MG TABS 1 tablet by mouth twice daily NAPROXEN 36274652360 No Longer Active Baltazar Childers MD Active PROAIR HFA 108 (90 BASE) MCG/ACT AERS 2 puffs four times a d ay as needed ALBUTEROL SULFATE 59905345909 Active Baltazar Childers MD Active DEPO-TESTOSTERONE 200 MG/ML OIL as directed RUFINO TOSTERONE CYPIONATE 72250717910 No Longer Active Baltazar Childers MD Active LIPITOR 20 MG TABS Take one by mouth daily in evening ATORVASTATIN CALCIUM 79330415673 No Longer Active Baltazar Childers MD Activ e CRESTOR 10 MG TABS 1 by mouth every day R OSUVASTATIN CALCIUM 38792811122 No Longer Active Baltazar Childers MD Activ e PHENTERMINE HCL 37.5 MG TABS Take one by mouth daily 2 PHENTERMINE HCL 65789081045 No Longer Active Baltazar Childers MD Activ e ROBAXIN-750 750 MG TABS Take one by mouth daily ME THOCARBAMOL 44915343930 Active Baltazar Childers MD Active TIZANIDINE HCL 4 MG TABS 1 daily as needed for muscle spasm 2011 TIZANIDINE HCL 89208745792 No Longer Active Dawna Salazar RN Active [id number] 50-325-40 MG TABS 1 four time s a day as needed for heacache [id number] 11129328580 Active Baltazar Childers MD Active SUMATRIPTAN SUCCINATE 100 MG TABS 1 tablet by mouth at onset of migraine as needed SUMATRIPTAN SUCCINATE 48844399174 Active Shonna richey APRN Active LORATADINE 10 MG TABS Take one by mouth daily LORATADINE 76692174829 Active Beth Carr CÉSARBetsey Active OMEPRAZOLE 20 MG CPDR Take one by mouth daily OMEPRAZOLE 30509391703 Active Baltazar Childers MD Active HYDROXYZINE HCL 25 MG TABS Take one by mouth daily HYDROXYZINE HCL 64347939231 Active Baltazar Childers MD Active ALPRAZOLAM 1 MG TABS 1 tablet by mouth daily at bedtime for restles s leg ALPRAZOLAM 32459952640 Active Baltazar Childers MD Active METFORMIN HCL 1000 MG TABS Take one by mouth twice daily METFORMIN HCL 78465868549 Active Baltazar Childers MD Active TIZANIDINE HCL 4 MG TABS 1 daily as needed for muscle spasm 2011 TIZANIDINE HCL 4 MG TABS 669543 TIZANIDINE HCL Inactiv e PHENTERMINE HCL 37.5 MG TABS Take one by mouth daily 2 PHENTERMINE HCL 37.5 MG TABS 416311 PHENTERMINE HCL Inactive CRESTOR 10 MG TABS 1 by mouth every day C RESTOR 10 MG TABS 275029 ROSUVASTATIN CALCIUM Inactive LIPITOR 20 MG TABS Take one by mouth daily in evening LIPITOR 20 MG TABS 586700 ATORVASTATIN CALCIUM Inactive DEPO-TESTOSTERONE 200 MG/ML OIL as directed 8 DEPO-TESTOSTERONE 200 MG/ML OIL 153044 TESTOSTERONE CYPIONATE Inactive NAPROXEN 500 MG TABS 1 tablet by mouth twice daily 201 07/27/22 NAPROXEN 500 MG TABS 409588 NAPROXEN Inactive GABAPENTIN 300 MG CAPS 1 po qd x 2 days, then 1 po BID x 2 d ays, then 1 po TID GABAPENTIN 300 MG CAPS 240494 GABAPENTIN Inact amie ONETOUCH ULTRA BLUE STRP Test twice a day ONETOUCH ULTRA BLUE STRP GLUCOSE BLOOD Inactive NAPROXEN SODIUM 220 MG ORAL TABS 1 three times a day as needed 2 NAPROXEN SODIUM 220 MG ORAL TABS 342252 NAPROXEN SODIUM Inactive TOUJEO SOLOSTAR 300 UNIT/ML SC SOPN 10 units SC daily TOUJEO SOLOSTAR 300 UNIT/ML SC SOPN INSULIN GLARGINE Inac tive SUCRALFATE 1 GM TABS 1 four times a day to coat the stomach 2015 SUCRALFATE 1 GM TABS 824052 SUCRALFATE Inactive Immunizations Vaccine Administration Date Value Standard Floyd cription pneumococcal immunization administered Pneumovax 23 [CVX33] pneumococcal polysaccharide vaccine, 23 valent Seasonal influenza vaccine, injectable, containing preservative, for > 3 years old (Afluria, FluLaval, Fluzone, Fluvirin, Fluarix, Agriflu(>= 18 yo)) Fluzone (>3 yrs.) [VNR052] Influenza, seasonal, inject able Seasonal influenza vaccine, injectable, containing preservative, for > 3 years old (Afluria, FluLaval, Fluzone, Fluvirin, Fluarix, Agriflu(>= 18 yo)) Fluzone (>3 yrs.) [DCF084] Influenza, seasonal, inject able Vital Signs Date [...] weight E&M 240.0 [lb_av] Weight Measure d blood pressure, diastolic 81 mm[Hg] BP [place] blood pressure, systolic 132 mm[Hg] BP sys pulse rate E&M 88 /min Heart rate temperature E&M 97.2 [degF] Body temp erature weight E&M 243.5 [lb_av] Weight Measure d Diagnostic Results Date Name Value Unit Range Description Lab Report: Basic Metabolic Panel, HGBA1 C - Chemistry sodium, serum 143 mmol/L 562-146 0044/06/19 potassium, serum 5.9 mmol/L 3.5-5.2 chloride, serum [...] Panel - Chemistry sodium, serum 143 mmol/L 152-754 3969/12/19 carbon dioxide, venous blood 32.5 mmol/L 21.0-32 .0 potassium, serum 4.9 mmol/L 3.5-5.2 chloride, serum 101 mmol/L 98-107 blood glucose 129 mg/dL 65-110 urea nitrogen, blood 18 mg/dL 7-18 creatinine, serum 1.79 mg/dL 0.55-1.30 alanine aminotransferase (SGPT), serum 34 U/L 12-78 aspartate aminotransferase (SGOT), serum 26 U/L 15-37 calcium, serum 8.9 mg/dL 8.5-10.1 bilirubin, serum, total 0.30 mg/dL 0.00-1.00 cholesterol, serum 214 mg/dL 885-880 2341/12/19 triglyceride, serum, fasting 351 mg/dL 30-200 HDL [...] Panel - Chemistry sodium, serum 141 mmol/L 130-150 5616/08/08 potassium, serum 4.9 mmol/L 3.5-5.2 chloride, serum 101 mmol/L 98-107 carbon dioxide, venous blood 34.1 mmol/L 21.0-32 .0 creatinine, serum 1.98 mg/dL 0.55-1.30 blood glucose 193 mg/dL 65-110 urea nitrogen, blood 30 mg/dL 7-18 calcium, serum 9.8 mg/dL 8.5-10.1 Encounters Code Encounter Date Provider Facility CPT-27327 Level 4 Est. Patient 14:22:31 CDT Baltazar Childers MD [facility] CPT-56963 Level 4 Est. Patient 15:44:38 [facility] 4 Est. Patient 11:34:17 CDT Baltazar Childers MD [facility] CPT-19521 Level 3 Est. Patient 16:40:40 CDT Baltazar Childers MD [facility] CPT-31875 Level 4 Est. Patient 10:41:24 CDT Baltazar Childers MD [facility] CPT-16251 Level 4 Est. Patient 16:01:48 CDT Baltazar Childers MD [facility] CPT-16714 Level 4 Est. Patient 16:54:07 FISCAL OFFICER Baltazar Childers MD [facility] CPT-37020 Level 4 Est. Patient 15:42:12 CDT Baltazar Childers MD [facility] CPT-57044 Level 4 Est. Patient 11:29:55 CDT Baltazar Childers MD [facility] CPT-85209 Level 4 Est. Patient 14:15:19 CDT Baltazar Childers MD [facility] CPT-85510 Level 4 Est. Patient 12:20:13 CDT Baltazar Childers MD [facility] CPT-31493 Level 4 Est. Patient 14:52:45 FISCAL OFFICER Baltazar Childers MD [facility] CPT-06019 Level 4 Est. Patient 14:18:34 FISCAL OFFICER Baltazar Childers MD [facility] CPT-59424 Level 4 Est. Patient 15:18:29 CDT Baltazar Childers MD [facility] CPT-31896 Level 3 Est. Patient 12:45:34 CDT Baltazar Childers MD [facility] CPT-65606 Level 3 Est. Patient 10:10:11 CDT Baltazar Childers MD [facility] CPT-16729 Level 3 Est. Patient 14:07:50 CDT Baltazar Childers MD [facility] CPT-86402 Level 4 Est. Patient 12:26:10 FISCAL OFFICER Baltazar Childers MD [facility] CPT-63614 Level 4 Est. Patient 14:45:38 CDT Baltazar Childers MD [facility] CPT-09967 Level 4 New Patient 12:30:48 CDT Baltazar hinton MD [facility] Procedures Code Procedure Name Date Entry Date Standard Desc ription CPT-13799 Lipid - LAB USE ONLY 17:39:15 FISCAL OFFICER 9 CPT-01989 HGBA1C - LAB USE ONLY 17:39:15 FISCAL OFFICER CPT-53973 CMP - LAB USE ONLY 17:39:14 FISCAL OFFICER CPT-01743 Venipuncture Draw Fee 17:39:14 FISCAL OFFICER CPT-71999 First Vx - Ix admin via ID I M or jet injects without counseling by physician 16:55:17 FISCAL OFFICER CPT-47314 Fluzone Quadrivalent Intramuscular Suspe nsion 0.5 ML 16:55:17 FISCAL OFFICER CPT-26372 Renal Panel - LAB USE ONLY 17:39:20 CDT 201 10/31/07 CPT-93158 CBC - LAB USE ONLY 17:39:20 CDT CPT-63103 Venipuncture Draw Fee 17:39:20 CDT CPT-16113 Venipuncture Draw Fee 14:33:30 CDT CPT-80998 Renal Panel - LAB USE ONLY 14:33:30 CDT 201 10/31/07 CPT-21116 CBC - LAB USE ONLY 14:33:29 CDT CPT-73949 Venipuncture Draw Fee 14:50:21 FISCAL OFFICER CPT-59380 Immunization Single Admin 17:35:35 CDT 2014 CPT-53734 Fluzone Quadrivalent preservative free ( >=3yrs.) 17:35:35 CDT CPT-49965 Venipuncture Draw Fee 12:10:27 FISCAL OFFICER CPT-21378 Fluzone Quadrivalent Intramuscular Suspe nsion 0.5 ML 10:49:13 CDT CPT-62771 First Vx Component - Ix admi n via ID IM or jet inj without physician counseling 15:17:19 FISCAL OFFICER CPT-85773 Pneumovax 23 15:17:19 FISCAL OFFICER CPT-11729 Pneumovax 14:52:45 FISCAL OFFICER CPT-94044 Venipuncture Draw Fee 14:06:30 FISCAL OFFICER CPT-000 Give Appropriate Flu Vaccine 14:18:34 FISCAL OFFICER 2 CPT-54283 Administration single or combination vac cine inc oral 14:46:00 FISCAL OFFICER CPT-74389 Influenza split virus > age 3 14:46:00 FISCAL OFFICER CPT-OV Office Visit 19:13:16 CDT CPT-18214 Zostavax 18:41:56 CDT CPT-28639 Administration single or combination vac cine inc oral 12:56:39 CDT CPT-70901 Zoster Vaccine (Zostavax) 12:56:39 CDT 2012 CPT-34145 Venipuncture Draw Fee 10:58:57 CDT CPT-41323 Sono pelvis non OB uterus ovaries cervix 17:45:04 CDT CPT-75089 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
--- OUTSIDE RECORDS SUMMARY | 2019-10-27 12:19 | XMS REPORT | Clinical Summary ---
Author Author Admin, Elba Lance [employer] Address Unknown Phone Unavailable Allergies, Adverse Reactions, 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 SH[employer] F[employer]DER Benign neoplasm of colon PERIPHERAL NEUROPATHY 356.9 [...] 1 tab daily for HTN AMLODIPINE BESYLATE 68331361927 Active KENDALL Juarez Active SYNTHROID 0.1 MG TAB 1 tablet by mouth daily LE VOTHYROXINE SODIUM 09133783075 Active Shonna Parker APRN Active GLIPIZIDE 10 MG TAB take 2 tablets twice daily GLIPIZIDE 76173833688 Active Baltazar Childers MD Active SUCRALFATE 1 GM TABS 1 four times a day to coat the stomach 2015 SUCRALFATE 04275560634 No Longer Active Baltazar Childers MD Active PEN NEEDLES 31G X 6 MM MISC use 1 daily INSULIN PEN NEEDLE 39682126755 Active Gato Rae MD Active TOUJEO SOLOSTAR 300 UNIT/ML SC SOPN 10 units SC daily INSULIN GLARGINE 54415142328 No Longer Active [place] ARGUETA Active LANTUS SOLOSTAR 100 UNIT/ML SC SOPN 10 units SC daily INSULIN GLARGINE 48011541818 Active KENDALL Juarez Active NAPROXEN SODIUM 220 MG ORAL TABS 1 three times a day as needed 2 NAPROXEN SODIUM 69645134233 No Longer Active Baltazar Childers MD Active ATORVASTATIN CALCIUM 20 MG ORAL TABS Take 1 tab daily ATORVASTATIN CALCIUM 27904528461 Active KENDALL Juarez Active FUROSEMIDE 40 MG TABS Take one by mouth daily FUROSEMIDE 96063567786 Active Baltazar Childers MD Active LISINOPRIL 20 MG TABS Take one by mouth daily at bedtime LISINOPRIL 32680464505 No Longer Active Baltazar Childers MD Active ONETOUCH ULTRA BLUE STRP Test twice a day GLUCO SE BLOOD 18542294271 No Longer Active Baltazar Childers MD Active TRUEPLUS LANCETS 33G MISC Test twice a day LANCET S 44571281257 Active KENDALL Jaurez Active TRUEDRAW LANCING DEVICE MISC Test twice a day L ANCET DEVICES 64462834223 Active Baltazar Childers MD Active TRUETRACK TEST STRP Test twice a day GLUCOSE BLOO D 43518410906 Active KENDALL Juarez Active TRUETRACK BLOOD GLUCOSE W/DEVICE KIT Test twice a day BLOOD GLUCOSE MONITORING SUPPL 93093250133 Active Baltazar Childers MD Activ e HYDROCODONE-ACETAMINOPHEN 7.5-325 MG TABS Take 1 tab every 6-8 hour s PRN HYDROCODONE-ACETAMINOPHEN 08814408451 Active Baltazar Childers MD Active NORTRIPTYLINE HCL 50 MG CAPS 1 every night for neuropathy 4 NORTRIPTYLINE HCL 56223681113 Active Baltazar Childers MD Acti ve GABAPENTIN 300 MG CAPS 1 three times a day GABAPE NTIN 02414783630 Active Baltazar Childers MD Active GABAPENTIN 300 MG CAPS 1 po qd x 2 days, then 1 po BID x 2 d ays, then 1 po TID GABAPENTIN 45920608771 No Longer Active Baltazar silverman MD Active TRAMADOL HCL 50 MG TABS 1 twice a day as needed for pain TRAMADOL HCL 40629176731 Active Baltazar Childers MD Active NAPROXEN 500 MG TABS 1 tablet by mouth twice daily NAPROXEN 37521335825 No Longer Active Baltazar Childers MD Active PROAIR HFA 108 (90 BASE) MCG/ACT AERS 2 puffs four times a d ay as needed ALBUTEROL SULFATE 87655236491 Active Baltazar Childers MD Active DEPO-TESTOSTERONE 200 MG/ML OIL as directed RUFINO TOSTERONE CYPIONATE 60920074033 No Longer Active Baltazar Childers MD Active LIPITOR 20 MG TABS Take one by mouth daily in evening ATORVASTATIN CALCIUM 47478791978 No Longer Active Baltazar Childers MD Activ e CRESTOR 10 MG TABS 1 by mouth every day R OSUVASTATIN CALCIUM 97738008752 No Longer Active Baltazar Childers MD Activ e PHENTERMINE HCL 37.5 MG TABS Take one by mouth daily 2 PHENTERMINE HCL 08535900748 No Longer Active Baltazar Childers MD Activ e ROBAXIN-750 750 MG TABS Take one by mouth daily ME THOCARBAMOL 12155339786 Active Baltazar Childers MD Active TIZANIDINE HCL 4 MG TABS 1 daily as needed for muscle spasm 2011 TIZANIDINE HCL 82949781964 No Longer Active Dawna Salazar RN Active [id number] 50-325-40 MG TABS 1 four time s a day as needed for heacache [id number] 67772442887 Active KENDALL Juarez Active SUMATRIPTAN SUCCINATE 100 MG TABS 1 tablet by mouth at onset of migraine as needed SUMATRIPTAN SUCCINATE 80122908150 Active KENDALL Juarez Active LORATADINE 10 MG TABS Take one by mouth daily LORATADINE 90516820265 Active Beth KENDALL Carr Active OMEPRAZOLE 20 MG CPDR Take one by mouth daily OMEPRAZOLE 94385884791 Active Baltazar Childers MD Active HYDROXYZINE HCL 25 MG TABS Take one by mouth daily HYDROXYZINE HCL 59194309829 Active Baltazar Childers MD Active ALPRAZOLAM 1 MG TABS 1 tablet by mouth daily at bedtime for restles s leg ALPRAZOLAM 39284594383 Active Baltazar Childers MD Active METFORMIN HCL 1000 MG TABS Take one by mouth twice daily METFORMIN HCL 43413484023 Active Baltazar Childers MD Active NAPROXEN 500 MG TABS 1 tablet by mouth twice daily 201 07/27/22 NAPROXEN 500 MG TABS 437882 NAPROXEN Inactive PHENTERMINE HCL 37.5 MG TABS Take one by mouth daily 2 PHENTERMINE HCL 37.5 MG TABS 249001 PHENTERMINE HCL Inactive SUCRALFATE 1 GM TABS 1 four times a day to coat the stomach 2015 SUCRALFATE 1 GM TABS 169363 SUCRALFATE Inactive NAPROXEN SODIUM 220 MG ORAL TABS 1 three times a day as needed 2 NAPROXEN SODIUM 220 MG ORAL TABS 623860 NAPROXEN SODIUM Inactive TIZANIDINE HCL 4 MG TABS 1 daily as needed for muscle spasm 2011 TIZANIDINE HCL 4 MG TABS 029846 TIZANIDINE HCL Inactiv e GABAPENTIN 300 MG CAPS 1 po qd x 2 days, then 1 po BID x 2 d ays, then 1 po TID GABAPENTIN 300 MG CAPS 720510 GABAPENTIN Inact amie LIPITOR 20 MG TABS Take one by mouth daily in evening LIPITOR 20 MG TABS 473691 ATORVASTATIN CALCIUM Inactive ONETOUCH ULTRA BLUE STRP Test twice a day ONETOUCH ULTRA BLUE STRP GLUCOSE BLOOD Inactive CRESTOR 10 MG TABS 1 by mouth every day C RESTOR 10 MG TABS 859067 ROSUVASTATIN CALCIUM Inactive DEPO-TESTOSTERONE 200 MG/ML OIL as directed 8 DEPO-TESTOSTERONE 200 MG/ML OIL 530606 TESTOSTERONE CYPIONATE Inactive TOUJEO SOLOSTAR 300 UNIT/ML [...] Fluarix, Agriflu(>= 18 yo)) Fluzone (>3 yrs.) [[id number]] Influenza, seasonal, inject able Seasonal influenza vaccine, injectable, containing preservative, for > 3 years old (Afluria, FluLaval, Fluzone, Fluvirin, Fluarix, Agriflu(>= 18 yo)) Fluzone (>3 yrs.) [[id number]] Influenza, seasonal, inject able Vital Signs Date [...] C - Chemistry sodium, serum 143 mmol/L 522-175 0439/06/19 potassium, serum 5.9 mmol/L 3.5-5.2 chloride, serum 105 mmol/L 98-107 carbon dioxide, venous blood 30.2 mmol/L 21.0-32 .0 blood glucose 189 mg/dL 65-110 calcium, serum 9.7 mg/dL 8.5-10.1 urea nitrogen, blood 37 mg/dL 7-18 creatinine, serum 2.11 mg/dL 0.55-1.30 hemoglobin A1C, blood, as % of total hemoglobin 8.2 % 4.3-6.0 Lab Report: CBC, Renal Panel - Chemistry sodium, serum 142 mmol/L 501-407 4444/08/11 potassium, serum 4.8 mmol/L 3.5-5.2 chloride, serum [...] Panel - Chemistry sodium, serum 143 mmol/L 217-265 5855/12/19 carbon dioxide, venous blood 32.5 mmol/L 21.0-32 .0 potassium, serum 4.9 mmol/L 3.5-5.2 chloride, serum 101 mmol/L 98-107 blood glucose 129 mg/dL 65-110 urea nitrogen, blood 18 mg/dL 7-18 creatinine, serum 1.79 mg/dL 0.55-1.30 alanine aminotransferase (SGPT), serum 34 U/L 12-78 aspartate aminotransferase (SGOT), serum 26 U/L 15-37 calcium, serum 8.9 mg/dL 8.5-10.1 bilirubin, serum, total 0.30 mg/dL 0.00-1.00 cholesterol, serum 214 mg/dL 291-079 1619/12/19 triglyceride, serum, fasting 351 mg/dL 30-200 HDL [...] 4.3-6.0 Encounters Code Encounter Date Provider Facility CPT-15400 Level 4 Est. Patient 14:22:31 CDT Baltazar Childers MD [facility] CPT-96967 Level 4 Est. Patient 15:44:38 [facility] Level 4 Est. Patient 11:34:17 CDT Baltazar Childers MD [facility] CPT-93303 Level 3 Est. Patient 16:40:40 CDT Baltazar Childers MD [facility] CPT-26739 Level 4 Est. Patient 10:41:24 CDT Baltazar Childers MD [facility] CPT-40629 Level 4 Est. Patient 16:01:48 CDT Baltazar Childers MD [facility] CPT-96069 Level 4 Est. Patient 16:54:07 [employer] Baltazar Childers MD [facility] CPT-78684 Level 4 Est. Patient 15:42:12 CDT Baltazar Childers MD [facility] CPT-44642 Level 4 Est. Patient 11:29:55 CDT Baltazar Childers MD [facility] CPT-52528 Level 4 Est. Patient 14:15:19 CDT Baltazar Childers MD [facility] CPT-04061 Level 4 Est. Patient 12:20:13 CDT Baltazar Childers MD [facility] CPT-96601 Level 4 Est. Patient 14:52:45 BEL[employer] Baltazar Childers MD [facility] CPT-76591 Level 4 Est. Patient 14:18:34 BEL[employer]ER Baltazar Childers MD [facility] CPT-60113 Level 4 Est. Patient 15:18:29 CDT Baltazar Childers MD [facility] CPT-59839 Level 3 Est. Patient 12:45:34 CDT Baltazar Childers MD [facility] CPT-40868 Level 3 Est. Patient 10:10:11 CDT Baltazar Childers MD [facility] CPT-10572 Level 3 Est. Patient 14:07:50 CDT Baltazar Childers MD [facility] CPT-24178 Level 4 Est. Patient 12:26:10 BEL[employer] Baltazar Childers MD [facility] CPT-82640 Level 4 Est. Patient 14:45:38 CDT Baltazar Childers MD [facility] CPT-77996 Level 4 New Patient 12:30:48 CDT Baltazar hinton MD [facility] Procedures Code Procedure Name Date Entry Date Standard Desc ription CPT-15512 Venipuncture Draw Fee 12:04:12 CDT CPT-50402 Lipid - LAB USE ONLY 17:39:15 BELT PUNCHER 9 CPT-72567 HGBA1C - LAB USE ONLY 17:39:15 [employer] CPT-44523 CMP - LAB USE ONLY 17:39:14 [employer] CPT-05730 Venipuncture Draw Fee 17:39:14 BEL[employer] CPT-82954 First Vx - Ix admin via ID I M or jet injects without counseling by physician 16:55:17 BELT P[employer]CHER CPT-15836 Fluzone Quadrivalent Intramuscular Suspe nsion 0.5 ML 16:55:17 BELT [employer]CH[employer] CPT-19478 Renal Panel - LAB USE ONLY 17:39:20 CDT 201 10/31/07 CPT-77574 CBC - LAB USE ONLY 17:39:20 CDT CPT-80986 Venipuncture Draw Fee 17:39:20 CDT CPT-52410 Venipuncture Draw Fee 14:33:30 CDT CPT-63088 Renal Panel - LAB USE ONLY 14:33:30 CDT 201 10/31/07 CPT-64605 CBC - LAB USE ONLY 14:33:29 CDT CPT-80310 Venipuncture Draw Fee 14:50:21 BEL[employer] CPT-28534 Immunization Single Admin 17:35:35 CDT 2014 CPT-84488 Fluzone Quadrivalent preservative free ( >=3yrs.) 17:35:35 CDT CPT-77831 Venipuncture Draw Fee 12:10:27 BELT P[employer]CHER CPT-02988 Fluzone Quadrivalent Intramuscular Suspe nsion 0.5 ML 10:49:13 CDT CPT-14093 First Vx Component - Ix admi n via ID IM or jet inj without physician counseling 15:17:19 BELT PUNCHER CPT-92089 Pneumovax 23 15:17:19 BELT PUNCHER CPT-69395 Pneumovax 14:52:45 BELT P[employer]CHER CPT-56695 Venipuncture Draw Fee 14:06:30 BEL[employer]CHER CPT-000 Give Appropriate Flu Vaccine 14:18:34 BELT PUNCHER 2 CPT-86143 Administration single or combination vac cine inc oral 14:46:00 BELT P[employer]CHER CPT-87414 Influenza split virus > age 3 14:46:00 BELT PUNCHER CPT-OV Office Visit 19:13:16 CDT CPT-65659 Zostavax 18:41:56 CDT CPT-61669 Administration single or combination vac cine inc oral 12:56:39 CDT CPT-31143 Zoster Vaccine (Zostavax) 12:56:39 CDT 2012 CPT-61803 Venipuncture Draw Fee 10:58:57 CDT CPT-44322 Sono pelvis non OB uterus ovaries cervix 17:45:04 CDT CPT-49013 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
--- OUTSIDE RECORDS SUMMARY | 2019-10-27 12:19 | XMS REPORT | Clinical Summary ---
Author Author Abhishek, Elba Lance [facility] Address Unknown Phone Unavailable Allergies, Adverse 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 [employer] Benign neoplasm of colon PERIPHERAL NEUROPATHY 356.9 [...] y atherosclerosis of unspecified type of vessel, [place] or graft OTH NONSPC ABN FINDNG RAD&OTH [...] MISC Test twice a day LANCET S 21541928456 Active Baltazar Childers MD Active TRUEDRAW LANCING DEVICE MISC Test twice a day L ANCET DEVICES 15440478625 Active Baltazar Childers MD Active TRUETRACK TEST STRP Test twice a day GLUCOSE BLOO D 55308542746 Active Baltazar Childers MD Active TRUETRACK BLOOD GLUCOSE W/DEVICE KIT Test twice a day BLOOD GLUCOSE MONITORING SUPPL 50043452426 Active Bella Suarez APRN Active HYDROCODONE-ACETAMINOPHEN 7.5-325 MG TABS Take 1 tab every 6-8 hour s PRN HYDROCODONE-ACETAMINOPHEN 73928042660 Active Baltazar Childers MD Active NORTRIPTYLINE HCL 50 MG CAPS 1 every night for neuropathy 4 NORTRIPTYLINE HCL 50735474008 Active Bella Suarez APRN Active GABAPENTIN 300 MG CAPS 1 three times a day GABAPE NTIN 26065627142 Active Baltazar Childers MD Active GABAPENTIN 300 MG CAPS 1 po qd x 2 days, then 1 po BID x 2 d ays, then 1 po TID GABAPENTIN 11857360305 No Longer Active Baltazar silverman MD Active TRAMADOL HCL 50 MG TABS 1 twice a day as needed for pain TRAMADOL HCL 68303668249 Active Baltazar Childers MD Active NAPROXEN 500 MG TABS 1 tablet by mouth twice daily NAPROXEN 86435202352 No Longer Active Baltazar Childers MD Active PROAIR HFA 108 (90 BASE) MCG/ACT AERS 2 puffs four times a d ay as needed ALBUTEROL SULFATE 42238192342 Active Baltazar Childers MD Active DEPO-TESTOSTERONE 200 MG/ML OIL as directed RUFINO TOSTERONE CYPIONATE 58257126638 No Longer Active Baltazar Childers MD Active LIPITOR 20 MG TABS Take one by mouth daily in evening ATORVASTATIN CALCIUM 58511596765 No Longer Active Baltazar Childers MD Activ e CRESTOR 10 MG TABS 1 by mouth every day R OSUVASTATIN CALCIUM 75916553043 No Longer Active Baltazar Childers MD Activ e PHENTERMINE HCL 37.5 MG TABS Take one by mouth daily 2 PHENTERMINE HCL 98578573808 No Longer Active Baltazar Childers MD Activ e ROBAXIN-750 750 MG TABS Take one by mouth daily ME THOCARBAMOL 99071071791 Active Baltazar Childers MD Active TIZANIDINE HCL 4 MG TABS 1 daily as needed for muscle spasm 2011 TIZANIDINE HCL 14924321185 No Longer Active Dawna Salazar RN Active Good [employer] MediaUCH ULTRA BLUE STRP Test twice a day GLUCO SE BLOOD 36197606279 Active Baltazar Childers MD Active [id number] 50-325-40 MG TABS 1 four time s a day as needed for heacache [id number] 52834783496 Active Baltazar Childers MD Active SUMATRIPTAN SUCCINATE 100 MG TABS 1 tablet by mouth at onset of migraine as needed SUMATRIPTAN SUCCINATE 29477106138 Active Baltazar barron MD Active LORATADINE 10 MG TABS Take one by mouth daily LORATADINE 51414391489 Active Baltazar Childers MD Active FUROSEMIDE 40 MG TABS Take one by mouth daily FUROSEMIDE 78337841788 Active Baltazar Childers MD Active LISINOPRIL 20 MG TABS Take one by mouth daily at bedtime LISINOPRIL 56138877752 Active Bella Suarez APRN Active OMEPRAZOLE 20 MG CPDR Take one by mouth daily OMEPRAZOLE 36256695388 Active Baltazar Childers MD Active HYDROXYZINE HCL 25 MG TABS Take one by mouth daily HYDROXYZINE HCL 66784085958 Active Baltazar Childers MD Active GLIPIZIDE 10 MG TABS 1 tablet by mouth twice daily GLIPIZIDE 79141202758 Active Baltazar Childers MD Active ALPRAZOLAM 1 MG TABS 1 tablet by mouth daily at bedtime for restles s leg ALPRAZOLAM 71390115671 Active Baltazar Childers MD Active METFORMIN HCL 1000 MG TABS Take one by mouth twice daily METFORMIN HCL 33318994562 Active Bella Suarez APRN Active TIZANIDINE HCL 4 MG TABS 1 daily as needed for muscle spasm 2011 TIZANIDINE HCL 4 MG TABS 725163 TIZANIDINE HCL Inactiv e PHENTERMINE HCL 37.5 MG TABS Take one by mouth daily 2 PHENTERMINE HCL 37.5 MG TABS 314246 PHENTERMINE HCL Inactive CRESTOR 10 MG TABS 1 by mouth every day C RESTOR 10 MG TABS ROSUVASTATIN CALCIUM Inactive LIPITOR 20 MG TABS Take one by mouth daily in evening LIPITOR 20 MG TABS 058072 ATORVASTATIN CALCIUM Inactive DEPO-TESTOSTERONE 200 MG/ML OIL as directed 8 DEPO-TESTOSTERONE 200 MG/ML OIL 726614 TESTOSTERONE CYPIONATE Inactive NAPROXEN 500 MG TABS 1 tablet by mouth twice daily 201 07/27/22 NAPROXEN 500 MG TABS 185336 NAPROXEN Inactive GABAPENTIN 300 MG CAPS 1 po qd x 2 days, then 1 po BID x 2 d ays, then 1 po TID GABAPENTIN 300 MG CAPS 767320 GABAPENTIN Inact amie Immunizations Vaccine Administration Date Value Standard Floyd cription pneumococcal immunization administered Pneumovax 23 [CVX33] pneumococcal polysaccharide vaccine, 23 valent Seasonal influenza vaccine, injectable, containing preservative, for > 3 years old (Afluria, FluLaval, Fluzone, Fluvirin, Fluarix, Agriflu(>= 18 yo)) Fluzone (>3 yrs.) [[id number]] Influenza, seasonal, inject able Seasonal influenza vaccine, injectable, containing preservative, for > 3 years old (Afluria, FluLaval, Fluzone, Fluvirin, Fluarix, Agriflu(>= 18 yo)) Fluzone (>3 yrs.) [OQN321] Influenza, seasonal, inject able Vital Signs Date [...] Panel - Chemistry sodium, serum 139 mmol/L 975-074 3627/01/20 potassium, serum 5.3 mmol/L 3.5-5.2 chloride, serum [...] mg/g mg/g{creat} 0-29 cholesterol, serum 319 mg/dL 910-611 0527/08/21 triglyceride, serum, fasting 546 mg/dL 30-200 HDL cholesterol, serum 39 mg/dL 32-96 LDL cholesterol, serum 167.00 mg/dL 5.00-130.00 hemoglobin A1C, blood, as % of total hemoglobin 7.7 % 4.3-6.0 sodium, serum 138 mmol/L 949-550 2520/08/21 potassium, serum 4.3 mmol/L 3.5-5.2 chloride, serum [...] 0-19 Encounters Code Encounter Date Provider Facility CPT-20163 Level 4 Est. Patient 14:15:19 CDT Baltazar Childers MD [facility] CPT-70162 Level 4 Est. Patient 12:20:13 CDT Baltazar Childers MD [facility] CPT-14821 Level 4 Est. Patient 14:52:45 [employer] Baltazar Childers MD [facility] CPT-60921 Level 4 Est. Patient 14:18:34 [employer] Baltazar Childers MD [facility] CPT-22088 Level 4 Est. Patient 15:18:29 CDT Baltazar Childers MD [facility] CPT-97366 Level 3 Est. Patient 12:45:34 CDT Baltazar Childers MD [facility] CPT-54234 Level 3 Est. Patient 10:10:11 CDT Baltazar Childers MD [facility] CPT-56671 Level 3 Est. Patient 14:07:50 CDT Baltazar Childers MD [facility] CPT-39260 Level 4 Est. Patient 12:26:10 [employer] Baltazar Childers MD [facility] CPT-81283 Level 4 Est. Patient 14:45:38 CDT Baltazar Childers MD [facility] CPT-12666 Level 4 New Patient 12:30:48 CDT Baltazar hinton MD [facility] Procedures Code Procedure Name Date Entry Date Standard Desc ription CPT-52686 Venipuncture Draw Fee 12:10:27 [employer] CPT-27670 Fluzone Quadrivalent Intramuscular Suspe nsion 0.5 ML 10:49:13 CDT CPT-89985 First Vx Component - Ix admi n via ID IM or jet inj without physician counseling 15:17:19 [employer] CPT-54752 Pneumovax 23 15:17:19 [employer] CPT-22077 Pneumovax 14:52:45 [employer] CPT-73998 Venipuncture Draw Fee 14:06:30 [employer] CPT-000 Give Appropriate Flu Vaccine 14:18:34 [employer] 2 CPT-97769 Administration single or combination vac cine inc oral 14:46:00 [employer] CPT-73837 Influenza split virus > age 3 14:46:00 [employer] CPT-OV Office Visit 19:13:16 CDT CPT-78165 Zostavax 18:41:56 CDT CPT-99170 Administration single or combination vac cine inc oral 12:56:39 CDT CPT-71650 Zoster Vaccine (Zostavax) 12:56:39 CDT 2012 CPT-13801 Venipuncture Draw Fee 10:58:57 CDT CPT-90778 Sono pelvis non OB uterus ovaries cervix 17:45:04 CDT CPT-69489 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
[2019-10-27 12:20] LABS: HYPOCHROMASIA SLIGHT; LYMPHOCYTES % (MANUAL) 9 %; MONOCYTES % (MANUAL) 5 %; NEUTROPHILS % (MANUAL) 86 %
--- OUTSIDE RECORDS SUMMARY | 2019-10-27 12:20 | XMS REPORT | Clinical Summary ---
Author Author Admin, Elba Lance 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 Benign neoplasm of colon PERIPHERAL NEUROPATHY 356.9 [...] ronary atherosclerosis of unspecified type of vessel, habematolel or graft OTH NONSPC ABN FINDNG RAD&OTH [...] 1 tab daily for HTN AMLODIPINE BESYLATE 39908109560 Active KENDALL uJarez Active SYNTHROID 0.1 MG TAB 1 tablet by mouth daily LE VOTHYROXINE SODIUM 67161408681 Active Shonna Parker APRN Active GLIPIZIDE 10 MG TAB take 2 tablets twice daily GLIPIZIDE 98247369095 Active Baltazar Childers MD Active SUCRALFATE 1 GM TABS 1 four times a day to coat the stomach 2015 SUCRALFATE 72501220267 No Longer Active Baltazar Childers MD Active PEN NEEDLES 31G X 6 MM MISC use 1 daily INSULIN PEN NEEDLE 99656032271 Active Gato Rae MD Active TOUJEO SOLOSTAR 300 UNIT/ML SC SOPN 10 units SC daily INSULIN GLARGINE 03619895184 No Longer Active Martitatung ARGUETA Active LANTUS SOLOSTAR 100 UNIT/ML SC SOPN 10 units SC daily INSULIN GLARGINE 87872798268 Active KENDALL Juarez Active NAPROXEN SODIUM 220 MG ORAL TABS 1 three times a day as needed 2 NAPROXEN SODIUM 97013626983 No Longer Active Baltazar Childers MD Active ATORVASTATIN CALCIUM 20 MG ORAL TABS Take 1 tab daily ATORVASTATIN CALCIUM 12046177373 Active KENDALL Juarez Active FUROSEMIDE 40 MG TABS Take one by mouth daily FUROSEMIDE 58870039601 Active Baltazar Childers MD Active LISINOPRIL 20 MG TABS Take one by mouth daily at bedtime LISINOPRIL 06670530010 No Longer Active Baltazar Childers MD Active ONETOUCH ULTRA BLUE STRP Test twice a day GLUCO SE BLOOD 26475940421 No Longer Active Baltazar Childers MD Active TRUEPLUS LANCETS 33G MISC Test twice a day LANCET S 20594252440 Active KENDALL Juarez Active TRUEDRAW LANCING DEVICE MISC Test twice a day L ANCET DEVICES 78214061401 Active Baltazar Childers MD Active TRUETRACK TEST STRP Test twice a day GLUCOSE BLOO D 46029088160 Active KENDALL Juarez Active TRUETRACK BLOOD GLUCOSE W/DEVICE KIT Test twice a day BLOOD GLUCOSE MONITORING SUPPL 77846491044 Active Baltazar Childers MD Activ e HYDROCODONE-ACETAMINOPHEN 7.5-325 MG TABS Take 1 tab every 6-8 hour s PRN HYDROCODONE-ACETAMINOPHEN 16807361299 Active Baltazar Childers MD Active NORTRIPTYLINE HCL 50 MG CAPS 1 every night for neuropathy 4 NORTRIPTYLINE HCL 01571570564 Active Baltazar Childers MD Acti ve GABAPENTIN 300 MG CAPS 1 three times a day GABAPE NTIN 37119714651 Active Baltazar Childers MD Active GABAPENTIN 300 MG CAPS 1 po qd x 2 days, then 1 po BID x 2 d ays, then 1 po TID GABAPENTIN 53925921154 No Longer Active Baltazar silverman MD Active TRAMADOL HCL 50 MG TABS 1 twice a day as needed for pain TRAMADOL HCL 16522333686 Active Baltazar Childers MD Active NAPROXEN 500 MG TABS 1 tablet by mouth twice daily NAPROXEN 67338965725 No Longer Active Baltazar Childers MD Active PROAIR HFA 108 (90 BASE) MCG/ACT AERS 2 puffs four times a d ay as needed ALBUTEROL SULFATE 24118262246 Active Baltazar Childers MD Active DEPO-TESTOSTERONE 200 MG/ML OIL as directed RUFINO TOSTERONE CYPIONATE 20638499411 No Longer Active Baltazar Childers MD Active LIPITOR 20 MG TABS Take one by mouth daily in evening ATORVASTATIN CALCIUM 93742278483 No Longer Active Baltazar Childers MD Activ e CRESTOR 10 MG TABS 1 by mouth every day R OSUVASTATIN CALCIUM 52292580630 No Longer Active Baltazar Childers MD Activ e PHENTERMINE HCL 37.5 MG TABS Take one by mouth daily 2 PHENTERMINE HCL 11755751039 No Longer Active Baltazar Childers MD Activ e ROBAXIN-750 750 MG TABS Take one by mouth daily ME THOCARBAMOL 06647125224 Active Baltazar Childers MD Active TIZANIDINE HCL 4 MG TABS 1 daily as needed for muscle spasm 2011 TIZANIDINE HCL 30685368244 No Longer Active Dawna Salazar RN Active [id number] 50-325-40 MG TABS 1 four time s a day as needed for heacache [id number] 42040735690 Active KENDALL Juarez Active SUMATRIPTAN SUCCINATE 100 MG TABS 1 tablet by mouth at onset of migraine as needed SUMATRIPTAN SUCCINATE 80172954007 Active KENDALL Juarez Active LORATADINE 10 MG TABS Take one by mouth daily LORATADINE 33555286127 Active Beth KENDALL Carr Active OMEPRAZOLE 20 MG CPDR Take one by mouth daily OMEPRAZOLE 46997944911 Active Baltazar Childers MD Active HYDROXYZINE HCL 25 MG TABS Take one by mouth daily HYDROXYZINE HCL 82081222694 Active Baltazar Childers MD Active ALPRAZOLAM 1 MG TABS 1 tablet by mouth daily at bedtime for restles s leg ALPRAZOLAM 64379840833 Active Baltazar Childers MD Active METFORMIN HCL 1000 MG TABS Take one by mouth twice daily METFORMIN HCL 59166819425 Active Baltazar Childers MD Active TIZANIDINE HCL 4 MG TABS 1 daily as needed for muscle spasm 2011 TIZANIDINE HCL 4 MG TABS 134620 TIZANIDINE HCL Inactiv e PHENTERMINE HCL 37.5 MG TABS Take one by mouth daily 2 PHENTERMINE HCL 37.5 MG TABS 776387 PHENTERMINE HCL Inactive CRESTOR 10 MG TABS 1 by mouth every day C RESTOR 10 MG TABS 114070 ROSUVASTATIN CALCIUM Inactive LIPITOR 20 MG TABS Take one by mouth daily in evening LIPITOR 20 MG TABS 734061 ATORVASTATIN CALCIUM Inactive DEPO-TESTOSTERONE 200 MG/ML OIL as directed 8 DEPO-TESTOSTERONE 200 MG/ML OIL 888888 TESTOSTERONE CYPIONATE Inactive NAPROXEN 500 MG TABS 1 tablet by mouth twice daily 201 07/27/22 NAPROXEN 500 MG TABS 395072 NAPROXEN Inactive GABAPENTIN 300 MG CAPS 1 po qd x 2 days, then 1 po BID x 2 d ays, then 1 po TID GABAPENTIN 300 MG CAPS 651885 GABAPENTIN Inact amie ONETOUCH ULTRA BLUE STRP Test twice a day ONETOUCH ULTRA BLUE STRP GLUCOSE BLOOD Inactive NAPROXEN SODIUM 220 MG ORAL TABS 1 three times a day as needed 2 NAPROXEN SODIUM 220 MG ORAL TABS 108990 NAPROXEN SODIUM Inactive TOUJEO SOLOSTAR 300 UNIT/ML SC SOPN 10 units SC daily TOUJEO SOLOSTAR 300 UNIT/ML SC SOPN INSULIN GLARGINE Inac tive SUCRALFATE 1 GM TABS 1 four times a day to coat the stomach 2015 SUCRALFATE 1 GM TABS 626070 SUCRALFATE Inactive Immunizations Vaccine Administration Date Value Standard Floyd cription pneumococcal immunization administered Pneumovax 23 [CVX33] pneumococcal polysaccharide vaccine, 23 valent Seasonal influenza vaccine, injectable, containing preservative, for > 3 years old (Afluria, FluLaval, Fluzone, Fluvirin, Fluarix, Agriflu(>= 18 yo)) Fluzone (>3 yrs.) [[id number]] Influenza, seasonal, inject able Seasonal influenza vaccine, injectable, containing preservative, for > 3 years old (Afluria, FluLaval, Fluzone, Fluvirin, Fluarix, Agriflu(>= 18 yo)) Fluzone (>3 yrs.) [[id number]] Influenza, seasonal, inject able Vital Signs Date [...] C - Chemistry sodium, serum 143 mmol/L 094-627 1113/06/19 potassium, serum 5.9 mmol/L 3.5-5.2 chloride, serum 105 mmol/L 98-107 carbon dioxide, venous blood 30.2 mmol/L 21.0-32 .0 blood glucose 189 mg/dL 65-110 calcium, serum 9.7 mg/dL 8.5-10.1 urea nitrogen, blood 37 mg/dL 7-18 creatinine, serum 2.11 mg/dL 0.55-1.30 hemoglobin A1C, blood, as % of total hemoglobin 8.2 % 4.3-6.0 Lab Report: CBC, Renal Panel - Chemistry sodium, serum 142 mmol/L 465-829 6070/08/11 potassium, serum 4.8 mmol/L 3.5-5.2 chloride, serum [...] Panel - Chemistry sodium, serum 143 mmol/L 038-434 7301/12/19 carbon dioxide, venous blood 32.5 mmol/L 21.0-32 .0 potassium, serum 4.9 mmol/L 3.5-5.2 chloride, serum 101 mmol/L 98-107 blood glucose 129 mg/dL 65-110 urea nitrogen, blood 18 mg/dL 7-18 creatinine, serum 1.79 mg/dL 0.55-1.30 alanine aminotransferase (SGPT), serum 34 U/L 12-78 aspartate aminotransferase (SGOT), serum 26 U/L 15-37 calcium, serum 8.9 mg/dL 8.5-10.1 bilirubin, serum, total 0.30 mg/dL 0.00-1.00 cholesterol, serum 214 mg/dL 842-761 8439/12/19 triglyceride, serum, fasting 351 mg/dL 30-200 HDL [...] 4.3-6.0 Encounters Code Encounter Date Provider Facility CPT-13991 Level 4 Est. Patient 14:22:31 CDT Baltazar Childers MD [facility] CPT-73067 Level 4 Est. Patient 15:44:38 [facility] Level 4 Est. Patient 11:34:17 CDT Baltazar Childers MD [facility] CPT-38210 Level 3 Est. Patient 16:40:40 CDT Baltazar Childers MD [facility] CPT-29881 Level 4 Est. Patient 10:41:24 CDT Baltazar Childers MD [facility] CPT-91153 Level 4 Est. Patient 16:01:48 CDT Baltazar Childers MD [facility] CPT-85753 Level 4 Est. Patient 16:54:07 DIRECTOR ALUMNI RELATIONS Baltazar Childers MD [facility] CPT-80100 Level 4 Est. Patient 15:42:12 CDT Baltazar Childers MD [facility] CPT-85168 Level 4 Est. Patient 11:29:55 CDT Baltazar Childers MD [facility] CPT-16691 Level 4 Est. Patient 14:15:19 CDT Baltazar Childers MD [facility] CPT-38085 Level 4 Est. Patient 12:20:13 CDT Baltazar Childers MD [facility] CPT-02968 Level 4 Est. Patient 14:52:45 DIRECTOR ALUMNI RELATIONS Baltazar Childers MD [facility] CPT-41690 Level 4 Est. Patient 14:18:34 DIRECTOR ALUMNI RELATIONS Baltazar Childers MD [facility] CPT-66626 Level 4 Est. Patient 15:18:29 CDT Baltazar Childers MD [facility] CPT-14484 Level 3 Est. Patient 12:45:34 CDT Baltazar Childers MD [facility] CPT-25610 Level 3 Est. Patient 10:10:11 CDT Baltazar Childers MD [facility] CPT-26950 Level 3 Est. Patient 14:07:50 CDT Baltazar Childers MD [facility] CPT-61378 Level 4 Est. Patient 12:26:10 DIRECTOR ALUMNI RELATIONS Baltazar Childers MD [facility] CPT-07692 Level 4 Est. Patient 14:45:38 CDT Baltazar Childers MD [facility] CPT-77237 Level 4 New Patient 12:30:48 CDT Baltazar hinton MD [facility] Procedures Code Procedure Name Date Entry Date Standard Desc ription CPT-51577 Venipuncture Draw Fee 12:04:12 CDT CPT-57969 Lipid - LAB USE ONLY 17:39:15 DIRECTOR [employer]NI RELATIONS 9 CPT-24182 HGBA1C - LAB USE ONLY 17:39:15 DIRECTOR [employer]NI RELATIONS CPT-18815 CMP - LAB USE ONLY 17:39:14 DIRECTOR AL[employer] RELATIONS CPT-00752 Venipuncture Draw Fee 17:39:14 DIRECTOR [employer] RELATIONS CPT-74175 First Vx - Ix admin via ID I M or jet injects without counseling by physician 16:55:17 DIRECTOR ALUMNI RELATIONS CPT-26713 Fluzone Quadrivalent Intramuscular Suspe nsion 0.5 ML 16:55:17 DIRECTOR ALUMNI RELATIONS CPT-11836 Renal Panel - LAB USE ONLY 17:39:20 CDT 201 10/31/07 CPT-61208 CBC - LAB USE ONLY 17:39:20 CDT CPT-62114 Venipuncture Draw Fee 17:39:20 CDT CPT-15012 Venipuncture Draw Fee 14:33:30 CDT CPT-28738 Renal Panel - LAB USE ONLY 14:33:30 CDT 201 10/31/07 CPT-18574 CBC - LAB USE ONLY 14:33:29 CDT CPT-23442 Venipuncture Draw Fee 14:50:21 DIRECTOR [employer] RELATIONS CPT-96507 Immunization Single Admin 17:35:35 CDT 2014 CPT-93213 Fluzone Quadrivalent preservative free ( >=3yrs.) 17:35:35 CDT CPT-19952 Venipuncture Draw Fee 12:10:27 DIRECTOR ALUMNI RELATIONS CPT-26097 Fluzone Quadrivalent Intramuscular Suspe nsion 0.5 ML 10:49:13 CDT CPT-13520 First Vx Component - Ix admi n via ID IM or jet inj without physician counseling 15:17:19 DIRECTOR ALUMNI RELATIONS CPT-62880 Pneumovax 23 15:17:19 DIRECTOR ALUMNI RELATIONS CPT-55377 Pneumovax 14:52:45 DIRECTOR ALUMNI RELATIONS CPT-43868 Venipuncture Draw Fee 14:06:30 DIRECTOR AL[employer]NI RELATIONS CPT-000 Give Appropriate Flu Vaccine 14:18:34 DIRECTOR ALUMNI RELATIONS 2 CPT-80916 Administration single or combination vac cine inc oral 14:46:00 DIRECTOR ALUMNI RELATIONS CPT-37603 Influenza split virus > age 3 14:46:00 DIRECTOR ALUMNI RELATIONS CPT-OV Office Visit 19:13:16 CDT CPT-16370 Zostavax 18:41:56 CDT CPT-59117 Administration single or combination vac cine inc oral 12:56:39 CDT CPT-02057 Zoster Vaccine (Zostavax) 12:56:39 CDT 2012 CPT-17740 Venipuncture Draw Fee 10:58:57 CDT CPT-51486 Sono pelvis non OB uterus ovaries cervix 17:45:04 CDT CPT-56403 Sono retroperitoneal complete kidneys an d bladder 17:14:36 CDT CPT-OV Office Visit 14:59:38 DIRECTOR ALUMNI RELATIONS CPT-J1070 Depo Testosterone 100 mg 14:50:13 CDT 03/05 CPT-81838 Abx/Therapy Injection 14:50:13 CDT CPT-33752 Administration single or combination vac cine inc oral 14:34:43 CDT CPT-49905 Influenza split virus > age 3 14:34:43 CDT CPT-J1070 Depo Testosterone 100 mg 17:37:13 CDT 01/11 CPT-06404 Abx/Therapy Injection 17:37:13 CDT CPT-78023 Venipuncture Draw Fee 16:30:13 CDT CPT-71407 Venipuncture Draw Fee 16:29:43 CDT CPT-J1070 Depo Testosterone 100 mg 14:45:38 CDT 01/11
--- OUTSIDE RECORDS SUMMARY | 2019-10-27 12:20 | XMS REPORT | Clinical Summary ---
Author Author Admin, Elba Lance MichelleAnturis [facility] Address Unknown Phone Unavailable Allergies, Adverse 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 QUILT STUFFER Benign neoplasm of colon PERIPHERAL NEUROPATHY 356.9 [...] atherosclerosis of unspecified type of vessel, [place] or graft OTH NONSPC ABN FINDNG RAD&OTH [...] tablet by mouth daily LE VOTHYROXINE SODIUM 39359973485 Active Carina Tucker LPN Active GLIPIZIDE 10 MG TAB take 2 tablets twice daily GLIPIZIDE 10129502044 Active Baltazar Childers MD Active SUCRALFATE 1 GM TABS 1 four times a day to coat the stomach 2015 SUCRALFATE 54646209721 No Longer Active Baltazar Childers MD Active PEN NEEDLES 31G X 6 MM MISC use 1 daily INSULIN PEN NEEDLE 52095165061 Active Bella Suarez QUILT STUFFER Active APARNAUONOFRE SOLOSTAR 300 UNIT/ML SC SOPN 10 units SC daily INSULIN GLARGINE 95293654861 No Longer Active Martita Godinez RMA Active LANT SOLOSTAR 100 UNIT/ML SC SOPN 10 units SC daily INSULIN GLARGINE 80137784277 Active Baltazar Childers MD Active NAPROXEN SODIUM 220 MG ORAL TABS 1 three times a day as needed 2 NAPROXEN SODIUM 81428284625 No Longer Active Baltazar Childers MD Active ATORVASTATIN CALCIUM 20 MG ORAL TABS Take 1 tab daily ATORVASTATIN CALCIUM 03822360758 Active Baltazar Childers MD Active FUROSEMIDE 40 MG TABS Take one by mouth daily FUROSEMIDE 60505526872 Active Baltazar Childers MD Active LISINOPRIL 20 MG TABS Take one by mouth daily at bedtime LISINOPRIL 75068186130 Active Baltazar Childers MD Active ONETOUCH ULTRA BLUE STRP Test twice a day GLUCO SE BLOOD 88514061229 No Longer Active Baltazar Childers MD Active TRUEPLUS LANCETS 33G MISC Test twice a day LANCET S 14901652897 Active KENDALL Juarez Active TRUEDRAW LANCING DEVICE MISC Test twice a day L ANCET DEVICES 46124341455 Active Baltazar Childers MD Active TRUETRACK TEST STRP Test twice a day GLUCOSE BLOO D 78922670936 Active KENDALL Juarez Active TRUEJONI BLOOD GLUCOSE W/DEVICE KIT Test twice a day BLOOD GLUCOSE MONITORING SUPPL 53349205672 Active Baltazar Childers MD Activ e HYDROCODONE-ACETAMINOPHEN 7.5-325 MG TABS Take 1 tab every 6-8 hour s PRN HYDROCODONE-ACETAMINOPHEN 68839658534 Active Baltazar Childers MD Active NORTRIPTYLINE HCL 50 MG CAPS 1 every night for neuropathy 4 NORTRIPTYLINE HCL 16416685636 Active Baltazar Childers MD Acti ve GABAPENTIN 300 MG CAPS 1 three times a day GABAPE NTIN 42013397542 Active Baltazar Childers MD Active GABAPENTIN 300 MG CAPS 1 po qd x 2 days, then 1 po BID x 2 d ays, then 1 po TID GABAPENTIN 49912528228 No Longer Active Baltazar silverman MD Active TRAMADOL HCL 50 MG TABS 1 twice a day as needed for pain TRAMADOL HCL 61307579162 Active Baltazar Childers MD Active NAPROXEN 500 MG TABS 1 tablet by mouth twice daily NAPROXEN 99855832296 No Longer Active Baltazar Childers MD Active PROAIR HFA 108 (90 BASE) MCG/ACT AERS 2 puffs four times a d ay as needed ALBUTEROL SULFATE 92531015757 Active Baltazar Childers MD Active DEPO-TESTOSTERONE 200 MG/ML OIL as directed RUFINO TOSTERONE CYPIONATE 93473527966 No Longer Active Baltazar Childers MD Active LIPITOR 20 MG TABS Take one by mouth daily in evening ATORVASTATIN CALCIUM 01476277848 No Longer Active Baltazar Childers MD Activ e CRESTOR 10 MG TABS 1 by mouth every day R OSUVASTATIN CALCIUM 50174910206 No Longer Active Baltazar Childers MD Activ e PHENTERMINE HCL 37.5 MG TABS Take one by mouth daily 2 PHENTERMINE HCL 07677409344 No Longer Active Baltazar Childers MD Activ e ROBAXIN-750 750 MG TABS Take one by mouth daily ME THOCARBAMOL 53662004175 Active Baltazar Childers MD Active TIZANIDINE HCL 4 MG TABS 1 daily as needed for muscle spasm 2011 TIZANIDINE HCL 46102026425 No Longer Active Dawna Salazar RN Active [id number]-[id number]-BMBWTRNO 50-325-40 MG TABS 1 four time s a day as needed for heacache ARPPQHCVAT-[id number] 74532470816 Active Baltazar Childers MD Active SUMATRIPTAN SUCCINATE 100 MG TABS 1 tablet by mouth at onset of migraine as needed SUMATRIPTAN SUCCINATE 54863721735 Active Shonna Cram er QUILT STUFFER Active LORATADINE 10 MG TABS Take one by mouth daily LORATADINE 26092366137 Active KENDALL Juarez Active OMEPRAZOLE 20 MG CPDR Take one by mouth daily OMEPRAZOLE 92938287226 Active Baltazar Childers MD Active HYDROXYZINE HCL 25 MG TABS Take one by mouth daily HYDROXYZINE HCL 50651275582 Active Baltazar Childers MD Active ALPRAZOLAM 1 MG TABS 1 tablet by mouth daily at bedtime for restles s leg ALPRAZOLAM 16374162700 Active Baltazar Childers MD Active METFORMIN HCL 1000 MG TABS Take one by mouth twice daily METFORMIN HCL 83588461210 Active Baltazar Childers MD Active TIZANIDINE HCL 4 MG TABS 1 daily as needed for muscle spasm 2011 TIZANIDINE HCL 4 MG TABS 795529 TIZANIDINE HCL Inactiv e PHENTERMINE HCL 37.5 MG TABS Take one by mouth daily 2 PHENTERMINE HCL 37.5 MG TABS 840676 PHENTERMINE HCL Inactive CRESTOR 10 MG TABS 1 by mouth every day C RESTOR 10 MG TABS 585359 ROSUVASTATIN CALCIUM Inactive LIPITOR 20 MG TABS Take one by mouth daily in evening LIPITOR 20 MG TABS 395131 ATORVASTATIN CALCIUM Inactive DEPO-TESTOSTERONE 200 MG/ML OIL as directed 8 DEPO-TESTOSTERONE 200 MG/ML OIL 557512 TESTOSTERONE CYPIONATE Inactive NAPROXEN 500 MG TABS 1 tablet by mouth twice daily 201 07/27/22 NAPROXEN 500 MG TABS 676550 NAPROXEN Inactive GABAPENTIN 300 MG CAPS 1 po qd x 2 days, then 1 po BID x 2 d ays, then 1 po TID GABAPENTIN 300 MG CAPS 349986 GABAPENTIN Inact amie ONETOUCH ULTRA BLUE STRP Test twice a day ONETOUCH ULTRA BLUE STRP GLUCOSE BLOOD Inactive NAPROXEN SODIUM 220 MG ORAL TABS 1 three times a day as needed 2 NAPROXEN SODIUM 220 MG ORAL TABS 331409 NAPROXEN SODIUM Inactive TOURINKUO SOLOSTAR 300 UNIT/ML SC SOPN 10 units SC daily CELINA PARIKH 300 UNIT/ML SC SOPN INSULIN GLARGINE Inac tive SUCRALFATE 1 GM TABS 1 four times a day to coat the stomach 2015 SUCRALFATE 1 GM TABS 224410 SUCRALFATE Inactive Immunizations Vaccine Administration Date Value Standard Floyd cription pneumococcal immunization administered Pneumovax 23 [CVX33] pneumococcal polysaccharide vaccine, 23 valent Seasonal influenza vaccine, injectable, containing preservative, for > 3 years old (Afluria, FluLaval, Fluzone, Fluvirin, Fluarix, Agriflu(>= 18 yo)) Fluzone (>3 yrs.) [[id number]] Influenza, seasonal, inject able Seasonal influenza vaccine, injectable, containing preservative, for > 3 years old (Afluria, FluLaval, Fluzone, Fluvirin, Fluarix, Agriflu(>= 18 yo)) Fluzone (>3 yrs.) [[id number]] Influenza, seasonal, inject able Vital Signs Date Name Value Unit Range Description blood pressure, diastolic - 8462-4 69 mm[Hg] BP salmeron blood pressure, systolic - 8480-6 108 mm[Hg] BP sys height E&M - 8302-2 66.5 [in_us] Bdy h eight pulse rate E&M - 8867-4 93 /min H eart rate temperature E&M 98.0 [degF] Body temp erature weight E&M - 3141-9 229.5 [lb_av] Weigh t Measured blood pressure, diastolic - 8462-4 48 mm[Hg] [...] C - Chemistry sodium, serum 139 mmol/L 665-983 3665/07/07 potassium, serum 4.5 mmol/L 3.5-5.2 chloride, serum [...] Panel - Chemistry sodium, serum 143 mmol/L 749-569 3661/12/19 carbon dioxide, venous blood 32.5 mmol/L 21.0-32 .0 potassium, serum 4.9 mmol/L 3.5-5.2 chloride, serum 101 mmol/L 98-107 blood glucose 129 mg/dL 65-110 urea nitrogen, blood 18 mg/dL 7-18 creatinine, serum 1.79 mg/dL 0.55-1.30 alanine aminotransferase (SGPT), serum 34 U/L 12-78 aspartate aminotransferase (SGOT), serum 26 U/L 15-37 calcium, serum 8.9 mg/dL 8.5-10.1 bilirubin, serum, total 0.30 mg/dL 0.00-1.00 cholesterol, serum 214 mg/dL 847-015 4110/12/19 triglyceride, serum, fasting 351 mg/dL 30-200 HDL [...] Panel - Chemistry sodium, serum 141 mmol/L 160-725 7166/08/08 potassium, serum 4.9 mmol/L 3.5-5.2 chloride, serum 101 mmol/L 98-107 carbon dioxide, venous blood 34.1 mmol/L 21.0-32 .0 creatinine, serum 1.98 mg/dL 0.55-1.30 blood glucose 193 mg/dL 65-110 urea nitrogen, blood 30 mg/dL 7-18 calcium, serum 9.8 mg/dL 8.5-10.1 Encounters Code Encounter Date Provider Facility CPT-21846 Level 4 Est. Patient 14:22:31 CDT Baltazar Childers MD [facility] CPT-63542 Level 4 Est. Patient 15:44:38 CDT Shonna Parker APRN [facility] CPT-47160 Level 4 Est. Patient 11:34:17 CDT Baltazar Childers MD [facility]-19349 Level 3 Est. Patient 16:40:40 CDT Baltazar Childers MD [facility]-39243 Level 4 Est. Patient 10:41:24 CDT Baltazar Childers MD [facility]-33212 Level 4 Est. Patient 16:01:48 CDT Baltazar Childers MD [facility]-44726 Level 4 Est. Patient 16:54:07 CVOR NURSE Baltazar Childers MD [facility]-53103 Level 4 Est. Patient 15:42:12 CDT Baltazar Childers MD [facility]-44029 Level 4 Est. Patient 11:29:55 CDT Baltazar Childers MD [facility]-42234 Level 4 Est. Patient 14:15:19 CDT Baltazar Childers MD [facility]-47550 Level 4 Est. Patient 12:20:13 CDT Baltazar Childers MD [facility]-31283 Level 4 Est. Patient 14:52:45 CVOR NURSE Baltazar Childers MD [facility]-81614 Level 4 Est. Patient 14:18:34 CVOR NURSE Baltazar Childers MD [facility]-16233 Level 4 Est. Patient 15:18:29 CDT Baltazar Childers MD [facility]-95138 Level 3 Est. Patient 12:45:34 CDT Baltazar Childers MD [facility]-21744 Level 3 Est. Patient 10:10:11 CDT Baltazar Childers MD [facility]-41816 Level 3 Est. Patient 14:07:50 CDT Baltazar Childers MD [facility]-65977 Level 4 Est. Patient 12:26:10 CVOR NURSE Baltazar Childers MD [facility] CPT-51293 Level 4 Est. Patient 14:45:38 CDT Baltazar Childers MD [facility] CPT-63933 Level 4 New Patient 12:30:48 CDT Baltazar hinton MD [facility] Procedures Code Procedure Name Date Entry Date Standard Desc ription CPT-78423 Lipid - LAB USE ONLY 17:39:15 CVOR NURSE 9 CPT-81058 HGBA1C - LAB USE ONLY 17:39:15 CVOR NURSE CPT-24708 CMP - LAB USE ONLY 17:39:14 CVOR NURSE CPT-99541 Venipuncture Draw Fee 17:39:14 CVOR NURSE CPT-91089 First Vx - Ix admin via ID I M or jet injects without counseling by physician 16:55:17 CVOR NURSE CPT-70187 Fluzone Quadrivalent Intramuscular Suspe nsion 0.5 ML 16:55:17 CVOR NURSE CPT-24161 Renal Panel - LAB USE ONLY 17:39:20 CDT 201 10/31/07 CPT-14659 CBC - LAB USE ONLY 17:39:20 CDT CPT-11317 Venipuncture Draw Fee 17:39:20 CDT CPT-05321 Venipuncture Draw Fee 14:33:30 CDT CPT-84925 Renal Panel - LAB USE ONLY 14:33:30 CDT 201 10/31/07 CPT-87350 CBC - LAB USE ONLY 14:33:29 CDT CPT-39302 Venipuncture Draw Fee 14:50:21 CVOR NURSE CPT-50513 Immunization Single Admin 17:35:35 CDT 2014 CPT-29586 Fluzone Quadrivalent preservative free ( >=3yrs.) 17:35:35 CDT CPT-47095 Venipuncture Draw Fee 12:10:27 CVOR NURSE CPT-09063 Fluzone Quadrivalent Intramuscular Suspe nsion 0.5 ML 10:49:13 CDT CPT-92037 First Vx Component - Ix admi n via ID IM or jet inj without physician counseling 15:17:19 CVOR NURSE CPT-44665 Pneumovax 15:17:19 CVOR NURSE CPT-07837 Pneumovax 14:52:45 CVOR NURSE CPT-70899 Venipuncture Draw Fee 14:06:30 CVOR NURSE CPT-000 Give Appropriate Flu Vaccine 14:18:34 CVOR NURSE 2 CPT-42860 Administration single or combination vac cine inc oral 14:46:00 CVOR NURSE CPT-34264 Influenza split virus > age 3 14:46:00 CVOR NURSE CPT-OV Office Visit 19:13:16 CDT CPT-91032 Zostavax 18:41:56 CDT CPT-84057 Administration single or combination vac cine inc oral 12:56:39 CDT CPT-67211 Zoster Vaccine (Zostavax) 12:56:39 CDT 2012 CPT-75301 Venipuncture Draw Fee 10:58:57 CDT CPT-88535 Sono pelvis non OB uterus ovaries cervix 17:45:04 CDT CPT-39303 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
--- OUTSIDE RECORDS SUMMARY | 2019-10-27 12:20 | XMS REPORT | Clinical Summary ---
Author Author Admin, Elba Lance MichelleWalk-in [facility] Address Unknown Phone Unavailable Allergies, Adverse Reactions, 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 RRTS Benign neoplasm of colon PERIPHERAL NEUROPATHY 356.9 [...] ronary atherosclerosis of unspecified type of vessel, [place] or graft OTH NONSPC ABN FINDNG RAD&OTH [...] 1 tab daily for HTN AMLODIPINE BESYLATE 35806647490 Active Ct Ledesma LPN Active SYNTHROID 0.1 MG TAB 1 tablet by mouth daily LE VOTHYROXINE SODIUM 53158045976 Active Carina Tucker LPN Active GLIPIZIDE 10 MG TAB take 2 tablets twice daily GLIPIZIDE 23440113335 Active Blatazar Childers MD Active SUCRALFATE 1 GM TABS 1 four times a day to coat the stomach 2015 SUCRALFATE [id number] No Longer Active Baltazar Childers MD Active PEN NEEDLES 31G X 6 MM MISC use 1 daily INSULIN PEN NEEDLE 75871408215 Active Bella Suarez RRTS Active TOUJEO SOLOSTAR 300 UNIT/ML SC SOPN 10 units SC daily INSULIN GLARGINE 04413749528 No Longer Active Martita Godinez RMA Active LANTUS SOLOSTAR 100 UNIT/ML SC SOPN 10 units SC daily INSULIN GLARGINE 93007941171 Active KENDALL Juarez Active NAPROXEN SODIUM 220 MG ORAL TABS 1 three times a day as needed 2 NAPROXEN SODIUM 63269048699 No Longer Active Baltazar Childers MD Active ATORVASTATIN CALCIUM 20 MG ORAL TABS Take 1 tab daily ATORVASTATIN CALCIUM 46128526719 Active Baltazar Childers MD Active FUROSEMIDE 40 MG TABS Take one by mouth daily FUROSEMIDE 03156524377 Active Baltazar Childers MD Active LISINOPRIL 20 MG TABS Take one by mouth daily at bedtime LISINOPRIL 95944859895 No Longer Active Baltazar Childers MD Active ONETOUCH ULTRA BLUE STRP Test twice a day GLUCO SE BLOOD 19187125222 No Longer Active Baltazar Childers MD Active TRUEPLUS LANCETS 33G MISC Test twice a day LANCET S 60209293241 Active KENDALL Juarez Active TRUEDRAW LANCING DEVICE MISC Test twice a day L ANCET DEVICES 03344891691 Active Baltazar Childers MD Active TRUETRACK TEST STRP Test twice a day GLUCOSE BLOO D 55651468539 Active KENDLAL Juarez Active TRUETRACK BLOOD GLUCOSE W/DEVICE KIT Test twice a day BLOOD GLUCOSE MONITORING SUPPL 94153244971 Active Baltazar Childers MD Activ e HYDROCODONE-ACETAMINOPHEN 7.5-325 MG TABS Take 1 tab every 6-8 hour s PRN HYDROCODONE-ACETAMINOPHEN 05484506662 Active Baltazar Childers MD Active NORTRIPTYLINE HCL 50 MG CAPS 1 every night for neuropathy 4 NORTRIPTYLINE HCL 94909577842 Active Baltazar Childers MD Acti ve GABAPENTIN 300 MG CAPS 1 three times a day GABAPE NTIN 20775321523 Active Baltazar Childers MD Active GABAPENTIN 300 MG CAPS 1 po qd x 2 days, then 1 po BID x 2 d ays, then 1 po TID GABAPENTIN 62125214341 No Longer Active Baltazar silverman MD Active TRAMADOL HCL 50 MG TABS 1 twice a day as needed for pain TRAMADOL HCL 63790204989 Active Baltazar Childers MD Active NAPROXEN 500 MG TABS 1 tablet by mouth twice daily NAPROXEN 61580693377 No Longer Active Baltazar Childers MD Active PROAIR HFA 108 (90 BASE) MCG/ACT AERS 2 puffs four times a d ay as needed ALBUTEROL SULFATE 99977977798 Active Baltazar Childers MD Active DEPO-TESTOSTERONE 200 MG/ML OIL as directed RUFINO TOSTERONE CYPIONATE 59058790311 No Longer Active Baltazar Childers MD Active LIPITOR 20 MG TABS Take one by mouth daily in evening ATORVASTATIN CALCIUM 80709106954 No Longer Active Baltazar Childers MD Activ e CRESTOR 10 MG TABS 1 by mouth every day R OSUVASTATIN CALCIUM 64520804944 No Longer Active Baltazar Childers MD Activ e PHENTERMINE HCL 37.5 MG TABS Take one by mouth daily 2 PHENTERMINE HCL 06268333662 No Longer Active Baltazar Childers MD Activ e ROBAXIN-750 750 MG TABS Take one by mouth daily ME THOCARBAMOL 11834391789 Active Baltazar Childers MD Active TIZANIDINE HCL 4 MG TABS 1 daily as needed for muscle spasm 2011 TIZANIDINE HCL 99783914829 No Longer Active Dawna Salazar RN Active [id number]-[id number] 50-325-40 MG TABS 1 four time s a day as needed for heacache [id number] 06641413686 Active Baltazar Childers MD Active SUMATRIPTAN SUCCINATE 100 MG TABS 1 tablet by mouth at onset of migraine as needed SUMATRIPTAN SUCCINATE 66529015134 Active Shonna richey APRN Active LORATADINE 10 MG TABS Take one by mouth daily LORATADINE 25642924310 Active Beth Carr KENDALL Active OMEPRAZOLE 20 MG CPDR Take one by mouth daily OMEPRAZOLE 78546558383 Active Baltazar Childers MD Active HYDROXYZINE HCL 25 MG TABS Take one by mouth daily HYDROXYZINE HCL 58384763811 Active Baltazar Childers MD Active ALPRAZOLAM 1 MG TABS 1 tablet by mouth daily at bedtime for restles s leg ALPRAZOLAM 45569069681 Active Baltazar Childers MD Active METFORMIN HCL 1000 MG TABS Take one by mouth twice daily METFORMIN HCL 00537893637 Active Baltazar Childers MD Active TIZANIDINE HCL 4 MG TABS 1 daily as needed for muscle spasm 2011 TIZANIDINE HCL 4 MG TABS 829038 TIZANIDINE HCL Inactiv e PHENTERMINE HCL 37.5 MG TABS Take one by mouth daily 2 PHENTERMINE HCL 37.5 MG TABS 398966 PHENTERMINE HCL Inactive CRESTOR 10 MG TABS 1 by mouth every day C RESTOR 10 MG TABS 351798 ROSUVASTATIN CALCIUM Inactive LIPITOR 20 MG TABS Take one by mouth daily in evening LIPITOR 20 MG TABS 317806 ATORVASTATIN CALCIUM Inactive DEPO-TESTOSTERONE 200 MG/ML OIL as directed 8 DEPO-TESTOSTERONE 200 MG/ML OIL 661262 TESTOSTERONE CYPIONATE Inactive NAPROXEN 500 MG TABS 1 tablet by mouth twice daily 201 07/27/22 NAPROXEN 500 MG TABS 307918 NAPROXEN Inactive GABAPENTIN 300 MG CAPS 1 po qd x 2 days, then 1 po BID x 2 d ays, then 1 po TID GABAPENTIN 300 MG CAPS 476273 GABAPENTIN Inact amie ONETOUCH ULTRA BLUE STRP Test twice a day ONETOUCH ULTRA BLUE STRP GLUCOSE BLOOD Inactive NAPROXEN SODIUM 220 MG ORAL TABS 1 three times a day as needed 2 NAPROXEN SODIUM 220 MG ORAL TABS 540205 NAPROXEN SODIUM Inactive TOUJEO SOLOSTAR 300 UNIT/ML SC SOPN 10 units SC daily TOUJEO SOLOSTAR 300 UNIT/ML SC SOPN INSULIN GLARGINE Inac tive SUCRALFATE 1 GM TABS 1 four times a day to coat the stomach 2015 SUCRALFATE 1 GM TABS 617142 SUCRALFATE Inactive Immunizations Vaccine Administration Date Value Standard Floyd cription pneumococcal immunization administered Pneumovax 23 [CVX33] pneumococcal polysaccharide vaccine, 23 valent Seasonal influenza vaccine, injectable, containing preservative, for > 3 years old (Afluria, FluLaval, Fluzone, Fluvirin, Fluarix, Agriflu(>= 18 yo)) Fluzone (>3 yrs.) [DDZ306] Influenza, seasonal, inject able Seasonal influenza vaccine, injectable, containing preservative, for > 3 years old (Afluria, FluLaval, Fluzone, Fluvirin, Fluarix, Agriflu(>= 18 yo)) Fluzone (>3 yrs.) [DEX558] Influenza, seasonal, inject able Vital Signs Date [...] C - Chemistry sodium, serum 143 mmol/L 563-310 0983/06/19 potassium, serum 5.9 mmol/L 3.5-5.2 chloride, serum [...] Panel - Chemistry sodium, serum 143 mmol/L 207-019 8316/12/19 carbon dioxide, venous blood 32.5 mmol/L 21.0-32 .0 potassium, serum 4.9 mmol/L 3.5-5.2 chloride, serum 101 mmol/L 98-107 blood glucose 129 mg/dL 65-110 urea nitrogen, blood 18 mg/dL 7-18 creatinine, serum 1.79 mg/dL 0.55-1.30 alanine aminotransferase (SGPT), serum 34 U/L 12-78 aspartate aminotransferase (SGOT), serum 26 U/L 15-37 calcium, serum 8.9 mg/dL 8.5-10.1 bilirubin, serum, total 0.30 mg/dL 0.00-1.00 cholesterol, serum 214 mg/dL 825-541 4515/12/19 triglyceride, serum, fasting 351 mg/dL 30-200 HDL [...] Panel - Chemistry sodium, serum 141 mmol/L 585-211 9708/08/08 potassium, serum 4.9 mmol/L 3.5-5.2 chloride, serum 101 mmol/L 98-107 carbon dioxide, venous blood 34.1 mmol/L 21.0-32 .0 creatinine, serum 1.98 mg/dL 0.55-1.30 blood glucose 193 mg/dL 65-110 urea nitrogen, blood 30 mg/dL 7-18 calcium, serum 9.8 mg/dL 8.5-10.1 Encounters Code Encounter Date Provider Facility CPT-67423 Level 4 Est. Patient 14:22:31 CDT Baltazar Childers MD [facility] CPT-01654 Level 4 Est. Patient 15:44:38 CDT Shonna Parker [facility] CPT-72086 Level 4 Est. Patient 11:34:17 CDT Baltazar Childers MD [facility] CPT-59870 Level 3 Est. Patient 16:40:40 CDT Baltazar Childers MD [facility] CPT-60469 Level 4 Est. Patient 10:41:24 CDT Baltazar Childers MD [facility] CPT-82200 Level 4 Est. Patient 16:01:48 CDT Baltazar Childers MD [facility] CPT-79447 Level 4 Est. Patient 16:54:07 LABOR UTILIZATION SUPERINTENDENT Baltazar Childers MD [facility] CPT-22753 Level 4 Est. Patient 15:42:12 CDT Baltazar Childers MD [facility] CPT-56935 Level 4 Est. Patient 11:29:55 CDT Baltazar Childers MD [facility] CPT-93177 Level 4 Est. Patient 14:15:19 CDT Baltazar Childers MD [facility] CPT-87753 Level 4 Est. Patient 12:20:13 CDT Baltazar Childers MD [facility] CPT-05190 Level 4 Est. Patient 14:52:45 LABOR UTILIZATION SUPERINTENDENT Baltazar Childers MD [facility] CPT-86842 Level 4 Est. Patient 14:18:34 LABOR UTILIZATION SUPERINTENDENT Baltazar Childers MD [facility] CPT-47916 Level 4 Est. Patient 15:18:29 CDT Baltazar Childers MD [facility] CPT-68882 Level 3 Est. Patient 12:45:34 CDT Baltazar Childers MD [facility] CPT-69466 Level 3 Est. Patient 10:10:11 CDT Baltazar Childers MD [facility] CPT-48512 Level 3 Est. Patient 14:07:50 CDT Baltazar Childers MD [facility] CPT-76364 Level 4 Est. Patient 12:26:10 LABOR UTILIZATION SUPERINTENDENT Baltazar Childers MD [facility] CPT-27480 Level 4 Est. Patient 14:45:38 CDT Baltazar Childers MD [facility] CPT-56696 Level 4 New Patient 12:30:48 CDT Baltazar hinton MD [facility] Procedures Code Procedure Name Date Entry Date Standard Desc ription CPT-90277 Lipid - LAB USE ONLY 17:39:15 LABOR UTILIZATION SUPERINTENDENT 9 CPT-95509 HGBA1C - LAB USE ONLY 17:39:15 LABOR UTILIZATION SUPERINTENDENT CPT-93146 CMP - LAB USE ONLY 17:39:14 LABOR UTILIZATION SUPERINTENDENT CPT-24040 Venipuncture Draw Fee 17:39:14 LABOR UTILIZATION SUPERINTENDENT CPT-34672 First Vx - Ix admin via ID I M or jet injects without counseling by physician 16:55:17 LABOR UTILIZATION SUPERINTENDENT CPT-94982 Fluzone Quadrivalent Intramuscular Suspe nsion 0.5 ML 16:55:17 LABOR UTILIZATION SUPERINTENDENT CPT-01550 Renal Panel - LAB USE ONLY 17:39:20 CDT 201 10/31/07 CPT-76362 CBC - LAB USE ONLY 17:39:20 CDT CPT-11401 Venipuncture Draw Fee 17:39:20 CDT CPT-97749 Venipuncture Draw Fee 14:33:30 CDT CPT-97688 Renal Panel - LAB USE ONLY 14:33:30 CDT 201 10/31/07 CPT-82871 CBC - LAB USE ONLY 14:33:29 CDT CPT-64197 Venipuncture Draw Fee 14:50:21 LABOR UTILIZATION SUPERINTENDENT CPT-69540 Immunization Single Admin 17:35:35 CDT 2014 CPT-33449 Fluzone Quadrivalent preservative free ( >=3yrs.) 17:35:35 CDT CPT-64835 Venipuncture Draw Fee 12:10:27 LABOR UTILIZATION SUPERINTENDENT CPT-13501 Fluzone Quadrivalent Intramuscular Suspe nsion 0.5 ML 10:49:13 CDT CPT-32213 First Vx Component - Ix admi n via ID IM or jet inj without physician counseling 15:17:19 LABOR UTILIZATION SUPERINTENDENT CPT-60726 Pneumovax 23 15:17:19 LABOR UTILIZATION SUPERINTENDENT CPT-49255 Pneumovax 14:52:45 LABOR UTILIZATION SUPERINTENDENT CPT-04115 Venipuncture Draw Fee 14:06:30 LABOR UTILIZATION SUPERINTENDENT CPT-000 Give Appropriate Flu Vaccine 14:18:34 LABOR UTILIZATION SUPERINTENDENT 2 CPT-94762 Administration single or combination vac cine inc oral 14:46:00 LABOR UTILIZATION SUPERINTENDENT CPT-82955 Influenza split virus > age 3 14:46:00 LABOR UTILIZATION SUPERINTENDENT CPT-OV Office Visit 19:13:16 CDT CPT-37915 Zostavax 18:41:56 CDT CPT-30915 Administration single or combination vac cine inc oral 12:56:39 CDT CPT-16373 Zoster Vaccine (Zostavax) 12:56:39 CDT 2012 CPT-08386 Venipuncture Draw Fee 10:58:57 CDT CPT-65662 Sono pelvis non OB uterus ovaries cervix 17:45:04 CDT CPT-02286 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
--- OUTSIDE RECORDS SUMMARY | 2019-10-27 12:21 | XMS REPORT | Clinical Summary ---
Author Author Admin, Elba Lance [employer] Address Unknown Phone Unavailable Allergies, Adverse Reactions, 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 BARTENDER Benign neoplasm of colon PERIPHERAL NEUROPATHY 356.9 [...] 1 tab daily for HTN AMLODIPINE BESYLATE 01181236949 Active KENDALL Juarez Active SYNTHROID 0.1 MG TAB 1 tablet by mouth daily LE VOTHYROXINE SODIUM 16323774045 Active Shonna Parker APRN Active GLIPIZIDE 10 MG TAB take 2 tablets twice daily GLIPIZIDE 12985831884 Active Baltazar Childers MD Active SUCRALFATE 1 GM TABS 1 four times a day to coat the stomach 2015 SUCRALFATE 14612372299 No Longer Active Baltazar Childers MD Active PEN NEEDLES 31G X 6 MM MISC use 1 daily INSULIN PEN NEEDLE 48792086041 Active Gato Rae MD Active TOUJEO SOLOSTAR 300 UNIT/ML SC SOPN 10 units SC daily INSULIN GLARGINE 96575336257 No Longer Active [employer] ARGUETA Active LANTUS SOLOSTAR 100 UNIT/ML SC SOPN 10 units SC daily INSULIN GLARGINE 32612742347 Active KENDALL Juarez Active NAPROXEN SODIUM 220 MG ORAL TABS 1 three times a day as needed 2 NAPROXEN SODIUM 58513378050 No Longer Active Baltazar Childers MD Active ATORVASTATIN CALCIUM 20 MG ORAL TABS Take 1 tab daily ATORVASTATIN CALCIUM 14213705774 Active KENDALL Juarez Active FUROSEMIDE 40 MG TABS Take one by mouth daily FUROSEMIDE 34788391220 Active Baltazar Childers MD Active LISINOPRIL 20 MG TABS Take one by mouth daily at bedtime LISINOPRIL 50530789999 No Longer Active Baltazar Childers MD Active ONETOUCH ULTRA BLUE STRP Test twice a day GLUCO SE BLOOD 69480187721 No Longer Active Baltazar Childers MD Active TRUEPLUS LANCETS 33G MISC Test twice a day LANCET S 02000624433 Active KENDALL Juarez Active TRUEDRAW LANCING DEVICE MISC Test twice a day L ANCET DEVICES 55938640051 Active Baltazar Childers MD Active TRUETRACK TEST STRP Test twice a day GLUCOSE BLOO D 68308505757 Active KENDALL Juarez Active TRUETRACK BLOOD GLUCOSE W/DEVICE KIT Test twice a day BLOOD GLUCOSE MONITORING SUPPL 98391390605 Active Baltazar Childers MD Activ e HYDROCODONE-ACETAMINOPHEN 7.5-325 MG TABS Take 1 tab every 6-8 hour s PRN HYDROCODONE-ACETAMINOPHEN 79314060630 Active Baltazar Childers MD Active NORTRIPTYLINE HCL 50 MG CAPS 1 every night for neuropathy 4 NORTRIPTYLINE HCL 70770280953 Active Baltazar Childers MD Acti ve GABAPENTIN 300 MG CAPS 1 three times a day GABAPE NTIN 94592440568 Active Baltazar Childers MD Active GABAPENTIN 300 MG CAPS 1 po qd x 2 days, then 1 po BID x 2 d ays, then 1 po TID GABAPENTIN 94075460703 No Longer Active Baltazar silverman MD Active TRAMADOL HCL 50 MG TABS 1 twice a day as needed for pain TRAMADOL HCL 58941294622 Active Baltazar Childers MD Active NAPROXEN 500 MG TABS 1 tablet by mouth twice daily NAPROXEN 44177642570 No Longer Active Batlazar Childers MD Active PROAIR HFA 108 (90 BASE) MCG/ACT AERS 2 puffs four times a d ay as needed ALBUTEROL SULFATE 07123435203 Active Baltazar Childers MD Active DEPO-TESTOSTERONE 200 MG/ML OIL as directed RUFINO TOSTERONE CYPIONATE 08059178060 No Longer Active Baltazar Childers MD Active LIPITOR 20 MG TABS Take one by mouth daily in evening ATORVASTATIN CALCIUM 33292006245 No Longer Active Baltazar Childers MD Activ e CRESTOR 10 MG TABS 1 by mouth every day R OSUVASTATIN CALCIUM 18606243960 No Longer Active Baltazar Childers MD Activ e PHENTERMINE HCL 37.5 MG TABS Take one by mouth daily 2 PHENTERMINE HCL 47855050604 No Longer Active Baltazar Childers MD Activ e ROBAXIN-750 750 MG TABS Take one by mouth daily ME THOCARBAMOL 91521795209 Active Baltazar Childers MD Active TIZANIDINE HCL 4 MG TABS 1 daily as needed for muscle spasm 2011 TIZANIDINE HCL 63954477621 No Longer Active Dawna Salazar RN Active [id number] 50-325-40 MG TABS 1 four time s a day as needed for heacache [id number] 65404977704 Active KENDALL Juarez Active SUMATRIPTAN SUCCINATE 100 MG TABS 1 tablet by mouth at onset of migraine as needed SUMATRIPTAN SUCCINATE 93563484660 Active KENDALL Juarez Active LORATADINE 10 MG TABS Take one by mouth daily LORATADINE 87666094560 Active Beth KENDALL Carr Active OMEPRAZOLE 20 MG CPDR Take one by mouth daily OMEPRAZOLE 12043393604 Active Baltazar Childers MD Active HYDROXYZINE HCL 25 MG TABS Take one by mouth daily HYDROXYZINE HCL 30506313331 Active Baltazar Childers MD Active ALPRAZOLAM 1 MG TABS 1 tablet by mouth daily at bedtime for restles s leg ALPRAZOLAM 12636140445 Active Baltazar Childers MD Active METFORMIN HCL 1000 MG TABS Take one by mouth twice daily METFORMIN HCL 43635463722 Active Baltazar Childers MD Active TIZANIDINE HCL 4 MG TABS 1 daily as needed for muscle spasm 2011 TIZANIDINE HCL 4 MG TABS 501240 TIZANIDINE HCL Inactiv e PHENTERMINE HCL 37.5 MG TABS Take one by mouth daily 2 PHENTERMINE HCL 37.5 MG TABS 434416 PHENTERMINE HCL Inactive CRESTOR 10 MG TABS 1 by mouth every day C RESTOR 10 MG TABS 774158 ROSUVASTATIN CALCIUM Inactive LIPITOR 20 MG TABS Take one by mouth daily in evening LIPITOR 20 MG TABS 931198 ATORVASTATIN CALCIUM Inactive DEPO-TESTOSTERONE 200 MG/ML OIL as directed 8 DEPO-TESTOSTERONE 200 MG/ML OIL 628292 TESTOSTERONE CYPIONATE Inactive NAPROXEN 500 MG TABS 1 tablet by mouth twice daily 201 07/27/22 NAPROXEN 500 MG TABS 497864 NAPROXEN Inactive GABAPENTIN 300 MG CAPS 1 po qd x 2 days, then 1 po BID x 2 d ays, then 1 po TID GABAPENTIN 300 MG CAPS 361155 GABAPENTIN Inact amie ONETOUCH ULTRA BLUE STRP Test twice a day ONETOUCH ULTRA BLUE STRP GLUCOSE BLOOD Inactive NAPROXEN SODIUM 220 MG ORAL TABS 1 three times a day as needed 2 NAPROXEN SODIUM 220 MG ORAL TABS 745540 NAPROXEN SODIUM Inactive TOUJEO SOLOSTAR 300 UNIT/ML SC SOPN 10 units SC daily TOUJEO SOLOSTAR 300 UNIT/ML SC SOPN INSULIN GLARGINE Inac tive SUCRALFATE 1 GM TABS 1 four times a day to coat the stomach 2015 SUCRALFATE 1 GM TABS 532692 SUCRALFATE Inactive Immunizations Vaccine Administration Date Value Standard Floyd cription pneumococcal immunization administered Pneumovax 23 [CVX33] pneumococcal polysaccharide vaccine, 23 valent Seasonal influenza vaccine, injectable, containing preservative, for > 3 years old (Afluria, FluLaval, Fluzone, Fluvirin, Fluarix, Agriflu(>= 18 yo)) Fluzone (>3 yrs.) [[id number]] Influenza, seasonal, inject able Seasonal influenza vaccine, injectable, containing preservative, for > 3 years old (Afluria, FluLaval, Fluzone, Fluvirin, Fluarix, Agriflu(>= 18 yo)) Fluzone (>3 yrs.) [[id number]] Influenza, seasonal, inject able Vital Signs Date [...] C - Chemistry sodium, serum 143 mmol/L 078-255 8253/06/19 potassium, serum 5.9 mmol/L 3.5-5.2 chloride, serum 105 mmol/L 98-107 carbon dioxide, venous blood 30.2 mmol/L 21.0-32 .0 blood glucose 189 mg/dL 65-110 calcium, serum 9.7 mg/dL 8.5-10.1 urea nitrogen, blood 37 mg/dL 7-18 creatinine, serum 2.11 mg/dL 0.55-1.30 hemoglobin A1C, blood, as % of total hemoglobin 8.2 % 4.3-6.0 Lab Report: CBC, Renal Panel - Chemistry sodium, serum 142 mmol/L 564-431 1998/08/11 potassium, serum 4.8 mmol/L 3.5-5.2 chloride, serum [...] Panel - Chemistry sodium, serum 143 mmol/L 205-871 6206/12/19 carbon dioxide, venous blood 32.5 mmol/L 21.0-32 .0 potassium, serum 4.9 mmol/L 3.5-5.2 chloride, serum 101 mmol/L 98-107 blood glucose 129 mg/dL 65-110 urea nitrogen, blood 18 mg/dL 7-18 creatinine, serum 1.79 mg/dL 0.55-1.30 alanine aminotransferase (SGPT), serum 34 U/L 12-78 aspartate aminotransferase (SGOT), serum 26 U/L 15-37 calcium, serum 8.9 mg/dL 8.5-10.1 bilirubin, serum, total 0.30 mg/dL 0.00-1.00 cholesterol, serum 214 mg/dL 517-041 2697/12/19 triglyceride, serum, fasting 351 mg/dL 30-200 HDL [...] 4.3-6.0 Encounters Code Encounter Date Provider Facility CPT-05824 Level 4 Est. Patient 14:22:31 CDT Baltazar Childers MD [facility] CPT-23313 Level 4 Est. [facility] 15:44:38 [facility] Est. Patient 11:34:17 CDT Baltazar Childers MD [facility] CPT-46307 Level 3 Est. Patient 16:40:40 CDT Baltazar Childers MD [facility] CPT-76053 Level 4 Est. Patient 10:41:24 CDT Baltazar Childers MD [facility] CPT-85961 Level 4 Est. Patient 16:01:48 CDT Baltazar Childers MD [facility] CPT-31493 Level 4 Est. Patient 16:54:07 COAL MILL OPERATOR Baltazar Childers MD [facility] CPT-86055 Level 4 Est. Patient 15:42:12 CDT Baltazar Childers MD [facility] CPT-28820 Level 4 Est. Patient 11:29:55 CDT Baltazar Childers MD [facility] CPT-79333 Level 4 Est. Patient 14:15:19 CDT Baltazar Childers MD [facility] CPT-50585 Level 4 Est. Patient 12:20:13 CDT Baltazar Childers MD [facility] CPT-41541 Level 4 Est. Patient 14:52:45 COAL MILL OPERATOR Baltazar Childers MD [facility] CPT-64715 Level 4 Est. Patient 14:18:34 COAL MILL OPERATOR Baltazar Childers MD [facility] CPT-84643 Level 4 Est. Patient 15:18:29 CDT Baltazar Childers MD [facility] CPT-31594 Level 3 Est. Patient 12:45:34 CDT Baltazar Childers MD [facility] CPT-99437 Level 3 Est. Patient 10:10:11 CDT Baltazar Childers MD [facility] CPT-09886 Level 3 Est. Patient 14:07:50 CDT Baltazar Childers MD [facility] CPT-23244 Level 4 Est. Patient 12:26:10 COAL MILL OPERATOR Baltazar Childers MD [facility] CPT-88030 Level 4 Est. Patient 14:45:38 CDT Baltazar Childers MD [facility] CPT-24921 Level 4 New Patient 12:30:48 CDT Baltazar hinton MD [facility] Procedures Code Procedure Name Date Entry Date Standard Desc ription CPT-29792 Venipuncture Draw Fee 12:04:12 CDT CPT-35268 Lipid - LAB USE ONLY 17:39:15 COAL MILL OPERATOR 9 CPT-27313 HGBA1C - LAB USE ONLY 17:39:15 COAL MILL OPERATOR CPT-66298 CMP - LAB USE ONLY 17:39:14 COAL MILL OPERATOR CPT-18640 Venipuncture Draw Fee 17:39:14 COAL MILL OPERATOR CPT-72376 First Vx - Ix admin via ID I M or jet injects without counseling by physician 16:55:17 COAL MILL OPERATOR CPT-41175 Fluzone Quadrivalent Intramuscular Suspe nsion 0.5 ML 16:55:17 COAL MILL OPERATOR CPT-05739 Renal Panel - LAB USE ONLY 17:39:20 CDT 201 10/31/07 CPT-74700 CBC - LAB USE ONLY 17:39:20 CDT CPT-17673 Venipuncture Draw Fee 17:39:20 CDT CPT-86138 Venipuncture Draw Fee 14:33:30 CDT CPT-67827 Renal Panel - LAB USE ONLY 14:33:30 CDT 201 10/31/07 CPT-09700 CBC - LAB USE ONLY 14:33:29 CDT CPT-33885 Venipuncture Draw Fee 14:50:21 COAL MILL OPERATOR CPT-37754 Immunization Single Admin 17:35:35 CDT 2014 CPT-70165 Fluzone Quadrivalent preservative free ( >=3yrs.) 17:35:35 CDT CPT-53762 Venipuncture Draw Fee 12:10:27 COAL MILL OPERATOR CPT-35150 Fluzone Quadrivalent Intramuscular Suspe nsion 0.5 ML 10:49:13 CDT CPT-95431 First Vx Component - Ix admi n via ID IM or jet inj without physician counseling 15:17:19 COAL MILL OPERATOR CPT-09687 Pneumovax 23 15:17:19 COAL MILL OPERATOR CPT-11511 Pneumovax 14:52:45 COAL MILL OPERATOR CPT-35255 Venipuncture Draw Fee 14:06:30 COAL MILL OPERATOR CPT-000 Give Appropriate Flu Vaccine 14:18:34 COAL MILL OPERATOR 2 CPT-88316 Administration single or combination vac cine inc oral 14:46:00 COAL MILL OPERATOR CPT-96507 Influenza split virus > age 3 14:46:00 COAL MILL OPERATOR CPT-OV Office Visit 19:13:16 CDT CPT-11044 Zostavax 18:41:56 CDT CPT-48269 Administration single or combination vac cine inc oral 12:56:39 CDT CPT-09933 Zoster Vaccine (Zostavax) 12:56:39 CDT 2012 CPT-83184 Venipuncture Draw Fee 10:58:57 CDT CPT-31320 Sono pelvis non OB uterus ovaries cervix 17:45:04 CDT CPT-64946 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
--- OUTSIDE RECORDS SUMMARY | 2019-10-27 12:21 | XMS REPORT | Clinical Summary ---
Author Author Abhishek, Elba Lance [facility] 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 [employer]AD[employer] Benign neoplasm of colon PERIPHERAL NEUROPATHY 356.9 [...] ronary atherosclerosis of unspecified type of vessel, [place] or graft OTH NONSPC ABN FINDNG RAD&OTH EXM BODY STRUCTURE 793.99 11/08 Active Jessy Ruiz Other nonspecific (a bnormal) findings on radiological and other examinations of body structure NEED PROPH VACC&INOCULAT AGNST OTH SPEC DISEASE V05.8 0/ Active Elba Faux RMA Need for prophylacti c vaccination and inoculation against other specified disease UNSPECIFIED DISORDER OF KIDNEY AND URETER 593.9 Activ e Leba Faux RMA Unspecified disorder of kidney and [...] Test twice a day GLUCO SE BLOOD 89640479835 No Longer Active Baltazar Childers MD Active TRUEPLUS LANCETS 33G MISC Test twice a day LANCET S 20199497760 Active Baltazar Childers MD Active TRUEDRAW LANCING DEVICE MISC Test twice a day L ANCET DEVICES 73686184851 Active Baltazar Childers MD Active TRUETRACK TEST STRP Test twice a day GLUCOSE BLOO D 10342698222 Active Baltazar Childers MD Active TRUETRACK BLOOD GLUCOSE W/DEVICE KIT Test twice a day BLOOD GLUCOSE MONITORING SUPPL 64257416810 Active Baltazar Childers MD Activ e HYDROCODONE-ACETAMINOPHEN 7.5-325 MG TABS Take 1 tab every 6-8 hour s PRN HYDROCODONE-ACETAMINOPHEN 41167928000 Active Gato Rae MD Active NORTRIPTYLINE HCL 50 MG CAPS 1 every night for neuropathy 4 NORTRIPTYLINE HCL 56508024049 Active Baltazar Childers MD Acti ve GABAPENTIN 300 MG CAPS 1 three times a day GABAPE NTIN 02088464580 Active Baltazar Chiledrs MD Active GABAPENTIN 300 MG CAPS 1 po qd x 2 days, then 1 po BID x 2 d ays, then 1 po TID GABAPENTIN 53815448545 No Longer Active Baltazar silverman MD Active TRAMADOL HCL 50 MG TABS 1 twice a day as needed for pain TRAMADOL HCL 01629758620 Active Baltazar Childers MD Active NAPROXEN 500 MG TABS 1 tablet by mouth twice daily NAPROXEN 96639716235 No Longer Active Baltazar Childers MD Active PROAIR HFA 108 (90 BASE) MCG/ACT AERS 2 puffs four times a d ay as needed ALBUTEROL SULFATE 74142748603 Active Baltazar Childers MD Active DEPO-TESTOSTERONE 200 MG/ML OIL as directed RUFINO TOSTERONE CYPIONATE 87786665812 No Longer Active Baltazar Childers MD Active LIPITOR 20 MG TABS Take one by mouth daily in evening ATORVASTATIN CALCIUM 11979841252 No Longer Active Baltazar Childers MD Activ e CRESTOR 10 MG TABS 1 by mouth every day R OSUVASTATIN CALCIUM 69232934381 No Longer Active Baltazar Childers MD Activ e PHENTERMINE HCL 37.5 MG TABS Take one by mouth daily 2 PHENTERMINE HCL 16285299123 No Longer Active Baltazar Childers MD Activ e ROBAXIN-750 750 MG TABS Take one by mouth daily ME THOCARBAMOL 67768883744 Active Baltazar Chidlers MD Active TIZANIDINE HCL 4 MG TABS 1 daily as needed for muscle spasm 2011 TIZANIDINE HCL 80720427155 No Longer Active Dawna Salazar RN Active [id number] 50-325-40 MG TABS 1 four time s a day as needed for heacache [id number] 04146966325 Active Baltazar Childers MD Active SUMATRIPTAN SUCCINATE 100 MG TABS 1 tablet by mouth at onset of migraine as needed SUMATRIPTAN SUCCINATE 65975307052 Active Baltazar bynum MD Active LORATADINE 10 MG TABS Take one by mouth daily LORATADINE 85564815285 Active Baltazar Childers MD Active FUROSEMIDE 40 MG TABS Take one by mouth daily FUROSEMIDE 42897986119 Active Baltazar Childers MD Active LISINOPRIL 20 MG TABS Take one by mouth daily at bedtime LISINOPRIL 25108205782 Active Baltazar Childers MD Active OMEPRAZOLE 20 MG CPDR Take one by mouth daily OMEPRAZOLE 32468795278 Active Baltazar Childers MD Active HYDROXYZINE HCL 25 MG TABS Take one by mouth daily HYDROXYZINE HCL 14526414242 Active Baltazar Childers MD Active GLIPIZIDE 10 MG TABS 1 tablet by mouth twice daily GLIPIZIDE 79709212604 Active Baltazar Childers MD Active ALPRAZOLAM 1 MG TABS 1 tablet by mouth daily at bedtime for restles s leg ALPRAZOLAM 00456184904 Active Baltazar Childers MD Active METFORMIN HCL 1000 MG TABS Take one by mouth twice daily METFORMIN HCL 55634628013 Active Baltazar Childers MD Active TIZANIDINE HCL 4 MG TABS 1 daily as needed for muscle spasm 2011 TIZANIDINE HCL 4 MG TABS 547663 TIZANIDINE HCL Inactiv e PHENTERMINE HCL 37.5 MG TABS Take one by mouth daily 2 PHENTERMINE HCL 37.5 MG TABS 661986 PHENTERMINE HCL Inactive CRESTOR 10 MG TABS 1 by mouth every day C RESTOR 10 MG TABS ROSUVASTATIN CALCIUM Inactive LIPITOR 20 MG TABS Take one by mouth daily in evening LIPITOR 20 MG TABS 561343 ATORVASTATIN CALCIUM Inactive DEPO-TESTOSTERONE 200 MG/ML OIL as directed 8 DEPO-TESTOSTERONE 200 MG/ML OIL 429876 TESTOSTERONE CYPIONATE Inactive NAPROXEN 500 MG TABS 1 tablet by mouth twice daily 201 07/27/22 NAPROXEN 500 MG TABS 515052 NAPROXEN Inactive GABAPENTIN 300 MG CAPS 1 po qd x 2 days, then 1 po BID x 2 d ays, then 1 po TID GABAPENTIN 300 MG CAPS 612034 GABAPENTIN Inact amie ONETOUCH ULTRA BLUE STRP Test twice a day ONETOUCH ULTRA BLUE STRP GLUCOSE BLOOD Inactive Immunizations Vaccine Administration Date Value Standard Floyd cription pneumococcal immunization administered Pneumovax 23 [CVX33] pneumococcal polysaccharide vaccine, 23 valent Seasonal influenza vaccine, injectable, containing preservative, for > 3 years old (Afluria, FluLaval, Fluzone, Fluvirin, Fluarix, Agriflu(>= 18 yo)) Fluzone (>3 yrs.) [[id number]] Influenza, seasonal, inject able Seasonal influenza vaccine, injectable, containing preservative, for > 3 years old (Afluria, FluLaval, Fluzone, Fluvirin, Fluarix, Agriflu(>= 18 yo)) Fluzone (>3 yrs.) [NYB233] Influenza, seasonal, inject able Vital Signs Date [...] - Chem istry sodium, serum 140 mmol/L 429-883 4292/05/05 potassium, serum 4.9 mmol/L 3.5-5.2 chloride, serum [...] Panel - Chemistry sodium, serum 139 mmol/L 046-500 6164/01/20 potassium, serum 5.3 mmol/L 3.5-5.2 chloride, serum 99 mmol/L 98-107 carbon dioxide, venous blood 32.0 mmol/L 21.0-32 .0 blood glucose 200 mg/dL 65-110 urea nitrogen, blood 19 mg/dL 7-18 creatinine, serum 1.60 mg/dL 0.60-1.30 calcium, serum 9.5 mg/dL 8.5-10.1 Lab Report: CBC, Renal Panel - Hematolog y leukocyte count, blood 4.7 10^3/MM^3 10*3/mm3 4.6-10.2 erythrocyte (RBC) count 3.70 10^6/MM^3 10*6/mm3 4.04-5.4 8 red blood cell distribution width 14.9 % 11 .6-14.8 platelet count 262 10^3/MM^3 10*3/mm3 719-930 3214/01/20 hemoglobin, blood 11.9 g/dL 12.0-16.0 mean corpuscular hemoglobin concentration, RBC 33.3 G/DL % 31.8-35.4 hematocrit, blood 35.6 % 36.0-46.0 mean corpuscular volume, RBC 96 fL 80-97 mean corpuscular hemoglobin, RBC 32.0 pg 27. 0-31.2 Lab Report: HGBA1C - Chemistry hemoglobin A1C, blood, as % of total hemoglobin 7.3 % 4.3-6.0 Lab Report: MICROALBUMIN, Lipid Panel, H GBA1C, Comp. Metabolic Panel - Chemistry albumin/creatinine ratio, urine 30 - 300 mg/g mg/g{creat} 0-29 cholesterol, serum 319 mg/dL 238-942 4737/08/21 triglyceride, serum, fasting 546 mg/dL 30-200 HDL cholesterol, serum 39 mg/dL 32-96 LDL cholesterol, serum 167.00 mg/dL 5.00-130.00 hemoglobin A1C, blood, as % of total hemoglobin 7.7 % 4.3-6.0 sodium, serum 138 mmol/L 252-987 3417/08/21 potassium, serum 4.3 mmol/L 3.5-5.2 chloride, serum 100 mmol/L 98-107 carbon dioxide, venous blood 33.2 mmol/L 21.0-32 .0 blood glucose 138 mg/dL 65-110 urea nitrogen, blood 13 mg/dL 7-18 creatinine, serum 1.40 mg/dL 0.60-1.30 bilirubin, serum, total 0.20 mg/dL 0.00-1.00 calcium, serum 9.8 mg/dL 8.5-10.1 alkaline phosphatase, serum 55 U/L 50-136 aspartate aminotransferase (SGOT), serum 29 U/L 15-37 alanine aminotransferase (SGPT), serum 54 U/L 12-78 Lab Report: MICROALBUMIN, Lipid Panel, H GBA1C, Comp. Metabolic Panel - Lab microalbumin, urine 10 0-19 Encounters Code Encounter Date Provider Facility CPT-03204 Level 4 Est. Patient 11:29:55 CDT Baltazar Childers MD [facility] CPT-14177 Level 4 Est. Patient 14:15:19 CDT Baltazar Childers MD [facility] CPT-80701 Level 4 Est. Patient 12:20:13 CDT Baltazar Childers MD [facility] CPT-89185 Level 4 Est. Patient 14:52:45 [employer]ING PARTS SEW[employer] Baltazar Childers MD [facility] CPT-86843 Level 4 Est. Patient 14:18:34 [employer]ING [employer]S [employer] Baltazar Childers MD [facility] CPT-46108 Level 4 Est. Patient 15:18:29 CDT Baltazar Childers MD [facility] CPT-52066 Level 3 Est. Patient 12:45:34 CDT Baltazar Childers MD [facility] CPT-58125 Level 3 Est. Patient 10:10:11 CDT Baltazar Childers MD [facility] CPT-45855 Level 3 Est. Patient 14:07:50 CDT Baltazar Childers MD [facility] CPT-48311 Level 4 Est. Patient 12:26:10 [employer]ING [employer] Baltazar Childers MD [facility] CPT-62678 Level 4 Est. Patient 14:45:38 CDT Baltazar Childers MD [facility] CPT-43916 Level 4 New Patient 12:30:48 CDT Baltazar hinton MD [facility] Procedures Code Procedure Name Date Entry Date Standard Desc ription CPT-01085 Venipuncture Draw Fee 12:10:27 [employer] CPT-46512 Fluzone Quadrivalent Intramuscular Suspe nsion 0.5 ML 10:49:13 CDT CPT-50585 First Vx Component - Ix admi n via ID IM or jet inj without physician counseling 15:17:19 [employer]ING [employer] CPT-19632 Pneumovax 15:17:19 [employer]ING [employer] CPT-82245 Pneumovax 14:52:45 [employer] CPT-39772 Venipuncture Draw Fee 14:06:30 [employer] CPT-000 Give Appropriate Flu Vaccine 14:18:34 [employer]ING [employer] SE[employer] 2 CPT-92363 Administration single or combination vac cine inc oral 14:46:00 [employer]ING [employer]S SE[employer] CPT-53083 Influenza split virus > age 3 14:46:00 [employer]ING [employer]S [employer] CPT-OV Office Visit 19:13:16 CDT CPT-52638 Zostavax 18:41:56 CDT CPT-73138 Administration single or combination vac cine inc oral 12:56:39 CDT CPT-95361 Zoster Vaccine (Zostavax) 12:56:39 CDT 2012 CPT-54859 Venipuncture Draw Fee 10:58:57 CDT CPT-53354 Sono pelvis non OB uterus ovaries cervix 17:45:04 CDT CPT-38120 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
--- OUTSIDE RECORDS SUMMARY | 2019-10-27 12:21 | XMS REPORT | Clinical Summary ---
Author Author Abhishek, Elba Lance [facility] Address Unknown Phone Unavailable Allergies, Adverse Reactions, Alerts Allergy Name Reaction Description Start Date Severity Status Pr ovider ASPIRIN Critical Active Baltazar bynum MD PENICILLIN yeast infection Critical Active Baltazar Childers MD FISH Critical Active Baltazar bynmu MD CODEINE Critical Active Baltazar bynum MD 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 [employer] Benign neoplasm of colon PERIPHERAL NEUROPATHY [...] a day as needed 2014 NAPROXEN SODIUM 29020371670 Active Baltazar Childers MD Active FUROSEMIDE 40 MG TABS Take one by mouth daily FUROSEMIDE 26274977220 Active Baltazar Childers MD Active LISINOPRIL 20 MG TABS Take one by mouth daily at bedtime LISINOPRIL 23055286065 Active Baltazar Childers MD Active ONETOUCH ULTRA BLUE STRP Test twice a day GLUCO SE BLOOD 40804540186 No Longer Active Baltazar Childers MD Active TRUEPLUS LANCETS 33G MISC Test twice a day LANCET S 77085654451 Active Baltazar Childers MD Active TRUEDRAW LANCING DEVICE MISC Test twice a day L ANCET DEVICES 67521025638 Active Baltazar Childers MD Active TRUETRACK TEST STRP Test twice a day GLUCOSE BLOO D 99150287939 Active Baltazar Childers MD Active TRUETRACK BLOOD GLUCOSE W/DEVICE KIT Test twice a day BLOOD GLUCOSE MONITORING SUPPL 34680154164 Active Baltazar Childers MD Activ e HYDROCODONE-ACETAMINOPHEN 7.5-325 MG TABS Take 1 tab every 6-8 hour s PRN HYDROCODONE-ACETAMINOPHEN 38303494020 Active Baltazar Childers MD Active NORTRIPTYLINE HCL 50 MG CAPS 1 every night for neuropathy 4 NORTRIPTYLINE HCL 44115901178 Active Baltazar Childers MD Acti ve GABAPENTIN 300 MG CAPS 1 three times a day GABAPE NTIN 13554425259 Active Kelly Iraheta LPN Active GABAPENTIN 300 MG CAPS 1 po qd x 2 days, then 1 po BID x 2 d ays, then 1 po TID GABAPENTIN 71895091550 No Longer Active Baltazar silverman MD Active TRAMADOL HCL 50 MG TABS 1 twice a day as needed for pain TRAMADOL HCL 85289023424 Active Baltazar Childers MD Active NAPROXEN 500 MG TABS 1 tablet by mouth twice daily NAPROXEN 24786578661 No Longer Active Baltazar Childers MD Active PROAIR HFA 108 (90 BASE) MCG/ACT AERS 2 puffs four times a d ay as needed ALBUTEROL SULFATE 48370084815 Active Baltazar Childers MD Active DEPO-TESTOSTERONE 200 MG/ML OIL as directed RUFINO TOSTERONE CYPIONATE 44126716431 No Longer Active Baltazar Childers MD Active LIPITOR 20 MG TABS Take one by mouth daily in evening ATORVASTATIN CALCIUM 80675084864 No Longer Active Baltazar Childers MD Activ e CRESTOR 10 MG TABS 1 by mouth every day R OSUVASTATIN CALCIUM 53261641291 No Longer Active Baltazar Childers MD Activ e PHENTERMINE HCL 37.5 MG TABS Take one by mouth daily 2 PHENTERMINE HCL 75496939166 No Longer Active Baltazar Childers MD Activ e ROBAXIN-750 750 MG TABS Take one by mouth daily ME THOCARBAMOL 18457967215 Active Baltazar Childers MD Active TIZANIDINE HCL 4 MG TABS 1 daily as needed for muscle spasm 2011 TIZANIDINE HCL 45007204165 No Longer Active Dawna Salazar RN Active [id number] 50-325-40 MG TABS 1 four time s a day as needed for heacache [id number] 51872806710 Active Baltazar Childers MD Active SUMATRIPTAN SUCCINATE 100 MG TABS 1 tablet by mouth at onset of migraine as needed SUMATRIPTAN SUCCINATE 38639012136 Active Baltazar bynum MD Active LORATADINE 10 MG TABS Take one by mouth daily LORATADINE 53636947349 Active Baltazar Childers MD Active OMEPRAZOLE 20 MG CPDR Take one by mouth daily OMEPRAZOLE 69623842409 Active Baltazar Childers MD Active HYDROXYZINE HCL 25 MG TABS Take one by mouth daily HYDROXYZINE HCL 39149095691 Active Dawna Lew Active GLIPIZIDE 10 MG TABS 1 tablet by mouth twice daily GLIPIZIDE 17788192666 Active Baltazar Childers MD Active ALPRAZOLAM 1 MG TABS 1 tablet by mouth daily at bedtime for restles s leg ALPRAZOLAM 14532103164 Active Baltazar Childers MD Active METFORMIN HCL 1000 MG TABS Take one by mouth twice daily METFORMIN HCL 51103665550 Active Baltazar Childers MD Active TIZANIDINE HCL 4 MG TABS 1 daily as needed for muscle spasm 2011 TIZANIDINE HCL 4 MG TABS 591111 TIZANIDINE HCL Inactiv e PHENTERMINE HCL 37.5 MG TABS Take one by mouth daily 2 PHENTERMINE HCL 37.5 MG TABS 959443 PHENTERMINE HCL Inactive CRESTOR 10 MG TABS 1 by mouth every day C RESTOR 10 MG TABS ROSUVASTATIN CALCIUM Inactive LIPITOR 20 MG TABS Take one by mouth daily in evening LIPITOR 20 MG TABS 973049 ATORVASTATIN CALCIUM Inactive DEPO-TESTOSTERONE 200 MG/ML OIL as directed 8 DEPO-TESTOSTERONE 200 MG/ML OIL 316619 TESTOSTERONE CYPIONATE Inactive NAPROXEN 500 MG TABS 1 tablet by mouth twice daily 201 07/27/22 NAPROXEN 500 MG TABS 936604 NAPROXEN Inactive GABAPENTIN 300 MG CAPS 1 po qd x 2 days, then 1 po BID x 2 d ays, then 1 po TID GABAPENTIN 300 MG CAPS 769916 GABAPENTIN Inact amie ONETOUCH ULTRA BLUE STRP Test twice a day ONETOUCH ULTRA BLUE STRP GLUCOSE BLOOD Inactive Immunizations Vaccine Administration Date Value Standard Floyd cription pneumococcal immunization administered Pneumovax 23 [CVX33] pneumococcal polysaccharide vaccine, 23 valent Seasonal influenza vaccine, injectable, containing preservative, for > 3 years old (Afluria, FluLaval, Fluzone, Fluvirin, Fluarix, Agriflu(>= 18 yo)) Fluzone (>3 yrs.) [[id number]] Influenza, seasonal, inject able Seasonal influenza vaccine, injectable, containing preservative, for > 3 years old (Afluria, FluLaval, Fluzone, Fluvirin, Fluarix, Agriflu(>= 18 yo)) Fluzone (>3 yrs.) [[id number]] Influenza, seasonal, inject able Vital Signs Date [...] - 3141-9 229.8 [lb_av] Weigh t Measured Diagnostic Results Date Name Value Unit Range Description Lab Report: Basic Metabolic Panel - Chem istry sodium, serum 140 mmol/L 810-633 2724/05/05 potassium, serum 4.9 mmol/L 3.5-5.2 chloride, serum 99 mmol/L 98-107 carbon dioxide, venous blood 34.3 mmol/L 21.0-32 .0 blood glucose 132 mg/dL 65-110 calcium, serum 10.1 mg/dL 8.5-10.1 urea nitrogen, blood 23 mg/dL 7-18 creatinine, serum 2.00 mg/dL 0.60-1.30 Lab Report: CBC, Renal Panel - Chemistry sodium, serum 139 mmol/L 235-604 6605/01/20 potassium, serum 5.3 mmol/L 3.5-5.2 chloride, serum [...] 4.3-6.0 Encounters Code Encounter Date Provider Facility CPT-53106 Level 4 Est. Patient 15:42:12 CDT Baltazar Childers MD [facility] CPT-47565 Level 4 Est. Patient 11:29:55 CDT Baltazar Childers MD [facility] CPT-09274 Level 4 Est. Patient 14:15:19 CDT Baltazar Childers MD [facility] CPT-03486 Level 4 Est. Patient 12:20:13 CDT Baltazar Childers MD [facility] CPT-43409 Level 4 Est. Patient 14:52:45 PASTRY COOK Baltazar Childers MD [facility] CPT-67660 Level 4 Est. Patient 14:18:34 PASTRY COOK Baltazar Childers MD [facility] CPT-47527 Level 4 Est. Patient 15:18:29 CDT Baltazar Childers MD [facility] CPT-49462 Level 3 Est. Patient 12:45:34 CDT Baltazar Childers MD [facility] CPT-99079 Level 3 Est. Patient 10:10:11 CDT Baltazar Childers MD [facility] CPT-01051 Level 3 Est. Patient 14:07:50 CDT Baltazar Childers MD [facility] CPT-50054 Level 4 Est. Patient 12:26:10 PASTRY COOK Baltazar Childers MD [facility] CPT-59866 Level 4 Est. Patient 14:45:38 CDT Baltazar Childers MD [facility] CPT-88102 Level 4 New Patient 12:30:48 CDT Baltazar hinton MD [facility] Procedures Code Procedure Name Date Entry Date Standard Desc ription CPT-35637 Venipuncture Draw Fee 12:10:27 PASTRY COOK CPT-93648 Fluzone Quadrivalent Intramuscular Suspe nsion 0.5 ML 10:49:13 CDT CPT-73205 First Vx Component - Ix admi n via ID IM or jet inj without physician counseling 15:17:19 PASTRY COOK CPT-42638 Pneumovax 23 15:17:19 PASTRY COOK CPT-10875 Pneumovax 14:52:45 PASTRY COOK CPT-29605 Venipuncture Draw Fee 14:06:30 PASTRY COOK CPT-000 Give Appropriate Flu Vaccine 14:18:34 PASTRY COOK 2 CPT-52247 Administration single or combination vac cine inc oral 14:46:00 PASTRY COOK CPT-18815 Influenza split virus > age 3 14:46:00 PASTRY COOK CPT-OV Office Visit 19:13:16 CDT CPT-30420 Zostavax 18:41:56 CDT CPT-27173 Administration single or combination vac cine inc oral 12:56:39 CDT CPT-79349 Zoster Vaccine (Zostavax) 12:56:39 CDT 2012 CPT-45576 Venipuncture Draw Fee 10:58:57 CDT CPT-79633 Sono pelvis non OB uterus ovaries cervix 17:45:04 CDT CPT-19516 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
--- OUTSIDE RECORDS SUMMARY | 2019-10-27 12:21 | XMS REPORT | Clinical Summary ---
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 Benign neoplasm of colon PERIPHERAL NEUROPATHY 356.9 [...] three times a day 201 12/03/26 GABAPENTIN 03239524283 No Longer Active Baltazar Childers MD Activ e LISINOPRIL 20 MG ORAL TABLET 1 tablet by mouth daily at night 2016 LISINOPRIL 78857233545 Active Baltazar Childers MD Active ZITHROMAX Z-ISAIAS 250 MG ORAL TABLET Take two tablets to day and then 1 tablet daily for 4 days AZITHROMYCIN 52935738570 No Longer A ctive Baltazar Childers MD Active LANTUS SOLOSTAR 100 UNIT/ML SUBCUTANEOUS SOLUTION PEN- INJECTOR 30 units SC daily INSULIN GLARGINE 11356834219 Active Baltazar Childers MD Active AMLODIPINE BESYLATE 5 MG ORAL TABLET 1 tab daily for HTN AMLODIPINE BESYLATE 07848511913 Active Baltazar Childers MD Active SYNTHROID 100 MCG ORAL TABLET 1 tablet by mouth daily LEVOTHYROXINE SODIUM 21633142115 Active Baltazar Childers MD Active GLIPIZIDE 10 MG ORAL TABLET take 2 tablets twice daily GLIPIZIDE 08139207371 Active Baltazar Childers MD Active SUCRALFATE 1 GM ORAL TABLET 1 four times a day to coat the stoma ch SUCRALFATE 02613429467 No Longer Active Baltazar Childers MD Active PEN NEEDLES 31G X 6 MM use 1 daily INSULIN PEN NE EDLE 67914999271 Active KENDALL Juarez Active CELINA POWERSOSTNAKITA 300 UNIT/ML SUBCUTANEOUS SOLUTION PEN- INJECTOR 10 units SC daily INSULIN GLARGINE 81405998506 No Longer Active Rola Godinez RMA Active NAPROXEN SODIUM 220 MG ORAL TABLET 1 three times a day as needed NAPROXEN SODIUM 01845111039 No Longer Active Baltazar Childers MD Active ATORVASTATIN CALCIUM 20 MG ORAL TABLET Take 1 tab daily ATORVASTATIN CALCIUM 71612641637 Active Baltazar Childers MD A ctive FUROSEMIDE 40 MG ORAL TABLET Take one by mouth daily FUROSEMIDE 43189596712 Active Jessy Arellano LPN Active LISINOPRIL 20 MG ORAL TABLET Take one by mouth daily at bedtime LISINOPRIL 51696583479 No Longer Active Baltazar Childers MD Active ONETOUCH ULTRA BLUE IN VITRO STRIP Test twice a day 07/11/11 GLUCOSE BLOOD 21862270428 No Longer Active Baltazar Childers MD Acti ve TRUEPLUS LANCETS 33G Test twice a day LANCETS 1896688 9453 Active KENDALL Juarez Active TRUEDRAW LANCING DEVICE Test twice a day LANCET DEVICES 14175586953 Active Baltazar Childers MD Active TRUETRACK TEST IN VITRO STRIP Test twice a day GLUCOSE BLOOD 54684372945 Active KENDALL Juarez Active TRUETRACK BLOOD GLUCOSE w/Device KIT Test twice a day BLOOD GLUCOSE MONITORING SUPPL 52994146107 Active Baltazar Childers MD Activ e HYDROCODONE-ACETAMINOPHEN 7.5-325 MG ORAL TABLET Take 1 tab every 6-8 hours PRN HYDROCODONE-ACETAMINOPHEN 02344837837 Active Baltazar Nickerson MD Active NORTRIPTYLINE HCL 50 MG ORAL CAPSULE 1 every night for neuropathy 2 NORTRIPTYLINE HCL 10454962478 Active Baltazar Childers MD Acti ve GABAPENTIN 300 MG ORAL CAPSULE 1 po qd x 2 days, then 1 po BID x 2 days, then 1 po TID GABAPENTIN 57363401205 No Longer Active Baltazar Childers MD Active TRAMADOL HCL 50 MG ORAL TABLET 1 twice a day as needed for pain 201 07/27/28 TRAMADOL HCL 04174854458 Active Baltazar Childers MD Active NAPROXEN 500 MG ORAL TABLET 1 tablet by mouth twice daily NAPROXEN 49669175791 No Longer Active Baltazar Childers MD Active PROAIR HFA 108 (90 Base) MCG/ACT INHALATION AEROSOL SO LUTION 2 puffs four times a day as needed ALBUTEROL SULFATE 37172086994 Active KENDALL Bowie Active DEPO-TESTOSTERONE 200 MG/ML INTRAMUSCULAR SOLUTION as directed TESTOSTERONE CYPIONATE 07522429150 No Longer Active Baltazar Childers MD Active LIPITOR 20 MG ORAL TABLET Take one by mouth daily in evening ATORVASTATIN CALCIUM 07755944496 No Longer Active Baltazar Childers MD Active CRESTOR 10 MG ORAL TABLET 1 by mouth every day ROSUVASTATIN CALCIUM 95171658614 No Longer Active Baltazar Childers MD Active PHENTERMINE HCL 37.5 MG ORAL TABLET Take one by mouth daily PHENTERMINE HCL 85079920817 No Longer Active Baltazar Childers MD Ac tive ROBAXIN-750 750 MG ORAL TABLET Take one by mouth daily METHOCARBAMOL 02616578006 Active Baltazar Childers MD Active TIZANIDINE HCL 4 MG ORAL TABLET 1 daily as needed for muscle spa sm TIZANIDINE HCL 17510234077 No Longer Active Dawna Salazar RN Active [id number]-ZOER-DSAZOKDS 50-325-40 MG ORAL TABLET 1 fo ur times a day as needed for heacache LYGUVQGYEF-MVCL-FVXMHCAT 06026471417 Active Baltazar Childers MD Active SUMATRIPTAN SUCCINATE 100 MG ORAL TABLET 1 tablet by m outh at onset of migraine as needed SUMATRIPTAN SUCCINATE 09772581493 Active KENDALL Restrepo Active LORATADINE 10 MG ORAL TABLET Take one by mouth daily LORATADINE 32375274111 Active Baltazar Childers MD Active OMEPRAZOLE 20 MG ORAL CAPSULE DELAYED RELEASE Take one by mouth jostin ly OMEPRAZOLE 44055243718 Active Baltazar Childers MD Active HYDROXYZINE HCL 25 MG ORAL TABLET Take one by mouth daily HYDROXYZINE HCL 50114401233 Active KENDALL Juarez Active ALPRAZOLAM 1 MG ORAL TABLET 1 tablet [facility] ALPRAZOLAM 03842009312 Active Baltazar Childers MD Active METFORMIN HCL 1000 MG ORAL TABLET Take one by mouth twice daily METFORMIN HCL 89078412696 Active Baltazar Childers MD Active TIZANIDINE HCL 4 MG ORAL TABLET 1 daily as needed for muscle spa sm TIZANIDINE HCL 4 MG ORAL TABLET 636280 TIZANIDINE HCL Inactive PHENTERMINE HCL 37.5 MG ORAL TABLET Take one by mouth daily PHENTERMINE HCL 37.5 MG ORAL TABLET 603547 PHENTERMINE HCL Inac tive CRESTOR 10 MG ORAL TABLET 1 by mouth every day CRESTOR 10 MG ORAL TABLET 312749 ROSUVASTATIN CALCIUM Inactive LIPITOR 20 MG ORAL TABLET Take one by mouth daily in evening LIPITOR 20 MG ORAL TABLET 132020 ATORVASTATIN CALCIUM Inactive DEPO-TESTOSTERONE 200 MG/ML INTRAMUSCULAR SOLUTION as directed DEPO-TESTOSTERONE 200 MG/ML INTRAMUSCULAR SOLUTION 089392 RUFINO TOSTERONE CYPIONATE Inactive NAPROXEN 500 MG ORAL TABLET 1 tablet by mouth twice daily NAPROXEN 500 MG ORAL TABLET 767669 NAPROXEN Inactive GABAPENTIN 300 MG ORAL CAPSULE 1 po qd x 2 days, then 1 po BID x 2 days, then 1 po TID GABAPENTIN 300 MG ORAL CAPSULE 884924 GABAP ENTIN Inactive ONETOUCH ULTRA BLUE IN VITRO STRIP Test twice a day 07/11/11 ONETOUCH ULTRA BLUE IN VITRO STRIP GLUCOSE BLOOD Inact amie NAPROXEN SODIUM 220 MG ORAL TABLET 1 three times a day as needed NAPROXEN SODIUM 220 MG ORAL TABLET 041174 NAPROXEN SODI UM Inactive TOUJEO SOLOSTAR 300 UNIT/ML SUBCUTANEOUS SOLUTION PEN- INJECTOR 10 units SC daily TOUJEO SOLOSTAR 300 UNIT/ML SUBCUTANEOUS SOLUTION PEN-INJECTOR INSULIN GLARGINE Inactive SUCRALFATE 1 GM ORAL TABLET 1 four times a day to coat the stoma ch SUCRALFATE 1 GM ORAL TABLET 246633 SUCRALFATE Inac tive GABAPENTIN 300 MG ORAL CAPSULE 1 three times a day 201 12/03/26 GABAPENTIN 300 MG ORAL CAPSULE 295422 GABAPENTIN Inactive ZITHROMAX Z-ISAIAS 250 MG ORAL TABLET Take two tablets to day and then 1 tablet daily for 4 days ZITHROMAX Z-ISAIAS 250 MG ORAL TAB LET 563585 AZITHROMYCIN Inactive Immunizations Vaccine Administration Date Value Standard Floyd cription pneumococcal immunization administered Pneumovax 23 [CVX33] pneumococcal polysaccharide vaccine, 23 valent Seasonal influenza vaccine, injectable, containing preservative, for > 3 years old (Afluria, FluLaval, Fluzone, Fluvirin, Fluarix, Agriflu(>= 18 yo)) Fluzone (>3 yrs.) [CFI875] Influenza, seasonal, inject able Seasonal influenza vaccine, injectable, containing preservative, for > 3 years old (Afluria, FluLaval, Fluzone, Fluvirin, Fluarix, Agriflu(>= 18 yo)) Fluzone (>3 yrs.) [PNR936] Influenza, seasonal, inject able Vital Signs Date [...] - Chem istry sodium, serum 139 mmol/L 328-824 6412/10/03 urea nitrogen, blood 19 mg/dL 7-18 creatinine, serum 1.68 mg/dL 0.60-1.30 potassium, serum 4.7 mmol/L 3.5-5.2 chloride, serum 98 mmol/L 98-107 carbon dioxide, venous blood 28.7 mmol/L 21.0-32 .0 blood glucose 218 mg/dL 65-110 calcium, serum 9.8 mg/dL 8.5-10.1 Lab Report: Basic Metabolic Panel, HGBA1 C - Chemistry sodium, serum 143 mmol/L 893-677 5354/06/19 potassium, serum 5.9 mmol/L 3.5-5.2 chloride, serum 105 mmol/L 98-107 carbon dioxide, venous blood 30.2 mmol/L 21.0-32 .0 blood glucose 189 mg/dL 65-110 calcium, serum 9.7 mg/dL 8.5-10.1 urea nitrogen, blood 37 mg/dL 7-18 creatinine, serum 2.11 mg/dL 0.55-1.30 hemoglobin A1C, blood, as % of total hemoglobin 8.2 % 4.3-6.0 Lab Report: CBC, Renal Panel - Chemistry sodium, serum 142 mmol/L 041-402 0935/08/11 potassium, serum 4.8 mmol/L 3.5-5.2 chloride, serum 103 mmol/L 98-107 carbon dioxide, venous blood 38.7 mmol/L 21.0-32 .0 creatinine, serum 1.69 mg/dL 0.60-1.30 blood glucose 179 mg/dL 65-110 urea nitrogen, blood 20 mg/dL 7-18 calcium, serum 9.9 mg/dL 8.5-10.1 Lab Report: CBC, Renal Panel - Hematolog y hematocrit, blood 38.4 % 37.0-47.0 mean corpuscular volume, RBC 96 fL 80-97 mean corpuscular hemoglobin, RBC 31.1 pg 27. 0-31.2 mean corpuscular hemoglobin concentration, RBC 32.5 G/DL % 31.8-35.4 red blood cell distribution width 14.4 % 11 .6-14.8 platelet count 304 10^3/MM^3 10*3/mm3 977-215 5277/08/11 hemoglobin, blood 12.5 g/dL 12.0-16.0 erythrocyte (RBC) count 4.02 10^6/MM^3 10*6/mm3 3.80-5.8 0 leukocyte count, blood 7.2 10^3/MM^3 10*3/mm3 4.6-10.2 Lab Report: HEMOGLOBIN A1c, MicroAlb Ran dom w/creat/6517, Urinalysis, Co ... - Urinalysis microalbumin/creatinine ratio, urine 24 MCG/MG CREAT mg/L <30 microalbumin/total urine volume 9 mg/L Units converted. See lab report for original value. Lab Report: HGBA1C - Chemistry hemoglobin A1C, blood, as % of total hemoglobin 8.2 % 4.3-6.0 Lab Report: Lipid Panel, Thyroid Stimula ting Hormone (L) - Chemistry cholesterol, serum 209 mg/dL 551-640 6888/12/27 triglyceride, serum, fasting 329 mg/dL 30-200 HDL cholesterol, serum 56 mg/dL 32-60 LDL cholesterol, serum 87 mg/dL 0-130 TSH 3.60 m[iU]/mL 0.36-3.74 Encounters Code Encounter Date Provider Facility CPT-46244 Level 4 Est. Patient 16:21:19 ROUTE MANAGER Baltazar Childers MD [facility] CPT-69904 Level 4 Est. Patient 12:25:11 CDT Baltazar Childers MD [facility]-47651 Level 4 Est. Patient 14:22:31 CDT Baltazar Childers MD [facility]-78474 Level 4 Est. Patient 15:44:38 CDT Shonnajean Parker APRN [facility]-25859 Level 4 Est. Patient 11:34:17 CDT Baltazar Childers MD [facility]-46625 Level 3 Est. Patient 16:40:40 CDT Baltazar Childers MD [facility]-74105 Level 4 Est. Patient 10:41:24 CDT Baltazar Childers MD [facility]-69434 Level 4 Est. Patient 16:01:48 CDT Baltazar Childers MD [facility]-26773 Level 4 Est. Patient 16:54:07 ROUTE MANAGER Baltazar Childers MD [facility]78265 Level 4 Est. Patient 15:42:12 CDT Baltazar Childers MD [facility] CPT-70017 Level 4 Est. Patient 11:29:55 CDT Baltazar Childers MD [facility]-09201 Level 4 Est. Patient 14:15:19 CDT Baltazar Childers MD [facility]-39251 Level 4 Est. Patient 12:20:13 CDT Baltazar Childers MD [facility]-53023 Level 4 Est. Patient 14:52:45 ROUTE MANAGER Baltazar Childers MD [facility]-40489 Level 4 Est. Patient 14:18:34 ROUTE MANAGER Baltazar Childers MD [facility]-41189 Level 4 Est. Patient 15:18:29 CDT Baltazar Childers MD [facility]-70505 Level 3 Est. Patient 12:45:34 CDT Baltazar Childers MD [facility] CPT-29001 Level 3 Est. Patient 10:10:11 CDT Baltazar Childers MD [facility] CPT-63885 Level 3 Est. Patient 14:07:50 CDT Baltazar Childers MD [facility] CPT-59214 Level 4 Est. Patient 12:26:10 ROUTE MANAGER Baltazar Childers MD [facility] CPT-24041 Level 4 Est. Patient 14:45:38 CDT Baltazar Childers MD [facility] CPT-45659 Level 4 New Patient 12:30:48 CDT Baltazar hinton MD [facility] Procedures Code Procedure Name Date Entry Date Standard Desc ription CPT-30263 First Vx - Ix admin via ID I M or jet injects without counseling by physician 13:08:59 CDT CPT-46369 Fluzone Quadrivalent Intramuscular Suspe nsion 0.5 ML 13:08:59 CDT CPT-84462 Venipuncture Draw Fee 12:04:12 CDT CPT-26644 Lipid - LAB USE ONLY 17:39:15 ROUTE MANAGER 9 CPT-96747 HGBA1C - LAB USE ONLY 17:39:15 ROUTE MANAGER CPT-68494 CMP - LAB USE ONLY 17:39:14 ROUTE MANAGER CPT-33724 Venipuncture Draw Fee 17:39:14 ROUTE MANAGER CPT-38384 First Vx - Ix admin via ID I M or jet injects without counseling by physician 16:55:17 ROUTE MANAGER CPT-64882 Fluzone Quadrivalent Intramuscular Suspe nsion 0.5 ML 16:55:17 ROUTE MANAGER CPT-86662 Renal Panel - LAB USE ONLY 17:39:20 CDT 201 10/31/07 CPT-39387 CBC - LAB USE ONLY 17:39:20 CDT CPT-34994 Venipuncture Draw Fee 17:39:20 CDT CPT-00439 Venipuncture Draw Fee 14:33:30 CDT CPT-02724 Renal Panel - LAB USE ONLY 14:33:30 CDT 201 10/31/07 CPT-26606 CBC - LAB USE ONLY 14:33:29 CDT CPT-74198 Venipuncture Draw Fee 14:50:21 ROUTE MANAGER CPT-19396 Immunization Single Admin 17:35:35 CDT 2014 CPT-75085 Fluzone Quadrivalent preservative free ( >=3yrs.) 17:35:35 CDT CPT-58021 Venipuncture Draw Fee 12:10:27 ROUTE MANAGER CPT-94574 Fluzone Quadrivalent Intramuscular Suspe nsion 0.5 ML 10:49:13 CDT CPT-48516 First Vx Component - Ix admi n via ID IM or jet inj without physician counseling 15:17:19 ROUTE MANAGER CPT-05713 Pneumovax 23 15:17:19 ROUTE MANAGER CPT-86922 Pneumovax 14:52:45 ROUTE MANAGER CPT-55157 Venipuncture Draw Fee 14:06:30 ROUTE MANAGER CPT-000 Give Appropriate Flu Vaccine 14:18:34 ROUTE MANAGER 2 CPT-80016 Administration single or combination vac cine inc oral 14:46:00 ROUTE MANAGER CPT-52283 Influenza split virus > age 3 14:46:00 ROUTE MANAGER CPT-OV Office Visit 19:13:16 CDT CPT-42119 Zostavax 18:41:56 CDT CPT-39468 Administration single or combination vac cine inc oral 12:56:39 CDT CPT-51894 Zoster Vaccine (Zostavax) 12:56:39 CDT 2012 CPT-31474 Venipuncture Draw Fee 10:58:57 CDT CPT-69580 Sono pelvis non OB uterus ovaries cervix 17:45:04 CDT CPT-87915 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
--- OUTSIDE RECORDS SUMMARY | 2019-10-27 12:22 | XMS REPORT | Clinical Summary ---
Author Author Abhishek, Elba Lance [facility] Address Unknown Phone Unavailable Allergies, Adverse [...] Comment Standard Description Annotate ASTHMA 493.90 Active Baltazra Childers MD Asthma, unspecified DEGENERATIVE DISC DISEASE, 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 IS CONSULTANT Benign neoplasm of colon PERIPHERAL NEUROPATHY [...] ronary atherosclerosis of unspecified type of vessel, [place] cro[place] or graft OTH NONSPC ABN FINDNG RAD&OTH [...] MISC Test twice a day LANCET S 00587278400 Active Baltazar Childers MD Active TRUEDRAW LANCING DEVICE MISC Test twice a day L ANCET DEVICES 25513664296 Active Baltazar Childers MD Active TRUETRACK TEST STRP Test twice a day GLUCOSE BLOO D 75352662217 Active Baltazar Childers MD Active TRUETRACK BLOOD GLUCOSE W/DEVICE KIT Test twice a day BLOOD GLUCOSE MONITORING SUPPL 15708133027 Active Bella Suarez IS CONSULTANT Active HYDROCODONE-ACETAMINOPHEN 7.5-325 MG TABS Take 1 tab every 6-8 hour s PRN HYDROCODONE-ACETAMINOPHEN 12246137410 Active Baltazar Childers MD Active NORTRIPTYLINE HCL 50 MG CAPS 1 every night for neuropathy 4 NORTRIPTYLINE HCL 93528072888 Active Baltazar Childers MD Acti ve GABAPENTIN 300 MG CAPS 1 three times a day GABAPE NTIN 65411738588 Active Baltazar Childers MD Active GABAPENTIN 300 MG CAPS 1 po qd x 2 days, then 1 po BID x 2 d ays, then 1 po TID GABAPENTIN 88821247923 No Longer Active Baltazar silverman MD Active TRAMADOL HCL 50 MG TABS 1 twice a day as needed for pain TRAMADOL HCL 47001898087 Active Baltazar Childers MD Active NAPROXEN 500 MG TABS 1 tablet by mouth twice daily NAPROXEN 07093833005 No Longer Active Baltazar Childers MD Active PROAIR HFA 108 (90 BASE) MCG/ACT AERS 2 puffs four times a d ay as needed ALBUTEROL SULFATE 39483055049 Active Baltazar Childers MD Active DEPO-TESTOSTERONE 200 MG/ML OIL as directed RUFINO TOSTERONE CYPIONATE 80160081732 No Longer Active Baltazar Childers MD Active LIPITOR 20 MG TABS Take one by mouth daily in evening ATORVASTATIN CALCIUM 65785947572 No Longer Active Baltazar Childers MD Activ e CRESTOR 10 MG TABS 1 by mouth every day R OSUVASTATIN CALCIUM 46017533622 No Longer Active Baltazar Childers MD Activ e PHENTERMINE HCL 37.5 MG TABS Take one by mouth daily 2 PHENTERMINE HCL 16334376103 No Longer Active Baltazar Childers MD Activ e ROBAXIN-750 750 MG TABS Take one by mouth daily ME THOCARBAMOL 76884064679 Active Baltazar Childers MD Active TIZANIDINE HCL 4 MG TABS 1 daily as needed for muscle spasm 2011 TIZANIDINE HCL 53940100254 No Longer Active Dawna Salazar RN Active ONETOUCH ULTRA BLUE STRP Test twice a day GLUCO SE BLOOD 58630640692 Active Baltazar Childers MD Active ABSLJLOEGM-MWIE-UQEDODAR 50-325-40 MG TABS 1 four time s a day as needed for heacache BOCXYNVRRL-CVTX-OHTSDTDT 74811354861 Active Baltazar Childers MD Active SUMATRIPTAN SUCCINATE 100 MG TABS 1 tablet by mouth at onset of migraine as needed SUMATRIPTAN SUCCINATE 88238806628 Active Baltazar barron MD Active LORATADINE 10 MG TABS Take one by mouth daily LORATADINE 24563379945 Active Baltazar Childers MD Active FUROSEMIDE 40 MG TABS Take one by mouth daily FUROSEMIDE 38930641690 Active Baltazar Childers MD Active LISINOPRIL 20 MG TABS Take one by mouth daily at bedtime LISINOPRIL 27717861420 Active Baltazar Childers MD Active OMEPRAZOLE 20 MG CPDR Take one by mouth daily OMEPRAZOLE 04458463113 Active Baltazar Childers MD Active HYDROXYZINE HCL 25 MG TABS Take one by mouth daily HYDROXYZINE HCL 58165551593 Active Baltazar Childers MD Active GLIPIZIDE 10 MG TABS 1 tablet by mouth twice daily GLIPIZIDE 38181977348 Active Baltazar Childers MD Active ALPRAZOLAM 1 MG TABS 1 tablet by mouth daily at bedtime for restles s leg ALPRAZOLAM 95220820217 Active Baltazar Childers MD Active METFORMIN HCL 1000 MG TABS Take one by mouth twice daily METFORMIN HCL 29291376283 Active Baltazar Childers MD Active TIZANIDINE HCL 4 MG TABS 1 daily as needed for muscle spasm 2011 TIZANIDINE HCL 4 MG TABS 720775 TIZANIDINE HCL Inactiv e PHENTERMINE HCL 37.5 MG TABS Take one by mouth daily 2 PHENTERMINE HCL 37.5 MG TABS 763368 PHENTERMINE HCL Inactive CRESTOR 10 MG TABS 1 by mouth every day C RESTOR 10 MG TABS ROSUVASTATIN CALCIUM Inactive LIPITOR 20 MG TABS Take one by mouth daily in evening LIPITOR 20 MG TABS 773870 ATORVASTATIN CALCIUM Inactive DEPO-TESTOSTERONE 200 MG/ML OIL as directed 8 DEPO-TESTOSTERONE 200 MG/ML OIL 199600 TESTOSTERONE CYPIONATE Inactive NAPROXEN 500 MG TABS 1 tablet by mouth twice daily 201 07/27/22 NAPROXEN 500 MG TABS 961646 NAPROXEN Inactive GABAPENTIN 300 MG CAPS 1 po qd x 2 days, then 1 po BID x 2 d ays, then 1 po TID GABAPENTIN 300 MG CAPS 150495 GABAPENTIN Inact amie Immunizations Vaccine Administration Date Value Standard Floyd cription pneumococcal immunization administered Pneumovax 23 [CVX33] pneumococcal polysaccharide vaccine, 23 valent Seasonal influenza vaccine, injectable, containing preservative, for > 3 years old (Afluria, FluLaval, Fluzone, Fluvirin, Fluarix, Agriflu(>= 18 yo)) Fluzone (>3 yrs.) [HWH150] Influenza, seasonal, inject able Seasonal influenza vaccine, injectable, containing preservative, for > 3 years old (Afluria, FluLaval, Fluzone, Fluvirin, Fluarix, Agriflu(>= 18 yo)) Fluzone (>3 yrs.) [CTM919] Influenza, seasonal, inject able Vital Signs Date [...] - Chem istry sodium, serum 140 mmol/L 319-783 5312/05/05 potassium, serum 4.9 mmol/L 3.5-5.2 chloride, serum [...] Panel - Chemistry sodium, serum 139 mmol/L 848-672 7175/01/20 potassium, serum 5.3 mmol/L 3.5-5.2 chloride, serum [...] mg/g mg/g{creat} 0-29 cholesterol, serum 319 mg/dL 767-713 7895/08/21 triglyceride, serum, fasting 546 mg/dL 30-200 HDL cholesterol, serum 39 mg/dL 32-96 LDL cholesterol, serum 167.00 mg/dL 5.00-130.00 hemoglobin A1C, blood, as % of total hemoglobin 7.7 % 4.3-6.0 sodium, serum 138 mmol/L 756-340 9959/08/21 potassium, serum 4.3 mmol/L 3.5-5.2 chloride, serum [...] 0-19 Encounters Code Encounter Date Provider Facility CPT-13618 Level 4 Est. Patient 11:29:55 CDT Baltazar Childers MD [facility] CPT-99461 Level 4 Est. Patient 14:15:19 CDT Baltazar Childers MD [facility] CPT-82967 Level 4 Est. Patient 12:20:13 CDT Baltazar Childers MD [facility] CPT-15680 Level 4 Est. Patient 14:52:45 SIDE BOSS Baltazar Childers MD [facility] CPT-84889 Level 4 Est. Patient 14:18:34 SIDE BOSS Baltazar Childers MD [facility] CPT-68735 Level 4 Est. Patient 15:18:29 CDT Baltazar Childers MD [facility] CPT-40396 Level 3 Est. Patient 12:45:34 CDT Baltazar Childers MD [facility] CPT-55382 Level 3 Est. Patient 10:10:11 CDT Baltazar Childers MD [facility] CPT-04748 Level 3 Est. Patient 14:07:50 CDT Baltazar Childers MD [facility] CPT-21801 Level 4 Est. Patient 12:26:10 SIDE BOSS Baltazar Childers MD [facility] CPT-36871 Level 4 Est. Patient 14:45:38 CDT Baltazar Childers MD [facility] CPT-70005 Level 4 New Patient 12:30:48 CDT Baltazar hinton MD [facility] Procedures Code Procedure Name Date Entry Date Standard Desc ription CPT-96934 Venipuncture Draw Fee 12:10:27 SIDE BOSS CPT-19525 Fluzone Quadrivalent Intramuscular Suspe nsion 0.5 ML 10:49:13 CDT CPT-03466 First Vx Component - Ix admi n via ID IM or jet inj without physician counseling 15:17:19 SIDE BOSS CPT-63450 Pneumovax 15:17:19 SIDE BOSS CPT-27570 Pneumovax 14:52:45 SIDE BOSS CPT-82168 Venipuncture Draw Fee 14:06:30 SIDE BOSS CPT-000 Give Appropriate Flu Vaccine 14:18:34 SIDE BOSS 2 CPT-04420 Administration single or combination vac cine inc oral 14:46:00 SIDE BOSS CPT-08008 Influenza split virus > age 3 14:46:00 SIDE BOSS CPT-OV Office Visit 19:13:16 CDT CPT-55243 Zostavax 18:41:56 CDT CPT-24551 Administration single or combination vac cine inc oral 12:56:39 CDT CPT-24113 Zoster Vaccine (Zostavax) 12:56:39 CDT 2012 CPT-88998 Venipuncture Draw Fee 10:58:57 CDT CPT-51691 Sono pelvis non OB uterus ovaries cervix 17:45:04 CDT CPT-95891 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
--- OUTSIDE RECORDS SUMMARY | 2019-10-27 12:22 | XMS REPORT | Clinical Summary ---
[...] unspecified hyperlipidemia Familial hypercholesterolemia 272.4 Active 11/17 Batlazar Childers MD Other and unspecified hyperlipidemia CARPAL 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 [employer] Benign neoplasm of colon PERIPHERAL NEUROPATHY 356.9 Active Baltazar Nickerson MD Unspecified hereditary and idiopathic peripheral neuropathy PERSONAL HISTORY OF COLONIC POLYPS V12.72 Active 2 Lolis Thomas [employer] Personal history of colonic polyps PARESTHESIA, HANDS 782.0 Active Baltazar Childers MD Disturbance of skin sensation FH DIABETES V18.0 Active Baltazar Childers MD Family history of diabetes mellitus ANEMIA 285.9 Active Baltazar Childers MD Anemia, unspecified RENAL INSUFFICIENCY 593.9 Active Baltazar bynum MD Unspecified disorder of kidney and ureter CAD 414.00 Active Gladys Arce [facility] atherosclerosis of unspecified type of vessel, [place] or graft OTH NONSPC ABN FINDNG RAD&OTH EXM BODY STRUCTURE 793.99 11/08 Active Jessy Ruiz Other nonspecific (a bnormal) findings on radiological and other examinations of body structure NEED PROPH VACC&INOCULAT AGNST OTH SPEC DISEASE V05.8 Active Elba Ryan RMA Need for prophylacti c vaccination and [...] NDC Status Provider Patient Instruction TRUE METRIX BLOOD GLUCOSE TEST IN VITRO STRIP test blood sug ar BID Dx: E11.65 GLUCOSE BLOOD 32061915439 Active KENDALL Juarez Active NORTRIPTYLINE HCL 50 MG ORAL CAPSULE 1 twice a day for neuropathy 2 NORTRIPTYLINE HCL 53204724299 Active Baltazar Childers MD Acti ve ASPIRIN 81 MG TBEC Take one (1) tablet by mouth daily ASPIRIN 08544378983 Active Baltazar Childers MD Active GABAPENTIN 300 MG ORAL CAPSULE 1 three times a day 201 12/03/26 GABAPENTIN 41482947713 No Longer Active Baltazar Childers MD Activ e LISINOPRIL 20 MG ORAL TABLET 1 tablet by mouth daily at night 2016 LISINOPRIL 53477782594 Active Baltazar Childers MD Active ZITHROMAX Z-ISAIAS 250 MG ORAL TABLET Take two tablets to day and then 1 tablet daily for 4 days AZITHROMYCIN 99504508569 No Longer A ctive Baltazar Childers MD Active LANTUS SOLOSTAR 100 UNIT/ML SUBCUTANEOUS SOLUTION PEN- INJECTOR 30 units SC daily INSULIN GLARGINE 37782701293 Active Baltazar Childers MD Active AMLODIPINE BESYLATE 5 MG ORAL TABLET 1 tab daily for HTN AMLODIPINE BESYLATE 94068918367 Active Baltazar Childers MD Active SYNTHROID 100 MCG ORAL TABLET 1 tablet by mouth daily LEVOTHYROXINE SODIUM 59666858983 Active Baltazar Childers MD Active GLIPIZIDE 10 MG ORAL TABLET take 2 tablets twice daily GLIPIZIDE 23904305192 Active Baltazar Childers MD Active SUCRALFATE 1 GM ORAL TABLET 1 four times a day to coat the stoma ch SUCRALFATE 88879713298 No Longer Active Baltazar Childers MD Active PEN NEEDLES 31G X 6 MM use 1 daily INSULIN PEN NE EDLE 28665974005 Active KENDALL Juarez Active TOZULEIKA SOLOSTAR 300 UNIT/ML SUBCUTANEOUS SOLUTION PEN- INJECTOR 10 units SC daily INSULIN GLARGINE 78027590782 No Longer Active Rola Godinez KENDALL Active NAPROXEN SODIUM 220 MG ORAL TABLET 1 three times a day as needed NAPROXEN SODIUM 95140021323 No Longer Active Baltazar Childers MD Active ATORVASTATIN CALCIUM 20 MG ORAL TABLET Take 1 tab daily ATORVASTATIN CALCIUM 16535488355 Active Baltazar Childers MD A ctive FUROSEMIDE 40 MG ORAL TABLET Take one by mouth daily FUROSEMIDE 39663998391 Active Baltazar Childers MD Active LISINOPRIL 20 MG ORAL TABLET Take one by mouth daily at bedtime LISINOPRIL 46095817162 No Longer Active Baltazar Childers MD Active ONETOUCH ULTRA BLUE IN VITRO STRIP Test twice a day 07/11/11 GLUCOSE BLOOD 04384060511 No Longer Active Baltazar Childers MD Acti ve TRUEPLUS LANCETS 33G Test twice a day LANCETS 9266522 2873 Active KENDALL Juarez Active TRUEDRAW LANCING DEVICE Test twice a day LANCET DEVICES 10537989432 Active Baltazar Childers MD Active TRUETRACK BLOOD GLUCOSE w/Device KIT Test twice a day BLOOD GLUCOSE MONITORING SUPPL 22471883872 Active Baltazar Childers MD Activ e HYDROCODONE-ACETAMINOPHEN 7.5-325 MG ORAL TABLET Take 1 tab every 6-8 hours PRN HYDROCODONE-ACETAMINOPHEN 30278555012 Active Baltazar Nickerson MD Active GABAPENTIN 300 MG ORAL CAPSULE 1 po qd x 2 days, then 1 po BID x 2 days, then 1 po TID GABAPENTIN 40966827513 No Longer Active Baltazar Childers MD Active TRAMADOL HCL 50 MG ORAL TABLET 1 twice a day as needed for pain 201 07/27/28 TRAMADOL HCL 35781152584 Active Baltazar Childers MD Active NAPROXEN 500 MG ORAL TABLET 1 tablet by mouth twice daily NAPROXEN 73887262658 No Longer Active Baltazar Childers MD Active PROAIR HFA 108 (90 Base) MCG/ACT INHALATION AEROSOL SO LUTION 2 puffs four times a day as needed ALBUTEROL SULFATE 19966074983 Active R gilberto Childers MD Active DEPO-TESTOSTERONE 200 MG/ML INTRAMUSCULAR SOLUTION as directed TESTOSTERONE CYPIONATE 01335905241 No Longer Active Baltazar Childers MD Active LIPITOR 20 MG ORAL TABLET Take one by mouth daily in evening ATORVASTATIN CALCIUM 95860735311 No Longer Active Baltazar Childers MD Active CRESTOR 10 MG ORAL TABLET 1 by mouth every day ROSUVASTATIN CALCIUM 09606804262 No Longer Active Baltazar Childers MD Active PHENTERMINE HCL 37.5 MG ORAL TABLET Take one by mouth daily PHENTERMINE HCL 37601185572 No Longer Active Baltazar Childers MD Ac tive ROBAXIN-750 750 MG ORAL TABLET Take one by mouth daily METHOCARBAMOL 30967064242 Active KENDALL Juarez Active TIZANIDINE HCL 4 MG ORAL TABLET 1 daily as needed for muscle spa sm TIZANIDINE HCL 80152122196 No Longer Active Dawna Salazar RN Active [id number] 50-325-40 MG ORAL TABLET 1 fo ur times a day as needed for heacache [id number] 96975091532 Active Baltazar Childers MD Active SUMATRIPTAN SUCCINATE 100 MG ORAL TABLET 1 tablet by m outh at onset of migraine as needed SUMATRIPTAN SUCCINATE 55318528674 Active KENDALL Restrepo Active LORATADINE 10 MG ORAL TABLET Take one by mouth daily LORATADINE 03631712285 Active KENDALL Juarez Active OMEPRAZOLE 20 MG ORAL CAPSULE DELAYED RELEASE Take one by mouth jostin ly OMEPRAZOLE 34341098671 Active Baltazar Childers MD Active HYDROXYZINE HCL 25 MG ORAL TABLET Take one by mouth daily HYDROXYZINE HCL 74925580805 Active Baltazar Childers MD Active ALPRAZOLAM 1 MG ORAL TABLET 1 tablet by mouth daily at bedti me for restless leg ALPRAZOLAM 31277794604 Active Baltazar Childers MD Active METFORMIN HCL 1000 MG ORAL TABLET Take one by mouth twice daily METFORMIN HCL 03820034571 Active Baltazar Childers MD Active TIZANIDINE HCL 4 MG ORAL TABLET 1 daily as needed for muscle spa sm TIZANIDINE HCL 4 MG ORAL TABLET 264633 TIZANIDINE HCL Inactive PHENTERMINE HCL 37.5 MG ORAL TABLET Take one by mouth daily PHENTERMINE HCL 37.5 MG ORAL TABLET 486454 PHENTERMINE HCL Inac tive CRESTOR 10 MG ORAL TABLET 1 by mouth every day CRESTOR 10 MG ORAL TABLET 521761 ROSUVASTATIN CALCIUM Inactive LIPITOR 20 MG ORAL TABLET Take one by mouth daily in evening LIPITOR 20 MG ORAL TABLET 125585 ATORVASTATIN CALCIUM Inactive DEPO-TESTOSTERONE 200 MG/ML INTRAMUSCULAR SOLUTION as directed DEPO-TESTOSTERONE 200 MG/ML INTRAMUSCULAR SOLUTION 808064 RUFINO TOSTERONE CYPIONATE Inactive NAPROXEN 500 MG ORAL TABLET 1 tablet by mouth twice daily NAPROXEN 500 MG ORAL TABLET 943560 NAPROXEN Inactive GABAPENTIN 300 MG ORAL CAPSULE 1 po qd x 2 days, then 1 po BID x 2 days, then 1 po TID GABAPENTIN 300 MG ORAL CAPSULE 422198 GABAP ENTIN Inactive ONETOUCH ULTRA BLUE IN VITRO STRIP Test twice a day 07/11/11 ONETOUCH ULTRA BLUE IN VITRO STRIP GLUCOSE BLOOD Inact amie NAPROXEN SODIUM 220 MG ORAL TABLET 1 three times a day as needed NAPROXEN SODIUM 220 MG ORAL TABLET 713781 NAPROXEN SODI UM Inactive TOUJEO SOLOSTAR 300 UNIT/ML SUBCUTANEOUS SOLUTION PEN- INJECTOR 10 units SC daily TOUJEO SOLOSTAR 300 UNIT/ML SUBCUTANEOUS SOLUTION PEN-INJECTOR INSULIN GLARGINE Inactive SUCRALFATE 1 GM ORAL TABLET 1 four times a day to coat the stoma ch SUCRALFATE 1 GM ORAL TABLET 646153 SUCRALFATE Inac tive GABAPENTIN 300 MG ORAL CAPSULE 1 three times a day 201 12/03/26 GABAPENTIN 300 MG ORAL CAPSULE 805581 GABAPENTIN Inactive ZITHROMAX Z-ISAIAS 250 MG ORAL TABLET Take two tablets to day and then 1 tablet daily for 4 days ZITHROMAX Z-ISAIAS 250 MG ORAL TAB LET 479924 AZITHROMYCIN Inactive Immunizations Vaccine Administration Date Value Standard Floyd cription pneumococcal immunization administered Pneumovax 23 [CVX33] pneumococcal polysaccharide vaccine, 23 valent Seasonal influenza vaccine, injectable, containing preservative, for > 3 years old (Afluria, FluLaval, Fluzone, Fluvirin, Fluarix, Agriflu(>= 18 yo)) Fluzone (>3 yrs.) [CZQ435] Influenza, seasonal, inject able Seasonal influenza vaccine, injectable, containing preservative, for > 3 years old (Afluria, FluLaval, Fluzone, Fluvirin, Fluarix, Agriflu(>= 18 yo)) Fluzone (>3 yrs.) [CDA802] Influenza, seasonal, inject able Vital Signs Date [...] - Chem istry sodium, serum 139 mmol/L 116-715 2663/10/03 potassium, serum 4.7 mmol/L 3.5-5.2 chloride, serum 98 mmol/L 98-107 carbon dioxide, venous blood 28.7 mmol/L 21.0-32 .0 blood glucose 218 mg/dL 65-110 calcium, serum 9.8 mg/dL 8.5-10.1 urea nitrogen, blood 19 mg/dL 7-18 creatinine, serum 1.68 mg/dL 0.60-1.30 sodium, serum 139 mmol/L 942-437 1534/06/26 potassium, serum 4.8 mmol/L 3.5-5.2 chloride, serum 102 mmol/L 98-107 carbon dioxide, venous blood 29.1 mmol/L 21.0-32 .0 blood glucose 179 mg/dL 65-95 calcium, serum 9.7 mg/dL 8.5-10.1 urea nitrogen, blood 31 mg/dL 7-18 creatinine, serum 1.97 mg/dL 0.60-1.30 Lab Report: CBC, Renal Panel - Chemistry sodium, serum 142 mmol/L 968-365 3918/08/11 potassium, serum 4.8 mmol/L 3.5-5.2 chloride, serum [...] (L) - Chemistry cholesterol, serum 209 mg/dL 294-356 9187/12/27 triglyceride, serum, fasting 329 mg/dL 30-200 HDL cholesterol, serum 56 mg/dL 32-60 LDL cholesterol, serum 87 mg/dL 0-130 TSH 3.60 m[iU]/mL 0.36-3.74 Office Visit: Meds Check - Toxicology drug screen, urine, qualitative negative Encounters Code Encounter Date Provider Facility [facility]-[id number] Vst-Est Level V 14:26:27 CDT Aneudy Childers MD [facility] CPT-10796 Level 4 Est. Patient 17:05:37 CDT Baltazar Childers MD [facility] CPT-03000 Level 4 Est. Patient 16:21:19 RING ROLLING MACHINE OPERATOR Baltazar Childers MD [facility]-22358 Level 4 Est. Patient 12:25:11 CDT Baltazar Childers MD [facility]-10670 Level 4 Est. Patient 14:22:31 CDT Baltazar Childers MD [facility]-80957 Level 4 Est. Patient 15:44:38 [facility] Est. Patient 11:34:17 CDT Baltazar Childers MD [facility]-34370 Level 3 Est. Patient 16:40:40 CDT Baltazar Childers MD [facility] CPT-66398 Level 4 Est. Patient 10:41:24 CDT Baltazar Childers MD [facility]-45832 Level 4 Est. Patient 16:01:48 CDT Baltazar Childers MD [facility] CPT-25907 Level 4 Est. Patient 16:54:07 RING ROLLING MACHINE OPERATOR Baltazar Childers MD [facility]-72939 Level 4 Est. Patient 15:42:12 CDT Baltazar Childers MD [facility] CPT-36247 Level 4 Est. Patient 11:29:55 CDT Baltazar Childers MD [facility] CPT-91025 Level 4 Est. Patient 14:15:19 CDT Baltazar Childers MD [facility] CPT-55515 Level 4 Est. Patient 12:20:13 CDT Baltazar Childers MD [facility] CPT-04661 Level 4 Est. Patient 14:52:45 RING ROLLING MACHINE OPERATOR Baltazar Childers MD [facility] CPT-76481 Level 4 Est. Patient 14:18:34 RING ROLLING MACHINE OPERATOR Baltazar Childers MD [facility] CPT-36261 Level 4 Est. Patient 15:18:29 CDT Baltazar Childers MD [facility] CPT-40551 Level 3 Est. Patient 12:45:34 CDT Baltazar Childers MD [facility] CPT-49872 Level 3 Est. Patient 10:10:11 CDT Baltazar Childers MD [facility] CPT-17364 Level 3 Est. Patient 14:07:50 CDT Baltazar Childers MD [facility] CPT-05157 Level 4 Est. Patient 12:26:10 RING ROLLING MACHINE OPERATOR Baltazar Childers MD [facility] CPT-40612 Level 4 Est. Patient 14:45:38 CDT Baltazar Childers MD [facility] CPT-80824 Level 4 New Patient 12:30:48 CDT Baltazar hinton MD [facility] Procedures Code Procedure Name Date Entry Date Standard Desc ription CPT-000 Give Appropriate Flu Vaccine 12:25:14 CDT 2 CPT-24670 First Vx - Ix admin via ID I M or jet injects without counseling by physician 13:08:59 CDT CPT-69620 Fluzone Quadrivalent Intramuscular Suspe nsion 0.5 ML 13:08:59 CDT CPT-66351 Venipuncture Draw Fee 12:04:12 CDT CPT-85491 Lipid - LAB USE ONLY 17:39:15 RING ROLLING MACHINE OPERATOR 9 CPT-13875 HGBA1C - LAB USE ONLY 17:39:15 RING ROLLING MACHINE OPERATOR CPT-64397 CMP - LAB USE ONLY 17:39:14 RING ROLLING MACHINE OPERATOR CPT-54232 Venipuncture Draw Fee 17:39:14 RING ROLLING MACHINE OPERATOR CPT-88141 First Vx - Ix admin via ID I M or jet injects without counseling by physician 16:55:17 RING ROLLING MACHINE OPERATOR CPT-89959 Fluzone Quadrivalent Intramuscular Suspe nsion 0.5 ML 16:55:17 RING ROLLING MACHINE OPERATOR CPT-90087 Renal Panel - LAB USE ONLY 17:39:20 CDT 201 10/31/07 CPT-33020 CBC - LAB USE ONLY 17:39:20 CDT CPT-50878 Venipuncture Draw Fee 17:39:20 CDT CPT-10634 Venipuncture Draw Fee 14:33:30 CDT CPT-93130 Renal Panel - LAB USE ONLY 14:33:30 CDT 201 10/31/07 CPT-93704 CBC - LAB USE ONLY 14:33:29 CDT CPT-82515 Venipuncture Draw Fee 14:50:21 RING ROLLING MACHINE OPERATOR CPT-37483 Immunization Single Admin 17:35:35 CDT 2014 CPT-90796 Fluzone Quadrivalent preservative free ( >=3yrs.) 17:35:35 CDT CPT-86379 Venipuncture Draw Fee 12:10:27 RING ROLLING MACHINE OPERATOR CPT-67142 Fluzone Quadrivalent Intramuscular Suspe nsion 0.5 ML 10:49:13 CDT CPT-06400 First Vx Component - Ix admi n via ID IM or jet inj without physician counseling 15:17:19 RING ROLLING MACHINE OPERATOR CPT-35813 Pneumovax 15:17:19 RING ROLLING MACHINE OPERATOR CPT-06689 Pneumovax 14:52:45 RING ROLLING MACHINE OPERATOR CPT-59265 Venipuncture Draw Fee 14:06:30 RING ROLLING MACHINE OPERATOR CPT-000 Give Appropriate Flu Vaccine 14:18:34 RING ROLLING MACHINE OPERATOR 2 CPT-69592 Administration single or combination vac cine inc oral 14:46:00 RING ROLLING MACHINE OPERATOR CPT-49291 Influenza split virus > age 3 14:46:00 RING ROLLING MACHINE OPERATOR CPT-OV Office Visit 19:13:16 CDT CPT-70414 Zostavax 18:41:56 CDT CPT-09889 Administration single or combination vac cine inc oral 12:56:39 CDT CPT-27728 Zoster Vaccine (Zostavax) 12:56:39 CDT 2012 CPT-25745 Venipuncture Draw Fee 10:58:57 CDT CPT-74704 Sono pelvis non OB uterus ovaries cervix 17:45:04 CDT CPT-02090 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
--- OUTSIDE RECORDS SUMMARY | 2019-10-27 12:22 | XMS REPORT | Clinical Summary ---
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 Benign neoplasm of colon PERIPHERAL NEUROPATHY 356.9 [...] Test twice a day GLUCO SE BLOOD 94569282597 No Longer Active Baltazar Childers MD Active TRUEPLUS LANCETS 33G MISC Test twice a day LANCET S 22235742669 Active Baltazar Childers MD Active TRUEDRAW LANCING DEVICE MISC Test twice a day L ANCET DEVICES 26993626993 Active Baltazar Childers MD Active TRUETRACK TEST STRP Test twice a day GLUCOSE BLOO D 66296517918 Active Baltazar Childers MD Active TRUETRACK BLOOD GLUCOSE W/DEVICE KIT Test twice a day BLOOD GLUCOSE MONITORING SUPPL 94823571991 Active Baltazar Childers MD Activ e HYDROCODONE-ACETAMINOPHEN 7.5-325 MG TABS Take 1 tab every 6-8 hour s PRN HYDROCODONE-ACETAMINOPHEN 27958864448 Active Baltazar Childers MD Active NORTRIPTYLINE HCL 50 MG CAPS 1 every night for neuropathy 4 NORTRIPTYLINE HCL 19731666568 Active Baltazar Childers MD Acti ve GABAPENTIN 300 MG CAPS 1 three times a day GABAPE NTIN 04292995198 Active Baltazar Childers MD Active GABAPENTIN 300 MG CAPS 1 po qd x 2 days, then 1 po BID x 2 d ays, then 1 po TID GABAPENTIN 27594198715 No Longer Active Baltazar silverman MD Active TRAMADOL HCL 50 MG TABS 1 twice a day as needed for pain TRAMADOL HCL 25471460579 Active Baltazar Childers MD Active NAPROXEN 500 MG TABS 1 tablet by mouth twice daily NAPROXEN 00224306775 No Longer Active Baltazar Childers MD Active PROAIR HFA 108 (90 BASE) MCG/ACT AERS 2 puffs four times a d ay as needed ALBUTEROL SULFATE 68459540752 Active Baltazar Childers MD Active DEPO-TESTOSTERONE 200 MG/ML OIL as directed RUFINO TOSTERONE CYPIONATE 26915254073 No Longer Active Baltazar Childers MD Active LIPITOR 20 MG TABS Take one by mouth daily in evening ATORVASTATIN CALCIUM 59233591503 No Longer Active Baltazar Childers MD Activ e CRESTOR 10 MG TABS 1 by mouth every day R OSUVASTATIN CALCIUM 45635049334 No Longer Active Baltazar Childers MD Activ e PHENTERMINE HCL 37.5 MG TABS Take one by mouth daily 2 PHENTERMINE HCL 22541312587 No Longer Active Baltazar Childers MD Activ e ROBAXIN-750 750 MG TABS Take one by mouth daily ME THOCARBAMOL 64694365720 Active Baltazar Childers MD Active TIZANIDINE HCL 4 MG TABS 1 daily as needed for muscle spasm 2011 TIZANIDINE HCL 74064237501 No Longer Active Dawna Salazar RN Active [id number] 50-325-40 MG TABS 1 four time s a day as needed for heacache [id number] 53908153488 Active Baltazar Childers MD Active SUMATRIPTAN SUCCINATE 100 MG TABS 1 tablet by mouth at onset of migraine as needed SUMATRIPTAN SUCCINATE 30627027994 Active Baltazar bynum MD Active LORATADINE 10 MG TABS Take one by mouth daily LORATADINE 29487054434 Active Baltazar Childers MD Active FUROSEMIDE 40 MG TABS Take one by mouth daily FUROSEMIDE 73367643603 Active Baltazar Childers MD Active LISINOPRIL 20 MG TABS Take one by mouth daily at bedtime LISINOPRIL 17369664607 Active Baltazar Childers MD Active OMEPRAZOLE 20 MG CPDR Take one by mouth daily OMEPRAZOLE 30737230850 Active Baltazar Childers MD Active HYDROXYZINE HCL 25 MG TABS Take one by mouth daily HYDROXYZINE HCL 92012752273 Active Baltazar Childers MD Active GLIPIZIDE 10 MG TABS 1 tablet by mouth twice daily GLIPIZIDE 83278187123 Active Baltazar Childers MD Active ALPRAZOLAM 1 MG TABS 1 tablet by mouth daily at bedtime for restles s leg ALPRAZOLAM 25027041929 Active Baltazar Childers MD Active METFORMIN HCL 1000 MG TABS Take one by mouth twice daily METFORMIN HCL 49762054244 Active Baltazar Childers MD Active TIZANIDINE HCL 4 MG TABS 1 daily as needed for muscle spasm 2011 TIZANIDINE HCL 4 MG TABS 707553 TIZANIDINE HCL Inactiv e PHENTERMINE HCL 37.5 MG TABS Take one by mouth daily 2 PHENTERMINE HCL 37.5 MG TABS 532427 PHENTERMINE HCL Inactive CRESTOR 10 MG TABS 1 by mouth every day C RESTOR 10 MG TABS ROSUVASTATIN CALCIUM Inactive LIPITOR 20 MG TABS Take one by mouth daily in evening LIPITOR 20 MG TABS 965875 ATORVASTATIN CALCIUM Inactive DEPO-TESTOSTERONE 200 MG/ML OIL as directed 8 DEPO-TESTOSTERONE 200 MG/ML OIL 700994 TESTOSTERONE CYPIONATE Inactive NAPROXEN 500 MG TABS 1 tablet by mouth twice daily 201 07/27/22 NAPROXEN 500 MG TABS 652743 NAPROXEN Inactive GABAPENTIN 300 MG CAPS 1 po qd x 2 days, then 1 po BID x 2 d ays, then 1 po TID GABAPENTIN 300 MG CAPS 555082 GABAPENTIN Inact amie ONETOUCH ULTRA BLUE STRP Test twice a day ONETOUCH ULTRA BLUE STRP GLUCOSE BLOOD Inactive Immunizations Vaccine Administration Date Value Standard Floyd cription pneumococcal immunization administered Pneumovax 23 [CVX33] pneumococcal polysaccharide vaccine, 23 valent Seasonal influenza vaccine, injectable, containing preservative, for > 3 years old (Afluria, FluLaval, Fluzone, Fluvirin, Fluarix, Agriflu(>= 18 yo)) Fluzone (>3 yrs.) [[id number]] Influenza, seasonal, inject able Seasonal influenza vaccine, injectable, containing preservative, for > 3 years old (Afluria, FluLaval, Fluzone, Fluvirin, Fluarix, Agriflu(>= 18 yo)) Fluzone (>3 yrs.) [[id number]] Influenza, seasonal, inject able Vital Signs Date [...] - Chem istry sodium, serum 140 mmol/L 945-879 4567/05/05 potassium, serum 4.9 mmol/L 3.5-5.2 chloride, serum [...] Panel - Chemistry sodium, serum 139 mmol/L 005-152 2023/01/20 potassium, serum 5.3 mmol/L 3.5-5.2 chloride, serum [...] mg/g mg/g{creat} 0-29 cholesterol, serum 319 mg/dL 844-980 7992/08/21 triglyceride, serum, fasting 546 mg/dL 30-200 HDL cholesterol, serum 39 mg/dL 32-96 LDL cholesterol, serum 167.00 mg/dL 5.00-130.00 hemoglobin A1C, blood, as % of total hemoglobin 7.7 % 4.3-6.0 sodium, serum 138 mmol/L 954-662 6251/08/21 potassium, serum 4.3 mmol/L 3.5-5.2 chloride, serum [...] 0-19 Encounters Code Encounter Date Provider Facility CPT-16638 Level 4 Est. Patient 11:29:55 CDT Baltazar Childers MD [facility] CPT-28540 Level 4 Est. Patient 14:15:19 CDT Baltazar Childers MD [facility] CPT-92222 Level 4 Est. Patient 12:20:13 CDT Baltazar Childers MD [facility] CPT-29241 Level 4 Est. 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 Patient 14:18:34 YARD [employer]AL [employer] SUPERVISOR Baltazar Childers MD [facility] CPT-53872 Level 4 Est. Patient 15:18:29 CDT Baltazar Childers MD [facility] CPT-58385 Level 3 Est. Patient 12:45:34 CDT Baltazar Childers MD [facility] CPT-88669 Level 3 Est. Patient 10:10:11 CDT Baltazar Childers MD [facility] CPT-42764 Level 3 Est. Patient 14:07:50 CDT Baltazar Childers MD [facility] CPT-20582 Level 4 Est. Patient 12:26:10 YARD [employer]AL [employer] SUPERVISOR Baltazar Childers MD [facility] CPT-14988 Level 4 Est. Patient 14:45:38 CDT Baltazar Childers MD [facility] CPT-67481 Level 4 New Patient 12:30:48 CDT Baltazar hinton MD [facility] Procedures Code Procedure Name Date Entry Date Standard Desc ription CPT-17166 Venipuncture Draw Fee 12:10:27 [employer]PER[employer]OR CPT-71613 Fluzone Quadrivalent Intramuscular Suspe nsion 0.5 ML 10:49:13 CDT CPT-49432 First Vx Component - Ix admi n via ID IM or jet inj without physician counseling 15:17:19 [employer]PER[employer] CPT-44262 Pneumovax 15:17:19 [employer]ARD [employer]AL [employer] SUPER[employer]OR CPT-86048 Pneumovax 14:52:45 [employer]ARD [employer]AL [employer] SUPERVISOR CPT-85752 Venipuncture Draw Fee 14:06:30 [employer] SUPERVISOR CPT-000 Give Appropriate Flu Vaccine 14:18:34 YARD [employer]AL [employer] SUPERVISOR 2 CPT-51691 Administration single or combination vac cine inc oral 14:46:00 [employer] SUPERVISOR CPT-30608 Influenza split virus > age 3 14:46:00 [employer]ARD [employer]AL [employer] SUPERVISOR CPT-OV Office Visit 19:13:16 CDT CPT-29624 Zostavax 18:41:56 CDT CPT-24008 Administration single or combination vac cine inc oral 12:56:39 CDT CPT-44537 Zoster Vaccine (Zostavax) 12:56:39 CDT 2012 CPT-07186 Venipuncture Draw Fee 10:58:57 CDT CPT-14950 Sono pelvis non OB uterus ovaries cervix 17:45:04 CDT CPT-43085 Sono retroperitoneal complete kidneys an d bladder 17:14:36 CDT CPT-OV Office Visit 14:59:38 [employer] SUPER[employer] CPT-J1070 Depo Testosterone 100 mg 14:50:13 CDT 03/05 CPT-18828 Abx/Therapy Injection 14:50:13 CDT CPT-50765 Administration single or combination vac cine inc oral 14:34:43 CDT CPT-53410 Influenza split virus > age 3 14:34:43 CDT CPT-J1070 Depo Testosterone 100 mg 17:37:13 CDT 01/11 CPT-76390 Abx/Therapy Injection 17:37:13 CDT CPT-76915 Venipuncture Draw Fee 16:30:13 CDT CPT-40525 Venipuncture Draw Fee 16:29:43 CDT CPT-J1070 Depo Testosterone 100 mg 14:45:38 CDT 01/11
--- OUTSIDE RECORDS SUMMARY | 2019-10-27 12:23 | XMS REPORT | Clinical Summary ---
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 Benign neoplasm of colon PERIPHERAL NEUROPATHY 356.9 [...] MISC use 1 daily INSULIN PEN NEEDLE 37670338267 Active Martita Herbert RMA Active TOUJEO SOLOSTAR 300 UNIT/ML SC SOPN 10 units SC daily INSULIN GLARGINE 78052468222 No Longer Active Martita Herbert RMA Active LANTUS SOLOSTAR 100 UNIT/ML SC SOPN 10 units SC daily INSULIN GLARGINE 33759905765 Active Martita Herbert RMA Active NAPROXEN SODIUM 220 MG ORAL TABS 1 three times a day as needed 2 NAPROXEN SODIUM 39975842090 No Longer Active Baltazar Childers MD Active ATORVASTATIN CALCIUM 20 MG ORAL TABS Take 1 tab daily ATORVASTATIN CALCIUM 81276251227 Active KENDALL Juarez Active FUROSEMIDE 40 MG TABS Take one by mouth daily FUROSEMIDE 28408579989 Active Baltazar Childers MD Active LISINOPRIL 20 MG TABS Take one by mouth daily at bedtime LISINOPRIL 02248622663 Active Baltazar Childers MD Active ONETOUCH ULTRA BLUE STRP Test twice a day GLUCO SE BLOOD 52920067698 No Longer Active Baltazar Childers MD Active TRUEPLUS LANCETS 33G MISC Test twice a day LANCET S 19121807206 Active KENDALL Juarez Active TRUEDRAW LANCING DEVICE MISC Test twice a day L ANCET DEVICES 34603992955 Active Baltazar Childers MD Active TRUETRACK TEST STRP Test twice a day GLUCOSE BLOO D 19157438586 Active KENDALL Juarez Active TRUETRACK BLOOD GLUCOSE W/DEVICE KIT Test twice a day BLOOD GLUCOSE MONITORING SUPPL 84029270153 Active Baltazar Childers MD Activ e HYDROCODONE-ACETAMINOPHEN 7.5-325 MG TABS Take 1 tab every 6-8 hour s PRN HYDROCODONE-ACETAMINOPHEN 07999872745 Active Baltazar Childers MD Active NORTRIPTYLINE HCL 50 MG CAPS 1 every night for neuropathy 4 NORTRIPTYLINE HCL 66277539099 Active Baltazar Childers MD Acti ve GABAPENTIN 300 MG CAPS 1 three times a day GABAPE NTIN 23018894671 Active Baltazar Childers MD Active GABAPENTIN 300 MG CAPS 1 po qd x 2 days, then 1 po BID x 2 d ays, then 1 po TID GABAPENTIN 31363158875 No Longer Active Baltazar silverman MD Active TRAMADOL HCL 50 MG TABS 1 twice a day as needed for pain TRAMADOL HCL 01570095518 Active Baltazar Childers MD Active NAPROXEN 500 MG TABS 1 tablet by mouth twice daily NAPROXEN 27347654767 No Longer Active Baltazar Childers MD Active PROAIR HFA 108 (90 BASE) MCG/ACT AERS 2 puffs four times a d ay as needed ALBUTEROL SULFATE 07061461058 Active KENDALL Juarez Active DEPO-TESTOSTERONE 200 MG/ML OIL as directed RUFINO TOSTERONE CYPIONATE 50078502982 No Longer Active Baltazar Childers MD Active LIPITOR 20 MG TABS Take one by mouth daily in evening ATORVASTATIN CALCIUM 28779960965 No Longer Active Baltazar Childers MD Activ e CRESTOR 10 MG TABS 1 by mouth every day R OSUVASTATIN CALCIUM 03146533502 No Longer Active Baltazar Childers MD Activ e PHENTERMINE HCL 37.5 MG TABS Take one by mouth daily 2 PHENTERMINE HCL 42549981730 No Longer Active Baltazar Childers MD Activ e ROBAXIN-750 750 MG TABS Take one by mouth daily ME THOCARBAMOL 04695948855 Active Baltazar Childers MD Active TIZANIDINE HCL 4 MG TABS 1 daily as needed for muscle spasm 2011 TIZANIDINE HCL 07524042206 No Longer Active Dawna Salazar RN Active [id number] 50-325-40 MG TABS 1 four time s a day as needed for heacache [id number] 80598624413 Active Baltazar Childers MD Active SUMATRIPTAN SUCCINATE 100 MG TABS 1 tablet by mouth at onset of migraine as needed SUMATRIPTAN SUCCINATE 82048212622 Active KENDALL Juarez Active LORATADINE 10 MG TABS Take one by mouth daily LORATADINE 30744996715 Active Baltazar Childers MD Active OMEPRAZOLE 20 MG CPDR Take one by mouth daily OMEPRAZOLE 41654944605 Active [place] Fitzgeralder Active HYDROXYZINE HCL 25 MG TABS Take one by mouth daily HYDROXYZINE HCL 22597148458 Active Baltazar Childers MD Active GLIPIZIDE 10 MG TABS 1 tablet by mouth twice daily GLIPIZIDE 50599839119 Active Baltazar Childers MD Active ALPRAZOLAM 1 MG TABS 1 tablet by mouth daily at bedtime for restles s leg ALPRAZOLAM 30798049089 Active Baltazar Childers MD Active METFORMIN HCL 1000 MG TABS Take one by mouth twice daily METFORMIN HCL 76194189729 Active Baltazar Childers MD Active TIZANIDINE HCL 4 MG TABS 1 daily as needed for muscle spasm 2011 TIZANIDINE HCL 4 MG TABS 865582 TIZANIDINE HCL Inactiv e PHENTERMINE HCL 37.5 MG TABS Take one by mouth daily 2 PHENTERMINE HCL 37.5 MG TABS 398361 PHENTERMINE HCL Inactive CRESTOR 10 MG TABS 1 by mouth every day C RESTOR 10 MG TABS 361377 ROSUVASTATIN CALCIUM Inactive LIPITOR 20 MG TABS Take one by mouth daily in evening LIPITOR 20 MG TABS 230190 ATORVASTATIN CALCIUM Inactive DEPO-TESTOSTERONE 200 MG/ML OIL as directed 8 DEPO-TESTOSTERONE 200 MG/ML OIL 664366 TESTOSTERONE CYPIONATE Inactive NAPROXEN 500 MG TABS 1 tablet by mouth twice daily 201 07/27/22 NAPROXEN 500 MG TABS 867370 NAPROXEN Inactive GABAPENTIN 300 MG CAPS 1 po qd x 2 days, then 1 po BID x 2 d ays, then 1 po TID GABAPENTIN 300 MG CAPS 861374 GABAPENTIN Inact amie ONETOUCH ULTRA BLUE STRP Test twice a day ONETOUCH ULTRA BLUE STRP GLUCOSE BLOOD Inactive NAPROXEN SODIUM 220 MG ORAL TABS 1 three times a day as needed 2 NAPROXEN SODIUM 220 MG ORAL TABS 478355 NAPROXEN SODIUM Inactive TOUJEO SOLOSTAR 300 UNIT/ML [...] Fluarix, Agriflu(>= 18 yo)) Fluzone (>3 yrs.) [[id number]] Influenza, seasonal, inject able Seasonal influenza vaccine, injectable, containing preservative, for > 3 years old (Afluria, FluLaval, Fluzone, Fluvirin, Fluarix, Agriflu(>= 18 yo)) Fluzone (>3 yrs.) [[id number]] Influenza, seasonal, inject able Vital Signs Date [...] pressure, diastolic - 8462-4 74 mm[Hg] BP samleron blood pressure, systolic - 8480-6 114 mm[Hg] [...] C - Chemistry sodium, serum 139 mmol/L 071-325 8803/07/07 potassium, serum 4.5 mmol/L 3.5-5.2 chloride, serum [...] 7.9 % 4.3-6.0 sodium, serum 139 mmol/L 290-875 9877/02/04 potassium, serum 5.4 mmol/L 3.5-5.2 chloride, serum [...] Panel - Chemistry sodium, serum 138 mmol/L 402-426 1345/11/23 carbon dioxide, venous blood 32.4 mmol/L 21.0-32 .0 potassium, serum 5.7 mmol/L 3.5-5.2 chloride, serum 98 mmol/L 98-107 blood glucose 136 mg/dL 65-110 urea nitrogen, blood 18 mg/dL 7-18 creatinine, serum 1.71 mg/dL 0.55-1.30 alanine aminotransferase (SGPT), serum 71 U/L 12-78 aspartate aminotransferase (SGOT), serum 34 U/L 15-37 calcium, serum 9.4 mg/dL 8.5-10.1 bilirubin, serum, total 0.40 mg/dL 0.00-1.00 cholesterol, serum 405 mg/dL 283-940 7500/11/23 triglyceride, serum, fasting 709 mg/dL 30-200 HDL [...] Panel - Chemistry sodium, serum 141 mmol/L 048-312 1275/08/08 potassium, serum 4.9 mmol/L 3.5-5.2 chloride, serum [...] mg/dL Encounters Code Encounter Date Provider Facility CPT-12959 Level 3 Est. Patient 16:40:40 CDT Baltazar Childers MD [facility] CPT-21817 Level 4 Est. Patient 10:41:24 CDT Baltazar Childers MD [facility] CPT-60367 Level 4 Est. Patient 16:01:48 CDT Baltazar Childers MD [facility] CPT-74037 Level 4 Est. Patient 16:54:07 WEEKEND CAREGIVER Baltazar Childers MD [facility] CPT-12494 Level 4 Est. Patient 15:42:12 CDT Baltazar Childers MD [facility] CPT-68602 Level 4 Est. Patient 11:29:55 CDT Baltazar Childers MD [facility] CPT-45808 Level 4 Est. Patient 14:15:19 CDT Baltazar Childers MD [facility] CPT-78277 Level 4 Est. Patient 12:20:13 CDT Baltazar Childers MD [facility] CPT-82402 Level 4 Est. Patient 14:52:45 WEEKEND CAREGIVER Batlazar Childers MD [facility] CPT-90702 Level 4 Est. Patient 14:18:34 WEEKEND CAREGIVER Baltazar Childers MD [facility] CPT-95105 Level 4 Est. Patient 15:18:29 CDT Baltazar Childers MD [facility] CPT-71076 Level 3 Est. Patient 12:45:34 CDT Baltazar Childers MD [facility] CPT-70719 Level 3 Est. Patient 10:10:11 CDT Baltazar Childers MD [facility] CPT-98202 Level 3 Est. Patient 14:07:50 CDT Baltazar Childers MD [facility] CPT-88614 Level 4 Est. Patient 12:26:10 WEEKEND CAREGIVER Baltazar Childers MD [facility] CPT-29177 Level 4 Est. Patient 14:45:38 CDT Baltazar Childers MD [facility] CPT-81333 Level 4 New Patient 12:30:48 CDT Baltazar hinton MD [facility] Procedures Code Procedure Name Date Entry Date Standard Desc ription CPT-32630 Renal Panel - LAB USE ONLY 17:39:20 CDT 201 10/31/07 CPT-33277 CBC - LAB USE ONLY 17:39:20 CDT CPT-15853 Venipuncture Draw Fee 17:39:20 CDT CPT-45073 Venipuncture Draw Fee 14:33:30 CDT CPT-77260 Renal Panel - LAB USE ONLY 14:33:30 CDT 201 10/31/07 CPT-63766 CBC - LAB USE ONLY 14:33:29 CDT CPT-83162 Venipuncture Draw Fee 14:50:21 WEEKEND CAREGIVER CPT-78907 Immunization Single Admin 17:35:35 CDT 2014 CPT-94502 Fluzone Quadrivalent preservative free ( >=3yrs.) 17:35:35 CDT CPT-13832 Venipuncture Draw Fee 12:10:27 WEEKEND CAREGIVER CPT-72706 Fluzone Quadrivalent Intramuscular Suspe nsion 0.5 ML 10:49:13 CDT CPT-67367 First Vx Component - Ix admi n via ID IM or jet inj without physician counseling 15:17:19 WEEKEND CAREGIVER CPT-47142 Pneumovax 23 15:17:19 WEEKEND CAREGIVER CPT-36974 Pneumovax 14:52:45 WEEKEND CAREGIVER CPT-88898 Venipuncture Draw Fee 14:06:30 WEEKEND CAREGIVER CPT-000 Give Appropriate Flu Vaccine 14:18:34 WEEKEND CAREGIVER 2 CPT-85754 Administration single or combination vac cine inc oral 14:46:00 WEEKEND CAREGIVER CPT-99083 Influenza split virus > age 3 14:46:00 WEEKEND CAREGIVER CPT-OV Office Visit 19:13:16 CDT CPT-28337 Zostavax 18:41:56 CDT CPT-47777 Administration single or combination vac cine inc oral 12:56:39 CDT CPT-45550 Zoster Vaccine (Zostavax) 12:56:39 CDT 2012 CPT-25737 Venipuncture Draw Fee 10:58:57 CDT CPT-84388 Sono pelvis non OB uterus ovaries cervix 17:45:04 CDT CPT-80799 Sono retroperitoneal complete kidneys an d bladder 17:14:36 CDT CPT-OV Office Visit 14:59:38 WEEKEND CAREGIVER CPT-J1070 Depo Testosterone 100 mg 14:50:13 CDT 03/05 CPT-17397 Abx/Therapy Injection 14:50:13 CDT CPT-14913 Administration single or combination vac cine inc oral 14:34:43 CDT CPT-95606 Influenza split virus > age 3 14:34:43 CDT CPT-J1070 Depo Testosterone 100 mg 17:37:13 CDT 01/11 CPT-51413 Abx/Therapy Injection 17:37:13 CDT CPT-95088 Venipuncture Draw Fee 16:30:13 CDT CPT-93048 Venipuncture Draw Fee 16:29:43 CDT CPT-J1070 Depo Testosterone 100 mg 14:45:38 CDT 01/11
--- OUTSIDE RECORDS SUMMARY | 2019-10-27 12:23 | XMS REPORT | Clinical Summary ---
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 Benign neoplasm of colon PERIPHERAL NEUROPATHY 356.9 [...] atherosclerosis of unspecified type of vessel, [place] or graft OTH NONSPC ABN FINDNG RAD&OTH [...] a day as needed 2 NAPROXEN SODIUM 69107925054 No Longer Active Baltazar Childers MD Active ATORVASTATIN CALCIUM 20 MG ORAL TABS Take 1 tab daily ATORVASTATIN CALCIUM 78066636430 Active Kelly Iraheta LPN Active FUROSEMIDE 40 MG TABS Take one by mouth daily FUROSEMIDE 12251065716 Active Baltazar Childers MD Active LISINOPRIL 20 MG TABS Take one by mouth daily at bedtime LISINOPRIL 22086881402 Active KENDALL Juarez Active ONETOUCH ULTRA BLUE STRP Test twice a day GLUCO SE BLOOD 00883874215 No Longer Active Baltazar Childers MD Active TRUEPLUS LANCETS 33G MISC Test twice a day LANCET S 68562122701 Active KENDALL Juarez Active TRUEDRAW LANCING DEVICE MISC Test twice a day L ANCET DEVICES 13476019117 Active Baltazar Childers MD Active TRUETRACK TEST STRP Test twice a day GLUCOSE BLOO D 14430653633 Active Baltazar Childers MD Active TRUETRACK BLOOD GLUCOSE W/DEVICE KIT Test twice a day BLOOD GLUCOSE MONITORING SUPPL 94517813523 Active Baltazar Childers MD Activ e HYDROCODONE-ACETAMINOPHEN 7.5-325 MG TABS Take 1 tab every 6-8 hour s PRN HYDROCODONE-ACETAMINOPHEN 56995125707 Active Baltazar Childers MD Active NORTRIPTYLINE HCL 50 MG CAPS 1 every night for neuropathy 4 NORTRIPTYLINE HCL 58614522364 Active Baltazar Childers MD Acti ve GABAPENTIN 300 MG CAPS 1 three times a day GABAPE NTIN 24119552935 Active KENDALL Juarez Active GABAPENTIN 300 MG CAPS 1 po qd x 2 days, then 1 po BID x 2 d ays, then 1 po TID GABAPENTIN 45765213670 No Longer Active Baltazar silverman MD Active TRAMADOL HCL 50 MG TABS 1 twice a day as needed for pain TRAMADOL HCL 41953305355 Active Baltazar Childers MD Active NAPROXEN 500 MG TABS 1 tablet by mouth twice daily NAPROXEN 37377428339 No Longer Active Baltazar Chiledrs MD Active PROAIR HFA 108 (90 BASE) MCG/ACT AERS 2 puffs four times a d ay as needed ALBUTEROL SULFATE 26937507270 Active KENDALL Juarez Active DEPO-TESTOSTERONE 200 MG/ML OIL as directed RUFINO TOSTERONE CYPIONATE 95827127964 No Longer Active Baltazar Childers MD Active LIPITOR 20 MG TABS Take one by mouth daily in evening ATORVASTATIN CALCIUM 30474558542 No Longer Active Baltazar Childers MD Activ e CRESTOR 10 MG TABS 1 by mouth every day R OSUVASTATIN CALCIUM 21118596000 No Longer Active Baltazar Childers MD Activ e PHENTERMINE HCL 37.5 MG TABS Take one by mouth daily 2 PHENTERMINE HCL 68606979365 No Longer Active Baltazar Childers MD Activ e ROBAXIN-750 750 MG TABS Take one by mouth daily ME THOCARBAMOL 99355310992 Active Baltazar Childers MD Active TIZANIDINE HCL 4 MG TABS 1 daily as needed for muscle spasm 2011 TIZANIDINE HCL 45556934398 No Longer Active Dawna Salazar RN Active [id number] 50-325-40 MG TABS 1 four time s a day as needed for heacache [id number] 29292479348 Active Baltazar Childers MD Active SUMATRIPTAN SUCCINATE 100 MG TABS 1 tablet by mouth at onset of migraine as needed SUMATRIPTAN SUCCINATE 12843888376 Active KENDALL Juarez Active LORATADINE 10 MG TABS Take one by mouth daily LORATADINE 64652094849 Active Baltazar Childers MD Active OMEPRAZOLE 20 MG CPDR Take one by mouth daily OMEPRAZOLE 40692961919 Active Baltazar Childers MD Active HYDROXYZINE HCL 25 MG TABS Take one by mouth daily HYDROXYZINE HCL 95834979297 Active Baltazar Childers MD Active GLIPIZIDE 10 MG TABS 1 tablet by mouth twice daily GLIPIZIDE 54719674716 Active Bella Suarez APRN Active ALPRAZOLAM 1 MG TABS 1 tablet by mouth daily at bedtime for restles s leg ALPRAZOLAM 06963954760 Active Baltazar Childers MD Active METFORMIN HCL 1000 MG TABS Take one by mouth twice daily METFORMIN HCL 83388044221 Active Baltazar Childers MD Active TIZANIDINE HCL 4 MG TABS 1 daily as needed for muscle spasm 2011 TIZANIDINE HCL 4 MG TABS 637809 TIZANIDINE HCL Inactiv e PHENTERMINE HCL 37.5 MG TABS Take one by mouth daily 2 PHENTERMINE HCL 37.5 MG TABS 003576 PHENTERMINE HCL Inactive CRESTOR 10 MG TABS 1 by mouth every day C RESTOR 10 MG TABS ROSUVASTATIN CALCIUM Inactive LIPITOR 20 MG TABS Take one by mouth daily in evening LIPITOR 20 MG TABS 856647 ATORVASTATIN CALCIUM Inactive DEPO-TESTOSTERONE 200 MG/ML OIL as directed 8 DEPO-TESTOSTERONE 200 MG/ML OIL 019507 TESTOSTERONE CYPIONATE Inactive NAPROXEN 500 MG TABS 1 tablet by mouth twice daily 201 07/27/22 NAPROXEN 500 MG TABS 792702 NAPROXEN Inactive GABAPENTIN 300 MG CAPS 1 po qd x 2 days, then 1 po BID x 2 d ays, then 1 po TID GABAPENTIN 300 MG CAPS 465638 GABAPENTIN Inact amie ONETOUCH ULTRA BLUE STRP Test twice a day ONETOUCH ULTRA BLUE STRP GLUCOSE BLOOD Inactive NAPROXEN SODIUM 220 MG ORAL TABS 1 three times a day as needed 2 NAPROXEN SODIUM 220 MG ORAL TABS 828226 NAPROXEN SODIUM Inactive Immunizations Vaccine Administration Date Value Standard Floyd cription pneumococcal immunization administered Pneumovax 23 [CVX33] pneumococcal polysaccharide vaccine, 23 valent Seasonal influenza vaccine, injectable, containing preservative, for > 3 years old (Afluria, FluLaval, Fluzone, Fluvirin, Fluarix, Agriflu(>= 18 yo)) Fluzone (>3 yrs.) [[id number]] Influenza, seasonal, inject able Seasonal influenza vaccine, injectable, containing preservative, for > 3 years old (Afluria, FluLaval, Fluzone, Fluvirin, Fluarix, Agriflu(>= 18 yo)) Fluzone (>3 yrs.) [KQT597] Influenza, seasonal, inject able Vital Signs Date [...] - Chem istry sodium, serum 140 mmol/L 417-531 2953/05/05 potassium, serum 4.9 mmol/L 3.5-5.2 chloride, serum 99 mmol/L 98-107 carbon dioxide, venous blood 34.3 mmol/L 21.0-32 .0 blood glucose 132 mg/dL 65-110 calcium, serum 10.1 mg/dL 8.5-10.1 urea nitrogen, blood 23 mg/dL 7-18 creatinine, serum 2.00 mg/dL 0.60-1.30 Lab Report: CBC, HGBA1C, Renal Panel - C hemistry hemoglobin A1C, blood, as % of total hemoglobin 7.9 % 4.3-6.0 sodium, serum 139 mmol/L 598-740 5124/02/04 potassium, serum 5.4 mmol/L 3.5-5.2 chloride, serum [...] Panel - Chemistry sodium, serum 138 mmol/L 873-176 4898/11/23 carbon dioxide, venous blood 32.4 mmol/L 21.0-32 .0 potassium, serum 5.7 mmol/L 3.5-5.2 chloride, serum 98 mmol/L 98-107 blood glucose 136 mg/dL 65-110 urea nitrogen, blood 18 mg/dL 7-18 creatinine, serum 1.71 mg/dL 0.55-1.30 alanine aminotransferase (SGPT), serum 71 U/L 12-78 aspartate aminotransferase (SGOT), serum 34 U/L 15-37 calcium, serum 9.4 mg/dL 8.5-10.1 bilirubin, serum, total 0.40 mg/dL 0.00-1.00 cholesterol, serum 405 mg/dL 216-793 0580/11/23 triglyceride, serum, fasting 709 mg/dL 30-200 HDL [...] mg/dL Encounters Code Encounter Date Provider Facility CPT-65685 Level 4 Est. 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 Patient 15:42:12 CDT Baltazar Childers MD [facility] CPT-65004 Level 4 Est. Patient 11:29:55 CDT Baltazar Childers MD [facility] CPT-24514 Level 4 Est. Patient 14:15:19 CDT Baltazar Childers MD [facility] CPT-80499 Level 4 Est. Patient 12:20:13 CDT Baltazar Childers MD [facility] CPT-43192 Level 4 Est. Patient 14:52:45 AMBULETTE DRIVER Baltazar Childers MD [facility] CPT-06154 Level 4 Est. Patient 14:18:34 AMBULETTE DRIVER Baltazar Childers MD [facility] CPT-41807 Level 4 Est. Patient 15:18:29 CDT Baltazar Childers MD [facility] CPT-09583 Level 3 Est. Patient 12:45:34 CDT Baltazar Childers MD [facility] CPT-41233 Level 3 Est. Patient 10:10:11 CDT Baltazar Childers MD [facility] CPT-67440 Level 3 Est. Patient 14:07:50 CDT Baltazar Childers MD [facility] CPT-60488 Level 4 Est. Patient 12:26:10 AMBULETTE DRIVER Baltazar Childers MD [facility] CPT-15223 Level 4 Est. Patient 14:45:38 CDT Baltazar Childers MD [facility] CPT-97046 Level 4 New Patient 12:30:48 CDT Baltazar hinton MD [facility] Procedures Code Procedure Name Date Entry Date Standard Desc ription CPT-12279 Venipuncture Draw Fee 14:50:21 AMBULETTE DRIVER CPT-26950 Immunization Single Admin 17:35:35 CDT 2014 CPT-91268 Fluzone Quadrivalent preservative free ( >=3yrs.) 17:35:35 CDT CPT-79458 Venipuncture Draw Fee 12:10:27 AMBULETTE DRIVER CPT-54363 Fluzone Quadrivalent Intramuscular Suspe nsion 0.5 ML 10:49:13 CDT CPT-88206 First Vx Component - Ix admi n via ID IM or jet inj without physician counseling 15:17:19 AMBULETTE DRIVER CPT-72368 Pneumovax 23 15:17:19 AMBULETTE DRIVER CPT-06018 Pneumovax 14:52:45 AMBULETTE DRIVER CPT-43919 Venipuncture Draw Fee 14:06:30 AMBULETTE DRIVER CPT-000 Give Appropriate Flu Vaccine 14:18:34 AMBULETTE DRIVER 2 CPT-67459 Administration single or combination vac cine inc oral 14:46:00 AMBULETTE DRIVER CPT-91769 Influenza split virus > age 3 14:46:00 AMBULETTE DRIVER CPT-OV Office Visit 19:13:16 CDT CPT-09437 Zostavax 18:41:56 CDT CPT-40641 Administration single or combination vac cine inc oral 12:56:39 CDT CPT-91257 Zoster Vaccine (Zostavax) 12:56:39 CDT 2012 CPT-53061 Venipuncture Draw Fee 10:58:57 CDT CPT-71450 Sono pelvis non OB uterus ovaries cervix 17:45:04 CDT CPT-00015 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
--- OUTSIDE RECORDS SUMMARY | 2019-10-27 12:23 | XMS REPORT | Clinical Summary ---
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 Benign neoplasm of colon PERIPHERAL NEUROPATHY 356.9 [...] ronary atherosclerosis of unspecified type of vessel, [place] or graft OTH NONSPC ABN FINDNG RAD&OTH [...] Test twice a day GLUCO SE BLOOD 24843362045 No Longer Active Baltazar Childers MD Active TRUEPLUS LANCETS 33G MISC Test twice a day LANCET S 23701022289 Active Baltazar Childers MD Active TRUEDRAW LANCING DEVICE MISC Test twice a day L ANCET DEVICES 34275775534 Active Baltazar Childers MD Active TRUETRACK TEST STRP Test twice a day GLUCOSE BLOO D 21236399296 Active Baltazar Childers MD Active TRUETRACK BLOOD GLUCOSE W/DEVICE KIT Test twice a day BLOOD GLUCOSE MONITORING SUPPL 22171927016 Active Baltazar Childers MD Activ e HYDROCODONE-ACETAMINOPHEN 7.5-325 MG TABS Take 1 tab every 6-8 hour s PRN HYDROCODONE-ACETAMINOPHEN 11776320460 Active Gato Rae MD Active NORTRIPTYLINE HCL 50 MG CAPS 1 every night for neuropathy 4 NORTRIPTYLINE HCL 48694096178 Active Baltazar Childers MD Acti ve GABAPENTIN 300 MG CAPS 1 three times a day GABAPE NTIN 31734334218 Active Baltazar Childers MD Active GABAPENTIN 300 MG CAPS 1 po qd x 2 days, then 1 po BID x 2 d ays, then 1 po TID GABAPENTIN 42018054029 No Longer Active Baltazar silverman MD Active TRAMADOL HCL 50 MG TABS 1 twice a day as needed for pain TRAMADOL HCL 31821746206 Active Baltazar Childers MD Active NAPROXEN 500 MG TABS 1 tablet by mouth twice daily NAPROXEN 43250182372 No Longer Active Baltazar Childers MD Active PROAIR HFA 108 (90 BASE) MCG/ACT AERS 2 puffs four times a d ay as needed ALBUTEROL SULFATE 11615313891 Active Baltazar Childers MD Active DEPO-TESTOSTERONE 200 MG/ML OIL as directed RUFINO TOSTERONE CYPIONATE 01530717233 No Longer Active Baltazar Childers MD Active LIPITOR 20 MG TABS Take one by mouth daily in evening ATORVASTATIN CALCIUM 90275479106 No Longer Active Baltazar Childers MD Activ e CRESTOR 10 MG TABS 1 by mouth every day R OSUVASTATIN CALCIUM 36142608120 No Longer Active Baltazar Childers MD Activ e PHENTERMINE HCL 37.5 MG TABS Take one by mouth daily 2 PHENTERMINE HCL 97753800522 No Longer Active Baltazar Childers MD Activ e ROBAXIN-750 750 MG TABS Take one by mouth daily ME THOCARBAMOL 00811313240 Active Baltazar Childers MD Active TIZANIDINE HCL 4 MG TABS 1 daily as needed for muscle spasm 2011 TIZANIDINE HCL 67894965859 No Longer Active Dawna Salazar RN Active [id number] 50-325-40 MG TABS 1 four time s a day as needed for heacache [id number] 03188525142 Active Bella Suarez APRN Active SUMATRIPTAN SUCCINATE 100 MG TABS 1 tablet by mouth at onset of migraine as needed SUMATRIPTAN SUCCINATE 83126655439 Active Baltazar bynum MD Active LORATADINE 10 MG TABS Take one by mouth daily LORATADINE 52187218812 Active Baltazar Childers MD Active FUROSEMIDE 40 MG TABS Take one by mouth daily FUROSEMIDE 40976153728 Active Baltazar Childers MD Active LISINOPRIL 20 MG TABS Take one by mouth daily at bedtime LISINOPRIL 95665637529 Active Baltazar Childers MD Active OMEPRAZOLE 20 MG CPDR Take one by mouth daily OMEPRAZOLE 55596883255 Active Baltazar Childers MD Active HYDROXYZINE HCL 25 MG TABS Take one by mouth daily HYDROXYZINE HCL 09779149120 Active Baltazar Childers MD Active GLIPIZIDE 10 MG TABS 1 tablet by mouth twice daily GLIPIZIDE 87717740396 Active Baltazar Childers MD Active ALPRAZOLAM 1 MG TABS 1 tablet by mouth daily at bedtime for restles s leg ALPRAZOLAM 15568368479 Active Baltazar Childers MD Active METFORMIN HCL 1000 MG TABS Take one by mouth twice daily METFORMIN HCL 88900516878 Active Baltazar Childers MD Active TIZANIDINE HCL 4 MG TABS 1 daily as needed for muscle spasm 2011 TIZANIDINE HCL 4 MG TABS 735798 TIZANIDINE HCL Inactiv e PHENTERMINE HCL 37.5 MG TABS Take one by mouth daily 2 PHENTERMINE HCL 37.5 MG TABS 243769 PHENTERMINE HCL Inactive CRESTOR 10 MG TABS 1 by mouth every day C RESTOR 10 MG TABS ROSUVASTATIN CALCIUM Inactive LIPITOR 20 MG TABS Take one by mouth daily in evening LIPITOR 20 MG TABS 795412 ATORVASTATIN CALCIUM Inactive DEPO-TESTOSTERONE 200 MG/ML OIL as directed 8 DEPO-TESTOSTERONE 200 MG/ML OIL 193613 TESTOSTERONE CYPIONATE Inactive NAPROXEN 500 MG TABS 1 tablet by mouth twice daily 201 07/27/22 NAPROXEN 500 MG TABS 467757 NAPROXEN Inactive GABAPENTIN 300 MG CAPS 1 po qd x 2 days, then 1 po BID x 2 d ays, then 1 po TID GABAPENTIN 300 MG CAPS 372925 GABAPENTIN Inact amie ONETOUCH ULTRA BLUE STRP Test twice a day ONETOUCH ULTRA BLUE STRP GLUCOSE BLOOD Inactive Immunizations Vaccine Administration Date Value Standard Floyd cription pneumococcal immunization administered Pneumovax 23 [CVX33] pneumococcal polysaccharide vaccine, 23 valent Seasonal influenza vaccine, injectable, containing preservative, for > 3 years old (Afluria, FluLaval, Fluzone, Fluvirin, Fluarix, Agriflu(>= 18 yo)) Fluzone (>3 yrs.) [EYC125] Influenza, seasonal, inject able Seasonal influenza vaccine, injectable, containing preservative, for > 3 years old (Afluria, FluLaval, Fluzone, Fluvirin, Fluarix, Agriflu(>= 18 yo)) Fluzone (>3 yrs.) [AGZ333] Influenza, seasonal, inject able Vital Signs Date [...] - Chem istry sodium, serum 140 mmol/L 997-519 4547/05/05 potassium, serum 4.9 mmol/L 3.5-5.2 chloride, serum [...] Panel - Chemistry sodium, serum 139 mmol/L 452-852 9685/01/20 potassium, serum 5.3 mmol/L 3.5-5.2 chloride, serum [...] mg/g mg/g{creat} 0-29 cholesterol, serum 319 mg/dL 866-919 4221/08/21 triglyceride, serum, fasting 546 mg/dL 30-200 HDL cholesterol, serum 39 mg/dL 32-96 LDL cholesterol, serum 167.00 mg/dL 5.00-130.00 hemoglobin A1C, blood, as % of total hemoglobin 7.7 % 4.3-6.0 sodium, serum 138 mmol/L 423-669 2004/08/21 potassium, serum 4.3 mmol/L 3.5-5.2 chloride, serum [...] 0-19 Encounters Code Encounter Date Provider Facility CPT-59977 Level 4 Est. Patient 11:29:55 CDT Baltazar Childers MD [facility] CPT-79074 Level 4 Est. Patient 14:15:19 CDT Baltazar Childers MD [facility] CPT-44526 Level 4 Est. Patient 12:20:13 CDT Baltazar Childers MD [facility] CPT-86005 Level 4 Est. Patient 14:52:45 STATISTICAL TYPIST Baltazar Childers MD [facility] CPT-71878 Level 4 Est. Patient 14:18:34 STATISTICAL TYPIST Baltazar Childers MD [facility] CPT-01734 Level 4 Est. Patient 15:18:29 CDT Baltazar Childers MD [facility] CPT-30961 Level 3 Est. Patient 12:45:34 CDT Baltazar Childers MD [facility] CPT-05228 Level 3 Est. Patient 10:10:11 CDT Baltazar Childers MD [facility] CPT-72905 Level 3 Est. Patient 14:07:50 CDT Baltazar Childers MD [facility] CPT-23880 Level 4 Est. Patient 12:26:10 STATISTICAL TYPIST Baltazar Childers MD [facility] CPT-69660 Level 4 Est. Patient 14:45:38 CDT Baltazar Childers MD [facility] CPT-34043 Level 4 New Patient 12:30:48 CDT Baltazar hinton MD [facility] Procedures Code Procedure Name Date Entry Date Standard Desc ription CPT-39940 Venipuncture Draw Fee 12:10:27 STATISTICAL TYPIST CPT-83882 Fluzone Quadrivalent Intramuscular Suspe nsion 0.5 ML 10:49:13 CDT CPT-97600 First Vx Component - Ix admi n via ID IM or jet inj without physician counseling 15:17:19 STATISTICAL TYPIST CPT-48578 Pneumovax 15:17:19 STATISTICAL TYPIST CPT-12174 Pneumovax 14:52:45 STATISTICAL TYPIST CPT-83574 Venipuncture Draw Fee 14:06:30 STATISTICAL TYPIST CPT-000 Give Appropriate Flu Vaccine 14:18:34 STATISTICAL TYPIST 2 CPT-63051 Administration single or combination vac cine inc oral 14:46:00 STATISTICAL TYPIST CPT-19387 Influenza split virus > age 3 14:46:00 STATISTICAL TYPIST CPT-OV Office Visit 19:13:16 CDT CPT-96933 Zostavax 18:41:56 CDT CPT-74901 Administration single or combination vac cine inc oral 12:56:39 CDT CPT-97885 Zoster Vaccine (Zostavax) 12:56:39 CDT 2012 CPT-22615 Venipuncture Draw Fee 10:58:57 CDT CPT-17406 Sono pelvis non OB uterus ovaries cervix 17:45:04 CDT CPT-91447 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
--- OUTSIDE RECORDS SUMMARY | 2019-10-27 12:23 | XMS REPORT | Clinical Summary ---
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 Benign neoplasm of colon PERIPHERAL NEUROPATHY [...] ronary atherosclerosis of unspecified type of vessel, napaimute or graft OTH NONSPC ABN FINDNG RAD&OTH [...] a day to coat the stomach SUCRALFATE 33128713642 Active Baltazar Childers MD Active PEN NEEDLES 31G X 6 MM MISC use 1 daily INSULIN PEN NEEDLE 03832255583 Active Martita Herbert RMA Active TOUJEO SOLOSTAR 300 UNIT/ML SC SOPN 10 units SC daily INSULIN GLARGINE 91315445692 No Longer Active Martita Herbert RMA Active LANTUS SOLOSTAR 100 UNIT/ML SC SOPN 10 units SC daily INSULIN GLARGINE 60688755570 Active KENDALL Juarez Active NAPROXEN SODIUM 220 MG ORAL TABS 1 three times a day as needed 2 NAPROXEN SODIUM 77138086202 No Longer Active Baltazar Childers MD Active ATORVASTATIN CALCIUM 20 MG ORAL TABS Take 1 tab daily ATORVASTATIN CALCIUM 52746685333 Active KENDALL Juarez Active FUROSEMIDE 40 MG TABS Take one by mouth daily FUROSEMIDE 33164716933 Active KENDALL Juarez Active LISINOPRIL 20 MG TABS Take one by mouth daily at bedtime LISINOPRIL 02905100209 Active Baltazar Childers MD Active ONETOUCH ULTRA BLUE STRP Test twice a day GLUCO SE BLOOD 93319297089 No Longer Active Baltazar Childers MD Active TRUEPLUS LANCETS 33G MISC Test twice a day LANCET S 74779206313 Active KENDALL Juarez Active TRUEDRAW LANCING DEVICE MISC Test twice a day L ANCET DEVICES 76997620893 Active Baltazar Childers MD Active TRUETRACK TEST STRP Test twice a day GLUCOSE BLOO D 95662999350 Active KENDALL Juarez Active TRUETRACK BLOOD GLUCOSE W/DEVICE KIT Test twice a day BLOOD GLUCOSE MONITORING SUPPL 73230777323 Active Baltazar Childers MD Activ e HYDROCODONE-ACETAMINOPHEN 7.5-325 MG TABS Take 1 tab every 6-8 hour s PRN HYDROCODONE-ACETAMINOPHEN 13470922611 Active Baltazar Childers MD Active NORTRIPTYLINE HCL 50 MG CAPS 1 every night for neuropathy 4 NORTRIPTYLINE HCL 72300946606 Active KENDALL Juarez Acti ve GABAPENTIN 300 MG CAPS 1 three times a day GABAPE NTIN 32844642784 Active Baltazar Childers MD Active GABAPENTIN 300 MG CAPS 1 po qd x 2 days, then 1 po BID x 2 d ays, then 1 po TID GABAPENTIN 67217250335 No Longer Active Baltazar silverman MD Active TRAMADOL HCL 50 MG TABS 1 twice a day as needed for pain TRAMADOL HCL 04829113286 Active Baltazar Childers MD Active NAPROXEN 500 MG TABS 1 tablet by mouth twice daily NAPROXEN 71483009326 No Longer Active Baltazar Childers MD Active PROAIR HFA 108 (90 BASE) MCG/ACT AERS 2 puffs four times a d ay as needed ALBUTEROL SULFATE 84447194030 Active Baltazar Childers MD Active DEPO-TESTOSTERONE 200 MG/ML OIL as directed RUFINO TOSTERONE CYPIONATE 99319347232 No Longer Active Baltazar Childers MD Active LIPITOR 20 MG TABS Take one by mouth daily in evening ATORVASTATIN CALCIUM 43100845389 No Longer Active Baltazar Childers MD Activ e CRESTOR 10 MG TABS 1 by mouth every day R OSUVASTATIN CALCIUM 35333213838 No Longer Active Baltazar Childers MD Activ e PHENTERMINE HCL 37.5 MG TABS Take one by mouth daily 2 PHENTERMINE HCL 03978236962 No Longer Active Baltazar Childers MD Activ e ROBAXIN-750 750 MG TABS Take one by mouth daily ME THOCARBAMOL 97336091060 Active Baltazar Childers MD Active TIZANIDINE HCL 4 MG TABS 1 daily as needed for muscle spasm 2011 TIZANIDINE HCL 83516722870 No Longer Active Dawna Salazar RN Active [id number] 50-325-40 MG TABS 1 four time s a day as needed for heacache [id number] 24782441715 Active Baltazar Childers MD Active SUMATRIPTAN SUCCINATE 100 MG TABS 1 tablet by mouth at onset of migraine as needed SUMATRIPTAN SUCCINATE 87732982058 Active Bella STEPHEN RN Active LORATADINE 10 MG TABS Take one by mouth daily LORATADINE 17763881595 Active Baltazar Childers MD Active OMEPRAZOLE 20 MG CPDR Take one by mouth daily OMEPRAZOLE 00690263495 Active Argentina Lyons Active HYDROXYZINE HCL 25 MG TABS Take one by mouth daily HYDROXYZINE HCL 86662806157 Active Baltazar Childers MD Active GLIPIZIDE 10 MG TABS 1 tablet by mouth twice daily GLIPIZIDE 48945812605 Active KENDALL Juarez Active ALPRAZOLAM 1 MG TABS 1 tablet by mouth daily at bedtime for restles s leg ALPRAZOLAM 88617187787 Active Baltazar Childers MD Active METFORMIN HCL 1000 MG TABS Take one by mouth twice daily METFORMIN HCL 26832730686 Active Baltazar Childers MD Active TIZANIDINE HCL 4 MG TABS 1 daily as needed for muscle spasm 2011 TIZANIDINE HCL 4 MG TABS 407751 TIZANIDINE HCL Inactiv e PHENTERMINE HCL 37.5 MG TABS Take one by mouth daily 2 PHENTERMINE HCL 37.5 MG TABS 538120 PHENTERMINE HCL Inactive CRESTOR 10 MG TABS 1 by mouth every day C RESTOR 10 MG TABS 911337 ROSUVASTATIN CALCIUM Inactive LIPITOR 20 MG TABS Take one by mouth daily in evening LIPITOR 20 MG TABS 746528 ATORVASTATIN CALCIUM Inactive DEPO-TESTOSTERONE 200 MG/ML OIL as directed 8 DEPO-TESTOSTERONE 200 MG/ML OIL 600695 TESTOSTERONE CYPIONATE Inactive NAPROXEN 500 MG TABS 1 tablet by mouth twice daily 201 07/27/22 NAPROXEN 500 MG TABS 757074 NAPROXEN Inactive GABAPENTIN 300 MG CAPS 1 po qd x 2 days, then 1 po BID x 2 d ays, then 1 po TID GABAPENTIN 300 MG CAPS 527010 GABAPENTIN Inact amie ONETOUCH ULTRA BLUE STRP Test twice a day ONETOUCH ULTRA BLUE STRP GLUCOSE BLOOD Inactive NAPROXEN SODIUM 220 MG ORAL TABS 1 three times a day as needed 2 NAPROXEN SODIUM 220 MG ORAL TABS 432636 NAPROXEN SODIUM Inactive TOUJEO SOLOSTAR 300 UNIT/ML [...] Fluarix, Agriflu(>= 18 yo)) Fluzone (>3 yrs.) [[id number]] Influenza, seasonal, inject able Seasonal influenza vaccine, injectable, containing preservative, for > 3 years old (Afluria, FluLaval, Fluzone, Fluvirin, Fluarix, Agriflu(>= 18 yo)) Fluzone (>3 yrs.) [[id number]] Influenza, seasonal, inject able Vital Signs Date [...] C - Chemistry sodium, serum 139 mmol/L 975-566 2073/07/07 potassium, serum 4.5 mmol/L 3.5-5.2 chloride, serum [...] 7.9 % 4.3-6.0 sodium, serum 139 mmol/L 036-882 0278/02/04 potassium, serum 5.4 mmol/L 3.5-5.2 chloride, serum [...] Panel - Chemistry sodium, serum 138 mmol/L 881-125 8193/11/23 carbon dioxide, venous blood 32.4 mmol/L 21.0-32 .0 potassium, serum 5.7 mmol/L 3.5-5.2 chloride, serum 98 mmol/L 98-107 blood glucose 136 mg/dL 65-110 urea nitrogen, blood 18 mg/dL 7-18 creatinine, serum 1.71 mg/dL 0.55-1.30 alanine aminotransferase (SGPT), serum 71 U/L 12-78 aspartate aminotransferase (SGOT), serum 34 U/L 15-37 calcium, serum 9.4 mg/dL 8.5-10.1 bilirubin, serum, total 0.40 mg/dL 0.00-1.00 cholesterol, serum 405 mg/dL 849-899 1407/11/23 triglyceride, serum, fasting 709 mg/dL 30-200 HDL [...] Panel - Chemistry sodium, serum 141 mmol/L 989-353 2600/08/08 potassium, serum 4.9 mmol/L 3.5-5.2 chloride, serum [...] mg/dL Encounters Code Encounter Date Provider Facility CPT-42402 Level 4 Est. Patient 11:34:17 CDT Baltazar Childers MD [facility] CPT-07035 Level 3 Est. Patient 16:40:40 CDT Baltazar Childers MD [facility] CPT-22737 Level 4 Est. Patient 10:41:24 CDT Baltazar Childers MD [facility] CPT-15077 Level 4 Est. Patient 16:01:48 CDT Baltazar Childers MD [facility] CPT-76065 Level 4 Est. Patient 16:54:07 [employer]ATION [employer]SEL Baltazar Childers MD [facility] CPT-08207 Level 4 Est. Patient 15:42:12 CDT Baltazar Childers MD [facility] CPT-32083 Level 4 Est. Patient 11:29:55 CDT Baltazar Childers MD [facility] CPT-68163 Level 4 Est. Patient 14:15:19 CDT Baltazar Childers MD [facility] CPT-27402 Level 4 Est. Patient 12:20:13 CDT Baltazar Childers MD [facility] CPT-72254 Level 4 Est. Patient 14:52:45 [employer]ANT [employer]ATION COUNSEL Baltazar Childers MD [facility] CPT-24180 Level 4 Est. Patient 14:18:34 [employer]ANT [employer]PORATION COUNSEL Baltazar Childers MD [facility] CPT-11245 Level 4 Est. Patient 15:18:29 CDT Baltazar Childers MD [facility] CPT-42033 Level 3 Est. Patient 12:45:34 CDT Baltazar Childers MD [facility] CPT-70526 Level 3 Est. Patient 10:10:11 CDT Baltazar Childers MD [facility] CPT-97810 Level 3 Est. Patient 14:07:50 CDT Baltazar Childers MD [facility] CPT-09848 Level 4 Est. Patient 12:26:10 [employer]ATION COUNSEL Baltazar Childers MD [facility] CPT-58159 Level 4 Est. Patient 14:45:38 CDT Baltazar Childers MD [facility] CPT-04587 Level 4 New Patient 12:30:48 CDT Baltazar hinton MD [facility] Procedures Code Procedure Name Date Entry Date Standard Desc ription CPT-82805 Renal Panel - LAB USE ONLY 17:39:20 CDT 201 10/31/07 CPT-66503 CBC - LAB USE ONLY 17:39:20 CDT CPT-78980 Venipuncture Draw Fee 17:39:20 CDT CPT-80475 Venipuncture Draw Fee 14:33:30 CDT CPT-83703 Renal Panel - LAB USE ONLY 14:33:30 CDT 201 10/31/07 CPT-65168 CBC - LAB USE ONLY 14:33:29 CDT CPT-17222 Venipuncture Draw Fee 14:50:21 [employer]ANT [employer]PORATION COUNSEL CPT-41064 Immunization Single Admin 17:35:35 CDT 2014 CPT-34192 Fluzone Quadrivalent preservative free ( >=3yrs.) 17:35:35 CDT CPT-68323 Venipuncture Draw Fee 12:10:27 ASSISTANT [employer]PORATION COUNSEL CPT-34925 Fluzone Quadrivalent Intramuscular Suspe nsion 0.5 ML 10:49:13 CDT CPT-42989 First Vx Component - Ix admi n via ID IM or jet inj without physician counseling 15:17:19 [employer]ANT [employer]PORATION COUNSEL CPT-21501 Pneumovax 15:17:19 ASSISTANT [employer]PORATION COUNSEL CPT-11558 Pneumovax 14:52:45 ASSISTANT [employer]PORATION COUNSEL CPT-86157 Venipuncture Draw Fee 14:06:30 ASSISTANT [employer]PORATION COUNSEL CPT-000 Give Appropriate Flu Vaccine 14:18:34 ASSISTANT [employer]PORATION COUNSEL 2 CPT-22189 Administration single or combination vac cine inc oral 14:46:00 ASS[employer]ANT [employer]PORATION COUNSEL CPT-11965 Influenza split virus > age 3 14:46:00 ASSISTANT [employer]PORATION COUNSEL CPT-OV Office Visit 19:13:16 CDT CPT-27474 Zostavax 18:41:56 CDT CPT-34108 Administration single or combination vac cine inc oral 12:56:39 CDT CPT-62826 Zoster Vaccine (Zostavax) 12:56:39 CDT 2012 CPT-34743 Venipuncture Draw Fee 10:58:57 CDT CPT-74478 Sono pelvis non OB uterus ovaries cervix 17:45:04 CDT CPT-95214 Sono retroperitoneal complete kidneys an d bladder 17:14:36 CDT CPT-OV Office Visit 14:59:38 ASS[employer]ANT [employer]ATION COUNSEL CPT-J1070 Depo Testosterone 100 mg 14:50:13 CDT 03/05 CPT-16097 Abx/Therapy Injection 14:50:13 CDT CPT-59472 Administration single or combination vac cine inc oral 14:34:43 CDT CPT-57980 Influenza split virus > age 3 14:34:43 CDT CPT-J1070 Depo Testosterone 100 mg 17:37:13 CDT 01/11 CPT-04710 Abx/Therapy Injection 17:37:13 CDT CPT-62352 Venipuncture Draw Fee 16:30:13 CDT CPT-21235 Venipuncture Draw Fee 16:29:43 CDT CPT-J1070 Depo Testosterone 100 mg 14:45:38 CDT 01/11
--- OUTSIDE RECORDS SUMMARY | 2019-10-27 12:24 | XMS REPORT | Clinical Summary ---
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 Benign neoplasm of colon PERIPHERAL NEUROPATHY 356.9 [...] ronary atherosclerosis of unspecified type of vessel, burns paiute or graft OTH NONSPC ABN FINDNG [...] MISC Test twice a day LANCET S 50483509422 Active Baltazar Childers MD Active TRUEDRAW LANCING DEVICE MISC Test twice a day L ANCET DEVICES 25685998209 Active Baltazar Childers MD Active TRUETRACK TEST STRP Test twice a day GLUCOSE BLOO D 59538951461 Active Baltazar Childers MD Active TRUETRACK BLOOD GLUCOSE W/DEVICE KIT Test twice a day BLOOD GLUCOSE MONITORING SUPPL 95139853794 Active Bella Suarez STOCK ROLLER Active HYDROCODONE-ACETAMINOPHEN 7.5-325 MG TABS Take 1 tab every 6-8 hour s PRN HYDROCODONE-ACETAMINOPHEN 38978212813 Active Baltazar Childers MD Active NORTRIPTYLINE HCL 50 MG CAPS 1 every night for neuropathy 4 NORTRIPTYLINE HCL 42341976220 Active Baltazar Childers MD Acti ve GABAPENTIN 300 MG CAPS 1 three times a day GABAPE NTIN 66568990361 Active Baltazar Childers MD Active GABAPENTIN 300 MG CAPS 1 po qd x 2 days, then 1 po BID x 2 d ays, then 1 po TID GABAPENTIN 03404779488 No Longer Active Baltazar silverman MD Active TRAMADOL HCL 50 MG TABS 1 twice a day as needed for pain TRAMADOL HCL 96241812757 Active Baltazar Childers MD Active NAPROXEN 500 MG TABS 1 tablet by mouth twice daily NAPROXEN 33334522351 No Longer Active Baltazar Childers MD Active PROAIR HFA 108 (90 BASE) MCG/ACT AERS 2 puffs four times a d ay as needed ALBUTEROL SULFATE 97149822111 Active Baltazar Childers MD Active DEPO-TESTOSTERONE 200 MG/ML OIL as directed RUFINO TOSTERONE CYPIONATE 99268612954 No Longer Active Baltazar Childers MD Active LIPITOR 20 MG TABS Take one by mouth daily in evening ATORVASTATIN CALCIUM 62029814842 No Longer Active Baltazar Childers MD Activ e CRESTOR 10 MG TABS 1 by mouth every day R OSUVASTATIN CALCIUM 86396773689 No Longer Active Baltazar Childers MD Activ e PHENTERMINE HCL 37.5 MG TABS Take one by mouth daily 2 PHENTERMINE HCL 46789643725 No Longer Active Baltazar Childers MD Activ e ROBAXIN-750 750 MG TABS Take one by mouth daily ME THOCARBAMOL 64743278460 Active Baltazar Childers MD Active TIZANIDINE HCL 4 MG TABS 1 daily as needed for muscle spasm 2011 TIZANIDINE HCL 87614119146 No Longer Active Dawna Salazar RN Active ONETOUCH ULTRA BLUE STRP Test twice a day GLUCO SE BLOOD 38394607200 Active Baltazar Childers MD Active [id number] 50-325-40 MG TABS 1 four time s a day as needed for heacache [id number] 85480335462 Active Baltazar Childers MD Active SUMATRIPTAN SUCCINATE 100 MG TABS 1 tablet by mouth at onset of migraine as needed SUMATRIPTAN SUCCINATE 71875067879 Active Baltazar barron MD Active LORATADINE 10 MG TABS Take one by mouth daily LORATADINE 81938881919 Active Baltazar Childers MD Active FUROSEMIDE 40 MG TABS Take one by mouth daily FUROSEMIDE 88809731931 Active Baltazar Childers MD Active LISINOPRIL 20 MG TABS Take one by mouth daily at bedtime LISINOPRIL 27229615780 Active Baltazar Childers MD Active OMEPRAZOLE 20 MG CPDR Take one by mouth daily OMEPRAZOLE 41137502531 Active Baltazar Childers MD Active HYDROXYZINE HCL 25 MG TABS Take one by mouth daily HYDROXYZINE HCL 98352819129 Active Baltazar Childers MD Active GLIPIZIDE 10 MG TABS 1 tablet by mouth twice daily GLIPIZIDE 40698505727 Active Baltazar Childers MD Active ALPRAZOLAM 1 MG TABS 1 tablet by mouth daily at bedtime for restles s leg ALPRAZOLAM 73632633972 Active Baltazar Childers MD Active METFORMIN HCL 1000 MG TABS Take one by mouth twice daily METFORMIN HCL 11785536803 Active Baltazar Childers MD Active TIZANIDINE HCL 4 MG TABS 1 daily as needed for muscle spasm 2011 TIZANIDINE HCL 4 MG TABS 613901 TIZANIDINE HCL Inactiv e PHENTERMINE HCL 37.5 MG TABS Take one by mouth daily 2 PHENTERMINE HCL 37.5 MG TABS 305283 PHENTERMINE HCL Inactive CRESTOR 10 MG TABS 1 by mouth every day C RESTOR 10 MG TABS ROSUVASTATIN CALCIUM Inactive LIPITOR 20 MG TABS Take one by mouth daily in evening LIPITOR 20 MG TABS 545669 ATORVASTATIN CALCIUM Inactive DEPO-TESTOSTERONE 200 MG/ML OIL as directed 8 DEPO-TESTOSTERONE 200 MG/ML OIL 813398 TESTOSTERONE CYPIONATE Inactive NAPROXEN 500 MG TABS 1 tablet by mouth twice daily 201 07/27/22 NAPROXEN 500 MG TABS 781019 NAPROXEN Inactive GABAPENTIN 300 MG CAPS 1 po qd x 2 days, then 1 po BID x 2 d ays, then 1 po TID GABAPENTIN 300 MG CAPS 230488 GABAPENTIN Inact amie Immunizations Vaccine Administration Date Value Standard Floyd cription pneumococcal immunization administered Pneumovax 23 [CVX33] pneumococcal polysaccharide vaccine, 23 valent Seasonal influenza vaccine, injectable, containing preservative, for > 3 years old (Afluria, FluLaval, Fluzone, Fluvirin, Fluarix, Agriflu(>= 18 yo)) Fluzone (>3 yrs.) [HCC854] Influenza, seasonal, inject able Seasonal influenza vaccine, injectable, containing preservative, for > 3 years old (Afluria, FluLaval, Fluzone, Fluvirin, Fluarix, Agriflu(>= 18 yo)) Fluzone (>3 yrs.) [[id number]] Influenza, seasonal, inject able Vital Signs Date [...] - Chem istry sodium, serum 140 mmol/L 942-184 2600/05/05 potassium, serum 4.9 mmol/L 3.5-5.2 chloride, serum [...] Panel - Chemistry sodium, serum 139 mmol/L 942-237 4882/01/20 potassium, serum 5.3 mmol/L 3.5-5.2 chloride, serum [...] mg/g mg/g{creat} 0-29 cholesterol, serum 319 mg/dL 452-881 5876/08/21 triglyceride, serum, fasting 546 mg/dL 30-200 HDL cholesterol, serum 39 mg/dL 32-96 LDL cholesterol, serum 167.00 mg/dL 5.00-130.00 hemoglobin A1C, blood, as % of total hemoglobin 7.7 % 4.3-6.0 sodium, serum 138 mmol/L 950-389 5080/08/21 potassium, serum 4.3 mmol/L 3.5-5.2 chloride, serum [...] 0-19 Encounters Code Encounter Date Provider Facility CPT-77556 Level 4 Est. Patient 11:29:55 CDT Baltazar Childers MD [facility] CPT-45889 Level 4 Est. Patient 14:15:19 CDT Baltazar Childers MD [facility] CPT-40153 Level 4 Est. Patient 12:20:13 CDT Baltazar Childers MD [facility] CPT-97187 Level 4 Est. 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 Patient 14:18:34 CONTROL CLERK REPAIRS Baltazar Childers MD [facility] CPT-94428 Level 4 Est. Patient 15:18:29 CDT Baltazar Childers MD [facility] CPT-59090 Level 3 Est. Patient 12:45:34 CDT Baltazar Childers MD [facility] CPT-13110 Level 3 Est. Patient 10:10:11 CDT Baltazar Childers MD [facility] CPT-53891 Level 3 Est. Patient 14:07:50 CDT Baltazar Childers MD [facility] CPT-45485 Level 4 Est. Patient 12:26:10 CONTROL CLERK REPAIRS Baltazar Childers MD [facility] CPT-52101 Level 4 Est. Patient 14:45:38 CDT Baltazar Childers MD [facility] CPT-74084 Level 4 New Patient 12:30:48 CDT Baltazar hinton MD [facility] Procedures Code Procedure Name Date Entry Date Standard Desc ription CPT-67915 Venipuncture Draw Fee 12:10:27 [employer]OL CLERK REPAIRS CPT-53026 Fluzone Quadrivalent Intramuscular Suspe nsion 0.5 ML 10:49:13 CDT CPT-16709 First Vx Component - Ix admi n via ID IM or jet inj without physician counseling 15:17:19 [employer]OL CLERK REPAIRS CPT-20667 Pneumovax 15:17:19 [employer]OL CLERK REPAIRS CPT-95299 Pneumovax 14:52:45 [employer]OL CLERK REPAIRS CPT-06367 Venipuncture Draw Fee 14:06:30 CONTROL CLERK REPAIRS CPT-000 Give Appropriate Flu Vaccine 14:18:34 CONTROL CLERK REPAIRS 2 CPT-30865 Administration single or combination vac cine inc oral 14:46:00 CONTROL CLERK REPAIRS CPT-59739 Influenza split virus > age 3 14:46:00 CONTROL CLERK REPAIRS CPT-OV Office Visit 19:13:16 CDT CPT-76536 Zostavax 18:41:56 CDT CPT-29805 Administration single or combination vac cine inc oral 12:56:39 CDT CPT-56685 Zoster Vaccine (Zostavax) 12:56:39 CDT 2012 CPT-56748 Venipuncture Draw Fee 10:58:57 CDT CPT-79791 Sono pelvis non OB uterus ovaries cervix 17:45:04 CDT CPT-35063 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
--- OUTSIDE RECORDS SUMMARY | 2019-10-27 12:24 | XMS REPORT | Clinical Summary ---
Author Author Admin, Elba Lance [facility] Address Unknown Phone Unavailable Allergies, Adverse 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 [employer] Benign neoplasm of colon PERIPHERAL NEUROPATHY 356.9 [...] atherosclerosis of unspecified type of vessel, [place] or graft OTH NONSPC ABN FINDNG RAD&OTH [...] a day as needed 2 NAPROXEN SODIUM 71596764203 No Longer Active Baltazar Childers MD Active ATORVASTATIN CALCIUM 20 MG ORAL TABS Take 1 tab daily ATORVASTATIN CALCIUM 95172481249 Active KENDALL Juarez Active FUROSEMIDE 40 MG TABS Take one by mouth daily FUROSEMIDE 63831411383 Active Baltazar Childers MD Active LISINOPRIL 20 MG TABS Take one by mouth daily at bedtime LISINOPRIL 26563515210 Active KENDALL Juarez Active ONETOUCH ULTRA BLUE STRP Test twice a day GLUCO SE BLOOD 30311997787 No Longer Active Baltazar Childers MD Active TRUEPLUS LANCETS 33G MISC Test twice a day LANCET S 67995484118 Active KENDALL Juarez Active TRUEDRAW LANCING DEVICE MISC Test twice a day L ANCET DEVICES 37010302828 Active Baltazar Childers MD Active TRUETRACK TEST STRP Test twice a day GLUCOSE BLOO D 17074363692 Active Baltazar Childers MD Active TRUETRACK BLOOD GLUCOSE W/DEVICE KIT Test twice a day BLOOD GLUCOSE MONITORING SUPPL 76010376668 Active Baltazar Childers MD Activ e HYDROCODONE-ACETAMINOPHEN 7.5-325 MG TABS Take 1 tab every 6-8 hour s PRN HYDROCODONE-ACETAMINOPHEN 26632796871 Active Baltazar Childers MD Active NORTRIPTYLINE HCL 50 MG CAPS 1 every night for neuropathy 4 NORTRIPTYLINE HCL 95659375073 Active Baltazar Childers MD Acti ve GABAPENTIN 300 MG CAPS 1 three times a day GABAPE NTIN 60669326078 Active KENDALL Juarez Active GABAPENTIN 300 MG CAPS 1 po qd x 2 days, then 1 po BID x 2 d ays, then 1 po TID GABAPENTIN 02047325459 No Longer Active Baltazar silverman MD Active TRAMADOL HCL 50 MG TABS 1 twice a day as needed for pain TRAMADOL HCL 53074347884 Active Baltazar Childers MD Active NAPROXEN 500 MG TABS 1 tablet by mouth twice daily NAPROXEN 80632278390 No Longer Active Baltazar Childers MD Active PROAIR HFA 108 (90 BASE) MCG/ACT AERS 2 puffs four times a d ay as needed ALBUTEROL SULFATE 10129106060 Active KENDALL Juarez Active DEPO-TESTOSTERONE 200 MG/ML OIL as directed RUFINO TOSTERONE CYPIONATE 63599609190 No Longer Active Baltazar Childers MD Active LIPITOR 20 MG TABS Take one by mouth daily in evening ATORVASTATIN CALCIUM 19129453658 No Longer Active Baltazar Childers MD Activ e CRESTOR 10 MG TABS 1 by mouth every day R OSUVASTATIN CALCIUM 45097094023 No Longer Active Baltazar Childers MD Activ e PHENTERMINE HCL 37.5 MG TABS Take one by mouth daily 2 PHENTERMINE HCL 17197583620 No Longer Active Baltazar Childers MD Activ e ROBAXIN-750 750 MG TABS Take one by mouth daily ME THOCARBAMOL 39417053058 Active Baltazar Childers MD Active TIZANIDINE HCL 4 MG TABS 1 daily as needed for muscle spasm 2011 TIZANIDINE HCL 39106368119 No Longer Active Dawna Salazar RN Active [id number]-DTJD-[id number] 50-325-40 MG TABS 1 four time s a day as needed for heacache [id number] 08565211799 Active Baltazar Childers MD Active SUMATRIPTAN SUCCINATE 100 MG TABS 1 tablet by mouth at onset of migraine as needed SUMATRIPTAN SUCCINATE 91617262769 Active KENDALL Juarez Active LORATADINE 10 MG TABS Take one by mouth daily LORATADINE 27886421722 Active Baltazar Childers MD Active OMEPRAZOLE 20 MG CPDR Take one by mouth daily OMEPRAZOLE 16436839215 Active Baltazar Childers MD Active HYDROXYZINE HCL 25 MG TABS Take one by mouth daily HYDROXYZINE HCL 90681229883 Active Baltazar Childers MD Active GLIPIZIDE 10 MG TABS 1 tablet by mouth twice daily GLIPIZIDE 83862226370 Active Bella Suarez APRN Active ALPRAZOLAM 1 MG TABS 1 tablet by mouth daily at bedtime for restles s leg ALPRAZOLAM 41755141857 Active Baltazar Childers MD Active METFORMIN HCL 1000 MG TABS Take one by mouth twice daily METFORMIN HCL 58751166865 Active Baltazar Childers MD Active TIZANIDINE HCL 4 MG TABS 1 daily as needed for muscle spasm 2011 TIZANIDINE HCL 4 MG TABS 210303 TIZANIDINE HCL Inactiv e PHENTERMINE HCL 37.5 MG TABS Take one by mouth daily 2 PHENTERMINE HCL 37.5 MG TABS 120884 PHENTERMINE HCL Inactive CRESTOR 10 MG TABS 1 by mouth every day C RESTOR 10 MG TABS ROSUVASTATIN CALCIUM Inactive LIPITOR 20 MG TABS Take one by mouth daily in evening LIPITOR 20 MG TABS 546574 ATORVASTATIN CALCIUM Inactive DEPO-TESTOSTERONE 200 MG/ML OIL as directed 8 DEPO-TESTOSTERONE 200 MG/ML OIL 395229 TESTOSTERONE CYPIONATE Inactive NAPROXEN 500 MG TABS 1 tablet by mouth twice daily 201 07/27/22 NAPROXEN 500 MG TABS 735680 NAPROXEN Inactive GABAPENTIN 300 MG CAPS 1 po qd x 2 days, then 1 po BID x 2 d ays, then 1 po TID GABAPENTIN 300 MG CAPS 928822 GABAPENTIN Inact amie ONETOUCH ULTRA BLUE STRP Test twice a day ONETOUCH ULTRA BLUE STRP GLUCOSE BLOOD Inactive NAPROXEN SODIUM 220 MG ORAL TABS 1 three times a day as needed 2 NAPROXEN SODIUM 220 MG ORAL TABS 214822 NAPROXEN SODIUM Inactive Immunizations Vaccine Administration Date Value Standard Floyd cription pneumococcal immunization administered Pneumovax 23 [CVX33] pneumococcal polysaccharide vaccine, 23 valent Seasonal influenza vaccine, injectable, containing preservative, for > 3 years old (Afluria, FluLaval, Fluzone, Fluvirin, Fluarix, Agriflu(>= 18 yo)) Fluzone (>3 yrs.) [[id number]] Influenza, seasonal, inject able Seasonal influenza vaccine, injectable, containing preservative, for > 3 years old (Afluria, FluLaval, Fluzone, Fluvirin, Fluarix, Agriflu(>= 18 yo)) Fluzone (>3 yrs.) [[id number]] Influenza, seasonal, inject able Vital Signs Date [...] - Chem istry sodium, serum 140 mmol/L 552-512 2511/05/05 potassium, serum 4.9 mmol/L 3.5-5.2 chloride, serum 99 mmol/L 98-107 carbon dioxide, venous blood 34.3 mmol/L 21.0-32 .0 blood glucose 132 mg/dL 65-110 calcium, serum 10.1 mg/dL 8.5-10.1 urea nitrogen, blood 23 mg/dL 7-18 creatinine, serum 2.00 mg/dL 0.60-1.30 Lab Report: CBC, HGBA1C, Renal Panel - C hemistry hemoglobin A1C, blood, as % of total hemoglobin 7.9 % 4.3-6.0 sodium, serum 139 mmol/L 251-588 4596/02/04 potassium, serum 5.4 mmol/L 3.5-5.2 chloride, serum [...] Panel - Chemistry sodium, serum 138 mmol/L 266-535 2157/11/23 carbon dioxide, venous blood 32.4 mmol/L 21.0-32 .0 potassium, serum 5.7 mmol/L 3.5-5.2 chloride, serum 98 mmol/L 98-107 blood glucose 136 mg/dL 65-110 urea nitrogen, blood 18 mg/dL 7-18 creatinine, serum 1.71 mg/dL 0.55-1.30 alanine aminotransferase (SGPT), serum 71 U/L 12-78 aspartate aminotransferase (SGOT), serum 34 U/L 15-37 calcium, serum 9.4 mg/dL 8.5-10.1 bilirubin, serum, total 0.40 mg/dL 0.00-1.00 cholesterol, serum 405 mg/dL 168-023 8719/11/23 triglyceride, serum, fasting 709 mg/dL 30-200 HDL [...] mg/dL Encounters Code Encounter Date Provider Facility CPT-68872 Level 4 Est. Patient 16:01:48 CDT Baltazar Childers MD [facility] CPT-83148 Level 4 Est. Patient 16:54:07 TUBE HEATER Baltazar Childers MD [facility] CPT-32800 Level 4 Est. Patient 15:42:12 CDT Baltazar Childers MD [facility] CPT-74811 Level 4 Est. Patient 11:29:55 CDT Baltazar Childers MD [facility] CPT-60392 Level 4 Est. Patient 14:15:19 CDT Baltazar Childers MD [facility] CPT-34718 Level 4 Est. Patient 12:20:13 CDT Baltazar Childers MD [facility] CPT-78800 Level 4 Est. Patient 14:52:45 TUBE HEATER Baltazar Childers MD [facility] CPT-12958 Level 4 Est. Patient 14:18:34 TUBE HEATER Baltazar Childers MD [facility] CPT-65772 Level 4 Est. Patient 15:18:29 CDT Baltazar Childers MD [facility] CPT-60375 Level 3 Est. Patient 12:45:34 CDT Baltazar Childers MD [facility] CPT-97037 Level 3 Est. Patient 10:10:11 CDT Baltazar Childers MD [facility] CPT-56335 Level 3 Est. Patient 14:07:50 CDT Baltazar Childers MD [facility] CPT-90938 Level 4 Est. Patient 12:26:10 TUBE HEATER Baltazar Childers MD [facility] CPT-64133 Level 4 Est. Patient 14:45:38 CDT Baltazar Childers MD [facility] CPT-54208 Level 4 New Patient 12:30:48 CDT Baltazar hinton MD [facility] Procedures Code Procedure Name Date Entry Date Standard Desc ription CPT-33630 Venipuncture Draw Fee 14:50:21 TUBE HEATER CPT-99545 Immunization Single Admin 17:35:35 CDT 2014 CPT-88884 Fluzone Quadrivalent preservative free ( >=3yrs.) 17:35:35 CDT CPT-89684 Venipuncture Draw Fee 12:10:27 TUBE HEATER CPT-00835 Fluzone Quadrivalent Intramuscular Suspe nsion 0.5 ML 10:49:13 CDT CPT-20636 First Vx Component - Ix admi n via ID IM or jet inj without physician counseling 15:17:19 TUBE HEATER CPT-08284 Pneumovax 23 15:17:19 TUBE HEATER CPT-52176 Pneumovax 14:52:45 TUBE HEATER CPT-66770 Venipuncture Draw Fee 14:06:30 TUBE HEATER CPT-000 Give Appropriate Flu Vaccine 14:18:34 TUBE HEATER 2 CPT-71431 Administration single or combination vac cine inc oral 14:46:00 TUBE HEATER CPT-00842 Influenza split virus > age 3 14:46:00 TUBE HEATER CPT-OV Office Visit 19:13:16 CDT CPT-03156 Zostavax 18:41:56 CDT CPT-98098 Administration single or combination vac cine inc oral 12:56:39 CDT CPT-81272 Zoster Vaccine (Zostavax) 12:56:39 CDT 2012 CPT-54280 Venipuncture Draw Fee 10:58:57 CDT CPT-83610 Sono pelvis non OB uterus ovaries cervix 17:45:04 CDT CPT-94878 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
--- OUTSIDE RECORDS SUMMARY | 2019-10-27 12:24 | XMS REPORT | Clinical Summary ---
Author Author Admin, Elba Lance [facility] Address Unknown Phone Unavailable Allergies, Adverse Reactions, [...] mention of status migrainosus HYPERLIPIDEMIA 272.4 Active Baltazra Childers MD Other and unspecified hyperlipidemia CARPAL TUNNEL SYNDROME 354.0 Active Baltazar silverman MD Carpal tunnel syndrome OBESITY 278.00 Active Baltazar Childers MD Obesity, unspecified ADD 314.00 Active Baltazar Childers MD Attention deficit disorder of childhood without mention of hyperactivity DECREASED LIBIDO 799.81 Active Baltazar Wayne Decreased libido COLON POLYPS 211.3 Resolved Lolis Thomas [employer] Benign neoplasm of colon PERIPHERAL NEUROPATHY [...] atherosclerosis of unspecified type of vessel, [place] or graft OTH NONSPC ABN FINDNG RAD&OTH [...] 1 tablet daily for 4 days AZITHROMYCIN 51263752497 No Longer Active Yousif Childers MD Active LANTUS SOLOSTAR 100 UNIT/ML SC SOPN 30 units SC daily INSULIN GLARGINE 70303298177 Active Baltazar Childers MD Active AMLODIPINE BESYLATE 5 MG ORAL TABS 1 tab daily for HTN AMLODIPINE BESYLATE 22736835408 Active Baltazar Childers MD Active SYNTHROID 0.1 MG TAB 1 tablet by mouth daily LE VOTHYROXINE SODIUM 76659779321 Active Baltazar Childers MD Active GLIPIZIDE 10 MG TAB take 2 tablets twice daily GLIPIZIDE 99931957038 Active Baltazar Childers MD Active SUCRALFATE 1 GM TABS 1 four times a day to coat the stomach 2015 SUCRALFATE 31374029444 No Longer Active Baltazar Childers MD Active PEN NEEDLES 31G X 6 MM MISC use 1 daily INSULIN PEN NEEDLE 67517056502 Active KENDALL Juarez Active TOUJEO SOLOSTAR 300 UNIT/ML SC SOPN 10 units SC daily INSULIN GLARGINE 08540614713 No Longer Active Martita ARGUETA Active NAPROXEN SODIUM 220 MG ORAL TABS 1 three times a day as needed 2 NAPROXEN SODIUM 46967080328 No Longer Active Baltazar Childers MD Active ATORVASTATIN CALCIUM 20 MG ORAL TABS Take 1 tab daily ATORVASTATIN CALCIUM 61928697541 Active Baltazar Childers MD Active FUROSEMIDE 40 MG TABS Take one by mouth daily FUROSEMIDE 85158018442 Active Baltazar Childers MD Active LISINOPRIL 20 MG TABS Take one by mouth daily at bedtime LISINOPRIL 30815014836 No Longer Active Baltazar Childers MD Active ONETOUCH ULTRA BLUE STRP Test twice a day GLUCO SE BLOOD 75991273699 No Longer Active Baltazar Childers MD Active TRUEPLUS LANCETS 33G MISC Test twice a day LANCET S 28346521246 Active KENDALL Juarez Active TRUEDRAW LANCING DEVICE MISC Test twice a day L ANCET DEVICES 68344530007 Active Baltazar Childers MD Active TRUETRACK TEST STRP Test twice a day GLUCOSE BLOO D 88975907704 Active KENDALL Juarez Active TRUETRACK BLOOD GLUCOSE W/DEVICE KIT Test twice a day BLOOD GLUCOSE MONITORING SUPPL 90604523784 Active Baltazar Childers MD Activ e HYDROCODONE-ACETAMINOPHEN 7.5-325 MG TABS Take 1 tab every 6-8 hour s PRN HYDROCODONE-ACETAMINOPHEN 68523675267 Active Baltazar Childers MD Active NORTRIPTYLINE HCL 50 MG CAPS 1 every night for neuropathy 4 NORTRIPTYLINE HCL 24336904548 Active Baltazar Childers MD Acti ve GABAPENTIN 300 MG CAPS 1 three times a day GABAPE NTIN 36021500761 Active Baltazar Childers MD Active GABAPENTIN 300 MG CAPS 1 po qd x 2 days, then 1 po BID x 2 d ays, then 1 po TID GABAPENTIN 63738637880 No Longer Active Baltazar silverman MD Active TRAMADOL HCL 50 MG TABS 1 twice a day as needed for pain TRAMADOL HCL 73082138493 Active Baltazar Childers MD Active NAPROXEN 500 MG TABS 1 tablet by mouth twice daily NAPROXEN 59081220192 No Longer Active Baltazar Childers MD Active PROAIR HFA 108 (90 BASE) MCG/ACT AERS 2 puffs four times a d ay as needed ALBUTEROL SULFATE 70936228588 Active Baltazar Childers MD Active DEPO-TESTOSTERONE 200 MG/ML OIL as directed RUFINO TOSTERONE CYPIONATE 69335821441 No Longer Active Baltazar Childers MD Active LIPITOR 20 MG TABS Take one by mouth daily in evening ATORVASTATIN CALCIUM 68602681092 No Longer Active Baltazar Childers MD Activ e CRESTOR 10 MG TABS 1 by mouth every day R OSUVASTATIN CALCIUM 99247255270 No Longer Active Baltazar Childers MD Activ e PHENTERMINE HCL 37.5 MG TABS Take one by mouth daily 2 PHENTERMINE HCL 88887797034 No Longer Active Baltazar Childers MD Activ e ROBAXIN-750 750 MG TABS Take one by mouth daily ME THOCARBAMOL 90065574452 Active Baltazar Childers MD Active TIZANIDINE HCL 4 MG TABS 1 daily as needed for muscle spasm 2011 TIZANIDINE HCL 25711709510 No Longer Active Dawna Salazar RN Active [id number]-EXPMBDLD 50-325-40 MG TABS 1 four time s a day as needed for heacache [id number] 94237477490 Active KENDALL Juarez Active SUMATRIPTAN SUCCINATE 100 MG TABS 1 tablet by mouth at onset of migraine as needed SUMATRIPTAN SUCCINATE 90123338430 Active Baltazar bynum MD Active LORATADINE 10 MG TABS Take one by mouth daily LORATADINE 45117039970 Active Baltazar Childers MD Active OMEPRAZOLE 20 MG CPDR Take one by mouth daily OMEPRAZOLE 02480925425 Active Baltazar Childers MD Active HYDROXYZINE HCL 25 MG TABS Take one by mouth daily HYDROXYZINE HCL 04792843714 Active Baltazar Childers MD Active ALPRAZOLAM 1 MG TABS 1 tablet by mouth daily at bedtime for restles s leg ALPRAZOLAM 43495519678 Active Baltazar Childers MD Active METFORMIN HCL 1000 MG TABS Take one by mouth twice daily METFORMIN HCL 05038989943 Active Baltazar Childers MD Active TIZANIDINE HCL 4 MG TABS 1 daily as needed for muscle spasm 2011 TIZANIDINE HCL 4 MG TABS 835603 TIZANIDINE HCL Inactiv e PHENTERMINE HCL 37.5 MG TABS Take one by mouth daily 2 PHENTERMINE HCL 37.5 MG TABS 597124 PHENTERMINE HCL Inactive CRESTOR 10 MG TABS 1 by mouth every day C RESTOR 10 MG TABS 368394 ROSUVASTATIN CALCIUM Inactive LIPITOR 20 MG TABS Take one by mouth daily in evening LIPITOR 20 MG TABS 312920 ATORVASTATIN CALCIUM Inactive DEPO-TESTOSTERONE 200 MG/ML OIL as directed 8 DEPO-TESTOSTERONE 200 MG/ML OIL 025569 TESTOSTERONE CYPIONATE Inactive NAPROXEN 500 MG TABS 1 tablet by mouth twice daily 201 07/27/22 NAPROXEN 500 MG TABS 485590 NAPROXEN Inactive GABAPENTIN 300 MG CAPS 1 po qd x 2 days, then 1 po BID x 2 d ays, then 1 po TID GABAPENTIN 300 MG CAPS 270464 GABAPENTIN Inact amie ONETOUCH ULTRA BLUE STRP Test twice a day ONETOUCH ULTRA BLUE STRP GLUCOSE BLOOD Inactive NAPROXEN SODIUM 220 MG ORAL TABS 1 three times a day as needed 2 NAPROXEN SODIUM 220 MG ORAL TABS 508813 NAPROXEN SODIUM Inactive TOUJEO SOLOSTAR 300 UNIT/ML SC SOPN 10 units SC daily TOUJEO SOLOSTAR 300 UNIT/ML SC SOPN INSULIN GLARGINE Inac tive SUCRALFATE 1 GM TABS 1 four times a day to coat the stomach 2015 SUCRALFATE 1 GM TABS 205297 SUCRALFATE Inactive ZITHROMAX Z-ISAIAS 250 MG TABS Take two tablets today and then 1 tablet daily for 4 days ZITHROMAX Z-ISAIAS 250 MG TABS 328831 AZITHROM YCIN Inactive Immunizations Vaccine Administration Date Value Standard Floyd cription pneumococcal immunization administered Pneumovax 23 [CVX33] pneumococcal polysaccharide vaccine, 23 valent Seasonal influenza vaccine, injectable, containing preservative, for > 3 years old (Afluria, FluLaval, Fluzone, Fluvirin, Fluarix, Agriflu(>= 18 yo)) Fluzone (>3 yrs.) [[id number]] Influenza, seasonal, inject able Seasonal influenza vaccine, injectable, containing preservative, for > 3 years old (Afluria, FluLaval, Fluzone, Fluvirin, Fluarix, Agriflu(>= 18 yo)) Fluzone (>3 yrs.) [TWZ279] Influenza, seasonal, inject able Vital Signs Date [...] - Chem istry sodium, serum 139 mmol/L 533-384 3027/10/03 potassium, serum 4.7 mmol/L 3.5-5.2 chloride, serum 98 mmol/L 98-107 carbon dioxide, venous blood 28.7 mmol/L 21.0-32 .0 blood glucose 218 mg/dL 65-110 calcium, serum 9.8 mg/dL 8.5-10.1 urea nitrogen, blood 19 mg/dL 7-18 creatinine, serum 1.68 mg/dL 0.60-1.30 Lab Report: Basic Metabolic Panel, HGBA1 C - Chemistry sodium, serum 143 mmol/L 585-350 4534/06/19 potassium, serum 5.9 mmol/L 3.5-5.2 chloride, serum 105 mmol/L 98-107 carbon dioxide, venous blood 30.2 mmol/L 21.0-32 .0 blood glucose 189 mg/dL 65-110 calcium, serum 9.7 mg/dL 8.5-10.1 urea nitrogen, blood 37 mg/dL 7-18 creatinine, serum 2.11 mg/dL 0.55-1.30 hemoglobin A1C, blood, as % of total hemoglobin 8.2 % 4.3-6.0 Lab Report: CBC, Renal Panel - Chemistry sodium, serum 142 mmol/L 809-096 8273/08/11 potassium, serum 4.8 mmol/L 3.5-5.2 chloride, serum [...] Panel - Chemistry sodium, serum 143 mmol/L 966-752 0831/12/19 carbon dioxide, venous blood 32.5 mmol/L 21.0-32 .0 potassium, serum 4.9 mmol/L 3.5-5.2 chloride, serum 101 mmol/L 98-107 blood glucose 129 mg/dL 65-110 urea nitrogen, blood 18 mg/dL 7-18 creatinine, serum 1.79 mg/dL 0.55-1.30 alanine aminotransferase (SGPT), serum 34 U/L 12-78 aspartate aminotransferase (SGOT), serum 26 U/L 15-37 calcium, serum 8.9 mg/dL 8.5-10.1 bilirubin, serum, total 0.30 mg/dL 0.00-1.00 cholesterol, serum 214 mg/dL 466-770 1534/12/19 triglyceride, serum, fasting 351 mg/dL 30-200 HDL [...] 4.3-6.0 Encounters Code Encounter Date Provider Facility CPT-72021 Level 4 Est. Patient 12:25:11 CDT Baltazar Childers MD [facility] CPT-95674 Level 4 Est. Patient 14:22:31 CDT Baltazar Childers MD [facility]-08945 Level 4 Est. Patient 15:44:38 CDT Shonna Parker APRN [facility]-94111 Level 4 Est. Patient 11:34:17 CDT Baltazar Childers MD [facility]-56949 Level 3 Est. Patient 16:40:40 CDT Baltazar Childers MD [facility]-58751 Level 4 Est. Patient 10:41:24 CDT Baltazar Childers MD [facility]-77730 Level 4 Est. Patient 16:01:48 CDT Baltazar Childers MD [facility]-25495 Level 4 Est. Patient 16:54:07 DEVELOPING MACHINE OPERATOR Baltazar Childers MD [facility]-51452 Level 4 Est. Patient 15:42:12 CDT Baltazar Childers MD [facility] CPT-67598 Level 4 Est. Patient 11:29:55 CDT Baltazar Childers MD [facility] CPT-18669 Level 4 Est. Patient 14:15:19 CDT Baltazar Childers MD [facility]-73137 Level 4 Est. Patient 12:20:13 CDT Baltazar Childers MD [facility]-67778 Level 4 Est. Patient 14:52:45 DEVELOPING MACHINE OPERATOR Baltazar Childers MD [facility] CPT-36044 Level 4 Est. Patient 14:18:34 DEVELOPING MACHINE OPERATOR Baltazar Childers MD [facility] CPT-96243 Level 4 Est. Patient 15:18:29 CDT Baltazar Childers MD [facility]-60520 Level 3 Est. Patient 12:45:34 CDT Baltazar Childers MD [facility]-73974 Level 3 Est. Patient 10:10:11 CDT Baltazar Childers MD [facility] CPT-32430 Level 3 Est. Patient 14:07:50 CDT Baltazar Childers MD [facility] CPT-51447 Level 4 Est. Patient 12:26:10 DEVELOPING MACHINE OPERATOR Baltazar Childers MD [facility] CPT-11988 Level 4 Est. Patient 14:45:38 CDT Baltazar Childers MD [facility] CPT-24498 Level 4 New Patient 12:30:48 CDT Baltazar hinton MD [facility] Procedures Code Procedure Name Date Entry Date Standard Desc ription CPT-12663 First Vx - Ix admin via ID I M or jet injects without counseling by physician 13:08:59 CDT CPT-11809 Fluzone Quadrivalent Intramuscular Suspe nsion 0.5 ML 13:08:59 CDT CPT-08785 Venipuncture Draw Fee 12:04:12 CDT CPT-34037 Lipid - LAB USE ONLY 17:39:15 DEVELOPING MACHINE OPERATOR 9 CPT-81596 HGBA1C - LAB USE ONLY 17:39:15 DEVELOPING MACHINE OPERATOR CPT-68281 CMP - LAB USE ONLY 17:39:14 DEVELOPING MACHINE OPERATOR CPT-60322 Venipuncture Draw Fee 17:39:14 DEVELOPING MACHINE OPERATOR CPT-46635 First Vx - Ix admin via ID I M or jet injects without counseling by physician 16:55:17 DEVELOPING MACHINE OPERATOR CPT-06565 Fluzone Quadrivalent Intramuscular Suspe nsion 0.5 ML 16:55:17 DEVELOPING MACHINE OPERATOR CPT-67812 Renal Panel - LAB USE ONLY 17:39:20 CDT 201 10/31/07 CPT-72834 CBC - LAB USE ONLY 17:39:20 CDT CPT-37398 Venipuncture Draw Fee 17:39:20 CDT CPT-74533 Venipuncture Draw Fee 14:33:30 CDT CPT-70219 Renal Panel - LAB USE ONLY 14:33:30 CDT 201 10/31/07 CPT-35651 CBC - LAB USE ONLY 14:33:29 CDT CPT-50604 Venipuncture Draw Fee 14:50:21 DEVELOPING MACHINE OPERATOR CPT-36512 Immunization Single Admin 17:35:35 CDT 2014 CPT-87125 Fluzone Quadrivalent preservative free ( >=3yrs.) 17:35:35 CDT CPT-01181 Venipuncture Draw Fee 12:10:27 DEVELOPING MACHINE OPERATOR CPT-35408 Fluzone Quadrivalent Intramuscular Suspe nsion 0.5 ML 10:49:13 CDT CPT-95992 First Vx Component - Ix admi n via ID IM or jet inj without physician counseling 15:17:19 DEVELOPING MACHINE OPERATOR CPT-10405 Pneumovax 23 15:17:19 DEVELOPING MACHINE OPERATOR CPT-98757 Pneumovax 14:52:45 DEVELOPING MACHINE OPERATOR CPT-22047 Venipuncture Draw Fee 14:06:30 DEVELOPING MACHINE OPERATOR CPT-000 Give Appropriate Flu Vaccine 14:18:34 DEVELOPING MACHINE OPERATOR 2 CPT-53746 Administration single or combination vac cine inc oral 14:46:00 DEVELOPING MACHINE OPERATOR CPT-84684 Influenza split virus > age 3 14:46:00 DEVELOPING MACHINE OPERATOR CPT-OV Office Visit 19:13:16 CDT CPT-21291 Zostavax 18:41:56 CDT CPT-81689 Administration single or combination vac cine inc oral 12:56:39 CDT CPT-88737 Zoster Vaccine (Zostavax) 12:56:39 CDT 2012 CPT-55894 Venipuncture Draw Fee 10:58:57 CDT CPT-23558 Sono pelvis non OB uterus ovaries cervix 17:45:04 CDT CPT-25471 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
--- OUTSIDE RECORDS SUMMARY | 2019-10-27 12:24 | XMS REPORT | Clinical Summary ---
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 Benign neoplasm of colon PERIPHERAL NEUROPATHY [...] ronary atherosclerosis of unspecified type of vessel, [place] or graft OTH NONSPC ABN FINDNG RAD&OTH [...] a day as needed 2 NAPROXEN SODIUM 25970536194 No Longer Active Baltazar Childers MD Active ATORVASTATIN CALCIUM 20 MG ORAL TABS Take 1 tab daily ATORVASTATIN CALCIUM 35035409476 Active KENDALL Juarez Active FUROSEMIDE 40 MG TABS Take one by mouth daily FUROSEMIDE 28499151834 Active Baltazar Childers MD Active LISINOPRIL 20 MG TABS Take one by mouth daily at bedtime LISINOPRIL 82441910578 Active KENDALL Juarez Active ONETOUCH ULTRA BLUE STRP Test twice a day GLUCO SE BLOOD 70752155614 No Longer Active Baltazar Childers MD Active TRUEPLUS LANCETS 33G MISC Test twice a day LANCET S 37626375578 Active KENDALL Juarez Active TRUEDRAW LANCING DEVICE MISC Test twice a day L ANCET DEVICES 44373378846 Active Baltazar Childers MD Active TRUETRACK TEST STRP Test twice a day GLUCOSE BLOO D 93652932588 Active Baltazar Childers MD Active TRUETRACK BLOOD GLUCOSE W/DEVICE KIT Test twice a day BLOOD GLUCOSE MONITORING SUPPL 96711676738 Active Baltazar Childers MD Activ e HYDROCODONE-ACETAMINOPHEN 7.5-325 MG TABS Take 1 tab every 6-8 hour s PRN HYDROCODONE-ACETAMINOPHEN 72503911683 Active Baltazar Childers MD Active NORTRIPTYLINE HCL 50 MG CAPS 1 every night for neuropathy 4 NORTRIPTYLINE HCL 99101272235 Active Baltazar Childers MD Acti ve GABAPENTIN 300 MG CAPS 1 three times a day GABAPE NTIN 91975340365 Active KENDALL Juarez Active GABAPENTIN 300 MG CAPS 1 po qd x 2 days, then 1 po BID x 2 d ays, then 1 po TID GABAPENTIN 00651474908 No Longer Active Baltazar silverman MD Active TRAMADOL HCL 50 MG TABS 1 twice a day as needed for pain TRAMADOL HCL 93952223986 Active Baltazar Childers MD Active NAPROXEN 500 MG TABS 1 tablet by mouth twice daily NAPROXEN 42671595638 No Longer Active Baltazar Childers MD Active PROAIR HFA 108 (90 BASE) MCG/ACT AERS 2 puffs four times a d ay as needed ALBUTEROL SULFATE 72281912866 Active KENDALL Juarez Active DEPO-TESTOSTERONE 200 MG/ML OIL as directed RUFINO TOSTERONE CYPIONATE 67155231315 No Longer Active Baltazar Childers MD Active LIPITOR 20 MG TABS Take one by mouth daily in evening ATORVASTATIN CALCIUM 48904020856 No Longer Active Baltazar Childers MD Activ e CRESTOR 10 MG TABS 1 by mouth every day R OSUVASTATIN CALCIUM 34831090021 No Longer Active Baltazar Childers MD Activ e PHENTERMINE HCL 37.5 MG TABS Take one by mouth daily 2 PHENTERMINE HCL 08168058149 No Longer Active Baltazar Childers MD Activ e ROBAXIN-750 750 MG TABS Take one by mouth daily ME THOCARBAMOL 57021353415 Active Baltazar Childers MD Active TIZANIDINE HCL 4 MG TABS 1 daily as needed for muscle spasm 2011 TIZANIDINE HCL 02467921632 No Longer Active Dawna Salazar RN Active [id number] 50-325-40 MG TABS 1 four time s a day as needed for heacache [id number] 96191963068 Active KENDALL Juarez Active SUMATRIPTAN SUCCINATE 100 MG TABS 1 tablet by mouth at onset of migraine as needed SUMATRIPTAN SUCCINATE 68033194871 Active KENDALL Juarez Active LORATADINE 10 MG TABS Take one by mouth daily LORATADINE 31769954547 Active Baltazar Childers MD Active OMEPRAZOLE 20 MG CPDR Take one by mouth daily OMEPRAZOLE 80418954128 Active Baltazar Childers MD Active HYDROXYZINE HCL 25 MG TABS Take one by mouth daily HYDROXYZINE HCL 70990049318 Active Baltazar Childers MD Active GLIPIZIDE 10 MG TABS 1 tablet by mouth twice daily GLIPIZIDE 21890721899 Active KENDALL Juarez Active ALPRAZOLAM 1 MG TABS 1 tablet by mouth daily at bedtime for restles s leg ALPRAZOLAM 24419551218 Active Baltazar Childers MD Active METFORMIN HCL 1000 MG TABS Take one by mouth twice daily METFORMIN HCL 66425131032 Active Baltazar Childers MD Active TIZANIDINE HCL 4 MG TABS 1 daily as needed for muscle spasm 2011 TIZANIDINE HCL 4 MG TABS 333779 TIZANIDINE HCL Inactiv e PHENTERMINE HCL 37.5 MG TABS Take one by mouth daily 2 PHENTERMINE HCL 37.5 MG TABS 803948 PHENTERMINE HCL Inactive CRESTOR 10 MG TABS 1 by mouth every day C RESTOR 10 MG TABS ROSUVASTATIN CALCIUM Inactive LIPITOR 20 MG TABS Take one by mouth daily in evening LIPITOR 20 MG TABS 153594 ATORVASTATIN CALCIUM Inactive DEPO-TESTOSTERONE 200 MG/ML OIL as directed 8 DEPO-TESTOSTERONE 200 MG/ML OIL 346622 TESTOSTERONE CYPIONATE Inactive NAPROXEN 500 MG TABS 1 tablet by mouth twice daily 201 07/27/22 NAPROXEN 500 MG TABS 314874 NAPROXEN Inactive GABAPENTIN 300 MG CAPS 1 po qd x 2 days, then 1 po BID x 2 d ays, then 1 po TID GABAPENTIN 300 MG CAPS 519182 GABAPENTIN Inact amie ONETOUCH ULTRA BLUE STRP Test twice a day ONETOUCH ULTRA BLUE STRP GLUCOSE BLOOD Inactive NAPROXEN SODIUM 220 MG ORAL TABS 1 three times a day as needed 2 NAPROXEN SODIUM 220 MG ORAL TABS 351472 NAPROXEN SODIUM Inactive Immunizations Vaccine Administration Date Value Standard Floyd cription pneumococcal immunization administered Pneumovax 23 [CVX33] pneumococcal polysaccharide vaccine, 23 valent Seasonal influenza vaccine, injectable, containing preservative, for > 3 years old (Afluria, FluLaval, Fluzone, Fluvirin, Fluarix, Agriflu(>= 18 yo)) Fluzone (>3 yrs.) [[id number]] Influenza, seasonal, inject able Seasonal influenza vaccine, injectable, containing preservative, for > 3 years old (Afluria, FluLaval, Fluzone, Fluvirin, Fluarix, Agriflu(>= 18 yo)) Fluzone (>3 yrs.) [[id number]] Influenza, seasonal, inject able Vital Signs Date [...] 7.9 % 4.3-6.0 sodium, serum 139 mmol/L 623-230 8516/02/04 potassium, serum 5.4 mmol/L 3.5-5.2 chloride, serum [...] Panel - Chemistry sodium, serum 138 mmol/L 929-468 7097/11/23 carbon dioxide, venous blood 32.4 mmol/L 21.0-32 .0 potassium, serum 5.7 mmol/L 3.5-5.2 chloride, serum 98 mmol/L 98-107 blood glucose 136 mg/dL 65-110 urea nitrogen, blood 18 mg/dL 7-18 creatinine, serum 1.71 mg/dL 0.55-1.30 alanine aminotransferase (SGPT), serum 71 U/L 12-78 aspartate aminotransferase (SGOT), serum 34 U/L 15-37 calcium, serum 9.4 mg/dL 8.5-10.1 bilirubin, serum, total 0.40 mg/dL 0.00-1.00 cholesterol, serum 405 mg/dL 627-822 3497/11/23 triglyceride, serum, fasting 709 mg/dL 30-200 HDL [...] mg/dL Encounters Code Encounter Date Provider Facility CPT-73950 Level 4 Est. Patient 16:01:48 CDT Baltazar Childers MD [facility] CPT-99551 Level 4 Est. Patient 16:54:07 INTEGRATION MANAGER Baltazar Childers MD [facility] CPT-89988 Level 4 Est. Patient 15:42:12 CDT Baltazar Childers MD [facility] CPT-91111 Level 4 Est. Patient 11:29:55 CDT Baltazar Childers MD [facility] CPT-77976 Level 4 Est. Patient 14:15:19 CDT Baltazar Childers MD [facility] CPT-54531 Level 4 Est. Patient 12:20:13 CDT Baltazar Childers MD [facility] CPT-86533 Level 4 Est. Patient 14:52:45 INTEGRATION MANAGER Baltazar Childers MD [facility] CPT-04615 Level 4 Est. Patient 14:18:34 INTEGRATION MANAGER Baltazar Childers MD [facility] CPT-84184 Level 4 Est. Patient 15:18:29 CDT Baltazar Childers MD [facility] CPT-83196 Level 3 Est. Patient 12:45:34 CDT Baltazar Childers MD [facility] CPT-88801 Level 3 Est. Patient 10:10:11 CDT Baltazar Childers MD [facility] CPT-87446 Level 3 Est. Patient 14:07:50 CDT Baltazar Childers MD [facility] CPT-55521 Level 4 Est. Patient 12:26:10 INTEGRATION MANAGER Baltazar Childers MD [facility] CPT-61397 Level 4 Est. Patient 14:45:38 CDT Baltazar Childers MD [facility] CPT-22673 Level 4 New Patient 12:30:48 CDT Baltazar hinton MD [facility] Procedures Code Procedure Name Date Entry Date Standard Desc ription CPT-95779 Venipuncture Draw Fee 14:50:21 INTEGRATION MANAGER CPT-98922 Immunization Single Admin 17:35:35 CDT 2014 CPT-61943 Fluzone Quadrivalent preservative free ( >=3yrs.) 17:35:35 CDT CPT-44540 Venipuncture Draw Fee 12:10:27 INTEGRATION MANAGER CPT-20855 Fluzone Quadrivalent Intramuscular Suspe nsion 0.5 ML 10:49:13 CDT CPT-41950 First Vx Component - Ix admi n via ID IM or jet inj without physician counseling 15:17:19 INTEGRATION MANAGER CPT-08618 Pneumovax 15:17:19 INTEGRATION MANAGER CPT-31103 Pneumovax 14:52:45 INTEGRATION MANAGER CPT-68090 Venipuncture Draw Fee 14:06:30 INTEGRATION MANAGER CPT-000 Give Appropriate Flu Vaccine 14:18:34 INTEGRATION MANAGER 2 CPT-21037 Administration single or combination vac cine inc oral 14:46:00 INTEGRATION MANAGER CPT-40232 Influenza split virus > age 3 14:46:00 INTEGRATION MANAGER CPT-OV Office Visit 19:13:16 CDT CPT-42135 Zostavax 18:41:56 CDT CPT-89058 Administration single or combination vac cine inc oral 12:56:39 CDT CPT-43673 Zoster Vaccine (Zostavax) 12:56:39 CDT 2012 CPT-75304 Venipuncture Draw Fee 10:58:57 CDT CPT-55583 Sono pelvis non OB uterus ovaries cervix 17:45:04 CDT CPT-15204 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
--- OUTSIDE RECORDS SUMMARY | 2019-10-27 12:25 | XMS REPORT | Clinical Summary ---
Author Author Admin, Elba Lance [facility] Address Unknown Phone Unavailable Allergies, Adverse 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 [employer]AR[employer] HAND Benign neoplasm of colon PERIPHERAL NEUROPATHY 356.9 [...] ronary atherosclerosis of unspecified type of vessel, [place] or graft OTH NONSPC ABN FINDNG [...] 1 tablet daily for 4 days AZITHROMYCIN 37837993141 No Longer Active Yousif Childers MD Active LANTUS SOLOSTAR 100 UNIT/ML SC SOPN 30 units SC daily INSULIN GLARGINE 96665406359 Active Baltazar Childers MD Active AMLODIPINE BESYLATE 5 MG ORAL TABS 1 tab daily for HTN AMLODIPINE BESYLATE 96680711589 Active Baltazar Childers MD Active SYNTHROID 0.1 MG TAB 1 tablet by mouth daily LE VOTHYROXINE SODIUM 28386523315 Active Baltazar Childers MD Active GLIPIZIDE 10 MG TAB take 2 tablets twice daily GLIPIZIDE 70054694325 Active Baltazar Childers MD Active SUCRALFATE 1 GM TABS 1 four times a day to coat the stomach 2015 SUCRALFATE 82788496594 No Longer Active Baltazar Childers MD Active PEN NEEDLES 31G X 6 MM MISC use 1 daily INSULIN PEN NEEDLE 36868986497 Active KENDALL Juarez Active TOUJEO SOLOSTAR 300 UNIT/ML SC SOPN 10 units SC daily INSULIN GLARGINE 52113926968 No Longer Active Martita ARGUETA Active NAPROXEN SODIUM 220 MG ORAL TABS 1 three times a day as needed 2 NAPROXEN SODIUM 24292928099 No Longer Active Baltazar Childers MD Active ATORVASTATIN CALCIUM 20 MG ORAL TABS Take 1 tab daily ATORVASTATIN CALCIUM 68980545072 Active Baltazar Childers MD Active FUROSEMIDE 40 MG TABS Take one by mouth daily FUROSEMIDE 57497413984 Active Baltazar Childers MD Active LISINOPRIL 20 MG TABS Take one by mouth daily at bedtime LISINOPRIL 19259441607 No Longer Active Baltazar Childers MD Active ONETOUCH ULTRA BLUE STRP Test twice a day GLUCO SE BLOOD 89638258238 No Longer Active Baltazar Childers MD Active TRUEPLUS LANCETS 33G MISC Test twice a day LANCET S 33895384297 Active KENDALL Juarez Active TRUEDRAW LANCING DEVICE MISC Test twice a day L ANCET DEVICES 38276923605 Active Baltazar Childers MD Active TRUETRACK TEST STRP Test twice a day GLUCOSE BLOO D 22107861778 Active KENDALL Juarez Active TRUETRACK BLOOD GLUCOSE W/DEVICE KIT Test twice a day BLOOD GLUCOSE MONITORING SUPPL 07713275401 Active Baltazar Childers MD Activ e HYDROCODONE-ACETAMINOPHEN 7.5-325 MG TABS Take 1 tab every 6-8 hour s PRN HYDROCODONE-ACETAMINOPHEN 83370106434 Active Baltazar Childers MD Active NORTRIPTYLINE HCL 50 MG CAPS 1 every night for neuropathy 4 NORTRIPTYLINE HCL 17233219008 Active Baltazar Childers MD Acti ve GABAPENTIN 300 MG CAPS 1 three times a day GABAPE NTIN 87655378648 Active Baltazar Childers MD Active GABAPENTIN 300 MG CAPS 1 po qd x 2 days, then 1 po BID x 2 d ays, then 1 po TID GABAPENTIN 95773871822 No Longer Active Baltazar silverman MD Active TRAMADOL HCL 50 MG TABS 1 twice a day as needed for pain TRAMADOL HCL 08590776215 Active Baltazar Childers MD Active NAPROXEN 500 MG TABS 1 tablet by mouth twice daily NAPROXEN 08675751613 No Longer Active Baltazar Childers MD Active PROAIR HFA 108 (90 BASE) MCG/ACT AERS 2 puffs four times a d ay as needed ALBUTEROL SULFATE 93131209408 Active Baltazar Childers MD Active DEPO-TESTOSTERONE 200 MG/ML OIL as directed RUFINO TOSTERONE CYPIONATE 84102609331 No Longer Active Baltazar Childers MD Active LIPITOR 20 MG TABS Take one by mouth daily in evening ATORVASTATIN CALCIUM 83530281482 No Longer Active Baltazar Childers MD Activ e CRESTOR 10 MG TABS 1 by mouth every day R OSUVASTATIN CALCIUM 02955103424 No Longer Active Baltazar Childers MD Activ e PHENTERMINE HCL 37.5 MG TABS Take one by mouth daily 2 PHENTERMINE HCL 82498235114 No Longer Active Baltazar Childers MD Activ e ROBAXIN-750 750 MG TABS Take one by mouth daily ME THOCARBAMOL 89274424243 Active Baltazar Childers MD Active TIZANIDINE HCL 4 MG TABS 1 daily as needed for muscle spasm 2011 TIZANIDINE HCL 57309401055 No Longer Active Dawna Salazar RN Active [id number] 50-325-40 MG TABS 1 four time s a day as needed for heacache [id number] 22434041522 Active KENDALL Juarez Active SUMATRIPTAN SUCCINATE 100 MG TABS 1 tablet by mouth at onset of migraine as needed SUMATRIPTAN SUCCINATE 56467334724 Active Baltazar bynum MD Active LORATADINE 10 MG TABS Take one by mouth daily LORATADINE 87002126614 Active Baltazar Childers MD Active OMEPRAZOLE 20 MG CPDR Take one by mouth daily OMEPRAZOLE 59234296162 Active Baltazar Childers MD Active HYDROXYZINE HCL 25 MG TABS Take one by mouth daily HYDROXYZINE HCL 46394124544 Active Baltazar Childers MD Active ALPRAZOLAM 1 MG TABS 1 tablet by mouth daily at bedtime for restles s leg ALPRAZOLAM 61166190542 Active Baltazar Childers MD Active METFORMIN HCL 1000 MG TABS Take one by mouth twice daily METFORMIN HCL 56753878004 Active Baltazar Childers MD Active TIZANIDINE HCL 4 MG TABS 1 daily as needed for muscle spasm 2011 TIZANIDINE HCL 4 MG TABS 737173 TIZANIDINE HCL Inactiv e PHENTERMINE HCL 37.5 MG TABS Take one by mouth daily 2 PHENTERMINE HCL 37.5 MG TABS 958827 PHENTERMINE HCL Inactive CRESTOR 10 MG TABS 1 by mouth every day C RESTOR 10 MG TABS 498157 ROSUVASTATIN CALCIUM Inactive LIPITOR 20 MG TABS Take one by mouth daily in evening LIPITOR 20 MG TABS 928348 ATORVASTATIN CALCIUM Inactive DEPO-TESTOSTERONE 200 MG/ML OIL as directed 8 DEPO-TESTOSTERONE 200 MG/ML OIL 446114 TESTOSTERONE CYPIONATE Inactive NAPROXEN 500 MG TABS 1 tablet by mouth twice daily 201 07/27/22 NAPROXEN 500 MG TABS 469095 NAPROXEN Inactive GABAPENTIN 300 MG CAPS 1 po qd x 2 days, then 1 po BID x 2 d ays, then 1 po TID GABAPENTIN 300 MG CAPS 821359 GABAPENTIN Inact amie ONETOUCH ULTRA BLUE STRP Test twice a day ONETOUCH ULTRA BLUE STRP GLUCOSE BLOOD Inactive NAPROXEN SODIUM 220 MG ORAL TABS 1 three times a day as needed 2 NAPROXEN SODIUM 220 MG ORAL TABS 172390 NAPROXEN SODIUM Inactive TOUJEO SOLOSTAR 300 UNIT/ML SC SOPN 10 units SC daily TOUJEO SOLOSTAR 300 UNIT/ML SC SOPN INSULIN GLARGINE Inac tive SUCRALFATE 1 GM TABS 1 four times a day to coat the stomach 2015 SUCRALFATE 1 GM TABS 294623 SUCRALFATE Inactive ZITHROMAX Z-ISAIAS 250 MG TABS Take two tablets today and then 1 tablet daily for 4 days ZITHROMAX Z-ISAIAS 250 MG TABS 861290 AZITHROM YCIN Inactive Immunizations Vaccine Administration Date Value Standard Floyd cription pneumococcal immunization administered Pneumovax 23 [CVX33] pneumococcal polysaccharide vaccine, 23 valent Seasonal influenza vaccine, injectable, containing preservative, for > 3 years old (Afluria, FluLaval, Fluzone, Fluvirin, Fluarix, Agriflu(>= 18 yo)) Fluzone (>3 yrs.) [NVH550] Influenza, seasonal, inject able Seasonal influenza vaccine, injectable, containing preservative, for > 3 years old (Afluria, FluLaval, Fluzone, Fluvirin, Fluarix, Agriflu(>= 18 yo)) Fluzone (>3 yrs.) [BJU323] Influenza, seasonal, inject able Vital Signs Date [...] - Chem istry sodium, serum 139 mmol/L 128-740 9964/10/03 potassium, serum 4.7 mmol/L 3.5-5.2 chloride, serum 98 mmol/L 98-107 carbon dioxide, venous blood 28.7 mmol/L 21.0-32 .0 blood glucose 218 mg/dL 65-110 calcium, serum 9.8 mg/dL 8.5-10.1 urea nitrogen, blood 19 mg/dL 7-18 creatinine, serum 1.68 mg/dL 0.60-1.30 Lab Report: Basic Metabolic Panel, HGBA1 C - Chemistry sodium, serum 143 mmol/L 891-505 1068/06/19 potassium, serum 5.9 mmol/L 3.5-5.2 chloride, serum 105 mmol/L 98-107 carbon dioxide, venous blood 30.2 mmol/L 21.0-32 .0 blood glucose 189 mg/dL 65-110 calcium, serum 9.7 mg/dL 8.5-10.1 urea nitrogen, blood 37 mg/dL 7-18 creatinine, serum 2.11 mg/dL 0.55-1.30 hemoglobin A1C, blood, as % of total hemoglobin 8.2 % 4.3-6.0 Lab Report: CBC, Renal Panel - Chemistry sodium, serum 142 mmol/L 294-360 7275/08/11 potassium, serum 4.8 mmol/L 3.5-5.2 chloride, serum [...] Panel - Chemistry sodium, serum 143 mmol/L 751-881 6381/12/19 carbon dioxide, venous blood 32.5 mmol/L 21.0-32 .0 potassium, serum 4.9 mmol/L 3.5-5.2 chloride, serum 101 mmol/L 98-107 blood glucose 129 mg/dL 65-110 urea nitrogen, blood 18 mg/dL 7-18 creatinine, serum 1.79 mg/dL 0.55-1.30 alanine aminotransferase (SGPT), serum 34 U/L 12-78 aspartate aminotransferase (SGOT), serum 26 U/L 15-37 calcium, serum 8.9 mg/dL 8.5-10.1 bilirubin, serum, total 0.30 mg/dL 0.00-1.00 cholesterol, serum 214 mg/dL 247-084 8625/12/19 triglyceride, serum, fasting 351 mg/dL 30-200 HDL [...] 4.3-6.0 Encounters Code Encounter Date Provider Facility CPT-49526 Level 4 Est. Patient 12:25:11 CDT Baltazar Childers MD [facility] CPT-29676 Level 4 Est. Patient 14:22:31 CDT Baltazar Childers MD [facility]-53120 Level 4 Est. Patient 15:44:38 CDT Shonna Parker APRN [facility]-15764 Level 4 Est. Patient 11:34:17 CDT Baltazar Childers MD [facility]-69489 Level 3 Est. Patient 16:40:40 CDT Baltazar Childers MD [facility]-74506 Level 4 Est. Patient 10:41:24 CDT Baltazar Childers MD [facility]-44589 Level 4 Est. Patient 16:01:48 CDT Baltazar Childers MD [facility]-87695 Level 4 Est. Patient 16:54:07 CASE SUPERVISOR Baltazar Childers MD [facility]-94815 Level 4 Est. Patient 15:42:12 CDT Baltazar Childers MD [facility] CPT-84506 Level 4 Est. Patient 11:29:55 CDT Baltazar Childers MD [facility] CPT-63964 Level 4 Est. Patient 14:15:19 CDT Baltazar Childers MD [facility]-86256 Level 4 Est. Patient 12:20:13 CDT Baltazar Childers MD [facility]-19608 Level 4 Est. Patient 14:52:45 CASE SUPERVISOR Baltazar Childers MD [facility] CPT-65402 Level 4 Est. Patient 14:18:34 CASE SUPERVISOR Baltazar Childers MD [facility] CPT-97911 Level 4 Est. Patient 15:18:29 CDT Baltazar Childers MD [facility]-31527 Level 3 Est. Patient 12:45:34 CDT Baltazar Childers MD [facility]-03279 Level 3 Est. Patient 10:10:11 CDT Baltazar Childers MD [facility] CPT-96632 Level 3 Est. Patient 14:07:50 CDT Baltazar Childers MD [facility] CPT-03110 Level 4 Est. Patient 12:26:10 CASE SUPERVISOR Baltazar Childers MD [facility] CPT-98200 Level 4 Est. Patient 14:45:38 CDT Baltazar Childers MD [facility] CPT-40399 Level 4 New Patient 12:30:48 CDT Baltazar hinton MD [facility] Procedures Code Procedure Name Date Entry Date Standard Desc ription CPT-07635 First Vx - Ix admin via ID I M or jet injects without counseling by physician 13:08:59 CDT CPT-41544 Fluzone Quadrivalent Intramuscular Suspe nsion 0.5 ML 13:08:59 CDT CPT-11315 Venipuncture Draw Fee 12:04:12 CDT CPT-51448 Lipid - LAB USE ONLY 17:39:15 CASE SUPERVISOR 9 CPT-33451 HGBA1C - LAB USE ONLY 17:39:15 CASE SUPERVISOR CPT-84308 CMP - LAB USE ONLY 17:39:14 CASE SUPERVISOR CPT-15825 Venipuncture Draw Fee 17:39:14 CASE SUPERVISOR CPT-80944 First Vx - Ix admin via ID I M or jet injects without counseling by physician 16:55:17 CASE SUPERVISOR CPT-65921 Fluzone Quadrivalent Intramuscular Suspe nsion 0.5 ML 16:55:17 CASE SUPERVISOR CPT-51943 Renal Panel - LAB USE ONLY 17:39:20 CDT 201 10/31/07 CPT-11251 CBC - LAB USE ONLY 17:39:20 CDT CPT-99985 Venipuncture Draw Fee 17:39:20 CDT CPT-52570 Venipuncture Draw Fee 14:33:30 CDT CPT-30005 Renal Panel - LAB USE ONLY 14:33:30 CDT 201 10/31/07 CPT-48297 CBC - LAB USE ONLY 14:33:29 CDT CPT-96211 Venipuncture Draw Fee 14:50:21 CASE SUPERVISOR CPT-40379 Immunization Single Admin 17:35:35 CDT 2014 CPT-80681 Fluzone Quadrivalent preservative free ( >=3yrs.) 17:35:35 CDT CPT-10312 Venipuncture Draw Fee 12:10:27 CASE SUPERVISOR CPT-49968 Fluzone Quadrivalent Intramuscular Suspe nsion 0.5 ML 10:49:13 CDT CPT-97055 First Vx Component - Ix admi n via ID IM or jet inj without physician counseling 15:17:19 CASE SUPERVISOR CPT-20480 Pneumovax 23 15:17:19 CASE SUPERVISOR CPT-43364 Pneumovax 14:52:45 CASE SUPERVISOR CPT-05920 Venipuncture Draw Fee 14:06:30 CASE SUPERVISOR CPT-000 Give Appropriate Flu Vaccine 14:18:34 CASE SUPERVISOR 2 CPT-77775 Administration single or combination vac cine inc oral 14:46:00 CASE SUPERVISOR CPT-23229 Influenza split virus > age 3 14:46:00 CASE SUPERVISOR CPT-OV Office Visit 19:13:16 CDT CPT-95023 Zostavax 18:41:56 CDT CPT-48733 Administration single or combination vac cine inc oral 12:56:39 CDT CPT-84335 Zoster Vaccine (Zostavax) 12:56:39 CDT 2012 CPT-68983 Venipuncture Draw Fee 10:58:57 CDT CPT-68859 Sono pelvis non OB uterus ovaries cervix 17:45:04 CDT CPT-19365 Sono retroperitoneal complete kidneys an d bladder 17:14:36 CDT CPT-OV Office Visit 14:59:38 CASE SUPERVISOR CPT-J1070 Depo Testosterone 100 mg 14:50:13 CDT 03/05 CPT-61617 Abx/Therapy Injection 14:50:13 CDT CPT-59983 Administration single or combination vac cine inc oral 14:34:43 CDT CPT-88626 Influenza split virus > age 3 14:34:43 CDT CPT-J1070 Depo Testosterone 100 mg 17:37:13 CDT 01/11 CPT-38867 Abx/Therapy Injection 17:37:13 CDT CPT-87663 Venipuncture Draw Fee 16:30:13 CDT CPT-07483 Venipuncture Draw Fee 16:29:43 CDT CPT-J1070 Depo Testosterone 100 mg 14:45:38 CDT 01/11
--- OUTSIDE RECORDS SUMMARY | 2019-10-27 12:25 | XMS REPORT | Clinical Summary ---
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 Benign neoplasm of colon PERIPHERAL NEUROPATHY 356.9 [...] ronary atherosclerosis of unspecified type of vessel, [place] or graft OTH NONSPC ABN FINDNG RAD&OTH [...] tablet by mouth daily LE VOTHYROXINE SODIUM 31701406071 Active Carina Tucker LPN Active GLIPIZIDE 10 MG TAB take 2 tablets twice daily GLIPIZIDE 62212323563 Active Baltazar Childers MD Active SUCRALFATE 1 GM TABS 1 four times a day to coat the stomach 2015 SUCRALFATE 45974302380 No Longer Active Baltazar Childers MD Active PEN NEEDLES 31G X 6 MM MISC use 1 daily INSULIN PEN NEEDLE 82292184794 Active Bella Suarez [employer]ING [employer]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 TOURINKUO SOLOSTAR 300 UNIT/ML SC SOPN 10 units SC daily INSULIN GLARGINE 73440368740 No Longer Active Martita Godinez RMBetsey Active LANT SOLOSTAR 100 UNIT/ML SC SOPN 10 units SC daily INSULIN GLARGINE 60113868855 Active Baltazar Childers MD Active NAPROXEN SODIUM 220 MG ORAL TABS 1 three times a day as needed 2 NAPROXEN SODIUM 88356659015 No Longer Active Baltazar Childers MD Active ATORVASTATIN CALCIUM 20 MG ORAL TABS Take 1 tab daily ATORVASTATIN CALCIUM 90470582913 Active Baltazar Childers MD Active FUROSEMIDE 40 MG TABS Take one by mouth daily FUROSEMIDE 23612291446 Active Baltazar Childers MD Active LISINOPRIL 20 MG TABS Take one by mouth daily at bedtime LISINOPRIL 38298004077 Active Baltazar Childers MD Active ONETOUCH ULTRA BLUE STRP Test twice a day GLUCO SE BLOOD 86501307053 No Longer Active Baltazar Childers MD Active TRUEPLUS LANCETS 33G MISC Test twice a day LANCET S 44048844393 Active KENDALL Juarez Active TRUEDRAW LANCING DEVICE MISC Test twice a day L ANCET DEVICES 80349856699 Active Baltazar Childers MD Active TRUETRACK TEST STRP Test twice a day GLUCOSE BLOO D 85000584980 Active KENDALL Juarez Active TRUEJONI BLOOD GLUCOSE W/DEVICE KIT Test twice a day BLOOD GLUCOSE MONITORING SUPPL 07230615724 Active Baltazar Childers MD Activ e HYDROCODONE-ACETAMINOPHEN 7.5-325 MG TABS Take 1 tab every 6-8 hour s PRN HYDROCODONE-ACETAMINOPHEN 68146894226 Active Baltazar Childers MD Active NORTRIPTYLINE HCL 50 MG CAPS 1 every night for neuropathy 4 NORTRIPTYLINE HCL 43533174095 Active Baltazar Childers MD Acti ve GABAPENTIN 300 MG CAPS 1 three times a day GABAPE NTIN 35051634763 Active Baltazar Childers MD Active GABAPENTIN 300 MG CAPS 1 po qd x 2 days, then 1 po BID x 2 d ays, then 1 po TID GABAPENTIN 40829854594 No Longer Active Baltazar silverman MD Active TRAMADOL HCL 50 MG TABS 1 twice a day as needed for pain TRAMADOL HCL 54512933620 Active Baltazar Childers MD Active NAPROXEN 500 MG TABS 1 tablet by mouth twice daily NAPROXEN 28031783169 No Longer Active Baltazar Childers MD Active PROAIR HFA 108 (90 BASE) MCG/ACT AERS 2 puffs four times a d ay as needed ALBUTEROL SULFATE 47130882982 Active Baltazar Childers MD Active DEPO-TESTOSTERONE 200 MG/ML OIL as directed RUFINO TOSTERONE CYPIONATE 51056068675 No Longer Active Baltazar Childers MD Active LIPITOR 20 MG TABS Take one by mouth daily in evening ATORVASTATIN CALCIUM 31597077900 No Longer Active Baltazar Childers MD Activ e CRESTOR 10 MG TABS 1 by mouth every day R OSUVASTATIN CALCIUM 08104613558 No Longer Active Baltazar Childers MD Activ e PHENTERMINE HCL 37.5 MG TABS Take one by mouth daily 2 PHENTERMINE HCL 49825278293 No Longer Active Baltazar Childers MD Activ e ROBAXIN-750 750 MG TABS Take one by mouth daily ME THOCARBAMOL 65074036698 Active Baltazar Childers MD Active TIZANIDINE HCL 4 MG TABS 1 daily as needed for muscle spasm 2011 TIZANIDINE HCL 20986639118 No Longer Active Dawna Salazar RN Active [id number] 50-325-40 MG TABS 1 four time s a day as needed for heacache [id number] 01825611157 Active Baltazar Childers MD Active SUMATRIPTAN SUCCINATE 100 MG TABS 1 tablet by mouth at onset of migraine as needed SUMATRIPTAN SUCCINATE 23612110289 Active Shonna Cram er 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 LORATADINE 10 MG TABS Take one by mouth daily LORATADINE 72790695323 Active KENDALL Juarez Active OMEPRAZOLE 20 MG CPDR Take one by mouth daily OMEPRAZOLE 46670199198 Active Baltazar Childers MD Active HYDROXYZINE HCL 25 MG TABS Take one by mouth daily HYDROXYZINE HCL 72300638503 Active Baltazar Childers MD Active ALPRAZOLAM 1 MG TABS 1 tablet by mouth daily at bedtime for restles s leg ALPRAZOLAM 01214242640 Active Baltazar Childers MD Active METFORMIN HCL 1000 MG TABS Take one by mouth twice daily METFORMIN HCL 43230552922 Active Baltazar Childers MD Active TIZANIDINE HCL 4 MG TABS 1 daily as needed for muscle spasm 2011 TIZANIDINE HCL 4 MG TABS 875996 TIZANIDINE HCL Inactiv e PHENTERMINE HCL 37.5 MG TABS Take one by mouth daily 2 PHENTERMINE HCL 37.5 MG TABS 044713 PHENTERMINE HCL Inactive CRESTOR 10 MG TABS 1 by mouth every day C RESTOR 10 MG TABS 750120 ROSUVASTATIN CALCIUM Inactive LIPITOR 20 MG TABS Take one by mouth daily in evening LIPITOR 20 MG TABS 591706 ATORVASTATIN CALCIUM Inactive DEPO-TESTOSTERONE 200 MG/ML OIL as directed 8 DEPO-TESTOSTERONE 200 MG/ML OIL 098269 TESTOSTERONE CYPIONATE Inactive NAPROXEN 500 MG TABS 1 tablet by mouth twice daily 201 07/27/22 NAPROXEN 500 MG TABS 240001 NAPROXEN Inactive GABAPENTIN 300 MG CAPS 1 po qd x 2 days, then 1 po BID x 2 d ays, then 1 po TID GABAPENTIN 300 MG CAPS 664955 GABAPENTIN Inact amie ONETOUCH ULTRA BLUE STRP Test twice a day ONETOUCH ULTRA BLUE STRP GLUCOSE BLOOD Inactive NAPROXEN SODIUM 220 MG ORAL TABS 1 three times a day as needed 2 NAPROXEN SODIUM 220 MG ORAL TABS 416052 NAPROXEN SODIUM Inactive TOUJEO SOLOSTAR 300 UNIT/ML SC SOPN 10 units SC daily CELINA PARIKH 300 UNIT/ML SC SOPN INSULIN GLARGINE Inac tive SUCRALFATE 1 GM TABS 1 four times a day to coat the stomach 2015 SUCRALFATE 1 GM TABS 736895 SUCRALFATE Inactive Immunizations Vaccine Administration Date Value Standard Floyd cription pneumococcal immunization administered Pneumovax 23 [CVX33] pneumococcal polysaccharide vaccine, 23 valent Seasonal influenza vaccine, injectable, containing preservative, for > 3 years old (Afluria, FluLaval, Fluzone, Fluvirin, Fluarix, Agriflu(>= 18 yo)) Fluzone (>3 yrs.) [HRV353] Influenza, seasonal, inject able Seasonal influenza vaccine, injectable, containing preservative, for > 3 years old (Afluria, FluLaval, Fluzone, Fluvirin, Fluarix, Agriflu(>= 18 yo)) Fluzone (>3 yrs.) [PUE993] Influenza, seasonal, inject able Vital Signs Date [...] C - Chemistry sodium, serum 139 mmol/L 829-949 5441/07/07 potassium, serum 4.5 mmol/L 3.5-5.2 chloride, serum 99 mmol/L 98-107 carbon dioxide, venous blood 33.8 mmol/L 21.0-32 .0 blood glucose 209 mg/dL 65-110 calcium, serum 9.8 mg/dL 8.5-10.1 urea nitrogen, blood 14 mg/dL 7-18 creatinine, serum 1.89 mg/dL 0.55-1.30 hemoglobin A1C, blood, as % of total hemoglobin 8.3 % 4.3-6.0 sodium, serum 143 mmol/L 094-554 1555/06/19 potassium, serum 5.9 mmol/L 3.5-5.2 chloride, serum [...] Panel - Chemistry sodium, serum 143 mmol/L 300-353 7483/12/19 carbon dioxide, venous blood 32.5 mmol/L 21.0-32 .0 potassium, serum 4.9 mmol/L 3.5-5.2 chloride, serum 101 mmol/L 98-107 blood glucose 129 mg/dL 65-110 urea nitrogen, blood 18 mg/dL 7-18 creatinine, serum 1.79 mg/dL 0.55-1.30 alanine aminotransferase (SGPT), serum 34 U/L 12-78 aspartate aminotransferase (SGOT), serum 26 U/L 15-37 calcium, serum 8.9 mg/dL 8.5-10.1 bilirubin, serum, total 0.30 mg/dL 0.00-1.00 cholesterol, serum 214 mg/dL 557-818 2024/12/19 triglyceride, serum, fasting 351 mg/dL 30-200 HDL [...] Panel - Chemistry sodium, serum 141 mmol/L 733-708 5683/08/08 potassium, serum 4.9 mmol/L 3.5-5.2 chloride, serum 101 mmol/L 98-107 carbon dioxide, venous blood 34.1 mmol/L 21.0-32 .0 creatinine, serum 1.98 mg/dL 0.55-1.30 blood glucose 193 mg/dL 65-110 urea nitrogen, blood 30 mg/dL 7-18 calcium, serum 9.8 mg/dL 8.5-10.1 Encounters Code Encounter Date Provider Facility CPT-70604 Level 4 Est. Patient 14:22:31 CDT Baltazar Childers MD [facility]-79438 Level 4 Est. Patient 15:44:38 CDT Shonna Parker APRN [facility]-21203 Level 4 Est. Patient 11:34:17 CDT Baltazar Childers MD [facility] CPT-92666 Level 3 Est. Patient 16:40:40 CDT Baltazar Childers MD [facility]-59127 Level 4 Est. Patient 10:41:24 CDT Baltazar Childers MD [facility]-26180 Level 4 Est. Patient 16:01:48 CDT Baltazar Childers MD [facility]-25243 Level 4 Est. Patient 16:54:07 MACHINE SHOP INSPECTOR Baltazar Childers MD [facility]-24320 Level 4 Est. Patient 15:42:12 CDT Baltazar Childers MD [facility] CPT-99567 Level 4 Est. Patient 11:29:55 CDT Baltazar Childers MD [facility] CPT-45302 Level 4 Est. Patient 14:15:19 CDT Baltazar Childers MD [facility] CPT-17442 Level 4 Est. Patient 12:20:13 CDT Baltazar Childers MD [facility] CPT-76048 Level 4 Est. Patient 14:52:45 MACHINE SHOP INSPECTOR Baltazar Childers MD [facility] CPT-67401 Level 4 Est. Patient 14:18:34 MACHINE SHOP INSPECTOR Baltazar Childers MD [facility] CPT-88527 Level 4 Est. Patient 15:18:29 CDT Baltazar Childers MD [facility] CPT-56028 Level 3 Est. Patient 12:45:34 CDT Baltazar Childers MD [facility] CPT-83525 Level 3 Est. Patient 10:10:11 CDT Blatazar Childers MD [facility] CPT-92186 Level 3 Est. Patient 14:07:50 CDT Baltazar Childers MD [facility] CPT-64491 Level 4 Est. Patient 12:26:10 MACHINE SHOP INSPECTOR Baltazar Childers MD [facility] CPT-53693 Level 4 Est. Patient 14:45:38 CDT Baltazar Childers MD [facility] CPT-15365 Level 4 New Patient 12:30:48 CDT Baltazar hinton MD [facility] Procedures Code Procedure Name Date Entry Date Standard Desc ription CPT-52638 Lipid - LAB USE ONLY 17:39:15 MACHINE SHOP INSPECTOR 9 CPT-10075 HGBA1C - LAB USE ONLY 17:39:15 MACHINE SHOP INSPECTOR CPT-26447 CMP - LAB USE ONLY 17:39:14 MACHINE SHOP INSPECTOR CPT-51594 Venipuncture Draw Fee 17:39:14 MACHINE SHOP INSPECTOR CPT-65524 First Vx - Ix admin via ID I M or jet injects without counseling by physician 16:55:17 MACHINE SHOP INSPECTOR CPT-56849 Fluzone Quadrivalent Intramuscular Suspe nsion 0.5 ML 16:55:17 MACHINE SHOP INSPECTOR CPT-10249 Renal Panel - LAB USE ONLY 17:39:20 CDT 201 10/31/07 CPT-54762 CBC - LAB USE ONLY 17:39:20 CDT CPT-29081 Venipuncture Draw Fee 17:39:20 CDT CPT-68962 Venipuncture Draw Fee 14:33:30 CDT CPT-12856 Renal Panel - LAB USE ONLY 14:33:30 CDT 201 10/31/07 CPT-29292 CBC - LAB USE ONLY 14:33:29 CDT CPT-85967 Venipuncture Draw Fee 14:50:21 MACHINE SHOP INSPECTOR CPT-03682 Immunization Single Admin 17:35:35 CDT 2014 CPT-94785 Fluzone Quadrivalent preservative free ( >=3yrs.) 17:35:35 CDT CPT-13887 Venipuncture Draw Fee 12:10:27 MACHINE SHOP INSPECTOR CPT-61252 Fluzone Quadrivalent Intramuscular Suspe nsion 0.5 ML 10:49:13 CDT CPT-91082 First Vx Component - Ix admi n via ID IM or jet inj without physician counseling 15:17:19 MACHINE SHOP INSPECTOR CPT-96305 Pneumovax 23 15:17:19 MACHINE SHOP INSPECTOR CPT-27411 Pneumovax 14:52:45 MACHINE SHOP INSPECTOR CPT-90578 Venipuncture Draw Fee 14:06:30 MACHINE SHOP INSPECTOR CPT-000 Give Appropriate Flu Vaccine 14:18:34 MACHINE SHOP INSPECTOR 2 CPT-69841 Administration single or combination vac cine inc oral 14:46:00 MACHINE SHOP INSPECTOR CPT-94666 Influenza split virus > age 3 14:46:00 MACHINE SHOP INSPECTOR CPT-OV Office Visit 19:13:16 CDT CPT-63642 Zostavax 18:41:56 CDT CPT-81640 Administration single or combination vac cine inc oral 12:56:39 CDT CPT-00658 Zoster Vaccine (Zostavax) 12:56:39 CDT 2012 CPT-84807 Venipuncture Draw Fee 10:58:57 CDT CPT-80677 Sono pelvis non OB uterus ovaries cervix 17:45:04 CDT CPT-55061 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
--- OUTSIDE RECORDS SUMMARY | 2019-10-27 12:25 | XMS REPORT | Clinical Summary ---
Author Author Admin, Elba Lance MichelleLearndot [facility] Address Unknown Phone Unavailable Allergies, Adverse Reactions, 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 [employer]ER Benign neoplasm of colon PERIPHERAL NEUROPATHY 356.9 [...] ronary atherosclerosis of unspecified type of vessel, [place] or graft OTH NONSPC ABN FINDNG RAD&OTH [...] III 585.3 Active 201 10/25/03 Elba Faux A Chronic kidney disease, Stage III (moder [...] MD Heartburn COLON POLYPS ICD-211.3 Inactive Lolis Bynum Medication List Medication Instructions Start Date Stop Date Generic Name NDC Status Provider Patient Instruction SUCRALFATE 1 GM TABS 1 four times a day to coat the stomach 2015 SUCRALFATE [id number] No Longer Active Baltazar Childers MD Active PEN NEEDLES 31G X 6 MM MISC use 1 daily INSULIN PEN NEEDLE 03358607491 Active Bella Suarez 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 TOUJEO SOLOSTAR 300 UNIT/ML SC SOPN 10 units SC daily INSULIN GLARGINE 63568737200 No Longer Active Martita Godinez RMA Active LANTUS SOLOSTAR 100 UNIT/ML SC SOPN 10 units SC daily INSULIN GLARGINE 64386043467 Active Baltazar Childers MD Active NAPROXEN SODIUM 220 MG ORAL TABS 1 three times a day as needed 2 NAPROXEN SODIUM 71458998243 No Longer Active Baltazar Childers MD Active ATORVASTATIN CALCIUM 20 MG ORAL TABS Take 1 tab daily ATORVASTATIN CALCIUM 00555891479 Active Baltazar Childers MD Active FUROSEMIDE 40 MG TABS Take one by mouth daily FUROSEMIDE 45471434101 Active Baltazar Childers MD Active LISINOPRIL 20 MG TABS Take one by mouth daily at bedtime LISINOPRIL 94078679627 Active KENDALL Juarez Active ONETOUCH ULTRA BLUE STRP Test twice a day GLUCO SE BLOOD 74975758022 No Longer Active Baltazar Childers MD Active TRUEPLUS LANCETS 33G MISC Test twice a day LANCET S 88704598591 Active KENDALL Juarez Active TRUEDRAW LANCING DEVICE MISC Test twice a day L ANCET DEVICES 37557621404 Active Baltazar Childers MD Active TRUETRACK TEST STRP Test twice a day GLUCOSE BLOO D 87202111463 Active KENDALL Juarez Active TRUETRACK BLOOD GLUCOSE W/DEVICE KIT Test twice a day BLOOD GLUCOSE MONITORING SUPPL 08984354401 Active Baltazar Childers MD Activ e HYDROCODONE-ACETAMINOPHEN 7.5-325 MG TABS Take 1 tab every 6-8 hour s PRN HYDROCODONE-ACETAMINOPHEN 22315723264 Active Shonna Parker APRN Active NORTRIPTYLINE HCL 50 MG CAPS 1 every night for neuropathy 4 NORTRIPTYLINE HCL 86753573094 Active Baltazar Childers MD Acti ve GABAPENTIN 300 MG CAPS 1 three times a day GABAPE NTIN 19599180777 Active Baltazar Childers MD Active GABAPENTIN 300 MG CAPS 1 po qd x 2 days, then 1 po BID x 2 d ays, then 1 po TID GABAPENTIN 89194078872 No Longer Active Baltazar silverman MD Active TRAMADOL HCL 50 MG TABS 1 twice a day as needed for pain TRAMADOL HCL 79693948748 Active Shonna Parker APRN Active NAPROXEN 500 MG TABS 1 tablet by mouth twice daily NAPROXEN 59470213099 No Longer Active Baltazar Childers MD Active PROAIR HFA 108 (90 BASE) MCG/ACT AERS 2 puffs four times a d ay as needed ALBUTEROL SULFATE 81093133798 Active KENDALL Juarez Active DEPO-TESTOSTERONE 200 MG/ML OIL as directed RUFINO TOSTERONE CYPIONATE 70114001179 No Longer Active Baltazar Childers MD Active LIPITOR 20 MG TABS Take one by mouth daily in evening ATORVASTATIN CALCIUM 00772651459 No Longer Active Baltazar Childers MD Activ e CRESTOR 10 MG TABS 1 by mouth every day R OSUVASTATIN CALCIUM 84039522285 No Longer Active Baltazar Childers MD Activ e PHENTERMINE HCL 37.5 MG TABS Take one by mouth daily 2 PHENTERMINE HCL 43833581686 No Longer Active Baltazar Childers MD Activ e ROBAXIN-750 750 MG TABS Take one by mouth daily ME THOCARBAMOL 54553294055 Active Baltazar Childers MD Active TIZANIDINE HCL 4 MG TABS 1 daily as needed for muscle spasm 2011 TIZANIDINE HCL 19103508447 No Longer Active Dawna Salazar RN Active [id number] 50-325-40 MG TABS 1 four time s a day as needed for heacache [id number] 59730910998 Active Shonna Parker APRN Active SUMATRIPTAN SUCCINATE 100 MG TABS 1 tablet by mouth at onset of migraine as needed SUMATRIPTAN SUCCINATE 38702548067 Active Shonna richey APRN Active LORATADINE 10 MG TABS Take one by mouth daily LORATADINE 59884236113 Active Baltazar Childers MD Active OMEPRAZOLE 20 MG CPDR Take one by mouth daily OMEPRAZOLE 37184082421 Active KENDALL Juarez Active HYDROXYZINE HCL 25 MG TABS Take one by mouth daily HYDROXYZINE HCL 34740634136 Active Baltazar Childers MD Active GLIPIZIDE 10 MG TABS 1 tablet by mouth twice daily GLIPIZIDE 55034279516 Active Baltazar Childers MD Active ALPRAZOLAM 1 MG TABS 1 tablet by mouth daily at bedtime for restles s leg ALPRAZOLAM 37112534533 Active Baltazar Childers MD Active METFORMIN HCL 1000 MG TABS Take one by mouth twice daily METFORMIN HCL 43768932867 Active Baltazar Childers MD Active TIZANIDINE HCL 4 MG TABS 1 daily as needed for muscle spasm 2011 TIZANIDINE HCL 4 MG TABS 984376 TIZANIDINE HCL Inactiv e PHENTERMINE HCL 37.5 MG TABS Take one by mouth daily 2 PHENTERMINE HCL 37.5 MG TABS 465823 PHENTERMINE HCL Inactive CRESTOR 10 MG TABS 1 by mouth every day C RESTOR 10 MG TABS 250537 ROSUVASTATIN CALCIUM Inactive LIPITOR 20 MG TABS Take one by mouth daily in evening LIPITOR 20 MG TABS 172945 ATORVASTATIN CALCIUM Inactive DEPO-TESTOSTERONE 200 MG/ML OIL as directed 8 DEPO-TESTOSTERONE 200 MG/ML OIL 359059 TESTOSTERONE CYPIONATE Inactive NAPROXEN 500 MG TABS 1 tablet by mouth twice daily 201 07/27/22 NAPROXEN 500 MG TABS 404800 NAPROXEN Inactive GABAPENTIN 300 MG CAPS 1 po qd x 2 days, then 1 po BID x 2 d ays, then 1 po TID GABAPENTIN 300 MG CAPS 016933 GABAPENTIN Inact amie ONETOUCH ULTRA BLUE STRP Test twice a day ONETOUCH ULTRA BLUE STRP GLUCOSE BLOOD Inactive NAPROXEN SODIUM 220 MG ORAL TABS 1 three times a day as needed 2 NAPROXEN SODIUM 220 MG ORAL TABS 227178 NAPROXEN SODIUM Inactive TOUJEO SOLOSTAR 300 UNIT/ML SC SOPN 10 units SC daily TOUJEO SOLOSTAR 300 UNIT/ML SC SOPN INSULIN GLARGINE Inac tive SUCRALFATE 1 GM TABS 1 four times a day to coat the stomach 2015 SUCRALFATE 1 GM TABS 250334 SUCRALFATE Inactive Immunizations Vaccine Administration Date Value Standard Floyd cription pneumococcal immunization administered Pneumovax 23 [CVX33] pneumococcal polysaccharide vaccine, 23 valent Seasonal influenza vaccine, injectable, containing preservative, for > 3 years old (Afluria, FluLaval, Fluzone, Fluvirin, Fluarix, Agriflu(>= 18 yo)) Fluzone (>3 yrs.) [[id number]] Influenza, seasonal, inject able Seasonal influenza vaccine, injectable, containing preservative, for > 3 years old (Afluria, FluLaval, Fluzone, Fluvirin, Fluarix, Agriflu(>= 18 yo)) Fluzone (>3 yrs.) [[id number]] Influenza, seasonal, inject able Vital Signs Date [...] 11 .6-14.8 platelet count 345 10^3/MM^3 10*3/mm3 929-964 1611/08/08 erythrocyte (RBC) count 3.75 10^6/MM^3 10*6/mm3 4.04-5.4 [...] 0.30 mg/dL 0.00-1.00 cholesterol, serum 214 mg/dL 707-288 1003/12/19 triglyceride, serum, fasting 351 mg/dL 30-200 HDL cholesterol, serum 52 mg/dL 32-96 LDL cholesterol, serum 92 mg/dL 0-130 sodium, serum 143 mmol/L 988-217 6095/12/19 carbon dioxide, venous blood 32.5 mmol/L 21.0-32 .0 potassium, serum 4.9 mmol/L 3.5-5.2 chloride, serum 101 mmol/L 98-107 blood glucose 129 mg/dL 65-110 Lab Report: HGBA1C - Chemistry hemoglobin A1C, blood, as % of total hemoglobin 7.3 % 4.3-6.0 Lab Report: Renal Panel - Chemistry sodium, serum 141 mmol/L 601-617 1559/08/08 urea nitrogen, blood 30 mg/dL 7-18 calcium, serum 9.8 mg/dL 8.5-10.1 potassium, serum 4.9 mmol/L 3.5-5.2 chloride, serum 101 mmol/L 98-107 carbon dioxide, venous blood 34.1 mmol/L 21.0-32 .0 creatinine, serum 1.98 mg/dL 0.55-1.30 blood glucose 193 mg/dL 65-110 Encounters Code Encounter Date Provider Facility CPT-70476 Level 4 Est. Patient 15:44:38 CDT Shonna Parker APRN [facility] CPT-67011 Level 4 Est. Patient 11:34:17 CDT Baltazar Childers MD [facility] CPT-36963 Level 3 Est. Patient 16:40:40 CDT Baltazar Childers MD [facility] CPT-82217 Level 4 Est. Patient 10:41:24 CDT Baltazar Childers MD [facility] CPT-23935 Level 4 Est. Patient 16:01:48 CDT Baltazar Childers MD [facility] CPT-82324 Level 4 Est. Patient 16:54:07 STUD DRIVER Baltazar Childers MD [facility] CPT-33193 Level 4 Est. Patient 15:42:12 CDT Baltazar Childers MD [facility] CPT-11910 Level 4 Est. Patient 11:29:55 CDT Baltazar Childers MD [facility] CPT-81589 Level 4 Est. Patient 14:15:19 CDT Baltazar Childers MD [facility] CPT-58238 Level 4 Est. Patient 12:20:13 CDT Baltazar Childers MD [facility] CPT-65783 Level 4 Est. Patient 14:52:45 STUD DRIVER Baltazar Childers MD [facility] CPT-00717 Level 4 Est. Patient 14:18:34 STUD DRIVER Baltazar Childers MD [facility] CPT-10025 Level 4 Est. Patient 15:18:29 CDT Baltazar Childers MD [facility] CPT-21067 Level 3 Est. Patient 12:45:34 CDT Baltazar Childers MD [facility] CPT-11821 Level 3 Est. Patient 10:10:11 CDT Baltazar Childers MD [facility] CPT-25359 Level 3 Est. Patient 14:07:50 CDT Baltazar Childers MD [facility] CPT-21670 Level 4 Est. Patient 12:26:10 STUD DRIVER Baltazar Childers MD [facility] CPT-67668 Level 4 Est. Patient 14:45:38 CDT Baltazar Childers MD [facility] CPT-81450 Level 4 New Patient 12:30:48 CDT Baltazar hinton MD [facility] Procedures Code Procedure Name Date Entry Date Standard Desc ription CPT-13301 Lipid - LAB USE ONLY 17:39:15 STUD DRIVER 9 CPT-53590 HGBA1C - LAB USE ONLY 17:39:15 STUD DRIVER CPT-86797 CMP - LAB USE ONLY 17:39:14 STUD DRIVER CPT-18971 Venipuncture Draw Fee 17:39:14 STUD DRIVER CPT-73783 First Vx - Ix admin via ID I M or jet injects without counseling by physician 16:55:17 STUD DRIVER CPT-59970 Fluzone Quadrivalent Intramuscular Suspe nsion 0.5 ML 16:55:17 STUD DRIVER CPT-16221 Renal Panel - LAB USE ONLY 17:39:20 CDT 201 10/31/07 CPT-46607 CBC - LAB USE ONLY 17:39:20 CDT CPT-53475 Venipuncture Draw Fee 17:39:20 CDT CPT-07490 Venipuncture Draw Fee 14:33:30 CDT CPT-26226 Renal Panel - LAB USE ONLY 14:33:30 CDT 201 10/31/07 CPT-35765 CBC - LAB USE ONLY 14:33:29 CDT CPT-01265 Venipuncture Draw Fee 14:50:21 STUD DRIVER CPT-63355 Immunization Single Admin 17:35:35 CDT 2014 CPT-44151 Fluzone Quadrivalent preservative free ( >=3yrs.) 17:35:35 CDT CPT-84773 Venipuncture Draw Fee 12:10:27 STUD DRIVER CPT-54772 Fluzone Quadrivalent Intramuscular Suspe nsion 0.5 ML 10:49:13 CDT CPT-24733 First Vx Component - Ix admi n via ID IM or jet inj without physician counseling 15:17:19 STUD DRIVER CPT-13547 Pneumovax 23 15:17:19 STUD DRIVER CPT-83050 Pneumovax 14:52:45 STUD DRIVER CPT-72602 Venipuncture Draw Fee 14:06:30 STUD DRIVER CPT-000 Give Appropriate Flu Vaccine 14:18:34 STUD DRIVER 2 CPT-82507 Administration single or combination vac cine inc oral 14:46:00 STUD DRIVER CPT-64747 Influenza split virus > age 3 14:46:00 STUD DRIVER CPT-OV Office Visit 19:13:16 CDT CPT-66605 Zostavax 18:41:56 CDT CPT-35798 Administration single or combination vac cine inc oral 12:56:39 CDT CPT-71496 Zoster Vaccine (Zostavax) 12:56:39 CDT 2012 CPT-76029 Venipuncture Draw Fee 10:58:57 CDT CPT-45575 Sono pelvis non OB uterus ovaries cervix 17:45:04 CDT CPT-59762 Sono retroperitoneal complete kidneys an d bladder 17:14:36 CDT CPT-OV Office Visit 14:59:38 STUD DRIVER CPT-J1070 Depo Testosterone 100 mg 14:50:13 CDT 03/05 CPT-13613 Abx/Therapy Injection 14:50:13 CDT CPT-60175 Administration single or combination vac cine inc oral 14:34:43 CDT CPT-13575 Influenza split virus > age 3 14:34:43 CDT CPT-J1070 Depo Testosterone 100 mg 17:37:13 CDT 01/11 CPT-39331 Abx/Therapy Injection 17:37:13 CDT CPT-85320 Venipuncture Draw Fee 16:30:13 CDT CPT-42273 Venipuncture Draw Fee 16:29:43 CDT CPT-J1070 Depo Testosterone 100 mg 14:45:38 CDT 01/11
--- OUTSIDE RECORDS SUMMARY | 2019-10-27 12:26 | XMS REPORT | Clinical Summary ---
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 TOUJEO SOLOSTAR 300 UNIT/ML SC SOPN 10 units SC daily INSULIN GLARGINE 23068422218 No Longer Active Martita Godinez RMA Active LANTUS SOLOSTAR 100 UNIT/ML SC SOPN 10 units SC daily INSULIN GLARGINE 01133877407 Active Baltazar Childers MD Active NAPROXEN SODIUM 220 MG ORAL TABS 1 three times a day as needed 2 NAPROXEN SODIUM 61106752107 No Longer Active Baltazar Childers MD Active ATORVASTATIN CALCIUM 20 MG ORAL TABS Take 1 tab daily ATORVASTATIN CALCIUM 80440550215 Active Baltazar Childers MD Active FUROSEMIDE 40 MG TABS Take one by mouth daily FUROSEMIDE 85003902688 Active Baltazar Childers MD Active LISINOPRIL 20 MG TABS Take one by mouth daily at bedtime LISINOPRIL 18440033760 Active KENDALL Juarez Active ONETOUCH ULTRA BLUE STRP Test twice a day GLUCO SE BLOOD 93028075506 No Longer Active Baltazar Childers MD Active TRUEPLUS LANCETS 33G MISC Test twice a day LANCET S 76069032434 Active KENDALL Juarez Active TRUEDRAW LANCING DEVICE MISC Test twice a day L ANCET DEVICES 60128430863 Active Baltazar Childers MD Active TRUETRACK TEST STRP Test twice a day GLUCOSE BLOO D 15238442287 Active KENDALL Juarez Active TRUETRACK BLOOD GLUCOSE W/DEVICE KIT Test twice a day BLOOD GLUCOSE MONITORING SUPPL 17078942525 Active Baltazar Childers MD Activ e HYDROCODONE-ACETAMINOPHEN 7.5-325 MG TABS Take 1 tab every 6-8 hour s PRN HYDROCODONE-ACETAMINOPHEN 33230892205 Active Baltazar Childers MD Active NORTRIPTYLINE HCL 50 MG CAPS 1 every night for neuropathy 4 NORTRIPTYLINE HCL 72280724997 Active Baltazar Childers MD Acti ve GABAPENTIN 300 MG CAPS 1 three times a day GABAPE NTIN 67037743589 Active Baltazar Childers MD Active GABAPENTIN 300 MG CAPS 1 po qd x 2 days, then 1 po BID x 2 d ays, then 1 po TID GABAPENTIN 67549408997 No Longer Active Baltazar silverman MD Active TRAMADOL HCL 50 MG TABS 1 twice a day as needed for pain TRAMADOL HCL 64473296497 Active Baltazar Childers MD Active NAPROXEN 500 MG TABS 1 tablet by mouth twice daily NAPROXEN 03675544208 No Longer Active Baltazar Childers MD Active PROAIR HFA 108 (90 BASE) MCG/ACT AERS 2 puffs four times a d ay as needed ALBUTEROL SULFATE 88448829686 Active KENDALL Juarez Active DEPO-TESTOSTERONE 200 MG/ML OIL as directed RUFINO TOSTERONE CYPIONATE 33436063546 No Longer Active Baltazar Childers MD Active LIPITOR 20 MG TABS Take one by mouth daily in evening ATORVASTATIN CALCIUM 99376738993 No Longer Active Baltazar Childers MD Activ e CRESTOR 10 MG TABS 1 by mouth every day R OSUVASTATIN CALCIUM 66968786600 No Longer Active Baltazar Childers MD Activ e PHENTERMINE HCL 37.5 MG TABS Take one by mouth daily 2 PHENTERMINE HCL 58519085801 No Longer Active Baltazar Childers MD Activ e ROBAXIN-750 750 MG TABS Take one by mouth daily ME THOCARBAMOL 28087801040 Active Baltazar Childers MD Active TIZANIDINE HCL 4 MG TABS 1 daily as needed for muscle spasm 2011 TIZANIDINE HCL 60285988012 No Longer Active Dawna Salazar RN Active [id number]-[id number] 50-325-40 MG TABS 1 four time s a day as needed for heacache [id number] 13191283430 Active Baltazar Childers MD Active SUMATRIPTAN SUCCINATE 100 MG TABS 1 tablet by mouth at onset of migraine as needed SUMATRIPTAN SUCCINATE 05366548125 Active Baltazar bynum MD Active LORATADINE 10 MG TABS Take one by mouth daily LORATADINE 53229193784 Active Baltazar Childers MD Active OMEPRAZOLE 20 MG CPDR Take one by mouth daily OMEPRAZOLE 75470046464 Active KENDALL Juarez Active HYDROXYZINE HCL 25 MG TABS Take one by mouth daily HYDROXYZINE HCL 61858922536 Active Baltazar Childers MD Active GLIPIZIDE 10 MG TABS 1 tablet by mouth twice daily GLIPIZIDE 97543327452 Active Baltazar Childers MD Active ALPRAZOLAM 1 MG TABS 1 tablet by mouth daily at bedtime for restles s leg ALPRAZOLAM 58944156496 Active Baltazar Childers MD Active METFORMIN HCL 1000 MG TABS Take one by mouth twice daily METFORMIN HCL 04244212113 Active Baltazar Childers MD Active TIZANIDINE HCL 4 MG TABS 1 daily as needed for muscle spasm 2011 TIZANIDINE HCL 4 MG TABS 062294 TIZANIDINE HCL Inactiv e PHENTERMINE HCL 37.5 MG TABS Take one by mouth daily 2 PHENTERMINE HCL 37.5 MG TABS 473058 PHENTERMINE HCL Inactive CRESTOR 10 MG TABS 1 by mouth every day C RESTOR 10 MG TABS 570628 ROSUVASTATIN CALCIUM Inactive LIPITOR 20 MG TABS Take one by mouth daily in evening LIPITOR 20 MG TABS 150323 ATORVASTATIN CALCIUM Inactive DEPO-TESTOSTERONE 200 MG/ML OIL as directed 8 DEPO-TESTOSTERONE 200 MG/ML OIL 425477 TESTOSTERONE CYPIONATE Inactive NAPROXEN 500 MG TABS 1 tablet by mouth twice daily 201 07/27/22 NAPROXEN 500 MG TABS 424470 NAPROXEN Inactive GABAPENTIN 300 MG CAPS 1 po qd x 2 days, then 1 po BID x 2 d ays, then 1 po TID GABAPENTIN 300 MG CAPS 509218 GABAPENTIN Inact amie ONETOUCH ULTRA BLUE STRP Test twice a day ONETOUCH ULTRA BLUE STRP GLUCOSE BLOOD Inactive NAPROXEN SODIUM 220 MG ORAL TABS 1 three times a day as needed 2 NAPROXEN SODIUM 220 MG ORAL TABS 021629 NAPROXEN SODIUM Inactive TOUJEO SOLOSTAR 300 UNIT/ML SC SOPN 10 units SC daily TOUJEO SOLOSTAR 300 UNIT/ML SC SOPN INSULIN GLARGINE Inac tive SUCRALFATE 1 GM TABS 1 four times a day to coat the stomach 2015 SUCRALFATE 1 GM TABS 633773 SUCRALFATE Inactive Immunizations Vaccine Administration Date Value Standard Floyd cription pneumococcal immunization administered Pneumovax 23 [CVX33] pneumococcal polysaccharide vaccine, 23 valent Seasonal influenza vaccine, injectable, containing preservative, for > 3 years old (Afluria, FluLaval, Fluzone, Fluvirin, Fluarix, Agriflu(>= 18 yo)) Fluzone (>3 yrs.) [[id number]] Influenza, seasonal, inject able Seasonal influenza vaccine, injectable, containing preservative, for > 3 years old (Afluria, FluLaval, Fluzone, Fluvirin, Fluarix, Agriflu(>= 18 yo)) Fluzone (>3 yrs.) [[id number]] Influenza, seasonal, inject able Vital Signs Date [...] C - Chemistry sodium, serum 139 mmol/L 305-073 5870/07/07 potassium, serum 4.5 mmol/L 3.5-5.2 chloride, serum [...] Panel - Chemistry sodium, serum 143 mmol/L 686-888 6256/12/19 carbon dioxide, venous blood 32.5 mmol/L 21.0-32 .0 potassium, serum 4.9 mmol/L 3.5-5.2 chloride, serum 101 mmol/L 98-107 blood glucose 129 mg/dL 65-110 urea nitrogen, blood 18 mg/dL 7-18 creatinine, serum 1.79 mg/dL 0.55-1.30 alanine aminotransferase (SGPT), serum 34 U/L 12-78 aspartate aminotransferase (SGOT), serum 26 U/L 15-37 calcium, serum 8.9 mg/dL 8.5-10.1 bilirubin, serum, total 0.30 mg/dL 0.00-1.00 cholesterol, serum 214 mg/dL 227-917 7399/12/19 triglyceride, serum, fasting 351 mg/dL 30-200 HDL cholesterol, serum 52 mg/dL 32-96 LDL cholesterol, serum 92 mg/dL 0-130 Lab Report: HGBA1C - Chemistry hemoglobin A1C, blood, as % of total hemoglobin 7.3 % 4.3-6.0 Lab Report: Renal Panel - Chemistry sodium, serum 141 mmol/L 398-678 8080/08/08 potassium, serum 4.9 mmol/L 3.5-5.2 chloride, serum 101 mmol/L 98-107 carbon dioxide, venous blood 34.1 mmol/L 21.0-32 .0 creatinine, serum 1.98 mg/dL 0.55-1.30 blood glucose 193 mg/dL 65-110 urea nitrogen, blood 30 mg/dL 7-18 calcium, serum 9.8 mg/dL 8.5-10.1 Encounters Code Encounter Date Provider Facility CPT-91106 Level 4 Est. Patient 11:34:17 CDT Baltazar Childers MD [facility] CPT-61253 Level 3 Est. Patient 16:40:40 CDT Baltazar Childers MD [facility] CPT-04551 Level 4 Est. Patient 10:41:24 CDT Baltazar Childers MD [facility]-80118 Level 4 Est. Patient 16:01:48 CDT Baltazar Childers MD [facility] CPT-79009 Level 4 Est. Patient 16:54:07 SHOESHINER Baltazar Childers MD [facility]-85354 Level 4 Est. Patient 15:42:12 CDT Baltazar Childers MD [facility] CPT-69463 Level 4 Est. Patient 11:29:55 CDT Baltazar Childers MD [facility] CPT-49585 Level 4 Est. Patient 14:15:19 CDT Baltazar Childers MD [facility] CPT-73366 Level 4 Est. Patient 12:20:13 CDT Baltazar Childers MD [facility] CPT-57690 Level 4 Est. Patient 14:52:45 SHOESHINER Baltazar Childers MD [facility] CPT-99823 Level 4 Est. Patient 14:18:34 SHOESHINER Baltazar Childers MD [facility] CPT-87680 Level 4 Est. Patient 15:18:29 CDT Baltazar Childers MD [facility] CPT-59346 Level 3 Est. Patient 12:45:34 CDT Baltazar Childers MD [facility] CPT-67816 Level 3 Est. Patient 10:10:11 CDT Baltazar Childers MD [facility] CPT-94710 Level 3 Est. Patient 14:07:50 CDT Baltazar Childers MD [facility] CPT-63586 Level 4 Est. Patient 12:26:10 SHOESHINER Baltazar Childers MD [facility] CPT-50519 Level 4 Est. Patient 14:45:38 CDT Baltazar Childers MD [facility] CPT-42935 Level 4 New Patient 12:30:48 CDT Baltazar hinton MD [facility] Procedures Code Procedure Name Date Entry Date Standard Desc ription CPT-88158 Lipid - LAB USE ONLY 17:39:15 SHOESHINER 9 CPT-22192 HGBA1C - LAB USE ONLY 17:39:15 SHOESHINER CPT-47614 CMP - LAB USE ONLY 17:39:14 SHOESHINER CPT-56506 Venipuncture Draw Fee 17:39:14 SHOESHINER CPT-70622 First Vx - Ix admin via ID I M or jet injects without counseling by physician 16:55:17 SHOESHINER CPT-60480 Fluzone Quadrivalent Intramuscular Suspe nsion 0.5 ML 16:55:17 SHOESHINER CPT-22052 Renal Panel - LAB USE ONLY 17:39:20 CDT 201 10/31/07 CPT-84720 CBC - LAB USE ONLY 17:39:20 CDT CPT-59814 Venipuncture Draw Fee 17:39:20 CDT CPT-35636 Venipuncture Draw Fee 14:33:30 CDT CPT-69162 Renal Panel - LAB USE ONLY 14:33:30 CDT 201 10/31/07 CPT-24888 CBC - LAB USE ONLY 14:33:29 CDT CPT-16913 Venipuncture Draw Fee 14:50:21 SHOESHINER CPT-05449 Immunization Single Admin 17:35:35 CDT 2014 CPT-34485 Fluzone Quadrivalent preservative free ( >=3yrs.) 17:35:35 CDT CPT-35018 Venipuncture Draw Fee 12:10:27 SHOESHINER CPT-36155 Fluzone Quadrivalent Intramuscular Suspe nsion 0.5 ML 10:49:13 CDT CPT-05665 First Vx Component - Ix admi n via ID IM or jet inj without physician counseling 15:17:19 SHOESHINER CPT-07095 Pneumovax 23 15:17:19 SHOESHINER CPT-92945 Pneumovax 14:52:45 SHOESHINER CPT-11508 Venipuncture Draw Fee 14:06:30 SHOESHINER CPT-000 Give Appropriate Flu Vaccine 14:18:34 SHOESHINER 2 CPT-73980 Administration single or combination vac cine inc oral 14:46:00 SHOESHINER CPT-28215 Influenza split virus > age 3 14:46:00 SHOESHINER CPT-OV Office Visit 19:13:16 CDT CPT-82285 Zostavax 18:41:56 CDT CPT-93392 Administration single or combination vac cine inc oral 12:56:39 CDT CPT-56368 Zoster Vaccine (Zostavax) 12:56:39 CDT 2012 CPT-58771 Venipuncture Draw Fee 10:58:57 CDT CPT-03910 Sono pelvis non OB uterus ovaries cervix 17:45:04 CDT CPT-84440 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
--- OUTSIDE RECORDS SUMMARY | 2019-10-27 12:26 | XMS REPORT | Clinical Summary ---
Author Author Admin, Elba Lance [facility] Address Unknown Phone Unavailable Allergies, 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 [employer] Benign neoplasm of colon PERIPHERAL NEUROPATHY [...] MISC use 1 daily INSULIN PEN NEEDLE 21252766752 Active Martita Herbert RMA Active TOUJEO SOLOSTAR 300 UNIT/ML SC SOPN 10 units SC daily INSULIN GLARGINE 42035554856 No Longer Active Martita Herbert RMA Active LANTUS SOLOSTAR 100 UNIT/ML SC SOPN 10 units SC daily INSULIN GLARGINE 41475288292 Active Martita Herbert RMA Active NAPROXEN SODIUM 220 MG ORAL TABS 1 three times a day as needed 2 NAPROXEN SODIUM 89377834065 No Longer Active Baltazar Childers MD Active ATORVASTATIN CALCIUM 20 MG ORAL TABS Take 1 tab daily ATORVASTATIN CALCIUM 05252290762 Active KENDALL Juarez Active FUROSEMIDE 40 MG TABS Take one by mouth daily FUROSEMIDE 71786315196 Active Baltazar Childers MD Active LISINOPRIL 20 MG TABS Take one by mouth daily at bedtime LISINOPRIL 08615118076 Active Baltazar Childers MD Active ONETOUCH ULTRA BLUE STRP Test twice a day GLUCO SE BLOOD 43211357073 No Longer Active Baltazar Childers MD Active TRUEPLUS LANCETS 33G MISC Test twice a day LANCET S 29769952115 Active KENDALL Juarez Active TRUEDRAW LANCING DEVICE MISC Test twice a day L ANCET DEVICES 50835801744 Active Baltazar Childers MD Active TRUETRACK TEST STRP Test twice a day GLUCOSE BLOO D 25402499260 Active KENDALL Juarez Active TRUETRACK BLOOD GLUCOSE W/DEVICE KIT Test twice a day BLOOD GLUCOSE MONITORING SUPPL 18560180669 Active Baltazar Childers MD Activ e HYDROCODONE-ACETAMINOPHEN 7.5-325 MG TABS Take 1 tab every 6-8 hour s PRN HYDROCODONE-ACETAMINOPHEN 65750808257 Active Baltazar Childers MD Active NORTRIPTYLINE HCL 50 MG CAPS 1 every night for neuropathy 4 NORTRIPTYLINE HCL 25472868298 Active Baltazar Childers MD Acti ve GABAPENTIN 300 MG CAPS 1 three times a day GABAPE NTIN 20021001212 Active Baltazar Childers MD Active GABAPENTIN 300 MG CAPS 1 po qd x 2 days, then 1 po BID x 2 d ays, then 1 po TID GABAPENTIN 64959406598 No Longer Active Baltazar silverman MD Active TRAMADOL HCL 50 MG TABS 1 twice a day as needed for pain TRAMADOL HCL 83642185606 Active Baltazar Childers MD Active NAPROXEN 500 MG TABS 1 tablet by mouth twice daily NAPROXEN 26302296203 No Longer Active Baltazar Childers MD Active PROAIR HFA 108 (90 BASE) MCG/ACT AERS 2 puffs four times a d ay as needed ALBUTEROL SULFATE 53840583535 Active KENDALL Juarez Active DEPO-TESTOSTERONE 200 MG/ML OIL as directed RUFINO TOSTERONE CYPIONATE 76801111957 No Longer Active Baltazar Childers MD Active LIPITOR 20 MG TABS Take one by mouth daily in evening ATORVASTATIN CALCIUM 19301810037 No Longer Active Baltazar Childers MD Activ e CRESTOR 10 MG TABS 1 by mouth every day R OSUVASTATIN CALCIUM 68880093732 No Longer Active Baltazar Childers MD Activ e PHENTERMINE HCL 37.5 MG TABS Take one by mouth daily 2 PHENTERMINE HCL 69179171389 No Longer Active Baltazar Childers MD Activ e ROBAXIN-750 750 MG TABS Take one by mouth daily ME THOCARBAMOL 48763360818 Active Baltazar Childers MD Active TIZANIDINE HCL 4 MG TABS 1 daily as needed for muscle spasm 2011 TIZANIDINE HCL 29974602912 No Longer Active Dawna Salazar RN Active [id number] 50-325-40 MG TABS 1 four time s a day as needed for heacache [id number] 98431617926 Active Baltazar Childers MD Active SUMATRIPTAN SUCCINATE 100 MG TABS 1 tablet by mouth at onset of migraine as needed SUMATRIPTAN SUCCINATE 01168813029 Active KENDALL Juarez Active LORATADINE 10 MG TABS Take one by mouth daily LORATADINE 62705014713 Active Baltazar Childers MD Active OMEPRAZOLE 20 MG CPDR Take one by mouth daily OMEPRAZOLE 37895056556 Active [place] Fitzgeralder Active HYDROXYZINE HCL 25 MG TABS Take one by mouth daily HYDROXYZINE HCL 88821629515 Active Baltazar Childers MD Active GLIPIZIDE 10 MG TABS 1 tablet by mouth twice daily GLIPIZIDE 03947634728 Active Baltazar Childers MD Active ALPRAZOLAM 1 MG TABS 1 tablet by mouth daily at bedtime for restles s leg ALPRAZOLAM 46303607305 Active Baltazar Childers MD Active METFORMIN HCL 1000 MG TABS Take one by mouth twice daily METFORMIN HCL 11380546744 Active Baltazar Childers MD Active TIZANIDINE HCL 4 MG TABS 1 daily as needed for muscle spasm 2011 TIZANIDINE HCL 4 MG TABS 711905 TIZANIDINE HCL Inactiv e PHENTERMINE HCL 37.5 MG TABS Take one by mouth daily 2 PHENTERMINE HCL 37.5 MG TABS 609285 PHENTERMINE HCL Inactive CRESTOR 10 MG TABS 1 by mouth every day C RESTOR 10 MG TABS 143710 ROSUVASTATIN CALCIUM Inactive LIPITOR 20 MG TABS Take one by mouth daily in evening LIPITOR 20 MG TABS 499578 ATORVASTATIN CALCIUM Inactive DEPO-TESTOSTERONE 200 MG/ML OIL as directed 8 DEPO-TESTOSTERONE 200 MG/ML OIL 679094 TESTOSTERONE CYPIONATE Inactive NAPROXEN 500 MG TABS 1 tablet by mouth twice daily 201 07/27/22 NAPROXEN 500 MG TABS 603235 NAPROXEN Inactive GABAPENTIN 300 MG CAPS 1 po qd x 2 days, then 1 po BID x 2 d ays, then 1 po TID GABAPENTIN 300 MG CAPS 757601 GABAPENTIN Inact amie ONETOUCH ULTRA BLUE STRP Test twice a day ONETOUCH ULTRA BLUE STRP GLUCOSE BLOOD Inactive NAPROXEN SODIUM 220 MG ORAL TABS 1 three times a day as needed 2 NAPROXEN SODIUM 220 MG ORAL TABS 307826 NAPROXEN SODIUM Inactive TOUJEO SOLOSTAR 300 UNIT/ML [...] Fluarix, Agriflu(>= 18 yo)) Fluzone (>3 yrs.) [[id number]] Influenza, seasonal, inject able Seasonal influenza vaccine, injectable, containing preservative, for > 3 years old (Afluria, FluLaval, Fluzone, Fluvirin, Fluarix, Agriflu(>= 18 yo)) Fluzone (>3 yrs.) [[id number]] Influenza, seasonal, inject able Vital Signs Date [...] C - Chemistry sodium, serum 139 mmol/L 700-498 7797/07/07 potassium, serum 4.5 mmol/L 3.5-5.2 chloride, serum [...] 7.9 % 4.3-6.0 sodium, serum 139 mmol/L 599-385 5199/02/04 potassium, serum 5.4 mmol/L 3.5-5.2 chloride, serum [...] Panel - Chemistry sodium, serum 138 mmol/L 244-309 7851/11/23 carbon dioxide, venous blood 32.4 mmol/L 21.0-32 .0 potassium, serum 5.7 mmol/L 3.5-5.2 chloride, serum 98 mmol/L 98-107 blood glucose 136 mg/dL 65-110 urea nitrogen, blood 18 mg/dL 7-18 creatinine, serum 1.71 mg/dL 0.55-1.30 alanine aminotransferase (SGPT), serum 71 U/L 12-78 aspartate aminotransferase (SGOT), serum 34 U/L 15-37 calcium, serum 9.4 mg/dL 8.5-10.1 bilirubin, serum, total 0.40 mg/dL 0.00-1.00 cholesterol, serum 405 mg/dL 597-294 9146/11/23 triglyceride, serum, fasting 709 mg/dL 30-200 HDL [...] mg/dL Encounters Code Encounter Date Provider Facility CPT-02170 Level 3 Est. Patient 16:40:40 CDT Baltazar Childers MD [facility] CPT-20143 Level 4 Est. Patient 10:41:24 CDT Baltazar Childers MD [facility] CPT-50162 Level 4 Est. Patient 16:01:48 CDT Baltazar Childers MD [facility] CPT-90385 Level 4 Est. Patient 16:54:07 CARBONIZER Baltazar Childers MD [facility] CPT-92842 Level 4 Est. Patient 15:42:12 CDT Baltazar Childers MD [facility] CPT-55746 Level 4 Est. Patient 11:29:55 CDT Baltazar Childers MD [facility] CPT-81770 Level 4 Est. Patient 14:15:19 CDT Baltazar Childers MD [facility] CPT-37957 Level 4 Est. Patient 12:20:13 CDT Baltazar Childers MD [facility] CPT-02643 Level 4 Est. Patient 14:52:45 CARBONIZER Baltazar Childers MD [facility] CPT-69951 Level 4 Est. Patient 14:18:34 CARBONIZER Baltazar Childers MD [facility] CPT-15083 Level 4 Est. Patient 15:18:29 CDT Baltazar Childers MD [facility] CPT-69866 Level 3 Est. Patient 12:45:34 CDT Baltazar Childers MD [facility] CPT-25383 Level 3 Est. Patient 10:10:11 CDT Baltazar Childers MD [facility] CPT-26182 Level 3 Est. Patient 14:07:50 CDT Baltazar Childers MD [facility] CPT-51718 Level 4 Est. Patient 12:26:10 CARBONIZER Baltazar Childers MD [facility] CPT-23249 Level 4 Est. Patient 14:45:38 CDT Baltazar Childers MD [facility] CPT-72458 Level 4 New Patient 12:30:48 CDT Baltazar hinton MD [facility] Procedures Code Procedure Name Date Entry Date Standard Desc ription CPT-01994 Renal Panel - LAB USE ONLY 17:39:20 CDT 201 10/31/07 CPT-97948 CBC - LAB USE ONLY 17:39:20 CDT CPT-76354 Venipuncture Draw Fee 17:39:20 CDT CPT-90741 Venipuncture Draw Fee 14:33:30 CDT CPT-09266 Renal Panel - LAB USE ONLY 14:33:30 CDT 201 10/31/07 CPT-42367 CBC - LAB USE ONLY 14:33:29 CDT CPT-50968 Venipuncture Draw Fee 14:50:21 CARBONIZER CPT-93242 Immunization Single Admin 17:35:35 CDT 2014 CPT-55757 Fluzone Quadrivalent preservative free ( >=3yrs.) 17:35:35 CDT CPT-33965 Venipuncture Draw Fee 12:10:27 CARBONIZER CPT-11105 Fluzone Quadrivalent Intramuscular Suspe nsion 0.5 ML 10:49:13 CDT CPT-70313 First Vx Component - Ix admi n via ID IM or jet inj without physician counseling 15:17:19 CARBONIZER CPT-12206 Pneumovax 23 15:17:19 CARBONIZER CPT-66936 Pneumovax 14:52:45 CARBONIZER CPT-89129 Venipuncture Draw Fee 14:06:30 CARBONIZER CPT-000 Give Appropriate Flu Vaccine 14:18:34 CARBONIZER 2 CPT-52404 Administration single or combination vac cine inc oral 14:46:00 CARBONIZER CPT-64098 Influenza split virus > age 3 14:46:00 CARBONIZER CPT-OV Office Visit 19:13:16 CDT CPT-30994 Zostavax 18:41:56 CDT CPT-38024 Administration single or combination vac cine inc oral 12:56:39 CDT CPT-44867 Zoster Vaccine (Zostavax) 12:56:39 CDT 2012 CPT-51090 Venipuncture Draw Fee 10:58:57 CDT CPT-19179 Sono pelvis non OB uterus ovaries cervix 17:45:04 CDT CPT-39224 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
--- OUTSIDE RECORDS SUMMARY | 2019-10-27 12:26 | XMS REPORT | Clinical Summary ---
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 Benign neoplasm of colon PERIPHERAL NEUROPATHY [...] ronary atherosclerosis of unspecified type of vessel, [place] or graft OTH NONSPC ABN FINDNG RAD&OTH [...] three times a day 201 12/03/26 GABAPENTIN [id number] No Longer Active Baltazar Childers MD Activ e LISINOPRIL 20 MG ORAL TABLET 1 tablet by mouth daily at night 2016 LISINOPRIL 81173408438 Active Baltazar Childers MD Active ZITHROMAX Z-ISAIAS 250 MG ORAL TABLET Take two tablets to day and then 1 tablet daily for 4 days AZITHROMYCIN 70623678340 No Longer A ctive Baltazar Childers MD Active LANTUS SOLOSTAR 100 UNIT/ML SUBCUTANEOUS SOLUTION PEN- INJECTOR 30 units SC daily INSULIN GLARGINE 39788740741 Active Baltazar Childers MD Active AMLODIPINE BESYLATE 5 MG ORAL TABLET 1 tab daily for HTN AMLODIPINE BESYLATE 89691146613 Active Baltazar Childers MD Active SYNTHROID 100 MCG ORAL TABLET 1 tablet by mouth daily LEVOTHYROXINE SODIUM 20948732724 Active Baltazar Childers MD Active GLIPIZIDE 10 MG ORAL TABLET take 2 tablets twice daily GLIPIZIDE 13350889101 Active Baltazar Childers MD Active SUCRALFATE 1 GM ORAL TABLET 1 four times a day to coat the stoma ch SUCRALFATE 22922282199 No Longer Active Baltazar Childers MD Active PEN NEEDLES 31G X 6 MM use 1 daily INSULIN PEN NE EDLE 04834499392 Active KENDALL Juarez Active CELINA POWERSOSTNAKITA 300 UNIT/ML SUBCUTANEOUS SOLUTION PEN- INJECTOR 10 units SC daily INSULIN GLARGINE 50854094307 No Longer Active Rola Godinez RMA Active NAPROXEN SODIUM 220 MG ORAL TABLET 1 three times a day as needed NAPROXEN SODIUM 37510751734 No Longer Active Baltazar Childers MD Active ATORVASTATIN CALCIUM 20 MG ORAL TABLET Take 1 tab daily ATORVASTATIN CALCIUM 48185535381 Active Baltazar Childers MD A ctive FUROSEMIDE 40 MG ORAL TABLET Take one by mouth daily FUROSEMIDE 47122635283 Active Baltazar Childers MD Active LISINOPRIL 20 MG ORAL TABLET Take one by mouth daily at bedtime LISINOPRIL 65711549070 No Longer Active Baltazar Childers MD Active ONETOUCH ULTRA BLUE IN VITRO STRIP Test twice a day 07/11/11 GLUCOSE BLOOD 00825936041 No Longer Active Baltazar Childers MD Acti ve TRUEPLUS LANCETS 33G Test twice a day LANCETS 8341986 5686 Active KENDALL Juarez Active TRUEDRAW LANCING DEVICE Test twice a day LANCET DEVICES 26116335676 Active Baltazar Childers MD Active TRUETRACK TEST IN VITRO STRIP Test twice a day GLUCOSE BLOOD 59027095825 Active KENDALL Juarez Active TRUETRACK BLOOD GLUCOSE w/Device KIT Test twice a day BLOOD GLUCOSE MONITORING SUPPL 33287584421 Active Baltazar Childers MD Activ e HYDROCODONE-ACETAMINOPHEN 7.5-325 MG ORAL TABLET Take 1 tab every 6-8 hours PRN HYDROCODONE-ACETAMINOPHEN 94064164759 Active Baltazar Nickerson MD Active NORTRIPTYLINE HCL 50 MG ORAL CAPSULE 1 every night for neuropathy 2 NORTRIPTYLINE HCL 28501350871 Active Baltazar Childers MD Acti ve GABAPENTIN 300 MG ORAL CAPSULE 1 po qd x 2 days, then 1 po BID x 2 days, then 1 po TID GABAPENTIN 44957083872 No Longer Active Baltazar Childers MD Active TRAMADOL HCL 50 MG ORAL TABLET 1 twice a day as needed for pain 201 07/27/28 TRAMADOL HCL 72981494382 Active Baltazar Childers MD Active NAPROXEN 500 MG ORAL TABLET 1 tablet by mouth twice daily NAPROXEN 21204809483 No Longer Active Baltazar Childers MD Active PROAIR HFA 108 (90 Base) MCG/ACT INHALATION AEROSOL SO LUTION 2 puffs four times a day as needed ALBUTEROL SULFATE 72959643513 Active KENDALL Bowie Active DEPO-TESTOSTERONE 200 MG/ML INTRAMUSCULAR SOLUTION as directed TESTOSTERONE CYPIONATE 02359138915 No Longer Active Baltazar Childers MD Active LIPITOR 20 MG ORAL TABLET Take one by mouth daily in evening ATORVASTATIN CALCIUM 13581116569 No Longer Active Baltazar Childers MD Active CRESTOR 10 MG ORAL TABLET 1 by mouth every day ROSUVASTATIN CALCIUM 78493991759 No Longer Active Baltazar Childers MD Active PHENTERMINE HCL 37.5 MG ORAL TABLET Take one by mouth daily PHENTERMINE HCL 15925681415 No Longer Active Baltazar Childers MD Ac tive ROBAXIN-750 750 MG ORAL TABLET Take one by mouth daily METHOCARBAMOL 74446868668 Active Baltazar Childers MD Active TIZANIDINE HCL 4 MG ORAL TABLET 1 daily as needed for muscle spa sm TIZANIDINE HCL 33708948760 No Longer Active Dawna Salazar RN Active [id number] 50-325-40 MG ORAL TABLET 1 fo ur times a day as needed for heacache [id number] 47424704990 Active Baltazar Childers MD Active SUMATRIPTAN SUCCINATE 100 MG ORAL TABLET 1 tablet by m outh at onset of migraine as needed SUMATRIPTAN SUCCINATE 85361476012 Active KENDALL Restrepo Active LORATADINE 10 MG ORAL TABLET Take one by mouth daily LORATADINE 87845926756 Active Baltazar Childers MD Active OMEPRAZOLE 20 MG ORAL CAPSULE DELAYED RELEASE Take one by mouth jostin ly OMEPRAZOLE 94748172864 Active Baltazar Childers MD Active HYDROXYZINE HCL 25 MG ORAL TABLET Take one by mouth daily HYDROXYZINE HCL 95262936653 Active Baltazar Chliders MD Active ALPRAZOLAM 1 MG ORAL TABLET 1 tablet [facility] 80321485122 Active Baltazar Childers MD Active METFORMIN HCL 1000 MG ORAL TABLET Take one by mouth twice daily METFORMIN HCL 75339787822 Active Baltazar Childers MD Active TIZANIDINE HCL 4 MG ORAL TABLET 1 daily as needed for muscle spa sm TIZANIDINE HCL 4 MG ORAL TABLET 024113 TIZANIDINE HCL Inactive PHENTERMINE HCL 37.5 MG ORAL TABLET Take one by mouth daily PHENTERMINE HCL 37.5 MG ORAL TABLET 481444 PHENTERMINE HCL Inac tive CRESTOR 10 MG ORAL TABLET 1 by mouth every day CRESTOR 10 MG ORAL TABLET 541496 ROSUVASTATIN CALCIUM Inactive LIPITOR 20 MG ORAL TABLET Take one by mouth daily in evening LIPITOR 20 MG ORAL TABLET 094058 ATORVASTATIN CALCIUM Inactive DEPO-TESTOSTERONE 200 MG/ML INTRAMUSCULAR SOLUTION as directed DEPO-TESTOSTERONE 200 MG/ML INTRAMUSCULAR SOLUTION 203288 RUFINO TOSTERONE CYPIONATE Inactive NAPROXEN 500 MG ORAL TABLET 1 tablet by mouth twice daily NAPROXEN 500 MG ORAL TABLET 524159 NAPROXEN Inactive GABAPENTIN 300 MG ORAL CAPSULE 1 po qd x 2 days, then 1 po BID x 2 days, then 1 po TID GABAPENTIN 300 MG ORAL CAPSULE 850201 GABAP ENTIN Inactive ONETOUCH ULTRA BLUE IN VITRO STRIP Test twice a day 07/11/11 ONETOUCH ULTRA BLUE IN VITRO STRIP GLUCOSE BLOOD Inact amie NAPROXEN SODIUM 220 MG ORAL TABLET 1 three times a day as needed NAPROXEN SODIUM 220 MG ORAL TABLET 275780 NAPROXEN SODI UM Inactive TOUJEO SOLOSTAR 300 UNIT/ML SUBCUTANEOUS SOLUTION PEN- INJECTOR 10 units SC daily TOUJEO SOLOSTAR 300 UNIT/ML SUBCUTANEOUS SOLUTION PEN-INJECTOR INSULIN GLARGINE Inactive SUCRALFATE 1 GM ORAL TABLET 1 four times a day to coat the stoma ch SUCRALFATE 1 GM ORAL TABLET 399615 SUCRALFATE Inac tive GABAPENTIN 300 MG ORAL CAPSULE 1 three times a day 201 12/03/26 GABAPENTIN 300 MG ORAL CAPSULE 045677 GABAPENTIN Inactive ZITHROMAX Z-ISAIAS 250 MG ORAL TABLET Take two tablets to day and then 1 tablet daily for 4 days ZITHROMAX Z-ISAIAS 250 MG ORAL TAB LET 179043 AZITHROMYCIN Inactive Immunizations Vaccine Administration Date Value Standard Floyd cription pneumococcal immunization administered Pneumovax 23 [CVX33] pneumococcal polysaccharide vaccine, 23 valent Seasonal influenza vaccine, injectable, containing preservative, for > 3 years old (Afluria, FluLaval, Fluzone, Fluvirin, Fluarix, Agriflu(>= 18 yo)) Fluzone (>3 yrs.) [[id number]] Influenza, seasonal, inject able Seasonal influenza vaccine, injectable, containing preservative, for > 3 years old (Afluria, FluLaval, Fluzone, Fluvirin, Fluarix, Agriflu(>= 18 yo)) Fluzone (>3 yrs.) [[id number]] Influenza, seasonal, inject able Vital Signs Date [...] mg/dL 7-18 creatinine, serum 1.68 mg/dL 0.60-1.30 blood glucose 218 mg/dL 65-110 carbon dioxide, venous blood 28.7 mmol/L 21.0-32 .0 chloride, serum 98 mmol/L 98-107 potassium, serum 4.7 mmol/L 3.5-5.2 sodium, serum 139 mmol/L 136-145 Lab Report: Basic Metabolic Panel, HGBA1 C - Chemistry sodium, serum 143 mmol/L 312-874 6726/06/19 potassium, serum 5.9 mmol/L 3.5-5.2 chloride, serum 105 mmol/L 98-107 carbon dioxide, venous blood 30.2 mmol/L 21.0-32 .0 blood glucose 189 mg/dL 65-110 calcium, serum 9.7 mg/dL 8.5-10.1 urea nitrogen, blood 37 mg/dL 7-18 creatinine, serum 2.11 mg/dL 0.55-1.30 hemoglobin A1C, blood, as % of total hemoglobin 8.2 % 4.3-6.0 Lab Report: CBC, Renal Panel - Chemistry sodium, serum 142 mmol/L 021-276 1882/08/11 potassium, serum 4.8 mmol/L 3.5-5.2 chloride, serum [...] (L) - Chemistry cholesterol, serum 209 mg/dL 736-913 1641/12/27 triglyceride, serum, fasting 329 mg/dL 30-200 HDL cholesterol, serum 56 mg/dL 32-60 LDL cholesterol, serum 87 mg/dL 0-130 TSH 3.60 m[iU]/mL 0.36-3.74 Encounters Code Encounter Date Provider Facility CPT-36215 Level 4 Est. Patient 17:05:37 CDT Baltazar Childers MD [facility] CPT-54604 Level 4 Est. Patient 16:21:19 [employer]TING [employer] FEEDER Baltazar Childers MD [facility] CPT-27526 Level 4 Est. Patient 12:25:11 CDT Baltazar Childers MD [facility] CPT-66806 Level 4 Est. Patient 14:22:31 CDT Baltazar Childers MD [facility]-33889 Level 4 Est. Patient 15:44:38 CDT Shonna Parker APRN [facility]-36018 Level 4 Est. Patient 11:34:17 CDT Baltazar Childers MD [facility]-94575 Level 3 Est. Patient 16:40:40 CDT Baltazar Childers MD [facility]-92626 Level 4 Est. Patient 10:41:24 CDT Baltazar Childers MD [facility]-14981 Level 4 Est. Patient 16:01:48 CDT Baltazar Childers MD [facility]-47728 Level 4 Est. Patient 16:54:07 [employer] PR[employer] FEEDER Baltazar Childers MD [facility]-93576 Level 4 Est. Patient 15:42:12 CDT Baltazar Childers MD [facility] CPT-07365 Level 4 Est. Patient 11:29:55 CDT Baltazar Childers MD [facility] CPT-51085 Level 4 Est. Patient 14:15:19 CDT Baltazar Childers MD [facility]-26320 Level 4 Est. Patient 12:20:13 CDT Baltazar Childers MD [facility]-01619 Level 4 Est. Patient 14:52:45 [employer] FEEDER Baltazar Childers MD [facility] CPT-56732 Level 4 Est. Patient 14:18:34 [employer]TING PR[employer] FEEDER Baltazar Childers MD [facility] CPT-26793 Level 4 Est. Patient 15:18:29 CDT Baltazar Childers MD [facility]-58355 Level 3 Est. Patient 12:45:34 CDT Baltazar Childers MD [facility]-40332 Level 3 Est. Patient 10:10:11 CDT Baltazar Childers MD [facility] CPT-17194 Level 3 Est. Patient 14:07:50 CDT Baltazar Childers MD [facility] CPT-38311 Level 4 Est. Patient 12:26:10 [employer] PR[employer] FEEDER Baltazar Childers MD [facility] CPT-02483 Level 4 Est. Patient 14:45:38 CDT Baltazar Childers MD [facility] CPT-22974 Level 4 New Patient 12:30:48 CDT Baltazar hinton MD [facility] Procedures Code Procedure Name Date Entry Date Standard Desc ription CPT-97010 First Vx - Ix admin via ID I M or jet injects without counseling by physician 13:08:59 CDT CPT-22186 Fluzone Quadrivalent Intramuscular Suspe nsion 0.5 ML 13:08:59 CDT CPT-12760 Venipuncture Draw Fee 12:04:12 CDT CPT-08829 Lipid - LAB USE ONLY 17:39:15 [employer] PR[employer] FEEDER 9 CPT-62816 HGBA1C - LAB USE ONLY 17:39:15 [employer] PR[employer] FEEDER CPT-42069 CMP - LAB USE ONLY 17:39:14 [employer] PR[employer] FEEDER CPT-83568 Venipuncture Draw Fee 17:39:14 [employer]TING PR[employer] FEEDER CPT-05040 First Vx - Ix admin via ID I M or jet injects without counseling by physician 16:55:17 [employer]TING PR[employer] FEEDER CPT-41558 Fluzone Quadrivalent Intramuscular Suspe nsion 0.5 ML 16:55:17 [employer] PR[employer] FEEDER CPT-27660 Renal Panel - LAB USE ONLY 17:39:20 CDT 201 10/31/07 CPT-96058 CBC - LAB USE ONLY 17:39:20 CDT CPT-56610 Venipuncture Draw Fee 17:39:20 CDT CPT-37852 Venipuncture Draw Fee 14:33:30 CDT CPT-22599 Renal Panel - LAB USE ONLY 14:33:30 CDT 201 10/31/07 CPT-08706 CBC - LAB USE ONLY 14:33:29 CDT CPT-83103 Venipuncture Draw Fee 14:50:21 [employer] FEEDER CPT-12161 Immunization Single Admin 17:35:35 CDT 2014 CPT-97225 Fluzone Quadrivalent preservative free ( >=3yrs.) 17:35:35 CDT CPT-07946 Venipuncture Draw Fee 12:10:27 [employer] FEEDER CPT-09463 Fluzone Quadrivalent Intramuscular Suspe nsion 0.5 ML 10:49:13 CDT CPT-55186 First Vx Component - Ix admi n via ID IM or jet inj without physician counseling 15:17:19 [employer] FEEDER CPT-95393 Pneumovax 23 15:17:19 [employer] FEEDER CPT-52159 Pneumovax 14:52:45 [employer] FEEDER CPT-67356 Venipuncture Draw Fee 14:06:30 [employer] FEEDER CPT-000 Give Appropriate Flu Vaccine 14:18:34 [employer] PR[employer] FEEDER 2 CPT-94480 Administration single or combination vac cine inc oral 14:46:00 [employer] FEEDER CPT-05958 Influenza split virus > age 3 14:46:00 [employer] FEEDER CPT-OV Office Visit 19:13:16 CDT CPT-00458 Zostavax 18:41:56 CDT CPT-03101 Administration single or combination vac cine inc oral 12:56:39 CDT CPT-05699 Zoster Vaccine (Zostavax) 12:56:39 CDT 2012 CPT-94381 Venipuncture Draw Fee 10:58:57 CDT CPT-85974 Sono pelvis non OB uterus ovaries cervix 17:45:04 CDT CPT-07728 Sono retroperitoneal complete kidneys an d bladder 17:14:36 CDT CPT-OV Office Visit 14:59:38 [employer]ER CPT-J1070 Depo Testosterone 100 mg 14:50:13 CDT 03/05 CPT-92783 Abx/Therapy Injection 14:50:13 CDT CPT-35249 Administration single or combination vac cine inc oral 14:34:43 CDT CPT-72742 Influenza split virus > age 3 14:34:43 CDT CPT-J1070 Depo Testosterone 100 mg 17:37:13 CDT 01/11 CPT-38754 Abx/Therapy Injection 17:37:13 CDT CPT-74573 Venipuncture Draw Fee 16:30:13 CDT CPT-56133 Venipuncture Draw Fee 16:29:43 CDT CPT-J1070 Depo Testosterone 100 mg 14:45:38 CDT 01/11
--- OUTSIDE RECORDS SUMMARY | 2019-10-27 12:27 | XMS REPORT | Clinical Summary ---
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 Benign neoplasm of colon PERIPHERAL NEUROPATHY [...] ronary atherosclerosis of unspecified type of vessel, nondalton or graft OTH NONSPC ABN FINDNG RAD&OTH [...] three times a day 201 12/03/26 GABAPENTIN [id number] No Longer Active Baltazar Childers MD Activ e LISINOPRIL 20 MG ORAL TABLET 1 tablet by mouth daily at night 2016 LISINOPRIL 91337081536 Active Baltazar Childers MD Active ZITHROMAX Z-ISAIAS 250 MG ORAL TABLET Take two tablets to day and then 1 tablet daily for 4 days AZITHROMYCIN 35766925087 No Longer A ctive Baltazar Childers MD Active LANTUS SOLOSTAR 100 UNIT/ML SUBCUTANEOUS SOLUTION PEN- INJECTOR 30 units SC daily INSULIN GLARGINE 26719988654 Active Baltazar Childers MD Active AMLODIPINE BESYLATE 5 MG ORAL TABLET 1 tab daily for HTN AMLODIPINE BESYLATE 11522424631 Active Baltazar Childers MD Active SYNTHROID 100 MCG ORAL TABLET 1 tablet by mouth daily LEVOTHYROXINE SODIUM 65329249729 Active Baltazar Childers MD Active GLIPIZIDE 10 MG ORAL TABLET take 2 tablets twice daily GLIPIZIDE 72018457131 Active Baltazar Childers MD Active SUCRALFATE 1 GM ORAL TABLET 1 four times a day to coat the stoma ch SUCRALFATE 14195234319 No Longer Active Baltazar Childers MD Active PEN NEEDLES 31G X 6 MM use 1 daily INSULIN PEN NE EDLE 47335568148 Active KENDALL Juarez Active CELINA POWERSOSTNAKITA 300 UNIT/ML SUBCUTANEOUS SOLUTION PEN- INJECTOR 10 units SC daily INSULIN GLARGINE 93852874110 No Longer Active Rola Godinez RMA Active NAPROXEN SODIUM 220 MG ORAL TABLET 1 three times a day as needed NAPROXEN SODIUM 15068091603 No Longer Active Baltazar Childers MD Active ATORVASTATIN CALCIUM 20 MG ORAL TABLET Take 1 tab daily ATORVASTATIN CALCIUM 75891518134 Active Baltazar Childers MD A ctive FUROSEMIDE 40 MG ORAL TABLET Take one by mouth daily FUROSEMIDE 73383671825 Active Jessy Arellano LPN Active LISINOPRIL 20 MG ORAL TABLET Take one by mouth daily at bedtime LISINOPRIL 08928827729 No Longer Active Baltazar Childers MD Active ONETOUCH ULTRA BLUE IN VITRO STRIP Test twice a day 07/11/11 GLUCOSE BLOOD 71774313308 No Longer Active Baltazar Childers MD Acti ve TRUEPLUS LANCETS 33G Test twice a day LANCETS 1475544 5535 Active KENDALL Juarez Active TRUEDRAW LANCING DEVICE Test twice a day LANCET DEVICES 27483181517 Active Baltazar Childers MD Active TRUETRACK TEST IN VITRO STRIP Test twice a day GLUCOSE BLOOD 28875037947 Active KENDALL Juarez Active TRUETRACK BLOOD GLUCOSE w/Device KIT Test twice a day BLOOD GLUCOSE MONITORING SUPPL 98443927482 Active Baltazar Childers MD Activ e HYDROCODONE-ACETAMINOPHEN 7.5-325 MG ORAL TABLET Take 1 tab every 6-8 hours PRN HYDROCODONE-ACETAMINOPHEN 99050987075 Active Baltazar Nickerson MD Active NORTRIPTYLINE HCL 50 MG ORAL CAPSULE 1 every night for neuropathy 2 NORTRIPTYLINE HCL 97031940449 Active Baltazar Childers MD Acti ve GABAPENTIN 300 MG ORAL CAPSULE 1 po qd x 2 days, then 1 po BID x 2 days, then 1 po TID GABAPENTIN 21483976826 No Longer Active Baltazar hCilders MD Active TRAMADOL HCL 50 MG ORAL TABLET 1 twice a day as needed for pain 201 07/27/28 TRAMADOL HCL 88477374971 Active Baltazar Childers MD Active NAPROXEN 500 MG ORAL TABLET 1 tablet by mouth twice daily NAPROXEN 56407430363 No Longer Active Baltazar Childers MD Active PROAIR HFA 108 (90 Base) MCG/ACT INHALATION AEROSOL SO LUTION 2 puffs four times a day as needed ALBUTEROL SULFATE 79687439367 Active KENDALL Bowie Active DEPO-TESTOSTERONE 200 MG/ML INTRAMUSCULAR SOLUTION as directed TESTOSTERONE CYPIONATE 94293490990 No Longer Active Baltazar Childers MD Active LIPITOR 20 MG ORAL TABLET Take one by mouth daily in evening ATORVASTATIN CALCIUM 60666024117 No Longer Active Baltazar Childers MD Active CRESTOR 10 MG ORAL TABLET 1 by mouth every day ROSUVASTATIN CALCIUM 81120330638 No Longer Active Balatzar Childers MD Active PHENTERMINE HCL 37.5 MG ORAL TABLET Take one by mouth daily PHENTERMINE HCL 86323071119 No Longer Active Baltazar Childers MD Ac tive ROBAXIN-750 750 MG ORAL TABLET Take one by mouth daily METHOCARBAMOL 86146904864 Active Baltazar Childers MD Active TIZANIDINE HCL 4 MG ORAL TABLET 1 daily as needed for muscle spa sm TIZANIDINE HCL 39644790984 No Longer Active Dawna Salazar RN Active [id number] 50-325-40 MG ORAL TABLET 1 fo ur times a day as needed for heacache [id number] 85309040718 Active Baltazar Childers MD Active SUMATRIPTAN SUCCINATE 100 MG ORAL TABLET 1 tablet by m out at onset of migraine as needed SUMATRIPTAN SUCCINATE 84295621431 Active KENDALL Restrepo Active LORATADINE 10 MG ORAL TABLET Take one by mouth daily LORATADINE 44026513367 Active Baltazar Childers MD Active OMEPRAZOLE 20 MG ORAL CAPSULE DELAYED RELEASE Take one by mouth jostin ly OMEPRAZOLE 53925343724 Active Baltazar Childers MD Active HYDROXYZINE HCL 25 MG ORAL TABLET Take one by mouth daily HYDROXYZINE HCL 13972163985 Active KENDALL Juarez Active ALPRAZOLAM 1 MG ORAL TABLET 1 [facility] ALPR[facility]AM 40574410177 Active Baltazar Childers MD Active METFORMIN HCL 1000 MG ORAL TABLET Take one by mouth twice daily METFORMIN HCL 77510368843 Active Baltazar Childers MD Active TIZANIDINE HCL 4 MG ORAL TABLET 1 daily as needed for muscle spa sm TIZANIDINE HCL 4 MG ORAL TABLET 992673 TIZANIDINE HCL Inactive PHENTERMINE HCL 37.5 MG ORAL TABLET Take one by mouth daily PHENTERMINE HCL 37.5 MG ORAL TABLET 086613 PHENTERMINE HCL Inac tive CRESTOR 10 MG ORAL TABLET 1 by mouth every day CRESTOR 10 MG ORAL TABLET 306400 ROSUVASTATIN CALCIUM Inactive LIPITOR 20 MG ORAL TABLET Take one by mouth daily in evening LIPITOR 20 MG ORAL TABLET 698690 ATORVASTATIN CALCIUM Inactive DEPO-TESTOSTERONE 200 MG/ML INTRAMUSCULAR SOLUTION as directed DEPO-TESTOSTERONE 200 MG/ML INTRAMUSCULAR SOLUTION 541067 RUFINO TOSTERONE CYPIONATE Inactive NAPROXEN 500 MG ORAL TABLET 1 tablet by mouth twice daily NAPROXEN 500 MG ORAL TABLET 545336 NAPROXEN Inactive GABAPENTIN 300 MG ORAL CAPSULE 1 po qd x 2 days, then 1 po BID x 2 days, then 1 po TID GABAPENTIN 300 MG ORAL CAPSULE 564415 GABAP ENTIN Inactive ONETOUCH ULTRA BLUE IN VITRO STRIP Test twice a day 07/11/11 ONETOUCH ULTRA BLUE IN VITRO STRIP GLUCOSE BLOOD Inact amie NAPROXEN SODIUM 220 MG ORAL TABLET 1 three times a day as needed NAPROXEN SODIUM 220 MG ORAL TABLET 599467 NAPROXEN SODI UM Inactive TOUJEO SOLOSTAR 300 UNIT/ML SUBCUTANEOUS SOLUTION PEN- INJECTOR 10 units SC daily TOUJEO SOLOSTAR 300 UNIT/ML SUBCUTANEOUS SOLUTION PEN-INJECTOR INSULIN GLARGINE Inactive SUCRALFATE 1 GM ORAL TABLET 1 four times a day to coat the stoma ch SUCRALFATE 1 GM ORAL TABLET 369816 SUCRALFATE Inac tive GABAPENTIN 300 MG ORAL CAPSULE 1 three times a day 201 12/03/26 GABAPENTIN 300 MG ORAL CAPSULE 202986 GABAPENTIN Inactive ZITHROMAX Z-ISAIAS 250 MG ORAL TABLET Take two tablets to day and then 1 tablet daily for 4 days ZITHROMAX Z-ISAIAS 250 MG ORAL TAB LET 798875 AZITHROMYCIN Inactive Immunizations Vaccine Administration Date Value Standard Floyd cription pneumococcal immunization administered Pneumovax 23 [CVX33] pneumococcal polysaccharide vaccine, 23 valent Seasonal influenza vaccine, injectable, containing preservative, for > 3 years old (Afluria, FluLaval, Fluzone, Fluvirin, Fluarix, Agriflu(>= 18 yo)) Fluzone (>3 yrs.) [EPQ129] Influenza, seasonal, inject able Seasonal influenza vaccine, injectable, containing preservative, for > 3 years old (Afluria, FluLaval, Fluzone, Fluvirin, Fluarix, Agriflu(>= 18 yo)) Fluzone (>3 yrs.) [NGA915] Influenza, seasonal, inject able Vital Signs Date [...] - Chem istry sodium, serum 139 mmol/L 501-122 2196/10/03 potassium, serum 4.7 mmol/L 3.5-5.2 chloride, serum 98 mmol/L 98-107 carbon dioxide, venous blood 28.7 mmol/L 21.0-32 .0 blood glucose 218 mg/dL 65-110 calcium, serum 9.8 mg/dL 8.5-10.1 urea nitrogen, blood 19 mg/dL 7-18 creatinine, serum 1.68 mg/dL 0.60-1.30 Lab Report: Basic Metabolic Panel, HGBA1 C - Chemistry sodium, serum 143 mmol/L 058-015 3785/06/19 potassium, serum 5.9 mmol/L 3.5-5.2 chloride, serum 105 mmol/L 98-107 carbon dioxide, venous blood 30.2 mmol/L 21.0-32 .0 blood glucose 189 mg/dL 65-110 calcium, serum 9.7 mg/dL 8.5-10.1 urea nitrogen, blood 37 mg/dL 7-18 creatinine, serum 2.11 mg/dL 0.55-1.30 hemoglobin A1C, blood, as % of total hemoglobin 8.2 % 4.3-6.0 Lab Report: CBC, Renal Panel - Chemistry sodium, serum 142 mmol/L 704-295 1660/08/11 potassium, serum 4.8 mmol/L 3.5-5.2 chloride, serum [...] (L) - Chemistry cholesterol, serum 209 mg/dL 704-810 2622/12/27 triglyceride, serum, fasting 329 mg/dL 30-200 HDL cholesterol, serum 56 mg/dL 32-60 LDL cholesterol, serum 87 mg/dL 0-130 TSH 3.60 m[iU]/mL 0.36-3.74 Encounters Code Encounter Date Provider Facility CPT-88489 Level 4 Est. Patient 16:21:19 BLOCK MACHINE OPERATOR Baltazar Childers MD [facility] CPT-14455 Level 4 Est. Patient 12:25:11 CDT Baltazar Childers MD [facility]-19931 Level 4 Est. Patient 14:22:31 CDT Baltazar Childers MD [facility]-29813 Level 4 Est. Patient 15:44:38 CDT Shonna Parker APRN [facility]-15311 Level 4 Est. Patient 11:34:17 CDT Baltazar Childers MD [facility]-87070 Level 3 Est. Patient 16:40:40 CDT Baltazar Childers MD [facility]-02512 Level 4 Est. Patient 10:41:24 CDT Baltazar Childers MD [facility]-09719 Level 4 Est. Patient 16:01:48 CDT Baltazar Childers MD [facility]-09494 Level 4 Est. Patient 16:54:07 BLOCK MACHINE OPERATOR Baltazar Childers MD [facility]04406 Level 4 Est. Patient 15:42:12 CDT Baltazar Childers MD [facility] CPT-29917 Level 4 Est. Patient 11:29:55 CDT Baltazar Childers MD [facility]-30440 Level 4 Est. Patient 14:15:19 CDT Baltazar Childers MD [facility]-88516 Level 4 Est. Patient 12:20:13 CDT Baltazar Childers MD [facility]-10300 Level 4 Est. Patient 14:52:45 BLOCK MACHINE OPERATOR Baltazar Childers MD [facility]-57007 Level 4 Est. Patient 14:18:34 BLOCK MACHINE OPERATOR Baltazar Childers MD [facility]-12253 Level 4 Est. Patient 15:18:29 CDT Baltazar Childers MD [facility]-28707 Level 3 Est. Patient 12:45:34 CDT Baltazar Childers MD [facility] CPT-14208 Level 3 Est. Patient 10:10:11 CDT Baltazar Childers MD [facility] CPT-79932 Level 3 Est. Patient 14:07:50 CDT Baltazar Childers MD [facility] CPT-00878 Level 4 Est. Patient 12:26:10 BLOCK MACHINE OPERATOR Baltazar Childers MD [facility] CPT-29334 Level 4 Est. Patient 14:45:38 CDT Baltazar Childers MD [facility] CPT-33460 Level 4 New Patient 12:30:48 CDT Baltazar hinton MD [facility] Procedures Code Procedure Name Date Entry Date Standard Desc ription CPT-54669 First Vx - Ix admin via ID I M or jet injects without counseling by physician 13:08:59 CDT CPT-20155 Fluzone Quadrivalent Intramuscular Suspe nsion 0.5 ML 13:08:59 CDT CPT-58260 Venipuncture Draw Fee 12:04:12 CDT CPT-33472 Lipid - LAB USE ONLY 17:39:15 BLOCK MACHINE OPERATOR 9 CPT-48071 HGBA1C - LAB USE ONLY 17:39:15 BLOCK MACHINE OPERATOR CPT-22281 CMP - LAB USE ONLY 17:39:14 BLOCK MACHINE OPERATOR CPT-35349 Venipuncture Draw Fee 17:39:14 BLOCK MACHINE OPERATOR CPT-21326 First Vx - Ix admin via ID I M or jet injects without counseling by physician 16:55:17 BLOCK MACHINE OPERATOR CPT-47345 Fluzone Quadrivalent Intramuscular Suspe nsion 0.5 ML 16:55:17 BLOCK MACHINE OPERATOR CPT-35459 Renal Panel - LAB USE ONLY 17:39:20 CDT 201 10/31/07 CPT-02506 CBC - LAB USE ONLY 17:39:20 CDT CPT-46755 Venipuncture Draw Fee 17:39:20 CDT CPT-79746 Venipuncture Draw Fee 14:33:30 CDT CPT-08920 Renal Panel - LAB USE ONLY 14:33:30 CDT 201 10/31/07 CPT-82550 CBC - LAB USE ONLY 14:33:29 CDT CPT-12977 Venipuncture Draw Fee 14:50:21 BLOCK MACHINE OPERATOR CPT-88711 Immunization Single Admin 17:35:35 CDT 2014 CPT-32028 Fluzone Quadrivalent preservative free ( >=3yrs.) 17:35:35 CDT CPT-27847 Venipuncture Draw Fee 12:10:27 BLOCK MACHINE OPERATOR CPT-86513 Fluzone Quadrivalent Intramuscular Suspe nsion 0.5 ML 10:49:13 CDT CPT-37583 First Vx Component - Ix admi n via ID IM or jet inj without physician counseling 15:17:19 BLOCK MACHINE OPERATOR CPT-91071 Pneumovax 23 15:17:19 BLOCK MACHINE OPERATOR CPT-36855 Pneumovax 14:52:45 BLOCK MACHINE OPERATOR CPT-47194 Venipuncture Draw Fee 14:06:30 BLOCK MACHINE OPERATOR CPT-000 Give Appropriate Flu Vaccine 14:18:34 BLOCK MACHINE OPERATOR 2 CPT-41510 Administration single or combination vac cine inc oral 14:46:00 BLOCK MACHINE OPERATOR CPT-11784 Influenza split virus > age 3 14:46:00 BLOCK MACHINE OPERATOR CPT-OV Office Visit 19:13:16 CDT CPT-98552 Zostavax 18:41:56 CDT CPT-99759 Administration single or combination vac cine inc oral 12:56:39 CDT CPT-56440 Zoster Vaccine (Zostavax) 12:56:39 CDT 2012 CPT-01342 Venipuncture Draw Fee 10:58:57 CDT CPT-39849 Sono pelvis non OB uterus ovaries cervix 17:45:04 CDT CPT-45721 Sono retroperitoneal complete kidneys an d bladder 17:14:36 CDT CPT-OV Office Visit 14:59:38 BLOCK MACHINE OPERATOR CPT-J1070 Depo Testosterone 100 mg 14:50:13 CDT 03/05 CPT-02543 Abx/Therapy Injection 14:50:13 CDT CPT-34286 Administration single or combination vac cine inc oral 14:34:43 CDT CPT-78449 Influenza split virus > age 3 14:34:43 CDT CPT-J1070 Depo Testosterone 100 mg 17:37:13 CDT 01/11 CPT-06782 Abx/Therapy Injection 17:37:13 CDT CPT-68475 Venipuncture Draw Fee 16:30:13 CDT CPT-30241 Venipuncture Draw Fee 16:29:43 CDT CPT-J1070 Depo Testosterone 100 mg 14:45:38 CDT 01/11
--- OUTSIDE RECORDS SUMMARY | 2019-10-27 12:27 | XMS REPORT | Clinical Summary ---
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 Benign neoplasm of colon PERIPHERAL NEUROPATHY [...] ronary atherosclerosis of unspecified type of vessel, [place] or graft OTH NONSPC ABN FINDNG RAD&OTH [...] Generic Name NDC Status Provider Patient Instruction TOUJEO SOLOSTAR 300 UNIT/ML SC SOPN 10 units SC daily INSULIN GLARGINE [id number] No Longer Active Martita ARGUETA Active LANTUS SOLOSTAR 100 UNIT/ML SC SOPN 10 units SC daily INSULIN GLARGINE 15055033317 Active Martita ARGUETA Active NAPROXEN SODIUM 220 MG ORAL TABS 1 three times a day as needed 2 NAPROXEN SODIUM 91825098478 No Longer Active Baltazar Childers MD Active ATORVASTATIN CALCIUM 20 MG ORAL TABS Take 1 tab daily ATORVASTATIN CALCIUM 10887853211 Active Beth Carr, RMA Active FUROSEMIDE 40 MG TABS Take one by mouth daily FUROSEMIDE 14863747725 Active Baltazar Childers MD Active LISINOPRIL 20 MG TABS Take one by mouth daily at bedtime LISINOPRIL 64974433933 Active Baltazar Childers MD Active ONETOUCH ULTRA BLUE STRP Test twice a day GLUCO SE BLOOD 25476841580 No Longer Active Baltazar Childers MD Active TRUEPLUS LANCETS 33G MISC Test twice a day LANCET S 11542016708 Active KENDALL Juarez Active TRUEDRAW LANCING DEVICE MISC Test twice a day L ANCET DEVICES 48239489152 Active Baltazar Childers MD Active TRUETRACK TEST STRP Test twice a day GLUCOSE BLOO D 89958927534 Active KENDALL Juarez Active TRUETRACK BLOOD GLUCOSE W/DEVICE KIT Test twice a day BLOOD GLUCOSE MONITORING SUPPL 72031895903 Active Baltazar Childers MD Activ e HYDROCODONE-ACETAMINOPHEN 7.5-325 MG TABS Take 1 tab every 6-8 hour s PRN HYDROCODONE-ACETAMINOPHEN 50408478067 Active Baltazar Childers MD Active NORTRIPTYLINE HCL 50 MG CAPS 1 every night for neuropathy 4 NORTRIPTYLINE HCL 19873923361 Active Baltazar Childers MD Acti ve GABAPENTIN 300 MG CAPS 1 three times a day GABAPE NTIN 31497224955 Active Baltazar Childers MD Active GABAPENTIN 300 MG CAPS 1 po qd x 2 days, then 1 po BID x 2 d ays, then 1 po TID GABAPENTIN 00732942352 No Longer Active Baltazar silverman MD Active TRAMADOL HCL 50 MG TABS 1 twice a day as needed for pain TRAMADOL HCL 86008891544 Active Baltazar Childers MD Active NAPROXEN 500 MG TABS 1 tablet by mouth twice daily NAPROXEN 26888016188 No Longer Active Baltazar Childers MD Active PROAIR HFA 108 (90 BASE) MCG/ACT AERS 2 puffs four times a d ay as needed ALBUTEROL SULFATE 99218836489 Active KENDALL Juarez Active DEPO-TESTOSTERONE 200 MG/ML OIL as directed RUFINO TOSTERONE CYPIONATE 32861078797 No Longer Active Baltazar Childers MD Active LIPITOR 20 MG TABS Take one by mouth daily in evening ATORVASTATIN CALCIUM 71031978133 No Longer Active Baltazar Childers MD Activ e CRESTOR 10 MG TABS 1 by mouth every day R OSUVASTATIN CALCIUM 58554615818 No Longer Active Baltazar Childers MD Activ e PHENTERMINE HCL 37.5 MG TABS Take one by mouth daily 2 PHENTERMINE HCL 54094811064 No Longer Active Baltazar Childers MD Activ e ROBAXIN-750 750 MG TABS Take one by mouth daily ME THOCARBAMOL 11240351695 Active Baltazar Childers MD Active TIZANIDINE HCL 4 MG TABS 1 daily as needed for muscle spasm 2011 TIZANIDINE HCL 61166955145 No Longer Active Dawna Salazar RN Active [id number] 50-325-40 MG TABS 1 four time s a day as needed for heacache [id number] 56284135639 Active Baltazar Childers MD Active SUMATRIPTAN SUCCINATE 100 MG TABS 1 tablet by mouth at onset of migraine as needed SUMATRIPTAN SUCCINATE 02998019490 Active Beth Carr [facility] Active LORATADINE 10 MG TABS Take one by mouth daily LORATADINE 56685139022 Active Baltazar Childers MD Active OMEPRAZOLE 20 MG CPDR Take one by mouth daily OMEPRAZOLE 03641333885 Active [place] Fitzgeralder Active HYDROXYZINE HCL 25 MG TABS Take one by mouth daily HYDROXYZINE HCL 63682492994 Active Baltazar Childers MD Active GLIPIZIDE 10 MG TABS 1 tablet by mouth twice daily GLIPIZIDE 52377302401 Active Baltazar Childers MD Active ALPRAZOLAM 1 MG TABS 1 tablet by mouth daily at bedtime for restles s leg ALPRAZOLAM 44236078379 Active Baltazar Childers MD Active METFORMIN HCL 1000 MG TABS Take one by mouth twice daily METFORMIN HCL 99967850380 Active Baltazar Childers MD Active TIZANIDINE HCL 4 MG TABS 1 daily as needed for muscle spasm 2011 TIZANIDINE HCL 4 MG TABS 262673 TIZANIDINE HCL Inactiv e PHENTERMINE HCL 37.5 MG TABS Take one by mouth daily 2 PHENTERMINE HCL 37.5 MG TABS 822274 PHENTERMINE HCL Inactive CRESTOR 10 MG TABS 1 by mouth every day C RESTOR 10 MG TABS 640109 ROSUVASTATIN CALCIUM Inactive LIPITOR 20 MG TABS Take one by mouth daily in evening LIPITOR 20 MG TABS 680495 ATORVASTATIN CALCIUM Inactive DEPO-TESTOSTERONE 200 MG/ML OIL as directed 8 DEPO-TESTOSTERONE 200 MG/ML OIL 483293 TESTOSTERONE CYPIONATE Inactive NAPROXEN 500 MG TABS 1 tablet by mouth twice daily 201 07/27/22 NAPROXEN 500 MG TABS 391052 NAPROXEN Inactive GABAPENTIN 300 MG CAPS 1 po qd x 2 days, then 1 po BID x 2 d ays, then 1 po TID GABAPENTIN 300 MG CAPS 781788 GABAPENTIN Inact amie ONETOUCH ULTRA BLUE STRP Test twice a day ONETOUCH ULTRA BLUE STRP GLUCOSE BLOOD Inactive NAPROXEN SODIUM 220 MG ORAL TABS 1 three times a day as needed 2 NAPROXEN SODIUM 220 MG ORAL TABS 107390 NAPROXEN SODIUM Inactive TOUJEO SOLOSTAR 300 UNIT/ML [...] Fluarix, Agriflu(>= 18 yo)) Fluzone (>3 yrs.) [[id number]] Influenza, seasonal, inject able Seasonal influenza vaccine, injectable, containing preservative, for > 3 years old (Afluria, FluLaval, Fluzone, Fluvirin, Fluarix, Agriflu(>= 18 yo)) Fluzone (>3 yrs.) [[id number]] Influenza, seasonal, inject able Vital Signs Date [...] Basic Metabolic Panel, HGBA1 C - Chemistry potassium, serum 4.5 mmol/L 3.5-5.2 chloride, serum 99 mmol/L 98-107 carbon dioxide, venous blood 33.8 mmol/L 21.0-32 .0 blood glucose 209 mg/dL 65-110 calcium, serum 9.8 mg/dL 8.5-10.1 urea nitrogen, blood 14 mg/dL 7-18 creatinine, serum 1.89 mg/dL 0.55-1.30 hemoglobin A1C, blood, as % of total hemoglobin 8.3 % 4.3-6.0 sodium, serum 139 mmol/L 136-145 Lab Report: CBC, HGBA1C, Renal Panel - C hemistry hemoglobin A1C, blood, as % of total hemoglobin 7.9 % 4.3-6.0 sodium, serum 139 mmol/L 342-981 1970/02/04 potassium, serum 5.4 mmol/L 3.5-5.2 chloride, serum [...] 0.40 mg/dL 0.00-1.00 cholesterol, serum 405 mg/dL 504-532 1671/11/23 triglyceride, serum, fasting 709 mg/dL 30-200 HDL [...] mg/dL Encounters Code Encounter Date Provider Facility CPT-56486 Level 3 Est. Patient 16:40:40 CDT Baltazar Childers MD [facility] CPT-77164 Level 4 Est. Patient 10:41:24 CDT Baltazar Childers MD [facility] CPT-37252 Level 4 Est. Patient 16:01:48 CDT Baltazar Childers MD [facility] CPT-54577 Level 4 Est. Patient 16:54:07 OUTBOARD MOTOR TESTER Baltazar Childers MD [facility] CPT-53516 Level 4 Est. Patient 15:42:12 CDT [facility]ta[facility] CPT-39025 Level 4 Est. Patient 11:29:55 CDT Baltazar Childers MD [facility] CPT-49095 Level 4 Est. Patient 14:15:19 CDT Baltazar Childers MD [facility] CPT-03770 Level 4 Est. Patient 12:20:13 CDT Baltazar Childers MD [facility] CPT-28195 Level 4 Est. Patient 14:52:45 OUTBOARD MOTOR TESTER Baltazar Childers MD [facility] CPT-49105 Level 4 Est. Patient 14:18:34 OUTBOARD MOTOR TE[employer] Baltazar Childers MD [facility] CPT-84679 Level 4 Est. Patient 15:18:29 CDT Baltazar Childers MD [facility] CPT-32219 Level 3 Est. Patient 12:45:34 CDT Baltazar Childers MD [facility] CPT-08210 Level 3 Est. Patient 10:10:11 CDT Baltazar Childers MD [facility] CPT-97562 Level 3 Est. Patient 14:07:50 CDT Baltazar Childers MD [facility] CPT-96115 Level 4 Est. Patient 12:26:10 OUTBOARD MOTOR TESTER Baltazar Childers MD [facility] CPT-77684 Level 4 Est. Patient 14:45:38 CDT Baltazar Childers MD [facility] CPT-43259 Level 4 New Patient 12:30:48 CDT Baltazar hinton MD [facility] Procedures Code Procedure Name Date Entry Date Standard Desc ription CPT-34531 Venipuncture Draw Fee 14:50:21 OUTBOARD MOTOR TE[employer] CPT-27231 Immunization Single Admin 17:35:35 CDT 2014 CPT-12516 Fluzone Quadrivalent preservative free ( >=3yrs.) 17:35:35 CDT CPT-63911 Venipuncture Draw Fee 12:10:27 OUTBOARD MOTOR TESTER CPT-57592 Fluzone Quadrivalent Intramuscular Suspe nsion 0.5 ML 10:49:13 CDT CPT-23202 First Vx Component - Ix admi n via ID IM or jet inj without physician counseling 15:17:19 OUTBOARD MOTOR TE[employer] CPT-34697 Pneumovax 23 15:17:19 OUTBOARD MOTOR TE[employer] CPT-02878 Pneumovax 14:52:45 OUTBOARD MOTOR TE[employer] CPT-66277 Venipuncture Draw Fee 14:06:30 OUTBOARD MOTOR TESTER CPT-000 Give Appropriate Flu Vaccine 14:18:34 OUTBOARD MOTOR TESTER 2 CPT-38154 Administration single or combination vac cine inc oral 14:46:00 OUTBOARD MOTOR TESTER CPT-59118 Influenza split virus > age 3 14:46:00 OUTBOARD MOTOR TESTER CPT-OV Office Visit 19:13:16 CDT CPT-96699 Zostavax 18:41:56 CDT CPT-46795 Administration single or combination vac cine inc oral 12:56:39 CDT CPT-96512 Zoster Vaccine (Zostavax) 12:56:39 CDT 2012 CPT-88089 Venipuncture Draw Fee 10:58:57 CDT CPT-95827 Sono pelvis non OB uterus ovaries cervix 17:45:04 CDT CPT-23835 Sono retroperitoneal complete kidneys an d bladder 17:14:36 CDT CPT-OV Office Visit 14:59:38 OUTBOARD MOTOR TE[employer] CPT-J1070 Depo Testosterone 100 mg 14:50:13 CDT 03/05 CPT-71988 Abx/Therapy Injection 14:50:13 CDT CPT-56364 Administration single or combination vac cine inc oral 14:34:43 CDT CPT-21951 Influenza split virus > age 3 14:34:43 CDT CPT-J1070 Depo Testosterone 100 mg 17:37:13 CDT 01/11 CPT-63849 Abx/Therapy Injection 17:37:13 CDT CPT-00583 Venipuncture Draw Fee 16:30:13 CDT CPT-70333 Venipuncture Draw Fee 16:29:43 CDT CPT-J1070 Depo Testosterone 100 mg 14:45:38 CDT 01/11
--- OUTSIDE RECORDS SUMMARY | 2019-10-27 12:27 | XMS REPORT | Clinical Summary ---
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 Benign neoplasm of colon PERIPHERAL NEUROPATHY [...] kidney and ureter CAD 414.00 Active [facility] ronary atherosclerosis of unspecified type of vessel, [place] or graft OTH NONSPC ABN FINDNG RAD&OTH [...] a day to coat the stomach SUCRALFATE 88680407020 Active Baltazar Childers MD Active PEN NEEDLES 31G X 6 MM MISC use 1 daily INSULIN PEN NEEDLE 93355735721 Active Martita Herbert RMA Active TOUJEO SOLOSTAR 300 UNIT/ML SC SOPN 10 units SC daily INSULIN GLARGINE 46826138311 No Longer Active Martita Herbert RMA Active LANTUS SOLOSTAR 100 UNIT/ML SC SOPN 10 units SC daily INSULIN GLARGINE 45374684220 Active KENDALL Juarez Active NAPROXEN SODIUM 220 MG ORAL TABS 1 three times a day as needed 2 NAPROXEN SODIUM 80612913581 No Longer Active Baltazar Childers MD Active ATORVASTATIN CALCIUM 20 MG ORAL TABS Take 1 tab daily ATORVASTATIN CALCIUM 65132931028 Active Baltazar Childers MD Active FUROSEMIDE 40 MG TABS Take one by mouth daily FUROSEMIDE 08988317843 Active Baltazar Childers MD Active LISINOPRIL 20 MG TABS Take one by mouth daily at bedtime LISINOPRIL 88406147019 Active Baltazar Childers MD Active ONETOUCH ULTRA BLUE STRP Test twice a day GLUCO SE BLOOD 07984956153 No Longer Active Baltazar Childers MD Active TRUEPLUS LANCETS 33G MISC Test twice a day LANCET S 01098673265 Active KENDALL Juarez Active TRUEDRAW LANCING DEVICE MISC Test twice a day L ANCET DEVICES 30430385087 Active Baltazar Childers MD Active TRUETRACK TEST STRP Test twice a day GLUCOSE BLOO D 36708571525 Active KENDALL Juarez Active TRUETRACK BLOOD GLUCOSE W/DEVICE KIT Test twice a day BLOOD GLUCOSE MONITORING SUPPL 68414262526 Active Baltazar Childers MD Activ e HYDROCODONE-ACETAMINOPHEN 7.5-325 MG TABS Take 1 tab every 6-8 hour s PRN HYDROCODONE-ACETAMINOPHEN 48823287391 Active Baltazar Childers MD Active NORTRIPTYLINE HCL 50 MG CAPS 1 every night for neuropathy 4 NORTRIPTYLINE HCL 67453755923 Active Baltazar Childers MD Acti ve GABAPENTIN 300 MG CAPS 1 three times a day GABAPE NTIN 76127058784 Active Baltazar Childers MD Active GABAPENTIN 300 MG CAPS 1 po qd x 2 days, then 1 po BID x 2 d ays, then 1 po TID GABAPENTIN 02107045701 No Longer Active Baltazar silverman MD Active TRAMADOL HCL 50 MG TABS 1 twice a day as needed for pain TRAMADOL HCL 70629791614 Active Baltazar Childers MD Active NAPROXEN 500 MG TABS 1 tablet by mouth twice daily NAPROXEN 02315454321 No Longer Active Baltazar Childers MD Active PROAIR HFA 108 (90 BASE) MCG/ACT AERS 2 puffs four times a d ay as needed ALBUTEROL SULFATE 58419256836 Active Baltazar Childers MD Active DEPO-TESTOSTERONE 200 MG/ML OIL as directed RUFINO TOSTERONE CYPIONATE 62651822491 No Longer Active Baltazar Childers MD Active LIPITOR 20 MG TABS Take one by mouth daily in evening ATORVASTATIN CALCIUM 38226267143 No Longer Active Baltazar Childers MD Activ e CRESTOR 10 MG TABS 1 by mouth every day R OSUVASTATIN CALCIUM 54592010150 No Longer Active Baltazar Childers MD Activ e PHENTERMINE HCL 37.5 MG TABS Take one by mouth daily 2 PHENTERMINE HCL 95897242274 No Longer Active Baltazar Childers MD Activ e ROBAXIN-750 750 MG TABS Take one by mouth daily ME THOCARBAMOL 89250794561 Active Baltazar Childers MD Active TIZANIDINE HCL 4 MG TABS 1 daily as needed for muscle spasm 2011 TIZANIDINE HCL 57980559936 No Longer Active Dawna Salazar RN Active [id number] 50-325-40 MG TABS 1 four time s a day as needed for heacache [id number] 51335168662 Active Baltazar Childers MD Active SUMATRIPTAN SUCCINATE 100 MG TABS 1 tablet by mouth at onset of migraine as needed SUMATRIPTAN SUCCINATE 99213169893 Active KENDALL Juarez Active LORATADINE 10 MG TABS Take one by mouth daily LORATADINE 15064248736 Active Baltazar Childers MD Active OMEPRAZOLE 20 MG CPDR Take one by mouth daily OMEPRAZOLE 63700390372 Active Argentina Lyons Active HYDROXYZINE HCL 25 MG TABS Take one by mouth daily HYDROXYZINE HCL 85361180591 Active Baltazar Childers MD Active GLIPIZIDE 10 MG TABS 1 tablet by mouth twice daily GLIPIZIDE 44866182557 Active Baltazar Childers MD Active ALPRAZOLAM 1 MG TABS 1 tablet by mouth daily at bedtime for restles s leg ALPRAZOLAM 70203206234 Active Baltazar Childers MD Active METFORMIN HCL 1000 MG TABS Take one by mouth twice daily METFORMIN HCL 48982489360 Active Baltazar Childers MD Active TIZANIDINE HCL 4 MG TABS 1 daily as needed for muscle spasm 2011 TIZANIDINE HCL 4 MG TABS 258287 TIZANIDINE HCL Inactiv e PHENTERMINE HCL 37.5 MG TABS Take one by mouth daily 2 PHENTERMINE HCL 37.5 MG TABS 928847 PHENTERMINE HCL Inactive CRESTOR 10 MG TABS 1 by mouth every day C RESTOR 10 MG TABS 230075 ROSUVASTATIN CALCIUM Inactive LIPITOR 20 MG TABS Take one by mouth daily in evening LIPITOR 20 MG TABS 077361 ATORVASTATIN CALCIUM Inactive DEPO-TESTOSTERONE 200 MG/ML OIL as directed 8 DEPO-TESTOSTERONE 200 MG/ML OIL 467237 TESTOSTERONE CYPIONATE Inactive NAPROXEN 500 MG TABS 1 tablet by mouth twice daily 201 07/27/22 NAPROXEN 500 MG TABS 683094 NAPROXEN Inactive GABAPENTIN 300 MG CAPS 1 po qd x 2 days, then 1 po BID x 2 d ays, then 1 po TID GABAPENTIN 300 MG CAPS 888270 GABAPENTIN Inact amie ONETOUCH ULTRA BLUE STRP Test twice a day ONETOUCH ULTRA BLUE STRP GLUCOSE BLOOD Inactive NAPROXEN SODIUM 220 MG ORAL TABS 1 three times a day as needed 2 NAPROXEN SODIUM 220 MG ORAL TABS 704018 NAPROXEN SODIUM Inactive TOUJEO SOLOSTAR 300 UNIT/ML [...] Fluarix, Agriflu(>= 18 yo)) Fluzone (>3 yrs.) [[id number]] Influenza, seasonal, inject able Seasonal influenza vaccine, injectable, containing preservative, for > 3 years old (Afluria, FluLaval, Fluzone, Fluvirin, Fluarix, Agriflu(>= 18 yo)) Fluzone (>3 yrs.) [EQS721] Influenza, seasonal, inject able Vital Signs Date [...] C - Chemistry sodium, serum 139 mmol/L 829-169 0661/07/07 potassium, serum 4.5 mmol/L 3.5-5.2 chloride, serum [...] 7.9 % 4.3-6.0 sodium, serum 139 mmol/L 722-567 3636/02/04 potassium, serum 5.4 mmol/L 3.5-5.2 chloride, serum [...] Panel - Chemistry sodium, serum 138 mmol/L 982-293 7984/11/23 carbon dioxide, venous blood 32.4 mmol/L 21.0-32 .0 potassium, serum 5.7 mmol/L 3.5-5.2 chloride, serum 98 mmol/L 98-107 blood glucose 136 mg/dL 65-110 urea nitrogen, blood 18 mg/dL 7-18 creatinine, serum 1.71 mg/dL 0.55-1.30 alanine aminotransferase (SGPT), serum 71 U/L 12-78 aspartate aminotransferase (SGOT), serum 34 U/L 15-37 calcium, serum 9.4 mg/dL 8.5-10.1 bilirubin, serum, total 0.40 mg/dL 0.00-1.00 cholesterol, serum 405 mg/dL 054-743 7260/11/23 triglyceride, serum, fasting 709 mg/dL 30-200 HDL [...] Panel - Chemistry sodium, serum 141 mmol/L 578-711 1186/08/08 potassium, serum 4.9 mmol/L 3.5-5.2 chloride, serum [...] mg/dL Encounters Code Encounter Date Provider Facility CPT-54640 Level 4 Est. Patient 11:34:17 CDT Baltazar Childers MD [facility] CPT-46376 Level 3 Est. Patient 16:40:40 CDT Baltazar Childers MD [facility] CPT-27014 Level 4 Est. Patient 10:41:24 CDT Baltazar Childers MD [facility] CPT-19722 Level 4 Est. Patient 16:01:48 CDT Baltazar Childers MD [facility] CPT-16659 Level 4 Est. Patient 16:54:07 PAD CUTTER Baltazar Childers MD [facility] CPT-88392 Level 4 Est. Patient 15:42:12 CDT Baltazar Childers MD [facility] CPT-36656 Level 4 Est. Patient 11:29:55 CDT Baltazar Childers MD [facility] CPT-50251 Level 4 Est. Patient 14:15:19 CDT Baltazar Childers MD [facility] CPT-36161 Level 4 Est. Patient 12:20:13 CDT Baltazar Childers MD [facility] CPT-08407 Level 4 Est. Patient 14:52:45 PAD CUTTER Baltazar Childers MD [facility] CPT-15906 Level 4 Est. Patient 14:18:34 PAD CUTTER Baltazar Childers MD [facility] CPT-21636 Level 4 Est. Patient 15:18:29 CDT Baltazar Childers MD [facility] CPT-07603 Level 3 Est. Patient 12:45:34 CDT Baltazar Childers MD [facility] CPT-58066 Level 3 Est. Patient 10:10:11 CDT Baltazar Childers MD [facility] CPT-59194 Level 3 Est. Patient 14:07:50 CDT Baltazar Childers MD [facility] CPT-49105 Level 4 Est. Patient 12:26:10 PAD CUTTER Baltazar Childers MD [facility] CPT-95751 Level 4 Est. Patient 14:45:38 CDT Baltazar Childers MD [facility] CPT-58919 Level 4 New Patient 12:30:48 CDT Baltazar hinton MD [facility] Procedures Code Procedure Name Date Entry Date Standard Desc ription CPT-19989 Renal Panel - LAB USE ONLY 17:39:20 CDT 201 10/31/07 CPT-20589 CBC - LAB USE ONLY 17:39:20 CDT CPT-54942 Venipuncture Draw Fee 17:39:20 CDT CPT-54470 Venipuncture Draw Fee 14:33:30 CDT CPT-52133 Renal Panel - LAB USE ONLY 14:33:30 CDT 201 10/31/07 CPT-35440 CBC - LAB USE ONLY 14:33:29 CDT CPT-03062 Venipuncture Draw Fee 14:50:21 PAD CUTTER CPT-26038 Immunization Single Admin 17:35:35 CDT 2014 CPT-09066 Fluzone Quadrivalent preservative free ( >=3yrs.) 17:35:35 CDT CPT-59982 Venipuncture Draw Fee 12:10:27 PAD CUTTER CPT-51193 Fluzone Quadrivalent Intramuscular Suspe nsion 0.5 ML 10:49:13 CDT CPT-02027 First Vx Component - Ix admi n via ID IM or jet inj without physician counseling 15:17:19 PAD CUTTER CPT-87297 Pneumovax 15:17:19 PAD CUTTER CPT-77181 Pneumovax 14:52:45 PAD CUTTER CPT-78582 Venipuncture Draw Fee 14:06:30 PAD CUTTER CPT-000 Give Appropriate Flu Vaccine 14:18:34 PAD CUTTER 2 CPT-00873 Administration single or combination vac cine inc oral 14:46:00 PAD CUTTER CPT-74549 Influenza split virus > age 3 14:46:00 PAD CUTTER CPT-OV Office Visit 19:13:16 CDT CPT-28254 Zostavax 18:41:56 CDT CPT-50806 Administration single or combination vac cine inc oral 12:56:39 CDT CPT-34522 Zoster Vaccine (Zostavax) 12:56:39 CDT 2012 CPT-36748 Venipuncture Draw Fee 10:58:57 CDT CPT-99606 Sono pelvis non OB uterus ovaries cervix 17:45:04 CDT CPT-19852 Sono retroperitoneal complete kidneys an d bladder 17:14:36 CDT CPT-OV Office Visit 14:59:38 PAD CUTTER CPT-J1070 Depo Testosterone 100 mg 14:50:13 CDT 03/05 CPT-46342 Abx/Therapy Injection 14:50:13 CDT CPT-38086 Administration single or combination vac cine inc oral 14:34:43 CDT CPT-94617 Influenza split virus > age 3 14:34:43 CDT CPT-J1070 Depo Testosterone 100 mg 17:37:13 CDT 01/11 CPT-78003 Abx/Therapy Injection 17:37:13 CDT CPT-44950 Venipuncture Draw Fee 16:30:13 CDT CPT-41769 Venipuncture Draw Fee 16:29:43 CDT CPT-J1070 Depo Testosterone 100 mg 14:45:38 CDT 01/11
--- OUTSIDE RECORDS SUMMARY | 2019-10-27 12:28 | XMS REPORT | Clinical Summary ---
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 Benign neoplasm of colon PERIPHERAL NEUROPATHY 356.9 [...] ronary atherosclerosis of unspecified type of vessel, [place] or graft OTH NONSPC ABN FINDNG RAD&OTH [...] MISC Test twice a day LANCET S 05401270450 Active Baltazar Childers MD Active TRUEDRAW LANCING DEVICE MISC Test twice a day L ANCET DEVICES 82435943723 Active Baltazar Childers MD Active TRUETRACK TEST STRP Test twice a day GLUCOSE BLOO D 95542110815 Active Baltazar Childers MD Active TRUETRACK BLOOD GLUCOSE W/DEVICE KIT Test twice a day BLOOD GLUCOSE MONITORING SUPPL 87993399069 Active Bella Suarez [employer] SAL[employer] TEAMMATE Active HYDROCODONE-ACETAMINOPHEN 7.5-325 MG TABS Take 1 tab every 6-8 hour s PRN HYDROCODONE-ACETAMINOPHEN 09521731239 Active Baltazar Childers MD Active NORTRIPTYLINE HCL 50 MG CAPS 1 every night for neuropathy 4 NORTRIPTYLINE HCL 70666017108 Active Baltazar Childers MD Acti ve GABAPENTIN 300 MG CAPS 1 three times a day GABAPE NTIN 39573213803 Active Baltazar Childers MD Active GABAPENTIN 300 MG CAPS 1 po qd x 2 days, then 1 po BID x 2 d ays, then 1 po TID GABAPENTIN 10876168037 No Longer Active Baltazar silverman MD Active TRAMADOL HCL 50 MG TABS 1 twice a day as needed for pain TRAMADOL HCL 67851662492 Active Baltazar Childers MD Active NAPROXEN 500 MG TABS 1 tablet by mouth twice daily NAPROXEN 77016338433 No Longer Active Baltazar Childers MD Active PROAIR HFA 108 (90 BASE) MCG/ACT AERS 2 puffs four times a d ay as needed ALBUTEROL SULFATE 75351960978 Active Baltazar Childers MD Active DEPO-TESTOSTERONE 200 MG/ML OIL as directed RUFINO TOSTERONE CYPIONATE 52367641641 No Longer Active Baltazar Childers MD Active LIPITOR 20 MG TABS Take one by mouth daily in evening ATORVASTATIN CALCIUM 96259911582 No Longer Active Baltazar Childers MD Activ e CRESTOR 10 MG TABS 1 by mouth every day R OSUVASTATIN CALCIUM 71543206915 No Longer Active Baltazar Childers MD Activ e PHENTERMINE HCL 37.5 MG TABS Take one by mouth daily 2 PHENTERMINE HCL 87135739079 No Longer Active Baltazar Childers MD Activ e ROBAXIN-750 750 MG TABS Take one by mouth daily ME THOCARBAMOL 48215894133 Active Baltazar Childers MD Active TIZANIDINE HCL 4 MG TABS 1 daily as needed for muscle spasm 2011 TIZANIDINE HCL 76794441731 No Longer Active Dawna Salazar RN Active ONETOUCH ULTRA BLUE STRP Test twice a day GLUCO SE BLOOD 54875048857 Active Baltazar Childers MD Active [id number] 50-325-40 MG TABS 1 four time s a day as needed for heacache [id number] 74482917866 Active Baltazar Childers MD Active SUMATRIPTAN SUCCINATE 100 MG TABS 1 tablet by mouth at onset of migraine as needed SUMATRIPTAN SUCCINATE 85140968346 Active Baltazar barron MD Active LORATADINE 10 MG TABS Take one by mouth daily LORATADINE 20316175231 Active Baltazar Childers MD Active FUROSEMIDE 40 MG TABS Take one by mouth daily FUROSEMIDE 26054166807 Active Baltazar Childers MD Active LISINOPRIL 20 MG TABS Take one by mouth daily at bedtime LISINOPRIL 38641349515 Active Baltazar Chidlers MD Active OMEPRAZOLE 20 MG CPDR Take one by mouth daily OMEPRAZOLE 90888232744 Active Baltazar Childers MD Active HYDROXYZINE HCL 25 MG TABS Take one by mouth daily HYDROXYZINE HCL 96340514858 Active Baltazar Childers MD Active GLIPIZIDE 10 MG TABS 1 tablet by mouth twice daily GLIPIZIDE 71847274041 Active Baltazar Childers MD Active ALPRAZOLAM 1 MG TABS 1 tablet by mouth daily at bedtime for restles s leg ALPRAZOLAM 39404805052 Active Baltazar Childers MD Active METFORMIN HCL 1000 MG TABS Take one by mouth twice daily METFORMIN HCL 15418425872 Active Baltazar Childers MD Active TIZANIDINE HCL 4 MG TABS 1 daily as needed for muscle spasm 2011 TIZANIDINE HCL 4 MG TABS 666618 TIZANIDINE HCL Inactiv e PHENTERMINE HCL 37.5 MG TABS Take one by mouth daily 2 PHENTERMINE HCL 37.5 MG TABS 809274 PHENTERMINE HCL Inactive CRESTOR 10 MG TABS 1 by mouth every day C RESTOR 10 MG TABS ROSUVASTATIN CALCIUM Inactive LIPITOR 20 MG TABS Take one by mouth daily in evening LIPITOR 20 MG TABS 124173 ATORVASTATIN CALCIUM Inactive DEPO-TESTOSTERONE 200 MG/ML OIL as directed 8 DEPO-TESTOSTERONE 200 MG/ML OIL 972945 TESTOSTERONE CYPIONATE Inactive NAPROXEN 500 MG TABS 1 tablet by mouth twice daily 201 07/27/22 NAPROXEN 500 MG TABS 242318 NAPROXEN Inactive GABAPENTIN 300 MG CAPS 1 po qd x 2 days, then 1 po BID x 2 d ays, then 1 po TID GABAPENTIN 300 MG CAPS 937906 GABAPENTIN Inact amie Immunizations Vaccine Administration Date Value Standard Floyd cription pneumococcal immunization administered Pneumovax 23 [CVX33] pneumococcal polysaccharide vaccine, 23 valent Seasonal influenza vaccine, injectable, containing preservative, for > 3 years old (Afluria, FluLaval, Fluzone, Fluvirin, Fluarix, Agriflu(>= 18 yo)) Fluzone (>3 yrs.) [[id number]] Influenza, seasonal, inject able Seasonal influenza vaccine, injectable, containing preservative, for > 3 years old (Afluria, FluLaval, Fluzone, Fluvirin, Fluarix, Agriflu(>= 18 yo)) Fluzone (>3 yrs.) [[id number]] Influenza, seasonal, inject able Vital Signs Date [...] - Chem istry sodium, serum 140 mmol/L 852-577 8850/05/05 potassium, serum 4.9 mmol/L 3.5-5.2 chloride, serum [...] Panel - Chemistry sodium, serum 139 mmol/L 577-173 3433/01/20 potassium, serum 5.3 mmol/L 3.5-5.2 chloride, serum [...] mg/g mg/g{creat} 0-29 cholesterol, serum 319 mg/dL 104-330 8854/08/21 triglyceride, serum, fasting 546 mg/dL 30-200 HDL cholesterol, serum 39 mg/dL 32-96 LDL cholesterol, serum 167.00 mg/dL 5.00-130.00 hemoglobin A1C, blood, as % of total hemoglobin 7.7 % 4.3-6.0 sodium, serum 138 mmol/L 477-668 1142/08/21 potassium, serum 4.3 mmol/L 3.5-5.2 chloride, serum [...] 0-19 Encounters Code Encounter Date Provider Facility CPT-57770 Level 4 Est. Patient 11:29:55 CDT Baltazar Childers MD [facility] CPT-02785 Level 4 Est. Patient 14:15:19 CDT Baltazar Childers MD [facility] CPT-72647 Level 4 Est. Patient 12:20:13 CDT Baltazar Childers MD [facility] CPT-96672 Level 4 Est. Patient 14:52:45 [employer]ICE OFFICER Baltazar Childers MD [facility] CPT-65022 Level 4 Est. Patient 14:18:34 [employer] OFFICER Baltazar Childers MD [facility] CPT-86856 Level 4 Est. Patient 15:18:29 CDT Baltazar Childers MD [facility] CPT-22337 Level 3 Est. Patient 12:45:34 CDT Baltazar Childers MD [facility] CPT-09546 Level 3 Est. Patient 10:10:11 CDT Baltazar Chidlers MD [facility] CPT-41093 Level 3 Est. Patient 14:07:50 CDT Baltazar Childers MD [facility] CPT-62205 Level 4 Est. Patient 12:26:10 [employer] OFFICER Baltazar Childers MD [facility] CPT-39468 Level 4 Est. Patient 14:45:38 CDT Baltazar Childers MD [facility] CPT-72193 Level 4 New Patient 12:30:48 CDT Baltazar hinton MD [facility] Procedures Code Procedure Name Date Entry Date Standard Desc ription CPT-28060 Venipuncture Draw Fee 12:10:27 [employer] OFFICER CPT-21004 Fluzone Quadrivalent Intramuscular Suspe nsion 0.5 ML 10:49:13 CDT CPT-47569 First Vx Component - Ix admi n via ID IM or jet inj without physician counseling 15:17:19 [employer] OFFICER CPT-54083 Pneumovax 15:17:19 [employer] OFFICER CPT-20992 Pneumovax 14:52:45 [employer]ICE OFFICER CPT-18712 Venipuncture Draw Fee 14:06:30 [employer] OFFICER CPT-000 Give Appropriate Flu Vaccine 14:18:34 [employer]ICE OFFICER 2 CPT-35248 Administration single or combination vac cine inc oral 14:46:00 [employer] OFFICER CPT-05074 Influenza split virus > age 3 14:46:00 [employer]ICE OFFICER CPT-OV Office Visit 19:13:16 CDT CPT-80710 Zostavax 18:41:56 CDT CPT-72317 Administration single or combination vac cine inc oral 12:56:39 CDT CPT-66744 Zoster Vaccine (Zostavax) 12:56:39 CDT 2012 CPT-66789 Venipuncture Draw Fee 10:58:57 CDT CPT-70898 Sono pelvis non OB uterus ovaries cervix 17:45:04 CDT CPT-93190 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
--- OUTSIDE RECORDS SUMMARY | 2019-10-27 12:28 | XMS REPORT | Clinical Summary ---
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 Benign neoplasm of colon PERIPHERAL NEUROPATHY [...] ronary atherosclerosis of unspecified type of vessel, [place] or graft OTH NONSPC ABN FINDNG [...] a day as needed 2 NAPROXEN SODIUM 02507697039 No Longer Active Baltazar Childers MD Active ATORVASTATIN CALCIUM 20 MG ORAL TABS Take 1 tab daily ATORVASTATIN CALCIUM 12362156313 Active KENDALL Juarez Active FUROSEMIDE 40 MG TABS Take one by mouth daily FUROSEMIDE 58698699155 Active Baltazar Childers MD Active LISINOPRIL 20 MG TABS Take one by mouth daily at bedtime LISINOPRIL 39437696664 Active KENDALL Juarez Active ONETOUCH ULTRA BLUE STRP Test twice a day GLUCO SE BLOOD 27398140133 No Longer Active Baltazar Childers MD Active TRUEPLUS LANCETS 33G MISC Test twice a day LANCET S 60819141626 Active KENDALL Juarez Active TRUEDRAW LANCING DEVICE MISC Test twice a day L ANCET DEVICES 24736282566 Active Baltazar Childers MD Active TRUETRACK TEST STRP Test twice a day GLUCOSE BLOO D 72800081583 Active Baltazar Childers MD Active TRUETRACK BLOOD GLUCOSE W/DEVICE KIT Test twice a day BLOOD GLUCOSE MONITORING SUPPL 52634780985 Active Baltazar Childers MD Activ e HYDROCODONE-ACETAMINOPHEN 7.5-325 MG TABS Take 1 tab every 6-8 hour s PRN HYDROCODONE-ACETAMINOPHEN 35269911597 Active Baltazar Childers MD Active NORTRIPTYLINE HCL 50 MG CAPS 1 every night for neuropathy 4 NORTRIPTYLINE HCL 87929172938 Active Baltazar Childers MD Acti ve GABAPENTIN 300 MG CAPS 1 three times a day GABAPE NTIN 61274914771 Active KENDALL Juarez Active GABAPENTIN 300 MG CAPS 1 po qd x 2 days, then 1 po BID x 2 d ays, then 1 po TID GABAPENTIN 10436467253 No Longer Active Baltazar silverman MD Active TRAMADOL HCL 50 MG TABS 1 twice a day as needed for pain TRAMADOL HCL 47540328518 Active Baltazar Childers MD Active NAPROXEN 500 MG TABS 1 tablet by mouth twice daily NAPROXEN 10481791771 No Longer Active Baltazar Childers MD Active PROAIR HFA 108 (90 BASE) MCG/ACT AERS 2 puffs four times a d ay as needed ALBUTEROL SULFATE 14909647402 Active KENDALL Juarez Active DEPO-TESTOSTERONE 200 MG/ML OIL as directed RUFINO TOSTERONE CYPIONATE 59288230049 No Longer Active Baltazar Childers MD Active LIPITOR 20 MG TABS Take one by mouth daily in evening ATORVASTATIN CALCIUM 38602596634 No Longer Active Baltazar Childers MD Activ e CRESTOR 10 MG TABS 1 by mouth every day R OSUVASTATIN CALCIUM 12850903126 No Longer Active Baltazar Childers MD Activ e PHENTERMINE HCL 37.5 MG TABS Take one by mouth daily 2 PHENTERMINE HCL 60725201039 No Longer Active Baltazar Childers MD Activ e ROBAXIN-750 750 MG TABS Take one by mouth daily ME THOCARBAMOL 38923249861 Active Baltazar Childers MD Active TIZANIDINE HCL 4 MG TABS 1 daily as needed for muscle spasm 2011 TIZANIDINE HCL 24280930974 No Longer Active Dawna Salazar RN Active [id number] 50-325-40 MG TABS 1 four time s a day as needed for heacache [id number] 64126227782 Active KENDALL Juarez Active SUMATRIPTAN SUCCINATE 100 MG TABS 1 tablet by mouth at onset of migraine as needed SUMATRIPTAN SUCCINATE 59491112985 Active KENDALL Juarez Active LORATADINE 10 MG TABS Take one by mouth daily LORATADINE 94904253530 Active Baltazar Childers MD Active OMEPRAZOLE 20 MG CPDR Take one by mouth daily OMEPRAZOLE 12473024527 Active Baltazar Childers MD Active HYDROXYZINE HCL 25 MG TABS Take one by mouth daily HYDROXYZINE HCL 76046415221 Active Baltazar Childers MD Active GLIPIZIDE 10 MG TABS 1 tablet by mouth twice daily GLIPIZIDE 87848225974 Active KENDALL Juarez Active ALPRAZOLAM 1 MG TABS 1 tablet by mouth daily at bedtime for restles s leg ALPRAZOLAM 80416877882 Active Baltazar Childers MD Active METFORMIN HCL 1000 MG TABS Take one by mouth twice daily METFORMIN HCL 83030120758 Active Baltazar Childers MD Active TIZANIDINE HCL 4 MG TABS 1 daily as needed for muscle spasm 2011 TIZANIDINE HCL 4 MG TABS 265066 TIZANIDINE HCL Inactiv e PHENTERMINE HCL 37.5 MG TABS Take one by mouth daily 2 PHENTERMINE HCL 37.5 MG TABS 715035 PHENTERMINE HCL Inactive CRESTOR 10 MG TABS 1 by mouth every day C RESTOR 10 MG TABS ROSUVASTATIN CALCIUM Inactive LIPITOR 20 MG TABS Take one by mouth daily in evening LIPITOR 20 MG TABS 272271 ATORVASTATIN CALCIUM Inactive DEPO-TESTOSTERONE 200 MG/ML OIL as directed 8 DEPO-TESTOSTERONE 200 MG/ML OIL 246713 TESTOSTERONE CYPIONATE Inactive NAPROXEN 500 MG TABS 1 tablet by mouth twice daily 201 07/27/22 NAPROXEN 500 MG TABS 903715 NAPROXEN Inactive GABAPENTIN 300 MG CAPS 1 po qd x 2 days, then 1 po BID x 2 d ays, then 1 po TID GABAPENTIN 300 MG CAPS 568344 GABAPENTIN Inact amie ONETOUCH ULTRA BLUE STRP Test twice a day ONETOUCH ULTRA BLUE STRP GLUCOSE BLOOD Inactive NAPROXEN SODIUM 220 MG ORAL TABS 1 three times a day as needed 2 NAPROXEN SODIUM 220 MG ORAL TABS 620117 NAPROXEN SODIUM Inactive Immunizations Vaccine Administration Date Value Standard Floyd cription pneumococcal immunization administered Pneumovax 23 [CVX33] pneumococcal polysaccharide vaccine, 23 valent Seasonal influenza vaccine, injectable, containing preservative, for > 3 years old (Afluria, FluLaval, Fluzone, Fluvirin, Fluarix, Agriflu(>= 18 yo)) Fluzone (>3 yrs.) [[id number]] Influenza, seasonal, inject able Seasonal influenza vaccine, injectable, containing preservative, for > 3 years old (Afluria, FluLaval, Fluzone, Fluvirin, Fluarix, Agriflu(>= 18 yo)) Fluzone (>3 yrs.) [[id number]] Influenza, seasonal, inject able Vital Signs Date [...] 7.9 % 4.3-6.0 sodium, serum 139 mmol/L 281-584 1251/02/04 potassium, serum 5.4 mmol/L 3.5-5.2 chloride, serum [...] Panel, Lipid Panel - Chemistry blood glucose 136 mg/dL 65-110 urea nitrogen, blood 18 mg/dL 7-18 creatinine, serum 1.71 mg/dL 0.55-1.30 alanine aminotransferase (SGPT), serum 71 U/L 12-78 aspartate aminotransferase (SGOT), serum 34 U/L 15-37 calcium, serum 9.4 mg/dL 8.5-10.1 bilirubin, serum, total 0.40 mg/dL 0.00-1.00 cholesterol, serum 405 mg/dL 961-274 5621/11/23 triglyceride, serum, fasting 709 mg/dL 30-200 HDL cholesterol, serum 53 mg/dL 32-96 LDL cholesterol, serum 210 mg/dL 0-130 chloride, serum 98 mmol/L 98-107 potassium, serum [...] mg/dL Encounters Code Encounter Date Provider Facility CPT-53405 Level 4 Est. Patient 16:01:48 CDT [facility] CPT-27778 Level 4 Est. Patient 16:54:07 [employer] AIDE [facility] CPT-50800 Level 4 Est. Patient 15:42:12 CDT Baltazar Childers MD [facility] CPT-77063 Level 4 Est. Patient 11:29:55 CDT Baltazar Childers MD [facility] CPT-67813 Level 4 Est. Patient 14:15:19 CDT Baltazar Childers MD [facility] CPT-47003 Level 4 Est. Patient 12:20:13 CDT Baltazar Childers MD [facility] CPT-74419 Level 4 Est. Patient 14:52:45 [employer] AIDE Baltazar Childers MD [facility] CPT-80095 Level 4 Est. Patient 14:18:34 [employer] AIDE Baltazar Childers MD [facility] CPT-77179 Level 4 Est. Patient 15:18:29 CDT Baltazar Childers MD [facility] CPT-88702 Level 3 Est. Patient 12:45:34 CDT Baltazar Childers MD [facility] CPT-27226 Level 3 Est. Patient 10:10:11 CDT Baltazar Childers MD [facility] CPT-42678 Level 3 Est. Patient 14:07:50 CDT Baltazar Childers MD [facility] CPT-52434 Level 4 Est. Patient 12:26:10 [employer] AIDE Baltazar Childers MD [facility] CPT-28582 Level 4 Est. Patient 14:45:38 CDT Baltazar Childers MD [facility] CPT-80679 Level 4 New Patient 12:30:48 CDT Baltazar hinton MD [facility] Procedures Code Procedure Name Date Entry Date Standard Desc ription CPT-66189 Venipuncture Draw Fee 14:50:21 [employer] CPT-48058 Immunization Single Admin 17:35:35 CDT 2014 CPT-29187 Fluzone Quadrivalent preservative free ( >=3yrs.) 17:35:35 CDT CPT-00329 Venipuncture Draw Fee 12:10:27 [employer] AIDE CPT-79344 Fluzone Quadrivalent Intramuscular Suspe nsion 0.5 ML 10:49:13 CDT CPT-27503 First Vx Component - Ix admi n via ID IM or jet inj without physician counseling 15:17:19 [employer] AIDE CPT-23250 Pneumovax 15:17:19 [employer] AIDE CPT-29796 Pneumovax 14:52:45 [employer] AIDE CPT-88265 Venipuncture Draw Fee 14:06:30 [employer] AIDE CPT-000 Give Appropriate Flu Vaccine 14:18:34 [employer] AIDE 2 CPT-11798 Administration single or combination vac cine inc oral 14:46:00 [employer]ING AIDE CPT-73378 Influenza split virus > age 3 14:46:00 [employer] AIDE CPT-OV Office Visit 19:13:16 CDT CPT-59250 Zostavax 18:41:56 CDT CPT-80549 Administration single or combination vac cine inc oral 12:56:39 CDT CPT-93441 Zoster Vaccine (Zostavax) 12:56:39 CDT 2012 CPT-43396 Venipuncture Draw Fee 10:58:57 CDT CPT-66943 Sono pelvis non OB uterus ovaries cervix 17:45:04 CDT CPT-32518 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
--- OUTSIDE RECORDS SUMMARY | 2019-10-27 12:28 | XMS REPORT | Clinical Summary ---
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 Benign neoplasm of colon PERIPHERAL NEUROPATHY 356.9 [...] y atherosclerosis of unspecified type of vessel, ramah [...] MISC Test twice a day LANCET S 73764705346 Active Baltazar Childers MD Active TRUEDRAW LANCING DEVICE MISC Test twice a day L ANCET DEVICES 67647559363 Active Baltazar Childers MD Active TRUETRACK TEST STRP Test twice a day GLUCOSE BLOO D 46052863835 Active Baltazar Childers MD Active TRUETRACK BLOOD GLUCOSE W/DEVICE KIT Test twice a day BLOOD GLUCOSE MONITORING SUPPL 56985616849 Active Bella Suarez 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 DISHWASHER Active HYDROCODONE-ACETAMINOPHEN 7.5-325 MG TABS Take 1 tab every 6-8 hour s PRN HYDROCODONE-ACETAMINOPHEN 90327808784 Active Baltazar Childers MD Active NORTRIPTYLINE HCL 50 MG CAPS 1 every night for neuropathy 4 NORTRIPTYLINE HCL 09968893914 Active Baltazar Childers MD Acti ve GABAPENTIN 300 MG CAPS 1 three times a day GABAPE NTIN 04818000576 Active Baltazar Childers MD Active GABAPENTIN 300 MG CAPS 1 po qd x 2 days, then 1 po BID x 2 d ays, then 1 po TID GABAPENTIN 99255471629 No Longer Active Baltazar silverman MD Active TRAMADOL HCL 50 MG TABS 1 twice a day as needed for pain TRAMADOL HCL 75261202400 Active Baltazar Childers MD Active NAPROXEN 500 MG TABS 1 tablet by mouth twice daily NAPROXEN 72094017330 No Longer Active Baltazar Childers MD Active PROAIR HFA 108 (90 BASE) MCG/ACT AERS 2 puffs four times a d ay as needed ALBUTEROL SULFATE 44427401013 Active Baltazar Childers MD Active DEPO-TESTOSTERONE 200 MG/ML OIL as directed RUFINO TOSTERONE CYPIONATE 75531002774 No Longer Active Baltazar Childers MD Active LIPITOR 20 MG TABS Take one by mouth daily in evening ATORVASTATIN CALCIUM 75153422958 No Longer Active Baltazar Childers MD Activ e CRESTOR 10 MG TABS 1 by mouth every day R OSUVASTATIN CALCIUM 93641449019 No Longer Active Baltazar Childers MD Activ e PHENTERMINE HCL 37.5 MG TABS Take one by mouth daily 2 PHENTERMINE HCL 63558770952 No Longer Active Baltazar Childers MD Activ e ROBAXIN-750 750 MG TABS Take one by mouth daily ME THOCARBAMOL 57948613353 Active Baltazar Childers MD Active TIZANIDINE HCL 4 MG TABS 1 daily as needed for muscle spasm 2011 TIZANIDINE HCL 00536604838 No Longer Active Dawna Salazar RN Active GloNavTOUCH ULTRA BLUE STRP Test twice a day GLUCO SE BLOOD 79452088124 Active Baltazar Childers MD Active [id number] 50-325-40 MG TABS 1 four time s a day as needed for heacache [id number] 08407400198 Active Baltazar Childers MD Active SUMATRIPTAN SUCCINATE 100 MG TABS 1 tablet by mouth at onset of migraine as needed SUMATRIPTAN SUCCINATE 99277758340 Active Baltazar barron MD Active LORATADINE 10 MG TABS Take one by mouth daily LORATADINE 73198881990 Active Baltazar Childers MD Active FUROSEMIDE 40 MG TABS Take one by mouth daily FUROSEMIDE 03568501759 Active Baltazar Childers MD Active LISINOPRIL 20 MG TABS Take one by mouth daily at bedtime LISINOPRIL 54097296292 Active Baltazar Childers MD Active OMEPRAZOLE 20 MG CPDR Take one by mouth daily OMEPRAZOLE 82560885565 Active Baltazar Childers MD Active HYDROXYZINE HCL 25 MG TABS Take one by mouth daily HYDROXYZINE HCL 75805573426 Active Baltazar Childers MD Active GLIPIZIDE 10 MG TABS 1 tablet by mouth twice daily GLIPIZIDE 94943061319 Active Baltazar Childers MD Active ALPRAZOLAM 1 MG TABS 1 tablet by mouth daily at bedtime for restles s leg ALPRAZOLAM 45998673983 Active Baltazar Childers MD Active METFORMIN HCL 1000 MG TABS Take one by mouth twice daily METFORMIN HCL 37056242138 Active Baltazar Childers MD Active TIZANIDINE HCL 4 MG TABS 1 daily as needed for muscle spasm 2011 TIZANIDINE HCL 4 MG TABS 338411 TIZANIDINE HCL Inactiv e PHENTERMINE HCL 37.5 MG TABS Take one by mouth daily 2 PHENTERMINE HCL 37.5 MG TABS 735102 PHENTERMINE HCL Inactive CRESTOR 10 MG TABS 1 by mouth every day C RESTOR 10 MG TABS ROSUVASTATIN CALCIUM Inactive LIPITOR 20 MG TABS Take one by mouth daily in evening LIPITOR 20 MG TABS 452282 ATORVASTATIN CALCIUM Inactive DEPO-TESTOSTERONE 200 MG/ML OIL as directed 8 DEPO-TESTOSTERONE 200 MG/ML OIL 914839 TESTOSTERONE CYPIONATE Inactive NAPROXEN 500 MG TABS 1 tablet by mouth twice daily 201 07/27/22 NAPROXEN 500 MG TABS 111504 NAPROXEN Inactive GABAPENTIN 300 MG CAPS 1 po qd x 2 days, then 1 po BID x 2 d ays, then 1 po TID GABAPENTIN 300 MG CAPS 222348 GABAPENTIN Inact amie Immunizations Vaccine Administration Date Value Standard Floyd cription pneumococcal immunization administered Pneumovax 23 [CVX33] pneumococcal polysaccharide vaccine, 23 valent Seasonal influenza vaccine, injectable, containing preservative, for > 3 years old (Afluria, FluLaval, Fluzone, Fluvirin, Fluarix, Agriflu(>= 18 yo)) Fluzone (>3 yrs.) [[id number]] Influenza, seasonal, inject able Seasonal influenza vaccine, injectable, containing preservative, for > 3 years old (Afluria, FluLaval, Fluzone, Fluvirin, Fluarix, Agriflu(>= 18 yo)) Fluzone (>3 yrs.) [[id number]] Influenza, seasonal, inject able Vital Signs Date [...] - Chem istry sodium, serum 140 mmol/L 896-033 1657/05/05 potassium, serum 4.9 mmol/L 3.5-5.2 chloride, serum [...] Panel - Chemistry sodium, serum 139 mmol/L 915-889 3918/01/20 potassium, serum 5.3 mmol/L 3.5-5.2 chloride, serum [...] mg/g mg/g{creat} 0-29 cholesterol, serum 319 mg/dL 165-389 6819/08/21 triglyceride, serum, fasting 546 mg/dL 30-200 HDL cholesterol, serum 39 mg/dL 32-96 LDL cholesterol, serum 167.00 mg/dL 5.00-130.00 hemoglobin A1C, blood, as % of total hemoglobin 7.7 % 4.3-6.0 sodium, serum 138 mmol/L 984-049 4336/08/21 potassium, serum 4.3 mmol/L 3.5-5.2 chloride, serum [...] 0-19 Encounters Code Encounter Date Provider Facility CPT-39922 Level 4 Est. Patient 11:29:55 CDT Baltazar Childers MD [facility] CPT-55453 Level 4 Est. Patient 14:15:19 CDT Baltazar Childers MD [facility] CPT-52237 Level 4 Est. Patient 12:20:13 CDT Baltazar Childers MD [facility] CPT-86372 Level 4 Est. 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 Patient 15:18:29 CDT Baltazar Childers MD [facility] CPT-14941 Level 3 Est. Patient 12:45:34 CDT Baltazar Childers MD [facility] CPT-69798 Level 3 Est. Patient 10:10:11 CDT Baltazar Childers MD [facility] CPT-32455 Level 3 Est. Patient 14:07:50 CDT Baltazar Childers MD [facility] CPT-70798 Level 4 Est. Patient 12:26:10 CONCRETE STONE FABRICATING SUPERVISOR Baltazar Childers MD [facility] CPT-07215 Level 4 Est. Patient 14:45:38 CDT Baltazar Childers MD [facility] CPT-20543 Level 4 New Patient 12:30:48 CDT Baltazar hinton MD [facility] Procedures Code Procedure Name Date Entry Date Standard Desc ription CPT-39065 Venipuncture Draw Fee 12:10:27 CONCRETE [employer] FABRICATING SUPERVISOR CPT-92180 Fluzone Quadrivalent Intramuscular Suspe nsion 0.5 ML 10:49:13 CDT CPT-63681 First Vx Component - Ix admi n via ID IM or jet inj without physician counseling 15:17:19 CONCRETE STONE FABRICATING SUPERVISOR CPT-98279 Pneumovax 15:17:19 CONCRETE STONE FABRICATING SUPERVISOR CPT-10881 Pneumovax 14:52:45 CONCRETE STONE FABRICATING SUPERVISOR CPT-27866 Venipuncture Draw Fee 14:06:30 CONCRETE STONE FABRICATING SUPERVISOR CPT-000 Give Appropriate Flu Vaccine 14:18:34 CONCRETE STONE FABRICATING SUPERVISOR 2 CPT-16972 Administration single or combination vac cine inc oral 14:46:00 CONCRETE STONE FABRICATING SUPERVISOR CPT-16898 Influenza split virus > age 3 14:46:00 CONCRETE STONE FABRICATING SUPERVISOR CPT-OV Office Visit 19:13:16 CDT CPT-14264 Zostavax 18:41:56 CDT CPT-88364 Administration single or combination vac cine inc oral 12:56:39 CDT CPT-20618 Zoster Vaccine (Zostavax) 12:56:39 CDT 2012 CPT-57822 Venipuncture Draw Fee 10:58:57 CDT CPT-36376 Sono pelvis non OB uterus ovaries cervix 17:45:04 CDT CPT-93093 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
--- OUTSIDE RECORDS SUMMARY | 2019-10-27 12:28 | XMS REPORT | Clinical Summary ---
Author Author Admin, Elba Lance [facility] Address Unknown 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 PSYCHOLOGY CLINICIAN Benign neoplasm of colon PERIPHERAL NEUROPATHY 356.9 [...] or unspecified type, not stated as uncontrolled COLON POLYPS ICD-211.3 Inactive Lolis Thomas APR N Medication List Medication Instructions Start Date Stop Date Generic Name NDC Status Provider Patient Instruction NAPROXEN SODIUM 220 MG ORAL TABS 1 three times a day as needed 2 NAPROXEN SODIUM 25667771559 No Longer Active Baltazar Childers MD Active ATORVASTATIN CALCIUM 20 MG ORAL TABS Take 1 tab daily ATORVASTATIN CALCIUM 85783583857 Active KENDALL Juarez Active FUROSEMIDE 40 MG TABS Take one by mouth daily FUROSEMIDE 45196798356 Active Baltazar Childers MD Active LISINOPRIL 20 MG TABS Take one by mouth daily at bedtime LISINOPRIL 16158681174 Active Baltazar Childers MD Active ONETOUCH ULTRA BLUE STRP Test twice a day GLUCO SE BLOOD 53779357474 No Longer Active Baltazar Childers MD Active TRUEPLUS LANCETS 33G MISC Test twice a day LANCET S 71537705385 Active KENDALL Juarez Active TRUEDRAW LANCING DEVICE MISC Test twice a day L ANCET DEVICES 95127187413 Active Baltazar Childers MD Active TRUETRACK TEST STRP Test twice a day GLUCOSE BLOO D 88087662453 Active KENDALL Juarez Active TRUETRACK BLOOD GLUCOSE W/DEVICE KIT Test twice a day BLOOD GLUCOSE MONITORING SUPPL 11819463460 Active Baltazar Childers MD Activ e HYDROCODONE-ACETAMINOPHEN 7.5-325 MG TABS Take 1 tab every 6-8 hour s PRN HYDROCODONE-ACETAMINOPHEN 81258282070 Active Baltazar Childers MD Active NORTRIPTYLINE HCL 50 MG CAPS 1 every night for neuropathy 4 NORTRIPTYLINE HCL 41208238063 Active Baltazar Childers MD Acti ve GABAPENTIN 300 MG CAPS 1 three times a day GABAPE NTIN 48998409658 Active Baltazar Childers MD Active GABAPENTIN 300 MG CAPS 1 po qd x 2 days, then 1 po BID x 2 d ays, then 1 po TID GABAPENTIN 96583983651 No Longer Active Baltazar silverman MD Active TRAMADOL HCL 50 MG TABS 1 twice a day as needed for pain TRAMADOL HCL 26738016786 Active Baltazar Childers MD Active NAPROXEN 500 MG TABS 1 tablet by mouth twice daily NAPROXEN 97188749528 No Longer Active Baltazar Childers MD Active PROAIR HFA 108 (90 BASE) MCG/ACT AERS 2 puffs four times a d ay as needed ALBUTEROL SULFATE 91112770378 Active KENDALL Juarez Active DEPO-TESTOSTERONE 200 MG/ML OIL as directed RUFINO TOSTERONE CYPIONATE 48350891244 No Longer Active Baltazar Childers MD Active LIPITOR 20 MG TABS Take one by mouth daily in evening ATORVASTATIN CALCIUM 83447235940 No Longer Active Baltazar Childers MD Activ e CRESTOR 10 MG TABS 1 by mouth every day R OSUVASTATIN CALCIUM 85692889228 No Longer Active Baltazar Childers MD Activ e PHENTERMINE HCL 37.5 MG TABS Take one by mouth daily 2 PHENTERMINE HCL 80344152916 No Longer Active Baltazar Childers MD Activ e ROBAXIN-750 750 MG TABS Take one by mouth daily ME THOCARBAMOL 42600345519 Active Baltazar Childers MD Active TIZANIDINE HCL 4 MG TABS 1 daily as needed for muscle spasm 2011 TIZANIDINE HCL 24223761329 No Longer Active Dawna Salazar RN Active TIFOXVOEXM-SJDG-[id number] 50-325-40 MG TABS 1 four time s a day as needed for heacache [id number] 74690622776 Active Baltazar Childers MD Active SUMATRIPTAN SUCCINATE 100 MG TABS 1 tablet by mouth at onset of migraine as needed SUMATRIPTAN SUCCINATE 68507230751 Active KENDALL Juarez Active LORATADINE 10 MG TABS Take one by mouth daily LORATADINE 57599369983 Active Baltazar Childers MD Active OMEPRAZOLE 20 MG CPDR Take one by mouth daily OMEPRAZOLE 03087314716 Active Argentina Lyons Active HYDROXYZINE HCL 25 MG TABS Take one by mouth daily HYDROXYZINE HCL 96557093534 Active Baltazar Childers MD Active GLIPIZIDE 10 MG TABS 1 tablet by mouth twice daily GLIPIZIDE 81963428160 Active Baltazar Childers MD Active ALPRAZOLAM 1 MG TABS 1 tablet by mouth daily at bedtime for restles s leg ALPRAZOLAM 63137312638 Active Baltazar Childers MD Active METFORMIN HCL 1000 MG TABS Take one by mouth twice daily METFORMIN HCL 14251312257 Active Baltazar Childers MD Active TIZANIDINE HCL 4 MG TABS 1 daily as needed for muscle spasm 2011 TIZANIDINE HCL 4 MG TABS 785787 TIZANIDINE HCL Inactiv e PHENTERMINE HCL 37.5 MG TABS Take one by mouth daily 2 PHENTERMINE HCL 37.5 MG TABS 331731 PHENTERMINE HCL Inactive CRESTOR 10 MG TABS 1 by mouth every day C RESTOR 10 MG TABS 824682 ROSUVASTATIN CALCIUM Inactive LIPITOR 20 MG TABS Take one by mouth daily in evening LIPITOR 20 MG TABS 992004 ATORVASTATIN CALCIUM Inactive DEPO-TESTOSTERONE 200 MG/ML OIL as directed 8 DEPO-TESTOSTERONE 200 MG/ML OIL 917903 TESTOSTERONE CYPIONATE Inactive NAPROXEN 500 MG TABS 1 tablet by mouth twice daily 201 07/27/22 NAPROXEN 500 MG TABS 491737 NAPROXEN Inactive GABAPENTIN 300 MG CAPS 1 po qd x 2 days, then 1 po BID x 2 d ays, then 1 po TID GABAPENTIN 300 MG CAPS 257993 GABAPENTIN Inact amie ONETOUCH ULTRA BLUE STRP Test twice a day ONETOUCH ULTRA BLUE STRP GLUCOSE BLOOD Inactive NAPROXEN SODIUM 220 MG ORAL TABS 1 three times a day as needed 2 NAPROXEN SODIUM 220 MG ORAL TABS 299528 NAPROXEN SODIUM Inactive Immunizations Vaccine Administration Date Value Standard Floyd cription pneumococcal immunization administered Pneumovax 23 [CVX33] pneumococcal polysaccharide vaccine, 23 valent Seasonal influenza vaccine, injectable, containing preservative, for > 3 years old (Afluria, FluLaval, Fluzone, Fluvirin, Fluarix, Agriflu(>= 18 yo)) Fluzone (>3 yrs.) [[id number]] Influenza, seasonal, inject able Seasonal influenza vaccine, injectable, containing preservative, for > 3 years old (Afluria, FluLaval, Fluzone, Fluvirin, Fluarix, Agriflu(>= 18 yo)) Fluzone (>3 yrs.) [[id number]] Influenza, seasonal, inject able Vital Signs Date Name Value Unit Range Description blood pressure, diastolic - 8462-4 78 mm[Hg] [...] 7.9 % 4.3-6.0 sodium, serum 139 mmol/L 015-622 2590/02/04 potassium, serum 5.4 mmol/L 3.5-5.2 chloride, serum [...] Panel - Chemistry sodium, serum 138 mmol/L 661-366 8006/11/23 carbon dioxide, venous blood 32.4 mmol/L 21.0-32 .0 potassium, serum 5.7 mmol/L 3.5-5.2 chloride, serum 98 mmol/L 98-107 blood glucose 136 mg/dL 65-110 urea nitrogen, blood 18 mg/dL 7-18 creatinine, serum 1.71 mg/dL 0.55-1.30 alanine aminotransferase (SGPT), serum 71 U/L 12-78 aspartate aminotransferase (SGOT), serum 34 U/L 15-37 calcium, serum 9.4 mg/dL 8.5-10.1 bilirubin, serum, total 0.40 mg/dL 0.00-1.00 cholesterol, serum 405 mg/dL 632-781 4302/11/23 triglyceride, serum, fasting 709 mg/dL 30-200 HDL [...] mg/dL Encounters Code Encounter Date Provider Facility CPT-38082 Level 4 Est. Patient 10:41:24 CDT Baltazar Childers MD [facility] CPT-39009 Level 4 Est. Patient 16:01:48 CDT Baltazar Childers MD [facility] CPT-79172 Level 4 Est. Patient 16:54:07 GUARD RANGE Baltazar Childers MD [facility] CPT-80059 Level 4 Est. Patient 15:42:12 CDT Baltazar Childers MD [facility] CPT-03842 Level 4 Est. Patient 11:29:55 CDT Baltazar Childers MD [facility] CPT-78471 Level 4 Est. Patient 14:15:19 CDT Baltazar Childers MD [facility] CPT-11076 Level 4 Est. Patient 12:20:13 CDT Baltazar Childers MD [facility] CPT-49579 Level 4 Est. Patient 14:52:45 GUARD RANGE Baltazar Childers MD [facility] CPT-05211 Level 4 Est. Patient 14:18:34 GUARD RANGE Baltazar Childers MD [facility] CPT-40064 Level 4 Est. Patient 15:18:29 CDT Baltazar Childers MD [facility] CPT-20105 Level 3 Est. Patient 12:45:34 CDT Baltazar Childers MD [facility] CPT-22459 Level 3 Est. Patient 10:10:11 CDT Baltazar Childers MD [facility] CPT-85816 Level 3 Est. Patient 14:07:50 CDT Baltazar Childers MD [facility] CPT-21681 Level 4 Est. Patient 12:26:10 GUARD RANGE Baltazar Childers MD [facility] CPT-15967 Level 4 Est. Patient 14:45:38 CDT Baltazar Childers MD [facility] CPT-42381 Level 4 New Patient 12:30:48 CDT Baltazar hinton MD [facility] Procedures Code Procedure Name Date Entry Date Standard Desc ription CPT-50619 Venipuncture Draw Fee 14:50:21 GUARD RANGE CPT-98491 Immunization Single Admin 17:35:35 CDT 2014 CPT-61378 Fluzone Quadrivalent preservative free ( >=3yrs.) 17:35:35 CDT CPT-36892 Venipuncture Draw Fee 12:10:27 GUARD RANGE CPT-82890 Fluzone Quadrivalent Intramuscular Suspe nsion 0.5 ML 10:49:13 CDT CPT-77083 First Vx Component - Ix admi n via ID IM or jet inj without physician counseling 15:17:19 GUARD RANGE CPT-95363 Pneumovax 23 15:17:19 GUARD RANGE CPT-71245 Pneumovax 14:52:45 GUARD RANGE CPT-43461 Venipuncture Draw Fee 14:06:30 GUARD RANGE CPT-000 Give Appropriate Flu Vaccine 14:18:34 GUARD RANGE 2 CPT-07632 Administration single or combination vac cine inc oral 14:46:00 GUARD RANGE CPT-92643 Influenza split virus > age 3 14:46:00 GUARD RANGE CPT-OV Office Visit 19:13:16 CDT CPT-52276 Zostavax 18:41:56 CDT CPT-44295 Administration single or combination vac cine inc oral 12:56:39 CDT CPT-91012 Zoster Vaccine (Zostavax) 12:56:39 CDT 2012 CPT-44833 Venipuncture Draw Fee 10:58:57 CDT CPT-58963 Sono pelvis non OB uterus ovaries cervix 17:45:04 CDT CPT-28416 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
--- OUTSIDE RECORDS SUMMARY | 2019-10-27 12:29 | XMS REPORT | Clinical Summary ---
Author Author Admin, Elba Lance [facility] Address Unknown Phone Unavailable Allergies, Adverse 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 DIRECTOR OF DISTANCE LEARNING Benign neoplasm of colon PERIPHERAL NEUROPATHY 356.9 [...] ronary atherosclerosis of unspecified type of vessel, [place] or graft OTH NONSPC ABN FINDNG [...] 1 tab daily for HTN AMLODIPINE BESYLATE 10855408953 Active KENDALL Juarez Active SYNTHROID 0.1 MG TAB 1 tablet by mouth daily LE VOTHYROXINE SODIUM 94638364295 Active Shonna Parker APRN Active GLIPIZIDE 10 MG TAB take 2 tablets twice daily GLIPIZIDE 64497404979 Active Baltazar Childers MD Active SUCRALFATE 1 GM TABS 1 four times a day to coat the stomach 2015 SUCRALFATE 08826307387 No Longer Active Baltazar Childers MD Active PEN NEEDLES 31G X 6 MM MISC use 1 daily INSULIN PEN NEEDLE 07273355404 Active Gato Rae MD Active TOUJEO SOLOSTAR 300 UNIT/ML SC SOPN 10 units SC daily INSULIN GLARGINE 54464456816 No Longer Active [place] ARUGETA Active LANTUS SOLOSTAR 100 UNIT/ML SC SOPN 10 units SC daily INSULIN GLARGINE 60665792013 Active KENDALL Juarez Active NAPROXEN SODIUM 220 MG ORAL TABS 1 three times a day as needed 2 NAPROXEN SODIUM 39236068042 No Longer Active Baltazar Childers MD Active ATORVASTATIN CALCIUM 20 MG ORAL TABS Take 1 tab daily ATORVASTATIN CALCIUM 16232465511 Active Baltazar Childers MD Active FUROSEMIDE 40 MG TABS Take one by mouth daily FUROSEMIDE 50442499830 Active Baltazar Childers MD Active LISINOPRIL 20 MG TABS Take one by mouth daily at bedtime LISINOPRIL 30370048551 No Longer Active Baltazar Childers MD Active ONETOUCH ULTRA BLUE STRP Test twice a day GLUCO SE BLOOD 39988479525 No Longer Active Baltazar Childers MD Active TRUEPLUS LANCETS 33G MISC Test twice a day LANCET S 08707969208 Active KENDALL Juarez Active TRUEDRAW LANCING DEVICE MISC Test twice a day L ANCET DEVICES 89291698627 Active Baltazar Childers MD Active TRUETRACK TEST STRP Test twice a day GLUCOSE BLOO D 26840359664 Active KENDALL Juarez Active TRUETRACK BLOOD GLUCOSE W/DEVICE KIT Test twice a day BLOOD GLUCOSE MONITORING SUPPL 46298262458 Active Baltazar Childers MD Activ e HYDROCODONE-ACETAMINOPHEN 7.5-325 MG TABS Take 1 tab every 6-8 hour s PRN HYDROCODONE-ACETAMINOPHEN 05372378871 Active Baltazar Childers MD Active NORTRIPTYLINE HCL 50 MG CAPS 1 every night for neuropathy 4 NORTRIPTYLINE HCL 92069817323 Active Baltazar Childers MD Acti ve GABAPENTIN 300 MG CAPS 1 three times a day GABAPE NTIN 01496612876 Active Balatzar Childers MD Active GABAPENTIN 300 MG CAPS 1 po qd x 2 days, then 1 po BID x 2 d ays, then 1 po TID GABAPENTIN 34478773326 No Longer Active Baltazar silverman MD Active TRAMADOL HCL 50 MG TABS 1 twice a day as needed for pain TRAMADOL HCL 55689399284 Active Baltazar Childers MD Active NAPROXEN 500 MG TABS 1 tablet by mouth twice daily NAPROXEN 07471989169 No Longer Active Baltazar Childers MD Active PROAIR HFA 108 (90 BASE) MCG/ACT AERS 2 puffs four times a d ay as needed ALBUTEROL SULFATE 28466610833 Active Baltazar Childers MD Active DEPO-TESTOSTERONE 200 MG/ML OIL as directed RUFINO TOSTERONE CYPIONATE 12621740112 No Longer Active Baltazar Childers MD Active LIPITOR 20 MG TABS Take one by mouth daily in evening ATORVASTATIN CALCIUM 14168193015 No Longer Active Baltazar Childers MD Activ e CRESTOR 10 MG TABS 1 by mouth every day R OSUVASTATIN CALCIUM 41665553632 No Longer Active Baltazar Childers MD Activ e PHENTERMINE HCL 37.5 MG TABS Take one by mouth daily 2 PHENTERMINE HCL 12759167314 No Longer Active Baltazar Childers MD Activ e ROBAXIN-750 750 MG TABS Take one by mouth daily ME THOCARBAMOL 12061730520 Active Baltazar Childers MD Active TIZANIDINE HCL 4 MG TABS 1 daily as needed for muscle spasm 2011 TIZANIDINE HCL 70331498898 No Longer Active Dawna Salazar RN Active [id number] 50-325-40 MG TABS 1 four time s a day as needed for heacache [id number] 91026692256 Active KENDALL Juarez Active SUMATRIPTAN SUCCINATE 100 MG TABS 1 tablet by mouth at onset of migraine as needed SUMATRIPTAN SUCCINATE 83391663497 Active KENDALL Juarez Active LORATADINE 10 MG TABS Take one by mouth daily LORATADINE 50920192642 Active Beth KENDALL Carr Active OMEPRAZOLE 20 MG CPDR Take one by mouth daily OMEPRAZOLE 85047084600 Active Baltazar Childers MD Active HYDROXYZINE HCL 25 MG TABS Take one by mouth daily HYDROXYZINE HCL 10873686402 Active Baltazar Childers MD Active ALPRAZOLAM 1 MG TABS 1 tablet by mouth daily at bedtime for restles s leg ALPRAZOLAM 86865038371 Active Baltazar Childers MD Active METFORMIN HCL 1000 MG TABS Take one by mouth twice daily METFORMIN HCL 93971377748 Active Baltazar Childers MD Active TIZANIDINE HCL 4 MG TABS 1 daily as needed for muscle spasm 2011 TIZANIDINE HCL 4 MG TABS 185035 TIZANIDINE HCL Inactiv e PHENTERMINE HCL 37.5 MG TABS Take one by mouth daily 2 PHENTERMINE HCL 37.5 MG TABS 824676 PHENTERMINE HCL Inactive CRESTOR 10 MG TABS 1 by mouth every day C RESTOR 10 MG TABS 468868 ROSUVASTATIN CALCIUM Inactive LIPITOR 20 MG TABS Take one by mouth daily in evening LIPITOR 20 MG TABS 631721 ATORVASTATIN CALCIUM Inactive DEPO-TESTOSTERONE 200 MG/ML OIL as directed 8 DEPO-TESTOSTERONE 200 MG/ML OIL 125690 TESTOSTERONE CYPIONATE Inactive NAPROXEN 500 MG TABS 1 tablet by mouth twice daily 201 07/27/22 NAPROXEN 500 MG TABS 582495 NAPROXEN Inactive GABAPENTIN 300 MG CAPS 1 po qd x 2 days, then 1 po BID x 2 d ays, then 1 po TID GABAPENTIN 300 MG CAPS 579590 GABAPENTIN Inact amie ONETOUCH ULTRA BLUE STRP Test twice a day ONETOUCH ULTRA BLUE STRP GLUCOSE BLOOD Inactive NAPROXEN SODIUM 220 MG ORAL TABS 1 three times a day as needed 2 NAPROXEN SODIUM 220 MG ORAL TABS 375970 NAPROXEN SODIUM Inactive TOUJEO SOLOSTAR 300 UNIT/ML SC SOPN 10 units SC daily TOUJEO SOLOSTAR 300 UNIT/ML SC SOPN INSULIN GLARGINE Inac tive SUCRALFATE 1 GM TABS 1 four times a day to coat the stomach 2015 SUCRALFATE 1 GM TABS 492778 SUCRALFATE Inactive Immunizations Vaccine Administration Date Value Standard Floyd cription pneumococcal immunization administered Pneumovax 23 [CVX33] pneumococcal polysaccharide vaccine, 23 valent Seasonal influenza vaccine, injectable, containing preservative, for > 3 years old (Afluria, FluLaval, Fluzone, Fluvirin, Fluarix, Agriflu(>= 18 yo)) Fluzone (>3 yrs.) [[id number]] Influenza, seasonal, inject able Seasonal influenza vaccine, injectable, containing preservative, for > 3 years old (Afluria, FluLaval, Fluzone, Fluvirin, Fluarix, Agriflu(>= 18 yo)) Fluzone (>3 yrs.) [ERE609] Influenza, seasonal, inject able Vital Signs Date [...] C - Chemistry sodium, serum 143 mmol/L 399-817 5082/06/19 potassium, serum 5.9 mmol/L 3.5-5.2 chloride, serum 105 mmol/L 98-107 carbon dioxide, venous blood 30.2 mmol/L 21.0-32 .0 blood glucose 189 mg/dL 65-110 calcium, serum 9.7 mg/dL 8.5-10.1 urea nitrogen, blood 37 mg/dL 7-18 creatinine, serum 2.11 mg/dL 0.55-1.30 hemoglobin A1C, blood, as % of total hemoglobin 8.2 % 4.3-6.0 Lab Report: CBC, Renal Panel - Chemistry sodium, serum 142 mmol/L 185-476 2395/08/11 potassium, serum 4.8 mmol/L 3.5-5.2 chloride, serum [...] Panel - Chemistry sodium, serum 143 mmol/L 291-267 8570/12/19 carbon dioxide, venous blood 32.5 mmol/L 21.0-32 .0 potassium, serum 4.9 mmol/L 3.5-5.2 chloride, serum 101 mmol/L 98-107 blood glucose 129 mg/dL 65-110 urea nitrogen, blood 18 mg/dL 7-18 creatinine, serum 1.79 mg/dL 0.55-1.30 alanine aminotransferase (SGPT), serum 34 U/L 12-78 aspartate aminotransferase (SGOT), serum 26 U/L 15-37 calcium, serum 8.9 mg/dL 8.5-10.1 bilirubin, serum, total 0.30 mg/dL 0.00-1.00 cholesterol, serum 214 mg/dL 964-084 8380/12/19 triglyceride, serum, fasting 351 mg/dL 30-200 HDL [...] 4.3-6.0 Encounters Code Encounter Date Provider Facility CPT-28606 Level 4 Est. Patient 14:22:31 CDT Baltazar Childers MD [facility] CPT-27216 Level 4 Est. Patient 15:44:38 CDT Shonna Parker APRN [facility] CPT-56415 Level 4 Est. Patient 11:34:17 CDT Baltazar Childers MD [facility] CPT-98847 Level 3 Est. Patient 16:40:40 CDT Baltazar Childers MD [facility] CPT-88096 Level 4 Est. Patient 10:41:24 CDT Baltazar Childers MD [facility] CPT-18678 Level 4 Est. Patient 16:01:48 CDT Baltazar Childers MD [facility] CPT-80714 Level 4 Est. Patient 16:54:07 LEAD RECREATION ASSISTANT Baltazar Childers MD [facility] CPT-84305 Level 4 Est. Patient 15:42:12 CDT Baltazar Childers MD [facility] CPT-23234 Level 4 Est. Patient 11:29:55 CDT Baltazar Childers MD [facility] CPT-10754 Level 4 Est. Patient 14:15:19 CDT Baltazar Childers MD [facility] CPT-10145 Level 4 Est. Patient 12:20:13 CDT Baltazar Childers MD [facility] CPT-31900 Level 4 Est. Patient 14:52:45 LEAD RECREATION ASSISTANT Baltazar Childers MD [facility] CPT-02718 Level 4 Est. Patient 14:18:34 LEAD RECREATION ASSISTANT Baltazar Childers MD [facility] CPT-99253 Level 4 Est. Patient 15:18:29 CDT Baltazar Childers MD [facility] CPT-63017 Level 3 Est. Patient 12:45:34 CDT Baltazar Childers MD [facility] CPT-63238 Level 3 Est. Patient 10:10:11 CDT Baltazar Childers MD [facility] CPT-76246 Level 3 Est. Patient 14:07:50 CDT Baltazar Childers MD [facility] CPT-24274 Level 4 Est. Patient 12:26:10 LEAD RECREATION ASSISTANT Baltazar Childers MD [facility] CPT-84661 Level 4 Est. Patient 14:45:38 CDT Baltazar Childers MD [facility] CPT-18005 Level 4 New Patient 12:30:48 CDT Baltazar hinton MD [facility] Procedures Code Procedure Name Date Entry Date Standard Desc ription CPT-45050 Venipuncture Draw Fee 12:04:12 CDT CPT-49850 Lipid - LAB USE ONLY 17:39:15 LEAD RECREATION ASSISTANT 9 CPT-35118 HGBA1C - LAB USE ONLY 17:39:15 LEAD RECREATION ASSISTANT CPT-37715 CMP - LAB USE ONLY 17:39:14 LEAD RECREATION ASSISTANT CPT-82961 Venipuncture Draw Fee 17:39:14 LEAD RECREATION ASSISTANT CPT-53697 First Vx - Ix admin via ID I M or jet injects without counseling by physician 16:55:17 LEAD RECREATION ASSISTANT CPT-65977 Fluzone Quadrivalent Intramuscular Suspe nsion 0.5 ML 16:55:17 LEAD RECREATION ASSISTANT CPT-66538 Renal Panel - LAB USE ONLY 17:39:20 CDT 201 10/31/07 CPT-96058 CBC - LAB USE ONLY 17:39:20 CDT CPT-57170 Venipuncture Draw Fee 17:39:20 CDT CPT-01237 Venipuncture Draw Fee 14:33:30 CDT CPT-73598 Renal Panel - LAB USE ONLY 14:33:30 CDT 201 10/31/07 CPT-96927 CBC - LAB USE ONLY 14:33:29 CDT CPT-18701 Venipuncture Draw Fee 14:50:21 LEAD RECREATION ASSISTANT CPT-25837 Immunization Single Admin 17:35:35 CDT 2014 CPT-32572 Fluzone Quadrivalent preservative free ( >=3yrs.) 17:35:35 CDT CPT-94699 Venipuncture Draw Fee 12:10:27 LEAD RECREATION ASSISTANT CPT-51589 Fluzone Quadrivalent Intramuscular Suspe nsion 0.5 ML 10:49:13 CDT CPT-60635 First Vx Component - Ix admi n via ID IM or jet inj without physician counseling 15:17:19 LEAD RECREATION ASSISTANT CPT-30039 Pneumovax 23 15:17:19 LEAD RECREATION ASSISTANT CPT-30030 Pneumovax 14:52:45 LEAD RECREATION ASSISTANT CPT-99729 Venipuncture Draw Fee 14:06:30 LEAD RECREATION ASSISTANT CPT-000 Give Appropriate Flu Vaccine 14:18:34 LEAD RECREATION ASSISTANT 2 CPT-53125 Administration single or combination vac cine inc oral 14:46:00 LEAD RECREATION ASSISTANT CPT-79456 Influenza split virus > age 3 14:46:00 LEAD RECREATION ASSISTANT CPT-OV Office Visit 19:13:16 CDT CPT-75472 Zostavax 18:41:56 CDT CPT-54320 Administration single or combination vac cine inc oral 12:56:39 CDT CPT-10172 Zoster Vaccine (Zostavax) 12:56:39 CDT 2012 CPT-61784 Venipuncture Draw Fee 10:58:57 CDT CPT-92910 Sono pelvis non OB uterus ovaries cervix 17:45:04 CDT CPT-94756 Sono retroperitoneal complete kidneys an d bladder 17:14:36 CDT CPT-OV Office Visit 14:59:38 LEAD RECREATION ASSISTANT CPT-J1070 Depo Testosterone 100 mg 14:50:13 CDT 03/05 CPT-27473 Abx/Therapy Injection 14:50:13 CDT CPT-73257 Administration single or combination vac cine inc oral 14:34:43 CDT CPT-70995 Influenza split virus > age 3 14:34:43 CDT CPT-J1070 Depo Testosterone 100 mg 17:37:13 CDT 01/11 CPT-47224 Abx/Therapy Injection 17:37:13 CDT CPT-96109 Venipuncture Draw Fee 16:30:13 CDT CPT-57283 Venipuncture Draw Fee 16:29:43 CDT CPT-J1070 Depo Testosterone 100 mg 14:45:38 CDT 01/11
--- OUTSIDE RECORDS SUMMARY | 2019-10-27 12:29 | XMS REPORT | Clinical Summary ---
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 Benign neoplasm of colon PERIPHERAL NEUROPATHY 356.9 [...] a day as needed 2 NAPROXEN SODIUM 09496202702 No Longer Active Baltazar Childers MD Active ATORVASTATIN CALCIUM 20 MG ORAL TABS Take 1 tab daily ATORVASTATIN CALCIUM 87923242020 Active Kelly Iraheta LPN Active FUROSEMIDE 40 MG TABS Take one by mouth daily FUROSEMIDE 68963544226 Active Baltazar Childers MD Active LISINOPRIL 20 MG TABS Take one by mouth daily at bedtime LISINOPRIL 16163350765 Active KENDALL Juarez Active ONETOUCH ULTRA BLUE STRP Test twice a day GLUCO SE BLOOD 40642804619 No Longer Active Baltazar Childers MD Active TRUEPLUS LANCETS 33G MISC Test twice a day LANCET S 74541701295 Active KENDALL Juarez Active TRUEDRAW LANCING DEVICE MISC Test twice a day L ANCET DEVICES 79686355615 Active Blatazar Childers MD Active TRUETRACK TEST STRP Test twice a day GLUCOSE BLOO D 80221077383 Active Baltazar Childers MD Active TRUETRACK BLOOD GLUCOSE W/DEVICE KIT Test twice a day BLOOD GLUCOSE MONITORING SUPPL 15680453793 Active Baltazar Childers MD Activ e HYDROCODONE-ACETAMINOPHEN 7.5-325 MG TABS Take 1 tab every 6-8 hour s PRN HYDROCODONE-ACETAMINOPHEN 55278768786 Active Baltazar Childers MD Active NORTRIPTYLINE HCL 50 MG CAPS 1 every night for neuropathy 4 NORTRIPTYLINE HCL 24129118697 Active Baltazar Childers MD Acti ve GABAPENTIN 300 MG CAPS 1 three times a day GABAPE NTIN 87372251775 Active KENDALL Juarez Active GABAPENTIN 300 MG CAPS 1 po qd x 2 days, then 1 po BID x 2 d ays, then 1 po TID GABAPENTIN 85540125579 No Longer Active Baltazar silverman MD Active TRAMADOL HCL 50 MG TABS 1 twice a day as needed for pain TRAMADOL HCL 15583086083 Active Baltazar Childers MD Active NAPROXEN 500 MG TABS 1 tablet by mouth twice daily NAPROXEN 48088997702 No Longer Active Baltazar Childers MD Active PROAIR HFA 108 (90 BASE) MCG/ACT AERS 2 puffs four times a d ay as needed ALBUTEROL SULFATE 28784354404 Active KENDALL Juarez Active DEPO-TESTOSTERONE 200 MG/ML OIL as directed RUFINO TOSTERONE CYPIONATE 09452558173 No Longer Active Baltazar Childers MD Active LIPITOR 20 MG TABS Take one by mouth daily in evening ATORVASTATIN CALCIUM 63478604131 No Longer Active Baltazar Childers MD Activ e CRESTOR 10 MG TABS 1 by mouth every day R OSUVASTATIN CALCIUM 88144632246 No Longer Active Baltazar Childers MD Activ e PHENTERMINE HCL 37.5 MG TABS Take one by mouth daily 2 PHENTERMINE HCL 47377285036 No Longer Active Baltazar Childers MD Activ e ROBAXIN-750 750 MG TABS Take one by mouth daily ME THOCARBAMOL 95514516402 Active Baltazar Childers MD Active TIZANIDINE HCL 4 MG TABS 1 daily as needed for muscle spasm 2011 TIZANIDINE HCL 00239378126 No Longer Active Dawna Salazar RN Active [id number]-[id number]-[id number] 50-325-40 MG TABS 1 four time s a day as needed for heacache [id number] 97414359403 Active Baltazar Childers MD Active SUMATRIPTAN SUCCINATE 100 MG TABS 1 tablet by mouth at onset of migraine as needed SUMATRIPTAN SUCCINATE 91460583020 Active KENDALL Juarez Active LORATADINE 10 MG TABS Take one by mouth daily LORATADINE 62211740435 Active Baltazar Childers MD Active OMEPRAZOLE 20 MG CPDR Take one by mouth daily OMEPRAZOLE 36038626491 Active Baltazar Childers MD Active HYDROXYZINE HCL 25 MG TABS Take one by mouth daily HYDROXYZINE HCL 34098873317 Active Baltazar Childers MD Active GLIPIZIDE 10 MG TABS 1 tablet by mouth twice daily GLIPIZIDE 63313067487 Active Bella Suarez APRN Active ALPRAZOLAM 1 MG TABS 1 tablet by mouth daily at bedtime for restles s leg ALPRAZOLAM 08953681811 Active Baltazar Childers MD Active METFORMIN HCL 1000 MG TABS Take one by mouth twice daily METFORMIN HCL 39454049450 Active Baltazar Childers MD Active TIZANIDINE HCL 4 MG TABS 1 daily as needed for muscle spasm 2011 TIZANIDINE HCL 4 MG TABS 221639 TIZANIDINE HCL Inactiv e PHENTERMINE HCL 37.5 MG TABS Take one by mouth daily 2 PHENTERMINE HCL 37.5 MG TABS 196070 PHENTERMINE HCL Inactive CRESTOR 10 MG TABS 1 by mouth every day C RESTOR 10 MG TABS ROSUVASTATIN CALCIUM Inactive LIPITOR 20 MG TABS Take one by mouth daily in evening LIPITOR 20 MG TABS 602717 ATORVASTATIN CALCIUM Inactive DEPO-TESTOSTERONE 200 MG/ML OIL as directed 8 DEPO-TESTOSTERONE 200 MG/ML OIL 661004 TESTOSTERONE CYPIONATE Inactive NAPROXEN 500 MG TABS 1 tablet by mouth twice daily 201 07/27/22 NAPROXEN 500 MG TABS 422805 NAPROXEN Inactive GABAPENTIN 300 MG CAPS 1 po qd x 2 days, then 1 po BID x 2 d ays, then 1 po TID GABAPENTIN 300 MG CAPS 716672 GABAPENTIN Inact amie ONETOUCH ULTRA BLUE STRP Test twice a day ONETOUCH ULTRA BLUE STRP GLUCOSE BLOOD Inactive NAPROXEN SODIUM 220 MG ORAL TABS 1 three times a day as needed 2 NAPROXEN SODIUM 220 MG ORAL TABS 462663 NAPROXEN SODIUM Inactive Immunizations Vaccine Administration Date Value Standard Floyd cription pneumococcal immunization administered Pneumovax 23 [CVX33] pneumococcal polysaccharide vaccine, 23 valent Seasonal influenza vaccine, injectable, containing preservative, for > 3 years old (Afluria, FluLaval, Fluzone, Fluvirin, Fluarix, Agriflu(>= 18 yo)) Fluzone (>3 yrs.) [OVK709] Influenza, seasonal, inject able Seasonal influenza vaccine, injectable, containing preservative, for > 3 years old (Afluria, FluLaval, Fluzone, Fluvirin, Fluarix, Agriflu(>= 18 yo)) Fluzone (>3 yrs.) [HCP183] Influenza, seasonal, inject able Vital Signs Date [...] - Chem istry sodium, serum 140 mmol/L 820-607 7335/05/05 potassium, serum 4.9 mmol/L 3.5-5.2 chloride, serum 99 mmol/L 98-107 carbon dioxide, venous blood 34.3 mmol/L 21.0-32 .0 blood glucose 132 mg/dL 65-110 calcium, serum 10.1 mg/dL 8.5-10.1 urea nitrogen, blood 23 mg/dL 7-18 creatinine, serum 2.00 mg/dL 0.60-1.30 Lab Report: CBC, HGBA1C, Renal Panel - C hemistry hemoglobin A1C, blood, as % of total hemoglobin 7.9 % 4.3-6.0 sodium, serum 139 mmol/L 714-074 9077/02/04 potassium, serum 5.4 mmol/L 3.5-5.2 chloride, serum [...] Panel - Chemistry sodium, serum 138 mmol/L 108-246 8466/11/23 carbon dioxide, venous blood 32.4 mmol/L 21.0-32 .0 potassium, serum 5.7 mmol/L 3.5-5.2 chloride, serum 98 mmol/L 98-107 blood glucose 136 mg/dL 65-110 urea nitrogen, blood 18 mg/dL 7-18 creatinine, serum 1.71 mg/dL 0.55-1.30 alanine aminotransferase (SGPT), serum 71 U/L 12-78 aspartate aminotransferase (SGOT), serum 34 U/L 15-37 calcium, serum 9.4 mg/dL 8.5-10.1 bilirubin, serum, total 0.40 mg/dL 0.00-1.00 cholesterol, serum 405 mg/dL 165-054 2010/11/23 triglyceride, serum, fasting 709 mg/dL 30-200 HDL [...] mg/dL Encounters Code Encounter Date Provider Facility CPT-37564 Level 4 Est. Patient 16:54:07 BEHAVIOR CLINICIAN Baltazar Childers MD [facility] CPT-61860 Level 4 Est. Patient 15:42:12 CDT Baltazar Childers MD [facility] CPT-39232 Level 4 Est. Patient 11:29:55 CDT Baltazar Childers MD [facility] CPT-39789 Level 4 Est. Patient 14:15:19 CDT Baltazar Childers MD [facility] CPT-08957 Level 4 Est. Patient 12:20:13 CDT Baltazar Childers MD [facility] CPT-04038 Level 4 Est. Patient 14:52:45 BEHAVIOR CLINICIAN Baltazar Childers MD [facility] CPT-85833 Level 4 Est. Patient 14:18:34 BEHAVIOR CLINICIAN Baltazar Childers MD [facility] CPT-89541 Level 4 Est. Patient 15:18:29 CDT Baltazar Childers MD [facility] CPT-42670 Level 3 Est. Patient 12:45:34 CDT Baltazar Childers MD [facility] CPT-18929 Level 3 Est. Patient 10:10:11 CDT Baltazar Childers MD [facility] CPT-75956 Level 3 Est. Patient 14:07:50 CDT Baltazar Childers MD [facility] CPT-15229 Level 4 Est. Patient 12:26:10 BEHAVIOR CLINICIAN Baltazar Childers MD [facility] CPT-67317 Level 4 Est. Patient 14:45:38 CDT Baltazar Childers MD [facility] CPT-71168 Level 4 New Patient 12:30:48 CDT Baltazar hinton MD [facility] Procedures Code Procedure Name Date Entry Date Standard Desc ription CPT-13592 Venipuncture Draw Fee 14:50:21 BEHAVIOR CLINICIAN CPT-60726 Immunization Single Admin 17:35:35 CDT 2014 CPT-04118 Fluzone Quadrivalent preservative free ( >=3yrs.) 17:35:35 CDT CPT-46966 Venipuncture Draw Fee 12:10:27 BEHAVIOR CLINICIAN CPT-55328 Fluzone Quadrivalent Intramuscular Suspe nsion 0.5 ML 10:49:13 CDT CPT-69232 First Vx Component - Ix admi n via ID IM or jet inj without physician counseling 15:17:19 BEHAVIOR CLINICIAN CPT-68506 Pneumovax 23 15:17:19 BEHAVIOR CLINICIAN CPT-95665 Pneumovax 14:52:45 BEHAVIOR CLINICIAN CPT-54059 Venipuncture Draw Fee 14:06:30 BEHAVIOR CLINICIAN CPT-000 Give Appropriate Flu Vaccine 14:18:34 BEHAVIOR CLINICIAN 2 CPT-09492 Administration single or combination vac cine inc oral 14:46:00 BEHAVIOR CLINICIAN CPT-47212 Influenza split virus > age 3 14:46:00 BEHAVIOR CLINICIAN CPT-OV Office Visit 19:13:16 CDT CPT-81545 Zostavax 18:41:56 CDT CPT-43975 Administration single or combination vac cine inc oral 12:56:39 CDT CPT-30443 Zoster Vaccine (Zostavax) 12:56:39 CDT 2012 CPT-94157 Venipuncture Draw Fee 10:58:57 CDT CPT-02087 Sono pelvis non OB uterus ovaries cervix 17:45:04 CDT CPT-51244 Sono retroperitoneal complete kidneys an d bladder 17:14:36 CDT CPT-OV Office Visit 14:59:38 BEHAVIOR CLINICIAN CPT-J1070 Depo Testosterone 100 mg 14:50:13 CDT 03/05 CPT-06760 Abx/Therapy Injection 14:50:13 CDT CPT-50326 Administration single or combination vac cine inc oral 14:34:43 CDT CPT-92165 Influenza split virus > age 3 14:34:43 CDT CPT-J1070 Depo Testosterone 100 mg 17:37:13 CDT 01/11 CPT-54745 Abx/Therapy Injection 17:37:13 CDT CPT-91024 Venipuncture Draw Fee 16:30:13 CDT CPT-77856 Venipuncture Draw Fee 16:29:43 CDT CPT-J1070 Depo Testosterone 100 mg 14:45:38 CDT 01/11
--- OUTSIDE RECORDS SUMMARY | 2019-10-27 12:29 | XMS REPORT | Clinical Summary ---
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 Benign neoplasm of colon PERIPHERAL NEUROPATHY 356.9 [...] Provider Patient Instruction ZITHROMAX Z-ISAIAS 250 MG ORAL TABLET Take two tablets to day and then 1 tablet daily for 4 days AZITHROMYCIN 66995232644 No Longer A ctive Baltazar Childers MD Active LANTUS SOLOSTAR 100 UNIT/ML SUBCUTANEOUS SOLUTION PEN- INJECTOR 30 units SC daily INSULIN GLARGINE 15100422290 Active Baltazar Childers MD Active AMLODIPINE BESYLATE 5 MG ORAL TABLET 1 tab daily for HTN AMLODIPINE BESYLATE 90024882789 Active Baltazar Childers MD Active SYNTHROID 100 MCG ORAL TABLET 1 tablet by mouth daily LEVOTHYROXINE SODIUM 33044561856 Active Baltazar Childers MD Active GLIPIZIDE 10 MG ORAL TABLET take 2 tablets twice daily GLIPIZIDE 85869804995 Active Baltazar Childers MD Active SUCRALFATE 1 GM ORAL TABLET 1 four times a day to coat the stoma ch SUCRALFATE 54146906306 No Longer Active Baltazar Childers MD Active PEN NEEDLES 31G X 6 MM use 1 daily INSULIN PEN NE EDLE 12628509307 Active KENDALL Juarez Active TOUJEO SOLOSTAR 300 UNIT/ML SUBCUTANEOUS SOLUTION PEN- INJECTOR 10 units SC daily INSULIN GLARGINE 83124459408 No Longer Active Rola ARGUETA Active NAPROXEN SODIUM 220 MG ORAL TABLET 1 three times a day as needed NAPROXEN SODIUM 54769305629 No Longer Active Baltazar Childers MD Active ATORVASTATIN CALCIUM 20 MG ORAL TABLET Take 1 tab daily ATORVASTATIN CALCIUM 67038824082 Active Baltazar Childers MD A ctive FUROSEMIDE 40 MG ORAL TABLET Take one by mouth daily FUROSEMIDE 22840495209 Active Jessy Arellano LPN Active LISINOPRIL 20 MG ORAL TABLET Take one by mouth daily at bedtime LISINOPRIL 08111002012 No Longer Active Baltazar Childers MD Active ONETOUCH ULTRA BLUE IN VITRO STRIP Test twice a day 07/11/11 GLUCOSE BLOOD 09893627247 No Longer Active Baltazar Childers MD Acti ve TRUEPLUS LANCETS 33G Test twice a day LANCETS 8943424 9503 Active KENDALL Juarez Active TRUEDRAW LANCING DEVICE Test twice a day LANCET DEVICES 04383585184 Active Baltazar Childers MD Active TRUETRACK TEST IN VITRO STRIP Test twice a day GLUCOSE BLOOD 84343216836 Active KENDALL Juarez Active TRUETRACK BLOOD GLUCOSE w/Device KIT Test twice a day BLOOD GLUCOSE MONITORING SUPPL 35089559010 Active Baltazar Childers MD Activ e HYDROCODONE-ACETAMINOPHEN 7.5-325 MG ORAL TABLET Take 1 tab every 6-8 hours PRN HYDROCODONE-ACETAMINOPHEN 78557862129 Active Baltazar Nickerson MD Active NORTRIPTYLINE HCL 50 MG ORAL CAPSULE 1 every night for neuropathy 2 NORTRIPTYLINE HCL 44034276583 Active Baltazar Childers MD Acti ve GABAPENTIN 300 MG ORAL CAPSULE 1 three times a day GABAPENTIN 81682339314 Active Baltazar Childers MD Active GABAPENTIN 300 MG ORAL CAPSULE 1 po qd x 2 days, then 1 po BID x 2 days, then 1 po TID GABAPENTIN 63330832841 No Longer Active Baltazar Childers MD Active TRAMADOL HCL 50 MG ORAL TABLET 1 twice a day as needed for pain 201 07/27/28 TRAMADOL HCL 96315578808 Active Baltazar Childers MD Active NAPROXEN 500 MG ORAL TABLET 1 tablet by mouth twice daily NAPROXEN 50066156209 No Longer Active Blatazar Childers MD Active PROAIR HFA 108 (90 Base) MCG/ACT INHALATION AEROSOL SO LUTION 2 puffs four times a day as needed ALBUTEROL SULFATE 78857355012 Active Paul Childers MD Active DEPO-TESTOSTERONE 200 MG/ML INTRAMUSCULAR SOLUTION as directed TESTOSTERONE CYPIONATE 98592743779 No Longer Active Baltazar Childers MD Active LIPITOR 20 MG ORAL TABLET Take one by mouth daily in evening ATORVASTATIN CALCIUM 72406117044 No Longer Active Baltazar Childers MD Active CRESTOR 10 MG ORAL TABLET 1 by mouth every day ROSUVASTATIN CALCIUM 91692709763 No Longer Active Baltazar Childers MD Active PHENTERMINE HCL 37.5 MG ORAL TABLET Take one by mouth daily PHENTERMINE HCL 94861588652 No Longer Active Baltazar Childers MD Ac tive ROBAXIN-750 750 MG ORAL TABLET Take one by mouth daily METHOCARBAMOL 67423908766 Active Baltazar Childers MD Active TIZANIDINE HCL 4 MG ORAL TABLET 1 daily as needed for muscle spa sm TIZANIDINE HCL 21221414494 No Longer Active Dawna Martin RN Active [id number] 50-325-40 MG ORAL TABLET 1 fo ur times a day as needed for heacache [id number] 18529036125 Active Baltazar Childers MD Active SUMATRIPTAN SUCCINATE 100 MG ORAL TABLET 1 tablet by m outh at onset of migraine as needed SUMATRIPTAN SUCCINATE 18719343516 Active Baltazar Nickerson MD Active LORATADINE 10 MG ORAL TABLET Take one by mouth daily LORATADINE 35002038048 Active Baltazar Childers MD Active OMEPRAZOLE 20 MG ORAL CAPSULE DELAYED RELEASE Take one by mouth jostin ly OMEPRAZOLE 66361375049 Active Baltazar Childers MD Active HYDROXYZINE HCL 25 MG ORAL TABLET Take one by mouth daily HYDROXYZINE HCL 68172200033 Active Baltazar Childers MD Active ALPRAZOLAM 1 MG ORAL TABLET 1 tablet [facility] ALPRAZOLAM 96104156652 Active Baltazar Childers MD Active METFORMIN HCL 1000 MG ORAL TABLET Take one by mouth twice daily METFORMIN HCL 63432420221 Active Baltazar Childers MD Active TIZANIDINE HCL 4 MG ORAL TABLET 1 daily as needed for muscle spa sm TIZANIDINE HCL 4 MG ORAL TABLET 911042 TIZANIDINE HCL Inactive PHENTERMINE HCL 37.5 MG ORAL TABLET Take one by mouth daily PHENTERMINE HCL 37.5 MG ORAL TABLET 896325 PHENTERMINE HCL Inac tive CRESTOR 10 MG ORAL TABLET 1 by mouth every day CRESTOR 10 MG ORAL TABLET 795483 ROSUVASTATIN CALCIUM Inactive LIPITOR 20 MG ORAL TABLET Take one by mouth daily in evening LIPITOR 20 MG ORAL TABLET 028767 ATORVASTATIN CALCIUM Inactive DEPO-TESTOSTERONE 200 MG/ML INTRAMUSCULAR SOLUTION as directed DEPO-TESTOSTERONE 200 MG/ML INTRAMUSCULAR SOLUTION 499944 RUFINO TOSTERONE CYPIONATE Inactive NAPROXEN 500 MG ORAL TABLET 1 tablet by mouth twice daily NAPROXEN 500 MG ORAL TABLET 139375 NAPROXEN Inactive GABAPENTIN 300 MG ORAL CAPSULE 1 po qd x 2 days, then 1 po BID x 2 days, then 1 po TID GABAPENTIN 300 MG ORAL CAPSULE 948776 GABAP ENTIN Inactive ONETOUCH ULTRA BLUE IN VITRO STRIP Test twice a day 07/11/11 ONETOUCH ULTRA BLUE IN VITRO STRIP GLUCOSE BLOOD Inact amie NAPROXEN SODIUM 220 MG ORAL TABLET 1 three times a day as needed NAPROXEN SODIUM 220 MG ORAL TABLET 138133 NAPROXEN SODI UM Inactive TOUJEO SOLOSTAR 300 UNIT/ML SUBCUTANEOUS SOLUTION PEN- INJECTOR 10 units SC daily TOUJEO SOLOSTAR 300 UNIT/ML SUBCUTANEOUS SOLUTION PEN-INJECTOR INSULIN GLARGINE Inactive SUCRALFATE 1 GM ORAL TABLET 1 four times a day to coat the stoma ch SUCRALFATE 1 GM ORAL TABLET 554326 SUCRALFATE Inac tive ZITHROMAX Z-ISAIAS 250 MG ORAL TABLET Take two tablets to day and then 1 tablet daily for 4 days ZITHROMAX Z-ISAIAS 250 MG ORAL TAB LET 583609 AZITHROMYCIN Inactive Immunizations Vaccine Administration Date Value Standard Floyd cription pneumococcal immunization administered Pneumovax 23 [CVX33] pneumococcal polysaccharide vaccine, 23 valent Seasonal influenza vaccine, injectable, containing preservative, for > 3 years old (Afluria, FluLaval, Fluzone, Fluvirin, Fluarix, Agriflu(>= 18 yo)) Fluzone (>3 yrs.) [[id number]] Influenza, seasonal, inject able Seasonal influenza vaccine, injectable, containing preservative, for > 3 years old (Afluria, FluLaval, Fluzone, Fluvirin, Fluarix, Agriflu(>= 18 yo)) Fluzone (>3 yrs.) [[id number]] Influenza, seasonal, inject able Vital Signs Date [...] - Chem istry sodium, serum 139 mmol/L 430-620 9900/10/03 potassium, serum 4.7 mmol/L 3.5-5.2 chloride, serum 98 mmol/L 98-107 carbon dioxide, venous blood 28.7 mmol/L 21.0-32 .0 blood glucose 218 mg/dL 65-110 calcium, serum 9.8 mg/dL 8.5-10.1 urea nitrogen, blood 19 mg/dL 7-18 creatinine, serum 1.68 mg/dL 0.60-1.30 Lab Report: Basic Metabolic Panel, HGBA1 C - Chemistry sodium, serum 143 mmol/L 113-346 9878/06/19 potassium, serum 5.9 mmol/L 3.5-5.2 chloride, serum 105 mmol/L 98-107 carbon dioxide, venous blood 30.2 mmol/L 21.0-32 .0 blood glucose 189 mg/dL 65-110 calcium, serum 9.7 mg/dL 8.5-10.1 urea nitrogen, blood 37 mg/dL 7-18 creatinine, serum 2.11 mg/dL 0.55-1.30 hemoglobin A1C, blood, as % of total hemoglobin 8.2 % 4.3-6.0 Lab Report: CBC, Renal Panel - Chemistry sodium, serum 142 mmol/L 200-999 0747/08/11 potassium, serum 4.8 mmol/L 3.5-5.2 chloride, serum [...] Panel - Chemistry sodium, serum 143 mmol/L 512-692 6377/12/19 carbon dioxide, venous blood 32.5 mmol/L 21.0-32 .0 potassium, serum 4.9 mmol/L 3.5-5.2 chloride, serum 101 mmol/L 98-107 blood glucose 129 mg/dL 65-110 urea nitrogen, blood 18 mg/dL 7-18 creatinine, serum 1.79 mg/dL 0.55-1.30 alanine aminotransferase (SGPT), serum 34 U/L 12-78 aspartate aminotransferase (SGOT), serum 26 U/L 15-37 calcium, serum 8.9 mg/dL 8.5-10.1 bilirubin, serum, total 0.30 mg/dL 0.00-1.00 cholesterol, serum 214 mg/dL 229-496 3284/12/19 triglyceride, serum, fasting 351 mg/dL 30-200 HDL [...] 4.3-6.0 Encounters Code Encounter Date Provider Facility CPT-22511 Level 4 Est. Patient 12:25:11 CDT Baltazar Childers MD [facility]-30970 Level 4 Est. Patient 14:22:31 CDT Baltazar Childers MD [facility]-20809 Level 4 Est. Patient 15:44:38 CDT Shonna Elena CASTELLANOS [facility] CPT-90798 Level 4 Est. Patient 11:34:17 CDT Baltazar Childers MD [facility]-48758 Level 3 Est. Patient 16:40:40 CDT Baltazar Childers MD [facility]-22475 Level 4 Est. Patient 10:41:24 CDT Baltazar Childers MD [facility]-35076 Level 4 Est. Patient 16:01:48 CDT Baltazar Childers MD [facility]-00908 Level 4 Est. Patient 16:54:07 COURT INTERPRETER Baltazar Childers MD [facility]-58606 Level 4 Est. Patient 15:42:12 CDT Baltazar Childers MD [facility] CPT-10679 Level 4 Est. Patient 11:29:55 CDT Baltazar Childers MD [facility] [place]-23992 Level 4 Est. Patient 14:15:19 CDT Baltazar Childers MD [facility] CPT-89087 Level 4 Est. Patient 12:20:13 CDT Baltazar Childers MD [facility] CPT-64277 Level 4 Est. Patient 14:52:45 COURT INTERPRETER Baltazar Childers MD [facility] CPT-69320 Level 4 Est. Patient 14:18:34 COURT INTERPRETER Baltazar Childers MD [facility] [place]-18445 Level 4 Est. Patient 15:18:29 CDT Baltazar Childers MD [facility] CPT-18298 Level 3 Est. Patient 12:45:34 CDT Baltazar Childers MD [facility] CPT-25530 Level 3 Est. Patient 10:10:11 CDT Baltazar Childers MD [facility] CPT-24092 Level 3 Est. Patient 14:07:50 CDT Baltazar Childers MD [facility] CPT-93526 Level 4 Est. Patient 12:26:10 COURT INTERPRETER Baltazar Childers MD [facility] CPT-29684 Level 4 Est. Patient 14:45:38 CDT Baltazar Childers MD [facility] CPT-69801 Level 4 New Patient 12:30:48 CDT Baltazar hinton MD [facility] Procedures Code Procedure Name Date Entry Date Standard Desc ription CPT-71828 First Vx - Ix admin via ID I M or jet injects without counseling by physician 13:08:59 CDT CPT-99153 Fluzone Quadrivalent Intramuscular Suspe nsion 0.5 ML 13:08:59 CDT CPT-84478 Venipuncture Draw Fee 12:04:12 CDT CPT-10504 Lipid - LAB USE ONLY 17:39:15 COURT INTERPRETER 9 CPT-01309 HGBA1C - LAB USE ONLY 17:39:15 COURT INTERPRETER CPT-16956 CMP - LAB USE ONLY 17:39:14 COURT INTERPRETER CPT-43825 Venipuncture Draw Fee 17:39:14 COURT INTERPRETER CPT-78700 First Vx - Ix admin via ID I M or jet injects without counseling by physician 16:55:17 COURT INTERPRETER CPT-97743 Fluzone Quadrivalent Intramuscular Suspe nsion 0.5 ML 16:55:17 COURT INTERPRETER CPT-47986 Renal Panel - LAB USE ONLY 17:39:20 CDT 201 10/31/07 CPT-05565 CBC - LAB USE ONLY 17:39:20 CDT CPT-59391 Venipuncture Draw Fee 17:39:20 CDT CPT-22014 Venipuncture Draw Fee 14:33:30 CDT CPT-79904 Renal Panel - LAB USE ONLY 14:33:30 CDT 201 10/31/07 CPT-38584 CBC - LAB USE ONLY 14:33:29 CDT CPT-12226 Venipuncture Draw Fee 14:50:21 COURT INTERPRETER CPT-66572 Immunization Single Admin 17:35:35 CDT 2014 CPT-12519 Fluzone Quadrivalent preservative free ( >=3yrs.) 17:35:35 CDT CPT-78345 Venipuncture Draw Fee 12:10:27 COURT INTERPRETER CPT-38730 Fluzone Quadrivalent Intramuscular Suspe nsion 0.5 ML 10:49:13 CDT CPT-36223 First Vx Component - Ix admi n via ID IM or jet inj without physician counseling 15:17:19 COURT INTERPRETER CPT-07066 Pneumovax 23 15:17:19 COURT INTERPRETER CPT-21535 Pneumovax 14:52:45 COURT INTERPRETER CPT-87603 Venipuncture Draw Fee 14:06:30 COURT INTERPRETER CPT-000 Give Appropriate Flu Vaccine 14:18:34 COURT INTERPRETER 2 CPT-01153 Administration single or combination vac cine inc oral 14:46:00 COURT INTERPRETER CPT-85408 Influenza split virus > age 3 14:46:00 [address] INTERPRETER CPT-OV Office Visit 19:13:16 CDT CPT-94254 Zostavax 18:41:56 CDT CPT-31598 Administration single or combination vac cine inc oral 12:56:39 CDT CPT-04606 Zoster Vaccine (Zostavax) 12:56:39 CDT 2012 CPT-53346 Venipuncture Draw Fee 10:58:57 CDT CPT-79025 Sono pelvis non OB uterus ovaries cervix 17:45:04 CDT CPT-18541 Sono retroperitoneal complete kidneys an d bladder 17:14:36 CDT CPT-OV Office Visit 14:59:38 COURT INTERPRETER CPT-J1070 Depo Testosterone 100 mg 14:50:13 CDT 03/05 CPT-27673 Abx/Therapy Injection 14:50:13 CDT CPT-36757 Administration single or combination vac cine inc oral 14:34:43 CDT CPT-48851 Influenza split virus > age 3 14:34:43 CDT CPT-J1070 Depo Testosterone 100 mg 17:37:13 CDT 01/11 CPT-55717 Abx/Therapy Injection 17:37:13 CDT CPT-15310 Venipuncture Draw Fee 16:30:13 CDT CPT-80422 Venipuncture Draw Fee 16:29:43 CDT CPT-J1070 Depo Testosterone 100 mg 14:45:38 CDT 01/11
--- OUTSIDE RECORDS SUMMARY | 2019-10-27 12:30 | XMS REPORT | Clinical Summary ---
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 Benign neoplasm of colon PERIPHERAL NEUROPATHY [...] ronary atherosclerosis of unspecified type of vessel, [place] or graft OTH NONSPC ABN FINDNG [...] a day to coat the stomach SUCRALFATE 99834061498 Active Baltazar Childers MD Active PEN NEEDLES 31G X 6 MM MISC use 1 daily INSULIN PEN NEEDLE 79505713799 Active Martita Herbert RMA Active TOUJEO SOLOSTAR 300 UNIT/ML SC SOPN 10 units SC daily INSULIN GLARGINE 16677285979 No Longer Active Martita Herbert RMA Active LANTUS SOLOSTAR 100 UNIT/ML SC SOPN 10 units SC daily INSULIN GLARGINE 79188524721 Active KENDALL Juarez Active NAPROXEN SODIUM 220 MG ORAL TABS 1 three times a day as needed 2 NAPROXEN SODIUM 13785932088 No Longer Active Baltazar Childers MD Active ATORVASTATIN CALCIUM 20 MG ORAL TABS Take 1 tab daily ATORVASTATIN CALCIUM 94270696744 Active KENDALL Juarez Active FUROSEMIDE 40 MG TABS Take one by mouth daily FUROSEMIDE 84535238235 Active KENDALL Juarez Active LISINOPRIL 20 MG TABS Take one by mouth daily at bedtime LISINOPRIL 85663622350 Active Baltazar Childers MD Active ONETOUCH ULTRA BLUE STRP Test twice a day GLUCO SE BLOOD 81967057463 No Longer Active Baltazar Childers MD Active TRUEPLUS LANCETS 33G MISC Test twice a day LANCET S 49975190353 Active KENDALL Juarez Active TRUEDRAW LANCING DEVICE MISC Test twice a day L ANCET DEVICES 13825147232 Active Baltazar Childers MD Active TRUETRACK TEST STRP Test twice a day GLUCOSE BLOO D 49870671729 Active KENDALL Juarez Active TRUETRACK BLOOD GLUCOSE W/DEVICE KIT Test twice a day BLOOD GLUCOSE MONITORING SUPPL 99120720970 Active Baltazar Childers MD Activ e HYDROCODONE-ACETAMINOPHEN 7.5-325 MG TABS Take 1 tab every 6-8 hour s PRN HYDROCODONE-ACETAMINOPHEN 90221558183 Active Baltazar Childers MD Active NORTRIPTYLINE HCL 50 MG CAPS 1 every night for neuropathy 4 NORTRIPTYLINE HCL 16398878653 Active KENDALL Juarez Acti ve GABAPENTIN 300 MG CAPS 1 three times a day GABAPE NTIN 69234940419 Active Baltazar Childers MD Active GABAPENTIN 300 MG CAPS 1 po qd x 2 days, then 1 po BID x 2 d ays, then 1 po TID GABAPENTIN 09909627850 No Longer Active Baltazar silverman MD Active TRAMADOL HCL 50 MG TABS 1 twice a day as needed for pain TRAMADOL HCL 51645897491 Active Baltazar Childers MD Active NAPROXEN 500 MG TABS 1 tablet by mouth twice daily NAPROXEN 73589596833 No Longer Active Baltazar Childers MD Active PROAIR HFA 108 (90 BASE) MCG/ACT AERS 2 puffs four times a d ay as needed ALBUTEROL SULFATE 99943274819 Active Baltazar Childers MD Active DEPO-TESTOSTERONE 200 MG/ML OIL as directed RUFINO TOSTERONE CYPIONATE 79870725928 No Longer Active Baltazar Childers MD Active LIPITOR 20 MG TABS Take one by mouth daily in evening ATORVASTATIN CALCIUM 08469951305 No Longer Active Baltazar Childers MD Activ e CRESTOR 10 MG TABS 1 by mouth every day R OSUVASTATIN CALCIUM 43413300735 No Longer Active Baltazar Childers MD Activ e PHENTERMINE HCL 37.5 MG TABS Take one by mouth daily 2 PHENTERMINE HCL 32937966602 No Longer Active Baltazar Childers MD Activ e ROBAXIN-750 750 MG TABS Take one by mouth daily ME THOCARBAMOL 46093121265 Active Baltazar Childers MD Active TIZANIDINE HCL 4 MG TABS 1 daily as needed for muscle spasm 2011 TIZANIDINE HCL 89918110692 No Longer Active Dawna Salazar RN Active [id number] 50-325-40 MG TABS 1 four time s a day as needed for heacache [id number] 99919594257 Active Baltazar Childers MD Active SUMATRIPTAN SUCCINATE 100 MG TABS 1 tablet by mouth at onset of migraine as needed SUMATRIPTAN SUCCINATE 60146181353 Active Bella STEPHEN RN Active LORATADINE 10 MG TABS Take one by mouth daily LORATADINE 12749112880 Active Baltazar Childers MD Active OMEPRAZOLE 20 MG CPDR Take one by mouth daily OMEPRAZOLE 04573445028 Active Argentina Lyons Active HYDROXYZINE HCL 25 MG TABS Take one by mouth daily HYDROXYZINE HCL 44813646837 Active Baltazar Childers MD Active GLIPIZIDE 10 MG TABS 1 tablet by mouth twice daily GLIPIZIDE 84521395074 Active KENDALL Juarez Active ALPRAZOLAM 1 MG TABS 1 tablet by mouth daily at bedtime for restles s leg ALPRAZOLAM 99698411601 Active Baltazar Childers MD Active METFORMIN HCL 1000 MG TABS Take one by mouth twice daily METFORMIN HCL 77324553921 Active Baltazar Childers MD Active TIZANIDINE HCL 4 MG TABS 1 daily as needed for muscle spasm 2011 TIZANIDINE HCL 4 MG TABS 878712 TIZANIDINE HCL Inactiv e PHENTERMINE HCL 37.5 MG TABS Take one by mouth daily 2 PHENTERMINE HCL 37.5 MG TABS 300710 PHENTERMINE HCL Inactive CRESTOR 10 MG TABS 1 by mouth every day C RESTOR 10 MG TABS 037279 ROSUVASTATIN CALCIUM Inactive LIPITOR 20 MG TABS Take one by mouth daily in evening LIPITOR 20 MG TABS 067566 ATORVASTATIN CALCIUM Inactive DEPO-TESTOSTERONE 200 MG/ML OIL as directed 8 DEPO-TESTOSTERONE 200 MG/ML OIL 914450 TESTOSTERONE CYPIONATE Inactive NAPROXEN 500 MG TABS 1 tablet by mouth twice daily 201 07/27/22 NAPROXEN 500 MG TABS 637141 NAPROXEN Inactive GABAPENTIN 300 MG CAPS 1 po qd x 2 days, then 1 po BID x 2 d ays, then 1 po TID GABAPENTIN 300 MG CAPS 309231 GABAPENTIN Inact amie ONETOUCH ULTRA BLUE STRP Test twice a day ONETOUCH ULTRA BLUE STRP GLUCOSE BLOOD Inactive NAPROXEN SODIUM 220 MG ORAL TABS 1 three times a day as needed 2 NAPROXEN SODIUM 220 MG ORAL TABS 041508 NAPROXEN SODIUM Inactive TOUJEO SOLOSTAR 300 UNIT/ML [...] Fluarix, Agriflu(>= 18 yo)) Fluzone (>3 yrs.) [[id number]] Influenza, seasonal, inject able Seasonal influenza vaccine, injectable, containing preservative, for > 3 years old (Afluria, FluLaval, Fluzone, Fluvirin, Fluarix, Agriflu(>= 18 yo)) Fluzone (>3 yrs.) [[id number]] Influenza, seasonal, inject able Vital Signs Date [...] C - Chemistry sodium, serum 139 mmol/L 242-425 6124/07/07 potassium, serum 4.5 mmol/L 3.5-5.2 chloride, serum [...] 7.9 % 4.3-6.0 sodium, serum 139 mmol/L 361-009 1768/02/04 potassium, serum 5.4 mmol/L 3.5-5.2 chloride, serum [...] Panel - Chemistry sodium, serum 138 mmol/L 531-972 0756/11/23 carbon dioxide, venous blood 32.4 mmol/L 21.0-32 .0 potassium, serum 5.7 mmol/L 3.5-5.2 chloride, serum 98 mmol/L 98-107 blood glucose 136 mg/dL 65-110 urea nitrogen, blood 18 mg/dL 7-18 creatinine, serum 1.71 mg/dL 0.55-1.30 alanine aminotransferase (SGPT), serum 71 U/L 12-78 aspartate aminotransferase (SGOT), serum 34 U/L 15-37 calcium, serum 9.4 mg/dL 8.5-10.1 bilirubin, serum, total 0.40 mg/dL 0.00-1.00 cholesterol, serum 405 mg/dL 312-050 9768/11/23 triglyceride, serum, fasting 709 mg/dL 30-200 HDL [...] Panel - Chemistry sodium, serum 141 mmol/L 038-632 2609/08/08 potassium, serum 4.9 mmol/L 3.5-5.2 chloride, serum [...] mg/dL Encounters Code Encounter Date Provider Facility CPT-17516 Level 4 Est. Patient 11:34:17 CDT Baltazar Childers MD [facility] CPT-02842 Level 3 Est. Patient 16:40:40 CDT Baltazar Childers MD [facility] CPT-09828 Level 4 Est. Patient 10:41:24 CDT Baltazar Childers MD [facility] CPT-27639 Level 4 Est. Patient 16:01:48 CDT Baltazar Childers MD [facility] CPT-05277 Level 4 Est. Patient 16:54:07 GOLD BEATER Baltazar Chiledrs MD [facility] CPT-64168 Level 4 Est. Patient 15:42:12 CDT Baltazar Childers MD [facility] CPT-18987 Level 4 Est. Patient 11:29:55 CDT Baltazar Childers MD [facility] CPT-63444 Level 4 Est. Patient 14:15:19 CDT Baltazar Childers MD [facility] CPT-26175 Level 4 Est. Patient 12:20:13 CDT Baltazar Childers MD [facility] CPT-25785 Level 4 Est. Patient 14:52:45 GOLD BEATER Baltazar Childers MD [facility] CPT-75718 Level 4 Est. Patient 14:18:34 GOLD BEATER Baltazar Childers MD [facility] CPT-82767 Level 4 Est. Patient 15:18:29 CDT Baltazar Childers MD [facility] CPT-02856 Level 3 Est. Patient 12:45:34 CDT Baltazar Childers MD [facility] CPT-74520 Level 3 Est. Patient 10:10:11 CDT Baltazar Childers MD [facility] CPT-90801 Level 3 Est. Patient 14:07:50 CDT Baltazar Childers MD [facility] CPT-54866 Level 4 Est. Patient 12:26:10 GOLD BEATER Baltazar Childers MD [facility] CPT-01554 Level 4 Est. Patient 14:45:38 CDT Baltazar Childers MD [facility] CPT-86969 Level 4 New Patient 12:30:48 CDT Baltazar hinton MD [facility] Procedures Code Procedure Name Date Entry Date Standard Desc ription CPT-04200 Renal Panel - LAB USE ONLY 17:39:20 CDT 201 10/31/07 CPT-62497 CBC - LAB USE ONLY 17:39:20 CDT CPT-58655 Venipuncture Draw Fee 17:39:20 CDT CPT-67939 Venipuncture Draw Fee 14:33:30 CDT CPT-30318 Renal Panel - LAB USE ONLY 14:33:30 CDT 201 10/31/07 CPT-66801 CBC - LAB USE ONLY 14:33:29 CDT CPT-72352 Venipuncture Draw Fee 14:50:21 GOLD BEATER CPT-35994 Immunization Single Admin 17:35:35 CDT 2014 CPT-39519 Fluzone Quadrivalent preservative free ( >=3yrs.) 17:35:35 CDT CPT-54015 Venipuncture Draw Fee 12:10:27 GOLD BEATER CPT-39530 Fluzone Quadrivalent Intramuscular Suspe nsion 0.5 ML 10:49:13 CDT CPT-63500 First Vx Component - Ix admi n via ID IM or jet inj without physician counseling 15:17:19 GOLD BEATER CPT-94958 Pneumovax 15:17:19 GOLD BEATER CPT-57517 Pneumovax 14:52:45 GOLD BEATER CPT-94928 Venipuncture Draw Fee 14:06:30 GOLD BEATER CPT-000 Give Appropriate Flu Vaccine 14:18:34 GOLD BEATER 2 CPT-66645 Administration single or combination vac cine inc oral 14:46:00 GOLD BEATER CPT-51284 Influenza split virus > age 3 14:46:00 GOLD BEATER CPT-OV Office Visit 19:13:16 CDT CPT-52048 Zostavax 18:41:56 CDT CPT-45191 Administration single or combination vac cine inc oral 12:56:39 CDT CPT-77216 Zoster Vaccine (Zostavax) 12:56:39 CDT 2012 CPT-22576 Venipuncture Draw Fee 10:58:57 CDT CPT-35796 Sono pelvis non OB uterus ovaries cervix 17:45:04 CDT CPT-29169 Sono retroperitoneal complete kidneys an d bladder 17:14:36 CDT CPT-OV Office Visit 14:59:38 GOLD BEATER CPT-J1070 Depo Testosterone 100 mg 14:50:13 CDT 03/05 CPT-90242 Abx/Therapy Injection 14:50:13 CDT CPT-72468 Administration single or combination vac cine inc oral 14:34:43 CDT CPT-92998 Influenza split virus > age 3 14:34:43 CDT CPT-J1070 Depo Testosterone 100 mg 17:37:13 CDT 01/11 CPT-92575 Abx/Therapy Injection 17:37:13 CDT CPT-76500 Venipuncture Draw Fee 16:30:13 CDT CPT-25368 Venipuncture Draw Fee 16:29:43 CDT CPT-J1070 Depo Testosterone 100 mg 14:45:38 CDT 01/11
--- OUTSIDE RECORDS SUMMARY | 2019-10-27 12:30 | XMS REPORT | Clinical Summary ---
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 Benign neoplasm of colon PERIPHERAL NEUROPATHY [...] atherosclerosis of unspecified type of vessel, [place] or graft OTH NONSPC ABN FINDNG [...] Test twice a day GLUCO SE BLOOD 98594081088 No Longer Active Baltazar Childers MD Active TRUEPLUS LANCETS 33G MISC Test twice a day LANCET S 32458707420 Active Baltazar Childers MD Active TRUEDRAW LANCING DEVICE MISC Test twice a day L ANCET DEVICES 97158945564 Active Baltazar Childers MD Active TRUETRACK TEST STRP Test twice a day GLUCOSE BLOO D 55299555909 Active Baltazar Childers MD Active TRUETRACK BLOOD GLUCOSE W/DEVICE KIT Test twice a day BLOOD GLUCOSE MONITORING SUPPL 18113337652 Active Baltazar Childers MD Activ e HYDROCODONE-ACETAMINOPHEN 7.5-325 MG TABS Take 1 tab every 6-8 hour s PRN HYDROCODONE-ACETAMINOPHEN 03591428687 Active Gato Rae MD Active NORTRIPTYLINE HCL 50 MG CAPS 1 every night for neuropathy 4 NORTRIPTYLINE HCL 28446148301 Active Baltazar Childers MD Acti ve GABAPENTIN 300 MG CAPS 1 three times a day GABAPE NTIN 50720648770 Active Kelly Iraheta LPN Active GABAPENTIN 300 MG CAPS 1 po qd x 2 days, then 1 po BID x 2 d ays, then 1 po TID GABAPENTIN 22378026339 No Longer Active Baltazar silverman MD Active TRAMADOL HCL 50 MG TABS 1 twice a day as needed for pain TRAMADOL HCL 88493247817 Active Baltazar Childers MD Active NAPROXEN 500 MG TABS 1 tablet by mouth twice daily NAPROXEN 80800109408 No Longer Active Baltazar Childers MD Active PROAIR HFA 108 (90 BASE) MCG/ACT AERS 2 puffs four times a d ay as needed ALBUTEROL SULFATE 71339682849 Active Baltazar Childers MD Active DEPO-TESTOSTERONE 200 MG/ML OIL as directed RUFINO TOSTERONE CYPIONATE 65321840257 No Longer Active Baltazar Childers MD Active LIPITOR 20 MG TABS Take one by mouth daily in evening ATORVASTATIN CALCIUM 69246408756 No Longer Active Baltazar Childers MD Activ e CRESTOR 10 MG TABS 1 by mouth every day R OSUVASTATIN CALCIUM 91629836212 No Longer Active Baltazar Childers MD Activ e PHENTERMINE HCL 37.5 MG TABS Take one by mouth daily 2 PHENTERMINE HCL 56051141988 No Longer Active Baltazar Childers MD Activ e ROBAXIN-750 750 MG TABS Take one by mouth daily ME THOCARBAMOL 73383025383 Active Baltazar Childers MD Active TIZANIDINE HCL 4 MG TABS 1 daily as needed for muscle spasm 2011 TIZANIDINE HCL 27632600494 No Longer Active Dawna Salazar RN Active [id number] 50-325-40 MG TABS 1 four time s a day as needed for heacache [id number] 98267329547 Active Baltazar Childers MD Active SUMATRIPTAN SUCCINATE 100 MG TABS 1 tablet by mouth at onset of migraine as needed SUMATRIPTAN SUCCINATE 47919214178 Active Baltazar bynum MD Active LORATADINE 10 MG TABS Take one by mouth daily LORATADINE 20153612242 Active Baltazar Childers MD Active FUROSEMIDE 40 MG TABS Take one by mouth daily FUROSEMIDE 55883065911 Active Baltazar Childers MD Active LISINOPRIL 20 MG TABS Take one by mouth daily at bedtime LISINOPRIL 33439876001 Active Baltazar Childers MD Active OMEPRAZOLE 20 MG CPDR Take one by mouth daily OMEPRAZOLE 64674329669 Active Baltazar Childers MD Active HYDROXYZINE HCL 25 MG TABS Take one by mouth daily HYDROXYZINE HCL 98985315309 Active Dawna Lew Active GLIPIZIDE 10 MG TABS 1 tablet by mouth twice daily GLIPIZIDE 81521053043 Active Baltazar Childers MD Active ALPRAZOLAM 1 MG TABS 1 tablet by mouth daily at bedtime for restles s leg ALPRAZOLAM 18738485553 Active Baltazar Childers MD Active METFORMIN HCL 1000 MG TABS Take one by mouth twice daily METFORMIN HCL 74878771324 Active Baltazar Childers MD Active TIZANIDINE HCL 4 MG TABS 1 daily as needed for muscle spasm 2011 TIZANIDINE HCL 4 MG TABS 375452 TIZANIDINE HCL Inactiv e PHENTERMINE HCL 37.5 MG TABS Take one by mouth daily 2 PHENTERMINE HCL 37.5 MG TABS 190390 PHENTERMINE HCL Inactive CRESTOR 10 MG TABS 1 by mouth every day C RESTOR 10 MG TABS ROSUVASTATIN CALCIUM Inactive LIPITOR 20 MG TABS Take one by mouth daily in evening LIPITOR 20 MG TABS 155951 ATORVASTATIN CALCIUM Inactive DEPO-TESTOSTERONE 200 MG/ML OIL as directed 8 DEPO-TESTOSTERONE 200 MG/ML OIL 302392 TESTOSTERONE CYPIONATE Inactive NAPROXEN 500 MG TABS 1 tablet by mouth twice daily 201 07/27/22 NAPROXEN 500 MG TABS 835056 NAPROXEN Inactive GABAPENTIN 300 MG CAPS 1 po qd x 2 days, then 1 po BID x 2 d ays, then 1 po TID GABAPENTIN 300 MG CAPS 343126 GABAPENTIN Inact amie ONETOUCH ULTRA BLUE STRP Test twice a day ONETOUCH ULTRA BLUE STRP GLUCOSE BLOOD Inactive Immunizations Vaccine Administration Date Value Standard Floyd cription pneumococcal immunization administered Pneumovax 23 [CVX33] pneumococcal polysaccharide vaccine, 23 valent Seasonal influenza vaccine, injectable, containing preservative, for > 3 years old (Afluria, FluLaval, Fluzone, Fluvirin, Fluarix, Agriflu(>= 18 yo)) Fluzone (>3 yrs.) [[id number]] Influenza, seasonal, inject able Seasonal influenza vaccine, injectable, containing preservative, for > 3 years old (Afluria, FluLaval, Fluzone, Fluvirin, Fluarix, Agriflu(>= 18 yo)) Fluzone (>3 yrs.) [[id number]] Influenza, seasonal, inject able Vital Signs Date [...] - Chem istry sodium, serum 140 mmol/L 715-549 0607/05/05 potassium, serum 4.9 mmol/L 3.5-5.2 chloride, serum [...] Panel - Chemistry sodium, serum 139 mmol/L 226-190 3071/01/20 potassium, serum 5.3 mmol/L 3.5-5.2 chloride, serum [...] mg/g mg/g{creat} 0-29 cholesterol, serum 319 mg/dL 126-151 3573/08/21 triglyceride, serum, fasting 546 mg/dL 30-200 HDL cholesterol, serum 39 mg/dL 32-96 LDL cholesterol, serum 167.00 mg/dL 5.00-130.00 hemoglobin A1C, blood, as % of total hemoglobin 7.7 % 4.3-6.0 sodium, serum 138 mmol/L 892-490 5992/08/21 potassium, serum 4.3 mmol/L 3.5-5.2 chloride, serum [...] 0-19 Encounters Code Encounter Date Provider Facility CPT-27345 Level 4 Est. Patient 11:29:55 CDT Baltazar Childers MD [facility] CPT-73095 Level 4 Est. Patient 14:15:19 CDT Baltazar Childers MD [facility] CPT-43670 Level 4 Est. Patient 12:20:13 CDT Baltazar Childers MD [facility] CPT-39691 Level 4 Est. Patient 14:52:45 RAILROAD OPERATOR Baltazar Childers MD [facility] CPT-47585 Level 4 Est. Patient 14:18:34 RAILROAD OPERATOR Baltazar Childers MD [facility] CPT-00194 Level 4 Est. Patient 15:18:29 CDT Baltazar Childers MD [facility] CPT-89542 Level 3 Est. Patient 12:45:34 CDT Baltazar Childers MD [facility] CPT-62355 Level 3 Est. Patient 10:10:11 CDT Baltazar Childers MD [facility] CPT-91733 Level 3 Est. Patient 14:07:50 CDT Baltazar Childers MD [facility] CPT-93717 Level 4 Est. Patient 12:26:10 RAILROAD OPERATOR Baltazar Childers MD [facility] CPT-68511 Level 4 Est. Patient 14:45:38 CDT Baltazar Childers MD [facility] CPT-39185 Level 4 New Patient 12:30:48 CDT Baltazar hinton MD [facility] Procedures Code Procedure Name Date Entry Date Standard Desc ription CPT-82793 Venipuncture Draw Fee 12:10:27 RAILROAD OPERATOR CPT-26697 Fluzone Quadrivalent Intramuscular Suspe nsion 0.5 ML 10:49:13 CDT CPT-83343 First Vx Component - Ix admi n via ID IM or jet inj without physician counseling 15:17:19 RAILROAD OPERATOR CPT-30344 Pneumovax 23 15:17:19 RAILROAD OPERATOR CPT-53517 Pneumovax 14:52:45 RAILROAD OPERATOR CPT-84614 Venipuncture Draw Fee 14:06:30 RAILROAD OPERATOR CPT-000 Give Appropriate Flu Vaccine 14:18:34 RAILROAD OPERATOR 2 CPT-27239 Administration single or combination vac cine inc oral 14:46:00 RAILROAD OPERATOR CPT-60034 Influenza split virus > age 3 14:46:00 RAILROAD OPERATOR CPT-OV Office Visit 19:13:16 CDT CPT-14151 Zostavax 18:41:56 CDT CPT-14364 Administration single or combination vac cine inc oral 12:56:39 CDT CPT-97210 Zoster Vaccine (Zostavax) 12:56:39 CDT 2012 CPT-92287 Venipuncture Draw Fee 10:58:57 CDT CPT-40241 Sono pelvis non OB uterus ovaries cervix 17:45:04 CDT CPT-67769 Sono retroperitoneal complete kidneys an d bladder 17:14:36 CDT CPT-OV Office Visit 14:59:38 RAILROAD OPERATOR CPT-J1070 Depo Testosterone 100 mg 14:50:13 CDT 03/05 CPT-23129 Abx/Therapy Injection 14:50:13 CDT CPT-16155 Administration single or combination vac cine inc oral 14:34:43 CDT CPT-26716 Influenza split virus > age 3 14:34:43 CDT CPT-J1070 Depo Testosterone 100 mg 17:37:13 CDT 01/11 CPT-68115 Abx/Therapy Injection 17:37:13 CDT CPT-91992 Venipuncture Draw Fee 16:30:13 CDT CPT-95690 Venipuncture Draw Fee 16:29:43 CDT CPT-J1070 Depo Testosterone 100 mg 14:45:38 CDT 01/11
--- OUTSIDE RECORDS SUMMARY | 2019-10-27 12:30 | XMS REPORT | Clinical Summary ---
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 Benign neoplasm of colon PERIPHERAL NEUROPATHY 356.9 [...] y atherosclerosis of unspecified type of vessel, [place] or graft OTH NONSPC ABN FINDNG RAD&OTH [...] MISC Test twice a day LANCET S 25183564123 Active Baltazar Childers MD Active TRUEDRAW LANCING DEVICE MISC Test twice a day L ANCET DEVICES 02335239657 Active Baltazar Childers MD Active TRUETRACK TEST STRP Test twice a day GLUCOSE BLOO D 26596893077 Active Baltazar Childers MD Active TRUETRACK BLOOD GLUCOSE W/DEVICE KIT Test twice a day BLOOD GLUCOSE MONITORING SUPPL 04947306405 Active Bella Suarez APRN Active HYDROCODONE-ACETAMINOPHEN 7.5-325 MG TABS Take 1 tab every 6-8 hour s PRN HYDROCODONE-ACETAMINOPHEN 65498064695 Active Baltazar Childers MD Active NORTRIPTYLINE HCL 50 MG CAPS 1 every night for neuropathy 4 NORTRIPTYLINE HCL 42727269662 Active Bella Suarez APRN Active GABAPENTIN 300 MG CAPS 1 three times a day GABAPE NTIN 88994803692 Active Baltazar Childers MD Active GABAPENTIN 300 MG CAPS 1 po qd x 2 days, then 1 po BID x 2 d ays, then 1 po TID GABAPENTIN 70598129611 No Longer Active Baltazar silverman MD Active TRAMADOL HCL 50 MG TABS 1 twice a day as needed for pain TRAMADOL HCL 76142354243 Active Baltazar Childers MD Active NAPROXEN 500 MG TABS 1 tablet by mouth twice daily NAPROXEN 87344198545 No Longer Active Baltazar Childers MD Active PROAIR HFA 108 (90 BASE) MCG/ACT AERS 2 puffs four times a d ay as needed ALBUTEROL SULFATE 19970616437 Active Baltazar Childers MD Active DEPO-TESTOSTERONE 200 MG/ML OIL as directed RUFINO TOSTERONE CYPIONATE 45435212998 No Longer Active Baltazar Childers MD Active LIPITOR 20 MG TABS Take one by mouth daily in evening ATORVASTATIN CALCIUM 13570704966 No Longer Active Baltazar Childers MD Activ e CRESTOR 10 MG TABS 1 by mouth every day R OSUVASTATIN CALCIUM 58169126934 No Longer Active Baltazar Childers MD Activ e PHENTERMINE HCL 37.5 MG TABS Take one by mouth daily 2 PHENTERMINE HCL 02880414838 No Longer Active Baltazar Childers MD Activ e ROBAXIN-750 750 MG TABS Take one by mouth daily ME THOCARBAMOL 35195009819 Active Baltazar Childers MD Active TIZANIDINE HCL 4 MG TABS 1 daily as needed for muscle spasm 2011 TIZANIDINE HCL 70611652497 No Longer Active Dawna Salazar RN Active [employer] ULTRA BLUE STRP Test twice a day GLUCO SE BLOOD 54973498395 Active Baltazar Childers MD Active [id number] 50-325-40 MG TABS 1 four time s a day as needed for heacache [id number] 49950368222 Active Baltazar Childers MD Active SUMATRIPTAN SUCCINATE 100 MG TABS 1 tablet by mouth at onset of migraine as needed SUMATRIPTAN SUCCINATE 61924987222 Active Baltazar barron MD Active LORATADINE 10 MG TABS Take one by mouth daily LORATADINE 01282802128 Active Baltazar Childers MD Active FUROSEMIDE 40 MG TABS Take one by mouth daily FUROSEMIDE 55484452132 Active Baltazar Childers MD Active LISINOPRIL 20 MG TABS Take one by mouth daily at bedtime LISINOPRIL 09125191595 Active Bella Suarez APRN Active OMEPRAZOLE 20 MG CPDR Take one by mouth daily OMEPRAZOLE 51155782830 Active Baltazar Childers MD Active HYDROXYZINE HCL 25 MG TABS Take one by mouth daily HYDROXYZINE HCL 49927577198 Active Baltazar Childers MD Active GLIPIZIDE 10 MG TABS 1 tablet by mouth twice daily GLIPIZIDE 91761442980 Active Baltazar Childers MD Active ALPRAZOLAM 1 MG TABS 1 tablet by mouth daily at bedtime for restles s leg ALPRAZOLAM 92975782577 Active Baltazar Childers MD Active METFORMIN HCL 1000 MG TABS Take one by mouth twice daily METFORMIN HCL 17621778416 Active Bella Suarez APRN Active TIZANIDINE HCL 4 MG TABS 1 daily as needed for muscle spasm 2011 TIZANIDINE HCL 4 MG TABS 849495 TIZANIDINE HCL Inactiv e PHENTERMINE HCL 37.5 MG TABS Take one by mouth daily 2 PHENTERMINE HCL 37.5 MG TABS 989906 PHENTERMINE HCL Inactive CRESTOR 10 MG TABS 1 by mouth every day C RESTOR 10 MG TABS ROSUVASTATIN CALCIUM Inactive LIPITOR 20 MG TABS Take one by mouth daily in evening LIPITOR 20 MG TABS 090146 ATORVASTATIN CALCIUM Inactive DEPO-TESTOSTERONE 200 MG/ML OIL as directed 8 DEPO-TESTOSTERONE 200 MG/ML OIL 377001 TESTOSTERONE CYPIONATE Inactive NAPROXEN 500 MG TABS 1 tablet by mouth twice daily 201 07/27/22 NAPROXEN 500 MG TABS 439340 NAPROXEN Inactive GABAPENTIN 300 MG CAPS 1 po qd x 2 days, then 1 po BID x 2 d ays, then 1 po TID GABAPENTIN 300 MG CAPS 269568 GABAPENTIN Inact amie Immunizations Vaccine Administration Date Value Standard Floyd cription pneumococcal immunization administered Pneumovax 23 [CVX33] pneumococcal polysaccharide vaccine, 23 valent Seasonal influenza vaccine, injectable, containing preservative, for > 3 years old (Afluria, FluLaval, Fluzone, Fluvirin, Fluarix, Agriflu(>= 18 yo)) Fluzone (>3 yrs.) [[id number]] Influenza, seasonal, inject able Seasonal influenza vaccine, injectable, containing preservative, for > 3 years old (Afluria, FluLaval, Fluzone, Fluvirin, Fluarix, Agriflu(>= 18 yo)) Fluzone (>3 yrs.) [[id number]] Influenza, seasonal, inject able Vital Signs Date [...] Panel - Chemistry sodium, serum 139 mmol/L 496-229 0033/01/20 potassium, serum 5.3 mmol/L 3.5-5.2 chloride, serum [...] mg/g mg/g{creat} 0-29 cholesterol, serum 319 mg/dL 087-884 5158/08/21 triglyceride, serum, fasting 546 mg/dL 30-200 HDL cholesterol, serum 39 mg/dL 32-96 LDL cholesterol, serum 167.00 mg/dL 5.00-130.00 hemoglobin A1C, blood, as % of total hemoglobin 7.7 % 4.3-6.0 sodium, serum 138 mmol/L 908-646 1021/08/21 potassium, serum 4.3 mmol/L 3.5-5.2 chloride, serum [...] 0-19 Encounters Code Encounter Date Provider Facility CPT-07021 Level 4 Est. Patient 14:15:19 CDT Baltazar Childers MD [facility] CPT-57934 Level 4 Est. Patient 12:20:13 CDT Baltazar Childers MD [facility] CPT-74927 Level 4 Est. 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 Patient 14:18:34 VOCATIONAL REHABILITATION TEACHER Baltazar Childers MD [facility] CPT-52717 Level 4 Est. Patient 15:18:29 CDT Baltazar Childers MD [facility] CPT-41690 Level 3 Est. Patient 12:45:34 CDT Baltazar Childers MD [facility] CPT-24172 Level 3 Est. Patient 10:10:11 CDT Baltazar Childers MD [facility] CPT-34793 Level 3 Est. Patient 14:07:50 CDT Baltazar Childers MD [facility] CPT-11955 Level 4 Est. Patient 12:26:10 VOCATIONAL REHABILITATION TEACHER Baltazar Childers MD [facility] CPT-97771 Level 4 Est. Patient 14:45:38 CDT Baltazar Childers MD [facility] CPT-78353 Level 4 New Patient 12:30:48 CDT Baltazar hinton MD [facility] Procedures Code Procedure Name Date Entry Date Standard Desc ription CPT-68112 Venipuncture Draw Fee 12:10:27 VOCATIONAL REHABILITATION TEACHER CPT-50038 Fluzone Quadrivalent Intramuscular Suspe nsion 0.5 ML 10:49:13 CDT CPT-19853 First Vx Component - Ix admi n via ID IM or jet inj without physician counseling 15:17:19 VOCATIONAL REHABILITATION TEACHER CPT-94476 Pneumovax 23 15:17:19 VOCATIONAL REHABILITATION TEACHER CPT-78590 Pneumovax 14:52:45 VOCATIONAL REHABILITATION TEACHER CPT-03652 Venipuncture Draw Fee 14:06:30 VOCATIONAL REHABILITATION TEACHER CPT-000 Give Appropriate Flu Vaccine 14:18:34 VOCATIONAL REHABILITATION TEACHER 2 CPT-96002 Administration single or combination vac cine inc oral 14:46:00 VOCATIONAL REHABILITATION TEACHER CPT-62382 Influenza split virus > age 3 14:46:00 VOCATIONAL REHABILITATION TEACHER CPT-OV Office Visit 19:13:16 CDT CPT-70598 Zostavax 18:41:56 CDT CPT-47151 Administration single or combination vac cine inc oral 12:56:39 CDT CPT-46951 Zoster Vaccine (Zostavax) 12:56:39 CDT 2012 CPT-51447 Venipuncture Draw Fee 10:58:57 CDT CPT-25535 Sono pelvis non OB uterus ovaries cervix 17:45:04 CDT CPT-06275 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
--- OUTSIDE RECORDS SUMMARY | 2019-10-27 12:31 | XMS REPORT | Clinical Summary ---
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 Benign neoplasm of colon PERIPHERAL NEUROPATHY 356.9 [...] ronary atherosclerosis of unspecified type of vessel, [place] or graft OTH NONSPC ABN FINDNG RAD&OTH [...] 1 tablet daily for 4 days AZITHROMYCIN 71293331885 Active Baltazar Wayne Active LANTUS SOLOSTAR 100 UNIT/ML SC SOPN 30 units SC daily INSULIN GLARGINE 67937533024 Active Baltazar Childers MD Active AMLODIPINE BESYLATE 5 MG ORAL TABS 1 tab daily for HTN AMLODIPINE BESYLATE 06911700849 Active Baltazar Childers MD Active SYNTHROID 0.1 MG TAB 1 tablet by mouth daily LE VOTHYROXINE SODIUM 77275276771 Active Baltazar Childers MD Active GLIPIZIDE 10 MG TAB take 2 tablets twice daily GLIPIZIDE 54062043580 Active Baltazar Childers MD Active SUCRALFATE 1 GM TABS 1 four times a day to coat the stomach 2015 SUCRALFATE 36610810564 No Longer Active Baltazar Childers MD Active PEN NEEDLES 31G X 6 MM MISC use 1 daily INSULIN PEN NEEDLE 99542145695 Active Gato Rae MD Active TOUJEO SOLOSTAR 300 UNIT/ML SC SOPN 10 units SC daily INSULIN GLARGINE 97047552279 No Longer Active Martita ARGUETA Active NAPROXEN SODIUM 220 MG ORAL TABS 1 three times a day as needed 2 NAPROXEN SODIUM 00543338155 No Longer Active Baltazar Childers MD Active ATORVASTATIN CALCIUM 20 MG ORAL TABS Take 1 tab daily ATORVASTATIN CALCIUM 55677260275 Active Baltazar Childers MD Active FUROSEMIDE 40 MG TABS Take one by mouth daily FUROSEMIDE 14757330253 Active Baltazar Childers MD Active LISINOPRIL 20 MG TABS Take one by mouth daily at bedtime LISINOPRIL 50213674754 No Longer Active Baltazar Childers MD Active ONETOUCH ULTRA BLUE STRP Test twice a day GLUCO SE BLOOD 83066681173 No Longer Active Baltazar Childers MD Active TRUEPLUS LANCETS 33G MISC Test twice a day LANCET S 57002640114 Active KENDALL Juarez Active TRUEDRAW LANCING DEVICE MISC Test twice a day L ANCET DEVICES 97257434832 Active Baltazar Childers MD Active TRUETRACK TEST STRP Test twice a day GLUCOSE BLOO D 53654593419 Active KENDALL Juarez Active TRUETRACK BLOOD GLUCOSE W/DEVICE KIT Test twice a day BLOOD GLUCOSE MONITORING SUPPL 54900286612 Active Baltazar Childers MD Activ e HYDROCODONE-ACETAMINOPHEN 7.5-325 MG TABS Take 1 tab every 6-8 hour s PRN HYDROCODONE-ACETAMINOPHEN 28216701177 Active Baltazar Childers MD Active NORTRIPTYLINE HCL 50 MG CAPS 1 every night for neuropathy 4 NORTRIPTYLINE HCL 64521932000 Active Baltazar Childers MD Acti ve GABAPENTIN 300 MG CAPS 1 three times a day GABAPE NTIN 72791100169 Active Baltazar Childers MD Active GABAPENTIN 300 MG CAPS 1 po qd x 2 days, then 1 po BID x 2 d ays, then 1 po TID GABAPENTIN 33780428846 No Longer Active Baltazar silverman MD Active TRAMADOL HCL 50 MG TABS 1 twice a day as needed for pain TRAMADOL HCL 69037628334 Active Baltazar Childers MD Active NAPROXEN 500 MG TABS 1 tablet by mouth twice daily NAPROXEN 62684671486 No Longer Active Baltazar Childers MD Active PROAIR HFA 108 (90 BASE) MCG/ACT AERS 2 puffs four times a d ay as needed ALBUTEROL SULFATE 32040506219 Active Baltazar Childers MD Active DEPO-TESTOSTERONE 200 MG/ML OIL as directed RUFINO TOSTERONE CYPIONATE 72386121936 No Longer Active Baltazar Childers MD Active LIPITOR 20 MG TABS Take one by mouth daily in evening ATORVASTATIN CALCIUM 75273891138 No Longer Active Baltazar Childers MD Activ e CRESTOR 10 MG TABS 1 by mouth every day R OSUVASTATIN CALCIUM 72049985922 No Longer Active Baltazar Childers MD Activ e PHENTERMINE HCL 37.5 MG TABS Take one by mouth daily 2 PHENTERMINE HCL 30056645915 No Longer Active Baltazar Childers MD Activ e ROBAXIN-750 750 MG TABS Take one by mouth daily ME THOCARBAMOL 95407086449 Active Baltazar Childers MD Active TIZANIDINE HCL 4 MG TABS 1 daily as needed for muscle spasm 2011 TIZANIDINE HCL 26274920694 No Longer Active Dawnatung Salazar RN Active [id number] 50-325-40 MG TABS 1 four time s a day as needed for heacache [id number] 25168575330 Active Bethrenetta Carr KENDALL Active SUMATRIPTAN SUCCINATE 100 MG TABS 1 tablet by mouth at onset of migraine as needed SUMATRIPTAN SUCCINATE 42283225490 Active Baltazar bynum MD Active LORATADINE 10 MG TABS Take one by mouth daily LORATADINE 80103804311 Active Baltazar Childers MD Active OMEPRAZOLE 20 MG CPDR Take one by mouth daily OMEPRAZOLE 15357181710 Active Baltazar Childers MD Active HYDROXYZINE HCL 25 MG TABS Take one by mouth daily HYDROXYZINE HCL 58789735036 Active Baltazar Childers MD Active ALPRAZOLAM 1 MG TABS 1 tablet by mouth daily at bedtime for restles s leg ALPRAZOLAM 79816750417 Active Baltazar Childers MD Active METFORMIN HCL 1000 MG TABS Take one by mouth twice daily METFORMIN HCL 27331025171 Active Baltazar Childers MD Active TIZANIDINE HCL 4 MG TABS 1 daily as needed for muscle spasm 2011 TIZANIDINE HCL 4 MG TABS 554046 TIZANIDINE HCL Inactiv e PHENTERMINE HCL 37.5 MG TABS Take one by mouth daily 2 PHENTERMINE HCL 37.5 MG TABS 803076 PHENTERMINE HCL Inactive CRESTOR 10 MG TABS 1 by mouth every day C RESTOR 10 MG TABS 329343 ROSUVASTATIN CALCIUM Inactive LIPITOR 20 MG TABS Take one by mouth daily in evening LIPITOR 20 MG TABS 874942 ATORVASTATIN CALCIUM Inactive DEPO-TESTOSTERONE 200 MG/ML OIL as directed 8 DEPO-TESTOSTERONE 200 MG/ML OIL 830308 TESTOSTERONE CYPIONATE Inactive NAPROXEN 500 MG TABS 1 tablet by mouth twice daily 201 07/27/22 NAPROXEN 500 MG TABS 120307 NAPROXEN Inactive GABAPENTIN 300 MG CAPS 1 po qd x 2 days, then 1 po BID x 2 d ays, then 1 po TID GABAPENTIN 300 MG [facility] 345643 GABAPENTIN Inact amie ONETOUCH ULTRA BLUE STRP Test twice a day ONETOUCH ULTRA BLUE STRP GLUCOSE BLOOD Inactive NAPROXEN SODIUM 220 MG ORAL TABS 1 three times a day as needed 2 NAPROXEN SODIUM 220 MG ORAL TABS 673055 NAPROXEN SODIUM Inactive TOUJEO SOLOSTAR 300 UNIT/ML SC SOPN 10 units SC daily TOUJEO SOLOSTAR 300 UNIT/ML SC SOPN INSULIN GLARGINE Inac tive SUCRALFATE 1 GM TABS 1 four times a day to coat the stomach 2015 SUCRALFATE 1 GM TABS 069647 SUCRALFATE Inactive Immunizations Vaccine Administration Date Value Standard Floyd cription pneumococcal immunization administered Pneumovax 23 [CVX33] pneumococcal polysaccharide vaccine, 23 valent Seasonal influenza vaccine, injectable, containing preservative, for > 3 years old (Afluria, FluLaval, Fluzone, Fluvirin, Fluarix, Agriflu(>= 18 yo)) Fluzone (>3 yrs.) [[id number]] Influenza, seasonal, inject able Seasonal influenza vaccine, injectable, containing preservative, for > 3 years old (Afluria, FluLaval, Fluzone, Fluvirin, Fluarix, Agriflu(>= 18 yo)) Fluzone (>3 yrs.) [[id number]] Influenza, seasonal, inject able Vital Signs Date [...] C - Chemistry sodium, serum 143 mmol/L 901-508 0124/06/19 potassium, serum 5.9 mmol/L 3.5-5.2 chloride, serum 105 mmol/L 98-107 carbon dioxide, venous blood 30.2 mmol/L 21.0-32 .0 blood glucose 189 mg/dL 65-110 calcium, serum 9.7 mg/dL 8.5-10.1 urea nitrogen, blood 37 mg/dL 7-18 creatinine, serum 2.11 mg/dL 0.55-1.30 hemoglobin A1C, blood, as % of total hemoglobin 8.2 % 4.3-6.0 Lab Report: CBC, Renal Panel - Chemistry sodium, serum 142 mmol/L 926-373 5077/08/11 potassium, serum 4.8 mmol/L 3.5-5.2 chloride, serum [...] Panel - Chemistry sodium, serum 143 mmol/L 539-543 0713/12/19 carbon dioxide, venous blood 32.5 mmol/L 21.0-32 .0 potassium, serum 4.9 mmol/L 3.5-5.2 chloride, serum 101 mmol/L 98-107 blood glucose 129 mg/dL 65-110 urea nitrogen, blood 18 mg/dL 7-18 creatinine, serum 1.79 mg/dL 0.55-1.30 alanine aminotransferase (SGPT), serum 34 U/L 12-78 aspartate aminotransferase (SGOT), serum 26 U/L 15-37 calcium, serum 8.9 mg/dL 8.5-10.1 bilirubin, serum, total 0.30 mg/dL 0.00-1.00 cholesterol, serum 214 mg/dL 302-280 8481/12/19 triglyceride, serum, fasting 351 mg/dL 30-200 HDL [...] 4.3-6.0 Encounters Code Encounter Date Provider Facility CPT-42601 Level 4 Est. Patient 12:25:11 CDT Baltazar Childers MD [facility] CPT-44874 Level 4 Est. Patient 14:22:31 CDT Baltazar Childers MD [facility] CPT-85845 Level 4 Est. Patient 15:44:38 CDT Shonna Parker APRN [facility] CPT-72135 Level 4 Est. Patient 11:34:17 CDT Baltazar Childers MD [facility] CPT-32788 Level 3 Est. Patient 16:40:40 CDT Baltazar Childers MD [facility] CPT-68465 Level 4 Est. Patient 10:41:24 CDT Baltazar Childers MD [facility] CPT-87892 Level 4 Est. Patient 16:01:48 CDT Baltazar Childers MD [facility] CPT-85100 Level 4 Est. Patient 16:54:07 SHEET TURNER Baltazar Childers MD [facility] CPT-67685 Level 4 Est. Patient 15:42:12 CDT Baltazar Childers MD [facility] CPT-42877 Level 4 Est. Patient 11:29:55 CDT Baltazar Childers MD [facility] CPT-18991 Level 4 Est. Patient 14:15:19 CDT Baltazar Childers MD [facility] CPT-75396 Level 4 Est. Patient 12:20:13 CDT Baltazar Childers MD [facility] CPT-68712 Level 4 Est. Patient 14:52:45 SHEET TURNER Baltazar Childers MD [facility] CPT-83552 Level 4 Est. Patient 14:18:34 SHEET TURNER Baltazar Childers MD [facility] CPT-60781 Level 4 Est. Patient 15:18:29 CDT Baltazar Childers MD [facility] CPT-93385 Level 3 Est. Patient 12:45:34 CDT Baltazar Childers MD [facility] CPT-76845 Level 3 Est. Patient 10:10:11 CDT Baltazar Childers MD [facility] CPT-09261 Level 3 Est. Patient 14:07:50 CDT Baltazar Childers MD [facility] CPT-37797 Level 4 Est. Patient 12:26:10 SHEET TURNER Baltazar Childers MD [facility] CPT-33956 Level 4 Est. Patient 14:45:38 CDT Baltazar Childers MD [facility] CPT-46746 Level 4 New Patient 12:30:48 CDT Baltazar hinton MD [facility] Procedures Code Procedure Name Date Entry Date Standard Desc ription CPT-09655 Venipuncture Draw Fee 12:04:12 CDT CPT-85200 Lipid - LAB USE ONLY 17:39:15 SHEET TURNER 9 CPT-07843 HGBA1C - LAB USE ONLY 17:39:15 SHEET TURNER CPT-00065 CMP - LAB USE ONLY 17:39:14 SHEET TURNER CPT-08172 Venipuncture Draw Fee 17:39:14 SHEET TURNER CPT-41785 First Vx - Ix admin via ID I M or jet injects without counseling by physician 16:55:17 SHEET TURNER CPT-17503 Fluzone Quadrivalent Intramuscular Suspe nsion 0.5 ML 16:55:17 SHEET TURNER CPT-35451 Renal Panel - LAB USE ONLY 17:39:20 CDT 201 10/31/07 CPT-48085 CBC - LAB USE ONLY 17:39:20 CDT CPT-14418 Venipuncture Draw Fee 17:39:20 CDT CPT-30058 Venipuncture Draw Fee 14:33:30 CDT CPT-11444 Renal Panel - LAB USE ONLY 14:33:30 CDT 201 10/31/07 CPT-67648 CBC - LAB USE ONLY 14:33:29 CDT CPT-67702 Venipuncture Draw Fee 14:50:21 SHEET TURNER CPT-82610 Immunization Single Admin 17:35:35 CDT 2014 CPT-39616 Fluzone Quadrivalent preservative free ( >=3yrs.) 17:35:35 CDT CPT-23965 Venipuncture Draw Fee 12:10:27 SHEET TURNER CPT-49684 Fluzone Quadrivalent Intramuscular Suspe nsion 0.5 ML 10:49:13 CDT CPT-85390 First Vx Component - Ix admi n via ID IM or jet inj without physician counseling 15:17:19 SHEET TURNER CPT-12022 Pneumovax 23 15:17:19 SHEET TURNER CPT-28477 Pneumovax 14:52:45 SHEET TURNER CPT-94231 Venipuncture Draw Fee 14:06:30 SHEET TURNER CPT-000 Give Appropriate Flu Vaccine 14:18:34 SHEET TURNER 2 CPT-80587 Administration single or combination vac cine inc oral 14:46:00 SHEET TURNER CPT-38320 Influenza split virus > age 3 14:46:00 SHEET TURNER CPT-OV Office Visit 19:13:16 CDT CPT-10329 Zostavax 18:41:56 CDT CPT-53004 Administration single or combination vac cine inc oral 12:56:39 CDT CPT-30997 Zoster Vaccine (Zostavax) 12:56:39 CDT 2012 CPT-68435 Venipuncture Draw Fee 10:58:57 CDT CPT-13853 Sono pelvis non OB uterus ovaries cervix 17:45:04 CDT CPT-62980 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
--- OUTSIDE RECORDS SUMMARY | 2019-10-27 12:31 | XMS REPORT | Clinical Summary ---
Author Author Abhishek, Elba Lance [facility] Address Unknown Phone Unavailable Allergies, Adverse Reactions, Alerts Allergy Name Reaction Description Start Date Severity Status Pr ovider ASPIRIN Critical Active Baltazar barron MD PENICILLIN yeast infection Critical Active Baltazar Childers MD FISH Critical Active Baltazar barron MD CODEINE Critical Active Baltazar barrno MD Conditions or Problems Problem Name Problem [...] Decreased libido COLON POLYPS 211.3 Resolved Lolis [facility] Benign neoplasm of colon PERIPHERAL NEUROPATHY [...] of kidney and ureter CAD 414.00 Active lGadys Arce [facility] ronary atherosclerosis of unspecified type of vessel, wiyot or graft OTH NONSPC ABN FINDNG RAD&OTH [...] MISC Test twice a day LANCET S 72407870895 Active Baltazar Childres MD Active TRUEDRAW LANCING DEVICE MISC Test twice a day L ANCET DEVICES 36850726291 Active Baltazar Childers MD Active TRUETRACK TEST STRP Test twice a day GLUCOSE BLOO D 12270557357 Active Baltazar Childers MD Active TRUETRACK BLOOD GLUCOSE W/DEVICE KIT Test twice a day BLOOD GLUCOSE MONITORING SUPPL 64176906465 Active Bella Suarez [facility] Active HYDROCODONE-ACETAMINOPHEN 7.5-325 MG TABS Take 1 tab every 6-8 hour s PRN HYDROCODONE-ACETAMINOPHEN 93611544708 Active Baltazar Childers MD Active NORTRIPTYLINE HCL 50 MG CAPS 1 every night for neuropathy 4 NORTRIPTYLINE HCL 84964452642 Active Baltazar Childers MD Acti ve GABAPENTIN 300 MG CAPS 1 three times a day GABAPE NTIN 51274094992 Active Baltazar Childers MD Active GABAPENTIN 300 MG CAPS 1 po qd x 2 days, then 1 po BID x 2 d ays, then 1 po TID GABAPENTIN 08025353459 No Longer Active Baltazar silverman MD Active TRAMADOL HCL 50 MG TABS 1 twice a day as needed for pain TRAMADOL HCL 73543584690 Active Baltazar Childers MD Active NAPROXEN 500 MG TABS 1 tablet by mouth twice daily NAPROXEN 07096785029 No Longer Active Baltazar Childers MD Active PROAIR HFA 108 (90 BASE) MCG/ACT AERS 2 puffs four times a d ay as needed ALBUTEROL SULFATE 50490387349 Active Baltazar Childers MD Active DEPO-TESTOSTERONE 200 MG/ML OIL as directed RUFINO TOSTERONE CYPIONATE 55433195259 No Longer Active Baltazar Childers MD Active LIPITOR 20 MG TABS Take one by mouth daily in evening ATORVASTATIN CALCIUM 14487385502 No Longer Active Baltazar Childers MD Activ e CRESTOR 10 MG TABS 1 by mouth every day R OSUVASTATIN CALCIUM 04937798570 No Longer Active Baltazar Childers MD Activ e PHENTERMINE HCL 37.5 MG TABS Take one by mouth daily 2 PHENTERMINE HCL 69360049410 No Longer Active Baltazar Childers MD Activ e ROBAXIN-750 750 MG TABS Take one by mouth daily ME THOCARBAMOL 14348920329 Active Baltazar Childers MD Active TIZANIDINE HCL 4 MG TABS 1 daily as needed for muscle spasm 2011 TIZANIDINE HCL 29220035489 No Longer Active Dawna Salazar RN Active ONETOUCH ULTRA BLUE STRP Test twice a day GLUCO SE BLOOD 00851594832 Active Baltazar Childers MD Active [id number]-[id number] 50-325-40 MG TABS 1 four time s a day as needed for heacache [id number] 74288867673 Active Baltazar Childers MD Active SUMATRIPTAN SUCCINATE 100 MG TABS 1 tablet by mouth at onset of migraine as needed SUMATRIPTAN SUCCINATE 13088964629 Active Baltazar barron MD Active LORATADINE 10 MG TABS Take one by mouth daily LORATADINE 02235553532 Active Baltazar Childers MD Active FUROSEMIDE 40 MG TABS Take one by mouth daily FUROSEMIDE 58969704047 Active Baltazar Childers MD Active LISINOPRIL 20 MG TABS Take one by mouth daily at bedtime LISINOPRIL 66957889631 Active Baltazar Childesr MD Active OMEPRAZOLE 20 MG CPDR Take one by mouth daily OMEPRAZOLE 88183283261 Active Baltazar Childers MD Active HYDROXYZINE HCL 25 MG TABS Take one by mouth daily HYDROXYZINE HCL 88221971799 Active Baltazar Childers MD Active GLIPIZIDE 10 MG TABS 1 tablet by mouth twice daily GLIPIZIDE 30261526089 Active Baltazar Childers MD Active ALPRAZOLAM 1 MG TABS 1 tablet by mouth daily at bedtime for restles s leg ALPRAZOLAM 39779345537 Active Baltazar Childers MD Active METFORMIN HCL 1000 MG TABS Take one by mouth twice daily METFORMIN HCL 27659082505 Active Baltazar Childers MD Active TIZANIDINE HCL 4 MG TABS 1 daily as needed for muscle spasm 2011 TIZANIDINE HCL 4 MG TABS 144921 TIZANIDINE HCL Inactiv e PHENTERMINE HCL 37.5 MG TABS Take one by mouth daily 2 PHENTERMINE HCL 37.5 MG TABS 207191 PHENTERMINE HCL Inactive CRESTOR 10 MG TABS 1 by mouth every day C RESTOR 10 MG TABS ROSUVASTATIN CALCIUM Inactive LIPITOR 20 MG TABS Take one by mouth daily in evening LIPITOR 20 MG TABS 913312 ATORVASTATIN CALCIUM Inactive DEPO-TESTOSTERONE 200 MG/ML OIL as directed 8 DEPO-TESTOSTERONE 200 MG/ML OIL 402526 TESTOSTERONE CYPIONATE Inactive NAPROXEN 500 MG TABS 1 tablet by mouth twice daily 201 07/27/22 NAPROXEN 500 MG TABS 899443 NAPROXEN Inactive GABAPENTIN 300 MG CAPS 1 po qd x 2 days, then 1 po BID x 2 d ays, then 1 po TID GABAPENTIN 300 MG CAPS 553251 GABAPENTIN Inact amie Immunizations Vaccine Administration Date Value Standard Floyd cription pneumococcal immunization administered Pneumovax 23 [CVX33] pneumococcal polysaccharide vaccine, 23 valent Seasonal influenza vaccine, injectable, containing preservative, for > 3 years old (Afluria, FluLaval, Fluzone, Fluvirin, Fluarix, Agriflu(>= 18 yo)) Fluzone (>3 yrs.) [UPN029] Influenza, seasonal, inject able Seasonal influenza vaccine, injectable, containing preservative, for > 3 years old (Afluria, FluLaval, Fluzone, Fluvirin, Fluarix, Agriflu(>= 18 yo)) Fluzone (>3 yrs.) [SXE313] Influenza, seasonal, inject able Vital Signs Date [...] - Chem istry sodium, serum 140 mmol/L 587-997 7814/05/05 potassium, serum 4.9 mmol/L 3.5-5.2 chloride, serum [...] Panel - Chemistry sodium, serum 139 mmol/L 209-854 6931/01/20 potassium, serum 5.3 mmol/L 3.5-5.2 chloride, serum [...] mg/g mg/g{creat} 0-29 cholesterol, serum 319 mg/dL 279-219 2509/08/21 triglyceride, serum, fasting 546 mg/dL 30-200 HDL cholesterol, serum 39 mg/dL 32-96 LDL cholesterol, serum 167.00 mg/dL 5.00-130.00 hemoglobin A1C, blood, as % of total hemoglobin 7.7 % 4.3-6.0 sodium, serum 138 mmol/L 132-851 6066/08/21 potassium, serum 4.3 mmol/L 3.5-5.2 chloride, serum [...] 0-19 Encounters Code Encounter Date Provider Facility CPT-88745 Level 4 Est. Patient 11:29:55 CDT Baltazar Childers MD [facility] CPT-76081 Level 4 Est. Patient 14:15:19 CDT Baltazar Childers MD [facility] CPT-29554 Level 4 Est. Patient 12:20:13 CDT Baltazar Childers MD [facility] CPT-17290 Level 4 Est. 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 Patient 14:18:34 FLOUR BLENDER HELPER Baltazar Childers MD [facility] CPT-07999 Level 4 Est. Patient 15:18:29 CDT Baltazar Childers MD [facility] CPT-10817 Level 3 Est. Patient 12:45:34 CDT Baltazar Childers MD [facility] CPT-51425 Level 3 Est. Patient 10:10:11 CDT Baltazar Childers MD [facility] CPT-72517 Level 3 Est. Patient 14:07:50 CDT Baltazar Childers MD [facility] CPT-57613 Level 4 Est. Patient 12:26:10 FLOUR BLENDER HELPER Baltazar Childers MD [facility] CPT-75597 Level 4 Est. Patient 14:45:38 CDT Baltazar Childers MD [facility] CPT-74224 Level 4 New Patient 12:30:48 CDT Baltazar hinton MD [facility] Procedures Code Procedure Name Date Entry Date Standard Desc ription CPT-28055 Venipuncture Draw Fee 12:10:27 FLOUR BLENDER HELPER CPT-11285 Fluzone Quadrivalent Intramuscular Suspe nsion 0.5 ML 10:49:13 CDT CPT-17851 First Vx Component - Ix admi n via ID IM or jet inj without physician counseling 15:17:19 FLOUR BLENDER HELPER CPT-41853 Pneumovax 15:17:19 FLOUR BLENDER HELPER CPT-00525 Pneumovax 14:52:45 FLOUR BLENDER HELPER CPT-29577 Venipuncture Draw Fee 14:06:30 FLOUR BLENDER HELPER CPT-000 Give Appropriate Flu Vaccine 14:18:34 FLOUR BLENDER HELPER 2 CPT-84840 Administration single or combination vac cine inc oral 14:46:00 FLOUR BLENDER HELPER CPT-65751 Influenza split virus > age 3 14:46:00 FLOUR BLENDER HELPER CPT-OV Office Visit 19:13:16 CDT CPT-65365 Zostavax 18:41:56 CDT CPT-04659 Administration single or combination vac cine inc oral 12:56:39 CDT CPT-58749 Zoster Vaccine (Zostavax) 12:56:39 CDT 2012 CPT-70298 Venipuncture Draw Fee 10:58:57 CDT CPT-29867 Sono pelvis non OB uterus ovaries cervix 17:45:04 CDT CPT-30578 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
--- OUTSIDE RECORDS SUMMARY | 2019-10-27 12:31 | XMS REPORT | Clinical Summary ---
Author Author Admin, Elba Lance [facility] Address Unknown Phone Unavailable Allergies, Adverse 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 [facility] LINER Benign neoplasm of colon PERIPHERAL NEUROPATHY 356.9 [...] ronary atherosclerosis of unspecified type of vessel, [place] or graft OTH NONSPC ABN FINDNG RAD&OTH [...] 1 tablet daily for 4 days AZITHROMYCIN 01309306452 No Longer A ctive Baltazar Childers MD Active LANTUS SOLOSTAR 100 UNIT/ML SUBCUTANEOUS SOLUTION PEN- INJECTOR 30 units SC daily INSULIN GLARGINE 37620824541 Active Baltazar Childers MD Active AMLODIPINE BESYLATE 5 MG ORAL TABLET 1 tab daily for HTN AMLODIPINE BESYLATE 44891477040 Active Baltazar Childers MD Active SYNTHROID 100 MCG ORAL TABLET 1 tablet by mouth daily LEVOTHYROXINE SODIUM 35391684517 Active Baltazar Childers MD Active GLIPIZIDE 10 MG ORAL TABLET take 2 tablets twice daily GLIPIZIDE 24757174978 Active Baltazar Childers MD Active SUCRALFATE 1 GM ORAL TABLET 1 four times a day to coat the stoma ch SUCRALFATE 24543927957 No Longer Active Baltazar Childers MD Active PEN NEEDLES 31G X 6 MM use 1 daily INSULIN PEN NE EDLE 53043008104 Active KENDALL Juarez Active TOUJEO SOLOSTAR 300 UNIT/ML SUBCUTANEOUS SOLUTION PEN- INJECTOR 10 units SC daily INSULIN GLARGINE 45158272681 No Longer Active Rola ARGUETA Active NAPROXEN SODIUM 220 MG ORAL TABLET 1 three times a day as needed NAPROXEN SODIUM 72373278564 No Longer Active Baltazar Childers MD Active ATORVASTATIN CALCIUM 20 MG ORAL TABLET Take 1 tab daily ATORVASTATIN CALCIUM 72499227824 Active Baltazar Childers MD A ctive FUROSEMIDE 40 MG ORAL TABLET Take one by mouth daily FUROSEMIDE 11028852511 Active Jessy Arellano LPN Active LISINOPRIL 20 MG ORAL TABLET Take one by mouth daily at bedtime LISINOPRIL 97905347456 No Longer Active Baltazar Childers MD Active ONETOUCH ULTRA BLUE IN VITRO STRIP Test twice a day 07/11/11 GLUCOSE BLOOD 23700475832 No Longer Active Baltazar Childers MD Acti ve TRUEPLUS LANCETS 33G Test twice a day LANCETS 3584355 8245 Active KENDALL Juarez Active TRUEDRAW LANCING DEVICE Test twice a day LANCET DEVICES 10463783597 Active Baltazar Childers MD Active TRUETRACK TEST IN VITRO STRIP Test twice a day GLUCOSE BLOOD 84046536450 Active KENDALL Juarez Active TRUETRACK BLOOD GLUCOSE w/Device KIT Test twice a day BLOOD GLUCOSE MONITORING SUPPL 18674071855 Active Baltazar Childers MD Activ e HYDROCODONE-ACETAMINOPHEN 7.5-325 MG ORAL TABLET Take 1 tab every 6-8 hours PRN HYDROCODONE-ACETAMINOPHEN 39610599163 Active Baltazar Nickerson MD Active NORTRIPTYLINE HCL 50 MG ORAL CAPSULE 1 every night for neuropathy 2 NORTRIPTYLINE HCL 68027209539 Active Baltazar Childers MD Acti ve GABAPENTIN 300 MG ORAL CAPSULE 1 three times a day GABAPENTIN 75760629464 Active Baltazar Childers MD Active GABAPENTIN 300 MG ORAL CAPSULE 1 po qd x 2 days, then 1 po BID x 2 days, then 1 po TID GABAPENTIN 45631167651 No Longer Active Baltazar Childers MD Active TRAMADOL HCL 50 MG ORAL TABLET 1 twice a day as needed for pain 201 07/27/28 TRAMADOL HCL 14336691697 Active Baltazar Childers MD Active NAPROXEN 500 MG ORAL TABLET 1 tablet by mouth twice daily NAPROXEN 46428751070 No Longer Active Baltazar Childers MD Active PROAIR HFA 108 (90 Base) MCG/ACT INHALATION AEROSOL SO LUTION 2 puffs four times a day as needed ALBUTEROL SULFATE 23563151432 Active Paul Childers MD Active DEPO-TESTOSTERONE 200 MG/ML INTRAMUSCULAR SOLUTION as directed TESTOSTERONE CYPIONATE 77441570836 No Longer Active Baltazar Childers MD Active LIPITOR 20 MG ORAL TABLET Take one by mouth daily in evening ATORVASTATIN CALCIUM 16663988910 No Longer Active Baltazar Childers MD Active CRESTOR 10 MG ORAL TABLET 1 by mouth every day ROSUVASTATIN CALCIUM 38886139194 No Longer Active Baltazar Childers MD Active PHENTERMINE HCL 37.5 MG ORAL TABLET Take one by mouth daily PHENTERMINE HCL 95989179797 No Longer Active Baltazar Childers MD Ac tive ROBAXIN-750 750 MG ORAL TABLET Take one by mouth daily METHOCARBAMOL 24415433486 Active Baltazar Childers MD Active TIZANIDINE HCL 4 MG ORAL TABLET 1 daily as needed for muscle spa sm TIZANIDINE HCL 39310624743 No Longer Active Dawna Salazar RN Active YISFCAIOVX-[id number] 50-325-40 MG ORAL TABLET 1 fo ur times a day as needed for heacache [id number] 61367003493 Active KENDALL Juarez Active SUMATRIPTAN SUCCINATE 100 MG ORAL TABLET 1 tablet by m outh at onset of migraine as needed SUMATRIPTAN SUCCINATE 78145660526 Active Baltazar Nickerson MD Active LORATADINE 10 MG ORAL TABLET Take one by mouth daily LORATADINE 38264932424 Active Baltazar Childers MD Active OMEPRAZOLE 20 MG ORAL CAPSULE DELAYED RELEASE Take one by mouth jostin ly OMEPRAZOLE 18667837487 Active Baltazar Childers MD Active HYDROXYZINE HCL 25 MG ORAL TABLET Take one by mouth daily HYDROXYZINE HCL 73328382960 Active Baltazar Childers MD Active ALPRAZOLAM 1 MG ORAL TABLET 1 tablet by mouth daily at bedti ca for restless leg ALPRAZOLAM 71103288095 Active Baltazar Childers MD Active METFORMIN HCL 1000 MG ORAL TABLET Take one by mouth twice daily METFORMIN HCL 57264465564 Active Baltazar Childers MD Active TIZANIDINE HCL 4 MG ORAL TABLET 1 daily as needed for muscle spa sm TIZANIDINE HCL 4 MG ORAL TABLET 243823 TIZANIDINE HCL Inactive PHENTERMINE HCL 37.5 MG ORAL TABLET Take one by mouth daily PHENTERMINE HCL 37.5 MG ORAL TABLET 004091 PHENTERMINE HCL Inac tive CRESTOR 10 MG ORAL TABLET 1 by mouth every day CRESTOR 10 MG ORAL TABLET 885227 ROSUVASTATIN CALCIUM Inactive LIPITOR 20 MG ORAL TABLET Take one by mouth daily in evening LIPITOR 20 MG ORAL TABLET 131722 ATORVASTATIN CALCIUM Inactive DEPO-TESTOSTERONE 200 MG/ML INTRAMUSCULAR SOLUTION as directed DEPO-TESTOSTERONE 200 MG/ML INTRAMUSCULAR SOLUTION 132580 RUFINO TOSTERONE CYPIONATE Inactive NAPROXEN 500 MG ORAL TABLET 1 tablet by mouth twice daily NAPROXEN 500 MG ORAL TABLET 577992 NAPROXEN Inactive GABAPENTIN 300 MG ORAL CAPSULE 1 po qd x 2 days, then 1 po BID x 2 days, then 1 po TID GABAPENTIN 300 MG ORAL CAPSULE 091986 GABAP ENTIN Inactive ONETOUCH ULTRA BLUE IN VITRO STRIP Test twice a day 07/11/11 ONETOUCH ULTRA BLUE IN VITRO STRIP GLUCOSE BLOOD Inact amie NAPROXEN SODIUM 220 MG ORAL TABLET 1 three times a day as needed NAPROXEN SODIUM 220 MG ORAL TABLET 278639 NAPROXEN SODI UM Inactive TOUJEO SOLOSTAR 300 UNIT/ML SUBCUTANEOUS SOLUTION PEN- INJECTOR 10 units SC daily TOUJEO SOLOSTAR 300 UNIT/ML SUBCUTANEOUS SOLUTION PEN-INJECTOR INSULIN GLARGINE Inactive SUCRALFATE 1 GM ORAL TABLET 1 four times a day to coat the stoma ch SUCRALFATE 1 GM ORAL TABLET 649026 SUCRALFATE Inac tive ZITHROMAX Z-ISAIAS 250 MG ORAL TABLET Take two tablets to day and then 1 tablet daily for 4 days ZITHROMAX Z-ISAIAS 250 MG ORAL TAB LET 631076 AZITHROMYCIN Inactive Immunizations Vaccine Administration Date Value Standard Floyd cription pneumococcal immunization administered Pneumovax 23 [CVX33] pneumococcal polysaccharide vaccine, 23 valent Seasonal influenza vaccine, injectable, containing preservative, for > 3 years old (Afluria, FluLaval, Fluzone, Fluvirin, Fluarix, Agriflu(>= 18 yo)) Fluzone (>3 yrs.) [IOT139] Influenza, seasonal, inject able Seasonal influenza vaccine, injectable, containing preservative, for > 3 years old (Afluria, FluLaval, Fluzone, Fluvirin, Fluarix, Agriflu(>= 18 yo)) Fluzone (>3 yrs.) [KPA990] Influenza, seasonal, inject able Vital Signs Date [...] - Chem istry sodium, serum 139 mmol/L 795-323 4448/10/03 potassium, serum 4.7 mmol/L 3.5-5.2 chloride, serum 98 mmol/L 98-107 carbon dioxide, venous blood 28.7 mmol/L 21.0-32 .0 blood glucose 218 mg/dL 65-110 calcium, serum 9.8 mg/dL 8.5-10.1 urea nitrogen, blood 19 mg/dL 7-18 creatinine, serum 1.68 mg/dL 0.60-1.30 Lab Report: Basic Metabolic Panel, HGBA1 C - Chemistry sodium, serum 143 mmol/L 314-791 1149/06/19 potassium, serum 5.9 mmol/L 3.5-5.2 chloride, serum 105 mmol/L 98-107 carbon dioxide, venous blood 30.2 mmol/L 21.0-32 .0 blood glucose 189 mg/dL 65-110 calcium, serum 9.7 mg/dL 8.5-10.1 urea nitrogen, blood 37 mg/dL 7-18 creatinine, serum 2.11 mg/dL 0.55-1.30 hemoglobin A1C, blood, as % of total hemoglobin 8.2 % 4.3-6.0 Lab Report: CBC, Renal Panel - Chemistry sodium, serum 142 mmol/L 831-662 4098/08/11 potassium, serum 4.8 mmol/L 3.5-5.2 chloride, serum [...] Panel - Chemistry sodium, serum 143 mmol/L 866-277 1616/12/19 carbon dioxide, venous blood 32.5 mmol/L 21.0-32 .0 potassium, serum 4.9 mmol/L 3.5-5.2 chloride, serum 101 mmol/L 98-107 blood glucose 129 mg/dL 65-110 urea nitrogen, blood 18 mg/dL 7-18 creatinine, serum 1.79 mg/dL 0.55-1.30 alanine aminotransferase (SGPT), serum 34 U/L 12-78 aspartate aminotransferase (SGOT), serum 26 U/L 15-37 calcium, serum 8.9 mg/dL 8.5-10.1 bilirubin, serum, total 0.30 mg/dL 0.00-1.00 cholesterol, serum 214 mg/dL 581-815 1734/12/19 triglyceride, serum, fasting 351 mg/dL 30-200 HDL [...] 4.3-6.0 Encounters Code Encounter Date Provider Facility CPT-74763 Level 4 Est. Patient 12:25:11 CDT Baltazar Childers MD [facility]-89135 Level 4 Est. Patient 14:22:31 CDT Baltazar Childers MD [facility]-01649 Level 4 Est. Patient 15:44:38 CDT Shonna Elena CASTELLANOS [facility] CPT-58174 Level 4 Est. Patient 11:34:17 CDT Baltazar Childers MD [facility]-40752 Level 3 Est. Patient 16:40:40 CDT Baltazar Childers MD [facility] CPT-26118 Level 4 Est. Patient 10:41:24 CDT Baltazar Childers MD [facility]-94903 Level 4 Est. Patient 16:01:48 CDT Baltazar Childers MD [facility]-48935 Level 4 Est. 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 Patient 15:42:12 CDT Baltazar Childers MD [facility] CPT-76776 Level 4 Est. Patient 11:29:55 CDT Baltazar Childers MD [facility] CPT-63715 Level 4 Est. Patient 14:15:19 CDT Baltazar Childers MD [facility] CPT-81622 Level 4 Est. Patient 12:20:13 CDT Baltazar Childers MD [facility] CPT-26145 Level 4 Est. Patient 14:52:45 ELDER ASSISTANT Baltazar Childers MD [facility] CPT-30830 Level 4 Est. Patient 14:18:34 ELDER ASSISTANT Baltazar Childers MD [facility]-03030 Level 4 Est. Patient 15:18:29 CDT Baltazar Childers MD [facility] CPT-17367 Level 3 Est. Patient 12:45:34 CDT Baltazar Childers MD [facility] CPT-35612 Level 3 Est. Patient 10:10:11 CDT Baltazar Childers MD [facility] CPT-38238 Level 3 Est. Patient 14:07:50 CDT Baltazar Childers MD [facility] CPT-00651 Level 4 Est. Patient 12:26:10 ELDER ASSISTANT Baltazar Childers MD [facility] CPT-26664 Level 4 Est. Patient 14:45:38 CDT Baltazar Childers MD [facility] CPT-91075 Level 4 New Patient 12:30:48 CDT Baltazar hinton MD [facility] Procedures Code Procedure Name Date Entry Date Standard Desc ription CPT-95360 First Vx - Ix admin via ID I M or jet injects without counseling by physician 13:08:59 CDT CPT-70871 Fluzone Quadrivalent Intramuscular Suspe nsion 0.5 ML 13:08:59 CDT CPT-85788 Venipuncture Draw Fee 12:04:12 CDT CPT-09560 Lipid - LAB USE ONLY 17:39:15 ELDER ASSISTANT 9 CPT-40661 HGBA1C - LAB USE ONLY 17:39:15 ELDER ASSISTANT CPT-95539 CMP - LAB USE ONLY 17:39:14 ELDER ASSISTANT CPT-95653 Venipuncture Draw Fee 17:39:14 ELDER ASSISTANT CPT-08572 First Vx - Ix admin via ID I M or jet injects without counseling by physician 16:55:17 ELDER ASSISTANT CPT-63541 Fluzone Quadrivalent Intramuscular Suspe nsion 0.5 ML 16:55:17 ELDER ASSISTANT CPT-30074 Renal Panel - LAB USE ONLY 17:39:20 CDT 201 10/31/07 CPT-69381 CBC - LAB USE ONLY 17:39:20 CDT CPT-80061 Venipuncture Draw Fee 17:39:20 CDT CPT-23400 Venipuncture Draw Fee 14:33:30 CDT CPT-19206 Renal Panel - LAB USE ONLY 14:33:30 CDT 201 10/31/07 CPT-63362 CBC - LAB USE ONLY 14:33:29 CDT CPT-76697 Venipuncture Draw Fee 14:50:21 ELDER ASSISTANT CPT-58669 Immunization Single Admin 17:35:35 CDT 2014 CPT-54213 Fluzone Quadrivalent preservative free ( >=3yrs.) 17:35:35 CDT CPT-17010 Venipuncture Draw Fee 12:10:27 ELDER ASSISTANT CPT-03991 Fluzone Quadrivalent Intramuscular Suspe nsion 0.5 ML 10:49:13 CDT CPT-37777 First Vx Component - Ix admi n via ID IM or jet inj without physician counseling 15:17:19 ELDER ASSISTANT CPT-88556 Pneumovax 23 15:17:19 ELDER ASSISTANT CPT-22765 Pneumovax 14:52:45 ELDER ASSISTANT CPT-80450 Venipuncture Draw Fee 14:06:30 ELDER ASSISTANT CPT-000 Give Appropriate Flu Vaccine 14:18:34 ELDER ASSISTANT 2 CPT-08480 Administration single or combination vac cine inc oral 14:46:00 ELDER ASSISTANT CPT-27865 Influenza split virus > age 3 14:46:00 ELDER ASSISTANT CPT-OV Office Visit 19:13:16 CDT CPT-22718 Zostavax 18:41:56 CDT CPT-72034 Administration single or combination vac cine inc oral 12:56:39 CDT CPT-05394 Zoster Vaccine (Zostavax) 12:56:39 CDT 2012 CPT-03545 Venipuncture Draw Fee 10:58:57 CDT CPT-78192 Sono pelvis non OB uterus ovaries cervix 17:45:04 CDT CPT-59442 Sono retroperitoneal complete kidneys an d bladder 17:14:36 CDT CPT-OV Office Visit 14:59:38 ELDER ASSISTANT CPT-J1070 Depo Testosterone 100 mg 14:50:13 CDT 03/05 CPT-29153 Abx/Therapy Injection 14:50:13 CDT CPT-55724 Administration single or combination vac cine inc oral 14:34:43 CDT CPT-12497 Influenza split virus > age 3 14:34:43 CDT CPT-J1070 Depo Testosterone 100 mg 17:37:13 CDT 01/11 CPT-81251 Abx/Therapy Injection 17:37:13 CDT CPT-21654 Venipuncture Draw Fee 16:30:13 CDT CPT-57116 Venipuncture Draw Fee 16:29:43 CDT CPT-J1070 Depo Testosterone 100 mg 14:45:38 CDT 01/11
--- OUTSIDE RECORDS SUMMARY | 2019-10-27 12:31 | XMS REPORT | Clinical Summary ---
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 Benign neoplasm of colon PERIPHERAL NEUROPATHY 356.9 [...] y atherosclerosis of unspecified type of vessel, pokagon or graft OTH NONSPC ABN FINDNG RAD&OTH [...] MISC Test twice a day LANCET S 50869761701 Active Baltazar Childers MD Active TRUEDRAW LANCING DEVICE MISC Test twice a day L ANCET DEVICES 87797558834 Active Baltazar Childers MD Active TRUETRACK TEST STRP Test twice a day GLUCOSE BLOO D 66018776678 Active Baltazar Childers MD Active TRUETRACK BLOOD GLUCOSE W/DEVICE KIT Test twice a day BLOOD GLUCOSE MONITORING SUPPL 37712324307 Active Bella Suarez INTEGRATED CIRCUIT LAYOUT DESIGNER Active HYDROCODONE-ACETAMINOPHEN 7.5-325 MG TABS Take 1 tab every 6-8 hour s PRN HYDROCODONE-ACETAMINOPHEN 43656244390 Active Baltazar Childers MD Active NORTRIPTYLINE HCL 50 MG CAPS 1 every night for neuropathy 4 NORTRIPTYLINE HCL 16157238740 Active Baltazar Childers MD Acti ve GABAPENTIN 300 MG CAPS 1 three times a day GABAPE NTIN 15771041814 Active Baltazar Childers MD Active GABAPENTIN 300 MG CAPS 1 po qd x 2 days, then 1 po BID x 2 d ays, then 1 po TID GABAPENTIN 77754295052 No Longer Active Baltazar silverman MD Active TRAMADOL HCL 50 MG TABS 1 twice a day as needed for pain TRAMADOL HCL 90716736401 Active Baltazar Childers MD Active NAPROXEN 500 MG TABS 1 tablet by mouth twice daily NAPROXEN 25906177475 No Longer Active Baltazar Childers MD Active PROAIR HFA 108 (90 BASE) MCG/ACT AERS 2 puffs four times a d ay as needed ALBUTEROL SULFATE 79621316977 Active Baltazar Childers MD Active DEPO-TESTOSTERONE 200 MG/ML OIL as directed RUFINO TOSTERONE CYPIONATE 32865620335 No Longer Active Baltazar Childers MD Active LIPITOR 20 MG TABS Take one by mouth daily in evening ATORVASTATIN CALCIUM 49376653946 No Longer Active Baltazar Childers MD Activ e CRESTOR 10 MG TABS 1 by mouth every day R OSUVASTATIN CALCIUM 01907080897 No Longer Active Baltazar Childers MD Activ e PHENTERMINE HCL 37.5 MG TABS Take one by mouth daily 2 PHENTERMINE HCL 35028448662 No Longer Active Baltazar Childers MD Activ e ROBAXIN-750 750 MG TABS Take one by mouth daily ME THOCARBAMOL 23795657906 Active Baltazar Childers MD Active TIZANIDINE HCL 4 MG TABS 1 daily as needed for muscle spasm 2011 TIZANIDINE HCL 12844336377 No Longer Active Dawna Salazar RN Active [employer] ProjectTOUCH ULTRA BLUE STRP Test twice a day GLUCO SE BLOOD 54104202371 Active Baltazar Childers MD Active [id number] 50-325-40 MG TABS 1 four time s a day as needed for heacache [id number] 42288808950 Active Baltazar Childers MD Active SUMATRIPTAN SUCCINATE 100 MG TABS 1 tablet by mouth at onset of migraine as needed SUMATRIPTAN SUCCINATE 66893969735 Active Baltazar barron MD Active LORATADINE 10 MG TABS Take one by mouth daily LORATADINE 09529592362 Active Baltazar Childers MD Active FUROSEMIDE 40 MG TABS Take one by mouth daily FUROSEMIDE 41974962436 Active Baltazar Childers MD Active LISINOPRIL 20 MG TABS Take one by mouth daily at bedtime LISINOPRIL 83601770085 Active Baltazar Childers MD Active OMEPRAZOLE 20 MG CPDR Take one by mouth daily OMEPRAZOLE 97252517916 Active Baltazar Childers MD Active HYDROXYZINE HCL 25 MG TABS Take one by mouth daily HYDROXYZINE HCL 22604486712 Active Baltazar Chiledrs MD Active GLIPIZIDE 10 MG TABS 1 tablet by mouth twice daily GLIPIZIDE 99893224215 Active Baltazar Childers MD Active ALPRAZOLAM 1 MG TABS 1 tablet by mouth daily at bedtime for restles s leg ALPRAZOLAM 44050042162 Active Baltazar Childers MD Active METFORMIN HCL 1000 MG TABS Take one by mouth twice daily METFORMIN HCL 99290859400 Active Baltazar Childers MD Active TIZANIDINE HCL 4 MG TABS 1 daily as needed for muscle spasm 2011 TIZANIDINE HCL 4 MG TABS 917311 TIZANIDINE HCL Inactiv e PHENTERMINE HCL 37.5 MG TABS Take one by mouth daily 2 PHENTERMINE HCL 37.5 MG TABS 127784 PHENTERMINE HCL Inactive CRESTOR 10 MG TABS 1 by mouth every day C RESTOR 10 MG TABS ROSUVASTATIN CALCIUM Inactive LIPITOR 20 MG TABS Take one by mouth daily in evening LIPITOR 20 MG TABS 638578 ATORVASTATIN CALCIUM Inactive DEPO-TESTOSTERONE 200 MG/ML OIL as directed 8 DEPO-TESTOSTERONE 200 MG/ML OIL 404490 TESTOSTERONE CYPIONATE Inactive NAPROXEN 500 MG TABS 1 tablet by mouth twice daily 201 07/27/22 NAPROXEN 500 MG TABS 794963 NAPROXEN Inactive GABAPENTIN 300 MG CAPS 1 po qd x 2 days, then 1 po BID x 2 d ays, then 1 po TID GABAPENTIN 300 MG CAPS 851155 GABAPENTIN Inact amie Immunizations Vaccine Administration Date Value Standard Floyd cription pneumococcal immunization administered Pneumovax 23 [CVX33] pneumococcal polysaccharide vaccine, 23 valent Seasonal influenza vaccine, injectable, containing preservative, for > 3 years old (Afluria, FluLaval, Fluzone, Fluvirin, Fluarix, Agriflu(>= 18 yo)) Fluzone (>3 yrs.) [[id number]] Influenza, seasonal, inject able Seasonal influenza vaccine, injectable, containing preservative, for > 3 years old (Afluria, FluLaval, Fluzone, Fluvirin, Fluarix, Agriflu(>= 18 yo)) Fluzone (>3 yrs.) [[id number]] Influenza, seasonal, inject able Vital Signs Date [...] - Chem istry sodium, serum 140 mmol/L 082-501 9861/05/05 potassium, serum 4.9 mmol/L 3.5-5.2 chloride, serum [...] Panel - Chemistry sodium, serum 139 mmol/L 998-244 8820/01/20 potassium, serum 5.3 mmol/L 3.5-5.2 chloride, serum [...] mg/g mg/g{creat} 0-29 cholesterol, serum 319 mg/dL 978-801 1133/08/21 triglyceride, serum, fasting 546 mg/dL 30-200 HDL cholesterol, serum 39 mg/dL 32-96 LDL cholesterol, serum 167.00 mg/dL 5.00-130.00 hemoglobin A1C, blood, as % of total hemoglobin 7.7 % 4.3-6.0 sodium, serum 138 mmol/L 294-198 1546/08/21 potassium, serum 4.3 mmol/L 3.5-5.2 chloride, serum [...] 0-19 Encounters Code Encounter Date Provider Facility CPT-58441 Level 4 Est. Patient 11:29:55 CDT Baltazar Childers MD [facility] CPT-00795 Level 4 Est. Patient 14:15:19 CDT Baltazar Childers MD [facility] CPT-21619 Level 4 Est. Patient 12:20:13 CDT Baltazar Childers MD [facility] CPT-40750 Level 4 Est. Patient 14:52:45 KENO MANAGER Baltazar Childers MD [facility] CPT-97334 Level 4 Est. Patient 14:18:34 KENO MANAGER Baltazar Childers MD [facility] CPT-18426 Level 4 Est. Patient 15:18:29 CDT Baltazar Childers MD [facility] CPT-48733 Level 3 Est. Patient 12:45:34 CDT Baltazar Childers MD [facility] CPT-61768 Level 3 Est. Patient 10:10:11 CDT Baltazar Childers MD [facility] CPT-85921 Level 3 Est. Patient 14:07:50 CDT Baltazar Childers MD [facility] CPT-45001 Level 4 Est. Patient 12:26:10 KENO MANAGER Baltazar Childers MD [facility] CPT-71232 Level 4 Est. Patient 14:45:38 CDT Baltazar Childers MD [facility] CPT-92240 Level 4 New Patient 12:30:48 CDT Baltazar hinton MD [facility] Procedures Code Procedure Name Date Entry Date Standard Desc ription CPT-62420 Venipuncture Draw Fee 12:10:27 KENO MANAGER CPT-53411 Fluzone Quadrivalent Intramuscular Suspe nsion 0.5 ML 10:49:13 CDT CPT-27653 First Vx Component - Ix admi n via ID IM or jet inj without physician counseling 15:17:19 KENO MANAGER CPT-50717 Pneumovax 15:17:19 KENO MANAGER CPT-80207 Pneumovax 14:52:45 KENO MANAGER CPT-57403 Venipuncture Draw Fee 14:06:30 KENO MANAGER CPT-000 Give Appropriate Flu Vaccine 14:18:34 KENO MANAGER 2 CPT-83940 Administration single or combination vac cine inc oral 14:46:00 KENO MANAGER CPT-79907 Influenza split virus > age 3 14:46:00 KENO MANAGER CPT-OV Office Visit 19:13:16 CDT CPT-13933 Zostavax 18:41:56 CDT CPT-32395 Administration single or combination vac cine inc oral 12:56:39 CDT CPT-26469 Zoster Vaccine (Zostavax) 12:56:39 CDT 2012 CPT-71771 Venipuncture Draw Fee 10:58:57 CDT CPT-09246 Sono pelvis non OB uterus ovaries cervix 17:45:04 CDT CPT-18010 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
--- OUTSIDE RECORDS SUMMARY | 2019-10-27 12:32 | XMS REPORT | Clinical Summary ---
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 Benign neoplasm of colon PERIPHERAL NEUROPATHY 356.9 [...] atherosclerosis of unspecified type of vessel, lower brule or graft OTH NONSPC ABN FINDNG RAD&OTH [...] three times a day 201 12/03/26 GABAPENTIN 96457057329 No Longer Active Baltazar Childers MD Activ e LISINOPRIL 20 MG ORAL TABLET 1 tablet by mouth daily at night 2016 LISINOPRIL 54438702518 Active Baltazar Childers MD Active ZITHROMAX Z-ISAIAS 250 MG ORAL TABLET Take two tablets to day and then 1 tablet daily for 4 days AZITHROMYCIN 64713944518 No Longer A ctive Baltazar Childers MD Active LANTUS SOLOSTAR 100 UNIT/ML SUBCUTANEOUS SOLUTION PEN- INJECTOR 30 units SC daily INSULIN GLARGINE 94079607323 Active Baltazar Childers MD Active AMLODIPINE BESYLATE 5 MG ORAL TABLET 1 tab daily for HTN AMLODIPINE BESYLATE 11741007166 Active Baltazar Childers MD Active SYNTHROID 100 MCG ORAL TABLET 1 tablet by mouth daily LEVOTHYROXINE SODIUM 41633982286 Active Baltazar Childers MD Active GLIPIZIDE 10 MG ORAL TABLET take 2 tablets twice daily GLIPIZIDE 55025501387 Active Baltazar Childers MD Active SUCRALFATE 1 GM ORAL TABLET 1 four times a day to coat the stoma ch SUCRALFATE 36737787065 No Longer Active Baltazar Childers MD Active PEN NEEDLES 31G X 6 MM use 1 daily INSULIN PEN NE EDLE 50734579049 Active KENDALL Juarez Active CELINA POWERSOSTNAKITA 300 UNIT/ML SUBCUTANEOUS SOLUTION PEN- INJECTOR 10 units SC daily INSULIN GLARGINE 61519140904 No Longer Active Rola Godinez RMA Active NAPROXEN SODIUM 220 MG ORAL TABLET 1 three times a day as needed NAPROXEN SODIUM 62044574878 No Longer Active Baltazar Childers MD Active ATORVASTATIN CALCIUM 20 MG ORAL TABLET Take 1 tab daily ATORVASTATIN CALCIUM 85130506097 Active Baltazar Childers MD A ctive FUROSEMIDE 40 MG ORAL TABLET Take one by mouth daily FUROSEMIDE 02556118961 Active Jessy Arellano LPN Active LISINOPRIL 20 MG ORAL TABLET Take one by mouth daily at bedtime LISINOPRIL 42883805986 No Longer Active Baltazar Childers MD Active ONETOUCH ULTRA BLUE IN VITRO STRIP Test twice a day 07/11/11 GLUCOSE BLOOD 16353623282 No Longer Active Baltazar Childers MD Acti ve TRUEPLUS LANCETS 33G Test twice a day LANCETS 3392104 0644 Active KENDALL Juarez Active TRUEDRAW LANCING DEVICE Test twice a day LANCET DEVICES 13192800480 Active Baltazar Childers MD Active TRUETRACK TEST IN VITRO STRIP Test twice a day GLUCOSE BLOOD 42004178927 Active KENDALL Juarez Active TRUETRACK BLOOD GLUCOSE w/Device KIT Test twice a day BLOOD GLUCOSE MONITORING SUPPL 00317983031 Active Baltazar Childers MD Activ e HYDROCODONE-ACETAMINOPHEN 7.5-325 MG ORAL TABLET Take 1 tab every 6-8 hours PRN HYDROCODONE-ACETAMINOPHEN 46828797024 Active Baltazar Nickerson MD Active NORTRIPTYLINE HCL 50 MG ORAL CAPSULE 1 every night for neuropathy 2 NORTRIPTYLINE HCL 35405362461 Active Baltazar Childers MD Acti ve GABAPENTIN 300 MG ORAL CAPSULE 1 po qd x 2 days, then 1 po BID x 2 days, then 1 po TID GABAPENTIN 19128397148 No Longer Active Baltazar Childers MD Active TRAMADOL HCL 50 MG ORAL TABLET 1 twice a day as needed for pain 201 07/27/28 TRAMADOL HCL 95378709117 Active Baltazar Childers MD Active NAPROXEN 500 MG ORAL TABLET 1 tablet by mouth twice daily NAPROXEN 01236717527 No Longer Active Baltazar Childers MD Active PROAIR HFA 108 (90 Base) MCG/ACT INHALATION AEROSOL SO LUTION 2 puffs four times a day as needed ALBUTEROL SULFATE 78928598657 Active KENDALL Bowie Active DEPO-TESTOSTERONE 200 MG/ML INTRAMUSCULAR SOLUTION as directed TESTOSTERONE CYPIONATE 54305172798 No Longer Active Baltazar Childers MD Active LIPITOR 20 MG ORAL TABLET Take one by mouth daily in evening ATORVASTATIN CALCIUM 17251701582 No Longer Active Baltazar Childers MD Active CRESTOR 10 MG ORAL TABLET 1 by mouth every day ROSUVASTATIN CALCIUM 26309423675 No Longer Active Baltazar Childers MD Active PHENTERMINE HCL 37.5 MG ORAL TABLET Take one by mouth daily PHENTERMINE HCL 65293798867 No Longer Active Baltazar Childers MD Ac tive ROBAXIN-750 750 MG ORAL TABLET Take one by mouth daily METHOCARBAMOL 61422761323 Active Baltazar Childers MD Active TIZANIDINE HCL 4 MG ORAL TABLET 1 daily as needed for muscle spa sm TIZANIDINE HCL 95657251165 No Longer Active Dawna Salazar RN Active [id number]-[id number] 50-325-40 MG ORAL TABLET 1 fo ur times a day as needed for heacache [id number] 35696164771 Active Baltazar Childers MD Active SUMATRIPTAN SUCCINATE 100 MG ORAL TABLET 1 tablet by m out at onset of migraine as needed SUMATRIPTAN SUCCINATE 73116210385 Active KENDALL Restrepo Active LORATADINE 10 MG ORAL TABLET Take one by mouth daily LORATADINE 05702001446 Active Baltazar Childers MD Active OMEPRAZOLE 20 MG ORAL CAPSULE DELAYED RELEASE Take one by mouth jostin ly OMEPRAZOLE 10916019158 Active Baltazar Childers MD Active HYDROXYZINE HCL 25 MG ORAL TABLET Take one by mouth daily HYDROXYZINE HCL 63121513652 Active KENDALL Juarez Active ALPRAZOLAM 1 MG ORAL TABLET 1 [facility] ALPR[facility] 57777467646 Active Baltazar Childers MD Active METFORMIN HCL 1000 MG ORAL TABLET Take one by mouth twice daily METFORMIN HCL 63083587217 Active Baltazar Childers MD Active TIZANIDINE HCL 4 MG ORAL TABLET 1 daily as needed for muscle spa sm TIZANIDINE HCL 4 MG ORAL TABLET 201133 TIZANIDINE HCL Inactive PHENTERMINE HCL 37.5 MG ORAL TABLET Take one by mouth daily PHENTERMINE HCL 37.5 MG ORAL TABLET 806215 PHENTERMINE HCL Inac tive CRESTOR 10 MG ORAL TABLET 1 by mouth every day CRESTOR 10 MG ORAL TABLET 024337 ROSUVASTATIN CALCIUM Inactive LIPITOR 20 MG ORAL TABLET Take one by mouth daily in evening LIPITOR 20 MG ORAL TABLET 557446 ATORVASTATIN CALCIUM Inactive DEPO-TESTOSTERONE 200 MG/ML INTRAMUSCULAR SOLUTION as directed DEPO-TESTOSTERONE 200 MG/ML INTRAMUSCULAR SOLUTION 766112 RUFINO TOSTERONE CYPIONATE Inactive NAPROXEN 500 MG ORAL TABLET 1 tablet by mouth twice daily NAPROXEN 500 MG ORAL TABLET 107856 NAPROXEN Inactive GABAPENTIN 300 MG ORAL CAPSULE 1 po qd x 2 days, then 1 po BID x 2 days, then 1 po TID GABAPENTIN 300 MG ORAL CAPSULE 118190 GABAP ENTIN Inactive ONETOUCH ULTRA BLUE IN VITRO STRIP Test twice a day 07/11/11 ONETOUCH ULTRA BLUE IN VITRO STRIP GLUCOSE BLOOD Inact amie NAPROXEN SODIUM 220 MG ORAL TABLET 1 three times a day as needed NAPROXEN SODIUM 220 MG ORAL TABLET 151628 NAPROXEN SODI UM Inactive TOUJEO SOLOSTAR 300 UNIT/ML SUBCUTANEOUS SOLUTION PEN- INJECTOR 10 units SC daily TOUJEO SOLOSTAR 300 UNIT/ML SUBCUTANEOUS SOLUTION PEN-INJECTOR INSULIN GLARGINE Inactive SUCRALFATE 1 GM ORAL TABLET 1 four times a day to coat the stoma ch SUCRALFATE 1 GM ORAL TABLET 728309 SUCRALFATE Inac tive GABAPENTIN 300 MG ORAL CAPSULE 1 three times a day 201 12/03/26 GABAPENTIN 300 MG ORAL CAPSULE 054539 GABAPENTIN Inactive ZITHROMAX Z-ISAIAS 250 MG ORAL TABLET Take two tablets to day and then 1 tablet daily for 4 days ZITHROMAX Z-ISAIAS 250 MG ORAL TAB LET 441726 AZITHROMYCIN Inactive Immunizations Vaccine Administration Date Value Standard Floyd cription pneumococcal immunization administered Pneumovax 23 [CVX33] pneumococcal polysaccharide vaccine, 23 valent Seasonal influenza vaccine, injectable, containing preservative, for > 3 years old (Afluria, FluLaval, Fluzone, Fluvirin, Fluarix, Agriflu(>= 18 yo)) Fluzone (>3 yrs.) [QAJ528] Influenza, seasonal, inject able Seasonal influenza vaccine, injectable, containing preservative, for > 3 years old (Afluria, FluLaval, Fluzone, Fluvirin, Fluarix, Agriflu(>= 18 yo)) Fluzone (>3 yrs.) [FKY313] Influenza, seasonal, inject able Vital Signs Date [...] - Chem istry sodium, serum 139 mmol/L 203-630 6512/10/03 potassium, serum 4.7 mmol/L 3.5-5.2 chloride, serum 98 mmol/L 98-107 carbon dioxide, venous blood 28.7 mmol/L 21.0-32 .0 blood glucose 218 mg/dL 65-110 calcium, serum 9.8 mg/dL 8.5-10.1 urea nitrogen, blood 19 mg/dL 7-18 creatinine, serum 1.68 mg/dL 0.60-1.30 Lab Report: Basic Metabolic Panel, HGBA1 C - Chemistry sodium, serum 143 mmol/L 390-825 2864/06/19 potassium, serum 5.9 mmol/L 3.5-5.2 chloride, serum 105 mmol/L 98-107 carbon dioxide, venous blood 30.2 mmol/L 21.0-32 .0 blood glucose 189 mg/dL 65-110 calcium, serum 9.7 mg/dL 8.5-10.1 urea nitrogen, blood 37 mg/dL 7-18 creatinine, serum 2.11 mg/dL 0.55-1.30 hemoglobin A1C, blood, as % of total hemoglobin 8.2 % 4.3-6.0 Lab Report: CBC, Renal Panel - Chemistry sodium, serum 142 mmol/L 918-138 2618/08/11 potassium, serum 4.8 mmol/L 3.5-5.2 chloride, serum [...] (L) - Chemistry cholesterol, serum 209 mg/dL 926-757 4451/12/27 triglyceride, serum, fasting 329 mg/dL 30-200 HDL cholesterol, serum 56 mg/dL 32-60 LDL cholesterol, serum 87 mg/dL 0-130 TSH 3.60 m[iU]/mL 0.36-3.74 Encounters Code Encounter Date Provider Facility CPT-70255 Level 4 Est. Patient 16:21:19 DYE FEEDER Baltazar Childers MD [facility] CPT-09965 Level 4 Est. Patient 12:25:11 CDT Baltazar Childers MD [facility]-28537 Level 4 Est. Patient 14:22:31 CDT Baltazar Childers MD [facility]-28108 Level 4 Est. Patient 15:44:38 CDT Shonna Parker APRN [facility]-91824 Level 4 Est. Patient 11:34:17 CDT Baltazar Childers MD [facility]-13179 Level 3 Est. Patient 16:40:40 CDT Baltazar Childers MD [facility]-21377 Level 4 Est. Patient 10:41:24 CDT Baltazar Childers MD [facility]-00492 Level 4 Est. Patient 16:01:48 CDT Baltazar Childers MD [facility]-83678 Level 4 Est. Patient 16:54:07 DYE FEEDER Baltazar Childers MD [facility]76634 Level 4 Est. Patient 15:42:12 CDT Baltazar Childers MD [facility] CPT-70547 Level 4 Est. Patient 11:29:55 CDT Baltazar Childers MD [facility]-60297 Level 4 Est. Patient 14:15:19 CDT Baltazar Childers MD [facility]-22191 Level 4 Est. Patient 12:20:13 CDT Baltazar Childers MD [facility]-69497 Level 4 Est. Patient 14:52:45 DYE FEEDER Baltazar Childers MD [facility]-75831 Level 4 Est. Patient 14:18:34 DYE FEEDER Baltazar Childers MD [facility]-73617 Level 4 Est. Patient 15:18:29 CDT Baltazar Childers MD [facility]-61717 Level 3 Est. Patient 12:45:34 CDT Baltazar Childers MD [facility] CPT-61487 Level 3 Est. Patient 10:10:11 CDT Baltazar Childers MD [facility] CPT-85196 Level 3 Est. Patient 14:07:50 CDT Baltazar Childers MD [facility] CPT-32102 Level 4 Est. Patient 12:26:10 DYE FEEDER Baltazar Childers MD [facility] CPT-59005 Level 4 Est. Patient 14:45:38 CDT Baltazar Childers MD [facility] CPT-41291 Level 4 New Patient 12:30:48 CDT Baltazar hinton MD [facility] Procedures Code Procedure Name Date Entry Date Standard Desc ription CPT-63713 First Vx - Ix admin via ID I M or jet injects without counseling by physician 13:08:59 CDT CPT-49823 Fluzone Quadrivalent Intramuscular Suspe nsion 0.5 ML 13:08:59 CDT CPT-83419 Venipuncture Draw Fee 12:04:12 CDT CPT-99107 Lipid - LAB USE ONLY 17:39:15 DYE FEEDER 9 CPT-67965 HGBA1C - LAB USE ONLY 17:39:15 DYE FEEDER CPT-93267 CMP - LAB USE ONLY 17:39:14 DYE FEEDER CPT-54954 Venipuncture Draw Fee 17:39:14 DYE FEEDER CPT-15041 First Vx - Ix admin via ID I M or jet injects without counseling by physician 16:55:17 DYE FEEDER CPT-92266 Fluzone Quadrivalent Intramuscular Suspe nsion 0.5 ML 16:55:17 DYE FEEDER CPT-03602 Renal Panel - LAB USE ONLY 17:39:20 CDT 201 10/31/07 CPT-27577 CBC - LAB USE ONLY 17:39:20 CDT CPT-81315 Venipuncture Draw Fee 17:39:20 CDT CPT-63244 Venipuncture Draw Fee 14:33:30 CDT CPT-13257 Renal Panel - LAB USE ONLY 14:33:30 CDT 201 10/31/07 CPT-64040 CBC - LAB USE ONLY 14:33:29 CDT CPT-69232 Venipuncture Draw Fee 14:50:21 DYE FEEDER CPT-36452 Immunization Single Admin 17:35:35 CDT 2014 CPT-91098 Fluzone Quadrivalent preservative free ( >=3yrs.) 17:35:35 CDT CPT-72694 Venipuncture Draw Fee 12:10:27 DYE FEEDER CPT-42612 Fluzone Quadrivalent Intramuscular Suspe nsion 0.5 ML 10:49:13 CDT CPT-94322 First Vx Component - Ix admi n via ID IM or jet inj without physician counseling 15:17:19 DYE FEEDER CPT-97308 Pneumovax 23 15:17:19 DYE FEEDER CPT-63207 Pneumovax 14:52:45 DYE FEEDER CPT-80683 Venipuncture Draw Fee 14:06:30 DYE FEEDER CPT-000 Give Appropriate Flu Vaccine 14:18:34 DYE FEEDER 2 CPT-00381 Administration single or combination vac cine inc oral 14:46:00 DYE FEEDER CPT-09278 Influenza split virus > age 3 14:46:00 DYE FEEDER CPT-OV Office Visit 19:13:16 CDT CPT-64004 Zostavax 18:41:56 CDT CPT-28051 Administration single or combination vac cine inc oral 12:56:39 CDT CPT-44147 Zoster Vaccine (Zostavax) 12:56:39 CDT 2012 CPT-20218 Venipuncture Draw Fee 10:58:57 CDT CPT-96160 Sono pelvis non OB uterus ovaries cervix 17:45:04 CDT CPT-09608 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
--- OUTSIDE RECORDS SUMMARY | 2019-10-27 12:32 | XMS REPORT | Clinical Summary ---
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 Benign neoplasm of colon PERIPHERAL [...] ronary atherosclerosis of unspecified type of vessel, [place] or graft OTH NONSPC ABN FINDNG RAD&OTH [...] 1 tablet daily for 4 days AZITHROMYCIN 80494075434 No Longer Active Yousif Childers MD Active LANTUS SOLOSTAR 100 UNIT/ML SC SOPN 30 units SC daily INSULIN GLARGINE 55912530978 Active Baltazar Childers MD Active AMLODIPINE BESYLATE 5 MG ORAL TABS 1 tab daily for HTN AMLODIPINE BESYLATE 67879580634 Active Baltazar Childers MD Active SYNTHROID 0.1 MG TAB 1 tablet by mouth daily LE VOTHYROXINE SODIUM 11533246675 Active Baltazar Childers MD Active GLIPIZIDE 10 MG TAB take 2 tablets twice daily GLIPIZIDE 51566875775 Active Baltazar Childers MD Active SUCRALFATE 1 GM TABS 1 four times a day to coat the stomach 2015 SUCRALFATE 63246760405 No Longer Active Baltazar Childers MD Active PEN NEEDLES 31G X 6 MM MISC use 1 daily INSULIN PEN NEEDLE 92786954366 Active Gato Rae MD Active TOUJEO SOLOSTAR 300 UNIT/ML SC SOPN 10 units SC daily INSULIN GLARGINE 20502414192 No Longer Active Martita ARGUETA Active NAPROXEN SODIUM 220 MG ORAL TABS 1 three times a day as needed 2 NAPROXEN SODIUM 93368880871 No Longer Active Baltazar Childers MD Active ATORVASTATIN CALCIUM 20 MG ORAL TABS Take 1 tab daily ATORVASTATIN CALCIUM 58743478553 Active Baltazar Childers MD Active FUROSEMIDE 40 MG TABS Take one by mouth daily FUROSEMIDE 05595105259 Active Baltazar Childers MD Active LISINOPRIL 20 MG TABS Take one by mouth daily at bedtime LISINOPRIL 44149672636 No Longer Active Baltazar Childers MD Active ONETOUCH ULTRA BLUE STRP Test twice a day GLUCO SE BLOOD 83636845034 No Longer Active Baltazar Childers MD Active TRUEPLUS LANCETS 33G MISC Test twice a day LANCET S 64047352779 Active KENDALL Juarez Active TRUEDRAW LANCING DEVICE MISC Test twice a day L ANCET DEVICES 24016032375 Active Baltazar Childers MD Active TRUETRACK TEST STRP Test twice a day GLUCOSE BLOO D 34249844868 Active KENDALL Juarez Active TRUETRACK BLOOD GLUCOSE W/DEVICE KIT Test twice a day BLOOD GLUCOSE MONITORING SUPPL 00549263817 Active Baltazar Childers MD Activ e HYDROCODONE-ACETAMINOPHEN 7.5-325 MG TABS Take 1 tab every 6-8 hour s PRN HYDROCODONE-ACETAMINOPHEN 04242396834 Active Baltazar Childers MD Active NORTRIPTYLINE HCL 50 MG CAPS 1 every night for neuropathy 4 NORTRIPTYLINE HCL 13092982885 Active Baltazar Childers MD Acti ve GABAPENTIN 300 MG CAPS 1 three times a day GABAPE NTIN 33048492377 Active Baltazar Childers MD Active GABAPENTIN 300 MG CAPS 1 po qd x 2 days, then 1 po BID x 2 d ays, then 1 po TID GABAPENTIN 99937701036 No Longer Active Baltazar silverman MD Active TRAMADOL HCL 50 MG TABS 1 twice a day as needed for pain TRAMADOL HCL 89797714325 Active Baltazar Childers MD Active NAPROXEN 500 MG TABS 1 tablet by mouth twice daily NAPROXEN 79984507329 No Longer Active Baltazar Childers MD Active PROAIR HFA 108 (90 BASE) MCG/ACT AERS 2 puffs four times a d ay as needed ALBUTEROL SULFATE 18467301505 Active Baltazar Childers MD Active DEPO-TESTOSTERONE 200 MG/ML OIL as directed RUFINO TOSTERONE CYPIONATE 18631182124 No Longer Active Baltazar hCilders MD Active LIPITOR 20 MG TABS Take one by mouth daily in evening ATORVASTATIN CALCIUM 89721467023 No Longer Active Baltazar Childers MD Activ e CRESTOR 10 MG TABS 1 by mouth every day R OSUVASTATIN CALCIUM 64969875098 No Longer Active Baltazar Childers MD Activ e PHENTERMINE HCL 37.5 MG TABS Take one by mouth daily 2 PHENTERMINE HCL 82317432882 No Longer Active Baltazar Childers MD Activ e ROBAXIN-750 750 MG TABS Take one by mouth daily ME THOCARBAMOL 07008153970 Active Baltazar Childers MD Active TIZANIDINE HCL 4 MG TABS 1 daily as needed for muscle spasm 2011 TIZANIDINE HCL 56874944838 No Longer Active Dawnatung Salazar RN Active [id number] 50-325-40 MG TABS 1 four time s a day as needed for heacache [id number] 85701265798 Active KENDALL Juarez Active SUMATRIPTAN SUCCINATE 100 MG TABS 1 tablet by mouth at onset of migraine as needed SUMATRIPTAN SUCCINATE 75944995429 Active Baltazar bynum MD Active LORATADINE 10 MG TABS Take one by mouth daily LORATADINE 36930058041 Active Baltazar Childers MD Active OMEPRAZOLE 20 MG CPDR Take one by mouth daily OMEPRAZOLE 13116476168 Active Baltazar Childers MD Active HYDROXYZINE HCL 25 MG TABS Take one by mouth daily HYDROXYZINE HCL 44908901943 Active Baltazar Childers MD Active ALPRAZOLAM 1 MG TABS 1 tablet by mouth daily at bedtime for restles s leg ALPRAZOLAM 90718719581 Active Baltazar Childers MD Active METFORMIN HCL 1000 MG TABS Take one by mouth twice daily METFORMIN HCL 62376648761 Active Baltazar Childers MD Active TIZANIDINE HCL 4 MG TABS 1 daily as needed for muscle spasm 2011 TIZANIDINE HCL 4 MG TABS 883072 TIZANIDINE HCL Inactiv e PHENTERMINE HCL 37.5 MG TABS Take one by mouth daily 2 PHENTERMINE HCL 37.5 MG TABS 816509 PHENTERMINE HCL Inactive CRESTOR 10 MG TABS 1 by mouth every day C RESTOR 10 MG TABS 976139 ROSUVASTATIN CALCIUM Inactive LIPITOR 20 MG TABS Take one by mouth daily in evening LIPITOR 20 MG TABS 703212 ATORVASTATIN CALCIUM Inactive DEPO-TESTOSTERONE 200 MG/ML OIL as directed 8 DEPO-TESTOSTERONE 200 MG/ML OIL 987191 TESTOSTERONE CYPIONATE Inactive NAPROXEN 500 MG TABS 1 tablet by mouth twice daily 201 07/27/22 NAPROXEN 500 MG TABS 168508 NAPROXEN Inactive GABAPENTIN 300 MG CAPS 1 po qd x 2 days, then 1 po BID x 2 d ays, then 1 po TID GABAPENTIN 300 MG CAPS 496399 GABAPENTIN Inact amie ONETOUCH ULTRA BLUE STRP Test twice a day ONETOUCH ULTRA BLUE STRP GLUCOSE BLOOD Inactive NAPROXEN SODIUM 220 MG ORAL TABS 1 three times a day as needed 2 NAPROXEN SODIUM 220 MG ORAL TABS 470411 NAPROXEN SODIUM Inactive TOUJEO SOLOSTAR 300 UNIT/ML SC SOPN 10 units SC daily TOUJEO SOLOSTAR 300 UNIT/ML SC SOPN INSULIN GLARGINE Inac tive SUCRALFATE 1 GM TABS 1 four times a day to coat the stomach 2015 SUCRALFATE 1 GM TABS 681211 SUCRALFATE Inactive ZITHROMAX Z-ISAIAS 250 MG TABS Take two tablets today and then 1 tablet daily for 4 days ZITHROMAX Z-ISAIAS 250 MG TABS 640142 AZITHROM YCIN Inactive Immunizations Vaccine Administration Date Value Standard Floyd cription pneumococcal immunization administered Pneumovax 23 [CVX33] pneumococcal polysaccharide vaccine, 23 valent Seasonal influenza vaccine, injectable, containing preservative, for > 3 years old (Afluria, FluLaval, Fluzone, Fluvirin, Fluarix, Agriflu(>= 18 yo)) Fluzone (>3 yrs.) [[id number]] Influenza, seasonal, inject able Seasonal influenza vaccine, injectable, containing preservative, for > 3 years old (Afluria, FluLaval, Fluzone, Fluvirin, Fluarix, Agriflu(>= 18 yo)) Fluzone (>3 yrs.) [[id number]] Influenza, seasonal, inject able Vital Signs Date [...] - Chem istry sodium, serum 139 mmol/L 750-122 5675/10/03 potassium, serum 4.7 mmol/L 3.5-5.2 chloride, serum 98 mmol/L 98-107 carbon dioxide, venous blood 28.7 mmol/L 21.0-32 .0 blood glucose 218 mg/dL 65-110 calcium, serum 9.8 mg/dL 8.5-10.1 urea nitrogen, blood 19 mg/dL 7-18 creatinine, serum 1.68 mg/dL 0.60-1.30 Lab Report: Basic Metabolic Panel, HGBA1 C - Chemistry sodium, serum 143 mmol/L 670-290 4157/06/19 potassium, serum 5.9 mmol/L 3.5-5.2 chloride, serum 105 mmol/L 98-107 carbon dioxide, venous blood 30.2 mmol/L 21.0-32 .0 blood glucose 189 mg/dL 65-110 calcium, serum 9.7 mg/dL 8.5-10.1 urea nitrogen, blood 37 mg/dL 7-18 creatinine, serum 2.11 mg/dL 0.55-1.30 hemoglobin A1C, blood, as % of total hemoglobin 8.2 % 4.3-6.0 Lab Report: CBC, Renal Panel - Chemistry sodium, serum 142 mmol/L 884-597 3548/08/11 potassium, serum 4.8 mmol/L 3.5-5.2 chloride, serum [...] Panel - Chemistry sodium, serum 143 mmol/L 808-073 8126/12/19 carbon dioxide, venous blood 32.5 mmol/L 21.0-32 .0 potassium, serum 4.9 mmol/L 3.5-5.2 chloride, serum 101 mmol/L 98-107 blood glucose 129 mg/dL 65-110 urea nitrogen, blood 18 mg/dL 7-18 creatinine, serum 1.79 mg/dL 0.55-1.30 alanine aminotransferase (SGPT), serum 34 U/L 12-78 aspartate aminotransferase (SGOT), serum 26 U/L 15-37 calcium, serum 8.9 mg/dL 8.5-10.1 bilirubin, serum, total 0.30 mg/dL 0.00-1.00 cholesterol, serum 214 mg/dL 994-453 6347/12/19 triglyceride, serum, fasting 351 mg/dL 30-200 HDL [...] 4.3-6.0 Encounters Code Encounter Date Provider Facility CPT-99507 Level 4 Est. Patient 12:25:11 CDT Baltazar Childers MD [facility] CPT-82113 Level 4 Est. Patient 14:22:31 CDT Baltazar Childers MD -43186 Level 4 Est. Patient 15:44:38 CDT Shonna Parker APRN -[id number] Level 4 Est. Patient 11:34:17 CDT Baltazar Childers MD -38538 Level 3 Est. Patient 16:40:40 CDT Baltazar Childers MD -12368 Level 4 Est. Patient 10:41:24 CDT Baltazar Childers MD -23850 Level 4 Est. Patient 16:01:48 CDT Baltazar Childers MD -50292 Level 4 Est. 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 Patient 15:42:12 CDT Baltazar Childers MD [facility]-94434 Level 4 Est. Patient 11:29:55 CDT Baltazar Childers MD [facility]-56480 Level 4 Est. Patient 14:15:19 CDT Baltazar Childers MD [facility]-98987 Level 4 Est. Patient 12:20:13 CDT Baltazar Childers MD [facility]-97414 Level 4 Est. Patient 14:52:45 NURSING HOME MANAGER Baltazar Childers MD [facility]-81271 Level 4 Est. Patient 14:18:34 NURSING HOME MANAGER Baltazar Childers MD [facility]-79098 Level 4 Est. Patient 15:18:29 CDT Baltazar Childers MD [facility]-87922 Level 3 Est. Patient 12:45:34 CDT Baltazar Childers MD [facility]-48219 Level 3 Est. Patient 10:10:11 CDT Baltazar Childers MD [facility] CPT-02348 Level 3 Est. Patient 14:07:50 CDT Baltazar Childers MD [facility] CPT-63609 Level 4 Est. Patient 12:26:10 NURSING HOME MANAGER Baltazar Childers MD [facility] CPT-67509 Level 4 Est. Patient 14:45:38 CDT Baltazar Childers MD [facility] CPT-72464 Level 4 New Patient 12:30:48 CDT Baltazar hinton MD [facility] Procedures Code Procedure Name Date Entry Date Standard Desc ription CPT-55466 First Vx - Ix admin via ID I M or jet injects without counseling by physician 13:08:59 CDT CPT-40530 Fluzone Quadrivalent Intramuscular Suspe nsion 0.5 ML 13:08:59 CDT CPT-81228 Venipuncture Draw Fee 12:04:12 CDT CPT-09982 Lipid - LAB USE ONLY 17:39:15 NURSING HOME MANAGER 9 CPT-07057 HGBA1C - LAB USE ONLY 17:39:15 NURSING HOME MANAGER CPT-25390 CMP - LAB USE ONLY 17:39:14 NURSING HOME MANAGER CPT-11669 Venipuncture Draw Fee 17:39:14 NURSING HOME MANAGER CPT-25938 First Vx - Ix admin via ID I M or jet injects without counseling by physician 16:55:17 NURSING HOME MANAGER CPT-24678 Fluzone Quadrivalent Intramuscular Suspe nsion 0.5 ML 16:55:17 NURSING HOME MANAGER CPT-93586 Renal Panel - LAB USE ONLY 17:39:20 CDT 201 10/31/07 CPT-56733 CBC - LAB USE ONLY 17:39:20 CDT CPT-72760 Venipuncture Draw Fee 17:39:20 CDT CPT-57534 Venipuncture Draw Fee 14:33:30 CDT CPT-98751 Renal Panel - LAB USE ONLY 14:33:30 CDT 201 10/31/07 CPT-47054 CBC - LAB USE ONLY 14:33:29 CDT CPT-00400 Venipuncture Draw Fee 14:50:21 NURSING HOME MANAGER CPT-57258 Immunization Single Admin 17:35:35 CDT 2014 CPT-76582 Fluzone Quadrivalent preservative free ( >=3yrs.) 17:35:35 CDT CPT-91648 Venipuncture Draw Fee 12:10:27 NURSING HOME MANAGER CPT-24366 Fluzone Quadrivalent Intramuscular Suspe nsion 0.5 ML 10:49:13 CDT CPT-68144 First Vx Component - Ix admi n via ID IM or jet inj without physician counseling 15:17:19 NURSING HOME MANAGER CPT-71784 Pneumovax 23 15:17:19 NURSING HOME MANAGER CPT-45299 Pneumovax 14:52:45 NURSING HOME MANAGER CPT-43656 Venipuncture Draw Fee 14:06:30 NURSING HOME MANAGER CPT-000 Give Appropriate Flu Vaccine 14:18:34 NURSING HOME MANAGER 2 CPT-19265 Administration single or combination vac cine inc oral 14:46:00 NURSING HOME MANAGER CPT-86251 Influenza split virus > age 3 14:46:00 NURSING HOME MANAGER CPT-OV Office Visit 19:13:16 CDT CPT-63760 Zostavax 18:41:56 CDT CPT-98075 Administration single or combination vac cine inc oral 12:56:39 CDT CPT-29826 Zoster Vaccine (Zostavax) 12:56:39 CDT 2012 CPT-90282 Venipuncture Draw Fee 10:58:57 CDT CPT-20902 Sono pelvis non OB uterus ovaries cervix 17:45:04 CDT CPT-57341 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
--- OUTSIDE RECORDS SUMMARY | 2019-10-27 12:33 | XMS REPORT | Clinical Summary ---
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 Benign neoplasm of colon PERIPHERAL NEUROPATHY 356.9 [...] MISC Test twice a day LANCET S 24998534996 Active Baltazar Childers MD Active TRUEDRAW LANCING DEVICE MISC Test twice a day L ANCET DEVICES 10486059079 Active Baltazar Childers MD Active TRUETRACK TEST STRP Test twice a day GLUCOSE BLOO D 25735935744 Active Baltazar Childers MD Active TRUETRACK BLOOD GLUCOSE W/DEVICE KIT Test twice a day BLOOD GLUCOSE MONITORING SUPPL 70402577431 Active Bella Suarez AIRPLANE CAPTAIN Active HYDROCODONE-ACETAMINOPHEN 7.5-325 MG TABS Take 1 tab every 6-8 hour s PRN HYDROCODONE-ACETAMINOPHEN 36624524121 Active Baltazar Childers MD Active NORTRIPTYLINE HCL 50 MG CAPS 1 every night for neuropathy 4 NORTRIPTYLINE HCL 67345686722 Active Baltazar Childers MD Acti ve GABAPENTIN 300 MG CAPS 1 three times a day GABAPE NTIN 27505088821 Active Baltazar Childers MD Active GABAPENTIN 300 MG CAPS 1 po qd x 2 days, then 1 po BID x 2 d ays, then 1 po TID GABAPENTIN 60126076742 No Longer Active Baltazar silverman MD Active TRAMADOL HCL 50 MG TABS 1 twice a day as needed for pain TRAMADOL HCL 16711402893 Active Baltazar Childers MD Active NAPROXEN 500 MG TABS 1 tablet by mouth twice daily NAPROXEN 77063371340 No Longer Active Baltazar Childers MD Active PROAIR HFA 108 (90 BASE) MCG/ACT AERS 2 puffs four times a d ay as needed ALBUTEROL SULFATE 69953777951 Active Baltazar Childers MD Active DEPO-TESTOSTERONE 200 MG/ML OIL as directed RUFINO TOSTERONE CYPIONATE 39137143397 No Longer Active Baltazar Childers MD Active LIPITOR 20 MG TABS Take one by mouth daily in evening ATORVASTATIN CALCIUM 75877012320 No Longer Active Baltazar Childers MD Activ e CRESTOR 10 MG TABS 1 by mouth every day R OSUVASTATIN CALCIUM 18606854117 No Longer Active Baltazar Childers MD Activ e PHENTERMINE HCL 37.5 MG TABS Take one by mouth daily 2 PHENTERMINE HCL 24011962808 No Longer Active Baltazar Childers MD Activ e ROBAXIN-750 750 MG TABS Take one by mouth daily ME THOCARBAMOL 68912225400 Active Baltazar Childers MD Active TIZANIDINE HCL 4 MG TABS 1 daily as needed for muscle spasm 2011 TIZANIDINE HCL 68492704764 No Longer Active Dawna Salazar RN Active ONETOUCH ULTRA BLUE STRP Test twice a day GLUCO SE BLOOD 05692694911 Active Baltazar Childres MD Active [id number] 50-325-40 MG TABS 1 four time s a day as needed for heacache [id number] 96808474208 Active Baltazar Childers MD Active SUMATRIPTAN SUCCINATE 100 MG TABS 1 tablet by mouth at onset of migraine as needed SUMATRIPTAN SUCCINATE 53924788914 Active Baltazar barron MD Active LORATADINE 10 MG TABS Take one by mouth daily LORATADINE 75485026015 Active Baltazar Childers MD Active FUROSEMIDE 40 MG TABS Take one by mouth daily FUROSEMIDE 08192381138 Active Baltazar Childers MD Active LISINOPRIL 20 MG TABS Take one by mouth daily at bedtime LISINOPRIL 49474677085 Active Baltazar Childers MD Active OMEPRAZOLE 20 MG CPDR Take one by mouth daily OMEPRAZOLE 99391111003 Active Baltazar Childers MD Active HYDROXYZINE HCL 25 MG TABS Take one by mouth daily HYDROXYZINE HCL 18216738974 Active Baltazar Childers MD Active GLIPIZIDE 10 MG TABS 1 tablet by mouth twice daily GLIPIZIDE 64477162801 Active Baltazar Childers MD Active ALPRAZOLAM 1 MG TABS 1 tablet by mouth daily at bedtime for restles s leg ALPRAZOLAM 58559465318 Active Baltazar Childers MD Active METFORMIN HCL 1000 MG TABS Take one by mouth twice daily METFORMIN HCL 67937268595 Active Baltazar Childers MD Active TIZANIDINE HCL 4 MG TABS 1 daily as needed for muscle spasm 2011 TIZANIDINE HCL 4 MG TABS 477047 TIZANIDINE HCL Inactiv e PHENTERMINE HCL 37.5 MG TABS Take one by mouth daily 2 PHENTERMINE HCL 37.5 MG TABS 224011 PHENTERMINE HCL Inactive CRESTOR 10 MG TABS 1 by mouth every day C RESTOR 10 MG TABS ROSUVASTATIN CALCIUM Inactive LIPITOR 20 MG TABS Take one by mouth daily in evening LIPITOR 20 MG TABS 783718 ATORVASTATIN CALCIUM Inactive DEPO-TESTOSTERONE 200 MG/ML OIL as directed 8 DEPO-TESTOSTERONE 200 MG/ML OIL 049842 TESTOSTERONE CYPIONATE Inactive NAPROXEN 500 MG TABS 1 tablet by mouth twice daily 201 07/27/22 NAPROXEN 500 MG TABS 405763 NAPROXEN Inactive GABAPENTIN 300 MG CAPS 1 po qd x 2 days, then 1 po BID x 2 d ays, then 1 po TID GABAPENTIN 300 MG CAPS 655146 GABAPENTIN Inact amie Immunizations Vaccine Administration Date Value Standard Floyd cription pneumococcal immunization administered Pneumovax 23 [CVX33] pneumococcal polysaccharide vaccine, 23 valent Seasonal influenza vaccine, injectable, containing preservative, for > 3 years old (Afluria, FluLaval, Fluzone, Fluvirin, Fluarix, Agriflu(>= 18 yo)) Fluzone (>3 yrs.) [[id number]] Influenza, seasonal, inject able Seasonal influenza vaccine, injectable, containing preservative, for > 3 years old (Afluria, FluLaval, Fluzone, Fluvirin, Fluarix, Agriflu(>= 18 yo)) Fluzone (>3 yrs.) [[id number]] Influenza, seasonal, inject able Vital Signs Date [...] - Chem istry sodium, serum 140 mmol/L 984-605 8981/05/05 potassium, serum 4.9 mmol/L 3.5-5.2 chloride, serum [...] Panel - Chemistry sodium, serum 139 mmol/L 531-439 5645/01/20 potassium, serum 5.3 mmol/L 3.5-5.2 chloride, serum [...] H GBA1C, Comp. Metabolic Panel - Chemistry bilirubin, serum, total 0.20 mg/dL 0.00-1.00 calcium, serum 9.8 mg/dL 8.5-10.1 alkaline phosphatase, serum 55 U/L 50-136 aspartate aminotransferase (SGOT), serum 29 U/L 15-37 alanine aminotransferase (SGPT), serum 54 U/L 12-78 albumin/creatinine ratio, urine 30 - 300 mg/g mg/g{creat} 0-29 cholesterol, serum 319 mg/dL 078-520 5256/08/21 triglyceride, serum, fasting 546 mg/dL 30-200 HDL cholesterol, serum 39 mg/dL 32-96 LDL cholesterol, serum 167.00 mg/dL 5.00-130.00 hemoglobin A1C, blood, as % of total hemoglobin 7.7 % 4.3-6.0 sodium, serum 138 mmol/L 502-619 2456/08/21 potassium, serum 4.3 mmol/L 3.5-5.2 chloride, serum 100 mmol/L 98-107 carbon dioxide, venous blood 33.2 mmol/L 21.0-32 .0 blood glucose 138 mg/dL 65-110 urea nitrogen, blood 13 mg/dL 7-18 creatinine, serum 1.40 mg/dL 0.60-1.30 Lab Report: MICROALBUMIN, Lipid Panel, H GBA1C, Comp. Metabolic Panel - Lab microalbumin, urine 10 0-19 Encounters Code Encounter Date Provider Facility CPT-19817 Level 4 Est. Patient 11:29:55 CDT Baltazar Childers MD [facility] CPT-30105 Level 4 Est. Patient 14:15:19 CDT Baltazar Childers MD [facility] CPT-15128 Level 4 Est. Patient 12:20:13 CDT Baltazar Childers MD [facility] CPT-13482 Level 4 Est. Patient 14:52:45 FOOD SALES CLERK Baltazar Childers MD [facility] CPT-89938 Level 4 Est. Patient 14:18:34 FOOD SALES CLERK Baltazar Childers MD [facility] CPT-26708 Level 4 Est. Patient 15:18:29 CDT Baltazar Childers MD [facility] CPT-50216 Level 3 Est. Patient 12:45:34 CDT Baltazar Childers MD [facility] CPT-16775 Level 3 Est. Patient 10:10:11 CDT Baltazar Childers MD [facility] CPT-68702 Level 3 Est. Patient 14:07:50 CDT Baltazar Childers MD [facility] CPT-80441 Level 4 Est. Patient 12:26:10 FOOD SALES CLERK Baltazar Childers MD [facility] CPT-13252 Level 4 Est. Patient 14:45:38 CDT Baltazar Childers MD [facility] CPT-03420 Level 4 New Patient 12:30:48 CDT Baltazar hinton MD [facility] Procedures Code Procedure Name Date Entry Date Standard Desc ription CPT-99783 Venipuncture Draw Fee 12:10:27 FOOD SALES CLERK CPT-98583 Fluzone Quadrivalent Intramuscular Suspe nsion 0.5 ML 10:49:13 CDT CPT-35463 First Vx Component - Ix admi n via ID IM or jet inj without physician counseling 15:17:19 FOOD SALES CLERK CPT-52095 Pneumovax 15:17:19 FOOD SALES CLERK CPT-50667 Pneumovax 14:52:45 FOOD SALES CLERK CPT-64436 Venipuncture Draw Fee 14:06:30 FOOD SALES CLERK CPT-000 Give Appropriate Flu Vaccine 14:18:34 FOOD SALES CLERK 2 CPT-42989 Administration single or combination vac cine inc oral 14:46:00 FOOD SALES CLERK CPT-50464 Influenza split virus > age 3 14:46:00 FOOD SALES CLERK CPT-OV Office Visit 19:13:16 CDT CPT-01993 Zostavax 18:41:56 CDT CPT-46689 Administration single or combination vac cine inc oral 12:56:39 CDT CPT-66506 Zoster Vaccine (Zostavax) 12:56:39 CDT 2012 CPT-37451 Venipuncture Draw Fee 10:58:57 CDT CPT-13246 Sono pelvis non OB uterus ovaries cervix 17:45:04 CDT CPT-26135 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
--- OUTSIDE RECORDS SUMMARY | 2019-10-27 12:33 | XMS REPORT | Clinical Summary ---
Author Author Admin, Elba Lance MichelleAmb[employer] [facility] Address Unknown Phone Unavailable Allergies, Adverse 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 [employer] Benign neoplasm of colon PERIPHERAL NEUROPATHY 356.9 [...] atherosclerosis of unspecified type of vessel, lower [place] or graft OTH NONSPC ABN FINDNG RAD&OTH [...] 1 tab daily for HTN AMLODIPINE BESYLATE 40894095809 Active Ct Ledesma LPN Active SYNTHROID 0.1 MG TAB 1 tablet by mouth daily LE VOTHYROXINE SODIUM 86868427244 Active Carina Tucker LPN Active GLIPIZIDE 10 MG TAB take 2 tablets twice daily GLIPIZIDE 74948947920 Active Baltazar Childers MD Active SUCRALFATE 1 GM TABS 1 four times a day to coat the stomach 2015 SUCRALFATE 92999810314 No Longer Active Baltazar Childers MD Active PEN NEEDLES 31G X 6 MM MISC use 1 daily INSULIN PEN NEEDLE 15602854124 Active Bella Suarez [employer] Active TOUJEO SOLOSTAR 300 UNIT/ML SC SOPN 10 units SC daily INSULIN GLARGINE 95274500122 No Longer Active Martita Godinez RMA Active LANTUS SOLOSTAR 100 UNIT/ML SC SOPN 10 units SC daily INSULIN GLARGINE 15548129235 Active Baltazar Childers MD Active NAPROXEN SODIUM 220 MG ORAL TABS 1 three times a day as needed 2 NAPROXEN SODIUM 51839610825 No Longer Active Baltazar Childers MD Active ATORVASTATIN CALCIUM 20 MG ORAL TABS Take 1 tab daily ATORVASTATIN CALCIUM 13984307644 Active Baltazar Childers MD Active FUROSEMIDE 40 MG TABS Take one by mouth daily FUROSEMIDE 12458665781 Active Baltazar Childers MD Active LISINOPRIL 20 MG TABS Take one by mouth daily at bedtime LISINOPRIL 68153230277 No Longer Active Baltazar Childers MD Active ONETOUCH ULTRA BLUE STRP Test twice a day GLUCO SE BLOOD 49660331560 No Longer Active Baltazar Childers MD Active TRUEPLUS LANCETS 33G MISC Test twice a day LANCET S 36756063618 Active KENDALL Juarez Active TRUEDRAW LANCING DEVICE MISC Test twice a day L ANCET DEVICES 83685536843 Active Baltazar Childers MD Active TRUETRACK TEST STRP Test twice a day GLUCOSE BLOO D 48024904321 Active KENDALL Juarez Active TRUETRACK BLOOD GLUCOSE W/DEVICE KIT Test twice a day BLOOD GLUCOSE MONITORING SUPPL 76223684302 Active Baltazar Childers MD Activ e HYDROCODONE-ACETAMINOPHEN 7.5-325 MG TABS Take 1 tab every 6-8 hour s PRN HYDROCODONE-ACETAMINOPHEN 18174751243 Active Baltazar Childers MD Active NORTRIPTYLINE HCL 50 MG CAPS 1 every night for neuropathy 4 NORTRIPTYLINE HCL 97268139414 Active Baltazar Childers MD Acti ve GABAPENTIN 300 MG CAPS 1 three times a day GABAPE NTIN 44474701503 Active Baltazar Childers MD Active GABAPENTIN 300 MG CAPS 1 po qd x 2 days, then 1 po BID x 2 d ays, then 1 po TID GABAPENTIN 92567547526 No Longer Active Baltazar silverman MD Active TRAMADOL HCL 50 MG TABS 1 twice a day as needed for pain TRAMADOL HCL 71204873644 Active Baltazar Childers MD Active NAPROXEN 500 MG TABS 1 tablet by mouth twice daily NAPROXEN 94906969866 No Longer Active Baltazar Childers MD Active PROAIR HFA 108 (90 BASE) MCG/ACT AERS 2 puffs four times a d ay as needed ALBUTEROL SULFATE 97402045827 Active Baltazar Childers MD Active DEPO-TESTOSTERONE 200 MG/ML OIL as directed RUFINO TOSTERONE CYPIONATE 94516066071 No Longer Active Baltazar Childers MD Active LIPITOR 20 MG TABS Take one by mouth daily in evening ATORVASTATIN CALCIUM 92587085562 No Longer Active Baltazar Childers MD Activ e CRESTOR 10 MG TABS 1 by mouth every day R OSUVASTATIN CALCIUM 63113390121 No Longer Active Baltazar Childers MD Activ e PHENTERMINE HCL 37.5 MG TABS Take one by mouth daily 2 PHENTERMINE HCL 32688281016 No Longer Active Baltazar Childers MD Activ e ROBAXIN-750 750 MG TABS Take one by mouth daily ME THOCARBAMOL 36052754685 Active Baltazar Childers MD Active TIZANIDINE HCL 4 MG TABS 1 daily as needed for muscle spasm 2011 TIZANIDINE HCL 71456494860 No Longer Active Dawna Salazar RN Active KWBICLOAPS-OMFO-EDIDZOWW 50-325-40 MG TABS 1 four time s a day as needed for heacache WUNMWHNSYE-GIUI-PDJNWTPC 62827767227 Active Baltazar Childers MD Active SUMATRIPTAN SUCCINATE 100 MG TABS 1 tablet by mouth at onset of migraine as needed SUMATRIPTAN SUCCINATE 60406897760 Active Shonna richey APRN Active LORATADINE 10 MG TABS Take one by mouth daily LORATADINE 80395776760 Active KENDALL Juarez Active OMEPRAZOLE 20 MG CPDR Take one by mouth daily OMEPRAZOLE 99863963023 Active Baltazar Childers MD Active HYDROXYZINE HCL 25 MG TABS Take one by mouth daily HYDROXYZINE HCL 55591114193 Active Baltazar Childers MD Active ALPRAZOLAM 1 MG TABS 1 tablet by mouth daily at bedtime for restles s leg ALPRAZOLAM 80384122025 Active Baltazar Childers MD Active METFORMIN HCL 1000 MG TABS Take one by mouth twice daily METFORMIN HCL 85720337307 Active Baltazar Childers MD Active TIZANIDINE HCL 4 MG TABS 1 daily as needed for muscle spasm 2011 TIZANIDINE HCL 4 MG TABS 603289 TIZANIDINE HCL Inactiv e PHENTERMINE HCL 37.5 MG TABS Take one by mouth daily 2 PHENTERMINE HCL 37.5 MG TABS 273630 PHENTERMINE HCL Inactive CRESTOR 10 MG TABS 1 by mouth every day C RESTOR 10 MG TABS 641090 ROSUVASTATIN CALCIUM Inactive LIPITOR 20 MG TABS Take one by mouth daily in evening LIPITOR 20 MG TABS 803003 ATORVASTATIN CALCIUM Inactive DEPO-TESTOSTERONE 200 MG/ML OIL as directed 8 DEPO-TESTOSTERONE 200 MG/ML OIL 547600 TESTOSTERONE CYPIONATE Inactive NAPROXEN 500 MG TABS 1 tablet by mouth twice daily 201 07/27/22 NAPROXEN 500 MG TABS 501273 NAPROXEN Inactive GABAPENTIN 300 MG CAPS 1 po qd x 2 days, then 1 po BID x 2 d ays, then 1 po TID GABAPENTIN 300 MG CAPS 059725 GABAPENTIN Inact amie ONETOUCH ULTRA BLUE STRP Test twice a day ONETOUCH ULTRA BLUE STRP GLUCOSE BLOOD Inactive NAPROXEN SODIUM 220 MG ORAL TABS 1 three times a day as needed 2 NAPROXEN SODIUM 220 MG ORAL TABS 056126 NAPROXEN SODIUM Inactive TOUJEO SOLOSTAR 300 UNIT/ML SC SOPN 10 units SC daily TOUJEO SOLOSTAR 300 UNIT/ML SC SOPN INSULIN GLARGINE Inac tive SUCRALFATE 1 GM TABS 1 four times a day to coat the stomach 2015 SUCRALFATE 1 GM TABS 202297 SUCRALFATE Inactive Immunizations Vaccine Administration Date Value Standard Floyd cription pneumococcal immunization administered Pneumovax 23 [CVX33] pneumococcal polysaccharide vaccine, 23 valent Seasonal influenza vaccine, injectable, containing preservative, for > 3 years old (Afluria, FluLaval, Fluzone, Fluvirin, Fluarix, Agriflu(>= 18 yo)) Fluzone (>3 yrs.) [TPQ098] Influenza, seasonal, inject able Seasonal influenza vaccine, injectable, containing preservative, for > 3 years old (Afluria, FluLaval, Fluzone, Fluvirin, Fluarix, Agriflu(>= 18 yo)) Fluzone (>3 yrs.) [FKV721] Influenza, seasonal, inject able Vital Signs Date [...] C - Chemistry sodium, serum 139 mmol/L 042-723 8422/07/07 potassium, serum 4.5 mmol/L 3.5-5.2 chloride, serum 99 mmol/L 98-107 carbon dioxide, venous blood 33.8 mmol/L 21.0-32 .0 blood glucose 209 mg/dL 65-110 calcium, serum 9.8 mg/dL 8.5-10.1 urea nitrogen, blood 14 mg/dL 7-18 creatinine, serum 1.89 mg/dL 0.55-1.30 hemoglobin A1C, blood, as % of total hemoglobin 8.3 % 4.3-6.0 sodium, serum 143 mmol/L 675-121 3956/06/19 potassium, serum 5.9 mmol/L 3.5-5.2 chloride, serum [...] Panel - Chemistry sodium, serum 143 mmol/L 316-108 4999/12/19 carbon dioxide, venous blood 32.5 mmol/L 21.0-32 .0 potassium, serum 4.9 mmol/L 3.5-5.2 chloride, serum 101 mmol/L 98-107 blood glucose 129 mg/dL 65-110 urea nitrogen, blood 18 mg/dL 7-18 creatinine, serum 1.79 mg/dL 0.55-1.30 alanine aminotransferase (SGPT), serum 34 U/L 12-78 aspartate aminotransferase (SGOT), serum 26 U/L 15-37 calcium, serum 8.9 mg/dL 8.5-10.1 bilirubin, serum, total 0.30 mg/dL 0.00-1.00 cholesterol, serum 214 mg/dL 138-567 6889/12/19 triglyceride, serum, fasting 351 mg/dL 30-200 HDL [...] Panel - Chemistry sodium, serum 141 mmol/L 079-460 7130/08/08 potassium, serum 4.9 mmol/L 3.5-5.2 chloride, serum 101 mmol/L 98-107 carbon dioxide, venous blood 34.1 mmol/L 21.0-32 .0 creatinine, serum 1.98 mg/dL 0.55-1.30 blood glucose 193 mg/dL 65-110 urea nitrogen, blood 30 mg/dL 7-18 calcium, serum 9.8 mg/dL 8.5-10.1 Encounters Code Encounter Date Provider Facility CPT-75770 Level 4 Est. Patient 14:22:31 CDT Baltazar Childers MD [facility]-56918 Level 4 Est. Patient 15:44:38 CDT Shonna Parker [facility]-87039 Level 4 Est. Patient 11:34:17 CDT Baltazar Childers MD [facility]-85682 Level 3 Est. Patient 16:40:40 CDT Baltazar Childers MD [facility]-51095 Level 4 Est. Patient 10:41:24 CDT Baltazar Childers MD [facility]-95046 Level 4 Est. Patient 16:01:48 CDT Baltazar Childers MD [facility]-54076 Level 4 Est. Patient 16:54:07 [employer] Baltazar Childers MD [facility]-37755 Level 4 Est. Patient 15:42:12 CDT Baltazar Childers MD [facility] CPT-59171 Level 4 Est. Patient 11:29:55 CDT Baltazar Childers MD [facility] CPT-86602 Level 4 Est. Patient 14:15:19 CDT Baltazar Childers MD [facility] CPT-91449 Level 4 Est. Patient 12:20:13 CDT Baltazar Childers MD [facility] CPT-48149 Level 4 Est. Patient 14:52:45 [employer] Baltazar Childers MD [facility] CPT-40464 Level 4 Est. Patient 14:18:34 [employer] Baltazar Childers MD [facility] CPT-34804 Level 4 Est. Patient 15:18:29 CDT Baltazar Childers MD [facility] CPT-03130 Level 3 Est. Patient 12:45:34 CDT Baltazar Childers MD [facility] CPT-27798 Level 3 Est. Patient 10:10:11 CDT Baltazar Childers MD [facility] CPT-96488 Level 3 Est. Patient 14:07:50 CDT Baltazar Childers MD [facility] CPT-33878 Level 4 Est. Patient 12:26:10 [employer] Baltazar Childers MD [facility] CPT-68067 Level 4 Est. Patient 14:45:38 CDT Baltazar Childers MD [facility] CPT-30469 Level 4 New Patient 12:30:48 CDT Baltazar hinton MD [facility] Procedures Code Procedure Name Date Entry Date Standard Desc ription CPT-84801 Lipid - LAB USE ONLY 17:39:15 [employer] 9 CPT-85251 HGBA1C - LAB USE ONLY 17:39:15 [employer] CPT-41566 CMP - LAB USE ONLY 17:39:14 [employer] CPT-55827 Venipuncture Draw Fee 17:39:14 [employer] CPT-73960 First Vx - Ix admin via ID I M or jet injects without counseling by physician 16:55:17 [employer] CPT-50325 Fluzone Quadrivalent Intramuscular Suspe nsion 0.5 ML 16:55:17 [employer] CPT-40193 Renal Panel - LAB USE ONLY 17:39:20 CDT 201 10/31/07 CPT-23994 CBC - LAB USE ONLY 17:39:20 CDT CPT-95775 Venipuncture Draw Fee 17:39:20 CDT CPT-11934 Venipuncture Draw Fee 14:33:30 CDT CPT-25808 Renal Panel - LAB USE ONLY 14:33:30 CDT 201 10/31/07 CPT-55134 CBC - LAB USE ONLY 14:33:29 CDT CPT-95697 Venipuncture Draw Fee 14:50:21 [employer] CPT-77595 Immunization Single Admin 17:35:35 CDT 2014 CPT-02212 Fluzone Quadrivalent preservative free ( >=3yrs.) 17:35:35 CDT CPT-94625 Venipuncture Draw Fee 12:10:27 [employer] CPT-58211 Fluzone Quadrivalent Intramuscular Suspe nsion 0.5 ML 10:49:13 CDT CPT-72425 First Vx Component - Ix admi n via ID IM or jet inj without physician counseling 15:17:19 [employer] CPT-91631 Pneumovax 23 15:17:19 [employer] CPT-11662 Pneumovax 14:52:45 [employer] CPT-98357 Venipuncture Draw Fee 14:06:30 [employer] CPT-000 Give Appropriate Flu Vaccine 14:18:34 [employer] 2 CPT-75045 Administration single or combination vac cine inc oral 14:46:00 [employer] CPT-63209 Influenza split virus > age 3 14:46:00 [employer] CPT-OV Office Visit 19:13:16 CDT CPT-82024 Zostavax 18:41:56 CDT CPT-85152 Administration single or combination vac cine inc oral 12:56:39 CDT CPT-34986 Zoster Vaccine (Zostavax) 12:56:39 CDT 2012 CPT-41382 Venipuncture Draw Fee 10:58:57 CDT CPT-14722 Sono pelvis non OB uterus ovaries cervix 17:45:04 CDT CPT-22067 Sono retroperitoneal complete kidneys an d bladder 17:14:36 CDT CPT-OV Office Visit 14:59:38 [employer] CPT-J1070 Depo Testosterone 100 mg 14:50:13 CDT 03/05 CPT-82648 Abx/Therapy Injection 14:50:13 CDT CPT-66150 Administration single or combination vac cine inc oral 14:34:43 CDT CPT-59971 Influenza split virus > age 3 14:34:43 CDT CPT-J1070 Depo Testosterone 100 mg 17:37:13 CDT 01/11 CPT-25006 Abx/Therapy Injection 17:37:13 CDT CPT-99061 Venipuncture Draw Fee 16:30:13 CDT CPT-94132 Venipuncture Draw Fee 16:29:43 CDT CPT-J1070 Depo Testosterone 100 mg 14:45:38 CDT 01/11
--- OUTSIDE RECORDS SUMMARY | 2019-10-27 12:33 | XMS REPORT | Clinical Summary ---
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 Personal history of colonic polyps PARESTHESIA, HANDS [...] sug ar BID Dx: E11.65 GLUCOSE BLOOD 10730706612 Active KENDALL Juarez Active NORTRIPTYLINE HCL 50 MG ORAL CAPSULE 1 twice a day for neuropathy 2 NORTRIPTYLINE HCL 17627264787 Active Baltazar Childers MD Acti ve ASPIRIN 81 MG TBEC Take one (1) tablet by mouth daily ASPIRIN 63391323128 Active Baltazar Childers MD Active GABAPENTIN 300 MG ORAL CAPSULE 1 three times a day 201 12/03/26 GABAPENTIN 01030790302 No Longer Active Baltazar Childers MD Activ e LISINOPRIL 20 MG ORAL TABLET 1 tablet by mouth daily at night 2016 LISINOPRIL 91504449158 Active Baltazar Childers MD Active ZITHROMAX Z-ISAIAS 250 MG ORAL TABLET Take two tablets to day and then 1 tablet daily for 4 days AZITHROMYCIN 63839378097 No Longer A ctive Baltazar Childers MD Active LANTUS SOLOSTAR 100 UNIT/ML SUBCUTANEOUS SOLUTION PEN- INJECTOR 30 units SC daily INSULIN GLARGINE 28174205389 Active Baltazar Childers MD Active AMLODIPINE BESYLATE 5 MG ORAL TABLET 1 tab daily for HTN AMLODIPINE BESYLATE 44911920322 Active Batlazar Childers MD Active SYNTHROID 100 MCG ORAL TABLET 1 tablet by mouth daily LEVOTHYROXINE SODIUM 30672982046 Active Baltazar Childers MD Active GLIPIZIDE 10 MG ORAL TABLET take 2 tablets twice daily GLIPIZIDE 28206184995 Active Baltazar Childers MD Active SUCRALFATE 1 GM ORAL TABLET 1 four times a day to coat the stoma ch SUCRALFATE 90358890415 No Longer Active Baltazar Childers MD Active PEN NEEDLES 31G X 6 MM use 1 daily INSULIN PEN NE EDLE 15731394129 Active KENDALL Juarez Active TOZULEIKA SOLOSTAR 300 UNIT/ML SUBCUTANEOUS SOLUTION PEN- INJECTOR 10 units SC daily INSULIN GLARGINE 66482134275 No Longer Active Rola Godinez KENDALL Active NAPROXEN SODIUM 220 MG ORAL TABLET 1 three times a day as needed NAPROXEN SODIUM 22897059222 No Longer Active Baltazar Childers MD Active ATORVASTATIN CALCIUM 20 MG ORAL TABLET Take 1 tab daily ATORVASTATIN CALCIUM 52380153800 Active Baltazar Childers MD A ctive FUROSEMIDE 40 MG ORAL TABLET Take one by mouth daily FUROSEMIDE 92234431749 Active Baltazar Childers MD Active LISINOPRIL 20 MG ORAL TABLET Take one by mouth daily at bedtime LISINOPRIL 13549292207 No Longer Active Baltazar Childers MD Active ONETOUCH ULTRA BLUE IN VITRO STRIP Test twice a day 07/11/11 GLUCOSE BLOOD 64643464492 No Longer Active Baltazar Childers MD Acti ve TRUEPLUS LANCETS 33G Test twice a day LANCETS 6529726 6586 Active KENDALL Juarez Active TRUEDRAW LANCING DEVICE Test twice a day LANCET DEVICES 23864346766 Active Baltazar Childers MD Active TRUETRACK BLOOD GLUCOSE w/Device KIT Test twice a day BLOOD GLUCOSE MONITORING SUPPL 80245777958 Active Baltazar Childers MD Activ e HYDROCODONE-ACETAMINOPHEN 7.5-325 MG ORAL TABLET Take 1 tab every 6-8 hours PRN HYDROCODONE-ACETAMINOPHEN 73257918416 Active Baltazar Nickerson MD Active GABAPENTIN 300 MG ORAL CAPSULE 1 po qd x 2 days, then 1 po BID x 2 days, then 1 po TID GABAPENTIN 73120471759 No Longer Active Baltazar Childers MD Active TRAMADOL HCL 50 MG ORAL TABLET 1 twice a day as needed for pain 201 07/27/28 TRAMADOL HCL 17035994810 Active Baltazar Childers MD Active NAPROXEN 500 MG ORAL TABLET 1 tablet by mouth twice daily NAPROXEN 78273881064 No Longer Active Baltazar Childers MD Active PROAIR HFA 108 (90 Base) MCG/ACT INHALATION AEROSOL SO LUTION 2 puffs four times a day as needed ALBUTEROL SULFATE 22025305686 Active R gilberto Childers MD Active DEPO-TESTOSTERONE 200 MG/ML INTRAMUSCULAR SOLUTION as directed TESTOSTERONE CYPIONATE 22870777581 No Longer Active Baltazar Childers MD Active LIPITOR 20 MG ORAL TABLET Take one by mouth daily in evening ATORVASTATIN CALCIUM 86490851868 No Longer Active Baltazar Childers MD Active CRESTOR 10 MG ORAL TABLET 1 by mouth every day ROSUVASTATIN CALCIUM 21451441808 No Longer Active Baltazar Childers MD Active PHENTERMINE HCL 37.5 MG ORAL TABLET Take one by mouth daily PHENTERMINE HCL 24230476900 No Longer Active Baltazar Childers MD Ac tive ROBAXIN-750 750 MG ORAL TABLET Take one by mouth daily METHOCARBAMOL 33615457186 Active KENDALL Juarez Active TIZANIDINE HCL 4 MG ORAL TABLET 1 daily as needed for muscle spa sm TIZANIDINE HCL 70704310037 No Longer Active Dawna Salazar RN Active [id number] 50-325-40 MG ORAL TABLET 1 fo ur times a day as needed for heacache [id number] 09453640582 Active Baltazar Childers MD Active SUMATRIPTAN SUCCINATE 100 MG ORAL TABLET 1 tablet by m outh at onset of migraine as needed SUMATRIPTAN SUCCINATE 37445292410 Active KENDALL Restrepo Active LORATADINE 10 MG ORAL TABLET Take one by mouth daily LORATADINE 52940949479 Active KENDALL Juarez Active OMEPRAZOLE 20 MG ORAL CAPSULE DELAYED RELEASE Take one by mouth jostin ly OMEPRAZOLE 66120204213 Active Baltazar Childers MD Active HYDROXYZINE HCL 25 MG ORAL TABLET Take one by mouth daily HYDROXYZINE HCL 53440199143 Active Baltazar Childers MD Active ALPRAZOLAM 1 MG ORAL TABLET 1 tablet by mouth daily at bedti me for restless leg ALPRAZOLAM 96305223986 Active Baltazar Childers MD Active METFORMIN HCL 1000 MG ORAL TABLET Take one by mouth twice daily METFORMIN HCL 09146757082 Active Baltazar Childers MD Active TIZANIDINE HCL 4 MG ORAL TABLET 1 daily as needed for muscle spa sm TIZANIDINE HCL 4 MG ORAL TABLET 761962 TIZANIDINE HCL Inactive PHENTERMINE HCL 37.5 MG ORAL TABLET Take one by mouth daily PHENTERMINE HCL 37.5 MG ORAL TABLET 155954 PHENTERMINE HCL Inac tive CRESTOR 10 MG ORAL TABLET 1 by mouth every day CRESTOR 10 MG ORAL TABLET 003784 ROSUVASTATIN CALCIUM Inactive LIPITOR 20 MG ORAL TABLET Take one by mouth daily in evening LIPITOR 20 MG ORAL TABLET 870102 ATORVASTATIN CALCIUM Inactive DEPO-TESTOSTERONE 200 MG/ML INTRAMUSCULAR SOLUTION as directed DEPO-TESTOSTERONE 200 MG/ML INTRAMUSCULAR SOLUTION 330322 RUFINO TOSTERONE CYPIONATE Inactive NAPROXEN 500 MG ORAL TABLET 1 tablet by mouth twice daily NAPROXEN 500 MG ORAL TABLET 375017 NAPROXEN Inactive GABAPENTIN 300 MG ORAL CAPSULE 1 po qd x 2 days, then 1 po BID x 2 days, then 1 po TID GABAPENTIN 300 MG ORAL CAPSULE 307098 GABAP ENTIN Inactive ONETOUCH ULTRA BLUE IN VITRO STRIP Test twice a day 07/11/11 ONETOUCH ULTRA BLUE IN VITRO STRIP GLUCOSE BLOOD Inact amie NAPROXEN SODIUM 220 MG ORAL TABLET 1 three times a day as needed NAPROXEN SODIUM 220 MG ORAL TABLET 578958 NAPROXEN SODI UM Inactive TOUJEO SOLOSTAR 300 UNIT/ML SUBCUTANEOUS SOLUTION PEN- INJECTOR 10 units SC daily TOUJEO SOLOSTAR 300 UNIT/ML SUBCUTANEOUS SOLUTION PEN-INJECTOR INSULIN GLARGINE Inactive SUCRALFATE 1 GM ORAL TABLET 1 four times a day to coat the stoma ch SUCRALFATE 1 GM ORAL TABLET 192043 SUCRALFATE Inac tive GABAPENTIN 300 MG ORAL CAPSULE 1 three times a day 201 12/03/26 GABAPENTIN 300 MG ORAL CAPSULE 929899 GABAPENTIN Inactive ZITHROMAX Z-ISAIAS 250 MG ORAL TABLET Take two tablets to day and then 1 tablet daily for 4 days ZITHROMAX Z-ISAIAS 250 MG ORAL TAB LET 447119 AZITHROMYCIN Inactive Immunizations Vaccine Administration Date Value Standard Floyd cription pneumococcal immunization administered Pneumovax 23 [CVX33] pneumococcal polysaccharide vaccine, 23 valent Seasonal influenza vaccine, injectable, containing preservative, for > 3 years old (Afluria, FluLaval, Fluzone, Fluvirin, Fluarix, Agriflu(>= 18 yo)) Fluzone (>3 yrs.) [[id number]] Influenza, seasonal, inject able Seasonal influenza vaccine, injectable, containing preservative, for > 3 years old (Afluria, FluLaval, Fluzone, Fluvirin, Fluarix, Agriflu(>= 18 yo)) Fluzone (>3 yrs.) [[id number]] Influenza, seasonal, inject able Vital Signs Date [...] - Chem istry sodium, serum 139 mmol/L 554-916 9472/10/03 potassium, serum 4.7 mmol/L 3.5-5.2 chloride, serum 98 mmol/L 98-107 carbon dioxide, venous blood 28.7 mmol/L 21.0-32 .0 blood glucose 218 mg/dL 65-110 calcium, serum 9.8 mg/dL 8.5-10.1 urea nitrogen, blood 19 mg/dL 7-18 creatinine, serum 1.68 mg/dL 0.60-1.30 sodium, serum 139 mmol/L 008-919 3001/06/26 potassium, serum 4.8 mmol/L 3.5-5.2 chloride, serum 102 mmol/L 98-107 carbon dioxide, venous blood 29.1 mmol/L 21.0-32 .0 blood glucose 179 mg/dL 65-95 calcium, serum 9.7 mg/dL 8.5-10.1 urea nitrogen, blood 31 mg/dL 7-18 creatinine, serum 1.97 mg/dL 0.60-1.30 Lab Report: CBC, Renal Panel - Chemistry sodium, serum 142 mmol/L 956-441 9035/08/11 potassium, serum 4.8 mmol/L 3.5-5.2 chloride, serum [...] (L) - Chemistry cholesterol, serum 209 mg/dL 063-588 3090/12/27 triglyceride, serum, fasting 329 mg/dL 30-200 HDL cholesterol, serum 56 mg/dL 32-60 LDL cholesterol, serum 87 mg/dL 0-130 TSH 3.60 m[iU]/mL 0.36-3.74 Office Visit: Meds Check - Toxicology drug screen, urine, qualitative negative Encounters Code Encounter Date Provider Facility [facility]-[id number] Vst-Est Level V 14:26:27 CDT Aneudy Childers MD [facility] CPT-46750 Level 4 Est. Patient 17:05:37 CDT Baltazar Childers MD [facility] CPT-39224 Level 4 Est. Patient 16:21:19 CORPORATE LOGISTICS MANAGER Baltazar Childers MD [facility]-03845 Level 4 Est. Patient 12:25:11 CDT Baltazar Childers MD [facility]-94848 Level 4 Est. Patient 14:22:31 CDT Baltazar Childers MD [facility]-47241 Level 4 Est. Patient 15:44:38 [facility] Est. Patient 11:34:17 CDT Baltazar Childers MD [facility]-44917 Level 3 Est. Patient 16:40:40 CDT Baltazar Childers MD [facility] CPT-05454 Level 4 Est. Patient 10:41:24 CDT Baltazar Childers MD [facility]-91445 Level 4 Est. Patient 16:01:48 CDT Baltazar Childers MD [facility] CPT-91297 Level 4 Est. Patient 16:54:07 CORPORATE LOGISTICS MANAGER Baltazar Childers MD [facility]-71850 Level 4 Est. Patient 15:42:12 CDT Baltazar Childers MD [facility] CPT-46824 Level 4 Est. Patient 11:29:55 CDT Baltazar Childers MD [facility] CPT-33252 Level 4 Est. Patient 14:15:19 CDT Baltazar Childers MD [facility] CPT-31168 Level 4 Est. Patient 12:20:13 CDT Baltazar Childers MD [facility] CPT-40541 Level 4 Est. Patient 14:52:45 CORPORATE LOGISTICS MANAGER Baltazar Childers MD [facility] CPT-56264 Level 4 Est. Patient 14:18:34 CORPORATE LOGISTICS MANAGER Baltazar Childers MD [facility] CPT-27657 Level 4 Est. Patient 15:18:29 CDT Baltazar Childers MD [facility] CPT-45686 Level 3 Est. Patient 12:45:34 CDT Baltazar Childers MD [facility] CPT-00987 Level 3 Est. Patient 10:10:11 CDT Baltazar Childers MD [facility] CPT-56570 Level 3 Est. Patient 14:07:50 CDT Baltazar Childers MD [facility] CPT-70117 Level 4 Est. Patient 12:26:10 CORPORATE LOGISTICS MANAGER Baltazar Childers MD [facility] CPT-58060 Level 4 Est. Patient 14:45:38 CDT Baltazar Childers MD [facility] CPT-80219 Level 4 New Patient 12:30:48 CDT Baltazar hinton MD [facility] Procedures Code Procedure Name Date Entry Date Standard Desc ription CPT-000 Give Appropriate Flu Vaccine 12:25:14 CDT 2 CPT-74256 First Vx - Ix admin via ID I M or jet injects without counseling by physician 13:08:59 CDT CPT-37853 Fluzone Quadrivalent Intramuscular Suspe nsion 0.5 ML 13:08:59 CDT CPT-29742 Venipuncture Draw Fee 12:04:12 CDT CPT-34747 Lipid - LAB USE ONLY 17:39:15 CORPORATE LOGISTICS MANAGER 9 CPT-36410 HGBA1C - LAB USE ONLY 17:39:15 CORPORATE LOGISTICS MANAGER CPT-41235 CMP - LAB USE ONLY 17:39:14 CORPORATE LOGISTICS MANAGER CPT-86206 Venipuncture Draw Fee 17:39:14 CORPORATE LOGISTICS MANAGER CPT-91659 First Vx - Ix admin via ID I M or jet injects without counseling by physician 16:55:17 CORPORATE LOGISTICS MANAGER CPT-82842 Fluzone Quadrivalent Intramuscular Suspe nsion 0.5 ML 16:55:17 CORPORATE LOGISTICS MANAGER CPT-70079 Renal Panel - LAB USE ONLY 17:39:20 CDT 201 10/31/07 CPT-40060 CBC - LAB USE ONLY 17:39:20 CDT CPT-39187 Venipuncture Draw Fee 17:39:20 CDT CPT-98741 Venipuncture Draw Fee 14:33:30 CDT CPT-56528 Renal Panel - LAB USE ONLY 14:33:30 CDT 201 10/31/07 CPT-48547 CBC - LAB USE ONLY 14:33:29 CDT CPT-78955 Venipuncture Draw Fee 14:50:21 CORPORATE LOGISTICS MANAGER CPT-80474 Immunization Single Admin 17:35:35 CDT 2014 CPT-03460 Fluzone Quadrivalent preservative free ( >=3yrs.) 17:35:35 CDT CPT-94398 Venipuncture Draw Fee 12:10:27 CORPORATE LOGISTICS MANAGER CPT-60327 Fluzone Quadrivalent Intramuscular Suspe nsion 0.5 ML 10:49:13 CDT CPT-10284 First Vx Component - Ix admi n via ID IM or jet inj without physician counseling 15:17:19 CORPORATE LOGISTICS MANAGER CPT-61725 Pneumovax 15:17:19 CORPORATE LOGISTICS MANAGER CPT-33903 Pneumovax 14:52:45 CORPORATE LOGISTICS MANAGER CPT-51151 Venipuncture Draw Fee 14:06:30 CORPORATE LOGISTICS MANAGER CPT-000 Give Appropriate Flu Vaccine 14:18:34 CORPORATE LOGISTICS MANAGER 2 CPT-98746 Administration single or combination vac cine inc oral 14:46:00 CORPORATE LOGISTICS MANAGER CPT-14995 Influenza split virus > age 3 14:46:00 CORPORATE LOGISTICS MANAGER CPT-OV Office Visit 19:13:16 CDT CPT-75324 Zostavax 18:41:56 CDT CPT-06623 Administration single or combination vac cine inc oral 12:56:39 CDT CPT-78183 Zoster Vaccine (Zostavax) 12:56:39 CDT 2012 CPT-73197 Venipuncture Draw Fee 10:58:57 CDT CPT-80242 Sono pelvis non OB uterus ovaries cervix 17:45:04 CDT CPT-30540 Sono retroperitoneal complete kidneys an d bladder 17:14:36 CDT CPT-OV Office Visit 14:59:38 CORPORATE LOGISTICS MANAGER CPT-J1070 Depo Testosterone 100 mg 14:50:13 CDT 03/05 CPT-87585 Abx/Therapy Injection 14:50:13 CDT CPT-45625 Administration single or combination vac cine inc oral 14:34:43 CDT CPT-30736 Influenza split virus > age 3 14:34:43 CDT CPT-J1070 Depo Testosterone 100 mg 17:37:13 CDT 01/11 CPT-31272 Abx/Therapy Injection 17:37:13 CDT CPT-22169 Venipuncture Draw Fee 16:30:13 CDT CPT-35272 Venipuncture Draw Fee 16:29:43 CDT CPT-J1070 Depo Testosterone 100 mg 14:45:38 CDT 01/11
--- OUTSIDE RECORDS SUMMARY | 2019-10-27 12:33 | XMS REPORT | Clinical Summary ---
Author Author Admin, Elba Lance [employer] [facility] Address Unknown Phone Unavailable Allergies, Adverse 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 [employer] Benign neoplasm of colon PERIPHERAL NEUROPATHY 356.9 [...] sug ar BID Dx: E11.65 GLUCOSE BLOOD 07158886244 Active KENDALL Juarez Active NORTRIPTYLINE HCL 50 MG ORAL CAPSULE 1 twice a day for neuropathy 2 NORTRIPTYLINE HCL 98296395337 Active Baltazar Childers MD Acti ve ASPIRIN 81 MG TBEC Take one (1) tablet by mouth daily ASPIRIN 09182959590 Active Baltazar Childers MD Active GABAPENTIN 300 MG ORAL CAPSULE 1 three times a day 201 12/03/26 GABAPENTIN 93201905772 No Longer Active Baltazar Childers MD Activ e LISINOPRIL 20 MG ORAL TABLET 1 tablet by mouth daily at night 2016 LISINOPRIL 28775944757 Active Baltazar Childers MD Active ZITHROMAX Z-ISAIAS 250 MG ORAL TABLET Take two tablets to day and then 1 tablet daily for 4 days AZITHROMYCIN 33700737042 No Longer A ctive Baltazar Childers MD Active LANTUS SOLOSTAR 100 UNIT/ML SUBCUTANEOUS SOLUTION PEN- INJECTOR 30 units SC daily INSULIN GLARGINE 72177151417 Active Baltazar Childers MD Active AMLODIPINE BESYLATE 5 MG ORAL TABLET 1 tab daily for HTN AMLODIPINE BESYLATE 28508740734 Active Baltazar Childers MD Active SYNTHROID 100 MCG ORAL TABLET 1 tablet by mouth daily LEVOTHYROXINE SODIUM 77656305316 Active Baltazar Childers MD Active GLIPIZIDE 10 MG ORAL TABLET take 2 tablets twice daily GLIPIZIDE 00506344856 Active Baltazar Childers MD Active SUCRALFATE 1 GM ORAL TABLET 1 four times a day to coat the stoma ch SUCRALFATE 87744732514 No Longer Active Baltazar Childers MD Active PEN NEEDLES 31G X 6 MM use 1 daily INSULIN PEN NE EDLE 31618477926 Active KENDALL Juarez Active TOZULEIKA SOLOSTAR 300 UNIT/ML SUBCUTANEOUS SOLUTION PEN- INJECTOR 10 units SC daily INSULIN GLARGINE 44409919259 No Longer Active Rola ARGUETA Active NAPROXEN SODIUM 220 MG ORAL TABLET 1 three times a day as needed NAPROXEN SODIUM 37368096840 No Longer Active Baltazar Childers MD Active ATORVASTATIN CALCIUM 20 MG ORAL TABLET Take 1 tab daily ATORVASTATIN CALCIUM 56586455878 Active Baltazar Childers MD A ctive FUROSEMIDE 40 MG ORAL TABLET Take one by mouth daily FUROSEMIDE 05807628201 Active Baltazar Childers MD Active LISINOPRIL 20 MG ORAL TABLET Take one by mouth daily at bedtime LISINOPRIL 16028859985 No Longer Active Baltazar Childers MD Active ONETOUCH ULTRA BLUE IN VITRO STRIP Test twice a day 07/11/11 GLUCOSE BLOOD 12490882991 No Longer Active Baltazar Childers MD Acti ve TRUEPLUS LANCETS 33G Test twice a day LANCETS 6985071 4805 Active KENDALL Juarez Active TRUEDRAW LANCING DEVICE Test twice a day LANCET DEVICES 77591804868 Active Baltazar Childers MD Active TRUETRACK BLOOD GLUCOSE w/Device KIT Test twice a day BLOOD GLUCOSE MONITORING SUPPL 26390529137 Active Baltazar Childers MD Activ e HYDROCODONE-ACETAMINOPHEN 7.5-325 MG ORAL TABLET Take 1 tab every 6-8 hours PRN HYDROCODONE-ACETAMINOPHEN 90159646945 Active Baltazar Nickerson MD Active GABAPENTIN 300 MG ORAL CAPSULE 1 po qd x 2 days, then 1 po BID x 2 days, then 1 po TID GABAPENTIN 91588515580 No Longer Active Baltazar Childers MD Active TRAMADOL HCL 50 MG ORAL TABLET 1 twice a day as needed for pain 201 07/27/28 TRAMADOL HCL 33486029062 Active Baltazar Childers MD Active NAPROXEN 500 MG ORAL TABLET 1 tablet by mouth twice daily NAPROXEN 29471374383 No Longer Active Baltazar Childers MD Active PROAIR HFA 108 (90 Base) MCG/ACT INHALATION AEROSOL SO LUTION 2 puffs four times a day as needed ALBUTEROL SULFATE 13226396582 Active R gilberto Childers MD Active DEPO-TESTOSTERONE 200 MG/ML INTRAMUSCULAR SOLUTION as directed TESTOSTERONE CYPIONATE 04780216898 No Longer Active Baltazar Childers MD Active LIPITOR 20 MG ORAL TABLET Take one by mouth daily in evening ATORVASTATIN CALCIUM 46232685924 No Longer Active Baltazar Childers MD Active CRESTOR 10 MG ORAL TABLET 1 by mouth every day ROSUVASTATIN CALCIUM 41783202249 No Longer Active Baltazar Childers MD Active PHENTERMINE HCL 37.5 MG ORAL TABLET Take one by mouth daily PHENTERMINE HCL 10203897067 No Longer Active Baltazar Childers MD Ac tive ROBAXIN-750 750 MG ORAL TABLET Take one by mouth daily METHOCARBAMOL 60242438350 Active KENDALL Juarez Active TIZANIDINE HCL 4 MG ORAL TABLET 1 daily as needed for muscle spa sm TIZANIDINE HCL 64083001231 No Longer Active Dawna Salazar RN Active [id number]-[id number] 50-325-40 MG ORAL TABLET 1 fo ur times a day as needed for heacache [id number] 38516151101 Active Baltazar Childers MD Active SUMATRIPTAN SUCCINATE 100 MG ORAL TABLET 1 tablet by m outh at onset of migraine as needed SUMATRIPTAN SUCCINATE 05296012731 Active KENDALL Restrpeo Active LORATADINE 10 MG ORAL TABLET Take one by mouth daily LORATADINE 70723222028 Active KENDALL Juarez Active OMEPRAZOLE 20 MG ORAL CAPSULE DELAYED RELEASE Take one by mouth jostin ly OMEPRAZOLE 94079060788 Active Baltazar Childers MD Active HYDROXYZINE HCL 25 MG ORAL TABLET Take one by mouth daily HYDROXYZINE HCL 09915001127 Active Baltazar Childers MD Active ALPRAZOLAM 1 MG ORAL TABLET 1 tablet by mouth daily at bedti me for restless leg ALPRAZOLAM 06723933477 Active Baltazar Childers MD Active METFORMIN HCL 1000 MG ORAL TABLET Take one by mouth twice daily METFORMIN HCL 20208637921 Active Baltazar Childers MD Active TIZANIDINE HCL 4 MG ORAL TABLET 1 daily as needed for muscle spa sm TIZANIDINE HCL 4 MG ORAL TABLET 542383 TIZANIDINE HCL Inactive PHENTERMINE HCL 37.5 MG ORAL TABLET Take one by mouth daily PHENTERMINE HCL 37.5 MG ORAL TABLET 507107 PHENTERMINE HCL Inac tive CRESTOR 10 MG ORAL TABLET 1 by mouth every day CRESTOR 10 MG ORAL TABLET 553445 ROSUVASTATIN CALCIUM Inactive LIPITOR 20 MG ORAL TABLET Take one by mouth daily in evening LIPITOR 20 MG ORAL TABLET 076333 ATORVASTATIN CALCIUM Inactive DEPO-TESTOSTERONE 200 MG/ML INTRAMUSCULAR SOLUTION as directed DEPO-TESTOSTERONE 200 MG/ML INTRAMUSCULAR SOLUTION 843464 RUFINO TOSTERONE CYPIONATE Inactive NAPROXEN 500 MG ORAL TABLET 1 tablet by mouth twice daily NAPROXEN 500 MG ORAL TABLET 958013 NAPROXEN Inactive GABAPENTIN 300 MG ORAL CAPSULE 1 po qd x 2 days, then 1 po BID x 2 days, then 1 po TID GABAPENTIN 300 MG ORAL CAPSULE 450773 GABAP ENTIN Inactive ONETOUCH ULTRA BLUE IN VITRO STRIP Test twice a day 07/11/11 ONETOUCH ULTRA BLUE IN VITRO STRIP GLUCOSE BLOOD Inact amie NAPROXEN SODIUM 220 MG ORAL TABLET 1 three times a day as needed NAPROXEN SODIUM 220 MG ORAL TABLET 703651 NAPROXEN SODI UM Inactive TOUJEO SOLOSTAR 300 UNIT/ML SUBCUTANEOUS SOLUTION PEN- INJECTOR 10 units SC daily TOUJEO SOLOSTAR 300 UNIT/ML SUBCUTANEOUS SOLUTION PEN-INJECTOR INSULIN GLARGINE Inactive SUCRALFATE 1 GM ORAL TABLET 1 four times a day to coat the stoma ch SUCRALFATE 1 GM ORAL TABLET 777050 SUCRALFATE Inac tive GABAPENTIN 300 MG ORAL CAPSULE 1 three times a day 201 12/03/26 GABAPENTIN 300 MG ORAL CAPSULE 831125 GABAPENTIN Inactive ZITHROMAX Z-ISAIAS 250 MG ORAL TABLET Take two tablets to day and then 1 tablet daily for 4 days ZITHROMAX Z-ISAIAS 250 MG ORAL TAB LET 300444 AZITHROMYCIN Inactive Immunizations Vaccine Administration Date Value Standard Floyd cription pneumococcal immunization administered Pneumovax 23 [CVX33] pneumococcal polysaccharide vaccine, 23 valent Seasonal influenza vaccine, injectable, containing preservative, for > 3 years old (Afluria, FluLaval, Fluzone, Fluvirin, Fluarix, Agriflu(>= 18 yo)) Fluzone (>3 yrs.) [[id number]] Influenza, seasonal, inject able Seasonal influenza vaccine, injectable, containing preservative, for > 3 years old (Afluria, FluLaval, Fluzone, Fluvirin, Fluarix, Agriflu(>= 18 yo)) Fluzone (>3 yrs.) [RHB500] Influenza, seasonal, inject able Vital Signs Date [...] - Chem istry sodium, serum 139 mmol/L 246-669 4200/10/03 potassium, serum 4.7 mmol/L 3.5-5.2 chloride, serum 98 mmol/L 98-107 carbon dioxide, venous blood 28.7 mmol/L 21.0-32 .0 blood glucose 218 mg/dL 65-110 calcium, serum 9.8 mg/dL 8.5-10.1 urea nitrogen, blood 19 mg/dL 7-18 creatinine, serum 1.68 mg/dL 0.60-1.30 sodium, serum 139 mmol/L 713-164 0672/06/26 potassium, serum 4.8 mmol/L 3.5-5.2 chloride, serum 102 mmol/L 98-107 carbon dioxide, venous blood 29.1 mmol/L 21.0-32 .0 blood glucose 179 mg/dL 65-95 calcium, serum 9.7 mg/dL 8.5-10.1 urea nitrogen, blood 31 mg/dL 7-18 creatinine, serum 1.97 mg/dL 0.60-1.30 Lab Report: CBC, Renal Panel - Chemistry sodium, serum 142 mmol/L 831-289 5157/08/11 potassium, serum 4.8 mmol/L 3.5-5.2 chloride, serum [...] (L) - Chemistry cholesterol, serum 209 mg/dL 305-376 4864/12/27 triglyceride, serum, fasting 329 mg/dL 30-200 HDL cholesterol, serum 56 mg/dL 32-60 LDL cholesterol, serum 87 mg/dL 0-130 TSH 3.60 m[iU]/mL 0.36-3.74 Office Visit: Meds Check - Toxicology drug screen, urine, qualitative negative Encounters Code Encounter Date Provider Facility [facility]-[id number] Vst-Est Level V 14:26:27 CDT Aneudy Childers MD [facility] CPT-77554 Level 4 Est. Patient 17:05:37 CDT Baltazar Childers MD [facility] CPT-04265 Level 4 Est. Patient 16:21:19 INFORMATION TECHNOLOGY ACCOUNT MANAGER Baltazar Childers MD [facility]-66570 Level 4 Est. Patient 12:25:11 CDT Baltazar Childers MD [facility]-19128 Level 4 Est. Patient 14:22:31 CDT Baltazar Childers MD [facility]-57284 Level 4 Est. Patient 15:44:38 [facility] Level 4 Est. Patient 11:34:17 CDT Baltazar Childers MD [facility]-67618 Level 3 Est. Patient 16:40:40 CDT Baltazar Childers MD [facility] CPT-47127 Level 4 Est. Patient 10:41:24 CDT Baltazar Childers MD [facility]-27812 Level 4 Est. Patient 16:01:48 CDT Baltazar Childers MD [facility] CPT-34954 Level 4 Est. Patient 16:54:07 INFORMATION TECHNOLOGY ACCOUNT MANAGER Baltazar Childers MD [facility] CPT-72841 Level 4 Est. Patient 15:42:12 CDT Baltazar Childers MD [facility] CPT-50661 Level 4 Est. Patient 11:29:55 CDT Baltazar Childers MD [facility] CPT-83475 Level 4 Est. Patient 14:15:19 CDT Baltazar Childers MD [facility] CPT-49499 Level 4 Est. Patient 12:20:13 CDT Baltazar Childers MD [facility] CPT-28932 Level 4 Est. Patient 14:52:45 INFORMATION TECHNOLOGY ACCOUNT MANAGER Baltazar Childers MD [facility] CPT-40971 Level 4 Est. Patient 14:18:34 INFORMATION TECHNOLOGY ACCOUNT MANAGER Baltazar Childers MD [facility] CPT-00147 Level 4 Est. Patient 15:18:29 CDT Baltazar Childers MD [facility] CPT-85172 Level 3 Est. Patient 12:45:34 CDT Baltazar Childers MD [facility] CPT-25258 Level 3 Est. Patient 10:10:11 CDT Baltazar Childers MD [facility] CPT-06327 Level 3 Est. Patient 14:07:50 CDT Baltazar Childers MD [facility] CPT-33721 Level 4 Est. Patient 12:26:10 INFORMATION TECHNOLOGY ACCOUNT MANAGER Baltazar Childers MD [facility] CPT-01882 Level 4 Est. Patient 14:45:38 CDT Baltazar Childers MD [facility] CPT-66177 Level 4 New Patient 12:30:48 CDT Baltazar hinton MD [facility] Procedures Code Procedure Name Date Entry Date Standard Desc ription CPT-000 Give Appropriate Flu Vaccine 12:25:14 CDT 2 CPT-64766 First Vx - Ix admin via ID I M or jet injects without counseling by physician 13:08:59 CDT CPT-85846 Fluzone Quadrivalent Intramuscular Suspe nsion 0.5 ML 13:08:59 CDT CPT-18712 Venipuncture Draw Fee 12:04:12 CDT CPT-30507 Lipid - LAB USE ONLY 17:39:15 INFORMATION TECHNOLOGY ACCOUNT MANAGER 9 CPT-45269 HGBA1C - LAB USE ONLY 17:39:15 INFORMATION TECHNOLOGY ACCOUNT MANAGER CPT-19462 CMP - LAB USE ONLY 17:39:14 INFORMATION TECHNOLOGY ACCOUNT MANAGER CPT-90688 Venipuncture Draw Fee 17:39:14 INFORMATION TECHNOLOGY ACCOUNT MANAGER CPT-32818 First Vx - Ix admin via ID I M or jet injects without counseling by physician 16:55:17 INFORMATION TECHNOLOGY ACCOUNT MANAGER CPT-92135 Fluzone Quadrivalent Intramuscular Suspe nsion 0.5 ML 16:55:17 INFORMATION TECHNOLOGY ACCOUNT MANAGER CPT-92486 Renal Panel - LAB USE ONLY 17:39:20 CDT 201 10/31/07 CPT-63189 CBC - LAB USE ONLY 17:39:20 CDT CPT-86747 Venipuncture Draw Fee 17:39:20 CDT CPT-37358 Venipuncture Draw Fee 14:33:30 CDT CPT-97955 Renal Panel - LAB USE ONLY 14:33:30 CDT 201 10/31/07 CPT-28216 CBC - LAB USE ONLY 14:33:29 CDT CPT-64652 Venipuncture Draw Fee 14:50:21 INFORMATION TECHNOLOGY ACCOUNT MANAGER CPT-66883 Immunization Single Admin 17:35:35 CDT 2014 CPT-61972 Fluzone Quadrivalent preservative free ( >=3yrs.) 17:35:35 CDT CPT-95946 Venipuncture Draw Fee 12:10:27 INFORMATION TECHNOLOGY ACCOUNT MANAGER CPT-34941 Fluzone Quadrivalent Intramuscular Suspe nsion 0.5 ML 10:49:13 CDT CPT-80034 First Vx Component - Ix admi n via ID IM or jet inj without physician counseling 15:17:19 INFORMATION TECHNOLOGY ACCOUNT MANAGER CPT-90400 Pneumovax 15:17:19 INFORMATION TECHNOLOGY ACCOUNT MANAGER CPT-48776 Pneumovax 14:52:45 INFORMATION TECHNOLOGY ACCOUNT MANAGER CPT-92395 Venipuncture Draw Fee 14:06:30 INFORMATION TECHNOLOGY ACCOUNT MANAGER CPT-000 Give Appropriate Flu Vaccine 14:18:34 INFORMATION TECHNOLOGY ACCOUNT MANAGER 2 CPT-29888 Administration single or combination vac cine inc oral 14:46:00 INFORMATION TECHNOLOGY ACCOUNT MANAGER CPT-17691 Influenza split virus > age 3 14:46:00 INFORMATION TECHNOLOGY ACCOUNT MANAGER CPT-OV Office Visit 19:13:16 CDT CPT-98331 Zostavax 18:41:56 CDT CPT-50990 Administration single or combination vac cine inc oral 12:56:39 CDT CPT-46249 Zoster Vaccine (Zostavax) 12:56:39 CDT 2012 CPT-62401 Venipuncture Draw Fee 10:58:57 CDT CPT-21116 Sono pelvis non OB uterus ovaries cervix 17:45:04 CDT CPT-99466 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
--- OUTSIDE RECORDS SUMMARY | 2019-10-27 12:34 | XMS REPORT | Clinical Summary ---
Author Author Abhishek, Elba Lance [facility] Address Unknown Phone Unavailable 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 [employer] Benign neoplasm of colon PERIPHERAL NEUROPATHY 356.9 [...] MISC Test twice a day LANCET S 36894887807 Active Baltazar Childers MD Active TRUEDRAW LANCING DEVICE MISC Test twice a day L ANCET DEVICES 57794431863 Active Baltazar Childers MD Active TRUETRACK TEST STRP Test twice a day GLUCOSE BLOO D 63641734360 Active Baltazar Childers MD Active TRUETRACK BLOOD GLUCOSE W/DEVICE KIT Test twice a day BLOOD GLUCOSE MONITORING SUPPL 20749586020 Active Bella Suarez [employer]NT Active HYDROCODONE-ACETAMINOPHEN 7.5-325 MG TABS Take 1 tab every 6-8 hour s PRN HYDROCODONE-ACETAMINOPHEN 87925414516 Active Baltazar Childers MD Active NORTRIPTYLINE HCL 50 MG CAPS 1 every night for neuropathy 4 NORTRIPTYLINE HCL 79252029476 Active Baltazar Childers MD Acti ve GABAPENTIN 300 MG CAPS 1 three times a day GABAPE NTIN 42672060182 Active Baltazar Childers MD Active GABAPENTIN 300 MG CAPS 1 po qd x 2 days, then 1 po BID x 2 d ays, then 1 po TID GABAPENTIN 24164885263 No Longer Active Baltazar silverman MD Active TRAMADOL HCL 50 MG TABS 1 twice a day as needed for pain TRAMADOL HCL 56060358699 Active Baltazar Childers MD Active NAPROXEN 500 MG TABS 1 tablet by mouth twice daily NAPROXEN 34171815856 No Longer Active Baltazar Childers MD Active PROAIR HFA 108 (90 BASE) MCG/ACT AERS 2 puffs four times a d ay as needed ALBUTEROL SULFATE 71044103290 Active Baltazar Childers MD Active DEPO-TESTOSTERONE 200 MG/ML OIL as directed RUFINO TOSTERONE CYPIONATE 81671085900 No Longer Active Baltazar Childers MD Active LIPITOR 20 MG TABS Take one by mouth daily in evening ATORVASTATIN CALCIUM 00595063456 No Longer Active Baltazar Childers MD Activ e CRESTOR 10 MG TABS 1 by mouth every day R OSUVASTATIN CALCIUM 96304213913 No Longer Active Baltazar Childers MD Activ e PHENTERMINE HCL 37.5 MG TABS Take one by mouth daily 2 PHENTERMINE HCL 21901176998 No Longer Active Batlazar Childers MD Activ e ROBAXIN-750 750 MG TABS Take one by mouth daily ME THOCARBAMOL 52969377097 Active Baltazar Childers MD Active TIZANIDINE HCL 4 MG TABS 1 daily as needed for muscle spasm 2011 TIZANIDINE HCL 14400495327 No Longer Active Dawna Salazar RN Active ONETOUCH ULTRA BLUE STRP Test twice a day GLUCO SE BLOOD 47149599600 Active Baltazar Childers MD Active UWYQMNRFSF-PWMW-HLVOYEAU 50-325-40 MG TABS 1 four time s a day as needed for heacache [id number] 05188379150 Active Baltazar Childers MD Active SUMATRIPTAN SUCCINATE 100 MG TABS 1 tablet by mouth at onset of migraine as needed SUMATRIPTAN SUCCINATE 74825773704 Active Baltazar barron MD Active LORATADINE 10 MG TABS Take one by mouth daily LORATADINE 99761492279 Active Baltazar Childers MD Active FUROSEMIDE 40 MG TABS Take one by mouth daily FUROSEMIDE 96151241185 Active Baltazar Childers MD Active LISINOPRIL 20 MG TABS Take one by mouth daily at bedtime LISINOPRIL 51391594283 Active Baltazar Childers MD Active OMEPRAZOLE 20 MG CPDR Take one by mouth daily OMEPRAZOLE 44792319905 Active Baltazar Childers MD Active HYDROXYZINE HCL 25 MG TABS Take one by mouth daily HYDROXYZINE HCL 52832126720 Active Baltazar Childers MD Active GLIPIZIDE 10 MG TABS 1 tablet by mouth twice daily GLIPIZIDE 81733407073 Active Baltazar Childers MD Active ALPRAZOLAM 1 MG TABS 1 tablet by mouth daily at bedtime for restles s leg ALPRAZOLAM 16175787211 Active Baltazar Childers MD Active METFORMIN HCL 1000 MG TABS Take one by mouth twice daily METFORMIN HCL 22248986440 Active Baltazar Childers MD Active TIZANIDINE HCL 4 MG TABS 1 daily as needed for muscle spasm 2011 TIZANIDINE HCL 4 MG TABS 088887 TIZANIDINE HCL Inactiv e PHENTERMINE HCL 37.5 MG TABS Take one by mouth daily 2 PHENTERMINE HCL 37.5 MG TABS 101753 PHENTERMINE HCL Inactive CRESTOR 10 MG TABS 1 by mouth every day C RESTOR 10 MG TABS ROSUVASTATIN CALCIUM Inactive LIPITOR 20 MG TABS Take one by mouth daily in evening LIPITOR 20 MG TABS 956530 ATORVASTATIN CALCIUM Inactive DEPO-TESTOSTERONE 200 MG/ML OIL as directed 8 DEPO-TESTOSTERONE 200 MG/ML OIL 910707 TESTOSTERONE CYPIONATE Inactive NAPROXEN 500 MG TABS 1 tablet by mouth twice daily 201 07/27/22 NAPROXEN 500 MG TABS 007552 NAPROXEN Inactive GABAPENTIN 300 MG CAPS 1 po qd x 2 days, then 1 po BID x 2 d ays, then 1 po TID GABAPENTIN 300 MG CAPS 346356 GABAPENTIN Inact amie Immunizations Vaccine Administration Date Value Standard Floyd cription pneumococcal immunization administered Pneumovax 23 [CVX33] pneumococcal polysaccharide vaccine, 23 valent Seasonal influenza vaccine, injectable, containing preservative, for > 3 years old (Afluria, FluLaval, Fluzone, Fluvirin, Fluarix, Agriflu(>= 18 yo)) Fluzone (>3 yrs.) [[id number]] Influenza, seasonal, inject able Seasonal influenza vaccine, injectable, containing preservative, for > 3 years old (Afluria, FluLaval, Fluzone, Fluvirin, Fluarix, Agriflu(>= 18 yo)) Fluzone (>3 yrs.) [JPU012] Influenza, seasonal, inject able Vital Signs Date [...] - Chem istry sodium, serum 140 mmol/L 301-251 6244/05/05 potassium, serum 4.9 mmol/L 3.5-5.2 chloride, serum [...] Panel - Chemistry sodium, serum 139 mmol/L 319-297 1698/01/20 potassium, serum 5.3 mmol/L 3.5-5.2 chloride, serum [...] mg/g mg/g{creat} 0-29 cholesterol, serum 319 mg/dL 217-371 7533/08/21 triglyceride, serum, fasting 546 mg/dL 30-200 HDL cholesterol, serum 39 mg/dL 32-96 LDL cholesterol, serum 167.00 mg/dL 5.00-130.00 hemoglobin A1C, blood, as % of total hemoglobin 7.7 % 4.3-6.0 sodium, serum 138 mmol/L 369-676 2153/08/21 potassium, serum 4.3 mmol/L 3.5-5.2 chloride, serum [...] 0-19 Encounters Code Encounter Date Provider Facility CPT-14276 Level 4 Est. Patient 11:29:55 CDT Baltazar Childers MD [facility] CPT-10319 Level 4 Est. Patient 14:15:19 CDT Baltazar Childers MD [facility] CPT-26003 Level 4 Est. Patient 12:20:13 CDT Baltazar Childers MD [facility] CPT-24046 Level 4 Est. Patient 14:52:45 SHANK FAKER Baltazar Childers MD [facility] CPT-76556 Level 4 Est. Patient 14:18:34 SHANK FAKER Baltazar Childers MD [facility] CPT-70857 Level 4 Est. Patient 15:18:29 CDT Baltazar Childers MD [facility] CPT-69596 Level 3 Est. Patient 12:45:34 CDT Baltazar Childers MD [facility] CPT-77272 Level 3 Est. Patient 10:10:11 CDT Baltazar Childers MD [facility] CPT-07556 Level 3 Est. Patient 14:07:50 CDT Baltazar Childers MD [facility] CPT-09048 Level 4 Est. Patient 12:26:10 SHANK FAKER Baltazar Childers MD [facility] CPT-07108 Level 4 Est. Patient 14:45:38 CDT Baltazar Childers MD [facility] CPT-90432 Level 4 New Patient 12:30:48 CDT Baltazar hinton MD [facility] Procedures Code Procedure Name Date Entry Date Standard Desc ription CPT-44946 Venipuncture Draw Fee 12:10:27 SHANK FAKER CPT-54745 Fluzone Quadrivalent Intramuscular Suspe nsion 0.5 ML 10:49:13 CDT CPT-56574 First Vx Component - Ix admi n via ID IM or jet inj without physician counseling 15:17:19 SHANK FAKER CPT-48656 Pneumovax 15:17:19 SHANK FAKER CPT-83275 Pneumovax 14:52:45 SHANK FAKER CPT-42746 Venipuncture Draw Fee 14:06:30 SHANK FAKER CPT-000 Give Appropriate Flu Vaccine 14:18:34 SHANK FAKER 2 CPT-77599 Administration single or combination vac cine inc oral 14:46:00 SHANK FAKER CPT-27429 Influenza split virus > age 3 14:46:00 SHANK FAKER CPT-OV Office Visit 19:13:16 CDT CPT-47112 Zostavax 18:41:56 CDT CPT-91610 Administration single or combination vac cine inc oral 12:56:39 CDT CPT-74701 Zoster Vaccine (Zostavax) 12:56:39 CDT 2012 CPT-31789 Venipuncture Draw Fee 10:58:57 CDT CPT-03694 Sono pelvis non OB uterus ovaries cervix 17:45:04 CDT CPT-00538 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
--- OUTSIDE RECORDS SUMMARY | 2019-10-27 12:34 | XMS REPORT | Clinical Summary ---
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 Benign neoplasm of colon PERIPHERAL NEUROPATHY 356.9 [...] ronary atherosclerosis of unspecified type of vessel, penobscot or graft OTH NONSPC ABN FINDNG RAD&OTH [...] three times a day 201 12/03/26 GABAPENTIN 87466563241 No Longer Active Baltazar Childers MD Activ e LISINOPRIL 20 MG ORAL TABLET 1 tablet by mouth daily at night 2016 LISINOPRIL 42927514656 Active Baltazar Childers MD Active ZITHROMAX Z-ISAIAS 250 MG ORAL TABLET Take two tablets to day and then 1 tablet daily for 4 days AZITHROMYCIN 97810048965 No Longer A ctive Baltazar Childers MD Active LANTUS SOLOSTAR 100 UNIT/ML SUBCUTANEOUS SOLUTION PEN- INJECTOR 30 units SC daily INSULIN GLARGINE 47607335818 Active Baltazar Childers MD Active AMLODIPINE BESYLATE 5 MG ORAL TABLET 1 tab daily for HTN AMLODIPINE BESYLATE 07309833821 Active Baltazar Childers MD Active SYNTHROID 100 MCG ORAL TABLET 1 tablet by mouth daily LEVOTHYROXINE SODIUM 14462245091 Active Baltazar Childers MD Active GLIPIZIDE 10 MG ORAL TABLET take 2 tablets twice daily GLIPIZIDE 50270470244 Active Baltazar Childers MD Active SUCRALFATE 1 GM ORAL TABLET 1 four times a day to coat the stoma ch SUCRALFATE 85715078984 No Longer Active Baltazar Childers MD Active PEN NEEDLES 31G X 6 MM use 1 daily INSULIN PEN NE EDLE 70852643338 Active KENDALL Juarez Active CELINA POWERSOSTNAKITA 300 UNIT/ML SUBCUTANEOUS SOLUTION PEN- INJECTOR 10 units SC daily INSULIN GLARGINE 39619224385 No Longer Active Rola Godinez RMA Active NAPROXEN SODIUM 220 MG ORAL TABLET 1 three times a day as needed NAPROXEN SODIUM 25648437501 No Longer Active Baltazar Childers MD Active ATORVASTATIN CALCIUM 20 MG ORAL TABLET Take 1 tab daily ATORVASTATIN CALCIUM 91489584277 Active Baltazar Childers MD A ctive FUROSEMIDE 40 MG ORAL TABLET Take one by mouth daily FUROSEMIDE 66146405673 Active Jessy Arellano LPN Active LISINOPRIL 20 MG ORAL TABLET Take one by mouth daily at bedtime LISINOPRIL 00373824046 No Longer Active Baltazar Childers MD Active ONETOUCH ULTRA BLUE IN VITRO STRIP Test twice a day 07/11/11 GLUCOSE BLOOD 40988148082 No Longer Active Baltazar Childers MD Acti ve TRUEPLUS LANCETS 33G Test twice a day LANCETS 7874892 7833 Active KENDALL Juarez Active TRUEDRAW LANCING DEVICE Test twice a day LANCET DEVICES 43133670497 Active Baltazar Childers MD Active TRUETRACK TEST IN VITRO STRIP Test twice a day GLUCOSE BLOOD 32793997995 Active KENDALL Juarez Active TRUETRACK BLOOD GLUCOSE w/Device KIT Test twice a day BLOOD GLUCOSE MONITORING SUPPL 93745028019 Active Baltazar Childers MD Activ e HYDROCODONE-ACETAMINOPHEN 7.5-325 MG ORAL TABLET Take 1 tab every 6-8 hours PRN HYDROCODONE-ACETAMINOPHEN 20228405123 Active Baltazar Nickerson MD Active NORTRIPTYLINE HCL 50 MG ORAL CAPSULE 1 every night for neuropathy 2 NORTRIPTYLINE HCL 02133702550 Active Baltazar Childers MD Acti ve GABAPENTIN 300 MG ORAL CAPSULE 1 po qd x 2 days, then 1 po BID x 2 days, then 1 po TID GABAPENTIN 75315477958 No Longer Active Baltazar Childers MD Active TRAMADOL HCL 50 MG ORAL TABLET 1 twice a day as needed for pain 201 07/27/28 TRAMADOL HCL 77094256956 Active Baltazar Childers MD Active NAPROXEN 500 MG ORAL TABLET 1 tablet by mouth twice daily NAPROXEN 09032582898 No Longer Active Baltazar Childers MD Active PROAIR HFA 108 (90 Base) MCG/ACT INHALATION AEROSOL SO LUTION 2 puffs four times a day as needed ALBUTEROL SULFATE 12275638545 Active Paul Childers MD Active DEPO-TESTOSTERONE 200 MG/ML INTRAMUSCULAR SOLUTION as directed TESTOSTERONE CYPIONATE 21475802418 No Longer Active Baltazar Childers MD Active LIPITOR 20 MG ORAL TABLET Take one by mouth daily in evening ATORVASTATIN CALCIUM 43314165375 No Longer Active Baltazar Childers MD Active CRESTOR 10 MG ORAL TABLET 1 by mouth every day ROSUVASTATIN CALCIUM 75613995422 No Longer Active Baltazar Childers MD Active PHENTERMINE HCL 37.5 MG ORAL TABLET Take one by mouth daily PHENTERMINE HCL 04070107202 No Longer Active Baltazar Childers MD Ac tive ROBAXIN-750 750 MG ORAL TABLET Take one by mouth daily METHOCARBAMOL 46543366492 Active Baltazar Childers MD Active TIZANIDINE HCL 4 MG ORAL TABLET 1 daily as needed for muscle spa sm TIZANIDINE HCL 52594720368 No Longer Active Dawna Salazar RN Active YZQZNDUMER-DOOB-RYRBODEO 50-325-40 MG ORAL TABLET 1 fo ur times a day as needed for heacache [id number] 36585074894 Active Baltazar Childers MD Active SUMATRIPTAN SUCCINATE 100 MG ORAL TABLET 1 tablet by m outh at onset of migraine as needed SUMATRIPTAN SUCCINATE 10190291755 Active KENDALL Restrepo Active LORATADINE 10 MG ORAL TABLET Take one by mouth daily LORATADINE 87319675960 Active Baltazar Childers MD Active OMEPRAZOLE 20 MG ORAL CAPSULE DELAYED RELEASE Take one by mouth jostin ly OMEPRAZOLE 59231601061 Active Baltazar Childers MD Active HYDROXYZINE HCL 25 MG ORAL TABLET Take one by mouth daily HYDROXYZINE HCL 57597717016 Active Baltazar Childers MD Active ALPRAZOLAM 1 MG ORAL TABLET 1 [facility] 86977069153 Active Baltazar Childers MD Active METFORMIN HCL 1000 MG ORAL TABLET Take one by mouth twice daily METFORMIN HCL 34635383269 Active Baltazar Childers MD Active TIZANIDINE HCL 4 MG ORAL TABLET 1 daily as needed for muscle spa sm TIZANIDINE HCL 4 MG ORAL TABLET 898572 TIZANIDINE HCL Inactive PHENTERMINE HCL 37.5 MG ORAL TABLET Take one by mouth daily PHENTERMINE HCL 37.5 MG ORAL TABLET 940414 PHENTERMINE HCL Inac tive CRESTOR 10 MG ORAL TABLET 1 by mouth every day CRESTOR 10 MG ORAL TABLET 927895 ROSUVASTATIN CALCIUM Inactive LIPITOR 20 MG ORAL TABLET Take one by mouth daily in evening LIPITOR 20 MG ORAL TABLET 691394 ATORVASTATIN CALCIUM Inactive DEPO-TESTOSTERONE 200 MG/ML INTRAMUSCULAR SOLUTION as directed DEPO-TESTOSTERONE 200 MG/ML INTRAMUSCULAR SOLUTION 893493 RUFINO TOSTERONE CYPIONATE Inactive NAPROXEN 500 MG ORAL TABLET 1 tablet by mouth twice daily NAPROXEN 500 MG ORAL TABLET 216528 NAPROXEN Inactive GABAPENTIN 300 MG ORAL CAPSULE 1 po qd x 2 days, then 1 po BID x 2 days, then 1 po TID GABAPENTIN 300 MG ORAL CAPSULE 307903 GABAP ENTIN Inactive ONETOUCH ULTRA BLUE IN VITRO STRIP Test twice a day 07/11/11 ONETOUCH ULTRA BLUE IN VITRO STRIP GLUCOSE BLOOD Inact amie NAPROXEN SODIUM 220 MG ORAL TABLET 1 three times a day as needed NAPROXEN SODIUM 220 MG ORAL TABLET 713012 NAPROXEN SODI UM Inactive TOUJEO SOLOSTAR 300 UNIT/ML SUBCUTANEOUS SOLUTION PEN- INJECTOR 10 units SC daily TOUJEO SOLOSTAR 300 UNIT/ML SUBCUTANEOUS SOLUTION PEN-INJECTOR INSULIN GLARGINE Inactive SUCRALFATE 1 GM ORAL TABLET 1 four times a day to coat the stoma ch SUCRALFATE 1 GM ORAL TABLET 635978 SUCRALFATE Inac tive GABAPENTIN 300 MG ORAL CAPSULE 1 three times a day 201 12/03/26 GABAPENTIN 300 MG ORAL CAPSULE 925933 GABAPENTIN Inactive ZITHROMAX Z-ISAIAS 250 MG ORAL TABLET Take two tablets to day and then 1 tablet daily for 4 days ZITHROMAX Z-ISAIAS 250 MG ORAL TAB LET 930258 AZITHROMYCIN Inactive Immunizations Vaccine Administration Date Value Standard Floyd cription pneumococcal immunization administered Pneumovax 23 [CVX33] pneumococcal polysaccharide vaccine, 23 valent Seasonal influenza vaccine, injectable, containing preservative, for > 3 years old (Afluria, FluLaval, Fluzone, Fluvirin, Fluarix, Agriflu(>= 18 yo)) Fluzone (>3 yrs.) [YXS149] Influenza, seasonal, inject able Seasonal influenza vaccine, injectable, containing preservative, for > 3 years old (Afluria, FluLaval, Fluzone, Fluvirin, Fluarix, Agriflu(>= 18 yo)) Fluzone (>3 yrs.) [TCE270] Influenza, seasonal, inject able Vital Signs Date [...] - Chem istry sodium, serum 139 mmol/L 904-256 8053/10/03 potassium, serum 4.7 mmol/L 3.5-5.2 chloride, serum 98 mmol/L 98-107 carbon dioxide, venous blood 28.7 mmol/L 21.0-32 .0 blood glucose 218 mg/dL 65-110 calcium, serum 9.8 mg/dL 8.5-10.1 urea nitrogen, blood 19 mg/dL 7-18 creatinine, serum 1.68 mg/dL 0.60-1.30 Lab Report: Basic Metabolic Panel, HGBA1 C - Chemistry sodium, serum 143 mmol/L 761-505 0954/06/19 potassium, serum 5.9 mmol/L 3.5-5.2 chloride, serum 105 mmol/L 98-107 carbon dioxide, venous blood 30.2 mmol/L 21.0-32 .0 blood glucose 189 mg/dL 65-110 calcium, serum 9.7 mg/dL 8.5-10.1 urea nitrogen, blood 37 mg/dL 7-18 creatinine, serum 2.11 mg/dL 0.55-1.30 hemoglobin A1C, blood, as % of total hemoglobin 8.2 % 4.3-6.0 Lab Report: CBC, Renal Panel - Chemistry sodium, serum 142 mmol/L 564-285 1997/08/11 potassium, serum 4.8 mmol/L 3.5-5.2 chloride, serum [...] (L) - Chemistry cholesterol, serum 209 mg/dL 247-810 6069/12/27 triglyceride, serum, fasting 329 mg/dL 30-200 HDL cholesterol, serum 56 mg/dL 32-60 LDL cholesterol, serum 87 mg/dL 0-130 TSH 3.60 m[iU]/mL 0.36-3.74 Encounters Code Encounter Date Provider Facility CPT-50552 Level 4 Est. Patient 16:21:19 LENS MOLDER Baltazar Childers MD [facility] CPT-81920 Level 4 Est. Patient 12:25:11 CDT Baltazar Childers MD [facility]-79714 Level 4 Est. Patient 14:22:31 CDT Baltazar Childers MD [facility]-90372 Level 4 Est. Patient 15:44:38 CDT Shonnajean Parker APRN [facility]-10554 Level 4 Est. Patient 11:34:17 CDT Baltazar Childers MD [facility]-99574 Level 3 Est. Patient 16:40:40 CDT Baltazar Childers MD [facility]-40718 Level 4 Est. Patient 10:41:24 CDT Baltazar Childers MD [facility]-02942 Level 4 Est. Patient 16:01:48 CDT Baltazar Childers MD [facility]-17773 Level 4 Est. Patient 16:54:07 LENS MOLDER Baltazar Childers MD [facility]-64435 Level 4 Est. Patient 15:42:12 CDT Baltazar Childers MD [facility] CPT-89627 Level 4 Est. Patient 11:29:55 CDT Baltazar Childers MD [facility]-62861 Level 4 Est. Patient 14:15:19 CDT Baltazar Childers MD [facility]-40578 Level 4 Est. Patient 12:20:13 CDT Baltazar Childers MD [facility] CPT-13019 Level 4 Est. Patient 14:52:45 LENS MOLDER Baltazar Childers MD [facility]-49331 Level 4 Est. Patient 14:18:34 LENS MOLDER Baltazar Childers MD [facility]-07155 Level 4 Est. Patient 15:18:29 CDT Baltazar Childers MD [facility]-70582 Level 3 Est. Patient 12:45:34 CDT Baltazar Childers MD [facility] CPT-56483 Level 3 Est. Patient 10:10:11 CDT Baltazar Childers MD [facility] CPT-51623 Level 3 Est. Patient 14:07:50 CDT Baltazar Childers MD [facility] CPT-67683 Level 4 Est. Patient 12:26:10 LENS MOLDER Baltazar Childers MD [facility] CPT-41929 Level 4 Est. Patient 14:45:38 CDT Baltazar Childers MD [facility] CPT-42898 Level 4 New Patient 12:30:48 CDT Baltazar hinton MD [facility] Procedures Code Procedure Name Date Entry Date Standard Desc ription CPT-63532 First Vx - Ix admin via ID I M or jet injects without counseling by physician 13:08:59 CDT CPT-09888 Fluzone Quadrivalent Intramuscular Suspe nsion 0.5 ML 13:08:59 CDT CPT-27884 Venipuncture Draw Fee 12:04:12 CDT CPT-76223 Lipid - LAB USE ONLY 17:39:15 LENS MOLDER 9 CPT-52676 HGBA1C - LAB USE ONLY 17:39:15 LENS MOLDER CPT-24833 CMP - LAB USE ONLY 17:39:14 LENS MOLDER CPT-25492 Venipuncture Draw Fee 17:39:14 LENS MOLDER CPT-68436 First Vx - Ix admin via ID I M or jet injects without counseling by physician 16:55:17 LENS MOLDER CPT-71766 Fluzone Quadrivalent Intramuscular Suspe nsion 0.5 ML 16:55:17 LENS MOLDER CPT-37492 Renal Panel - LAB USE ONLY 17:39:20 CDT 201 10/31/07 CPT-07672 CBC - LAB USE ONLY 17:39:20 CDT CPT-35066 Venipuncture Draw Fee 17:39:20 CDT CPT-15356 Venipuncture Draw Fee 14:33:30 CDT CPT-21232 Renal Panel - LAB USE ONLY 14:33:30 CDT 201 10/31/07 CPT-36648 CBC - LAB USE ONLY 14:33:29 CDT CPT-18355 Venipuncture Draw Fee 14:50:21 LENS MOLDER CPT-77887 Immunization Single Admin 17:35:35 CDT 2014 CPT-29247 Fluzone Quadrivalent preservative free ( >=3yrs.) 17:35:35 CDT CPT-17323 Venipuncture Draw Fee 12:10:27 LENS MOLDER CPT-66738 Fluzone Quadrivalent Intramuscular Suspe nsion 0.5 ML 10:49:13 CDT CPT-91613 First Vx Component - Ix admi n via ID IM or jet inj without physician counseling 15:17:19 LENS MOLDER CPT-00730 Pneumovax 23 15:17:19 LENS MOLDER CPT-80740 Pneumovax 14:52:45 LENS MOLDER CPT-14809 Venipuncture Draw Fee 14:06:30 LENS MOLDER CPT-000 Give Appropriate Flu Vaccine 14:18:34 LENS MOLDER 2 CPT-93553 Administration single or combination vac cine inc oral 14:46:00 LENS MOLDER CPT-41119 Influenza split virus > age 3 14:46:00 LENS MOLDER CPT-OV Office Visit 19:13:16 CDT CPT-74488 Zostavax 18:41:56 CDT CPT-13341 Administration single or combination vac cine inc oral 12:56:39 CDT CPT-65605 Zoster Vaccine (Zostavax) 12:56:39 CDT 2012 CPT-18075 Venipuncture Draw Fee 10:58:57 CDT CPT-15003 Sono pelvis non OB uterus ovaries cervix 17:45:04 CDT CPT-54922 Sono retroperitoneal complete kidneys an d bladder 17:14:36 CDT CPT-OV Office Visit 14:59:38 LENS MOLDER CPT-J1070 Depo Testosterone 100 mg 14:50:13 CDT 03/05 CPT-62841 Abx/Therapy Injection 14:50:13 CDT CPT-54371 Administration single or combination vac cine inc oral 14:34:43 CDT CPT-00810 Influenza split virus > age 3 14:34:43 CDT CPT-J1070 Depo Testosterone 100 mg 17:37:13 CDT 01/11 CPT-55476 Abx/Therapy Injection 17:37:13 CDT CPT-19546 Venipuncture Draw Fee 16:30:13 CDT CPT-96840 Venipuncture Draw Fee 16:29:43 CDT CPT-J1070 Depo Testosterone 100 mg 14:45:38 CDT 01/11
--- OUTSIDE RECORDS SUMMARY | 2019-10-27 12:34 | XMS REPORT | Clinical Summary ---
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 Benign neoplasm of colon PERIPHERAL NEUROPATHY 356.9 [...] MISC use 1 daily INSULIN PEN NEEDLE 51073308797 Active Martita Herbert RMA Active TOUJEO SOLOSTAR 300 UNIT/ML SC SOPN 10 units SC daily INSULIN GLARGINE 61260082015 No Longer Active Martita Herbert RMA Active LANTUS SOLOSTAR 100 UNIT/ML SC SOPN 10 units SC daily INSULIN GLARGINE 87255344034 Active Martita Herbert RMA Active NAPROXEN SODIUM 220 MG ORAL TABS 1 three times a day as needed 2 NAPROXEN SODIUM 79235606043 No Longer Active Baltazar Childers MD Active ATORVASTATIN CALCIUM 20 MG ORAL TABS Take 1 tab daily ATORVASTATIN CALCIUM 89446722816 Active KENDALL Juarez Active FUROSEMIDE 40 MG TABS Take one by mouth daily FUROSEMIDE 91633792248 Active Baltazar Childers MD Active LISINOPRIL 20 MG TABS Take one by mouth daily at bedtime LISINOPRIL 50926774262 Active Baltazar Childers MD Active ONETOUCH ULTRA BLUE STRP Test twice a day GLUCO SE BLOOD 78134410518 No Longer Active Baltazar Childers MD Active TRUEPLUS LANCETS 33G MISC Test twice a day LANCET S 29746862913 Active KENDALL Juarez Active TRUEDRAW LANCING DEVICE MISC Test twice a day L ANCET DEVICES 61091330263 Active Baltazar Childers MD Active TRUETRACK TEST STRP Test twice a day GLUCOSE BLOO D 49958317292 Active KENDALL Juarez Active TRUETRACK BLOOD GLUCOSE W/DEVICE KIT Test twice a day BLOOD GLUCOSE MONITORING SUPPL 46813816166 Active Baltazar Childers MD Activ e HYDROCODONE-ACETAMINOPHEN 7.5-325 MG TABS Take 1 tab every 6-8 hour s PRN HYDROCODONE-ACETAMINOPHEN 83521292998 Active Baltazar Childers MD Active NORTRIPTYLINE HCL 50 MG CAPS 1 every night for neuropathy 4 NORTRIPTYLINE HCL 11046776221 Active Baltazar Childers MD Acti ve GABAPENTIN 300 MG CAPS 1 three times a day GABAPE NTIN 01242217556 Active Baltazar Childers MD Active GABAPENTIN 300 MG CAPS 1 po qd x 2 days, then 1 po BID x 2 d ays, then 1 po TID GABAPENTIN 13671951716 No Longer Active Baltazar silverman MD Active TRAMADOL HCL 50 MG TABS 1 twice a day as needed for pain TRAMADOL HCL 79138211462 Active Baltazar Childers MD Active NAPROXEN 500 MG TABS 1 tablet by mouth twice daily NAPROXEN 55846972822 No Longer Active Baltazar Childers MD Active PROAIR HFA 108 (90 BASE) MCG/ACT AERS 2 puffs four times a d ay as needed ALBUTEROL SULFATE 46480997496 Active KENDALL Juarez Active DEPO-TESTOSTERONE 200 MG/ML OIL as directed RUFINO TOSTERONE CYPIONATE 67157974270 No Longer Active Baltazar Childers MD Active LIPITOR 20 MG TABS Take one by mouth daily in evening ATORVASTATIN CALCIUM 05939232353 No Longer Active Baltazar Childers MD Activ e CRESTOR 10 MG TABS 1 by mouth every day R OSUVASTATIN CALCIUM 70883927581 No Longer Active Baltazar Childers MD Activ e PHENTERMINE HCL 37.5 MG TABS Take one by mouth daily 2 PHENTERMINE HCL 78174333855 No Longer Active Baltazar Childers MD Activ e ROBAXIN-750 750 MG TABS Take one by mouth daily ME THOCARBAMOL 94658086335 Active Baltazar Childers MD Active TIZANIDINE HCL 4 MG TABS 1 daily as needed for muscle spasm 2011 TIZANIDINE HCL 23501816502 No Longer Active Dawna Salazar RN Active [id number]-[id number] 50-325-40 MG TABS 1 four time s a day as needed for heacache OWONVEGIOU-QTUR-IPTRBTDO 66993947422 Active Baltazar Childers MD Active SUMATRIPTAN SUCCINATE 100 MG TABS 1 tablet by mouth at onset of migraine as needed SUMATRIPTAN SUCCINATE 09100593648 Active KENDALL Juarez Active LORATADINE 10 MG TABS Take one by mouth daily LORATADINE 08060014625 Active Baltazar Childers MD Active OMEPRAZOLE 20 MG CPDR Take one by mouth daily OMEPRAZOLE 61829538198 Active [place] Fitzgeralder Active HYDROXYZINE HCL 25 MG TABS Take one by mouth daily HYDROXYZINE HCL 38681056869 Active Baltazar Childers MD Active GLIPIZIDE 10 MG TABS 1 tablet by mouth twice daily GLIPIZIDE 09913223718 Active Baltazar Childers MD Active ALPRAZOLAM 1 MG TABS 1 tablet by mouth daily at bedtime for restles s leg ALPRAZOLAM 58474378784 Active Baltazar Childers MD Active METFORMIN HCL 1000 MG TABS Take one by mouth twice daily METFORMIN HCL 42564997368 Active Baltazar Childers MD Active TIZANIDINE HCL 4 MG TABS 1 daily as needed for muscle spasm 2011 TIZANIDINE HCL 4 MG TABS 792808 TIZANIDINE HCL Inactiv e PHENTERMINE HCL 37.5 MG TABS Take one by mouth daily 2 PHENTERMINE HCL 37.5 MG TABS 982939 PHENTERMINE HCL Inactive CRESTOR 10 MG TABS 1 by mouth every day C RESTOR 10 MG TABS 924509 ROSUVASTATIN CALCIUM Inactive LIPITOR 20 MG TABS Take one by mouth daily in evening LIPITOR 20 MG TABS 532156 ATORVASTATIN CALCIUM Inactive DEPO-TESTOSTERONE 200 MG/ML OIL as directed 8 DEPO-TESTOSTERONE 200 MG/ML OIL 525858 TESTOSTERONE CYPIONATE Inactive NAPROXEN 500 MG TABS 1 tablet by mouth twice daily 201 07/27/22 NAPROXEN 500 MG TABS 017951 NAPROXEN Inactive GABAPENTIN 300 MG CAPS 1 po qd x 2 days, then 1 po BID x 2 d ays, then 1 po TID GABAPENTIN 300 MG CAPS 208270 GABAPENTIN Inact amie ONETOUCH ULTRA BLUE STRP Test twice a day ONETOUCH ULTRA BLUE STRP GLUCOSE BLOOD Inactive NAPROXEN SODIUM 220 MG ORAL TABS 1 three times a day as needed 2 NAPROXEN SODIUM 220 MG ORAL TABS 208541 NAPROXEN SODIUM Inactive TOUJEO SOLOSTAR 300 UNIT/ML [...] Fluarix, Agriflu(>= 18 yo)) Fluzone (>3 yrs.) [[id number]] Influenza, seasonal, inject able Seasonal influenza vaccine, injectable, containing preservative, for > 3 years old (Afluria, FluLaval, Fluzone, Fluvirin, Fluarix, Agriflu(>= 18 yo)) Fluzone (>3 yrs.) [[id number]] Influenza, seasonal, inject able Vital Signs Date [...] C - Chemistry sodium, serum 139 mmol/L 238-306 1827/07/07 potassium, serum 4.5 mmol/L 3.5-5.2 chloride, serum [...] 7.9 % 4.3-6.0 sodium, serum 139 mmol/L 558-204 7825/02/04 potassium, serum 5.4 mmol/L 3.5-5.2 chloride, serum [...] Panel - Chemistry sodium, serum 138 mmol/L 917-628 1119/11/23 carbon dioxide, venous blood 32.4 mmol/L 21.0-32 .0 potassium, serum 5.7 mmol/L 3.5-5.2 chloride, serum 98 mmol/L 98-107 blood glucose 136 mg/dL 65-110 urea nitrogen, blood 18 mg/dL 7-18 creatinine, serum 1.71 mg/dL 0.55-1.30 alanine aminotransferase (SGPT), serum 71 U/L 12-78 aspartate aminotransferase (SGOT), serum 34 U/L 15-37 calcium, serum 9.4 mg/dL 8.5-10.1 bilirubin, serum, total 0.40 mg/dL 0.00-1.00 cholesterol, serum 405 mg/dL 087-768 4960/11/23 triglyceride, serum, fasting 709 mg/dL 30-200 HDL [...] Panel - Chemistry sodium, serum 141 mmol/L 957-084 0733/08/08 potassium, serum 4.9 mmol/L 3.5-5.2 chloride, serum [...] mg/dL Encounters Code Encounter Date Provider Facility CPT-54350 Level 3 Est. Patient 16:40:40 CDT Baltazar Childers MD [facility] CPT-52223 Level 4 Est. Patient 10:41:24 CDT Baltazar Childers MD [facility] CPT-61494 Level 4 Est. Patient 16:01:48 CDT Baltazar Childers MD [facility] CPT-19545 Level 4 Est. 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 Patient 15:42:12 CDT Baltazar Childers MD [facility] CPT-01976 Level 4 Est. Patient 11:29:55 CDT Baltazar Childers MD [facility] CPT-40824 Level 4 Est. Patient 14:15:19 CDT Baltazar Childers MD [facility] CPT-12346 Level 4 Est. Patient 12:20:13 CDT Baltazar Childers MD [facility] CPT-77240 Level 4 Est. 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 Patient 15:18:29 CDT Baltazar Childers MD [facility] CPT-36812 Level 3 Est. Patient 12:45:34 CDT Baltazar Childers MD [facility] CPT-69926 Level 3 Est. Patient 10:10:11 CDT Baltazar Childers MD [facility] CPT-56929 Level 3 Est. Patient 14:07:50 CDT Baltazar Childers MD [facility] CPT-93264 Level 4 Est. Patient 12:26:10 SUPERVISOR ORE [employer]ESSING Baltazar Childers MD [facility] CPT-71945 Level 4 Est. Patient 14:45:38 CDT Baltazar Childers MD [facility] CPT-06408 Level 4 New Patient 12:30:48 CDT Baltazar hinton MD [facility] Procedures Code Procedure Name Date Entry Date Standard Desc ription CPT-44540 Renal Panel - LAB USE ONLY 17:39:20 CDT 201 10/31/07 CPT-21490 CBC - LAB USE ONLY 17:39:20 CDT CPT-03425 Venipuncture Draw Fee 17:39:20 CDT CPT-26674 Venipuncture Draw Fee 14:33:30 CDT CPT-21890 Renal Panel - LAB USE ONLY 14:33:30 CDT 201 10/31/07 CPT-87924 CBC - LAB USE ONLY 14:33:29 CDT CPT-22555 Venipuncture Draw Fee 14:50:21 SUPERVISOR [employer] CPT-00590 Immunization Single Admin 17:35:35 CDT 2014 CPT-26532 Fluzone Quadrivalent preservative free ( >=3yrs.) 17:35:35 CDT CPT-44701 Venipuncture Draw Fee 12:10:27 SUPERVISOR [employer]ESSING CPT-57390 Fluzone Quadrivalent Intramuscular Suspe nsion 0.5 ML 10:49:13 CDT CPT-23818 First Vx Component - Ix admi n via ID IM or jet inj without physician counseling 15:17:19 SUPERVISOR [employer] CPT-42146 Pneumovax 23 15:17:19 SUPERVISOR [employer] CPT-41022 Pneumovax 14:52:45 SUPERVISOR [employer]ESSING CPT-20468 Venipuncture Draw Fee 14:06:30 SUPERVISOR [employer]ESSING CPT-000 Give Appropriate Flu Vaccine 14:18:34 SUPERVISOR [employer]RE [employer]ESSING 2 CPT-37761 Administration single or combination vac cine inc oral 14:46:00 SUPERVISOR [employer]RE [employer] CPT-57174 Influenza split virus > age 3 14:46:00 SUPERVISOR [employer]RE [employer]ESSING CPT-OV Office Visit 19:13:16 CDT CPT-90376 Zostavax 18:41:56 CDT CPT-98381 Administration single or combination vac cine inc oral 12:56:39 CDT CPT-91683 Zoster Vaccine (Zostavax) 12:56:39 CDT 2012 CPT-41387 Venipuncture Draw Fee 10:58:57 CDT CPT-86258 Sono pelvis non OB uterus ovaries cervix 17:45:04 CDT CPT-10103 Sono retroperitoneal complete kidneys an d bladder 17:14:36 CDT CPT-OV Office Visit 14:59:38 SUPERVISOR [employer] CPT-J1070 Depo Testosterone 100 mg 14:50:13 CDT 03/05 CPT-74362 Abx/Therapy Injection 14:50:13 CDT CPT-83336 Administration single or combination vac cine inc oral 14:34:43 CDT CPT-47897 Influenza split virus > age 3 14:34:43 CDT CPT-J1070 Depo Testosterone 100 mg 17:37:13 CDT 01/11 CPT-62549 Abx/Therapy Injection 17:37:13 CDT CPT-80864 Venipuncture Draw Fee 16:30:13 CDT CPT-30870 Venipuncture Draw Fee 16:29:43 CDT CPT-J1070 Depo Testosterone 100 mg 14:45:38 CDT 01/11
--- OUTSIDE RECORDS SUMMARY | 2019-10-27 12:35 | XMS REPORT | Clinical Summary ---
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 Benign neoplasm of colon PERIPHERAL NEUROPATHY 356.9 [...] MISC use 1 daily INSULIN PEN NEEDLE 60545955538 Active Martita Herbert RMA Active TOUJEO SOLOSTAR 300 UNIT/ML SC SOPN 10 units SC daily INSULIN GLARGINE 19727955648 No Longer Active Martita Herbert RMA Active LANTUS SOLOSTAR 100 UNIT/ML SC SOPN 10 units SC daily INSULIN GLARGINE 93968289623 Active KENDALL Juarez Active NAPROXEN SODIUM 220 MG ORAL TABS 1 three times a day as needed 2 NAPROXEN SODIUM 95366309953 No Longer Active Baltazar Childers MD Active ATORVASTATIN CALCIUM 20 MG ORAL TABS Take 1 tab daily ATORVASTATIN CALCIUM 03285229985 Active KENDALL Juarez Active FUROSEMIDE 40 MG TABS Take one by mouth daily FUROSEMIDE 89805380126 Active Baltazar Childers MD Active LISINOPRIL 20 MG TABS Take one by mouth daily at bedtime LISINOPRIL 45845686556 Active Baltazar Childers MD Active ONETOUCH ULTRA BLUE STRP Test twice a day GLUCO SE BLOOD 93989533026 No Longer Active Baltazar Childers MD Active TRUEPLUS LANCETS 33G MISC Test twice a day LANCET S 15093999031 Active KENDALL Juarez Active TRUEDRAW LANCING DEVICE MISC Test twice a day L ANCET DEVICES 98829308948 Active Baltazar Childers MD Active TRUETRACK TEST STRP Test twice a day GLUCOSE BLOO D 04234609819 Active KENDALL Juarez Active TRUETRACK BLOOD GLUCOSE W/DEVICE KIT Test twice a day BLOOD GLUCOSE MONITORING SUPPL 89380196738 Active Baltazar Childers MD Activ e HYDROCODONE-ACETAMINOPHEN 7.5-325 MG TABS Take 1 tab every 6-8 hour s PRN HYDROCODONE-ACETAMINOPHEN 64762116921 Active Baltazar Childers MD Active NORTRIPTYLINE HCL 50 MG CAPS 1 every night for neuropathy 4 NORTRIPTYLINE HCL 70686361361 Active Baltazar Childers MD Acti ve GABAPENTIN 300 MG CAPS 1 three times a day GABAPE NTIN 76100628008 Active Blatazar Childers MD Active GABAPENTIN 300 MG CAPS 1 po qd x 2 days, then 1 po BID x 2 d ays, then 1 po TID GABAPENTIN 04244899711 No Longer Active Baltazar silverman MD Active TRAMADOL HCL 50 MG TABS 1 twice a day as needed for pain TRAMADOL HCL 17942000187 Active Baltazar Childers MD Active NAPROXEN 500 MG TABS 1 tablet by mouth twice daily NAPROXEN 14938779728 No Longer Active Baltazar Childers MD Active PROAIR HFA 108 (90 BASE) MCG/ACT AERS 2 puffs four times a d ay as needed ALBUTEROL SULFATE 74307868909 Active KENDALL Juarez Active DEPO-TESTOSTERONE 200 MG/ML OIL as directed RUFINO TOSTERONE CYPIONATE 52437548118 No Longer Active Baltazar Childers MD Active LIPITOR 20 MG TABS Take one by mouth daily in evening ATORVASTATIN CALCIUM 44964604368 No Longer Active Baltazar Childers MD Activ e CRESTOR 10 MG TABS 1 by mouth every day R OSUVASTATIN CALCIUM 09694530480 No Longer Active Baltazar Childers MD Activ e PHENTERMINE HCL 37.5 MG TABS Take one by mouth daily 2 PHENTERMINE HCL 20656171585 No Longer Active Baltazar Childers MD Activ e ROBAXIN-750 750 MG TABS Take one by mouth daily ME THOCARBAMOL 99705194146 Active Baltazar Childers MD Active TIZANIDINE HCL 4 MG TABS 1 daily as needed for muscle spasm 2011 TIZANIDINE HCL 66236244735 No Longer Active Dawna Salazar RN Active XHEMVYOCIG-[id number]-GGKDZTDS 50-325-40 MG TABS 1 four time s a day as needed for heacache KQUJESZUPH-USXO-ZUMITHRM 86520316990 Active Baltazar Childers MD Active SUMATRIPTAN SUCCINATE 100 MG TABS 1 tablet by mouth at onset of migraine as needed SUMATRIPTAN SUCCINATE 21439896711 Active KENDALL Juarez Active LORATADINE 10 MG TABS Take one by mouth daily LORATADINE 72409784052 Active Baltazar Childers MD Active OMEPRAZOLE 20 MG CPDR Take one by mouth daily OMEPRAZOLE 59647873436 Active [place] Fitzgeralder Active HYDROXYZINE HCL 25 MG TABS Take one by mouth daily HYDROXYZINE HCL 25380796528 Active Baltazar Childers MD Active GLIPIZIDE 10 MG TABS 1 tablet by mouth twice daily GLIPIZIDE 99125420397 Active Baltazar Childers MD Active ALPRAZOLAM 1 MG TABS 1 tablet by mouth daily at bedtime for restles s leg ALPRAZOLAM 79450599871 Active Baltazar Childers MD Active METFORMIN HCL 1000 MG TABS Take one by mouth twice daily METFORMIN HCL 40853294369 Active Baltazar Childers MD Active TIZANIDINE HCL 4 MG TABS 1 daily as needed for muscle spasm 2011 TIZANIDINE HCL 4 MG TABS 183047 TIZANIDINE HCL Inactiv e PHENTERMINE HCL 37.5 MG TABS Take one by mouth daily 2 PHENTERMINE HCL 37.5 MG TABS 676574 PHENTERMINE HCL Inactive CRESTOR 10 MG TABS 1 by mouth every day C RESTOR 10 MG TABS 406472 ROSUVASTATIN CALCIUM Inactive LIPITOR 20 MG TABS Take one by mouth daily in evening LIPITOR 20 MG TABS 419382 ATORVASTATIN CALCIUM Inactive DEPO-TESTOSTERONE 200 MG/ML OIL as directed 8 DEPO-TESTOSTERONE 200 MG/ML OIL 007058 TESTOSTERONE CYPIONATE Inactive NAPROXEN 500 MG TABS 1 tablet by mouth twice daily 201 07/27/22 NAPROXEN 500 MG TABS 335557 NAPROXEN Inactive GABAPENTIN 300 MG CAPS 1 po qd x 2 days, then 1 po BID x 2 d ays, then 1 po TID GABAPENTIN 300 MG CAPS 135514 GABAPENTIN Inact amie ONETOUCH ULTRA BLUE STRP Test twice a day ONETOUCH ULTRA BLUE STRP GLUCOSE BLOOD Inactive NAPROXEN SODIUM 220 MG ORAL TABS 1 three times a day as needed 2 NAPROXEN SODIUM 220 MG ORAL TABS 328728 NAPROXEN SODIUM Inactive TOUJEO SOLOSTAR 300 UNIT/ML [...] Fluarix, Agriflu(>= 18 yo)) Fluzone (>3 yrs.) [[id number]] Influenza, seasonal, inject able Seasonal influenza vaccine, injectable, containing preservative, for > 3 years old (Afluria, FluLaval, Fluzone, Fluvirin, Fluarix, Agriflu(>= 18 yo)) Fluzone (>3 yrs.) [[id number]] Influenza, seasonal, inject able Vital Signs Date [...] C - Chemistry sodium, serum 139 mmol/L 115-631 6442/07/07 potassium, serum 4.5 mmol/L 3.5-5.2 chloride, serum [...] 7.9 % 4.3-6.0 sodium, serum 139 mmol/L 499-668 7118/02/04 potassium, serum 5.4 mmol/L 3.5-5.2 chloride, serum [...] Panel - Chemistry sodium, serum 138 mmol/L 488-505 3378/11/23 carbon dioxide, venous blood 32.4 mmol/L 21.0-32 .0 potassium, serum 5.7 mmol/L 3.5-5.2 chloride, serum 98 mmol/L 98-107 blood glucose 136 mg/dL 65-110 urea nitrogen, blood 18 mg/dL 7-18 creatinine, serum 1.71 mg/dL 0.55-1.30 alanine aminotransferase (SGPT), serum 71 U/L 12-78 aspartate aminotransferase (SGOT), serum 34 U/L 15-37 calcium, serum 9.4 mg/dL 8.5-10.1 bilirubin, serum, total 0.40 mg/dL 0.00-1.00 cholesterol, serum 405 mg/dL 860-407 1952/11/23 triglyceride, serum, fasting 709 mg/dL 30-200 HDL [...] Panel - Chemistry sodium, serum 141 mmol/L 044-987 8739/08/08 potassium, serum 4.9 mmol/L 3.5-5.2 chloride, serum [...] mg/dL Encounters Code Encounter Date Provider Facility CPT-22754 Level 3 Est. Patient 16:40:40 CDT Baltazar Childers MD [facility] CPT-74032 Level 4 Est. Patient 10:41:24 CDT Baltazar Childers MD [facility]-69051 Level 4 Est. Patient 16:01:48 CDT Baltazar Childers MD [facility]-74963 Level 4 Est. 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-25362 Level 4 Est. Patient 15:42:12 CDT Baltazar Childers MD [facility] CPT-27168 Level 4 Est. Patient 11:29:55 CDT Baltazar Childers MD [facility]-92823 Level 4 Est. Patient 14:15:19 CDT Baltazar Childers MD [facility] CPT-30387 Level 4 Est. Patient 12:20:13 CDT Baltazar Childers MD [facility]-19275 Level 4 Est. Patient 14:52:45 CLERK TELEGRAPH SERVICE Baltazar Childers MD [facility] CPT-87587 Level 4 Est. Patient 14:18:34 CLERK TELEGRAPH SERVICE Baltazar Childers MD [facility]-22535 Level 4 Est. Patient 15:18:29 CDT Baltazar Childers MD [facility] CPT-00166 Level 3 Est. Patient 12:45:34 CDT Baltazar Childers MD [facility] CPT-76707 Level 3 Est. Patient 10:10:11 CDT Baltazar Childers MD [facility]-57983 Level 3 Est. Patient 14:07:50 CDT Baltazar Childers MD [facility]-77343 Level 4 Est. Patient 12:26:10 CLERK TELEGRAPH SERVICE Baltazar Childers MD [facility]-26478 Level 4 Est. Patient 14:45:38 CDT Baltazar Childers MD [facility] CPT-42866 Level 4 New Patient 12:30:48 CDT Baltazar hinton MD [facility] Procedures Code Procedure Name Date Entry Date Standard Desc ription CPT-00592 Renal Panel - LAB USE ONLY 17:39:20 CDT 201 10/31/07 CPT-04481 CBC - LAB USE ONLY 17:39:20 CDT CPT-00127 Venipuncture Draw Fee 17:39:20 CDT CPT-41297 Venipuncture Draw Fee 14:33:30 CDT CPT-45125 Renal Panel - LAB USE ONLY 14:33:30 CDT 201 10/31/07 CPT-32224 CBC - LAB USE ONLY 14:33:29 CDT CPT-09745 Venipuncture Draw Fee 14:50:21 CLERK TELEGRAPH SERVICE CPT-87144 Immunization Single Admin 17:35:35 CDT 2014 CPT-02705 Fluzone Quadrivalent preservative free ( >=3yrs.) 17:35:35 CDT CPT-63116 Venipuncture Draw Fee 12:10:27 CLERK TELEGRAPH SERVICE CPT-88340 Fluzone Quadrivalent Intramuscular Suspe nsion 0.5 ML 10:49:13 CDT CPT-01415 First Vx Component - Ix admi n via ID IM or jet inj without physician counseling 15:17:19 CLERK TELEGRAPH SERVICE CPT-13022 Pneumovax 23 15:17:19 CLERK TELEGRAPH SERVICE CPT-62841 Pneumovax 14:52:45 CLERK TELEGRAPH SERVICE CPT-93664 Venipuncture Draw Fee 14:06:30 CLERK TELEGRAPH SERVICE CPT-000 Give Appropriate Flu Vaccine 14:18:34 CLERK TELEGRAPH SERVICE 2 013/11/04 CPT-57632 Administration single or combination vac cine inc oral 14:46:00 CLERK TELEGRAPH SERVICE CPT-55999 Influenza split virus > age 3 14:46:00 CLERK TELEGRAPH SERVICE CPT-OV Office Visit 19:13:16 CDT CPT-37860 Zostavax 18:41:56 CDT CPT-50451 Administration single or combination vac cine inc oral 12:56:39 CDT CPT-23790 Zoster Vaccine (Zostavax) 12:56:39 CDT 2012 CPT-56606 Venipuncture Draw Fee 10:58:57 CDT CPT-21908 Sono pelvis non OB uterus ovaries cervix 17:45:04 CDT CPT-71066 Sono retroperitoneal complete kidneys an d bladder 17:14:36 CDT CPT-OV Office Visit 14:59:38 CLERK TELEGRAPH SERVICE CPT-J1070 Depo Testosterone 100 mg 14:50:13 CDT 03/05 CPT-50814 Abx/Therapy Injection 14:50:13 CDT CPT-32343 Administration single or combination vac cine inc oral 14:34:43 CDT CPT-18380 Influenza split virus > age 3 14:34:43 CDT CPT-J1070 Depo Testosterone 100 mg 17:37:13 CDT 01/11 CPT-05803 Abx/Therapy Injection 17:37:13 CDT CPT-77814 Venipuncture Draw Fee 16:30:13 CDT CPT-20189 Venipuncture Draw Fee 16:29:43 CDT CPT-J1070 Depo Testosterone 100 mg 14:45:38 CDT 01/11
--- OUTSIDE RECORDS SUMMARY | 2019-10-27 12:35 | XMS REPORT | Clinical Summary ---
Author Author Abhishek, Elba Lance Michelle [facility] 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 [employer] Benign neoplasm of colon PERIPHERAL NEUROPATHY 356.9 Active Baltazar Nickerson MD Unspecified hereditary and idiopathic peripheral neuropathy PERSONAL HISTORY OF COLONIC POLYPS V12.72 Active 2 Lolis Thomas [employer] Personal history of colonic polyps PARESTHESIA, HANDS [...] Generic Name NDC Status Provider Patient Instruction NORTRIPTYLINE HCL 50 MG ORAL CAPSULE 1 twice a day for neuropathy 2 NORTRIPTYLINE HCL 19604854376 Active Baltazar Childers MD Acti ve ASPIRIN 81 MG TBEC Take one (1) tablet by mouth daily ASPIRIN 98562730249 Active Baltazar Childers MD Active GABAPENTIN 300 MG ORAL CAPSULE 1 three times a day 201 12/03/26 GABAPENTIN 55182441592 No Longer Active Baltazar Childers MD Activ e LISINOPRIL 20 MG ORAL TABLET 1 tablet by mouth daily at night 2016 LISINOPRIL 11589079744 Active Baltazar Childers MD Active ZITHROMAX Z-ISAIAS 250 MG ORAL TABLET Take two tablets to day and then 1 tablet daily for 4 days AZITHROMYCIN 37713745436 No Longer A ctive Baltazar Childers MD Active LANTUS SOLOSTAR 100 UNIT/ML SUBCUTANEOUS SOLUTION PEN- INJECTOR 30 units SC daily INSULIN GLARGINE 17893456861 Active Baltazar Childers MD Active AMLODIPINE BESYLATE 5 MG ORAL TABLET 1 tab daily for HTN AMLODIPINE BESYLATE 48288100143 Active Baltazar Childers MD Active SYNTHROID 100 MCG ORAL TABLET 1 tablet by mouth daily LEVOTHYROXINE SODIUM 98914974440 Active Baltazar Childers MD Active GLIPIZIDE 10 MG ORAL TABLET take 2 tablets twice daily GLIPIZIDE 48165049221 Active Baltazar Childers MD Active SUCRALFATE 1 GM ORAL TABLET 1 four times a day to coat the stoma ch SUCRALFATE 71467834738 No Longer Active Baltazar Childers MD Active PEN NEEDLES 31G X 6 MM use 1 daily INSULIN PEN NE EDLE 59910802730 Active KENDALL Juarez Active TOUJEO SOLOSTAR 300 UNIT/ML SUBCUTANEOUS SOLUTION PEN- INJECTOR 10 units SC daily INSULIN GLARGINE 36308468002 No Longer Active Rola hayes Herbert RMA Active NAPROXEN SODIUM 220 MG ORAL TABLET 1 three times a day as needed NAPROXEN SODIUM 41005969106 No Longer Active Baltazar Childers MD Active ATORVASTATIN CALCIUM 20 MG ORAL TABLET Take 1 tab daily ATORVASTATIN CALCIUM 17820176661 Active Baltazar Childers MD A ctive FUROSEMIDE 40 MG ORAL TABLET Take one by mouth daily FUROSEMIDE 67147807932 Active Baltazar Childers MD Active LISINOPRIL 20 MG ORAL TABLET Take one by mouth daily at bedtime LISINOPRIL 84840487309 No Longer Active Baltazar Childers MD Active ONETOUCH ULTRA BLUE IN VITRO STRIP Test twice a day 07/11/11 GLUCOSE BLOOD 50189595135 No Longer Active Baltazar Childers MD Acti ve TRUEPLUS LANCETS 33G Test twice a day LANCETS 1892846 9230 Active KENDALL Juarez Active TRUEDRAW LANCING DEVICE Test twice a day LANCET DEVICES 91406403604 Active Baltazar Childers MD Active TRUETRACK TEST IN VITRO STRIP Test twice a day GLUCOSE BLOOD 06576610578 Active Baltazar Childers MD Active TRUETRACK BLOOD GLUCOSE w/Device KIT Test twice a day BLOOD GLUCOSE MONITORING SUPPL 17357227661 Active Baltazar Childers MD Activ e HYDROCODONE-ACETAMINOPHEN 7.5-325 MG ORAL TABLET Take 1 tab every 6-8 hours PRN HYDROCODONE-ACETAMINOPHEN 94577019448 Active Baltazar Nickerson MD Active GABAPENTIN 300 MG ORAL CAPSULE 1 po qd x 2 days, then 1 po BID x 2 days, then 1 po TID GABAPENTIN 20647953906 No Longer Active Baltazar Childers MD Active TRAMADOL HCL 50 MG ORAL TABLET 1 twice a day as needed for pain 201 07/27/28 TRAMADOL HCL 05699321728 Active Baltazar Childers MD Active NAPROXEN 500 MG ORAL TABLET 1 tablet by mouth twice daily NAPROXEN 48761269465 No Longer Active Baltazar Childers MD Active PROAIR HFA 108 (90 Base) MCG/ACT INHALATION AEROSOL SO LUTION 2 puffs four times a day as needed ALBUTEROL SULFATE 27497980607 Active R gilberto Childers MD Active DEPO-TESTOSTERONE 200 MG/ML INTRAMUSCULAR SOLUTION as directed TESTOSTERONE CYPIONATE 54510177286 No Longer Active Baltazar Childers MD Active LIPITOR 20 MG ORAL TABLET Take one by mouth daily in evening ATORVASTATIN CALCIUM 61218699797 No Longer Active Baltazar Childers MD Active CRESTOR 10 MG ORAL TABLET 1 by mouth every day ROSUVASTATIN CALCIUM 04320283705 No Longer Active Baltazar Childers MD Active PHENTERMINE HCL 37.5 MG ORAL TABLET Take one by mouth daily PHENTERMINE HCL 56104463520 No Longer Active Baltazar Childers MD Ac tive ROBAXIN-750 750 MG ORAL TABLET Take one by mouth daily METHOCARBAMOL 35035476722 Active KENDALL Juarez Active TIZANIDINE HCL 4 MG ORAL TABLET 1 daily as needed for muscle spa sm TIZANIDINE HCL 05181789624 No Longer Active Dawna Salazar RN Active [id number] 50-325-40 MG ORAL TABLET 1 fo ur times a day as needed for heacache [id number] 72291893712 Active Baltazar Childers MD Active SUMATRIPTAN SUCCINATE 100 MG ORAL TABLET 1 tablet by m outh at onset of migraine as needed SUMATRIPTAN SUCCINATE 40375871173 Active KENDALL Restrepo Active LORATADINE 10 MG ORAL TABLET Take one by mouth daily LORATADINE 37494922703 Active KENDALL Juarez Active OMEPRAZOLE 20 MG ORAL CAPSULE DELAYED RELEASE Take one by mouth jostin ly OMEPRAZOLE 22662933495 Active Baltazar Childers MD Active HYDROXYZINE HCL 25 MG ORAL TABLET Take one by mouth daily HYDROXYZINE HCL 46236968617 Active Baltazar Childers MD Active ALPRAZOLAM 1 MG ORAL TABLET 1 tablet by mouth daily at bedti me for restless leg ALPRAZOLAM 77857523990 Active Baltazar Childers MD Active METFORMIN HCL 1000 MG ORAL TABLET Take one by mouth twice daily METFORMIN HCL 15459524419 Active Baltazar Childers MD Active TIZANIDINE HCL 4 MG ORAL TABLET 1 daily as needed for muscle spa sm TIZANIDINE HCL 4 MG ORAL TABLET 222758 TIZANIDINE HCL Inactive PHENTERMINE HCL 37.5 MG ORAL TABLET Take one by mouth daily PHENTERMINE HCL 37.5 MG ORAL TABLET 422166 PHENTERMINE HCL Inac tive CRESTOR 10 MG ORAL TABLET 1 by mouth every day CRESTOR 10 MG ORAL TABLET 556410 ROSUVASTATIN CALCIUM Inactive LIPITOR 20 MG ORAL TABLET Take one by mouth daily in evening LIPITOR 20 MG ORAL TABLET 864203 ATORVASTATIN CALCIUM Inactive DEPO-TESTOSTERONE 200 MG/ML INTRAMUSCULAR SOLUTION as directed DEPO-TESTOSTERONE 200 MG/ML INTRAMUSCULAR SOLUTION 117165 RUFINO TOSTERONE CYPIONATE Inactive NAPROXEN 500 MG ORAL TABLET 1 tablet by mouth twice daily NAPROXEN 500 MG ORAL TABLET 585453 NAPROXEN Inactive GABAPENTIN 300 MG ORAL CAPSULE 1 po qd x 2 days, then 1 po BID x 2 days, then 1 po TID GABAPENTIN 300 MG ORAL CAPSULE 726307 GABAP ENTIN Inactive ONETOUCH ULTRA BLUE IN VITRO STRIP Test twice a day 07/11/11 ONETOUCH ULTRA BLUE IN VITRO STRIP GLUCOSE BLOOD Inact amie NAPROXEN SODIUM 220 MG ORAL TABLET 1 three times a day as needed NAPROXEN SODIUM 220 MG ORAL TABLET 686132 NAPROXEN SODI UM Inactive TOUJEO SOLOSTAR 300 UNIT/ML SUBCUTANEOUS SOLUTION PEN- INJECTOR 10 units SC daily TOUJEO SOLOSTAR 300 UNIT/ML SUBCUTANEOUS SOLUTION PEN-INJECTOR INSULIN GLARGINE Inactive SUCRALFATE 1 GM ORAL TABLET 1 four times a day to coat the stoma ch SUCRALFATE 1 GM ORAL TABLET 921781 SUCRALFATE Inac tive GABAPENTIN 300 MG ORAL CAPSULE 1 three times a day 201 12/03/26 GABAPENTIN 300 MG ORAL CAPSULE 383852 GABAPENTIN Inactive ZITHROMAX Z-ISAIAS 250 MG ORAL TABLET Take two tablets to day and then 1 tablet daily for 4 days ZITHROMAX Z-ISAIAS 250 MG ORAL TAB LET 055476 AZITHROMYCIN Inactive Immunizations Vaccine Administration Date Value Standard Floyd cription pneumococcal immunization administered Pneumovax 23 [CVX33] pneumococcal polysaccharide vaccine, 23 valent Seasonal influenza vaccine, injectable, containing preservative, for > 3 years old (Afluria, FluLaval, Fluzone, Fluvirin, Fluarix, Agriflu(>= 18 yo)) Fluzone (>3 yrs.) [[id number]] Influenza, seasonal, inject able Seasonal influenza vaccine, injectable, containing preservative, for > 3 years old (Afluria, FluLaval, Fluzone, Fluvirin, Fluarix, Agriflu(>= 18 yo)) Fluzone (>3 yrs.) [[id number]] Influenza, seasonal, inject able Vital Signs Date [...] - Chem istry sodium, serum 139 mmol/L 945-959 8723/10/03 potassium, serum 4.7 mmol/L 3.5-5.2 chloride, serum 98 mmol/L 98-107 carbon dioxide, venous blood 28.7 mmol/L 21.0-32 .0 blood glucose 218 mg/dL 65-110 calcium, serum 9.8 mg/dL 8.5-10.1 urea nitrogen, blood 19 mg/dL 7-18 creatinine, serum 1.68 mg/dL 0.60-1.30 sodium, serum 139 mmol/L 562-679 6960/06/26 potassium, serum 4.8 mmol/L 3.5-5.2 chloride, serum 102 mmol/L 98-107 carbon dioxide, venous blood 29.1 mmol/L 21.0-32 .0 blood glucose 179 mg/dL 65-95 calcium, serum 9.7 mg/dL 8.5-10.1 urea nitrogen, blood 31 mg/dL 7-18 creatinine, serum 1.97 mg/dL 0.60-1.30 Lab Report: CBC, Renal Panel - Chemistry sodium, serum 142 mmol/L 940-403 6270/08/11 potassium, serum 4.8 mmol/L 3.5-5.2 chloride, serum [...] (L) - Chemistry cholesterol, serum 209 mg/dL 559-038 0575/12/27 triglyceride, serum, fasting 329 mg/dL 30-200 HDL cholesterol, serum 56 mg/dL 32-60 LDL cholesterol, serum 87 mg/dL 0-130 TSH 3.60 m[iU]/mL 0.36-3.74 Office Visit: Meds Check - Toxicology drug screen, urine, qualitative negative Encounters Code Encounter Date Provider Facility [facility]-[id number] Vst-Est Level V 14:26:27 CDT Aneudy Childers MD [facility]-18745 Level 4 Est. Patient 17:05:37 CDT Baltazar Childers MD [facility] CPT-18399 Level 4 Est. Patient 16:21:19 FILAMENT CUTTER Baltazar Childers MD [facility]-75365 Level 4 Est. Patient 12:25:11 CDT Baltazar Childers MD [facility] CPT-48149 Level 4 Est. Patient 14:22:31 CDT Baltazar Childers MD [facility]-73535 Level 4 Est. Patient 15:44:38 [facility] Est. Patient 11:34:17 CDT Baltazar Childers MD [facility] CPT-37413 Level 3 Est. Patient 16:40:40 CDT Baltazar Childers MD [facility] CPT-35695 Level 4 Est. Patient 10:41:24 CDT Baltazar Childers MD [facility] CPT-55536 Level 4 Est. Patient 16:01:48 CDT Baltazar Childers MD [facility] CPT-75524 Level 4 Est. Patient 16:54:07 FILAMENT CUTTER Baltazar Childers MD [facility]-27377 Level 4 Est. Patient 15:42:12 CDT Baltazar Childers MD [facility] CPT-31253 Level 4 Est. Patient 11:29:55 CDT Baltazar Childers MD [facility] CPT-69463 Level 4 Est. Patient 14:15:19 CDT Baltazar Childers MD [facility] CPT-89258 Level 4 Est. Patient 12:20:13 CDT Baltazar Childers MD [facility] CPT-34203 Level 4 Est. Patient 14:52:45 FILAMENT CUTTER Baltazar Childers MD [facility] CPT-51088 Level 4 Est. Patient 14:18:34 FILAMENT CUTTER Baltazar Childers MD [facility] CPT-09844 Level 4 Est. Patient 15:18:29 CDT Baltazar Childers MD [facility] CPT-23886 Level 3 Est. Patient 12:45:34 CDT Baltazar Childers MD [facility] CPT-30140 Level 3 Est. Patient 10:10:11 CDT Baltazar Childers MD [facility] CPT-87501 Level 3 Est. Patient 14:07:50 CDT Baltazar Childers MD [facility] CPT-32499 Level 4 Est. Patient 12:26:10 FILAMENT CUTTER Baltazar Childers MD [facility] CPT-13267 Level 4 Est. Patient 14:45:38 CDT Baltazar Childers MD [facility] CPT-34767 Level 4 New Patient 12:30:48 CDT Baltazar hinton MD [facility] Procedures Code Procedure Name Date Entry Date Standard Desc ription CPT-000 Give Appropriate Flu Vaccine 12:25:14 CDT 2 CPT-42813 First Vx - Ix admin via ID I M or jet injects without counseling by physician 13:08:59 CDT CPT-59842 Fluzone Quadrivalent Intramuscular Suspe nsion 0.5 ML 13:08:59 CDT CPT-55214 Venipuncture Draw Fee 12:04:12 CDT CPT-74412 Lipid - LAB USE ONLY 17:39:15 FILAMENT CUTTER 9 CPT-34098 HGBA1C - LAB USE ONLY 17:39:15 FILAMENT CUTTER CPT-34281 CMP - LAB USE ONLY 17:39:14 FILAMENT CUTTER CPT-62281 Venipuncture Draw Fee 17:39:14 FILAMENT CUTTER CPT-68774 First Vx - Ix admin via ID I M or jet injects without counseling by physician 16:55:17 FILAMENT CUTTER CPT-99248 Fluzone Quadrivalent Intramuscular Suspe nsion 0.5 ML 16:55:17 FILAMENT CUTTER CPT-45209 Renal Panel - LAB USE ONLY 17:39:20 CDT 201 10/31/07 CPT-44316 CBC - LAB USE ONLY 17:39:20 CDT CPT-27409 Venipuncture Draw Fee 17:39:20 CDT CPT-85960 Venipuncture Draw Fee 14:33:30 CDT CPT-28022 Renal Panel - LAB USE ONLY 14:33:30 CDT 201 10/31/07 CPT-46804 CBC - LAB USE ONLY 14:33:29 CDT CPT-34641 Venipuncture Draw Fee 14:50:21 FILAMENT CUTTER CPT-18431 Immunization Single Admin 17:35:35 CDT 2014 CPT-76740 Fluzone Quadrivalent preservative free ( >=3yrs.) 17:35:35 CDT CPT-38552 Venipuncture Draw Fee 12:10:27 FILAMENT CUTTER CPT-73936 Fluzone Quadrivalent Intramuscular Suspe nsion 0.5 ML 10:49:13 CDT CPT-44868 First Vx Component - Ix admi n via ID IM or jet inj without physician counseling 15:17:19 FILAMENT CUTTER CPT-08039 Pneumovax 23 15:17:19 FILAMENT CUTTER CPT-24538 Pneumovax 14:52:45 FILAMENT CUTTER CPT-76694 Venipuncture Draw Fee 14:06:30 FILAMENT CUTTER CPT-000 Give Appropriate Flu Vaccine 14:18:34 FILAMENT CUTTER 2 CPT-13908 Administration single or combination vac cine inc oral 14:46:00 FILAMENT CUTTER CPT-53117 Influenza split virus > age 3 14:46:00 FILAMENT CUTTER CPT-OV Office Visit 19:13:16 CDT CPT-97803 Zostavax 18:41:56 CDT CPT-93343 Administration single or combination vac cine inc oral 12:56:39 CDT CPT-61764 Zoster Vaccine (Zostavax) 12:56:39 CDT 2012 CPT-46890 Venipuncture Draw Fee 10:58:57 CDT CPT-98872 Sono pelvis non OB uterus ovaries cervix 17:45:04 CDT CPT-61881 Sono retroperitoneal complete kidneys an d bladder 17:14:36 CDT CPT-OV Office Visit 14:59:38 FILAMENT CUTTER CPT-J1070 Depo Testosterone 100 mg 14:50:13 CDT 03/05 CPT-34870 Abx/Therapy Injection 14:50:13 CDT CPT-97693 Administration single or combination vac cine inc oral 14:34:43 CDT CPT-85958 Influenza split virus > age 3 14:34:43 CDT CPT-J1070 Depo Testosterone 100 mg 17:37:13 CDT 01/11 CPT-46873 Abx/Therapy Injection 17:37:13 CDT CPT-88475 Venipuncture Draw Fee 16:30:13 CDT CPT-74007 Venipuncture Draw Fee 16:29:43 CDT CPT-J1070 Depo Testosterone 100 mg 14:45:38 CDT 01/11
--- OUTSIDE RECORDS SUMMARY | 2019-10-27 12:35 | XMS REPORT | Clinical Summary ---
Author Author Admin, Elba Lance Michelle [facility] Address Unknown Phone Unavailable 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 [employer] Benign neoplasm of colon PERIPHERAL NEUROPATHY 356.9 [...] ronary atherosclerosis of unspecified type of vessel, [place] or graft OTH NONSPC ABN FINDNG RAD&OTH [...] (moder ate) COLON POLYPS ICD-211.3 Inactive Lolis Thomas APR N Medication List Medication Instructions Start Date Stop Date Generic Name NDC Status Provider Patient Instruction NAPROXEN SODIUM 220 MG ORAL TABS 1 three times a day as needed 2 NAPROXEN SODIUM 87544286662 No Longer Active Baltazar Childers MD Active ATORVASTATIN CALCIUM 20 MG ORAL TABS Take 1 tab daily ATORVASTATIN CALCIUM 34735222406 Active KENDALL Juarez Active FUROSEMIDE 40 MG TABS Take one by mouth daily FUROSEMIDE 00223920267 Active Baltazar Childers MD Active LISINOPRIL 20 MG TABS Take one by mouth daily at bedtime LISINOPRIL 18309049950 Active KENDALL Juarez Active ONETOUCH ULTRA BLUE STRP Test twice a day GLUCO SE BLOOD 05623855984 No Longer Active Baltazar Childers MD Active TRUEPLUS LANCETS 33G MISC Test twice a day LANCET S 16578508155 Active KENDALL Juarez Active TRUEDRAW LANCING DEVICE MISC Test twice a day L ANCET DEVICES 56735330432 Active Baltazar Childers MD Active TRUETRACK TEST STRP Test twice a day GLUCOSE BLOO D 14912796678 Active KENDALL Juarez Active TRUETRACK BLOOD GLUCOSE W/DEVICE KIT Test twice a day BLOOD GLUCOSE MONITORING SUPPL 08838292570 Active Baltazar Childers MD Activ e HYDROCODONE-ACETAMINOPHEN 7.5-325 MG TABS Take 1 tab every 6-8 hour s PRN HYDROCODONE-ACETAMINOPHEN 86559471207 Active Baltazar Childers MD Active NORTRIPTYLINE HCL 50 MG CAPS 1 every night for neuropathy 4 NORTRIPTYLINE HCL 80511303075 Active Baltazar Childers MD Acti ve GABAPENTIN 300 MG CAPS 1 three times a day GABAPE NTIN 98348435476 Active KENDALL Juarez Active GABAPENTIN 300 MG CAPS 1 po qd x 2 days, then 1 po BID x 2 d ays, then 1 po TID GABAPENTIN 84258323133 No Longer Active Baltazar silverman MD Active TRAMADOL HCL 50 MG TABS 1 twice a day as needed for pain TRAMADOL HCL 92356473338 Active Baltazar Childers MD Active NAPROXEN 500 MG TABS 1 tablet by mouth twice daily NAPROXEN 99041753363 No Longer Active Baltazar Childers MD Active PROAIR HFA 108 (90 BASE) MCG/ACT AERS 2 puffs four times a d ay as needed ALBUTEROL SULFATE 12495625495 Active KENDALL Juarez Active DEPO-TESTOSTERONE 200 MG/ML OIL as directed RUFINO TOSTERONE CYPIONATE 98596318126 No Longer Active Baltazar Childers MD Active LIPITOR 20 MG TABS Take one by mouth daily in evening ATORVASTATIN CALCIUM 79759109301 No Longer Active Baltazar Childers MD Activ e CRESTOR 10 MG TABS 1 by mouth every day R OSUVASTATIN CALCIUM 39337825462 No Longer Active Baltazar Childers MD Activ e PHENTERMINE HCL 37.5 MG TABS Take one by mouth daily 2 PHENTERMINE HCL 23276536406 No Longer Active Baltazar Childers MD Activ e ROBAXIN-750 750 MG TABS Take one by mouth daily ME THOCARBAMOL 66753418657 Active Baltazar Childers MD Active TIZANIDINE HCL 4 MG TABS 1 daily as needed for muscle spasm 2011 TIZANIDINE HCL 15163578370 No Longer Active Dawna Salazar RN Active [id number]-JWNS-JSLIKWYU 50-325-40 MG TABS 1 four time s a day as needed for heacache [id number] 43812436795 Active KENDALL Juarez Active SUMATRIPTAN SUCCINATE 100 MG TABS 1 tablet by mouth at onset of migraine as needed SUMATRIPTAN SUCCINATE 04152592794 Active KENDALL Juarez Active LORATADINE 10 MG TABS Take one by mouth daily LORATADINE 61384277669 Active Baltazar Childers MD Active OMEPRAZOLE 20 MG CPDR Take one by mouth daily OMEPRAZOLE 56312228329 Active Baltazar Childers MD Active HYDROXYZINE HCL 25 MG TABS Take one by mouth daily HYDROXYZINE HCL 19573997453 Active Baltazar Childers MD Active GLIPIZIDE 10 MG TABS 1 tablet by mouth twice daily GLIPIZIDE 89275355629 Active KENDALL Juarez Active ALPRAZOLAM 1 MG TABS 1 tablet by mouth daily at bedtime for restles s leg ALPRAZOLAM 13381721801 Active Baltazar Childers MD Active METFORMIN HCL 1000 MG TABS Take one by mouth twice daily METFORMIN HCL 12173513773 Active Baltazar Childers MD Active TIZANIDINE HCL 4 MG TABS 1 daily as needed for muscle spasm 2011 TIZANIDINE HCL 4 MG TABS 857287 TIZANIDINE HCL Inactiv e PHENTERMINE HCL 37.5 MG TABS Take one by mouth daily 2 PHENTERMINE HCL 37.5 MG TABS 320885 PHENTERMINE HCL Inactive CRESTOR 10 MG TABS 1 by mouth every day C RESTOR 10 MG TABS ROSUVASTATIN CALCIUM Inactive LIPITOR 20 MG TABS Take one by mouth daily in evening LIPITOR 20 MG TABS 731022 ATORVASTATIN CALCIUM Inactive DEPO-TESTOSTERONE 200 MG/ML OIL as directed 8 DEPO-TESTOSTERONE 200 MG/ML OIL 749151 TESTOSTERONE CYPIONATE Inactive NAPROXEN 500 MG TABS 1 tablet by mouth twice daily 201 07/27/22 NAPROXEN 500 MG TABS 187950 NAPROXEN Inactive GABAPENTIN 300 MG CAPS 1 po qd x 2 days, then 1 po BID x 2 d ays, then 1 po TID GABAPENTIN 300 MG CAPS 813462 GABAPENTIN Inact amie ONETOUCH ULTRA BLUE STRP Test twice a day ONETOUCH ULTRA BLUE STRP GLUCOSE BLOOD Inactive NAPROXEN SODIUM 220 MG ORAL TABS 1 three times a day as needed 2 NAPROXEN SODIUM 220 MG ORAL TABS 070033 NAPROXEN SODIUM Inactive Immunizations Vaccine Administration Date Value Standard Floyd cription pneumococcal immunization administered Pneumovax 23 [CVX33] pneumococcal polysaccharide vaccine, 23 valent Seasonal influenza vaccine, injectable, containing preservative, for > 3 years old (Afluria, FluLaval, Fluzone, Fluvirin, Fluarix, Agriflu(>= 18 yo)) Fluzone (>3 yrs.) [[id number]] Influenza, seasonal, inject able Seasonal influenza vaccine, injectable, containing preservative, for > 3 years old (Afluria, FluLaval, Fluzone, Fluvirin, Fluarix, Agriflu(>= 18 yo)) Fluzone (>3 yrs.) [ERT816] Influenza, seasonal, inject able Vital Signs Date [...] 7.9 % 4.3-6.0 sodium, serum 139 mmol/L 680-455 9526/02/04 potassium, serum 5.4 mmol/L 3.5-5.2 chloride, serum [...] 0.40 mg/dL 0.00-1.00 cholesterol, serum 405 mg/dL 894-757 5788/11/23 triglyceride, serum, fasting 709 mg/dL 30-200 HDL [...] mg/dL Encounters Code Encounter Date Provider Facility CPT-56729 Level 4 Est. Patient 16:01:48 CDT Baltazar Childers MD [facility] CPT-60704 Level 4 Est. Patient 16:54:07 PERSONAL CARE ASSISTANT Baltazar Childers MD [facility] CPT-85360 Level 4 Est. Patient 15:42:12 CDT Baltazar Childers MD [facility] CPT-84789 Level 4 Est. Patient 11:29:55 CDT Baltazar Childers MD [facility] CPT-23792 Level 4 Est. Patient 14:15:19 CDT Baltazar Childers MD [facility] CPT-29523 Level 4 Est. Patient 12:20:13 CDT Baltazar Childers MD [facility] CPT-87685 Level 4 Est. Patient 14:52:45 PERSONAL CARE ASSISTANT Baltazar Childers MD [facility] CPT-65888 Level 4 Est. Patient 14:18:34 PERSONAL CARE ASSISTANT Baltazar Childers MD [facility] CPT-46815 Level 4 Est. Patient 15:18:29 CDT Baltazar Childers MD [facility] CPT-59621 Level 3 Est. Patient 12:45:34 CDT Baltazar Childers MD [facility] CPT-01475 Level 3 Est. Patient 10:10:11 CDT Baltazar Childers MD [facility] CPT-16679 Level 3 Est. Patient 14:07:50 CDT Baltazar Childers MD [facility] CPT-86352 Level 4 Est. Patient 12:26:10 PERSONAL CARE ASSISTANT Baltazar Childers MD [facility] CPT-12241 Level 4 Est. Patient 14:45:38 CDT Baltazar Childers MD [facility] CPT-46342 Level 4 New Patient 12:30:48 CDT Baltazar hinton MD [facility] Procedures Code Procedure Name Date Entry Date Standard Desc ription CPT-10194 Venipuncture Draw Fee 14:50:21 PERSONAL CARE ASSISTANT CPT-82885 Immunization Single Admin 17:35:35 CDT 2014 CPT-45953 Fluzone Quadrivalent preservative free ( >=3yrs.) 17:35:35 CDT CPT-12990 Venipuncture Draw Fee 12:10:27 PERSONAL CARE ASSISTANT CPT-99434 Fluzone Quadrivalent Intramuscular Suspe nsion 0.5 ML 10:49:13 CDT CPT-58992 First Vx Component - Ix admi n via ID IM or jet inj without physician counseling 15:17:19 PERSONAL CARE ASSISTANT CPT-61559 Pneumovax 15:17:19 PERSONAL CARE ASSISTANT CPT-33618 Pneumovax 14:52:45 PERSONAL CARE ASSISTANT CPT-27864 Venipuncture Draw Fee 14:06:30 PERSONAL CARE ASSISTANT CPT-000 Give Appropriate Flu Vaccine 14:18:34 PERSONAL CARE ASSISTANT 2 CPT-97093 Administration single or combination vac cine inc oral 14:46:00 PERSONAL CARE ASSISTANT CPT-39285 Influenza split virus > age 3 14:46:00 PERSONAL CARE ASSISTANT CPT-OV Office Visit 19:13:16 CDT CPT-50848 Zostavax 18:41:56 CDT CPT-11832 Administration single or combination vac cine inc oral 12:56:39 CDT CPT-63242 Zoster Vaccine (Zostavax) 12:56:39 CDT 2012 CPT-26434 Venipuncture Draw Fee 10:58:57 CDT CPT-15629 Sono pelvis non OB uterus ovaries cervix 17:45:04 CDT CPT-00676 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
--- OUTSIDE RECORDS SUMMARY | 2019-10-27 12:36 | XMS REPORT | Clinical Summary ---
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 [employer] Benign neoplasm of colon PERIPHERAL NEUROPATHY [...] ronary atherosclerosis of unspecified type of vessel, [place] or graft OTH NONSPC ABN FINDNG RAD&OTH [...] tablet by mouth daily LE VOTHYROXINE SODIUM 86135326582 Active Carina Tucker LPN Active GLIPIZIDE 10 MG TAB take 2 tablets twice daily GLIPIZIDE 78753228048 Active Carina Tucker LPN Active SUCRALFATE 1 GM TABS 1 four times a day to coat the stomach 2015 SUCRALFATE 46117379741 No Longer Active Baltazar Childers MD Active PEN NEEDLES 31G X 6 MM MISC use 1 daily INSULIN PEN NEEDLE 12225627806 Active Bella Suarez [employer] Active TOURINKUO SOLOSTAR 300 UNIT/ML SC SOPN 10 units SC daily INSULIN GLARGINE 20051426975 No Longer Active Martita Godinez KENDALL Active LANTUS SOLOSTAR 100 UNIT/ML SC SOPN 10 units SC daily INSULIN GLARGINE 69138655262 Active Baltazar Childers MD Active NAPROXEN SODIUM 220 MG ORAL TABS 1 three times a day as needed 2 NAPROXEN SODIUM 51001275246 No Longer Active Baltazar Childers MD Active ATORVASTATIN CALCIUM 20 MG ORAL TABS Take 1 tab daily ATORVASTATIN CALCIUM 27571315640 Active Baltazar Childers MD Active FUROSEMIDE 40 MG TABS Take one by mouth daily FUROSEMIDE 92505667264 Active Baltazar Childers MD Active LISINOPRIL 20 MG TABS Take one by mouth daily at bedtime LISINOPRIL 32364875481 Active KENDALL Juarez Active ONETOUCH ULTRA BLUE STRP Test twice a day GLUCO SE BLOOD 74222758792 No Longer Active Baltazar Childers MD Active TRUEPLUS LANCETS 33G MISC Test twice a day LANCET S 50646701995 Active KENDALL Juarez Active TRUEDRAW LANCING DEVICE MISC Test twice a day L ANCET DEVICES 80339464352 Active Baltazar Childers MD Active TRUETRACK TEST STRP Test twice a day GLUCOSE BLOO D 26844171259 Active KENDALL Juarez Active TRUETRACK BLOOD GLUCOSE W/DEVICE KIT Test twice a day BLOOD GLUCOSE MONITORING SUPPL 13527797343 Active Baltazar Childers MD Activ e HYDROCODONE-ACETAMINOPHEN 7.5-325 MG TABS Take 1 tab every 6-8 hour s PRN HYDROCODONE-ACETAMINOPHEN 62610103040 Active Shonna Parker APRN Active NORTRIPTYLINE HCL 50 MG CAPS 1 every night for neuropathy 4 NORTRIPTYLINE HCL 74214492100 Active Baltazar Childers MD Acti ve GABAPENTIN 300 MG CAPS 1 three times a day GABAPE NTIN 59742087176 Active KENDALL Juarez Active GABAPENTIN 300 MG CAPS 1 po qd x 2 days, then 1 po BID x 2 d ays, then 1 po TID GABAPENTIN 29005879661 No Longer Active Baltazar silverman MD Active TRAMADOL HCL 50 MG TABS 1 twice a day as needed for pain TRAMADOL HCL 72017825893 Active Shonna Parker APRN Active NAPROXEN 500 MG TABS 1 tablet by mouth twice daily NAPROXEN 00632201529 No Longer Active Baltazar Childers MD Active PROAIR HFA 108 (90 BASE) MCG/ACT AERS 2 puffs four times a d ay as needed ALBUTEROL SULFATE 63102208075 Active KENDALL Juarez Active DEPO-TESTOSTERONE 200 MG/ML OIL as directed RUFINO TOSTERONE CYPIONATE 21409336140 No Longer Active Baltazar Childers MD Active LIPITOR 20 MG TABS Take one by mouth daily in evening ATORVASTATIN CALCIUM 40420297896 No Longer Active Baltazar Childers MD Activ e CRESTOR 10 MG TABS 1 by mouth every day R OSUVASTATIN CALCIUM 73172218986 No Longer Active Baltazar Childers MD Activ e PHENTERMINE HCL 37.5 MG TABS Take one by mouth daily 2 PHENTERMINE HCL 84633665970 No Longer Active Baltazar Childers MD Activ e ROBAXIN-750 750 MG TABS Take one by mouth daily ME THOCARBAMOL 74747798802 Active Baltazar Childers MD Active TIZANIDINE HCL 4 MG TABS 1 daily as needed for muscle spasm 2011 TIZANIDINE HCL 74993685555 No Longer Active Dawna Salazar RN Active [id number] 50-325-40 MG TABS 1 four time s a day as needed for heacache [id number] 47024927959 Active Shonna Parker APRN Active SUMATRIPTAN SUCCINATE 100 MG TABS 1 tablet by mouth at onset of migraine as needed SUMATRIPTAN SUCCINATE 88344528713 Active Shonna Lucianodian er [employer] Active LORATADINE 10 MG TABS Take one by mouth daily LORATADINE 98669210246 Active Baltazar Childers MD Active OMEPRAZOLE 20 MG CPDR Take one by mouth daily OMEPRAZOLE 78554964048 Active KENDALL Juarez Active HYDROXYZINE HCL 25 MG TABS Take one by mouth daily HYDROXYZINE HCL 93630809128 Active Baltazar Childers MD Active ALPRAZOLAM 1 MG TABS 1 tablet by mouth daily at bedtime for restles s leg ALPRAZOLAM 12294528325 Active Baltazar Childers MD Active METFORMIN HCL 1000 MG TABS Take one by mouth twice daily METFORMIN HCL 55151990092 Active Baltazar Childers MD Active TIZANIDINE HCL 4 MG TABS 1 daily as needed for muscle spasm 2011 TIZANIDINE HCL 4 MG TABS 546176 TIZANIDINE HCL Inactiv e PHENTERMINE HCL 37.5 MG TABS Take one by mouth daily 2 PHENTERMINE HCL 37.5 MG TABS 463341 PHENTERMINE HCL Inactive CRESTOR 10 MG TABS 1 by mouth every day C RESTOR 10 MG TABS 980590 ROSUVASTATIN CALCIUM Inactive LIPITOR 20 MG TABS Take one by mouth daily in evening LIPITOR 20 MG TABS 659580 ATORVASTATIN CALCIUM Inactive DEPO-TESTOSTERONE 200 MG/ML OIL as directed 8 DEPO-TESTOSTERONE 200 MG/ML OIL 416941 TESTOSTERONE CYPIONATE Inactive NAPROXEN 500 MG TABS 1 tablet by mouth twice daily 201 07/27/22 NAPROXEN 500 MG TABS 949251 NAPROXEN Inactive GABAPENTIN 300 MG CAPS 1 po qd x 2 days, then 1 po BID x 2 d ays, then 1 po TID GABAPENTIN 300 MG CAPS 421091 GABAPENTIN Inact amie ONETOUCH ULTRA BLUE STRP Test twice a day ONETOUCH ULTRA BLUE STRP GLUCOSE BLOOD Inactive NAPROXEN SODIUM 220 MG ORAL TABS 1 three times a day as needed 2 NAPROXEN SODIUM 220 MG ORAL TABS 076039 NAPROXEN SODIUM Inactive TOUJEO SOLOSTAR 300 UNIT/ML SC SOPN 10 units SC daily TOUJEO SOLOSTAR 300 UNIT/ML SC SOPN INSULIN GLARGINE Inac tive SUCRALFATE 1 GM TABS 1 four times a day to coat the stomach 2015 SUCRALFATE 1 GM TABS 310483 SUCRALFATE Inactive Immunizations Vaccine Administration Date Value Standard Floyd cription pneumococcal immunization administered Pneumovax 23 [CVX33] pneumococcal polysaccharide vaccine, 23 valent Seasonal influenza vaccine, injectable, containing preservative, for > 3 years old (Afluria, FluLaval, Fluzone, Fluvirin, Fluarix, Agriflu(>= 18 yo)) Fluzone (>3 yrs.) [[id number]] Influenza, seasonal, inject able Seasonal influenza vaccine, injectable, containing preservative, for > 3 years old (Afluria, FluLaval, Fluzone, Fluvirin, Fluarix, Agriflu(>= 18 yo)) Fluzone (>3 yrs.) [[id number]] Influenza, seasonal, inject able Vital Signs Date [...] pressure, diastolic - 8462-4 76 mm[Hg] BP salmeorn blood pressure, systolic - 8480-6 124 mm[Hg] [...] C - Chemistry sodium, serum 139 mmol/L 465-838 1558/07/07 potassium, serum 4.5 mmol/L 3.5-5.2 chloride, serum [...] Panel - Chemistry sodium, serum 143 mmol/L 580-850 5138/12/19 carbon dioxide, venous blood 32.5 mmol/L 21.0-32 .0 potassium, serum 4.9 mmol/L 3.5-5.2 chloride, serum 101 mmol/L 98-107 blood glucose 129 mg/dL 65-110 urea nitrogen, blood 18 mg/dL 7-18 creatinine, serum 1.79 mg/dL 0.55-1.30 alanine aminotransferase (SGPT), serum 34 U/L 12-78 aspartate aminotransferase (SGOT), serum 26 U/L 15-37 calcium, serum 8.9 mg/dL 8.5-10.1 bilirubin, serum, total 0.30 mg/dL 0.00-1.00 cholesterol, serum 214 mg/dL 834-486 3295/12/19 triglyceride, serum, fasting 351 mg/dL 30-200 HDL [...] Panel - Chemistry sodium, serum 141 mmol/L 611-131 2574/08/08 potassium, serum 4.9 mmol/L 3.5-5.2 chloride, serum 101 mmol/L 98-107 carbon dioxide, venous blood 34.1 mmol/L 21.0-32 .0 creatinine, serum 1.98 mg/dL 0.55-1.30 blood glucose 193 mg/dL 65-110 urea nitrogen, blood 30 mg/dL 7-18 calcium, serum 9.8 mg/dL 8.5-10.1 Encounters Code Encounter Date Provider Facility CPT-30661 Level 4 Est. Patient 15:44:38 CDT Shonna Parker APRN [facility] CPT-15994 Level 4 Est. Patient 11:34:17 CDT Baltazar Childers MD [facility] CPT-48686 Level 3 Est. Patient 16:40:40 CDT Baltazar Childers MD [facility] CPT-81883 Level 4 Est. Patient 10:41:24 CDT Baltazar Childers MD [facility]-07126 Level 4 Est. Patient 16:01:48 CDT Baltazar Childers MD [facility]-88745 Level 4 Est. Patient 16:54:07 [employer] Baltazar Childers MD [facility]-70247 Level 4 Est. Patient 15:42:12 CDT Baltazar [facility] CPT-53797 Level 4 Est. Patient 11:29:55 CDT Baltazar Childers MD [facility]-92937 Level 4 Est. Patient 14:15:19 CDT Baltazar Childers MD [facility]-20604 Level 4 Est. Patient 12:20:13 CDT Baltazar Childers MD [facility]-70742 Level 4 Est. Patient 14:52:45 [employer] Baltazar Childers [facility] CPT-52231 Level 4 Est. Patient 14:18:34 [employer] Baltazar Childers MD [facility]-82637 Level 4 Est. Patient 15:18:29 CDT Baltazar Childers MD [facility] CPT-70366 Level 3 Est. Patient 12:45:34 CDT Baltazar Childers MD [facility] CPT-43307 Level 3 Est. Patient 10:10:11 CDT Baltazar Childers MD [facility] CPT-90212 Level 3 Est. Patient 14:07:50 CDT Baltazar Childers MD [facility]-26492 Level 4 Est. Patient 12:26:10 [employer] Baltazar Childers MD [facility]-30670 Level 4 Est. Patient 14:45:38 CDT Baltazar Childers MD [facility] CPT-21942 Level 4 New Patient 12:30:48 CDT Baltazar hinton MD [facility] Procedures Code Procedure Name Date Entry Date Standard Desc ription CPT-48545 Lipid - LAB USE ONLY 17:39:15 [employer] 9 CPT-12254 HGBA1C - LAB USE ONLY 17:39:15 [employer] CPT-60256 CMP - LAB USE ONLY 17:39:14 [employer] CPT-53367 Venipuncture Draw Fee 17:39:14 [employer] CPT-02012 First Vx - Ix admin via ID I M or jet injects without counseling by physician 16:55:17 [employer] CPT-65783 Fluzone Quadrivalent Intramuscular Suspe nsion 0.5 ML 16:55:17 [employer] CPT-35038 Renal Panel - LAB USE ONLY 17:39:20 CDT 201 10/31/07 CPT-20459 CBC - LAB USE ONLY 17:39:20 CDT CPT-98307 Venipuncture Draw Fee 17:39:20 CDT CPT-25736 Venipuncture Draw Fee 14:33:30 CDT CPT-62240 Renal Panel - LAB USE ONLY 14:33:30 CDT 201 10/31/07 CPT-57897 CBC - LAB USE ONLY 14:33:29 CDT CPT-42562 Venipuncture Draw Fee 14:50:21 [employer] CPT-54784 Immunization Single Admin 17:35:35 CDT 2014 CPT-06526 Fluzone Quadrivalent preservative free ( >=3yrs.) 17:35:35 CDT CPT-92099 Venipuncture Draw Fee 12:10:27 [employer] CPT-57725 Fluzone Quadrivalent Intramuscular Suspe nsion 0.5 ML 10:49:13 CDT CPT-05174 First Vx Component - Ix admi n via ID IM or jet inj without physician counseling 15:17:19 [employer] CPT-15688 Pneumovax 23 15:17:19 [employer] CPT-83801 Pneumovax 14:52:45 [employer] CPT-06711 Venipuncture Draw Fee 14:06:30 [employer] CPT-000 Give Appropriate Flu Vaccine 14:18:34 [employer] 2 CPT-96382 Administration single or combination vac cine inc oral 14:46:00 [employer] CPT-95990 Influenza split virus > age 3 14:46:00 [employer] CPT-OV Office Visit 19:13:16 CDT CPT-40741 Zostavax 18:41:56 CDT CPT-55826 Administration single or combination vac cine inc oral 12:56:39 CDT CPT-43956 Zoster Vaccine (Zostavax) 12:56:39 CDT 2012 CPT-92953 Venipuncture Draw Fee 10:58:57 CDT CPT-02183 Sono pelvis non OB uterus ovaries cervix 17:45:04 CDT CPT-24672 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
--- OUTSIDE RECORDS SUMMARY | 2019-10-27 12:36 | XMS REPORT | Clinical Summary ---
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 Active Elab Faux RMA Need for prophylacti c vaccination [...] MISC use 1 daily INSULIN PEN NEEDLE 25908102826 Active Martita Herbert RMA Active TOUJEO SOLOSTAR 300 UNIT/ML SC SOPN 10 units SC daily INSULIN GLARGINE 26184322964 No Longer Active Martita Herbert RMA Active LANTUS SOLOSTAR 100 UNIT/ML SC SOPN 10 units SC daily INSULIN GLARGINE 15578831859 Active KENDALL Juarez Active NAPROXEN SODIUM 220 MG ORAL TABS 1 three times a day as needed 2 NAPROXEN SODIUM 29914167076 No Longer Active Baltazar Childers MD Active ATORVASTATIN CALCIUM 20 MG ORAL TABS Take 1 tab daily ATORVASTATIN CALCIUM 87129408092 Active KENDALL Juarez Active FUROSEMIDE 40 MG TABS Take one by mouth daily FUROSEMIDE 51425603548 Active Baltazar Childers MD Active LISINOPRIL 20 MG TABS Take one by mouth daily at bedtime LISINOPRIL 13074872820 Active Baltazar Childers MD Active ONETOUCH ULTRA BLUE STRP Test twice a day GLUCO SE BLOOD 87936384500 No Longer Active Baltazar Childers MD Active TRUEPLUS LANCETS 33G MISC Test twice a day LANCET S 20083935871 Active KENDALL Juarez Active TRUEDRAW LANCING DEVICE MISC Test twice a day L ANCET DEVICES 46416753970 Active Baltazar Childers MD Active TRUETRACK TEST STRP Test twice a day GLUCOSE BLOO D 98925925113 Active KENDALL Juarez Active TRUETRACK BLOOD GLUCOSE W/DEVICE KIT Test twice a day BLOOD GLUCOSE MONITORING SUPPL 82790960847 Active Baltazar Childers MD Activ e HYDROCODONE-ACETAMINOPHEN 7.5-325 MG TABS Take 1 tab every 6-8 hour s PRN HYDROCODONE-ACETAMINOPHEN 06514565974 Active Baltazar Childers MD Active NORTRIPTYLINE HCL 50 MG CAPS 1 every night for neuropathy 4 NORTRIPTYLINE HCL 37837020571 Active Baltazar Childers MD Acti ve GABAPENTIN 300 MG CAPS 1 three times a day GABAPE NTIN 45293536236 Active Baltazar Childers MD Active GABAPENTIN 300 MG CAPS 1 po qd x 2 days, then 1 po BID x 2 d ays, then 1 po TID GABAPENTIN 13374682192 No Longer Active Baltazar silverman MD Active TRAMADOL HCL 50 MG TABS 1 twice a day as needed for pain TRAMADOL HCL 97001250958 Active Baltazar Childers MD Active NAPROXEN 500 MG TABS 1 tablet by mouth twice daily NAPROXEN 56602186214 No Longer Active Baltazar Childers MD Active PROAIR HFA 108 (90 BASE) MCG/ACT AERS 2 puffs four times a d ay as needed ALBUTEROL SULFATE 24971574287 Active KENDALL Juarez Active DEPO-TESTOSTERONE 200 MG/ML OIL as directed RUFINO TOSTERONE CYPIONATE 56912887895 No Longer Active Baltazar Childers MD Active LIPITOR 20 MG TABS Take one by mouth daily in evening ATORVASTATIN CALCIUM 86987448457 No Longer Active Baltazar Childers MD Activ e CRESTOR 10 MG TABS 1 by mouth every day R OSUVASTATIN CALCIUM 47922151702 No Longer Active Baltazar Childers MD Activ e PHENTERMINE HCL 37.5 MG TABS Take one by mouth daily 2 PHENTERMINE HCL 30084989138 No Longer Active Baltazar Childers MD Activ e ROBAXIN-750 750 MG TABS Take one by mouth daily ME THOCARBAMOL 92876049564 Active Baltazar Childers MD Active TIZANIDINE HCL 4 MG TABS 1 daily as needed for muscle spasm 2011 TIZANIDINE HCL 25252345012 No Longer Active Dawna Salazar RN Active [id number] 50-325-40 MG TABS 1 four time s a day as needed for heacache [id number] 16100536017 Active Baltazar Childers MD Active SUMATRIPTAN SUCCINATE 100 MG TABS 1 tablet by mouth at onset of migraine as needed SUMATRIPTAN SUCCINATE 36658203082 Active KENDALL Juarez Active LORATADINE 10 MG TABS Take one by mouth daily LORATADINE 93629930560 Active Baltazar Childers MD Active OMEPRAZOLE 20 MG CPDR Take one by mouth daily OMEPRAZOLE 05947031669 Active [place] Fitzgeralder Active HYDROXYZINE HCL 25 MG TABS Take one by mouth daily HYDROXYZINE HCL 89146334839 Active Baltazar Childers MD Active GLIPIZIDE 10 MG TABS 1 tablet by mouth twice daily GLIPIZIDE 99758759389 Active Baltazar Childers MD Active ALPRAZOLAM 1 MG TABS 1 tablet by mouth daily at bedtime for restles s leg ALPRAZOLAM 73342253163 Active Baltazar Childers MD Active METFORMIN HCL 1000 MG TABS Take one by mouth twice daily METFORMIN HCL 80143839978 Active Baltazar Childers MD Active TIZANIDINE HCL 4 MG TABS 1 daily as needed for muscle spasm 2011 TIZANIDINE HCL 4 MG TABS 690938 TIZANIDINE HCL Inactiv e PHENTERMINE HCL 37.5 MG TABS Take one by mouth daily 2 PHENTERMINE HCL 37.5 MG TABS 448090 PHENTERMINE HCL Inactive CRESTOR 10 MG TABS 1 by mouth every day C RESTOR 10 MG TABS 080267 ROSUVASTATIN CALCIUM Inactive LIPITOR 20 MG TABS Take one by mouth daily in evening LIPITOR 20 MG TABS 899308 ATORVASTATIN CALCIUM Inactive DEPO-TESTOSTERONE 200 MG/ML OIL as directed 8 DEPO-TESTOSTERONE 200 MG/ML OIL 402299 TESTOSTERONE CYPIONATE Inactive NAPROXEN 500 MG TABS 1 tablet by mouth twice daily 201 07/27/22 NAPROXEN 500 MG TABS 901550 NAPROXEN Inactive GABAPENTIN 300 MG CAPS 1 po qd x 2 days, then 1 po BID x 2 d ays, then 1 po TID GABAPENTIN 300 MG CAPS 345158 GABAPENTIN Inact amie ONETOUCH ULTRA BLUE STRP Test twice a day ONETOUCH ULTRA BLUE STRP GLUCOSE BLOOD Inactive NAPROXEN SODIUM 220 MG ORAL TABS 1 three times a day as needed 2 NAPROXEN SODIUM 220 MG ORAL TABS 471139 NAPROXEN SODIUM Inactive TOUJEO SOLOSTAR 300 UNIT/ML [...] Fluarix, Agriflu(>= 18 yo)) Fluzone (>3 yrs.) [[id number]] Influenza, seasonal, inject able Seasonal influenza vaccine, injectable, containing preservative, for > 3 years old (Afluria, FluLaval, Fluzone, Fluvirin, Fluarix, Agriflu(>= 18 yo)) Fluzone (>3 yrs.) [[id number]] Influenza, seasonal, inject able Vital Signs Date [...] C - Chemistry sodium, serum 139 mmol/L 392-555 5539/07/07 potassium, serum 4.5 mmol/L 3.5-5.2 chloride, serum [...] 7.9 % 4.3-6.0 sodium, serum 139 mmol/L 221-872 4252/02/04 potassium, serum 5.4 mmol/L 3.5-5.2 chloride, serum [...] Panel - Chemistry sodium, serum 138 mmol/L 129-664 3691/11/23 carbon dioxide, venous blood 32.4 mmol/L 21.0-32 .0 potassium, serum 5.7 mmol/L 3.5-5.2 chloride, serum 98 mmol/L 98-107 blood glucose 136 mg/dL 65-110 urea nitrogen, blood 18 mg/dL 7-18 creatinine, serum 1.71 mg/dL 0.55-1.30 alanine aminotransferase (SGPT), serum 71 U/L 12-78 aspartate aminotransferase (SGOT), serum 34 U/L 15-37 calcium, serum 9.4 mg/dL 8.5-10.1 bilirubin, serum, total 0.40 mg/dL 0.00-1.00 cholesterol, serum 405 mg/dL 942-263 6656/11/23 triglyceride, serum, fasting 709 mg/dL 30-200 HDL [...] Panel - Chemistry sodium, serum 141 mmol/L 182-887 4206/08/08 potassium, serum 4.9 mmol/L 3.5-5.2 chloride, serum [...] mg/dL Encounters Code Encounter Date Provider Facility CPT-16489 Level 3 Est. Patient 16:40:40 CDT Baltazar Childers MD [facility] CPT-89355 Level 4 Est. Patient 10:41:24 CDT Baltazar Childers MD [facility]-69022 Level 4 Est. Patient 16:01:48 CDT Baltazar Childers MD [facility]-33691 Level 4 Est. Patient 16:54:07 [employer]AR[employer] Baltazar Childers MD [facility]-14970 Level 4 Est. Patient 15:42:12 CDT Baltazar Childers MD [facility] CPT-75320 Level 4 Est. Patient 11:29:55 CDT Baltazar Childers MD [facility]-59626 Level 4 Est. Patient 14:15:19 CDT Baltazar Childers MD [facility] CPT-50250 Level 4 Est. Patient 12:20:13 CDT Baltazar Childers MD [facility]-57986 Level 4 Est. Patient 14:52:45 [employer] Baltazar Childers MD [facility] CPT-36470 Level 4 Est. Patient 14:18:34 [employer] Baltazar Childers MD [facility]-66505 Level 4 Est. Patient 15:18:29 CDT Baltazar Childers MD [facility] CPT-28529 Level 3 Est. Patient 12:45:34 CDT Baltazar Childers MD [facility] CPT-14249 Level 3 Est. Patient 10:10:11 CDT Baltazar Childers MD [facility]-44253 Level 3 Est. Patient 14:07:50 CDT Baltazar Childers MD [facility]-99339 Level 4 Est. Patient 12:26:10 [employer] Baltazar Childers MD [facility]-95593 Level 4 Est. Patient 14:45:38 CDT Baltazar Childers MD [facility] CPT-26846 Level 4 New Patient 12:30:48 CDT Baltazar hinton MD [facility] Procedures Code Procedure Name Date Entry Date Standard Desc ription CPT-27087 Renal Panel - LAB USE ONLY 17:39:20 CDT 201 10/31/07 CPT-93330 CBC - LAB USE ONLY 17:39:20 CDT CPT-47141 Venipuncture Draw Fee 17:39:20 CDT CPT-71227 Venipuncture Draw Fee 14:33:30 CDT CPT-08866 Renal Panel - LAB USE ONLY 14:33:30 CDT 201 10/31/07 CPT-31145 CBC - LAB USE ONLY 14:33:29 CDT CPT-22983 Venipuncture Draw Fee 14:50:21 [employer] CPT-48264 Immunization Single Admin 17:35:35 CDT 2014 CPT-38252 Fluzone Quadrivalent preservative free ( >=3yrs.) 17:35:35 CDT CPT-59497 Venipuncture Draw Fee 12:10:27 J[employer] CPT-73579 Fluzone Quadrivalent Intramuscular Suspe nsion 0.5 ML 10:49:13 CDT CPT-65107 First Vx Component - Ix admi n via ID IM or jet inj without physician counseling 15:17:19 [employer]ING [employer] CPT-77414 Pneumovax 23 15:17:19 [employer]ING [employer] CPT-01925 Pneumovax 14:52:45 [employer] CPT-74021 Venipuncture Draw Fee 14:06:30 [employer] CPT-000 Give Appropriate Flu Vaccine 14:18:34 JEWEL [employer]ARING GRINDER 2 013/11/04 CPT-87545 Administration single or combination vac cine inc oral 14:46:00 JEW[employer]ARING [employer]ER CPT-07653 Influenza split virus > age 3 14:46:00 JEWEL [employer]ARING [employer]ER CPT-OV Office Visit 19:13:16 CDT CPT-14306 Zostavax 18:41:56 CDT CPT-37007 Administration single or combination vac cine inc oral 12:56:39 CDT CPT-98357 Zoster Vaccine (Zostavax) 12:56:39 CDT 2012 CPT-87528 Venipuncture Draw Fee 10:58:57 CDT CPT-38339 Sono pelvis non OB uterus ovaries cervix 17:45:04 CDT CPT-24039 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
--- OUTSIDE RECORDS SUMMARY | 2019-10-27 12:36 | XMS REPORT | Clinical Summary ---
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 Benign neoplasm of colon PERIPHERAL NEUROPATHY 356.9 [...] ronary atherosclerosis of unspecified type of vessel, [place] or graft OTH NONSPC ABN FINDNG [...] 1 tab daily for HTN AMLODIPINE BESYLATE 86723361870 Active Ct Ledesma LPN Active SYNTHROID 0.1 MG TAB 1 tablet by mouth daily LE VOTHYROXINE SODIUM 61854274703 Active Carina Tucker LPN Active GLIPIZIDE 10 MG TAB take 2 tablets twice daily GLIPIZIDE 34210446659 Active Baltazar Childers MD Active SUCRALFATE 1 GM TABS 1 four times a day to coat the stomach 2015 SUCRALFATE 65384701282 No Longer Active Baltazar Childers MD Active PEN NEEDLES 31G X 6 MM MISC use 1 daily INSULIN PEN NEEDLE 13284683282 Active Bella Suarez 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 TOUJEO SOLOSTAR 300 UNIT/ML SC SOPN 10 units SC daily INSULIN GLARGINE 71444803205 No Longer Active Martita Godinez RMA Active LANTUS SOLOSTAR 100 UNIT/ML SC SOPN 10 units SC daily INSULIN GLARGINE 61055416023 Active KENDALL Juarez Active NAPROXEN SODIUM 220 MG ORAL TABS 1 three times a day as needed 2 NAPROXEN SODIUM 76281309253 No Longer Active Baltazar Childers MD Active ATORVASTATIN CALCIUM 20 MG ORAL TABS Take 1 tab daily ATORVASTATIN CALCIUM 57944968246 Active Baltazar Childers MD Active FUROSEMIDE 40 MG TABS Take one by mouth daily FUROSEMIDE 74711909744 Active Baltazar Childers MD Active LISINOPRIL 20 MG TABS Take one by mouth daily at bedtime LISINOPRIL 56529552391 No Longer Active Baltazar Childers MD Active ONETOUCH ULTRA BLUE STRP Test twice a day GLUCO SE BLOOD 69169316333 No Longer Active Baltazar Childers MD Active TRUEPLUS LANCETS 33G MISC Test twice a day LANCET S 41166907106 Active KENDALL Juarez Active TRUEDRAW LANCING DEVICE MISC Test twice a day L ANCET DEVICES 18921912626 Active Baltazar Childers MD Active TRUETRACK TEST STRP Test twice a day GLUCOSE BLOO D 38535078692 Active KENDALL Juarez Active TRUEMARVELCK BLOOD GLUCOSE W/DEVICE KIT Test twice a day BLOOD GLUCOSE MONITORING SUPPL 99450842611 Active Baltazar Childers MD Activ e HYDROCODONE-ACETAMINOPHEN 7.5-325 MG TABS Take 1 tab every 6-8 hour s PRN HYDROCODONE-ACETAMINOPHEN 82149714501 Active Baltazar Childers MD Active NORTRIPTYLINE HCL 50 MG CAPS 1 every night for neuropathy 4 NORTRIPTYLINE HCL 07070639228 Active Baltazar Childers MD Acti ve GABAPENTIN 300 MG CAPS 1 three times a day GABAPE NTIN 20384169580 Active Baltazar Childers MD Active GABAPENTIN 300 MG CAPS 1 po qd x 2 days, then 1 po BID x 2 d ays, then 1 po TID GABAPENTIN 64659598118 No Longer Active Baltazar silverman MD Active TRAMADOL HCL 50 MG TABS 1 twice a day as needed for pain TRAMADOL HCL 91142470160 Active Baltazar Childers MD Active NAPROXEN 500 MG TABS 1 tablet by mouth twice daily NAPROXEN 24103875113 No Longer Active Baltazar Childers MD Active PROAIR HFA 108 (90 BASE) MCG/ACT AERS 2 puffs four times a d ay as needed ALBUTEROL SULFATE 63737570175 Active Baltazar Childers MD Active DEPO-TESTOSTERONE 200 MG/ML OIL as directed RUFINO TOSTERONE CYPIONATE 44361431706 No Longer Active Baltazar Childers MD Active LIPITOR 20 MG TABS Take one by mouth daily in evening ATORVASTATIN CALCIUM 59929157264 No Longer Active Baltazar Childers MD Activ e CRESTOR 10 MG TABS 1 by mouth every day R OSUVASTATIN CALCIUM 03581960415 No Longer Active Baltazar Childers MD Activ e PHENTERMINE HCL 37.5 MG TABS Take one by mouth daily 2 PHENTERMINE HCL 59140835734 No Longer Active Baltazar Childers MD Activ e ROBAXIN-750 750 MG TABS Take one by mouth daily ME THOCARBAMOL 86944547746 Active Baltazar Childers MD Active TIZANIDINE HCL 4 MG TABS 1 daily as needed for muscle spasm 2011 TIZANIDINE HCL 61753828721 No Longer Active Dawna Salazar RN Active [id number]-WKMIKMIX 50-325-40 MG TABS 1 four time s a day as needed for heacache TTRTXIEBRG-NMLN-[id number] 23424093416 Active Baltazar Childers MD Active SUMATRIPTAN SUCCINATE 100 MG TABS 1 tablet by mouth at onset of migraine as needed SUMATRIPTAN SUCCINATE 99476183140 Active Shonna richey APRN Active LORATADINE 10 MG TABS Take one by mouth daily LORATADINE 28037413005 Active Bethrenetta Carr KENDALL Active OMEPRAZOLE 20 MG CPDR Take one by mouth daily OMEPRAZOLE 94274953744 Active Baltazar Childers MD Active HYDROXYZINE HCL 25 MG TABS Take one by mouth daily HYDROXYZINE HCL 17333743369 Active Baltazar Childers MD Active ALPRAZOLAM 1 MG TABS 1 tablet by mouth daily at bedtime for restles s leg ALPRAZOLAM 82319884615 Active Baltazar Childers MD Active METFORMIN HCL 1000 MG TABS Take one by mouth twice daily METFORMIN HCL 16074463274 Active Baltazar Childers MD Active TIZANIDINE HCL 4 MG TABS 1 daily as needed for muscle spasm 2011 TIZANIDINE HCL 4 MG TABS 730005 TIZANIDINE HCL Inactiv e PHENTERMINE HCL 37.5 MG TABS Take one by mouth daily 2 PHENTERMINE HCL 37.5 MG TABS 636010 PHENTERMINE HCL Inactive CRESTOR 10 MG TABS 1 by mouth every day C RESTOR 10 MG TABS 317390 ROSUVASTATIN CALCIUM Inactive LIPITOR 20 MG TABS Take one by mouth daily in evening LIPITOR 20 MG TABS 306965 ATORVASTATIN CALCIUM Inactive DEPO-TESTOSTERONE 200 MG/ML OIL as directed 8 DEPO-TESTOSTERONE 200 MG/ML OIL 088491 TESTOSTERONE CYPIONATE Inactive NAPROXEN 500 MG TABS 1 tablet by mouth twice daily 201 07/27/22 NAPROXEN 500 MG TABS 526458 NAPROXEN Inactive GABAPENTIN 300 MG CAPS 1 po qd x 2 days, then 1 po BID x 2 d ays, then 1 po TID GABAPENTIN 300 MG CAPS 209968 GABAPENTIN Inact amie ONETOUCH ULTRA BLUE STRP Test twice a day ONETOUCH ULTRA BLUE STRP GLUCOSE BLOOD Inactive NAPROXEN SODIUM 220 MG ORAL TABS 1 three times a day as needed 2 NAPROXEN SODIUM 220 MG ORAL TABS 986701 NAPROXEN SODIUM Inactive TOUJEO SOLOSTAR 300 UNIT/ML SC SOPN 10 units SC daily TOUJEO SOLOSTAR 300 UNIT/ML SC SOPN INSULIN GLARGINE Inac tive SUCRALFATE 1 GM TABS 1 four times a day to coat the stomach 2015 SUCRALFATE 1 GM TABS 674194 SUCRALFATE Inactive Immunizations Vaccine Administration Date Value Standard Floyd cription pneumococcal immunization administered Pneumovax 23 [CVX33] pneumococcal polysaccharide vaccine, 23 valent Seasonal influenza vaccine, injectable, containing preservative, for > 3 years old (Afluria, FluLaval, Fluzone, Fluvirin, Fluarix, Agriflu(>= 18 yo)) Fluzone (>3 yrs.) [VTH027] Influenza, seasonal, inject able Seasonal influenza vaccine, injectable, containing preservative, for > 3 years old (Afluria, FluLaval, Fluzone, Fluvirin, Fluarix, Agriflu(>= 18 yo)) Fluzone (>3 yrs.) [[id number]] Influenza, seasonal, inject able Vital Signs Date [...] C - Chemistry sodium, serum 143 mmol/L 244-670 2338/06/19 potassium, serum 5.9 mmol/L 3.5-5.2 chloride, serum [...] Panel - Chemistry sodium, serum 143 mmol/L 942-262 1863/12/19 carbon dioxide, venous blood 32.5 mmol/L 21.0-32 .0 potassium, serum 4.9 mmol/L 3.5-5.2 chloride, serum 101 mmol/L 98-107 blood glucose 129 mg/dL 65-110 urea nitrogen, blood 18 mg/dL 7-18 creatinine, serum 1.79 mg/dL 0.55-1.30 alanine aminotransferase (SGPT), serum 34 U/L 12-78 aspartate aminotransferase (SGOT), serum 26 U/L 15-37 calcium, serum 8.9 mg/dL 8.5-10.1 bilirubin, serum, total 0.30 mg/dL 0.00-1.00 cholesterol, serum 214 mg/dL 963-841 7776/12/19 triglyceride, serum, fasting 351 mg/dL 30-200 HDL [...] Panel - Chemistry sodium, serum 141 mmol/L 340-058 1460/08/08 potassium, serum 4.9 mmol/L 3.5-5.2 chloride, serum 101 mmol/L 98-107 carbon dioxide, venous blood 34.1 mmol/L 21.0-32 .0 creatinine, serum 1.98 mg/dL 0.55-1.30 blood glucose 193 mg/dL 65-110 urea nitrogen, blood 30 mg/dL 7-18 calcium, serum 9.8 mg/dL 8.5-10.1 Encounters Code Encounter Date Provider Facility CPT-03386 Level 4 Est. Patient 14:22:31 CDT Baltazar Childers MD [facility] CPT-12871 Level 4 Est. Patient 15:44:38 CDT Shonna Parker [facility] CPT-62364 Level 4 Est. Patient 11:34:17 CDT Baltazar Childers MD [facility] CPT-41198 Level 3 Est. Patient 16:40:40 CDT Baltazar Childers MD [facility] CPT-30710 Level 4 Est. Patient 10:41:24 CDT Baltazar Childers MD [facility] CPT-76065 Level 4 Est. Patient 16:01:48 CDT Baltazar Childers MD [facility] CPT-04554 Level 4 Est. Patient 16:54:07 DEBT COLLECTOR Baltazar Childers MD [facility] CPT-44845 Level 4 Est. Patient 15:42:12 CDT Baltazar Childers MD [facility] CPT-64099 Level 4 Est. Patient 11:29:55 CDT Baltazar Childers MD [facility] CPT-70522 Level 4 Est. Patient 14:15:19 CDT Baltazar Childers MD [facility] CPT-18780 Level 4 Est. Patient 12:20:13 CDT Baltazar Childers MD [facility] CPT-11407 Level 4 Est. Patient 14:52:45 DEBT COLLECTOR Baltazar Childers MD [facility] CPT-47386 Level 4 Est. Patient 14:18:34 DEBT COLLECTOR Baltazar Childers MD [facility] CPT-25526 Level 4 Est. Patient 15:18:29 CDT Baltazar Childers MD [facility] CPT-76679 Level 3 Est. Patient 12:45:34 CDT Baltazar Childers MD [facility] CPT-83792 Level 3 Est. Patient 10:10:11 CDT Baltazar Childers MD [facility] CPT-76374 Level 3 Est. Patient 14:07:50 CDT Baltazar Childers MD [facility] CPT-11911 Level 4 Est. Patient 12:26:10 DEBT COLLECTOR Baltazar Childers MD [facility] CPT-61701 Level 4 Est. Patient 14:45:38 CDT Baltazar Childers MD [facility] CPT-30777 Level 4 New Patient 12:30:48 CDT Baltazar hinton MD [facility] Procedures Code Procedure Name Date Entry Date Standard Desc ription CPT-81707 Lipid - LAB USE ONLY 17:39:15 DEBT COLLECTOR 9 CPT-96567 HGBA1C - LAB USE ONLY 17:39:15 DEBT COLLECTOR CPT-42948 CMP - LAB USE ONLY 17:39:14 DEBT COLLECTOR CPT-63982 Venipuncture Draw Fee 17:39:14 DEBT COLLECTOR CPT-56955 First Vx - Ix admin via ID I M or jet injects without counseling by physician 16:55:17 DEBT COLLECTOR CPT-29261 Fluzone Quadrivalent Intramuscular Suspe nsion 0.5 ML 16:55:17 DEBT COLLECTOR CPT-20419 Renal Panel - LAB USE ONLY 17:39:20 CDT 201 10/31/07 CPT-85523 CBC - LAB USE ONLY 17:39:20 CDT CPT-42484 Venipuncture Draw Fee 17:39:20 CDT CPT-37384 Venipuncture Draw Fee 14:33:30 CDT CPT-58963 Renal Panel - LAB USE ONLY 14:33:30 CDT 201 10/31/07 CPT-63250 CBC - LAB USE ONLY 14:33:29 CDT CPT-23188 Venipuncture Draw Fee 14:50:21 DEBT COLLECTOR CPT-53780 Immunization Single Admin 17:35:35 CDT 2014 CPT-86567 Fluzone Quadrivalent preservative free ( >=3yrs.) 17:35:35 CDT CPT-03222 Venipuncture Draw Fee 12:10:27 DEBT COLLECTOR CPT-30196 Fluzone Quadrivalent Intramuscular Suspe nsion 0.5 ML 10:49:13 CDT CPT-38629 First Vx Component - Ix admi n via ID IM or jet inj without physician counseling 15:17:19 DEBT COLLECTOR CPT-54135 Pneumovax 23 15:17:19 DEBT COLLECTOR CPT-38406 Pneumovax 14:52:45 DEBT COLLECTOR CPT-94645 Venipuncture Draw Fee 14:06:30 DEBT COLLECTOR CPT-000 Give Appropriate Flu Vaccine 14:18:34 DEBT COLLECTOR 2 CPT-88940 Administration single or combination vac cine inc oral 14:46:00 DEBT COLLECTOR CPT-17632 Influenza split virus > age 3 14:46:00 DEBT COLLECTOR CPT-OV Office Visit 19:13:16 CDT CPT-43598 Zostavax 18:41:56 CDT CPT-15381 Administration single or combination vac cine inc oral 12:56:39 CDT CPT-27156 Zoster Vaccine (Zostavax) 12:56:39 CDT 2012 CPT-68235 Venipuncture Draw Fee 10:58:57 CDT CPT-85093 Sono pelvis non OB uterus ovaries cervix 17:45:04 CDT CPT-61587 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
--- OUTSIDE RECORDS SUMMARY | 2019-10-27 12:37 | XMS REPORT | Clinical Summary ---
Author Author Admin, Elba Lance Michelle [facility] Address Unknown Phone Unavailable Allergies, 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 [employer] Benign neoplasm of colon PERIPHERAL NEUROPATHY 356.9 [...] ronary atherosclerosis of unspecified type of vessel, quechan or graft OTH NONSPC ABN FINDNG RAD&OTH [...] 1 tab daily for HTN AMLODIPINE BESYLATE 60254656124 Active Ct Ledesma LPN Active SYNTHROID 0.1 MG TAB 1 tablet by mouth daily LE VOTHYROXINE SODIUM 64194930833 Active Carina Tucker LPN Active GLIPIZIDE 10 MG TAB take 2 tablets twice daily GLIPIZIDE 34977501747 Active Baltazar Childers MD Active SUCRALFATE 1 GM TABS 1 four times a day to coat the stomach 2015 SUCRALFATE 85077165535 No Longer Active Baltazar Childers MD Active PEN NEEDLES 31G X 6 MM MISC use 1 daily INSULIN PEN NEEDLE 94968828362 Active Bella Suarez [employer] INS[employer] Active TOUJEO SOLOSTAR 300 UNIT/ML SC SOPN 10 units SC daily INSULIN GLARGINE 89350948453 No Longer Active Martita Godinez RMA Active LANTUS SOLOSTAR 100 UNIT/ML SC SOPN 10 units SC daily INSULIN GLARGINE 88120862678 Active Baltazar Childers MD Active NAPROXEN SODIUM 220 MG ORAL TABS 1 three times a day as needed 2 NAPROXEN SODIUM 68058216155 No Longer Active Baltazar Childers MD Active ATORVASTATIN CALCIUM 20 MG ORAL TABS Take 1 tab daily ATORVASTATIN CALCIUM 30566370214 Active Baltazar Childers MD Active FUROSEMIDE 40 MG TABS Take one by mouth daily FUROSEMIDE 53301961516 Active Baltazar Childers MD Active LISINOPRIL 20 MG TABS Take one by mouth daily at bedtime LISINOPRIL 28255246510 No Longer Active Baltazar Childers MD Active ONETOUCH ULTRA BLUE STRP Test twice a day GLUCO SE BLOOD 24857980906 No Longer Active Baltazar Childers MD Active TRUEPLUS LANCETS 33G MISC Test twice a day LANCET S 83756442089 Active KENDALL Juarez Active TRUEDRAW LANCING DEVICE MISC Test twice a day L ANCET DEVICES 99584511951 Active Baltazar Childers MD Active TRUETRACK TEST STRP Test twice a day GLUCOSE BLOO D 58433857261 Active KENDALL Juarez Active TRUETRACK BLOOD GLUCOSE W/DEVICE KIT Test twice a day BLOOD GLUCOSE MONITORING SUPPL 98827246478 Active Baltazar Childers MD Activ e HYDROCODONE-ACETAMINOPHEN 7.5-325 MG TABS Take 1 tab every 6-8 hour s PRN HYDROCODONE-ACETAMINOPHEN 46602561412 Active Baltazar Childers MD Active NORTRIPTYLINE HCL 50 MG CAPS 1 every night for neuropathy 4 NORTRIPTYLINE HCL 93462259519 Active Baltazar Childers MD Acti ve GABAPENTIN 300 MG CAPS 1 three times a day GABAPE NTIN 95354615294 Active Baltazar Childers MD Active GABAPENTIN 300 MG CAPS 1 po qd x 2 days, then 1 po BID x 2 d ays, then 1 po TID GABAPENTIN 10513601218 No Longer Active Baltazar silverman MD Active TRAMADOL HCL 50 MG TABS 1 twice a day as needed for pain TRAMADOL HCL 13413473297 Active Baltazar Childers MD Active NAPROXEN 500 MG TABS 1 tablet by mouth twice daily NAPROXEN 67624989658 No Longer Active Baltazar Childers MD Active PROAIR HFA 108 (90 BASE) MCG/ACT AERS 2 puffs four times a d ay as needed ALBUTEROL SULFATE 68453723491 Active Baltazar Childers MD Active DEPO-TESTOSTERONE 200 MG/ML OIL as directed RUFINO TOSTERONE CYPIONATE 26742550942 No Longer Active Baltazar Childers MD Active LIPITOR 20 MG TABS Take one by mouth daily in evening ATORVASTATIN CALCIUM 28586893359 No Longer Active Baltazar Childers MD Activ e CRESTOR 10 MG TABS 1 by mouth every day R OSUVASTATIN CALCIUM 81262382557 No Longer Active Baltazar Childers MD Activ e PHENTERMINE HCL 37.5 MG TABS Take one by mouth daily 2 PHENTERMINE HCL 63621776283 No Longer Active Baltazar Childers MD Activ e ROBAXIN-750 750 MG TABS Take one by mouth daily ME THOCARBAMOL 31947319894 Active Baltazar Childers MD Active TIZANIDINE HCL 4 MG TABS 1 daily as needed for muscle spasm 2011 TIZANIDINE HCL 80803196717 No Longer Active Dawna Salazar RN Active [id number] 50-325-40 MG TABS 1 four time s a day as needed for heacache BUDUGWNPXV-UCFP-HVFCONPO 46703861612 Active Baltazar Childers MD Active SUMATRIPTAN SUCCINATE 100 MG TABS 1 tablet by mouth at onset of migraine as needed SUMATRIPTAN SUCCINATE 37482281691 Active Shonna richey APRN Active LORATADINE 10 MG TABS Take one by mouth daily LORATADINE 83291858761 Active Bethrenetta Carr CÉSARBetsey Active OMEPRAZOLE 20 MG CPDR Take one by mouth daily OMEPRAZOLE 60770804812 Active Baltazar Childers MD Active HYDROXYZINE HCL 25 MG TABS Take one by mouth daily HYDROXYZINE HCL 04824934728 Active Baltazar Childers MD Active ALPRAZOLAM 1 MG TABS 1 tablet by mouth daily at bedtime for restles s leg ALPRAZOLAM 86455856973 Active Baltazar Childers MD Active METFORMIN HCL 1000 MG TABS Take one by mouth twice daily METFORMIN HCL 77163233746 Active Baltazar Childers MD Active TIZANIDINE HCL 4 MG TABS 1 daily as needed for muscle spasm 2011 TIZANIDINE HCL 4 MG TABS 177968 TIZANIDINE HCL Inactiv e PHENTERMINE HCL 37.5 MG TABS Take one by mouth daily 2 PHENTERMINE HCL 37.5 MG TABS 908890 PHENTERMINE HCL Inactive CRESTOR 10 MG TABS 1 by mouth every day C RESTOR 10 MG TABS 158817 ROSUVASTATIN CALCIUM Inactive LIPITOR 20 MG TABS Take one by mouth daily in evening LIPITOR 20 MG TABS 981240 ATORVASTATIN CALCIUM Inactive DEPO-TESTOSTERONE 200 MG/ML OIL as directed 8 DEPO-TESTOSTERONE 200 MG/ML OIL 543574 TESTOSTERONE CYPIONATE Inactive NAPROXEN 500 MG TABS 1 tablet by mouth twice daily 201 07/27/22 NAPROXEN 500 MG TABS 971423 NAPROXEN Inactive GABAPENTIN 300 MG CAPS 1 po qd x 2 days, then 1 po BID x 2 d ays, then 1 po TID GABAPENTIN 300 MG CAPS 785464 GABAPENTIN Inact amie ONETOUCH ULTRA BLUE STRP Test twice a day ONETOUCH ULTRA BLUE STRP GLUCOSE BLOOD Inactive NAPROXEN SODIUM 220 MG ORAL TABS 1 three times a day as needed 2 NAPROXEN SODIUM 220 MG ORAL TABS 493704 NAPROXEN SODIUM Inactive TOUJEO SOLOSTAR 300 UNIT/ML SC SOPN 10 units SC daily TOUJEO SOLOSTAR 300 UNIT/ML SC SOPN INSULIN GLARGINE Inac tive SUCRALFATE 1 GM TABS 1 four times a day to coat the stomach 2015 SUCRALFATE 1 GM TABS 978590 SUCRALFATE Inactive Immunizations Vaccine Administration Date Value Standard Floyd cription pneumococcal immunization administered Pneumovax 23 [CVX33] pneumococcal polysaccharide vaccine, 23 valent Seasonal influenza vaccine, injectable, containing preservative, for > 3 years old (Afluria, FluLaval, Fluzone, Fluvirin, Fluarix, Agriflu(>= 18 yo)) Fluzone (>3 yrs.) [[id number]] Influenza, seasonal, inject able Seasonal influenza vaccine, injectable, containing preservative, for > 3 years old (Afluria, FluLaval, Fluzone, Fluvirin, Fluarix, Agriflu(>= 18 yo)) Fluzone (>3 yrs.) [[id number]] Influenza, seasonal, inject able Vital Signs Date [...] C - Chemistry sodium, serum 143 mmol/L 030-166 6196/06/19 potassium, serum 5.9 mmol/L 3.5-5.2 chloride, serum [...] Panel - Chemistry sodium, serum 143 mmol/L 199-363 0138/12/19 carbon dioxide, venous blood 32.5 mmol/L 21.0-32 .0 potassium, serum 4.9 mmol/L 3.5-5.2 chloride, serum 101 mmol/L 98-107 blood glucose 129 mg/dL 65-110 urea nitrogen, blood 18 mg/dL 7-18 creatinine, serum 1.79 mg/dL 0.55-1.30 alanine aminotransferase (SGPT), serum 34 U/L 12-78 aspartate aminotransferase (SGOT), serum 26 U/L 15-37 calcium, serum 8.9 mg/dL 8.5-10.1 bilirubin, serum, total 0.30 mg/dL 0.00-1.00 cholesterol, serum 214 mg/dL 351-136 1289/12/19 triglyceride, serum, fasting 351 mg/dL 30-200 HDL [...] 4.3-6.0 Lab Report: Renal Panel - Chemistry creatinine, serum 1.98 mg/dL 0.55-1.30 carbon dioxide, venous blood 34.1 mmol/L 21.0-32 .0 chloride, serum 101 mmol/L 98-107 potassium, serum 4.9 mmol/L 3.5-5.2 sodium, serum 141 mmol/L 455-872 2488/08/08 blood glucose 193 mg/dL 65-110 urea nitrogen, blood 30 mg/dL 7-18 calcium, serum 9.8 mg/dL 8.5-10.1 Encounters Code Encounter Date Provider Facility CPT-17398 Level 4 Est. Patient 14:22:31 CDT Baltazar Childers MD [facility] CPT-87355 Level 4 Est. Patient 15:44:38 CDT Shonna Parker APRN [facility] CPT-70972 Level 4 Est. Patient 11:34:17 CDT Baltazar Childers MD [facility] CPT-82273 Level 3 Est. Patient 16:40:40 CDT Baltazar Childers MD [facility] CPT-76676 Level 4 Est. Patient 10:41:24 CDT Baltazar Childers MD [facility] CPT-70521 Level 4 Est. Patient 16:01:48 CDT Baltazar Childers MD [facility]-31536 Level 4 Est. Patient 16:54:07 ROLL GRINDER Baltazar Childers MD [facility]-18026 Level 4 Est. Patient 15:42:12 CDT Baltazar Childers MD [facility] CPT-94235 Level 4 Est. Patient 11:29:55 CDT Baltazar Childers MD [facility] CPT-88055 Level 4 Est. Patient 14:15:19 CDT Baltazar Childers MD [facility]-84629 Level 4 Est. Patient 12:20:13 CDT Baltazar Childers MD [facility]-70666 Level 4 Est. Patient 14:52:45 ROLL GRINDER Baltazar Childers MD [facility]-03800 Level 4 Est. Patient 14:18:34 ROLL GRINDER Baltazar Childers MD [facility] CPT-06154 Level 4 Est. Patient 15:18:29 CDT Baltazar Childers MD [facility] CPT-00678 Level 3 Est. Patient 12:45:34 CDT Baltazar Childers MD [facility] CPT-80302 Level 3 Est. Patient 10:10:11 CDT Baltazar Childers MD [facility] CPT-41252 Level 3 Est. Patient 14:07:50 CDT Baltazar Childers MD [facility] CPT-75643 Level 4 Est. Patient 12:26:10 ROLL GRINDER Baltazar Childers MD [facility]-88564 Level 4 Est. Patient 14:45:38 CDT Baltazar Childers MD [facility] CPT-72873 Level 4 New Patient 12:30:48 CDT Baltazar hinton MD [facility] Procedures Code Procedure Name Date Entry Date Standard Desc ription CPT-39587 Lipid - LAB USE ONLY 17:39:15 ROLL GRINDER 9 CPT-78040 HGBA1C - LAB USE ONLY 17:39:15 ROLL GRINDER CPT-28645 CMP - LAB USE ONLY 17:39:14 ROLL GRINDER CPT-84783 Venipuncture Draw Fee 17:39:14 ROLL GRINDER CPT-40552 First Vx - Ix admin via ID I M or jet injects without counseling by physician 16:55:17 ROLL GRINDER CPT-94297 Fluzone Quadrivalent Intramuscular Suspe nsion 0.5 ML 16:55:17 ROLL GRINDER CPT-45845 Renal Panel - LAB USE ONLY 17:39:20 CDT 201 10/31/07 CPT-13192 CBC - LAB USE ONLY 17:39:20 CDT CPT-31510 Venipuncture Draw Fee 17:39:20 CDT CPT-48445 Venipuncture Draw Fee 14:33:30 CDT CPT-51997 Renal Panel - LAB USE ONLY 14:33:30 CDT 201 10/31/07 CPT-49358 CBC - LAB USE ONLY 14:33:29 CDT CPT-49827 Venipuncture Draw Fee 14:50:21 ROLL GRINDER CPT-13807 Immunization Single Admin 17:35:35 CDT 2014 CPT-90538 Fluzone Quadrivalent preservative free ( >=3yrs.) 17:35:35 CDT CPT-76154 Venipuncture Draw Fee 12:10:27 ROLL GRINDER CPT-60656 Fluzone Quadrivalent Intramuscular Suspe nsion 0.5 ML 10:49:13 CDT CPT-57007 First Vx Component - Ix admi n via ID IM or jet inj without physician counseling 15:17:19 ROLL GRINDER CPT-69548 Pneumovax 23 15:17:19 ROLL GRINDER CPT-76636 Pneumovax 14:52:45 ROLL GRINDER CPT-19768 Venipuncture Draw Fee 14:06:30 ROLL GRINDER CPT-000 Give Appropriate Flu Vaccine 14:18:34 ROLL GRINDER 2 CPT-01792 Administration single or combination vac cine inc oral 14:46:00 ROLL GRINDER CPT-98891 Influenza split virus > age 3 14:46:00 ROLL GRINDER CPT-OV Office Visit 19:13:16 CDT CPT-08548 Zostavax 18:41:56 CDT CPT-35936 Administration single or combination vac cine inc oral 12:56:39 CDT CPT-86145 Zoster Vaccine (Zostavax) 12:56:39 CDT 2012 CPT-02990 Venipuncture Draw Fee 10:58:57 CDT CPT-04242 Sono pelvis non OB uterus ovaries cervix 17:45:04 CDT CPT-24526 Sono retroperitoneal complete kidneys an d bladder 17:14:36 CDT CPT-OV Office Visit 14:59:38 ROLL GRINDER CPT-J1070 Depo Testosterone 100 mg 14:50:13 CDT 03/05 CPT-01699 Abx/Therapy Injection 14:50:13 CDT CPT-17658 Administration single or combination vac cine inc oral 14:34:43 CDT CPT-98470 Influenza split virus > age 3 14:34:43 CDT CPT-J1070 Depo Testosterone 100 mg 17:37:13 CDT 01/11 CPT-18047 Abx/Therapy Injection 17:37:13 CDT CPT-74350 Venipuncture Draw Fee 16:30:13 CDT CPT-79468 Venipuncture Draw Fee 16:29:43 CDT CPT-J1070 Depo Testosterone 100 mg 14:45:38 CDT 01/11
--- OUTSIDE RECORDS SUMMARY | 2019-10-27 12:37 | XMS REPORT | Clinical Summary ---
Author Author Admin, Elba Lance [employer] [facility] Address Unknown Phone Unavailable Allergies, 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 [employer] Benign neoplasm of colon PERIPHERAL NEUROPATHY [...] ronary atherosclerosis of unspecified type of vessel, fond du lac or graft OTH NONSPC ABN FINDNG RAD&OTH [...] three times a day 201 12/03/26 GABAPENTIN [id number] No Longer Active Baltazar Childers MD Activ e LISINOPRIL 20 MG ORAL TABLET 1 tablet by mouth daily at night 2016 LISINOPRIL 98391015530 Active Baltazar Childers MD Active ZITHROMAX Z-ISAIAS 250 MG ORAL TABLET Take two tablets to day and then 1 tablet daily for 4 days AZITHROMYCIN 31298120992 No Longer A ctive Baltazar Childers MD Active LANTUS SOLOSTAR 100 UNIT/ML SUBCUTANEOUS SOLUTION PEN- INJECTOR 30 units SC daily INSULIN GLARGINE 41836547085 Active Baltazar Childesr MD Active AMLODIPINE BESYLATE 5 MG ORAL TABLET 1 tab daily for HTN AMLODIPINE BESYLATE 15843904582 Active Baltazar Childers MD Active SYNTHROID 100 MCG ORAL TABLET 1 tablet by mouth daily LEVOTHYROXINE SODIUM 56029167052 Active Baltazar Childers MD Active GLIPIZIDE 10 MG ORAL TABLET take 2 tablets twice daily GLIPIZIDE 34927724997 Active Baltazar Childers MD Active SUCRALFATE 1 GM ORAL TABLET 1 four times a day to coat the stoma ch SUCRALFATE 70529891359 No Longer Active Baltazar Childers MD Active PEN NEEDLES 31G X 6 MM use 1 daily INSULIN PEN NE EDLE 72522835476 Active KENDALL Juarez Active CELINA POWERSOSTNAKITA 300 UNIT/ML SUBCUTANEOUS SOLUTION PEN- INJECTOR 10 units SC daily INSULIN GLARGINE 31754031199 No Longer Active Rola Godinez RMA Active NAPROXEN SODIUM 220 MG ORAL TABLET 1 three times a day as needed NAPROXEN SODIUM 30024516216 No Longer Active Baltazar Childers MD Active ATORVASTATIN CALCIUM 20 MG ORAL TABLET Take 1 tab daily ATORVASTATIN CALCIUM 23024795945 Active Baltazar Childers MD A ctive FUROSEMIDE 40 MG ORAL TABLET Take one by mouth daily FUROSEMIDE 98708811427 Active Jessy Arellano LPN Active LISINOPRIL 20 MG ORAL TABLET Take one by mouth daily at bedtime LISINOPRIL 78849787041 No Longer Active Baltazar Childers MD Active ONETOUCH ULTRA BLUE IN VITRO STRIP Test twice a day 07/11/11 GLUCOSE BLOOD 71851150195 No Longer Active Baltazar Childers MD Acti ve TRUEPLUS LANCETS 33G Test twice a day LANCETS 5718984 0113 Active KENDALL Juarez Active TRUEDRAW LANCING DEVICE Test twice a day LANCET DEVICES 56195717473 Active Baltazar Childers MD Active TRUETRACK TEST IN VITRO STRIP Test twice a day GLUCOSE BLOOD 82301350575 Active KENDALL Juarez Active TRUETRACK BLOOD GLUCOSE w/Device KIT Test twice a day BLOOD GLUCOSE MONITORING SUPPL 17881813837 Active Baltazar Childers MD Activ e HYDROCODONE-ACETAMINOPHEN 7.5-325 MG ORAL TABLET Take 1 tab every 6-8 hours PRN HYDROCODONE-ACETAMINOPHEN 00954953210 Active Baltazar Nickerson MD Active NORTRIPTYLINE HCL 50 MG ORAL CAPSULE 1 every night for neuropathy 2 NORTRIPTYLINE HCL 36341646376 Active Baltazar Childers MD Acti ve GABAPENTIN 300 MG ORAL CAPSULE 1 po qd x 2 days, then 1 po BID x 2 days, then 1 po TID GABAPENTIN 78469596445 No Longer Active Baltazar Childers MD Active TRAMADOL HCL 50 MG ORAL TABLET 1 twice a day as needed for pain 201 07/27/28 TRAMADOL HCL 26390599700 Active Baltazar Childers MD Active NAPROXEN 500 MG ORAL TABLET 1 tablet by mouth twice daily NAPROXEN 93327080729 No Longer Active Baltazar Childers MD Active PROAIR HFA 108 (90 Base) MCG/ACT INHALATION AEROSOL SO LUTION 2 puffs four times a day as needed ALBUTEROL SULFATE 06951473654 Active Paul Childers MD Active DEPO-TESTOSTERONE 200 MG/ML INTRAMUSCULAR SOLUTION as directed TESTOSTERONE CYPIONATE 63286107113 No Longer Active Baltazar Childers MD Active LIPITOR 20 MG ORAL TABLET Take one by mouth daily in evening ATORVASTATIN CALCIUM 54746616929 No Longer Active Baltazar Childers MD Active CRESTOR 10 MG ORAL TABLET 1 by mouth every day ROSUVASTATIN CALCIUM 83569496323 No Longer Active Baltazar Childers MD Active PHENTERMINE HCL 37.5 MG ORAL TABLET Take one by mouth daily PHENTERMINE HCL 29603296454 No Longer Active Baltazar Childers MD Ac tive ROBAXIN-750 750 MG ORAL TABLET Take one by mouth daily METHOCARBAMOL 12205053303 Active Baltazar Childers MD Active TIZANIDINE HCL 4 MG ORAL TABLET 1 daily as needed for muscle spa sm TIZANIDINE HCL 69308727631 No Longer Active Dawna Salazar RN Active [id number] 50-325-40 MG ORAL TABLET 1 fo ur times a day as needed for heacache [id number] 07951841683 Active Baltazar Childers MD Active SUMATRIPTAN SUCCINATE 100 MG ORAL TABLET 1 tablet by m outh at onset of migraine as needed SUMATRIPTAN SUCCINATE 69222635126 Active Bertha Vazquez LPN Active LORATADINE 10 MG ORAL TABLET Take one by mouth daily LORATADINE 24371802814 Active Baltazar Childers MD Active OMEPRAZOLE 20 MG ORAL CAPSULE DELAYED RELEASE Take one by mouth jostin ly OMEPRAZOLE 37293701793 Active Baltazar Childers MD Active HYDROXYZINE HCL 25 MG ORAL TABLET Take one by mouth daily HYDROXYZINE HCL 71650046593 Active Baltazar Childers MD Active ALPRAZOLAM 1 MG ORAL TABLET 1 tablet by [facility] ALPRAZOLAM 50871182854 Active Baltazar Childers MD Active METFORMIN HCL 1000 MG ORAL TABLET Take one by mouth twice daily METFORMIN HCL 68500532527 Active Baltazar Childers MD Active TIZANIDINE HCL 4 MG ORAL TABLET 1 daily as needed for muscle spa sm TIZANIDINE HCL 4 MG ORAL TABLET 843630 TIZANIDINE HCL Inactive PHENTERMINE HCL 37.5 MG ORAL TABLET Take one by mouth daily PHENTERMINE HCL 37.5 MG ORAL TABLET 203736 PHENTERMINE HCL Inac tive CRESTOR 10 MG ORAL TABLET 1 by mouth every day CRESTOR 10 MG ORAL TABLET 257692 ROSUVASTATIN CALCIUM Inactive LIPITOR 20 MG ORAL TABLET Take one by mouth daily in evening LIPITOR 20 MG ORAL TABLET 702765 ATORVASTATIN CALCIUM Inactive DEPO-TESTOSTERONE 200 MG/ML INTRAMUSCULAR SOLUTION as directed DEPO-TESTOSTERONE 200 MG/ML INTRAMUSCULAR SOLUTION 713470 RUFINO TOSTERONE CYPIONATE Inactive NAPROXEN 500 MG ORAL TABLET 1 tablet by mouth twice daily NAPROXEN 500 MG ORAL TABLET 536861 NAPROXEN Inactive GABAPENTIN 300 MG ORAL CAPSULE 1 po qd x 2 days, then 1 po BID x 2 days, then 1 po TID GABAPENTIN 300 MG ORAL CAPSULE 771866 GABAP ENTIN Inactive ONETOUCH ULTRA BLUE IN VITRO STRIP Test twice a day 07/11/11 ONETOUCH ULTRA BLUE IN VITRO STRIP GLUCOSE BLOOD Inact aime NAPROXEN SODIUM 220 MG ORAL TABLET 1 three times a day as needed NAPROXEN SODIUM 220 MG ORAL TABLET 968577 NAPROXEN SODI UM Inactive TOUJEO SOLOSTAR 300 UNIT/ML SUBCUTANEOUS SOLUTION PEN- INJECTOR 10 units SC daily TOUJEO SOLOSTAR 300 UNIT/ML SUBCUTANEOUS SOLUTION PEN-INJECTOR INSULIN GLARGINE Inactive SUCRALFATE 1 GM ORAL TABLET 1 four times a day to coat the stoma ch SUCRALFATE 1 GM ORAL TABLET 804841 SUCRALFATE Inac tive GABAPENTIN 300 MG ORAL CAPSULE 1 three times a day 201 12/03/26 GABAPENTIN 300 MG ORAL CAPSULE 350511 GABAPENTIN Inactive ZITHROMAX Z-ISAIAS 250 MG ORAL TABLET Take two tablets to day and then 1 tablet daily for 4 days ZITHROMAX Z-ISAIAS 250 MG ORAL TAB LET 157169 AZITHROMYCIN Inactive Immunizations Vaccine Administration Date Value Standard Floyd cription pneumococcal immunization administered Pneumovax 23 [CVX33] pneumococcal polysaccharide vaccine, 23 valent Seasonal influenza vaccine, injectable, containing preservative, for > 3 years old (Afluria, FluLaval, Fluzone, Fluvirin, Fluarix, Agriflu(>= 18 yo)) Fluzone (>3 yrs.) [ZQX143] Influenza, seasonal, inject able Seasonal influenza vaccine, injectable, containing preservative, for > 3 years old (Afluria, FluLaval, Fluzone, Fluvirin, Fluarix, Agriflu(>= 18 yo)) Fluzone (>3 yrs.) [TOP723] Influenza, seasonal, inject able Vital Signs Date [...] - Chem istry sodium, serum 139 mmol/L 486-759 3775/10/03 urea nitrogen, blood 19 mg/dL 7-18 creatinine, [...] % of total hemoglobin 8.2 % 4.3-6.0 blood glucose 189 mg/dL 65-110 carbon dioxide, venous blood 30.2 mmol/L 21.0-32 .0 chloride, serum 105 mmol/L 98-107 potassium, serum 5.9 mmol/L 3.5-5.2 sodium, serum 143 mmol/L 136-145 Lab Report: CBC, Renal Panel - Chemistry sodium, serum 142 mmol/L 202-157 0544/08/11 potassium, serum 4.8 mmol/L 3.5-5.2 chloride, serum 103 mmol/L 98-107 carbon dioxide, venous blood 38.7 mmol/L 21.0-32 .0 creatinine, serum 1.69 mg/dL 0.60-1.30 blood glucose 179 mg/dL 65-110 urea nitrogen, blood 20 mg/dL 7-18 calcium, serum 9.9 mg/dL 8.5-10.1 Lab Report: CBC, Renal Panel - Hematolog y leukocyte count, blood 7.2 10^3/MM^3 10*3/mm3 4.6-10.2 mean corpuscular hemoglobin concentration, RBC 32.5 G/DL % 31.8-35.4 red blood cell distribution width 14.4 % 11 .6-14.8 platelet count 304 10^3/MM^3 10*3/mm3 439-168 9714/08/11 erythrocyte (RBC) count 4.02 10^6/MM^3 10*6/mm3 3.80-5.8 0 hemoglobin, blood 12.5 g/dL 12.0-16.0 hematocrit, blood 38.4 % 37.0-47.0 mean corpuscular volume, RBC 96 fL 80-97 mean corpuscular hemoglobin, RBC 31.1 pg 27. 0-31.2 Lab Report: HEMOGLOBIN A1c, MicroAlb Ran dom [...] (L) - Chemistry cholesterol, serum 209 mg/dL [phone]/12/27 triglyceride, serum, fasting 329 mg/dL 30-200 HDL cholesterol, serum 56 mg/dL 32-60 LDL cholesterol, serum 87 mg/dL 0-130 TSH 3.60 m[iU]/mL 0.36-3.74 Encounters Code Encounter Date Provider Facility CPT-12170 Level 4 Est. Patient 16:21:19 RING STRIKER Baltazar Childers MD [facility] CPT-57165 Level 4 Est. Patient 12:25:11 CDT Baltazar Childers MD [facility]-36218 Level 4 Est. Patient 14:22:31 CDT Baltazar Childers MD [facility]-03096 Level 4 Est. Patient 15:44:38 CDT Shonna Elena CASTELLANOS [facility]-95782 Level 4 Est. Patient 11:34:17 CDT Baltazar Childers MD [facility]-34345 Level 3 Est. Patient 16:40:40 CDT Baltazar Childers MD [facility]-76091 Level 4 Est. Patient 10:41:24 CDT Baltazar Childers MD [facility]-78188 Level 4 Est. Patient 16:01:48 CDT Baltazar Childers MD [facility]-99619 Level 4 Est. Patient 16:54:07 RING STRIKER Baltazar Childers MD [facility]-53454 Level 4 Est. Patient 15:42:12 CDT Baltazar Childers MD [facility] CPT-73336 Level 4 Est. Patient 11:29:55 CDT Baltazar Childers MD [facility] [place]-14420 Level 4 Est. Patient 14:15:19 CDT Baltazar Childers MD [facility] [place]-30483 Level 4 Est. Patient 12:20:13 CDT Baltazar Childers MD [facility] CPT-22555 Level 4 Est. Patient 14:52:45 RING STRIKER Baltazar Childers MD [facility] CPT-66956 Level 4 Est. Patient 14:18:34 RING STRIKER Baltazar Childers MD [facility] [place]-19874 Level 4 Est. Patient 15:18:29 CDT Baltazar Childers MD [facility] [place]-39617 Level 3 Est. Patient 12:45:34 CDT Baltazar Childers MD [facility] CPT-28057 Level 3 Est. Patient 10:10:11 CDT Baltazar Childers MD [facility] CPT-73675 Level 3 Est. Patient 14:07:50 CDT Baltazar Childers MD [facility] CPT-06558 Level 4 Est. Patient 12:26:10 RING STRIKER Baltazar Childers MD [facility] CPT-09176 Level 4 Est. Patient 14:45:38 CDT Baltazar Childers MD [facility] CPT-22926 Level 4 New Patient 12:30:48 CDT Baltazar hinton MD [facility] Procedures Code Procedure Name Date Entry Date Standard Desc ription CPT-82809 First Vx - Ix admin via ID I M or jet injects without counseling by physician 13:08:59 CDT CPT-38143 Fluzone Quadrivalent Intramuscular Suspe nsion 0.5 ML 13:08:59 CDT CPT-16835 Venipuncture Draw Fee 12:04:12 CDT CPT-99206 Lipid - LAB USE ONLY 17:39:15 RING STRIKER 9 CPT-59977 HGBA1C - LAB USE ONLY 17:39:15 RING STRIKER CPT-68395 CMP - LAB USE ONLY 17:39:14 RING STRIKER CPT-54964 Venipuncture Draw Fee 17:39:14 RING STRIKER CPT-99775 First Vx - Ix admin via ID I M or jet injects without counseling by physician 16:55:17 RING STRIKER CPT-06361 Fluzone Quadrivalent Intramuscular Suspe nsion 0.5 ML 16:55:17 RING STRIKER CPT-72838 Renal Panel - LAB USE ONLY 17:39:20 CDT 201 10/31/07 CPT-95945 CBC - LAB USE ONLY 17:39:20 CDT CPT-96475 Venipuncture Draw Fee 17:39:20 CDT CPT-55736 Venipuncture Draw Fee 14:33:30 CDT CPT-45808 Renal Panel - LAB USE ONLY 14:33:30 CDT 201 10/31/07 CPT-75582 CBC - LAB USE ONLY 14:33:29 CDT CPT-50899 Venipuncture Draw Fee 14:50:21 RING STRIKER CPT-62182 Immunization Single Admin 17:35:35 CDT 2014 CPT-11008 Fluzone Quadrivalent preservative free ( >=3yrs.) 17:35:35 CDT CPT-01120 Venipuncture Draw Fee 12:10:27 RING STRIKER CPT-97599 Fluzone Quadrivalent Intramuscular Suspe nsion 0.5 ML 10:49:13 CDT CPT-44686 First Vx Component - Ix admi n via ID IM or jet inj without physician counseling 15:17:19 RING STRIKER CPT-23225 Pneumovax 23 15:17:19 RING STRIKER CPT-66978 Pneumovax 14:52:45 RING STRIKER CPT-96760 Venipuncture Draw Fee 14:06:30 RING STRIKER CPT-000 Give Appropriate Flu Vaccine 14:18:34 RING STRIKER 2 CPT-04823 Administration single or combination vac cine inc oral 14:46:00 RING STRIKER CPT-95034 Influenza split virus > age 3 14:46:00 RING STRIKER CPT-OV Office Visit 19:13:16 CDT CPT-27153 Zostavax 18:41:56 CDT CPT-42606 Administration single or combination vac cine inc oral 12:56:39 CDT CPT-35341 Zoster Vaccine (Zostavax) 12:56:39 CDT 2012 CPT-38043 Venipuncture Draw Fee 10:58:57 CDT CPT-52533 Sono pelvis non OB uterus ovaries cervix 17:45:04 CDT CPT-28042 Sono retroperitoneal complete kidneys an d bladder 17:14:36 CDT CPT-OV Office Visit 14:59:38 RING STRIKER CPT-J1070 Depo Testosterone 100 mg 14:50:13 CDT 03/05 CPT-94016 Abx/Therapy Injection 14:50:13 CDT CPT-07126 Administration single or combination vac cine inc oral 14:34:43 CDT CPT-53787 Influenza split virus > age 3 14:34:43 CDT CPT-J1070 Depo Testosterone 100 mg 17:37:13 CDT 01/11 CPT-71272 Abx/Therapy Injection 17:37:13 CDT CPT-40085 Venipuncture Draw Fee 16:30:13 CDT CPT-10329 Venipuncture Draw Fee 16:29:43 CDT CPT-J1070 Depo Testosterone 100 mg 14:45:38 CDT 01/11
--- OUTSIDE RECORDS SUMMARY | 2019-10-27 12:37 | XMS REPORT | Clinical Summary ---
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 Benign neoplasm of colon PERIPHERAL NEUROPATHY 356.9 [...] a day as needed 2 NAPROXEN SODIUM 79036972531 No Longer Active Baltazar Childers MD Active ATORVASTATIN CALCIUM 20 MG ORAL TABS Take 1 tab daily ATORVASTATIN CALCIUM 13277254079 Active Kelly Iraheta LPN Active FUROSEMIDE 40 MG TABS Take one by mouth daily FUROSEMIDE 21271198336 Active Baltazar Childers MD Active LISINOPRIL 20 MG TABS Take one by mouth daily at bedtime LISINOPRIL 61261711457 Active Baltazar Childers MD Active ONETOUCH ULTRA BLUE STRP Test twice a day GLUCO SE BLOOD 25370014359 No Longer Active Baltazar Childers MD Active TRUEPLUS LANCETS 33G MISC Test twice a day LANCET S 04382866367 Active Baltazar Childers MD Active TRUEDRAW LANCING DEVICE MISC Test twice a day L ANCET DEVICES 51033692679 Active Baltazar Childers MD Active TRUETRACK TEST STRP Test twice a day GLUCOSE BLOO D 60406842340 Active Baltazar Childers MD Active TRUETRACK BLOOD GLUCOSE W/DEVICE KIT Test twice a day BLOOD GLUCOSE MONITORING SUPPL 04475030305 Active Baltazar Childers MD Activ e HYDROCODONE-ACETAMINOPHEN 7.5-325 MG TABS Take 1 tab every 6-8 hour s PRN HYDROCODONE-ACETAMINOPHEN 84396090507 Active Baltazar Childers MD Active NORTRIPTYLINE HCL 50 MG CAPS 1 every night for neuropathy 4 NORTRIPTYLINE HCL 65146673329 Active Baltazar Childers MD Acti ve GABAPENTIN 300 MG CAPS 1 three times a day GABAPE NTIN 82130095584 Active BethCÉSAR HazelBetsey Active GABAPENTIN 300 MG CAPS 1 po qd x 2 days, then 1 po BID x 2 d ays, then 1 po TID GABAPENTIN 71878387791 No Longer Active Baltazar silverman MD Active TRAMADOL HCL 50 MG TABS 1 twice a day as needed for pain TRAMADOL HCL 29781465367 Active Baltazar Childers MD Active NAPROXEN 500 MG TABS 1 tablet by mouth twice daily NAPROXEN 29913481563 No Longer Active Baltazar Childers MD Active PROAIR HFA 108 (90 BASE) MCG/ACT AERS 2 puffs four times a d ay as needed ALBUTEROL SULFATE 62265412797 Active Baltazar Childers MD Active DEPO-TESTOSTERONE 200 MG/ML OIL as directed RUFINO TOSTERONE CYPIONATE 18437975477 No Longer Active Baltazar Childers MD Active LIPITOR 20 MG TABS Take one by mouth daily in evening ATORVASTATIN CALCIUM 13676350897 No Longer Active Baltazar Childers MD Activ e CRESTOR 10 MG TABS 1 by mouth every day R OSUVASTATIN CALCIUM 35132586678 No Longer Active Baltazar Childers MD Activ e PHENTERMINE HCL 37.5 MG TABS Take one by mouth daily 2 PHENTERMINE HCL 63286110861 No Longer Active Baltazar Childers MD Activ e ROBAXIN-750 750 MG TABS Take one by mouth daily ME THOCARBAMOL 04746499756 Active Baltazar Childers MD Active TIZANIDINE HCL 4 MG TABS 1 daily as needed for muscle spasm 2011 TIZANIDINE HCL 53258252253 No Longer Active Dawna Salazar RN Active [id number] 50-325-40 MG TABS 1 four time s a day as needed for heacache [id number] 61093100400 Active Baltazar Childers MD Active SUMATRIPTAN SUCCINATE 100 MG TABS 1 tablet by mouth at onset of migraine as needed SUMATRIPTAN SUCCINATE 08515542746 Active Melody Paez Active LORATADINE 10 MG TABS Take one by mouth daily LORATADINE 21692806551 Active Baltazar Childers MD Active OMEPRAZOLE 20 MG CPDR Take one by mouth daily OMEPRAZOLE 16988126262 Active Baltazar Childers MD Active HYDROXYZINE HCL 25 MG TABS Take one by mouth daily HYDROXYZINE HCL 97685594547 Active Baltazar Childers MD Active GLIPIZIDE 10 MG TABS 1 tablet by mouth twice daily GLIPIZIDE 32356406404 Active Baltazar Childers MD Active ALPRAZOLAM 1 MG TABS 1 tablet by mouth daily at bedtime for restles s leg ALPRAZOLAM 43548179713 Active Baltazar Childers MD Active METFORMIN HCL 1000 MG TABS Take one by mouth twice daily METFORMIN HCL 86407156964 Active Baltazar Childers MD Active TIZANIDINE HCL 4 MG TABS 1 daily as needed for muscle spasm 2011 TIZANIDINE HCL 4 MG TABS 817225 TIZANIDINE HCL Inactiv e PHENTERMINE HCL 37.5 MG TABS Take one by mouth daily 2 PHENTERMINE HCL 37.5 MG TABS 990154 PHENTERMINE HCL Inactive CRESTOR 10 MG TABS 1 by mouth every day C RESTOR 10 MG TABS ROSUVASTATIN CALCIUM Inactive LIPITOR 20 MG TABS Take one by mouth daily in evening LIPITOR 20 MG TABS 916456 ATORVASTATIN CALCIUM Inactive DEPO-TESTOSTERONE 200 MG/ML OIL as directed 8 DEPO-TESTOSTERONE 200 MG/ML OIL 527600 TESTOSTERONE CYPIONATE Inactive NAPROXEN 500 MG TABS 1 tablet by mouth twice daily 201 07/27/22 NAPROXEN 500 MG TABS 644069 NAPROXEN Inactive GABAPENTIN 300 MG CAPS 1 po qd x 2 days, then 1 po BID x 2 d ays, then 1 po TID GABAPENTIN 300 MG CAPS 759193 GABAPENTIN Inact amie ONETOUCH ULTRA BLUE STRP Test twice a day ONETOUCH ULTRA BLUE STRP GLUCOSE BLOOD Inactive NAPROXEN SODIUM 220 MG ORAL TABS 1 three times a day as needed 2 NAPROXEN SODIUM 220 MG ORAL TABS 862052 NAPROXEN SODIUM Inactive Immunizations Vaccine Administration Date Value Standard Floyd cription pneumococcal immunization administered Pneumovax 23 [CVX33] pneumococcal polysaccharide vaccine, 23 valent Seasonal influenza vaccine, injectable, containing preservative, for > 3 years old (Afluria, FluLaval, Fluzone, Fluvirin, Fluarix, Agriflu(>= 18 yo)) Fluzone (>3 yrs.) [[id number]] Influenza, seasonal, inject able Seasonal influenza vaccine, injectable, containing preservative, for > 3 years old (Afluria, FluLaval, Fluzone, Fluvirin, Fluarix, Agriflu(>= 18 yo)) Fluzone (>3 yrs.) [[id number]] Influenza, seasonal, inject able Vital Signs Date [...] - Chem istry sodium, serum 140 mmol/L 095-333 9027/05/05 potassium, serum 4.9 mmol/L 3.5-5.2 chloride, serum 99 mmol/L 98-107 carbon dioxide, venous blood 34.3 mmol/L 21.0-32 .0 blood glucose 132 mg/dL 65-110 calcium, serum 10.1 mg/dL 8.5-10.1 urea nitrogen, blood 23 mg/dL 7-18 creatinine, serum 2.00 mg/dL 0.60-1.30 Lab Report: CBC, HGBA1C, Renal Panel - C hemistry hemoglobin A1C, blood, as % of total hemoglobin 7.9 % 4.3-6.0 sodium, serum 139 mmol/L 125-126 9848/02/04 potassium, serum 5.4 mmol/L 3.5-5.2 chloride, serum [...] Panel - Chemistry sodium, serum 138 mmol/L 658-590 8681/11/23 carbon dioxide, venous blood 32.4 mmol/L 21.0-32 .0 potassium, serum 5.7 mmol/L 3.5-5.2 chloride, serum 98 mmol/L 98-107 blood glucose 136 mg/dL 65-110 urea nitrogen, blood 18 mg/dL 7-18 creatinine, serum 1.71 mg/dL 0.55-1.30 alanine aminotransferase (SGPT), serum 71 U/L 12-78 aspartate aminotransferase (SGOT), serum 34 U/L 15-37 calcium, serum 9.4 mg/dL 8.5-10.1 bilirubin, serum, total 0.40 mg/dL 0.00-1.00 cholesterol, serum 405 mg/dL 208-050 4172/11/23 triglyceride, serum, fasting 709 mg/dL 30-200 HDL cholesterol, serum 53 mg/dL 32-96 LDL cholesterol, serum 210 mg/dL 0-130 Lab Report: HGBA1C - Chemistry hemoglobin A1C, blood, as % of total hemoglobin 7.3 % 4.3-6.0 hemoglobin A1C, blood, as % of total hemoglobin 7.7 % 4.3-6.0 Lab Report: MICROALB/CREAT W/RATIO - Maryma jo albumin/creatinine ratio, urine < 30 mg/g mg/g{creat} 0-2 9 Lab Report: MICROALB/CREAT W/RATIO - Lab microalbumin, urine 10 0-19 Office Visit: Medication refill - Chemis try cholesterol, target level 200 mg/dL LDL target level 70 mg/dL HDL cholesterol, serum, target level 40 mg/dL triglyceride, target level 150 mg/dL Encounters Code Encounter Date Provider Facility CPT-78122 Level 4 Est. Patient 16:54:07 STATOR PLATE WASHER Baltazar Childers MD [facility] CPT-98320 Level 4 Est. Patient 15:42:12 CDT Baltazar Childers MD [facility] CPT-81113 Level 4 Est. Patient 11:29:55 CDT Baltazar Childers MD [facility] CPT-02790 Level 4 Est. Patient 14:15:19 CDT Baltazar Childers MD [facility] CPT-40357 Level 4 Est. Patient 12:20:13 CDT Baltazar Childers MD [facility] CPT-82911 Level 4 Est. Patient 14:52:45 STATOR PLATE WASHER Baltazar Childers MD [facility] CPT-83175 Level 4 Est. Patient 14:18:34 STATOR PLATE WASHER Baltazar Childers MD [facility] CPT-66956 Level 4 Est. Patient 15:18:29 CDT Baltazar Childers MD [facility] CPT-90915 Level 3 Est. Patient 12:45:34 CDT Baltazar Childers MD [facility] CPT-77510 Level 3 Est. Patient 10:10:11 CDT Baltazar Childers MD [facility] CPT-33217 Level 3 Est. Patient 14:07:50 CDT Baltazar Childers MD [facility] CPT-84434 Level 4 Est. Patient 12:26:10 STATOR PLATE WASHER Baltazar Childers MD [facility] CPT-60828 Level 4 Est. Patient 14:45:38 CDT Baltazar Childers MD [facility] CPT-05871 Level 4 New Patient 12:30:48 CDT Baltazar hinton MD [facility] Procedures Code Procedure Name Date Entry Date Standard Desc ription CPT-09698 Venipuncture Draw Fee 14:50:21 [employer]OR PLATE WASHER CPT-98984 Immunization Single Admin 17:35:35 CDT 2014 CPT-54869 Fluzone Quadrivalent preservative free ( >=3yrs.) 17:35:35 CDT CPT-41754 Venipuncture Draw Fee 12:10:27 STATOR PLATE WASHER CPT-01426 Fluzone Quadrivalent Intramuscular Suspe nsion 0.5 ML 10:49:13 CDT CPT-48128 First Vx Component - Ix admi n via ID IM or jet inj without physician counseling 15:17:19 STATOR PLATE WASHER CPT-21245 Pneumovax 23 15:17:19 STATOR PLATE WASHER CPT-56875 Pneumovax 14:52:45 STATOR PLATE WASHER CPT-16243 Venipuncture Draw Fee 14:06:30 STATOR PLATE WASHER CPT-000 Give Appropriate Flu Vaccine 14:18:34 STATOR PLATE WASHER 2 CPT-74774 Administration single or combination vac cine inc oral 14:46:00 STATOR PLATE WASHER CPT-24238 Influenza split virus > age 3 14:46:00 STATOR PLATE WASHER CPT-OV Office Visit 19:13:16 CDT CPT-60794 Zostavax 18:41:56 CDT CPT-50211 Administration single or combination vac cine inc oral 12:56:39 CDT CPT-68122 Zoster Vaccine (Zostavax) 12:56:39 CDT 2012 CPT-01664 Venipuncture Draw Fee 10:58:57 CDT CPT-72816 Sono pelvis non OB uterus ovaries cervix 17:45:04 CDT CPT-88901 Sono retroperitoneal complete kidneys an d bladder 17:14:36 CDT CPT-OV Office Visit 14:59:38 STATOR PLATE WASHER CPT-J1070 Depo Testosterone 100 mg 14:50:13 CDT 03/05 CPT-95866 Abx/Therapy Injection 14:50:13 CDT CPT-66796 Administration single or combination vac cine inc oral 14:34:43 CDT CPT-72853 Influenza split virus > age 3 14:34:43 CDT CPT-J1070 Depo Testosterone 100 mg 17:37:13 CDT 01/11 CPT-08866 Abx/Therapy Injection 17:37:13 CDT CPT-55873 Venipuncture Draw Fee 16:30:13 CDT CPT-47821 Venipuncture Draw Fee 16:29:43 CDT CPT-J1070 Depo Testosterone 100 mg 14:45:38 CDT 01/11
--- OUTSIDE RECORDS SUMMARY | 2019-10-27 12:37 | XMS REPORT | Clinical Summary ---
Author Author Abhishek, Elba Lance 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 Benign neoplasm of colon PERIPHERAL NEUROPATHY 356.9 [...] y atherosclerosis of unspecified type of vessel, [place] [...] MISC Test twice a day LANCET S 10827547100 Active Baltazar Childers MD Active TRUEDRAW LANCING DEVICE MISC Test twice a day L ANCET DEVICES 66605906482 Active Baltazar Childers MD Active TRUETRACK TEST STRP Test twice a day GLUCOSE BLOO D 65135644239 Active Baltazar Childers MD Active TRUETRACK BLOOD GLUCOSE W/DEVICE KIT Test twice a day BLOOD GLUCOSE MONITORING SUPPL 29917827335 Active Bella Suarez APRN Active HYDROCODONE-ACETAMINOPHEN 7.5-325 MG TABS Take 1 tab every 6-8 hour s PRN HYDROCODONE-ACETAMINOPHEN 44181101488 Active Baltazar Childers MD Active NORTRIPTYLINE HCL 50 MG CAPS 1 every night for neuropathy 4 NORTRIPTYLINE HCL 15830818541 Active Bella Suarez APRN Active GABAPENTIN 300 MG CAPS 1 three times a day GABAPE NTIN 42999764756 Active Baltazar Childers MD Active GABAPENTIN 300 MG CAPS 1 po qd x 2 days, then 1 po BID x 2 d ays, then 1 po TID GABAPENTIN 08031115392 No Longer Active Baltazar silverman MD Active TRAMADOL HCL 50 MG TABS 1 twice a day as needed for pain TRAMADOL HCL 35017891749 Active Baltazar Childers MD Active NAPROXEN 500 MG TABS 1 tablet by mouth twice daily NAPROXEN 34435844664 No Longer Active Baltazar Childers MD Active PROAIR HFA 108 (90 BASE) MCG/ACT AERS 2 puffs four times a d ay as needed ALBUTEROL SULFATE 75706784073 Active Baltazar Childers MD Active DEPO-TESTOSTERONE 200 MG/ML OIL as directed RUFINO TOSTERONE CYPIONATE 28175207506 No Longer Active Baltazar Childers MD Active LIPITOR 20 MG TABS Take one by mouth daily in evening ATORVASTATIN CALCIUM 81236301840 No Longer Active Baltazar Childers MD Activ e CRESTOR 10 MG TABS 1 by mouth every day R OSUVASTATIN CALCIUM 60038896191 No Longer Active Baltazar Childers MD Activ e PHENTERMINE HCL 37.5 MG TABS Take one by mouth daily 2 PHENTERMINE HCL 43422530869 No Longer Active Baltazar Childers MD Activ e ROBAXIN-750 750 MG TABS Take one by mouth daily ME THOCARBAMOL 32923636643 Active Baltazar Childers MD Active TIZANIDINE HCL 4 MG TABS 1 daily as needed for muscle spasm 2011 TIZANIDINE HCL 78584787704 No Longer Active Dawna Salazar RN Active FuturedermUCH ULTRA BLUE STRP Test twice a day GLUCO SE BLOOD 07414162088 Active Baltazar Childers MD Active [id number] 50-325-40 MG TABS 1 four time s a day as needed for heacache [id number] 67954397999 Active Baltazar Childers MD Active SUMATRIPTAN SUCCINATE 100 MG TABS 1 tablet by mouth at onset of migraine as needed SUMATRIPTAN SUCCINATE 83867007159 Active Baltazar barron MD Active LORATADINE 10 MG TABS Take one by mouth daily LORATADINE 81520615210 Active Baltazar Childers MD Active FUROSEMIDE 40 MG TABS Take one by mouth daily FUROSEMIDE 36960832554 Active Baltazar Childers MD Active LISINOPRIL 20 MG TABS Take one by mouth daily at bedtime LISINOPRIL 60794683753 Active Bella Suarez APRN Active OMEPRAZOLE 20 MG CPDR Take one by mouth daily OMEPRAZOLE 48778261326 Active Baltazar Childers MD Active HYDROXYZINE HCL 25 MG TABS Take one by mouth daily HYDROXYZINE HCL 11155910728 Active Baltazar Childers MD Active GLIPIZIDE 10 MG TABS 1 tablet by mouth twice daily GLIPIZIDE 20316135701 Active Bella Suarez APRN Active ALPRAZOLAM 1 MG TABS 1 tablet by mouth daily at bedtime for restles s leg ALPRAZOLAM 36914550586 Active Baltazar Childers MD Active METFORMIN HCL 1000 MG TABS Take one by mouth twice daily METFORMIN HCL 02252089169 Active Bella Suarez ACROBATIC RIGGER Active TIZANIDINE HCL 4 MG TABS 1 daily as needed for muscle spasm 2011 TIZANIDINE HCL 4 MG TABS 308361 TIZANIDINE HCL Inactiv e PHENTERMINE HCL 37.5 MG TABS Take one by mouth daily 2 PHENTERMINE HCL 37.5 MG TABS 621662 PHENTERMINE HCL Inactive CRESTOR 10 MG TABS 1 by mouth every day C RESTOR 10 MG TABS ROSUVASTATIN CALCIUM Inactive LIPITOR 20 MG TABS Take one by mouth daily in evening LIPITOR 20 MG TABS 187453 ATORVASTATIN CALCIUM Inactive DEPO-TESTOSTERONE 200 MG/ML OIL as directed 8 DEPO-TESTOSTERONE 200 MG/ML OIL 486559 TESTOSTERONE CYPIONATE Inactive NAPROXEN 500 MG TABS 1 tablet by mouth twice daily 201 07/27/22 NAPROXEN 500 MG TABS 011242 NAPROXEN Inactive GABAPENTIN 300 MG CAPS 1 po qd x 2 days, then 1 po BID x 2 d ays, then 1 po TID GABAPENTIN 300 MG CAPS 741561 GABAPENTIN Inact amie Immunizations Vaccine Administration Date Value Standard Floyd cription pneumococcal immunization administered Pneumovax 23 [CVX33] pneumococcal polysaccharide vaccine, 23 valent Seasonal influenza vaccine, injectable, containing preservative, for > 3 years old (Afluria, FluLaval, Fluzone, Fluvirin, Fluarix, Agriflu(>= 18 yo)) Fluzone (>3 yrs.) [[id number]] Influenza, seasonal, inject able Seasonal influenza vaccine, injectable, containing preservative, for > 3 years old (Afluria, FluLaval, Fluzone, Fluvirin, Fluarix, Agriflu(>= 18 yo)) Fluzone (>3 yrs.) [[id number]] Influenza, seasonal, inject able Vital Signs Date [...] Panel - Chemistry sodium, serum 139 mmol/L 906-716 5545/01/20 potassium, serum 5.3 mmol/L 3.5-5.2 chloride, serum [...] mg/g mg/g{creat} 0-29 cholesterol, serum 319 mg/dL 619-946 0881/08/21 triglyceride, serum, fasting 546 mg/dL 30-200 HDL cholesterol, serum 39 mg/dL 32-96 LDL cholesterol, serum 167.00 mg/dL 5.00-130.00 hemoglobin A1C, blood, as % of total hemoglobin 7.7 % 4.3-6.0 sodium, serum 138 mmol/L 803-619 5424/08/21 potassium, serum 4.3 mmol/L 3.5-5.2 chloride, serum [...] 0-19 Encounters Code Encounter Date Provider Facility CPT-64598 Level 4 Est. Patient 14:15:19 CDT Baltazar Childers MD [facility] CPT-12732 Level 4 Est. Patient 12:20:13 CDT Baltazar Childers MD [facility] CPT-99678 Level 4 Est. Patient 14:52:45 ELECTRICAL CONSTRUCTION PROJECT MANAGER Baltazar Childers MD [facility] CPT-15518 Level 4 Est. Patient 14:18:34 ELECTRICAL CONSTRUCTION PROJECT MANAGER Baltazar Childers MD [facility] CPT-53815 Level 4 Est. Patient 15:18:29 CDT Baltazar Childers MD [facility] CPT-74631 Level 3 Est. Patient 12:45:34 CDT Baltazar Childers MD [facility] CPT-63729 Level 3 Est. Patient 10:10:11 CDT Baltazar Childers MD [facility] CPT-28926 Level 3 Est. Patient 14:07:50 CDT Baltazar Childers MD [facility] CPT-89333 Level 4 Est. Patient 12:26:10 ELECTRICAL CONSTRUCTION PROJECT MANAGER Baltazar Childers MD [facility] CPT-10213 Level 4 Est. Patient 14:45:38 CDT Baltazar Childers MD [facility] CPT-43512 Level 4 New Patient 12:30:48 CDT Baltazar hinton MD [facility] Procedures Code Procedure Name Date Entry Date Standard Desc ription CPT-33804 Venipuncture Draw Fee 12:10:27 ELECTRICAL CONSTRUCTION PROJECT MANAGER CPT-59597 Fluzone Quadrivalent Intramuscular Suspe nsion 0.5 ML 10:49:13 CDT CPT-83686 First Vx Component - Ix admi n via ID IM or jet inj without physician counseling 15:17:19 ELECTRICAL CONSTRUCTION PROJECT MANAGER CPT-43267 Pneumovax 23 15:17:19 ELECTRICAL CONSTRUCTION PROJECT MANAGER CPT-39638 Pneumovax 14:52:45 ELECTRICAL CONSTRUCTION PROJECT MANAGER CPT-15762 Venipuncture Draw Fee 14:06:30 ELECTRICAL CONSTRUCTION PROJECT MANAGER CPT-000 Give Appropriate Flu Vaccine 14:18:34 ELECTRICAL CONSTRUCTION PROJECT MANAGER 2 CPT-79918 Administration single or combination vac cine inc oral 14:46:00 ELECTRICAL CONSTRUCTION PROJECT MANAGER CPT-16053 Influenza split virus > age 3 14:46:00 ELECTRICAL CONSTRUCTION PROJECT MANAGER CPT-OV Office Visit 19:13:16 CDT CPT-54542 Zostavax 18:41:56 CDT CPT-00301 Administration single or combination vac cine inc oral 12:56:39 CDT CPT-38040 Zoster Vaccine (Zostavax) 12:56:39 CDT 2012 CPT-92782 Venipuncture Draw Fee 10:58:57 CDT CPT-60779 Sono pelvis non OB uterus ovaries cervix 17:45:04 CDT CPT-05423 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
--- OUTSIDE RECORDS SUMMARY | 2019-10-27 12:38 | XMS REPORT | Clinical Summary ---
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 Benign neoplasm of colon PERIPHERAL NEUROPATHY [...] ronary atherosclerosis of unspecified type of vessel, [place] or graft OTH NONSPC ABN FINDNG RAD&OTH [...] day to coat the stomach 2015 SUCRALFATE [id number] No Longer Active Baltazar Childers MD Active PEN NEEDLES 31G X 6 MM MISC use 1 daily INSULIN PEN NEEDLE 62836529286 Active Bella Suarez TANK BUILDER HELPER Active TOUJEO SOLOSTAR 300 UNIT/ML SC SOPN 10 units SC daily INSULIN GLARGINE 85166746483 No Longer Active Martita Godinez RMA Active LANTUS SOLOSTAR 100 UNIT/ML SC SOPN 10 units SC daily INSULIN GLARGINE 47383261515 Active Baltazar Childers MD Active NAPROXEN SODIUM 220 MG ORAL TABS 1 three times a day as needed 2 NAPROXEN SODIUM 18577954650 No Longer Active aBltazar Childers MD Active ATORVASTATIN CALCIUM 20 MG ORAL TABS Take 1 tab daily ATORVASTATIN CALCIUM 59657189743 Active Baltazar Childers MD Active FUROSEMIDE 40 MG TABS Take one by mouth daily FUROSEMIDE 82574277168 Active Baltazar Childers MD Active LISINOPRIL 20 MG TABS Take one by mouth daily at bedtime LISINOPRIL 35637499823 Active KENDALL Juarez Active ONETOUCH ULTRA BLUE STRP Test twice a day GLUCO SE BLOOD 47018849470 No Longer Active Baltazar Childers MD Active TRUEPLUS LANCETS 33G MISC Test twice a day LANCET S 08726238544 Active KENDALL Juarez Active TRUEDRAW LANCING DEVICE MISC Test twice a day L ANCET DEVICES 32693544920 Active Baltazar Childers MD Active TRUETRACK TEST STRP Test twice a day GLUCOSE BLOO D 64252872491 Active KENDALL Juarez Active TRUETRACK BLOOD GLUCOSE W/DEVICE KIT Test twice a day BLOOD GLUCOSE MONITORING SUPPL 19534058284 Active Baltazar Childers MD Activ e HYDROCODONE-ACETAMINOPHEN 7.5-325 MG TABS Take 1 tab every 6-8 hour s PRN HYDROCODONE-ACETAMINOPHEN 80118667764 Active Baltazar Childers MD Active NORTRIPTYLINE HCL 50 MG CAPS 1 every night for neuropathy 4 NORTRIPTYLINE HCL 50126654718 Active Baltazar Childers MD Acti ve GABAPENTIN 300 MG CAPS 1 three times a day GABAPE NTIN 06580478421 Active Baltazar Childers MD Active GABAPENTIN 300 MG CAPS 1 po qd x 2 days, then 1 po BID x 2 d ays, then 1 po TID GABAPENTIN 13545273884 No Longer Active Baltazar silverman MD Active TRAMADOL HCL 50 MG TABS 1 twice a day as needed for pain TRAMADOL HCL 96006784920 Active Baltazar Childers MD Active NAPROXEN 500 MG TABS 1 tablet by mouth twice daily NAPROXEN 21597292290 No Longer Active Baltazar Childers MD Active PROAIR HFA 108 (90 BASE) MCG/ACT AERS 2 puffs four times a d ay as needed ALBUTEROL SULFATE 38384983466 Active KENDALL Juarez Active DEPO-TESTOSTERONE 200 MG/ML OIL as directed RUFINO TOSTERONE CYPIONATE 98244399442 No Longer Active Baltazar Childers MD Active LIPITOR 20 MG TABS Take one by mouth daily in evening ATORVASTATIN CALCIUM 81482134799 No Longer Active Baltazar Childers MD Activ e CRESTOR 10 MG TABS 1 by mouth every day R OSUVASTATIN CALCIUM 22950820695 No Longer Active Baltazar Childers MD Activ e PHENTERMINE HCL 37.5 MG TABS Take one by mouth daily 2 PHENTERMINE HCL 02207334120 No Longer Active Baltazar Childers MD Activ e ROBAXIN-750 750 MG TABS Take one by mouth daily ME THOCARBAMOL 53082186432 Active Baltazar Childers MD Active TIZANIDINE HCL 4 MG TABS 1 daily as needed for muscle spasm 2011 TIZANIDINE HCL 19920487735 No Longer Active Dawna Salazar RN Active [id number] 50-325-40 MG TABS 1 four time s a day as needed for heacache [id number] 81110896508 Active Baltazar Childers MD Active SUMATRIPTAN SUCCINATE 100 MG TABS 1 tablet by mouth at onset of migraine as needed SUMATRIPTAN SUCCINATE 36657103892 Active Baltazar bynum MD Active LORATADINE 10 MG TABS Take one by mouth daily LORATADINE 57280071553 Active Baltazar Childers MD Active OMEPRAZOLE 20 MG CPDR Take one by mouth daily OMEPRAZOLE 13302475042 Active KENDALL Juarez Active HYDROXYZINE HCL 25 MG TABS Take one by mouth daily HYDROXYZINE HCL 09140121342 Active Baltazar Childers MD Active GLIPIZIDE 10 MG TABS 1 tablet by mouth twice daily GLIPIZIDE 61193207102 Active Baltazar Childers MD Active ALPRAZOLAM 1 MG TABS 1 tablet by mouth daily at bedtime for restles s leg ALPRAZOLAM 45152079746 Active Baltazar Childers MD Active METFORMIN HCL 1000 MG TABS Take one by mouth twice daily METFORMIN HCL 12421418052 Active Baltazar Childers MD Active TIZANIDINE HCL 4 MG TABS 1 daily as needed for muscle spasm 2011 TIZANIDINE HCL 4 MG TABS 930637 TIZANIDINE HCL Inactiv e PHENTERMINE HCL 37.5 MG TABS Take one by mouth daily 2 PHENTERMINE HCL 37.5 MG TABS 011412 PHENTERMINE HCL Inactive CRESTOR 10 MG TABS 1 by mouth every day C RESTOR 10 MG TABS 017172 ROSUVASTATIN CALCIUM Inactive LIPITOR 20 MG TABS Take one by mouth daily in evening LIPITOR 20 MG TABS 318231 ATORVASTATIN CALCIUM Inactive DEPO-TESTOSTERONE 200 MG/ML OIL as directed 8 DEPO-TESTOSTERONE 200 MG/ML OIL 774951 TESTOSTERONE CYPIONATE Inactive NAPROXEN 500 MG TABS 1 tablet by mouth twice daily 201 07/27/22 NAPROXEN 500 MG TABS 956754 NAPROXEN Inactive GABAPENTIN 300 MG CAPS 1 po qd x 2 days, then 1 po BID x 2 d ays, then 1 po TID GABAPENTIN 300 MG CAPS 229247 GABAPENTIN Inact amie ONETOUCH ULTRA BLUE STRP Test twice a day ONETOUCH ULTRA BLUE STRP GLUCOSE BLOOD Inactive NAPROXEN SODIUM 220 MG ORAL TABS 1 three times a day as needed 2 NAPROXEN SODIUM 220 MG ORAL TABS 641095 NAPROXEN SODIUM Inactive TOUJEO SOLOSTAR 300 UNIT/ML SC SOPN 10 units SC daily TOUJEO SOLOSTAR 300 UNIT/ML SC SOPN INSULIN GLARGINE Inac tive SUCRALFATE 1 GM TABS 1 four times a day to coat the stomach 2015 SUCRALFATE 1 GM TABS 448517 SUCRALFATE Inactive Immunizations Vaccine Administration Date Value Standard Floyd cription pneumococcal immunization administered Pneumovax 23 [CVX33] pneumococcal polysaccharide vaccine, 23 valent Seasonal influenza vaccine, injectable, containing preservative, for > 3 years old (Afluria, FluLaval, Fluzone, Fluvirin, Fluarix, Agriflu(>= 18 yo)) Fluzone (>3 yrs.) [XLL602] Influenza, seasonal, inject able Seasonal influenza vaccine, injectable, containing preservative, for > 3 years old (Afluria, FluLaval, Fluzone, Fluvirin, Fluarix, Agriflu(>= 18 yo)) Fluzone (>3 yrs.) [WSD297] Influenza, seasonal, inject able Vital Signs Date [...] C - Chemistry sodium, serum 139 mmol/L 016-645 6717/07/07 potassium, serum 4.5 mmol/L 3.5-5.2 chloride, serum [...] 7.9 % 4.3-6.0 sodium, serum 139 mmol/L 295-407 7800/02/04 potassium, serum 5.4 mmol/L 3.5-5.2 chloride, serum [...] Panel - Chemistry sodium, serum 143 mmol/L 158-080 7195/12/19 carbon dioxide, venous blood 32.5 mmol/L 21.0-32 .0 potassium, serum 4.9 mmol/L 3.5-5.2 chloride, serum 101 mmol/L 98-107 blood glucose 129 mg/dL 65-110 urea nitrogen, blood 18 mg/dL 7-18 creatinine, serum 1.79 mg/dL 0.55-1.30 alanine aminotransferase (SGPT), serum 34 U/L 12-78 aspartate aminotransferase (SGOT), serum 26 U/L 15-37 calcium, serum 8.9 mg/dL 8.5-10.1 bilirubin, serum, total 0.30 mg/dL 0.00-1.00 cholesterol, serum 214 mg/dL 409-709 1851/12/19 triglyceride, serum, fasting 351 mg/dL 30-200 HDL cholesterol, serum 52 mg/dL 32-96 LDL cholesterol, serum 92 mg/dL 0-130 Lab Report: HGBA1C - Chemistry hemoglobin A1C, blood, as % of total hemoglobin 7.3 % 4.3-6.0 Lab Report: Renal Panel - Chemistry sodium, serum 141 mmol/L 568-699 3319/08/08 potassium, serum 4.9 mmol/L 3.5-5.2 chloride, serum 101 mmol/L 98-107 carbon dioxide, venous blood 34.1 mmol/L 21.0-32 .0 creatinine, serum 1.98 mg/dL 0.55-1.30 blood glucose 193 mg/dL 65-110 urea nitrogen, blood 30 mg/dL 7-18 calcium, serum 9.8 mg/dL 8.5-10.1 Encounters Code Encounter Date Provider Facility CPT-65025 Level 4 Est. Patient 11:34:17 CDT Baltazar Childers MD [facility]-92292 Level 3 Est. Patient 16:40:40 CDT Baltazar Childers MD [facility]-21146 Level 4 Est. Patient 10:41:24 CDT Baltazar Childers MD [facility]-81002 Level 4 Est. Patient 16:01:48 CDT Baltazar Childers MD [facility]-26179 Level 4 Est. Patient 16:54:07 REAL ESTATE BROKER ASSOCIATE Baltazar Childers MD [facility]-34648 Level 4 Est. Patient 15:42:12 CDT Baltazar Childers MD [facility] CPT-48219 Level 4 Est. Patient 11:29:55 CDT Baltazar Childers MD [facility] CPT-78836 Level 4 Est. Patient 14:15:19 CDT Baltazar Childers MD [facility] CPT-16995 Level 4 Est. Patient 12:20:13 CDT Baltazar Childers MD [facility] CPT-89133 Level 4 Est. Patient 14:52:45 REAL ESTATE BROKER ASSOCIATE Baltazar Childers MD [facility] CPT-80650 Level 4 Est. Patient 14:18:34 REAL ESTATE BROKER ASSOCIATE Baltazar Childers MD [facility]-03005 Level 4 Est. Patient 15:18:29 CDT Baltazar Childers MD [facility] CPT-98433 Level 3 Est. Patient 12:45:34 CDT Baltazar Childers MD [facility] CPT-96964 Level 3 Est. Patient 10:10:11 CDT Baltazar Childers MD [facility] CPT-96038 Level 3 Est. Patient 14:07:50 CDT Baltazar Childers MD [facility] CPT-60163 Level 4 Est. Patient 12:26:10 REAL ESTATE BROKER ASSOCIATE Baltazar Childers MD [facility] CPT-33552 Level 4 Est. Patient 14:45:38 CDT Baltazar Childers MD [facility] CPT-54914 Level 4 New Patient 12:30:48 CDT Baltazar hinton MD [facility] Procedures Code Procedure Name Date Entry Date Standard Desc ription CPT-07370 Lipid - LAB USE ONLY 17:39:15 REAL ESTATE BROKER ASSOCIATE 9 CPT-73045 HGBA1C - LAB USE ONLY 17:39:15 REAL ESTATE BROKER ASSOCIATE CPT-54754 CMP - LAB USE ONLY 17:39:14 REAL ESTATE BROKER ASSOCIATE CPT-61395 Venipuncture Draw Fee 17:39:14 REAL ESTATE BROKER ASSOCIATE CPT-34056 First Vx - Ix admin via ID I M or jet injects without counseling by physician 16:55:17 REAL ESTATE BROKER ASSOCIATE CPT-39665 Fluzone Quadrivalent Intramuscular Suspe nsion 0.5 ML 16:55:17 REAL ESTATE BROKER ASSOCIATE CPT-59299 Renal Panel - LAB USE ONLY 17:39:20 CDT 201 10/31/07 CPT-47359 CBC - LAB USE ONLY 17:39:20 CDT CPT-91472 Venipuncture Draw Fee 17:39:20 CDT CPT-65002 Venipuncture Draw Fee 14:33:30 CDT CPT-78867 Renal Panel - LAB USE ONLY 14:33:30 CDT 201 10/31/07 CPT-69612 CBC - LAB USE ONLY 14:33:29 CDT CPT-26083 Venipuncture Draw Fee 14:50:21 REAL ESTATE BROKER ASSOCIATE CPT-89732 Immunization Single Admin 17:35:35 CDT 2014 CPT-76135 Fluzone Quadrivalent preservative free ( >=3yrs.) 17:35:35 CDT CPT-01825 Venipuncture Draw Fee 12:10:27 REAL ESTATE BROKER ASSOCIATE CPT-25721 Fluzone Quadrivalent Intramuscular Suspe nsion 0.5 ML 10:49:13 CDT CPT-49487 First Vx Component - Ix admi n via ID IM or jet inj without physician counseling 15:17:19 REAL ESTATE BROKER ASSOCIATE CPT-69650 Pneumovax 23 15:17:19 REAL ESTATE BROKER ASSOCIATE CPT-39246 Pneumovax 14:52:45 REAL ESTATE BROKER ASSOCIATE CPT-48362 Venipuncture Draw Fee 14:06:30 REAL ESTATE BROKER ASSOCIATE CPT-000 Give Appropriate Flu Vaccine 14:18:34 REAL ESTATE BROKER ASSOCIATE 2 CPT-28555 Administration single or combination vac cine inc oral 14:46:00 REAL ESTATE BROKER ASSOCIATE CPT-80743 Influenza split virus > age 3 14:46:00 REAL ESTATE BROKER ASSOCIATE CPT-OV Office Visit 19:13:16 CDT CPT-03197 Zostavax 18:41:56 CDT CPT-60138 Administration single or combination vac cine inc oral 12:56:39 CDT CPT-43425 Zoster Vaccine (Zostavax) 12:56:39 CDT 2012 CPT-28387 Venipuncture Draw Fee 10:58:57 CDT CPT-97720 Sono pelvis non OB uterus ovaries cervix 17:45:04 CDT CPT-93422 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
--- OUTSIDE RECORDS SUMMARY | 2019-10-27 12:38 | XMS REPORT | Clinical Summary ---
Author Author Admin, Elab Lance Michelle [facility] Address Unknown Phone Unavailable Allergies, Adverse 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 [employer]N BRAND Benign neoplasm of colon PERIPHERAL NEUROPATHY 356.9 [...] a day as needed 2 NAPROXEN SODIUM 32829116701 No Longer Active Baltazar Childers MD Active ATORVASTATIN CALCIUM 20 MG ORAL TABS Take 1 tab daily ATORVASTATIN CALCIUM 10700048754 Active KENDALL Juarez Active FUROSEMIDE 40 MG TABS Take one by mouth daily FUROSEMIDE 24956978773 Active Baltazar Childers MD Active LISINOPRIL 20 MG TABS Take one by mouth daily at bedtime LISINOPRIL 08784589467 Active KENDALL Juarez Active ONETOUCH ULTRA BLUE STRP Test twice a day GLUCO SE BLOOD 06574335727 No Longer Active Baltazar Childers MD Active TRUEPLUS LANCETS 33G MISC Test twice a day LANCET S 33252816838 Active KENDALL Juarez Active TRUEDRAW LANCING DEVICE MISC Test twice a day L ANCET DEVICES 27412000697 Active Baltazar Childers MD Active TRUETRACK TEST STRP Test twice a day GLUCOSE BLOO D 15150622038 Active KENDALL Juarez Active TRUETRACK BLOOD GLUCOSE W/DEVICE KIT Test twice a day BLOOD GLUCOSE MONITORING SUPPL 90279735515 Active Baltazar Childers MD Activ e HYDROCODONE-ACETAMINOPHEN 7.5-325 MG TABS Take 1 tab every 6-8 hour s PRN HYDROCODONE-ACETAMINOPHEN 41680537963 Active Baltazar Childers MD Active NORTRIPTYLINE HCL 50 MG CAPS 1 every night for neuropathy 4 NORTRIPTYLINE HCL 41405549276 Active Baltazar Childers MD Acti ve GABAPENTIN 300 MG CAPS 1 three times a day GABAPE NTIN 95096537560 Active KENDALL Juarez Active GABAPENTIN 300 MG CAPS 1 po qd x 2 days, then 1 po BID x 2 d ays, then 1 po TID GABAPENTIN 30387681932 No Longer Active Baltazar silverman MD Active TRAMADOL HCL 50 MG TABS 1 twice a day as needed for pain TRAMADOL HCL 34312791687 Active Baltazar Childers MD Active NAPROXEN 500 MG TABS 1 tablet by mouth twice daily NAPROXEN 78785772951 No Longer Active Baltazar Childers MD Active PROAIR HFA 108 (90 BASE) MCG/ACT AERS 2 puffs four times a d ay as needed ALBUTEROL SULFATE 89452101942 Active KENDALL Juarez Active DEPO-TESTOSTERONE 200 MG/ML OIL as directed RUFINO TOSTERONE CYPIONATE 91135076961 No Longer Active Baltazar Childers MD Active LIPITOR 20 MG TABS Take one by mouth daily in evening ATORVASTATIN CALCIUM 45757553664 No Longer Active Baltazar Childers MD Activ e CRESTOR 10 MG TABS 1 by mouth every day R OSUVASTATIN CALCIUM 62754480656 No Longer Active Baltazar Childers MD Activ e PHENTERMINE HCL 37.5 MG TABS Take one by mouth daily 2 PHENTERMINE HCL 84645696023 No Longer Active Baltazar Childers MD Activ e ROBAXIN-750 750 MG TABS Take one by mouth daily ME THOCARBAMOL 13680860439 Active Baltazar Childers MD Active TIZANIDINE HCL 4 MG TABS 1 daily as needed for muscle spasm 2011 TIZANIDINE HCL 16598471700 No Longer Active Dawna Salazar RN Active [id number] 50-325-40 MG TABS 1 four time s a day as needed for heacache [id number] 20064375202 Active CÉSAR JuarezBetsey Active SUMATRIPTAN SUCCINATE 100 MG TABS 1 tablet by mouth at onset of migraine as needed SUMATRIPTAN SUCCINATE 23982236133 Active CÉSAR JuarezBetsey Active LORATADINE 10 MG TABS Take one by mouth daily LORATADINE 78040552047 Active Baltazar Childers MD Active OMEPRAZOLE 20 MG CPDR Take one by mouth daily OMEPRAZOLE 93499553586 Active Argentnia Lyons Active HYDROXYZINE HCL 25 MG TABS Take one by mouth daily HYDROXYZINE HCL 85487711109 Active Baltazar Childers MD Active GLIPIZIDE 10 MG TABS 1 tablet by mouth twice daily GLIPIZIDE 98698583213 Active KENDALL Juarez Active ALPRAZOLAM 1 MG TABS 1 tablet by mouth daily at bedtime for restles s leg ALPRAZOLAM 87868751231 Active Baltazar Childers MD Active METFORMIN HCL 1000 MG TABS Take one by mouth twice daily METFORMIN HCL 37127956741 Active Baltazar Childers MD Active TIZANIDINE HCL 4 MG TABS 1 daily as needed for muscle spasm 2011 TIZANIDINE HCL 4 MG TABS 097501 TIZANIDINE HCL Inactiv e PHENTERMINE HCL 37.5 MG TABS Take one by mouth daily 2 PHENTERMINE HCL 37.5 MG TABS 775652 PHENTERMINE HCL Inactive CRESTOR 10 MG TABS 1 by mouth every day C RESTOR 10 MG TABS 472364 ROSUVASTATIN CALCIUM Inactive LIPITOR 20 MG TABS Take one by mouth daily in evening LIPITOR 20 MG TABS 544921 ATORVASTATIN CALCIUM Inactive DEPO-TESTOSTERONE 200 MG/ML OIL as directed 8 DEPO-TESTOSTERONE 200 MG/ML OIL 492964 TESTOSTERONE CYPIONATE Inactive NAPROXEN 500 MG TABS 1 tablet by mouth twice daily 201 07/27/22 NAPROXEN 500 MG TABS 545576 NAPROXEN Inactive GABAPENTIN 300 MG CAPS 1 po qd x 2 days, then 1 po BID x 2 d ays, then 1 po TID GABAPENTIN 300 MG CAPS 263491 GABAPENTIN Inact amie ONETOUCH ULTRA BLUE STRP Test twice a day ONETOUCH ULTRA BLUE STRP GLUCOSE BLOOD Inactive NAPROXEN SODIUM 220 MG ORAL TABS 1 three times a day as needed 2 NAPROXEN SODIUM 220 MG ORAL TABS 028775 NAPROXEN SODIUM Inactive Immunizations Vaccine Administration Date Value Standard Floyd cription pneumococcal immunization administered Pneumovax 23 [CVX33] pneumococcal polysaccharide vaccine, 23 valent Seasonal influenza vaccine, injectable, containing preservative, for > 3 years old (Afluria, FluLaval, Fluzone, Fluvirin, Fluarix, Agriflu(>= 18 yo)) Fluzone (>3 yrs.) [YVQ044] Influenza, seasonal, inject able Seasonal influenza vaccine, injectable, containing preservative, for > 3 years old (Afluria, FluLaval, Fluzone, Fluvirin, Fluarix, Agriflu(>= 18 yo)) Fluzone (>3 yrs.) [WPX758] Influenza, seasonal, inject able Vital Signs Date [...] 7.9 % 4.3-6.0 sodium, serum 139 mmol/L 463-726 9099/02/04 potassium, serum 5.4 mmol/L 3.5-5.2 chloride, serum [...] 0.40 mg/dL 0.00-1.00 cholesterol, serum 405 mg/dL 281-998 1549/11/23 triglyceride, serum, fasting 709 mg/dL 30-200 HDL [...] mg/dL Encounters Code Encounter Date Provider Facility CPT-76935 Level 4 Est. Patient 16:01:48 CDT Baltazar [facility] CPT-28673 Level 4 Est. Patient 16:54:07 GAS [employer]UR[employer] POWERPLANT MECHANIC Baltazar Childers MD [facility] CPT-46676 Level 4 Est. Patient 15:42:12 CDT Baltazar Childers MD [facility] CPT-77503 Level 4 Est. Patient 11:29:55 CDT Baltazar Childers MD [facility] CPT-30420 Level 4 Est. Patient 14:15:19 CDT Baltazar Childers MD [facility] CPT-33450 Level 4 Est. Patient 12:20:13 CDT Baltazar Childers MD [facility] CPT-71091 Level 4 Est. Patient 14:52:45 [employer] POWERPLANT MECHANIC Baltazar Childers MD [facility] CPT-40824 Level 4 Est. Patient 14:18:34 G[employer] POWERPLANT MECHANIC Baltazar Childers MD [facility] CPT-58363 Level 4 Est. Patient 15:18:29 CDT Baltazar Childers MD [facility] CPT-04600 Level 3 Est. Patient 12:45:34 CDT Baltazar Childers MD [facility] CPT-96612 Level 3 Est. Patient 10:10:11 CDT Baltazar Childers MD [facility] CPT-65965 Level 3 Est. Patient 14:07:50 CDT Baltazar Childers MD [facility] CPT-69509 Level 4 Est. Patient 12:26:10 [employer] POWERPLANT MECHANIC Baltazar Childers MD [facility] CPT-81092 Level 4 Est. Patient 14:45:38 CDT Baltazar Childers MD [facility] CPT-78965 Level 4 New Patient 12:30:48 CDT Baltazar hinton MD [facility] Procedures Code Procedure Name Date Entry Date Standard Desc ription CPT-51994 Venipuncture Draw Fee 14:50:21 [employer]PLANT MECHANIC CPT-81999 Immunization Single Admin 17:35:35 CDT 2014 CPT-27013 Fluzone Quadrivalent preservative free ( >=3yrs.) 17:35:35 CDT CPT-34993 Venipuncture Draw Fee 12:10:27 [employer] POWERPLANT MECHANIC CPT-77864 Fluzone Quadrivalent Intramuscular Suspe nsion 0.5 ML 10:49:13 CDT CPT-49468 First Vx Component - Ix admi n via ID IM or jet inj without physician counseling 15:17:19 [employer] MECHANIC CPT-10038 Pneumovax 15:17:19 [employer] POWERPLANT MECHANIC CPT-72339 Pneumovax 14:52:45 [employer] POWERPLANT MECHANIC CPT-89832 Venipuncture Draw Fee 14:06:30 G[employer] POWERPLANT MECHANIC CPT-000 Give Appropriate Flu Vaccine 14:18:34 G[employer] POWERPLANT MECHANIC 2 CPT-80582 Administration single or combination vac cine inc oral 14:46:00 G[employer] POWERPLANT MECHANIC CPT-30022 Influenza split virus > age 3 14:46:00 [employer] POWERPLANT MECHANIC CPT-OV Office Visit 19:13:16 CDT CPT-83306 Zostavax 18:41:56 CDT CPT-01006 Administration single or combination vac cine inc oral 12:56:39 CDT CPT-26142 Zoster Vaccine (Zostavax) 12:56:39 CDT 2012 CPT-76838 Venipuncture Draw Fee 10:58:57 CDT CPT-59602 Sono pelvis non OB uterus ovaries cervix 17:45:04 CDT CPT-54845 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
--- OUTSIDE RECORDS SUMMARY | 2019-10-27 12:38 | XMS REPORT | Clinical Summary ---
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 of colon PERIPHERAL NEUROPATHY 356.9 [...] ronary atherosclerosis of unspecified type of vessel, [place] or graft OTH NONSPC ABN FINDNG RAD&OTH [...] three times a day 201 12/03/26 GABAPENTIN 71406800562 No Longer Active Baltazar Childers MD Activ e LISINOPRIL 20 MG ORAL TABLET 1 tablet by mouth daily at night 2016 LISINOPRIL 77510989476 Active Baltazar Childers MD Active ZITHROMAX Z-ISAIAS 250 MG ORAL TABLET Take two tablets to day and then 1 tablet daily for 4 days AZITHROMYCIN 70635242725 No Longer A ctive Baltazar Childers MD Active LANTUS SOLOSTAR 100 UNIT/ML SUBCUTANEOUS SOLUTION PEN- INJECTOR 30 units SC daily INSULIN GLARGINE 58788878263 Active Baltazar Childers MD Active AMLODIPINE BESYLATE 5 MG ORAL TABLET 1 tab daily for HTN AMLODIPINE BESYLATE 22183070052 Active Baltazar Childers MD Active SYNTHROID 100 MCG ORAL TABLET 1 tablet by mouth daily LEVOTHYROXINE SODIUM 97649234310 Active Baltazar Childers MD Active GLIPIZIDE 10 MG ORAL TABLET take 2 tablets twice daily GLIPIZIDE 87128742210 Active Baltazar Childers MD Active SUCRALFATE 1 GM ORAL TABLET 1 four times a day to coat the stoma ch SUCRALFATE 32074304700 No Longer Active Baltazar Childers MD Active PEN NEEDLES 31G X 6 MM use 1 daily INSULIN PEN NE EDLE 13119062129 Active KENDALL Juarez Active CELINA POWERSOSTNAKITA 300 UNIT/ML SUBCUTANEOUS SOLUTION PEN- INJECTOR 10 units SC daily INSULIN GLARGINE 06576727150 No Longer Active Rola Godinez RMA Active NAPROXEN SODIUM 220 MG ORAL TABLET 1 three times a day as needed NAPROXEN SODIUM 01487113055 No Longer Active Baltazar Childers MD Active ATORVASTATIN CALCIUM 20 MG ORAL TABLET Take 1 tab daily ATORVASTATIN CALCIUM 53501339523 Active Baltazar Childers MD A ctive FUROSEMIDE 40 MG ORAL TABLET Take one by mouth daily FUROSEMIDE 81827928750 Active Baltazar Childers MD Active LISINOPRIL 20 MG ORAL TABLET Take one by mouth daily at bedtime LISINOPRIL 69654816449 No Longer Active Baltazar Childers MD Active ONETOUCH ULTRA BLUE IN VITRO STRIP Test twice a day 07/11/11 GLUCOSE BLOOD 89076801519 No Longer Active Baltazar Childers MD Acti ve TRUEPLUS LANCETS 33G Test twice a day LANCETS 8868292 1754 Active KENDALL Juarez Active TRUEDRAW LANCING DEVICE Test twice a day LANCET DEVICES 00830662641 Active Baltazar Childers MD Active TRUETRACK TEST IN VITRO STRIP Test twice a day GLUCOSE BLOOD 72254895436 Active KENDALL Juarez Active TRUETRACK BLOOD GLUCOSE w/Device KIT Test twice a day BLOOD GLUCOSE MONITORING SUPPL 60434407746 Active Baltazar Childers MD Activ e HYDROCODONE-ACETAMINOPHEN 7.5-325 MG ORAL TABLET Take 1 tab every 6-8 hours PRN HYDROCODONE-ACETAMINOPHEN 48211691554 Active Baltazar Nickerson MD Active NORTRIPTYLINE HCL 50 MG ORAL CAPSULE 1 every night for neuropathy 2 NORTRIPTYLINE HCL 03055509347 Active Baltazar Childers MD Acti ve GABAPENTIN 300 MG ORAL CAPSULE 1 po qd x 2 days, then 1 po BID x 2 days, then 1 po TID GABAPENTIN 77580797287 No Longer Active Baltazar Childers MD Active TRAMADOL HCL 50 MG ORAL TABLET 1 twice a day as needed for pain 201 07/27/28 TRAMADOL HCL 53607484346 Active Baltazar Childers MD Active NAPROXEN 500 MG ORAL TABLET 1 tablet by mouth twice daily NAPROXEN 84247650826 No Longer Active Baltazar Childers MD Active PROAIR HFA 108 (90 Base) MCG/ACT INHALATION AEROSOL SO LUTION 2 puffs four times a day as needed ALBUTEROL SULFATE 65621498331 Active KENDALL Bowie Active DEPO-TESTOSTERONE 200 MG/ML INTRAMUSCULAR SOLUTION as directed TESTOSTERONE CYPIONATE 67013066242 No Longer Active Baltazar Childers MD Active LIPITOR 20 MG ORAL TABLET Take one by mouth daily in evening ATORVASTATIN CALCIUM 63362750266 No Longer Active Baltazar Childers MD Active CRESTOR 10 MG ORAL TABLET 1 by mouth every day ROSUVASTATIN CALCIUM 03045031567 No Longer Active Baltazar Childers MD Active PHENTERMINE HCL 37.5 MG ORAL TABLET Take one by mouth daily PHENTERMINE HCL 59645607519 No Longer Active Baltazar Childers MD Ac tive ROBAXIN-750 750 MG ORAL TABLET Take one by mouth daily METHOCARBAMOL 44470491213 Active KENDALL Juarez Active TIZANIDINE HCL 4 MG ORAL TABLET 1 daily as needed for muscle spa sm TIZANIDINE HCL 51587034122 No Longer Active Dawna Salazar RN Active [id number] 50-325-40 MG ORAL TABLET 1 fo ur times a day as needed for heacache [id number] 35315943579 Active Baltazar Childers MD Active SUMATRIPTAN SUCCINATE 100 MG ORAL TABLET 1 tablet by m outh at onset of migraine as needed SUMATRIPTAN SUCCINATE 92333566702 Active KENDALL Restrepo Active LORATADINE 10 MG ORAL TABLET Take one by mouth daily LORATADINE 37936705929 Active Baltazar Childers MD Active OMEPRAZOLE 20 MG ORAL CAPSULE DELAYED RELEASE Take one by mouth jostin ly OMEPRAZOLE 56737433014 Active Baltazar Childers MD Active HYDROXYZINE HCL 25 MG ORAL TABLET Take one by mouth daily HYDROXYZINE HCL 83208857449 Active Baltazar Childers MD Active ALPRAZOLAM 1 MG ORAL TABLET 1 tablet [facility] ALPRAZOLAM 34556887813 Active Baltazar Childers MD Active METFORMIN HCL 1000 MG ORAL TABLET Take one by mouth twice daily METFORMIN HCL 74013923463 Active Baltazar Childers MD Active TIZANIDINE HCL 4 MG ORAL TABLET 1 daily as needed for muscle spa sm TIZANIDINE HCL 4 MG ORAL TABLET 753122 TIZANIDINE HCL Inactive PHENTERMINE HCL 37.5 MG ORAL TABLET Take one by mouth daily PHENTERMINE HCL 37.5 MG ORAL TABLET 068260 PHENTERMINE HCL Inac tive CRESTOR 10 MG ORAL TABLET 1 by mouth every day CRESTOR 10 MG ORAL TABLET 332584 ROSUVASTATIN CALCIUM Inactive LIPITOR 20 MG ORAL TABLET Take one by mouth daily in evening LIPITOR 20 MG ORAL TABLET 723110 ATORVASTATIN CALCIUM Inactive DEPO-TESTOSTERONE 200 MG/ML INTRAMUSCULAR SOLUTION as directed DEPO-TESTOSTERONE 200 MG/ML INTRAMUSCULAR SOLUTION 685870 RUFINO TOSTERONE CYPIONATE Inactive NAPROXEN 500 MG ORAL TABLET 1 tablet by mouth twice daily NAPROXEN 500 MG ORAL TABLET 378762 NAPROXEN Inactive GABAPENTIN 300 MG ORAL CAPSULE 1 po qd x 2 days, then 1 po BID x 2 days, then 1 po TID GABAPENTIN 300 MG ORAL CAPSULE 225985 GABAP ENTIN Inactive ONETOUCH ULTRA BLUE IN VITRO STRIP Test twice a day 07/11/11 ONETOUCH ULTRA BLUE IN VITRO STRIP GLUCOSE BLOOD Inact amie NAPROXEN SODIUM 220 MG ORAL TABLET 1 three times a day as needed NAPROXEN SODIUM 220 MG ORAL TABLET 756932 NAPROXEN SODI UM Inactive TOUJEO SOLOSTAR 300 UNIT/ML SUBCUTANEOUS SOLUTION PEN- INJECTOR 10 units SC daily TOUJEO SOLOSTAR 300 UNIT/ML SUBCUTANEOUS SOLUTION PEN-INJECTOR INSULIN GLARGINE Inactive SUCRALFATE 1 GM ORAL TABLET 1 four times a day to coat the stoma ch SUCRALFATE 1 GM ORAL TABLET 358437 SUCRALFATE Inac tive GABAPENTIN 300 MG ORAL CAPSULE 1 three times a day 201 12/03/26 GABAPENTIN 300 MG ORAL CAPSULE 911551 GABAPENTIN Inactive ZITHROMAX Z-ISAIAS 250 MG ORAL TABLET Take two tablets to day and then 1 tablet daily for 4 days ZITHROMAX Z-ISAIAS 250 MG ORAL TAB LET 083606 AZITHROMYCIN Inactive Immunizations Vaccine Administration Date Value Standard Floyd cription pneumococcal immunization administered Pneumovax 23 [CVX33] pneumococcal polysaccharide vaccine, 23 valent Seasonal influenza vaccine, injectable, containing preservative, for > 3 years old (Afluria, FluLaval, Fluzone, Fluvirin, Fluarix, Agriflu(>= 18 yo)) Fluzone (>3 yrs.) [HOX727] Influenza, seasonal, inject able Seasonal influenza vaccine, injectable, containing preservative, for > 3 years old (Afluria, FluLaval, Fluzone, Fluvirin, Fluarix, Agriflu(>= 18 yo)) Fluzone (>3 yrs.) [XNH360] Influenza, seasonal, inject able Vital Signs Date [...] - Chem istry sodium, serum 139 mmol/L 535-955 5259/10/03 potassium, serum 4.7 mmol/L 3.5-5.2 chloride, serum 98 mmol/L 98-107 carbon dioxide, venous blood 28.7 mmol/L 21.0-32 .0 blood glucose 218 mg/dL 65-110 calcium, serum 9.8 mg/dL 8.5-10.1 urea nitrogen, blood 19 mg/dL 7-18 creatinine, serum 1.68 mg/dL 0.60-1.30 Lab Report: Basic Metabolic Panel, HGBA1 C - Chemistry sodium, serum 143 mmol/L 049-898 7022/06/19 potassium, serum 5.9 mmol/L 3.5-5.2 chloride, serum 105 mmol/L 98-107 carbon dioxide, venous blood 30.2 mmol/L 21.0-32 .0 blood glucose 189 mg/dL 65-110 calcium, serum 9.7 mg/dL 8.5-10.1 urea nitrogen, blood 37 mg/dL 7-18 creatinine, serum 2.11 mg/dL 0.55-1.30 hemoglobin A1C, blood, as % of total hemoglobin 8.2 % 4.3-6.0 Lab Report: CBC, Renal Panel - Chemistry sodium, serum 142 mmol/L 326-936 7584/08/11 potassium, serum 4.8 mmol/L 3.5-5.2 chloride, serum [...] (L) - Chemistry cholesterol, serum 209 mg/dL 768-205 6757/12/27 triglyceride, serum, fasting 329 mg/dL 30-200 HDL cholesterol, serum 56 mg/dL 32-60 LDL cholesterol, serum 87 mg/dL 0-130 TSH 3.60 m[iU]/mL 0.36-3.74 Encounters Code Encounter Date Provider Facility CPT-48539 Level 4 Est. Patient 17:05:37 CDT Baltazar Childers MD [facility] CPT-44506 Level 4 Est. Patient 16:21:19 PROCESSING ARCHIVIST Baltazar Childers MD [facility] CPT-76617 Level 4 Est. Patient 12:25:11 CDT Baltazar Childers MD [facility] CPT-23955 Level 4 Est. Patient 14:22:31 CDT Baltazar Childers MD [facility]-30118 Level 4 Est. Patient 15:44:38 CDT Shonna Parker APRN [facility]-44575 Level 4 Est. Patient 11:34:17 CDT Baltazar Childers MD [facility]-42928 Level 3 Est. Patient 16:40:40 CDT Baltazar Childers MD [facility]-83782 Level 4 Est. Patient 10:41:24 CDT Baltazar Childers MD [facility]-83623 Level 4 Est. Patient 16:01:48 CDT Baltazar Childers MD [facility]-52129 Level 4 Est. Patient 16:54:07 PROCESSING ARCHIVIST Baltazar Childers MD [facility]-77789 Level 4 Est. Patient 15:42:12 CDT Baltazar Childers MD [facility] CPT-59661 Level 4 Est. Patient 11:29:55 CDT Baltazar Childers MD [facility] CPT-69994 Level 4 Est. Patient 14:15:19 CDT Baltazar Childers MD [facility]-31821 Level 4 Est. Patient 12:20:13 CDT Baltazar Childers MD [facility]-60702 Level 4 Est. Patient 14:52:45 PROCESSING ARCHIVIST Baltazar Childers MD [facility] CPT-66422 Level 4 Est. Patient 14:18:34 PROCESSING ARCHIVIST Baltazar Childers MD [facility]-10258 Level 4 Est. Patient 15:18:29 CDT Baltazar Childers MD [facility]-57055 Level 3 Est. Patient 12:45:34 CDT Baltazar Childers MD [facility]-92233 Level 3 Est. Patient 10:10:11 CDT Baltazar Childers MD [facility] CPT-70778 Level 3 Est. Patient 14:07:50 CDT Baltazar Childers MD [facility] CPT-67772 Level 4 Est. Patient 12:26:10 PROCESSING ARCHIVIST Baltazar Childers MD [facility] CPT-16027 Level 4 Est. Patient 14:45:38 CDT Baltazar Childers MD [facility] CPT-40152 Level 4 New Patient 12:30:48 CDT Baltazar hinton MD [facility] Procedures Code Procedure Name Date Entry Date Standard Desc ription CPT-000 Give Appropriate Flu Vaccine 12:25:14 CDT 2 CPT-07266 First Vx - Ix admin via ID I M or jet injects without counseling by physician 13:08:59 CDT CPT-62219 Fluzone Quadrivalent Intramuscular Suspe nsion 0.5 ML 13:08:59 CDT CPT-72981 Venipuncture Draw Fee 12:04:12 CDT CPT-87378 Lipid - LAB USE ONLY 17:39:15 PROCESSING ARCHIVIST 9 CPT-09599 HGBA1C - LAB USE ONLY 17:39:15 PROCESSING ARCHIVIST CPT-16489 CMP - LAB USE ONLY 17:39:14 PROCESSING ARCHIVIST CPT-42808 Venipuncture Draw Fee 17:39:14 PROCESSING ARCHIVIST CPT-19668 First Vx - Ix admin via ID I M or jet injects without counseling by physician 16:55:17 PROCESSING ARCHIVIST CPT-29376 Fluzone Quadrivalent Intramuscular Suspe nsion 0.5 ML 16:55:17 PROCESSING ARCHIVIST CPT-42287 Renal Panel - LAB USE ONLY 17:39:20 CDT 201 10/31/07 CPT-32221 CBC - LAB USE ONLY 17:39:20 CDT CPT-88831 Venipuncture Draw Fee 17:39:20 CDT CPT-60742 Venipuncture Draw Fee 14:33:30 CDT CPT-91406 Renal Panel - LAB USE ONLY 14:33:30 CDT 201 10/31/07 CPT-30095 CBC - LAB USE ONLY 14:33:29 CDT CPT-57367 Venipuncture Draw Fee 14:50:21 PROCESSING ARCHIVIST CPT-51142 Immunization Single Admin 17:35:35 CDT 2014 CPT-58830 Fluzone Quadrivalent preservative free ( >=3yrs.) 17:35:35 CDT CPT-34570 Venipuncture Draw Fee 12:10:27 PROCESSING ARCHIVIST CPT-38796 Fluzone Quadrivalent Intramuscular Suspe nsion 0.5 ML 10:49:13 CDT CPT-43345 First Vx Component - Ix admi n via ID IM or jet inj without physician counseling 15:17:19 PROCESSING ARCHIVIST CPT-37921 Pneumovax 23 15:17:19 PROCESSING ARCHIVIST CPT-30327 Pneumovax 14:52:45 PROCESSING ARCHIVIST CPT-84884 Venipuncture Draw Fee 14:06:30 PROCESSING ARCHIVIST CPT-000 Give Appropriate Flu Vaccine 14:18:34 PROCESSING ARCHIVIST 2 CPT-41718 Administration single or combination vac cine inc oral 14:46:00 PROCESSING ARCHIVIST CPT-40374 Influenza split virus > age 3 14:46:00 PROCESSING ARCHIVIST CPT-OV Office Visit 19:13:16 CDT CPT-23656 Zostavax 18:41:56 CDT CPT-92864 Administration single or combination vac cine inc oral 12:56:39 CDT CPT-95756 Zoster Vaccine (Zostavax) 12:56:39 CDT 2012 CPT-93045 Venipuncture Draw Fee 10:58:57 CDT CPT-57599 Sono pelvis non OB uterus ovaries cervix 17:45:04 CDT CPT-30300 Sono retroperitoneal complete kidneys an d bladder 17:14:36 CDT CPT-OV Office Visit 14:59:38 PROCESSING ARCHIVIST CPT-J1070 Depo Testosterone 100 mg 14:50:13 CDT 03/05 CPT-40993 Abx/Therapy Injection 14:50:13 CDT CPT-22656 Administration single or combination vac cine inc oral 14:34:43 CDT CPT-92289 Influenza split virus > age 3 14:34:43 CDT CPT-J1070 Depo Testosterone 100 mg 17:37:13 CDT 01/11 CPT-27170 Abx/Therapy Injection 17:37:13 CDT CPT-79571 Venipuncture Draw Fee 16:30:13 CDT CPT-75075 Venipuncture Draw Fee 16:29:43 CDT CPT-J1070 Depo Testosterone 100 mg 14:45:38 CDT 01/11
--- OUTSIDE RECORDS SUMMARY | 2019-10-27 12:39 | XMS REPORT | Clinical Summary ---
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 Benign neoplasm of colon PERIPHERAL NEUROPATHY [...] ronary atherosclerosis of unspecified type of vessel, [place] or graft OTH NONSPC ABN FINDNG RAD&OTH [...] a day as needed 2014 NAPROXEN SODIUM 33099024909 Active Baltazar Childers MD Active FUROSEMIDE 40 MG TABS Take one by mouth daily FUROSEMIDE 92349688739 Active Baltazar Childers MD Active LISINOPRIL 20 MG TABS Take one by mouth daily at bedtime LISINOPRIL 42959412573 Active Baltazar Childers MD Active ONETOUCH ULTRA BLUE STRP Test twice a day GLUCO SE BLOOD 83602609953 No Longer Active Baltazar Childers MD Active TRUEPLUS LANCETS 33G MISC Test twice a day LANCET S 23362527667 Active Baltazar Childers MD Active TRUEDRAW LANCING DEVICE MISC Test twice a day L ANCET DEVICES 42309077102 Active Baltazar Childers MD Active TRUETRACK TEST STRP Test twice a day GLUCOSE BLOO D 05265495700 Active Baltazar Childers MD Active TRUETRACK BLOOD GLUCOSE W/DEVICE KIT Test twice a day BLOOD GLUCOSE MONITORING SUPPL 61207687128 Active Baltazar Childers MD Activ e HYDROCODONE-ACETAMINOPHEN 7.5-325 MG TABS Take 1 tab every 6-8 hour s PRN HYDROCODONE-ACETAMINOPHEN 14976387670 Active Baltazar Childers MD Active NORTRIPTYLINE HCL 50 MG CAPS 1 every night for neuropathy 4 NORTRIPTYLINE HCL 58316636494 Active Baltazar Childers MD Acti ve GABAPENTIN 300 MG CAPS 1 three times a day GABAPE NTIN 22868261213 Active Kelly Iraheta LPN Active GABAPENTIN 300 MG CAPS 1 po qd x 2 days, then 1 po BID x 2 d ays, then 1 po TID GABAPENTIN 77926854315 No Longer Active Baltazar silverman MD Active TRAMADOL HCL 50 MG TABS 1 twice a day as needed for pain TRAMADOL HCL 18602897737 Active Baltazar Childers MD Active NAPROXEN 500 MG TABS 1 tablet by mouth twice daily NAPROXEN 97775056603 No Longer Active Baltazar Childers MD Active PROAIR HFA 108 (90 BASE) MCG/ACT AERS 2 puffs four times a d ay as needed ALBUTEROL SULFATE 58235605852 Active Baltazar Childers MD Active DEPO-TESTOSTERONE 200 MG/ML OIL as directed RUFINO TOSTERONE CYPIONATE 50858407469 No Longer Active Baltazar Childers MD Active LIPITOR 20 MG TABS Take one by mouth daily in evening ATORVASTATIN CALCIUM 81885298386 No Longer Active Baltazar Childers MD Activ e CRESTOR 10 MG TABS 1 by mouth every day R OSUVASTATIN CALCIUM 44986301226 No Longer Active Baltazar Childers MD Activ e PHENTERMINE HCL 37.5 MG TABS Take one by mouth daily 2 PHENTERMINE HCL 34794990699 No Longer Active Baltazar Childers MD Activ e ROBAXIN-750 750 MG TABS Take one by mouth daily ME THOCARBAMOL 26691418217 Active Baltazar Childers MD Active TIZANIDINE HCL 4 MG TABS 1 daily as needed for muscle spasm 2011 TIZANIDINE HCL 70179187977 No Longer Active Dawna Salazar RN Active [id number]-OMIY-[id number] 50-325-40 MG TABS 1 four time s a day as needed for heacache [id number] 54188606418 Active Baltazar Childers MD Active SUMATRIPTAN SUCCINATE 100 MG TABS 1 tablet by mouth at onset of migraine as needed SUMATRIPTAN SUCCINATE 17938846991 Active Baltazar bynum MD Active LORATADINE 10 MG TABS Take one by mouth daily LORATADINE 16003815134 Active Baltazar Childers MD Active OMEPRAZOLE 20 MG CPDR Take one by mouth daily OMEPRAZOLE 68836860774 Active Baltazar Childers MD Active HYDROXYZINE HCL 25 MG TABS Take one by mouth daily HYDROXYZINE HCL 10533849120 Active Dawna Lew Active GLIPIZIDE 10 MG TABS 1 tablet by mouth twice daily GLIPIZIDE 24922851577 Active Baltazar Childers MD Active ALPRAZOLAM 1 MG TABS 1 tablet by mouth daily at bedtime for restles s leg ALPRAZOLAM 12776253483 Active Baltazar Childers MD Active METFORMIN HCL 1000 MG TABS Take one by mouth twice daily METFORMIN HCL 99074348756 Active Baltazar Childers MD Active TIZANIDINE HCL 4 MG TABS 1 daily as needed for muscle spasm 2011 TIZANIDINE HCL 4 MG TABS 088033 TIZANIDINE HCL Inactiv e PHENTERMINE HCL 37.5 MG TABS Take one by mouth daily 2 PHENTERMINE HCL 37.5 MG TABS 566610 PHENTERMINE HCL Inactive CRESTOR 10 MG TABS 1 by mouth every day C RESTOR 10 MG TABS ROSUVASTATIN CALCIUM Inactive LIPITOR 20 MG TABS Take one by mouth daily in evening LIPITOR 20 MG TABS 893445 ATORVASTATIN CALCIUM Inactive DEPO-TESTOSTERONE 200 MG/ML OIL as directed 8 DEPO-TESTOSTERONE 200 MG/ML OIL 900595 TESTOSTERONE CYPIONATE Inactive NAPROXEN 500 MG TABS 1 tablet by mouth twice daily 201 07/27/22 NAPROXEN 500 MG TABS 617209 NAPROXEN Inactive GABAPENTIN 300 MG CAPS 1 po qd x 2 days, then 1 po BID x 2 d ays, then 1 po TID GABAPENTIN 300 MG CAPS 237960 GABAPENTIN Inact amie ONETOUCH ULTRA BLUE STRP Test twice a day ONETOUCH ULTRA BLUE STRP GLUCOSE BLOOD Inactive Immunizations Vaccine Administration Date Value Standard Floyd cription pneumococcal immunization administered Pneumovax 23 [CVX33] pneumococcal polysaccharide vaccine, 23 valent Seasonal influenza vaccine, injectable, containing preservative, for > 3 years old (Afluria, FluLaval, Fluzone, Fluvirin, Fluarix, Agriflu(>= 18 yo)) Fluzone (>3 yrs.) [BUE532] Influenza, seasonal, inject able Seasonal influenza vaccine, injectable, containing preservative, for > 3 years old (Afluria, FluLaval, Fluzone, Fluvirin, Fluarix, Agriflu(>= 18 yo)) Fluzone (>3 yrs.) [PNP222] Influenza, seasonal, inject able Vital Signs Date [...] - Chem istry sodium, serum 140 mmol/L 474-397 0172/05/05 potassium, serum 4.9 mmol/L 3.5-5.2 chloride, serum 99 mmol/L 98-107 carbon dioxide, venous blood 34.3 mmol/L 21.0-32 .0 blood glucose 132 mg/dL 65-110 calcium, serum 10.1 mg/dL 8.5-10.1 urea nitrogen, blood 23 mg/dL 7-18 creatinine, serum 2.00 mg/dL 0.60-1.30 Lab Report: CBC, Renal Panel - Chemistry sodium, serum 139 mmol/L 873-664 3259/01/20 potassium, serum 5.3 mmol/L 3.5-5.2 chloride, serum [...] 4.3-6.0 Encounters Code Encounter Date Provider Facility CPT-24753 Level 4 Est. Patient 15:42:12 CDT Baltazar Childers MD [facility] CPT-64814 Level 4 Est. Patient 11:29:55 CDT Baltazar Childers MD [facility] CPT-82730 Level 4 Est. Patient 14:15:19 CDT Baltazar Childers MD [facility] CPT-88869 Level 4 Est. Patient 12:20:13 CDT Baltazar Childers MD [facility] CPT-52964 Level 4 Est. Patient 14:52:45 INBOUND CALL CENTER AGENT Baltazar Childers MD [facility] CPT-56402 Level 4 Est. Patient 14:18:34 INBOUND CALL CENTER AGENT Baltazar Childers MD [facility] CPT-21227 Level 4 Est. Patient 15:18:29 CDT Baltazar Childers MD [facility] CPT-55729 Level 3 Est. Patient 12:45:34 CDT Baltazar Childers MD [facility] CPT-13685 Level 3 Est. Patient 10:10:11 CDT Baltazar Childers MD [facility] CPT-89714 Level 3 Est. Patient 14:07:50 CDT Baltazar Childers MD [facility] CPT-88246 Level 4 Est. Patient 12:26:10 INBOUND CALL CENTER AGENT Baltazar Childers MD [facility] CPT-42045 Level 4 Est. Patient 14:45:38 CDT Baltazar Chidlers MD [facility] CPT-68553 Level 4 New Patient 12:30:48 CDT Baltazar hinton MD [facility] Procedures Code Procedure Name Date Entry Date Standard Desc ription CPT-75995 Venipuncture Draw Fee 12:10:27 INBOUND CALL CENTER AGENT CPT-66074 Fluzone Quadrivalent Intramuscular Suspe nsion 0.5 ML 10:49:13 CDT CPT-58695 First Vx Component - Ix admi n via ID IM or jet inj without physician counseling 15:17:19 INBOUND CALL CENTER AGENT CPT-45910 Pneumovax 23 15:17:19 INBOUND CALL CENTER AGENT CPT-63270 Pneumovax 14:52:45 INBOUND CALL CENTER AGENT CPT-35738 Venipuncture Draw Fee 14:06:30 INBOUND CALL CENTER AGENT CPT-000 Give Appropriate Flu Vaccine 14:18:34 INBOUND CALL CENTER AGENT 2 CPT-25483 Administration single or combination vac cine inc oral 14:46:00 INBOUND CALL CENTER AGENT CPT-28255 Influenza split virus > age 3 14:46:00 INBOUND CALL CENTER AGENT CPT-OV Office Visit 19:13:16 CDT CPT-67460 Zostavax 18:41:56 CDT CPT-95248 Administration single or combination vac cine inc oral 12:56:39 CDT CPT-36914 Zoster Vaccine (Zostavax) 12:56:39 CDT 2012 CPT-62520 Venipuncture Draw Fee 10:58:57 CDT CPT-06697 Sono pelvis non OB uterus ovaries cervix 17:45:04 CDT CPT-69326 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
--- OUTSIDE RECORDS SUMMARY | 2019-10-27 12:39 | XMS REPORT | Clinical Summary ---
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 Benign neoplasm of colon PERIPHERAL NEUROPATHY 356.9 [...] ronary atherosclerosis of unspecified type of vessel, [place] or graft OTH NONSPC ABN FINDNG [...] a day as needed 2 NAPROXEN SODIUM 31218667064 No Longer Active Baltazar Childers MD Active ATORVASTATIN CALCIUM 20 MG ORAL TABS Take 1 tab daily ATORVASTATIN CALCIUM 93235625297 Active KENDALL Juarez Active FUROSEMIDE 40 MG TABS Take one by mouth daily FUROSEMIDE 39962182797 Active Baltazar Childers MD Active LISINOPRIL 20 MG TABS Take one by mouth daily at bedtime LISINOPRIL 14766737558 Active Baltazar Childers MD Active ONETOUCH ULTRA BLUE STRP Test twice a day GLUCO SE BLOOD 24221948462 No Longer Active Baltazar Childers MD Active TRUEPLUS LANCETS 33G MISC Test twice a day LANCET S 78529821208 Active KENDALL Juarez Active TRUEDRAW LANCING DEVICE MISC Test twice a day L ANCET DEVICES 93738558308 Active Baltazar Childers MD Active TRUETRACK TEST STRP Test twice a day GLUCOSE BLOO D 98345368431 Active KENDALL Juarez Active TRUETRACK BLOOD GLUCOSE W/DEVICE KIT Test twice a day BLOOD GLUCOSE MONITORING SUPPL 52870956425 Active Baltazar Childers MD Activ e HYDROCODONE-ACETAMINOPHEN 7.5-325 MG TABS Take 1 tab every 6-8 hour s PRN HYDROCODONE-ACETAMINOPHEN 41920752289 Active Baltazar Childers MD Active NORTRIPTYLINE HCL 50 MG CAPS 1 every night for neuropathy 4 NORTRIPTYLINE HCL 17438943148 Active Baltazar Chliders MD Acti ve GABAPENTIN 300 MG CAPS 1 three times a day GABAPE NTIN 75955386434 Active Baltazar Childers MD Active GABAPENTIN 300 MG CAPS 1 po qd x 2 days, then 1 po BID x 2 d ays, then 1 po TID GABAPENTIN 04608436658 No Longer Active Baltazar silverman MD Active TRAMADOL HCL 50 MG TABS 1 twice a day as needed for pain TRAMADOL HCL 13008133114 Active Baltazar Childers MD Active NAPROXEN 500 MG TABS 1 tablet by mouth twice daily NAPROXEN 88515622803 No Longer Active Baltazar Childers MD Active PROAIR HFA 108 (90 BASE) MCG/ACT AERS 2 puffs four times a d ay as needed ALBUTEROL SULFATE 25395419362 Active KENDALL Juarez Active DEPO-TESTOSTERONE 200 MG/ML OIL as directed RUFINO TOSTERONE CYPIONATE 20964916634 No Longer Active Baltazar Childers MD Active LIPITOR 20 MG TABS Take one by mouth daily in evening ATORVASTATIN CALCIUM 82706955253 No Longer Active Baltazar Childers MD Activ e CRESTOR 10 MG TABS 1 by mouth every day R OSUVASTATIN CALCIUM 26093573990 No Longer Active Baltazar Childers MD Activ e PHENTERMINE HCL 37.5 MG TABS Take one by mouth daily 2 PHENTERMINE HCL 24708630183 No Longer Active Baltazar Childers MD Activ e ROBAXIN-750 750 MG TABS Take one by mouth daily ME THOCARBAMOL 62625061506 Active Baltazar Childers MD Active TIZANIDINE HCL 4 MG TABS 1 daily as needed for muscle spasm 2011 TIZANIDINE HCL 97595450793 No Longer Active Dawna Salazar RN Active OOOBCRYWES-BKGN-[id number] 50-325-40 MG TABS 1 four time s a day as needed for heacache [id number] 00049588013 Active Baltazar Childers MD Active SUMATRIPTAN SUCCINATE 100 MG TABS 1 tablet by mouth at onset of migraine as needed SUMATRIPTAN SUCCINATE 17641260924 Active KENDALL Juarez Active LORATADINE 10 MG TABS Take one by mouth daily LORATADINE 06091804963 Active Baltazar Childers MD Active OMEPRAZOLE 20 MG CPDR Take one by mouth daily OMEPRAZOLE 26260656221 Active [place] Lyons Active HYDROXYZINE HCL 25 MG TABS Take one by mouth daily HYDROXYZINE HCL 27089351231 Active Baltazar Childers MD Active GLIPIZIDE 10 MG TABS 1 tablet by mouth twice daily GLIPIZIDE 17962723864 Active Baltazar Childers MD Active ALPRAZOLAM 1 MG TABS 1 tablet by mouth daily at bedtime for restles s leg ALPRAZOLAM 47992430503 Active Baltazar Childers MD Active METFORMIN HCL 1000 MG TABS Take one by mouth twice daily METFORMIN HCL 74569262198 Active Baltazar Childers MD Active TIZANIDINE HCL 4 MG TABS 1 daily as needed for muscle spasm 2011 TIZANIDINE HCL 4 MG TABS 771886 TIZANIDINE HCL Inactiv e PHENTERMINE HCL 37.5 MG TABS Take one by mouth daily 2 PHENTERMINE HCL 37.5 MG TABS 810689 PHENTERMINE HCL Inactive CRESTOR 10 MG TABS 1 by mouth every day C RESTOR 10 MG TABS 273144 ROSUVASTATIN CALCIUM Inactive LIPITOR 20 MG TABS Take one by mouth daily in evening LIPITOR 20 MG TABS 841750 ATORVASTATIN CALCIUM Inactive DEPO-TESTOSTERONE 200 MG/ML OIL as directed 8 DEPO-TESTOSTERONE 200 MG/ML OIL 632439 TESTOSTERONE CYPIONATE Inactive NAPROXEN 500 MG TABS 1 tablet by mouth twice daily 201 07/27/22 NAPROXEN 500 MG TABS 960760 NAPROXEN Inactive GABAPENTIN 300 MG CAPS 1 po qd x 2 days, then 1 po BID x 2 d ays, then 1 po TID GABAPENTIN 300 MG CAPS 227824 GABAPENTIN Inact amie ONETOUCH ULTRA BLUE STRP Test twice a day ONETOUCH ULTRA BLUE STRP GLUCOSE BLOOD Inactive NAPROXEN SODIUM 220 MG ORAL TABS 1 three times a day as needed 2 NAPROXEN SODIUM 220 MG ORAL TABS 069386 NAPROXEN SODIUM Inactive Immunizations Vaccine Administration Date Value Standard Floyd cription pneumococcal immunization administered Pneumovax 23 [CVX33] pneumococcal polysaccharide vaccine, 23 valent Seasonal influenza vaccine, injectable, containing preservative, for > 3 years old (Afluria, FluLaval, Fluzone, Fluvirin, Fluarix, Agriflu(>= 18 yo)) Fluzone (>3 yrs.) [[id number]] Influenza, seasonal, inject able Seasonal influenza vaccine, injectable, containing preservative, for > 3 years old (Afluria, FluLaval, Fluzone, Fluvirin, Fluarix, Agriflu(>= 18 yo)) Fluzone (>3 yrs.) [QCB245] Influenza, seasonal, inject able Vital Signs Date [...] C - Chemistry sodium, serum 139 mmol/L 003-331 7996/07/07 potassium, serum 4.5 mmol/L 3.5-5.2 chloride, serum [...] 7.9 % 4.3-6.0 sodium, serum 139 mmol/L 004-004 3725/02/04 potassium, serum 5.4 mmol/L 3.5-5.2 chloride, serum [...] Panel - Chemistry sodium, serum 138 mmol/L 629-017 9878/11/23 carbon dioxide, venous blood 32.4 mmol/L 21.0-32 .0 potassium, serum 5.7 mmol/L 3.5-5.2 chloride, serum 98 mmol/L 98-107 blood glucose 136 mg/dL 65-110 urea nitrogen, blood 18 mg/dL 7-18 creatinine, serum 1.71 mg/dL 0.55-1.30 alanine aminotransferase (SGPT), serum 71 U/L 12-78 aspartate aminotransferase (SGOT), serum 34 U/L 15-37 calcium, serum 9.4 mg/dL 8.5-10.1 bilirubin, serum, total 0.40 mg/dL 0.00-1.00 cholesterol, serum 405 mg/dL 443-162 0392/11/23 triglyceride, serum, fasting 709 mg/dL 30-200 HDL [...] mg/dL Encounters Code Encounter Date Provider Facility CPT-35136 Level 4 Est. Patient 10:41:24 CDT Baltazar Childers MD [facility] CPT-95969 Level 4 Est. Patient 16:01:48 CDT Baltazar Childers MD [facility] CPT-00148 Level 4 Est. Patient 16:54:07 SEISMIC INTERPRETER Baltazar Childers MD [facility] CPT-67049 Level 4 Est. Patient 15:42:12 CDT Baltazar Childers MD [facility] CPT-72906 Level 4 Est. Patient 11:29:55 CDT Baltazar Childers MD [facility] CPT-49758 Level 4 Est. Patient 14:15:19 CDT Baltazar Childers MD [facility] CPT-18910 Level 4 Est. Patient 12:20:13 CDT Baltazar Childers MD [facility] CPT-03814 Level 4 Est. Patient 14:52:45 SEISMIC INTERPRETER Baltazar Childers MD [facility] CPT-26477 Level 4 Est. Patient 14:18:34 SEISMIC INTERPRETER Baltazar Childers MD [facility] CPT-07652 Level 4 Est. Patient 15:18:29 CDT Baltazar Childers MD [facility] CPT-32047 Level 3 Est. Patient 12:45:34 CDT Baltazar Childers MD [facility] CPT-90377 Level 3 Est. Patient 10:10:11 CDT Baltazar Childers MD [facility] CPT-22715 Level 3 Est. Patient 14:07:50 CDT Baltazar Childers MD [facility] CPT-97990 Level 4 Est. Patient 12:26:10 SEISMIC INTERPRETER Baltazar hCilders MD [facility] CPT-08013 Level 4 Est. Patient 14:45:38 CDT Baltazar Childers MD [facility] CPT-96860 Level 4 New Patient 12:30:48 CDT Baltazar hinton MD [facility] Procedures Code Procedure Name Date Entry Date Standard Desc ription CPT-65899 Venipuncture Draw Fee 14:50:21 SEISMIC INTERPRETER CPT-31801 Immunization Single Admin 17:35:35 CDT 2014 CPT-37492 Fluzone Quadrivalent preservative free ( >=3yrs.) 17:35:35 CDT CPT-37552 Venipuncture Draw Fee 12:10:27 SEISMIC INTERPRETER CPT-09433 Fluzone Quadrivalent Intramuscular Suspe nsion 0.5 ML 10:49:13 CDT CPT-34881 First Vx Component - Ix admi n via ID IM or jet inj without physician counseling 15:17:19 SEISMIC INTERPRETER CPT-48523 Pneumovax 15:17:19 SEISMIC INTERPRETER CPT-55407 Pneumovax 14:52:45 SEISMIC INTERPRETER CPT-66342 Venipuncture Draw Fee 14:06:30 SEISMIC INTERPRETER CPT-000 Give Appropriate Flu Vaccine 14:18:34 SEISMIC INTERPRETER 2 CPT-27445 Administration single or combination vac cine inc oral 14:46:00 SEISMIC INTERPRETER CPT-39727 Influenza split virus > age 3 14:46:00 SEISMIC INTERPRETER CPT-OV Office Visit 19:13:16 CDT CPT-98796 Zostavax 18:41:56 CDT CPT-76714 Administration single or combination vac cine inc oral 12:56:39 CDT CPT-65756 Zoster Vaccine (Zostavax) 12:56:39 CDT 2012 CPT-86063 Venipuncture Draw Fee 10:58:57 CDT CPT-24237 Sono pelvis non OB uterus ovaries cervix 17:45:04 CDT CPT-34547 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
--- OUTSIDE RECORDS SUMMARY | 2019-10-27 12:39 | XMS REPORT | Clinical Summary ---
Author Author Admin, Elba Lance [facility] Address Unknown Phone Unavailable Allergies, 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 [employer] Benign neoplasm of colon PERIPHERAL NEUROPATHY [...] ronary atherosclerosis of unspecified type of vessel, [place] or graft OTH NONSPC ABN FINDNG RAD&OTH [...] a day to coat the stomach SUCRALFATE 05029193588 Active Baltazar Childers MD Active PEN NEEDLES 31G X 6 MM MISC use 1 daily INSULIN PEN NEEDLE 64160629246 Active Martita Herbert RMA Active TOUJEO SOLOSTAR 300 UNIT/ML SC SOPN 10 units SC daily INSULIN GLARGINE 13970095995 No Longer Active Martita Herbert RMA Active LANTUS SOLOSTAR 100 UNIT/ML SC SOPN 10 units SC daily INSULIN GLARGINE 81253294872 Active KENDALL Juarez Active NAPROXEN SODIUM 220 MG ORAL TABS 1 three times a day as needed 2 NAPROXEN SODIUM 41462591386 No Longer Active Baltazar Childers MD Active ATORVASTATIN CALCIUM 20 MG ORAL TABS Take 1 tab daily ATORVASTATIN CALCIUM 83423850839 Active Baltazar Childers MD Active FUROSEMIDE 40 MG TABS Take one by mouth daily FUROSEMIDE 37125573560 Active Baltazar Childers MD Active LISINOPRIL 20 MG TABS Take one by mouth daily at bedtime LISINOPRIL 93609250589 Active Baltazar Childers MD Active ONETOUCH ULTRA BLUE STRP Test twice a day GLUCO SE BLOOD 29945796384 No Longer Active Baltazar Childers MD Active TRUEPLUS LANCETS 33G MISC Test twice a day LANCET S 90469256661 Active KENDALL Juarez Active TRUEDRAW LANCING DEVICE MISC Test twice a day L ANCET DEVICES 52560679863 Active Baltazar Childers MD Active TRUETRACK TEST STRP Test twice a day GLUCOSE BLOO D 25893999831 Active KENDALL Juarez Active TRUETRACK BLOOD GLUCOSE W/DEVICE KIT Test twice a day BLOOD GLUCOSE MONITORING SUPPL 63401793700 Active Baltazar Childers MD Activ e HYDROCODONE-ACETAMINOPHEN 7.5-325 MG TABS Take 1 tab every 6-8 hour s PRN HYDROCODONE-ACETAMINOPHEN 71525150460 Active Baltazar Childers MD Active NORTRIPTYLINE HCL 50 MG CAPS 1 every night for neuropathy 4 NORTRIPTYLINE HCL 67907567511 Active Baltazar Childers MD Acti ve GABAPENTIN 300 MG CAPS 1 three times a day GABAPE NTIN 19655833063 Active Baltazar Childers MD Active GABAPENTIN 300 MG CAPS 1 po qd x 2 days, then 1 po BID x 2 d ays, then 1 po TID GABAPENTIN 40806525893 No Longer Active Baltazar silverman MD Active TRAMADOL HCL 50 MG TABS 1 twice a day as needed for pain TRAMADOL HCL 11785057151 Active Baltazar Childers MD Active NAPROXEN 500 MG TABS 1 tablet by mouth twice daily NAPROXEN 56786069837 No Longer Active Baltazar Childers MD Active PROAIR HFA 108 (90 BASE) MCG/ACT AERS 2 puffs four times a d ay as needed ALBUTEROL SULFATE 18164484916 Active Baltazar Childers MD Active DEPO-TESTOSTERONE 200 MG/ML OIL as directed RUFINO TOSTERONE CYPIONATE 74773393533 No Longer Active Baltazar Childers MD Active LIPITOR 20 MG TABS Take one by mouth daily in evening ATORVASTATIN CALCIUM 70555837729 No Longer Active Baltazar Childers MD Activ e CRESTOR 10 MG TABS 1 by mouth every day R OSUVASTATIN CALCIUM 25463519455 No Longer Active Baltazar Childers MD Activ e PHENTERMINE HCL 37.5 MG TABS Take one by mouth daily 2 PHENTERMINE HCL 71350288276 No Longer Active Baltazar Childers MD Activ e ROBAXIN-750 750 MG TABS Take one by mouth daily ME THOCARBAMOL 49092845541 Active Baltazar Childers MD Active TIZANIDINE HCL 4 MG TABS 1 daily as needed for muscle spasm 2011 TIZANIDINE HCL 84113298403 No Longer Active Dawna Salazar RN Active [id number] 50-325-40 MG TABS 1 four time s a day as needed for heacache EDROPYQCIU-[id number] 38767895911 Active Baltazar Childers MD Active SUMATRIPTAN SUCCINATE 100 MG TABS 1 tablet by mouth at onset of migraine as needed SUMATRIPTAN SUCCINATE 15340649672 Active KENDALL Juarez Active LORATADINE 10 MG TABS Take one by mouth daily LORATADINE 74644521200 Active Baltazar Childers MD Active OMEPRAZOLE 20 MG CPDR Take one by mouth daily OMEPRAZOLE 32546639983 Active [place] Lyons Active HYDROXYZINE HCL 25 MG TABS Take one by mouth daily HYDROXYZINE HCL 38285207861 Active Baltazar Childers MD Active GLIPIZIDE 10 MG TABS 1 tablet by mouth twice daily GLIPIZIDE 78532384199 Active Baltazar Childers MD Active ALPRAZOLAM 1 MG TABS 1 tablet by mouth daily at bedtime for restles s leg ALPRAZOLAM 89495380313 Active Baltazar Childers MD Active METFORMIN HCL 1000 MG TABS Take one by mouth twice daily METFORMIN HCL 17943454451 Active Baltazar Childers MD Active TIZANIDINE HCL 4 MG TABS 1 daily as needed for muscle spasm 2011 TIZANIDINE HCL 4 MG TABS 760266 TIZANIDINE HCL Inactiv e PHENTERMINE HCL 37.5 MG TABS Take one by mouth daily 2 PHENTERMINE HCL 37.5 MG TABS 292666 PHENTERMINE HCL Inactive CRESTOR 10 MG TABS 1 by mouth every day C RESTOR 10 MG TABS 296681 ROSUVASTATIN CALCIUM Inactive LIPITOR 20 MG TABS Take one by mouth daily in evening LIPITOR 20 MG TABS 725578 ATORVASTATIN CALCIUM Inactive DEPO-TESTOSTERONE 200 MG/ML OIL as directed 8 DEPO-TESTOSTERONE 200 MG/ML OIL 413364 TESTOSTERONE CYPIONATE Inactive NAPROXEN 500 MG TABS 1 tablet by mouth twice daily 201 07/27/22 NAPROXEN 500 MG TABS 084030 NAPROXEN Inactive GABAPENTIN 300 MG CAPS 1 po qd x 2 days, then 1 po BID x 2 d ays, then 1 po TID GABAPENTIN 300 MG CAPS 277912 GABAPENTIN Inact amie ONETOUCH ULTRA BLUE STRP Test twice a day ONETOUCH ULTRA BLUE STRP GLUCOSE BLOOD Inactive NAPROXEN SODIUM 220 MG ORAL TABS 1 three times a day as needed 2 NAPROXEN SODIUM 220 MG ORAL TABS 190215 NAPROXEN SODIUM Inactive TOUJEO SOLOSTAR 300 UNIT/ML [...] Fluarix, Agriflu(>= 18 yo)) Fluzone (>3 yrs.) [ZGZ120] Influenza, seasonal, inject able Seasonal influenza vaccine, injectable, containing preservative, for > 3 years old (Afluria, FluLaval, Fluzone, Fluvirin, Fluarix, Agriflu(>= 18 yo)) Fluzone (>3 yrs.) [SOP143] Influenza, seasonal, inject able Vital Signs Date [...] C - Chemistry sodium, serum 139 mmol/L 495-979 9743/07/07 potassium, serum 4.5 mmol/L 3.5-5.2 chloride, serum [...] 7.9 % 4.3-6.0 sodium, serum 139 mmol/L 146-957 2911/02/04 potassium, serum 5.4 mmol/L 3.5-5.2 chloride, serum [...] Panel - Chemistry sodium, serum 138 mmol/L 132-880 2280/11/23 carbon dioxide, venous blood 32.4 mmol/L 21.0-32 .0 potassium, serum 5.7 mmol/L 3.5-5.2 chloride, serum 98 mmol/L 98-107 blood glucose 136 mg/dL 65-110 urea nitrogen, blood 18 mg/dL 7-18 creatinine, serum 1.71 mg/dL 0.55-1.30 alanine aminotransferase (SGPT), serum 71 U/L 12-78 aspartate aminotransferase (SGOT), serum 34 U/L 15-37 calcium, serum 9.4 mg/dL 8.5-10.1 bilirubin, serum, total 0.40 mg/dL 0.00-1.00 cholesterol, serum 405 mg/dL 420-350 8698/11/23 triglyceride, serum, fasting 709 mg/dL 30-200 HDL [...] Panel - Chemistry sodium, serum 141 mmol/L 961-227 2471/08/08 potassium, serum 4.9 mmol/L 3.5-5.2 chloride, serum [...] mg/dL Encounters Code Encounter Date Provider Facility CPT-74792 Level 4 Est. Patient 11:34:17 CDT Baltazar Childers MD [facility] CPT-64498 Level 3 Est. Patient 16:40:40 CDT Baltazar Childers MD [facility] CPT-52070 Level 4 Est. Patient 10:41:24 CDT Baltazar Childers MD [facility] CPT-13343 Level 4 Est. Patient 16:01:48 CDT Baltazar Childers MD [facility] CPT-56401 Level 4 Est. Patient 16:54:07 CARGOMAN Baltazar Childers MD [facility] CPT-90541 Level 4 Est. Patient 15:42:12 CDT Baltazar Childers MD [facility] CPT-25914 Level 4 Est. Patient 11:29:55 CDT Baltazar Childers MD [facility] CPT-14345 Level 4 Est. Patient 14:15:19 CDT Baltazar Childers MD [facility] CPT-26158 Level 4 Est. Patient 12:20:13 CDT Baltazar Childers MD [facility] CPT-01208 Level 4 Est. Patient 14:52:45 CARGOMAN Baltazar Childers MD [facility] CPT-25829 Level 4 Est. Patient 14:18:34 CARGOMAN Baltazar Childers MD [facility] CPT-69578 Level 4 Est. Patient 15:18:29 CDT Baltazar Childers MD [facility] CPT-99804 Level 3 Est. Patient 12:45:34 CDT Baltazar Childers MD [facility] CPT-22421 Level 3 Est. Patient 10:10:11 CDT Baltazar Childers MD [facility] CPT-08980 Level 3 Est. Patient 14:07:50 CDT Baltazar Childers MD [facility] CPT-86367 Level 4 Est. Patient 12:26:10 CARGOMAN Baltazar Childers MD [facility] CPT-69593 Level 4 Est. Patient 14:45:38 CDT Baltazar Childers MD [facility] CPT-59649 Level 4 New Patient 12:30:48 CDT Baltazar hinton MD [facility] Procedures Code Procedure Name Date Entry Date Standard Desc ription CPT-51604 Renal Panel - LAB USE ONLY 17:39:20 CDT 201 10/31/07 CPT-46838 CBC - LAB USE ONLY 17:39:20 CDT CPT-24469 Venipuncture Draw Fee 17:39:20 CDT CPT-66149 Venipuncture Draw Fee 14:33:30 CDT CPT-58292 Renal Panel - LAB USE ONLY 14:33:30 CDT 201 10/31/07 CPT-39869 CBC - LAB USE ONLY 14:33:29 CDT CPT-32682 Venipuncture Draw Fee 14:50:21 CARGOMAN CPT-05865 Immunization Single Admin 17:35:35 CDT 2014 CPT-37135 Fluzone Quadrivalent preservative free ( >=3yrs.) 17:35:35 CDT CPT-75189 Venipuncture Draw Fee 12:10:27 CARGOMAN CPT-41363 Fluzone Quadrivalent Intramuscular Suspe nsion 0.5 ML 10:49:13 CDT CPT-84706 First Vx Component - Ix admi n via ID IM or jet inj without physician counseling 15:17:19 CARGOMAN CPT-58378 Pneumovax 15:17:19 CARGOMAN CPT-51323 Pneumovax 14:52:45 CARGOMAN CPT-97979 Venipuncture Draw Fee 14:06:30 CARGOMAN CPT-000 Give Appropriate Flu Vaccine 14:18:34 CARGOMAN 2 CPT-97969 Administration single or combination vac cine inc oral 14:46:00 CARGOMAN CPT-33245 Influenza split virus > age 3 14:46:00 CARGOMAN CPT-OV Office Visit 19:13:16 CDT CPT-98679 Zostavax 18:41:56 CDT CPT-72519 Administration single or combination vac cine inc oral 12:56:39 CDT CPT-15374 Zoster Vaccine (Zostavax) 12:56:39 CDT 2012 CPT-68075 Venipuncture Draw Fee 10:58:57 CDT CPT-58805 Sono pelvis non OB uterus ovaries cervix 17:45:04 CDT CPT-59705 Sono retroperitoneal complete kidneys an d bladder 17:14:36 CDT CPT-OV Office Visit 14:59:38 CARGOMAN CPT-J1070 Depo Testosterone 100 mg 14:50:13 CDT 03/05 CPT-75840 Abx/Therapy Injection 14:50:13 CDT CPT-18488 Administration single or combination vac cine inc oral 14:34:43 CDT CPT-57004 Influenza split virus > age 3 14:34:43 CDT CPT-J1070 Depo Testosterone 100 mg 17:37:13 CDT 01/11 CPT-39445 Abx/Therapy Injection 17:37:13 CDT CPT-66482 Venipuncture Draw Fee 16:30:13 CDT CPT-31134 Venipuncture Draw Fee 16:29:43 CDT CPT-J1070 Depo Testosterone 100 mg 14:45:38 CDT 01/11
--- OUTSIDE RECORDS SUMMARY | 2019-10-27 12:39 | XMS REPORT | Clinical Summary ---
Author Author Abhishek, Elba Lance [facility] Address Unknown Phone Unavailable Allergies, Adverse 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 [employer]IVER Benign neoplasm of colon PERIPHERAL NEUROPATHY 356.9 [...] ronary atherosclerosis of unspecified type of vessel, ho-chunk or graft OTH NONSPC ABN FINDNG RAD&OTH [...] Chronic pain syndrome COLON POLYPS ICD-211.3 Inactive oLlis Barron Medication List Medication Instructions Start Date Stop Date Generic Name NDC Status Provider Patient Instruction TRUEPLUS LANCETS 33G MISC Test twice a day LANCET S [id number] Active Baltazar Childers MD Active TRUEDRAW LANCING DEVICE MISC Test twice a day L ANCET DEVICES 26434983539 Active Baltazar Childers MD Active TRUETRACK TEST STRP Test twice a day GLUCOSE BLOO D 25276823850 Active Baltazar Childers MD Active TRUETRACK BLOOD GLUCOSE W/DEVICE KIT Test twice a day BLOOD GLUCOSE MONITORING SUPPL 87545066566 Active 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 HYDROCODONE-ACETAMINOPHEN 7.5-325 MG TABS Take 1 tab every 6-8 hour s PRN HYDROCODONE-ACETAMINOPHEN 35120972981 Active Baltazar Childers MD Active NORTRIPTYLINE HCL 50 MG CAPS 1 every night for neuropathy 4 NORTRIPTYLINE HCL 86687756527 Active Baltazar Childers MD Acti ve GABAPENTIN 300 MG CAPS 1 three times a day GABAPE NTIN 04731635901 Active Baltazar Childers MD Active GABAPENTIN 300 MG CAPS 1 po qd x 2 days, then 1 po BID x 2 d ays, then 1 po TID GABAPENTIN 13616249763 No Longer Active Baltazar silverman MD Active TRAMADOL HCL 50 MG TABS 1 twice a day as needed for pain TRAMADOL HCL 57079959090 Active Baltazar Childers MD Active NAPROXEN 500 MG TABS 1 tablet by mouth twice daily NAPROXEN 33030964910 No Longer Active Baltazar Childers MD Active PROAIR HFA 108 (90 BASE) MCG/ACT AERS 2 puffs four times a d ay as needed ALBUTEROL SULFATE 68458304576 Active Baltazar Childers MD Active DEPO-TESTOSTERONE 200 MG/ML OIL as directed RUFINO TOSTERONE CYPIONATE 60435537429 No Longer Active Baltazar Childers MD Active LIPITOR 20 MG TABS Take one by mouth daily in evening ATORVASTATIN CALCIUM 44778211938 No Longer Active Baltazar Childers MD Activ e CRESTOR 10 MG TABS 1 by mouth every day R OSUVASTATIN CALCIUM 00265531634 No Longer Active Baltazar Childers MD Activ e PHENTERMINE HCL 37.5 MG TABS Take one by mouth daily 2 PHENTERMINE HCL 53625004448 No Longer Active Baltazar Childers MD Activ e ROBAXIN-750 750 MG TABS Take one by mouth daily ME THOCARBAMOL 22736516032 Active Baltazar Childers MD Active TIZANIDINE HCL 4 MG TABS 1 daily as needed for muscle spasm 2011 TIZANIDINE HCL 40314245693 No Longer Active Dawna Salazar RN Active ONETOUCH ULTRA BLUE STRP Test twice a day GLUCO SE BLOOD 89087233735 Active Baltazar Childers MD Active [id number]-[id number]-[id number] 50-325-40 MG TABS 1 four time s a day as needed for heacache [id number] 48131825466 Active Baltazar Childers MD Active SUMATRIPTAN SUCCINATE 100 MG TABS 1 tablet by mouth at onset of migraine as needed SUMATRIPTAN SUCCINATE 99978034364 Active Baltazar barron MD Active LORATADINE 10 MG TABS Take one by mouth daily LORATADINE 06380006375 Active Baltazar Childers MD Active FUROSEMIDE 40 MG TABS Take one by mouth daily FUROSEMIDE 06946377330 Active Baltazar Childers MD Active LISINOPRIL 20 MG TABS Take one by mouth daily at bedtime LISINOPRIL 26461484996 Active Baltazar Childers MD Active OMEPRAZOLE 20 MG CPDR Take one by mouth daily OMEPRAZOLE 09842799536 Active Baltazar Childers MD Active HYDROXYZINE HCL 25 MG TABS Take one by mouth daily HYDROXYZINE HCL 59554744522 Active Baltazar Childers MD Active GLIPIZIDE 10 MG TABS 1 tablet by mouth twice daily GLIPIZIDE 77248259309 Active Baltazar Childers MD Active ALPRAZOLAM 1 MG TABS 1 tablet by mouth daily at bedtime for restles s leg ALPRAZOLAM 28598833614 Active Baltazar Childers MD Active METFORMIN HCL 1000 MG TABS Take one by mouth twice daily METFORMIN HCL 03595960014 Active Baltazar Childers MD Active TIZANIDINE HCL 4 MG TABS 1 daily as needed for muscle spasm 2011 TIZANIDINE HCL 4 MG TABS 016412 TIZANIDINE HCL Inactiv e PHENTERMINE HCL 37.5 MG TABS Take one by mouth daily 2 PHENTERMINE HCL 37.5 MG TABS 815797 PHENTERMINE HCL Inactive CRESTOR 10 MG TABS 1 by mouth every day C RESTOR 10 MG TABS ROSUVASTATIN CALCIUM Inactive LIPITOR 20 MG TABS Take one by mouth daily in evening LIPITOR 20 MG TABS 253726 ATORVASTATIN CALCIUM Inactive DEPO-TESTOSTERONE 200 MG/ML OIL as directed 8 DEPO-TESTOSTERONE 200 MG/ML OIL 318708 TESTOSTERONE CYPIONATE Inactive NAPROXEN 500 MG TABS 1 tablet by mouth twice daily 201 07/27/22 NAPROXEN 500 MG TABS 034078 NAPROXEN Inactive GABAPENTIN 300 MG CAPS 1 po qd x 2 days, then 1 po BID x 2 d ays, then 1 po TID GABAPENTIN 300 MG CAPS 784431 GABAPENTIN Inact amie Immunizations Vaccine Administration Date Value Standard Floyd cription pneumococcal immunization administered Pneumovax 23 [CVX33] pneumococcal polysaccharide vaccine, 23 valent Seasonal influenza vaccine, injectable, containing preservative, for > 3 years old (Afluria, FluLaval, Fluzone, Fluvirin, Fluarix, Agriflu(>= 18 yo)) Fluzone (>3 yrs.) [RRQ479] Influenza, seasonal, inject able Seasonal influenza vaccine, injectable, containing preservative, for > 3 years old (Afluria, FluLaval, Fluzone, Fluvirin, Fluarix, Agriflu(>= 18 yo)) Fluzone (>3 yrs.) [TDD573] Influenza, seasonal, inject able Vital Signs Date [...] - Chem istry sodium, serum 140 mmol/L 149-683 9555/05/05 potassium, serum 4.9 mmol/L 3.5-5.2 chloride, serum [...] Panel - Chemistry sodium, serum 139 mmol/L 210-732 7985/01/20 potassium, serum 5.3 mmol/L 3.5-5.2 chloride, serum [...] mg/g mg/g{creat} 0-29 cholesterol, serum 319 mg/dL 793-478 1816/08/21 triglyceride, serum, fasting 546 mg/dL 30-200 HDL cholesterol, serum 39 mg/dL 32-96 LDL cholesterol, serum 167.00 mg/dL 5.00-130.00 hemoglobin A1C, blood, as % of total hemoglobin 7.7 % 4.3-6.0 sodium, serum 138 mmol/L 318-325 5802/08/21 potassium, serum 4.3 mmol/L 3.5-5.2 chloride, serum [...] 0-19 Encounters Code Encounter Date Provider Facility CPT-52008 Level 4 Est. Patient 11:29:55 CDT Baltazar Childers MD [facility] CPT-91901 Level 4 Est. Patient 14:15:19 CDT Baltazar Childers MD [facility] CPT-24160 Level 4 Est. Patient 12:20:13 CDT Baltazar Childers MD [facility] CPT-59008 Level 4 Est. 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 Patient 14:18:34 HYPERION ESSBASE DEVELOPER Baltazar Childers MD [facility] CPT-31255 Level 4 Est. Patient 15:18:29 CDT Baltazar Childers MD [facility] CPT-07642 Level 3 Est. Patient 12:45:34 CDT Baltazar Childers MD [facility] CPT-21126 Level 3 Est. Patient 10:10:11 CDT Baltazar Childers MD [facility] CPT-48139 Level 3 Est. Patient 14:07:50 CDT Baltazar Childers MD [facility] CPT-39903 Level 4 Est. Patient 12:26:10 HYPERION ESSBASE DEVELOPER Baltazar Childers MD [facility] CPT-61966 Level 4 Est. Patient 14:45:38 CDT Baltazar Childers MD [facility] CPT-62186 Level 4 New Patient 12:30:48 CDT Baltazar hinton MD [facility] Procedures Code Procedure Name Date Entry Date Standard Desc ription CPT-25024 Venipuncture Draw Fee 12:10:27 HYPERION ESSBASE DEVELOPER CPT-33354 Fluzone Quadrivalent Intramuscular Suspe nsion 0.5 ML 10:49:13 CDT CPT-58746 First Vx Component - Ix admi n via ID IM or jet inj without physician counseling 15:17:19 HYPERION ESSBASE DEVELOPER CPT-37083 Pneumovax 15:17:19 HYPERION ESSBASE DEVELOPER CPT-15105 Pneumovax 14:52:45 HYPERION ESSBASE DEVELOPER CPT-42510 Venipuncture Draw Fee 14:06:30 HYPERION ESSBASE DEVELOPER CPT-000 Give Appropriate Flu Vaccine 14:18:34 HYPERION ESSBASE DEVELOPER 2 CPT-44422 Administration single or combination vac cine inc oral 14:46:00 HYPERION ESSBASE DEVELOPER CPT-84252 Influenza split virus > age 3 14:46:00 HYPERION ESSBASE DEVELOPER CPT-OV Office Visit 19:13:16 CDT CPT-73489 Zostavax 18:41:56 CDT CPT-45680 Administration single or combination vac cine inc oral 12:56:39 CDT CPT-41479 Zoster Vaccine (Zostavax) 12:56:39 CDT 2012 CPT-28657 Venipuncture Draw Fee 10:58:57 CDT CPT-68812 Sono pelvis non OB uterus ovaries cervix 17:45:04 CDT CPT-79333 Sono retroperitoneal complete kidneys an d bladder 17:14:36 CDT CPT-OV Office Visit 14:59:38 HYPERION ESSBASE DEVELOPER CPT-J1070 Depo Testosterone 100 mg 14:50:13 CDT 03/05 CPT-40619 Abx/Therapy Injection 14:50:13 CDT CPT-91995 Administration single or combination vac cine inc oral 14:34:43 CDT CPT-21791 Influenza split virus > age 3 14:34:43 CDT CPT-J1070 Depo Testosterone 100 mg 17:37:13 CDT 01/11 CPT-65271 Abx/Therapy Injection 17:37:13 CDT CPT-19077 Venipuncture Draw Fee 16:30:13 CDT CPT-51684 Venipuncture Draw Fee 16:29:43 CDT CPT-J1070 Depo Testosterone 100 mg 14:45:38 CDT 01/11
--- OUTSIDE RECORDS SUMMARY | 2019-10-27 12:40 | XMS REPORT | Clinical Summary ---
Author Author Abhishek, Elba Lance [facility] Address Unknown Phone Unavailable Allergies, 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 BUNG SEWER Benign neoplasm of colon PERIPHERAL NEUROPATHY 356.9 Active Baltazar Nickerson MD Unspecified hereditary and idiopathic peripheral neuropathy PERSONAL HISTORY OF COLONIC POLYPS V12.72 Active 2 Lolis Thomas BUNG SEWER Personal history of colonic polyps PARESTHESIA, HANDS 782.0 Active Baltazar Childers MD Disturbance of skin sensation FH DIABETES V18.0 Active Baltazar Childers MD Family history of diabetes mellitus ANEMIA 285.9 Active Baltazar Childers MD Anemia, unspecified RENAL INSUFFICIENCY 593.9 Active Baltazar bynum MD Unspecified disorder of kidney and ureter CAD 414.00 Active Gladys Arce [facility] Co ronary atherosclerosis of unspecified type of vessel, [place] or graft OTH NONSPC ABN FINDNG RAD&OTH [...] three times a day 201 12/03/26 GABAPENTIN 37388395346 No Longer Active Baltazar Childers MD Activ e LISINOPRIL 20 MG ORAL TABLET 1 tablet by mouth daily at night 2016 LISINOPRIL 97803435587 Active Baltazar Childers MD Active ZITHROMAX Z-ISAIAS 250 MG ORAL TABLET Take two tablets to day and then 1 tablet daily for 4 days AZITHROMYCIN 87619035219 No Longer A ctive Baltazar Childers MD Active LANTUS SOLOSTAR 100 UNIT/ML SUBCUTANEOUS SOLUTION PEN- INJECTOR 30 units SC daily INSULIN GLARGINE 63001944108 Active Baltazar Childers MD Active AMLODIPINE BESYLATE 5 MG ORAL TABLET 1 tab daily for HTN AMLODIPINE BESYLATE 97254524405 Active Baltazar Childers MD Active SYNTHROID 100 MCG ORAL TABLET 1 tablet by mouth daily LEVOTHYROXINE SODIUM 10631138136 Active Baltazar Childers MD Active GLIPIZIDE 10 MG ORAL TABLET take 2 tablets twice daily GLIPIZIDE 43643621790 Active Baltazar Childers MD Active SUCRALFATE 1 GM ORAL TABLET 1 four times a day to coat the stoma ch SUCRALFATE 70693300517 No Longer Active Baltazar Childers MD Active PEN NEEDLES 31G X 6 MM use 1 daily INSULIN PEN NE EDLE 69883001833 Active KENDALL Juarez Active APARNAURINKUO SOLOSTAR 300 UNIT/ML SUBCUTANEOUS SOLUTION PEN- INJECTOR 10 units SC daily INSULIN GLARGINE 16456369686 No Longer Active Rola ARGUETA Active NAPROXEN SODIUM 220 MG ORAL TABLET 1 three times a day as needed NAPROXEN SODIUM 50538462817 No Longer Active Baltazar Childers MD Active ATORVASTATIN CALCIUM 20 MG ORAL TABLET Take 1 tab daily ATORVASTATIN CALCIUM 32968319518 Active Baltazar Childers MD A ctive FUROSEMIDE 40 MG ORAL TABLET Take one by mouth daily FUROSEMIDE 29506553124 Active Baltazar Childers MD Active LISINOPRIL 20 MG ORAL TABLET Take one by mouth daily at bedtime LISINOPRIL 95644613109 No Longer Active Baltazar Childers MD Active ONETOUCH ULTRA BLUE IN VITRO STRIP Test twice a day 07/11/11 GLUCOSE BLOOD 20911235484 No Longer Active Baltazar Childers MD Acti ve TRUEPLUS LANCETS 33G Test twice a day LANCETS 4425297 8080 Active KENDALL Juarez Active TRUEDRAW LANCING DEVICE Test twice a day LANCET DEVICES 16440737274 Active Baltazar Childers MD Active TRUETRACK TEST IN VITRO STRIP Test twice a day GLUCOSE BLOOD 50567343264 Active KENDALL Juarez Active TRUETRACK BLOOD GLUCOSE w/Device KIT Test twice a day BLOOD GLUCOSE MONITORING SUPPL 23365013148 Active Baltazar Childers MD Activ e HYDROCODONE-ACETAMINOPHEN 7.5-325 MG ORAL TABLET Take 1 tab every 6-8 hours PRN HYDROCODONE-ACETAMINOPHEN 12073789849 Active Baltazar Nickerson MD Active NORTRIPTYLINE HCL 50 MG ORAL CAPSULE 1 every night for neuropathy 2 NORTRIPTYLINE HCL 16958634760 Active Baltazar Childers MD Acti ve GABAPENTIN 300 MG ORAL CAPSULE 1 po qd x 2 days, then 1 po BID x 2 days, then 1 po TID GABAPENTIN 64313500080 No Longer Active Baltazar Childers MD Active TRAMADOL HCL 50 MG ORAL TABLET 1 twice a day as needed for pain 201 07/27/28 TRAMADOL HCL 15925444938 Active Baltazar Childers MD Active NAPROXEN 500 MG ORAL TABLET 1 tablet by mouth twice daily NAPROXEN 35844650219 No Longer Active Baltazar Childers MD Active PROAIR HFA 108 (90 Base) MCG/ACT INHALATION AEROSOL SO LUTION 2 puffs four times a day as needed ALBUTEROL SULFATE 72798085455 Active KENDALL Bowie Active DEPO-TESTOSTERONE 200 MG/ML INTRAMUSCULAR SOLUTION as directed TESTOSTERONE CYPIONATE 02608934897 No Longer Active Baltazar Childers MD Active LIPITOR 20 MG ORAL TABLET Take one by mouth daily in evening ATORVASTATIN CALCIUM 73803332461 No Longer Active Baltazar Childers MD Active CRESTOR 10 MG ORAL TABLET 1 by mouth every day ROSUVASTATIN CALCIUM 00580284867 No Longer Active Baltazar Childers MD Active PHENTERMINE HCL 37.5 MG ORAL TABLET Take one by mouth daily PHENTERMINE HCL 68207793748 No Longer Active Baltazar Childers MD Ac tive ROBAXIN-750 750 MG ORAL TABLET Take one by mouth daily METHOCARBAMOL 74647290822 Active KENDALL Juarez Active TIZANIDINE HCL 4 MG ORAL TABLET 1 daily as needed for muscle spa sm TIZANIDINE HCL 61229280422 No Longer Active Dawna Salazar RN Active NXJFWKYQTG-MIZO-SKRXPAWS 50-325-40 MG ORAL TABLET 1 fo ur times a day as needed for heacache LILKJGYAJP-VYRX-ATKAMUXK 83953131396 Active Baltazar Childers MD Active SUMATRIPTAN SUCCINATE 100 MG ORAL TABLET 1 tablet by m outh at onset of migraine as needed SUMATRIPTAN SUCCINATE 19017875762 Active KENDALL Restrepo Active LORATADINE 10 MG ORAL TABLET Take one by mouth daily LORATADINE 30146278173 Active KENDALL Juarez Active OMEPRAZOLE 20 MG ORAL CAPSULE DELAYED RELEASE Take one by mouth jostin ly OMEPRAZOLE 14303440017 Active Baltazar Childers MD Active HYDROXYZINE HCL 25 MG ORAL TABLET Take one by mouth daily HYDROXYZINE HCL 53571847276 Active Baltazar Childers MD Active ALPRAZOLAM 1 MG ORAL TABLET 1 tablet [facility] ALPRAZOLAM 93280879203 Active Baltazar Childers MD Active METFORMIN HCL 1000 MG ORAL TABLET Take one by mouth twice daily METFORMIN HCL 00933851827 Active Baltazar Childers MD Active TIZANIDINE HCL 4 MG ORAL TABLET 1 daily as needed for muscle spa sm TIZANIDINE HCL 4 MG ORAL TABLET 022099 TIZANIDINE HCL Inactive PHENTERMINE HCL 37.5 MG ORAL TABLET Take one by mouth daily PHENTERMINE HCL 37.5 MG ORAL TABLET 411518 PHENTERMINE HCL Inac tive CRESTOR 10 MG ORAL TABLET 1 by mouth every day CRESTOR 10 MG ORAL TABLET 598983 ROSUVASTATIN CALCIUM Inactive LIPITOR 20 MG ORAL TABLET Take one by mouth daily in evening LIPITOR 20 MG ORAL TABLET 547984 ATORVASTATIN CALCIUM Inactive DEPO-TESTOSTERONE 200 MG/ML INTRAMUSCULAR SOLUTION as directed DEPO-TESTOSTERONE 200 MG/ML INTRAMUSCULAR SOLUTION 297532 RUFINO TOSTERONE CYPIONATE Inactive NAPROXEN 500 MG ORAL TABLET 1 tablet by mouth twice daily NAPROXEN 500 MG ORAL TABLET 739577 NAPROXEN Inactive GABAPENTIN 300 MG ORAL CAPSULE 1 po qd x 2 days, then 1 po BID x 2 days, then 1 po TID GABAPENTIN 300 MG ORAL CAPSULE 094045 GABAP ENTIN Inactive ONETOUCH ULTRA BLUE IN VITRO STRIP Test twice a day 07/11/11 ONETOUCH ULTRA BLUE IN VITRO STRIP GLUCOSE BLOOD Inact amie NAPROXEN SODIUM 220 MG ORAL TABLET 1 three times a day as needed NAPROXEN SODIUM 220 MG ORAL TABLET 224152 NAPROXEN SODI UM Inactive TOUJEO SOLOSTAR 300 UNIT/ML SUBCUTANEOUS SOLUTION PEN- INJECTOR 10 units SC daily TOUJEO SOLOSTAR 300 UNIT/ML SUBCUTANEOUS SOLUTION PEN-INJECTOR INSULIN GLARGINE Inactive SUCRALFATE 1 GM ORAL TABLET 1 four times a day to coat the stoma ch SUCRALFATE 1 GM ORAL TABLET 805731 SUCRALFATE Inac tive GABAPENTIN 300 MG ORAL CAPSULE 1 three times a day 201 12/03/26 GABAPENTIN 300 MG ORAL CAPSULE 517312 GABAPENTIN Inactive ZITHROMAX Z-ISAIAS 250 MG ORAL TABLET Take two tablets to day and then 1 tablet daily for 4 days ZITHROMAX Z-ISAIAS 250 MG ORAL TAB LET 838497 AZITHROMYCIN Inactive Immunizations Vaccine Administration Date Value Standard Floyd cription pneumococcal immunization administered Pneumovax 23 [CVX33] pneumococcal polysaccharide vaccine, 23 valent Seasonal influenza vaccine, injectable, containing preservative, for > 3 years old (Afluria, FluLaval, Fluzone, Fluvirin, Fluarix, Agriflu(>= 18 yo)) Fluzone (>3 yrs.) [LBM312] Influenza, seasonal, inject able Seasonal influenza vaccine, injectable, containing preservative, for > 3 years old (Afluria, FluLaval, Fluzone, Fluvirin, Fluarix, Agriflu(>= 18 yo)) Fluzone (>3 yrs.) [COO022] Influenza, seasonal, inject able Vital Signs Date [...] - Chem istry sodium, serum 139 mmol/L 111-594 7494/10/03 potassium, serum 4.7 mmol/L 3.5-5.2 chloride, serum 98 mmol/L 98-107 carbon dioxide, venous blood 28.7 mmol/L 21.0-32 .0 blood glucose 218 mg/dL 65-110 calcium, serum 9.8 mg/dL 8.5-10.1 urea nitrogen, blood 19 mg/dL 7-18 creatinine, serum 1.68 mg/dL 0.60-1.30 Lab Report: Basic Metabolic Panel, [facility] C - Chemistry sodium, serum 143 mmol/L 271-753 8148/06/19 potassium, serum 5.9 mmol/L 3.5-5.2 chloride, serum 105 mmol/L 98-107 carbon dioxide, venous blood 30.2 mmol/L 21.0-32 .0 blood glucose 189 mg/dL 65-110 calcium, serum 9.7 mg/dL 8.5-10.1 urea nitrogen, blood 37 mg/dL 7-18 creatinine, serum 2.11 mg/dL 0.55-1.30 hemoglobin A1C, blood, as % of total hemoglobin 8.2 % 4.3-6.0 Lab Report: CBC, Renal Panel - Chemistry sodium, serum 142 mmol/L 211-426 7386/08/11 potassium, serum 4.8 mmol/L 3.5-5.2 chloride, serum [...] (L) - Chemistry cholesterol, serum 209 mg/dL 859-885 5133/12/27 triglyceride, serum, fasting 329 mg/dL 30-200 HDL cholesterol, serum 56 mg/dL 32-60 LDL cholesterol, serum 87 mg/dL 0-130 TSH 3.60 m[iU]/mL 0.36-3.74 Encounters Code Encounter Date Provider Facility CPT-69618 Level 4 Est. Patient 17:05:37 CDT Baltazar Childers MD [facility] CPT-60985 Level 4 Est. Patient 16:21:19 MAINTENANCE DEPARTMENT TECHNICIAN Baltazar Childers MD [facility] CPT-80527 Level 4 Est. Patient 12:25:11 CDT Baltazar Childers MD [facility]-78207 Level 4 Est. Patient 14:22:31 CDT Baltazar Childers MD [facility]-63638 Level 4 Est. Patient 15:44:38 CDT Shonna Parker APRN [facility]-96744 Level 4 Est. Patient 11:34:17 CDT Baltazar Childers MD [facility]-09159 Level 3 Est. Patient 16:40:40 CDT Baltazar Childers MD [facility]-02339 Level 4 Est. Patient 10:41:24 CDT Baltazar Childers MD [facility]-71898 Level 4 Est. Patient 16:01:48 CDT Baltazar Childers MD [facility]-92229 Level 4 Est. Patient 16:54:07 MAINTENANCE DEPARTMENT TECHNICIAN Baltazar Childers MD [facility]-16018 Level 4 Est. Patient 15:42:12 CDT Baltazar Childers MD [facility] CPT-07563 Level 4 Est. Patient 11:29:55 CDT Baltazar Childers MD [facility]-50864 Level 4 Est. Patient 14:15:19 CDT Baltazar Childers MD [facility] CPT-98603 Level 4 Est. Patient 12:20:13 CDT Baltazar Childers MD [facility] CPT-10721 Level 4 Est. Patient 14:52:45 MAINTENANCE DEPARTMENT TECHNICIAN Baltazar Childers MD [facility] CPT-06836 Level 4 Est. Patient 14:18:34 MAINTENANCE DEPARTMENT TECHNICIAN Baltazar Childers MD [facility]-90538 Level 4 Est. Patient 15:18:29 CDT Baltazar Childers MD [facility] CPT-59536 Level 3 Est. Patient 12:45:34 CDT Baltazar Childers MD [facility] CPT-63568 Level 3 Est. Patient 10:10:11 CDT Baltazar Childers MD [facility] CPT-02397 Level 3 Est. Patient 14:07:50 CDT Baltazar Childers MD [facility] CPT-58582 Level 4 Est. Patient 12:26:10 MAINTENANCE DEPARTMENT TECHNICIAN Baltazar Childers MD [facility] CPT-20443 Level 4 Est. Patient 14:45:38 CDT Baltazar Childers MD [facility] CPT-26996 Level 4 New Patient 12:30:48 CDT Baltazar hinton MD [facility] Procedures Code Procedure Name Date Entry Date Standard Desc ription CPT-000 Give Appropriate Flu Vaccine 12:25:14 CDT 2 CPT-59272 First Vx - Ix admin via ID I M or jet injects without counseling by physician 13:08:59 CDT CPT-28589 Fluzone Quadrivalent Intramuscular Suspe nsion 0.5 ML 13:08:59 CDT CPT-67574 Venipuncture Draw Fee 12:04:12 CDT CPT-89057 Lipid - LAB USE ONLY 17:39:15 MAINTENANCE DEPARTMENT TECHNICIAN 9 CPT-24995 HGBA1C - LAB USE ONLY 17:39:15 MAINTENANCE DEPARTMENT TECHNICIAN CPT-42615 CMP - LAB USE ONLY 17:39:14 MAINTENANCE DEPARTMENT TECHNICIAN CPT-61846 Venipuncture Draw Fee 17:39:14 MAINTENANCE DEPARTMENT TECHNICIAN CPT-59140 First Vx - Ix admin via ID I M or jet injects without counseling by physician 16:55:17 MAINTENANCE DEPARTMENT TECHNICIAN CPT-95762 Fluzone Quadrivalent Intramuscular Suspe nsion 0.5 ML 16:55:17 MAINTENANCE DEPARTMENT TECHNICIAN CPT-02321 Renal Panel - LAB USE ONLY 17:39:20 CDT 201 10/31/07 CPT-25029 CBC - LAB USE ONLY 17:39:20 CDT CPT-15816 Venipuncture Draw Fee 17:39:20 CDT CPT-28347 Venipuncture Draw Fee 14:33:30 CDT CPT-78748 Renal Panel - LAB USE ONLY 14:33:30 CDT 201 10/31/07 CPT-23811 CBC - LAB USE ONLY 14:33:29 CDT CPT-82226 Venipuncture Draw Fee 14:50:21 MAINTENANCE DEPARTMENT TECHNICIAN CPT-50240 Immunization Single Admin 17:35:35 CDT 2014 CPT-61947 Fluzone Quadrivalent preservative free ( >=3yrs.) 17:35:35 CDT CPT-23478 Venipuncture Draw Fee 12:10:27 MAINTENANCE DEPARTMENT TECHNICIAN CPT-05985 Fluzone Quadrivalent Intramuscular Suspe nsion 0.5 ML 10:49:13 CDT CPT-70323 First Vx Component - Ix admi n via ID IM or jet inj without physician counseling 15:17:19 MAINTENANCE DEPARTMENT TECHNICIAN CPT-12938 Pneumovax 23 15:17:19 MAINTENANCE DEPARTMENT TECHNICIAN CPT-07816 Pneumovax 14:52:45 MAINTENANCE DEPARTMENT TECHNICIAN CPT-89946 Venipuncture Draw Fee 14:06:30 MAINTENANCE DEPARTMENT TECHNICIAN CPT-000 Give Appropriate Flu Vaccine 14:18:34 MAINTENANCE DEPARTMENT TECHNICIAN 2 CPT-46102 Administration single or combination vac cine inc oral 14:46:00 MAINTENANCE DEPARTMENT TECHNICIAN CPT-54108 Influenza split virus > age 3 14:46:00 MAINTENANCE DEPARTMENT TECHNICIAN CPT-OV Office Visit 19:13:16 CDT CPT-71766 Zostavax 18:41:56 CDT CPT-36098 Administration single or combination vac cine inc oral 12:56:39 CDT CPT-29932 Zoster Vaccine (Zostavax) 12:56:39 CDT 2012 CPT-53532 Venipuncture Draw Fee 10:58:57 CDT CPT-84555 Sono pelvis non OB uterus ovaries cervix 17:45:04 CDT CPT-84084 Sono retroperitoneal complete kidneys an d bladder 17:14:36 CDT CPT-OV Office Visit 14:59:38 MAINTENANCE DEPARTMENT TECHNICIAN CPT-J1070 Depo Testosterone 100 mg 14:50:13 CDT 03/05 CPT-24444 Abx/Therapy Injection 14:50:13 CDT CPT-15435 Administration single or combination vac cine inc oral 14:34:43 CDT CPT-31517 Influenza split virus > age 3 14:34:43 CDT CPT-J1070 Depo Testosterone 100 mg 17:37:13 CDT 01/11 CPT-18474 Abx/Therapy Injection 17:37:13 CDT CPT-03095 Venipuncture Draw Fee 16:30:13 CDT CPT-78031 Venipuncture Draw Fee 16:29:43 CDT CPT-J1070 Depo Testosterone 100 mg 14:45:38 CDT 01/11
--- OUTSIDE RECORDS SUMMARY | 2019-10-27 12:40 | XMS REPORT | Clinical Summary ---
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 Benign neoplasm of colon PERIPHERAL NEUROPATHY [...] ronary atherosclerosis of unspecified type of vessel, [place] or graft OTH NONSPC ABN FINDNG RAD&OTH [...] 1 tab daily for HTN AMLODIPINE BESYLATE 11307255934 Active Ct Ledesma BRIDGE TOLL COLLECTOR Active SYNTHROID 0.1 MG TAB 1 tablet by mouth daily LE VOTHYROXINE SODIUM 87216277895 Active Shonna Parker APRN Active GLIPIZIDE 10 MG TAB take 2 tablets twice daily GLIPIZIDE 07272172377 Active Baltazar Childers MD Active SUCRALFATE 1 GM TABS 1 four times a day to coat the stomach 2015 SUCRALFATE 11254914865 No Longer Active Baltazar Childers MD Active PEN NEEDLES 31G X 6 MM MISC use 1 daily INSULIN PEN NEEDLE 90026153915 Active Gato Rae MD Active TOUJEO SOLOSTAR 300 UNIT/ML SC SOPN 10 units SC daily INSULIN GLARGINE 28039611314 No Longer Active Martita Herbert ARGUETA Active LANTUS SOLOSTAR 100 UNIT/ML SC SOPN 10 units SC daily INSULIN GLARGINE 09488655476 Active KENDALL Juaerz Active NAPROXEN SODIUM 220 MG ORAL TABS 1 three times a day as needed 2 NAPROXEN SODIUM 71154636125 No Longer Active Baltazar Childers MD Active ATORVASTATIN CALCIUM 20 MG ORAL TABS Take 1 tab daily ATORVASTATIN CALCIUM 15832597544 Active Baltazar Childers MD Active FUROSEMIDE 40 MG TABS Take one by mouth daily FUROSEMIDE 13797841469 Active Baltazar Childers MD Active LISINOPRIL 20 MG TABS Take one by mouth daily at bedtime LISINOPRIL 64399272201 No Longer Active Baltazar Childers MD Active ONETOUCH ULTRA BLUE STRP Test twice a day GLUCO SE BLOOD 28607491397 No Longer Active Baltazar Childers MD Active TRUEPLUS LANCETS 33G MISC Test twice a day LANCET S 14913898629 Active KENDALL Juarez Active TRUEDRAW LANCING DEVICE MISC Test twice a day L ANCET DEVICES 42696843175 Active Baltazar Childers MD Active TRUETRACK TEST STRP Test twice a day GLUCOSE BLOO D 84425331350 Active KENDALL Juarez Active TRUETRACK BLOOD GLUCOSE W/DEVICE KIT Test twice a day BLOOD GLUCOSE MONITORING SUPPL 07480963286 Active Baltazar Childers MD Activ e HYDROCODONE-ACETAMINOPHEN 7.5-325 MG TABS Take 1 tab every 6-8 hour s PRN HYDROCODONE-ACETAMINOPHEN 39371486815 Active Baltazar Childers MD Active NORTRIPTYLINE HCL 50 MG CAPS 1 every night for neuropathy 4 NORTRIPTYLINE HCL 88163129722 Active Baltazar Childers MD Acti ve GABAPENTIN 300 MG CAPS 1 three times a day GABAPE NTIN 69803129969 Active Baltazar Childers MD Active GABAPENTIN 300 MG CAPS 1 po qd x 2 days, then 1 po BID x 2 d ays, then 1 po TID GABAPENTIN 33301426145 No Longer Active Baltazar silverman MD Active TRAMADOL HCL 50 MG TABS 1 twice a day as needed for pain TRAMADOL HCL 89584429788 Active Baltazar Childers MD Active NAPROXEN 500 MG TABS 1 tablet by mouth twice daily NAPROXEN 35435246992 No Longer Active Baltazar Childers MD Active PROAIR HFA 108 (90 BASE) MCG/ACT AERS 2 puffs four times a d ay as needed ALBUTEROL SULFATE 58554862365 Active Baltazar Childers MD Active DEPO-TESTOSTERONE 200 MG/ML OIL as directed RUFINO TOSTERONE CYPIONATE 24585256759 No Longer Active Baltazar Childers MD Active LIPITOR 20 MG TABS Take one by mouth daily in evening ATORVASTATIN CALCIUM 77730613569 No Longer Active Baltazar Childers MD Activ e CRESTOR 10 MG TABS 1 by mouth every day R OSUVASTATIN CALCIUM 29564608360 No Longer Active Baltazar Childers MD Activ e PHENTERMINE HCL 37.5 MG TABS Take one by mouth daily 2 PHENTERMINE HCL 90544667258 No Longer Active Baltazar Childers MD Activ e ROBAXIN-750 750 MG TABS Take one by mouth daily ME THOCARBAMOL 77180944197 Active Baltazar Childers MD Active TIZANIDINE HCL 4 MG TABS 1 daily as needed for muscle spasm 2011 TIZANIDINE HCL 49931115400 No Longer Active Dawna Salazar RN Active [id number] 50-325-40 MG TABS 1 four time s a day as needed for heacache [id number] 51073994952 Active Baltazar Childers MD Active SUMATRIPTAN SUCCINATE 100 MG TABS 1 tablet by mouth at onset of migraine as needed SUMATRIPTAN SUCCINATE 08599817169 Active Shonna richey APRN Active LORATADINE 10 MG TABS Take one by mouth daily LORATADINE 09757019598 Active Bethrenetta Carr KENDALL Active OMEPRAZOLE 20 MG CPDR Take one by mouth daily OMEPRAZOLE 08137213865 Active Baltazar Childers MD Active HYDROXYZINE HCL 25 MG TABS Take one by mouth daily HYDROXYZINE HCL 43469058201 Active Baltazar Childers MD Active ALPRAZOLAM 1 MG TABS 1 tablet by mouth daily at bedtime for restles s leg ALPRAZOLAM 94486083772 Active Baltazar Childers MD Active METFORMIN HCL 1000 MG TABS Take one by mouth twice daily METFORMIN HCL 78169737284 Active Baltazar Childers MD Active TIZANIDINE HCL 4 MG TABS 1 daily as needed for muscle spasm 2011 TIZANIDINE HCL 4 MG TABS 401649 TIZANIDINE HCL Inactiv e PHENTERMINE HCL 37.5 MG TABS Take one by mouth daily 2 PHENTERMINE HCL 37.5 MG TABS 636688 PHENTERMINE HCL Inactive CRESTOR 10 MG TABS 1 by mouth every day C RESTOR 10 MG TABS 203429 ROSUVASTATIN CALCIUM Inactive LIPITOR 20 MG TABS Take one by mouth daily in evening LIPITOR 20 MG TABS 002887 ATORVASTATIN CALCIUM Inactive DEPO-TESTOSTERONE 200 MG/ML OIL as directed 8 DEPO-TESTOSTERONE 200 MG/ML OIL 900093 TESTOSTERONE CYPIONATE Inactive NAPROXEN 500 MG TABS 1 tablet by mouth twice daily 201 07/27/22 NAPROXEN 500 MG TABS 565008 NAPROXEN Inactive GABAPENTIN 300 MG CAPS 1 po qd x 2 days, then 1 po BID x 2 d ays, then 1 po TID GABAPENTIN 300 MG CAPS 594193 GABAPENTIN Inact amie ONETOUCH ULTRA BLUE STRP Test twice a day ONETOUCH ULTRA BLUE STRP GLUCOSE BLOOD Inactive NAPROXEN SODIUM 220 MG ORAL TABS 1 three times a day as needed 2 NAPROXEN SODIUM 220 MG ORAL TABS 593465 NAPROXEN SODIUM Inactive TOUJEO SOLOSTAR 300 UNIT/ML SC SOPN 10 units SC daily TOUJEO SOLOSTAR 300 UNIT/ML SC SOPN INSULIN GLARGINE Inac tive SUCRALFATE 1 GM TABS 1 four times a day to coat the stomach 2015 SUCRALFATE 1 GM TABS 821628 SUCRALFATE Inactive Immunizations Vaccine Administration Date Value Standard Floyd cription pneumococcal immunization administered Pneumovax 23 [CVX33] pneumococcal polysaccharide vaccine, 23 valent Seasonal influenza vaccine, injectable, containing preservative, for > 3 years old (Afluria, FluLaval, Fluzone, Fluvirin, Fluarix, Agriflu(>= 18 yo)) Fluzone (>3 yrs.) [[id number]] Influenza, seasonal, inject able Seasonal influenza vaccine, injectable, containing preservative, for > 3 years old (Afluria, FluLaval, Fluzone, Fluvirin, Fluarix, Agriflu(>= 18 yo)) Fluzone (>3 yrs.) [YJA071] Influenza, seasonal, inject able Vital Signs Date [...] C - Chemistry sodium, serum 143 mmol/L 873-020 7195/06/19 potassium, serum 5.9 mmol/L 3.5-5.2 chloride, serum [...] Panel - Chemistry sodium, serum 143 mmol/L 929-820 7487/12/19 carbon dioxide, venous blood 32.5 mmol/L 21.0-32 .0 potassium, serum 4.9 mmol/L 3.5-5.2 chloride, serum 101 mmol/L 98-107 blood glucose 129 mg/dL 65-110 urea nitrogen, blood 18 mg/dL 7-18 creatinine, serum 1.79 mg/dL 0.55-1.30 alanine aminotransferase (SGPT), serum 34 U/L 12-78 aspartate aminotransferase (SGOT), serum 26 U/L 15-37 calcium, serum 8.9 mg/dL 8.5-10.1 bilirubin, serum, total 0.30 mg/dL 0.00-1.00 cholesterol, serum 214 mg/dL 725-968 9732/12/19 triglyceride, serum, fasting 351 mg/dL 30-200 HDL [...] 4.9 mmol/L 3.5-5.2 sodium, serum 141 mmol/L 831-174 1810/08/08 blood glucose 193 mg/dL 65-110 urea nitrogen, blood 30 mg/dL 7-18 calcium, serum 9.8 mg/dL 8.5-10.1 Encounters Code Encounter Date Provider Facility CPT-72492 Level 4 Est. Patient 14:22:31 CDT Baltazar Childers MD [facility] CPT-86930 Level 4 Est. Patient 15:44:38 [facility] 4 Est. Patient 11:34:17 CDT Baltazar Childers MD [facility] CPT-45739 Level 3 Est. Patient 16:40:40 CDT Baltazar Childers MD [facility] CPT-98940 Level 4 Est. Patient 10:41:24 CDT Baltazar Childers MD [facility]-89921 Level 4 Est. Patient 16:01:48 CDT Baltazar Childers MD [facility] CPT-31583 Level 4 Est. Patient 16:54:07 WIRELINE FIELD OPERATOR Baltazar Childers MD [facility] CPT-29596 Level 4 Est. Patient 15:42:12 CDT Baltazar Childers MD [facility] CPT-93852 Level 4 Est. Patient 11:29:55 CDT Baltazar Childers MD [facility] CPT-91821 Level 4 Est. Patient 14:15:19 CDT Baltazar Childers MD [facility] CPT-51342 Level 4 Est. Patient 12:20:13 CDT Baltazar Childers MD [facility] CPT-52163 Level 4 Est. Patient 14:52:45 WIRELINE FIELD OPERATOR Baltazar Childers MD [facility] CPT-06421 Level 4 Est. Patient 14:18:34 WIRELINE FIELD OPERATOR Baltazar Childers MD [facility] CPT-35615 Level 4 Est. Patient 15:18:29 CDT Baltazar Childers MD [facility] CPT-70254 Level 3 Est. Patient 12:45:34 CDT Baltazar Childers MD [facility] CPT-64750 Level 3 Est. Patient 10:10:11 CDT Baltazar Childers MD [facility] CPT-26472 Level 3 Est. Patient 14:07:50 CDT Baltazar Childers MD [facility] CPT-62889 Level 4 Est. Patient 12:26:10 WIRELINE FIELD OPERATOR Baltazar Childers MD [facility] CPT-27506 Level 4 Est. Patient 14:45:38 CDT Baltazar Childers MD [facility] CPT-88120 Level 4 New Patient 12:30:48 CDT Baltazar hinton MD [facility] Procedures Code Procedure Name Date Entry Date Standard Desc ription CPT-05529 Lipid - LAB USE ONLY 17:39:15 WIRELINE FIELD OPERATOR 9 CPT-67034 HGBA1C - LAB USE ONLY 17:39:15 WIRELINE FIELD OPERATOR CPT-98211 CMP - LAB USE ONLY 17:39:14 WIRELINE FIELD OPERATOR CPT-35578 Venipuncture Draw Fee 17:39:14 WIRELINE FIELD OPERATOR CPT-75849 First Vx - Ix admin via ID I M or jet injects without counseling by physician 16:55:17 WIRELINE FIELD OPERATOR CPT-86968 Fluzone Quadrivalent Intramuscular Suspe nsion 0.5 ML 16:55:17 WIRELINE FIELD OPERATOR CPT-68789 Renal Panel - LAB USE ONLY 17:39:20 CDT 201 10/31/07 CPT-65228 CBC - LAB USE ONLY 17:39:20 CDT CPT-09060 Venipuncture Draw Fee 17:39:20 CDT CPT-69108 Venipuncture Draw Fee 14:33:30 CDT CPT-34372 Renal Panel - LAB USE ONLY 14:33:30 CDT 201 10/31/07 CPT-81750 CBC - LAB USE ONLY 14:33:29 CDT CPT-67768 Venipuncture Draw Fee 14:50:21 WIRELINE FIELD OPERATOR CPT-37303 Immunization Single Admin 17:35:35 CDT 2014 CPT-56513 Fluzone Quadrivalent preservative free ( >=3yrs.) 17:35:35 CDT CPT-45636 Venipuncture Draw Fee 12:10:27 WIRELINE FIELD OPERATOR CPT-66820 Fluzone Quadrivalent Intramuscular Suspe nsion 0.5 ML 10:49:13 CDT CPT-51676 First Vx Component - Ix admi n via ID IM or jet inj without physician counseling 15:17:19 WIRELINE FIELD OPERATOR CPT-77065 Pneumovax 23 15:17:19 WIRELINE FIELD OPERATOR CPT-11147 Pneumovax 14:52:45 WIRELINE FIELD OPERATOR CPT-27872 Venipuncture Draw Fee 14:06:30 WIRELINE FIELD OPERATOR CPT-000 Give Appropriate Flu Vaccine 14:18:34 WIRELINE FIELD OPERATOR 2 CPT-25751 Administration single or combination vac cine inc oral 14:46:00 WIRELINE FIELD OPERATOR CPT-02071 Influenza split virus > age 3 14:46:00 WIRELINE FIELD OPERATOR CPT-OV Office Visit 19:13:16 CDT CPT-80378 Zostavax 18:41:56 CDT CPT-06581 Administration single or combination vac cine inc oral 12:56:39 CDT CPT-69567 Zoster Vaccine (Zostavax) 12:56:39 CDT 2012 CPT-49558 Venipuncture Draw Fee 10:58:57 CDT CPT-13727 Sono pelvis non OB uterus ovaries cervix 17:45:04 CDT CPT-94040 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
--- OUTSIDE RECORDS SUMMARY | 2019-10-27 12:40 | XMS REPORT | Clinical Summary ---
Author Author Admin, Elba Lance [facility] Address Unknown Phone Unavailable Allergies, Adverse 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 CLINICAL FACULTY Benign neoplasm of colon PERIPHERAL NEUROPATHY 356.9 [...] tablet by mouth daily LE VOTHYROXINE SODIUM 76037086902 Active Carina Tucker LPN Active GLIPIZIDE 10 MG TAB take 2 tablets twice daily GLIPIZIDE 42170567702 Active Carina Tucker LPN Active SUCRALFATE 1 GM TABS 1 four times a day to coat the stomach 2015 SUCRALFATE 78380716459 No Longer Active Baltazar Childers MD Active PEN NEEDLES 31G X 6 MM MISC use 1 daily INSULIN PEN NEEDLE 82401322341 Active Bella Suarez CLINICAL FACULTY Active TOURINKUO SOLOSTAR 300 UNIT/ML SC SOPN 10 units SC daily INSULIN GLARGINE 49207216837 No Longer Active Martita Godinez KENDALL Active LANTUS SOLOSTAR 100 UNIT/ML SC SOPN 10 units SC daily INSULIN GLARGINE 63165492585 Active Baltazar Childers MD Active NAPROXEN SODIUM 220 MG ORAL TABS 1 three times a day as needed 2 NAPROXEN SODIUM 97561586696 No Longer Active Baltazar Childers MD Active ATORVASTATIN CALCIUM 20 MG ORAL TABS Take 1 tab daily ATORVASTATIN CALCIUM 27367445574 Active Baltazar Childers MD Active FUROSEMIDE 40 MG TABS Take one by mouth daily FUROSEMIDE 60239685211 Active Baltazar Childers MD Active LISINOPRIL 20 MG TABS Take one by mouth daily at bedtime LISINOPRIL 39949634273 Active KENDALL Juarez Active ONETOUCH ULTRA BLUE STRP Test twice a day GLUCO SE BLOOD 26469803217 No Longer Active Baltazar Childers MD Active TRUEPLUS LANCETS 33G MISC Test twice a day LANCET S 29454918006 Active KENDALL Juarez Active TRUEDRAW LANCING DEVICE MISC Test twice a day L ANCET DEVICES 55128088569 Active Baltazar Childers MD Active TRUETRACK TEST STRP Test twice a day GLUCOSE BLOO D 68212226352 Active KENDALL Juarez Active TRUETRACK BLOOD GLUCOSE W/DEVICE KIT Test twice a day BLOOD GLUCOSE MONITORING SUPPL 82136711402 Active Baltazar Childers MD Activ e HYDROCODONE-ACETAMINOPHEN 7.5-325 MG TABS Take 1 tab every 6-8 hour s PRN HYDROCODONE-ACETAMINOPHEN 25643650104 Active Shonna Parker APRN Active NORTRIPTYLINE HCL 50 MG CAPS 1 every night for neuropathy 4 NORTRIPTYLINE HCL 57108321230 Active Baltazar Childers MD Acti ve GABAPENTIN 300 MG CAPS 1 three times a day GABAPE NTIN 42931918160 Active KENDALL Juarez Active GABAPENTIN 300 MG CAPS 1 po qd x 2 days, then 1 po BID x 2 d ays, then 1 po TID GABAPENTIN 21693362543 No Longer Active Baltazar silverman MD Active TRAMADOL HCL 50 MG TABS 1 twice a day as needed for pain TRAMADOL HCL 67366504286 Active Shonna Parker APRN Active NAPROXEN 500 MG TABS 1 tablet by mouth twice daily NAPROXEN 54216995138 No Longer Active Baltazar Childers MD Active PROAIR HFA 108 (90 BASE) MCG/ACT AERS 2 puffs four times a d ay as needed ALBUTEROL SULFATE 88750951567 Active KENDALL Juarez Active DEPO-TESTOSTERONE 200 MG/ML OIL as directed RUFINO TOSTERONE CYPIONATE 10711929192 No Longer Active Baltazar Childers MD Active LIPITOR 20 MG TABS Take one by mouth daily in evening ATORVASTATIN CALCIUM 95009587529 No Longer Active Baltazar Childers MD Activ e CRESTOR 10 MG TABS 1 by mouth every day R OSUVASTATIN CALCIUM 34599319521 No Longer Active Baltazar Childers MD Activ e PHENTERMINE HCL 37.5 MG TABS Take one by mouth daily 2 PHENTERMINE HCL 38624545673 No Longer Active Baltazar Childers MD Activ e ROBAXIN-750 750 MG TABS Take one by mouth daily ME THOCARBAMOL 68827606802 Active Baltazar Childers MD Active TIZANIDINE HCL 4 MG TABS 1 daily as needed for muscle spasm 2011 TIZANIDINE HCL 53149139838 No Longer Active Dawna Salazar RN Active [id number] 50-325-40 MG TABS 1 four time s a day as needed for heacache [id number] 55058159073 Active Shonna Parker APRN Active SUMATRIPTAN SUCCINATE 100 MG TABS 1 tablet by mouth at onset of migraine as needed SUMATRIPTAN SUCCINATE 20487930755 Active Shonna Lucianodian er CLINICAL FACULTY Active LORATADINE 10 MG TABS Take one by mouth daily LORATADINE 32445662456 Active Baltazar Childers MD Active OMEPRAZOLE 20 MG CPDR Take one by mouth daily OMEPRAZOLE 41556625213 Active KENDALL Juarez Active HYDROXYZINE HCL 25 MG TABS Take one by mouth daily HYDROXYZINE HCL 56731052683 Active Baltazar Childers MD Active ALPRAZOLAM 1 MG TABS 1 tablet by mouth daily at bedtime for restles s leg ALPRAZOLAM 55703340968 Active Baltazar Childers MD Active METFORMIN HCL 1000 MG TABS Take one by mouth twice daily METFORMIN HCL 39337092709 Active Baltazar Childers MD Active TIZANIDINE HCL 4 MG TABS 1 daily as needed for muscle spasm 2011 TIZANIDINE HCL 4 MG TABS 756930 TIZANIDINE HCL Inactiv e PHENTERMINE HCL 37.5 MG TABS Take one by mouth daily 2 PHENTERMINE HCL 37.5 MG TABS 797594 PHENTERMINE HCL Inactive CRESTOR 10 MG TABS 1 by mouth every day C RESTOR 10 MG TABS 765291 ROSUVASTATIN CALCIUM Inactive LIPITOR 20 MG TABS Take one by mouth daily in evening LIPITOR 20 MG TABS 701461 ATORVASTATIN CALCIUM Inactive DEPO-TESTOSTERONE 200 MG/ML OIL as directed 8 DEPO-TESTOSTERONE 200 MG/ML OIL 086970 TESTOSTERONE CYPIONATE Inactive NAPROXEN 500 MG TABS 1 tablet by mouth twice daily 201 07/27/22 NAPROXEN 500 MG TABS 733213 NAPROXEN Inactive GABAPENTIN 300 MG CAPS 1 po qd x 2 days, then 1 po BID x 2 d ays, then 1 po TID GABAPENTIN 300 MG CAPS 785615 GABAPENTIN Inact amie ONETOUCH ULTRA BLUE STRP Test twice a day ONETOUCH ULTRA BLUE STRP GLUCOSE BLOOD Inactive NAPROXEN SODIUM 220 MG ORAL TABS 1 three times a day as needed 2 NAPROXEN SODIUM 220 MG ORAL TABS 930589 NAPROXEN SODIUM Inactive TOUJEO SOLOSTAR 300 UNIT/ML SC SOPN 10 units SC daily TOUJEO SOLOSTAR 300 UNIT/ML SC SOPN INSULIN GLARGINE Inac tive SUCRALFATE 1 GM TABS 1 four times a day to coat the stomach 2015 SUCRALFATE 1 GM TABS 213480 SUCRALFATE Inactive Immunizations Vaccine Administration Date Value Standard Floyd cription pneumococcal immunization administered Pneumovax 23 [CVX33] pneumococcal polysaccharide vaccine, 23 valent Seasonal influenza vaccine, injectable, containing preservative, for > 3 years old (Afluria, FluLaval, Fluzone, Fluvirin, Fluarix, Agriflu(>= 18 yo)) Fluzone (>3 yrs.) [RLJ063] Influenza, seasonal, inject able Seasonal influenza vaccine, injectable, containing preservative, for > 3 years old (Afluria, FluLaval, Fluzone, Fluvirin, Fluarix, Agriflu(>= 18 yo)) Fluzone (>3 yrs.) [RLX556] Influenza, seasonal, inject able Vital Signs Date [...] C - Chemistry sodium, serum 139 mmol/L 627-306 4314/07/07 potassium, serum 4.5 mmol/L 3.5-5.2 chloride, serum [...] Panel - Chemistry sodium, serum 143 mmol/L 612-444 3789/12/19 carbon dioxide, venous blood 32.5 mmol/L 21.0-32 .0 potassium, serum 4.9 mmol/L 3.5-5.2 chloride, serum 101 mmol/L 98-107 blood glucose 129 mg/dL 65-110 urea nitrogen, blood 18 mg/dL 7-18 creatinine, serum 1.79 mg/dL 0.55-1.30 alanine aminotransferase (SGPT), serum 34 U/L 12-78 aspartate aminotransferase (SGOT), serum 26 U/L 15-37 calcium, serum 8.9 mg/dL 8.5-10.1 bilirubin, serum, total 0.30 mg/dL 0.00-1.00 cholesterol, serum 214 mg/dL 350-902 1993/12/19 triglyceride, serum, fasting 351 mg/dL 30-200 HDL [...] Panel - Chemistry sodium, serum 141 mmol/L 626-976 4591/08/08 potassium, serum 4.9 mmol/L 3.5-5.2 chloride, serum 101 mmol/L 98-107 carbon dioxide, venous blood 34.1 mmol/L 21.0-32 .0 creatinine, serum 1.98 mg/dL 0.55-1.30 blood glucose 193 mg/dL 65-110 urea nitrogen, blood 30 mg/dL 7-18 calcium, serum 9.8 mg/dL 8.5-10.1 Encounters Code Encounter Date Provider Facility CPT-54083 Level 4 Est. Patient 15:44:38 CDT Shonna Parker APRN [facility] CPT-05158 Level 4 Est. Patient 11:34:17 CDT Baltazar Childers MD [facility] CPT-56417 Level 3 Est. Patient 16:40:40 CDT Baltazar Childers MD [facility] CPT-70231 Level 4 Est. Patient 10:41:24 CDT Baltazar Childers MD [facility] CPT-91310 Level 4 Est. Patient 16:01:48 CDT Baltazar Childers MD [facility] CPT-91753 Level 4 Est. Patient 16:54:07 BUNKER WORKER Baltazar Childers MD [facility] CPT-95343 Level 4 Est. Patient 15:42:12 CDT Baltazar Childers MD [facility] CPT-56904 Level 4 Est. Patient 11:29:55 CDT Baltazar Childers MD [facility] CPT-77975 Level 4 Est. Patient 14:15:19 CDT Baltazar Childers MD [facility] CPT-22456 Level 4 Est. Patient 12:20:13 CDT Baltazar Childers MD [facility] CPT-43909 Level 4 Est. Patient 14:52:45 BUNKER WORKER Baltazar Childers MD [facility] CPT-12493 Level 4 Est. Patient 14:18:34 BUNKER WORKER Baltazar Childers MD [facility] CPT-29696 Level 4 Est. Patient 15:18:29 CDT Baltazar Childers MD [facility] CPT-16832 Level 3 Est. Patient 12:45:34 CDT Baltazar Childers MD [facility] CPT-65947 Level 3 Est. Patient 10:10:11 CDT Baltazar Childers MD [facility] CPT-04967 Level 3 Est. Patient 14:07:50 CDT Baltazar Childers MD [facility] CPT-46713 Level 4 Est. Patient 12:26:10 BUNKER WORKER Baltazar Childers MD [facility] CPT-94946 Level 4 Est. Patient 14:45:38 CDT Baltazar Childers MD [facility] CPT-15058 Level 4 New Patient 12:30:48 CDT Baltazar hinton MD [facility] Procedures Code Procedure Name Date Entry Date Standard Desc ription CPT-61756 Lipid - LAB USE ONLY 17:39:15 BUNKER WORKER 9 CPT-10831 HGBA1C - LAB USE ONLY 17:39:15 BUNKER WORKER CPT-07896 CMP - LAB USE ONLY 17:39:14 BUNKER WORKER CPT-43410 Venipuncture Draw Fee 17:39:14 BUNKER WORKER CPT-12025 First Vx - Ix admin via ID I M or jet injects without counseling by physician 16:55:17 BUNKER WORKER CPT-72361 Fluzone Quadrivalent Intramuscular Suspe nsion 0.5 ML 16:55:17 BUNKER WORKER CPT-86118 Renal Panel - LAB USE ONLY 17:39:20 CDT 201 10/31/07 CPT-05927 CBC - LAB USE ONLY 17:39:20 CDT CPT-83727 Venipuncture Draw Fee 17:39:20 CDT CPT-14496 Venipuncture Draw Fee 14:33:30 CDT CPT-82605 Renal Panel - LAB USE ONLY 14:33:30 CDT 201 10/31/07 CPT-62736 CBC - LAB USE ONLY 14:33:29 CDT CPT-87448 Venipuncture Draw Fee 14:50:21 BUNKER WORKER CPT-93647 Immunization Single Admin 17:35:35 CDT 2014 CPT-26566 Fluzone Quadrivalent preservative free ( >=3yrs.) 17:35:35 CDT CPT-78356 Venipuncture Draw Fee 12:10:27 BUNKER WORKER CPT-26521 Fluzone Quadrivalent Intramuscular Suspe nsion 0.5 ML 10:49:13 CDT CPT-23898 First Vx Component - Ix admi n via ID IM or jet inj without physician counseling 15:17:19 BUNKER WORKER CPT-09642 Pneumovax 23 15:17:19 BUNKER WORKER CPT-21484 Pneumovax 14:52:45 BUNKER WORKER CPT-77358 Venipuncture Draw Fee 14:06:30 BUNKER WORKER CPT-000 Give Appropriate Flu Vaccine 14:18:34 BUNKER WORKER 2 CPT-75154 Administration single or combination vac cine inc oral 14:46:00 BUNKER WORKER CPT-21647 Influenza split virus > age 3 14:46:00 BUNKER WORKER CPT-OV Office Visit 19:13:16 CDT CPT-46349 Zostavax 18:41:56 CDT CPT-49485 Administration single or combination vac cine inc oral 12:56:39 CDT CPT-78772 Zoster Vaccine (Zostavax) 12:56:39 CDT 2012 CPT-33649 Venipuncture Draw Fee 10:58:57 CDT CPT-28243 Sono pelvis non OB uterus ovaries cervix 17:45:04 CDT CPT-96145 Sono retroperitoneal complete kidneys an d bladder 17:14:36 CDT CPT-OV Office Visit 14:59:38 BUNKER WORKER CPT-J1070 Depo Testosterone 100 mg 14:50:13 CDT 03/05 CPT-10935 Abx/Therapy Injection 14:50:13 CDT CPT-61145 Administration single or combination vac cine inc oral 14:34:43 CDT CPT-74811 Influenza split virus > age 3 14:34:43 CDT CPT-J1070 Depo Testosterone 100 mg 17:37:13 CDT 01/11 CPT-41515 Abx/Therapy Injection 17:37:13 CDT CPT-18055 Venipuncture Draw Fee 16:30:13 CDT CPT-74385 Venipuncture Draw Fee 16:29:43 CDT CPT-J1070 Depo Testosterone 100 mg 14:45:38 CDT 01/11
--- OUTSIDE RECORDS SUMMARY | 2019-10-27 12:41 | XMS REPORT | Clinical Summary ---
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 Benign neoplasm of colon PERIPHERAL NEUROPATHY [...] of unspecified type of vessel, [place] or graft OTH NONSPC ABN FINDNG RAD&OTH [...] MISC use 1 daily INSULIN PEN NEEDLE 38319545059 Active Martita Herbert RMA Active TOUJEO SOLOSTAR 300 UNIT/ML SC SOPN 10 units SC daily INSULIN GLARGINE 24087072118 No Longer Active Martita Herbert RMA Active LANTUS SOLOSTAR 100 UNIT/ML SC SOPN 10 units SC daily INSULIN GLARGINE 18142882890 Active KENDALL Juarez Active NAPROXEN SODIUM 220 MG ORAL TABS 1 three times a day as needed 2 NAPROXEN SODIUM 09011571735 No Longer Active Baltazar Childers MD Active ATORVASTATIN CALCIUM 20 MG ORAL TABS Take 1 tab daily ATORVASTATIN CALCIUM 95338350831 Active KENDALL Juarez Active FUROSEMIDE 40 MG TABS Take one by mouth daily FUROSEMIDE 57592768588 Active Baltazar Childers MD Active LISINOPRIL 20 MG TABS Take one by mouth daily at bedtime LISINOPRIL 00153377667 Active Baltazar Childers MD Active ONETOUCH ULTRA BLUE STRP Test twice a day GLUCO SE BLOOD 57591343620 No Longer Active Baltazar Childers MD Active TRUEPLUS LANCETS 33G MISC Test twice a day LANCET S 65750106332 Active KENDALL Juarez Active TRUEDRAW LANCING DEVICE MISC Test twice a day L ANCET DEVICES 18442801126 Active Baltazar Childers MD Active TRUETRACK TEST STRP Test twice a day GLUCOSE BLOO D 16354332348 Active KENDALL Juarez Active TRUETRACK BLOOD GLUCOSE W/DEVICE KIT Test twice a day BLOOD GLUCOSE MONITORING SUPPL 52402955919 Active Baltazar Childers MD Activ e HYDROCODONE-ACETAMINOPHEN 7.5-325 MG TABS Take 1 tab every 6-8 hour s PRN HYDROCODONE-ACETAMINOPHEN 45969291031 Active Baltazar Childers MD Active NORTRIPTYLINE HCL 50 MG CAPS 1 every night for neuropathy 4 NORTRIPTYLINE HCL 33049806237 Active Baltazar Childers MD Acti ve GABAPENTIN 300 MG CAPS 1 three times a day GABAPE NTIN 83152658037 Active Baltazar Childers MD Active GABAPENTIN 300 MG CAPS 1 po qd x 2 days, then 1 po BID x 2 d ays, then 1 po TID GABAPENTIN 62789064989 No Longer Active Baltazar silverman MD Active TRAMADOL HCL 50 MG TABS 1 twice a day as needed for pain TRAMADOL HCL 07156667342 Active Baltazar Childers MD Active NAPROXEN 500 MG TABS 1 tablet by mouth twice daily NAPROXEN 63222544775 No Longer Active Baltazar Childers MD Active PROAIR HFA 108 (90 BASE) MCG/ACT AERS 2 puffs four times a d ay as needed ALBUTEROL SULFATE 90517400542 Active KENDALL Juarez Active DEPO-TESTOSTERONE 200 MG/ML OIL as directed RUFINO TOSTERONE CYPIONATE 48225260725 No Longer Active Baltazar Childers MD Active LIPITOR 20 MG TABS Take one by mouth daily in evening ATORVASTATIN CALCIUM 95147778882 No Longer Active Baltazar Childers MD Activ e CRESTOR 10 MG TABS 1 by mouth every day R OSUVASTATIN CALCIUM 50049545493 No Longer Active Baltazar Childers MD Activ e PHENTERMINE HCL 37.5 MG TABS Take one by mouth daily 2 PHENTERMINE HCL 05499425222 No Longer Active Baltazar Childers MD Activ e ROBAXIN-750 750 MG TABS Take one by mouth daily ME THOCARBAMOL 52736527272 Active Baltazar Childers MD Active TIZANIDINE HCL 4 MG TABS 1 daily as needed for muscle spasm 2011 TIZANIDINE HCL 90378995252 No Longer Active Dawna Salazar RN Active [id number] 50-325-40 MG TABS 1 four time s a day as needed for heacache [id number] 78348481006 Active Baltazar Childers MD Active SUMATRIPTAN SUCCINATE 100 MG TABS 1 tablet by mouth at onset of migraine as needed SUMATRIPTAN SUCCINATE 61959883729 Active KENDALL Juarez Active LORATADINE 10 MG TABS Take one by mouth daily LORATADINE 58876766966 Active Baltazar Childers MD Active OMEPRAZOLE 20 MG CPDR Take one by mouth daily OMEPRAZOLE 89890589881 Active [place] Fitzgeralder Active HYDROXYZINE HCL 25 MG TABS Take one by mouth daily HYDROXYZINE HCL 63457204499 Active Baltazar Childers MD Active GLIPIZIDE 10 MG TABS 1 tablet by mouth twice daily GLIPIZIDE 95173636890 Active Baltazar Childers MD Active ALPRAZOLAM 1 MG TABS 1 tablet by mouth daily at bedtime for restles s leg ALPRAZOLAM 60565058716 Active Baltazar Childers MD Active METFORMIN HCL 1000 MG TABS Take one by mouth twice daily METFORMIN HCL 04809906581 Active Baltazar Childers MD Active TIZANIDINE HCL 4 MG TABS 1 daily as needed for muscle spasm 2011 TIZANIDINE HCL 4 MG TABS 045757 TIZANIDINE HCL Inactiv e PHENTERMINE HCL 37.5 MG TABS Take one by mouth daily 2 PHENTERMINE HCL 37.5 MG TABS 464072 PHENTERMINE HCL Inactive CRESTOR 10 MG TABS 1 by mouth every day C RESTOR 10 MG TABS 673295 ROSUVASTATIN CALCIUM Inactive LIPITOR 20 MG TABS Take one by mouth daily in evening LIPITOR 20 MG TABS 282988 ATORVASTATIN CALCIUM Inactive DEPO-TESTOSTERONE 200 MG/ML OIL as directed 8 DEPO-TESTOSTERONE 200 MG/ML OIL 314102 TESTOSTERONE CYPIONATE Inactive NAPROXEN 500 MG TABS 1 tablet by mouth twice daily 201 07/27/22 NAPROXEN 500 MG TABS 418402 NAPROXEN Inactive GABAPENTIN 300 MG CAPS 1 po qd x 2 days, then 1 po BID x 2 d ays, then 1 po TID GABAPENTIN 300 MG CAPS 619425 GABAPENTIN Inact amie ONETOUCH ULTRA BLUE STRP Test twice a day ONETOUCH ULTRA BLUE STRP GLUCOSE BLOOD Inactive NAPROXEN SODIUM 220 MG ORAL TABS 1 three times a day as needed 2 NAPROXEN SODIUM 220 MG ORAL TABS 149839 NAPROXEN SODIUM Inactive TOUJEO SOLOSTAR 300 UNIT/ML [...] Fluarix, Agriflu(>= 18 yo)) Fluzone (>3 yrs.) [[id number]] Influenza, seasonal, inject able Seasonal influenza vaccine, injectable, containing preservative, for > 3 years old (Afluria, FluLaval, Fluzone, Fluvirin, Fluarix, Agriflu(>= 18 yo)) Fluzone (>3 yrs.) [[id number]] Influenza, seasonal, inject able Vital Signs Date [...] C - Chemistry sodium, serum 139 mmol/L 024-541 9188/07/07 potassium, serum 4.5 mmol/L 3.5-5.2 chloride, serum [...] 7.9 % 4.3-6.0 sodium, serum 139 mmol/L 188-132 9502/02/04 potassium, serum 5.4 mmol/L 3.5-5.2 chloride, serum [...] Panel - Chemistry sodium, serum 138 mmol/L 500-785 8112/11/23 carbon dioxide, venous blood 32.4 mmol/L 21.0-32 .0 potassium, serum 5.7 mmol/L 3.5-5.2 chloride, serum 98 mmol/L 98-107 blood glucose 136 mg/dL 65-110 urea nitrogen, blood 18 mg/dL 7-18 creatinine, serum 1.71 mg/dL 0.55-1.30 alanine aminotransferase (SGPT), serum 71 U/L 12-78 aspartate aminotransferase (SGOT), serum 34 U/L 15-37 calcium, serum 9.4 mg/dL 8.5-10.1 bilirubin, serum, total 0.40 mg/dL 0.00-1.00 cholesterol, serum 405 mg/dL 062-904 8328/11/23 triglyceride, serum, fasting 709 mg/dL 30-200 HDL [...] Panel - Chemistry sodium, serum 141 mmol/L 998-964 7358/08/08 potassium, serum 4.9 mmol/L 3.5-5.2 chloride, serum [...] mg/dL Encounters Code Encounter Date Provider Facility CPT-44776 Level 3 Est. Patient 16:40:40 CDT Baltazar Childers MD [facility] CPT-67452 Level 4 Est. Patient 10:41:24 CDT Baltazar Childers MD [facility]-29090 Level 4 Est. Patient 16:01:48 CDT Baltazar Childers MD [facility]-40940 Level 4 Est. 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 Patient 15:42:12 CDT Baltazar Childers MD [facility] CPT-27809 Level 4 Est. Patient 11:29:55 CDT Baltazar Childers MD [facility]-44457 Level 4 Est. Patient 14:15:19 CDT Baltazar Childers MD [facility] CPT-88917 Level 4 Est. Patient 12:20:13 CDT Baltazar Childers MD [facility]-59831 Level 4 Est. Patient 14:52:45 K[employer]ELGUHR REGENERATOR OPERATOR Baltazar Childers MD [facility] CPT-62723 Level 4 Est. Patient 14:18:34 KIESELGUHR REGENERATOR OPERATOR Baltazar Childers MD [facility]-69683 Level 4 Est. Patient 15:18:29 CDT Baltazar Childers MD [facility] CPT-16367 Level 3 Est. Patient 12:45:34 CDT Baltazar Childers MD [facility] CPT-43023 Level 3 Est. Patient 10:10:11 CDT Baltazar Childers MD [facility]-97376 Level 3 Est. Patient 14:07:50 CDT Baltazar Childers MD [facility]-74150 Level 4 Est. Patient 12:26:10 K[employer]ELGU[employer] REGENERATOR OPERATOR Baltazar Childers MD [facility]-61701 Level 4 Est. Patient 14:45:38 CDT Baltazar Childers MD [facility] CPT-36578 Level 4 New Patient 12:30:48 CDT Baltazar hinton MD [facility] Procedures Code Procedure Name Date Entry Date Standard Desc ription CPT-99834 Renal Panel - LAB USE ONLY 17:39:20 CDT 201 10/31/07 CPT-66279 CBC - LAB USE ONLY 17:39:20 CDT CPT-47019 Venipuncture Draw Fee 17:39:20 CDT CPT-99465 Venipuncture Draw Fee 14:33:30 CDT CPT-01612 Renal Panel - LAB USE ONLY 14:33:30 CDT 201 10/31/07 CPT-70956 CBC - LAB USE ONLY 14:33:29 CDT CPT-28479 Venipuncture Draw Fee 14:50:21 KIESELGUHR REGENERATOR OPERATOR CPT-33318 Immunization Single Admin 17:35:35 CDT 2014 CPT-97563 Fluzone Quadrivalent preservative free ( >=3yrs.) 17:35:35 CDT CPT-85814 Venipuncture Draw Fee 12:10:27 KIESELGUHR REGENERATOR OPERATOR CPT-36572 Fluzone Quadrivalent Intramuscular Suspe nsion 0.5 ML 10:49:13 CDT CPT-19002 First Vx Component - Ix admi n via ID IM or jet inj without physician counseling 15:17:19 KIESELGUHR REGENERATOR OPERATOR CPT-60804 Pneumovax 23 15:17:19 KIESELGUHR REGENERATOR OPERATOR CPT-90441 Pneumovax 14:52:45 KIESELGUHR REGENERATOR OPERATOR CPT-61591 Venipuncture Draw Fee 14:06:30 KIESELGUHR REGENERATOR OPERATOR CPT-000 Give Appropriate Flu Vaccine 14:18:34 KIESELGUHR REGENERATOR OPERATOR 2 013/11/04 CPT-96306 Administration single or combination vac cine inc oral 14:46:00 KIESELGUHR REGENERATOR OPERATOR CPT-42884 Influenza split virus > age 3 14:46:00 KIESELGUHR REGENERATOR OPERATOR CPT-OV Office Visit 19:13:16 CDT CPT-20250 Zostavax 18:41:56 CDT CPT-60764 Administration single or combination vac cine inc oral 12:56:39 CDT CPT-46466 Zoster Vaccine (Zostavax) 12:56:39 CDT 2012 CPT-68005 Venipuncture Draw Fee 10:58:57 CDT CPT-45884 Sono pelvis non OB uterus ovaries cervix 17:45:04 CDT CPT-19053 Sono retroperitoneal complete kidneys an d bladder 17:14:36 CDT CPT-OV Office Visit 14:59:38 KIESELGUHR REGENERATOR OPERATOR CPT-J1070 Depo Testosterone 100 mg 14:50:13 CDT 03/05 CPT-61924 Abx/Therapy Injection 14:50:13 CDT CPT-25827 Administration single or combination vac cine inc oral 14:34:43 CDT CPT-74703 Influenza split virus > age 3 14:34:43 CDT CPT-J1070 Depo Testosterone 100 mg 17:37:13 CDT 01/11 CPT-84924 Abx/Therapy Injection 17:37:13 CDT CPT-64451 Venipuncture Draw Fee 16:30:13 CDT CPT-64381 Venipuncture Draw Fee 16:29:43 CDT CPT-J1070 Depo Testosterone 100 mg 14:45:38 CDT 01/11
--- OUTSIDE RECORDS SUMMARY | 2019-10-27 12:41 | XMS REPORT | Clinical Summary ---
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 Benign neoplasm of colon PERIPHERAL NEUROPATHY [...] 1 tablet daily for 4 days AZITHROMYCIN 05482678392 No Longer A ctive Baltazar Childers MD Active LANTUS SOLOSTAR 100 UNIT/ML SUBCUTANEOUS SOLUTION PEN- INJECTOR 30 units SC daily INSULIN GLARGINE 50603672978 Active Baltazar Childers MD Active AMLODIPINE BESYLATE 5 MG ORAL TABLET 1 tab daily for HTN AMLODIPINE BESYLATE 58590346677 Active Baltazar Childers MD Active SYNTHROID 100 MCG ORAL TABLET 1 tablet by mouth daily LEVOTHYROXINE SODIUM 29120355654 Active Baltazar Childers MD Active GLIPIZIDE 10 MG ORAL TABLET take 2 tablets twice daily GLIPIZIDE 31148477032 Active Baltazar Childers MD Active SUCRALFATE 1 GM ORAL TABLET 1 four times a day to coat the stoma ch SUCRALFATE 58696771840 No Longer Active Baltazar Childers MD Active PEN NEEDLES 31G X 6 MM use 1 daily INSULIN PEN NE EDLE 99770508459 Active KENDALL Juarez Active TOUJEO SOLOSTAR 300 UNIT/ML SUBCUTANEOUS SOLUTION PEN- INJECTOR 10 units SC daily INSULIN GLARGINE 83639609978 No Longer Active Rola ARGUETA Active NAPROXEN SODIUM 220 MG ORAL TABLET 1 three times a day as needed NAPROXEN SODIUM 62216552691 No Longer Active Baltazar Childers MD Active ATORVASTATIN CALCIUM 20 MG ORAL TABLET Take 1 tab daily ATORVASTATIN CALCIUM 59282131523 Active Baltazar Childers MD A ctive FUROSEMIDE 40 MG ORAL TABLET Take one by mouth daily FUROSEMIDE 02568001167 Active Jessy Arellano LPN Active LISINOPRIL 20 MG ORAL TABLET Take one by mouth daily at bedtime LISINOPRIL 47090133073 No Longer Active Baltazar Childers MD Active ONETOUCH ULTRA BLUE IN VITRO STRIP Test twice a day 07/11/11 GLUCOSE BLOOD 96168740206 No Longer Active Baltazar Childers MD Acti ve TRUEPLUS LANCETS 33G Test twice a day LANCETS 2040194 8764 Active KENDALL Juarez Active TRUEDRAW LANCING DEVICE Test twice a day LANCET DEVICES 94122641530 Active Baltazar Childers MD Active TRUETRACK TEST IN VITRO STRIP Test twice a day GLUCOSE BLOOD 45099102977 Active KENDALL Juarez Active TRUETRACK BLOOD GLUCOSE w/Device KIT Test twice a day BLOOD GLUCOSE MONITORING SUPPL 55679598153 Active Baltazar Childers MD Activ e HYDROCODONE-ACETAMINOPHEN 7.5-325 MG ORAL TABLET Take 1 tab every 6-8 hours PRN HYDROCODONE-ACETAMINOPHEN 02607610066 Active Baltazar Nickerson MD Active NORTRIPTYLINE HCL 50 MG ORAL CAPSULE 1 every night for neuropathy 2 NORTRIPTYLINE HCL 32223156039 Active Baltazar Childers MD Acti ve GABAPENTIN 300 MG ORAL CAPSULE 1 three times a day GABAPENTIN 15849140301 Active Baltazar Childers MD Active GABAPENTIN 300 MG ORAL CAPSULE 1 po qd x 2 days, then 1 po BID x 2 days, then 1 po TID GABAPENTIN 07354402423 No Longer Active Baltazar Childers MD Active TRAMADOL HCL 50 MG ORAL TABLET 1 twice a day as needed for pain 201 07/27/28 TRAMADOL HCL 93983653106 Active Baltazar Childers MD Active NAPROXEN 500 MG ORAL TABLET 1 tablet by mouth twice daily NAPROXEN 56184054726 No Longer Active Baltazar Childers MD Active PROAIR HFA 108 (90 Base) MCG/ACT INHALATION AEROSOL SO LUTION 2 puffs four times a day as needed ALBUTEROL SULFATE 91817581100 Active Paul Childers MD Active DEPO-TESTOSTERONE 200 MG/ML INTRAMUSCULAR SOLUTION as directed TESTOSTERONE CYPIONATE 27023492306 No Longer Active Baltazar Childers MD Active LIPITOR 20 MG ORAL TABLET Take one by mouth daily in evening ATORVASTATIN CALCIUM 58664045269 No Longer Active Baltazar Childers MD Active CRESTOR 10 MG ORAL TABLET 1 by mouth every day ROSUVASTATIN CALCIUM 00738871236 No Longer Active Baltazar Childers MD Active PHENTERMINE HCL 37.5 MG ORAL TABLET Take one by mouth daily PHENTERMINE HCL 68814363442 No Longer Active Baltazar Childers MD Ac tive ROBAXIN-750 750 MG ORAL TABLET Take one by mouth daily METHOCARBAMOL 33725500238 Active Baltazar Childers MD Active TIZANIDINE HCL 4 MG ORAL TABLET 1 daily as needed for muscle spa sm TIZANIDINE HCL 09038809958 No Longer Active Dawna Martin RN Active [id number]-[id number] 50-325-40 MG ORAL TABLET 1 fo ur times a day as needed for heacache [id number]-[id number]-[id number] 64713370236 Active Baltazar Childers MD Active SUMATRIPTAN SUCCINATE 100 MG ORAL TABLET 1 tablet by m outh at onset of migraine as needed SUMATRIPTAN SUCCINATE 47998121674 Active Baltazar Nickerson MD Active LORATADINE 10 MG ORAL TABLET Take one by mouth daily LORATADINE 85086654257 Active Baltazar Childers MD Active OMEPRAZOLE 20 MG ORAL CAPSULE DELAYED RELEASE Take one by mouth jostin ly OMEPRAZOLE 11527874755 Active Baltazar Childers MD Active HYDROXYZINE HCL 25 MG ORAL TABLET Take one by mouth daily HYDROXYZINE HCL 36892021288 Active Baltazar Childers MD Active ALPRAZOLAM 1 MG ORAL TABLET 1 [facility]PR[facility] 07082661551 Active Baltazar Childers MD Active METFORMIN HCL 1000 MG ORAL TABLET Take one by mouth twice daily METFORMIN HCL 84475015164 Active Baltazar Childers MD Active TIZANIDINE HCL 4 MG ORAL TABLET 1 daily as needed for muscle spa sm TIZANIDINE HCL 4 MG ORAL TABLET 030979 TIZANIDINE HCL Inactive PHENTERMINE HCL 37.5 MG ORAL TABLET Take one by mouth daily PHENTERMINE HCL 37.5 MG ORAL TABLET 700200 PHENTERMINE HCL Inac tive CRESTOR 10 MG ORAL TABLET 1 by mouth every day CRESTOR 10 MG ORAL TABLET 819802 ROSUVASTATIN CALCIUM Inactive LIPITOR 20 MG ORAL TABLET Take one by mouth daily in evening LIPITOR 20 MG ORAL TABLET 458462 ATORVASTATIN CALCIUM Inactive DEPO-TESTOSTERONE 200 MG/ML INTRAMUSCULAR SOLUTION as directed DEPO-TESTOSTERONE 200 MG/ML INTRAMUSCULAR SOLUTION 117830 RUFINO TOSTERONE CYPIONATE Inactive NAPROXEN 500 MG ORAL TABLET 1 tablet by mouth twice daily NAPROXEN 500 MG ORAL TABLET 744676 NAPROXEN Inactive GABAPENTIN 300 MG ORAL CAPSULE 1 po qd x 2 days, then 1 po BID x 2 days, then 1 po TID GABAPENTIN 300 MG ORAL CAPSULE 836951 GABAP ENTIN Inactive ONETOUCH ULTRA BLUE IN VITRO STRIP Test twice a day 07/11/11 ONETOUCH ULTRA BLUE IN VITRO STRIP GLUCOSE BLOOD Inact amie NAPROXEN SODIUM 220 MG ORAL TABLET 1 three times a day as needed NAPROXEN SODIUM 220 MG ORAL TABLET 425663 NAPROXEN SODI UM Inactive TOUJEO SOLOSTAR 300 UNIT/ML SUBCUTANEOUS SOLUTION PEN- INJECTOR 10 units SC daily TOUJEO SOLOSTAR 300 UNIT/ML SUBCUTANEOUS SOLUTION PEN-INJECTOR INSULIN GLARGINE Inactive SUCRALFATE 1 GM ORAL TABLET 1 four times a day to coat the stoma ch SUCRALFATE 1 GM ORAL TABLET 006993 SUCRALFATE Inac tive ZITHROMAX Z-ISAIAS 250 MG ORAL TABLET Take two tablets to day and then 1 tablet daily for 4 days ZITHROMAX Z-ISAIAS 250 MG ORAL TAB LET 410288 AZITHROMYCIN Inactive Immunizations Vaccine Administration Date Value Standard Floyd cription pneumococcal immunization administered Pneumovax 23 [CVX33] pneumococcal polysaccharide vaccine, 23 valent Seasonal influenza vaccine, injectable, containing preservative, for > 3 years old (Afluria, FluLaval, Fluzone, Fluvirin, Fluarix, Agriflu(>= 18 yo)) Fluzone (>3 yrs.) [RFD054] Influenza, seasonal, inject able Seasonal influenza vaccine, injectable, containing preservative, for > 3 years old (Afluria, FluLaval, Fluzone, Fluvirin, Fluarix, Agriflu(>= 18 yo)) Fluzone (>3 yrs.) [RVL933] Influenza, seasonal, inject able Vital Signs Date [...] d blood pressure, diastolic 48 mm[Hg] BP samleron blood pressure, systolic 95 mm[Hg] BP sys [...] - Chem istry sodium, serum 139 mmol/L 293-990 4300/10/03 potassium, serum 4.7 mmol/L 3.5-5.2 chloride, serum 98 mmol/L 98-107 carbon dioxide, venous blood 28.7 mmol/L 21.0-32 .0 blood glucose 218 mg/dL 65-110 calcium, serum 9.8 mg/dL 8.5-10.1 urea nitrogen, blood 19 mg/dL 7-18 creatinine, serum 1.68 mg/dL 0.60-1.30 Lab Report: Basic Metabolic Panel, HGBA1 C - Chemistry sodium, serum 143 mmol/L 704-407 6724/06/19 potassium, serum 5.9 mmol/L 3.5-5.2 chloride, serum 105 mmol/L 98-107 carbon dioxide, venous blood 30.2 mmol/L 21.0-32 .0 blood glucose 189 mg/dL 65-110 calcium, serum 9.7 mg/dL 8.5-10.1 urea nitrogen, blood 37 mg/dL 7-18 creatinine, serum 2.11 mg/dL 0.55-1.30 hemoglobin A1C, blood, as % of total hemoglobin 8.2 % 4.3-6.0 Lab Report: CBC, Renal Panel - Chemistry sodium, serum 142 mmol/L 938-188 7325/08/11 potassium, serum 4.8 mmol/L 3.5-5.2 chloride, serum [...] Panel - Chemistry sodium, serum 143 mmol/L 271-870 4363/12/19 carbon dioxide, venous blood 32.5 mmol/L 21.0-32 .0 potassium, serum 4.9 mmol/L 3.5-5.2 chloride, serum 101 mmol/L 98-107 blood glucose 129 mg/dL 65-110 urea nitrogen, blood 18 mg/dL 7-18 creatinine, serum 1.79 mg/dL 0.55-1.30 alanine aminotransferase (SGPT), serum 34 U/L 12-78 aspartate aminotransferase (SGOT), serum 26 U/L 15-37 calcium, serum 8.9 mg/dL 8.5-10.1 bilirubin, serum, total 0.30 mg/dL 0.00-1.00 cholesterol, serum 214 mg/dL 755-697 1375/12/19 triglyceride, serum, fasting 351 mg/dL 30-200 HDL [...] 4.3-6.0 Encounters Code Encounter Date Provider Facility CPT-76503 Level 4 Est. Patient 12:25:11 CDT Baltazar Childers MD [facility]-52612 Level 4 Est. Patient 14:22:31 CDT Baltazar Childers MD [facility]-35941 Level 4 Est. Patient 15:44:38 CDT Shonna Elena CASTELLANOS [facility] CPT-39831 Level 4 Est. Patient 11:34:17 CDT Baltazar Childers MD [facility]-07252 Level 3 Est. Patient 16:40:40 CDT Baltazar Childers MD [facility]-73301 Level 4 Est. Patient 10:41:24 CDT Baltazar Childers MD [facility]-59981 Level 4 Est. Patient 16:01:48 CDT Baltazar Childers MD [facility]-64888 Level 4 Est. Patient 16:54:07 FEATHER SAWYER Baltazar Childers MD [facility]-02762 Level 4 Est. Patient 15:42:12 CDT Baltazar Childers MD [facility] CPT-51245 Level 4 Est. Patient 11:29:55 CDT Baltazar Childers MD [facility]-79773 Level 4 Est. Patient 14:15:19 CDT Baltazar Childers MD [facility] CPT-30855 Level 4 Est. Patient 12:20:13 CDT Baltazar Childers MD [facility] CPT-82843 Level 4 Est. Patient 14:52:45 FEATHER SAWYER Baltazar Childers MD [facility] CPT-70560 Level 4 Est. Patient 14:18:34 FEATHER SAWYER Baltazar Childers MD [facility]-40913 Level 4 Est. Patient 15:18:29 CDT Baltazar Childers MD [facility] CPT-56752 Level 3 Est. Patient 12:45:34 CDT Baltazar Childers MD [facility] CPT-61030 Level 3 Est. Patient 10:10:11 CDT Baltazar Childers MD [facility] CPT-96388 Level 3 Est. Patient 14:07:50 CDT Baltazar Childers MD [facility] CPT-03301 Level 4 Est. Patient 12:26:10 FEATHER SAWYER Baltazar Childers MD [facility] CPT-08615 Level 4 Est. Patient 14:45:38 CDT Baltazar Childers MD [facility] CPT-61560 Level 4 New Patient 12:30:48 CDT Baltazar hinton MD [facility] Procedures Code Procedure Name Date Entry Date Standard Desc ription CPT-35329 First Vx - Ix admin via ID I M or jet injects without counseling by physician 13:08:59 CDT CPT-64082 Fluzone Quadrivalent Intramuscular Suspe nsion 0.5 ML 13:08:59 CDT CPT-93894 Venipuncture Draw Fee 12:04:12 CDT CPT-04547 Lipid - LAB USE ONLY 17:39:15 FEATHER SAWYER 9 CPT-44878 HGBA1C - LAB USE ONLY 17:39:15 FEATHER SAWYER CPT-57379 CMP - LAB USE ONLY 17:39:14 FEATHER SAWYER CPT-48970 Venipuncture Draw Fee 17:39:14 FEATHER SAWYER CPT-90689 First Vx - Ix admin via ID I M or jet injects without counseling by physician 16:55:17 FEATHER SAWYER CPT-21792 Fluzone Quadrivalent Intramuscular Suspe nsion 0.5 ML 16:55:17 FEATHER SAWYER CPT-56801 Renal Panel - LAB USE ONLY 17:39:20 CDT 201 10/31/07 CPT-98077 CBC - LAB USE ONLY 17:39:20 CDT CPT-66172 Venipuncture Draw Fee 17:39:20 CDT CPT-71030 Venipuncture Draw Fee 14:33:30 CDT CPT-25453 Renal Panel - LAB USE ONLY 14:33:30 CDT 201 10/31/07 CPT-92126 CBC - LAB USE ONLY 14:33:29 CDT CPT-72965 Venipuncture Draw Fee 14:50:21 FEATHER SAWYER CPT-15147 Immunization Single Admin 17:35:35 CDT 2014 CPT-97041 Fluzone Quadrivalent preservative free ( >=3yrs.) 17:35:35 CDT CPT-02674 Venipuncture Draw Fee 12:10:27 FEATHER SAWYER CPT-47818 Fluzone Quadrivalent Intramuscular Suspe nsion 0.5 ML 10:49:13 CDT CPT-18221 First Vx Component - Ix admi n via ID IM or jet inj without physician counseling 15:17:19 FEATHER SAWYER CPT-78578 Pneumovax 23 15:17:19 FEATHER SAWYER CPT-91933 Pneumovax 14:52:45 FEATHER SAWYER CPT-07522 Venipuncture Draw Fee 14:06:30 FEATHER SAWYER CPT-000 Give Appropriate Flu Vaccine 14:18:34 FEATHER SAWYER 2 CPT-81634 Administration single or combination vac cine inc oral 14:46:00 FEATHER SAWYER CPT-79422 Influenza split virus > age 3 14:46:00 FEATHER SAWYER CPT-OV Office Visit 19:13:16 CDT CPT-51475 Zostavax 18:41:56 CDT CPT-88461 Administration single or combination vac cine inc oral 12:56:39 CDT CPT-01238 Zoster Vaccine (Zostavax) 12:56:39 CDT 2012 CPT-39057 Venipuncture Draw Fee 10:58:57 CDT CPT-36221 Sono pelvis non OB uterus ovaries cervix 17:45:04 CDT CPT-08730 Sono retroperitoneal complete kidneys an d bladder 17:14:36 CDT CPT-OV Office Visit 14:59:38 FEATHER SAWYER CPT-J1070 Depo Testosterone 100 mg 14:50:13 CDT 03/05 CPT-61491 Abx/Therapy Injection 14:50:13 CDT CPT-13905 Administration single or combination vac cine inc oral 14:34:43 CDT CPT-34447 Influenza split virus > age 3 14:34:43 CDT CPT-J1070 Depo Testosterone 100 mg 17:37:13 CDT 01/11 CPT-50899 Abx/Therapy Injection 17:37:13 CDT CPT-34149 Venipuncture Draw Fee 16:30:13 CDT CPT-78935 Venipuncture Draw Fee 16:29:43 CDT CPT-J1070 Depo Testosterone 100 mg 14:45:38 CDT 01/11
--- OUTSIDE RECORDS SUMMARY | 2019-10-27 12:41 | XMS REPORT | Clinical Summary ---
Author Author Abhishek, Elba Lance [facility] Address Unknown Phone Unavailable Allergies, [...] of status migrainosus HYPERLIPIDEMIA 272.4 Active Baltazar Chliders MD Other and unspecified hyperlipidemia CARPAL TUNNEL SYNDROME 354.0 Active Baltazar silverman MD Carpal tunnel syndrome OBESITY 278.00 Active Baltazar Childers MD Obesity, unspecified ADD 314.00 Active Baltazar Childers MD Attention deficit disorder of childhood without mention of hyperactivity DECREASED LIBIDO 799.81 Active Baltazar Wayne Decreased libido COLON POLYPS 211.3 Resolved Lolis Thomas WHIPPER BEATER Benign neoplasm of colon PERIPHERAL NEUROPATHY 356.9 [...] Test twice a day GLUCO SE BLOOD 33179643971 No Longer Active Baltazar Childers MD Active TRUEPLUS LANCETS 33G MISC Test twice a day LANCET S 99527582824 Active Baltazar Childers MD Active TRUEDRAW LANCING DEVICE MISC Test twice a day L ANCET DEVICES 10305684776 Active Baltazar Childers MD Active TRUETRACK TEST STRP Test twice a day GLUCOSE BLOO D 33800319039 Active Baltazar Childers MD Active TRUETRACK BLOOD GLUCOSE W/DEVICE KIT Test twice a day BLOOD GLUCOSE MONITORING SUPPL 67758401257 Active Baltazar Childers MD Activ e HYDROCODONE-ACETAMINOPHEN 7.5-325 MG TABS Take 1 tab every 6-8 hour s PRN HYDROCODONE-ACETAMINOPHEN 27906686053 Active Gato Rae MD Active NORTRIPTYLINE HCL 50 MG CAPS 1 every night for neuropathy 4 NORTRIPTYLINE HCL 77046818084 Active Baltazar Childers MD Acti ve GABAPENTIN 300 MG CAPS 1 three times a day GABAPE NTIN 22954728781 Active Baltazar Childers MD Active GABAPENTIN 300 MG CAPS 1 po qd x 2 days, then 1 po BID x 2 d ays, then 1 po TID GABAPENTIN 06603016176 No Longer Active Baltazar silverman MD Active TRAMADOL HCL 50 MG TABS 1 twice a day as needed for pain TRAMADOL HCL 26102078114 Active Baltazar Childers MD Active NAPROXEN 500 MG TABS 1 tablet by mouth twice daily NAPROXEN 16506917376 No Longer Active Baltazar Childers MD Active PROAIR HFA 108 (90 BASE) MCG/ACT AERS 2 puffs four times a d ay as needed ALBUTEROL SULFATE 59813579117 Active Baltaazr Childers MD Active DEPO-TESTOSTERONE 200 MG/ML OIL as directed RUFINO TOSTERONE CYPIONATE 28202863484 No Longer Active Baltazar Childers MD Active LIPITOR 20 MG TABS Take one by mouth daily in evening ATORVASTATIN CALCIUM 70260945498 No Longer Active Baltazar Childers MD Activ e CRESTOR 10 MG TABS 1 by mouth every day R OSUVASTATIN CALCIUM 77687381465 No Longer Active Baltazar Childers MD Activ e PHENTERMINE HCL 37.5 MG TABS Take one by mouth daily 2 PHENTERMINE HCL 40162398836 No Longer Active Baltazar Childers MD Activ e ROBAXIN-750 750 MG TABS Take one by mouth daily ME THOCARBAMOL 73557757876 Active Baltazar Childers MD Active TIZANIDINE HCL 4 MG TABS 1 daily as needed for muscle spasm 2011 TIZANIDINE HCL 73325237192 No Longer Active Dawna Salazar RN Active IYJGWMIAKT-PKHU-YCODCSUQ 50-325-40 MG TABS 1 four time s a day as needed for heacache [id number] 49669469549 Active Baltazar Childers MD Active SUMATRIPTAN SUCCINATE 100 MG TABS 1 tablet by mouth at onset of migraine as needed SUMATRIPTAN SUCCINATE 76402590690 Active Baltazar bynum MD Active LORATADINE 10 MG TABS Take one by mouth daily LORATADINE 14054627400 Active Baltazar Childers MD Active FUROSEMIDE 40 MG TABS Take one by mouth daily FUROSEMIDE 94502443096 Active Baltazar Childers MD Active LISINOPRIL 20 MG TABS Take one by mouth daily at bedtime LISINOPRIL 14789968562 Active Baltazar Childers MD Active OMEPRAZOLE 20 MG CPDR Take one by mouth daily OMEPRAZOLE 84803609473 Active Baltazar Childers MD Active HYDROXYZINE HCL 25 MG TABS Take one by mouth daily HYDROXYZINE HCL 87065479879 Active Dawna Lew Active GLIPIZIDE 10 MG TABS 1 tablet by mouth twice daily GLIPIZIDE 85016840653 Active Baltazar Childers MD Active ALPRAZOLAM 1 MG TABS 1 tablet by mouth daily at bedtime for restles s leg ALPRAZOLAM 25550499430 Active Baltazar Childers MD Active METFORMIN HCL 1000 MG TABS Take one by mouth twice daily METFORMIN HCL 46809909621 Active Baltazar Childers MD Active TIZANIDINE HCL 4 MG TABS 1 daily as needed for muscle spasm 2011 TIZANIDINE HCL 4 MG TABS 296313 TIZANIDINE HCL Inactiv e PHENTERMINE HCL 37.5 MG TABS Take one by mouth daily 2 PHENTERMINE HCL 37.5 MG TABS 744450 PHENTERMINE HCL Inactive CRESTOR 10 MG TABS 1 by mouth every day C RESTOR 10 MG TABS ROSUVASTATIN CALCIUM Inactive LIPITOR 20 MG TABS Take one by mouth daily in evening LIPITOR 20 MG TABS 648765 ATORVASTATIN CALCIUM Inactive DEPO-TESTOSTERONE 200 MG/ML OIL as directed 8 DEPO-TESTOSTERONE 200 MG/ML OIL 643425 TESTOSTERONE CYPIONATE Inactive NAPROXEN 500 MG TABS 1 tablet by mouth twice daily 201 07/27/22 NAPROXEN 500 MG TABS 313708 NAPROXEN Inactive GABAPENTIN 300 MG CAPS 1 po qd x 2 days, then 1 po BID x 2 d ays, then 1 po TID GABAPENTIN 300 MG CAPS 915835 GABAPENTIN Inact amie ONETOUCH ULTRA BLUE STRP Test twice a day ONETOUCH ULTRA BLUE STRP GLUCOSE BLOOD Inactive Immunizations Vaccine Administration Date Value Standard Floyd cription pneumococcal immunization administered Pneumovax 23 [CVX33] pneumococcal polysaccharide vaccine, 23 valent Seasonal influenza vaccine, injectable, containing preservative, for > 3 years old (Afluria, FluLaval, Fluzone, Fluvirin, Fluarix, Agriflu(>= 18 yo)) Fluzone (>3 yrs.) [ZWC208] Influenza, seasonal, inject able Seasonal influenza vaccine, injectable, containing preservative, for > 3 years old (Afluria, FluLaval, Fluzone, Fluvirin, Fluarix, Agriflu(>= 18 yo)) Fluzone (>3 yrs.) [TIP594] Influenza, seasonal, inject able Vital Signs Date [...] - Chem istry sodium, serum 140 mmol/L 596-847 6641/05/05 potassium, serum 4.9 mmol/L 3.5-5.2 chloride, serum [...] Panel - Chemistry sodium, serum 139 mmol/L 034-414 2540/01/20 potassium, serum 5.3 mmol/L 3.5-5.2 chloride, serum [...] mg/g mg/g{creat} 0-29 cholesterol, serum 319 mg/dL 963-906 5370/08/21 triglyceride, serum, fasting 546 mg/dL 30-200 HDL cholesterol, serum 39 mg/dL 32-96 LDL cholesterol, serum 167.00 mg/dL 5.00-130.00 hemoglobin A1C, blood, as % of total hemoglobin 7.7 % 4.3-6.0 sodium, serum 138 mmol/L 610-808 7669/08/21 potassium, serum 4.3 mmol/L 3.5-5.2 chloride, serum [...] 0-19 Encounters Code Encounter Date Provider Facility CPT-85267 Level 4 Est. Patient 11:29:55 CDT Baltazar Childers MD [facility] CPT-57937 Level 4 Est. Patient 14:15:19 CDT Baltazar Childers MD [facility] CPT-30636 Level 4 Est. Patient 12:20:13 CDT Baltazar Childers MD [facility] CPT-52193 Level 4 Est. Patient 14:52:45 TOMBSTONE SETTER Baltazar Childers MD [facility] CPT-21042 Level 4 Est. Patient 14:18:34 TOMBSTONE SETTER Baltazar Childers MD [facility] CPT-68547 Level 4 Est. Patient 15:18:29 CDT Baltazar Childers MD [facility] CPT-70406 Level 3 Est. Patient 12:45:34 CDT Baltazar Childers MD [facility] CPT-64709 Level 3 Est. Patient 10:10:11 CDT Baltazar Childers MD [facility] CPT-12746 Level 3 Est. Patient 14:07:50 CDT Baltazar Childers MD [facility] CPT-94471 Level 4 Est. Patient 12:26:10 TOMBSTONE SETTER Baltazar Childers MD [facility] CPT-07469 Level 4 Est. Patient 14:45:38 CDT Baltazar Childers MD [facility] CPT-20770 Level 4 New Patient 12:30:48 CDT Baltazar hinton MD [facility] Procedures Code Procedure Name Date Entry Date Standard Desc ription CPT-86417 Venipuncture Draw Fee 12:10:27 TOMBSTONE SETTER CPT-53618 Fluzone Quadrivalent Intramuscular Suspe nsion 0.5 ML 10:49:13 CDT CPT-86480 First Vx Component - Ix admi n via ID IM or jet inj without physician counseling 15:17:19 TOMBSTONE SETTER CPT-20980 Pneumovax 15:17:19 TOMBSTONE SETTER CPT-37390 Pneumovax 14:52:45 TOMBSTONE SETTER CPT-55523 Venipuncture Draw Fee 14:06:30 TOMBSTONE SETTER CPT-000 Give Appropriate Flu Vaccine 14:18:34 TOMBSTONE SETTER 2 CPT-99377 Administration single or combination vac cine inc oral 14:46:00 TOMBSTONE SETTER CPT-69485 Influenza split virus > age 3 14:46:00 TOMBSTONE SETTER CPT-OV Office Visit 19:13:16 CDT CPT-59945 Zostavax 18:41:56 CDT CPT-18104 Administration single or combination vac cine inc oral 12:56:39 CDT CPT-09663 Zoster Vaccine (Zostavax) 12:56:39 CDT 2012 CPT-88343 Venipuncture Draw Fee 10:58:57 CDT CPT-27041 Sono pelvis non OB uterus ovaries cervix 17:45:04 CDT CPT-47485 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
--- OUTSIDE RECORDS SUMMARY | 2019-10-27 12:42 | XMS REPORT | Clinical Summary ---
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 GROWER Benign neoplasm of colon PERIPHERAL NEUROPATHY 356.9 [...] ronary atherosclerosis of unspecified type of vessel, [place] or graft OTH NONSPC ABN FINDNG RAD&OTH [...] a day as needed 2 NAPROXEN SODIUM 57705635539 No Longer Active Baltazar Childers MD Active ATORVASTATIN CALCIUM 20 MG ORAL TABS Take 1 tab daily ATORVASTATIN CALCIUM 76292307478 Active KNEDALL Juarez Active FUROSEMIDE 40 MG TABS Take one by mouth daily FUROSEMIDE 33727216087 Active Baltazar Childers MD Active LISINOPRIL 20 MG TABS Take one by mouth daily at bedtime LISINOPRIL 28237073631 Active KENDALL Juarez Active ONETOUCH ULTRA BLUE STRP Test twice a day GLUCO SE BLOOD 73597691710 No Longer Active Baltazar Childers MD Active TRUEPLUS LANCETS 33G MISC Test twice a day LANCET S 23472912913 Active KENDALL Juarez Active TRUEDRAW LANCING DEVICE MISC Test twice a day L ANCET DEVICES 69578613869 Active Baltazar Childers MD Active TRUETRACK TEST STRP Test twice a day GLUCOSE BLOO D 51032615280 Active Baltazar Childers MD Active TRUETRACK BLOOD GLUCOSE W/DEVICE KIT Test twice a day BLOOD GLUCOSE MONITORING SUPPL 19437480380 Active Baltazar Childers MD Activ e HYDROCODONE-ACETAMINOPHEN 7.5-325 MG TABS Take 1 tab every 6-8 hour s PRN HYDROCODONE-ACETAMINOPHEN 05076330025 Active Baltazar Childers MD Active NORTRIPTYLINE HCL 50 MG CAPS 1 every night for neuropathy 4 NORTRIPTYLINE HCL 36167520911 Active Baltazar Childers MD Acti ve GABAPENTIN 300 MG CAPS 1 three times a day GABAPE NTIN 90550626581 Active KENDALL Juarez Active GABAPENTIN 300 MG CAPS 1 po qd x 2 days, then 1 po BID x 2 d ays, then 1 po TID GABAPENTIN 13415467203 No Longer Active Baltazar silverman MD Active TRAMADOL HCL 50 MG TABS 1 twice a day as needed for pain TRAMADOL HCL 39843840825 Active Baltazar Childers MD Active NAPROXEN 500 MG TABS 1 tablet by mouth twice daily NAPROXEN 68790703492 No Longer Active Baltazar Childers MD Active PROAIR HFA 108 (90 BASE) MCG/ACT AERS 2 puffs four times a d ay as needed ALBUTEROL SULFATE 82479408235 Active KENDALL Juarez Active DEPO-TESTOSTERONE 200 MG/ML OIL as directed RUFINO TOSTERONE CYPIONATE 93116886403 No Longer Active Baltazar Childers MD Active LIPITOR 20 MG TABS Take one by mouth daily in evening ATORVASTATIN CALCIUM 73014911500 No Longer Active Baltazar Childers MD Activ e CRESTOR 10 MG TABS 1 by mouth every day R OSUVASTATIN CALCIUM 55920581376 No Longer Active Baltazar Childers MD Activ e PHENTERMINE HCL 37.5 MG TABS Take one by mouth daily 2 PHENTERMINE HCL 76721146028 No Longer Active Baltazar Childers MD Activ e ROBAXIN-750 750 MG TABS Take one by mouth daily ME THOCARBAMOL 86746233481 Active Baltazar Childers MD Active TIZANIDINE HCL 4 MG TABS 1 daily as needed for muscle spasm 2011 TIZANIDINE HCL 66394653356 No Longer Active Dawna Salazar RN Active [id number]-ADOI-GYGBBRZQ 50-325-40 MG TABS 1 four time s a day as needed for heacache BDLZHOOLSL-DXSI-HJRRSTDN 82027431442 Active Baltazar Childers MD Active SUMATRIPTAN SUCCINATE 100 MG TABS 1 tablet by mouth at onset of migraine as needed SUMATRIPTAN SUCCINATE 17839306812 Active KENDALL Juarez Active LORATADINE 10 MG TABS Take one by mouth daily LORATADINE 10028399995 Active Baltazar Childers MD Active OMEPRAZOLE 20 MG CPDR Take one by mouth daily OMEPRAZOLE 42621121510 Active Baltazar Childers MD Active HYDROXYZINE HCL 25 MG TABS Take one by mouth daily HYDROXYZINE HCL 03032967388 Active Baltazar Childers MD Active GLIPIZIDE 10 MG TABS 1 tablet by mouth twice daily GLIPIZIDE 32195026993 Active Bella Suarez APRN Active ALPRAZOLAM 1 MG TABS 1 tablet by mouth daily at bedtime for restles s leg ALPRAZOLAM 89590361239 Active Baltazar Childers MD Active METFORMIN HCL 1000 MG TABS Take one by mouth twice daily METFORMIN HCL 82523184694 Active Baltazar Childers MD Active TIZANIDINE HCL 4 MG TABS 1 daily as needed for muscle spasm 2011 TIZANIDINE HCL 4 MG TABS 596802 TIZANIDINE HCL Inactiv e PHENTERMINE HCL 37.5 MG TABS Take one by mouth daily 2 PHENTERMINE HCL 37.5 MG TABS 118853 PHENTERMINE HCL Inactive CRESTOR 10 MG TABS 1 by mouth every day C RESTOR 10 MG TABS ROSUVASTATIN CALCIUM Inactive LIPITOR 20 MG TABS Take one by mouth daily in evening LIPITOR 20 MG TABS 592089 ATORVASTATIN CALCIUM Inactive DEPO-TESTOSTERONE 200 MG/ML OIL as directed 8 DEPO-TESTOSTERONE 200 MG/ML OIL 729447 TESTOSTERONE CYPIONATE Inactive NAPROXEN 500 MG TABS 1 tablet by mouth twice daily 201 07/27/22 NAPROXEN 500 MG TABS 709025 NAPROXEN Inactive GABAPENTIN 300 MG CAPS 1 po qd x 2 days, then 1 po BID x 2 d ays, then 1 po TID GABAPENTIN 300 MG CAPS 553419 GABAPENTIN Inact amie ONETOUCH ULTRA BLUE STRP Test twice a day ONETOUCH ULTRA BLUE STRP GLUCOSE BLOOD Inactive NAPROXEN SODIUM 220 MG ORAL TABS 1 three times a day as needed 2 NAPROXEN SODIUM 220 MG ORAL TABS 425185 NAPROXEN SODIUM Inactive Immunizations Vaccine Administration Date Value Standard Floyd cription pneumococcal immunization administered Pneumovax 23 [CVX33] pneumococcal polysaccharide vaccine, 23 valent Seasonal influenza vaccine, injectable, containing preservative, for > 3 years old (Afluria, FluLaval, Fluzone, Fluvirin, Fluarix, Agriflu(>= 18 yo)) Fluzone (>3 yrs.) [[id number]] Influenza, seasonal, inject able Seasonal influenza vaccine, injectable, containing preservative, for > 3 years old (Afluria, FluLaval, Fluzone, Fluvirin, Fluarix, Agriflu(>= 18 yo)) Fluzone (>3 yrs.) [CXY164] Influenza, seasonal, inject able Vital Signs Date [...] - Chem istry sodium, serum 140 mmol/L 979-436 2150/05/05 potassium, serum 4.9 mmol/L 3.5-5.2 chloride, serum 99 mmol/L 98-107 carbon dioxide, venous blood 34.3 mmol/L 21.0-32 .0 blood glucose 132 mg/dL 65-110 calcium, serum 10.1 mg/dL 8.5-10.1 urea nitrogen, blood 23 mg/dL 7-18 creatinine, serum 2.00 mg/dL 0.60-1.30 Lab Report: CBC, HGBA1C, Renal Panel - C hemistry hemoglobin A1C, blood, as % of total hemoglobin 7.9 % 4.3-6.0 sodium, serum 139 mmol/L 036-443 6299/02/04 potassium, serum 5.4 mmol/L 3.5-5.2 chloride, serum [...] Panel - Chemistry sodium, serum 138 mmol/L 853-749 6057/11/23 carbon dioxide, venous blood 32.4 mmol/L 21.0-32 .0 potassium, serum 5.7 mmol/L 3.5-5.2 chloride, serum 98 mmol/L 98-107 blood glucose 136 mg/dL 65-110 urea nitrogen, blood 18 mg/dL 7-18 creatinine, serum 1.71 mg/dL 0.55-1.30 alanine aminotransferase (SGPT), serum 71 U/L 12-78 aspartate aminotransferase (SGOT), serum 34 U/L 15-37 calcium, serum 9.4 mg/dL 8.5-10.1 bilirubin, serum, total 0.40 mg/dL 0.00-1.00 cholesterol, serum 405 mg/dL 471-965 0084/11/23 triglyceride, serum, fasting 709 mg/dL 30-200 HDL [...] mg/dL Encounters Code Encounter Date Provider Facility CPT-66810 Level 4 Est. Patient 16:01:48 CDT Baltazar Childers MD [facility] CPT-43586 Level 4 Est. Patient 16:54:07 BURNISHING MACHINE OPERATOR Baltazar Childers MD [facility] CPT-30269 Level 4 Est. Patient 15:42:12 CDT Baltazar Childers MD [facility] CPT-08442 Level 4 Est. Patient 11:29:55 CDT Baltazar Childers MD [facility] CPT-04880 Level 4 Est. Patient 14:15:19 CDT Baltazar Childers MD [facility] CPT-57523 Level 4 Est. Patient 12:20:13 CDT Baltazar Childers MD [facility] CPT-06937 Level 4 Est. Patient 14:52:45 BURNISHING MACHINE OPERATOR Baltazar Childers MD [facility] CPT-68048 Level 4 Est. Patient 14:18:34 BURNISHING MACHINE OPERATOR Baltazar Childers MD [facility] CPT-18153 Level 4 Est. Patient 15:18:29 CDT Baltazar Childers MD [facility] CPT-46471 Level 3 Est. Patient 12:45:34 CDT Baltazar Childers MD [facility] CPT-05852 Level 3 Est. Patient 10:10:11 CDT Baltazar Childers MD [facility] CPT-97147 Level 3 Est. Patient 14:07:50 CDT Baltazar Childers MD [facility] CPT-53262 Level 4 Est. Patient 12:26:10 BURNISHING MACHINE OPERATOR Baltazar Childers MD [facility] CPT-67462 Level 4 Est. Patient 14:45:38 CDT Baltazar Childers MD [facility] CPT-52431 Level 4 New Patient 12:30:48 CDT Baltazar hinton MD [facility] Procedures Code Procedure Name Date Entry Date Standard Desc ription CPT-90002 Venipuncture Draw Fee 14:50:21 BURNISHING MACHINE OPERATOR CPT-02295 Immunization Single Admin 17:35:35 CDT 2014 CPT-64573 Fluzone Quadrivalent preservative free ( >=3yrs.) 17:35:35 CDT CPT-77733 Venipuncture Draw Fee 12:10:27 BURNISHING MACHINE OPERATOR CPT-88303 Fluzone Quadrivalent Intramuscular Suspe nsion 0.5 ML 10:49:13 CDT CPT-65959 First Vx Component - Ix admi n via ID IM or jet inj without physician counseling 15:17:19 BURNISHING MACHINE OPERATOR CPT-05256 Pneumovax 23 15:17:19 BURNISHING MACHINE OPERATOR CPT-79864 Pneumovax 14:52:45 BURNISHING MACHINE OPERATOR CPT-20885 Venipuncture Draw Fee 14:06:30 BURNISHING MACHINE OPERATOR CPT-000 Give Appropriate Flu Vaccine 14:18:34 BURNISHING MACHINE OPERATOR 2 CPT-49081 Administration single or combination vac cine inc oral 14:46:00 BURNISHING MACHINE OPERATOR CPT-71941 Influenza split virus > age 3 14:46:00 BURNISHING MACHINE OPERATOR CPT-OV Office Visit 19:13:16 CDT CPT-13519 Zostavax 18:41:56 CDT CPT-12484 Administration single or combination vac cine inc oral 12:56:39 CDT CPT-14200 Zoster Vaccine (Zostavax) 12:56:39 CDT 2012 CPT-26985 Venipuncture Draw Fee 10:58:57 CDT CPT-53094 Sono pelvis non OB uterus ovaries cervix 17:45:04 CDT CPT-42047 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
--- OUTSIDE RECORDS SUMMARY | 2019-10-27 12:42 | XMS REPORT | Clinical Summary ---
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 TOUJEO SOLOSTAR 300 UNIT/ML SC SOPN 10 units SC daily INSULIN GLARGINE 08840453995 No Longer Active Martita Godinez RMA Active LANTUS SOLOSTAR 100 UNIT/ML SC SOPN 10 units SC daily INSULIN GLARGINE 78674118957 Active Baltazar Childers MD Active NAPROXEN SODIUM 220 MG ORAL TABS 1 three times a day as needed 2 NAPROXEN SODIUM 09197327954 No Longer Active Baltazar Childers MD Active ATORVASTATIN CALCIUM 20 MG ORAL TABS Take 1 tab daily ATORVASTATIN CALCIUM 28039258657 Active Baltazar Childers MD Active FUROSEMIDE 40 MG TABS Take one by mouth daily FUROSEMIDE 42846850813 Active Baltazar Childers MD Active LISINOPRIL 20 MG TABS Take one by mouth daily at bedtime LISINOPRIL 29768151396 Active Baltazar Childers MD Active ONETOUCH ULTRA BLUE STRP Test twice a day GLUCO SE BLOOD 53606255222 No Longer Active Baltazar Childers MD Active TRUEPLUS LANCETS 33G MISC Test twice a day LANCET S 18045069382 Active KENDALL Juarez Active TRUEDRAW LANCING DEVICE MISC Test twice a day L ANCET DEVICES 69189864956 Active Baltazar Childers MD Active TRUETRACK TEST STRP Test twice a day GLUCOSE BLOO D 37668939821 Active KENDALL Juarez Active TRUETRACK BLOOD GLUCOSE W/DEVICE KIT Test twice a day BLOOD GLUCOSE MONITORING SUPPL 53789838721 Active Baltazar Childers MD Activ e HYDROCODONE-ACETAMINOPHEN 7.5-325 MG TABS Take 1 tab every 6-8 hour s PRN HYDROCODONE-ACETAMINOPHEN 58706869229 Active Baltazar Childers MD Active NORTRIPTYLINE HCL 50 MG CAPS 1 every night for neuropathy 4 NORTRIPTYLINE HCL 21235643434 Active Baltazar Childers MD Acti ve GABAPENTIN 300 MG CAPS 1 three times a day GABAPE NTIN 05692292126 Active Baltazar Childers MD Active GABAPENTIN 300 MG CAPS 1 po qd x 2 days, then 1 po BID x 2 d ays, then 1 po TID GABAPENTIN 83864431076 No Longer Active Baltazar silverman MD Active TRAMADOL HCL 50 MG TABS 1 twice a day as needed for pain TRAMADOL HCL 56318329494 Active Baltazar Childers MD Active NAPROXEN 500 MG TABS 1 tablet by mouth twice daily NAPROXEN 39507084941 No Longer Active Baltazar Childers MD Active PROAIR HFA 108 (90 BASE) MCG/ACT AERS 2 puffs four times a d ay as needed ALBUTEROL SULFATE 34398605152 Active KENDALL Juarez Active DEPO-TESTOSTERONE 200 MG/ML OIL as directed RUFINO TOSTERONE CYPIONATE 33571897824 No Longer Active Baltazar Childers MD Active LIPITOR 20 MG TABS Take one by mouth daily in evening ATORVASTATIN CALCIUM 75724531022 No Longer Active Baltazar Childers MD Activ e CRESTOR 10 MG TABS 1 by mouth every day R OSUVASTATIN CALCIUM 43420914164 No Longer Active Baltazar Childers MD Activ e PHENTERMINE HCL 37.5 MG TABS Take one by mouth daily 2 PHENTERMINE HCL 39948609428 No Longer Active Baltazar Childers MD Activ e ROBAXIN-750 750 MG TABS Take one by mouth daily ME THOCARBAMOL 83617347488 Active Baltazar Childers MD Active TIZANIDINE HCL 4 MG TABS 1 daily as needed for muscle spasm 2011 TIZANIDINE HCL 65590750220 No Longer Active Dawna Salazar RN Active XHECENTBCC-ZZNZ-RWTFVRSE 50-325-40 MG TABS 1 four time s a day as needed for heacache [id number] 74101654601 Active Baltazar Childers MD Active SUMATRIPTAN SUCCINATE 100 MG TABS 1 tablet by mouth at onset of migraine as needed SUMATRIPTAN SUCCINATE 09591856698 Active Baltazar bynum MD Active LORATADINE 10 MG TABS Take one by mouth daily LORATADINE 58027464432 Active Baltazar Childers MD Active OMEPRAZOLE 20 MG CPDR Take one by mouth daily OMEPRAZOLE 90062951276 Active Baltazar Childers MD Active HYDROXYZINE HCL 25 MG TABS Take one by mouth daily HYDROXYZINE HCL 37921274136 Active Baltazar Childers MD Active GLIPIZIDE 10 MG TABS 1 tablet by mouth twice daily GLIPIZIDE 48143337851 Active Baltazar Childers MD Active ALPRAZOLAM 1 MG TABS 1 tablet by mouth daily at bedtime for restles s leg ALPRAZOLAM 33176083689 Active Baltazar Childers MD Active METFORMIN HCL 1000 MG TABS Take one by mouth twice daily METFORMIN HCL 89466457269 Active Baltazar Childers MD Active TIZANIDINE HCL 4 MG TABS 1 daily as needed for muscle spasm 2011 TIZANIDINE HCL 4 MG TABS 813534 TIZANIDINE HCL Inactiv e PHENTERMINE HCL 37.5 MG TABS Take one by mouth daily 2 PHENTERMINE HCL 37.5 MG TABS 784106 PHENTERMINE HCL Inactive CRESTOR 10 MG TABS 1 by mouth every day C RESTOR 10 MG TABS 485723 ROSUVASTATIN CALCIUM Inactive LIPITOR 20 MG TABS Take one by mouth daily in evening LIPITOR 20 MG TABS 351502 ATORVASTATIN CALCIUM Inactive DEPO-TESTOSTERONE 200 MG/ML OIL as directed 8 DEPO-TESTOSTERONE 200 MG/ML OIL 777115 TESTOSTERONE CYPIONATE Inactive NAPROXEN 500 MG TABS 1 tablet by mouth twice daily 201 07/27/22 NAPROXEN 500 MG TABS 542030 NAPROXEN Inactive GABAPENTIN 300 MG CAPS 1 po qd x 2 days, then 1 po BID x 2 d ays, then 1 po TID GABAPENTIN 300 MG CAPS 665635 GABAPENTIN Inact amie ONETOUCH ULTRA BLUE STRP Test twice a day ONETOUCH ULTRA BLUE STRP GLUCOSE BLOOD Inactive NAPROXEN SODIUM 220 MG ORAL TABS 1 three times a day as needed 2 NAPROXEN SODIUM 220 MG ORAL TABS 205357 NAPROXEN SODIUM Inactive TOUJEO SOLOSTAR 300 UNIT/ML SC SOPN 10 units SC daily TOUJEO SOLOSTAR 300 UNIT/ML SC SOPN INSULIN GLARGINE Inac tive SUCRALFATE 1 GM TABS 1 four times a day to coat the stomach 2015 SUCRALFATE 1 GM TABS 052536 SUCRALFATE Inactive Immunizations Vaccine Administration Date Value Standard Floyd cription pneumococcal immunization administered Pneumovax 23 [CVX33] pneumococcal polysaccharide vaccine, 23 valent Seasonal influenza vaccine, injectable, containing preservative, for > 3 years old (Afluria, FluLaval, Fluzone, Fluvirin, Fluarix, Agriflu(>= 18 yo)) Fluzone (>3 yrs.) [FGK904] Influenza, seasonal, inject able Seasonal influenza vaccine, injectable, containing preservative, for > 3 years old (Afluria, FluLaval, Fluzone, Fluvirin, Fluarix, Agriflu(>= 18 yo)) Fluzone (>3 yrs.) [KCM957] Influenza, seasonal, inject able Vital Signs Date [...] C - Chemistry sodium, serum 139 mmol/L 661-533 5315/07/07 potassium, serum 4.5 mmol/L 3.5-5.2 chloride, serum [...] 7.9 % 4.3-6.0 sodium, serum 139 mmol/L 933-604 9595/02/04 potassium, serum 5.4 mmol/L 3.5-5.2 chloride, serum [...] Panel - Chemistry sodium, serum 143 mmol/L 579-523 9720/12/19 carbon dioxide, venous blood 32.5 mmol/L 21.0-32 .0 potassium, serum 4.9 mmol/L 3.5-5.2 chloride, serum 101 mmol/L 98-107 blood glucose 129 mg/dL 65-110 urea nitrogen, blood 18 mg/dL 7-18 creatinine, serum 1.79 mg/dL 0.55-1.30 alanine aminotransferase (SGPT), serum 34 U/L 12-78 aspartate aminotransferase (SGOT), serum 26 U/L 15-37 calcium, serum 8.9 mg/dL 8.5-10.1 bilirubin, serum, total 0.30 mg/dL 0.00-1.00 cholesterol, serum 214 mg/dL 422-275 8589/12/19 triglyceride, serum, fasting 351 mg/dL 30-200 HDL cholesterol, serum 52 mg/dL 32-96 LDL cholesterol, serum 92 mg/dL 0-130 Lab Report: HGBA1C - Chemistry hemoglobin A1C, blood, as % of total hemoglobin 7.3 % 4.3-6.0 Lab Report: Renal Panel - Chemistry sodium, serum 141 mmol/L 508-936 4561/08/08 potassium, serum 4.9 mmol/L 3.5-5.2 chloride, serum 101 mmol/L 98-107 carbon dioxide, venous blood 34.1 mmol/L 21.0-32 .0 creatinine, serum 1.98 mg/dL 0.55-1.30 blood glucose 193 mg/dL 65-110 urea nitrogen, blood 30 mg/dL 7-18 calcium, serum 9.8 mg/dL 8.5-10.1 Encounters Code Encounter Date Provider Facility CPT-44533 Level 4 Est. Patient 11:34:17 CDT Baltazar Childers MD [facility]-21395 Level 3 Est. Patient 16:40:40 CDT Baltazar Childers MD [facility]-20875 Level 4 Est. Patient 10:41:24 CDT Baltazar Childers MD [facility]-62406 Level 4 Est. Patient 16:01:48 CDT Baltazar Childers MD [facility]-69174 Level 4 Est. Patient 16:54:07 LACTATION NURSE Baltazar Childers MD [facility]-24176 Level 4 Est. Patient 15:42:12 CDT Baltazar Childers MD [facility] CPT-21624 Level 4 Est. Patient 11:29:55 CDT Baltazar Childers MD [facility]-15821 Level 4 Est. Patient 14:15:19 CDT Baltazar Childers MD [facility]-57312 Level 4 Est. Patient 12:20:13 CDT Baltazar Childers MD [facility]-80057 Level 4 Est. Patient 14:52:45 LACTATION NURSE Baltazar Childers MD [facility] CPT-44730 Level 4 Est. Patient 14:18:34 LACTATION NURSE Baltazar Childers MD [facility]-30373 Level 4 Est. Patient 15:18:29 CDT Baltazar Childers MD [facility]-38051 Level 3 Est. Patient 12:45:34 CDT Baltazar Childers MD [facility]-16053 Level 3 Est. Patient 10:10:11 CDT Baltazar Childers MD [facility] CPT-38470 Level 3 Est. Patient 14:07:50 CDT Baltazar Childers MD [facility] CPT-13658 Level 4 Est. Patient 12:26:10 LACTATION NURSE Baltazar Childers MD [facility] CPT-34254 Level 4 Est. Patient 14:45:38 CDT Baltazar Childers MD [facility] CPT-14170 Level 4 New Patient 12:30:48 CDT Baltazar hinton MD [facility] Procedures Code Procedure Name Date Entry Date Standard Desc ription CPT-03028 Lipid - LAB USE ONLY 17:39:15 LACTATION NURSE 9 CPT-73326 HGBA1C - LAB USE ONLY 17:39:15 LACTATION NURSE CPT-77927 CMP - LAB USE ONLY 17:39:14 LACTATION NURSE CPT-64670 Venipuncture Draw Fee 17:39:14 LACTATION NURSE CPT-54311 First Vx - Ix admin via ID I M or jet injects without counseling by physician 16:55:17 LACTATION NURSE CPT-47027 Fluzone Quadrivalent Intramuscular Suspe nsion 0.5 ML 16:55:17 LACTATION NURSE CPT-27056 Renal Panel - LAB USE ONLY 17:39:20 CDT 201 10/31/07 CPT-38014 CBC - LAB USE ONLY 17:39:20 CDT CPT-91663 Venipuncture Draw Fee 17:39:20 CDT CPT-24424 Venipuncture Draw Fee 14:33:30 CDT CPT-52137 Renal Panel - LAB USE ONLY 14:33:30 CDT 201 10/31/07 CPT-28806 CBC - LAB USE ONLY 14:33:29 CDT CPT-46477 Venipuncture Draw Fee 14:50:21 LACTATION NURSE CPT-85940 Immunization Single Admin 17:35:35 CDT 2014 CPT-36675 Fluzone Quadrivalent preservative free ( >=3yrs.) 17:35:35 CDT CPT-32940 Venipuncture Draw Fee 12:10:27 LACTATION NURSE CPT-56021 Fluzone Quadrivalent Intramuscular Suspe nsion 0.5 ML 10:49:13 CDT CPT-93362 First Vx Component - Ix admi n via ID IM or jet inj without physician counseling 15:17:19 LACTATION NURSE CPT-45128 Pneumovax 23 15:17:19 LACTATION NURSE CPT-62621 Pneumovax 14:52:45 LACTATION NURSE CPT-66398 Venipuncture Draw Fee 14:06:30 LACTATION NURSE CPT-000 Give Appropriate Flu Vaccine 14:18:34 LACTATION NURSE 2 CPT-01689 Administration single or combination vac cine inc oral 14:46:00 LACTATION NURSE CPT-24639 Influenza split virus > age 3 14:46:00 LACTATION NURSE CPT-OV Office Visit 19:13:16 CDT CPT-46501 Zostavax 18:41:56 CDT CPT-76944 Administration single or combination vac cine inc oral 12:56:39 CDT CPT-90030 Zoster Vaccine (Zostavax) 12:56:39 CDT 2012 CPT-18419 Venipuncture Draw Fee 10:58:57 CDT CPT-67500 Sono pelvis non OB uterus ovaries cervix 17:45:04 CDT CPT-37122 Sono retroperitoneal complete kidneys an d bladder 17:14:36 CDT CPT-OV Office Visit 14:59:38 LACTATION NURSE CPT-J1070 Depo Testosterone 100 mg 14:50:13 CDT 03/05 CPT-34436 Abx/Therapy Injection 14:50:13 CDT CPT-18476 Administration single or combination vac cine inc oral 14:34:43 CDT CPT-81354 Influenza split virus > age 3 14:34:43 CDT CPT-J1070 Depo Testosterone 100 mg 17:37:13 CDT 01/11 CPT-00759 Abx/Therapy Injection 17:37:13 CDT CPT-01081 Venipuncture Draw Fee 16:30:13 CDT CPT-73742 Venipuncture Draw Fee 16:29:43 CDT CPT-J1070 Depo Testosterone 100 mg 14:45:38 CDT 01/11
--- OUTSIDE RECORDS SUMMARY | 2019-10-27 12:42 | XMS REPORT | Clinical Summary ---
Author Author Admin, Elba Lance [employer] [facility] Address Unknown Phone Unavailable Allergies, 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 [employer] Benign neoplasm of colon PERIPHERAL NEUROPATHY 356.9 [...] Carina Tcuker LPN Unspecified hypothyroidism Pharyngitis 462 Active Baltazar Childers MD Acute pharyngitis COLON POLYPS ICD-211.3 Inactive Lolis Thomas APR N Medication List Medication Instructions Start Date Stop Date Generic Name NDC Status Provider Patient Instruction ZITHROMAX Z-ISAIAS 250 MG TABS Take two tablets today and then 1 tablet daily for 4 days AZITHROMYCIN [id number] No Longer Active Yousif Childers MD Active LANTUS SOLOSTAR 100 UNIT/ML SC SOPN 30 units SC daily INSULIN GLARGINE 40733652672 Active Baltazar Childers MD Active AMLODIPINE BESYLATE 5 MG ORAL TABS 1 tab daily for HTN AMLODIPINE BESYLATE 07426675888 Active Baltazar Childers MD Active SYNTHROID 0.1 MG TAB 1 tablet by mouth daily LE VOTHYROXINE SODIUM 80675151078 Active Baltazar Childers MD Active GLIPIZIDE 10 MG TAB take 2 tablets twice daily GLIPIZIDE 18337453924 Active Baltazar Childers MD Active SUCRALFATE 1 GM TABS 1 four times a day to coat the stomach 2015 SUCRALFATE 29461975310 No Longer Active Baltazar Childers MD Active PEN NEEDLES 31G X 6 MM MISC use 1 daily INSULIN PEN NEEDLE 70232621343 Active KENDALL Juarez Active TOUJEO SOLOSTAR 300 UNIT/ML SC SOPN 10 units SC daily INSULIN GLARGINE 31777899124 No Longer Active Martita ARGUETA Active NAPROXEN SODIUM 220 MG ORAL TABS 1 three times a day as needed 2 NAPROXEN SODIUM 26799179025 No Longer Active Baltazar Childers MD Active ATORVASTATIN CALCIUM 20 MG ORAL TABS Take 1 tab daily ATORVASTATIN CALCIUM 19012627499 Active Baltazar Childers MD Active FUROSEMIDE 40 MG TABS Take one by mouth daily FUROSEMIDE 05973866685 Active Baltazar Childers MD Active LISINOPRIL 20 MG TABS Take one by mouth daily at bedtime LISINOPRIL 25507269060 No Longer Active Baltazar Childers MD Active ONETOUCH ULTRA BLUE STRP Test twice a day GLUCO SE BLOOD 42623942739 No Longer Active Baltazar Childers MD Active TRUEPLUS LANCETS 33G MISC Test twice a day LANCET S 75570746489 Active KENDALL Juarez Active TRUEDRAW LANCING DEVICE MISC Test twice a day L ANCET DEVICES 42535436535 Active Baltazar Childers MD Active TRUETRACK TEST STRP Test twice a day GLUCOSE BLOO D 58976720209 Active KENDALL Juarez Active TRUETRACK BLOOD GLUCOSE W/DEVICE KIT Test twice a day BLOOD GLUCOSE MONITORING SUPPL 66711375552 Active Baltazar Childers MD Activ e HYDROCODONE-ACETAMINOPHEN 7.5-325 MG TABS Take 1 tab every 6-8 hour s PRN HYDROCODONE-ACETAMINOPHEN 27106027219 Active Baltazar Childers MD Active NORTRIPTYLINE HCL 50 MG CAPS 1 every night for neuropathy 4 NORTRIPTYLINE HCL 92952550191 Active Baltazar Childers MD Acti ve GABAPENTIN 300 MG CAPS 1 three times a day GABAPE NTIN 98844462072 Active Baltazar Childers MD Active GABAPENTIN 300 MG CAPS 1 po qd x 2 days, then 1 po BID x 2 d ays, then 1 po TID GABAPENTIN 83827844569 No Longer Active Baltazar silverman MD Active TRAMADOL HCL 50 MG TABS 1 twice a day as needed for pain TRAMADOL HCL 07370370018 Active Baltazar Childers MD Active NAPROXEN 500 MG TABS 1 tablet by mouth twice daily NAPROXEN 42409386605 No Longer Active Baltazar Childers MD Active PROAIR HFA 108 (90 BASE) MCG/ACT AERS 2 puffs four times a d ay as needed ALBUTEROL SULFATE 73337772205 Active Baltazar Childers MD Active DEPO-TESTOSTERONE 200 MG/ML OIL as directed RUFINO TOSTERONE CYPIONATE 82881847314 No Longer Active Baltazar Childers MD Active LIPITOR 20 MG TABS Take one by mouth daily in evening ATORVASTATIN CALCIUM 88500339555 No Longer Active Baltazar Childers MD Activ e CRESTOR 10 MG TABS 1 by mouth every day R OSUVASTATIN CALCIUM 87047152925 No Longer Active Baltazar Childers MD Activ e PHENTERMINE HCL 37.5 MG TABS Take one by mouth daily 2 PHENTERMINE HCL 94875222264 No Longer Active Baltazar Childers MD Activ e ROBAXIN-750 750 MG TABS Take one by mouth daily ME THOCARBAMOL 54763074608 Active Baltazar Childers MD Active TIZANIDINE HCL 4 MG TABS 1 daily as needed for muscle spasm 2011 TIZANIDINE HCL 84605881331 No Longer Active Dawna Salazar RN Active [id number] 50-325-40 MG TABS 1 four time s a day as needed for heacache [id number] 04920950753 Active KENDALL Juarez Active SUMATRIPTAN SUCCINATE 100 MG TABS 1 tablet by mouth at onset of migraine as needed SUMATRIPTAN SUCCINATE 75842753932 Active Baltazar bynum MD Active LORATADINE 10 MG TABS Take one by mouth daily LORATADINE 22393343379 Active Baltazar Childers MD Active OMEPRAZOLE 20 MG CPDR Take one by mouth daily OMEPRAZOLE 95295280072 Active Baltazar Childers MD Active HYDROXYZINE HCL 25 MG TABS Take one by mouth daily HYDROXYZINE HCL 31488995952 Active Baltazar Childers MD Active ALPRAZOLAM 1 MG TABS 1 tablet by mouth daily at bedtime for restles s leg ALPRAZOLAM 72549481362 Active Baltazar Childers MD Active METFORMIN HCL 1000 MG TABS Take one by mouth twice daily METFORMIN HCL 73756174081 Active Baltazar Childers MD Active TIZANIDINE HCL 4 MG TABS 1 daily as needed for muscle spasm 2011 TIZANIDINE HCL 4 MG TABS 450272 TIZANIDINE HCL Inactiv e PHENTERMINE HCL 37.5 MG TABS Take one by mouth daily 2 PHENTERMINE HCL 37.5 MG TABS 127029 PHENTERMINE HCL Inactive CRESTOR 10 MG TABS 1 by mouth every day C RESTOR 10 MG TABS 961830 ROSUVASTATIN CALCIUM Inactive LIPITOR 20 MG TABS Take one by mouth daily in evening LIPITOR 20 MG TABS 982951 ATORVASTATIN CALCIUM Inactive DEPO-TESTOSTERONE 200 MG/ML OIL as directed 8 DEPO-TESTOSTERONE 200 MG/ML OIL 141597 TESTOSTERONE CYPIONATE Inactive NAPROXEN 500 MG TABS 1 tablet by mouth twice daily 201 07/27/22 NAPROXEN 500 MG TABS 022536 NAPROXEN Inactive GABAPENTIN 300 MG CAPS 1 po qd x 2 days, then 1 po BID x 2 d ays, then 1 po TID GABAPENTIN 300 MG CAPS 502500 GABAPENTIN Inact amie ONETOUCH ULTRA BLUE STRP Test twice a day ONETOUCH ULTRA BLUE STRP GLUCOSE BLOOD Inactive NAPROXEN SODIUM 220 MG ORAL TABS 1 three times a day as needed 2 NAPROXEN SODIUM 220 MG ORAL TABS 500489 NAPROXEN SODIUM Inactive TOUJEO SOLOSTAR 300 UNIT/ML SC SOPN 10 units SC daily TOUJEO SOLOSTAR 300 UNIT/ML SC SOPN INSULIN GLARGINE Inac tive SUCRALFATE 1 GM TABS 1 four times a day to coat the stomach 2015 SUCRALFATE 1 GM TABS 829009 SUCRALFATE Inactive ZITHROMAX Z-ISAIAS 250 MG TABS Take two tablets today and then 1 tablet daily for 4 days ZITHROMAX Z-ISAIAS 250 MG TABS 181456 AZITHROM YCIN Inactive Immunizations Vaccine Administration Date Value Standard Floyd cription pneumococcal immunization administered Pneumovax 23 [CVX33] pneumococcal polysaccharide vaccine, 23 valent Seasonal influenza vaccine, injectable, containing preservative, for > 3 years old (Afluria, FluLaval, Fluzone, Fluvirin, Fluarix, Agriflu(>= 18 yo)) Fluzone (>3 yrs.) [FYR018] Influenza, seasonal, inject able Seasonal influenza vaccine, injectable, containing preservative, for > 3 years old (Afluria, FluLaval, Fluzone, Fluvirin, Fluarix, Agriflu(>= 18 yo)) Fluzone (>3 yrs.) [RMN220] Influenza, seasonal, inject able Vital Signs Date [...] - Chem istry sodium, serum 139 mmol/L 108-205 0519/10/03 potassium, serum 4.7 mmol/L 3.5-5.2 chloride, serum 98 mmol/L 98-107 carbon dioxide, venous blood 28.7 mmol/L 21.0-32 .0 blood glucose 218 mg/dL 65-110 calcium, serum 9.8 mg/dL 8.5-10.1 urea nitrogen, blood 19 mg/dL 7-18 creatinine, serum 1.68 mg/dL 0.60-1.30 Lab Report: Basic Metabolic Panel, HGBA1 C - Chemistry sodium, serum 143 mmol/L 178-822 5464/06/19 potassium, serum 5.9 mmol/L 3.5-5.2 chloride, serum 105 mmol/L 98-107 carbon dioxide, venous blood 30.2 mmol/L 21.0-32 .0 blood glucose 189 mg/dL 65-110 calcium, serum 9.7 mg/dL 8.5-10.1 urea nitrogen, blood 37 mg/dL 7-18 creatinine, serum 2.11 mg/dL 0.55-1.30 hemoglobin A1C, blood, as % of total hemoglobin 8.2 % 4.3-6.0 Lab Report: CBC, Renal Panel - Chemistry sodium, serum 142 mmol/L 000-275 8517/08/11 potassium, serum 4.8 mmol/L 3.5-5.2 chloride, serum [...] Panel - Chemistry sodium, serum 143 mmol/L 877-510 9857/12/19 carbon dioxide, venous blood 32.5 mmol/L 21.0-32 .0 potassium, serum 4.9 mmol/L 3.5-5.2 chloride, serum 101 mmol/L 98-107 blood glucose 129 mg/dL 65-110 urea nitrogen, blood 18 mg/dL 7-18 creatinine, serum 1.79 mg/dL 0.55-1.30 alanine aminotransferase (SGPT), serum 34 U/L 12-78 aspartate aminotransferase (SGOT), serum 26 U/L 15-37 calcium, serum 8.9 mg/dL 8.5-10.1 bilirubin, serum, total 0.30 mg/dL 0.00-1.00 cholesterol, serum 214 mg/dL 078-962 9364/12/19 triglyceride, serum, fasting 351 mg/dL 30-200 HDL [...] 4.3-6.0 Encounters Code Encounter Date Provider Facility CPT-57663 Level 4 Est. Patient 12:25:11 CDT Baltazar Childers MD [facility] CPT-20744 Level 4 Est. Patient 14:22:31 CDT Baltazar Childers MD [facility]-50651 Level 4 Est. Patient 15:44:38 CDT Shonna Parker APRN [facility]-18754 Level 4 Est. Patient 11:34:17 CDT Baltazar Childers MD [facility]-93050 Level 3 Est. Patient 16:40:40 CDT Baltazar Childers MD [facility]-58758 Level 4 Est. Patient 10:41:24 CDT Baltazar Childers MD [facility]-01945 Level 4 Est. Patient 16:01:48 CDT Baltazar Childers MD [facility]-54861 Level 4 Est. Patient 16:54:07 PRODUCTION SCHEDULER Baltazar Childers MD [facility]-81169 Level 4 Est. Patient 15:42:12 CDT Baltazar Childers MD [facility]-50039 Level 4 Est. Patient 11:29:55 CDT Baltazar Childers MD [facility] CPT-59960 Level 4 Est. Patient 14:15:19 CDT Baltazar Childers MD [facility]-23326 Level 4 Est. Patient 12:20:13 CDT Baltazar Childers MD [facility]-44445 Level 4 Est. Patient 14:52:45 PRODUCTION SCHEDULER Baltazar Childers MD [facility] CPT-09600 Level 4 Est. Patient 14:18:34 PRODUCTION SCHEDULER Baltazar Chidlers MD [facility] CPT-85199 Level 4 Est. Patient 15:18:29 CDT Baltazar Childers MD [facility]-63997 Level 3 Est. Patient 12:45:34 CDT Baltazar Childers MD [facility]-29177 Level 3 Est. Patient 10:10:11 CDT Baltazar Childers MD [facility] CPT-70972 Level 3 Est. Patient 14:07:50 CDT Baltazar Childers MD [facility] CPT-05238 Level 4 Est. Patient 12:26:10 PRODUCTION SCHEDULER Baltazar Childers MD [facility] CPT-05695 Level 4 Est. Patient 14:45:38 CDT Baltazar Childers MD [facility] CPT-22735 Level 4 New Patient 12:30:48 CDT Baltazar hinton MD [facility] Procedures Code Procedure Name Date Entry Date Standard Desc ription CPT-62242 First Vx - Ix admin via ID I M or jet injects without counseling by physician 13:08:59 CDT CPT-40519 Fluzone Quadrivalent Intramuscular Suspe nsion 0.5 ML 13:08:59 CDT CPT-34530 Venipuncture Draw Fee 12:04:12 CDT CPT-84921 Lipid - LAB USE ONLY 17:39:15 PRODUCTION SCHEDULER 9 CPT-78986 HGBA1C - LAB USE ONLY 17:39:15 PRODUCTION SCHEDULER CPT-78958 CMP - LAB USE ONLY 17:39:14 PRODUCTION SCHEDULER CPT-68775 Venipuncture Draw Fee 17:39:14 PRODUCTION SCHEDULER CPT-90392 First Vx - Ix admin via ID I M or jet injects without counseling by physician 16:55:17 PRODUCTION SCHEDULER CPT-94101 Fluzone Quadrivalent Intramuscular Suspe nsion 0.5 ML 16:55:17 PRODUCTION SCHEDULER CPT-70798 Renal Panel - LAB USE ONLY 17:39:20 CDT 201 10/31/07 CPT-45400 CBC - LAB USE ONLY 17:39:20 CDT CPT-88481 Venipuncture Draw Fee 17:39:20 CDT CPT-80766 Venipuncture Draw Fee 14:33:30 CDT CPT-05723 Renal Panel - LAB USE ONLY 14:33:30 CDT 201 10/31/07 CPT-23198 CBC - LAB USE ONLY 14:33:29 CDT CPT-23814 Venipuncture Draw Fee 14:50:21 PRODUCTION SCHEDULER CPT-12133 Immunization Single Admin 17:35:35 CDT 2014 CPT-05869 Fluzone Quadrivalent preservative free ( >=3yrs.) 17:35:35 CDT CPT-56362 Venipuncture Draw Fee 12:10:27 PRODUCTION SCHEDULER CPT-40401 Fluzone Quadrivalent Intramuscular Suspe nsion 0.5 ML 10:49:13 CDT CPT-47123 First Vx Component - Ix admi n via ID IM or jet inj without physician counseling 15:17:19 PRODUCTION SCHEDULER CPT-19457 Pneumovax 23 15:17:19 PRODUCTION SCHEDULER CPT-52323 Pneumovax 14:52:45 PRODUCTION SCHEDULER CPT-04410 Venipuncture Draw Fee 14:06:30 PRODUCTION SCHEDULER CPT-000 Give Appropriate Flu Vaccine 14:18:34 PRODUCTION SCHEDULER 2 CPT-83040 Administration single or combination vac cine inc oral 14:46:00 PRODUCTION SCHEDULER CPT-27615 Influenza split virus > age 3 14:46:00 PRODUCTION SCHEDULER CPT-OV Office Visit 19:13:16 CDT CPT-61508 Zostavax 18:41:56 CDT CPT-24351 Administration single or combination vac cine inc oral 12:56:39 CDT CPT-17766 Zoster Vaccine (Zostavax) 12:56:39 CDT 2012 CPT-44061 Venipuncture Draw Fee 10:58:57 CDT CPT-06304 Sono pelvis non OB uterus ovaries cervix 17:45:04 CDT CPT-67458 Sono retroperitoneal complete kidneys an d bladder 17:14:36 CDT CPT-OV Office Visit 14:59:38 PRODUCTION SCHEDULER CPT-J1070 Depo Testosterone 100 mg 14:50:13 CDT 03/05 CPT-67410 Abx/Therapy Injection 14:50:13 CDT CPT-33313 Administration single or combination vac cine inc oral 14:34:43 CDT CPT-82740 Influenza split virus > age 3 14:34:43 CDT CPT-J1070 Depo Testosterone 100 mg 17:37:13 CDT 01/11 CPT-34009 Abx/Therapy Injection 17:37:13 CDT CPT-47092 Venipuncture Draw Fee 16:30:13 CDT CPT-25334 Venipuncture Draw Fee 16:29:43 CDT CPT-J1070 Depo Testosterone 100 mg 14:45:38 CDT 01/11
--- OUTSIDE RECORDS SUMMARY | 2019-10-27 12:43 | XMS REPORT | Clinical Summary ---
Author Author Admin, Elba Lance Michelle [facility] Address Unknown Phone Unavailable 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 CHAPERON Benign neoplasm of colon PERIPHERAL NEUROPATHY 356.9 [...] ronary atherosclerosis of unspecified type of vessel, [place] or graft OTH NONSPC ABN FINDNG RAD&OTH [...] mellitus, type II, uncontrolled 250.02 Active Baltazar hCilders MD Diabetes mellitus without me ntion of complication, type II or unspecified type, uncontrolled Heartburn 787.1 Active Baltazar Childers MD Heartburn COLON POLYPS ICD-211.3 Inactive Lolis Thomas APR N Medication List Medication Instructions Start Date Stop Date Generic Name NDC Status Provider Patient Instruction SUCRALFATE 1 GM TABS 1 four times a day to coat the stomach SUCRALFATE 73773747584 Active Baltazar Childers MD Active PEN NEEDLES 31G X 6 MM MISC use 1 daily INSULIN PEN NEEDLE 24037346175 Active Martita Herbert RMA Active TOUJEO SOLOSTAR 300 UNIT/ML SC SOPN 10 units SC daily INSULIN GLARGINE 45784708233 No Longer Active Martita Herbert RMA Active LANTUS SOLOSTAR 100 UNIT/ML SC SOPN 10 units SC daily INSULIN GLARGINE 35637072608 Active KENDALL Juarez Active NAPROXEN SODIUM 220 MG ORAL TABS 1 three times a day as needed 2 NAPROXEN SODIUM 67749119698 No Longer Active Baltazar Childers MD Active ATORVASTATIN CALCIUM 20 MG ORAL TABS Take 1 tab daily ATORVASTATIN CALCIUM 62062952513 Active KENDALL Juarez Active FUROSEMIDE 40 MG TABS Take one by mouth daily FUROSEMIDE 65034853735 Active KENDALL Juarez Active LISINOPRIL 20 MG TABS Take one by mouth daily at bedtime LISINOPRIL 31082143901 Active Baltazar Childers MD Active ONETOUCH ULTRA BLUE STRP Test twice a day GLUCO SE BLOOD 12638840610 No Longer Active Baltazar Childers MD Active TRUEPLUS LANCETS 33G MISC Test twice a day LANCET S 29958951600 Active KENDALL Juarez Active TRUEDRAW LANCING DEVICE MISC Test twice a day L ANCET DEVICES 77595924273 Active Baltazar Childers MD Active TRUETRACK TEST STRP Test twice a day GLUCOSE BLOO D 76751580869 Active KENDALL Juarez Active TRUETRACK BLOOD GLUCOSE W/DEVICE KIT Test twice a day BLOOD GLUCOSE MONITORING SUPPL 92409719243 Active Baltazar Childers MD Activ e HYDROCODONE-ACETAMINOPHEN 7.5-325 MG TABS Take 1 tab every 6-8 hour s PRN HYDROCODONE-ACETAMINOPHEN 38636071206 Active Baltazar Childers MD Active NORTRIPTYLINE HCL 50 MG CAPS 1 every night for neuropathy 4 NORTRIPTYLINE HCL 68651040802 Active KENDALL Juarez Acti ve GABAPENTIN 300 MG CAPS 1 three times a day GABAPE NTIN 53129018303 Active Baltazar Childers MD Active GABAPENTIN 300 MG CAPS 1 po qd x 2 days, then 1 po BID x 2 d ays, then 1 po TID GABAPENTIN 63231490151 No Longer Active Baltazar silverman MD Active TRAMADOL HCL 50 MG TABS 1 twice a day as needed for pain TRAMADOL HCL 22884720260 Active Baltazar Childers MD Active NAPROXEN 500 MG TABS 1 tablet by mouth twice daily NAPROXEN 33265695898 No Longer Active Baltazar Childers MD Active PROAIR HFA 108 (90 BASE) MCG/ACT AERS 2 puffs four times a d ay as needed ALBUTEROL SULFATE 53566145238 Active Baltazar Childers MD Active DEPO-TESTOSTERONE 200 MG/ML OIL as directed RUFINO TOSTERONE CYPIONATE 40944069188 No Longer Active Baltazar Childers MD Active LIPITOR 20 MG TABS Take one by mouth daily in evening ATORVASTATIN CALCIUM 47110257094 No Longer Active Baltazar Childers MD Activ e CRESTOR 10 MG TABS 1 by mouth every day R OSUVASTATIN CALCIUM 15580429521 No Longer Active Baltazar Childers MD Activ e PHENTERMINE HCL 37.5 MG TABS Take one by mouth daily 2 PHENTERMINE HCL 36284933985 No Longer Active Baltazar Childers MD Activ e ROBAXIN-750 750 MG TABS Take one by mouth daily ME THOCARBAMOL 49004458222 Active Baltazar Childers MD Active TIZANIDINE HCL 4 MG TABS 1 daily as needed for muscle spasm 2011 TIZANIDINE HCL 18919872837 No Longer Active Dawna Salazar RN Active [id number] 50-325-40 MG TABS 1 four time s a day as needed for heacache [id number] 29845758278 Active Baltazar Childers MD Active SUMATRIPTAN SUCCINATE 100 MG TABS 1 tablet by mouth at onset of migraine as needed SUMATRIPTAN SUCCINATE 00722820455 Active Bella STEPHEN RN Active LORATADINE 10 MG TABS Take one by mouth daily LORATADINE 84482330131 Active Baltazar Childers MD Active OMEPRAZOLE 20 MG CPDR Take one by mouth daily OMEPRAZOLE 03752259352 Active Argentina Lyons Active HYDROXYZINE HCL 25 MG TABS Take one by mouth daily HYDROXYZINE HCL 63248579442 Active Baltazar Childers MD Active GLIPIZIDE 10 MG TABS 1 tablet by mouth twice daily GLIPIZIDE 97125009361 Active KENDALL Juarez Active ALPRAZOLAM 1 MG TABS 1 tablet by mouth daily at bedtime for restles s leg ALPRAZOLAM 65151677576 Active Baltazar Childers MD Active METFORMIN HCL 1000 MG TABS Take one by mouth twice daily METFORMIN HCL 93933282008 Active Baltazar Childers MD Active TIZANIDINE HCL 4 MG TABS 1 daily as needed for muscle spasm 2011 TIZANIDINE HCL 4 MG TABS 768491 TIZANIDINE HCL Inactiv e PHENTERMINE HCL 37.5 MG TABS Take one by mouth daily 2 PHENTERMINE HCL 37.5 MG TABS 065167 PHENTERMINE HCL Inactive CRESTOR 10 MG TABS 1 by mouth every day C RESTOR 10 MG TABS 147509 ROSUVASTATIN CALCIUM Inactive LIPITOR 20 MG TABS Take one by mouth daily in evening LIPITOR 20 MG TABS 767297 ATORVASTATIN CALCIUM Inactive DEPO-TESTOSTERONE 200 MG/ML OIL as directed 8 DEPO-TESTOSTERONE 200 MG/ML OIL 093033 TESTOSTERONE CYPIONATE Inactive NAPROXEN 500 MG TABS 1 tablet by mouth twice daily 201 07/27/22 NAPROXEN 500 MG TABS 638842 NAPROXEN Inactive GABAPENTIN 300 MG CAPS 1 po qd x 2 days, then 1 po BID x 2 d ays, then 1 po TID GABAPENTIN 300 MG CAPS 186404 GABAPENTIN Inact amie ONETOUCH ULTRA BLUE STRP Test twice a day ONETOUCH ULTRA BLUE STRP GLUCOSE BLOOD Inactive NAPROXEN SODIUM 220 MG ORAL TABS 1 three times a day as needed 2 NAPROXEN SODIUM 220 MG ORAL TABS 914049 NAPROXEN SODIUM Inactive TOUJEO SOLOSTAR 300 UNIT/ML [...] Fluarix, Agriflu(>= 18 yo)) Fluzone (>3 yrs.) [[id number]] Influenza, seasonal, inject able Seasonal influenza vaccine, injectable, containing preservative, for > 3 years old (Afluria, FluLaval, Fluzone, Fluvirin, Fluarix, Agriflu(>= 18 yo)) Fluzone (>3 yrs.) [[id number]] Influenza, seasonal, inject able Vital Signs Date [...] C - Chemistry sodium, serum 139 mmol/L 554-313 1682/07/07 potassium, serum 4.5 mmol/L 3.5-5.2 chloride, serum [...] 7.9 % 4.3-6.0 sodium, serum 139 mmol/L 172-217 6318/02/04 potassium, serum 5.4 mmol/L 3.5-5.2 chloride, serum [...] Panel - Chemistry sodium, serum 138 mmol/L 092-121 7832/11/23 carbon dioxide, venous blood 32.4 mmol/L 21.0-32 .0 potassium, serum 5.7 mmol/L 3.5-5.2 chloride, serum 98 mmol/L 98-107 blood glucose 136 mg/dL 65-110 urea nitrogen, blood 18 mg/dL 7-18 creatinine, serum 1.71 mg/dL 0.55-1.30 alanine aminotransferase (SGPT), serum 71 U/L 12-78 aspartate aminotransferase (SGOT), serum 34 U/L 15-37 calcium, serum 9.4 mg/dL 8.5-10.1 bilirubin, serum, total 0.40 mg/dL 0.00-1.00 cholesterol, serum 405 mg/dL 793-485 6455/11/23 triglyceride, serum, fasting 709 mg/dL 30-200 HDL [...] Panel - Chemistry sodium, serum 141 mmol/L 576-275 1856/08/08 potassium, serum 4.9 mmol/L 3.5-5.2 chloride, serum [...] mg/dL Encounters Code Encounter Date Provider Facility CPT-00382 Level 4 Est. Patient 11:34:17 CDT Baltazar Childers MD [facility] CPT-14542 Level 3 Est. Patient 16:40:40 CDT Baltazar Childers MD [facility] CPT-43541 Level 4 Est. Patient 10:41:24 CDT Baltazar Childers MD [facility] CPT-91537 Level 4 Est. Patient 16:01:48 CDT Baltazar Childers MD [facility] CPT-17383 Level 4 Est. Patient 16:54:07 MANAGER MULTICULTURAL Baltazar Childers MD [facility] CPT-89219 Level 4 Est. Patient 15:42:12 CDT Baltazar Childers MD [facility] CPT-79602 Level 4 Est. Patient 11:29:55 CDT Baltazar Childers MD [facility] CPT-86991 Level 4 Est. Patient 14:15:19 CDT Baltazar Childers MD [facility] CPT-09632 Level 4 Est. Patient 12:20:13 CDT Baltazar Childers MD [facility] CPT-19777 Level 4 Est. Patient 14:52:45 MANAGER MULTICULTURAL Baltazar Childers MD [facility] CPT-95964 Level 4 Est. Patient 14:18:34 MANAGER MULTICULTURAL Baltazar Childers MD [facility] CPT-79368 Level 4 Est. Patient 15:18:29 CDT Baltazar Childers MD [facility] CPT-08495 Level 3 Est. Patient 12:45:34 CDT Baltazar Childers MD [facility] CPT-36175 Level 3 Est. Patient 10:10:11 CDT Baltazar Childers MD [facility] CPT-68832 Level 3 Est. Patient 14:07:50 CDT Baltazar Childers MD [facility] CPT-00562 Level 4 Est. Patient 12:26:10 MANAGER MULTICULTURAL Baltazar Childers MD [facility] CPT-71840 Level 4 Est. Patient 14:45:38 CDT Baltazar Childers MD [facility] CPT-18107 Level 4 New Patient 12:30:48 CDT Baltazar hinton MD [facility] Procedures Code Procedure Name Date Entry Date Standard Desc ription CPT-48238 Renal Panel - LAB USE ONLY 17:39:20 CDT 201 10/31/07 CPT-98335 CBC - LAB USE ONLY 17:39:20 CDT CPT-80053 Venipuncture Draw Fee 17:39:20 CDT CPT-01344 Venipuncture Draw Fee 14:33:30 CDT CPT-68616 Renal Panel - LAB USE ONLY 14:33:30 CDT 201 10/31/07 CPT-34528 CBC - LAB USE ONLY 14:33:29 CDT CPT-93898 Venipuncture Draw Fee 14:50:21 MANAGER MULTICULTURAL CPT-57827 Immunization Single Admin 17:35:35 CDT 2014 CPT-72049 Fluzone Quadrivalent preservative free ( >=3yrs.) 17:35:35 CDT CPT-26639 Venipuncture Draw Fee 12:10:27 MANAGER MULTICULTURAL CPT-73063 Fluzone Quadrivalent Intramuscular Suspe nsion 0.5 ML 10:49:13 CDT CPT-20587 First Vx Component - Ix admi n via ID IM or jet inj without physician counseling 15:17:19 MANAGER MULTICULTURAL CPT-99396 Pneumovax 15:17:19 MANAGER MULTICULTURAL CPT-20791 Pneumovax 14:52:45 MANAGER MULTICULTURAL CPT-58017 Venipuncture Draw Fee 14:06:30 MANAGER MULTICULTURAL CPT-000 Give Appropriate Flu Vaccine 14:18:34 MANAGER MULTICULTURAL 2 CPT-90656 Administration single or combination vac cine inc oral 14:46:00 MANAGER MULTICULTURAL CPT-33745 Influenza split virus > age 3 14:46:00 MANAGER MULTICULTURAL CPT-OV Office Visit 19:13:16 CDT CPT-03152 Zostavax 18:41:56 CDT CPT-37280 Administration single or combination vac cine inc oral 12:56:39 CDT CPT-84280 Zoster Vaccine (Zostavax) 12:56:39 CDT 2012 CPT-63867 Venipuncture Draw Fee 10:58:57 CDT CPT-43698 Sono pelvis non OB uterus ovaries cervix 17:45:04 CDT CPT-85198 Sono retroperitoneal complete kidneys an d bladder 17:14:36 CDT CPT-OV Office Visit 14:59:38 MANAGER MULTICULTURAL CPT-J1070 Depo Testosterone 100 mg 14:50:13 CDT 03/05 CPT-14489 Abx/Therapy Injection 14:50:13 CDT CPT-68600 Administration single or combination vac cine inc oral 14:34:43 CDT CPT-47527 Influenza split virus > age 3 14:34:43 CDT CPT-J1070 Depo Testosterone 100 mg 17:37:13 CDT 01/11 CPT-09292 Abx/Therapy Injection 17:37:13 CDT CPT-72134 Venipuncture Draw Fee 16:30:13 CDT CPT-81483 Venipuncture Draw Fee 16:29:43 CDT CPT-J1070 Depo Testosterone 100 mg 14:45:38 CDT 01/11
--- OUTSIDE RECORDS SUMMARY | 2019-10-27 12:43 | XMS REPORT | Clinical Summary ---
Author Author Admin, Elba Lance Michelle [facility] Address Unknown Phone Unavailable Allergies, Adverse 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 [employer] Benign neoplasm of colon PERIPHERAL NEUROPATHY 356.9 [...] MISC use 1 daily INSULIN PEN NEEDLE 45406417025 Active Martita Herbert RMA Active TOUJEO SOLOSTAR 300 UNIT/ML SC SOPN 10 units SC daily INSULIN GLARGINE 59983746606 No Longer Active Martita Herbert RMA Active LANTUS SOLOSTAR 100 UNIT/ML SC SOPN 10 units SC daily INSULIN GLARGINE 60454103965 Active Martita Herbert RMA Active NAPROXEN SODIUM 220 MG ORAL TABS 1 three times a day as needed 2 NAPROXEN SODIUM 50194768143 No Longer Active Baltazar Childers MD Active ATORVASTATIN CALCIUM 20 MG ORAL TABS Take 1 tab daily ATORVASTATIN CALCIUM 78729995587 Active KENDALL Juarez Active FUROSEMIDE 40 MG TABS Take one by mouth daily FUROSEMIDE 19851871952 Active Baltazar Childers MD Active LISINOPRIL 20 MG TABS Take one by mouth daily at bedtime LISINOPRIL 30622231167 Active Baltazar Childers MD Active ONETOUCH ULTRA BLUE STRP Test twice a day GLUCO SE BLOOD 32736400658 No Longer Active Baltazar Childers MD Active TRUEPLUS LANCETS 33G MISC Test twice a day LANCET S 47380057519 Active KENDALL Juarez Active TRUEDRAW LANCING DEVICE MISC Test twice a day L ANCET DEVICES 45325581542 Active Baltazar Childers MD Active TRUETRACK TEST STRP Test twice a day GLUCOSE BLOO D 42630725350 Active KENDALL Juarez Active TRUETRACK BLOOD GLUCOSE W/DEVICE KIT Test twice a day BLOOD GLUCOSE MONITORING SUPPL 42165465382 Active Baltazar Childers MD Activ e HYDROCODONE-ACETAMINOPHEN 7.5-325 MG TABS Take 1 tab every 6-8 hour s PRN HYDROCODONE-ACETAMINOPHEN 62487019632 Active Baltazar Childers MD Active NORTRIPTYLINE HCL 50 MG CAPS 1 every night for neuropathy 4 NORTRIPTYLINE HCL 86728453478 Active Batlazar Childers MD Acti ve GABAPENTIN 300 MG CAPS 1 three times a day GABAPE NTIN 23093201121 Active Baltazar Childers MD Active GABAPENTIN 300 MG CAPS 1 po qd x 2 days, then 1 po BID x 2 d ays, then 1 po TID GABAPENTIN 01866082342 No Longer Active Baltazar silverman MD Active TRAMADOL HCL 50 MG TABS 1 twice a day as needed for pain TRAMADOL HCL 56915680065 Active Baltazar Childers MD Active NAPROXEN 500 MG TABS 1 tablet by mouth twice daily NAPROXEN 49159710580 No Longer Active Baltazar Childers MD Active PROAIR HFA 108 (90 BASE) MCG/ACT AERS 2 puffs four times a d ay as needed ALBUTEROL SULFATE 59371548509 Active KENDALL Juarez Active DEPO-TESTOSTERONE 200 MG/ML OIL as directed RUFINO TOSTERONE CYPIONATE 32123118803 No Longer Active Baltazar Childers MD Active LIPITOR 20 MG TABS Take one by mouth daily in evening ATORVASTATIN CALCIUM 20587512805 No Longer Active Baltazar Childers MD Activ e CRESTOR 10 MG TABS 1 by mouth every day R OSUVASTATIN CALCIUM 24814034644 No Longer Active Baltazar Childers MD Activ e PHENTERMINE HCL 37.5 MG TABS Take one by mouth daily 2 PHENTERMINE HCL 26118729214 No Longer Active Baltazar Childers MD Activ e ROBAXIN-750 750 MG TABS Take one by mouth daily ME THOCARBAMOL 74490238327 Active Baltazar Childers MD Active TIZANIDINE HCL 4 MG TABS 1 daily as needed for muscle spasm 2011 TIZANIDINE HCL 37968918099 No Longer Active Dawna Salazar RN Active [id number] 50-325-40 MG TABS 1 four time s a day as needed for heacache [id number] 12762721949 Active Baltazar Childers MD Active SUMATRIPTAN SUCCINATE 100 MG TABS 1 tablet by mouth at onset of migraine as needed SUMATRIPTAN SUCCINATE 88884625205 Active KENDALL Juarez Active LORATADINE 10 MG TABS Take one by mouth daily LORATADINE 28112221789 Active Baltazar Childers MD Active OMEPRAZOLE 20 MG CPDR Take one by mouth daily OMEPRAZOLE 25942531800 Active Argentina Fitzgeralder Active HYDROXYZINE HCL 25 MG TABS Take one by mouth daily HYDROXYZINE HCL 19534986988 Active Baltazar Childers MD Active GLIPIZIDE 10 MG TABS 1 tablet by mouth twice daily GLIPIZIDE 27116724216 Active Baltazar Childers MD Active ALPRAZOLAM 1 MG TABS 1 tablet by mouth daily at bedtime for restles s leg ALPRAZOLAM 80610679850 Active Baltazar Childers MD Active METFORMIN HCL 1000 MG TABS Take one by mouth twice daily METFORMIN HCL 51408952216 Active Baltazar Childers MD Active TIZANIDINE HCL 4 MG TABS 1 daily as needed for muscle spasm 2011 TIZANIDINE HCL 4 MG TABS 546423 TIZANIDINE HCL Inactiv e PHENTERMINE HCL 37.5 MG TABS Take one by mouth daily 2 PHENTERMINE HCL 37.5 MG TABS 287941 PHENTERMINE HCL Inactive CRESTOR 10 MG TABS 1 by mouth every day C RESTOR 10 MG TABS 131150 ROSUVASTATIN CALCIUM Inactive LIPITOR 20 MG TABS Take one by mouth daily in evening LIPITOR 20 MG TABS 447964 ATORVASTATIN CALCIUM Inactive DEPO-TESTOSTERONE 200 MG/ML OIL as directed 8 DEPO-TESTOSTERONE 200 MG/ML OIL 543456 TESTOSTERONE CYPIONATE Inactive NAPROXEN 500 MG TABS 1 tablet by mouth twice daily 201 07/27/22 NAPROXEN 500 MG TABS 233485 NAPROXEN Inactive GABAPENTIN 300 MG CAPS 1 po qd x 2 days, then 1 po BID x 2 d ays, then 1 po TID GABAPENTIN 300 MG CAPS 263391 GABAPENTIN Inact amie ONETOUCH ULTRA BLUE STRP Test twice a day ONETOUCH ULTRA BLUE STRP GLUCOSE BLOOD Inactive NAPROXEN SODIUM 220 MG ORAL TABS 1 three times a day as needed 2 NAPROXEN SODIUM 220 MG ORAL TABS 449707 NAPROXEN SODIUM Inactive TOUJEO SOLOSTAR 300 UNIT/ML [...] Fluarix, Agriflu(>= 18 yo)) Fluzone (>3 yrs.) [[id number]] Influenza, seasonal, inject able Seasonal influenza vaccine, injectable, containing preservative, for > 3 years old (Afluria, FluLaval, Fluzone, Fluvirin, Fluarix, Agriflu(>= 18 yo)) Fluzone (>3 yrs.) [[id number]] Influenza, seasonal, inject able Vital Signs Date [...] C - Chemistry sodium, serum 139 mmol/L 218-282 0303/07/07 potassium, serum 4.5 mmol/L 3.5-5.2 chloride, serum [...] 7.9 % 4.3-6.0 sodium, serum 139 mmol/L 971-333 6503/02/04 potassium, serum 5.4 mmol/L 3.5-5.2 chloride, serum [...] Panel - Chemistry sodium, serum 138 mmol/L 957-051 4557/11/23 carbon dioxide, venous blood 32.4 mmol/L 21.0-32 .0 potassium, serum 5.7 mmol/L 3.5-5.2 chloride, serum 98 mmol/L 98-107 blood glucose 136 mg/dL 65-110 urea nitrogen, blood 18 mg/dL 7-18 creatinine, serum 1.71 mg/dL 0.55-1.30 alanine aminotransferase (SGPT), serum 71 U/L 12-78 aspartate aminotransferase (SGOT), serum 34 U/L 15-37 calcium, serum 9.4 mg/dL 8.5-10.1 bilirubin, serum, total 0.40 mg/dL 0.00-1.00 cholesterol, serum 405 mg/dL 554-017 4673/11/23 triglyceride, serum, fasting 709 mg/dL 30-200 HDL [...] Panel - Chemistry sodium, serum 141 mmol/L 375-980 9641/08/08 potassium, serum 4.9 mmol/L 3.5-5.2 chloride, serum [...] mg/dL Encounters Code Encounter Date Provider Facility CPT-20957 Level 3 Est. Patient 16:40:40 CDT Baltazar Childers MD [facility] CPT-65412 Level 4 Est. Patient 10:41:24 CDT Baltazar Childers MD [facility] CPT-52456 Level 4 Est. Patient 16:01:48 CDT Baltazar Childers MD [facility] CPT-08283 Level 4 Est. 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 Patient 15:42:12 CDT Baltazar Childers MD [facility] CPT-12688 Level 4 Est. Patient 11:29:55 CDT Baltazar Childers MD [facility] CPT-83035 Level 4 Est. Patient 14:15:19 CDT Baltazar Childers MD [facility] CPT-11447 Level 4 Est. Patient 12:20:13 CDT Baltazar Childers MD [facility] CPT-53089 Level 4 Est. Patient 14:52:45 FIRE CLAIMS ADJUSTER Baltazar Childers MD [facility] CPT-05706 Level 4 Est. Patient 14:18:34 FIRE CLAIMS ADJUSTER Baltazar Childers MD [facility] CPT-93092 Level 4 Est. Patient 15:18:29 CDT Baltazar Childers MD [facility] CPT-61974 Level 3 Est. Patient 12:45:34 CDT Baltazar Childers MD [facility] CPT-74182 Level 3 Est. Patient 10:10:11 CDT Baltazar Childers MD [facility] CPT-48562 Level 3 Est. Patient 14:07:50 CDT Baltazar Childers MD [facility] CPT-49212 Level 4 Est. Patient 12:26:10 FIRE CLAIMS ADJUSTER Baltazar Childers MD [facility] CPT-38582 Level 4 Est. Patient 14:45:38 CDT Baltazar Childers MD [facility] CPT-57457 Level 4 New Patient 12:30:48 CDT Baltazar hinton MD [facility] Procedures Code Procedure Name Date Entry Date Standard Desc ription CPT-00835 Renal Panel - LAB USE ONLY 17:39:20 CDT 201 10/31/07 CPT-33351 CBC - LAB USE ONLY 17:39:20 CDT CPT-54541 Venipuncture Draw Fee 17:39:20 CDT CPT-15216 Venipuncture Draw Fee 14:33:30 CDT CPT-99080 Renal Panel - LAB USE ONLY 14:33:30 CDT 201 10/31/07 CPT-53523 CBC - LAB USE ONLY 14:33:29 CDT CPT-05993 Venipuncture Draw Fee 14:50:21 FIRE CLAIMS ADJUSTER CPT-03576 Immunization Single Admin 17:35:35 CDT 2014 CPT-59789 Fluzone Quadrivalent preservative free ( >=3yrs.) 17:35:35 CDT CPT-64229 Venipuncture Draw Fee 12:10:27 FIRE CLAIMS ADJUSTER CPT-84783 Fluzone Quadrivalent Intramuscular Suspe nsion 0.5 ML 10:49:13 CDT CPT-80645 First Vx Component - Ix admi n via ID IM or jet inj without physician counseling 15:17:19 FIRE CLAIMS ADJUSTER CPT-45966 Pneumovax 23 15:17:19 FIRE CLAIMS ADJUSTER CPT-92667 Pneumovax 14:52:45 FIRE CLAIMS ADJUSTER CPT-87553 Venipuncture Draw Fee 14:06:30 FIRE CLAIMS ADJUSTER CPT-000 Give Appropriate Flu Vaccine 14:18:34 FIRE CLAIMS ADJUSTER 2 CPT-99689 Administration single or combination vac cine inc oral 14:46:00 FIRE CLAIMS ADJUSTER CPT-01421 Influenza split virus > age 3 14:46:00 FIRE CLAIMS ADJUSTER CPT-OV Office Visit 19:13:16 CDT CPT-96299 Zostavax 18:41:56 CDT CPT-20384 Administration single or combination vac cine inc oral 12:56:39 CDT CPT-91050 Zoster Vaccine (Zostavax) 12:56:39 CDT 2012 CPT-82761 Venipuncture Draw Fee 10:58:57 CDT CPT-89236 Sono pelvis non OB uterus ovaries cervix 17:45:04 CDT CPT-53631 Sono retroperitoneal complete kidneys an d bladder 17:14:36 CDT CPT-OV Office Visit 14:59:38 FIRE CLAIMS ADJUSTER CPT-J1070 Depo Testosterone 100 mg 14:50:13 CDT 03/05 CPT-89121 Abx/Therapy Injection 14:50:13 CDT CPT-47204 Administration single or combination vac cine inc oral 14:34:43 CDT CPT-71899 Influenza split virus > age 3 14:34:43 CDT CPT-J1070 Depo Testosterone 100 mg 17:37:13 CDT 01/11 CPT-12137 Abx/Therapy Injection 17:37:13 CDT CPT-52421 Venipuncture Draw Fee 16:30:13 CDT CPT-19832 Venipuncture Draw Fee 16:29:43 CDT CPT-J1070 Depo Testosterone 100 mg 14:45:38 CDT 01/11
--- OUTSIDE RECORDS SUMMARY | 2019-10-27 12:43 | XMS REPORT | Clinical Summary ---
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 Benign neoplasm of colon PERIPHERAL NEUROPATHY 356.9 [...] y atherosclerosis of unspecified type of vessel, [place] or graft OTH NONSPC ABN FINDNG RAD&OTH [...] MISC Test twice a day LANCET S 09936376198 Active Baltazar Childers MD Active TRUEDRAW LANCING DEVICE MISC Test twice a day L ANCET DEVICES 46617148392 Active Baltazar Childers MD Active TRUETRACK TEST STRP Test twice a day GLUCOSE BLOO D 57594600066 Active Baltazar Childers MD Active TRUETRACK BLOOD GLUCOSE W/DEVICE KIT Test twice a day BLOOD GLUCOSE MONITORING SUPPL 64283968731 Active Bella Suarez APRN Active HYDROCODONE-ACETAMINOPHEN 7.5-325 MG TABS Take 1 tab every 6-8 hour s PRN HYDROCODONE-ACETAMINOPHEN 47298098728 Active Baltazar Childers MD Active NORTRIPTYLINE HCL 50 MG CAPS 1 every night for neuropathy 4 NORTRIPTYLINE HCL 70883797643 Active Bella Suarez APRN Active GABAPENTIN 300 MG CAPS 1 three times a day GABAPE NTIN 53664473249 Active Baltazar Childers MD Active GABAPENTIN 300 MG CAPS 1 po qd x 2 days, then 1 po BID x 2 d ays, then 1 po TID GABAPENTIN 88334066145 No Longer Active Baltazar silverman MD Active TRAMADOL HCL 50 MG TABS 1 twice a day as needed for pain TRAMADOL HCL 92626453483 Active Baltazar Childers MD Active NAPROXEN 500 MG TABS 1 tablet by mouth twice daily NAPROXEN 78548416321 No Longer Active Baltzaar Childers MD Active PROAIR HFA 108 (90 BASE) MCG/ACT AERS 2 puffs four times a d ay as needed ALBUTEROL SULFATE 95360286747 Active Baltazar Childers MD Active DEPO-TESTOSTERONE 200 MG/ML OIL as directed RUFINO TOSTERONE CYPIONATE 10162462972 No Longer Active Baltazar Childers MD Active LIPITOR 20 MG TABS Take one by mouth daily in evening ATORVASTATIN CALCIUM 19867743280 No Longer Active Baltazar Childers MD Activ e CRESTOR 10 MG TABS 1 by mouth every day R OSUVASTATIN CALCIUM 75049509582 No Longer Active Baltazar Childers MD Activ e PHENTERMINE HCL 37.5 MG TABS Take one by mouth daily 2 PHENTERMINE HCL 60549489385 No Longer Active Baltazar Childers MD Activ e ROBAXIN-750 750 MG TABS Take one by mouth daily ME THOCARBAMOL 87235815703 Active Baltazar Childers MD Active TIZANIDINE HCL 4 MG TABS 1 daily as needed for muscle spasm 2011 TIZANIDINE HCL 00443049052 No Longer Active Dawna Salazar RN Active tarpipeUCH ULTRA BLUE STRP Test twice a day GLUCO SE BLOOD 31038305235 Active Baltazar Childers MD Active [id number] 50-325-40 MG TABS 1 four time s a day as needed for heacache [id number] 81158561919 Active Baltazar Childers MD Active SUMATRIPTAN SUCCINATE 100 MG TABS 1 tablet by mouth at onset of migraine as needed SUMATRIPTAN SUCCINATE 11042211430 Active Baltazar barron MD Active LORATADINE 10 MG TABS Take one by mouth daily LORATADINE 55320410581 Active Baltazar Childers MD Active FUROSEMIDE 40 MG TABS Take one by mouth daily FUROSEMIDE 76773458372 Active Baltazar Childers MD Active LISINOPRIL 20 MG TABS Take one by mouth daily at bedtime LISINOPRIL 67094487538 Active Bella Suarez APRN Active OMEPRAZOLE 20 MG CPDR Take one by mouth daily OMEPRAZOLE 57858125386 Active Baltazar Childers MD Active HYDROXYZINE HCL 25 MG TABS Take one by mouth daily HYDROXYZINE HCL 50589344206 Active Baltazar Childers MD Active GLIPIZIDE 10 MG TABS 1 tablet by mouth twice daily GLIPIZIDE 75215542408 Active Bella Suarez APRN Active ALPRAZOLAM 1 MG TABS 1 tablet by mouth daily at bedtime for restles s leg ALPRAZOLAM 48166445398 Active Baltazar Childers MD Active METFORMIN HCL 1000 MG TABS Take one by mouth twice daily METFORMIN HCL 37034522543 Active Bella Suarez SUPERVISOR [employer]SET PLATE PREPARATION Active TIZANIDINE HCL 4 MG TABS 1 daily as needed for muscle spasm 2011 TIZANIDINE HCL 4 MG TABS 316193 TIZANIDINE HCL Inactiv e PHENTERMINE HCL 37.5 MG TABS Take one by mouth daily 2 PHENTERMINE HCL 37.5 MG TABS 012739 PHENTERMINE HCL Inactive CRESTOR 10 MG TABS 1 by mouth every day C RESTOR 10 MG TABS ROSUVASTATIN CALCIUM Inactive LIPITOR 20 MG TABS Take one by mouth daily in evening LIPITOR 20 MG TABS 371542 ATORVASTATIN CALCIUM Inactive DEPO-TESTOSTERONE 200 MG/ML OIL as directed 8 DEPO-TESTOSTERONE 200 MG/ML OIL 394641 TESTOSTERONE CYPIONATE Inactive NAPROXEN 500 MG TABS 1 tablet by mouth twice daily 201 07/27/22 NAPROXEN 500 MG TABS 101365 NAPROXEN Inactive GABAPENTIN 300 MG CAPS 1 po qd x 2 days, then 1 po BID x 2 d ays, then 1 po TID GABAPENTIN 300 MG CAPS 546639 GABAPENTIN Inact amie Immunizations Vaccine Administration Date Value Standard Floyd cription pneumococcal immunization administered Pneumovax 23 [CVX33] pneumococcal polysaccharide vaccine, 23 valent Seasonal influenza vaccine, injectable, containing preservative, for > 3 years old (Afluria, FluLaval, Fluzone, Fluvirin, Fluarix, Agriflu(>= 18 yo)) Fluzone (>3 yrs.) [LVV258] Influenza, seasonal, inject able Seasonal influenza vaccine, injectable, containing preservative, for > 3 years old (Afluria, FluLaval, Fluzone, Fluvirin, Fluarix, Agriflu(>= 18 yo)) Fluzone (>3 yrs.) [RUA560] Influenza, seasonal, inject able Vital Signs Date [...] Panel - Chemistry sodium, serum 139 mmol/L 482-993 3968/01/20 potassium, serum 5.3 mmol/L 3.5-5.2 chloride, serum [...] mg/g mg/g{creat} 0-29 cholesterol, serum 319 mg/dL 880-207 3747/08/21 triglyceride, serum, fasting 546 mg/dL 30-200 HDL cholesterol, serum 39 mg/dL 32-96 LDL cholesterol, serum 167.00 mg/dL 5.00-130.00 hemoglobin A1C, blood, as % of total hemoglobin 7.7 % 4.3-6.0 sodium, serum 138 mmol/L 258-663 5715/08/21 potassium, serum 4.3 mmol/L 3.5-5.2 chloride, serum [...] 0-19 Encounters Code Encounter Date Provider Facility CPT-63441 Level 4 Est. Patient 14:15:19 CDT Baltaazr Childers MD [facility] CPT-25401 Level 4 Est. Patient 12:20:13 CDT Baltazar Childers MD [facility] CPT-11226 Level 4 Est. Patient 14:52:45 FLOORWORKER LASTING Baltazar Childers MD [facility] CPT-27962 Level 4 Est. Patient 14:18:34 FLOORWORKER LASTING Baltazar Childers MD [facility] CPT-50271 Level 4 Est. Patient 15:18:29 CDT Baltazar Childers MD [facility] CPT-75319 Level 3 Est. Patient 12:45:34 CDT Baltazar Childers MD [facility] CPT-05878 Level 3 Est. Patient 10:10:11 CDT Baltazar Childers MD [facility] CPT-43380 Level 3 Est. Patient 14:07:50 CDT Baltazar Childers MD [facility] CPT-36333 Level 4 Est. Patient 12:26:10 FLOORWORKER LASTING Baltazar Childers MD [facility] CPT-71415 Level 4 Est. Patient 14:45:38 CDT Baltazar Childers MD [facility] CPT-00366 Level 4 New Patient 12:30:48 CDT Baltazar hinton MD [facility] Procedures Code Procedure Name Date Entry Date Standard Desc ription CPT-51653 Venipuncture Draw Fee 12:10:27 FLOORWORKER LASTING CPT-13901 Fluzone Quadrivalent Intramuscular Suspe nsion 0.5 ML 10:49:13 CDT CPT-38400 First Vx Component - Ix admi n via ID IM or jet inj without physician counseling 15:17:19 FLOORWORKER LASTING CPT-03884 Pneumovax 23 15:17:19 FLOORWORKER LASTING CPT-69398 Pneumovax 14:52:45 FLOORWORKER LASTING CPT-41643 Venipuncture Draw Fee 14:06:30 FLOORWORKER LASTING CPT-000 Give Appropriate Flu Vaccine 14:18:34 FLOORWORKER LASTING 2 CPT-27703 Administration single or combination vac cine inc oral 14:46:00 FLOORWORKER LASTING CPT-34816 Influenza split virus > age 3 14:46:00 FLOORWORKER LASTING CPT-OV Office Visit 19:13:16 CDT CPT-37485 Zostavax 18:41:56 CDT CPT-66697 Administration single or combination vac cine inc oral 12:56:39 CDT CPT-42204 Zoster Vaccine (Zostavax) 12:56:39 CDT 2012 CPT-05584 Venipuncture Draw Fee 10:58:57 CDT CPT-01173 Sono pelvis non OB uterus ovaries cervix 17:45:04 CDT CPT-81676 Sono retroperitoneal complete kidneys an d bladder 17:14:36 CDT CPT-OV Office Visit 14:59:38 FLOORWORKER LASTING CPT-J1070 Depo Testosterone 100 mg 14:50:13 CDT 03/05 CPT-34821 Abx/Therapy Injection 14:50:13 CDT CPT-39770 Administration single or combination vac cine inc oral 14:34:43 CDT CPT-33491 Influenza split virus > age 3 14:34:43 CDT CPT-J1070 Depo Testosterone 100 mg 17:37:13 CDT 01/11 CPT-15732 Abx/Therapy Injection 17:37:13 CDT CPT-52994 Venipuncture Draw Fee 16:30:13 CDT CPT-92246 Venipuncture Draw Fee 16:29:43 CDT CPT-J1070 Depo Testosterone 100 mg 14:45:38 CDT 01/11
--- OUTSIDE RECORDS SUMMARY | 2019-10-27 12:43 | XMS REPORT | Clinical Summary ---
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 Benign neoplasm of colon PERIPHERAL NEUROPATHY 356.9 [...] ronary atherosclerosis of unspecified type of vessel, [place] or graft OTH NONSPC ABN FINDNG [...] three times a day 201 12/03/26 GABAPENTIN 53083261479 No Longer Active Baltazar Childers MD Activ e LISINOPRIL 20 MG ORAL TABLET 1 tablet by mouth daily at night 2016 LISINOPRIL 29614403198 Active Baltazar Childers MD Active ZITHROMAX Z-ISAIAS 250 MG ORAL TABLET Take two tablets to day and then 1 tablet daily for 4 days AZITHROMYCIN 48190450437 No Longer A ctive Baltazar Childers MD Active LANTUS SOLOSTAR 100 UNIT/ML SUBCUTANEOUS SOLUTION PEN- INJECTOR 30 units SC daily INSULIN GLARGINE 95019140701 Active Baltazar Childers MD Active AMLODIPINE BESYLATE 5 MG ORAL TABLET 1 tab daily for HTN AMLODIPINE BESYLATE 73045005496 Active Baltazar Childers MD Active SYNTHROID 100 MCG ORAL TABLET 1 tablet by mouth daily LEVOTHYROXINE SODIUM 72787672883 Active Baltazar Childers MD Active GLIPIZIDE 10 MG ORAL TABLET take 2 tablets twice daily GLIPIZIDE 02821024910 Active Baltazar Childers MD Active SUCRALFATE 1 GM ORAL TABLET 1 four times a day to coat the stoma ch SUCRALFATE 04613279371 No Longer Active Baltazar Childers MD Active PEN NEEDLES 31G X 6 MM use 1 daily INSULIN PEN NE EDLE 98574419385 Active KENDALL Juarez Active CELINA SOLOSTNAKITA 300 UNIT/ML SUBCUTANEOUS SOLUTION PEN- INJECTOR 10 units SC daily INSULIN GLARGINE 89838120300 No Longer Active Rola Godinez RMA Active NAPROXEN SODIUM 220 MG ORAL TABLET 1 three times a day as needed NAPROXEN SODIUM 57752726872 No Longer Active Baltazar Childers MD Active ATORVASTATIN CALCIUM 20 MG ORAL TABLET Take 1 tab daily ATORVASTATIN CALCIUM 58499112281 Active Baltazar Childers MD A ctive FUROSEMIDE 40 MG ORAL TABLET Take one by mouth daily FUROSEMIDE 76062746186 Active Baltazar Childers MD Active LISINOPRIL 20 MG ORAL TABLET Take one by mouth daily at bedtime LISINOPRIL 51774994773 No Longer Active Baltazar Childers MD Active ONETOUCH ULTRA BLUE IN VITRO STRIP Test twice a day 07/11/11 GLUCOSE BLOOD 70647087134 No Longer Active Baltazar Childers MD Acti ve TRUEPLUS LANCETS 33G Test twice a day LANCETS 3565982 9122 Active KENDALL Juarez Active TRUEDRAW LANCING DEVICE Test twice a day LANCET DEVICES 41562711442 Active Baltazar Childers MD Active TRUETRACK TEST IN VITRO STRIP Test twice a day GLUCOSE BLOOD 85410694345 Active KENDALL Juarez Active TRUETRACK BLOOD GLUCOSE w/Device KIT Test twice a day BLOOD GLUCOSE MONITORING SUPPL 66552790496 Active Baltazar Childers MD Activ e HYDROCODONE-ACETAMINOPHEN 7.5-325 MG ORAL TABLET Take 1 tab every 6-8 hours PRN HYDROCODONE-ACETAMINOPHEN 70558727044 Active Baltazar Nickerson MD Active NORTRIPTYLINE HCL 50 MG ORAL CAPSULE 1 every night for neuropathy 2 NORTRIPTYLINE HCL 29511976553 Active Baltazar Childers MD Acti ve GABAPENTIN 300 MG ORAL CAPSULE 1 po qd x 2 days, then 1 po BID x 2 days, then 1 po TID GABAPENTIN 74572972300 No Longer Active Baltazar Childers MD Active TRAMADOL HCL 50 MG ORAL TABLET 1 twice a day as needed for pain 201 07/27/28 TRAMADOL HCL 35027737563 Active Baltazar Childers MD Active NAPROXEN 500 MG ORAL TABLET 1 tablet by mouth twice daily NAPROXEN 66838125219 No Longer Active Baltazar Childers MD Active PROAIR HFA 108 (90 Base) MCG/ACT INHALATION AEROSOL SO LUTION 2 puffs four times a day as needed ALBUTEROL SULFATE 05269694069 Active KENDALL Bowie Active DEPO-TESTOSTERONE 200 MG/ML INTRAMUSCULAR SOLUTION as directed TESTOSTERONE CYPIONATE 24737487882 No Longer Active Baltazar Childers MD Active LIPITOR 20 MG ORAL TABLET Take one by mouth daily in evening ATORVASTATIN CALCIUM 67304153914 No Longer Active Baltazar Childers MD Active CRESTOR 10 MG ORAL TABLET 1 by mouth every day ROSUVASTATIN CALCIUM 64370735762 No Longer Active Baltazar Childers MD Active PHENTERMINE HCL 37.5 MG ORAL TABLET Take one by mouth daily PHENTERMINE HCL 36419792565 No Longer Active Baltazar Childers MD Ac tive ROBAXIN-750 750 MG ORAL TABLET Take one by mouth daily METHOCARBAMOL 97369803955 Active Baltazar Childers MD Active TIZANIDINE HCL 4 MG ORAL TABLET 1 daily as needed for muscle spa sm TIZANIDINE HCL 68238657625 No Longer Active Dawna Salazar RN Active [id number]-PPSNPHIF 50-325-40 MG ORAL TABLET 1 fo ur times a day as needed for heacache [id number] 08046239965 Active Baltazar Childers MD Active SUMATRIPTAN SUCCINATE 100 MG ORAL TABLET 1 tablet by m outh at onset of migraine as needed SUMATRIPTAN SUCCINATE 25738308074 Active KENDALL Restrepo Active LORATADINE 10 MG ORAL TABLET Take one by mouth daily LORATADINE 09383210740 Active Baltazar Childers MD Active OMEPRAZOLE 20 MG ORAL CAPSULE DELAYED RELEASE Take one by mouth jostin ly OMEPRAZOLE 74304871508 Active Baltazar Childers MD Active HYDROXYZINE HCL 25 MG ORAL TABLET Take one by mouth daily HYDROXYZINE HCL 83343386728 Active Baltazar Childers MD Active ALPRAZOLAM 1 MG ORAL TABLET 1 [facility] ALPRAZOLAM 69460225963 Active Baltazar Childers MD Active METFORMIN HCL 1000 MG ORAL TABLET Take one by mouth twice daily METFORMIN HCL 60577705297 Active Baltazar Childers MD Active TIZANIDINE HCL 4 MG ORAL TABLET 1 daily as needed for muscle spa sm TIZANIDINE HCL 4 MG ORAL TABLET 088001 TIZANIDINE HCL Inactive PHENTERMINE HCL 37.5 MG ORAL TABLET Take one by mouth daily PHENTERMINE HCL 37.5 MG ORAL TABLET 214932 PHENTERMINE HCL Inac tive CRESTOR 10 MG ORAL TABLET 1 by mouth every day CRESTOR 10 MG ORAL TABLET 050178 ROSUVASTATIN CALCIUM Inactive LIPITOR 20 MG ORAL TABLET Take one by mouth daily in evening LIPITOR 20 MG ORAL TABLET 553925 ATORVASTATIN CALCIUM Inactive DEPO-TESTOSTERONE 200 MG/ML INTRAMUSCULAR SOLUTION as directed DEPO-TESTOSTERONE 200 MG/ML INTRAMUSCULAR SOLUTION 720625 RUFINO TOSTERONE CYPIONATE Inactive NAPROXEN 500 MG ORAL TABLET 1 tablet by mouth twice daily NAPROXEN 500 MG ORAL TABLET 147010 NAPROXEN Inactive GABAPENTIN 300 MG ORAL CAPSULE 1 po qd x 2 days, then 1 po BID x 2 days, then 1 po TID GABAPENTIN 300 MG ORAL CAPSULE 688349 GABAP ENTIN Inactive ONETOUCH ULTRA BLUE IN VITRO STRIP Test twice a day 07/11/11 ONETOUCH ULTRA BLUE IN VITRO STRIP GLUCOSE BLOOD Inact amie NAPROXEN SODIUM 220 MG ORAL TABLET 1 three times a day as needed NAPROXEN SODIUM 220 MG ORAL TABLET 210879 NAPROXEN SODI UM Inactive TOUJEO SOLOSTAR 300 UNIT/ML SUBCUTANEOUS SOLUTION PEN- INJECTOR 10 units SC daily TOUJEO SOLOSTAR 300 UNIT/ML SUBCUTANEOUS SOLUTION PEN-INJECTOR INSULIN GLARGINE Inactive SUCRALFATE 1 GM ORAL TABLET 1 four times a day to coat the stoma ch SUCRALFATE 1 GM ORAL TABLET 484397 SUCRALFATE Inac tive GABAPENTIN 300 MG ORAL CAPSULE 1 three times a day 201 12/03/26 GABAPENTIN 300 MG ORAL CAPSULE 485318 GABAPENTIN Inactive ZITHROMAX Z-ISAIAS 250 MG ORAL TABLET Take two tablets to day and then 1 tablet daily for 4 days ZITHROMAX Z-ISAIAS 250 MG ORAL TAB LET 991086 AZITHROMYCIN Inactive Immunizations Vaccine Administration Date Value Standard Floyd cription pneumococcal immunization administered Pneumovax 23 [CVX33] pneumococcal polysaccharide vaccine, 23 valent Seasonal influenza vaccine, injectable, containing preservative, for > 3 years old (Afluria, FluLaval, Fluzone, Fluvirin, Fluarix, Agriflu(>= 18 yo)) Fluzone (>3 yrs.) [DLH301] Influenza, seasonal, inject able Seasonal influenza vaccine, injectable, containing preservative, for > 3 years old (Afluria, FluLaval, Fluzone, Fluvirin, Fluarix, Agriflu(>= 18 yo)) Fluzone (>3 yrs.) [SSA219] Influenza, seasonal, inject able Vital Signs Date [...] C - Chemistry sodium, serum 143 mmol/L 524-120 8711/06/19 potassium, serum 5.9 mmol/L 3.5-5.2 chloride, serum 105 mmol/L 98-107 carbon dioxide, venous blood 30.2 mmol/L 21.0-32 .0 blood glucose 189 mg/dL 65-110 calcium, serum 9.7 mg/dL 8.5-10.1 urea nitrogen, blood 37 mg/dL 7-18 creatinine, serum 2.11 mg/dL 0.55-1.30 hemoglobin A1C, blood, as % of total hemoglobin 8.2 % 4.3-6.0 Lab Report: CBC, Renal Panel - Chemistry sodium, serum 142 mmol/L 544-966 7883/08/11 potassium, serum 4.8 mmol/L 3.5-5.2 chloride, serum [...] (L) - Chemistry cholesterol, serum 209 mg/dL 675-297 6715/12/27 triglyceride, serum, fasting 329 mg/dL 30-200 HDL cholesterol, serum 56 mg/dL 32-60 LDL cholesterol, serum 87 mg/dL 0-130 TSH 3.60 m[iU]/mL 0.36-3.74 Encounters Code Encounter Date Provider Facility CPT-66264 Level 4 Est. Patient 17:05:37 CDT Baltazar Childers MD [facility] CPT-65723 Level 4 Est. 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 Patient 12:25:11 CDT Baltazar Childers MD [facility] CPT-93495 Level 4 Est. Patient 14:22:31 CDT Baltazar Childers MD [facility]-43486 Level 4 Est. Patient 15:44:38 CDT Shonna Parker APRN [facility]-08517 Level 4 Est. Patient 11:34:17 CDT Baltazar Childers MD [facility]-11160 Level 3 Est. Patient 16:40:40 CDT Baltazar Childers MD [facility]-37537 Level 4 Est. Patient 10:41:24 CDT Baltazar Childers MD [facility]-38902 Level 4 Est. Patient 16:01:48 CDT Baltazar Childers MD [facility]-57673 Level 4 Est. Patient 16:54:07 PATENT PROSECUTION ATTORNEY Baltazar Childers MD [facility]-88283 Level 4 Est. Patient 15:42:12 CDT Baltazar Childers MD [facility] CPT-46543 Level 4 Est. Patient 11:29:55 CDT Baltazar Childers MD [facility] CPT-42468 Level 4 Est. Patient 14:15:19 CDT Baltazar Childers MD [facility]-28713 Level 4 Est. Patient 12:20:13 CDT Baltazar Childers MD [facility]-71449 Level 4 Est. Patient 14:52:45 PATENT PROSECUTION ATTORNEY Baltazar Childers MD [facility] CPT-52277 Level 4 Est. Patient 14:18:34 PATENT PROSECUTION ATTORNEY Baltazar Childers MD [facility]-08468 Level 4 Est. Patient 15:18:29 CDT Baltazar Childers MD [facility]-84998 Level 3 Est. Patient 12:45:34 CDT Baltazar Childers MD [facility]-67078 Level 3 Est. Patient 10:10:11 CDT Baltazar Childers MD [facility] CPT-94615 Level 3 Est. Patient 14:07:50 CDT Baltazar Childers MD [facility] CPT-78797 Level 4 Est. Patient 12:26:10 PATENT PROSECUTION ATTORNEY Baltazar Childers MD [facility] CPT-79903 Level 4 Est. Patient 14:45:38 CDT Baltazar Childers MD [facility] CPT-79938 Level 4 New Patient 12:30:48 CDT Baltazar hinton MD [facility] Procedures Code Procedure Name Date Entry Date Standard Desc ription CPT-82912 First Vx - Ix admin via ID I M or jet injects without counseling by physician 13:08:59 CDT CPT-96624 Fluzone Quadrivalent Intramuscular Suspe nsion 0.5 ML 13:08:59 CDT CPT-87922 Venipuncture Draw Fee 12:04:12 CDT CPT-24577 Lipid - LAB USE ONLY 17:39:15 PATENT PROSECUTION ATTORNEY 9 CPT-00784 HGBA1C - LAB USE ONLY 17:39:15 PATENT PROSECUTION ATTORNEY CPT-37049 CMP - LAB USE ONLY 17:39:14 PATENT PROSECUTION ATTORNEY CPT-96371 Venipuncture Draw Fee 17:39:14 PATENT PROSECUTION ATTORNEY CPT-41664 First Vx - Ix admin via ID I M or jet injects without counseling by physician 16:55:17 PATENT PROSECUTION ATTORNEY CPT-23258 Fluzone Quadrivalent Intramuscular Suspe nsion 0.5 ML 16:55:17 PATENT PROSECUTION ATTORNEY CPT-18168 Renal Panel - LAB USE ONLY 17:39:20 CDT 201 10/31/07 CPT-49257 CBC - LAB USE ONLY 17:39:20 CDT CPT-02763 Venipuncture Draw Fee 17:39:20 CDT CPT-30946 Venipuncture Draw Fee 14:33:30 CDT CPT-16435 Renal Panel - LAB USE ONLY 14:33:30 CDT 201 10/31/07 CPT-98533 CBC - LAB USE ONLY 14:33:29 CDT CPT-58995 Venipuncture Draw Fee 14:50:21 PATENT PROSECUTION ATTORNEY CPT-62775 Immunization Single Admin 17:35:35 CDT 2014 CPT-26853 Fluzone Quadrivalent preservative free ( >=3yrs.) 17:35:35 CDT CPT-50433 Venipuncture Draw Fee 12:10:27 PATENT PROSECUTION ATTORNEY CPT-29027 Fluzone Quadrivalent Intramuscular Suspe nsion 0.5 ML 10:49:13 CDT CPT-24580 First Vx Component - Ix admi n via ID IM or jet inj without physician counseling 15:17:19 PATENT PROSECUTION ATTORNEY CPT-17549 Pneumovax 23 15:17:19 PATENT PROSECUTION ATTORNEY CPT-23585 Pneumovax 14:52:45 PATENT PROSECUTION ATTORNEY CPT-85615 Venipuncture Draw Fee 14:06:30 PATENT PROSECUTION ATTORNEY CPT-000 Give Appropriate Flu Vaccine 14:18:34 PATENT PROSECUTION ATTORNEY 2 CPT-67499 Administration single or combination vac cine inc oral 14:46:00 PATENT PROSECUTION ATTORNEY CPT-29217 Influenza split virus > age 3 14:46:00 PATENT PROSECUTION ATTORNEY CPT-OV Office Visit 19:13:16 CDT CPT-09180 Zostavax 18:41:56 CDT CPT-09435 Administration single or combination vac cine inc oral 12:56:39 CDT CPT-69405 Zoster Vaccine (Zostavax) 12:56:39 CDT 2012 CPT-71713 Venipuncture Draw Fee 10:58:57 CDT CPT-69869 Sono pelvis non OB uterus ovaries cervix 17:45:04 CDT CPT-15486 Sono retroperitoneal complete kidneys an d bladder 17:14:36 CDT CPT-OV Office Visit 14:59:38 PATENT PROSECUTION ATTORNEY CPT-J1070 Depo Testosterone 100 mg 14:50:13 CDT 03/05 CPT-65088 Abx/Therapy Injection 14:50:13 CDT CPT-93352 Administration single or combination vac cine inc oral 14:34:43 CDT CPT-79514 Influenza split virus > age 3 14:34:43 CDT CPT-J1070 Depo Testosterone 100 mg 17:37:13 CDT 01/11 CPT-39305 Abx/Therapy Injection 17:37:13 CDT CPT-35633 Venipuncture Draw Fee 16:30:13 CDT CPT-92808 Venipuncture Draw Fee 16:29:43 CDT CPT-J1070 Depo Testosterone 100 mg 14:45:38 CDT 01/11
--- OUTSIDE RECORDS SUMMARY | 2019-10-27 12:44 | XMS REPORT | Clinical Summary ---
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 Benign neoplasm of colon PERIPHERAL NEUROPATHY [...] 1 tablet daily for 4 days AZITHROMYCIN 06730135401 Active Baltazar Wayne Active LANTUS SOLOSTAR 100 UNIT/ML SC SOPN 30 units SC daily INSULIN GLARGINE 75222132470 Active Baltazar Childers MD Active AMLODIPINE BESYLATE 5 MG ORAL TABS 1 tab daily for HTN AMLODIPINE BESYLATE 94585134999 Active Baltazar Childers MD Active SYNTHROID 0.1 MG TAB 1 tablet by mouth daily LE VOTHYROXINE SODIUM 82483817178 Active Baltazar Childers MD Active GLIPIZIDE 10 MG TAB take 2 tablets twice daily GLIPIZIDE 38893354047 Active Baltazar Childers MD Active SUCRALFATE 1 GM TABS 1 four times a day to coat the stomach 2015 SUCRALFATE 29288364398 No Longer Active Baltazar Childers MD Active PEN NEEDLES 31G X 6 MM MISC use 1 daily INSULIN PEN NEEDLE 71876738686 Active Gato Rae MD Active TOUJEO SOLOSTAR 300 UNIT/ML SC SOPN 10 units SC daily INSULIN GLARGINE 92929911483 No Longer Active Martita ARGUETA Active NAPROXEN SODIUM 220 MG ORAL TABS 1 three times a day as needed 2 NAPROXEN SODIUM 64796094780 No Longer Active Baltazar Childers MD Active ATORVASTATIN CALCIUM 20 MG ORAL TABS Take 1 tab daily ATORVASTATIN CALCIUM 90948550443 Active Baltazar Childers MD Active FUROSEMIDE 40 MG TABS Take one by mouth daily FUROSEMIDE 79422682673 Active Baltazar Childers MD Active LISINOPRIL 20 MG TABS Take one by mouth daily at bedtime LISINOPRIL 84744702437 No Longer Active Baltazar Childers MD Active ONETOUCH ULTRA BLUE STRP Test twice a day GLUCO SE BLOOD 89639761058 No Longer Active Baltazar Childers MD Active TRUEPLUS LANCETS 33G MISC Test twice a day LANCET S 00593918733 Active KENDALL Juarez Active TRUEDRAW LANCING DEVICE MISC Test twice a day L ANCET DEVICES 87151292421 Active Baltazar Childers MD Active TRUETRACK TEST STRP Test twice a day GLUCOSE BLOO D 45205398824 Active KENDALL Juarez Active TRUETRACK BLOOD GLUCOSE W/DEVICE KIT Test twice a day BLOOD GLUCOSE MONITORING SUPPL 02992117328 Active Baltazar Childers MD Activ e HYDROCODONE-ACETAMINOPHEN 7.5-325 MG TABS Take 1 tab every 6-8 hour s PRN HYDROCODONE-ACETAMINOPHEN 35445424929 Active Baltazar Childers MD Active NORTRIPTYLINE HCL 50 MG CAPS 1 every night for neuropathy 4 NORTRIPTYLINE HCL 23787190873 Active Baltazar Childers MD Acti ve GABAPENTIN 300 MG CAPS 1 three times a day GABAPE NTIN 43186674337 Active Baltazar Childers MD Active GABAPENTIN 300 MG CAPS 1 po qd x 2 days, then 1 po BID x 2 d ays, then 1 po TID GABAPENTIN 25186160208 No Longer Active Baltazar silverman MD Active TRAMADOL HCL 50 MG TABS 1 twice a day as needed for pain TRAMADOL HCL 14585901842 Active Baltazar Childers MD Active NAPROXEN 500 MG TABS 1 tablet by mouth twice daily NAPROXEN 75722136985 No Longer Active Baltazar Childers MD Active PROAIR HFA 108 (90 BASE) MCG/ACT AERS 2 puffs four times a d ay as needed ALBUTEROL SULFATE 83329684688 Active Baltazar Childers MD Active DEPO-TESTOSTERONE 200 MG/ML OIL as directed RUFINO TOSTERONE CYPIONATE 44679372058 No Longer Active Baltazar Childers MD Active LIPITOR 20 MG TABS Take one by mouth daily in evening ATORVASTATIN CALCIUM 90282463990 No Longer Active Baltazar Childers MD Activ e CRESTOR 10 MG TABS 1 by mouth every day R OSUVASTATIN CALCIUM 31537643680 No Longer Active Baltazar Childers MD Activ e PHENTERMINE HCL 37.5 MG TABS Take one by mouth daily 2 PHENTERMINE HCL 08491625083 No Longer Active Baltazar Childers MD Activ e ROBAXIN-750 750 MG TABS Take one by mouth daily ME THOCARBAMOL 71313317066 Active Baltazar Childers MD Active TIZANIDINE HCL 4 MG TABS 1 daily as needed for muscle spasm 2011 TIZANIDINE HCL 98597007574 No Longer Active Dawnatung Salazar RN Active [id number] 50-325-40 MG TABS 1 four time s a day as needed for heacache [id number] 62270010621 Active BethCÉSAR HazelTung Active SUMATRIPTAN SUCCINATE 100 MG TABS 1 tablet by mouth at onset of migraine as needed SUMATRIPTAN SUCCINATE 67902959219 Active Baltazar bynum MD Active LORATADINE 10 MG TABS Take one by mouth daily LORATADINE 48685545797 Active Baltazar Childers MD Active OMEPRAZOLE 20 MG CPDR Take one by mouth daily OMEPRAZOLE 02207061087 Active Baltazar Childers MD Active HYDROXYZINE HCL 25 MG TABS Take one by mouth daily HYDROXYZINE HCL 47644249510 Active Baltazar Childers MD Active ALPRAZOLAM 1 MG TABS 1 tablet by mouth daily at bedtime for restles s leg ALPRAZOLAM 09444708823 Active Baltazar Childers MD Active METFORMIN HCL 1000 MG TABS Take one by mouth twice daily METFORMIN HCL 27732715033 Active Baltazar Childers MD Active TIZANIDINE HCL 4 MG TABS 1 daily as needed for muscle spasm 2011 TIZANIDINE HCL 4 MG TABS 626285 TIZANIDINE HCL Inactiv e PHENTERMINE HCL 37.5 MG TABS Take one by mouth daily 2 PHENTERMINE HCL 37.5 MG TABS 323607 PHENTERMINE HCL Inactive CRESTOR 10 MG TABS 1 by mouth every day C RESTOR 10 MG TABS 461210 ROSUVASTATIN CALCIUM Inactive LIPITOR 20 MG TABS Take one by mouth daily in evening LIPITOR 20 MG TABS 400999 ATORVASTATIN CALCIUM Inactive DEPO-TESTOSTERONE 200 MG/ML OIL as directed 8 DEPO-TESTOSTERONE 200 MG/ML OIL 161072 TESTOSTERONE CYPIONATE Inactive NAPROXEN 500 MG TABS 1 tablet by mouth twice daily 201 07/27/22 NAPROXEN 500 MG TABS 867048 NAPROXEN Inactive GABAPENTIN 300 MG CAPS 1 po qd x 2 days, then 1 po BID x 2 d ays, then 1 po TID GABAPENTIN 300 MG CAPS 700196 GABAPENTIN Inact amie ONETOUCH ULTRA BLUE STRP Test twice a day ONETOUCH ULTRA BLUE STRP GLUCOSE BLOOD Inactive NAPROXEN SODIUM 220 MG ORAL TABS 1 three times a day as needed 2 NAPROXEN SODIUM 220 MG ORAL TABS 320875 NAPROXEN SODIUM Inactive TOUJEO SOLOSTAR 300 UNIT/ML SC SOPN 10 units SC daily TOUJEO SOLOSTAR 300 UNIT/ML SC SOPN INSULIN GLARGINE Inac tive SUCRALFATE 1 GM TABS 1 four times a day to coat the stomach 2015 SUCRALFATE 1 GM TABS 724221 SUCRALFATE Inactive Immunizations Vaccine Administration Date Value Standard Floyd cription pneumococcal immunization administered Pneumovax 23 [CVX33] pneumococcal polysaccharide vaccine, 23 valent Seasonal influenza vaccine, injectable, containing preservative, for > 3 years old (Afluria, FluLaval, Fluzone, Fluvirin, Fluarix, Agriflu(>= 18 yo)) Fluzone (>3 yrs.) [AYE020] Influenza, seasonal, inject able Seasonal influenza vaccine, injectable, containing preservative, for > 3 years old (Afluria, FluLaval, Fluzone, Fluvirin, Fluarix, Agriflu(>= 18 yo)) Fluzone (>3 yrs.) [EBA303] Influenza, seasonal, inject able Vital Signs Date [...] - Chem istry sodium, serum 139 mmol/L 876-434 7452/10/03 potassium, serum 4.7 mmol/L 3.5-5.2 chloride, serum 98 mmol/L 98-107 carbon dioxide, venous blood 28.7 mmol/L 21.0-32 .0 blood glucose 218 mg/dL 65-110 calcium, serum 9.8 mg/dL 8.5-10.1 urea nitrogen, blood 19 mg/dL 7-18 creatinine, serum 1.68 mg/dL 0.60-1.30 Lab Report: Basic Metabolic Panel, HGBA1 C - Chemistry sodium, serum 143 mmol/L 632-104 4241/06/19 potassium, serum 5.9 mmol/L 3.5-5.2 chloride, serum 105 mmol/L 98-107 carbon dioxide, venous blood 30.2 mmol/L 21.0-32 .0 blood glucose 189 mg/dL 65-110 calcium, serum 9.7 mg/dL 8.5-10.1 urea nitrogen, blood 37 mg/dL 7-18 creatinine, serum 2.11 mg/dL 0.55-1.30 hemoglobin A1C, blood, as % of total hemoglobin 8.2 % 4.3-6.0 Lab Report: CBC, Renal Panel - Chemistry sodium, serum 142 mmol/L 480-845 2399/08/11 potassium, serum 4.8 mmol/L 3.5-5.2 chloride, serum [...] Panel - Chemistry sodium, serum 143 mmol/L 652-085 8915/12/19 carbon dioxide, venous blood 32.5 mmol/L 21.0-32 .0 potassium, serum 4.9 mmol/L 3.5-5.2 chloride, serum 101 mmol/L 98-107 blood glucose 129 mg/dL 65-110 urea nitrogen, blood 18 mg/dL 7-18 creatinine, serum 1.79 mg/dL 0.55-1.30 alanine aminotransferase (SGPT), serum 34 U/L 12-78 aspartate aminotransferase (SGOT), serum 26 U/L 15-37 calcium, serum 8.9 mg/dL 8.5-10.1 bilirubin, serum, total 0.30 mg/dL 0.00-1.00 cholesterol, serum 214 mg/dL 327-000 2331/12/19 triglyceride, serum, fasting 351 mg/dL 30-200 HDL [...] 4.3-6.0 Encounters Code Encounter Date Provider Facility CPT-24961 Level 4 Est. Patient 12:25:11 CDT Baltazar Childers MD [facility] [place]-66474 Level 4 Est. Patient 14:22:31 CDT Baltazar Childers MD [facility]-19642 Level 4 Est. Patient 15:44:38 CDT Shonnajean Parker APRN [facility]-49438 Level 4 Est. Patient 11:34:17 CDT Baltazar Childers MD [facility]-76008 Level 3 Est. Patient 16:40:40 CDT Baltazar Childers MD [facility] [place]-55750 Level 4 Est. Patient 10:41:24 CDT Baltazar Childers MD [facility] [place]-01023 Level 4 Est. Patient 16:01:48 CDT Baltazar Childers MD [facility] [place]-90927 Level 4 Est. Patient 16:54:07 MEDICATION TECH Baltazar Childers MD [facility] [place]-96154 Level 4 Est. Patient 15:42:12 CDT Baltazar Childers MD [facility] CPT-81064 Level 4 Est. Patient 11:29:55 CDT Baltazar Childers MD [facility]-16136 Level 4 Est. Patient 14:15:19 CDT Baltazar Childers MD [facility]-85303 Level 4 Est. Patient 12:20:13 CDT Baltazar Childers MD [facility] CPT-96663 Level 4 Est. Patient 14:52:45 MEDICATION TECH Baltazar Childers MD [facility] CPT-11234 Level 4 Est. Patient 14:18:34 MEDICATION TECH Baltazar Childers MD [facility]-37310 Level 4 Est. Patient 15:18:29 CDT Baltazar Childers MD [facility]-88808 Level 3 Est. Patient 12:45:34 CDT Baltazar Childers MD [facility] CPT-72427 Level 3 Est. Patient 10:10:11 CDT Baltazar Childers MD [facility] CPT-22724 Level 3 Est. Patient 14:07:50 CDT Baltazar Childers MD [facility] CPT-93046 Level 4 Est. Patient 12:26:10 MEDICATION TECH Baltazar Childers MD [facility] CPT-17160 Level 4 Est. Patient 14:45:38 CDT Baltazar Childers MD [facility] CPT-53162 Level 4 New Patient 12:30:48 CDT Baltazar hinton MD [facility] Procedures Code Procedure Name Date Entry Date Standard Desc ription CPT-93293 First Vx - Ix admin via ID I M or jet injects without counseling by physician 13:08:59 CDT CPT-45024 Fluzone Quadrivalent Intramuscular Suspe nsion 0.5 ML 13:08:59 CDT CPT-77717 Venipuncture Draw Fee 12:04:12 CDT CPT-62645 Lipid - LAB USE ONLY 17:39:15 MEDICATION TECH 9 CPT-31055 HGBA1C - LAB USE ONLY 17:39:15 MEDICATION TECH CPT-20817 CMP - LAB USE ONLY 17:39:14 MEDICATION TECH CPT-17354 Venipuncture Draw Fee 17:39:14 MEDICATION TECH CPT-76948 First Vx - Ix admin via ID I M or jet injects without counseling by physician 16:55:17 MEDICATION TECH CPT-49577 Fluzone Quadrivalent Intramuscular Suspe nsion 0.5 ML 16:55:17 MEDICATION TECH CPT-83052 Renal Panel - LAB USE ONLY 17:39:20 CDT 201 10/31/07 CPT-63570 CBC - LAB USE ONLY 17:39:20 CDT CPT-29620 Venipuncture Draw Fee 17:39:20 CDT CPT-10294 Venipuncture Draw Fee 14:33:30 CDT CPT-07353 Renal Panel - LAB USE ONLY 14:33:30 CDT 201 10/31/07 CPT-30157 CBC - LAB USE ONLY 14:33:29 CDT CPT-06843 Venipuncture Draw Fee 14:50:21 MEDICATION TECH CPT-22922 Immunization Single Admin 17:35:35 CDT 2014 CPT-91994 Fluzone Quadrivalent preservative free ( >=3yrs.) 17:35:35 CDT CPT-98563 Venipuncture Draw Fee 12:10:27 MEDICATION TECH CPT-56355 Fluzone Quadrivalent Intramuscular Suspe nsion 0.5 ML 10:49:13 CDT CPT-63867 First Vx Component - Ix admi n via ID IM or jet inj without physician counseling 15:17:19 MEDICATION TECH CPT-10648 Pneumovax 23 15:17:19 MEDICATION TECH CPT-34649 Pneumovax 14:52:45 MEDICATION TECH CPT-73153 Venipuncture Draw Fee 14:06:30 MEDICATION TECH CPT-000 Give Appropriate Flu Vaccine 14:18:34 MEDICATION TECH 2 CPT-45890 Administration single or combination vac cine inc oral 14:46:00 MEDICATION TECH CPT-90348 Influenza split virus > age 3 14:46:00 MEDICATION TECH CPT-OV Office Visit 19:13:16 CDT CPT-32230 Zostavax 18:41:56 CDT CPT-87108 Administration single or combination vac cine inc oral 12:56:39 CDT CPT-66292 Zoster Vaccine (Zostavax) 12:56:39 CDT 2012 CPT-34267 Venipuncture Draw Fee 10:58:57 CDT CPT-20078 Sono pelvis non OB uterus ovaries cervix 17:45:04 CDT CPT-38638 Sono retroperitoneal complete kidneys an d bladder 17:14:36 CDT CPT-OV Office Visit 14:59:38 MEDICATION TECH CPT-J1070 Depo Testosterone 100 mg 14:50:13 CDT 03/05 CPT-25908 Abx/Therapy Injection 14:50:13 CDT CPT-37003 Administration single or combination vac cine inc oral 14:34:43 CDT CPT-72287 Influenza split virus > age 3 14:34:43 CDT CPT-J1070 Depo Testosterone 100 mg 17:37:13 CDT 01/11 CPT-01174 Abx/Therapy Injection 17:37:13 CDT CPT-43710 Venipuncture Draw Fee 16:30:13 CDT CPT-06284 Venipuncture Draw Fee 16:29:43 CDT CPT-J1070 Depo Testosterone 100 mg 14:45:38 CDT 01/11
--- OUTSIDE RECORDS SUMMARY | 2019-10-27 12:44 | XMS REPORT | Clinical Summary ---
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 Benign neoplasm of colon PERIPHERAL NEUROPATHY 356.9 [...] y atherosclerosis of unspecified type of vessel, [place] or graft OTH NONSPC ABN FINDNG RAD&OTH [...] MISC Test twice a day LANCET S 16935002455 Active Baltazar Childers MD Active TRUEDRAW LANCING DEVICE MISC Test twice a day L ANCET DEVICES 98743894373 Active Baltazar Childers MD Active TRUETRACK TEST STRP Test twice a day GLUCOSE BLOO D 19357503064 Active Baltazar Childers MD Active TRUETRACK BLOOD GLUCOSE W/DEVICE KIT Test twice a day BLOOD GLUCOSE MONITORING SUPPL 06922530404 Active Bella Suarez APRN Active HYDROCODONE-ACETAMINOPHEN 7.5-325 MG TABS Take 1 tab every 6-8 hour s PRN HYDROCODONE-ACETAMINOPHEN 12393324075 Active Baltazar Childers MD Active NORTRIPTYLINE HCL 50 MG CAPS 1 every night for neuropathy 4 NORTRIPTYLINE HCL 34157011098 Active Bella Suarez APRN Active GABAPENTIN 300 MG CAPS 1 three times a day GABAPE NTIN 42976490288 Active Baltazar Childers MD Active GABAPENTIN 300 MG CAPS 1 po qd x 2 days, then 1 po BID x 2 d ays, then 1 po TID GABAPENTIN 06627634104 No Longer Active Baltazar silverman MD Active TRAMADOL HCL 50 MG TABS 1 twice a day as needed for pain TRAMADOL HCL 84651579854 Active Baltazar Childers MD Active NAPROXEN 500 MG TABS 1 tablet by mouth twice daily NAPROXEN 84068020168 No Longer Active Baltazar Childers MD Active PROAIR HFA 108 (90 BASE) MCG/ACT AERS 2 puffs four times a d ay as needed ALBUTEROL SULFATE 59520392910 Active Baltazar Childers MD Active DEPO-TESTOSTERONE 200 MG/ML OIL as directed RUFINO TOSTERONE CYPIONATE 33887433778 No Longer Active Baltazar Childers MD Active LIPITOR 20 MG TABS Take one by mouth daily in evening ATORVASTATIN CALCIUM 70302884619 No Longer Active Baltazar Childers MD Activ e CRESTOR 10 MG TABS 1 by mouth every day R OSUVASTATIN CALCIUM 08416224229 No Longer Active Baltazar Childers MD Activ e PHENTERMINE HCL 37.5 MG TABS Take one by mouth daily 2 PHENTERMINE HCL 44753077282 No Longer Active Baltazar Childers MD Activ e ROBAXIN-750 750 MG TABS Take one by mouth daily ME THOCARBAMOL 31879687317 Active Baltazar Childers MD Active TIZANIDINE HCL 4 MG TABS 1 daily as needed for muscle spasm 2011 TIZANIDINE HCL 28061469565 No Longer Active Dawna Salazar RN Active SoundflavorUCH ULTRA BLUE STRP Test twice a day GLUCO SE BLOOD 83490986603 Active Baltazar Childers MD Active [id number] 50-325-40 MG TABS 1 four time s a day as needed for heacache [id number] 74033128743 Active Baltazar Childers MD Active SUMATRIPTAN SUCCINATE 100 MG TABS 1 tablet by mouth at onset of migraine as needed SUMATRIPTAN SUCCINATE 10754500041 Active Baltazar barron MD Active LORATADINE 10 MG TABS Take one by mouth daily LORATADINE 84561381764 Active Baltazar Childers MD Active FUROSEMIDE 40 MG TABS Take one by mouth daily FUROSEMIDE 02131054179 Active Baltazar Childers MD Active LISINOPRIL 20 MG TABS Take one by mouth daily at bedtime LISINOPRIL 62717910388 Active Bella Suarez APRN Active OMEPRAZOLE 20 MG CPDR Take one by mouth daily OMEPRAZOLE 48953730871 Active Baltazar Childers MD Active HYDROXYZINE HCL 25 MG TABS Take one by mouth daily HYDROXYZINE HCL 52789533651 Active Baltazar Childers MD Active GLIPIZIDE 10 MG TABS 1 tablet by mouth twice daily GLIPIZIDE 72350395109 Active Baltazar Childers MD Active ALPRAZOLAM 1 MG TABS 1 tablet by mouth daily at bedtime for restles s leg ALPRAZOLAM 69008203284 Active Baltazar Childers MD Active METFORMIN HCL 1000 MG TABS Take one by mouth twice daily METFORMIN HCL 32088763907 Active Baltazar Childers MD Active TIZANIDINE HCL 4 MG TABS 1 daily as needed for muscle spasm 2011 TIZANIDINE HCL 4 MG TABS 211664 TIZANIDINE HCL Inactiv e PHENTERMINE HCL 37.5 MG TABS Take one by mouth daily 2 PHENTERMINE HCL 37.5 MG TABS 202028 PHENTERMINE HCL Inactive CRESTOR 10 MG TABS 1 by mouth every day C RESTOR 10 MG TABS ROSUVASTATIN CALCIUM Inactive LIPITOR 20 MG TABS Take one by mouth daily in evening LIPITOR 20 MG TABS 555881 ATORVASTATIN CALCIUM Inactive DEPO-TESTOSTERONE 200 MG/ML OIL as directed 8 DEPO-TESTOSTERONE 200 MG/ML OIL 675176 TESTOSTERONE CYPIONATE Inactive NAPROXEN 500 MG TABS 1 tablet by mouth twice daily 201 07/27/22 NAPROXEN 500 MG TABS 697194 NAPROXEN Inactive GABAPENTIN 300 MG CAPS 1 po qd x 2 days, then 1 po BID x 2 d ays, then 1 po TID GABAPENTIN 300 MG CAPS 652806 GABAPENTIN Inact amie Immunizations Vaccine Administration Date Value Standard Floyd cription pneumococcal immunization administered Pneumovax 23 [CVX33] pneumococcal polysaccharide vaccine, 23 valent Seasonal influenza vaccine, injectable, containing preservative, for > 3 years old (Afluria, FluLaval, Fluzone, Fluvirin, Fluarix, Agriflu(>= 18 yo)) Fluzone (>3 yrs.) [JLS816] Influenza, seasonal, inject able Seasonal influenza vaccine, injectable, containing preservative, for > 3 years old (Afluria, FluLaval, Fluzone, Fluvirin, Fluarix, Agriflu(>= 18 yo)) Fluzone (>3 yrs.) [MMM054] Influenza, seasonal, inject able Vital Signs Date [...] Panel - Chemistry sodium, serum 139 mmol/L 762-014 4670/01/20 potassium, serum 5.3 mmol/L 3.5-5.2 chloride, serum [...] mg/g mg/g{creat} 0-29 cholesterol, serum 319 mg/dL 278-359 4796/08/21 triglyceride, serum, fasting 546 mg/dL 30-200 HDL cholesterol, serum 39 mg/dL 32-96 LDL cholesterol, serum 167.00 mg/dL 5.00-130.00 hemoglobin A1C, blood, as % of total hemoglobin 7.7 % 4.3-6.0 sodium, serum 138 mmol/L 507-440 2243/08/21 potassium, serum 4.3 mmol/L 3.5-5.2 chloride, serum [...] 0-19 Encounters Code Encounter Date Provider Facility CPT-66576 Level 4 Est. Patient 14:15:19 CDT Baltazar Childers MD [facility] CPT-48164 Level 4 Est. Patient 12:20:13 CDT Baltazar Childers MD [facility] CPT-28091 Level 4 Est. Patient 14:52:45 DATA DEVELOPER Baltazar Childers MD [facility] CPT-91655 Level 4 Est. Patient 14:18:34 DATA DEVELOPER Baltazar Childers MD [facility] CPT-53953 Level 4 Est. Patient 15:18:29 CDT Baltazar Childers MD [facility] CPT-51761 Level 3 Est. Patient 12:45:34 CDT Baltazar Childers MD [facility] CPT-08908 Level 3 Est. Patient 10:10:11 CDT Baltazar Childers MD [facility] CPT-83290 Level 3 Est. Patient 14:07:50 CDT Baltazar Childers MD [facility] CPT-08095 Level 4 Est. Patient 12:26:10 DATA DEVELOPER Baltazar Childers MD [facility] CPT-98318 Level 4 Est. Patient 14:45:38 CDT Baltazar Childers MD [facility] CPT-44967 Level 4 New Patient 12:30:48 CDT Baltazar hinton MD [facility] Procedures Code Procedure Name Date Entry Date Standard Desc ription CPT-06179 Venipuncture Draw Fee 12:10:27 DATA DEVELOPER CPT-19197 Fluzone Quadrivalent Intramuscular Suspe nsion 0.5 ML 10:49:13 CDT CPT-92180 First Vx Component - Ix admi n via ID IM or jet inj without physician counseling 15:17:19 DATA DEVELOPER CPT-49536 Pneumovax 23 15:17:19 DATA DEVELOPER CPT-73461 Pneumovax 14:52:45 DATA DEVELOPER CPT-01061 Venipuncture Draw Fee 14:06:30 DATA DEVELOPER CPT-000 Give Appropriate Flu Vaccine 14:18:34 DATA DEVELOPER 2 CPT-37414 Administration single or combination vac cine inc oral 14:46:00 DATA DEVELOPER CPT-74802 Influenza split virus > age 3 14:46:00 DATA DEVELOPER CPT-OV Office Visit 19:13:16 CDT CPT-28712 Zostavax 18:41:56 CDT CPT-04459 Administration single or combination vac cine inc oral 12:56:39 CDT CPT-89797 Zoster Vaccine (Zostavax) 12:56:39 CDT 2012 CPT-24271 Venipuncture Draw Fee 10:58:57 CDT CPT-00919 Sono pelvis non OB uterus ovaries cervix 17:45:04 CDT CPT-81288 Sono retroperitoneal complete kidneys an d bladder 17:14:36 CDT CPT-OV Office Visit 14:59:38 DATA DEVELOPER CPT-J1070 Depo Testosterone 100 mg 14:50:13 CDT 03/05 CPT-05795 Abx/Therapy Injection 14:50:13 CDT CPT-13463 Administration single or combination vac cine inc oral 14:34:43 CDT CPT-56620 Influenza split virus > age 3 14:34:43 CDT CPT-J1070 Depo Testosterone 100 mg 17:37:13 CDT 01/11 CPT-74785 Abx/Therapy Injection 17:37:13 CDT CPT-63996 Venipuncture Draw Fee 16:30:13 CDT CPT-35817 Venipuncture Draw Fee 16:29:43 CDT CPT-J1070 Depo Testosterone 100 mg 14:45:38 CDT 01/11
--- OUTSIDE RECORDS SUMMARY | 2019-10-27 12:44 | XMS REPORT | Clinical Summary ---
Author Author Abhishek, Elba Lance 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 Benign neoplasm of colon PERIPHERAL NEUROPATHY [...] Test twice a day GLUCO SE BLOOD 49812706961 No Longer Active Baltazar Childers MD Active TRUEPLUS LANCETS 33G MISC Test twice a day LANCET S 48607406499 Active Baltazar Childers MD Active TRUEDRAW LANCING DEVICE MISC Test twice a day L ANCET DEVICES 12899759461 Active Baltazar Childers MD Active TRUETRACK TEST STRP Test twice a day GLUCOSE BLOO D 64058189833 Active Baltazar Childers MD Active TRUETRACK BLOOD GLUCOSE W/DEVICE KIT Test twice a day BLOOD GLUCOSE MONITORING SUPPL 33292112201 Active Baltazar Childers MD Activ e HYDROCODONE-ACETAMINOPHEN 7.5-325 MG TABS Take 1 tab every 6-8 hour s PRN HYDROCODONE-ACETAMINOPHEN 38579976566 Active Gato Rae MD Active NORTRIPTYLINE HCL 50 MG CAPS 1 every night for neuropathy 4 NORTRIPTYLINE HCL 79463817284 Active Baltazar Childers MD Acti ve GABAPENTIN 300 MG CAPS 1 three times a day GABAPE NTIN 57376963053 Active Kelly Iraheta LPN Active GABAPENTIN 300 MG CAPS 1 po qd x 2 days, then 1 po BID x 2 d ays, then 1 po TID GABAPENTIN 84864254330 No Longer Active Baltazar silverman MD Active TRAMADOL HCL 50 MG TABS 1 twice a day as needed for pain TRAMADOL HCL 53480362194 Active Baltazar Childers MD Active NAPROXEN 500 MG TABS 1 tablet by mouth twice daily NAPROXEN 36851309932 No Longer Active Baltazar Childers MD Active PROAIR HFA 108 (90 BASE) MCG/ACT AERS 2 puffs four times a d ay as needed ALBUTEROL SULFATE 30594915577 Active Baltazar Childers MD Active DEPO-TESTOSTERONE 200 MG/ML OIL as directed RUFINO TOSTERONE CYPIONATE 85392433784 No Longer Active Baltazar Childers MD Active LIPITOR 20 MG TABS Take one by mouth daily in evening ATORVASTATIN CALCIUM 12044513120 No Longer Active Baltazar Childers MD Activ e CRESTOR 10 MG TABS 1 by mouth every day R OSUVASTATIN CALCIUM 43491900628 No Longer Active Baltazar Childers MD Activ e PHENTERMINE HCL 37.5 MG TABS Take one by mouth daily 2 PHENTERMINE HCL 04226650248 No Longer Active Baltazar Childers MD Activ e ROBAXIN-750 750 MG TABS Take one by mouth daily ME THOCARBAMOL 14392532043 Active Baltazar Childers MD Active TIZANIDINE HCL 4 MG TABS 1 daily as needed for muscle spasm 2011 TIZANIDINE HCL 03931554973 No Longer Active Dawna Salazar RN Active [id number] 50-325-40 MG TABS 1 four time s a day as needed for heacache [id number] 40693454380 Active Baltazar Childers MD Active SUMATRIPTAN SUCCINATE 100 MG TABS 1 tablet by mouth at onset of migraine as needed SUMATRIPTAN SUCCINATE 38929253153 Active Baltazar bynum MD Active LORATADINE 10 MG TABS Take one by mouth daily LORATADINE 47400570972 Active Baltazar Childers MD Active FUROSEMIDE 40 MG TABS Take one by mouth daily FUROSEMIDE 07343446956 Active Baltazar Childers MD Active LISINOPRIL 20 MG TABS Take one by mouth daily at bedtime LISINOPRIL 81531146131 Active Baltazar Childers MD Active OMEPRAZOLE 20 MG CPDR Take one by mouth daily OMEPRAZOLE 14617835903 Active Baltazar Childers MD Active HYDROXYZINE HCL 25 MG TABS Take one by mouth daily HYDROXYZINE HCL 01281611188 Active Dawna Lew Active GLIPIZIDE 10 MG TABS 1 tablet by mouth twice daily GLIPIZIDE 93485657725 Active Baltazar Childers MD Active ALPRAZOLAM 1 MG TABS 1 tablet by mouth daily at bedtime for restles s leg ALPRAZOLAM 50221222867 Active Baltazar Childers MD Active METFORMIN HCL 1000 MG TABS Take one by mouth twice daily METFORMIN HCL 79580493246 Active Baltazar Childers MD Active TIZANIDINE HCL 4 MG TABS 1 daily as needed for muscle spasm 2011 TIZANIDINE HCL 4 MG TABS 654774 TIZANIDINE HCL Inactiv e PHENTERMINE HCL 37.5 MG TABS Take one by mouth daily 2 PHENTERMINE HCL 37.5 MG TABS 205224 PHENTERMINE HCL Inactive CRESTOR 10 MG TABS 1 by mouth every day C RESTOR 10 MG TABS ROSUVASTATIN CALCIUM Inactive LIPITOR 20 MG TABS Take one by mouth daily in evening LIPITOR 20 MG TABS 604895 ATORVASTATIN CALCIUM Inactive DEPO-TESTOSTERONE 200 MG/ML OIL as directed 8 DEPO-TESTOSTERONE 200 MG/ML OIL 648994 TESTOSTERONE CYPIONATE Inactive NAPROXEN 500 MG TABS 1 tablet by mouth twice daily 201 07/27/22 NAPROXEN 500 MG TABS 039381 NAPROXEN Inactive GABAPENTIN 300 MG CAPS 1 po qd x 2 days, then 1 po BID x 2 d ays, then 1 po TID GABAPENTIN 300 MG CAPS 749033 GABAPENTIN Inact amie ONETOUCH ULTRA BLUE STRP Test twice a day ONETOUCH ULTRA BLUE STRP GLUCOSE BLOOD Inactive Immunizations Vaccine Administration Date Value Standard Floyd cription pneumococcal immunization administered Pneumovax 23 [CVX33] pneumococcal polysaccharide vaccine, 23 valent Seasonal influenza vaccine, injectable, containing preservative, for > 3 years old (Afluria, FluLaval, Fluzone, Fluvirin, Fluarix, Agriflu(>= 18 yo)) Fluzone (>3 yrs.) [TQN677] Influenza, seasonal, inject able Seasonal influenza vaccine, injectable, containing preservative, for > 3 years old (Afluria, FluLaval, Fluzone, Fluvirin, Fluarix, Agriflu(>= 18 yo)) Fluzone (>3 yrs.) [BPP420] Influenza, seasonal, inject able Vital Signs Date [...] - Chem istry sodium, serum 140 mmol/L 704-902 8308/05/05 potassium, serum 4.9 mmol/L 3.5-5.2 chloride, serum [...] Panel - Chemistry sodium, serum 139 mmol/L 666-817 0464/01/20 potassium, serum 5.3 mmol/L 3.5-5.2 chloride, serum [...] mg/g mg/g{creat} 0-29 cholesterol, serum 319 mg/dL 911-917 8923/08/21 triglyceride, serum, fasting 546 mg/dL 30-200 HDL cholesterol, serum 39 mg/dL 32-96 LDL cholesterol, serum 167.00 mg/dL 5.00-130.00 hemoglobin A1C, blood, as % of total hemoglobin 7.7 % 4.3-6.0 sodium, serum 138 mmol/L 744-232 3661/08/21 potassium, serum 4.3 mmol/L 3.5-5.2 chloride, serum [...] 0-19 Encounters Code Encounter Date Provider Facility CPT-76629 Level 4 Est. Patient 11:29:55 CDT Baltazar Childers MD [facility] CPT-62738 Level 4 Est. Patient 14:15:19 CDT Baltazar Childers MD [facility] CPT-92607 Level 4 Est. Patient 12:20:13 CDT Baltazar Childers MD [facility] CPT-30186 Level 4 Est. 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 CPT-87239 Level 4 Est. Patient 14:18:34 PATIENT FINANCIAL SPECIALIST Baltazar Childers MD [facility] CPT-80615 Level 4 Est. Patient 15:18:29 CDT Baltazar Childers MD [facility] CPT-35747 Level 3 Est. Patient 12:45:34 CDT Baltazar Childers MD [facility] CPT-35960 Level 3 Est. Patient 10:10:11 CDT Baltazar Childers MD [facility] CPT-61419 Level 3 Est. Patient 14:07:50 CDT Baltazar Childers MD [facility] CPT-87780 Level 4 Est. Patient 12:26:10 PATIENT FINANCIAL SPECIALIST Baltazar Childers MD [facility] CPT-38439 Level 4 Est. Patient 14:45:38 CDT Baltazar Childers MD [facility] CPT-31300 Level 4 New Patient 12:30:48 CDT Baltazar hinton MD [facility] Procedures Code Procedure Name Date Entry Date Standard Desc ription CPT-48877 Venipuncture Draw Fee 12:10:27 PATIENT FINANCIAL SPECIALIST CPT-02644 Fluzone Quadrivalent Intramuscular Suspe nsion 0.5 ML 10:49:13 CDT CPT-30604 First Vx Component - Ix admi n via ID IM or jet inj without physician counseling 15:17:19 PATIENT FINANCIAL SPECIALIST CPT-02698 Pneumovax 23 15:17:19 PATIENT FINANCIAL SPECIALIST CPT-96313 Pneumovax 14:52:45 PATIENT FINANCIAL SPECIALIST CPT-01689 Venipuncture Draw Fee 14:06:30 PATIENT FINANCIAL SPECIALIST CPT-000 Give Appropriate Flu Vaccine 14:18:34 PATIENT FINANCIAL SPECIALIST 2 CPT-26252 Administration single or combination vac cine inc oral 14:46:00 PATIENT FINANCIAL SPECIALIST CPT-85767 Influenza split virus > age 3 14:46:00 PATIENT FINANCIAL SPECIALIST CPT-OV Office Visit 19:13:16 CDT CPT-49288 Zostavax 18:41:56 CDT CPT-27990 Administration single or combination vac cine inc oral 12:56:39 CDT CPT-05877 Zoster Vaccine (Zostavax) 12:56:39 CDT 2012 CPT-24989 Venipuncture Draw Fee 10:58:57 CDT CPT-19708 Sono pelvis non OB uterus ovaries cervix 17:45:04 CDT CPT-73738 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
--- OUTSIDE RECORDS SUMMARY | 2019-10-27 12:45 | XMS REPORT | Clinical Summary ---
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 Benign neoplasm of colon PERIPHERAL NEUROPATHY [...] ronary atherosclerosis of unspecified type of vessel, tangirnaq or graft OTH NONSPC ABN FINDNG RAD&OTH [...] three times a day 201 12/03/26 GABAPENTIN 24270142791 No Longer Active Baltazar Childers MD Activ e LISINOPRIL 20 MG ORAL TABLET 1 tablet by mouth daily at night 2016 LISINOPRIL 78068698085 Active Baltazar Childers MD Active ZITHROMAX Z-ISAIAS 250 MG ORAL TABLET Take two tablets to day and then 1 tablet daily for 4 days AZITHROMYCIN 38068441190 No Longer A ctive Baltazar Childers MD Active LANTUS SOLOSTAR 100 UNIT/ML SUBCUTANEOUS SOLUTION PEN- INJECTOR 30 units SC daily INSULIN GLARGINE 56580124754 Active Baltazar Childers MD Active AMLODIPINE BESYLATE 5 MG ORAL TABLET 1 tab daily for HTN AMLODIPINE BESYLATE 72092486650 Active KENDALL Juarez Active SYNTHROID 100 MCG ORAL TABLET 1 tablet by mouth daily LEVOTHYROXINE SODIUM 91684311318 Active Baltazar Childers MD Active GLIPIZIDE 10 MG ORAL TABLET take 2 tablets twice daily GLIPIZIDE 40247032453 Active Baltazar Childers MD Active SUCRALFATE 1 GM ORAL TABLET 1 four times a day to coat the stoma ch SUCRALFATE 82368211333 No Longer Active Baltazar Childers MD Active PEN NEEDLES 31G X 6 MM use 1 daily INSULIN PEN NE EDLE 52262239566 Active KENDALL Juarez Active TOUJEO SOLOSTAR 300 UNIT/ML SUBCUTANEOUS SOLUTION PEN- INJECTOR 10 units SC daily INSULIN GLARGINE 12313988817 No Longer Active Rola ARGUETA Active NAPROXEN SODIUM 220 MG ORAL TABLET 1 three times a day as needed NAPROXEN SODIUM 83354714931 No Longer Active Baltazar Childers MD Active ATORVASTATIN CALCIUM 20 MG ORAL TABLET Take 1 tab daily ATORVASTATIN CALCIUM 79603073957 Active Baltazar Childesr MD A ctive FUROSEMIDE 40 MG ORAL TABLET Take one by mouth daily FUROSEMIDE 54256477894 Active Baltazar Childers MD Active LISINOPRIL 20 MG ORAL TABLET Take one by mouth daily at bedtime LISINOPRIL 26023252198 No Longer Active Baltazar Childers MD Active ONETOUCH ULTRA BLUE IN VITRO STRIP Test twice a day 07/11/11 GLUCOSE BLOOD 24567531882 No Longer Active Baltazar Childers MD Acti ve TRUEPLUS LANCETS 33G Test twice a day LANCETS 2061276 5964 Active KENDALL Juarez Active TRUEDRAW LANCING DEVICE Test twice a day LANCET DEVICES 05856843679 Active Baltazar Childers MD Active TRUETRACK TEST IN VITRO STRIP Test twice a day GLUCOSE BLOOD 34671072504 Active KENDALL Juarez Active TRUETRACK BLOOD GLUCOSE w/Device KIT Test twice a day BLOOD GLUCOSE MONITORING SUPPL 94466071559 Active Baltazar Childers MD Activ e HYDROCODONE-ACETAMINOPHEN 7.5-325 MG ORAL TABLET Take 1 tab every 6-8 hours PRN HYDROCODONE-ACETAMINOPHEN 13955519258 Active Baltazar Nickerson MD Active NORTRIPTYLINE HCL 50 MG ORAL CAPSULE 1 every night for neuropathy 2 NORTRIPTYLINE HCL 98965378504 Active Baltazar Childers MD Acti ve GABAPENTIN 300 MG ORAL CAPSULE 1 po qd x 2 days, then 1 po BID x 2 days, then 1 po TID GABAPENTIN 86745610524 No Longer Active Baltazar Childers MD Active TRAMADOL HCL 50 MG ORAL TABLET 1 twice a day as needed for pain 201 07/27/28 TRAMADOL HCL 12070954877 Active Baltazar Childers MD Active NAPROXEN 500 MG ORAL TABLET 1 tablet by mouth twice daily NAPROXEN 82288955520 No Longer Active Baltazar Childers MD Active PROAIR HFA 108 (90 Base) MCG/ACT INHALATION AEROSOL SO LUTION 2 puffs four times a day as needed ALBUTEROL SULFATE 65030488531 Active KENDALL Bowie Active DEPO-TESTOSTERONE 200 MG/ML INTRAMUSCULAR SOLUTION as directed TESTOSTERONE CYPIONATE 80945067050 No Longer Active Baltazar Childers MD Active LIPITOR 20 MG ORAL TABLET Take one by mouth daily in evening ATORVASTATIN CALCIUM 69974299171 No Longer Active Baltazar Childers MD Active CRESTOR 10 MG ORAL TABLET 1 by mouth every day ROSUVASTATIN CALCIUM 29562440687 No Longer Active Baltazar Childers MD Active PHENTERMINE HCL 37.5 MG ORAL TABLET Take one by mouth daily PHENTERMINE HCL 76010243317 No Longer Active Baltazar Childers MD Ac tive ROBAXIN-750 750 MG ORAL TABLET Take one by mouth daily METHOCARBAMOL 91177157019 Active KENDALL Juarez Active TIZANIDINE HCL 4 MG ORAL TABLET 1 daily as needed for muscle spa sm TIZANIDINE HCL 40073416898 No Longer Active Dawna Salazar RN Active [id number]-[id number] 50-325-40 MG ORAL TABLET 1 fo ur times a day as needed for heacache FJQMORPJHA-[id number] 41371881145 Active Baltazar Childers MD Active SUMATRIPTAN SUCCINATE 100 MG ORAL TABLET 1 tablet by m outh at onset of migraine as needed SUMATRIPTAN SUCCINATE 67190840263 Active KENDALL Restrepo Active LORATADINE 10 MG ORAL TABLET Take one by mouth daily LORATADINE 12813261415 Active KENDALL Juarez Active OMEPRAZOLE 20 MG ORAL CAPSULE DELAYED RELEASE Take one by mouth jostin ly OMEPRAZOLE 57281942343 Active Baltazar Childers MD Active HYDROXYZINE HCL 25 MG ORAL TABLET Take one by mouth daily HYDROXYZINE HCL 39722584745 Active Baltazar Childers MD Active ALPRAZOLAM 1 MG ORAL TABLET 1 tablet by mouth [facility] ALPRAZOLAM 07397446139 Active Baltazar Childers MD Active METFORMIN HCL 1000 MG ORAL TABLET Take one by mouth twice daily METFORMIN HCL 79913869139 Active Baltazar Childers MD Active TIZANIDINE HCL 4 MG ORAL TABLET 1 daily as needed for muscle spa sm TIZANIDINE HCL 4 MG ORAL TABLET 983833 TIZANIDINE HCL Inactive PHENTERMINE HCL 37.5 MG ORAL TABLET Take one by mouth daily PHENTERMINE HCL 37.5 MG ORAL TABLET 353408 PHENTERMINE HCL Inac tive CRESTOR 10 MG ORAL TABLET 1 by mouth every day CRESTOR 10 MG ORAL TABLET 998865 ROSUVASTATIN CALCIUM Inactive LIPITOR 20 MG ORAL TABLET Take one by mouth daily in evening LIPITOR 20 MG ORAL TABLET 154262 ATORVASTATIN CALCIUM Inactive DEPO-TESTOSTERONE 200 MG/ML INTRAMUSCULAR SOLUTION as directed DEPO-TESTOSTERONE 200 MG/ML INTRAMUSCULAR SOLUTION 692575 RUFINO TOSTERONE CYPIONATE Inactive NAPROXEN 500 MG ORAL TABLET 1 tablet by mouth twice daily NAPROXEN 500 MG ORAL TABLET 151896 NAPROXEN Inactive GABAPENTIN 300 MG ORAL CAPSULE 1 po qd x 2 days, then 1 po BID x 2 days, then 1 po TID GABAPENTIN 300 MG ORAL CAPSULE 720182 GABAP ENTIN Inactive ONETOUCH ULTRA BLUE IN VITRO STRIP Test twice a day 07/11/11 ONETOUCH ULTRA BLUE IN VITRO STRIP GLUCOSE BLOOD Inact amie NAPROXEN SODIUM 220 MG ORAL TABLET 1 three times a day as needed NAPROXEN SODIUM 220 MG ORAL TABLET 534934 NAPROXEN SODI UM Inactive TOUJEO SOLOSTAR 300 UNIT/ML SUBCUTANEOUS SOLUTION PEN- INJECTOR 10 units SC daily TOUJEO SOLOSTAR 300 UNIT/ML SUBCUTANEOUS SOLUTION PEN-INJECTOR INSULIN GLARGINE Inactive SUCRALFATE 1 GM ORAL TABLET 1 four times a day to coat the stoma ch SUCRALFATE 1 GM ORAL TABLET 446282 SUCRALFATE Inac tive GABAPENTIN 300 MG ORAL CAPSULE 1 three times a day 201 12/03/26 GABAPENTIN 300 MG ORAL CAPSULE 273742 GABAPENTIN Inactive ZITHROMAX Z-ISAIAS 250 MG ORAL TABLET Take two tablets to day and then 1 tablet daily for 4 days ZITHROMAX Z-ISAIAS 250 MG ORAL TAB LET 327145 AZITHROMYCIN Inactive Immunizations Vaccine Administration Date Value Standard Floyd cription pneumococcal immunization administered Pneumovax 23 [CVX33] pneumococcal polysaccharide vaccine, 23 valent Seasonal influenza vaccine, injectable, containing preservative, for > 3 years old (Afluria, FluLaval, Fluzone, Fluvirin, Fluarix, Agriflu(>= 18 yo)) Fluzone (>3 yrs.) [HIR299] Influenza, seasonal, inject able Seasonal influenza vaccine, injectable, containing preservative, for > 3 years old (Afluria, FluLaval, Fluzone, Fluvirin, Fluarix, Agriflu(>= 18 yo)) Fluzone (>3 yrs.) [MUS243] Influenza, seasonal, inject able Vital Signs Date [...] - Chem istry sodium, serum 139 mmol/L 420-545 4341/10/03 potassium, serum 4.7 mmol/L 3.5-5.2 chloride, serum 98 mmol/L 98-107 carbon dioxide, venous blood 28.7 mmol/L 21.0-32 .0 blood glucose 218 mg/dL 65-110 calcium, serum 9.8 mg/dL 8.5-10.1 urea nitrogen, blood 19 mg/dL 7-18 creatinine, serum 1.68 mg/dL 0.60-1.30 Lab Report: CBC, Renal Panel - Chemistry sodium, serum 142 mmol/L 136-806 5614/08/11 potassium, serum 4.8 mmol/L 3.5-5.2 chloride, serum [...] (L) - Chemistry cholesterol, serum 209 mg/dL 097-021 3082/12/27 triglyceride, serum, fasting 329 mg/dL 30-200 HDL cholesterol, serum 56 mg/dL 32-60 LDL cholesterol, serum 87 mg/dL 0-130 TSH 3.60 m[iU]/mL 0.36-3.74 Encounters Code Encounter Date Provider Facility CPT-40685 Level 4 Est. Patient 17:05:37 CDT Baltazar Childers MD [facility] CPT-31278 Level 4 Est. Patient 16:21:19 CAST SHELL GRINDER Baltazar Childers MD [facility] CPT-65132 Level 4 Est. Patient 12:25:11 CDT Baltazar Childers MD [facility] CPT-29037 Level 4 Est. Patient 14:22:31 CDT Baltazar Childers MD [facility] CPT-35882 Level 4 Est. Patient 15:44:38 CDT [facility]onna [facility] CPT-96779 Level 4 Est. Patient 11:34:17 CDT Baltazar Childers MD [facility] CPT-23717 Level 3 Est. Patient 16:40:40 CDT Baltazar Childers MD [facility] CPT-43209 Level 4 Est. Patient 10:41:24 CDT Baltazar Childers MD [facility] CPT-25175 Level 4 Est. Patient 16:01:48 CDT Baltazar Childers MD [facility] CPT-09578 Level 4 Est. Patient 16:54:07 CAST SHELL GRINDER Baltazar Childers MD [facility] CPT-48392 Level 4 Est. Patient 15:42:12 CDT Baltazar Childers MD [facility] CPT-23360 Level 4 Est. Patient 11:29:55 CDT Baltazar Childers MD [facility] CPT-77838 Level 4 Est. Patient 14:15:19 CDT Baltazar Childers MD [facility] CPT-62478 Level 4 Est. Patient 12:20:13 CDT Baltazar Childers MD [facility] CPT-15554 Level 4 Est. Patient 14:52:45 CAST SHELL GRINDER Baltazar Childers MD [facility] CPT-58450 Level 4 Est. Patient 14:18:34 CAST SHELL GRINDER Baltazar Childers MD [facility] CPT-07974 Level 4 Est. Patient 15:18:29 CDT Baltazar Childers MD [facility] CPT-58318 Level 3 Est. Patient 12:45:34 CDT Baltazar Childers MD [facility] CPT-51140 Level 3 Est. Patient 10:10:11 CDT Baltazar Childers MD [facility] CPT-02504 Level 3 Est. Patient 14:07:50 CDT Baltazar Childers MD [facility] CPT-12078 Level 4 Est. Patient 12:26:10 CAST SHELL GRINDER Baltazar Childers MD [facility] CPT-95702 Level 4 Est. Patient 14:45:38 CDT Baltazar Childers MD [facility] CPT-51241 Level 4 New Patient 12:30:48 CDT Baltazar hinton MD [facility] Procedures Code Procedure Name Date Entry Date Standard Desc ription CPT-000 Give Appropriate Flu Vaccine 12:25:14 CDT 2 CPT-32265 First Vx - Ix admin via ID I M or jet injects without counseling by physician 13:08:59 CDT CPT-07599 Fluzone Quadrivalent Intramuscular Suspe nsion 0.5 ML 13:08:59 CDT CPT-26973 Venipuncture Draw Fee 12:04:12 CDT CPT-60173 Lipid - LAB USE ONLY 17:39:15 CAST SHELL GRINDER 9 CPT-79656 HGBA1C - LAB USE ONLY 17:39:15 CAST SHELL GRINDER CPT-13561 CMP - LAB USE ONLY 17:39:14 CAST SHELL GRINDER CPT-86757 Venipuncture Draw Fee 17:39:14 CAST SHELL GRINDER CPT-66221 First Vx - Ix admin via ID I M or jet injects without counseling by physician 16:55:17 CAST SHELL GRINDER CPT-59529 Fluzone Quadrivalent Intramuscular Suspe nsion 0.5 ML 16:55:17 CAST SHELL GRINDER CPT-01211 Renal Panel - LAB USE ONLY 17:39:20 CDT 201 10/31/07 CPT-08278 CBC - LAB USE ONLY 17:39:20 CDT CPT-69902 Venipuncture Draw Fee 17:39:20 CDT CPT-97898 Venipuncture Draw Fee 14:33:30 CDT CPT-50660 Renal Panel - LAB USE ONLY 14:33:30 CDT 201 10/31/07 CPT-38789 CBC - LAB USE ONLY 14:33:29 CDT CPT-48534 Venipuncture Draw Fee 14:50:21 CAST SHELL GRINDER CPT-78732 Immunization Single Admin 17:35:35 CDT 2014 CPT-86003 Fluzone Quadrivalent preservative free ( >=3yrs.) 17:35:35 CDT CPT-15824 Venipuncture Draw Fee 12:10:27 CAST SHELL GRINDER CPT-07839 Fluzone Quadrivalent Intramuscular Suspe nsion 0.5 ML 10:49:13 CDT CPT-87947 First Vx Component - Ix admi n via ID IM or jet inj without physician counseling 15:17:19 CAST SHELL GRINDER CPT-50219 Pneumovax 23 15:17:19 CAST SHELL GRINDER CPT-44373 Pneumovax 14:52:45 CAST SHELL GRINDER CPT-54145 Venipuncture Draw Fee 14:06:30 CAST SHELL GRINDER CPT-000 Give Appropriate Flu Vaccine 14:18:34 CAST SHELL GRINDER 2 CPT-10065 Administration single or combination vac cine inc oral 14:46:00 CAST SHELL GRINDER CPT-54088 Influenza split virus > age 3 14:46:00 CAST SHELL GRINDER CPT-OV Office Visit 19:13:16 CDT CPT-40450 Zostavax 18:41:56 CDT CPT-23891 Administration single or combination vac cine inc oral 12:56:39 CDT CPT-59926 Zoster Vaccine (Zostavax) 12:56:39 CDT 2012 CPT-08794 Venipuncture Draw Fee 10:58:57 CDT CPT-58135 Sono pelvis non OB uterus ovaries cervix 17:45:04 CDT CPT-77647 Sono retroperitoneal complete kidneys an d bladder 17:14:36 CDT CPT-OV Office Visit 14:59:38 CAST SHELL GRINDER CPT-J1070 Depo Testosterone 100 mg 14:50:13 CDT 03/05 CPT-11740 Abx/Therapy Injection 14:50:13 CDT CPT-23655 Administration single or combination vac cine inc oral 14:34:43 CDT CPT-67580 Influenza split virus > age 3 14:34:43 CDT CPT-J1070 Depo Testosterone 100 mg 17:37:13 CDT 01/11 CPT-04067 Abx/Therapy Injection 17:37:13 CDT CPT-23755 Venipuncture Draw Fee 16:30:13 CDT CPT-88768 Venipuncture Draw Fee 16:29:43 CDT CPT-J1070 Depo Testosterone 100 mg 14:45:38 CDT 01/11
--- OUTSIDE RECORDS SUMMARY | 2019-10-27 12:45 | XMS REPORT | Clinical Summary ---
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 POLICEMAN Benign neoplasm of colon PERIPHERAL NEUROPATHY 356.9 [...] ronary atherosclerosis of unspecified type of vessel, kletsel dehe wintun or graft OTH NONSPC ABN FINDNG RAD&OTH [...] a day to coat the stomach SUCRALFATE 24126560574 Active Baltazar Childers MD Active PEN NEEDLES 31G X 6 MM MISC use 1 daily INSULIN PEN NEEDLE 10518431109 Active Martita Herbert RMA Active TOUJEO SOLOSTAR 300 UNIT/ML SC SOPN 10 units SC daily INSULIN GLARGINE 12504778561 No Longer Active Martita Herbert RMA Active LANTUS SOLOSTAR 100 UNIT/ML SC SOPN 10 units SC daily INSULIN GLARGINE 55592243344 Active KENDALL Juarez Active NAPROXEN SODIUM 220 MG ORAL TABS 1 three times a day as needed 2 NAPROXEN SODIUM 26215755408 No Longer Active Baltazar Childers MD Active ATORVASTATIN CALCIUM 20 MG ORAL TABS Take 1 tab daily ATORVASTATIN CALCIUM 00020533735 Active Baltazar Childers MD Active FUROSEMIDE 40 MG TABS Take one by mouth daily FUROSEMIDE 49115148345 Active Baltazar Childers MD Active LISINOPRIL 20 MG TABS Take one by mouth daily at bedtime LISINOPRIL 34731733890 Active Baltazar Childers MD Active ONETOUCH ULTRA BLUE STRP Test twice a day GLUCO SE BLOOD 83579734101 No Longer Active Baltazar Childers MD Active TRUEPLUS LANCETS 33G MISC Test twice a day LANCET S 81622955689 Active KENDALL Juarez Active TRUEDRAW LANCING DEVICE MISC Test twice a day L ANCET DEVICES 54994172361 Active Baltazar Childers MD Active TRUETRACK TEST STRP Test twice a day GLUCOSE BLOO D 62699478982 Active KENDALL Juarez Active TRUETRACK BLOOD GLUCOSE W/DEVICE KIT Test twice a day BLOOD GLUCOSE MONITORING SUPPL 54194719854 Active Baltazar Childers MD Activ e HYDROCODONE-ACETAMINOPHEN 7.5-325 MG TABS Take 1 tab every 6-8 hour s PRN HYDROCODONE-ACETAMINOPHEN 87936249141 Active Baltazar Childers MD Active NORTRIPTYLINE HCL 50 MG CAPS 1 every night for neuropathy 4 NORTRIPTYLINE HCL 72492916809 Active KENDALL Juarez Acti ve GABAPENTIN 300 MG CAPS 1 three times a day GABAPE NTIN 04862860742 Active Baltazar Childers MD Active GABAPENTIN 300 MG CAPS 1 po qd x 2 days, then 1 po BID x 2 d ays, then 1 po TID GABAPENTIN 63040684488 No Longer Active Baltazar silverman MD Active TRAMADOL HCL 50 MG TABS 1 twice a day as needed for pain TRAMADOL HCL 48893959242 Active Baltazar Childers MD Active NAPROXEN 500 MG TABS 1 tablet by mouth twice daily NAPROXEN 98358367398 No Longer Active Baltazar Childers MD Active PROAIR HFA 108 (90 BASE) MCG/ACT AERS 2 puffs four times a d ay as needed ALBUTEROL SULFATE 89398911200 Active Baltazar Childers MD Active DEPO-TESTOSTERONE 200 MG/ML OIL as directed RUFINO TOSTERONE CYPIONATE 97000129082 No Longer Active Baltazar Childers MD Active LIPITOR 20 MG TABS Take one by mouth daily in evening ATORVASTATIN CALCIUM 39500705050 No Longer Active Baltazar Childers MD Activ e CRESTOR 10 MG TABS 1 by mouth every day R OSUVASTATIN CALCIUM 38624086810 No Longer Active Baltazar Childers MD Activ e PHENTERMINE HCL 37.5 MG TABS Take one by mouth daily 2 PHENTERMINE HCL 77804584348 No Longer Active Baltazar Childers MD Activ e ROBAXIN-750 750 MG TABS Take one by mouth daily ME THOCARBAMOL 00040102370 Active Baltazar Childers MD Active TIZANIDINE HCL 4 MG TABS 1 daily as needed for muscle spasm 2011 TIZANIDINE HCL 45318376824 No Longer Active Dawna Salazar RN Active [id number] 50-325-40 MG TABS 1 four time s a day as needed for heacache [id number] 23910419817 Active Baltazar Childers MD Active SUMATRIPTAN SUCCINATE 100 MG TABS 1 tablet by mouth at onset of migraine as needed SUMATRIPTAN SUCCINATE 54721821967 Active Bella STEPHEN RN Active LORATADINE 10 MG TABS Take one by mouth daily LORATADINE 58956508987 Active Baltazar Childers MD Active OMEPRAZOLE 20 MG CPDR Take one by mouth daily OMEPRAZOLE 40078496917 Active Crystal Lyons Active HYDROXYZINE HCL 25 MG TABS Take one by mouth daily HYDROXYZINE HCL 40026990647 Active Baltazar Childers MD Active GLIPIZIDE 10 MG TABS 1 tablet by mouth twice daily GLIPIZIDE 09886586593 Active Baltazar Childers MD Active ALPRAZOLAM 1 MG TABS 1 tablet by mouth daily at bedtime for restles s leg ALPRAZOLAM 84117082321 Active Baltazar Childers MD Active METFORMIN HCL 1000 MG TABS Take one by mouth twice daily METFORMIN HCL 55670161937 Active Baltazar Childers MD Active TIZANIDINE HCL 4 MG TABS 1 daily as needed for muscle spasm 2011 TIZANIDINE HCL 4 MG TABS 661689 TIZANIDINE HCL Inactiv e PHENTERMINE HCL 37.5 MG TABS Take one by mouth daily 2 PHENTERMINE HCL 37.5 MG TABS 352203 PHENTERMINE HCL Inactive CRESTOR 10 MG TABS 1 by mouth every day C RESTOR 10 MG TABS 818697 ROSUVASTATIN CALCIUM Inactive LIPITOR 20 MG TABS Take one by mouth daily in evening LIPITOR 20 MG TABS 266483 ATORVASTATIN CALCIUM Inactive DEPO-TESTOSTERONE 200 MG/ML OIL as directed 8 DEPO-TESTOSTERONE 200 MG/ML OIL 361113 TESTOSTERONE CYPIONATE Inactive NAPROXEN 500 MG TABS 1 tablet by mouth twice daily 201 07/27/22 NAPROXEN 500 MG TABS 197184 NAPROXEN Inactive GABAPENTIN 300 MG CAPS 1 po qd x 2 days, then 1 po BID x 2 d ays, then 1 po TID GABAPENTIN 300 MG CAPS 244107 GABAPENTIN Inact amie ONETOUCH ULTRA BLUE STRP Test twice a day ONETOUCH ULTRA BLUE STRP GLUCOSE BLOOD Inactive NAPROXEN SODIUM 220 MG ORAL TABS 1 three times a day as needed 2 NAPROXEN SODIUM 220 MG ORAL TABS 731931 NAPROXEN SODIUM Inactive TOUJEO SOLOSTAR 300 UNIT/ML [...] Fluarix, Agriflu(>= 18 yo)) Fluzone (>3 yrs.) [[id number]] Influenza, seasonal, inject able Seasonal influenza vaccine, injectable, containing preservative, for > 3 years old (Afluria, FluLaval, Fluzone, Fluvirin, Fluarix, Agriflu(>= 18 yo)) Fluzone (>3 yrs.) [[id number]] Influenza, seasonal, inject able Vital Signs Date [...] C - Chemistry sodium, serum 139 mmol/L 139-106 2082/07/07 potassium, serum 4.5 mmol/L 3.5-5.2 chloride, serum [...] 7.9 % 4.3-6.0 sodium, serum 139 mmol/L 103-773 7496/02/04 potassium, serum 5.4 mmol/L 3.5-5.2 chloride, serum 99 mmol/L 98-107 carbon dioxide, venous blood 36.7 mmol/L 21.0-32 .0 creatinine, serum 2.02 mg/dL 0.55-1.30 blood glucose 181 mg/dL 65-110 urea nitrogen, blood 24 mg/dL 7-18 calcium, serum 9.4 mg/dL 8.5-10.1 Lab Report: CBC, HGBA1C, Renal Panel - H ematology hemoglobin, blood 11.7 g/dL 12.0-16.0 hematocrit, blood 35.6 % 36.0-46.0 mean corpuscular volume, RBC 97 fL 80-97 mean corpuscular hemoglobin, RBC 31.9 pg 27. 0-31.2 mean corpuscular hemoglobin concentration, RBC 32.9 G/DL % 31.8-35.4 red blood cell distribution width 15.2 % 11 .6-14.8 platelet count 308 10^3/MM^3 10*3/mm3 292-154 4633/02/04 erythrocyte (RBC) count 3.66 10^6/MM^3 10*6/mm3 4.04-5.4 8 leukocyte count, blood 8.0 10^3/MM^3 10*3/mm3 4.6-10.2 Lab Report: Comp. Metabolic Panel, Lipid Panel - Chemistry sodium, serum 138 mmol/L 250-507 4428/11/23 carbon dioxide, venous blood 32.4 mmol/L 21.0-32 .0 potassium, serum 5.7 mmol/L 3.5-5.2 chloride, serum 98 mmol/L 98-107 blood glucose 136 mg/dL 65-110 urea nitrogen, blood 18 mg/dL 7-18 creatinine, serum 1.71 mg/dL 0.55-1.30 alanine aminotransferase (SGPT), serum 71 U/L 12-78 aspartate aminotransferase (SGOT), serum 34 U/L 15-37 calcium, serum 9.4 mg/dL 8.5-10.1 bilirubin, serum, total 0.40 mg/dL 0.00-1.00 cholesterol, serum 405 mg/dL 526-914 9917/11/23 triglyceride, serum, fasting 709 mg/dL 30-200 HDL [...] Panel - Chemistry sodium, serum 141 mmol/L 433-287 5398/08/08 potassium, serum 4.9 mmol/L 3.5-5.2 chloride, serum [...] mg/dL Encounters Code Encounter Date Provider Facility CPT-64699 Level 4 Est. Patient 11:34:17 CDT Baltazar Childers MD [facility] CPT-34795 Level 3 Est. Patient 16:40:40 CDT Baltazar Childers MD [facility] CPT-49635 Level 4 Est. Patient 10:41:24 CDT Baltazar Childers MD [facility] CPT-76646 Level 4 Est. Patient 16:01:48 CDT Baltazar Childers MD [facility] CPT-48785 Level 4 Est. Patient 16:54:07 [employer] Baltazar Childers MD [facility] CPT-76654 Level 4 Est. Patient 15:42:12 CDT Baltazar Childers MD [facility] CPT-86071 Level 4 Est. Patient 11:29:55 CDT Baltazar Childers MD [facility] CPT-00889 Level 4 Est. Patient 14:15:19 CDT Baltazar Childers MD [facility] CPT-15289 Level 4 Est. Patient 12:20:13 CDT Baltazar Childers MD [facility] CPT-07360 Level 4 Est. Patient 14:52:45 [employer] Baltazar Childers MD [facility] CPT-41772 Level 4 Est. Patient 14:18:34 [employer] Baltazar Childers MD [facility] CPT-54418 Level 4 Est. Patient 15:18:29 CDT Baltazar Childers MD [facility] CPT-79184 Level 3 Est. Patient 12:45:34 CDT Baltazar hCilders MD [facility] CPT-11935 Level 3 Est. Patient 10:10:11 CDT Baltazar Childers MD [facility] CPT-70571 Level 3 Est. Patient 14:07:50 CDT Baltazar Childers MD [facility] CPT-08888 Level 4 Est. Patient 12:26:10 [employer] Baltazar Childers MD [facility] CPT-08622 Level 4 Est. Patient 14:45:38 CDT Baltazar Childers MD [facility] CPT-23128 Level 4 New Patient 12:30:48 CDT Baltazar hinton MD [facility] Procedures Code Procedure Name Date Entry Date Standard Desc ription CPT-93231 Renal Panel - LAB USE ONLY 17:39:20 CDT 201 10/31/07 CPT-77278 CBC - LAB USE ONLY 17:39:20 CDT CPT-07635 Venipuncture Draw Fee 17:39:20 CDT CPT-82379 Venipuncture Draw Fee 14:33:30 CDT CPT-91371 Renal Panel - LAB USE ONLY 14:33:30 CDT 201 10/31/07 CPT-89810 CBC - LAB USE ONLY 14:33:29 CDT CPT-20775 Venipuncture Draw Fee 14:50:21 [employer] CPT-10657 Immunization Single Admin 17:35:35 CDT 2014 CPT-02137 Fluzone Quadrivalent preservative free ( >=3yrs.) 17:35:35 CDT CPT-05343 Venipuncture Draw Fee 12:10:27 [employer] CPT-23390 Fluzone Quadrivalent Intramuscular Suspe nsion 0.5 ML 10:49:13 CDT CPT-41493 First Vx Component - Ix admi n via ID IM or jet inj without physician counseling 15:17:19 [employer] CPT-47762 Pneumovax 15:17:19 [employer] CPT-94843 Pneumovax 14:52:45 [employer] CPT-53116 Venipuncture Draw Fee 14:06:30 [employer] CPT-000 Give Appropriate Flu Vaccine 14:18:34 [employer] 2 CPT-09879 Administration single or combination vac cine inc oral 14:46:00 [employer] CPT-23048 Influenza split virus > age 3 14:46:00 [employer] CPT-OV Office Visit 19:13:16 CDT CPT-28358 Zostavax 18:41:56 CDT CPT-53656 Administration single or combination vac cine inc oral 12:56:39 CDT CPT-58927 Zoster Vaccine (Zostavax) 12:56:39 CDT 2012 CPT-59139 Venipuncture Draw Fee 10:58:57 CDT CPT-26726 Sono pelvis non OB uterus ovaries cervix 17:45:04 CDT CPT-76522 Sono retroperitoneal complete kidneys an d bladder 17:14:36 CDT CPT-OV Office Visit 14:59:38 [employer] CPT-J1070 Depo Testosterone 100 mg 14:50:13 CDT 03/05 CPT-94788 Abx/Therapy Injection 14:50:13 CDT CPT-06269 Administration single or combination vac cine inc oral 14:34:43 CDT CPT-00856 Influenza split virus > age 3 14:34:43 CDT CPT-J1070 Depo Testosterone 100 mg 17:37:13 CDT 01/11 CPT-64876 Abx/Therapy Injection 17:37:13 CDT CPT-17798 Venipuncture Draw Fee 16:30:13 CDT CPT-14036 Venipuncture Draw Fee 16:29:43 CDT CPT-J1070 Depo Testosterone 100 mg 14:45:38 CDT 01/11
--- OUTSIDE RECORDS SUMMARY | 2019-10-27 12:45 | XMS REPORT | Clinical Summary ---
Author Author Admin, Elba Lance [facility] Address Unknown Phone Unavailable Allergies, Adverse Reactions, 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 [employer] Benign neoplasm of colon PERIPHERAL NEUROPATHY 356.9 Active Baltazar Nikcerson MD Unspecified hereditary and idiopathic peripheral neuropathy [...] ronary atherosclerosis of unspecified type of vessel, [place] or graft OTH NONSPC ABN FINDNG RAD&OTH [...] 1 tablet daily for 4 days AZITHROMYCIN 27209561944 No Longer A ctive Baltazar Childers MD Active LANTUS SOLOSTAR 100 UNIT/ML SUBCUTANEOUS SOLUTION PEN- INJECTOR 30 units SC daily INSULIN GLARGINE 97758481303 Active Baltazar Childers MD Active AMLODIPINE BESYLATE 5 MG ORAL TABLET 1 tab daily for HTN AMLODIPINE BESYLATE 78615642934 Active Baltazar Childers MD Active SYNTHROID 100 MCG ORAL TABLET 1 tablet by mouth daily LEVOTHYROXINE SODIUM 41277596154 Active Baltazar Childers MD Active GLIPIZIDE 10 MG ORAL TABLET take 2 tablets twice daily GLIPIZIDE 86246708776 Active Baltaazr Childers MD Active SUCRALFATE 1 GM ORAL TABLET 1 four times a day to coat the stoma ch SUCRALFATE 34832520139 No Longer Active Baltazar Childers MD Active PEN NEEDLES 31G X 6 MM use 1 daily INSULIN PEN NE EDLE 40192653437 Active KENDALL Juarez Active TOUJEO SOLOSTAR 300 UNIT/ML SUBCUTANEOUS SOLUTION PEN- INJECTOR 10 units SC daily INSULIN GLARGINE 91554103346 No Longer Active Rola ARGUETA Active NAPROXEN SODIUM 220 MG ORAL TABLET 1 three times a day as needed NAPROXEN SODIUM 89086322773 No Longer Active Baltazar Childers MD Active ATORVASTATIN CALCIUM 20 MG ORAL TABLET Take 1 tab daily ATORVASTATIN CALCIUM 04606798942 Active Baltazar Childers MD A ctive FUROSEMIDE 40 MG ORAL TABLET Take one by mouth daily FUROSEMIDE 43644392775 Active Jessy Arellano LPN Active LISINOPRIL 20 MG ORAL TABLET Take one by mouth daily at bedtime LISINOPRIL 03428588812 No Longer Active Baltazar Childers MD Active ONETOUCH ULTRA BLUE IN VITRO STRIP Test twice a day 07/11/11 GLUCOSE BLOOD 73526617263 No Longer Active Baltazar Childers MD Acti ve TRUEPLUS LANCETS 33G Test twice a day LANCETS 8399783 5189 Active KENDALL Juarez Active TRUEDRAW LANCING DEVICE Test twice a day LANCET DEVICES 84771035511 Active Baltazar Childers MD Active TRUETRACK TEST IN VITRO STRIP Test twice a day GLUCOSE BLOOD 82729915630 Active KENDALL Juarez Active TRUETRACK BLOOD GLUCOSE w/Device KIT Test twice a day BLOOD GLUCOSE MONITORING SUPPL 93676730060 Active Baltazar Childers MD Activ e HYDROCODONE-ACETAMINOPHEN 7.5-325 MG ORAL TABLET Take 1 tab every 6-8 hours PRN HYDROCODONE-ACETAMINOPHEN 76941334293 Active Baltazar Nickerson MD Active NORTRIPTYLINE HCL 50 MG ORAL CAPSULE 1 every night for neuropathy 2 NORTRIPTYLINE HCL 03492661056 Active Baltazar Childers MD Acti ve GABAPENTIN 300 MG ORAL CAPSULE 1 three times a day GABAPENTIN 21501223246 Active Baltazar Childers MD Active GABAPENTIN 300 MG ORAL CAPSULE 1 po qd x 2 days, then 1 po BID x 2 days, then 1 po TID GABAPENTIN 41408559726 No Longer Active Baltazar Childers MD Active TRAMADOL HCL 50 MG ORAL TABLET 1 twice a day as needed for pain 201 07/27/28 TRAMADOL HCL 90298702281 Active Baltazar Childers MD Active NAPROXEN 500 MG ORAL TABLET 1 tablet by mouth twice daily NAPROXEN 99788783229 No Longer Active Baltazar Childers MD Active PROAIR HFA 108 (90 Base) MCG/ACT INHALATION AEROSOL SO LUTION 2 puffs four times a day as needed ALBUTEROL SULFATE 97555260378 Active Paul Childers MD Active DEPO-TESTOSTERONE 200 MG/ML INTRAMUSCULAR SOLUTION as directed TESTOSTERONE CYPIONATE 18277798723 No Longer Active Baltazar Childers MD Active LIPITOR 20 MG ORAL TABLET Take one by mouth daily in evening ATORVASTATIN CALCIUM 00944717487 No Longer Active Baltazar Childers MD Active CRESTOR 10 MG ORAL TABLET 1 by mouth every day ROSUVASTATIN CALCIUM 40370006078 No Longer Active Baltazar Childers MD Active PHENTERMINE HCL 37.5 MG ORAL TABLET Take one by mouth daily PHENTERMINE HCL 17617348187 No Longer Active Baltazar Childers MD Ac tive ROBAXIN-750 750 MG ORAL TABLET Take one by mouth daily METHOCARBAMOL 25145002917 Active Baltazar Childers MD Active TIZANIDINE HCL 4 MG ORAL TABLET 1 daily as needed for muscle spa sm TIZANIDINE HCL 48158352331 No Longer Active Dawna Salazar RN Active [id number] 50-325-40 MG ORAL TABLET 1 fo ur times a day as needed for heacache [id number] 42132627523 Active KENDALL Juarez Active SUMATRIPTAN SUCCINATE 100 MG ORAL TABLET 1 tablet by m outh at onset of migraine as needed SUMATRIPTAN SUCCINATE 04142337358 Active Baltazar Nickerson MD Active LORATADINE 10 MG ORAL TABLET Take one by mouth daily LORATADINE 16933299556 Active Baltazar Childers MD Active OMEPRAZOLE 20 MG ORAL CAPSULE DELAYED RELEASE Take one by mouth jostin ly OMEPRAZOLE 78925351709 Active Baltazar Childers MD Active HYDROXYZINE HCL 25 MG ORAL TABLET Take one by mouth daily HYDROXYZINE HCL 06428935922 Active Baltazar Childers MD Active ALPRAZOLAM 1 MG ORAL TABLET 1 tablet by mouth daily at bedti va for restless leg ALPRAZOLAM 81186136344 Active Baltazar Childers MD Active METFORMIN HCL 1000 MG ORAL TABLET Take one by mouth twice daily METFORMIN HCL 72509731299 Active Baltazar Childers MD Active TIZANIDINE HCL 4 MG ORAL TABLET 1 daily as needed for muscle spa sm TIZANIDINE HCL 4 MG ORAL TABLET 213641 TIZANIDINE HCL Inactive PHENTERMINE HCL 37.5 MG ORAL TABLET Take one by mouth daily PHENTERMINE HCL 37.5 MG ORAL TABLET 226516 PHENTERMINE HCL Inac tive CRESTOR 10 MG ORAL TABLET 1 by mouth every day CRESTOR 10 MG ORAL TABLET 354910 ROSUVASTATIN CALCIUM Inactive LIPITOR 20 MG ORAL TABLET Take one by mouth daily in evening LIPITOR 20 MG ORAL TABLET 737788 ATORVASTATIN CALCIUM Inactive DEPO-TESTOSTERONE 200 MG/ML INTRAMUSCULAR SOLUTION as directed DEPO-TESTOSTERONE 200 MG/ML INTRAMUSCULAR SOLUTION 865467 RUFINO TOSTERONE CYPIONATE Inactive NAPROXEN 500 MG ORAL TABLET 1 tablet by mouth twice daily NAPROXEN 500 MG ORAL TABLET 943828 NAPROXEN Inactive GABAPENTIN 300 MG ORAL CAPSULE 1 po qd x 2 days, then 1 po BID x 2 days, then 1 po TID GABAPENTIN 300 MG ORAL CAPSULE 843216 GABAP ENTIN Inactive ONETOUCH ULTRA BLUE IN VITRO STRIP Test twice a day 07/11/11 ONETOUCH ULTRA BLUE IN VITRO STRIP GLUCOSE BLOOD Inact amie NAPROXEN SODIUM 220 MG ORAL TABLET 1 three times a day as needed NAPROXEN SODIUM 220 MG ORAL TABLET 067220 NAPROXEN SODI UM Inactive TOUJEO SOLOSTAR 300 UNIT/ML SUBCUTANEOUS SOLUTION PEN- INJECTOR 10 units SC daily TOUJEO SOLOSTAR 300 UNIT/ML SUBCUTANEOUS SOLUTION PEN-INJECTOR INSULIN GLARGINE Inactive SUCRALFATE 1 GM ORAL TABLET 1 four times a day to coat the stoma ch SUCRALFATE 1 GM ORAL TABLET 194362 SUCRALFATE Inac tive ZITHROMAX Z-ISAIAS 250 MG ORAL TABLET Take two tablets to day and then 1 tablet daily for 4 days ZITHROMAX Z-ISAIAS 250 MG ORAL TAB LET 323283 AZITHROMYCIN Inactive Immunizations Vaccine Administration Date Value Standard Floyd cription pneumococcal immunization administered Pneumovax 23 [CVX33] pneumococcal polysaccharide vaccine, 23 valent Seasonal influenza vaccine, injectable, containing preservative, for > 3 years old (Afluria, FluLaval, Fluzone, Fluvirin, Fluarix, Agriflu(>= 18 yo)) Fluzone (>3 yrs.) [[id number]] Influenza, seasonal, inject able Seasonal influenza vaccine, injectable, containing preservative, for > 3 years old (Afluria, FluLaval, Fluzone, Fluvirin, Fluarix, Agriflu(>= 18 yo)) Fluzone (>3 yrs.) [JBG661] Influenza, seasonal, inject able Vital Signs Date [...] - Chem istry sodium, serum 139 mmol/L 363-951 9264/10/03 potassium, serum 4.7 mmol/L 3.5-5.2 chloride, serum 98 mmol/L 98-107 carbon dioxide, venous blood 28.7 mmol/L 21.0-32 .0 blood glucose 218 mg/dL 65-110 calcium, serum 9.8 mg/dL 8.5-10.1 urea nitrogen, blood 19 mg/dL 7-18 creatinine, serum 1.68 mg/dL 0.60-1.30 Lab Report: Basic Metabolic Panel, HGBA1 C - Chemistry sodium, serum 143 mmol/L 825-541 9489/06/19 potassium, serum 5.9 mmol/L 3.5-5.2 chloride, serum 105 mmol/L 98-107 carbon dioxide, venous blood 30.2 mmol/L 21.0-32 .0 blood glucose 189 mg/dL 65-110 calcium, serum 9.7 mg/dL 8.5-10.1 urea nitrogen, blood 37 mg/dL 7-18 creatinine, serum 2.11 mg/dL 0.55-1.30 hemoglobin A1C, blood, as % of total hemoglobin 8.2 % 4.3-6.0 Lab Report: CBC, Renal Panel - Chemistry sodium, serum 142 mmol/L 649-741 9447/08/11 potassium, serum 4.8 mmol/L 3.5-5.2 chloride, serum [...] Panel - Chemistry sodium, serum 143 mmol/L 622-110 9207/12/19 carbon dioxide, venous blood 32.5 mmol/L 21.0-32 .0 potassium, serum 4.9 mmol/L 3.5-5.2 chloride, serum 101 mmol/L 98-107 blood glucose 129 mg/dL 65-110 urea nitrogen, blood 18 mg/dL 7-18 creatinine, serum 1.79 mg/dL 0.55-1.30 alanine aminotransferase (SGPT), serum 34 U/L 12-78 aspartate aminotransferase (SGOT), serum 26 U/L 15-37 calcium, serum 8.9 mg/dL 8.5-10.1 bilirubin, serum, total 0.30 mg/dL 0.00-1.00 cholesterol, serum 214 mg/dL 429-663 3247/12/19 triglyceride, serum, fasting 351 mg/dL 30-200 HDL [...] 4.3-6.0 Encounters Code Encounter Date Provider Facility CPT-78726 Level 4 Est. Patient 12:25:11 CDT Baltazar Childers MD [facility]-20776 Level 4 Est. Patient 14:22:31 CDT Baltazar Childers MD [facility]-66168 Level 4 Est. Patient 15:44:38 CDT Shonna Elena CASTELLANOS [facility] CPT-52341 Level 4 Est. Patient 11:34:17 CDT Baltazar Childers MD [facility]-63876 Level 3 Est. Patient 16:40:40 CDT Baltazar Childers MD [facility] CPT-34246 Level 4 Est. Patient 10:41:24 CDT Baltazar Childers MD [facility]-14327 Level 4 Est. Patient 16:01:48 CDT Baltazar Childers MD [facility]-65402 Level 4 Est. Patient 16:54:07 GRINDER SET UP OPERATOR THREAD TOOL Baltazar Childers MD [facility]-84765 Level 4 Est. Patient 15:42:12 CDT Baltazar Childers MD [facility] CPT-25500 Level 4 Est. Patient 11:29:55 CDT Baltazar Childers MD [facility] CPT-71596 Level 4 Est. Patient 14:15:19 CDT Baltazar Childers MD [facility] CPT-31620 Level 4 Est. Patient 12:20:13 CDT Baltazar Childers MD [facility] CPT-24827 Level 4 Est. Patient 14:52:45 GRINDER SET UP OPERATOR THREAD TOOL Baltazar Childers MD [facility] CPT-54955 Level 4 Est. Patient 14:18:34 GRINDER SET UP OPERATOR THREAD TOOL Baltazar Childers MD [facility]-78407 Level 4 Est. Patient 15:18:29 CDT Baltazar Childers MD [facility] CPT-08846 Level 3 Est. Patient 12:45:34 CDT Baltazar Childers MD [facility] CPT-11237 Level 3 Est. Patient 10:10:11 CDT Baltazar Childers MD [facility] CPT-30805 Level 3 Est. Patient 14:07:50 CDT Baltazar Childers MD [facility] CPT-78410 Level 4 Est. Patient 12:26:10 GRINDER SET UP OPERATOR THREAD TOOL Baltazar Childers MD [facility] CPT-26818 Level 4 Est. Patient 14:45:38 CDT Baltazar Childers MD [facility] CPT-46689 Level 4 New Patient 12:30:48 CDT Baltazar hinton MD [facility] Procedures Code Procedure Name Date Entry Date Standard Desc ription CPT-92073 First Vx - Ix admin via ID I M or jet injects without counseling by physician 13:08:59 CDT CPT-16628 Fluzone Quadrivalent Intramuscular Suspe nsion 0.5 ML 13:08:59 CDT CPT-34862 Venipuncture Draw Fee 12:04:12 CDT CPT-39493 Lipid - LAB USE ONLY 17:39:15 GRINDER SET UP OPERATOR THREAD TOOL 9 CPT-63247 HGBA1C - LAB USE ONLY 17:39:15 GRINDER SET UP OPERATOR THREAD TOOL CPT-00283 CMP - LAB USE ONLY 17:39:14 GRINDER SET UP OPERATOR THREAD TOOL CPT-10946 Venipuncture Draw Fee 17:39:14 GRINDER SET UP OPERATOR THREAD TOOL CPT-52109 First Vx - Ix admin via ID I M or jet injects without counseling by physician 16:55:17 GRINDER SET UP OPERATOR THREAD TOOL CPT-30025 Fluzone Quadrivalent Intramuscular Suspe nsion 0.5 ML 16:55:17 GRINDER SET UP OPERATOR THREAD TOOL CPT-72610 Renal Panel - LAB USE ONLY 17:39:20 CDT 201 10/31/07 CPT-96953 CBC - LAB USE ONLY 17:39:20 CDT CPT-72014 Venipuncture Draw Fee 17:39:20 CDT CPT-65387 Venipuncture Draw Fee 14:33:30 CDT CPT-55254 Renal Panel - LAB USE ONLY 14:33:30 CDT 201 10/31/07 CPT-23275 CBC - LAB USE ONLY 14:33:29 CDT CPT-33375 Venipuncture Draw Fee 14:50:21 GRINDER SET UP OPERATOR THREAD TOOL CPT-19719 Immunization Single Admin 17:35:35 CDT 2014 CPT-46340 Fluzone Quadrivalent preservative free ( >=3yrs.) 17:35:35 CDT CPT-57550 Venipuncture Draw Fee 12:10:27 GRINDER SET UP OPERATOR THREAD TOOL CPT-93974 Fluzone Quadrivalent Intramuscular Suspe nsion 0.5 ML 10:49:13 CDT CPT-23503 First Vx Component - Ix admi n via ID IM or jet inj without physician counseling 15:17:19 GRINDER SET UP OPERATOR THREAD TOOL CPT-22666 Pneumovax 23 15:17:19 GRINDER SET UP OPERATOR THREAD TOOL CPT-63804 Pneumovax 14:52:45 GRINDER SET UP OPERATOR THREAD TOOL CPT-08010 Venipuncture Draw Fee 14:06:30 GRINDER SET UP OPERATOR THREAD TOOL CPT-000 Give Appropriate Flu Vaccine 14:18:34 GRINDER SET UP OPERATOR THREAD TOOL 2 CPT-69356 Administration single or combination vac cine inc oral 14:46:00 GRINDER SET UP OPERATOR THREAD TOOL CPT-22777 Influenza split virus > age 3 14:46:00 GRINDER SET UP OPERATOR THREAD TOOL CPT-OV Office Visit 19:13:16 CDT CPT-44619 Zostavax 18:41:56 CDT CPT-33491 Administration single or combination vac cine inc oral 12:56:39 CDT CPT-01380 Zoster Vaccine (Zostavax) 12:56:39 CDT 2012 CPT-62298 Venipuncture Draw Fee 10:58:57 CDT CPT-04913 Sono pelvis non OB uterus ovaries cervix 17:45:04 CDT CPT-44794 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
--- OUTSIDE RECORDS SUMMARY | 2019-10-27 12:45 | XMS REPORT | Clinical Summary ---
Author Author Abhishek, Elba Lance [facility] Address Unknown Phone Unavailable Allergies, Adverse Reactions, 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 [place] Benign neoplasm of colon PERIPHERAL NEUROPATHY 356.9 [...] Test twice a day GLUCO SE BLOOD 65997774371 No Longer Active Baltazar Childers MD Active TRUEPLUS LANCETS 33G MISC Test twice a day LANCET S 57833570073 Active Baltazar Childers MD Active TRUEDRAW LANCING DEVICE MISC Test twice a day L ANCET DEVICES 43383817589 Active Baltazar Childers MD Active TRUETRACK TEST STRP Test twice a day GLUCOSE BLOO D 48668215774 Active Baltazar Childers MD Active TRUETRACK BLOOD GLUCOSE W/DEVICE KIT Test twice a day BLOOD GLUCOSE MONITORING SUPPL 46887654904 Active Baltazar Childers MD Activ e HYDROCODONE-ACETAMINOPHEN 7.5-325 MG TABS Take 1 tab every 6-8 hour s PRN HYDROCODONE-ACETAMINOPHEN 56133117917 Active Gato Rae MD Active NORTRIPTYLINE HCL 50 MG CAPS 1 every night for neuropathy 4 NORTRIPTYLINE HCL 08175502901 Active Baltazar Childers MD Acti ve GABAPENTIN 300 MG CAPS 1 three times a day GABAPE NTIN 00378248768 Active Kelly Iraheta LPN Active GABAPENTIN 300 MG CAPS 1 po qd x 2 days, then 1 po BID x 2 d ays, then 1 po TID GABAPENTIN 27144785769 No Longer Active Baltazar silverman MD Active TRAMADOL HCL 50 MG TABS 1 twice a day as needed for pain TRAMADOL HCL 29023553001 Active Baltazar Childers MD Active NAPROXEN 500 MG TABS 1 tablet by mouth twice daily NAPROXEN 75172664192 No Longer Active Baltazar Childers MD Active PROAIR HFA 108 (90 BASE) MCG/ACT AERS 2 puffs four times a d ay as needed ALBUTEROL SULFATE 20179849504 Active Baltazar Childers MD Active DEPO-TESTOSTERONE 200 MG/ML OIL as directed RUFINO TOSTERONE CYPIONATE 20088352342 No Longer Active Baltazar Childers MD Active LIPITOR 20 MG TABS Take one by mouth daily in evening ATORVASTATIN CALCIUM 25609641481 No Longer Active Baltazar Childers MD Activ e CRESTOR 10 MG TABS 1 by mouth every day R OSUVASTATIN CALCIUM 97070620908 No Longer Active Baltazar Childers MD Activ e PHENTERMINE HCL 37.5 MG TABS Take one by mouth daily 2 PHENTERMINE HCL 52434288688 No Longer Active Baltazar Childers MD Activ e ROBAXIN-750 750 MG TABS Take one by mouth daily ME THOCARBAMOL 47460385824 Active Baltazar Childers MD Active TIZANIDINE HCL 4 MG TABS 1 daily as needed for muscle spasm 2011 TIZANIDINE HCL 11541593668 No Longer Active Dawna Salazar RN Active VILUVXHQCL-NXAE-PUZTNHFR 50-325-40 MG TABS 1 four time s a day as needed for heacache [id number] 69391790167 Active Baltazar Childers MD Active SUMATRIPTAN SUCCINATE 100 MG TABS 1 tablet by mouth at onset of migraine as needed SUMATRIPTAN SUCCINATE 21293620378 Active Baltazar bynum MD Active LORATADINE 10 MG TABS Take one by mouth daily LORATADINE 45773860851 Active Baltazar Childers MD Active FUROSEMIDE 40 MG TABS Take one by mouth daily FUROSEMIDE 46694248210 Active Baltazar Childers MD Active LISINOPRIL 20 MG TABS Take one by mouth daily at bedtime LISINOPRIL 43437126810 Active Baltazar Childers MD Active OMEPRAZOLE 20 MG CPDR Take one by mouth daily OMEPRAZOLE 84835691958 Active Baltazar Childers MD Active HYDROXYZINE HCL 25 MG TABS Take one by mouth daily HYDROXYZINE HCL 04951455247 Active Dawna Lew Active GLIPIZIDE 10 MG TABS 1 tablet by mouth twice daily GLIPIZIDE 13316412047 Active Baltazar Childers MD Active ALPRAZOLAM 1 MG TABS 1 tablet by mouth daily at bedtime for restles s leg ALPRAZOLAM 04221163622 Active Baltazar Childers MD Active METFORMIN HCL 1000 MG TABS Take one by mouth twice daily METFORMIN HCL 00192867288 Active Baltazar Childers MD Active TIZANIDINE HCL 4 MG TABS 1 daily as needed for muscle spasm 2011 TIZANIDINE HCL 4 MG TABS 089267 TIZANIDINE HCL Inactiv e PHENTERMINE HCL 37.5 MG TABS Take one by mouth daily 2 PHENTERMINE HCL 37.5 MG TABS 428754 PHENTERMINE HCL Inactive CRESTOR 10 MG TABS 1 by mouth every day C RESTOR 10 MG TABS ROSUVASTATIN CALCIUM Inactive LIPITOR 20 MG TABS Take one by mouth daily in evening LIPITOR 20 MG TABS 750215 ATORVASTATIN CALCIUM Inactive DEPO-TESTOSTERONE 200 MG/ML OIL as directed 8 DEPO-TESTOSTERONE 200 MG/ML OIL 271992 TESTOSTERONE CYPIONATE Inactive NAPROXEN 500 MG TABS 1 tablet by mouth twice daily 201 07/27/22 NAPROXEN 500 MG TABS 056009 NAPROXEN Inactive GABAPENTIN 300 MG CAPS 1 po qd x 2 days, then 1 po BID x 2 d ays, then 1 po TID GABAPENTIN 300 MG CAPS 514434 GABAPENTIN Inact amie ONETOUCH ULTRA BLUE STRP Test twice a day ONETOUCH ULTRA BLUE STRP GLUCOSE BLOOD Inactive Immunizations Vaccine Administration Date Value Standard Floyd cription pneumococcal immunization administered Pneumovax 23 [CVX33] pneumococcal polysaccharide vaccine, 23 valent Seasonal influenza vaccine, injectable, containing preservative, for > 3 years old (Afluria, FluLaval, Fluzone, Fluvirin, Fluarix, Agriflu(>= 18 yo)) Fluzone (>3 yrs.) [AMI060] Influenza, seasonal, inject able Seasonal influenza vaccine, injectable, containing preservative, for > 3 years old (Afluria, FluLaval, Fluzone, Fluvirin, Fluarix, Agriflu(>= 18 yo)) Fluzone (>3 yrs.) [HAL277] Influenza, seasonal, inject able Vital Signs Date [...] - Chem istry sodium, serum 140 mmol/L 084-781 8163/05/05 potassium, serum 4.9 mmol/L 3.5-5.2 chloride, serum [...] Panel - Chemistry sodium, serum 139 mmol/L 322-883 8274/01/20 potassium, serum 5.3 mmol/L 3.5-5.2 chloride, serum [...] mg/g mg/g{creat} 0-29 cholesterol, serum 319 mg/dL 271-865 9109/08/21 triglyceride, serum, fasting 546 mg/dL 30-200 HDL cholesterol, serum 39 mg/dL 32-96 LDL cholesterol, serum 167.00 mg/dL 5.00-130.00 hemoglobin A1C, blood, as % of total hemoglobin 7.7 % 4.3-6.0 sodium, serum 138 mmol/L 532-496 1781/08/21 potassium, serum 4.3 mmol/L 3.5-5.2 chloride, serum [...] 0-19 Encounters Code Encounter Date Provider Facility CPT-19498 Level 4 Est. Patient 11:29:55 CDT Baltazar Childers MD [facility] CPT-76427 Level 4 Est. Patient 14:15:19 CDT Baltazar Childers MD [facility] CPT-40959 Level 4 Est. Patient 12:20:13 CDT Baltazar Childers MD [facility] CPT-61211 Level 4 Est. Patient 14:52:45 CORRECTIONAL CAPTAIN Baltazar Childers MD [facility] CPT-10750 Level 4 Est. Patient 14:18:34 CORRECTIONAL CAPTAIN Baltazar Childers MD [facility] CPT-69026 Level 4 Est. Patient 15:18:29 CDT Baltazar Childers MD [facility] CPT-34477 Level 3 Est. Patient 12:45:34 CDT Baltazar Childers MD [facility] CPT-96975 Level 3 Est. Patient 10:10:11 CDT Baltazar Childers MD [facility] CPT-27274 Level 3 Est. Patient 14:07:50 CDT Baltazar Childers MD [facility] CPT-55462 Level 4 Est. Patient 12:26:10 CORRECTIONAL CAPTAIN Baltazar Childers MD [facility] CPT-55890 Level 4 Est. Patient 14:45:38 CDT Baltazar Childers MD [facility] CPT-22140 Level 4 New Patient 12:30:48 CDT Baltazar hinton MD [facility] Procedures Code Procedure Name Date Entry Date Standard Desc ription CPT-85256 Venipuncture Draw Fee 12:10:27 CORRECTIONAL CAPTAIN CPT-75197 Fluzone Quadrivalent Intramuscular Suspe nsion 0.5 ML 10:49:13 CDT CPT-06825 First Vx Component - Ix admi n via ID IM or jet inj without physician counseling 15:17:19 CORRECTIONAL CAPTAIN CPT-95953 Pneumovax 23 15:17:19 CORRECTIONAL CAPTAIN CPT-48716 Pneumovax 14:52:45 CORRECTIONAL CAPTAIN CPT-24610 Venipuncture Draw Fee 14:06:30 CORRECTIONAL CAPTAIN CPT-000 Give Appropriate Flu Vaccine 14:18:34 CORRECTIONAL CAPTAIN 2 CPT-20046 Administration single or combination vac cine inc oral 14:46:00 CORRECTIONAL CAPTAIN CPT-02430 Influenza split virus > age 3 14:46:00 CORRECTIONAL CAPTAIN CPT-OV Office Visit 19:13:16 CDT CPT-91686 Zostavax 18:41:56 CDT CPT-00303 Administration single or combination vac cine inc oral 12:56:39 CDT CPT-32294 Zoster Vaccine (Zostavax) 12:56:39 CDT 2012 CPT-80148 Venipuncture Draw Fee 10:58:57 CDT CPT-79677 Sono pelvis non OB uterus ovaries cervix 17:45:04 CDT CPT-31798 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
--- OUTSIDE RECORDS SUMMARY | 2019-10-27 12:46 | XMS REPORT | Clinical Summary ---
Author Author Abhishek, Elba Lance Michelle [facility] Address Unknown Phone Unavailable Allergies, Adverse 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 LOIN TRIMMER Benign neoplasm of colon PERIPHERAL NEUROPATHY 356.9 Active Baltazar Nickerson MD Unspecified hereditary and idiopathic peripheral neuropathy PERSONAL HISTORY OF COLONIC POLYPS V12.72 Active 2 Lolis Thomas LOIN TRIMMER Personal history of colonic polyps PARESTHESIA, HANDS [...] atherosclerosis of unspecified type of vessel, [place] or graft OTH NONSPC ABN FINDNG RAD&OTH [...] a day for neuropathy 2 NORTRIPTYLINE HCL 25296819153 Active Baltazar Childers MD Acti ve ASPIRIN 81 MG TBEC Take one (1) tablet by mouth daily ASPIRIN 50836912512 Active Baltazar Childers MD Active GABAPENTIN 300 MG ORAL CAPSULE 1 three times a day 201 12/03/26 GABAPENTIN 60028097170 No Longer Active Baltazar Childers MD Activ e LISINOPRIL 20 MG ORAL TABLET 1 tablet by mouth daily at night 2016 LISINOPRIL 57846444055 Active Baltazar Childers MD Active ZITHROMAX Z-ISAIAS 250 MG ORAL TABLET Take two tablets to day and then 1 tablet daily for 4 days AZITHROMYCIN 77659243207 No Longer A ctive Baltazar Childers MD Active LANTUS SOLOSTAR 100 UNIT/ML SUBCUTANEOUS SOLUTION PEN- INJECTOR 30 units SC daily INSULIN GLARGINE 09196390622 Active Baltazar Childers MD Active AMLODIPINE BESYLATE 5 MG ORAL TABLET 1 tab daily for HTN AMLODIPINE BESYLATE 70041299245 Active Baltazar Childers MD Active SYNTHROID 100 MCG ORAL TABLET 1 tablet by mouth daily LEVOTHYROXINE SODIUM 24170782372 Active Baltazar Childers MD Active GLIPIZIDE 10 MG ORAL TABLET take 2 tablets twice daily GLIPIZIDE 79077098531 Active Baltazar Childers MD Active SUCRALFATE 1 GM ORAL TABLET 1 four times a day to coat the stoma ch SUCRALFATE 65350974490 No Longer Active Baltazar Childers MD Active PEN NEEDLES 31G X 6 MM use 1 daily INSULIN PEN NE EDLE 62120100180 Active KENDALL Juarez Active TOUJEO SOLOSTAR 300 UNIT/ML SUBCUTANEOUS SOLUTION PEN- INJECTOR 10 units SC daily INSULIN GLARGINE 53124918935 No Longer Active Rola hayes Herbert RMA Active NAPROXEN SODIUM 220 MG ORAL TABLET 1 three times a day as needed NAPROXEN SODIUM 72092646491 No Longer Active Baltazar Childers MD Active ATORVASTATIN CALCIUM 20 MG ORAL TABLET Take 1 tab daily ATORVASTATIN CALCIUM 52057214226 Active Baltazar Childers MD A ctive FUROSEMIDE 40 MG ORAL TABLET Take one by mouth daily FUROSEMIDE 51832799552 Active Baltazar Childers MD Active LISINOPRIL 20 MG ORAL TABLET Take one by mouth daily at bedtime LISINOPRIL 95668138568 No Longer Active Baltazar Childers MD Active ONETOUCH ULTRA BLUE IN VITRO STRIP Test twice a day 07/11/11 GLUCOSE BLOOD 42321856682 No Longer Active Baltazar Childers MD Acti ve TRUEPLUS LANCETS 33G Test twice a day LANCETS 1848632 0043 Active KENDALL Juarez Active TRUEDRAW LANCING DEVICE Test twice a day LANCET DEVICES 05822342546 Active Baltazar Childers MD Active TRUETRACK TEST IN VITRO STRIP Test twice a day GLUCOSE BLOOD 92209785426 Active Baltazar Childers MD Active TRUETRACK BLOOD GLUCOSE w/Device KIT Test twice a day BLOOD GLUCOSE MONITORING SUPPL 16549560819 Active Baltazar Childers MD Activ e HYDROCODONE-ACETAMINOPHEN 7.5-325 MG ORAL TABLET Take 1 tab every 6-8 hours PRN HYDROCODONE-ACETAMINOPHEN 90084262626 Active Baltazar Nickerson MD Active GABAPENTIN 300 MG ORAL CAPSULE 1 po qd x 2 days, then 1 po BID x 2 days, then 1 po TID GABAPENTIN 03629651222 No Longer Active Baltazar Childers MD Active TRAMADOL HCL 50 MG ORAL TABLET 1 twice a day as needed for pain 201 07/27/28 TRAMADOL HCL 90360433432 Active Baltazar Childers MD Active NAPROXEN 500 MG ORAL TABLET 1 tablet by mouth twice daily NAPROXEN 21002220433 No Longer Active Baltazar Childers MD Active PROAIR HFA 108 (90 Base) MCG/ACT INHALATION AEROSOL SO LUTION 2 puffs four times a day as needed ALBUTEROL SULFATE 13191993262 Active R gilberto Childers MD Active DEPO-TESTOSTERONE 200 MG/ML INTRAMUSCULAR SOLUTION as directed TESTOSTERONE CYPIONATE 27988544321 No Longer Active Baltazar Childers MD Active LIPITOR 20 MG ORAL TABLET Take one by mouth daily in evening ATORVASTATIN CALCIUM 52274558007 No Longer Active Baltazar Childers MD Active CRESTOR 10 MG ORAL TABLET 1 by mouth every day ROSUVASTATIN CALCIUM 29765137845 No Longer Active Baltazar Childers MD Active PHENTERMINE HCL 37.5 MG ORAL TABLET Take one by mouth daily PHENTERMINE HCL 64291926037 No Longer Active Baltazar Childers MD Ac tive ROBAXIN-750 750 MG ORAL TABLET Take one by mouth daily METHOCARBAMOL 73528887897 Active KENDALL Juarez Active TIZANIDINE HCL 4 MG ORAL TABLET 1 daily as needed for muscle spa sm TIZANIDINE HCL 56612813028 No Longer Active Dawna Salazar RN Active [id number] 50-325-40 MG ORAL TABLET 1 fo ur times a day as needed for heacache [id number]-[id number] 74217353592 Active Baltazar Childers MD Active SUMATRIPTAN SUCCINATE 100 MG ORAL TABLET 1 tablet by m outh at onset of migraine as needed SUMATRIPTAN SUCCINATE 41778179650 Active KENDALL Restrepo Active LORATADINE 10 MG ORAL TABLET Take one by mouth daily LORATADINE 11659434397 Active KENDALL Juarez Active OMEPRAZOLE 20 MG ORAL CAPSULE DELAYED RELEASE Take one by mouth jostin ly OMEPRAZOLE 83137236105 Active Baltazar Childers MD Active HYDROXYZINE HCL 25 MG ORAL TABLET Take one by mouth daily HYDROXYZINE HCL 83288893247 Active Baltazar Childers MD Active ALPRAZOLAM 1 MG ORAL TABLET 1 tablet by mouth daily at bedti me for restless leg ALPRAZOLAM 57659619771 Active Baltazar Childers MD Active METFORMIN HCL 1000 MG ORAL TABLET Take one by mouth twice daily METFORMIN HCL 00398371435 Active Baltazar Childers MD Active TIZANIDINE HCL 4 MG ORAL TABLET 1 daily as needed for muscle spa sm TIZANIDINE HCL 4 MG ORAL TABLET 363008 TIZANIDINE HCL Inactive PHENTERMINE HCL 37.5 MG ORAL TABLET Take one by mouth daily PHENTERMINE HCL 37.5 MG ORAL TABLET 823035 PHENTERMINE HCL Inac tive CRESTOR 10 MG ORAL TABLET 1 by mouth every day CRESTOR 10 MG ORAL TABLET 940644 ROSUVASTATIN CALCIUM Inactive LIPITOR 20 MG ORAL TABLET Take one by mouth daily in evening LIPITOR 20 MG ORAL TABLET 684814 ATORVASTATIN CALCIUM Inactive DEPO-TESTOSTERONE 200 MG/ML INTRAMUSCULAR SOLUTION as directed DEPO-TESTOSTERONE 200 MG/ML INTRAMUSCULAR SOLUTION 912495 RUFINO TOSTERONE CYPIONATE Inactive NAPROXEN 500 MG ORAL TABLET 1 tablet by mouth twice daily NAPROXEN 500 MG ORAL TABLET 110288 NAPROXEN Inactive GABAPENTIN 300 MG ORAL CAPSULE 1 po qd x 2 days, then 1 po BID x 2 days, then 1 po TID GABAPENTIN 300 MG ORAL CAPSULE 364030 GABAP ENTIN Inactive ONETOUCH ULTRA BLUE IN VITRO STRIP Test twice a day 07/11/11 ONETOUCH ULTRA BLUE IN VITRO STRIP GLUCOSE BLOOD Inact amie NAPROXEN SODIUM 220 MG ORAL TABLET 1 three times a day as needed NAPROXEN SODIUM 220 MG ORAL TABLET 151324 NAPROXEN SODI UM Inactive TOUJEO SOLOSTAR 300 UNIT/ML SUBCUTANEOUS SOLUTION PEN- INJECTOR 10 units SC daily TOUJEO SOLOSTAR 300 UNIT/ML SUBCUTANEOUS SOLUTION PEN-INJECTOR INSULIN GLARGINE Inactive SUCRALFATE 1 GM ORAL TABLET 1 four times a day to coat the stoma ch SUCRALFATE 1 GM ORAL TABLET 809874 SUCRALFATE Inac tive GABAPENTIN 300 MG ORAL CAPSULE 1 three times a day 201 12/03/26 GABAPENTIN 300 MG ORAL CAPSULE 665612 GABAPENTIN Inactive ZITHROMAX Z-ISAIAS 250 MG ORAL TABLET Take two tablets to day and then 1 tablet daily for 4 days ZITHROMAX Z-ISAIAS 250 MG ORAL TAB LET 077996 AZITHROMYCIN Inactive Immunizations Vaccine Administration Date Value Standard Floyd cription pneumococcal immunization administered Pneumovax 23 [CVX33] pneumococcal polysaccharide vaccine, 23 valent Seasonal influenza vaccine, injectable, containing preservative, for > 3 years old (Afluria, FluLaval, Fluzone, Fluvirin, Fluarix, Agriflu(>= 18 yo)) Fluzone (>3 yrs.) [[id number]] Influenza, seasonal, inject able Seasonal influenza vaccine, injectable, containing preservative, for > 3 years old (Afluria, FluLaval, Fluzone, Fluvirin, Fluarix, Agriflu(>= 18 yo)) Fluzone (>3 yrs.) [PEG926] Influenza, seasonal, inject able Vital Signs Date [...] 1.68 mg/dL 0.60-1.30 sodium, serum 139 mmol/L 584-662 6384/06/26 potassium, serum 4.8 mmol/L 3.5-5.2 chloride, serum 102 mmol/L 98-107 carbon dioxide, venous blood 29.1 mmol/L 21.0-32 .0 blood glucose 179 mg/dL 65-95 calcium, serum 9.7 mg/dL 8.5-10.1 urea nitrogen, blood 31 mg/dL 7-18 creatinine, serum 1.97 mg/dL 0.60-1.30 potassium, serum 4.7 mmol/L 3.5-5.2 chloride, serum 98 mmol/L 98-107 carbon dioxide, venous blood 28.7 mmol/L 21.0-32 .0 blood glucose 218 mg/dL 65-110 sodium, serum 139 mmol/L 136-145 Lab Report: CBC, Renal Panel - Chemistry sodium, serum 142 mmol/L 704-937 4684/08/11 potassium, serum 4.8 mmol/L 3.5-5.2 chloride, serum 103 mmol/L 98-107 carbon dioxide, venous blood 38.7 mmol/L 21.0-32 .0 creatinine, serum 1.69 mg/dL 0.60-1.30 blood glucose 179 mg/dL 65-110 urea nitrogen, blood 20 mg/dL 7-18 calcium, serum 9.9 mg/dL 8.5-10.1 Lab Report: CBC, Renal Panel - Hematolog y mean corpuscular volume, RBC 96 fL 80-97 hematocrit, blood 38.4 % 37.0-47.0 hemoglobin, blood 12.5 g/dL 12.0-16.0 erythrocyte (RBC) count 4.02 10^6/MM^3 10*6/mm3 3.80-5.8 0 leukocyte count, blood 7.2 10^3/MM^3 10*3/mm3 4.6-10.2 mean corpuscular hemoglobin, RBC 31.1 pg 27. [...] (L) - Chemistry cholesterol, serum 209 mg/dL 121-053 2958/12/27 triglyceride, serum, fasting 329 mg/dL 30-200 HDL cholesterol, serum 56 mg/dL 32-60 LDL cholesterol, serum 87 mg/dL 0-130 TSH 3.60 m[iU]/mL 0.36-3.74 Office Visit: Meds Check - Toxicology drug screen, urine, qualitative negative Encounters Code Encounter Date Provider Facility [facility]-[id number] Vst-Est Level V 14:26:27 CDT Aneudy Childers MD [facility]-21361 Level 4 Est. Patient 17:05:37 CDT Baltazar Childers MD [facility] CPT-07761 Level 4 Est. Patient 16:21:19 QUILL STRIPPER Baltazar Childers MD [facility]-41764 Level 4 Est. Patient 12:25:11 CDT Baltazar Childers MD [facility] CPT-93911 Level 4 Est. Patient 14:22:31 CDT Baltazar Childers MD [facility]-54843 Level 4 Est. Patient 15:44:38 CD[facility] Level 4 Est. Patient 11:34:17 CDT Baltazar Childers MD [facility] CPT-17641 Level 3 Est. Patient 16:40:40 CDT Baltazar Childers MD [facility] CPT-41438 Level 4 Est. Patient 10:41:24 CDT Baltazar Childers MD [facility] CPT-24781 Level 4 Est. Patient 16:01:48 CDT Baltazar Childers MD [facility] CPT-22594 Level 4 Est. Patient 16:54:07 QUILL STRIPPER Baltazar Childers MD [facility]-81611 Level 4 Est. Patient 15:42:12 CDT Baltazar Childers MD [facility] CPT-40863 Level 4 Est. Patient 11:29:55 CDT Baltazar Childers MD [facility] CPT-91369 Level 4 Est. Patient 14:15:19 CDT Baltazar Childers MD [facility] CPT-87337 Level 4 Est. Patient 12:20:13 CDT Baltazar Childers MD [facility] CPT-98532 Level 4 Est. Patient 14:52:45 QUILL STRIPPER Baltazar Childers MD [facility] CPT-06844 Level 4 Est. Patient 14:18:34 QUILL STRIPPER Baltazar Childers MD [facility] CPT-32393 Level 4 Est. Patient 15:18:29 CDT Baltazar Childers MD [facility] CPT-68486 Level 3 Est. Patient 12:45:34 CDT Baltazar Childers MD [facility] CPT-41476 Level 3 Est. Patient 10:10:11 CDT Baltazar Childers MD [facility] CPT-38801 Level 3 Est. Patient 14:07:50 CDT Baltazar Childers MD [facility] CPT-13747 Level 4 Est. Patient 12:26:10 QUILL STRIPPER Baltazar Childers MD [facility] CPT-88053 Level 4 Est. Patient 14:45:38 CDT Baltazar Childers MD [facility] CPT-89569 Level 4 New Patient 12:30:48 CDT Baltazar hinton MD [facility] Procedures Code Procedure Name Date Entry Date Standard Desc ription CPT-000 Give Appropriate Flu Vaccine 12:25:14 CDT 2 CPT-86686 First Vx - Ix admin via ID I M or jet injects without counseling by physician 13:08:59 CDT CPT-92425 Fluzone Quadrivalent Intramuscular Suspe nsion 0.5 ML 13:08:59 CDT CPT-54925 Venipuncture Draw Fee 12:04:12 CDT CPT-81804 Lipid - LAB USE ONLY 17:39:15 QUILL STRIPPER 9 CPT-70959 HGBA1C - LAB USE ONLY 17:39:15 QUILL STRIPPER CPT-99984 CMP - LAB USE ONLY 17:39:14 QUILL STRIPPER CPT-84777 Venipuncture Draw Fee 17:39:14 QUILL STRIPPER CPT-05731 First Vx - Ix admin via ID I M or jet injects without counseling by physician 16:55:17 QUILL STRIPPER CPT-87790 Fluzone Quadrivalent Intramuscular Suspe nsion 0.5 ML 16:55:17 QUILL STRIPPER CPT-62261 Renal Panel - LAB USE ONLY 17:39:20 CDT 201 10/31/07 CPT-14663 CBC - LAB USE ONLY 17:39:20 CDT CPT-65573 Venipuncture Draw Fee 17:39:20 CDT CPT-01720 Venipuncture Draw Fee 14:33:30 CDT CPT-98330 Renal Panel - LAB USE ONLY 14:33:30 CDT 201 10/31/07 CPT-15402 CBC - LAB USE ONLY 14:33:29 CDT CPT-66033 Venipuncture Draw Fee 14:50:21 QUILL STRIPPER CPT-74165 Immunization Single Admin 17:35:35 CDT 2014 CPT-87998 Fluzone Quadrivalent preservative free ( >=3yrs.) 17:35:35 CDT CPT-47799 Venipuncture Draw Fee 12:10:27 QUILL STRIPPER CPT-18862 Fluzone Quadrivalent Intramuscular Suspe nsion 0.5 ML 10:49:13 CDT CPT-20840 First Vx Component - Ix admi n via ID IM or jet inj without physician counseling 15:17:19 QUILL STRIPPER CPT-41446 Pneumovax 23 15:17:19 QUILL STRIPPER CPT-38661 Pneumovax 14:52:45 QUILL STRIPPER CPT-13034 Venipuncture Draw Fee 14:06:30 QUILL STRIPPER CPT-000 Give Appropriate Flu Vaccine 14:18:34 QUILL STRIPPER 2 CPT-01045 Administration single or combination vac cine inc oral 14:46:00 QUILL STRIPPER CPT-10834 Influenza split virus > age 3 14:46:00 QUILL STRIPPER CPT-OV Office Visit 19:13:16 CDT CPT-23693 Zostavax 18:41:56 CDT CPT-74682 Administration single or combination vac cine inc oral 12:56:39 CDT CPT-05742 Zoster Vaccine (Zostavax) 12:56:39 CDT 2012 CPT-19526 Venipuncture Draw Fee 10:58:57 CDT CPT-21208 Sono pelvis non OB uterus ovaries cervix 17:45:04 CDT CPT-31320 Sono retroperitoneal complete kidneys an d bladder 17:14:36 CDT CPT-OV Office Visit 14:59:38 QUILL STRIPPER CPT-J1070 Depo Testosterone 100 mg 14:50:13 CDT 03/05 CPT-95220 Abx/Therapy Injection 14:50:13 CDT CPT-79160 Administration single or combination vac cine inc oral 14:34:43 CDT CPT-31360 Influenza split virus > age 3 14:34:43 CDT CPT-J1070 Depo Testosterone 100 mg 17:37:13 CDT 01/11 CPT-79201 Abx/Therapy Injection 17:37:13 CDT CPT-64120 Venipuncture Draw Fee 16:30:13 CDT CPT-02116 Venipuncture Draw Fee 16:29:43 CDT CPT-J1070 Depo Testosterone 100 mg 14:45:38 CDT 01/11
--- OUTSIDE RECORDS SUMMARY | 2019-10-27 12:46 | XMS REPORT | Clinical Summary ---
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 LEAD Benign neoplasm of colon PERIPHERAL NEUROPATHY [...] ronary atherosclerosis of unspecified type of vessel, [place] or graft OTH NONSPC ABN FINDNG RAD&OTH [...] UTERUS, UNSPECIFIED 218.9 Active 201 08/01/12 Gayathri uHdson MD Leiomyoma of uterus, unspecified WELL WOMAN [...] 1 tablet daily for 4 days AZITHROMYCIN 37845101333 Active Baltazar Wayne Active LANTUS SOLOSTAR 100 UNIT/ML SC SOPN 30 units SC daily INSULIN GLARGINE 94691264954 Active Baltazar Childers MD Active AMLODIPINE BESYLATE 5 MG ORAL TABS 1 tab daily for HTN AMLODIPINE BESYLATE 87471003512 Active Baltazar Childers MD Active SYNTHROID 0.1 MG TAB 1 tablet by mouth daily LE VOTHYROXINE SODIUM 15527274700 Active Baltazar Childers MD Active GLIPIZIDE 10 MG TAB take 2 tablets twice daily GLIPIZIDE 83632512424 Active aBltazar Childers MD Active SUCRALFATE 1 GM TABS 1 four times a day to coat the stomach 2015 SUCRALFATE 94523333694 No Longer Active Baltazar Childers MD Active PEN NEEDLES 31G X 6 MM MISC use 1 daily INSULIN PEN NEEDLE 57447633836 Active Gato Rae MD Active TOUJEO SOLOSTAR 300 UNIT/ML SC SOPN 10 units SC daily INSULIN GLARGINE 57936122303 No Longer Active Martita ARGUETA Active NAPROXEN SODIUM 220 MG ORAL TABS 1 three times a day as needed 2 NAPROXEN SODIUM 90285086268 No Longer Active Baltazar Childers MD Active ATORVASTATIN CALCIUM 20 MG ORAL TABS Take 1 tab daily ATORVASTATIN CALCIUM 60385740845 Active Baltazar Childers MD Active FUROSEMIDE 40 MG TABS Take one by mouth daily FUROSEMIDE 68863227143 Active Baltazar Childers MD Active LISINOPRIL 20 MG TABS Take one by mouth daily at bedtime LISINOPRIL 29234758245 No Longer Active Baltazar Childers MD Active ONETOUCH ULTRA BLUE STRP Test twice a day GLUCO SE BLOOD 38311158435 No Longer Active Baltazar Childers MD Active TRUEPLUS LANCETS 33G MISC Test twice a day LANCET S 30787616403 Active KENDALL Juarez Active TRUEDRAW LANCING DEVICE MISC Test twice a day L ANCET DEVICES 25889308207 Active Baltazar Childers MD Active TRUETRACK TEST STRP Test twice a day GLUCOSE BLOO D 77021284655 Active KENDALL Juarez Active TRUETRACK BLOOD GLUCOSE W/DEVICE KIT Test twice a day BLOOD GLUCOSE MONITORING SUPPL 43971603501 Active Baltazar Childers MD Activ e HYDROCODONE-ACETAMINOPHEN 7.5-325 MG TABS Take 1 tab every 6-8 hour s PRN HYDROCODONE-ACETAMINOPHEN 71380424078 Active Baltazar Childers MD Active NORTRIPTYLINE HCL 50 MG CAPS 1 every night for neuropathy 4 NORTRIPTYLINE HCL 32150371390 Active Baltazar Childers MD Acti ve GABAPENTIN 300 MG CAPS 1 three times a day GABAPE NTIN 22834510837 Active Baltazar Childers MD Active GABAPENTIN 300 MG CAPS 1 po qd x 2 days, then 1 po BID x 2 d ays, then 1 po TID GABAPENTIN 63758297237 No Longer Active Baltazar silverman MD Active TRAMADOL HCL 50 MG TABS 1 twice a day as needed for pain TRAMADOL HCL 35190919250 Active Baltazar Childers MD Active NAPROXEN 500 MG TABS 1 tablet by mouth twice daily NAPROXEN 48023885162 No Longer Active Baltazar Childers MD Active PROAIR HFA 108 (90 BASE) MCG/ACT AERS 2 puffs four times a d ay as needed ALBUTEROL SULFATE 95359394049 Active Baltazar Childers MD Active DEPO-TESTOSTERONE 200 MG/ML OIL as directed RUFINO TOSTERONE CYPIONATE 84641579784 No Longer Active Baltazar Childers MD Active LIPITOR 20 MG TABS Take one by mouth daily in evening ATORVASTATIN CALCIUM 80240052535 No Longer Active Baltazar Childers MD Activ e CRESTOR 10 MG TABS 1 by mouth every day R OSUVASTATIN CALCIUM 53148794694 No Longer Active Baltazar Childers MD Activ e PHENTERMINE HCL 37.5 MG TABS Take one by mouth daily 2 PHENTERMINE HCL 09252037064 No Longer Active Baltazar Childers MD Activ e ROBAXIN-750 750 MG TABS Take one by mouth daily ME THOCARBAMOL 19739758960 Active Baltazar Childers MD Active TIZANIDINE HCL 4 MG TABS 1 daily as needed for muscle spasm 2011 TIZANIDINE HCL 17993789174 No Longer Active Dawnatung Salazar RN Active EIJSSURZFS-[id number]-LCLLBHIR 50-325-40 MG TABS 1 four time s a day as needed for heacache GQFTOWBSIZ-[id number]-[id number] 58323070468 Active Bethrenetta Carr KENDALL Active SUMATRIPTAN SUCCINATE 100 MG TABS 1 tablet by mouth at onset of migraine as needed SUMATRIPTAN SUCCINATE 12849823288 Active Baltazar bynum MD Active LORATADINE 10 MG TABS Take one by mouth daily LORATADINE 38932252529 Active Baltazar Childers MD Active OMEPRAZOLE 20 MG CPDR Take one by mouth daily OMEPRAZOLE 04935355330 Active Baltazar Childers MD Active HYDROXYZINE HCL 25 MG TABS Take one by mouth daily HYDROXYZINE HCL 35478835962 Active Baltazar Childers MD Active ALPRAZOLAM 1 MG TABS 1 tablet by mouth daily at bedtime for restles s leg ALPRAZOLAM 59813812106 Active Baltazar Childers MD Active METFORMIN HCL 1000 MG TABS Take one by mouth twice daily METFORMIN HCL 24437574723 Active Baltazar Childers MD Active TIZANIDINE HCL 4 MG TABS 1 daily as needed for muscle spasm 2011 TIZANIDINE HCL 4 MG TABS 545204 TIZANIDINE HCL Inactiv e PHENTERMINE HCL 37.5 MG TABS Take one by mouth daily 2 PHENTERMINE HCL 37.5 MG TABS 216066 PHENTERMINE HCL Inactive CRESTOR 10 MG TABS 1 by mouth every day C RESTOR 10 MG TABS 076202 ROSUVASTATIN CALCIUM Inactive LIPITOR 20 MG TABS Take one by mouth daily in evening LIPITOR 20 MG TABS 350496 ATORVASTATIN CALCIUM Inactive DEPO-TESTOSTERONE 200 MG/ML OIL as directed 8 DEPO-TESTOSTERONE 200 MG/ML OIL 142044 TESTOSTERONE CYPIONATE Inactive NAPROXEN 500 MG TABS 1 tablet by mouth twice daily 201 07/27/22 NAPROXEN 500 MG TABS 034030 NAPROXEN Inactive GABAPENTIN 300 MG CAPS 1 po qd x 2 days, then 1 po BID x 2 d ays, then 1 po TID GABAPENTIN 300 MG [facility] 566329 GABAPENTIN Inact amie ONETOUCH ULTRA BLUE STRP Test twice a day ONETOUCH ULTRA BLUE STRP GLUCOSE BLOOD Inactive NAPROXEN SODIUM 220 MG ORAL TABS 1 three times a day as needed 2 NAPROXEN SODIUM 220 MG ORAL TABS 755310 NAPROXEN SODIUM Inactive TOUJEO SOLOSTAR 300 UNIT/ML SC SOPN 10 units SC daily TOUJEO SOLOSTAR 300 UNIT/ML SC SOPN INSULIN GLARGINE Inac tive SUCRALFATE 1 GM TABS 1 four times a day to coat the stomach 2015 SUCRALFATE 1 GM TABS 912718 SUCRALFATE Inactive Immunizations Vaccine Administration Date Value Standard Floyd cription pneumococcal immunization administered Pneumovax 23 [CVX33] pneumococcal polysaccharide vaccine, 23 valent Seasonal influenza vaccine, injectable, containing preservative, for > 3 years old (Afluria, FluLaval, Fluzone, Fluvirin, Fluarix, Agriflu(>= 18 yo)) Fluzone (>3 yrs.) [[id number]] Influenza, seasonal, inject able Seasonal influenza vaccine, injectable, containing preservative, for > 3 years old (Afluria, FluLaval, Fluzone, Fluvirin, Fluarix, Agriflu(>= 18 yo)) Fluzone (>3 yrs.) [[id number]] Influenza, seasonal, inject able Vital Signs Date [...] - Chem istry sodium, serum 139 mmol/L 866-824 1772/10/03 potassium, serum 4.7 mmol/L 3.5-5.2 chloride, serum 98 mmol/L 98-107 carbon dioxide, venous blood 28.7 mmol/L 21.0-32 .0 blood glucose 218 mg/dL 65-110 calcium, serum 9.8 mg/dL 8.5-10.1 urea nitrogen, blood 19 mg/dL 7-18 creatinine, serum 1.68 mg/dL 0.60-1.30 Lab Report: Basic Metabolic Panel, HGBA1 C - Chemistry sodium, serum 143 mmol/L 736-911 1719/06/19 potassium, serum 5.9 mmol/L 3.5-5.2 chloride, serum 105 mmol/L 98-107 carbon dioxide, venous blood 30.2 mmol/L 21.0-32 .0 blood glucose 189 mg/dL 65-110 calcium, serum 9.7 mg/dL 8.5-10.1 urea nitrogen, blood 37 mg/dL 7-18 creatinine, serum 2.11 mg/dL 0.55-1.30 hemoglobin A1C, blood, as % of total hemoglobin 8.2 % 4.3-6.0 Lab Report: CBC, Renal Panel - Chemistry sodium, serum 142 mmol/L 416-062 1033/08/11 potassium, serum 4.8 mmol/L 3.5-5.2 chloride, serum [...] Panel - Chemistry sodium, serum 143 mmol/L 446-541 5089/12/19 carbon dioxide, venous blood 32.5 mmol/L 21.0-32 .0 potassium, serum 4.9 mmol/L 3.5-5.2 chloride, serum 101 mmol/L 98-107 blood glucose 129 mg/dL 65-110 urea nitrogen, blood 18 mg/dL 7-18 creatinine, serum 1.79 mg/dL 0.55-1.30 alanine aminotransferase (SGPT), serum 34 U/L 12-78 aspartate aminotransferase (SGOT), serum 26 U/L 15-37 calcium, serum 8.9 mg/dL 8.5-10.1 bilirubin, serum, total 0.30 mg/dL 0.00-1.00 cholesterol, serum 214 mg/dL 032-190 9644/12/19 triglyceride, serum, fasting 351 mg/dL 30-200 HDL [...] 4.3-6.0 Encounters Code Encounter Date Provider Facility CPT-66672 Level 4 Est. Patient 12:25:11 CDT Baltazar Childers MD [facility]-77194 Level 4 Est. Patient 14:22:31 CDT Baltazar Childers MD [facility]-11038 Level 4 Est. Patient 15:44:38 CDT Shonnajean Parker APRN [facility]-98657 Level 4 Est. Patient 11:34:17 CDT Baltazar Childers MD [facility]-65164 Level 3 Est. Patient 16:40:40 CDT Baltazar Childers MD [facility]-43329 Level 4 Est. Patient 10:41:24 CDT Baltazar Childers MD [facility]-32232 Level 4 Est. Patient 16:01:48 CDT Baltazar Childers MD [facility]-33409 Level 4 Est. Patient 16:54:07 LIBRARY SERIALS ASSISTANT Baltazar Childers MD [facility]63576 Level 4 Est. Patient 15:42:12 CDT Baltazar Childers MD [facility] CPT-16568 Level 4 Est. Patient 11:29:55 CDT Baltazar Childers MD [facility]-07663 Level 4 Est. Patient 14:15:19 CDT Baltazar Childers MD [facility]-08712 Level 4 Est. Patient 12:20:13 CDT Baltazar Childers MD [facility]-64652 Level 4 Est. Patient 14:52:45 LIBRARY SERIALS ASSISTANT Baltazar Childers MD [facility]-92963 Level 4 Est. Patient 14:18:34 LIBRARY SERIALS ASSISTANT Baltazar Childers MD [facility]-15761 Level 4 Est. Patient 15:18:29 CDT Baltazar Childers MD [facility]-89892 Level 3 Est. Patient 12:45:34 CDT Baltazar Childers MD [facility] CPT-21503 Level 3 Est. Patient 10:10:11 CDT Baltazar Childers MD [facility] CPT-60138 Level 3 Est. Patient 14:07:50 CDT Baltazar Childers MD [facility] CPT-17140 Level 4 Est. Patient 12:26:10 LIBRARY SERIALS ASSISTANT Baltazar Childers MD [facility] CPT-03466 Level 4 Est. Patient 14:45:38 CDT Baltazar Childers MD [facility] CPT-15719 Level 4 New Patient 12:30:48 CDT Baltazar hinton MD [facility] Procedures Code Procedure Name Date Entry Date Standard Desc ription CPT-36561 First Vx - Ix admin via ID I M or jet injects without counseling by physician 13:08:59 CDT CPT-94338 Fluzone Quadrivalent Intramuscular Suspe nsion 0.5 ML 13:08:59 CDT CPT-00502 Venipuncture Draw Fee 12:04:12 CDT CPT-78924 Lipid - LAB USE ONLY 17:39:15 LIBRARY SERIALS ASSISTANT 9 CPT-27939 HGBA1C - LAB USE ONLY 17:39:15 LIBRARY SERIALS ASSISTANT CPT-89771 CMP - LAB USE ONLY 17:39:14 LIBRARY SERIALS ASSISTANT CPT-32029 Venipuncture Draw Fee 17:39:14 LIBRARY SERIALS ASSISTANT CPT-16322 First Vx - Ix admin via ID I M or jet injects without counseling by physician 16:55:17 LIBRARY SERIALS ASSISTANT CPT-36596 Fluzone Quadrivalent Intramuscular Suspe nsion 0.5 ML 16:55:17 LIBRARY SERIALS ASSISTANT CPT-35055 Renal Panel - LAB USE ONLY 17:39:20 CDT 201 10/31/07 CPT-06494 CBC - LAB USE ONLY 17:39:20 CDT CPT-69859 Venipuncture Draw Fee 17:39:20 CDT CPT-17067 Venipuncture Draw Fee 14:33:30 CDT CPT-58472 Renal Panel - LAB USE ONLY 14:33:30 CDT 201 10/31/07 CPT-94254 CBC - LAB USE ONLY 14:33:29 CDT CPT-12221 Venipuncture Draw Fee 14:50:21 LIBRARY SERIALS ASSISTANT CPT-76109 Immunization Single Admin 17:35:35 CDT 2014 CPT-00253 Fluzone Quadrivalent preservative free ( >=3yrs.) 17:35:35 CDT CPT-03821 Venipuncture Draw Fee 12:10:27 LIBRARY SERIALS ASSISTANT CPT-23557 Fluzone Quadrivalent Intramuscular Suspe nsion 0.5 ML 10:49:13 CDT CPT-36700 First Vx Component - Ix admi n via ID IM or jet inj without physician counseling 15:17:19 LIBRARY SERIALS ASSISTANT CPT-35815 Pneumovax 23 15:17:19 LIBRARY SERIALS ASSISTANT CPT-46148 Pneumovax 14:52:45 LIBRARY SERIALS ASSISTANT CPT-07522 Venipuncture Draw Fee 14:06:30 LIBRARY SERIALS ASSISTANT CPT-000 Give Appropriate Flu Vaccine 14:18:34 LIBRARY SERIALS ASSISTANT 2 CPT-46589 Administration single or combination vac cine inc oral 14:46:00 LIBRARY SERIALS ASSISTANT CPT-89466 Influenza split virus > age 3 14:46:00 LIBRARY SERIALS ASSISTANT CPT-OV Office Visit 19:13:16 CDT CPT-15870 Zostavax 18:41:56 CDT CPT-25600 Administration single or combination vac cine inc oral 12:56:39 CDT CPT-41564 Zoster Vaccine (Zostavax) 12:56:39 CDT 2012 CPT-14951 Venipuncture Draw Fee 10:58:57 CDT CPT-51613 Sono pelvis non OB uterus ovaries cervix 17:45:04 CDT CPT-90485 Sono retroperitoneal complete kidneys an d bladder 17:14:36 CDT CPT-OV Office Visit 14:59:38 LIBRARY SERIALS ASSISTANT CPT-J1070 Depo Testosterone 100 mg 14:50:13 CDT 03/05 CPT-49639 Abx/Therapy Injection 14:50:13 CDT CPT-53065 Administration single or combination vac cine inc oral 14:34:43 CDT CPT-28427 Influenza split virus > age 3 14:34:43 CDT CPT-J1070 Depo Testosterone 100 mg 17:37:13 CDT 01/11 CPT-87594 Abx/Therapy Injection 17:37:13 CDT CPT-56927 Venipuncture Draw Fee 16:30:13 CDT CPT-98893 Venipuncture Draw Fee 16:29:43 CDT CPT-J1070 Depo Testosterone 100 mg 14:45:38 CDT 01/11
--- OUTSIDE RECORDS SUMMARY | 2019-10-27 12:46 | XMS REPORT | Clinical Summary ---
Author Author Admin, Elba Lance Michelle [facility] Address Unknown Phone Unavailable Allergies, Adverse Reactions, Alerts Allergy Name Reaction Description Start Date Severity Status Pr ovider ASPIRIN Critical Active Baltazar bynum MD PENICILLIN yeast infection Critical Active Baltaazr 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 [employer] Benign neoplasm of colon PERIPHERAL NEUROPATHY [...] a day to coat the stomach SUCRALFATE 93410617718 Active Baltazar Childers MD Active PEN NEEDLES 31G X 6 MM MISC use 1 daily INSULIN PEN NEEDLE 10606438600 Active Bella Suarez [employer]GER Active TOUJEO SOLOSTAR 300 UNIT/ML SC SOPN 10 units SC daily INSULIN GLARGINE 17408897064 No Longer Active Martita Godinez RMA Active LANTUS SOLOSTAR 100 UNIT/ML SC SOPN 10 units SC daily INSULIN GLARGINE 30701956346 Active KENDALL Juarez Active NAPROXEN SODIUM 220 MG ORAL TABS 1 three times a day as needed 2 NAPROXEN SODIUM 11524283919 No Longer Active Baltazar Childers MD Active ATORVASTATIN CALCIUM 20 MG ORAL TABS Take 1 tab daily ATORVASTATIN CALCIUM 33356384876 Active KENDALL Juarez Active FUROSEMIDE 40 MG TABS Take one by mouth daily FUROSEMIDE 15354738735 Active KENDALL Juarez Active LISINOPRIL 20 MG TABS Take one by mouth daily at bedtime LISINOPRIL 47617170499 Active Baltazar Childers MD Active ONETOUCH ULTRA BLUE STRP Test twice a day GLUCO SE BLOOD 34360477862 No Longer Active Baltazar Childers MD Active TRUEPLUS LANCETS 33G MISC Test twice a day LANCET S 68421761637 Active KENDALL Juarez Active TRUEDRAW LANCING DEVICE MISC Test twice a day L ANCET DEVICES 67376977524 Active Baltazar Childers MD Active TRUETRACK TEST STRP Test twice a day GLUCOSE BLOO D 82769840644 Active KENDALL Juarez Active TRUETRACK BLOOD GLUCOSE W/DEVICE KIT Test twice a day BLOOD GLUCOSE MONITORING SUPPL 49070310137 Active Baltazar Childers MD Activ e HYDROCODONE-ACETAMINOPHEN 7.5-325 MG TABS Take 1 tab every 6-8 hour s PRN HYDROCODONE-ACETAMINOPHEN 29914831847 Active Baltazar Childers MD Active NORTRIPTYLINE HCL 50 MG CAPS 1 every night for neuropathy 4 NORTRIPTYLINE HCL 50784794770 Active KENDALL Juarez Acti ve GABAPENTIN 300 MG CAPS 1 three times a day GABAPE NTIN 38273567994 Active Baltazar Childers MD Active GABAPENTIN 300 MG CAPS 1 po qd x 2 days, then 1 po BID x 2 d ays, then 1 po TID GABAPENTIN 98095077083 No Longer Active Baltazar silverman MD Active TRAMADOL HCL 50 MG TABS 1 twice a day as needed for pain TRAMADOL HCL 18549215660 Active Baltazar Childers MD Active NAPROXEN 500 MG TABS 1 tablet by mouth twice daily NAPROXEN 95935264170 No Longer Active Baltazar Childers MD Active PROAIR HFA 108 (90 BASE) MCG/ACT AERS 2 puffs four times a d ay as needed ALBUTEROL SULFATE 93959953544 Active Baltazar Childers MD Active DEPO-TESTOSTERONE 200 MG/ML OIL as directed RUFINO TOSTERONE CYPIONATE 42120257949 No Longer Active Baltazar Childers MD Active LIPITOR 20 MG TABS Take one by mouth daily in evening ATORVASTATIN CALCIUM 70944314033 No Longer Active Baltazar Childers MD Activ e CRESTOR 10 MG TABS 1 by mouth every day R OSUVASTATIN CALCIUM 71315965267 No Longer Active Baltazar Childers MD Activ e PHENTERMINE HCL 37.5 MG TABS Take one by mouth daily 2 PHENTERMINE HCL 10473235173 No Longer Active Baltazar Childers MD Activ e ROBAXIN-750 750 MG TABS Take one by mouth daily ME THOCARBAMOL 27610231818 Active Baltazar Childers MD Active TIZANIDINE HCL 4 MG TABS 1 daily as needed for muscle spasm 2011 TIZANIDINE HCL 96942468313 No Longer Active Dawna Salazar RN Active [id number] 50-325-40 MG TABS 1 four time s a day as needed for heacache [id number] 39575386361 Active Baltazar Childers MD Active SUMATRIPTAN SUCCINATE 100 MG TABS 1 tablet by mouth at onset of migraine as needed SUMATRIPTAN SUCCINATE 25919724139 Active Bella STEPHEN RN Active LORATADINE 10 MG TABS Take one by mouth daily LORATADINE 92354219621 Active Baltazar Childers MD Active OMEPRAZOLE 20 MG CPDR Take one by mouth daily OMEPRAZOLE 31616023365 Active Argentina Lyons Active HYDROXYZINE HCL 25 MG TABS Take one by mouth daily HYDROXYZINE HCL 37941218857 Active Baltazar Childers MD Active GLIPIZIDE 10 MG TABS 1 tablet by mouth twice daily GLIPIZIDE 33722925145 Active KENDALL Juarez Active ALPRAZOLAM 1 MG TABS 1 tablet by mouth daily at bedtime for restles s leg ALPRAZOLAM 15071352232 Active Baltazar Childers MD Active METFORMIN HCL 1000 MG TABS Take one by mouth twice daily METFORMIN HCL 90627990168 Active Baltazar Childers MD Active TIZANIDINE HCL 4 MG TABS 1 daily as needed for muscle spasm 2011 TIZANIDINE HCL 4 MG TABS 364953 TIZANIDINE HCL Inactiv e PHENTERMINE HCL 37.5 MG TABS Take one by mouth daily 2 PHENTERMINE HCL 37.5 MG TABS 370283 PHENTERMINE HCL Inactive CRESTOR 10 MG TABS 1 by mouth every day C RESTOR 10 MG TABS 471757 ROSUVASTATIN CALCIUM Inactive LIPITOR 20 MG TABS Take one by mouth daily in evening LIPITOR 20 MG TABS 259431 ATORVASTATIN CALCIUM Inactive DEPO-TESTOSTERONE 200 MG/ML OIL as directed 8 DEPO-TESTOSTERONE 200 MG/ML OIL 881241 TESTOSTERONE CYPIONATE Inactive NAPROXEN 500 MG TABS 1 tablet by mouth twice daily 201 07/27/22 NAPROXEN 500 MG TABS 526832 NAPROXEN Inactive GABAPENTIN 300 MG CAPS 1 po qd x 2 days, then 1 po BID x 2 d ays, then 1 po TID GABAPENTIN 300 MG CAPS 032866 GABAPENTIN Inact amie ONETOUCH ULTRA BLUE STRP Test twice a day ONETOUCH ULTRA BLUE STRP GLUCOSE BLOOD Inactive NAPROXEN SODIUM 220 MG ORAL TABS 1 three times a day as needed 2 NAPROXEN SODIUM 220 MG ORAL TABS 158270 NAPROXEN SODIUM Inactive TOUJEO SOLOSTAR 300 UNIT/ML [...] Fluarix, Agriflu(>= 18 yo)) Fluzone (>3 yrs.) [[id number]] Influenza, seasonal, inject able Seasonal influenza vaccine, injectable, containing preservative, for > 3 years old (Afluria, FluLaval, Fluzone, Fluvirin, Fluarix, Agriflu(>= 18 yo)) Fluzone (>3 yrs.) [[id number]] Influenza, seasonal, inject able Vital Signs Date [...] C - Chemistry sodium, serum 139 mmol/L 148-215 0600/07/07 potassium, serum 4.5 mmol/L 3.5-5.2 chloride, serum [...] 7.9 % 4.3-6.0 sodium, serum 139 mmol/L 776-445 1403/02/04 potassium, serum 5.4 mmol/L 3.5-5.2 chloride, serum [...] 142-424 Lab Report: Renal Panel - Chemistry creatinine, serum 1.98 mg/dL 0.55-1.30 carbon dioxide, venous blood 34.1 mmol/L 21.0-32 .0 chloride, serum 101 mmol/L 98-107 potassium, serum 4.9 mmol/L 3.5-5.2 sodium, serum 141 mmol/L 819-928 5514/08/08 blood glucose 193 mg/dL 65-110 urea nitrogen, blood 30 mg/dL 7-18 calcium, serum 9.8 mg/dL 8.5-10.1 Office Visit: Medication refill - Basic LDL target level 70 mg/dL Office Visit: Medication refill - Chemis try HDL cholesterol, serum, target level 40 mg/dL triglyceride, target level 150 mg/dL cholesterol, target level 200 mg/dL Encounters Code Encounter Date Provider Facility CPT-44400 Level 4 Est. Patient 11:34:17 CDT Baltazar Childers MD [facility] [place] CPT-79112 Level 3 Est. Patient 16:40:40 CDT Baltazar Childers MD [facility] [place] CPT-24149 Level 4 Est. Patient 10:41:24 CDT Baltazar Childers MD [facility] [place] CPT-23909 Level 4 Est. Patient 16:01:48 CDT Baltazar Childers MD [facility] [place] CPT-40609 Level 4 Est. Patient 16:54:07 [employer]FORMATICA DEVELOPER Baltazar Childers MD [facility] [place] CPT-01969 Level 4 Est. Patient 15:42:12 CDT Baltazar Childers MD [facility] [place] [facility] CPT-13117 Level 4 Est. Patient 11:29:55 CDT Baltazar Childers MD [facility] CPT-79302 Level 4 Est. Patient 14:15:19 CDT Baltazar Childers MD [facility] CPT-53199 Level 4 Est. Patient 12:20:13 CDT Baltazar Childers MD [facility] CPT-52599 Level 4 Est. Patient 14:52:45 [employer]FORMATICA DEVELOPER Baltazar Childers MD [facility] CPT-69390 Level 4 Est. Patient 14:18:34 INFORMATICA DEVELOPER Baltazar Childers MD [facility] CPT-81064 Level 4 Est. Patient 15:18:29 CDT Baltazar Childers MD [facility] CPT-30454 Level 3 Est. Patient 12:45:34 CDT Baltazar Childers MD [facility] CPT-17051 Level 3 Est. Patient 10:10:11 CDT Baltazar Childers MD [facility] CPT-83272 Level 3 Est. Patient 14:07:50 CDT Baltazar Childers MD [facility] CPT-11220 Level 4 Est. Patient 12:26:10 [employer]FORMATICA DEVELOPER Baltazar Childers MD [facility] CPT-72851 Level 4 Est. Patient 14:45:38 CDT Baltazar Childers MD [facility] CPT-65535 Level 4 New Patient 12:30:48 CDT Baltazar hinton MD [facility] Procedures Code Procedure Name Date Entry Date Standard Desc ription CPT-76923 Renal Panel - LAB USE ONLY 17:39:20 CDT 201 10/31/07 CPT-54363 CBC - LAB USE ONLY 17:39:20 CDT CPT-09988 Venipuncture Draw Fee 17:39:20 CDT CPT-92889 Venipuncture Draw Fee 14:33:30 CDT CPT-91198 Renal Panel - LAB USE ONLY 14:33:30 CDT 201 10/31/07 CPT-54727 CBC - LAB USE ONLY 14:33:29 CDT CPT-23523 Venipuncture Draw Fee 14:50:21 [employer]FORMATICA DEVELOPER CPT-27664 Immunization Single Admin 17:35:35 CDT 2014 CPT-41074 Fluzone Quadrivalent preservative free ( >=3yrs.) 17:35:35 CDT CPT-22525 Venipuncture Draw Fee 12:10:27 INFORMATICA DEVELOPER CPT-28870 Fluzone Quadrivalent Intramuscular Suspe nsion 0.5 ML 10:49:13 CDT CPT-26149 First Vx Component - Ix admi n via ID IM or jet inj without physician counseling 15:17:19 INFORMATICA DEVELOPER CPT-62214 Pneumovax 23 15:17:19 INFORMATICA DEVELOPER CPT-53320 Pneumovax 14:52:45 INFORMATICA DEVELOPER CPT-38287 Venipuncture Draw Fee 14:06:30 INFORMATICA DEVELOPER CPT-000 Give Appropriate Flu Vaccine 14:18:34 INFORMATICA DEVELOPER 2 CPT-35721 Administration single or combination vac cine inc oral 14:46:00 INFORMATICA DEVELOPER CPT-97138 Influenza split virus > age 3 14:46:00 INFORMATICA DEVELOPER CPT-OV Office Visit 19:13:16 CDT CPT-56369 Zostavax 18:41:56 CDT CPT-78951 Administration single or combination vac cine inc oral 12:56:39 CDT CPT-27968 Zoster Vaccine (Zostavax) 12:56:39 CDT 2012 CPT-76238 Venipuncture Draw Fee 10:58:57 CDT CPT-84985 Sono pelvis non OB uterus ovaries cervix 17:45:04 CDT CPT-85082 Sono retroperitoneal complete kidneys an d bladder 17:14:36 CDT CPT-OV Office Visit 14:59:38 INFORMATICA DEVELOPER CPT-J1070 Depo Testosterone 100 mg 14:50:13 CDT 03/05 CPT-96444 Abx/Therapy Injection 14:50:13 CDT CPT-56514 Administration single or combination vac cine inc oral 14:34:43 CDT CPT-32548 Influenza split virus > age 3 14:34:43 CDT CPT-J1070 Depo Testosterone 100 mg 17:37:13 CDT 01/11 CPT-76302 Abx/Therapy Injection 17:37:13 CDT CPT-80897 Venipuncture Draw Fee 16:30:13 CDT CPT-10506 Venipuncture Draw Fee 16:29:43 CDT CPT-J1070 Depo Testosterone 100 mg 14:45:38 CDT 01/11
--- OUTSIDE RECORDS SUMMARY | 2019-10-27 12:47 | XMS REPORT | Clinical Summary ---
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 Benign neoplasm of colon PERIPHERAL NEUROPATHY [...] ronary atherosclerosis of unspecified type of vessel, [place] or graft OTH NONSPC ABN FINDNG RAD&OTH [...] stage III 585.3 Active 201 10/25/03 Elba Plamichael RMA Chronic kidney disease, Stage III (moder [...] a day for neuropathy 2 NORTRIPTYLINE HCL 02522348452 Active Baltazar Childers MD Acti ve ASPIRIN 81 MG TBEC Take one (1) tablet by mouth daily ASPIRIN 89981610240 Active Baltazar Childers MD Active GABAPENTIN 300 MG ORAL CAPSULE 1 three times a day 201 12/03/26 GABAPENTIN 28800326743 No Longer Active Baltazar Childers MD Activ e LISINOPRIL 20 MG ORAL TABLET 1 tablet by mouth daily at night 2016 LISINOPRIL 17992286322 Active Baltazar Childers MD Active ZITHROMAX Z-ISAIAS 250 MG ORAL TABLET Take two tablets to day and then 1 tablet daily for 4 days AZITHROMYCIN 35204428055 No Longer A ctive Baltazar Childers MD Active LANTUS SOLOSTAR 100 UNIT/ML SUBCUTANEOUS SOLUTION PEN- INJECTOR 30 units SC daily INSULIN GLARGINE 28088665401 Active Baltazar Childers MD Active AMLODIPINE BESYLATE 5 MG ORAL TABLET 1 tab daily for HTN AMLODIPINE BESYLATE 43710699393 Active Baltazar Childers MD Active SYNTHROID 100 MCG ORAL TABLET 1 tablet by mouth daily LEVOTHYROXINE SODIUM 99714221112 Active Baltazar Childers MD Active GLIPIZIDE 10 MG ORAL TABLET take 2 tablets twice daily GLIPIZIDE 80259835638 Active Baltazar Childers MD Active SUCRALFATE 1 GM ORAL TABLET 1 four times a day to coat the stoma ch SUCRALFATE 74917055965 No Longer Active Baltazar Childers MD Active PEN NEEDLES 31G X 6 MM use 1 daily INSULIN PEN NE EDLE 25828617822 Active KENDALL Juarez Active TOUJEO SOLOSTAR 300 UNIT/ML SUBCUTANEOUS SOLUTION PEN- INJECTOR 10 units SC daily INSULIN GLARGINE 77250340239 No Longer Active Rola abigail Godinez RMA Active NAPROXEN SODIUM 220 MG ORAL TABLET 1 three times a day as needed NAPROXEN SODIUM 12173075228 No Longer Active Baltazar Childers MD Active ATORVASTATIN CALCIUM 20 MG ORAL TABLET Take 1 tab daily ATORVASTATIN CALCIUM 26259365357 Active Baltazar Childers MD A ctive FUROSEMIDE 40 MG ORAL TABLET Take one by mouth daily FUROSEMIDE 33280410572 Active Baltazar Childers MD Active LISINOPRIL 20 MG ORAL TABLET Take one by mouth daily at bedtime LISINOPRIL 83222576846 No Longer Active Baltazar Childers MD Active ONETOUCH ULTRA BLUE IN VITRO STRIP Test twice a day 07/11/11 GLUCOSE BLOOD 69703849806 No Longer Active Baltazar Childers MD Acti ve TRUEPLUS LANCETS 33G Test twice a day LANCETS 3843556 8396 Active EKNDALL Juarez Active TRUEDRAW LANCING DEVICE Test twice a day LANCET DEVICES 68990769821 Active Baltazar Childers MD Active TRUETRACK TEST IN VITRO STRIP Test twice a day GLUCOSE BLOOD 89031353550 Active Baltazar Childers MD Active TRUETRACK BLOOD GLUCOSE w/Device KIT Test twice a day BLOOD GLUCOSE MONITORING SUPPL 07764184931 Active Baltazar Childers MD Activ e HYDROCODONE-ACETAMINOPHEN 7.5-325 MG ORAL TABLET Take 1 tab every 6-8 hours PRN HYDROCODONE-ACETAMINOPHEN 89053473800 Active Baltazar Nickerson MD Active GABAPENTIN 300 MG ORAL CAPSULE 1 po qd x 2 days, then 1 po BID x 2 days, then 1 po TID GABAPENTIN 89391561652 No Longer Active Baltazar Childers MD Active TRAMADOL HCL 50 MG ORAL TABLET 1 twice a day as needed for pain 201 07/27/28 TRAMADOL HCL 34874773306 Active Baltazar Childers MD Active NAPROXEN 500 MG ORAL TABLET 1 tablet by mouth twice daily NAPROXEN 20532424465 No Longer Active Baltazar Childers MD Active PROAIR HFA 108 (90 Base) MCG/ACT INHALATION AEROSOL SO LUTION 2 puffs four times a day as needed ALBUTEROL SULFATE 35964687920 Active R gilberto Childers MD Active DEPO-TESTOSTERONE 200 MG/ML INTRAMUSCULAR SOLUTION as directed TESTOSTERONE CYPIONATE 26258678122 No Longer Active Baltazar Childers MD Active LIPITOR 20 MG ORAL TABLET Take one by mouth daily in evening ATORVASTATIN CALCIUM 71090635233 No Longer Active Baltazar Childers MD Active CRESTOR 10 MG ORAL TABLET 1 by mouth every day ROSUVASTATIN CALCIUM 48534290268 No Longer Active Baltazar Childers MD Active PHENTERMINE HCL 37.5 MG ORAL TABLET Take one by mouth daily PHENTERMINE HCL 93247881069 No Longer Active Baltazar Childers MD Ac tive ROBAXIN-750 750 MG ORAL TABLET Take one by mouth daily METHOCARBAMOL 79554284570 Active KENDALL Juarez Active TIZANIDINE HCL 4 MG ORAL TABLET 1 daily as needed for muscle spa sm TIZANIDINE HCL 85126650097 No Longer Active Dawna Salazar RN Active [id number] 50-325-40 MG ORAL TABLET 1 fo ur times a day as needed for heacache [id number] 81271720272 Active Baltazar Childers MD Active SUMATRIPTAN SUCCINATE 100 MG ORAL TABLET 1 tablet by m outh at onset of migraine as needed SUMATRIPTAN SUCCINATE 85225076434 Active KENDALL Restrepo Active LORATADINE 10 MG ORAL TABLET Take one by mouth daily LORATADINE 71654099445 Active KENDALL Juarez Active OMEPRAZOLE 20 MG ORAL CAPSULE DELAYED RELEASE Take one by mouth jostin ly OMEPRAZOLE 96546638841 Active Baltazar Childers MD Active HYDROXYZINE HCL 25 MG ORAL TABLET Take one by mouth daily HYDROXYZINE HCL 72167685391 Active Baltazar Childers MD Active ALPRAZOLAM 1 MG ORAL TABLET 1 tablet by mouth daily at bedti me for restless leg ALPRAZOLAM 62255878708 Active Baltazar Childers MD Active METFORMIN HCL 1000 MG ORAL TABLET Take one by mouth twice daily METFORMIN HCL 59087420479 Active Baltazar Childers MD Active TIZANIDINE HCL 4 MG ORAL TABLET 1 daily as needed for muscle spa sm TIZANIDINE HCL 4 MG ORAL TABLET 682533 TIZANIDINE HCL Inactive PHENTERMINE HCL 37.5 MG ORAL TABLET Take one by mouth daily PHENTERMINE HCL 37.5 MG ORAL TABLET 916239 PHENTERMINE HCL Inac tive CRESTOR 10 MG ORAL TABLET 1 by mouth every day CRESTOR 10 MG ORAL TABLET 655820 ROSUVASTATIN CALCIUM Inactive LIPITOR 20 MG ORAL TABLET Take one by mouth daily in evening LIPITOR 20 MG ORAL TABLET 752034 ATORVASTATIN CALCIUM Inactive DEPO-TESTOSTERONE 200 MG/ML INTRAMUSCULAR SOLUTION as directed DEPO-TESTOSTERONE 200 MG/ML INTRAMUSCULAR SOLUTION 836597 RUFINO TOSTERONE CYPIONATE Inactive NAPROXEN 500 MG ORAL TABLET 1 tablet by mouth twice daily NAPROXEN 500 MG ORAL TABLET 516428 NAPROXEN Inactive GABAPENTIN 300 MG ORAL CAPSULE 1 po qd x 2 days, then 1 po BID x 2 days, then 1 po TID GABAPENTIN 300 MG ORAL CAPSULE 013208 GABAP ENTIN Inactive ONETOUCH ULTRA BLUE IN VITRO STRIP Test twice a day 07/11/11 ONETOUCH ULTRA BLUE IN VITRO STRIP GLUCOSE BLOOD Inact amie NAPROXEN SODIUM 220 MG ORAL TABLET 1 three times a day as needed NAPROXEN SODIUM 220 MG ORAL TABLET 909328 NAPROXEN SODI UM Inactive TOUJEO SOLOSTAR 300 UNIT/ML SUBCUTANEOUS SOLUTION PEN- INJECTOR 10 units SC daily TOUJEO SOLOSTAR 300 UNIT/ML SUBCUTANEOUS SOLUTION PEN-INJECTOR INSULIN GLARGINE Inactive SUCRALFATE 1 GM ORAL TABLET 1 four times a day to coat the stoma ch SUCRALFATE 1 GM ORAL TABLET 554198 SUCRALFATE Inac tive GABAPENTIN 300 MG ORAL CAPSULE 1 three times a day 201 12/03/26 GABAPENTIN 300 MG ORAL CAPSULE 401030 GABAPENTIN Inactive ZITHROMAX Z-ISAIAS 250 MG ORAL TABLET Take two tablets to day and then 1 tablet daily for 4 days ZITHROMAX Z-ISAIAS 250 MG ORAL TAB LET 696775 AZITHROMYCIN Inactive Immunizations Vaccine Administration Date Value Standard Floyd cription pneumococcal immunization administered Pneumovax 23 [CVX33] pneumococcal polysaccharide vaccine, 23 valent Seasonal influenza vaccine, injectable, containing preservative, for > 3 years old (Afluria, FluLaval, Fluzone, Fluvirin, Fluarix, Agriflu(>= 18 yo)) Fluzone (>3 yrs.) [EOB055] Influenza, seasonal, inject able Seasonal influenza vaccine, injectable, containing preservative, for > 3 years old (Afluria, FluLaval, Fluzone, Fluvirin, Fluarix, Agriflu(>= 18 yo)) Fluzone (>3 yrs.) [[id number]] Influenza, seasonal, inject able Vital Signs Date [...] - Chem istry sodium, serum 139 mmol/L 042-373 7668/10/03 potassium, serum 4.7 mmol/L 3.5-5.2 chloride, serum 98 mmol/L 98-107 carbon dioxide, venous blood 28.7 mmol/L 21.0-32 .0 blood glucose 218 mg/dL 65-110 calcium, serum 9.8 mg/dL 8.5-10.1 urea nitrogen, blood 19 mg/dL 7-18 creatinine, serum 1.68 mg/dL 0.60-1.30 Lab Report: CBC, Renal Panel - Chemistry sodium, serum 142 mmol/L 198-444 2037/08/11 potassium, serum 4.8 mmol/L 3.5-5.2 chloride, serum [...] (L) - Chemistry cholesterol, serum 209 mg/dL 754-236 0398/12/27 triglyceride, serum, fasting 329 mg/dL 30-200 HDL cholesterol, serum 56 mg/dL 32-60 LDL cholesterol, serum 87 mg/dL 0-130 TSH 3.60 m[iU]/mL 0.36-3.74 Office Visit: Meds Check - Toxicology drug screen, urine, qualitative negative Encounters Code Encounter Date Provider Facility CPT-99718 33685-Utx Vst-Est Level V 14:26:27 CDT Aneudy Childers MD [facility] CPT-18053 Level 4 Est. Patient 17:05:37 CDT Baltazar Childers MD [facility] CPT-39550 Level 4 Est. Patient 16:21:19 DOCK ATTENDANT Baltazar Childers MD [facility] CPT-57978 Level 4 Est. Patient 12:25:11 CDT Baltazar Childers MD [facility] CPT-22975 Level 4 Est. Patient 14:22:31 CDT Baltazar Childers MD [facility]69908 Level 4 Est. Patient 15:44:38 CDT Shonna Elena CASTELLANOS [facility] CPT-55044 Level 4 Est. Patient 11:34:17 CDT Baltazar Childers MD [facility]56872 Level 3 Est. Patient 16:40:40 CDT Baltazar Childers MD [facility]-72488 Level 4 Est. Patient 10:41:24 CDT Baltazar Childers MD [facility]-20691 Level 4 Est. Patient 16:01:48 CDT Baltazar Childers MD [facility]57770 Level 4 Est. Patient 16:54:07 DOCK ATTENDANT Baltazar Childers MD [facility]-44929 Level 4 Est. Patient 15:42:12 CDT Baltazar Childers MD [facility] CPT-98331 Level 4 Est. Patient 11:29:55 CDT Baltazar Childers MD [facility] CPT-14653 Level 4 Est. Patient 14:15:19 CDT Baltazar Childers MD [facility] CPT-69767 Level 4 Est. Patient 12:20:13 CDT Baltazar Childers MD [facility] CPT-54456 Level 4 Est. Patient 14:52:45 DOCK ATTENDANT Baltazar Childers MD [facility] CPT-67748 Level 4 Est. Patient 14:18:34 DOCK ATTENDANT Baltazar Childers MD [facility] CPT-02746 Level 4 Est. Patient 15:18:29 CDT Baltazar Childers MD [facility] CPT-12436 Level 3 Est. Patient 12:45:34 CDT Baltazar Childers MD [facility] CPT-50708 Level 3 Est. Patient 10:10:11 CDT Baltazar Childers MD [facility] CPT-34344 Level 3 Est. Patient 14:07:50 CDT Baltazar Childers MD [facility] CPT-03406 Level 4 Est. Patient 12:26:10 DOCK ATTENDANT Baltazar Childers MD [facility] CPT-08044 Level 4 Est. Patient 14:45:38 CDT Baltazar Childers MD [facility] CPT-06497 Level 4 New Patient 12:30:48 CDT Baltazar hinton MD [facility] Procedures Code Procedure Name Date Entry Date Standard Desc ription CPT-000 Give Appropriate Flu Vaccine 12:25:14 CDT 2 CPT-13055 First Vx - Ix admin via ID I M or jet injects without counseling by physician 13:08:59 CDT CPT-04234 Fluzone Quadrivalent Intramuscular Suspe nsion 0.5 ML 13:08:59 CDT CPT-89604 Venipuncture Draw Fee 12:04:12 CDT CPT-91697 Lipid - LAB USE ONLY 17:39:15 DOCK ATTENDANT 9 CPT-26096 HGBA1C - LAB USE ONLY 17:39:15 DOCK ATTENDANT CPT-22605 CMP - LAB USE ONLY 17:39:14 DOCK ATTENDANT CPT-31863 Venipuncture Draw Fee 17:39:14 DOCK ATTENDANT CPT-11825 First Vx - Ix admin via ID I M or jet injects without counseling by physician 16:55:17 DOCK ATTENDANT CPT-04766 Fluzone Quadrivalent Intramuscular Suspe nsion 0.5 ML 16:55:17 DOCK ATTENDANT CPT-95727 Renal Panel - LAB USE ONLY 17:39:20 CDT 201 10/31/07 CPT-05985 CBC - LAB USE ONLY 17:39:20 CDT CPT-28731 Venipuncture Draw Fee 17:39:20 CDT CPT-39897 Venipuncture Draw Fee 14:33:30 CDT CPT-77901 Renal Panel - LAB USE ONLY 14:33:30 CDT 201 10/31/07 CPT-58756 CBC - LAB USE ONLY 14:33:29 CDT CPT-11302 Venipuncture Draw Fee 14:50:21 DOCK ATTENDANT CPT-61334 Immunization Single Admin 17:35:35 CDT 2014 CPT-20981 Fluzone Quadrivalent preservative free ( >=3yrs.) 17:35:35 CDT CPT-71372 Venipuncture Draw Fee 12:10:27 DOCK ATTENDANT CPT-89762 Fluzone Quadrivalent Intramuscular Suspe nsion 0.5 ML 10:49:13 CDT CPT-45661 First Vx Component - Ix admi n via ID IM or jet inj without physician counseling 15:17:19 DOCK ATTENDANT CPT-60530 Pneumovax 23 15:17:19 DOCK ATTENDANT CPT-41768 Pneumovax 14:52:45 DOCK ATTENDANT CPT-98037 Venipuncture Draw Fee 14:06:30 DOCK ATTENDANT CPT-000 Give Appropriate Flu Vaccine 14:18:34 DOCK ATTENDANT 2 CPT-48120 Administration single or combination vac cine inc oral 14:46:00 DOCK ATTENDANT CPT-41791 Influenza split virus > age 3 14:46:00 DOCK ATTENDANT CPT-OV Office Visit 19:13:16 CDT CPT-58202 Zostavax 18:41:56 CDT CPT-01083 Administration single or combination vac cine inc oral 12:56:39 CDT CPT-95828 Zoster Vaccine (Zostavax) 12:56:39 CDT 2012 CPT-01704 Venipuncture Draw Fee 10:58:57 CDT CPT-11856 Sono pelvis non OB uterus ovaries cervix 17:45:04 CDT CPT-78946 Sono retroperitoneal complete kidneys an d bladder 17:14:36 CDT CPT-OV Office Visit 14:59:38 DOCK ATTENDANT CPT-J1070 Depo Testosterone 100 mg 14:50:13 CDT 03/05 CPT-53165 Abx/Therapy Injection 14:50:13 CDT CPT-77942 Administration single or combination vac cine inc oral 14:34:43 CDT CPT-37487 Influenza split virus > age 3 14:34:43 CDT CPT-J1070 Depo Testosterone 100 mg 17:37:13 CDT 01/11 CPT-49510 Abx/Therapy Injection 17:37:13 CDT CPT-61854 Venipuncture Draw Fee 16:30:13 CDT CPT-19330 Venipuncture Draw Fee 16:29:43 CDT CPT-J1070 Depo Testosterone 100 mg 14:45:38 CDT 01/11
--- OUTSIDE RECORDS SUMMARY | 2019-10-27 12:47 | XMS REPORT | Clinical Summary ---
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 Benign neoplasm of colon PERIPHERAL [...] ronary atherosclerosis of unspecified type of vessel, [place] or graft OTH NONSPC ABN FINDNG RAD&OTH [...] a day for neuropathy 2 NORTRIPTYLINE HCL 35130131591 Active Baltazar Childers MD Acti ve ASPIRIN 81 MG TBEC Take one (1) tablet by mouth daily ASPIRIN 13194443188 Active Baltazar Childers MD Active GABAPENTIN 300 MG ORAL CAPSULE 1 three times a day 201 12/03/26 GABAPENTIN 79001257358 No Longer Active Baltazar Childers MD Activ e LISINOPRIL 20 MG ORAL TABLET 1 tablet by mouth daily at night 2016 LISINOPRIL 18374716579 Active Baltazar Childers MD Active ZITHROMAX Z-ISAIAS 250 MG ORAL TABLET Take two tablets to day and then 1 tablet daily for 4 days AZITHROMYCIN 09757313081 No Longer A ctive Baltazar Childers MD Active LANTUS SOLOSTAR 100 UNIT/ML SUBCUTANEOUS SOLUTION PEN- INJECTOR 30 units SC daily INSULIN GLARGINE 09410467124 Active Baltazar Childers MD Active AMLODIPINE BESYLATE 5 MG ORAL TABLET 1 tab daily for HTN AMLODIPINE BESYLATE 86556743422 Active Baltazar Childers MD Active SYNTHROID 100 MCG ORAL TABLET 1 tablet by mouth daily LEVOTHYROXINE SODIUM 72379489214 Active Baltazar Childers MD Active GLIPIZIDE 10 MG ORAL TABLET take 2 tablets twice daily GLIPIZIDE 64412614359 Active Baltazar Childers MD Active SUCRALFATE 1 GM ORAL TABLET 1 four times a day to coat the stoma ch SUCRALFATE 83042851758 No Longer Active Baltazar Childers MD Active PEN NEEDLES 31G X 6 MM use 1 daily INSULIN PEN NE EDLE 71684780675 Active KENDALL Juarez Active TOUJEO SOLOSTAR 300 UNIT/ML SUBCUTANEOUS SOLUTION PEN- INJECTOR 10 units SC daily INSULIN GLARGINE 33604678372 No Longer Active Rola abigail Godinez RMA Active NAPROXEN SODIUM 220 MG ORAL TABLET 1 three times a day as needed NAPROXEN SODIUM 40809688498 No Longer Active Baltazar Childers MD Active ATORVASTATIN CALCIUM 20 MG ORAL TABLET Take 1 tab daily ATORVASTATIN CALCIUM 86684653150 Active Baltazar Childers MD A ctive FUROSEMIDE 40 MG ORAL TABLET Take one by mouth daily FUROSEMIDE 93412051388 Active Baltazar Childers MD Active LISINOPRIL 20 MG ORAL TABLET Take one by mouth daily at bedtime LISINOPRIL 88062492546 No Longer Active Baltazar Childers MD Active ONETOUCH ULTRA BLUE IN VITRO STRIP Test twice a day 07/11/11 GLUCOSE BLOOD 02517138098 No Longer Active Baltazar Childers MD Acti ve TRUEPLUS LANCETS 33G Test twice a day LANCETS 7062112 3112 Active KENDALL Juarez Active TRUEDRAW LANCING DEVICE Test twice a day LANCET DEVICES 09697178303 Active Baltazar Childers MD Active TRUETRACK TEST IN VITRO STRIP Test twice a day GLUCOSE BLOOD 84031242141 Active Baltazar Childers MD Active TRUETRACK BLOOD GLUCOSE w/Device KIT Test twice a day BLOOD GLUCOSE MONITORING SUPPL 41499051514 Active Baltazar Childers MD Activ e HYDROCODONE-ACETAMINOPHEN 7.5-325 MG ORAL TABLET Take 1 tab every 6-8 hours PRN HYDROCODONE-ACETAMINOPHEN 43857129021 Active Baltazar Nickerson MD Active GABAPENTIN 300 MG ORAL CAPSULE 1 po qd x 2 days, then 1 po BID x 2 days, then 1 po TID GABAPENTIN 50469345268 No Longer Active Baltazar Childers MD Active TRAMADOL HCL 50 MG ORAL TABLET 1 twice a day as needed for pain 201 07/27/28 TRAMADOL HCL 53457690567 Active Baltazar Childers MD Active NAPROXEN 500 MG ORAL TABLET 1 tablet by mouth twice daily NAPROXEN 87514128676 No Longer Active Baltazar Childers MD Active PROAIR HFA 108 (90 Base) MCG/ACT INHALATION AEROSOL SO LUTION 2 puffs four times a day as needed ALBUTEROL SULFATE 68439643086 Active R gilberto Childers MD Active DEPO-TESTOSTERONE 200 MG/ML INTRAMUSCULAR SOLUTION as directed TESTOSTERONE CYPIONATE 61895668291 No Longer Active Baltazar Childers MD Active LIPITOR 20 MG ORAL TABLET Take one by mouth daily in evening ATORVASTATIN CALCIUM 16165556549 No Longer Active Baltazar Childers MD Active CRESTOR 10 MG ORAL TABLET 1 by mouth every day ROSUVASTATIN CALCIUM 30865951929 No Longer Active Baltazar Childers MD Active PHENTERMINE HCL 37.5 MG ORAL TABLET Take one by mouth daily PHENTERMINE HCL 43758447287 No Longer Active Baltazar Childers MD Ac tive ROBAXIN-750 750 MG ORAL TABLET Take one by mouth daily METHOCARBAMOL 01135431208 Active KENDALL Juarez Active TIZANIDINE HCL 4 MG ORAL TABLET 1 daily as needed for muscle spa sm TIZANIDINE HCL 19753945913 No Longer Active Dawna Salazar RN Active [id number]-[id number] 50-325-40 MG ORAL TABLET 1 fo ur times a day as needed for heacache [id number] 24380935892 Active Baltazar Childers MD Active SUMATRIPTAN SUCCINATE 100 MG ORAL TABLET 1 tablet by m outh at onset of migraine as needed SUMATRIPTAN SUCCINATE 85342347635 Active KENDALL Restrepo Active LORATADINE 10 MG ORAL TABLET Take one by mouth daily LORATADINE 28674250621 Active KENDALL Juarez Active OMEPRAZOLE 20 MG ORAL CAPSULE DELAYED RELEASE Take one by mouth jostin ly OMEPRAZOLE 22903106272 Active Baltazar Childers MD Active HYDROXYZINE HCL 25 MG ORAL TABLET Take one by mouth daily HYDROXYZINE HCL 29950023581 Active Baltazar Childers MD Active ALPRAZOLAM 1 MG ORAL TABLET 1 tablet by mouth daily at bedti me for restless leg ALPRAZOLAM 17860527725 Active Balatzar Childers MD Active METFORMIN HCL 1000 MG ORAL TABLET Take one by mouth twice daily METFORMIN HCL 15821678754 Active Baltazar Childers MD Active TIZANIDINE HCL 4 MG ORAL TABLET 1 daily as needed for muscle spa sm TIZANIDINE HCL 4 MG ORAL TABLET 428814 TIZANIDINE HCL Inactive PHENTERMINE HCL 37.5 MG ORAL TABLET Take one by mouth daily PHENTERMINE HCL 37.5 MG ORAL TABLET 308330 PHENTERMINE HCL Inac tive CRESTOR 10 MG ORAL TABLET 1 by mouth every day CRESTOR 10 MG ORAL TABLET 862221 ROSUVASTATIN CALCIUM Inactive LIPITOR 20 MG ORAL TABLET Take one by mouth daily in evening LIPITOR 20 MG ORAL TABLET 952476 ATORVASTATIN CALCIUM Inactive DEPO-TESTOSTERONE 200 MG/ML INTRAMUSCULAR SOLUTION as directed DEPO-TESTOSTERONE 200 MG/ML INTRAMUSCULAR SOLUTION 880908 RUFINO TOSTERONE CYPIONATE Inactive NAPROXEN 500 MG ORAL TABLET 1 tablet by mouth twice daily NAPROXEN 500 MG ORAL TABLET 109425 NAPROXEN Inactive GABAPENTIN 300 MG ORAL CAPSULE 1 po qd x 2 days, then 1 po BID x 2 days, then 1 po TID GABAPENTIN 300 MG ORAL CAPSULE 652803 GABAP ENTIN Inactive ONETOUCH ULTRA BLUE IN VITRO STRIP Test twice a day 07/11/11 ONETOUCH ULTRA BLUE IN VITRO STRIP GLUCOSE BLOOD Inact amie NAPROXEN SODIUM 220 MG ORAL TABLET 1 three times a day as needed NAPROXEN SODIUM 220 MG ORAL TABLET 959390 NAPROXEN SODI UM Inactive TOUJEO SOLOSTAR 300 UNIT/ML SUBCUTANEOUS SOLUTION PEN- INJECTOR 10 units SC daily TOUJEO SOLOSTAR 300 UNIT/ML SUBCUTANEOUS SOLUTION PEN-INJECTOR INSULIN GLARGINE Inactive SUCRALFATE 1 GM ORAL TABLET 1 four times a day to coat the stoma ch SUCRALFATE 1 GM ORAL TABLET 392738 SUCRALFATE Inac tive GABAPENTIN 300 MG ORAL CAPSULE 1 three times a day 201 12/03/26 GABAPENTIN 300 MG ORAL CAPSULE 347106 GABAPENTIN Inactive ZITHROMAX Z-ISAIAS 250 MG ORAL TABLET Take two tablets to day and then 1 tablet daily for 4 days ZITHROMAX Z-ISAIAS 250 MG ORAL TAB LET 874232 AZITHROMYCIN Inactive Immunizations Vaccine Administration Date Value Standard Floyd cription pneumococcal immunization administered Pneumovax 23 [CVX33] pneumococcal polysaccharide vaccine, 23 valent Seasonal influenza vaccine, injectable, containing preservative, for > 3 years old (Afluria, FluLaval, Fluzone, Fluvirin, Fluarix, Agriflu(>= 18 yo)) Fluzone (>3 yrs.) [NRC263] Influenza, seasonal, inject able Seasonal influenza vaccine, injectable, containing preservative, for > 3 years old (Afluria, FluLaval, Fluzone, Fluvirin, Fluarix, Agriflu(>= 18 yo)) Fluzone (>3 yrs.) [FFH993] Influenza, seasonal, inject able Vital Signs Date [...] - Chem istry sodium, serum 139 mmol/L 934-293 1514/10/03 potassium, serum 4.7 mmol/L 3.5-5.2 chloride, serum 98 mmol/L 98-107 carbon dioxide, venous blood 28.7 mmol/L 21.0-32 .0 blood glucose 218 mg/dL 65-110 calcium, serum 9.8 mg/dL 8.5-10.1 urea nitrogen, blood 19 mg/dL 7-18 creatinine, serum 1.68 mg/dL 0.60-1.30 sodium, serum 139 mmol/L 371-674 7248/06/26 potassium, serum 4.8 mmol/L 3.5-5.2 chloride, serum 102 mmol/L 98-107 carbon dioxide, venous blood 29.1 mmol/L 21.0-32 .0 blood glucose 179 mg/dL 65-95 calcium, serum 9.7 mg/dL 8.5-10.1 urea nitrogen, blood 31 mg/dL 7-18 creatinine, serum 1.97 mg/dL 0.60-1.30 Lab Report: CBC, Renal Panel - Chemistry sodium, serum 142 mmol/L 662-662 8049/08/11 potassium, serum 4.8 mmol/L 3.5-5.2 chloride, serum [...] (L) - Chemistry cholesterol, serum 209 mg/dL 250-037 8740/12/27 triglyceride, serum, fasting 329 mg/dL 30-200 HDL cholesterol, serum 56 mg/dL 32-60 LDL cholesterol, serum 87 mg/dL 0-130 TSH 3.60 m[iU]/mL 0.36-3.74 Office Visit: Meds Check - Toxicology drug screen, urine, qualitative negative Encounters Code Encounter Date Provider Facility [id number] Vst-Est Level V 14:26:27 CDT Aneudy Childers MD [facility] CPT-68790 Level 4 Est. Patient 17:05:37 CDT Baltazar Childers MD [facility] CPT-73811 Level 4 Est. Patient 16:21:19 RN PEDIATRIC Baltazar Childers MD [facility]-80102 Level 4 Est. Patient 12:25:11 CDT Baltazar Childers MD [facility] CPT-19191 Level 4 Est. Patient 14:22:31 CDT Baltazar Childers MD [facility]-88504 Level 4 Est. Patient 15:44:38 CDT [facility] Level 4 Est. Patient 11:34:17 CDT Baltazar Childers MD [facility] CPT-60536 Level 3 Est. Patient 16:40:40 CDT Baltazar Childers MD [facility] CPT-12055 Level 4 Est. Patient 10:41:24 CDT Baltazar Childers MD [facility] CPT-28072 Level 4 Est. Patient 16:01:48 CDT Baltazar Childers MD [facility] CPT-76933 Level 4 Est. Patient 16:54:07 RN PEDIATRIC Baltazar Childers MD [facility]-96717 Level 4 Est. Patient 15:42:12 CDT Baltazar Childers MD [facility] CPT-49359 Level 4 Est. Patient 11:29:55 CDT Baltazar Childers MD [facility] CPT-11730 Level 4 Est. Patient 14:15:19 CDT Baltazar Childers MD [facility] CPT-92607 Level 4 Est. Patient 12:20:13 CDT Baltazar Childers MD [facility] CPT-97928 Level 4 Est. Patient 14:52:45 RN PEDIATRIC Baltazar Childers MD [facility] CPT-92212 Level 4 Est. Patient 14:18:34 RN PEDIATRIC Baltazar Childers MD [facility] CPT-52056 Level 4 Est. Patient 15:18:29 CDT Baltazar Childers MD [facility] CPT-40396 Level 3 Est. Patient 12:45:34 CDT Baltazar Childers MD [facility] CPT-11715 Level 3 Est. Patient 10:10:11 CDT Baltazar Childers MD [facility] CPT-03085 Level 3 Est. Patient 14:07:50 CDT Baltazar Childers MD [facility] CPT-72121 Level 4 Est. Patient 12:26:10 RN PEDIATRIC Baltazar Childers MD [facility] CPT-70740 Level 4 Est. Patient 14:45:38 CDT Baltazar Childers MD [facility] CPT-30348 Level 4 New Patient 12:30:48 CDT Baltazar hinton MD [facility] Procedures Code Procedure Name Date Entry Date Standard Desc ription CPT-000 Give Appropriate Flu Vaccine 12:25:14 CDT 2 CPT-31925 First Vx - Ix admin via ID I M or jet injects without counseling by physician 13:08:59 CDT CPT-34501 Fluzone Quadrivalent Intramuscular Suspe nsion 0.5 ML 13:08:59 CDT CPT-20413 Venipuncture Draw Fee 12:04:12 CDT CPT-63399 Lipid - LAB USE ONLY 17:39:15 RN PEDIATRIC 9 CPT-88735 HGBA1C - LAB USE ONLY 17:39:15 RN PEDIATRIC CPT-62035 CMP - LAB USE ONLY 17:39:14 RN PEDIATRIC CPT-93179 Venipuncture Draw Fee 17:39:14 RN PEDIATRIC CPT-52175 First Vx - Ix admin via ID I M or jet injects without counseling by physician 16:55:17 RN PEDIATRIC CPT-23411 Fluzone Quadrivalent Intramuscular Suspe nsion 0.5 ML 16:55:17 RN PEDIATRIC CPT-58360 Renal Panel - LAB USE ONLY 17:39:20 CDT 201 10/31/07 CPT-09180 CBC - LAB USE ONLY 17:39:20 CDT CPT-74553 Venipuncture Draw Fee 17:39:20 CDT CPT-21887 Venipuncture Draw Fee 14:33:30 CDT CPT-44848 Renal Panel - LAB USE ONLY 14:33:30 CDT 201 10/31/07 CPT-79640 CBC - LAB USE ONLY 14:33:29 CDT CPT-86936 Venipuncture Draw Fee 14:50:21 RN PEDIATRIC CPT-01842 Immunization Single Admin 17:35:35 CDT 2014 CPT-60115 Fluzone Quadrivalent preservative free ( >=3yrs.) 17:35:35 CDT CPT-22061 Venipuncture Draw Fee 12:10:27 RN PEDIATRIC CPT-17779 Fluzone Quadrivalent Intramuscular Suspe nsion 0.5 ML 10:49:13 CDT CPT-57392 First Vx Component - Ix admi n via ID IM or jet inj without physician counseling 15:17:19 RN PEDIATRIC CPT-08477 Pneumovax 23 15:17:19 RN PEDIATRIC CPT-11443 Pneumovax 14:52:45 RN PEDIATRIC CPT-55108 Venipuncture Draw Fee 14:06:30 RN PEDIATRIC CPT-000 Give Appropriate Flu Vaccine 14:18:34 RN PEDIATRIC 2 CPT-70716 Administration single or combination vac cine inc oral 14:46:00 RN PEDIATRIC CPT-02079 Influenza split virus > age 3 14:46:00 RN PEDIATRIC CPT-OV Office Visit 19:13:16 CDT CPT-72283 Zostavax 18:41:56 CDT CPT-33461 Administration single or combination vac cine inc oral 12:56:39 CDT CPT-41398 Zoster Vaccine (Zostavax) 12:56:39 CDT 2012 CPT-61905 Venipuncture Draw Fee 10:58:57 CDT CPT-68617 Sono pelvis non OB uterus ovaries cervix 17:45:04 CDT CPT-98570 Sono retroperitoneal complete kidneys an d bladder 17:14:36 CDT CPT-OV Office Visit 14:59:38 RN PEDIATRIC CPT-J1070 Depo Testosterone 100 mg 14:50:13 CDT 03/05 CPT-15932 Abx/Therapy Injection 14:50:13 CDT CPT-29809 Administration single or combination vac cine inc oral 14:34:43 CDT CPT-79887 Influenza split virus > age 3 14:34:43 CDT CPT-J1070 Depo Testosterone 100 mg 17:37:13 CDT 01/11 CPT-55438 Abx/Therapy Injection 17:37:13 CDT CPT-21113 Venipuncture Draw Fee 16:30:13 CDT CPT-82893 Venipuncture Draw Fee 16:29:43 CDT CPT-J1070 Depo Testosterone 100 mg 14:45:38 CDT 01/11
--- OUTSIDE RECORDS SUMMARY | 2019-10-27 12:48 | XMS REPORT | Clinical Summary ---
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[employer] Personal history of colonic polyps PARESTHESIA, HANDS 782.0 Active Baltazar Childers MD Disturbance of skin sensation FH DIABETES V18.0 Active Baltazar Childers MD Family history of diabetes mellitus ANEMIA 285.9 Active Baltazar Childers MD Anemia, unspecified RENAL INSUFFICIENCY 593.9 Active Baltazar bynum MD Unspecified disorder of kidney and ureter CAD 414.00 Active Gladys Arce [facility] atherosclerosis of unspecified type of vessel, [place] or graft OTH NONSPC ABN FINDNG RAD&OTH [...] a day for neuropathy 2 NORTRIPTYLINE HCL 50450456374 Active Baltazar Childers MD Acti ve ASPIRIN 81 MG TBEC Take one (1) tablet by mouth daily ASPIRIN 37028859486 Active Baltazar Childers MD Active GABAPENTIN 300 MG ORAL CAPSULE 1 three times a day 201 12/03/26 GABAPENTIN 18377006755 No Longer Active Baltazar Childers MD Activ e LISINOPRIL 20 MG ORAL TABLET 1 tablet by mouth daily at night 2016 LISINOPRIL 47227882928 Active Baltazar Childers MD Active ZITHROMAX Z-ISAIAS 250 MG ORAL TABLET Take two tablets to day and then 1 tablet daily for 4 days AZITHROMYCIN 37540663683 No Longer A ctive Baltazar Childers MD Active LANTUS SOLOSTAR 100 UNIT/ML SUBCUTANEOUS SOLUTION PEN- INJECTOR 30 units SC daily INSULIN GLARGINE 02718656022 Active Baltazar Childers MD Active AMLODIPINE BESYLATE 5 MG ORAL TABLET 1 tab daily for HTN AMLODIPINE BESYLATE 45791387282 Active Baltazar Childers MD Active SYNTHROID 100 MCG ORAL TABLET 1 tablet by mouth daily LEVOTHYROXINE SODIUM 59275811440 Active Baltazar Childers MD Active GLIPIZIDE 10 MG ORAL TABLET take 2 tablets twice daily GLIPIZIDE 12593600217 Active Baltazar Childers MD Active SUCRALFATE 1 GM ORAL TABLET 1 four times a day to coat the stoma ch SUCRALFATE 40845873341 No Longer Active Baltazar Childers MD Active PEN NEEDLES 31G X 6 MM use 1 daily INSULIN PEN NE EDLE 41032687496 Active KENDALL Juarez Active TOUJEO SOLOSTAR 300 UNIT/ML SUBCUTANEOUS SOLUTION PEN- INJECTOR 10 units SC daily INSULIN GLARGINE 92169193004 No Longer Active Rola ahyes Herbert RMA Active NAPROXEN SODIUM 220 MG ORAL TABLET 1 three times a day as needed NAPROXEN SODIUM 33704998402 No Longer Active Baltazar Childers MD Active ATORVASTATIN CALCIUM 20 MG ORAL TABLET Take 1 tab daily ATORVASTATIN CALCIUM 90685221670 Active Baltazar Childers MD A ctive FUROSEMIDE 40 MG ORAL TABLET Take one by mouth daily FUROSEMIDE 19540929118 Active Baltazar Childers MD Active LISINOPRIL 20 MG ORAL TABLET Take one by mouth daily at bedtime LISINOPRIL 04770053155 No Longer Active Baltazar Childers MD Active ONETOUCH ULTRA BLUE IN VITRO STRIP Test twice a day 07/11/11 GLUCOSE BLOOD 43251106727 No Longer Active Baltazar Childers MD Acti ve TRUEPLUS LANCETS 33G Test twice a day LANCETS 7596921 6804 Active KENDALL Juarez Active TRUEDRAW LANCING DEVICE Test twice a day LANCET DEVICES 81620359298 Active Baltazar Childers MD Active TRUETRACK TEST IN VITRO STRIP Test twice a day GLUCOSE BLOOD 59854239679 Active Baltazar Childers MD Active TRUETRACK BLOOD GLUCOSE w/Device KIT Test twice a day BLOOD GLUCOSE MONITORING SUPPL 98917424632 Active Baltazar Childers MD Activ e HYDROCODONE-ACETAMINOPHEN 7.5-325 MG ORAL TABLET Take 1 tab every 6-8 hours PRN HYDROCODONE-ACETAMINOPHEN 45778805454 Active Baltazar Nickerson MD Active GABAPENTIN 300 MG ORAL CAPSULE 1 po qd x 2 days, then 1 po BID x 2 days, then 1 po TID GABAPENTIN 08840116750 No Longer Active Baltazar Childers MD Active TRAMADOL HCL 50 MG ORAL TABLET 1 twice a day as needed for pain 201 07/27/28 TRAMADOL HCL 64487919200 Active Baltazar Childers MD Active NAPROXEN 500 MG ORAL TABLET 1 tablet by mouth twice daily NAPROXEN 35533991243 No Longer Active Baltazar Childers MD Active PROAIR HFA 108 (90 Base) MCG/ACT INHALATION AEROSOL SO LUTION 2 puffs four times a day as needed ALBUTEROL SULFATE 58902018272 Active R gilberto Childers MD Active DEPO-TESTOSTERONE 200 MG/ML INTRAMUSCULAR SOLUTION as directed TESTOSTERONE CYPIONATE 51105676626 No Longer Active Baltazar Childers MD Active LIPITOR 20 MG ORAL TABLET Take one by mouth daily in evening ATORVASTATIN CALCIUM 49310961664 No Longer Active Baltazar Childers MD Active CRESTOR 10 MG ORAL TABLET 1 by mouth every day ROSUVASTATIN CALCIUM 72600022465 No Longer Active Baltazar Childers MD Active PHENTERMINE HCL 37.5 MG ORAL TABLET Take one by mouth daily PHENTERMINE HCL 65935033692 No Longer Active Baltazar Childers MD Ac tive ROBAXIN-750 750 MG ORAL TABLET Take one by mouth daily METHOCARBAMOL 33727172065 Active KENDALL Juarez Active TIZANIDINE HCL 4 MG ORAL TABLET 1 daily as needed for muscle spa sm TIZANIDINE HCL 49744897423 No Longer Active Dawna Salazar RN Active HRNOMJTHIY-IYTV-OYPEVNAF 50-325-40 MG ORAL TABLET 1 fo ur times a day as needed for heacache SNZYRRGSMV-CRDC-CYMYGTRY 47514314205 Active Baltazar Childers MD Active SUMATRIPTAN SUCCINATE 100 MG ORAL TABLET 1 tablet by m outh at onset of migraine as needed SUMATRIPTAN SUCCINATE 97581365708 Active KENDALL Restrepo Active LORATADINE 10 MG ORAL TABLET Take one by mouth daily LORATADINE 83334912936 Active KENDALL Juarez Active OMEPRAZOLE 20 MG ORAL CAPSULE DELAYED RELEASE Take one by mouth jostin ly OMEPRAZOLE 09803248301 Active Baltazar Childers MD Active HYDROXYZINE HCL 25 MG ORAL TABLET Take one by mouth daily HYDROXYZINE HCL 22366009628 Active Baltazar Childers MD Active ALPRAZOLAM 1 MG ORAL TABLET 1 tablet by mouth daily at bedti me for restless leg ALPRAZOLAM 58372640957 Active Baltazar Childers MD Active METFORMIN HCL 1000 MG ORAL TABLET Take one by mouth twice daily METFORMIN HCL 05429641967 Active Baltazar Childers MD Active TIZANIDINE HCL 4 MG ORAL TABLET 1 daily as needed for muscle spa sm TIZANIDINE HCL 4 MG ORAL TABLET 919516 TIZANIDINE HCL Inactive PHENTERMINE HCL 37.5 MG ORAL TABLET Take one by mouth daily PHENTERMINE HCL 37.5 MG ORAL TABLET 387732 PHENTERMINE HCL Inac tive CRESTOR 10 MG ORAL TABLET 1 by mouth every day CRESTOR 10 MG ORAL TABLET 235948 ROSUVASTATIN CALCIUM Inactive LIPITOR 20 MG ORAL TABLET Take one by mouth daily in evening LIPITOR 20 MG ORAL TABLET 839343 ATORVASTATIN CALCIUM Inactive DEPO-TESTOSTERONE 200 MG/ML INTRAMUSCULAR SOLUTION as directed DEPO-TESTOSTERONE 200 MG/ML INTRAMUSCULAR SOLUTION 670451 RUFINO TOSTERONE CYPIONATE Inactive NAPROXEN 500 MG ORAL TABLET 1 tablet by mouth twice daily NAPROXEN 500 MG ORAL TABLET 740201 NAPROXEN Inactive GABAPENTIN 300 MG ORAL CAPSULE 1 po qd x 2 days, then 1 po BID x 2 days, then 1 po TID GABAPENTIN 300 MG ORAL CAPSULE 484525 GABAP ENTIN Inactive ONETOUCH ULTRA BLUE IN VITRO STRIP Test twice a day 07/11/11 ONETOUCH ULTRA BLUE IN VITRO STRIP GLUCOSE BLOOD Inact amie NAPROXEN SODIUM 220 MG ORAL TABLET 1 three times a day as needed NAPROXEN SODIUM 220 MG ORAL TABLET 419468 NAPROXEN SODI UM Inactive TOUJEO SOLOSTAR 300 UNIT/ML SUBCUTANEOUS SOLUTION PEN- INJECTOR 10 units SC daily TOUJEO SOLOSTAR 300 UNIT/ML SUBCUTANEOUS SOLUTION PEN-INJECTOR INSULIN GLARGINE Inactive SUCRALFATE 1 GM ORAL TABLET 1 four times a day to coat the stoma ch SUCRALFATE 1 GM ORAL TABLET 762601 SUCRALFATE Inac tive GABAPENTIN 300 MG ORAL CAPSULE 1 three times a day 201 12/03/26 GABAPENTIN 300 MG ORAL CAPSULE 912814 GABAPENTIN Inactive ZITHROMAX Z-ISAIAS 250 MG ORAL TABLET Take two tablets to day and then 1 tablet daily for 4 days ZITHROMAX Z-ISAIAS 250 MG ORAL TAB LET 491871 AZITHROMYCIN Inactive Immunizations Vaccine Administration Date Value Standard Floyd cription pneumococcal immunization administered Pneumovax 23 [CVX33] pneumococcal polysaccharide vaccine, 23 valent Seasonal influenza vaccine, injectable, containing preservative, for > 3 years old (Afluria, FluLaval, Fluzone, Fluvirin, Fluarix, Agriflu(>= 18 yo)) Fluzone (>3 yrs.) [[id number]] Influenza, seasonal, inject able Seasonal influenza vaccine, injectable, containing preservative, for > 3 years old (Afluria, FluLaval, Fluzone, Fluvirin, Fluarix, Agriflu(>= 18 yo)) Fluzone (>3 yrs.) [KMX036] Influenza, seasonal, inject able Vital Signs Date [...] - Chem istry sodium, serum 139 mmol/L 286-317 9503/10/03 potassium, serum 4.7 mmol/L 3.5-5.2 chloride, serum 98 mmol/L 98-107 carbon dioxide, venous blood 28.7 mmol/L 21.0-32 .0 blood glucose 218 mg/dL 65-110 calcium, serum 9.8 mg/dL 8.5-10.1 urea nitrogen, blood 19 mg/dL 7-18 creatinine, serum 1.68 mg/dL 0.60-1.30 Lab Report: CBC, Renal Panel - Chemistry sodium, serum 142 mmol/L 872-087 8359/08/11 potassium, serum 4.8 mmol/L 3.5-5.2 chloride, serum [...] (L) - Chemistry cholesterol, serum 209 mg/dL 014-495 7560/12/27 triglyceride, serum, fasting 329 mg/dL 30-200 HDL cholesterol, serum 56 mg/dL 32-60 LDL cholesterol, serum 87 mg/dL 0-130 TSH 3.60 m[iU]/mL 0.36-3.74 Office Visit: Meds Check - Toxicology drug screen, urine, qualitative negative Encounters Code Encounter Date Provider Facility CPT-00661 [id number] Vst-Est Level V 14:26:27 CDT Aneudy Childers MD [facility] CPT-29992 Level 4 Est. Patient 17:05:37 CDT Baltazar Childers MD [facility] CPT-89192 Level 4 Est. Patient 16:21:19 PARTS CATALOGUER Baltazar Childers MD [facility] CPT-51831 Level 4 Est. Patient 12:25:11 CDT Baltazar Childers MD [facility]-46604 Level 4 Est. Patient 14:22:31 CDT Baltazar Childers MD [facility]-87355 Level 4 Est. Patient 15:44:38 CDT Shonna Elena CASTELLANOS [facility] CPT-87520 Level 4 Est. Patient 11:34:17 CDT Baltazar Childers MD [facility]-82465 Level 3 Est. Patient 16:40:40 CDT Baltazar Childres MD [facility]-48702 Level 4 Est. Patient 10:41:24 CDT Baltazar Childers MD [facility]-74273 Level 4 Est. Patient 16:01:48 CDT Baltazar Childers MD [facility]-35137 Level 4 Est. Patient 16:54:07 PARTS CATALOGUER Baltazar Childers MD [facility]-14415 Level 4 Est. Patient 15:42:12 CDT Baltazar Childers MD [facility] CPT-00482 Level 4 Est. Patient 11:29:55 CDT Baltazar hCilders MD [facility] CPT-78533 Level 4 Est. Patient 14:15:19 CDT Baltazar Childers MD [facility] CPT-54513 Level 4 Est. Patient 12:20:13 CDT Baltazar Childers MD [facility] CPT-32322 Level 4 Est. Patient 14:52:45 PARTS CATALOGUER Baltazar Childers MD [facility] CPT-96989 Level 4 Est. Patient 14:18:34 PARTS CATALOGUER Baltazar Childers MD [facility] CPT-00252 Level 4 Est. Patient 15:18:29 CDT Baltazar Childers MD [facility] CPT-91062 Level 3 Est. Patient 12:45:34 CDT Baltazar Childers MD [facility] CPT-62613 Level 3 Est. Patient 10:10:11 CDT Baltazar Childers MD [facility] CPT-60424 Level 3 Est. Patient 14:07:50 CDT Baltazar Childers MD [facility] CPT-40571 Level 4 Est. Patient 12:26:10 PARTS CATALOGUER Baltazar Childers MD [facility] CPT-34279 Level 4 Est. Patient 14:45:38 CDT Baltazar Childers MD [facility] CPT-57717 Level 4 New Patient 12:30:48 CDT Baltazar hinton MD [facility] Procedures Code Procedure Name Date Entry Date Standard Desc ription CPT-000 Give Appropriate Flu Vaccine 12:25:14 CDT 2 CPT-40651 First Vx - Ix admin via ID I M or jet injects without counseling by physician 13:08:59 CDT CPT-02018 Fluzone Quadrivalent Intramuscular Suspe nsion 0.5 ML 13:08:59 CDT CPT-27639 Venipuncture Draw Fee 12:04:12 CDT CPT-86915 Lipid - LAB USE ONLY 17:39:15 PARTS CATALOGUER 9 CPT-96316 HGBA1C - LAB USE ONLY 17:39:15 PARTS CATALOGUER CPT-05766 CMP - LAB USE ONLY 17:39:14 PARTS CATALOGUER CPT-24849 Venipuncture Draw Fee 17:39:14 PARTS CATALOGUER CPT-18560 First Vx - Ix admin via ID I M or jet injects without counseling by physician 16:55:17 PARTS CATALOGUER CPT-13536 Fluzone Quadrivalent Intramuscular Suspe nsion 0.5 ML 16:55:17 PARTS CATALOGUER CPT-18598 Renal Panel - LAB USE ONLY 17:39:20 CDT 201 10/31/07 CPT-41508 CBC - LAB USE ONLY 17:39:20 CDT CPT-00384 Venipuncture Draw Fee 17:39:20 CDT CPT-13694 Venipuncture Draw Fee 14:33:30 CDT CPT-02517 Renal Panel - LAB USE ONLY 14:33:30 CDT 201 10/31/07 CPT-59448 CBC - LAB USE ONLY 14:33:29 CDT CPT-13716 Venipuncture Draw Fee 14:50:21 PARTS CATALOGUER CPT-81609 Immunization Single Admin 17:35:35 CDT 2014 CPT-77160 Fluzone Quadrivalent preservative free ( >=3yrs.) 17:35:35 CDT CPT-76908 Venipuncture Draw Fee 12:10:27 PARTS CATALOGUER CPT-55645 Fluzone Quadrivalent Intramuscular Suspe nsion 0.5 ML 10:49:13 CDT CPT-52838 First Vx Component - Ix admi n via ID IM or jet inj without physician counseling 15:17:19 PARTS CATALOGUER CPT-89515 Pneumovax 23 15:17:19 PARTS CATALOGUER CPT-22526 Pneumovax 14:52:45 PARTS CATALOGUER CPT-82116 Venipuncture Draw Fee 14:06:30 PARTS CATALOGUER CPT-000 Give Appropriate Flu Vaccine 14:18:34 PARTS CATALOGUER 2 CPT-58491 Administration single or combination vac cine inc oral 14:46:00 PARTS CATALOGUER CPT-48615 Influenza split virus > age 3 14:46:00 PARTS CATALOGUER CPT-OV Office Visit 19:13:16 CDT CPT-68949 Zostavax 18:41:56 CDT CPT-09674 Administration single or combination vac cine inc oral 12:56:39 CDT CPT-49056 Zoster Vaccine (Zostavax) 12:56:39 CDT 2012 CPT-48418 Venipuncture Draw Fee 10:58:57 CDT CPT-73932 Sono pelvis non OB uterus ovaries cervix 17:45:04 CDT CPT-28641 Sono retroperitoneal complete kidneys an d bladder 17:14:36 CDT CPT-OV Office Visit 14:59:38 PARTS CATALOGUER CPT-J1070 Depo Testosterone 100 mg 14:50:13 CDT 03/05 CPT-02121 Abx/Therapy Injection 14:50:13 CDT CPT-28929 Administration single or combination vac cine inc oral 14:34:43 CDT CPT-15748 Influenza split virus > age 3 14:34:43 CDT CPT-J1070 Depo Testosterone 100 mg 17:37:13 CDT 01/11 CPT-26652 Abx/Therapy Injection 17:37:13 CDT CPT-52564 Venipuncture Draw Fee 16:30:13 CDT CPT-80936 Venipuncture Draw Fee 16:29:43 CDT CPT-J1070 Depo Testosterone 100 mg 14:45:38 CDT 01/11
--- OUTSIDE RECORDS SUMMARY | 2019-10-27 12:48 | XMS REPORT | Clinical Summary ---
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 Benign neoplasm of colon PERIPHERAL NEUROPATHY [...] ronary atherosclerosis of unspecified type of vessel, [place] or graft OTH NONSPC ABN FINDNG RAD&OTH [...] MISC use 1 daily INSULIN PEN NEEDLE 98548097023 Active Martita Herbert RMA Active TOUJEO SOLOSTAR 300 UNIT/ML SC SOPN 10 units SC daily INSULIN GLARGINE 99236598764 No Longer Active Martita Herbert RMA Active LANTUS SOLOSTAR 100 UNIT/ML SC SOPN 10 units SC daily INSULIN GLARGINE 99846884741 Active Martita Herbert RMA Active NAPROXEN SODIUM 220 MG ORAL TABS 1 three times a day as needed 2 NAPROXEN SODIUM 03720298737 No Longer Active Baltazar Childers MD Active ATORVASTATIN CALCIUM 20 MG ORAL TABS Take 1 tab daily ATORVASTATIN CALCIUM 53003648252 Active EKNDALL Juarez Active FUROSEMIDE 40 MG TABS Take one by mouth daily FUROSEMIDE 89850243160 Active Baltazar Childers MD Active LISINOPRIL 20 MG TABS Take one by mouth daily at bedtime LISINOPRIL 31124171748 Active Baltazar Childers MD Active ONETOUCH ULTRA BLUE STRP Test twice a day GLUCO SE BLOOD 21329792811 No Longer Active Baltazar Childers MD Active TRUEPLUS LANCETS 33G MISC Test twice a day LANCET S 33907288823 Active KENDALL Juarez Active TRUEDRAW LANCING DEVICE MISC Test twice a day L ANCET DEVICES 68767894581 Active Baltazar Childers MD Active TRUETRACK TEST STRP Test twice a day GLUCOSE BLOO D 76932301309 Active KENDALL Juarez Active TRUETRACK BLOOD GLUCOSE W/DEVICE KIT Test twice a day BLOOD GLUCOSE MONITORING SUPPL 54304253078 Active Baltazar Childers MD Activ e HYDROCODONE-ACETAMINOPHEN 7.5-325 MG TABS Take 1 tab every 6-8 hour s PRN HYDROCODONE-ACETAMINOPHEN 91332256639 Active Baltazar Childers MD Active NORTRIPTYLINE HCL 50 MG CAPS 1 every night for neuropathy 4 NORTRIPTYLINE HCL 18638064088 Active Baltazar Childers MD Acti ve GABAPENTIN 300 MG CAPS 1 three times a day GABAPE NTIN 74466567918 Active Baltazar Childers MD Active GABAPENTIN 300 MG CAPS 1 po qd x 2 days, then 1 po BID x 2 d ays, then 1 po TID GABAPENTIN 03292627249 No Longer Active Baltazar silverman MD Active TRAMADOL HCL 50 MG TABS 1 twice a day as needed for pain TRAMADOL HCL 62865464928 Active Baltazar Childers MD Active NAPROXEN 500 MG TABS 1 tablet by mouth twice daily NAPROXEN 39505468578 No Longer Active Baltazar Childers MD Active PROAIR HFA 108 (90 BASE) MCG/ACT AERS 2 puffs four times a d ay as needed ALBUTEROL SULFATE 77148655429 Active KENDALL Juarez Active DEPO-TESTOSTERONE 200 MG/ML OIL as directed RUFINO TOSTERONE CYPIONATE 61836417580 No Longer Active Baltazar Childers MD Active LIPITOR 20 MG TABS Take one by mouth daily in evening ATORVASTATIN CALCIUM 01250619597 No Longer Active Baltazar Childers MD Activ e CRESTOR 10 MG TABS 1 by mouth every day R OSUVASTATIN CALCIUM 80340112784 No Longer Active Baltazar Childers MD Activ e PHENTERMINE HCL 37.5 MG TABS Take one by mouth daily 2 PHENTERMINE HCL 93438002343 No Longer Active Baltazar Childers MD Activ e ROBAXIN-750 750 MG TABS Take one by mouth daily ME THOCARBAMOL 40776905737 Active Baltazar Childers MD Active TIZANIDINE HCL 4 MG TABS 1 daily as needed for muscle spasm 2011 TIZANIDINE HCL 88693828546 No Longer Active Dawna Salazar RN Active [id number] 50-325-40 MG TABS 1 four time s a day as needed for heacache [id number]-[id number]-[id number] 92220458480 Active Baltazar Childers MD Active SUMATRIPTAN SUCCINATE 100 MG TABS 1 tablet by mouth at onset of migraine as needed SUMATRIPTAN SUCCINATE 86808530399 Active KENDALL Juarez Active LORATADINE 10 MG TABS Take one by mouth daily LORATADINE 87955488085 Active Baltazar Childers MD Active OMEPRAZOLE 20 MG CPDR Take one by mouth daily OMEPRAZOLE 40635416508 Active [place] Fitzgeralder Active HYDROXYZINE HCL 25 MG TABS Take one by mouth daily HYDROXYZINE HCL 55137578378 Active Baltazar Childers MD Active GLIPIZIDE 10 MG TABS 1 tablet by mouth twice daily GLIPIZIDE 68242979653 Active Baltazar Childers MD Active ALPRAZOLAM 1 MG TABS 1 tablet by mouth daily at bedtime for restles s leg ALPRAZOLAM 63416287066 Active Baltazar Childers MD Active METFORMIN HCL 1000 MG TABS Take one by mouth twice daily METFORMIN HCL 63392494235 Active Baltazar Childers MD Active TIZANIDINE HCL 4 MG TABS 1 daily as needed for muscle spasm 2011 TIZANIDINE HCL 4 MG TABS 639856 TIZANIDINE HCL Inactiv e PHENTERMINE HCL 37.5 MG TABS Take one by mouth daily 2 PHENTERMINE HCL 37.5 MG TABS 682776 PHENTERMINE HCL Inactive CRESTOR 10 MG TABS 1 by mouth every day C RESTOR 10 MG TABS 017865 ROSUVASTATIN CALCIUM Inactive LIPITOR 20 MG TABS Take one by mouth daily in evening LIPITOR 20 MG TABS 702824 ATORVASTATIN CALCIUM Inactive DEPO-TESTOSTERONE 200 MG/ML OIL as directed 8 DEPO-TESTOSTERONE 200 MG/ML OIL 749919 TESTOSTERONE CYPIONATE Inactive NAPROXEN 500 MG TABS 1 tablet by mouth twice daily 201 07/27/22 NAPROXEN 500 MG TABS 550783 NAPROXEN Inactive GABAPENTIN 300 MG CAPS 1 po qd x 2 days, then 1 po BID x 2 d ays, then 1 po TID GABAPENTIN 300 MG CAPS 445852 GABAPENTIN Inact maie ONETOUCH ULTRA BLUE STRP Test twice a day ONETOUCH ULTRA BLUE STRP GLUCOSE BLOOD Inactive NAPROXEN SODIUM 220 MG ORAL TABS 1 three times a day as needed 2 NAPROXEN SODIUM 220 MG ORAL TABS 426822 NAPROXEN SODIUM Inactive TOUJEO SOLOSTAR 300 UNIT/ML [...] Fluarix, Agriflu(>= 18 yo)) Fluzone (>3 yrs.) [HQI358] Influenza, seasonal, inject able Seasonal influenza vaccine, injectable, containing preservative, for > 3 years old (Afluria, FluLaval, Fluzone, Fluvirin, Fluarix, Agriflu(>= 18 yo)) Fluzone (>3 yrs.) [[id number]] Influenza, seasonal, inject able Vital Signs Date [...] C - Chemistry sodium, serum 139 mmol/L 546-794 8013/07/07 potassium, serum 4.5 mmol/L 3.5-5.2 chloride, serum [...] 7.9 % 4.3-6.0 sodium, serum 139 mmol/L 125-797 3471/02/04 potassium, serum 5.4 mmol/L 3.5-5.2 chloride, serum [...] Panel - Chemistry sodium, serum 138 mmol/L 654-214 7792/11/23 carbon dioxide, venous blood 32.4 mmol/L 21.0-32 .0 potassium, serum 5.7 mmol/L 3.5-5.2 chloride, serum 98 mmol/L 98-107 blood glucose 136 mg/dL 65-110 urea nitrogen, blood 18 mg/dL 7-18 creatinine, serum 1.71 mg/dL 0.55-1.30 alanine aminotransferase (SGPT), serum 71 U/L 12-78 aspartate aminotransferase (SGOT), serum 34 U/L 15-37 calcium, serum 9.4 mg/dL 8.5-10.1 bilirubin, serum, total 0.40 mg/dL 0.00-1.00 cholesterol, serum 405 mg/dL 182-406 4417/11/23 triglyceride, serum, fasting 709 mg/dL 30-200 HDL [...] Panel - Chemistry sodium, serum 141 mmol/L 823-198 4027/08/08 potassium, serum 4.9 mmol/L 3.5-5.2 chloride, serum [...] mg/dL Encounters Code Encounter Date Provider Facility CPT-00485 Level 3 Est. Patient 16:40:40 CDT Baltazar Childers MD [facility] CPT-95658 Level 4 Est. Patient 10:41:24 CDT Baltazar Childers MD [facility] CPT-79271 Level 4 Est. Patient 16:01:48 CDT Baltazar Childers MD [facility] CPT-59978 Level 4 Est. Patient 16:54:07 [employer] WE[employer] DEVELOPER Baltazar Childers MD [facility] CPT-05759 Level 4 Est. Patient 15:42:12 CDT Baltazar Childers MD [facility] CPT-41161 Level 4 Est. Patient 11:29:55 CDT Baltazar Childers MD [facility] CPT-31343 Level 4 Est. Patient 14:15:19 CDT Baltazar Childers MD [facility] CPT-16733 Level 4 Est. Patient 12:20:13 CDT Baltazar Childers MD [facility] CPT-54206 Level 4 Est. Patient 14:52:45 [employer] DEVELOPER Baltazar Childers MD [facility] CPT-50543 Level 4 Est. Patient 14:18:34 MAG[employer] WE[employer] DEVELOPER Baltazar Childers MD [facility] CPT-91064 Level 4 Est. Patient 15:18:29 CDT Baltazar Childers MD [facility] CPT-35118 Level 3 Est. Patient 12:45:34 CDT Baltazar Childers MD [facility] CPT-98485 Level 3 Est. Patient 10:10:11 CDT Baltazar Childers MD [facility] CPT-92655 Level 3 Est. Patient 14:07:50 CDT Baltazar Childers MD [facility] CPT-11365 Level 4 Est. Patient 12:26:10 [employer] DEVELOPER Baltazar Childers MD [facility] CPT-90811 Level 4 Est. Patient 14:45:38 CDT Baltazar Childers MD [facility] CPT-07273 Level 4 New Patient 12:30:48 CDT Baltazar ihnton MD [facility] Procedures Code Procedure Name Date Entry Date Standard Desc ription CPT-33747 Renal Panel - LAB USE ONLY 17:39:20 CDT 201 10/31/07 CPT-70458 CBC - LAB USE ONLY 17:39:20 CDT CPT-78148 Venipuncture Draw Fee 17:39:20 CDT CPT-36736 Venipuncture Draw Fee 14:33:30 CDT CPT-52526 Renal Panel - LAB USE ONLY 14:33:30 CDT 201 10/31/07 CPT-29556 CBC - LAB USE ONLY 14:33:29 CDT CPT-27789 Venipuncture Draw Fee 14:50:21 [employer] WE[employer] DEVELOPER CPT-40881 Immunization Single Admin 17:35:35 CDT 2014 CPT-58374 Fluzone Quadrivalent preservative free ( >=3yrs.) 17:35:35 CDT CPT-37044 Venipuncture Draw Fee 12:10:27 [employer] WE[employer] DEVELOPER CPT-75942 Fluzone Quadrivalent Intramuscular Suspe nsion 0.5 ML 10:49:13 CDT CPT-28700 First Vx Component - Ix admi n via ID IM or jet inj without physician counseling 15:17:19 [employer] WE[employer] DEVELOPER CPT-51479 Pneumovax 23 15:17:19 [employer] WE[employer] DEVELOPER CPT-02994 Pneumovax 14:52:45 MAG[employer] WE[employer] DEVELOPER CPT-99408 Venipuncture Draw Fee 14:06:30 MAG[employer] WE[employer] DEVELOPER CPT-000 Give Appropriate Flu Vaccine 14:18:34 MAG[employer] WE[employer] DEVELOPER 2 CPT-20096 Administration single or combination vac cine inc oral 14:46:00 [employer] WE[employer] DEVELOPER CPT-57287 Influenza split virus > age 3 14:46:00 [employer] WE[employer] DEVELOPER CPT-OV Office Visit 19:13:16 CDT CPT-25076 Zostavax 18:41:56 CDT CPT-36684 Administration single or combination vac cine inc oral 12:56:39 CDT CPT-93235 Zoster Vaccine (Zostavax) 12:56:39 CDT 2012 CPT-50610 Venipuncture Draw Fee 10:58:57 CDT CPT-48110 Sono pelvis non OB uterus ovaries cervix 17:45:04 CDT CPT-90262 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
--- OUTSIDE RECORDS SUMMARY | 2019-10-27 12:48 | XMS REPORT | Clinical Summary ---
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 Benign neoplasm of colon PERIPHERAL NEUROPATHY 356.9 [...] of kidney and ureter CAD 414.00 Active Glayds Yazmin Coronar y atherosclerosis of unspecified type of vessel, [place] or graft OTH NONSPC ABN FINDNG RAD&OTH [...] MISC Test twice a day LANCET S 19936773271 Active Baltazar Childers MD Active TRUEDRAW LANCING DEVICE MISC Test twice a day L ANCET DEVICES 33001193966 Active Baltazar Childers MD Active TRUETRACK TEST STRP Test twice a day GLUCOSE BLOO D 93707371463 Active Baltazar Childers MD Active TRUETRACK BLOOD GLUCOSE W/DEVICE KIT Test twice a day BLOOD GLUCOSE MONITORING SUPPL 97615038388 Active Bella Suarez APRN Active HYDROCODONE-ACETAMINOPHEN 7.5-325 MG TABS Take 1 tab every 6-8 hour s PRN HYDROCODONE-ACETAMINOPHEN 34813038499 Active Baltazar Childers MD Active NORTRIPTYLINE HCL 50 MG CAPS 1 every night for neuropathy 4 NORTRIPTYLINE HCL 43168024555 Active Bella Suarez APRN Active GABAPENTIN 300 MG CAPS 1 three times a day GABAPE NTIN 83078580746 Active Baltazar Childers MD Active GABAPENTIN 300 MG CAPS 1 po qd x 2 days, then 1 po BID x 2 d ays, then 1 po TID GABAPENTIN 90517895547 No Longer Active Baltazar silverman MD Active TRAMADOL HCL 50 MG TABS 1 twice a day as needed for pain TRAMADOL HCL 68380093574 Active Baltazar Childers MD Active NAPROXEN 500 MG TABS 1 tablet by mouth twice daily NAPROXEN 97169768644 No Longer Active Baltazar Childers MD Active PROAIR HFA 108 (90 BASE) MCG/ACT AERS 2 puffs four times a d ay as needed ALBUTEROL SULFATE 48993651938 Active Baltazar Childers MD Active DEPO-TESTOSTERONE 200 MG/ML OIL as directed RUFINO TOSTERONE CYPIONATE 51968240637 No Longer Active Baltazar Childers MD Active LIPITOR 20 MG TABS Take one by mouth daily in evening ATORVASTATIN CALCIUM 78271981139 No Longer Active Baltazra Childers MD Activ e CRESTOR 10 MG TABS 1 by mouth every day R OSUVASTATIN CALCIUM 85567703900 No Longer Active Baltazar Childers MD Activ e PHENTERMINE HCL 37.5 MG TABS Take one by mouth daily 2 PHENTERMINE HCL 51877020974 No Longer Active Baltazar Childers MD Activ e ROBAXIN-750 750 MG TABS Take one by mouth daily ME THOCARBAMOL 55922000790 Active Baltazar hCilders MD Active TIZANIDINE HCL 4 MG TABS 1 daily as needed for muscle spasm 2011 TIZANIDINE HCL 16269139198 No Longer Active Dawna Salazar RN Active StippleUCH ULTRA BLUE STRP Test twice a day GLUCO SE BLOOD 10024974039 Active Baltazar Childers MD Active KLPNEUDQLN-[id number]-[id number] 50-325-40 MG TABS 1 four time s a day as needed for heacache [id number] 94076930932 Active Baltazar Childers MD Active SUMATRIPTAN SUCCINATE 100 MG TABS 1 tablet by mouth at onset of migraine as needed SUMATRIPTAN SUCCINATE 91838562727 Active Baltazar barron MD Active LORATADINE 10 MG TABS Take one by mouth daily LORATADINE 53629637887 Active Baltazar Childers MD Active FUROSEMIDE 40 MG TABS Take one by mouth daily FUROSEMIDE 15759104535 Active Baltaazr Childers MD Active LISINOPRIL 20 MG TABS Take one by mouth daily at bedtime LISINOPRIL 70623216610 Active Bella Suarez APRN Active OMEPRAZOLE 20 MG CPDR Take one by mouth daily OMEPRAZOLE 58364574344 Active Baltazar Childers MD Active HYDROXYZINE HCL 25 MG TABS Take one by mouth daily HYDROXYZINE HCL 87552892382 Active Baltazar Childers MD Active GLIPIZIDE 10 MG TABS 1 tablet by mouth twice daily GLIPIZIDE 02629833805 Active Baltazar Childers MD Active ALPRAZOLAM 1 MG TABS 1 tablet by mouth daily at bedtime for restles s leg ALPRAZOLAM 41814615478 Active Baltazar Childers MD Active METFORMIN HCL 1000 MG TABS Take one by mouth twice daily METFORMIN HCL 18881822265 Active Baltazar Childers MD Active TIZANIDINE HCL 4 MG TABS 1 daily as needed for muscle spasm 2011 TIZANIDINE HCL 4 MG TABS 244487 TIZANIDINE HCL Inactiv e PHENTERMINE HCL 37.5 MG TABS Take one by mouth daily 2 PHENTERMINE HCL 37.5 MG TABS 516288 PHENTERMINE HCL Inactive CRESTOR 10 MG TABS 1 by mouth every day C RESTOR 10 MG TABS ROSUVASTATIN CALCIUM Inactive LIPITOR 20 MG TABS Take one by mouth daily in evening LIPITOR 20 MG TABS 347264 ATORVASTATIN CALCIUM Inactive DEPO-TESTOSTERONE 200 MG/ML OIL as directed 8 DEPO-TESTOSTERONE 200 MG/ML OIL 510758 TESTOSTERONE CYPIONATE Inactive NAPROXEN 500 MG TABS 1 tablet by mouth twice daily 201 07/27/22 NAPROXEN 500 MG TABS 578110 NAPROXEN Inactive GABAPENTIN 300 MG CAPS 1 po qd x 2 days, then 1 po BID x 2 d ays, then 1 po TID GABAPENTIN 300 MG CAPS 372642 GABAPENTIN Inact amie Immunizations Vaccine Administration Date Value Standard Floyd cription pneumococcal immunization administered Pneumovax 23 [CVX33] pneumococcal polysaccharide vaccine, 23 valent Seasonal influenza vaccine, injectable, containing preservative, for > 3 years old (Afluria, FluLaval, Fluzone, Fluvirin, Fluarix, Agriflu(>= 18 yo)) Fluzone (>3 yrs.) [RUK350] Influenza, seasonal, inject able Seasonal influenza vaccine, injectable, containing preservative, for > 3 years old (Afluria, FluLaval, Fluzone, Fluvirin, Fluarix, Agriflu(>= 18 yo)) Fluzone (>3 yrs.) [RIG134] Influenza, seasonal, inject able Vital Signs Date [...] Panel - Chemistry sodium, serum 139 mmol/L 729-105 9364/01/20 potassium, serum 5.3 mmol/L 3.5-5.2 chloride, serum [...] mg/g mg/g{creat} 0-29 cholesterol, serum 319 mg/dL 315-275 3326/08/21 triglyceride, serum, fasting 546 mg/dL 30-200 HDL cholesterol, serum 39 mg/dL 32-96 LDL cholesterol, serum 167.00 mg/dL 5.00-130.00 hemoglobin A1C, blood, as % of total hemoglobin 7.7 % 4.3-6.0 sodium, serum 138 mmol/L 191-198 3729/08/21 potassium, serum 4.3 mmol/L 3.5-5.2 chloride, serum [...] 0-19 Encounters Code Encounter Date Provider Facility CPT-47095 Level 4 Est. Patient 14:15:19 CDT Baltazar Childers MD [facility] CPT-76235 Level 4 Est. Patient 12:20:13 CDT Baltazar Childers MD [facility] CPT-54543 Level 4 Est. Patient 14:52:45 SUPERINTENDENT RADIO COMMUNICATIONS Baltazar Childers MD [facility] CPT-71346 Level 4 Est. Patient 14:18:34 SUPERINTENDENT RADIO COMMUNICATIONS Baltazar Childers MD [facility] CPT-39832 Level 4 Est. Patient 15:18:29 CDT Baltazar Childers MD [facility] CPT-23619 Level 3 Est. Patient 12:45:34 CDT Baltazar Childers MD [facility] CPT-52983 Level 3 Est. Patient 10:10:11 CDT Baltazar Childers MD [facility] CPT-65531 Level 3 Est. Patient 14:07:50 CDT Baltazar Childers MD [facility] CPT-99749 Level 4 Est. Patient 12:26:10 SUPERINTENDENT RADIO COMMUNICATIONS Baltazar Childers MD [facility] CPT-07070 Level 4 Est. Patient 14:45:38 CDT Baltazar Childers MD [facility] CPT-18337 Level 4 New Patient 12:30:48 CDT Baltazar hinton MD [facility] Procedures Code Procedure Name Date Entry Date Standard Desc ription CPT-27829 Venipuncture Draw Fee 12:10:27 SUPERINTENDENT [employer] COMMUNICATIONS CPT-33984 Fluzone Quadrivalent Intramuscular Suspe nsion 0.5 ML 10:49:13 CDT CPT-85718 First Vx Component - Ix admi n via ID IM or jet inj without physician counseling 15:17:19 SUPERINTENDENT [employer] COMMUNICATIONS CPT-98096 Pneumovax 23 15:17:19 SUPERINTENDENT [employer]IO COMMUNICATIONS CPT-63554 Pneumovax 14:52:45 SUPERINTENDENT [employer]IO COMMUNICATIONS CPT-27314 Venipuncture Draw Fee 14:06:30 SUPERINTENDENT [employer]IO COMMUNICATIONS CPT-000 Give Appropriate Flu Vaccine 14:18:34 SUPERINTENDENT RADIO COMMUNICATIONS 2 CPT-13977 Administration single or combination vac cine inc oral 14:46:00 SUPERINTENDENT RADIO COMMUNICATIONS CPT-28673 Influenza split virus > age 3 14:46:00 SUPERINTENDENT RADIO COMMUNICATIONS CPT-OV Office Visit 19:13:16 CDT CPT-89627 Zostavax 18:41:56 CDT CPT-53808 Administration single or combination vac cine inc oral 12:56:39 CDT CPT-91246 Zoster Vaccine (Zostavax) 12:56:39 CDT 2012 CPT-35009 Venipuncture Draw Fee 10:58:57 CDT CPT-14051 Sono pelvis non OB uterus ovaries cervix 17:45:04 CDT CPT-38282 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
--- OUTSIDE RECORDS SUMMARY | 2019-10-27 12:48 | XMS REPORT | Clinical Summary ---
Author Author Admin, Elba Lance [facility] Address Unknown Phone Unavailable Allergies, Adverse [...] Carpal tunnel syndrome OBESITY 278.00 Active Baltazar Chiledrs MD Obesity, unspecified ADD 314.00 Active Baltazar Childers MD Attention deficit disorder of childhood without mention of hyperactivity DECREASED LIBIDO 799.81 Active Baltazar Wayne Decreased libido COLON POLYPS 211.3 Resolved Lolis Thomas [employer] K[employer]PER Benign neoplasm of colon PERIPHERAL NEUROPATHY 356.9 [...] 1 tablet daily for 4 days AZITHROMYCIN 59399013139 No Longer Active Yousif Childers MD Active LANTUS SOLOSTAR 100 UNIT/ML SC SOPN 30 units SC daily INSULIN GLARGINE 04536876000 Active Baltazar Childers MD Active AMLODIPINE BESYLATE 5 MG ORAL TABS 1 tab daily for HTN AMLODIPINE BESYLATE 31931790216 Active Baltazar Childers MD Active SYNTHROID 0.1 MG TAB 1 tablet by mouth daily LE VOTHYROXINE SODIUM 07510147643 Active Baltazar Childers MD Active GLIPIZIDE 10 MG TAB take 2 tablets twice daily GLIPIZIDE 25722627917 Active Baltazar Childers MD Active SUCRALFATE 1 GM TABS 1 four times a day to coat the stomach 2015 SUCRALFATE 69413969222 No Longer Active Baltazar Childers MD Active PEN NEEDLES 31G X 6 MM MISC use 1 daily INSULIN PEN NEEDLE 31493439622 Active KENDALL Juarez Active TOUJEO SOLOSTAR 300 UNIT/ML SC SOPN 10 units SC daily INSULIN GLARGINE 78423373567 No Longer Active Martita ARGUETA Active NAPROXEN SODIUM 220 MG ORAL TABS 1 three times a day as needed 2 NAPROXEN SODIUM 45886399525 No Longer Active Baltazar Childers MD Active ATORVASTATIN CALCIUM 20 MG ORAL TABS Take 1 tab daily ATORVASTATIN CALCIUM 92342156187 Active Baltazar Childers MD Active FUROSEMIDE 40 MG TABS Take one by mouth daily FUROSEMIDE 37763695830 Active Baltazar Childers MD Active LISINOPRIL 20 MG TABS Take one by mouth daily at bedtime LISINOPRIL 56841945022 No Longer Active Baltazar Childers MD Active ONETOUCH ULTRA BLUE STRP Test twice a day GLUCO SE BLOOD 78974625952 No Longer Active Baltazar Childers MD Active TRUEPLUS LANCETS 33G MISC Test twice a day LANCET S 77564961524 Active KENDALL Juarez Active TRUEDRAW LANCING DEVICE MISC Test twice a day L ANCET DEVICES 65623716996 Active Baltazar Childers MD Active TRUETRACK TEST STRP Test twice a day GLUCOSE BLOO D 05145735929 Active KENDALL Juarez Active TRUETRACK BLOOD GLUCOSE W/DEVICE KIT Test twice a day BLOOD GLUCOSE MONITORING SUPPL 90277200478 Active Baltazar Childers MD Activ e HYDROCODONE-ACETAMINOPHEN 7.5-325 MG TABS Take 1 tab every 6-8 hour s PRN HYDROCODONE-ACETAMINOPHEN 06164206882 Active Baltazar Childers MD Active NORTRIPTYLINE HCL 50 MG CAPS 1 every night for neuropathy 4 NORTRIPTYLINE HCL 11518521836 Active Baltazar Childers MD Acti ve GABAPENTIN 300 MG CAPS 1 three times a day GABAPE NTIN 51777180102 Active Baltazar Childers MD Active GABAPENTIN 300 MG CAPS 1 po qd x 2 days, then 1 po BID x 2 d ays, then 1 po TID GABAPENTIN 42655567970 No Longer Active Baltazar silverman MD Active TRAMADOL HCL 50 MG TABS 1 twice a day as needed for pain TRAMADOL HCL 00102464027 Active Baltazar Childers MD Active NAPROXEN 500 MG TABS 1 tablet by mouth twice daily NAPROXEN 90751113014 No Longer Active Baltazar Childers MD Active PROAIR HFA 108 (90 BASE) MCG/ACT AERS 2 puffs four times a d ay as needed ALBUTEROL SULFATE 18321772067 Active Baltazar Childers MD Active DEPO-TESTOSTERONE 200 MG/ML OIL as directed RUFINO TOSTERONE CYPIONATE 26204846717 No Longer Active Baltazar Childers MD Active LIPITOR 20 MG TABS Take one by mouth daily in evening ATORVASTATIN CALCIUM 85998510814 No Longer Active Baltazar Childers MD Activ e CRESTOR 10 MG TABS 1 by mouth every day R OSUVASTATIN CALCIUM 03200232086 No Longer Active Baltazar Childers MD Activ e PHENTERMINE HCL 37.5 MG TABS Take one by mouth daily 2 PHENTERMINE HCL 50027912648 No Longer Active Baltazar Childers MD Activ e ROBAXIN-750 750 MG TABS Take one by mouth daily ME THOCARBAMOL 28066591089 Active Baltazar Childers MD Active TIZANIDINE HCL 4 MG TABS 1 daily as needed for muscle spasm 2011 TIZANIDINE HCL 22877484640 No Longer Active Dawna Salazar RN Active [id number] 50-325-40 MG TABS 1 four time s a day as needed for heacache [id number] 97538071193 Active KENDALL Juarez Active SUMATRIPTAN SUCCINATE 100 MG TABS 1 tablet by mouth at onset of migraine as needed SUMATRIPTAN SUCCINATE 85435468343 Active Baltazar bynum MD Active LORATADINE 10 MG TABS Take one by mouth daily LORATADINE 55612741399 Active Baltazar Childers MD Active OMEPRAZOLE 20 MG CPDR Take one by mouth daily OMEPRAZOLE 62831661517 Active Baltazar Childers MD Active HYDROXYZINE HCL 25 MG TABS Take one by mouth daily HYDROXYZINE HCL 72051864312 Active Baltzaar Childers MD Active ALPRAZOLAM 1 MG TABS 1 tablet by mouth daily at bedtime for restles s leg ALPRAZOLAM 53633188822 Active Baltazar Childers MD Active METFORMIN HCL 1000 MG TABS Take one by mouth twice daily METFORMIN HCL 43688430588 Active Baltazar Childers MD Active TIZANIDINE HCL 4 MG TABS 1 daily as needed for muscle spasm 2011 TIZANIDINE HCL 4 MG TABS 871170 TIZANIDINE HCL Inactiv e PHENTERMINE HCL 37.5 MG TABS Take one by mouth daily 2 PHENTERMINE HCL 37.5 MG TABS 397443 PHENTERMINE HCL Inactive CRESTOR 10 MG TABS 1 by mouth every day C RESTOR 10 MG TABS 232622 ROSUVASTATIN CALCIUM Inactive LIPITOR 20 MG TABS Take one by mouth daily in evening LIPITOR 20 MG TABS 535260 ATORVASTATIN CALCIUM Inactive DEPO-TESTOSTERONE 200 MG/ML OIL as directed 8 DEPO-TESTOSTERONE 200 MG/ML OIL 691751 TESTOSTERONE CYPIONATE Inactive NAPROXEN 500 MG TABS 1 tablet by mouth twice daily 201 07/27/22 NAPROXEN 500 MG TABS 547752 NAPROXEN Inactive GABAPENTIN 300 MG CAPS 1 po qd x 2 days, then 1 po BID x 2 d ays, then 1 po TID GABAPENTIN 300 MG CAPS 677841 GABAPENTIN Inact amie ONETOUCH ULTRA BLUE STRP Test twice a day ONETOUCH ULTRA BLUE STRP GLUCOSE BLOOD Inactive NAPROXEN SODIUM 220 MG ORAL TABS 1 three times a day as needed 2 NAPROXEN SODIUM 220 MG ORAL TABS 816565 NAPROXEN SODIUM Inactive TOUJEO SOLOSTAR 300 UNIT/ML SC SOPN 10 units SC daily TOUJEO SOLOSTAR 300 UNIT/ML SC SOPN INSULIN GLARGINE Inac tive SUCRALFATE 1 GM TABS 1 four times a day to coat the stomach 2015 SUCRALFATE 1 GM TABS 062061 SUCRALFATE Inactive ZITHROMAX Z-ISAIAS 250 MG TABS Take two tablets today and then 1 tablet daily for 4 days ZITHROMAX Z-ISAIAS 250 MG TABS 685515 AZITHROM YCIN Inactive Immunizations Vaccine Administration Date Value Standard Floyd cription pneumococcal immunization administered Pneumovax 23 [CVX33] pneumococcal polysaccharide vaccine, 23 valent Seasonal influenza vaccine, injectable, containing preservative, for > 3 years old (Afluria, FluLaval, Fluzone, Fluvirin, Fluarix, Agriflu(>= 18 yo)) Fluzone (>3 yrs.) [[id number]] Influenza, seasonal, inject able Seasonal influenza vaccine, injectable, containing preservative, for > 3 years old (Afluria, FluLaval, Fluzone, Fluvirin, Fluarix, Agriflu(>= 18 yo)) Fluzone (>3 yrs.) [FPL953] Influenza, seasonal, inject able Vital Signs Date [...] - Chem istry sodium, serum 139 mmol/L 752-835 6908/10/03 potassium, serum 4.7 mmol/L 3.5-5.2 chloride, serum 98 mmol/L 98-107 carbon dioxide, venous blood 28.7 mmol/L 21.0-32 .0 blood glucose 218 mg/dL 65-110 calcium, serum 9.8 mg/dL 8.5-10.1 urea nitrogen, blood 19 mg/dL 7-18 creatinine, serum 1.68 mg/dL 0.60-1.30 Lab Report: Basic Metabolic Panel, HGBA1 C - Chemistry sodium, serum 143 mmol/L 392-753 0317/06/19 potassium, serum 5.9 mmol/L 3.5-5.2 chloride, serum 105 mmol/L 98-107 carbon dioxide, venous blood 30.2 mmol/L 21.0-32 .0 blood glucose 189 mg/dL 65-110 calcium, serum 9.7 mg/dL 8.5-10.1 urea nitrogen, blood 37 mg/dL 7-18 creatinine, serum 2.11 mg/dL 0.55-1.30 hemoglobin A1C, blood, as % of total hemoglobin 8.2 % 4.3-6.0 Lab Report: CBC, Renal Panel - Chemistry sodium, serum 142 mmol/L 474-113 1009/08/11 potassium, serum 4.8 mmol/L 3.5-5.2 chloride, serum [...] 11 .6-14.8 platelet count 304 10^3/MM^3 10*3/mm3 738-940 6822/08/11 leukocyte count, blood 7.2 10^3/MM^3 10*3/mm3 4.6-10.2 erythrocyte (RBC) count 4.02 10^6/MM^3 10*6/mm3 3.80-5.8 0 hemoglobin, blood 12.5 g/dL 12.0-16.0 hematocrit, blood 38.4 % 37.0-47.0 mean corpuscular volume, RBC 96 fL 80-97 mean corpuscular hemoglobin, RBC 31.1 pg 27. 0-31.2 Lab Report: Comp. Metabolic Panel, Lipid Panel - Chemistry sodium, serum 143 mmol/L 384-066 5787/12/19 carbon dioxide, venous blood 32.5 mmol/L 21.0-32 .0 potassium, serum 4.9 mmol/L 3.5-5.2 chloride, serum 101 mmol/L 98-107 blood glucose 129 mg/dL 65-110 urea nitrogen, blood 18 mg/dL 7-18 creatinine, serum 1.79 mg/dL 0.55-1.30 alanine aminotransferase (SGPT), serum 34 U/L 12-78 aspartate aminotransferase (SGOT), serum 26 U/L 15-37 calcium, serum 8.9 mg/dL 8.5-10.1 bilirubin, serum, total 0.30 mg/dL 0.00-1.00 cholesterol, serum 214 mg/dL 696-131 2421/12/19 triglyceride, serum, fasting 351 mg/dL 30-200 HDL [...] 4.3-6.0 Encounters Code Encounter Date Provider Facility CPT-82952 Level 4 Est. Patient 12:25:11 CDT Baltazar Childers MD [facility] CPT-58559 Level 4 Est. Patient 14:22:31 CDT Baltazar Childers MD [facility]-54862 Level 4 Est. Patient 15:44:38 CDT Shonna Parker APRN [facility]-42408 Level 4 Est. Patient 11:34:17 CDT Baltazar Childers MD [facility]-73354 Level 3 Est. Patient 16:40:40 CDT Baltazar Childers MD [facility]-16669 Level 4 Est. Patient 10:41:24 CDT Baltazar Childers MD [facility]-69019 Level 4 Est. Patient 16:01:48 CDT Baltazar Childers MD [facility]-13860 Level 4 Est. Patient 16:54:07 AUDIT MACHINE OPERATOR Baltazar Childers MD [facility]-75271 Level 4 Est. Patient 15:42:12 CDT Baltazar Childers MD [facility] CPT-49243 Level 4 Est. Patient 11:29:55 CDT Baltazar Childers MD [facility] CPT-44904 Level 4 Est. Patient 14:15:19 CDT Baltazar Childers MD [facility] [place][note 2]-31500 Level 4 Est. Patient 12:20:13 CDT Baltazar Childers MD [facility] [place][note 2]-38366 Level 4 Est. Patient 14:52:45 AUDIT MACHINE OPERATOR Baltazar Childers MD [facility] CPT-19600 Level 4 Est. Patient 14:18:34 AUDIT MACHINE OPERATOR Baltazar Childers MD [facility] CPT-55457 Level 4 Est. Patient 15:18:29 CDT Baltazar Childers MD [facility] [place][note 2]-95319 Level 3 Est. Patient 12:45:34 CDT Baltazar Childers MD [facility] [place][note 2]-26111 Level 3 Est. Patient 10:10:11 CDT Baltazar Childers MD [facility] CPT-75939 Level 3 Est. Patient 14:07:50 CDT Baltazar Childers MD [facility] CPT-21358 Level 4 Est. Patient 12:26:10 AUDIT MACHINE OPERATOR Baltazar Childers MD [facility] CPT-40682 Level 4 Est. Patient 14:45:38 CDT Baltazar Childers MD [facility] CPT-17398 Level 4 New Patient 12:30:48 CDT Baltazar hinton MD [facility] Procedures Code Procedure Name Date Entry Date Standard Desc ription CPT-72568 First Vx - Ix admin via ID I M or jet injects without counseling by physician 13:08:59 CDT CPT-80564 Fluzone Quadrivalent Intramuscular Suspe nsion 0.5 ML 13:08:59 CDT CPT-13625 Venipuncture Draw Fee 12:04:12 CDT CPT-93634 Lipid - LAB USE ONLY 17:39:15 AUDIT MACHINE OPERATOR 9 CPT-04065 HGBA1C - LAB USE ONLY 17:39:15 AUDIT MACHINE OPERATOR CPT-93875 CMP - LAB USE ONLY 17:39:14 AUDIT MACHINE OPERATOR CPT-63664 Venipuncture Draw Fee 17:39:14 AUDIT MACHINE OPERATOR CPT-61664 First Vx - Ix admin via ID I M or jet injects without counseling by physician 16:55:17 AUDIT MACHINE OPERATOR CPT-77798 Fluzone Quadrivalent Intramuscular Suspe nsion 0.5 ML 16:55:17 AUDIT MACHINE OPERATOR CPT-99464 Renal Panel - LAB USE ONLY 17:39:20 CDT 201 10/31/07 CPT-05806 CBC - LAB USE ONLY 17:39:20 CDT CPT-97542 Venipuncture Draw Fee 17:39:20 CDT CPT-96384 Venipuncture Draw Fee 14:33:30 CDT CPT-07635 Renal Panel - LAB USE ONLY 14:33:30 CDT 201 10/31/07 CPT-09338 CBC - LAB USE ONLY 14:33:29 CDT CPT-88451 Venipuncture Draw Fee 14:50:21 AUDIT MACHINE OPERATOR CPT-16369 Immunization Single Admin 17:35:35 CDT 2014 CPT-50802 Fluzone Quadrivalent preservative free ( >=3yrs.) 17:35:35 CDT CPT-11768 Venipuncture Draw Fee 12:10:27 AUDIT MACHINE OPERATOR CPT-99719 Fluzone Quadrivalent Intramuscular Suspe nsion 0.5 ML 10:49:13 CDT CPT-04211 First Vx Component - Ix admi n via ID IM or jet inj without physician counseling 15:17:19 AUDIT MACHINE OPERATOR CPT-81891 Pneumovax 23 15:17:19 AUDIT MACHINE OPERATOR CPT-40324 Pneumovax 14:52:45 AUDIT MACHINE OPERATOR CPT-89088 Venipuncture Draw Fee 14:06:30 AUDIT MACHINE OPERATOR CPT-000 Give Appropriate Flu Vaccine 14:18:34 AUDIT MACHINE OPERATOR 2 CPT-70155 Administration single or combination vac cine inc oral 14:46:00 AUDIT MACHINE OPERATOR CPT-18894 Influenza split virus > age 3 14:46:00 AUDIT MACHINE OPERATOR CPT-OV Office Visit 19:13:16 CDT CPT-89142 Zostavax 18:41:56 CDT CPT-60190 Administration single or combination vac cine inc oral 12:56:39 CDT CPT-97381 Zoster Vaccine (Zostavax) 12:56:39 CDT 2012 CPT-59710 Venipuncture Draw Fee 10:58:57 CDT CPT-31486 Sono pelvis non OB uterus ovaries cervix 17:45:04 CDT CPT-78502 Sono retroperitoneal complete kidneys an d bladder 17:14:36 CDT CPT-OV Office Visit 14:59:38 AUDIT MACHINE OPERATOR CPT-J1070 Depo Testosterone 100 mg 14:50:13 CDT 03/05 CPT-26922 Abx/Therapy Injection 14:50:13 CDT CPT-76576 Administration single or combination vac cine inc oral 14:34:43 CDT CPT-22360 Influenza split virus > age 3 14:34:43 CDT CPT-J1070 Depo Testosterone 100 mg 17:37:13 CDT 01/11 CPT-24133 Abx/Therapy Injection 17:37:13 CDT CPT-48154 Venipuncture Draw Fee 16:30:13 CDT CPT-30170 Venipuncture Draw Fee 16:29:43 CDT CPT-J1070 Depo Testosterone 100 mg 14:45:38 CDT 01/11
--- OUTSIDE RECORDS SUMMARY | 2019-10-27 12:49 | XMS REPORT | Clinical Summary ---
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 Benign neoplasm of colon PERIPHERAL NEUROPATHY [...] ronary atherosclerosis of unspecified type of vessel, [place] or graft OTH NONSPC ABN FINDNG [...] uterus, unspecified WELL WOMAN EXAMINATION V72.31 Active aGyathri aviles MD Routine gynecological examination Health screening V70.0 Active Baltazar Wayne Routine general medical examination at a health care facility Chronic pain syndrome 338.4 Active Baltazar Nickerson MD Chronic pain syndrome Chronic kidney disease stage III 585.3 Active 201 10/25/03 Elbamargarette Ryan KENDALL Chronic kidney disease, Stage III (moder ate) COLON POLYPS ICD-211.3 Inactive Lolis APR N Medication List Medication Instructions Start Date Stop Date Generic Name NDC Status Provider Patient Instruction NAPROXEN SODIUM 220 MG ORAL TABS 1 three times a day as needed 2 NAPROXEN SODIUM 38202324751 No Longer Active Baltazar Childers MD Active ATORVASTATIN CALCIUM 20 MG ORAL TABS Take 1 tab daily ATORVASTATIN CALCIUM 83618614622 Active KENDALL Juarez Active FUROSEMIDE 40 MG TABS Take one by mouth daily FUROSEMIDE 55348725327 Active Baltazar Childers MD Active LISINOPRIL 20 MG TABS Take one by mouth daily at bedtime LISINOPRIL 72302309365 Active KENDALL Juarez Active ONETOUCH ULTRA BLUE STRP Test twice a day GLUCO SE BLOOD 67419001583 No Longer Active Baltazar Childers MD Active TRUEPLUS LANCETS 33G MISC Test twice a day LANCET S 83849768209 Active KENDALL Juarez Active TRUEDRAW LANCING DEVICE MISC Test twice a day L ANCET DEVICES 56906524516 Active Baltazar Childers MD Active TRUETRACK TEST STRP Test twice a day GLUCOSE BLOO D 00513931506 Active Baltazar Childers MD Active TRUETRACK BLOOD GLUCOSE W/DEVICE KIT Test twice a day BLOOD GLUCOSE MONITORING SUPPL 31602553928 Active Baltazar Childers MD Activ e HYDROCODONE-ACETAMINOPHEN 7.5-325 MG TABS Take 1 tab every 6-8 hour s PRN HYDROCODONE-ACETAMINOPHEN 68174226322 Active Baltazar Childers MD Active NORTRIPTYLINE HCL 50 MG CAPS 1 every night for neuropathy 4 NORTRIPTYLINE HCL 70764145326 Active Baltazar Childers MD Acti ve GABAPENTIN 300 MG CAPS 1 three times a day GABAPE NTIN 58476815521 Active KENDALL Juarez Active GABAPENTIN 300 MG CAPS 1 po qd x 2 days, then 1 po BID x 2 d ays, then 1 po TID GABAPENTIN 89909767355 No Longer Active Baltazar silverman MD Active TRAMADOL HCL 50 MG TABS 1 twice a day as needed for pain TRAMADOL HCL 58991803684 Active Baltazar Childers MD Active NAPROXEN 500 MG TABS 1 tablet by mouth twice daily NAPROXEN 61921177980 No Longer Active Baltazar Childers MD Active PROAIR HFA 108 (90 BASE) MCG/ACT AERS 2 puffs four times a d ay as needed ALBUTEROL SULFATE 50150200313 Active KENDALL Juarez Active DEPO-TESTOSTERONE 200 MG/ML OIL as directed RUFINO TOSTERONE CYPIONATE 22596866541 No Longer Active Baltazar Childers MD Active LIPITOR 20 MG TABS Take one by mouth daily in evening ATORVASTATIN CALCIUM 54832631081 No Longer Active Baltazar Childers MD Activ e CRESTOR 10 MG TABS 1 by mouth every day R OSUVASTATIN CALCIUM 64627042947 No Longer Active Baltazar hCilders MD Activ e PHENTERMINE HCL 37.5 MG TABS Take one by mouth daily 2 PHENTERMINE HCL 36241500830 No Longer Active Baltazar Childers MD Activ e ROBAXIN-750 750 MG TABS Take one by mouth daily ME THOCARBAMOL 03644281420 Active Baltazar Childers MD Active TIZANIDINE HCL 4 MG TABS 1 daily as needed for muscle spasm 2011 TIZANIDINE HCL 62591542253 No Longer Active Dawna Salazar RN Active [id number] 50-325-40 MG TABS 1 four time s a day as needed for heacache [id number] 57296585815 Active Baltazar Childers MD Active SUMATRIPTAN SUCCINATE 100 MG TABS 1 tablet by mouth at onset of migraine as needed SUMATRIPTAN SUCCINATE 74011754152 Active KENDALL Juarez Active LORATADINE 10 MG TABS Take one by mouth daily LORATADINE 51235526571 Active Baltazar Childers MD Active OMEPRAZOLE 20 MG CPDR Take one by mouth daily OMEPRAZOLE 74554994546 Active Baltazar Childers MD Active HYDROXYZINE HCL 25 MG TABS Take one by mouth daily HYDROXYZINE HCL 32975292449 Active Baltazar Childers MD Active GLIPIZIDE 10 MG TABS 1 tablet by mouth twice daily GLIPIZIDE 05302404948 Active Bella Suarez APRN Active ALPRAZOLAM 1 MG TABS 1 tablet by mouth daily at bedtime for restles s leg ALPRAZOLAM 56738666899 Active Baltazar Childers MD Active METFORMIN HCL 1000 MG TABS Take one by mouth twice daily METFORMIN HCL 04294644901 Active Baltazar Childers MD Active TIZANIDINE HCL 4 MG TABS 1 daily as needed for muscle spasm 2011 TIZANIDINE HCL 4 MG TABS 466547 TIZANIDINE HCL Inactiv e PHENTERMINE HCL 37.5 MG TABS Take one by mouth daily 2 PHENTERMINE HCL 37.5 MG TABS 559569 PHENTERMINE HCL Inactive CRESTOR 10 MG TABS 1 by mouth every day C RESTOR 10 MG TABS ROSUVASTATIN CALCIUM Inactive LIPITOR 20 MG TABS Take one by mouth daily in evening LIPITOR 20 MG TABS 979325 ATORVASTATIN CALCIUM Inactive DEPO-TESTOSTERONE 200 MG/ML OIL as directed 8 DEPO-TESTOSTERONE 200 MG/ML OIL 455593 TESTOSTERONE CYPIONATE Inactive NAPROXEN 500 MG TABS 1 tablet by mouth twice daily 201 07/27/22 NAPROXEN 500 MG TABS 696619 NAPROXEN Inactive GABAPENTIN 300 MG CAPS 1 po qd x 2 days, then 1 po BID x 2 d ays, then 1 po TID GABAPENTIN 300 MG CAPS 357874 GABAPENTIN Inact amie ONETOUCH ULTRA BLUE STRP Test twice a day ONETOUCH ULTRA BLUE STRP GLUCOSE BLOOD Inactive NAPROXEN SODIUM 220 MG ORAL TABS 1 three times a day as needed 2 NAPROXEN SODIUM 220 MG ORAL TABS 392449 NAPROXEN SODIUM Inactive Immunizations Vaccine Administration Date Value Standard Floyd cription pneumococcal immunization administered Pneumovax 23 [CVX33] pneumococcal polysaccharide vaccine, 23 valent Seasonal influenza vaccine, injectable, containing preservative, for > 3 years old (Afluria, FluLaval, Fluzone, Fluvirin, Fluarix, Agriflu(>= 18 yo)) Fluzone (>3 yrs.) [[id number]] Influenza, seasonal, inject able Seasonal influenza vaccine, injectable, containing preservative, for > 3 years old (Afluria, FluLaval, Fluzone, Fluvirin, Fluarix, Agriflu(>= 18 yo)) Fluzone (>3 yrs.) [[id number]] Influenza, seasonal, inject able Vital Signs Date [...] Metabolic Panel - Chem istry calcium, serum 10.1 mg/dL 8.5-10.1 urea nitrogen, blood 23 mg/dL 7-18 creatinine, serum 2.00 mg/dL 0.60-1.30 blood glucose 132 mg/dL 65-110 carbon dioxide, venous blood 34.3 mmol/L 21.0-32 .0 chloride, serum 99 mmol/L 98-107 potassium, serum 4.9 mmol/L 3.5-5.2 sodium, serum 140 mmol/L 136-145 Lab Report: CBC, HGBA1C, Renal Panel - C hemistry hemoglobin A1C, blood, as % of total hemoglobin 7.9 % 4.3-6.0 sodium, serum 139 mmol/L 053-276 2971/02/04 potassium, serum 5.4 mmol/L 3.5-5.2 chloride, serum 99 mmol/L 98-107 carbon dioxide, venous blood 36.7 mmol/L 21.0-32 .0 creatinine, serum 2.02 mg/dL 0.55-1.30 blood glucose 181 mg/dL 65-110 urea nitrogen, blood 24 mg/dL 7-18 calcium, serum 9.4 mg/dL 8.5-10.1 Lab Report: CBC, HGBA1C, Renal Panel - H ematology erythrocyte (RBC) count 3.66 10^6/MM^3 10*6/mm3 4.04-5.4 8 hemoglobin, blood 11.7 g/dL 12.0-16.0 hematocrit, blood 35.6 % 36.0-46.0 mean corpuscular volume, RBC 97 fL 80-97 mean corpuscular hemoglobin, RBC 31.9 pg 27. 0-31.2 leukocyte count, blood 8.0 10^3/MM^3 10*3/mm3 4.6-10.2 mean corpuscular hemoglobin concentration, RBC 32.9 G/DL % 31.8-35.4 red blood cell distribution width 15.2 % 11 .6-14.8 platelet count 308 10^3/MM^3 10*3/mm3 142-424 Lab Report: Comp. Metabolic Panel, Lipid Panel - Chemistry sodium, serum 138 mmol/L 838-742 0520/11/23 carbon dioxide, venous blood 32.4 mmol/L 21.0-32 .0 potassium, serum 5.7 mmol/L 3.5-5.2 chloride, serum 98 mmol/L 98-107 blood glucose 136 mg/dL 65-110 urea nitrogen, blood 18 mg/dL 7-18 creatinine, serum 1.71 mg/dL 0.55-1.30 alanine aminotransferase (SGPT), serum 71 U/L 12-78 aspartate aminotransferase (SGOT), serum 34 U/L 15-37 calcium, serum 9.4 mg/dL 8.5-10.1 bilirubin, serum, total 0.40 mg/dL 0.00-1.00 cholesterol, serum 405 mg/dL 908-343 8084/11/23 triglyceride, serum, fasting 709 mg/dL 30-200 HDL [...] mg/dL Encounters Code Encounter Date Provider Facility CPT-07043 Level 4 Est. 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 Patient 15:42:12 CDT Baltazar Childers MD [facility] CPT-85077 Level 4 Est. Patient 11:29:55 CDT Baltazar Childers MD [facility] CPT-41477 Level 4 Est. Patient 14:15:19 CDT Baltazar Childers MD [facility] CPT-10767 Level 4 Est. Patient 12:20:13 CDT Baltazar Childers MD [facility] CPT-82695 Level 4 Est. Patient 14:52:45 MASTER CONTROL OPERATOR Baltazar Childers MD [facility] CPT-81882 Level 4 Est. Patient 14:18:34 MASTER CONTROL OPERATOR Baltazar Childers MD [facility] CPT-26787 Level 4 Est. Patient 15:18:29 CDT Baltazar Childers MD [facility] CPT-03485 Level 3 Est. Patient 12:45:34 CDT Baltazar Childers MD [facility] CPT-97400 Level 3 Est. Patient 10:10:11 CDT Baltazar Childers MD [facility] CPT-07577 Level 3 Est. Patient 14:07:50 CDT Baltazar Childers MD [facility] CPT-51077 Level 4 Est. Patient 12:26:10 MASTER CONTROL OPERATOR Baltazar Childers MD [facility] CPT-59962 Level 4 Est. Patient 14:45:38 CDT Baltazar Childers MD [facility] CPT-92422 Level 4 New Patient 12:30:48 CDT Baltazar hinton MD [facility] Procedures Code Procedure Name Date Entry Date Standard Desc ription CPT-96216 Venipuncture Draw Fee 14:50:21 MASTER CONTROL OPERATOR CPT-84784 Immunization Single Admin 17:35:35 CDT 2014 CPT-99821 Fluzone Quadrivalent preservative free ( >=3yrs.) 17:35:35 CDT CPT-97608 Venipuncture Draw Fee 12:10:27 MASTER CONTROL OPERATOR CPT-99858 Fluzone Quadrivalent Intramuscular Suspe nsion 0.5 ML 10:49:13 CDT CPT-68935 First Vx Component - Ix admi n via ID IM or jet inj without physician counseling 15:17:19 MASTER CONTROL OPERATOR CPT-68509 Pneumovax 23 15:17:19 MASTER CONTROL OPERATOR CPT-74604 Pneumovax 14:52:45 MASTER CONTROL OPERATOR CPT-66145 Venipuncture Draw Fee 14:06:30 MASTER CONTROL OPERATOR CPT-000 Give Appropriate Flu Vaccine 14:18:34 MASTER CONTROL OPERATOR 2 CPT-78159 Administration single or combination vac cine inc oral 14:46:00 MASTER CONTROL OPERATOR CPT-63072 Influenza split virus > age 3 14:46:00 MASTER CONTROL OPERATOR CPT-OV Office Visit 19:13:16 CDT CPT-08831 Zostavax 18:41:56 CDT CPT-19219 Administration single or combination vac cine inc oral 12:56:39 CDT CPT-45792 Zoster Vaccine (Zostavax) 12:56:39 CDT 2012 CPT-58146 Venipuncture Draw Fee 10:58:57 CDT CPT-26046 Sono pelvis non OB uterus ovaries cervix 17:45:04 CDT CPT-02233 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
--- OUTSIDE RECORDS SUMMARY | 2019-10-27 12:49 | XMS REPORT | Clinical Summary ---
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 Benign neoplasm of colon PERIPHERAL NEUROPATHY 356.9 [...] atherosclerosis of unspecified type of vessel, [place] or graft OTH NONSPC ABN FINDNG [...] 1 tab daily for HTN AMLODIPINE BESYLATE 49256126877 Active Ct Ledesma LPN Active SYNTHROID 0.1 MG TAB 1 tablet by mouth daily LE VOTHYROXINE SODIUM 64939101581 Active Carina Tucker LPN Active GLIPIZIDE 10 MG TAB take 2 tablets twice daily GLIPIZIDE 11848032488 Active Baltazar Childers MD Active SUCRALFATE 1 GM TABS 1 four times a day to coat the stomach 2015 SUCRALFATE 27882961279 No Longer Active Baltazar Childers MD Active PEN NEEDLES 31G X 6 MM MISC use 1 daily INSULIN PEN NEEDLE 51264069025 Active Bella Suarez TRUCK LOADER Active TOUJEO SOLOSTAR 300 UNIT/ML SC SOPN 10 units SC daily INSULIN GLARGINE 92433803571 No Longer Active Martita Godinez RMA Active LANTUS SOLOSTAR 100 UNIT/ML SC SOPN 10 units SC daily INSULIN GLARGINE 07360709944 Active Baltazar Childers MD Active NAPROXEN SODIUM 220 MG ORAL TABS 1 three times a day as needed 2 NAPROXEN SODIUM 87978806302 No Longer Active Baltazar Childers MD Active ATORVASTATIN CALCIUM 20 MG ORAL TABS Take 1 tab daily ATORVASTATIN CALCIUM 73767580128 Active Baltazar Childers MD Active FUROSEMIDE 40 MG TABS Take one by mouth daily FUROSEMIDE 15859654467 Active Baltazar Childers MD Active LISINOPRIL 20 MG TABS Take one by mouth daily at bedtime LISINOPRIL 69769532657 No Longer Active Baltazar Childers MD Active ONETOUCH ULTRA BLUE STRP Test twice a day GLUCO SE BLOOD 65527184829 No Longer Active Baltazar Childers MD Active TRUEPLUS LANCETS 33G MISC Test twice a day LANCET S 09735121924 Active KENDALL Juarez Active TRUEDRAW LANCING DEVICE MISC Test twice a day L ANCET DEVICES 09106911177 Active Baltazar Childers MD Active TRUETRACK TEST STRP Test twice a day GLUCOSE BLOO D 35371660564 Active KENDALL Juarez Active TRUETRACK BLOOD GLUCOSE W/DEVICE KIT Test twice a day BLOOD GLUCOSE MONITORING SUPPL 70188155630 Active Baltazar Childers MD Activ e HYDROCODONE-ACETAMINOPHEN 7.5-325 MG TABS Take 1 tab every 6-8 hour s PRN HYDROCODONE-ACETAMINOPHEN 28202916673 Active Baltazar Childers MD Active NORTRIPTYLINE HCL 50 MG CAPS 1 every night for neuropathy 4 NORTRIPTYLINE HCL 28781833243 Active Baltazar Childers MD Acti ve GABAPENTIN 300 MG CAPS 1 three times a day GABAPE NTIN 24808874899 Active Baltazar Childers MD Active GABAPENTIN 300 MG CAPS 1 po qd x 2 days, then 1 po BID x 2 d ays, then 1 po TID GABAPENTIN 60453645191 No Longer Active Baltazar silverman MD Active TRAMADOL HCL 50 MG TABS 1 twice a day as needed for pain TRAMADOL HCL 83005117333 Active Baltazar Childers MD Active NAPROXEN 500 MG TABS 1 tablet by mouth twice daily NAPROXEN 41327037625 No Longer Active Baltazar Childers MD Active PROAIR HFA 108 (90 BASE) MCG/ACT AERS 2 puffs four times a d ay as needed ALBUTEROL SULFATE 45491338502 Active Baltazar Childers MD Active DEPO-TESTOSTERONE 200 MG/ML OIL as directed RUFINO TOSTERONE CYPIONATE 81620576507 No Longer Active Baltazar Childers MD Active LIPITOR 20 MG TABS Take one by mouth daily in evening ATORVASTATIN CALCIUM 69905446736 No Longer Active Baltazar Childers MD Activ e CRESTOR 10 MG TABS 1 by mouth every day R OSUVASTATIN CALCIUM 49479303181 No Longer Active Baltazar Childers MD Activ e PHENTERMINE HCL 37.5 MG TABS Take one by mouth daily 2 PHENTERMINE HCL 26451959226 No Longer Active Baltazar Childers MD Activ e ROBAXIN-750 750 MG TABS Take one by mouth daily ME THOCARBAMOL 72152772042 Active Baltazar Childers MD Active TIZANIDINE HCL 4 MG TABS 1 daily as needed for muscle spasm 2011 TIZANIDINE HCL 37332373607 No Longer Active Dawna Salazar RN Active [id number] 50-325-40 MG TABS 1 four time s a day as needed for heacache [id number] 63195736576 Active Baltazar Childers MD Active SUMATRIPTAN SUCCINATE 100 MG TABS 1 tablet by mouth at onset of migraine as needed SUMATRIPTAN SUCCINATE 13261632891 Active Shonna richey APRN Active LORATADINE 10 MG TABS Take one by mouth daily LORATADINE 49650872723 Active Bethrenetta Carr CÉSARBetsey Active OMEPRAZOLE 20 MG CPDR Take one by mouth daily OMEPRAZOLE 30711892783 Active Baltazar Childers MD Active HYDROXYZINE HCL 25 MG TABS Take one by mouth daily HYDROXYZINE HCL 09182003467 Active Baltazar Childers MD Active ALPRAZOLAM 1 MG TABS 1 tablet by mouth daily at bedtime for restles s leg ALPRAZOLAM 58053737182 Active Baltazar Childers MD Active METFORMIN HCL 1000 MG TABS Take one by mouth twice daily METFORMIN HCL 33008983730 Active Baltazar Childers MD Active TIZANIDINE HCL 4 MG TABS 1 daily as needed for muscle spasm 2011 TIZANIDINE HCL 4 MG TABS 766584 TIZANIDINE HCL Inactiv e PHENTERMINE HCL 37.5 MG TABS Take one by mouth daily 2 PHENTERMINE HCL 37.5 MG TABS 378758 PHENTERMINE HCL Inactive CRESTOR 10 MG TABS 1 by mouth every day C RESTOR 10 MG TABS 921369 ROSUVASTATIN CALCIUM Inactive LIPITOR 20 MG TABS Take one by mouth daily in evening LIPITOR 20 MG TABS 491789 ATORVASTATIN CALCIUM Inactive DEPO-TESTOSTERONE 200 MG/ML OIL as directed 8 DEPO-TESTOSTERONE 200 MG/ML OIL 611034 TESTOSTERONE CYPIONATE Inactive NAPROXEN 500 MG TABS 1 tablet by mouth twice daily 201 07/27/22 NAPROXEN 500 MG TABS 016100 NAPROXEN Inactive GABAPENTIN 300 MG CAPS 1 po qd x 2 days, then 1 po BID x 2 d ays, then 1 po TID GABAPENTIN 300 MG CAPS 039315 GABAPENTIN Inact amie ONETOUCH ULTRA BLUE STRP Test twice a day ONETOUCH ULTRA BLUE STRP GLUCOSE BLOOD Inactive NAPROXEN SODIUM 220 MG ORAL TABS 1 three times a day as needed 2 NAPROXEN SODIUM 220 MG ORAL TABS 495513 NAPROXEN SODIUM Inactive TOUJEO SOLOSTAR 300 UNIT/ML SC SOPN 10 units SC daily TOUJEO SOLOSTAR 300 UNIT/ML SC SOPN INSULIN GLARGINE Inac tive SUCRALFATE 1 GM TABS 1 four times a day to coat the stomach 2015 SUCRALFATE 1 GM TABS 500796 SUCRALFATE Inactive Immunizations Vaccine Administration Date Value Standard Floyd cription pneumococcal immunization administered Pneumovax 23 [CVX33] pneumococcal polysaccharide vaccine, 23 valent Seasonal influenza vaccine, injectable, containing preservative, for > 3 years old (Afluria, FluLaval, Fluzone, Fluvirin, Fluarix, Agriflu(>= 18 yo)) Fluzone (>3 yrs.) [[id number]] Influenza, seasonal, inject able Seasonal influenza vaccine, injectable, containing preservative, for > 3 years old (Afluria, FluLaval, Fluzone, Fluvirin, Fluarix, Agriflu(>= 18 yo)) Fluzone (>3 yrs.) [UPO912] Influenza, seasonal, inject able Vital Signs Date [...] C - Chemistry sodium, serum 143 mmol/L 023-650 4678/06/19 potassium, serum 5.9 mmol/L 3.5-5.2 chloride, serum [...] Panel - Chemistry sodium, serum 143 mmol/L 513-923 3362/12/19 carbon dioxide, venous blood 32.5 mmol/L 21.0-32 .0 potassium, serum 4.9 mmol/L 3.5-5.2 chloride, serum 101 mmol/L 98-107 blood glucose 129 mg/dL 65-110 urea nitrogen, blood 18 mg/dL 7-18 creatinine, serum 1.79 mg/dL 0.55-1.30 alanine aminotransferase (SGPT), serum 34 U/L 12-78 aspartate aminotransferase (SGOT), serum 26 U/L 15-37 calcium, serum 8.9 mg/dL 8.5-10.1 bilirubin, serum, total 0.30 mg/dL 0.00-1.00 cholesterol, serum 214 mg/dL 196-587 7240/12/19 triglyceride, serum, fasting 351 mg/dL 30-200 HDL [...] 4.9 mmol/L 3.5-5.2 sodium, serum 141 mmol/L 610-892 0521/08/08 blood glucose 193 mg/dL 65-110 urea nitrogen, blood 30 mg/dL 7-18 calcium, serum 9.8 mg/dL 8.5-10.1 Encounters Code Encounter Date Provider Facility CPT-75191 Level 4 Est. Patient 14:22:31 CDT Baltazar Childers MD [facility] CPT-18077 Level 4 Est. Patient 15:44:38 [facility] Level 4 Est. Patient 11:34:17 CDT Baltazar Childers MD [facility] CPT-06054 Level 3 Est. Patient 16:40:40 CDT Baltazar Childers MD [facility] CPT-78409 Level 4 Est. Patient 10:41:24 CDT Baltazar Childers MD [facility] CPT-80659 Level 4 Est. Patient 16:01:48 CDT Baltazar Childers MD [facility] CPT-11143 Level 4 Est. 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 Patient 15:42:12 CDT Baltazar Childers MD [facility] CPT-89432 Level 4 Est. Patient 11:29:55 CDT Baltazar Childers MD [facility] CPT-54672 Level 4 Est. Patient 14:15:19 CDT Baltazar Childers MD [facility] CPT-25569 Level 4 Est. Patient 12:20:13 CDT Baltazar Childers MD [facility] CPT-25368 Level 4 Est. Patient 14:52:45 [employer]S ASSEM[employer]ER Baltazar Childers MD [facility] CPT-44776 Level 4 Est. Patient 14:18:34 [employer] ASSEM[employer]ER Baltazar Childers MD [facility] CPT-43810 Level 4 Est. Patient 15:18:29 CDT Baltazar Childers MD [facility] CPT-79731 Level 3 Est. Patient 12:45:34 CDT Baltazar Childers MD [facility] CPT-43784 Level 3 Est. Patient 10:10:11 CDT Baltazar Childers MD [facility] CPT-72796 Level 3 Est. Patient 14:07:50 CDT Baltazar Childers MD [facility] CPT-97484 Level 4 Est. Patient 12:26:10 [employer] AS[employer]ER Baltazar Childers MD [facility] CPT-73476 Level 4 Est. Patient 14:45:38 CDT Baltazar Childers MD [facility] CPT-66677 Level 4 New Patient 12:30:48 CDT Baltazar hinton MD [facility] Procedures Code Procedure Name Date Entry Date Standard Desc ription CPT-08713 Lipid - LAB USE ONLY 17:39:15 [employer]ER 9 CPT-66772 HGBA1C - LAB USE ONLY 17:39:15 [employer] CPT-38209 CMP - LAB USE ONLY 17:39:14 [employer] CPT-58531 Venipuncture Draw Fee 17:39:14 [employer] CPT-96434 First Vx - Ix admin via ID I M or jet injects without counseling by physician 16:55:17 [employer] CPT-20663 Fluzone Quadrivalent Intramuscular Suspe nsion 0.5 ML 16:55:17 [employer] CPT-12232 Renal Panel - LAB USE ONLY 17:39:20 CDT 201 10/31/07 CPT-76651 CBC - LAB USE ONLY 17:39:20 CDT CPT-93931 Venipuncture Draw Fee 17:39:20 CDT CPT-71063 Venipuncture Draw Fee 14:33:30 CDT CPT-23598 Renal Panel - LAB USE ONLY 14:33:30 CDT 201 10/31/07 CPT-66779 CBC - LAB USE ONLY 14:33:29 CDT CPT-34818 Venipuncture Draw Fee 14:50:21 [employer] CPT-44696 Immunization Single Admin 17:35:35 CDT 2014 CPT-62849 Fluzone Quadrivalent preservative free ( >=3yrs.) 17:35:35 CDT CPT-38413 Venipuncture Draw Fee 12:10:27 [employer]ER CPT-53755 Fluzone Quadrivalent Intramuscular Suspe nsion 0.5 ML 10:49:13 CDT CPT-40014 First Vx Component - Ix admi n via ID IM or jet inj without physician counseling 15:17:19 [employer] CPT-00901 Pneumovax 23 15:17:19 [employer] CPT-84764 Pneumovax 14:52:45 [employer] CPT-71177 Venipuncture Draw Fee 14:06:30 [employer] CPT-000 Give Appropriate Flu Vaccine 14:18:34 [employer]ER 2 CPT-42090 Administration single or combination vac cine inc oral 14:46:00 [employer] CPT-01072 Influenza split virus > age 3 14:46:00 [employer] CPT-OV Office Visit 19:13:16 CDT CPT-85225 Zostavax 18:41:56 CDT CPT-86333 Administration single or combination vac cine inc oral 12:56:39 CDT CPT-84833 Zoster Vaccine (Zostavax) 12:56:39 CDT 2012 CPT-38390 Venipuncture Draw Fee 10:58:57 CDT CPT-95476 Sono pelvis non OB uterus ovaries cervix 17:45:04 CDT CPT-53465 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
--- OUTSIDE RECORDS SUMMARY | 2019-10-27 12:49 | XMS REPORT | Clinical Summary ---
Author Author Admin, Elba Lance [facility] Address Unknown Phone Unavailable Allergies, 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 [employer] Benign neoplasm of colon PERIPHERAL NEUROPATHY 356.9 Active Baltazar Nickerson MD Unspecified hereditary and idiopathic peripheral neuropathy PERSONAL HISTORY OF COLONIC POLYPS V12.72 Active 2 Lolis Thomas [employer] Personal history of colonic polyps PARESTHESIA, HANDS [...] a day for neuropathy 2 NORTRIPTYLINE HCL 70333787097 Active Baltazar Childers MD Acti ve ASPIRIN 81 MG TBEC Take one (1) tablet by mouth daily ASPIRIN 02292581869 Active Baltazar Childers MD Active GABAPENTIN 300 MG ORAL CAPSULE 1 three times a day 201 12/03/26 GABAPENTIN 84993291419 No Longer Active Baltazar Childers MD Activ e LISINOPRIL 20 MG ORAL TABLET 1 tablet by mouth daily at night 2016 LISINOPRIL 21327605983 Active Baltazar Childers MD Active ZITHROMAX Z-ISAIAS 250 MG ORAL TABLET Take two tablets to day and then 1 tablet daily for 4 days AZITHROMYCIN 85842342072 No Longer A ctive Baltazar Childers MD Active LANTUS SOLOSTAR 100 UNIT/ML SUBCUTANEOUS SOLUTION PEN- INJECTOR 30 units SC daily INSULIN GLARGINE 97023835189 Active Baltazar Childers MD Active AMLODIPINE BESYLATE 5 MG ORAL TABLET 1 tab daily for HTN AMLODIPINE BESYLATE 52964391729 Active Baltazar Childers MD Active SYNTHROID 100 MCG ORAL TABLET 1 tablet by mouth daily LEVOTHYROXINE SODIUM 74065652560 Active Baltazar Childers MD Active GLIPIZIDE 10 MG ORAL TABLET take 2 tablets twice daily GLIPIZIDE 42787668557 Active Baltazar Childers MD Active SUCRALFATE 1 GM ORAL TABLET 1 four times a day to coat the stoma ch SUCRALFATE 04469247169 No Longer Active Baltazar Childers MD Active PEN NEEDLES 31G X 6 MM use 1 daily INSULIN PEN NE EDLE 55728529975 Active KENDALL Juarez Active TOUJEO SOLOSTAR 300 UNIT/ML SUBCUTANEOUS SOLUTION PEN- INJECTOR 10 units SC daily INSULIN GLARGINE 94380221920 No Longer Active Rola hayes Herbert RMA Active NAPROXEN SODIUM 220 MG ORAL TABLET 1 three times a day as needed NAPROXEN SODIUM 34476763547 No Longer Active Baltazar Childers MD Active ATORVASTATIN CALCIUM 20 MG ORAL TABLET Take 1 tab daily ATORVASTATIN CALCIUM 23539254797 Active Baltazar Childers MD A ctive FUROSEMIDE 40 MG ORAL TABLET Take one by mouth daily FUROSEMIDE 51920577705 Active Baltazar Childers MD Active LISINOPRIL 20 MG ORAL TABLET Take one by mouth daily at bedtime LISINOPRIL 33791195819 No Longer Active Baltazar Childers MD Active ONETOUCH ULTRA BLUE IN VITRO STRIP Test twice a day 07/11/11 GLUCOSE BLOOD 37968688385 No Longer Active Baltazar Childers MD Acti ve TRUEPLUS LANCETS 33G Test twice a day LANCETS 0051704 9580 Active KENDALL Juarez Active TRUEDRAW LANCING DEVICE Test twice a day LANCET DEVICES 58264563225 Active Baltazar Childers MD Active TRUETRACK TEST IN VITRO STRIP Test twice a day GLUCOSE BLOOD 82802776511 Active Baltazar Childers MD Active TRUETRACK BLOOD GLUCOSE w/Device KIT Test twice a day BLOOD GLUCOSE MONITORING SUPPL 36674942084 Active Baltazar Childers MD Activ e HYDROCODONE-ACETAMINOPHEN 7.5-325 MG ORAL TABLET Take 1 tab every 6-8 hours PRN HYDROCODONE-ACETAMINOPHEN 89290357470 Active Baltazar Nickerson MD Active GABAPENTIN 300 MG ORAL CAPSULE 1 po qd x 2 days, then 1 po BID x 2 days, then 1 po TID GABAPENTIN 16142454232 No Longer Active Baltazar Childers MD Active TRAMADOL HCL 50 MG ORAL TABLET 1 twice a day as needed for pain 201 07/27/28 TRAMADOL HCL 49838430272 Active Baltazar Childers MD Active NAPROXEN 500 MG ORAL TABLET 1 tablet by mouth twice daily NAPROXEN 61137822394 No Longer Active Baltazar Childers MD Active PROAIR HFA 108 (90 Base) MCG/ACT INHALATION AEROSOL SO LUTION 2 puffs four times a day as needed ALBUTEROL SULFATE 05264006861 Active R gilberto Childers MD Active DEPO-TESTOSTERONE 200 MG/ML INTRAMUSCULAR SOLUTION as directed TESTOSTERONE CYPIONATE 76685998763 No Longer Active Baltazar Childers MD Active LIPITOR 20 MG ORAL TABLET Take one by mouth daily in evening ATORVASTATIN CALCIUM 30271192950 No Longer Active Baltazar Childers MD Active CRESTOR 10 MG ORAL TABLET 1 by mouth every day ROSUVASTATIN CALCIUM 68764665029 No Longer Active Baltazar Childers MD Active PHENTERMINE HCL 37.5 MG ORAL TABLET Take one by mouth daily PHENTERMINE HCL 73337274539 No Longer Active Baltazar Childers MD Ac tive ROBAXIN-750 750 MG ORAL TABLET Take one by mouth daily METHOCARBAMOL 83425998613 Active KENDALL Juarez Active TIZANIDINE HCL 4 MG ORAL TABLET 1 daily as needed for muscle spa sm TIZANIDINE HCL 74909327727 No Longer Active Dawna Salazar RN Active [id number] 50-325-40 MG ORAL TABLET 1 fo ur times a day as needed for heacache [id number] 80045262429 Active Baltazar Childers MD Active SUMATRIPTAN SUCCINATE 100 MG ORAL TABLET 1 tablet by m outh at onset of migraine as needed SUMATRIPTAN SUCCINATE 86834091658 Active KENDALL Restrepo Active LORATADINE 10 MG ORAL TABLET Take one by mouth daily LORATADINE 40914620244 Active KENDALL Juarez Active OMEPRAZOLE 20 MG ORAL CAPSULE DELAYED RELEASE Take one by mouth jostin ly OMEPRAZOLE 18669387128 Active Baltazar Childers MD Active HYDROXYZINE HCL 25 MG ORAL TABLET Take one by mouth daily HYDROXYZINE HCL 87241288412 Active Baltazar Childers MD Active ALPRAZOLAM 1 MG ORAL TABLET 1 tablet by mouth daily at bedti me for restless leg ALPRAZOLAM 39777218079 Active Baltazar Childres MD Active METFORMIN HCL 1000 MG ORAL TABLET Take one by mouth twice daily METFORMIN HCL 29316084789 Active Baltazar Childers MD Active TIZANIDINE HCL 4 MG ORAL TABLET 1 daily as needed for muscle spa sm TIZANIDINE HCL 4 MG ORAL TABLET 252586 TIZANIDINE HCL Inactive PHENTERMINE HCL 37.5 MG ORAL TABLET Take one by mouth daily PHENTERMINE HCL 37.5 MG ORAL TABLET 257000 PHENTERMINE HCL Inac tive CRESTOR 10 MG ORAL TABLET 1 by mouth every day CRESTOR 10 MG ORAL TABLET 466429 ROSUVASTATIN CALCIUM Inactive LIPITOR 20 MG ORAL TABLET Take one by mouth daily in evening LIPITOR 20 MG ORAL TABLET 946377 ATORVASTATIN CALCIUM Inactive DEPO-TESTOSTERONE 200 MG/ML INTRAMUSCULAR SOLUTION as directed DEPO-TESTOSTERONE 200 MG/ML INTRAMUSCULAR SOLUTION 476848 RUFINO TOSTERONE CYPIONATE Inactive NAPROXEN 500 MG ORAL TABLET 1 tablet by mouth twice daily NAPROXEN 500 MG ORAL TABLET 328951 NAPROXEN Inactive GABAPENTIN 300 MG ORAL CAPSULE 1 po qd x 2 days, then 1 po BID x 2 days, then 1 po TID GABAPENTIN 300 MG ORAL CAPSULE 047953 GABAP ENTIN Inactive ONETOUCH ULTRA BLUE IN VITRO STRIP Test twice a day 07/11/11 ONETOUCH ULTRA BLUE IN VITRO STRIP GLUCOSE BLOOD Inact amie NAPROXEN SODIUM 220 MG ORAL TABLET 1 three times a day as needed NAPROXEN SODIUM 220 MG ORAL TABLET 696344 NAPROXEN SODI UM Inactive TOUJEO SOLOSTAR 300 UNIT/ML SUBCUTANEOUS SOLUTION PEN- INJECTOR 10 units SC daily TOUJEO SOLOSTAR 300 UNIT/ML SUBCUTANEOUS SOLUTION PEN-INJECTOR INSULIN GLARGINE Inactive SUCRALFATE 1 GM ORAL TABLET 1 four times a day to coat the stoma ch SUCRALFATE 1 GM ORAL TABLET 526337 SUCRALFATE Inac tive GABAPENTIN 300 MG ORAL CAPSULE 1 three times a day 201 12/03/26 GABAPENTIN 300 MG ORAL CAPSULE 358247 GABAPENTIN Inactive ZITHROMAX Z-ISAIAS 250 MG ORAL TABLET Take two tablets to day and then 1 tablet daily for 4 days ZITHROMAX Z-ISAIAS 250 MG ORAL TAB LET 344598 AZITHROMYCIN Inactive Immunizations Vaccine Administration Date Value Standard Floyd cription pneumococcal immunization administered Pneumovax 23 [CVX33] pneumococcal polysaccharide vaccine, 23 valent Seasonal influenza vaccine, injectable, containing preservative, for > 3 years old (Afluria, FluLaval, Fluzone, Fluvirin, Fluarix, Agriflu(>= 18 yo)) Fluzone (>3 yrs.) [[id number]] Influenza, seasonal, inject able Seasonal influenza vaccine, injectable, containing preservative, for > 3 years old (Afluria, FluLaval, Fluzone, Fluvirin, Fluarix, Agriflu(>= 18 yo)) Fluzone (>3 yrs.) [KQB104] Influenza, seasonal, inject able Vital Signs Date [...] - Chem istry sodium, serum 139 mmol/L 820-790 1847/10/03 potassium, serum 4.7 mmol/L 3.5-5.2 chloride, serum 98 mmol/L 98-107 carbon dioxide, venous blood 28.7 mmol/L 21.0-32 .0 blood glucose 218 mg/dL 65-110 calcium, serum 9.8 mg/dL 8.5-10.1 urea nitrogen, blood 19 mg/dL 7-18 creatinine, serum 1.68 mg/dL 0.60-1.30 sodium, serum 139 mmol/L 449-949 9557/06/26 potassium, serum 4.8 mmol/L 3.5-5.2 chloride, serum 102 mmol/L 98-107 carbon dioxide, venous blood 29.1 mmol/L 21.0-32 .0 blood glucose 179 mg/dL 65-95 calcium, serum 9.7 mg/dL 8.5-10.1 urea nitrogen, blood 31 mg/dL 7-18 creatinine, serum 1.97 mg/dL 0.60-1.30 Lab Report: CBC, Renal Panel - Chemistry sodium, serum 142 mmol/L 188-757 2865/08/11 potassium, serum 4.8 mmol/L 3.5-5.2 chloride, serum [...] (L) - Chemistry cholesterol, serum 209 mg/dL 439-480 5262/12/27 triglyceride, serum, fasting 329 mg/dL 30-200 HDL cholesterol, serum 56 mg/dL 32-60 LDL cholesterol, serum 87 mg/dL 0-130 TSH 3.60 m[iU]/mL 0.36-3.74 Office Visit: Meds Check - Toxicology drug screen, urine, qualitative negative Encounters Code Encounter Date Provider Facility [facility]-[id number] Vst-Est Level V 14:26:27 CDT Aneudy Childers MD [facility]-19217 Level 4 Est. Patient 17:05:37 CDT Baltazar Childers MD [facility] CPT-22092 Level 4 Est. Patient 16:21:19 SENIOR COMPENSATION CONSULTANT Baltazar Childers MD [facility]-60465 Level 4 Est. Patient 12:25:11 CDT Baltazar Childers MD [facility] CPT-51861 Level 4 Est. Patient 14:22:31 CDT Baltazar Childers MD [facility]-77207 Level 4 Est. Patient 15:44:38 CDT [facility] Level 4 Est. Patient 11:34:17 CDT Baltazar Childers MD [facility] CPT-31147 Level 3 Est. Patient 16:40:40 CDT Baltazar Childers MD [facility] CPT-58691 Level 4 Est. Patient 10:41:24 CDT Baltazar Childers MD [facility] CPT-15911 Level 4 Est. Patient 16:01:48 CDT Baltazar Childers MD [facility] CPT-26775 Level 4 Est. Patient 16:54:07 SENIOR COMPENSATION CONSULTANT Baltazar Childers MD [facility]-13882 Level 4 Est. Patient 15:42:12 CDT Baltazar Childers MD [facility] CPT-93080 Level 4 Est. Patient 11:29:55 CDT Baltazar Childers MD [facility] CPT-19849 Level 4 Est. Patient 14:15:19 CDT Baltazar Childers MD [facility] CPT-68133 Level 4 Est. Patient 12:20:13 CDT Baltazar Childers MD [facility] CPT-28843 Level 4 Est. Patient 14:52:45 SENIOR COMPENSATION CONSULTANT Baltazar Childers MD [facility] CPT-17438 Level 4 Est. Patient 14:18:34 SENIOR COMPENSATION CONSULTANT Baltazar Childers MD [facility] CPT-69889 Level 4 Est. Patient 15:18:29 CDT Baltazar Childers MD [facility] CPT-66340 Level 3 Est. Patient 12:45:34 CDT Baltazar Childers MD [facility] CPT-84196 Level 3 Est. Patient 10:10:11 CDT Baltazar Childers MD [facility] CPT-38021 Level 3 Est. Patient 14:07:50 CDT Baltazar Childers MD [facility] CPT-06547 Level 4 Est. Patient 12:26:10 SENIOR COMPENSATION CONSULTANT Baltazar Childers MD [facility] CPT-38793 Level 4 Est. Patient 14:45:38 CDT Baltazar Childers MD [facility] CPT-02105 Level 4 New Patient 12:30:48 CDT Baltazar hinton MD [facility] Procedures Code Procedure Name Date Entry Date Standard Desc ription CPT-000 Give Appropriate Flu Vaccine 12:25:14 CDT 2 CPT-26700 First Vx - Ix admin via ID I M or jet injects without counseling by physician 13:08:59 CDT CPT-02552 Fluzone Quadrivalent Intramuscular Suspe nsion 0.5 ML 13:08:59 CDT CPT-32215 Venipuncture Draw Fee 12:04:12 CDT CPT-08824 Lipid - LAB USE ONLY 17:39:15 SENIOR COMPENSATION CONSULTANT 9 CPT-93725 HGBA1C - LAB USE ONLY 17:39:15 SENIOR COMPENSATION CONSULTANT CPT-24761 CMP - LAB USE ONLY 17:39:14 SENIOR COMPENSATION CONSULTANT CPT-15177 Venipuncture Draw Fee 17:39:14 SENIOR COMPENSATION CONSULTANT CPT-90945 First Vx - Ix admin via ID I M or jet injects without counseling by physician 16:55:17 SENIOR COMPENSATION CONSULTANT CPT-32438 Fluzone Quadrivalent Intramuscular Suspe nsion 0.5 ML 16:55:17 SENIOR COMPENSATION CONSULTANT CPT-36821 Renal Panel - LAB USE ONLY 17:39:20 CDT 201 10/31/07 CPT-52645 CBC - LAB USE ONLY 17:39:20 CDT CPT-32277 Venipuncture Draw Fee 17:39:20 CDT CPT-80195 Venipuncture Draw Fee 14:33:30 CDT CPT-99062 Renal Panel - LAB USE ONLY 14:33:30 CDT 201 10/31/07 CPT-32041 CBC - LAB USE ONLY 14:33:29 CDT CPT-55762 Venipuncture Draw Fee 14:50:21 SENIOR COMPENSATION CONSULTANT CPT-91479 Immunization Single Admin 17:35:35 CDT 2014 CPT-73943 Fluzone Quadrivalent preservative free ( >=3yrs.) 17:35:35 CDT CPT-51966 Venipuncture Draw Fee 12:10:27 SENIOR COMPENSATION CONSULTANT CPT-09354 Fluzone Quadrivalent Intramuscular Suspe nsion 0.5 ML 10:49:13 CDT CPT-90077 First Vx Component - Ix admi n via ID IM or jet inj without physician counseling 15:17:19 SENIOR COMPENSATION CONSULTANT CPT-90046 Pneumovax 23 15:17:19 SENIOR COMPENSATION CONSULTANT CPT-61780 Pneumovax 14:52:45 SENIOR COMPENSATION CONSULTANT CPT-12489 Venipuncture Draw Fee 14:06:30 SENIOR COMPENSATION CONSULTANT CPT-000 Give Appropriate Flu Vaccine 14:18:34 SENIOR COMPENSATION CONSULTANT 2 CPT-99070 Administration single or combination vac cine inc oral 14:46:00 SENIOR COMPENSATION CONSULTANT CPT-34981 Influenza split virus > age 3 14:46:00 SENIOR COMPENSATION CONSULTANT CPT-OV Office Visit 19:13:16 CDT CPT-02386 Zostavax 18:41:56 CDT CPT-71170 Administration single or combination vac cine inc oral 12:56:39 CDT CPT-48449 Zoster Vaccine (Zostavax) 12:56:39 CDT 2012 CPT-29636 Venipuncture Draw Fee 10:58:57 CDT CPT-33965 Sono pelvis non OB uterus ovaries cervix 17:45:04 CDT CPT-32345 Sono retroperitoneal complete kidneys an d bladder 17:14:36 CDT CPT-OV Office Visit 14:59:38 SENIOR COMPENSATION CONSULTANT CPT-J1070 Depo Testosterone 100 mg 14:50:13 CDT 03/05 CPT-70495 Abx/Therapy Injection 14:50:13 CDT CPT-27427 Administration single or combination vac cine inc oral 14:34:43 CDT CPT-08817 Influenza split virus > age 3 14:34:43 CDT CPT-J1070 Depo Testosterone 100 mg 17:37:13 CDT 01/11 CPT-27096 Abx/Therapy Injection 17:37:13 CDT CPT-31746 Venipuncture Draw Fee 16:30:13 CDT CPT-38549 Venipuncture Draw Fee 16:29:43 CDT CPT-J1070 Depo Testosterone 100 mg 14:45:38 CDT 01/11
--- OUTSIDE RECORDS SUMMARY | 2019-10-27 12:50 | XMS REPORT | Clinical Summary ---
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 Benign neoplasm of colon PERIPHERAL NEUROPATHY [...] ronary atherosclerosis of unspecified type of vessel, robinson or graft OTH NONSPC ABN FINDNG RAD&OTH [...] 1 tab daily for HTN AMLODIPINE BESYLATE 39132332843 Active KENDALL Juarez Active SYNTHROID 0.1 MG TAB 1 tablet by mouth daily LE VOTHYROXINE SODIUM 18715908026 Active Shonna Parker APRN Active GLIPIZIDE 10 MG TAB take 2 tablets twice daily GLIPIZIDE 69090116597 Active Baltazar Childers MD Active SUCRALFATE 1 GM TABS 1 four times a day to coat the stomach 2015 SUCRALFATE 47700021534 No Longer Active Baltazar Childers MD Active PEN NEEDLES 31G X 6 MM MISC use 1 daily INSULIN PEN NEEDLE 29539444314 Active Gato Rae MD Active TOUJEO SOLOSTAR 300 UNIT/ML SC SOPN 10 units SC daily INSULIN GLARGINE 75712627058 No Longer Active [place] ARGUETA Active LANTUS SOLOSTAR 100 UNIT/ML SC SOPN 10 units SC daily INSULIN GLARGINE 50463781678 Active KENDALL Juarez Active NAPROXEN SODIUM 220 MG ORAL TABS 1 three times a day as needed 2 NAPROXEN SODIUM 85091296194 No Longer Active Baltazar Childers MD Active ATORVASTATIN CALCIUM 20 MG ORAL TABS Take 1 tab daily ATORVASTATIN CALCIUM 75145278516 Active Baltazar Childers MD Active FUROSEMIDE 40 MG TABS Take one by mouth daily FUROSEMIDE 03643638756 Active Baltazar Childers MD Active LISINOPRIL 20 MG TABS Take one by mouth daily at bedtime LISINOPRIL 33749764365 No Longer Active Baltazar Childers MD Active ONETOUCH ULTRA BLUE STRP Test twice a day GLUCO SE BLOOD 82944415910 No Longer Active Baltazar Childers MD Active TRUEPLUS LANCETS 33G MISC Test twice a day LANCET S 50337566640 Active KENDALL Juarez Active TRUEDRAW LANCING DEVICE MISC Test twice a day L ANCET DEVICES 07970738447 Active Baltazar Childers MD Active TRUETRACK TEST STRP Test twice a day GLUCOSE BLOO D 95170928544 Active KENDALL Juarez Active TRUETRACK BLOOD GLUCOSE W/DEVICE KIT Test twice a day BLOOD GLUCOSE MONITORING SUPPL 29689709451 Active Baltazar Childers MD Activ e HYDROCODONE-ACETAMINOPHEN 7.5-325 MG TABS Take 1 tab every 6-8 hour s PRN HYDROCODONE-ACETAMINOPHEN 53450335202 Active Baltazar Childers MD Active NORTRIPTYLINE HCL 50 MG CAPS 1 every night for neuropathy 4 NORTRIPTYLINE HCL 58186562967 Active Baltazar Childers MD Acti ve GABAPENTIN 300 MG CAPS 1 three times a day GABAPE NTIN 88438333012 Active Baltazar Childers MD Active GABAPENTIN 300 MG CAPS 1 po qd x 2 days, then 1 po BID x 2 d ays, then 1 po TID GABAPENTIN 42718053388 No Longer Active Baltazar silverman MD Active TRAMADOL HCL 50 MG TABS 1 twice a day as needed for pain TRAMADOL HCL 97590177797 Active Baltazar Childers MD Active NAPROXEN 500 MG TABS 1 tablet by mouth twice daily NAPROXEN 49969138787 No Longer Active Baltazar Childers MD Active PROAIR HFA 108 (90 BASE) MCG/ACT AERS 2 puffs four times a d ay as needed ALBUTEROL SULFATE 84215224072 Active Baltazar Childers MD Active DEPO-TESTOSTERONE 200 MG/ML OIL as directed RUFINO TOSTERONE CYPIONATE 59199587817 No Longer Active Baltazar Childers MD Active LIPITOR 20 MG TABS Take one by mouth daily in evening ATORVASTATIN CALCIUM 18126521948 No Longer Active Baltazar Childers MD Activ e CRESTOR 10 MG TABS 1 by mouth every day R OSUVASTATIN CALCIUM 76212559812 No Longer Active Baltazar Childers MD Activ e PHENTERMINE HCL 37.5 MG TABS Take one by mouth daily 2 PHENTERMINE HCL 05892564110 No Longer Active Baltazar Childers MD Activ e ROBAXIN-750 750 MG TABS Take one by mouth daily ME THOCARBAMOL 55617556232 Active Baltazar Childers MD Active TIZANIDINE HCL 4 MG TABS 1 daily as needed for muscle spasm 2011 TIZANIDINE HCL 15459778497 No Longer Active Dawna Salazar RN Active [id number] 50-325-40 MG TABS 1 four time s a day as needed for heacache [id number] 28428598143 Active Baltazar Childers MD Active SUMATRIPTAN SUCCINATE 100 MG TABS 1 tablet by mouth at onset of migraine as needed SUMATRIPTAN SUCCINATE 89326909118 Active Shonna richey APRN Active LORATADINE 10 MG TABS Take one by mouth daily LORATADINE 70462318145 Active Beth Carr CÉSARTung Active OMEPRAZOLE 20 MG CPDR Take one by mouth daily OMEPRAZOLE 51319983995 Active Baltazar Childers MD Active HYDROXYZINE HCL 25 MG TABS Take one by mouth daily HYDROXYZINE HCL 79481780430 Active Baltazar Childers MD Active ALPRAZOLAM 1 MG TABS 1 tablet by mouth daily at bedtime for restles s leg ALPRAZOLAM 59111440461 Active Baltazar Childers MD Active METFORMIN HCL 1000 MG TABS Take one by mouth twice daily METFORMIN HCL 39777114370 Active Baltazar Childers MD Active TIZANIDINE HCL 4 MG TABS 1 daily as needed for muscle spasm 2011 TIZANIDINE HCL 4 MG TABS 209002 TIZANIDINE HCL Inactiv e PHENTERMINE HCL 37.5 MG TABS Take one by mouth daily 2 PHENTERMINE HCL 37.5 MG TABS 286392 PHENTERMINE HCL Inactive CRESTOR 10 MG TABS 1 by mouth every day C RESTOR 10 MG TABS 042676 ROSUVASTATIN CALCIUM Inactive LIPITOR 20 MG TABS Take one by mouth daily in evening LIPITOR 20 MG TABS 584796 ATORVASTATIN CALCIUM Inactive DEPO-TESTOSTERONE 200 MG/ML OIL as directed 8 DEPO-TESTOSTERONE 200 MG/ML OIL 301312 TESTOSTERONE CYPIONATE Inactive NAPROXEN 500 MG TABS 1 tablet by mouth twice daily 201 07/27/22 NAPROXEN 500 MG TABS 230880 NAPROXEN Inactive GABAPENTIN 300 MG CAPS 1 po qd x 2 days, then 1 po BID x 2 d ays, then 1 po TID GABAPENTIN 300 MG CAPS 823020 GABAPENTIN Inact amie ONETOUCH ULTRA BLUE STRP Test twice a day ONETOUCH ULTRA BLUE STRP GLUCOSE BLOOD Inactive NAPROXEN SODIUM 220 MG ORAL TABS 1 three times a day as needed 2 NAPROXEN SODIUM 220 MG ORAL TABS 778590 NAPROXEN SODIUM Inactive TOUJEO SOLOSTAR 300 UNIT/ML SC SOPN 10 units SC daily TOUJEO SOLOSTAR 300 UNIT/ML SC SOPN INSULIN GLARGINE Inac tive SUCRALFATE 1 GM TABS 1 four times a day to coat the stomach 2015 SUCRALFATE 1 GM TABS 827143 SUCRALFATE Inactive Immunizations Vaccine Administration Date Value Standard Floyd cription pneumococcal immunization administered Pneumovax 23 [CVX33] pneumococcal polysaccharide vaccine, 23 valent Seasonal influenza vaccine, injectable, containing preservative, for > 3 years old (Afluria, FluLaval, Fluzone, Fluvirin, Fluarix, Agriflu(>= 18 yo)) Fluzone (>3 yrs.) [[id number]] Influenza, seasonal, inject able Seasonal influenza vaccine, injectable, containing preservative, for > 3 years old (Afluria, FluLaval, Fluzone, Fluvirin, Fluarix, Agriflu(>= 18 yo)) Fluzone (>3 yrs.) [[id number]] Influenza, seasonal, inject able Vital Signs Date [...] C - Chemistry sodium, serum 143 mmol/L 944-737 7448/06/19 potassium, serum 5.9 mmol/L 3.5-5.2 chloride, serum 105 mmol/L 98-107 carbon dioxide, venous blood 30.2 mmol/L 21.0-32 .0 blood glucose 189 mg/dL 65-110 calcium, serum 9.7 mg/dL 8.5-10.1 urea nitrogen, blood 37 mg/dL 7-18 creatinine, serum 2.11 mg/dL 0.55-1.30 hemoglobin A1C, blood, as % of total hemoglobin 8.2 % 4.3-6.0 Lab Report: CBC, Renal Panel - Chemistry sodium, serum 142 mmol/L 293-275 7037/08/11 potassium, serum 4.8 mmol/L 3.5-5.2 chloride, serum [...] Panel - Chemistry sodium, serum 143 mmol/L 380-257 7288/12/19 carbon dioxide, venous blood 32.5 mmol/L 21.0-32 .0 potassium, serum 4.9 mmol/L 3.5-5.2 chloride, serum 101 mmol/L 98-107 blood glucose 129 mg/dL 65-110 urea nitrogen, blood 18 mg/dL 7-18 creatinine, serum 1.79 mg/dL 0.55-1.30 alanine aminotransferase (SGPT), serum 34 U/L 12-78 aspartate aminotransferase (SGOT), serum 26 U/L 15-37 calcium, serum 8.9 mg/dL 8.5-10.1 bilirubin, serum, total 0.30 mg/dL 0.00-1.00 cholesterol, serum 214 mg/dL 067-165 2247/12/19 triglyceride, serum, fasting 351 mg/dL 30-200 HDL [...] 4.3-6.0 Encounters Code Encounter Date Provider Facility CPT-86597 Level 4 Est. Patient 14:22:31 CDT Baltazar Childers MD [facility] CPT-25722 Level 4 Est. Patient 15:44:38 CDT Shonna Parker APRN [facility] CPT-55292 Level 4 Est. Patient 11:34:17 CDT Baltazar Childers MD [facility] CPT-81016 Level 3 Est. Patient 16:40:40 CDT Baltazar Childers MD [facility] CPT-74586 Level 4 Est. Patient 10:41:24 CDT Baltazar Childers MD [facility] CPT-55275 Level 4 Est. Patient 16:01:48 CDT Baltazar Childers MD [facility] CPT-85145 Level 4 Est. Patient 16:54:07 ROTOR ASSEMBLER Baltazar Childers MD [facility] CPT-88033 Level 4 Est. Patient 15:42:12 CDT Baltazar Childers MD [facility] CPT-16564 Level 4 Est. Patient 11:29:55 CDT Baltazar Childers MD [facility] CPT-05127 Level 4 Est. Patient 14:15:19 CDT Baltazar Childers MD [facility] CPT-11139 Level 4 Est. Patient 12:20:13 CDT Baltazar Childers MD [facility] CPT-11377 Level 4 Est. Patient 14:52:45 ROTOR ASSEMBLER Baltazar Childers MD [facility] CPT-08555 Level 4 Est. Patient 14:18:34 ROTOR ASSEMBLER Baltazar Childers MD [facility] CPT-60706 Level 4 Est. Patient 15:18:29 CDT Baltazar Childers MD [facility] CPT-55754 Level 3 Est. Patient 12:45:34 CDT Baltazar Childers MD [facility] CPT-34825 Level 3 Est. Patient 10:10:11 CDT Baltazar Childers MD [facility] CPT-46067 Level 3 Est. Patient 14:07:50 CDT Baltazar Childers MD [facility] CPT-72382 Level 4 Est. Patient 12:26:10 ROTOR ASSEMBLER Baltazar Childers MD [facility] CPT-82389 Level 4 Est. Patient 14:45:38 CDT Baltazar Childers MD [facility] CPT-73766 Level 4 New Patient 12:30:48 CDT Baltazar hinton MD [facility] Procedures Code Procedure Name Date Entry Date Standard Desc ription CPT-35209 Venipuncture Draw Fee 12:04:12 CDT CPT-07333 Lipid - LAB USE ONLY 17:39:15 ROTOR ASSEMBLER 9 CPT-89046 HGBA1C - LAB USE ONLY 17:39:15 ROTOR ASSEMBLER CPT-73226 CMP - LAB USE ONLY 17:39:14 ROTOR ASSEMBLER CPT-33123 Venipuncture Draw Fee 17:39:14 ROTOR ASSEMBLER CPT-54284 First Vx - Ix admin via ID I M or jet injects without counseling by physician 16:55:17 ROTOR ASSEMBLER CPT-21010 Fluzone Quadrivalent Intramuscular Suspe nsion 0.5 ML 16:55:17 ROTOR ASSEMBLER CPT-11325 Renal Panel - LAB USE ONLY 17:39:20 CDT 201 10/31/07 CPT-01176 CBC - LAB USE ONLY 17:39:20 CDT CPT-23333 Venipuncture Draw Fee 17:39:20 CDT CPT-71464 Venipuncture Draw Fee 14:33:30 CDT CPT-09563 Renal Panel - LAB USE ONLY 14:33:30 CDT 201 10/31/07 CPT-27201 CBC - LAB USE ONLY 14:33:29 CDT CPT-25078 Venipuncture Draw Fee 14:50:21 ROTOR ASSEMBLER CPT-99533 Immunization Single Admin 17:35:35 CDT 2014 CPT-43717 Fluzone Quadrivalent preservative free ( >=3yrs.) 17:35:35 CDT CPT-21579 Venipuncture Draw Fee 12:10:27 ROTOR ASSEMBLER CPT-23274 Fluzone Quadrivalent Intramuscular Suspe nsion 0.5 ML 10:49:13 CDT CPT-90483 First Vx Component - Ix admi n via ID IM or jet inj without physician counseling 15:17:19 ROTOR ASSEMBLER CPT-47652 Pneumovax 23 15:17:19 ROTOR ASSEMBLER CPT-17367 Pneumovax 14:52:45 ROTOR ASSEMBLER CPT-12113 Venipuncture Draw Fee 14:06:30 ROTOR ASSEMBLER CPT-000 Give Appropriate Flu Vaccine 14:18:34 ROTOR ASSEMBLER 2 CPT-86857 Administration single or combination vac cine inc oral 14:46:00 ROTOR ASSEMBLER CPT-52308 Influenza split virus > age 3 14:46:00 ROTOR ASSEMBLER CPT-OV Office Visit 19:13:16 CDT CPT-28150 Zostavax 18:41:56 CDT CPT-35675 Administration single or combination vac cine inc oral 12:56:39 CDT CPT-61578 Zoster Vaccine (Zostavax) 12:56:39 CDT 2012 CPT-32080 Venipuncture Draw Fee 10:58:57 CDT CPT-98867 Sono pelvis non OB uterus ovaries cervix 17:45:04 CDT CPT-14487 Sono retroperitoneal complete kidneys an d bladder 17:14:36 CDT CPT-OV Office Visit 14:59:38 ROTOR ASSEMBLER CPT-J1070 Depo Testosterone 100 mg 14:50:13 CDT 03/05 CPT-19528 Abx/Therapy Injection 14:50:13 CDT CPT-42502 Administration single or combination vac cine inc oral 14:34:43 CDT CPT-82722 Influenza split virus > age 3 14:34:43 CDT CPT-J1070 Depo Testosterone 100 mg 17:37:13 CDT 01/11 CPT-44689 Abx/Therapy Injection 17:37:13 CDT CPT-49352 Venipuncture Draw Fee 16:30:13 CDT CPT-17389 Venipuncture Draw Fee 16:29:43 CDT CPT-J1070 Depo Testosterone 100 mg 14:45:38 CDT 01/11
--- OUTSIDE RECORDS SUMMARY | 2019-10-27 12:50 | XMS REPORT | Clinical Summary ---
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 Benign neoplasm of colon PERIPHERAL NEUROPATHY 356.9 [...] MISC Test twice a day LANCET S 43219069913 Active Baltazar Childers MD Active TRUEDRAW LANCING DEVICE MISC Test twice a day L ANCET DEVICES 23734855919 Active Baltazar Childers MD Active TRUETRACK TEST STRP Test twice a day GLUCOSE BLOO D 03227342178 Active Baltazar Childers MD Active TRUETRACK BLOOD GLUCOSE W/DEVICE KIT Test twice a day BLOOD GLUCOSE MONITORING SUPPL 81374902539 Active Bella Suarez AERIAL INSTALLER Active HYDROCODONE-ACETAMINOPHEN 7.5-325 MG TABS Take 1 tab every 6-8 hour s PRN HYDROCODONE-ACETAMINOPHEN 58872475737 Active Baltazar Childers MD Active NORTRIPTYLINE HCL 50 MG CAPS 1 every night for neuropathy 4 NORTRIPTYLINE HCL 07824670054 Active Baltazar Childers MD Acti ve GABAPENTIN 300 MG CAPS 1 three times a day GABAPE NTIN 27730823437 Active Baltazar Childers MD Active GABAPENTIN 300 MG CAPS 1 po qd x 2 days, then 1 po BID x 2 d ays, then 1 po TID GABAPENTIN 89173802757 No Longer Active Baltazar silverman MD Active TRAMADOL HCL 50 MG TABS 1 twice a day as needed for pain TRAMADOL HCL 09969654968 Active Baltazar Childers MD Active NAPROXEN 500 MG TABS 1 tablet by mouth twice daily NAPROXEN 13449955219 No Longer Active Baltazar Childers MD Active PROAIR HFA 108 (90 BASE) MCG/ACT AERS 2 puffs four times a d ay as needed ALBUTEROL SULFATE 06030494688 Active Baltazar Childers MD Active DEPO-TESTOSTERONE 200 MG/ML OIL as directed RUFINO TOSTERONE CYPIONATE 54313144100 No Longer Active Baltazar Childers MD Active LIPITOR 20 MG TABS Take one by mouth daily in evening ATORVASTATIN CALCIUM 28212332121 No Longer Active Baltazar Childers MD Activ e CRESTOR 10 MG TABS 1 by mouth every day R OSUVASTATIN CALCIUM 04658845650 No Longer Active Baltazar Childers MD Activ e PHENTERMINE HCL 37.5 MG TABS Take one by mouth daily 2 PHENTERMINE HCL 86978171588 No Longer Active Baltazar Childers MD Activ e ROBAXIN-750 750 MG TABS Take one by mouth daily ME THOCARBAMOL 24437356304 Active Baltazar Childers MD Active TIZANIDINE HCL 4 MG TABS 1 daily as needed for muscle spasm 2011 TIZANIDINE HCL 74173318735 No Longer Active Dawna Salazar RN Active ONETOUCH ULTRA BLUE STRP Test twice a day GLUCO SE BLOOD 60270730415 Active Baltazar Childers MD Active [id number]-[id number]-SLVGTQKJ 50-325-40 MG TABS 1 four time s a day as needed for heacache [id number] 11412769615 Active Baltazar Childers MD Active SUMATRIPTAN SUCCINATE 100 MG TABS 1 tablet by mouth at onset of migraine as needed SUMATRIPTAN SUCCINATE 46313175716 Active Baltazar barron MD Active LORATADINE 10 MG TABS Take one by mouth daily LORATADINE 64920352787 Active Baltazar Childers MD Active FUROSEMIDE 40 MG TABS Take one by mouth daily FUROSEMIDE 54892644629 Active Baltazar Childers MD Active LISINOPRIL 20 MG TABS Take one by mouth daily at bedtime LISINOPRIL 97531790233 Active Baltazar Childers MD Active OMEPRAZOLE 20 MG CPDR Take one by mouth daily OMEPRAZOLE 93767138155 Active Baltazar Childers MD Active HYDROXYZINE HCL 25 MG TABS Take one by mouth daily HYDROXYZINE HCL 01689221776 Active Baltazar Childers MD Active GLIPIZIDE 10 MG TABS 1 tablet by mouth twice daily GLIPIZIDE 83092620015 Active Baltazar Childers MD Active ALPRAZOLAM 1 MG TABS 1 tablet by mouth daily at bedtime for restles s leg ALPRAZOLAM 71247825759 Active Baltazar Childers MD Active METFORMIN HCL 1000 MG TABS Take one by mouth twice daily METFORMIN HCL 98878349752 Active Baltazar Childers MD Active TIZANIDINE HCL 4 MG TABS 1 daily as needed for muscle spasm 2011 TIZANIDINE HCL 4 MG TABS 100740 TIZANIDINE HCL Inactiv e PHENTERMINE HCL 37.5 MG TABS Take one by mouth daily 2 PHENTERMINE HCL 37.5 MG TABS 410543 PHENTERMINE HCL Inactive CRESTOR 10 MG TABS 1 by mouth every day C RESTOR 10 MG TABS ROSUVASTATIN CALCIUM Inactive LIPITOR 20 MG TABS Take one by mouth daily in evening LIPITOR 20 MG TABS 606587 ATORVASTATIN CALCIUM Inactive DEPO-TESTOSTERONE 200 MG/ML OIL as directed 8 DEPO-TESTOSTERONE 200 MG/ML OIL 734718 TESTOSTERONE CYPIONATE Inactive NAPROXEN 500 MG TABS 1 tablet by mouth twice daily 201 07/27/22 NAPROXEN 500 MG TABS 680543 NAPROXEN Inactive GABAPENTIN 300 MG CAPS 1 po qd x 2 days, then 1 po BID x 2 d ays, then 1 po TID GABAPENTIN 300 MG CAPS 537963 GABAPENTIN Inact amie Immunizations Vaccine Administration Date Value Standard Floyd cription pneumococcal immunization administered Pneumovax 23 [CVX33] pneumococcal polysaccharide vaccine, 23 valent Seasonal influenza vaccine, injectable, containing preservative, for > 3 years old (Afluria, FluLaval, Fluzone, Fluvirin, Fluarix, Agriflu(>= 18 yo)) Fluzone (>3 yrs.) [ETU657] Influenza, seasonal, inject able Seasonal influenza vaccine, injectable, containing preservative, for > 3 years old (Afluria, FluLaval, Fluzone, Fluvirin, Fluarix, Agriflu(>= 18 yo)) Fluzone (>3 yrs.) [GVH954] Influenza, seasonal, inject able Vital Signs Date [...] - Chem istry sodium, serum 140 mmol/L 132-098 6783/05/05 potassium, serum 4.9 mmol/L 3.5-5.2 chloride, serum [...] Panel - Chemistry sodium, serum 139 mmol/L 568-707 0675/01/20 potassium, serum 5.3 mmol/L 3.5-5.2 chloride, serum [...] mg/g mg/g{creat} 0-29 cholesterol, serum 319 mg/dL 653-352 3472/08/21 triglyceride, serum, fasting 546 mg/dL 30-200 HDL cholesterol, serum 39 mg/dL 32-96 LDL cholesterol, serum 167.00 mg/dL 5.00-130.00 hemoglobin A1C, blood, as % of total hemoglobin 7.7 % 4.3-6.0 sodium, serum 138 mmol/L 610-689 1873/08/21 potassium, serum 4.3 mmol/L 3.5-5.2 chloride, serum [...] 0-19 Encounters Code Encounter Date Provider Facility CPT-79690 Level 4 Est. Patient 11:29:55 CDT Baltazar Childers MD [facility] CPT-19728 Level 4 Est. Patient 14:15:19 CDT Baltazar Childers MD [facility] CPT-32150 Level 4 Est. Patient 12:20:13 CDT Baltazar Childers MD [facility] CPT-25634 Level 4 Est. Patient 14:52:45 PARLIAMENTARY ARCHIVIST Baltazar Childers MD [facility] CPT-24882 Level 4 Est. Patient 14:18:34 PARLIAMENTARY ARCHIVIST Baltazar Childers MD [facility] CPT-63763 Level 4 Est. Patient 15:18:29 CDT Baltazar Childers MD [facility] CPT-01947 Level 3 Est. Patient 12:45:34 CDT Baltazar Childers MD [facility] CPT-65823 Level 3 Est. Patient 10:10:11 CDT Baltazar Childers MD [facility] CPT-80380 Level 3 Est. Patient 14:07:50 CDT Baltazar Childers MD [facility] CPT-42251 Level 4 Est. Patient 12:26:10 PARLIAMENTARY ARCHIVIST Baltazar Childers MD [facility] CPT-94398 Level 4 Est. Patient 14:45:38 CDT Baltazar Childers MD [facility] CPT-99762 Level 4 New Patient 12:30:48 CDT Baltazar hinton MD [facility] Procedures Code Procedure Name Date Entry Date Standard Desc ription CPT-78465 Venipuncture Draw Fee 12:10:27 PARLIAMENTARY ARCHIVIST CPT-60277 Fluzone Quadrivalent Intramuscular Suspe nsion 0.5 ML 10:49:13 CDT CPT-74986 First Vx Component - Ix admi n via ID IM or jet inj without physician counseling 15:17:19 PARLIAMENTARY ARCHIVIST CPT-48327 Pneumovax 15:17:19 PARLIAMENTARY ARCHIVIST CPT-46352 Pneumovax 14:52:45 PARLIAMENTARY ARCHIVIST CPT-43429 Venipuncture Draw Fee 14:06:30 PARLIAMENTARY ARCHIVIST CPT-000 Give Appropriate Flu Vaccine 14:18:34 PARLIAMENTARY ARCHIVIST 2 CPT-60821 Administration single or combination vac cine inc oral 14:46:00 PARLIAMENTARY ARCHIVIST CPT-30723 Influenza split virus > age 3 14:46:00 PARLIAMENTARY ARCHIVIST CPT-OV Office Visit 19:13:16 CDT CPT-20144 Zostavax 18:41:56 CDT CPT-56258 Administration single or combination vac cine inc oral 12:56:39 CDT CPT-00300 Zoster Vaccine (Zostavax) 12:56:39 CDT 2012 CPT-24272 Venipuncture Draw Fee 10:58:57 CDT CPT-39194 Sono pelvis non OB uterus ovaries cervix 17:45:04 CDT CPT-60568 Sono retroperitoneal complete kidneys an d bladder 17:14:36 CDT CPT-OV Office Visit 14:59:38 PARLIAMENTARY ARCHIVIST CPT-J1070 Depo Testosterone 100 mg 14:50:13 CDT 03/05 CPT-43033 Abx/Therapy Injection 14:50:13 CDT CPT-22600 Administration single or combination vac cine inc oral 14:34:43 CDT CPT-16664 Influenza split virus > age 3 14:34:43 CDT CPT-J1070 Depo Testosterone 100 mg 17:37:13 CDT 01/11 CPT-02643 Abx/Therapy Injection 17:37:13 CDT CPT-95768 Venipuncture Draw Fee 16:30:13 CDT CPT-73508 Venipuncture Draw Fee 16:29:43 CDT CPT-J1070 Depo Testosterone 100 mg 14:45:38 CDT 01/11
--- OUTSIDE RECORDS SUMMARY | 2019-10-27 12:50 | XMS REPORT | Clinical Summary ---
Author Author Admin, Elba Lance [facility]Drim[facility] Address Unknown Phone Unavailable Allergies, Adverse Reactions, 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 FASHION MODEL Benign neoplasm of colon PERIPHERAL NEUROPATHY 356.9 [...] ronary atherosclerosis of unspecified type of vessel, [place] or graft OTH NONSPC ABN FINDNG RAD&OTH [...] Routine gynecological examination Health screening V70.0 Active Baltaazr Wayne Routine general medical examination at a [...] tablet by mouth daily LE VOTHYROXINE SODIUM 57246157608 Active Carina Tucker LPN Active GLIPIZIDE 10 MG TAB take 2 tablets twice daily GLIPIZIDE 67746718881 Active Carina Tucker LPN Active SUCRALFATE 1 GM TABS 1 four times a day to coat the stomach 2015 SUCRALFATE 14422497928 No Longer Active Baltazar Childers MD Active PEN NEEDLES 31G X 6 MM MISC use 1 daily INSULIN PEN NEEDLE 64595866399 Active Bella Suarez FASHION MODEL Active TOURINKUO SOLOSTAR 300 UNIT/ML SC SOPN 10 units SC daily INSULIN GLARGINE 10486262981 No Longer Active Martita Godinez KENDALL Active LANTUS SOLOSTAR 100 UNIT/ML SC SOPN 10 units SC daily INSULIN GLARGINE 51187110299 Active Baltazar Childers MD Active NAPROXEN SODIUM 220 MG ORAL TABS 1 three times a day as needed 2 NAPROXEN SODIUM 20550105120 No Longer Active Baltazar Childers MD Active ATORVASTATIN CALCIUM 20 MG ORAL TABS Take 1 tab daily ATORVASTATIN CALCIUM 15282064166 Active Baltazar Childers MD Active FUROSEMIDE 40 MG TABS Take one by mouth daily FUROSEMIDE 02929494771 Active Baltazar Childers MD Active LISINOPRIL 20 MG TABS Take one by mouth daily at bedtime LISINOPRIL 45966939940 Active KENDALL Juarez Active ONETOUCH ULTRA BLUE STRP Test twice a day GLUCO SE BLOOD 18811677562 No Longer Active Baltazar Childers MD Active TRUEPLUS LANCETS 33G MISC Test twice a day LANCET S 49443358903 Active KENDALL Juarez Active TRUEDRAW LANCING DEVICE MISC Test twice a day L ANCET DEVICES 10538744342 Active Baltazar Childers MD Active TRUETRACK TEST STRP Test twice a day GLUCOSE BLOO D 21717151547 Active KENDALL Juarez Active TRUETRACK BLOOD GLUCOSE W/DEVICE KIT Test twice a day BLOOD GLUCOSE MONITORING SUPPL 29663505429 Active Baltazar Childers MD Activ e HYDROCODONE-ACETAMINOPHEN 7.5-325 MG TABS Take 1 tab every 6-8 hour s PRN HYDROCODONE-ACETAMINOPHEN 37023992808 Active Shonna Parker APRN Active NORTRIPTYLINE HCL 50 MG CAPS 1 every night for neuropathy 4 NORTRIPTYLINE HCL 56238314751 Active Baltazar Childers MD Acti ve GABAPENTIN 300 MG CAPS 1 three times a day GABAPE NTIN 71420593195 Active KENDALL Juarez Active GABAPENTIN 300 MG CAPS 1 po qd x 2 days, then 1 po BID x 2 d ays, then 1 po TID GABAPENTIN 18879965175 No Longer Active Baltazar silverman MD Active TRAMADOL HCL 50 MG TABS 1 twice a day as needed for pain TRAMADOL HCL 44027254045 Active Shonna Parker APRN Active NAPROXEN 500 MG TABS 1 tablet by mouth twice daily NAPROXEN 82278460997 No Longer Active Baltazar Childers MD Active PROAIR HFA 108 (90 BASE) MCG/ACT AERS 2 puffs four times a d ay as needed ALBUTEROL SULFATE 62562911010 Active KENDALL Juarez Active DEPO-TESTOSTERONE 200 MG/ML OIL as directed RUFINO TOSTERONE CYPIONATE 55241271892 No Longer Active Baltazar Childers MD Active LIPITOR 20 MG TABS Take one by mouth daily in evening ATORVASTATIN CALCIUM 54001184282 No Longer Active Baltazar Childers MD Activ e CRESTOR 10 MG TABS 1 by mouth every day R OSUVASTATIN CALCIUM 14105402141 No Longer Active Baltazar Childers MD Activ e PHENTERMINE HCL 37.5 MG TABS Take one by mouth daily 2 PHENTERMINE HCL 48814041672 No Longer Active Baltazar Childers MD Activ e ROBAXIN-750 750 MG TABS Take one by mouth daily ME THOCARBAMOL 55494689700 Active Baltazar Childers MD Active TIZANIDINE HCL 4 MG TABS 1 daily as needed for muscle spasm 2011 TIZANIDINE HCL 27172237246 No Longer Active Dawna Salazar RN Active YDDRYPHBRM-LVZZ-MYJHJUCV 50-325-40 MG TABS 1 four time s a day as needed for heacache JOLOYWRRBW-GLRX-LSSZRLFE 40271033806 Active Shonna Parker APRN Active SUMATRIPTAN SUCCINATE 100 MG TABS 1 tablet by mouth at onset of migraine as needed SUMATRIPTAN SUCCINATE 71050842267 Active Shonna Villaseñor er FASHION MODEL Active LORATADINE 10 MG TABS Take one by mouth daily LORATADINE 74526547113 Active KENDALL Juarez Active OMEPRAZOLE 20 MG CPDR Take one by mouth daily OMEPRAZOLE 43702984647 Active KENDALL Juarez Active HYDROXYZINE HCL 25 MG TABS Take one by mouth daily HYDROXYZINE HCL 65378186170 Active Baltazar Childers MD Active ALPRAZOLAM 1 MG TABS 1 tablet by mouth daily at bedtime for restles s leg ALPRAZOLAM 51546549041 Active Baltazar Childers MD Active METFORMIN HCL 1000 MG TABS Take one by mouth twice daily METFORMIN HCL 75272201483 Active KENDALL Juarez Active TIZANIDINE HCL 4 MG TABS 1 daily as needed for muscle spasm 2011 TIZANIDINE HCL 4 MG TABS 186819 TIZANIDINE HCL Inactiv e PHENTERMINE HCL 37.5 MG TABS Take one by mouth daily 2 PHENTERMINE HCL 37.5 MG TABS 515103 PHENTERMINE HCL Inactive CRESTOR 10 MG TABS 1 by mouth every day C RESTOR 10 MG TABS 092902 ROSUVASTATIN CALCIUM Inactive LIPITOR 20 MG TABS Take one by mouth daily in evening LIPITOR 20 MG TABS 237336 ATORVASTATIN CALCIUM Inactive DEPO-TESTOSTERONE 200 MG/ML OIL as directed 8 DEPO-TESTOSTERONE 200 MG/ML OIL 147456 TESTOSTERONE CYPIONATE Inactive NAPROXEN 500 MG TABS 1 tablet by mouth twice daily 201 07/27/22 NAPROXEN 500 MG TABS 933222 NAPROXEN Inactive GABAPENTIN 300 MG CAPS 1 po qd x 2 days, then 1 po BID x 2 d ays, then 1 po TID GABAPENTIN 300 MG CAPS 730566 GABAPENTIN Inact amie ONETOUCH ULTRA BLUE STRP Test twice a day ONETOUCH ULTRA BLUE STRP GLUCOSE BLOOD Inactive NAPROXEN SODIUM 220 MG ORAL TABS 1 three times a day as needed 2 NAPROXEN SODIUM 220 MG ORAL TABS 885521 NAPROXEN SODIUM Inactive TOUJEO SOLOSTAR 300 UNIT/ML SC SOPN 10 units SC daily TOUJEO SOLOSTAR 300 UNIT/ML SC SOPN INSULIN GLARGINE Inac tive SUCRALFATE 1 GM TABS 1 four times a day to coat the stomach 2015 SUCRALFATE 1 GM TABS 152367 SUCRALFATE Inactive Immunizations Vaccine Administration Date Value Standard Floyd cription pneumococcal immunization administered Pneumovax 23 [CVX33] pneumococcal polysaccharide vaccine, 23 valent Seasonal influenza vaccine, injectable, containing preservative, for > 3 years old (Afluria, FluLaval, Fluzone, Fluvirin, Fluarix, Agriflu(>= 18 yo)) Fluzone (>3 yrs.) [SEI357] Influenza, seasonal, inject able Seasonal influenza vaccine, injectable, containing preservative, for > 3 years old (Afluria, FluLaval, Fluzone, Fluvirin, Fluarix, Agriflu(>= 18 yo)) Fluzone (>3 yrs.) [[id number]] Influenza, seasonal, inject able Vital Signs Date [...] C - Chemistry sodium, serum 139 mmol/L 829-269 3192/07/07 potassium, serum 4.5 mmol/L 3.5-5.2 chloride, serum [...] Panel - Chemistry sodium, serum 143 mmol/L 513-776 8801/12/19 carbon dioxide, venous blood 32.5 mmol/L 21.0-32 .0 potassium, serum 4.9 mmol/L 3.5-5.2 chloride, serum 101 mmol/L 98-107 blood glucose 129 mg/dL 65-110 urea nitrogen, blood 18 mg/dL 7-18 creatinine, serum 1.79 mg/dL 0.55-1.30 alanine aminotransferase (SGPT), serum 34 U/L 12-78 aspartate aminotransferase (SGOT), serum 26 U/L 15-37 calcium, serum 8.9 mg/dL 8.5-10.1 bilirubin, serum, total 0.30 mg/dL 0.00-1.00 cholesterol, serum 214 mg/dL 349-670 2787/12/19 triglyceride, serum, fasting 351 mg/dL 30-200 HDL [...] Panel - Chemistry sodium, serum 141 mmol/L 674-217 6285/08/08 potassium, serum 4.9 mmol/L 3.5-5.2 chloride, serum 101 mmol/L 98-107 carbon dioxide, venous blood 34.1 mmol/L 21.0-32 .0 creatinine, serum 1.98 mg/dL 0.55-1.30 blood glucose 193 mg/dL 65-110 urea nitrogen, blood 30 mg/dL 7-18 calcium, serum 9.8 mg/dL 8.5-10.1 Encounters Code Encounter Date Provider Facility CPT-41635 Level 4 Est. Patient 15:44:38 CDT Shonna Parker APRN [facility] CPT-75562 Level 4 Est. Patient 11:34:17 CDT Baltazar Childers MD [facility] CPT-26458 Level 3 Est. Patient 16:40:40 CDT Baltazar Childers MD [facility] CPT-60807 Level 4 Est. Patient 10:41:24 CDT Baltazar Childers MD [facility] CPT-87301 Level 4 Est. Patient 16:01:48 CDT Baltazar Childers MD [facility] CPT-55162 Level 4 Est. Patient 16:54:07 COURTESY DRIVER Baltazar Childers MD [facility] CPT-79986 Level 4 Est. Patient 15:42:12 CDT Baltazar Childers MD [facility] CPT-31089 Level 4 Est. Patient 11:29:55 CDT Baltazar Childers MD [facility] CPT-21530 Level 4 Est. Patient 14:15:19 CDT Baltazar Childers MD [facility] CPT-79808 Level 4 Est. Patient 12:20:13 CDT Baltazar Childers MD [facility] CPT-66835 Level 4 Est. Patient 14:52:45 COURTESY DRIVER Baltazra Childers MD [facility] CPT-60315 Level 4 Est. Patient 14:18:34 COURTESY DRIVER Baltazra Childers MD [facility] CPT-20565 Level 4 Est. Patient 15:18:29 CDT Baltazar Childers MD [facility] CPT-63257 Level 3 Est. Patient 12:45:34 CDT Baltazar Childers MD [facility] CPT-80388 Level 3 Est. Patient 10:10:11 CDT Baltazar Childers MD [facility] CPT-20463 Level 3 Est. Patient 14:07:50 CDT Baltazar Childers MD [facility] CPT-21143 Level 4 Est. Patient 12:26:10 COURTESY DRIVER Baltazar Childers MD [facility] CPT-07573 Level 4 Est. Patient 14:45:38 CDT Baltazar Childers MD [facility] CPT-27566 Level 4 New Patient 12:30:48 CDT Baltazar hinton MD [facility] Procedures Code Procedure Name Date Entry Date Standard Desc ription CPT-45521 Lipid - LAB USE ONLY 17:39:15 COURTESY DRIVER 9 CPT-34744 HGBA1C - LAB USE ONLY 17:39:15 COURTESY DRIVER CPT-34315 CMP - LAB USE ONLY 17:39:14 COURTESY DRIVER CPT-72273 Venipuncture Draw Fee 17:39:14 COURTESY DRIVER CPT-96705 First Vx - Ix admin via ID I M or jet injects without counseling by physician 16:55:17 COURTESY DRIVER CPT-69000 Fluzone Quadrivalent Intramuscular Suspe nsion 0.5 ML 16:55:17 COURTESY DRIVER CPT-21829 Renal Panel - LAB USE ONLY 17:39:20 CDT 201 10/31/07 CPT-97502 CBC - LAB USE ONLY 17:39:20 CDT CPT-09385 Venipuncture Draw Fee 17:39:20 CDT CPT-95935 Venipuncture Draw Fee 14:33:30 CDT CPT-89670 Renal Panel - LAB USE ONLY 14:33:30 CDT 201 10/31/07 CPT-91293 CBC - LAB USE ONLY 14:33:29 CDT CPT-39756 Venipuncture Draw Fee 14:50:21 COURTESY DRIVER CPT-22993 Immunization Single Admin 17:35:35 CDT 2014 CPT-09212 Fluzone Quadrivalent preservative free ( >=3yrs.) 17:35:35 CDT CPT-44115 Venipuncture Draw Fee 12:10:27 COURTESY DRIVER CPT-47734 Fluzone Quadrivalent Intramuscular Suspe nsion 0.5 ML 10:49:13 CDT CPT-24723 First Vx Component - Ix admi n via ID IM or jet inj without physician counseling 15:17:19 COURTESY DRIVER CPT-31162 Pneumovax 23 15:17:19 COURTESY DRIVER CPT-67667 Pneumovax 14:52:45 COURTESY DRIVER CPT-99141 Venipuncture Draw Fee 14:06:30 COURTESY DRIVER CPT-000 Give Appropriate Flu Vaccine 14:18:34 COURTESY DRIVER 2 CPT-18513 Administration single or combination vac cine inc oral 14:46:00 COURTESY DRIVER CPT-26059 Influenza split virus > age 3 14:46:00 COURTESY DRIVER CPT-OV Office Visit 19:13:16 CDT CPT-17229 Zostavax 18:41:56 CDT CPT-39642 Administration single or combination vac cine inc oral 12:56:39 CDT CPT-48464 Zoster Vaccine (Zostavax) 12:56:39 CDT 2012 CPT-67012 Venipuncture Draw Fee 10:58:57 CDT CPT-99629 Sono pelvis non OB uterus ovaries cervix 17:45:04 CDT CPT-71982 Sono retroperitoneal complete kidneys an d bladder 17:14:36 CDT CPT-OV Office Visit 14:59:38 COURTESY DRIVER CPT-J1070 Depo Testosterone 100 mg 14:50:13 CDT 03/05 CPT-06756 Abx/Therapy Injection 14:50:13 CDT CPT-65994 Administration single or combination vac cine inc oral 14:34:43 CDT CPT-92382 Influenza split virus > age 3 14:34:43 CDT CPT-J1070 Depo Testosterone 100 mg 17:37:13 CDT 01/11 CPT-01449 Abx/Therapy Injection 17:37:13 CDT CPT-07577 Venipuncture Draw Fee 16:30:13 CDT CPT-76634 Venipuncture Draw Fee 16:29:43 CDT CPT-J1070 Depo Testosterone 100 mg 14:45:38 CDT 01/11
--- OUTSIDE RECORDS SUMMARY | 2019-10-27 12:51 | XMS REPORT | Clinical Summary ---
Author Author Abhishek, Elba Lance [facility] Address 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 PHYSIATRIST Benign neoplasm of colon PERIPHERAL NEUROPATHY 356.9 [...] ronary atherosclerosis of unspecified type of vessel, [place] or graft OTH NONSPC ABN FINDNG [...] a day as needed 2 NAPROXEN SODIUM 68764037800 No Longer Active Baltazar Childers MD Active ATORVASTATIN CALCIUM 20 MG ORAL TABS Take 1 tab daily ATORVASTATIN CALCIUM 40130255686 Active Kelly Iraheta LPN Active FUROSEMIDE 40 MG TABS Take one by mouth daily FUROSEMIDE 93967216854 Active Baltazar Childers MD Active LISINOPRIL 20 MG TABS Take one by mouth daily at bedtime LISINOPRIL 35148324356 Active Baltazar Childers MD Active ONETOUCH ULTRA BLUE STRP Test twice a day GLUCO SE BLOOD 64676197932 No Longer Active Baltazar Childers MD Active TRUEPLUS LANCETS 33G MISC Test twice a day LANCET S 13492832297 Active Baltazar Childers MD Active TRUEDRAW LANCING DEVICE MISC Test twice a day L ANCET DEVICES 93782105941 Active Baltazar Childers MD Active TRUETRACK TEST STRP Test twice a day GLUCOSE BLOO D 30430577081 Active Baltazar Childers MD Active TRUETRACK BLOOD GLUCOSE W/DEVICE KIT Test twice a day BLOOD GLUCOSE MONITORING SUPPL 32016609542 Active Baltazar Childers MD Activ e HYDROCODONE-ACETAMINOPHEN 7.5-325 MG TABS Take 1 tab every 6-8 hour s PRN HYDROCODONE-ACETAMINOPHEN 17116567387 Active Baltazar Childers MD Active NORTRIPTYLINE HCL 50 MG CAPS 1 every night for neuropathy 4 NORTRIPTYLINE HCL 65834902587 Active Baltazar Childers MD Acti ve GABAPENTIN 300 MG CAPS 1 three times a day GABAPE NTIN 79830367672 Active Kelly JOHNNY Iraheta Active GABAPENTIN 300 MG CAPS 1 po qd x 2 days, then 1 po BID x 2 d ays, then 1 po TID GABAPENTIN 47208471915 No Longer Active Baltazar silverman MD Active TRAMADOL HCL 50 MG TABS 1 twice a day as needed for pain TRAMADOL HCL 73612483965 Active Baltazar Childers MD Active NAPROXEN 500 MG TABS 1 tablet by mouth twice daily NAPROXEN 44288598425 No Longer Active Baltazar Childers MD Active PROAIR HFA 108 (90 BASE) MCG/ACT AERS 2 puffs four times a d ay as needed ALBUTEROL SULFATE 69705055837 Active Baltazar Childers MD Active DEPO-TESTOSTERONE 200 MG/ML OIL as directed RUFINO TOSTERONE CYPIONATE 49760004650 No Longer Active Baltazar Childers MD Active LIPITOR 20 MG TABS Take one by mouth daily in evening ATORVASTATIN CALCIUM 58112891421 No Longer Active Baltazar Childers MD Activ e CRESTOR 10 MG TABS 1 by mouth every day R OSUVASTATIN CALCIUM 56514763321 No Longer Active Baltazar Childers MD Activ e PHENTERMINE HCL 37.5 MG TABS Take one by mouth daily 2 PHENTERMINE HCL 43587648897 No Longer Active Baltazar Childers MD Activ e ROBAXIN-750 750 MG TABS Take one by mouth daily ME THOCARBAMOL 33911768061 Active Baltazar Childers MD Active TIZANIDINE HCL 4 MG TABS 1 daily as needed for muscle spasm 2011 TIZANIDINE HCL 12407743271 No Longer Active Dawna Salazar RN Active TIBDONHPPF-ZUVE-RPHIXNIW 50-325-40 MG TABS 1 four time s a day as needed for heacache PZNYCCECCN-HEJY-TAEWVMOQ 12804117101 Active Baltazar Childers MD Active SUMATRIPTAN SUCCINATE 100 MG TABS 1 tablet by mouth at onset of migraine as needed SUMATRIPTAN SUCCINATE 75075544797 Active Melody Paez Active LORATADINE 10 MG TABS Take one by mouth daily LORATADINE 11966787919 Active Baltazar Childers MD Active OMEPRAZOLE 20 MG CPDR Take one by mouth daily OMEPRAZOLE 78313866586 Active Baltazar Childers MD Active HYDROXYZINE HCL 25 MG TABS Take one by mouth daily HYDROXYZINE HCL 61693441718 Active Baltazar Childers MD Active GLIPIZIDE 10 MG TABS 1 tablet by mouth twice daily GLIPIZIDE 52654794349 Active Baltazar Childers MD Active ALPRAZOLAM 1 MG TABS 1 tablet by mouth daily at bedtime for restles s leg ALPRAZOLAM 80894779210 Active Baltazar Childers MD Active METFORMIN HCL 1000 MG TABS Take one by mouth twice daily METFORMIN HCL 83466176215 Active Baltazar Childers MD Active TIZANIDINE HCL 4 MG TABS 1 daily as needed for muscle spasm 2011 TIZANIDINE HCL 4 MG TABS 726897 TIZANIDINE HCL Inactiv e PHENTERMINE HCL 37.5 MG TABS Take one by mouth daily 2 PHENTERMINE HCL 37.5 MG TABS 779408 PHENTERMINE HCL Inactive CRESTOR 10 MG TABS 1 by mouth every day C RESTOR 10 MG TABS ROSUVASTATIN CALCIUM Inactive LIPITOR 20 MG TABS Take one by mouth daily in evening LIPITOR 20 MG TABS 279060 ATORVASTATIN CALCIUM Inactive DEPO-TESTOSTERONE 200 MG/ML OIL as directed 8 DEPO-TESTOSTERONE 200 MG/ML OIL 170640 TESTOSTERONE CYPIONATE Inactive NAPROXEN 500 MG TABS 1 tablet by mouth twice daily 201 07/27/22 NAPROXEN 500 MG TABS 530023 NAPROXEN Inactive GABAPENTIN 300 MG CAPS 1 po qd x 2 days, then 1 po BID x 2 d ays, then 1 po TID GABAPENTIN 300 MG CAPS 534154 GABAPENTIN Inact amie ONETOUCH ULTRA BLUE STRP Test twice a day ONETOUCH ULTRA BLUE STRP GLUCOSE BLOOD Inactive NAPROXEN SODIUM 220 MG ORAL TABS 1 three times a day as needed 2 NAPROXEN SODIUM 220 MG ORAL TABS 021304 NAPROXEN SODIUM Inactive Immunizations Vaccine Administration Date Value Standard Floyd cription pneumococcal immunization administered Pneumovax 23 [CVX33] pneumococcal polysaccharide vaccine, 23 valent Seasonal influenza vaccine, injectable, containing preservative, for > 3 years old (Afluria, FluLaval, Fluzone, Fluvirin, Fluarix, Agriflu(>= 18 yo)) Fluzone (>3 yrs.) [[id number]] Influenza, seasonal, inject able Seasonal influenza vaccine, injectable, containing preservative, for > 3 years old (Afluria, FluLaval, Fluzone, Fluvirin, Fluarix, Agriflu(>= 18 yo)) Fluzone (>3 yrs.) [RNH100] Influenza, seasonal, inject able Vital Signs Date [...] - Chem istry sodium, serum 140 mmol/L 752-893 8752/05/05 potassium, serum 4.9 mmol/L 3.5-5.2 chloride, serum 99 mmol/L 98-107 carbon dioxide, venous blood 34.3 mmol/L 21.0-32 .0 blood glucose 132 mg/dL 65-110 calcium, serum 10.1 mg/dL 8.5-10.1 urea nitrogen, blood 23 mg/dL 7-18 creatinine, serum 2.00 mg/dL 0.60-1.30 Lab Report: CBC, HGBA1C, Renal Panel - C hemistry hemoglobin A1C, blood, as % of total hemoglobin 7.9 % 4.3-6.0 sodium, serum 139 mmol/L 273-534 7253/02/04 potassium, serum 5.4 mmol/L 3.5-5.2 chloride, serum [...] Panel - Chemistry sodium, serum 138 mmol/L 260-533 2917/11/23 carbon dioxide, venous blood 32.4 mmol/L 21.0-32 .0 potassium, serum 5.7 mmol/L 3.5-5.2 chloride, serum 98 mmol/L 98-107 blood glucose 136 mg/dL 65-110 urea nitrogen, blood 18 mg/dL 7-18 creatinine, serum 1.71 mg/dL 0.55-1.30 alanine aminotransferase (SGPT), serum 71 U/L 12-78 aspartate aminotransferase (SGOT), serum 34 U/L 15-37 calcium, serum 9.4 mg/dL 8.5-10.1 bilirubin, serum, total 0.40 mg/dL 0.00-1.00 cholesterol, serum 405 mg/dL 665-287 7043/11/23 triglyceride, serum, fasting 709 mg/dL 30-200 HDL [...] mg/dL Encounters Code Encounter Date Provider Facility CPT-42281 Level 4 Est. Patient 16:54:07 WASH DRILLER HELPER Baltazar Childers MD [facility] CPT-65507 Level 4 Est. Patient 15:42:12 CDT Baltazar Childers MD [facility] CPT-94873 Level 4 Est. Patient 11:29:55 CDT Baltazar Childers MD [facility] CPT-80289 Level 4 Est. Patient 14:15:19 CDT Baltazar Childers MD [facility] CPT-82786 Level 4 Est. Patient 12:20:13 CDT Baltazar Childers MD [facility] CPT-15714 Level 4 Est. Patient 14:52:45 WASH DRILLER HELPER Baltazar Childers MD [facility] CPT-24968 Level 4 Est. Patient 14:18:34 WASH DRILLER HELPER Baltazar Childers MD [facility] CPT-37680 Level 4 Est. Patient 15:18:29 CDT Baltazar Childers MD [facility] CPT-32614 Level 3 Est. Patient 12:45:34 CDT Baltazar Childers MD [facility] CPT-12233 Level 3 Est. Patient 10:10:11 CDT Baltazar Childers MD [facility] CPT-34242 Level 3 Est. Patient 14:07:50 CDT Baltazar Childers MD [facility] CPT-30826 Level 4 Est. Patient 12:26:10 WASH DRILLER HELPER Baltazar Childers MD [facility] CPT-34230 Level 4 Est. Patient 14:45:38 CDT Baltazar Childers MD [facility] CPT-97728 Level 4 New Patient 12:30:48 CDT Baltazar hinton MD [facility] Procedures Code Procedure Name Date Entry Date Standard Desc ription CPT-25430 Venipuncture Draw Fee 14:50:21 WASH DRILLER HELPER CPT-65529 Immunization Single Admin 17:35:35 CDT 2014 CPT-16372 Fluzone Quadrivalent preservative free ( >=3yrs.) 17:35:35 CDT CPT-19126 Venipuncture Draw Fee 12:10:27 WASH DRILLER HELPER CPT-12908 Fluzone Quadrivalent Intramuscular Suspe nsion 0.5 ML 10:49:13 CDT CPT-83918 First Vx Component - Ix admi n via ID IM or jet inj without physician counseling 15:17:19 WASH DRILLER HELPER CPT-72195 Pneumovax 23 15:17:19 WASH DRILLER HELPER CPT-09835 Pneumovax 14:52:45 WASH DRILLER HELPER CPT-36564 Venipuncture Draw Fee 14:06:30 WASH DRILLER HELPER CPT-000 Give Appropriate Flu Vaccine 14:18:34 WASH DRILLER HELPER 2 CPT-92324 Administration single or combination vac cine inc oral 14:46:00 WASH DRILLER HELPER CPT-65856 Influenza split virus > age 3 14:46:00 WASH DRILLER HELPER CPT-OV Office Visit 19:13:16 CDT CPT-10445 Zostavax 18:41:56 CDT CPT-58127 Administration single or combination vac cine inc oral 12:56:39 CDT CPT-10557 Zoster Vaccine (Zostavax) 12:56:39 CDT 2012 CPT-22074 Venipuncture Draw Fee 10:58:57 CDT CPT-61734 Sono pelvis non OB uterus ovaries cervix 17:45:04 CDT CPT-50156 Sono retroperitoneal complete kidneys an d bladder 17:14:36 CDT CPT-OV Office Visit 14:59:38 WASH DRILLER HELPER CPT-J1070 Depo Testosterone 100 mg 14:50:13 CDT 03/05 CPT-56594 Abx/Therapy Injection 14:50:13 CDT CPT-95127 Administration single or combination vac cine inc oral 14:34:43 CDT CPT-40004 Influenza split virus > age 3 14:34:43 CDT CPT-J1070 Depo Testosterone 100 mg 17:37:13 CDT 01/11 CPT-62648 Abx/Therapy Injection 17:37:13 CDT CPT-24037 Venipuncture Draw Fee 16:30:13 CDT CPT-20359 Venipuncture Draw Fee 16:29:43 CDT CPT-J1070 Depo Testosterone 100 mg 14:45:38 CDT 01/11
--- OUTSIDE RECORDS SUMMARY | 2019-10-27 12:51 | XMS REPORT | Clinical Summary ---
Author Author Admin, [facility] Address Unknown Phone Unavailable Allergies, Adverse Reactions, 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 TRAUMA COUNSELLOR Benign neoplasm of colon PERIPHERAL NEUROPATHY 356.9 Active Baltazar Nickerson MD Unspecified hereditary and idiopathic peripheral neuropathy PERSONAL HISTORY OF COLONIC POLYPS V12.72 Active 2 Lolis Thomas APRN Personal history of colonic polyps PARESTHESIA, HANDS 782.0 Active Baltazar Chidlers MD Disturbance of skin sensation FH DIABETES V18.0 Active Baltazar Childers MD Family history of diabetes mellitus ANEMIA 285.9 Active Baltazar Childers MD Anemia, unspecified RENAL INSUFFICIENCY 593.9 Active Baltazar bynum MD Unspecified disorder of kidney and ureter CAD 414.00 Active Gladys Arce [facility] ronary atherosclerosis of unspecified type of vessel, [place] or graft OTH NONSPC ABN FINDNG RAD&OTH [...] Routine gynecological examination Health screening V70.0 Active aBltazar Wayne Routine general medical examination at a [...] MISC use 1 daily INSULIN PEN NEEDLE 80857289471 Active Martita Herbert RMA Active TOUJEO SOLOSTAR 300 UNIT/ML SC SOPN 10 units SC daily INSULIN GLARGINE 10881837843 No Longer Active Martita Herbert RMA Active LANTUS SOLOSTAR 100 UNIT/ML SC SOPN 10 units SC daily INSULIN GLARGINE 18081129050 Active Martita Herbert RMA Active NAPROXEN SODIUM 220 MG ORAL TABS 1 three times a day as needed 2 NAPROXEN SODIUM 71888840675 No Longer Active Baltazar Childers MD Active ATORVASTATIN CALCIUM 20 MG ORAL TABS Take 1 tab daily ATORVASTATIN CALCIUM 15901837006 Active KENDALL Juarez Active FUROSEMIDE 40 MG TABS Take one by mouth daily FUROSEMIDE 95674399398 Active Baltazar Childers MD Active LISINOPRIL 20 MG TABS Take one by mouth daily at bedtime LISINOPRIL 11107199161 Active Baltazar Childers MD Active ONETOUCH ULTRA BLUE STRP Test twice a day GLUCO SE BLOOD 00284063379 No Longer Active Baltazar Childers MD Active TRUEPLUS LANCETS 33G MISC Test twice a day LANCET S 36636891077 Active KENDALL Juarez Active TRUEDRAW LANCING DEVICE MISC Test twice a day L ANCET DEVICES 89943814520 Active Baltazar Childers MD Active TRUETRACK TEST STRP Test twice a day GLUCOSE BLOO D 71543356869 Active KENDALL Juarez Active TRUETRACK BLOOD GLUCOSE W/DEVICE KIT Test twice a day BLOOD GLUCOSE MONITORING SUPPL 14555383261 Active Baltazar Childers MD Activ e HYDROCODONE-ACETAMINOPHEN 7.5-325 MG TABS Take 1 tab every 6-8 hour s PRN HYDROCODONE-ACETAMINOPHEN 66735148233 Active Baltazar Childers MD Active NORTRIPTYLINE HCL 50 MG CAPS 1 every night for neuropathy 4 NORTRIPTYLINE HCL 69782300848 Active Baltazar Childers MD Acti ve GABAPENTIN 300 MG CAPS 1 three times a day GABAPE NTIN 77425345575 Active Baltazar Childers MD Active GABAPENTIN 300 MG CAPS 1 po qd x 2 days, then 1 po BID x 2 d ays, then 1 po TID GABAPENTIN 56435096649 No Longer Active Baltazar silverman MD Active TRAMADOL HCL 50 MG TABS 1 twice a day as needed for pain TRAMADOL HCL 42422818929 Active Baltazar Childers MD Active NAPROXEN 500 MG TABS 1 tablet by mouth twice daily NAPROXEN 74580285609 No Longer Active Baltazar Childers MD Active PROAIR HFA 108 (90 BASE) MCG/ACT AERS 2 puffs four times a d ay as needed ALBUTEROL SULFATE 64687568997 Active KENDALL Juarez Active DEPO-TESTOSTERONE 200 MG/ML OIL as directed RUFINO TOSTERONE CYPIONATE 70644373485 No Longer Active Baltazar Childers MD Active LIPITOR 20 MG TABS Take one by mouth daily in evening ATORVASTATIN CALCIUM 20283457147 No Longer Active Baltazar Childers MD Activ e CRESTOR 10 MG TABS 1 by mouth every day R OSUVASTATIN CALCIUM 54653214099 No Longer Active Baltazar Childers MD Activ e PHENTERMINE HCL 37.5 MG TABS Take one by mouth daily 2 PHENTERMINE HCL 60482598282 No Longer Active Baltazar Childers MD Activ e ROBAXIN-750 750 MG TABS Take one by mouth daily ME THOCARBAMOL 58014436061 Active Baltazar Childers MD Active TIZANIDINE HCL 4 MG TABS 1 daily as needed for muscle spasm 2011 TIZANIDINE HCL 53295714344 No Longer Active Dawna Salazar RN Active [id number] 50-325-40 MG TABS 1 four time s a day as needed for heacache [id number] 87947964892 Active Baltazar Childers MD Active SUMATRIPTAN SUCCINATE 100 MG TABS 1 tablet by mouth at onset of migraine as needed SUMATRIPTAN SUCCINATE 64634139719 Active KENDALL Juarez Active LORATADINE 10 MG TABS Take one by mouth daily LORATADINE 12294665439 Active Baltazar Childers MD Active OMEPRAZOLE 20 MG CPDR Take one by mouth daily OMEPRAZOLE 35934103893 Active [place] Fitzgeralder Active HYDROXYZINE HCL 25 MG TABS Take one by mouth daily HYDROXYZINE HCL 92333186826 Active Baltazar Childers MD Active GLIPIZIDE 10 MG TABS 1 tablet by mouth twice daily GLIPIZIDE 71303700421 Active Baltazar Childers MD Active ALPRAZOLAM 1 MG TABS 1 tablet by mouth daily at bedtime for restles s leg ALPRAZOLAM 10795850832 Active Baltazar Childers MD Active METFORMIN HCL 1000 MG TABS Take one by mouth twice daily METFORMIN HCL 24671435669 Active Baltazar Childers MD Active TIZANIDINE HCL 4 MG TABS 1 daily as needed for muscle spasm 2011 TIZANIDINE HCL 4 MG TABS 643022 TIZANIDINE HCL Inactiv e PHENTERMINE HCL 37.5 MG TABS Take one by mouth daily 2 PHENTERMINE HCL 37.5 MG TABS 817362 PHENTERMINE HCL Inactive CRESTOR 10 MG TABS 1 by mouth every day C RESTOR 10 MG TABS 539820 ROSUVASTATIN CALCIUM Inactive LIPITOR 20 MG TABS Take one by mouth daily in evening LIPITOR 20 MG TABS 765927 ATORVASTATIN CALCIUM Inactive DEPO-TESTOSTERONE 200 MG/ML OIL as directed 8 DEPO-TESTOSTERONE 200 MG/ML OIL 844634 TESTOSTERONE CYPIONATE Inactive NAPROXEN 500 MG TABS 1 tablet by mouth twice daily 201 07/27/22 NAPROXEN 500 MG TABS 265903 NAPROXEN Inactive GABAPENTIN 300 MG CAPS 1 po qd x 2 days, then 1 po BID x 2 d ays, then 1 po TID GABAPENTIN 300 MG CAPS 200585 GABAPENTIN Inact amie ONETOUCH ULTRA BLUE STRP Test twice a day ONETOUCH ULTRA BLUE STRP GLUCOSE BLOOD Inactive NAPROXEN SODIUM 220 MG ORAL TABS 1 three times a day as needed 2 NAPROXEN SODIUM 220 MG ORAL TABS 092281 NAPROXEN SODIUM Inactive TOUJEO SOLOSTAR 300 UNIT/ML [...] Fluarix, Agriflu(>= 18 yo)) Fluzone (>3 yrs.) [[id number]] Influenza, seasonal, inject able Seasonal influenza vaccine, injectable, containing preservative, for > 3 years old (Afluria, FluLaval, Fluzone, Fluvirin, Fluarix, Agriflu(>= 18 yo)) Fluzone (>3 yrs.) [[id number]] Influenza, seasonal, inject able Vital Signs Date [...] C - Chemistry sodium, serum 139 mmol/L 219-938 3087/07/07 potassium, serum 4.5 mmol/L 3.5-5.2 chloride, serum [...] 7.9 % 4.3-6.0 sodium, serum 139 mmol/L 452-332 7184/02/04 potassium, serum 5.4 mmol/L 3.5-5.2 chloride, serum [...] Panel - Chemistry sodium, serum 138 mmol/L 151-581 7415/11/23 carbon dioxide, venous blood 32.4 mmol/L 21.0-32 .0 potassium, serum 5.7 mmol/L 3.5-5.2 chloride, serum 98 mmol/L 98-107 blood glucose 136 mg/dL 65-110 urea nitrogen, blood 18 mg/dL 7-18 creatinine, serum 1.71 mg/dL 0.55-1.30 alanine aminotransferase (SGPT), serum 71 U/L 12-78 aspartate aminotransferase (SGOT), serum 34 U/L 15-37 calcium, serum 9.4 mg/dL 8.5-10.1 bilirubin, serum, total 0.40 mg/dL 0.00-1.00 cholesterol, serum 405 mg/dL 766-483 4160/11/23 triglyceride, serum, fasting 709 mg/dL 30-200 HDL [...] Panel - Chemistry sodium, serum 141 mmol/L 909-724 9095/08/08 potassium, serum 4.9 mmol/L 3.5-5.2 chloride, serum [...] mg/dL Encounters Code Encounter Date Provider Facility CPT-74746 Level 3 Est. Patient 16:40:40 CDT Baltazar Childers MD [facility] CPT-12146 Level 4 Est. Patient 10:41:24 CDT Baltazar Childers MD [facility] [place]-14171 Level 4 Est. Patient 16:01:48 CDT Baltazar Childers MD [facility] CPT-14695 Level 4 Est. Patient 16:54:07 TWISTER IN Baltazar Childers MD [facility] [place]-21195 Level 4 Est. Patient 15:42:12 CDT Baltazar Childers MD [facility] CPT-06580 Level 4 Est. Patient 11:29:55 CDT Baltazar Childers MD [facility]-57523 Level 4 Est. Patient 14:15:19 CDT Baltazar Childers MD [facility] CPT-41386 Level 4 Est. Patient 12:20:13 CDT Baltazar Childers MD [facility] CPT-44618 Level 4 Est. Patient 14:52:45 TWISTER IN Baltazar Childers MD [facility] CPT-01652 Level 4 Est. Patient 14:18:34 TWISTER IN Baltazar Childers MD [facility] CPT-01157 Level 4 Est. Patient 15:18:29 CDT Baltazar Childers MD [facility] CPT-97790 Level 3 Est. Patient 12:45:34 CDT Baltazar Childers MD [facility] CPT-24069 Level 3 Est. Patient 10:10:11 CDT Baltazar Childers MD [facility] CPT-61915 Level 3 Est. Patient 14:07:50 CDT Baltazar Childers MD [facility] CPT-75710 Level 4 Est. Patient 12:26:10 TWISTER IN Baltazar Childers MD [facility] CPT-17363 Level 4 Est. Patient 14:45:38 CDT Baltazar Childers MD [facility] CPT-80171 Level 4 New Patient 12:30:48 CDT Baltazar hinton MD [facility] Procedures Code Procedure Name Date Entry Date Standard Desc ription CPT-20416 Renal Panel - LAB USE ONLY 17:39:20 CDT 201 10/31/07 CPT-63029 CBC - LAB USE ONLY 17:39:20 CDT CPT-45645 Venipuncture Draw Fee 17:39:20 CDT CPT-76824 Venipuncture Draw Fee 14:33:30 CDT CPT-40255 Renal Panel - LAB USE ONLY 14:33:30 CDT 201 10/31/07 CPT-24898 CBC - LAB USE ONLY 14:33:29 CDT CPT-42226 Venipuncture Draw Fee 14:50:21 TWISTER IN CPT-85111 Immunization Single Admin 17:35:35 CDT 2014 CPT-66226 Fluzone Quadrivalent preservative free ( >=3yrs.) 17:35:35 CDT CPT-39964 Venipuncture Draw Fee 12:10:27 TWISTER IN CPT-91490 Fluzone Quadrivalent Intramuscular Suspe nsion 0.5 ML 10:49:13 CDT CPT-40075 First Vx Component - Ix admi n via ID IM or jet inj without physician counseling 15:17:19 TWISTER IN CPT-18402 Pneumovax 23 15:17:19 TWISTER IN CPT-43220 Pneumovax 14:52:45 TWISTER IN CPT-79548 Venipuncture Draw Fee 14:06:30 TWISTER IN CPT-000 Give Appropriate Flu Vaccine 14:18:34 TWISTER IN 2 CPT-44125 Administration single or combination vac cine inc oral 14:46:00 TWISTER IN CPT-73631 Influenza split virus > age 3 14:46:00 TWISTER IN CPT-OV Office Visit 19:13:16 CDT CPT-81154 Zostavax 18:41:56 CDT CPT-04415 Administration single or combination vac cine inc oral 12:56:39 CDT CPT-57783 Zoster Vaccine (Zostavax) 12:56:39 CDT 2012 CPT-85382 Venipuncture Draw Fee 10:58:57 CDT CPT-90082 Sono pelvis non OB uterus ovaries cervix 17:45:04 CDT CPT-22927 Sono retroperitoneal complete kidneys an d bladder 17:14:36 CDT CPT-OV Office Visit 14:59:38 TWISTER IN CPT-J1070 Depo Testosterone 100 mg 14:50:13 CDT 03/05 CPT-44211 Abx/Therapy Injection 14:50:13 CDT CPT-95440 Administration single or combination vac cine inc oral 14:34:43 CDT CPT-16761 Influenza split virus > age 3 14:34:43 CDT CPT-J1070 Depo Testosterone 100 mg 17:37:13 CDT 01/11 CPT-49631 Abx/Therapy Injection 17:37:13 CDT CPT-85726 Venipuncture Draw Fee 16:30:13 CDT CPT-45583 Venipuncture Draw Fee 16:29:43 CDT CPT-J1070 Depo Testosterone 100 mg 14:45:38 CDT 01/11
--- OUTSIDE RECORDS SUMMARY | 2019-10-27 12:51 | XMS REPORT | Clinical Summary ---
Author Author Abhishek, Elba Lance [facility] Address Unknown Phone Unavailable Allergies, Adverse 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 Thomas [employer] Benign neoplasm of colon PERIPHERAL NEUROPATHY 356.9 Active Baltazar Nickerson MD Unspecified hereditary and idiopathic peripheral neuropathy PERSONAL HISTORY OF COLONIC POLYPS V12.72 Active 2 Lolis Thomas [employer] HOUSEK[employer] Personal history of colonic polyps PARESTHESIA, HANDS [...] three times a day 201 12/03/26 GABAPENTIN [id number] No Longer Active Baltazar Childers MD Activ e LISINOPRIL 20 MG ORAL TABLET 1 tablet by mouth daily at night 2016 LISINOPRIL 09441186491 Active Baltazar Childers MD Active ZITHROMAX Z-ISAIAS 250 MG ORAL TABLET Take two tablets to day and then 1 tablet daily for 4 days AZITHROMYCIN 96370318357 No Longer A ctive Baltazar Childers MD Active LANTUS SOLOSTAR 100 UNIT/ML SUBCUTANEOUS SOLUTION PEN- INJECTOR 30 units SC daily INSULIN GLARGINE 21979319213 Active Baltazar Childers MD Active AMLODIPINE BESYLATE 5 MG ORAL TABLET 1 tab daily for HTN AMLODIPINE BESYLATE 30013687614 Active Baltazar Childers MD Active SYNTHROID 100 MCG ORAL TABLET 1 tablet by mouth daily LEVOTHYROXINE SODIUM 88083502517 Active Baltazar Childers MD Active GLIPIZIDE 10 MG ORAL TABLET take 2 tablets twice daily GLIPIZIDE 77766614737 Active Baltazar Childers MD Active SUCRALFATE 1 GM ORAL TABLET 1 four times a day to coat the stoma ch SUCRALFATE 50867975571 No Longer Active Baltazar Childers MD Active PEN NEEDLES 31G X 6 MM use 1 daily INSULIN PEN NE EDLE 19666033549 Active KENDALL Juarez Active APARNAURINKUO SOLOSTAR 300 UNIT/ML SUBCUTANEOUS SOLUTION PEN- INJECTOR 10 units SC daily INSULIN GLARGINE 57971921931 No Longer Active Rola ARGUETA Active NAPROXEN SODIUM 220 MG ORAL TABLET 1 three times a day as needed NAPROXEN SODIUM 90276979029 No Longer Active Baltazar Childers MD Active ATORVASTATIN CALCIUM 20 MG ORAL TABLET Take 1 tab daily ATORVASTATIN CALCIUM 45531523906 Active Baltazar Childers MD A ctive FUROSEMIDE 40 MG ORAL TABLET Take one by mouth daily FUROSEMIDE 80504141115 Active Baltazar Childers MD Active LISINOPRIL 20 MG ORAL TABLET Take one by mouth daily at bedtime LISINOPRIL 23979437643 No Longer Active Baltazar Childers MD Active ONETOUCH ULTRA BLUE IN VITRO STRIP Test twice a day 07/11/11 GLUCOSE BLOOD 70523141810 No Longer Active Baltazar Childers MD Acti ve TRUEPLUS LANCETS 33G Test twice a day LANCETS 4103652 7992 Active KENDALL Juarez Active TRUEDRAW LANCING DEVICE Test twice a day LANCET DEVICES 87524538411 Active Baltazar Childers MD Active TRUETRACK TEST IN VITRO STRIP Test twice a day GLUCOSE BLOOD 85572401785 Active KENDALL Juarez Active TRUETRACK BLOOD GLUCOSE w/Device KIT Test twice a day BLOOD GLUCOSE MONITORING SUPPL 94756040666 Active Baltazar Childers MD Activ e HYDROCODONE-ACETAMINOPHEN 7.5-325 MG ORAL TABLET Take 1 tab every 6-8 hours PRN HYDROCODONE-ACETAMINOPHEN 81812495605 Active Baltazar Nickerson MD Active NORTRIPTYLINE HCL 50 MG ORAL CAPSULE 1 every night for neuropathy 2 NORTRIPTYLINE HCL 78349992744 Active Baltazar Childers MD Acti ve GABAPENTIN 300 MG ORAL CAPSULE 1 po qd x 2 days, then 1 po BID x 2 days, then 1 po TID GABAPENTIN 87890447478 No Longer Active Baltazar Childers MD Active TRAMADOL HCL 50 MG ORAL TABLET 1 twice a day as needed for pain 201 07/27/28 TRAMADOL HCL 67852753472 Active Baltazar Childers MD Active NAPROXEN 500 MG ORAL TABLET 1 tablet by mouth twice daily NAPROXEN 34204040311 No Longer Active Baltazar Childers MD Active PROAIR HFA 108 (90 Base) MCG/ACT INHALATION AEROSOL SO LUTION 2 puffs four times a day as needed ALBUTEROL SULFATE 08994979599 Active KENDALL Bowie Active DEPO-TESTOSTERONE 200 MG/ML INTRAMUSCULAR SOLUTION as directed TESTOSTERONE CYPIONATE 80388442506 No Longer Active Baltazar Childers MD Active LIPITOR 20 MG ORAL TABLET Take one by mouth daily in evening ATORVASTATIN CALCIUM 85719719367 No Longer Active Baltazar Childers MD Active CRESTOR 10 MG ORAL TABLET 1 by mouth every day ROSUVASTATIN CALCIUM 14705734233 No Longer Active Baltazar Childers MD Active PHENTERMINE HCL 37.5 MG ORAL TABLET Take one by mouth daily PHENTERMINE HCL 48985967059 No Longer Active Baltazar Childers MD Ac tive ROBAXIN-750 750 MG ORAL TABLET Take one by mouth daily METHOCARBAMOL 94855292400 Active KENDALL Juarez Active TIZANIDINE HCL 4 MG ORAL TABLET 1 daily as needed for muscle spa sm TIZANIDINE HCL 47631287410 No Longer Active Dawna Salazar RN Active [id number] 50-325-40 MG ORAL TABLET 1 fo ur times a day as needed for heacache [id number] 32983721326 Active Baltazar Childers MD Active SUMATRIPTAN SUCCINATE 100 MG ORAL TABLET 1 tablet by m outh at onset of migraine as needed SUMATRIPTAN SUCCINATE 80396549855 Active KENDALL Restrepo Active LORATADINE 10 MG ORAL TABLET Take one by mouth daily LORATADINE 10967115915 Active KENDALL Juarez Active OMEPRAZOLE 20 MG ORAL CAPSULE DELAYED RELEASE Take one by mouth jostin ly OMEPRAZOLE 19806795528 Active Baltazar Childers MD Active HYDROXYZINE HCL 25 MG ORAL TABLET Take one by mouth daily HYDROXYZINE HCL 72612924513 Active Baltazar Childers MD Active ALPRAZOLAM 1 MG ORAL TABLET 1 tablet by [facility] ALPRAZOLAM 34962108600 Active Baltazar Childers MD Active METFORMIN HCL 1000 MG ORAL TABLET Take one by mouth twice daily METFORMIN HCL 71335565814 Active Baltazar Childers MD Active TIZANIDINE HCL 4 MG ORAL TABLET 1 daily as needed for muscle spa sm TIZANIDINE HCL 4 MG ORAL TABLET 936498 TIZANIDINE HCL Inactive PHENTERMINE HCL 37.5 MG ORAL TABLET Take one by mouth daily PHENTERMINE HCL 37.5 MG ORAL TABLET 389496 PHENTERMINE HCL Inac tive CRESTOR 10 MG ORAL TABLET 1 by mouth every day CRESTOR 10 MG ORAL TABLET 985376 ROSUVASTATIN CALCIUM Inactive LIPITOR 20 MG ORAL TABLET Take one by mouth daily in evening LIPITOR 20 MG ORAL TABLET 372573 ATORVASTATIN CALCIUM Inactive DEPO-TESTOSTERONE 200 MG/ML INTRAMUSCULAR SOLUTION as directed DEPO-TESTOSTERONE 200 MG/ML INTRAMUSCULAR SOLUTION 990726 RUFINO TOSTERONE CYPIONATE Inactive NAPROXEN 500 MG ORAL TABLET 1 tablet by mouth twice daily NAPROXEN 500 MG ORAL TABLET 869211 NAPROXEN Inactive GABAPENTIN 300 MG ORAL CAPSULE 1 po qd x 2 days, then 1 po BID x 2 days, then 1 po TID GABAPENTIN 300 MG ORAL CAPSULE 509699 GABAP ENTIN Inactive ONETOUCH ULTRA BLUE IN VITRO STRIP Test twice a day 07/11/11 ONETOUCH ULTRA BLUE IN VITRO STRIP GLUCOSE BLOOD Inact amie NAPROXEN SODIUM 220 MG ORAL TABLET 1 three times a day as needed NAPROXEN SODIUM 220 MG ORAL TABLET 037885 NAPROXEN SODI UM Inactive TOUJEO SOLOSTAR 300 UNIT/ML SUBCUTANEOUS SOLUTION PEN- INJECTOR 10 units SC daily TOUJEO SOLOSTAR 300 UNIT/ML SUBCUTANEOUS SOLUTION PEN-INJECTOR INSULIN GLARGINE Inactive SUCRALFATE 1 GM ORAL TABLET 1 four times a day to coat the stoma ch SUCRALFATE 1 GM ORAL TABLET 355473 SUCRALFATE Inac tive GABAPENTIN 300 MG ORAL CAPSULE 1 three times a day 201 12/03/26 GABAPENTIN 300 MG ORAL CAPSULE 652113 GABAPENTIN Inactive ZITHROMAX Z-ISAIAS 250 MG ORAL TABLET Take two tablets to day and then 1 tablet daily for 4 days ZITHROMAX Z-ISAIAS 250 MG ORAL TAB LET 431542 AZITHROMYCIN Inactive Immunizations Vaccine Administration Date Value Standard Floyd cription pneumococcal immunization administered Pneumovax 23 [CVX33] pneumococcal polysaccharide vaccine, 23 valent Seasonal influenza vaccine, injectable, containing preservative, for > 3 years old (Afluria, FluLaval, Fluzone, Fluvirin, Fluarix, Agriflu(>= 18 yo)) Fluzone (>3 yrs.) [[id number]] Influenza, seasonal, inject able Seasonal influenza vaccine, injectable, containing preservative, for > 3 years old (Afluria, FluLaval, Fluzone, Fluvirin, Fluarix, Agriflu(>= 18 yo)) Fluzone (>3 yrs.) [[id number]] Influenza, seasonal, inject able Vital Signs Date Name Value Unit Range Description blood pressure, diastolic 69 mm[Hg] BP salmeorn blood pressure, systolic 140 mm[Hg] BP sys [...] - Chem istry sodium, serum 139 mmol/L 269-935 8149/10/03 potassium, serum 4.7 mmol/L 3.5-5.2 chloride, serum 98 mmol/L 98-107 carbon dioxide, venous blood 28.7 mmol/L 21.0-32 .0 blood glucose 218 mg/dL 65-110 calcium, serum 9.8 mg/dL 8.5-10.1 urea nitrogen, blood 19 mg/dL 7-18 creatinine, serum 1.68 mg/dL 0.60-1.30 Lab Report: Basic Metabolic Panel, [facility] C - Chemistry sodium, serum 143 mmol/L 520-072 5617/06/19 potassium, serum 5.9 mmol/L 3.5-5.2 chloride, serum 105 mmol/L 98-107 carbon dioxide, venous blood 30.2 mmol/L 21.0-32 .0 blood glucose 189 mg/dL 65-110 calcium, serum 9.7 mg/dL 8.5-10.1 urea nitrogen, blood 37 mg/dL 7-18 creatinine, serum 2.11 mg/dL 0.55-1.30 hemoglobin A1C, blood, as % of total hemoglobin 8.2 % 4.3-6.0 Lab Report: CBC, Renal Panel - Chemistry sodium, serum 142 mmol/L 926-251 0316/08/11 potassium, serum 4.8 mmol/L 3.5-5.2 chloride, serum [...] (L) - Chemistry cholesterol, serum 209 mg/dL 774-563 7444/12/27 triglyceride, serum, fasting 329 mg/dL 30-200 HDL cholesterol, serum 56 mg/dL 32-60 LDL cholesterol, serum 87 mg/dL 0-130 TSH 3.60 m[iU]/mL 0.36-3.74 Encounters Code Encounter Date Provider Facility CPT-91371 Level 4 Est. Patient 17:05:37 CDT Baltazar Childers MD [facility] CPT-68754 Level 4 Est. Patient 16:21:19 LAUNDRY AGENT Baltazar Childers MD [facility] CPT-87707 Level 4 Est. Patient 12:25:11 CDT Baltazar Childers MD [facility]-43897 Level 4 Est. Patient 14:22:31 CDT Baltazar Childers MD [facility]-15183 Level 4 Est. Patient 15:44:38 CDT Shonna Parker APRN [facility]-12102 Level 4 Est. Patient 11:34:17 CDT Baltazar Childers MD [facility]-46863 Level 3 Est. Patient 16:40:40 CDT Baltazar Childers MD [facility]-18794 Level 4 Est. Patient 10:41:24 CDT Baltazar Childers MD [facility]-23247 Level 4 Est. Patient 16:01:48 CDT Baltazar Childers MD [facility]-41891 Level 4 Est. Patient 16:54:07 LAUNDRY AGENT Baltazar Childers MD [facility]-43600 Level 4 Est. Patient 15:42:12 CDT Baltazar Childers MD [facility] CPT-31662 Level 4 Est. Patient 11:29:55 CDT Baltazar Childers MD [facility]-55473 Level 4 Est. Patient 14:15:19 CDT Baltazar Childers MD [facility] CPT-83605 Level 4 Est. Patient 12:20:13 CDT Baltazar Childers MD [facility] CPT-21157 Level 4 Est. Patient 14:52:45 LAUNDRY AGENT Baltazar Childers MD [facility] CPT-77997 Level 4 Est. Patient 14:18:34 LAUNDRY AGENT Baltazar Childers MD [facility]-88209 Level 4 Est. Patient 15:18:29 CDT Baltazar Childers MD [facility] CPT-98307 Level 3 Est. Patient 12:45:34 CDT Baltazar Childers MD [facility] CPT-02952 Level 3 Est. Patient 10:10:11 CDT Baltazar Childers MD [facility] CPT-00140 Level 3 Est. Patient 14:07:50 CDT Baltazar Childers MD [facility] CPT-55593 Level 4 Est. Patient 12:26:10 LAUNDRY AGENT Baltazar Childers MD [facility] CPT-82852 Level 4 Est. Patient 14:45:38 CDT Baltazar Childers MD [facility] CPT-90985 Level 4 New Patient 12:30:48 CDT Baltazar hinton MD [facility] Procedures Code Procedure Name Date Entry Date Standard Desc ription CPT-000 Give Appropriate Flu Vaccine 12:25:14 CDT 2 CPT-56201 First Vx - Ix admin via ID I M or jet injects without counseling by physician 13:08:59 CDT CPT-47886 Fluzone Quadrivalent Intramuscular Suspe nsion 0.5 ML 13:08:59 CDT CPT-35096 Venipuncture Draw Fee 12:04:12 CDT CPT-36367 Lipid - LAB USE ONLY 17:39:15 LAUNDRY AGENT 9 CPT-50407 HGBA1C - LAB USE ONLY 17:39:15 LAUNDRY AGENT CPT-30227 CMP - LAB USE ONLY 17:39:14 LAUNDRY AGENT CPT-96649 Venipuncture Draw Fee 17:39:14 LAUNDRY AGENT CPT-93414 First Vx - Ix admin via ID I M or jet injects without counseling by physician 16:55:17 LAUNDRY AGENT CPT-22001 Fluzone Quadrivalent Intramuscular Suspe nsion 0.5 ML 16:55:17 LAUNDRY AGENT CPT-41353 Renal Panel - LAB USE ONLY 17:39:20 CDT 201 10/31/07 CPT-06244 CBC - LAB USE ONLY 17:39:20 CDT CPT-84871 Venipuncture Draw Fee 17:39:20 CDT CPT-41350 Venipuncture Draw Fee 14:33:30 CDT CPT-05040 Renal Panel - LAB USE ONLY 14:33:30 CDT 201 10/31/07 CPT-88677 CBC - LAB USE ONLY 14:33:29 CDT CPT-05259 Venipuncture Draw Fee 14:50:21 LAUNDRY AGENT CPT-11038 Immunization Single Admin 17:35:35 CDT 2014 CPT-29349 Fluzone Quadrivalent preservative free ( >=3yrs.) 17:35:35 CDT CPT-05860 Venipuncture Draw Fee 12:10:27 LAUNDRY AGENT CPT-33869 Fluzone Quadrivalent Intramuscular Suspe nsion 0.5 ML 10:49:13 CDT CPT-82405 First Vx Component - Ix admi n via ID IM or jet inj without physician counseling 15:17:19 LAUNDRY AGENT CPT-98903 Pneumovax 23 15:17:19 LAUNDRY AGENT CPT-55841 Pneumovax 14:52:45 LAUNDRY AGENT CPT-04396 Venipuncture Draw Fee 14:06:30 LAUNDRY AGENT CPT-000 Give Appropriate Flu Vaccine 14:18:34 LAUNDRY AGENT 2 CPT-12751 Administration single or combination vac cine inc oral 14:46:00 LAUNDRY AGENT CPT-01871 Influenza split virus > age 3 14:46:00 LAUNDRY AGENT CPT-OV Office Visit 19:13:16 CDT CPT-59386 Zostavax 18:41:56 CDT CPT-99615 Administration single or combination vac cine inc oral 12:56:39 CDT CPT-09448 Zoster Vaccine (Zostavax) 12:56:39 CDT 2012 CPT-28878 Venipuncture Draw Fee 10:58:57 CDT CPT-37666 Sono pelvis non OB uterus ovaries cervix 17:45:04 CDT CPT-60231 Sono retroperitoneal complete kidneys an d bladder 17:14:36 CDT CPT-OV Office Visit 14:59:38 LAUNDRY AGENT CPT-J1070 Depo Testosterone 100 mg 14:50:13 CDT 03/05 CPT-33929 Abx/Therapy Injection 14:50:13 CDT CPT-07657 Administration single or combination vac cine inc oral 14:34:43 CDT CPT-19158 Influenza split virus > age 3 14:34:43 CDT CPT-J1070 Depo Testosterone 100 mg 17:37:13 CDT 01/11 CPT-29336 Abx/Therapy Injection 17:37:13 CDT CPT-09583 Venipuncture Draw Fee 16:30:13 CDT CPT-39125 Venipuncture Draw Fee 16:29:43 CDT CPT-J1070 Depo Testosterone 100 mg 14:45:38 CDT 01/11
--- OUTSIDE RECORDS SUMMARY | 2019-10-27 12:51 | XMS REPORT | Clinical Summary ---
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 Benign neoplasm of colon PERIPHERAL NEUROPATHY 356.9 [...] ronary atherosclerosis of unspecified type of vessel, minto or graft OTH NONSPC ABN FINDNG RAD&OTH [...] a day as needed 2 NAPROXEN SODIUM 62692874847 No Longer Active Baltazar Childers MD Active ATORVASTATIN CALCIUM 20 MG ORAL TABS Take 1 tab daily ATORVASTATIN CALCIUM 48161368011 Active Kelly Iraheta LPN Active FUROSEMIDE 40 MG TABS Take one by mouth daily FUROSEMIDE 66419863255 Active Baltazar Childers MD Active LISINOPRIL 20 MG TABS Take one by mouth daily at bedtime LISINOPRIL 43396585425 Active KENDALL Juarez Active ONETOUCH ULTRA BLUE STRP Test twice a day GLUCO SE BLOOD 74156295182 No Longer Active Baltazar Childers MD Active TRUEPLUS LANCETS 33G MISC Test twice a day LANCET S 10370136291 Active KENDALL Juarez Active TRUEDRAW LANCING DEVICE MISC Test twice a day L ANCET DEVICES 10287758359 Active Baltazar Childers MD Active TRUETRACK TEST STRP Test twice a day GLUCOSE BLOO D 20219085611 Active Baltazar Childers MD Active TRUETRACK BLOOD GLUCOSE W/DEVICE KIT Test twice a day BLOOD GLUCOSE MONITORING SUPPL 63229151948 Active Baltazar Childers MD Activ e HYDROCODONE-ACETAMINOPHEN 7.5-325 MG TABS Take 1 tab every 6-8 hour s PRN HYDROCODONE-ACETAMINOPHEN 54545111700 Active Baltazar Childers MD Active NORTRIPTYLINE HCL 50 MG CAPS 1 every night for neuropathy 4 NORTRIPTYLINE HCL 13981962822 Active Baltazar Childers MD Acti ve GABAPENTIN 300 MG CAPS 1 three times a day GABAPE NTIN 71860726538 Active KENDALL Juarez Active GABAPENTIN 300 MG CAPS 1 po qd x 2 days, then 1 po BID x 2 d ays, then 1 po TID GABAPENTIN 46278431249 No Longer Active Baltazar silverman MD Active TRAMADOL HCL 50 MG TABS 1 twice a day as needed for pain TRAMADOL HCL 25481753091 Active Baltazar Childers MD Active NAPROXEN 500 MG TABS 1 tablet by mouth twice daily NAPROXEN 37301925335 No Longer Active Baltazar Childers MD Active PROAIR HFA 108 (90 BASE) MCG/ACT AERS 2 puffs four times a d ay as needed ALBUTEROL SULFATE 41865131885 Active KENDALL Juarez Active DEPO-TESTOSTERONE 200 MG/ML OIL as directed RUFINO TOSTERONE CYPIONATE 84561222171 No Longer Active Baltazar Childers MD Active LIPITOR 20 MG TABS Take one by mouth daily in evening ATORVASTATIN CALCIUM 05662864958 No Longer Active Baltazar Childers MD Activ e CRESTOR 10 MG TABS 1 by mouth every day R OSUVASTATIN CALCIUM 89400235461 No Longer Active Baltazar Childers MD Activ e PHENTERMINE HCL 37.5 MG TABS Take one by mouth daily 2 PHENTERMINE HCL 93850107593 No Longer Active Baltazar Childers MD Activ e ROBAXIN-750 750 MG TABS Take one by mouth daily ME THOCARBAMOL 20624361669 Active Baltazar Childers MD Active TIZANIDINE HCL 4 MG TABS 1 daily as needed for muscle spasm 2011 TIZANIDINE HCL 88422760323 No Longer Active Dawna Salazar RN Active [id number]-GBCT-[id number] 50-325-40 MG TABS 1 four time s a day as needed for heacache [id number] 83558064598 Active Baltazar Childers MD Active SUMATRIPTAN SUCCINATE 100 MG TABS 1 tablet by mouth at onset of migraine as needed SUMATRIPTAN SUCCINATE 86443103207 Active KENDALL Juarez Active LORATADINE 10 MG TABS Take one by mouth daily LORATADINE 41724339398 Active Baltazar Childers MD Active OMEPRAZOLE 20 MG CPDR Take one by mouth daily OMEPRAZOLE 42339654221 Active Baltazar Childers MD Active HYDROXYZINE HCL 25 MG TABS Take one by mouth daily HYDROXYZINE HCL 58273193008 Active Baltazar Childers MD Active GLIPIZIDE 10 MG TABS 1 tablet by mouth twice daily GLIPIZIDE 21415177384 Active Bella Suarez APRN Active ALPRAZOLAM 1 MG TABS 1 tablet by mouth daily at bedtime for restles s leg ALPRAZOLAM 36018563054 Active Baltazar Childers MD Active METFORMIN HCL 1000 MG TABS Take one by mouth twice daily METFORMIN HCL 34373961804 Active Baltazar Childers MD Active TIZANIDINE HCL 4 MG TABS 1 daily as needed for muscle spasm 2011 TIZANIDINE HCL 4 MG TABS 928996 TIZANIDINE HCL Inactiv e PHENTERMINE HCL 37.5 MG TABS Take one by mouth daily 2 PHENTERMINE HCL 37.5 MG TABS 278455 PHENTERMINE HCL Inactive CRESTOR 10 MG TABS 1 by mouth every day C RESTOR 10 MG TABS ROSUVASTATIN CALCIUM Inactive LIPITOR 20 MG TABS Take one by mouth daily in evening LIPITOR 20 MG TABS 967587 ATORVASTATIN CALCIUM Inactive DEPO-TESTOSTERONE 200 MG/ML OIL as directed 8 DEPO-TESTOSTERONE 200 MG/ML OIL 899537 TESTOSTERONE CYPIONATE Inactive NAPROXEN 500 MG TABS 1 tablet by mouth twice daily 201 07/27/22 NAPROXEN 500 MG TABS 626845 NAPROXEN Inactive GABAPENTIN 300 MG CAPS 1 po qd x 2 days, then 1 po BID x 2 d ays, then 1 po TID GABAPENTIN 300 MG CAPS 524227 GABAPENTIN Inact amie ONETOUCH ULTRA BLUE STRP Test twice a day ONETOUCH ULTRA BLUE STRP GLUCOSE BLOOD Inactive NAPROXEN SODIUM 220 MG ORAL TABS 1 three times a day as needed 2 NAPROXEN SODIUM 220 MG ORAL TABS 035133 NAPROXEN SODIUM Inactive Immunizations Vaccine Administration Date Value Standard Floyd cription pneumococcal immunization administered Pneumovax 23 [CVX33] pneumococcal polysaccharide vaccine, 23 valent Seasonal influenza vaccine, injectable, containing preservative, for > 3 years old (Afluria, FluLaval, Fluzone, Fluvirin, Fluarix, Agriflu(>= 18 yo)) Fluzone (>3 yrs.) [[id number]] Influenza, seasonal, inject able Seasonal influenza vaccine, injectable, containing preservative, for > 3 years old (Afluria, FluLaval, Fluzone, Fluvirin, Fluarix, Agriflu(>= 18 yo)) Fluzone (>3 yrs.) [[id number]] Influenza, seasonal, inject able Vital Signs Date [...] - Chem istry sodium, serum 140 mmol/L 768-504 8261/05/05 potassium, serum 4.9 mmol/L 3.5-5.2 chloride, serum 99 mmol/L 98-107 carbon dioxide, venous blood 34.3 mmol/L 21.0-32 .0 blood glucose 132 mg/dL 65-110 calcium, serum 10.1 mg/dL 8.5-10.1 urea nitrogen, blood 23 mg/dL 7-18 creatinine, serum 2.00 mg/dL 0.60-1.30 Lab Report: CBC, HGBA1C, Renal Panel - C hemistry hemoglobin A1C, blood, as % of total hemoglobin 7.9 % 4.3-6.0 sodium, serum 139 mmol/L 603-977 4739/02/04 potassium, serum 5.4 mmol/L 3.5-5.2 chloride, serum [...] Panel - Chemistry sodium, serum 138 mmol/L 943-570 7614/11/23 carbon dioxide, venous blood 32.4 mmol/L 21.0-32 .0 potassium, serum 5.7 mmol/L 3.5-5.2 chloride, serum 98 mmol/L 98-107 blood glucose 136 mg/dL 65-110 urea nitrogen, blood 18 mg/dL 7-18 creatinine, serum 1.71 mg/dL 0.55-1.30 alanine aminotransferase (SGPT), serum 71 U/L 12-78 aspartate aminotransferase (SGOT), serum 34 U/L 15-37 calcium, serum 9.4 mg/dL 8.5-10.1 bilirubin, serum, total 0.40 mg/dL 0.00-1.00 cholesterol, serum 405 mg/dL 385-656 1191/11/23 triglyceride, serum, fasting 709 mg/dL 30-200 HDL [...] mg/dL Encounters Code Encounter Date Provider Facility CPT-11068 Level 4 Est. Patient 16:54:07 WOOD CUT ENGRAVER Baltazar Childers MD [facility] CPT-74170 Level 4 Est. Patient 15:42:12 CDT Baltazar Childers MD [facility] CPT-61831 Level 4 Est. Patient 11:29:55 CDT Baltazar Childers MD [facility] CPT-27137 Level 4 Est. Patient 14:15:19 CDT Baltazar Childers MD [facility] CPT-76068 Level 4 Est. Patient 12:20:13 CDT Baltazar Childers MD [facility] CPT-16398 Level 4 Est. Patient 14:52:45 WOOD CUT ENGRAVER Baltazar Childers MD [facility] CPT-19095 Level 4 Est. Patient 14:18:34 WOOD CUT ENGRAVER Baltazar Childers MD [facility] CPT-03507 Level 4 Est. Patient 15:18:29 CDT Baltazar Childers MD [facility] CPT-38758 Level 3 Est. Patient 12:45:34 CDT Baltazar Childers MD [facility] CPT-86242 Level 3 Est. Patient 10:10:11 CDT Baltazar Childers MD [facility] CPT-69906 Level 3 Est. Patient 14:07:50 CDT Baltazar Childers MD [facility] CPT-10840 Level 4 Est. Patient 12:26:10 WOOD CUT ENGRAVER Baltazar Childers MD [facility] CPT-81675 Level 4 Est. Patient 14:45:38 CDT Baltazar Childers MD [facility] CPT-92351 Level 4 New Patient 12:30:48 CDT Baltazar hinton MD [facility] Procedures Code Procedure Name Date Entry Date Standard Desc ription CPT-46567 Venipuncture Draw Fee 14:50:21 WOOD CUT ENGRAVER CPT-92136 Immunization Single Admin 17:35:35 CDT 2014 CPT-24716 Fluzone Quadrivalent preservative free ( >=3yrs.) 17:35:35 CDT CPT-65099 Venipuncture Draw Fee 12:10:27 WOOD CUT ENGRAVER CPT-15950 Fluzone Quadrivalent Intramuscular Suspe nsion 0.5 ML 10:49:13 CDT CPT-99788 First Vx Component - Ix admi n via ID IM or jet inj without physician counseling 15:17:19 WOOD CUT ENGRAVER CPT-38697 Pneumovax 23 15:17:19 WOOD CUT ENGRAVER CPT-24513 Pneumovax 14:52:45 WOOD CUT ENGRAVER CPT-05256 Venipuncture Draw Fee 14:06:30 WOOD CUT ENGRAVER CPT-000 Give Appropriate Flu Vaccine 14:18:34 WOOD CUT ENGRAVER 2 CPT-95630 Administration single or combination vac cine inc oral 14:46:00 WOOD CUT ENGRAVER CPT-71888 Influenza split virus > age 3 14:46:00 WOOD CUT ENGRAVER CPT-OV Office Visit 19:13:16 CDT CPT-02177 Zostavax 18:41:56 CDT CPT-58280 Administration single or combination vac cine inc oral 12:56:39 CDT CPT-74705 Zoster Vaccine (Zostavax) 12:56:39 CDT 2012 CPT-46274 Venipuncture Draw Fee 10:58:57 CDT CPT-35087 Sono pelvis non OB uterus ovaries cervix 17:45:04 CDT CPT-64348 Sono retroperitoneal complete kidneys an d bladder 17:14:36 CDT CPT-OV Office Visit 14:59:38 WOOD CUT ENGRAVER CPT-J1070 Depo Testosterone 100 mg 14:50:13 CDT 03/05 CPT-09552 Abx/Therapy Injection 14:50:13 CDT CPT-10484 Administration single or combination vac cine inc oral 14:34:43 CDT CPT-12310 Influenza split virus > age 3 14:34:43 CDT CPT-J1070 Depo Testosterone 100 mg 17:37:13 CDT 01/11 CPT-25090 Abx/Therapy Injection 17:37:13 CDT CPT-47614 Venipuncture Draw Fee 16:30:13 CDT CPT-66086 Venipuncture Draw Fee 16:29:43 CDT CPT-J1070 Depo Testosterone 100 mg 14:45:38 CDT 01/11
--- OUTSIDE RECORDS SUMMARY | 2019-10-27 12:52 | XMS REPORT | Clinical Summary ---
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 SYNTHROID 0.1 MG TAB 1 tablet by mouth daily LE VOTHYROXINE SODIUM 73806038205 Active Shonna Parker APRN Active GLIPIZIDE 10 MG TAB take 2 tablets twice daily GLIPIZIDE 35559844778 Active Baltazar Childers MD Active SUCRALFATE 1 GM TABS 1 four times a day to coat the stomach 2015 SUCRALFATE 89006600890 No Longer Active Baltazar Childers MD Active PEN NEEDLES 31G X 6 MM MISC use 1 daily INSULIN PEN NEEDLE 51930109895 Active Gato Rae MD Active TOUJEO SOLOSTAR 300 UNIT/ML SC SOPN 10 units SC daily INSULIN GLARGINE 96651904100 No Longer Active Martita Herbert ARGUETA Active LANTUS SOLOSTAR 100 UNIT/ML SC SOPN 10 units SC daily INSULIN GLARGINE 35574873822 Active KENDALL Juarez Active NAPROXEN SODIUM 220 MG ORAL TABS 1 three times a day as needed 2 NAPROXEN SODIUM 75538128022 No Longer Active Baltazar Childers MD Active ATORVASTATIN CALCIUM 20 MG ORAL TABS Take 1 tab daily ATORVASTATIN CALCIUM 26167968696 Active Baltazar Childers MD Active FUROSEMIDE 40 MG TABS Take one by mouth daily FUROSEMIDE 72614060281 Active Baltazar Childers MD Active LISINOPRIL 20 MG TABS Take one by mouth daily at bedtime LISINOPRIL 42187055110 No Longer Active Baltazar Childers MD Active ONETOUCH ULTRA BLUE STRP Test twice a day GLUCO SE BLOOD 87312902548 No Longer Active Baltazar Childers MD Active TRUEPLUS LANCETS 33G MISC Test twice a day LANCET S 10974883138 Active KENDALL Juarez Active TRUEDRAW LANCING DEVICE MISC Test twice a day L ANCET DEVICES 36545349263 Active Baltazar Childers MD Active TRUETRACK TEST STRP Test twice a day GLUCOSE BLOO D 74646798879 Active KENDALL Juarez Active TRUETRACK BLOOD GLUCOSE W/DEVICE KIT Test twice a day BLOOD GLUCOSE MONITORING SUPPL 70861600609 Active Baltazar Childers MD Activ e HYDROCODONE-ACETAMINOPHEN 7.5-325 MG TABS Take 1 tab every 6-8 hour s PRN HYDROCODONE-ACETAMINOPHEN 12896797346 Active Baltazar Childers MD Active NORTRIPTYLINE HCL 50 MG CAPS 1 every night for neuropathy 4 NORTRIPTYLINE HCL 71058351845 Active Baltazar Childers MD Acti ve GABAPENTIN 300 MG CAPS 1 three times a day GABAPE NTIN 70558186044 Active Baltazar Childers MD Active GABAPENTIN 300 MG CAPS 1 po qd x 2 days, then 1 po BID x 2 d ays, then 1 po TID GABAPENTIN 40466615707 No Longer Active Baltazar silverman MD Active TRAMADOL HCL 50 MG TABS 1 twice a day as needed for pain TRAMADOL HCL 86527104081 Active Baltazar Childers MD Active NAPROXEN 500 MG TABS 1 tablet by mouth twice daily NAPROXEN 73767153518 No Longer Active Baltazar Childers MD Active PROAIR HFA 108 (90 BASE) MCG/ACT AERS 2 puffs four times a d ay as needed ALBUTEROL SULFATE 79409168675 Active Baltazar Childers MD Active DEPO-TESTOSTERONE 200 MG/ML OIL as directed RUFINO TOSTERONE CYPIONATE 56358948454 No Longer Active Baltazar Childers MD Active LIPITOR 20 MG TABS Take one by mouth daily in evening ATORVASTATIN CALCIUM 00380276369 No Longer Active Baltazar Childers MD Activ e CRESTOR 10 MG TABS 1 by mouth every day R OSUVASTATIN CALCIUM 70067670474 No Longer Active Baltazar Childers MD Activ e PHENTERMINE HCL 37.5 MG TABS Take one by mouth daily 2 PHENTERMINE HCL 82194351032 No Longer Active Baltazar Childers MD Activ e ROBAXIN-750 750 MG TABS Take one by mouth daily ME THOCARBAMOL 62280741348 Active Baltazar Childers MD Active TIZANIDINE HCL 4 MG TABS 1 daily as needed for muscle spasm 2011 TIZANIDINE HCL 86774624156 No Longer Active Dawna Salazar RN Active AILBQVLKTA-TVXC-IZERZKZO 50-325-40 MG TABS 1 four time s a day as needed for heacache ONVPXWWYAW-EZLE-[id number] 02218388344 Active Baltazar Childers MD Active SUMATRIPTAN SUCCINATE 100 MG TABS 1 tablet by mouth at onset of migraine as needed SUMATRIPTAN SUCCINATE 76250377489 Active Shonna richey APRN Active LORATADINE 10 MG TABS Take one by mouth daily LORATADINE 28098596378 Active Bethrenetta Carr KENDALL Active OMEPRAZOLE 20 MG CPDR Take one by mouth daily OMEPRAZOLE 31558850615 Active Baltazar Childers MD Active HYDROXYZINE HCL 25 MG TABS Take one by mouth daily HYDROXYZINE HCL 44573578996 Active Baltazar Childers MD Active ALPRAZOLAM 1 MG TABS 1 tablet by mouth daily at bedtime for restles s leg ALPRAZOLAM 87495065455 Active Baltazar Childers MD Active METFORMIN HCL 1000 MG TABS Take one by mouth twice daily METFORMIN HCL 35620944396 Active Baltazar Childers MD Active TIZANIDINE HCL 4 MG TABS 1 daily as needed for muscle spasm 2011 TIZANIDINE HCL 4 MG TABS 986730 TIZANIDINE HCL Inactiv e PHENTERMINE HCL 37.5 MG TABS Take one by mouth daily 2 PHENTERMINE HCL 37.5 MG TABS 241332 PHENTERMINE HCL Inactive CRESTOR 10 MG TABS 1 by mouth every day C RESTOR 10 MG TABS 381821 ROSUVASTATIN CALCIUM Inactive LIPITOR 20 MG TABS Take one by mouth daily in evening LIPITOR 20 MG TABS 678142 ATORVASTATIN CALCIUM Inactive DEPO-TESTOSTERONE 200 MG/ML OIL as directed 8 DEPO-TESTOSTERONE 200 MG/ML OIL 272223 TESTOSTERONE CYPIONATE Inactive NAPROXEN 500 MG TABS 1 tablet by mouth twice daily 201 07/27/22 NAPROXEN 500 MG TABS 449917 NAPROXEN Inactive GABAPENTIN 300 MG CAPS 1 po qd x 2 days, then 1 po BID x 2 d ays, then 1 po TID GABAPENTIN 300 MG CAPS 278042 GABAPENTIN Inact amie ONETOUCH ULTRA BLUE STRP Test twice a day ONETOUCH ULTRA BLUE STRP GLUCOSE BLOOD Inactive NAPROXEN SODIUM 220 MG ORAL TABS 1 three times a day as needed 2 NAPROXEN SODIUM 220 MG ORAL TABS 146655 NAPROXEN SODIUM Inactive TOUJEO SOLOSTAR 300 UNIT/ML SC SOPN 10 units SC daily TOUJEO SOLOSTAR 300 UNIT/ML SC SOPN INSULIN GLARGINE Inac tive SUCRALFATE 1 GM TABS 1 four times a day to coat the stomach 2015 SUCRALFATE 1 GM TABS 461522 SUCRALFATE Inactive Immunizations Vaccine Administration Date Value Standard Floyd cription pneumococcal immunization administered Pneumovax 23 [CVX33] pneumococcal polysaccharide vaccine, 23 valent Seasonal influenza vaccine, injectable, containing preservative, for > 3 years old (Afluria, FluLaval, Fluzone, Fluvirin, Fluarix, Agriflu(>= 18 yo)) Fluzone (>3 yrs.) [[id number]] Influenza, seasonal, inject able Seasonal influenza vaccine, injectable, containing preservative, for > 3 years old (Afluria, FluLaval, Fluzone, Fluvirin, Fluarix, Agriflu(>= 18 yo)) Fluzone (>3 yrs.) [[id number]] Influenza, seasonal, inject able Vital Signs Date [...] C - Chemistry sodium, serum 143 mmol/L 179-287 7028/06/19 potassium, serum 5.9 mmol/L 3.5-5.2 chloride, serum [...] Panel - Chemistry sodium, serum 143 mmol/L 436-706 2748/12/19 carbon dioxide, venous blood 32.5 mmol/L 21.0-32 .0 potassium, serum 4.9 mmol/L 3.5-5.2 chloride, serum 101 mmol/L 98-107 blood glucose 129 mg/dL 65-110 urea nitrogen, blood 18 mg/dL 7-18 creatinine, serum 1.79 mg/dL 0.55-1.30 alanine aminotransferase (SGPT), serum 34 U/L 12-78 aspartate aminotransferase (SGOT), serum 26 U/L 15-37 calcium, serum 8.9 mg/dL 8.5-10.1 bilirubin, serum, total 0.30 mg/dL 0.00-1.00 cholesterol, serum 214 mg/dL 376-084 7403/12/19 triglyceride, serum, fasting 351 mg/dL 30-200 HDL [...] Panel - Chemistry sodium, serum 141 mmol/L 103-437 2548/08/08 potassium, serum 4.9 mmol/L 3.5-5.2 chloride, serum 101 mmol/L 98-107 carbon dioxide, venous blood 34.1 mmol/L 21.0-32 .0 creatinine, serum 1.98 mg/dL 0.55-1.30 blood glucose 193 mg/dL 65-110 urea nitrogen, blood 30 mg/dL 7-18 calcium, serum 9.8 mg/dL 8.5-10.1 Encounters Code Encounter Date Provider Facility CPT-95096 Level 4 Est. Patient 14:22:31 CDT Baltazar Childers MD [facility] CPT-76827 Level 4 Est. Patient 15:44:38 CDT [facility] Level 4 Est. Patient 11:34:17 CDT Baltazar Childers MD [facility] CPT-88844 Level 3 Est. Patient 16:40:40 CDT Baltazar Childers MD [facility] CPT-63654 Level 4 Est. Patient 10:41:24 CDT Baltazar Childers MD [facility]-45515 Level 4 Est. Patient 16:01:48 CDT Baltazar Childers MD [facility] CPT-24390 Level 4 Est. Patient 16:54:07 EARTH SCIENCES PROFESSOR Baltazar Childers MD [facility] CPT-33764 Level 4 Est. Patient 15:42:12 CDT Baltazar Childers MD [facility] CPT-59772 Level 4 Est. Patient 11:29:55 CDT Baltazar Childers MD [facility] CPT-57155 Level 4 Est. Patient 14:15:19 CDT Baltazar Childers MD [facility] CPT-93543 Level 4 Est. Patient 12:20:13 CDT Baltazar Childers MD [facility] CPT-69714 Level 4 Est. Patient 14:52:45 EARTH SCIENCES PROFESSOR Baltazar Childers MD [facility] CPT-80075 Level 4 Est. Patient 14:18:34 EARTH SCIENCES PROFESSOR Baltazar Childers MD [facility] CPT-70219 Level 4 Est. Patient 15:18:29 CDT Baltazar Childers MD [facility] CPT-28391 Level 3 Est. Patient 12:45:34 CDT Baltazar Childers MD [facility] CPT-43096 Level 3 Est. Patient 10:10:11 CDT Baltazar Childers MD [facility] CPT-92885 Level 3 Est. Patient 14:07:50 CDT Baltazar Childers MD [facility] CPT-10279 Level 4 Est. Patient 12:26:10 EARTH SCIENCES PROFESSOR Baltazar Childers MD [facility] CPT-69403 Level 4 Est. Patient 14:45:38 CDT Baltazar Childers MD [facility] CPT-03681 Level 4 New Patient 12:30:48 CDT Baltazar hinton MD [facility] Procedures Code Procedure Name Date Entry Date Standard Desc ription CPT-84336 Lipid - LAB USE ONLY 17:39:15 EARTH SCIENCES PROFESSOR 9 CPT-11292 HGBA1C - LAB USE ONLY 17:39:15 EARTH SCIENCES PROFESSOR CPT-00746 CMP - LAB USE ONLY 17:39:14 EARTH SCIENCES PROFESSOR CPT-40359 Venipuncture Draw Fee 17:39:14 EARTH SCIENCES PROFESSOR CPT-84661 First Vx - Ix admin via ID I M or jet injects without counseling by physician 16:55:17 EARTH SCIENCES PROFESSOR CPT-63017 Fluzone Quadrivalent Intramuscular Suspe nsion 0.5 ML 16:55:17 EARTH SCIENCES PROFESSOR CPT-38241 Renal Panel - LAB USE ONLY 17:39:20 CDT 201 10/31/07 CPT-08029 CBC - LAB USE ONLY 17:39:20 CDT CPT-53156 Venipuncture Draw Fee 17:39:20 CDT CPT-45177 Venipuncture Draw Fee 14:33:30 CDT CPT-78468 Renal Panel - LAB USE ONLY 14:33:30 CDT 201 10/31/07 CPT-30761 CBC - LAB USE ONLY 14:33:29 CDT CPT-44565 Venipuncture Draw Fee 14:50:21 EARTH SCIENCES PROFESSOR CPT-20928 Immunization Single Admin 17:35:35 CDT 2014 CPT-83736 Fluzone Quadrivalent preservative free ( >=3yrs.) 17:35:35 CDT CPT-71956 Venipuncture Draw Fee 12:10:27 EARTH SCIENCES PROFESSOR CPT-48651 Fluzone Quadrivalent Intramuscular Suspe nsion 0.5 ML 10:49:13 CDT CPT-86488 First Vx Component - Ix admi n via ID IM or jet inj without physician counseling 15:17:19 EARTH SCIENCES PROFESSOR CPT-81153 Pneumovax 23 15:17:19 EARTH SCIENCES PROFESSOR CPT-84989 Pneumovax 14:52:45 EARTH SCIENCES PROFESSOR CPT-96168 Venipuncture Draw Fee 14:06:30 EARTH SCIENCES PROFESSOR CPT-000 Give Appropriate Flu Vaccine 14:18:34 EARTH SCIENCES PROFESSOR 2 CPT-99537 Administration single or combination vac cine inc oral 14:46:00 EARTH SCIENCES PROFESSOR CPT-48038 Influenza split virus > age 3 14:46:00 EARTH SCIENCES PROFESSOR CPT-OV Office Visit 19:13:16 CDT CPT-05856 Zostavax 18:41:56 CDT CPT-44302 Administration single or combination vac cine inc oral 12:56:39 CDT CPT-75243 Zoster Vaccine (Zostavax) 12:56:39 CDT 2012 CPT-58063 Venipuncture Draw Fee 10:58:57 CDT CPT-10276 Sono pelvis non OB uterus ovaries cervix 17:45:04 CDT CPT-25970 Sono retroperitoneal complete kidneys an d bladder 17:14:36 CDT CPT-OV Office Visit 14:59:38 EARTH SCIENCES PROFESSOR CPT-J1070 Depo Testosterone 100 mg 14:50:13 CDT 03/05 CPT-32472 Abx/Therapy Injection 14:50:13 CDT CPT-09801 Administration single or combination vac cine inc oral 14:34:43 CDT CPT-84551 Influenza split virus > age 3 14:34:43 CDT CPT-J1070 Depo Testosterone 100 mg 17:37:13 CDT 01/11 CPT-24064 Abx/Therapy Injection 17:37:13 CDT CPT-41369 Venipuncture Draw Fee 16:30:13 CDT CPT-63022 Venipuncture Draw Fee 16:29:43 CDT CPT-J1070 Depo Testosterone 100 mg 14:45:38 CDT 01/11
--- OUTSIDE RECORDS SUMMARY | 2019-10-27 12:52 | XMS REPORT | Clinical Summary ---
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 Benign neoplasm of colon PERIPHERAL NEUROPATHY [...] 1 tab daily for HTN AMLODIPINE BESYLATE [id number] Active Ct Ledesma SENIOR SOFTWARE MANAGER Active SYNTHROID 0.1 MG TAB 1 tablet by mouth daily LE VOTHYROXINE SODIUM 15635498408 Active Shonna Parker APRN Active GLIPIZIDE 10 MG TAB take 2 tablets twice daily GLIPIZIDE 87938486957 Active Baltazar Childers MD Active SUCRALFATE 1 GM TABS 1 four times a day to coat the stomach 2015 SUCRALFATE 16033673922 No Longer Active Baltazar Childers MD Active PEN NEEDLES 31G X 6 MM MISC use 1 daily INSULIN PEN NEEDLE 74092099313 Active Bella Suarez HADOOP JAVA DEVELOPER Active TOUJEO SOLOSTAR 300 UNIT/ML SC SOPN 10 units SC daily INSULIN GLARGINE 21672489857 No Longer Active Martita Godinez RMA Active LANTUS SOLOSTAR 100 UNIT/ML SC SOPN 10 units SC daily INSULIN GLARGINE 41689854513 Active KENDALL Juarez Active NAPROXEN SODIUM 220 MG ORAL TABS 1 three times a day as needed 2 NAPROXEN SODIUM 80274684514 No Longer Active Baltazar Childers MD Active ATORVASTATIN CALCIUM 20 MG ORAL TABS Take 1 tab daily ATORVASTATIN CALCIUM 13000449522 Active Baltazar Childers MD Active FUROSEMIDE 40 MG TABS Take one by mouth daily FUROSEMIDE 41038615615 Active Baltazar Childers MD Active LISINOPRIL 20 MG TABS Take one by mouth daily at bedtime LISINOPRIL 70226269035 No Longer Active Baltazar Childers MD Active ONETOUCH ULTRA BLUE STRP Test twice a day GLUCO SE BLOOD 14418021411 No Longer Active Baltazar Childers MD Active TRUEPLUS LANCETS 33G MISC Test twice a day LANCET S 48402931129 Active KENDALL Juarez Active TRUEDRAW LANCING DEVICE MISC Test twice a day L ANCET DEVICES 31250797683 Active Baltazar Childers MD Active TRUETRACK TEST STRP Test twice a day GLUCOSE BLOO D 72297029390 Active KENDALL Juarez Active TRUETRACK BLOOD GLUCOSE W/DEVICE KIT Test twice a day BLOOD GLUCOSE MONITORING SUPPL 77378133034 Active Baltazar Childers MD Activ e HYDROCODONE-ACETAMINOPHEN 7.5-325 MG TABS Take 1 tab every 6-8 hour s PRN HYDROCODONE-ACETAMINOPHEN 92443167064 Active Baltazar Childers MD Active NORTRIPTYLINE HCL 50 MG CAPS 1 every night for neuropathy 4 NORTRIPTYLINE HCL 13905473334 Active Baltazar Childers MD Acti ve GABAPENTIN 300 MG CAPS 1 three times a day GABAPE NTIN 11611946804 Active Baltazar Childers MD Active GABAPENTIN 300 MG CAPS 1 po qd x 2 days, then 1 po BID x 2 d ays, then 1 po TID GABAPENTIN 16097661818 No Longer Active Baltazar silverman MD Active TRAMADOL HCL 50 MG TABS 1 twice a day as needed for pain TRAMADOL HCL 57897145296 Active Baltazar Childers MD Active NAPROXEN 500 MG TABS 1 tablet by mouth twice daily NAPROXEN 27457220156 No Longer Active Baltazar Childers MD Active PROAIR HFA 108 (90 BASE) MCG/ACT AERS 2 puffs four times a d ay as needed ALBUTEROL SULFATE 68584406488 Active Baltazar Childers MD Active DEPO-TESTOSTERONE 200 MG/ML OIL as directed RUFINO TOSTERONE CYPIONATE 75352607170 No Longer Active Baltazar Childers MD Active LIPITOR 20 MG TABS Take one by mouth daily in evening ATORVASTATIN CALCIUM 72587394722 No Longer Active Baltazar Childers MD Activ e CRESTOR 10 MG TABS 1 by mouth every day R OSUVASTATIN CALCIUM 05864537537 No Longer Active Baltazar Childers MD Activ e PHENTERMINE HCL 37.5 MG TABS Take one by mouth daily 2 PHENTERMINE HCL 41101349900 No Longer Active Baltazar Childers MD Activ e ROBAXIN-750 750 MG TABS Take one by mouth daily ME THOCARBAMOL 69863835066 Active Baltazar Childers MD Active TIZANIDINE HCL 4 MG TABS 1 daily as needed for muscle spasm 2011 TIZANIDINE HCL 83385588758 No Longer Active Dawna Salazar RN Active [id number] 50-325-40 MG TABS 1 four time s a day as needed for heacache [id number] 09317391250 Active Baltazar Childers MD Active SUMATRIPTAN SUCCINATE 100 MG TABS 1 tablet by mouth at onset of migraine as needed SUMATRIPTAN SUCCINATE 20779855475 Active Shonna richey APRN Active LORATADINE 10 MG TABS Take one by mouth daily LORATADINE 11643594832 Active Beth Carr CÉSARBetsey Active OMEPRAZOLE 20 MG CPDR Take one by mouth daily OMEPRAZOLE 88109168428 Active Baltazar Childers MD Active HYDROXYZINE HCL 25 MG TABS Take one by mouth daily HYDROXYZINE HCL 36093818776 Active Baltazar Childers MD Active ALPRAZOLAM 1 MG TABS 1 tablet by mouth daily at bedtime for restles s leg ALPRAZOLAM 48767821718 Active Baltazar Childers MD Active METFORMIN HCL 1000 MG TABS Take one by mouth twice daily METFORMIN HCL 95890421329 Active Baltazar Childers MD Active TIZANIDINE HCL 4 MG TABS 1 daily as needed for muscle spasm 2011 TIZANIDINE HCL 4 MG TABS 365043 TIZANIDINE HCL Inactiv e PHENTERMINE HCL 37.5 MG TABS Take one by mouth daily 2 PHENTERMINE HCL 37.5 MG TABS 555220 PHENTERMINE HCL Inactive CRESTOR 10 MG TABS 1 by mouth every day C RESTOR 10 MG TABS 842838 ROSUVASTATIN CALCIUM Inactive LIPITOR 20 MG TABS Take one by mouth daily in evening LIPITOR 20 MG TABS 760828 ATORVASTATIN CALCIUM Inactive DEPO-TESTOSTERONE 200 MG/ML OIL as directed 8 DEPO-TESTOSTERONE 200 MG/ML OIL 439374 TESTOSTERONE CYPIONATE Inactive NAPROXEN 500 MG TABS 1 tablet by mouth twice daily 201 07/27/22 NAPROXEN 500 MG TABS 832214 NAPROXEN Inactive GABAPENTIN 300 MG CAPS 1 po qd x 2 days, then 1 po BID x 2 d ays, then 1 po TID GABAPENTIN 300 MG CAPS 617645 GABAPENTIN Inact amie ONETOUCH ULTRA BLUE STRP Test twice a day ONETOUCH ULTRA BLUE STRP GLUCOSE BLOOD Inactive NAPROXEN SODIUM 220 MG ORAL TABS 1 three times a day as needed 2 NAPROXEN SODIUM 220 MG ORAL TABS 607439 NAPROXEN SODIUM Inactive TOUJEO SOLOSTAR 300 UNIT/ML SC SOPN 10 units SC daily TOUJEO SOLOSTAR 300 UNIT/ML SC SOPN INSULIN GLARGINE Inac tive SUCRALFATE 1 GM TABS 1 four times a day to coat the stomach 2015 SUCRALFATE 1 GM TABS 618018 SUCRALFATE Inactive Immunizations Vaccine Administration Date Value Standard Floyd cription pneumococcal immunization administered Pneumovax 23 [CVX33] pneumococcal polysaccharide vaccine, 23 valent Seasonal influenza vaccine, injectable, containing preservative, for > 3 years old (Afluria, FluLaval, Fluzone, Fluvirin, Fluarix, Agriflu(>= 18 yo)) Fluzone (>3 yrs.) [CGH352] Influenza, seasonal, inject able Seasonal influenza vaccine, injectable, containing preservative, for > 3 years old (Afluria, FluLaval, Fluzone, Fluvirin, Fluarix, Agriflu(>= 18 yo)) Fluzone (>3 yrs.) [[id number]] Influenza, seasonal, inject able Vital Signs Date [...] C - Chemistry sodium, serum 143 mmol/L 294-054 7967/06/19 potassium, serum 5.9 mmol/L 3.5-5.2 chloride, serum 105 mmol/L 98-107 carbon dioxide, venous blood 30.2 mmol/L 21.0-32 .0 blood glucose 189 mg/dL 65-110 calcium, serum 9.7 mg/dL 8.5-10.1 urea nitrogen, blood 37 mg/dL 7-18 creatinine, serum 2.11 mg/dL 0.55-1.30 hemoglobin A1C, blood, as % of total hemoglobin 8.2 % 4.3-6.0 Lab Report: CBC - Hematology hemoglobin, blood 12.2 g/dL 12.0-16.0 hematocrit, blood 36.5 % 36.0-46.0 mean corpuscular volume, RBC 97 fL 80-97 mean corpuscular hemoglobin, RBC 32.5 pg 27. 0-31.2 mean corpuscular hemoglobin concentration, RBC 33.4 G/DL % 31.8-35.4 red blood cell distribution width 16.2 % 11 .6-14.8 platelet count 345 10^3/MM^3 10*3/mm3 016-712 9753/08/08 erythrocyte (RBC) count 3.75 10^6/MM^3 10*6/mm3 4.04-5.4 8 leukocyte count, blood 8.0 10^3/MM^3 10*3/mm3 4.6-10.2 Lab Report: Comp. Metabolic Panel, Lipid Panel - Chemistry sodium, serum 143 mmol/L 443-715 8853/12/19 cholesterol, serum 214 mg/dL 393-962 0408/12/19 triglyceride, serum, fasting 351 mg/dL 30-200 HDL cholesterol, serum 52 mg/dL 32-96 LDL cholesterol, serum 92 mg/dL 0-130 creatinine, serum 1.79 mg/dL 0.55-1.30 alanine aminotransferase (SGPT), serum 34 U/L 12-78 carbon dioxide, venous blood 32.5 mmol/L 21.0-32 .0 potassium, serum 4.9 mmol/L 3.5-5.2 chloride, serum 101 mmol/L 98-107 blood glucose 129 mg/dL 65-110 urea nitrogen, blood 18 mg/dL 7-18 aspartate aminotransferase (SGOT), serum 26 U/L 15-37 calcium, serum 8.9 mg/dL 8.5-10.1 bilirubin, serum, total 0.30 mg/dL 0.00-1.00 Lab Report: HEMOGLOBIN A1c, MicroAlb Ran dom [...] 4.9 mmol/L 3.5-5.2 sodium, serum 141 mmol/L 743-537 8371/08/08 calcium, serum 9.8 mg/dL 8.5-10.1 urea nitrogen, blood 30 mg/dL 7-18 blood glucose 193 mg/dL 65-110 Encounters Code Encounter Date Provider Facility CPT-53150 Level 4 Est. Patient 14:22:31 CDT Baltazar Childers MD [facility]-90985 Level 4 Est. [facility] 15:44:38 [facility] Est[facility] Patient 11:34:17 CDT Baltazar Childers MD [facility] CPT-22537 Level 3 Est. Patient 16:40:40 CDT Baltazar Childers MD [facility] CPT-95691 Level 4 Est. Patient 10:41:24 CDT Baltazar Childers MD [facility]-89773 Level 4 Est. Patient 16:01:48 CDT Baltazar Childers MD [facility] CPT-82538 Level 4 Est. Patient 16:54:07 DIVISION SERVICE MANAGER Baltazar Childers MD [facility]-42478 Level 4 Est. Patient 15:42:12 CDT Baltazar Childers MD [facility] CPT-12555 Level 4 Est. Patient 11:29:55 CDT Baltazar Childers MD [facility] CPT-62660 Level 4 Est. Patient 14:15:19 CDT Baltazar Childers MD [facility] CPT-92665 Level 4 Est. Patient 12:20:13 CDT Baltazar Childers MD [facility] CPT-97098 Level 4 Est. Patient 14:52:45 DIVISION SERVICE MANAGER Baltazar Childers MD [facility] CPT-60320 Level 4 Est. Patient 14:18:34 DIVISION SERVICE MANAGER Baltazar Childers MD [facility] CPT-18144 Level 4 Est. Patient 15:18:29 CDT Baltazar Childers MD [facility] CPT-38442 Level 3 Est. Patient 12:45:34 CDT Baltazar Childers MD [facility] CPT-57244 Level 3 Est. Patient 10:10:11 CDT Baltazar Childers MD [facility] CPT-90330 Level 3 Est. Patient 14:07:50 CDT Baltazar Childers MD [facility] CPT-85776 Level 4 Est. Patient 12:26:10 DIVISION SERVICE MANAGER Baltazar Childers MD [facility] CPT-57714 Level 4 Est. Patient 14:45:38 CDT Baltazar Childers MD [facility] CPT-39396 Level 4 New Patient 12:30:48 CDT Baltazar hinton MD [facility] Procedures Code Procedure Name Date Entry Date Standard Desc ription CPT-96013 Lipid - LAB USE ONLY 17:39:15 DIVISION SERVICE MANAGER 9 CPT-16373 HGBA1C - LAB USE ONLY 17:39:15 DIVISION SERVICE MANAGER CPT-67759 CMP - LAB USE ONLY 17:39:14 DIVISION SERVICE MANAGER CPT-09337 Venipuncture Draw Fee 17:39:14 DIVISION SERVICE MANAGER CPT-22160 First Vx - Ix admin via ID I M or jet injects without counseling by physician 16:55:17 DIVISION SERVICE MANAGER CPT-11571 Fluzone Quadrivalent Intramuscular Suspe nsion 0.5 ML 16:55:17 DIVISION SERVICE MANAGER CPT-47598 Renal Panel - LAB USE ONLY 17:39:20 CDT 201 10/31/07 CPT-81387 CBC - LAB USE ONLY 17:39:20 CDT CPT-63840 Venipuncture Draw Fee 17:39:20 CDT CPT-85477 Venipuncture Draw Fee 14:33:30 CDT CPT-32189 Renal Panel - LAB USE ONLY 14:33:30 CDT 201 10/31/07 CPT-41689 CBC - LAB USE ONLY 14:33:29 CDT CPT-00925 Venipuncture Draw Fee 14:50:21 DIVISION SERVICE MANAGER CPT-19899 Immunization Single Admin 17:35:35 CDT 2014 CPT-43989 Fluzone Quadrivalent preservative free ( >=3yrs.) 17:35:35 CDT CPT-40856 Venipuncture Draw Fee 12:10:27 DIVISION SERVICE MANAGER CPT-34838 Fluzone Quadrivalent Intramuscular Suspe nsion 0.5 ML 10:49:13 CDT CPT-54610 First Vx Component - Ix admi n via ID IM or jet inj without physician counseling 15:17:19 DIVISION SERVICE MANAGER CPT-79219 Pneumovax 23 15:17:19 DIVISION SERVICE MANAGER CPT-78679 Pneumovax 14:52:45 DIVISION SERVICE MANAGER CPT-08467 Venipuncture Draw Fee 14:06:30 DIVISION SERVICE MANAGER CPT-000 Give Appropriate Flu Vaccine 14:18:34 DIVISION SERVICE MANAGER 2 CPT-91288 Administration single or combination vac cine inc oral 14:46:00 DIVISION SERVICE MANAGER CPT-80959 Influenza split virus > age 3 14:46:00 DIVISION SERVICE MANAGER CPT-OV Office Visit 19:13:16 CDT CPT-33370 Zostavax 18:41:56 CDT CPT-08285 Administration single or combination vac cine inc oral 12:56:39 CDT CPT-98910 Zoster Vaccine (Zostavax) 12:56:39 CDT 2012 CPT-51428 Venipuncture Draw Fee 10:58:57 CDT CPT-27830 Sono pelvis non OB uterus ovaries cervix 17:45:04 CDT CPT-84069 Sono retroperitoneal complete kidneys an d bladder 17:14:36 CDT CPT-OV Office Visit 14:59:38 DIVISION SERVICE MANAGER CPT-J1070 Depo Testosterone 100 mg 14:50:13 CDT 03/05 CPT-83905 Abx/Therapy Injection 14:50:13 CDT CPT-13599 Administration single or combination vac cine inc oral 14:34:43 CDT CPT-55921 Influenza split virus > age 3 14:34:43 CDT CPT-J1070 Depo Testosterone 100 mg 17:37:13 CDT 01/11 CPT-47935 Abx/Therapy Injection 17:37:13 CDT CPT-69885 Venipuncture Draw Fee 16:30:13 CDT CPT-37230 Venipuncture Draw Fee 16:29:43 CDT CPT-J1070 Depo Testosterone 100 mg 14:45:38 CDT 01/11
--- OUTSIDE RECORDS SUMMARY | 2019-10-27 12:52 | XMS REPORT | Clinical Summary ---
Author Author Admin, Elba Lance Michelle [facility] Address Unknown Phone Unavailable Allergies, Adverse 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 MAINFRAME ARCHITECT Benign neoplasm of colon PERIPHERAL NEUROPATHY 356.9 [...] ronary atherosclerosis of unspecified type of vessel, [place] or graft OTH NONSPC ABN FINDNG RAD&OTH [...] day to coat the stomach 2015 SUCRALFATE [id number] No Longer Active Baltazar Childers MD Active PEN NEEDLES 31G X 6 MM MISC use 1 daily INSULIN PEN NEEDLE 85567902542 Active Bella Suarez MAINFRAME ARCHITECT Active TOUJEO SOLOSTAR 300 UNIT/ML SC SOPN 10 units SC daily INSULIN GLARGINE 27662431025 No Longer Active Martita Godinez RMA Active LANTUS SOLOSTAR 100 UNIT/ML SC SOPN 10 units SC daily INSULIN GLARGINE 97584262187 Active Baltazar Childers MD Active NAPROXEN SODIUM 220 MG ORAL TABS 1 three times a day as needed 2 NAPROXEN SODIUM 64897861005 No Longer Active Baltazar Childers MD Active ATORVASTATIN CALCIUM 20 MG ORAL TABS Take 1 tab daily ATORVASTATIN CALCIUM 45532220749 Active Baltazar Childers MD Active FUROSEMIDE 40 MG TABS Take one by mouth daily FUROSEMIDE 59784703177 Active Baltazar Childers MD Active LISINOPRIL 20 MG TABS Take one by mouth daily at bedtime LISINOPRIL 53139138524 Active KENDALL Juarez Active ONETOUCH ULTRA BLUE STRP Test twice a day GLUCO SE BLOOD 48312624435 No Longer Active Baltazar Childers MD Active TRUEPLUS LANCETS 33G MISC Test twice a day LANCET S 45053865293 Active KENDALL Juarez Active TRUEDRAW LANCING DEVICE MISC Test twice a day L ANCET DEVICES 28165423981 Active Baltazar Childers MD Active TRUETRACK TEST STRP Test twice a day GLUCOSE BLOO D 53490845729 Active KENDALL Juarez Active TRUETRACK BLOOD GLUCOSE W/DEVICE KIT Test twice a day BLOOD GLUCOSE MONITORING SUPPL 68345588360 Active Baltazar Childers MD Activ e HYDROCODONE-ACETAMINOPHEN 7.5-325 MG TABS Take 1 tab every 6-8 hour s PRN HYDROCODONE-ACETAMINOPHEN 94013774641 Active Shonna Parker APRN Active NORTRIPTYLINE HCL 50 MG CAPS 1 every night for neuropathy 4 NORTRIPTYLINE HCL 73907117165 Active Baltazar Childers MD Acti ve GABAPENTIN 300 MG CAPS 1 three times a day GABAPE NTIN 90764944702 Active Baltazar Childers MD Active GABAPENTIN 300 MG CAPS 1 po qd x 2 days, then 1 po BID x 2 d ays, then 1 po TID GABAPENTIN 76535105444 No Longer Active Baltazar silverman MD Active TRAMADOL HCL 50 MG TABS 1 twice a day as needed for pain TRAMADOL HCL 21074068964 Active Shonna Parker APRN Active NAPROXEN 500 MG TABS 1 tablet by mouth twice daily NAPROXEN 12789488168 No Longer Active Baltazar Childers MD Active PROAIR HFA 108 (90 BASE) MCG/ACT AERS 2 puffs four times a d ay as needed ALBUTEROL SULFATE 28381487493 Active KENDALL Juarez Active DEPO-TESTOSTERONE 200 MG/ML OIL as directed RUFINO TOSTERONE CYPIONATE 16576652182 No Longer Active Baltazar Childers MD Active LIPITOR 20 MG TABS Take one by mouth daily in evening ATORVASTATIN CALCIUM 31070212865 No Longer Active Baltazar Childers MD Activ e CRESTOR 10 MG TABS 1 by mouth every day R OSUVASTATIN CALCIUM 39275804655 No Longer Active Baltazar Childers MD Activ e PHENTERMINE HCL 37.5 MG TABS Take one by mouth daily 2 PHENTERMINE HCL 41854399709 No Longer Active Baltazar Childers MD Activ e ROBAXIN-750 750 MG TABS Take one by mouth daily ME THOCARBAMOL 82368976069 Active Baltazar Childers MD Active TIZANIDINE HCL 4 MG TABS 1 daily as needed for muscle spasm 2011 TIZANIDINE HCL 61661323296 No Longer Active Dawna Salazar RN Active [id number]-[id number]-[id number] 50-325-40 MG TABS 1 four time s a day as needed for heacache [id number]-ZSNOPLEE 59766209581 Active Shonna Parker APRN Active SUMATRIPTAN SUCCINATE 100 MG TABS 1 tablet by mouth at onset of migraine as needed SUMATRIPTAN SUCCINATE 12508907197 Active Shonna richey APRN Active LORATADINE 10 MG TABS Take one by mouth daily LORATADINE 12366450575 Active Baltazar Childers MD Active OMEPRAZOLE 20 MG CPDR Take one by mouth daily OMEPRAZOLE 49866931412 Active KENDALL Juarez Active HYDROXYZINE HCL 25 MG TABS Take one by mouth daily HYDROXYZINE HCL 27239799885 Active Baltazar Childers MD Active GLIPIZIDE 10 MG TABS 1 tablet by mouth twice daily GLIPIZIDE 07505420275 Active Baltazar Childers MD Active ALPRAZOLAM 1 MG TABS 1 tablet by mouth daily at bedtime for restles s leg ALPRAZOLAM 18475631043 Active Baltazar Childers MD Active METFORMIN HCL 1000 MG TABS Take one by mouth twice daily METFORMIN HCL 57475802140 Active Baltazar Childers MD Active TIZANIDINE HCL 4 MG TABS 1 daily as needed for muscle spasm 2011 TIZANIDINE HCL 4 MG TABS 822953 TIZANIDINE HCL Inactiv e PHENTERMINE HCL 37.5 MG TABS Take one by mouth daily 2 PHENTERMINE HCL 37.5 MG TABS 893510 PHENTERMINE HCL Inactive CRESTOR 10 MG TABS 1 by mouth every day C RESTOR 10 MG TABS 536153 ROSUVASTATIN CALCIUM Inactive LIPITOR 20 MG TABS Take one by mouth daily in evening LIPITOR 20 MG TABS 438183 ATORVASTATIN CALCIUM Inactive DEPO-TESTOSTERONE 200 MG/ML OIL as directed 8 DEPO-TESTOSTERONE 200 MG/ML OIL 921218 TESTOSTERONE CYPIONATE Inactive NAPROXEN 500 MG TABS 1 tablet by mouth twice daily 201 07/27/22 NAPROXEN 500 MG TABS 064253 NAPROXEN Inactive GABAPENTIN 300 MG CAPS 1 po qd x 2 days, then 1 po BID x 2 d ays, then 1 po TID GABAPENTIN 300 MG CAPS 515486 GABAPENTIN Inact amie ONETOUCH ULTRA BLUE STRP Test twice a day ONETOUCH ULTRA BLUE STRP GLUCOSE BLOOD Inactive NAPROXEN SODIUM 220 MG ORAL TABS 1 three times a day as needed 2 NAPROXEN SODIUM 220 MG ORAL TABS 110505 NAPROXEN SODIUM Inactive TOUJEO SOLOSTAR 300 UNIT/ML SC SOPN 10 units SC daily TOUJEO SOLOSTAR 300 UNIT/ML SC SOPN INSULIN GLARGINE Inac tive SUCRALFATE 1 GM TABS 1 four times a day to coat the stomach 2015 SUCRALFATE 1 GM TABS 977990 SUCRALFATE Inactive Immunizations Vaccine Administration Date Value Standard Floyd cription pneumococcal immunization administered Pneumovax 23 [CVX33] pneumococcal polysaccharide vaccine, 23 valent Seasonal influenza vaccine, injectable, containing preservative, for > 3 years old (Afluria, FluLaval, Fluzone, Fluvirin, Fluarix, Agriflu(>= 18 yo)) Fluzone (>3 yrs.) [[id number]] Influenza, seasonal, inject able Seasonal influenza vaccine, injectable, containing preservative, for > 3 years old (Afluria, FluLaval, Fluzone, Fluvirin, Fluarix, Agriflu(>= 18 yo)) Fluzone (>3 yrs.) [PWH550] Influenza, seasonal, inject able Vital Signs Date [...] C - Chemistry sodium, serum 139 mmol/L 760-051 0012/07/07 potassium, serum 4.5 mmol/L 3.5-5.2 chloride, serum [...] Panel - Chemistry sodium, serum 143 mmol/L 860-101 4627/12/19 carbon dioxide, venous blood 32.5 mmol/L 21.0-32 .0 potassium, serum 4.9 mmol/L 3.5-5.2 chloride, serum 101 mmol/L 98-107 blood glucose 129 mg/dL 65-110 urea nitrogen, blood 18 mg/dL 7-18 creatinine, serum 1.79 mg/dL 0.55-1.30 alanine aminotransferase (SGPT), serum 34 U/L 12-78 aspartate aminotransferase (SGOT), serum 26 U/L 15-37 calcium, serum 8.9 mg/dL 8.5-10.1 bilirubin, serum, total 0.30 mg/dL 0.00-1.00 cholesterol, serum 214 mg/dL 138-286 8431/12/19 triglyceride, serum, fasting 351 mg/dL 30-200 HDL cholesterol, serum 52 mg/dL 32-96 LDL cholesterol, serum 92 mg/dL 0-130 Lab Report: HGBA1C - Chemistry hemoglobin A1C, blood, as % of total hemoglobin 7.3 % 4.3-6.0 Lab Report: Renal Panel - Chemistry sodium, serum 141 mmol/L 524-278 0231/08/08 potassium, serum 4.9 mmol/L 3.5-5.2 chloride, serum 101 mmol/L 98-107 carbon dioxide, venous blood 34.1 mmol/L 21.0-32 .0 creatinine, serum 1.98 mg/dL 0.55-1.30 blood glucose 193 mg/dL 65-110 urea nitrogen, blood 30 mg/dL 7-18 calcium, serum 9.8 mg/dL 8.5-10.1 Encounters Code Encounter Date Provider Facility CPT-57673 Level 4 Est. Patient 15:44:38 CDT Shonna Parker APRN [facility] CPT-08003 Level 4 Est. Patient 11:34:17 CDT Baltazar Childers MD [facility] CPT-47287 Level 3 Est. Patient 16:40:40 CDT Baltazar Childers MD [facility] CPT-14915 Level 4 Est. Patient 10:41:24 CDT Baltazar Childers MD [facility] CPT-20722 Level 4 Est. Patient 16:01:48 CDT Baltazar Childers MD [facility] CPT-81390 Level 4 Est. Patient 16:54:07 SLURRY CONTROL OPERATOR HELPER Baltazar Childers MD [facility] CPT-36792 Level 4 Est. Patient 15:42:12 CDT Baltazar Childers MD [facility] CPT-07073 Level 4 Est. Patient 11:29:55 CDT Baltazar Childers MD [facility] CPT-55935 Level 4 Est. Patient 14:15:19 CDT Baltazar Childers MD [facility] CPT-83414 Level 4 Est. Patient 12:20:13 CDT Baltazar Childers MD [facility] CPT-22329 Level 4 Est. Patient 14:52:45 SLURRY CONTROL OPERATOR HELPER Baltazar Childers MD [facility] CPT-28631 Level 4 Est. Patient 14:18:34 SLURRY CONTROL OPERATOR HELPER Baltazar Childers MD [facility] CPT-79029 Level 4 Est. Patient 15:18:29 CDT Baltazar Childers MD [facility] CPT-61260 Level 3 Est. Patient 12:45:34 CDT Baltazar Childers MD [facility] CPT-68699 Level 3 Est. Patient 10:10:11 CDT Baltazar Childers MD [facility] CPT-11132 Level 3 Est. Patient 14:07:50 CDT Baltazar Childers MD [facility] CPT-60916 Level 4 Est. Patient 12:26:10 SLURRY CONTROL OPERATOR HELPER Baltazar Childers MD [facility] CPT-55589 Level 4 Est. Patient 14:45:38 CDT Baltazar Childers MD [facility] CPT-56435 Level 4 New Patient 12:30:48 CDT Baltazar hinton MD [facility] Procedures Code Procedure Name Date Entry Date Standard Desc ription CPT-73354 Lipid - LAB USE ONLY 17:39:15 SLURRY CONTROL OPERATOR HELPER 9 CPT-14900 HGBA1C - LAB USE ONLY 17:39:15 SLURRY CONTROL OPERATOR HELPER CPT-29109 CMP - LAB USE ONLY 17:39:14 SLURRY CONTROL OPERATOR HELPER CPT-73122 Venipuncture Draw Fee 17:39:14 SLURRY CONTROL OPERATOR HELPER CPT-15340 First Vx - Ix admin via ID I M or jet injects without counseling by physician 16:55:17 SLURRY CONTROL OPERATOR HELPER CPT-95835 Fluzone Quadrivalent Intramuscular Suspe nsion 0.5 ML 16:55:17 SLURRY CONTROL OPERATOR HELPER CPT-64639 Renal Panel - LAB USE ONLY 17:39:20 CDT 201 10/31/07 CPT-25442 CBC - LAB USE ONLY 17:39:20 CDT CPT-68525 Venipuncture Draw Fee 17:39:20 CDT CPT-96803 Venipuncture Draw Fee 14:33:30 CDT CPT-07030 Renal Panel - LAB USE ONLY 14:33:30 CDT 201 10/31/07 CPT-78050 CBC - LAB USE ONLY 14:33:29 CDT CPT-73765 Venipuncture Draw Fee 14:50:21 SLURRY CONTROL OPERATOR HELPER CPT-57744 Immunization Single Admin 17:35:35 CDT 2014 CPT-04938 Fluzone Quadrivalent preservative free ( >=3yrs.) 17:35:35 CDT CPT-45409 Venipuncture Draw Fee 12:10:27 SLURRY CONTROL OPERATOR HELPER CPT-62047 Fluzone Quadrivalent Intramuscular Suspe nsion 0.5 ML 10:49:13 CDT CPT-03645 First Vx Component - Ix admi n via ID IM or jet inj without physician counseling 15:17:19 SLURRY CONTROL OPERATOR HELPER CPT-82271 Pneumovax 23 15:17:19 SLURRY CONTROL OPERATOR HELPER CPT-11383 Pneumovax 14:52:45 SLURRY CONTROL OPERATOR HELPER CPT-73428 Venipuncture Draw Fee 14:06:30 SLURRY CONTROL OPERATOR HELPER CPT-000 Give Appropriate Flu Vaccine 14:18:34 SLURRY CONTROL OPERATOR HELPER 2 CPT-10890 Administration single or combination vac cine inc oral 14:46:00 SLURRY CONTROL OPERATOR HELPER CPT-95766 Influenza split virus > age 3 14:46:00 SLURRY CONTROL OPERATOR HELPER CPT-OV Office Visit 19:13:16 CDT CPT-46734 Zostavax 18:41:56 CDT CPT-49945 Administration single or combination vac cine inc oral 12:56:39 CDT CPT-45765 Zoster Vaccine (Zostavax) 12:56:39 CDT 2012 CPT-36655 Venipuncture Draw Fee 10:58:57 CDT CPT-49260 Sono pelvis non OB uterus ovaries cervix 17:45:04 CDT CPT-86291 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
[2019-10-27 12:53] LABS: PROTHROMBIN TIME PATIENT 13.9 SEC (12.2-14.7)
--- OUTSIDE RECORDS SUMMARY | 2019-10-27 12:53 | XMS REPORT | Clinical Summary ---
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 Benign neoplasm of colon PERIPHERAL NEUROPATHY 356.9 [...] ronary atherosclerosis of unspecified type of vessel, [place] or graft OTH NONSPC ABN FINDNG RAD&OTH [...] a day to coat the stomach SUCRALFATE 21742929486 Active Baltazar Childers MD Active PEN NEEDLES 31G X 6 MM MISC use 1 daily INSULIN PEN NEEDLE 69610800987 Active Martita Herbert RMA Active TOUJEO SOLOSTAR 300 UNIT/ML SC SOPN 10 units SC daily INSULIN GLARGINE 68561858975 No Longer Active Martita Herbert RMA Active LANTUS SOLOSTAR 100 UNIT/ML SC SOPN 10 units SC daily INSULIN GLARGINE 31933307822 Active KENDALL Juarez Active NAPROXEN SODIUM 220 MG ORAL TABS 1 three times a day as needed 2 NAPROXEN SODIUM 22754370826 No Longer Active Baltazar Childers MD Active ATORVASTATIN CALCIUM 20 MG ORAL TABS Take 1 tab daily ATORVASTATIN CALCIUM 93401644840 Active KENDALL Juarez Active FUROSEMIDE 40 MG TABS Take one by mouth daily FUROSEMIDE 55863260578 Active KENDALL Juarez Active LISINOPRIL 20 MG TABS Take one by mouth daily at bedtime LISINOPRIL 73848048815 Active Baltazar Childers MD Active ONETOUCH ULTRA BLUE STRP Test twice a day GLUCO SE BLOOD 87984632678 No Longer Active Baltazar Childers MD Active TRUEPLUS LANCETS 33G MISC Test twice a day LANCET S 96369147206 Active KENDALL Juarez Active TRUEDRAW LANCING DEVICE MISC Test twice a day L ANCET DEVICES 66193366727 Active Baltazar Childers MD Active TRUETRACK TEST STRP Test twice a day GLUCOSE BLOO D 94445647270 Active KENDALL Juarez Active TRUETRACK BLOOD GLUCOSE W/DEVICE KIT Test twice a day BLOOD GLUCOSE MONITORING SUPPL 39631543258 Active Baltazar Childers MD Activ e HYDROCODONE-ACETAMINOPHEN 7.5-325 MG TABS Take 1 tab every 6-8 hour s PRN HYDROCODONE-ACETAMINOPHEN 63030030658 Active Baltazar Childers MD Active NORTRIPTYLINE HCL 50 MG CAPS 1 every night for neuropathy 4 NORTRIPTYLINE HCL 98777604692 Active KENDALL Juarez Acti ve GABAPENTIN 300 MG CAPS 1 three times a day GABAPE NTIN 13353338241 Active Baltazar Childers MD Active GABAPENTIN 300 MG CAPS 1 po qd x 2 days, then 1 po BID x 2 d ays, then 1 po TID GABAPENTIN 52240623557 No Longer Active Baltazar silverman MD Active TRAMADOL HCL 50 MG TABS 1 twice a day as needed for pain TRAMADOL HCL 08471377188 Active Baltazar Childers MD Active NAPROXEN 500 MG TABS 1 tablet by mouth twice daily NAPROXEN 70666820036 No Longer Active Baltazar Childers MD Active PROAIR HFA 108 (90 BASE) MCG/ACT AERS 2 puffs four times a d ay as needed ALBUTEROL SULFATE 91504638741 Active Baltazar Childers MD Active DEPO-TESTOSTERONE 200 MG/ML OIL as directed RUFINO TOSTERONE CYPIONATE 30402389316 No Longer Active Baltazar Childers MD Active LIPITOR 20 MG TABS Take one by mouth daily in evening ATORVASTATIN CALCIUM 55866890321 No Longer Active Baltazar Childers MD Activ e CRESTOR 10 MG TABS 1 by mouth every day R OSUVASTATIN CALCIUM 85793768764 No Longer Active Baltazar Childers MD Activ e PHENTERMINE HCL 37.5 MG TABS Take one by mouth daily 2 PHENTERMINE HCL 60256692567 No Longer Active Baltazar Childers MD Activ e ROBAXIN-750 750 MG TABS Take one by mouth daily ME THOCARBAMOL 95781407990 Active Baltazar Childers MD Active TIZANIDINE HCL 4 MG TABS 1 daily as needed for muscle spasm 2011 TIZANIDINE HCL 32665382470 No Longer Active Dawna Salazar RN Active NCXNLCEVYT-JNLK-TWKZEIOA 50-325-40 MG TABS 1 four time s a day as needed for heacache FNKDNBOYXQ-BDNC-ZQHWLREE 46547315868 Active Baltazar Childers MD Active SUMATRIPTAN SUCCINATE 100 MG TABS 1 tablet by mouth at onset of migraine as needed SUMATRIPTAN SUCCINATE 43102331833 Active Bella STEPHEN RN Active LORATADINE 10 MG TABS Take one by mouth daily LORATADINE 59432118033 Active Baltazar Childers MD Active OMEPRAZOLE 20 MG CPDR Take one by mouth daily OMEPRAZOLE 49814488537 Active Argentina Lyons Active HYDROXYZINE HCL 25 MG TABS Take one by mouth daily HYDROXYZINE HCL 03079229925 Active Baltazar Childers MD Active GLIPIZIDE 10 MG TABS 1 tablet by mouth twice daily GLIPIZIDE 88522217694 Active KENDALL Juarez Active ALPRAZOLAM 1 MG TABS 1 tablet by mouth daily at bedtime for restles s leg ALPRAZOLAM 36917521733 Active Baltazar Childers MD Active METFORMIN HCL 1000 MG TABS Take one by mouth twice daily METFORMIN HCL 41478104213 Active Baltazar Childers MD Active TIZANIDINE HCL 4 MG TABS 1 daily as needed for muscle spasm 2011 TIZANIDINE HCL 4 MG TABS 714909 TIZANIDINE HCL Inactiv e PHENTERMINE HCL 37.5 MG TABS Take one by mouth daily 2 PHENTERMINE HCL 37.5 MG TABS 612609 PHENTERMINE HCL Inactive CRESTOR 10 MG TABS 1 by mouth every day C RESTOR 10 MG TABS 320048 ROSUVASTATIN CALCIUM Inactive LIPITOR 20 MG TABS Take one by mouth daily in evening LIPITOR 20 MG TABS 853218 ATORVASTATIN CALCIUM Inactive DEPO-TESTOSTERONE 200 MG/ML OIL as directed 8 DEPO-TESTOSTERONE 200 MG/ML OIL 852965 TESTOSTERONE CYPIONATE Inactive NAPROXEN 500 MG TABS 1 tablet by mouth twice daily 201 07/27/22 NAPROXEN 500 MG TABS 148734 NAPROXEN Inactive GABAPENTIN 300 MG CAPS 1 po qd x 2 days, then 1 po BID x 2 d ays, then 1 po TID GABAPENTIN 300 MG CAPS 261861 GABAPENTIN Inact amie ONETOUCH ULTRA BLUE STRP Test twice a day ONETOUCH ULTRA BLUE STRP GLUCOSE BLOOD Inactive NAPROXEN SODIUM 220 MG ORAL TABS 1 three times a day as needed 2 NAPROXEN SODIUM 220 MG ORAL TABS 915566 NAPROXEN SODIUM Inactive TOUJEO SOLOSTAR 300 UNIT/ML [...] Fluarix, Agriflu(>= 18 yo)) Fluzone (>3 yrs.) [HRF044] Influenza, seasonal, inject able Seasonal influenza vaccine, injectable, containing preservative, for > 3 years old (Afluria, FluLaval, Fluzone, Fluvirin, Fluarix, Agriflu(>= 18 yo)) Fluzone (>3 yrs.) [JPT418] Influenza, seasonal, inject able Vital Signs Date [...] C - Chemistry sodium, serum 139 mmol/L 610-178 0347/07/07 potassium, serum 4.5 mmol/L 3.5-5.2 chloride, serum [...] 7.9 % 4.3-6.0 sodium, serum 139 mmol/L 413-515 3936/02/04 potassium, serum 5.4 mmol/L 3.5-5.2 chloride, serum [...] Panel - Chemistry sodium, serum 138 mmol/L 516-822 3436/11/23 carbon dioxide, venous blood 32.4 mmol/L 21.0-32 .0 potassium, serum 5.7 mmol/L 3.5-5.2 chloride, serum 98 mmol/L 98-107 blood glucose 136 mg/dL 65-110 urea nitrogen, blood 18 mg/dL 7-18 creatinine, serum 1.71 mg/dL 0.55-1.30 alanine aminotransferase (SGPT), serum 71 U/L 12-78 aspartate aminotransferase (SGOT), serum 34 U/L 15-37 calcium, serum 9.4 mg/dL 8.5-10.1 bilirubin, serum, total 0.40 mg/dL 0.00-1.00 cholesterol, serum 405 mg/dL 802-100 7055/11/23 triglyceride, serum, fasting 709 mg/dL 30-200 HDL [...] Panel - Chemistry sodium, serum 141 mmol/L 966-689 1168/08/08 potassium, serum 4.9 mmol/L 3.5-5.2 chloride, serum [...] mg/dL Encounters Code Encounter Date Provider Facility CPT-02102 Level 4 Est. Patient 11:34:17 CDT Baltazar Childers MD [facility] CPT-34222 Level 3 Est. Patient 16:40:40 CDT Baltazar Childers MD [facility] CPT-93961 Level 4 Est. Patient 10:41:24 CDT Baltazar Childers MD [facility] CPT-93172 Level 4 Est. Patient 16:01:48 CDT Baltazar Childers MD [facility] CPT-75305 Level 4 Est. Patient 16:54:07 PRICING STRATEGIST Baltazar Childers MD [facility] CPT-93653 Level 4 Est. Patient 15:42:12 CDT Baltazar Childers MD [facility] CPT-44815 Level 4 Est. Patient 11:29:55 CDT Baltazar Childers MD [facility] CPT-80533 Level 4 Est. Patient 14:15:19 CDT Baltazar Childers MD [facility] CPT-72140 Level 4 Est. Patient 12:20:13 CDT Baltazar Childers MD [facility] CPT-77230 Level 4 Est. Patient 14:52:45 PRICING STRATEGIST Baltazar Childers MD [facility] CPT-15172 Level 4 Est. Patient 14:18:34 PRICING STRATEGIST Baltazar Childers MD [facility] CPT-53559 Level 4 Est. Patient 15:18:29 CDT Baltazar Childers MD [facility] CPT-74036 Level 3 Est. Patient 12:45:34 CDT Baltazar Childers MD [facility] CPT-02023 Level 3 Est. Patient 10:10:11 CDT Baltazar Childers MD [facility] CPT-44397 Level 3 Est. Patient 14:07:50 CDT Baltazar Childers MD [facility] CPT-26278 Level 4 Est. Patient 12:26:10 PRICING STRATEGIST Baltazar Childers MD [facility] CPT-83341 Level 4 Est. Patient 14:45:38 CDT Baltazar Childers MD [facility] CPT-95953 Level 4 New Patient 12:30:48 CDT Baltazar hinton MD [facility] Procedures Code Procedure Name Date Entry Date Standard Desc ription CPT-69217 Renal Panel - LAB USE ONLY 17:39:20 CDT 201 10/31/07 CPT-46534 CBC - LAB USE ONLY 17:39:20 CDT CPT-45501 Venipuncture Draw Fee 17:39:20 CDT CPT-75935 Venipuncture Draw Fee 14:33:30 CDT CPT-74839 Renal Panel - LAB USE ONLY 14:33:30 CDT 201 10/31/07 CPT-50429 CBC - LAB USE ONLY 14:33:29 CDT CPT-22962 Venipuncture Draw Fee 14:50:21 PRICING STRATEGIST CPT-29784 Immunization Single Admin 17:35:35 CDT 2014 CPT-49327 Fluzone Quadrivalent preservative free ( >=3yrs.) 17:35:35 CDT CPT-67132 Venipuncture Draw Fee 12:10:27 PRICING STRATEGIST CPT-60391 Fluzone Quadrivalent Intramuscular Suspe nsion 0.5 ML 10:49:13 CDT CPT-73169 First Vx Component - Ix admi n via ID IM or jet inj without physician counseling 15:17:19 PRICING STRATEGIST CPT-06942 Pneumovax 15:17:19 PRICING STRATEGIST CPT-21613 Pneumovax 14:52:45 PRICING STRATEGIST CPT-68174 Venipuncture Draw Fee 14:06:30 PRICING STRATEGIST CPT-000 Give Appropriate Flu Vaccine 14:18:34 PRICING STRATEGIST 2 CPT-95035 Administration single or combination vac cine inc oral 14:46:00 PRICING STRATEGIST CPT-73447 Influenza split virus > age 3 14:46:00 PRICING STRATEGIST CPT-OV Office Visit 19:13:16 CDT CPT-79164 Zostavax 18:41:56 CDT CPT-13402 Administration single or combination vac cine inc oral 12:56:39 CDT CPT-99196 Zoster Vaccine (Zostavax) 12:56:39 CDT 2012 CPT-75132 Venipuncture Draw Fee 10:58:57 CDT CPT-41373 Sono pelvis non OB uterus ovaries cervix 17:45:04 CDT CPT-97097 Sono retroperitoneal complete kidneys an d bladder 17:14:36 CDT CPT-OV Office Visit 14:59:38 PRICING STRATEGIST CPT-J1070 Depo Testosterone 100 mg 14:50:13 CDT 03/05 CPT-74378 Abx/Therapy Injection 14:50:13 CDT CPT-14849 Administration single or combination vac cine inc oral 14:34:43 CDT CPT-85689 Influenza split virus > age 3 14:34:43 CDT CPT-J1070 Depo Testosterone 100 mg 17:37:13 CDT 01/11 CPT-45430 Abx/Therapy Injection 17:37:13 CDT CPT-66893 Venipuncture Draw Fee 16:30:13 CDT CPT-36990 Venipuncture Draw Fee 16:29:43 CDT CPT-J1070 Depo Testosterone 100 mg 14:45:38 CDT 01/11
--- OUTSIDE RECORDS SUMMARY | 2019-10-27 12:53 | XMS REPORT | Clinical Summary ---
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 Benign neoplasm of colon PERIPHERAL NEUROPATHY [...] a day to coat the stomach SUCRALFATE 48101118365 Active Baltazar Childers MD Active PEN NEEDLES 31G X 6 MM MISC use 1 daily INSULIN PEN NEEDLE 05877359106 Active Martita Herbert RMA Active TOUJEO SOLOSTAR 300 UNIT/ML SC SOPN 10 units SC daily INSULIN GLARGINE 14383967050 No Longer Active Martita Herbert RMA Active LANTUS SOLOSTAR 100 UNIT/ML SC SOPN 10 units SC daily INSULIN GLARGINE 19847417589 Active KENDALL Juarez Active NAPROXEN SODIUM 220 MG ORAL TABS 1 three times a day as needed 2 NAPROXEN SODIUM 01322808626 No Longer Active Baltazar Childers MD Active ATORVASTATIN CALCIUM 20 MG ORAL TABS Take 1 tab daily ATORVASTATIN CALCIUM 82589979317 Active Baltazar Childers MD Active FUROSEMIDE 40 MG TABS Take one by mouth daily FUROSEMIDE 03133621330 Active Baltazar Childers MD Active LISINOPRIL 20 MG TABS Take one by mouth daily at bedtime LISINOPRIL 59516301669 Active Baltazar Childers MD Active ONETOUCH ULTRA BLUE STRP Test twice a day GLUCO SE BLOOD 72836710612 No Longer Active Baltazar Childers MD Active TRUEPLUS LANCETS 33G MISC Test twice a day LANCET S 24138835585 Active KENDALL Juarez Active TRUEDRAW LANCING DEVICE MISC Test twice a day L ANCET DEVICES 51880363489 Active Baltazar Childers MD Active TRUETRACK TEST STRP Test twice a day GLUCOSE BLOO D 68439125752 Active KENDALL Juarez Active TRUETRACK BLOOD GLUCOSE W/DEVICE KIT Test twice a day BLOOD GLUCOSE MONITORING SUPPL 19913066765 Active Baltazar Childers MD Activ e HYDROCODONE-ACETAMINOPHEN 7.5-325 MG TABS Take 1 tab every 6-8 hour s PRN HYDROCODONE-ACETAMINOPHEN 19921215732 Active Baltazar Childers MD Active NORTRIPTYLINE HCL 50 MG CAPS 1 every night for neuropathy 4 NORTRIPTYLINE HCL 36914155439 Active KENDALL Juarez Acti ve GABAPENTIN 300 MG CAPS 1 three times a day GABAPE NTIN 83266314639 Active Baltazar Childers MD Active GABAPENTIN 300 MG CAPS 1 po qd x 2 days, then 1 po BID x 2 d ays, then 1 po TID GABAPENTIN 56219229774 No Longer Active Baltazar silverman MD Active TRAMADOL HCL 50 MG TABS 1 twice a day as needed for pain TRAMADOL HCL 94310395561 Active Baltazar Childers MD Active NAPROXEN 500 MG TABS 1 tablet by mouth twice daily NAPROXEN 73778662472 No Longer Active Baltazar Childers MD Active PROAIR HFA 108 (90 BASE) MCG/ACT AERS 2 puffs four times a d ay as needed ALBUTEROL SULFATE 91203155917 Active Baltazar Childers MD Active DEPO-TESTOSTERONE 200 MG/ML OIL as directed RUFINO TOSTERONE CYPIONATE 31981183130 No Longer Active Baltazar Childers MD Active LIPITOR 20 MG TABS Take one by mouth daily in evening ATORVASTATIN CALCIUM 05086714953 No Longer Active Baltazar Childers MD Activ e CRESTOR 10 MG TABS 1 by mouth every day R OSUVASTATIN CALCIUM 20193758593 No Longer Active Baltazar Childers MD Activ e PHENTERMINE HCL 37.5 MG TABS Take one by mouth daily 2 PHENTERMINE HCL 07791633916 No Longer Active Baltazar Childers MD Activ e ROBAXIN-750 750 MG TABS Take one by mouth daily ME THOCARBAMOL 48122066750 Active Baltazar Childers MD Active TIZANIDINE HCL 4 MG TABS 1 daily as needed for muscle spasm 2011 TIZANIDINE HCL 59116462855 No Longer Active Dawna Salazar RN Active [id number] 50-325-40 MG TABS 1 four time s a day as needed for heacache [id number]-[id number]-HGZFNLAT 23356614512 Active Baltazar Childers MD Active SUMATRIPTAN SUCCINATE 100 MG TABS 1 tablet by mouth at onset of migraine as needed SUMATRIPTAN SUCCINATE 96030068017 Active Bella STEPHEN RN Active LORATADINE 10 MG TABS Take one by mouth daily LORATADINE 77476876507 Active Baltazar Childers MD Active OMEPRAZOLE 20 MG CPDR Take one by mouth daily OMEPRAZOLE 32492369794 Active Crystal Lyons Active HYDROXYZINE HCL 25 MG TABS Take one by mouth daily HYDROXYZINE HCL 90530771467 Active Baltazar Childers MD Active GLIPIZIDE 10 MG TABS 1 tablet by mouth twice daily GLIPIZIDE 63397687718 Active CÉSAR JuarezBetsey Active ALPRAZOLAM 1 MG TABS 1 tablet by mouth daily at bedtime for restles s leg ALPRAZOLAM 84142242294 Active Baltazar Childers MD Active METFORMIN HCL 1000 MG TABS Take one by mouth twice daily METFORMIN HCL 56387973364 Active Baltazar Childers MD Active TIZANIDINE HCL 4 MG TABS 1 daily as needed for muscle spasm 2011 TIZANIDINE HCL 4 MG TABS 850069 TIZANIDINE HCL Inactiv e PHENTERMINE HCL 37.5 MG TABS Take one by mouth daily 2 PHENTERMINE HCL 37.5 MG TABS 869400 PHENTERMINE HCL Inactive CRESTOR 10 MG TABS 1 by mouth every day C RESTOR 10 MG TABS 335751 ROSUVASTATIN CALCIUM Inactive LIPITOR 20 MG TABS Take one by mouth daily in evening LIPITOR 20 MG TABS 921022 ATORVASTATIN CALCIUM Inactive DEPO-TESTOSTERONE 200 MG/ML OIL as directed 8 DEPO-TESTOSTERONE 200 MG/ML OIL 424570 TESTOSTERONE CYPIONATE Inactive NAPROXEN 500 MG TABS 1 tablet by mouth twice daily 201 07/27/22 NAPROXEN 500 MG TABS 116652 NAPROXEN Inactive GABAPENTIN 300 MG CAPS 1 po qd x 2 days, then 1 po BID x 2 d ays, then 1 po TID GABAPENTIN 300 MG CAPS 341162 GABAPENTIN Inact amie ONETOUCH ULTRA BLUE STRP Test twice a day ONETOUCH ULTRA BLUE STRP GLUCOSE BLOOD Inactive NAPROXEN SODIUM 220 MG ORAL TABS 1 three times a day as needed 2 NAPROXEN SODIUM 220 MG ORAL TABS 166005 NAPROXEN SODIUM Inactive TOUJEO SOLOSTAR 300 UNIT/ML [...] Fluarix, Agriflu(>= 18 yo)) Fluzone (>3 yrs.) [[id number]] Influenza, seasonal, inject able Seasonal influenza vaccine, injectable, containing preservative, for > 3 years old (Afluria, FluLaval, Fluzone, Fluvirin, Fluarix, Agriflu(>= 18 yo)) Fluzone (>3 yrs.) [[id number]] Influenza, seasonal, inject able Vital Signs Date [...] C - Chemistry sodium, serum 139 mmol/L 214-847 1853/07/07 potassium, serum 4.5 mmol/L 3.5-5.2 chloride, serum [...] 7.9 % 4.3-6.0 sodium, serum 139 mmol/L 021-357 6061/02/04 potassium, serum 5.4 mmol/L 3.5-5.2 chloride, serum [...] Panel - Chemistry sodium, serum 138 mmol/L 219-521 7824/11/23 carbon dioxide, venous blood 32.4 mmol/L 21.0-32 .0 potassium, serum 5.7 mmol/L 3.5-5.2 chloride, serum 98 mmol/L 98-107 blood glucose 136 mg/dL 65-110 urea nitrogen, blood 18 mg/dL 7-18 creatinine, serum 1.71 mg/dL 0.55-1.30 alanine aminotransferase (SGPT), serum 71 U/L 12-78 aspartate aminotransferase (SGOT), serum 34 U/L 15-37 calcium, serum 9.4 mg/dL 8.5-10.1 bilirubin, serum, total 0.40 mg/dL 0.00-1.00 cholesterol, serum 405 mg/dL 774-869 1850/11/23 triglyceride, serum, fasting 709 mg/dL 30-200 HDL [...] Panel - Chemistry sodium, serum 141 mmol/L 410-580 6763/08/08 potassium, serum 4.9 mmol/L 3.5-5.2 chloride, serum [...] mg/dL Encounters Code Encounter Date Provider Facility CPT-74356 Level 4 Est. Patient 11:34:17 CDT Baltazar Childers MD [facility] CPT-31147 Level 3 Est. Patient 16:40:40 CDT Baltazar Childers MD [facility] CPT-07905 Level 4 Est. Patient 10:41:24 CDT Baltazar Childers MD [facility] CPT-14608 Level 4 Est. Patient 16:01:48 CDT Baltazar Childers MD [facility] CPT-55447 Level 4 Est. 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 Patient 15:42:12 CDT Baltazar Childers MD [facility] CPT-25041 Level 4 Est. Patient 11:29:55 CDT Baltazar Childers MD [facility] CPT-11428 Level 4 Est. Patient 14:15:19 CDT Baltazar Childers MD [facility] CPT-91027 Level 4 Est. Patient 12:20:13 CDT Baltazar Childers MD [facility] CPT-71805 Level 4 Est. Patient 14:52:45 MUNICIPAL MAINTENANCE WORKER Baltazar Childers MD [facility] CPT-57828 Level 4 Est. Patient 14:18:34 MUNICIPAL MAINTENANCE WORKER Baltazar Childers MD [facility] CPT-23403 Level 4 Est. Patient 15:18:29 CDT Baltazar Childers MD [facility] CPT-09697 Level 3 Est. Patient 12:45:34 CDT Baltazar Childers MD [facility] CPT-91685 Level 3 Est. Patient 10:10:11 CDT Baltazar Childers MD [facility] CPT-13692 Level 3 Est. Patient 14:07:50 CDT Baltazar Childers MD [facility] CPT-58955 Level 4 Est. Patient 12:26:10 MUNICIPAL MAINTENANCE WORKER Baltazar Childers MD [facility] CPT-11262 Level 4 Est. Patient 14:45:38 CDT Baltazar Childers MD [facility] CPT-38048 Level 4 New Patient 12:30:48 CDT Baltazar hinton MD [facility] Procedures Code Procedure Name Date Entry Date Standard Desc ription CPT-45748 Renal Panel - LAB USE ONLY 17:39:20 CDT 201 10/31/07 CPT-77169 CBC - LAB USE ONLY 17:39:20 CDT CPT-27737 Venipuncture Draw Fee 17:39:20 CDT CPT-61120 Venipuncture Draw Fee 14:33:30 CDT CPT-45140 Renal Panel - LAB USE ONLY 14:33:30 CDT 201 10/31/07 CPT-98740 CBC - LAB USE ONLY 14:33:29 CDT CPT-77539 Venipuncture Draw Fee 14:50:21 MUNICIPAL MAINTENANCE WORKER CPT-37293 Immunization Single Admin 17:35:35 CDT 2014 CPT-92348 Fluzone Quadrivalent preservative free ( >=3yrs.) 17:35:35 CDT CPT-83975 Venipuncture Draw Fee 12:10:27 MUNICIPAL MAINTENANCE WORKER CPT-54151 Fluzone Quadrivalent Intramuscular Suspe nsion 0.5 ML 10:49:13 CDT CPT-12320 First Vx Component - Ix admi n via ID IM or jet inj without physician counseling 15:17:19 MUNICIPAL MAINTENANCE WORKER CPT-11514 Pneumovax 15:17:19 MUNICIPAL MAINTENANCE WORKER CPT-01830 Pneumovax 14:52:45 MUNICIPAL MAINTENANCE WORKER CPT-67109 Venipuncture Draw Fee 14:06:30 MUNICIPAL MAINTENANCE WORKER CPT-000 Give Appropriate Flu Vaccine 14:18:34 MUNICIPAL MAINTENANCE WORKER 2 CPT-52464 Administration single or combination vac cine inc oral 14:46:00 MUNICIPAL MAINTENANCE WORKER CPT-09595 Influenza split virus > age 3 14:46:00 MUNICIPAL MAINTENANCE WORKER CPT-OV Office Visit 19:13:16 CDT CPT-48668 Zostavax 18:41:56 CDT CPT-63781 Administration single or combination vac cine inc oral 12:56:39 CDT CPT-60395 Zoster Vaccine (Zostavax) 12:56:39 CDT 2012 CPT-39668 Venipuncture Draw Fee 10:58:57 CDT CPT-81369 Sono pelvis non OB uterus ovaries cervix 17:45:04 CDT CPT-04452 Sono retroperitoneal complete kidneys an d bladder 17:14:36 CDT CPT-OV Office Visit 14:59:38 MUNICIPAL MAINTENANCE WORKER CPT-J1070 Depo Testosterone 100 mg 14:50:13 CDT 03/05 CPT-03122 Abx/Therapy Injection 14:50:13 CDT CPT-77107 Administration single or combination vac cine inc oral 14:34:43 CDT CPT-12342 Influenza split virus > age 3 14:34:43 CDT CPT-J1070 Depo Testosterone 100 mg 17:37:13 CDT 01/11 CPT-15233 Abx/Therapy Injection 17:37:13 CDT CPT-78711 Venipuncture Draw Fee 16:30:13 CDT CPT-02056 Venipuncture Draw Fee 16:29:43 CDT CPT-J1070 Depo Testosterone 100 mg 14:45:38 CDT 01/11
--- OUTSIDE RECORDS SUMMARY | 2019-10-27 12:53 | XMS REPORT | Clinical Summary ---
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 Benign neoplasm of colon PERIPHERAL NEUROPATHY [...] a day as needed 2 NAPROXEN SODIUM 59468053644 No Longer Active Baltazar Childers MD Active ATORVASTATIN CALCIUM 20 MG ORAL TABS Take 1 tab daily ATORVASTATIN CALCIUM 20407636698 Active Kelly Iraheta LPN Active FUROSEMIDE 40 MG TABS Take one by mouth daily FUROSEMIDE 65779721620 Active Baltazar Childers MD Active LISINOPRIL 20 MG TABS Take one by mouth daily at bedtime LISINOPRIL 33144805202 Active KENDALL Juarez Active ONETOUCH ULTRA BLUE STRP Test twice a day GLUCO SE BLOOD 00400205762 No Longer Active Baltazar Childers MD Active TRUEPLUS LANCETS 33G MISC Test twice a day LANCET S 53483725193 Active KENDALL Juarez Active TRUEDRAW LANCING DEVICE MISC Test twice a day L ANCET DEVICES 91577459162 Active Baltazar Childers MD Active TRUETRACK TEST STRP Test twice a day GLUCOSE BLOO D 11783263795 Active Baltazar Childers MD Active TRUETRACK BLOOD GLUCOSE W/DEVICE KIT Test twice a day BLOOD GLUCOSE MONITORING SUPPL 02756666359 Active Baltazar Childers MD Activ e HYDROCODONE-ACETAMINOPHEN 7.5-325 MG TABS Take 1 tab every 6-8 hour s PRN HYDROCODONE-ACETAMINOPHEN 29806798574 Active Baltazar Childers MD Active NORTRIPTYLINE HCL 50 MG CAPS 1 every night for neuropathy 4 NORTRIPTYLINE HCL 99088518074 Active Baltazar Childers MD Acti ve GABAPENTIN 300 MG CAPS 1 three times a day GABAPE NTIN 62462079102 Active KENDALL Juarez Active GABAPENTIN 300 MG CAPS 1 po qd x 2 days, then 1 po BID x 2 d ays, then 1 po TID GABAPENTIN 78870458170 No Longer Active Baltazar silverman MD Active TRAMADOL HCL 50 MG TABS 1 twice a day as needed for pain TRAMADOL HCL 63237267367 Active Baltazar Childers MD Active NAPROXEN 500 MG TABS 1 tablet by mouth twice daily NAPROXEN 43873933686 No Longer Active Baltazar Childers MD Active PROAIR HFA 108 (90 BASE) MCG/ACT AERS 2 puffs four times a d ay as needed ALBUTEROL SULFATE 29191738172 Active KENDALL Juarez Active DEPO-TESTOSTERONE 200 MG/ML OIL as directed RUFINO TOSTERONE CYPIONATE 43525629549 No Longer Active Baltazar Childers MD Active LIPITOR 20 MG TABS Take one by mouth daily in evening ATORVASTATIN CALCIUM 88025629873 No Longer Active Baltazar Childers MD Activ e CRESTOR 10 MG TABS 1 by mouth every day R OSUVASTATIN CALCIUM 98985374951 No Longer Active Baltazar Childers MD Activ e PHENTERMINE HCL 37.5 MG TABS Take one by mouth daily 2 PHENTERMINE HCL 24896874906 No Longer Active Baltazar Childers MD Activ e ROBAXIN-750 750 MG TABS Take one by mouth daily ME THOCARBAMOL 58713848202 Active Baltazar Childers MD Active TIZANIDINE HCL 4 MG TABS 1 daily as needed for muscle spasm 2011 TIZANIDINE HCL 14406462620 No Longer Active Dawna Salazar RN Active [id number] 50-325-40 MG TABS 1 four time s a day as needed for heacache [id number] 61904635333 Active Baltazar Childers MD Active SUMATRIPTAN SUCCINATE 100 MG TABS 1 tablet by mouth at onset of migraine as needed SUMATRIPTAN SUCCINATE 49776256440 Active KENDALL Juarez Active LORATADINE 10 MG TABS Take one by mouth daily LORATADINE 05551606969 Active Baltazar Childers MD Active OMEPRAZOLE 20 MG CPDR Take one by mouth daily OMEPRAZOLE 19340105968 Active Baltazar Childers MD Active HYDROXYZINE HCL 25 MG TABS Take one by mouth daily HYDROXYZINE HCL 10268665754 Active Baltazar Childers MD Active GLIPIZIDE 10 MG TABS 1 tablet by mouth twice daily GLIPIZIDE 62082090690 Active Bella Suarez APRN Active ALPRAZOLAM 1 MG TABS 1 tablet by mouth daily at bedtime for restles s leg ALPRAZOLAM 20850465090 Active Baltazar Childers MD Active METFORMIN HCL 1000 MG TABS Take one by mouth twice daily METFORMIN HCL 62445861527 Active Baltazar Childers MD Active TIZANIDINE HCL 4 MG TABS 1 daily as needed for muscle spasm 2011 TIZANIDINE HCL 4 MG TABS 428952 TIZANIDINE HCL Inactiv e PHENTERMINE HCL 37.5 MG TABS Take one by mouth daily 2 PHENTERMINE HCL 37.5 MG TABS 646460 PHENTERMINE HCL Inactive CRESTOR 10 MG TABS 1 by mouth every day C RESTOR 10 MG TABS ROSUVASTATIN CALCIUM Inactive LIPITOR 20 MG TABS Take one by mouth daily in evening LIPITOR 20 MG TABS 774320 ATORVASTATIN CALCIUM Inactive DEPO-TESTOSTERONE 200 MG/ML OIL as directed 8 DEPO-TESTOSTERONE 200 MG/ML OIL 848270 TESTOSTERONE CYPIONATE Inactive NAPROXEN 500 MG TABS 1 tablet by mouth twice daily 201 07/27/22 NAPROXEN 500 MG TABS 202579 NAPROXEN Inactive GABAPENTIN 300 MG CAPS 1 po qd x 2 days, then 1 po BID x 2 d ays, then 1 po TID GABAPENTIN 300 MG CAPS 010456 GABAPENTIN Inact amie ONETOUCH ULTRA BLUE STRP Test twice a day ONETOUCH ULTRA BLUE STRP GLUCOSE BLOOD Inactive NAPROXEN SODIUM 220 MG ORAL TABS 1 three times a day as needed 2 NAPROXEN SODIUM 220 MG ORAL TABS 134981 NAPROXEN SODIUM Inactive Immunizations Vaccine Administration Date Value Standard Floyd cription pneumococcal immunization administered Pneumovax 23 [CVX33] pneumococcal polysaccharide vaccine, 23 valent Seasonal influenza vaccine, injectable, containing preservative, for > 3 years old (Afluria, FluLaval, Fluzone, Fluvirin, Fluarix, Agriflu(>= 18 yo)) Fluzone (>3 yrs.) [[id number]] Influenza, seasonal, inject able Seasonal influenza vaccine, injectable, containing preservative, for > 3 years old (Afluria, FluLaval, Fluzone, Fluvirin, Fluarix, Agriflu(>= 18 yo)) Fluzone (>3 yrs.) [[id number]] Influenza, seasonal, inject able Vital Signs Date [...] - Chem istry sodium, serum 140 mmol/L 695-713 7563/05/05 potassium, serum 4.9 mmol/L 3.5-5.2 chloride, serum 99 mmol/L 98-107 carbon dioxide, venous blood 34.3 mmol/L 21.0-32 .0 blood glucose 132 mg/dL 65-110 calcium, serum 10.1 mg/dL 8.5-10.1 urea nitrogen, blood 23 mg/dL 7-18 creatinine, serum 2.00 mg/dL 0.60-1.30 Lab Report: CBC, HGBA1C, Renal Panel - C hemistry hemoglobin A1C, blood, as % of total hemoglobin 7.9 % 4.3-6.0 sodium, serum 139 mmol/L 767-198 4549/02/04 potassium, serum 5.4 mmol/L 3.5-5.2 chloride, serum [...] Comp. Metabolic Panel, Lipid Panel - Chemistry chloride, serum 98 mmol/L 98-107 potassium, serum 5.7 mmol/L 3.5-5.2 carbon dioxide, venous blood 32.4 mmol/L 21.0-32 .0 sodium, serum 138 mmol/L 774-533 8474/11/23 blood glucose 136 mg/dL 65-110 urea nitrogen, blood 18 mg/dL 7-18 creatinine, serum 1.71 mg/dL 0.55-1.30 alanine aminotransferase (SGPT), serum 71 U/L 12-78 aspartate aminotransferase (SGOT), serum 34 U/L 15-37 calcium, serum 9.4 mg/dL 8.5-10.1 bilirubin, serum, total 0.40 mg/dL 0.00-1.00 cholesterol, serum 405 mg/dL 336-167 7987/11/23 triglyceride, serum, fasting 709 mg/dL 30-200 HDL [...] mg/dL Encounters Code Encounter Date Provider Facility CPT-31267 Level 4 Est. 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 Patient 15:42:12 CDT Baltazar Childers MD [facility] CPT-48727 Level 4 Est. Patient 11:29:55 CDT Baltazar Childers MD [facility] CPT-88117 Level 4 Est. Patient 14:15:19 CDT Baltazar Childers MD [facility] CPT-22483 Level 4 Est. Patient 12:20:13 CDT Baltazar Childers MD [facility] CPT-58061 Level 4 Est. 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 Patient 14:18:34 FIELD ARTILLERY OPERATIONS SPECIALIST Baltazar Childers MD [facility] CPT-37909 Level 4 Est. Patient 15:18:29 CDT Baltazar Childers MD [facility] CPT-42065 Level 3 Est. Patient 12:45:34 CDT Baltazar Childers MD [facility] CPT-70480 Level 3 Est. Patient 10:10:11 CDT Baltazar Childers MD [facility] CPT-53002 Level 3 Est. Patient 14:07:50 CDT Baltazar Childers MD [facility] CPT-75840 Level 4 Est. 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 Patient 14:45:38 CDT Baltazar Childers MD [facility] CPT-94121 Level 4 New Patient 12:30:48 CDT Baltazar hinton MD [facility] Procedures Code Procedure Name Date Entry Date Standard Desc ription CPT-05579 Venipuncture Draw Fee 14:50:21 FIELD ARTILLERY OPERATIONS SPECIALIST CPT-66891 Immunization Single Admin 17:35:35 CDT 2014 CPT-25848 Fluzone Quadrivalent preservative free ( >=3yrs.) 17:35:35 CDT CPT-94446 Venipuncture Draw Fee 12:10:27 FIELD ARTILLERY OPERATIONS SPECIALIST CPT-85034 Fluzone Quadrivalent Intramuscular Suspe nsion 0.5 ML 10:49:13 CDT CPT-08019 First Vx Component - Ix admi n via ID IM or jet inj without physician counseling 15:17:19 FIELD ARTILLERY OPERATIONS SPECIALIST CPT-83394 Pneumovax 23 15:17:19 FIELD ARTILLERY OPERATIONS SPECIALIST CPT-73053 Pneumovax 14:52:45 FIELD ARTILLERY OPERATIONS SPECIALIST CPT-54120 Venipuncture Draw Fee 14:06:30 FIELD ARTILLERY OPERATIONS SPECIALIST CPT-000 Give Appropriate Flu Vaccine 14:18:34 FIELD ARTILLERY OPERATIONS SPECIALIST 2 CPT-18155 Administration single or combination vac cine inc oral 14:46:00 FIELD ARTILLERY OPERATIONS SPECIALIST CPT-69224 Influenza split virus > age 3 14:46:00 FIELD ARTILLERY OPERATIONS SPECIALIST CPT-OV Office Visit 19:13:16 CDT CPT-97222 Zostavax 18:41:56 CDT CPT-22897 Administration single or combination vac cine inc oral 12:56:39 CDT CPT-05362 Zoster Vaccine (Zostavax) 12:56:39 CDT 2012 CPT-25993 Venipuncture Draw Fee 10:58:57 CDT CPT-38929 Sono pelvis non OB uterus ovaries cervix 17:45:04 CDT CPT-74264 Sono retroperitoneal complete kidneys an d bladder 17:14:36 CDT CPT-OV Office Visit 14:59:38 FIELD ARTILLERY OPERATIONS SPECIALIST CPT-J1070 Depo Testosterone 100 mg 14:50:13 CDT 03/05 CPT-57715 Abx/Therapy Injection 14:50:13 CDT CPT-96500 Administration single or combination vac cine inc oral 14:34:43 CDT CPT-01440 Influenza split virus > age 3 14:34:43 CDT CPT-J1070 Depo Testosterone 100 mg 17:37:13 CDT 01/11 CPT-89553 Abx/Therapy Injection 17:37:13 CDT CPT-04395 Venipuncture Draw Fee 16:30:13 CDT CPT-10202 Venipuncture Draw Fee 16:29:43 CDT CPT-J1070 Depo Testosterone 100 mg 14:45:38 CDT 01/11
--- NOTE | 2019-10-27 12:54 | Diagnostic Imaging Report ---
INDICATION: Shortness of air. COMPARISON: 01/13/2019 FINDINGS: Single frontal radiograph view of the chest was obtained and demonstrates interval development of mild enlargement of the cardiac silhouette as well as moderate pulmonary vascular congestion. There is also diffuse prominence of pulmonary interstitium and scattered areas of patchy alveolar opacity within the bilateral mid and lower lung lima. No large effusion or pneumothorax seen. Osseous structures show no acute abnormalities. IMPRESSION: 1. Abnormal appearance of the chest suggestive of congestive heart failure with mixed interstitial and alveolar pulmonary edema. Dictated by: Dictated on workstation # [id number]
--- OUTSIDE RECORDS SUMMARY | 2019-10-27 12:54 | XMS REPORT | Clinical Summary ---
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 Benign neoplasm of colon PERIPHERAL NEUROPATHY [...] ronary atherosclerosis of unspecified type of vessel, [place] or graft OTH NONSPC ABN FINDNG RAD&OTH [...] tablet by mouth daily LE VOTHYROXINE SODIUM 85747524505 Active Carina Tucker LPN Active GLIPIZIDE 10 MG TAB take 2 tablets twice daily GLIPIZIDE 80156791602 Active Baltazar Childers MD Active SUCRALFATE 1 GM TABS 1 four times a day to coat the stomach 2015 SUCRALFATE 78868547855 No Longer Active Baltazar Childers MD Active PEN NEEDLES 31G X 6 MM MISC use 1 daily INSULIN PEN NEEDLE 92631176642 Active Bella Suarez FLIGHT TEST ENGINEER Active APARNAUONOFRE SOLOSTAR 300 UNIT/ML SC SOPN 10 units SC daily INSULIN GLARGINE 13354092637 No Longer Active Martita Godinez RMA Active LANT SOLOSTAR 100 UNIT/ML SC SOPN 10 units SC daily INSULIN GLARGINE 59762398205 Active Baltazar Childers MD Active NAPROXEN SODIUM 220 MG ORAL TABS 1 three times a day as needed 2 NAPROXEN SODIUM 25466971512 No Longer Active Baltazar Childers MD Active ATORVASTATIN CALCIUM 20 MG ORAL TABS Take 1 tab daily ATORVASTATIN CALCIUM 44850647852 Active Baltazar Childers MD Active FUROSEMIDE 40 MG TABS Take one by mouth daily FUROSEMIDE 97936066981 Active Baltazar Childers MD Active LISINOPRIL 20 MG TABS Take one by mouth daily at bedtime LISINOPRIL 46360562357 Active Baltazar Childers MD Active ONETOUCH ULTRA BLUE STRP Test twice a day GLUCO SE BLOOD 24428653688 No Longer Active Baltazar Childers MD Active TRUEPLUS LANCETS 33G MISC Test twice a day LANCET S 07464754583 Active KENDALL Juarez Active TRUEDRAW LANCING DEVICE MISC Test twice a day L ANCET DEVICES 07416001710 Active Baltazar Childers MD Active TRUETRACK TEST STRP Test twice a day GLUCOSE BLOO D 65371588190 Active KENDALL Juarez Active TRUEJONI BLOOD GLUCOSE W/DEVICE KIT Test twice a day BLOOD GLUCOSE MONITORING SUPPL 19935938030 Active Baltazar Childers MD Activ e HYDROCODONE-ACETAMINOPHEN 7.5-325 MG TABS Take 1 tab every 6-8 hour s PRN HYDROCODONE-ACETAMINOPHEN 20271660272 Active Baltazar Childers MD Active NORTRIPTYLINE HCL 50 MG CAPS 1 every night for neuropathy 4 NORTRIPTYLINE HCL 05544569014 Active Baltazar Childers MD Acti ve GABAPENTIN 300 MG CAPS 1 three times a day GABAPE NTIN 58141446964 Active Baltazar Childers MD Active GABAPENTIN 300 MG CAPS 1 po qd x 2 days, then 1 po BID x 2 d ays, then 1 po TID GABAPENTIN 72381983393 No Longer Active Baltazar silverman MD Active TRAMADOL HCL 50 MG TABS 1 twice a day as needed for pain TRAMADOL HCL 89663098640 Active Baltazar Childers MD Active NAPROXEN 500 MG TABS 1 tablet by mouth twice daily NAPROXEN 00564785544 No Longer Active Baltazar Childers MD Active PROAIR HFA 108 (90 BASE) MCG/ACT AERS 2 puffs four times a d ay as needed ALBUTEROL SULFATE 01185635392 Active Baltazar Childers MD Active DEPO-TESTOSTERONE 200 MG/ML OIL as directed RUFINO TOSTERONE CYPIONATE 96884571128 No Longer Active Baltazar Childers MD Active LIPITOR 20 MG TABS Take one by mouth daily in evening ATORVASTATIN CALCIUM 13446882824 No Longer Active Baltazar Childers MD Activ e CRESTOR 10 MG TABS 1 by mouth every day R OSUVASTATIN CALCIUM 04934003642 No Longer Active Baltazar Childers MD Activ e PHENTERMINE HCL 37.5 MG TABS Take one by mouth daily 2 PHENTERMINE HCL 23637241739 No Longer Active Baltazar Childers MD Activ e ROBAXIN-750 750 MG TABS Take one by mouth daily ME THOCARBAMOL 33083754749 Active Baltazar Childers MD Active TIZANIDINE HCL 4 MG TABS 1 daily as needed for muscle spasm 2011 TIZANIDINE HCL 97463036525 No Longer Active Dawna Salazar RN Active [id number] 50-325-40 MG TABS 1 four time s a day as needed for heacache [id number] 14722498526 Active Baltazar Childers MD Active SUMATRIPTAN SUCCINATE 100 MG TABS 1 tablet by mouth at onset of migraine as needed SUMATRIPTAN SUCCINATE 40102679959 Active Shonna Cram er FLIGHT TEST ENGINEER Active LORATADINE 10 MG TABS Take one by mouth daily LORATADINE 81201935952 Active KENDALL Juarez Active OMEPRAZOLE 20 MG CPDR Take one by mouth daily OMEPRAZOLE 17317296401 Active Baltazar Childers MD Active HYDROXYZINE HCL 25 MG TABS Take one by mouth daily HYDROXYZINE HCL 02119601725 Active Baltazar Childers MD Active ALPRAZOLAM 1 MG TABS 1 tablet by mouth daily at bedtime for restles s leg ALPRAZOLAM 33135077226 Active Baltazar Childers MD Active METFORMIN HCL 1000 MG TABS Take one by mouth twice daily METFORMIN HCL 70200214447 Active Baltazar Childers MD Active TIZANIDINE HCL 4 MG TABS 1 daily as needed for muscle spasm 2011 TIZANIDINE HCL 4 MG TABS 030724 TIZANIDINE HCL Inactiv e PHENTERMINE HCL 37.5 MG TABS Take one by mouth daily 2 PHENTERMINE HCL 37.5 MG TABS 851643 PHENTERMINE HCL Inactive CRESTOR 10 MG TABS 1 by mouth every day C RESTOR 10 MG TABS 040978 ROSUVASTATIN CALCIUM Inactive LIPITOR 20 MG TABS Take one by mouth daily in evening LIPITOR 20 MG TABS 536614 ATORVASTATIN CALCIUM Inactive DEPO-TESTOSTERONE 200 MG/ML OIL as directed 8 DEPO-TESTOSTERONE 200 MG/ML OIL 874507 TESTOSTERONE CYPIONATE Inactive NAPROXEN 500 MG TABS 1 tablet by mouth twice daily 201 07/27/22 NAPROXEN 500 MG TABS 311377 NAPROXEN Inactive GABAPENTIN 300 MG CAPS 1 po qd x 2 days, then 1 po BID x 2 d ays, then 1 po TID GABAPENTIN 300 MG CAPS 444645 GABAPENTIN Inact amie ONETOUCH ULTRA BLUE STRP Test twice a day ONETOUCH ULTRA BLUE STRP GLUCOSE BLOOD Inactive NAPROXEN SODIUM 220 MG ORAL TABS 1 three times a day as needed 2 NAPROXEN SODIUM 220 MG ORAL TABS 046733 NAPROXEN SODIUM Inactive TOURINKUO SOLOSTAR 300 UNIT/ML SC SOPN 10 units SC daily CELINA PARIKH 300 UNIT/ML SC SOPN INSULIN GLARGINE Inac tive SUCRALFATE 1 GM TABS 1 four times a day to coat the stomach 2015 SUCRALFATE 1 GM TABS 722056 SUCRALFATE Inactive Immunizations Vaccine Administration Date Value Standard Floyd cription pneumococcal immunization administered Pneumovax 23 [CVX33] pneumococcal polysaccharide vaccine, 23 valent Seasonal influenza vaccine, injectable, containing preservative, for > 3 years old (Afluria, FluLaval, Fluzone, Fluvirin, Fluarix, Agriflu(>= 18 yo)) Fluzone (>3 yrs.) [PBF600] Influenza, seasonal, inject able Seasonal influenza vaccine, injectable, containing preservative, for > 3 years old (Afluria, FluLaval, Fluzone, Fluvirin, Fluarix, Agriflu(>= 18 yo)) Fluzone (>3 yrs.) [EFV263] Influenza, seasonal, inject able Vital Signs Date [...] C - Chemistry sodium, serum 139 mmol/L 426-630 2107/07/07 potassium, serum 4.5 mmol/L 3.5-5.2 chloride, serum [...] Panel - Chemistry sodium, serum 143 mmol/L 545-163 2290/12/19 carbon dioxide, venous blood 32.5 mmol/L 21.0-32 .0 potassium, serum 4.9 mmol/L 3.5-5.2 chloride, serum 101 mmol/L 98-107 blood glucose 129 mg/dL 65-110 urea nitrogen, blood 18 mg/dL 7-18 creatinine, serum 1.79 mg/dL 0.55-1.30 alanine aminotransferase (SGPT), serum 34 U/L 12-78 aspartate aminotransferase (SGOT), serum 26 U/L 15-37 calcium, serum 8.9 mg/dL 8.5-10.1 bilirubin, serum, total 0.30 mg/dL 0.00-1.00 cholesterol, serum 214 mg/dL 381-531 9547/12/19 triglyceride, serum, fasting 351 mg/dL 30-200 HDL [...] Panel - Chemistry sodium, serum 141 mmol/L 298-220 0259/08/08 potassium, serum 4.9 mmol/L 3.5-5.2 chloride, serum 101 mmol/L 98-107 carbon dioxide, venous blood 34.1 mmol/L 21.0-32 .0 creatinine, serum 1.98 mg/dL 0.55-1.30 blood glucose 193 mg/dL 65-110 urea nitrogen, blood 30 mg/dL 7-18 calcium, serum 9.8 mg/dL 8.5-10.1 Encounters Code Encounter Date Provider Facility CPT-92594 Level 4 Est. Patient 14:22:31 CDT Baltazar Childers MD [facility] CPT-68692 Level 4 Est. Patient 15:44:38 CDT Shonna Parker APRN [facility] CPT-08815 Level 4 Est. Patient 11:34:17 CDT Baltazar Childers MD [facility]-46160 Level 3 Est. Patient 16:40:40 CDT Baltazar Childers MD [facility]-69932 Level 4 Est. Patient 10:41:24 CDT Baltazar Childers MD [facility]-58378 Level 4 Est. Patient 16:01:48 CDT Baltazar Childers MD [facility]-15883 Level 4 Est. Patient 16:54:07 GENERAL MATCHER Baltazar Childers MD [facility]-27424 Level 4 Est. Patient 15:42:12 CDT Baltazar Childers MD [facility]-93027 Level 4 Est. Patient 11:29:55 CDT Baltazar Childers MD [facility]-60116 Level 4 Est. Patient 14:15:19 CDT Baltazar Childers MD [facility]-29709 Level 4 Est. Patient 12:20:13 CDT Baltazar Childers MD [facility]-42434 Level 4 Est. Patient 14:52:45 GENERAL MATCHER Baltazar Childers MD [facility]-54559 Level 4 Est. Patient 14:18:34 GENERAL MATCHER Baltazar Childers MD [facility]-16780 Level 4 Est. Patient 15:18:29 CDT Baltazar Childers MD [facility]-35219 Level 3 Est. Patient 12:45:34 CDT Baltazar Childers MD [facility]-72384 Level 3 Est. Patient 10:10:11 CDT Baltazar Childers MD [facility]-31523 Level 3 Est. Patient 14:07:50 CDT Baltazar Childers MD [facility]-62852 Level 4 Est. Patient 12:26:10 GENERAL MATCHER Baltazar Childers MD [facility] CPT-48090 Level 4 Est. Patient 14:45:38 CDT Baltazar Childers MD [facility] CPT-05913 Level 4 New Patient 12:30:48 CDT Baltazar hinton MD [facility] Procedures Code Procedure Name Date Entry Date Standard Desc ription CPT-04797 Lipid - LAB USE ONLY 17:39:15 GENERAL MATCHER 9 CPT-53525 HGBA1C - LAB USE ONLY 17:39:15 GENERAL MATCHER CPT-21650 CMP - LAB USE ONLY 17:39:14 GENERAL MATCHER CPT-21764 Venipuncture Draw Fee 17:39:14 GENERAL MATCHER CPT-88290 First Vx - Ix admin via ID I M or jet injects without counseling by physician 16:55:17 GENERAL MATCHER CPT-54218 Fluzone Quadrivalent Intramuscular Suspe nsion 0.5 ML 16:55:17 GENERAL MATCHER CPT-31385 Renal Panel - LAB USE ONLY 17:39:20 CDT 201 10/31/07 CPT-04528 CBC - LAB USE ONLY 17:39:20 CDT CPT-74109 Venipuncture Draw Fee 17:39:20 CDT CPT-89751 Venipuncture Draw Fee 14:33:30 CDT CPT-47280 Renal Panel - LAB USE ONLY 14:33:30 CDT 201 10/31/07 CPT-23238 CBC - LAB USE ONLY 14:33:29 CDT CPT-66916 Venipuncture Draw Fee 14:50:21 GENERAL MATCHER CPT-53641 Immunization Single Admin 17:35:35 CDT 2014 CPT-19278 Fluzone Quadrivalent preservative free ( >=3yrs.) 17:35:35 CDT CPT-44832 Venipuncture Draw Fee 12:10:27 GENERAL MATCHER CPT-38640 Fluzone Quadrivalent Intramuscular Suspe nsion 0.5 ML 10:49:13 CDT CPT-61538 First Vx Component - Ix admi n via ID IM or jet inj without physician counseling 15:17:19 GENERAL MATCHER CPT-96182 Pneumovax 15:17:19 GENERAL MATCHER CPT-78316 Pneumovax 14:52:45 GENERAL MATCHER CPT-12498 Venipuncture Draw Fee 14:06:30 GENERAL MATCHER CPT-000 Give Appropriate Flu Vaccine 14:18:34 GENERAL MATCHER 2 CPT-47993 Administration single or combination vac cine inc oral 14:46:00 GENERAL MATCHER CPT-63423 Influenza split virus > age 3 14:46:00 GENERAL MATCHER CPT-OV Office Visit 19:13:16 CDT CPT-00007 Zostavax 18:41:56 CDT CPT-62459 Administration single or combination vac cine inc oral 12:56:39 CDT CPT-16313 Zoster Vaccine (Zostavax) 12:56:39 CDT 2012 CPT-80787 Venipuncture Draw Fee 10:58:57 CDT CPT-79394 Sono pelvis non OB uterus ovaries cervix 17:45:04 CDT CPT-16748 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
--- OUTSIDE RECORDS SUMMARY | 2019-10-27 12:54 | XMS REPORT | Clinical Summary ---
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5-325 MG TABS Take 1 tab every 6-8 hour s PRN HYDROCODONE-ACETAMINOPHEN 51554187239 Active Baltazar Childers MD Active NORTRIPTYLINE HCL 50 MG CAPS 1 every night for neuropathy 4 NORTRIPTYLINE HCL 30406604589 Active Bella Suarez APRN Active GABAPENTIN 300 MG CAPS 1 three times a day GABAPE NTIN 10795353974 Active Baltazar Childers MD Active GABAPENTIN 300 MG CAPS 1 po qd x 2 days, then 1 po BID x 2 d ays, then 1 po TID GABAPENTIN 10895404613 No Longer Active Baltazar silverman MD Active TRAMADOL HCL 50 MG TABS 1 twice a day as needed for pain TRAMADOL HCL 22436665206 Active Baltazar Childers MD Active NAPROXEN 500 MG TABS 1 tablet by mouth twice daily NAPROXEN 31845051643 No Longer Active Baltazar Childers MD Active PROAIR HFA 108 (90 BASE) MCG/ACT AERS 2 puffs four times a d ay as needed ALBUTEROL SULFATE 74333150531 Active Baltazar Childers MD Active DEPO-TESTOSTERONE 200 MG/ML OIL as directed RUFINO TOSTERONE CYPIONATE 75634550823 No Longer Active Baltazar Childers MD Active LIPITOR 20 MG TABS Take one by mouth daily in evening ATORVASTATIN CALCIUM 34012572027 No Longer Active Baltazar Childers MD Activ e CRESTOR 10 MG TABS 1 by mouth every day R OSUVASTATIN CALCIUM 77038234237 No Longer Active Baltazar Childers MD Activ e PHENTERMINE HCL 37.5 MG TABS Take one by mouth daily 2 PHENTERMINE HCL 17015720331 No Longer Active Baltazar Childers MD Activ e ROBAXIN-750 750 MG TABS Take one by mouth daily ME THOCARBAMOL 28066251158 Active Baltazar Childers MD Active TIZANIDINE HCL 4 MG TABS 1 daily as needed for muscle spasm 2011 TIZANIDINE HCL 93178231377 No Longer Active Dawna Salazar RN Active Integr[employer] Wave TechnologiesUCH ULTRA BLUE STRP Test twice a day GLUCO SE BLOOD 88579231420 Active Baltazar Childers MD Active [id number]-CETN-[id number] 50-325-40 MG TABS 1 four time s a day as needed for heacache [id number] 05588690930 Active Baltazar Childers MD Active SUMATRIPTAN SUCCINATE 100 MG TABS 1 tablet by mouth at onset of migraine as needed SUMATRIPTAN SUCCINATE 44136326395 Active Baltazar barron MD Active LORATADINE 10 MG TABS Take one by mouth daily LORATADINE 90568852806 Active Baltazar Childers MD Active FUROSEMIDE 40 MG TABS Take one by mouth daily FUROSEMIDE 87309518015 Active Baltazar Childers MD Active LISINOPRIL 20 MG TABS Take one by mouth daily at bedtime LISINOPRIL 24318789969 Active Bella Suarez APRN Active OMEPRAZOLE 20 MG CPDR Take one by mouth daily OMEPRAZOLE 33100219647 Active Baltazar Childers MD Active HYDROXYZINE HCL 25 MG TABS Take one by mouth daily HYDROXYZINE HCL 57038134805 Active Baltazar Childers MD Active GLIPIZIDE 10 MG TABS 1 tablet by mouth twice daily GLIPIZIDE 30370124079 Active Bella Suarez APRN Active ALPRAZOLAM 1 MG TABS 1 tablet by mouth daily at bedtime for restles s leg ALPRAZOLAM 74920463993 Active Baltazar Childers MD Active METFORMIN HCL 1000 MG TABS Take one by mouth twice daily METFORMIN HCL 80208882949 Active Bella Suarez CLIENT CARE MANAGER Active TIZANIDINE HCL 4 MG TABS 1 daily as needed for muscle spasm 2011 TIZANIDINE HCL 4 MG TABS 780306 TIZANIDINE HCL Inactiv e PHENTERMINE HCL 37.5 MG TABS Take one by mouth daily 2 PHENTERMINE HCL 37.5 MG TABS 793601 PHENTERMINE HCL Inactive CRESTOR 10 MG TABS 1 by mouth every day C RESTOR 10 MG TABS ROSUVASTATIN CALCIUM Inactive LIPITOR 20 MG TABS Take one by mouth daily in evening LIPITOR 20 MG TABS 855310 ATORVASTATIN CALCIUM Inactive DEPO-TESTOSTERONE 200 MG/ML OIL as directed 8 DEPO-TESTOSTERONE 200 MG/ML OIL 419317 TESTOSTERONE CYPIONATE Inactive NAPROXEN 500 MG TABS 1 tablet by mouth twice daily 201 07/27/22 NAPROXEN 500 MG TABS 871546 NAPROXEN Inactive GABAPENTIN 300 MG CAPS 1 po qd x 2 days, then 1 po BID x 2 d ays, then 1 po TID GABAPENTIN 300 MG CAPS 174001 GABAPENTIN Inact amie Immunizations Vaccine Administration Date Value Standard Floyd cription pneumococcal immunization administered Pneumovax 23 [CVX33] pneumococcal polysaccharide vaccine, 23 valent Seasonal influenza vaccine, injectable, containing preservative, for > 3 years old (Afluria, FluLaval, Fluzone, Fluvirin, Fluarix, Agriflu(>= 18 yo)) Fluzone (>3 yrs.) [RZX607] Influenza, seasonal, inject able Seasonal influenza vaccine, injectable, containing preservative, for > 3 years old (Afluria, FluLaval, Fluzone, Fluvirin, Fluarix, Agriflu(>= 18 yo)) Fluzone (>3 yrs.) [KFK363] Influenza, seasonal, inject able Vital Signs Date [...] Panel - Chemistry sodium, serum 139 mmol/L 346-944 2532/01/20 potassium, serum 5.3 mmol/L 3.5-5.2 chloride, serum [...] mg/g mg/g{creat} 0-29 cholesterol, serum 319 mg/dL 497-404 0860/08/21 triglyceride, serum, fasting 546 mg/dL 30-200 HDL cholesterol, serum 39 mg/dL 32-96 LDL cholesterol, serum 167.00 mg/dL 5.00-130.00 hemoglobin A1C, blood, as % of total hemoglobin 7.7 % 4.3-6.0 sodium, serum 138 mmol/L 512-615 3659/08/21 potassium, serum 4.3 mmol/L 3.5-5.2 chloride, serum [...] 0-19 Encounters Code Encounter Date Provider Facility CPT-82285 Level 4 Est. Patient 14:15:19 CDT Baltazar Childers MD [facility] CPT-01920 Level 4 Est. Patient 12:20:13 CDT Baltazar Childers MD [facility] CPT-62240 Level 4 Est. Patient 14:52:45 LAMINATION TECHNICIAN Baltazar Childers MD [facility] CPT-59612 Level 4 Est. Patient 14:18:34 LAMINATION TECHNICIAN Baltazar Childers MD [facility] CPT-36953 Level 4 Est. Patient 15:18:29 CDT Baltazar Childers MD [facility] CPT-62112 Level 3 Est. Patient 12:45:34 CDT Baltazar Childers MD [facility] CPT-24940 Level 3 Est. Patient 10:10:11 CDT Baltazar Childers MD [facility] CPT-63526 Level 3 Est. Patient 14:07:50 CDT Baltazar Childers MD [facility] CPT-31067 Level 4 Est. Patient 12:26:10 LAMINATION TECHNICIAN Baltazar Childers MD [facility] CPT-23717 Level 4 Est. Patient 14:45:38 CDT Baltzaar Childers MD [facility] CPT-15258 Level 4 New Patient 12:30:48 CDT Baltazar hinton MD [facility] Procedures Code Procedure Name Date Entry Date Standard Desc ription CPT-42061 Venipuncture Draw Fee 12:10:27 LAMINATION TECHNICIAN CPT-55943 Fluzone Quadrivalent Intramuscular Suspe nsion 0.5 ML 10:49:13 CDT CPT-75767 First Vx Component - Ix admi n via ID IM or jet inj without physician counseling 15:17:19 LAMINATION TECHNICIAN CPT-94023 Pneumovax 23 15:17:19 LAMINATION TECHNICIAN CPT-90757 Pneumovax 14:52:45 LAMINATION TECHNICIAN CPT-21386 Venipuncture Draw Fee 14:06:30 LAMINATION TECHNICIAN CPT-000 Give Appropriate Flu Vaccine 14:18:34 LAMINATION TECHNICIAN 2 CPT-19297 Administration single or combination vac cine inc oral 14:46:00 LAMINATION TECHNICIAN CPT-55135 Influenza split virus > age 3 14:46:00 LAMINATION TECHNICIAN CPT-OV Office Visit 19:13:16 CDT CPT-70654 Zostavax 18:41:56 CDT CPT-51537 Administration single or combination vac cine inc oral 12:56:39 CDT CPT-52413 Zoster Vaccine (Zostavax) 12:56:39 CDT 2012 CPT-29692 Venipuncture Draw Fee 10:58:57 CDT CPT-55880 Sono pelvis non OB uterus ovaries cervix 17:45:04 CDT CPT-68758 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
--- OUTSIDE RECORDS SUMMARY | 2019-10-27 12:54 | XMS REPORT | Clinical Summary ---
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 Benign neoplasm of colon PERIPHERAL NEUROPATHY [...] ronary atherosclerosis of unspecified type of vessel, [place] or graft OTH NONSPC ABN FINDNG [...] three times a day 201 12/03/26 GABAPENTIN 96338336470 No Longer Active Baltazar Childers MD Activ e LISINOPRIL 20 MG ORAL TABLET 1 tablet by mouth daily at night 2016 LISINOPRIL 45661333182 Active Baltazar Childers MD Active ZITHROMAX Z-ISAIAS 250 MG ORAL TABLET Take two tablets to day and then 1 tablet daily for 4 days AZITHROMYCIN 15731025803 No Longer A ctive Baltazar Childers MD Active LANTUS SOLOSTAR 100 UNIT/ML SUBCUTANEOUS SOLUTION PEN- INJECTOR 30 units SC daily INSULIN GLARGINE 33604820993 Active Baltazar Childers MD Active AMLODIPINE BESYLATE 5 MG ORAL TABLET 1 tab daily for HTN AMLODIPINE BESYLATE 18283483057 Active Baltazar Childers MD Active SYNTHROID 100 MCG ORAL TABLET 1 tablet by mouth daily LEVOTHYROXINE SODIUM 05541141151 Active Baltazar Childers MD Active GLIPIZIDE 10 MG ORAL TABLET take 2 tablets twice daily GLIPIZIDE 27019382796 Active Baltazar Childers MD Active SUCRALFATE 1 GM ORAL TABLET 1 four times a day to coat the stoma ch SUCRALFATE 75833491101 No Longer Active Baltazar Childers MD Active PEN NEEDLES 31G X 6 MM use 1 daily INSULIN PEN NE EDLE 22551408874 Active KENDALL Juarez Active CELINA SOLOSTNAKITA 300 UNIT/ML SUBCUTANEOUS SOLUTION PEN- INJECTOR 10 units SC daily INSULIN GLARGINE 22508450606 No Longer Active Rola Godinez RMA Active NAPROXEN SODIUM 220 MG ORAL TABLET 1 three times a day as needed NAPROXEN SODIUM 86474918480 No Longer Active Baltazar Childers MD Active ATORVASTATIN CALCIUM 20 MG ORAL TABLET Take 1 tab daily ATORVASTATIN CALCIUM 14898644801 Active Baltazar Childers MD A ctive FUROSEMIDE 40 MG ORAL TABLET Take one by mouth daily FUROSEMIDE 87076510625 Active Baltazar Childers MD Active LISINOPRIL 20 MG ORAL TABLET Take one by mouth daily at bedtime LISINOPRIL 94374466546 No Longer Active Baltazar Childers MD Active ONETOUCH ULTRA BLUE IN VITRO STRIP Test twice a day 07/11/11 GLUCOSE BLOOD 58706977419 No Longer Active Baltazar Childers MD Acti ve TRUEPLUS LANCETS 33G Test twice a day LANCETS 1636874 3132 Active KENDALL Juarez Active TRUEDRAW LANCING DEVICE Test twice a day LANCET DEVICES 70085925154 Active Baltazar Childers MD Active TRUETRACK TEST IN VITRO STRIP Test twice a day GLUCOSE BLOOD 24748055995 Active KENDALL Juarez Active TRUETRACK BLOOD GLUCOSE w/Device KIT Test twice a day BLOOD GLUCOSE MONITORING SUPPL 22590821845 Active Baltazar Childers MD Activ e HYDROCODONE-ACETAMINOPHEN 7.5-325 MG ORAL TABLET Take 1 tab every 6-8 hours PRN HYDROCODONE-ACETAMINOPHEN 14508342005 Active Baltazar Nickerson MD Active NORTRIPTYLINE HCL 50 MG ORAL CAPSULE 1 every night for neuropathy 2 NORTRIPTYLINE HCL 47255025786 Active Baltazar Childers MD Acti ve GABAPENTIN 300 MG ORAL CAPSULE 1 po qd x 2 days, then 1 po BID x 2 days, then 1 po TID GABAPENTIN 49935093661 No Longer Active Baltazar Childers MD Active TRAMADOL HCL 50 MG ORAL TABLET 1 twice a day as needed for pain 201 07/27/28 TRAMADOL HCL 90216779152 Active Baltazar Childers MD Active NAPROXEN 500 MG ORAL TABLET 1 tablet by mouth twice daily NAPROXEN 91247180209 No Longer Active Baltazar Childers MD Active PROAIR HFA 108 (90 Base) MCG/ACT INHALATION AEROSOL SO LUTION 2 puffs four times a day as needed ALBUTEROL SULFATE 86224875178 Active KENDALL Bowie Active DEPO-TESTOSTERONE 200 MG/ML INTRAMUSCULAR SOLUTION as directed TESTOSTERONE CYPIONATE 18851477154 No Longer Active Baltazar Childers MD Active LIPITOR 20 MG ORAL TABLET Take one by mouth daily in evening ATORVASTATIN CALCIUM 73536039168 No Longer Active Baltazar Childers MD Active CRESTOR 10 MG ORAL TABLET 1 by mouth every day ROSUVASTATIN CALCIUM 23688937769 No Longer Active Baltazar Childers MD Active PHENTERMINE HCL 37.5 MG ORAL TABLET Take one by mouth daily PHENTERMINE HCL 05819347117 No Longer Active Baltazar Childers MD Ac tive ROBAXIN-750 750 MG ORAL TABLET Take one by mouth daily METHOCARBAMOL 47972109760 Active Baltazar Childers MD Active TIZANIDINE HCL 4 MG ORAL TABLET 1 daily as needed for muscle spa sm TIZANIDINE HCL 66243930537 No Longer Active Dawna Salazar RN Active COISXWFCRH-LHET-ZVRNKYLU 50-325-40 MG ORAL TABLET 1 fo ur times a day as needed for heacache DOOCAZHRWL-KELX-PLBQLONN 71526918703 Active Baltazar Childers MD Active SUMATRIPTAN SUCCINATE 100 MG ORAL TABLET 1 tablet by m outh at onset of migraine as needed SUMATRIPTAN SUCCINATE 79083774446 Active KENDALL Restrepo Active LORATADINE 10 MG ORAL TABLET Take one by mouth daily LORATADINE 99584174293 Active Baltazar Childers MD Active OMEPRAZOLE 20 MG ORAL CAPSULE DELAYED RELEASE Take one by mouth jostin ly OMEPRAZOLE 76280857030 Active Baltazar Childers MD Active HYDROXYZINE HCL 25 MG ORAL TABLET Take one by mouth daily HYDROXYZINE HCL 00604258027 Active Baltazar Childers MD Active ALPRAZOLAM 1 MG ORAL TABLET 1 [facility] 08977880274 Active Baltazar Childers MD Active METFORMIN HCL 1000 MG ORAL TABLET Take one by mouth twice daily METFORMIN HCL 26274096590 Active Baltazar Childers MD Active TIZANIDINE HCL 4 MG ORAL TABLET 1 daily as needed for muscle spa sm TIZANIDINE HCL 4 MG ORAL TABLET 665594 TIZANIDINE HCL Inactive PHENTERMINE HCL 37.5 MG ORAL TABLET Take one by mouth daily PHENTERMINE HCL 37.5 MG ORAL TABLET 301150 PHENTERMINE HCL Inac tive CRESTOR 10 MG ORAL TABLET 1 by mouth every day CRESTOR 10 MG ORAL TABLET 564830 ROSUVASTATIN CALCIUM Inactive LIPITOR 20 MG ORAL TABLET Take one by mouth daily in evening LIPITOR 20 MG ORAL TABLET 268442 ATORVASTATIN CALCIUM Inactive DEPO-TESTOSTERONE 200 MG/ML INTRAMUSCULAR SOLUTION as directed DEPO-TESTOSTERONE 200 MG/ML INTRAMUSCULAR SOLUTION 827642 RUFINO TOSTERONE CYPIONATE Inactive NAPROXEN 500 MG ORAL TABLET 1 tablet by mouth twice daily NAPROXEN 500 MG ORAL TABLET 286573 NAPROXEN Inactive GABAPENTIN 300 MG ORAL CAPSULE 1 po qd x 2 days, then 1 po BID x 2 days, then 1 po TID GABAPENTIN 300 MG ORAL CAPSULE 374095 GABAP ENTIN Inactive ONETOUCH ULTRA BLUE IN VITRO STRIP Test twice a day 07/11/11 ONETOUCH ULTRA BLUE IN VITRO STRIP GLUCOSE BLOOD Inact amie NAPROXEN SODIUM 220 MG ORAL TABLET 1 three times a day as needed NAPROXEN SODIUM 220 MG ORAL TABLET 861149 NAPROXEN SODI UM Inactive TOUJEO SOLOSTAR 300 UNIT/ML SUBCUTANEOUS SOLUTION PEN- INJECTOR 10 units SC daily TOUJEO SOLOSTAR 300 UNIT/ML SUBCUTANEOUS SOLUTION PEN-INJECTOR INSULIN GLARGINE Inactive SUCRALFATE 1 GM ORAL TABLET 1 four times a day to coat the stoma ch SUCRALFATE 1 GM ORAL TABLET 398510 SUCRALFATE Inac tive GABAPENTIN 300 MG ORAL CAPSULE 1 three times a day 201 12/03/26 GABAPENTIN 300 MG ORAL CAPSULE 225696 GABAPENTIN Inactive ZITHROMAX Z-ISAIAS 250 MG ORAL TABLET Take two tablets to day and then 1 tablet daily for 4 days ZITHROMAX Z-ISAIAS 250 MG ORAL TAB LET 317038 AZITHROMYCIN Inactive Immunizations Vaccine Administration Date Value Standard Floyd cription pneumococcal immunization administered Pneumovax 23 [CVX33] pneumococcal polysaccharide vaccine, 23 valent Seasonal influenza vaccine, injectable, containing preservative, for > 3 years old (Afluria, FluLaval, Fluzone, Fluvirin, Fluarix, Agriflu(>= 18 yo)) Fluzone (>3 yrs.) [JQJ707] Influenza, seasonal, inject able Seasonal influenza vaccine, injectable, containing preservative, for > 3 years old (Afluria, FluLaval, Fluzone, Fluvirin, Fluarix, Agriflu(>= 18 yo)) Fluzone (>3 yrs.) [HHL030] Influenza, seasonal, inject able Vital Signs Date [...] - Chem istry sodium, serum 139 mmol/L 785-295 8507/10/03 urea nitrogen, blood 19 mg/dL 7-18 creatinine, [...] Panel - Chemistry sodium, serum 142 mmol/L 385-372 3411/08/11 potassium, serum 4.8 mmol/L 3.5-5.2 chloride, serum [...] 11 .6-14.8 platelet count 304 10^3/MM^3 10*3/mm3 935-679 5010/08/11 erythrocyte (RBC) count 4.02 10^6/MM^3 10*6/mm3 3.80-5.8 0 hemoglobin, blood 12.5 g/dL 12.0-16.0 hematocrit, blood 38.4 % 37.0-47.0 mean corpuscular volume, RBC 96 fL 80-97 mean corpuscular hemoglobin, RBC 31.1 pg 27. 0-31.2 Lab Report: HGBA1C - Chemistry hemoglobin A1C, blood, as % of total hemoglobin 8.2 % 4.3-6.0 Lab Report: Lipid Panel, Thyroid Stimula ting Hormone (L) - Chemistry cholesterol, serum 209 mg/dL 424-360 8743/12/27 triglyceride, serum, fasting 329 mg/dL 30-200 HDL cholesterol, serum 56 mg/dL 32-60 LDL cholesterol, serum 87 mg/dL 0-130 TSH 3.60 m[iU]/mL 0.36-3.74 Encounters Code Encounter Date Provider Facility CPT-40394 Level 4 Est. Patient 17:05:37 CDT Baltazar Chiledrs MD [facility] CPT-45241 Level 4 Est. Patient 16:21:19 [employer] Baltazar Childers MD [facility] CPT-09710 Level 4 Est. Patient 12:25:11 CDT Baltazar Childers MD [facility] CPT-35575 Level 4 Est. Patient 14:22:31 CDT Baltazar Childers MD [facility]-01670 Level 4 Est. Patient 15:44:38 CDT Shonna Parker APRN [facility]-29287 Level 4 Est. Patient 11:34:17 CDT Baltazar Childers MD [facility]-16281 Level 3 Est. Patient 16:40:40 CDT Baltazar Childers MD [facility]-38993 Level 4 Est. Patient 10:41:24 CDT Baltazar Childers MD [facility]-92841 Level 4 Est. Patient 16:01:48 CDT Baltazar Childers MD [facility]-14619 Level 4 Est. Patient 16:54:07 [employer] Baltazar Childers MD [facility]-92535 Level 4 Est. Patient 15:42:12 CDT Baltazar Childers MD [facility] CPT-69687 Level 4 Est. Patient 11:29:55 CDT Baltazar Childers MD [facility] CPT-07757 Level 4 Est. Patient 14:15:19 CDT Baltazar Childers MD [facility]-47243 Level 4 Est. Patient 12:20:13 CDT Baltazar Childers MD [facility]-66801 Level 4 Est. Patient 14:52:45 [employer] Baltazar Childers MD [facility] CPT-09659 Level 4 Est. Patient 14:18:34 [employer] Baltazar Childers MD [facility]-23933 Level 4 Est. Patient 15:18:29 CDT Baltazar Childers MD [facility]-58143 Level 3 Est. Patient 12:45:34 CDT Baltazar Childers MD [facility]-97734 Level 3 Est. Patient 10:10:11 CDT Baltazar Childers MD [facility] CPT-54664 Level 3 Est. Patient 14:07:50 CDT Baltazar Childers MD [facility] CPT-06509 Level 4 Est. Patient 12:26:10 [employer] Baltazar Childers MD [facility] CPT-56659 Level 4 Est. Patient 14:45:38 CDT Baltazar Childers MD [facility] CPT-70432 Level 4 New Patient 12:30:48 CDT Baltazar hinton MD [facility] Procedures Code Procedure Name Date Entry Date Standard Desc ription CPT-37029 First Vx - Ix admin via ID I M or jet injects without counseling by physician 13:08:59 CDT CPT-71859 Fluzone Quadrivalent Intramuscular Suspe nsion 0.5 ML 13:08:59 CDT CPT-82083 Venipuncture Draw Fee 12:04:12 CDT CPT-08256 Lipid - LAB USE ONLY 17:39:15 [employer] 9 CPT-40371 HGBA1C - LAB USE ONLY 17:39:15 [employer] CPT-14911 CMP - LAB USE ONLY 17:39:14 [employer] CPT-73570 Venipuncture Draw Fee 17:39:14 [employer] CPT-85445 First Vx - Ix admin via ID I M or jet injects without counseling by physician 16:55:17 [employer] CPT-07999 Fluzone Quadrivalent Intramuscular Suspe nsion 0.5 ML 16:55:17 [employer] CPT-28791 Renal Panel - LAB USE ONLY 17:39:20 CDT 201 10/31/07 CPT-77852 CBC - LAB USE ONLY 17:39:20 CDT CPT-31522 Venipuncture Draw Fee 17:39:20 CDT CPT-37356 Venipuncture Draw Fee 14:33:30 CDT CPT-80021 Renal Panel - LAB USE ONLY 14:33:30 CDT 201 10/31/07 CPT-97162 CBC - LAB USE ONLY 14:33:29 CDT CPT-50448 Venipuncture Draw Fee 14:50:21 [employer] CPT-84635 Immunization Single Admin 17:35:35 CDT 2014 CPT-12367 Fluzone Quadrivalent preservative free ( >=3yrs.) 17:35:35 CDT CPT-69416 Venipuncture Draw Fee 12:10:27 [employer] CPT-30838 Fluzone Quadrivalent Intramuscular Suspe nsion 0.5 ML 10:49:13 CDT CPT-25179 First Vx Component - Ix admi n via ID IM or jet inj without physician counseling 15:17:19 [employer] CPT-71931 Pneumovax 23 15:17:19 [employer] CPT-72226 Pneumovax 14:52:45 [employer] CPT-07392 Venipuncture Draw Fee 14:06:30 [employer] CPT-000 Give Appropriate Flu Vaccine 14:18:34 [employer] 2 CPT-30613 Administration single or combination vac cine inc oral 14:46:00 [employer] CPT-09202 Influenza split virus > age 3 14:46:00 [employer] CPT-OV Office Visit 19:13:16 CDT CPT-45858 Zostavax 18:41:56 CDT CPT-89495 Administration single or combination vac cine inc oral 12:56:39 CDT CPT-80122 Zoster Vaccine (Zostavax) 12:56:39 CDT 2012 CPT-76843 Venipuncture Draw Fee 10:58:57 CDT CPT-85238 Sono pelvis non OB uterus ovaries cervix 17:45:04 CDT CPT-58463 Sono retroperitoneal complete kidneys an d bladder 17:14:36 CDT CPT-OV Office Visit 14:59:38 [employer] CPT-J1070 Depo Testosterone 100 mg 14:50:13 CDT 03/05 CPT-38039 Abx/Therapy Injection 14:50:13 CDT CPT-41306 Administration single or combination vac cine inc oral 14:34:43 CDT CPT-04672 Influenza split virus > age 3 14:34:43 CDT CPT-J1070 Depo Testosterone 100 mg 17:37:13 CDT 01/11 CPT-57478 Abx/Therapy Injection 17:37:13 CDT CPT-28280 Venipuncture Draw Fee 16:30:13 CDT CPT-72629 Venipuncture Draw Fee 16:29:43 CDT CPT-J1070 Depo Testosterone 100 mg 14:45:38 CDT 01/11
--- OUTSIDE RECORDS SUMMARY | 2019-10-27 12:54 | XMS REPORT | Clinical Summary ---
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 ASSISTANT Benign neoplasm of colon PERIPHERAL NEUROPATHY [...] day to coat the stomach 2015 SUCRALFATE [id number] No Longer Active Baltazar Childers MD Active PEN NEEDLES 31G X 6 MM MISC use 1 daily INSULIN PEN NEEDLE 01124771073 Active Bella Suarez LABORATORY CHEMICAL ASSISTANT Active TOUJEO SOLOSTAR 300 UNIT/ML SC SOPN 10 units SC daily INSULIN GLARGINE 07146853429 No Longer Active Martita Godinez RMA Active LANTUS SOLOSTAR 100 UNIT/ML SC SOPN 10 units SC daily INSULIN GLARGINE 09705808116 Active Baltazar Childers MD Active NAPROXEN SODIUM 220 MG ORAL TABS 1 three times a day as needed 2 NAPROXEN SODIUM 90570182669 No Longer Active Baltazar Childers MD Active ATORVASTATIN CALCIUM 20 MG ORAL TABS Take 1 tab daily ATORVASTATIN CALCIUM 51621771934 Active Baltazar Childers MD Active FUROSEMIDE 40 MG TABS Take one by mouth daily FUROSEMIDE 29770071687 Active Baltazar Childers MD Active LISINOPRIL 20 MG TABS Take one by mouth daily at bedtime LISINOPRIL 68909157817 Active Baltazar Childers MD Active ONETOUCH ULTRA BLUE STRP Test twice a day GLUCO SE BLOOD 42457462705 No Longer Active Baltazar Childers MD Active TRUEPLUS LANCETS 33G MISC Test twice a day LANCET S 45914689322 Active KENDALL Juarez Active TRUEDRAW LANCING DEVICE MISC Test twice a day L ANCET DEVICES 80734843039 Active Baltazar Childers MD Active TRUETRACK TEST STRP Test twice a day GLUCOSE BLOO D 44051502398 Active KENDALL Juarez Active TRUETRACK BLOOD GLUCOSE W/DEVICE KIT Test twice a day BLOOD GLUCOSE MONITORING SUPPL 94927910336 Active Baltazar Childers MD Activ e HYDROCODONE-ACETAMINOPHEN 7.5-325 MG TABS Take 1 tab every 6-8 hour s PRN HYDROCODONE-ACETAMINOPHEN 73853445148 Active Baltazar Childers MD Active NORTRIPTYLINE HCL 50 MG CAPS 1 every night for neuropathy 4 NORTRIPTYLINE HCL 86079924521 Active Baltazar Childers MD Acti ve GABAPENTIN 300 MG CAPS 1 three times a day GABAPE NTIN 32034078443 Active Baltazar Childers MD Active GABAPENTIN 300 MG CAPS 1 po qd x 2 days, then 1 po BID x 2 d ays, then 1 po TID GABAPENTIN 37163654953 No Longer Active Baltazar silverman MD Active TRAMADOL HCL 50 MG TABS 1 twice a day as needed for pain TRAMADOL HCL 34363139998 Active Baltazar Childers MD Active NAPROXEN 500 MG TABS 1 tablet by mouth twice daily NAPROXEN 59029764938 No Longer Active Baltazar Childers MD Active PROAIR HFA 108 (90 BASE) MCG/ACT AERS 2 puffs four times a d ay as needed ALBUTEROL SULFATE 90737750542 Active KENDALL Juarez Active DEPO-TESTOSTERONE 200 MG/ML OIL as directed RUFINO TOSTERONE CYPIONATE 02699900353 No Longer Active Baltazar Childers MD Active LIPITOR 20 MG TABS Take one by mouth daily in evening ATORVASTATIN CALCIUM 65042695654 No Longer Active Baltazar Childers MD Activ e CRESTOR 10 MG TABS 1 by mouth every day R OSUVASTATIN CALCIUM 21931840377 No Longer Active Baltazar Childers MD Activ e PHENTERMINE HCL 37.5 MG TABS Take one by mouth daily 2 PHENTERMINE HCL 23530236076 No Longer Active Baltazar Childers MD Activ e ROBAXIN-750 750 MG TABS Take one by mouth daily ME THOCARBAMOL 72449290489 Active Baltazar Childers MD Active TIZANIDINE HCL 4 MG TABS 1 daily as needed for muscle spasm 2011 TIZANIDINE HCL 14496971055 No Longer Active Dawna Salazar RN Active [id number] 50-325-40 MG TABS 1 four time s a day as needed for heacache [id number] 55965219417 Active Baltazar Childers MD Active SUMATRIPTAN SUCCINATE 100 MG TABS 1 tablet by mouth at onset of migraine as needed SUMATRIPTAN SUCCINATE 15544221785 Active Baltazar bynum MD Active LORATADINE 10 MG TABS Take one by mouth daily LORATADINE 82648497718 Active Baltazar Childers MD Active OMEPRAZOLE 20 MG CPDR Take one by mouth daily OMEPRAZOLE 87476894678 Active Baltazar Childers MD Active HYDROXYZINE HCL 25 MG TABS Take one by mouth daily HYDROXYZINE HCL 85148208744 Active Baltazar Childers MD Active GLIPIZIDE 10 MG TABS 1 tablet by mouth twice daily GLIPIZIDE 48256875078 Active Baltazar Childers MD Active ALPRAZOLAM 1 MG TABS 1 tablet by mouth daily at bedtime for restles s leg ALPRAZOLAM 20440759457 Active Baltazar Childers MD Active METFORMIN HCL 1000 MG TABS Take one by mouth twice daily METFORMIN HCL 49073564122 Active Baltazar Childers MD Active TIZANIDINE HCL 4 MG TABS 1 daily as needed for muscle spasm 2011 TIZANIDINE HCL 4 MG TABS 297426 TIZANIDINE HCL Inactiv e PHENTERMINE HCL 37.5 MG TABS Take one by mouth daily 2 PHENTERMINE HCL 37.5 MG TABS 554942 PHENTERMINE HCL Inactive CRESTOR 10 MG TABS 1 by mouth every day C RESTOR 10 MG TABS 502915 ROSUVASTATIN CALCIUM Inactive LIPITOR 20 MG TABS Take one by mouth daily in evening LIPITOR 20 MG TABS 012375 ATORVASTATIN CALCIUM Inactive DEPO-TESTOSTERONE 200 MG/ML OIL as directed 8 DEPO-TESTOSTERONE 200 MG/ML OIL 153269 TESTOSTERONE CYPIONATE Inactive NAPROXEN 500 MG TABS 1 tablet by mouth twice daily 201 07/27/22 NAPROXEN 500 MG TABS 605065 NAPROXEN Inactive GABAPENTIN 300 MG CAPS 1 po qd x 2 days, then 1 po BID x 2 d ays, then 1 po TID GABAPENTIN 300 MG CAPS 162233 GABAPENTIN Inact amie ONETOUCH ULTRA BLUE STRP Test twice a day ONETOUCH ULTRA BLUE STRP GLUCOSE BLOOD Inactive NAPROXEN SODIUM 220 MG ORAL TABS 1 three times a day as needed 2 NAPROXEN SODIUM 220 MG ORAL TABS 286299 NAPROXEN SODIUM Inactive TOUJEO SOLOSTAR 300 UNIT/ML SC SOPN 10 units SC daily TOUJEO SOLOSTAR 300 UNIT/ML SC SOPN INSULIN GLARGINE Inac tive SUCRALFATE 1 GM TABS 1 four times a day to coat the stomach 2015 SUCRALFATE 1 GM TABS 794380 SUCRALFATE Inactive Immunizations Vaccine Administration Date Value Standard Floyd cription pneumococcal immunization administered Pneumovax 23 [CVX33] pneumococcal polysaccharide vaccine, 23 valent Seasonal influenza vaccine, injectable, containing preservative, for > 3 years old (Afluria, FluLaval, Fluzone, Fluvirin, Fluarix, Agriflu(>= 18 yo)) Fluzone (>3 yrs.) [[id number]] Influenza, seasonal, inject able Seasonal influenza vaccine, injectable, containing preservative, for > 3 years old (Afluria, FluLaval, Fluzone, Fluvirin, Fluarix, Agriflu(>= 18 yo)) Fluzone (>3 yrs.) [[id number]] Influenza, seasonal, inject able Vital Signs Date [...] C - Chemistry sodium, serum 139 mmol/L 740-835 3290/07/07 potassium, serum 4.5 mmol/L 3.5-5.2 chloride, serum [...] 7.9 % 4.3-6.0 sodium, serum 139 mmol/L 730-658 1848/02/04 potassium, serum 5.4 mmol/L 3.5-5.2 chloride, serum [...] Panel - Chemistry sodium, serum 141 mmol/L 834-053 0581/08/08 potassium, serum 4.9 mmol/L 3.5-5.2 chloride, serum [...] mg/dL Encounters Code Encounter Date Provider Facility CPT-36288 Level 4 Est. Patient 11:34:17 CDT Baltazar Childers MD [facility] CPT-16313 Level 3 Est. Patient 16:40:40 CDT Baltazar Childers MD [facility]-05515 Level 4 Est. Patient 10:41:24 CDT Baltazar Childers MD [facility]-21042 Level 4 Est. Patient 16:01:48 CDT Baltazar Childers MD [facility]-34541 Level 4 Est. Patient 16:54:07 RESEARCH ENGINEER Baltazar Childers MD [facility]-96905 Level 4 Est. Patient 15:42:12 CDT Baltazar Childers MD [facility] CPT-34801 Level 4 Est. Patient 11:29:55 CDT Baltazar Childers MD [facility]-54829 Level 4 Est. Patient 14:15:19 CDT Baltazar Childers MD [facility]-98801 Level 4 Est. Patient 12:20:13 CDT Baltazar Childers MD [facility]-06366 Level 4 Est. Patient 14:52:45 RESEARCH ENGINEER Baltazar Childers MD [facility] CPT-75043 Level 4 Est. Patient 14:18:34 RESEARCH ENGINEER Baltazar Childers MD [facility]-95431 Level 4 Est. Patient 15:18:29 CDT Baltazar Childers MD [facility]-75049 Level 3 Est. Patient 12:45:34 CDT Baltazar Childers MD [facility] CPT-09190 Level 3 Est. Patient 10:10:11 CDT Baltazar Childers MD [facility] CPT-80242 Level 3 Est. Patient 14:07:50 CDT Baltazar Childers MD [facility]-30029 Level 4 Est. Patient 12:26:10 RESEARCH ENGINEER Baltazar Childers MD [facility]-02031 Level 4 Est. Patient 14:45:38 CDT Baltazar Childers MD [facility] CPT-36868 Level 4 New Patient 12:30:48 CDT Baltazar hinton MD [facility] Procedures Code Procedure Name Date Entry Date Standard Desc ription CPT-48150 First Vx - Ix admin via ID I M or jet injects without counseling by physician 16:55:17 RESEARCH ENGINEER CPT-26346 Fluzone Quadrivalent Intramuscular Suspe nsion 0.5 ML 16:55:17 RESEARCH ENGINEER CPT-08955 Renal Panel - LAB USE ONLY 17:39:20 CDT 201 10/31/07 CPT-92681 CBC - LAB USE ONLY 17:39:20 CDT CPT-52752 Venipuncture Draw Fee 17:39:20 CDT CPT-98403 Venipuncture Draw Fee 14:33:30 CDT CPT-01347 Renal Panel - LAB USE ONLY 14:33:30 CDT 201 10/31/07 CPT-23537 CBC - LAB USE ONLY 14:33:29 CDT CPT-79711 Venipuncture Draw Fee 14:50:21 RESEARCH ENGINEER CPT-86299 Immunization Single Admin 17:35:35 CDT 2014 CPT-51138 Fluzone Quadrivalent preservative free ( >=3yrs.) 17:35:35 CDT CPT-69082 Venipuncture Draw Fee 12:10:27 RESEARCH ENGINEER CPT-15663 Fluzone Quadrivalent Intramuscular Suspe nsion 0.5 ML 10:49:13 CDT CPT-78262 First Vx Component - Ix admi n via ID IM or jet inj without physician counseling 15:17:19 RESEARCH ENGINEER CPT-10033 Pneumovax 23 15:17:19 RESEARCH ENGINEER CPT-22827 Pneumovax 14:52:45 RESEARCH ENGINEER CPT-79742 Venipuncture Draw Fee 14:06:30 RESEARCH ENGINEER CPT-000 Give Appropriate Flu Vaccine 14:18:34 RESEARCH ENGINEER 2 CPT-76751 Administration single or combination vac cine inc oral 14:46:00 RESEARCH ENGINEER CPT-01465 Influenza split virus > age 3 14:46:00 RESEARCH ENGINEER CPT-OV Office Visit 19:13:16 CDT CPT-41926 Zostavax 18:41:56 CDT CPT-87172 Administration single or combination vac cine inc oral 12:56:39 CDT CPT-90667 Zoster Vaccine (Zostavax) 12:56:39 CDT 2012 CPT-80634 Venipuncture Draw Fee 10:58:57 CDT CPT-83126 Sono pelvis non OB uterus ovaries cervix 17:45:04 CDT CPT-86381 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
--- OUTSIDE RECORDS SUMMARY | 2019-10-27 12:55 | XMS REPORT | Clinical Summary ---
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 Benign neoplasm of colon PERIPHERAL NEUROPATHY [...] ronary atherosclerosis of unspecified type of vessel, eek or graft OTH NONSPC ABN FINDNG RAD&OTH [...] Test twice a day GLUCO SE BLOOD 92226543320 No Longer Active Baltazar Childers MD Active TRUEPLUS LANCETS 33G MISC Test twice a day LANCET S 14546547614 Active Baltazar Childers MD Active TRUEDRAW LANCING DEVICE MISC Test twice a day L ANCET DEVICES 36277762294 Active Baltazar Childers MD Active TRUETRACK TEST STRP Test twice a day GLUCOSE BLOO D 76809675083 Active Baltazar Childers MD Active TRUETRACK BLOOD GLUCOSE W/DEVICE KIT Test twice a day BLOOD GLUCOSE MONITORING SUPPL 09580648643 Active Baltazar Childers MD Activ e HYDROCODONE-ACETAMINOPHEN 7.5-325 MG TABS Take 1 tab every 6-8 hour s PRN HYDROCODONE-ACETAMINOPHEN 05331141539 Active Gato Rae MD Active NORTRIPTYLINE HCL 50 MG CAPS 1 every night for neuropathy 4 NORTRIPTYLINE HCL 58554848784 Active Baltazar Childers MD Acti ve GABAPENTIN 300 MG CAPS 1 three times a day GABAPE NTIN 40308264145 Active Baltazar Childers MD Active GABAPENTIN 300 MG CAPS 1 po qd x 2 days, then 1 po BID x 2 d ays, then 1 po TID GABAPENTIN 03900808878 No Longer Active Baltazar silverman MD Active TRAMADOL HCL 50 MG TABS 1 twice a day as needed for pain TRAMADOL HCL 22413970537 Active Baltazar Childers MD Active NAPROXEN 500 MG TABS 1 tablet by mouth twice daily NAPROXEN 84485514927 No Longer Active Baltazar Childers MD Active PROAIR HFA 108 (90 BASE) MCG/ACT AERS 2 puffs four times a d ay as needed ALBUTEROL SULFATE 91129089988 Active Baltazar Childers MD Active DEPO-TESTOSTERONE 200 MG/ML OIL as directed RUFINO TOSTERONE CYPIONATE 70303706149 No Longer Active Baltazar Childers MD Active LIPITOR 20 MG TABS Take one by mouth daily in evening ATORVASTATIN CALCIUM 88067022750 No Longer Active Baltazar Childers MD Activ e CRESTOR 10 MG TABS 1 by mouth every day R OSUVASTATIN CALCIUM 78495161444 No Longer Active Baltazar Childers MD Activ e PHENTERMINE HCL 37.5 MG TABS Take one by mouth daily 2 PHENTERMINE HCL 62769997649 No Longer Active Baltazar Childers MD Activ e ROBAXIN-750 750 MG TABS Take one by mouth daily ME THOCARBAMOL 67461880888 Active Baltazar Childers MD Active TIZANIDINE HCL 4 MG TABS 1 daily as needed for muscle spasm 2011 TIZANIDINE HCL 00583249352 No Longer Active Dawna Salazar RN Active [id number] 50-325-40 MG TABS 1 four time s a day as needed for heacache [id number] 00869761297 Active Baltazar Childers MD Active SUMATRIPTAN SUCCINATE 100 MG TABS 1 tablet by mouth at onset of migraine as needed SUMATRIPTAN SUCCINATE 44378018664 Active Baltazar bynum MD Active LORATADINE 10 MG TABS Take one by mouth daily LORATADINE 11807149223 Active Baltazar Childers MD Active FUROSEMIDE 40 MG TABS Take one by mouth daily FUROSEMIDE 16662808376 Active Baltazar Childers MD Active LISINOPRIL 20 MG TABS Take one by mouth daily at bedtime LISINOPRIL 54777881631 Active Baltazar Childers MD Active OMEPRAZOLE 20 MG CPDR Take one by mouth daily OMEPRAZOLE 01065637641 Active Baltazar Childers MD Active HYDROXYZINE HCL 25 MG TABS Take one by mouth daily HYDROXYZINE HCL 12988882922 Active Dawna Lew Active GLIPIZIDE 10 MG TABS 1 tablet by mouth twice daily GLIPIZIDE 37321605603 Active Baltazar Childers MD Active ALPRAZOLAM 1 MG TABS 1 tablet by mouth daily at bedtime for restles s leg ALPRAZOLAM 65708953631 Active Baltazar Childers MD Active METFORMIN HCL 1000 MG TABS Take one by mouth twice daily METFORMIN HCL 84470119784 Active Baltazar Childers MD Active TIZANIDINE HCL 4 MG TABS 1 daily as needed for muscle spasm 2011 TIZANIDINE HCL 4 MG TABS 136371 TIZANIDINE HCL Inactiv e PHENTERMINE HCL 37.5 MG TABS Take one by mouth daily 2 PHENTERMINE HCL 37.5 MG TABS 748405 PHENTERMINE HCL Inactive CRESTOR 10 MG TABS 1 by mouth every day C RESTOR 10 MG TABS ROSUVASTATIN CALCIUM Inactive LIPITOR 20 MG TABS Take one by mouth daily in evening LIPITOR 20 MG TABS 725027 ATORVASTATIN CALCIUM Inactive DEPO-TESTOSTERONE 200 MG/ML OIL as directed 8 DEPO-TESTOSTERONE 200 MG/ML OIL 560965 TESTOSTERONE CYPIONATE Inactive NAPROXEN 500 MG TABS 1 tablet by mouth twice daily 201 07/27/22 NAPROXEN 500 MG TABS 481455 NAPROXEN Inactive GABAPENTIN 300 MG CAPS 1 po qd x 2 days, then 1 po BID x 2 d ays, then 1 po TID GABAPENTIN 300 MG CAPS 717147 GABAPENTIN Inact amie ONETOUCH ULTRA BLUE STRP Test twice a day ONETOUCH ULTRA BLUE STRP GLUCOSE BLOOD Inactive Immunizations Vaccine Administration Date Value Standard Floyd cription pneumococcal immunization administered Pneumovax 23 [CVX33] pneumococcal polysaccharide vaccine, 23 valent Seasonal influenza vaccine, injectable, containing preservative, for > 3 years old (Afluria, FluLaval, Fluzone, Fluvirin, Fluarix, Agriflu(>= 18 yo)) Fluzone (>3 yrs.) [DTZ154] Influenza, seasonal, inject able Seasonal influenza vaccine, injectable, containing preservative, for > 3 years old (Afluria, FluLaval, Fluzone, Fluvirin, Fluarix, Agriflu(>= 18 yo)) Fluzone (>3 yrs.) [YVN016] Influenza, seasonal, inject able Vital Signs Date [...] - Chem istry sodium, serum 140 mmol/L 018-322 0490/05/05 potassium, serum 4.9 mmol/L 3.5-5.2 chloride, serum [...] Panel - Chemistry sodium, serum 139 mmol/L 760-273 3152/01/20 potassium, serum 5.3 mmol/L 3.5-5.2 chloride, serum [...] mg/g mg/g{creat} 0-29 cholesterol, serum 319 mg/dL 322-938 1730/08/21 triglyceride, serum, fasting 546 mg/dL 30-200 HDL cholesterol, serum 39 mg/dL 32-96 LDL cholesterol, serum 167.00 mg/dL 5.00-130.00 hemoglobin A1C, blood, as % of total hemoglobin 7.7 % 4.3-6.0 sodium, serum 138 mmol/L 138-335 9379/08/21 potassium, serum 4.3 mmol/L 3.5-5.2 chloride, serum [...] 0-19 Encounters Code Encounter Date Provider Facility CPT-94610 Level 4 Est. Patient 11:29:55 CDT Baltazar Childers MD [facility] CPT-61264 Level 4 Est. Patient 14:15:19 CDT Baltazar Childers MD [facility] CPT-87369 Level 4 Est. Patient 12:20:13 CDT Baltazar Childers MD [facility] CPT-87161 Level 4 Est. Patient 14:52:45 ORTHODONTIC LABORATORY TECHNICIAN Baltazar Childers MD [facility] CPT-05598 Level 4 Est. Patient 14:18:34 ORTHODONTIC LABORATORY TECHNICIAN Baltazar Childers MD [facility] CPT-16606 Level 4 Est. Patient 15:18:29 CDT Baltazar Childers MD [facility] CPT-61957 Level 3 Est. Patient 12:45:34 CDT Baltazar Childers MD [facility] CPT-28652 Level 3 Est. Patient 10:10:11 CDT Baltazar Childers MD [facility] CPT-49613 Level 3 Est. Patient 14:07:50 CDT Baltazar Childers MD [facility] CPT-90338 Level 4 Est. Patient 12:26:10 ORTHODONTIC LABORATORY TECHNICIAN Baltazar Childers MD [facility] CPT-66937 Level 4 Est. Patient 14:45:38 CDT Baltazar Childers MD [facility] CPT-81930 Level 4 New Patient 12:30:48 CDT Baltazar hinton MD [facility] Procedures Code Procedure Name Date Entry Date Standard Desc ription CPT-03757 Venipuncture Draw Fee 12:10:27 ORTHODONTIC LABORATORY TECHNICIAN CPT-07370 Fluzone Quadrivalent Intramuscular Suspe nsion 0.5 ML 10:49:13 CDT CPT-75280 First Vx Component - Ix admi n via ID IM or jet inj without physician counseling 15:17:19 ORTHODONTIC LABORATORY TECHNICIAN CPT-09898 Pneumovax 15:17:19 ORTHODONTIC LABORATORY TECHNICIAN CPT-31507 Pneumovax 14:52:45 ORTHODONTIC LABORATORY TECHNICIAN CPT-48524 Venipuncture Draw Fee 14:06:30 ORTHODONTIC LABORATORY TECHNICIAN CPT-000 Give Appropriate Flu Vaccine 14:18:34 ORTHODONTIC LABORATORY TECHNICIAN 2 CPT-93038 Administration single or combination vac cine inc oral 14:46:00 ORTHODONTIC LABORATORY TECHNICIAN CPT-55630 Influenza split virus > age 3 14:46:00 ORTHODONTIC LABORATORY TECHNICIAN CPT-OV Office Visit 19:13:16 CDT CPT-97088 Zostavax 18:41:56 CDT CPT-90112 Administration single or combination vac cine inc oral 12:56:39 CDT CPT-98414 Zoster Vaccine (Zostavax) 12:56:39 CDT 2012 CPT-57243 Venipuncture Draw Fee 10:58:57 CDT CPT-14488 Sono pelvis non OB uterus ovaries cervix 17:45:04 CDT CPT-23335 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
--- OUTSIDE RECORDS SUMMARY | 2019-10-27 12:55 | XMS REPORT | Clinical Summary ---
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 Benign neoplasm of colon PERIPHERAL NEUROPATHY [...] 1 tab daily for HTN AMLODIPINE BESYLATE 11657685590 Active Ct Ledesma RECORDAK OPERATOR Active SYNTHROID 0.1 MG TAB 1 tablet by mouth daily LE VOTHYROXINE SODIUM 93491369956 Active Shonna Parker APRN Active GLIPIZIDE 10 MG TAB take 2 tablets twice daily GLIPIZIDE 63715018346 Active Baltazar Childers MD Active SUCRALFATE 1 GM TABS 1 four times a day to coat the stomach 2015 SUCRALFATE 80511305529 No Longer Active Baltazar Childers MD Active PEN NEEDLES 31G X 6 MM MISC use 1 daily INSULIN PEN NEEDLE 61084797410 Active Gato Rae MD Active TOUJEO SOLOSTAR 300 UNIT/ML SC SOPN 10 units SC daily INSULIN GLARGINE 41552011734 No Longer Active Martita Herbert ARGUETA Active LANTUS SOLOSTAR 100 UNIT/ML SC SOPN 10 units SC daily INSULIN GLARGINE 66210410663 Active KENDALL Juarez Active NAPROXEN SODIUM 220 MG ORAL TABS 1 three times a day as needed 2 NAPROXEN SODIUM 51441747923 No Longer Active Baltazar Childers MD Active ATORVASTATIN CALCIUM 20 MG ORAL TABS Take 1 tab daily ATORVASTATIN CALCIUM 12631187046 Active Baltazar Childers MD Active FUROSEMIDE 40 MG TABS Take one by mouth daily FUROSEMIDE 50691341059 Active Baltazar Childers MD Active LISINOPRIL 20 MG TABS Take one by mouth daily at bedtime LISINOPRIL 71255097268 No Longer Active Baltazar Childers MD Active ONETOUCH ULTRA BLUE STRP Test twice a day GLUCO SE BLOOD 78487150952 No Longer Active Baltazar Childers MD Active TRUEPLUS LANCETS 33G MISC Test twice a day LANCET S 29472052889 Active KENDALL Juarez Active TRUEDRAW LANCING DEVICE MISC Test twice a day L ANCET DEVICES 68059253533 Active Baltazar Childers MD Active TRUETRACK TEST STRP Test twice a day GLUCOSE BLOO D 89833830962 Active KENDALL Juarez Active TRUETRACK BLOOD GLUCOSE W/DEVICE KIT Test twice a day BLOOD GLUCOSE MONITORING SUPPL 69797490235 Active Baltazar Childers MD Activ e HYDROCODONE-ACETAMINOPHEN 7.5-325 MG TABS Take 1 tab every 6-8 hour s PRN HYDROCODONE-ACETAMINOPHEN 76188472462 Active Baltazar Childers MD Active NORTRIPTYLINE HCL 50 MG CAPS 1 every night for neuropathy 4 NORTRIPTYLINE HCL 69498748473 Active Baltazar Childers MD Acti ve GABAPENTIN 300 MG CAPS 1 three times a day GABAPE NTIN 63825540274 Active Baltazar Childers MD Active GABAPENTIN 300 MG CAPS 1 po qd x 2 days, then 1 po BID x 2 d ays, then 1 po TID GABAPENTIN 38470753727 No Longer Active Baltazar silverman MD Active TRAMADOL HCL 50 MG TABS 1 twice a day as needed for pain TRAMADOL HCL 34061557720 Active Baltazar Childers MD Active NAPROXEN 500 MG TABS 1 tablet by mouth twice daily NAPROXEN 43956064230 No Longer Active Baltazar Childers MD Active PROAIR HFA 108 (90 BASE) MCG/ACT AERS 2 puffs four times a d ay as needed ALBUTEROL SULFATE 51747845330 Active Baltazar Childers MD Active DEPO-TESTOSTERONE 200 MG/ML OIL as directed RUFINO TOSTERONE CYPIONATE 02952516202 No Longer Active Baltazar Childers MD Active LIPITOR 20 MG TABS Take one by mouth daily in evening ATORVASTATIN CALCIUM 50785291593 No Longer Active Baltazar Childers MD Activ e CRESTOR 10 MG TABS 1 by mouth every day R OSUVASTATIN CALCIUM 83156667519 No Longer Active Baltazar Childers MD Activ e PHENTERMINE HCL 37.5 MG TABS Take one by mouth daily 2 PHENTERMINE HCL 02193908892 No Longer Active Baltazar Childers MD Activ e ROBAXIN-750 750 MG TABS Take one by mouth daily ME THOCARBAMOL 99239280345 Active Baltazar Childers MD Active TIZANIDINE HCL 4 MG TABS 1 daily as needed for muscle spasm 2011 TIZANIDINE HCL 57538312178 No Longer Active Dawna Salazar RN Active [id number] 50-325-40 MG TABS 1 four time s a day as needed for heacache [id number] 17071980235 Active Baltazar Childers MD Active SUMATRIPTAN SUCCINATE 100 MG TABS 1 tablet by mouth at onset of migraine as needed SUMATRIPTAN SUCCINATE 45057800539 Active Shonna richey APRN Active LORATADINE 10 MG TABS Take one by mouth daily LORATADINE 71063069018 Active Bethrenetta Carr KENDALL Active OMEPRAZOLE 20 MG CPDR Take one by mouth daily OMEPRAZOLE 16872982800 Active Baltazar Childers MD Active HYDROXYZINE HCL 25 MG TABS Take one by mouth daily HYDROXYZINE HCL 46265743435 Active Baltazar Childers MD Active ALPRAZOLAM 1 MG TABS 1 tablet by mouth daily at bedtime for restles s leg ALPRAZOLAM 94670877905 Active Baltazar Childers MD Active METFORMIN HCL 1000 MG TABS Take one by mouth twice daily METFORMIN HCL 69012198310 Active Baltazar Childers MD Active TIZANIDINE HCL 4 MG TABS 1 daily as needed for muscle spasm 2011 TIZANIDINE HCL 4 MG TABS 790828 TIZANIDINE HCL Inactiv e PHENTERMINE HCL 37.5 MG TABS Take one by mouth daily 2 PHENTERMINE HCL 37.5 MG TABS 984151 PHENTERMINE HCL Inactive CRESTOR 10 MG TABS 1 by mouth every day C RESTOR 10 MG TABS 594432 ROSUVASTATIN CALCIUM Inactive LIPITOR 20 MG TABS Take one by mouth daily in evening LIPITOR 20 MG TABS 665439 ATORVASTATIN CALCIUM Inactive DEPO-TESTOSTERONE 200 MG/ML OIL as directed 8 DEPO-TESTOSTERONE 200 MG/ML OIL 464770 TESTOSTERONE CYPIONATE Inactive NAPROXEN 500 MG TABS 1 tablet by mouth twice daily 201 07/27/22 NAPROXEN 500 MG TABS 706702 NAPROXEN Inactive GABAPENTIN 300 MG CAPS 1 po qd x 2 days, then 1 po BID x 2 d ays, then 1 po TID GABAPENTIN 300 MG CAPS 065122 GABAPENTIN Inact amie ONETOUCH ULTRA BLUE STRP Test twice a day ONETOUCH ULTRA BLUE STRP GLUCOSE BLOOD Inactive NAPROXEN SODIUM 220 MG ORAL TABS 1 three times a day as needed 2 NAPROXEN SODIUM 220 MG ORAL TABS 178976 NAPROXEN SODIUM Inactive TOUJEO SOLOSTAR 300 UNIT/ML SC SOPN 10 units SC daily TOUJEO SOLOSTAR 300 UNIT/ML SC SOPN INSULIN GLARGINE Inac tive SUCRALFATE 1 GM TABS 1 four times a day to coat the stomach 2015 SUCRALFATE 1 GM TABS 104805 SUCRALFATE Inactive Immunizations Vaccine Administration Date Value Standard Floyd cription pneumococcal immunization administered Pneumovax 23 [CVX33] pneumococcal polysaccharide vaccine, 23 valent Seasonal influenza vaccine, injectable, containing preservative, for > 3 years old (Afluria, FluLaval, Fluzone, Fluvirin, Fluarix, Agriflu(>= 18 yo)) Fluzone (>3 yrs.) [[id number]] Influenza, seasonal, inject able Seasonal influenza vaccine, injectable, containing preservative, for > 3 years old (Afluria, FluLaval, Fluzone, Fluvirin, Fluarix, Agriflu(>= 18 yo)) Fluzone (>3 yrs.) [[id number]] Influenza, seasonal, inject able Vital Signs Date [...] C - Chemistry sodium, serum 143 mmol/L 358-116 3230/06/19 potassium, serum 5.9 mmol/L 3.5-5.2 chloride, serum 105 mmol/L 98-107 carbon dioxide, venous blood 30.2 mmol/L 21.0-32 .0 blood glucose 189 mg/dL 65-110 calcium, serum 9.7 mg/dL 8.5-10.1 urea nitrogen, blood 37 mg/dL 7-18 creatinine, serum 2.11 mg/dL 0.55-1.30 hemoglobin A1C, blood, as % of total hemoglobin 8.2 % 4.3-6.0 Lab Report: Comp. Metabolic Panel, Lipid Panel - Chemistry sodium, serum 143 mmol/L 594-435 6269/12/19 carbon dioxide, venous blood 32.5 mmol/L 21.0-32 .0 potassium, serum 4.9 mmol/L 3.5-5.2 chloride, serum 101 mmol/L 98-107 blood glucose 129 mg/dL 65-110 urea nitrogen, blood 18 mg/dL 7-18 creatinine, serum 1.79 mg/dL 0.55-1.30 alanine aminotransferase (SGPT), serum 34 U/L 12-78 aspartate aminotransferase (SGOT), serum 26 U/L 15-37 calcium, serum 8.9 mg/dL 8.5-10.1 bilirubin, serum, total 0.30 mg/dL 0.00-1.00 cholesterol, serum 214 mg/dL 205-595 2862/12/19 triglyceride, serum, fasting 351 mg/dL 30-200 HDL [...] 4.3-6.0 Encounters Code Encounter Date Provider Facility CPT-64938 Level 4 Est. Patient 14:22:31 CDT Baltazar Childers MD [facility] CPT-89112 Level 4 Est. Patient 15:44:38 CDT Shonna Parker APRN [facility] CPT-78243 Level 4 Est. Patient 11:34:17 CDT Baltazar Childers MD [facility] CPT-31786 Level 3 Est. Patient 16:40:40 CDT Baltazar Childers MD [facility] CPT-10284 Level 4 Est. Patient 10:41:24 CDT Baltazar Childers MD [facility] CPT-67589 Level 4 Est. Patient 16:01:48 CDT Baltazar Childers MD [facility] CPT-55283 Level 4 Est. 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 Patient 15:42:12 CDT Baltazar Childers MD [facility] CPT-65606 Level 4 Est. Patient 11:29:55 CDT Baltazar Childers MD [facility] CPT-38214 Level 4 Est. Patient 14:15:19 CDT Baltazar Childers MD [facility] CPT-90461 Level 4 Est. Patient 12:20:13 CDT Baltazar Childers MD [facility] CPT-22716 Level 4 Est. Patient 14:52:45 FINANCIAL ACCOUNTING MANAGER Baltazar Childers MD [facility] CPT-38501 Level 4 Est. Patient 14:18:34 FINANCIAL ACCOUNTING MANAGER Baltazar Childers MD [facility] CPT-21331 Level 4 Est. Patient 15:18:29 CDT Baltazar Childers MD [facility] CPT-55250 Level 3 Est. Patient 12:45:34 CDT Baltazar Childers MD [facility] CPT-32331 Level 3 Est. Patient 10:10:11 CDT Baltazar Childers MD [facility] CPT-14413 Level 3 Est. Patient 14:07:50 CDT Baltazar Childers MD [facility] CPT-55400 Level 4 Est. Patient 12:26:10 FINANCIAL ACCOUNTING MANAGER Baltazar Childers MD [facility] CPT-91695 Level 4 Est. Patient 14:45:38 CDT Baltazar Childers MD [facility] CPT-36845 Level 4 New Patient 12:30:48 CDT Baltazar hinton MD [facility] Procedures Code Procedure Name Date Entry Date Standard Desc ription CPT-34795 Venipuncture Draw Fee 12:04:12 CDT CPT-77536 Lipid - LAB USE ONLY 17:39:15 FINANCIAL ACCOUNTING MANAGER 9 CPT-70412 HGBA1C - LAB USE ONLY 17:39:15 FINANCIAL ACCOUNTING MANAGER CPT-02079 CMP - LAB USE ONLY 17:39:14 FINANCIAL ACCOUNTING MANAGER CPT-58600 Venipuncture Draw Fee 17:39:14 FINANCIAL ACCOUNTING MANAGER CPT-98517 First Vx - Ix admin via ID I M or jet injects without counseling by physician 16:55:17 FINANCIAL ACCOUNTING MANAGER CPT-92631 Fluzone Quadrivalent Intramuscular Suspe nsion 0.5 ML 16:55:17 FINANCIAL ACCOUNTING MANAGER CPT-11682 Renal Panel - LAB USE ONLY 17:39:20 CDT 201 10/31/07 CPT-05287 CBC - LAB USE ONLY 17:39:20 CDT CPT-29953 Venipuncture Draw Fee 17:39:20 CDT CPT-58677 Venipuncture Draw Fee 14:33:30 CDT CPT-81630 Renal Panel - LAB USE ONLY 14:33:30 CDT 201 10/31/07 CPT-67757 CBC - LAB USE ONLY 14:33:29 CDT CPT-43252 Venipuncture Draw Fee 14:50:21 FINANCIAL ACCOUNTING MANAGER CPT-52791 Immunization Single Admin 17:35:35 CDT 2014 CPT-65927 Fluzone Quadrivalent preservative free ( >=3yrs.) 17:35:35 CDT CPT-36006 Venipuncture Draw Fee 12:10:27 FINANCIAL ACCOUNTING MANAGER CPT-46499 Fluzone Quadrivalent Intramuscular Suspe nsion 0.5 ML 10:49:13 CDT CPT-43777 First Vx Component - Ix admi n via ID IM or jet inj without physician counseling 15:17:19 FINANCIAL ACCOUNTING MANAGER CPT-32948 Pneumovax 15:17:19 FINANCIAL ACCOUNTING MANAGER CPT-65202 Pneumovax 14:52:45 FINANCIAL ACCOUNTING MANAGER CPT-36172 Venipuncture Draw Fee 14:06:30 FINANCIAL ACCOUNTING MANAGER CPT-000 Give Appropriate Flu Vaccine 14:18:34 FINANCIAL ACCOUNTING MANAGER 2 CPT-41475 Administration single or combination vac cine inc oral 14:46:00 FINANCIAL ACCOUNTING MANAGER CPT-68196 Influenza split virus > age 3 14:46:00 FINANCIAL ACCOUNTING MANAGER CPT-OV Office Visit 19:13:16 CDT CPT-33468 Zostavax 18:41:56 CDT CPT-90983 Administration single or combination vac cine inc oral 12:56:39 CDT CPT-95855 Zoster Vaccine (Zostavax) 12:56:39 CDT 2012 CPT-94274 Venipuncture Draw Fee 10:58:57 CDT CPT-67848 Sono pelvis non OB uterus ovaries cervix 17:45:04 CDT CPT-47240 Sono retroperitoneal complete kidneys an d bladder 17:14:36 CDT CPT-OV Office Visit 14:59:38 FINANCIAL ACCOUNTING MANAGER CPT-J1070 Depo Testosterone 100 mg 14:50:13 CDT 03/05 CPT-06653 Abx/Therapy Injection 14:50:13 CDT CPT-53994 Administration single or combination vac cine inc oral 14:34:43 CDT CPT-21846 Influenza split virus > age 3 14:34:43 CDT CPT-J1070 Depo Testosterone 100 mg 17:37:13 CDT 01/11 CPT-68183 Abx/Therapy Injection 17:37:13 CDT CPT-91095 Venipuncture Draw Fee 16:30:13 CDT CPT-59577 Venipuncture Draw Fee 16:29:43 CDT CPT-J1070 Depo Testosterone 100 mg 14:45:38 CDT 01/11
--- OUTSIDE RECORDS SUMMARY | 2019-10-27 12:55 | XMS REPORT | Clinical Summary ---
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 Benign neoplasm of colon PERIPHERAL NEUROPATHY [...] ronary atherosclerosis of unspecified type of vessel, [place] or graft OTH NONSPC ABN FINDNG RAD&OTH [...] unspecified WELL WOMAN EXAMINATION V72.31 Active Gayathri vailes MD Routine gynecological examination Health screening V70.0 Active Baltazar Wayne Routine general medical examination at a health care facility Chronic pain syndrome 338.4 Active Baltazar Nickerson MD Chronic pain syndrome Chronic kidney disease stage III 585.3 Active 201 10/25/03 Elba Ryan CÉSARA Chronic kidney disease, Stage III (moder ate) COLON POLYPS ICD-211.3 Inactive Lolis Willima APR N Medication List Medication Instructions Start Date Stop Date Generic Name NDC Status Provider Patient Instruction NAPROXEN SODIUM 220 MG ORAL TABS 1 three times a day as needed 2 NAPROXEN SODIUM 29149250138 No Longer Active Baltazar Childers MD Active ATORVASTATIN CALCIUM 20 MG ORAL TABS Take 1 tab daily ATORVASTATIN CALCIUM 53529718228 Active Kelly Iraheta LPN Active FUROSEMIDE 40 MG TABS Take one by mouth daily FUROSEMIDE 10789007476 Active Baltazar Childers MD Active LISINOPRIL 20 MG TABS Take one by mouth daily at bedtime LISINOPRIL 49676127207 Active KENDALL Juarez Active ONETOUCH ULTRA BLUE STRP Test twice a day GLUCO SE BLOOD 51377555993 No Longer Active Baltazar Childers MD Active TRUEPLUS LANCETS 33G MISC Test twice a day LANCET S 27553192173 Active KENDALL Juarez Active TRUEDRAW LANCING DEVICE MISC Test twice a day L ANCET DEVICES 27684320134 Active Baltazar Childers MD Active TRUETRACK TEST STRP Test twice a day GLUCOSE BLOO D 79488216185 Active Baltazar Childers MD Active TRUETRACK BLOOD GLUCOSE W/DEVICE KIT Test twice a day BLOOD GLUCOSE MONITORING SUPPL 44475193632 Active Baltazar Childers MD Activ e HYDROCODONE-ACETAMINOPHEN 7.5-325 MG TABS Take 1 tab every 6-8 hour s PRN HYDROCODONE-ACETAMINOPHEN 71542844820 Active Baltazar Childers MD Active NORTRIPTYLINE HCL 50 MG CAPS 1 every night for neuropathy 4 NORTRIPTYLINE HCL 62570614911 Active Baltazar Childers MD Acti ve GABAPENTIN 300 MG CAPS 1 three times a day GABAPE NTIN 18513670504 Active KENDALL Juarez Active GABAPENTIN 300 MG CAPS 1 po qd x 2 days, then 1 po BID x 2 d ays, then 1 po TID GABAPENTIN 21803897070 No Longer Active Baltazar silverman MD Active TRAMADOL HCL 50 MG TABS 1 twice a day as needed for pain TRAMADOL HCL 33384667843 Active Baltazar Childers MD Active NAPROXEN 500 MG TABS 1 tablet by mouth twice daily NAPROXEN 76720195815 No Longer Active Baltazar Childers MD Active PROAIR HFA 108 (90 BASE) MCG/ACT AERS 2 puffs four times a d ay as needed ALBUTEROL SULFATE 25812295918 Active KENDALL Juarez Active DEPO-TESTOSTERONE 200 MG/ML OIL as directed RUFINO TOSTERONE CYPIONATE 91553084319 No Longer Active Baltazar Childers MD Active LIPITOR 20 MG TABS Take one by mouth daily in evening ATORVASTATIN CALCIUM 62738933574 No Longer Active Baltazar Childers MD Activ e CRESTOR 10 MG TABS 1 by mouth every day R OSUVASTATIN CALCIUM 57202563666 No Longer Active Baltazar Childers MD Activ e PHENTERMINE HCL 37.5 MG TABS Take one by mouth daily 2 PHENTERMINE HCL 55559436917 No Longer Active Baltazar Childers MD Activ e ROBAXIN-750 750 MG TABS Take one by mouth daily ME THOCARBAMOL 95045919211 Active Baltazar Childers MD Active TIZANIDINE HCL 4 MG TABS 1 daily as needed for muscle spasm 2011 TIZANIDINE HCL 66605566150 No Longer Active Dawna Salazar RN Active [id number] 50-325-40 MG TABS 1 four time s a day as needed for heacache [id number] 76688323180 Active Baltazar Childers MD Active SUMATRIPTAN SUCCINATE 100 MG TABS 1 tablet by mouth at onset of migraine as needed SUMATRIPTAN SUCCINATE 46519628311 Active KENDALL Juarez Active LORATADINE 10 MG TABS Take one by mouth daily LORATADINE 14220607362 Active Baltazar Childers MD Active OMEPRAZOLE 20 MG CPDR Take one by mouth daily OMEPRAZOLE 66034511537 Active Baltazar Childers MD Active HYDROXYZINE HCL 25 MG TABS Take one by mouth daily HYDROXYZINE HCL 05005999240 Active Baltazar Childers MD Active GLIPIZIDE 10 MG TABS 1 tablet by mouth twice daily GLIPIZIDE 23385536335 Active Bella Suarez APRN Active ALPRAZOLAM 1 MG TABS 1 tablet by mouth daily at bedtime for restles s leg ALPRAZOLAM 66871615133 Active Baltazar Childers MD Active METFORMIN HCL 1000 MG TABS Take one by mouth twice daily METFORMIN HCL 49273978313 Active Baltazar Childers MD Active TIZANIDINE HCL 4 MG TABS 1 daily as needed for muscle spasm 2011 TIZANIDINE HCL 4 MG TABS 499460 TIZANIDINE HCL Inactiv e PHENTERMINE HCL 37.5 MG TABS Take one by mouth daily 2 PHENTERMINE HCL 37.5 MG TABS 151920 PHENTERMINE HCL Inactive CRESTOR 10 MG TABS 1 by mouth every day C RESTOR 10 MG TABS ROSUVASTATIN CALCIUM Inactive LIPITOR 20 MG TABS Take one by mouth daily in evening LIPITOR 20 MG TABS 149663 ATORVASTATIN CALCIUM Inactive DEPO-TESTOSTERONE 200 MG/ML OIL as directed 8 DEPO-TESTOSTERONE 200 MG/ML OIL 838974 TESTOSTERONE CYPIONATE Inactive NAPROXEN 500 MG TABS 1 tablet by mouth twice daily 201 07/27/22 NAPROXEN 500 MG TABS 987256 NAPROXEN Inactive GABAPENTIN 300 MG CAPS 1 po qd x 2 days, then 1 po BID x 2 d ays, then 1 po TID GABAPENTIN 300 MG CAPS 331134 GABAPENTIN Inact amie ONETOUCH ULTRA BLUE STRP Test twice a day ONETOUCH ULTRA BLUE STRP GLUCOSE BLOOD Inactive NAPROXEN SODIUM 220 MG ORAL TABS 1 three times a day as needed 2 NAPROXEN SODIUM 220 MG ORAL TABS 366517 NAPROXEN SODIUM Inactive Immunizations Vaccine Administration Date Value Standard Floyd cription pneumococcal immunization administered Pneumovax 23 [CVX33] pneumococcal polysaccharide vaccine, 23 valent Seasonal influenza vaccine, injectable, containing preservative, for > 3 years old (Afluria, FluLaval, Fluzone, Fluvirin, Fluarix, Agriflu(>= 18 yo)) Fluzone (>3 yrs.) [[id number]] Influenza, seasonal, inject able Seasonal influenza vaccine, injectable, containing preservative, for > 3 years old (Afluria, FluLaval, Fluzone, Fluvirin, Fluarix, Agriflu(>= 18 yo)) Fluzone (>3 yrs.) [DXT916] Influenza, seasonal, inject able Vital Signs Date [...] - Chem istry sodium, serum 140 mmol/L 807-326 6507/05/05 potassium, serum 4.9 mmol/L 3.5-5.2 chloride, serum 99 mmol/L 98-107 carbon dioxide, venous blood 34.3 mmol/L 21.0-32 .0 blood glucose 132 mg/dL 65-110 calcium, serum 10.1 mg/dL 8.5-10.1 urea nitrogen, blood 23 mg/dL 7-18 creatinine, serum 2.00 mg/dL 0.60-1.30 Lab Report: CBC, HGBA1C, Renal Panel - C hemistry hemoglobin A1C, blood, as % of total hemoglobin 7.9 % 4.3-6.0 sodium, serum 139 mmol/L 309-627 7254/02/04 potassium, serum 5.4 mmol/L 3.5-5.2 chloride, serum [...] Panel - Chemistry sodium, serum 138 mmol/L 140-153 2000/11/23 carbon dioxide, venous blood 32.4 mmol/L 21.0-32 .0 potassium, serum 5.7 mmol/L 3.5-5.2 chloride, serum 98 mmol/L 98-107 blood glucose 136 mg/dL 65-110 urea nitrogen, blood 18 mg/dL 7-18 creatinine, serum 1.71 mg/dL 0.55-1.30 alanine aminotransferase (SGPT), serum 71 U/L 12-78 aspartate aminotransferase (SGOT), serum 34 U/L 15-37 calcium, serum 9.4 mg/dL 8.5-10.1 bilirubin, serum, total 0.40 mg/dL 0.00-1.00 cholesterol, serum 405 mg/dL 961-908 3047/11/23 triglyceride, serum, fasting 709 mg/dL 30-200 HDL [...] mg/dL Encounters Code Encounter Date Provider Facility CPT-95116 Level 4 Est. Patient 16:54:07 PETROLEUM REFINERY WORKER Baltazar Childers MD [facility] CPT-31283 Level 4 Est. Patient 15:42:12 CDT Baltazar Childers MD [facility] CPT-82247 Level 4 Est. Patient 11:29:55 CDT Baltazar Childers MD [facility] CPT-31921 Level 4 Est. Patient 14:15:19 CDT Baltazar Childers MD [facility] CPT-57721 Level 4 Est. Patient 12:20:13 CDT Baltazar Childers MD [facility] CPT-63051 Level 4 Est. Patient 14:52:45 PETROLEUM REFINERY WORKER Baltazar Childers MD [facility] CPT-54747 Level 4 Est. Patient 14:18:34 PETROLEUM REFINERY WORKER Baltazar Childers MD [facility] CPT-93372 Level 4 Est. Patient 15:18:29 CDT Baltazar Childers MD [facility] CPT-91543 Level 3 Est. Patient 12:45:34 CDT Baltazar Childers MD [facility] CPT-61127 Level 3 Est. Patient 10:10:11 CDT Baltazar Childers MD [facility] CPT-10750 Level 3 Est. Patient 14:07:50 CDT Baltazar Childers MD [facility] CPT-61202 Level 4 Est. Patient 12:26:10 PETROLEUM REFINERY WORKER Baltazar Childers MD [facility] CPT-40843 Level 4 Est. Patient 14:45:38 CDT Baltazar Childers MD [facility] CPT-12297 Level 4 New Patient 12:30:48 CDT Baltazar hinton MD [facility] Procedures Code Procedure Name Date Entry Date Standard Desc ription CPT-34370 Venipuncture Draw Fee 14:50:21 PETROLEUM REFINERY WORKER CPT-95052 Immunization Single Admin 17:35:35 CDT 2014 CPT-70305 Fluzone Quadrivalent preservative free ( >=3yrs.) 17:35:35 CDT CPT-46181 Venipuncture Draw Fee 12:10:27 PETROLEUM REFINERY WORKER CPT-98398 Fluzone Quadrivalent Intramuscular Suspe nsion 0.5 ML 10:49:13 CDT CPT-95443 First Vx Component - Ix admi n via ID IM or jet inj without physician counseling 15:17:19 PETROLEUM REFINERY WORKER CPT-03297 Pneumovax 23 15:17:19 PETROLEUM REFINERY WORKER CPT-19954 Pneumovax 14:52:45 PETROLEUM REFINERY WORKER CPT-34577 Venipuncture Draw Fee 14:06:30 PETROLEUM REFINERY WORKER CPT-000 Give Appropriate Flu Vaccine 14:18:34 PETROLEUM REFINERY WORKER 2 CPT-21643 Administration single or combination vac cine inc oral 14:46:00 PETROLEUM REFINERY WORKER CPT-79475 Influenza split virus > age 3 14:46:00 PETROLEUM REFINERY WORKER CPT-OV Office Visit 19:13:16 CDT CPT-84802 Zostavax 18:41:56 CDT CPT-44415 Administration single or combination vac cine inc oral 12:56:39 CDT CPT-97023 Zoster Vaccine (Zostavax) 12:56:39 CDT 2012 CPT-94552 Venipuncture Draw Fee 10:58:57 CDT CPT-06683 Sono pelvis non OB uterus ovaries cervix 17:45:04 CDT CPT-06483 Sono retroperitoneal complete kidneys an d bladder 17:14:36 CDT CPT-OV Office Visit 14:59:38 PETROLEUM REFINERY WORKER CPT-J1070 Depo Testosterone 100 mg 14:50:13 CDT 03/05 CPT-82225 Abx/Therapy Injection 14:50:13 CDT CPT-79022 Administration single or combination vac cine inc oral 14:34:43 CDT CPT-22954 Influenza split virus > age 3 14:34:43 CDT CPT-J1070 Depo Testosterone 100 mg 17:37:13 CDT 01/11 CPT-18085 Abx/Therapy Injection 17:37:13 CDT CPT-06913 Venipuncture Draw Fee 16:30:13 CDT CPT-39389 Venipuncture Draw Fee 16:29:43 CDT CPT-J1070 Depo Testosterone 100 mg 14:45:38 CDT 01/11
[2019-10-27] MEDS ORDERED: LEVOFLOXACIN 750 MG/150 ML IV 150 ML IV STA (12:56)
--- OUTSIDE RECORDS SUMMARY | 2019-10-27 12:56 | XMS REPORT | Clinical Summary ---
Author Author Admin, Elba Lance [employer] Address Unknown Phone Unavailable Allergies, Adverse Reactions, 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 Thomas [employer]AM[employer]ER Benign neoplasm of colon PERIPHERAL NEUROPATHY 356.9 [...] ronary atherosclerosis of unspecified type of vessel, [place] or graft OTH NONSPC ABN FINDNG RAD&OTH [...] 1 tablet daily for 4 days AZITHROMYCIN 23610231027 No Longer Active Yousif Childers MD Active LANTUS SOLOSTAR 100 UNIT/ML SC SOPN 30 units SC daily INSULIN GLARGINE 66500667790 Active Baltazar Childers MD Active AMLODIPINE BESYLATE 5 MG ORAL TABS 1 tab daily for HTN AMLODIPINE BESYLATE 56976889825 Active Baltazar Childers MD Active SYNTHROID 0.1 MG TAB 1 tablet by mouth daily LE VOTHYROXINE SODIUM 39460937143 Active Baltazar Childers MD Active GLIPIZIDE 10 MG TAB take 2 tablets twice daily GLIPIZIDE 96169473221 Active Baltazar Childers MD Active SUCRALFATE 1 GM TABS 1 four times a day to coat the stomach 2015 SUCRALFATE 15941584443 No Longer Active Baltazar Childers MD Active PEN NEEDLES 31G X 6 MM MISC use 1 daily INSULIN PEN NEEDLE 63990511357 Active KENDALL Juarez Active TOUJEO SOLOSTAR 300 UNIT/ML SC SOPN 10 units SC daily INSULIN GLARGINE 40862658098 No Longer Active Martita ARGUETA Active NAPROXEN SODIUM 220 MG ORAL TABS 1 three times a day as needed 2 NAPROXEN SODIUM 54335877044 No Longer Active Baltazar Childers MD Active ATORVASTATIN CALCIUM 20 MG ORAL TABS Take 1 tab daily ATORVASTATIN CALCIUM 32030190388 Active Baltazar Childers MD Active FUROSEMIDE 40 MG TABS Take one by mouth daily FUROSEMIDE 56654990424 Active Baltazar Childers MD Active LISINOPRIL 20 MG TABS Take one by mouth daily at bedtime LISINOPRIL 39652599802 No Longer Active Baltazar Childers MD Active ONETOUCH ULTRA BLUE STRP Test twice a day GLUCO SE BLOOD 67014548431 No Longer Active Baltazar Childers MD Active TRUEPLUS LANCETS 33G MISC Test twice a day LANCET S 10335749605 Active KENDALL Juarez Active TRUEDRAW LANCING DEVICE MISC Test twice a day L ANCET DEVICES 08150784424 Active Baltazar Childers MD Active TRUETRACK TEST STRP Test twice a day GLUCOSE BLOO D 46185431481 Active KENDALL Juarez Active TRUETRACK BLOOD GLUCOSE W/DEVICE KIT Test twice a day BLOOD GLUCOSE MONITORING SUPPL 10083247261 Active Baltazar Childers MD Activ e HYDROCODONE-ACETAMINOPHEN 7.5-325 MG TABS Take 1 tab every 6-8 hour s PRN HYDROCODONE-ACETAMINOPHEN 83773906097 Active Baltazar Childers MD Active NORTRIPTYLINE HCL 50 MG CAPS 1 every night for neuropathy 4 NORTRIPTYLINE HCL 32492999317 Active Baltazar Childers MD Acti ve GABAPENTIN 300 MG CAPS 1 three times a day GABAPE NTIN 29816393345 Active Baltazar Childers MD Active GABAPENTIN 300 MG CAPS 1 po qd x 2 days, then 1 po BID x 2 d ays, then 1 po TID GABAPENTIN 50165967942 No Longer Active Baltazar silverman MD Active TRAMADOL HCL 50 MG TABS 1 twice a day as needed for pain TRAMADOL HCL 83738154601 Active Baltazar Childers MD Active NAPROXEN 500 MG TABS 1 tablet by mouth twice daily NAPROXEN 74213518141 No Longer Active Baltazar Childers MD Active PROAIR HFA 108 (90 BASE) MCG/ACT AERS 2 puffs four times a d ay as needed ALBUTEROL SULFATE 27731964049 Active Baltazar Childers MD Active DEPO-TESTOSTERONE 200 MG/ML OIL as directed RUFINO TOSTERONE CYPIONATE 97956551050 No Longer Active Baltazar Childers MD Active LIPITOR 20 MG TABS Take one by mouth daily in evening ATORVASTATIN CALCIUM 78308611391 No Longer Active Baltazar Childers MD Activ e CRESTOR 10 MG TABS 1 by mouth every day R OSUVASTATIN CALCIUM 76196584388 No Longer Active Baltazar Childers MD Activ e PHENTERMINE HCL 37.5 MG TABS Take one by mouth daily 2 PHENTERMINE HCL 77861352898 No Longer Active Baltazar Childers MD Activ e ROBAXIN-750 750 MG TABS Take one by mouth daily ME THOCARBAMOL 28629975363 Active Baltazar Childers MD Active TIZANIDINE HCL 4 MG TABS 1 daily as needed for muscle spasm 2011 TIZANIDINE HCL 58357706010 No Longer Active Dawna Salazar RN Active [id number] 50-325-40 MG TABS 1 four time s a day as needed for heacache [id number] 88707195816 Active KENDALL Juarez Active SUMATRIPTAN SUCCINATE 100 MG TABS 1 tablet by mouth at onset of migraine as needed SUMATRIPTAN SUCCINATE 13528173123 Active Baltazar bynum MD Active LORATADINE 10 MG TABS Take one by mouth daily LORATADINE 96552635871 Active Baltazar Childers MD Active OMEPRAZOLE 20 MG CPDR Take one by mouth daily OMEPRAZOLE 75878103535 Active Baltazar Childers MD Active HYDROXYZINE HCL 25 MG TABS Take one by mouth daily HYDROXYZINE HCL 77761900053 Active Baltazar Childers MD Active ALPRAZOLAM 1 MG TABS 1 tablet by mouth daily at bedtime for restles s leg ALPRAZOLAM 46792492541 Active Baltazar Childers MD Active METFORMIN HCL 1000 MG TABS Take one by mouth twice daily METFORMIN HCL 90216100413 Active Baltazar Childers MD Active TIZANIDINE HCL 4 MG TABS 1 daily as needed for muscle spasm 2011 TIZANIDINE HCL 4 MG TABS 446157 TIZANIDINE HCL Inactiv e PHENTERMINE HCL 37.5 MG TABS Take one by mouth daily 2 PHENTERMINE HCL 37.5 MG TABS 373459 PHENTERMINE HCL Inactive CRESTOR 10 MG TABS 1 by mouth every day C RESTOR 10 MG TABS 120038 ROSUVASTATIN CALCIUM Inactive LIPITOR 20 MG TABS Take one by mouth daily in evening LIPITOR 20 MG TABS 468043 ATORVASTATIN CALCIUM Inactive DEPO-TESTOSTERONE 200 MG/ML OIL as directed 8 DEPO-TESTOSTERONE 200 MG/ML OIL 557798 TESTOSTERONE CYPIONATE Inactive NAPROXEN 500 MG TABS 1 tablet by mouth twice daily 201 07/27/22 NAPROXEN 500 MG TABS 080666 NAPROXEN Inactive GABAPENTIN 300 MG CAPS 1 po qd x 2 days, then 1 po BID x 2 d ays, then 1 po TID GABAPENTIN 300 MG CAPS 578293 GABAPENTIN Inact amie ONETOUCH ULTRA BLUE STRP Test twice a day ONETOUCH ULTRA BLUE STRP GLUCOSE BLOOD Inactive NAPROXEN SODIUM 220 MG ORAL TABS 1 three times a day as needed 2 NAPROXEN SODIUM 220 MG ORAL TABS 947156 NAPROXEN SODIUM Inactive TOUJEO SOLOSTAR 300 UNIT/ML SC SOPN 10 units SC daily TOUJEO SOLOSTAR 300 UNIT/ML SC SOPN INSULIN GLARGINE Inac tive SUCRALFATE 1 GM TABS 1 four times a day to coat the stomach 2015 SUCRALFATE 1 GM TABS 739848 SUCRALFATE Inactive ZITHROMAX Z-ISAIAS 250 MG TABS Take two tablets today and then 1 tablet daily for 4 days ZITHROMAX Z-ISAIAS 250 MG TABS 558101 AZITHROM YCIN Inactive Immunizations Vaccine Administration Date Value Standard Floyd cription pneumococcal immunization administered Pneumovax 23 [CVX33] pneumococcal polysaccharide vaccine, 23 valent Seasonal influenza vaccine, injectable, containing preservative, for > 3 years old (Afluria, FluLaval, Fluzone, Fluvirin, Fluarix, Agriflu(>= 18 yo)) Fluzone (>3 yrs.) [SYO971] Influenza, seasonal, inject able Seasonal influenza vaccine, injectable, containing preservative, for > 3 years old (Afluria, FluLaval, Fluzone, Fluvirin, Fluarix, Agriflu(>= 18 yo)) Fluzone (>3 yrs.) [LYM508] Influenza, seasonal, inject able Vital Signs Date [...] - Chem istry sodium, serum 139 mmol/L 950-393 0819/10/03 potassium, serum 4.7 mmol/L 3.5-5.2 chloride, serum 98 mmol/L 98-107 carbon dioxide, venous blood 28.7 mmol/L 21.0-32 .0 blood glucose 218 mg/dL 65-110 calcium, serum 9.8 mg/dL 8.5-10.1 urea nitrogen, blood 19 mg/dL 7-18 creatinine, serum 1.68 mg/dL 0.60-1.30 Lab Report: Basic Metabolic Panel, HGBA1 C - Chemistry sodium, serum 143 mmol/L 808-763 0599/06/19 potassium, serum 5.9 mmol/L 3.5-5.2 chloride, serum 105 mmol/L 98-107 carbon dioxide, venous blood 30.2 mmol/L 21.0-32 .0 blood glucose 189 mg/dL 65-110 calcium, serum 9.7 mg/dL 8.5-10.1 urea nitrogen, blood 37 mg/dL 7-18 creatinine, serum 2.11 mg/dL 0.55-1.30 hemoglobin A1C, blood, as % of total hemoglobin 8.2 % 4.3-6.0 Lab Report: CBC, Renal Panel - Chemistry sodium, serum 142 mmol/L 601-634 7764/08/11 potassium, serum 4.8 mmol/L 3.5-5.2 chloride, serum [...] Panel - Chemistry sodium, serum 143 mmol/L 194-069 8407/12/19 carbon dioxide, venous blood 32.5 mmol/L 21.0-32 .0 potassium, serum 4.9 mmol/L 3.5-5.2 chloride, serum 101 mmol/L 98-107 blood glucose 129 mg/dL 65-110 urea nitrogen, blood 18 mg/dL 7-18 creatinine, serum 1.79 mg/dL 0.55-1.30 alanine aminotransferase (SGPT), serum 34 U/L 12-78 aspartate aminotransferase (SGOT), serum 26 U/L 15-37 calcium, serum 8.9 mg/dL 8.5-10.1 bilirubin, serum, total 0.30 mg/dL 0.00-1.00 cholesterol, serum 214 mg/dL 210-739 1015/12/19 triglyceride, serum, fasting 351 mg/dL 30-200 HDL [...] 4.3-6.0 Encounters Code Encounter Date Provider Facility CPT-85234 Level 4 Est. Patient 12:25:11 CDT Baltazar Childers MD [facility] CPT-33222 Level 4 Est. Patient 14:22:31 CDT Baltazar Childers MD [facility] [place]-48730 Level 4 Est. Patient 15:44:38 CDT Shonna Parker APRN [facility] [place]-29872 Level 4 Est. Patient 11:34:17 CDT Baltazar Childers MD [facility] [place]-93409 Level 3 Est. Patient 16:40:40 CDT Baltazar Childers MD [facility] [place]-82284 Level 4 Est. Patient 10:41:24 CDT Baltazar Childers MD [facility] [place]-58135 Level 4 Est. Patient 16:01:48 CDT Baltazar Childers MD [facility] [place]-20195 Level 4 Est. Patient 16:54:07 NUCLEAR MEDICINE PHYSICIAN Baltazar Childers MD [facility] [place]-94559 Level 4 Est. Patient 15:42:12 CDT Baltazar Childers MD [facility] CPT-85647 Level 4 Est. Patient 11:29:55 CDT Baltazar Childers MD [facility] CPT-25309 Level 4 Est. Patient 14:15:19 CDT Baltazar Childers MD [facility]-18032 Level 4 Est. Patient 12:20:13 CDT Baltazar Childers MD [facility]-87825 Level 4 Est. Patient 14:52:45 NUCLEAR MEDICINE PHYSICIAN Baltazar Childers MD [facility] CPT-69007 Level 4 Est. Patient 14:18:34 NUCLEAR MEDICINE PHYSICIAN Baltazar Childers MD [facility] CPT-90204 Level 4 Est. Patient 15:18:29 CDT Baltazar Childers MD [facility]-56388 Level 3 Est. Patient 12:45:34 CDT Baltazar Childers MD [facility]-75120 Level 3 Est. Patient 10:10:11 CDT Baltazar Childers MD [facility] CPT-30240 Level 3 Est. Patient 14:07:50 CDT Baltazar Childers MD [facility] CPT-98074 Level 4 Est. Patient 12:26:10 NUCLEAR MEDICINE PHYSICIAN Baltazar Childers MD [facility] CPT-48720 Level 4 Est. Patient 14:45:38 CDT Baltazar Childers MD [facility] CPT-41941 Level 4 New Patient 12:30:48 CDT Baltazar hinton MD [facility] Procedures Code Procedure Name Date Entry Date Standard Desc ription CPT-72846 First Vx - Ix admin via ID I M or jet injects without counseling by physician 13:08:59 CDT CPT-79903 Fluzone Quadrivalent Intramuscular Suspe nsion 0.5 ML 13:08:59 CDT CPT-38992 Venipuncture Draw Fee 12:04:12 CDT CPT-67782 Lipid - LAB USE ONLY 17:39:15 NUCLEAR MEDICINE PHYSICIAN 9 CPT-96150 HGBA1C - LAB USE ONLY 17:39:15 NUCLEAR MEDICINE PHYSICIAN CPT-85164 CMP - LAB USE ONLY 17:39:14 NUCLEAR MEDICINE PHYSICIAN CPT-75769 Venipuncture Draw Fee 17:39:14 NUCLEAR MEDICINE PHYSICIAN CPT-06981 First Vx - Ix admin via ID I M or jet injects without counseling by physician 16:55:17 NUCLEAR MEDICINE PHYSICIAN CPT-17961 Fluzone Quadrivalent Intramuscular Suspe nsion 0.5 ML 16:55:17 NUCLEAR MEDICINE PHYSICIAN CPT-76461 Renal Panel - LAB USE ONLY 17:39:20 CDT 201 10/31/07 CPT-21865 CBC - LAB USE ONLY 17:39:20 CDT CPT-27592 Venipuncture Draw Fee 17:39:20 CDT CPT-65819 Venipuncture Draw Fee 14:33:30 CDT CPT-15489 Renal Panel - LAB USE ONLY 14:33:30 CDT 201 10/31/07 CPT-74503 CBC - LAB USE ONLY 14:33:29 CDT CPT-94169 Venipuncture Draw Fee 14:50:21 NUCLEAR MEDICINE PHYSICIAN CPT-57033 Immunization Single Admin 17:35:35 CDT 2014 CPT-08421 Fluzone Quadrivalent preservative free ( >=3yrs.) 17:35:35 CDT CPT-17210 Venipuncture Draw Fee 12:10:27 NUCLEAR MEDICINE PHYSICIAN CPT-95654 Fluzone Quadrivalent Intramuscular Suspe nsion 0.5 ML 10:49:13 CDT CPT-05998 First Vx Component - Ix admi n via ID IM or jet inj without physician counseling 15:17:19 NUCLEAR MEDICINE PHYSICIAN CPT-50844 Pneumovax 23 15:17:19 NUCLEAR MEDICINE PHYSICIAN CPT-53627 Pneumovax 14:52:45 NUCLEAR MEDICINE PHYSICIAN CPT-90702 Venipuncture Draw Fee 14:06:30 NUCLEAR MEDICINE PHYSICIAN CPT-000 Give Appropriate Flu Vaccine 14:18:34 NUCLEAR MEDICINE PHYSICIAN 2 CPT-55296 Administration single or combination vac cine inc oral 14:46:00 NUCLEAR MEDICINE PHYSICIAN CPT-36931 Influenza split virus > age 3 14:46:00 NUCLEAR MEDICINE PHYSICIAN CPT-OV Office Visit 19:13:16 CDT CPT-16037 Zostavax 18:41:56 CDT CPT-54081 Administration single or combination vac cine inc oral 12:56:39 CDT CPT-89809 Zoster Vaccine (Zostavax) 12:56:39 CDT 2012 CPT-15594 Venipuncture Draw Fee 10:58:57 CDT CPT-25890 Sono pelvis non OB uterus ovaries cervix 17:45:04 CDT CPT-11307 Sono retroperitoneal complete kidneys an d bladder 17:14:36 CDT CPT-OV Office Visit 14:59:38 NUCLEAR MEDICINE PHYSICIAN CPT-J1070 Depo Testosterone 100 mg 14:50:13 CDT 03/05 CPT-66916 Abx/Therapy Injection 14:50:13 CDT CPT-68517 Administration single or combination vac cine inc oral 14:34:43 CDT CPT-63240 Influenza split virus > age 3 14:34:43 CDT CPT-J1070 Depo Testosterone 100 mg 17:37:13 CDT 01/11 CPT-50929 Abx/Therapy Injection 17:37:13 CDT CPT-84081 Venipuncture Draw Fee 16:30:13 CDT CPT-25712 Venipuncture Draw Fee 16:29:43 CDT CPT-J1070 Depo Testosterone 100 mg 14:45:38 CDT 01/11
--- OUTSIDE RECORDS SUMMARY | 2019-10-27 12:56 | XMS REPORT | Clinical Summary ---
Author Author Admin, Elba Lance [facility] Address Unknown [...] mention of hyperactivity DECREASED LIBIDO 799.81 Active Blatazar Wayne Decreased libido COLON POLYPS 211.3 Resolved Lolis Thomas [employer] Benign neoplasm of colon PERIPHERAL NEUROPATHY 356.9 Active Baltazar Nickerson MD Unspecified hereditary and idiopathic peripheral neuropathy PERSONAL HISTORY OF COLONIC POLYPS V12.72 Active 2 Lolis Thomas [employer] Personal history of colonic polyps PARESTHESIA, HANDS [...] three times a day 201 12/03/26 GABAPENTIN 77179826925 No Longer Active Baltazar Childers MD Activ e LISINOPRIL 20 MG ORAL TABLET 1 tablet by mouth daily at night 2016 LISINOPRIL 92190190794 Active Baltazar Childers MD Active ZITHROMAX Z-ISAIAS 250 MG ORAL TABLET Take two tablets to day and then 1 tablet daily for 4 days AZITHROMYCIN 70643097966 No Longer A ctive Baltazar Childers MD Active LANTUS SOLOSTAR 100 UNIT/ML SUBCUTANEOUS SOLUTION PEN- INJECTOR 30 units SC daily INSULIN GLARGINE 27847280636 Active Baltazar Childers MD Active AMLODIPINE BESYLATE 5 MG ORAL TABLET 1 tab daily for HTN AMLODIPINE BESYLATE 58285402932 Active KENDALL Juarez Active SYNTHROID 100 MCG ORAL TABLET 1 tablet by mouth daily LEVOTHYROXINE SODIUM 71605022019 Active Baltazar Childers MD Active GLIPIZIDE 10 MG ORAL TABLET take 2 tablets twice daily GLIPIZIDE 11942657493 Active Baltazar Childers MD Active SUCRALFATE 1 GM ORAL TABLET 1 four times a day to coat the stoma ch SUCRALFATE 78960026886 No Longer Active Baltazar Childers MD Active PEN NEEDLES 31G X 6 MM use 1 daily INSULIN PEN NE EDLE 44576696673 Active KENDALL Juarez Active TOUJEO SOLOSTAR 300 UNIT/ML SUBCUTANEOUS SOLUTION PEN- INJECTOR 10 units SC daily INSULIN GLARGINE 10249537387 No Longer Active Rola ARGUETA Active NAPROXEN SODIUM 220 MG ORAL TABLET 1 three times a day as needed NAPROXEN SODIUM 81582525802 No Longer Active Baltazar Childers MD Active ATORVASTATIN CALCIUM 20 MG ORAL TABLET Take 1 tab daily ATORVASTATIN CALCIUM 50826727322 Active Baltazar Childers MD A ctive FUROSEMIDE 40 MG ORAL TABLET Take one by mouth daily FUROSEMIDE 19226703864 Active Baltazar Childers MD Active LISINOPRIL 20 MG ORAL TABLET Take one by mouth daily at bedtime LISINOPRIL 53806493820 No Longer Active Baltazar Childers MD Active ONETOUCH ULTRA BLUE IN VITRO STRIP Test twice a day 20 07/11/11 GLUCOSE BLOOD 27693159610 No Longer Active Baltazar Childers MD Acti ve TRUEPLUS LANCETS 33G Test twice a day LANCETS 0683060 8915 Active KENDALL Juarez Active TRUEDRAW LANCING DEVICE Test twice a day LANCET DEVICES 27217959734 Active Baltazar Childers MD Active TRUETRACK TEST IN VITRO STRIP Test twice a day GLUCOSE BLOOD 53893232172 Active KENDALL Juarez Active TRUETRACK BLOOD GLUCOSE w/Device KIT Test twice a day BLOOD GLUCOSE MONITORING SUPPL 24367271703 Active Baltazar Childers MD Activ e HYDROCODONE-ACETAMINOPHEN 7.5-325 MG ORAL TABLET Take 1 tab every 6-8 hours PRN HYDROCODONE-ACETAMINOPHEN 57251427932 Active Baltazar Nickerson MD Active NORTRIPTYLINE HCL 50 MG ORAL CAPSULE 1 every night for neuropathy 2 NORTRIPTYLINE HCL 16541899726 Active Baltazar Childers MD Acti ve GABAPENTIN 300 MG ORAL CAPSULE 1 po qd x 2 days, then 1 po BID x 2 days, then 1 po TID GABAPENTIN 28463715298 No Longer Active Baltazar Childers MD Active TRAMADOL HCL 50 MG ORAL TABLET 1 twice a day as needed for pain 201 07/27/28 TRAMADOL HCL 70600788107 Active Baltazar Childers MD Active NAPROXEN 500 MG ORAL TABLET 1 tablet by mouth twice daily NAPROXEN 62967001537 No Longer Active Baltazar Childers MD Active PROAIR HFA 108 (90 Base) MCG/ACT INHALATION AEROSOL SO LUTION 2 puffs four times a day as needed ALBUTEROL SULFATE 67479037624 Active KENDALL Bowie Active DEPO-TESTOSTERONE 200 MG/ML INTRAMUSCULAR SOLUTION as directed TESTOSTERONE CYPIONATE 95236549586 No Longer Active Baltazar Childers MD Active LIPITOR 20 MG ORAL TABLET Take one by mouth daily in evening ATORVASTATIN CALCIUM 17931942144 No Longer Active Baltazar Childers MD Active CRESTOR 10 MG ORAL TABLET 1 by mouth every day ROSUVASTATIN CALCIUM 03446727531 No Longer Active Baltazar Childers MD Active PHENTERMINE HCL 37.5 MG ORAL TABLET Take one by mouth daily PHENTERMINE HCL 82654779228 No Longer Active Baltazar Childers MD Ac tive ROBAXIN-750 750 MG ORAL TABLET Take one by mouth daily METHOCARBAMOL 39549770513 Active KENDALL Juarez Active TIZANIDINE HCL 4 MG ORAL TABLET 1 daily as needed for muscle spa sm TIZANIDINE HCL 79930395274 No Longer Active Dawna Salazar RN Active [id number] 50-325-40 MG ORAL TABLET 1 fo ur times a day as needed for heacache [id number] 26376700552 Active Baltazar Childers MD Active SUMATRIPTAN SUCCINATE 100 MG ORAL TABLET 1 tablet by m outh at onset of migraine as needed SUMATRIPTAN SUCCINATE 99635646460 Active KENDALL Restrepo Active LORATADINE 10 MG ORAL TABLET Take one by mouth daily LORATADINE 23366959870 Active KENDALL Juarez Active OMEPRAZOLE 20 MG ORAL CAPSULE DELAYED RELEASE Take one by mouth jostin ly OMEPRAZOLE 38011358246 Active Baltazar Childers MD Active HYDROXYZINE HCL 25 MG ORAL TABLET Take one by mouth daily HYDROXYZINE HCL 99666163078 Active Baltazar Childers MD Active ALPRAZOLAM 1 MG ORAL TABLET 1 [facility] 90533186663 Active Baltazar Childers MD Active METFORMIN HCL 1000 MG ORAL TABLET Take one by mouth twice daily METFORMIN HCL 65519209820 Active Baltazar Childers MD Active TIZANIDINE HCL 4 MG ORAL TABLET 1 daily as needed for muscle spa sm TIZANIDINE HCL 4 MG ORAL TABLET 766110 TIZANIDINE HCL Inactive PHENTERMINE HCL 37.5 MG ORAL TABLET Take one by mouth daily PHENTERMINE HCL 37.5 MG ORAL TABLET 998428 PHENTERMINE HCL Inac tive CRESTOR 10 MG ORAL TABLET 1 by mouth every day CRESTOR 10 MG ORAL TABLET 114196 ROSUVASTATIN CALCIUM Inactive LIPITOR 20 MG ORAL TABLET Take one by mouth daily in evening LIPITOR 20 MG ORAL TABLET 072565 ATORVASTATIN CALCIUM Inactive DEPO-TESTOSTERONE 200 MG/ML INTRAMUSCULAR SOLUTION as directed DEPO-TESTOSTERONE 200 MG/ML INTRAMUSCULAR SOLUTION 592351 RUFINO TOSTERONE CYPIONATE Inactive NAPROXEN 500 MG ORAL TABLET 1 tablet by mouth twice daily NAPROXEN 500 MG ORAL TABLET 855050 NAPROXEN Inactive GABAPENTIN 300 MG ORAL CAPSULE 1 po qd x 2 days, then 1 po BID x 2 days, then 1 po TID GABAPENTIN 300 MG ORAL CAPSULE 723340 GABAP ENTIN Inactive ONETOUCH ULTRA BLUE IN VITRO STRIP Test twice a day 07/11/11 ONETOUCH ULTRA BLUE IN VITRO STRIP GLUCOSE BLOOD Inact amie NAPROXEN SODIUM 220 MG ORAL TABLET 1 three times a day as needed NAPROXEN SODIUM 220 MG ORAL TABLET 379999 NAPROXEN SODI UM Inactive TOUJEO SOLOSTAR 300 UNIT/ML SUBCUTANEOUS SOLUTION PEN- INJECTOR 10 units SC daily TOUJEO SOLOSTAR 300 UNIT/ML SUBCUTANEOUS SOLUTION PEN-INJECTOR INSULIN GLARGINE Inactive SUCRALFATE 1 GM ORAL TABLET 1 four times a day to coat the stoma ch SUCRALFATE 1 GM ORAL TABLET 668758 SUCRALFATE Inac tive GABAPENTIN 300 MG ORAL CAPSULE 1 three times a day 201 12/03/26 GABAPENTIN 300 MG ORAL CAPSULE 455115 GABAPENTIN Inactive ZITHROMAX Z-ISAIAS 250 MG ORAL TABLET Take two tablets to day and then 1 tablet daily for 4 days ZITHROMAX Z-ISAIAS 250 MG ORAL TAB LET 034910 AZITHROMYCIN Inactive Immunizations Vaccine Administration Date Value Standard Floyd cription pneumococcal immunization administered Pneumovax 23 [CVX33] pneumococcal polysaccharide vaccine, 23 valent Seasonal influenza vaccine, injectable, containing preservative, for > 3 years old (Afluria, FluLaval, Fluzone, Fluvirin, Fluarix, Agriflu(>= 18 yo)) Fluzone (>3 yrs.) [[id number]] Influenza, seasonal, inject able Seasonal influenza vaccine, injectable, containing preservative, for > 3 years old (Afluria, FluLaval, Fluzone, Fluvirin, Fluarix, Agriflu(>= 18 yo)) Fluzone (>3 yrs.) [[id number]] Influenza, seasonal, inject able Vital Signs Date [...] - Chem istry sodium, serum 139 mmol/L 134-109 0744/10/03 potassium, serum 4.7 mmol/L 3.5-5.2 chloride, serum 98 mmol/L 98-107 carbon dioxide, venous blood 28.7 mmol/L 21.0-32 .0 blood glucose 218 mg/dL 65-110 calcium, serum 9.8 mg/dL 8.5-10.1 urea nitrogen, blood 19 mg/dL 7-18 creatinine, serum 1.68 mg/dL 0.60-1.30 Lab Report: CBC, Renal Panel - Chemistry sodium, serum 142 mmol/L 890-944 7362/08/11 potassium, serum 4.8 mmol/L 3.5-5.2 chloride, serum [...] (L) - Chemistry cholesterol, serum 209 mg/dL 963-418 0435/12/27 triglyceride, serum, fasting 329 mg/dL 30-200 HDL cholesterol, serum 56 mg/dL 32-60 LDL cholesterol, serum 87 mg/dL 0-130 TSH 3.60 m[iU]/mL 0.36-3.74 Encounters Code Encounter Date Provider Facility CPT-15045 Level 4 Est. Patient 17:05:37 CDT Baltazar Childers MD [facility] CPT-19778 Level 4 Est. Patient 16:21:19 [employer] Baltazar Childers MD [facility] CPT-02895 Level 4 Est. Patient 12:25:11 CDT Baltazar Childers MD [facility] CPT-23742 Level 4 Est. Patient 14:22:31 CDT Baltazar Childers MD [facility] CPT-65972 Level 4 Est. Patient 15:44:38 CDT Shonna Parker [facility] CPT-42624 Level 4 Est. Patient 11:34:17 CDT Baltazar Childers MD [facility] CPT-08254 Level 3 Est. Patient 16:40:40 CDT Baltazar Childers MD [facility] CPT-37762 Level 4 Est. Patient 10:41:24 CDT Baltazar Childers MD [facility] CPT-29663 Level 4 Est. Patient 16:01:48 CDT Baltazar Childers MD [facility] CPT-14446 Level 4 Est. Patient 16:54:07 [employer] Baltazar Childers MD [facility] CPT-17807 Level 4 Est. Patient 15:42:12 CDT Baltazar Childers MD [facility] CPT-84755 Level 4 Est. Patient 11:29:55 CDT Baltazar Childers MD [facility] CPT-06102 Level 4 Est. Patient 14:15:19 CDT Baltazar Childers MD [facility] CPT-75678 Level 4 Est. Patient 12:20:13 CDT Baltazar Childers MD [facility] CPT-84071 Level 4 Est. Patient 14:52:45 [employer] Baltazar Childers MD [facility] CPT-02528 Level 4 Est. Patient 14:18:34 [employer] Baltazar Childers MD [facility] CPT-60504 Level 4 Est. Patient 15:18:29 CDT Baltazar Childers MD [facility] CPT-64621 Level 3 Est. Patient 12:45:34 CDT Baltazar Childers MD [facility] CPT-14948 Level 3 Est. Patient 10:10:11 CDT Baltazar Childers MD [facility] CPT-95273 Level 3 Est. Patient 14:07:50 CDT Baltazar Childers MD [facility] CPT-05117 Level 4 Est. Patient 12:26:10 [employer] Baltazar Childers MD [facility] CPT-25557 Level 4 Est. Patient 14:45:38 CDT Baltazar Childers MD [facility] CPT-05343 Level 4 New Patient 12:30:48 CDT Baltazar hinton MD [facility] Procedures Code Procedure Name Date Entry Date Standard Desc ription CPT-000 Give Appropriate Flu Vaccine 12:25:14 CDT 2 CPT-19939 First Vx - Ix admin via ID I M or jet injects without counseling by physician 13:08:59 CDT CPT-55518 Fluzone Quadrivalent Intramuscular Suspe nsion 0.5 ML 13:08:59 CDT CPT-88558 Venipuncture Draw Fee 12:04:12 CDT CPT-08354 Lipid - LAB USE ONLY 17:39:15 [employer] 9 CPT-02800 HGBA1C - LAB USE ONLY 17:39:15 [employer] CPT-22101 CMP - LAB USE ONLY 17:39:14 [employer] CPT-92558 Venipuncture Draw Fee 17:39:14 [employer] CPT-29839 First Vx - Ix admin via ID I M or jet injects without counseling by physician 16:55:17 [employer] CPT-27123 Fluzone Quadrivalent Intramuscular Suspe nsion 0.5 ML 16:55:17 [employer] CPT-56857 Renal Panel - LAB USE ONLY 17:39:20 CDT 201 10/31/07 CPT-44504 CBC - LAB USE ONLY 17:39:20 CDT CPT-72025 Venipuncture Draw Fee 17:39:20 CDT CPT-01455 Venipuncture Draw Fee 14:33:30 CDT CPT-53274 Renal Panel - LAB USE ONLY 14:33:30 CDT 201 10/31/07 CPT-87894 CBC - LAB USE ONLY 14:33:29 CDT CPT-22585 Venipuncture Draw Fee 14:50:21 [employer] CPT-91397 Immunization Single Admin 17:35:35 CDT 2014 CPT-53819 Fluzone Quadrivalent preservative free ( >=3yrs.) 17:35:35 CDT CPT-29606 Venipuncture Draw Fee 12:10:27 [employer] CPT-43511 Fluzone Quadrivalent Intramuscular Suspe nsion 0.5 ML 10:49:13 CDT CPT-23973 First Vx Component - Ix admi n via ID IM or jet inj without physician counseling 15:17:19 [employer] CPT-09816 Pneumovax 23 15:17:19 [employer] CPT-08953 Pneumovax 14:52:45 [employer] CPT-03108 Venipuncture Draw Fee 14:06:30 [employer] CPT-000 Give Appropriate Flu Vaccine 14:18:34 [employer]GER 2 CPT-73297 Administration single or combination vac cine inc oral 14:46:00 [employer] CPT-95550 Influenza split virus > age 3 14:46:00 [employer] CPT-OV Office Visit 19:13:16 CDT CPT-53381 Zostavax 18:41:56 CDT CPT-34934 Administration single or combination vac cine inc oral 12:56:39 CDT CPT-78129 Zoster Vaccine (Zostavax) 12:56:39 CDT 2012 CPT-87235 Venipuncture Draw Fee 10:58:57 CDT CPT-15655 Sono pelvis non OB uterus ovaries cervix 17:45:04 CDT CPT-22806 Sono retroperitoneal complete kidneys an d bladder 17:14:36 CDT CPT-OV Office Visit 14:59:38 [employer] CPT-J1070 Depo Testosterone 100 mg 14:50:13 CDT 03/05 CPT-73847 Abx/Therapy Injection 14:50:13 CDT CPT-03563 Administration single or combination vac cine inc oral 14:34:43 CDT CPT-97514 Influenza split virus > age 3 14:34:43 CDT CPT-J1070 Depo Testosterone 100 mg 17:37:13 CDT 01/11 CPT-46233 Abx/Therapy Injection 17:37:13 CDT CPT-11798 Venipuncture Draw Fee 16:30:13 CDT CPT-17405 Venipuncture Draw Fee 16:29:43 CDT CPT-J1070 Depo Testosterone 100 mg 14:45:38 CDT 01/11
--- OUTSIDE RECORDS SUMMARY | 2019-10-27 12:56 | XMS REPORT | Clinical Summary ---
Author Author Admin, 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 Benign neoplasm of colon PERIPHERAL NEUROPATHY [...] of unspecified type of vessel, [place] or graft OTH NONSPC ABN FINDNG RAD&OTH [...] 1 tab daily for HTN AMLODIPINE BESYLATE 00039838924 Active Ct Ledesma LPN Active SYNTHROID 0.1 MG TAB 1 tablet by mouth daily LE VOTHYROXINE SODIUM 04382938241 Active Carina Tucker LPN Active GLIPIZIDE 10 MG TAB take 2 tablets twice daily GLIPIZIDE 46250681896 Active Baltazar Childers MD Active SUCRALFATE 1 GM TABS 1 four times a day to coat the stomach 2015 SUCRALFATE 30156876572 No Longer Active Baltazar Childers MD Active PEN NEEDLES 31G X 6 MM MISC use 1 daily INSULIN PEN NEEDLE 59275355646 Active Bella Suarez 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 TOUJEO SOLOSTAR 300 UNIT/ML SC SOPN 10 units SC daily INSULIN GLARGINE 21780369546 No Longer Active Martita Godinez RMA Active LANTUS SOLOSTAR 100 UNIT/ML SC SOPN 10 units SC daily INSULIN GLARGINE 33932622441 Active Baltazar Childers MD Active NAPROXEN SODIUM 220 MG ORAL TABS 1 three times a day as needed 2 NAPROXEN SODIUM 22524750437 No Longer Active Baltazar Childers MD Active ATORVASTATIN CALCIUM 20 MG ORAL TABS Take 1 tab daily ATORVASTATIN CALCIUM 91919640682 Active Baltazar Childers MD Active FUROSEMIDE 40 MG TABS Take one by mouth daily FUROSEMIDE 25242995842 Active Baltazar Childers MD Active LISINOPRIL 20 MG TABS Take one by mouth daily at bedtime LISINOPRIL 99943388013 No Longer Active Baltazar Childers MD Active ONETOUCH ULTRA BLUE STRP Test twice a day GLUCO SE BLOOD 90511000958 No Longer Active Baltazar Childers MD Active TRUEPLUS LANCETS 33G MISC Test twice a day LANCET S 11695459768 Active KENDALL Juarez Active TRUEDRAW LANCING DEVICE MISC Test twice a day L ANCET DEVICES 52233603871 Active Baltazar Childers MD Active TRUETRACK TEST STRP Test twice a day GLUCOSE BLOO D 34160261105 Active KENDALL Juarez Active TRUETRACK BLOOD GLUCOSE W/DEVICE KIT Test twice a day BLOOD GLUCOSE MONITORING SUPPL 57171557394 Active Baltazar Childers MD Activ e HYDROCODONE-ACETAMINOPHEN 7.5-325 MG TABS Take 1 tab every 6-8 hour s PRN HYDROCODONE-ACETAMINOPHEN 67313668611 Active Baltazar Childers MD Active NORTRIPTYLINE HCL 50 MG CAPS 1 every night for neuropathy 4 NORTRIPTYLINE HCL 31988318847 Active Baltazar Childers MD Acti ve GABAPENTIN 300 MG CAPS 1 three times a day GABAPE NTIN 12488058393 Active Baltazar Childers MD Active GABAPENTIN 300 MG CAPS 1 po qd x 2 days, then 1 po BID x 2 d ays, then 1 po TID GABAPENTIN 22287930172 No Longer Active Baltazar silverman MD Active TRAMADOL HCL 50 MG TABS 1 twice a day as needed for pain TRAMADOL HCL 43820316620 Active Baltazar Childers MD Active NAPROXEN 500 MG TABS 1 tablet by mouth twice daily NAPROXEN 64061990465 No Longer Active Baltazar Childers MD Active PROAIR HFA 108 (90 BASE) MCG/ACT AERS 2 puffs four times a d ay as needed ALBUTEROL SULFATE 31867846079 Active Baltazar Childers MD Active DEPO-TESTOSTERONE 200 MG/ML OIL as directed RUFINO TOSTERONE CYPIONATE 19214324568 No Longer Active Baltazar Childers MD Active LIPITOR 20 MG TABS Take one by mouth daily in evening ATORVASTATIN CALCIUM 21005908662 No Longer Active Baltazar Childers MD Activ e CRESTOR 10 MG TABS 1 by mouth every day R OSUVASTATIN CALCIUM 08291345612 No Longer Active Baltazar Childers MD Activ e PHENTERMINE HCL 37.5 MG TABS Take one by mouth daily 2 PHENTERMINE HCL 95791119170 No Longer Active Baltazar Childers MD Activ e ROBAXIN-750 750 MG TABS Take one by mouth daily ME THOCARBAMOL 37526002773 Active Baltazar Childers MD Active TIZANIDINE HCL 4 MG TABS 1 daily as needed for muscle spasm 2011 TIZANIDINE HCL 79810919871 No Longer Active Dawna Salazar RN Active [id number] 50-325-40 MG TABS 1 four time s a day as needed for heacache [id number] 26536448053 Active Baltazar Childers MD Active SUMATRIPTAN SUCCINATE 100 MG TABS 1 tablet by mouth at onset of migraine as needed SUMATRIPTAN SUCCINATE 14171569460 Active Shonna richey APRN Active LORATADINE 10 MG TABS Take one by mouth daily LORATADINE 68373617564 Active KENDALL Juarez Active OMEPRAZOLE 20 MG CPDR Take one by mouth daily OMEPRAZOLE 88610981296 Active Baltazar Childers MD Active HYDROXYZINE HCL 25 MG TABS Take one by mouth daily HYDROXYZINE HCL 65474272572 Active Baltazar Childers MD Active ALPRAZOLAM 1 MG TABS 1 tablet by mouth daily at bedtime for restles s leg ALPRAZOLAM 57568763825 Active Baltazar Childers MD Active METFORMIN HCL 1000 MG TABS Take one by mouth twice daily METFORMIN HCL 93270726848 Active Baltazar Childers MD Active TIZANIDINE HCL 4 MG TABS 1 daily as needed for muscle spasm 2011 TIZANIDINE HCL 4 MG TABS 382061 TIZANIDINE HCL Inactiv e PHENTERMINE HCL 37.5 MG TABS Take one by mouth daily 2 PHENTERMINE HCL 37.5 MG TABS 326220 PHENTERMINE HCL Inactive CRESTOR 10 MG TABS 1 by mouth every day C RESTOR 10 MG TABS 624656 ROSUVASTATIN CALCIUM Inactive LIPITOR 20 MG TABS Take one by mouth daily in evening LIPITOR 20 MG TABS 713025 ATORVASTATIN CALCIUM Inactive DEPO-TESTOSTERONE 200 MG/ML OIL as directed 8 DEPO-TESTOSTERONE 200 MG/ML OIL 437318 TESTOSTERONE CYPIONATE Inactive NAPROXEN 500 MG TABS 1 tablet by mouth twice daily 201 07/27/22 NAPROXEN 500 MG TABS 078234 NAPROXEN Inactive GABAPENTIN 300 MG CAPS 1 po qd x 2 days, then 1 po BID x 2 d ays, then 1 po TID GABAPENTIN 300 MG CAPS 402407 GABAPENTIN Inact amie ONETOUCH ULTRA BLUE STRP Test twice a day ONETOUCH ULTRA BLUE STRP GLUCOSE BLOOD Inactive NAPROXEN SODIUM 220 MG ORAL TABS 1 three times a day as needed 2 NAPROXEN SODIUM 220 MG ORAL TABS 567239 NAPROXEN SODIUM Inactive TOUJEO SOLOSTAR 300 UNIT/ML SC SOPN 10 units SC daily TOUJEO SOLOSTAR 300 UNIT/ML SC SOPN INSULIN GLARGINE Inac tive SUCRALFATE 1 GM TABS 1 four times a day to coat the stomach 2015 SUCRALFATE 1 GM TABS 896671 SUCRALFATE Inactive Immunizations Vaccine Administration Date Value Standard Floyd cription pneumococcal immunization administered Pneumovax 23 [CVX33] pneumococcal polysaccharide vaccine, 23 valent Seasonal influenza vaccine, injectable, containing preservative, for > 3 years old (Afluria, FluLaval, Fluzone, Fluvirin, Fluarix, Agriflu(>= 18 yo)) Fluzone (>3 yrs.) [QMW284] Influenza, seasonal, inject able Seasonal influenza vaccine, injectable, containing preservative, for > 3 years old (Afluria, FluLaval, Fluzone, Fluvirin, Fluarix, Agriflu(>= 18 yo)) Fluzone (>3 yrs.) [IOY207] Influenza, seasonal, inject able Vital Signs Date [...] C - Chemistry sodium, serum 143 mmol/L 859-935 2059/06/19 potassium, serum 5.9 mmol/L 3.5-5.2 chloride, serum [...] Panel - Chemistry sodium, serum 143 mmol/L 456-010 2969/12/19 carbon dioxide, venous blood 32.5 mmol/L 21.0-32 .0 potassium, serum 4.9 mmol/L 3.5-5.2 chloride, serum 101 mmol/L 98-107 blood glucose 129 mg/dL 65-110 urea nitrogen, blood 18 mg/dL 7-18 creatinine, serum 1.79 mg/dL 0.55-1.30 alanine aminotransferase (SGPT), serum 34 U/L 12-78 aspartate aminotransferase (SGOT), serum 26 U/L 15-37 calcium, serum 8.9 mg/dL 8.5-10.1 bilirubin, serum, total 0.30 mg/dL 0.00-1.00 cholesterol, serum 214 mg/dL 357-085 1291/12/19 triglyceride, serum, fasting 351 mg/dL 30-200 HDL [...] 4.9 mmol/L 3.5-5.2 sodium, serum 141 mmol/L 320-801 9619/08/08 blood glucose 193 mg/dL 65-110 urea nitrogen, blood 30 mg/dL 7-18 calcium, serum 9.8 mg/dL 8.5-10.1 Encounters Code Encounter Date Provider Facility CPT-73704 Level 4 Est. Patient 14:22:31 CDT Baltazar Childers MD [facility] CPT-57197 Level 4 Est. Patient 15:44:38 CDT Shonna Parker APRN [facility] CPT-41911 Level 4 Est. Patient 11:34:17 CDT Baltazar Childers MD [facility] CPT-80948 Level 3 Est. Patient 16:40:40 CDT Baltazar Childers MD [facility] CPT-89146 Level 4 Est. Patient 10:41:24 CDT Baltazar Childers MD [facility] CPT-38700 Level 4 Est. Patient 16:01:48 CDT Baltazar Childers MD [facility] CPT-81316 Level 4 Est. 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 Patient 15:42:12 CDT Baltazar Childers MD [facility] CPT-44904 Level 4 Est. Patient 11:29:55 CDT Baltazar Childers MD [facility] CPT-73971 Level 4 Est. Patient 14:15:19 CDT Baltazar Childers MD [facility] CPT-34818 Level 4 Est. Patient 12:20:13 CDT Baltazar Childers MD [facility] CPT-96614 Level 4 Est. 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 Patient 14:18:34 PLANT MAINTENANCE WORKER Baltazar Childers MD [facility] CPT-44344 Level 4 Est. Patient 15:18:29 CDT Baltazar Childers MD [facility] CPT-47473 Level 3 Est. Patient 12:45:34 CDT Baltazar Childers MD [facility] CPT-33110 Level 3 Est. Patient 10:10:11 CDT Baltazar Childers MD [facility] CPT-13966 Level 3 Est. Patient 14:07:50 CDT Baltazar Childers MD [facility] CPT-21535 Level 4 Est. 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 Patient 14:45:38 CDT Baltazar Childers MD [facility] CPT-58449 Level 4 New Patient 12:30:48 CDT Baltazar hinton MD [facility] Procedures Code Procedure Name Date Entry Date Standard Desc ription CPT-51499 Lipid - LAB USE ONLY 17:39:15 PLANT MAINTENANCE WORKER 9 CPT-88818 HGBA1C - LAB USE ONLY 17:39:15 PLANT MAINTENANCE WORKER CPT-81091 CMP - LAB USE ONLY 17:39:14 PLANT MAINTENANCE WORKER CPT-46705 Venipuncture Draw Fee 17:39:14 PLANT MAINTENANCE WORKER CPT-70385 First Vx - Ix admin via ID I M or jet injects without counseling by physician 16:55:17 PLANT MAINTENANCE WORKER CPT-68226 Fluzone Quadrivalent Intramuscular Suspe nsion 0.5 ML 16:55:17 PLANT MAINTENANCE WORKER CPT-18314 Renal Panel - LAB USE ONLY 17:39:20 CDT 201 10/31/07 CPT-73123 CBC - LAB USE ONLY 17:39:20 CDT CPT-00865 Venipuncture Draw Fee 17:39:20 CDT CPT-65378 Venipuncture Draw Fee 14:33:30 CDT CPT-80491 Renal Panel - LAB USE ONLY 14:33:30 CDT 201 10/31/07 CPT-53820 CBC - LAB USE ONLY 14:33:29 CDT CPT-96420 Venipuncture Draw Fee 14:50:21 PLANT MAINTENANCE WORKER CPT-45314 Immunization Single Admin 17:35:35 CDT 2014 CPT-85552 Fluzone Quadrivalent preservative free ( >=3yrs.) 17:35:35 CDT CPT-75872 Venipuncture Draw Fee 12:10:27 PLANT MAINTENANCE WORKER CPT-93259 Fluzone Quadrivalent Intramuscular Suspe nsion 0.5 ML 10:49:13 CDT CPT-81698 First Vx Component - Ix admi n via ID IM or jet inj without physician counseling 15:17:19 PLANT MAINTENANCE WORKER CPT-51364 Pneumovax 23 15:17:19 PLANT MAINTENANCE WORKER CPT-36378 Pneumovax 14:52:45 PLANT MAINTENANCE WORKER CPT-00376 Venipuncture Draw Fee 14:06:30 PLANT MAINTENANCE WORKER CPT-000 Give Appropriate Flu Vaccine 14:18:34 PLANT MAINTENANCE WORKER 2 CPT-84044 Administration single or combination vac cine inc oral 14:46:00 PLANT MAINTENANCE WORKER CPT-94146 Influenza split virus > age 3 14:46:00 PLANT MAINTENANCE WORKER CPT-OV Office Visit 19:13:16 CDT CPT-74613 Zostavax 18:41:56 CDT CPT-87174 Administration single or combination vac cine inc oral 12:56:39 CDT CPT-44455 Zoster Vaccine (Zostavax) 12:56:39 CDT 2012 CPT-31004 Venipuncture Draw Fee 10:58:57 CDT CPT-72569 Sono pelvis non OB uterus ovaries cervix 17:45:04 CDT CPT-83115 Sono retroperitoneal complete kidneys an d bladder 17:14:36 CDT CPT-OV Office Visit 14:59:38 PLANT MAINTENANCE WORKER CPT-J1070 Depo Testosterone 100 mg 14:50:13 CDT 03/05 CPT-85923 Abx/Therapy Injection 14:50:13 CDT CPT-27982 Administration single or combination vac cine inc oral 14:34:43 CDT CPT-13824 Influenza split virus > age 3 14:34:43 CDT CPT-J1070 Depo Testosterone 100 mg 17:37:13 CDT 01/11 CPT-56716 Abx/Therapy Injection 17:37:13 CDT CPT-32766 Venipuncture Draw Fee 16:30:13 CDT CPT-89611 Venipuncture Draw Fee 16:29:43 CDT CPT-J1070 Depo Testosterone 100 mg 14:45:38 CDT 01/11
--- OUTSIDE RECORDS SUMMARY | 2019-10-27 12:56 | XMS REPORT | Clinical Summary ---
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 Thomas FIELD SERVICE ANALYST Benign neoplasm of colon PERIPHERAL NEUROPATHY 356.9 Active Baltazar Nickerson MD Unspecified hereditary and idiopathic peripheral neuropathy PERSONAL HISTORY OF COLONIC POLYPS V12.72 Active 2 Lolis Thomas FIELD SERVICE ANALYST Personal history of colonic polyps PARESTHESIA, HANDS [...] three times a day 201 12/03/26 GABAPENTIN 30391397066 No Longer Active Baltazar Childers MD Activ e LISINOPRIL 20 MG ORAL TABLET 1 tablet by mouth daily at night 2016 LISINOPRIL 70096149690 Active Baltazar Childers MD Active ZITHROMAX Z-ISAIAS 250 MG ORAL TABLET Take two tablets to day and then 1 tablet daily for 4 days AZITHROMYCIN 34961874664 No Longer A ctive Baltazar Childers MD Active LANTUS SOLOSTAR 100 UNIT/ML SUBCUTANEOUS SOLUTION PEN- INJECTOR 30 units SC daily INSULIN GLARGINE 86889995409 Active Baltazar Childers MD Active AMLODIPINE BESYLATE 5 MG ORAL TABLET 1 tab daily for HTN AMLODIPINE BESYLATE 16792613983 Active KENDALL Juarez Active SYNTHROID 100 MCG ORAL TABLET 1 tablet by mouth daily LEVOTHYROXINE SODIUM 29162806010 Active Baltazar Childers MD Active GLIPIZIDE 10 MG ORAL TABLET take 2 tablets twice daily GLIPIZIDE 96644538121 Active Baltazar Childers MD Active SUCRALFATE 1 GM ORAL TABLET 1 four times a day to coat the stoma ch SUCRALFATE 84889846367 No Longer Active Baltazar Childers MD Active PEN NEEDLES 31G X 6 MM use 1 daily INSULIN PEN NE EDLE 17168159791 Active KENDALL Juarez Active TOUJEO SOLOSTAR 300 UNIT/ML SUBCUTANEOUS SOLUTION PEN- INJECTOR 10 units SC daily INSULIN GLARGINE 49232729402 No Longer Active Rola ARGUETA Active NAPROXEN SODIUM 220 MG ORAL TABLET 1 three times a day as needed NAPROXEN SODIUM 46649679734 No Longer Active Baltazar Childers MD Active ATORVASTATIN CALCIUM 20 MG ORAL TABLET Take 1 tab daily ATORVASTATIN CALCIUM 39561875474 Active Baltazar Childers MD A ctive FUROSEMIDE 40 MG ORAL TABLET Take one by mouth daily FUROSEMIDE 21729878406 Active Baltazar Childers MD Active LISINOPRIL 20 MG ORAL TABLET Take one by mouth daily at bedtime LISINOPRIL 13264410508 No Longer Active Baltazar Childers MD Active ONETOUCH ULTRA BLUE IN VITRO STRIP Test twice a day 20 07/11/11 GLUCOSE BLOOD 11245553085 No Longer Active Baltazar Childers MD Acti ve TRUEPLUS LANCETS 33G Test twice a day LANCETS 4255003 3545 Active KENDALL Juarez Active TRUEDRAW LANCING DEVICE Test twice a day LANCET DEVICES 97150634557 Active Baltazar Childers MD Active TRUETRACK TEST IN VITRO STRIP Test twice a day GLUCOSE BLOOD 39209501316 Active KENDALL Juarez Active TRUETRACK BLOOD GLUCOSE w/Device KIT Test twice a day BLOOD GLUCOSE MONITORING SUPPL 60537743009 Active Baltazar Childers MD Activ e HYDROCODONE-ACETAMINOPHEN 7.5-325 MG ORAL TABLET Take 1 tab every 6-8 hours PRN HYDROCODONE-ACETAMINOPHEN 12962476076 Active Baltazar Nickerson MD Active NORTRIPTYLINE HCL 50 MG ORAL CAPSULE 1 every night for neuropathy 2 NORTRIPTYLINE HCL 49464675740 Active Baltazar Childers MD Acti ve GABAPENTIN 300 MG ORAL CAPSULE 1 po qd x 2 days, then 1 po BID x 2 days, then 1 po TID GABAPENTIN 00010374297 No Longer Active Baltazar Childers MD Active TRAMADOL HCL 50 MG ORAL TABLET 1 twice a day as needed for pain 201 07/27/28 TRAMADOL HCL 57649110467 Active Baltazar Childers MD Active NAPROXEN 500 MG ORAL TABLET 1 tablet by mouth twice daily NAPROXEN 51975712496 No Longer Active Baltazar Childers MD Active PROAIR HFA 108 (90 Base) MCG/ACT INHALATION AEROSOL SO LUTION 2 puffs four times a day as needed ALBUTEROL SULFATE 70251541523 Active KENDALL Bowie Active DEPO-TESTOSTERONE 200 MG/ML INTRAMUSCULAR SOLUTION as directed TESTOSTERONE CYPIONATE 71251145448 No Longer Active Baltazar Childers MD Active LIPITOR 20 MG ORAL TABLET Take one by mouth daily in evening ATORVASTATIN CALCIUM 60902918926 No Longer Active Baltazar Childers MD Active CRESTOR 10 MG ORAL TABLET 1 by mouth every day ROSUVASTATIN CALCIUM 32188986641 No Longer Active Baltazar Childers MD Active PHENTERMINE HCL 37.5 MG ORAL TABLET Take one by mouth daily PHENTERMINE HCL 43561837247 No Longer Active Baltazar Childers MD Ac tive ROBAXIN-750 750 MG ORAL TABLET Take one by mouth daily METHOCARBAMOL 54120903272 Active KENDALL Juarez Active TIZANIDINE HCL 4 MG ORAL TABLET 1 daily as needed for muscle spa sm TIZANIDINE HCL 16855177250 No Longer Active Dawna Salazar RN Active [id number]-[id number] 50-325-40 MG ORAL TABLET 1 fo ur times a day as needed for heacache [id number]-[id number] 75715251959 Active Baltazar Childers MD Active SUMATRIPTAN SUCCINATE 100 MG ORAL TABLET 1 tablet by m outh at onset of migraine as needed SUMATRIPTAN SUCCINATE 38838566407 Active KENDALL Restrepo Active LORATADINE 10 MG ORAL TABLET Take one by mouth daily LORATADINE 19670737242 Active KENDALL Juarez Active OMEPRAZOLE 20 MG ORAL CAPSULE DELAYED RELEASE Take one by mouth jostin ly OMEPRAZOLE 50342975714 Active Baltazar Childers MD Active HYDROXYZINE HCL 25 MG ORAL TABLET Take one by mouth daily HYDROXYZINE HCL 46218953920 Active Baltazar Childers MD Active ALPRAZOLAM 1 MG ORAL TABLET 1 tablet by mouth daily at [facility] restless leg ALPRAZOLAM 18213782275 Active Baltazar Childers MD Active METFORMIN HCL 1000 MG ORAL TABLET Take one by mouth twice daily METFORMIN HCL 82872620536 Active Baltazar Childers MD Active TIZANIDINE HCL 4 MG ORAL TABLET 1 daily as needed for muscle spa sm TIZANIDINE HCL 4 MG ORAL TABLET 912458 TIZANIDINE HCL Inactive PHENTERMINE HCL 37.5 MG ORAL TABLET Take one by mouth daily PHENTERMINE HCL 37.5 MG ORAL TABLET 157784 PHENTERMINE HCL Inac tive CRESTOR 10 MG ORAL TABLET 1 by mouth every day CRESTOR 10 MG ORAL TABLET 064419 ROSUVASTATIN CALCIUM Inactive LIPITOR 20 MG ORAL TABLET Take one by mouth daily in evening LIPITOR 20 MG ORAL TABLET 337746 ATORVASTATIN CALCIUM Inactive DEPO-TESTOSTERONE 200 MG/ML INTRAMUSCULAR SOLUTION as directed DEPO-TESTOSTERONE 200 MG/ML INTRAMUSCULAR SOLUTION 711439 RUFINO TOSTERONE CYPIONATE Inactive NAPROXEN 500 MG ORAL TABLET 1 tablet by mouth twice daily NAPROXEN 500 MG ORAL TABLET 955461 NAPROXEN Inactive GABAPENTIN 300 MG ORAL CAPSULE 1 po qd x 2 days, then 1 po BID x 2 days, then 1 po TID GABAPENTIN 300 MG ORAL CAPSULE 224679 GABAP ENTIN Inactive ONETOUCH ULTRA BLUE IN VITRO STRIP Test twice a day 07/11/11 ONETOUCH ULTRA BLUE IN VITRO STRIP GLUCOSE BLOOD Inact amie NAPROXEN SODIUM 220 MG ORAL TABLET 1 three times a day as needed NAPROXEN SODIUM 220 MG ORAL TABLET 577670 NAPROXEN SODI UM Inactive TOUJEO SOLOSTAR 300 UNIT/ML SUBCUTANEOUS SOLUTION PEN- INJECTOR 10 units SC daily TOUJEO SOLOSTAR 300 UNIT/ML SUBCUTANEOUS SOLUTION PEN-INJECTOR INSULIN GLARGINE Inactive SUCRALFATE 1 GM ORAL TABLET 1 four times a day to coat the stoma ch SUCRALFATE 1 GM ORAL TABLET 494510 SUCRALFATE Inac tive GABAPENTIN 300 MG ORAL CAPSULE 1 three times a day 201 12/03/26 GABAPENTIN 300 MG ORAL CAPSULE 231622 GABAPENTIN Inactive ZITHROMAX Z-ISAIAS 250 MG ORAL TABLET Take two tablets to day and then 1 tablet daily for 4 days ZITHROMAX Z-ISAIAS 250 MG ORAL TAB LET 594601 AZITHROMYCIN Inactive Immunizations Vaccine Administration Date Value Standard Floyd cription pneumococcal immunization administered Pneumovax 23 [CVX33] pneumococcal polysaccharide vaccine, 23 valent Seasonal influenza vaccine, injectable, containing preservative, for > 3 years old (Afluria, FluLaval, Fluzone, Fluvirin, Fluarix, Agriflu(>= 18 yo)) Fluzone (>3 yrs.) [VMO629] Influenza, seasonal, inject able Seasonal influenza vaccine, injectable, containing preservative, for > 3 years old (Afluria, FluLaval, Fluzone, Fluvirin, Fluarix, Agriflu(>= 18 yo)) Fluzone (>3 yrs.) [NVA869] Influenza, seasonal, inject able Vital Signs Date [...] - Chem istry sodium, serum 139 mmol/L 056-013 6272/10/03 potassium, serum 4.7 mmol/L 3.5-5.2 chloride, serum 98 mmol/L 98-107 carbon dioxide, venous blood 28.7 mmol/L 21.0-32 .0 blood glucose 218 mg/dL 65-110 calcium, serum 9.8 mg/dL 8.5-10.1 urea nitrogen, blood 19 mg/dL 7-18 creatinine, serum 1.68 mg/dL 0.60-1.30 Lab Report: CBC, Renal Panel - Chemistry sodium, serum 142 mmol/L 784-707 9889/08/11 potassium, serum 4.8 mmol/L 3.5-5.2 chloride, serum [...] (L) - Chemistry cholesterol, serum 209 mg/dL 406-695 9068/12/27 triglyceride, serum, fasting 329 mg/dL 30-200 HDL cholesterol, serum 56 mg/dL 32-60 LDL cholesterol, serum 87 mg/dL 0-130 TSH 3.60 m[iU]/mL 0.36-3.74 Encounters Code Encounter Date Provider Facility CPT-33921 Level 4 Est. Patient 17:05:37 CDT Baltaazr Childers MD [facility] CPT-35414 Level 4 Est. Patient 16:21:19 GRITTING MACHINE OPERATOR Baltazar Childers MD [facility] CPT-64466 Level 4 Est. Patient 12:25:11 CDT Baltazar Childers MD [facility] CPT-08369 Level 4 Est. Patient 14:22:31 CDT Baltazar Childers MD [facility] CPT-23540 Level 4 Est. Patient 15:44:38 CDT [facility] CPT-50439 Level 4 Est. Patient 11:34:17 CDT Baltazar Childers MD [facility] CPT-75965 Level 3 Est. Patient 16:40:40 CDT Baltazar Childers MD [facility] CPT-78612 Level 4 Est. Patient 10:41:24 CDT Baltazar Childers MD [facility] CPT-01114 Level 4 Est. Patient 16:01:48 CDT Baltazar Childers MD [facility] CPT-80242 Level 4 Est. Patient 16:54:07 GRITTING MACHINE OPERATOR Baltazar Childers MD [facility] CPT-70337 Level 4 Est. Patient 15:42:12 CDT Baltazar Childers MD [facility] CPT-73172 Level 4 Est. Patient 11:29:55 CDT Baltazar Childers MD [facility] CPT-72882 Level 4 Est. Patient 14:15:19 CDT Baltazar Childers MD [facility] CPT-09960 Level 4 Est. Patient 12:20:13 CDT Baltazar Childers MD [facility] CPT-56173 Level 4 Est. Patient 14:52:45 GRITTING MACHINE OPERATOR Baltazar Childers MD [facility] CPT-09094 Level 4 Est. Patient 14:18:34 GRITTING MACHINE OPERATOR Baltazar Childers MD [facility] CPT-87533 Level 4 Est. Patient 15:18:29 CDT Baltazar Childers MD [facility] CPT-52587 Level 3 Est. Patient 12:45:34 CDT Baltazar Childers MD [facility] CPT-34684 Level 3 Est. Patient 10:10:11 CDT Baltazar Childers MD [facility] CPT-14278 Level 3 Est. Patient 14:07:50 CDT Baltazar Childers MD [facility] CPT-26831 Level 4 Est. Patient 12:26:10 GRITTING MACHINE OPERATOR Baltazar Childers MD [facility] CPT-95763 Level 4 Est. Patient 14:45:38 CDT Baltazar Childers MD [facility] CPT-75461 Level 4 New Patient 12:30:48 CDT Baltazar hinton MD [facility] Procedures Code Procedure Name Date Entry Date Standard Desc ription CPT-000 Give Appropriate Flu Vaccine 12:25:14 CDT 2 CPT-05246 First Vx - Ix admin via ID I M or jet injects without counseling by physician 13:08:59 CDT CPT-37691 Fluzone Quadrivalent Intramuscular Suspe nsion 0.5 ML 13:08:59 CDT CPT-42164 Venipuncture Draw Fee 12:04:12 CDT CPT-14441 Lipid - LAB USE ONLY 17:39:15 GRITTING MACHINE OPERATOR 9 CPT-28482 HGBA1C - LAB USE ONLY 17:39:15 GRITTING MACHINE OPERATOR CPT-76291 CMP - LAB USE ONLY 17:39:14 GRITTING MACHINE OPERATOR CPT-60371 Venipuncture Draw Fee 17:39:14 GRITTING MACHINE OPERATOR CPT-91623 First Vx - Ix admin via ID I M or jet injects without counseling by physician 16:55:17 GRITTING MACHINE OPERATOR CPT-15857 Fluzone Quadrivalent Intramuscular Suspe nsion 0.5 ML 16:55:17 GRITTING MACHINE OPERATOR CPT-11105 Renal Panel - LAB USE ONLY 17:39:20 CDT 201 10/31/07 CPT-84262 CBC - LAB USE ONLY 17:39:20 CDT CPT-83270 Venipuncture Draw Fee 17:39:20 CDT CPT-39894 Venipuncture Draw Fee 14:33:30 CDT CPT-15220 Renal Panel - LAB USE ONLY 14:33:30 CDT 201 10/31/07 CPT-28473 CBC - LAB USE ONLY 14:33:29 CDT CPT-61875 Venipuncture Draw Fee 14:50:21 GRITTING MACHINE OPERATOR CPT-46879 Immunization Single Admin 17:35:35 CDT 2014 CPT-11812 Fluzone Quadrivalent preservative free ( >=3yrs.) 17:35:35 CDT CPT-38104 Venipuncture Draw Fee 12:10:27 GRITTING MACHINE OPERATOR CPT-73351 Fluzone Quadrivalent Intramuscular Suspe nsion 0.5 ML 10:49:13 CDT CPT-40523 First Vx Component - Ix admi n via ID IM or jet inj without physician counseling 15:17:19 GRITTING MACHINE OPERATOR CPT-36356 Pneumovax 23 15:17:19 GRITTING MACHINE OPERATOR CPT-14960 Pneumovax 14:52:45 GRITTING MACHINE OPERATOR CPT-99176 Venipuncture Draw Fee 14:06:30 GRITTING MACHINE OPERATOR CPT-000 Give Appropriate Flu Vaccine 14:18:34 GRITTING MACHINE OPERATOR 2 CPT-12605 Administration single or combination vac cine inc oral 14:46:00 GRITTING MACHINE OPERATOR CPT-27996 Influenza split virus > age 3 14:46:00 GRITTING MACHINE OPERATOR CPT-OV Office Visit 19:13:16 CDT CPT-89526 Zostavax 18:41:56 CDT CPT-37633 Administration single or combination vac cine inc oral 12:56:39 CDT CPT-09212 Zoster Vaccine (Zostavax) 12:56:39 CDT 2012 CPT-52251 Venipuncture Draw Fee 10:58:57 CDT CPT-55043 Sono pelvis non OB uterus ovaries cervix 17:45:04 CDT CPT-02060 Sono retroperitoneal complete kidneys an d bladder 17:14:36 CDT CPT-OV Office Visit 14:59:38 GRITTING MACHINE OPERATOR CPT-J1070 Depo Testosterone 100 mg 14:50:13 CDT 03/05 CPT-80775 Abx/Therapy Injection 14:50:13 CDT CPT-52922 Administration single or combination vac cine inc oral 14:34:43 CDT CPT-45196 Influenza split virus > age 3 14:34:43 CDT CPT-J1070 Depo Testosterone 100 mg 17:37:13 CDT 01/11 CPT-88038 Abx/Therapy Injection 17:37:13 CDT CPT-44413 Venipuncture Draw Fee 16:30:13 CDT CPT-94535 Venipuncture Draw Fee 16:29:43 CDT CPT-J1070 Depo Testosterone 100 mg 14:45:38 CDT 01/11
--- OUTSIDE RECORDS SUMMARY | 2019-10-27 12:57 | XMS REPORT | Clinical Summary ---
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 Benign neoplasm of colon PERIPHERAL NEUROPATHY [...] RAD&OTH EXM BODY STRUCTURE 793.99 11/08 Active eJssy Ruiz Other nonspecific (a bnormal) findings on [...] II,controlled w/neurologic complications 250 .60 Active Baltazar Cihlders MD Diabetes mellitus wi th neurological manifestations, [...] 1 tab daily for HTN AMLODIPINE BESYLATE 31611989408 Active KENDALL Juarez Active SYNTHROID 0.1 MG TAB 1 tablet by mouth daily LE VOTHYROXINE SODIUM 03176596203 Active Shonna Parker APRN Active GLIPIZIDE 10 MG TAB take 2 tablets twice daily GLIPIZIDE 50602105272 Active Baltazar Childers MD Active SUCRALFATE 1 GM TABS 1 four times a day to coat the stomach 2015 SUCRALFATE 50564948196 No Longer Active Baltazar Childers MD Active PEN NEEDLES 31G X 6 MM MISC use 1 daily INSULIN PEN NEEDLE 99445271674 Active Gato Rae MD Active TOUJEO SOLOSTAR 300 UNIT/ML SC SOPN 10 units SC daily INSULIN GLARGINE 98538903787 No Longer Active Martita Herbert ARGUETA Active LANTUS SOLOSTAR 100 UNIT/ML SC SOPN 10 units SC daily INSULIN GLARGINE 27531742839 Active KENDALL Juarez Active NAPROXEN SODIUM 220 MG ORAL TABS 1 three times a day as needed 2 NAPROXEN SODIUM 50216691002 No Longer Active Baltazar Childers MD Active ATORVASTATIN CALCIUM 20 MG ORAL TABS Take 1 tab daily ATORVASTATIN CALCIUM 14433058988 Active Baltazar Childers MD Active FUROSEMIDE 40 MG TABS Take one by mouth daily FUROSEMIDE 62677678795 Active Baltazar Childers MD Active LISINOPRIL 20 MG TABS Take one by mouth daily at bedtime LISINOPRIL 45106403550 No Longer Active Baltazar Childers MD Active ONETOUCH ULTRA BLUE STRP Test twice a day GLUCO SE BLOOD 04279982237 No Longer Active Baltazar Childers MD Active TRUEPLUS LANCETS 33G MISC Test twice a day LANCET S 88766800117 Active KENDALL Juarez Active TRUEDRAW LANCING DEVICE MISC Test twice a day L ANCET DEVICES 13283418951 Active Baltazar Childers MD Active TRUETRACK TEST STRP Test twice a day GLUCOSE BLOO D 32541775657 Active KENDALL Juarez Active TRUETRACK BLOOD GLUCOSE W/DEVICE KIT Test twice a day BLOOD GLUCOSE MONITORING SUPPL 43008168687 Active Baltazar Childers MD Activ e HYDROCODONE-ACETAMINOPHEN 7.5-325 MG TABS Take 1 tab every 6-8 hour s PRN HYDROCODONE-ACETAMINOPHEN 47709846648 Active Baltazar Childers MD Active NORTRIPTYLINE HCL 50 MG CAPS 1 every night for neuropathy 4 NORTRIPTYLINE HCL 59584744953 Active Baltazar Childers MD Acti ve GABAPENTIN 300 MG CAPS 1 three times a day GABAPE NTIN 61711091655 Active Baltazar Childers MD Active GABAPENTIN 300 MG CAPS 1 po qd x 2 days, then 1 po BID x 2 d ays, then 1 po TID GABAPENTIN 99465958966 No Longer Active Baltazar silverman MD Active TRAMADOL HCL 50 MG TABS 1 twice a day as needed for pain TRAMADOL HCL 95750462520 Active Baltazar Childers MD Active NAPROXEN 500 MG TABS 1 tablet by mouth twice daily NAPROXEN 82749840344 No Longer Active Baltazar Childers MD Active PROAIR HFA 108 (90 BASE) MCG/ACT AERS 2 puffs four times a d ay as needed ALBUTEROL SULFATE 21098376077 Active Baltazar Childers MD Active DEPO-TESTOSTERONE 200 MG/ML OIL as directed RUFINO TOSTERONE CYPIONATE 06457712123 No Longer Active Baltazar Childers MD Active LIPITOR 20 MG TABS Take one by mouth daily in evening ATORVASTATIN CALCIUM 14420292927 No Longer Active Baltazar Childers MD Activ e CRESTOR 10 MG TABS 1 by mouth every day R OSUVASTATIN CALCIUM 27474855217 No Longer Active Baltazar Childers MD Activ e PHENTERMINE HCL 37.5 MG TABS Take one by mouth daily 2 PHENTERMINE HCL 61259481958 No Longer Active Baltazar Childers MD Activ e ROBAXIN-750 750 MG TABS Take one by mouth daily ME THOCARBAMOL 91169939251 Active Baltazar Childers MD Active TIZANIDINE HCL 4 MG TABS 1 daily as needed for muscle spasm 2011 TIZANIDINE HCL 61834613627 No Longer Active Dawna Salazar RN Active [id number]-[id number]-UGSOPLXM 50-325-40 MG TABS 1 four time s a day as needed for heacache JHVMOBRREG-CPCJ-DVOLIMHY 43852265335 Active KENDALL Juarez Active SUMATRIPTAN SUCCINATE 100 MG TABS 1 tablet by mouth at onset of migraine as needed SUMATRIPTAN SUCCINATE 43182426408 Active KENDALL Juarez Active LORATADINE 10 MG TABS Take one by mouth daily LORATADINE 99818031041 Active KENDALL Juarez Active OMEPRAZOLE 20 MG CPDR Take one by mouth daily OMEPRAZOLE 43120039230 Active Baltazar Childers MD Active HYDROXYZINE HCL 25 MG TABS Take one by mouth daily HYDROXYZINE HCL 40685156396 Active Baltazar Childers MD Active ALPRAZOLAM 1 MG TABS 1 tablet by mouth daily at bedtime for restles s leg ALPRAZOLAM 88411463123 Active Baltazar Childers MD Active METFORMIN HCL 1000 MG TABS Take one by mouth twice daily METFORMIN HCL 52600443334 Active Baltazar Childers MD Active TIZANIDINE HCL 4 MG TABS 1 daily as needed for muscle spasm 2011 TIZANIDINE HCL 4 MG TABS 074881 TIZANIDINE HCL Inactiv e PHENTERMINE HCL 37.5 MG TABS Take one by mouth daily 2 PHENTERMINE HCL 37.5 MG TABS 609300 PHENTERMINE HCL Inactive CRESTOR 10 MG TABS 1 by mouth every day C RESTOR 10 MG TABS 761932 ROSUVASTATIN CALCIUM Inactive LIPITOR 20 MG TABS Take one by mouth daily in evening LIPITOR 20 MG TABS 198478 ATORVASTATIN CALCIUM Inactive DEPO-TESTOSTERONE 200 MG/ML OIL as directed 8 DEPO-TESTOSTERONE 200 MG/ML OIL 860481 TESTOSTERONE CYPIONATE Inactive NAPROXEN 500 MG TABS 1 tablet by mouth twice daily 201 07/27/22 NAPROXEN 500 MG TABS 170706 NAPROXEN Inactive GABAPENTIN 300 MG CAPS 1 po qd x 2 days, then 1 po BID x 2 d ays, then 1 po TID GABAPENTIN 300 MG CAPS 597061 GABAPENTIN Inact amie ONETOUCH ULTRA BLUE STRP Test twice a day ONETOUCH ULTRA BLUE STRP GLUCOSE BLOOD Inactive NAPROXEN SODIUM 220 MG ORAL TABS 1 three times a day as needed 2 NAPROXEN SODIUM 220 MG ORAL TABS 345094 NAPROXEN SODIUM Inactive TOUJEO SOLOSTAR 300 UNIT/ML SC SOPN 10 units SC daily TOUJEO SOLOSTAR 300 UNIT/ML SC SOPN INSULIN GLARGINE Inac tive SUCRALFATE 1 GM TABS 1 four times a day to coat the stomach 2015 SUCRALFATE 1 GM TABS 775711 SUCRALFATE Inactive Immunizations Vaccine Administration Date Value Standard Floyd cription pneumococcal immunization administered Pneumovax 23 [CVX33] pneumococcal polysaccharide vaccine, 23 valent Seasonal influenza vaccine, injectable, containing preservative, for > 3 years old (Afluria, FluLaval, Fluzone, Fluvirin, Fluarix, Agriflu(>= 18 yo)) Fluzone (>3 yrs.) [[id number]] Influenza, seasonal, inject able Seasonal influenza vaccine, injectable, containing preservative, for > 3 years old (Afluria, FluLaval, Fluzone, Fluvirin, Fluarix, Agriflu(>= 18 yo)) Fluzone (>3 yrs.) [[id number]] Influenza, seasonal, inject able Vital Signs Date [...] C - Chemistry sodium, serum 143 mmol/L 096-858 3380/06/19 potassium, serum 5.9 mmol/L 3.5-5.2 chloride, serum 105 mmol/L 98-107 carbon dioxide, venous blood 30.2 mmol/L 21.0-32 .0 blood glucose 189 mg/dL 65-110 calcium, serum 9.7 mg/dL 8.5-10.1 urea nitrogen, blood 37 mg/dL 7-18 creatinine, serum 2.11 mg/dL 0.55-1.30 hemoglobin A1C, blood, as % of total hemoglobin 8.2 % 4.3-6.0 Lab Report: CBC, Renal Panel - Chemistry sodium, serum 142 mmol/L 071-455 5098/08/11 potassium, serum 4.8 mmol/L 3.5-5.2 chloride, serum [...] Panel - Chemistry sodium, serum 143 mmol/L 848-006 8108/12/19 carbon dioxide, venous blood 32.5 mmol/L 21.0-32 .0 potassium, serum 4.9 mmol/L 3.5-5.2 chloride, serum 101 mmol/L 98-107 blood glucose 129 mg/dL 65-110 urea nitrogen, blood 18 mg/dL 7-18 creatinine, serum 1.79 mg/dL 0.55-1.30 alanine aminotransferase (SGPT), serum 34 U/L 12-78 aspartate aminotransferase (SGOT), serum 26 U/L 15-37 calcium, serum 8.9 mg/dL 8.5-10.1 bilirubin, serum, total 0.30 mg/dL 0.00-1.00 cholesterol, serum 214 mg/dL 779-419 5171/12/19 triglyceride, serum, fasting 351 mg/dL 30-200 HDL [...] 4.3-6.0 Encounters Code Encounter Date Provider Facility CPT-00149 Level 4 Est. Patient 14:22:31 CDT Baltazar Childers MD [facility] CPT-46539 Level 4 Est. Patient 15:44:38 [facility] Level 4 Est. Patient 11:34:17 CDT Baltazar Childers MD [facility] CPT-44081 Level 3 Est. Patient 16:40:40 CDT Baltazar Childers MD [facility] CPT-29176 Level 4 Est. Patient 10:41:24 CDT Baltazar Childers MD [facility] CPT-39000 Level 4 Est. Patient 16:01:48 CDT Baltazar Childers MD [facility] CPT-73961 Level 4 Est. Patient 16:54:07 SENIOR RECRUITMENT CONSULTANT Baltazar Childers MD [facility] CPT-73634 Level 4 Est. Patient 15:42:12 CDT Baltazar Childers MD [facility] CPT-73623 Level 4 Est. Patient 11:29:55 CDT Baltazar Childers MD [facility] CPT-34905 Level 4 Est. Patient 14:15:19 CDT Baltazar Childers MD [facility] CPT-03985 Level 4 Est. Patient 12:20:13 CDT Baltazar Childers MD [facility] CPT-18244 Level 4 Est. Patient 14:52:45 SENIOR RECRUITMENT CONSULTANT Baltazar Childers MD [facility] CPT-94952 Level 4 Est. Patient 14:18:34 SENIOR RECRUITMENT CONSULTANT Baltazar Childers MD [facility] CPT-21506 Level 4 Est. Patient 15:18:29 CDT Baltazar Childers MD [facility] CPT-61756 Level 3 Est. Patient 12:45:34 CDT Baltazar Childers MD [facility] CPT-59487 Level 3 Est. Patient 10:10:11 CDT Baltazar Childers MD [facility] CPT-62233 Level 3 Est. Patient 14:07:50 CDT Baltazar Childers MD [facility] CPT-97423 Level 4 Est. Patient 12:26:10 SENIOR RECRUITMENT CONSULTANT Baltazar Childers MD [facility] CPT-47588 Level 4 Est. Patient 14:45:38 CDT Baltazar Childers MD [facility] CPT-98379 Level 4 New Patient 12:30:48 CDT Baltazar hinton MD [facility] Procedures Code Procedure Name Date Entry Date Standard Desc ription CPT-22696 Venipuncture Draw Fee 12:04:12 CDT CPT-76948 Lipid - LAB USE ONLY 17:39:15 SENIOR RECRUITMENT CONSULTANT 9 CPT-22117 HGBA1C - LAB USE ONLY 17:39:15 SENIOR RECRUITMENT CONSULTANT CPT-43494 CMP - LAB USE ONLY 17:39:14 SENIOR RECRUITMENT CONSULTANT CPT-37383 Venipuncture Draw Fee 17:39:14 SENIOR RECRUITMENT CONSULTANT CPT-87480 First Vx - Ix admin via ID I M or jet injects without counseling by physician 16:55:17 SENIOR RECRUITMENT CONSULTANT CPT-56320 Fluzone Quadrivalent Intramuscular Suspe nsion 0.5 ML 16:55:17 SENIOR RECRUITMENT CONSULTANT CPT-86873 Renal Panel - LAB USE ONLY 17:39:20 CDT 201 10/31/07 CPT-56103 CBC - LAB USE ONLY 17:39:20 CDT CPT-20833 Venipuncture Draw Fee 17:39:20 CDT CPT-03297 Venipuncture Draw Fee 14:33:30 CDT CPT-82994 Renal Panel - LAB USE ONLY 14:33:30 CDT 201 10/31/07 CPT-74106 CBC - LAB USE ONLY 14:33:29 CDT CPT-21509 Venipuncture Draw Fee 14:50:21 SENIOR RECRUITMENT CONSULTANT CPT-11717 Immunization Single Admin 17:35:35 CDT 2014 CPT-99909 Fluzone Quadrivalent preservative free ( >=3yrs.) 17:35:35 CDT CPT-89524 Venipuncture Draw Fee 12:10:27 SENIOR RECRUITMENT CONSULTANT CPT-14407 Fluzone Quadrivalent Intramuscular Suspe nsion 0.5 ML 10:49:13 CDT CPT-86585 First Vx Component - Ix admi n via ID IM or jet inj without physician counseling 15:17:19 SENIOR RECRUITMENT CONSULTANT CPT-61596 Pneumovax 23 15:17:19 SENIOR RECRUITMENT CONSULTANT CPT-53219 Pneumovax 14:52:45 SENIOR RECRUITMENT CONSULTANT CPT-62514 Venipuncture Draw Fee 14:06:30 SENIOR RECRUITMENT CONSULTANT CPT-000 Give Appropriate Flu Vaccine 14:18:34 SENIOR RECRUITMENT CONSULTANT 2 CPT-46149 Administration single or combination vac cine inc oral 14:46:00 SENIOR RECRUITMENT CONSULTANT CPT-87032 Influenza split virus > age 3 14:46:00 SENIOR RECRUITMENT CONSULTANT CPT-OV Office Visit 19:13:16 CDT CPT-02546 Zostavax 18:41:56 CDT CPT-89099 Administration single or combination vac cine inc oral 12:56:39 CDT CPT-47592 Zoster Vaccine (Zostavax) 12:56:39 CDT 2012 CPT-36701 Venipuncture Draw Fee 10:58:57 CDT CPT-55828 Sono pelvis non OB uterus ovaries cervix 17:45:04 CDT CPT-19975 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
--- OUTSIDE RECORDS SUMMARY | 2019-10-27 12:57 | XMS REPORT | Clinical Summary ---
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 Benign neoplasm of colon PERIPHERAL NEUROPATHY [...] ronary atherosclerosis of unspecified type of vessel, [place] or graft OTH NONSPC ABN FINDNG RAD&OTH [...] care facility Chronic pain syndrome 338.4 Active Blatazar Nickerson MD Chronic pain syndrome Chronic kidney [...] MISC use 1 daily INSULIN PEN NEEDLE 69182835180 Active Martita Herbert RMA Active TOUJEO SOLOSTAR 300 UNIT/ML SC SOPN 10 units SC daily INSULIN GLARGINE 27103989133 No Longer Active Martita Herbert RMA Active LANTUS SOLOSTAR 100 UNIT/ML SC SOPN 10 units SC daily INSULIN GLARGINE 70510352813 Active Martita Herbert RMA Active NAPROXEN SODIUM 220 MG ORAL TABS 1 three times a day as needed 2 NAPROXEN SODIUM 15658454534 No Longer Active Baltazar Childers MD Active ATORVASTATIN CALCIUM 20 MG ORAL TABS Take 1 tab daily ATORVASTATIN CALCIUM 28500455459 Active KENDALL Juarez Active FUROSEMIDE 40 MG TABS Take one by mouth daily FUROSEMIDE 29188209497 Active Baltazar Childers MD Active LISINOPRIL 20 MG TABS Take one by mouth daily at bedtime LISINOPRIL 52001646714 Active Baltazar Childers MD Active ONETOUCH ULTRA BLUE STRP Test twice a day GLUCO SE BLOOD 23091274590 No Longer Active Baltazar Childers MD Active TRUEPLUS LANCETS 33G MISC Test twice a day LANCET S 18152824558 Active KENDALL Juarez Active TRUEDRAW LANCING DEVICE MISC Test twice a day L ANCET DEVICES 89687358543 Active Baltazar Childers MD Active TRUETRACK TEST STRP Test twice a day GLUCOSE BLOO D 90110077863 Active KENDALL Juarez Active TRUETRACK BLOOD GLUCOSE W/DEVICE KIT Test twice a day BLOOD GLUCOSE MONITORING SUPPL 10395528088 Active Baltazar Childers MD Activ e HYDROCODONE-ACETAMINOPHEN 7.5-325 MG TABS Take 1 tab every 6-8 hour s PRN HYDROCODONE-ACETAMINOPHEN 98427368564 Active Baltazar Childers MD Active NORTRIPTYLINE HCL 50 MG CAPS 1 every night for neuropathy 4 NORTRIPTYLINE HCL 92360796631 Active Baltazar Childers MD Acti ve GABAPENTIN 300 MG CAPS 1 three times a day GABAPE NTIN 06743598330 Active Baltazar Childers MD Active GABAPENTIN 300 MG CAPS 1 po qd x 2 days, then 1 po BID x 2 d ays, then 1 po TID GABAPENTIN 64750036296 No Longer Active Baltazar silverman MD Active TRAMADOL HCL 50 MG TABS 1 twice a day as needed for pain TRAMADOL HCL 42506667986 Active Baltazar Childers MD Active NAPROXEN 500 MG TABS 1 tablet by mouth twice daily NAPROXEN 89605040690 No Longer Active Baltazar Childers MD Active PROAIR HFA 108 (90 BASE) MCG/ACT AERS 2 puffs four times a d ay as needed ALBUTEROL SULFATE 37617473646 Active KENDALL Juarez Active DEPO-TESTOSTERONE 200 MG/ML OIL as directed RUFINO TOSTERONE CYPIONATE 17158351716 No Longer Active Baltazar Childers MD Active LIPITOR 20 MG TABS Take one by mouth daily in evening ATORVASTATIN CALCIUM 18042168550 No Longer Active Baltazar Childers MD Activ e CRESTOR 10 MG TABS 1 by mouth every day R OSUVASTATIN CALCIUM 04725406592 No Longer Active Baltazar Childers MD Activ e PHENTERMINE HCL 37.5 MG TABS Take one by mouth daily 2 PHENTERMINE HCL 79249814593 No Longer Active Baltazar Childers MD Activ e ROBAXIN-750 750 MG TABS Take one by mouth daily ME THOCARBAMOL 50028678451 Active Baltazar Childers MD Active TIZANIDINE HCL 4 MG TABS 1 daily as needed for muscle spasm 2011 TIZANIDINE HCL 53351412976 No Longer Active Dawna Salazar RN Active PQAXJTNCKE-LSGY-YPIZBZYV 50-325-40 MG TABS 1 four time s a day as needed for heacache MVJJORHQIV-ZMVC-HICVUWWS 06959067891 Active Baltazar Childers MD Active SUMATRIPTAN SUCCINATE 100 MG TABS 1 tablet by mouth at onset of migraine as needed SUMATRIPTAN SUCCINATE 65329879660 Active KENDALL Juarez Active LORATADINE 10 MG TABS Take one by mouth daily LORATADINE 24592507156 Active Baltazar Childers MD Active OMEPRAZOLE 20 MG CPDR Take one by mouth daily OMEPRAZOLE 47388976937 Active Argentina Fitzgeralder Active HYDROXYZINE HCL 25 MG TABS Take one by mouth daily HYDROXYZINE HCL 55400236318 Active Baltazar Childers MD Active GLIPIZIDE 10 MG TABS 1 tablet by mouth twice daily GLIPIZIDE 70657037902 Active Baltazar Childers MD Active ALPRAZOLAM 1 MG TABS 1 tablet by mouth daily at bedtime for restles s leg ALPRAZOLAM 48618245060 Active Baltazar Childers MD Active METFORMIN HCL 1000 MG TABS Take one by mouth twice daily METFORMIN HCL 73558973936 Active Baltazar Childers MD Active TIZANIDINE HCL 4 MG TABS 1 daily as needed for muscle spasm 2011 TIZANIDINE HCL 4 MG TABS 867150 TIZANIDINE HCL Inactiv e PHENTERMINE HCL 37.5 MG TABS Take one by mouth daily 2 PHENTERMINE HCL 37.5 MG TABS 416675 PHENTERMINE HCL Inactive CRESTOR 10 MG TABS 1 by mouth every day C RESTOR 10 MG TABS 405325 ROSUVASTATIN CALCIUM Inactive LIPITOR 20 MG TABS Take one by mouth daily in evening LIPITOR 20 MG TABS 931819 ATORVASTATIN CALCIUM Inactive DEPO-TESTOSTERONE 200 MG/ML OIL as directed 8 DEPO-TESTOSTERONE 200 MG/ML OIL 210423 TESTOSTERONE CYPIONATE Inactive NAPROXEN 500 MG TABS 1 tablet by mouth twice daily 201 07/27/22 NAPROXEN 500 MG TABS 303211 NAPROXEN Inactive GABAPENTIN 300 MG CAPS 1 po qd x 2 days, then 1 po BID x 2 d ays, then 1 po TID GABAPENTIN 300 MG CAPS 557937 GABAPENTIN Inact amie ONETOUCH ULTRA BLUE STRP Test twice a day ONETOUCH ULTRA BLUE STRP GLUCOSE BLOOD Inactive NAPROXEN SODIUM 220 MG ORAL TABS 1 three times a day as needed 2 NAPROXEN SODIUM 220 MG ORAL TABS 987262 NAPROXEN SODIUM Inactive TOUJEO SOLOSTAR 300 UNIT/ML [...] Fluarix, Agriflu(>= 18 yo)) Fluzone (>3 yrs.) [YQI874] Influenza, seasonal, inject able Seasonal influenza vaccine, injectable, containing preservative, for > 3 years old (Afluria, FluLaval, Fluzone, Fluvirin, Fluarix, Agriflu(>= 18 yo)) Fluzone (>3 yrs.) [[id number]] Influenza, seasonal, inject able Vital Signs Date [...] C - Chemistry sodium, serum 139 mmol/L 404-382 9137/07/07 potassium, serum 4.5 mmol/L 3.5-5.2 chloride, serum [...] 7.9 % 4.3-6.0 sodium, serum 139 mmol/L 875-720 0196/02/04 potassium, serum 5.4 mmol/L 3.5-5.2 chloride, serum [...] Panel - Chemistry sodium, serum 138 mmol/L 331-867 6019/11/23 carbon dioxide, venous blood 32.4 mmol/L 21.0-32 .0 potassium, serum 5.7 mmol/L 3.5-5.2 chloride, serum 98 mmol/L 98-107 blood glucose 136 mg/dL 65-110 urea nitrogen, blood 18 mg/dL 7-18 creatinine, serum 1.71 mg/dL 0.55-1.30 alanine aminotransferase (SGPT), serum 71 U/L 12-78 aspartate aminotransferase (SGOT), serum 34 U/L 15-37 calcium, serum 9.4 mg/dL 8.5-10.1 bilirubin, serum, total 0.40 mg/dL 0.00-1.00 cholesterol, serum 405 mg/dL 167-868 3224/11/23 triglyceride, serum, fasting 709 mg/dL 30-200 HDL [...] mg/dL Encounters Code Encounter Date Provider Facility CPT-84119 Level 3 Est. Patient 16:40:40 CDT Baltazar Childers MD [facility] CPT-29981 Level 4 Est. Patient 10:41:24 CDT Baltazar Childers MD [facility] CPT-38970 Level 4 Est. Patient 16:01:48 CDT Baltazar Childers MD [facility] CPT-96201 Level 4 Est. Patient 16:54:07 [employer] Baltazar Childers MD [facility] CPT-90651 Level 4 Est. Patient 15:42:12 CDT Baltazar Childers MD [facility] CPT-96680 Level 4 Est. Patient 11:29:55 CDT Baltazar Childers MD [facility] CPT-26726 Level 4 Est. Patient 14:15:19 CDT Baltazar Childers MD [facility] CPT-64199 Level 4 Est. Patient 12:20:13 CDT Baltazar Childers MD [facility] CPT-42275 Level 4 Est. Patient 14:52:45 [employer] Baltazar Childers MD [facility] CPT-26188 Level 4 Est. Patient 14:18:34 [employer] Baltazar Childers MD [facility] CPT-43393 Level 4 Est. Patient 15:18:29 CDT Baltazar Childers MD [facility] CPT-33567 Level 3 Est. Patient 12:45:34 CDT Baltazar Childers MD [facility] CPT-89127 Level 3 Est. Patient 10:10:11 CDT Baltazar Childers MD [facility] CPT-03895 Level 3 Est. Patient 14:07:50 CDT Baltazar Childers MD [facility] CPT-44271 Level 4 Est. Patient 12:26:10 [employer] Baltazar Childers MD [facility] CPT-35509 Level 4 Est. Patient 14:45:38 CDT Baltazar Childers MD [facility] CPT-46582 Level 4 New Patient 12:30:48 CDT Baltazar hinton MD [facility] Procedures Code Procedure Name Date Entry Date Standard Desc ription CPT-91420 Venipuncture Draw Fee 14:50:21 [employer] CPT-02886 Immunization Single Admin 17:35:35 CDT 2014 CPT-43948 Fluzone Quadrivalent preservative free ( >=3yrs.) 17:35:35 CDT CPT-84749 Venipuncture Draw Fee 12:10:27 [employer] CPT-26754 Fluzone Quadrivalent Intramuscular Suspe nsion 0.5 ML 10:49:13 CDT CPT-91366 First Vx Component - Ix admi n via ID IM or jet inj without physician counseling 15:17:19 [employer] CPT-41360 Pneumovax 23 15:17:19 [employer] CPT-52159 Pneumovax 14:52:45 [employer] CPT-25801 Venipuncture Draw Fee 14:06:30 [employer] CPT-000 Give Appropriate Flu Vaccine 14:18:34 [employer] 2 CPT-84152 Administration single or combination vac cine inc oral 14:46:00 [employer] CPT-12473 Influenza split virus > age 3 14:46:00 [employer] CPT-OV Office Visit 19:13:16 CDT CPT-38449 Zostavax 18:41:56 CDT CPT-16678 Administration single or combination vac cine inc oral 12:56:39 CDT CPT-06026 Zoster Vaccine (Zostavax) 12:56:39 CDT 2012 CPT-02618 Venipuncture Draw Fee 10:58:57 CDT CPT-13705 Sono pelvis non OB uterus ovaries cervix 17:45:04 CDT CPT-30297 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
--- OUTSIDE RECORDS SUMMARY | 2019-10-27 12:57 | XMS REPORT | Clinical Summary ---
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 Benign neoplasm of colon PERIPHERAL NEUROPATHY [...] ronary atherosclerosis of unspecified type of vessel, [place] or graft OTH NONSPC ABN FINDNG RAD&OTH [...] a day as needed 2 NAPROXEN SODIUM 24834597603 No Longer Active Baltazar Childers MD Active ATORVASTATIN CALCIUM 20 MG ORAL TABS Take 1 tab daily ATORVASTATIN CALCIUM 84926317995 Active KENDALL Juarez Active FUROSEMIDE 40 MG TABS Take one by mouth daily FUROSEMIDE 42654956497 Active Baltazar Childers MD Active LISINOPRIL 20 MG TABS Take one by mouth daily at bedtime LISINOPRIL 24081592109 Active KENDALL Juarez Active ONETOUCH ULTRA BLUE STRP Test twice a day GLUCO SE BLOOD 17343249327 No Longer Active Baltazar Childers MD Active TRUEPLUS LANCETS 33G MISC Test twice a day LANCET S 85864240649 Active KENDALL Juarez Active TRUEDRAW LANCING DEVICE MISC Test twice a day L ANCET DEVICES 57025808154 Active Baltazar Childers MD Active TRUETRACK TEST STRP Test twice a day GLUCOSE BLOO D 17220299801 Active Baltazar Childers MD Active TRUETRACK BLOOD GLUCOSE W/DEVICE KIT Test twice a day BLOOD GLUCOSE MONITORING SUPPL 10887370609 Active Baltazar Childers MD Activ e HYDROCODONE-ACETAMINOPHEN 7.5-325 MG TABS Take 1 tab every 6-8 hour s PRN HYDROCODONE-ACETAMINOPHEN 57432071819 Active Baltazar Childers MD Active NORTRIPTYLINE HCL 50 MG CAPS 1 every night for neuropathy 4 NORTRIPTYLINE HCL 14384284682 Active Baltazar Childers MD Acti ve GABAPENTIN 300 MG CAPS 1 three times a day GABAPE NTIN 20756269137 Active KENDALL Juarez Active GABAPENTIN 300 MG CAPS 1 po qd x 2 days, then 1 po BID x 2 d ays, then 1 po TID GABAPENTIN 16145568517 No Longer Active Baltazar silverman MD Active TRAMADOL HCL 50 MG TABS 1 twice a day as needed for pain TRAMADOL HCL 60394847882 Active Baltazar Childers MD Active NAPROXEN 500 MG TABS 1 tablet by mouth twice daily NAPROXEN 57676382834 No Longer Active Baltazar Childers MD Active PROAIR HFA 108 (90 BASE) MCG/ACT AERS 2 puffs four times a d ay as needed ALBUTEROL SULFATE 31340282046 Active KENDALL Juarez Active DEPO-TESTOSTERONE 200 MG/ML OIL as directed RUFINO TOSTERONE CYPIONATE 69515274184 No Longer Active Baltazar Childers MD Active LIPITOR 20 MG TABS Take one by mouth daily in evening ATORVASTATIN CALCIUM 38326316305 No Longer Active Baltazar Childers MD Activ e CRESTOR 10 MG TABS 1 by mouth every day R OSUVASTATIN CALCIUM 14704643648 No Longer Active Baltazar Childers MD Activ e PHENTERMINE HCL 37.5 MG TABS Take one by mouth daily 2 PHENTERMINE HCL 77668656378 No Longer Active Baltazar Childers MD Activ e ROBAXIN-750 750 MG TABS Take one by mouth daily ME THOCARBAMOL 73652852307 Active Baltazar Childers MD Active TIZANIDINE HCL 4 MG TABS 1 daily as needed for muscle spasm 2011 TIZANIDINE HCL 96720350747 No Longer Active Dawna Salazar RN Active [id number] 50-325-40 MG TABS 1 four time s a day as needed for heacache [id number] 80466410385 Active Baltazar Childers MD Active SUMATRIPTAN SUCCINATE 100 MG TABS 1 tablet by mouth at onset of migraine as needed SUMATRIPTAN SUCCINATE 63282958868 Active KENDALL Juarez Active LORATADINE 10 MG TABS Take one by mouth daily LORATADINE 41359164915 Active Baltazar Childers MD Active OMEPRAZOLE 20 MG CPDR Take one by mouth daily OMEPRAZOLE 11624652038 Active Baltazar Childers MD Active HYDROXYZINE HCL 25 MG TABS Take one by mouth daily HYDROXYZINE HCL 10050064895 Active Baltazar Childers MD Active GLIPIZIDE 10 MG TABS 1 tablet by mouth twice daily GLIPIZIDE 00778129714 Active KENDALL Juarez Active ALPRAZOLAM 1 MG TABS 1 tablet by mouth daily at bedtime for restles s leg ALPRAZOLAM 93337522712 Active Baltazar Childers MD Active METFORMIN HCL 1000 MG TABS Take one by mouth twice daily METFORMIN HCL 75692798275 Active Baltazar Childers MD Active TIZANIDINE HCL 4 MG TABS 1 daily as needed for muscle spasm 2011 TIZANIDINE HCL 4 MG TABS 726722 TIZANIDINE HCL Inactiv e PHENTERMINE HCL 37.5 MG TABS Take one by mouth daily 2 PHENTERMINE HCL 37.5 MG TABS 622920 PHENTERMINE HCL Inactive CRESTOR 10 MG TABS 1 by mouth every day C RESTOR 10 MG TABS ROSUVASTATIN CALCIUM Inactive LIPITOR 20 MG TABS Take one by mouth daily in evening LIPITOR 20 MG TABS 728786 ATORVASTATIN CALCIUM Inactive DEPO-TESTOSTERONE 200 MG/ML OIL as directed 8 DEPO-TESTOSTERONE 200 MG/ML OIL 852788 TESTOSTERONE CYPIONATE Inactive NAPROXEN 500 MG TABS 1 tablet by mouth twice daily 201 07/27/22 NAPROXEN 500 MG TABS 067219 NAPROXEN Inactive GABAPENTIN 300 MG CAPS 1 po qd x 2 days, then 1 po BID x 2 d ays, then 1 po TID GABAPENTIN 300 MG CAPS 520972 GABAPENTIN Inact amie ONETOUCH ULTRA BLUE STRP Test twice a day ONETOUCH ULTRA BLUE STRP GLUCOSE BLOOD Inactive NAPROXEN SODIUM 220 MG ORAL TABS 1 three times a day as needed 2 NAPROXEN SODIUM 220 MG ORAL TABS 401990 NAPROXEN SODIUM Inactive Immunizations Vaccine Administration Date Value Standard Floyd cription pneumococcal immunization administered Pneumovax 23 [CVX33] pneumococcal polysaccharide vaccine, 23 valent Seasonal influenza vaccine, injectable, containing preservative, for > 3 years old (Afluria, FluLaval, Fluzone, Fluvirin, Fluarix, Agriflu(>= 18 yo)) Fluzone (>3 yrs.) [[id number]] Influenza, seasonal, inject able Seasonal influenza vaccine, injectable, containing preservative, for > 3 years old (Afluria, FluLaval, Fluzone, Fluvirin, Fluarix, Agriflu(>= 18 yo)) Fluzone (>3 yrs.) [[id number]] Influenza, seasonal, inject able Vital Signs Date [...] 7.9 % 4.3-6.0 sodium, serum 139 mmol/L 553-951 3408/02/04 potassium, serum 5.4 mmol/L 3.5-5.2 chloride, serum [...] Panel - Chemistry sodium, serum 138 mmol/L 435-395 3325/11/23 carbon dioxide, venous blood 32.4 mmol/L 21.0-32 .0 potassium, serum 5.7 mmol/L 3.5-5.2 chloride, serum 98 mmol/L 98-107 blood glucose 136 mg/dL 65-110 urea nitrogen, blood 18 mg/dL 7-18 creatinine, serum 1.71 mg/dL 0.55-1.30 alanine aminotransferase (SGPT), serum 71 U/L 12-78 aspartate aminotransferase (SGOT), serum 34 U/L 15-37 calcium, serum 9.4 mg/dL 8.5-10.1 bilirubin, serum, total 0.40 mg/dL 0.00-1.00 cholesterol, serum 405 mg/dL 854-664 5909/11/23 triglyceride, serum, fasting 709 mg/dL 30-200 HDL [...] mg/dL Encounters Code Encounter Date Provider Facility CPT-90908 Level 4 Est. Patient 16:01:48 CDT [facility] CPT-46250 Level 4 Est. Patient 16:54:07 KEG WASHER Bal[facility] CPT-04762 Level 4 Est. Patient 15:42:12 CDT Baltazar Childers MD [facility] CPT-71794 Level 4 Est. Patient 11:29:55 CDT Baltazar Childers MD [facility] CPT-21885 Level 4 Est. Patient 14:15:19 CDT Baltazar Childers MD [facility] CPT-44368 Level 4 Est. Patient 12:20:13 CDT Baltazar Childers MD [facility] CPT-25333 Level 4 Est. Patient 14:52:45 KEG WASHER Baltazar Childers MD [facility] CPT-75666 Level 4 Est. Patient 14:18:34 KEG WASHER Baltazar Childers MD [facility] CPT-38795 Level 4 Est. Patient 15:18:29 CDT Baltazar Childers MD [facility] CPT-06173 Level 3 Est. Patient 12:45:34 CDT Baltazar Childers MD [facility] CPT-84447 Level 3 Est. Patient 10:10:11 CDT Baltazar Childers MD [facility] CPT-91437 Level 3 Est. Patient 14:07:50 CDT Baltazar Childers MD [facility] CPT-16145 Level 4 Est. Patient 12:26:10 KEG WASHER Baltazar Childers MD [facility] CPT-14872 Level 4 Est. Patient 14:45:38 CDT Baltazar Childers MD [facility] CPT-15144 Level 4 New Patient 12:30:48 CDT Baltazar hinton MD [facility] Procedures Code Procedure Name Date Entry Date Standard Desc ription CPT-29035 Venipuncture Draw Fee 14:50:21 KEG WASHER CPT-90494 Immunization Single Admin 17:35:35 CDT 2014 CPT-11965 Fluzone Quadrivalent preservative free ( >=3yrs.) 17:35:35 CDT CPT-46489 Venipuncture Draw Fee 12:10:27 KEG WASHER CPT-23162 Fluzone Quadrivalent Intramuscular Suspe nsion 0.5 ML 10:49:13 CDT CPT-36097 First Vx Component - Ix admi n via ID IM or jet inj without physician counseling 15:17:19 KEG WASHER CPT-34821 Pneumovax 15:17:19 KEG WASHER CPT-81561 Pneumovax 14:52:45 KEG WASHER CPT-14901 Venipuncture Draw Fee 14:06:30 KEG WASHER CPT-000 Give Appropriate Flu Vaccine 14:18:34 KEG WASHER 2 CPT-33084 Administration single or combination vac cine inc oral 14:46:00 KEG WASHER CPT-51978 Influenza split virus > age 3 14:46:00 KEG WASHER CPT-OV Office Visit 19:13:16 CDT CPT-62854 Zostavax 18:41:56 CDT CPT-98111 Administration single or combination vac cine inc oral 12:56:39 CDT CPT-83598 Zoster Vaccine (Zostavax) 12:56:39 CDT 2012 CPT-58892 Venipuncture Draw Fee 10:58:57 CDT CPT-54186 Sono pelvis non OB uterus ovaries cervix 17:45:04 CDT CPT-56559 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
--- OUTSIDE RECORDS SUMMARY | 2019-10-27 12:58 | XMS REPORT | Clinical Summary ---
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 Benign neoplasm of colon PERIPHERAL NEUROPATHY [...] ronary atherosclerosis of unspecified type of vessel, false pass or graft OTH NONSPC ABN FINDNG RAD&OTH [...] MISC Test twice a day LANCET S 74022555729 Active Baltazar Childers MD Active TRUEDRAW LANCING DEVICE MISC Test twice a day L ANCET DEVICES 19566244641 Active Baltazar Childers MD Active TRUETRACK TEST STRP Test twice a day GLUCOSE BLOO D 25959145987 Active Baltazar Childers MD Active TRUETRACK BLOOD GLUCOSE W/DEVICE KIT Test twice a day BLOOD GLUCOSE MONITORING SUPPL 31079414448 Active Baltazar Childers MD Activ e HYDROCODONE-ACETAMINOPHEN 7.5-325 MG TABS Take 1 tab every 6-8 hour s PRN HYDROCODONE-ACETAMINOPHEN 80078093705 Active Baltazar Childers MD Active NORTRIPTYLINE HCL 50 MG CAPS 1 every night for neuropathy 4 NORTRIPTYLINE HCL 16913920745 Active Baltazar Childers MD Acti ve GABAPENTIN 300 MG CAPS 1 three times a day GABAPE NTIN 99745819111 Active Baltazar Childers MD Active GABAPENTIN 300 MG CAPS 1 po qd x 2 days, then 1 po BID x 2 d ays, then 1 po TID GABAPENTIN 10569311860 No Longer Active Baltazar silverman MD Active TRAMADOL HCL 50 MG TABS 1 twice a day as needed for pain TRAMADOL HCL 31561070024 Active Baltazar Childers MD Active NAPROXEN 500 MG TABS 1 tablet by mouth twice daily NAPROXEN 65006112072 No Longer Active Baltazar Childers MD Active PROAIR HFA 108 (90 BASE) MCG/ACT AERS 2 puffs four times a d ay as needed ALBUTEROL SULFATE 42046243615 Active Baltazar Childers MD Active DEPO-TESTOSTERONE 200 MG/ML OIL as directed RUFINO TOSTERONE CYPIONATE 18140441844 No Longer Active Baltazar Childers MD Active LIPITOR 20 MG TABS Take one by mouth daily in evening ATORVASTATIN CALCIUM 29056529858 No Longer Active Baltazar Childers MD Activ e CRESTOR 10 MG TABS 1 by mouth every day R OSUVASTATIN CALCIUM 48531830138 No Longer Active Baltazar Childers MD Activ e PHENTERMINE HCL 37.5 MG TABS Take one by mouth daily 2 PHENTERMINE HCL 04947049803 No Longer Active Baltazar Childers MD Activ e ROBAXIN-750 750 MG TABS Take one by mouth daily ME THOCARBAMOL 38026489950 Active Baltazar Childers MD Active TIZANIDINE HCL 4 MG TABS 1 daily as needed for muscle spasm 2011 TIZANIDINE HCL 94503147559 No Longer Active Dawna Salazar RN Active InstantLuxeUCH ULTRA BLUE STRP Test twice a day GLUCO SE BLOOD 48768053871 Active Baltazar Childers MD Active [id number] 50-325-40 MG TABS 1 four time s a day as needed for heacache [id number] 26245884101 Active Baltazar Childers MD Active SUMATRIPTAN SUCCINATE 100 MG TABS 1 tablet by mouth at onset of migraine as needed SUMATRIPTAN SUCCINATE 58801834197 Active Baltazar bynum MD Active LORATADINE 10 MG TABS Take one by mouth daily LORATADINE 10660276272 Active Baltazar Childers MD Active FUROSEMIDE 40 MG TABS Take one by mouth daily FUROSEMIDE 11780627751 Active Baltazar Childers MD Active LISINOPRIL 20 MG TABS Take one by mouth daily at bedtime LISINOPRIL 75508134389 Active Baltazar Childers MD Active OMEPRAZOLE 20 MG CPDR Take one by mouth daily OMEPRAZOLE 94722525552 Active Baltazar Childers MD Active HYDROXYZINE HCL 25 MG TABS Take one by mouth daily HYDROXYZINE HCL 32866663670 Active Baltazar Childers MD Active GLIPIZIDE 10 MG TABS 1 tablet by mouth twice daily GLIPIZIDE 40557835930 Active Baltazar Childers MD Active ALPRAZOLAM 1 MG TABS 1 tablet by mouth daily at bedtime for restles s leg ALPRAZOLAM 33112637750 Active Baltazar Childers MD Active METFORMIN HCL 1000 MG TABS Take one by mouth twice daily METFORMIN HCL 11429905215 Active Baltazar Childers MD Active TIZANIDINE HCL 4 MG TABS 1 daily as needed for muscle spasm 2011 TIZANIDINE HCL 4 MG TABS 358835 TIZANIDINE HCL Inactiv e PHENTERMINE HCL 37.5 MG TABS Take one by mouth daily 2 PHENTERMINE HCL 37.5 MG TABS 849566 PHENTERMINE HCL Inactive CRESTOR 10 MG TABS 1 by mouth every day C RESTOR 10 MG TABS ROSUVASTATIN CALCIUM Inactive LIPITOR 20 MG TABS Take one by mouth daily in evening LIPITOR 20 MG TABS 374394 ATORVASTATIN CALCIUM Inactive DEPO-TESTOSTERONE 200 MG/ML OIL as directed 8 DEPO-TESTOSTERONE 200 MG/ML OIL 502943 TESTOSTERONE CYPIONATE Inactive NAPROXEN 500 MG TABS 1 tablet by mouth twice daily 201 07/27/22 NAPROXEN 500 MG TABS 724576 NAPROXEN Inactive GABAPENTIN 300 MG CAPS 1 po qd x 2 days, then 1 po BID x 2 d ays, then 1 po TID GABAPENTIN 300 MG CAPS 825126 GABAPENTIN Inact amie Immunizations Vaccine Administration Date Value Standard Floyd cription pneumococcal immunization administered Pneumovax 23 [CVX33] pneumococcal polysaccharide vaccine, 23 valent Seasonal influenza vaccine, injectable, containing preservative, for > 3 years old (Afluria, FluLaval, Fluzone, Fluvirin, Fluarix, Agriflu(>= 18 yo)) Fluzone (>3 yrs.) [[id number]] Influenza, seasonal, inject able Seasonal influenza vaccine, injectable, containing preservative, for > 3 years old (Afluria, FluLaval, Fluzone, Fluvirin, Fluarix, Agriflu(>= 18 yo)) Fluzone (>3 yrs.) [[id number]] Influenza, seasonal, inject able Vital Signs Date [...] - Chem istry sodium, serum 140 mmol/L 457-699 4362/05/05 potassium, serum 4.9 mmol/L 3.5-5.2 chloride, serum [...] Panel - Chemistry sodium, serum 139 mmol/L 706-189 6499/01/20 potassium, serum 5.3 mmol/L 3.5-5.2 chloride, serum [...] mg/g mg/g{creat} 0-29 cholesterol, serum 319 mg/dL 043-853 2707/08/21 triglyceride, serum, fasting 546 mg/dL 30-200 HDL cholesterol, serum 39 mg/dL 32-96 LDL cholesterol, serum 167.00 mg/dL 5.00-130.00 hemoglobin A1C, blood, as % of total hemoglobin 7.7 % 4.3-6.0 sodium, serum 138 mmol/L 891-802 7652/08/21 potassium, serum 4.3 mmol/L 3.5-5.2 chloride, serum [...] 0-19 Encounters Code Encounter Date Provider Facility CPT-40514 Level 4 Est. Patient 11:29:55 CDT Baltazar Childers MD [facility] CPT-22794 Level 4 Est. Patient 14:15:19 CDT Baltazar Childers MD [facility] CPT-57029 Level 4 Est. Patient 12:20:13 CDT Baltazar Childers MD [facility] CPT-39101 Level 4 Est. Patient 14:52:45 PILOT FUEL ENGINEER Baltazar Childers MD [facility] CPT-47597 Level 4 Est. Patient 14:18:34 PILOT FUEL ENGINEER Baltazar Childers MD [facility] CPT-39555 Level 4 Est. Patient 15:18:29 CDT Baltazar Childers MD [facility] CPT-01978 Level 3 Est. Patient 12:45:34 CDT Baltazar Childers MD [facility] CPT-09800 Level 3 Est. Patient 10:10:11 CDT Baltazar Childers MD [facility] CPT-67833 Level 3 Est. Patient 14:07:50 CDT Baltazar Childers MD [facility] CPT-17270 Level 4 Est. Patient 12:26:10 PILOT FUEL ENGINEER Baltazar Childers MD [facility] CPT-32754 Level 4 Est. Patient 14:45:38 CDT Baltazar Childers MD [facility] CPT-36354 Level 4 New Patient 12:30:48 CDT Baltazar hinton MD [facility] Procedures Code Procedure Name Date Entry Date Standard Desc ription CPT-04900 Venipuncture Draw Fee 12:10:27 PILOT FUEL ENGINEER CPT-51783 Fluzone Quadrivalent Intramuscular Suspe nsion 0.5 ML 10:49:13 CDT CPT-90001 First Vx Component - Ix admi n via ID IM or jet inj without physician counseling 15:17:19 PILOT FUEL ENGINEER CPT-24136 Pneumovax 15:17:19 PILOT FUEL ENGINEER CPT-72558 Pneumovax 14:52:45 PILOT FUEL ENGINEER CPT-28695 Venipuncture Draw Fee 14:06:30 PILOT FUEL ENGINEER CPT-000 Give Appropriate Flu Vaccine 14:18:34 PILOT FUEL ENGINEER 2 CPT-90246 Administration single or combination vac cine inc oral 14:46:00 PILOT FUEL ENGINEER CPT-20098 Influenza split virus > age 3 14:46:00 PILOT FUEL ENGINEER CPT-OV Office Visit 19:13:16 CDT CPT-49220 Zostavax 18:41:56 CDT CPT-48252 Administration single or combination vac cine inc oral 12:56:39 CDT CPT-20811 Zoster Vaccine (Zostavax) 12:56:39 CDT 2012 CPT-20938 Venipuncture Draw Fee 10:58:57 CDT CPT-39685 Sono pelvis non OB uterus ovaries cervix 17:45:04 CDT CPT-43294 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
--- OUTSIDE RECORDS SUMMARY | 2019-10-27 12:58 | XMS REPORT | Clinical Summary ---
Author Author Admin, Elba Lance [facility] Address Unknown Phone Unavailable Allergies, Adverse [...] legs syndrome (RLS) DIABETES MELLITUS 250.00 Active Baltzaar Childers MD Diabetes mellitus without mention of 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 CANDY PULLER Benign neoplasm of colon PERIPHERAL NEUROPATHY 356.9 [...] ronary atherosclerosis of unspecified type of vessel, [place] or graft OTH NONSPC ABN FINDNG RAD&OTH [...] three times a day 201 12/03/26 GABAPENTIN 82424089426 No Longer Active Baltazar Childers MD Activ e LISINOPRIL 20 MG ORAL TABLET 1 tablet by mouth daily at night 2016 LISINOPRIL 46458288027 Active Baltazar Childers MD Active ZITHROMAX Z-ISAIAS 250 MG ORAL TABLET Take two tablets to day and then 1 tablet daily for 4 days AZITHROMYCIN 29425781659 No Longer A ctive Baltazar Childers MD Active LANTUS SOLOSTAR 100 UNIT/ML SUBCUTANEOUS SOLUTION PEN- INJECTOR 30 units SC daily INSULIN GLARGINE 82825513359 Active Baltazar Childers MD Active AMLODIPINE BESYLATE 5 MG ORAL TABLET 1 tab daily for HTN AMLODIPINE BESYLATE 53095625387 Active Baltazar Childers MD Active SYNTHROID 100 MCG ORAL TABLET 1 tablet by mouth daily LEVOTHYROXINE SODIUM 87070966079 Active Baltazar Childers MD Active GLIPIZIDE 10 MG ORAL TABLET take 2 tablets twice daily GLIPIZIDE 57723806592 Active Baltazar Childers MD Active SUCRALFATE 1 GM ORAL TABLET 1 four times a day to coat the stoma ch SUCRALFATE 14826441726 No Longer Active Baltazar Childers MD Active PEN NEEDLES 31G X 6 MM use 1 daily INSULIN PEN NE EDLE 95655285434 Active KENDALL Juarez Active CELINA POWERSOSTNAKITA 300 UNIT/ML SUBCUTANEOUS SOLUTION PEN- INJECTOR 10 units SC daily INSULIN GLARGINE 57339436423 No Longer Active Rola Godinez RMA Active NAPROXEN SODIUM 220 MG ORAL TABLET 1 three times a day as needed NAPROXEN SODIUM 47360687615 No Longer Active Baltazar Childers MD Active ATORVASTATIN CALCIUM 20 MG ORAL TABLET Take 1 tab daily ATORVASTATIN CALCIUM 18024806215 Active Baltazar Childers MD A ctive FUROSEMIDE 40 MG ORAL TABLET Take one by mouth daily FUROSEMIDE 70024940662 Active Jessy Arellano LPN Active LISINOPRIL 20 MG ORAL TABLET Take one by mouth daily at bedtime LISINOPRIL 29644398917 No Longer Active Baltazar Childers MD Active ONETOUCH ULTRA BLUE IN VITRO STRIP Test twice a day 07/11/11 GLUCOSE BLOOD 06021631456 No Longer Active Baltazar Childers MD Acti ve TRUEPLUS LANCETS 33G Test twice a day LANCETS 3475393 7018 Active KENDALL Juarez Active TRUEDRAW LANCING DEVICE Test twice a day LANCET DEVICES 72051219155 Active Baltazar Childers MD Active TRUETRACK TEST IN VITRO STRIP Test twice a day GLUCOSE BLOOD 15836260157 Active KENDALL Juarez Active TRUETRACK BLOOD GLUCOSE w/Device KIT Test twice a day BLOOD GLUCOSE MONITORING SUPPL 53229018552 Active Baltazar Childers MD Activ e HYDROCODONE-ACETAMINOPHEN 7.5-325 MG ORAL TABLET Take 1 tab every 6-8 hours PRN HYDROCODONE-ACETAMINOPHEN 59052079472 Active Baltazar Nickerson MD Active NORTRIPTYLINE HCL 50 MG ORAL CAPSULE 1 every night for neuropathy 2 NORTRIPTYLINE HCL 04744024005 Active Baltazar Childers MD Acti ve GABAPENTIN 300 MG ORAL CAPSULE 1 po qd x 2 days, then 1 po BID x 2 days, then 1 po TID GABAPENTIN 77462724527 No Longer Active Baltazar Childers MD Active TRAMADOL HCL 50 MG ORAL TABLET 1 twice a day as needed for pain 201 07/27/28 TRAMADOL HCL 16521634787 Active Baltazar Childers MD Active NAPROXEN 500 MG ORAL TABLET 1 tablet by mouth twice daily NAPROXEN 37414470206 No Longer Active Baltazar Childers MD Active PROAIR HFA 108 (90 Base) MCG/ACT INHALATION AEROSOL SO LUTION 2 puffs four times a day as needed ALBUTEROL SULFATE 25752361555 Active KENDALL Bowie Active DEPO-TESTOSTERONE 200 MG/ML INTRAMUSCULAR SOLUTION as directed TESTOSTERONE CYPIONATE 34639888044 No Longer Active Baltazar Childers MD Active LIPITOR 20 MG ORAL TABLET Take one by mouth daily in evening ATORVASTATIN CALCIUM 43892227196 No Longer Active Baltazar Childers MD Active CRESTOR 10 MG ORAL TABLET 1 by mouth every day ROSUVASTATIN CALCIUM 26633555178 No Longer Active Baltazar Childers MD Active PHENTERMINE HCL 37.5 MG ORAL TABLET Take one by mouth daily PHENTERMINE HCL 41201616330 No Longer Active Baltazar Childers MD Ac tive ROBAXIN-750 750 MG ORAL TABLET Take one by mouth daily METHOCARBAMOL 38328731395 Active Baltazar Childers MD Active TIZANIDINE HCL 4 MG ORAL TABLET 1 daily as needed for muscle spa sm TIZANIDINE HCL 50430726868 No Longer Active Dawna Salazar RN Active [id number] 50-325-40 MG ORAL TABLET 1 fo ur times a day as needed for heacache [id number] 67214058115 Active Baltazar Childers MD Active SUMATRIPTAN SUCCINATE 100 MG ORAL TABLET 1 tablet by m out at onset of migraine as needed SUMATRIPTAN SUCCINATE 46822720947 Active KENDALL Restrepo Active LORATADINE 10 MG ORAL TABLET Take one by mouth daily LORATADINE 08707311093 Active Baltazar Childers MD Active OMEPRAZOLE 20 MG ORAL CAPSULE DELAYED RELEASE Take one by mouth jostin ly OMEPRAZOLE 59926459237 Active Baltazar Childers MD Active HYDROXYZINE HCL 25 MG ORAL TABLET Take one by mouth daily HYDROXYZINE HCL 33150463966 Active KENDALL Juarez Active ALPRAZOLAM 1 MG ORAL TABLET 1 [facility] 41528313731 Active Baltazar Childers MD Active METFORMIN HCL 1000 MG ORAL TABLET Take one by mouth twice daily METFORMIN HCL 76622112249 Active Baltazar Childers MD Active TIZANIDINE HCL 4 MG ORAL TABLET 1 daily as needed for muscle spa sm TIZANIDINE HCL 4 MG ORAL TABLET 019584 TIZANIDINE HCL Inactive PHENTERMINE HCL 37.5 MG ORAL TABLET Take one by mouth daily PHENTERMINE HCL 37.5 MG ORAL TABLET 633854 PHENTERMINE HCL Inac tive CRESTOR 10 MG ORAL TABLET 1 by mouth every day CRESTOR 10 MG ORAL TABLET 039490 ROSUVASTATIN CALCIUM Inactive LIPITOR 20 MG ORAL TABLET Take one by mouth daily in evening LIPITOR 20 MG ORAL TABLET 698981 ATORVASTATIN CALCIUM Inactive DEPO-TESTOSTERONE 200 MG/ML INTRAMUSCULAR SOLUTION as directed DEPO-TESTOSTERONE 200 MG/ML INTRAMUSCULAR SOLUTION 874384 RUFINO TOSTERONE CYPIONATE Inactive NAPROXEN 500 MG ORAL TABLET 1 tablet by mouth twice daily NAPROXEN 500 MG ORAL TABLET 410936 NAPROXEN Inactive GABAPENTIN 300 MG ORAL CAPSULE 1 po qd x 2 days, then 1 po BID x 2 days, then 1 po TID GABAPENTIN 300 MG ORAL CAPSULE 889966 GABAP ENTIN Inactive ONETOUCH ULTRA BLUE IN VITRO STRIP Test twice a day 07/11/11 ONETOUCH ULTRA BLUE IN VITRO STRIP GLUCOSE BLOOD Inact amie NAPROXEN SODIUM 220 MG ORAL TABLET 1 three times a day as needed NAPROXEN SODIUM 220 MG ORAL TABLET 803783 NAPROXEN SODI UM Inactive TOUJEO SOLOSTAR 300 UNIT/ML SUBCUTANEOUS SOLUTION PEN- INJECTOR 10 units SC daily TOUJEO SOLOSTAR 300 UNIT/ML SUBCUTANEOUS SOLUTION PEN-INJECTOR INSULIN GLARGINE Inactive SUCRALFATE 1 GM ORAL TABLET 1 four times a day to coat the stoma ch SUCRALFATE 1 GM ORAL TABLET 490614 SUCRALFATE Inac tive GABAPENTIN 300 MG ORAL CAPSULE 1 three times a day 201 12/03/26 GABAPENTIN 300 MG ORAL CAPSULE 515714 GABAPENTIN Inactive ZITHROMAX Z-ISAIAS 250 MG ORAL TABLET Take two tablets to day and then 1 tablet daily for 4 days ZITHROMAX Z-ISAIAS 250 MG ORAL TAB LET 381768 AZITHROMYCIN Inactive Immunizations Vaccine Administration Date Value Standard Floyd cription pneumococcal immunization administered Pneumovax 23 [CVX33] pneumococcal polysaccharide vaccine, 23 valent Seasonal influenza vaccine, injectable, containing preservative, for > 3 years old (Afluria, FluLaval, Fluzone, Fluvirin, Fluarix, Agriflu(>= 18 yo)) Fluzone (>3 yrs.) [ILJ688] Influenza, seasonal, inject able Seasonal influenza vaccine, injectable, containing preservative, for > 3 years old (Afluria, FluLaval, Fluzone, Fluvirin, Fluarix, Agriflu(>= 18 yo)) Fluzone (>3 yrs.) [HJV427] Influenza, seasonal, inject able Vital Signs Date [...] - Chem istry sodium, serum 139 mmol/L 880-595 2265/10/03 potassium, serum 4.7 mmol/L 3.5-5.2 chloride, serum 98 mmol/L 98-107 carbon dioxide, venous blood 28.7 mmol/L 21.0-32 .0 blood glucose 218 mg/dL 65-110 calcium, serum 9.8 mg/dL 8.5-10.1 urea nitrogen, blood 19 mg/dL 7-18 creatinine, serum 1.68 mg/dL 0.60-1.30 Lab Report: Basic Metabolic Panel, HGBA1 C - Chemistry sodium, serum 143 mmol/L 337-124 5646/06/19 potassium, serum 5.9 mmol/L 3.5-5.2 chloride, serum 105 mmol/L 98-107 carbon dioxide, venous blood 30.2 mmol/L 21.0-32 .0 blood glucose 189 mg/dL 65-110 calcium, serum 9.7 mg/dL 8.5-10.1 urea nitrogen, blood 37 mg/dL 7-18 creatinine, serum 2.11 mg/dL 0.55-1.30 hemoglobin A1C, blood, as % of total hemoglobin 8.2 % 4.3-6.0 Lab Report: CBC, Renal Panel - Chemistry sodium, serum 142 mmol/L 880-476 6253/08/11 potassium, serum 4.8 mmol/L 3.5-5.2 chloride, serum [...] (L) - Chemistry cholesterol, serum 209 mg/dL 845-955 9911/12/27 triglyceride, serum, fasting 329 mg/dL 30-200 HDL cholesterol, serum 56 mg/dL 32-60 LDL cholesterol, serum 87 mg/dL 0-130 TSH 3.60 m[iU]/mL 0.36-3.74 Encounters Code Encounter Date Provider Facility CPT-69601 Level 4 Est. Patient 16:21:19 CAR PILOT Baltazar Childers MD [facility] CPT-97175 Level 4 Est. Patient 12:25:11 CDT Baltazar Childers MD [facility]-29694 Level 4 Est. Patient 14:22:31 CDT Baltazar Childers MD [facility]-30964 Level 4 Est. Patient 15:44:38 CDT Shonna Parker APRN [facility]-39072 Level 4 Est. Patient 11:34:17 CDT Baltazar Childers MD [facility]-53846 Level 3 Est. Patient 16:40:40 CDT Baltazar Childers MD [facility]-73417 Level 4 Est. Patient 10:41:24 CDT Baltazar Childers MD [facility]-26056 Level 4 Est. Patient 16:01:48 CDT Baltazar Childers MD [facility]-22871 Level 4 Est. Patient 16:54:07 CAR PILOT Baltazar Childers MD [facility]53123 Level 4 Est. Patient 15:42:12 CDT Baltazar Childers MD [facility] CPT-35720 Level 4 Est. Patient 11:29:55 CDT Baltazar Childers MD [facility]-03985 Level 4 Est. Patient 14:15:19 CDT Baltazar Childers MD [facility]-69894 Level 4 Est. Patient 12:20:13 CDT Baltazar Childers MD [facility]-34635 Level 4 Est. Patient 14:52:45 CAR PILOT Baltazar Childers MD [facility]-79842 Level 4 Est. Patient 14:18:34 CAR PILOT Baltazar Childers MD [facility]-65432 Level 4 Est. Patient 15:18:29 CDT Baltazar Childers MD [facility]-91697 Level 3 Est. Patient 12:45:34 CDT Baltazar Childers MD [facility] CPT-69233 Level 3 Est. Patient 10:10:11 CDT Baltazar Childers MD [facility] CPT-40402 Level 3 Est. Patient 14:07:50 CDT Baltazar Childers MD [facility] CPT-54482 Level 4 Est. Patient 12:26:10 CAR PILOT Baltazar Childers MD [facility] CPT-28117 Level 4 Est. Patient 14:45:38 CDT Baltazar Childers MD [facility] CPT-75489 Level 4 New Patient 12:30:48 CDT Baltazar hinton MD [facility] Procedures Code Procedure Name Date Entry Date Standard Desc ription CPT-58267 First Vx - Ix admin via ID I M or jet injects without counseling by physician 13:08:59 CDT CPT-82974 Fluzone Quadrivalent Intramuscular Suspe nsion 0.5 ML 13:08:59 CDT CPT-94042 Venipuncture Draw Fee 12:04:12 CDT CPT-24452 Lipid - LAB USE ONLY 17:39:15 CAR PILOT 9 CPT-61217 HGBA1C - LAB USE ONLY 17:39:15 CAR PILOT CPT-98505 CMP - LAB USE ONLY 17:39:14 CAR PILOT CPT-21166 Venipuncture Draw Fee 17:39:14 CAR PILOT CPT-00585 First Vx - Ix admin via ID I M or jet injects without counseling by physician 16:55:17 CAR PILOT CPT-03033 Fluzone Quadrivalent Intramuscular Suspe nsion 0.5 ML 16:55:17 CAR PILOT CPT-14207 Renal Panel - LAB USE ONLY 17:39:20 CDT 201 10/31/07 CPT-81940 CBC - LAB USE ONLY 17:39:20 CDT CPT-98061 Venipuncture Draw Fee 17:39:20 CDT CPT-25011 Venipuncture Draw Fee 14:33:30 CDT CPT-65480 Renal Panel - LAB USE ONLY 14:33:30 CDT 201 10/31/07 CPT-78142 CBC - LAB USE ONLY 14:33:29 CDT CPT-92186 Venipuncture Draw Fee 14:50:21 CAR PILOT CPT-45351 Immunization Single Admin 17:35:35 CDT 2014 CPT-35629 Fluzone Quadrivalent preservative free ( >=3yrs.) 17:35:35 CDT CPT-95835 Venipuncture Draw Fee 12:10:27 CAR PILOT CPT-34713 Fluzone Quadrivalent Intramuscular Suspe nsion 0.5 ML 10:49:13 CDT CPT-62799 First Vx Component - Ix admi n via ID IM or jet inj without physician counseling 15:17:19 CAR PILOT CPT-98020 Pneumovax 23 15:17:19 CAR PILOT CPT-58186 Pneumovax 14:52:45 CAR PILOT CPT-00976 Venipuncture Draw Fee 14:06:30 CAR PILOT CPT-000 Give Appropriate Flu Vaccine 14:18:34 CAR PILOT 2 CPT-49778 Administration single or combination vac cine inc oral 14:46:00 CAR PILOT CPT-93834 Influenza split virus > age 3 14:46:00 CAR PILOT CPT-OV Office Visit 19:13:16 CDT CPT-04666 Zostavax 18:41:56 CDT CPT-77905 Administration single or combination vac cine inc oral 12:56:39 CDT CPT-04536 Zoster Vaccine (Zostavax) 12:56:39 CDT 2012 CPT-95771 Venipuncture Draw Fee 10:58:57 CDT CPT-35400 Sono pelvis non OB uterus ovaries cervix 17:45:04 CDT CPT-15209 Sono retroperitoneal complete kidneys an d bladder 17:14:36 CDT CPT-OV Office Visit 14:59:38 CAR PILOT CPT-J1070 Depo Testosterone 100 mg 14:50:13 CDT 03/05 CPT-20764 Abx/Therapy Injection 14:50:13 CDT CPT-95861 Administration single or combination vac cine inc oral 14:34:43 CDT CPT-44986 Influenza split virus > age 3 14:34:43 CDT CPT-J1070 Depo Testosterone 100 mg 17:37:13 CDT 01/11 CPT-16701 Abx/Therapy Injection 17:37:13 CDT CPT-04619 Venipuncture Draw Fee 16:30:13 CDT CPT-33488 Venipuncture Draw Fee 16:29:43 CDT CPT-J1070 Depo Testosterone 100 mg 14:45:38 CDT 01/11
--- OUTSIDE RECORDS SUMMARY | 2019-10-27 12:58 | XMS REPORT | Clinical Summary ---
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 Benign neoplasm of colon PERIPHERAL NEUROPATHY [...] ronary atherosclerosis of unspecified type of vessel, [place] or graft OTH NONSPC ABN FINDNG RAD&OTH [...] day to coat the stomach 2015 SUCRALFATE 52880961921 No Longer Active Baltazar Childers MD Active PEN NEEDLES 31G X 6 MM MISC use 1 daily INSULIN PEN NEEDLE 92019412208 Active Bella Suarez AEROSPACE PHYSIOLOGICAL TECHNICIAN Active TOUJEO SOLOSTAR 300 UNIT/ML SC SOPN 10 units SC daily INSULIN GLARGINE 50335689218 No Longer Active Martita Godinez RMA Active LANTUS SOLOSTAR 100 UNIT/ML SC SOPN 10 units SC daily INSULIN GLARGINE 18724495911 Active Baltazar Childers MD Active NAPROXEN SODIUM 220 MG ORAL TABS 1 three times a day as needed 2 NAPROXEN SODIUM 55612871056 No Longer Active Baltazar Childers MD Active ATORVASTATIN CALCIUM 20 MG ORAL TABS Take 1 tab daily ATORVASTATIN CALCIUM 99831777471 Active Baltazar Childers MD Active FUROSEMIDE 40 MG TABS Take one by mouth daily FUROSEMIDE 87373821904 Active Baltazar Childers MD Active LISINOPRIL 20 MG TABS Take one by mouth daily at bedtime LISINOPRIL 04950714102 Active KENDALL Juarez Active ONETOUCH ULTRA BLUE STRP Test twice a day GLUCO SE BLOOD 58724078804 No Longer Active Baltazar Childers MD Active TRUEPLUS LANCETS 33G MISC Test twice a day LANCET S 03224036146 Active KENDALL Juarez Active TRUEDRAW LANCING DEVICE MISC Test twice a day L ANCET DEVICES 10703349540 Active Baltazar Childers MD Active TRUETRACK TEST STRP Test twice a day GLUCOSE BLOO D 67528758107 Active KENDALL Juarez Active TRUETRACK BLOOD GLUCOSE W/DEVICE KIT Test twice a day BLOOD GLUCOSE MONITORING SUPPL 97741224923 Active Baltazar Childers MD Activ e HYDROCODONE-ACETAMINOPHEN 7.5-325 MG TABS Take 1 tab every 6-8 hour s PRN HYDROCODONE-ACETAMINOPHEN 11606841107 Active Shonna Parker APRN Active NORTRIPTYLINE HCL 50 MG CAPS 1 every night for neuropathy 4 NORTRIPTYLINE HCL 51418745190 Active Baltazar Childers MD Acti ve GABAPENTIN 300 MG CAPS 1 three times a day GABAPE NTIN 81714134223 Active Baltazar Childers MD Active GABAPENTIN 300 MG CAPS 1 po qd x 2 days, then 1 po BID x 2 d ays, then 1 po TID GABAPENTIN 77361225653 No Longer Active Baltazar silverman MD Active TRAMADOL HCL 50 MG TABS 1 twice a day as needed for pain TRAMADOL HCL 84048647352 Active Shonna Parker APRN Active NAPROXEN 500 MG TABS 1 tablet by mouth twice daily NAPROXEN 97924775556 No Longer Active Baltazar Childers MD Active PROAIR HFA 108 (90 BASE) MCG/ACT AERS 2 puffs four times a d ay as needed ALBUTEROL SULFATE 47009474277 Active KENDALL Juarez Active DEPO-TESTOSTERONE 200 MG/ML OIL as directed RUFINO TOSTERONE CYPIONATE 67521469236 No Longer Active Baltazar Childers MD Active LIPITOR 20 MG TABS Take one by mouth daily in evening ATORVASTATIN CALCIUM 53425010772 No Longer Active Baltazar Childers MD Activ e CRESTOR 10 MG TABS 1 by mouth every day R OSUVASTATIN CALCIUM 96803112622 No Longer Active Baltazar Childers MD Activ e PHENTERMINE HCL 37.5 MG TABS Take one by mouth daily 2 PHENTERMINE HCL 78434311790 No Longer Active Baltazar Childers MD Activ e ROBAXIN-750 750 MG TABS Take one by mouth daily ME THOCARBAMOL 75563727678 Active Baltazar Childers MD Active TIZANIDINE HCL 4 MG TABS 1 daily as needed for muscle spasm 2011 TIZANIDINE HCL 02430934716 No Longer Active Dawna Salazar RN Active [id number] 50-325-40 MG TABS 1 four time s a day as needed for heacache [id number] 09447932079 Active Shonna Parker APRN Active SUMATRIPTAN SUCCINATE 100 MG TABS 1 tablet by mouth at onset of migraine as needed SUMATRIPTAN SUCCINATE 60999923880 Active Shonna richey APRN Active LORATADINE 10 MG TABS Take one by mouth daily LORATADINE 99033990900 Active Baltazar Childers MD Active OMEPRAZOLE 20 MG CPDR Take one by mouth daily OMEPRAZOLE 54477040419 Active KENDALL Juarez Active HYDROXYZINE HCL 25 MG TABS Take one by mouth daily HYDROXYZINE HCL 27401117295 Active Baltazar Childers MD Active GLIPIZIDE 10 MG TABS 1 tablet by mouth twice daily GLIPIZIDE 96947961380 Active KENDALL Juarez Active ALPRAZOLAM 1 MG TABS 1 tablet by mouth daily at bedtime for restles s leg ALPRAZOLAM 33179802735 Active Baltazar Childers MD Active METFORMIN HCL 1000 MG TABS Take one by mouth twice daily METFORMIN HCL 83660781320 Active Baltazar Childers MD Active TIZANIDINE HCL 4 MG TABS 1 daily as needed for muscle spasm 2011 TIZANIDINE HCL 4 MG TABS 979943 TIZANIDINE HCL Inactiv e PHENTERMINE HCL 37.5 MG TABS Take one by mouth daily 2 PHENTERMINE HCL 37.5 MG TABS 607781 PHENTERMINE HCL Inactive CRESTOR 10 MG TABS 1 by mouth every day C RESTOR 10 MG TABS 107431 ROSUVASTATIN CALCIUM Inactive LIPITOR 20 MG TABS Take one by mouth daily in evening LIPITOR 20 MG TABS 732633 ATORVASTATIN CALCIUM Inactive DEPO-TESTOSTERONE 200 MG/ML OIL as directed 8 DEPO-TESTOSTERONE 200 MG/ML OIL 677555 TESTOSTERONE CYPIONATE Inactive NAPROXEN 500 MG TABS 1 tablet by mouth twice daily 201 07/27/22 NAPROXEN 500 MG TABS 046487 NAPROXEN Inactive GABAPENTIN 300 MG CAPS 1 po qd x 2 days, then 1 po BID x 2 d ays, then 1 po TID GABAPENTIN 300 MG CAPS 415805 GABAPENTIN Inact amie ONETOUCH ULTRA BLUE STRP Test twice a day ONETOUCH ULTRA BLUE STRP GLUCOSE BLOOD Inactive NAPROXEN SODIUM 220 MG ORAL TABS 1 three times a day as needed 2 NAPROXEN SODIUM 220 MG ORAL TABS 338461 NAPROXEN SODIUM Inactive TOUJEO SOLOSTAR 300 UNIT/ML SC SOPN 10 units SC daily TOUJEO SOLOSTAR 300 UNIT/ML SC SOPN INSULIN GLARGINE Inac tive SUCRALFATE 1 GM TABS 1 four times a day to coat the stomach 2015 SUCRALFATE 1 GM TABS 020666 SUCRALFATE Inactive Immunizations Vaccine Administration Date Value Standard Floyd cription pneumococcal immunization administered Pneumovax 23 [CVX33] pneumococcal polysaccharide vaccine, 23 valent Seasonal influenza vaccine, injectable, containing preservative, for > 3 years old (Afluria, FluLaval, Fluzone, Fluvirin, Fluarix, Agriflu(>= 18 yo)) Fluzone (>3 yrs.) [[id number]] Influenza, seasonal, inject able Seasonal influenza vaccine, injectable, containing preservative, for > 3 years old (Afluria, FluLaval, Fluzone, Fluvirin, Fluarix, Agriflu(>= 18 yo)) Fluzone (>3 yrs.) [[id number]] Influenza, seasonal, inject able Vital Signs Date [...] C - Chemistry sodium, serum 139 mmol/L 009-247 2519/07/07 potassium, serum 4.5 mmol/L 3.5-5.2 chloride, serum [...] Panel - Chemistry sodium, serum 143 mmol/L 403-028 5848/12/19 carbon dioxide, venous blood 32.5 mmol/L 21.0-32 .0 potassium, serum 4.9 mmol/L 3.5-5.2 chloride, serum 101 mmol/L 98-107 blood glucose 129 mg/dL 65-110 urea nitrogen, blood 18 mg/dL 7-18 creatinine, serum 1.79 mg/dL 0.55-1.30 alanine aminotransferase (SGPT), serum 34 U/L 12-78 aspartate aminotransferase (SGOT), serum 26 U/L 15-37 calcium, serum 8.9 mg/dL 8.5-10.1 bilirubin, serum, total 0.30 mg/dL 0.00-1.00 cholesterol, serum 214 mg/dL 649-281 8312/12/19 triglyceride, serum, fasting 351 mg/dL 30-200 HDL cholesterol, serum 52 mg/dL 32-96 LDL cholesterol, serum 92 mg/dL 0-130 Lab Report: HGBA1C - Chemistry hemoglobin A1C, blood, as % of total hemoglobin 7.3 % 4.3-6.0 Lab Report: Renal Panel - Chemistry sodium, serum 141 mmol/L 667-730 9235/08/08 potassium, serum 4.9 mmol/L 3.5-5.2 chloride, serum 101 mmol/L 98-107 carbon dioxide, venous blood 34.1 mmol/L 21.0-32 .0 creatinine, serum 1.98 mg/dL 0.55-1.30 blood glucose 193 mg/dL 65-110 urea nitrogen, blood 30 mg/dL 7-18 calcium, serum 9.8 mg/dL 8.5-10.1 Encounters Code Encounter Date Provider Facility CPT-26390 Level 4 Est. Patient 15:44:38 CDT Shonna Parker APRN [facility] CPT-40397 Level 4 Est. Patient 11:34:17 CDT Baltazar Childers MD [facility] CPT-48244 Level 3 Est. Patient 16:40:40 CDT Baltazar Childers MD [facility] CPT-58614 Level 4 Est. Patient 10:41:24 CDT Baltazar Childers MD [facility] CPT-18765 Level 4 Est. Patient 16:01:48 CDT Baltazar Childers MD [facility] CPT-42893 Level 4 Est. Patient 16:54:07 MOLDER Baltazar Childers MD [facility] CPT-08735 Level 4 Est. Patient 15:42:12 CDT [facility] Level 4 Est. Patient 11:29:55 CDT Baltazar Childers MD [facility] CPT-06097 Level 4 Est. Patient 14:15:19 CDT Baltazar Childers MD [facility] CPT-73955 Level 4 Est. Patient 12:20:13 CDT Baltazar Childers MD [facility] CPT-40588 Level 4 Est. Patient 14:52:45 MOLDER Baltazar Childers MD [facility] CPT-67161 Level 4 Est. Patient 14:18:34 MOLDER Baltazar Childers MD [facility] CPT-74329 Level 4 Est. Patient 15:18:29 CDT Baltazar Childers MD [facility] CPT-87894 Level 3 Est. Patient 12:45:34 CDT Baltazar Childers MD [facility] CPT-19958 Level 3 Est. Patient 10:10:11 CDT Baltazar Childers MD [facility] CPT-82935 Level 3 Est. Patient 14:07:50 CDT Baltazar Childers MD [facility] CPT-07830 Level 4 Est. Patient 12:26:10 MOLDER Baltazar Childers MD [facility] CPT-40156 Level 4 Est. Patient 14:45:38 CDT Baltazar Childers MD [facility] CPT-77229 Level 4 New Patient 12:30:48 CDT Baltazar hinton MD [facility] Procedures Code Procedure Name Date Entry Date Standard Desc ription CPT-53002 Lipid - LAB USE ONLY 17:39:15 MOLDER 9 CPT-39187 HGBA1C - LAB USE ONLY 17:39:15 MOLDER CPT-88812 CMP - LAB USE ONLY 17:39:14 MOLDER CPT-72585 Venipuncture Draw Fee 17:39:14 MOLDER CPT-00042 First Vx - Ix admin via ID I M or jet injects without counseling by physician 16:55:17 MOLDER CPT-86265 Fluzone Quadrivalent Intramuscular Suspe nsion 0.5 ML 16:55:17 MOLDER CPT-93598 Renal Panel - LAB USE ONLY 17:39:20 CDT 201 10/31/07 CPT-87012 CBC - LAB USE ONLY 17:39:20 CDT CPT-56476 Venipuncture Draw Fee 17:39:20 CDT CPT-30057 Venipuncture Draw Fee 14:33:30 CDT CPT-85029 Renal Panel - LAB USE ONLY 14:33:30 CDT 201 10/31/07 CPT-78044 CBC - LAB USE ONLY 14:33:29 CDT CPT-76675 Venipuncture Draw Fee 14:50:21 MOLDER CPT-31219 Immunization Single Admin 17:35:35 CDT 2014 CPT-86926 Fluzone Quadrivalent preservative free ( >=3yrs.) 17:35:35 CDT CPT-46373 Venipuncture Draw Fee 12:10:27 MOLDER CPT-70588 Fluzone Quadrivalent Intramuscular Suspe nsion 0.5 ML 10:49:13 CDT CPT-70490 First Vx Component - Ix admi n via ID IM or jet inj without physician counseling 15:17:19 MOLDER CPT-36821 Pneumovax 23 15:17:19 MOLDER CPT-52516 Pneumovax 14:52:45 MOLDER CPT-59816 Venipuncture Draw Fee 14:06:30 MOLDER CPT-000 Give Appropriate Flu Vaccine 14:18:34 MOLDER 2 CPT-15825 Administration single or combination vac cine inc oral 14:46:00 MOLDER CPT-47598 Influenza split virus > age 3 14:46:00 MOLDER CPT-OV Office Visit 19:13:16 CDT CPT-91388 Zostavax 18:41:56 CDT CPT-35349 Administration single or combination vac cine inc oral 12:56:39 CDT CPT-45417 Zoster Vaccine (Zostavax) 12:56:39 CDT 2012 CPT-42957 Venipuncture Draw Fee 10:58:57 CDT CPT-69127 Sono pelvis non OB uterus ovaries cervix 17:45:04 CDT CPT-71663 Sono retroperitoneal complete kidneys an d bladder 17:14:36 CDT CPT-OV Office Visit 14:59:38 MOLDER CPT-J1070 Depo Testosterone 100 mg 14:50:13 CDT 03/05 CPT-38434 Abx/Therapy Injection 14:50:13 CDT CPT-83197 Administration single or combination vac cine inc oral 14:34:43 CDT CPT-19721 Influenza split virus > age 3 14:34:43 CDT CPT-J1070 Depo Testosterone 100 mg 17:37:13 CDT 01/11 CPT-76416 Abx/Therapy Injection 17:37:13 CDT CPT-16510 Venipuncture Draw Fee 16:30:13 CDT CPT-61298 Venipuncture Draw Fee 16:29:43 CDT CPT-J1070 Depo Testosterone 100 mg 14:45:38 CDT 01/11
--- OUTSIDE RECORDS SUMMARY | 2019-10-27 12:59 | XMS REPORT | Clinical Summary ---
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 Benign neoplasm of colon PERIPHERAL NEUROPATHY 356.9 [...] MISC Test twice a day LANCET S 59039368928 Active Baltazar Childers MD Active TRUEDRAW LANCING DEVICE MISC Test twice a day L ANCET DEVICES 12888267979 Active Baltazar Childers MD Active TRUETRACK TEST STRP Test twice a day GLUCOSE BLOO D 36430863754 Active Baltazar Childers MD Active TRUETRACK BLOOD GLUCOSE W/DEVICE KIT Test twice a day BLOOD GLUCOSE MONITORING SUPPL 90226679275 Active Bella Suarez QUILLER RUNNER Active HYDROCODONE-ACETAMINOPHEN 7.5-325 MG TABS Take 1 tab every 6-8 hour s PRN HYDROCODONE-ACETAMINOPHEN 88487457505 Active Baltazar Childers MD Active NORTRIPTYLINE HCL 50 MG CAPS 1 every night for neuropathy 4 NORTRIPTYLINE HCL 56635137293 Active Baltazar Childers MD Acti ve GABAPENTIN 300 MG CAPS 1 three times a day GABAPE NTIN 44027290754 Active Baltazar Childers MD Active GABAPENTIN 300 MG CAPS 1 po qd x 2 days, then 1 po BID x 2 d ays, then 1 po TID GABAPENTIN 24568144393 No Longer Active Baltazar silverman MD Active TRAMADOL HCL 50 MG TABS 1 twice a day as needed for pain TRAMADOL HCL 39258553582 Active Baltazar Childers MD Active NAPROXEN 500 MG TABS 1 tablet by mouth twice daily NAPROXEN 49438455113 No Longer Active Baltazar Childers MD Active PROAIR HFA 108 (90 BASE) MCG/ACT AERS 2 puffs four times a d ay as needed ALBUTEROL SULFATE 15399505337 Active Baltazar Childers MD Active DEPO-TESTOSTERONE 200 MG/ML OIL as directed RUFINO TOSTERONE CYPIONATE 62922207896 No Longer Active Baltazar Childers MD Active LIPITOR 20 MG TABS Take one by mouth daily in evening ATORVASTATIN CALCIUM 19197283897 No Longer Active Baltazar Childers MD Activ e CRESTOR 10 MG TABS 1 by mouth every day R OSUVASTATIN CALCIUM 51693905165 No Longer Active Baltazar Childers MD Activ e PHENTERMINE HCL 37.5 MG TABS Take one by mouth daily 2 PHENTERMINE HCL 56219733910 No Longer Active Baltazar Childers MD Activ e ROBAXIN-750 750 MG TABS Take one by mouth daily ME THOCARBAMOL 61447469971 Active Baltazar Childers MD Active TIZANIDINE HCL 4 MG TABS 1 daily as needed for muscle spasm 2011 TIZANIDINE HCL 01314409778 No Longer Active Dawna Salazar RN Active ONETOUCH ULTRA BLUE STRP Test twice a day GLUCO SE BLOOD 85588925101 Active Baltazar Childers MD Active [id number] 50-325-40 MG TABS 1 four time s a day as needed for heacache [id number] 86344720919 Active Baltazar Childers MD Active SUMATRIPTAN SUCCINATE 100 MG TABS 1 tablet by mouth at onset of migraine as needed SUMATRIPTAN SUCCINATE 57876311843 Active Baltazar barron MD Active LORATADINE 10 MG TABS Take one by mouth daily LORATADINE 36334798380 Active Baltazar Childers MD Active FUROSEMIDE 40 MG TABS Take one by mouth daily FUROSEMIDE 08777903624 Active Baltazar Childers MD Active LISINOPRIL 20 MG TABS Take one by mouth daily at bedtime LISINOPRIL 48398427211 Active Baltazar Childers MD Active OMEPRAZOLE 20 MG CPDR Take one by mouth daily OMEPRAZOLE 33397576914 Active Baltazar Childers MD Active HYDROXYZINE HCL 25 MG TABS Take one by mouth daily HYDROXYZINE HCL 53622438795 Active Baltazar Childers MD Active GLIPIZIDE 10 MG TABS 1 tablet by mouth twice daily GLIPIZIDE 40353433787 Active Baltazar Childers MD Active ALPRAZOLAM 1 MG TABS 1 tablet by mouth daily at bedtime for restles s leg ALPRAZOLAM 56479885453 Active Baltazar Childers MD Active METFORMIN HCL 1000 MG TABS Take one by mouth twice daily METFORMIN HCL 26334278427 Active Baltazar Childers MD Active TIZANIDINE HCL 4 MG TABS 1 daily as needed for muscle spasm 2011 TIZANIDINE HCL 4 MG TABS 753657 TIZANIDINE HCL Inactiv e PHENTERMINE HCL 37.5 MG TABS Take one by mouth daily 2 PHENTERMINE HCL 37.5 MG TABS 539554 PHENTERMINE HCL Inactive CRESTOR 10 MG TABS 1 by mouth every day C RESTOR 10 MG TABS ROSUVASTATIN CALCIUM Inactive LIPITOR 20 MG TABS Take one by mouth daily in evening LIPITOR 20 MG TABS 730096 ATORVASTATIN CALCIUM Inactive DEPO-TESTOSTERONE 200 MG/ML OIL as directed 8 DEPO-TESTOSTERONE 200 MG/ML OIL 335622 TESTOSTERONE CYPIONATE Inactive NAPROXEN 500 MG TABS 1 tablet by mouth twice daily 201 07/27/22 NAPROXEN 500 MG TABS 237965 NAPROXEN Inactive GABAPENTIN 300 MG CAPS 1 po qd x 2 days, then 1 po BID x 2 d ays, then 1 po TID GABAPENTIN 300 MG CAPS 647623 GABAPENTIN Inact amie Immunizations Vaccine Administration Date Value Standard Floyd cription pneumococcal immunization administered Pneumovax 23 [CVX33] pneumococcal polysaccharide vaccine, 23 valent Seasonal influenza vaccine, injectable, containing preservative, for > 3 years old (Afluria, FluLaval, Fluzone, Fluvirin, Fluarix, Agriflu(>= 18 yo)) Fluzone (>3 yrs.) [UGR977] Influenza, seasonal, inject able Seasonal influenza vaccine, injectable, containing preservative, for > 3 years old (Afluria, FluLaval, Fluzone, Fluvirin, Fluarix, Agriflu(>= 18 yo)) Fluzone (>3 yrs.) [HSP044] Influenza, seasonal, inject able Vital Signs Date [...] - Chem istry sodium, serum 140 mmol/L 406-704 1502/05/05 potassium, serum 4.9 mmol/L 3.5-5.2 chloride, serum [...] Panel - Chemistry sodium, serum 139 mmol/L 973-243 9907/01/20 potassium, serum 5.3 mmol/L 3.5-5.2 chloride, serum [...] mg/g mg/g{creat} 0-29 cholesterol, serum 319 mg/dL 885-272 0050/08/21 triglyceride, serum, fasting 546 mg/dL 30-200 HDL cholesterol, serum 39 mg/dL 32-96 LDL cholesterol, serum 167.00 mg/dL 5.00-130.00 hemoglobin A1C, blood, as % of total hemoglobin 7.7 % 4.3-6.0 sodium, serum 138 mmol/L 867-872 1394/08/21 potassium, serum 4.3 mmol/L 3.5-5.2 chloride, serum [...] 0-19 Encounters Code Encounter Date Provider Facility CPT-40388 Level 4 Est. Patient 11:29:55 CDT Baltazar Childers MD [facility] CPT-91913 Level 4 Est. Patient 14:15:19 CDT Baltazar Childers MD [facility] CPT-59202 Level 4 Est. Patient 12:20:13 CDT Baltazar Childers MD [facility] CPT-45591 Level 4 Est. Patient 14:52:45 WATER RECLAMATION SYSTEMS OPERATOR Baltazar Childers MD [facility] CPT-39008 Level 4 Est. Patient 14:18:34 WATER RECLAMATION SYSTEMS OPERATOR Baltazar Childers MD [facility] CPT-19177 Level 4 Est. Patient 15:18:29 CDT Baltazar Childers MD [facility] CPT-56476 Level 3 Est. Patient 12:45:34 CDT Baltazar Childers MD [facility] CPT-91562 Level 3 Est. Patient 10:10:11 CDT Baltazar Childers MD [facility] CPT-66096 Level 3 Est. Patient 14:07:50 CDT Baltazar Childers MD [facility] CPT-36567 Level 4 Est. Patient 12:26:10 WATER RECLAMATION SYSTEMS OPERATOR Baltazar Childers MD [facility] CPT-38740 Level 4 Est. Patient 14:45:38 CDT Baltazar Childers MD [facility] CPT-39651 Level 4 New Patient 12:30:48 CDT Baltazar hinton MD [facility] Procedures Code Procedure Name Date Entry Date Standard Desc ription CPT-59935 Venipuncture Draw Fee 12:10:27 WATER RECLAMATION SYSTEMS OPERATOR CPT-67411 Fluzone Quadrivalent Intramuscular Suspe nsion 0.5 ML 10:49:13 CDT CPT-79432 First Vx Component - Ix admi n via ID IM or jet inj without physician counseling 15:17:19 WATER RECLAMATION SYSTEMS OPERATOR CPT-29579 Pneumovax 15:17:19 WATER RECLAMATION SYSTEMS OPERATOR CPT-59195 Pneumovax 14:52:45 WATER RECLAMATION SYSTEMS OPERATOR CPT-74264 Venipuncture Draw Fee 14:06:30 WATER RECLAMATION SYSTEMS OPERATOR CPT-000 Give Appropriate Flu Vaccine 14:18:34 WATER RECLAMATION SYSTEMS OPERATOR 2 CPT-41646 Administration single or combination vac cine inc oral 14:46:00 WATER RECLAMATION SYSTEMS OPERATOR CPT-21906 Influenza split virus > age 3 14:46:00 WATER RECLAMATION SYSTEMS OPERATOR CPT-OV Office Visit 19:13:16 CDT CPT-39185 Zostavax 18:41:56 CDT CPT-59554 Administration single or combination vac cine inc oral 12:56:39 CDT CPT-07649 Zoster Vaccine (Zostavax) 12:56:39 CDT 2012 CPT-53714 Venipuncture Draw Fee 10:58:57 CDT CPT-90079 Sono pelvis non OB uterus ovaries cervix 17:45:04 CDT CPT-26581 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
--- OUTSIDE RECORDS SUMMARY | 2019-10-27 12:59 | XMS REPORT | Clinical Summary ---
Author Author Admin, Elba Lance Michelle [facility] Address Unknown Phone Unavailable Allergies, Adverse Reactions, Alerts Allergy Name Reaction Description Start Date Severity Status Pr ovider ASPIRIN Critical Active Baltaazr bynum MD PENICILLIN yeast infection Critical Active 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 [employer] MA[employer] Benign neoplasm of colon PERIPHERAL NEUROPATHY 356.9 Active Baltazar Nickerson MD Unspecified hereditary and idiopathic peripheral neuropathy PERSONAL HISTORY OF COLONIC POLYPS V12.72 Active 2 Lolis Thomas APRN Personal history of colonic polyps PARESTHESIA, HANDS 782.0 Active Baltazar Childres MD Disturbance of skin sensation FH DIABETES V18.0 Active Baltazar Childers MD Family history of diabetes mellitus ANEMIA 285.9 Active Baltazar Childers MD Anemia, unspecified RENAL INSUFFICIENCY 593.9 Active Baltazar bynum MD Unspecified disorder of kidney and ureter CAD 414.00 Active Gladys Arce LRT Co ronary atherosclerosis of unspecified type of vessel, port [place] or graft OTH NONSPC ABN FINDNG RAD&OTH [...] a day as needed 2 NAPROXEN SODIUM 45745506205 No Longer Active Baltazar Childers MD Active ATORVASTATIN CALCIUM 20 MG ORAL TABS Take 1 tab daily ATORVASTATIN CALCIUM 05053604130 Active KENDALL Juarez Active FUROSEMIDE 40 MG TABS Take one by mouth daily FUROSEMIDE 89363459987 Active Baltazar Childers MD Active LISINOPRIL 20 MG TABS Take one by mouth daily at bedtime LISINOPRIL 14378839094 Active KENDALL Juarez Active ONETOUCH ULTRA BLUE STRP Test twice a day GLUCO SE BLOOD 39271520474 No Longer Active Baltazar Childers MD Active TRUEPLUS LANCETS 33G MISC Test twice a day LANCET S 66061048996 Active KENDALL Juarez Active TRUEDRAW LANCING DEVICE MISC Test twice a day L ANCET DEVICES 73192028068 Active Baltazar Childers MD Active TRUETRACK TEST STRP Test twice a day GLUCOSE BLOO D 59389287907 Active Baltazar Childers MD Active TRUETRACK BLOOD GLUCOSE W/DEVICE KIT Test twice a day BLOOD GLUCOSE MONITORING SUPPL 24555688421 Active Baltazar Childers MD Activ e HYDROCODONE-ACETAMINOPHEN 7.5-325 MG TABS Take 1 tab every 6-8 hour s PRN HYDROCODONE-ACETAMINOPHEN 24165666817 Active Baltazar Childers MD Active NORTRIPTYLINE HCL 50 MG CAPS 1 every night for neuropathy 4 NORTRIPTYLINE HCL 35398983546 Active Baltazar Childers MD Acti ve GABAPENTIN 300 MG CAPS 1 three times a day GABAPE NTIN 29517657011 Active KENDALL Juarez Active GABAPENTIN 300 MG CAPS 1 po qd x 2 days, then 1 po BID x 2 d ays, then 1 po TID GABAPENTIN 60502831383 No Longer Active Baltazar silverman MD Active TRAMADOL HCL 50 MG TABS 1 twice a day as needed for pain TRAMADOL HCL 94334200808 Active Baltazar Childers MD Active NAPROXEN 500 MG TABS 1 tablet by mouth twice daily NAPROXEN 76614139151 No Longer Active Baltazar Childers MD Active PROAIR HFA 108 (90 BASE) MCG/ACT AERS 2 puffs four times a d ay as needed ALBUTEROL SULFATE 85126356796 Active KENDALL Juarez Active DEPO-TESTOSTERONE 200 MG/ML OIL as directed RUFINO TOSTERONE CYPIONATE 95070605410 No Longer Active Baltazar Childers MD Active LIPITOR 20 MG TABS Take one by mouth daily in evening ATORVASTATIN CALCIUM 74464305434 No Longer Active Baltazar Childers MD Activ e CRESTOR 10 MG TABS 1 by mouth every day R OSUVASTATIN CALCIUM 09576169330 No Longer Active Baltazar Childers MD Activ e PHENTERMINE HCL 37.5 MG TABS Take one by mouth daily 2 PHENTERMINE HCL 42035690284 No Longer Active Baltazar Childers MD Activ e ROBAXIN-750 750 MG TABS Take one by mouth daily ME THOCARBAMOL 49549599953 Active Baltazar Childers MD Active TIZANIDINE HCL 4 MG TABS 1 daily as needed for muscle spasm 2011 TIZANIDINE HCL 93423228989 No Longer Active Dawna Salazar RN Active [id number] 50-325-40 MG TABS 1 four time s a day as needed for heacache [id number] 99989709263 Active KENDALL Juarez Active SUMATRIPTAN SUCCINATE 100 MG TABS 1 tablet by mouth at onset of migraine as needed SUMATRIPTAN SUCCINATE 00253772203 Active KENDALL Juarez Active LORATADINE 10 MG TABS Take one by mouth daily LORATADINE 38919188116 Active Baltazar Childers MD Active OMEPRAZOLE 20 MG CPDR Take one by mouth daily OMEPRAZOLE 36685384959 Active Baltazar Childers MD Active HYDROXYZINE HCL 25 MG TABS Take one by mouth daily HYDROXYZINE HCL 46102275258 Active Baltazar Childers MD Active GLIPIZIDE 10 MG TABS 1 tablet by mouth twice daily GLIPIZIDE 61767300893 Active KENDALL Juarez Active ALPRAZOLAM 1 MG TABS 1 tablet by mouth daily at bedtime for restles s leg ALPRAZOLAM 33488514380 Active Baltazar Childers MD Active METFORMIN HCL 1000 MG TABS Take one by mouth twice daily METFORMIN HCL 40503052861 Active Baltazar Childers MD Active TIZANIDINE HCL 4 MG TABS 1 daily as needed for muscle spasm 2011 TIZANIDINE HCL 4 MG TABS 387368 TIZANIDINE HCL Inactiv e PHENTERMINE HCL 37.5 MG TABS Take one by mouth daily 2 PHENTERMINE HCL 37.5 MG TABS 048876 PHENTERMINE HCL Inactive CRESTOR 10 MG TABS 1 by mouth every day C RESTOR 10 MG TABS ROSUVASTATIN CALCIUM Inactive LIPITOR 20 MG TABS Take one by mouth daily in evening LIPITOR 20 MG TABS 070652 ATORVASTATIN CALCIUM Inactive DEPO-TESTOSTERONE 200 MG/ML OIL as directed 8 DEPO-TESTOSTERONE 200 MG/ML OIL 547103 TESTOSTERONE CYPIONATE Inactive NAPROXEN 500 MG TABS 1 tablet by mouth twice daily 201 07/27/22 NAPROXEN 500 MG TABS 481524 NAPROXEN Inactive GABAPENTIN 300 MG CAPS 1 po qd x 2 days, then 1 po BID x 2 d ays, then 1 po TID GABAPENTIN 300 MG CAPS 111127 GABAPENTIN Inact amie ONETOUCH ULTRA BLUE STRP Test twice a day ONETOUCH ULTRA BLUE STRP GLUCOSE BLOOD Inactive NAPROXEN SODIUM 220 MG ORAL TABS 1 three times a day as needed 2 NAPROXEN SODIUM 220 MG ORAL TABS 236604 NAPROXEN SODIUM Inactive Immunizations Vaccine Administration Date Value Standard Floyd cription pneumococcal immunization administered Pneumovax 23 [CVX33] pneumococcal polysaccharide vaccine, 23 valent Seasonal influenza vaccine, injectable, containing preservative, for > 3 years old (Afluria, FluLaval, Fluzone, Fluvirin, Fluarix, Agriflu(>= 18 yo)) Fluzone (>3 yrs.) [[id number]] Influenza, seasonal, inject able Seasonal influenza vaccine, injectable, containing preservative, for > 3 years old (Afluria, FluLaval, Fluzone, Fluvirin, Fluarix, Agriflu(>= 18 yo)) Fluzone (>3 yrs.) [[id number]] Influenza, seasonal, inject able Vital Signs Date [...] 7.9 % 4.3-6.0 sodium, serum 139 mmol/L 393-412 9076/02/04 potassium, serum 5.4 mmol/L 3.5-5.2 chloride, serum [...] Panel - Chemistry sodium, serum 138 mmol/L 263-639 9903/11/23 carbon dioxide, venous blood 32.4 mmol/L 21.0-32 .0 potassium, serum 5.7 mmol/L 3.5-5.2 chloride, serum 98 mmol/L 98-107 blood glucose 136 mg/dL 65-110 urea nitrogen, blood 18 mg/dL 7-18 creatinine, serum 1.71 mg/dL 0.55-1.30 alanine aminotransferase (SGPT), serum 71 U/L 12-78 aspartate aminotransferase (SGOT), serum 34 U/L 15-37 calcium, serum 9.4 mg/dL 8.5-10.1 bilirubin, serum, total 0.40 mg/dL 0.00-1.00 cholesterol, serum 405 mg/dL 614-423 9465/11/23 triglyceride, serum, fasting 709 mg/dL 30-200 HDL [...] mg/dL Encounters Code Encounter Date Provider Facility CPT-49104 Level 4 Est. Patient 16:01:48 CDT Baltazar Childers MD [facility] CPT-91883 Level 4 Est. Patient 16:54:07 PLANNING DIRECTOR Baltazar Childers MD [facility] CPT-53027 Level 4 Est. Patient 15:42:12 CDT Baltazar Childers MD [facility] CPT-02572 Level 4 Est. Patient 11:29:55 CDT Baltazar Childers MD [facility] CPT-13094 Level 4 Est. Patient 14:15:19 CDT Baltazar Childers MD [facility] CPT-26382 Level 4 Est. Patient 12:20:13 CDT Baltazar Childers MD [facility] CPT-56501 Level 4 Est. Patient 14:52:45 PLANNING DIRECTOR Baltazar Childers MD [facility] CPT-65076 Level 4 Est. Patient 14:18:34 PLANNING DIRECTOR Baltazar Childers MD [facility] CPT-32899 Level 4 Est. Patient 15:18:29 CDT Baltazar Childers MD [facility] CPT-43885 Level 3 Est. Patient 12:45:34 CDT Baltazar Childers MD [facility] CPT-01907 Level 3 Est. Patient 10:10:11 CDT Baltazar Childers MD [facility] CPT-26494 Level 3 Est. Patient 14:07:50 CDT Baltazar Childers MD [facility] CPT-73932 Level 4 Est. Patient 12:26:10 PLANNING DIRECTOR Baltazar Childres MD [facility] CPT-52846 Level 4 Est. Patient 14:45:38 CDT Baltazar Childers MD [facility] CPT-26965 Level 4 New Patient 12:30:48 CDT Baltazar hinton MD [facility] Procedures Code Procedure Name Date Entry Date Standard Desc ription CPT-09666 Venipuncture Draw Fee 14:50:21 PLANNING DIRECTOR CPT-41199 Immunization Single Admin 17:35:35 CDT 2014 CPT-81574 Fluzone Quadrivalent preservative free ( >=3yrs.) 17:35:35 CDT CPT-30090 Venipuncture Draw Fee 12:10:27 PLANNING DIRECTOR CPT-95448 Fluzone Quadrivalent Intramuscular Suspe nsion 0.5 ML 10:49:13 CDT CPT-89090 First Vx Component - Ix admi n via ID IM or jet inj without physician counseling 15:17:19 PLANNING DIRECTOR CPT-84914 Pneumovax 15:17:19 PLANNING DIRECTOR CPT-07190 Pneumovax 14:52:45 PLANNING DIRECTOR CPT-70083 Venipuncture Draw Fee 14:06:30 PLANNING DIRECTOR CPT-000 Give Appropriate Flu Vaccine 14:18:34 PLANNING DIRECTOR 2 CPT-60787 Administration single or combination vac cine inc oral 14:46:00 PLANNING DIRECTOR CPT-32755 Influenza split virus > age 3 14:46:00 PLANNING DIRECTOR CPT-OV Office Visit 19:13:16 CDT CPT-77112 Zostavax 18:41:56 CDT CPT-25331 Administration single or combination vac cine inc oral 12:56:39 CDT CPT-27548 Zoster Vaccine (Zostavax) 12:56:39 CDT 2012 CPT-28206 Venipuncture Draw Fee 10:58:57 CDT CPT-88389 Sono pelvis non OB uterus ovaries cervix 17:45:04 CDT CPT-41605 Sono retroperitoneal complete kidneys an d bladder 17:14:36 CDT CPT-OV Office Visit 14:59:38 PLANNING DIRECTOR CPT-J1070 Depo Testosterone 100 mg 14:50:13 CDT 03/05 CPT-13441 Abx/Therapy Injection 14:50:13 CDT CPT-79278 Administration single or combination vac cine inc oral 14:34:43 CDT CPT-88823 Influenza split virus > age 3 14:34:43 CDT CPT-J1070 Depo Testosterone 100 mg 17:37:13 CDT 01/11 CPT-26816 Abx/Therapy Injection 17:37:13 CDT CPT-31429 Venipuncture Draw Fee 16:30:13 CDT CPT-59039 Venipuncture Draw Fee 16:29:43 CDT CPT-J1070 Depo Testosterone 100 mg 14:45:38 CDT 01/11
--- OUTSIDE RECORDS SUMMARY | 2019-10-27 12:59 | XMS REPORT | Clinical Summary ---
Author Author Abhishek, Elba Lance [facility] Address Unknown 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 P[employer] MAKER Benign neoplasm of colon PERIPHERAL NEUROPATHY [...] ronary atherosclerosis of unspecified type of vessel, [place] or graft OTH NONSPC ABN FINDNG RAD&OTH [...] Test twice a day GLUCO SE BLOOD 04513500229 No Longer Active Baltazar Childers MD Active TRUEPLUS LANCETS 33G MISC Test twice a day LANCET S 27971134334 Active Baltazar Childers MD Active TRUEDRAW LANCING DEVICE MISC Test twice a day L ANCET DEVICES 25820658709 Active Baltazar Childers MD Active TRUETRACK TEST STRP Test twice a day GLUCOSE BLOO D 10271391004 Active Baltazar Childers MD Active TRUETRACK BLOOD GLUCOSE W/DEVICE KIT Test twice a day BLOOD GLUCOSE MONITORING SUPPL 02045572436 Active Baltazar Childers MD Activ e HYDROCODONE-ACETAMINOPHEN 7.5-325 MG TABS Take 1 tab every 6-8 hour s PRN HYDROCODONE-ACETAMINOPHEN 99947296237 Active Baltazar Childers MD Active NORTRIPTYLINE HCL 50 MG CAPS 1 every night for neuropathy 4 NORTRIPTYLINE HCL 08962523764 Active Baltazar Childers MD Acti ve GABAPENTIN 300 MG CAPS 1 three times a day GABAPE NTIN 50175114848 Active Baltazar Childers MD Active GABAPENTIN 300 MG CAPS 1 po qd x 2 days, then 1 po BID x 2 d ays, then 1 po TID GABAPENTIN 93634448275 No Longer Active Baltazar silverman MD Active TRAMADOL HCL 50 MG TABS 1 twice a day as needed for pain TRAMADOL HCL 51489226862 Active Baltazar Childers MD Active NAPROXEN 500 MG TABS 1 tablet by mouth twice daily NAPROXEN 48770851681 No Longer Active Baltazar Childers MD Active PROAIR HFA 108 (90 BASE) MCG/ACT AERS 2 puffs four times a d ay as needed ALBUTEROL SULFATE 82857142009 Active Baltazar Childers MD Active DEPO-TESTOSTERONE 200 MG/ML OIL as directed RUFINO TOSTERONE CYPIONATE 13470736975 No Longer Active Baltazar Childers MD Active LIPITOR 20 MG TABS Take one by mouth daily in evening ATORVASTATIN CALCIUM 86980676855 No Longer Active Baltazar Childers MD Activ e CRESTOR 10 MG TABS 1 by mouth every day R OSUVASTATIN CALCIUM 75408471213 No Longer Active Baltazar Childers MD Activ e PHENTERMINE HCL 37.5 MG TABS Take one by mouth daily 2 PHENTERMINE HCL 05060598942 No Longer Active Baltazar Childers MD Activ e ROBAXIN-750 750 MG TABS Take one by mouth daily ME THOCARBAMOL 07807790491 Active Baltazar Childers MD Active TIZANIDINE HCL 4 MG TABS 1 daily as needed for muscle spasm 2011 TIZANIDINE HCL 97356295860 No Longer Active Dawna Salazar RN Active [id number] 50-325-40 MG TABS 1 four time s a day as needed for heacache [id number] 87192393038 Active Baltazar Childers MD Active SUMATRIPTAN SUCCINATE 100 MG TABS 1 tablet by mouth at onset of migraine as needed SUMATRIPTAN SUCCINATE 52484713647 Active Baltazar bynum MD Active LORATADINE 10 MG TABS Take one by mouth daily LORATADINE 98428381065 Active Baltazar Childers MD Active FUROSEMIDE 40 MG TABS Take one by mouth daily FUROSEMIDE 46536513950 Active Baltazar Childers MD Active LISINOPRIL 20 MG TABS Take one by mouth daily at bedtime LISINOPRIL 51456892273 Active Baltazar Childers MD Active OMEPRAZOLE 20 MG CPDR Take one by mouth daily OMEPRAZOLE 30089638422 Active Baltazar Childers MD Active HYDROXYZINE HCL 25 MG TABS Take one by mouth daily HYDROXYZINE HCL 70829097115 Active Baltazra Childers MD Active GLIPIZIDE 10 MG TABS 1 tablet by mouth twice daily GLIPIZIDE 68028843726 Active Baltazar Childers MD Active ALPRAZOLAM 1 MG TABS 1 tablet by mouth daily at bedtime for restles s leg ALPRAZOLAM 40271256646 Active Baltazar Childers MD Active METFORMIN HCL 1000 MG TABS Take one by mouth twice daily METFORMIN HCL 64212133207 Active Baltazar Childers MD Active TIZANIDINE HCL 4 MG TABS 1 daily as needed for muscle spasm 2011 TIZANIDINE HCL 4 MG TABS 513397 TIZANIDINE HCL Inactiv e PHENTERMINE HCL 37.5 MG TABS Take one by mouth daily 2 PHENTERMINE HCL 37.5 MG TABS 881241 PHENTERMINE HCL Inactive CRESTOR 10 MG TABS 1 by mouth every day C RESTOR 10 MG TABS ROSUVASTATIN CALCIUM Inactive LIPITOR 20 MG TABS Take one by mouth daily in evening LIPITOR 20 MG TABS 661077 ATORVASTATIN CALCIUM Inactive DEPO-TESTOSTERONE 200 MG/ML OIL as directed 8 DEPO-TESTOSTERONE 200 MG/ML OIL 384917 TESTOSTERONE CYPIONATE Inactive NAPROXEN 500 MG TABS 1 tablet by mouth twice daily 201 07/27/22 NAPROXEN 500 MG TABS 434450 NAPROXEN Inactive GABAPENTIN 300 MG CAPS 1 po qd x 2 days, then 1 po BID x 2 d ays, then 1 po TID GABAPENTIN 300 MG CAPS 509371 GABAPENTIN Inact amie ONETOUCH ULTRA BLUE STRP Test twice a day ONETOUCH ULTRA BLUE STRP GLUCOSE BLOOD Inactive Immunizations Vaccine Administration Date Value Standard Floyd cription pneumococcal immunization administered Pneumovax 23 [CVX33] pneumococcal polysaccharide vaccine, 23 valent Seasonal influenza vaccine, injectable, containing preservative, for > 3 years old (Afluria, FluLaval, Fluzone, Fluvirin, Fluarix, Agriflu(>= 18 yo)) Fluzone (>3 yrs.) [QHC888] Influenza, seasonal, inject able Seasonal influenza vaccine, injectable, containing preservative, for > 3 years old (Afluria, FluLaval, Fluzone, Fluvirin, Fluarix, Agriflu(>= 18 yo)) Fluzone (>3 yrs.) [MYK065] Influenza, seasonal, inject able Vital Signs Date [...] - Chem istry sodium, serum 140 mmol/L 448-117 7415/05/05 potassium, serum 4.9 mmol/L 3.5-5.2 chloride, serum [...] Panel - Chemistry sodium, serum 139 mmol/L 566-449 4240/01/20 potassium, serum 5.3 mmol/L 3.5-5.2 chloride, serum [...] mg/g mg/g{creat} 0-29 cholesterol, serum 319 mg/dL 544-607 0544/08/21 triglyceride, serum, fasting 546 mg/dL 30-200 HDL cholesterol, serum 39 mg/dL 32-96 LDL cholesterol, serum 167.00 mg/dL 5.00-130.00 hemoglobin A1C, blood, as % of total hemoglobin 7.7 % 4.3-6.0 sodium, serum 138 mmol/L 019-689 8934/08/21 potassium, serum 4.3 mmol/L 3.5-5.2 chloride, serum [...] 0-19 Encounters Code Encounter Date Provider Facility CPT-48163 Level 4 Est. Patient 11:29:55 CDT Baltazar Childers MD [facility] CPT-04215 Level 4 Est. Patient 14:15:19 CDT Baltazar Childers MD [facility] CPT-52554 Level 4 Est. Patient 12:20:13 CDT Baltazar Childers MD [facility] CPT-13676 Level 4 Est. Patient 14:52:45 OYSTER HARVESTER Baltazar Childers MD [facility] CPT-36490 Level 4 Est. Patient 14:18:34 OYSTER HARVESTER Baltazar Childers MD [facility] CPT-04907 Level 4 Est. Patient 15:18:29 CDT Baltazar Childers MD [facility] CPT-28593 Level 3 Est. Patient 12:45:34 CDT Baltazar Childers MD [facility] CPT-12291 Level 3 Est. Patient 10:10:11 CDT Baltazar Childers MD [facility] CPT-12989 Level 3 Est. Patient 14:07:50 CDT Baltazar Childers MD [facility] CPT-23203 Level 4 Est. Patient 12:26:10 OYSTER HARVESTER Baltazar Childers MD [facility] CPT-12794 Level 4 Est. Patient 14:45:38 CDT Baltazar Childers MD [facility] CPT-90822 Level 4 New Patient 12:30:48 CDT Baltazar hinton MD [facility] Procedures Code Procedure Name Date Entry Date Standard Desc ription CPT-85450 Venipuncture Draw Fee 12:10:27 OYSTER HARVESTER CPT-28376 Fluzone Quadrivalent Intramuscular Suspe nsion 0.5 ML 10:49:13 CDT CPT-16619 First Vx Component - Ix admi n via ID IM or jet inj without physician counseling 15:17:19 OYSTER HARVESTER CPT-78281 Pneumovax 15:17:19 OYSTER HARVESTER CPT-02208 Pneumovax 14:52:45 OYSTER HARVESTER CPT-59292 Venipuncture Draw Fee 14:06:30 OYSTER HARVESTER CPT-000 Give Appropriate Flu Vaccine 14:18:34 OYSTER HARVESTER 2 CPT-29694 Administration single or combination vac cine inc oral 14:46:00 OYSTER HARVESTER CPT-17160 Influenza split virus > age 3 14:46:00 OYSTER HARVESTER CPT-OV Office Visit 19:13:16 CDT CPT-33234 Zostavax 18:41:56 CDT CPT-98785 Administration single or combination vac cine inc oral 12:56:39 CDT CPT-37598 Zoster Vaccine (Zostavax) 12:56:39 CDT 2012 CPT-79255 Venipuncture Draw Fee 10:58:57 CDT CPT-95068 Sono pelvis non OB uterus ovaries cervix 17:45:04 CDT CPT-33338 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
--- OUTSIDE RECORDS SUMMARY | 2019-10-27 12:59 | XMS REPORT | Clinical Summary ---
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 Benign neoplasm of colon PERIPHERAL NEUROPATHY [...] ronary atherosclerosis of unspecified type of vessel, [place] or graft OTH NONSPC ABN FINDNG RAD&OTH [...] day to coat the stomach 2015 SUCRALFATE [id number] No Longer Active Baltazar Childers MD Active PEN NEEDLES 31G X 6 MM MISC use 1 daily INSULIN PEN NEEDLE 00984879820 Active Bella Suarez RATTLING MACHINE TENDER Active TOUJEO SOLOSTAR 300 UNIT/ML SC SOPN 10 units SC daily INSULIN GLARGINE 09117649645 No Longer Active Martita Godinez RMA Active LANTUS SOLOSTAR 100 UNIT/ML SC SOPN 10 units SC daily INSULIN GLARGINE 04797616685 Active Baltazar Childers MD Active NAPROXEN SODIUM 220 MG ORAL TABS 1 three times a day as needed 2 NAPROXEN SODIUM 68355591624 No Longer Active Baltazar Childers MD Active ATORVASTATIN CALCIUM 20 MG ORAL TABS Take 1 tab daily ATORVASTATIN CALCIUM 30902867044 Active Baltazar Childers MD Active FUROSEMIDE 40 MG TABS Take one by mouth daily FUROSEMIDE 13601475325 Active Baltazar Childers MD Active LISINOPRIL 20 MG TABS Take one by mouth daily at bedtime LISINOPRIL 78029230801 Active KENDALL Juarez Active ONETOUCH ULTRA BLUE STRP Test twice a day GLUCO SE BLOOD 97705625857 No Longer Active Baltazar Childers MD Active TRUEPLUS LANCETS 33G MISC Test twice a day LANCET S 45408915231 Active KENDALL Juarez Active TRUEDRAW LANCING DEVICE MISC Test twice a day L ANCET DEVICES 48707558943 Active Baltazar Childers MD Active TRUETRACK TEST STRP Test twice a day GLUCOSE BLOO D 81514672103 Active KENDALL Juarez Active TRUETRACK BLOOD GLUCOSE W/DEVICE KIT Test twice a day BLOOD GLUCOSE MONITORING SUPPL 60326728101 Active Baltazar Childers MD Activ e HYDROCODONE-ACETAMINOPHEN 7.5-325 MG TABS Take 1 tab every 6-8 hour s PRN HYDROCODONE-ACETAMINOPHEN 08900014883 Active Shonna Parker APRN Active NORTRIPTYLINE HCL 50 MG CAPS 1 every night for neuropathy 4 NORTRIPTYLINE HCL 50901281191 Active Baltazar Childers MD Acti ve GABAPENTIN 300 MG CAPS 1 three times a day GABAPE NTIN 77117752677 Active Baltazar Childers MD Active GABAPENTIN 300 MG CAPS 1 po qd x 2 days, then 1 po BID x 2 d ays, then 1 po TID GABAPENTIN 73377386426 No Longer Active Baltazar silverman MD Active TRAMADOL HCL 50 MG TABS 1 twice a day as needed for pain TRAMADOL HCL 27844948708 Active Shonna Parker APRN Active NAPROXEN 500 MG TABS 1 tablet by mouth twice daily NAPROXEN 38106779352 No Longer Active Baltazar Childers MD Active PROAIR HFA 108 (90 BASE) MCG/ACT AERS 2 puffs four times a d ay as needed ALBUTEROL SULFATE 26671216231 Active KENDALL Juarez Active DEPO-TESTOSTERONE 200 MG/ML OIL as directed RUFINO TOSTERONE CYPIONATE 32249082823 No Longer Active Baltazar Childers MD Active LIPITOR 20 MG TABS Take one by mouth daily in evening ATORVASTATIN CALCIUM 17506098815 No Longer Active Baltazar Childers MD Activ e CRESTOR 10 MG TABS 1 by mouth every day R OSUVASTATIN CALCIUM 39426496568 No Longer Active Baltazar Childers MD Activ e PHENTERMINE HCL 37.5 MG TABS Take one by mouth daily 2 PHENTERMINE HCL 45371685805 No Longer Active Baltazar Childers MD Activ e ROBAXIN-750 750 MG TABS Take one by mouth daily ME THOCARBAMOL 29357716350 Active Baltazar Childers MD Active TIZANIDINE HCL 4 MG TABS 1 daily as needed for muscle spasm 2011 TIZANIDINE HCL 21939706868 No Longer Active Dawna Salazar RN Active [id number] 50-325-40 MG TABS 1 four time s a day as needed for heacache [id number] 55232503205 Active Shonna Parker APRN Active SUMATRIPTAN SUCCINATE 100 MG TABS 1 tablet by mouth at onset of migraine as needed SUMATRIPTAN SUCCINATE 76864122449 Active Shonna richey APRN Active LORATADINE 10 MG TABS Take one by mouth daily LORATADINE 86134066899 Active Baltazar Childers MD Active OMEPRAZOLE 20 MG CPDR Take one by mouth daily OMEPRAZOLE 68554283740 Active KENDALL Juarez Active HYDROXYZINE HCL 25 MG TABS Take one by mouth daily HYDROXYZINE HCL 31320736992 Active Baltazar Childers MD Active GLIPIZIDE 10 MG TABS 1 tablet by mouth twice daily GLIPIZIDE 88453903452 Active Baltazar Childers MD Active ALPRAZOLAM 1 MG TABS 1 tablet by mouth daily at bedtime for restles s leg ALPRAZOLAM 75270186394 Active Baltazar Childers MD Active METFORMIN HCL 1000 MG TABS Take one by mouth twice daily METFORMIN HCL 10357694366 Active Baltazar Childers MD Active TIZANIDINE HCL 4 MG TABS 1 daily as needed for muscle spasm 2011 TIZANIDINE HCL 4 MG TABS 366664 TIZANIDINE HCL Inactiv e PHENTERMINE HCL 37.5 MG TABS Take one by mouth daily 2 PHENTERMINE HCL 37.5 MG TABS 030950 PHENTERMINE HCL Inactive CRESTOR 10 MG TABS 1 by mouth every day C RESTOR 10 MG TABS 092862 ROSUVASTATIN CALCIUM Inactive LIPITOR 20 MG TABS Take one by mouth daily in evening LIPITOR 20 MG TABS 049205 ATORVASTATIN CALCIUM Inactive DEPO-TESTOSTERONE 200 MG/ML OIL as directed 8 DEPO-TESTOSTERONE 200 MG/ML OIL 504499 TESTOSTERONE CYPIONATE Inactive NAPROXEN 500 MG TABS 1 tablet by mouth twice daily 201 07/27/22 NAPROXEN 500 MG TABS 261789 NAPROXEN Inactive GABAPENTIN 300 MG CAPS 1 po qd x 2 days, then 1 po BID x 2 d ays, then 1 po TID GABAPENTIN 300 MG CAPS 133312 GABAPENTIN Inact amie ONETOUCH ULTRA BLUE STRP Test twice a day ONETOUCH ULTRA BLUE STRP GLUCOSE BLOOD Inactive NAPROXEN SODIUM 220 MG ORAL TABS 1 three times a day as needed 2 NAPROXEN SODIUM 220 MG ORAL TABS 324634 NAPROXEN SODIUM Inactive TOUJEO SOLOSTAR 300 UNIT/ML SC SOPN 10 units SC daily TOUJEO SOLOSTAR 300 UNIT/ML SC SOPN INSULIN GLARGINE Inac tive SUCRALFATE 1 GM TABS 1 four times a day to coat the stomach 2015 SUCRALFATE 1 GM TABS 577160 SUCRALFATE Inactive Immunizations Vaccine Administration Date Value Standard Floyd cription pneumococcal immunization administered Pneumovax 23 [CVX33] pneumococcal polysaccharide vaccine, 23 valent Seasonal influenza vaccine, injectable, containing preservative, for > 3 years old (Afluria, FluLaval, Fluzone, Fluvirin, Fluarix, Agriflu(>= 18 yo)) Fluzone (>3 yrs.) [[id number]] Influenza, seasonal, inject able Seasonal influenza vaccine, injectable, containing preservative, for > 3 years old (Afluria, FluLaval, Fluzone, Fluvirin, Fluarix, Agriflu(>= 18 yo)) Fluzone (>3 yrs.) [[id number]] Influenza, seasonal, inject able Vital Signs Date [...] C - Chemistry sodium, serum 139 mmol/L 527-357 2237/07/07 potassium, serum 4.5 mmol/L 3.5-5.2 chloride, serum [...] Panel - Chemistry sodium, serum 143 mmol/L 335-352 0496/12/19 carbon dioxide, venous blood 32.5 mmol/L 21.0-32 .0 potassium, serum 4.9 mmol/L 3.5-5.2 chloride, serum 101 mmol/L 98-107 blood glucose 129 mg/dL 65-110 urea nitrogen, blood 18 mg/dL 7-18 creatinine, serum 1.79 mg/dL 0.55-1.30 alanine aminotransferase (SGPT), serum 34 U/L 12-78 aspartate aminotransferase (SGOT), serum 26 U/L 15-37 calcium, serum 8.9 mg/dL 8.5-10.1 bilirubin, serum, total 0.30 mg/dL 0.00-1.00 cholesterol, serum 214 mg/dL 235-071 2710/12/19 triglyceride, serum, fasting 351 mg/dL 30-200 HDL cholesterol, serum 52 mg/dL 32-96 LDL cholesterol, serum 92 mg/dL 0-130 Lab Report: HGBA1C - Chemistry hemoglobin A1C, blood, as % of total hemoglobin 7.3 % 4.3-6.0 Lab Report: Renal Panel - Chemistry sodium, serum 141 mmol/L 421-551 6075/08/08 potassium, serum 4.9 mmol/L 3.5-5.2 chloride, serum 101 mmol/L 98-107 carbon dioxide, venous blood 34.1 mmol/L 21.0-32 .0 creatinine, serum 1.98 mg/dL 0.55-1.30 blood glucose 193 mg/dL 65-110 urea nitrogen, blood 30 mg/dL 7-18 calcium, serum 9.8 mg/dL 8.5-10.1 Encounters Code Encounter Date Provider Facility CPT-63194 Level 4 Est. Patient 15:44:38 CDT Shonna Parker RATTLING MACHINE TENDER [facility] CPT-93852 Level 4 Est. Patient 11:34:17 CDT Baltazar Childers MD [facility] CPT-62823 Level 3 Est. Patient 16:40:40 CDT Baltazar Childers MD [facility] CPT-14223 Level 4 Est. Patient 10:41:24 CDT Baltazar Childers MD [facility] CPT-21614 Level 4 Est. Patient 16:01:48 CDT Baltazar Childers MD [facility] CPT-15727 Level 4 Est. Patient 16:54:07 BUFFET MANAGER Baltazar Childers MD [facility] CPT-77223 Level 4 Est. Patient 15:42:12 CDT Baltazar Childers MD [facility] CPT-01535 Level 4 Est. Patient 11:29:55 CDT Baltazar Childers MD [facility] CPT-33607 Level 4 Est. Patient 14:15:19 CDT Baltazar Childers MD [facility] CPT-33802 Level 4 Est. Patient 12:20:13 CDT Baltazar Childers MD [facility] CPT-59217 Level 4 Est. Patient 14:52:45 BUFFET MANAGER Baltazar Childers MD [facility] CPT-78485 Level 4 Est. Patient 14:18:34 BUFFET MANAGER Baltazar Childers MD [facility] CPT-39795 Level 4 Est. Patient 15:18:29 CDT Baltazar Childers MD [facility] CPT-61106 Level 3 Est. Patient 12:45:34 CDT Baltazar Childers MD [facility] CPT-29305 Level 3 Est. Patient 10:10:11 CDT Baltazar Childers MD [facility] CPT-45847 Level 3 Est. Patient 14:07:50 CDT Baltazar Childers MD [facility] CPT-76674 Level 4 Est. Patient 12:26:10 BUFFET MANAGER Baltazar Childers MD [facility] CPT-14290 Level 4 Est. Patient 14:45:38 CDT Baltazar Childers MD [facility] CPT-02242 Level 4 New Patient 12:30:48 CDT Baltazar hinton MD [facility] Procedures Code Procedure Name Date Entry Date Standard Desc ription CPT-49505 Lipid - LAB USE ONLY 17:39:15 BUFFET MANAGER 9 CPT-92306 HGBA1C - LAB USE ONLY 17:39:15 BUFFET MANAGER CPT-19373 CMP - LAB USE ONLY 17:39:14 BUFFET MANAGER CPT-28087 Venipuncture Draw Fee 17:39:14 BUFFET MANAGER CPT-56683 First Vx - Ix admin via ID I M or jet injects without counseling by physician 16:55:17 BUFFET MANAGER CPT-92998 Fluzone Quadrivalent Intramuscular Suspe nsion 0.5 ML 16:55:17 BUFFET MANAGER CPT-46952 Renal Panel - LAB USE ONLY 17:39:20 CDT 201 10/31/07 CPT-91172 CBC - LAB USE ONLY 17:39:20 CDT CPT-44689 Venipuncture Draw Fee 17:39:20 CDT CPT-88193 Venipuncture Draw Fee 14:33:30 CDT CPT-26250 Renal Panel - LAB USE ONLY 14:33:30 CDT 201 10/31/07 CPT-41377 CBC - LAB USE ONLY 14:33:29 CDT CPT-08922 Venipuncture Draw Fee 14:50:21 BUFFET MANAGER CPT-13491 Immunization Single Admin 17:35:35 CDT 2014 CPT-77017 Fluzone Quadrivalent preservative free ( >=3yrs.) 17:35:35 CDT CPT-64752 Venipuncture Draw Fee 12:10:27 BUFFET MANAGER CPT-48298 Fluzone Quadrivalent Intramuscular Suspe nsion 0.5 ML 10:49:13 CDT CPT-02091 First Vx Component - Ix admi n via ID IM or jet inj without physician counseling 15:17:19 BUFFET MANAGER CPT-02636 Pneumovax 23 15:17:19 BUFFET MANAGER CPT-55716 Pneumovax 14:52:45 BUFFET MANAGER CPT-33798 Venipuncture Draw Fee 14:06:30 BUFFET MANAGER CPT-000 Give Appropriate Flu Vaccine 14:18:34 BUFFET MANAGER 2 CPT-28011 Administration single or combination vac cine inc oral 14:46:00 BUFFET MANAGER CPT-40494 Influenza split virus > age 3 14:46:00 BUFFET MANAGER CPT-OV Office Visit 19:13:16 CDT CPT-38340 Zostavax 18:41:56 CDT CPT-97209 Administration single or combination vac cine inc oral 12:56:39 CDT CPT-94832 Zoster Vaccine (Zostavax) 12:56:39 CDT 2012 CPT-16278 Venipuncture Draw Fee 10:58:57 CDT CPT-36229 Sono pelvis non OB uterus ovaries cervix 17:45:04 CDT CPT-24002 Sono retroperitoneal complete kidneys an d bladder 17:14:36 CDT CPT-OV Office Visit 14:59:38 BUFFET MANAGER CPT-J1070 Depo Testosterone 100 mg 14:50:13 CDT 03/05 CPT-27075 Abx/Therapy Injection 14:50:13 CDT CPT-12073 Administration single or combination vac cine inc oral 14:34:43 CDT CPT-75680 Influenza split virus > age 3 14:34:43 CDT CPT-J1070 Depo Testosterone 100 mg 17:37:13 CDT 01/11 CPT-86224 Abx/Therapy Injection 17:37:13 CDT CPT-13726 Venipuncture Draw Fee 16:30:13 CDT CPT-66595 Venipuncture Draw Fee 16:29:43 CDT CPT-J1070 Depo Testosterone 100 mg 14:45:38 CDT 01/11
--- OUTSIDE RECORDS SUMMARY | 2019-10-27 13:00 | XMS REPORT | Clinical Summary ---
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 Benign neoplasm of colon PERIPHERAL NEUROPATHY [...] ronary atherosclerosis of unspecified type of vessel, [place] or graft OTH NONSPC ABN FINDNG RAD&OTH [...] 1 tab daily for HTN AMLODIPINE BESYLATE 15751849944 Active KENDALL Juarez Active SYNTHROID 0.1 MG TAB 1 tablet by mouth daily LE VOTHYROXINE SODIUM 05021632474 Active Shonna Parker APRN Active GLIPIZIDE 10 MG TAB take 2 tablets twice daily GLIPIZIDE 64828588064 Active Baltazar Childers MD Active SUCRALFATE 1 GM TABS 1 four times a day to coat the stomach 2015 SUCRALFATE 55051169641 No Longer Active Baltazar Childers MD Active PEN NEEDLES 31G X 6 MM MISC use 1 daily INSULIN PEN NEEDLE 50951404663 Active Gato Rae MD Active TOUJEO SOLOSTAR 300 UNIT/ML SC SOPN 10 units SC daily INSULIN GLARGINE 51145646801 No Longer Active [place] ARGUETA Active LANTUS SOLOSTAR 100 UNIT/ML SC SOPN 10 units SC daily INSULIN GLARGINE 14243416017 Active KENDALL Juarez Active NAPROXEN SODIUM 220 MG ORAL TABS 1 three times a day as needed 2 NAPROXEN SODIUM 54320842682 No Longer Active Baltazar Childers MD Active ATORVASTATIN CALCIUM 20 MG ORAL TABS Take 1 tab daily ATORVASTATIN CALCIUM 97508693561 Active Baltazar Childers MD Active FUROSEMIDE 40 MG TABS Take one by mouth daily FUROSEMIDE 25686429801 Active Baltazar Childers MD Active LISINOPRIL 20 MG TABS Take one by mouth daily at bedtime LISINOPRIL 41143691066 No Longer Active Baltazar Childers MD Active ONETOUCH ULTRA BLUE STRP Test twice a day GLUCO SE BLOOD 07943679015 No Longer Active Baltazar Childers MD Active TRUEPLUS LANCETS 33G MISC Test twice a day LANCET S 93256356055 Active KENDALL Juarez Active TRUEDRAW LANCING DEVICE MISC Test twice a day L ANCET DEVICES 74370460395 Active Baltazar Childers MD Active TRUETRACK TEST STRP Test twice a day GLUCOSE BLOO D 81438806402 Active KENDALL Juarez Active TRUETRACK BLOOD GLUCOSE W/DEVICE KIT Test twice a day BLOOD GLUCOSE MONITORING SUPPL 38883878525 Active Baltazar Childers MD Activ e HYDROCODONE-ACETAMINOPHEN 7.5-325 MG TABS Take 1 tab every 6-8 hour s PRN HYDROCODONE-ACETAMINOPHEN 10737006848 Active Baltazar Childers MD Active NORTRIPTYLINE HCL 50 MG CAPS 1 every night for neuropathy 4 NORTRIPTYLINE HCL 89357535038 Active Baltazar Childers MD Acti ve GABAPENTIN 300 MG CAPS 1 three times a day GABAPE NTIN 72199348429 Active Baltazar Childers MD Active GABAPENTIN 300 MG CAPS 1 po qd x 2 days, then 1 po BID x 2 d ays, then 1 po TID GABAPENTIN 30661596467 No Longer Active Baltazar silverman MD Active TRAMADOL HCL 50 MG TABS 1 twice a day as needed for pain TRAMADOL HCL 61751679054 Active Baltazar Childers MD Active NAPROXEN 500 MG TABS 1 tablet by mouth twice daily NAPROXEN 18186811460 No Longer Active Baltazar Childers MD Active PROAIR HFA 108 (90 BASE) MCG/ACT AERS 2 puffs four times a d ay as needed ALBUTEROL SULFATE 14305145164 Active Baltazar Childers MD Active DEPO-TESTOSTERONE 200 MG/ML OIL as directed RUFINO TOSTERONE CYPIONATE 16840896952 No Longer Active Baltazar Childers MD Active LIPITOR 20 MG TABS Take one by mouth daily in evening ATORVASTATIN CALCIUM 44399517761 No Longer Active Baltazar Childers MD Activ e CRESTOR 10 MG TABS 1 by mouth every day R OSUVASTATIN CALCIUM 55461648958 No Longer Active Baltazar Childesr MD Activ e PHENTERMINE HCL 37.5 MG TABS Take one by mouth daily 2 PHENTERMINE HCL 34181392789 No Longer Active Baltazar Childers MD Activ e ROBAXIN-750 750 MG TABS Take one by mouth daily ME THOCARBAMOL 26212721327 Active Baltazar Childers MD Active TIZANIDINE HCL 4 MG TABS 1 daily as needed for muscle spasm 2011 TIZANIDINE HCL 61041902207 No Longer Active Dawna Salazar RN Active [id number] 50-325-40 MG TABS 1 four time s a day as needed for heacache [id number] 97671790469 Active KENDALL Juarez Active SUMATRIPTAN SUCCINATE 100 MG TABS 1 tablet by mouth at onset of migraine as needed SUMATRIPTAN SUCCINATE 72852718186 Active KENDALL Juarez Active LORATADINE 10 MG TABS Take one by mouth daily LORATADINE 87263395911 Active Beth KENDALL Carr Active OMEPRAZOLE 20 MG CPDR Take one by mouth daily OMEPRAZOLE 11715160671 Active Baltazar Childers MD Active HYDROXYZINE HCL 25 MG TABS Take one by mouth daily HYDROXYZINE HCL 02614278734 Active Baltazar Childers MD Active ALPRAZOLAM 1 MG TABS 1 tablet by mouth daily at bedtime for restles s leg ALPRAZOLAM 21743124543 Active Baltazar Childers MD Active METFORMIN HCL 1000 MG TABS Take one by mouth twice daily METFORMIN HCL 01608174407 Active Baltazar Childers MD Active TIZANIDINE HCL 4 MG TABS 1 daily as needed for muscle spasm 2011 TIZANIDINE HCL 4 MG TABS 101547 TIZANIDINE HCL Inactiv e PHENTERMINE HCL 37.5 MG TABS Take one by mouth daily 2 PHENTERMINE HCL 37.5 MG TABS 825685 PHENTERMINE HCL Inactive CRESTOR 10 MG TABS 1 by mouth every day C RESTOR 10 MG TABS 327412 ROSUVASTATIN CALCIUM Inactive LIPITOR 20 MG TABS Take one by mouth daily in evening LIPITOR 20 MG TABS 609801 ATORVASTATIN CALCIUM Inactive DEPO-TESTOSTERONE 200 MG/ML OIL as directed 8 DEPO-TESTOSTERONE 200 MG/ML OIL 933966 TESTOSTERONE CYPIONATE Inactive NAPROXEN 500 MG TABS 1 tablet by mouth twice daily 201 07/27/22 NAPROXEN 500 MG TABS 291141 NAPROXEN Inactive GABAPENTIN 300 MG CAPS 1 po qd x 2 days, then 1 po BID x 2 d ays, then 1 po TID GABAPENTIN 300 MG CAPS 555089 GABAPENTIN Inact amie ONETOUCH ULTRA BLUE STRP Test twice a day ONETOUCH ULTRA BLUE STRP GLUCOSE BLOOD Inactive NAPROXEN SODIUM 220 MG ORAL TABS 1 three times a day as needed 2 NAPROXEN SODIUM 220 MG ORAL TABS 331758 NAPROXEN SODIUM Inactive TOUJEO SOLOSTAR 300 UNIT/ML SC SOPN 10 units SC daily TOUJEO SOLOSTAR 300 UNIT/ML SC SOPN INSULIN GLARGINE Inac tive SUCRALFATE 1 GM TABS 1 four times a day to coat the stomach 2015 SUCRALFATE 1 GM TABS 389053 SUCRALFATE Inactive Immunizations Vaccine Administration Date Value Standard Floyd cription pneumococcal immunization administered Pneumovax 23 [CVX33] pneumococcal polysaccharide vaccine, 23 valent Seasonal influenza vaccine, injectable, containing preservative, for > 3 years old (Afluria, FluLaval, Fluzone, Fluvirin, Fluarix, Agriflu(>= 18 yo)) Fluzone (>3 yrs.) [[id number]] Influenza, seasonal, inject able Seasonal influenza vaccine, injectable, containing preservative, for > 3 years old (Afluria, FluLaval, Fluzone, Fluvirin, Fluarix, Agriflu(>= 18 yo)) Fluzone (>3 yrs.) [[id number]] Influenza, seasonal, inject able Vital Signs Date [...] C - Chemistry sodium, serum 143 mmol/L 428-692 8709/06/19 potassium, serum 5.9 mmol/L 3.5-5.2 chloride, serum 105 mmol/L 98-107 carbon dioxide, venous blood 30.2 mmol/L 21.0-32 .0 blood glucose 189 mg/dL 65-110 calcium, serum 9.7 mg/dL 8.5-10.1 urea nitrogen, blood 37 mg/dL 7-18 creatinine, serum 2.11 mg/dL 0.55-1.30 hemoglobin A1C, blood, as % of total hemoglobin 8.2 % 4.3-6.0 Lab Report: CBC, Renal Panel - Chemistry sodium, serum 142 mmol/L 103-312 6873/08/11 potassium, serum 4.8 mmol/L 3.5-5.2 chloride, serum [...] Panel - Chemistry sodium, serum 143 mmol/L 164-117 9322/12/19 carbon dioxide, venous blood 32.5 mmol/L 21.0-32 .0 potassium, serum 4.9 mmol/L 3.5-5.2 chloride, serum 101 mmol/L 98-107 blood glucose 129 mg/dL 65-110 urea nitrogen, blood 18 mg/dL 7-18 creatinine, serum 1.79 mg/dL 0.55-1.30 alanine aminotransferase (SGPT), serum 34 U/L 12-78 aspartate aminotransferase (SGOT), serum 26 U/L 15-37 calcium, serum 8.9 mg/dL 8.5-10.1 bilirubin, serum, total 0.30 mg/dL 0.00-1.00 cholesterol, serum 214 mg/dL 636-433 8462/12/19 triglyceride, serum, fasting 351 mg/dL 30-200 HDL [...] 4.3-6.0 Encounters Code Encounter Date Provider Facility CPT-47018 Level 4 Est. Patient 14:22:31 CDT Baltazar Childers MD [facility] CPT-67473 Level 4 Est. Patient 15:44:38 CDT Shonna Parker APRN [facility] CPT-98498 Level 4 Est. Patient 11:34:17 CDT Baltazar Childers MD [facility] CPT-05007 Level 3 Est. Patient 16:40:40 CDT Baltazar Childers MD [facility] CPT-81164 Level 4 Est. Patient 10:41:24 CDT Baltazar Childers MD [facility] CPT-58658 Level 4 Est. Patient 16:01:48 CDT Baltazar Childers MD [facility] CPT-58638 Level 4 Est. Patient 16:54:07 SOCIOLOGY INSTRUCTOR Baltazar Childers MD [facility] CPT-68285 Level 4 Est. Patient 15:42:12 CDT Baltazar Childers MD [facility] CPT-58357 Level 4 Est. Patient 11:29:55 CDT Baltazar Childers MD [facility] CPT-37525 Level 4 Est. Patient 14:15:19 CDT Baltazar Childers MD [facility] CPT-85659 Level 4 Est. Patient 12:20:13 CDT Baltazar Childers MD [facility] CPT-93032 Level 4 Est. Patient 14:52:45 SOCIOLOGY INSTRUCTOR Baltazar Childers MD [facility] CPT-69402 Level 4 Est. Patient 14:18:34 SOCIOLOGY INSTRUCTOR Baltazar Childers MD [facility] CPT-81386 Level 4 Est. Patient 15:18:29 CDT Baltazar Childers MD [facility] CPT-78450 Level 3 Est. Patient 12:45:34 CDT Baltazar Childers MD [facility] CPT-58323 Level 3 Est. Patient 10:10:11 CDT Baltazar Childers MD [facility] CPT-32430 Level 3 Est. Patient 14:07:50 CDT Baltazar Childers MD [facility] CPT-85108 Level 4 Est. Patient 12:26:10 SOCIOLOGY INSTRUCTOR Baltazar Childers MD [facility] CPT-05583 Level 4 Est. Patient 14:45:38 CDT Baltazar Childers MD [facility] CPT-95667 Level 4 New Patient 12:30:48 CDT Baltazar hinton MD [facility] Procedures Code Procedure Name Date Entry Date Standard Desc ription CPT-78327 Venipuncture Draw Fee 12:04:12 CDT CPT-15341 Lipid - LAB USE ONLY 17:39:15 SOCIOLOGY INSTRUCTOR 9 CPT-80032 HGBA1C - LAB USE ONLY 17:39:15 SOCIOLOGY INSTRUCTOR CPT-69137 CMP - LAB USE ONLY 17:39:14 SOCIOLOGY INSTRUCTOR CPT-34466 Venipuncture Draw Fee 17:39:14 SOCIOLOGY INSTRUCTOR CPT-57165 First Vx - Ix admin via ID I M or jet injects without counseling by physician 16:55:17 SOCIOLOGY INSTRUCTOR CPT-09079 Fluzone Quadrivalent Intramuscular Suspe nsion 0.5 ML 16:55:17 SOCIOLOGY INSTRUCTOR CPT-59283 Renal Panel - LAB USE ONLY 17:39:20 CDT 201 10/31/07 CPT-20866 CBC - LAB USE ONLY 17:39:20 CDT CPT-27372 Venipuncture Draw Fee 17:39:20 CDT CPT-47616 Venipuncture Draw Fee 14:33:30 CDT CPT-72632 Renal Panel - LAB USE ONLY 14:33:30 CDT 201 10/31/07 CPT-72445 CBC - LAB USE ONLY 14:33:29 CDT CPT-31765 Venipuncture Draw Fee 14:50:21 SOCIOLOGY INSTRUCTOR CPT-89772 Immunization Single Admin 17:35:35 CDT 2014 CPT-15866 Fluzone Quadrivalent preservative free ( >=3yrs.) 17:35:35 CDT CPT-68683 Venipuncture Draw Fee 12:10:27 SOCIOLOGY INSTRUCTOR CPT-08797 Fluzone Quadrivalent Intramuscular Suspe nsion 0.5 ML 10:49:13 CDT CPT-34733 First Vx Component - Ix admi n via ID IM or jet inj without physician counseling 15:17:19 SOCIOLOGY INSTRUCTOR CPT-26878 Pneumovax 23 15:17:19 SOCIOLOGY INSTRUCTOR CPT-12539 Pneumovax 14:52:45 SOCIOLOGY INSTRUCTOR CPT-77247 Venipuncture Draw Fee 14:06:30 SOCIOLOGY INSTRUCTOR CPT-000 Give Appropriate Flu Vaccine 14:18:34 SOCIOLOGY INSTRUCTOR 2 CPT-65341 Administration single or combination vac cine inc oral 14:46:00 SOCIOLOGY INSTRUCTOR CPT-30875 Influenza split virus > age 3 14:46:00 SOCIOLOGY INSTRUCTOR CPT-OV Office Visit 19:13:16 CDT CPT-51072 Zostavax 18:41:56 CDT CPT-49854 Administration single or combination vac cine inc oral 12:56:39 CDT CPT-84543 Zoster Vaccine (Zostavax) 12:56:39 CDT 2012 CPT-27196 Venipuncture Draw Fee 10:58:57 CDT CPT-64572 Sono pelvis non OB uterus ovaries cervix 17:45:04 CDT CPT-35231 Sono retroperitoneal complete kidneys an d bladder 17:14:36 CDT CPT-OV Office Visit 14:59:38 SOCIOLOGY INSTRUCTOR CPT-J1070 Depo Testosterone 100 mg 14:50:13 CDT 03/05 CPT-96093 Abx/Therapy Injection 14:50:13 CDT CPT-95433 Administration single or combination vac cine inc oral 14:34:43 CDT CPT-88813 Influenza split virus > age 3 14:34:43 CDT CPT-J1070 Depo Testosterone 100 mg 17:37:13 CDT 01/11 CPT-31097 Abx/Therapy Injection 17:37:13 CDT CPT-29888 Venipuncture Draw Fee 16:30:13 CDT CPT-33851 Venipuncture Draw Fee 16:29:43 CDT CPT-J1070 Depo Testosterone 100 mg 14:45:38 CDT 01/11
--- OUTSIDE RECORDS SUMMARY | 2019-10-27 13:00 | XMS REPORT | Clinical Summary ---
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 Benign neoplasm of colon PERIPHERAL NEUROPATHY [...] ronary atherosclerosis of unspecified type of vessel, [place] or graft OTH NONSPC ABN FINDNG RAD&OTH [...] three times a day 201 12/03/26 GABAPENTIN [id number] No Longer Active Baltazar Childers MD Activ e LISINOPRIL 20 MG ORAL TABLET 1 tablet by mouth daily at night 2016 LISINOPRIL 34861155719 Active Baltazar Childers MD Active ZITHROMAX Z-ISAIAS 250 MG ORAL TABLET Take two tablets to day and then 1 tablet daily for 4 days AZITHROMYCIN 25748657219 No Longer A ctive Baltazar Childers MD Active LANTUS SOLOSTAR 100 UNIT/ML SUBCUTANEOUS SOLUTION PEN- INJECTOR 30 units SC daily INSULIN GLARGINE 67737031032 Active Baltazar Childers MD Active AMLODIPINE BESYLATE 5 MG ORAL TABLET 1 tab daily for HTN AMLODIPINE BESYLATE 32981559353 Active Baltazar Childers MD Active SYNTHROID 100 MCG ORAL TABLET 1 tablet by mouth daily LEVOTHYROXINE SODIUM 94730918054 Active Baltazar Childers MD Active GLIPIZIDE 10 MG ORAL TABLET take 2 tablets twice daily GLIPIZIDE 60496757762 Active Baltazar Childers MD Active SUCRALFATE 1 GM ORAL TABLET 1 four times a day to coat the stoma ch SUCRALFATE 78390525280 No Longer Active Baltazar Childers MD Active PEN NEEDLES 31G X 6 MM use 1 daily INSULIN PEN NE EDLE 19983802484 Active KENDALL Juarez Active CELINA POWERSOSTNAKITA 300 UNIT/ML SUBCUTANEOUS SOLUTION PEN- INJECTOR 10 units SC daily INSULIN GLARGINE 85135465515 No Longer Active Rola Godinez RMA Active NAPROXEN SODIUM 220 MG ORAL TABLET 1 three times a day as needed NAPROXEN SODIUM 33833409143 No Longer Active Baltazar Childers MD Active ATORVASTATIN CALCIUM 20 MG ORAL TABLET Take 1 tab daily ATORVASTATIN CALCIUM 36212307796 Active Baltazar Childers MD A ctive FUROSEMIDE 40 MG ORAL TABLET Take one by mouth daily FUROSEMIDE 46663414435 Active Jessy Arellano LPN Active LISINOPRIL 20 MG ORAL TABLET Take one by mouth daily at bedtime LISINOPRIL 57353327476 No Longer Active Baltazar Childers MD Active ONETOUCH ULTRA BLUE IN VITRO STRIP Test twice a day 07/11/11 GLUCOSE BLOOD 13713227423 No Longer Active Baltazar Childers MD Acti ve TRUEPLUS LANCETS 33G Test twice a day LANCETS 4392910 4918 Active KENDALL Juarez Active TRUEDRAW LANCING DEVICE Test twice a day LANCET DEVICES 23040292651 Active Baltazar Childers MD Active TRUETRACK TEST IN VITRO STRIP Test twice a day GLUCOSE BLOOD 63670759464 Active KENDALL Juarez Active TRUETRACK BLOOD GLUCOSE w/Device KIT Test twice a day BLOOD GLUCOSE MONITORING SUPPL 68194499122 Active Baltazar Childers MD Activ e HYDROCODONE-ACETAMINOPHEN 7.5-325 MG ORAL TABLET Take 1 tab every 6-8 hours PRN HYDROCODONE-ACETAMINOPHEN 65000033573 Active Baltazar Nickerson MD Active NORTRIPTYLINE HCL 50 MG ORAL CAPSULE 1 every night for neuropathy 2 NORTRIPTYLINE HCL 74274386472 Active Baltazar Childers MD Acti ve GABAPENTIN 300 MG ORAL CAPSULE 1 po qd x 2 days, then 1 po BID x 2 days, then 1 po TID GABAPENTIN 22484278306 No Longer Active Baltazar Childers MD Active TRAMADOL HCL 50 MG ORAL TABLET 1 twice a day as needed for pain 201 07/27/28 TRAMADOL HCL 07130889382 Active Baltazar Childers MD Active NAPROXEN 500 MG ORAL TABLET 1 tablet by mouth twice daily NAPROXEN 72333607813 No Longer Active Baltazar Childers MD Active PROAIR HFA 108 (90 Base) MCG/ACT INHALATION AEROSOL SO LUTION 2 puffs four times a day as needed ALBUTEROL SULFATE 98307397556 Active Paul Childers MD Active DEPO-TESTOSTERONE 200 MG/ML INTRAMUSCULAR SOLUTION as directed TESTOSTERONE CYPIONATE 72820879918 No Longer Active Baltazar Childers MD Active LIPITOR 20 MG ORAL TABLET Take one by mouth daily in evening ATORVASTATIN CALCIUM 95315422372 No Longer Active Baltazar Childers MD Active CRESTOR 10 MG ORAL TABLET 1 by mouth every day ROSUVASTATIN CALCIUM 67792814865 No Longer Active Baltazar Childers MD Active PHENTERMINE HCL 37.5 MG ORAL TABLET Take one by mouth daily PHENTERMINE HCL 59373033534 No Longer Active Baltazar Childers MD Ac tive ROBAXIN-750 750 MG ORAL TABLET Take one by mouth daily METHOCARBAMOL 29068043337 Active Baltazar Childers MD Active TIZANIDINE HCL 4 MG ORAL TABLET 1 daily as needed for muscle spa sm TIZANIDINE HCL 26452039600 No Longer Active Dawna Salazar RN Active [id number] 50-325-40 MG ORAL TABLET 1 fo ur times a day as needed for heacache [id number] 60737942228 Active Baltazar Childers MD Active SUMATRIPTAN SUCCINATE 100 MG ORAL TABLET 1 tablet by m outh at onset of migraine as needed SUMATRIPTAN SUCCINATE 29848222567 Active Bertha Vazquez LPN Active LORATADINE 10 MG ORAL TABLET Take one by mouth daily LORATADINE 73985147095 Active Baltazar Childers MD Active OMEPRAZOLE 20 MG ORAL CAPSULE DELAYED RELEASE Take one by mouth jostin ly OMEPRAZOLE 13676607196 Active Baltazar Childers MD Active HYDROXYZINE HCL 25 MG ORAL TABLET Take one by mouth daily HYDROXYZINE HCL 16377023462 Active Baltazar Childers MD Active ALPRAZOLAM 1 MG ORAL TABLET 1 tablet by mouth daily at [facility] leg ALPRAZOLAM 61363730649 Active Baltazar Childers MD Active METFORMIN HCL 1000 MG ORAL TABLET Take one by mouth twice daily METFORMIN HCL 49327788499 Active Baltazar Childers MD Active TIZANIDINE HCL 4 MG ORAL TABLET 1 daily as needed for muscle spa sm TIZANIDINE HCL 4 MG ORAL TABLET 606895 TIZANIDINE HCL Inactive PHENTERMINE HCL 37.5 MG ORAL TABLET Take one by mouth daily PHENTERMINE HCL 37.5 MG ORAL TABLET 437270 PHENTERMINE HCL Inac tive CRESTOR 10 MG ORAL TABLET 1 by mouth every day CRESTOR 10 MG ORAL TABLET 462987 ROSUVASTATIN CALCIUM Inactive LIPITOR 20 MG ORAL TABLET Take one by mouth daily in evening LIPITOR 20 MG ORAL TABLET 658986 ATORVASTATIN CALCIUM Inactive DEPO-TESTOSTERONE 200 MG/ML INTRAMUSCULAR SOLUTION as directed DEPO-TESTOSTERONE 200 MG/ML INTRAMUSCULAR SOLUTION 661629 RUFINO TOSTERONE CYPIONATE Inactive NAPROXEN 500 MG ORAL TABLET 1 tablet by mouth twice daily NAPROXEN 500 MG ORAL TABLET 262330 NAPROXEN Inactive GABAPENTIN 300 MG ORAL CAPSULE 1 po qd x 2 days, then 1 po BID x 2 days, then 1 po TID GABAPENTIN 300 MG ORAL CAPSULE 386772 GABAP ENTIN Inactive ONETOUCH ULTRA BLUE IN VITRO STRIP Test twice a day 07/11/11 ONETOUCH ULTRA BLUE IN VITRO STRIP GLUCOSE BLOOD Inact amie NAPROXEN SODIUM 220 MG ORAL TABLET 1 three times a day as needed NAPROXEN SODIUM 220 MG ORAL TABLET 709977 NAPROXEN SODI UM Inactive TOUJEO SOLOSTAR 300 UNIT/ML SUBCUTANEOUS SOLUTION PEN- INJECTOR 10 units SC daily TOUJEO SOLOSTAR 300 UNIT/ML SUBCUTANEOUS SOLUTION PEN-INJECTOR INSULIN GLARGINE Inactive SUCRALFATE 1 GM ORAL TABLET 1 four times a day to coat the stoma ch SUCRALFATE 1 GM ORAL TABLET 945280 SUCRALFATE Inac tive GABAPENTIN 300 MG ORAL CAPSULE 1 three times a day 201 12/03/26 GABAPENTIN 300 MG ORAL CAPSULE 331664 GABAPENTIN Inactive ZITHROMAX Z-ISAIAS 250 MG ORAL TABLET Take two tablets to day and then 1 tablet daily for 4 days ZITHROMAX Z-ISAIAS 250 MG ORAL TAB LET 393891 AZITHROMYCIN Inactive Immunizations Vaccine Administration Date Value Standard Floyd cription pneumococcal immunization administered Pneumovax 23 [CVX33] pneumococcal polysaccharide vaccine, 23 valent Seasonal influenza vaccine, injectable, containing preservative, for > 3 years old (Afluria, FluLaval, Fluzone, Fluvirin, Fluarix, Agriflu(>= 18 yo)) Fluzone (>3 yrs.) [[id number]] Influenza, seasonal, inject able Seasonal influenza vaccine, injectable, containing preservative, for > 3 years old (Afluria, FluLaval, Fluzone, Fluvirin, Fluarix, Agriflu(>= 18 yo)) Fluzone (>3 yrs.) [[id number]] Influenza, seasonal, inject able Vital Signs Date [...] - Chem istry sodium, serum 139 mmol/L 220-130 1402/10/03 potassium, serum 4.7 mmol/L 3.5-5.2 chloride, serum 98 mmol/L 98-107 carbon dioxide, venous blood 28.7 mmol/L 21.0-32 .0 blood glucose 218 mg/dL 65-110 calcium, serum 9.8 mg/dL 8.5-10.1 urea nitrogen, blood 19 mg/dL 7-18 creatinine, serum 1.68 mg/dL 0.60-1.30 Lab Report: Basic Metabolic Panel, HGBA1 C - Chemistry sodium, serum 143 mmol/L 281-199 4960/06/19 potassium, serum 5.9 mmol/L 3.5-5.2 chloride, serum 105 mmol/L 98-107 carbon dioxide, venous blood 30.2 mmol/L 21.0-32 .0 blood glucose 189 mg/dL 65-110 calcium, serum 9.7 mg/dL 8.5-10.1 urea nitrogen, blood 37 mg/dL 7-18 creatinine, serum 2.11 mg/dL 0.55-1.30 hemoglobin A1C, blood, as % of total hemoglobin 8.2 % 4.3-6.0 Lab Report: CBC, Renal Panel - Chemistry sodium, serum 142 mmol/L 768-613 2420/08/11 potassium, serum 4.8 mmol/L 3.5-5.2 chloride, serum [...] 4.3-6.0 Encounters Code Encounter Date Provider Facility CPT-57622 Level 4 Est. 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 Patient 12:25:11 CDT Baltazar Childers MD [facility] CPT-90602 Level 4 Est. Patient 14:22:31 CDT Baltazar Childers MD [facility] CPT-44392 Level 4 Est. Patient 15:44:38 CDT Shonna Parker APRN [facility] CPT-09380 Level 4 Est. Patient 11:34:17 CDT Baltazar Childers MD [facility] CPT-99760 Level 3 Est. Patient 16:40:40 CDT Baltazar Childers MD [facility] CPT-18755 Level 4 Est. Patient 10:41:24 CDT Baltazar Childers MD [facility] CPT-71688 Level 4 Est. Patient 16:01:48 CDT Baltazar Childers MD [facility] CPT-76553 Level 4 Est. Patient 16:54:07 CRIME SCENE SPECIALIST Blatazar Childers MD [facility] CPT-04644 Level 4 Est. Patient 15:42:12 CDT Baltazar Childers MD [facility] CPT-76820 Level 4 Est. Patient 11:29:55 CDT Baltazar Childers MD [facility] CPT-08683 Level 4 Est. Patient 14:15:19 CDT aBltazar Childers MD [facility] CPT-17477 Level 4 Est. Patient 12:20:13 CDT Baltazar Childers MD [facility] CPT-21097 Level 4 Est. Patient 14:52:45 [employer] SCENE SPECIALIST Baltazar Childers MD [facility] CPT-90769 Level 4 Est. Patient 14:18:34 CRIME SCENE SPECIALIST Baltazar Childers MD [facility] CPT-31692 Level 4 Est. Patient 15:18:29 CDT Baltazar Childers MD [facility] CPT-86335 Level 3 Est. Patient 12:45:34 CDT Baltazar Childers MD [facility] CPT-88138 Level 3 Est. Patient 10:10:11 CDT Baltazar Childers MD [facility] CPT-50557 Level 3 Est. Patient 14:07:50 CDT Baltazar Childers MD [facility] CPT-93502 Level 4 Est. Patient 12:26:10 CRIME SCENE SPECIALIST Baltazar Childers MD [facility] CPT-16026 Level 4 Est. Patient 14:45:38 CDT Baltazar Childers MD [facility] CPT-57646 Level 4 New Patient 12:30:48 CDT Baltazar hinton MD [facility] Procedures Code Procedure Name Date Entry Date Standard Desc ription CPT-36721 First Vx - Ix admin via ID I M or jet injects without counseling by physician 13:08:59 CDT CPT-78524 Fluzone Quadrivalent Intramuscular Suspe nsion 0.5 ML 13:08:59 CDT CPT-53261 Venipuncture Draw Fee 12:04:12 CDT CPT-26092 Lipid - LAB USE ONLY 17:39:15 CR[employer] SCENE SPECIALIST 9 CPT-10556 HGBA1C - LAB USE ONLY 17:39:15 CRIME SCENE SPECIALIST CPT-47613 CMP - LAB USE ONLY 17:39:14 CRIME SCENE SPECIALIST CPT-29717 Venipuncture Draw Fee 17:39:14 CRIME SCENE SPECIALIST CPT-26117 First Vx - Ix admin via ID I M or jet injects without counseling by physician 16:55:17 CRIME SCENE SPECIALIST CPT-31154 Fluzone Quadrivalent Intramuscular Suspe nsion 0.5 ML 16:55:17 CRIME SCENE SPECIALIST CPT-35238 Renal Panel - LAB USE ONLY 17:39:20 CDT 201 10/31/07 CPT-33859 CBC - LAB USE ONLY 17:39:20 CDT CPT-79395 Venipuncture Draw Fee 17:39:20 CDT CPT-81004 Venipuncture Draw Fee 14:33:30 CDT CPT-95952 Renal Panel - LAB USE ONLY 14:33:30 CDT 201 10/31/07 CPT-89499 CBC - LAB USE ONLY 14:33:29 CDT CPT-36246 Venipuncture Draw Fee 14:50:21 CR[employer] SCENE SPECIALIST CPT-08410 Immunization Single Admin 17:35:35 CDT 2014 CPT-96622 Fluzone Quadrivalent preservative free ( >=3yrs.) 17:35:35 CDT CPT-91714 Venipuncture Draw Fee 12:10:27 CR[employer] SCENE SPECIALIST CPT-68048 Fluzone Quadrivalent Intramuscular Suspe nsion 0.5 ML 10:49:13 CDT CPT-73535 First Vx Component - Ix admi n via ID IM or jet inj without physician counseling 15:17:19 [employer]IME SCENE SPECIALIST CPT-63088 Pneumovax 23 15:17:19 CRIME SCENE SPECIALIST CPT-37808 Pneumovax 14:52:45 CRIME SCENE SPECIALIST CPT-78701 Venipuncture Draw Fee 14:06:30 CRIME SCENE SPECIALIST CPT-000 Give Appropriate Flu Vaccine 14:18:34 CRIME SCENE SPECIALIST 2 CPT-12187 Administration single or combination vac cine inc oral 14:46:00 CR[employer] SCENE SPECIALIST CPT-81962 Influenza split virus > age 3 14:46:00 CRIME SCENE SPECIALIST CPT-OV Office Visit 19:13:16 CDT CPT-97927 Zostavax 18:41:56 CDT CPT-13641 Administration single or combination vac cine inc oral 12:56:39 CDT CPT-88394 Zoster Vaccine (Zostavax) 12:56:39 CDT 2012 CPT-55189 Venipuncture Draw Fee 10:58:57 CDT CPT-08866 Sono pelvis non OB uterus ovaries cervix 17:45:04 CDT CPT-54937 Sono retroperitoneal complete kidneys an d bladder 17:14:36 CDT CPT-OV Office Visit 14:59:38 [employer] SPECIALIST CPT-J1070 Depo Testosterone 100 mg 14:50:13 CDT 03/05 CPT-44419 Abx/Therapy Injection 14:50:13 CDT CPT-93872 Administration single or combination vac cine inc oral 14:34:43 CDT CPT-93955 Influenza split virus > age 3 14:34:43 CDT CPT-J1070 Depo Testosterone 100 mg 17:37:13 CDT 01/11 CPT-23149 Abx/Therapy Injection 17:37:13 CDT CPT-30023 Venipuncture Draw Fee 16:30:13 CDT CPT-85571 Venipuncture Draw Fee 16:29:43 CDT CPT-J1070 Depo Testosterone 100 mg 14:45:38 CDT 01/11
--- OUTSIDE RECORDS SUMMARY | 2019-10-27 13:00 | XMS REPORT | Clinical Summary ---
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 Benign neoplasm of colon PERIPHERAL NEUROPATHY [...] ronary atherosclerosis of unspecified type of vessel, king salmon or graft OTH NONSPC ABN FINDNG RAD&OTH [...] a day to coat the stomach SUCRALFATE 10951819574 Active Baltazar Childers MD Active PEN NEEDLES 31G X 6 MM MISC use 1 daily INSULIN PEN NEEDLE 28790688200 Active Martita Herbert RMA Active TOUJEO SOLOSTAR 300 UNIT/ML SC SOPN 10 units SC daily INSULIN GLARGINE 83930302877 No Longer Active Martita Herbert RMA Active LANTUS SOLOSTAR 100 UNIT/ML SC SOPN 10 units SC daily INSULIN GLARGINE 60701796740 Active KENDALL Juarez Active NAPROXEN SODIUM 220 MG ORAL TABS 1 three times a day as needed 2 NAPROXEN SODIUM 61650997524 No Longer Active Baltazar Childers MD Active ATORVASTATIN CALCIUM 20 MG ORAL TABS Take 1 tab daily ATORVASTATIN CALCIUM 17370485095 Active Baltazar Childers MD Active FUROSEMIDE 40 MG TABS Take one by mouth daily FUROSEMIDE 63925493051 Active Baltazar Childers MD Active LISINOPRIL 20 MG TABS Take one by mouth daily at bedtime LISINOPRIL 15607546211 Active Baltazar Childers MD Active ONETOUCH ULTRA BLUE STRP Test twice a day GLUCO SE BLOOD 17575787741 No Longer Active Baltazar Childers MD Active TRUEPLUS LANCETS 33G MISC Test twice a day LANCET S 59427881915 Active KENDALL Juarez Active TRUEDRAW LANCING DEVICE MISC Test twice a day L ANCET DEVICES 75944476519 Active Baltazar Childers MD Active TRUETRACK TEST STRP Test twice a day GLUCOSE BLOO D 89889984813 Active KENDALL Juarez Active TRUETRACK BLOOD GLUCOSE W/DEVICE KIT Test twice a day BLOOD GLUCOSE MONITORING SUPPL 12657580226 Active Baltazar Childers MD Activ e HYDROCODONE-ACETAMINOPHEN 7.5-325 MG TABS Take 1 tab every 6-8 hour s PRN HYDROCODONE-ACETAMINOPHEN 48083722317 Active Baltazar Childers MD Active NORTRIPTYLINE HCL 50 MG CAPS 1 every night for neuropathy 4 NORTRIPTYLINE HCL 18283696287 Active Baltazar Childers MD Acti ve GABAPENTIN 300 MG CAPS 1 three times a day GABAPE NTIN 90942222809 Active Baltazar Childers MD Active GABAPENTIN 300 MG CAPS 1 po qd x 2 days, then 1 po BID x 2 d ays, then 1 po TID GABAPENTIN 18404233958 No Longer Active Baltazar silverman MD Active TRAMADOL HCL 50 MG TABS 1 twice a day as needed for pain TRAMADOL HCL 15474884636 Active Baltazar Childers MD Active NAPROXEN 500 MG TABS 1 tablet by mouth twice daily NAPROXEN 29712276928 No Longer Active Baltazar Childers MD Active PROAIR HFA 108 (90 BASE) MCG/ACT AERS 2 puffs four times a d ay as needed ALBUTEROL SULFATE 11404624698 Active Baltazar Childers MD Active DEPO-TESTOSTERONE 200 MG/ML OIL as directed RUFINO TOSTERONE CYPIONATE 29796917087 No Longer Active Baltazar Childers MD Active LIPITOR 20 MG TABS Take one by mouth daily in evening ATORVASTATIN CALCIUM 23704096972 No Longer Active Baltazar Childers MD Activ e CRESTOR 10 MG TABS 1 by mouth every day R OSUVASTATIN CALCIUM 14341720166 No Longer Active Baltazar Childers MD Activ e PHENTERMINE HCL 37.5 MG TABS Take one by mouth daily 2 PHENTERMINE HCL 35711091911 No Longer Active Baltazar Childers MD Activ e ROBAXIN-750 750 MG TABS Take one by mouth daily ME THOCARBAMOL 34601817798 Active Baltazar Childers MD Active TIZANIDINE HCL 4 MG TABS 1 daily as needed for muscle spasm 2011 TIZANIDINE HCL 31366009813 No Longer Active Dawna Salazar RN Active [id number] 50-325-40 MG TABS 1 four time s a day as needed for heacache [id number] 13771148984 Active Baltazar Childers MD Active SUMATRIPTAN SUCCINATE 100 MG TABS 1 tablet by mouth at onset of migraine as needed SUMATRIPTAN SUCCINATE 20323941068 Active Bella STEPHEN RN Active LORATADINE 10 MG TABS Take one by mouth daily LORATADINE 84568313486 Active Baltazar Childers MD Active OMEPRAZOLE 20 MG CPDR Take one by mouth daily OMEPRAZOLE 15167933610 Active Argentina Lyons Active HYDROXYZINE HCL 25 MG TABS Take one by mouth daily HYDROXYZINE HCL 84331399425 Active Baltazar Childers MD Active GLIPIZIDE 10 MG TABS 1 tablet by mouth twice daily GLIPIZIDE 61262997299 Active Baltazar Childers MD Active ALPRAZOLAM 1 MG TABS 1 tablet by mouth daily at bedtime for restles s leg ALPRAZOLAM 89646172350 Active Baltazar Childers MD Active METFORMIN HCL 1000 MG TABS Take one by mouth twice daily METFORMIN HCL 19230463612 Active Baltazar Childers MD Active TIZANIDINE HCL 4 MG TABS 1 daily as needed for muscle spasm 2011 TIZANIDINE HCL 4 MG TABS 635165 TIZANIDINE HCL Inactiv e PHENTERMINE HCL 37.5 MG TABS Take one by mouth daily 2 PHENTERMINE HCL 37.5 MG TABS 008201 PHENTERMINE HCL Inactive CRESTOR 10 MG TABS 1 by mouth every day C RESTOR 10 MG TABS 410168 ROSUVASTATIN CALCIUM Inactive LIPITOR 20 MG TABS Take one by mouth daily in evening LIPITOR 20 MG TABS 693737 ATORVASTATIN CALCIUM Inactive DEPO-TESTOSTERONE 200 MG/ML OIL as directed 8 DEPO-TESTOSTERONE 200 MG/ML OIL 487569 TESTOSTERONE CYPIONATE Inactive NAPROXEN 500 MG TABS 1 tablet by mouth twice daily 201 07/27/22 NAPROXEN 500 MG TABS 391539 NAPROXEN Inactive GABAPENTIN 300 MG CAPS 1 po qd x 2 days, then 1 po BID x 2 d ays, then 1 po TID GABAPENTIN 300 MG CAPS 971422 GABAPENTIN Inact amie ONETOUCH ULTRA BLUE STRP Test twice a day ONETOUCH ULTRA BLUE STRP GLUCOSE BLOOD Inactive NAPROXEN SODIUM 220 MG ORAL TABS 1 three times a day as needed 2 NAPROXEN SODIUM 220 MG ORAL TABS 396135 NAPROXEN SODIUM Inactive TOUJEO SOLOSTAR 300 UNIT/ML [...] Fluarix, Agriflu(>= 18 yo)) Fluzone (>3 yrs.) [XJC005] Influenza, seasonal, inject able Seasonal influenza vaccine, injectable, containing preservative, for > 3 years old (Afluria, FluLaval, Fluzone, Fluvirin, Fluarix, Agriflu(>= 18 yo)) Fluzone (>3 yrs.) [[id number]] Influenza, seasonal, inject able Vital Signs Date [...] Basic Metabolic Panel, HGBA1 C - Chemistry carbon dioxide, venous blood 33.8 mmol/L 21.0-32 .0 urea nitrogen, blood 14 mg/dL 7-18 creatinine, serum 1.89 mg/dL 0.55-1.30 hemoglobin A1C, blood, as % of total hemoglobin 8.3 % 4.3-6.0 blood glucose 209 mg/dL 65-110 calcium, serum 9.8 mg/dL 8.5-10.1 sodium, serum 139 mmol/L 626-609 9892/07/07 potassium, serum 4.5 mmol/L 3.5-5.2 chloride, serum 99 mmol/L 98-107 Lab Report: CBC - Hematology leukocyte count, [...] CBC, HGBA1C, Renal Panel - C hemistry urea nitrogen, blood 24 mg/dL 7-18 calcium, serum 9.4 mg/dL 8.5-10.1 hemoglobin A1C, blood, as % of total hemoglobin 7.9 % 4.3-6.0 sodium, serum 139 mmol/L 459-022 4207/02/04 potassium, serum 5.4 mmol/L 3.5-5.2 chloride, serum 99 mmol/L 98-107 carbon dioxide, venous blood 36.7 mmol/L 21.0-32 .0 creatinine, serum 2.02 mg/dL 0.55-1.30 blood glucose 181 mg/dL 65-110 Lab Report: CBC, HGBA1C, Renal Panel - [...] Comp. Metabolic Panel, Lipid Panel - Chemistry alanine aminotransferase (SGPT), serum 71 U/L 12-78 aspartate aminotransferase (SGOT), serum 34 U/L 15-37 calcium, serum 9.4 mg/dL 8.5-10.1 bilirubin, serum, total 0.40 mg/dL 0.00-1.00 cholesterol, serum 405 mg/dL 523-649 3676/11/23 triglyceride, serum, fasting 709 mg/dL 30-200 HDL cholesterol, serum 53 mg/dL 32-96 LDL cholesterol, serum 210 mg/dL 0-130 carbon dioxide, venous blood 32.4 mmol/L 21.0-32 .0 sodium, serum 138 mmol/L 557-702 3499/11/23 creatinine, serum 1.71 mg/dL 0.55-1.30 urea nitrogen, blood 18 mg/dL 7-18 blood glucose 136 mg/dL 65-110 chloride, serum 98 mmol/L 98-107 potassium, serum 5.7 mmol/L 3.5-5.2 Lab Report: HGBA1C - Chemistry hemoglobin A1C, blood, as % of total hemoglobin 7.7 % 4.3-6.0 Lab Report: MICROALB/CREAT W/RATIO - Maryam jo albumin/creatinine ratio, urine < 30 mg/g mg/g{creat} 0-2 9 Lab Report: MICROALB/CREAT W/RATIO - Lab microalbumin, urine 10 0-19 Lab Report: Renal Panel - Chemistry potassium, serum 4.9 mmol/L 3.5-5.2 chloride, serum 101 mmol/L 98-107 carbon dioxide, venous blood 34.1 mmol/L 21.0-32 .0 creatinine, serum 1.98 mg/dL 0.55-1.30 blood glucose 193 mg/dL 65-110 sodium, serum 141 mmol/L 579-512 4051/08/08 urea nitrogen, blood 30 mg/dL 7-18 calcium, serum 9.8 mg/dL 8.5-10.1 Office Visit: Medication refill - Chemis try cholesterol, target level 200 mg/dL LDL target level 70 mg/dL HDL cholesterol, serum, target level 40 mg/dL triglyceride, target level 150 mg/dL Encounters Code Encounter Date Provider Facility CPT-61266 Level 4 Est. Patient 11:34:17 CDT Baltazar Childers MD [facility] CPT-35397 Level 3 Est. Patient 16:40:40 CDT Baltazar Childers MD [facility] CPT-28695 Level 4 Est. Patient 10:41:24 CDT Baltazar Childers MD [facility] CPT-15465 Level 4 Est. Patient 16:01:48 CDT Baltazar Childers MD [facility] CPT-10136 Level 4 Est. Patient 16:54:07 WIRE INSPECTOR Baltazar Childers MD [facility] CPT-09164 Level 4 Est. Patient 15:42:12 CDT Baltazar Childers MD [facility] CPT-18317 Level 4 Est. Patient 11:29:55 CDT Baltazar Childers MD [facility] CPT-73850 Level 4 Est. Patient 14:15:19 CDT Baltazar Childers MD [facility] CPT-53707 Level 4 Est. Patient 12:20:13 CDT Baltazar Childers MD [facility] CPT-10674 Level 4 Est. Patient 14:52:45 WIRE INSPECTOR Baltazar Childers MD [facility] CPT-96486 Level 4 Est. Patient 14:18:34 WIRE INSPECTOR Baltazar Childers MD [facility] CPT-54265 Level 4 Est. Patient 15:18:29 CDT Baltazar Childers MD [facility] CPT-93581 Level 3 Est. Patient 12:45:34 CDT Baltazar Childers MD [facility] CPT-95976 Level 3 Est. Patient 10:10:11 CDT Baltazar Childers MD [facility] CPT-85512 Level 3 Est. Patient 14:07:50 CDT Baltazar Childers MD [facility] CPT-20527 Level 4 Est. Patient 12:26:10 WIRE INSPECTOR Baltazar Childers MD [facility] CPT-06989 Level 4 Est. Patient 14:45:38 CDT Baltazar Childers MD [facility] CPT-34480 Level 4 New Patient 12:30:48 CDT Baltazar hinton MD [facility] Procedures Code Procedure Name Date Entry Date Standard Desc ription CPT-85198 Renal Panel - LAB USE ONLY 17:39:20 CDT 201 10/31/07 CPT-76757 CBC - LAB USE ONLY 17:39:20 CDT CPT-13817 Venipuncture Draw Fee 17:39:20 CDT CPT-72343 Venipuncture Draw Fee 14:33:30 CDT CPT-29744 Renal Panel - LAB USE ONLY 14:33:30 CDT 201 10/31/07 CPT-39426 CBC - LAB USE ONLY 14:33:29 CDT CPT-68755 Venipuncture Draw Fee 14:50:21 WIRE INSPECTOR CPT-35951 Immunization Single Admin 17:35:35 CDT 2014 CPT-35484 Fluzone Quadrivalent preservative free ( >=3yrs.) 17:35:35 CDT CPT-87754 Venipuncture Draw Fee 12:10:27 WIRE INSPECTOR CPT-94952 Fluzone Quadrivalent Intramuscular Suspe nsion 0.5 ML 10:49:13 CDT CPT-42065 First Vx Component - Ix admi n via ID IM or jet inj without physician counseling 15:17:19 WIRE INSPECTOR CPT-08949 Pneumovax 15:17:19 WIRE INSPECTOR CPT-73500 Pneumovax 14:52:45 WIRE INSPECTOR CPT-91835 Venipuncture Draw Fee 14:06:30 WIRE INSPECTOR CPT-000 Give Appropriate Flu Vaccine 14:18:34 WIRE INSPECTOR 2 CPT-05005 Administration single or combination vac cine inc oral 14:46:00 WIRE INSPECTOR CPT-24267 Influenza split virus > age 3 14:46:00 WIRE INSPECTOR CPT-OV Office Visit 19:13:16 CDT CPT-37319 Zostavax 18:41:56 CDT CPT-23307 Administration single or combination vac cine inc oral 12:56:39 CDT CPT-14508 Zoster Vaccine (Zostavax) 12:56:39 CDT 2012 CPT-03132 Venipuncture Draw Fee 10:58:57 CDT CPT-28181 Sono pelvis non OB uterus ovaries cervix 17:45:04 CDT CPT-69356 Sono retroperitoneal complete kidneys an d bladder 17:14:36 CDT CPT-OV Office Visit 14:59:38 WIRE INSPECTOR CPT-J1070 Depo Testosterone 100 mg 14:50:13 CDT 03/05 CPT-43853 Abx/Therapy Injection 14:50:13 CDT CPT-74250 Administration single or combination vac cine inc oral 14:34:43 CDT CPT-39173 Influenza split virus > age 3 14:34:43 CDT CPT-J1070 Depo Testosterone 100 mg 17:37:13 CDT 01/11 CPT-04962 Abx/Therapy Injection 17:37:13 CDT CPT-75454 Venipuncture Draw Fee 16:30:13 CDT CPT-37086 Venipuncture Draw Fee 16:29:43 CDT CPT-J1070 Depo Testosterone 100 mg 14:45:38 CDT 01/11
--- OUTSIDE RECORDS SUMMARY | 2019-10-27 13:01 | XMS REPORT | Clinical Summary ---
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 Benign neoplasm of colon PERIPHERAL NEUROPATHY 356.9 [...] ronary atherosclerosis of unspecified type of vessel, atka or graft OTH NONSPC ABN FINDNG RAD&OTH [...] 1 tab daily for HTN AMLODIPINE BESYLATE 85552453159 Active KENDALL Juarez Active SYNTHROID 0.1 MG TAB 1 tablet by mouth daily LE VOTHYROXINE SODIUM 91796440649 Active Shonna Parker APRN Active GLIPIZIDE 10 MG TAB take 2 tablets twice daily GLIPIZIDE 52630872551 Active Baltazar Childers MD Active SUCRALFATE 1 GM TABS 1 four times a day to coat the stomach 2015 SUCRALFATE 50309675997 No Longer Active Baltazar Childers MD Active PEN NEEDLES 31G X 6 MM MISC use 1 daily INSULIN PEN NEEDLE 08590554270 Active Gato Rae MD Active TOUJEO SOLOSTAR 300 UNIT/ML SC SOPN 10 units SC daily INSULIN GLARGINE 44106588792 No Longer Active Martita Herbert ARGUETA Active LANTUS SOLOSTAR 100 UNIT/ML SC SOPN 10 units SC daily INSULIN GLARGINE 80410780672 Active KENDALL Juarez Active NAPROXEN SODIUM 220 MG ORAL TABS 1 three times a day as needed 2 NAPROXEN SODIUM 38726360702 No Longer Active Baltazar Childers MD Active ATORVASTATIN CALCIUM 20 MG ORAL TABS Take 1 tab daily ATORVASTATIN CALCIUM 67106587499 Active Baltazar Childers MD Active FUROSEMIDE 40 MG TABS Take one by mouth daily FUROSEMIDE 87360457360 Active Baltazar Childers MD Active LISINOPRIL 20 MG TABS Take one by mouth daily at bedtime LISINOPRIL 74056562204 No Longer Active Baltazar Childers MD Active ONETOUCH ULTRA BLUE STRP Test twice a day GLUCO SE BLOOD 69305694523 No Longer Active Baltazar Childers MD Active TRUEPLUS LANCETS 33G MISC Test twice a day LANCET S 40677247179 Active KENDALL Juarez Active TRUEDRAW LANCING DEVICE MISC Test twice a day L ANCET DEVICES 89618363215 Active Baltazar Childers MD Active TRUETRACK TEST STRP Test twice a day GLUCOSE BLOO D 24303876247 Active KENDALL Juarez Active TRUETRACK BLOOD GLUCOSE W/DEVICE KIT Test twice a day BLOOD GLUCOSE MONITORING SUPPL 70056095110 Active Baltazar Childers MD Activ e HYDROCODONE-ACETAMINOPHEN 7.5-325 MG TABS Take 1 tab every 6-8 hour s PRN HYDROCODONE-ACETAMINOPHEN 43050854082 Active Baltazar Childers MD Active NORTRIPTYLINE HCL 50 MG CAPS 1 every night for neuropathy 4 NORTRIPTYLINE HCL 19310799572 Active Baltazar Childers MD Acti ve GABAPENTIN 300 MG CAPS 1 three times a day GABAPE NTIN 42213090200 Active Baltazar Childers MD Active GABAPENTIN 300 MG CAPS 1 po qd x 2 days, then 1 po BID x 2 d ays, then 1 po TID GABAPENTIN 78076096389 No Longer Active Baltazar silverman MD Active TRAMADOL HCL 50 MG TABS 1 twice a day as needed for pain TRAMADOL HCL 17901121485 Active Baltazar Childers MD Active NAPROXEN 500 MG TABS 1 tablet by mouth twice daily NAPROXEN 65930960173 No Longer Active Baltazar Childers MD Active PROAIR HFA 108 (90 BASE) MCG/ACT AERS 2 puffs four times a d ay as needed ALBUTEROL SULFATE 38976216949 Active Baltazar Childers MD Active DEPO-TESTOSTERONE 200 MG/ML OIL as directed RUFINO TOSTERONE CYPIONATE 61954796181 No Longer Active Baltazar Childers MD Active LIPITOR 20 MG TABS Take one by mouth daily in evening ATORVASTATIN CALCIUM 08316567558 No Longer Active Baltazar Childers MD Activ e CRESTOR 10 MG TABS 1 by mouth every day R OSUVASTATIN CALCIUM 59154038696 No Longer Active Baltazar Childers MD Activ e PHENTERMINE HCL 37.5 MG TABS Take one by mouth daily 2 PHENTERMINE HCL 58870658948 No Longer Active Baltazar Childers MD Activ e ROBAXIN-750 750 MG TABS Take one by mouth daily ME THOCARBAMOL 41455395827 Active Baltazar Childers MD Active TIZANIDINE HCL 4 MG TABS 1 daily as needed for muscle spasm 2011 TIZANIDINE HCL 78438118569 No Longer Active Dawna Salazar RN Active [id number] 50-325-40 MG TABS 1 four time s a day as needed for heacache [id number] 23690280258 Active Baltazar Childers MD Active SUMATRIPTAN SUCCINATE 100 MG TABS 1 tablet by mouth at onset of migraine as needed SUMATRIPTAN SUCCINATE 76089649979 Active Shonna richey APRN Active LORATADINE 10 MG TABS Take one by mouth daily LORATADINE 12133667329 Active Bethrenetta Carr KENDALL Active OMEPRAZOLE 20 MG CPDR Take one by mouth daily OMEPRAZOLE 57801348055 Active Baltazar Childers MD Active HYDROXYZINE HCL 25 MG TABS Take one by mouth daily HYDROXYZINE HCL 95572433955 Active Baltazar Childers MD Active ALPRAZOLAM 1 MG TABS 1 tablet by mouth daily at bedtime for restles s leg ALPRAZOLAM 79652983244 Active Baltazar Childers MD Active METFORMIN HCL 1000 MG TABS Take one by mouth twice daily METFORMIN HCL 78421495856 Active Baltazar Childers MD Active TIZANIDINE HCL 4 MG TABS 1 daily as needed for muscle spasm 2011 TIZANIDINE HCL 4 MG TABS 368369 TIZANIDINE HCL Inactiv e PHENTERMINE HCL 37.5 MG TABS Take one by mouth daily 2 PHENTERMINE HCL 37.5 MG TABS 967974 PHENTERMINE HCL Inactive CRESTOR 10 MG TABS 1 by mouth every day C RESTOR 10 MG TABS 526529 ROSUVASTATIN CALCIUM Inactive LIPITOR 20 MG TABS Take one by mouth daily in evening LIPITOR 20 MG TABS 212631 ATORVASTATIN CALCIUM Inactive DEPO-TESTOSTERONE 200 MG/ML OIL as directed 8 DEPO-TESTOSTERONE 200 MG/ML OIL 893488 TESTOSTERONE CYPIONATE Inactive NAPROXEN 500 MG TABS 1 tablet by mouth twice daily 201 07/27/22 NAPROXEN 500 MG TABS 319252 NAPROXEN Inactive GABAPENTIN 300 MG CAPS 1 po qd x 2 days, then 1 po BID x 2 d ays, then 1 po TID GABAPENTIN 300 MG CAPS 746599 GABAPENTIN Inact amie ONETOUCH ULTRA BLUE STRP Test twice a day ONETOUCH ULTRA BLUE STRP GLUCOSE BLOOD Inactive NAPROXEN SODIUM 220 MG ORAL TABS 1 three times a day as needed 2 NAPROXEN SODIUM 220 MG ORAL TABS 088642 NAPROXEN SODIUM Inactive TOUJEO SOLOSTAR 300 UNIT/ML SC SOPN 10 units SC daily TOUJEO SOLOSTAR 300 UNIT/ML SC SOPN INSULIN GLARGINE Inac tive SUCRALFATE 1 GM TABS 1 four times a day to coat the stomach 2015 SUCRALFATE 1 GM TABS 579867 SUCRALFATE Inactive Immunizations Vaccine Administration Date Value Standard Floyd cription pneumococcal immunization administered Pneumovax 23 [CVX33] pneumococcal polysaccharide vaccine, 23 valent Seasonal influenza vaccine, injectable, containing preservative, for > 3 years old (Afluria, FluLaval, Fluzone, Fluvirin, Fluarix, Agriflu(>= 18 yo)) Fluzone (>3 yrs.) [[id number]] Influenza, seasonal, inject able Seasonal influenza vaccine, injectable, containing preservative, for > 3 years old (Afluria, FluLaval, Fluzone, Fluvirin, Fluarix, Agriflu(>= 18 yo)) Fluzone (>3 yrs.) [[id number]] Influenza, seasonal, inject able Vital Signs Date [...] C - Chemistry sodium, serum 143 mmol/L 783-365 8413/06/19 potassium, serum 5.9 mmol/L 3.5-5.2 chloride, serum 105 mmol/L 98-107 carbon dioxide, venous blood 30.2 mmol/L 21.0-32 .0 blood glucose 189 mg/dL 65-110 calcium, serum 9.7 mg/dL 8.5-10.1 urea nitrogen, blood 37 mg/dL 7-18 creatinine, serum 2.11 mg/dL 0.55-1.30 hemoglobin A1C, blood, as % of total hemoglobin 8.2 % 4.3-6.0 Lab Report: CBC, Renal Panel - Chemistry sodium, serum 142 mmol/L 334-477 8840/08/11 potassium, serum 4.8 mmol/L 3.5-5.2 chloride, serum [...] Panel - Chemistry sodium, serum 143 mmol/L 758-565 4808/12/19 carbon dioxide, venous blood 32.5 mmol/L 21.0-32 .0 potassium, serum 4.9 mmol/L 3.5-5.2 chloride, serum 101 mmol/L 98-107 blood glucose 129 mg/dL 65-110 urea nitrogen, blood 18 mg/dL 7-18 creatinine, serum 1.79 mg/dL 0.55-1.30 alanine aminotransferase (SGPT), serum 34 U/L 12-78 aspartate aminotransferase (SGOT), serum 26 U/L 15-37 calcium, serum 8.9 mg/dL 8.5-10.1 bilirubin, serum, total 0.30 mg/dL 0.00-1.00 cholesterol, serum 214 mg/dL 783-855 6601/12/19 triglyceride, serum, fasting 351 mg/dL 30-200 HDL [...] 4.3-6.0 Encounters Code Encounter Date Provider Facility CPT-76956 Level 4 Est. Patient 14:22:31 CDT Baltazar Childers MD [facility] CPT-91271 Level 4 Est. Patient 15:44:38 [facility] Level 4 Est. Patient 11:34:17 CDT Baltazar Childers MD [facility] CPT-65772 Level 3 Est. Patient 16:40:40 CDT Baltazar Childers MD [facility] CPT-26976 Level 4 Est. Patient 10:41:24 CDT Baltazar Childers MD [facility] CPT-87101 Level 4 Est. Patient 16:01:48 CDT Baltazar Childers MD [facility] CPT-99615 Level 4 Est. Patient 16:54:07 PASTORAL COUNSELOR Baltazar Childers MD [facility] CPT-00924 Level 4 Est. Patient 15:42:12 CDT Baltazar Childers MD [facility] CPT-24762 Level 4 Est. Patient 11:29:55 CDT Baltazar Childers MD [facility] CPT-45546 Level 4 Est. Patient 14:15:19 CDT Baltazar Childers MD [facility] CPT-22359 Level 4 Est. Patient 12:20:13 CDT Baltazar Childers MD [facility] CPT-37903 Level 4 Est. Patient 14:52:45 PASTORAL COUNSELOR Baltazar Childers MD [facility] CPT-30867 Level 4 Est. Patient 14:18:34 PASTORAL COUNSELOR Baltazar Childers MD [facility] CPT-62025 Level 4 Est. Patient 15:18:29 CDT Baltazar Childers MD [facility] CPT-16958 Level 3 Est. Patient 12:45:34 CDT Baltazar Childers MD [facility] CPT-54598 Level 3 Est. Patient 10:10:11 CDT Baltazar Childers MD [facility] CPT-39635 Level 3 Est. Patient 14:07:50 CDT Baltazar Childers MD [facility] CPT-57159 Level 4 Est. Patient 12:26:10 PASTORAL COUNSELOR Baltazar Childers MD [facility] CPT-03722 Level 4 Est. Patient 14:45:38 CDT Baltazar Childers MD [facility] CPT-06726 Level 4 New Patient 12:30:48 CDT Baltazar hinton MD [facility] Procedures Code Procedure Name Date Entry Date Standard Desc ription CPT-52725 Venipuncture Draw Fee 12:04:12 CDT CPT-31488 Lipid - LAB USE ONLY 17:39:15 PASTORAL COUNSELOR 9 CPT-60168 HGBA1C - LAB USE ONLY 17:39:15 PASTORAL COUNSELOR CPT-36110 CMP - LAB USE ONLY 17:39:14 PASTORAL COUNSELOR CPT-80111 Venipuncture Draw Fee 17:39:14 PASTORAL COUNSELOR CPT-51977 First Vx - Ix admin via ID I M or jet injects without counseling by physician 16:55:17 PASTORAL COUNSELOR CPT-59902 Fluzone Quadrivalent Intramuscular Suspe nsion 0.5 ML 16:55:17 PASTORAL COUNSELOR CPT-61721 Renal Panel - LAB USE ONLY 17:39:20 CDT 201 10/31/07 CPT-75543 CBC - LAB USE ONLY 17:39:20 CDT CPT-06579 Venipuncture Draw Fee 17:39:20 CDT CPT-91216 Venipuncture Draw Fee 14:33:30 CDT CPT-24333 Renal Panel - LAB USE ONLY 14:33:30 CDT 201 10/31/07 CPT-43163 CBC - LAB USE ONLY 14:33:29 CDT CPT-45539 Venipuncture Draw Fee 14:50:21 PASTORAL COUNSELOR CPT-99089 Immunization Single Admin 17:35:35 CDT 2014 CPT-35758 Fluzone Quadrivalent preservative free ( >=3yrs.) 17:35:35 CDT CPT-57579 Venipuncture Draw Fee 12:10:27 PASTORAL COUNSELOR CPT-03814 Fluzone Quadrivalent Intramuscular Suspe nsion 0.5 ML 10:49:13 CDT CPT-58227 First Vx Component - Ix admi n via ID IM or jet inj without physician counseling 15:17:19 PASTORAL COUNSELOR CPT-59214 Pneumovax 23 15:17:19 PASTORAL COUNSELOR CPT-49551 Pneumovax 14:52:45 PASTORAL COUNSELOR CPT-63365 Venipuncture Draw Fee 14:06:30 PASTORAL COUNSELOR CPT-000 Give Appropriate Flu Vaccine 14:18:34 PASTORAL COUNSELOR 2 CPT-47101 Administration single or combination vac cine inc oral 14:46:00 PASTORAL COUNSELOR CPT-63325 Influenza split virus > age 3 14:46:00 PASTORAL COUNSELOR CPT-OV Office Visit 19:13:16 CDT CPT-30923 Zostavax 18:41:56 CDT CPT-86555 Administration single or combination vac cine inc oral 12:56:39 CDT CPT-51661 Zoster Vaccine (Zostavax) 12:56:39 CDT 2012 CPT-51647 Venipuncture Draw Fee 10:58:57 CDT CPT-75771 Sono pelvis non OB uterus ovaries cervix 17:45:04 CDT CPT-04351 Sono retroperitoneal complete kidneys an d bladder 17:14:36 CDT CPT-OV Office Visit 14:59:38 PASTORAL COUNSELOR CPT-J1070 Depo Testosterone 100 mg 14:50:13 CDT 03/05 CPT-43619 Abx/Therapy Injection 14:50:13 CDT CPT-29398 Administration single or combination vac cine inc oral 14:34:43 CDT CPT-81206 Influenza split virus > age 3 14:34:43 CDT CPT-J1070 Depo Testosterone 100 mg 17:37:13 CDT 01/11 CPT-56695 Abx/Therapy Injection 17:37:13 CDT CPT-95873 Venipuncture Draw Fee 16:30:13 CDT CPT-21172 Venipuncture Draw Fee 16:29:43 CDT CPT-J1070 Depo Testosterone 100 mg 14:45:38 CDT 01/11
--- OUTSIDE RECORDS SUMMARY | 2019-10-27 13:01 | XMS REPORT | Clinical Summary ---
Author Author Admin, Elba Lance [facility] Address Unknown Phone Unavailable Allergies, 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 RN TRIAGE Benign neoplasm of colon PERIPHERAL NEUROPATHY 356.9 [...] three times a day 201 12/03/26 GABAPENTIN 86285466179 No Longer Active Baltazar Childers MD Activ e LISINOPRIL 20 MG ORAL TABLET 1 tablet by mouth daily at night 2016 LISINOPRIL 79385306972 Active Baltazar Childers MD Active ZITHROMAX Z-ISAIAS 250 MG ORAL TABLET Take two tablets to day and then 1 tablet daily for 4 days AZITHROMYCIN 05534945119 No Longer A ctive Baltazar Childers MD Active LANTUS SOLOSTAR 100 UNIT/ML SUBCUTANEOUS SOLUTION PEN- INJECTOR 30 units SC daily INSULIN GLARGINE 03715299137 Active Baltazar Childers MD Active AMLODIPINE BESYLATE 5 MG ORAL TABLET 1 tab daily for HTN AMLODIPINE BESYLATE 40480486892 Active Baltazar Childers MD Active SYNTHROID 100 MCG ORAL TABLET 1 tablet by mouth daily LEVOTHYROXINE SODIUM 32559040750 Active Baltazar Childers MD Active GLIPIZIDE 10 MG ORAL TABLET take 2 tablets twice daily GLIPIZIDE 96306711285 Active Baltazar Childers MD Active SUCRALFATE 1 GM ORAL TABLET 1 four times a day to coat the stoma ch SUCRALFATE 34700394993 No Longer Active Baltazar Childers MD Active PEN NEEDLES 31G X 6 MM use 1 daily INSULIN PEN NE EDLE 58372672148 Active KENDALL Juarez Active CELINA POWERSOSTNAKITA 300 UNIT/ML SUBCUTANEOUS SOLUTION PEN- INJECTOR 10 units SC daily INSULIN GLARGINE 67301896100 No Longer Active Rola Godinez RMA Active NAPROXEN SODIUM 220 MG ORAL TABLET 1 three times a day as needed NAPROXEN SODIUM 66177824613 No Longer Active Baltazar Childers MD Active ATORVASTATIN CALCIUM 20 MG ORAL TABLET Take 1 tab daily ATORVASTATIN CALCIUM 17282691881 Active Baltazar Childers MD A ctive FUROSEMIDE 40 MG ORAL TABLET Take one by mouth daily FUROSEMIDE 65624650451 Active Jessy Arellano LPN Active LISINOPRIL 20 MG ORAL TABLET Take one by mouth daily at bedtime LISINOPRIL 10631830993 No Longer Active Baltazar Childers MD Active ONETOUCH ULTRA BLUE IN VITRO STRIP Test twice a day 07/11/11 GLUCOSE BLOOD 64652923574 No Longer Active Baltazar Childers MD Acti ve TRUEPLUS LANCETS 33G Test twice a day LANCETS 2611114 7237 Active KENDALL Juarez Active TRUEDRAW LANCING DEVICE Test twice a day LANCET DEVICES 67419245309 Active Baltazar Childers MD Active TRUETRACK TEST IN VITRO STRIP Test twice a day GLUCOSE BLOOD 56341272372 Active KENDALL Juarez Active TRUETRACK BLOOD GLUCOSE w/Device KIT Test twice a day BLOOD GLUCOSE MONITORING SUPPL 07976131255 Active Baltazar Childers MD Activ e HYDROCODONE-ACETAMINOPHEN 7.5-325 MG ORAL TABLET Take 1 tab every 6-8 hours PRN HYDROCODONE-ACETAMINOPHEN 41927248970 Active Baltazar Nickerson MD Active NORTRIPTYLINE HCL 50 MG ORAL CAPSULE 1 every night for neuropathy 2 NORTRIPTYLINE HCL 53804757895 Active Baltazar Childers MD Acti ve GABAPENTIN 300 MG ORAL CAPSULE 1 po qd x 2 days, then 1 po BID x 2 days, then 1 po TID GABAPENTIN 12232587525 No Longer Active Baltazar Childers MD Active TRAMADOL HCL 50 MG ORAL TABLET 1 twice a day as needed for pain 201 07/27/28 TRAMADOL HCL 19436165703 Active Baltazar Childers MD Active NAPROXEN 500 MG ORAL TABLET 1 tablet by mouth twice daily NAPROXEN 22702913299 No Longer Active Baltazar Childers MD Active PROAIR HFA 108 (90 Base) MCG/ACT INHALATION AEROSOL SO LUTION 2 puffs four times a day as needed ALBUTEROL SULFATE 54079796175 Active Paul Childers MD Active DEPO-TESTOSTERONE 200 MG/ML INTRAMUSCULAR SOLUTION as directed TESTOSTERONE CYPIONATE 96324758285 No Longer Active Baltazar Childers MD Active LIPITOR 20 MG ORAL TABLET Take one by mouth daily in evening ATORVASTATIN CALCIUM 38092970382 No Longer Active Baltazar Childers MD Active CRESTOR 10 MG ORAL TABLET 1 by mouth every day ROSUVASTATIN CALCIUM 53377632865 No Longer Active Baltazar Childers MD Active PHENTERMINE HCL 37.5 MG ORAL TABLET Take one by mouth daily PHENTERMINE HCL 58919859852 No Longer Active Baltazar Childers MD Ac tive ROBAXIN-750 750 MG ORAL TABLET Take one by mouth daily METHOCARBAMOL 61942533769 Active Baltazar Childers MD Active TIZANIDINE HCL 4 MG ORAL TABLET 1 daily as needed for muscle spa sm TIZANIDINE HCL 29592902152 No Longer Active Dawna Salazar RN Active [id number] 50-325-40 MG ORAL TABLET 1 fo ur times a day as needed for heacache [id number] 69302925718 Active Baltazar Childers MD Active SUMATRIPTAN SUCCINATE 100 MG ORAL TABLET 1 tablet by m outh at onset of migraine as needed SUMATRIPTAN SUCCINATE 72007867900 Active KENDALL Restrepo Active LORATADINE 10 MG ORAL TABLET Take one by mouth daily LORATADINE 52843911579 Active Baltazar Childers MD Active OMEPRAZOLE 20 MG ORAL CAPSULE DELAYED RELEASE Take one by mouth jostin ly OMEPRAZOLE 79640488543 Active Baltazar Childers MD Active HYDROXYZINE HCL 25 MG ORAL TABLET Take one by mouth daily HYDROXYZINE HCL 00674187614 Active Baltazar Childers MD Active ALPRAZOLAM 1 MG ORAL TABLET 1 [facility] 85029447976 Active Baltazar Childers MD Active METFORMIN HCL 1000 MG ORAL TABLET Take one by mouth twice daily METFORMIN HCL 53879960595 Active Baltazar Childers MD Active TIZANIDINE HCL 4 MG ORAL TABLET 1 daily as needed for muscle spa sm TIZANIDINE HCL 4 MG ORAL TABLET 578993 TIZANIDINE HCL Inactive PHENTERMINE HCL 37.5 MG ORAL TABLET Take one by mouth daily PHENTERMINE HCL 37.5 MG ORAL TABLET 454921 PHENTERMINE HCL Inac tive CRESTOR 10 MG ORAL TABLET 1 by mouth every day CRESTOR 10 MG ORAL TABLET 278638 ROSUVASTATIN CALCIUM Inactive LIPITOR 20 MG ORAL TABLET Take one by mouth daily in evening LIPITOR 20 MG ORAL TABLET 717929 ATORVASTATIN CALCIUM Inactive DEPO-TESTOSTERONE 200 MG/ML INTRAMUSCULAR SOLUTION as directed DEPO-TESTOSTERONE 200 MG/ML INTRAMUSCULAR SOLUTION 122392 RUFINO TOSTERONE CYPIONATE Inactive NAPROXEN 500 MG ORAL TABLET 1 tablet by mouth twice daily NAPROXEN 500 MG ORAL TABLET 099024 NAPROXEN Inactive GABAPENTIN 300 MG ORAL CAPSULE 1 po qd x 2 days, then 1 po BID x 2 days, then 1 po TID GABAPENTIN 300 MG ORAL CAPSULE 845339 GABAP ENTIN Inactive ONETOUCH ULTRA BLUE IN VITRO STRIP Test twice a day 07/11/11 ONETOUCH ULTRA BLUE IN VITRO STRIP GLUCOSE BLOOD Inact amie NAPROXEN SODIUM 220 MG ORAL TABLET 1 three times a day as needed NAPROXEN SODIUM 220 MG ORAL TABLET 857268 NAPROXEN SODI UM Inactive TOUJEO SOLOSTAR 300 UNIT/ML SUBCUTANEOUS SOLUTION PEN- INJECTOR 10 units SC daily TOUJEO SOLOSTAR 300 UNIT/ML SUBCUTANEOUS SOLUTION PEN-INJECTOR INSULIN GLARGINE Inactive SUCRALFATE 1 GM ORAL TABLET 1 four times a day to coat the stoma ch SUCRALFATE 1 GM ORAL TABLET 647522 SUCRALFATE Inac tive GABAPENTIN 300 MG ORAL CAPSULE 1 three times a day 201 12/03/26 GABAPENTIN 300 MG ORAL CAPSULE 931447 GABAPENTIN Inactive ZITHROMAX Z-ISAIAS 250 MG ORAL TABLET Take two tablets to day and then 1 tablet daily for 4 days ZITHROMAX Z-ISAIAS 250 MG ORAL TAB LET 618950 AZITHROMYCIN Inactive Immunizations Vaccine Administration Date Value Standard Floyd cription pneumococcal immunization administered Pneumovax 23 [CVX33] pneumococcal polysaccharide vaccine, 23 valent Seasonal influenza vaccine, injectable, containing preservative, for > 3 years old (Afluria, FluLaval, Fluzone, Fluvirin, Fluarix, Agriflu(>= 18 yo)) Fluzone (>3 yrs.) [[id number]] Influenza, seasonal, inject able Seasonal influenza vaccine, injectable, containing preservative, for > 3 years old (Afluria, FluLaval, Fluzone, Fluvirin, Fluarix, Agriflu(>= 18 yo)) Fluzone (>3 yrs.) [[id number]] Influenza, seasonal, inject able Vital Signs Date [...] - Chem istry sodium, serum 139 mmol/L 787-008 6347/10/03 potassium, serum 4.7 mmol/L 3.5-5.2 chloride, serum 98 mmol/L 98-107 carbon dioxide, venous blood 28.7 mmol/L 21.0-32 .0 blood glucose 218 mg/dL 65-110 calcium, serum 9.8 mg/dL 8.5-10.1 urea nitrogen, blood 19 mg/dL 7-18 creatinine, serum 1.68 mg/dL 0.60-1.30 Lab Report: Basic Metabolic Panel, HGBA1 C - Chemistry sodium, serum 143 mmol/L 660-464 0726/06/19 potassium, serum 5.9 mmol/L 3.5-5.2 chloride, serum 105 mmol/L 98-107 carbon dioxide, venous blood 30.2 mmol/L 21.0-32 .0 blood glucose 189 mg/dL 65-110 calcium, serum 9.7 mg/dL 8.5-10.1 urea nitrogen, blood 37 mg/dL 7-18 creatinine, serum 2.11 mg/dL 0.55-1.30 hemoglobin A1C, blood, as % of total hemoglobin 8.2 % 4.3-6.0 Lab Report: CBC, Renal Panel - Chemistry sodium, serum 142 mmol/L 737-833 9348/08/11 potassium, serum 4.8 mmol/L 3.5-5.2 chloride, serum [...] (L) - Chemistry cholesterol, serum 209 mg/dL 371-224 6216/12/27 triglyceride, serum, fasting 329 mg/dL 30-200 HDL cholesterol, serum 56 mg/dL 32-60 LDL cholesterol, serum 87 mg/dL 0-130 TSH 3.60 m[iU]/mL 0.36-3.74 Encounters Code Encounter Date Provider Facility CPT-90947 Level 4 Est. Patient 16:21:19 [facility] Baltazar Childers MD [facility] CPT-80008 Level 4 Est. Patient 12:25:11 CDT Baltazar Childers MD [facility]-08607 Level 4 Est. Patient 14:22:31 CDT Baltazar Childers MD [facility]-60822 Level 4 Est. Patient 15:44:38 CDT Shonnajean Parker APRN [facility]-58398 Level 4 Est. Patient 11:34:17 CDT Baltazar Childers MD [facility]-61538 Level 3 Est. Patient 16:40:40 CDT Baltazar Childers MD [facility]-56293 Level 4 Est. Patient 10:41:24 CDT Baltazar Childers MD [facility]-62345 Level 4 Est. Patient 16:01:48 CDT Baltazar hCilders MD [facility]-00521 Level 4 Est. Patient 16:54:07 [facility] [employer] Baltazar Childers MD [facility]-23511 Level 4 Est. Patient 15:42:12 CDT Baltazar Childers MD [facility] CPT-60561 Level 4 Est. Patient 11:29:55 CDT Baltazar Childers MD [facility]-94350 Level 4 Est. Patient 14:15:19 CDT Baltazar Childers MD [facility]-34249 Level 4 Est. Patient 12:20:13 CDT Baltazar Childers MD [facility] CPT-53165 Level 4 Est. Patient 14:52:45 [employer] [employer] Baltazar Childers MD [facility] CPT-09747 Level 4 Est. Patient 14:18:34 [employer] [employer] Baltazar Childers MD [facility]-50742 Level 4 Est. Patient 15:18:29 CDT Baltazar Childers MD [facility]-76304 Level 3 Est. Patient 12:45:34 CDT Baltazar Childers MD [facility] CPT-13422 Level 3 Est. Patient 10:10:11 CDT Baltazar Childers MD [facility] CPT-66547 Level 3 Est. Patient 14:07:50 CDT Baltazar Childers MD [facility] CPT-03192 Level 4 Est. Patient 12:26:10 [employer] [employer] Baltazar Childers MD [facility] CPT-00124 Level 4 Est. Patient 14:45:38 CDT Baltazar Childers MD [facility] CPT-67347 Level 4 New Patient 12:30:48 CDT Baltazar hinton MD [facility] Procedures Code Procedure Name Date Entry Date Standard Desc ription CPT-93207 First Vx - Ix admin via ID I M or jet injects without counseling by physician 13:08:59 CDT CPT-83047 Fluzone Quadrivalent Intramuscular Suspe nsion 0.5 ML 13:08:59 CDT CPT-40757 Venipuncture Draw Fee 12:04:12 CDT CPT-32773 Lipid - LAB USE ONLY 17:39:15 [facility] 9 CPT-64265 HGBA1C - LAB USE ONLY 17:39:15 [facility] CPT-76184 CMP - LAB USE ONLY 17:39:14 [facility] CPT-06205 Venipuncture Draw Fee 17:39:14 [facility] CPT-83513 First Vx - Ix admin via ID I M or jet injects without counseling by physician 16:55:17 [facility] CPT-65353 Fluzone Quadrivalent Intramuscular Suspe nsion 0.5 ML 16:55:17 [facility] CPT-24450 Renal Panel - LAB USE ONLY 17:39:20 CDT 201 10/31/07 CPT-09441 CBC - LAB USE ONLY 17:39:20 CDT CPT-04650 Venipuncture Draw Fee 17:39:20 CDT CPT-68360 Venipuncture Draw Fee 14:33:30 CDT CPT-54724 Renal Panel - LAB USE ONLY 14:33:30 CDT 201 10/31/07 CPT-64333 CBC - LAB USE ONLY 14:33:29 CDT CPT-50637 Venipuncture Draw Fee 14:50:21 [facility] CPT-51701 Immunization Single Admin 17:35:35 CDT 2014 CPT-95966 Fluzone Quadrivalent preservative free ( >=3yrs.) 17:35:35 CDT CPT-98184 Venipuncture Draw Fee 12:10:27 [employer] CPT-78941 Fluzone Quadrivalent Intramuscular Suspe nsion 0.5 ML 10:49:13 CDT CPT-23543 First Vx Component - Ix admi n via ID IM or jet inj without physician counseling 15:17:19 [facility] CPT-05239 Pneumovax 23 15:17:19 [employer] [employer] CPT-95440 Pneumovax 14:52:45 [employer] CPT-43674 Venipuncture Draw Fee 14:06:30 [facility] CPT-000 Give Appropriate Flu Vaccine 14:18:34 [facility] 2 CPT-61768 Administration single or combination vac cine inc oral 14:46:00 [employer] CPT-84648 Influenza split virus > age 3 14:46:00 [facility] HEAD CPT-OV Office Visit 19:13:16 CDT CPT-50035 Zostavax 18:41:56 CDT CPT-44304 Administration single or combination vac cine inc oral 12:56:39 CDT CPT-47607 Zoster Vaccine (Zostavax) 12:56:39 CDT 2012 CPT-35382 Venipuncture Draw Fee 10:58:57 CDT CPT-27642 Sono pelvis non OB uterus ovaries cervix 17:45:04 CDT CPT-28124 Sono retroperitoneal complete kidneys an d bladder 17:14:36 CDT CPT-OV Office Visit 14:59:38 [facility] CPT-J1070 Depo Testosterone 100 mg 14:50:13 CDT 03/05 CPT-04788 Abx/Therapy Injection 14:50:13 CDT CPT-98190 Administration single or combination vac cine inc oral 14:34:43 CDT CPT-70792 Influenza split virus > age 3 14:34:43 CDT CPT-J1070 Depo Testosterone 100 mg 17:37:13 CDT 01/11 CPT-67949 Abx/Therapy Injection 17:37:13 CDT CPT-77921 Venipuncture Draw Fee 16:30:13 CDT CPT-87815 Venipuncture Draw Fee 16:29:43 CDT CPT-J1070 Depo Testosterone 100 mg 14:45:38 CDT 01/11
--- OUTSIDE RECORDS SUMMARY | 2019-10-27 13:01 | XMS REPORT | Clinical Summary ---
Author Author Admin, Elba Lance [facility] Address Unknown Phone Unavailable Allergies, 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 [employer] Benign neoplasm of colon PERIPHERAL NEUROPATHY [...] 1 tablet daily for 4 days AZITHROMYCIN 01238249292 No Longer A ctive Baltazar Childers MD Active LANTUS SOLOSTAR 100 UNIT/ML SUBCUTANEOUS SOLUTION PEN- INJECTOR 30 units SC daily INSULIN GLARGINE 74164713591 Active Baltazar Childers MD Active AMLODIPINE BESYLATE 5 MG ORAL TABLET 1 tab daily for HTN AMLODIPINE BESYLATE 63294293178 Active Baltazar Childers MD Active SYNTHROID 100 MCG ORAL TABLET 1 tablet by mouth daily LEVOTHYROXINE SODIUM 82676630778 Active Baltazar Childers MD Active GLIPIZIDE 10 MG ORAL TABLET take 2 tablets twice daily GLIPIZIDE 08737701345 Active Baltazar Childers MD Active SUCRALFATE 1 GM ORAL TABLET 1 four times a day to coat the stoma ch SUCRALFATE 41178790610 No Longer Active Baltazar Childers MD Active PEN NEEDLES 31G X 6 MM use 1 daily INSULIN PEN NE EDLE 66326916769 Active KENDALL Juarez Active TOUJEO SOLOSTAR 300 UNIT/ML SUBCUTANEOUS SOLUTION PEN- INJECTOR 10 units SC daily INSULIN GLARGINE 13406376689 No Longer Active Rola ARGUETA Active NAPROXEN SODIUM 220 MG ORAL TABLET 1 three times a day as needed NAPROXEN SODIUM 31216052479 No Longer Active Baltazar Childers MD Active ATORVASTATIN CALCIUM 20 MG ORAL TABLET Take 1 tab daily ATORVASTATIN CALCIUM 83009921918 Active Baltazar Childers MD A ctive FUROSEMIDE 40 MG ORAL TABLET Take one by mouth daily FUROSEMIDE 82977446993 Active Jessy Arellano LPN Active LISINOPRIL 20 MG ORAL TABLET Take one by mouth daily at bedtime LISINOPRIL 19484479863 No Longer Active Baltazar Childers MD Active ONETOUCH ULTRA BLUE IN VITRO STRIP Test twice a day 07/11/11 GLUCOSE BLOOD 29256713331 No Longer Active Baltazar Childers MD Acti ve TRUEPLUS LANCETS 33G Test twice a day LANCETS 2625349 6487 Active KENDALL Juarez Active TRUEDRAW LANCING DEVICE Test twice a day LANCET DEVICES 46753577304 Active Baltazar Childers MD Active TRUETRACK TEST IN VITRO STRIP Test twice a day GLUCOSE BLOOD 73590509732 Active KENDALL Juarez Active TRUETRACK BLOOD GLUCOSE w/Device KIT Test twice a day BLOOD GLUCOSE MONITORING SUPPL 56463442815 Active Baltazar Childers MD Activ e HYDROCODONE-ACETAMINOPHEN 7.5-325 MG ORAL TABLET Take 1 tab every 6-8 hours PRN HYDROCODONE-ACETAMINOPHEN 24765385440 Active Baltazar Nickerson MD Active NORTRIPTYLINE HCL 50 MG ORAL CAPSULE 1 every night for neuropathy 2 NORTRIPTYLINE HCL 69420103342 Active Baltazar Childers MD Acti ve GABAPENTIN 300 MG ORAL CAPSULE 1 three times a day GABAPENTIN 99747014207 Active Baltazar Childers MD Active GABAPENTIN 300 MG ORAL CAPSULE 1 po qd x 2 days, then 1 po BID x 2 days, then 1 po TID GABAPENTIN 66214695997 No Longer Active Baltazar Childers MD Active TRAMADOL HCL 50 MG ORAL TABLET 1 twice a day as needed for pain 201 07/27/28 TRAMADOL HCL 51428245258 Active Baltazar Childers MD Active NAPROXEN 500 MG ORAL TABLET 1 tablet by mouth twice daily NAPROXEN 76453754244 No Longer Active Baltazar Childers MD Active PROAIR HFA 108 (90 Base) MCG/ACT INHALATION AEROSOL SO LUTION 2 puffs four times a day as needed ALBUTEROL SULFATE 21977468336 Active Paul Childers MD Active DEPO-TESTOSTERONE 200 MG/ML INTRAMUSCULAR SOLUTION as directed TESTOSTERONE CYPIONATE 65634944402 No Longer Active Baltazar Childers MD Active LIPITOR 20 MG ORAL TABLET Take one by mouth daily in evening ATORVASTATIN CALCIUM 86416302181 No Longer Active Baltazar Childers MD Active CRESTOR 10 MG ORAL TABLET 1 by mouth every day ROSUVASTATIN CALCIUM 51204201874 No Longer Active Baltazar Childers MD Active PHENTERMINE HCL 37.5 MG ORAL TABLET Take one by mouth daily PHENTERMINE HCL 88558074003 No Longer Active Baltazar Childers MD Ac tive ROBAXIN-750 750 MG ORAL TABLET Take one by mouth daily METHOCARBAMOL 54019335730 Active Baltazar Childers MD Active TIZANIDINE HCL 4 MG ORAL TABLET 1 daily as needed for muscle spa sm TIZANIDINE HCL 33865567180 No Longer Active Dawna Salazar RN Active [id number] 50-325-40 MG ORAL TABLET 1 fo ur times a day as needed for heacache [id number] 71310530875 Active Baltazar Chliders MD Active SUMATRIPTAN SUCCINATE 100 MG ORAL TABLET 1 tablet by m outh at onset of migraine as needed SUMATRIPTAN SUCCINATE 01878024179 Active Bertha Vazquez LPN Active LORATADINE 10 MG ORAL TABLET Take one by mouth daily LORATADINE 40375158055 Active Baltazar Childers MD Active OMEPRAZOLE 20 MG ORAL CAPSULE DELAYED RELEASE Take one by mouth jostin ly OMEPRAZOLE 72367856691 Active Baltazar Childers MD Active HYDROXYZINE HCL 25 MG ORAL TABLET Take one by mouth daily HYDROXYZINE HCL 03430532148 Active Baltazar Childers MD Active ALPRAZOLAM 1 MG ORAL TABLET 1 tablet by mouth [facility] ALPRAZOLAM 96428568484 Active Baltazar Childers MD Active METFORMIN HCL 1000 MG ORAL TABLET Take one by mouth twice daily METFORMIN HCL 75787898718 Active Baltazar Childers MD Active TIZANIDINE HCL 4 MG ORAL TABLET 1 daily as needed for muscle spa sm TIZANIDINE HCL 4 MG ORAL TABLET 761244 TIZANIDINE HCL Inactive PHENTERMINE HCL 37.5 MG ORAL TABLET Take one by mouth daily PHENTERMINE HCL 37.5 MG ORAL TABLET 753856 PHENTERMINE HCL Inac tive CRESTOR 10 MG ORAL TABLET 1 by mouth every day CRESTOR 10 MG ORAL TABLET 526856 ROSUVASTATIN CALCIUM Inactive LIPITOR 20 MG ORAL TABLET Take one by mouth daily in evening LIPITOR 20 MG ORAL TABLET 225482 ATORVASTATIN CALCIUM Inactive DEPO-TESTOSTERONE 200 MG/ML INTRAMUSCULAR SOLUTION as directed DEPO-TESTOSTERONE 200 MG/ML INTRAMUSCULAR SOLUTION 067533 RUFINO TOSTERONE CYPIONATE Inactive NAPROXEN 500 MG ORAL TABLET 1 tablet by mouth twice daily NAPROXEN 500 MG ORAL TABLET 110315 NAPROXEN Inactive GABAPENTIN 300 MG ORAL CAPSULE 1 po qd x 2 days, then 1 po BID x 2 days, then 1 po TID GABAPENTIN 300 MG ORAL CAPSULE 646268 GABAP ENTIN Inactive ONETOUCH ULTRA BLUE IN VITRO STRIP Test twice a day 07/11/11 ONETOUCH ULTRA BLUE IN VITRO STRIP GLUCOSE BLOOD Inact amie NAPROXEN SODIUM 220 MG ORAL TABLET 1 three times a day as needed NAPROXEN SODIUM 220 MG ORAL TABLET 891698 NAPROXEN SODI UM Inactive TOUJEO SOLOSTAR 300 UNIT/ML SUBCUTANEOUS SOLUTION PEN- INJECTOR 10 units SC daily TOUJEO SOLOSTAR 300 UNIT/ML SUBCUTANEOUS SOLUTION PEN-INJECTOR INSULIN GLARGINE Inactive SUCRALFATE 1 GM ORAL TABLET 1 four times a day to coat the stoma ch SUCRALFATE 1 GM ORAL TABLET 192804 SUCRALFATE Inac tive ZITHROMAX Z-ISAIAS 250 MG ORAL TABLET Take two tablets to day and then 1 tablet daily for 4 days ZITHROMAX Z-ISAIAS 250 MG ORAL TAB LET 959280 AZITHROMYCIN Inactive Immunizations Vaccine Administration Date Value Standard Floyd cription pneumococcal immunization administered Pneumovax 23 [CVX33] pneumococcal polysaccharide vaccine, 23 valent Seasonal influenza vaccine, injectable, containing preservative, for > 3 years old (Afluria, FluLaval, Fluzone, Fluvirin, Fluarix, Agriflu(>= 18 yo)) Fluzone (>3 yrs.) [[id number]] Influenza, seasonal, inject able Seasonal influenza vaccine, injectable, containing preservative, for > 3 years old (Afluria, FluLaval, Fluzone, Fluvirin, Fluarix, Agriflu(>= 18 yo)) Fluzone (>3 yrs.) [[id number]] Influenza, seasonal, inject able Vital Signs Date [...] - Chem istry sodium, serum 139 mmol/L 035-645 0322/10/03 potassium, serum 4.7 mmol/L 3.5-5.2 chloride, serum 98 mmol/L 98-107 carbon dioxide, venous blood 28.7 mmol/L 21.0-32 .0 blood glucose 218 mg/dL 65-110 calcium, serum 9.8 mg/dL 8.5-10.1 urea nitrogen, blood 19 mg/dL 7-18 creatinine, serum 1.68 mg/dL 0.60-1.30 Lab Report: Basic Metabolic Panel, HGBA1 C - Chemistry sodium, serum 143 mmol/L 614-737 6308/06/19 potassium, serum 5.9 mmol/L 3.5-5.2 chloride, serum 105 mmol/L 98-107 carbon dioxide, venous blood 30.2 mmol/L 21.0-32 .0 blood glucose 189 mg/dL 65-110 calcium, serum 9.7 mg/dL 8.5-10.1 urea nitrogen, blood 37 mg/dL 7-18 creatinine, serum 2.11 mg/dL 0.55-1.30 hemoglobin A1C, blood, as % of total hemoglobin 8.2 % 4.3-6.0 Lab Report: CBC, Renal Panel - Chemistry sodium, serum 142 mmol/L 319-251 4210/08/11 potassium, serum 4.8 mmol/L 3.5-5.2 chloride, serum [...] Panel - Chemistry sodium, serum 143 mmol/L 335-693 2213/12/19 carbon dioxide, venous blood 32.5 mmol/L 21.0-32 .0 potassium, serum 4.9 mmol/L 3.5-5.2 chloride, serum 101 mmol/L 98-107 blood glucose 129 mg/dL 65-110 urea nitrogen, blood 18 mg/dL 7-18 creatinine, serum 1.79 mg/dL 0.55-1.30 alanine aminotransferase (SGPT), serum 34 U/L 12-78 aspartate aminotransferase (SGOT), serum 26 U/L 15-37 calcium, serum 8.9 mg/dL 8.5-10.1 bilirubin, serum, total 0.30 mg/dL 0.00-1.00 cholesterol, serum 214 mg/dL 993-939 9271/12/19 triglyceride, serum, fasting 351 mg/dL 30-200 HDL [...] 4.3-6.0 Encounters Code Encounter Date Provider Facility CPT-22715 Level 4 Est. Patient 12:25:11 CDT Baltazar Childers MD [facility]-36389 Level 4 Est. Patient 14:22:31 CDT Baltazar Childers MD [facility]-99953 Level 4 Est. Patient 15:44:38 CDT Shonna Elena CASTELLANOS [facility] CPT-18156 Level 4 Est. Patient 11:34:17 CDT Baltazar Childers MD [facility]-88724 Level 3 Est. Patient 16:40:40 CDT Baltazar Childers MD [facility]-78002 Level 4 Est. Patient 10:41:24 CDT Baltazar Childers MD [facility]-41864 Level 4 Est. Patient 16:01:48 CDT Baltazar Childers MD [facility]-22007 Level 4 Est. Patient 16:54:07 [employer] Baltazar Childers MD [facility]-46747 Level 4 Est. Patient 15:42:12 CDT Baltazar Childers MD [facility] CPT-34785 Level 4 Est. Patient 11:29:55 CDT Baltazar Childers MD [facility]-39295 Level 4 Est. Patient 14:15:19 CDT Baltazar Childers MD [facility] CPT-30317 Level 4 Est. Patient 12:20:13 CDT Baltazar Childers MD [facility] CPT-29741 Level 4 Est. Patient 14:52:45 [employer] INSPECT[employer] Baltazar Childers MD [facility] CPT-70091 Level 4 Est. Patient 14:18:34 [employer] Baltazar Childers MD [facility]-95583 Level 4 Est. Patient 15:18:29 CDT Baltazar Childers MD [facility] CPT-98283 Level 3 Est. Patient 12:45:34 CDT Baltazar Childers MD [facility] CPT-04934 Level 3 Est. Patient 10:10:11 CDT Baltazar Childers MD [facility] CPT-90901 Level 3 Est. Patient 14:07:50 CDT Baltazar Childers MD [facility] CPT-29314 Level 4 Est. Patient 12:26:10 [employer] INSPECT[employer] Baltazar Childers MD [facility] CPT-01824 Level 4 Est. Patient 14:45:38 CDT Baltazar Childers MD [facility] CPT-45785 Level 4 New Patient 12:30:48 CDT Baltazar hinton MD [facility] Procedures Code Procedure Name Date Entry Date Standard Desc ription CPT-54434 First Vx - Ix admin via ID I M or jet injects without counseling by physician 13:08:59 CDT CPT-69337 Fluzone Quadrivalent Intramuscular Suspe nsion 0.5 ML 13:08:59 CDT CPT-45107 Venipuncture Draw Fee 12:04:12 CDT CPT-45588 Lipid - LAB USE ONLY 17:39:15 [employer] 9 CPT-63285 HGBA1C - LAB USE ONLY 17:39:15 [employer] CPT-12095 CMP - LAB USE ONLY 17:39:14 [employer] CPT-36082 Venipuncture Draw Fee 17:39:14 [employer] CPT-50486 First Vx - Ix admin via ID I M or jet injects without counseling by physician 16:55:17 [employer] INSPECT[employer] CPT-76947 Fluzone Quadrivalent Intramuscular Suspe nsion 0.5 ML 16:55:17 [employer] CPT-68841 Renal Panel - LAB USE ONLY 17:39:20 CDT 201 10/31/07 CPT-87296 CBC - LAB USE ONLY 17:39:20 CDT CPT-17038 Venipuncture Draw Fee 17:39:20 CDT CPT-57678 Venipuncture Draw Fee 14:33:30 CDT CPT-61064 Renal Panel - LAB USE ONLY 14:33:30 CDT 201 10/31/07 CPT-78580 CBC - LAB USE ONLY 14:33:29 CDT CPT-53685 Venipuncture Draw Fee 14:50:21 [employer] CPT-33045 Immunization Single Admin 17:35:35 CDT 2014 CPT-41497 Fluzone Quadrivalent preservative free ( >=3yrs.) 17:35:35 CDT CPT-13030 Venipuncture Draw Fee 12:10:27 [employer] CPT-56555 Fluzone Quadrivalent Intramuscular Suspe nsion 0.5 ML 10:49:13 CDT CPT-70211 First Vx Component - Ix admi n via ID IM or jet inj without physician counseling 15:17:19 [employer] CPT-08922 Pneumovax 23 15:17:19 [employer] CPT-66431 Pneumovax 14:52:45 [employer] CPT-92268 Venipuncture Draw Fee 14:06:30 [employer] CPT-000 Give Appropriate Flu Vaccine 14:18:34 [employer] INSPECTOR 2 CPT-32151 Administration single or combination vac cine inc oral 14:46:00 [employer] CPT-11373 Influenza split virus > age 3 14:46:00 [employer] CPT-OV Office Visit 19:13:16 CDT CPT-07663 Zostavax 18:41:56 CDT CPT-32617 Administration single or combination vac cine inc oral 12:56:39 CDT CPT-12364 Zoster Vaccine (Zostavax) 12:56:39 CDT 2012 CPT-22183 Venipuncture Draw Fee 10:58:57 CDT CPT-00539 Sono pelvis non OB uterus ovaries cervix 17:45:04 CDT CPT-53668 Sono retroperitoneal complete kidneys an d bladder 17:14:36 CDT CPT-OV Office Visit 14:59:38 [employer] CPT-J1070 Depo Testosterone 100 mg 14:50:13 CDT 03/05 CPT-03026 Abx/Therapy Injection 14:50:13 CDT CPT-63950 Administration single or combination vac cine inc oral 14:34:43 CDT CPT-54324 Influenza split virus > age 3 14:34:43 CDT CPT-J1070 Depo Testosterone 100 mg 17:37:13 CDT 01/11 CPT-20896 Abx/Therapy Injection 17:37:13 CDT CPT-00474 Venipuncture Draw Fee 16:30:13 CDT CPT-47523 Venipuncture Draw Fee 16:29:43 CDT CPT-J1070 Depo Testosterone 100 mg 14:45:38 CDT 01/11
--- OUTSIDE RECORDS SUMMARY | 2019-10-27 13:02 | XMS REPORT | Clinical Summary ---
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 Benign neoplasm of colon PERIPHERAL NEUROPATHY [...] three times a day 201 12/03/26 GABAPENTIN [id number] No Longer Active Baltazar Childers MD Activ e LISINOPRIL 20 MG ORAL TABLET 1 tablet by mouth daily at night 2016 LISINOPRIL 73315068770 Active Baltazar Childers MD Active ZITHROMAX Z-ISAIAS 250 MG ORAL TABLET Take two tablets to day and then 1 tablet daily for 4 days AZITHROMYCIN 06515781896 No Longer A ctive Baltazar Childers MD Active LANTUS SOLOSTAR 100 UNIT/ML SUBCUTANEOUS SOLUTION PEN- INJECTOR 30 units SC daily INSULIN GLARGINE 84179501939 Active Baltazar Childers MD Active AMLODIPINE BESYLATE 5 MG ORAL TABLET 1 tab daily for HTN AMLODIPINE BESYLATE 89512542561 Active Baltazar Childers MD Active SYNTHROID 100 MCG ORAL TABLET 1 tablet by mouth daily LEVOTHYROXINE SODIUM 49897726040 Active Baltazar Childers MD Active GLIPIZIDE 10 MG ORAL TABLET take 2 tablets twice daily GLIPIZIDE 64651132453 Active Baltazar Childers MD Active SUCRALFATE 1 GM ORAL TABLET 1 four times a day to coat the stoma ch SUCRALFATE 51029857000 No Longer Active Baltazar Childers MD Active PEN NEEDLES 31G X 6 MM use 1 daily INSULIN PEN NE EDLE 25866750870 Active KENDALL Juarez Active CELINA POWERSOSTNAKITA 300 UNIT/ML SUBCUTANEOUS SOLUTION PEN- INJECTOR 10 units SC daily INSULIN GLARGINE 84238780832 No Longer Active Rola Godinez RMA Active NAPROXEN SODIUM 220 MG ORAL TABLET 1 three times a day as needed NAPROXEN SODIUM 31616145766 No Longer Active Baltazar Childers MD Active ATORVASTATIN CALCIUM 20 MG ORAL TABLET Take 1 tab daily ATORVASTATIN CALCIUM 35452035246 Active Baltazar Childers MD A ctive FUROSEMIDE 40 MG ORAL TABLET Take one by mouth daily FUROSEMIDE 66234350129 Active Jessy Arellano LPN Active LISINOPRIL 20 MG ORAL TABLET Take one by mouth daily at bedtime LISINOPRIL 00587689644 No Longer Active Baltazar Childers MD Active ONETOUCH ULTRA BLUE IN VITRO STRIP Test twice a day 07/11/11 GLUCOSE BLOOD 36348980158 No Longer Active Baltazar Childers MD Acti ve TRUEPLUS LANCETS 33G Test twice a day LANCETS 1239410 5210 Active KENDALL Juarez Active TRUEDRAW LANCING DEVICE Test twice a day LANCET DEVICES 28837174811 Active Baltazar Childers MD Active TRUETRACK TEST IN VITRO STRIP Test twice a day GLUCOSE BLOOD 72953176933 Active KENDALL Juarez Active TRUETRACK BLOOD GLUCOSE w/Device KIT Test twice a day BLOOD GLUCOSE MONITORING SUPPL 95345611878 Active Baltazar Childers MD Activ e HYDROCODONE-ACETAMINOPHEN 7.5-325 MG ORAL TABLET Take 1 tab every 6-8 hours PRN HYDROCODONE-ACETAMINOPHEN 97852617935 Active Baltazar Nickerson MD Active NORTRIPTYLINE HCL 50 MG ORAL CAPSULE 1 every night for neuropathy 2 NORTRIPTYLINE HCL 88314567025 Active Baltazar Childers MD Acti ve GABAPENTIN 300 MG ORAL CAPSULE 1 po qd x 2 days, then 1 po BID x 2 days, then 1 po TID GABAPENTIN 60236329025 No Longer Active Baltazar Childers MD Active TRAMADOL HCL 50 MG ORAL TABLET 1 twice a day as needed for pain 201 07/27/28 TRAMADOL HCL 09246572520 Active Baltazar Childers MD Active NAPROXEN 500 MG ORAL TABLET 1 tablet by mouth twice daily NAPROXEN 19822833253 No Longer Active Baltazar Childers MD Active PROAIR HFA 108 (90 Base) MCG/ACT INHALATION AEROSOL SO LUTION 2 puffs four times a day as needed ALBUTEROL SULFATE 42232061325 Active KENDALL Bowie Active DEPO-TESTOSTERONE 200 MG/ML INTRAMUSCULAR SOLUTION as directed TESTOSTERONE CYPIONATE 32550439500 No Longer Active Baltazar Childers MD Active LIPITOR 20 MG ORAL TABLET Take one by mouth daily in evening ATORVASTATIN CALCIUM 60090839873 No Longer Active Baltazar Childers MD Active CRESTOR 10 MG ORAL TABLET 1 by mouth every day ROSUVASTATIN CALCIUM 45980192596 No Longer Active Baltazar Childers MD Active PHENTERMINE HCL 37.5 MG ORAL TABLET Take one by mouth daily PHENTERMINE HCL 22533055526 No Longer Active Baltazar Childers MD Ac tive ROBAXIN-750 750 MG ORAL TABLET Take one by mouth daily METHOCARBAMOL 25593549583 Active Baltazar Childers MD Active TIZANIDINE HCL 4 MG ORAL TABLET 1 daily as needed for muscle spa sm TIZANIDINE HCL 93530321453 No Longer Active Dawna Salazar RN Active [id number]-ZEBVNUJA 50-325-40 MG ORAL TABLET 1 fo ur times a day as needed for heacache [id number] 85483981135 Active Baltazar Childers MD Active SUMATRIPTAN SUCCINATE 100 MG ORAL TABLET 1 tablet by m out at onset of migraine as needed SUMATRIPTAN SUCCINATE 73645464390 Active KENDALL Restrepo Active LORATADINE 10 MG ORAL TABLET Take one by mouth daily LORATADINE 14843707800 Active Baltazar Childers MD Active OMEPRAZOLE 20 MG ORAL CAPSULE DELAYED RELEASE Take one by mouth jostin ly OMEPRAZOLE 73316346081 Active Baltazar Childers MD Active HYDROXYZINE HCL 25 MG ORAL TABLET Take one by mouth daily HYDROXYZINE HCL 81348555003 Active KENDALL Juarez Active ALPRAZOLAM 1 MG ORAL TABLET 1 tablet by mouth daily [facility] ALPRAZOLAM 80586414710 Active Baltazar Childers MD Active METFORMIN HCL 1000 MG ORAL TABLET Take one by mouth twice daily METFORMIN HCL 73973368577 Active Baltazar Childers MD Active TIZANIDINE HCL 4 MG ORAL TABLET 1 daily as needed for muscle spa sm TIZANIDINE HCL 4 MG ORAL TABLET 949863 TIZANIDINE HCL Inactive PHENTERMINE HCL 37.5 MG ORAL TABLET Take one by mouth daily PHENTERMINE HCL 37.5 MG ORAL TABLET 412246 PHENTERMINE HCL Inac tive CRESTOR 10 MG ORAL TABLET 1 by mouth every day CRESTOR 10 MG ORAL TABLET 422504 ROSUVASTATIN CALCIUM Inactive LIPITOR 20 MG ORAL TABLET Take one by mouth daily in evening LIPITOR 20 MG ORAL TABLET 708335 ATORVASTATIN CALCIUM Inactive DEPO-TESTOSTERONE 200 MG/ML INTRAMUSCULAR SOLUTION as directed DEPO-TESTOSTERONE 200 MG/ML INTRAMUSCULAR SOLUTION 440412 RUFINO TOSTERONE CYPIONATE Inactive NAPROXEN 500 MG ORAL TABLET 1 tablet by mouth twice daily NAPROXEN 500 MG ORAL TABLET 989485 NAPROXEN Inactive GABAPENTIN 300 MG ORAL CAPSULE 1 po qd x 2 days, then 1 po BID x 2 days, then 1 po TID GABAPENTIN 300 MG ORAL CAPSULE 380923 GABAP ENTIN Inactive ONETOUCH ULTRA BLUE IN VITRO STRIP Test twice a day 07/11/11 ONETOUCH ULTRA BLUE IN VITRO STRIP GLUCOSE BLOOD Inact amie NAPROXEN SODIUM 220 MG ORAL TABLET 1 three times a day as needed NAPROXEN SODIUM 220 MG ORAL TABLET 086203 NAPROXEN SODI UM Inactive TOUJEO SOLOSTAR 300 UNIT/ML SUBCUTANEOUS SOLUTION PEN- INJECTOR 10 units SC daily TOUJEO SOLOSTAR 300 UNIT/ML SUBCUTANEOUS SOLUTION PEN-INJECTOR INSULIN GLARGINE Inactive SUCRALFATE 1 GM ORAL TABLET 1 four times a day to coat the stoma ch SUCRALFATE 1 GM ORAL TABLET 810843 SUCRALFATE Inac tive GABAPENTIN 300 MG ORAL CAPSULE 1 three times a day 201 12/03/26 GABAPENTIN 300 MG ORAL CAPSULE 998725 GABAPENTIN Inactive ZITHROMAX Z-ISAIAS 250 MG ORAL TABLET Take two tablets to day and then 1 tablet daily for 4 days ZITHROMAX Z-ISAIAS 250 MG ORAL TAB LET 101251 AZITHROMYCIN Inactive Immunizations Vaccine Administration Date Value Standard Floyd cription pneumococcal immunization administered Pneumovax 23 [CVX33] pneumococcal polysaccharide vaccine, 23 valent Seasonal influenza vaccine, injectable, containing preservative, for > 3 years old (Afluria, FluLaval, Fluzone, Fluvirin, Fluarix, Agriflu(>= 18 yo)) Fluzone (>3 yrs.) [[id number]] Influenza, seasonal, inject able Seasonal influenza vaccine, injectable, containing preservative, for > 3 years old (Afluria, FluLaval, Fluzone, Fluvirin, Fluarix, Agriflu(>= 18 yo)) Fluzone (>3 yrs.) [[id number]] Influenza, seasonal, inject able Vital Signs Date [...] - Chem istry sodium, serum 139 mmol/L 761-413 5572/10/03 potassium, serum 4.7 mmol/L 3.5-5.2 chloride, serum 98 mmol/L 98-107 carbon dioxide, venous blood 28.7 mmol/L 21.0-32 .0 blood glucose 218 mg/dL 65-110 calcium, serum 9.8 mg/dL 8.5-10.1 urea nitrogen, blood 19 mg/dL 7-18 creatinine, serum 1.68 mg/dL 0.60-1.30 Lab Report: Basic Metabolic Panel, HGBA1 C - Chemistry sodium, serum 143 mmol/L 077-153 3286/06/19 potassium, serum 5.9 mmol/L 3.5-5.2 chloride, serum 105 mmol/L 98-107 carbon dioxide, venous blood 30.2 mmol/L 21.0-32 .0 blood glucose 189 mg/dL 65-110 calcium, serum 9.7 mg/dL 8.5-10.1 urea nitrogen, blood 37 mg/dL 7-18 creatinine, serum 2.11 mg/dL 0.55-1.30 hemoglobin A1C, blood, as % of total hemoglobin 8.2 % 4.3-6.0 Lab Report: CBC, Renal Panel - Chemistry sodium, serum 142 mmol/L 139-269 9036/08/11 potassium, serum 4.8 mmol/L 3.5-5.2 chloride, serum [...] (L) - Chemistry cholesterol, serum 209 mg/dL 784-706 3123/12/27 triglyceride, serum, fasting 329 mg/dL 30-200 HDL cholesterol, serum 56 mg/dL 32-60 LDL cholesterol, serum 87 mg/dL 0-130 TSH 3.60 m[iU]/mL 0.36-3.74 Encounters Code Encounter Date Provider Facility CPT-37904 Level 4 Est. Patient 16:21:19 GEOTHERMAL OPERATIONS MANAGER Baltazar Childers MD [facility] CPT-31565 Level 4 Est. Patient 12:25:11 CDT Baltazar Childers MD [facility]-36005 Level 4 Est. Patient 14:22:31 CDT Baltazar Childers MD [facility]-75466 Level 4 Est. Patient 15:44:38 CDT Shonna Parker APRN [facility]-48453 Level 4 Est. Patient 11:34:17 CDT Baltazar Childers MD [facility]-48680 Level 3 Est. Patient 16:40:40 CDT Baltazar Childers MD [facility]-11283 Level 4 Est. Patient 10:41:24 CDT Baltazar Childers MD [facility]-67669 Level 4 Est. Patient 16:01:48 CDT Baltazar Childers MD [facility]-68611 Level 4 Est. Patient 16:54:07 GEOTHERMAL OPERATIONS MANAGER Baltazar Childers MD [facility]94570 Level 4 Est. Patient 15:42:12 CDT Baltazar Childers MD [facility] CPT-47622 Level 4 Est. Patient 11:29:55 CDT Baltazar Childers MD [facility]-28831 Level 4 Est. Patient 14:15:19 CDT Baltazar Childers MD [facility]-51839 Level 4 Est. Patient 12:20:13 CDT Batlazar Childers MD [facility]-93258 Level 4 Est. Patient 14:52:45 GEOTHERMAL OPERATIONS MANAGER Baltazar Childers MD [facility]-47351 Level 4 Est. Patient 14:18:34 GEOTHERMAL OPERATIONS MANAGER Baltazar Childers MD [facility]-73278 Level 4 Est. Patient 15:18:29 CDT Baltazar Childers MD [facility]-96071 Level 3 Est. Patient 12:45:34 CDT Baltazar Childers MD [facility] CPT-16415 Level 3 Est. Patient 10:10:11 CDT Baltazar Childers MD [facility] CPT-00192 Level 3 Est. Patient 14:07:50 CDT Baltazar Childers MD [facility] CPT-00464 Level 4 Est. Patient 12:26:10 GEOTHERMAL OPERATIONS MANAGER Baltazar Childers MD [facility] CPT-99051 Level 4 Est. Patient 14:45:38 CDT Baltazar Childers MD [facility] CPT-61522 Level 4 New Patient 12:30:48 CDT Baltazar hitnon MD [facility] Procedures Code Procedure Name Date Entry Date Standard Desc ription CPT-65689 First Vx - Ix admin via ID I M or jet injects without counseling by physician 13:08:59 CDT CPT-12910 Fluzone Quadrivalent Intramuscular Suspe nsion 0.5 ML 13:08:59 CDT CPT-45619 Venipuncture Draw Fee 12:04:12 CDT CPT-63050 Lipid - LAB USE ONLY 17:39:15 GEOTHERMAL OPERATIONS MANAGER 9 CPT-83572 HGBA1C - LAB USE ONLY 17:39:15 GEOTHERMAL OPERATIONS MANAGER CPT-25940 CMP - LAB USE ONLY 17:39:14 GEOTHERMAL OPERATIONS MANAGER CPT-73824 Venipuncture Draw Fee 17:39:14 GEOTHERMAL OPERATIONS MANAGER CPT-81343 First Vx - Ix admin via ID I M or jet injects without counseling by physician 16:55:17 GEOTHERMAL OPERATIONS MANAGER CPT-46347 Fluzone Quadrivalent Intramuscular Suspe nsion 0.5 ML 16:55:17 GEOTHERMAL OPERATIONS MANAGER CPT-49648 Renal Panel - LAB USE ONLY 17:39:20 CDT 201 10/31/07 CPT-39678 CBC - LAB USE ONLY 17:39:20 CDT CPT-34710 Venipuncture Draw Fee 17:39:20 CDT CPT-92049 Venipuncture Draw Fee 14:33:30 CDT CPT-17839 Renal Panel - LAB USE ONLY 14:33:30 CDT 201 10/31/07 CPT-95260 CBC - LAB USE ONLY 14:33:29 CDT CPT-56905 Venipuncture Draw Fee 14:50:21 GEOTHERMAL OPERATIONS MANAGER CPT-13256 Immunization Single Admin 17:35:35 CDT 2014 CPT-29406 Fluzone Quadrivalent preservative free ( >=3yrs.) 17:35:35 CDT CPT-29107 Venipuncture Draw Fee 12:10:27 GEOTHERMAL OPERATIONS MANAGER CPT-21911 Fluzone Quadrivalent Intramuscular Suspe nsion 0.5 ML 10:49:13 CDT CPT-96230 First Vx Component - Ix admi n via ID IM or jet inj without physician counseling 15:17:19 GEOTHERMAL OPERATIONS MANAGER CPT-66003 Pneumovax 23 15:17:19 GEOTHERMAL OPERATIONS MANAGER CPT-49210 Pneumovax 14:52:45 GEOTHERMAL OPERATIONS MANAGER CPT-23968 Venipuncture Draw Fee 14:06:30 GEOTHERMAL OPERATIONS MANAGER CPT-000 Give Appropriate Flu Vaccine 14:18:34 GEOTHERMAL OPERATIONS MANAGER 2 CPT-49497 Administration single or combination vac cine inc oral 14:46:00 GEOTHERMAL OPERATIONS MANAGER CPT-83198 Influenza split virus > age 3 14:46:00 GEOTHERMAL OPERATIONS MANAGER CPT-OV Office Visit 19:13:16 CDT CPT-24722 Zostavax 18:41:56 CDT CPT-82563 Administration single or combination vac cine inc oral 12:56:39 CDT CPT-61831 Zoster Vaccine (Zostavax) 12:56:39 CDT 2012 CPT-59243 Venipuncture Draw Fee 10:58:57 CDT CPT-02227 Sono pelvis non OB uterus ovaries cervix 17:45:04 CDT CPT-20323 Sono retroperitoneal complete kidneys an d bladder 17:14:36 CDT CPT-OV Office Visit 14:59:38 GEOTHERMAL OPERATIONS MANAGER CPT-J1070 Depo Testosterone 100 mg 14:50:13 CDT 03/05 CPT-18417 Abx/Therapy Injection 14:50:13 CDT CPT-22959 Administration single or combination vac cine inc oral 14:34:43 CDT CPT-01617 Influenza split virus > age 3 14:34:43 CDT CPT-J1070 Depo Testosterone 100 mg 17:37:13 CDT 01/11 CPT-39022 Abx/Therapy Injection 17:37:13 CDT CPT-18368 Venipuncture Draw Fee 16:30:13 CDT CPT-02767 Venipuncture Draw Fee 16:29:43 CDT CPT-J1070 Depo Testosterone 100 mg 14:45:38 CDT 01/11
--- OUTSIDE RECORDS SUMMARY | 2019-10-27 13:02 | XMS REPORT | Clinical Summary ---
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 Benign neoplasm of colon PERIPHERAL NEUROPATHY [...] ronary atherosclerosis of unspecified type of vessel, paimiut or graft OTH NONSPC ABN FINDNG RAD&OTH [...] three times a day 201 12/03/26 GABAPENTIN 67930876276 No Longer Active Baltazar Childers MD Activ e LISINOPRIL 20 MG ORAL TABLET 1 tablet by mouth daily at night 2016 LISINOPRIL 56231331018 Active Baltazar Childers MD Active ZITHROMAX Z-ISAIAS 250 MG ORAL TABLET Take two tablets to day and then 1 tablet daily for 4 days AZITHROMYCIN 34970724570 No Longer A ctive Baltazar Childers MD Active LANTUS SOLOSTAR 100 UNIT/ML SUBCUTANEOUS SOLUTION PEN- INJECTOR 30 units SC daily INSULIN GLARGINE 50947143687 Active Baltazar Childers MD Active AMLODIPINE BESYLATE 5 MG ORAL TABLET 1 tab daily for HTN AMLODIPINE BESYLATE 50920928084 Active Baltazar Childers MD Active SYNTHROID 100 MCG ORAL TABLET 1 tablet by mouth daily LEVOTHYROXINE SODIUM 01587185805 Active Baltazar Childers MD Active GLIPIZIDE 10 MG ORAL TABLET take 2 tablets twice daily GLIPIZIDE 87468342479 Active Baltazar Childers MD Active SUCRALFATE 1 GM ORAL TABLET 1 four times a day to coat the stoma ch SUCRALFATE 00910386424 No Longer Active Baltazar Childers MD Active PEN NEEDLES 31G X 6 MM use 1 daily INSULIN PEN NE EDLE 24975692123 Active KENDALL Juarez Active CELINA POWERSOSTNAKITA 300 UNIT/ML SUBCUTANEOUS SOLUTION PEN- INJECTOR 10 units SC daily INSULIN GLARGINE 42416107248 No Longer Active Rola Godinez RMA Active NAPROXEN SODIUM 220 MG ORAL TABLET 1 three times a day as needed NAPROXEN SODIUM 85081584617 No Longer Active Baltazar Childers MD Active ATORVASTATIN CALCIUM 20 MG ORAL TABLET Take 1 tab daily ATORVASTATIN CALCIUM 07290726473 Active Baltazar Childers MD A ctive FUROSEMIDE 40 MG ORAL TABLET Take one by mouth daily FUROSEMIDE 86003370818 Active Jessy Arellano LPN Active LISINOPRIL 20 MG ORAL TABLET Take one by mouth daily at bedtime LISINOPRIL 32106179694 No Longer Active Baltazar Childers MD Active ONETOUCH ULTRA BLUE IN VITRO STRIP Test twice a day 07/11/11 GLUCOSE BLOOD 37169714803 No Longer Active Baltazar Childers MD Acti ve TRUEPLUS LANCETS 33G Test twice a day LANCETS 1284233 9889 Active KENDALL Juarez Active TRUEDRAW LANCING DEVICE Test twice a day LANCET DEVICES 12910486834 Active Baltazar Childers MD Active TRUETRACK TEST IN VITRO STRIP Test twice a day GLUCOSE BLOOD 32406121097 Active KENDALL Juarez Active TRUETRACK BLOOD GLUCOSE w/Device KIT Test twice a day BLOOD GLUCOSE MONITORING SUPPL 62966811052 Active Baltazar Childers MD Activ e HYDROCODONE-ACETAMINOPHEN 7.5-325 MG ORAL TABLET Take 1 tab every 6-8 hours PRN HYDROCODONE-ACETAMINOPHEN 97378686397 Active Baltazar Nickerson MD Active NORTRIPTYLINE HCL 50 MG ORAL CAPSULE 1 every night for neuropathy 2 NORTRIPTYLINE HCL 34995313801 Active Baltazar Childers MD Acti ve GABAPENTIN 300 MG ORAL CAPSULE 1 po qd x 2 days, then 1 po BID x 2 days, then 1 po TID GABAPENTIN 91937455685 No Longer Active Blatazar Childers MD Active TRAMADOL HCL 50 MG ORAL TABLET 1 twice a day as needed for pain 201 07/27/28 TRAMADOL HCL 22510768415 Active Baltazar Childers MD Active NAPROXEN 500 MG ORAL TABLET 1 tablet by mouth twice daily NAPROXEN 78860760581 No Longer Active Baltazar Childers MD Active PROAIR HFA 108 (90 Base) MCG/ACT INHALATION AEROSOL SO LUTION 2 puffs four times a day as needed ALBUTEROL SULFATE 80302219390 Active Paul Childers MD Active DEPO-TESTOSTERONE 200 MG/ML INTRAMUSCULAR SOLUTION as directed TESTOSTERONE CYPIONATE 57976620531 No Longer Active Baltazar Childers MD Active LIPITOR 20 MG ORAL TABLET Take one by mouth daily in evening ATORVASTATIN CALCIUM 73205580519 No Longer Active Baltazar Childers MD Active CRESTOR 10 MG ORAL TABLET 1 by mouth every day ROSUVASTATIN CALCIUM 42343589571 No Longer Active Baltazar Childers MD Active PHENTERMINE HCL 37.5 MG ORAL TABLET Take one by mouth daily PHENTERMINE HCL 07153732824 No Longer Active Baltazar Childers MD Ac tive ROBAXIN-750 750 MG ORAL TABLET Take one by mouth daily METHOCARBAMOL 56342777626 Active Baltazar Childers MD Active TIZANIDINE HCL 4 MG ORAL TABLET 1 daily as needed for muscle spa sm TIZANIDINE HCL 88100307599 No Longer Active Dawna Salazar RN Active AKTOWEJMAD-OUDC-KVGOTJEI 50-325-40 MG ORAL TABLET 1 fo ur times a day as needed for heacache [id number] 93112075710 Active Baltazar Childers MD Active SUMATRIPTAN SUCCINATE 100 MG ORAL TABLET 1 tablet by m outh at onset of migraine as needed SUMATRIPTAN SUCCINATE 94388055229 Active Bertha Vazquez LPN Active LORATADINE 10 MG ORAL TABLET Take one by mouth daily LORATADINE 82326678263 Active Baltazar Childers MD Active OMEPRAZOLE 20 MG ORAL CAPSULE DELAYED RELEASE Take one by mouth jostin ly OMEPRAZOLE 41068290602 Active Baltazar Childers MD Active HYDROXYZINE HCL 25 MG ORAL TABLET Take one by mouth daily HYDROXYZINE HCL 08866274489 Active Baltazar Childers MD Active ALPRAZOLAM 1 MG ORAL TABLET 1 tablet by [facility] ALPRAZOLAM 47636468725 Active Baltazar Childers MD Active METFORMIN HCL 1000 MG ORAL TABLET Take one by mouth twice daily METFORMIN HCL 83243420581 Active Baltazar Childers MD Active TIZANIDINE HCL 4 MG ORAL TABLET 1 daily as needed for muscle spa sm TIZANIDINE HCL 4 MG ORAL TABLET 547809 TIZANIDINE HCL Inactive PHENTERMINE HCL 37.5 MG ORAL TABLET Take one by mouth daily PHENTERMINE HCL 37.5 MG ORAL TABLET 638093 PHENTERMINE HCL Inac tive CRESTOR 10 MG ORAL TABLET 1 by mouth every day CRESTOR 10 MG ORAL TABLET 734851 ROSUVASTATIN CALCIUM Inactive LIPITOR 20 MG ORAL TABLET Take one by mouth daily in evening LIPITOR 20 MG ORAL TABLET 789725 ATORVASTATIN CALCIUM Inactive DEPO-TESTOSTERONE 200 MG/ML INTRAMUSCULAR SOLUTION as directed DEPO-TESTOSTERONE 200 MG/ML INTRAMUSCULAR SOLUTION 267762 RUFINO TOSTERONE CYPIONATE Inactive NAPROXEN 500 MG ORAL TABLET 1 tablet by mouth twice daily NAPROXEN 500 MG ORAL TABLET 916571 NAPROXEN Inactive GABAPENTIN 300 MG ORAL CAPSULE 1 po qd x 2 days, then 1 po BID x 2 days, then 1 po TID GABAPENTIN 300 MG ORAL CAPSULE 339852 GABAP ENTIN Inactive ONETOUCH ULTRA BLUE IN VITRO STRIP Test twice a day 07/11/11 ONETOUCH ULTRA BLUE IN VITRO STRIP GLUCOSE BLOOD Inact amie NAPROXEN SODIUM 220 MG ORAL TABLET 1 three times a day as needed NAPROXEN SODIUM 220 MG ORAL TABLET 529644 NAPROXEN SODI UM Inactive TOUJEO SOLOSTAR 300 UNIT/ML SUBCUTANEOUS SOLUTION PEN- INJECTOR 10 units SC daily TOUJEO SOLOSTAR 300 UNIT/ML SUBCUTANEOUS SOLUTION PEN-INJECTOR INSULIN GLARGINE Inactive SUCRALFATE 1 GM ORAL TABLET 1 four times a day to coat the stoma ch SUCRALFATE 1 GM ORAL TABLET 286465 SUCRALFATE Inac tive GABAPENTIN 300 MG ORAL CAPSULE 1 three times a day 201 12/03/26 GABAPENTIN 300 MG ORAL CAPSULE 021241 GABAPENTIN Inactive ZITHROMAX Z-ISAIAS 250 MG ORAL TABLET Take two tablets to day and then 1 tablet daily for 4 days ZITHROMAX Z-ISAIAS 250 MG ORAL TAB LET 586092 AZITHROMYCIN Inactive Immunizations Vaccine Administration Date Value Standard Floyd cription pneumococcal immunization administered Pneumovax 23 [CVX33] pneumococcal polysaccharide vaccine, 23 valent Seasonal influenza vaccine, injectable, containing preservative, for > 3 years old (Afluria, FluLaval, Fluzone, Fluvirin, Fluarix, Agriflu(>= 18 yo)) Fluzone (>3 yrs.) [[id number]] Influenza, seasonal, inject able Seasonal influenza vaccine, injectable, containing preservative, for > 3 years old (Afluria, FluLaval, Fluzone, Fluvirin, Fluarix, Agriflu(>= 18 yo)) Fluzone (>3 yrs.) [[id number]] Influenza, seasonal, inject able Vital Signs Date [...] - Chem istry sodium, serum 139 mmol/L 500-136 5554/10/03 potassium, serum 4.7 mmol/L 3.5-5.2 chloride, serum 98 mmol/L 98-107 carbon dioxide, venous blood 28.7 mmol/L 21.0-32 .0 blood glucose 218 mg/dL 65-110 calcium, serum 9.8 mg/dL 8.5-10.1 urea nitrogen, blood 19 mg/dL 7-18 creatinine, serum 1.68 mg/dL 0.60-1.30 Lab Report: Basic Metabolic Panel, HGBA1 C - Chemistry sodium, serum 143 mmol/L 147-571 7102/06/19 potassium, serum 5.9 mmol/L 3.5-5.2 chloride, serum 105 mmol/L 98-107 carbon dioxide, venous blood 30.2 mmol/L 21.0-32 .0 blood glucose 189 mg/dL 65-110 calcium, serum 9.7 mg/dL 8.5-10.1 urea nitrogen, blood 37 mg/dL 7-18 creatinine, serum 2.11 mg/dL 0.55-1.30 hemoglobin A1C, blood, as % of total hemoglobin 8.2 % 4.3-6.0 Lab Report: CBC, Renal Panel - Chemistry sodium, serum 142 mmol/L 140-129 1031/08/11 potassium, serum 4.8 mmol/L 3.5-5.2 chloride, serum [...] 4.3-6.0 Encounters Code Encounter Date Provider Facility CPT-23318 Level 4 Est. Patient 16:21:19 OXIDE FURNACE TENDER Baltazar Childers MD [facility] CPT-79930 Level 4 Est. Patient 12:25:11 CDT Baltazar Childers MD [facility] CPT-82947 Level 4 Est. Patient 14:22:31 CDT Baltazar Childers MD [facility] CPT-83610 Level 4 Est. Patient 15:44:38 CDT Shonna Parker APRN [facility] CPT-67478 Level 4 Est. Patient 11:34:17 CDT Baltazar Childers MD [facility] CPT-22358 Level 3 Est. Patient 16:40:40 CDT Baltazar Childers MD [facility]-42850 Level 4 Est. Patient 10:41:24 CDT Baltazar Childers MD [facility]-99949 Level 4 Est. Patient 16:01:48 CDT Baltazar Childers MD [facility]-92680 Level 4 Est. Patient 16:54:07 OXIDE FURNACE TENDER Baltazar Childers MD [facility]-44221 Level 4 Est. Patient 15:42:12 CDT Baltazar Childers MD [facility] CPT-25364 Level 4 Est. Patient 11:29:55 CDT Baltazar Childers MD [facility][note 3]-[id number] Level 4 Est. Patient 14:15:19 CDT Baltazar Childers MD [facility] CPT-42245 Level 4 Est. Patient 12:20:13 CDT Baltazar Childers MD [facility] CPT-42880 Level 4 Est. Patient 14:52:45 OXIDE FURNACE TENDER Baltazar Childers MD [facility][note 3]-[id number] Level 4 Est. Patient 14:18:34 OXIDE FURNACE TENDER Baltazar Childers MD [facility] CPT-95893 Level 4 Est. Patient 15:18:29 CDT Baltazar Childers MD [facility] CPT-29679 Level 3 Est. Patient 12:45:34 CDT Baltazar Childers MD [facility][note 3]-[id number] Level 3 Est. Patient 10:10:11 CDT Baltazar Childers MD [facility][note 3]-[id number] Level 3 Est. Patient 14:07:50 CDT Baltazar Childers MD [facility][note 3]-[id number] Level 4 Est. Patient 12:26:10 OXIDE FURNACE TENDER Baltazar Childers MD [facility] CPT-62355 Level 4 Est. Patient 14:45:38 CDT Baltazar Childers MD [facility] CPT-81566 Level 4 New Patient 12:30:48 CDT Baltazar hinton MD [facility] Procedures Code Procedure Name Date Entry Date Standard Desc ription CPT-74500 First Vx - Ix admin via ID I M or jet injects without counseling by physician 13:08:59 CDT CPT-78244 Fluzone Quadrivalent Intramuscular Suspe nsion 0.5 ML 13:08:59 CDT CPT-96819 Venipuncture Draw Fee 12:04:12 CDT CPT-56707 Lipid - LAB USE ONLY 17:39:15 OXIDE FURNACE TENDER 9 CPT-01704 HGBA1C - LAB USE ONLY 17:39:15 OXIDE FURNACE TENDER CPT-47234 CMP - LAB USE ONLY 17:39:14 OXIDE FURNACE TENDER CPT-87377 Venipuncture Draw Fee 17:39:14 OXIDE FURNACE TENDER CPT-60164 First Vx - Ix admin via ID I M or jet injects without counseling by physician 16:55:17 OXIDE FURNACE TENDER CPT-01829 Fluzone Quadrivalent Intramuscular Suspe nsion 0.5 ML 16:55:17 OXIDE FURNACE TENDER CPT-21113 Renal Panel - LAB USE ONLY 17:39:20 CDT 201 10/31/07 CPT-49805 CBC - LAB USE ONLY 17:39:20 CDT CPT-76381 Venipuncture Draw Fee 17:39:20 CDT CPT-64013 Venipuncture Draw Fee 14:33:30 CDT CPT-63262 Renal Panel - LAB USE ONLY 14:33:30 CDT 201 10/31/07 CPT-38543 CBC - LAB USE ONLY 14:33:29 CDT CPT-77563 Venipuncture Draw Fee 14:50:21 OXIDE FURNACE TENDER CPT-85603 Immunization Single Admin 17:35:35 CDT 2014 CPT-35485 Fluzone Quadrivalent preservative free ( >=3yrs.) 17:35:35 CDT CPT-87872 Venipuncture Draw Fee 12:10:27 OXIDE FURNACE TENDER CPT-13588 Fluzone Quadrivalent Intramuscular Suspe nsion 0.5 ML 10:49:13 CDT CPT-55440 First Vx Component - Ix admi n via ID IM or jet inj without physician counseling 15:17:19 OXIDE FURNACE TENDER CPT-18889 Pneumovax 23 15:17:19 OXIDE FURNACE TENDER CPT-83058 Pneumovax 14:52:45 OXIDE FURNACE TENDER CPT-53495 Venipuncture Draw Fee 14:06:30 OXIDE FURNACE TENDER CPT-000 Give Appropriate Flu Vaccine 14:18:34 OXIDE FURNACE TENDER 2 CPT-03044 Administration single or combination vac cine inc oral 14:46:00 OXIDE FURNACE TENDER CPT-85665 Influenza split virus > age 3 14:46:00 OXIDE FURNACE TENDER CPT-OV Office Visit 19:13:16 CDT CPT-40292 Zostavax 18:41:56 CDT CPT-65750 Administration single or combination vac cine inc oral 12:56:39 CDT CPT-01256 Zoster Vaccine (Zostavax) 12:56:39 CDT 2012 CPT-86500 Venipuncture Draw Fee 10:58:57 CDT CPT-62969 Sono pelvis non OB uterus ovaries cervix 17:45:04 CDT CPT-74833 Sono retroperitoneal complete kidneys an d bladder 17:14:36 CDT CPT-OV Office Visit 14:59:38 OXIDE FURNACE TENDER CPT-J1070 Depo Testosterone 100 mg 14:50:13 CDT 03/05 CPT-60783 Abx/Therapy Injection 14:50:13 CDT CPT-18773 Administration single or combination vac cine inc oral 14:34:43 CDT CPT-09389 Influenza split virus > age 3 14:34:43 CDT CPT-J1070 Depo Testosterone 100 mg 17:37:13 CDT 01/11 CPT-09183 Abx/Therapy Injection 17:37:13 CDT CPT-11825 Venipuncture Draw Fee 16:30:13 CDT CPT-43349 Venipuncture Draw Fee 16:29:43 CDT CPT-J1070 Depo Testosterone 100 mg 14:45:38 CDT 01/11
--- OUTSIDE RECORDS SUMMARY | 2019-10-27 13:02 | XMS REPORT | Clinical Summary ---
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 Benign neoplasm of colon PERIPHERAL NEUROPATHY [...] a day to coat the stomach SUCRALFATE 23193610922 Active Baltazar Childers MD Active PEN NEEDLES 31G X 6 MM MISC use 1 daily INSULIN PEN NEEDLE 06084713122 Active Martita Herbert RMA Active TOUJEO SOLOSTAR 300 UNIT/ML SC SOPN 10 units SC daily INSULIN GLARGINE 55223265173 No Longer Active Martita Herbert RMA Active LANTUS SOLOSTAR 100 UNIT/ML SC SOPN 10 units SC daily INSULIN GLARGINE 16158486967 Active KENDALL Juarez Active NAPROXEN SODIUM 220 MG ORAL TABS 1 three times a day as needed 2 NAPROXEN SODIUM 90493579386 No Longer Active Baltazar Childers MD Active ATORVASTATIN CALCIUM 20 MG ORAL TABS Take 1 tab daily ATORVASTATIN CALCIUM 58239540348 Active KENDALL Juarez Active FUROSEMIDE 40 MG TABS Take one by mouth daily FUROSEMIDE 27933358253 Active KENDALL Juarez Active LISINOPRIL 20 MG TABS Take one by mouth daily at bedtime LISINOPRIL 85566409511 Active Baltazar Childers MD Active ONETOUCH ULTRA BLUE STRP Test twice a day GLUCO SE BLOOD 29928110552 No Longer Active Baltazar Childers MD Active TRUEPLUS LANCETS 33G MISC Test twice a day LANCET S 52517657045 Active KENDALL Juarez Active TRUEDRAW LANCING DEVICE MISC Test twice a day L ANCET DEVICES 09187562614 Active Baltazar Childers MD Active TRUETRACK TEST STRP Test twice a day GLUCOSE BLOO D 65879495387 Active KENDALL Juarez Active TRUETRACK BLOOD GLUCOSE W/DEVICE KIT Test twice a day BLOOD GLUCOSE MONITORING SUPPL 45733292606 Active Baltazar Childers MD Activ e HYDROCODONE-ACETAMINOPHEN 7.5-325 MG TABS Take 1 tab every 6-8 hour s PRN HYDROCODONE-ACETAMINOPHEN 81424956242 Active Baltazar Childers MD Active NORTRIPTYLINE HCL 50 MG CAPS 1 every night for neuropathy 4 NORTRIPTYLINE HCL 03131371087 Active KENDALL Juarez Acti ve GABAPENTIN 300 MG CAPS 1 three times a day GABAPE NTIN 21510689695 Active Baltazar Childers MD Active GABAPENTIN 300 MG CAPS 1 po qd x 2 days, then 1 po BID x 2 d ays, then 1 po TID GABAPENTIN 73577327675 No Longer Active Baltazar silverman MD Active TRAMADOL HCL 50 MG TABS 1 twice a day as needed for pain TRAMADOL HCL 98331993775 Active Baltazar Childers MD Active NAPROXEN 500 MG TABS 1 tablet by mouth twice daily NAPROXEN 01258488382 No Longer Active Baltazar Childers MD Active PROAIR HFA 108 (90 BASE) MCG/ACT AERS 2 puffs four times a d ay as needed ALBUTEROL SULFATE 30862041024 Active Baltazar Childers MD Active DEPO-TESTOSTERONE 200 MG/ML OIL as directed RUFINO TOSTERONE CYPIONATE 71012454753 No Longer Active Baltazar Childers MD Active LIPITOR 20 MG TABS Take one by mouth daily in evening ATORVASTATIN CALCIUM 59031262408 No Longer Active Baltazar Childers MD Activ e CRESTOR 10 MG TABS 1 by mouth every day R OSUVASTATIN CALCIUM 52587556738 No Longer Active Baltazar Childers MD Activ e PHENTERMINE HCL 37.5 MG TABS Take one by mouth daily 2 PHENTERMINE HCL 97807129157 No Longer Active Baltazar Childers MD Activ e ROBAXIN-750 750 MG TABS Take one by mouth daily ME THOCARBAMOL 59737462704 Active Baltazar Childers MD Active TIZANIDINE HCL 4 MG TABS 1 daily as needed for muscle spasm 2011 TIZANIDINE HCL 02493747742 No Longer Active Dawna Salazar RN Active [id number] 50-325-40 MG TABS 1 four time s a day as needed for heacache [id number] 66264632352 Active Baltazar Childers MD Active SUMATRIPTAN SUCCINATE 100 MG TABS 1 tablet by mouth at onset of migraine as needed SUMATRIPTAN SUCCINATE 31806585805 Active Bella STEPHEN RN Active LORATADINE 10 MG TABS Take one by mouth daily LORATADINE 76655360303 Active Baltazar Childers MD Active OMEPRAZOLE 20 MG CPDR Take one by mouth daily OMEPRAZOLE 47602871193 Active Argentina Lyons Active HYDROXYZINE HCL 25 MG TABS Take one by mouth daily HYDROXYZINE HCL 14284344893 Active Baltazar Childers MD Active GLIPIZIDE 10 MG TABS 1 tablet by mouth twice daily GLIPIZIDE 07156397007 Active KENDALL Juarez Active ALPRAZOLAM 1 MG TABS 1 tablet by mouth daily at bedtime for restles s leg ALPRAZOLAM 85979027918 Active Baltazar Childers MD Active METFORMIN HCL 1000 MG TABS Take one by mouth twice daily METFORMIN HCL 60116324524 Active Baltazar Childers MD Active TIZANIDINE HCL 4 MG TABS 1 daily as needed for muscle spasm 2011 TIZANIDINE HCL 4 MG TABS 718727 TIZANIDINE HCL Inactiv e PHENTERMINE HCL 37.5 MG TABS Take one by mouth daily 2 PHENTERMINE HCL 37.5 MG TABS 874893 PHENTERMINE HCL Inactive CRESTOR 10 MG TABS 1 by mouth every day C RESTOR 10 MG TABS 868981 ROSUVASTATIN CALCIUM Inactive LIPITOR 20 MG TABS Take one by mouth daily in evening LIPITOR 20 MG TABS 255810 ATORVASTATIN CALCIUM Inactive DEPO-TESTOSTERONE 200 MG/ML OIL as directed 8 DEPO-TESTOSTERONE 200 MG/ML OIL 204526 TESTOSTERONE CYPIONATE Inactive NAPROXEN 500 MG TABS 1 tablet by mouth twice daily 201 07/27/22 NAPROXEN 500 MG TABS 437315 NAPROXEN Inactive GABAPENTIN 300 MG CAPS 1 po qd x 2 days, then 1 po BID x 2 d ays, then 1 po TID GABAPENTIN 300 MG CAPS 152033 GABAPENTIN Inact amie ONETOUCH ULTRA BLUE STRP Test twice a day ONETOUCH ULTRA BLUE STRP GLUCOSE BLOOD Inactive NAPROXEN SODIUM 220 MG ORAL TABS 1 three times a day as needed 2 NAPROXEN SODIUM 220 MG ORAL TABS 669429 NAPROXEN SODIUM Inactive TOUJEO SOLOSTAR 300 UNIT/ML [...] Fluarix, Agriflu(>= 18 yo)) Fluzone (>3 yrs.) [[id number]] Influenza, seasonal, inject able Seasonal influenza vaccine, injectable, containing preservative, for > 3 years old (Afluria, FluLaval, Fluzone, Fluvirin, Fluarix, Agriflu(>= 18 yo)) Fluzone (>3 yrs.) [[id number]] Influenza, seasonal, inject able Vital Signs Date [...] Basic Metabolic Panel, HGBA1 C - Chemistry creatinine, serum 1.89 mg/dL 0.55-1.30 carbon dioxide, venous blood 33.8 mmol/L 21.0-32 .0 blood glucose 209 mg/dL 65-110 calcium, serum 9.8 mg/dL 8.5-10.1 urea nitrogen, blood 14 mg/dL 7-18 sodium, serum 139 mmol/L 638-710 8799/07/07 hemoglobin A1C, blood, as % of total hemoglobin 8.3 % 4.3-6.0 potassium, serum 4.5 mmol/L 3.5-5.2 chloride, serum [...] 7.9 % 4.3-6.0 sodium, serum 139 mmol/L 952-640 5893/02/04 potassium, serum 5.4 mmol/L 3.5-5.2 chloride, serum [...] Comp. Metabolic Panel, Lipid Panel - Chemistry carbon dioxide, venous blood 32.4 mmol/L 21.0-32 .0 sodium, serum 138 mmol/L 468-249 1164/11/23 potassium, serum 5.7 mmol/L 3.5-5.2 chloride, serum 98 mmol/L 98-107 blood glucose 136 mg/dL 65-110 urea nitrogen, blood 18 mg/dL 7-18 creatinine, serum 1.71 mg/dL 0.55-1.30 alanine aminotransferase (SGPT), serum 71 U/L 12-78 aspartate aminotransferase (SGOT), serum 34 U/L 15-37 calcium, serum 9.4 mg/dL 8.5-10.1 bilirubin, serum, total 0.40 mg/dL 0.00-1.00 cholesterol, serum 405 mg/dL 474-520 3138/11/23 triglyceride, serum, fasting 709 mg/dL 30-200 HDL [...] Panel - Chemistry sodium, serum 141 mmol/L 672-594 7252/08/08 creatinine, serum 1.98 mg/dL 0.55-1.30 blood glucose 193 mg/dL 65-110 urea nitrogen, blood 30 mg/dL 7-18 calcium, serum 9.8 mg/dL 8.5-10.1 potassium, serum 4.9 mmol/L 3.5-5.2 chloride, serum 101 mmol/L 98-107 carbon dioxide, venous blood 34.1 mmol/L 21.0-32 .0 Office Visit: Medication refill - Chemis try cholesterol, target level 200 mg/dL LDL target level 70 mg/dL HDL cholesterol, serum, target level 40 mg/dL triglyceride, target level 150 mg/dL Encounters Code Encounter Date Provider Facility CPT-05655 Level 4 Est. Patient 11:34:17 CDT Baltazar Childers MD [facility] CPT-19751 Level 3 Est. Patient 16:40:40 CDT Baltazar Childers MD [facility] CPT-31039 Level 4 Est. Patient 10:41:24 CDT Baltazar Childers MD [facility] CPT-83341 Level 4 Est. Patient 16:01:48 CDT Baltazar Childers MD [facility] CPT-13055 Level 4 Est. Patient 16:54:07 DIRECTOR OF REIMBURSEMENT Baltazar Childers MD [facility] CPT-70438 Level 4 Est. Patient 15:42:12 CDT Baltazar Childers MD [facility] CPT-65311 Level 4 Est. Patient 11:29:55 CDT Baltazar Childers MD [facility] CPT-22215 Level 4 Est. Patient 14:15:19 CDT Baltazar Childers MD [facility] CPT-28373 Level 4 Est. Patient 12:20:13 CDT Baltazar Childers MD [facility] CPT-38648 Level 4 Est. Patient 14:52:45 DIRECTOR OF REIMBURSEMENT Baltazar Childers MD [facility] CPT-28004 Level 4 Est. Patient 14:18:34 DIRECTOR OF REIMBURSEMENT Baltazar Childers MD [facility] CPT-08763 Level 4 Est. Patient 15:18:29 CDT Baltazar Childers MD [facility] CPT-64779 Level 3 Est. Patient 12:45:34 CDT Baltazar Childers MD [facility] CPT-23572 Level 3 Est. Patient 10:10:11 CDT Baltazar Childers MD [facility] CPT-74493 Level 3 Est. Patient 14:07:50 CDT Baltazar Childers MD [facility] CPT-51147 Level 4 Est. Patient 12:26:10 DIRECTOR OF REIMBURSEMENT Baltazar Childers MD [facility] CPT-73092 Level 4 Est. Patient 14:45:38 CDT Baltazar Childers MD [facility] CPT-98574 Level 4 New Patient 12:30:48 CDT Baltazar hinton MD [facility] Procedures Code Procedure Name Date Entry Date Standard Desc ription CPT-80378 Renal Panel - LAB USE ONLY 17:39:20 CDT 201 10/31/07 CPT-48463 CBC - LAB USE ONLY 17:39:20 CDT CPT-40934 Venipuncture Draw Fee 17:39:20 CDT CPT-84164 Venipuncture Draw Fee 14:33:30 CDT CPT-00416 Renal Panel - LAB USE ONLY 14:33:30 CDT 201 10/31/07 CPT-54390 CBC - LAB USE ONLY 14:33:29 CDT CPT-41608 Venipuncture Draw Fee 14:50:21 DIRECTOR OF REIMBURSEMENT CPT-93784 Immunization Single Admin 17:35:35 CDT 2014 CPT-83963 Fluzone Quadrivalent preservative free ( >=3yrs.) 17:35:35 CDT CPT-22625 Venipuncture Draw Fee 12:10:27 DIRECTOR OF REIMBURSEMENT CPT-24697 Fluzone Quadrivalent Intramuscular Suspe nsion 0.5 ML 10:49:13 CDT CPT-53227 First Vx Component - Ix admi n via ID IM or jet inj without physician counseling 15:17:19 DIRECTOR OF REIMBURSEMENT CPT-03092 Pneumovax 15:17:19 DIRECTOR OF REIMBURSEMENT CPT-54533 Pneumovax 14:52:45 DIRECTOR OF REIMBURSEMENT CPT-24345 Venipuncture Draw Fee 14:06:30 DIRECTOR OF REIMBURSEMENT CPT-000 Give Appropriate Flu Vaccine 14:18:34 DIRECTOR OF REIMBURSEMENT 2 CPT-25160 Administration single or combination vac cine inc oral 14:46:00 DIRECTOR OF REIMBURSEMENT CPT-76589 Influenza split virus > age 3 14:46:00 DIRECTOR OF REIMBURSEMENT CPT-OV Office Visit 19:13:16 CDT CPT-73935 Zostavax 18:41:56 CDT CPT-24943 Administration single or combination vac cine inc oral 12:56:39 CDT CPT-62837 Zoster Vaccine (Zostavax) 12:56:39 CDT 2012 CPT-47869 Venipuncture Draw Fee 10:58:57 CDT CPT-00473 Sono pelvis non OB uterus ovaries cervix 17:45:04 CDT CPT-24223 Sono retroperitoneal complete kidneys an d bladder 17:14:36 CDT CPT-OV Office Visit 14:59:38 DIRECTOR OF REIMBURSEMENT CPT-J1070 Depo Testosterone 100 mg 14:50:13 CDT 03/05 CPT-04421 Abx/Therapy Injection 14:50:13 CDT CPT-47415 Administration single or combination vac cine inc oral 14:34:43 CDT CPT-74803 Influenza split virus > age 3 14:34:43 CDT CPT-J1070 Depo Testosterone 100 mg 17:37:13 CDT 01/11 CPT-18460 Abx/Therapy Injection 17:37:13 CDT CPT-86207 Venipuncture Draw Fee 16:30:13 CDT CPT-76897 Venipuncture Draw Fee 16:29:43 CDT CPT-J1070 Depo Testosterone 100 mg 14:45:38 CDT 01/11
--- OUTSIDE RECORDS SUMMARY | 2019-10-27 13:02 | XMS REPORT | Clinical Summary ---
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 Benign neoplasm of colon PERIPHERAL NEUROPATHY [...] ronary atherosclerosis of unspecified type of vessel, [place] or graft OTH NONSPC ABN FINDNG RAD&OTH [...] tablet by mouth daily LE VOTHYROXINE SODIUM 23685888510 Active Carina Tucker LPN Active GLIPIZIDE 10 MG TAB take 2 tablets twice daily GLIPIZIDE 51080314298 Active Carina Tucker LPN Active SUCRALFATE 1 GM TABS 1 four times a day to coat the stomach 2015 SUCRALFATE 41070952396 No Longer Active Baltazar Childers MD Active PEN NEEDLES 31G X 6 MM MISC use 1 daily INSULIN PEN NEEDLE 37541702891 Active Bella Suarez SUPPLY CHAIN DIRECTOR Active TOURINKUO SOLOSTAR 300 UNIT/ML SC SOPN 10 units SC daily INSULIN GLARGINE 36142798546 No Longer Active Martita Godinez KENDALL Active LANTUS SOLOSTAR 100 UNIT/ML SC SOPN 10 units SC daily INSULIN GLARGINE 09171750697 Active Baltazar Childers MD Active NAPROXEN SODIUM 220 MG ORAL TABS 1 three times a day as needed 2 NAPROXEN SODIUM 10029188666 No Longer Active Baltazar Childers MD Active ATORVASTATIN CALCIUM 20 MG ORAL TABS Take 1 tab daily ATORVASTATIN CALCIUM 77332642996 Active Baltazar Childers MD Active FUROSEMIDE 40 MG TABS Take one by mouth daily FUROSEMIDE 70532368222 Active Baltazar Childers MD Active LISINOPRIL 20 MG TABS Take one by mouth daily at bedtime LISINOPRIL 61980096824 Active KENDALL Juarez Active ONETOUCH ULTRA BLUE STRP Test twice a day GLUCO SE BLOOD 26746625985 No Longer Active Baltazar Childers MD Active TRUEPLUS LANCETS 33G MISC Test twice a day LANCET S 94125996723 Active KENDALL Juarez Active TRUEDRAW LANCING DEVICE MISC Test twice a day L ANCET DEVICES 60833136769 Active Baltazar Childers MD Active TRUETRACK TEST STRP Test twice a day GLUCOSE BLOO D 72873522784 Active KENDALL Juarez Active TRUETRACK BLOOD GLUCOSE W/DEVICE KIT Test twice a day BLOOD GLUCOSE MONITORING SUPPL 59041156122 Active Baltazar Childers MD Activ e HYDROCODONE-ACETAMINOPHEN 7.5-325 MG TABS Take 1 tab every 6-8 hour s PRN HYDROCODONE-ACETAMINOPHEN 33111028808 Active Shonna Parker APRN Active NORTRIPTYLINE HCL 50 MG CAPS 1 every night for neuropathy 4 NORTRIPTYLINE HCL 86119256109 Active Baltazar Childers MD Acti ve GABAPENTIN 300 MG CAPS 1 three times a day GABAPE NTIN 76686974732 Active Baltazar Childers MD Active GABAPENTIN 300 MG CAPS 1 po qd x 2 days, then 1 po BID x 2 d ays, then 1 po TID GABAPENTIN 64408993939 No Longer Active Baltazar silverman MD Active TRAMADOL HCL 50 MG TABS 1 twice a day as needed for pain TRAMADOL HCL 35839738064 Active Shonna Parker APRN Active NAPROXEN 500 MG TABS 1 tablet by mouth twice daily NAPROXEN 82973003905 No Longer Active Baltazar Childers MD Active PROAIR HFA 108 (90 BASE) MCG/ACT AERS 2 puffs four times a d ay as needed ALBUTEROL SULFATE 84086094304 Active KENDALL Juarez Active DEPO-TESTOSTERONE 200 MG/ML OIL as directed RUFINO TOSTERONE CYPIONATE 43890481877 No Longer Active Baltazar Childers MD Active LIPITOR 20 MG TABS Take one by mouth daily in evening ATORVASTATIN CALCIUM 63405656297 No Longer Active Baltazar Childers MD Activ e CRESTOR 10 MG TABS 1 by mouth every day R OSUVASTATIN CALCIUM 33698675667 No Longer Active Baltazar Childers MD Activ e PHENTERMINE HCL 37.5 MG TABS Take one by mouth daily 2 PHENTERMINE HCL 15631651421 No Longer Active Baltazar Childers MD Activ e ROBAXIN-750 750 MG TABS Take one by mouth daily ME THOCARBAMOL 24421514892 Active Baltazar Childers MD Active TIZANIDINE HCL 4 MG TABS 1 daily as needed for muscle spasm 2011 TIZANIDINE HCL 44936561435 No Longer Active Dawna Salazar RN Active [id number] 50-325-40 MG TABS 1 four time s a day as needed for heacache [id number] 24991761669 Active Shonna Parker APRN Active SUMATRIPTAN SUCCINATE 100 MG TABS 1 tablet by mouth at onset of migraine as needed SUMATRIPTAN SUCCINATE 04702616980 Active Shonna Villaseñor er SUPPLY CHAIN DIRECTOR Active LORATADINE 10 MG TABS Take one by mouth daily LORATADINE 87166076246 Active Baltazar Childers MD Active OMEPRAZOLE 20 MG CPDR Take one by mouth daily OMEPRAZOLE 73623182500 Active KENDALL Juarez Active HYDROXYZINE HCL 25 MG TABS Take one by mouth daily HYDROXYZINE HCL 54065474161 Active Baltazar Childers MD Active ALPRAZOLAM 1 MG TABS 1 tablet by mouth daily at bedtime for restles s leg ALPRAZOLAM 82893415042 Active Baltazar Childers MD Active METFORMIN HCL 1000 MG TABS Take one by mouth twice daily METFORMIN HCL 97727314338 Active Baltazar Childers MD Active TIZANIDINE HCL 4 MG TABS 1 daily as needed for muscle spasm 2011 TIZANIDINE HCL 4 MG TABS 075057 TIZANIDINE HCL Inactiv e PHENTERMINE HCL 37.5 MG TABS Take one by mouth daily 2 PHENTERMINE HCL 37.5 MG TABS 447876 PHENTERMINE HCL Inactive CRESTOR 10 MG TABS 1 by mouth every day C RESTOR 10 MG TABS 268358 ROSUVASTATIN CALCIUM Inactive LIPITOR 20 MG TABS Take one by mouth daily in evening LIPITOR 20 MG TABS 613131 ATORVASTATIN CALCIUM Inactive DEPO-TESTOSTERONE 200 MG/ML OIL as directed 8 DEPO-TESTOSTERONE 200 MG/ML OIL 710304 TESTOSTERONE CYPIONATE Inactive NAPROXEN 500 MG TABS 1 tablet by mouth twice daily 201 07/27/22 NAPROXEN 500 MG TABS 433193 NAPROXEN Inactive GABAPENTIN 300 MG CAPS 1 po qd x 2 days, then 1 po BID x 2 d ays, then 1 po TID GABAPENTIN 300 MG CAPS 534294 GABAPENTIN Inact amie ONETOUCH ULTRA BLUE STRP Test twice a day ONETOUCH ULTRA BLUE STRP GLUCOSE BLOOD Inactive NAPROXEN SODIUM 220 MG ORAL TABS 1 three times a day as needed 2 NAPROXEN SODIUM 220 MG ORAL TABS 945803 NAPROXEN SODIUM Inactive TOUJEO SOLOSTAR 300 UNIT/ML SC SOPN 10 units SC daily TOUJEO SOLOSTAR 300 UNIT/ML SC SOPN INSULIN GLARGINE Inac tive SUCRALFATE 1 GM TABS 1 four times a day to coat the stomach 2015 SUCRALFATE 1 GM TABS 463370 SUCRALFATE Inactive Immunizations Vaccine Administration Date Value Standard Floyd cription pneumococcal immunization administered Pneumovax 23 [CVX33] pneumococcal polysaccharide vaccine, 23 valent Seasonal influenza vaccine, injectable, containing preservative, for > 3 years old (Afluria, FluLaval, Fluzone, Fluvirin, Fluarix, Agriflu(>= 18 yo)) Fluzone (>3 yrs.) [[id number]] Influenza, seasonal, inject able Seasonal influenza vaccine, injectable, containing preservative, for > 3 years old (Afluria, FluLaval, Fluzone, Fluvirin, Fluarix, Agriflu(>= 18 yo)) Fluzone (>3 yrs.) [[id number]] Influenza, seasonal, inject able Vital Signs Date [...] C - Chemistry sodium, serum 139 mmol/L 531-263 2178/07/07 potassium, serum 4.5 mmol/L 3.5-5.2 chloride, serum [...] Panel - Chemistry sodium, serum 143 mmol/L 444-526 0234/12/19 carbon dioxide, venous blood 32.5 mmol/L 21.0-32 .0 potassium, serum 4.9 mmol/L 3.5-5.2 chloride, serum 101 mmol/L 98-107 blood glucose 129 mg/dL 65-110 urea nitrogen, blood 18 mg/dL 7-18 creatinine, serum 1.79 mg/dL 0.55-1.30 alanine aminotransferase (SGPT), serum 34 U/L 12-78 aspartate aminotransferase (SGOT), serum 26 U/L 15-37 calcium, serum 8.9 mg/dL 8.5-10.1 bilirubin, serum, total 0.30 mg/dL 0.00-1.00 cholesterol, serum 214 mg/dL 722-278 1733/12/19 triglyceride, serum, fasting 351 mg/dL 30-200 HDL [...] Panel - Chemistry sodium, serum 141 mmol/L 635-117 4580/08/08 potassium, serum 4.9 mmol/L 3.5-5.2 chloride, serum 101 mmol/L 98-107 carbon dioxide, venous blood 34.1 mmol/L 21.0-32 .0 creatinine, serum 1.98 mg/dL 0.55-1.30 blood glucose 193 mg/dL 65-110 urea nitrogen, blood 30 mg/dL 7-18 calcium, serum 9.8 mg/dL 8.5-10.1 Encounters Code Encounter Date Provider Facility CPT-65404 Level 4 Est. Patient 15:44:38 CDT Shonna Parker APRN [facility] CPT-61536 Level 4 Est. Patient 11:34:17 CDT Baltazar Childers MD [facility] CPT-55168 Level 3 Est. Patient 16:40:40 CDT Baltazar Childers MD [facility] CPT-77334 Level 4 Est. Patient 10:41:24 CDT Baltazar Childers MD [facility]-86097 Level 4 Est. Patient 16:01:48 CDT Baltazar Childers MD [facility]-83824 Level 4 Est. Patient 16:54:07 COMPONENT OVERHAUL OPERATOR Baltazar Childers MD [facility]-08851 Level 4 Est. Patient 15:42:12 CDT Baltazar Childers MD [facility] CPT-13491 Level 4 Est. Patient 11:29:55 CDT Baltazar Childers MD [facility]-64053 Level 4 Est. Patient 14:15:19 CDT Baltazar Childers MD [facility]-09517 Level 4 Est. Patient 12:20:13 CDT Baltazar Childers MD [facility]-36100 Level 4 Est. Patient 14:52:45 COMPONENT OVERHAUL OPERATOR Baltazar Childers MD [facility]-98471 Level 4 Est. Patient 14:18:34 COMPONENT OVERHAUL OPERATOR Baltazar Childers MD [facility]-63356 Level 4 Est. Patient 15:18:29 CDT Baltazar Childers MD [facility]-91781 Level 3 Est. Patient 12:45:34 CDT Baltazar Childers MD [facility]-89274 Level 3 Est. Patient 10:10:11 CDT Baltazar Childers MD [facility]-85408 Level 3 Est. Patient 14:07:50 CDT Baltazar Childers MD [facility]-49125 Level 4 Est. Patient 12:26:10 COMPONENT OVERHAUL OPERATOR Baltazar Childers MD [facility]-28839 Level 4 Est. Patient 14:45:38 CDT Baltazar Childers MD [facility] CPT-21067 Level 4 New Patient 12:30:48 CDT Baltazar hinton MD [facility] Procedures Code Procedure Name Date Entry Date Standard Desc ription CPT-69513 Lipid - LAB USE ONLY 17:39:15 COMPONENT OVERHAUL OPERATOR 9 CPT-21680 HGBA1C - LAB USE ONLY 17:39:15 COMPONENT OVERHAUL OPERATOR CPT-75145 CMP - LAB USE ONLY 17:39:14 COMPONENT OVERHAUL OPERATOR CPT-35799 Venipuncture Draw Fee 17:39:14 COMPONENT OVERHAUL OPERATOR CPT-70574 First Vx - Ix admin via ID I M or jet injects without counseling by physician 16:55:17 COMPONENT OVERHAUL OPERATOR CPT-62501 Fluzone Quadrivalent Intramuscular Suspe nsion 0.5 ML 16:55:17 COMPONENT OVERHAUL OPERATOR CPT-04358 Renal Panel - LAB USE ONLY 17:39:20 CDT 201 10/31/07 CPT-39548 CBC - LAB USE ONLY 17:39:20 CDT CPT-09029 Venipuncture Draw Fee 17:39:20 CDT CPT-49475 Venipuncture Draw Fee 14:33:30 CDT CPT-89591 Renal Panel - LAB USE ONLY 14:33:30 CDT 201 10/31/07 CPT-97937 CBC - LAB USE ONLY 14:33:29 CDT CPT-60391 Venipuncture Draw Fee 14:50:21 COMPONENT OVERHAUL OPERATOR CPT-98198 Immunization Single Admin 17:35:35 CDT 2014 CPT-73817 Fluzone Quadrivalent preservative free ( >=3yrs.) 17:35:35 CDT CPT-62950 Venipuncture Draw Fee 12:10:27 COMPONENT OVERHAUL OPERATOR CPT-26328 Fluzone Quadrivalent Intramuscular Suspe nsion 0.5 ML 10:49:13 CDT CPT-69478 First Vx Component - Ix admi n via ID IM or jet inj without physician counseling 15:17:19 COMPONENT OVERHAUL OPERATOR CPT-83318 Pneumovax 23 15:17:19 COMPONENT OVERHAUL OPERATOR CPT-33174 Pneumovax 14:52:45 COMPONENT OVERHAUL OPERATOR CPT-20795 Venipuncture Draw Fee 14:06:30 COMPONENT OVERHAUL OPERATOR CPT-000 Give Appropriate Flu Vaccine 14:18:34 COMPONENT OVERHAUL OPERATOR 2 CPT-82598 Administration single or combination vac cine inc oral 14:46:00 COMPONENT OVERHAUL OPERATOR CPT-87838 Influenza split virus > age 3 14:46:00 COMPONENT OVERHAUL OPERATOR CPT-OV Office Visit 19:13:16 CDT CPT-54770 Zostavax 18:41:56 CDT CPT-17676 Administration single or combination vac cine inc oral 12:56:39 CDT CPT-69251 Zoster Vaccine (Zostavax) 12:56:39 CDT 2012 CPT-83987 Venipuncture Draw Fee 10:58:57 CDT CPT-25695 Sono pelvis non OB uterus ovaries cervix 17:45:04 CDT CPT-24592 Sono retroperitoneal complete kidneys an d bladder 17:14:36 CDT CPT-OV Office Visit 14:59:38 COMPONENT OVERHAUL OPERATOR CPT-J1070 Depo Testosterone 100 mg 14:50:13 CDT 03/05 CPT-13989 Abx/Therapy Injection 14:50:13 CDT CPT-16612 Administration single or combination vac cine inc oral 14:34:43 CDT CPT-52749 Influenza split virus > age 3 14:34:43 CDT CPT-J1070 Depo Testosterone 100 mg 17:37:13 CDT 01/11 CPT-50491 Abx/Therapy Injection 17:37:13 CDT CPT-07253 Venipuncture Draw Fee 16:30:13 CDT CPT-79727 Venipuncture Draw Fee 16:29:43 CDT CPT-J1070 Depo Testosterone 100 mg 14:45:38 CDT 01/11
--- OUTSIDE RECORDS SUMMARY | 2019-10-27 13:03 | XMS REPORT | Clinical Summary ---
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 Benign neoplasm of colon PERIPHERAL NEUROPATHY [...] tablet by mouth daily LE VOTHYROXINE SODIUM 27444635227 Active Carina Tucker LPN Active GLIPIZIDE 10 MG TAB take 2 tablets twice daily GLIPIZIDE 78549402335 Active Carina Tucker LPN Active SUCRALFATE 1 GM TABS 1 four times a day to coat the stomach 2015 SUCRALFATE 15092281780 No Longer Active Baltazar Childers MD Active PEN NEEDLES 31G X 6 MM MISC use 1 daily INSULIN PEN NEEDLE 58092348277 Active Bella Suarez RADIOISOTOPE TECHNOLOGIST Active TOURINKUO SOLOSTAR 300 UNIT/ML SC SOPN 10 units SC daily INSULIN GLARGINE 37672760693 No Longer Active Martita Godinez KENDALL Active LANTUS SOLOSTAR 100 UNIT/ML SC SOPN 10 units SC daily INSULIN GLARGINE 31454218396 Active Baltazar Childers MD Active NAPROXEN SODIUM 220 MG ORAL TABS 1 three times a day as needed 2 NAPROXEN SODIUM 56008919764 No Longer Active Baltazar Childers MD Active ATORVASTATIN CALCIUM 20 MG ORAL TABS Take 1 tab daily ATORVASTATIN CALCIUM 61737559770 Active Baltazar Childers MD Active FUROSEMIDE 40 MG TABS Take one by mouth daily FUROSEMIDE 56159049315 Active Baltazar Childers MD Active LISINOPRIL 20 MG TABS Take one by mouth daily at bedtime LISINOPRIL 57196932230 Active KENDALL Juarez Active ONETOUCH ULTRA BLUE STRP Test twice a day GLUCO SE BLOOD 79764252676 No Longer Active Baltazar Childers MD Active TRUEPLUS LANCETS 33G MISC Test twice a day LANCET S 21052262805 Active KENDALL Juarez Active TRUEDRAW LANCING DEVICE MISC Test twice a day L ANCET DEVICES 36114490525 Active Baltazar Childers MD Active TRUETRACK TEST STRP Test twice a day GLUCOSE BLOO D 16925588493 Active KENDALL Juarez Active TRUETRACK BLOOD GLUCOSE W/DEVICE KIT Test twice a day BLOOD GLUCOSE MONITORING SUPPL 41092154297 Active Baltazar Childers MD Activ e HYDROCODONE-ACETAMINOPHEN 7.5-325 MG TABS Take 1 tab every 6-8 hour s PRN HYDROCODONE-ACETAMINOPHEN 14601307361 Active Shonna Parker APRN Active NORTRIPTYLINE HCL 50 MG CAPS 1 every night for neuropathy 4 NORTRIPTYLINE HCL 93098092232 Active Baltazar Childers MD Acti ve GABAPENTIN 300 MG CAPS 1 three times a day GABAPE NTIN 96528645285 Active KENDALL Juarez Active GABAPENTIN 300 MG CAPS 1 po qd x 2 days, then 1 po BID x 2 d ays, then 1 po TID GABAPENTIN 99950715023 No Longer Active Baltazar silverman MD Active TRAMADOL HCL 50 MG TABS 1 twice a day as needed for pain TRAMADOL HCL 02539023699 Active Shonna Parker APRN Active NAPROXEN 500 MG TABS 1 tablet by mouth twice daily NAPROXEN 32238629321 No Longer Active Baltazar Childers MD Active PROAIR HFA 108 (90 BASE) MCG/ACT AERS 2 puffs four times a d ay as needed ALBUTEROL SULFATE 79412571021 Active KENDALL Juarez Active DEPO-TESTOSTERONE 200 MG/ML OIL as directed RUFINO TOSTERONE CYPIONATE 71813370927 No Longer Active Baltazar Childers MD Active LIPITOR 20 MG TABS Take one by mouth daily in evening ATORVASTATIN CALCIUM 12632026350 No Longer Active Baltazar Childers MD Activ e CRESTOR 10 MG TABS 1 by mouth every day R OSUVASTATIN CALCIUM 11366804074 No Longer Active Baltazar Childers MD Activ e PHENTERMINE HCL 37.5 MG TABS Take one by mouth daily 2 PHENTERMINE HCL 49839697797 No Longer Active Baltazar Childers MD Activ e ROBAXIN-750 750 MG TABS Take one by mouth daily ME THOCARBAMOL 56968071688 Active Baltazar Childers MD Active TIZANIDINE HCL 4 MG TABS 1 daily as needed for muscle spasm 2011 TIZANIDINE HCL 66493690075 No Longer Active Dawna Salazar RN Active NUOBTFIEUV-WPSZ-YOUFWARE 50-325-40 MG TABS 1 four time s a day as needed for heacache YFLKIEVDVE-URKE-QUGSEVFT 62193494268 Active Shonna Parker APRN Active SUMATRIPTAN SUCCINATE 100 MG TABS 1 tablet by mouth at onset of migraine as needed SUMATRIPTAN SUCCINATE 50807742718 Active Shonna Lucianodian er RADIOISOTOPE TECHNOLOGIST Active LORATADINE 10 MG TABS Take one by mouth daily LORATADINE 39015217634 Active Baltazar Childers MD Active OMEPRAZOLE 20 MG CPDR Take one by mouth daily OMEPRAZOLE 71214418902 Active KENDALL Juarez Active HYDROXYZINE HCL 25 MG TABS Take one by mouth daily HYDROXYZINE HCL 44673994121 Active Baltazar Childers MD Active ALPRAZOLAM 1 MG TABS 1 tablet by mouth daily at bedtime for restles s leg ALPRAZOLAM 74954232943 Active Baltazar Childers MD Active METFORMIN HCL 1000 MG TABS Take one by mouth twice daily METFORMIN HCL 87689542695 Active Baltazar Childers MD Active TIZANIDINE HCL 4 MG TABS 1 daily as needed for muscle spasm 2011 TIZANIDINE HCL 4 MG TABS 001408 TIZANIDINE HCL Inactiv e PHENTERMINE HCL 37.5 MG TABS Take one by mouth daily 2 PHENTERMINE HCL 37.5 MG TABS 688287 PHENTERMINE HCL Inactive CRESTOR 10 MG TABS 1 by mouth every day C RESTOR 10 MG TABS 543709 ROSUVASTATIN CALCIUM Inactive LIPITOR 20 MG TABS Take one by mouth daily in evening LIPITOR 20 MG TABS 621793 ATORVASTATIN CALCIUM Inactive DEPO-TESTOSTERONE 200 MG/ML OIL as directed 8 DEPO-TESTOSTERONE 200 MG/ML OIL 152837 TESTOSTERONE CYPIONATE Inactive NAPROXEN 500 MG TABS 1 tablet by mouth twice daily 201 07/27/22 NAPROXEN 500 MG TABS 066196 NAPROXEN Inactive GABAPENTIN 300 MG CAPS 1 po qd x 2 days, then 1 po BID x 2 d ays, then 1 po TID GABAPENTIN 300 MG CAPS 506004 GABAPENTIN Inact amie ONETOUCH ULTRA BLUE STRP Test twice a day ONETOUCH ULTRA BLUE STRP GLUCOSE BLOOD Inactive NAPROXEN SODIUM 220 MG ORAL TABS 1 three times a day as needed 2 NAPROXEN SODIUM 220 MG ORAL TABS 675482 NAPROXEN SODIUM Inactive TOUJEO SOLOSTAR 300 UNIT/ML SC SOPN 10 units SC daily TOUJEO SOLOSTAR 300 UNIT/ML SC SOPN INSULIN GLARGINE Inac tive SUCRALFATE 1 GM TABS 1 four times a day to coat the stomach 2015 SUCRALFATE 1 GM TABS 777949 SUCRALFATE Inactive Immunizations Vaccine Administration Date Value Standard Floyd cription pneumococcal immunization administered Pneumovax 23 [CVX33] pneumococcal polysaccharide vaccine, 23 valent Seasonal influenza vaccine, injectable, containing preservative, for > 3 years old (Afluria, FluLaval, Fluzone, Fluvirin, Fluarix, Agriflu(>= 18 yo)) Fluzone (>3 yrs.) [[id number]] Influenza, seasonal, inject able Seasonal influenza vaccine, injectable, containing preservative, for > 3 years old (Afluria, FluLaval, Fluzone, Fluvirin, Fluarix, Agriflu(>= 18 yo)) Fluzone (>3 yrs.) [[id number]] Influenza, seasonal, inject able Vital Signs Date [...] C - Chemistry sodium, serum 139 mmol/L 375-863 8878/07/07 potassium, serum 4.5 mmol/L 3.5-5.2 chloride, serum [...] Panel - Chemistry sodium, serum 143 mmol/L 350-034 9884/12/19 carbon dioxide, venous blood 32.5 mmol/L 21.0-32 .0 potassium, serum 4.9 mmol/L 3.5-5.2 chloride, serum 101 mmol/L 98-107 blood glucose 129 mg/dL 65-110 urea nitrogen, blood 18 mg/dL 7-18 creatinine, serum 1.79 mg/dL 0.55-1.30 alanine aminotransferase (SGPT), serum 34 U/L 12-78 aspartate aminotransferase (SGOT), serum 26 U/L 15-37 calcium, serum 8.9 mg/dL 8.5-10.1 bilirubin, serum, total 0.30 mg/dL 0.00-1.00 cholesterol, serum 214 mg/dL 385-931 4363/12/19 triglyceride, serum, fasting 351 mg/dL 30-200 HDL [...] Panel - Chemistry sodium, serum 141 mmol/L 446-217 5345/08/08 potassium, serum 4.9 mmol/L 3.5-5.2 chloride, serum 101 mmol/L 98-107 carbon dioxide, venous blood 34.1 mmol/L 21.0-32 .0 creatinine, serum 1.98 mg/dL 0.55-1.30 blood glucose 193 mg/dL 65-110 urea nitrogen, blood 30 mg/dL 7-18 calcium, serum 9.8 mg/dL 8.5-10.1 Encounters Code Encounter Date Provider Facility CPT-58038 Level 4 Est. Patient 15:44:38 CDT Shonna Parker APRN [facility] CPT-06140 Level 4 Est. Patient 11:34:17 CDT Baltazar Childers MD [facility] CPT-91781 Level 3 Est. Patient 16:40:40 CDT Baltazar Childers MD [facility] CPT-18461 Level 4 Est. Patient 10:41:24 CDT Baltazar Childers MD [facility]-59450 Level 4 Est. Patient 16:01:48 CDT Baltazar Childers MD [facility]-59645 Level 4 Est. Patient 16:54:07 INSPECTOR OPTICAL INSTRUMENT Baltazar Childers MD [facility]-92850 Level 4 Est. Patient 15:42:12 CDT Baltazar Childers MD [facility] CPT-41452 Level 4 Est. Patient 11:29:55 CDT Baltazar Childers MD [facility]-00404 Level 4 Est. Patient 14:15:19 CDT Baltazar Childers MD [facility]-41680 Level 4 Est. Patient 12:20:13 CDT Baltazar Childers MD [facility]-82463 Level 4 Est. Patient 14:52:45 INSPECTOR OPTICAL INSTRUMENT Baltazar Childers MD [facility] CPT-57569 Level 4 Est. Patient 14:18:34 INSPECTOR OPTICAL INSTRUMENT Baltazar Childers MD [facility]-62687 Level 4 Est. Patient 15:18:29 CDT Baltazar Childers MD [facility] CPT-29068 Level 3 Est. Patient 12:45:34 CDT Baltazar Childers MD [facility] CPT-86690 Level 3 Est. Patient 10:10:11 CDT Baltazar Childers MD [facility] CPT-52024 Level 3 Est. Patient 14:07:50 CDT Baltazar Childers MD [facility]-98600 Level 4 Est. Patient 12:26:10 INSPECTOR OPTICAL INSTRUMENT Baltazar Childers MD [facility]-35945 Level 4 Est. Patient 14:45:38 CDT Baltazar Childers MD [facility] CPT-27272 Level 4 New Patient 12:30:48 CDT Baltazar hinton MD [facility] Procedures Code Procedure Name Date Entry Date Standard Desc ription CPT-77949 Lipid - LAB USE ONLY 17:39:15 INSPECTOR OPTICAL INSTRUMENT 9 CPT-01183 HGBA1C - LAB USE ONLY 17:39:15 INSPECTOR OPTICAL INSTRUMENT CPT-42198 CMP - LAB USE ONLY 17:39:14 INSPECTOR OPTICAL INSTRUMENT CPT-88519 Venipuncture Draw Fee 17:39:14 INSPECTOR OPTICAL INSTRUMENT CPT-02834 First Vx - Ix admin via ID I M or jet injects without counseling by physician 16:55:17 INSPECTOR OPTICAL INSTRUMENT CPT-48416 Fluzone Quadrivalent Intramuscular Suspe nsion 0.5 ML 16:55:17 INSPECTOR OPTICAL INSTRUMENT CPT-61963 Renal Panel - LAB USE ONLY 17:39:20 CDT 201 10/31/07 CPT-21970 CBC - LAB USE ONLY 17:39:20 CDT CPT-07887 Venipuncture Draw Fee 17:39:20 CDT CPT-32021 Venipuncture Draw Fee 14:33:30 CDT CPT-96331 Renal Panel - LAB USE ONLY 14:33:30 CDT 201 10/31/07 CPT-84524 CBC - LAB USE ONLY 14:33:29 CDT CPT-84948 Venipuncture Draw Fee 14:50:21 INSPECTOR OPTICAL INSTRUMENT CPT-46629 Immunization Single Admin 17:35:35 CDT 2014 CPT-15685 Fluzone Quadrivalent preservative free ( >=3yrs.) 17:35:35 CDT CPT-38008 Venipuncture Draw Fee 12:10:27 INSPECTOR OPTICAL INSTRUMENT CPT-02909 Fluzone Quadrivalent Intramuscular Suspe nsion 0.5 ML 10:49:13 CDT CPT-76454 First Vx Component - Ix admi n via ID IM or jet inj without physician counseling 15:17:19 INSPECTOR OPTICAL INSTRUMENT CPT-27757 Pneumovax 23 15:17:19 INSPECTOR OPTICAL INSTRUMENT CPT-60325 Pneumovax 14:52:45 INSPECTOR OPTICAL INSTRUMENT CPT-47571 Venipuncture Draw Fee 14:06:30 INSPECTOR OPTICAL INSTRUMENT CPT-000 Give Appropriate Flu Vaccine 14:18:34 INSPECTOR OPTICAL INSTRUMENT 2 CPT-64350 Administration single or combination vac cine inc oral 14:46:00 INSPECTOR OPTICAL INSTRUMENT CPT-21851 Influenza split virus > age 3 14:46:00 INSPECTOR OPTICAL INSTRUMENT CPT-OV Office Visit 19:13:16 CDT CPT-03412 Zostavax 18:41:56 CDT CPT-23405 Administration single or combination vac cine inc oral 12:56:39 CDT CPT-86983 Zoster Vaccine (Zostavax) 12:56:39 CDT 2012 CPT-45404 Venipuncture Draw Fee 10:58:57 CDT CPT-60832 Sono pelvis non OB uterus ovaries cervix 17:45:04 CDT CPT-51763 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
--- OUTSIDE RECORDS SUMMARY | 2019-10-27 13:03 | XMS REPORT | Clinical Summary ---
Author Author Abhishek, [facility] Address Unknown Phone Unavailable Allergies, Adverse 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 BLADE GROOVER Benign neoplasm of colon PERIPHERAL NEUROPATHY 356.9 [...] ronary atherosclerosis of unspecified type of vessel, ewiiaapaayp or graft OTH NONSPC ABN FINDNG RAD&OTH [...] MISC Test twice a day LANCET S 19517870341 Active Baltazar Childers MD Active TRUEDRAW LANCING DEVICE MISC Test twice a day L ANCET DEVICES 86024627908 Active Baltazar Childers MD Active TRUETRACK TEST STRP Test twice a day GLUCOSE BLOO D 11119286568 Active Baltazar Childers MD Active TRUETRACK BLOOD GLUCOSE W/DEVICE KIT Test twice a day BLOOD GLUCOSE MONITORING SUPPL 43481160647 Active Baltazar Childers MD Activ e HYDROCODONE-ACETAMINOPHEN 7.5-325 MG TABS Take 1 tab every 6-8 hour s PRN HYDROCODONE-ACETAMINOPHEN 30523902221 Active Baltazar Childers MD Active NORTRIPTYLINE HCL 50 MG CAPS 1 every night for neuropathy 4 NORTRIPTYLINE HCL 17404912329 Active Baltazar Childers MD Acti ve GABAPENTIN 300 MG CAPS 1 three times a day GABAPE NTIN 02610157224 Active Baltazar Childers MD Active GABAPENTIN 300 MG CAPS 1 po qd x 2 days, then 1 po BID x 2 d ays, then 1 po TID GABAPENTIN 31651066786 No Longer Active Baltazar silverman MD Active TRAMADOL HCL 50 MG TABS 1 twice a day as needed for pain TRAMADOL HCL 60381041604 Active Baltazar Childers MD Active NAPROXEN 500 MG TABS 1 tablet by mouth twice daily NAPROXEN 38916157574 No Longer Active Baltazar Childers MD Active PROAIR HFA 108 (90 BASE) MCG/ACT AERS 2 puffs four times a d ay as needed ALBUTEROL SULFATE 45018983577 Active Baltazar Childers MD Active DEPO-TESTOSTERONE 200 MG/ML OIL as directed RUFINO TOSTERONE CYPIONATE 76920078574 No Longer Active Baltazar Childers MD Active LIPITOR 20 MG TABS Take one by mouth daily in evening ATORVASTATIN CALCIUM 77122850587 No Longer Active Baltazar Childers MD Activ e CRESTOR 10 MG TABS 1 by mouth every day R OSUVASTATIN CALCIUM 42602327234 No Longer Active Baltazar Childers MD Activ e PHENTERMINE HCL 37.5 MG TABS Take one by mouth daily 2 PHENTERMINE HCL 93932332464 No Longer Active Baltazar Childers MD Activ e ROBAXIN-750 750 MG TABS Take one by mouth daily ME THOCARBAMOL 90253728888 Active Baltazar Childers MD Active TIZANIDINE HCL 4 MG TABS 1 daily as needed for muscle spasm 2011 TIZANIDINE HCL 35629265509 No Longer Active Dawna Salazar RN Active [place] SaltUCH ULTRA BLUE STRP Test twice a day GLUCO SE BLOOD 44910010922 Active Baltazar Childers MD Active [id number]-[id number] 50-325-40 MG TABS 1 four time s a day as needed for heacache HYCHIGYZBO-VDAN-PFNBVHWG 54060479194 Active Baltazar Childers MD Active SUMATRIPTAN SUCCINATE 100 MG TABS 1 tablet by mouth at onset of migraine as needed SUMATRIPTAN SUCCINATE 61438700163 Active Baltazar bynum MD Active LORATADINE 10 MG TABS Take one by mouth daily LORATADINE 06863771832 Active Baltazar Childers MD Active FUROSEMIDE 40 MG TABS Take one by mouth daily FUROSEMIDE 25317976940 Active Baltazar Childers MD Active LISINOPRIL 20 MG TABS Take one by mouth daily at bedtime LISINOPRIL 56309308406 Active Baltazar Childers MD Active OMEPRAZOLE 20 MG CPDR Take one by mouth daily OMEPRAZOLE 19100456101 Active Baltazar Childers MD Active HYDROXYZINE HCL 25 MG TABS Take one by mouth daily HYDROXYZINE HCL 76690008867 Active Baltazar Childers MD Active GLIPIZIDE 10 MG TABS 1 tablet by mouth twice daily GLIPIZIDE 99487669946 Active Baltazar Childers MD Active ALPRAZOLAM 1 MG TABS 1 tablet by mouth daily at bedtime for restles s leg ALPRAZOLAM 59035779825 Active Baltazar Childers MD Active METFORMIN HCL 1000 MG TABS Take one by mouth twice daily METFORMIN HCL 32218171853 Active Baltazar Childers MD Active TIZANIDINE HCL 4 MG TABS 1 daily as needed for muscle spasm 2011 TIZANIDINE HCL 4 MG TABS 473365 TIZANIDINE HCL Inactiv e PHENTERMINE HCL 37.5 MG TABS Take one by mouth daily 2 PHENTERMINE HCL 37.5 MG TABS 418017 PHENTERMINE HCL Inactive CRESTOR 10 MG TABS 1 by mouth every day C RESTOR 10 MG TABS ROSUVASTATIN CALCIUM Inactive LIPITOR 20 MG TABS Take one by mouth daily in evening LIPITOR 20 MG TABS 147110 ATORVASTATIN CALCIUM Inactive DEPO-TESTOSTERONE 200 MG/ML OIL as directed 8 DEPO-TESTOSTERONE 200 MG/ML OIL 427442 TESTOSTERONE CYPIONATE Inactive NAPROXEN 500 MG TABS 1 tablet by mouth twice daily 201 07/27/22 NAPROXEN 500 MG TABS 388554 NAPROXEN Inactive GABAPENTIN 300 MG CAPS 1 po qd x 2 days, then 1 po BID x 2 d ays, then 1 po TID GABAPENTIN 300 MG CAPS 439587 GABAPENTIN Inact amie Immunizations Vaccine Administration Date Value Standard Floyd cription pneumococcal immunization administered Pneumovax 23 [CVX33] pneumococcal polysaccharide vaccine, 23 valent Seasonal influenza vaccine, injectable, containing preservative, for > 3 years old (Afluria, FluLaval, Fluzone, Fluvirin, Fluarix, Agriflu(>= 18 yo)) Fluzone (>3 yrs.) [GOW444] Influenza, seasonal, inject able Seasonal influenza vaccine, injectable, containing preservative, for > 3 years old (Afluria, FluLaval, Fluzone, Fluvirin, Fluarix, Agriflu(>= 18 yo)) Fluzone (>3 yrs.) [CKC812] Influenza, seasonal, inject able Vital Signs Date [...] - Chem istry sodium, serum 140 mmol/L 227-134 2623/05/05 potassium, serum 4.9 mmol/L 3.5-5.2 chloride, serum [...] Panel - Chemistry sodium, serum 139 mmol/L 768-321 0030/01/20 potassium, serum 5.3 mmol/L 3.5-5.2 chloride, serum [...] mg/g mg/g{creat} 0-29 cholesterol, serum 319 mg/dL 926-009 7687/08/21 triglyceride, serum, fasting 546 mg/dL 30-200 HDL cholesterol, serum 39 mg/dL 32-96 LDL cholesterol, serum 167.00 mg/dL 5.00-130.00 hemoglobin A1C, blood, as % of total hemoglobin 7.7 % 4.3-6.0 sodium, serum 138 mmol/L 810-954 0306/08/21 potassium, serum 4.3 mmol/L 3.5-5.2 chloride, serum [...] 0-19 Encounters Code Encounter Date Provider Facility CPT-13634 Level 4 Est. Patient 11:29:55 CDT Baltazar Childers MD [facility] CPT-67113 Level 4 Est. Patient 14:15:19 CDT Baltazar Childers MD [facility] CPT-14652 Level 4 Est. Patient 12:20:13 CDT Baltazar Childers MD [facility] CPT-51805 Level 4 Est. Patient 14:52:45 ORDER BUILDER Baltazar Childers MD [facility] CPT-96353 Level 4 Est. Patient 14:18:34 ORDER BUILDER Baltazar Childers MD [facility] CPT-67360 Level 4 Est. Patient 15:18:29 CDT Baltazar Childers MD [facility] CPT-67924 Level 3 Est. Patient 12:45:34 CDT Baltazar Childers MD [facility] CPT-38834 Level 3 Est. Patient 10:10:11 CDT Baltazar Childers MD [facility] CPT-97686 Level 3 Est. Patient 14:07:50 CDT Baltazar Childers MD [facility] CPT-54880 Level 4 Est. Patient 12:26:10 ORDER BUILDER Baltazar Childers MD [facility] CPT-92019 Level 4 Est. Patient 14:45:38 CDT Baltazar Childers MD [facility] CPT-10329 Level 4 New Patient 12:30:48 CDT Baltazar hinton MD [facility] Procedures Code Procedure Name Date Entry Date Standard Desc ription CPT-96810 Venipuncture Draw Fee 12:10:27 ORDER BUILDER CPT-28162 Fluzone Quadrivalent Intramuscular Suspe nsion 0.5 ML 10:49:13 CDT CPT-09766 First Vx Component - Ix admi n via ID IM or jet inj without physician counseling 15:17:19 ORDER BUILDER CPT-59323 Pneumovax 15:17:19 ORDER BUILDER CPT-83510 Pneumovax 14:52:45 ORDER BUILDER CPT-41893 Venipuncture Draw Fee 14:06:30 ORDER BUILDER CPT-000 Give Appropriate Flu Vaccine 14:18:34 ORDER BUILDER 2 CPT-54318 Administration single or combination vac cine inc oral 14:46:00 ORDER BUILDER CPT-74012 Influenza split virus > age 3 14:46:00 ORDER BUILDER CPT-OV Office Visit 19:13:16 CDT CPT-73679 Zostavax 18:41:56 CDT CPT-69411 Administration single or combination vac cine inc oral 12:56:39 CDT CPT-75532 Zoster Vaccine (Zostavax) 12:56:39 CDT 2012 CPT-47911 Venipuncture Draw Fee 10:58:57 CDT CPT-95554 Sono pelvis non OB uterus ovaries cervix 17:45:04 CDT CPT-91690 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
--- OUTSIDE RECORDS SUMMARY | 2019-10-27 13:03 | XMS REPORT | Clinical Summary ---
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 Benign neoplasm of colon PERIPHERAL NEUROPATHY [...] ronary atherosclerosis of unspecified type of vessel, [place] or graft OTH NONSPC ABN FINDNG RAD&OTH [...] a day as needed 2 NAPROXEN SODIUM 01636917541 No Longer Active Baltazar Childers MD Active ATORVASTATIN CALCIUM 20 MG ORAL TABS Take 1 tab daily ATORVASTATIN CALCIUM 45786560110 Active Kelly Iraheta LPN Active FUROSEMIDE 40 MG TABS Take one by mouth daily FUROSEMIDE 59490248927 Active Baltazar Childers MD Active LISINOPRIL 20 MG TABS Take one by mouth daily at bedtime LISINOPRIL 12843009006 Active Baltazar Childers MD Active ONETOUCH ULTRA BLUE STRP Test twice a day GLUCO SE BLOOD 12826049766 No Longer Active Baltazar Childers MD Active TRUEPLUS LANCETS 33G MISC Test twice a day LANCET S 21525724056 Active Baltazar Childers MD Active TRUEDRAW LANCING DEVICE MISC Test twice a day L ANCET DEVICES 50011759212 Active Baltazar Childers MD Active TRUETRACK TEST STRP Test twice a day GLUCOSE BLOO D 26455819961 Active Baltazar Childers MD Active TRUETRACK BLOOD GLUCOSE W/DEVICE KIT Test twice a day BLOOD GLUCOSE MONITORING SUPPL 95209042487 Active Baltazar Childers MD Activ e HYDROCODONE-ACETAMINOPHEN 7.5-325 MG TABS Take 1 tab every 6-8 hour s PRN HYDROCODONE-ACETAMINOPHEN 41638519851 Active Baltazar Childers MD Active NORTRIPTYLINE HCL 50 MG CAPS 1 every night for neuropathy 4 NORTRIPTYLINE HCL 55880576553 Active Baltazar Childers MD Acti ve GABAPENTIN 300 MG CAPS 1 three times a day GABAPE NTIN 25844948712 Active Kelly Iraheta LPN Active GABAPENTIN 300 MG CAPS 1 po qd x 2 days, then 1 po BID x 2 d ays, then 1 po TID GABAPENTIN 78706199084 No Longer Active Baltazar silverman MD Active TRAMADOL HCL 50 MG TABS 1 twice a day as needed for pain TRAMADOL HCL 86318950094 Active Baltazar Childers MD Active NAPROXEN 500 MG TABS 1 tablet by mouth twice daily NAPROXEN 96936211308 No Longer Active Baltazar Childers MD Active PROAIR HFA 108 (90 BASE) MCG/ACT AERS 2 puffs four times a d ay as needed ALBUTEROL SULFATE 02793599099 Active Baltazar Childers MD Active DEPO-TESTOSTERONE 200 MG/ML OIL as directed RUFINO TOSTERONE CYPIONATE 71458855656 No Longer Active Baltazar Childers MD Active LIPITOR 20 MG TABS Take one by mouth daily in evening ATORVASTATIN CALCIUM 58252497561 No Longer Active Baltazar Childers MD Activ e CRESTOR 10 MG TABS 1 by mouth every day R OSUVASTATIN CALCIUM 03056710989 No Longer Active Baltazar Childers MD Activ e PHENTERMINE HCL 37.5 MG TABS Take one by mouth daily 2 PHENTERMINE HCL 80769612381 No Longer Active Baltazar Childers MD Activ e ROBAXIN-750 750 MG TABS Take one by mouth daily ME THOCARBAMOL 02601224270 Active Baltazar Childers MD Active TIZANIDINE HCL 4 MG TABS 1 daily as needed for muscle spasm 2011 TIZANIDINE HCL 61336889070 No Longer Active Dawna Salazar RN Active [id number] 50-325-40 MG TABS 1 four time s a day as needed for heacache [id number] 31799146261 Active Baltazar Childers MD Active SUMATRIPTAN SUCCINATE 100 MG TABS 1 tablet by mouth at onset of migraine as needed SUMATRIPTAN SUCCINATE 81502461513 Active Melody Paez Active LORATADINE 10 MG TABS Take one by mouth daily LORATADINE 42831226819 Active Baltazar Childers MD Active OMEPRAZOLE 20 MG CPDR Take one by mouth daily OMEPRAZOLE 70286187542 Active Baltazar Childers MD Active HYDROXYZINE HCL 25 MG TABS Take one by mouth daily HYDROXYZINE HCL 87686526694 Active Baltazar Childers MD Active GLIPIZIDE 10 MG TABS 1 tablet by mouth twice daily GLIPIZIDE 22957380637 Active Baltazar Childers MD Active ALPRAZOLAM 1 MG TABS 1 tablet by mouth daily at bedtime for restles s leg ALPRAZOLAM 05781328360 Active Baltazar Childers MD Active METFORMIN HCL 1000 MG TABS Take one by mouth twice daily METFORMIN HCL 64565842401 Active Baltazar Childers MD Active TIZANIDINE HCL 4 MG TABS 1 daily as needed for muscle spasm 2011 TIZANIDINE HCL 4 MG TABS 453626 TIZANIDINE HCL Inactiv e PHENTERMINE HCL 37.5 MG TABS Take one by mouth daily 2 PHENTERMINE HCL 37.5 MG TABS 305578 PHENTERMINE HCL Inactive CRESTOR 10 MG TABS 1 by mouth every day C RESTOR 10 MG TABS ROSUVASTATIN CALCIUM Inactive LIPITOR 20 MG TABS Take one by mouth daily in evening LIPITOR 20 MG TABS 617805 ATORVASTATIN CALCIUM Inactive DEPO-TESTOSTERONE 200 MG/ML OIL as directed 8 DEPO-TESTOSTERONE 200 MG/ML OIL 069021 TESTOSTERONE CYPIONATE Inactive NAPROXEN 500 MG TABS 1 tablet by mouth twice daily 201 07/27/22 NAPROXEN 500 MG TABS 323015 NAPROXEN Inactive GABAPENTIN 300 MG CAPS 1 po qd x 2 days, then 1 po BID x 2 d ays, then 1 po TID GABAPENTIN 300 MG CAPS 000248 GABAPENTIN Inact amie ONETOUCH ULTRA BLUE STRP Test twice a day ONETOUCH ULTRA BLUE STRP GLUCOSE BLOOD Inactive NAPROXEN SODIUM 220 MG ORAL TABS 1 three times a day as needed 2 NAPROXEN SODIUM 220 MG ORAL TABS 939099 NAPROXEN SODIUM Inactive Immunizations Vaccine Administration Date Value Standard Floyd cription pneumococcal immunization administered Pneumovax 23 [CVX33] pneumococcal polysaccharide vaccine, 23 valent Seasonal influenza vaccine, injectable, containing preservative, for > 3 years old (Afluria, FluLaval, Fluzone, Fluvirin, Fluarix, Agriflu(>= 18 yo)) Fluzone (>3 yrs.) [[id number]] Influenza, seasonal, inject able Seasonal influenza vaccine, injectable, containing preservative, for > 3 years old (Afluria, FluLaval, Fluzone, Fluvirin, Fluarix, Agriflu(>= 18 yo)) Fluzone (>3 yrs.) [[id number]] Influenza, seasonal, inject able Vital Signs Date [...] - Chem istry sodium, serum 140 mmol/L 650-566 8393/05/05 potassium, serum 4.9 mmol/L 3.5-5.2 chloride, serum 99 mmol/L 98-107 carbon dioxide, venous blood 34.3 mmol/L 21.0-32 .0 blood glucose 132 mg/dL 65-110 calcium, serum 10.1 mg/dL 8.5-10.1 urea nitrogen, blood 23 mg/dL 7-18 creatinine, serum 2.00 mg/dL 0.60-1.30 Lab Report: CBC, Renal Panel - Chemistry sodium, serum 139 mmol/L 706-314 2146/01/20 potassium, serum 5.3 mmol/L 3.5-5.2 chloride, serum [...] Panel - Chemistry sodium, serum 138 mmol/L 416-962 1479/11/23 carbon dioxide, venous blood 32.4 mmol/L 21.0-32 .0 potassium, serum 5.7 mmol/L 3.5-5.2 chloride, serum 98 mmol/L 98-107 blood glucose 136 mg/dL 65-110 urea nitrogen, blood 18 mg/dL 7-18 creatinine, serum 1.71 mg/dL 0.55-1.30 alanine aminotransferase (SGPT), serum 71 U/L 12-78 aspartate aminotransferase (SGOT), serum 34 U/L 15-37 calcium, serum 9.4 mg/dL 8.5-10.1 bilirubin, serum, total 0.40 mg/dL 0.00-1.00 cholesterol, serum 405 mg/dL 797-840 8402/11/23 triglyceride, serum, fasting 709 mg/dL 30-200 HDL cholesterol, serum 53 mg/dL 32-96 LDL cholesterol, serum 210 mg/dL 0-130 Lab Report: HGBA1C - Chemistry hemoglobin A1C, blood, as % of total hemoglobin 7.3 % 4.3-6.0 hemoglobin A1C, blood, as % of total hemoglobin 7.7 % 4.3-6.0 Lab Report: MICROALB/CREAT W/RATIO - Maryam oj albumin/creatinine ratio, urine < 30 mg/g mg/g{creat} 0-2 9 Lab Report: MICROALB/CREAT W/RATIO - Lab microalbumin, urine 10 0-19 Office Visit: Medication refill - Chemis try cholesterol, target level 200 mg/dL LDL target level 70 mg/dL HDL cholesterol, serum, target level 40 mg/dL triglyceride, target level 150 mg/dL Encounters Code Encounter Date Provider Facility CPT-95635 Level 4 Est. Patient 16:54:07 ASSISTANT CONSTRUCTION SUPERINTENDENT Baltazar Childers MD [facility] CPT-21164 Level 4 Est. Patient 15:42:12 CDT Baltazar Childers MD [facility] CPT-29473 Level 4 Est. Patient 11:29:55 CDT Baltazar Childers MD [facility] CPT-49801 Level 4 Est. Patient 14:15:19 CDT Baltazar Childers MD [facility] CPT-77648 Level 4 Est. Patient 12:20:13 CDT Baltazar Childers MD [facility] CPT-59326 Level 4 Est. Patient 14:52:45 ASSISTANT CONSTRUCTION SUPERINTENDENT Baltazar Childers MD [facility] CPT-10553 Level 4 Est. Patient 14:18:34 ASSISTANT CONSTRUCTION SUPERINTENDENT Baltazar Childers MD [facility] CPT-41529 Level 4 Est. Patient 15:18:29 CDT Baltazar Childers MD [facility] CPT-32956 Level 3 Est. Patient 12:45:34 CDT Baltazar Childers MD [facility] CPT-13343 Level 3 Est. Patient 10:10:11 CDT Baltazar Childers MD [facility] CPT-07220 Level 3 Est. Patient 14:07:50 CDT Baltazar Childers MD [facility] CPT-91679 Level 4 Est. Patient 12:26:10 ASSISTANT CONSTRUCTION SUPERINTENDENT Baltazar Childers MD [facility] CPT-19187 Level 4 Est. Patient 14:45:38 CDT Baltazar Childers MD [facility] CPT-85517 Level 4 New Patient 12:30:48 CDT Baltazar hinton MD [facility] Procedures Code Procedure Name Date Entry Date Standard Desc ription CPT-93696 Immunization Single Admin 17:35:35 CDT 2014 CPT-83449 Fluzone Quadrivalent preservative free ( >=3yrs.) 17:35:35 CDT CPT-99614 Venipuncture Draw Fee 12:10:27 ASSISTANT CONSTRUCTION SUPERINTENDENT CPT-05922 Fluzone Quadrivalent Intramuscular Suspe nsion 0.5 ML 10:49:13 CDT CPT-96244 First Vx Component - Ix admi n via ID IM or jet inj without physician counseling 15:17:19 ASSISTANT CONSTRUCTION SUPERINTENDENT CPT-82225 Pneumovax 23 15:17:19 ASSISTANT CONSTRUCTION SUPERINTENDENT CPT-28760 Pneumovax 14:52:45 ASSISTANT CONSTRUCTION SUPERINTENDENT CPT-23161 Venipuncture Draw Fee 14:06:30 ASSISTANT CONSTRUCTION SUPERINTENDENT CPT-000 Give Appropriate Flu Vaccine 14:18:34 ASSISTANT CONSTRUCTION SUPERINTENDENT 2 CPT-78748 Administration single or combination vac cine inc oral 14:46:00 ASSISTANT CONSTRUCTION SUPERINTENDENT CPT-10146 Influenza split virus > age 3 14:46:00 ASSISTANT CONSTRUCTION SUPERINTENDENT CPT-OV Office Visit 19:13:16 CDT CPT-17475 Zostavax 18:41:56 CDT CPT-49398 Administration single or combination vac cine inc oral 12:56:39 CDT CPT-79149 Zoster Vaccine (Zostavax) 12:56:39 CDT 2012 CPT-43136 Venipuncture Draw Fee 10:58:57 CDT CPT-16123 Sono pelvis non OB uterus ovaries cervix 17:45:04 CDT CPT-24184 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
--- OUTSIDE RECORDS SUMMARY | 2019-10-27 13:04 | XMS REPORT | Clinical Summary ---
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 Benign neoplasm of colon PERIPHERAL NEUROPATHY 356.9 [...] ronary atherosclerosis of unspecified type of vessel, [place] or graft OTH NONSPC ABN FINDNG RAD&OTH [...] day to coat the stomach 2015 SUCRALFATE 88392827339 No Longer Active Baltazar Childers MD Active PEN NEEDLES 31G X 6 MM MISC use 1 daily INSULIN PEN NEEDLE 35658289239 Active Bella Suarez MECHANICAL ARTIST Active TOUJEO SOLOSTAR 300 UNIT/ML SC SOPN 10 units SC daily INSULIN GLARGINE 50866780901 No Longer Active Martita Godinez RMA Active LANTUS SOLOSTAR 100 UNIT/ML SC SOPN 10 units SC daily INSULIN GLARGINE 00050400361 Active Baltazar Childers MD Active NAPROXEN SODIUM 220 MG ORAL TABS 1 three times a day as needed 2 NAPROXEN SODIUM 07075438916 No Longer Active Baltazar Childers MD Active ATORVASTATIN CALCIUM 20 MG ORAL TABS Take 1 tab daily ATORVASTATIN CALCIUM 21122381471 Active Baltazar Childers MD Active FUROSEMIDE 40 MG TABS Take one by mouth daily FUROSEMIDE 89141709155 Active Baltazar Childers MD Active LISINOPRIL 20 MG TABS Take one by mouth daily at bedtime LISINOPRIL 67856376453 Active KENDALL Juarez Active ONETOUCH ULTRA BLUE STRP Test twice a day GLUCO SE BLOOD 15209036813 No Longer Active Baltazar Childers MD Active TRUEPLUS LANCETS 33G MISC Test twice a day LANCET S 18915092366 Active KENDALL Juarez Active TRUEDRAW LANCING DEVICE MISC Test twice a day L ANCET DEVICES 63993337498 Active Baltazar Childers MD Active TRUETRACK TEST STRP Test twice a day GLUCOSE BLOO D 99667318696 Active KENDALL Juarez Active TRUETRACK BLOOD GLUCOSE W/DEVICE KIT Test twice a day BLOOD GLUCOSE MONITORING SUPPL 41924217795 Active Baltazar Childers MD Activ e HYDROCODONE-ACETAMINOPHEN 7.5-325 MG TABS Take 1 tab every 6-8 hour s PRN HYDROCODONE-ACETAMINOPHEN 78510163325 Active Baltazar Childers MD Active NORTRIPTYLINE HCL 50 MG CAPS 1 every night for neuropathy 4 NORTRIPTYLINE HCL 74082401412 Active Baltazar Childers MD Acti ve GABAPENTIN 300 MG CAPS 1 three times a day GABAPE NTIN 04342039004 Active Baltazar Childers MD Active GABAPENTIN 300 MG CAPS 1 po qd x 2 days, then 1 po BID x 2 d ays, then 1 po TID GABAPENTIN 64812372029 No Longer Active Baltazar silverman MD Active TRAMADOL HCL 50 MG TABS 1 twice a day as needed for pain TRAMADOL HCL 91915912175 Active Baltazar Childers MD Active NAPROXEN 500 MG TABS 1 tablet by mouth twice daily NAPROXEN 48583759371 No Longer Active Baltazar Childers MD Active PROAIR HFA 108 (90 BASE) MCG/ACT AERS 2 puffs four times a d ay as needed ALBUTEROL SULFATE 73968710622 Active KENDALL Juarez Active DEPO-TESTOSTERONE 200 MG/ML OIL as directed RUFINO TOSTERONE CYPIONATE 02998104988 No Longer Active Baltazar Childers MD Active LIPITOR 20 MG TABS Take one by mouth daily in evening ATORVASTATIN CALCIUM 30266904158 No Longer Active Baltazar Childers MD Activ e CRESTOR 10 MG TABS 1 by mouth every day R OSUVASTATIN CALCIUM 55358348564 No Longer Active Baltzaar Childers MD Activ e PHENTERMINE HCL 37.5 MG TABS Take one by mouth daily 2 PHENTERMINE HCL 61820620658 No Longer Active Baltazar Childers MD Activ e ROBAXIN-750 750 MG TABS Take one by mouth daily ME THOCARBAMOL 45995487500 Active Baltazar Childers MD Active TIZANIDINE HCL 4 MG TABS 1 daily as needed for muscle spasm 2011 TIZANIDINE HCL 41061486591 No Longer Active Dawna Salazar RN Active [id number]-LFVP-KVEOPWWZ 50-325-40 MG TABS 1 four time s a day as needed for heacache [id number] 61046744332 Active Baltazar Childers MD Active SUMATRIPTAN SUCCINATE 100 MG TABS 1 tablet by mouth at onset of migraine as needed SUMATRIPTAN SUCCINATE 18657653969 Active Baltazar bynum MD Active LORATADINE 10 MG TABS Take one by mouth daily LORATADINE 59197624101 Active Baltazar Childers MD Active OMEPRAZOLE 20 MG CPDR Take one by mouth daily OMEPRAZOLE 77959174560 Active KENDALL Juarez Active HYDROXYZINE HCL 25 MG TABS Take one by mouth daily HYDROXYZINE HCL 12587430814 Active Baltazar Childers MD Active GLIPIZIDE 10 MG TABS 1 tablet by mouth twice daily GLIPIZIDE 27616547254 Active Baltazar Childers MD Active ALPRAZOLAM 1 MG TABS 1 tablet by mouth daily at bedtime for restles s leg ALPRAZOLAM 64151090158 Active Baltazar Childers MD Active METFORMIN HCL 1000 MG TABS Take one by mouth twice daily METFORMIN HCL 33402609143 Active Baltazar Childers MD Active TIZANIDINE HCL 4 MG TABS 1 daily as needed for muscle spasm 2011 TIZANIDINE HCL 4 MG TABS 830137 TIZANIDINE HCL Inactiv e PHENTERMINE HCL 37.5 MG TABS Take one by mouth daily 2 PHENTERMINE HCL 37.5 MG TABS 382750 PHENTERMINE HCL Inactive CRESTOR 10 MG TABS 1 by mouth every day C RESTOR 10 MG TABS 999044 ROSUVASTATIN CALCIUM Inactive LIPITOR 20 MG TABS Take one by mouth daily in evening LIPITOR 20 MG TABS 703508 ATORVASTATIN CALCIUM Inactive DEPO-TESTOSTERONE 200 MG/ML OIL as directed 8 DEPO-TESTOSTERONE 200 MG/ML OIL 854443 TESTOSTERONE CYPIONATE Inactive NAPROXEN 500 MG TABS 1 tablet by mouth twice daily 201 07/27/22 NAPROXEN 500 MG TABS 807129 NAPROXEN Inactive GABAPENTIN 300 MG CAPS 1 po qd x 2 days, then 1 po BID x 2 d ays, then 1 po TID GABAPENTIN 300 MG CAPS 752328 GABAPENTIN Inact amie ONETOUCH ULTRA BLUE STRP Test twice a day ONETOUCH ULTRA BLUE STRP GLUCOSE BLOOD Inactive NAPROXEN SODIUM 220 MG ORAL TABS 1 three times a day as needed 2 NAPROXEN SODIUM 220 MG ORAL TABS 433588 NAPROXEN SODIUM Inactive TOUJEO SOLOSTAR 300 UNIT/ML SC SOPN 10 units SC daily TOUJEO SOLOSTAR 300 UNIT/ML SC SOPN INSULIN GLARGINE Inac tive SUCRALFATE 1 GM TABS 1 four times a day to coat the stomach 2015 SUCRALFATE 1 GM TABS 389077 SUCRALFATE Inactive Immunizations Vaccine Administration Date Value Standard Floyd cription pneumococcal immunization administered Pneumovax 23 [CVX33] pneumococcal polysaccharide vaccine, 23 valent Seasonal influenza vaccine, injectable, containing preservative, for > 3 years old (Afluria, FluLaval, Fluzone, Fluvirin, Fluarix, Agriflu(>= 18 yo)) Fluzone (>3 yrs.) [[id number]] Influenza, seasonal, inject able Seasonal influenza vaccine, injectable, containing preservative, for > 3 years old (Afluria, FluLaval, Fluzone, Fluvirin, Fluarix, Agriflu(>= 18 yo)) Fluzone (>3 yrs.) [ZIO293] Influenza, seasonal, inject able Vital Signs Date [...] C - Chemistry sodium, serum 139 mmol/L 011-486 9477/07/07 potassium, serum 4.5 mmol/L 3.5-5.2 chloride, serum [...] 7.9 % 4.3-6.0 sodium, serum 139 mmol/L 751-444 8385/02/04 potassium, serum 5.4 mmol/L 3.5-5.2 chloride, serum [...] Panel - Chemistry sodium, serum 143 mmol/L 411-714 6828/12/19 carbon dioxide, venous blood 32.5 mmol/L 21.0-32 .0 potassium, serum 4.9 mmol/L 3.5-5.2 chloride, serum 101 mmol/L 98-107 blood glucose 129 mg/dL 65-110 urea nitrogen, blood 18 mg/dL 7-18 creatinine, serum 1.79 mg/dL 0.55-1.30 alanine aminotransferase (SGPT), serum 34 U/L 12-78 aspartate aminotransferase (SGOT), serum 26 U/L 15-37 calcium, serum 8.9 mg/dL 8.5-10.1 bilirubin, serum, total 0.30 mg/dL 0.00-1.00 cholesterol, serum 214 mg/dL 117-935 9023/12/19 triglyceride, serum, fasting 351 mg/dL 30-200 HDL cholesterol, serum 52 mg/dL 32-96 LDL cholesterol, serum 92 mg/dL 0-130 Lab Report: HGBA1C - Chemistry hemoglobin A1C, blood, as % of total hemoglobin 7.3 % 4.3-6.0 Lab Report: Renal Panel - Chemistry sodium, serum 141 mmol/L 172-808 5921/08/08 potassium, serum 4.9 mmol/L 3.5-5.2 chloride, serum 101 mmol/L 98-107 carbon dioxide, venous blood 34.1 mmol/L 21.0-32 .0 creatinine, serum 1.98 mg/dL 0.55-1.30 blood glucose 193 mg/dL 65-110 urea nitrogen, blood 30 mg/dL 7-18 calcium, serum 9.8 mg/dL 8.5-10.1 Encounters Code Encounter Date Provider Facility CPT-32768 Level 4 Est. Patient 11:34:17 CDT Baltazar Childers MD [facility]-03188 Level 3 Est. Patient 16:40:40 CDT Baltazar Childers MD [facility]-86288 Level 4 Est. Patient 10:41:24 CDT Baltazar Childers MD [facility]-03089 Level 4 Est. Patient 16:01:48 CDT Baltazar Childers MD [facility]-17416 Level 4 Est. Patient 16:54:07 NURSE PRIVATE DUTY Baltazar Childers MD [facility]-86288 Level 4 Est. Patient 15:42:12 CDT Baltazar Childers MD [facility] CPT-81154 Level 4 Est. Patient 11:29:55 CDT Baltazar Childers MD [facility] CPT-95717 Level 4 Est. Patient 14:15:19 CDT Baltazar Childers MD [facility] CPT-13761 Level 4 Est. Patient 12:20:13 CDT Baltazar Childers MD [facility] CPT-56215 Level 4 Est. Patient 14:52:45 NURSE PRIVATE DUTY Baltazar Childers MD [facility] CPT-82307 Level 4 Est. Patient 14:18:34 NURSE PRIVATE DUTY Baltazar Childers MD [facility]-28740 Level 4 Est. Patient 15:18:29 CDT Baltazar Childers MD [facility] CPT-83663 Level 3 Est. Patient 12:45:34 CDT Baltazar Childers MD [facility] CPT-78770 Level 3 Est. Patient 10:10:11 CDT Baltazar Childers MD [facility] CPT-27591 Level 3 Est. Patient 14:07:50 CDT Baltazar Childers MD [facility] CPT-72019 Level 4 Est. Patient 12:26:10 NURSE PRIVATE DUTY Baltazar Childers MD [facility] CPT-81099 Level 4 Est. Patient 14:45:38 CDT Baltazar Childers MD [facility] CPT-74500 Level 4 New Patient 12:30:48 CDT Baltazar hinton MD [facility] Procedures Code Procedure Name Date Entry Date Standard Desc ription CPT-15520 Lipid - LAB USE ONLY 17:39:15 NURSE PRIVATE DUTY 9 CPT-19110 HGBA1C - LAB USE ONLY 17:39:15 NURSE PRIVATE DUTY CPT-44201 CMP - LAB USE ONLY 17:39:14 NURSE PRIVATE DUTY CPT-09743 Venipuncture Draw Fee 17:39:14 NURSE PRIVATE DUTY CPT-10029 First Vx - Ix admin via ID I M or jet injects without counseling by physician 16:55:17 NURSE PRIVATE DUTY CPT-84312 Fluzone Quadrivalent Intramuscular Suspe nsion 0.5 ML 16:55:17 NURSE PRIVATE DUTY CPT-22163 Renal Panel - LAB USE ONLY 17:39:20 CDT 201 10/31/07 CPT-92388 CBC - LAB USE ONLY 17:39:20 CDT CPT-38885 Venipuncture Draw Fee 17:39:20 CDT CPT-61963 Venipuncture Draw Fee 14:33:30 CDT CPT-66932 Renal Panel - LAB USE ONLY 14:33:30 CDT 201 10/31/07 CPT-81075 CBC - LAB USE ONLY 14:33:29 CDT CPT-35179 Venipuncture Draw Fee 14:50:21 NURSE PRIVATE DUTY CPT-37466 Immunization Single Admin 17:35:35 CDT 2014 CPT-95983 Fluzone Quadrivalent preservative free ( >=3yrs.) 17:35:35 CDT CPT-84344 Venipuncture Draw Fee 12:10:27 NURSE PRIVATE DUTY CPT-30092 Fluzone Quadrivalent Intramuscular Suspe nsion 0.5 ML 10:49:13 CDT CPT-73050 First Vx Component - Ix admi n via ID IM or jet inj without physician counseling 15:17:19 NURSE PRIVATE DUTY CPT-20141 Pneumovax 23 15:17:19 NURSE PRIVATE DUTY CPT-61025 Pneumovax 14:52:45 NURSE PRIVATE DUTY CPT-44727 Venipuncture Draw Fee 14:06:30 NURSE PRIVATE DUTY CPT-000 Give Appropriate Flu Vaccine 14:18:34 NURSE PRIVATE DUTY 2 CPT-22413 Administration single or combination vac cine inc oral 14:46:00 NURSE PRIVATE DUTY CPT-97210 Influenza split virus > age 3 14:46:00 NURSE PRIVATE DUTY CPT-OV Office Visit 19:13:16 CDT CPT-53798 Zostavax 18:41:56 CDT CPT-16794 Administration single or combination vac cine inc oral 12:56:39 CDT CPT-03750 Zoster Vaccine (Zostavax) 12:56:39 CDT 2012 CPT-57863 Venipuncture Draw Fee 10:58:57 CDT CPT-77459 Sono pelvis non OB uterus ovaries cervix 17:45:04 CDT CPT-83091 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
--- OUTSIDE RECORDS SUMMARY | 2019-10-27 13:04 | XMS REPORT | Clinical Summary ---
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 MANNEQUIN MOLDER Benign neoplasm of colon PERIPHERAL NEUROPATHY 356.9 [...] a day as needed 2 NAPROXEN SODIUM 22728885887 No Longer Active Baltazar Childers MD Active ATORVASTATIN CALCIUM 20 MG ORAL TABS Take 1 tab daily ATORVASTATIN CALCIUM 82786997449 Active KENDALL Juarez Active FUROSEMIDE 40 MG TABS Take one by mouth daily FUROSEMIDE 37827303036 Active Baltazar Childers MD Active LISINOPRIL 20 MG TABS Take one by mouth daily at bedtime LISINOPRIL 54540740368 Active KENDALL Juarez Active ONETOUCH ULTRA BLUE STRP Test twice a day GLUCO SE BLOOD 12193279671 No Longer Active Baltazar Childers MD Active TRUEPLUS LANCETS 33G MISC Test twice a day LANCET S 44687874781 Active KENDALL Juarez Active TRUEDRAW LANCING DEVICE MISC Test twice a day L ANCET DEVICES 82524261086 Active Baltazar Childers MD Active TRUETRACK TEST STRP Test twice a day GLUCOSE BLOO D 39631476598 Active KENDALL Juarez Active TRUETRACK BLOOD GLUCOSE W/DEVICE KIT Test twice a day BLOOD GLUCOSE MONITORING SUPPL 50181243072 Active Baltazar Childers MD Activ e HYDROCODONE-ACETAMINOPHEN 7.5-325 MG TABS Take 1 tab every 6-8 hour s PRN HYDROCODONE-ACETAMINOPHEN 15598090707 Active Baltazar Childers MD Active NORTRIPTYLINE HCL 50 MG CAPS 1 every night for neuropathy 4 NORTRIPTYLINE HCL 85238472992 Active Baltazar Childers MD Acti ve GABAPENTIN 300 MG CAPS 1 three times a day GABAPE NTIN 61968846775 Active KENDALL Juarez Active GABAPENTIN 300 MG CAPS 1 po qd x 2 days, then 1 po BID x 2 d ays, then 1 po TID GABAPENTIN 66042984275 No Longer Active Baltazar silvermna MD Active TRAMADOL HCL 50 MG TABS 1 twice a day as needed for pain TRAMADOL HCL 34968913584 Active Baltazar Childers MD Active NAPROXEN 500 MG TABS 1 tablet by mouth twice daily NAPROXEN 34707629274 No Longer Active Baltazar Childers MD Active PROAIR HFA 108 (90 BASE) MCG/ACT AERS 2 puffs four times a d ay as needed ALBUTEROL SULFATE 16749374338 Active KENDALL Juarez Active DEPO-TESTOSTERONE 200 MG/ML OIL as directed RUFINO TOSTERONE CYPIONATE 46034863666 No Longer Active Baltazar Childers MD Active LIPITOR 20 MG TABS Take one by mouth daily in evening ATORVASTATIN CALCIUM 60288235333 No Longer Active Baltazar Childers MD Activ e CRESTOR 10 MG TABS 1 by mouth every day R OSUVASTATIN CALCIUM 11481839213 No Longer Active Baltazar Childers MD Activ e PHENTERMINE HCL 37.5 MG TABS Take one by mouth daily 2 PHENTERMINE HCL 67735008096 No Longer Active Baltazar Childers MD Activ e ROBAXIN-750 750 MG TABS Take one by mouth daily ME THOCARBAMOL 20014048766 Active Baltazar Childers MD Active TIZANIDINE HCL 4 MG TABS 1 daily as needed for muscle spasm 2011 TIZANIDINE HCL 19700559554 No Longer Active Dawna Salazar RN Active [id number] 50-325-40 MG TABS 1 four time s a day as needed for heacache [id number] 17424179209 Active Baltazar Childers MD Active SUMATRIPTAN SUCCINATE 100 MG TABS 1 tablet by mouth at onset of migraine as needed SUMATRIPTAN SUCCINATE 88783704432 Active KENDALL Juarez Active LORATADINE 10 MG TABS Take one by mouth daily LORATADINE 01263739242 Active Baltazar Childers MD Active OMEPRAZOLE 20 MG CPDR Take one by mouth daily OMEPRAZOLE 21753412224 Active Crystal Lyons Active HYDROXYZINE HCL 25 MG TABS Take one by mouth daily HYDROXYZINE HCL 25753647272 Active Baltazar Childers MD Active GLIPIZIDE 10 MG TABS 1 tablet by mouth twice daily GLIPIZIDE 56803546004 Active KENDALL Juarez Active ALPRAZOLAM 1 MG TABS 1 tablet by mouth daily at bedtime for restles s leg ALPRAZOLAM 16143395087 Active Baltazar Childers MD Active METFORMIN HCL 1000 MG TABS Take one by mouth twice daily METFORMIN HCL 97426956561 Active Baltazar Childers MD Active TIZANIDINE HCL 4 MG TABS 1 daily as needed for muscle spasm 2011 TIZANIDINE HCL 4 MG TABS 483331 TIZANIDINE HCL Inactiv e PHENTERMINE HCL 37.5 MG TABS Take one by mouth daily 2 PHENTERMINE HCL 37.5 MG TABS 686424 PHENTERMINE HCL Inactive CRESTOR 10 MG TABS 1 by mouth every day C RESTOR 10 MG TABS 551611 ROSUVASTATIN CALCIUM Inactive LIPITOR 20 MG TABS Take one by mouth daily in evening LIPITOR 20 MG TABS 199203 ATORVASTATIN CALCIUM Inactive DEPO-TESTOSTERONE 200 MG/ML OIL as directed 8 DEPO-TESTOSTERONE 200 MG/ML OIL 918494 TESTOSTERONE CYPIONATE Inactive NAPROXEN 500 MG TABS 1 tablet by mouth twice daily 201 07/27/22 NAPROXEN 500 MG TABS 191819 NAPROXEN Inactive GABAPENTIN 300 MG CAPS 1 po qd x 2 days, then 1 po BID x 2 d ays, then 1 po TID GABAPENTIN 300 MG CAPS 961437 GABAPENTIN Inact amie ONETOUCH ULTRA BLUE STRP Test twice a day ONETOUCH ULTRA BLUE STRP GLUCOSE BLOOD Inactive NAPROXEN SODIUM 220 MG ORAL TABS 1 three times a day as needed 2 NAPROXEN SODIUM 220 MG ORAL TABS 685672 NAPROXEN SODIUM Inactive Immunizations Vaccine Administration Date Value Standard Floyd cription pneumococcal immunization administered Pneumovax 23 [CVX33] pneumococcal polysaccharide vaccine, 23 valent Seasonal influenza vaccine, injectable, containing preservative, for > 3 years old (Afluria, FluLaval, Fluzone, Fluvirin, Fluarix, Agriflu(>= 18 yo)) Fluzone (>3 yrs.) [[id number]] Influenza, seasonal, inject able Seasonal influenza vaccine, injectable, containing preservative, for > 3 years old (Afluria, FluLaval, Fluzone, Fluvirin, Fluarix, Agriflu(>= 18 yo)) Fluzone (>3 yrs.) [[id number]] Influenza, seasonal, inject able Vital Signs Date [...] 7.9 % 4.3-6.0 sodium, serum 139 mmol/L 591-784 8971/02/04 potassium, serum 5.4 mmol/L 3.5-5.2 chloride, serum [...] 0.40 mg/dL 0.00-1.00 cholesterol, serum 405 mg/dL 346-447 5776/11/23 triglyceride, serum, fasting 709 mg/dL 30-200 HDL [...] mg/dL Encounters Code Encounter Date Provider Facility CPT-15167 Level 4 Est. Patient 16:01:48 CDT Baltazar Childers MD [facility] CPT-49451 Level 4 Est. Patient 16:54:07 INSPECTION ENGINEER Baltazar Childers MD [facility] CPT-14085 Level 4 Est. Patient 15:42:12 CDT Baltazar Childers MD [facility] CPT-69199 Level 4 Est. Patient 11:29:55 CDT Baltazar Childers MD [facility] CPT-37857 Level 4 Est. Patient 14:15:19 CDT Baltazar Childers MD [facility] CPT-32719 Level 4 Est. Patient 12:20:13 CDT Baltazar Childers MD [facility] CPT-58413 Level 4 Est. Patient 14:52:45 INSPECTION ENGINEER Baltazar Childers MD [facility] CPT-14907 Level 4 Est. Patient 14:18:34 INSPECTION ENGINEER Baltazar Childers MD [facility] CPT-96598 Level 4 Est. Patient 15:18:29 CDT Baltazar Childers MD [facility] CPT-39405 Level 3 Est. Patient 12:45:34 CDT Baltazar Childers MD [facility] CPT-44437 Level 3 Est. Patient 10:10:11 CDT Baltazar Childers MD [facility] CPT-61730 Level 3 Est. Patient 14:07:50 CDT Baltazar Childers MD [facility] CPT-39029 Level 4 Est. Patient 12:26:10 INSPECTION ENGINEER Baltazar Childers MD [facility] CPT-65929 Level 4 Est. Patient 14:45:38 CDT Baltazar Childers MD [facility] CPT-08565 Level 4 New Patient 12:30:48 CDT Baltazar hinton MD [facility] Procedures Code Procedure Name Date Entry Date Standard Desc ription CPT-32979 Venipuncture Draw Fee 14:50:21 INSPECTION ENGINEER CPT-32653 Immunization Single Admin 17:35:35 CDT 2014 CPT-81962 Fluzone Quadrivalent preservative free ( >=3yrs.) 17:35:35 CDT CPT-31126 Venipuncture Draw Fee 12:10:27 INSPECTION ENGINEER CPT-71209 Fluzone Quadrivalent Intramuscular Suspe nsion 0.5 ML 10:49:13 CDT CPT-91338 First Vx Component - Ix admi n via ID IM or jet inj without physician counseling 15:17:19 INSPECTION ENGINEER CPT-78234 Pneumovax 15:17:19 INSPECTION ENGINEER CPT-42284 Pneumovax 14:52:45 INSPECTION ENGINEER CPT-49838 Venipuncture Draw Fee 14:06:30 INSPECTION ENGINEER CPT-000 Give Appropriate Flu Vaccine 14:18:34 INSPECTION ENGINEER 2 CPT-12574 Administration single or combination vac cine inc oral 14:46:00 INSPECTION ENGINEER CPT-22375 Influenza split virus > age 3 14:46:00 INSPECTION ENGINEER CPT-OV Office Visit 19:13:16 CDT CPT-22292 Zostavax 18:41:56 CDT CPT-75448 Administration single or combination vac cine inc oral 12:56:39 CDT CPT-37894 Zoster Vaccine (Zostavax) 12:56:39 CDT 2012 CPT-26597 Venipuncture Draw Fee 10:58:57 CDT CPT-53153 Sono pelvis non OB uterus ovaries cervix 17:45:04 CDT CPT-11487 Sono retroperitoneal complete kidneys an d bladder 17:14:36 CDT CPT-OV Office Visit 14:59:38 INSPECTION ENGINEER CPT-J1070 Depo Testosterone 100 mg 14:50:13 CDT 03/05 CPT-71376 Abx/Therapy Injection 14:50:13 CDT CPT-93820 Administration single or combination vac cine inc oral 14:34:43 CDT CPT-67024 Influenza split virus > age 3 14:34:43 CDT CPT-J1070 Depo Testosterone 100 mg 17:37:13 CDT 01/11 CPT-24065 Abx/Therapy Injection 17:37:13 CDT CPT-10774 Venipuncture Draw Fee 16:30:13 CDT CPT-55062 Venipuncture Draw Fee 16:29:43 CDT CPT-J1070 Depo Testosterone 100 mg 14:45:38 CDT 01/11
--- OUTSIDE RECORDS SUMMARY | 2019-10-27 13:04 | XMS REPORT | Clinical Summary ---
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 Benign neoplasm of colon PERIPHERAL NEUROPATHY [...] of unspecified type of vessel, [place] or graft OTH NONSPC ABN [...] tablet by mouth daily LE VOTHYROXINE SODIUM 70978030660 Active Carina Tucker LPN Active GLIPIZIDE 10 MG TAB take 2 tablets twice daily GLIPIZIDE 55929148338 Active Carina Tucker LPN Active SUCRALFATE 1 GM TABS 1 four times a day to coat the stomach 2015 SUCRALFATE 98187935976 No Longer Active Baltazar Childers MD Active PEN NEEDLES 31G X 6 MM MISC use 1 daily INSULIN PEN NEEDLE 08856927588 Active Bella Suarez SPRAYER OPERATOR Active TOURINKUO SOLOSTAR 300 UNIT/ML SC SOPN 10 units SC daily INSULIN GLARGINE 74357581998 No Longer Active Martita Godinez KENDALL Active LANTUS SOLOSTAR 100 UNIT/ML SC SOPN 10 units SC daily INSULIN GLARGINE 64128665522 Active Baltazar Childers MD Active NAPROXEN SODIUM 220 MG ORAL TABS 1 three times a day as needed 2 NAPROXEN SODIUM 89942466197 No Longer Active Baltazar Childers MD Active ATORVASTATIN CALCIUM 20 MG ORAL TABS Take 1 tab daily ATORVASTATIN CALCIUM 67522023422 Active Baltazar Childers MD Active FUROSEMIDE 40 MG TABS Take one by mouth daily FUROSEMIDE 20528826185 Active Baltazar Childers MD Active LISINOPRIL 20 MG TABS Take one by mouth daily at bedtime LISINOPRIL 87097410503 Active KENDALL Juarez Active ONETOUCH ULTRA BLUE STRP Test twice a day GLUCO SE BLOOD 04186357429 No Longer Active Baltazar Childers MD Active TRUEPLUS LANCETS 33G MISC Test twice a day LANCET S 26367008286 Active KENDALL Juarez Active TRUEDRAW LANCING DEVICE MISC Test twice a day L ANCET DEVICES 65232671457 Active Baltazar Childers MD Active TRUETRACK TEST STRP Test twice a day GLUCOSE BLOO D 38826578115 Active KENDALL Juarez Active TRUETRACK BLOOD GLUCOSE W/DEVICE KIT Test twice a day BLOOD GLUCOSE MONITORING SUPPL 09793710244 Active Baltazar Childers MD Activ e HYDROCODONE-ACETAMINOPHEN 7.5-325 MG TABS Take 1 tab every 6-8 hour s PRN HYDROCODONE-ACETAMINOPHEN 59144914411 Active Shonna Parker APRN Active NORTRIPTYLINE HCL 50 MG CAPS 1 every night for neuropathy 4 NORTRIPTYLINE HCL 97204846773 Active Baltazar Childers MD Acti ve GABAPENTIN 300 MG CAPS 1 three times a day GABAPE NTIN 29478691466 Active KENDALL Juarez Active GABAPENTIN 300 MG CAPS 1 po qd x 2 days, then 1 po BID x 2 d ays, then 1 po TID GABAPENTIN 69822591111 No Longer Active Baltazar silverman MD Active TRAMADOL HCL 50 MG TABS 1 twice a day as needed for pain TRAMADOL HCL 35328721767 Active Shonna Parker APRN Active NAPROXEN 500 MG TABS 1 tablet by mouth twice daily NAPROXEN 79183336782 No Longer Active Baltazar Childers MD Active PROAIR HFA 108 (90 BASE) MCG/ACT AERS 2 puffs four times a d ay as needed ALBUTEROL SULFATE 62633158578 Active KENDALL Juarez Active DEPO-TESTOSTERONE 200 MG/ML OIL as directed RUFINO TOSTERONE CYPIONATE 90786068942 No Longer Active Baltazar Childers MD Active LIPITOR 20 MG TABS Take one by mouth daily in evening ATORVASTATIN CALCIUM 67463739302 No Longer Active Baltazar Childers MD Activ e CRESTOR 10 MG TABS 1 by mouth every day R OSUVASTATIN CALCIUM 47427429931 No Longer Active Baltazar Childers MD Activ e PHENTERMINE HCL 37.5 MG TABS Take one by mouth daily 2 PHENTERMINE HCL 15179409845 No Longer Active Baltazar Childers MD Activ e ROBAXIN-750 750 MG TABS Take one by mouth daily ME THOCARBAMOL 18620048348 Active Baltazar Childers MD Active TIZANIDINE HCL 4 MG TABS 1 daily as needed for muscle spasm 2011 TIZANIDINE HCL 19961787229 No Longer Active Dawna Salazar RN Active GQYYOQVYSG-[id number] 50-325-40 MG TABS 1 four time s a day as needed for heacache [id number] 59824185430 Active Shonna Parker APRN Active SUMATRIPTAN SUCCINATE 100 MG TABS 1 tablet by mouth at onset of migraine as needed SUMATRIPTAN SUCCINATE 38010436564 Active Shonna Lucianodian er SPRAYER OPERATOR Active LORATADINE 10 MG TABS Take one by mouth daily LORATADINE 28394526797 Active Baltazar Childers MD Active OMEPRAZOLE 20 MG CPDR Take one by mouth daily OMEPRAZOLE 47512107951 Active KENDALL Juarez Active HYDROXYZINE HCL 25 MG TABS Take one by mouth daily HYDROXYZINE HCL 84920332197 Active Baltazar Childers MD Active ALPRAZOLAM 1 MG TABS 1 tablet by mouth daily at bedtime for restles s leg ALPRAZOLAM 22590550841 Active Baltazar Childers MD Active METFORMIN HCL 1000 MG TABS Take one by mouth twice daily METFORMIN HCL 71795849282 Active Baltazar Childers MD Active TIZANIDINE HCL 4 MG TABS 1 daily as needed for muscle spasm 2011 TIZANIDINE HCL 4 MG TABS 108084 TIZANIDINE HCL Inactiv e PHENTERMINE HCL 37.5 MG TABS Take one by mouth daily 2 PHENTERMINE HCL 37.5 MG TABS 571930 PHENTERMINE HCL Inactive CRESTOR 10 MG TABS 1 by mouth every day C RESTOR 10 MG TABS 674611 ROSUVASTATIN CALCIUM Inactive LIPITOR 20 MG TABS Take one by mouth daily in evening LIPITOR 20 MG TABS 612283 ATORVASTATIN CALCIUM Inactive DEPO-TESTOSTERONE 200 MG/ML OIL as directed 8 DEPO-TESTOSTERONE 200 MG/ML OIL 466594 TESTOSTERONE CYPIONATE Inactive NAPROXEN 500 MG TABS 1 tablet by mouth twice daily 201 07/27/22 NAPROXEN 500 MG TABS 344097 NAPROXEN Inactive GABAPENTIN 300 MG CAPS 1 po qd x 2 days, then 1 po BID x 2 d ays, then 1 po TID GABAPENTIN 300 MG CAPS 038874 GABAPENTIN Inact amie ONETOUCH ULTRA BLUE STRP Test twice a day ONETOUCH ULTRA BLUE STRP GLUCOSE BLOOD Inactive NAPROXEN SODIUM 220 MG ORAL TABS 1 three times a day as needed 2 NAPROXEN SODIUM 220 MG ORAL TABS 903744 NAPROXEN SODIUM Inactive TOUJEO SOLOSTAR 300 UNIT/ML SC SOPN 10 units SC daily TOUJEO SOLOSTAR 300 UNIT/ML SC SOPN INSULIN GLARGINE Inac tive SUCRALFATE 1 GM TABS 1 four times a day to coat the stomach 2015 SUCRALFATE 1 GM TABS 580005 SUCRALFATE Inactive Immunizations Vaccine Administration Date Value Standard Floyd cription pneumococcal immunization administered Pneumovax 23 [CVX33] pneumococcal polysaccharide vaccine, 23 valent Seasonal influenza vaccine, injectable, containing preservative, for > 3 years old (Afluria, FluLaval, Fluzone, Fluvirin, Fluarix, Agriflu(>= 18 yo)) Fluzone (>3 yrs.) [[id number]] Influenza, seasonal, inject able Seasonal influenza vaccine, injectable, containing preservative, for > 3 years old (Afluria, FluLaval, Fluzone, Fluvirin, Fluarix, Agriflu(>= 18 yo)) Fluzone (>3 yrs.) [[id number]] Influenza, seasonal, inject able Vital Signs Date [...] C - Chemistry sodium, serum 139 mmol/L 001-411 2545/07/07 potassium, serum 4.5 mmol/L 3.5-5.2 chloride, serum [...] Panel - Chemistry sodium, serum 143 mmol/L 845-675 1391/12/19 carbon dioxide, venous blood 32.5 mmol/L 21.0-32 .0 potassium, serum 4.9 mmol/L 3.5-5.2 chloride, serum 101 mmol/L 98-107 blood glucose 129 mg/dL 65-110 urea nitrogen, blood 18 mg/dL 7-18 creatinine, serum 1.79 mg/dL 0.55-1.30 alanine aminotransferase (SGPT), serum 34 U/L 12-78 aspartate aminotransferase (SGOT), serum 26 U/L 15-37 calcium, serum 8.9 mg/dL 8.5-10.1 bilirubin, serum, total 0.30 mg/dL 0.00-1.00 cholesterol, serum 214 mg/dL 746-129 5458/12/19 triglyceride, serum, fasting 351 mg/dL 30-200 HDL [...] Panel - Chemistry sodium, serum 141 mmol/L 341-706 1041/08/08 potassium, serum 4.9 mmol/L 3.5-5.2 chloride, serum 101 mmol/L 98-107 carbon dioxide, venous blood 34.1 mmol/L 21.0-32 .0 creatinine, serum 1.98 mg/dL 0.55-1.30 blood glucose 193 mg/dL 65-110 urea nitrogen, blood 30 mg/dL 7-18 calcium, serum 9.8 mg/dL 8.5-10.1 Encounters Code Encounter Date Provider Facility CPT-29242 Level 4 Est. Patient 15:44:38 CDT Shonna Parker APRN [facility] CPT-91779 Level 4 Est. Patient 11:34:17 CDT Baltazar Childers MD [facility] CPT-71084 Level 3 Est. Patient 16:40:40 CDT Baltazar Childers MD [facility] CPT-91541 Level 4 Est. Patient 10:41:24 CDT Baltazar Childers MD [facility]-68123 Level 4 Est. Patient 16:01:48 CDT Baltazar Childers MD [facility]-34217 Level 4 Est. Patient 16:54:07 CATALYTIC CASE OPERATOR Baltazar Childers MD [facility]-78249 Level 4 Est. Patient 15:42:12 CDT Baltazar Childers MD [facility] CPT-05681 Level 4 Est. Patient 11:29:55 CDT Baltazar Childers MD [facility]-03594 Level 4 Est. Patient 14:15:19 CDT Baltazar Childers MD [facility]-09833 Level 4 Est. Patient 12:20:13 CDT Baltazar Childers MD [facility]-97207 Level 4 Est. Patient 14:52:45 CATALYTIC CASE OPERATOR Baltazar Childers MD [facility] CPT-48543 Level 4 Est. Patient 14:18:34 CATALYTIC CASE OPERATOR Baltazar Childers MD [facility]-13870 Level 4 Est. Patient 15:18:29 CDT Baltazar Childers MD [facility] CPT-78285 Level 3 Est. Patient 12:45:34 CDT Baltazar Childers MD [facility] CPT-97782 Level 3 Est. Patient 10:10:11 CDT Baltazar Childers MD [facility] CPT-94367 Level 3 Est. Patient 14:07:50 CDT Baltazar Childers MD [facility]-14317 Level 4 Est. Patient 12:26:10 CATALYTIC CASE OPERATOR Baltazar Childers MD [facility]-06536 Level 4 Est. Patient 14:45:38 CDT Baltazar Childers MD [facility] CPT-49569 Level 4 New Patient 12:30:48 CDT Baltazar hinton MD [facility] Procedures Code Procedure Name Date Entry Date Standard Desc ription CPT-89494 Lipid - LAB USE ONLY 17:39:15 CATALYTIC CASE OPERATOR 9 CPT-22114 HGBA1C - LAB USE ONLY 17:39:15 CATALYTIC CASE OPERATOR CPT-32918 CMP - LAB USE ONLY 17:39:14 CATALYTIC CASE OPERATOR CPT-71238 Venipuncture Draw Fee 17:39:14 CATALYTIC CASE OPERATOR CPT-67812 First Vx - Ix admin via ID I M or jet injects without counseling by physician 16:55:17 CATALYTIC CASE OPERATOR CPT-71028 Fluzone Quadrivalent Intramuscular Suspe nsion 0.5 ML 16:55:17 CATALYTIC CASE OPERATOR CPT-95291 Renal Panel - LAB USE ONLY 17:39:20 CDT 201 10/31/07 CPT-49367 CBC - LAB USE ONLY 17:39:20 CDT CPT-47095 Venipuncture Draw Fee 17:39:20 CDT CPT-42457 Venipuncture Draw Fee 14:33:30 CDT CPT-70384 Renal Panel - LAB USE ONLY 14:33:30 CDT 201 10/31/07 CPT-35725 CBC - LAB USE ONLY 14:33:29 CDT CPT-14851 Venipuncture Draw Fee 14:50:21 CATALYTIC CASE OPERATOR CPT-94487 Immunization Single Admin 17:35:35 CDT 2014 CPT-85019 Fluzone Quadrivalent preservative free ( >=3yrs.) 17:35:35 CDT CPT-90359 Venipuncture Draw Fee 12:10:27 CATALYTIC CASE OPERATOR CPT-76288 Fluzone Quadrivalent Intramuscular Suspe nsion 0.5 ML 10:49:13 CDT CPT-59710 First Vx Component - Ix admi n via ID IM or jet inj without physician counseling 15:17:19 CATALYTIC CASE OPERATOR CPT-45145 Pneumovax 23 15:17:19 CATALYTIC CASE OPERATOR CPT-65734 Pneumovax 14:52:45 CATALYTIC CASE OPERATOR CPT-00355 Venipuncture Draw Fee 14:06:30 CATALYTIC CASE OPERATOR CPT-000 Give Appropriate Flu Vaccine 14:18:34 CATALYTIC CASE OPERATOR 2 CPT-36805 Administration single or combination vac cine inc oral 14:46:00 CATALYTIC CASE OPERATOR CPT-16456 Influenza split virus > age 3 14:46:00 CATALYTIC CASE OPERATOR CPT-OV Office Visit 19:13:16 CDT CPT-04696 Zostavax 18:41:56 CDT CPT-29275 Administration single or combination vac cine inc oral 12:56:39 CDT CPT-78425 Zoster Vaccine (Zostavax) 12:56:39 CDT 2012 CPT-35646 Venipuncture Draw Fee 10:58:57 CDT CPT-83369 Sono pelvis non OB uterus ovaries cervix 17:45:04 CDT CPT-92306 Sono retroperitoneal complete kidneys an d bladder 17:14:36 CDT CPT-OV Office Visit 14:59:38 CATALYTIC CASE OPERATOR CPT-J1070 Depo Testosterone 100 mg 14:50:13 CDT 03/05 CPT-52181 Abx/Therapy Injection 14:50:13 CDT CPT-27026 Administration single or combination vac cine inc oral 14:34:43 CDT CPT-11852 Influenza split virus > age 3 14:34:43 CDT CPT-J1070 Depo Testosterone 100 mg 17:37:13 CDT 01/11 CPT-81328 Abx/Therapy Injection 17:37:13 CDT CPT-07969 Venipuncture Draw Fee 16:30:13 CDT CPT-12408 Venipuncture Draw Fee 16:29:43 CDT CPT-J1070 Depo Testosterone 100 mg 14:45:38 CDT 01/11
--- OUTSIDE RECORDS SUMMARY | 2019-10-27 13:04 | XMS REPORT | Clinical Summary ---
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 Benign neoplasm of colon PERIPHERAL NEUROPATHY [...] ronary atherosclerosis of unspecified type of vessel, gambell or graft OTH NONSPC ABN FINDNG RAD&OTH [...] a day to coat the stomach SUCRALFATE 80971711217 Active Baltazar Childers MD Active PEN NEEDLES 31G X 6 MM MISC use 1 daily INSULIN PEN NEEDLE 05773354881 Active Bella Suarez ELECTRICAL ENGINEERING TECHNICIAN Active TOUJEO SOLOSTAR 300 UNIT/ML SC SOPN 10 units SC daily INSULIN GLARGINE 47315318850 No Longer Active Martita Godinez RMA Active LANTUS SOLOSTAR 100 UNIT/ML SC SOPN 10 units SC daily INSULIN GLARGINE 64164658692 Active KENDALL Juarez Active NAPROXEN SODIUM 220 MG ORAL TABS 1 three times a day as needed 2 NAPROXEN SODIUM 05044195270 No Longer Active Baltazar Childers MD Active ATORVASTATIN CALCIUM 20 MG ORAL TABS Take 1 tab daily ATORVASTATIN CALCIUM 33987216649 Active KENDALL Juarez Active FUROSEMIDE 40 MG TABS Take one by mouth daily FUROSEMIDE 44669448135 Active KENDALL Juarez Active LISINOPRIL 20 MG TABS Take one by mouth daily at bedtime LISINOPRIL 14946698338 Active Baltazar Childers MD Active ONETOUCH ULTRA BLUE STRP Test twice a day GLUCO SE BLOOD 81386781860 No Longer Active Baltazar Childers MD Active TRUEPLUS LANCETS 33G MISC Test twice a day LANCET S 27970188184 Active KENDALL Juarez Active TRUEDRAW LANCING DEVICE MISC Test twice a day L ANCET DEVICES 30924422599 Active Baltazar Childers MD Active TRUETRACK TEST STRP Test twice a day GLUCOSE BLOO D 04144226993 Active KENDALL Juarez Active TRUETRACK BLOOD GLUCOSE W/DEVICE KIT Test twice a day BLOOD GLUCOSE MONITORING SUPPL 31027774118 Active Baltazar Childers MD Activ e HYDROCODONE-ACETAMINOPHEN 7.5-325 MG TABS Take 1 tab every 6-8 hour s PRN HYDROCODONE-ACETAMINOPHEN 06071710543 Active Baltazar Childers MD Active NORTRIPTYLINE HCL 50 MG CAPS 1 every night for neuropathy 4 NORTRIPTYLINE HCL 62206555442 Active KENDALL Juarez Acti ve GABAPENTIN 300 MG CAPS 1 three times a day GABAPE NTIN 63205772185 Active Baltazar Childers MD Active GABAPENTIN 300 MG CAPS 1 po qd x 2 days, then 1 po BID x 2 d ays, then 1 po TID GABAPENTIN 92509243885 No Longer Active Baltazar silverman MD Active TRAMADOL HCL 50 MG TABS 1 twice a day as needed for pain TRAMADOL HCL 38662261685 Active Baltazar Childers MD Active NAPROXEN 500 MG TABS 1 tablet by mouth twice daily NAPROXEN 83927671575 No Longer Active Baltazar Childers MD Active PROAIR HFA 108 (90 BASE) MCG/ACT AERS 2 puffs four times a d ay as needed ALBUTEROL SULFATE 66502493115 Active KENDALL Juarez Active DEPO-TESTOSTERONE 200 MG/ML OIL as directed RUFINO TOSTERONE CYPIONATE 62841406617 No Longer Active Baltazar Childers MD Active LIPITOR 20 MG TABS Take one by mouth daily in evening ATORVASTATIN CALCIUM 27757721964 No Longer Active Baltazar Childers MD Activ e CRESTOR 10 MG TABS 1 by mouth every day R OSUVASTATIN CALCIUM 60367819479 No Longer Active Baltazar Childers MD Activ e PHENTERMINE HCL 37.5 MG TABS Take one by mouth daily 2 PHENTERMINE HCL 16792678468 No Longer Active Baltazar Childers MD Activ e ROBAXIN-750 750 MG TABS Take one by mouth daily ME THOCARBAMOL 86500612092 Active Baltazar Childers MD Active TIZANIDINE HCL 4 MG TABS 1 daily as needed for muscle spasm 2011 TIZANIDINE HCL 09170266708 No Longer Active Dawna Salazar RN Active [id number] 50-325-40 MG TABS 1 four time s a day as needed for heacache [id number] 41380119279 Active Baltazar Childers MD Active SUMATRIPTAN SUCCINATE 100 MG TABS 1 tablet by mouth at onset of migraine as needed SUMATRIPTAN SUCCINATE 88771046509 Active Bella STEPHEN RN Active LORATADINE 10 MG TABS Take one by mouth daily LORATADINE 13227044180 Active Baltazar Childers MD Active OMEPRAZOLE 20 MG CPDR Take one by mouth daily OMEPRAZOLE 12524186431 Active Argentina Lyons Active HYDROXYZINE HCL 25 MG TABS Take one by mouth daily HYDROXYZINE HCL 12909078421 Active Baltazar Childers MD Active GLIPIZIDE 10 MG TABS 1 tablet by mouth twice daily GLIPIZIDE 38893301116 Active KENDALL Juarez Active ALPRAZOLAM 1 MG TABS 1 tablet by mouth daily at bedtime for restles s leg ALPRAZOLAM 15854456429 Active Baltazar Childers MD Active METFORMIN HCL 1000 MG TABS Take one by mouth twice daily METFORMIN HCL 01426321032 Active Baltazar Childers MD Active TIZANIDINE HCL 4 MG TABS 1 daily as needed for muscle spasm 2011 TIZANIDINE HCL 4 MG TABS 124284 TIZANIDINE HCL Inactiv e PHENTERMINE HCL 37.5 MG TABS Take one by mouth daily 2 PHENTERMINE HCL 37.5 MG TABS 942547 PHENTERMINE HCL Inactive CRESTOR 10 MG TABS 1 by mouth every day C RESTOR 10 MG TABS 083123 ROSUVASTATIN CALCIUM Inactive LIPITOR 20 MG TABS Take one by mouth daily in evening LIPITOR 20 MG TABS 508161 ATORVASTATIN CALCIUM Inactive DEPO-TESTOSTERONE 200 MG/ML OIL as directed 8 DEPO-TESTOSTERONE 200 MG/ML OIL 857435 TESTOSTERONE CYPIONATE Inactive NAPROXEN 500 MG TABS 1 tablet by mouth twice daily 201 07/27/22 NAPROXEN 500 MG TABS 530309 NAPROXEN Inactive GABAPENTIN 300 MG CAPS 1 po qd x 2 days, then 1 po BID x 2 d ays, then 1 po TID GABAPENTIN 300 MG CAPS 120571 GABAPENTIN Inact amie ONETOUCH ULTRA BLUE STRP Test twice a day ONETOUCH ULTRA BLUE STRP GLUCOSE BLOOD Inactive NAPROXEN SODIUM 220 MG ORAL TABS 1 three times a day as needed 2 NAPROXEN SODIUM 220 MG ORAL TABS 562723 NAPROXEN SODIUM Inactive TOUJEO SOLOSTAR 300 UNIT/ML [...] Fluarix, Agriflu(>= 18 yo)) Fluzone (>3 yrs.) [[id number]] Influenza, seasonal, inject able Seasonal influenza vaccine, injectable, containing preservative, for > 3 years old (Afluria, FluLaval, Fluzone, Fluvirin, Fluarix, Agriflu(>= 18 yo)) Fluzone (>3 yrs.) [[id number]] Influenza, seasonal, inject able Vital Signs Date [...] pressure, diastolic - 8462-4 84 mm[Hg] BP aslmeron blood pressure, systolic - 8480-6 115 mm[Hg] BP sys pulse rate E&M - 8867-4 100 /min H eart rate temperature E&M 97.2 [degF] Body temp erature weight E&M - 3141-9 230 [lb_av] Weigh t Measured Diagnostic Results Date Name Value Unit Range Description Lab Report: Basic Metabolic Panel, HGBA1 C - Chemistry sodium, serum 139 mmol/L 324-157 0790/07/07 potassium, serum 4.5 mmol/L 3.5-5.2 chloride, serum [...] 7.9 % 4.3-6.0 sodium, serum 139 mmol/L 048-525 7989/02/04 potassium, serum 5.4 mmol/L 3.5-5.2 chloride, serum [...] Panel - Chemistry sodium, serum 141 mmol/L 489-275 1413/08/08 potassium, serum 4.9 mmol/L 3.5-5.2 chloride, serum [...] mg/dL Encounters Code Encounter Date Provider Facility CPT-74695 Level 4 Est. Patient 11:34:17 CDT Baltazar Childers MD [facility] CPT-70132 Level 3 Est. Patient 16:40:40 CDT Baltazar Childers MD [facility] CPT-39672 Level 4 Est. Patient 10:41:24 CDT Baltazar Childers MD [facility] CPT-27256 Level 4 Est. Patient 16:01:48 CDT Baltazar Childers MD [facility] CPT-63058 Level 4 Est. Patient 16:54:07 FUNDRAISING SALE REPRESENTATIVE Baltazar Childers MD [facility] CPT-46701 Level 4 Est. Patient 15:42:12 CDT Baltazar Childers MD [facility] CPT-72931 Level 4 Est. Patient 11:29:55 CDT Baltazar Childers MD [facility] CPT-50186 Level 4 Est. Patient 14:15:19 CDT Baltazar Childers MD [facility] CPT-17817 Level 4 Est. Patient 12:20:13 CDT Baltazar Childers MD [facility] CPT-96472 Level 4 Est. Patient 14:52:45 FUNDRAISING SALE REPRESENTATIVE Baltazar Childers MD [facility] CPT-22271 Level 4 Est. Patient 14:18:34 FUNDRAISING SALE REPRESENTATIVE Baltazar Childers MD [facility] CPT-96341 Level 4 Est. Patient 15:18:29 CDT Baltazar Childers MD [facility] CPT-73601 Level 3 Est. Patient 12:45:34 CDT Baltazar Childers MD [facility] CPT-70098 Level 3 Est. Patient 10:10:11 CDT Baltazar Childers MD [facility] CPT-69897 Level 3 Est. Patient 14:07:50 CDT Baltazar Childers MD [facility] CPT-18223 Level 4 Est. Patient 12:26:10 FUNDRAISING SALE REPRESENTATIVE Baltazar Childers MD [facility] CPT-42484 Level 4 Est. Patient 14:45:38 CDT Baltazar Childers MD [facility] CPT-19966 Level 4 New Patient 12:30:48 CDT Baltazar hinton MD [facility] Procedures Code Procedure Name Date Entry Date Standard Desc ription CPT-01964 Renal Panel - LAB USE ONLY 17:39:20 CDT 201 10/31/07 CPT-09043 CBC - LAB USE ONLY 17:39:20 CDT CPT-67306 Venipuncture Draw Fee 17:39:20 CDT CPT-05736 Venipuncture Draw Fee 14:33:30 CDT CPT-13932 Renal Panel - LAB USE ONLY 14:33:30 CDT 201 10/31/07 CPT-22169 CBC - LAB USE ONLY 14:33:29 CDT CPT-01466 Venipuncture Draw Fee 14:50:21 FUNDRAISING SALE REPRESENTATIVE CPT-01670 Immunization Single Admin 17:35:35 CDT 2014 CPT-86751 Fluzone Quadrivalent preservative free ( >=3yrs.) 17:35:35 CDT CPT-78524 Venipuncture Draw Fee 12:10:27 FUNDRAISING SALE REPRESENTATIVE CPT-26860 Fluzone Quadrivalent Intramuscular Suspe nsion 0.5 ML 10:49:13 CDT CPT-89984 First Vx Component - Ix admi n via ID IM or jet inj without physician counseling 15:17:19 FUNDRAISING SALE REPRESENTATIVE CPT-19545 Pneumovax 15:17:19 FUNDRAISING SALE REPRESENTATIVE CPT-96564 Pneumovax 14:52:45 FUNDRAISING SALE REPRESENTATIVE CPT-68216 Venipuncture Draw Fee 14:06:30 FUNDRAISING SALE REPRESENTATIVE CPT-000 Give Appropriate Flu Vaccine 14:18:34 FUNDRAISING SALE REPRESENTATIVE 2 CPT-65297 Administration single or combination vac cine inc oral 14:46:00 FUNDRAISING SALE REPRESENTATIVE CPT-53884 Influenza split virus > age 3 14:46:00 FUNDRAISING SALE REPRESENTATIVE CPT-OV Office Visit 19:13:16 CDT CPT-41937 Zostavax 18:41:56 CDT CPT-66165 Administration single or combination vac cine inc oral 12:56:39 CDT CPT-33027 Zoster Vaccine (Zostavax) 12:56:39 CDT 2012 CPT-11159 Venipuncture Draw Fee 10:58:57 CDT CPT-13982 Sono pelvis non OB uterus ovaries cervix 17:45:04 CDT CPT-02650 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
--- OUTSIDE RECORDS SUMMARY | 2019-10-27 13:05 | XMS REPORT | Clinical Summary ---
Author Author Admin, Elba Lance Michelle [facility] Address Unknown Phone Unavailable Allergies, 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 POST DOC FELLOWSHIP Benign neoplasm of colon PERIPHERAL NEUROPATHY 356.9 [...] day to coat the stomach 2015 SUCRALFATE [id number] No Longer Active Baltazar Childers MD Active PEN NEEDLES 31G X 6 MM MISC use 1 daily INSULIN PEN NEEDLE 56311236085 Active Bella Suarez POST DOC FELLOWSHIP Active TOUJEO SOLOSTAR 300 UNIT/ML SC SOPN 10 units SC daily INSULIN GLARGINE 65091965601 No Longer Active Martita Godinez RMA Active LANTUS SOLOSTAR 100 UNIT/ML SC SOPN 10 units SC daily INSULIN GLARGINE 97522050191 Active Baltazar Childers MD Active NAPROXEN SODIUM 220 MG ORAL TABS 1 three times a day as needed 2 NAPROXEN SODIUM 63931813379 No Longer Active Baltazar Childers MD Active ATORVASTATIN CALCIUM 20 MG ORAL TABS Take 1 tab daily ATORVASTATIN CALCIUM 84007525232 Active Baltazar Childers MD Active FUROSEMIDE 40 MG TABS Take one by mouth daily FUROSEMIDE 54438942549 Active Baltazar Childers MD Active LISINOPRIL 20 MG TABS Take one by mouth daily at bedtime LISINOPRIL 18773327335 Active Baltazar Childers MD Active ONETOUCH ULTRA BLUE STRP Test twice a day GLUCO SE BLOOD 26265353690 No Longer Active Baltazar Childers MD Active TRUEPLUS LANCETS 33G MISC Test twice a day LANCET S 97694429192 Active KENDALL Juarez Active TRUEDRAW LANCING DEVICE MISC Test twice a day L ANCET DEVICES 70622715840 Active Baltazar Childers MD Active TRUETRACK TEST STRP Test twice a day GLUCOSE BLOO D 33212886985 Active KENDALL Juarez Active TRUETRACK BLOOD GLUCOSE W/DEVICE KIT Test twice a day BLOOD GLUCOSE MONITORING SUPPL 38732066627 Active Baltazar Childers MD Activ e HYDROCODONE-ACETAMINOPHEN 7.5-325 MG TABS Take 1 tab every 6-8 hour s PRN HYDROCODONE-ACETAMINOPHEN 22374138930 Active Baltazar Childers MD Active NORTRIPTYLINE HCL 50 MG CAPS 1 every night for neuropathy 4 NORTRIPTYLINE HCL 57546418662 Active Baltazar Childers MD Acti ve GABAPENTIN 300 MG CAPS 1 three times a day GABAPE NTIN 01171958389 Active Baltazar Childers MD Active GABAPENTIN 300 MG CAPS 1 po qd x 2 days, then 1 po BID x 2 d ays, then 1 po TID GABAPENTIN 69969835143 No Longer Active Baltazar silverman MD Active TRAMADOL HCL 50 MG TABS 1 twice a day as needed for pain TRAMADOL HCL 10435552154 Active Baltazar Childers MD Active NAPROXEN 500 MG TABS 1 tablet by mouth twice daily NAPROXEN 23495231671 No Longer Active Baltazar Childers MD Active PROAIR HFA 108 (90 BASE) MCG/ACT AERS 2 puffs four times a d ay as needed ALBUTEROL SULFATE 70552687201 Active KENDALL Juarez Active DEPO-TESTOSTERONE 200 MG/ML OIL as directed RUFINO TOSTERONE CYPIONATE 75432803316 No Longer Active Baltazar Childers MD Active LIPITOR 20 MG TABS Take one by mouth daily in evening ATORVASTATIN CALCIUM 95350303276 No Longer Active Baltazar Childers MD Activ e CRESTOR 10 MG TABS 1 by mouth every day R OSUVASTATIN CALCIUM 03666875538 No Longer Active Baltazar Childers MD Activ e PHENTERMINE HCL 37.5 MG TABS Take one by mouth daily 2 PHENTERMINE HCL 44107728325 No Longer Active Baltazar Childers MD Activ e ROBAXIN-750 750 MG TABS Take one by mouth daily ME THOCARBAMOL 85579269469 Active Baltazar Childers MD Active TIZANIDINE HCL 4 MG TABS 1 daily as needed for muscle spasm 2011 TIZANIDINE HCL 45689854103 No Longer Active Dawna Salazar RN Active [id number] 50-325-40 MG TABS 1 four time s a day as needed for heacache [id number] 07917461483 Active Baltazar Childers MD Active SUMATRIPTAN SUCCINATE 100 MG TABS 1 tablet by mouth at onset of migraine as needed SUMATRIPTAN SUCCINATE 57964083672 Active Baltazar bynum MD Active LORATADINE 10 MG TABS Take one by mouth daily LORATADINE 00523173362 Active Baltazar Childers MD Active OMEPRAZOLE 20 MG CPDR Take one by mouth daily OMEPRAZOLE 06882712966 Active Baltazar Childers MD Active HYDROXYZINE HCL 25 MG TABS Take one by mouth daily HYDROXYZINE HCL 43545092511 Active Baltazar Childers MD Active GLIPIZIDE 10 MG TABS 1 tablet by mouth twice daily GLIPIZIDE 75796106192 Active Baltazar Childers MD Active ALPRAZOLAM 1 MG TABS 1 tablet by mouth daily at bedtime for restles s leg ALPRAZOLAM 10969759446 Active Baltazar Childers MD Active METFORMIN HCL 1000 MG TABS Take one by mouth twice daily METFORMIN HCL 68894667617 Active Baltazar Childers MD Active TIZANIDINE HCL 4 MG TABS 1 daily as needed for muscle spasm 2011 TIZANIDINE HCL 4 MG TABS 728259 TIZANIDINE HCL Inactiv e PHENTERMINE HCL 37.5 MG TABS Take one by mouth daily 2 PHENTERMINE HCL 37.5 MG TABS 365553 PHENTERMINE HCL Inactive CRESTOR 10 MG TABS 1 by mouth every day C RESTOR 10 MG TABS 066352 ROSUVASTATIN CALCIUM Inactive LIPITOR 20 MG TABS Take one by mouth daily in evening LIPITOR 20 MG TABS 602404 ATORVASTATIN CALCIUM Inactive DEPO-TESTOSTERONE 200 MG/ML OIL as directed 8 DEPO-TESTOSTERONE 200 MG/ML OIL 693022 TESTOSTERONE CYPIONATE Inactive NAPROXEN 500 MG TABS 1 tablet by mouth twice daily 201 07/27/22 NAPROXEN 500 MG TABS 656469 NAPROXEN Inactive GABAPENTIN 300 MG CAPS 1 po qd x 2 days, then 1 po BID x 2 d ays, then 1 po TID GABAPENTIN 300 MG CAPS 291154 GABAPENTIN Inact amie ONETOUCH ULTRA BLUE STRP Test twice a day ONETOUCH ULTRA BLUE STRP GLUCOSE BLOOD Inactive NAPROXEN SODIUM 220 MG ORAL TABS 1 three times a day as needed 2 NAPROXEN SODIUM 220 MG ORAL TABS 174746 NAPROXEN SODIUM Inactive TOUJEO SOLOSTAR 300 UNIT/ML SC SOPN 10 units SC daily TOUJEO SOLOSTAR 300 UNIT/ML SC SOPN INSULIN GLARGINE Inac tive SUCRALFATE 1 GM TABS 1 four times a day to coat the stomach 2015 SUCRALFATE 1 GM TABS 801711 SUCRALFATE Inactive Immunizations Vaccine Administration Date Value Standard Floyd cription pneumococcal immunization administered Pneumovax 23 [CVX33] pneumococcal polysaccharide vaccine, 23 valent Seasonal influenza vaccine, injectable, containing preservative, for > 3 years old (Afluria, FluLaval, Fluzone, Fluvirin, Fluarix, Agriflu(>= 18 yo)) Fluzone (>3 yrs.) [SDI879] Influenza, seasonal, inject able Seasonal influenza vaccine, injectable, containing preservative, for > 3 years old (Afluria, FluLaval, Fluzone, Fluvirin, Fluarix, Agriflu(>= 18 yo)) Fluzone (>3 yrs.) [LPD079] Influenza, seasonal, inject able Vital Signs Date [...] C - Chemistry sodium, serum 139 mmol/L 449-762 4301/07/07 potassium, serum 4.5 mmol/L 3.5-5.2 chloride, serum [...] 4.04-5.4 8 hemoglobin, blood 12.2 g/dL 12.0-16.0 mean corpuscular volume, RBC 97 fL 80-97 mean corpuscular hemoglobin, RBC 32.5 pg 27. 0-31.2 mean corpuscular hemoglobin concentration, RBC 33.4 G/DL % 31.8-35.4 red blood cell distribution width 16.2 % 11 .6-14.8 platelet count 345 10^3/MM^3 10*3/mm3 093-942 2309/08/08 hematocrit, blood 36.5 % 36.0-46.0 Lab Report: CBC, HGBA1C, Renal Panel - C hemistry hemoglobin A1C, blood, as % of total hemoglobin 7.9 % 4.3-6.0 sodium, serum 139 mmol/L 231-319 0728/02/04 potassium, serum 5.4 mmol/L 3.5-5.2 chloride, serum [...] 4.3-6.0 Lab Report: Renal Panel - Chemistry potassium, serum 4.9 mmol/L 3.5-5.2 sodium, serum 141 mmol/L 736-524 3625/08/08 chloride, serum 101 mmol/L 98-107 carbon dioxide, venous blood 34.1 mmol/L 21.0-32 .0 creatinine, serum 1.98 mg/dL 0.55-1.30 calcium, serum 9.8 mg/dL 8.5-10.1 urea nitrogen, blood 30 mg/dL 7-18 blood glucose 193 mg/dL 65-110 Office Visit: Medication refill - Basic LDL target level 70 mg/dL Office Visit: Medication refill - Chemis try HDL cholesterol, serum, target level 40 mg/dL triglyceride, target level 150 mg/dL cholesterol, target level 200 mg/dL Encounters Code Encounter Date Provider Facility CPT-68984 Level 4 Est. Patient 11:34:17 CDT Baltazar Childers MD [facility]-46070 Level 3 Est. Patient 16:40:40 CDT Baltazar Childers MD [facility] CPT-32082 Level 4 Est. Patient 10:41:24 CDT Baltazar Childers MD [facility]-17972 Level 4 Est. Patient 16:01:48 CDT Baltazar Childers MD [facility] CPT-62772 Level 4 Est. Patient 16:54:07 PRODUCTION LINE ASSEMBLER Baltazar Childers MD [facility]-58327 Level 4 Est. Patient 15:42:12 CDT Baltazar Childers MD [facility] CPT-93646 Level 4 Est. Patient 11:29:55 CDT Baltazar Childers MD [facility] CPT-26525 Level 4 Est. Patient 14:15:19 CDT Baltazar Childers MD [facility] CPT-47341 Level 4 Est. Patient 12:20:13 CDT Baltazar Childers MD [facility] CPT-10040 Level 4 Est. Patient 14:52:45 PRODUCTION LINE ASSEMBLER Baltazar Childers MD [facility]-91181 Level 4 Est. Patient 14:18:34 PRODUCTION LINE ASSEMBLER Baltazar Childers MD [facility] CPT-87153 Level 4 Est. Patient 15:18:29 CDT Baltazar Childers MD [facility] CPT-89487 Level 3 Est. Patient 12:45:34 CDT Baltazar Childers MD [facility] CPT-56382 Level 3 Est. Patient 10:10:11 CDT Baltzaar Childers MD [facility]-24263 Level 3 Est. Patient 14:07:50 CDT Baltazar Childers MD [facility] CPT-89321 Level 4 Est. Patient 12:26:10 PRODUCTION LINE ASSEMBLER Baltazar Childers MD [facility] CPT-49871 Level 4 Est. Patient 14:45:38 CDT Baltazar Childers MD [facility] CPT-12281 Level 4 New Patient 12:30:48 CDT Baltazar hinton MD [facility] Procedures Code Procedure Name Date Entry Date Standard Desc ription CPT-98147 Lipid - LAB USE ONLY 17:39:15 PRODUCTION LINE ASSEMBLER 9 CPT-92998 HGBA1C - LAB USE ONLY 17:39:15 PRODUCTION LINE ASSEMBLER CPT-49336 CMP - LAB USE ONLY 17:39:14 PRODUCTION LINE ASSEMBLER CPT-26662 Venipuncture Draw Fee 17:39:14 PRODUCTION LINE ASSEMBLER CPT-99394 First Vx - Ix admin via ID I M or jet injects without counseling by physician 16:55:17 PRODUCTION LINE ASSEMBLER CPT-59783 Fluzone Quadrivalent Intramuscular Suspe nsion 0.5 ML 16:55:17 PRODUCTION LINE ASSEMBLER CPT-20942 Renal Panel - LAB USE ONLY 17:39:20 CDT 201 10/31/07 CPT-35629 CBC - LAB USE ONLY 17:39:20 CDT CPT-54151 Venipuncture Draw Fee 17:39:20 CDT CPT-82729 Venipuncture Draw Fee 14:33:30 CDT CPT-67969 Renal Panel - LAB USE ONLY 14:33:30 CDT 201 10/31/07 CPT-31139 CBC - LAB USE ONLY 14:33:29 CDT CPT-67845 Venipuncture Draw Fee 14:50:21 PRODUCTION LINE ASSEMBLER CPT-13409 Immunization Single Admin 17:35:35 CDT 2014 CPT-98896 Fluzone Quadrivalent preservative free ( >=3yrs.) 17:35:35 CDT CPT-13989 Venipuncture Draw Fee 12:10:27 PRODUCTION LINE ASSEMBLER CPT-81179 Fluzone Quadrivalent Intramuscular Suspe nsion 0.5 ML 10:49:13 CDT CPT-62554 First Vx Component - Ix admi n via ID IM or jet inj without physician counseling 15:17:19 PRODUCTION LINE ASSEMBLER CPT-56732 Pneumovax 23 15:17:19 PRODUCTION LINE ASSEMBLER CPT-26150 Pneumovax 14:52:45 PRODUCTION LINE ASSEMBLER CPT-05837 Venipuncture Draw Fee 14:06:30 PRODUCTION LINE ASSEMBLER CPT-000 Give Appropriate Flu Vaccine 14:18:34 PRODUCTION LINE ASSEMBLER 2 CPT-02545 Administration single or combination vac cine inc oral 14:46:00 PRODUCTION LINE ASSEMBLER CPT-53705 Influenza split virus > age 3 14:46:00 PRODUCTION LINE ASSEMBLER CPT-OV Office Visit 19:13:16 CDT CPT-73378 Zostavax 18:41:56 CDT CPT-88539 Administration single or combination vac cine inc oral 12:56:39 CDT CPT-36817 Zoster Vaccine (Zostavax) 12:56:39 CDT 2012 CPT-44293 Venipuncture Draw Fee 10:58:57 CDT CPT-06313 Sono pelvis non OB uterus ovaries cervix 17:45:04 CDT CPT-37250 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
--- OUTSIDE RECORDS SUMMARY | 2019-10-27 13:05 | XMS REPORT | Clinical Summary ---
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 Benign neoplasm of colon PERIPHERAL NEUROPATHY [...] y atherosclerosis of unspecified type of vessel, soboba or graft OTH NONSPC ABN FINDNG RAD&OTH [...] MISC Test twice a day LANCET S 68376648911 Active Baltazar Childers MD Active TRUEDRAW LANCING DEVICE MISC Test twice a day L ANCET DEVICES 48040912377 Active Baltazar Childers MD Active TRUETRACK TEST STRP Test twice a day GLUCOSE BLOO D 92939466371 Active Baltazar Childers MD Active TRUETRACK BLOOD GLUCOSE W/DEVICE KIT Test twice a day BLOOD GLUCOSE MONITORING SUPPL 16135463432 Active Bella Suarez SONOGRAM TECHNICIAN Active HYDROCODONE-ACETAMINOPHEN 7.5-325 MG TABS Take 1 tab every 6-8 hour s PRN HYDROCODONE-ACETAMINOPHEN 24387964450 Active Baltazar Childers MD Active NORTRIPTYLINE HCL 50 MG CAPS 1 every night for neuropathy 4 NORTRIPTYLINE HCL 92648576397 Active Baltazar Childers MD Acti ve GABAPENTIN 300 MG CAPS 1 three times a day GABAPE NTIN 59602100207 Active aBltazar Childers MD Active GABAPENTIN 300 MG CAPS 1 po qd x 2 days, then 1 po BID x 2 d ays, then 1 po TID GABAPENTIN 10404909889 No Longer Active Baltazar silverman MD Active TRAMADOL HCL 50 MG TABS 1 twice a day as needed for pain TRAMADOL HCL 95671217080 Active Baltazar Childers MD Active NAPROXEN 500 MG TABS 1 tablet by mouth twice daily NAPROXEN 88871741380 No Longer Active Baltazar Childers MD Active PROAIR HFA 108 (90 BASE) MCG/ACT AERS 2 puffs four times a d ay as needed ALBUTEROL SULFATE 43244788732 Active Baltazar Childers MD Active DEPO-TESTOSTERONE 200 MG/ML OIL as directed RUFINO TOSTERONE CYPIONATE 30699975585 No Longer Active Baltazar Childers MD Active LIPITOR 20 MG TABS Take one by mouth daily in evening ATORVASTATIN CALCIUM 51664044938 No Longer Active Baltazar Childers MD Activ e CRESTOR 10 MG TABS 1 by mouth every day R OSUVASTATIN CALCIUM 25770056289 No Longer Active Baltazar Childers MD Activ e PHENTERMINE HCL 37.5 MG TABS Take one by mouth daily 2 PHENTERMINE HCL 63145260550 No Longer Active Baltazar Childers MD Activ e ROBAXIN-750 750 MG TABS Take one by mouth daily ME THOCARBAMOL 33989792220 Active Baltazar Childers MD Active TIZANIDINE HCL 4 MG TABS 1 daily as needed for muscle spasm 2011 TIZANIDINE HCL 35496460579 No Longer Active Dawna Salazar RN Active PagosOnLineUCH ULTRA BLUE STRP Test twice a day GLUCO SE BLOOD 60393165199 Active Baltazar Childers MD Active [id number]-[id number] 50-325-40 MG TABS 1 four time s a day as needed for heacache [id number] 64776413788 Active Baltazar Childers MD Active SUMATRIPTAN SUCCINATE 100 MG TABS 1 tablet by mouth at onset of migraine as needed SUMATRIPTAN SUCCINATE 00372131425 Active Baltazar barron MD Active LORATADINE 10 MG TABS Take one by mouth daily LORATADINE 91396415069 Active Baltazar Childers MD Active FUROSEMIDE 40 MG TABS Take one by mouth daily FUROSEMIDE 53034599445 Active Baltazar Childers MD Active LISINOPRIL 20 MG TABS Take one by mouth daily at bedtime LISINOPRIL 92559855759 Active Baltazar Childers MD Active OMEPRAZOLE 20 MG CPDR Take one by mouth daily OMEPRAZOLE 78873046243 Active Baltazar Childers MD Active HYDROXYZINE HCL 25 MG TABS Take one by mouth daily HYDROXYZINE HCL 37484790898 Active Baltazar Childers MD Active GLIPIZIDE 10 MG TABS 1 tablet by mouth twice daily GLIPIZIDE 45172536575 Active Baltazar Childers MD Active ALPRAZOLAM 1 MG TABS 1 tablet by mouth daily at bedtime for restles s leg ALPRAZOLAM 96134888032 Active Baltazar Childers MD Active METFORMIN HCL 1000 MG TABS Take one by mouth twice daily METFORMIN HCL 12441369173 Active Baltazar Childers MD Active TIZANIDINE HCL 4 MG TABS 1 daily as needed for muscle spasm 2011 TIZANIDINE HCL 4 MG TABS 649556 TIZANIDINE HCL Inactiv e PHENTERMINE HCL 37.5 MG TABS Take one by mouth daily 2 PHENTERMINE HCL 37.5 MG TABS 234425 PHENTERMINE HCL Inactive CRESTOR 10 MG TABS 1 by mouth every day C RESTOR 10 MG TABS ROSUVASTATIN CALCIUM Inactive LIPITOR 20 MG TABS Take one by mouth daily in evening LIPITOR 20 MG TABS 665132 ATORVASTATIN CALCIUM Inactive DEPO-TESTOSTERONE 200 MG/ML OIL as directed 8 DEPO-TESTOSTERONE 200 MG/ML OIL 535135 TESTOSTERONE CYPIONATE Inactive NAPROXEN 500 MG TABS 1 tablet by mouth twice daily 201 07/27/22 NAPROXEN 500 MG TABS 598383 NAPROXEN Inactive GABAPENTIN 300 MG CAPS 1 po qd x 2 days, then 1 po BID x 2 d ays, then 1 po TID GABAPENTIN 300 MG CAPS 047143 GABAPENTIN Inact amie Immunizations Vaccine Administration Date Value Standard Floyd cription pneumococcal immunization administered Pneumovax 23 [CVX33] pneumococcal polysaccharide vaccine, 23 valent Seasonal influenza vaccine, injectable, containing preservative, for > 3 years old (Afluria, FluLaval, Fluzone, Fluvirin, Fluarix, Agriflu(>= 18 yo)) Fluzone (>3 yrs.) [[id number]] Influenza, seasonal, inject able Seasonal influenza vaccine, injectable, containing preservative, for > 3 years old (Afluria, FluLaval, Fluzone, Fluvirin, Fluarix, Agriflu(>= 18 yo)) Fluzone (>3 yrs.) [[id number]] Influenza, seasonal, inject able Vital Signs Date [...] Range Description Lab Report: CBC - Hematology mean corpuscular volume, RBC 96 fL 80-97 hematocrit, blood 35.1 % 36.0-46.0 hemoglobin, blood 11.6 g/dL 12.0-16.0 mean corpuscular hemoglobin, RBC 31.7 pg 27. 0-31.2 mean corpuscular hemoglobin concentration, RBC 33.0 G/DL % 31.8-35.4 red blood cell distribution width 14.4 % 11 .6-14.8 platelet count 273 10^3/MM^3 10*3/mm3 589-603 1563/08/21 erythrocyte (RBC) count 3.65 10^6/MM^3 10*6/mm3 4.04-5.4 8 leukocyte count, blood 4.9 10^3/MM^3 10*3/mm3 4.6-10.2 Lab Report: CBC, Renal Panel - Chemistry sodium, serum 139 mmol/L 143-033 4693/01/20 potassium, serum 5.3 mmol/L 3.5-5.2 chloride, serum 99 mmol/L 98-107 carbon dioxide, venous blood 32.0 mmol/L 21.0-32 .0 blood glucose 200 mg/dL 65-110 urea nitrogen, blood 19 mg/dL 7-18 creatinine, serum 1.60 mg/dL 0.60-1.30 calcium, serum 9.5 mg/dL 8.5-10.1 Lab Report: CBC, Renal Panel - Hematolog y hematocrit, blood 35.6 % 36.0-46.0 mean corpuscular volume, RBC 96 fL 80-97 mean corpuscular hemoglobin, RBC 32.0 pg 27. 0-31.2 mean corpuscular hemoglobin concentration, RBC 33.3 G/DL % 31.8-35.4 red blood cell distribution width 14.9 % 11 .6-14.8 platelet count 262 10^3/MM^3 10*3/mm3 222-123 7198/01/20 leukocyte count, blood 4.7 10^3/MM^3 10*3/mm3 4.6-10.2 erythrocyte (RBC) count 3.70 10^6/MM^3 10*6/mm3 4.04-5.4 8 hemoglobin, blood 11.9 g/dL 12.0-16.0 Lab Report: MICROALBUMIN, Lipid Panel, H GBA1C, Comp. Metabolic Panel - Chemistry albumin/creatinine ratio, urine 30 - 300 mg/g mg/g{creat} 0-29 cholesterol, serum 319 mg/dL 822-551 5781/08/21 triglyceride, serum, fasting 546 mg/dL 30-200 HDL cholesterol, serum 39 mg/dL 32-96 LDL cholesterol, serum 167.00 mg/dL 5.00-130.00 hemoglobin A1C, blood, as % of total hemoglobin 7.7 % 4.3-6.0 sodium, serum 138 mmol/L 099-532 9474/08/21 potassium, serum 4.3 mmol/L 3.5-5.2 chloride, serum [...] 0-19 Encounters Code Encounter Date Provider Facility CPT-12068 Level 4 Est. Patient 14:15:19 CDT Baltazar Childers MD [facility] CPT-36588 Level 4 Est. Patient 12:20:13 CDT Baltazar Childers MD [facility] CPT-91091 Level 4 Est. Patient 14:52:45 SWATCH PASTER Baltazar Childers MD [facility] CPT-92869 Level 4 Est. Patient 14:18:34 SWATCH PASTER Baltazar Childers MD [facility] CPT-77232 Level 4 Est. Patient 15:18:29 CDT Baltazar Childers MD [facility] CPT-54916 Level 3 Est. Patient 12:45:34 CDT Baltazar Childers MD [facility] CPT-59723 Level 3 Est. Patient 10:10:11 CDT Baltazar Childers MD [facility] CPT-88048 Level 3 Est. Patient 14:07:50 CDT Baltazar Childers MD [facility] CPT-82707 Level 4 Est. Patient 12:26:10 SWATCH PASTER Baltazar Childers MD [facility] CPT-10304 Level 4 Est. Patient 14:45:38 CDT Baltazar Childers MD [facility] CPT-56593 Level 4 New Patient 12:30:48 CDT Baltazar hinton MD [facility] Procedures Code Procedure Name Date Entry Date Standard Desc ription CPT-93953 Venipuncture Draw Fee 12:10:27 SWATCH PASTER CPT-75729 Fluzone Quadrivalent Intramuscular Suspe nsion 0.5 ML 10:49:13 CDT CPT-50761 First Vx Component - Ix admi n via ID IM or jet inj without physician counseling 15:17:19 SWATCH PASTER CPT-46120 Pneumovax 23 15:17:19 SWATCH PASTER CPT-66537 Pneumovax 14:52:45 SWATCH PASTER CPT-29771 Venipuncture Draw Fee 14:06:30 SWATCH PASTER CPT-000 Give Appropriate Flu Vaccine 14:18:34 SWATCH PASTER 2 CPT-42440 Administration single or combination vac cine inc oral 14:46:00 SWATCH PASTER CPT-20068 Influenza split virus > age 3 14:46:00 SWATCH PASTER CPT-OV Office Visit 19:13:16 CDT CPT-96184 Zostavax 18:41:56 CDT CPT-20095 Administration single or combination vac cine inc oral 12:56:39 CDT CPT-06893 Zoster Vaccine (Zostavax) 12:56:39 CDT 2012 CPT-16617 Venipuncture Draw Fee 10:58:57 CDT CPT-19588 Sono pelvis non OB uterus ovaries cervix 17:45:04 CDT CPT-60890 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
--- OUTSIDE RECORDS SUMMARY | 2019-10-27 13:05 | XMS REPORT | Clinical Summary ---
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[employer] Benign neoplasm of colon PERIPHERAL NEUROPATHY 356.9 [...] three times a day 201 12/03/26 GABAPENTIN 47376483584 No Longer Active Baltazar Childers MD Activ e LISINOPRIL 20 MG ORAL TABLET 1 tablet by mouth daily at night 2016 LISINOPRIL 70863701904 Active Baltazar Childers MD Active ZITHROMAX Z-ISAIAS 250 MG ORAL TABLET Take two tablets to day and then 1 tablet daily for 4 days AZITHROMYCIN 18771222232 No Longer A ctive Baltazar Childers MD Active LANTUS SOLOSTAR 100 UNIT/ML SUBCUTANEOUS SOLUTION PEN- INJECTOR 30 units SC daily INSULIN GLARGINE 13032617441 Active Baltazar Childers MD Active AMLODIPINE BESYLATE 5 MG ORAL TABLET 1 tab daily for HTN AMLODIPINE BESYLATE 97924521384 Active Baltazar Childers MD Active SYNTHROID 100 MCG ORAL TABLET 1 tablet by mouth daily LEVOTHYROXINE SODIUM 62526166766 Active Baltazar Childers MD Active GLIPIZIDE 10 MG ORAL TABLET take 2 tablets twice daily GLIPIZIDE 30788268906 Active Baltazar Childers MD Active SUCRALFATE 1 GM ORAL TABLET 1 four times a day to coat the stoma ch SUCRALFATE 24022665092 No Longer Active Baltazar Childers MD Active PEN NEEDLES 31G X 6 MM use 1 daily INSULIN PEN NE EDLE 88442062352 Active KENDALL Juarez Active CELINA POWERSOSTNAKITA 300 UNIT/ML SUBCUTANEOUS SOLUTION PEN- INJECTOR 10 units SC daily INSULIN GLARGINE 58408256824 No Longer Active Rola Godinez RMA Active NAPROXEN SODIUM 220 MG ORAL TABLET 1 three times a day as needed NAPROXEN SODIUM 44374056566 No Longer Active Baltazar Childers MD Active ATORVASTATIN CALCIUM 20 MG ORAL TABLET Take 1 tab daily ATORVASTATIN CALCIUM 97876115582 Active Baltazar Childers MD A ctive FUROSEMIDE 40 MG ORAL TABLET Take one by mouth daily FUROSEMIDE 55599141343 Active Jessy Arellano LPN Active LISINOPRIL 20 MG ORAL TABLET Take one by mouth daily at bedtime LISINOPRIL 67638363993 No Longer Active Baltazar Childers MD Active ONETOUCH ULTRA BLUE IN VITRO STRIP Test twice a day 07/11/11 GLUCOSE BLOOD 22650697640 No Longer Active Baltazar Childers MD Acti ve TRUEPLUS LANCETS 33G Test twice a day LANCETS 1364548 5904 Active KENDALL Juarez Active TRUEDRAW LANCING DEVICE Test twice a day LANCET DEVICES 74513189611 Active Baltazar Childers MD Active TRUETRACK TEST IN VITRO STRIP Test twice a day GLUCOSE BLOOD 35031812268 Active KENDALL Juarez Active TRUETRACK BLOOD GLUCOSE w/Device KIT Test twice a day BLOOD GLUCOSE MONITORING SUPPL 66429430974 Active Baltazar Childers MD Activ e HYDROCODONE-ACETAMINOPHEN 7.5-325 MG ORAL TABLET Take 1 tab every 6-8 hours PRN HYDROCODONE-ACETAMINOPHEN 09883083960 Active Baltazar Nickerson MD Active NORTRIPTYLINE HCL 50 MG ORAL CAPSULE 1 every night for neuropathy 2 NORTRIPTYLINE HCL 78430243702 Active Baltazar Childers MD Acti ve GABAPENTIN 300 MG ORAL CAPSULE 1 po qd x 2 days, then 1 po BID x 2 days, then 1 po TID GABAPENTIN 11526006031 No Longer Active Baltazar Childers MD Active TRAMADOL HCL 50 MG ORAL TABLET 1 twice a day as needed for pain 201 07/27/28 TRAMADOL HCL 25699635985 Active Baltazar Childers MD Active NAPROXEN 500 MG ORAL TABLET 1 tablet by mouth twice daily NAPROXEN 14081216636 No Longer Active Baltazar Childers MD Active PROAIR HFA 108 (90 Base) MCG/ACT INHALATION AEROSOL SO LUTION 2 puffs four times a day as needed ALBUTEROL SULFATE 62587821420 Active KENDALL Bowie Active DEPO-TESTOSTERONE 200 MG/ML INTRAMUSCULAR SOLUTION as directed TESTOSTERONE CYPIONATE 13775087664 No Longer Active Baltazar Childers MD Active LIPITOR 20 MG ORAL TABLET Take one by mouth daily in evening ATORVASTATIN CALCIUM 27562003631 No Longer Active Baltazar Childers MD Active CRESTOR 10 MG ORAL TABLET 1 by mouth every day ROSUVASTATIN CALCIUM 46122376513 No Longer Active Baltazar Childers MD Active PHENTERMINE HCL 37.5 MG ORAL TABLET Take one by mouth daily PHENTERMINE HCL 15595141332 No Longer Active Baltazar Childers MD Ac tive ROBAXIN-750 750 MG ORAL TABLET Take one by mouth daily METHOCARBAMOL 66441110486 Active Baltazar Childers MD Active TIZANIDINE HCL 4 MG ORAL TABLET 1 daily as needed for muscle spa sm TIZANIDINE HCL 18908767201 No Longer Active Dawna Salazar RN Active [id number]-[id number] 50-325-40 MG ORAL TABLET 1 fo ur times a day as needed for heacache [id number] 29389745384 Active Baltazar Childers MD Active SUMATRIPTAN SUCCINATE 100 MG ORAL TABLET 1 tablet by m out at onset of migraine as needed SUMATRIPTAN SUCCINATE 77721176284 Active KENDALL Restrepo Active LORATADINE 10 MG ORAL TABLET Take one by mouth daily LORATADINE 18992942773 Active Baltazar Childers MD Active OMEPRAZOLE 20 MG ORAL CAPSULE DELAYED RELEASE Take one by mouth jostin ly OMEPRAZOLE 96335689372 Active Baltazar Childers MD Active HYDROXYZINE HCL 25 MG ORAL TABLET Take one by mouth daily HYDROXYZINE HCL 49665549922 Active KENDALL Juarez Active ALPRAZOLAM 1 MG ORAL TABLET 1 [facility] ALPRAZOLAM 34151741043 Active Baltazar Childers MD Active METFORMIN HCL 1000 MG ORAL TABLET Take one by mouth twice daily METFORMIN HCL 45029533123 Active Baltazar Childers MD Active TIZANIDINE HCL 4 MG ORAL TABLET 1 daily as needed for muscle spa sm TIZANIDINE HCL 4 MG ORAL TABLET 019059 TIZANIDINE HCL Inactive PHENTERMINE HCL 37.5 MG ORAL TABLET Take one by mouth daily PHENTERMINE HCL 37.5 MG ORAL TABLET 252629 PHENTERMINE HCL Inac tive CRESTOR 10 MG ORAL TABLET 1 by mouth every day CRESTOR 10 MG ORAL TABLET 132537 ROSUVASTATIN CALCIUM Inactive LIPITOR 20 MG ORAL TABLET Take one by mouth daily in evening LIPITOR 20 MG ORAL TABLET 300137 ATORVASTATIN CALCIUM Inactive DEPO-TESTOSTERONE 200 MG/ML INTRAMUSCULAR SOLUTION as directed DEPO-TESTOSTERONE 200 MG/ML INTRAMUSCULAR SOLUTION 571499 RUFINO TOSTERONE CYPIONATE Inactive NAPROXEN 500 MG ORAL TABLET 1 tablet by mouth twice daily NAPROXEN 500 MG ORAL TABLET 549585 NAPROXEN Inactive GABAPENTIN 300 MG ORAL CAPSULE 1 po qd x 2 days, then 1 po BID x 2 days, then 1 po TID GABAPENTIN 300 MG ORAL CAPSULE 935620 GABAP ENTIN Inactive ONETOUCH ULTRA BLUE IN VITRO STRIP Test twice a day 07/11/11 ONETOUCH ULTRA BLUE IN VITRO STRIP GLUCOSE BLOOD Inact amie NAPROXEN SODIUM 220 MG ORAL TABLET 1 three times a day as needed NAPROXEN SODIUM 220 MG ORAL TABLET 993619 NAPROXEN SODI UM Inactive TOUJEO SOLOSTAR 300 UNIT/ML SUBCUTANEOUS SOLUTION PEN- INJECTOR 10 units SC daily TOUJEO SOLOSTAR 300 UNIT/ML SUBCUTANEOUS SOLUTION PEN-INJECTOR INSULIN GLARGINE Inactive SUCRALFATE 1 GM ORAL TABLET 1 four times a day to coat the stoma ch SUCRALFATE 1 GM ORAL TABLET 259438 SUCRALFATE Inac tive GABAPENTIN 300 MG ORAL CAPSULE 1 three times a day 201 12/03/26 GABAPENTIN 300 MG ORAL CAPSULE 888159 GABAPENTIN Inactive ZITHROMAX Z-ISAIAS 250 MG ORAL TABLET Take two tablets to day and then 1 tablet daily for 4 days ZITHROMAX Z-ISAIAS 250 MG ORAL TAB LET 137583 AZITHROMYCIN Inactive Immunizations Vaccine Administration Date Value Standard Floyd cription pneumococcal immunization administered Pneumovax 23 [CVX33] pneumococcal polysaccharide vaccine, 23 valent Seasonal influenza vaccine, injectable, containing preservative, for > 3 years old (Afluria, FluLaval, Fluzone, Fluvirin, Fluarix, Agriflu(>= 18 yo)) Fluzone (>3 yrs.) [JAE017] Influenza, seasonal, inject able Seasonal influenza vaccine, injectable, containing preservative, for > 3 years old (Afluria, FluLaval, Fluzone, Fluvirin, Fluarix, Agriflu(>= 18 yo)) Fluzone (>3 yrs.) [HSO212] Influenza, seasonal, inject able Vital Signs Date [...] - Chem istry sodium, serum 139 mmol/L 998-731 1867/10/03 potassium, serum 4.7 mmol/L 3.5-5.2 chloride, serum 98 mmol/L 98-107 carbon dioxide, venous blood 28.7 mmol/L 21.0-32 .0 blood glucose 218 mg/dL 65-110 calcium, serum 9.8 mg/dL 8.5-10.1 urea nitrogen, blood 19 mg/dL 7-18 creatinine, serum 1.68 mg/dL 0.60-1.30 Lab Report: Basic Metabolic Panel, HGBA1 C - Chemistry sodium, serum 143 mmol/L 031-460 4717/06/19 potassium, serum 5.9 mmol/L 3.5-5.2 chloride, serum 105 mmol/L 98-107 carbon dioxide, venous blood 30.2 mmol/L 21.0-32 .0 blood glucose 189 mg/dL 65-110 calcium, serum 9.7 mg/dL 8.5-10.1 urea nitrogen, blood 37 mg/dL 7-18 creatinine, serum 2.11 mg/dL 0.55-1.30 hemoglobin A1C, blood, as % of total hemoglobin 8.2 % 4.3-6.0 Lab Report: CBC, Renal Panel - Chemistry sodium, serum 142 mmol/L 940-789 6953/08/11 potassium, serum 4.8 mmol/L 3.5-5.2 chloride, serum [...] (L) - Chemistry cholesterol, serum 209 mg/dL 455-622 2913/12/27 triglyceride, serum, fasting 329 mg/dL 30-200 HDL cholesterol, serum 56 mg/dL 32-60 LDL cholesterol, serum 87 mg/dL 0-130 TSH 3.60 m[iU]/mL 0.36-3.74 Encounters Code Encounter Date Provider Facility CPT-62070 Level 4 Est. Patient 16:21:19 CRAB STEAMER Baltazar Childers MD [facility] CPT-34989 Level 4 Est. Patient 12:25:11 CDT Baltazar Childers MD [facility]-88396 Level 4 Est. Patient 14:22:31 CDT Baltazar Childers MD [facility]-21631 Level 4 Est. Patient 15:44:38 CDT Shonna Parker APRN [facility]-05195 Level 4 Est. Patient 11:34:17 CDT Baltazar Childers MD [facility]-52285 Level 3 Est. Patient 16:40:40 CDT Baltazar Childers MD [facility]-10913 Level 4 Est. Patient 10:41:24 CDT Baltazar Childers MD [facility]-80953 Level 4 Est. Patient 16:01:48 CDT Baltazar Childers MD [facility]-37803 Level 4 Est. Patient 16:54:07 CRAB STEAMER Baltazar Childers MD [facility]23763 Level 4 Est. Patient 15:42:12 CDT Baltazar Childers MD [facility] CPT-11885 Level 4 Est. Patient 11:29:55 CDT Baltazar Childers MD [facility]-76647 Level 4 Est. Patient 14:15:19 CDT Baltazar Childers MD [facility]-79131 Level 4 Est. Patient 12:20:13 CDT Baltazar Childers MD [facility]-26315 Level 4 Est. Patient 14:52:45 CRAB STEAMER Baltazar Childers MD [facility]-57501 Level 4 Est. Patient 14:18:34 CRAB STEAMER Baltazar Childers MD [facility]-46262 Level 4 Est. Patient 15:18:29 CDT Baltazar Childers MD [facility]-71791 Level 3 Est. Patient 12:45:34 CDT Baltazar Childers MD [facility] CPT-95571 Level 3 Est. Patient 10:10:11 CDT Baltazar Childers MD [facility] CPT-51469 Level 3 Est. Patient 14:07:50 CDT Baltazar Childers MD [facility] CPT-76086 Level 4 Est. Patient 12:26:10 CRAB STEAMER Baltazar Childers MD [facility] CPT-94585 Level 4 Est. Patient 14:45:38 CDT Baltazar Childers MD [facility] CPT-85612 Level 4 New Patient 12:30:48 CDT Baltazar hinton MD [facility] Procedures Code Procedure Name Date Entry Date Standard Desc ription CPT-88614 First Vx - Ix admin via ID I M or jet injects without counseling by physician 13:08:59 CDT CPT-91558 Fluzone Quadrivalent Intramuscular Suspe nsion 0.5 ML 13:08:59 CDT CPT-08567 Venipuncture Draw Fee 12:04:12 CDT CPT-20759 Lipid - LAB USE ONLY 17:39:15 CRAB STEAMER 9 CPT-32648 HGBA1C - LAB USE ONLY 17:39:15 CRAB STEAMER CPT-48915 CMP - LAB USE ONLY 17:39:14 CRAB STEAMER CPT-15323 Venipuncture Draw Fee 17:39:14 CRAB STEAMER CPT-04445 First Vx - Ix admin via ID I M or jet injects without counseling by physician 16:55:17 CRAB STEAMER CPT-62015 Fluzone Quadrivalent Intramuscular Suspe nsion 0.5 ML 16:55:17 CRAB STEAMER CPT-18422 Renal Panel - LAB USE ONLY 17:39:20 CDT 201 10/31/07 CPT-62977 CBC - LAB USE ONLY 17:39:20 CDT CPT-29704 Venipuncture Draw Fee 17:39:20 CDT CPT-74493 Venipuncture Draw Fee 14:33:30 CDT CPT-42289 Renal Panel - LAB USE ONLY 14:33:30 CDT 201 10/31/07 CPT-87380 CBC - LAB USE ONLY 14:33:29 CDT CPT-15097 Venipuncture Draw Fee 14:50:21 CRAB STEAMER CPT-76785 Immunization Single Admin 17:35:35 CDT 2014 CPT-39276 Fluzone Quadrivalent preservative free ( >=3yrs.) 17:35:35 CDT CPT-82261 Venipuncture Draw Fee 12:10:27 CRAB STEAMER CPT-38462 Fluzone Quadrivalent Intramuscular Suspe nsion 0.5 ML 10:49:13 CDT CPT-84687 First Vx Component - Ix admi n via ID IM or jet inj without physician counseling 15:17:19 CRAB STEAMER CPT-57610 Pneumovax 23 15:17:19 CRAB STEAMER CPT-65312 Pneumovax 14:52:45 CRAB STEAMER CPT-95774 Venipuncture Draw Fee 14:06:30 CRAB STEAMER CPT-000 Give Appropriate Flu Vaccine 14:18:34 CRAB STEAMER 2 CPT-52174 Administration single or combination vac cine inc oral 14:46:00 CRAB STEAMER CPT-56399 Influenza split virus > age 3 14:46:00 CRAB STEAMER CPT-OV Office Visit 19:13:16 CDT CPT-81541 Zostavax 18:41:56 CDT CPT-66198 Administration single or combination vac cine inc oral 12:56:39 CDT CPT-15184 Zoster Vaccine (Zostavax) 12:56:39 CDT 2012 CPT-91148 Venipuncture Draw Fee 10:58:57 CDT CPT-00739 Sono pelvis non OB uterus ovaries cervix 17:45:04 CDT CPT-12414 Sono retroperitoneal complete kidneys an d bladder 17:14:36 CDT CPT-OV Office Visit 14:59:38 CRAB STEAMER CPT-J1070 Depo Testosterone 100 mg 14:50:13 CDT 03/05 CPT-08073 Abx/Therapy Injection 14:50:13 CDT CPT-89004 Administration single or combination vac cine inc oral 14:34:43 CDT CPT-49760 Influenza split virus > age 3 14:34:43 CDT CPT-J1070 Depo Testosterone 100 mg 17:37:13 CDT 01/11 CPT-76867 Abx/Therapy Injection 17:37:13 CDT CPT-63258 Venipuncture Draw Fee 16:30:13 CDT CPT-27537 Venipuncture Draw Fee 16:29:43 CDT CPT-J1070 Depo Testosterone 100 mg 14:45:38 CDT 01/11
--- OUTSIDE RECORDS SUMMARY | 2019-10-27 13:06 | XMS REPORT | Clinical Summary ---
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 Benign neoplasm of colon PERIPHERAL NEUROPATHY 356.9 [...] ronary atherosclerosis of unspecified type of vessel, inupiat or graft OTH NONSPC ABN FINDNG RAD&OTH [...] Test twice a day GLUCO SE BLOOD 48898553008 No Longer Active Baltazar Childers MD Active TRUEPLUS LANCETS 33G MISC Test twice a day LANCET S 09683732994 Active Baltazar Childers MD Active TRUEDRAW LANCING DEVICE MISC Test twice a day L ANCET DEVICES 24857159000 Active Baltazar Childers MD Active TRUETRACK TEST STRP Test twice a day GLUCOSE BLOO D 94691353019 Active Baltazar Childers MD Active TRUETRACK BLOOD GLUCOSE W/DEVICE KIT Test twice a day BLOOD GLUCOSE MONITORING SUPPL 18777042989 Active Baltazar Childers MD Activ e HYDROCODONE-ACETAMINOPHEN 7.5-325 MG TABS Take 1 tab every 6-8 hour s PRN HYDROCODONE-ACETAMINOPHEN 76964848476 Active Gato Rae MD Active NORTRIPTYLINE HCL 50 MG CAPS 1 every night for neuropathy 4 NORTRIPTYLINE HCL 79260229666 Active Baltazar Childers MD Acti ve GABAPENTIN 300 MG CAPS 1 three times a day GABAPE NTIN 63297463979 Active Baltazar Childers MD Active GABAPENTIN 300 MG CAPS 1 po qd x 2 days, then 1 po BID x 2 d ays, then 1 po TID GABAPENTIN 60425721903 No Longer Active Baltazar silverman MD Active TRAMADOL HCL 50 MG TABS 1 twice a day as needed for pain TRAMADOL HCL 99990902843 Active Baltazar Childers MD Active NAPROXEN 500 MG TABS 1 tablet by mouth twice daily NAPROXEN 94133527082 No Longer Active Baltazar Childers MD Active PROAIR HFA 108 (90 BASE) MCG/ACT AERS 2 puffs four times a d ay as needed ALBUTEROL SULFATE 50400943304 Active Baltazar Childers MD Active DEPO-TESTOSTERONE 200 MG/ML OIL as directed RUFINO TOSTERONE CYPIONATE 04775607864 No Longer Active Baltazar Childers MD Active LIPITOR 20 MG TABS Take one by mouth daily in evening ATORVASTATIN CALCIUM 02472608222 No Longer Active Baltazar Childers MD Activ e CRESTOR 10 MG TABS 1 by mouth every day R OSUVASTATIN CALCIUM 69928264698 No Longer Active Baltazar Childers MD Activ e PHENTERMINE HCL 37.5 MG TABS Take one by mouth daily 2 PHENTERMINE HCL 57003403994 No Longer Active Baltazar Childers MD Activ e ROBAXIN-750 750 MG TABS Take one by mouth daily ME THOCARBAMOL 00787489457 Active Baltazar Childers MD Active TIZANIDINE HCL 4 MG TABS 1 daily as needed for muscle spasm 2011 TIZANIDINE HCL 43594454599 No Longer Active Dawna Salazar RN Active [id number] 50-325-40 MG TABS 1 four time s a day as needed for heacache [id number] 83276169194 Active Bella Suarez APRN Active SUMATRIPTAN SUCCINATE 100 MG TABS 1 tablet by mouth at onset of migraine as needed SUMATRIPTAN SUCCINATE 42865132204 Active Baltazar bynum MD Active LORATADINE 10 MG TABS Take one by mouth daily LORATADINE 03819987583 Active Baltazar Childers MD Active FUROSEMIDE 40 MG TABS Take one by mouth daily FUROSEMIDE 24514837911 Active Baltazar Childers MD Active LISINOPRIL 20 MG TABS Take one by mouth daily at bedtime LISINOPRIL 84823364639 Active Baltazar Childers MD Active OMEPRAZOLE 20 MG CPDR Take one by mouth daily OMEPRAZOLE 51314533143 Active Baltazar Childers MD Active HYDROXYZINE HCL 25 MG TABS Take one by mouth daily HYDROXYZINE HCL 04736016024 Active Baltazar Childers MD Active GLIPIZIDE 10 MG TABS 1 tablet by mouth twice daily GLIPIZIDE 85847286831 Active Baltazar Childers MD Active ALPRAZOLAM 1 MG TABS 1 tablet by mouth daily at bedtime for restles s leg ALPRAZOLAM 09393013547 Active Baltazar Childers MD Active METFORMIN HCL 1000 MG TABS Take one by mouth twice daily METFORMIN HCL 29672646018 Active Baltazar Childers MD Active TIZANIDINE HCL 4 MG TABS 1 daily as needed for muscle spasm 2011 TIZANIDINE HCL 4 MG TABS 213013 TIZANIDINE HCL Inactiv e PHENTERMINE HCL 37.5 MG TABS Take one by mouth daily 2 PHENTERMINE HCL 37.5 MG TABS 362284 PHENTERMINE HCL Inactive CRESTOR 10 MG TABS 1 by mouth every day C RESTOR 10 MG TABS ROSUVASTATIN CALCIUM Inactive LIPITOR 20 MG TABS Take one by mouth daily in evening LIPITOR 20 MG TABS 144206 ATORVASTATIN CALCIUM Inactive DEPO-TESTOSTERONE 200 MG/ML OIL as directed 8 DEPO-TESTOSTERONE 200 MG/ML OIL 861949 TESTOSTERONE CYPIONATE Inactive NAPROXEN 500 MG TABS 1 tablet by mouth twice daily 201 07/27/22 NAPROXEN 500 MG TABS 423740 NAPROXEN Inactive GABAPENTIN 300 MG CAPS 1 po qd x 2 days, then 1 po BID x 2 d ays, then 1 po TID GABAPENTIN 300 MG CAPS 508202 GABAPENTIN Inact amie ONETOUCH ULTRA BLUE STRP Test twice a day ONETOUCH ULTRA BLUE STRP GLUCOSE BLOOD Inactive Immunizations Vaccine Administration Date Value Standard Floyd cription pneumococcal immunization administered Pneumovax 23 [CVX33] pneumococcal polysaccharide vaccine, 23 valent Seasonal influenza vaccine, injectable, containing preservative, for > 3 years old (Afluria, FluLaval, Fluzone, Fluvirin, Fluarix, Agriflu(>= 18 yo)) Fluzone (>3 yrs.) [AVU485] Influenza, seasonal, inject able Seasonal influenza vaccine, injectable, containing preservative, for > 3 years old (Afluria, FluLaval, Fluzone, Fluvirin, Fluarix, Agriflu(>= 18 yo)) Fluzone (>3 yrs.) [UNU591] Influenza, seasonal, inject able Vital Signs Date [...] - Chem istry sodium, serum 140 mmol/L 109-603 8969/05/05 potassium, serum 4.9 mmol/L 3.5-5.2 chloride, serum [...] Panel - Chemistry sodium, serum 139 mmol/L 347-154 6821/01/20 potassium, serum 5.3 mmol/L 3.5-5.2 chloride, serum [...] mg/g mg/g{creat} 0-29 cholesterol, serum 319 mg/dL 698-347 8750/08/21 triglyceride, serum, fasting 546 mg/dL 30-200 HDL cholesterol, serum 39 mg/dL 32-96 LDL cholesterol, serum 167.00 mg/dL 5.00-130.00 hemoglobin A1C, blood, as % of total hemoglobin 7.7 % 4.3-6.0 sodium, serum 138 mmol/L 078-472 2109/08/21 potassium, serum 4.3 mmol/L 3.5-5.2 chloride, serum [...] 0-19 Encounters Code Encounter Date Provider Facility CPT-99466 Level 4 Est. Patient 11:29:55 CDT Baltazar Childers MD [facility] CPT-98819 Level 4 Est. Patient 14:15:19 CDT Baltazar Childers MD [facility] CPT-47946 Level 4 Est. Patient 12:20:13 CDT Baltazar Childers MD [facility] CPT-80488 Level 4 Est. Patient 14:52:45 TEST RIDER Baltazar Childers MD [facility] CPT-80451 Level 4 Est. Patient 14:18:34 TEST RIDER Baltazar Childers MD [facility] CPT-16473 Level 4 Est. Patient 15:18:29 CDT Baltazar Childers MD [facility] CPT-11015 Level 3 Est. Patient 12:45:34 CDT Baltazar Childers MD [facility] CPT-86665 Level 3 Est. Patient 10:10:11 CDT Baltazar Childers MD [facility] CPT-11446 Level 3 Est. Patient 14:07:50 CDT Baltazar Childers MD [facility] CPT-13513 Level 4 Est. Patient 12:26:10 TEST RIDER Baltazar Childers MD [facility] CPT-25080 Level 4 Est. Patient 14:45:38 CDT Baltazar Childers MD [facility] CPT-01970 Level 4 New Patient 12:30:48 CDT Baltazar hinton MD [facility] Procedures Code Procedure Name Date Entry Date Standard Desc ription CPT-73408 Venipuncture Draw Fee 12:10:27 TEST RIDER CPT-86378 Fluzone Quadrivalent Intramuscular Suspe nsion 0.5 ML 10:49:13 CDT CPT-88619 First Vx Component - Ix admi n via ID IM or jet inj without physician counseling 15:17:19 TEST RIDER CPT-42254 Pneumovax 15:17:19 TEST RIDER CPT-56988 Pneumovax 14:52:45 TEST RIDER CPT-68659 Venipuncture Draw Fee 14:06:30 TEST RIDER CPT-000 Give Appropriate Flu Vaccine 14:18:34 TEST RIDER 2 CPT-10785 Administration single or combination vac cine inc oral 14:46:00 TEST RIDER CPT-96695 Influenza split virus > age 3 14:46:00 TEST RIDER CPT-OV Office Visit 19:13:16 CDT CPT-77752 Zostavax 18:41:56 CDT CPT-06914 Administration single or combination vac cine inc oral 12:56:39 CDT CPT-72258 Zoster Vaccine (Zostavax) 12:56:39 CDT 2012 CPT-52563 Venipuncture Draw Fee 10:58:57 CDT CPT-47988 Sono pelvis non OB uterus ovaries cervix 17:45:04 CDT CPT-43591 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
--- OUTSIDE RECORDS SUMMARY | 2019-10-27 13:06 | XMS REPORT | Clinical Summary ---
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 Benign neoplasm of colon PERIPHERAL NEUROPATHY 356.9 [...] MISC Test twice a day LANCET S 41071567737 Active Baltazar Childers MD Active TRUEDRAW LANCING DEVICE MISC Test twice a day L ANCET DEVICES 20192250281 Active Baltazar Childers MD Active TRUETRACK TEST STRP Test twice a day GLUCOSE BLOO D 29200901381 Active Baltazar Childers MD Active TRUETRACK BLOOD GLUCOSE W/DEVICE KIT Test twice a day BLOOD GLUCOSE MONITORING SUPPL 19055310406 Active Bella Suarez MARKETING SALES REPRESENTATIVE Active HYDROCODONE-ACETAMINOPHEN 7.5-325 MG TABS Take 1 tab every 6-8 hour s PRN HYDROCODONE-ACETAMINOPHEN 46860527180 Active Baltazar Childers MD Active NORTRIPTYLINE HCL 50 MG CAPS 1 every night for neuropathy 4 NORTRIPTYLINE HCL 81003041675 Active Baltazar Childers MD Acti ve GABAPENTIN 300 MG CAPS 1 three times a day GABAPE NTIN 31743084505 Active Baltazar Childers MD Active GABAPENTIN 300 MG CAPS 1 po qd x 2 days, then 1 po BID x 2 d ays, then 1 po TID GABAPENTIN 06507447006 No Longer Active Baltazar silverman MD Active TRAMADOL HCL 50 MG TABS 1 twice a day as needed for pain TRAMADOL HCL 77685711338 Active Baltazar Childers MD Active NAPROXEN 500 MG TABS 1 tablet by mouth twice daily NAPROXEN 28919574908 No Longer Active Baltazar Childers MD Active PROAIR HFA 108 (90 BASE) MCG/ACT AERS 2 puffs four times a d ay as needed ALBUTEROL SULFATE 76321035884 Active Baltazar Childers MD Active DEPO-TESTOSTERONE 200 MG/ML OIL as directed RUFINO TOSTERONE CYPIONATE 34887736318 No Longer Active Baltazar Childers MD Active LIPITOR 20 MG TABS Take one by mouth daily in evening ATORVASTATIN CALCIUM 07935501763 No Longer Active Baltazar Childers MD Activ e CRESTOR 10 MG TABS 1 by mouth every day R OSUVASTATIN CALCIUM 18334882532 No Longer Active Baltazar Childers MD Activ e PHENTERMINE HCL 37.5 MG TABS Take one by mouth daily 2 PHENTERMINE HCL 91132185521 No Longer Active Baltazar Childers MD Activ e ROBAXIN-750 750 MG TABS Take one by mouth daily ME THOCARBAMOL 15253596918 Active Baltazar Childers MD Active TIZANIDINE HCL 4 MG TABS 1 daily as needed for muscle spasm 2011 TIZANIDINE HCL 82706139125 No Longer Active Dawna Salazar RN Active ONETOUCH ULTRA BLUE STRP Test twice a day GLUCO SE BLOOD 80043366118 Active Baltazar Childers MD Active [id number] 50-325-40 MG TABS 1 four time s a day as needed for heacache [id number] 64399918239 Active Baltazar Childers MD Active SUMATRIPTAN SUCCINATE 100 MG TABS 1 tablet by mouth at onset of migraine as needed SUMATRIPTAN SUCCINATE 90209018170 Active Baltazar barron MD Active LORATADINE 10 MG TABS Take one by mouth daily LORATADINE 24234567951 Active Baltazar Childers MD Active FUROSEMIDE 40 MG TABS Take one by mouth daily FUROSEMIDE 32946845267 Active Baltazar Childers MD Active LISINOPRIL 20 MG TABS Take one by mouth daily at bedtime LISINOPRIL 71957777050 Active Baltazar Childers MD Active OMEPRAZOLE 20 MG CPDR Take one by mouth daily OMEPRAZOLE 51348022114 Active Baltazar Childers MD Active HYDROXYZINE HCL 25 MG TABS Take one by mouth daily HYDROXYZINE HCL 09087449050 Active Baltazar Childers MD Active GLIPIZIDE 10 MG TABS 1 tablet by mouth twice daily GLIPIZIDE 67745697816 Active Baltazar Chiledrs MD Active ALPRAZOLAM 1 MG TABS 1 tablet by mouth daily at bedtime for restles s leg ALPRAZOLAM 98544606544 Active Baltazar Childers MD Active METFORMIN HCL 1000 MG TABS Take one by mouth twice daily METFORMIN HCL 86707428264 Active Baltazar Childers MD Active TIZANIDINE HCL 4 MG TABS 1 daily as needed for muscle spasm 2011 TIZANIDINE HCL 4 MG TABS 532014 TIZANIDINE HCL Inactiv e PHENTERMINE HCL 37.5 MG TABS Take one by mouth daily 2 PHENTERMINE HCL 37.5 MG TABS 636002 PHENTERMINE HCL Inactive CRESTOR 10 MG TABS 1 by mouth every day C RESTOR 10 MG TABS ROSUVASTATIN CALCIUM Inactive LIPITOR 20 MG TABS Take one by mouth daily in evening LIPITOR 20 MG TABS 083249 ATORVASTATIN CALCIUM Inactive DEPO-TESTOSTERONE 200 MG/ML OIL as directed 8 DEPO-TESTOSTERONE 200 MG/ML OIL 719171 TESTOSTERONE CYPIONATE Inactive NAPROXEN 500 MG TABS 1 tablet by mouth twice daily 201 07/27/22 NAPROXEN 500 MG TABS 874070 NAPROXEN Inactive GABAPENTIN 300 MG CAPS 1 po qd x 2 days, then 1 po BID x 2 d ays, then 1 po TID GABAPENTIN 300 MG CAPS 530396 GABAPENTIN Inact amie Immunizations Vaccine Administration Date Value Standard Floyd cription pneumococcal immunization administered Pneumovax 23 [CVX33] pneumococcal polysaccharide vaccine, 23 valent Seasonal influenza vaccine, injectable, containing preservative, for > 3 years old (Afluria, FluLaval, Fluzone, Fluvirin, Fluarix, Agriflu(>= 18 yo)) Fluzone (>3 yrs.) [OES063] Influenza, seasonal, inject able Seasonal influenza vaccine, injectable, containing preservative, for > 3 years old (Afluria, FluLaval, Fluzone, Fluvirin, Fluarix, Agriflu(>= 18 yo)) Fluzone (>3 yrs.) [FWX856] Influenza, seasonal, inject able Vital Signs Date [...] - Chem istry sodium, serum 140 mmol/L 940-431 5792/05/05 potassium, serum 4.9 mmol/L 3.5-5.2 chloride, serum [...] Panel - Chemistry sodium, serum 139 mmol/L 666-686 6042/01/20 potassium, serum 5.3 mmol/L 3.5-5.2 chloride, serum [...] mg/g mg/g{creat} 0-29 cholesterol, serum 319 mg/dL 962-193 3946/08/21 triglyceride, serum, fasting 546 mg/dL 30-200 HDL cholesterol, serum 39 mg/dL 32-96 LDL cholesterol, serum 167.00 mg/dL 5.00-130.00 hemoglobin A1C, blood, as % of total hemoglobin 7.7 % 4.3-6.0 sodium, serum 138 mmol/L 369-561 7436/08/21 potassium, serum 4.3 mmol/L 3.5-5.2 chloride, serum [...] 0-19 Encounters Code Encounter Date Provider Facility CPT-08321 Level 4 Est. Patient 11:29:55 CDT Baltazar Childers MD [facility] CPT-30941 Level 4 Est. Patient 14:15:19 CDT Baltazar Childers MD [facility] CPT-91891 Level 4 Est. Patient 12:20:13 CDT Baltazar Childers MD [facility] CPT-50350 Level 4 Est. Patient 14:52:45 RADIO FREQUENCY DESIGN ENGINEER Baltazar Childers MD [facility] CPT-98258 Level 4 Est. Patient 14:18:34 RADIO FREQUENCY DESIGN ENGINEER Baltazar Childers MD [facility] CPT-58171 Level 4 Est. Patient 15:18:29 CDT Baltazar Childers MD [facility] CPT-52758 Level 3 Est. Patient 12:45:34 CDT Baltazar Childers MD [facility] CPT-77023 Level 3 Est. Patient 10:10:11 CDT Baltazar Childers MD [facility] CPT-49941 Level 3 Est. Patient 14:07:50 CDT Baltazar Childers MD [facility] CPT-73062 Level 4 Est. Patient 12:26:10 RADIO FREQUENCY DESIGN ENGINEER Baltazar Childers MD [facility] CPT-32720 Level 4 Est. Patient 14:45:38 CDT Balatzar Childers MD [facility] CPT-52311 Level 4 New Patient 12:30:48 CDT Baltazar hinton MD [facility] Procedures Code Procedure Name Date Entry Date Standard Desc ription CPT-67543 Venipuncture Draw Fee 12:10:27 RADIO FREQUENCY DESIGN ENGINEER CPT-67534 Fluzone Quadrivalent Intramuscular Suspe nsion 0.5 ML 10:49:13 CDT CPT-52997 First Vx Component - Ix admi n via ID IM or jet inj without physician counseling 15:17:19 RADIO FREQUENCY DESIGN ENGINEER CPT-16823 Pneumovax 15:17:19 RADIO FREQUENCY DESIGN ENGINEER CPT-88904 Pneumovax 14:52:45 RADIO FREQUENCY DESIGN ENGINEER CPT-42587 Venipuncture Draw Fee 14:06:30 RADIO FREQUENCY DESIGN ENGINEER CPT-000 Give Appropriate Flu Vaccine 14:18:34 RADIO FREQUENCY DESIGN ENGINEER 2 CPT-84147 Administration single or combination vac cine inc oral 14:46:00 RADIO FREQUENCY DESIGN ENGINEER CPT-99375 Influenza split virus > age 3 14:46:00 RADIO FREQUENCY DESIGN ENGINEER CPT-OV Office Visit 19:13:16 CDT CPT-46159 Zostavax 18:41:56 CDT CPT-19631 Administration single or combination vac cine inc oral 12:56:39 CDT CPT-07157 Zoster Vaccine (Zostavax) 12:56:39 CDT 2012 CPT-25178 Venipuncture Draw Fee 10:58:57 CDT CPT-43073 Sono pelvis non OB uterus ovaries cervix 17:45:04 CDT CPT-77194 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
--- OUTSIDE RECORDS SUMMARY | 2019-10-27 13:06 | XMS REPORT | Clinical Summary ---
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 Benign neoplasm of colon PERIPHERAL NEUROPATHY 356.9 [...] LPN Unspecified hypothyroidism Pharyngitis 462 Resolved Baltazar Cihlders MD Acute pharyngitis BMI 37-37.9 adult V85.37 Active Baltazar Childers MD Body Mass Index 37.0-37.9, adult COLON POLYPS ICD-211.3 Inactive Lolis Thomas APR N Pharyngitis ICD-462 Inactive Baltazar Childers MD Medication List Medication Instructions Start Date Stop Date Generic Name NDC Status Provider Patient Instruction GABAPENTIN 300 MG ORAL CAPSULE 1 three times a day 201 12/03/26 GABAPENTIN 47572775072 No Longer Active Baltazar Childers MD Activ e LISINOPRIL 20 MG ORAL TABLET 1 tablet by mouth daily at night 2016 LISINOPRIL 45937372996 Active Baltazar Childers MD Active ZITHROMAX Z-ISAIAS 250 MG ORAL TABLET Take two tablets to day and then 1 tablet daily for 4 days AZITHROMYCIN 61912492347 No Longer A ctive Baltazar Childers MD Active LANTUS SOLOSTAR 100 UNIT/ML SUBCUTANEOUS SOLUTION PEN- INJECTOR 30 units SC daily INSULIN GLARGINE 46929894507 Active Baltazar Childers MD Active AMLODIPINE BESYLATE 5 MG ORAL TABLET 1 tab daily for HTN AMLODIPINE BESYLATE 86398467673 Active Baltazar Childers MD Active SYNTHROID 100 MCG ORAL TABLET 1 tablet by mouth daily LEVOTHYROXINE SODIUM 47737512174 Active Baltazar Chliders MD Active GLIPIZIDE 10 MG ORAL TABLET take 2 tablets twice daily GLIPIZIDE 57008524322 Active Baltazar Childers MD Active SUCRALFATE 1 GM ORAL TABLET 1 four times a day to coat the stoma ch SUCRALFATE 25279083008 No Longer Active Baltazar Childers MD Active PEN NEEDLES 31G X 6 MM use 1 daily INSULIN PEN NE EDLE 16207630672 Active KENDALL Juarez Active CELINA POWERSOSTNAKITA 300 UNIT/ML SUBCUTANEOUS SOLUTION PEN- INJECTOR 10 units SC daily INSULIN GLARGINE 83133974250 No Longer Active Rola Godinez RMA Active NAPROXEN SODIUM 220 MG ORAL TABLET 1 three times a day as needed NAPROXEN SODIUM 67850370453 No Longer Active Baltazar Childers MD Active ATORVASTATIN CALCIUM 20 MG ORAL TABLET Take 1 tab daily ATORVASTATIN CALCIUM 87278965788 Active Baltazar Childers MD A ctive FUROSEMIDE 40 MG ORAL TABLET Take one by mouth daily FUROSEMIDE 01674599314 Active Jessy Arellano LPN Active LISINOPRIL 20 MG ORAL TABLET Take one by mouth daily at bedtime LISINOPRIL 99313461566 No Longer Active Baltazar Childers MD Active ONETOUCH ULTRA BLUE IN VITRO STRIP Test twice a day 07/11/11 GLUCOSE BLOOD 47643282049 No Longer Active Baltazar Childers MD Acti ve TRUEPLUS LANCETS 33G Test twice a day LANCETS 8349834 0501 Active KENDALL Juarez Active TRUEDRAW LANCING DEVICE Test twice a day LANCET DEVICES 57371107425 Active Baltazar Childers MD Active TRUETRACK TEST IN VITRO STRIP Test twice a day GLUCOSE BLOOD 77290704964 Active KENDALL Juarez Active TRUETRACK BLOOD GLUCOSE w/Device KIT Test twice a day BLOOD GLUCOSE MONITORING SUPPL 59828131659 Active Baltazar Childers MD Activ e HYDROCODONE-ACETAMINOPHEN 7.5-325 MG ORAL TABLET Take 1 tab every 6-8 hours PRN HYDROCODONE-ACETAMINOPHEN 01426098258 Active Baltazar Nickerson MD Active NORTRIPTYLINE HCL 50 MG ORAL CAPSULE 1 every night for neuropathy 2 NORTRIPTYLINE HCL 97279463020 Active Baltazar Childers MD Acti ve GABAPENTIN 300 MG ORAL CAPSULE 1 po qd x 2 days, then 1 po BID x 2 days, then 1 po TID GABAPENTIN 81191316497 No Longer Active Baltazar Childers MD Active TRAMADOL HCL 50 MG ORAL TABLET 1 twice a day as needed for pain 201 07/27/28 TRAMADOL HCL 35078053491 Active Baltazar Childers MD Active NAPROXEN 500 MG ORAL TABLET 1 tablet by mouth twice daily NAPROXEN 06882676050 No Longer Active Baltazar Childers MD Active PROAIR HFA 108 (90 Base) MCG/ACT INHALATION AEROSOL SO LUTION 2 puffs four times a day as needed ALBUTEROL SULFATE 89670740260 Active Paul Childers MD Active DEPO-TESTOSTERONE 200 MG/ML INTRAMUSCULAR SOLUTION as directed TESTOSTERONE CYPIONATE 85418888842 No Longer Active Baltazar Childers MD Active LIPITOR 20 MG ORAL TABLET Take one by mouth daily in evening ATORVASTATIN CALCIUM 55907988647 No Longer Active Baltazar Childers MD Active CRESTOR 10 MG ORAL TABLET 1 by mouth every day ROSUVASTATIN CALCIUM 94372893837 No Longer Active Baltazar Childers MD Active PHENTERMINE HCL 37.5 MG ORAL TABLET Take one by mouth daily PHENTERMINE HCL 95422146985 No Longer Active Baltazar Childers MD Ac tive ROBAXIN-750 750 MG ORAL TABLET Take one by mouth daily METHOCARBAMOL 14590900735 Active Baltazar Childers MD Active TIZANIDINE HCL 4 MG ORAL TABLET 1 daily as needed for muscle spa sm TIZANIDINE HCL 69865415051 No Longer Active Dawna Salazar RN Active [id number] 50-325-40 MG ORAL TABLET 1 fo ur times a day as needed for heacache [id number] 92170282280 Active Baltazar Childers MD Active SUMATRIPTAN SUCCINATE 100 MG ORAL TABLET 1 tablet by m outh at onset of migraine as needed SUMATRIPTAN SUCCINATE 08562778633 Active KENDALL Restrepo Active LORATADINE 10 MG ORAL TABLET Take one by mouth daily LORATADINE 46857676329 Active Baltazar Childers MD Active OMEPRAZOLE 20 MG ORAL CAPSULE DELAYED RELEASE Take one by mouth jostin ly OMEPRAZOLE 12419240093 Active Baltazar Childers MD Active HYDROXYZINE HCL 25 MG ORAL TABLET Take one by mouth daily HYDROXYZINE HCL 34672001900 Active Baltazar Childers MD Active ALPRAZOLAM 1 MG ORAL TABLET 1 tablet [facility] ALPRAZOLAM 96904908973 Active Baltazar Childers MD Active METFORMIN HCL 1000 MG ORAL TABLET Take one by mouth twice daily METFORMIN HCL 78215846776 Active Baltazar Childers MD Active TIZANIDINE HCL 4 MG ORAL TABLET 1 daily as needed for muscle spa sm TIZANIDINE HCL 4 MG ORAL TABLET 653456 TIZANIDINE HCL Inactive PHENTERMINE HCL 37.5 MG ORAL TABLET Take one by mouth daily PHENTERMINE HCL 37.5 MG ORAL TABLET 933263 PHENTERMINE HCL Inac tive CRESTOR 10 MG ORAL TABLET 1 by mouth every day CRESTOR 10 MG ORAL TABLET 801026 ROSUVASTATIN CALCIUM Inactive LIPITOR 20 MG ORAL TABLET Take one by mouth daily in evening LIPITOR 20 MG ORAL TABLET 766793 ATORVASTATIN CALCIUM Inactive DEPO-TESTOSTERONE 200 MG/ML INTRAMUSCULAR SOLUTION as directed DEPO-TESTOSTERONE 200 MG/ML INTRAMUSCULAR SOLUTION 548899 RUFINO TOSTERONE CYPIONATE Inactive NAPROXEN 500 MG ORAL TABLET 1 tablet by mouth twice daily NAPROXEN 500 MG ORAL TABLET 476611 NAPROXEN Inactive GABAPENTIN 300 MG ORAL CAPSULE 1 po qd x 2 days, then 1 po BID x 2 days, then 1 po TID GABAPENTIN 300 MG ORAL CAPSULE 932788 GABAP ENTIN Inactive ONETOUCH ULTRA BLUE IN VITRO STRIP Test twice a day 07/11/11 ONETOUCH ULTRA BLUE IN VITRO STRIP GLUCOSE BLOOD Inact amie NAPROXEN SODIUM 220 MG ORAL TABLET 1 three times a day as needed NAPROXEN SODIUM 220 MG ORAL TABLET 734460 NAPROXEN SODI UM Inactive TOUJEO SOLOSTAR 300 UNIT/ML SUBCUTANEOUS SOLUTION PEN- INJECTOR 10 units SC daily TOUJEO SOLOSTAR 300 UNIT/ML SUBCUTANEOUS SOLUTION PEN-INJECTOR INSULIN GLARGINE Inactive SUCRALFATE 1 GM ORAL TABLET 1 four times a day to coat the stoma ch SUCRALFATE 1 GM ORAL TABLET 436007 SUCRALFATE Inac tive GABAPENTIN 300 MG ORAL CAPSULE 1 three times a day 201 12/03/26 GABAPENTIN 300 MG ORAL CAPSULE 418144 GABAPENTIN Inactive ZITHROMAX Z-ISAIAS 250 MG ORAL TABLET Take two tablets to day and then 1 tablet daily for 4 days ZITHROMAX Z-ISAIAS 250 MG ORAL TAB LET 524491 AZITHROMYCIN Inactive Immunizations Vaccine Administration Date Value Standard Floyd cription pneumococcal immunization administered Pneumovax 23 [CVX33] pneumococcal polysaccharide vaccine, 23 valent Seasonal influenza vaccine, injectable, containing preservative, for > 3 years old (Afluria, FluLaval, Fluzone, Fluvirin, Fluarix, Agriflu(>= 18 yo)) Fluzone (>3 yrs.) [[id number]] Influenza, seasonal, inject able Seasonal influenza vaccine, injectable, containing preservative, for > 3 years old (Afluria, FluLaval, Fluzone, Fluvirin, Fluarix, Agriflu(>= 18 yo)) Fluzone (>3 yrs.) [DSP989] Influenza, seasonal, inject able Vital Signs Date [...] - Chem istry sodium, serum 139 mmol/L 891-824 3893/10/03 potassium, serum 4.7 mmol/L 3.5-5.2 chloride, serum 98 mmol/L 98-107 carbon dioxide, venous blood 28.7 mmol/L 21.0-32 .0 blood glucose 218 mg/dL 65-110 calcium, serum 9.8 mg/dL 8.5-10.1 urea nitrogen, blood 19 mg/dL 7-18 creatinine, serum 1.68 mg/dL 0.60-1.30 Lab Report: Basic Metabolic Panel, HGBA1 C - Chemistry sodium, serum 143 mmol/L 763-472 6463/06/19 potassium, serum 5.9 mmol/L 3.5-5.2 chloride, serum 105 mmol/L 98-107 carbon dioxide, venous blood 30.2 mmol/L 21.0-32 .0 blood glucose 189 mg/dL 65-110 calcium, serum 9.7 mg/dL 8.5-10.1 urea nitrogen, blood 37 mg/dL 7-18 creatinine, serum 2.11 mg/dL 0.55-1.30 hemoglobin A1C, blood, as % of total hemoglobin 8.2 % 4.3-6.0 Lab Report: CBC, Renal Panel - Chemistry sodium, serum 142 mmol/L 020-235 4447/08/11 potassium, serum 4.8 mmol/L 3.5-5.2 chloride, serum [...] (L) - Chemistry cholesterol, serum 209 mg/dL 038-139 5310/12/27 triglyceride, serum, fasting 329 mg/dL 30-200 HDL cholesterol, serum 56 mg/dL 32-60 LDL cholesterol, serum 87 mg/dL 0-130 TSH 3.60 m[iU]/mL 0.36-3.74 Encounters Code Encounter Date Provider Facility CPT-60964 Level 4 Est. Patient 16:21:19 CAP CUTTER Baltazar Childers MD [facility] CPT-59848 Level 4 Est. Patient 12:25:11 CDT Baltazar Childers MD [facility]-97954 Level 4 Est. Patient 14:22:31 CDT Baltazar Childers MD [facility]-61942 Level 4 Est. Patient 15:44:38 CDT Shonnajean Parker APRN [facility]-41934 Level 4 Est. Patient 11:34:17 CDT Baltazar Childers MD [facility]-21739 Level 3 Est. Patient 16:40:40 CDT Baltazar Childers MD [facility]-29770 Level 4 Est. Patient 10:41:24 CDT Baltazar Childers MD [facility]-80225 Level 4 Est. Patient 16:01:48 CDT Baltazar Childers MD [facility]-17445 Level 4 Est. Patient 16:54:07 CAP CUTTER Baltazar Childers MD [facility]-85546 Level 4 Est. Patient 15:42:12 CDT Baltazar Childers MD [facility] CPT-88584 Level 4 Est. Patient 11:29:55 CDT Baltazar Childers MD [facility]-74362 Level 4 Est. Patient 14:15:19 CDT Baltazar Childers MD [facility]-51242 Level 4 Est. Patient 12:20:13 CDT Baltazar Childers MD [facility] CPT-82822 Level 4 Est. Patient 14:52:45 CAP CUTTER Baltazar Childers MD [facility] CPT-85059 Level 4 Est. Patient 14:18:34 CAP CUTTER Baltazar Childers MD [facility]-61531 Level 4 Est. Patient 15:18:29 CDT Baltazar Childers MD [facility]-11137 Level 3 Est. Patient 12:45:34 CDT Baltazar Childers MD [facility] CPT-48947 Level 3 Est. Patient 10:10:11 CDT Baltazar Childers MD [facility] CPT-87477 Level 3 Est. Patient 14:07:50 CDT Baltazar Childers MD [facility] CPT-91385 Level 4 Est. Patient 12:26:10 CAP CUTTER Baltazar Childers MD [facility] CPT-02612 Level 4 Est. Patient 14:45:38 CDT Baltazar Childers MD [facility] CPT-09312 Level 4 New Patient 12:30:48 CDT Baltazar hinton MD [facility] Procedures Code Procedure Name Date Entry Date Standard Desc ription CPT-08316 First Vx - Ix admin via ID I M or jet injects without counseling by physician 13:08:59 CDT CPT-73308 Fluzone Quadrivalent Intramuscular Suspe nsion 0.5 ML 13:08:59 CDT CPT-04003 Venipuncture Draw Fee 12:04:12 CDT CPT-16305 Lipid - LAB USE ONLY 17:39:15 CAP CUTTER 9 CPT-78023 HGBA1C - LAB USE ONLY 17:39:15 CAP CUTTER CPT-28367 CMP - LAB USE ONLY 17:39:14 CAP CUTTER CPT-66839 Venipuncture Draw Fee 17:39:14 CAP CUTTER CPT-32261 First Vx - Ix admin via ID I M or jet injects without counseling by physician 16:55:17 CAP CUTTER CPT-72730 Fluzone Quadrivalent Intramuscular Suspe nsion 0.5 ML 16:55:17 CAP CUTTER CPT-83620 Renal Panel - LAB USE ONLY 17:39:20 CDT 201 10/31/07 CPT-37063 CBC - LAB USE ONLY 17:39:20 CDT CPT-15612 Venipuncture Draw Fee 17:39:20 CDT CPT-44840 Venipuncture Draw Fee 14:33:30 CDT CPT-44163 Renal Panel - LAB USE ONLY 14:33:30 CDT 201 10/31/07 CPT-54438 CBC - LAB USE ONLY 14:33:29 CDT CPT-02495 Venipuncture Draw Fee 14:50:21 CAP CUTTER CPT-57455 Immunization Single Admin 17:35:35 CDT 2014 CPT-63841 Fluzone Quadrivalent preservative free ( >=3yrs.) 17:35:35 CDT CPT-86803 Venipuncture Draw Fee 12:10:27 CAP CUTTER CPT-23880 Fluzone Quadrivalent Intramuscular Suspe nsion 0.5 ML 10:49:13 CDT CPT-58302 First Vx Component - Ix admi n via ID IM or jet inj without physician counseling 15:17:19 CAP CUTTER CPT-01549 Pneumovax 23 15:17:19 CAP CUTTER CPT-97102 Pneumovax 14:52:45 CAP CUTTER CPT-60385 Venipuncture Draw Fee 14:06:30 CAP CUTTER CPT-000 Give Appropriate Flu Vaccine 14:18:34 CAP CUTTER 2 CPT-64586 Administration single or combination vac cine inc oral 14:46:00 CAP CUTTER CPT-69036 Influenza split virus > age 3 14:46:00 CAP CUTTER CPT-OV Office Visit 19:13:16 CDT CPT-59684 Zostavax 18:41:56 CDT CPT-92976 Administration single or combination vac cine inc oral 12:56:39 CDT CPT-83128 Zoster Vaccine (Zostavax) 12:56:39 CDT 2012 CPT-94366 Venipuncture Draw Fee 10:58:57 CDT CPT-89031 Sono pelvis non OB uterus ovaries cervix 17:45:04 CDT CPT-31196 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
--- OUTSIDE RECORDS SUMMARY | 2019-10-27 13:06 | XMS REPORT | Clinical Summary ---
Author Author Abhishek, Elba Lance [facility] Address Unknown Phone Unavailable Allergies, 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 CRAS Benign neoplasm of colon PERIPHERAL NEUROPATHY 356.9 [...] y atherosclerosis of unspecified type of vessel, bois forte or graft OTH NONSPC ABN FINDNG RAD&OTH [...] MISC Test twice a day LANCET S 71527486499 Active Baltazar Childers MD Active TRUEDRAW LANCING DEVICE MISC Test twice a day L ANCET DEVICES 86095378714 Active Baltazar Childers MD Active TRUETRACK TEST STRP Test twice a day GLUCOSE BLOO D 87993906074 Active Baltazar Childers MD Active TRUETRACK BLOOD GLUCOSE W/DEVICE KIT Test twice a day BLOOD GLUCOSE MONITORING SUPPL 92044437848 Active Bella Suarez APRN Active HYDROCODONE-ACETAMINOPHEN 7.5-325 MG TABS Take 1 tab every 6-8 hour s PRN HYDROCODONE-ACETAMINOPHEN 10799437621 Active Baltazar Childers MD Active NORTRIPTYLINE HCL 50 MG CAPS 1 every night for neuropathy 4 NORTRIPTYLINE HCL 94567485974 Active Bella Suarez APRN Active GABAPENTIN 300 MG CAPS 1 three times a day GABAPE NTIN 19572769403 Active Baltazar Childers MD Active GABAPENTIN 300 MG CAPS 1 po qd x 2 days, then 1 po BID x 2 d ays, then 1 po TID GABAPENTIN 06599974379 No Longer Active Baltazar silverman MD Active TRAMADOL HCL 50 MG TABS 1 twice a day as needed for pain TRAMADOL HCL 55423002600 Active Baltazar Childers MD Active NAPROXEN 500 MG TABS 1 tablet by mouth twice daily NAPROXEN 62716029158 No Longer Active Baltazar Childers MD Active PROAIR HFA 108 (90 BASE) MCG/ACT AERS 2 puffs four times a d ay as needed ALBUTEROL SULFATE 17971925159 Active Baltazar Childers MD Active DEPO-TESTOSTERONE 200 MG/ML OIL as directed RUFINO TOSTERONE CYPIONATE 01381115082 No Longer Active Baltazar Childers MD Active LIPITOR 20 MG TABS Take one by mouth daily in evening ATORVASTATIN CALCIUM 04966101643 No Longer Active Baltazar Childers MD Activ e CRESTOR 10 MG TABS 1 by mouth every day R OSUVASTATIN CALCIUM 86056174239 No Longer Active Baltazar Childers MD Activ e PHENTERMINE HCL 37.5 MG TABS Take one by mouth daily 2 PHENTERMINE HCL 35335476109 No Longer Active Baltazar Childers MD Activ e ROBAXIN-750 750 MG TABS Take one by mouth daily ME THOCARBAMOL 55839467775 Active Baltazar Childers MD Active TIZANIDINE HCL 4 MG TABS 1 daily as needed for muscle spasm 2011 TIZANIDINE HCL 95343306518 No Longer Active Dawna Salazar RN Active [employer] ULTRA BLUE STRP Test twice a day GLUCO SE BLOOD 34610817514 Active Baltazar Childers MD Active [id number]-MXZP-OSPMXJAC 50-325-40 MG TABS 1 four time s a day as needed for heacache RUHYFCILLH-XMYZ-[id number] 71478522946 Active Baltazar Childers MD Active SUMATRIPTAN SUCCINATE 100 MG TABS 1 tablet by mouth at onset of migraine as needed SUMATRIPTAN SUCCINATE 84979894312 Active Baltazar barron MD Active LORATADINE 10 MG TABS Take one by mouth daily LORATADINE 93524954211 Active Baltazar Childers MD Active FUROSEMIDE 40 MG TABS Take one by mouth daily FUROSEMIDE 23899065386 Active Baltazar Childers MD Active LISINOPRIL 20 MG TABS Take one by mouth daily at bedtime LISINOPRIL 08029136410 Active Bella Suarez APRN Active OMEPRAZOLE 20 MG CPDR Take one by mouth daily OMEPRAZOLE 08536227340 Active Baltazar Childers MD Active HYDROXYZINE HCL 25 MG TABS Take one by mouth daily HYDROXYZINE HCL 34517562775 Active Baltazar Childers MD Active GLIPIZIDE 10 MG TABS 1 tablet by mouth twice daily GLIPIZIDE 21859531340 Active Baltazar Childers MD Active ALPRAZOLAM 1 MG TABS 1 tablet by mouth daily at bedtime for restles s leg ALPRAZOLAM 19031710592 Active Baltazar Childers MD Active METFORMIN HCL 1000 MG TABS Take one by mouth twice daily METFORMIN HCL 02057890237 Active Baltazar Childers MD Active TIZANIDINE HCL 4 MG TABS 1 daily as needed for muscle spasm 2011 TIZANIDINE HCL 4 MG TABS 253261 TIZANIDINE HCL Inactiv e PHENTERMINE HCL 37.5 MG TABS Take one by mouth daily 2 PHENTERMINE HCL 37.5 MG TABS 608356 PHENTERMINE HCL Inactive CRESTOR 10 MG TABS 1 by mouth every day C RESTOR 10 MG TABS ROSUVASTATIN CALCIUM Inactive LIPITOR 20 MG TABS Take one by mouth daily in evening LIPITOR 20 MG TABS 951773 ATORVASTATIN CALCIUM Inactive DEPO-TESTOSTERONE 200 MG/ML OIL as directed 8 DEPO-TESTOSTERONE 200 MG/ML OIL 569248 TESTOSTERONE CYPIONATE Inactive NAPROXEN 500 MG TABS 1 tablet by mouth twice daily 201 07/27/22 NAPROXEN 500 MG TABS 107380 NAPROXEN Inactive GABAPENTIN 300 MG CAPS 1 po qd x 2 days, then 1 po BID x 2 d ays, then 1 po TID GABAPENTIN 300 MG CAPS 531315 GABAPENTIN Inact amie Immunizations Vaccine Administration Date Value Standard Floyd cription pneumococcal immunization administered Pneumovax 23 [CVX33] pneumococcal polysaccharide vaccine, 23 valent Seasonal influenza vaccine, injectable, containing preservative, for > 3 years old (Afluria, FluLaval, Fluzone, Fluvirin, Fluarix, Agriflu(>= 18 yo)) Fluzone (>3 yrs.) [EQF158] Influenza, seasonal, inject able Seasonal influenza vaccine, injectable, containing preservative, for > 3 years old (Afluria, FluLaval, Fluzone, Fluvirin, Fluarix, Agriflu(>= 18 yo)) Fluzone (>3 yrs.) [KIP680] Influenza, seasonal, inject able Vital Signs Date [...] Panel - Chemistry sodium, serum 139 mmol/L 683-748 6820/01/20 potassium, serum 5.3 mmol/L 3.5-5.2 chloride, serum [...] mg/g mg/g{creat} 0-29 cholesterol, serum 319 mg/dL 789-982 8450/08/21 triglyceride, serum, fasting 546 mg/dL 30-200 HDL cholesterol, serum 39 mg/dL 32-96 LDL cholesterol, serum 167.00 mg/dL 5.00-130.00 hemoglobin A1C, blood, as % of total hemoglobin 7.7 % 4.3-6.0 sodium, serum 138 mmol/L 088-326 9665/08/21 potassium, serum 4.3 mmol/L 3.5-5.2 chloride, serum [...] 0-19 Encounters Code Encounter Date Provider Facility CPT-67429 Level 4 Est. Patient 14:15:19 CDT Baltazar Childers MD [facility] CPT-24895 Level 4 Est. Patient 12:20:13 CDT Baltazar Childers MD [facility] CPT-45053 Level 4 Est. Patient 14:52:45 TOWER WATCHMAN Baltazar Childers MD [facility] CPT-28824 Level 4 Est. Patient 14:18:34 TOWER WATCHMAN Baltazar Childers MD [facility] CPT-14716 Level 4 Est. Patient 15:18:29 CDT Baltazar Childers MD [facility] CPT-73198 Level 3 Est. Patient 12:45:34 CDT Baltazar Childers MD [facility] CPT-74441 Level 3 Est. Patient 10:10:11 CDT Baltazar Childers MD [facility] CPT-89589 Level 3 Est. Patient 14:07:50 CDT Baltazar Childers MD [facility] CPT-55290 Level 4 Est. Patient 12:26:10 TOWER WATCHMAN Baltazar Childers MD [facility] CPT-24416 Level 4 Est. Patient 14:45:38 CDT Baltazar Childers MD [facility] CPT-44488 Level 4 New Patient 12:30:48 CDT Baltazar hinton MD [facility] Procedures Code Procedure Name Date Entry Date Standard Desc ription CPT-30791 Venipuncture Draw Fee 12:10:27 TOWER WATCHMAN CPT-00085 Fluzone Quadrivalent Intramuscular Suspe nsion 0.5 ML 10:49:13 CDT CPT-28879 First Vx Component - Ix admi n via ID IM or jet inj without physician counseling 15:17:19 TOWER WATCHMAN CPT-38995 Pneumovax 23 15:17:19 TOWER WATCHMAN CPT-88945 Pneumovax 14:52:45 TOWER WATCHMAN CPT-68760 Venipuncture Draw Fee 14:06:30 TOWER WATCHMAN CPT-000 Give Appropriate Flu Vaccine 14:18:34 TOWER WATCHMAN 2 CPT-85830 Administration single or combination vac cine inc oral 14:46:00 TOWER WATCHMAN CPT-43538 Influenza split virus > age 3 14:46:00 TOWER WATCHMAN CPT-OV Office Visit 19:13:16 CDT CPT-24157 Zostavax 18:41:56 CDT CPT-40526 Administration single or combination vac cine inc oral 12:56:39 CDT CPT-95278 Zoster Vaccine (Zostavax) 12:56:39 CDT 2012 CPT-62369 Venipuncture Draw Fee 10:58:57 CDT CPT-52812 Sono pelvis non OB uterus ovaries cervix 17:45:04 CDT CPT-49093 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
--- OUTSIDE RECORDS SUMMARY | 2019-10-27 13:07 | XMS REPORT | Clinical Summary ---
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 SYNTHROID 0.1 MG TAB 1 tablet by mouth daily LE VOTHYROXINE SODIUM 51051886602 Active Shonna Parker APRN Active GLIPIZIDE 10 MG TAB take 2 tablets twice daily GLIPIZIDE 25912572950 Active Baltazar Childers MD Active SUCRALFATE 1 GM TABS 1 four times a day to coat the stomach 2015 SUCRALFATE 11631336274 No Longer Active Baltazar Childers MD Active PEN NEEDLES 31G X 6 MM MISC use 1 daily INSULIN PEN NEEDLE 29042179184 Active Gato Rae MD Active TOUJEO SOLOSTAR 300 UNIT/ML SC SOPN 10 units SC daily INSULIN GLARGINE 84265162031 No Longer Active Martita Herbert ARGUETA Active LANTUS SOLOSTAR 100 UNIT/ML SC SOPN 10 units SC daily INSULIN GLARGINE 75668968355 Active KENDALL Juarez Active NAPROXEN SODIUM 220 MG ORAL TABS 1 three times a day as needed 2 NAPROXEN SODIUM 32991485683 No Longer Active Baltazar Childers MD Active ATORVASTATIN CALCIUM 20 MG ORAL TABS Take 1 tab daily ATORVASTATIN CALCIUM 70872029132 Active Baltazar Childers MD Active FUROSEMIDE 40 MG TABS Take one by mouth daily FUROSEMIDE 20686484062 Active Baltazar Childers MD Active LISINOPRIL 20 MG TABS Take one by mouth daily at bedtime LISINOPRIL 02948732456 No Longer Active Baltazar Childers MD Active ONETOUCH ULTRA BLUE STRP Test twice a day GLUCO SE BLOOD 32603014775 No Longer Active Baltazar Childers MD Active TRUEPLUS LANCETS 33G MISC Test twice a day LANCET S 56238168242 Active KENDALL Juarez Active TRUEDRAW LANCING DEVICE MISC Test twice a day L ANCET DEVICES 85842010202 Active Baltazar Childers MD Active TRUETRACK TEST STRP Test twice a day GLUCOSE BLOO D 75096703599 Active KENDALL Juarez Active TRUETRACK BLOOD GLUCOSE W/DEVICE KIT Test twice a day BLOOD GLUCOSE MONITORING SUPPL 81505484508 Active Baltazar Childers MD Activ e HYDROCODONE-ACETAMINOPHEN 7.5-325 MG TABS Take 1 tab every 6-8 hour s PRN HYDROCODONE-ACETAMINOPHEN 52096677882 Active Baltazar Childers MD Active NORTRIPTYLINE HCL 50 MG CAPS 1 every night for neuropathy 4 NORTRIPTYLINE HCL 06803648554 Active Baltazar Childers MD Acti ve GABAPENTIN 300 MG CAPS 1 three times a day GABAPE NTIN 28703686159 Active Baltazar Childers MD Active GABAPENTIN 300 MG CAPS 1 po qd x 2 days, then 1 po BID x 2 d ays, then 1 po TID GABAPENTIN 48582817190 No Longer Active Baltazar silverman MD Active TRAMADOL HCL 50 MG TABS 1 twice a day as needed for pain TRAMADOL HCL 78169269758 Active Baltazar Childers MD Active NAPROXEN 500 MG TABS 1 tablet by mouth twice daily NAPROXEN 46517368275 No Longer Active Baltazar Childers MD Active PROAIR HFA 108 (90 BASE) MCG/ACT AERS 2 puffs four times a d ay as needed ALBUTEROL SULFATE 66833578800 Active Baltazar Childers MD Active DEPO-TESTOSTERONE 200 MG/ML OIL as directed RUFINO TOSTERONE CYPIONATE 21369674121 No Longer Active Baltazar Childers MD Active LIPITOR 20 MG TABS Take one by mouth daily in evening ATORVASTATIN CALCIUM 82989507802 No Longer Active Baltazar Childers MD Activ e CRESTOR 10 MG TABS 1 by mouth every day R OSUVASTATIN CALCIUM 15187709051 No Longer Active Baltazar Childers MD Activ e PHENTERMINE HCL 37.5 MG TABS Take one by mouth daily 2 PHENTERMINE HCL 13898872680 No Longer Active Baltazar Childesr MD Activ e ROBAXIN-750 750 MG TABS Take one by mouth daily ME THOCARBAMOL 37169089902 Active Baltazar Childers MD Active TIZANIDINE HCL 4 MG TABS 1 daily as needed for muscle spasm 2011 TIZANIDINE HCL 67404605407 No Longer Active Dawna Salazar RN Active [id number] 50-325-40 MG TABS 1 four time s a day as needed for heacache [id number] 16643745586 Active Baltazar Childers MD Active SUMATRIPTAN SUCCINATE 100 MG TABS 1 tablet by mouth at onset of migraine as needed SUMATRIPTAN SUCCINATE 56850341890 Active Shonna richey APRN Active LORATADINE 10 MG TABS Take one by mouth daily LORATADINE 29627210214 Active Bethrenetta Carr KENDALL Active OMEPRAZOLE 20 MG CPDR Take one by mouth daily OMEPRAZOLE 04400743841 Active Baltazar Childers MD Active HYDROXYZINE HCL 25 MG TABS Take one by mouth daily HYDROXYZINE HCL 98872986476 Active Baltazar Childers MD Active ALPRAZOLAM 1 MG TABS 1 tablet by mouth daily at bedtime for restles s leg ALPRAZOLAM 72937710127 Active Baltazar Childers MD Active METFORMIN HCL 1000 MG TABS Take one by mouth twice daily METFORMIN HCL 60990176201 Active Baltazar Childers MD Active TIZANIDINE HCL 4 MG TABS 1 daily as needed for muscle spasm 2011 TIZANIDINE HCL 4 MG TABS 676030 TIZANIDINE HCL Inactiv e PHENTERMINE HCL 37.5 MG TABS Take one by mouth daily 2 PHENTERMINE HCL 37.5 MG TABS 478693 PHENTERMINE HCL Inactive CRESTOR 10 MG TABS 1 by mouth every day C RESTOR 10 MG TABS 775693 ROSUVASTATIN CALCIUM Inactive LIPITOR 20 MG TABS Take one by mouth daily in evening LIPITOR 20 MG TABS 040530 ATORVASTATIN CALCIUM Inactive DEPO-TESTOSTERONE 200 MG/ML OIL as directed 8 DEPO-TESTOSTERONE 200 MG/ML OIL 244395 TESTOSTERONE CYPIONATE Inactive NAPROXEN 500 MG TABS 1 tablet by mouth twice daily 201 07/27/22 NAPROXEN 500 MG TABS 403053 NAPROXEN Inactive GABAPENTIN 300 MG CAPS 1 po qd x 2 days, then 1 po BID x 2 d ays, then 1 po TID GABAPENTIN 300 MG CAPS 913962 GABAPENTIN Inact amie ONETOUCH ULTRA BLUE STRP Test twice a day ONETOUCH ULTRA BLUE STRP GLUCOSE BLOOD Inactive NAPROXEN SODIUM 220 MG ORAL TABS 1 three times a day as needed 2 NAPROXEN SODIUM 220 MG ORAL TABS 537999 NAPROXEN SODIUM Inactive TOUJEO SOLOSTAR 300 UNIT/ML SC SOPN 10 units SC daily TOUJEO SOLOSTAR 300 UNIT/ML SC SOPN INSULIN GLARGINE Inac tive SUCRALFATE 1 GM TABS 1 four times a day to coat the stomach 2015 SUCRALFATE 1 GM TABS 025957 SUCRALFATE Inactive Immunizations Vaccine Administration Date Value Standard Floyd cription pneumococcal immunization administered Pneumovax 23 [CVX33] pneumococcal polysaccharide vaccine, 23 valent Seasonal influenza vaccine, injectable, containing preservative, for > 3 years old (Afluria, FluLaval, Fluzone, Fluvirin, Fluarix, Agriflu(>= 18 yo)) Fluzone (>3 yrs.) [XWZ399] Influenza, seasonal, inject able Seasonal influenza vaccine, injectable, containing preservative, for > 3 years old (Afluria, FluLaval, Fluzone, Fluvirin, Fluarix, Agriflu(>= 18 yo)) Fluzone (>3 yrs.) [LTI036] Influenza, seasonal, inject able Vital Signs Date [...] C - Chemistry sodium, serum 143 mmol/L 120-741 8091/06/19 potassium, serum 5.9 mmol/L 3.5-5.2 chloride, serum [...] Panel - Chemistry sodium, serum 143 mmol/L 718-180 5473/12/19 carbon dioxide, venous blood 32.5 mmol/L 21.0-32 .0 potassium, serum 4.9 mmol/L 3.5-5.2 chloride, serum 101 mmol/L 98-107 blood glucose 129 mg/dL 65-110 urea nitrogen, blood 18 mg/dL 7-18 creatinine, serum 1.79 mg/dL 0.55-1.30 alanine aminotransferase (SGPT), serum 34 U/L 12-78 aspartate aminotransferase (SGOT), serum 26 U/L 15-37 calcium, serum 8.9 mg/dL 8.5-10.1 bilirubin, serum, total 0.30 mg/dL 0.00-1.00 cholesterol, serum 214 mg/dL 949-863 9924/12/19 triglyceride, serum, fasting 351 mg/dL 30-200 HDL [...] Panel - Chemistry sodium, serum 141 mmol/L 569-259 1029/08/08 potassium, serum 4.9 mmol/L 3.5-5.2 chloride, serum 101 mmol/L 98-107 carbon dioxide, venous blood 34.1 mmol/L 21.0-32 .0 creatinine, serum 1.98 mg/dL 0.55-1.30 blood glucose 193 mg/dL 65-110 urea nitrogen, blood 30 mg/dL 7-18 calcium, serum 9.8 mg/dL 8.5-10.1 Encounters Code Encounter Date Provider Facility CPT-65291 Level 4 Est. Patient 14:22:31 CDT Baltazar Childers MD [facility] CPT-67631 Level 4 Est. Patient 15:44:38 [facility] 4 Est. Patient 11:34:17 CDT Baltazar Childers MD [facility] CPT-81193 Level 3 Est. Patient 16:40:40 CDT Baltazar Childers MD [facility] CPT-32057 Level 4 Est. Patient 10:41:24 CDT Baltazar Childers MD [facility]-76947 Level 4 Est. Patient 16:01:48 CDT Baltazar Childers MD [facility] CPT-92215 Level 4 Est. Patient 16:54:07 MEDICAL SUPERVISOR Baltazar Childers MD [facility] CPT-15562 Level 4 Est. Patient 15:42:12 CDT Baltazar Childers MD [facility] CPT-90494 Level 4 Est. Patient 11:29:55 CDT Baltazar Childers MD [facility] CPT-91760 Level 4 Est. Patient 14:15:19 CDT Baltazar Childers MD [facility] CPT-59514 Level 4 Est. Patient 12:20:13 CDT Baltazar Childers MD [facility] CPT-31747 Level 4 Est. Patient 14:52:45 MEDICAL SUPERVISOR Baltazar Childers MD [facility] CPT-11167 Level 4 Est. Patient 14:18:34 MEDICAL SUPERVISOR Baltazar Childers MD [facility] CPT-88851 Level 4 Est. Patient 15:18:29 CDT Baltazar Childers MD [facility] CPT-88791 Level 3 Est. Patient 12:45:34 CDT Baltazar Childers MD [facility] CPT-16237 Level 3 Est. Patient 10:10:11 CDT Baltazar Childers MD [facility] CPT-60575 Level 3 Est. Patient 14:07:50 CDT Baltazar Childers MD [facility] CPT-20680 Level 4 Est. Patient 12:26:10 MEDICAL SUPERVISOR Baltazar Childers MD [facility] CPT-85175 Level 4 Est. Patient 14:45:38 CDT Baltazar Childers MD [facility] CPT-63825 Level 4 New Patient 12:30:48 CDT Baltazar hinton MD [facility] Procedures Code Procedure Name Date Entry Date Standard Desc ription CPT-73304 Lipid - LAB USE ONLY 17:39:15 MEDICAL SUPERVISOR 9 CPT-70409 HGBA1C - LAB USE ONLY 17:39:15 MEDICAL SUPERVISOR CPT-11319 CMP - LAB USE ONLY 17:39:14 MEDICAL SUPERVISOR CPT-28242 Venipuncture Draw Fee 17:39:14 MEDICAL SUPERVISOR CPT-83306 First Vx - Ix admin via ID I M or jet injects without counseling by physician 16:55:17 MEDICAL SUPERVISOR CPT-85520 Fluzone Quadrivalent Intramuscular Suspe nsion 0.5 ML 16:55:17 MEDICAL SUPERVISOR CPT-95720 Renal Panel - LAB USE ONLY 17:39:20 CDT 201 10/31/07 CPT-02199 CBC - LAB USE ONLY 17:39:20 CDT CPT-95926 Venipuncture Draw Fee 17:39:20 CDT CPT-38172 Venipuncture Draw Fee 14:33:30 CDT CPT-12262 Renal Panel - LAB USE ONLY 14:33:30 CDT 201 10/31/07 CPT-34055 CBC - LAB USE ONLY 14:33:29 CDT CPT-34355 Venipuncture Draw Fee 14:50:21 MEDICAL SUPERVISOR CPT-69418 Immunization Single Admin 17:35:35 CDT 2014 CPT-07383 Fluzone Quadrivalent preservative free ( >=3yrs.) 17:35:35 CDT CPT-74469 Venipuncture Draw Fee 12:10:27 MEDICAL SUPERVISOR CPT-01113 Fluzone Quadrivalent Intramuscular Suspe nsion 0.5 ML 10:49:13 CDT CPT-48890 First Vx Component - Ix admi n via ID IM or jet inj without physician counseling 15:17:19 MEDICAL SUPERVISOR CPT-24521 Pneumovax 23 15:17:19 MEDICAL SUPERVISOR CPT-48793 Pneumovax 14:52:45 MEDICAL SUPERVISOR CPT-96902 Venipuncture Draw Fee 14:06:30 MEDICAL SUPERVISOR CPT-000 Give Appropriate Flu Vaccine 14:18:34 MEDICAL SUPERVISOR 2 CPT-84828 Administration single or combination vac cine inc oral 14:46:00 MEDICAL SUPERVISOR CPT-85206 Influenza split virus > age 3 14:46:00 MEDICAL SUPERVISOR CPT-OV Office Visit 19:13:16 CDT CPT-70275 Zostavax 18:41:56 CDT CPT-23183 Administration single or combination vac cine inc oral 12:56:39 CDT CPT-31245 Zoster Vaccine (Zostavax) 12:56:39 CDT 2012 CPT-10840 Venipuncture Draw Fee 10:58:57 CDT CPT-66082 Sono pelvis non OB uterus ovaries cervix 17:45:04 CDT CPT-24872 Sono retroperitoneal complete kidneys an d bladder 17:14:36 CDT CPT-OV Office Visit 14:59:38 MEDICAL SUPERVISOR CPT-J1070 Depo Testosterone 100 mg 14:50:13 CDT 03/05 CPT-13937 Abx/Therapy Injection 14:50:13 CDT CPT-96669 Administration single or combination vac cine inc oral 14:34:43 CDT CPT-64868 Influenza split virus > age 3 14:34:43 CDT CPT-J1070 Depo Testosterone 100 mg 17:37:13 CDT 01/11 CPT-20552 Abx/Therapy Injection 17:37:13 CDT CPT-24578 Venipuncture Draw Fee 16:30:13 CDT CPT-94163 Venipuncture Draw Fee 16:29:43 CDT CPT-J1070 Depo Testosterone 100 mg 14:45:38 CDT 01/11
--- OUTSIDE RECORDS SUMMARY | 2019-10-27 13:07 | XMS REPORT | Clinical Summary ---
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 Benign neoplasm of colon PERIPHERAL NEUROPATHY 356.9 [...] three times a day 201 12/03/26 GABAPENTIN 65269350154 No Longer Active Baltazar Childers MD Activ e LISINOPRIL 20 MG ORAL TABLET 1 tablet by mouth daily at night 2016 LISINOPRIL 14114128278 Active Baltazar Childers MD Active ZITHROMAX Z-ISAIAS 250 MG ORAL TABLET Take two tablets to day and then 1 tablet daily for 4 days AZITHROMYCIN 81267577750 No Longer A ctive Baltazar Childers MD Active LANTUS SOLOSTAR 100 UNIT/ML SUBCUTANEOUS SOLUTION PEN- INJECTOR 30 units SC daily INSULIN GLARGINE 67263162326 Active Baltazar Childers MD Active AMLODIPINE BESYLATE 5 MG ORAL TABLET 1 tab daily for HTN AMLODIPINE BESYLATE 67273746481 Active Baltazar Childers MD Active SYNTHROID 100 MCG ORAL TABLET 1 tablet by mouth daily LEVOTHYROXINE SODIUM 10418321453 Active Baltazar Childers MD Active GLIPIZIDE 10 MG ORAL TABLET take 2 tablets twice daily GLIPIZIDE 84333278379 Active Baltazar Childers MD Active SUCRALFATE 1 GM ORAL TABLET 1 four times a day to coat the stoma ch SUCRALFATE 66842689474 No Longer Active Baltazar Childers MD Active PEN NEEDLES 31G X 6 MM use 1 daily INSULIN PEN NE EDLE 71799355216 Active KENDALL Juarez Active CELINA POWERSOSTNAKITA 300 UNIT/ML SUBCUTANEOUS SOLUTION PEN- INJECTOR 10 units SC daily INSULIN GLARGINE 24009175863 No Longer Active Rola Godinez RMA Active NAPROXEN SODIUM 220 MG ORAL TABLET 1 three times a day as needed NAPROXEN SODIUM 29586610760 No Longer Active Baltazar Childers MD Active ATORVASTATIN CALCIUM 20 MG ORAL TABLET Take 1 tab daily ATORVASTATIN CALCIUM 47262873099 Active Baltazar Childers MD A ctive FUROSEMIDE 40 MG ORAL TABLET Take one by mouth daily FUROSEMIDE 81164745126 Active Jessy Arellano LPN Active LISINOPRIL 20 MG ORAL TABLET Take one by mouth daily at bedtime LISINOPRIL 03566448908 No Longer Active Baltazar Childers MD Active ONETOUCH ULTRA BLUE IN VITRO STRIP Test twice a day 07/11/11 GLUCOSE BLOOD 11645833798 No Longer Active Baltazar Childers MD Acti ve TRUEPLUS LANCETS 33G Test twice a day LANCETS 0960571 2036 Active KENDALL Juarez Active TRUEDRAW LANCING DEVICE Test twice a day LANCET DEVICES 97800618690 Active Baltazar Childers MD Active TRUETRACK TEST IN VITRO STRIP Test twice a day GLUCOSE BLOOD 97976284747 Active KENDALL Juarez Active TRUETRACK BLOOD GLUCOSE w/Device KIT Test twice a day BLOOD GLUCOSE MONITORING SUPPL 29051690518 Active Baltazar Childers MD Activ e HYDROCODONE-ACETAMINOPHEN 7.5-325 MG ORAL TABLET Take 1 tab every 6-8 hours PRN HYDROCODONE-ACETAMINOPHEN 82703305807 Active Baltazar Nickerson MD Active NORTRIPTYLINE HCL 50 MG ORAL CAPSULE 1 every night for neuropathy 2 NORTRIPTYLINE HCL 02652619166 Active Baltazar Childers MD Acti ve GABAPENTIN 300 MG ORAL CAPSULE 1 po qd x 2 days, then 1 po BID x 2 days, then 1 po TID GABAPENTIN 06644929907 No Longer Active Baltazar Childers MD Active TRAMADOL HCL 50 MG ORAL TABLET 1 twice a day as needed for pain 201 07/27/28 TRAMADOL HCL 87055975856 Active Baltazar Childers MD Active NAPROXEN 500 MG ORAL TABLET 1 tablet by mouth twice daily NAPROXEN 79821063033 No Longer Active Baltazar Childers MD Active PROAIR HFA 108 (90 Base) MCG/ACT INHALATION AEROSOL SO LUTION 2 puffs four times a day as needed ALBUTEROL SULFATE 62484091889 Active Paul Childers MD Active DEPO-TESTOSTERONE 200 MG/ML INTRAMUSCULAR SOLUTION as directed TESTOSTERONE CYPIONATE 59377876948 No Longer Active Baltazar Childers MD Active LIPITOR 20 MG ORAL TABLET Take one by mouth daily in evening ATORVASTATIN CALCIUM 33002521062 No Longer Active Baltazar Childers MD Active CRESTOR 10 MG ORAL TABLET 1 by mouth every day ROSUVASTATIN CALCIUM 30130711718 No Longer Active Baltazar Childers MD Active PHENTERMINE HCL 37.5 MG ORAL TABLET Take one by mouth daily PHENTERMINE HCL 12378001035 No Longer Active Baltazar Childers MD Ac tive ROBAXIN-750 750 MG ORAL TABLET Take one by mouth daily METHOCARBAMOL 65355474161 Active Baltazar Childers MD Active TIZANIDINE HCL 4 MG ORAL TABLET 1 daily as needed for muscle spa sm TIZANIDINE HCL 86717279769 No Longer Active Dawna Salazar RN Active [id number] 50-325-40 MG ORAL TABLET 1 fo ur times a day as needed for heacache [id number] 13265289091 Active Baltazar Childers MD Active SUMATRIPTAN SUCCINATE 100 MG ORAL TABLET 1 tablet by m outh at onset of migraine as needed SUMATRIPTAN SUCCINATE 70306194440 Active Bertha Vazquez LPN Active LORATADINE 10 MG ORAL TABLET Take one by mouth daily LORATADINE 56355248484 Active Baltazar Childers MD Active OMEPRAZOLE 20 MG ORAL CAPSULE DELAYED RELEASE Take one by mouth jostin ly OMEPRAZOLE 06780701705 Active Baltazar Childers MD Active HYDROXYZINE HCL 25 MG ORAL TABLET Take one by mouth daily HYDROXYZINE HCL 63262973174 Active Baltazar Childers MD Active ALPRAZOLAM 1 MG ORAL TABLET 1 tablet [facility] AL[facility] 24470009841 Active Baltazar Childers MD Active METFORMIN HCL 1000 MG ORAL TABLET Take one by mouth twice daily METFORMIN HCL 07211031729 Active Baltazar Childers MD Active TIZANIDINE HCL 4 MG ORAL TABLET 1 daily as needed for muscle spa sm TIZANIDINE HCL 4 MG ORAL TABLET 844171 TIZANIDINE HCL Inactive PHENTERMINE HCL 37.5 MG ORAL TABLET Take one by mouth daily PHENTERMINE HCL 37.5 MG ORAL TABLET 028474 PHENTERMINE HCL Inac tive CRESTOR 10 MG ORAL TABLET 1 by mouth every day CRESTOR 10 MG ORAL TABLET 345064 ROSUVASTATIN CALCIUM Inactive LIPITOR 20 MG ORAL TABLET Take one by mouth daily in evening LIPITOR 20 MG ORAL TABLET 594282 ATORVASTATIN CALCIUM Inactive DEPO-TESTOSTERONE 200 MG/ML INTRAMUSCULAR SOLUTION as directed DEPO-TESTOSTERONE 200 MG/ML INTRAMUSCULAR SOLUTION 791846 RUFINO TOSTERONE CYPIONATE Inactive NAPROXEN 500 MG ORAL TABLET 1 tablet by mouth twice daily NAPROXEN 500 MG ORAL TABLET 602220 NAPROXEN Inactive GABAPENTIN 300 MG ORAL CAPSULE 1 po qd x 2 days, then 1 po BID x 2 days, then 1 po TID GABAPENTIN 300 MG ORAL CAPSULE 624949 GABAP ENTIN Inactive ONETOUCH ULTRA BLUE IN VITRO STRIP Test twice a day 07/11/11 ONETOUCH ULTRA BLUE IN VITRO STRIP GLUCOSE BLOOD Inact amie NAPROXEN SODIUM 220 MG ORAL TABLET 1 three times a day as needed NAPROXEN SODIUM 220 MG ORAL TABLET 610350 NAPROXEN SODI UM Inactive TOUJEO SOLOSTAR 300 UNIT/ML SUBCUTANEOUS SOLUTION PEN- INJECTOR 10 units SC daily TOUJEO SOLOSTAR 300 UNIT/ML SUBCUTANEOUS SOLUTION PEN-INJECTOR INSULIN GLARGINE Inactive SUCRALFATE 1 GM ORAL TABLET 1 four times a day to coat the stoma ch SUCRALFATE 1 GM ORAL TABLET 287585 SUCRALFATE Inac tive GABAPENTIN 300 MG ORAL CAPSULE 1 three times a day 201 12/03/26 GABAPENTIN 300 MG ORAL CAPSULE 829110 GABAPENTIN Inactive ZITHROMAX Z-ISAIAS 250 MG ORAL TABLET Take two tablets to day and then 1 tablet daily for 4 days ZITHROMAX Z-ISAIAS 250 MG ORAL TAB LET 768768 AZITHROMYCIN Inactive Immunizations Vaccine Administration Date Value Standard Floyd cription pneumococcal immunization administered Pneumovax 23 [CVX33] pneumococcal polysaccharide vaccine, 23 valent Seasonal influenza vaccine, injectable, containing preservative, for > 3 years old (Afluria, FluLaval, Fluzone, Fluvirin, Fluarix, Agriflu(>= 18 yo)) Fluzone (>3 yrs.) [[id number]] Influenza, seasonal, inject able Seasonal influenza vaccine, injectable, containing preservative, for > 3 years old (Afluria, FluLaval, Fluzone, Fluvirin, Fluarix, Agriflu(>= 18 yo)) Fluzone (>3 yrs.) [[id number]] Influenza, seasonal, inject able Vital Signs Date [...] - Chem istry sodium, serum 139 mmol/L 499-603 1685/10/03 potassium, serum 4.7 mmol/L 3.5-5.2 chloride, serum 98 mmol/L 98-107 carbon dioxide, venous blood 28.7 mmol/L 21.0-32 .0 blood glucose 218 mg/dL 65-110 calcium, serum 9.8 mg/dL 8.5-10.1 urea nitrogen, blood 19 mg/dL 7-18 creatinine, serum 1.68 mg/dL 0.60-1.30 Lab Report: Basic Metabolic Panel, HGBA1 C - Chemistry sodium, serum 143 mmol/L 710-229 7299/06/19 potassium, serum 5.9 mmol/L 3.5-5.2 chloride, serum 105 mmol/L 98-107 carbon dioxide, venous blood 30.2 mmol/L 21.0-32 .0 blood glucose 189 mg/dL 65-110 calcium, serum 9.7 mg/dL 8.5-10.1 urea nitrogen, blood 37 mg/dL 7-18 creatinine, serum 2.11 mg/dL 0.55-1.30 hemoglobin A1C, blood, as % of total hemoglobin 8.2 % 4.3-6.0 Lab Report: CBC, Renal Panel - Chemistry sodium, serum 142 mmol/L 547-647 9139/08/11 potassium, serum 4.8 mmol/L 3.5-5.2 chloride, serum [...] (L) - Chemistry cholesterol, serum 209 mg/dL 232-356 1629/12/27 triglyceride, serum, fasting 329 mg/dL 30-200 HDL cholesterol, serum 56 mg/dL 32-60 LDL cholesterol, serum 87 mg/dL 0-130 TSH 3.60 m[iU]/mL 0.36-3.74 Encounters Code Encounter Date Provider Facility CPT-51639 Level 4 Est. Patient 16:21:19 MAIL PROCESSING ASSOCIATE Baltazar Childers MD [facility] CPT-42484 Level 4 Est. Patient 12:25:11 CDT Baltazar Childers MD [facility]-62815 Level 4 Est. Patient 14:22:31 CDT Baltazar Childers MD [facility]-60337 Level 4 Est. Patient 15:44:38 CDT Shonnajean Parker APRN [facility]-84809 Level 4 Est. Patient 11:34:17 CDT Baltazar Childers MD [facility]-19460 Level 3 Est. Patient 16:40:40 CDT Baltazar Childers MD [facility]-22922 Level 4 Est. Patient 10:41:24 CDT Baltazar Childers MD [facility]-75894 Level 4 Est. Patient 16:01:48 CDT Baltazar Childers MD [facility]-73064 Level 4 Est. Patient 16:54:07 MAIL PROCESSING ASSOCIATE Baltazar Childers MD [facility]-10270 Level 4 Est. Patient 15:42:12 CDT Baltazar Childers MD [facility] CPT-52336 Level 4 Est. Patient 11:29:55 CDT Baltazar Childers MD [facility]-15280 Level 4 Est. Patient 14:15:19 CDT Baltazar Childers MD [facility]-75320 Level 4 Est. Patient 12:20:13 CDT Baltazar Childers MD [facility]-18589 Level 4 Est. Patient 14:52:45 MAIL PROCESSING ASSOCIATE Baltazar Childers MD [facility]-56221 Level 4 Est. Patient 14:18:34 MAIL PROCESSING ASSOCIATE Baltazar Childers MD [facility]-91625 Level 4 Est. Patient 15:18:29 CDT Baltazar Childers MD [facility]-80541 Level 3 Est. Patient 12:45:34 CDT Baltazar Childers MD [facility] CPT-31568 Level 3 Est. Patient 10:10:11 CDT Baltazar Childers MD [facility] CPT-02404 Level 3 Est. Patient 14:07:50 CDT Baltazar Childers MD [facility] CPT-25761 Level 4 Est. Patient 12:26:10 MAIL PROCESSING ASSOCIATE Baltazar Childers MD [facility] CPT-02029 Level 4 Est. Patient 14:45:38 CDT Baltazar Childers MD [facility] CPT-97136 Level 4 New Patient 12:30:48 CDT Baltazar hinton MD [facility] Procedures Code Procedure Name Date Entry Date Standard Desc ription CPT-05018 First Vx - Ix admin via ID I M or jet injects without counseling by physician 13:08:59 CDT CPT-31250 Fluzone Quadrivalent Intramuscular Suspe nsion 0.5 ML 13:08:59 CDT CPT-13462 Venipuncture Draw Fee 12:04:12 CDT CPT-89377 Lipid - LAB USE ONLY 17:39:15 MAIL PROCESSING ASSOCIATE 9 CPT-41604 HGBA1C - LAB USE ONLY 17:39:15 MAIL PROCESSING ASSOCIATE CPT-05885 CMP - LAB USE ONLY 17:39:14 MAIL PROCESSING ASSOCIATE CPT-44825 Venipuncture Draw Fee 17:39:14 MAIL PROCESSING ASSOCIATE CPT-38379 First Vx - Ix admin via ID I M or jet injects without counseling by physician 16:55:17 MAIL PROCESSING ASSOCIATE CPT-04795 Fluzone Quadrivalent Intramuscular Suspe nsion 0.5 ML 16:55:17 MAIL PROCESSING ASSOCIATE CPT-75519 Renal Panel - LAB USE ONLY 17:39:20 CDT 201 10/31/07 CPT-24892 CBC - LAB USE ONLY 17:39:20 CDT CPT-62036 Venipuncture Draw Fee 17:39:20 CDT CPT-52508 Venipuncture Draw Fee 14:33:30 CDT CPT-10095 Renal Panel - LAB USE ONLY 14:33:30 CDT 201 10/31/07 CPT-44451 CBC - LAB USE ONLY 14:33:29 CDT CPT-74422 Venipuncture Draw Fee 14:50:21 MAIL PROCESSING ASSOCIATE CPT-38648 Immunization Single Admin 17:35:35 CDT 2014 CPT-68226 Fluzone Quadrivalent preservative free ( >=3yrs.) 17:35:35 CDT CPT-62322 Venipuncture Draw Fee 12:10:27 MAIL PROCESSING ASSOCIATE CPT-76017 Fluzone Quadrivalent Intramuscular Suspe nsion 0.5 ML 10:49:13 CDT CPT-59680 First Vx Component - Ix admi n via ID IM or jet inj without physician counseling 15:17:19 MAIL PROCESSING ASSOCIATE CPT-77636 Pneumovax 23 15:17:19 MAIL PROCESSING ASSOCIATE CPT-08022 Pneumovax 14:52:45 MAIL PROCESSING ASSOCIATE CPT-11567 Venipuncture Draw Fee 14:06:30 MAIL PROCESSING ASSOCIATE CPT-000 Give Appropriate Flu Vaccine 14:18:34 MAIL PROCESSING ASSOCIATE 2 CPT-84627 Administration single or combination vac cine inc oral 14:46:00 MAIL PROCESSING ASSOCIATE CPT-45802 Influenza split virus > age 3 14:46:00 MAIL PROCESSING ASSOCIATE CPT-OV Office Visit 19:13:16 CDT CPT-72956 Zostavax 18:41:56 CDT CPT-75698 Administration single or combination vac cine inc oral 12:56:39 CDT CPT-83798 Zoster Vaccine (Zostavax) 12:56:39 CDT 2012 CPT-05639 Venipuncture Draw Fee 10:58:57 CDT CPT-78360 Sono pelvis non OB uterus ovaries cervix 17:45:04 CDT CPT-41760 Sono retroperitoneal complete kidneys an d bladder 17:14:36 CDT CPT-OV Office Visit 14:59:38 MAIL PROCESSING ASSOCIATE CPT-J1070 Depo Testosterone 100 mg 14:50:13 CDT 03/05 CPT-29788 Abx/Therapy Injection 14:50:13 CDT CPT-18634 Administration single or combination vac cine inc oral 14:34:43 CDT CPT-08850 Influenza split virus > age 3 14:34:43 CDT CPT-J1070 Depo Testosterone 100 mg 17:37:13 CDT 01/11 CPT-08876 Abx/Therapy Injection 17:37:13 CDT CPT-11618 Venipuncture Draw Fee 16:30:13 CDT CPT-08555 Venipuncture Draw Fee 16:29:43 CDT CPT-J1070 Depo Testosterone 100 mg 14:45:38 CDT 01/11
--- OUTSIDE RECORDS SUMMARY | 2019-10-27 13:07 | XMS REPORT | Clinical Summary ---
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 [employer] Benign neoplasm of colon PERIPHERAL NEUROPATHY 356.9 [...] ronary atherosclerosis of unspecified type of vessel, [place] or graft OTH NONSPC ABN FINDNG RAD&OTH [...] tablet by mouth daily LE VOTHYROXINE SODIUM 55054848062 Active Carina Tucker LPN Active GLIPIZIDE 10 MG TAB take 2 tablets twice daily GLIPIZIDE 84680490053 Active Baltazar Childers MD Active SUCRALFATE 1 GM TABS 1 four times a day to coat the stomach 2015 SUCRALFATE 59720961197 No Longer Active Baltazar Childers MD Active PEN NEEDLES 31G X 6 MM MISC use 1 daily INSULIN PEN NEEDLE 27999198903 Active Bella Suarez [employer] Active TOURINKUO SOLOSTAR 300 UNIT/ML SC SOPN 10 units SC daily INSULIN GLARGINE 16807929514 No Longer Active Martita Godinez RMBetsey Active LANT SOLOSTAR 100 UNIT/ML SC SOPN 10 units SC daily INSULIN GLARGINE 97715169092 Active Baltazar Childers MD Active NAPROXEN SODIUM 220 MG ORAL TABS 1 three times a day as needed 2 NAPROXEN SODIUM 07634811578 No Longer Active Baltazar Childers MD Active ATORVASTATIN CALCIUM 20 MG ORAL TABS Take 1 tab daily ATORVASTATIN CALCIUM 80740369470 Active Baltazar Childers MD Active FUROSEMIDE 40 MG TABS Take one by mouth daily FUROSEMIDE 08183461547 Active Baltazar Childers MD Active LISINOPRIL 20 MG TABS Take one by mouth daily at bedtime LISINOPRIL 35463950222 Active Baltazar Childers MD Active ONETOUCH ULTRA BLUE STRP Test twice a day GLUCO SE BLOOD 84360164096 No Longer Active Baltazar Childers MD Active TRUEPLUS LANCETS 33G MISC Test twice a day LANCET S 16612916678 Active KENDALL Juarez Active TRUEDRAW LANCING DEVICE MISC Test twice a day L ANCET DEVICES 79624239658 Active Baltazar Childers MD Active TRUETRACK TEST STRP Test twice a day GLUCOSE BLOO D 33463446819 Active KENDALL Juarez Active TRUEJONI BLOOD GLUCOSE W/DEVICE KIT Test twice a day BLOOD GLUCOSE MONITORING SUPPL 79477728459 Active Baltazar Childers MD Activ e HYDROCODONE-ACETAMINOPHEN 7.5-325 MG TABS Take 1 tab every 6-8 hour s PRN HYDROCODONE-ACETAMINOPHEN 86409796858 Active Baltazar Childers MD Active NORTRIPTYLINE HCL 50 MG CAPS 1 every night for neuropathy 4 NORTRIPTYLINE HCL 74935799120 Active Baltazar Childers MD Acti ve GABAPENTIN 300 MG CAPS 1 three times a day GABAPE NTIN 68672135532 Active Baltazar Childers MD Active GABAPENTIN 300 MG CAPS 1 po qd x 2 days, then 1 po BID x 2 d ays, then 1 po TID GABAPENTIN 48599178218 No Longer Active Baltazar silverman MD Active TRAMADOL HCL 50 MG TABS 1 twice a day as needed for pain TRAMADOL HCL 91248879372 Active Baltazar Childers MD Active NAPROXEN 500 MG TABS 1 tablet by mouth twice daily NAPROXEN 52244624781 No Longer Active Baltazar Childers MD Active PROAIR HFA 108 (90 BASE) MCG/ACT AERS 2 puffs four times a d ay as needed ALBUTEROL SULFATE 78878131284 Active Baltazar Childers MD Active DEPO-TESTOSTERONE 200 MG/ML OIL as directed RUFINO TOSTERONE CYPIONATE 24383318144 No Longer Active Baltazar Childers MD Active LIPITOR 20 MG TABS Take one by mouth daily in evening ATORVASTATIN CALCIUM 29763167125 No Longer Active Baltazar Childers MD Activ e CRESTOR 10 MG TABS 1 by mouth every day R OSUVASTATIN CALCIUM 51433071361 No Longer Active Baltazar Childers MD Activ e PHENTERMINE HCL 37.5 MG TABS Take one by mouth daily 2 PHENTERMINE HCL 83930144302 No Longer Active Baltazar Childers MD Activ e ROBAXIN-750 750 MG TABS Take one by mouth daily ME THOCARBAMOL 14881669446 Active Baltazar Childers MD Active TIZANIDINE HCL 4 MG TABS 1 daily as needed for muscle spasm 2011 TIZANIDINE HCL 93711002330 No Longer Active Dawna Salazar RN Active NXPHIDHWBA-OBBX-EQQOBOZM 50-325-40 MG TABS 1 four time s a day as needed for heacache KAUXTUIAXT-MIKS-RVSWQJGK 10415619764 Active Baltazar Childers MD Active SUMATRIPTAN SUCCINATE 100 MG TABS 1 tablet by mouth at onset of migraine as needed SUMATRIPTAN SUCCINATE 78727276238 Active Shonna Cram er [employer] Active LORATADINE 10 MG TABS Take one by mouth daily LORATADINE 64046931941 Active KENDALL Juarez Active OMEPRAZOLE 20 MG CPDR Take one by mouth daily OMEPRAZOLE 72997726222 Active Baltazar Childers MD Active HYDROXYZINE HCL 25 MG TABS Take one by mouth daily HYDROXYZINE HCL 68096896062 Active Baltazar Childers MD Active ALPRAZOLAM 1 MG TABS 1 tablet by mouth daily at bedtime for restles s leg ALPRAZOLAM 53786722571 Active Baltazar Childers MD Active METFORMIN HCL 1000 MG TABS Take one by mouth twice daily METFORMIN HCL 05023814819 Active Baltazar Childers MD Active TIZANIDINE HCL 4 MG TABS 1 daily as needed for muscle spasm 2011 TIZANIDINE HCL 4 MG TABS 167298 TIZANIDINE HCL Inactiv e PHENTERMINE HCL 37.5 MG TABS Take one by mouth daily 2 PHENTERMINE HCL 37.5 MG TABS 658142 PHENTERMINE HCL Inactive CRESTOR 10 MG TABS 1 by mouth every day C RESTOR 10 MG TABS 803882 ROSUVASTATIN CALCIUM Inactive LIPITOR 20 MG TABS Take one by mouth daily in evening LIPITOR 20 MG TABS 582924 ATORVASTATIN CALCIUM Inactive DEPO-TESTOSTERONE 200 MG/ML OIL as directed 8 DEPO-TESTOSTERONE 200 MG/ML OIL 653320 TESTOSTERONE CYPIONATE Inactive NAPROXEN 500 MG TABS 1 tablet by mouth twice daily 201 07/27/22 NAPROXEN 500 MG TABS 305846 NAPROXEN Inactive GABAPENTIN 300 MG CAPS 1 po qd x 2 days, then 1 po BID x 2 d ays, then 1 po TID GABAPENTIN 300 MG CAPS 901421 GABAPENTIN Inact amie ONETOUCH ULTRA BLUE STRP Test twice a day ONETOUCH ULTRA BLUE STRP GLUCOSE BLOOD Inactive NAPROXEN SODIUM 220 MG ORAL TABS 1 three times a day as needed 2 NAPROXEN SODIUM 220 MG ORAL TABS 079649 NAPROXEN SODIUM Inactive TOUJEO SOLOSTAR 300 UNIT/ML SC SOPN 10 units SC daily CELINA PAIRKH 300 UNIT/ML SC SOPN INSULIN GLARGINE Inac tive SUCRALFATE 1 GM TABS 1 four times a day to coat the stomach 2015 SUCRALFATE 1 GM TABS 025973 SUCRALFATE Inactive Immunizations Vaccine Administration Date Value Standard Floyd cription pneumococcal immunization administered Pneumovax 23 [CVX33] pneumococcal polysaccharide vaccine, 23 valent Seasonal influenza vaccine, injectable, containing preservative, for > 3 years old (Afluria, FluLaval, Fluzone, Fluvirin, Fluarix, Agriflu(>= 18 yo)) Fluzone (>3 yrs.) [SKF289] Influenza, seasonal, inject able Seasonal influenza vaccine, injectable, containing preservative, for > 3 years old (Afluria, FluLaval, Fluzone, Fluvirin, Fluarix, Agriflu(>= 18 yo)) Fluzone (>3 yrs.) [QPT212] Influenza, seasonal, inject able Vital Signs Date [...] C - Chemistry sodium, serum 139 mmol/L 752-598 7086/07/07 potassium, serum 4.5 mmol/L 3.5-5.2 chloride, serum 99 mmol/L 98-107 carbon dioxide, venous blood 33.8 mmol/L 21.0-32 .0 blood glucose 209 mg/dL 65-110 calcium, serum 9.8 mg/dL 8.5-10.1 urea nitrogen, blood 14 mg/dL 7-18 creatinine, serum 1.89 mg/dL 0.55-1.30 hemoglobin A1C, blood, as % of total hemoglobin 8.3 % 4.3-6.0 sodium, serum 143 mmol/L 216-390 5034/06/19 potassium, serum 5.9 mmol/L 3.5-5.2 chloride, serum [...] Panel - Chemistry sodium, serum 143 mmol/L 930-779 0521/12/19 carbon dioxide, venous blood 32.5 mmol/L 21.0-32 .0 potassium, serum 4.9 mmol/L 3.5-5.2 chloride, serum 101 mmol/L 98-107 blood glucose 129 mg/dL 65-110 urea nitrogen, blood 18 mg/dL 7-18 creatinine, serum 1.79 mg/dL 0.55-1.30 alanine aminotransferase (SGPT), serum 34 U/L 12-78 aspartate aminotransferase (SGOT), serum 26 U/L 15-37 calcium, serum 8.9 mg/dL 8.5-10.1 bilirubin, serum, total 0.30 mg/dL 0.00-1.00 cholesterol, serum 214 mg/dL 863-176 0001/12/19 triglyceride, serum, fasting 351 mg/dL 30-200 HDL [...] Panel - Chemistry sodium, serum 141 mmol/L 858-043 7819/08/08 potassium, serum 4.9 mmol/L 3.5-5.2 chloride, serum 101 mmol/L 98-107 carbon dioxide, venous blood 34.1 mmol/L 21.0-32 .0 creatinine, serum 1.98 mg/dL 0.55-1.30 blood glucose 193 mg/dL 65-110 urea nitrogen, blood 30 mg/dL 7-18 calcium, serum 9.8 mg/dL 8.5-10.1 Encounters Code Encounter Date Provider Facility CPT-71793 Level 4 Est. Patient 14:22:31 CDT Baltazar Childers MD [facility] [id number] Level 4 Est. Patient 15:44:38 CDT Shonna Parker APRN [facility] [id number] Level 4 Est. Patient 11:34:17 CDT Baltazar Childers MD [facility] CPT-39929 Level 3 Est. Patient 16:40:40 CDT Baltazar Childers MD [facility] [place]-[id number] Level 4 Est. Patient 10:41:24 CDT Baltazar Childers MD [facility] [place]-33190 Level 4 Est. Patient 16:01:48 CDT Baltazar Childers MD [facility] [place]-[id number] Level 4 Est. Patient 16:54:07 IUSS MASTER ANALYST Baltazar Childers MD [facility] [place]-50431 Level 4 Est. Patient 15:42:12 CDT Baltazar Childers MD [facility] CPT-21327 Level 4 Est. Patient 11:29:55 CDT Baltazar Childers MD [facility] CPT-25112 Level 4 Est. Patient 14:15:19 CDT Baltazar Childers MD [facility] CPT-63310 Level 4 Est. Patient 12:20:13 CDT Baltazar Childers MD [facility] CPT-20623 Level 4 Est. Patient 14:52:45 IUSS MASTER ANALYST Baltazar Childers MD [facility] CPT-51869 Level 4 Est. Patient 14:18:34 IUSS MASTER ANALYST Baltazar Childers MD [facility] CPT-50771 Level 4 Est. Patient 15:18:29 CDT Baltazar Childers MD [facility] CPT-43216 Level 3 Est. Patient 12:45:34 CDT Baltazar Childers MD [facility] CPT-25628 Level 3 Est. Patient 10:10:11 CDT Baltazar Childers MD [facility] CPT-51831 Level 3 Est. Patient 14:07:50 CDT Baltazar Childers MD [facility] CPT-23939 Level 4 Est. Patient 12:26:10 IUSS MASTER ANALYST Baltazar Childers MD [facility] CPT-02522 Level 4 Est. Patient 14:45:38 CDT Baltazar Childers MD [facility] CPT-94833 Level 4 New Patient 12:30:48 CDT Baltazar hinton MD [facility] Procedures Code Procedure Name Date Entry Date Standard Desc ription CPT-47358 Lipid - LAB USE ONLY 17:39:15 IUSS MASTER ANALYST 9 CPT-47483 HGBA1C - LAB USE ONLY 17:39:15 IUSS MASTER ANALYST CPT-83623 CMP - LAB USE ONLY 17:39:14 IUSS MASTER ANALYST CPT-62120 Venipuncture Draw Fee 17:39:14 IUSS MASTER ANALYST CPT-20083 First Vx - Ix admin via ID I M or jet injects without counseling by physician 16:55:17 IUSS MASTER ANALYST CPT-42976 Fluzone Quadrivalent Intramuscular Suspe nsion 0.5 ML 16:55:17 IUSS MASTER ANALYST CPT-37212 Renal Panel - LAB USE ONLY 17:39:20 CDT 201 10/31/07 CPT-89553 CBC - LAB USE ONLY 17:39:20 CDT CPT-14056 Venipuncture Draw Fee 17:39:20 CDT CPT-24744 Venipuncture Draw Fee 14:33:30 CDT CPT-05131 Renal Panel - LAB USE ONLY 14:33:30 CDT 201 10/31/07 CPT-51928 CBC - LAB USE ONLY 14:33:29 CDT CPT-70788 Venipuncture Draw Fee 14:50:21 IUSS MASTER ANALYST CPT-60551 Immunization Single Admin 17:35:35 CDT 2014 CPT-56657 Fluzone Quadrivalent preservative free ( >=3yrs.) 17:35:35 CDT CPT-95225 Venipuncture Draw Fee 12:10:27 IUSS MASTER ANALYST CPT-60282 Fluzone Quadrivalent Intramuscular Suspe nsion 0.5 ML 10:49:13 CDT CPT-98321 First Vx Component - Ix admi n via ID IM or jet inj without physician counseling 15:17:19 IUSS MASTER ANALYST CPT-05813 Pneumovax 23 15:17:19 IUSS MASTER ANALYST CPT-85663 Pneumovax 14:52:45 IUSS MASTER ANALYST CPT-89603 Venipuncture Draw Fee 14:06:30 IUSS MASTER ANALYST CPT-000 Give Appropriate Flu Vaccine 14:18:34 IUSS MASTER ANALYST 2 CPT-78808 Administration single or combination vac cine inc oral 14:46:00 IUSS MASTER ANALYST CPT-51998 Influenza split virus > age 3 14:46:00 IUSS MASTER ANALYST CPT-OV Office Visit 19:13:16 CDT CPT-49441 Zostavax 18:41:56 CDT CPT-27443 Administration single or combination vac cine inc oral 12:56:39 CDT CPT-00805 Zoster Vaccine (Zostavax) 12:56:39 CDT 2012 CPT-71830 Venipuncture Draw Fee 10:58:57 CDT CPT-49998 Sono pelvis non OB uterus ovaries cervix 17:45:04 CDT CPT-08855 Sono retroperitoneal complete kidneys an d bladder 17:14:36 CDT CPT-OV Office Visit 14:59:38 IUSS MASTER ANALYST CPT-J1070 Depo Testosterone 100 mg 14:50:13 CDT 03/05 CPT-63775 Abx/Therapy Injection 14:50:13 CDT CPT-99627 Administration single or combination vac cine inc oral 14:34:43 CDT CPT-28280 Influenza split virus > age 3 14:34:43 CDT CPT-J1070 Depo Testosterone 100 mg 17:37:13 CDT 01/11 CPT-64914 Abx/Therapy Injection 17:37:13 CDT CPT-17734 Venipuncture Draw Fee 16:30:13 CDT CPT-56573 Venipuncture Draw Fee 16:29:43 CDT CPT-J1070 Depo Testosterone 100 mg 14:45:38 CDT 01/11
--- OUTSIDE RECORDS SUMMARY | 2019-10-27 13:08 | XMS REPORT | Clinical Summary ---
Author Author Admin, Elba [facility] Address Unknown Phone Unavailable Allergies, 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 [employer] Benign neoplasm of colon PERIPHERAL NEUROPATHY [...] kidney and ureter CAD 414.00 Active [facility] atherosclerosis of unspecified [...] stage III 585.3 Active 201 10/25/03 Elbamargarette yRan A Chronic kidney disease, Stage III (moder [...] three times a day 201 12/03/26 GABAPENTIN 46624102062 No Longer Active Baltazar Childers MD Activ e LISINOPRIL 20 MG ORAL TABLET 1 tablet by mouth daily at night 2016 LISINOPRIL 52607060491 Active Baltazar Childers MD Active ZITHROMAX Z-ISAIAS 250 MG ORAL TABLET Take two tablets to day and then 1 tablet daily for 4 days AZITHROMYCIN 31388539374 No Longer A ctive Baltazar Childers MD Active LANTUS SOLOSTAR 100 UNIT/ML SUBCUTANEOUS SOLUTION PEN- INJECTOR 30 units SC daily INSULIN GLARGINE 43568402192 Active Baltazar Childers MD Active AMLODIPINE BESYLATE 5 MG ORAL TABLET 1 tab daily for HTN AMLODIPINE BESYLATE 47101258436 Active Baltazar Childers MD Active SYNTHROID 100 MCG ORAL TABLET 1 tablet by mouth daily LEVOTHYROXINE SODIUM 07264279897 Active Baltazar Childers MD Active GLIPIZIDE 10 MG ORAL TABLET take 2 tablets twice daily GLIPIZIDE 58909054403 Active Baltazar Childers MD Active SUCRALFATE 1 GM ORAL TABLET 1 four times a day to coat the stoma ch SUCRALFATE 31948301253 No Longer Active Batlazar Childers MD Active PEN NEEDLES 31G X 6 MM use 1 daily INSULIN PEN NE EDLE 10162844235 Active KENDALL Juarez Active CELINA POWERSOSTNAKITA 300 UNIT/ML SUBCUTANEOUS SOLUTION PEN- INJECTOR 10 units SC daily INSULIN GLARGINE 86296912501 No Longer Active Rola Godinez RMA Active NAPROXEN SODIUM 220 MG ORAL TABLET 1 three times a day as needed NAPROXEN SODIUM 52344221592 No Longer Active Baltazar Childers MD Active ATORVASTATIN CALCIUM 20 MG ORAL TABLET Take 1 tab daily ATORVASTATIN CALCIUM 31336885892 Active Baltazar Childers MD A ctive FUROSEMIDE 40 MG ORAL TABLET Take one by mouth daily FUROSEMIDE 16957597549 Active Jessy Arellano LPN Active LISINOPRIL 20 MG ORAL TABLET Take one by mouth daily at bedtime LISINOPRIL 16897024349 No Longer Active Baltazar Childers MD Active ONETOUCH ULTRA BLUE IN VITRO STRIP Test twice a day 07/11/11 GLUCOSE BLOOD 13486934563 No Longer Active Baltazar Childers MD Acti ve TRUEPLUS LANCETS 33G Test twice a day LANCETS 3445250 1250 Active KENDALL Juarez Active TRUEDRAW LANCING DEVICE Test twice a day LANCET DEVICES 05815335916 Active Baltazar Childers MD Active TRUETRACK TEST IN VITRO STRIP Test twice a day GLUCOSE BLOOD 67803448286 Active KENDALL Juarez Active TRUETRACK BLOOD GLUCOSE w/Device KIT Test twice a day BLOOD GLUCOSE MONITORING SUPPL 94577849076 Active Baltazar Childers MD Activ e HYDROCODONE-ACETAMINOPHEN 7.5-325 MG ORAL TABLET Take 1 tab every 6-8 hours PRN HYDROCODONE-ACETAMINOPHEN 75492282376 Active Baltazar Nickerson MD Active NORTRIPTYLINE HCL 50 MG ORAL CAPSULE 1 every night for neuropathy 2 NORTRIPTYLINE HCL 64945051363 Active Baltazar Childers MD Acti ve GABAPENTIN 300 MG ORAL CAPSULE 1 po qd x 2 days, then 1 po BID x 2 days, then 1 po TID GABAPENTIN 58350723257 No Longer Active Baltazar Childers MD Active TRAMADOL HCL 50 MG ORAL TABLET 1 twice a day as needed for pain 201 07/27/28 TRAMADOL HCL 00078907816 Active Baltazar Childers MD Active NAPROXEN 500 MG ORAL TABLET 1 tablet by mouth twice daily NAPROXEN 70061418963 No Longer Active Baltazar Childers MD Active PROAIR HFA 108 (90 Base) MCG/ACT INHALATION AEROSOL SO LUTION 2 puffs four times a day as needed ALBUTEROL SULFATE 61218011167 Active Paul Childers MD Active DEPO-TESTOSTERONE 200 MG/ML INTRAMUSCULAR SOLUTION as directed TESTOSTERONE CYPIONATE 25637886740 No Longer Active Baltazar Childers MD Active LIPITOR 20 MG ORAL TABLET Take one by mouth daily in evening ATORVASTATIN CALCIUM 28419632008 No Longer Active Baltazar Childers MD Active CRESTOR 10 MG ORAL TABLET 1 by mouth every day ROSUVASTATIN CALCIUM 68118654320 No Longer Active Baltazar Childers MD Active PHENTERMINE HCL 37.5 MG ORAL TABLET Take one by mouth daily PHENTERMINE HCL 77738462040 No Longer Active Baltazar Childers MD Ac tive ROBAXIN-750 750 MG ORAL TABLET Take one by mouth daily METHOCARBAMOL 01290727134 Active Baltazar Childers MD Active TIZANIDINE HCL 4 MG ORAL TABLET 1 daily as needed for muscle spa sm TIZANIDINE HCL 24597376507 No Longer Active Dawna Salazar RN Active [id number] 50-325-40 MG ORAL TABLET 1 fo ur times a day as needed for heacache [id number] 99377009987 Active Baltazar Childers MD Active SUMATRIPTAN SUCCINATE 100 MG ORAL TABLET 1 tablet by m outh at onset of migraine as needed SUMATRIPTAN SUCCINATE 23068759333 Active KENDALL Restrepo Active LORATADINE 10 MG ORAL TABLET Take one by mouth daily LORATADINE 74563981995 Active Baltazar Childers MD Active OMEPRAZOLE 20 MG ORAL CAPSULE DELAYED RELEASE Take one by mouth jostin ly OMEPRAZOLE 06647979853 Active Baltazar Childers MD Active HYDROXYZINE HCL 25 MG ORAL TABLET Take one by mouth daily HYDROXYZINE HCL 21424312081 Active Baltazar Childers MD Active ALPRAZOLAM 1 MG ORAL TABLET 1 [facility] 88780657899 Active Baltazar Childers MD Active METFORMIN HCL 1000 MG ORAL TABLET Take one by mouth twice daily METFORMIN HCL 91657655320 Active Baltazar Childers MD Active TIZANIDINE HCL 4 MG ORAL TABLET 1 daily as needed for muscle spa sm TIZANIDINE HCL 4 MG ORAL TABLET 853249 TIZANIDINE HCL Inactive PHENTERMINE HCL 37.5 MG ORAL TABLET Take one by mouth daily PHENTERMINE HCL 37.5 MG ORAL TABLET 465333 PHENTERMINE HCL Inac tive CRESTOR 10 MG ORAL TABLET 1 by mouth every day CRESTOR 10 MG ORAL TABLET 944192 ROSUVASTATIN CALCIUM Inactive LIPITOR 20 MG ORAL TABLET Take one by mouth daily in evening LIPITOR 20 MG ORAL TABLET 901474 ATORVASTATIN CALCIUM Inactive DEPO-TESTOSTERONE 200 MG/ML INTRAMUSCULAR SOLUTION as directed DEPO-TESTOSTERONE 200 MG/ML INTRAMUSCULAR SOLUTION 839554 RUFINO TOSTERONE CYPIONATE Inactive NAPROXEN 500 MG ORAL TABLET 1 tablet by mouth twice daily NAPROXEN 500 MG ORAL TABLET 046852 NAPROXEN Inactive GABAPENTIN 300 MG ORAL CAPSULE 1 po qd x 2 days, then 1 po BID x 2 days, then 1 po TID GABAPENTIN 300 MG ORAL CAPSULE 365757 GABAP ENTIN Inactive ONETOUCH ULTRA BLUE IN VITRO STRIP Test twice a day 07/11/11 ONETOUCH ULTRA BLUE IN VITRO STRIP GLUCOSE BLOOD Inact amie NAPROXEN SODIUM 220 MG ORAL TABLET 1 three times a day as needed NAPROXEN SODIUM 220 MG ORAL TABLET 325557 NAPROXEN SODI UM Inactive TOUJEO SOLOSTAR 300 UNIT/ML SUBCUTANEOUS SOLUTION PEN- INJECTOR 10 units SC daily TOUJEO SOLOSTAR 300 UNIT/ML SUBCUTANEOUS SOLUTION PEN-INJECTOR INSULIN GLARGINE Inactive SUCRALFATE 1 GM ORAL TABLET 1 four times a day to coat the stoma ch SUCRALFATE 1 GM ORAL TABLET 573700 SUCRALFATE Inac tive GABAPENTIN 300 MG ORAL CAPSULE 1 three times a day 201 12/03/26 GABAPENTIN 300 MG ORAL CAPSULE 180122 GABAPENTIN Inactive ZITHROMAX Z-ISAIAS 250 MG ORAL TABLET Take two tablets to day and then 1 tablet daily for 4 days ZITHROMAX Z-ISAIAS 250 MG ORAL TAB LET 587081 AZITHROMYCIN Inactive Immunizations Vaccine Administration Date Value Standard Floyd cription pneumococcal immunization administered Pneumovax 23 [CVX33] pneumococcal polysaccharide vaccine, 23 valent Seasonal influenza vaccine, injectable, containing preservative, for > 3 years old (Afluria, FluLaval, Fluzone, Fluvirin, Fluarix, Agriflu(>= 18 yo)) Fluzone (>3 yrs.) [RRZ130] Influenza, seasonal, inject able Seasonal influenza vaccine, injectable, containing preservative, for > 3 years old (Afluria, FluLaval, Fluzone, Fluvirin, Fluarix, Agriflu(>= 18 yo)) Fluzone (>3 yrs.) [DOW020] Influenza, seasonal, inject able Vital Signs Date [...] - Chem istry sodium, serum 139 mmol/L 214-162 8283/10/03 potassium, serum 4.7 mmol/L 3.5-5.2 chloride, serum 98 mmol/L 98-107 carbon dioxide, venous blood 28.7 mmol/L 21.0-32 .0 blood glucose 218 mg/dL 65-110 calcium, serum 9.8 mg/dL 8.5-10.1 urea nitrogen, blood 19 mg/dL 7-18 creatinine, serum 1.68 mg/dL 0.60-1.30 Lab Report: Basic Metabolic Panel, HGBA1 C - Chemistry sodium, serum 143 mmol/L 504-720 5209/06/19 potassium, serum 5.9 mmol/L 3.5-5.2 chloride, serum 105 mmol/L 98-107 carbon dioxide, venous blood 30.2 mmol/L 21.0-32 .0 blood glucose 189 mg/dL 65-110 calcium, serum 9.7 mg/dL 8.5-10.1 urea nitrogen, blood 37 mg/dL 7-18 creatinine, serum 2.11 mg/dL 0.55-1.30 hemoglobin A1C, blood, as % of total hemoglobin 8.2 % 4.3-6.0 Lab Report: CBC, Renal Panel - Chemistry sodium, serum 142 mmol/L 040-419 0925/08/11 potassium, serum 4.8 mmol/L 3.5-5.2 chloride, serum [...] (L) - Chemistry cholesterol, serum 209 mg/dL 679-957 1310/12/27 triglyceride, serum, fasting 329 mg/dL 30-200 HDL cholesterol, serum 56 mg/dL 32-60 LDL cholesterol, serum 87 mg/dL 0-130 TSH 3.60 m[iU]/mL 0.36-3.74 Encounters Code Encounter Date Provider Facility CPT-79893 Level 4 Est. Patient 16:21:19 TITLE ASSISTANT Baltazar Childers MD [facility] CPT-41971 Level 4 Est. Patient 12:25:11 CDT Baltazar Childers MD [facility]-64418 Level 4 Est. Patient 14:22:31 CDT Baltazar Childers MD [facility]-86067 Level 4 Est. Patient 15:44:38 CDT Shonnajean Parker APRN [facility]-41693 Level 4 Est. Patient 11:34:17 CDT Baltazar Childers MD [facility]-58210 Level 3 Est. Patient 16:40:40 CDT Baltazar Childers MD [facility]-97895 Level 4 Est. Patient 10:41:24 CDT Baltazar Childers MD [facility]-20109 Level 4 Est. Patient 16:01:48 CDT Baltazar Childers MD [facility]-34385 Level 4 Est. Patient 16:54:07 TITLE ASSISTANT Baltazar Childers MD [facility]-17585 Level 4 Est. Patient 15:42:12 CDT Baltazar Childers MD [facility] CPT-96381 Level 4 Est. Patient 11:29:55 CDT Baltazar Childers MD [facility] [place]-69782 Level 4 Est. Patient 14:15:19 CDT Baltazar Childers MD [facility] [place]-43340 Level 4 Est. Patient 12:20:13 CDT Baltazar Childers MD [facility] CPT-95184 Level 4 Est. Patient 14:52:45 TITLE ASSISTANT Baltazar Childers MD [facility] [place]-97204 Level 4 Est. Patient 14:18:34 TITLE ASSISTANT Baltazar Childers MD [facility] [place]-44081 Level 4 Est. Patient 15:18:29 CDT Baltazar Childers MD [facility] [place]-21859 Level 3 Est. Patient 12:45:34 CDT Baltazar Childers MD [facility] CPT-65469 Level 3 Est. Patient 10:10:11 CDT Baltazar Childers MD [facility] CPT-41888 Level 3 Est. Patient 14:07:50 CDT Baltazar Childers MD [facility] CPT-36496 Level 4 Est. Patient 12:26:10 TITLE ASSISTANT Baltazar Childers MD [facility] CPT-79375 Level 4 Est. Patient 14:45:38 CDT Baltazar Childers MD [facility] CPT-22291 Level 4 New Patient 12:30:48 CDT Baltazar hinton MD [facility] Procedures Code Procedure Name Date Entry Date Standard Desc ription CPT-70845 First Vx - Ix admin via ID I M or jet injects without counseling by physician 13:08:59 CDT CPT-88950 Fluzone Quadrivalent Intramuscular Suspe nsion 0.5 ML 13:08:59 CDT CPT-31581 Venipuncture Draw Fee 12:04:12 CDT CPT-77090 Lipid - LAB USE ONLY 17:39:15 TITLE ASSISTANT 9 CPT-64267 HGBA1C - LAB USE ONLY 17:39:15 TITLE ASSISTANT CPT-30690 CMP - LAB USE ONLY 17:39:14 TITLE ASSISTANT CPT-21808 Venipuncture Draw Fee 17:39:14 TITLE ASSISTANT CPT-11183 First Vx - Ix admin via ID I M or jet injects without counseling by physician 16:55:17 TITLE ASSISTANT CPT-82644 Fluzone Quadrivalent Intramuscular Suspe nsion 0.5 ML 16:55:17 TITLE ASSISTANT CPT-99381 Renal Panel - LAB USE ONLY 17:39:20 CDT 201 10/31/07 CPT-34787 CBC - LAB USE ONLY 17:39:20 CDT CPT-80093 Venipuncture Draw Fee 17:39:20 CDT CPT-99925 Venipuncture Draw Fee 14:33:30 CDT CPT-71077 Renal Panel - LAB USE ONLY 14:33:30 CDT 201 10/31/07 CPT-61608 CBC - LAB USE ONLY 14:33:29 CDT CPT-70052 Venipuncture Draw Fee 14:50:21 TITLE ASSISTANT CPT-06843 Immunization Single Admin 17:35:35 CDT 2014 CPT-11648 Fluzone Quadrivalent preservative free ( >=3yrs.) 17:35:35 CDT CPT-60995 Venipuncture Draw Fee 12:10:27 TITLE ASSISTANT CPT-13211 Fluzone Quadrivalent Intramuscular Suspe nsion 0.5 ML 10:49:13 CDT CPT-54303 First Vx Component - Ix admi n via ID IM or jet inj without physician counseling 15:17:19 TITLE ASSISTANT CPT-25156 Pneumovax 23 15:17:19 TITLE ASSISTANT CPT-06931 Pneumovax 14:52:45 TITLE ASSISTANT CPT-68162 Venipuncture Draw Fee 14:06:30 TITLE ASSISTANT CPT-000 Give Appropriate Flu Vaccine 14:18:34 TITLE ASSISTANT 2 CPT-29662 Administration single or combination vac cine inc oral 14:46:00 TITLE ASSISTANT CPT-13575 Influenza split virus > age 3 14:46:00 TITLE ASSISTANT CPT-OV Office Visit 19:13:16 CDT CPT-73873 Zostavax 18:41:56 CDT CPT-75022 Administration single or combination vac cine inc oral 12:56:39 CDT CPT-20921 Zoster Vaccine (Zostavax) 12:56:39 CDT 2012 CPT-78107 Venipuncture Draw Fee 10:58:57 CDT CPT-27581 Sono pelvis non OB uterus ovaries cervix 17:45:04 CDT CPT-51874 Sono retroperitoneal complete kidneys an d bladder 17:14:36 CDT CPT-OV Office Visit 14:59:38 TITLE ASSISTANT CPT-J1070 Depo Testosterone 100 mg 14:50:13 CDT 03/05 CPT-99595 Abx/Therapy Injection 14:50:13 CDT CPT-01898 Administration single or combination vac cine inc oral 14:34:43 CDT CPT-07104 Influenza split virus > age 3 14:34:43 CDT CPT-J1070 Depo Testosterone 100 mg 17:37:13 CDT 01/11 CPT-08331 Abx/Therapy Injection 17:37:13 CDT CPT-06353 Venipuncture Draw Fee 16:30:13 CDT CPT-23684 Venipuncture Draw Fee 16:29:43 CDT CPT-J1070 Depo Testosterone 100 mg 14:45:38 CDT 01/11
--- OUTSIDE RECORDS SUMMARY | 2019-10-27 13:08 | XMS REPORT | Clinical Summary ---
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 Benign neoplasm of colon PERIPHERAL NEUROPATHY 356.9 [...] tablet by mouth daily LE VOTHYROXINE SODIUM 11055252999 Active Carina Tucker LPN Active GLIPIZIDE 10 MG TAB take 2 tablets twice daily GLIPIZIDE 44018802673 Active Carina Tucker LPN Active SUCRALFATE 1 GM TABS 1 four times a day to coat the stomach 2015 SUCRALFATE 45599046836 No Longer Active Baltazar Childers MD Active PEN NEEDLES 31G X 6 MM MISC use 1 daily INSULIN PEN NEEDLE 17301037463 Active Bella Suarez SLURRY MIXER Active TOURINKUO SOLOSTAR 300 UNIT/ML SC SOPN 10 units SC daily INSULIN GLARGINE 67234721258 No Longer Active Martita Godinez KENDALL Active LANTUS SOLOSTAR 100 UNIT/ML SC SOPN 10 units SC daily INSULIN GLARGINE 13528204480 Active Baltazar Childers MD Active NAPROXEN SODIUM 220 MG ORAL TABS 1 three times a day as needed 2 NAPROXEN SODIUM 44389088402 No Longer Active Baltazar Childers MD Active ATORVASTATIN CALCIUM 20 MG ORAL TABS Take 1 tab daily ATORVASTATIN CALCIUM 46801118755 Active Baltazar Childers MD Active FUROSEMIDE 40 MG TABS Take one by mouth daily FUROSEMIDE 62259666391 Active Baltazar Childers MD Active LISINOPRIL 20 MG TABS Take one by mouth daily at bedtime LISINOPRIL 21128512045 Active KENDALL Juarez Active ONETOUCH ULTRA BLUE STRP Test twice a day GLUCO SE BLOOD 42276219065 No Longer Active Baltazar Childers MD Active TRUEPLUS LANCETS 33G MISC Test twice a day LANCET S 97851579772 Active KENDALL Juarez Active TRUEDRAW LANCING DEVICE MISC Test twice a day L ANCET DEVICES 83815965349 Active Baltazar Childers MD Active TRUETRACK TEST STRP Test twice a day GLUCOSE BLOO D 19191148249 Active KENDALL Juarez Active TRUETRACK BLOOD GLUCOSE W/DEVICE KIT Test twice a day BLOOD GLUCOSE MONITORING SUPPL 55949295826 Active Baltazar Childers MD Activ e HYDROCODONE-ACETAMINOPHEN 7.5-325 MG TABS Take 1 tab every 6-8 hour s PRN HYDROCODONE-ACETAMINOPHEN 88278556806 Active Shonna Parker APRN Active NORTRIPTYLINE HCL 50 MG CAPS 1 every night for neuropathy 4 NORTRIPTYLINE HCL 05998901245 Active Baltazar Childers MD Acti ve GABAPENTIN 300 MG CAPS 1 three times a day GABAPE NTIN 45553730184 Active Baltazar Childers MD Active GABAPENTIN 300 MG CAPS 1 po qd x 2 days, then 1 po BID x 2 d ays, then 1 po TID GABAPENTIN 10113375646 No Longer Active Baltazar silverman MD Active TRAMADOL HCL 50 MG TABS 1 twice a day as needed for pain TRAMADOL HCL 73783923868 Active Shonna Parker APRN Active NAPROXEN 500 MG TABS 1 tablet by mouth twice daily NAPROXEN 38558197869 No Longer Active Baltazar Childers MD Active PROAIR HFA 108 (90 BASE) MCG/ACT AERS 2 puffs four times a d ay as needed ALBUTEROL SULFATE 02687024785 Active KENDALL Juarez Active DEPO-TESTOSTERONE 200 MG/ML OIL as directed RUFINO TOSTERONE CYPIONATE 62937086398 No Longer Active Baltazar Childers MD Active LIPITOR 20 MG TABS Take one by mouth daily in evening ATORVASTATIN CALCIUM 39680207230 No Longer Active Baltazar Childers MD Activ e CRESTOR 10 MG TABS 1 by mouth every day R OSUVASTATIN CALCIUM 78354989407 No Longer Active Baltazar Childers MD Activ e PHENTERMINE HCL 37.5 MG TABS Take one by mouth daily 2 PHENTERMINE HCL 39407191933 No Longer Active Baltazar Childers MD Activ e ROBAXIN-750 750 MG TABS Take one by mouth daily ME THOCARBAMOL 33914868457 Active Baltazar Childers MD Active TIZANIDINE HCL 4 MG TABS 1 daily as needed for muscle spasm 2011 TIZANIDINE HCL 65910289364 No Longer Active Dawna Salazar RN Active [id number] 50-325-40 MG TABS 1 four time s a day as needed for heacache [id number] 99669625732 Active Shonna Parker APRN Active SUMATRIPTAN SUCCINATE 100 MG TABS 1 tablet by mouth at onset of migraine as needed SUMATRIPTAN SUCCINATE 82166202199 Active Shonna Villaseñor er SLURRY MIXER Active LORATADINE 10 MG TABS Take one by mouth daily LORATADINE 70258766646 Active Baltazar Childers MD Active OMEPRAZOLE 20 MG CPDR Take one by mouth daily OMEPRAZOLE 09045272334 Active KENDALL Juarez Active HYDROXYZINE HCL 25 MG TABS Take one by mouth daily HYDROXYZINE HCL 50767658457 Active Baltazar Childers MD Active ALPRAZOLAM 1 MG TABS 1 tablet by mouth daily at bedtime for restles s leg ALPRAZOLAM 92498349973 Active Baltazar Childers MD Active METFORMIN HCL 1000 MG TABS Take one by mouth twice daily METFORMIN HCL 28500946763 Active Baltazar Childers MD Active TIZANIDINE HCL 4 MG TABS 1 daily as needed for muscle spasm 2011 TIZANIDINE HCL 4 MG TABS 999060 TIZANIDINE HCL Inactiv e PHENTERMINE HCL 37.5 MG TABS Take one by mouth daily 2 PHENTERMINE HCL 37.5 MG TABS 971267 PHENTERMINE HCL Inactive CRESTOR 10 MG TABS 1 by mouth every day C RESTOR 10 MG TABS 398125 ROSUVASTATIN CALCIUM Inactive LIPITOR 20 MG TABS Take one by mouth daily in evening LIPITOR 20 MG TABS 207572 ATORVASTATIN CALCIUM Inactive DEPO-TESTOSTERONE 200 MG/ML OIL as directed 8 DEPO-TESTOSTERONE 200 MG/ML OIL 988399 TESTOSTERONE CYPIONATE Inactive NAPROXEN 500 MG TABS 1 tablet by mouth twice daily 201 07/27/22 NAPROXEN 500 MG TABS 471265 NAPROXEN Inactive GABAPENTIN 300 MG CAPS 1 po qd x 2 days, then 1 po BID x 2 d ays, then 1 po TID GABAPENTIN 300 MG CAPS 306041 GABAPENTIN Inact amie ONETOUCH ULTRA BLUE STRP Test twice a day ONETOUCH ULTRA BLUE STRP GLUCOSE BLOOD Inactive NAPROXEN SODIUM 220 MG ORAL TABS 1 three times a day as needed 2 NAPROXEN SODIUM 220 MG ORAL TABS 950371 NAPROXEN SODIUM Inactive TOUJEO SOLOSTAR 300 UNIT/ML SC SOPN 10 units SC daily TOUJEO SOLOSTAR 300 UNIT/ML SC SOPN INSULIN GLARGINE Inac tive SUCRALFATE 1 GM TABS 1 four times a day to coat the stomach 2015 SUCRALFATE 1 GM TABS 947889 SUCRALFATE Inactive Immunizations Vaccine Administration Date Value Standard Floyd cription pneumococcal immunization administered Pneumovax 23 [CVX33] pneumococcal polysaccharide vaccine, 23 valent Seasonal influenza vaccine, injectable, containing preservative, for > 3 years old (Afluria, FluLaval, Fluzone, Fluvirin, Fluarix, Agriflu(>= 18 yo)) Fluzone (>3 yrs.) [[id number]] Influenza, seasonal, inject able Seasonal influenza vaccine, injectable, containing preservative, for > 3 years old (Afluria, FluLaval, Fluzone, Fluvirin, Fluarix, Agriflu(>= 18 yo)) Fluzone (>3 yrs.) [[id number]] Influenza, seasonal, inject able Vital Signs Date [...] C - Chemistry sodium, serum 139 mmol/L 023-026 7232/07/07 potassium, serum 4.5 mmol/L 3.5-5.2 chloride, serum [...] Panel - Chemistry sodium, serum 143 mmol/L 644-181 2310/12/19 carbon dioxide, venous blood 32.5 mmol/L 21.0-32 .0 potassium, serum 4.9 mmol/L 3.5-5.2 chloride, serum 101 mmol/L 98-107 blood glucose 129 mg/dL 65-110 urea nitrogen, blood 18 mg/dL 7-18 creatinine, serum 1.79 mg/dL 0.55-1.30 alanine aminotransferase (SGPT), serum 34 U/L 12-78 aspartate aminotransferase (SGOT), serum 26 U/L 15-37 calcium, serum 8.9 mg/dL 8.5-10.1 bilirubin, serum, total 0.30 mg/dL 0.00-1.00 cholesterol, serum 214 mg/dL 464-114 7609/12/19 triglyceride, serum, fasting 351 mg/dL 30-200 HDL [...] Panel - Chemistry sodium, serum 141 mmol/L 247-259 3304/08/08 potassium, serum 4.9 mmol/L 3.5-5.2 chloride, serum 101 mmol/L 98-107 carbon dioxide, venous blood 34.1 mmol/L 21.0-32 .0 creatinine, serum 1.98 mg/dL 0.55-1.30 blood glucose 193 mg/dL 65-110 urea nitrogen, blood 30 mg/dL 7-18 calcium, serum 9.8 mg/dL 8.5-10.1 Encounters Code Encounter Date Provider Facility CPT-82989 Level 4 Est. Patient 15:44:38 CDT Shonna Parker APRN [facility] CPT-04946 Level 4 Est. Patient 11:34:17 CDT Baltazar Childers MD [facility] CPT-79988 Level 3 Est. Patient 16:40:40 CDT Baltazar Childers MD [facility] CPT-87165 Level 4 Est. Patient 10:41:24 CDT Baltazar Childers MD [facility] [place]-78129 Level 4 Est. Patient 16:01:48 CDT Baltazar Childers MD [facility] [place]-07156 Level 4 Est. Patient 16:54:07 TANK TRUCK ENGINE MECHANIC Baltazar Childers MD [facility] [place]-49942 Level 4 Est. Patient 15:42:12 CDT Baltazar Childers MD [facility] CPT-20817 Level 4 Est. Patient 11:29:55 CDT Baltazar Childers MD [facility]-05165 Level 4 Est. Patient 14:15:19 CDT Baltazar Childers MD [facility]-97104 Level 4 Est. Patient 12:20:13 CDT Baltazar Childers MD [facility]-45253 Level 4 Est. Patient 14:52:45 TANK TRUCK ENGINE MECHANIC Baltazar Childers MD [facility]-61766 Level 4 Est. Patient 14:18:34 TANK TRUCK ENGINE MECHANIC Baltazar Childers MD [facility]-50617 Level 4 Est. Patient 15:18:29 CDT Baltazar Childers MD [facility]-32276 Level 3 Est. Patient 12:45:34 CDT Baltazar Childers MD [facility]-90132 Level 3 Est. Patient 10:10:11 CDT Baltazar Childers MD [facility]-10620 Level 3 Est. Patient 14:07:50 CDT Baltazar Childers MD [facility]-91415 Level 4 Est. Patient 12:26:10 TANK TRUCK ENGINE MECHANIC Baltazar Childers MD [facility]-28496 Level 4 Est. Patient 14:45:38 CDT Baltazar Childers MD [facility] CPT-21966 Level 4 New Patient 12:30:48 CDT Baltazar hinton MD [facility] Procedures Code Procedure Name Date Entry Date Standard Desc ription CPT-39146 Lipid - LAB USE ONLY 17:39:15 TANK TRUCK ENGINE MECHANIC 9 CPT-23272 HGBA1C - LAB USE ONLY 17:39:15 TANK TRUCK ENGINE MECHANIC CPT-86288 CMP - LAB USE ONLY 17:39:14 TANK TRUCK ENGINE MECHANIC CPT-73758 Venipuncture Draw Fee 17:39:14 TANK TRUCK ENGINE MECHANIC CPT-69006 First Vx - Ix admin via ID I M or jet injects without counseling by physician 16:55:17 TANK TRUCK ENGINE MECHANIC CPT-95492 Fluzone Quadrivalent Intramuscular Suspe nsion 0.5 ML 16:55:17 TANK TRUCK ENGINE MECHANIC CPT-24348 Renal Panel - LAB USE ONLY 17:39:20 CDT 201 10/31/07 CPT-76796 CBC - LAB USE ONLY 17:39:20 CDT CPT-71004 Venipuncture Draw Fee 17:39:20 CDT CPT-96961 Venipuncture Draw Fee 14:33:30 CDT CPT-65217 Renal Panel - LAB USE ONLY 14:33:30 CDT 201 10/31/07 CPT-40021 CBC - LAB USE ONLY 14:33:29 CDT CPT-03140 Venipuncture Draw Fee 14:50:21 TANK TRUCK ENGINE MECHANIC CPT-64141 Immunization Single Admin 17:35:35 CDT 2014 CPT-48872 Fluzone Quadrivalent preservative free ( >=3yrs.) 17:35:35 CDT CPT-84652 Venipuncture Draw Fee 12:10:27 TANK TRUCK ENGINE MECHANIC CPT-06696 Fluzone Quadrivalent Intramuscular Suspe nsion 0.5 ML 10:49:13 CDT CPT-91309 First Vx Component - Ix admi n via ID IM or jet inj without physician counseling 15:17:19 TANK TRUCK ENGINE MECHANIC CPT-47484 Pneumovax 23 15:17:19 TANK TRUCK ENGINE MECHANIC CPT-08574 Pneumovax 14:52:45 TANK TRUCK ENGINE MECHANIC CPT-23909 Venipuncture Draw Fee 14:06:30 TANK TRUCK ENGINE MECHANIC CPT-000 Give Appropriate Flu Vaccine 14:18:34 TANK TRUCK ENGINE MECHANIC 2 CPT-43386 Administration single or combination vac cine inc oral 14:46:00 TANK TRUCK ENGINE MECHANIC CPT-93459 Influenza split virus > age 3 14:46:00 TANK TRUCK ENGINE MECHANIC CPT-OV Office Visit 19:13:16 CDT CPT-96025 Zostavax 18:41:56 CDT CPT-51551 Administration single or combination vac cine inc oral 12:56:39 CDT CPT-93627 Zoster Vaccine (Zostavax) 12:56:39 CDT 2012 CPT-37937 Venipuncture Draw Fee 10:58:57 CDT CPT-97915 Sono pelvis non OB uterus ovaries cervix 17:45:04 CDT CPT-76869 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
--- OUTSIDE RECORDS SUMMARY | 2019-10-27 13:08 | XMS REPORT | Clinical Summary ---
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 Benign neoplasm of colon PERIPHERAL NEUROPATHY 356.9 [...] ronary atherosclerosis of unspecified type of vessel, [place] or graft OTH NONSPC ABN FINDNG RAD&OTH [...] Test twice a day GLUCO SE BLOOD 48817970278 No Longer Active Baltazar Childers MD Active TRUEPLUS LANCETS 33G MISC Test twice a day LANCET S 11717094587 Active Baltazar Childers MD Active TRUEDRAW LANCING DEVICE MISC Test twice a day L ANCET DEVICES 26988399694 Active Baltazar Childers MD Active TRUETRACK TEST STRP Test twice a day GLUCOSE BLOO D 28828153600 Active Baltazar Childers MD Active TRUETRACK BLOOD GLUCOSE W/DEVICE KIT Test twice a day BLOOD GLUCOSE MONITORING SUPPL 84548883833 Active Baltazar Childers MD Activ e HYDROCODONE-ACETAMINOPHEN 7.5-325 MG TABS Take 1 tab every 6-8 hour s PRN HYDROCODONE-ACETAMINOPHEN 12178439458 Active Baltazar Childers MD Active NORTRIPTYLINE HCL 50 MG CAPS 1 every night for neuropathy 4 NORTRIPTYLINE HCL 78874961649 Active Baltazar Childers MD Acti ve GABAPENTIN 300 MG CAPS 1 three times a day GABAPE NTIN 00637531061 Active Baltazar Childers MD Active GABAPENTIN 300 MG CAPS 1 po qd x 2 days, then 1 po BID x 2 d ays, then 1 po TID GABAPENTIN 85813004810 No Longer Active Baltazar silverman MD Active TRAMADOL HCL 50 MG TABS 1 twice a day as needed for pain TRAMADOL HCL 12008779531 Active Baltazar Childers MD Active NAPROXEN 500 MG TABS 1 tablet by mouth twice daily NAPROXEN 36877635737 No Longer Active Baltazar Childers MD Active PROAIR HFA 108 (90 BASE) MCG/ACT AERS 2 puffs four times a d ay as needed ALBUTEROL SULFATE 25577142709 Active Baltazar Childers MD Active DEPO-TESTOSTERONE 200 MG/ML OIL as directed RUFINO TOSTERONE CYPIONATE 83465205874 No Longer Active Baltazar Childers MD Active LIPITOR 20 MG TABS Take one by mouth daily in evening ATORVASTATIN CALCIUM 15586570079 No Longer Active Baltazar Childers MD Activ e CRESTOR 10 MG TABS 1 by mouth every day R OSUVASTATIN CALCIUM 62066044356 No Longer Active Baltazar Childers MD Activ e PHENTERMINE HCL 37.5 MG TABS Take one by mouth daily 2 PHENTERMINE HCL 48653529883 No Longer Active Baltazar Childers MD Activ e ROBAXIN-750 750 MG TABS Take one by mouth daily ME THOCARBAMOL 93925986060 Active Baltazar Childers MD Active TIZANIDINE HCL 4 MG TABS 1 daily as needed for muscle spasm 2011 TIZANIDINE HCL 52616952372 No Longer Active Dawna Salazar RN Active [id number] 50-325-40 MG TABS 1 four time s a day as needed for heacache [id number] 61958989929 Active Baltazar Childers MD Active SUMATRIPTAN SUCCINATE 100 MG TABS 1 tablet by mouth at onset of migraine as needed SUMATRIPTAN SUCCINATE 95776060523 Active Baltazar bynum MD Active LORATADINE 10 MG TABS Take one by mouth daily LORATADINE 26556349559 Active Baltazar Childers MD Active FUROSEMIDE 40 MG TABS Take one by mouth daily FUROSEMIDE 89896797310 Active Baltazar Childers MD Active LISINOPRIL 20 MG TABS Take one by mouth daily at bedtime LISINOPRIL 25107343284 Active Baltazar Childers MD Active OMEPRAZOLE 20 MG CPDR Take one by mouth daily OMEPRAZOLE 81795853488 Active Baltazar Childers MD Active HYDROXYZINE HCL 25 MG TABS Take one by mouth daily HYDROXYZINE HCL 21984594068 Active Baltazar Childers MD Active GLIPIZIDE 10 MG TABS 1 tablet by mouth twice daily GLIPIZIDE 88816761200 Active Baltazar Childers MD Active ALPRAZOLAM 1 MG TABS 1 tablet by mouth daily at bedtime for restles s leg ALPRAZOLAM 91944241550 Active Baltazar Childers MD Active METFORMIN HCL 1000 MG TABS Take one by mouth twice daily METFORMIN HCL 68971100913 Active Baltazar Childers MD Active TIZANIDINE HCL 4 MG TABS 1 daily as needed for muscle spasm 2011 TIZANIDINE HCL 4 MG TABS 811343 TIZANIDINE HCL Inactiv e PHENTERMINE HCL 37.5 MG TABS Take one by mouth daily 2 PHENTERMINE HCL 37.5 MG TABS 662455 PHENTERMINE HCL Inactive CRESTOR 10 MG TABS 1 by mouth every day C RESTOR 10 MG TABS ROSUVASTATIN CALCIUM Inactive LIPITOR 20 MG TABS Take one by mouth daily in evening LIPITOR 20 MG TABS 245272 ATORVASTATIN CALCIUM Inactive DEPO-TESTOSTERONE 200 MG/ML OIL as directed 8 DEPO-TESTOSTERONE 200 MG/ML OIL 464573 TESTOSTERONE CYPIONATE Inactive NAPROXEN 500 MG TABS 1 tablet by mouth twice daily 201 07/27/22 NAPROXEN 500 MG TABS 615381 NAPROXEN Inactive GABAPENTIN 300 MG CAPS 1 po qd x 2 days, then 1 po BID x 2 d ays, then 1 po TID GABAPENTIN 300 MG CAPS 718283 GABAPENTIN Inact amie ONETOUCH ULTRA BLUE STRP Test twice a day ONETOUCH ULTRA BLUE STRP GLUCOSE BLOOD Inactive Immunizations Vaccine Administration Date Value Standard Floyd cription pneumococcal immunization administered Pneumovax 23 [CVX33] pneumococcal polysaccharide vaccine, 23 valent Seasonal influenza vaccine, injectable, containing preservative, for > 3 years old (Afluria, FluLaval, Fluzone, Fluvirin, Fluarix, Agriflu(>= 18 yo)) Fluzone (>3 yrs.) [IQV236] Influenza, seasonal, inject able Seasonal influenza vaccine, injectable, containing preservative, for > 3 years old (Afluria, FluLaval, Fluzone, Fluvirin, Fluarix, Agriflu(>= 18 yo)) Fluzone (>3 yrs.) [XDP813] Influenza, seasonal, inject able Vital Signs Date [...] - Chem istry sodium, serum 140 mmol/L 362-595 6740/05/05 potassium, serum 4.9 mmol/L 3.5-5.2 chloride, serum [...] Panel - Chemistry sodium, serum 139 mmol/L 417-169 1123/01/20 potassium, serum 5.3 mmol/L 3.5-5.2 chloride, serum [...] mg/g mg/g{creat} 0-29 cholesterol, serum 319 mg/dL 652-889 5844/08/21 triglyceride, serum, fasting 546 mg/dL 30-200 HDL cholesterol, serum 39 mg/dL 32-96 LDL cholesterol, serum 167.00 mg/dL 5.00-130.00 hemoglobin A1C, blood, as % of total hemoglobin 7.7 % 4.3-6.0 sodium, serum 138 mmol/L 292-517 9222/08/21 potassium, serum 4.3 mmol/L 3.5-5.2 chloride, serum [...] 0-19 Encounters Code Encounter Date Provider Facility CPT-89699 Level 4 Est. Patient 11:29:55 CDT Baltazar Childers MD [facility] CPT-32382 Level 4 Est. Patient 14:15:19 CDT Baltazar Childers MD [facility] CPT-09123 Level 4 Est. Patient 12:20:13 CDT Baltazar Childers MD [facility] CPT-04684 Level 4 Est. Patient 14:52:45 SANDING LINE OPERATOR Baltazar Childers MD [facility] CPT-99754 Level 4 Est. Patient 14:18:34 SANDING LINE OPERATOR Baltazar Childers MD [facility] CPT-66577 Level 4 Est. Patient 15:18:29 CDT Baltazar Childers MD [facility] CPT-05613 Level 3 Est. Patient 12:45:34 CDT Baltazar Childers MD [facility] CPT-64429 Level 3 Est. Patient 10:10:11 CDT Baltazar Childers MD [facility] CPT-25896 Level 3 Est. Patient 14:07:50 CDT Baltazar Cihlders MD [facility] CPT-93816 Level 4 Est. Patient 12:26:10 SANDING LINE OPERATOR Baltazar Childers MD [facility] CPT-87526 Level 4 Est. Patient 14:45:38 CDT Baltazar Childers MD [facility] CPT-09128 Level 4 New Patient 12:30:48 CDT Baltazar hinton MD [facility] Procedures Code Procedure Name Date Entry Date Standard Desc ription CPT-82288 Venipuncture Draw Fee 12:10:27 SANDING LINE OPERATOR CPT-99031 Fluzone Quadrivalent Intramuscular Suspe nsion 0.5 ML 10:49:13 CDT CPT-79442 First Vx Component - Ix admi n via ID IM or jet inj without physician counseling 15:17:19 SANDING LINE OPERATOR CPT-09811 Pneumovax 15:17:19 SANDING LINE OPERATOR CPT-47688 Pneumovax 14:52:45 SANDING LINE OPERATOR CPT-93301 Venipuncture Draw Fee 14:06:30 SANDING LINE OPERATOR CPT-000 Give Appropriate Flu Vaccine 14:18:34 SANDING LINE OPERATOR 2 CPT-15566 Administration single or combination vac cine inc oral 14:46:00 SANDING LINE OPERATOR CPT-67017 Influenza split virus > age 3 14:46:00 SANDING LINE OPERATOR CPT-OV Office Visit 19:13:16 CDT CPT-66378 Zostavax 18:41:56 CDT CPT-35756 Administration single or combination vac cine inc oral 12:56:39 CDT CPT-49915 Zoster Vaccine (Zostavax) 12:56:39 CDT 2012 CPT-35289 Venipuncture Draw Fee 10:58:57 CDT CPT-33214 Sono pelvis non OB uterus ovaries cervix 17:45:04 CDT CPT-16552 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
--- OUTSIDE RECORDS SUMMARY | 2019-10-27 13:09 | XMS REPORT | Clinical Summary ---
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 Benign neoplasm of colon PERIPHERAL NEUROPATHY [...] ronary atherosclerosis of unspecified type of vessel, [place] or graft OTH NONSPC ABN FINDNG RAD&OTH [...] a day as needed 2014 NAPROXEN SODIUM 38811414063 Active Baltazar Childers MD Active FUROSEMIDE 40 MG TABS Take one by mouth daily FUROSEMIDE 42167577366 Active Baltazar Childers MD Active LISINOPRIL 20 MG TABS Take one by mouth daily at bedtime LISINOPRIL 28522387419 Active Baltazar Childers MD Active ONETOUCH ULTRA BLUE STRP Test twice a day GLUCO SE BLOOD 83732283646 No Longer Active Baltazar Childers MD Active TRUEPLUS LANCETS 33G MISC Test twice a day LANCET S 54289971456 Active Baltazar Childers MD Active TRUEDRAW LANCING DEVICE MISC Test twice a day L ANCET DEVICES 27234036876 Active Baltazar Childers MD Active TRUETRACK TEST STRP Test twice a day GLUCOSE BLOO D 21424911857 Active Baltazar Childers MD Active TRUETRACK BLOOD GLUCOSE W/DEVICE KIT Test twice a day BLOOD GLUCOSE MONITORING SUPPL 00837708554 Active Baltazar Childers MD Activ e HYDROCODONE-ACETAMINOPHEN 7.5-325 MG TABS Take 1 tab every 6-8 hour s PRN HYDROCODONE-ACETAMINOPHEN 20453890221 Active Baltazar Childers MD Active NORTRIPTYLINE HCL 50 MG CAPS 1 every night for neuropathy 4 NORTRIPTYLINE HCL 73144203894 Active Baltazar Childers MD Acti ve GABAPENTIN 300 MG CAPS 1 three times a day GABAPE NTIN 57405938061 Active Kelly Iraheta LPN Active GABAPENTIN 300 MG CAPS 1 po qd x 2 days, then 1 po BID x 2 d ays, then 1 po TID GABAPENTIN 15004704077 No Longer Active Baltazar silverman MD Active TRAMADOL HCL 50 MG TABS 1 twice a day as needed for pain TRAMADOL HCL 55545257956 Active Baltazar Childers MD Active NAPROXEN 500 MG TABS 1 tablet by mouth twice daily NAPROXEN 30169426122 No Longer Active Baltazar Childers MD Active PROAIR HFA 108 (90 BASE) MCG/ACT AERS 2 puffs four times a d ay as needed ALBUTEROL SULFATE 02503297215 Active Baltazar Childers MD Active DEPO-TESTOSTERONE 200 MG/ML OIL as directed RUFINO TOSTERONE CYPIONATE 85980734931 No Longer Active Baltazar Childers MD Active LIPITOR 20 MG TABS Take one by mouth daily in evening ATORVASTATIN CALCIUM 86024124839 No Longer Active Baltazar Childers MD Activ e CRESTOR 10 MG TABS 1 by mouth every day R OSUVASTATIN CALCIUM 19425619349 No Longer Active Baltazar Childers MD Activ e PHENTERMINE HCL 37.5 MG TABS Take one by mouth daily 2 PHENTERMINE HCL 42790341566 No Longer Active Baltazar Childers MD Activ e ROBAXIN-750 750 MG TABS Take one by mouth daily ME THOCARBAMOL 50536743745 Active Baltazar Childers MD Active TIZANIDINE HCL 4 MG TABS 1 daily as needed for muscle spasm 2011 TIZANIDINE HCL 14628331353 No Longer Active Dawna Salazar RN Active [id number]-[id number] 50-325-40 MG TABS 1 four time s a day as needed for heacache [id number] 09003683938 Active Baltazar Childers MD Active SUMATRIPTAN SUCCINATE 100 MG TABS 1 tablet by mouth at onset of migraine as needed SUMATRIPTAN SUCCINATE 42276818693 Active Baltazar bynum MD Active LORATADINE 10 MG TABS Take one by mouth daily LORATADINE 78824472022 Active Baltazar Childers MD Active OMEPRAZOLE 20 MG CPDR Take one by mouth daily OMEPRAZOLE 58200588605 Active Baltazar Childers MD Active HYDROXYZINE HCL 25 MG TABS Take one by mouth daily HYDROXYZINE HCL 18681956482 Active Dawna Lew Active GLIPIZIDE 10 MG TABS 1 tablet by mouth twice daily GLIPIZIDE 51253187274 Active Baltazar Childers MD Active ALPRAZOLAM 1 MG TABS 1 tablet by mouth daily at bedtime for restles s leg ALPRAZOLAM 61341159746 Active Baltazar Childers MD Active METFORMIN HCL 1000 MG TABS Take one by mouth twice daily METFORMIN HCL 35624767126 Active Baltazar Childers MD Active TIZANIDINE HCL 4 MG TABS 1 daily as needed for muscle spasm 2011 TIZANIDINE HCL 4 MG TABS 934695 TIZANIDINE HCL Inactiv e PHENTERMINE HCL 37.5 MG TABS Take one by mouth daily 2 PHENTERMINE HCL 37.5 MG TABS 360305 PHENTERMINE HCL Inactive CRESTOR 10 MG TABS 1 by mouth every day C RESTOR 10 MG TABS ROSUVASTATIN CALCIUM Inactive LIPITOR 20 MG TABS Take one by mouth daily in evening LIPITOR 20 MG TABS 323410 ATORVASTATIN CALCIUM Inactive DEPO-TESTOSTERONE 200 MG/ML OIL as directed 8 DEPO-TESTOSTERONE 200 MG/ML OIL 999113 TESTOSTERONE CYPIONATE Inactive NAPROXEN 500 MG TABS 1 tablet by mouth twice daily 201 07/27/22 NAPROXEN 500 MG TABS 339900 NAPROXEN Inactive GABAPENTIN 300 MG CAPS 1 po qd x 2 days, then 1 po BID x 2 d ays, then 1 po TID GABAPENTIN 300 MG CAPS 160617 GABAPENTIN Inact amie ONETOUCH ULTRA BLUE STRP Test twice a day ONETOUCH ULTRA BLUE STRP GLUCOSE BLOOD Inactive Immunizations Vaccine Administration Date Value Standard Floyd cription pneumococcal immunization administered Pneumovax 23 [CVX33] pneumococcal polysaccharide vaccine, 23 valent Seasonal influenza vaccine, injectable, containing preservative, for > 3 years old (Afluria, FluLaval, Fluzone, Fluvirin, Fluarix, Agriflu(>= 18 yo)) Fluzone (>3 yrs.) [[id number]] Influenza, seasonal, inject able Seasonal influenza vaccine, injectable, containing preservative, for > 3 years old (Afluria, FluLaval, Fluzone, Fluvirin, Fluarix, Agriflu(>= 18 yo)) Fluzone (>3 yrs.) [[id number]] Influenza, seasonal, inject able Vital Signs Date [...] - Chem istry sodium, serum 140 mmol/L 009-887 5242/05/05 potassium, serum 4.9 mmol/L 3.5-5.2 chloride, serum [...] Panel - Chemistry sodium, serum 139 mmol/L 285-515 5157/01/20 potassium, serum 5.3 mmol/L 3.5-5.2 chloride, serum [...] mg/g mg/g{creat} 0-29 cholesterol, serum 319 mg/dL 246-857 1647/08/21 triglyceride, serum, fasting 546 mg/dL 30-200 HDL cholesterol, serum 39 mg/dL 32-96 LDL cholesterol, serum 167.00 mg/dL 5.00-130.00 hemoglobin A1C, blood, as % of total hemoglobin 7.7 % 4.3-6.0 sodium, serum 138 mmol/L 058-000 2612/08/21 potassium, serum 4.3 mmol/L 3.5-5.2 chloride, serum [...] 0-19 Encounters Code Encounter Date Provider Facility CPT-80893 Level 4 Est. Patient 15:42:12 CDT Baltazar Childres MD [facility] CPT-62336 Level 4 Est. Patient 11:29:55 CDT Baltazar Childers MD [facility] CPT-45484 Level 4 Est. Patient 14:15:19 CDT Baltazar Childers MD [facility] CPT-76677 Level 4 Est. Patient 12:20:13 CDT Baltazar Childers MD [facility] CPT-73047 Level 4 Est. Patient 14:52:45 ELEVATOR OPERATOR Baltazar Childers MD [facility] CPT-24820 Level 4 Est. Patient 14:18:34 ELEVATOR OPERATOR Baltazar Childers MD [facility] CPT-13452 Level 4 Est. Patient 15:18:29 CDT Baltazar Childers MD [facility] CPT-08566 Level 3 Est. Patient 12:45:34 CDT Baltazar Childers MD [facility] CPT-72229 Level 3 Est. Patient 10:10:11 CDT Baltazar Childers MD [facility] CPT-94711 Level 3 Est. Patient 14:07:50 CDT Baltazar Childers MD [facility] CPT-62583 Level 4 Est. Patient 12:26:10 ELEVATOR OPERATOR Baltazar Childers MD [facility] CPT-95538 Level 4 Est. Patient 14:45:38 CDT Baltazar Childers MD [facility] CPT-33031 Level 4 New Patient 12:30:48 CDT Baltazar hinton MD [facility] Procedures Code Procedure Name Date Entry Date Standard Desc ription CPT-43538 Venipuncture Draw Fee 12:10:27 ELEVATOR OPERATOR CPT-45582 Fluzone Quadrivalent Intramuscular Suspe nsion 0.5 ML 10:49:13 CDT CPT-67253 First Vx Component - Ix admi n via ID IM or jet inj without physician counseling 15:17:19 ELEVATOR OPERATOR CPT-95890 Pneumovax 23 15:17:19 ELEVATOR OPERATOR CPT-89705 Pneumovax 14:52:45 ELEVATOR OPERATOR CPT-31657 Venipuncture Draw Fee 14:06:30 ELEVATOR OPERATOR CPT-000 Give Appropriate Flu Vaccine 14:18:34 ELEVATOR OPERATOR 2 CPT-08130 Administration single or combination vac cine inc oral 14:46:00 ELEVATOR OPERATOR CPT-61899 Influenza split virus > age 3 14:46:00 ELEVATOR OPERATOR CPT-OV Office Visit 19:13:16 CDT CPT-66121 Zostavax 18:41:56 CDT CPT-19824 Administration single or combination vac cine inc oral 12:56:39 CDT CPT-61200 Zoster Vaccine (Zostavax) 12:56:39 CDT 2012 CPT-29565 Venipuncture Draw Fee 10:58:57 CDT CPT-70379 Sono pelvis non OB uterus ovaries cervix 17:45:04 CDT CPT-53935 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
--- OUTSIDE RECORDS SUMMARY | 2019-10-27 13:09 | XMS REPORT | Clinical Summary ---
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 Benign neoplasm of colon PERIPHERAL NEUROPATHY 356.9 [...] ronary atherosclerosis of unspecified type of vessel, [place] or graft OTH NONSPC ABN FINDNG RAD&OTH [...] 1 tablet daily for 4 days AZITHROMYCIN 45851125314 Active Baltazar Wayne Active LANTUS SOLOSTAR 100 UNIT/ML SC SOPN 30 units SC daily INSULIN GLARGINE 38218930717 Active Baltazar Childers MD Active AMLODIPINE BESYLATE 5 MG ORAL TABS 1 tab daily for HTN AMLODIPINE BESYLATE 02245792427 Active Baltazar Childers MD Active SYNTHROID 0.1 MG TAB 1 tablet by mouth daily LE VOTHYROXINE SODIUM 91048782546 Active Baltazar Childers MD Active GLIPIZIDE 10 MG TAB take 2 tablets twice daily GLIPIZIDE 84216723536 Active Baltazar Childers MD Active SUCRALFATE 1 GM TABS 1 four times a day to coat the stomach 2015 SUCRALFATE 54366634352 No Longer Active Baltazar Childers MD Active PEN NEEDLES 31G X 6 MM MISC use 1 daily INSULIN PEN NEEDLE 64931769941 Active Gato Rae MD Active TOUJEO SOLOSTAR 300 UNIT/ML SC SOPN 10 units SC daily INSULIN GLARGINE 85193426745 No Longer Active Martita ARGUETA Active NAPROXEN SODIUM 220 MG ORAL TABS 1 three times a day as needed 2 NAPROXEN SODIUM 91836463401 No Longer Active Baltazar Childers MD Active ATORVASTATIN CALCIUM 20 MG ORAL TABS Take 1 tab daily ATORVASTATIN CALCIUM 96078777083 Active Baltazar Childers MD Active FUROSEMIDE 40 MG TABS Take one by mouth daily FUROSEMIDE 84052287610 Active Baltazar Childers MD Active LISINOPRIL 20 MG TABS Take one by mouth daily at bedtime LISINOPRIL 38479862357 No Longer Active Baltazar Childers MD Active ONETOUCH ULTRA BLUE STRP Test twice a day GLUCO SE BLOOD 00696061212 No Longer Active Baltazar Childers MD Active TRUEPLUS LANCETS 33G MISC Test twice a day LANCET S 61519154138 Active KENDALL Juarez Active TRUEDRAW LANCING DEVICE MISC Test twice a day L ANCET DEVICES 61886719601 Active Baltazar Childers MD Active TRUETRACK TEST STRP Test twice a day GLUCOSE BLOO D 66735876807 Active KENDALL Juarez Active TRUETRACK BLOOD GLUCOSE W/DEVICE KIT Test twice a day BLOOD GLUCOSE MONITORING SUPPL 22514795687 Active Baltazar Childers MD Activ e HYDROCODONE-ACETAMINOPHEN 7.5-325 MG TABS Take 1 tab every 6-8 hour s PRN HYDROCODONE-ACETAMINOPHEN 48795018463 Active Baltazar Childers MD Active NORTRIPTYLINE HCL 50 MG CAPS 1 every night for neuropathy 4 NORTRIPTYLINE HCL 97393555277 Active Baltazar Childers MD Acti ve GABAPENTIN 300 MG CAPS 1 three times a day GABAPE NTIN 50508480382 Active Baltazar Childers MD Active GABAPENTIN 300 MG CAPS 1 po qd x 2 days, then 1 po BID x 2 d ays, then 1 po TID GABAPENTIN 41374950925 No Longer Active Baltazar silverman MD Active TRAMADOL HCL 50 MG TABS 1 twice a day as needed for pain TRAMADOL HCL 46461120449 Active Baltazar Childers MD Active NAPROXEN 500 MG TABS 1 tablet by mouth twice daily NAPROXEN 24293032602 No Longer Active Baltazar Childers MD Active PROAIR HFA 108 (90 BASE) MCG/ACT AERS 2 puffs four times a d ay as needed ALBUTEROL SULFATE 19571899813 Active Baltazar Childers MD Active DEPO-TESTOSTERONE 200 MG/ML OIL as directed RUFINO TOSTERONE CYPIONATE 93519607931 No Longer Active Baltazar Childers MD Active LIPITOR 20 MG TABS Take one by mouth daily in evening ATORVASTATIN CALCIUM 91332143478 No Longer Active Baltazar Childers MD Activ e CRESTOR 10 MG TABS 1 by mouth every day R OSUVASTATIN CALCIUM 01685617709 No Longer Active Baltazar Childers MD Activ e PHENTERMINE HCL 37.5 MG TABS Take one by mouth daily 2 PHENTERMINE HCL 80976327830 No Longer Active Baltazar Childers MD Activ e ROBAXIN-750 750 MG TABS Take one by mouth daily ME THOCARBAMOL 62859392848 Active Baltazar Childers MD Active TIZANIDINE HCL 4 MG TABS 1 daily as needed for muscle spasm 2011 TIZANIDINE HCL 48775053798 No Longer Active Dawnatung Salazar RN Active [id number] 50-325-40 MG TABS 1 four time s a day as needed for heacache [id number] 32149425140 Active Bethrenetta Carr KENDALL Active SUMATRIPTAN SUCCINATE 100 MG TABS 1 tablet by mouth at onset of migraine as needed SUMATRIPTAN SUCCINATE 04999043536 Active Baltazar bynum MD Active LORATADINE 10 MG TABS Take one by mouth daily LORATADINE 46467714377 Active Baltazar Childers MD Active OMEPRAZOLE 20 MG CPDR Take one by mouth daily OMEPRAZOLE 42687519966 Active Baltazar Childers MD Active HYDROXYZINE HCL 25 MG TABS Take one by mouth daily HYDROXYZINE HCL 68265727972 Active Baltazar Childers MD Active ALPRAZOLAM 1 MG TABS 1 tablet by mouth daily at bedtime for restles s leg ALPRAZOLAM 20964867427 Active Baltazar Childers MD Active METFORMIN HCL 1000 MG TABS Take one by mouth twice daily METFORMIN HCL 53879792521 Active Baltazar Childers MD Active TIZANIDINE HCL 4 MG TABS 1 daily as needed for muscle spasm 2011 TIZANIDINE HCL 4 MG TABS 378402 TIZANIDINE HCL Inactiv e PHENTERMINE HCL 37.5 MG TABS Take one by mouth daily 2 PHENTERMINE HCL 37.5 MG TABS 175547 PHENTERMINE HCL Inactive CRESTOR 10 MG TABS 1 by mouth every day C RESTOR 10 MG TABS 334470 ROSUVASTATIN CALCIUM Inactive LIPITOR 20 MG TABS Take one by mouth daily in evening LIPITOR 20 MG TABS 888417 ATORVASTATIN CALCIUM Inactive DEPO-TESTOSTERONE 200 MG/ML OIL as directed 8 DEPO-TESTOSTERONE 200 MG/ML OIL 829877 TESTOSTERONE CYPIONATE Inactive NAPROXEN 500 MG TABS 1 tablet by mouth twice daily 201 07/27/22 NAPROXEN 500 MG TABS 473356 NAPROXEN Inactive GABAPENTIN 300 MG CAPS 1 po qd x 2 days, then 1 po BID x 2 d ays, then 1 po TID GABAPENTIN 300 MG [facility] 586774 GABAPENTIN Inact amie ONETOUCH ULTRA BLUE STRP Test twice a day ONETOUCH ULTRA BLUE STRP GLUCOSE BLOOD Inactive NAPROXEN SODIUM 220 MG ORAL TABS 1 three times a day as needed 2 NAPROXEN SODIUM 220 MG ORAL TABS 613785 NAPROXEN SODIUM Inactive TOUJEO SOLOSTAR 300 UNIT/ML SC SOPN 10 units SC daily TOUJEO SOLOSTAR 300 UNIT/ML SC SOPN INSULIN GLARGINE Inac tive SUCRALFATE 1 GM TABS 1 four times a day to coat the stomach 2015 SUCRALFATE 1 GM TABS 115351 SUCRALFATE Inactive Immunizations Vaccine Administration Date Value Standard Floyd cription pneumococcal immunization administered Pneumovax 23 [CVX33] pneumococcal polysaccharide vaccine, 23 valent Seasonal influenza vaccine, injectable, containing preservative, for > 3 years old (Afluria, FluLaval, Fluzone, Fluvirin, Fluarix, Agriflu(>= 18 yo)) Fluzone (>3 yrs.) [STW793] Influenza, seasonal, inject able Seasonal influenza vaccine, injectable, containing preservative, for > 3 years old (Afluria, FluLaval, Fluzone, Fluvirin, Fluarix, Agriflu(>= 18 yo)) Fluzone (>3 yrs.) [LPF036] Influenza, seasonal, inject able Vital Signs Date [...] C - Chemistry sodium, serum 143 mmol/L 484-580 4078/06/19 potassium, serum 5.9 mmol/L 3.5-5.2 chloride, serum 105 mmol/L 98-107 carbon dioxide, venous blood 30.2 mmol/L 21.0-32 .0 blood glucose 189 mg/dL 65-110 calcium, serum 9.7 mg/dL 8.5-10.1 urea nitrogen, blood 37 mg/dL 7-18 creatinine, serum 2.11 mg/dL 0.55-1.30 hemoglobin A1C, blood, as % of total hemoglobin 8.2 % 4.3-6.0 Lab Report: CBC, Renal Panel - Chemistry sodium, serum 142 mmol/L 092-561 9510/08/11 potassium, serum 4.8 mmol/L 3.5-5.2 chloride, serum [...] Panel - Chemistry sodium, serum 143 mmol/L 664-564 2764/12/19 carbon dioxide, venous blood 32.5 mmol/L 21.0-32 .0 potassium, serum 4.9 mmol/L 3.5-5.2 chloride, serum 101 mmol/L 98-107 blood glucose 129 mg/dL 65-110 urea nitrogen, blood 18 mg/dL 7-18 creatinine, serum 1.79 mg/dL 0.55-1.30 alanine aminotransferase (SGPT), serum 34 U/L 12-78 aspartate aminotransferase (SGOT), serum 26 U/L 15-37 calcium, serum 8.9 mg/dL 8.5-10.1 bilirubin, serum, total 0.30 mg/dL 0.00-1.00 cholesterol, serum 214 mg/dL 546-803 7511/12/19 triglyceride, serum, fasting 351 mg/dL 30-200 HDL [...] 4.3-6.0 Encounters Code Encounter Date Provider Facility CPT-56799 Level 4 Est. Patient 12:25:11 CDT Baltazar Childers MD [facility] CPT-28929 Level 4 Est. Patient 14:22:31 CDT Baltazar Childers MD [facility] CPT-27653 Level 4 Est. Patient 15:44:38 CDT Shonna Parker APRN [facility] CPT-71714 Level 4 Est. Patient 11:34:17 CDT Baltazar Childers MD [facility] CPT-64871 Level 3 Est. Patient 16:40:40 CDT Baltazar Childers MD [facility] CPT-54017 Level 4 Est. Patient 10:41:24 CDT Baltazar Childers MD [facility] CPT-60070 Level 4 Est. Patient 16:01:48 CDT Baltazar Childers MD [facility] CPT-92784 Level 4 Est. Patient 16:54:07 PEST TECHNICIAN Baltazar Childers MD [facility] CPT-56580 Level 4 Est. Patient 15:42:12 CDT Baltazar Childers MD [facility] CPT-33926 Level 4 Est. Patient 11:29:55 CDT Baltazar Childers MD [facility] CPT-12518 Level 4 Est. Patient 14:15:19 CDT Baltazar Childers MD [facility] CPT-56551 Level 4 Est. Patient 12:20:13 CDT Baltazar Childers MD [facility] CPT-10788 Level 4 Est. Patient 14:52:45 PEST TECHNICIAN Baltazar Childers MD [facility] CPT-79392 Level 4 Est. Patient 14:18:34 PEST TECHNICIAN Baltazar Childers MD [facility] CPT-92986 Level 4 Est. Patient 15:18:29 CDT Baltazar Childers MD [facility] CPT-94982 Level 3 Est. Patient 12:45:34 CDT Baltazar Childers MD [facility] CPT-80787 Level 3 Est. Patient 10:10:11 CDT Baltazar Childers MD [facility] CPT-26311 Level 3 Est. Patient 14:07:50 CDT Baltazar Childers MD [facility] CPT-52067 Level 4 Est. Patient 12:26:10 PEST TECHNICIAN Baltazar Childers MD [facility] CPT-39775 Level 4 Est. Patient 14:45:38 CDT Baltazar Childers MD [facility] CPT-41609 Level 4 New Patient 12:30:48 CDT Baltazar hinton MD [facility] Procedures Code Procedure Name Date Entry Date Standard Desc ription CPT-68651 First Vx - Ix admin via ID I M or jet injects without counseling by physician 13:08:59 CDT CPT-17086 Fluzone Quadrivalent Intramuscular Suspe nsion 0.5 ML 13:08:59 CDT CPT-56556 Venipuncture Draw Fee 12:04:12 CDT CPT-63022 Lipid - LAB USE ONLY 17:39:15 PEST TECHNICIAN 9 CPT-60692 HGBA1C - LAB USE ONLY 17:39:15 PEST TECHNICIAN CPT-81272 CMP - LAB USE ONLY 17:39:14 PEST TECHNICIAN CPT-17183 Venipuncture Draw Fee 17:39:14 PEST TECHNICIAN CPT-76416 First Vx - Ix admin via ID I M or jet injects without counseling by physician 16:55:17 PEST TECHNICIAN CPT-47148 Fluzone Quadrivalent Intramuscular Suspe nsion 0.5 ML 16:55:17 PEST TECHNICIAN CPT-90279 Renal Panel - LAB USE ONLY 17:39:20 CDT 201 10/31/07 CPT-71388 CBC - LAB USE ONLY 17:39:20 CDT CPT-97094 Venipuncture Draw Fee 17:39:20 CDT CPT-27427 Venipuncture Draw Fee 14:33:30 CDT CPT-40644 Renal Panel - LAB USE ONLY 14:33:30 CDT 201 10/31/07 CPT-72968 CBC - LAB USE ONLY 14:33:29 CDT CPT-87837 Venipuncture Draw Fee 14:50:21 PEST TECHNICIAN CPT-97785 Immunization Single Admin 17:35:35 CDT 2014 CPT-15318 Fluzone Quadrivalent preservative free ( >=3yrs.) 17:35:35 CDT CPT-03963 Venipuncture Draw Fee 12:10:27 PEST TECHNICIAN CPT-07945 Fluzone Quadrivalent Intramuscular Suspe nsion 0.5 ML 10:49:13 CDT CPT-95384 First Vx Component - Ix admi n via ID IM or jet inj without physician counseling 15:17:19 PEST TECHNICIAN CPT-19703 Pneumovax 23 15:17:19 PEST TECHNICIAN CPT-10308 Pneumovax 14:52:45 PEST TECHNICIAN CPT-71471 Venipuncture Draw Fee 14:06:30 PEST TECHNICIAN CPT-000 Give Appropriate Flu Vaccine 14:18:34 PEST TECHNICIAN 2 CPT-24661 Administration single or combination vac cine inc oral 14:46:00 PEST TECHNICIAN CPT-04625 Influenza split virus > age 3 14:46:00 PEST TECHNICIAN CPT-OV Office Visit 19:13:16 CDT CPT-32480 Zostavax 18:41:56 CDT CPT-77746 Administration single or combination vac cine inc oral 12:56:39 CDT CPT-40066 Zoster Vaccine (Zostavax) 12:56:39 CDT 2012 CPT-12470 Venipuncture Draw Fee 10:58:57 CDT CPT-66361 Sono pelvis non OB uterus ovaries cervix 17:45:04 CDT CPT-57822 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
--- OUTSIDE RECORDS SUMMARY | 2019-10-27 13:09 | XMS REPORT | Clinical Summary ---
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 Benign neoplasm of colon PERIPHERAL NEUROPATHY 356.9 Active Baltazar Nickerson MD Unspecified hereditary and idiopathic peripheral neuropathy PERSONAL HISTORY OF COLONIC POLYPS V12.72 Active 2 Lolis hTomas APRN Personal history of colonic polyps PARESTHESIA, [...] tablet by mouth daily LE VOTHYROXINE SODIUM 89610583041 Active Carina Tucker LPN Active GLIPIZIDE 10 MG TAB take 2 tablets twice daily GLIPIZIDE 50288187452 Active Carina Tucker LPN Active SUCRALFATE 1 GM TABS 1 four times a day to coat the stomach 2015 SUCRALFATE 23745208989 No Longer Active Baltazar Childers MD Active PEN NEEDLES 31G X 6 MM MISC use 1 daily INSULIN PEN NEEDLE 45363355104 Active Bella Suarez PRECISION FARMING COORDINATOR Active TOURINKUO SOLOSTAR 300 UNIT/ML SC SOPN 10 units SC daily INSULIN GLARGINE 70991558657 No Longer Active Martita Godinez KENDALL Active LANTUS SOLOSTAR 100 UNIT/ML SC SOPN 10 units SC daily INSULIN GLARGINE 95589371325 Active Baltazar Childers MD Active NAPROXEN SODIUM 220 MG ORAL TABS 1 three times a day as needed 2 NAPROXEN SODIUM 44662872394 No Longer Active Baltazar Childers MD Active ATORVASTATIN CALCIUM 20 MG ORAL TABS Take 1 tab daily ATORVASTATIN CALCIUM 78518018932 Active Baltazar Childers MD Active FUROSEMIDE 40 MG TABS Take one by mouth daily FUROSEMIDE 01664445070 Active Baltazar Childers MD Active LISINOPRIL 20 MG TABS Take one by mouth daily at bedtime LISINOPRIL 39652104121 Active KENDALL Juarez Active ONETOUCH ULTRA BLUE STRP Test twice a day GLUCO SE BLOOD 18436420667 No Longer Active Baltazar Childers MD Active TRUEPLUS LANCETS 33G MISC Test twice a day LANCET S 24285784259 Active KENDALL Juarez Active TRUEDRAW LANCING DEVICE MISC Test twice a day L ANCET DEVICES 76549303940 Active Baltazar Childers MD Active TRUETRACK TEST STRP Test twice a day GLUCOSE BLOO D 31541895260 Active KENDALL Juarez Active TRUETRACK BLOOD GLUCOSE W/DEVICE KIT Test twice a day BLOOD GLUCOSE MONITORING SUPPL 34854868868 Active Baltazar Childers MD Activ e HYDROCODONE-ACETAMINOPHEN 7.5-325 MG TABS Take 1 tab every 6-8 hour s PRN HYDROCODONE-ACETAMINOPHEN 96432364694 Active Shonna Parker APRN Active NORTRIPTYLINE HCL 50 MG CAPS 1 every night for neuropathy 4 NORTRIPTYLINE HCL 50388487464 Active Baltazar Childers MD Acti ve GABAPENTIN 300 MG CAPS 1 three times a day GABAPE NTIN 84696541111 Active Baltazar Childers MD Active GABAPENTIN 300 MG CAPS 1 po qd x 2 days, then 1 po BID x 2 d ays, then 1 po TID GABAPENTIN 88381419024 No Longer Active Baltazar silverman MD Active TRAMADOL HCL 50 MG TABS 1 twice a day as needed for pain TRAMADOL HCL 30779260718 Active Shonna Parker APRN Active NAPROXEN 500 MG TABS 1 tablet by mouth twice daily NAPROXEN 23061314711 No Longer Active Baltazar Childers MD Active PROAIR HFA 108 (90 BASE) MCG/ACT AERS 2 puffs four times a d ay as needed ALBUTEROL SULFATE 48492161384 Active KENDALL Juarez Active DEPO-TESTOSTERONE 200 MG/ML OIL as directed RUFINO TOSTERONE CYPIONATE 07618178992 No Longer Active Baltazar Childers MD Active LIPITOR 20 MG TABS Take one by mouth daily in evening ATORVASTATIN CALCIUM 41470631442 No Longer Active Baltazar Childers MD Activ e CRESTOR 10 MG TABS 1 by mouth every day R OSUVASTATIN CALCIUM 65533862770 No Longer Active Baltazar Childers MD Activ e PHENTERMINE HCL 37.5 MG TABS Take one by mouth daily 2 PHENTERMINE HCL 91386785684 No Longer Active Baltazar Childers MD Activ e ROBAXIN-750 750 MG TABS Take one by mouth daily ME THOCARBAMOL 56774619110 Active Baltazar Childers MD Active TIZANIDINE HCL 4 MG TABS 1 daily as needed for muscle spasm 2011 TIZANIDINE HCL 62641855702 No Longer Active Dawna Salazar RN Active MOORGVMAIS-CSTC-SYRNFXHW 50-325-40 MG TABS 1 four time s a day as needed for heacache [id number]-YKYA-[id number] 46698961128 Active Shonna Parker APRN Active SUMATRIPTAN SUCCINATE 100 MG TABS 1 tablet by mouth at onset of migraine as needed SUMATRIPTAN SUCCINATE 14773464342 Active Shonna Villaseñor er PRECISION FARMING COORDINATOR Active LORATADINE 10 MG TABS Take one by mouth daily LORATADINE 68900609196 Active Baltazar Childers MD Active OMEPRAZOLE 20 MG CPDR Take one by mouth daily OMEPRAZOLE 16864630872 Active KENDALL Juarez Active HYDROXYZINE HCL 25 MG TABS Take one by mouth daily HYDROXYZINE HCL 99569534088 Active Baltazar Childers MD Active ALPRAZOLAM 1 MG TABS 1 tablet by mouth daily at bedtime for restles s leg ALPRAZOLAM 34094534188 Active Baltazar Childers MD Active METFORMIN HCL 1000 MG TABS Take one by mouth twice daily METFORMIN HCL 02543113440 Active Baltazar Childers MD Active TIZANIDINE HCL 4 MG TABS 1 daily as needed for muscle spasm 2011 TIZANIDINE HCL 4 MG TABS 445748 TIZANIDINE HCL Inactiv e PHENTERMINE HCL 37.5 MG TABS Take one by mouth daily 2 PHENTERMINE HCL 37.5 MG TABS 778622 PHENTERMINE HCL Inactive CRESTOR 10 MG TABS 1 by mouth every day C RESTOR 10 MG TABS 675182 ROSUVASTATIN CALCIUM Inactive LIPITOR 20 MG TABS Take one by mouth daily in evening LIPITOR 20 MG TABS 911284 ATORVASTATIN CALCIUM Inactive DEPO-TESTOSTERONE 200 MG/ML OIL as directed 8 DEPO-TESTOSTERONE 200 MG/ML OIL 716649 TESTOSTERONE CYPIONATE Inactive NAPROXEN 500 MG TABS 1 tablet by mouth twice daily 201 07/27/22 NAPROXEN 500 MG TABS 064662 NAPROXEN Inactive GABAPENTIN 300 MG CAPS 1 po qd x 2 days, then 1 po BID x 2 d ays, then 1 po TID GABAPENTIN 300 MG CAPS 444690 GABAPENTIN Inact amie ONETOUCH ULTRA BLUE STRP Test twice a day ONETOUCH ULTRA BLUE STRP GLUCOSE BLOOD Inactive NAPROXEN SODIUM 220 MG ORAL TABS 1 three times a day as needed 2 NAPROXEN SODIUM 220 MG ORAL TABS 773203 NAPROXEN SODIUM Inactive TOUJEO SOLOSTAR 300 UNIT/ML SC SOPN 10 units SC daily TOUJEO SOLOSTAR 300 UNIT/ML SC SOPN INSULIN GLARGINE Inac tive SUCRALFATE 1 GM TABS 1 four times a day to coat the stomach 2015 SUCRALFATE 1 GM TABS 341586 SUCRALFATE Inactive Immunizations Vaccine Administration Date Value Standard Floyd cription pneumococcal immunization administered Pneumovax 23 [CVX33] pneumococcal polysaccharide vaccine, 23 valent Seasonal influenza vaccine, injectable, containing preservative, for > 3 years old (Afluria, FluLaval, Fluzone, Fluvirin, Fluarix, Agriflu(>= 18 yo)) Fluzone (>3 yrs.) [[id number]] Influenza, seasonal, inject able Seasonal influenza vaccine, injectable, containing preservative, for > 3 years old (Afluria, FluLaval, Fluzone, Fluvirin, Fluarix, Agriflu(>= 18 yo)) Fluzone (>3 yrs.) [TCQ524] Influenza, seasonal, inject able Vital Signs Date [...] C - Chemistry sodium, serum 139 mmol/L 575-047 1846/07/07 potassium, serum 4.5 mmol/L 3.5-5.2 chloride, serum [...] Panel - Chemistry sodium, serum 143 mmol/L 964-904 7949/12/19 carbon dioxide, venous blood 32.5 mmol/L 21.0-32 .0 potassium, serum 4.9 mmol/L 3.5-5.2 chloride, serum 101 mmol/L 98-107 blood glucose 129 mg/dL 65-110 urea nitrogen, blood 18 mg/dL 7-18 creatinine, serum 1.79 mg/dL 0.55-1.30 alanine aminotransferase (SGPT), serum 34 U/L 12-78 aspartate aminotransferase (SGOT), serum 26 U/L 15-37 calcium, serum 8.9 mg/dL 8.5-10.1 bilirubin, serum, total 0.30 mg/dL 0.00-1.00 cholesterol, serum 214 mg/dL 683-257 1279/12/19 triglyceride, serum, fasting 351 mg/dL 30-200 HDL [...] Panel - Chemistry sodium, serum 141 mmol/L 241-058 0919/08/08 potassium, serum 4.9 mmol/L 3.5-5.2 chloride, serum 101 mmol/L 98-107 carbon dioxide, venous blood 34.1 mmol/L 21.0-32 .0 creatinine, serum 1.98 mg/dL 0.55-1.30 blood glucose 193 mg/dL 65-110 urea nitrogen, blood 30 mg/dL 7-18 calcium, serum 9.8 mg/dL 8.5-10.1 Encounters Code Encounter Date Provider Facility CPT-73782 Level 4 Est. Patient 15:44:38 CDT Shonna Parker APRN [facility] CPT-41258 Level 4 Est. Patient 11:34:17 CDT Baltazar Childers MD [facility] CPT-10553 Level 3 Est. Patient 16:40:40 CDT Baltazar Childers MD [facility] CPT-02893 Level 4 Est. Patient 10:41:24 CDT Baltazar Childers MD [facility]-03089 Level 4 Est. Patient 16:01:48 CDT Baltazar Childers MD [facility]-14105 Level 4 Est. Patient 16:54:07 CLOUD OPERATIONS ENGINEER Baltazar Childers MD [facility]-08510 Level 4 Est. Patient 15:42:12 CDT Baltazar Childers MD [facility] CPT-53922 Level 4 Est. Patient 11:29:55 CDT Baltazar Childers MD [facility] [place]-86916 Level 4 Est. Patient 14:15:19 CDT Baltazar Childers MD [facility] [place]-39505 Level 4 Est. Patient 12:20:13 CDT Baltazar Childers MD [facility] [place]-63788 Level 4 Est. Patient 14:52:45 CLOUD OPERATIONS ENGINEER Baltazar Childers MD [facility] [place]-33405 Level 4 Est. Patient 14:18:34 CLOUD OPERATIONS ENGINEER Baltazar Childers MD [facility] [place]-05721 Level 4 Est. Patient 15:18:29 CDT Baltazar Childers MD [facility] [place]-06048 Level 3 Est. Patient 12:45:34 CDT Baltazar Childers MD [facility] [place]-45384 Level 3 Est. Patient 10:10:11 CDT Baltazar Childers MD [facility] [place]-82508 Level 3 Est. Patient 14:07:50 CDT Baltazar Childers MD [facility] [place]-37863 Level 4 Est. Patient 12:26:10 CLOUD OPERATIONS ENGINEER Baltazar Childers MD [facility] [place]-80450 Level 4 Est. Patient 14:45:38 CDT Baltazar Childers MD [facility] CPT-59696 Level 4 New Patient 12:30:48 CDT Baltazar hinton MD [facility] Procedures Code Procedure Name Date Entry Date Standard Desc ription CPT-64390 Lipid - LAB USE ONLY 17:39:15 CLOUD OPERATIONS ENGINEER 9 CPT-56401 HGBA1C - LAB USE ONLY 17:39:15 CLOUD OPERATIONS ENGINEER CPT-89375 CMP - LAB USE ONLY 17:39:14 CLOUD OPERATIONS ENGINEER CPT-83322 Venipuncture Draw Fee 17:39:14 CLOUD OPERATIONS ENGINEER CPT-64299 First Vx - Ix admin via ID I M or jet injects without counseling by physician 16:55:17 CLOUD OPERATIONS ENGINEER CPT-32402 Fluzone Quadrivalent Intramuscular Suspe nsion 0.5 ML 16:55:17 CLOUD OPERATIONS ENGINEER CPT-05243 Renal Panel - LAB USE ONLY 17:39:20 CDT 201 10/31/07 CPT-98467 CBC - LAB USE ONLY 17:39:20 CDT CPT-28313 Venipuncture Draw Fee 17:39:20 CDT CPT-75730 Venipuncture Draw Fee 14:33:30 CDT CPT-37806 Renal Panel - LAB USE ONLY 14:33:30 CDT 201 10/31/07 CPT-04366 CBC - LAB USE ONLY 14:33:29 CDT CPT-19423 Venipuncture Draw Fee 14:50:21 CLOUD OPERATIONS ENGINEER CPT-86459 Immunization Single Admin 17:35:35 CDT 2014 CPT-78914 Fluzone Quadrivalent preservative free ( >=3yrs.) 17:35:35 CDT CPT-26753 Venipuncture Draw Fee 12:10:27 CLOUD OPERATIONS ENGINEER CPT-29030 Fluzone Quadrivalent Intramuscular Suspe nsion 0.5 ML 10:49:13 CDT CPT-71178 First Vx Component - Ix admi n via ID IM or jet inj without physician counseling 15:17:19 CLOUD OPERATIONS ENGINEER CPT-64333 Pneumovax 23 15:17:19 CLOUD OPERATIONS ENGINEER CPT-90816 Pneumovax 14:52:45 CLOUD OPERATIONS ENGINEER CPT-11800 Venipuncture Draw Fee 14:06:30 CLOUD OPERATIONS ENGINEER CPT-000 Give Appropriate Flu Vaccine 14:18:34 CLOUD OPERATIONS ENGINEER 2 CPT-70605 Administration single or combination vac cine inc oral 14:46:00 CLOUD OPERATIONS ENGINEER CPT-07782 Influenza split virus > age 3 14:46:00 CLOUD OPERATIONS ENGINEER CPT-OV Office Visit 19:13:16 CDT CPT-96683 Zostavax 18:41:56 CDT CPT-21257 Administration single or combination vac cine inc oral 12:56:39 CDT CPT-87223 Zoster Vaccine (Zostavax) 12:56:39 CDT 2012 CPT-58989 Venipuncture Draw Fee 10:58:57 CDT CPT-57622 Sono pelvis non OB uterus ovaries cervix 17:45:04 CDT CPT-00136 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
--- OUTSIDE RECORDS SUMMARY | 2019-10-27 13:09 | XMS REPORT | Clinical Summary ---
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 Benign neoplasm of colon PERIPHERAL NEUROPATHY 356.9 [...] y atherosclerosis of unspecified type of vessel, [place] [...] MISC Test twice a day LANCET S 88739830716 Active Baltazar Childers MD Active TRUEDRAW LANCING DEVICE MISC Test twice a day L ANCET DEVICES 09299547916 Active Baltazar Childers MD Active TRUETRACK TEST STRP Test twice a day GLUCOSE BLOO D 46488189389 Active Baltazar Childers MD Active TRUETRACK BLOOD GLUCOSE W/DEVICE KIT Test twice a day BLOOD GLUCOSE MONITORING SUPPL 87250234817 Active Bella Suarez APRN Active HYDROCODONE-ACETAMINOPHEN 7.5-325 MG TABS Take 1 tab every 6-8 hour s PRN HYDROCODONE-ACETAMINOPHEN 62679480509 Active Baltazar Childers MD Active NORTRIPTYLINE HCL 50 MG CAPS 1 every night for neuropathy 4 NORTRIPTYLINE HCL 48653072371 Active Bella Suarez APRN Active GABAPENTIN 300 MG CAPS 1 three times a day GABAPE NTIN 25949594830 Active Baltazar Childers MD Active GABAPENTIN 300 MG CAPS 1 po qd x 2 days, then 1 po BID x 2 d ays, then 1 po TID GABAPENTIN 98522423398 No Longer Active Baltazar silverman MD Active TRAMADOL HCL 50 MG TABS 1 twice a day as needed for pain TRAMADOL HCL 39593291012 Active Baltazar Childers MD Active NAPROXEN 500 MG TABS 1 tablet by mouth twice daily NAPROXEN 42009921019 No Longer Active Baltazar Childers MD Active PROAIR HFA 108 (90 BASE) MCG/ACT AERS 2 puffs four times a d ay as needed ALBUTEROL SULFATE 37240801306 Active Baltazar Childers MD Active DEPO-TESTOSTERONE 200 MG/ML OIL as directed RUFINO TOSTERONE CYPIONATE 76710207655 No Longer Active Baltazar Childers MD Active LIPITOR 20 MG TABS Take one by mouth daily in evening ATORVASTATIN CALCIUM 99408875807 No Longer Active Baltazar Childers MD Activ e CRESTOR 10 MG TABS 1 by mouth every day R OSUVASTATIN CALCIUM 75143466421 No Longer Active Baltazar Childers MD Activ e PHENTERMINE HCL 37.5 MG TABS Take one by mouth daily 2 PHENTERMINE HCL 32484156945 No Longer Active Baltazar Childers MD Activ e ROBAXIN-750 750 MG TABS Take one by mouth daily ME THOCARBAMOL 58400162111 Active Baltazar Childers MD Active TIZANIDINE HCL 4 MG TABS 1 daily as needed for muscle spasm 2011 TIZANIDINE HCL 41353411887 No Longer Active Dawna Salazar RN Active [employer] PowerUCH ULTRA BLUE STRP Test twice a day GLUCO SE BLOOD 38156060629 Active Baltazar Childers MD Active GDTYADUNFI-BHAN-ERXGHQNE 50-325-40 MG TABS 1 four time s a day as needed for heacache ZLCGONZXGF-TLZM-TGWYROLM 20714322863 Active Baltazar Childers MD Active SUMATRIPTAN SUCCINATE 100 MG TABS 1 tablet by mouth at onset of migraine as needed SUMATRIPTAN SUCCINATE 93218404466 Active Baltazar barron MD Active LORATADINE 10 MG TABS Take one by mouth daily LORATADINE 31134882186 Active Baltazar Childers MD Active FUROSEMIDE 40 MG TABS Take one by mouth daily FUROSEMIDE 42551631561 Active Baltazar Childers MD Active LISINOPRIL 20 MG TABS Take one by mouth daily at bedtime LISINOPRIL 32078073930 Active Bella Suarez APRN Active OMEPRAZOLE 20 MG CPDR Take one by mouth daily OMEPRAZOLE 92344455932 Active Baltazar Childers MD Active HYDROXYZINE HCL 25 MG TABS Take one by mouth daily HYDROXYZINE HCL 44004485481 Active Baltazar Childers MD Active GLIPIZIDE 10 MG TABS 1 tablet by mouth twice daily GLIPIZIDE 04237248222 Active Baltazar Childers MD Active ALPRAZOLAM 1 MG TABS 1 tablet by mouth daily at bedtime for restles s leg ALPRAZOLAM 40987733995 Active Baltazar Childers MD Active METFORMIN HCL 1000 MG TABS Take one by mouth twice daily METFORMIN HCL 44462514225 Active Baltazar Childers MD Active TIZANIDINE HCL 4 MG TABS 1 daily as needed for muscle spasm 2011 TIZANIDINE HCL 4 MG TABS 663299 TIZANIDINE HCL Inactiv e PHENTERMINE HCL 37.5 MG TABS Take one by mouth daily 2 PHENTERMINE HCL 37.5 MG TABS 545902 PHENTERMINE HCL Inactive CRESTOR 10 MG TABS 1 by mouth every day C RESTOR 10 MG TABS ROSUVASTATIN CALCIUM Inactive LIPITOR 20 MG TABS Take one by mouth daily in evening LIPITOR 20 MG TABS 518990 ATORVASTATIN CALCIUM Inactive DEPO-TESTOSTERONE 200 MG/ML OIL as directed 8 DEPO-TESTOSTERONE 200 MG/ML OIL 330500 TESTOSTERONE CYPIONATE Inactive NAPROXEN 500 MG TABS 1 tablet by mouth twice daily 201 07/27/22 NAPROXEN 500 MG TABS 634503 NAPROXEN Inactive GABAPENTIN 300 MG CAPS 1 po qd x 2 days, then 1 po BID x 2 d ays, then 1 po TID GABAPENTIN 300 MG CAPS 080016 GABAPENTIN Inact amie Immunizations Vaccine Administration Date Value Standard Floyd cription pneumococcal immunization administered Pneumovax 23 [CVX33] pneumococcal polysaccharide vaccine, 23 valent Seasonal influenza vaccine, injectable, containing preservative, for > 3 years old (Afluria, FluLaval, Fluzone, Fluvirin, Fluarix, Agriflu(>= 18 yo)) Fluzone (>3 yrs.) [WFV715] Influenza, seasonal, inject able Seasonal influenza vaccine, injectable, containing preservative, for > 3 years old (Afluria, FluLaval, Fluzone, Fluvirin, Fluarix, Agriflu(>= 18 yo)) Fluzone (>3 yrs.) [QER774] Influenza, seasonal, inject able Vital Signs Date [...] % 36.0-46.0 hemoglobin, blood 11.6 g/dL 12.0-16.0 erythrocyte (RBC) count 3.65 10^6/MM^3 10*6/mm3 4.04-5.4 8 leukocyte count, blood 4.9 10^3/MM^3 10*3/mm3 4.6-10.2 mean corpuscular hemoglobin, RBC 31.7 pg 27. 0-31.2 mean corpuscular hemoglobin concentration, RBC 33.0 G/DL % 31.8-35.4 red blood cell distribution width 14.4 % 11 .6-14.8 platelet count 273 10^3/MM^3 10*3/mm3 142-424 Lab Report: CBC, Renal Panel - Chemistry sodium, serum 139 mmol/L 642-120 2550/01/20 potassium, serum 5.3 mmol/L 3.5-5.2 chloride, serum 99 mmol/L 98-107 carbon dioxide, venous blood 32.0 mmol/L 21.0-32 .0 blood glucose 200 mg/dL 65-110 urea nitrogen, blood 19 mg/dL 7-18 creatinine, serum 1.60 mg/dL 0.60-1.30 calcium, serum 9.5 mg/dL 8.5-10.1 Lab Report: CBC, Renal Panel - Hematolog y hemoglobin, blood 11.9 g/dL 12.0-16.0 hematocrit, blood 35.6 % 36.0-46.0 mean corpuscular volume, RBC 96 fL 80-97 mean corpuscular hemoglobin, RBC 32.0 pg 27. 0-31.2 leukocyte count, blood 4.7 10^3/MM^3 10*3/mm3 4.6-10.2 erythrocyte (RBC) count 3.70 10^6/MM^3 10*6/mm3 4.04-5.4 8 mean corpuscular hemoglobin concentration, RBC 33.3 G/DL % 31.8-35.4 red blood cell distribution width 14.9 % 11 .6-14.8 platelet count 262 10^3/MM^3 10*3/mm3 142-424 Lab Report: MICROALBUMIN, Lipid Panel, H GBA1C, Comp. Metabolic Panel - Chemistry alanine aminotransferase (SGPT), serum 54 U/L 12-78 aspartate aminotransferase (SGOT), serum 29 U/L 15-37 alkaline phosphatase, serum 55 U/L 50-136 calcium, serum 9.8 mg/dL 8.5-10.1 bilirubin, serum, total 0.20 mg/dL 0.00-1.00 albumin/creatinine ratio, urine 30 - 300 mg/g mg/g{creat} 0-29 cholesterol, serum 319 mg/dL 039-991 7506/08/21 triglyceride, serum, fasting 546 mg/dL 30-200 HDL cholesterol, serum 39 mg/dL 32-96 LDL cholesterol, serum 167.00 mg/dL 5.00-130.00 hemoglobin A1C, blood, as % of total hemoglobin 7.7 % 4.3-6.0 sodium, serum 138 mmol/L 471-485 5529/08/21 potassium, serum 4.3 mmol/L 3.5-5.2 chloride, serum 100 mmol/L 98-107 carbon dioxide, venous blood 33.2 mmol/L 21.0-32 .0 blood glucose 138 mg/dL 65-110 urea nitrogen, blood 13 mg/dL 7-18 creatinine, serum 1.40 mg/dL 0.60-1.30 Lab Report: MICROALBUMIN, Lipid Panel, H GBA1C, Comp. Metabolic Panel - Lab microalbumin, urine 10 0-19 Encounters Code Encounter Date Provider Facility CPT-56358 Level 4 Est. Patient 14:15:19 CDT Baltazar Childers MD [facility] CPT-94464 Level 4 Est. Patient 12:20:13 CDT Baltazar Childers MD [facility] CPT-53646 Level 4 Est. Patient 14:52:45 RELAY CHECKER Baltazar Childers MD [facility] CPT-40000 Level 4 Est. Patient 14:18:34 RELAY CHECKER Baltazar Childers MD [facility] CPT-95738 Level 4 Est. Patient 15:18:29 CDT Baltazar Childers MD [facility] CPT-69623 Level 3 Est. Patient 12:45:34 CDT Baltazar Childers MD [facility] CPT-45353 Level 3 Est. Patient 10:10:11 CDT Baltazar Childers MD [facility] CPT-34675 Level 3 Est. Patient 14:07:50 CDT Baltazar Childers MD [facility] CPT-30058 Level 4 Est. Patient 12:26:10 RELAY CHECKER Baltazar Childers MD [facility] CPT-69062 Level 4 Est. Patient 14:45:38 CDT Baltazar Childers MD [facility] CPT-58095 Level 4 New Patient 12:30:48 CDT Baltazar hinton MD [facility] Procedures Code Procedure Name Date Entry Date Standard Desc ription CPT-63014 Venipuncture Draw Fee 12:10:27 RELAY CHECKER CPT-00257 Fluzone Quadrivalent Intramuscular Suspe nsion 0.5 ML 10:49:13 CDT CPT-01449 First Vx Component - Ix admi n via ID IM or jet inj without physician counseling 15:17:19 RELAY CHECKER CPT-62402 Pneumovax 23 15:17:19 RELAY CHECKER CPT-47637 Pneumovax 14:52:45 RELAY CHECKER CPT-28901 Venipuncture Draw Fee 14:06:30 RELAY CHECKER CPT-000 Give Appropriate Flu Vaccine 14:18:34 RELAY CHECKER 2 CPT-77895 Administration single or combination vac cine inc oral 14:46:00 RELAY CHECKER CPT-44510 Influenza split virus > age 3 14:46:00 RELAY CHECKER CPT-OV Office Visit 19:13:16 CDT CPT-82358 Zostavax 18:41:56 CDT CPT-94123 Administration single or combination vac cine inc oral 12:56:39 CDT CPT-88920 Zoster Vaccine (Zostavax) 12:56:39 CDT 2012 CPT-72406 Venipuncture Draw Fee 10:58:57 CDT CPT-69183 Sono pelvis non OB uterus ovaries cervix 17:45:04 CDT CPT-76188 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
--- OUTSIDE RECORDS SUMMARY | 2019-10-27 13:10 | XMS REPORT | Clinical Summary ---
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 Benign neoplasm of colon PERIPHERAL NEUROPATHY [...] 1 tab daily for HTN AMLODIPINE BESYLATE 31341311359 Active Ct Ledesma LPN Active SYNTHROID 0.1 MG TAB 1 tablet by mouth daily LE VOTHYROXINE SODIUM 92194969851 Active Carina Tucker LPN Active GLIPIZIDE 10 MG TAB take 2 tablets twice daily GLIPIZIDE 22376049151 Active Baltazar Childers MD Active SUCRALFATE 1 GM TABS 1 four times a day to coat the stomach 2015 SUCRALFATE 58203977137 No Longer Active Baltazar Childers MD Active PEN NEEDLES 31G X 6 MM MISC use 1 daily INSULIN PEN NEEDLE 51376475668 Active Bella Suarez MEDICAL ASSISTING INSTRUCTOR Active TOUJEO SOLOSTAR 300 UNIT/ML SC SOPN 10 units SC daily INSULIN GLARGINE 38544389461 No Longer Active Martita Godinez RMA Active LANTUS SOLOSTAR 100 UNIT/ML SC SOPN 10 units SC daily INSULIN GLARGINE 25230067254 Active KENDALL Juarez Active NAPROXEN SODIUM 220 MG ORAL TABS 1 three times a day as needed 2 NAPROXEN SODIUM 52560244390 No Longer Active Baltazar Childers MD Active ATORVASTATIN CALCIUM 20 MG ORAL TABS Take 1 tab daily ATORVASTATIN CALCIUM 44888022892 Active Baltazar Childers MD Active FUROSEMIDE 40 MG TABS Take one by mouth daily FUROSEMIDE 51661781452 Active Baltazar Childers MD Active LISINOPRIL 20 MG TABS Take one by mouth daily at bedtime LISINOPRIL 56507855195 No Longer Active Baltazar Childers MD Active ONETOUCH ULTRA BLUE STRP Test twice a day GLUCO SE BLOOD 68696708361 No Longer Active Baltazar Childers MD Active TRUEPLUS LANCETS 33G MISC Test twice a day LANCET S 49115113297 Active KENDALL Juarez Active TRUEDRAW LANCING DEVICE MISC Test twice a day L ANCET DEVICES 42753990051 Active Baltazar Childers MD Active TRUETRACK TEST STRP Test twice a day GLUCOSE BLOO D 80294163061 Active KENDALL Juarez Active TRUEMARVELCK BLOOD GLUCOSE W/DEVICE KIT Test twice a day BLOOD GLUCOSE MONITORING SUPPL 02121426723 Active Baltazar Childers MD Activ e HYDROCODONE-ACETAMINOPHEN 7.5-325 MG TABS Take 1 tab every 6-8 hour s PRN HYDROCODONE-ACETAMINOPHEN 68127976059 Active Baltazar Childers MD Active NORTRIPTYLINE HCL 50 MG CAPS 1 every night for neuropathy 4 NORTRIPTYLINE HCL 20272389515 Active Baltazar Childers MD Acti ve GABAPENTIN 300 MG CAPS 1 three times a day GABAPE NTIN 93907932783 Active Baltazar Childers MD Active GABAPENTIN 300 MG CAPS 1 po qd x 2 days, then 1 po BID x 2 d ays, then 1 po TID GABAPENTIN 54024481784 No Longer Active Baltazar silverman MD Active TRAMADOL HCL 50 MG TABS 1 twice a day as needed for pain TRAMADOL HCL 05634937496 Active Baltazar Childers MD Active NAPROXEN 500 MG TABS 1 tablet by mouth twice daily NAPROXEN 60018889761 No Longer Active Baltazar Childers MD Active PROAIR HFA 108 (90 BASE) MCG/ACT AERS 2 puffs four times a d ay as needed ALBUTEROL SULFATE 84219136513 Active Baltazar Childers MD Active DEPO-TESTOSTERONE 200 MG/ML OIL as directed RUFINO TOSTERONE CYPIONATE 05851993602 No Longer Active Baltazar Childers MD Active LIPITOR 20 MG TABS Take one by mouth daily in evening ATORVASTATIN CALCIUM 65549620656 No Longer Active Baltazar Childers MD Activ e CRESTOR 10 MG TABS 1 by mouth every day R OSUVASTATIN CALCIUM 78178858982 No Longer Active Baltazar Childers MD Activ e PHENTERMINE HCL 37.5 MG TABS Take one by mouth daily 2 PHENTERMINE HCL 70612682616 No Longer Active Baltazar Childers MD Activ e ROBAXIN-750 750 MG TABS Take one by mouth daily ME THOCARBAMOL 39473800704 Active Baltazar Childers MD Active TIZANIDINE HCL 4 MG TABS 1 daily as needed for muscle spasm 2011 TIZANIDINE HCL 56261047025 No Longer Active Dawna Salazar RN Active [id number] 50-325-40 MG TABS 1 four time s a day as needed for heacache [id number] 13188112856 Active Batlazar Childers MD Active SUMATRIPTAN SUCCINATE 100 MG TABS 1 tablet by mouth at onset of migraine as needed SUMATRIPTAN SUCCINATE 91694395244 Active Shonna richey APRN Active LORATADINE 10 MG TABS Take one by mouth daily LORATADINE 83433469497 Active Bethrenetta Carr KENDALL Active OMEPRAZOLE 20 MG CPDR Take one by mouth daily OMEPRAZOLE 72741833833 Active Baltazar Childers MD Active HYDROXYZINE HCL 25 MG TABS Take one by mouth daily HYDROXYZINE HCL 32174894972 Active Baltazar Childers MD Active ALPRAZOLAM 1 MG TABS 1 tablet by mouth daily at bedtime for restles s leg ALPRAZOLAM 91751984831 Active Baltazar Childers MD Active METFORMIN HCL 1000 MG TABS Take one by mouth twice daily METFORMIN HCL 63182834744 Active Baltazar Childers MD Active TIZANIDINE HCL 4 MG TABS 1 daily as needed for muscle spasm 2011 TIZANIDINE HCL 4 MG TABS 808290 TIZANIDINE HCL Inactiv e PHENTERMINE HCL 37.5 MG TABS Take one by mouth daily 2 PHENTERMINE HCL 37.5 MG TABS 654785 PHENTERMINE HCL Inactive CRESTOR 10 MG TABS 1 by mouth every day C RESTOR 10 MG TABS 702214 ROSUVASTATIN CALCIUM Inactive LIPITOR 20 MG TABS Take one by mouth daily in evening LIPITOR 20 MG TABS 200684 ATORVASTATIN CALCIUM Inactive DEPO-TESTOSTERONE 200 MG/ML OIL as directed 8 DEPO-TESTOSTERONE 200 MG/ML OIL 906010 TESTOSTERONE CYPIONATE Inactive NAPROXEN 500 MG TABS 1 tablet by mouth twice daily 201 07/27/22 NAPROXEN 500 MG TABS 854324 NAPROXEN Inactive GABAPENTIN 300 MG CAPS 1 po qd x 2 days, then 1 po BID x 2 d ays, then 1 po TID GABAPENTIN 300 MG CAPS 523325 GABAPENTIN Inact amie ONETOUCH ULTRA BLUE STRP Test twice a day ONETOUCH ULTRA BLUE STRP GLUCOSE BLOOD Inactive NAPROXEN SODIUM 220 MG ORAL TABS 1 three times a day as needed 2 NAPROXEN SODIUM 220 MG ORAL TABS 165649 NAPROXEN SODIUM Inactive TOUJEO SOLOSTAR 300 UNIT/ML SC SOPN 10 units SC daily TOUJEO SOLOSTAR 300 UNIT/ML SC SOPN INSULIN GLARGINE Inac tive SUCRALFATE 1 GM TABS 1 four times a day to coat the stomach 2015 SUCRALFATE 1 GM TABS 540270 SUCRALFATE Inactive Immunizations Vaccine Administration Date Value Standard Floyd cription pneumococcal immunization administered Pneumovax 23 [CVX33] pneumococcal polysaccharide vaccine, 23 valent Seasonal influenza vaccine, injectable, containing preservative, for > 3 years old (Afluria, FluLaval, Fluzone, Fluvirin, Fluarix, Agriflu(>= 18 yo)) Fluzone (>3 yrs.) [[id number]] Influenza, seasonal, inject able Seasonal influenza vaccine, injectable, containing preservative, for > 3 years old (Afluria, FluLaval, Fluzone, Fluvirin, Fluarix, Agriflu(>= 18 yo)) Fluzone (>3 yrs.) [[id number]] Influenza, seasonal, inject able Vital Signs Date [...] C - Chemistry sodium, serum 143 mmol/L 874-730 5667/06/19 potassium, serum 5.9 mmol/L 3.5-5.2 chloride, serum 105 mmol/L 98-107 carbon dioxide, venous blood 30.2 mmol/L 21.0-32 .0 blood glucose 189 mg/dL 65-110 calcium, serum 9.7 mg/dL 8.5-10.1 urea nitrogen, blood 37 mg/dL 7-18 creatinine, serum 2.11 mg/dL 0.55-1.30 hemoglobin A1C, blood, as % of total hemoglobin 8.2 % 4.3-6.0 Lab Report: CBC - Hematology hemoglobin, blood 12.2 g/dL 12.0-16.0 erythrocyte (RBC) count 3.75 10^6/MM^3 10*6/mm3 4.04-5.4 8 leukocyte count, blood 8.0 10^3/MM^3 10*3/mm3 4.6-10.2 mean corpuscular hemoglobin, RBC 32.5 pg 27. 0-31.2 mean corpuscular hemoglobin concentration, RBC 33.4 G/DL % 31.8-35.4 red blood cell distribution width 16.2 % 11 .6-14.8 platelet count 345 10^3/MM^3 10*3/mm3 096-495 4000/08/08 mean corpuscular volume, RBC 97 fL 80-97 hematocrit, blood 36.5 % 36.0-46.0 Lab Report: Comp. Metabolic Panel, Lipid Panel - Chemistry sodium, serum 143 mmol/L 921-873 4358/12/19 carbon dioxide, venous blood 32.5 mmol/L 21.0-32 .0 potassium, serum 4.9 mmol/L 3.5-5.2 chloride, serum 101 mmol/L 98-107 blood glucose 129 mg/dL 65-110 urea nitrogen, blood 18 mg/dL 7-18 creatinine, serum 1.79 mg/dL 0.55-1.30 alanine aminotransferase (SGPT), serum 34 U/L 12-78 aspartate aminotransferase (SGOT), serum 26 U/L 15-37 calcium, serum 8.9 mg/dL 8.5-10.1 bilirubin, serum, total 0.30 mg/dL 0.00-1.00 cholesterol, serum 214 mg/dL 825-704 3537/12/19 triglyceride, serum, fasting 351 mg/dL 30-200 HDL [...] 4.3-6.0 Lab Report: Renal Panel - Chemistry blood glucose 193 mg/dL 65-110 urea nitrogen, blood 30 mg/dL 7-18 calcium, serum 9.8 mg/dL 8.5-10.1 creatinine, serum 1.98 mg/dL 0.55-1.30 carbon dioxide, venous blood 34.1 mmol/L 21.0-32 .0 chloride, serum 101 mmol/L 98-107 potassium, serum 4.9 mmol/L 3.5-5.2 sodium, serum 141 mmol/L 136-145 Encounters Code Encounter Date Provider Facility CPT-30507 Level 4 Est. Patient 14:22:31 CDT Baltazar Childers MD [facility] CPT-38923 Level 4 Est. Patient 15:44:38 CDT Shonna Parker [facility] CPT-18264 Level 4 Est. Patient 11:34:17 CDT Baltazar Childers MD [facility] CPT-36487 Level 3 Est. Patient 16:40:40 CDT Baltazar Childers MD [facility] CPT-78870 Level 4 Est. Patient 10:41:24 CDT Baltazar Childers MD [facility] CPT-49707 Level 4 Est. Patient 16:01:48 CDT Baltazar Childers MD [facility] CPT-52265 Level 4 Est. Patient 16:54:07 RATCHET SETTER Baltazar Childers MD [facility] CPT-04550 Level 4 Est. Patient 15:42:12 CDT Baltazar Childers MD [facility] CPT-63468 Level 4 Est. Patient 11:29:55 CDT Baltazar Childers MD [facility] CPT-02857 Level 4 Est. Patient 14:15:19 CDT Baltazar Childers MD [facility] CPT-97567 Level 4 Est. Patient 12:20:13 CDT Baltazar Childers MD [facility] CPT-97799 Level 4 Est. Patient 14:52:45 RATCHET SETTER Baltazar Childers MD [facility] CPT-54353 Level 4 Est. Patient 14:18:34 RATCHET SETTER Baltazar Childers MD [facility] CPT-81529 Level 4 Est. Patient 15:18:29 CDT Baltazar Childers MD [facility] CPT-34432 Level 3 Est. Patient 12:45:34 CDT Baltazar Childers MD [facility] CPT-10240 Level 3 Est. Patient 10:10:11 CDT Baltazar Childers MD [facility] CPT-70537 Level 3 Est. Patient 14:07:50 CDT Baltazar Childers MD [facility] CPT-48229 Level 4 Est. Patient 12:26:10 RATCHET SETTER Baltazar Childers MD [facility] CPT-41364 Level 4 Est. Patient 14:45:38 CDT Baltazar Childers MD [facility] CPT-09847 Level 4 New Patient 12:30:48 CDT Baltazar hinton MD [facility] Procedures Code Procedure Name Date Entry Date Standard Desc ription CPT-35086 Lipid - LAB USE ONLY 17:39:15 RATCHET SETTER 9 CPT-91940 HGBA1C - LAB USE ONLY 17:39:15 RATCHET SETTER CPT-62317 CMP - LAB USE ONLY 17:39:14 RATCHET SETTER CPT-71782 Venipuncture Draw Fee 17:39:14 RATCHET SETTER CPT-87451 First Vx - Ix admin via ID I M or jet injects without counseling by physician 16:55:17 RATCHET SETTER CPT-14450 Fluzone Quadrivalent Intramuscular Suspe nsion 0.5 ML 16:55:17 RATCHET SETTER CPT-43000 Renal Panel - LAB USE ONLY 17:39:20 CDT 201 10/31/07 CPT-99681 CBC - LAB USE ONLY 17:39:20 CDT CPT-16444 Venipuncture Draw Fee 17:39:20 CDT CPT-99646 Venipuncture Draw Fee 14:33:30 CDT CPT-56323 Renal Panel - LAB USE ONLY 14:33:30 CDT 201 10/31/07 CPT-53985 CBC - LAB USE ONLY 14:33:29 CDT CPT-65315 Venipuncture Draw Fee 14:50:21 RATCHET SETTER CPT-87118 Immunization Single Admin 17:35:35 CDT 2014 CPT-35897 Fluzone Quadrivalent preservative free ( >=3yrs.) 17:35:35 CDT CPT-56630 Venipuncture Draw Fee 12:10:27 RATCHET SETTER CPT-32292 Fluzone Quadrivalent Intramuscular Suspe nsion 0.5 ML 10:49:13 CDT CPT-31585 First Vx Component - Ix admi n via ID IM or jet inj without physician counseling 15:17:19 RATCHET SETTER CPT-22336 Pneumovax 23 15:17:19 RATCHET SETTER CPT-05542 Pneumovax 14:52:45 RATCHET SETTER CPT-80707 Venipuncture Draw Fee 14:06:30 RATCHET SETTER CPT-000 Give Appropriate Flu Vaccine 14:18:34 RATCHET SETTER 2 CPT-04166 Administration single or combination vac cine inc oral 14:46:00 RATCHET SETTER CPT-57663 Influenza split virus > age 3 14:46:00 RATCHET SETTER CPT-OV Office Visit 19:13:16 CDT CPT-91721 Zostavax 18:41:56 CDT CPT-76678 Administration single or combination vac cine inc oral 12:56:39 CDT CPT-14755 Zoster Vaccine (Zostavax) 12:56:39 CDT 2012 CPT-13211 Venipuncture Draw Fee 10:58:57 CDT CPT-26859 Sono pelvis non OB uterus ovaries cervix 17:45:04 CDT CPT-24000 Sono retroperitoneal complete kidneys an d bladder 17:14:36 CDT CPT-OV Office Visit 14:59:38 RATCHET SETTER CPT-J1070 Depo Testosterone 100 mg 14:50:13 CDT 03/05 CPT-04642 Abx/Therapy Injection 14:50:13 CDT CPT-52347 Administration single or combination vac cine inc oral 14:34:43 CDT CPT-56274 Influenza split virus > age 3 14:34:43 CDT CPT-J1070 Depo Testosterone 100 mg 17:37:13 CDT 01/11 CPT-39100 Abx/Therapy Injection 17:37:13 CDT CPT-49997 Venipuncture Draw Fee 16:30:13 CDT CPT-82711 Venipuncture Draw Fee 16:29:43 CDT CPT-J1070 Depo Testosterone 100 mg 14:45:38 CDT 01/11
--- OUTSIDE RECORDS SUMMARY | 2019-10-27 13:10 | XMS REPORT | Clinical Summary ---
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 Benign neoplasm of colon PERIPHERAL NEUROPATHY [...] ronary atherosclerosis of unspecified type of vessel, kiana or graft OTH NONSPC ABN FINDNG RAD&OTH [...] MISC use 1 daily INSULIN PEN NEEDLE 73190501667 Active Martita Herbert RMA Active TOUJEO SOLOSTAR 300 UNIT/ML SC SOPN 10 units SC daily INSULIN GLARGINE 71695533483 No Longer Active Martita Herbert RMA Active LANTUS SOLOSTAR 100 UNIT/ML SC SOPN 10 units SC daily INSULIN GLARGINE 25435124696 Active Martita Herbert RMA Active NAPROXEN SODIUM 220 MG ORAL TABS 1 three times a day as needed 2 NAPROXEN SODIUM 72338122305 No Longer Active Baltazar Childers MD Active ATORVASTATIN CALCIUM 20 MG ORAL TABS Take 1 tab daily ATORVASTATIN CALCIUM 13627659515 Active KENDALL Juarez Active FUROSEMIDE 40 MG TABS Take one by mouth daily FUROSEMIDE 00753620783 Active Baltazar Childers MD Active LISINOPRIL 20 MG TABS Take one by mouth daily at bedtime LISINOPRIL 36757933083 Active Baltazar Childers MD Active ONETOUCH ULTRA BLUE STRP Test twice a day GLUCO SE BLOOD 21006201939 No Longer Active Baltazar Childers MD Active TRUEPLUS LANCETS 33G MISC Test twice a day LANCET S 69606596903 Active KENDALL Juarez Active TRUEDRAW LANCING DEVICE MISC Test twice a day L ANCET DEVICES 78567533709 Active Baltazar Childers MD Active TRUETRACK TEST STRP Test twice a day GLUCOSE BLOO D 44621294315 Active KENDALL Juarez Active TRUETRACK BLOOD GLUCOSE W/DEVICE KIT Test twice a day BLOOD GLUCOSE MONITORING SUPPL 60562336481 Active Baltazar Childers MD Activ e HYDROCODONE-ACETAMINOPHEN 7.5-325 MG TABS Take 1 tab every 6-8 hour s PRN HYDROCODONE-ACETAMINOPHEN 19796637653 Active Baltazar Childers MD Active NORTRIPTYLINE HCL 50 MG CAPS 1 every night for neuropathy 4 NORTRIPTYLINE HCL 12618455637 Active Baltazar Childers MD Acti ve GABAPENTIN 300 MG CAPS 1 three times a day GABAPE NTIN 45300003866 Active Baltazar Childers MD Active GABAPENTIN 300 MG CAPS 1 po qd x 2 days, then 1 po BID x 2 d ays, then 1 po TID GABAPENTIN 21086799406 No Longer Active Baltazar silverman MD Active TRAMADOL HCL 50 MG TABS 1 twice a day as needed for pain TRAMADOL HCL 69422273145 Active Baltazar Childers MD Active NAPROXEN 500 MG TABS 1 tablet by mouth twice daily NAPROXEN 38499204775 No Longer Active Baltazar Childers MD Active PROAIR HFA 108 (90 BASE) MCG/ACT AERS 2 puffs four times a d ay as needed ALBUTEROL SULFATE 58807326197 Active KENDALL Juarez Active DEPO-TESTOSTERONE 200 MG/ML OIL as directed RUFINO TOSTERONE CYPIONATE 66292419049 No Longer Active Baltazar Childers MD Active LIPITOR 20 MG TABS Take one by mouth daily in evening ATORVASTATIN CALCIUM 03313915063 No Longer Active Baltazar Childers MD Activ e CRESTOR 10 MG TABS 1 by mouth every day R OSUVASTATIN CALCIUM 44072852488 No Longer Active Baltazar Childers MD Activ e PHENTERMINE HCL 37.5 MG TABS Take one by mouth daily 2 PHENTERMINE HCL 66690777418 No Longer Active Baltazar Childers MD Activ e ROBAXIN-750 750 MG TABS Take one by mouth daily ME THOCARBAMOL 41798058252 Active Baltazar Childers MD Active TIZANIDINE HCL 4 MG TABS 1 daily as needed for muscle spasm 2011 TIZANIDINE HCL 55443765847 No Longer Active Dawna Salazar RN Active OOJBDDAPVN-MCQK-LWJUXUBP 50-325-40 MG TABS 1 four time s a day as needed for heacache ONAREVVNOR-RXDW-MWMNSAST 52191857029 Active Baltazar Childers MD Active SUMATRIPTAN SUCCINATE 100 MG TABS 1 tablet by mouth at onset of migraine as needed SUMATRIPTAN SUCCINATE 51767172275 Active KENDALL Juarez Active LORATADINE 10 MG TABS Take one by mouth daily LORATADINE 26250205955 Active Baltazar Childers MD Active OMEPRAZOLE 20 MG CPDR Take one by mouth daily OMEPRAZOLE 04157219934 Active Argentina Lyons Active HYDROXYZINE HCL 25 MG TABS Take one by mouth daily HYDROXYZINE HCL 09446271924 Active Baltazar Childers MD Active GLIPIZIDE 10 MG TABS 1 tablet by mouth twice daily GLIPIZIDE 51016607706 Active Baltazar Childers MD Active ALPRAZOLAM 1 MG TABS 1 tablet by mouth daily at bedtime for restles s leg ALPRAZOLAM 45879668055 Active Baltazar Childers MD Active METFORMIN HCL 1000 MG TABS Take one by mouth twice daily METFORMIN HCL 21450332835 Active Baltazar Childers MD Active TIZANIDINE HCL 4 MG TABS 1 daily as needed for muscle spasm 2011 TIZANIDINE HCL 4 MG TABS 057372 TIZANIDINE HCL Inactiv e PHENTERMINE HCL 37.5 MG TABS Take one by mouth daily 2 PHENTERMINE HCL 37.5 MG TABS 922111 PHENTERMINE HCL Inactive CRESTOR 10 MG TABS 1 by mouth every day C RESTOR 10 MG TABS 146080 ROSUVASTATIN CALCIUM Inactive LIPITOR 20 MG TABS Take one by mouth daily in evening LIPITOR 20 MG TABS 528201 ATORVASTATIN CALCIUM Inactive DEPO-TESTOSTERONE 200 MG/ML OIL as directed 8 DEPO-TESTOSTERONE 200 MG/ML OIL 159972 TESTOSTERONE CYPIONATE Inactive NAPROXEN 500 MG TABS 1 tablet by mouth twice daily 201 07/27/22 NAPROXEN 500 MG TABS 850906 NAPROXEN Inactive GABAPENTIN 300 MG CAPS 1 po qd x 2 days, then 1 po BID x 2 d ays, then 1 po TID GABAPENTIN 300 MG CAPS 615278 GABAPENTIN Inact amie ONETOUCH ULTRA BLUE STRP Test twice a day ONETOUCH ULTRA BLUE STRP GLUCOSE BLOOD Inactive NAPROXEN SODIUM 220 MG ORAL TABS 1 three times a day as needed 2 NAPROXEN SODIUM 220 MG ORAL TABS 377679 NAPROXEN SODIUM Inactive TOUJEO SOLOSTAR 300 UNIT/ML [...] Fluarix, Agriflu(>= 18 yo)) Fluzone (>3 yrs.) [[id number]] Influenza, seasonal, inject able Seasonal influenza vaccine, injectable, containing preservative, for > 3 years old (Afluria, FluLaval, Fluzone, Fluvirin, Fluarix, Agriflu(>= 18 yo)) Fluzone (>3 yrs.) [[id number]] Influenza, seasonal, inject able Vital Signs Date [...] C - Chemistry sodium, serum 139 mmol/L 389-716 9354/07/07 potassium, serum 4.5 mmol/L 3.5-5.2 chloride, serum [...] 7.9 % 4.3-6.0 sodium, serum 139 mmol/L 021-359 9704/02/04 potassium, serum 5.4 mmol/L 3.5-5.2 chloride, serum [...] Panel - Chemistry sodium, serum 138 mmol/L 580-911 3831/11/23 carbon dioxide, venous blood 32.4 mmol/L 21.0-32 .0 potassium, serum 5.7 mmol/L 3.5-5.2 chloride, serum 98 mmol/L 98-107 blood glucose 136 mg/dL 65-110 urea nitrogen, blood 18 mg/dL 7-18 creatinine, serum 1.71 mg/dL 0.55-1.30 alanine aminotransferase (SGPT), serum 71 U/L 12-78 aspartate aminotransferase (SGOT), serum 34 U/L 15-37 calcium, serum 9.4 mg/dL 8.5-10.1 bilirubin, serum, total 0.40 mg/dL 0.00-1.00 cholesterol, serum 405 mg/dL 258-263 6963/11/23 triglyceride, serum, fasting 709 mg/dL 30-200 HDL [...] mg/dL Encounters Code Encounter Date Provider Facility CPT-57306 Level 3 Est. Patient 16:40:40 CDT Baltazar Childers MD [facility] CPT-67334 Level 4 Est. Patient 10:41:24 CDT Baltazar Childers MD [facility] CPT-78986 Level 4 Est. Patient 16:01:48 CDT Baltazar Childers MD [facility] CPT-84076 Level 4 Est. Patient 16:54:07 SAW STRAIGHTENER Baltazar Childers MD [facility] CPT-06893 Level 4 Est. Patient 15:42:12 CDT Baltazar Childers MD [facility] CPT-69046 Level 4 Est. Patient 11:29:55 CDT Baltazar Childers MD [facility] CPT-71140 Level 4 Est. Patient 14:15:19 CDT Baltazar Childers MD [facility] CPT-59021 Level 4 Est. Patient 12:20:13 CDT Baltazar Childers MD [facility] CPT-24574 Level 4 Est. Patient 14:52:45 SAW STRAIGHTENER Baltazar Childers MD [facility] CPT-98268 Level 4 Est. Patient 14:18:34 SAW STRAIGHTENER Baltazar Childers MD [facility] CPT-86321 Level 4 Est. Patient 15:18:29 CDT Baltazar Childers MD [facility] CPT-99425 Level 3 Est. Patient 12:45:34 CDT Baltazar Childers MD [facility] CPT-98554 Level 3 Est. Patient 10:10:11 CDT Baltazar Childers MD [facility] CPT-79561 Level 3 Est. Patient 14:07:50 CDT Baltazar Chidlers MD [facility] CPT-14586 Level 4 Est. Patient 12:26:10 SAW STRAIGHTENER Baltazar Childers MD [facility] CPT-53459 Level 4 Est. Patient 14:45:38 CDT Baltazar Childers MD [facility] CPT-94433 Level 4 New Patient 12:30:48 CDT Baltazar hinton MD [facility] Procedures Code Procedure Name Date Entry Date Standard Desc ription CPT-77720 Venipuncture Draw Fee 14:50:21 SAW STRAIGHTENER CPT-22649 Immunization Single Admin 17:35:35 CDT 2014 CPT-08086 Fluzone Quadrivalent preservative free ( >=3yrs.) 17:35:35 CDT CPT-40195 Venipuncture Draw Fee 12:10:27 SAW STRAIGHTENER CPT-16941 Fluzone Quadrivalent Intramuscular Suspe nsion 0.5 ML 10:49:13 CDT CPT-95906 First Vx Component - Ix admi n via ID IM or jet inj without physician counseling 15:17:19 SAW STRAIGHTENER CPT-86740 Pneumovax 23 15:17:19 SAW STRAIGHTENER CPT-95089 Pneumovax 14:52:45 SAW STRAIGHTENER CPT-27096 Venipuncture Draw Fee 14:06:30 SAW STRAIGHTENER CPT-000 Give Appropriate Flu Vaccine 14:18:34 SAW STRAIGHTENER 2 CPT-69400 Administration single or combination vac cine inc oral 14:46:00 SAW STRAIGHTENER CPT-56399 Influenza split virus > age 3 14:46:00 SAW STRAIGHTENER CPT-OV Office Visit 19:13:16 CDT CPT-83759 Zostavax 18:41:56 CDT CPT-20353 Administration single or combination vac cine inc oral 12:56:39 CDT CPT-97078 Zoster Vaccine (Zostavax) 12:56:39 CDT 2012 CPT-71148 Venipuncture Draw Fee 10:58:57 CDT CPT-07725 Sono pelvis non OB uterus ovaries cervix 17:45:04 CDT CPT-95088 Sono retroperitoneal complete kidneys an d bladder 17:14:36 CDT CPT-OV Office Visit 14:59:38 SAW STRAIGHTENER CPT-J1070 Depo Testosterone 100 mg 14:50:13 CDT 03/05 CPT-60412 Abx/Therapy Injection 14:50:13 CDT CPT-79415 Administration single or combination vac cine inc oral 14:34:43 CDT CPT-43167 Influenza split virus > age 3 14:34:43 CDT CPT-J1070 Depo Testosterone 100 mg 17:37:13 CDT 01/11 CPT-10317 Abx/Therapy Injection 17:37:13 CDT CPT-84139 Venipuncture Draw Fee 16:30:13 CDT CPT-55404 Venipuncture Draw Fee 16:29:43 CDT CPT-J1070 Depo Testosterone 100 mg 14:45:38 CDT 01/11
--- OUTSIDE RECORDS SUMMARY | 2019-10-27 13:10 | XMS REPORT | Clinical Summary ---
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 Benign neoplasm of colon PERIPHERAL NEUROPATHY [...] ronary atherosclerosis of unspecified type of vessel, chenega or graft OTH NONSPC ABN FINDNG RAD&OTH [...] 1 tab daily for HTN AMLODIPINE BESYLATE 51578121213 Active Ct Ledesma MILLER ROD MILL Active SYNTHROID 0.1 MG TAB 1 tablet by mouth daily LE VOTHYROXINE SODIUM 73477440228 Active Shonna Parker APRN Active GLIPIZIDE 10 MG TAB take 2 tablets twice daily GLIPIZIDE 83269365591 Active Baltazar Childers MD Active SUCRALFATE 1 GM TABS 1 four times a day to coat the stomach 2015 SUCRALFATE 30479753111 No Longer Active Baltazar Childers MD Active PEN NEEDLES 31G X 6 MM MISC use 1 daily INSULIN PEN NEEDLE 00397847841 Active Gato Rae MD Active TOUJEO SOLOSTAR 300 UNIT/ML SC SOPN 10 units SC daily INSULIN GLARGINE 19847068397 No Longer Active Martita Herbert ARGUETA Active LANTUS SOLOSTAR 100 UNIT/ML SC SOPN 10 units SC daily INSULIN GLARGINE 58859560084 Active KENDALL Juarez Active NAPROXEN SODIUM 220 MG ORAL TABS 1 three times a day as needed 2 NAPROXEN SODIUM 98835998664 No Longer Active Baltazar Childers MD Active ATORVASTATIN CALCIUM 20 MG ORAL TABS Take 1 tab daily ATORVASTATIN CALCIUM 27049080567 Active Baltazar Childers MD Active FUROSEMIDE 40 MG TABS Take one by mouth daily FUROSEMIDE 55089856066 Active Baltazar Childers MD Active LISINOPRIL 20 MG TABS Take one by mouth daily at bedtime LISINOPRIL 21354741169 No Longer Active Baltazar Childers MD Active ONETOUCH ULTRA BLUE STRP Test twice a day GLUCO SE BLOOD 57807331991 No Longer Active Baltazar Childers MD Active TRUEPLUS LANCETS 33G MISC Test twice a day LANCET S 16341243007 Active KENDALL Juarez Active TRUEDRAW LANCING DEVICE MISC Test twice a day L ANCET DEVICES 20216209703 Active Baltazar Childers MD Active TRUETRACK TEST STRP Test twice a day GLUCOSE BLOO D 87334752070 Active KENDALL Juarez Active TRUETRACK BLOOD GLUCOSE W/DEVICE KIT Test twice a day BLOOD GLUCOSE MONITORING SUPPL 55063989702 Active Baltazar Childers MD Activ e HYDROCODONE-ACETAMINOPHEN 7.5-325 MG TABS Take 1 tab every 6-8 hour s PRN HYDROCODONE-ACETAMINOPHEN 20191913841 Active Baltazar Childers MD Active NORTRIPTYLINE HCL 50 MG CAPS 1 every night for neuropathy 4 NORTRIPTYLINE HCL 39142415581 Active Baltazar Childers MD Acti ve GABAPENTIN 300 MG CAPS 1 three times a day GABAPE NTIN 46111656560 Active Baltazar Childers MD Active GABAPENTIN 300 MG CAPS 1 po qd x 2 days, then 1 po BID x 2 d ays, then 1 po TID GABAPENTIN 33560408975 No Longer Active Baltazar silverman MD Active TRAMADOL HCL 50 MG TABS 1 twice a day as needed for pain TRAMADOL HCL 17595315598 Active Baltazar Childers MD Active NAPROXEN 500 MG TABS 1 tablet by mouth twice daily NAPROXEN 38668582139 No Longer Active Baltazar Childers MD Active PROAIR HFA 108 (90 BASE) MCG/ACT AERS 2 puffs four times a d ay as needed ALBUTEROL SULFATE 72355924648 Active Baltazar Childers MD Active DEPO-TESTOSTERONE 200 MG/ML OIL as directed RUFINO TOSTERONE CYPIONATE 88072646519 No Longer Active Baltazar Childers MD Active LIPITOR 20 MG TABS Take one by mouth daily in evening ATORVASTATIN CALCIUM 87074759427 No Longer Active Baltazar Childers MD Activ e CRESTOR 10 MG TABS 1 by mouth every day R OSUVASTATIN CALCIUM 20242971729 No Longer Active Baltazar Childers MD Activ e PHENTERMINE HCL 37.5 MG TABS Take one by mouth daily 2 PHENTERMINE HCL 98658137298 No Longer Active Baltazar Childers MD Activ e ROBAXIN-750 750 MG TABS Take one by mouth daily ME THOCARBAMOL 11287791464 Active Baltazar Childers MD Active TIZANIDINE HCL 4 MG TABS 1 daily as needed for muscle spasm 2011 TIZANIDINE HCL 35637883573 No Longer Active Dawna Salazar RN Active [id number] 50-325-40 MG TABS 1 four time s a day as needed for heacache [id number]-[id number] 62280083683 Active Baltazar Childers MD Active SUMATRIPTAN SUCCINATE 100 MG TABS 1 tablet by mouth at onset of migraine as needed SUMATRIPTAN SUCCINATE 53806261095 Active Shonna richey APRN Active LORATADINE 10 MG TABS Take one by mouth daily LORATADINE 10266939020 Active Bethrenetta Carr KENDALL Active OMEPRAZOLE 20 MG CPDR Take one by mouth daily OMEPRAZOLE 62580515679 Active Baltazar Childers MD Active HYDROXYZINE HCL 25 MG TABS Take one by mouth daily HYDROXYZINE HCL 95853012213 Active Baltazar Childers MD Active ALPRAZOLAM 1 MG TABS 1 tablet by mouth daily at bedtime for restles s leg ALPRAZOLAM 65519530396 Active Baltazar Childers MD Active METFORMIN HCL 1000 MG TABS Take one by mouth twice daily METFORMIN HCL 93284583635 Active Baltazar Childers MD Active TIZANIDINE HCL 4 MG TABS 1 daily as needed for muscle spasm 2011 TIZANIDINE HCL 4 MG TABS 718165 TIZANIDINE HCL Inactiv e PHENTERMINE HCL 37.5 MG TABS Take one by mouth daily 2 PHENTERMINE HCL 37.5 MG TABS 608305 PHENTERMINE HCL Inactive CRESTOR 10 MG TABS 1 by mouth every day C RESTOR 10 MG TABS 899364 ROSUVASTATIN CALCIUM Inactive LIPITOR 20 MG TABS Take one by mouth daily in evening LIPITOR 20 MG TABS 281217 ATORVASTATIN CALCIUM Inactive DEPO-TESTOSTERONE 200 MG/ML OIL as directed 8 DEPO-TESTOSTERONE 200 MG/ML OIL 867234 TESTOSTERONE CYPIONATE Inactive NAPROXEN 500 MG TABS 1 tablet by mouth twice daily 201 07/27/22 NAPROXEN 500 MG TABS 999689 NAPROXEN Inactive GABAPENTIN 300 MG CAPS 1 po qd x 2 days, then 1 po BID x 2 d ays, then 1 po TID GABAPENTIN 300 MG CAPS 217592 GABAPENTIN Inact amie ONETOUCH ULTRA BLUE STRP Test twice a day ONETOUCH ULTRA BLUE STRP GLUCOSE BLOOD Inactive NAPROXEN SODIUM 220 MG ORAL TABS 1 three times a day as needed 2 NAPROXEN SODIUM 220 MG ORAL TABS 945995 NAPROXEN SODIUM Inactive TOUJEO SOLOSTAR 300 UNIT/ML SC SOPN 10 units SC daily TOUJEO SOLOSTAR 300 UNIT/ML SC SOPN INSULIN GLARGINE Inac tive SUCRALFATE 1 GM TABS 1 four times a day to coat the stomach 2015 SUCRALFATE 1 GM TABS 603597 SUCRALFATE Inactive Immunizations Vaccine Administration Date Value Standard Floyd cription pneumococcal immunization administered Pneumovax 23 [CVX33] pneumococcal polysaccharide vaccine, 23 valent Seasonal influenza vaccine, injectable, containing preservative, for > 3 years old (Afluria, FluLaval, Fluzone, Fluvirin, Fluarix, Agriflu(>= 18 yo)) Fluzone (>3 yrs.) [[id number]] Influenza, seasonal, inject able Seasonal influenza vaccine, injectable, containing preservative, for > 3 years old (Afluria, FluLaval, Fluzone, Fluvirin, Fluarix, Agriflu(>= 18 yo)) Fluzone (>3 yrs.) [[id number]] Influenza, seasonal, inject able Vital Signs Date [...] C - Chemistry sodium, serum 143 mmol/L 103-895 3090/06/19 potassium, serum 5.9 mmol/L 3.5-5.2 chloride, serum 105 mmol/L 98-107 carbon dioxide, venous blood 30.2 mmol/L 21.0-32 .0 blood glucose 189 mg/dL 65-110 calcium, serum 9.7 mg/dL 8.5-10.1 urea nitrogen, blood 37 mg/dL 7-18 creatinine, serum 2.11 mg/dL 0.55-1.30 hemoglobin A1C, blood, as % of total hemoglobin 8.2 % 4.3-6.0 Lab Report: Comp. Metabolic Panel, Lipid Panel - Chemistry sodium, serum 143 mmol/L 992-719 2069/12/19 carbon dioxide, venous blood 32.5 mmol/L 21.0-32 .0 potassium, serum 4.9 mmol/L 3.5-5.2 chloride, serum 101 mmol/L 98-107 blood glucose 129 mg/dL 65-110 urea nitrogen, blood 18 mg/dL 7-18 creatinine, serum 1.79 mg/dL 0.55-1.30 alanine aminotransferase (SGPT), serum 34 U/L 12-78 aspartate aminotransferase (SGOT), serum 26 U/L 15-37 calcium, serum 8.9 mg/dL 8.5-10.1 bilirubin, serum, total 0.30 mg/dL 0.00-1.00 cholesterol, serum 214 mg/dL 701-432 5269/12/19 triglyceride, serum, fasting 351 mg/dL 30-200 HDL [...] 4.3-6.0 Encounters Code Encounter Date Provider Facility CPT-89086 Level 4 Est. Patient 14:22:31 CDT Baltazar Childers MD [facility] CPT-89168 Level 4 Est. Patient 15:44:38 CDT Shonna Parker APRN [facility] CPT-08273 Level 4 Est. Patient 11:34:17 CDT Baltazar Childers MD [facility] CPT-09414 Level 3 Est. Patient 16:40:40 CDT Baltazar Childers MD [facility] CPT-34082 Level 4 Est. Patient 10:41:24 CDT Baltazar Childers MD [facility] CPT-52706 Level 4 Est. Patient 16:01:48 CDT Baltazar Childers MD [facility] CPT-98121 Level 4 Est. Patient 16:54:07 INTERVENTIONAL PHYSIATRIST Baltazar Childers MD [facility] CPT-68350 Level 4 Est. Patient 15:42:12 CDT Baltazar Childers MD [facility] CPT-65684 Level 4 Est. Patient 11:29:55 CDT Baltazar Childers MD [facility] CPT-90561 Level 4 Est. Patient 14:15:19 CDT Baltazar Childers MD [facility] CPT-16284 Level 4 Est. Patient 12:20:13 CDT Baltazar Childers MD [facility] CPT-43904 Level 4 Est. Patient 14:52:45 INTERVENTIONAL PHYSIATRIST Baltazar Childers MD [facility] CPT-71940 Level 4 Est. Patient 14:18:34 INTERVENTIONAL PHYSIATRIST Baltazar Childers MD [facility] CPT-72649 Level 4 Est. Patient 15:18:29 CDT Baltazar Childers MD [facility] CPT-94174 Level 3 Est. Patient 12:45:34 CDT Baltazar Childers MD [facility] CPT-64796 Level 3 Est. Patient 10:10:11 CDT Baltazar Childers MD [facility] CPT-43972 Level 3 Est. Patient 14:07:50 CDT Baltazar Childers MD [facility] CPT-74152 Level 4 Est. Patient 12:26:10 INTERVENTIONAL PHYSIATRIST Baltazar Childers MD [facility] CPT-29690 Level 4 Est. Patient 14:45:38 CDT Baltazar Childers MD [facility] CPT-30829 Level 4 New Patient 12:30:48 CDT Baltazar hinton MD [facility] Procedures Code Procedure Name Date Entry Date Standard Desc ription CPT-85949 Venipuncture Draw Fee 12:04:12 CDT CPT-72871 Lipid - LAB USE ONLY 17:39:15 INTERVENTIONAL PHYSIATRIST 9 CPT-33383 HGBA1C - LAB USE ONLY 17:39:15 INTERVENTIONAL PHYSIATRIST CPT-59260 CMP - LAB USE ONLY 17:39:14 INTERVENTIONAL PHYSIATRIST CPT-93974 Venipuncture Draw Fee 17:39:14 INTERVENTIONAL PHYSIATRIST CPT-80109 First Vx - Ix admin via ID I M or jet injects without counseling by physician 16:55:17 INTERVENTIONAL PHYSIATRIST CPT-11197 Fluzone Quadrivalent Intramuscular Suspe nsion 0.5 ML 16:55:17 INTERVENTIONAL PHYSIATRIST CPT-33490 Renal Panel - LAB USE ONLY 17:39:20 CDT 201 10/31/07 CPT-71275 CBC - LAB USE ONLY 17:39:20 CDT CPT-25794 Venipuncture Draw Fee 17:39:20 CDT CPT-64933 Venipuncture Draw Fee 14:33:30 CDT CPT-55756 Renal Panel - LAB USE ONLY 14:33:30 CDT 201 10/31/07 CPT-92708 CBC - LAB USE ONLY 14:33:29 CDT CPT-43635 Venipuncture Draw Fee 14:50:21 INTERVENTIONAL PHYSIATRIST CPT-08508 Immunization Single Admin 17:35:35 CDT 2014 CPT-81426 Fluzone Quadrivalent preservative free ( >=3yrs.) 17:35:35 CDT CPT-90933 Venipuncture Draw Fee 12:10:27 INTERVENTIONAL PHYSIATRIST CPT-78871 Fluzone Quadrivalent Intramuscular Suspe nsion 0.5 ML 10:49:13 CDT CPT-46163 First Vx Component - Ix admi n via ID IM or jet inj without physician counseling 15:17:19 INTERVENTIONAL PHYSIATRIST CPT-07747 Pneumovax 15:17:19 INTERVENTIONAL PHYSIATRIST CPT-79659 Pneumovax 14:52:45 INTERVENTIONAL PHYSIATRIST CPT-62370 Venipuncture Draw Fee 14:06:30 INTERVENTIONAL PHYSIATRIST CPT-000 Give Appropriate Flu Vaccine 14:18:34 INTERVENTIONAL PHYSIATRIST 2 CPT-61331 Administration single or combination vac cine inc oral 14:46:00 INTERVENTIONAL PHYSIATRIST CPT-61288 Influenza split virus > age 3 14:46:00 INTERVENTIONAL PHYSIATRIST CPT-OV Office Visit 19:13:16 CDT CPT-17775 Zostavax 18:41:56 CDT CPT-23567 Administration single or combination vac cine inc oral 12:56:39 CDT CPT-61173 Zoster Vaccine (Zostavax) 12:56:39 CDT 2012 CPT-42509 Venipuncture Draw Fee 10:58:57 CDT CPT-58324 Sono pelvis non OB uterus ovaries cervix 17:45:04 CDT CPT-37683 Sono retroperitoneal complete kidneys an d bladder 17:14:36 CDT CPT-OV Office Visit 14:59:38 INTERVENTIONAL PHYSIATRIST CPT-J1070 Depo Testosterone 100 mg 14:50:13 CDT 03/05 CPT-68491 Abx/Therapy Injection 14:50:13 CDT CPT-29057 Administration single or combination vac cine inc oral 14:34:43 CDT CPT-43812 Influenza split virus > age 3 14:34:43 CDT CPT-J1070 Depo Testosterone 100 mg 17:37:13 CDT 01/11 CPT-56184 Abx/Therapy Injection 17:37:13 CDT CPT-33569 Venipuncture Draw Fee 16:30:13 CDT CPT-20128 Venipuncture Draw Fee 16:29:43 CDT CPT-J1070 Depo Testosterone 100 mg 14:45:38 CDT 01/11
--- OUTSIDE RECORDS SUMMARY | 2019-10-27 13:11 | XMS REPORT | Clinical Summary ---
Author Author Abhishek, Elba Lance [facility] Address Unknown Phone Unavailable Allergies, Adverse Reactions, 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 Thomas DIRECTOR DIGITAL Benign neoplasm of colon PERIPHERAL NEUROPATHY 356.9 Active Baltazar Nickerson MD Unspecified hereditary and idiopathic peripheral neuropathy PERSONAL HISTORY OF COLONIC POLYPS V12.72 Active 2 Loils Thomas APRN Personal history of colonic polyps [...] a day as needed 2 NAPROXEN SODIUM 10949455959 No Longer Active Baltazar Childers MD Active ATORVASTATIN CALCIUM 20 MG ORAL TABS Take 1 tab daily ATORVASTATIN CALCIUM 97347656394 Active Kelly Iraheta LPN Active FUROSEMIDE 40 MG TABS Take one by mouth daily FUROSEMIDE 77174535446 Active Baltazar Childers MD Active LISINOPRIL 20 MG TABS Take one by mouth daily at bedtime LISINOPRIL 98867346278 Active Baltazar Childers MD Active ONETOUCH ULTRA BLUE STRP Test twice a day GLUCO SE BLOOD 10134046567 No Longer Active Baltazar Childers MD Active TRUEPLUS LANCETS 33G MISC Test twice a day LANCET S 90504695971 Active Baltazar Childers MD Active TRUEDRAW LANCING DEVICE MISC Test twice a day L ANCET DEVICES 26384374000 Active Baltazar Childers MD Active TRUETRACK TEST STRP Test twice a day GLUCOSE BLOO D 57761311196 Active Baltazar Childers MD Active TRUETRACK BLOOD GLUCOSE W/DEVICE KIT Test twice a day BLOOD GLUCOSE MONITORING SUPPL 94271058744 Active Baltazar Childers MD Activ e HYDROCODONE-ACETAMINOPHEN 7.5-325 MG TABS Take 1 tab every 6-8 hour s PRN HYDROCODONE-ACETAMINOPHEN 81895501490 Active Baltazar Childers MD Active NORTRIPTYLINE HCL 50 MG CAPS 1 every night for neuropathy 4 NORTRIPTYLINE HCL 08395636420 Active Baltazar Childers MD Acti ve GABAPENTIN 300 MG CAPS 1 three times a day GABAPE NTIN 34379683851 Active Kelly JOHNNY Iraheta Active GABAPENTIN 300 MG CAPS 1 po qd x 2 days, then 1 po BID x 2 d ays, then 1 po TID GABAPENTIN 60452266281 No Longer Active Baltazar silverman MD Active TRAMADOL HCL 50 MG TABS 1 twice a day as needed for pain TRAMADOL HCL 83726376976 Active Baltazar Childers MD Active NAPROXEN 500 MG TABS 1 tablet by mouth twice daily NAPROXEN 54242279111 No Longer Active Baltazar Childers MD Active PROAIR HFA 108 (90 BASE) MCG/ACT AERS 2 puffs four times a d ay as needed ALBUTEROL SULFATE 76655727915 Active Baltazar Childers MD Active DEPO-TESTOSTERONE 200 MG/ML OIL as directed RUFINO TOSTERONE CYPIONATE 72704282483 No Longer Active Baltazar Childers MD Active LIPITOR 20 MG TABS Take one by mouth daily in evening ATORVASTATIN CALCIUM 85479328473 No Longer Active Baltazar Childers MD Activ e CRESTOR 10 MG TABS 1 by mouth every day R OSUVASTATIN CALCIUM 72258489301 No Longer Active Baltazar Childers MD Activ e PHENTERMINE HCL 37.5 MG TABS Take one by mouth daily 2 PHENTERMINE HCL 23794360084 No Longer Active Baltazar Childers MD Activ e ROBAXIN-750 750 MG TABS Take one by mouth daily ME THOCARBAMOL 59744125873 Active Baltazar Childers MD Active TIZANIDINE HCL 4 MG TABS 1 daily as needed for muscle spasm 2011 TIZANIDINE HCL 27177464401 No Longer Active Dawna Salazar RN Active [id number]-KWOV-ZGHNHEUH 50-325-40 MG TABS 1 four time s a day as needed for heacache [id number] 47497182100 Active Baltazar Childers MD Active SUMATRIPTAN SUCCINATE 100 MG TABS 1 tablet by mouth at onset of migraine as needed SUMATRIPTAN SUCCINATE 95207228578 Active Melody Paez Active LORATADINE 10 MG TABS Take one by mouth daily LORATADINE 57497241418 Active Baltazar Childers MD Active OMEPRAZOLE 20 MG CPDR Take one by mouth daily OMEPRAZOLE 52847027920 Active Baltazar Childers MD Active HYDROXYZINE HCL 25 MG TABS Take one by mouth daily HYDROXYZINE HCL 02015153859 Active Baltazar Childers MD Active GLIPIZIDE 10 MG TABS 1 tablet by mouth twice daily GLIPIZIDE 62428721388 Active Baltazar Childers MD Active ALPRAZOLAM 1 MG TABS 1 tablet by mouth daily at bedtime for restles s leg ALPRAZOLAM 57722023931 Active Baltazar Childers MD Active METFORMIN HCL 1000 MG TABS Take one by mouth twice daily METFORMIN HCL 10008595718 Active Baltazar Childers MD Active TIZANIDINE HCL 4 MG TABS 1 daily as needed for muscle spasm 2011 TIZANIDINE HCL 4 MG TABS 511347 TIZANIDINE HCL Inactiv e PHENTERMINE HCL 37.5 MG TABS Take one by mouth daily 2 PHENTERMINE HCL 37.5 MG TABS 347489 PHENTERMINE HCL Inactive CRESTOR 10 MG TABS 1 by mouth every day C RESTOR 10 MG TABS ROSUVASTATIN CALCIUM Inactive LIPITOR 20 MG TABS Take one by mouth daily in evening LIPITOR 20 MG TABS 140501 ATORVASTATIN CALCIUM Inactive DEPO-TESTOSTERONE 200 MG/ML OIL as directed 8 DEPO-TESTOSTERONE 200 MG/ML OIL 277896 TESTOSTERONE CYPIONATE Inactive NAPROXEN 500 MG TABS 1 tablet by mouth twice daily 201 07/27/22 NAPROXEN 500 MG TABS 997423 NAPROXEN Inactive GABAPENTIN 300 MG CAPS 1 po qd x 2 days, then 1 po BID x 2 d ays, then 1 po TID GABAPENTIN 300 MG CAPS 003517 GABAPENTIN Inact amie ONETOUCH ULTRA BLUE STRP Test twice a day ONETOUCH ULTRA BLUE STRP GLUCOSE BLOOD Inactive NAPROXEN SODIUM 220 MG ORAL TABS 1 three times a day as needed 2 NAPROXEN SODIUM 220 MG ORAL TABS 358137 NAPROXEN SODIUM Inactive Immunizations Vaccine Administration Date Value Standard Floyd cription pneumococcal immunization administered Pneumovax 23 [CVX33] pneumococcal polysaccharide vaccine, 23 valent Seasonal influenza vaccine, injectable, containing preservative, for > 3 years old (Afluria, FluLaval, Fluzone, Fluvirin, Fluarix, Agriflu(>= 18 yo)) Fluzone (>3 yrs.) [[id number]] Influenza, seasonal, inject able Seasonal influenza vaccine, injectable, containing preservative, for > 3 years old (Afluria, FluLaval, Fluzone, Fluvirin, Fluarix, Agriflu(>= 18 yo)) Fluzone (>3 yrs.) [[id number]] Influenza, seasonal, inject able Vital Signs Date [...] - Chem istry sodium, serum 140 mmol/L 533-971 8564/05/05 potassium, serum 4.9 mmol/L 3.5-5.2 chloride, serum 99 mmol/L 98-107 carbon dioxide, venous blood 34.3 mmol/L 21.0-32 .0 blood glucose 132 mg/dL 65-110 calcium, serum 10.1 mg/dL 8.5-10.1 urea nitrogen, blood 23 mg/dL 7-18 creatinine, serum 2.00 mg/dL 0.60-1.30 Lab Report: Comp. Metabolic Panel, Lipid Panel - Chemistry sodium, serum 138 mmol/L 479-344 5192/11/23 carbon dioxide, venous blood 32.4 mmol/L 21.0-32 .0 potassium, serum 5.7 mmol/L 3.5-5.2 chloride, serum 98 mmol/L 98-107 blood glucose 136 mg/dL 65-110 urea nitrogen, blood 18 mg/dL 7-18 creatinine, serum 1.71 mg/dL 0.55-1.30 alanine aminotransferase (SGPT), serum 71 U/L 12-78 aspartate aminotransferase (SGOT), serum 34 U/L 15-37 calcium, serum 9.4 mg/dL 8.5-10.1 bilirubin, serum, total 0.40 mg/dL 0.00-1.00 cholesterol, serum 405 mg/dL 882-827 9743/11/23 triglyceride, serum, fasting 709 mg/dL 30-200 HDL [...] mg/dL Encounters Code Encounter Date Provider Facility CPT-10209 Level 4 Est. Patient 16:54:07 CLINICAL TRIALS SYSTEMS ADMINISTRATOR Baltazar Childers MD [facility] CPT-92284 Level 4 Est. Patient 15:42:12 CDT Baltazar Childers MD [facility] CPT-67916 Level 4 Est. Patient 11:29:55 CDT Baltazar Childers MD [facility] CPT-92842 Level 4 Est. Patient 14:15:19 CDT Baltazar Childers MD [facility] CPT-94225 Level 4 Est. Patient 12:20:13 CDT Baltazar Childers MD [facility] CPT-89270 Level 4 Est. Patient 14:52:45 CLINICAL TRIALS SYSTEMS ADMINISTRATOR Baltazar Childers MD [facility] CPT-06066 Level 4 Est. Patient 14:18:34 CLINICAL TRIALS SYSTEMS ADMINISTRATOR Baltazar Childers MD [facility] CPT-33190 Level 4 Est. Patient 15:18:29 CDT Baltazar Childers MD [facility] CPT-30619 Level 3 Est. Patient 12:45:34 CDT Baltazar Childers MD [facility] CPT-33775 Level 3 Est. Patient 10:10:11 CDT Baltazar Childers MD [facility] CPT-63396 Level 3 Est. Patient 14:07:50 CDT Baltazar Childers MD [facility] CPT-73732 Level 4 Est. Patient 12:26:10 CLINICAL TRIALS SYSTEMS ADMINISTRATOR Baltazar Childers MD [facility] CPT-34338 Level 4 Est. Patient 14:45:38 CDT Baltazar Childers MD [facility] CPT-18154 Level 4 New Patient 12:30:48 CDT Baltazar hinton MD [facility] Procedures Code Procedure Name Date Entry Date Standard Desc ription CPT-67347 Venipuncture Draw Fee 14:50:21 CLINICAL TRIALS SYSTEMS ADMINISTRATOR CPT-17562 Immunization Single Admin 17:35:35 CDT 2014 CPT-85384 Fluzone Quadrivalent preservative free ( >=3yrs.) 17:35:35 CDT CPT-42605 Venipuncture Draw Fee 12:10:27 CLINICAL TRIALS SYSTEMS ADMINISTRATOR CPT-92293 Fluzone Quadrivalent Intramuscular Suspe nsion 0.5 ML 10:49:13 CDT CPT-27339 First Vx Component - Ix admi n via ID IM or jet inj without physician counseling 15:17:19 CLINICAL TRIALS SYSTEMS ADMINISTRATOR CPT-30921 Pneumovax 23 15:17:19 CLINICAL TRIALS SYSTEMS ADMINISTRATOR CPT-89201 Pneumovax 14:52:45 CLINICAL TRIALS SYSTEMS ADMINISTRATOR CPT-34310 Venipuncture Draw Fee 14:06:30 CLINICAL TRIALS SYSTEMS ADMINISTRATOR CPT-000 Give Appropriate Flu Vaccine 14:18:34 CLINICAL TRIALS SYSTEMS ADMINISTRATOR 2 CPT-70528 Administration single or combination vac cine inc oral 14:46:00 CLINICAL TRIALS SYSTEMS ADMINISTRATOR CPT-44096 Influenza split virus > age 3 14:46:00 CLINICAL TRIALS SYSTEMS ADMINISTRATOR CPT-OV Office Visit 19:13:16 CDT CPT-07417 Zostavax 18:41:56 CDT CPT-38194 Administration single or combination vac cine inc oral 12:56:39 CDT CPT-52959 Zoster Vaccine (Zostavax) 12:56:39 CDT 2012 CPT-37504 Venipuncture Draw Fee 10:58:57 CDT CPT-04922 Sono pelvis non OB uterus ovaries cervix 17:45:04 CDT CPT-69875 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
--- OUTSIDE RECORDS SUMMARY | 2019-10-27 13:11 | XMS REPORT | Clinical Summary ---
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 Benign neoplasm of colon PERIPHERAL NEUROPATHY [...] ronary atherosclerosis of unspecified type of vessel, resighini or graft OTH NONSPC ABN FINDNG RAD&OTH [...] 1 tab daily for HTN AMLODIPINE BESYLATE 36373172294 Active Ct Ledesma LPN Active SYNTHROID 0.1 MG TAB 1 tablet by mouth daily LE VOTHYROXINE SODIUM 37182465595 Active Carina Tucker LPN Active GLIPIZIDE 10 MG TAB take 2 tablets twice daily GLIPIZIDE 57735006019 Active Baltazar Childers MD Active SUCRALFATE 1 GM TABS 1 four times a day to coat the stomach 2015 SUCRALFATE 88840668372 No Longer Active Baltazar Childers MD Active PEN NEEDLES 31G X 6 MM MISC use 1 daily INSULIN PEN NEEDLE 03940601353 Active Bella Suarez CHIEF COMPRESSOR STATION ENGINEER Active TOUJEO SOLOSTAR 300 UNIT/ML SC SOPN 10 units SC daily INSULIN GLARGINE 43718828788 No Longer Active Martita Godinez RMA Active LANTUS SOLOSTAR 100 UNIT/ML SC SOPN 10 units SC daily INSULIN GLARGINE 83887121297 Active Baltazar Childers MD Active NAPROXEN SODIUM 220 MG ORAL TABS 1 three times a day as needed 2 NAPROXEN SODIUM 08540879771 No Longer Active Baltazar Childers MD Active ATORVASTATIN CALCIUM 20 MG ORAL TABS Take 1 tab daily ATORVASTATIN CALCIUM 05430975605 Active Baltazar Childers MD Active FUROSEMIDE 40 MG TABS Take one by mouth daily FUROSEMIDE 32580234230 Active Baltazar Childers MD Active LISINOPRIL 20 MG TABS Take one by mouth daily at bedtime LISINOPRIL 71863496677 No Longer Active Baltazar Childers MD Active ONETOUCH ULTRA BLUE STRP Test twice a day GLUCO SE BLOOD 16880779765 No Longer Active Baltazar Childers MD Active TRUEPLUS LANCETS 33G MISC Test twice a day LANCET S 06458122421 Active KENDALL Juarez Active TRUEDRAW LANCING DEVICE MISC Test twice a day L ANCET DEVICES 48623478808 Active Baltazar Childers MD Active TRUETRACK TEST STRP Test twice a day GLUCOSE BLOO D 80899690843 Active KENDALL Juarez Active TRUETRACK BLOOD GLUCOSE W/DEVICE KIT Test twice a day BLOOD GLUCOSE MONITORING SUPPL 33916001593 Active Baltazar Childers MD Activ e HYDROCODONE-ACETAMINOPHEN 7.5-325 MG TABS Take 1 tab every 6-8 hour s PRN HYDROCODONE-ACETAMINOPHEN 71809782943 Active Baltazar Childers MD Active NORTRIPTYLINE HCL 50 MG CAPS 1 every night for neuropathy 4 NORTRIPTYLINE HCL 89912410596 Active Baltazar Childers MD Acti ve GABAPENTIN 300 MG CAPS 1 three times a day GABAPE NTIN 39744615669 Active Baltazar Childers MD Active GABAPENTIN 300 MG CAPS 1 po qd x 2 days, then 1 po BID x 2 d ays, then 1 po TID GABAPENTIN 18154953462 No Longer Active Baltazar silverman MD Active TRAMADOL HCL 50 MG TABS 1 twice a day as needed for pain TRAMADOL HCL 28891749358 Active Baltazar Childers MD Active NAPROXEN 500 MG TABS 1 tablet by mouth twice daily NAPROXEN 72465686985 No Longer Active Baltazar Childers MD Active PROAIR HFA 108 (90 BASE) MCG/ACT AERS 2 puffs four times a d ay as needed ALBUTEROL SULFATE 84498436597 Active Baltazar Childers MD Active DEPO-TESTOSTERONE 200 MG/ML OIL as directed RUFINO TOSTERONE CYPIONATE 85765800766 No Longer Active Baltazar Childers MD Active LIPITOR 20 MG TABS Take one by mouth daily in evening ATORVASTATIN CALCIUM 90515607752 No Longer Active Baltazar Childers MD Activ e CRESTOR 10 MG TABS 1 by mouth every day R OSUVASTATIN CALCIUM 81041759834 No Longer Active Baltazar Childers MD Activ e PHENTERMINE HCL 37.5 MG TABS Take one by mouth daily 2 PHENTERMINE HCL 12068014551 No Longer Active Baltazar Childers MD Activ e ROBAXIN-750 750 MG TABS Take one by mouth daily ME THOCARBAMOL 92876239551 Active Baltazar Childers MD Active TIZANIDINE HCL 4 MG TABS 1 daily as needed for muscle spasm 2011 TIZANIDINE HCL 23916943426 No Longer Active Dawna Salazar RN Active [id number] 50-325-40 MG TABS 1 four time s a day as needed for heacache [id number] 85012301928 Active Baltazar Childers MD Active SUMATRIPTAN SUCCINATE 100 MG TABS 1 tablet by mouth at onset of migraine as needed SUMATRIPTAN SUCCINATE 30255249922 Active Shonna richey APRN Active LORATADINE 10 MG TABS Take one by mouth daily LORATADINE 62338816369 Active KENDALL Juarez Active OMEPRAZOLE 20 MG CPDR Take one by mouth daily OMEPRAZOLE 95524451824 Active Baltazar Childers MD Active HYDROXYZINE HCL 25 MG TABS Take one by mouth daily HYDROXYZINE HCL 83439372108 Active Baltazar Childers MD Active ALPRAZOLAM 1 MG TABS 1 tablet by mouth daily at bedtime for restles s leg ALPRAZOLAM 74461426599 Active Baltazar Childers MD Active METFORMIN HCL 1000 MG TABS Take one by mouth twice daily METFORMIN HCL 12356107113 Active Baltazar Childers MD Active TIZANIDINE HCL 4 MG TABS 1 daily as needed for muscle spasm 2011 TIZANIDINE HCL 4 MG TABS 918243 TIZANIDINE HCL Inactiv e PHENTERMINE HCL 37.5 MG TABS Take one by mouth daily 2 PHENTERMINE HCL 37.5 MG TABS 251944 PHENTERMINE HCL Inactive CRESTOR 10 MG TABS 1 by mouth every day C RESTOR 10 MG TABS 671608 ROSUVASTATIN CALCIUM Inactive LIPITOR 20 MG TABS Take one by mouth daily in evening LIPITOR 20 MG TABS 587861 ATORVASTATIN CALCIUM Inactive DEPO-TESTOSTERONE 200 MG/ML OIL as directed 8 DEPO-TESTOSTERONE 200 MG/ML OIL 710417 TESTOSTERONE CYPIONATE Inactive NAPROXEN 500 MG TABS 1 tablet by mouth twice daily 201 07/27/22 NAPROXEN 500 MG TABS 141558 NAPROXEN Inactive GABAPENTIN 300 MG CAPS 1 po qd x 2 days, then 1 po BID x 2 d ays, then 1 po TID GABAPENTIN 300 MG CAPS 923227 GABAPENTIN Inact amie ONETOUCH ULTRA BLUE STRP Test twice a day ONETOUCH ULTRA BLUE STRP GLUCOSE BLOOD Inactive NAPROXEN SODIUM 220 MG ORAL TABS 1 three times a day as needed 2 NAPROXEN SODIUM 220 MG ORAL TABS 617683 NAPROXEN SODIUM Inactive TOUJEO SOLOSTAR 300 UNIT/ML SC SOPN 10 units SC daily TOUJEO SOLOSTAR 300 UNIT/ML SC SOPN INSULIN GLARGINE Inac tive SUCRALFATE 1 GM TABS 1 four times a day to coat the stomach 2015 SUCRALFATE 1 GM TABS 639349 SUCRALFATE Inactive Immunizations Vaccine Administration Date Value Standard Floyd cription pneumococcal immunization administered Pneumovax 23 [CVX33] pneumococcal polysaccharide vaccine, 23 valent Seasonal influenza vaccine, injectable, containing preservative, for > 3 years old (Afluria, FluLaval, Fluzone, Fluvirin, Fluarix, Agriflu(>= 18 yo)) Fluzone (>3 yrs.) [[id number]] Influenza, seasonal, inject able Seasonal influenza vaccine, injectable, containing preservative, for > 3 years old (Afluria, FluLaval, Fluzone, Fluvirin, Fluarix, Agriflu(>= 18 yo)) Fluzone (>3 yrs.) [AUD092] Influenza, seasonal, inject able Vital Signs Date [...] C - Chemistry sodium, serum 139 mmol/L 234-188 4104/07/07 potassium, serum 4.5 mmol/L 3.5-5.2 chloride, serum 99 mmol/L 98-107 carbon dioxide, venous blood 33.8 mmol/L 21.0-32 .0 blood glucose 209 mg/dL 65-110 calcium, serum 9.8 mg/dL 8.5-10.1 urea nitrogen, blood 14 mg/dL 7-18 creatinine, serum 1.89 mg/dL 0.55-1.30 hemoglobin A1C, blood, as % of total hemoglobin 8.3 % 4.3-6.0 sodium, serum 143 mmol/L 348-793 3267/06/19 potassium, serum 5.9 mmol/L 3.5-5.2 chloride, serum [...] Panel - Chemistry sodium, serum 143 mmol/L 110-718 2326/12/19 carbon dioxide, venous blood 32.5 mmol/L 21.0-32 .0 potassium, serum 4.9 mmol/L 3.5-5.2 chloride, serum 101 mmol/L 98-107 blood glucose 129 mg/dL 65-110 urea nitrogen, blood 18 mg/dL 7-18 creatinine, serum 1.79 mg/dL 0.55-1.30 alanine aminotransferase (SGPT), serum 34 U/L 12-78 aspartate aminotransferase (SGOT), serum 26 U/L 15-37 calcium, serum 8.9 mg/dL 8.5-10.1 bilirubin, serum, total 0.30 mg/dL 0.00-1.00 cholesterol, serum 214 mg/dL 985-986 7570/12/19 triglyceride, serum, fasting 351 mg/dL 30-200 HDL [...] Panel - Chemistry sodium, serum 141 mmol/L 523-282 8900/08/08 potassium, serum 4.9 mmol/L 3.5-5.2 chloride, serum 101 mmol/L 98-107 carbon dioxide, venous blood 34.1 mmol/L 21.0-32 .0 creatinine, serum 1.98 mg/dL 0.55-1.30 blood glucose 193 mg/dL 65-110 urea nitrogen, blood 30 mg/dL 7-18 calcium, serum 9.8 mg/dL 8.5-10.1 Encounters Code Encounter Date Provider Facility CPT-99936 Level 4 Est. Patient 14:22:31 CDT Baltazar Childers MD [facility]-99914 Level 4 Est. Patient 15:44:38 CDT Shonna Parker [facility]-72446 Level 4 Est. Patient 11:34:17 CDT Baltazar Childers MD [facility]-86438 Level 3 Est. Patient 16:40:40 CDT Baltazar Childers MD [facility]-35430 Level 4 Est. Patient 10:41:24 CDT Baltazar Childers MD [facility]-61569 Level 4 Est. Patient 16:01:48 CDT Baltazar Childers MD [facility]-87294 Level 4 Est. Patient 16:54:07 COMMERCIAL REPORTER Baltazar Childers MD [facility]-76570 Level 4 Est. Patient 15:42:12 CDT Baltazar Childers MD [facility] CPT-93991 Level 4 Est. Patient 11:29:55 CDT Baltazar Childers MD [facility] CPT-14724 Level 4 Est. Patient 14:15:19 CDT Baltazar Childers MD [facility] CPT-89566 Level 4 Est. Patient 12:20:13 CDT Baltazar Childers MD [facility] CPT-25743 Level 4 Est. Patient 14:52:45 COMMERCIAL REPORTER Baltazar Childers MD [facility] CPT-19184 Level 4 Est. Patient 14:18:34 COMMERCIAL REPORTER Baltazar Childers MD [facility] CPT-47629 Level 4 Est. Patient 15:18:29 CDT Baltazar Childers MD [facility] CPT-28588 Level 3 Est. Patient 12:45:34 CDT Baltazar Childers MD [facility] CPT-72702 Level 3 Est. Patient 10:10:11 CDT Baltazar Childers MD [facility] CPT-58315 Level 3 Est. Patient 14:07:50 CDT Baltazar Childers MD [facility] CPT-03896 Level 4 Est. Patient 12:26:10 COMMERCIAL REPORTER Baltazar Childers MD [facility] CPT-75079 Level 4 Est. Patient 14:45:38 CDT Baltazar Childers MD [facility] CPT-38556 Level 4 New Patient 12:30:48 CDT Baltazar hinton MD [facility] Procedures Code Procedure Name Date Entry Date Standard Desc ription CPT-27377 Lipid - LAB USE ONLY 17:39:15 COMMERCIAL REPORTER 9 CPT-47560 HGBA1C - LAB USE ONLY 17:39:15 COMMERCIAL REPORTER CPT-64242 CMP - LAB USE ONLY 17:39:14 COMMERCIAL REPORTER CPT-79138 Venipuncture Draw Fee 17:39:14 COMMERCIAL REPORTER CPT-94944 First Vx - Ix admin via ID I M or jet injects without counseling by physician 16:55:17 COMMERCIAL REPORTER CPT-78119 Fluzone Quadrivalent Intramuscular Suspe nsion 0.5 ML 16:55:17 COMMERCIAL REPORTER CPT-96358 Renal Panel - LAB USE ONLY 17:39:20 CDT 201 10/31/07 CPT-05706 CBC - LAB USE ONLY 17:39:20 CDT CPT-32422 Venipuncture Draw Fee 17:39:20 CDT CPT-12168 Venipuncture Draw Fee 14:33:30 CDT CPT-36644 Renal Panel - LAB USE ONLY 14:33:30 CDT 201 10/31/07 CPT-96363 CBC - LAB USE ONLY 14:33:29 CDT CPT-01024 Venipuncture Draw Fee 14:50:21 COMMERCIAL REPORTER CPT-26839 Immunization Single Admin 17:35:35 CDT 2014 CPT-83788 Fluzone Quadrivalent preservative free ( >=3yrs.) 17:35:35 CDT CPT-40786 Venipuncture Draw Fee 12:10:27 COMMERCIAL REPORTER CPT-84691 Fluzone Quadrivalent Intramuscular Suspe nsion 0.5 ML 10:49:13 CDT CPT-82818 First Vx Component - Ix admi n via ID IM or jet inj without physician counseling 15:17:19 COMMERCIAL REPORTER CPT-05348 Pneumovax 23 15:17:19 COMMERCIAL REPORTER CPT-78956 Pneumovax 14:52:45 COMMERCIAL REPORTER CPT-96718 Venipuncture Draw Fee 14:06:30 COMMERCIAL REPORTER CPT-000 Give Appropriate Flu Vaccine 14:18:34 COMMERCIAL REPORTER 2 CPT-76711 Administration single or combination vac cine inc oral 14:46:00 COMMERCIAL REPORTER CPT-63252 Influenza split virus > age 3 14:46:00 COMMERCIAL REPORTER CPT-OV Office Visit 19:13:16 CDT CPT-96779 Zostavax 18:41:56 CDT CPT-54628 Administration single or combination vac cine inc oral 12:56:39 CDT CPT-21565 Zoster Vaccine (Zostavax) 12:56:39 CDT 2012 CPT-03137 Venipuncture Draw Fee 10:58:57 CDT CPT-73549 Sono pelvis non OB uterus ovaries cervix 17:45:04 CDT CPT-33559 Sono retroperitoneal complete kidneys an d bladder 17:14:36 CDT CPT-OV Office Visit 14:59:38 COMMERCIAL REPORTER CPT-J1070 Depo Testosterone 100 mg 14:50:13 CDT 03/05 CPT-59686 Abx/Therapy Injection 14:50:13 CDT CPT-20253 Administration single or combination vac cine inc oral 14:34:43 CDT CPT-85243 Influenza split virus > age 3 14:34:43 CDT CPT-J1070 Depo Testosterone 100 mg 17:37:13 CDT 01/11 CPT-41900 Abx/Therapy Injection 17:37:13 CDT CPT-63075 Venipuncture Draw Fee 16:30:13 CDT CPT-07563 Venipuncture Draw Fee 16:29:43 CDT CPT-J1070 Depo Testosterone 100 mg 14:45:38 CDT 01/11
--- OUTSIDE RECORDS SUMMARY | 2019-10-27 13:11 | XMS REPORT | Clinical Summary ---
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 Benign neoplasm of colon PERIPHERAL NEUROPATHY [...] ronary atherosclerosis of unspecified type of vessel, [place] or graft OTH NONSPC ABN FINDNG RAD&OTH [...] MISC use 1 daily INSULIN PEN NEEDLE 23947657695 Active Martita Herbert RMA Active TOUJEO SOLOSTAR 300 UNIT/ML SC SOPN 10 units SC daily INSULIN GLARGINE 43121205426 No Longer Active Martita Herbert RMA Active LANTUS SOLOSTAR 100 UNIT/ML SC SOPN 10 units SC daily INSULIN GLARGINE 27566744832 Active Martita Herbert RMA Active NAPROXEN SODIUM 220 MG ORAL TABS 1 three times a day as needed 2 NAPROXEN SODIUM 90809435279 No Longer Active Baltazar Childers MD Active ATORVASTATIN CALCIUM 20 MG ORAL TABS Take 1 tab daily ATORVASTATIN CALCIUM 53047807051 Active KENDALL Juarez Active FUROSEMIDE 40 MG TABS Take one by mouth daily FUROSEMIDE 48116526278 Active Baltazar Childers MD Active LISINOPRIL 20 MG TABS Take one by mouth daily at bedtime LISINOPRIL 83221344044 Active Baltazar Childers MD Active ONETOUCH ULTRA BLUE STRP Test twice a day GLUCO SE BLOOD 53395077110 No Longer Active Baltazar Childers MD Active TRUEPLUS LANCETS 33G MISC Test twice a day LANCET S 39062376106 Active KENDALL Juarez Active TRUEDRAW LANCING DEVICE MISC Test twice a day L ANCET DEVICES 97071696568 Active Baltazar Childers MD Active TRUETRACK TEST STRP Test twice a day GLUCOSE BLOO D 81963535159 Active KENDALL Juarez Active TRUETRACK BLOOD GLUCOSE W/DEVICE KIT Test twice a day BLOOD GLUCOSE MONITORING SUPPL 94492014668 Active Baltazar Childers MD Activ e HYDROCODONE-ACETAMINOPHEN 7.5-325 MG TABS Take 1 tab every 6-8 hour s PRN HYDROCODONE-ACETAMINOPHEN 51960508098 Active Baltazar Childers MD Active NORTRIPTYLINE HCL 50 MG CAPS 1 every night for neuropathy 4 NORTRIPTYLINE HCL 72740643203 Active Baltazar Childers MD Acti ve GABAPENTIN 300 MG CAPS 1 three times a day GABAPE NTIN 79463616004 Active Baltazar Childers MD Active GABAPENTIN 300 MG CAPS 1 po qd x 2 days, then 1 po BID x 2 d ays, then 1 po TID GABAPENTIN 47219352548 No Longer Active Baltazar silverman MD Active TRAMADOL HCL 50 MG TABS 1 twice a day as needed for pain TRAMADOL HCL 93894084379 Active Baltazar Childers MD Active NAPROXEN 500 MG TABS 1 tablet by mouth twice daily NAPROXEN 22352835303 No Longer Active Baltazar Childers MD Active PROAIR HFA 108 (90 BASE) MCG/ACT AERS 2 puffs four times a d ay as needed ALBUTEROL SULFATE 08293712475 Active KENDALL Juarez Active DEPO-TESTOSTERONE 200 MG/ML OIL as directed RUFINO TOSTERONE CYPIONATE 89514709781 No Longer Active Baltazar Childers MD Active LIPITOR 20 MG TABS Take one by mouth daily in evening ATORVASTATIN CALCIUM 76411612175 No Longer Active Baltazar Childers MD Activ e CRESTOR 10 MG TABS 1 by mouth every day R OSUVASTATIN CALCIUM 27162542826 No Longer Active Baltazar Childers MD Activ e PHENTERMINE HCL 37.5 MG TABS Take one by mouth daily 2 PHENTERMINE HCL 24620559060 No Longer Active Baltazar Childers MD Activ e ROBAXIN-750 750 MG TABS Take one by mouth daily ME THOCARBAMOL 99656871534 Active Baltazar Childers MD Active TIZANIDINE HCL 4 MG TABS 1 daily as needed for muscle spasm 2011 TIZANIDINE HCL 44805946032 No Longer Active Dawna Salazar RN Active AHGEFYREKC-[id number]-[id number] 50-325-40 MG TABS 1 four time s a day as needed for heacache [id number] 03649316455 Active Baltazar Childers MD Active SUMATRIPTAN SUCCINATE 100 MG TABS 1 tablet by mouth at onset of migraine as needed SUMATRIPTAN SUCCINATE 08509920338 Active KENDALL Juarez Active LORATADINE 10 MG TABS Take one by mouth daily LORATADINE 12350852102 Active Baltazar Childers MD Active OMEPRAZOLE 20 MG CPDR Take one by mouth daily OMEPRAZOLE 91416854130 Active [place] Fitzgeralder Active HYDROXYZINE HCL 25 MG TABS Take one by mouth daily HYDROXYZINE HCL 85494435764 Active Baltazar Childers MD Active GLIPIZIDE 10 MG TABS 1 tablet by mouth twice daily GLIPIZIDE 58638065956 Active Baltazar Childers MD Active ALPRAZOLAM 1 MG TABS 1 tablet by mouth daily at bedtime for restles s leg ALPRAZOLAM 65931638132 Active Baltazar Cihlders MD Active METFORMIN HCL 1000 MG TABS Take one by mouth twice daily METFORMIN HCL 64905859219 Active Baltazar Childers MD Active TIZANIDINE HCL 4 MG TABS 1 daily as needed for muscle spasm 2011 TIZANIDINE HCL 4 MG TABS 565270 TIZANIDINE HCL Inactiv e PHENTERMINE HCL 37.5 MG TABS Take one by mouth daily 2 PHENTERMINE HCL 37.5 MG TABS 944192 PHENTERMINE HCL Inactive CRESTOR 10 MG TABS 1 by mouth every day C RESTOR 10 MG TABS 038116 ROSUVASTATIN CALCIUM Inactive LIPITOR 20 MG TABS Take one by mouth daily in evening LIPITOR 20 MG TABS 010906 ATORVASTATIN CALCIUM Inactive DEPO-TESTOSTERONE 200 MG/ML OIL as directed 8 DEPO-TESTOSTERONE 200 MG/ML OIL 424884 TESTOSTERONE CYPIONATE Inactive NAPROXEN 500 MG TABS 1 tablet by mouth twice daily 201 07/27/22 NAPROXEN 500 MG TABS 082635 NAPROXEN Inactive GABAPENTIN 300 MG CAPS 1 po qd x 2 days, then 1 po BID x 2 d ays, then 1 po TID GABAPENTIN 300 MG CAPS 304667 GABAPENTIN Inact amie ONETOUCH ULTRA BLUE STRP Test twice a day ONETOUCH ULTRA BLUE STRP GLUCOSE BLOOD Inactive NAPROXEN SODIUM 220 MG ORAL TABS 1 three times a day as needed 2 NAPROXEN SODIUM 220 MG ORAL TABS 620084 NAPROXEN SODIUM Inactive TOUJEO SOLOSTAR 300 UNIT/ML [...] Fluarix, Agriflu(>= 18 yo)) Fluzone (>3 yrs.) [[id number]] Influenza, seasonal, inject able Seasonal influenza vaccine, injectable, containing preservative, for > 3 years old (Afluria, FluLaval, Fluzone, Fluvirin, Fluarix, Agriflu(>= 18 yo)) Fluzone (>3 yrs.) [[id number]] Influenza, seasonal, inject able Vital Signs Date [...] C - Chemistry sodium, serum 139 mmol/L 774-011 5205/07/07 potassium, serum 4.5 mmol/L 3.5-5.2 chloride, serum [...] 7.9 % 4.3-6.0 sodium, serum 139 mmol/L 929-162 4325/02/04 potassium, serum 5.4 mmol/L 3.5-5.2 chloride, serum [...] mmol/L 21.0-32 .0 sodium, serum 138 mmol/L 982-312 0436/11/23 potassium, serum 5.7 mmol/L 3.5-5.2 chloride, serum 98 mmol/L 98-107 blood glucose 136 mg/dL 65-110 urea nitrogen, blood 18 mg/dL 7-18 creatinine, serum 1.71 mg/dL 0.55-1.30 alanine aminotransferase (SGPT), serum 71 U/L 12-78 aspartate aminotransferase (SGOT), serum 34 U/L 15-37 calcium, serum 9.4 mg/dL 8.5-10.1 bilirubin, serum, total 0.40 mg/dL 0.00-1.00 cholesterol, serum 405 mg/dL 877-664 7307/11/23 triglyceride, serum, fasting 709 mg/dL 30-200 HDL [...] Panel - Chemistry sodium, serum 141 mmol/L 500-388 9983/08/08 potassium, serum 4.9 mmol/L 3.5-5.2 chloride, serum [...] mg/dL Encounters Code Encounter Date Provider Facility CPT-24937 Level 3 Est. Patient 16:40:40 CDT Baltazar Childers MD [facility] CPT-21150 Level 4 Est. Patient 10:41:24 CDT Baltazar Childers MD [facility]-27043 Level 4 Est. Patient 16:01:48 CDT Baltazar Childers MD [facility] CPT-76542 Level 4 Est. Patient 16:54:07 STOCKLAYER Baltazar Childers MD [facility]-25747 Level 4 Est. Patient 15:42:12 CDT Baltazar Childers MD [facility] CPT-24219 Level 4 Est. Patient 11:29:55 CDT Baltazar Childers MD [facility]-72587 Level 4 Est. Patient 14:15:19 CDT Baltazar Childers MD [facility] CPT-30074 Level 4 Est. Patient 12:20:13 CDT Baltazar Childers MD [facility] CPT-84037 Level 4 Est. Patient 14:52:45 STOCKLAYER Baltazar Childers MD [facility] CPT-20101 Level 4 Est. Patient 14:18:34 STOCKLAYER Baltazar Childers MD [facility] CPT-36176 Level 4 Est. Patient 15:18:29 CDT Baltazar Childers MD [facility] CPT-57718 Level 3 Est. Patient 12:45:34 CDT Baltazar Childers MD [facility] CPT-04990 Level 3 Est. Patient 10:10:11 CDT Baltazar Childers MD [facility] CPT-85853 Level 3 Est. Patient 14:07:50 CDT Baltazar Childers MD [facility] CPT-75830 Level 4 Est. Patient 12:26:10 STOCKLAYER Baltazar Childers MD [facility] CPT-48324 Level 4 Est. Patient 14:45:38 CDT Baltazar Childers MD [facility] CPT-41267 Level 4 New Patient 12:30:48 CDT Baltazar hinton MD [facility] Procedures Code Procedure Name Date Entry Date Standard Desc ription CPT-17628 Renal Panel - LAB USE ONLY 17:39:20 CDT 201 10/31/07 CPT-35736 CBC - LAB USE ONLY 17:39:20 CDT CPT-93151 Venipuncture Draw Fee 17:39:20 CDT CPT-42338 Venipuncture Draw Fee 14:33:30 CDT CPT-73688 Renal Panel - LAB USE ONLY 14:33:30 CDT 201 10/31/07 CPT-68415 CBC - LAB USE ONLY 14:33:29 CDT CPT-00716 Venipuncture Draw Fee 14:50:21 STOCKLAYER CPT-20747 Immunization Single Admin 17:35:35 CDT 2014 CPT-77246 Fluzone Quadrivalent preservative free ( >=3yrs.) 17:35:35 CDT CPT-73681 Venipuncture Draw Fee 12:10:27 STOCKLAYER CPT-54194 Fluzone Quadrivalent Intramuscular Suspe nsion 0.5 ML 10:49:13 CDT CPT-27845 First Vx Component - Ix admi n via ID IM or jet inj without physician counseling 15:17:19 STOCKLAYER CPT-24183 Pneumovax 23 15:17:19 STOCKLAYER CPT-70667 Pneumovax 14:52:45 STOCKLAYER CPT-60840 Venipuncture Draw Fee 14:06:30 STOCKLAYER CPT-000 Give Appropriate Flu Vaccine 14:18:34 STOCKLAYER 2 CPT-83088 Administration single or combination vac cine inc oral 14:46:00 STOCKLAYER CPT-45247 Influenza split virus > age 3 14:46:00 STOCKLAYER CPT-OV Office Visit 19:13:16 CDT CPT-79777 Zostavax 18:41:56 CDT CPT-70572 Administration single or combination vac cine inc oral 12:56:39 CDT CPT-64747 Zoster Vaccine (Zostavax) 12:56:39 CDT 2012 CPT-57005 Venipuncture Draw Fee 10:58:57 CDT CPT-98113 Sono pelvis non OB uterus ovaries cervix 17:45:04 CDT CPT-68655 Sono retroperitoneal complete kidneys an d bladder 17:14:36 CDT CPT-OV Office Visit 14:59:38 STOCKLAYER CPT-J1070 Depo Testosterone 100 mg 14:50:13 CDT 03/05 CPT-55185 Abx/Therapy Injection 14:50:13 CDT CPT-65571 Administration single or combination vac cine inc oral 14:34:43 CDT CPT-36928 Influenza split virus > age 3 14:34:43 CDT CPT-J1070 Depo Testosterone 100 mg 17:37:13 CDT 01/11 CPT-53303 Abx/Therapy Injection 17:37:13 CDT CPT-88099 Venipuncture Draw Fee 16:30:13 CDT CPT-06507 Venipuncture Draw Fee 16:29:43 CDT CPT-J1070 Depo Testosterone 100 mg 14:45:38 CDT 01/11
--- OUTSIDE RECORDS SUMMARY | 2019-10-27 13:12 | XMS REPORT | Clinical Summary ---
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 Benign neoplasm of colon PERIPHERAL NEUROPATHY 356.9 [...] day to coat the stomach 2015 SUCRALFATE 57431572869 No Longer Active Baltazar Childers MD Active PEN NEEDLES 31G X 6 MM MISC use 1 daily INSULIN PEN NEEDLE 67067595598 Active Bella Suarez COTTON STRIPPER Active TOUJEO SOLOSTAR 300 UNIT/ML SC SOPN 10 units SC daily INSULIN GLARGINE 09935385694 No Longer Active Martita Godinez RMA Active LANTUS SOLOSTAR 100 UNIT/ML SC SOPN 10 units SC daily INSULIN GLARGINE 76129660049 Active Baltazar Childers MD Active NAPROXEN SODIUM 220 MG ORAL TABS 1 three times a day as needed 2 NAPROXEN SODIUM 48076653657 No Longer Active Baltazar Childers MD Active ATORVASTATIN CALCIUM 20 MG ORAL TABS Take 1 tab daily ATORVASTATIN CALCIUM 43759372139 Active Baltazar Childers MD Active FUROSEMIDE 40 MG TABS Take one by mouth daily FUROSEMIDE 51219159110 Active Baltazar Childers MD Active LISINOPRIL 20 MG TABS Take one by mouth daily at bedtime LISINOPRIL 85563452472 Active Baltazar Childers MD Active ONETOUCH ULTRA BLUE STRP Test twice a day GLUCO SE BLOOD 76461013911 No Longer Active Baltazar Childers MD Active TRUEPLUS LANCETS 33G MISC Test twice a day LANCET S 74443551216 Active KENDALL Juarez Active TRUEDRAW LANCING DEVICE MISC Test twice a day L ANCET DEVICES 63519595988 Active Baltazar Childers MD Active TRUETRACK TEST STRP Test twice a day GLUCOSE BLOO D 91010982350 Active KENDALL Juarez Active TRUETRACK BLOOD GLUCOSE W/DEVICE KIT Test twice a day BLOOD GLUCOSE MONITORING SUPPL 39236040210 Active Baltazar Childers MD Activ e HYDROCODONE-ACETAMINOPHEN 7.5-325 MG TABS Take 1 tab every 6-8 hour s PRN HYDROCODONE-ACETAMINOPHEN 85744234357 Active Baltazar Childers MD Active NORTRIPTYLINE HCL 50 MG CAPS 1 every night for neuropathy 4 NORTRIPTYLINE HCL 16575974228 Active Baltazar Childers MD Acti ve GABAPENTIN 300 MG CAPS 1 three times a day GABAPE NTIN 11692580793 Active Baltazar Childers MD Active GABAPENTIN 300 MG CAPS 1 po qd x 2 days, then 1 po BID x 2 d ays, then 1 po TID GABAPENTIN 12218775821 No Longer Active Baltazar silverman MD Active TRAMADOL HCL 50 MG TABS 1 twice a day as needed for pain TRAMADOL HCL 79994458118 Active Baltazar Childers MD Active NAPROXEN 500 MG TABS 1 tablet by mouth twice daily NAPROXEN 46214209574 No Longer Active Baltazar Childers MD Active PROAIR HFA 108 (90 BASE) MCG/ACT AERS 2 puffs four times a d ay as needed ALBUTEROL SULFATE 52434044482 Active KENDALL Juarez Active DEPO-TESTOSTERONE 200 MG/ML OIL as directed RUFINO TOSTERONE CYPIONATE 33036188452 No Longer Active Baltazar Childers MD Active LIPITOR 20 MG TABS Take one by mouth daily in evening ATORVASTATIN CALCIUM 53378167459 No Longer Active Baltazar Childers MD Activ e CRESTOR 10 MG TABS 1 by mouth every day R OSUVASTATIN CALCIUM 66360101073 No Longer Active Baltazar Childers MD Activ e PHENTERMINE HCL 37.5 MG TABS Take one by mouth daily 2 PHENTERMINE HCL 48975561870 No Longer Active Baltazar Childers MD Activ e ROBAXIN-750 750 MG TABS Take one by mouth daily ME THOCARBAMOL 89993971843 Active Baltazar Childers MD Active TIZANIDINE HCL 4 MG TABS 1 daily as needed for muscle spasm 2011 TIZANIDINE HCL 16477679841 No Longer Active Dawna Salazar RN Active [id number] 50-325-40 MG TABS 1 four time s a day as needed for heacache [id number] 85517796946 Active Baltazar Childers MD Active SUMATRIPTAN SUCCINATE 100 MG TABS 1 tablet by mouth at onset of migraine as needed SUMATRIPTAN SUCCINATE 10484729792 Active Baltazar bynum MD Active LORATADINE 10 MG TABS Take one by mouth daily LORATADINE 35143044891 Active Baltazar Childers MD Active OMEPRAZOLE 20 MG CPDR Take one by mouth daily OMEPRAZOLE 27534012716 Active Baltazar Childers MD Active HYDROXYZINE HCL 25 MG TABS Take one by mouth daily HYDROXYZINE HCL 88270516422 Active Baltazar Childers MD Active GLIPIZIDE 10 MG TABS 1 tablet by mouth twice daily GLIPIZIDE 03795791764 Active Baltazar Childers MD Active ALPRAZOLAM 1 MG TABS 1 tablet by mouth daily at bedtime for restles s leg ALPRAZOLAM 57511750550 Active Baltazar Childers MD Active METFORMIN HCL 1000 MG TABS Take one by mouth twice daily METFORMIN HCL 90893249970 Active Baltazar Childers MD Active TIZANIDINE HCL 4 MG TABS 1 daily as needed for muscle spasm 2011 TIZANIDINE HCL 4 MG TABS 563730 TIZANIDINE HCL Inactiv e PHENTERMINE HCL 37.5 MG TABS Take one by mouth daily 2 PHENTERMINE HCL 37.5 MG TABS 768203 PHENTERMINE HCL Inactive CRESTOR 10 MG TABS 1 by mouth every day C RESTOR 10 MG TABS 766664 ROSUVASTATIN CALCIUM Inactive LIPITOR 20 MG TABS Take one by mouth daily in evening LIPITOR 20 MG TABS 149527 ATORVASTATIN CALCIUM Inactive DEPO-TESTOSTERONE 200 MG/ML OIL as directed 8 DEPO-TESTOSTERONE 200 MG/ML OIL 366138 TESTOSTERONE CYPIONATE Inactive NAPROXEN 500 MG TABS 1 tablet by mouth twice daily 201 07/27/22 NAPROXEN 500 MG TABS 784347 NAPROXEN Inactive GABAPENTIN 300 MG CAPS 1 po qd x 2 days, then 1 po BID x 2 d ays, then 1 po TID GABAPENTIN 300 MG CAPS 615183 GABAPENTIN Inact amie ONETOUCH ULTRA BLUE STRP Test twice a day ONETOUCH ULTRA BLUE STRP GLUCOSE BLOOD Inactive NAPROXEN SODIUM 220 MG ORAL TABS 1 three times a day as needed 2 NAPROXEN SODIUM 220 MG ORAL TABS 504582 NAPROXEN SODIUM Inactive TOUJEO SOLOSTAR 300 UNIT/ML SC SOPN 10 units SC daily TOUJEO SOLOSTAR 300 UNIT/ML SC SOPN INSULIN GLARGINE Inac tive SUCRALFATE 1 GM TABS 1 four times a day to coat the stomach 2015 SUCRALFATE 1 GM TABS 418027 SUCRALFATE Inactive Immunizations Vaccine Administration Date Value Standard Floyd cription pneumococcal immunization administered Pneumovax 23 [CVX33] pneumococcal polysaccharide vaccine, 23 valent Seasonal influenza vaccine, injectable, containing preservative, for > 3 years old (Afluria, FluLaval, Fluzone, Fluvirin, Fluarix, Agriflu(>= 18 yo)) Fluzone (>3 yrs.) [[id number]] Influenza, seasonal, inject able Seasonal influenza vaccine, injectable, containing preservative, for > 3 years old (Afluria, FluLaval, Fluzone, Fluvirin, Fluarix, Agriflu(>= 18 yo)) Fluzone (>3 yrs.) [[id number]] Influenza, seasonal, inject able Vital Signs Date [...] C - Chemistry sodium, serum 139 mmol/L 542-789 0527/07/07 potassium, serum 4.5 mmol/L 3.5-5.2 chloride, serum [...] 7.9 % 4.3-6.0 sodium, serum 139 mmol/L 709-435 0565/02/04 potassium, serum 5.4 mmol/L 3.5-5.2 chloride, serum [...] Panel - Chemistry sodium, serum 141 mmol/L 342-136 8955/08/08 potassium, serum 4.9 mmol/L 3.5-5.2 chloride, serum [...] mg/dL Encounters Code Encounter Date Provider Facility CPT-51247 Level 4 Est. Patient 11:34:17 CDT Baltazar Childers MD [facility]-00946 Level 3 Est. Patient 16:40:40 CDT Baltazar Childers MD [facility] CPT-01689 Level 4 Est. Patient 10:41:24 CDT Baltazar Childers MD [facility]-94268 Level 4 Est. Patient 16:01:48 CDT Baltazar Childers MD [facility] CPT-24829 Level 4 Est. Patient 16:54:07 MANAGER FASHION Baltazar Childers MD [facility]-48588 Level 4 Est. Patient 15:42:12 CDT Baltazar Childers MD [facility] CPT-34326 Level 4 Est. Patient 11:29:55 CDT Baltazar Childers MD [facility] CPT-51165 Level 4 Est. Patient 14:15:19 CDT Baltazar Childers MD [facility] CPT-72018 Level 4 Est. Patient 12:20:13 CDT Baltazra Childers MD [facility] CPT-82038 Level 4 Est. Patient 14:52:45 MANAGER FASHION Baltazar Childers MD [facility]-85158 Level 4 Est. Patient 14:18:34 MANAGER FASHION Baltazar Childers MD [facility] CPT-53181 Level 4 Est. Patient 15:18:29 CDT Baltazar Childers MD [facility] CPT-76958 Level 3 Est. Patient 12:45:34 CDT Baltazar Childers MD [facility] CPT-00812 Level 3 Est. Patient 10:10:11 CDT Baltazar Childers MD [facility]-07844 Level 3 Est. Patient 14:07:50 CDT Baltazar Childers MD [facility] CPT-73647 Level 4 Est. Patient 12:26:10 MANAGER FASHION Baltazar Childers MD [facility] CPT-42577 Level 4 Est. Patient 14:45:38 CDT Baltazar Childers MD [facility] CPT-99696 Level 4 New Patient 12:30:48 CDT Baltazar hinton MD [facility] Procedures Code Procedure Name Date Entry Date Standard Desc ription CPT-72025 Lipid - LAB USE ONLY 17:39:15 MANAGER FASHION 9 CPT-44596 HGBA1C - LAB USE ONLY 17:39:15 MANAGER FASHION CPT-72411 CMP - LAB USE ONLY 17:39:14 MANAGER FASHION CPT-17234 Venipuncture Draw Fee 17:39:14 MANAGER FASHION CPT-11282 First Vx - Ix admin via ID I M or jet injects without counseling by physician 16:55:17 MANAGER FASHION CPT-79925 Fluzone Quadrivalent Intramuscular Suspe nsion 0.5 ML 16:55:17 MANAGER FASHION CPT-27873 Renal Panel - LAB USE ONLY 17:39:20 CDT 201 10/31/07 CPT-76547 CBC - LAB USE ONLY 17:39:20 CDT CPT-68997 Venipuncture Draw Fee 17:39:20 CDT CPT-49207 Venipuncture Draw Fee 14:33:30 CDT CPT-00059 Renal Panel - LAB USE ONLY 14:33:30 CDT 201 10/31/07 CPT-54078 CBC - LAB USE ONLY 14:33:29 CDT CPT-61665 Venipuncture Draw Fee 14:50:21 MANAGER FASHION CPT-91746 Immunization Single Admin 17:35:35 CDT 2014 CPT-31255 Fluzone Quadrivalent preservative free ( >=3yrs.) 17:35:35 CDT CPT-21889 Venipuncture Draw Fee 12:10:27 MANAGER FASHION CPT-93694 Fluzone Quadrivalent Intramuscular Suspe nsion 0.5 ML 10:49:13 CDT CPT-58794 First Vx Component - Ix admi n via ID IM or jet inj without physician counseling 15:17:19 MANAGER FASHION CPT-67701 Pneumovax 23 15:17:19 MANAGER FASHION CPT-06868 Pneumovax 14:52:45 MANAGER FASHION CPT-70888 Venipuncture Draw Fee 14:06:30 MANAGER FASHION CPT-000 Give Appropriate Flu Vaccine 14:18:34 MANAGER FASHION 2 CPT-32327 Administration single or combination vac cine inc oral 14:46:00 MANAGER FASHION CPT-09204 Influenza split virus > age 3 14:46:00 MANAGER FASHION CPT-OV Office Visit 19:13:16 CDT CPT-06632 Zostavax 18:41:56 CDT CPT-17610 Administration single or combination vac cine inc oral 12:56:39 CDT CPT-90988 Zoster Vaccine (Zostavax) 12:56:39 CDT 2012 CPT-74210 Venipuncture Draw Fee 10:58:57 CDT CPT-18124 Sono pelvis non OB uterus ovaries cervix 17:45:04 CDT CPT-60637 Sono retroperitoneal complete kidneys an d bladder 17:14:36 CDT CPT-OV Office Visit 14:59:38 MANAGER FASHION CPT-J1070 Depo Testosterone 100 mg 14:50:13 CDT 03/05 CPT-07961 Abx/Therapy Injection 14:50:13 CDT CPT-96741 Administration single or combination vac cine inc oral 14:34:43 CDT CPT-98072 Influenza split virus > age 3 14:34:43 CDT CPT-J1070 Depo Testosterone 100 mg 17:37:13 CDT 01/11 CPT-17805 Abx/Therapy Injection 17:37:13 CDT CPT-12288 Venipuncture Draw Fee 16:30:13 CDT CPT-48917 Venipuncture Draw Fee 16:29:43 CDT CPT-J1070 Depo Testosterone 100 mg 14:45:38 CDT 01/11
--- OUTSIDE RECORDS SUMMARY | 2019-10-27 13:12 | XMS REPORT | Clinical Summary ---
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 [employer] Benign neoplasm of colon PERIPHERAL NEUROPATHY [...] ronary atherosclerosis of unspecified type of vessel, pilot station or graft OTH NONSPC ABN FINDNG RAD&OTH [...] a day to coat the stomach SUCRALFATE 31060285165 Active Baltazar Childers MD Active PEN NEEDLES 31G X 6 MM MISC use 1 daily INSULIN PEN NEEDLE 27666960542 Active Martita Herbert RMA Active TOUJEO SOLOSTAR 300 UNIT/ML SC SOPN 10 units SC daily INSULIN GLARGINE 93983250741 No Longer Active Martita Herbert RMA Active LANTUS SOLOSTAR 100 UNIT/ML SC SOPN 10 units SC daily INSULIN GLARGINE 93143911849 Active KENDALL Juarez Active NAPROXEN SODIUM 220 MG ORAL TABS 1 three times a day as needed 2 NAPROXEN SODIUM 41661568638 No Longer Active Baltazar Childers MD Active ATORVASTATIN CALCIUM 20 MG ORAL TABS Take 1 tab daily ATORVASTATIN CALCIUM 34401271218 Active Baltazar Childers MD Active FUROSEMIDE 40 MG TABS Take one by mouth daily FUROSEMIDE 59659817947 Active Baltazar Childers MD Active LISINOPRIL 20 MG TABS Take one by mouth daily at bedtime LISINOPRIL 44339663581 Active Baltazar Childers MD Active ONETOUCH ULTRA BLUE STRP Test twice a day GLUCO SE BLOOD 04552812956 No Longer Active Baltazar Childers MD Active TRUEPLUS LANCETS 33G MISC Test twice a day LANCET S 52524608060 Active KENDALL Juarez Active TRUEDRAW LANCING DEVICE MISC Test twice a day L ANCET DEVICES 26557587077 Active Baltazar Childers MD Active TRUETRACK TEST STRP Test twice a day GLUCOSE BLOO D 38369966725 Active KENDALL Juarez Active TRUETRACK BLOOD GLUCOSE W/DEVICE KIT Test twice a day BLOOD GLUCOSE MONITORING SUPPL 73003897481 Active Baltazar Childers MD Activ e HYDROCODONE-ACETAMINOPHEN 7.5-325 MG TABS Take 1 tab every 6-8 hour s PRN HYDROCODONE-ACETAMINOPHEN 71751541623 Active Baltazar Childers MD Active NORTRIPTYLINE HCL 50 MG CAPS 1 every night for neuropathy 4 NORTRIPTYLINE HCL 06853785598 Active KENDALL Juarez Acti ve GABAPENTIN 300 MG CAPS 1 three times a day GABAPE NTIN 86429085656 Active Baltazar Childers MD Active GABAPENTIN 300 MG CAPS 1 po qd x 2 days, then 1 po BID x 2 d ays, then 1 po TID GABAPENTIN 71341364491 No Longer Active Baltazar silverman MD Active TRAMADOL HCL 50 MG TABS 1 twice a day as needed for pain TRAMADOL HCL 24574095806 Active Baltazar Childers MD Active NAPROXEN 500 MG TABS 1 tablet by mouth twice daily NAPROXEN 03747091501 No Longer Active Baltazar Childers MD Active PROAIR HFA 108 (90 BASE) MCG/ACT AERS 2 puffs four times a d ay as needed ALBUTEROL SULFATE 20424569022 Active Baltazar Childers MD Active DEPO-TESTOSTERONE 200 MG/ML OIL as directed RUFINO TOSTERONE CYPIONATE 22506872426 No Longer Active Baltazar Childers MD Active LIPITOR 20 MG TABS Take one by mouth daily in evening ATORVASTATIN CALCIUM 88305434184 No Longer Active Baltazar Childers MD Activ e CRESTOR 10 MG TABS 1 by mouth every day R OSUVASTATIN CALCIUM 03723420009 No Longer Active Baltazar Childers MD Activ e PHENTERMINE HCL 37.5 MG TABS Take one by mouth daily 2 PHENTERMINE HCL 29512010259 No Longer Active Baltazar Childers MD Activ e ROBAXIN-750 750 MG TABS Take one by mouth daily ME THOCARBAMOL 50702833169 Active Baltazar Childers MD Active TIZANIDINE HCL 4 MG TABS 1 daily as needed for muscle spasm 2011 TIZANIDINE HCL 06515314852 No Longer Active Dawna Salazar RN Active [id number] 50-325-40 MG TABS 1 four time s a day as needed for heacache [id number] 26483174097 Active Baltazar Childers MD Active SUMATRIPTAN SUCCINATE 100 MG TABS 1 tablet by mouth at onset of migraine as needed SUMATRIPTAN SUCCINATE 03583042581 Active Bella STEPHEN RN Active LORATADINE 10 MG TABS Take one by mouth daily LORATADINE 83391526169 Active Baltazar Childers MD Active OMEPRAZOLE 20 MG CPDR Take one by mouth daily OMEPRAZOLE 35651727431 Active Crystal Lyons Active HYDROXYZINE HCL 25 MG TABS Take one by mouth daily HYDROXYZINE HCL 30761188368 Active Baltazar Childers MD Active GLIPIZIDE 10 MG TABS 1 tablet by mouth twice daily GLIPIZIDE 62453740817 Active Baltazar Childers MD Active ALPRAZOLAM 1 MG TABS 1 tablet by mouth daily at bedtime for restles s leg ALPRAZOLAM 62241917846 Active Baltazar Childers MD Active METFORMIN HCL 1000 MG TABS Take one by mouth twice daily METFORMIN HCL 64909415833 Active Baltazar Childers MD Active TIZANIDINE HCL 4 MG TABS 1 daily as needed for muscle spasm 2011 TIZANIDINE HCL 4 MG TABS 172059 TIZANIDINE HCL Inactiv e PHENTERMINE HCL 37.5 MG TABS Take one by mouth daily 2 PHENTERMINE HCL 37.5 MG TABS 624152 PHENTERMINE HCL Inactive CRESTOR 10 MG TABS 1 by mouth every day C RESTOR 10 MG TABS 825176 ROSUVASTATIN CALCIUM Inactive LIPITOR 20 MG TABS Take one by mouth daily in evening LIPITOR 20 MG TABS 236543 ATORVASTATIN CALCIUM Inactive DEPO-TESTOSTERONE 200 MG/ML OIL as directed 8 DEPO-TESTOSTERONE 200 MG/ML OIL 341481 TESTOSTERONE CYPIONATE Inactive NAPROXEN 500 MG TABS 1 tablet by mouth twice daily 201 07/27/22 NAPROXEN 500 MG TABS 751445 NAPROXEN Inactive GABAPENTIN 300 MG CAPS 1 po qd x 2 days, then 1 po BID x 2 d ays, then 1 po TID GABAPENTIN 300 MG CAPS 962077 GABAPENTIN Inact amie ONETOUCH ULTRA BLUE STRP Test twice a day ONETOUCH ULTRA BLUE STRP GLUCOSE BLOOD Inactive NAPROXEN SODIUM 220 MG ORAL TABS 1 three times a day as needed 2 NAPROXEN SODIUM 220 MG ORAL TABS 137406 NAPROXEN SODIUM Inactive TOUJEO SOLOSTAR 300 UNIT/ML [...] Fluarix, Agriflu(>= 18 yo)) Fluzone (>3 yrs.) [IAS095] Influenza, seasonal, inject able Seasonal influenza vaccine, injectable, containing preservative, for > 3 years old (Afluria, FluLaval, Fluzone, Fluvirin, Fluarix, Agriflu(>= 18 yo)) Fluzone (>3 yrs.) [[id number]] Influenza, seasonal, inject able Vital Signs Date [...] C - Chemistry sodium, serum 139 mmol/L 346-057 8465/07/07 potassium, serum 4.5 mmol/L 3.5-5.2 chloride, serum [...] 7.9 % 4.3-6.0 sodium, serum 139 mmol/L 467-940 4176/02/04 potassium, serum 5.4 mmol/L 3.5-5.2 chloride, serum [...] Panel - Chemistry sodium, serum 138 mmol/L 423-430 3179/11/23 carbon dioxide, venous blood 32.4 mmol/L 21.0-32 .0 potassium, serum 5.7 mmol/L 3.5-5.2 chloride, serum 98 mmol/L 98-107 blood glucose 136 mg/dL 65-110 urea nitrogen, blood 18 mg/dL 7-18 creatinine, serum 1.71 mg/dL 0.55-1.30 alanine aminotransferase (SGPT), serum 71 U/L 12-78 aspartate aminotransferase (SGOT), serum 34 U/L 15-37 calcium, serum 9.4 mg/dL 8.5-10.1 bilirubin, serum, total 0.40 mg/dL 0.00-1.00 cholesterol, serum 405 mg/dL 791-859 6527/11/23 triglyceride, serum, fasting 709 mg/dL 30-200 HDL [...] Panel - Chemistry sodium, serum 141 mmol/L 885-532 1912/08/08 potassium, serum 4.9 mmol/L 3.5-5.2 chloride, serum [...] mg/dL Encounters Code Encounter Date Provider Facility CPT-84333 Level 4 Est. Patient 11:34:17 CDT Baltazar Childers MD [facility] CPT-46982 Level 3 Est. Patient 16:40:40 CDT Baltazar Childers MD [facility] CPT-24942 Level 4 Est. Patient 10:41:24 CDT Baltazar Childers MD [facility] CPT-14631 Level 4 Est. Patient 16:01:48 CDT Baltazar Childers MD [facility] CPT-96660 Level 4 Est. Patient 16:54:07 PAINTER HAND Baltazar Childers MD [facility] CPT-53119 Level 4 Est. Patient 15:42:12 CDT Baltazar Childers MD [facility] CPT-07130 Level 4 Est. Patient 11:29:55 CDT Baltazar Childers MD [facility] CPT-92816 Level 4 Est. Patient 14:15:19 CDT Baltazar Childers MD [facility] CPT-93616 Level 4 Est. Patient 12:20:13 CDT Baltazar Childers MD [facility] CPT-65161 Level 4 Est. Patient 14:52:45 PAINTER HAND Baltazar Childers MD [facility] CPT-46512 Level 4 Est. Patient 14:18:34 PAINTER HAND Baltazar Childers MD [facility] CPT-90165 Level 4 Est. Patient 15:18:29 CDT Baltazar Childers MD [facility] CPT-15544 Level 3 Est. Patient 12:45:34 CDT Baltazar Childers MD [facility] CPT-25235 Level 3 Est. Patient 10:10:11 CDT Baltazar Childers MD [facility] CPT-07702 Level 3 Est. Patient 14:07:50 CDT Baltazar Childers MD [facility] CPT-23646 Level 4 Est. Patient 12:26:10 PAINTER HAND Baltazar Childers MD [facility] CPT-41866 Level 4 Est. Patient 14:45:38 CDT Baltazar Childers MD [facility] CPT-23577 Level 4 New Patient 12:30:48 CDT Baltazar hinton MD [facility] Procedures Code Procedure Name Date Entry Date Standard Desc ription CPT-58654 Renal Panel - LAB USE ONLY 17:39:20 CDT 201 10/31/07 CPT-86800 CBC - LAB USE ONLY 17:39:20 CDT CPT-66487 Venipuncture Draw Fee 17:39:20 CDT CPT-71056 Venipuncture Draw Fee 14:33:30 CDT CPT-72653 Renal Panel - LAB USE ONLY 14:33:30 CDT 201 10/31/07 CPT-82285 CBC - LAB USE ONLY 14:33:29 CDT CPT-66595 Venipuncture Draw Fee 14:50:21 PAINTER HAND CPT-48650 Immunization Single Admin 17:35:35 CDT 2014 CPT-98847 Fluzone Quadrivalent preservative free ( >=3yrs.) 17:35:35 CDT CPT-39982 Venipuncture Draw Fee 12:10:27 PAINTER HAND CPT-08521 Fluzone Quadrivalent Intramuscular Suspe nsion 0.5 ML 10:49:13 CDT CPT-23659 First Vx Component - Ix admi n via ID IM or jet inj without physician counseling 15:17:19 PAINTER HAND CPT-61717 Pneumovax 15:17:19 PAINTER HAND CPT-54974 Pneumovax 14:52:45 PAINTER HAND CPT-09238 Venipuncture Draw Fee 14:06:30 PAINTER HAND CPT-000 Give Appropriate Flu Vaccine 14:18:34 PAINTER HAND 2 CPT-87333 Administration single or combination vac cine inc oral 14:46:00 PAINTER HAND CPT-15123 Influenza split virus > age 3 14:46:00 PAINTER HAND CPT-OV Office Visit 19:13:16 CDT CPT-64884 Zostavax 18:41:56 CDT CPT-41488 Administration single or combination vac cine inc oral 12:56:39 CDT CPT-52744 Zoster Vaccine (Zostavax) 12:56:39 CDT 2012 CPT-43218 Venipuncture Draw Fee 10:58:57 CDT CPT-01783 Sono pelvis non OB uterus ovaries cervix 17:45:04 CDT CPT-32428 Sono retroperitoneal complete kidneys an d bladder 17:14:36 CDT CPT-OV Office Visit 14:59:38 PAINTER HAND CPT-J1070 Depo Testosterone 100 mg 14:50:13 CDT 03/05 CPT-33235 Abx/Therapy Injection 14:50:13 CDT CPT-89137 Administration single or combination vac cine inc oral 14:34:43 CDT CPT-11520 Influenza split virus > age 3 14:34:43 CDT CPT-J1070 Depo Testosterone 100 mg 17:37:13 CDT 01/11 CPT-56804 Abx/Therapy Injection 17:37:13 CDT CPT-30761 Venipuncture Draw Fee 16:30:13 CDT CPT-35324 Venipuncture Draw Fee 16:29:43 CDT CPT-J1070 Depo Testosterone 100 mg 14:45:38 CDT 01/11
--- OUTSIDE RECORDS SUMMARY | 2019-10-27 13:12 | XMS REPORT | Clinical Summary ---
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 Benign neoplasm of colon PERIPHERAL NEUROPATHY [...] a day as needed 2 NAPROXEN SODIUM 89940291574 No Longer Active Baltazar Childers MD Active ATORVASTATIN CALCIUM 20 MG ORAL TABS Take 1 tab daily ATORVASTATIN CALCIUM 12898097678 Active KENDALL Juarez Active FUROSEMIDE 40 MG TABS Take one by mouth daily FUROSEMIDE 29019280227 Active Baltazar Childers MD Active LISINOPRIL 20 MG TABS Take one by mouth daily at bedtime LISINOPRIL 25266032088 Active KENDALL Juarez Active ONETOUCH ULTRA BLUE STRP Test twice a day GLUCO SE BLOOD 75753504840 No Longer Active Baltazar Childers MD Active TRUEPLUS LANCETS 33G MISC Test twice a day LANCET S 09717801232 Active KENDALL Juarez Active TRUEDRAW LANCING DEVICE MISC Test twice a day L ANCET DEVICES 84455211863 Active Baltazar Childers MD Active TRUETRACK TEST STRP Test twice a day GLUCOSE BLOO D 41035666505 Active Baltazar Childers MD Active TRUETRACK BLOOD GLUCOSE W/DEVICE KIT Test twice a day BLOOD GLUCOSE MONITORING SUPPL 12751943472 Active Baltazar Childers MD Activ e HYDROCODONE-ACETAMINOPHEN 7.5-325 MG TABS Take 1 tab every 6-8 hour s PRN HYDROCODONE-ACETAMINOPHEN 66122163354 Active Baltazar Childers MD Active NORTRIPTYLINE HCL 50 MG CAPS 1 every night for neuropathy 4 NORTRIPTYLINE HCL 06337169536 Active Baltazar Childers MD Acti ve GABAPENTIN 300 MG CAPS 1 three times a day GABAPE NTIN 48550242595 Active KENDALL Juarez Active GABAPENTIN 300 MG CAPS 1 po qd x 2 days, then 1 po BID x 2 d ays, then 1 po TID GABAPENTIN 21781291771 No Longer Active Baltazar silverman MD Active TRAMADOL HCL 50 MG TABS 1 twice a day as needed for pain TRAMADOL HCL 78094116029 Active Baltazar Childers MD Active NAPROXEN 500 MG TABS 1 tablet by mouth twice daily NAPROXEN 44198454949 No Longer Active Baltazar Childers MD Active PROAIR HFA 108 (90 BASE) MCG/ACT AERS 2 puffs four times a d ay as needed ALBUTEROL SULFATE 13631202811 Active KENDALL Juarez Active DEPO-TESTOSTERONE 200 MG/ML OIL as directed RUFINO TOSTERONE CYPIONATE 42313235808 No Longer Active Baltazar Childers MD Active LIPITOR 20 MG TABS Take one by mouth daily in evening ATORVASTATIN CALCIUM 62772895334 No Longer Active Baltazar Chliders MD Activ e CRESTOR 10 MG TABS 1 by mouth every day R OSUVASTATIN CALCIUM 44172202028 No Longer Active Baltazar Childers MD Activ e PHENTERMINE HCL 37.5 MG TABS Take one by mouth daily 2 PHENTERMINE HCL 33035018266 No Longer Active Baltazar Childers MD Activ e ROBAXIN-750 750 MG TABS Take one by mouth daily ME THOCARBAMOL 00202153602 Active Baltazar Childers MD Active TIZANIDINE HCL 4 MG TABS 1 daily as needed for muscle spasm 2011 TIZANIDINE HCL 26348052693 No Longer Active Dawna Salazar RN Active [id number] 50-325-40 MG TABS 1 four time s a day as needed for heacache [id number] 36282847018 Active KENDALL Juarez Active SUMATRIPTAN SUCCINATE 100 MG TABS 1 tablet by mouth at onset of migraine as needed SUMATRIPTAN SUCCINATE 11361940847 Active KENDALL Juarez Active LORATADINE 10 MG TABS Take one by mouth daily LORATADINE 50311665564 Active Baltazar Childers MD Active OMEPRAZOLE 20 MG CPDR Take one by mouth daily OMEPRAZOLE 93524578653 Active Baltazar Childers MD Active HYDROXYZINE HCL 25 MG TABS Take one by mouth daily HYDROXYZINE HCL 30586932668 Active Baltazar Childers MD Active GLIPIZIDE 10 MG TABS 1 tablet by mouth twice daily GLIPIZIDE 06901852685 Active KENDALL Juarez Active ALPRAZOLAM 1 MG TABS 1 tablet by mouth daily at bedtime for restles s leg ALPRAZOLAM 66282376167 Active Baltazar Childers MD Active METFORMIN HCL 1000 MG TABS Take one by mouth twice daily METFORMIN HCL 23859891852 Active Baltazar Childers MD Active TIZANIDINE HCL 4 MG TABS 1 daily as needed for muscle spasm 2011 TIZANIDINE HCL 4 MG TABS 129836 TIZANIDINE HCL Inactiv e PHENTERMINE HCL 37.5 MG TABS Take one by mouth daily 2 PHENTERMINE HCL 37.5 MG TABS 817966 PHENTERMINE HCL Inactive CRESTOR 10 MG TABS 1 by mouth every day C RESTOR 10 MG TABS ROSUVASTATIN CALCIUM Inactive LIPITOR 20 MG TABS Take one by mouth daily in evening LIPITOR 20 MG TABS 403176 ATORVASTATIN CALCIUM Inactive DEPO-TESTOSTERONE 200 MG/ML OIL as directed 8 DEPO-TESTOSTERONE 200 MG/ML OIL 545110 TESTOSTERONE CYPIONATE Inactive NAPROXEN 500 MG TABS 1 tablet by mouth twice daily 201 07/27/22 NAPROXEN 500 MG TABS 384008 NAPROXEN Inactive GABAPENTIN 300 MG CAPS 1 po qd x 2 days, then 1 po BID x 2 d ays, then 1 po TID GABAPENTIN 300 MG CAPS 932316 GABAPENTIN Inact amie ONETOUCH ULTRA BLUE STRP Test twice a day ONETOUCH ULTRA BLUE STRP GLUCOSE BLOOD Inactive NAPROXEN SODIUM 220 MG ORAL TABS 1 three times a day as needed 2 NAPROXEN SODIUM 220 MG ORAL TABS 687933 NAPROXEN SODIUM Inactive Immunizations Vaccine Administration Date Value Standard Floyd cription pneumococcal immunization administered Pneumovax 23 [CVX33] pneumococcal polysaccharide vaccine, 23 valent Seasonal influenza vaccine, injectable, containing preservative, for > 3 years old (Afluria, FluLaval, Fluzone, Fluvirin, Fluarix, Agriflu(>= 18 yo)) Fluzone (>3 yrs.) [[id number]] Influenza, seasonal, inject able Seasonal influenza vaccine, injectable, containing preservative, for > 3 years old (Afluria, FluLaval, Fluzone, Fluvirin, Fluarix, Agriflu(>= 18 yo)) Fluzone (>3 yrs.) [[id number]] Influenza, seasonal, inject able Vital Signs Date [...] 7.9 % 4.3-6.0 sodium, serum 139 mmol/L 452-256 7391/02/04 potassium, serum 5.4 mmol/L 3.5-5.2 chloride, serum [...] Panel - Chemistry sodium, serum 138 mmol/L 528-553 4813/11/23 carbon dioxide, venous blood 32.4 mmol/L 21.0-32 .0 potassium, serum 5.7 mmol/L 3.5-5.2 chloride, serum 98 mmol/L 98-107 blood glucose 136 mg/dL 65-110 urea nitrogen, blood 18 mg/dL 7-18 creatinine, serum 1.71 mg/dL 0.55-1.30 alanine aminotransferase (SGPT), serum 71 U/L 12-78 aspartate aminotransferase (SGOT), serum 34 U/L 15-37 calcium, serum 9.4 mg/dL 8.5-10.1 bilirubin, serum, total 0.40 mg/dL 0.00-1.00 cholesterol, serum 405 mg/dL 978-856 3123/11/23 triglyceride, serum, fasting 709 mg/dL 30-200 HDL [...] mg/dL Encounters Code Encounter Date Provider Facility CPT-06987 Level 4 Est. Patient 16:01:48 CDT Baltazar Childers MD [facility] CPT-34581 Level 4 Est. Patient 16:54:07 WOOD SCIENCE PROFESSOR Baltazar Childers MD [facility] CPT-18162 Level 4 Est. Patient 15:42:12 CDT Baltazar Childers MD [facility] CPT-54837 Level 4 Est. Patient 11:29:55 CDT Baltazar Childers MD [facility] CPT-28145 Level 4 Est. Patient 14:15:19 CDT Baltazar Childers MD [facility] CPT-32882 Level 4 Est. Patient 12:20:13 CDT Baltazar Childers MD [facility] CPT-46319 Level 4 Est. Patient 14:52:45 WOOD SCIENCE PROFESSOR Baltazar Childers MD [facility] CPT-65743 Level 4 Est. Patient 14:18:34 WOOD SCIENCE PROFESSOR Baltazar Childers MD [facility] CPT-15013 Level 4 Est. Patient 15:18:29 CDT Baltazar Childers MD [facility] CPT-83160 Level 3 Est. Patient 12:45:34 CDT Baltazar Childers MD [facility] CPT-52363 Level 3 Est. Patient 10:10:11 CDT Baltazar Childers MD [facility] CPT-62713 Level 3 Est. Patient 14:07:50 CDT Baltazar Childers MD [facility] CPT-26785 Level 4 Est. Patient 12:26:10 WOOD SCIENCE PROFESSOR Baltazar Childers MD [facility] CPT-79284 Level 4 Est. Patient 14:45:38 CDT Baltazar Childers MD [facility] CPT-58328 Level 4 New Patient 12:30:48 CDT Baltazar hinton MD [facility] Procedures Code Procedure Name Date Entry Date Standard Desc ription CPT-93374 Venipuncture Draw Fee 14:50:21 WOOD SCIENCE PROFESSOR CPT-78879 Immunization Single Admin 17:35:35 CDT 2014 CPT-75159 Fluzone Quadrivalent preservative free ( >=3yrs.) 17:35:35 CDT CPT-93141 Venipuncture Draw Fee 12:10:27 WOOD SCIENCE PROFESSOR CPT-13523 Fluzone Quadrivalent Intramuscular Suspe nsion 0.5 ML 10:49:13 CDT CPT-18449 First Vx Component - Ix admi n via ID IM or jet inj without physician counseling 15:17:19 WOOD SCIENCE PROFESSOR CPT-33512 Pneumovax 15:17:19 WOOD SCIENCE PROFESSOR CPT-20178 Pneumovax 14:52:45 WOOD SCIENCE PROFESSOR CPT-21819 Venipuncture Draw Fee 14:06:30 WOOD SCIENCE PROFESSOR CPT-000 Give Appropriate Flu Vaccine 14:18:34 WOOD SCIENCE PROFESSOR 2 CPT-28230 Administration single or combination vac cine inc oral 14:46:00 WOOD SCIENCE PROFESSOR CPT-37179 Influenza split virus > age 3 14:46:00 WOOD SCIENCE PROFESSOR CPT-OV Office Visit 19:13:16 CDT CPT-42017 Zostavax 18:41:56 CDT CPT-44544 Administration single or combination vac cine inc oral 12:56:39 CDT CPT-42486 Zoster Vaccine (Zostavax) 12:56:39 CDT 2012 CPT-14333 Venipuncture Draw Fee 10:58:57 CDT CPT-72441 Sono pelvis non OB uterus ovaries cervix 17:45:04 CDT CPT-84960 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
--- OUTSIDE RECORDS SUMMARY | 2019-10-27 13:12 | XMS REPORT | Clinical Summary ---
Author Author Abhishek, Elba [facility] Address Unknown [...] Benign essential hypertension EDEMA 782.3 Active Baltazar Cihlders MD Edema ALLERGIC RHINITIS 477.9 Active Baltazar [...] neoplasm of colon PERIPHERAL NEUROPATHY 356.9 Active Baltazra Nickerson MD Unspecified idiopathic peripheral neuropathy PERSONAL [...] y atherosclerosis of unspecified type of vessel, afognak or graft OTH NONSPC ABN FINDNG RAD&OTH [...] MISC Test twice a day LANCET S 04930325027 Active Baltazar Childers MD Active TRUEDRAW LANCING DEVICE MISC Test twice a day L ANCET DEVICES 90426697626 Active Baltazar Childers MD Active TRUETRACK TEST STRP Test twice a day GLUCOSE BLOO D 17499816205 Active Baltazar Childers MD Active TRUETRACK BLOOD GLUCOSE W/DEVICE KIT Test twice a day BLOOD GLUCOSE MONITORING SUPPL 50420132509 Active Bella Suarez APRN Active HYDROCODONE-ACETAMINOPHEN 7.5-325 MG TABS Take 1 tab every 6-8 hour s PRN HYDROCODONE-ACETAMINOPHEN 25700477384 Active Baltazar Childers MD Active NORTRIPTYLINE HCL 50 MG CAPS 1 every night for neuropathy 4 NORTRIPTYLINE HCL 39636561252 Active Bella Suarez APRN Active GABAPENTIN 300 MG CAPS 1 three times a day GABAPE NTIN 23133208418 Active Baltazar Childers MD Active GABAPENTIN 300 MG CAPS 1 po qd x 2 days, then 1 po BID x 2 d ays, then 1 po TID GABAPENTIN 12957297104 No Longer Active Baltazar silverman MD Active TRAMADOL HCL 50 MG TABS 1 twice a day as needed for pain TRAMADOL HCL 94786453393 Active Baltazar Childers MD Active NAPROXEN 500 MG TABS 1 tablet by mouth twice daily NAPROXEN 85353319972 No Longer Active Baltazar Childers MD Active PROAIR HFA 108 (90 BASE) MCG/ACT AERS 2 puffs four times a d ay as needed ALBUTEROL SULFATE 33094657795 Active Baltazar Childers MD Active DEPO-TESTOSTERONE 200 MG/ML OIL as directed RUFINO TOSTERONE CYPIONATE 20463375375 No Longer Active Baltazar Childers MD Active LIPITOR 20 MG TABS Take one by mouth daily in evening ATORVASTATIN CALCIUM 27022159274 No Longer Active Baltazar Childers MD Activ e CRESTOR 10 MG TABS 1 by mouth every day R OSUVASTATIN CALCIUM 28008218549 No Longer Active Baltazar Childers MD Activ e PHENTERMINE HCL 37.5 MG TABS Take one by mouth daily 2 PHENTERMINE HCL 52304773610 No Longer Active Baltazar Childers MD Activ e ROBAXIN-750 750 MG TABS Take one by mouth daily ME THOCARBAMOL 77868905854 Active Baltazar Childers MD Active TIZANIDINE HCL 4 MG TABS 1 daily as needed for muscle spasm 2011 TIZANIDINE HCL 25981124802 No Longer Active Dawna Salazar RN Active VigoUCH ULTRA BLUE STRP Test twice a day GLUCO SE BLOOD 04896910588 Active Baltazar Childers MD Active [id number] 50-325-40 MG TABS 1 four time s a day as needed for heacache [id number] 89638976139 Active Baltazar Childers MD Active SUMATRIPTAN SUCCINATE 100 MG TABS 1 tablet by mouth at onset of migraine as needed SUMATRIPTAN SUCCINATE 19731981732 Active Baltazar barron MD Active LORATADINE 10 MG TABS Take one by mouth daily LORATADINE 73130061481 Active Baltazar Childers MD Active FUROSEMIDE 40 MG TABS Take one by mouth daily FUROSEMIDE 52801298909 Active Baltazar Childers MD Active LISINOPRIL 20 MG TABS Take one by mouth daily at bedtime LISINOPRIL 38985715474 Active Bella Suarez APRN Active OMEPRAZOLE 20 MG CPDR Take one by mouth daily OMEPRAZOLE 10100197886 Active Baltazar Childers MD Active HYDROXYZINE HCL 25 MG TABS Take one by mouth daily HYDROXYZINE HCL 36433958656 Active Baltazar Childers MD Active GLIPIZIDE 10 MG TABS 1 tablet by mouth twice daily GLIPIZIDE 21780016056 Active Bella Suarez APRN Active ALPRAZOLAM 1 MG TABS 1 tablet by mouth daily at bedtime for restles s leg ALPRAZOLAM 12063549166 Active Baltazar Childers MD Active METFORMIN HCL 1000 MG TABS Take one by mouth twice daily METFORMIN HCL 46394614194 Active Bella Suarez 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 TIZANIDINE HCL 4 MG TABS 1 daily as needed for muscle spasm 2011 TIZANIDINE HCL 4 MG TABS 062549 TIZANIDINE HCL Inactiv e PHENTERMINE HCL 37.5 MG TABS Take one by mouth daily 2 PHENTERMINE HCL 37.5 MG TABS 774527 PHENTERMINE HCL Inactive CRESTOR 10 MG TABS 1 by mouth every day C RESTOR 10 MG TABS ROSUVASTATIN CALCIUM Inactive LIPITOR 20 MG TABS Take one by mouth daily in evening LIPITOR 20 MG TABS 480817 ATORVASTATIN CALCIUM Inactive DEPO-TESTOSTERONE 200 MG/ML OIL as directed 8 DEPO-TESTOSTERONE 200 MG/ML OIL 293217 TESTOSTERONE CYPIONATE Inactive NAPROXEN 500 MG TABS 1 tablet by mouth twice daily 201 07/27/22 NAPROXEN 500 MG TABS 772723 NAPROXEN Inactive GABAPENTIN 300 MG CAPS 1 po qd x 2 days, then 1 po BID x 2 d ays, then 1 po TID GABAPENTIN 300 MG CAPS 941321 GABAPENTIN Inact amie Immunizations Vaccine Administration Date Value Standard Floyd cription pneumococcal immunization administered Pneumovax 23 [CVX33] pneumococcal polysaccharide vaccine, 23 valent Seasonal influenza vaccine, injectable, containing preservative, for > 3 years old (Afluria, FluLaval, Fluzone, Fluvirin, Fluarix, Agriflu(>= 18 yo)) Fluzone (>3 yrs.) [QEC852] Influenza, seasonal, inject able Seasonal influenza vaccine, injectable, containing preservative, for > 3 years old (Afluria, FluLaval, Fluzone, Fluvirin, Fluarix, Agriflu(>= 18 yo)) Fluzone (>3 yrs.) [TSA328] Influenza, seasonal, inject able Vital Signs Date [...] Panel - Chemistry sodium, serum 139 mmol/L 992-112 0726/01/20 potassium, serum 5.3 mmol/L 3.5-5.2 chloride, serum [...] mg/g mg/g{creat} 0-29 cholesterol, serum 319 mg/dL 887-479 8011/08/21 triglyceride, serum, fasting 546 mg/dL 30-200 HDL cholesterol, serum 39 mg/dL 32-96 LDL cholesterol, serum 167.00 mg/dL 5.00-130.00 hemoglobin A1C, blood, as % of total hemoglobin 7.7 % 4.3-6.0 sodium, serum 138 mmol/L 890-290 9387/08/21 potassium, serum 4.3 mmol/L 3.5-5.2 chloride, serum [...] 0-19 Encounters Code Encounter Date Provider Facility CPT-27458 Level 4 Est. Patient 14:15:19 CDT Baltazar Childers MD [facility] CPT-03507 Level 4 Est. Patient 12:20:13 CDT Baltazar Childers MD [facility] CPT-60012 Level 4 Est. Patient 14:52:45 BUTTON SEWER HAND Baltazar Childers MD [facility] CPT-54324 Level 4 Est. Patient 14:18:34 BUTTON SE[employer] HAND Baltazar Childers MD [facility] CPT-81737 Level 4 Est. Patient 15:18:29 CDT Baltazar Childers MD [facility] CPT-35358 Level 3 Est. Patient 12:45:34 CDT Baltazar Childers MD [facility] CPT-84180 Level 3 Est. Patient 10:10:11 CDT Baltazar Childers MD [facility] CPT-48818 Level 3 Est. Patient 14:07:50 CDT Baltazar Childers MD [facility] CPT-79260 Level 4 Est. Patient 12:26:10 BUTTON [employer] Baltazar Childers MD [facility] CPT-66454 Level 4 Est. Patient 14:45:38 CDT Baltazar Childers MD [facility] CPT-22073 Level 4 New Patient 12:30:48 CDT Baltazar hinton MD [facility] Procedures Code Procedure Name Date Entry Date Standard Desc ription CPT-03784 Venipuncture Draw Fee 12:10:27 [employer]TON [employer] CPT-31489 Fluzone Quadrivalent Intramuscular Suspe nsion 0.5 ML 10:49:13 CDT CPT-13946 First Vx Component - Ix admi n via ID IM or jet inj without physician counseling 15:17:19 BUTTON SEW[employer] CPT-29625 Pneumovax 23 15:17:19 BUTTON SEWER [employer] CPT-94037 Pneumovax 14:52:45 BUTTON SEWER [employer] CPT-67069 Venipuncture Draw Fee 14:06:30 BUTTON SEW[employer] CPT-000 Give Appropriate Flu Vaccine 14:18:34 BUTTON SEWER HAND 2 CPT-64035 Administration single or combination vac cine inc oral 14:46:00 BUTTON SEWER HAND CPT-91892 Influenza split virus > age 3 14:46:00 BUTTON SEWER HAND CPT-OV Office Visit 19:13:16 CDT CPT-05911 Zostavax 18:41:56 CDT CPT-73787 Administration single or combination vac cine inc oral 12:56:39 CDT CPT-07734 Zoster Vaccine (Zostavax) 12:56:39 CDT 2012 CPT-23542 Venipuncture Draw Fee 10:58:57 CDT CPT-93804 Sono pelvis non OB uterus ovaries cervix 17:45:04 CDT CPT-53241 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
--- OUTSIDE RECORDS SUMMARY | 2019-10-27 13:13 | XMS REPORT | Clinical Summary ---
Author Author Admin, Elba Lance [facility] Address Unknown Phone Unavailable Allergies, Adverse 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 [employer]IST Benign neoplasm of colon PERIPHERAL NEUROPATHY [...] day to coat the stomach 2015 SUCRALFATE [id number] No Longer Active Baltazar Childers MD Active PEN NEEDLES 31G X 6 MM MISC use 1 daily INSULIN PEN NEEDLE 75638231539 Active Bella Suarez [employer]IST Active TOUJEO SOLOSTAR 300 UNIT/ML SC SOPN 10 units SC daily INSULIN GLARGINE 94572267926 No Longer Active Martita Godinez RMA Active LANTUS SOLOSTAR 100 UNIT/ML SC SOPN 10 units SC daily INSULIN GLARGINE 94508592925 Active Baltazar Childers MD Active NAPROXEN SODIUM 220 MG ORAL TABS 1 three times a day as needed 2 NAPROXEN SODIUM 57756799903 No Longer Active Baltazar Childers MD Active ATORVASTATIN CALCIUM 20 MG ORAL TABS Take 1 tab daily ATORVASTATIN CALCIUM 09112935065 Active Baltazar Childers MD Active FUROSEMIDE 40 MG TABS Take one by mouth daily FUROSEMIDE 21107907395 Active Baltazar Childers MD Active LISINOPRIL 20 MG TABS Take one by mouth daily at bedtime LISINOPRIL 02120174554 Active Baltazar Childers MD Active ONETOUCH ULTRA BLUE STRP Test twice a day GLUCO SE BLOOD 44475271505 No Longer Active Baltazar Childers MD Active TRUEPLUS LANCETS 33G MISC Test twice a day LANCET S 15733649394 Active KENDALL Juarez Active TRUEDRAW LANCING DEVICE MISC Test twice a day L ANCET DEVICES 79794817089 Active Baltazar Childers MD Active TRUETRACK TEST STRP Test twice a day GLUCOSE BLOO D 70771739349 Active KENDALL Juarez Active TRUETRACK BLOOD GLUCOSE W/DEVICE KIT Test twice a day BLOOD GLUCOSE MONITORING SUPPL 41857007144 Active Baltazar Childers MD Activ e HYDROCODONE-ACETAMINOPHEN 7.5-325 MG TABS Take 1 tab every 6-8 hour s PRN HYDROCODONE-ACETAMINOPHEN 57312178759 Active Baltazar Childers MD Active NORTRIPTYLINE HCL 50 MG CAPS 1 every night for neuropathy 4 NORTRIPTYLINE HCL 40788787564 Active Baltazar Childers MD Acti ve GABAPENTIN 300 MG CAPS 1 three times a day GABAPE NTIN 64425932830 Active Baltazar Childers MD Active GABAPENTIN 300 MG CAPS 1 po qd x 2 days, then 1 po BID x 2 d ays, then 1 po TID GABAPENTIN 76871887859 No Longer Active Baltazar silverman MD Active TRAMADOL HCL 50 MG TABS 1 twice a day as needed for pain TRAMADOL HCL 42354915490 Active Baltazar Childers MD Active NAPROXEN 500 MG TABS 1 tablet by mouth twice daily NAPROXEN 76150771714 No Longer Active Baltazar Childers MD Active PROAIR HFA 108 (90 BASE) MCG/ACT AERS 2 puffs four times a d ay as needed ALBUTEROL SULFATE 31827466904 Active KENDALL Juarez Active DEPO-TESTOSTERONE 200 MG/ML OIL as directed RUFINO TOSTERONE CYPIONATE 47842239917 No Longer Active Baltazar Childers MD Active LIPITOR 20 MG TABS Take one by mouth daily in evening ATORVASTATIN CALCIUM 31909723658 No Longer Active Baltazar Childers MD Activ e CRESTOR 10 MG TABS 1 by mouth every day R OSUVASTATIN CALCIUM 56237762918 No Longer Active Baltazar Childers MD Activ e PHENTERMINE HCL 37.5 MG TABS Take one by mouth daily 2 PHENTERMINE HCL 77007654527 No Longer Active Baltazar Childers MD Activ e ROBAXIN-750 750 MG TABS Take one by mouth daily ME THOCARBAMOL 93621184645 Active Baltazar Childers MD Active TIZANIDINE HCL 4 MG TABS 1 daily as needed for muscle spasm 2011 TIZANIDINE HCL 63578613026 No Longer Active Dawna Salazar RN Active [id number]-[id number] 50-325-40 MG TABS 1 four time s a day as needed for heacache [id number] 65903335983 Active Baltazar Childers MD Active SUMATRIPTAN SUCCINATE 100 MG TABS 1 tablet by mouth at onset of migraine as needed SUMATRIPTAN SUCCINATE 88812561774 Active Baltazar bynum MD Active LORATADINE 10 MG TABS Take one by mouth daily LORATADINE 25213076360 Active Baltazar Childers MD Active OMEPRAZOLE 20 MG CPDR Take one by mouth daily OMEPRAZOLE 46100308986 Active Baltazar Childers MD Active HYDROXYZINE HCL 25 MG TABS Take one by mouth daily HYDROXYZINE HCL 81337583060 Active Baltazar Childers MD Active GLIPIZIDE 10 MG TABS 1 tablet by mouth twice daily GLIPIZIDE 07063719717 Active Baltazar Childers MD Active ALPRAZOLAM 1 MG TABS 1 tablet by mouth daily at bedtime for restles s leg ALPRAZOLAM 51724676972 Active Baltazar Childers MD Active METFORMIN HCL 1000 MG TABS Take one by mouth twice daily METFORMIN HCL 88165051296 Active Baltazar Childers MD Active TIZANIDINE HCL 4 MG TABS 1 daily as needed for muscle spasm 2011 TIZANIDINE HCL 4 MG TABS 980267 TIZANIDINE HCL Inactiv e PHENTERMINE HCL 37.5 MG TABS Take one by mouth daily 2 PHENTERMINE HCL 37.5 MG TABS 166082 PHENTERMINE HCL Inactive CRESTOR 10 MG TABS 1 by mouth every day C RESTOR 10 MG TABS 817870 ROSUVASTATIN CALCIUM Inactive LIPITOR 20 MG TABS Take one by mouth daily in evening LIPITOR 20 MG TABS 282801 ATORVASTATIN CALCIUM Inactive DEPO-TESTOSTERONE 200 MG/ML OIL as directed 8 DEPO-TESTOSTERONE 200 MG/ML OIL 008808 TESTOSTERONE CYPIONATE Inactive NAPROXEN 500 MG TABS 1 tablet by mouth twice daily 201 07/27/22 NAPROXEN 500 MG TABS 255381 NAPROXEN Inactive GABAPENTIN 300 MG CAPS 1 po qd x 2 days, then 1 po BID x 2 d ays, then 1 po TID GABAPENTIN 300 MG CAPS 846829 GABAPENTIN Inact amie ONETOUCH ULTRA BLUE STRP Test twice a day ONETOUCH ULTRA BLUE STRP GLUCOSE BLOOD Inactive NAPROXEN SODIUM 220 MG ORAL TABS 1 three times a day as needed 2 NAPROXEN SODIUM 220 MG ORAL TABS 246550 NAPROXEN SODIUM Inactive TOUJEO SOLOSTAR 300 UNIT/ML SC SOPN 10 units SC daily TOUJEO SOLOSTAR 300 UNIT/ML SC SOPN INSULIN GLARGINE Inac tive SUCRALFATE 1 GM TABS 1 four times a day to coat the stomach 2015 SUCRALFATE 1 GM TABS 128994 SUCRALFATE Inactive Immunizations Vaccine Administration Date Value Standard Floyd cription pneumococcal immunization administered Pneumovax 23 [CVX33] pneumococcal polysaccharide vaccine, 23 valent Seasonal influenza vaccine, injectable, containing preservative, for > 3 years old (Afluria, FluLaval, Fluzone, Fluvirin, Fluarix, Agriflu(>= 18 yo)) Fluzone (>3 yrs.) [[id number]] Influenza, seasonal, inject able Seasonal influenza vaccine, injectable, containing preservative, for > 3 years old (Afluria, FluLaval, Fluzone, Fluvirin, Fluarix, Agriflu(>= 18 yo)) Fluzone (>3 yrs.) [[id number]] Influenza, seasonal, inject able Vital Signs Date [...] C - Chemistry sodium, serum 139 mmol/L 307-666 2316/07/07 potassium, serum 4.5 mmol/L 3.5-5.2 chloride, serum [...] 11 .6-14.8 platelet count 345 10^3/MM^3 10*3/mm3 538-192 9759/08/08 erythrocyte (RBC) count 3.75 10^6/MM^3 10*6/mm3 4.04-5.4 8 hemoglobin, blood 12.2 g/dL 12.0-16.0 hematocrit, blood 36.5 % 36.0-46.0 mean corpuscular volume, RBC 97 fL 80-97 mean corpuscular hemoglobin, RBC 32.5 pg 27. 0-31.2 Lab Report: CBC, HGBA1C, Renal Panel - C hemistry hemoglobin A1C, blood, as % of total hemoglobin 7.9 % 4.3-6.0 sodium, serum 139 mmol/L 262-959 8314/02/04 potassium, serum 5.4 mmol/L 3.5-5.2 chloride, serum 99 mmol/L 98-107 carbon dioxide, venous blood 36.7 mmol/L 21.0-32 .0 creatinine, serum 2.02 mg/dL 0.55-1.30 blood glucose 181 mg/dL 65-110 urea nitrogen, blood 24 mg/dL 7-18 calcium, serum 9.4 mg/dL 8.5-10.1 Lab Report: CBC, HGBA1C, Renal Panel - H ematology mean corpuscular hemoglobin, RBC 31.9 pg 27. 0-31.2 mean corpuscular hemoglobin concentration, RBC 32.9 G/DL % 31.8-35.4 red blood cell distribution width 15.2 % 11 .6-14.8 platelet count 308 10^3/MM^3 10*3/mm3 909-927 0080/02/04 mean corpuscular volume, RBC 97 fL 80-97 hematocrit, blood 35.6 % 36.0-46.0 hemoglobin, blood 11.7 g/dL 12.0-16.0 erythrocyte (RBC) count 3.66 10^6/MM^3 10*6/mm3 4.04-5.4 8 leukocyte count, blood 8.0 10^3/MM^3 10*3/mm3 4.6-10.2 Lab Report: Comp. Metabolic Panel, Lipid Panel - Chemistry sodium, serum 143 mmol/L 002-202 8746/12/19 carbon dioxide, venous blood 32.5 mmol/L 21.0-32 .0 potassium, serum 4.9 mmol/L 3.5-5.2 chloride, serum 101 mmol/L 98-107 blood glucose 129 mg/dL 65-110 urea nitrogen, blood 18 mg/dL 7-18 creatinine, serum 1.79 mg/dL 0.55-1.30 alanine aminotransferase (SGPT), serum 34 U/L 12-78 aspartate aminotransferase (SGOT), serum 26 U/L 15-37 calcium, serum 8.9 mg/dL 8.5-10.1 bilirubin, serum, total 0.30 mg/dL 0.00-1.00 cholesterol, serum 214 mg/dL 500-508 8826/12/19 triglyceride, serum, fasting 351 mg/dL 30-200 HDL cholesterol, serum 52 mg/dL 32-96 LDL cholesterol, serum 92 mg/dL 0-130 Lab Report: HGBA1C - Chemistry hemoglobin A1C, blood, as % of total hemoglobin 7.3 % 4.3-6.0 Lab Report: Renal Panel - Chemistry sodium, serum 141 mmol/L 339-713 6729/08/08 urea nitrogen, blood 30 mg/dL 7-18 calcium, serum 9.8 mg/dL 8.5-10.1 potassium, serum 4.9 mmol/L 3.5-5.2 chloride, serum 101 mmol/L 98-107 carbon dioxide, venous blood 34.1 mmol/L 21.0-32 .0 creatinine, serum 1.98 mg/dL 0.55-1.30 blood glucose 193 mg/dL 65-110 Encounters Code Encounter Date Provider Facility CPT-68384 Level 4 Est. Patient 11:34:17 CDT Baltazar Childers MD [facility] [id number] Level 3 Est. Patient 16:40:40 CDT Baltazar Childers MD [facility] [place]-93976 Level 4 Est. Patient 10:41:24 CDT Baltazar Childers MD [facility] [place]-68580 Level 4 Est. Patient 16:01:48 CDT Baltazar Childers MD [facility] [place]-96961 Level 4 Est. Patient 16:54:07 OBSTETRICS GYNECOLOGY MD Baltazar Childers MD [facility] [place]-31366 Level 4 Est. Patient 15:42:12 CDT Baltazar Childers MD [facility] [place]-[address]236 Level 4 Est. Patient 11:29:55 CDT Baltazar Childers MD [facility] [place]-25063 Level 4 Est. Patient 14:15:19 CDT Baltazar Childers MD [facility] [place]-38332 Level 4 Est. Patient 12:20:13 CDT Baltazar Childers MD [facility] [place]-35498 Level 4 Est. Patient 14:52:45 OBSTETRICS GYNECOLOGY MD Baltazar Childers MD [facility] CPT-16225 Level 4 Est. Patient 14:18:34 OBSTETRICS GYNECOLOGY MD Baltazar Childers MD [facility] [place]-51669 Level 4 Est. Patient 15:18:29 CDT Baltazar Childers MD [facility] [place]-22106 Level 3 Est. Patient 12:45:34 CDT Baltazar Childers MD [facility] [place]-79128 Level 3 Est. Patient 10:10:11 CDT Baltazar Childers MD [facility] CPT-00925 Level 3 Est. Patient 14:07:50 CDT Baltazar Childers MD [facility] CPT-18488 Level 4 Est. Patient 12:26:10 OBSTETRICS GYNECOLOGY MD Baltazar Childers MD [facility] CPT-29963 Level 4 Est. Patient 14:45:38 CDT Baltazar Childers MD [facility] CPT-51476 Level 4 New Patient 12:30:48 CDT Baltazar hinton MD [facility] Procedures Code Procedure Name Date Entry Date Standard Desc ription CPT-33085 Lipid - LAB USE ONLY 17:39:15 OBSTETRICS GYNECOLOGY MD 9 CPT-82073 HGBA1C - LAB USE ONLY 17:39:15 OBSTETRICS GYNECOLOGY MD CPT-85061 CMP - LAB USE ONLY 17:39:14 OBSTETRICS GYNECOLOGY MD CPT-32676 Venipuncture Draw Fee 17:39:14 OBSTETRICS GYNECOLOGY MD CPT-86909 First Vx - Ix admin via ID I M or jet injects without counseling by physician 16:55:17 OBSTETRICS GYNECOLOGY MD CPT-76996 Fluzone Quadrivalent Intramuscular Suspe nsion 0.5 ML 16:55:17 OBSTETRICS GYNECOLOGY MD CPT-41184 Renal Panel - LAB USE ONLY 17:39:20 CDT 201 10/31/07 CPT-65294 CBC - LAB USE ONLY 17:39:20 CDT CPT-59839 Venipuncture Draw Fee 17:39:20 CDT CPT-97348 Venipuncture Draw Fee 14:33:30 CDT CPT-79873 Renal Panel - LAB USE ONLY 14:33:30 CDT 201 10/31/07 CPT-77734 CBC - LAB USE ONLY 14:33:29 CDT CPT-30287 Venipuncture Draw Fee 14:50:21 OBSTETRICS GYNECOLOGY MD CPT-66462 Immunization Single Admin 17:35:35 CDT 2014 CPT-53201 Fluzone Quadrivalent preservative free ( >=3yrs.) 17:35:35 CDT CPT-74945 Venipuncture Draw Fee 12:10:27 OBSTETRICS GYNECOLOGY MD CPT-27286 Fluzone Quadrivalent Intramuscular Suspe nsion 0.5 ML 10:49:13 CDT CPT-08638 First Vx Component - Ix admi n via ID IM or jet inj without physician counseling 15:17:19 OBSTETRICS GYNECOLOGY MD CPT-15845 Pneumovax 23 15:17:19 OBSTETRICS GYNECOLOGY MD CPT-76397 Pneumovax 14:52:45 OBSTETRICS GYNECOLOGY MD CPT-29662 Venipuncture Draw Fee 14:06:30 OBSTETRICS GYNECOLOGY MD CPT-000 Give Appropriate Flu Vaccine 14:18:34 OBSTETRICS GYNECOLOGY MD 2 CPT-27269 Administration single or combination vac cine inc oral 14:46:00 OBSTETRICS GYNECOLOGY MD CPT-88373 Influenza split virus > age 3 14:46:00 OBSTETRICS GYNECOLOGY MD CPT-OV Office Visit 19:13:16 CDT CPT-17268 Zostavax 18:41:56 CDT CPT-13632 Administration single or combination vac cine inc oral 12:56:39 CDT CPT-94513 Zoster Vaccine (Zostavax) 12:56:39 CDT 2012 CPT-17416 Venipuncture Draw Fee 10:58:57 CDT CPT-36758 Sono pelvis non OB uterus ovaries cervix 17:45:04 CDT CPT-79610 Sono retroperitoneal complete kidneys an d bladder 17:14:36 CDT CPT-OV Office Visit 14:59:38 OBSTETRICS GYNECOLOGY MD CPT-J1070 Depo Testosterone 100 mg 14:50:13 CDT 03/05 CPT-05964 Abx/Therapy Injection 14:50:13 CDT CPT-04961 Administration single or combination vac cine inc oral 14:34:43 CDT CPT-66235 Influenza split virus > age 3 14:34:43 CDT CPT-J1070 Depo Testosterone 100 mg 17:37:13 CDT 01/11 CPT-27200 Abx/Therapy Injection 17:37:13 CDT CPT-36043 Venipuncture Draw Fee 16:30:13 CDT CPT-10092 Venipuncture Draw Fee 16:29:43 CDT CPT-J1070 Depo Testosterone 100 mg 14:45:38 CDT 01/11
--- OUTSIDE RECORDS SUMMARY | 2019-10-27 13:13 | XMS REPORT | Clinical Summary ---
Author Author Admin, Elba Lance [facility] Address Unknown Phone Unavailable Allergies, Adverse 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 C[employer]IER PAYMENTS RECEIVED Benign neoplasm of colon PERIPHERAL NEUROPATHY 356.9 [...] 1 tab daily for HTN AMLODIPINE BESYLATE 46164154176 Active KENDALL Juarez Active SYNTHROID 0.1 MG TAB 1 tablet by mouth daily LE VOTHYROXINE SODIUM 41207242072 Active Shonna Parker APRN Active GLIPIZIDE 10 MG TAB take 2 tablets twice daily GLIPIZIDE 13934452065 Active Baltazar Childers MD Active SUCRALFATE 1 GM TABS 1 four times a day to coat the stomach 2015 SUCRALFATE 30431681251 No Longer Active Baltazar Childers MD Active PEN NEEDLES 31G X 6 MM MISC use 1 daily INSULIN PEN NEEDLE 76950075817 Active Gato Rae MD Active TOUJEO SOLOSTAR 300 UNIT/ML SC SOPN 10 units SC daily INSULIN GLARGINE 15664755802 No Longer Active [place] ARGUETA Active LANTUS SOLOSTAR 100 UNIT/ML SC SOPN 10 units SC daily INSULIN GLARGINE 92601673405 Active KENDALL Juarez Active NAPROXEN SODIUM 220 MG ORAL TABS 1 three times a day as needed 2 NAPROXEN SODIUM 68169053262 No Longer Active Baltazar Childers MD Active ATORVASTATIN CALCIUM 20 MG ORAL TABS Take 1 tab daily ATORVASTATIN CALCIUM 30735602241 Active KENDALL Juarez Active FUROSEMIDE 40 MG TABS Take one by mouth daily FUROSEMIDE 58195724223 Active Baltazar Childers MD Active LISINOPRIL 20 MG TABS Take one by mouth daily at bedtime LISINOPRIL 53930888197 No Longer Active Baltazar Childers MD Active ONETOUCH ULTRA BLUE STRP Test twice a day GLUCO SE BLOOD 24310306308 No Longer Active Baltazar Childers MD Active TRUEPLUS LANCETS 33G MISC Test twice a day LANCET S 45886346365 Active KENDALL Juarez Active TRUEDRAW LANCING DEVICE MISC Test twice a day L ANCET DEVICES 40221551063 Active Baltazar Childers MD Active TRUETRACK TEST STRP Test twice a day GLUCOSE BLOO D 49246146467 Active KENDALL Juarez Active TRUETRACK BLOOD GLUCOSE W/DEVICE KIT Test twice a day BLOOD GLUCOSE MONITORING SUPPL 14622545266 Active Baltazar Childers MD Activ e HYDROCODONE-ACETAMINOPHEN 7.5-325 MG TABS Take 1 tab every 6-8 hour s PRN HYDROCODONE-ACETAMINOPHEN 63493032339 Active Baltazar Childers MD Active NORTRIPTYLINE HCL 50 MG CAPS 1 every night for neuropathy 4 NORTRIPTYLINE HCL 37158494498 Active Baltazar Childers MD Acti ve GABAPENTIN 300 MG CAPS 1 three times a day GABAPE NTIN 43264151972 Active Baltazar Childers MD Active GABAPENTIN 300 MG CAPS 1 po qd x 2 days, then 1 po BID x 2 d ays, then 1 po TID GABAPENTIN 54983574053 No Longer Active Baltazar silverman MD Active TRAMADOL HCL 50 MG TABS 1 twice a day as needed for pain TRAMADOL HCL 89575629963 Active Baltazar Childers MD Active NAPROXEN 500 MG TABS 1 tablet by mouth twice daily NAPROXEN 02777394497 No Longer Active Baltazar Childers MD Active PROAIR HFA 108 (90 BASE) MCG/ACT AERS 2 puffs four times a d ay as needed ALBUTEROL SULFATE 28763219119 Active Baltazar Childers MD Active DEPO-TESTOSTERONE 200 MG/ML OIL as directed RUFINO TOSTERONE CYPIONATE 09223212499 No Longer Active Baltazar Childers MD Active LIPITOR 20 MG TABS Take one by mouth daily in evening ATORVASTATIN CALCIUM 22021392726 No Longer Active Baltazar Childers MD Activ e CRESTOR 10 MG TABS 1 by mouth every day R OSUVASTATIN CALCIUM 11274464598 No Longer Active Baltazar Childers MD Activ e PHENTERMINE HCL 37.5 MG TABS Take one by mouth daily 2 PHENTERMINE HCL 01664501857 No Longer Active Baltazar Childers MD Activ e ROBAXIN-750 750 MG TABS Take one by mouth daily ME THOCARBAMOL 40454158288 Active Baltazar Childers MD Active TIZANIDINE HCL 4 MG TABS 1 daily as needed for muscle spasm 2011 TIZANIDINE HCL 76313086562 No Longer Active Dawna Salazar RN Active [id number] 50-325-40 MG TABS 1 four time s a day as needed for heacache [id number] 62114594256 Active KENDALL Juarez Active SUMATRIPTAN SUCCINATE 100 MG TABS 1 tablet by mouth at onset of migraine as needed SUMATRIPTAN SUCCINATE 43897087943 Active KENDALL Juarez Active LORATADINE 10 MG TABS Take one by mouth daily LORATADINE 24471000917 Active Beth KENDALL Carr Active OMEPRAZOLE 20 MG CPDR Take one by mouth daily OMEPRAZOLE 14776903501 Active Baltazar Childers MD Active HYDROXYZINE HCL 25 MG TABS Take one by mouth daily HYDROXYZINE HCL 32795298268 Active Baltazar Childers MD Active ALPRAZOLAM 1 MG TABS 1 tablet by mouth daily at bedtime for restles s leg ALPRAZOLAM 16141978186 Active Baltazar Childers MD Active METFORMIN HCL 1000 MG TABS Take one by mouth twice daily METFORMIN HCL 73462633155 Active Baltazar Childers MD Active NAPROXEN 500 MG TABS 1 tablet by mouth twice daily 201 07/27/22 NAPROXEN 500 MG TABS 796509 NAPROXEN Inactive PHENTERMINE HCL 37.5 MG TABS Take one by mouth daily 2 PHENTERMINE HCL 37.5 MG TABS 351009 PHENTERMINE HCL Inactive SUCRALFATE 1 GM TABS 1 four times a day to coat the stomach 2015 SUCRALFATE 1 GM TABS 534345 SUCRALFATE Inactive NAPROXEN SODIUM 220 MG ORAL TABS 1 three times a day as needed 2 NAPROXEN SODIUM 220 MG ORAL TABS 300828 NAPROXEN SODIUM Inactive TIZANIDINE HCL 4 MG TABS 1 daily as needed for muscle spasm 2011 TIZANIDINE HCL 4 MG TABS 865212 TIZANIDINE HCL Inactiv e GABAPENTIN 300 MG CAPS 1 po qd x 2 days, then 1 po BID x 2 d ays, then 1 po TID GABAPENTIN 300 MG CAPS 397639 GABAPENTIN Inact amie LIPITOR 20 MG TABS Take one by mouth daily in evening LIPITOR 20 MG TABS 208279 ATORVASTATIN CALCIUM Inactive ONETOUCH ULTRA BLUE STRP Test twice a day ONETOUCH ULTRA BLUE STRP GLUCOSE BLOOD Inactive CRESTOR 10 MG TABS 1 by mouth every day C RESTOR 10 MG TABS 712554 ROSUVASTATIN CALCIUM Inactive DEPO-TESTOSTERONE 200 MG/ML OIL as directed 8 DEPO-TESTOSTERONE 200 MG/ML OIL 977584 TESTOSTERONE CYPIONATE Inactive TOUJEO SOLOSTAR 300 UNIT/ML [...] Fluarix, Agriflu(>= 18 yo)) Fluzone (>3 yrs.) [[id number]] Influenza, seasonal, inject able Seasonal influenza vaccine, injectable, containing preservative, for > 3 years old (Afluria, FluLaval, Fluzone, Fluvirin, Fluarix, Agriflu(>= 18 yo)) Fluzone (>3 yrs.) [[id number]] Influenza, seasonal, inject able Vital Signs Date [...] C - Chemistry sodium, serum 143 mmol/L 298-457 6320/06/19 potassium, serum 5.9 mmol/L 3.5-5.2 chloride, serum 105 mmol/L 98-107 carbon dioxide, venous blood 30.2 mmol/L 21.0-32 .0 blood glucose 189 mg/dL 65-110 calcium, serum 9.7 mg/dL 8.5-10.1 urea nitrogen, blood 37 mg/dL 7-18 creatinine, serum 2.11 mg/dL 0.55-1.30 hemoglobin A1C, blood, as % of total hemoglobin 8.2 % 4.3-6.0 Lab Report: CBC, Renal Panel - Chemistry sodium, serum 142 mmol/L 185-840 0643/08/11 potassium, serum 4.8 mmol/L 3.5-5.2 chloride, serum [...] Panel - Chemistry sodium, serum 143 mmol/L 308-708 5414/12/19 carbon dioxide, venous blood 32.5 mmol/L 21.0-32 .0 potassium, serum 4.9 mmol/L 3.5-5.2 chloride, serum 101 mmol/L 98-107 blood glucose 129 mg/dL 65-110 urea nitrogen, blood 18 mg/dL 7-18 creatinine, serum 1.79 mg/dL 0.55-1.30 alanine aminotransferase (SGPT), serum 34 U/L 12-78 aspartate aminotransferase (SGOT), serum 26 U/L 15-37 calcium, serum 8.9 mg/dL 8.5-10.1 bilirubin, serum, total 0.30 mg/dL 0.00-1.00 cholesterol, serum 214 mg/dL 241-788 1750/12/19 triglyceride, serum, fasting 351 mg/dL 30-200 HDL [...] 4.3-6.0 Encounters Code Encounter Date Provider Facility CPT-48157 Level 4 Est. Patient 14:22:31 CDT Baltazar Childers MD [facility] CPT-24374 Level 4 Est. Patient 15:44:38 CDT [facility] Parker [facility] CPT-94948 Level 4 Est. Patient 11:34:17 CDT Baltazar Childers MD [facility] CPT-35125 Level 3 Est. Patient 16:40:40 CDT Baltazar Childers MD [facility] CPT-16265 Level 4 Est. Patient 10:41:24 CDT Baltazar Childers MD [facility] CPT-30721 Level 4 Est. Patient 16:01:48 CDT Baltazar Childers MD [facility] CPT-46439 Level 4 Est. Patient 16:54:07 PUBLIC AFFAIRS MANAGER Baltazar Childers MD [facility] CPT-31163 Level 4 Est. Patient 15:42:12 CDT Baltazar Childers MD [facility] CPT-43846 Level 4 Est. Patient 11:29:55 CDT Baltazar Childers MD [facility] CPT-40482 Level 4 Est. Patient 14:15:19 CDT Baltazar Childers MD [facility] CPT-58286 Level 4 Est. Patient 12:20:13 CDT Baltazar Childers MD [facility] CPT-95247 Level 4 Est. Patient 14:52:45 PUBLIC AFFAIRS MANAGER Baltazar Childers MD [facility] CPT-17472 Level 4 Est. Patient 14:18:34 PUBLIC AFFAIRS MANAGER Baltazar Childers MD [facility] CPT-62793 Level 4 Est. Patient 15:18:29 CDT Baltazar Childers MD [facility] CPT-02242 Level 3 Est. Patient 12:45:34 CDT Baltazar Childers MD [facility] CPT-29419 Level 3 Est. Patient 10:10:11 CDT Baltazar Childers MD [facility] CPT-29595 Level 3 Est. Patient 14:07:50 CDT Baltazar Childers MD [facility] CPT-21698 Level 4 Est. Patient 12:26:10 PUBLIC AFFAIRS MANAGER Baltazar Childers MD [facility] CPT-99916 Level 4 Est. Patient 14:45:38 CDT Baltazar Childers MD [facility] CPT-39092 Level 4 New Patient 12:30:48 CDT Baltazar hinton MD [facility] Procedures Code Procedure Name Date Entry Date Standard Desc ription CPT-97221 Venipuncture Draw Fee 12:04:12 CDT CPT-79392 Lipid - LAB USE ONLY 17:39:15 PUBLIC AFFAIRS MANAGER 9 CPT-81903 HGBA1C - LAB USE ONLY 17:39:15 PUBLIC AFFAIRS MANAGER CPT-94454 CMP - LAB USE ONLY 17:39:14 PUBLIC AFFAIRS MANAGER CPT-81539 Venipuncture Draw Fee 17:39:14 PUBLIC AFFAIRS MANAGER CPT-00783 First Vx - Ix admin via ID I M or jet injects without counseling by physician 16:55:17 PUBLIC AFFAIRS MANAGER CPT-02527 Fluzone Quadrivalent Intramuscular Suspe nsion 0.5 ML 16:55:17 PUBLIC AFFAIRS MANAGER CPT-41436 Renal Panel - LAB USE ONLY 17:39:20 CDT 201 10/31/07 CPT-47619 CBC - LAB USE ONLY 17:39:20 CDT CPT-55731 Venipuncture Draw Fee 17:39:20 CDT CPT-24882 Venipuncture Draw Fee 14:33:30 CDT CPT-92823 Renal Panel - LAB USE ONLY 14:33:30 CDT 201 10/31/07 CPT-08711 CBC - LAB USE ONLY 14:33:29 CDT CPT-15548 Venipuncture Draw Fee 14:50:21 PUBLIC AFFAIRS MANAGER CPT-17401 Immunization Single Admin 17:35:35 CDT 2014 CPT-37702 Fluzone Quadrivalent preservative free ( >=3yrs.) 17:35:35 CDT CPT-41324 Venipuncture Draw Fee 12:10:27 PUBLIC AFFAIRS MANAGER CPT-20076 Fluzone Quadrivalent Intramuscular Suspe nsion 0.5 ML 10:49:13 CDT CPT-25450 First Vx Component - Ix admi n via ID IM or jet inj without physician counseling 15:17:19 PUBLIC AFFAIRS MANAGER CPT-23294 Pneumovax 23 15:17:19 PUBLIC AFFAIRS MANAGER CPT-01941 Pneumovax 14:52:45 PUBLIC AFFAIRS MANAGER CPT-12077 Venipuncture Draw Fee 14:06:30 PUBLIC AFFAIRS MANAGER CPT-000 Give Appropriate Flu Vaccine 14:18:34 PUBLIC AFFAIRS MANAGER 2 CPT-85461 Administration single or combination vac cine inc oral 14:46:00 PUBLIC AFFAIRS MANAGER CPT-00211 Influenza split virus > age 3 14:46:00 PUBLIC AFFAIRS MANAGER CPT-OV Office Visit 19:13:16 CDT CPT-66808 Zostavax 18:41:56 CDT CPT-68275 Administration single or combination vac cine inc oral 12:56:39 CDT CPT-41204 Zoster Vaccine (Zostavax) 12:56:39 CDT 2012 CPT-90346 Venipuncture Draw Fee 10:58:57 CDT CPT-53261 Sono pelvis non OB uterus ovaries cervix 17:45:04 CDT CPT-09369 Sono retroperitoneal complete kidneys an d bladder 17:14:36 CDT CPT-OV Office Visit 14:59:38 PUBLIC AFFAIRS MANAGER CPT-J1070 Depo Testosterone 100 mg 14:50:13 CDT 03/05 CPT-90785 Abx/Therapy Injection 14:50:13 CDT CPT-29870 Administration single or combination vac cine inc oral 14:34:43 CDT CPT-62873 Influenza split virus > age 3 14:34:43 CDT CPT-J1070 Depo Testosterone 100 mg 17:37:13 CDT 01/11 CPT-89672 Abx/Therapy Injection 17:37:13 CDT CPT-79400 Venipuncture Draw Fee 16:30:13 CDT CPT-50213 Venipuncture Draw Fee 16:29:43 CDT CPT-J1070 Depo Testosterone 100 mg 14:45:38 CDT 01/11
--- OUTSIDE RECORDS SUMMARY | 2019-10-27 13:13 | XMS REPORT | Clinical Summary ---
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 Benign neoplasm of colon PERIPHERAL NEUROPATHY [...] ronary atherosclerosis of unspecified type of vessel, [place] or graft OTH NONSPC ABN FINDNG RAD&OTH [...] a day to coat the stomach SUCRALFATE 52303993244 Active Baltazar Childers MD Active PEN NEEDLES 31G X 6 MM MISC use 1 daily INSULIN PEN NEEDLE 83009334483 Active Martita Herbert RMA Active TOUJEO SOLOSTAR 300 UNIT/ML SC SOPN 10 units SC daily INSULIN GLARGINE 37477827082 No Longer Active Martita Herbert RMA Active LANTUS SOLOSTAR 100 UNIT/ML SC SOPN 10 units SC daily INSULIN GLARGINE 52052602896 Active KENDALL Juarez Active NAPROXEN SODIUM 220 MG ORAL TABS 1 three times a day as needed 2 NAPROXEN SODIUM 48868540144 No Longer Active Baltazar Childers MD Active ATORVASTATIN CALCIUM 20 MG ORAL TABS Take 1 tab daily ATORVASTATIN CALCIUM 06645493087 Active Baltazar Childers MD Active FUROSEMIDE 40 MG TABS Take one by mouth daily FUROSEMIDE 22657245142 Active Baltazar Childers MD Active LISINOPRIL 20 MG TABS Take one by mouth daily at bedtime LISINOPRIL 36476049847 Active Baltazar Childers MD Active ONETOUCH ULTRA BLUE STRP Test twice a day GLUCO SE BLOOD 01026603812 No Longer Active Baltazar Childers MD Active TRUEPLUS LANCETS 33G MISC Test twice a day LANCET S 11280957051 Active KENDALL Juarez Active TRUEDRAW LANCING DEVICE MISC Test twice a day L ANCET DEVICES 76502886529 Active Baltazar Childers MD Active TRUETRACK TEST STRP Test twice a day GLUCOSE BLOO D 09614142469 Active KENDALL Juarez Active TRUETRACK BLOOD GLUCOSE W/DEVICE KIT Test twice a day BLOOD GLUCOSE MONITORING SUPPL 81625956557 Active Baltazar Childers MD Activ e HYDROCODONE-ACETAMINOPHEN 7.5-325 MG TABS Take 1 tab every 6-8 hour s PRN HYDROCODONE-ACETAMINOPHEN 99116588867 Active Baltazar Childers MD Active NORTRIPTYLINE HCL 50 MG CAPS 1 every night for neuropathy 4 NORTRIPTYLINE HCL 37743551182 Active Baltazar Childers MD Acti ve GABAPENTIN 300 MG CAPS 1 three times a day GABAPE NTIN 83403344705 Active Baltazar Childers MD Active GABAPENTIN 300 MG CAPS 1 po qd x 2 days, then 1 po BID x 2 d ays, then 1 po TID GABAPENTIN 79323061912 No Longer Active Baltazar silverman MD Active TRAMADOL HCL 50 MG TABS 1 twice a day as needed for pain TRAMADOL HCL 62966176018 Active Baltazar Childers MD Active NAPROXEN 500 MG TABS 1 tablet by mouth twice daily NAPROXEN 95361504487 No Longer Active Baltazar Childers MD Active PROAIR HFA 108 (90 BASE) MCG/ACT AERS 2 puffs four times a d ay as needed ALBUTEROL SULFATE 87793591780 Active Baltazar Childers MD Active DEPO-TESTOSTERONE 200 MG/ML OIL as directed RUFINO TOSTERONE CYPIONATE 07686363126 No Longer Active Baltazar Childers MD Active LIPITOR 20 MG TABS Take one by mouth daily in evening ATORVASTATIN CALCIUM 93828126997 No Longer Active Baltazar Childers MD Activ e CRESTOR 10 MG TABS 1 by mouth every day R OSUVASTATIN CALCIUM 98064714544 No Longer Active Baltazar Childers MD Activ e PHENTERMINE HCL 37.5 MG TABS Take one by mouth daily 2 PHENTERMINE HCL 53694938513 No Longer Active Baltazar Childers MD Activ e ROBAXIN-750 750 MG TABS Take one by mouth daily ME THOCARBAMOL 30688686349 Active Baltazar Childers MD Active TIZANIDINE HCL 4 MG TABS 1 daily as needed for muscle spasm 2011 TIZANIDINE HCL 31441953096 No Longer Active Dawna Salazar RN Active [id number] 50-325-40 MG TABS 1 four time s a day as needed for heacache [id number] 64592108726 Active Baltazar Childers MD Active SUMATRIPTAN SUCCINATE 100 MG TABS 1 tablet by mouth at onset of migraine as needed SUMATRIPTAN SUCCINATE 51491121472 Active Bella STEPHEN RN Active LORATADINE 10 MG TABS Take one by mouth daily LORATADINE 99132518879 Active Baltazar Childers MD Active OMEPRAZOLE 20 MG CPDR Take one by mouth daily OMEPRAZOLE 29012460021 Active Argentina Lyons Active HYDROXYZINE HCL 25 MG TABS Take one by mouth daily HYDROXYZINE HCL 10924650622 Active Baltazar Childers MD Active GLIPIZIDE 10 MG TABS 1 tablet by mouth twice daily GLIPIZIDE 29653186665 Active Baltazar Childers MD Active ALPRAZOLAM 1 MG TABS 1 tablet by mouth daily at bedtime for restles s leg ALPRAZOLAM 57455577931 Active Baltazar Childers MD Active METFORMIN HCL 1000 MG TABS Take one by mouth twice daily METFORMIN HCL 69039098777 Active Baltazar Childers MD Active TIZANIDINE HCL 4 MG TABS 1 daily as needed for muscle spasm 2011 TIZANIDINE HCL 4 MG TABS 764137 TIZANIDINE HCL Inactiv e PHENTERMINE HCL 37.5 MG TABS Take one by mouth daily 2 PHENTERMINE HCL 37.5 MG TABS 678309 PHENTERMINE HCL Inactive CRESTOR 10 MG TABS 1 by mouth every day C RESTOR 10 MG TABS 769568 ROSUVASTATIN CALCIUM Inactive LIPITOR 20 MG TABS Take one by mouth daily in evening LIPITOR 20 MG TABS 797981 ATORVASTATIN CALCIUM Inactive DEPO-TESTOSTERONE 200 MG/ML OIL as directed 8 DEPO-TESTOSTERONE 200 MG/ML OIL 897666 TESTOSTERONE CYPIONATE Inactive NAPROXEN 500 MG TABS 1 tablet by mouth twice daily 201 07/27/22 NAPROXEN 500 MG TABS 320591 NAPROXEN Inactive GABAPENTIN 300 MG CAPS 1 po qd x 2 days, then 1 po BID x 2 d ays, then 1 po TID GABAPENTIN 300 MG CAPS 445274 GABAPENTIN Inact amie ONETOUCH ULTRA BLUE STRP Test twice a day ONETOUCH ULTRA BLUE STRP GLUCOSE BLOOD Inactive NAPROXEN SODIUM 220 MG ORAL TABS 1 three times a day as needed 2 NAPROXEN SODIUM 220 MG ORAL TABS 725804 NAPROXEN SODIUM Inactive TOUJEO SOLOSTAR 300 UNIT/ML [...] Fluarix, Agriflu(>= 18 yo)) Fluzone (>3 yrs.) [[id number]] Influenza, seasonal, inject able Seasonal influenza vaccine, injectable, containing preservative, for > 3 years old (Afluria, FluLaval, Fluzone, Fluvirin, Fluarix, Agriflu(>= 18 yo)) Fluzone (>3 yrs.) [[id number]] Influenza, seasonal, inject able Vital Signs Date [...] C - Chemistry sodium, serum 139 mmol/L 883-995 5625/07/07 urea nitrogen, blood 14 mg/dL 7-18 creatinine, serum 1.89 mg/dL 0.55-1.30 hemoglobin A1C, blood, as % of total hemoglobin 8.3 % 4.3-6.0 potassium, serum 4.5 mmol/L 3.5-5.2 chloride, serum 99 mmol/L 98-107 carbon dioxide, venous blood 33.8 mmol/L 21.0-32 .0 blood glucose 209 mg/dL 65-110 calcium, serum 9.8 mg/dL 8.5-10.1 Lab Report: CBC - Hematology leukocyte count, [...] 7.9 % 4.3-6.0 sodium, serum 139 mmol/L 962-022 1778/02/04 potassium, serum 5.4 mmol/L 3.5-5.2 chloride, serum [...] 11 .6-14.8 platelet count 308 10^3/MM^3 10*3/mm3 484-787 4217/02/04 erythrocyte (RBC) count 3.66 10^6/MM^3 10*6/mm3 4.04-5.4 8 hemoglobin, blood 11.7 g/dL 12.0-16.0 hematocrit, blood 35.6 % 36.0-46.0 mean corpuscular volume, RBC 97 fL 80-97 mean corpuscular hemoglobin, RBC 31.9 pg 27. 0-31.2 Lab Report: Comp. Metabolic Panel, Lipid Panel - Chemistry alanine aminotransferase (SGPT), serum 71 U/L 12-78 aspartate aminotransferase (SGOT), serum 34 U/L 15-37 calcium, serum 9.4 mg/dL 8.5-10.1 bilirubin, serum, total 0.40 mg/dL 0.00-1.00 cholesterol, serum 405 mg/dL 373-558 5793/11/23 triglyceride, serum, fasting 709 mg/dL 30-200 HDL cholesterol, serum 53 mg/dL 32-96 LDL cholesterol, serum 210 mg/dL 0-130 carbon dioxide, venous blood 32.4 mmol/L 21.0-32 .0 sodium, serum 138 mmol/L 442-174 2835/11/23 creatinine, serum 1.71 mg/dL 0.55-1.30 urea nitrogen, [...] Panel - Chemistry sodium, serum 141 mmol/L 253-624 9044/08/08 urea nitrogen, blood 30 mg/dL 7-18 calcium, serum 9.8 mg/dL 8.5-10.1 potassium, serum 4.9 mmol/L 3.5-5.2 chloride, serum 101 mmol/L 98-107 carbon dioxide, venous blood 34.1 mmol/L 21.0-32 .0 creatinine, serum 1.98 mg/dL 0.55-1.30 blood glucose 193 mg/dL 65-110 Office Visit: Medication refill - Chemis try cholesterol, target level 200 mg/dL LDL target level 70 mg/dL HDL cholesterol, serum, target level 40 mg/dL triglyceride, target level 150 mg/dL Encounters Code Encounter Date Provider Facility CPT-02585 Level 4 Est. Patient 11:34:17 CDT Baltazar Childers MD [facility] CPT-66038 Level 3 Est. Patient 16:40:40 CDT Baltazar Childers MD [facility] CPT-40650 Level 4 Est. Patient 10:41:24 CDT Baltazar Childers MD [facility] CPT-11308 Level 4 Est. Patient 16:01:48 CDT Baltazar Childers MD [facility] CPT-31475 Level 4 Est. Patient 16:54:07 BOILERMAKER LOFTSMAN Baltazar Childers MD [facility] CPT-93940 Level 4 Est. Patient 15:42:12 CDT Baltazar Childers MD [facility] CPT-26683 Level 4 Est. Patient 11:29:55 CDT Baltazar Childers MD [facility] CPT-11766 Level 4 Est. Patient 14:15:19 CDT Baltazar Childers MD [facility] CPT-45355 Level 4 Est. Patient 12:20:13 CDT Baltazar Childers MD [facility] CPT-01472 Level 4 Est. Patient 14:52:45 BOILERMAKER LOFTSMAN Baltazar Childers MD [facility] CPT-24711 Level 4 Est. Patient 14:18:34 BOILERMAKER LOFTSMAN Baltazar Childers MD [facility] CPT-35037 Level 4 Est. Patient 15:18:29 CDT Baltazar Childers MD [facility] CPT-57415 Level 3 Est. Patient 12:45:34 CDT Baltazar Childers MD [facility] CPT-59894 Level 3 Est. Patient 10:10:11 CDT Baltazar Childers MD [facility] CPT-53925 Level 3 Est. Patient 14:07:50 CDT Baltazar Childers MD [facility] CPT-35196 Level 4 Est. Patient 12:26:10 BOILERMAKER LOFTSMAN Baltazar Childers MD [facility] CPT-72260 Level 4 Est. Patient 14:45:38 CDT Baltazar Childers MD [facility] CPT-11111 Level 4 New Patient 12:30:48 CDT Baltazar hinton MD [facility] Procedures Code Procedure Name Date Entry Date Standard Desc ription CPT-49180 Renal Panel - LAB USE ONLY 17:39:20 CDT 201 10/31/07 CPT-42351 CBC - LAB USE ONLY 17:39:20 CDT CPT-08415 Venipuncture Draw Fee 17:39:20 CDT CPT-45807 Venipuncture Draw Fee 14:33:30 CDT CPT-95363 Renal Panel - LAB USE ONLY 14:33:30 CDT 201 10/31/07 CPT-21920 CBC - LAB USE ONLY 14:33:29 CDT CPT-76996 Venipuncture Draw Fee 14:50:21 BOILERMAKER LOFTSMAN CPT-68635 Immunization Single Admin 17:35:35 CDT 2014 CPT-14937 Fluzone Quadrivalent preservative free ( >=3yrs.) 17:35:35 CDT CPT-56852 Venipuncture Draw Fee 12:10:27 BOILERMAKER LOFTSMAN CPT-10600 Fluzone Quadrivalent Intramuscular Suspe nsion 0.5 ML 10:49:13 CDT CPT-54144 First Vx Component - Ix admi n via ID IM or jet inj without physician counseling 15:17:19 BOILERMAKER LOFTSMAN CPT-03738 Pneumovax 15:17:19 BOILERMAKER LOFTSMAN CPT-82913 Pneumovax 14:52:45 BOILERMAKER LOFTSMAN CPT-19838 Venipuncture Draw Fee 14:06:30 BOILERMAKER LOFTSMAN CPT-000 Give Appropriate Flu Vaccine 14:18:34 BOILERMAKER LOFTSMAN 2 CPT-95848 Administration single or combination vac cine inc oral 14:46:00 BOILERMAKER LOFTSMAN CPT-10784 Influenza split virus > age 3 14:46:00 BOILERMAKER LOFTSMAN CPT-OV Office Visit 19:13:16 CDT CPT-09167 Zostavax 18:41:56 CDT CPT-51260 Administration single or combination vac cine inc oral 12:56:39 CDT CPT-75976 Zoster Vaccine (Zostavax) 12:56:39 CDT 2012 CPT-46456 Venipuncture Draw Fee 10:58:57 CDT CPT-03006 Sono pelvis non OB uterus ovaries cervix 17:45:04 CDT CPT-75292 Sono retroperitoneal complete kidneys an d bladder 17:14:36 CDT CPT-OV Office Visit 14:59:38 BOILERMAKER LOFTSMAN CPT-J1070 Depo Testosterone 100 mg 14:50:13 CDT 03/05 CPT-69269 Abx/Therapy Injection 14:50:13 CDT CPT-08453 Administration single or combination vac cine inc oral 14:34:43 CDT CPT-59929 Influenza split virus > age 3 14:34:43 CDT CPT-J1070 Depo Testosterone 100 mg 17:37:13 CDT 01/11 CPT-93617 Abx/Therapy Injection 17:37:13 CDT CPT-96839 Venipuncture Draw Fee 16:30:13 CDT CPT-62557 Venipuncture Draw Fee 16:29:43 CDT CPT-J1070 Depo Testosterone 100 mg 14:45:38 CDT 01/11
--- OUTSIDE RECORDS SUMMARY | 2019-10-27 13:14 | XMS REPORT | Clinical Summary ---
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 Benign neoplasm of colon PERIPHERAL NEUROPATHY 356.9 [...] ronary atherosclerosis of unspecified type of vessel, nulato or graft OTH NONSPC ABN FINDNG RAD&OTH [...] a day as needed 2 NAPROXEN SODIUM 41959917113 No Longer Active Baltazar Childers MD Active ATORVASTATIN CALCIUM 20 MG ORAL TABS Take 1 tab daily ATORVASTATIN CALCIUM 61633787119 Active Kelly Iraheta LPN Active FUROSEMIDE 40 MG TABS Take one by mouth daily FUROSEMIDE 28962370550 Active Baltazar Childers MD Active LISINOPRIL 20 MG TABS Take one by mouth daily at bedtime LISINOPRIL 04184830375 Active Baltazar Childers MD Active ONETOUCH ULTRA BLUE STRP Test twice a day GLUCO SE BLOOD 94614325006 No Longer Active Baltazar Childers MD Active TRUEPLUS LANCETS 33G MISC Test twice a day LANCET S 80045206733 Active Baltazar Childers MD Active TRUEDRAW LANCING DEVICE MISC Test twice a day L ANCET DEVICES 45937188754 Active Baltazar Childers MD Active TRUETRACK TEST STRP Test twice a day GLUCOSE BLOO D 11517300866 Active Baltazar Childers MD Active TRUETRACK BLOOD GLUCOSE W/DEVICE KIT Test twice a day BLOOD GLUCOSE MONITORING SUPPL 75284755090 Active Baltazar Childers MD Activ e HYDROCODONE-ACETAMINOPHEN 7.5-325 MG TABS Take 1 tab every 6-8 hour s PRN HYDROCODONE-ACETAMINOPHEN 26793796621 Active Baltazar Childers MD Active NORTRIPTYLINE HCL 50 MG CAPS 1 every night for neuropathy 4 NORTRIPTYLINE HCL 65301397542 Active Baltazar Childers MD Acti ve GABAPENTIN 300 MG CAPS 1 three times a day GABAPE NTIN 25225816149 Active Kelly Iraheta LPN Active GABAPENTIN 300 MG CAPS 1 po qd x 2 days, then 1 po BID x 2 d ays, then 1 po TID GABAPENTIN 90333310568 No Longer Active Baltazar silverman MD Active TRAMADOL HCL 50 MG TABS 1 twice a day as needed for pain TRAMADOL HCL 52808034603 Active Baltazar Childers MD Active NAPROXEN 500 MG TABS 1 tablet by mouth twice daily NAPROXEN 32621136022 No Longer Active Baltazar Childers MD Active PROAIR HFA 108 (90 BASE) MCG/ACT AERS 2 puffs four times a d ay as needed ALBUTEROL SULFATE 84308821772 Active Baltazar Childers MD Active DEPO-TESTOSTERONE 200 MG/ML OIL as directed RUFINO TOSTERONE CYPIONATE 04192404945 No Longer Active Baltazar Childers MD Active LIPITOR 20 MG TABS Take one by mouth daily in evening ATORVASTATIN CALCIUM 19696695208 No Longer Active Baltazar Childers MD Activ e CRESTOR 10 MG TABS 1 by mouth every day R OSUVASTATIN CALCIUM 87193900739 No Longer Active Baltazar Childers MD Activ e PHENTERMINE HCL 37.5 MG TABS Take one by mouth daily 2 PHENTERMINE HCL 92532481177 No Longer Active Baltazar Childers MD Activ e ROBAXIN-750 750 MG TABS Take one by mouth daily ME THOCARBAMOL 77654911684 Active Baltazar Childers MD Active TIZANIDINE HCL 4 MG TABS 1 daily as needed for muscle spasm 2011 TIZANIDINE HCL 79503265245 No Longer Active Dawna Salazar RN Active [id number]-[id number] 50-325-40 MG TABS 1 four time s a day as needed for heacache [id number] 88847990089 Active Baltazar Childers MD Active SUMATRIPTAN SUCCINATE 100 MG TABS 1 tablet by mouth at onset of migraine as needed SUMATRIPTAN SUCCINATE 83507311450 Active Melody Paez Active LORATADINE 10 MG TABS Take one by mouth daily LORATADINE 26339893641 Active Baltazar Childers MD Active OMEPRAZOLE 20 MG CPDR Take one by mouth daily OMEPRAZOLE 88355636413 Active Baltazar Childers MD Active HYDROXYZINE HCL 25 MG TABS Take one by mouth daily HYDROXYZINE HCL 90090167564 Active Baltazar Childers MD Active GLIPIZIDE 10 MG TABS 1 tablet by mouth twice daily GLIPIZIDE 57402554998 Active Baltazar Childers MD Active ALPRAZOLAM 1 MG TABS 1 tablet by mouth daily at bedtime for restles s leg ALPRAZOLAM 38220078471 Active Baltazar Childers MD Active METFORMIN HCL 1000 MG TABS Take one by mouth twice daily METFORMIN HCL 91354539850 Active Baltazar Childers MD Active TIZANIDINE HCL 4 MG TABS 1 daily as needed for muscle spasm 2011 TIZANIDINE HCL 4 MG TABS 170572 TIZANIDINE HCL Inactiv e PHENTERMINE HCL 37.5 MG TABS Take one by mouth daily 2 PHENTERMINE HCL 37.5 MG TABS 714479 PHENTERMINE HCL Inactive CRESTOR 10 MG TABS 1 by mouth every day C RESTOR 10 MG TABS ROSUVASTATIN CALCIUM Inactive LIPITOR 20 MG TABS Take one by mouth daily in evening LIPITOR 20 MG TABS 393528 ATORVASTATIN CALCIUM Inactive DEPO-TESTOSTERONE 200 MG/ML OIL as directed 8 DEPO-TESTOSTERONE 200 MG/ML OIL 378440 TESTOSTERONE CYPIONATE Inactive NAPROXEN 500 MG TABS 1 tablet by mouth twice daily 201 07/27/22 NAPROXEN 500 MG TABS 150135 NAPROXEN Inactive GABAPENTIN 300 MG CAPS 1 po qd x 2 days, then 1 po BID x 2 d ays, then 1 po TID GABAPENTIN 300 MG CAPS 506131 GABAPENTIN Inact amie ONETOUCH ULTRA BLUE STRP Test twice a day ONETOUCH ULTRA BLUE STRP GLUCOSE BLOOD Inactive NAPROXEN SODIUM 220 MG ORAL TABS 1 three times a day as needed 2 NAPROXEN SODIUM 220 MG ORAL TABS 651519 NAPROXEN SODIUM Inactive Immunizations Vaccine Administration Date Value Standard Floyd cription pneumococcal immunization administered Pneumovax 23 [CVX33] pneumococcal polysaccharide vaccine, 23 valent Seasonal influenza vaccine, injectable, containing preservative, for > 3 years old (Afluria, FluLaval, Fluzone, Fluvirin, Fluarix, Agriflu(>= 18 yo)) Fluzone (>3 yrs.) [[id number]] Influenza, seasonal, inject able Seasonal influenza vaccine, injectable, containing preservative, for > 3 years old (Afluria, FluLaval, Fluzone, Fluvirin, Fluarix, Agriflu(>= 18 yo)) Fluzone (>3 yrs.) [NYX044] Influenza, seasonal, inject able Vital Signs Date [...] - Chem istry sodium, serum 140 mmol/L 082-424 3340/05/05 potassium, serum 4.9 mmol/L 3.5-5.2 chloride, serum 99 mmol/L 98-107 carbon dioxide, venous blood 34.3 mmol/L 21.0-32 .0 blood glucose 132 mg/dL 65-110 calcium, serum 10.1 mg/dL 8.5-10.1 urea nitrogen, blood 23 mg/dL 7-18 creatinine, serum 2.00 mg/dL 0.60-1.30 Lab Report: CBC, Renal Panel - Chemistry sodium, serum 139 mmol/L 612-586 4271/01/20 potassium, serum 5.3 mmol/L 3.5-5.2 chloride, serum [...] Panel - Chemistry sodium, serum 138 mmol/L 242-649 4092/11/23 carbon dioxide, venous blood 32.4 mmol/L 21.0-32 .0 potassium, serum 5.7 mmol/L 3.5-5.2 chloride, serum 98 mmol/L 98-107 blood glucose 136 mg/dL 65-110 urea nitrogen, blood 18 mg/dL 7-18 creatinine, serum 1.71 mg/dL 0.55-1.30 alanine aminotransferase (SGPT), serum 71 U/L 12-78 aspartate aminotransferase (SGOT), serum 34 U/L 15-37 calcium, serum 9.4 mg/dL 8.5-10.1 bilirubin, serum, total 0.40 mg/dL 0.00-1.00 cholesterol, serum 405 mg/dL 965-218 5819/11/23 triglyceride, serum, fasting 709 mg/dL 30-200 HDL [...] mg/dL Encounters Code Encounter Date Provider Facility CPT-22045 Level 4 Est. Patient 16:54:07 CANOE BUILDER Baltazar Childers MD [facility] CPT-77414 Level 4 Est. Patient 15:42:12 CDT Baltazar Childers MD [facility] CPT-88962 Level 4 Est. Patient 11:29:55 CDT Baltazar Childers MD [facility] CPT-25941 Level 4 Est. Patient 14:15:19 CDT Baltazar Childers MD [facility] CPT-39774 Level 4 Est. Patient 12:20:13 CDT Baltazar Childers MD [facility] CPT-04732 Level 4 Est. Patient 14:52:45 CANOE BUILDER Baltazar Childers MD [facility] CPT-65690 Level 4 Est. Patient 14:18:34 CANOE BUILDER Baltazar Childers MD [facility] CPT-49471 Level 4 Est. Patient 15:18:29 CDT Baltazar Childers MD [facility] CPT-95551 Level 3 Est. Patient 12:45:34 CDT Baltazar Childers MD [facility] CPT-49457 Level 3 Est. Patient 10:10:11 CDT Baltazar Childers MD [facility] CPT-03411 Level 3 Est. Patient 14:07:50 CDT Baltazar Childers MD [facility] CPT-38733 Level 4 Est. Patient 12:26:10 CANOE BUILDER Baltazar Childers MD [facility] CPT-03159 Level 4 Est. Patient 14:45:38 CDT Baltazar Childers MD [facility] CPT-49200 Level 4 New Patient 12:30:48 CDT Baltazar hinton MD [facility] Procedures Code Procedure Name Date Entry Date Standard Desc ription CPT-59402 Immunization Single Admin 17:35:35 CDT 2014 CPT-55039 Fluzone Quadrivalent preservative free ( >=3yrs.) 17:35:35 CDT CPT-91373 Venipuncture Draw Fee 12:10:27 CANOE BUILDER CPT-65459 Fluzone Quadrivalent Intramuscular Suspe nsion 0.5 ML 10:49:13 CDT CPT-57766 First Vx Component - Ix admi n via ID IM or jet inj without physician counseling 15:17:19 CANOE BUILDER CPT-50691 Pneumovax 23 15:17:19 CANOE BUILDER CPT-10405 Pneumovax 14:52:45 CANOE BUILDER CPT-91963 Venipuncture Draw Fee 14:06:30 CANOE BUILDER CPT-000 Give Appropriate Flu Vaccine 14:18:34 CANOE BUILDER 2 CPT-31558 Administration single or combination vac cine inc oral 14:46:00 CANOE BUILDER CPT-80142 Influenza split virus > age 3 14:46:00 CANOE BUILDER CPT-OV Office Visit 19:13:16 CDT CPT-05694 Zostavax 18:41:56 CDT CPT-90543 Administration single or combination vac cine inc oral 12:56:39 CDT CPT-69569 Zoster Vaccine (Zostavax) 12:56:39 CDT 2012 CPT-49789 Venipuncture Draw Fee 10:58:57 CDT CPT-58814 Sono pelvis non OB uterus ovaries cervix 17:45:04 CDT CPT-71820 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
--- OUTSIDE RECORDS SUMMARY | 2019-10-27 13:14 | XMS REPORT | Clinical Summary ---
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 Benign neoplasm of colon PERIPHERAL NEUROPATHY [...] RAD&OTH EXM BODY STRUCTURE 793.99 11/08 Active Jsesy Ruiz Other nonspecific (a bnormal) findings on [...] 1 tablet daily for 4 days AZITHROMYCIN 27465951199 Active Baltazar Wayne Active LANTUS SOLOSTAR 100 UNIT/ML SC SOPN 30 units SC daily INSULIN GLARGINE 62339655783 Active Baltazar Childers MD Active AMLODIPINE BESYLATE 5 MG ORAL TABS 1 tab daily for HTN AMLODIPINE BESYLATE 09314150592 Active Baltazar Childers MD Active SYNTHROID 0.1 MG TAB 1 tablet by mouth daily LE VOTHYROXINE SODIUM 14242828900 Active Baltazar Childers MD Active GLIPIZIDE 10 MG TAB take 2 tablets twice daily GLIPIZIDE 73419965497 Active Baltazar Childers MD Active SUCRALFATE 1 GM TABS 1 four times a day to coat the stomach 2015 SUCRALFATE 67965839621 No Longer Active Baltazar Childers MD Active PEN NEEDLES 31G X 6 MM MISC use 1 daily INSULIN PEN NEEDLE 83696392210 Active Gaot Rae MD Active TOUJEO SOLOSTAR 300 UNIT/ML SC SOPN 10 units SC daily INSULIN GLARGINE 87531528262 No Longer Active Martita ARGUETA Active NAPROXEN SODIUM 220 MG ORAL TABS 1 three times a day as needed 2 NAPROXEN SODIUM 44111527052 No Longer Active Baltazar Childers MD Active ATORVASTATIN CALCIUM 20 MG ORAL TABS Take 1 tab daily ATORVASTATIN CALCIUM 73642533360 Active Baltazar Childers MD Active FUROSEMIDE 40 MG TABS Take one by mouth daily FUROSEMIDE 79435099999 Active Baltazar Childers MD Active LISINOPRIL 20 MG TABS Take one by mouth daily at bedtime LISINOPRIL 28542431865 No Longer Active Baltazar Childers MD Active ONETOUCH ULTRA BLUE STRP Test twice a day GLUCO SE BLOOD 62533562119 No Longer Active Baltazar Childers MD Active TRUEPLUS LANCETS 33G MISC Test twice a day LANCET S 12165162548 Active KENDALL Juarez Active TRUEDRAW LANCING DEVICE MISC Test twice a day L ANCET DEVICES 47336874384 Active Baltazar Childers MD Active TRUETRACK TEST STRP Test twice a day GLUCOSE BLOO D 45429036490 Active KENDALL Juarez Active TRUETRACK BLOOD GLUCOSE W/DEVICE KIT Test twice a day BLOOD GLUCOSE MONITORING SUPPL 55518569756 Active Baltazar Childers MD Activ e HYDROCODONE-ACETAMINOPHEN 7.5-325 MG TABS Take 1 tab every 6-8 hour s PRN HYDROCODONE-ACETAMINOPHEN 87177208029 Active Baltazar Childers MD Active NORTRIPTYLINE HCL 50 MG CAPS 1 every night for neuropathy 4 NORTRIPTYLINE HCL 45075998270 Active Baltazar Childers MD Acti ve GABAPENTIN 300 MG CAPS 1 three times a day GABAPE NTIN 79329947653 Active Baltazar Childers MD Active GABAPENTIN 300 MG CAPS 1 po qd x 2 days, then 1 po BID x 2 d ays, then 1 po TID GABAPENTIN 46446235656 No Longer Active Baltazar silverman MD Active TRAMADOL HCL 50 MG TABS 1 twice a day as needed for pain TRAMADOL HCL 48370216423 Active Baltazar Childers MD Active NAPROXEN 500 MG TABS 1 tablet by mouth twice daily NAPROXEN 47531993107 No Longer Active Baltazar Childers MD Active PROAIR HFA 108 (90 BASE) MCG/ACT AERS 2 puffs four times a d ay as needed ALBUTEROL SULFATE 94813612304 Active Baltazar Childers MD Active DEPO-TESTOSTERONE 200 MG/ML OIL as directed RUFINO TOSTERONE CYPIONATE 87478597956 No Longer Active Baltazar Childers MD Active LIPITOR 20 MG TABS Take one by mouth daily in evening ATORVASTATIN CALCIUM 51539677522 No Longer Active Baltazar Childers MD Activ e CRESTOR 10 MG TABS 1 by mouth every day R OSUVASTATIN CALCIUM 36588135272 No Longer Active Baltazar Childers MD Activ e PHENTERMINE HCL 37.5 MG TABS Take one by mouth daily 2 PHENTERMINE HCL 40787533110 No Longer Active Baltazar Childers MD Activ e ROBAXIN-750 750 MG TABS Take one by mouth daily ME THOCARBAMOL 41089605337 Active Baltazar Childers MD Active TIZANIDINE HCL 4 MG TABS 1 daily as needed for muscle spasm 2011 TIZANIDINE HCL 57740460188 No Longer Active Dawnatung Salazar RN Active [id number]-QGHQ-[id number] 50-325-40 MG TABS 1 four time s a day as needed for heacache [id number] 55346009450 Active Bethrenetta Carr KENDALL Active SUMATRIPTAN SUCCINATE 100 MG TABS 1 tablet by mouth at onset of migraine as needed SUMATRIPTAN SUCCINATE 44360234582 Active Baltazar bynum MD Active LORATADINE 10 MG TABS Take one by mouth daily LORATADINE 55699900784 Active Baltazar Childers MD Active OMEPRAZOLE 20 MG CPDR Take one by mouth daily OMEPRAZOLE 61478660212 Active Baltazar Childers MD Active HYDROXYZINE HCL 25 MG TABS Take one by mouth daily HYDROXYZINE HCL 15529084687 Active Baltazar Childers MD Active ALPRAZOLAM 1 MG TABS 1 tablet by mouth daily at bedtime for restles s leg ALPRAZOLAM 22643664079 Active Baltazar Childers MD Active METFORMIN HCL 1000 MG TABS Take one by mouth twice daily METFORMIN HCL 27321717211 Active Baltazar Childers MD Active TIZANIDINE HCL 4 MG TABS 1 daily as needed for muscle spasm 2011 TIZANIDINE HCL 4 MG TABS 331510 TIZANIDINE HCL Inactiv e PHENTERMINE HCL 37.5 MG TABS Take one by mouth daily 2 PHENTERMINE HCL 37.5 MG TABS 230041 PHENTERMINE HCL Inactive CRESTOR 10 MG TABS 1 by mouth every day C RESTOR 10 MG TABS 115703 ROSUVASTATIN CALCIUM Inactive LIPITOR 20 MG TABS Take one by mouth daily in evening LIPITOR 20 MG TABS 735747 ATORVASTATIN CALCIUM Inactive DEPO-TESTOSTERONE 200 MG/ML OIL as directed 8 DEPO-TESTOSTERONE 200 MG/ML OIL 023007 TESTOSTERONE CYPIONATE Inactive NAPROXEN 500 MG TABS 1 tablet by mouth twice daily 201 07/27/22 NAPROXEN 500 MG TABS 571933 NAPROXEN Inactive GABAPENTIN 300 MG CAPS 1 po qd x 2 days, then 1 po BID x 2 d ays, then 1 po TID GABAPENTIN 300 MG [facility] 818077 GABAPENTIN Inact amie ONETOUCH ULTRA BLUE STRP Test twice a day ONETOUCH ULTRA BLUE STRP GLUCOSE BLOOD Inactive NAPROXEN SODIUM 220 MG ORAL TABS 1 three times a day as needed 2 NAPROXEN SODIUM 220 MG ORAL TABS 747567 NAPROXEN SODIUM Inactive TOUJEO SOLOSTAR 300 UNIT/ML SC SOPN 10 units SC daily TOUJEO SOLOSTAR 300 UNIT/ML SC SOPN INSULIN GLARGINE Inac tive SUCRALFATE 1 GM TABS 1 four times a day to coat the stomach 2015 SUCRALFATE 1 GM TABS 491386 SUCRALFATE Inactive Immunizations Vaccine Administration Date Value Standard Floyd cription pneumococcal immunization administered Pneumovax 23 [CVX33] pneumococcal polysaccharide vaccine, 23 valent Seasonal influenza vaccine, injectable, containing preservative, for > 3 years old (Afluria, FluLaval, Fluzone, Fluvirin, Fluarix, Agriflu(>= 18 yo)) Fluzone (>3 yrs.) [CJW971] Influenza, seasonal, inject able Seasonal influenza vaccine, injectable, containing preservative, for > 3 years old (Afluria, FluLaval, Fluzone, Fluvirin, Fluarix, Agriflu(>= 18 yo)) Fluzone (>3 yrs.) [LGN798] Influenza, seasonal, inject able Vital Signs Date [...] - Chem istry sodium, serum 139 mmol/L 470-219 6316/10/03 potassium, serum 4.7 mmol/L 3.5-5.2 chloride, serum 98 mmol/L 98-107 carbon dioxide, venous blood 28.7 mmol/L 21.0-32 .0 blood glucose 218 mg/dL 65-110 calcium, serum 9.8 mg/dL 8.5-10.1 urea nitrogen, blood 19 mg/dL 7-18 creatinine, serum 1.68 mg/dL 0.60-1.30 Lab Report: Basic Metabolic Panel, HGBA1 C - Chemistry sodium, serum 143 mmol/L 755-796 3865/06/19 potassium, serum 5.9 mmol/L 3.5-5.2 chloride, serum 105 mmol/L 98-107 carbon dioxide, venous blood 30.2 mmol/L 21.0-32 .0 blood glucose 189 mg/dL 65-110 calcium, serum 9.7 mg/dL 8.5-10.1 urea nitrogen, blood 37 mg/dL 7-18 creatinine, serum 2.11 mg/dL 0.55-1.30 hemoglobin A1C, blood, as % of total hemoglobin 8.2 % 4.3-6.0 Lab Report: CBC, Renal Panel - Chemistry sodium, serum 142 mmol/L 973-436 3080/08/11 potassium, serum 4.8 mmol/L 3.5-5.2 chloride, serum [...] Panel - Chemistry sodium, serum 143 mmol/L 530-738 6484/12/19 carbon dioxide, venous blood 32.5 mmol/L 21.0-32 .0 potassium, serum 4.9 mmol/L 3.5-5.2 chloride, serum 101 mmol/L 98-107 blood glucose 129 mg/dL 65-110 urea nitrogen, blood 18 mg/dL 7-18 creatinine, serum 1.79 mg/dL 0.55-1.30 alanine aminotransferase (SGPT), serum 34 U/L 12-78 aspartate aminotransferase (SGOT), serum 26 U/L 15-37 calcium, serum 8.9 mg/dL 8.5-10.1 bilirubin, serum, total 0.30 mg/dL 0.00-1.00 cholesterol, serum 214 mg/dL 973-127 7720/12/19 triglyceride, serum, fasting 351 mg/dL 30-200 HDL [...] 4.3-6.0 Encounters Code Encounter Date Provider Facility CPT-85274 Level 4 Est. Patient 12:25:11 CDT Baltazar Childers MD [facility]-13975 Level 4 Est. Patient 14:22:31 CDT Baltazar Childers MD [facility]-49193 Level 4 Est. Patient 15:44:38 CDT Shonnajean Parker APRN [facility]-18572 Level 4 Est. Patient 11:34:17 CDT Baltazar Childers MD [facility]-92049 Level 3 Est. Patient 16:40:40 CDT Baltazar Childers MD [facility]-92855 Level 4 Est. Patient 10:41:24 CDT Baltazar Childers MD [facility]-10771 Level 4 Est. Patient 16:01:48 CDT Baltazar Childers MD [facility]-45219 Level 4 Est. Patient 16:54:07 SNOW MAKER Baltazar Childers MD [facility] Level 4 Est. Patient 15:42:12 CDT Baltazar Childers MD [facility] CPT-65199 Level 4 Est. Patient 11:29:55 CDT Baltazar Childers MD [facility]-37651 Level 4 Est. Patient 14:15:19 CDT Baltazar Childers MD [facility]-28368 Level 4 Est. Patient 12:20:13 CDT Baltazar Childers MD [facility]-86606 Level 4 Est. Patient 14:52:45 SNOW MAKER Baltazar Childers MD [facility]-40956 Level 4 Est. Patient 14:18:34 SNOW MAKER Baltazar Childers MD [facility]-65176 Level 4 Est. Patient 15:18:29 CDT Baltazar Childers MD [facility]-80049 Level 3 Est. Patient 12:45:34 CDT Baltazar Childers MD [facility] CPT-45782 Level 3 Est. Patient 10:10:11 CDT Baltazar Childers MD [facility] CPT-60265 Level 3 Est. Patient 14:07:50 CDT Baltazar Childers MD [facility] CPT-19622 Level 4 Est. Patient 12:26:10 SNOW MAKER Baltazar Childers MD [facility] CPT-01650 Level 4 Est. Patient 14:45:38 CDT Baltazar Childers MD [facility] CPT-05897 Level 4 New Patient 12:30:48 CDT Baltazar hinton MD [facility] Procedures Code Procedure Name Date Entry Date Standard Desc ription CPT-40140 First Vx - Ix admin via ID I M or jet injects without counseling by physician 13:08:59 CDT CPT-22283 Fluzone Quadrivalent Intramuscular Suspe nsion 0.5 ML 13:08:59 CDT CPT-30760 Venipuncture Draw Fee 12:04:12 CDT CPT-08960 Lipid - LAB USE ONLY 17:39:15 SNOW MAKER 9 CPT-02499 HGBA1C - LAB USE ONLY 17:39:15 SNOW MAKER CPT-26669 CMP - LAB USE ONLY 17:39:14 SNOW MAKER CPT-88567 Venipuncture Draw Fee 17:39:14 SNOW MAKER CPT-69698 First Vx - Ix admin via ID I M or jet injects without counseling by physician 16:55:17 SNOW MAKER CPT-08447 Fluzone Quadrivalent Intramuscular Suspe nsion 0.5 ML 16:55:17 SNOW MAKER CPT-62120 Renal Panel - LAB USE ONLY 17:39:20 CDT 201 10/31/07 CPT-77533 CBC - LAB USE ONLY 17:39:20 CDT CPT-33430 Venipuncture Draw Fee 17:39:20 CDT CPT-01598 Venipuncture Draw Fee 14:33:30 CDT CPT-42983 Renal Panel - LAB USE ONLY 14:33:30 CDT 201 10/31/07 CPT-08495 CBC - LAB USE ONLY 14:33:29 CDT CPT-64970 Venipuncture Draw Fee 14:50:21 SNOW MAKER CPT-67418 Immunization Single Admin 17:35:35 CDT 2014 CPT-86270 Fluzone Quadrivalent preservative free ( >=3yrs.) 17:35:35 CDT CPT-02589 Venipuncture Draw Fee 12:10:27 SNOW MAKER CPT-95471 Fluzone Quadrivalent Intramuscular Suspe nsion 0.5 ML 10:49:13 CDT CPT-49931 First Vx Component - Ix admi n via ID IM or jet inj without physician counseling 15:17:19 SNOW MAKER CPT-99576 Pneumovax 23 15:17:19 SNOW MAKER CPT-84749 Pneumovax 14:52:45 SNOW MAKER CPT-26754 Venipuncture Draw Fee 14:06:30 SNOW MAKER CPT-000 Give Appropriate Flu Vaccine 14:18:34 SNOW MAKER 2 CPT-12664 Administration single or combination vac cine inc oral 14:46:00 SNOW MAKER CPT-17435 Influenza split virus > age 3 14:46:00 SNOW MAKER CPT-OV Office Visit 19:13:16 CDT CPT-63554 Zostavax 18:41:56 CDT CPT-10998 Administration single or combination vac cine inc oral 12:56:39 CDT CPT-50425 Zoster Vaccine (Zostavax) 12:56:39 CDT 2012 CPT-74778 Venipuncture Draw Fee 10:58:57 CDT CPT-72122 Sono pelvis non OB uterus ovaries cervix 17:45:04 CDT CPT-82458 Sono retroperitoneal complete kidneys an d bladder 17:14:36 CDT CPT-OV Office Visit 14:59:38 SNOW MAKER CPT-J1070 Depo Testosterone 100 mg 14:50:13 CDT 03/05 CPT-34799 Abx/Therapy Injection 14:50:13 CDT CPT-94938 Administration single or combination vac cine inc oral 14:34:43 CDT CPT-14522 Influenza split virus > age 3 14:34:43 CDT CPT-J1070 Depo Testosterone 100 mg 17:37:13 CDT 01/11 CPT-74935 Abx/Therapy Injection 17:37:13 CDT CPT-25107 Venipuncture Draw Fee 16:30:13 CDT CPT-35450 Venipuncture Draw Fee 16:29:43 CDT CPT-J1070 Depo Testosterone 100 mg 14:45:38 CDT 01/11
--- OUTSIDE RECORDS SUMMARY | 2019-10-27 13:14 | XMS REPORT | Clinical Summary ---
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 AGRONOMY ADVISOR Benign neoplasm of colon PERIPHERAL NEUROPATHY 356.9 [...] 1 tab daily for HTN AMLODIPINE BESYLATE 26865948950 Active Ct Ledesma PHYSIOTHERAPY PRACTICE MANAGER Active SYNTHROID 0.1 MG TAB 1 tablet by mouth daily LE VOTHYROXINE SODIUM 04426174537 Active Shonna Parker APRN Active GLIPIZIDE 10 MG TAB take 2 tablets twice daily GLIPIZIDE 68192104708 Active Baltazar Childers MD Active SUCRALFATE 1 GM TABS 1 four times a day to coat the stomach 2015 SUCRALFATE 24213230102 No Longer Active Baltazar Childers MD Active PEN NEEDLES 31G X 6 MM MISC use 1 daily INSULIN PEN NEEDLE 90911794529 Active Gato Rae MD Active TOUJEO SOLOSTAR 300 UNIT/ML SC SOPN 10 units SC daily INSULIN GLARGINE 82516636650 No Longer Active Martita Herbert ARGUETA Active LANTUS SOLOSTAR 100 UNIT/ML SC SOPN 10 units SC daily INSULIN GLARGINE 55921546270 Active KENDALL Juarez Active NAPROXEN SODIUM 220 MG ORAL TABS 1 three times a day as needed 2 NAPROXEN SODIUM 36751271896 No Longer Active Baltazar Childers MD Active ATORVASTATIN CALCIUM 20 MG ORAL TABS Take 1 tab daily ATORVASTATIN CALCIUM 09867086355 Active Baltazar Childers MD Active FUROSEMIDE 40 MG TABS Take one by mouth daily FUROSEMIDE 58163672160 Active Baltazar Childers MD Active LISINOPRIL 20 MG TABS Take one by mouth daily at bedtime LISINOPRIL 38351948898 No Longer Active Baltazar Childers MD Active ONETOUCH ULTRA BLUE STRP Test twice a day GLUCO SE BLOOD 11312822552 No Longer Active Baltazar Childers MD Active TRUEPLUS LANCETS 33G MISC Test twice a day LANCET S 20572897805 Active KENDALL Juarez Active TRUEDRAW LANCING DEVICE MISC Test twice a day L ANCET DEVICES 04903854715 Active Baltazar Childers MD Active TRUETRACK TEST STRP Test twice a day GLUCOSE BLOO D 24543440777 Active KENDALL Juarez Active TRUETRACK BLOOD GLUCOSE W/DEVICE KIT Test twice a day BLOOD GLUCOSE MONITORING SUPPL 40589428829 Active Baltazar Childers MD Activ e HYDROCODONE-ACETAMINOPHEN 7.5-325 MG TABS Take 1 tab every 6-8 hour s PRN HYDROCODONE-ACETAMINOPHEN 88694803063 Active Baltazar Childers MD Active NORTRIPTYLINE HCL 50 MG CAPS 1 every night for neuropathy 4 NORTRIPTYLINE HCL 31818414374 Active Baltazar Childers MD Acti ve GABAPENTIN 300 MG CAPS 1 three times a day GABAPE NTIN 44624579773 Active Baltazar Childers MD Active GABAPENTIN 300 MG CAPS 1 po qd x 2 days, then 1 po BID x 2 d ays, then 1 po TID GABAPENTIN 03161601180 No Longer Active Baltazar silverman MD Active TRAMADOL HCL 50 MG TABS 1 twice a day as needed for pain TRAMADOL HCL 80977605421 Active Baltazar Childers MD Active NAPROXEN 500 MG TABS 1 tablet by mouth twice daily NAPROXEN 04615435683 No Longer Active Baltazar Childers MD Active PROAIR HFA 108 (90 BASE) MCG/ACT AERS 2 puffs four times a d ay as needed ALBUTEROL SULFATE 86125268616 Active Baltazar Childers MD Active DEPO-TESTOSTERONE 200 MG/ML OIL as directed RUFINO TOSTERONE CYPIONATE 78538906052 No Longer Active Baltazar Childers MD Active LIPITOR 20 MG TABS Take one by mouth daily in evening ATORVASTATIN CALCIUM 57038728270 No Longer Active Baltazar Childers MD Activ e CRESTOR 10 MG TABS 1 by mouth every day R OSUVASTATIN CALCIUM 75269124931 No Longer Active Baltazar Childers MD Activ e PHENTERMINE HCL 37.5 MG TABS Take one by mouth daily 2 PHENTERMINE HCL 33748533422 No Longer Active Baltazar Childers MD Activ e ROBAXIN-750 750 MG TABS Take one by mouth daily ME THOCARBAMOL 33445853044 Active Baltazar Childers MD Active TIZANIDINE HCL 4 MG TABS 1 daily as needed for muscle spasm 2011 TIZANIDINE HCL 60733288676 No Longer Active Dawna Salazar RN Active AOMIKRUAYM-QBII-FAHQOIBZ 50-325-40 MG TABS 1 four time s a day as needed for heacache ZRCOMRWXSR-XEAW-BVCVELSS 58889552072 Active Baltazar Childers MD Active SUMATRIPTAN SUCCINATE 100 MG TABS 1 tablet by mouth at onset of migraine as needed SUMATRIPTAN SUCCINATE 36843713252 Active Shonna richey APRN Active LORATADINE 10 MG TABS Take one by mouth daily LORATADINE 21930348171 Active Bethrenetta Carr KENDALL Active OMEPRAZOLE 20 MG CPDR Take one by mouth daily OMEPRAZOLE 91197403125 Active Baltazar Childers MD Active HYDROXYZINE HCL 25 MG TABS Take one by mouth daily HYDROXYZINE HCL 64602105106 Active Baltazar Childers MD Active ALPRAZOLAM 1 MG TABS 1 tablet by mouth daily at bedtime for restles s leg ALPRAZOLAM 78690827519 Active Baltazar Childers MD Active METFORMIN HCL 1000 MG TABS Take one by mouth twice daily METFORMIN HCL 16643106578 Active Baltazar Childers MD Active TIZANIDINE HCL 4 MG TABS 1 daily as needed for muscle spasm 2011 TIZANIDINE HCL 4 MG TABS 346824 TIZANIDINE HCL Inactiv e PHENTERMINE HCL 37.5 MG TABS Take one by mouth daily 2 PHENTERMINE HCL 37.5 MG TABS 162171 PHENTERMINE HCL Inactive CRESTOR 10 MG TABS 1 by mouth every day C RESTOR 10 MG TABS 582012 ROSUVASTATIN CALCIUM Inactive LIPITOR 20 MG TABS Take one by mouth daily in evening LIPITOR 20 MG TABS 795538 ATORVASTATIN CALCIUM Inactive DEPO-TESTOSTERONE 200 MG/ML OIL as directed 8 DEPO-TESTOSTERONE 200 MG/ML OIL 405373 TESTOSTERONE CYPIONATE Inactive NAPROXEN 500 MG TABS 1 tablet by mouth twice daily 201 07/27/22 NAPROXEN 500 MG TABS 263482 NAPROXEN Inactive GABAPENTIN 300 MG CAPS 1 po qd x 2 days, then 1 po BID x 2 d ays, then 1 po TID GABAPENTIN 300 MG CAPS 771048 GABAPENTIN Inact amie ONETOUCH ULTRA BLUE STRP Test twice a day ONETOUCH ULTRA BLUE STRP GLUCOSE BLOOD Inactive NAPROXEN SODIUM 220 MG ORAL TABS 1 three times a day as needed 2 NAPROXEN SODIUM 220 MG ORAL TABS 767498 NAPROXEN SODIUM Inactive TOUJEO SOLOSTAR 300 UNIT/ML SC SOPN 10 units SC daily TOUJEO SOLOSTAR 300 UNIT/ML SC SOPN INSULIN GLARGINE Inac tive SUCRALFATE 1 GM TABS 1 four times a day to coat the stomach 2015 SUCRALFATE 1 GM TABS 210414 SUCRALFATE Inactive Immunizations Vaccine Administration Date Value Standard Floyd cription pneumococcal immunization administered Pneumovax 23 [CVX33] pneumococcal polysaccharide vaccine, 23 valent Seasonal influenza vaccine, injectable, containing preservative, for > 3 years old (Afluria, FluLaval, Fluzone, Fluvirin, Fluarix, Agriflu(>= 18 yo)) Fluzone (>3 yrs.) [DMX203] Influenza, seasonal, inject able Seasonal influenza vaccine, injectable, containing preservative, for > 3 years old (Afluria, FluLaval, Fluzone, Fluvirin, Fluarix, Agriflu(>= 18 yo)) Fluzone (>3 yrs.) [PSH531] Influenza, seasonal, inject able Vital Signs Date [...] C - Chemistry sodium, serum 143 mmol/L 533-124 7943/06/19 potassium, serum 5.9 mmol/L 3.5-5.2 chloride, serum [...] Panel - Chemistry sodium, serum 143 mmol/L 420-950 2956/12/19 carbon dioxide, venous blood 32.5 mmol/L 21.0-32 .0 potassium, serum 4.9 mmol/L 3.5-5.2 chloride, serum 101 mmol/L 98-107 blood glucose 129 mg/dL 65-110 urea nitrogen, blood 18 mg/dL 7-18 creatinine, serum 1.79 mg/dL 0.55-1.30 alanine aminotransferase (SGPT), serum 34 U/L 12-78 aspartate aminotransferase (SGOT), serum 26 U/L 15-37 calcium, serum 8.9 mg/dL 8.5-10.1 bilirubin, serum, total 0.30 mg/dL 0.00-1.00 cholesterol, serum 214 mg/dL 244-309 2706/12/19 triglyceride, serum, fasting 351 mg/dL 30-200 HDL [...] Panel - Chemistry sodium, serum 141 mmol/L 088-040 0014/08/08 potassium, serum 4.9 mmol/L 3.5-5.2 chloride, serum 101 mmol/L 98-107 carbon dioxide, venous blood 34.1 mmol/L 21.0-32 .0 creatinine, serum 1.98 mg/dL 0.55-1.30 blood glucose 193 mg/dL 65-110 urea nitrogen, blood 30 mg/dL 7-18 calcium, serum 9.8 mg/dL 8.5-10.1 Encounters Code Encounter Date Provider Facility CPT-34701 Level 4 Est. Patient 14:22:31 CDT Baltazar Childers MD [facility] CPT-38168 Level 4 Est. Patient 15:44:38 [facility] Level 4 Est. Patient 11:34:17 CDT Baltazar Childers MD [facility] CPT-16607 Level 3 Est. Patient 16:40:40 CDT Baltazar Childers MD [facility] CPT-80928 Level 4 Est. Patient 10:41:24 CDT Baltazar Childers MD -[id number] Level 4 Est. Patient 16:01:48 CDT Baltazar Childers MD [facility] CPT-27564 Level 4 Est. Patient 16:54:07 ACCOUNTING ASSOCIATE Baltazar Childers MD [facility] CPT-36506 Level 4 Est. Patient 15:42:12 CDT Baltazar Childers MD [facility] CPT-51942 Level 4 Est. Patient 11:29:55 CDT Baltazar Childers MD [facility] CPT-83416 Level 4 Est. Patient 14:15:19 CDT Baltazar Childers MD [facility] CPT-89702 Level 4 Est. Patient 12:20:13 CDT Baltazar Childers MD [facility] CPT-38573 Level 4 Est. Patient 14:52:45 ACCOUNTING ASSOCIATE Baltazar Childers MD [facility] CPT-89690 Level 4 Est. Patient 14:18:34 ACCOUNTING ASSOCIATE Baltazar Childers MD [facility] CPT-05825 Level 4 Est. Patient 15:18:29 CDT Baltazar Childers MD [facility] CPT-34028 Level 3 Est. Patient 12:45:34 CDT Baltazar Childers MD [facility] CPT-14808 Level 3 Est. Patient 10:10:11 CDT Baltazar Childers MD [facility] CPT-69450 Level 3 Est. Patient 14:07:50 CDT Baltazar Childers MD [facility] CPT-26370 Level 4 Est. Patient 12:26:10 ACCOUNTING ASSOCIATE Baltazar Childers MD [facility] CPT-16337 Level 4 Est. Patient 14:45:38 CDT Baltazar Childers MD [facility] CPT-91240 Level 4 New Patient 12:30:48 CDT Baltazar hinton MD [facility] Procedures Code Procedure Name Date Entry Date Standard Desc ription CPT-69093 Lipid - LAB USE ONLY 17:39:15 ACCOUNTING ASSOCIATE 9 CPT-84318 HGBA1C - LAB USE ONLY 17:39:15 ACCOUNTING ASSOCIATE CPT-98466 CMP - LAB USE ONLY 17:39:14 ACCOUNTING ASSOCIATE CPT-55052 Venipuncture Draw Fee 17:39:14 ACCOUNTING ASSOCIATE CPT-21687 First Vx - Ix admin via ID I M or jet injects without counseling by physician 16:55:17 ACCOUNTING ASSOCIATE CPT-14178 Fluzone Quadrivalent Intramuscular Suspe nsion 0.5 ML 16:55:17 ACCOUNTING ASSOCIATE CPT-94735 Renal Panel - LAB USE ONLY 17:39:20 CDT 201 10/31/07 CPT-38182 CBC - LAB USE ONLY 17:39:20 CDT CPT-07003 Venipuncture Draw Fee 17:39:20 CDT CPT-15361 Venipuncture Draw Fee 14:33:30 CDT CPT-04969 Renal Panel - LAB USE ONLY 14:33:30 CDT 201 10/31/07 CPT-92221 CBC - LAB USE ONLY 14:33:29 CDT CPT-77925 Venipuncture Draw Fee 14:50:21 ACCOUNTING ASSOCIATE CPT-16810 Immunization Single Admin 17:35:35 CDT 2014 CPT-70077 Fluzone Quadrivalent preservative free ( >=3yrs.) 17:35:35 CDT CPT-18682 Venipuncture Draw Fee 12:10:27 ACCOUNTING ASSOCIATE CPT-07495 Fluzone Quadrivalent Intramuscular Suspe nsion 0.5 ML 10:49:13 CDT CPT-05855 First Vx Component - Ix admi n via ID IM or jet inj without physician counseling 15:17:19 ACCOUNTING ASSOCIATE CPT-86375 Pneumovax 23 15:17:19 ACCOUNTING ASSOCIATE CPT-25666 Pneumovax 14:52:45 ACCOUNTING ASSOCIATE CPT-34760 Venipuncture Draw Fee 14:06:30 ACCOUNTING ASSOCIATE CPT-000 Give Appropriate Flu Vaccine 14:18:34 ACCOUNTING ASSOCIATE 2 CPT-14815 Administration single or combination vac cine inc oral 14:46:00 ACCOUNTING ASSOCIATE CPT-70109 Influenza split virus > age 3 14:46:00 ACCOUNTING ASSOCIATE CPT-OV Office Visit 19:13:16 CDT CPT-52527 Zostavax 18:41:56 CDT CPT-68762 Administration single or combination vac cine inc oral 12:56:39 CDT CPT-51111 Zoster Vaccine (Zostavax) 12:56:39 CDT 2012 CPT-64065 Venipuncture Draw Fee 10:58:57 CDT CPT-19065 Sono pelvis non OB uterus ovaries cervix 17:45:04 CDT CPT-71225 Sono retroperitoneal complete kidneys an d bladder 17:14:36 CDT CPT-OV Office Visit 14:59:38 ACCOUNTING ASSOCIATE CPT-J1070 Depo Testosterone 100 mg 14:50:13 CDT 03/05 CPT-84410 Abx/Therapy Injection 14:50:13 CDT CPT-90283 Administration single or combination vac cine inc oral 14:34:43 CDT CPT-60582 Influenza split virus > age 3 14:34:43 CDT CPT-J1070 Depo Testosterone 100 mg 17:37:13 CDT 01/11 CPT-09459 Abx/Therapy Injection 17:37:13 CDT CPT-39296 Venipuncture Draw Fee 16:30:13 CDT CPT-65567 Venipuncture Draw Fee 16:29:43 CDT CPT-J1070 Depo Testosterone 100 mg 14:45:38 CDT 01/11
--- OUTSIDE RECORDS SUMMARY | 2019-10-27 13:15 | XMS REPORT | Clinical Summary ---
Author Author Admin, Elba [employer] Address Unknown Phone Unavailable Allergies, Adverse Reactions, 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 NATUROPATHIC DOCTOR Benign neoplasm of colon PERIPHERAL NEUROPATHY 356.9 [...] three times a day 201 12/03/26 GABAPENTIN [id number] No Longer Active Baltazar Childers MD Activ e LISINOPRIL 20 MG ORAL TABLET 1 tablet by mouth daily at night 2016 LISINOPRIL 27316132914 Active Baltazar Childers MD Active ZITHROMAX Z-ISAIAS 250 MG ORAL TABLET Take two tablets to day and then 1 tablet daily for 4 days AZITHROMYCIN 44742247251 No Longer A ctive Baltazar Childers MD Active LANTUS SOLOSTAR 100 UNIT/ML SUBCUTANEOUS SOLUTION PEN- INJECTOR 30 units SC daily INSULIN GLARGINE 65727277579 Active Baltazar Childers MD Active AMLODIPINE BESYLATE 5 MG ORAL TABLET 1 tab daily for HTN AMLODIPINE BESYLATE 97438723345 Active Baltazar Childers MD Active SYNTHROID 100 MCG ORAL TABLET 1 tablet by mouth daily LEVOTHYROXINE SODIUM 73199817322 Active Baltazar Childers MD Active GLIPIZIDE 10 MG ORAL TABLET take 2 tablets twice daily GLIPIZIDE 08464631554 Active Baltazar Childers MD Active SUCRALFATE 1 GM ORAL TABLET 1 four times a day to coat the stoma ch SUCRALFATE 03600928358 No Longer Active Baltazar Childers MD Active PEN NEEDLES 31G X 6 MM use 1 daily INSULIN PEN NE EDLE 72417024907 Active KENDALL Juarez Active CELINA POWERSOSTNAKITA 300 UNIT/ML SUBCUTANEOUS SOLUTION PEN- INJECTOR 10 units SC daily INSULIN GLARGINE 48944429402 No Longer Active Rola Godinez RMA Active NAPROXEN SODIUM 220 MG ORAL TABLET 1 three times a day as needed NAPROXEN SODIUM 42759312580 No Longer Active Baltazar Childers MD Active ATORVASTATIN CALCIUM 20 MG ORAL TABLET Take 1 tab daily ATORVASTATIN CALCIUM 84201764858 Active Baltazar Childers MD A ctive FUROSEMIDE 40 MG ORAL TABLET Take one by mouth daily FUROSEMIDE 49253991960 Active Jessy Arellano LPN Active LISINOPRIL 20 MG ORAL TABLET Take one by mouth daily at bedtime LISINOPRIL 64948526088 No Longer Active Baltazar Childers MD Active ONETOUCH ULTRA BLUE IN VITRO STRIP Test twice a day 07/11/11 GLUCOSE BLOOD 04906784990 No Longer Active Baltazar Childers MD Acti ve TRUEPLUS LANCETS 33G Test twice a day LANCETS 7868674 9630 Active KENDALL Juarez Active TRUEDRAW LANCING DEVICE Test twice a day LANCET DEVICES 71860833414 Active Baltazar Childers MD Active TRUETRACK TEST IN VITRO STRIP Test twice a day GLUCOSE BLOOD 75040662957 Active KENDALL Juarez Active TRUETRACK BLOOD GLUCOSE w/Device KIT Test twice a day BLOOD GLUCOSE MONITORING SUPPL 15985974330 Active Baltazar Childers MD Activ e HYDROCODONE-ACETAMINOPHEN 7.5-325 MG ORAL TABLET Take 1 tab every 6-8 hours PRN HYDROCODONE-ACETAMINOPHEN 04938922862 Active Baltazar Nickerson MD Active NORTRIPTYLINE HCL 50 MG ORAL CAPSULE 1 every night for neuropathy 2 NORTRIPTYLINE HCL 89537058986 Active Baltazar Childers MD Acti ve GABAPENTIN 300 MG ORAL CAPSULE 1 po qd x 2 days, then 1 po BID x 2 days, then 1 po TID GABAPENTIN 02827187029 No Longer Active Baltazar Childers MD Active TRAMADOL HCL 50 MG ORAL TABLET 1 twice a day as needed for pain 201 07/27/28 TRAMADOL HCL 27162286387 Active Baltazar Childers MD Active NAPROXEN 500 MG ORAL TABLET 1 tablet by mouth twice daily NAPROXEN 23014449258 No Longer Active Baltazar Childers MD Active PROAIR HFA 108 (90 Base) MCG/ACT INHALATION AEROSOL SO LUTION 2 puffs four times a day as needed ALBUTEROL SULFATE 81376939130 Active Paul Childers MD Active DEPO-TESTOSTERONE 200 MG/ML INTRAMUSCULAR SOLUTION as directed TESTOSTERONE CYPIONATE 87797408195 No Longer Active Baltazar Childers MD Active LIPITOR 20 MG ORAL TABLET Take one by mouth daily in evening ATORVASTATIN CALCIUM 49621635048 No Longer Active Baltazar Childers MD Active CRESTOR 10 MG ORAL TABLET 1 by mouth every day ROSUVASTATIN CALCIUM 94598786401 No Longer Active Baltazar Childers MD Active PHENTERMINE HCL 37.5 MG ORAL TABLET Take one by mouth daily PHENTERMINE HCL 05457566640 No Longer Active Baltazar Childers MD Ac tive ROBAXIN-750 750 MG ORAL TABLET Take one by mouth daily METHOCARBAMOL 63707630589 Active Baltazar Childers MD Active TIZANIDINE HCL 4 MG ORAL TABLET 1 daily as needed for muscle spa sm TIZANIDINE HCL 12445913243 No Longer Active Dawna Salazar RN Active [id number]-IXSI-[id number] 50-325-40 MG ORAL TABLET 1 fo ur times a day as needed for heacache [id number] 28988318162 Active Baltazar Childers MD Active SUMATRIPTAN SUCCINATE 100 MG ORAL TABLET 1 tablet by m outh at onset of migraine as needed SUMATRIPTAN SUCCINATE 72994707394 Active eBrtha Vazquez LPN Active LORATADINE 10 MG ORAL TABLET Take one by mouth daily LORATADINE 38913038569 Active Baltazar Childers MD Active OMEPRAZOLE 20 MG ORAL CAPSULE DELAYED RELEASE Take one by mouth jostin ly OMEPRAZOLE 27729512502 Active Baltazar Childers MD Active HYDROXYZINE HCL 25 MG ORAL TABLET Take one by mouth daily HYDROXYZINE HCL 36889393321 Active Baltazar Childers MD Active ALPRAZOLAM 1 MG ORAL TABLET 1 tablet [facility] ALPRAZOLAM 60314315602 Active Baltazar Childers MD Active METFORMIN HCL 1000 MG ORAL TABLET Take one by mouth twice daily METFORMIN HCL 74791378437 Active Baltazar Childers MD Active TIZANIDINE HCL 4 MG ORAL TABLET 1 daily as needed for muscle spa sm TIZANIDINE HCL 4 MG ORAL TABLET 088035 TIZANIDINE HCL Inactive PHENTERMINE HCL 37.5 MG ORAL TABLET Take one by mouth daily PHENTERMINE HCL 37.5 MG ORAL TABLET 750941 PHENTERMINE HCL Inac tive CRESTOR 10 MG ORAL TABLET 1 by mouth every day CRESTOR 10 MG ORAL TABLET 815467 ROSUVASTATIN CALCIUM Inactive LIPITOR 20 MG ORAL TABLET Take one by mouth daily in evening LIPITOR 20 MG ORAL TABLET 510079 ATORVASTATIN CALCIUM Inactive DEPO-TESTOSTERONE 200 MG/ML INTRAMUSCULAR SOLUTION as directed DEPO-TESTOSTERONE 200 MG/ML INTRAMUSCULAR SOLUTION 839143 RUFINO TOSTERONE CYPIONATE Inactive NAPROXEN 500 MG ORAL TABLET 1 tablet by mouth twice daily NAPROXEN 500 MG ORAL TABLET 913221 NAPROXEN Inactive GABAPENTIN 300 MG ORAL CAPSULE 1 po qd x 2 days, then 1 po BID x 2 days, then 1 po TID GABAPENTIN 300 MG ORAL CAPSULE 226834 GABAP ENTIN Inactive ONETOUCH ULTRA BLUE IN VITRO STRIP Test twice a day 07/11/11 ONETOUCH ULTRA BLUE IN VITRO STRIP GLUCOSE BLOOD Inact amie NAPROXEN SODIUM 220 MG ORAL TABLET 1 three times a day as needed NAPROXEN SODIUM 220 MG ORAL TABLET 921184 NAPROXEN SODI UM Inactive TOUJEO SOLOSTAR 300 UNIT/ML SUBCUTANEOUS SOLUTION PEN- INJECTOR 10 units SC daily TOUJEO SOLOSTAR 300 UNIT/ML SUBCUTANEOUS SOLUTION PEN-INJECTOR INSULIN GLARGINE Inactive SUCRALFATE 1 GM ORAL TABLET 1 four times a day to coat the stoma ch SUCRALFATE 1 GM ORAL TABLET 583755 SUCRALFATE Inac tive GABAPENTIN 300 MG ORAL CAPSULE 1 three times a day 201 12/03/26 GABAPENTIN 300 MG ORAL CAPSULE 784687 GABAPENTIN Inactive ZITHROMAX Z-ISAISA 250 MG ORAL TABLET Take two tablets to day and then 1 tablet daily for 4 days ZITHROMAX Z-ISAIAS 250 MG ORAL TAB LET 718152 AZITHROMYCIN Inactive Immunizations Vaccine Administration Date Value Standard Floyd cription pneumococcal immunization administered Pneumovax 23 [CVX33] pneumococcal polysaccharide vaccine, 23 valent Seasonal influenza vaccine, injectable, containing preservative, for > 3 years old (Afluria, FluLaval, Fluzone, Fluvirin, Fluarix, Agriflu(>= 18 yo)) Fluzone (>3 yrs.) [[id number]] Influenza, seasonal, inject able Seasonal influenza vaccine, injectable, containing preservative, for > 3 years old (Afluria, FluLaval, Fluzone, Fluvirin, Fluarix, Agriflu(>= 18 yo)) Fluzone (>3 yrs.) [[id number]] Influenza, seasonal, inject able Vital Signs Date [...] - Chem istry sodium, serum 139 mmol/L 440-960 3992/10/03 potassium, serum 4.7 mmol/L 3.5-5.2 chloride, serum 98 mmol/L 98-107 carbon dioxide, venous blood 28.7 mmol/L 21.0-32 .0 blood glucose 218 mg/dL 65-110 calcium, serum 9.8 mg/dL 8.5-10.1 urea nitrogen, blood 19 mg/dL 7-18 creatinine, serum 1.68 mg/dL 0.60-1.30 Lab Report: Basic Metabolic Panel, HGBA1 C - Chemistry sodium, serum 143 mmol/L 496-464 0217/06/19 potassium, serum 5.9 mmol/L 3.5-5.2 chloride, serum 105 mmol/L 98-107 carbon dioxide, venous blood 30.2 mmol/L 21.0-32 .0 blood glucose 189 mg/dL 65-110 calcium, serum 9.7 mg/dL 8.5-10.1 urea nitrogen, blood 37 mg/dL 7-18 creatinine, serum 2.11 mg/dL 0.55-1.30 hemoglobin A1C, blood, as % of total hemoglobin 8.2 % 4.3-6.0 Lab Report: CBC, Renal Panel - Chemistry sodium, serum 142 mmol/L 041-888 7127/08/11 potassium, serum 4.8 mmol/L 3.5-5.2 chloride, serum [...] 4.3-6.0 Encounters Code Encounter Date Provider Facility CPT-16782 Level 4 Est. Patient 16:21:19 PASTRY COOK HELPER Baltazar Childers MD [facility] CPT-69357 Level 4 Est. Patient 12:25:11 CDT Baltazar Childers MD [facility] CPT-50548 Level 4 Est. Patient 14:22:31 CDT Baltazar Childers MD [facility] CPT-10488 Level 4 Est. Patient 15:44:38 CDT Shonna Parker APRN [facility] CPT-91401 Level 4 Est. Patient 11:34:17 CDT Balatzar Childers MD [facility] CPT-45866 Level 3 Est. Patient 16:40:40 CDT Baltazar Childers MD [facility]-14315 Level 4 Est. Patient 10:41:24 CDT Baltazar Childers MD [facility]-77572 Level 4 Est. Patient 16:01:48 CDT Baltazar Childers MD [facility]-34692 Level 4 Est. Patient 16:54:07 PASTRY COOK HELPER Baltazar Childers MD [facility]-27080 Level 4 Est. Patient 15:42:12 CDT Baltazar Childers MD [facility] CPT-47408 Level 4 Est. Patient 11:29:55 CDT Baltazar Childers MD [facility]-57712 Level 4 Est. Patient 14:15:19 CDT Baltazar Childers MD [facility] CPT-81069 Level 4 Est. Patient 12:20:13 CDT Baltazar Childers MD [facility] CPT-22942 Level 4 Est. Patient 14:52:45 PASTRY COOK HELPER Baltazar Childers MD [facility]-38985 Level 4 Est. Patient 14:18:34 PASTRY COOK HELPER Baltazar Childers MD [facility] CPT-40591 Level 4 Est. Patient 15:18:29 CDT Baltazar Childers MD [facility] CPT-65986 Level 3 Est. Patient 12:45:34 CDT Baltazar Childers MD [facility]-81309 Level 3 Est. Patient 10:10:11 CDT Baltazar Childers MD [facility]-21891 Level 3 Est. Patient 14:07:50 CDT Baltazar Childers MD [facility]-70656 Level 4 Est. Patient 12:26:10 PASTRY COOK HELPER Baltazar Childers MD [facility] CPT-64773 Level 4 Est. Patient 14:45:38 CDT Baltazar Childers MD [facility] CPT-09998 Level 4 New Patient 12:30:48 CDT Baltazar hinton MD [facility] Procedures Code Procedure Name Date Entry Date Standard Desc ription CPT-65250 First Vx - Ix admin via ID I M or jet injects without counseling by physician 13:08:59 CDT CPT-01099 Fluzone Quadrivalent Intramuscular Suspe nsion 0.5 ML 13:08:59 CDT CPT-55412 Venipuncture Draw Fee 12:04:12 CDT CPT-20578 Lipid - LAB USE ONLY 17:39:15 PASTRY COOK HELPER 9 CPT-90697 HGBA1C - LAB USE ONLY 17:39:15 PASTRY COOK HELPER CPT-35888 CMP - LAB USE ONLY 17:39:14 PA[employer]Y COOK HELPER CPT-89001 Venipuncture Draw Fee 17:39:14 PASTRY COOK HELPER CPT-95956 First Vx - Ix admin via ID I M or jet injects without counseling by physician 16:55:17 PASTRY COOK HELPER CPT-33802 Fluzone Quadrivalent Intramuscular Suspe nsion 0.5 ML 16:55:17 PASTRY COOK HELPER CPT-09857 Renal Panel - LAB USE ONLY 17:39:20 CDT 201 10/31/07 CPT-20530 CBC - LAB USE ONLY 17:39:20 CDT CPT-10259 Venipuncture Draw Fee 17:39:20 CDT CPT-06358 Venipuncture Draw Fee 14:33:30 CDT CPT-32902 Renal Panel - LAB USE ONLY 14:33:30 CDT 201 10/31/07 CPT-97758 CBC - LAB USE ONLY 14:33:29 CDT CPT-45332 Venipuncture Draw Fee 14:50:21 PA[employer]Y COOK HELPER CPT-06951 Immunization Single Admin 17:35:35 CDT 2014 CPT-87085 Fluzone Quadrivalent preservative free ( >=3yrs.) 17:35:35 CDT CPT-03759 Venipuncture Draw Fee 12:10:27 PASTRY COOK HELPER CPT-58587 Fluzone Quadrivalent Intramuscular Suspe nsion 0.5 ML 10:49:13 CDT CPT-42219 First Vx Component - Ix admi n via ID IM or jet inj without physician counseling 15:17:19 PA[employer]Y COOK HELPER CPT-21300 Pneumovax 23 15:17:19 PASTRY COOK HELPER CPT-04133 Pneumovax 14:52:45 [employer]Y COOK HELPER CPT-03327 Venipuncture Draw Fee 14:06:30 PA[employer]Y COOK HELPER CPT-000 Give Appropriate Flu Vaccine 14:18:34 PASTRY COOK HELPER 2 CPT-17477 Administration single or combination vac cine inc oral 14:46:00 PA[employer]Y COOK HELPER CPT-91015 Influenza split virus > age 3 14:46:00 PA[employer]Y COOK HELPER CPT-OV Office Visit 19:13:16 CDT CPT-34288 Zostavax 18:41:56 CDT CPT-38448 Administration single or combination vac cine inc oral 12:56:39 CDT CPT-27843 Zoster Vaccine (Zostavax) 12:56:39 CDT 2012 CPT-61149 Venipuncture Draw Fee 10:58:57 CDT CPT-52781 Sono pelvis non OB uterus ovaries cervix 17:45:04 CDT CPT-76589 Sono retroperitoneal complete kidneys an d bladder 17:14:36 CDT CPT-OV Office Visit 14:59:38 PA[employer]Y COOK HELPER CPT-J1070 Depo Testosterone 100 mg 14:50:13 CDT 03/05 CPT-31518 Abx/Therapy Injection 14:50:13 CDT CPT-04624 Administration single or combination vac cine inc oral 14:34:43 CDT CPT-60051 Influenza split virus > age 3 14:34:43 CDT CPT-J1070 Depo Testosterone 100 mg 17:37:13 CDT 01/11 CPT-36947 Abx/Therapy Injection 17:37:13 CDT CPT-37804 Venipuncture Draw Fee 16:30:13 CDT CPT-43098 Venipuncture Draw Fee 16:29:43 CDT CPT-J1070 Depo Testosterone 100 mg 14:45:38 CDT 01/11
--- OUTSIDE RECORDS SUMMARY | 2019-10-27 13:15 | XMS REPORT | Clinical Summary ---
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 Benign neoplasm of colon PERIPHERAL NEUROPATHY [...] 1 tablet daily for 4 days AZITHROMYCIN [id number] No Longer Active Yousif Childers MD Active LANTUS SOLOSTAR 100 UNIT/ML SC SOPN 30 units SC daily INSULIN GLARGINE 75525498469 Active Baltazar Childers MD Active AMLODIPINE BESYLATE 5 MG ORAL TABS 1 tab daily for HTN AMLODIPINE BESYLATE 72422331031 Active Baltazar Childers MD Active SYNTHROID 0.1 MG TAB 1 tablet by mouth daily LE VOTHYROXINE SODIUM 92527787503 Active Baltazar Childers MD Active GLIPIZIDE 10 MG TAB take 2 tablets twice daily GLIPIZIDE 17836581468 Active Baltazar Childers MD Active SUCRALFATE 1 GM TABS 1 four times a day to coat the stomach 2015 SUCRALFATE [id number] No Longer Active Baltazar Childers MD Active PEN NEEDLES 31G X 6 MM MISC use 1 daily INSULIN PEN NEEDLE 40045598678 Active KENDALL Juarez Active TOUJEO SOLOSTAR 300 UNIT/ML SC SOPN 10 units SC daily INSULIN GLARGINE 54450289138 No Longer Active Martita ARGUETA Active NAPROXEN SODIUM 220 MG ORAL TABS 1 three times a day as needed 2 NAPROXEN SODIUM 28014433336 No Longer Active Baltazar Childers MD Active ATORVASTATIN CALCIUM 20 MG ORAL TABS Take 1 tab daily ATORVASTATIN CALCIUM 14779634107 Active Baltazar Childers MD Active FUROSEMIDE 40 MG TABS Take one by mouth daily FUROSEMIDE 75551776789 Active Baltazar Childers MD Active LISINOPRIL 20 MG TABS Take one by mouth daily at bedtime LISINOPRIL 65485323348 No Longer Active Baltazar Childers MD Active ONETOUCH ULTRA BLUE STRP Test twice a day GLUCO SE BLOOD 97046961804 No Longer Active Baltazar Childers MD Active TRUEPLUS LANCETS 33G MISC Test twice a day LANCET S 25710304250 Active KENDALL Juarez Active TRUEDRAW LANCING DEVICE MISC Test twice a day L ANCET DEVICES 23169510430 Active Baltazar Childers MD Active TRUETRACK TEST STRP Test twice a day GLUCOSE BLOO D 29339029024 Active KENDALL Juarez Active TRUETRACK BLOOD GLUCOSE W/DEVICE KIT Test twice a day BLOOD GLUCOSE MONITORING SUPPL 35595042586 Active Baltazar Childers MD Activ e HYDROCODONE-ACETAMINOPHEN 7.5-325 MG TABS Take 1 tab every 6-8 hour s PRN HYDROCODONE-ACETAMINOPHEN 62216564845 Active Baltazar Childers MD Active NORTRIPTYLINE HCL 50 MG CAPS 1 every night for neuropathy 4 NORTRIPTYLINE HCL 49539572268 Active Baltazar Childers MD Acti ve GABAPENTIN 300 MG CAPS 1 three times a day GABAPE NTIN 64132497977 Active Baltazar Childers MD Active GABAPENTIN 300 MG CAPS 1 po qd x 2 days, then 1 po BID x 2 d ays, then 1 po TID GABAPENTIN 48972469089 No Longer Active Baltazar silverman MD Active TRAMADOL HCL 50 MG TABS 1 twice a day as needed for pain TRAMADOL HCL 16166644672 Active Baltazar Childers MD Active NAPROXEN 500 MG TABS 1 tablet by mouth twice daily NAPROXEN 42811355831 No Longer Active Baltazar Childers MD Active PROAIR HFA 108 (90 BASE) MCG/ACT AERS 2 puffs four times a d ay as needed ALBUTEROL SULFATE 69413193897 Active Baltazar Childers MD Active DEPO-TESTOSTERONE 200 MG/ML OIL as directed RUFINO TOSTERONE CYPIONATE 54087377269 No Longer Active Baltazar Childers MD Active LIPITOR 20 MG TABS Take one by mouth daily in evening ATORVASTATIN CALCIUM 28851910130 No Longer Active Baltazar Childers MD Activ e CRESTOR 10 MG TABS 1 by mouth every day R OSUVASTATIN CALCIUM 32054270491 No Longer Active Baltazar Childers MD Activ e PHENTERMINE HCL 37.5 MG TABS Take one by mouth daily 2 PHENTERMINE HCL 15600337379 No Longer Active Baltazar Childers MD Activ e ROBAXIN-750 750 MG TABS Take one by mouth daily ME THOCARBAMOL 64985038749 Active Baltazar Childers MD Active TIZANIDINE HCL 4 MG TABS 1 daily as needed for muscle spasm 2011 TIZANIDINE HCL 27151461973 No Longer Active Dawna Salazar RN Active [id number] 50-325-40 MG TABS 1 four time s a day as needed for heacache XNAPRJYSNE-YVZG-LLRLQRLS 81058517062 Active KENDALL Juarez Active SUMATRIPTAN SUCCINATE 100 MG TABS 1 tablet by mouth at onset of migraine as needed SUMATRIPTAN SUCCINATE 48813811244 Active Baltazar bynum MD Active LORATADINE 10 MG TABS Take one by mouth daily LORATADINE 36932851946 Active Baltazar Childers MD Active OMEPRAZOLE 20 MG CPDR Take one by mouth daily OMEPRAZOLE 40074917976 Active Baltazar Childers MD Active HYDROXYZINE HCL 25 MG TABS Take one by mouth daily HYDROXYZINE HCL 50647763393 Active Baltazar Childers MD Active ALPRAZOLAM 1 MG TABS 1 tablet by mouth daily at bedtime for restles s leg ALPRAZOLAM 99804738648 Active Baltazar Childers MD Active METFORMIN HCL 1000 MG TABS Take one by mouth twice daily METFORMIN HCL 87074084712 Active Baltazar Childers MD Active TIZANIDINE HCL 4 MG TABS 1 daily as needed for muscle spasm 2011 TIZANIDINE HCL 4 MG TABS 200473 TIZANIDINE HCL Inactiv e PHENTERMINE HCL 37.5 MG TABS Take one by mouth daily 2 PHENTERMINE HCL 37.5 MG TABS 496662 PHENTERMINE HCL Inactive CRESTOR 10 MG TABS 1 by mouth every day C RESTOR 10 MG TABS 719007 ROSUVASTATIN CALCIUM Inactive LIPITOR 20 MG TABS Take one by mouth daily in evening LIPITOR 20 MG TABS 011732 ATORVASTATIN CALCIUM Inactive DEPO-TESTOSTERONE 200 MG/ML OIL as directed 8 DEPO-TESTOSTERONE 200 MG/ML OIL 897829 TESTOSTERONE CYPIONATE Inactive NAPROXEN 500 MG TABS 1 tablet by mouth twice daily 201 07/27/22 NAPROXEN 500 MG TABS 661039 NAPROXEN Inactive GABAPENTIN 300 MG CAPS 1 po qd x 2 days, then 1 po BID x 2 d ays, then 1 po TID GABAPENTIN 300 MG CAPS 636535 GABAPENTIN Inact amie ONETOUCH ULTRA BLUE STRP Test twice a day ONETOUCH ULTRA BLUE STRP GLUCOSE BLOOD Inactive NAPROXEN SODIUM 220 MG ORAL TABS 1 three times a day as needed 2 NAPROXEN SODIUM 220 MG ORAL TABS 605951 NAPROXEN SODIUM Inactive TOUJEO SOLOSTAR 300 UNIT/ML SC SOPN 10 units SC daily TOUJEO SOLOSTAR 300 UNIT/ML SC SOPN INSULIN GLARGINE Inac tive SUCRALFATE 1 GM TABS 1 four times a day to coat the stomach 2015 SUCRALFATE 1 GM TABS 308398 SUCRALFATE Inactive ZITHROMAX Z-ISAIAS 250 MG TABS Take two tablets today and then 1 tablet daily for 4 days ZITHROMAX Z-ISAIAS 250 MG TABS 707051 AZITHROM YCIN Inactive Immunizations Vaccine Administration Date Value Standard Floyd cription pneumococcal immunization administered Pneumovax 23 [CVX33] pneumococcal polysaccharide vaccine, 23 valent Seasonal influenza vaccine, injectable, containing preservative, for > 3 years old (Afluria, FluLaval, Fluzone, Fluvirin, Fluarix, Agriflu(>= 18 yo)) Fluzone (>3 yrs.) [YSH237] Influenza, seasonal, inject able Seasonal influenza vaccine, injectable, containing preservative, for > 3 years old (Afluria, FluLaval, Fluzone, Fluvirin, Fluarix, Agriflu(>= 18 yo)) Fluzone (>3 yrs.) [EOU198] Influenza, seasonal, inject able Vital Signs Date [...] - Chem istry sodium, serum 139 mmol/L 953-537 8792/10/03 potassium, serum 4.7 mmol/L 3.5-5.2 chloride, serum 98 mmol/L 98-107 carbon dioxide, venous blood 28.7 mmol/L 21.0-32 .0 blood glucose 218 mg/dL 65-110 calcium, serum 9.8 mg/dL 8.5-10.1 urea nitrogen, blood 19 mg/dL 7-18 creatinine, serum 1.68 mg/dL 0.60-1.30 Lab Report: Basic Metabolic Panel, HGBA1 C - Chemistry sodium, serum 143 mmol/L 232-551 2635/06/19 potassium, serum 5.9 mmol/L 3.5-5.2 chloride, serum 105 mmol/L 98-107 carbon dioxide, venous blood 30.2 mmol/L 21.0-32 .0 blood glucose 189 mg/dL 65-110 calcium, serum 9.7 mg/dL 8.5-10.1 urea nitrogen, blood 37 mg/dL 7-18 creatinine, serum 2.11 mg/dL 0.55-1.30 hemoglobin A1C, blood, as % of total hemoglobin 8.2 % 4.3-6.0 Lab Report: CBC, Renal Panel - Chemistry sodium, serum 142 mmol/L 564-337 2260/08/11 potassium, serum 4.8 mmol/L 3.5-5.2 chloride, serum [...] Panel - Chemistry sodium, serum 143 mmol/L 310-715 7507/12/19 carbon dioxide, venous blood 32.5 mmol/L 21.0-32 .0 potassium, serum 4.9 mmol/L 3.5-5.2 chloride, serum 101 mmol/L 98-107 blood glucose 129 mg/dL 65-110 urea nitrogen, blood 18 mg/dL 7-18 creatinine, serum 1.79 mg/dL 0.55-1.30 alanine aminotransferase (SGPT), serum 34 U/L 12-78 aspartate aminotransferase (SGOT), serum 26 U/L 15-37 calcium, serum 8.9 mg/dL 8.5-10.1 bilirubin, serum, total 0.30 mg/dL 0.00-1.00 cholesterol, serum 214 mg/dL 801-470 5421/12/19 triglyceride, serum, fasting 351 mg/dL 30-200 HDL [...] 4.3-6.0 Encounters Code Encounter Date Provider Facility CPT-42490 Level 4 Est. Patient 12:25:11 CDT Baltazar Childers MD [facility] CPT-95778 Level 4 Est. Patient 14:22:31 CDT Baltazar Childers MD [facility]-46575 Level 4 Est. Patient 15:44:38 CDT Shonna Parker APRN [facility]-89270 Level 4 Est. Patient 11:34:17 CDT Baltazar Childers MD [facility]-98508 Level 3 Est. Patient 16:40:40 CDT Baltazar Childers MD [facility]-28906 Level 4 Est. Patient 10:41:24 CDT Baltazar Childers MD [facility]-38293 Level 4 Est. Patient 16:01:48 CDT Baltazar Childers MD [facility]-79515 Level 4 Est. 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 Patient 15:42:12 CDT Baltazar Childers MD [facility] CPT-85868 Level 4 Est. Patient 11:29:55 CDT Baltazar Childers MD [facility] CPT-33341 Level 4 Est. Patient 14:15:19 CDT Baltazar Childers MD [facility]-36175 Level 4 Est. Patient 12:20:13 CDT Baltazar Childers MD [facility]-75413 Level 4 Est. 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 Patient 14:18:34 AUTO BRAKE TECHNICIAN Baltazar Childers MD [facility] CPT-57339 Level 4 Est. Patient 15:18:29 CDT Baltazar Childers MD [facility]-60142 Level 3 Est. Patient 12:45:34 CDT Baltazar Childers MD [facility]-28535 Level 3 Est. Patient 10:10:11 CDT Baltazar Childers MD [facility] CPT-38861 Level 3 Est. Patient 14:07:50 CDT Baltazar Childers MD [facility] CPT-37327 Level 4 Est. 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 Patient 14:45:38 CDT Baltazar Childers MD [facility] CPT-03311 Level 4 New Patient 12:30:48 CDT Baltazar hinton MD [facility] Procedures Code Procedure Name Date Entry Date Standard Desc ription CPT-99699 First Vx - Ix admin via ID I M or jet injects without counseling by physician 13:08:59 CDT CPT-42078 Fluzone Quadrivalent Intramuscular Suspe nsion 0.5 ML 13:08:59 CDT CPT-78910 Venipuncture Draw Fee 12:04:12 CDT CPT-93791 Lipid - LAB USE ONLY 17:39:15 AUTO BRAKE TECHNICIAN 9 CPT-20687 HGBA1C - LAB USE ONLY 17:39:15 AUTO BRAKE TECHNICIAN CPT-22080 CMP - LAB USE ONLY 17:39:14 AUTO BRAKE TECHNICIAN CPT-43236 Venipuncture Draw Fee 17:39:14 AUTO BRAKE TECHNICIAN CPT-34759 First Vx - Ix admin via ID I M or jet injects without counseling by physician 16:55:17 AUTO BRAKE TECHNICIAN CPT-46736 Fluzone Quadrivalent Intramuscular Suspe nsion 0.5 ML 16:55:17 AUTO BRAKE TECHNICIAN CPT-48900 Renal Panel - LAB USE ONLY 17:39:20 CDT 201 10/31/07 CPT-25757 CBC - LAB USE ONLY 17:39:20 CDT CPT-71751 Venipuncture Draw Fee 17:39:20 CDT CPT-14413 Venipuncture Draw Fee 14:33:30 CDT CPT-31386 Renal Panel - LAB USE ONLY 14:33:30 CDT 201 10/31/07 CPT-34879 CBC - LAB USE ONLY 14:33:29 CDT CPT-25690 Venipuncture Draw Fee 14:50:21 AUTO BRAKE TECHNICIAN CPT-18745 Immunization Single Admin 17:35:35 CDT 2014 CPT-84547 Fluzone Quadrivalent preservative free ( >=3yrs.) 17:35:35 CDT CPT-24431 Venipuncture Draw Fee 12:10:27 AUTO BRAKE TECHNICIAN CPT-37574 Fluzone Quadrivalent Intramuscular Suspe nsion 0.5 ML 10:49:13 CDT CPT-68012 First Vx Component - Ix admi n via ID IM or jet inj without physician counseling 15:17:19 AUTO BRAKE TECHNICIAN CPT-07305 Pneumovax 23 15:17:19 AUTO BRAKE TECHNICIAN CPT-02149 Pneumovax 14:52:45 AUTO BRAKE TECHNICIAN CPT-01173 Venipuncture Draw Fee 14:06:30 AUTO BRAKE TECHNICIAN CPT-000 Give Appropriate Flu Vaccine 14:18:34 AUTO BRAKE TECHNICIAN 2 CPT-35425 Administration single or combination vac cine inc oral 14:46:00 AUTO BRAKE TECHNICIAN CPT-87684 Influenza split virus > age 3 14:46:00 AUTO BRAKE TECHNICIAN CPT-OV Office Visit 19:13:16 CDT CPT-08756 Zostavax 18:41:56 CDT CPT-98699 Administration single or combination vac cine inc oral 12:56:39 CDT CPT-19224 Zoster Vaccine (Zostavax) 12:56:39 CDT 2012 CPT-60123 Venipuncture Draw Fee 10:58:57 CDT CPT-26868 Sono pelvis non OB uterus ovaries cervix 17:45:04 CDT CPT-74206 Sono retroperitoneal complete kidneys an d bladder 17:14:36 CDT CPT-OV Office Visit 14:59:38 AUTO BRAKE TECHNICIAN CPT-J1070 Depo Testosterone 100 mg 14:50:13 CDT 03/05 CPT-13380 Abx/Therapy Injection 14:50:13 CDT CPT-87774 Administration single or combination vac cine inc oral 14:34:43 CDT CPT-74161 Influenza split virus > age 3 14:34:43 CDT CPT-J1070 Depo Testosterone 100 mg 17:37:13 CDT 01/11 CPT-62500 Abx/Therapy Injection 17:37:13 CDT CPT-51452 Venipuncture Draw Fee 16:30:13 CDT CPT-83852 Venipuncture Draw Fee 16:29:43 CDT CPT-J1070 Depo Testosterone 100 mg 14:45:38 CDT 01/11
--- OUTSIDE RECORDS SUMMARY | 2019-10-27 13:15 | XMS REPORT | Clinical Summary ---
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 MANAGER Benign neoplasm of colon PERIPHERAL NEUROPATHY [...] ronary atherosclerosis of unspecified type of vessel, qawalangin or graft OTH NONSPC ABN FINDNG RAD&OTH [...] tablet by mouth daily LE VOTHYROXINE SODIUM 85244587651 Active Carina Tucker LPN Active GLIPIZIDE 10 MG TAB take 2 tablets twice daily GLIPIZIDE 12123946206 Active Carina Tucker LPN Active SUCRALFATE 1 GM TABS 1 four times a day to coat the stomach 2015 SUCRALFATE 22928236349 No Longer Active Baltazar Childers MD Active PEN NEEDLES 31G X 6 MM MISC use 1 daily INSULIN PEN NEEDLE 37788061995 Active Bella Suarez GOVERNMENT RELATIONS MANAGER Active TOURINKUO SOLOSTAR 300 UNIT/ML SC SOPN 10 units SC daily INSULIN GLARGINE 27473559221 No Longer Active Martita Godinez KENDALL Active LANTUS SOLOSTAR 100 UNIT/ML SC SOPN 10 units SC daily INSULIN GLARGINE 06698244022 Active Baltazar Childers MD Active NAPROXEN SODIUM 220 MG ORAL TABS 1 three times a day as needed 2 NAPROXEN SODIUM 79792422925 No Longer Active Baltazar Childers MD Active ATORVASTATIN CALCIUM 20 MG ORAL TABS Take 1 tab daily ATORVASTATIN CALCIUM 48760146644 Active Baltazar Childers MD Active FUROSEMIDE 40 MG TABS Take one by mouth daily FUROSEMIDE 16947650468 Active Baltazar Childers MD Active LISINOPRIL 20 MG TABS Take one by mouth daily at bedtime LISINOPRIL 69199002553 Active KENDALL Juarez Active ONETOUCH ULTRA BLUE STRP Test twice a day GLUCO SE BLOOD 81194382091 No Longer Active Baltazar Childers MD Active TRUEPLUS LANCETS 33G MISC Test twice a day LANCET S 60273051700 Active KENDALL Juarez Active TRUEDRAW LANCING DEVICE MISC Test twice a day L ANCET DEVICES 58489744049 Active Baltazar Childers MD Active TRUETRACK TEST STRP Test twice a day GLUCOSE BLOO D 51806359410 Active KENDALL Juarez Active TRUETRACK BLOOD GLUCOSE W/DEVICE KIT Test twice a day BLOOD GLUCOSE MONITORING SUPPL 74048102005 Active Baltazar Childers MD Activ e HYDROCODONE-ACETAMINOPHEN 7.5-325 MG TABS Take 1 tab every 6-8 hour s PRN HYDROCODONE-ACETAMINOPHEN 79015071039 Active Shonna Parker APRN Active NORTRIPTYLINE HCL 50 MG CAPS 1 every night for neuropathy 4 NORTRIPTYLINE HCL 16902953879 Active Baltazar Childers MD Acti ve GABAPENTIN 300 MG CAPS 1 three times a day GABAPE NTIN 13976024878 Active KENDALL Juarez Active GABAPENTIN 300 MG CAPS 1 po qd x 2 days, then 1 po BID x 2 d ays, then 1 po TID GABAPENTIN 36613363067 No Longer Active Baltazar silverman MD Active TRAMADOL HCL 50 MG TABS 1 twice a day as needed for pain TRAMADOL HCL 27120339165 Active Shonna Parker APRN Active NAPROXEN 500 MG TABS 1 tablet by mouth twice daily NAPROXEN 26998130000 No Longer Active Baltazar Childers MD Active PROAIR HFA 108 (90 BASE) MCG/ACT AERS 2 puffs four times a d ay as needed ALBUTEROL SULFATE 39833114335 Active KENDALL Juarez Active DEPO-TESTOSTERONE 200 MG/ML OIL as directed RUFINO TOSTERONE CYPIONATE 61953225849 No Longer Active Baltazar Childers MD Active LIPITOR 20 MG TABS Take one by mouth daily in evening ATORVASTATIN CALCIUM 28016263095 No Longer Active Baltazar Childers MD Activ e CRESTOR 10 MG TABS 1 by mouth every day R OSUVASTATIN CALCIUM 28407894544 No Longer Active aBltazar Childers MD Activ e PHENTERMINE HCL 37.5 MG TABS Take one by mouth daily 2 PHENTERMINE HCL 24630038848 No Longer Active Baltazar Childers MD Activ e ROBAXIN-750 750 MG TABS Take one by mouth daily ME THOCARBAMOL 62334684626 Active Baltazar Childers MD Active TIZANIDINE HCL 4 MG TABS 1 daily as needed for muscle spasm 2011 TIZANIDINE HCL 32382017851 No Longer Active Dawna Salazar RN Active MFMUWBDOVO-LZXC-SUNZNAHB 50-325-40 MG TABS 1 four time s a day as needed for heacache [id number] 68494635260 Active Shonna Parker APRN Active SUMATRIPTAN SUCCINATE 100 MG TABS 1 tablet by mouth at onset of migraine as needed SUMATRIPTAN SUCCINATE 35229032234 Active Shonna Lucianodian er GOVERNMENT RELATIONS MANAGER Active LORATADINE 10 MG TABS Take one by mouth daily LORATADINE 34549113421 Active Baltazar Childers MD Active OMEPRAZOLE 20 MG CPDR Take one by mouth daily OMEPRAZOLE 52735142953 Active KENDALL Juarez Active HYDROXYZINE HCL 25 MG TABS Take one by mouth daily HYDROXYZINE HCL 19298455588 Active Baltazar Childers MD Active ALPRAZOLAM 1 MG TABS 1 tablet by mouth daily at bedtime for restles s leg ALPRAZOLAM 75875355324 Active Baltazar Childers MD Active METFORMIN HCL 1000 MG TABS Take one by mouth twice daily METFORMIN HCL 20678302582 Active Baltazar Childers MD Active TIZANIDINE HCL 4 MG TABS 1 daily as needed for muscle spasm 2011 TIZANIDINE HCL 4 MG TABS 943137 TIZANIDINE HCL Inactiv e PHENTERMINE HCL 37.5 MG TABS Take one by mouth daily 2 PHENTERMINE HCL 37.5 MG TABS 000239 PHENTERMINE HCL Inactive CRESTOR 10 MG TABS 1 by mouth every day C RESTOR 10 MG TABS 979040 ROSUVASTATIN CALCIUM Inactive LIPITOR 20 MG TABS Take one by mouth daily in evening LIPITOR 20 MG TABS 018416 ATORVASTATIN CALCIUM Inactive DEPO-TESTOSTERONE 200 MG/ML OIL as directed 8 DEPO-TESTOSTERONE 200 MG/ML OIL 445637 TESTOSTERONE CYPIONATE Inactive NAPROXEN 500 MG TABS 1 tablet by mouth twice daily 201 07/27/22 NAPROXEN 500 MG TABS 089482 NAPROXEN Inactive GABAPENTIN 300 MG CAPS 1 po qd x 2 days, then 1 po BID x 2 d ays, then 1 po TID GABAPENTIN 300 MG CAPS 648990 GABAPENTIN Inact amie ONETOUCH ULTRA BLUE STRP Test twice a day ONETOUCH ULTRA BLUE STRP GLUCOSE BLOOD Inactive NAPROXEN SODIUM 220 MG ORAL TABS 1 three times a day as needed 2 NAPROXEN SODIUM 220 MG ORAL TABS 485465 NAPROXEN SODIUM Inactive TOUJEO SOLOSTAR 300 UNIT/ML SC SOPN 10 units SC daily TOUJEO SOLOSTAR 300 UNIT/ML SC SOPN INSULIN GLARGINE Inac tive SUCRALFATE 1 GM TABS 1 four times a day to coat the stomach 2015 SUCRALFATE 1 GM TABS 293183 SUCRALFATE Inactive Immunizations Vaccine Administration Date Value Standard Floyd cription pneumococcal immunization administered Pneumovax 23 [CVX33] pneumococcal polysaccharide vaccine, 23 valent Seasonal influenza vaccine, injectable, containing preservative, for > 3 years old (Afluria, FluLaval, Fluzone, Fluvirin, Fluarix, Agriflu(>= 18 yo)) Fluzone (>3 yrs.) [[id number]] Influenza, seasonal, inject able Seasonal influenza vaccine, injectable, containing preservative, for > 3 years old (Afluria, FluLaval, Fluzone, Fluvirin, Fluarix, Agriflu(>= 18 yo)) Fluzone (>3 yrs.) [[id number]] Influenza, seasonal, inject able Vital Signs Date [...] Panel - Chemistry sodium, serum 143 mmol/L 562-757 7876/12/19 carbon dioxide, venous blood 32.5 mmol/L 21.0-32 .0 potassium, serum 4.9 mmol/L 3.5-5.2 chloride, serum 101 mmol/L 98-107 blood glucose 129 mg/dL 65-110 urea nitrogen, blood 18 mg/dL 7-18 creatinine, serum 1.79 mg/dL 0.55-1.30 alanine aminotransferase (SGPT), serum 34 U/L 12-78 aspartate aminotransferase (SGOT), serum 26 U/L 15-37 calcium, serum 8.9 mg/dL 8.5-10.1 bilirubin, serum, total 0.30 mg/dL 0.00-1.00 cholesterol, serum 214 mg/dL 388-633 8005/12/19 triglyceride, serum, fasting 351 mg/dL 30-200 HDL [...] Panel - Chemistry sodium, serum 141 mmol/L 393-728 8481/08/08 urea nitrogen, blood 30 mg/dL 7-18 calcium, serum 9.8 mg/dL 8.5-10.1 potassium, serum 4.9 mmol/L 3.5-5.2 chloride, serum 101 mmol/L 98-107 carbon dioxide, venous blood 34.1 mmol/L 21.0-32 .0 creatinine, serum 1.98 mg/dL 0.55-1.30 blood glucose 193 mg/dL 65-110 Encounters Code Encounter Date Provider Facility CPT-53871 Level 4 Est. Patient 15:44:38 CDT Shonna Parker APRN [facility] CPT-43843 Level 4 Est. Patient 11:34:17 CDT Baltazar Childers MD [facility] CPT-14835 Level 3 Est. Patient 16:40:40 CDT Baltazar Childers MD [facility] CPT-71789 Level 4 Est. Patient 10:41:24 CDT Baltazar Childers MD [facility] CPT-11120 Level 4 Est. Patient 16:01:48 CDT Baltazar Childers MD [facility] CPT-23590 Level 4 Est. Patient 16:54:07 SUPPLY AND DISTRIBUTION MANAGER Baltazar Childers MD [facility] CPT-01454 Level 4 Est. Patient 15:42:12 CDT Baltazar Childers MD [facility] CPT-83719 Level 4 Est. Patient 11:29:55 CDT Baltazar Childers MD [facility] CPT-90910 Level 4 Est. Patient 14:15:19 CDT Baltazar Childers MD [facility] CPT-45270 Level 4 Est. Patient 12:20:13 CDT Baltazar Childers MD [facility] CPT-84518 Level 4 Est. Patient 14:52:45 SUPPLY AND DISTRIBUTION MANAGER Baltazar Childers MD [facility] CPT-24256 Level 4 Est. Patient 14:18:34 SUPPLY AND DISTRIBUTION MANAGER Baltazar Childers MD [facility] CPT-87134 Level 4 Est. Patient 15:18:29 CDT Baltazar Childers MD [facility] CPT-90315 Level 3 Est. Patient 12:45:34 CDT Baltazar Childers MD [facility] CPT-18611 Level 3 Est. Patient 10:10:11 CDT Baltazar Childers MD [facility] CPT-05813 Level 3 Est. Patient 14:07:50 CDT Baltazar Childers MD [facility] CPT-46606 Level 4 Est. Patient 12:26:10 SUPPLY AND DISTRIBUTION MANAGER Baltazar Childers MD [facility] CPT-32317 Level 4 Est. Patient 14:45:38 CDT Baltazar Childers MD [facility] CPT-88981 Level 4 New Patient 12:30:48 CDT Baltazar hinton MD [facility] Procedures Code Procedure Name Date Entry Date Standard Desc ription CPT-86774 Lipid - LAB USE ONLY 17:39:15 SUPPLY AND DISTRIBUTION MANAGER 9 CPT-25843 HGBA1C - LAB USE ONLY 17:39:15 SUPPLY AND DISTRIBUTION MANAGER CPT-41161 CMP - LAB USE ONLY 17:39:14 SUPPLY AND DISTRIBUTION MANAGER CPT-73172 Venipuncture Draw Fee 17:39:14 SUPPLY AND DISTRIBUTION MANAGER CPT-95078 First Vx - Ix admin via ID I M or jet injects without counseling by physician 16:55:17 SUPPLY AND DISTRIBUTION MANAGER CPT-14489 Fluzone Quadrivalent Intramuscular Suspe nsion 0.5 ML 16:55:17 SUPPLY AND DISTRIBUTION MANAGER CPT-77305 Renal Panel - LAB USE ONLY 17:39:20 CDT 201 10/31/07 CPT-56333 CBC - LAB USE ONLY 17:39:20 CDT CPT-24411 Venipuncture Draw Fee 17:39:20 CDT CPT-32904 Venipuncture Draw Fee 14:33:30 CDT CPT-26963 Renal Panel - LAB USE ONLY 14:33:30 CDT 201 10/31/07 CPT-15949 CBC - LAB USE ONLY 14:33:29 CDT CPT-49280 Venipuncture Draw Fee 14:50:21 SUPPLY AND DISTRIBUTION MANAGER CPT-16047 Immunization Single Admin 17:35:35 CDT 2014 CPT-07409 Fluzone Quadrivalent preservative free ( >=3yrs.) 17:35:35 CDT CPT-72430 Venipuncture Draw Fee 12:10:27 SUPPLY AND DISTRIBUTION MANAGER CPT-01184 Fluzone Quadrivalent Intramuscular Suspe nsion 0.5 ML 10:49:13 CDT CPT-46124 First Vx Component - Ix admi n via ID IM or jet inj without physician counseling 15:17:19 SUPPLY AND DISTRIBUTION MANAGER CPT-42874 Pneumovax 23 15:17:19 SUPPLY AND DISTRIBUTION MANAGER CPT-43058 Pneumovax 14:52:45 SUPPLY AND DISTRIBUTION MANAGER CPT-64062 Venipuncture Draw Fee 14:06:30 SUPPLY AND DISTRIBUTION MANAGER CPT-000 Give Appropriate Flu Vaccine 14:18:34 SUPPLY AND DISTRIBUTION MANAGER 2 CPT-91701 Administration single or combination vac cine inc oral 14:46:00 SUPPLY AND DISTRIBUTION MANAGER CPT-67174 Influenza split virus > age 3 14:46:00 SUPPLY AND DISTRIBUTION MANAGER CPT-OV Office Visit 19:13:16 CDT CPT-22885 Zostavax 18:41:56 CDT CPT-12972 Administration single or combination vac cine inc oral 12:56:39 CDT CPT-68244 Zoster Vaccine (Zostavax) 12:56:39 CDT 2012 CPT-82599 Venipuncture Draw Fee 10:58:57 CDT CPT-04334 Sono pelvis non OB uterus ovaries cervix 17:45:04 CDT CPT-66460 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
--- OUTSIDE RECORDS SUMMARY | 2019-10-27 13:16 | XMS REPORT | Clinical Summary ---
Author Author Admin, Elba Lance [facility] Address [...] hyperlipidemia CARPAL TUNNEL SYNDROME 354.0 Active Baltazar islverman MD Carpal tunnel syndrome OBESITY 278.00 Active Baltazar Childers MD Obesity, unspecified ADD 314.00 Active Baltazar Childers MD Attention deficit disorder of childhood without mention of hyperactivity DECREASED LIBIDO 799.81 Active Baltazar Wayne Decreased libido COLON POLYPS 211.3 Resolved Lolis Thomas LICENSED AUDIOLOGIST Benign neoplasm of colon PERIPHERAL NEUROPATHY 356.9 [...] a day to coat the stomach SUCRALFATE 76041846769 Active Baltazar Childers MD Active PEN NEEDLES 31G X 6 MM MISC use 1 daily INSULIN PEN NEEDLE 83405577793 Active Bella Suarez LICENSED AUDIOLOGIST Active TOUJEO SOLOSTAR 300 UNIT/ML SC SOPN 10 units SC daily INSULIN GLARGINE 59753920295 No Longer Active Martita Godinez RMA Active LANTUS SOLOSTAR 100 UNIT/ML SC SOPN 10 units SC daily INSULIN GLARGINE 78464027085 Active KNEDALL Juarez Active NAPROXEN SODIUM 220 MG ORAL TABS 1 three times a day as needed 2 NAPROXEN SODIUM 43440405684 No Longer Active Baltazar Childers MD Active ATORVASTATIN CALCIUM 20 MG ORAL TABS Take 1 tab daily ATORVASTATIN CALCIUM 32266184062 Active KENDALL Juarez Active FUROSEMIDE 40 MG TABS Take one by mouth daily FUROSEMIDE 15775160165 Active KENDALL Juarez Active LISINOPRIL 20 MG TABS Take one by mouth daily at bedtime LISINOPRIL 21113195466 Active Baltazar Childers MD Active ONETOUCH ULTRA BLUE STRP Test twice a day GLUCO SE BLOOD 31068333111 No Longer Active Baltazar Childers MD Active TRUEPLUS LANCETS 33G MISC Test twice a day LANCET S 29216805317 Active KENDALL Juarez Active TRUEDRAW LANCING DEVICE MISC Test twice a day L ANCET DEVICES 15073314736 Active Baltazar Childers MD Active TRUETRACK TEST STRP Test twice a day GLUCOSE BLOO D 97396539922 Active KENDALL Juarez Active TRUETRACK BLOOD GLUCOSE W/DEVICE KIT Test twice a day BLOOD GLUCOSE MONITORING SUPPL 10761669797 Active Baltazar Childers MD Activ e HYDROCODONE-ACETAMINOPHEN 7.5-325 MG TABS Take 1 tab every 6-8 hour s PRN HYDROCODONE-ACETAMINOPHEN 95872858793 Active Baltazar Childers MD Active NORTRIPTYLINE HCL 50 MG CAPS 1 every night for neuropathy 4 NORTRIPTYLINE HCL 11439509429 Active KENDALL Juarez Acti ve GABAPENTIN 300 MG CAPS 1 three times a day GABAPE NTIN 50825239648 Active Baltazar Childers MD Active GABAPENTIN 300 MG CAPS 1 po qd x 2 days, then 1 po BID x 2 d ays, then 1 po TID GABAPENTIN 99053674399 No Longer Active Baltazar silverman MD Active TRAMADOL HCL 50 MG TABS 1 twice a day as needed for pain TRAMADOL HCL 71856503308 Active Baltazar Childers MD Active NAPROXEN 500 MG TABS 1 tablet by mouth twice daily NAPROXEN 24635109156 No Longer Active Baltazar Childers MD Active PROAIR HFA 108 (90 BASE) MCG/ACT AERS 2 puffs four times a d ay as needed ALBUTEROL SULFATE 70731038379 Active KENDALL Juarez Active DEPO-TESTOSTERONE 200 MG/ML OIL as directed RUFINO TOSTERONE CYPIONATE 28898770517 No Longer Active Baltazar Childers MD Active LIPITOR 20 MG TABS Take one by mouth daily in evening ATORVASTATIN CALCIUM 91297097725 No Longer Active Baltazar Childers MD Activ e CRESTOR 10 MG TABS 1 by mouth every day R OSUVASTATIN CALCIUM 55713344187 No Longer Active Baltazar Childers MD Activ e PHENTERMINE HCL 37.5 MG TABS Take one by mouth daily 2 PHENTERMINE HCL 93211868717 No Longer Active Baltazar Childers MD Activ e ROBAXIN-750 750 MG TABS Take one by mouth daily ME THOCARBAMOL 92377822616 Active Baltazar Childers MD Active TIZANIDINE HCL 4 MG TABS 1 daily as needed for muscle spasm 2011 TIZANIDINE HCL 58624037033 No Longer Active Dawna Salazar RN Active [id number]-[id number]-DVHRRJTE 50-325-40 MG TABS 1 four time s a day as needed for heacache [id number] 28061242987 Active Baltazar Childers MD Active SUMATRIPTAN SUCCINATE 100 MG TABS 1 tablet by mouth at onset of migraine as needed SUMATRIPTAN SUCCINATE 04908716017 Active Bella STEPHEN RN Active LORATADINE 10 MG TABS Take one by mouth daily LORATADINE 52394958974 Active Baltazar Childers MD Active OMEPRAZOLE 20 MG CPDR Take one by mouth daily OMEPRAZOLE 34512516445 Active Argentina Lyons Active HYDROXYZINE HCL 25 MG TABS Take one by mouth daily HYDROXYZINE HCL 94774883089 Active Baltazar Childers MD Active GLIPIZIDE 10 MG TABS 1 tablet by mouth twice daily GLIPIZIDE 35703525964 Active KENDALL Juarez Active ALPRAZOLAM 1 MG TABS 1 tablet by mouth daily at bedtime for restles s leg ALPRAZOLAM 06688449114 Active Baltazar Childers MD Active METFORMIN HCL 1000 MG TABS Take one by mouth twice daily METFORMIN HCL 56169758632 Active Baltazar Childers MD Active TIZANIDINE HCL 4 MG TABS 1 daily as needed for muscle spasm 2011 TIZANIDINE HCL 4 MG TABS 614115 TIZANIDINE HCL Inactiv e PHENTERMINE HCL 37.5 MG TABS Take one by mouth daily 2 PHENTERMINE HCL 37.5 MG TABS 523421 PHENTERMINE HCL Inactive CRESTOR 10 MG TABS 1 by mouth every day C RESTOR 10 MG TABS 300609 ROSUVASTATIN CALCIUM Inactive LIPITOR 20 MG TABS Take one by mouth daily in evening LIPITOR 20 MG TABS 849066 ATORVASTATIN CALCIUM Inactive DEPO-TESTOSTERONE 200 MG/ML OIL as directed 8 DEPO-TESTOSTERONE 200 MG/ML OIL 440859 TESTOSTERONE CYPIONATE Inactive NAPROXEN 500 MG TABS 1 tablet by mouth twice daily 201 07/27/22 NAPROXEN 500 MG TABS 275769 NAPROXEN Inactive GABAPENTIN 300 MG CAPS 1 po qd x 2 days, then 1 po BID x 2 d ays, then 1 po TID GABAPENTIN 300 MG CAPS 549441 GABAPENTIN Inact amie ONETOUCH ULTRA BLUE STRP Test twice a day ONETOUCH ULTRA BLUE STRP GLUCOSE BLOOD Inactive NAPROXEN SODIUM 220 MG ORAL TABS 1 three times a day as needed 2 NAPROXEN SODIUM 220 MG ORAL TABS 832589 NAPROXEN SODIUM Inactive TOUJEO SOLOSTAR 300 UNIT/ML [...] Fluarix, Agriflu(>= 18 yo)) Fluzone (>3 yrs.) [UBP522] Influenza, seasonal, inject able Seasonal influenza vaccine, injectable, containing preservative, for > 3 years old (Afluria, FluLaval, Fluzone, Fluvirin, Fluarix, Agriflu(>= 18 yo)) Fluzone (>3 yrs.) [[id number]] Influenza, seasonal, inject able Vital Signs Date [...] C - Chemistry sodium, serum 139 mmol/L 445-797 3015/07/07 potassium, serum 4.5 mmol/L 3.5-5.2 chloride, serum [...] 7.9 % 4.3-6.0 sodium, serum 139 mmol/L 178-656 0317/02/04 potassium, serum 5.4 mmol/L 3.5-5.2 chloride, serum [...] Panel - Chemistry sodium, serum 141 mmol/L 838-409 1910/08/08 potassium, serum 4.9 mmol/L 3.5-5.2 chloride, serum [...] mg/dL Encounters Code Encounter Date Provider Facility CPT-46154 Level 4 Est. Patient 11:34:17 CDT Baltazar Childers MD [facility] CPT-83219 Level 3 Est. Patient 16:40:40 CDT Baltazar Childers MD [facility] CPT-56512 Level 4 Est. Patient 10:41:24 CDT Baltazar Childers MD [facility] CPT-67664 Level 4 Est. Patient 16:01:48 CDT Baltazar Childers MD [facility] CPT-66704 Level 4 Est. Patient 16:54:07 SHEET METAL OPERATOR Baltazar Childers MD [facility] CPT-87939 Level 4 Est. Patient 15:42:12 CDT Baltazar Childers MD [facility] CPT-52143 Level 4 Est. Patient 11:29:55 CDT Baltazar Childers MD [facility] CPT-13531 Level 4 Est. Patient 14:15:19 CDT Baltazra Childers MD [facility] CPT-08552 Level 4 Est. Patient 12:20:13 CDT Baltazar Childers MD [facility] CPT-46847 Level 4 Est. Patient 14:52:45 SHEET METAL OPERATOR Baltazar Childers MD [facility] CPT-49447 Level 4 Est. Patient 14:18:34 SHEET METAL OPERATOR Baltazar Childers MD [facility] CPT-10775 Level 4 Est. Patient 15:18:29 CDT Baltazar Childers MD [facility] CPT-29900 Level 3 Est. Patient 12:45:34 CDT Baltazar Childers MD [facility] CPT-21908 Level 3 Est. Patient 10:10:11 CDT Baltazar Childers MD [facility] CPT-27686 Level 3 Est. Patient 14:07:50 CDT Baltazar Childers MD [facility] CPT-81204 Level 4 Est. Patient 12:26:10 SHEET METAL OPERATOR Baltazar Childers MD [facility] CPT-57389 Level 4 Est. Patient 14:45:38 CDT Baltazar Childers MD [facility] CPT-67069 Level 4 New Patient 12:30:48 CDT Baltazar hinton MD [facility] Procedures Code Procedure Name Date Entry Date Standard Desc ription CPT-25183 Renal Panel - LAB USE ONLY 17:39:20 CDT 201 10/31/07 CPT-01291 CBC - LAB USE ONLY 17:39:20 CDT CPT-41882 Venipuncture Draw Fee 17:39:20 CDT CPT-24554 Venipuncture Draw Fee 14:33:30 CDT CPT-39463 Renal Panel - LAB USE ONLY 14:33:30 CDT 201 10/31/07 CPT-32130 CBC - LAB USE ONLY 14:33:29 CDT CPT-31227 Venipuncture Draw Fee 14:50:21 SHEET METAL OPERATOR CPT-38634 Immunization Single Admin 17:35:35 CDT 2014 CPT-29365 Fluzone Quadrivalent preservative free ( >=3yrs.) 17:35:35 CDT CPT-43085 Venipuncture Draw Fee 12:10:27 SHEET METAL OPERATOR CPT-19901 Fluzone Quadrivalent Intramuscular Suspe nsion 0.5 ML 10:49:13 CDT CPT-64308 First Vx Component - Ix admi n via ID IM or jet inj without physician counseling 15:17:19 SHEET METAL OPERATOR CPT-46914 Pneumovax 15:17:19 SHEET METAL OPERATOR CPT-04193 Pneumovax 14:52:45 SHEET METAL OPERATOR CPT-60827 Venipuncture Draw Fee 14:06:30 SHEET METAL OPERATOR CPT-000 Give Appropriate Flu Vaccine 14:18:34 SHEET METAL OPERATOR 2 CPT-65192 Administration single or combination vac cine inc oral 14:46:00 SHEET METAL OPERATOR CPT-04948 Influenza split virus > age 3 14:46:00 SHEET METAL OPERATOR CPT-OV Office Visit 19:13:16 CDT CPT-99939 Zostavax 18:41:56 CDT CPT-34278 Administration single or combination vac cine inc oral 12:56:39 CDT CPT-16548 Zoster Vaccine (Zostavax) 12:56:39 CDT 2012 CPT-25822 Venipuncture Draw Fee 10:58:57 CDT CPT-76097 Sono pelvis non OB uterus ovaries cervix 17:45:04 CDT CPT-90105 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
--- OUTSIDE RECORDS SUMMARY | 2019-10-27 13:16 | XMS REPORT | Clinical Summary ---
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 Benign neoplasm of colon PERIPHERAL NEUROPATHY [...] ronary atherosclerosis of unspecified type of vessel, council or graft OTH NONSPC ABN FINDNG RAD&OTH [...] a day as needed 2 NAPROXEN SODIUM 42262080192 No Longer Active Baltazar Childers MD Active ATORVASTATIN CALCIUM 20 MG ORAL TABS Take 1 tab daily ATORVASTATIN CALCIUM 18100135373 Active KENDALL Juarez Active FUROSEMIDE 40 MG TABS Take one by mouth daily FUROSEMIDE 62869578506 Active Baltazar Childers MD Active LISINOPRIL 20 MG TABS Take one by mouth daily at bedtime LISINOPRIL 78780798528 Active Baltazar Childers MD Active ONETOUCH ULTRA BLUE STRP Test twice a day GLUCO SE BLOOD 93699097383 No Longer Active Baltazar Childers MD Active TRUEPLUS LANCETS 33G MISC Test twice a day LANCET S 26851724532 Active KENDALL Juarez Active TRUEDRAW LANCING DEVICE MISC Test twice a day L ANCET DEVICES 02286221094 Active Baltazar Childers MD Active TRUETRACK TEST STRP Test twice a day GLUCOSE BLOO D 74721183626 Active KENDALL Juarez Active TRUETRACK BLOOD GLUCOSE W/DEVICE KIT Test twice a day BLOOD GLUCOSE MONITORING SUPPL 43831389817 Active Baltazar Childers MD Activ e HYDROCODONE-ACETAMINOPHEN 7.5-325 MG TABS Take 1 tab every 6-8 hour s PRN HYDROCODONE-ACETAMINOPHEN 92610818826 Active Baltazar Childers MD Active NORTRIPTYLINE HCL 50 MG CAPS 1 every night for neuropathy 4 NORTRIPTYLINE HCL 42560963673 Active Baltazar Childers MD Acti ve GABAPENTIN 300 MG CAPS 1 three times a day GABAPE NTIN 29993260114 Active Baltazar Childers MD Active GABAPENTIN 300 MG CAPS 1 po qd x 2 days, then 1 po BID x 2 d ays, then 1 po TID GABAPENTIN 02329806353 No Longer Active Baltazar silverman MD Active TRAMADOL HCL 50 MG TABS 1 twice a day as needed for pain TRAMADOL HCL 19849802700 Active Baltazar Childers MD Active NAPROXEN 500 MG TABS 1 tablet by mouth twice daily NAPROXEN 75206958375 No Longer Active Baltazar Childers MD Active PROAIR HFA 108 (90 BASE) MCG/ACT AERS 2 puffs four times a d ay as needed ALBUTEROL SULFATE 63787784040 Active KENDALL Juarez Active DEPO-TESTOSTERONE 200 MG/ML OIL as directed RUFINO TOSTERONE CYPIONATE 15977459059 No Longer Active Baltazar Childers MD Active LIPITOR 20 MG TABS Take one by mouth daily in evening ATORVASTATIN CALCIUM 05199310663 No Longer Active Baltazar Childers MD Activ e CRESTOR 10 MG TABS 1 by mouth every day R OSUVASTATIN CALCIUM 09544843953 No Longer Active Baltazar Childers MD Activ e PHENTERMINE HCL 37.5 MG TABS Take one by mouth daily 2 PHENTERMINE HCL 03862577267 No Longer Active Baltazar Childers MD Activ e ROBAXIN-750 750 MG TABS Take one by mouth daily ME THOCARBAMOL 11096808023 Active Baltazar Childers MD Active TIZANIDINE HCL 4 MG TABS 1 daily as needed for muscle spasm 2011 TIZANIDINE HCL 72944607461 No Longer Active Dawna Salazar RN Active [id number] 50-325-40 MG TABS 1 four time s a day as needed for heacache [id number] 04415185299 Active Baltazar Childers MD Active SUMATRIPTAN SUCCINATE 100 MG TABS 1 tablet by mouth at onset of migraine as needed SUMATRIPTAN SUCCINATE 09318061938 Active KENDALL Juarez Active LORATADINE 10 MG TABS Take one by mouth daily LORATADINE 78142207879 Active Baltazar Childers MD Active OMEPRAZOLE 20 MG CPDR Take one by mouth daily OMEPRAZOLE 71536155331 Active [place] Lyons Active HYDROXYZINE HCL 25 MG TABS Take one by mouth daily HYDROXYZINE HCL 71039751959 Active Baltazar Childers MD Active GLIPIZIDE 10 MG TABS 1 tablet by mouth twice daily GLIPIZIDE 47985305244 Active Baltazar Chiledrs MD Active ALPRAZOLAM 1 MG TABS 1 tablet by mouth daily at bedtime for restles s leg ALPRAZOLAM 69302261170 Active Baltazar Childers MD Active METFORMIN HCL 1000 MG TABS Take one by mouth twice daily METFORMIN HCL 50230489074 Active Baltazar Childers MD Active TIZANIDINE HCL 4 MG TABS 1 daily as needed for muscle spasm 2011 TIZANIDINE HCL 4 MG TABS 632375 TIZANIDINE HCL Inactiv e PHENTERMINE HCL 37.5 MG TABS Take one by mouth daily 2 PHENTERMINE HCL 37.5 MG TABS 590964 PHENTERMINE HCL Inactive CRESTOR 10 MG TABS 1 by mouth every day C RESTOR 10 MG TABS 659057 ROSUVASTATIN CALCIUM Inactive LIPITOR 20 MG TABS Take one by mouth daily in evening LIPITOR 20 MG TABS 822785 ATORVASTATIN CALCIUM Inactive DEPO-TESTOSTERONE 200 MG/ML OIL as directed 8 DEPO-TESTOSTERONE 200 MG/ML OIL 027300 TESTOSTERONE CYPIONATE Inactive NAPROXEN 500 MG TABS 1 tablet by mouth twice daily 201 07/27/22 NAPROXEN 500 MG TABS 222542 NAPROXEN Inactive GABAPENTIN 300 MG CAPS 1 po qd x 2 days, then 1 po BID x 2 d ays, then 1 po TID GABAPENTIN 300 MG CAPS 973418 GABAPENTIN Inact amie ONETOUCH ULTRA BLUE STRP Test twice a day ONETOUCH ULTRA BLUE STRP GLUCOSE BLOOD Inactive NAPROXEN SODIUM 220 MG ORAL TABS 1 three times a day as needed 2 NAPROXEN SODIUM 220 MG ORAL TABS 528485 NAPROXEN SODIUM Inactive Immunizations Vaccine Administration Date Value Standard Floyd cription pneumococcal immunization administered Pneumovax 23 [CVX33] pneumococcal polysaccharide vaccine, 23 valent Seasonal influenza vaccine, injectable, containing preservative, for > 3 years old (Afluria, FluLaval, Fluzone, Fluvirin, Fluarix, Agriflu(>= 18 yo)) Fluzone (>3 yrs.) [[id number]] Influenza, seasonal, inject able Seasonal influenza vaccine, injectable, containing preservative, for > 3 years old (Afluria, FluLaval, Fluzone, Fluvirin, Fluarix, Agriflu(>= 18 yo)) Fluzone (>3 yrs.) [MJR510] Influenza, seasonal, inject able Vital Signs Date [...] C - Chemistry sodium, serum 139 mmol/L 208-973 1989/07/07 potassium, serum 4.5 mmol/L 3.5-5.2 chloride, serum [...] 7.9 % 4.3-6.0 sodium, serum 139 mmol/L 677-516 3475/02/04 potassium, serum 5.4 mmol/L 3.5-5.2 chloride, serum [...] Lipid Panel - Chemistry bilirubin, serum, total 0.40 mg/dL 0.00-1.00 cholesterol, serum 405 mg/dL 672-602 5283/11/23 triglyceride, serum, fasting 709 mg/dL 30-200 HDL cholesterol, serum 53 mg/dL 32-96 LDL cholesterol, serum 210 mg/dL 0-130 blood glucose 136 mg/dL 65-110 chloride, serum 98 mmol/L 98-107 potassium, serum 5.7 mmol/L 3.5-5.2 carbon dioxide, venous blood 32.4 mmol/L 21.0-32 .0 sodium, serum 138 mmol/L 848-302 5060/11/23 calcium, serum 9.4 mg/dL 8.5-10.1 aspartate aminotransferase (SGOT), serum 34 U/L 15-37 alanine aminotransferase (SGPT), serum 71 U/L 12-78 creatinine, serum 1.71 mg/dL 0.55-1.30 urea nitrogen, blood 18 mg/dL 7-18 Lab Report: HGBA1C - Chemistry hemoglobin A1C, [...] mg/dL Encounters Code Encounter Date Provider Facility CPT-23476 Level 4 Est. Patient 10:41:24 CDT Baltazar Childers MD [facility] CPT-39517 Level 4 Est. Patient 16:01:48 CDT Baltazar Childers MD [facility] CPT-99294 Level 4 Est. Patient 16:54:07 [employer] Baltazar Childers MD [facility] CPT-67014 Level 4 Est. Patient 15:42:12 CDT Baltazar Childers MD [facility] CPT-63261 Level 4 Est. Patient 11:29:55 CDT Baltazar Childers MD [facility] CPT-59596 Level 4 Est. Patient 14:15:19 CDT Baltazar Childers MD [facility] CPT-56495 Level 4 Est. Patient 12:20:13 CDT Baltazar Childers MD [facility] CPT-79532 Level 4 Est. Patient 14:52:45 [employer] Baltazar Childers MD [facility] CPT-73508 Level 4 Est. Patient 14:18:34 [employer] Baltazar Childers MD [facility] CPT-34926 Level 4 Est. Patient 15:18:29 CDT Baltazar Childers MD [facility] CPT-58333 Level 3 Est. Patient 12:45:34 CDT Baltazar Childers MD [facility] CPT-63111 Level 3 Est. Patient 10:10:11 CDT Baltazar Childers MD [facility] CPT-39469 Level 3 Est. Patient 14:07:50 CDT Baltazar Childers MD [facility] CPT-30710 Level 4 Est. Patient 12:26:10 [employer] Baltazar Childers MD [facility] CPT-14177 Level 4 Est. Patient 14:45:38 CDT Baltazar Childers MD [facility] CPT-38526 Level 4 New Patient 12:30:48 CDT Baltazar hinton MD [facility] Procedures Code Procedure Name Date Entry Date Standard Desc ription CPT-36744 Venipuncture Draw Fee 14:50:21 [employer] CPT-28579 Immunization Single Admin 17:35:35 CDT 2014 CPT-93064 Fluzone Quadrivalent preservative free ( >=3yrs.) 17:35:35 CDT CPT-17756 Venipuncture Draw Fee 12:10:27 [employer] CPT-05498 Fluzone Quadrivalent Intramuscular Suspe nsion 0.5 ML 10:49:13 CDT CPT-23151 First Vx Component - Ix admi n via ID IM or jet inj without physician counseling 15:17:19 [employer] MA[employer] CPT-09510 Pneumovax 15:17:19 [employer] CPT-57938 Pneumovax 14:52:45 [employer] CPT-91561 Venipuncture Draw Fee 14:06:30 [employer] CPT-000 Give Appropriate Flu Vaccine 14:18:34 [employer] MA[employer]GER 2 CPT-82807 Administration single or combination vac cine inc oral 14:46:00 [employer] CPT-40496 Influenza split virus > age 3 14:46:00 [employer] CPT-OV Office Visit 19:13:16 CDT CPT-99017 Zostavax 18:41:56 CDT CPT-42282 Administration single or combination vac cine inc oral 12:56:39 CDT CPT-07583 Zoster Vaccine (Zostavax) 12:56:39 CDT 2012 CPT-26991 Venipuncture Draw Fee 10:58:57 CDT CPT-68671 Sono pelvis non OB uterus ovaries cervix 17:45:04 CDT CPT-35430 Sono retroperitoneal complete kidneys an d bladder 17:14:36 CDT CPT-OV Office Visit 14:59:38 [employer] CPT-J1070 Depo Testosterone 100 mg 14:50:13 CDT 03/05 CPT-12564 Abx/Therapy Injection 14:50:13 CDT CPT-58436 Administration single or combination vac cine inc oral 14:34:43 CDT CPT-94634 Influenza split virus > age 3 14:34:43 CDT CPT-J1070 Depo Testosterone 100 mg 17:37:13 CDT 01/11 CPT-86727 Abx/Therapy Injection 17:37:13 CDT CPT-63729 Venipuncture Draw Fee 16:30:13 CDT CPT-08363 Venipuncture Draw Fee 16:29:43 CDT CPT-J1070 Depo Testosterone 100 mg 14:45:38 CDT 01/11
--- OUTSIDE RECORDS SUMMARY | 2019-10-27 13:16 | XMS REPORT | Clinical Summary ---
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 Benign neoplasm of colon PERIPHERAL NEUROPATHY [...] ronary atherosclerosis of unspecified type of vessel, [place] or graft OTH NONSPC ABN FINDNG RAD&OTH [...] Childers MD Heartburn COLON POLYPS ICD-211.3 Inactive Loils Bynum Medication List Medication Instructions Start Date Stop Date Generic Name NDC Status Provider Patient Instruction GLIPIZIDE 10 MG TAB take 2 tablets twice daily GLIPIZIDE 34843837792 Active Carina Tucker LPN Active SUCRALFATE 1 GM TABS 1 four times a day to coat the stomach 2015 SUCRALFATE 79644903921 No Longer Active Baltazar Childers MD Active PEN NEEDLES 31G X 6 MM MISC use 1 daily INSULIN PEN NEEDLE 86959618485 Active Bella Suarez GENERATION MECHANIC HELPER Active CELINA SOLOSTAR 300 UNIT/ML SC SOPN 10 units SC daily INSULIN GLARGINE 70051559883 No Longer Active Martita ARGUETA Active LANTUS SOLOSTAR 100 UNIT/ML SC SOPN 10 units SC daily INSULIN GLARGINE 19087223984 Active Baltazar Childers MD Active NAPROXEN SODIUM 220 MG ORAL TABS 1 three times a day as needed 2 NAPROXEN SODIUM 96218411804 No Longer Active Baltazar Childers MD Active ATORVASTATIN CALCIUM 20 MG ORAL TABS Take 1 tab daily ATORVASTATIN CALCIUM 82360500317 Active Baltazar Childers MD Active FUROSEMIDE 40 MG TABS Take one by mouth daily FUROSEMIDE 39722254365 Active Baltazar Childers MD Active LISINOPRIL 20 MG TABS Take one by mouth daily at bedtime LISINOPRIL 41345818826 Active KENDALL Juarez Active ONETOUCH ULTRA BLUE STRP Test twice a day GLUCO SE BLOOD 15017018642 No Longer Active Baltazar Childers MD Active TRUEPLUS LANCETS 33G MISC Test twice a day LANCET S 23850795529 Active KENDALL Juarez Active TRUEDRAW LANCING DEVICE MISC Test twice a day L ANCET DEVICES 31577238634 Active Baltazar Childers MD Active TRUETRACK TEST STRP Test twice a day GLUCOSE BLOO D 61722396394 Active KENDALL Juarez Active TRUETRACK BLOOD GLUCOSE W/DEVICE KIT Test twice a day BLOOD GLUCOSE MONITORING SUPPL 84617044776 Active Baltazar Childers MD Activ e HYDROCODONE-ACETAMINOPHEN 7.5-325 MG TABS Take 1 tab every 6-8 hour s PRN HYDROCODONE-ACETAMINOPHEN 85640047654 Active Shonna Parker APRN Active NORTRIPTYLINE HCL 50 MG CAPS 1 every night for neuropathy 4 NORTRIPTYLINE HCL 63343139535 Active Baltazar Childers MD Acti ve GABAPENTIN 300 MG CAPS 1 three times a day GABAPE NTIN 58374015737 Active Baltazar Childers MD Active GABAPENTIN 300 MG CAPS 1 po qd x 2 days, then 1 po BID x 2 d ays, then 1 po TID GABAPENTIN 75167932332 No Longer Active Baltazar silverman MD Active TRAMADOL HCL 50 MG TABS 1 twice a day as needed for pain TRAMADOL HCL 58467207112 Active Shonna Parker APRN Active NAPROXEN 500 MG TABS 1 tablet by mouth twice daily NAPROXEN 28676043721 No Longer Active Baltazar Childers MD Active PROAIR HFA 108 (90 BASE) MCG/ACT AERS 2 puffs four times a d ay as needed ALBUTEROL SULFATE 32719741591 Active KENDALL Juarez Active DEPO-TESTOSTERONE 200 MG/ML OIL as directed RUFINO TOSTERONE CYPIONATE 51180460116 No Longer Active Baltazar Childers MD Active LIPITOR 20 MG TABS Take one by mouth daily in evening ATORVASTATIN CALCIUM 54881814429 No Longer Active Baltazar Childers MD Activ e CRESTOR 10 MG TABS 1 by mouth every day R OSUVASTATIN CALCIUM 43986797006 No Longer Active Baltazar Childers MD Activ e PHENTERMINE HCL 37.5 MG TABS Take one by mouth daily 2 PHENTERMINE HCL 41530729553 No Longer Active Baltazar Childers MD Activ e ROBAXIN-750 750 MG TABS Take one by mouth daily ME THOCARBAMOL 04698157680 Active Baltazar Childers MD Active TIZANIDINE HCL 4 MG TABS 1 daily as needed for muscle spasm 2011 TIZANIDINE HCL 30843919936 No Longer Active Dawna Salazar RN Active [id number] 50-325-40 MG TABS 1 four time s a day as needed for heacache [id number]-MWLQESLQ 40467578706 Active Shonna Parker APRN Active SUMATRIPTAN SUCCINATE 100 MG TABS 1 tablet by mouth at onset of migraine as needed SUMATRIPTAN SUCCINATE 97345724691 Active Shonna richey APRN Active LORATADINE 10 MG TABS Take one by mouth daily LORATADINE 86582135853 Active Baltazar Childers MD Active OMEPRAZOLE 20 MG CPDR Take one by mouth daily OMEPRAZOLE 46542501922 Active Bethrenetta Carr KENDALL Active HYDROXYZINE HCL 25 MG TABS Take one by mouth daily HYDROXYZINE HCL 72194792002 Active Baltazar Childers MD Active ALPRAZOLAM 1 MG TABS 1 tablet by mouth daily at bedtime for restles s leg ALPRAZOLAM 64354863116 Active Baltazar Childers MD Active METFORMIN HCL 1000 MG TABS Take one by mouth twice daily METFORMIN HCL 49118425280 Active Baltazar Childers MD Active TIZANIDINE HCL 4 MG TABS 1 daily as needed for muscle spasm 2011 TIZANIDINE HCL 4 MG TABS 310880 TIZANIDINE HCL Inactiv e PHENTERMINE HCL 37.5 MG TABS Take one by mouth daily 2 PHENTERMINE HCL 37.5 MG TABS 649938 PHENTERMINE HCL Inactive CRESTOR 10 MG TABS 1 by mouth every day C RESTOR 10 MG TABS 448908 ROSUVASTATIN CALCIUM Inactive LIPITOR 20 MG TABS Take one by mouth daily in evening LIPITOR 20 MG TABS 230116 ATORVASTATIN CALCIUM Inactive DEPO-TESTOSTERONE 200 MG/ML OIL as directed 8 DEPO-TESTOSTERONE 200 MG/ML OIL 427859 TESTOSTERONE CYPIONATE Inactive NAPROXEN 500 MG TABS 1 tablet by mouth twice daily 201 07/27/22 NAPROXEN 500 MG TABS 409408 NAPROXEN Inactive GABAPENTIN 300 MG CAPS 1 po qd x 2 days, then 1 po BID x 2 d ays, then 1 po TID GABAPENTIN 300 MG CAPS 212805 GABAPENTIN Inact amie ONETOUCH ULTRA BLUE STRP Test twice a day ONETOUCH ULTRA BLUE STRP GLUCOSE BLOOD Inactive NAPROXEN SODIUM 220 MG ORAL TABS 1 three times a day as needed 2 NAPROXEN SODIUM 220 MG ORAL TABS 228481 NAPROXEN SODIUM Inactive TOUJEO SOLOSTAR 300 UNIT/ML SC SOPN 10 units SC daily TOUJEO SOLOSTAR 300 UNIT/ML SC SOPN INSULIN GLARGINE Inac tive SUCRALFATE 1 GM TABS 1 four times a day to coat the stomach 2015 SUCRALFATE 1 GM TABS 722722 SUCRALFATE Inactive Immunizations Vaccine Administration Date Value Standard Floyd cription pneumococcal immunization administered Pneumovax 23 [CVX33] pneumococcal polysaccharide vaccine, 23 valent Seasonal influenza vaccine, injectable, containing preservative, for > 3 years old (Afluria, FluLaval, Fluzone, Fluvirin, Fluarix, Agriflu(>= 18 yo)) Fluzone (>3 yrs.) [GUU301] Influenza, seasonal, inject able Seasonal influenza vaccine, injectable, containing preservative, for > 3 years old (Afluria, FluLaval, Fluzone, Fluvirin, Fluarix, Agriflu(>= 18 yo)) Fluzone (>3 yrs.) [[id number]] Influenza, seasonal, inject able Vital Signs Date Name Value Unit Range Description blood pressure, diastolic - 8462-4 48 mm[Hg] BP samleron blood pressure, systolic - 8480-6 95 mm[Hg] [...] C - Chemistry sodium, serum 139 mmol/L 346-196 7053/07/07 potassium, serum 4.5 mmol/L 3.5-5.2 chloride, serum [...] Panel - Chemistry sodium, serum 143 mmol/L 052-621 4616/12/19 carbon dioxide, venous blood 32.5 mmol/L 21.0-32 .0 potassium, serum 4.9 mmol/L 3.5-5.2 chloride, serum 101 mmol/L 98-107 blood glucose 129 mg/dL 65-110 urea nitrogen, blood 18 mg/dL 7-18 creatinine, serum 1.79 mg/dL 0.55-1.30 alanine aminotransferase (SGPT), serum 34 U/L 12-78 aspartate aminotransferase (SGOT), serum 26 U/L 15-37 calcium, serum 8.9 mg/dL 8.5-10.1 bilirubin, serum, total 0.30 mg/dL 0.00-1.00 cholesterol, serum 214 mg/dL 130-175 7113/12/19 triglyceride, serum, fasting 351 mg/dL 30-200 HDL [...] Panel - Chemistry sodium, serum 141 mmol/L 978-289 1169/08/08 potassium, serum 4.9 mmol/L 3.5-5.2 chloride, serum 101 mmol/L 98-107 carbon dioxide, venous blood 34.1 mmol/L 21.0-32 .0 creatinine, serum 1.98 mg/dL 0.55-1.30 blood glucose 193 mg/dL 65-110 urea nitrogen, blood 30 mg/dL 7-18 calcium, serum 9.8 mg/dL 8.5-10.1 Encounters Code Encounter Date Provider Facility CPT-05020 Level 4 Est. Patient 15:44:38 CDT Shonna Parker APRN [facility] CPT-09883 Level 4 Est. Patient 11:34:17 CDT Baltazar Childers MD [facility] CPT-77844 Level 3 Est. Patient 16:40:40 CDT Baltazar Childers MD [facility] CPT-53971 Level 4 Est. Patient 10:41:24 CDT Baltazar Childers MD [facility] CPT-90852 Level 4 Est. Patient 16:01:48 CDT Baltazar Childers MD [facility] CPT-29357 Level 4 Est. Patient 16:54:07 ARCHITECTURAL PROJECT CAPTAIN Baltazar Childers MD [facility] CPT-29749 Level 4 Est. Patient 15:42:12 CDT Baltazar Childers MD [facility] CPT-33293 Level 4 Est. Patient 11:29:55 CDT Baltazar Childers MD [facility] CPT-99434 Level 4 Est. Patient 14:15:19 CDT Baltazar Childers MD [facility] CPT-89672 Level 4 Est. Patient 12:20:13 CDT Baltazar Childers MD [facility] CPT-27754 Level 4 Est. Patient 14:52:45 ARCHITECTURAL PROJECT CAPTAIN Baltazar Childers MD [facility] CPT-27647 Level 4 Est. Patient 14:18:34 ARCHITECTURAL PROJECT CAPTAIN Baltazar Childers MD [facility] CPT-16072 Level 4 Est. Patient 15:18:29 CDT Baltazar Childers MD [facility] CPT-92442 Level 3 Est. Patient 12:45:34 CDT Baltazar Childers MD [facility] CPT-29299 Level 3 Est. Patient 10:10:11 CDT Baltazar Childers MD [facility] CPT-79574 Level 3 Est. Patient 14:07:50 CDT Baltazar Childers MD [facility] CPT-51735 Level 4 Est. Patient 12:26:10 ARCHITECTURAL PROJECT CAPTAIN Baltazar Childers MD [facility] CPT-43574 Level 4 Est. Patient 14:45:38 CDT Baltazar Childers MD [facility] CPT-19250 Level 4 New Patient 12:30:48 CDT Baltazar hinton MD [facility] Procedures Code Procedure Name Date Entry Date Standard Desc ription CPT-43048 Lipid - LAB USE ONLY 17:39:15 ARCHITECTURAL PROJECT CAPTAIN 9 CPT-62063 HGBA1C - LAB USE ONLY 17:39:15 ARCHITECTURAL PROJECT CAPTAIN CPT-36073 CMP - LAB USE ONLY 17:39:14 ARCHITECTURAL PROJECT CAPTAIN CPT-60265 Venipuncture Draw Fee 17:39:14 ARCHITECTURAL PROJECT CAPTAIN CPT-62736 First Vx - Ix admin via ID I M or jet injects without counseling by physician 16:55:17 ARCHITECTURAL PROJECT CAPTAIN CPT-63987 Fluzone Quadrivalent Intramuscular Suspe nsion 0.5 ML 16:55:17 ARCHITECTURAL PROJECT CAPTAIN CPT-03948 Renal Panel - LAB USE ONLY 17:39:20 CDT 201 10/31/07 CPT-79444 CBC - LAB USE ONLY 17:39:20 CDT CPT-35219 Venipuncture Draw Fee 17:39:20 CDT CPT-66602 Venipuncture Draw Fee 14:33:30 CDT CPT-40583 Renal Panel - LAB USE ONLY 14:33:30 CDT 201 10/31/07 CPT-03583 CBC - LAB USE ONLY 14:33:29 CDT CPT-72120 Venipuncture Draw Fee 14:50:21 ARCHITECTURAL PROJECT CAPTAIN CPT-58292 Immunization Single Admin 17:35:35 CDT 2014 CPT-07960 Fluzone Quadrivalent preservative free ( >=3yrs.) 17:35:35 CDT CPT-70496 Venipuncture Draw Fee 12:10:27 ARCHITECTURAL PROJECT CAPTAIN CPT-78063 Fluzone Quadrivalent Intramuscular Suspe nsion 0.5 ML 10:49:13 CDT CPT-28198 First Vx Component - Ix admi n via ID IM or jet inj without physician counseling 15:17:19 ARCHITECTURAL PROJECT CAPTAIN CPT-89569 Pneumovax 23 15:17:19 ARCHITECTURAL PROJECT CAPTAIN CPT-02252 Pneumovax 14:52:45 ARCHITECTURAL PROJECT CAPTAIN CPT-95695 Venipuncture Draw Fee 14:06:30 ARCHITECTURAL PROJECT CAPTAIN CPT-000 Give Appropriate Flu Vaccine 14:18:34 ARCHITECTURAL PROJECT CAPTAIN 2 CPT-54730 Administration single or combination vac cine inc oral 14:46:00 ARCHITECTURAL PROJECT CAPTAIN CPT-96966 Influenza split virus > age 3 14:46:00 ARCHITECTURAL PROJECT CAPTAIN CPT-OV Office Visit 19:13:16 CDT CPT-61527 Zostavax 18:41:56 CDT CPT-59667 Administration single or combination vac cine inc oral 12:56:39 CDT CPT-94115 Zoster Vaccine (Zostavax) 12:56:39 CDT 2012 CPT-76539 Venipuncture Draw Fee 10:58:57 CDT CPT-09328 Sono pelvis non OB uterus ovaries cervix 17:45:04 CDT CPT-87380 Sono retroperitoneal complete kidneys an d bladder 17:14:36 CDT CPT-OV Office Visit 14:59:38 ARCHITECTURAL PROJECT CAPTAIN CPT-J1070 Depo Testosterone 100 mg 14:50:13 CDT 03/05 CPT-65021 Abx/Therapy Injection 14:50:13 CDT CPT-53772 Administration single or combination vac cine inc oral 14:34:43 CDT CPT-81108 Influenza split virus > age 3 14:34:43 CDT CPT-J1070 Depo Testosterone 100 mg 17:37:13 CDT 01/11 CPT-73015 Abx/Therapy Injection 17:37:13 CDT CPT-24427 Venipuncture Draw Fee 16:30:13 CDT CPT-75351 Venipuncture Draw Fee 16:29:43 CDT CPT-J1070 Depo Testosterone 100 mg 14:45:38 CDT 01/11
--- OUTSIDE RECORDS SUMMARY | 2019-10-27 13:16 | XMS REPORT | Clinical Summary ---
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 Benign neoplasm of colon PERIPHERAL NEUROPATHY [...] atherosclerosis of unspecified type of vessel, [place] or graft OTH NONSPC ABN FINDNG [...] a day as needed 2014 NAPROXEN SODIUM 16641538638 Active Baltazar Childers MD Active FUROSEMIDE 40 MG TABS Take one by mouth daily FUROSEMIDE 21687370798 Active Baltazar Childers MD Active LISINOPRIL 20 MG TABS Take one by mouth daily at bedtime LISINOPRIL 63305252562 Active Baltazar Childers MD Active ONETOUCH ULTRA BLUE STRP Test twice a day GLUCO SE BLOOD 59575765914 No Longer Active Baltazar Childers MD Active TRUEPLUS LANCETS 33G MISC Test twice a day LANCET S 75579308875 Active Baltazar Childers MD Active TRUEDRAW LANCING DEVICE MISC Test twice a day L ANCET DEVICES 02231275788 Active Baltazar Childers MD Active TRUETRACK TEST STRP Test twice a day GLUCOSE BLOO D 40346081431 Active Baltazar Childers MD Active TRUETRACK BLOOD GLUCOSE W/DEVICE KIT Test twice a day BLOOD GLUCOSE MONITORING SUPPL 50286022701 Active Baltazar Childers MD Activ e HYDROCODONE-ACETAMINOPHEN 7.5-325 MG TABS Take 1 tab every 6-8 hour s PRN HYDROCODONE-ACETAMINOPHEN 77243067709 Active Baltazar Childers MD Active NORTRIPTYLINE HCL 50 MG CAPS 1 every night for neuropathy 4 NORTRIPTYLINE HCL 56895026148 Active Baltazar Childers MD Acti ve GABAPENTIN 300 MG CAPS 1 three times a day GABAPE NTIN 06169240668 Active Kelly Iraheta LPN Active GABAPENTIN 300 MG CAPS 1 po qd x 2 days, then 1 po BID x 2 d ays, then 1 po TID GABAPENTIN 77038141882 No Longer Active Baltazar silverman MD Active TRAMADOL HCL 50 MG TABS 1 twice a day as needed for pain TRAMADOL HCL 45056901094 Active Baltazar Childers MD Active NAPROXEN 500 MG TABS 1 tablet by mouth twice daily NAPROXEN 44418602777 No Longer Active Baltazar Childers MD Active PROAIR HFA 108 (90 BASE) MCG/ACT AERS 2 puffs four times a d ay as needed ALBUTEROL SULFATE 65022405738 Active Baltazar Childers MD Active DEPO-TESTOSTERONE 200 MG/ML OIL as directed RUFINO TOSTERONE CYPIONATE 16518687861 No Longer Active Baltazar Childers MD Active LIPITOR 20 MG TABS Take one by mouth daily in evening ATORVASTATIN CALCIUM 12917735938 No Longer Active Baltazar Childers MD Activ e CRESTOR 10 MG TABS 1 by mouth every day R OSUVASTATIN CALCIUM 43455311662 No Longer Active Baltazar Childers MD Activ e PHENTERMINE HCL 37.5 MG TABS Take one by mouth daily 2 PHENTERMINE HCL 87016334267 No Longer Active Baltazar Childers MD Activ e ROBAXIN-750 750 MG TABS Take one by mouth daily ME THOCARBAMOL 52098436055 Active Baltazar Childers MD Active TIZANIDINE HCL 4 MG TABS 1 daily as needed for muscle spasm 2011 TIZANIDINE HCL 94334694622 No Longer Active Dawna Salazar RN Active [id number] 50-325-40 MG TABS 1 four time s a day as needed for heacache [id number]-[id number] 18304212307 Active Baltazar Childers MD Active SUMATRIPTAN SUCCINATE 100 MG TABS 1 tablet by mouth at onset of migraine as needed SUMATRIPTAN SUCCINATE 96561039541 Active Baltazar bynum MD Active LORATADINE 10 MG TABS Take one by mouth daily LORATADINE 15036692036 Active Baltazar Childers MD Active OMEPRAZOLE 20 MG CPDR Take one by mouth daily OMEPRAZOLE 82302701155 Active Baltazar Childers MD Active HYDROXYZINE HCL 25 MG TABS Take one by mouth daily HYDROXYZINE HCL 42031094060 Active Dawna Lew Active GLIPIZIDE 10 MG TABS 1 tablet by mouth twice daily GLIPIZIDE 13537592033 Active Baltazar Childers MD Active ALPRAZOLAM 1 MG TABS 1 tablet by mouth daily at bedtime for restles s leg ALPRAZOLAM 97985805399 Active Baltazar Childers MD Active METFORMIN HCL 1000 MG TABS Take one by mouth twice daily METFORMIN HCL 69694676796 Active Baltazar Childers MD Active TIZANIDINE HCL 4 MG TABS 1 daily as needed for muscle spasm 2011 TIZANIDINE HCL 4 MG TABS 156150 TIZANIDINE HCL Inactiv e PHENTERMINE HCL 37.5 MG TABS Take one by mouth daily 2 PHENTERMINE HCL 37.5 MG TABS 736422 PHENTERMINE HCL Inactive CRESTOR 10 MG TABS 1 by mouth every day C RESTOR 10 MG TABS ROSUVASTATIN CALCIUM Inactive LIPITOR 20 MG TABS Take one by mouth daily in evening LIPITOR 20 MG TABS 504692 ATORVASTATIN CALCIUM Inactive DEPO-TESTOSTERONE 200 MG/ML OIL as directed 8 DEPO-TESTOSTERONE 200 MG/ML OIL 097229 TESTOSTERONE CYPIONATE Inactive NAPROXEN 500 MG TABS 1 tablet by mouth twice daily 201 07/27/22 NAPROXEN 500 MG TABS 906815 NAPROXEN Inactive GABAPENTIN 300 MG CAPS 1 po qd x 2 days, then 1 po BID x 2 d ays, then 1 po TID GABAPENTIN 300 MG CAPS 794131 GABAPENTIN Inact amie ONETOUCH ULTRA BLUE STRP Test twice a day ONETOUCH ULTRA BLUE STRP GLUCOSE BLOOD Inactive Immunizations Vaccine Administration Date Value Standard Floyd cription pneumococcal immunization administered Pneumovax 23 [CVX33] pneumococcal polysaccharide vaccine, 23 valent Seasonal influenza vaccine, injectable, containing preservative, for > 3 years old (Afluria, FluLaval, Fluzone, Fluvirin, Fluarix, Agriflu(>= 18 yo)) Fluzone (>3 yrs.) [FFO100] Influenza, seasonal, inject able Seasonal influenza vaccine, injectable, containing preservative, for > 3 years old (Afluria, FluLaval, Fluzone, Fluvirin, Fluarix, Agriflu(>= 18 yo)) Fluzone (>3 yrs.) [SXY258] Influenza, seasonal, inject able Vital Signs Date [...] - Chem istry sodium, serum 140 mmol/L 548-941 4475/05/05 potassium, serum 4.9 mmol/L 3.5-5.2 chloride, serum 99 mmol/L 98-107 carbon dioxide, venous blood 34.3 mmol/L 21.0-32 .0 blood glucose 132 mg/dL 65-110 calcium, serum 10.1 mg/dL 8.5-10.1 urea nitrogen, blood 23 mg/dL 7-18 creatinine, serum 2.00 mg/dL 0.60-1.30 Lab Report: CBC, Renal Panel - Chemistry sodium, serum 139 mmol/L 430-303 8873/01/20 potassium, serum 5.3 mmol/L 3.5-5.2 chloride, serum [...] 4.3-6.0 Encounters Code Encounter Date Provider Facility CPT-03516 Level 4 Est. Patient 15:42:12 CDT Baltazar Childers MD [facility] CPT-03986 Level 4 Est. Patient 11:29:55 CDT Baltazar Childers MD [facility] CPT-96308 Level 4 Est. Patient 14:15:19 CDT Baltazar Childers MD [facility] CPT-82540 Level 4 Est. Patient 12:20:13 CDT Baltazar Childers MD [facility] CPT-66538 Level 4 Est. Patient 14:52:45 KEYSMITH Baltazar Childers MD [facility] CPT-56606 Level 4 Est. Patient 14:18:34 KEYSMITH Baltazar Childers MD [facility] CPT-31871 Level 4 Est. Patient 15:18:29 CDT Baltazar Childers MD [facility] CPT-72354 Level 3 Est. Patient 12:45:34 CDT Baltazar Childers MD [facility] CPT-14275 Level 3 Est. Patient 10:10:11 CDT Baltazar Childers MD [facility] CPT-73541 Level 3 Est. Patient 14:07:50 CDT Baltazar Childers MD [facility] CPT-15234 Level 4 Est. Patient 12:26:10 KEYSMITH Baltazar Childers MD [facility] CPT-64935 Level 4 Est. Patient 14:45:38 CDT Baltazar Childers MD [facility] CPT-27629 Level 4 New Patient 12:30:48 CDT Baltazar hinton MD [facility] Procedures Code Procedure Name Date Entry Date Standard Desc ription CPT-34880 Venipuncture Draw Fee 12:10:27 KEYSMITH CPT-41684 Fluzone Quadrivalent Intramuscular Suspe nsion 0.5 ML 10:49:13 CDT CPT-98700 First Vx Component - Ix admi n via ID IM or jet inj without physician counseling 15:17:19 KEYSMITH CPT-59548 Pneumovax 23 15:17:19 KEYSMITH CPT-77941 Pneumovax 14:52:45 KEYSMITH CPT-61579 Venipuncture Draw Fee 14:06:30 KEYSMITH CPT-000 Give Appropriate Flu Vaccine 14:18:34 KEYSMITH 2 CPT-75450 Administration single or combination vac cine inc oral 14:46:00 KEYSMITH CPT-36899 Influenza split virus > age 3 14:46:00 KEYSMITH CPT-OV Office Visit 19:13:16 CDT CPT-50899 Zostavax 18:41:56 CDT CPT-32484 Administration single or combination vac cine inc oral 12:56:39 CDT CPT-02213 Zoster Vaccine (Zostavax) 12:56:39 CDT 2012 CPT-19304 Venipuncture Draw Fee 10:58:57 CDT CPT-06362 Sono pelvis non OB uterus ovaries cervix 17:45:04 CDT CPT-30907 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
--- OUTSIDE RECORDS SUMMARY | 2019-10-27 13:17 | XMS REPORT | Clinical Summary ---
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 Benign neoplasm of colon PERIPHERAL NEUROPATHY 356.9 [...] of kidney and ureter CAD 414.00 Active Galdys Arce [facility] ronary atherosclerosis of unspecified type of vessel, [place] [...] 1 tab daily for HTN AMLODIPINE BESYLATE 64783535444 Active KENDALL Juarez Active SYNTHROID 0.1 MG TAB 1 tablet by mouth daily LE VOTHYROXINE SODIUM 98975427443 Active Shonna Parker APRN Active GLIPIZIDE 10 MG TAB take 2 tablets twice daily GLIPIZIDE 78719513172 Active Baltazar Childers MD Active SUCRALFATE 1 GM TABS 1 four times a day to coat the stomach 2015 SUCRALFATE 86924100588 No Longer Active Baltazar Childers MD Active PEN NEEDLES 31G X 6 MM MISC use 1 daily INSULIN PEN NEEDLE 35071738022 Active Gato Rae MD Active TOUJEO SOLOSTAR 300 UNIT/ML SC SOPN 10 units SC daily INSULIN GLARGINE 94499925371 No Longer Active Martitatung ARGUETA Active LANTUS SOLOSTAR 100 UNIT/ML SC SOPN 10 units SC daily INSULIN GLARGINE 37971137226 Active KENDALL Juarez Active NAPROXEN SODIUM 220 MG ORAL TABS 1 three times a day as needed 2 NAPROXEN SODIUM 92054845077 No Longer Active Baltazar Childers MD Active ATORVASTATIN CALCIUM 20 MG ORAL TABS Take 1 tab daily ATORVASTATIN CALCIUM 00032800816 Active KENDALL Juarez Active FUROSEMIDE 40 MG TABS Take one by mouth daily FUROSEMIDE 81634853888 Active Baltazar Childers MD Active LISINOPRIL 20 MG TABS Take one by mouth daily at bedtime LISINOPRIL 55587092332 No Longer Active Baltazar Childers MD Active ONETOUCH ULTRA BLUE STRP Test twice a day GLUCO SE BLOOD 54626089171 No Longer Active Baltazar Childers MD Active TRUEPLUS LANCETS 33G MISC Test twice a day LANCET S 74876158182 Active KENDALL Juarez Active TRUEDRAW LANCING DEVICE MISC Test twice a day L ANCET DEVICES 50507303618 Active Baltazar Childers MD Active TRUETRACK TEST STRP Test twice a day GLUCOSE BLOO D 94831897615 Active KENDALL Juarez Active TRUETRACK BLOOD GLUCOSE W/DEVICE KIT Test twice a day BLOOD GLUCOSE MONITORING SUPPL 55712566080 Active Batlazar Childers MD Activ e HYDROCODONE-ACETAMINOPHEN 7.5-325 MG TABS Take 1 tab every 6-8 hour s PRN HYDROCODONE-ACETAMINOPHEN 33887148815 Active Baltazar Childers MD Active NORTRIPTYLINE HCL 50 MG CAPS 1 every night for neuropathy 4 NORTRIPTYLINE HCL 91175411787 Active Baltazar Childers MD Acti ve GABAPENTIN 300 MG CAPS 1 three times a day GABAPE NTIN 54600244334 Active Baltazar Childers MD Active GABAPENTIN 300 MG CAPS 1 po qd x 2 days, then 1 po BID x 2 d ays, then 1 po TID GABAPENTIN 05073973558 No Longer Active Baltazar silverman MD Active TRAMADOL HCL 50 MG TABS 1 twice a day as needed for pain TRAMADOL HCL 75070428780 Active Baltazar Childers MD Active NAPROXEN 500 MG TABS 1 tablet by mouth twice daily NAPROXEN 53797188872 No Longer Active Baltazar Childers MD Active PROAIR HFA 108 (90 BASE) MCG/ACT AERS 2 puffs four times a d ay as needed ALBUTEROL SULFATE 01147110050 Active Baltazar Childers MD Active DEPO-TESTOSTERONE 200 MG/ML OIL as directed RUFINO TOSTERONE CYPIONATE 31501742594 No Longer Active Baltazar Childers MD Active LIPITOR 20 MG TABS Take one by mouth daily in evening ATORVASTATIN CALCIUM 70469226809 No Longer Active Baltazar Childers MD Activ e CRESTOR 10 MG TABS 1 by mouth every day R OSUVASTATIN CALCIUM 00490856949 No Longer Active Baltazar Childers MD Activ e PHENTERMINE HCL 37.5 MG TABS Take one by mouth daily 2 PHENTERMINE HCL 58498955583 No Longer Active Baltazar Childers MD Activ e ROBAXIN-750 750 MG TABS Take one by mouth daily ME THOCARBAMOL 62451244664 Active Baltazar Childers MD Active TIZANIDINE HCL 4 MG TABS 1 daily as needed for muscle spasm 2011 TIZANIDINE HCL 20520432856 No Longer Active Dawna Salazar RN Active [id number] 50-325-40 MG TABS 1 four time s a day as needed for heacache [id number] 64399493540 Active KENDALL Juarez Active SUMATRIPTAN SUCCINATE 100 MG TABS 1 tablet by mouth at onset of migraine as needed SUMATRIPTAN SUCCINATE 71237718896 Active KENDALL Juarez Active LORATADINE 10 MG TABS Take one by mouth daily LORATADINE 25729987392 Active Beth KENDALL Carr Active OMEPRAZOLE 20 MG CPDR Take one by mouth daily OMEPRAZOLE 41222483577 Active Baltazar Cihlders MD Active HYDROXYZINE HCL 25 MG TABS Take one by mouth daily HYDROXYZINE HCL 15360091430 Active Baltazar Childers MD Active ALPRAZOLAM 1 MG TABS 1 tablet by mouth daily at bedtime for restles s leg ALPRAZOLAM 17540157461 Active Baltazar Childers MD Active METFORMIN HCL 1000 MG TABS Take one by mouth twice daily METFORMIN HCL 32233377076 Active Baltazar Childers MD Active NAPROXEN 500 MG TABS 1 tablet by mouth twice daily 201 07/27/22 NAPROXEN 500 MG TABS 020874 NAPROXEN Inactive PHENTERMINE HCL 37.5 MG TABS Take one by mouth daily 2 PHENTERMINE HCL 37.5 MG TABS 321856 PHENTERMINE HCL Inactive SUCRALFATE 1 GM TABS 1 four times a day to coat the stomach 2015 SUCRALFATE 1 GM TABS 033856 SUCRALFATE Inactive NAPROXEN SODIUM 220 MG ORAL TABS 1 three times a day as needed 2 NAPROXEN SODIUM 220 MG ORAL TABS 239013 NAPROXEN SODIUM Inactive TIZANIDINE HCL 4 MG TABS 1 daily as needed for muscle spasm 2011 TIZANIDINE HCL 4 MG TABS 828195 TIZANIDINE HCL Inactiv e GABAPENTIN 300 MG CAPS 1 po qd x 2 days, then 1 po BID x 2 d ays, then 1 po TID GABAPENTIN 300 MG CAPS 264249 GABAPENTIN Inact amie LIPITOR 20 MG TABS Take one by mouth daily in evening LIPITOR 20 MG TABS 785957 ATORVASTATIN CALCIUM Inactive ONETOUCH ULTRA BLUE STRP Test twice a day ONETOUCH ULTRA BLUE STRP GLUCOSE BLOOD Inactive CRESTOR 10 MG TABS 1 by mouth every day C RESTOR 10 MG TABS 951328 ROSUVASTATIN CALCIUM Inactive DEPO-TESTOSTERONE 200 MG/ML OIL as directed 8 DEPO-TESTOSTERONE 200 MG/ML OIL 370852 TESTOSTERONE CYPIONATE Inactive TOUJEO SOLOSTAR 300 UNIT/ML [...] Fluarix, Agriflu(>= 18 yo)) Fluzone (>3 yrs.) [RLQ927] Influenza, seasonal, inject able Seasonal influenza vaccine, injectable, containing preservative, for > 3 years old (Afluria, FluLaval, Fluzone, Fluvirin, Fluarix, Agriflu(>= 18 yo)) Fluzone (>3 yrs.) [ZSL767] Influenza, seasonal, inject able Vital Signs Date [...] C - Chemistry sodium, serum 143 mmol/L 094-152 2503/06/19 potassium, serum 5.9 mmol/L 3.5-5.2 chloride, serum 105 mmol/L 98-107 carbon dioxide, venous blood 30.2 mmol/L 21.0-32 .0 blood glucose 189 mg/dL 65-110 calcium, serum 9.7 mg/dL 8.5-10.1 urea nitrogen, blood 37 mg/dL 7-18 creatinine, serum 2.11 mg/dL 0.55-1.30 hemoglobin A1C, blood, as % of total hemoglobin 8.2 % 4.3-6.0 Lab Report: CBC, Renal Panel - Chemistry sodium, serum 142 mmol/L 307-706 3831/08/11 potassium, serum 4.8 mmol/L 3.5-5.2 chloride, serum [...] mmol/L 21.0-32 .0 sodium, serum 143 mmol/L 216-294 4976/12/19 urea nitrogen, blood 18 mg/dL 7-18 creatinine, serum 1.79 mg/dL 0.55-1.30 alanine aminotransferase (SGPT), serum 34 U/L 12-78 aspartate aminotransferase (SGOT), serum 26 U/L 15-37 calcium, serum 8.9 mg/dL 8.5-10.1 bilirubin, serum, total 0.30 mg/dL 0.00-1.00 cholesterol, serum 214 mg/dL 809-467 1566/12/19 triglyceride, serum, fasting 351 mg/dL 30-200 HDL [...] 4.3-6.0 Encounters Code Encounter Date Provider Facility CPT-47829 Level 4 Est. Patient 14:22:31 CDT Baltazar Childers MD [facility] CPT-21158 Level 4 Est. Patient 15:44:38 [facility] Level 4 Est. Patient 11:34:17 CDT Baltazar Childers MD [facility] CPT-13134 Level 3 Est. Patient 16:40:40 CDT Baltazar Childers MD [facility] CPT-63640 Level 4 Est. Patient 10:41:24 CDT Baltazar Childers MD [facility] CPT-08957 Level 4 Est. Patient 16:01:48 CDT Baltazar Childers MD [facility] CPT-56435 Level 4 Est. Patient 16:54:07 VINYL DIPPER Baltazar Childers MD [facility] CPT-23693 Level 4 Est. Patient 15:42:12 CDT Baltazar Childers MD [facility] CPT-96020 Level 4 Est. Patient 11:29:55 CDT Baltazar Childers MD [facility] CPT-87941 Level 4 Est. Patient 14:15:19 CDT Baltazar Childers MD [facility] CPT-39856 Level 4 Est. Patient 12:20:13 CDT Baltazar Childers MD [facility] CPT-04016 Level 4 Est. Patient 14:52:45 VINYL DIPPER Baltazar Childers MD [facility] CPT-40497 Level 4 Est. Patient 14:18:34 VINYL DIPPER Baltazar Childers MD [facility] CPT-75445 Level 4 Est. Patient 15:18:29 CDT Baltazar Childers MD [facility] CPT-59300 Level 3 Est. Patient 12:45:34 CDT Baltazar Childers MD [facility] CPT-30866 Level 3 Est. Patient 10:10:11 CDT Baltazar Childers MD [facility] CPT-21645 Level 3 Est. Patient 14:07:50 CDT Baltazar Childers MD [facility] CPT-43264 Level 4 Est. Patient 12:26:10 VINYL DIPPER Baltazar Childers MD [facility] CPT-49587 Level 4 Est. Patient 14:45:38 CDT Baltazar Childers MD [facility] CPT-64582 Level 4 New Patient 12:30:48 CDT Baltazar hinton MD [facility] Procedures Code Procedure Name Date Entry Date Standard Desc ription CPT-11288 Venipuncture Draw Fee 12:04:12 CDT CPT-40513 Lipid - LAB USE ONLY 17:39:15 VINYL DIPPER 9 CPT-94280 HGBA1C - LAB USE ONLY 17:39:15 VINYL DIPPER CPT-08429 CMP - LAB USE ONLY 17:39:14 VINYL DIPPER CPT-27641 Venipuncture Draw Fee 17:39:14 VINYL DIPPER CPT-16471 First Vx - Ix admin via ID I M or jet injects without counseling by physician 16:55:17 VINYL DIPPER CPT-16039 Fluzone Quadrivalent Intramuscular Suspe nsion 0.5 ML 16:55:17 VINYL DIPPER CPT-68180 Renal Panel - LAB USE ONLY 17:39:20 CDT 201 10/31/07 CPT-21043 CBC - LAB USE ONLY 17:39:20 CDT CPT-80643 Venipuncture Draw Fee 17:39:20 CDT CPT-16894 Venipuncture Draw Fee 14:33:30 CDT CPT-30899 Renal Panel - LAB USE ONLY 14:33:30 CDT 201 10/31/07 CPT-16514 CBC - LAB USE ONLY 14:33:29 CDT CPT-82458 Venipuncture Draw Fee 14:50:21 VINYL DIPPER CPT-42879 Immunization Single Admin 17:35:35 CDT 2014 CPT-56675 Fluzone Quadrivalent preservative free ( >=3yrs.) 17:35:35 CDT CPT-51429 Venipuncture Draw Fee 12:10:27 VINYL DIPPER CPT-18262 Fluzone Quadrivalent Intramuscular Suspe nsion 0.5 ML 10:49:13 CDT CPT-42474 First Vx Component - Ix admi n via ID IM or jet inj without physician counseling 15:17:19 VINYL DIPPER CPT-69431 Pneumovax 23 15:17:19 VINYL DIPPER CPT-93600 Pneumovax 14:52:45 VINYL DIPPER CPT-04376 Venipuncture Draw Fee 14:06:30 VINYL DIPPER CPT-000 Give Appropriate Flu Vaccine 14:18:34 VINYL DIPPER 2 CPT-05579 Administration single or combination vac cine inc oral 14:46:00 VINYL DIPPER CPT-76167 Influenza split virus > age 3 14:46:00 VINYL DIPPER CPT-OV Office Visit 19:13:16 CDT CPT-59566 Zostavax 18:41:56 CDT CPT-73342 Administration single or combination vac cine inc oral 12:56:39 CDT CPT-47428 Zoster Vaccine (Zostavax) 12:56:39 CDT 2012 CPT-58380 Venipuncture Draw Fee 10:58:57 CDT CPT-29724 Sono pelvis non OB uterus ovaries cervix 17:45:04 CDT CPT-24703 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
--- OUTSIDE RECORDS SUMMARY | 2019-10-27 13:17 | XMS REPORT | Clinical Summary ---
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 Benign neoplasm of colon PERIPHERAL NEUROPATHY [...] TABS Take 1 tab daily ATORVASTATIN CALCIUM 20004863611 Active Kelly Iraheta LPN Active NAPROXEN SODIUM 220 MG ORAL TABS 1 three times a day as needed 2014 NAPROXEN SODIUM 48288680130 Active Baltazar Childers MD Active FUROSEMIDE 40 MG TABS Take one by mouth daily FUROSEMIDE 01528745851 Active Baltazar Childers MD Active LISINOPRIL 20 MG TABS Take one by mouth daily at bedtime LISINOPRIL 23660395792 Active Baltazar Childers MD Active Meteo ProtectTOUCH ULTRA BLUE STRP Test twice a day GLUCO SE BLOOD 53064228755 No Longer Active Baltazar Childers MD Active TRUEPLUS LANCETS 33G MISC Test twice a day LANCET S 59491353066 Active Baltazar Childers MD Active TRUEDRAW LANCING DEVICE MISC Test twice a day L ANCET DEVICES 96481104490 Active Baltazar Childers MD Active TRUETRACK TEST STRP Test twice a day GLUCOSE BLOO D 53608924455 Active Baltazar Childers MD Active TRUETRACK BLOOD GLUCOSE W/DEVICE KIT Test twice a day BLOOD GLUCOSE MONITORING SUPPL 40511588961 Active Baltazar Childers MD Activ e HYDROCODONE-ACETAMINOPHEN 7.5-325 MG TABS Take 1 tab every 6-8 hour s PRN HYDROCODONE-ACETAMINOPHEN 01968794992 Active Kelly Iraheta LPN Active NORTRIPTYLINE HCL 50 MG CAPS 1 every night for neuropathy 4 NORTRIPTYLINE HCL 24301914003 Active Baltazar Childers MD Acti ve GABAPENTIN 300 MG CAPS 1 three times a day GABAPE NTIN 52743248114 Active Kelly Iraheta LPN Active GABAPENTIN 300 MG CAPS 1 po qd x 2 days, then 1 po BID x 2 d ays, then 1 po TID GABAPENTIN 54018644805 No Longer Active Baltazar silverman MD Active TRAMADOL HCL 50 MG TABS 1 twice a day as needed for pain TRAMADOL HCL 62004721746 Active Kelly Iraheta LPN Active NAPROXEN 500 MG TABS 1 tablet by mouth twice daily NAPROXEN 99231208912 No Longer Active Baltazar Childers MD Active PROAIR HFA 108 (90 BASE) MCG/ACT AERS 2 puffs four times a d ay as needed ALBUTEROL SULFATE 65465001332 Active Baltazar Childers MD Active DEPO-TESTOSTERONE 200 MG/ML OIL as directed RUFINO TOSTERONE CYPIONATE 67108335015 No Longer Active Baltazar Childers MD Active LIPITOR 20 MG TABS Take one by mouth daily in evening ATORVASTATIN CALCIUM 17983169417 No Longer Active Baltazar Childers MD Activ e CRESTOR 10 MG TABS 1 by mouth every day R OSUVASTATIN CALCIUM 23594845035 No Longer Active Baltazar Childers MD Activ e PHENTERMINE HCL 37.5 MG TABS Take one by mouth daily 2 PHENTERMINE HCL 55096813246 No Longer Active Baltazar Childers MD Activ e ROBAXIN-750 750 MG TABS Take one by mouth daily ME THOCARBAMOL 13628260092 Active Radha Person APRN Active TIZANIDINE HCL 4 MG TABS 1 daily as needed for muscle spasm 2011 TIZANIDINE HCL 30991517299 No Longer Active Dawna Salazar RN Active DHURQDAICI-RGVP-OOQTIOPO 50-325-40 MG TABS 1 four time s a day as needed for heacache [id number] 56529920654 Active Baltazar Childers MD Active SUMATRIPTAN SUCCINATE 100 MG TABS 1 tablet by mouth at onset of migraine as needed SUMATRIPTAN SUCCINATE 99536182803 Active Melody Paez Active LORATADINE 10 MG TABS Take one by mouth daily LORATADINE 16783935380 Active Melody Paez Active OMEPRAZOLE 20 MG CPDR Take one by mouth daily OMEPRAZOLE 05459623298 Active Baltazar Childers MD Active HYDROXYZINE HCL 25 MG TABS Take one by mouth daily HYDROXYZINE HCL 23304523327 Active Dawna Lew Active GLIPIZIDE 10 MG TABS 1 tablet by mouth twice daily GLIPIZIDE 26456624545 Active Baltazar Childers MD Active ALPRAZOLAM 1 MG TABS 1 tablet by mouth daily at bedtime for restles s leg ALPRAZOLAM 56808817944 Active Baltazar Childers MD Active METFORMIN HCL 1000 MG TABS Take one by mouth twice daily METFORMIN HCL 45310028799 Active Baltazar Childers MD Active TIZANIDINE HCL 4 MG TABS 1 daily as needed for muscle spasm 2011 TIZANIDINE HCL 4 MG TABS 128995 TIZANIDINE HCL Inactiv e PHENTERMINE HCL 37.5 MG TABS Take one by mouth daily 2 PHENTERMINE HCL 37.5 MG TABS 342824 PHENTERMINE HCL Inactive CRESTOR 10 MG TABS 1 by mouth every day C RESTOR 10 MG TABS ROSUVASTATIN CALCIUM Inactive LIPITOR 20 MG TABS Take one by mouth daily in evening LIPITOR 20 MG TABS 846584 ATORVASTATIN CALCIUM Inactive DEPO-TESTOSTERONE 200 MG/ML OIL as directed 8 DEPO-TESTOSTERONE 200 MG/ML OIL 209766 TESTOSTERONE CYPIONATE Inactive NAPROXEN 500 MG TABS 1 tablet by mouth twice daily 201 07/27/22 NAPROXEN 500 MG TABS 545160 NAPROXEN Inactive GABAPENTIN 300 MG CAPS 1 po qd x 2 days, then 1 po BID x 2 d ays, then 1 po TID GABAPENTIN 300 MG CAPS 055290 GABAPENTIN Inact amie ONETOUCH ULTRA BLUE STRP Test twice a day ONETOUCH ULTRA BLUE STRP GLUCOSE BLOOD Inactive Immunizations Vaccine Administration Date Value Standard Floyd cription pneumococcal immunization administered Pneumovax 23 [CVX33] pneumococcal polysaccharide vaccine, 23 valent Seasonal influenza vaccine, injectable, containing preservative, for > 3 years old (Afluria, FluLaval, Fluzone, Fluvirin, Fluarix, Agriflu(>= 18 yo)) Fluzone (>3 yrs.) [[id number]] Influenza, seasonal, inject able Seasonal influenza vaccine, injectable, containing preservative, for > 3 years old (Afluria, FluLaval, Fluzone, Fluvirin, Fluarix, Agriflu(>= 18 yo)) Fluzone (>3 yrs.) [TVB277] Influenza, seasonal, inject able Vital Signs Date [...] - Chem istry sodium, serum 140 mmol/L 950-179 6085/05/05 potassium, serum 4.9 mmol/L 3.5-5.2 chloride, serum 99 mmol/L 98-107 carbon dioxide, venous blood 34.3 mmol/L 21.0-32 .0 blood glucose 132 mg/dL 65-110 calcium, serum 10.1 mg/dL 8.5-10.1 urea nitrogen, blood 23 mg/dL 7-18 creatinine, serum 2.00 mg/dL 0.60-1.30 Lab Report: CBC, Renal Panel - Chemistry sodium, serum 139 mmol/L 246-396 4250/01/20 potassium, serum 5.3 mmol/L 3.5-5.2 chloride, serum [...] Panel - Chemistry sodium, serum 138 mmol/L 866-492 7732/11/23 carbon dioxide, venous blood 32.4 mmol/L 21.0-32 .0 potassium, serum 5.7 mmol/L 3.5-5.2 chloride, serum 98 mmol/L 98-107 blood glucose 136 mg/dL 65-110 urea nitrogen, blood 18 mg/dL 7-18 creatinine, serum 1.71 mg/dL 0.55-1.30 alanine aminotransferase (SGPT), serum 71 U/L 12-78 aspartate aminotransferase (SGOT), serum 34 U/L 15-37 calcium, serum 9.4 mg/dL 8.5-10.1 bilirubin, serum, total 0.40 mg/dL 0.00-1.00 cholesterol, serum 405 mg/dL 240-711 9396/11/23 triglyceride, serum, fasting 709 mg/dL 30-200 HDL [...] 0-19 Encounters Code Encounter Date Provider Facility CPT-20595 Level 4 Est. Patient 15:42:12 CDT Baltazar Childers MD [facility] CPT-33151 Level 4 Est. Patient 11:29:55 CDT Baltazar Childers MD [facility] CPT-14801 Level 4 Est. Patient 14:15:19 CDT Baltazar Childers MD [facility] CPT-84181 Level 4 Est. Patient 12:20:13 CDT Baltazar Childers MD [facility] CPT-72485 Level 4 Est. Patient 14:52:45 LOAN OFFICER Baltazar Childers MD [facility] CPT-79340 Level 4 Est. Patient 14:18:34 LOAN OFFICER Baltazar Childers MD [facility] CPT-25309 Level 4 Est. Patient 15:18:29 CDT Baltazar Childers MD [facility] CPT-70443 Level 3 Est. Patient 12:45:34 CDT Baltazar Childers MD [facility] CPT-26205 Level 3 Est. Patient 10:10:11 CDT Baltazar Childers MD [facility] CPT-20940 Level 3 Est. Patient 14:07:50 CDT Baltazar Childers MD [facility] CPT-61042 Level 4 Est. Patient 12:26:10 LOAN OFFICER Baltazar Childers MD [facility] CPT-72420 Level 4 Est. Patient 14:45:38 CDT Baltazar Childers MD [facility] CPT-60192 Level 4 New Patient 12:30:48 CDT Baltazar hinton MD [facility] Procedures Code Procedure Name Date Entry Date Standard Desc ription CPT-04446 Immunization Single Admin 17:35:35 CDT 2014 CPT-66245 Fluzone Quadrivalent preservative free ( >=3yrs.) 17:35:35 CDT CPT-63596 Venipuncture Draw Fee 12:10:27 LOAN OFFICER CPT-67991 Fluzone Quadrivalent Intramuscular Suspe nsion 0.5 ML 10:49:13 CDT CPT-36240 First Vx Component - Ix admi n via ID IM or jet inj without physician counseling 15:17:19 LOAN OFFICER CPT-35252 Pneumovax 23 15:17:19 LOAN OFFICER CPT-75167 Pneumovax 14:52:45 LOAN OFFICER CPT-29815 Venipuncture Draw Fee 14:06:30 LOAN OFFICER CPT-000 Give Appropriate Flu Vaccine 14:18:34 LOAN OFFICER 2 CPT-76096 Administration single or combination vac cine inc oral 14:46:00 LOAN OFFICER CPT-04894 Influenza split virus > age 3 14:46:00 LOAN OFFICER CPT-OV Office Visit 19:13:16 CDT CPT-29094 Zostavax 18:41:56 CDT CPT-06798 Administration single or combination vac cine inc oral 12:56:39 CDT CPT-67852 Zoster Vaccine (Zostavax) 12:56:39 CDT 2012 CPT-08613 Venipuncture Draw Fee 10:58:57 CDT CPT-15914 Sono pelvis non OB uterus ovaries cervix 17:45:04 CDT CPT-70630 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
--- OUTSIDE RECORDS SUMMARY | 2019-10-27 13:17 | XMS REPORT | Clinical Summary ---
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 Benign neoplasm of colon PERIPHERAL NEUROPATHY [...] ronary atherosclerosis of unspecified type of vessel, [place] or graft OTH NONSPC ABN FINDNG RAD&OTH [...] Mellitus,Type II,controlled w/neurologic complications 250 .60 Active aBltazar Childers MD Diabetes mellitus wi th neurological manifestations, type II or unspecified type, not stated as uncontrolled Diabetes mellitus, type II, uncontrolled 250.02 Active Baltzaar Childers MD Diabetes mellitus without me ntion of complication, type II or unspecified type, uncontrolled Heartburn 787.1 Active Baltazar Childers MD Heartburn COLON POLYPS ICD-211.3 Inactive Lolis Thomas APR N Medication List Medication Instructions Start Date Stop Date Generic Name NDC Status Provider Patient Instruction SUCRALFATE 1 GM TABS 1 four times a day to coat the stomach SUCRALFATE 28044172563 Active Baltazar Childers MD Active PEN NEEDLES 31G X 6 MM MISC use 1 daily INSULIN PEN NEEDLE 45652597295 Active Bella Suarez MEDICAL COLLECTIONS REPRESENTATIVE Active TOUJEO SOLOSTAR 300 UNIT/ML SC SOPN 10 units SC daily INSULIN GLARGINE 12666306161 No Longer Active Martita Godinez RMA Active LANTUS SOLOSTAR 100 UNIT/ML SC SOPN 10 units SC daily INSULIN GLARGINE 17477246011 Active KENDALL Juarez Active NAPROXEN SODIUM 220 MG ORAL TABS 1 three times a day as needed 2 NAPROXEN SODIUM 24277437276 No Longer Active Baltazar Childers MD Active ATORVASTATIN CALCIUM 20 MG ORAL TABS Take 1 tab daily ATORVASTATIN CALCIUM 78185924693 Active KENDALL Juarez Active FUROSEMIDE 40 MG TABS Take one by mouth daily FUROSEMIDE 15529185161 Active KENDALL Juarez Active LISINOPRIL 20 MG TABS Take one by mouth daily at bedtime LISINOPRIL 17590814912 Active Baltazar Childers MD Active ONETOUCH ULTRA BLUE STRP Test twice a day GLUCO SE BLOOD 36836883762 No Longer Active Baltazar Childers MD Active TRUEPLUS LANCETS 33G MISC Test twice a day LANCET S 38949668715 Active KENDALL Juarez Active TRUEDRAW LANCING DEVICE MISC Test twice a day L ANCET DEVICES 42017146274 Active Baltazar Childers MD Active TRUETRACK TEST STRP Test twice a day GLUCOSE BLOO D 15784898505 Active KENDALL Juarez Active TRUETRACK BLOOD GLUCOSE W/DEVICE KIT Test twice a day BLOOD GLUCOSE MONITORING SUPPL 30575978327 Active Baltazar Childers MD Activ e HYDROCODONE-ACETAMINOPHEN 7.5-325 MG TABS Take 1 tab every 6-8 hour s PRN HYDROCODONE-ACETAMINOPHEN 91701224387 Active Baltazar Childers MD Active NORTRIPTYLINE HCL 50 MG CAPS 1 every night for neuropathy 4 NORTRIPTYLINE HCL 52166002545 Active KENDALL Juarez Acti ve GABAPENTIN 300 MG CAPS 1 three times a day GABAPE NTIN 06497508959 Active Baltazar Childers MD Active GABAPENTIN 300 MG CAPS 1 po qd x 2 days, then 1 po BID x 2 d ays, then 1 po TID GABAPENTIN 73685418929 No Longer Active Baltazar silverman MD Active TRAMADOL HCL 50 MG TABS 1 twice a day as needed for pain TRAMADOL HCL 79193514016 Active Baltazar Childers MD Active NAPROXEN 500 MG TABS 1 tablet by mouth twice daily NAPROXEN 57132301963 No Longer Active Baltazar Childers MD Active PROAIR HFA 108 (90 BASE) MCG/ACT AERS 2 puffs four times a d ay as needed ALBUTEROL SULFATE 33301988317 Active Baltazar Childers MD Active DEPO-TESTOSTERONE 200 MG/ML OIL as directed RUFINO TOSTERONE CYPIONATE 22705570436 No Longer Active Baltazar Childers MD Active LIPITOR 20 MG TABS Take one by mouth daily in evening ATORVASTATIN CALCIUM 06186411257 No Longer Active Baltazar Childers MD Activ e CRESTOR 10 MG TABS 1 by mouth every day R OSUVASTATIN CALCIUM 01204850933 No Longer Active Baltazar Childers MD Activ e PHENTERMINE HCL 37.5 MG TABS Take one by mouth daily 2 PHENTERMINE HCL 57523859423 No Longer Active Baltazar Childers MD Activ e ROBAXIN-750 750 MG TABS Take one by mouth daily ME THOCARBAMOL 87011488174 Active Baltazar Childers MD Active TIZANIDINE HCL 4 MG TABS 1 daily as needed for muscle spasm 2011 TIZANIDINE HCL 04943055159 No Longer Active Dawna Salazar RN Active GOIKEVIKPS-CWWU-STRBFISM 50-325-40 MG TABS 1 four time s a day as needed for heacache [id number] 64781825503 Active Baltazar Childers MD Active SUMATRIPTAN SUCCINATE 100 MG TABS 1 tablet by mouth at onset of migraine as needed SUMATRIPTAN SUCCINATE 31039866771 Active Bella STEPHEN RN Active LORATADINE 10 MG TABS Take one by mouth daily LORATADINE 19047003390 Active Baltazar Childers MD Active OMEPRAZOLE 20 MG CPDR Take one by mouth daily OMEPRAZOLE 05055994854 Active Argentina Lyons Active HYDROXYZINE HCL 25 MG TABS Take one by mouth daily HYDROXYZINE HCL 02245593308 Active Baltazar Childers MD Active GLIPIZIDE 10 MG TABS 1 tablet by mouth twice daily GLIPIZIDE 78491769960 Active KENDALL Juarez Active ALPRAZOLAM 1 MG TABS 1 tablet by mouth daily at bedtime for restles s leg ALPRAZOLAM 80880700694 Active Baltazar Childers MD Active METFORMIN HCL 1000 MG TABS Take one by mouth twice daily METFORMIN HCL 18270108645 Active Baltazar Childers MD Active TIZANIDINE HCL 4 MG TABS 1 daily as needed for muscle spasm 2011 TIZANIDINE HCL 4 MG TABS 125870 TIZANIDINE HCL Inactiv e PHENTERMINE HCL 37.5 MG TABS Take one by mouth daily 2 PHENTERMINE HCL 37.5 MG TABS 737771 PHENTERMINE HCL Inactive CRESTOR 10 MG TABS 1 by mouth every day C RESTOR 10 MG TABS 122043 ROSUVASTATIN CALCIUM Inactive LIPITOR 20 MG TABS Take one by mouth daily in evening LIPITOR 20 MG TABS 363477 ATORVASTATIN CALCIUM Inactive DEPO-TESTOSTERONE 200 MG/ML OIL as directed 8 DEPO-TESTOSTERONE 200 MG/ML OIL 936788 TESTOSTERONE CYPIONATE Inactive NAPROXEN 500 MG TABS 1 tablet by mouth twice daily 201 07/27/22 NAPROXEN 500 MG TABS 409231 NAPROXEN Inactive GABAPENTIN 300 MG CAPS 1 po qd x 2 days, then 1 po BID x 2 d ays, then 1 po TID GABAPENTIN 300 MG CAPS 911490 GABAPENTIN Inact amie ONETOUCH ULTRA BLUE STRP Test twice a day ONETOUCH ULTRA BLUE STRP GLUCOSE BLOOD Inactive NAPROXEN SODIUM 220 MG ORAL TABS 1 three times a day as needed 2 NAPROXEN SODIUM 220 MG ORAL TABS 983782 NAPROXEN SODIUM Inactive TOUJEO SOLOSTAR 300 UNIT/ML [...] Fluarix, Agriflu(>= 18 yo)) Fluzone (>3 yrs.) [OJP360] Influenza, seasonal, inject able Seasonal influenza vaccine, injectable, containing preservative, for > 3 years old (Afluria, FluLaval, Fluzone, Fluvirin, Fluarix, Agriflu(>= 18 yo)) Fluzone (>3 yrs.) [DDL043] Influenza, seasonal, inject able Vital Signs Date [...] C - Chemistry sodium, serum 139 mmol/L 519-889 5877/07/07 potassium, serum 4.5 mmol/L 3.5-5.2 chloride, serum [...] 7.9 % 4.3-6.0 sodium, serum 139 mmol/L 282-016 3409/02/04 potassium, serum 5.4 mmol/L 3.5-5.2 chloride, serum [...] Panel - Chemistry sodium, serum 141 mmol/L 389-903 0378/08/08 potassium, serum 4.9 mmol/L 3.5-5.2 chloride, serum [...] mg/dL Encounters Code Encounter Date Provider Facility CPT-78779 Level 4 Est. Patient 11:34:17 CDT Baltazar Childers MD [facility] CPT-31831 Level 3 Est. Patient 16:40:40 CDT Baltazar Childers MD [facility] CPT-68615 Level 4 Est. Patient 10:41:24 CDT Baltazar Childers MD [facility] CPT-59568 Level 4 Est. Patient 16:01:48 CDT Baltazar Childers MD [facility] CPT-65707 Level 4 Est. Patient 16:54:07 DATA ENTRY SUPERVISOR Baltazar Childers MD [facility] CPT-85227 Level 4 Est. Patient 15:42:12 CDT Baltazar Childers MD [facility] CPT-49715 Level 4 Est. Patient 11:29:55 CDT Baltazar Childers MD [facility] CPT-82033 Level 4 Est. Patient 14:15:19 CDT Baltazar Childers MD [facility] CPT-02221 Level 4 Est. Patient 12:20:13 CDT Baltazar Childers MD [facility] CPT-57493 Level 4 Est. Patient 14:52:45 DATA ENTRY SUPERVISOR Baltazar Childers MD [facility] CPT-77246 Level 4 Est. Patient 14:18:34 DATA ENTRY SUPERVISOR Baltazar Childers MD [facility] CPT-65029 Level 4 Est. Patient 15:18:29 CDT Baltazar Childers MD [facility] CPT-49606 Level 3 Est. Patient 12:45:34 CDT Baltazar Childers MD [facility] CPT-56996 Level 3 Est. Patient 10:10:11 CDT Baltazar Childers MD [facility] CPT-60998 Level 3 Est. Patient 14:07:50 CDT Baltazar Childers MD [facility] CPT-86102 Level 4 Est. Patient 12:26:10 DATA ENTRY SUPERVISOR Baltazar Childers MD [facility] CPT-43091 Level 4 Est. Patient 14:45:38 CDT Baltazar Childers MD [facility] CPT-39305 Level 4 New Patient 12:30:48 CDT Baltazar hinton MD [facility] Procedures Code Procedure Name Date Entry Date Standard Desc ription CPT-02452 Renal Panel - LAB USE ONLY 17:39:20 CDT 201 10/31/07 CPT-13256 CBC - LAB USE ONLY 17:39:20 CDT CPT-22644 Venipuncture Draw Fee 17:39:20 CDT CPT-73569 Venipuncture Draw Fee 14:33:30 CDT CPT-30654 Renal Panel - LAB USE ONLY 14:33:30 CDT 201 10/31/07 CPT-71725 CBC - LAB USE ONLY 14:33:29 CDT CPT-32275 Venipuncture Draw Fee 14:50:21 DATA ENTRY SUPERVISOR CPT-18915 Immunization Single Admin 17:35:35 CDT 2014 CPT-04091 Fluzone Quadrivalent preservative free ( >=3yrs.) 17:35:35 CDT CPT-00825 Venipuncture Draw Fee 12:10:27 DATA ENTRY SUPERVISOR CPT-75921 Fluzone Quadrivalent Intramuscular Suspe nsion 0.5 ML 10:49:13 CDT CPT-45325 First Vx Component - Ix admi n via ID IM or jet inj without physician counseling 15:17:19 DATA ENTRY SUPERVISOR CPT-60611 Pneumovax 23 15:17:19 DATA ENTRY SUPERVISOR CPT-93052 Pneumovax 14:52:45 DATA ENTRY SUPERVISOR CPT-49704 Venipuncture Draw Fee 14:06:30 DATA ENTRY SUPERVISOR CPT-000 Give Appropriate Flu Vaccine 14:18:34 DATA ENTRY SUPERVISOR 2 CPT-88820 Administration single or combination vac cine inc oral 14:46:00 DATA ENTRY SUPERVISOR CPT-65239 Influenza split virus > age 3 14:46:00 DATA ENTRY SUPERVISOR CPT-OV Office Visit 19:13:16 CDT CPT-16672 Zostavax 18:41:56 CDT CPT-26967 Administration single or combination vac cine inc oral 12:56:39 CDT CPT-67652 Zoster Vaccine (Zostavax) 12:56:39 CDT 2012 CPT-87421 Venipuncture Draw Fee 10:58:57 CDT CPT-27658 Sono pelvis non OB uterus ovaries cervix 17:45:04 CDT CPT-76375 Sono retroperitoneal complete kidneys an d bladder 17:14:36 CDT CPT-OV Office Visit 14:59:38 DATA ENTRY SUPERVISOR CPT-J1070 Depo Testosterone 100 mg 14:50:13 CDT 03/05 CPT-24004 Abx/Therapy Injection 14:50:13 CDT CPT-95979 Administration single or combination vac cine inc oral 14:34:43 CDT CPT-22685 Influenza split virus > age 3 14:34:43 CDT CPT-J1070 Depo Testosterone 100 mg 17:37:13 CDT 01/11 CPT-10323 Abx/Therapy Injection 17:37:13 CDT CPT-45235 Venipuncture Draw Fee 16:30:13 CDT CPT-34650 Venipuncture Draw Fee 16:29:43 CDT CPT-J1070 Depo Testosterone 100 mg 14:45:38 CDT 01/11
--- OUTSIDE RECORDS SUMMARY | 2019-10-27 13:18 | XMS REPORT | Clinical Summary ---
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 Benign neoplasm of colon PERIPHERAL NEUROPATHY [...] ronary atherosclerosis of unspecified type of vessel, marshall [...] day to coat the stomach 2015 SUCRALFATE [id number] No Longer Active Baltazar Childers MD Active PEN NEEDLES 31G X 6 MM MISC use 1 daily INSULIN PEN NEEDLE 21683924376 Active Bella Suarez LINEMAN APPRENTICE Active TOUJEO SOLOSTAR 300 UNIT/ML SC SOPN 10 units SC daily INSULIN GLARGINE 80686665884 No Longer Active Martita Godinez RMA Active LANTUS SOLOSTAR 100 UNIT/ML SC SOPN 10 units SC daily INSULIN GLARGINE 95136946494 Active Baltazar Childers MD Active NAPROXEN SODIUM 220 MG ORAL TABS 1 three times a day as needed 2 NAPROXEN SODIUM 66415755405 No Longer Active Baltazar Childers MD Active ATORVASTATIN CALCIUM 20 MG ORAL TABS Take 1 tab daily ATORVASTATIN CALCIUM 84131720194 Active Baltazar Childers MD Active FUROSEMIDE 40 MG TABS Take one by mouth daily FUROSEMIDE 62544284674 Active Baltazar Childers MD Active LISINOPRIL 20 MG TABS Take one by mouth daily at bedtime LISINOPRIL 86877416157 Active Baltazar Childers MD Active ONETOUCH ULTRA BLUE STRP Test twice a day GLUCO SE BLOOD 33763490873 No Longer Active Baltazar Childers MD Active TRUEPLUS LANCETS 33G MISC Test twice a day LANCET S 51313613595 Active KENDALL Juarez Active TRUEDRAW LANCING DEVICE MISC Test twice a day L ANCET DEVICES 36342971146 Active Baltazar Childers MD Active TRUETRACK TEST STRP Test twice a day GLUCOSE BLOO D 86515961168 Active KENDALL Juarez Active TRUETRACK BLOOD GLUCOSE W/DEVICE KIT Test twice a day BLOOD GLUCOSE MONITORING SUPPL 49259842127 Active Baltazar Childers MD Activ e HYDROCODONE-ACETAMINOPHEN 7.5-325 MG TABS Take 1 tab every 6-8 hour s PRN HYDROCODONE-ACETAMINOPHEN 30193122947 Active Baltazar Childers MD Active NORTRIPTYLINE HCL 50 MG CAPS 1 every night for neuropathy 4 NORTRIPTYLINE HCL 57507531881 Active Baltazar Childers MD Acti ve GABAPENTIN 300 MG CAPS 1 three times a day GABAPE NTIN 18867085057 Active Baltazar Childers MD Active GABAPENTIN 300 MG CAPS 1 po qd x 2 days, then 1 po BID x 2 d ays, then 1 po TID GABAPENTIN 98674162590 No Longer Active Baltazar silverman MD Active TRAMADOL HCL 50 MG TABS 1 twice a day as needed for pain TRAMADOL HCL 87385160654 Active Baltazar Childers MD Active NAPROXEN 500 MG TABS 1 tablet by mouth twice daily NAPROXEN 39242475672 No Longer Active Baltazar Childers MD Active PROAIR HFA 108 (90 BASE) MCG/ACT AERS 2 puffs four times a d ay as needed ALBUTEROL SULFATE 33334395420 Active KENDALL Juarez Active DEPO-TESTOSTERONE 200 MG/ML OIL as directed RUFINO TOSTERONE CYPIONATE 01523270847 No Longer Active Baltazar Childers MD Active LIPITOR 20 MG TABS Take one by mouth daily in evening ATORVASTATIN CALCIUM 82407954851 No Longer Active Baltazar Childers MD Activ e CRESTOR 10 MG TABS 1 by mouth every day R OSUVASTATIN CALCIUM 25667591380 No Longer Active Baltazar Childers MD Activ e PHENTERMINE HCL 37.5 MG TABS Take one by mouth daily 2 PHENTERMINE HCL 65644105118 No Longer Active Baltazar Childers MD Activ e ROBAXIN-750 750 MG TABS Take one by mouth daily ME THOCARBAMOL 70399303278 Active Baltazar Childers MD Active TIZANIDINE HCL 4 MG TABS 1 daily as needed for muscle spasm 2011 TIZANIDINE HCL 07964522799 No Longer Active Dawna Salazar RN Active [id number] 50-325-40 MG TABS 1 four time s a day as needed for heacache [id number] 30810674755 Active Baltazar Childers MD Active SUMATRIPTAN SUCCINATE 100 MG TABS 1 tablet by mouth at onset of migraine as needed SUMATRIPTAN SUCCINATE 44298063394 Active Baltazar bynum MD Active LORATADINE 10 MG TABS Take one by mouth daily LORATADINE 07953449416 Active Baltazar Childers MD Active OMEPRAZOLE 20 MG CPDR Take one by mouth daily OMEPRAZOLE 37774506801 Active Baltazar Childers MD Active HYDROXYZINE HCL 25 MG TABS Take one by mouth daily HYDROXYZINE HCL 54604948293 Active Baltazar Childers MD Active GLIPIZIDE 10 MG TABS 1 tablet by mouth twice daily GLIPIZIDE 22456641412 Active Baltazar Childers MD Active ALPRAZOLAM 1 MG TABS 1 tablet by mouth daily at bedtime for restles s leg ALPRAZOLAM 64020728802 Active Baltazar Childers MD Active METFORMIN HCL 1000 MG TABS Take one by mouth twice daily METFORMIN HCL 02223266394 Active Baltazar Childers MD Active TIZANIDINE HCL 4 MG TABS 1 daily as needed for muscle spasm 2011 TIZANIDINE HCL 4 MG TABS 505417 TIZANIDINE HCL Inactiv e PHENTERMINE HCL 37.5 MG TABS Take one by mouth daily 2 PHENTERMINE HCL 37.5 MG TABS 122209 PHENTERMINE HCL Inactive CRESTOR 10 MG TABS 1 by mouth every day C RESTOR 10 MG TABS 137737 ROSUVASTATIN CALCIUM Inactive LIPITOR 20 MG TABS Take one by mouth daily in evening LIPITOR 20 MG TABS 717617 ATORVASTATIN CALCIUM Inactive DEPO-TESTOSTERONE 200 MG/ML OIL as directed 8 DEPO-TESTOSTERONE 200 MG/ML OIL 599950 TESTOSTERONE CYPIONATE Inactive NAPROXEN 500 MG TABS 1 tablet by mouth twice daily 201 07/27/22 NAPROXEN 500 MG TABS 195581 NAPROXEN Inactive GABAPENTIN 300 MG CAPS 1 po qd x 2 days, then 1 po BID x 2 d ays, then 1 po TID GABAPENTIN 300 MG CAPS 758476 GABAPENTIN Inact amie ONETOUCH ULTRA BLUE STRP Test twice a day ONETOUCH ULTRA BLUE STRP GLUCOSE BLOOD Inactive NAPROXEN SODIUM 220 MG ORAL TABS 1 three times a day as needed 2 NAPROXEN SODIUM 220 MG ORAL TABS 845908 NAPROXEN SODIUM Inactive TOUJEO SOLOSTAR 300 UNIT/ML SC SOPN 10 units SC daily TOUJEO SOLOSTAR 300 UNIT/ML SC SOPN INSULIN GLARGINE Inac tive SUCRALFATE 1 GM TABS 1 four times a day to coat the stomach 2015 SUCRALFATE 1 GM TABS 688273 SUCRALFATE Inactive Immunizations Vaccine Administration Date Value Standard Floyd cription pneumococcal immunization administered Pneumovax 23 [CVX33] pneumococcal polysaccharide vaccine, 23 valent Seasonal influenza vaccine, injectable, containing preservative, for > 3 years old (Afluria, FluLaval, Fluzone, Fluvirin, Fluarix, Agriflu(>= 18 yo)) Fluzone (>3 yrs.) [AMQ795] Influenza, seasonal, inject able Seasonal influenza vaccine, injectable, containing preservative, for > 3 years old (Afluria, FluLaval, Fluzone, Fluvirin, Fluarix, Agriflu(>= 18 yo)) Fluzone (>3 yrs.) [[id number]] Influenza, seasonal, inject able Vital Signs Date [...] C - Chemistry sodium, serum 139 mmol/L 941-772 6740/07/07 potassium, serum 4.5 mmol/L 3.5-5.2 chloride, serum [...] 7.9 % 4.3-6.0 sodium, serum 139 mmol/L 459-269 5009/02/04 potassium, serum 5.4 mmol/L 3.5-5.2 chloride, serum [...] Panel - Chemistry sodium, serum 143 mmol/L 230-506 7773/12/19 carbon dioxide, venous blood 32.5 mmol/L 21.0-32 .0 potassium, serum 4.9 mmol/L 3.5-5.2 chloride, serum 101 mmol/L 98-107 blood glucose 129 mg/dL 65-110 urea nitrogen, blood 18 mg/dL 7-18 creatinine, serum 1.79 mg/dL 0.55-1.30 alanine aminotransferase (SGPT), serum 34 U/L 12-78 aspartate aminotransferase (SGOT), serum 26 U/L 15-37 calcium, serum 8.9 mg/dL 8.5-10.1 bilirubin, serum, total 0.30 mg/dL 0.00-1.00 cholesterol, serum 214 mg/dL 452-646 1525/12/19 triglyceride, serum, fasting 351 mg/dL 30-200 HDL cholesterol, serum 52 mg/dL 32-96 LDL cholesterol, serum 92 mg/dL 0-130 Lab Report: HGBA1C - Chemistry hemoglobin A1C, blood, as % of total hemoglobin 7.3 % 4.3-6.0 Lab Report: Renal Panel - Chemistry sodium, serum 141 mmol/L 548-237 3967/08/08 potassium, serum 4.9 mmol/L 3.5-5.2 chloride, serum 101 mmol/L 98-107 carbon dioxide, venous blood 34.1 mmol/L 21.0-32 .0 creatinine, serum 1.98 mg/dL 0.55-1.30 blood glucose 193 mg/dL 65-110 urea nitrogen, blood 30 mg/dL 7-18 calcium, serum 9.8 mg/dL 8.5-10.1 Encounters Code Encounter Date Provider Facility CPT-91261 Level 4 Est. Patient 11:34:17 CDT Baltazar Childers MD [facility]-33405 Level 3 Est. Patient 16:40:40 CDT Baltazar Childers MD [facility]-27132 Level 4 Est. Patient 10:41:24 CDT Baltazar Childers MD [facility]-60995 Level 4 Est. Patient 16:01:48 CDT Baltazar Childers MD [facility]-37986 Level 4 Est. Patient 16:54:07 [employer]GER [employer] Baltazar Childers MD [facility]-66978 Level 4 Est. Patient 15:42:12 CDT Baltazar Childers MD [facility] CPT-41208 Level 4 Est. Patient 11:29:55 CDT Baltazar Childers MD [facility]-74639 Level 4 Est. Patient 14:15:19 CDT Baltazar Childers MD [facility]-44424 Level 4 Est. Patient 12:20:13 CDT Baltazar Childers MD [facility]-93350 Level 4 Est. 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 Patient 14:18:34 PASSENGER [employer] SUPERVISOR Baltazar Childers MD [facility]-79928 Level 4 Est. Patient 15:18:29 CDT Baltazar Childers MD [facility]-97799 Level 3 Est. Patient 12:45:34 CDT Baltazar Childers MD [facility]-83215 Level 3 Est. Patient 10:10:11 CDT Baltazar Childers MD [facility] CPT-19308 Level 3 Est. Patient 14:07:50 CDT Baltazar Childers MD [facility] CPT-49539 Level 4 Est. Patient 12:26:10 P[employer]ENGER [employer] SUPERVISOR Baltazar Childers MD [facility] CPT-70672 Level 4 Est. Patient 14:45:38 CDT Baltazar Childers MD [facility] CPT-31024 Level 4 New Patient 12:30:48 CDT Baltazar hinton MD [facility] Procedures Code Procedure Name Date Entry Date Standard Desc ription CPT-64764 Lipid - LAB USE ONLY 17:39:15 P[employer]ENGER [employer]PER[employer] 9 CPT-50516 HGBA1C - LAB USE ONLY 17:39:15 P[employer]ENGER [employer] SUPERVISOR CPT-26557 CMP - LAB USE ONLY 17:39:14 P[employer]ENGER [employer]PER[employer] CPT-57754 Venipuncture Draw Fee 17:39:14 P[employer]ENGER [employer]PER[employer] CPT-89523 First Vx - Ix admin via ID I M or jet injects without counseling by physician 16:55:17 PASSENGER [employer]PER[employer] CPT-60819 Fluzone Quadrivalent Intramuscular Suspe nsion 0.5 ML 16:55:17 P[employer]ENGER [employer]PER[employer] CPT-30060 Renal Panel - LAB USE ONLY 17:39:20 CDT 201 10/31/07 CPT-55055 CBC - LAB USE ONLY 17:39:20 CDT CPT-60616 Venipuncture Draw Fee 17:39:20 CDT CPT-43498 Venipuncture Draw Fee 14:33:30 CDT CPT-84543 Renal Panel - LAB USE ONLY 14:33:30 CDT 201 10/31/07 CPT-37228 CBC - LAB USE ONLY 14:33:29 CDT CPT-18121 Venipuncture Draw Fee 14:50:21 P[employer]ENGER [employer]PER[employer] CPT-42268 Immunization Single Admin 17:35:35 CDT 2014 CPT-67204 Fluzone Quadrivalent preservative free ( >=3yrs.) 17:35:35 CDT CPT-83083 Venipuncture Draw Fee 12:10:27 P[employer]ENGER [employer]PER[employer] CPT-52902 Fluzone Quadrivalent Intramuscular Suspe nsion 0.5 ML 10:49:13 CDT CPT-72778 First Vx Component - Ix admi n via ID IM or jet inj without physician counseling 15:17:19 PASSENGER [employer] SUPER[employer] CPT-51876 Pneumovax 23 15:17:19 PASSENGER [employer] SUPERVISOR CPT-73185 Pneumovax 14:52:45 PASSENGER [employer] SUPERVISOR CPT-57100 Venipuncture Draw Fee 14:06:30 PASSENGER [employer] SUPERVISOR CPT-000 Give Appropriate Flu Vaccine 14:18:34 P[employer]ENGER [employer] SUPERVISOR 2 CPT-11511 Administration single or combination vac cine inc oral 14:46:00 PASSENGER [employer]PER[employer] CPT-91557 Influenza split virus > age 3 14:46:00 P[employer]ENGER [employer] SUPERVISOR CPT-OV Office Visit 19:13:16 CDT CPT-09108 Zostavax 18:41:56 CDT CPT-24381 Administration single or combination vac cine inc oral 12:56:39 CDT CPT-05315 Zoster Vaccine (Zostavax) 12:56:39 CDT 2012 CPT-95587 Venipuncture Draw Fee 10:58:57 CDT CPT-59481 Sono pelvis non OB uterus ovaries cervix 17:45:04 CDT CPT-23593 Sono retroperitoneal complete kidneys an d bladder 17:14:36 CDT CPT-OV Office Visit 14:59:38 P[employer]ENGER [employer]PER[employer] CPT-J1070 Depo Testosterone 100 mg 14:50:13 CDT 03/05 CPT-67555 Abx/Therapy Injection 14:50:13 CDT CPT-80467 Administration single or combination vac cine inc oral 14:34:43 CDT CPT-48583 Influenza split virus > age 3 14:34:43 CDT CPT-J1070 Depo Testosterone 100 mg 17:37:13 CDT 01/11 CPT-23158 Abx/Therapy Injection 17:37:13 CDT CPT-05837 Venipuncture Draw Fee 16:30:13 CDT CPT-74424 Venipuncture Draw Fee 16:29:43 CDT CPT-J1070 Depo Testosterone 100 mg 14:45:38 CDT 01/11
--- OUTSIDE RECORDS SUMMARY | 2019-10-27 13:18 | XMS REPORT | Clinical Summary ---
Author Author Admin, Elba Lance Michellejigl [facility] Address Unknown Phone Unavailable Allergies, Adverse Reactions, Alerts Allergy Name Reaction Description Start Date Severity Status Pr ovider ASPIRIN Critical Active Baltazar bynum MD PENICILLIN yeast infection Critical Active Baltazar Childers MD FISH Critical Active aBltazar bynum MD CODEINE Critical Active Baltazar bynmu MD Conditions or Problems Problem Name Problem [...] libido COLON POLYPS 211.3 Resolved Lolis Thomas [employer] WORK[employer] Benign neoplasm of colon PERIPHERAL NEUROPATHY [...] 1 tablet daily for 4 days AZITHROMYCIN 77050293625 Active Baltazar Wayne Active LANTUS SOLOSTAR 100 UNIT/ML SC SOPN 30 units SC daily INSULIN GLARGINE 82837660358 Active Baltazar Childers MD Active AMLODIPINE BESYLATE 5 MG ORAL TABS 1 tab daily for HTN AMLODIPINE BESYLATE 41886995114 Active Baltazar Childers MD Active SYNTHROID 0.1 MG TAB 1 tablet by mouth daily LE VOTHYROXINE SODIUM 49087092465 Active Baltazar Childers MD Active GLIPIZIDE 10 MG TAB take 2 tablets twice daily GLIPIZIDE 11917427406 Active Baltazar Childers MD Active SUCRALFATE 1 GM TABS 1 four times a day to coat the stomach 2015 SUCRALFATE 89053395771 No Longer Active Baltazar Childers MD Active PEN NEEDLES 31G X 6 MM MISC use 1 daily INSULIN PEN NEEDLE 20508238454 Active Gato Rae MD Active TOUJEO SOLOSTAR 300 UNIT/ML SC SOPN 10 units SC daily INSULIN GLARGINE 55113967762 No Longer Active Martita ARGUETA Active NAPROXEN SODIUM 220 MG ORAL TABS 1 three times a day as needed 2 NAPROXEN SODIUM 82357334435 No Longer Active Baltazar Childers MD Active ATORVASTATIN CALCIUM 20 MG ORAL TABS Take 1 tab daily ATORVASTATIN CALCIUM 12691775269 Active Baltazar Childers MD Active FUROSEMIDE 40 MG TABS Take one by mouth daily FUROSEMIDE 52231051566 Active Baltazar Childers MD Active LISINOPRIL 20 MG TABS Take one by mouth daily at bedtime LISINOPRIL 60686265838 No Longer Active Baltazar Childers MD Active ONETOUCH ULTRA BLUE STRP Test twice a day GLUCO SE BLOOD 64211384038 No Longer Active Baltazar Childers MD Active TRUEPLUS LANCETS 33G MISC Test twice a day LANCET S 69414345515 Active KENDALL Juarez Active TRUEDRAW LANCING DEVICE MISC Test twice a day L ANCET DEVICES 78805206292 Active Baltazar Childers MD Active TRUETRACK TEST STRP Test twice a day GLUCOSE BLOO D 79367878188 Active KENDALL Juarez Active TRUETRACK BLOOD GLUCOSE W/DEVICE KIT Test twice a day BLOOD GLUCOSE MONITORING SUPPL 42853282710 Active Baltazar Childers MD Activ e HYDROCODONE-ACETAMINOPHEN 7.5-325 MG TABS Take 1 tab every 6-8 hour s PRN HYDROCODONE-ACETAMINOPHEN 29835696313 Active Baltazar Childers MD Active NORTRIPTYLINE HCL 50 MG CAPS 1 every night for neuropathy 4 NORTRIPTYLINE HCL 97107242151 Active Baltazar Childers MD Acti ve GABAPENTIN 300 MG CAPS 1 three times a day GABAPE NTIN 79522508613 Active Baltazar Childers MD Active GABAPENTIN 300 MG CAPS 1 po qd x 2 days, then 1 po BID x 2 d ays, then 1 po TID GABAPENTIN 80867193544 No Longer Active Baltazar silverman MD Active TRAMADOL HCL 50 MG TABS 1 twice a day as needed for pain TRAMADOL HCL 26983220226 Active Baltazar Childers MD Active NAPROXEN 500 MG TABS 1 tablet by mouth twice daily NAPROXEN 05456727992 No Longer Active Baltazar Childers MD Active PROAIR HFA 108 (90 BASE) MCG/ACT AERS 2 puffs four times a d ay as needed ALBUTEROL SULFATE 39342680516 Active Baltazar Childers MD Active DEPO-TESTOSTERONE 200 MG/ML OIL as directed RUFINO TOSTERONE CYPIONATE 20250008740 No Longer Active Baltzaar Childers MD Active LIPITOR 20 MG TABS Take one by mouth daily in evening ATORVASTATIN CALCIUM 66897382301 No Longer Active Baltazar Childers MD Activ e CRESTOR 10 MG TABS 1 by mouth every day R OSUVASTATIN CALCIUM 02758248668 No Longer Active Baltazar Childers MD Activ e PHENTERMINE HCL 37.5 MG TABS Take one by mouth daily 2 PHENTERMINE HCL 22175293581 No Longer Active Baltazar Childers MD Activ e ROBAXIN-750 750 MG TABS Take one by mouth daily ME THOCARBAMOL 23584577245 Active Baltazar Childers MD Active TIZANIDINE HCL 4 MG TABS 1 daily as needed for muscle spasm 2011 TIZANIDINE HCL 48051666648 No Longer Active Dawnatung Salazar RN Active [id number] 50-325-40 MG TABS 1 four time s a day as needed for heacache [id number] 06255679586 Active BethCÉSAR [place]el[place] Active SUMATRIPTAN SUCCINATE 100 MG TABS 1 tablet by mouth at onset of migraine as needed SUMATRIPTAN SUCCINATE 09203765659 Active Baltazar bynum MD Active LORATADINE 10 MG TABS Take one by mouth daily LORATADINE 41360628720 Active Baltazar Childers MD Active OMEPRAZOLE 20 MG CPDR Take one by mouth daily OMEPRAZOLE 20459485710 Active Baltazar Childers MD Active HYDROXYZINE HCL 25 MG TABS Take one by mouth daily HYDROXYZINE HCL 84677423725 Active Baltazar Childers MD Active ALPRAZOLAM 1 MG TABS 1 tablet by mouth daily at bedtime for restles s leg ALPRAZOLAM 11038457349 Active Baltazar Childers MD Active METFORMIN HCL 1000 MG TABS Take one by mouth twice daily METFORMIN HCL 91785501355 Active Baltazar Childers MD Active TIZANIDINE HCL 4 MG TABS 1 daily as needed for muscle spasm 2011 TIZANIDINE HCL 4 MG TABS 983263 TIZANIDINE HCL Inactiv e PHENTERMINE HCL 37.5 MG TABS Take one by mouth daily 2 PHENTERMINE HCL 37.5 MG TABS 429003 PHENTERMINE HCL Inactive CRESTOR 10 MG TABS 1 by mouth every day C RESTOR 10 MG TABS 606058 ROSUVASTATIN CALCIUM Inactive LIPITOR 20 MG TABS Take one by mouth daily in evening LIPITOR 20 MG TABS 683053 ATORVASTATIN CALCIUM Inactive DEPO-TESTOSTERONE 200 MG/ML OIL as directed 8 DEPO-TESTOSTERONE 200 MG/ML OIL 044016 TESTOSTERONE CYPIONATE Inactive NAPROXEN 500 MG TABS 1 tablet by mouth twice daily 201 07/27/22 NAPROXEN 500 MG TABS 940631 NAPROXEN Inactive GABAPENTIN 300 MG CAPS 1 po qd x 2 days, then 1 po BID x 2 d ays, then 1 po TID GABAPENTIN 300 MG CAPS 805956 GABAPENTIN Inact amie ONETOUCH ULTRA BLUE STRP Test twice a day ONETOUCH ULTRA BLUE STRP GLUCOSE BLOOD Inactive NAPROXEN SODIUM 220 MG ORAL TABS 1 three times a day as needed 2 NAPROXEN SODIUM 220 MG ORAL TABS 258752 NAPROXEN SODIUM Inactive TOUJEO SOLOSTAR 300 UNIT/ML SC SOPN 10 units SC daily TOUJEO SOLOSTAR 300 UNIT/ML SC SOPN INSULIN GLARGINE Inac tive SUCRALFATE 1 GM TABS 1 four times a day to coat the stomach 2015 SUCRALFATE 1 GM TABS 128553 SUCRALFATE Inactive Immunizations Vaccine Administration Date Value Standard Floyd cription pneumococcal immunization administered Pneumovax 23 [CVX33] pneumococcal polysaccharide vaccine, 23 valent Seasonal influenza vaccine, injectable, containing preservative, for > 3 years old (Afluria, FluLaval, Fluzone, Fluvirin, Fluarix, Agriflu(>= 18 yo)) Fluzone (>3 yrs.) [GNF669] Influenza, seasonal, inject able Seasonal influenza vaccine, injectable, containing preservative, for > 3 years old (Afluria, FluLaval, Fluzone, Fluvirin, Fluarix, Agriflu(>= 18 yo)) Fluzone (>3 yrs.) [[id number]] Influenza, seasonal, inject able Vital Signs Date [...] C - Chemistry sodium, serum 143 mmol/L 427-056 6101/06/19 potassium, serum 5.9 mmol/L 3.5-5.2 chloride, serum 105 mmol/L 98-107 carbon dioxide, venous blood 30.2 mmol/L 21.0-32 .0 blood glucose 189 mg/dL 65-110 calcium, serum 9.7 mg/dL 8.5-10.1 urea nitrogen, blood 37 mg/dL 7-18 creatinine, serum 2.11 mg/dL 0.55-1.30 hemoglobin A1C, blood, as % of total hemoglobin 8.2 % 4.3-6.0 Lab Report: CBC, Renal Panel - Chemistry sodium, serum 142 mmol/L 690-310 5809/08/11 potassium, serum 4.8 mmol/L 3.5-5.2 chloride, serum [...] Panel - Chemistry sodium, serum 143 mmol/L 968-592 9168/12/19 carbon dioxide, venous blood 32.5 mmol/L 21.0-32 .0 potassium, serum 4.9 mmol/L 3.5-5.2 chloride, serum 101 mmol/L 98-107 blood glucose 129 mg/dL 65-110 urea nitrogen, blood 18 mg/dL 7-18 creatinine, serum 1.79 mg/dL 0.55-1.30 alanine aminotransferase (SGPT), serum 34 U/L 12-78 aspartate aminotransferase (SGOT), serum 26 U/L 15-37 calcium, serum 8.9 mg/dL 8.5-10.1 bilirubin, serum, total 0.30 mg/dL 0.00-1.00 cholesterol, serum 214 mg/dL 928-070 1130/12/19 triglyceride, serum, fasting 351 mg/dL 30-200 HDL [...] 4.3-6.0 Encounters Code Encounter Date Provider Facility CPT-48415 Level 4 Est. Patient 12:25:11 CDT Baltazar Childers MD [facility] CPT-19220 Level 4 Est. Patient 14:22:31 CDT Baltazar Childers MD [facility] CPT-23003 Level 4 Est. Patient 15:44:38 CDT Shonna Parker APRN [facility] CPT-16428 Level 4 Est. Patient 11:34:17 CDT Baltazar Childers MD [facility] CPT-79937 Level 3 Est. Patient 16:40:40 CDT Baltazar Childers MD [facility] CPT-74620 Level 4 Est. Patient 10:41:24 CDT Baltazar Childers MD [facility] CPT-06977 Level 4 Est. Patient 16:01:48 CDT Baltazar Childers MD [facility] CPT-24855 Level 4 Est. 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 Patient 15:42:12 CDT Baltazar Childers MD [facility] CPT-90539 Level 4 Est. Patient 11:29:55 CDT Baltazar Childers MD [facility] CPT-43477 Level 4 Est. Patient 14:15:19 CDT Baltazar Childers MD [facility] CPT-79684 Level 4 Est. Patient 12:20:13 CDT Baltazar Childers MD [facility] CPT-29330 Level 4 Est. 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 Patient 14:18:34 ENVIRONMENTAL LAWYER Baltazar Childers MD [facility] CPT-80202 Level 4 Est. Patient 15:18:29 CDT Baltazar Childers MD [facility] CPT-59088 Level 3 Est. Patient 12:45:34 CDT Baltazar Childers MD [facility] CPT-24833 Level 3 Est. Patient 10:10:11 CDT Baltazar Childers MD [facility] CPT-58836 Level 3 Est. Patient 14:07:50 CDT Baltazar Childers MD [facility] CPT-99741 Level 4 Est. Patient 12:26:10 ENVIRONMENTAL LAWYER Baltazar Childers MD [facility] CPT-48101 Level 4 Est. Patient 14:45:38 CDT Baltazar Childers MD [facility] CPT-36091 Level 4 New Patient 12:30:48 CDT Baltazar hinton MD [facility] Procedures Code Procedure Name Date Entry Date Standard Desc ription CPT-51570 First Vx - Ix admin via ID I M or jet injects without counseling by physician 13:08:59 CDT CPT-04427 Fluzone Quadrivalent Intramuscular Suspe nsion 0.5 ML 13:08:59 CDT CPT-98938 Venipuncture Draw Fee 12:04:12 CDT CPT-27606 Lipid - LAB USE ONLY 17:39:15 ENVIRONMENTAL LAWYER 9 CPT-50576 HGBA1C - LAB USE ONLY 17:39:15 ENVIRONMENTAL LAWYER CPT-77342 CMP - LAB USE ONLY 17:39:14 ENVIRONMENTAL LAWYER CPT-47453 Venipuncture Draw Fee 17:39:14 ENVIRONMENTAL LAWYER CPT-55337 First Vx - Ix admin via ID I M or jet injects without counseling by physician 16:55:17 ENVIRONMENTAL LAWYER CPT-46331 Fluzone Quadrivalent Intramuscular Suspe nsion 0.5 ML 16:55:17 ENVIRONMENTAL LAWYER CPT-01758 Renal Panel - LAB USE ONLY 17:39:20 CDT 201 10/31/07 CPT-46543 CBC - LAB USE ONLY 17:39:20 CDT CPT-02647 Venipuncture Draw Fee 17:39:20 CDT CPT-29029 Venipuncture Draw Fee 14:33:30 CDT CPT-26393 Renal Panel - LAB USE ONLY 14:33:30 CDT 201 10/31/07 CPT-68654 CBC - LAB USE ONLY 14:33:29 CDT CPT-41285 Venipuncture Draw Fee 14:50:21 ENVIRONMENTAL LAWYER CPT-24187 Immunization Single Admin 17:35:35 CDT 2014 CPT-78029 Fluzone Quadrivalent preservative free ( >=3yrs.) 17:35:35 CDT CPT-58753 Venipuncture Draw Fee 12:10:27 ENVIRONMENTAL LAWYER CPT-08962 Fluzone Quadrivalent Intramuscular Suspe nsion 0.5 ML 10:49:13 CDT CPT-87373 First Vx Component - Ix admi n via ID IM or jet inj without physician counseling 15:17:19 ENVIRONMENTAL LAWYER CPT-04900 Pneumovax 23 15:17:19 ENVIRONMENTAL LAWYER CPT-53541 Pneumovax 14:52:45 ENVIRONMENTAL LAWYER CPT-85499 Venipuncture Draw Fee 14:06:30 ENVIRONMENTAL LAWYER CPT-000 Give Appropriate Flu Vaccine 14:18:34 ENVIRONMENTAL LAWYER 2 CPT-00264 Administration single or combination vac cine inc oral 14:46:00 ENVIRONMENTAL LAWYER CPT-83190 Influenza split virus > age 3 14:46:00 ENVIRONMENTAL LAWYER CPT-OV Office Visit 19:13:16 CDT CPT-86513 Zostavax 18:41:56 CDT CPT-86355 Administration single or combination vac cine inc oral 12:56:39 CDT CPT-35314 Zoster Vaccine (Zostavax) 12:56:39 CDT 2012 CPT-62751 Venipuncture Draw Fee 10:58:57 CDT CPT-63361 Sono pelvis non OB uterus ovaries cervix 17:45:04 CDT CPT-38513 Sono retroperitoneal complete kidneys an d bladder 17:14:36 CDT CPT-OV Office Visit 14:59:38 ENVIRONMENTAL LAWYER CPT-J1070 Depo Testosterone 100 mg 14:50:13 CDT 03/05 CPT-01456 Abx/Therapy Injection 14:50:13 CDT CPT-07170 Administration single or combination vac cine inc oral 14:34:43 CDT CPT-01981 Influenza split virus > age 3 14:34:43 CDT CPT-J1070 Depo Testosterone 100 mg 17:37:13 CDT 01/11 CPT-37144 Abx/Therapy Injection 17:37:13 CDT CPT-37049 Venipuncture Draw Fee 16:30:13 CDT CPT-13084 Venipuncture Draw Fee 16:29:43 CDT CPT-J1070 Depo Testosterone 100 mg 14:45:38 CDT 01/11
--- OUTSIDE RECORDS SUMMARY | 2019-10-27 13:18 | XMS REPORT | Clinical Summary ---
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 Benign neoplasm of colon PERIPHERAL NEUROPATHY 356.9 [...] unspecified type of vessel, [place] or graft OTH NONSPC ABN FINDNG RAD&OTH [...] controlled w/vascular complications 250 .70 Active Baltazar Childres MD Diabetes mellitus wi th peripheral circulatory [...] three times a day 201 12/03/26 GABAPENTIN 98012889162 No Longer Active Baltazar Childers MD Activ e LISINOPRIL 20 MG ORAL TABLET 1 tablet by mouth daily at night 2016 LISINOPRIL 97717282778 Active Baltazar Childers MD Active ZITHROMAX Z-ISAIAS 250 MG ORAL TABLET Take two tablets to day and then 1 tablet daily for 4 days AZITHROMYCIN 61003891190 No Longer A ctive Baltazar Childers MD Active LANTUS SOLOSTAR 100 UNIT/ML SUBCUTANEOUS SOLUTION PEN- INJECTOR 30 units SC daily INSULIN GLARGINE 28271264745 Active Baltazar Childers MD Active AMLODIPINE BESYLATE 5 MG ORAL TABLET 1 tab daily for HTN AMLODIPINE BESYLATE 26357138722 Active Baltazar Childers MD Active SYNTHROID 100 MCG ORAL TABLET 1 tablet by mouth daily LEVOTHYROXINE SODIUM 08562545593 Active Baltazar Childers MD Active GLIPIZIDE 10 MG ORAL TABLET take 2 tablets twice daily GLIPIZIDE 79763942765 Active Baltazar Childers MD Active SUCRALFATE 1 GM ORAL TABLET 1 four times a day to coat the stoma ch SUCRALFATE 70198407218 No Longer Active Baltazar Childers MD Active PEN NEEDLES 31G X 6 MM use 1 daily INSULIN PEN NE EDLE 59407242386 Active KENDALL Juarez Active CELINA POWERSOSTNAKITA 300 UNIT/ML SUBCUTANEOUS SOLUTION PEN- INJECTOR 10 units SC daily INSULIN GLARGINE 93659582488 No Longer Active Rola Godinez RMA Active NAPROXEN SODIUM 220 MG ORAL TABLET 1 three times a day as needed NAPROXEN SODIUM 39493393983 No Longer Active Baltazar Childers MD Active ATORVASTATIN CALCIUM 20 MG ORAL TABLET Take 1 tab daily ATORVASTATIN CALCIUM 38897987598 Active Baltazar Childers MD A ctive FUROSEMIDE 40 MG ORAL TABLET Take one by mouth daily FUROSEMIDE 95484488113 Active Jessy Arellano LPN Active LISINOPRIL 20 MG ORAL TABLET Take one by mouth daily at bedtime LISINOPRIL 62942743630 No Longer Active Baltazar Childers MD Active ONETOUCH ULTRA BLUE IN VITRO STRIP Test twice a day 07/11/11 GLUCOSE BLOOD 77787116863 No Longer Active Baltazar Childers MD Acti ve TRUEPLUS LANCETS 33G Test twice a day LANCETS 6628913 1002 Active KENDALL Juarez Active TRUEDRAW LANCING DEVICE Test twice a day LANCET DEVICES 88354611880 Active Baltazar Childers MD Active TRUETRACK TEST IN VITRO STRIP Test twice a day GLUCOSE BLOOD 25829461935 Active KENDALL Juarez Active TRUETRACK BLOOD GLUCOSE w/Device KIT Test twice a day BLOOD GLUCOSE MONITORING SUPPL 64230827413 Active Baltazar Childers MD Activ e HYDROCODONE-ACETAMINOPHEN 7.5-325 MG ORAL TABLET Take 1 tab every 6-8 hours PRN HYDROCODONE-ACETAMINOPHEN 15295461887 Active Baltazar Nickerson MD Active NORTRIPTYLINE HCL 50 MG ORAL CAPSULE 1 every night for neuropathy 2 NORTRIPTYLINE HCL 86359943121 Active Baltazar Childers MD Acti ve GABAPENTIN 300 MG ORAL CAPSULE 1 po qd x 2 days, then 1 po BID x 2 days, then 1 po TID GABAPENTIN 33045857873 No Longer Active Baltazar Childers MD Active TRAMADOL HCL 50 MG ORAL TABLET 1 twice a day as needed for pain 201 07/27/28 TRAMADOL HCL 53752853205 Active Baltazar Childers MD Active NAPROXEN 500 MG ORAL TABLET 1 tablet by mouth twice daily NAPROXEN 74343467540 No Longer Active Baltazar Childers MD Active PROAIR HFA 108 (90 Base) MCG/ACT INHALATION AEROSOL SO LUTION 2 puffs four times a day as needed ALBUTEROL SULFATE 63235551828 Active Paul Childers MD Active DEPO-TESTOSTERONE 200 MG/ML INTRAMUSCULAR SOLUTION as directed TESTOSTERONE CYPIONATE 62088569573 No Longer Active Baltazar Childers MD Active LIPITOR 20 MG ORAL TABLET Take one by mouth daily in evening ATORVASTATIN CALCIUM 57507976458 No Longer Active Baltazar Childers MD Active CRESTOR 10 MG ORAL TABLET 1 by mouth every day ROSUVASTATIN CALCIUM 96854313322 No Longer Active Baltazar Childers MD Active PHENTERMINE HCL 37.5 MG ORAL TABLET Take one by mouth daily PHENTERMINE HCL 73829996098 No Longer Active Baltazar Childers MD Ac tive ROBAXIN-750 750 MG ORAL TABLET Take one by mouth daily METHOCARBAMOL 52673377560 Active Baltazar Childers MD Active TIZANIDINE HCL 4 MG ORAL TABLET 1 daily as needed for muscle spa sm TIZANIDINE HCL 57182997433 No Longer Active Dawna Salazar RN Active [id number] 50-325-40 MG ORAL TABLET 1 fo ur times a day as needed for heacache [id number] 23136468705 Active Baltazar Childers MD Active SUMATRIPTAN SUCCINATE 100 MG ORAL TABLET 1 tablet by m outh at onset of migraine as needed SUMATRIPTAN SUCCINATE 57078722714 Active Bertha Vazquez LPN Active LORATADINE 10 MG ORAL TABLET Take one by mouth daily LORATADINE 39070980764 Active Baltazar Childers MD Active OMEPRAZOLE 20 MG ORAL CAPSULE DELAYED RELEASE Take one by mouth jostin ly OMEPRAZOLE 32025998171 Active Baltazar Childers MD Active HYDROXYZINE HCL 25 MG ORAL TABLET Take one by mouth daily HYDROXYZINE HCL 55272250781 Active Baltazar Childers MD Active ALPRAZOLAM 1 MG ORAL TABLET 1 [facility] ALPRAZOLAM 29524254897 Active Baltazar Childers MD Active METFORMIN HCL 1000 MG ORAL TABLET Take one by mouth twice daily METFORMIN HCL 39864823148 Active Baltazar Childers MD Active TIZANIDINE HCL 4 MG ORAL TABLET 1 daily as needed for muscle spa sm TIZANIDINE HCL 4 MG ORAL TABLET 691792 TIZANIDINE HCL Inactive PHENTERMINE HCL 37.5 MG ORAL TABLET Take one by mouth daily PHENTERMINE HCL 37.5 MG ORAL TABLET 408881 PHENTERMINE HCL Inac tive CRESTOR 10 MG ORAL TABLET 1 by mouth every day CRESTOR 10 MG ORAL TABLET 395778 ROSUVASTATIN CALCIUM Inactive LIPITOR 20 MG ORAL TABLET Take one by mouth daily in evening LIPITOR 20 MG ORAL TABLET 767424 ATORVASTATIN CALCIUM Inactive DEPO-TESTOSTERONE 200 MG/ML INTRAMUSCULAR SOLUTION as directed DEPO-TESTOSTERONE 200 MG/ML INTRAMUSCULAR SOLUTION 783391 RUFINO TOSTERONE CYPIONATE Inactive NAPROXEN 500 MG ORAL TABLET 1 tablet by mouth twice daily NAPROXEN 500 MG ORAL TABLET 560199 NAPROXEN Inactive GABAPENTIN 300 MG ORAL CAPSULE 1 po qd x 2 days, then 1 po BID x 2 days, then 1 po TID GABAPENTIN 300 MG ORAL CAPSULE 690992 GABAP ENTIN Inactive ONETOUCH ULTRA BLUE IN VITRO STRIP Test twice a day 07/11/11 ONETOUCH ULTRA BLUE IN VITRO STRIP GLUCOSE BLOOD Inact amie NAPROXEN SODIUM 220 MG ORAL TABLET 1 three times a day as needed NAPROXEN SODIUM 220 MG ORAL TABLET 125225 NAPROXEN SODI UM Inactive TOUJEO SOLOSTAR 300 UNIT/ML SUBCUTANEOUS SOLUTION PEN- INJECTOR 10 units SC daily TOUJEO SOLOSTAR 300 UNIT/ML SUBCUTANEOUS SOLUTION PEN-INJECTOR INSULIN GLARGINE Inactive SUCRALFATE 1 GM ORAL TABLET 1 four times a day to coat the stoma ch SUCRALFATE 1 GM ORAL TABLET 323133 SUCRALFATE Inac tive GABAPENTIN 300 MG ORAL CAPSULE 1 three times a day 201 12/03/26 GABAPENTIN 300 MG ORAL CAPSULE 848117 GABAPENTIN Inactive ZITHROMAX Z-ISAIAS 250 MG ORAL TABLET Take two tablets to day and then 1 tablet daily for 4 days ZITHROMAX Z-ISAIAS 250 MG ORAL TAB LET 807772 AZITHROMYCIN Inactive Immunizations Vaccine Administration Date Value Standard Floyd cription pneumococcal immunization administered Pneumovax 23 [CVX33] pneumococcal polysaccharide vaccine, 23 valent Seasonal influenza vaccine, injectable, containing preservative, for > 3 years old (Afluria, FluLaval, Fluzone, Fluvirin, Fluarix, Agriflu(>= 18 yo)) Fluzone (>3 yrs.) [[id number]] Influenza, seasonal, inject able Seasonal influenza vaccine, injectable, containing preservative, for > 3 years old (Afluria, FluLaval, Fluzone, Fluvirin, Fluarix, Agriflu(>= 18 yo)) Fluzone (>3 yrs.) [[id number]] Influenza, seasonal, inject able Vital Signs Date [...] - Chem istry sodium, serum 139 mmol/L 213-576 9345/10/03 potassium, serum 4.7 mmol/L 3.5-5.2 chloride, serum 98 mmol/L 98-107 carbon dioxide, venous blood 28.7 mmol/L 21.0-32 .0 blood glucose 218 mg/dL 65-110 calcium, serum 9.8 mg/dL 8.5-10.1 urea nitrogen, blood 19 mg/dL 7-18 creatinine, serum 1.68 mg/dL 0.60-1.30 Lab Report: Basic Metabolic Panel, HGBA1 C - Chemistry sodium, serum 143 mmol/L 011-739 4006/06/19 potassium, serum 5.9 mmol/L 3.5-5.2 chloride, serum 105 mmol/L 98-107 carbon dioxide, venous blood 30.2 mmol/L 21.0-32 .0 blood glucose 189 mg/dL 65-110 calcium, serum 9.7 mg/dL 8.5-10.1 urea nitrogen, blood 37 mg/dL 7-18 creatinine, serum 2.11 mg/dL 0.55-1.30 hemoglobin A1C, blood, as % of total hemoglobin 8.2 % 4.3-6.0 Lab Report: CBC, Renal Panel - Chemistry sodium, serum 142 mmol/L 576-561 2061/08/11 potassium, serum 4.8 mmol/L 3.5-5.2 chloride, serum [...] (L) - Chemistry cholesterol, serum 209 mg/dL 612-064 8247/12/27 triglyceride, serum, fasting 329 mg/dL 30-200 HDL cholesterol, serum 56 mg/dL 32-60 LDL cholesterol, serum 87 mg/dL 0-130 TSH 3.60 m[iU]/mL 0.36-3.74 Encounters Code Encounter Date Provider Facility CPT-64946 Level 4 Est. Patient 16:21:19 INTEGRATED CIRCUIT LAYOUT DESIGNER Baltazar Childers MD [facility] CPT-84187 Level 4 Est. Patient 12:25:11 CDT Baltazar Childers MD [facility]-72644 Level 4 Est. Patient 14:22:31 CDT Baltazar Childers MD [facility]-43521 Level 4 Est. Patient 15:44:38 CDT Shonnajean Parker APRN [facility]-67993 Level 4 Est. Patient 11:34:17 CDT Baltazar Childers MD [facility]-12699 Level 3 Est. Patient 16:40:40 CDT Baltazar Childers MD [facility]-01464 Level 4 Est. Patient 10:41:24 CDT Baltazar Childers MD [facility]-17647 Level 4 Est. Patient 16:01:48 CDT Baltazar Childers MD [facility]-77325 Level 4 Est. Patient 16:54:07 INTEGRATED CIRCUIT LAYOUT DESIGNER Baltazar Childers MD [facility]-56791 Level 4 Est. Patient 15:42:12 CDT Baltazar Childers MD [facility] CPT-22700 Level 4 Est. Patient 11:29:55 CDT Baltazar Childers MD [facility]-28276 Level 4 Est. Patient 14:15:19 CDT Baltazar Childers MD [facility]-41485 Level 4 Est. Patient 12:20:13 CDT Baltazar Childers MD [facility]-61466 Level 4 Est. Patient 14:52:45 INTEGRATED CIRCUIT LAYOUT DESIGNER Baltazar Childers MD [facility]-18020 Level 4 Est. Patient 14:18:34 INTEGRATED CIRCUIT LAYOUT DESIGNER Baltazar Childers MD [facility]-84737 Level 4 Est. Patient 15:18:29 CDT Baltazar Childers MD [facility]-19787 Level 3 Est. Patient 12:45:34 CDT Baltazar Childers MD [facility] CPT-25658 Level 3 Est. Patient 10:10:11 CDT Baltazar Childers MD [facility] CPT-85639 Level 3 Est. Patient 14:07:50 CDT Baltazar Childers MD [facility] CPT-70716 Level 4 Est. Patient 12:26:10 INTEGRATED CIRCUIT LAYOUT DESIGNER Baltazar Childers MD [facility] CPT-47582 Level 4 Est. Patient 14:45:38 CDT Baltazar Childers MD [facility] CPT-23490 Level 4 New Patient 12:30:48 CDT Baltazar hinton MD [facility] Procedures Code Procedure Name Date Entry Date Standard Desc ription CPT-54280 First Vx - Ix admin via ID I M or jet injects without counseling by physician 13:08:59 CDT CPT-05903 Fluzone Quadrivalent Intramuscular Suspe nsion 0.5 ML 13:08:59 CDT CPT-61855 Venipuncture Draw Fee 12:04:12 CDT CPT-51003 Lipid - LAB USE ONLY 17:39:15 INTEGRATED CIRCUIT LAYOUT DESIGNER 9 CPT-17061 HGBA1C - LAB USE ONLY 17:39:15 INTEGRATED CIRCUIT LAYOUT DESIGNER CPT-31631 CMP - LAB USE ONLY 17:39:14 INTEGRATED CIRCUIT LAYOUT DESIGNER CPT-11182 Venipuncture Draw Fee 17:39:14 INTEGRATED CIRCUIT LAYOUT DESIGNER CPT-02579 First Vx - Ix admin via ID I M or jet injects without counseling by physician 16:55:17 INTEGRATED CIRCUIT LAYOUT DESIGNER CPT-81578 Fluzone Quadrivalent Intramuscular Suspe nsion 0.5 ML 16:55:17 INTEGRATED CIRCUIT LAYOUT DESIGNER CPT-35866 Renal Panel - LAB USE ONLY 17:39:20 CDT 201 10/31/07 CPT-97548 CBC - LAB USE ONLY 17:39:20 CDT CPT-98443 Venipuncture Draw Fee 17:39:20 CDT CPT-47691 Venipuncture Draw Fee 14:33:30 CDT CPT-89022 Renal Panel - LAB USE ONLY 14:33:30 CDT 201 10/31/07 CPT-58916 CBC - LAB USE ONLY 14:33:29 CDT CPT-44708 Venipuncture Draw Fee 14:50:21 INTEGRATED CIRCUIT LAYOUT DESIGNER CPT-26427 Immunization Single Admin 17:35:35 CDT 2014 CPT-51478 Fluzone Quadrivalent preservative free ( >=3yrs.) 17:35:35 CDT CPT-85373 Venipuncture Draw Fee 12:10:27 INTEGRATED CIRCUIT LAYOUT DESIGNER CPT-01333 Fluzone Quadrivalent Intramuscular Suspe nsion 0.5 ML 10:49:13 CDT CPT-37751 First Vx Component - Ix admi n via ID IM or jet inj without physician counseling 15:17:19 INTEGRATED CIRCUIT LAYOUT DESIGNER CPT-55122 Pneumovax 23 15:17:19 INTEGRATED CIRCUIT LAYOUT DESIGNER CPT-49394 Pneumovax 14:52:45 INTEGRATED CIRCUIT LAYOUT DESIGNER CPT-26914 Venipuncture Draw Fee 14:06:30 INTEGRATED CIRCUIT LAYOUT DESIGNER CPT-000 Give Appropriate Flu Vaccine 14:18:34 INTEGRATED CIRCUIT LAYOUT DESIGNER 2 CPT-25426 Administration single or combination vac cine inc oral 14:46:00 INTEGRATED CIRCUIT LAYOUT DESIGNER CPT-68377 Influenza split virus > age 3 14:46:00 INTEGRATED CIRCUIT LAYOUT DESIGNER CPT-OV Office Visit 19:13:16 CDT CPT-69414 Zostavax 18:41:56 CDT CPT-36503 Administration single or combination vac cine inc oral 12:56:39 CDT CPT-56121 Zoster Vaccine (Zostavax) 12:56:39 CDT 2012 CPT-94287 Venipuncture Draw Fee 10:58:57 CDT CPT-04732 Sono pelvis non OB uterus ovaries cervix 17:45:04 CDT CPT-51913 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
--- OUTSIDE RECORDS SUMMARY | 2019-10-27 13:19 | XMS REPORT | Clinical Summary ---
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 Benign neoplasm of colon PERIPHERAL NEUROPATHY [...] y atherosclerosis of unspecified type of vessel, [place] or graft OTH NONSPC ABN FINDNG [...] MISC Test twice a day LANCET S 32024222293 Active Baltazar Childers MD Active TRUEDRAW LANCING DEVICE MISC Test twice a day L ANCET DEVICES 61557843841 Active Baltazar Childers MD Active TRUETRACK TEST STRP Test twice a day GLUCOSE BLOO D 36513512885 Active Baltazar Childers MD Active TRUETRACK BLOOD GLUCOSE W/DEVICE KIT Test twice a day BLOOD GLUCOSE MONITORING SUPPL 48254498532 Active Bella Suarez APRN Active HYDROCODONE-ACETAMINOPHEN 7.5-325 MG TABS Take 1 tab every 6-8 hour s PRN HYDROCODONE-ACETAMINOPHEN 54954881330 Active Baltazar Childers MD Active NORTRIPTYLINE HCL 50 MG CAPS 1 every night for neuropathy 4 NORTRIPTYLINE HCL 12658168289 Active Bella Suarez APRN Active GABAPENTIN 300 MG CAPS 1 three times a day GABAPE NTIN 19688922744 Active Baltazar Childers MD Active GABAPENTIN 300 MG CAPS 1 po qd x 2 days, then 1 po BID x 2 d ays, then 1 po TID GABAPENTIN 32927911979 No Longer Active Baltazar silverman MD Active TRAMADOL HCL 50 MG TABS 1 twice a day as needed for pain TRAMADOL HCL 58746320586 Active Baltazar Childers MD Active NAPROXEN 500 MG TABS 1 tablet by mouth twice daily NAPROXEN 03669095395 No Longer Active Baltazar Childers MD Active PROAIR HFA 108 (90 BASE) MCG/ACT AERS 2 puffs four times a d ay as needed ALBUTEROL SULFATE 71261604488 Active Baltazar Childers MD Active DEPO-TESTOSTERONE 200 MG/ML OIL as directed RUFINO TOSTERONE CYPIONATE 07878244670 No Longer Active Baltazar Childers MD Active LIPITOR 20 MG TABS Take one by mouth daily in evening ATORVASTATIN CALCIUM 84254046075 No Longer Active Baltazar Childers MD Activ e CRESTOR 10 MG TABS 1 by mouth every day R OSUVASTATIN CALCIUM 60508142407 No Longer Active Baltazar Childers MD Activ e PHENTERMINE HCL 37.5 MG TABS Take one by mouth daily 2 PHENTERMINE HCL 30389666645 No Longer Active Baltazar Childers MD Activ e ROBAXIN-750 750 MG TABS Take one by mouth daily ME THOCARBAMOL 24779830347 Active Baltazar Childers MD Active TIZANIDINE HCL 4 MG TABS 1 daily as needed for muscle spasm 2011 TIZANIDINE HCL 53450157862 No Longer Active Dawna Salazar RN Active doughUCH ULTRA BLUE STRP Test twice a day GLUCO SE BLOOD 38714063244 Active Baltazar Childers MD Active [id number]-[id number] 50-325-40 MG TABS 1 four time s a day as needed for heacache [id number]-[id number] 96703723605 Active Baltazar Childers MD Active SUMATRIPTAN SUCCINATE 100 MG TABS 1 tablet by mouth at onset of migraine as needed SUMATRIPTAN SUCCINATE 64718377247 Active Baltazar barron MD Active LORATADINE 10 MG TABS Take one by mouth daily LORATADINE 30984785833 Active Baltazar Childers MD Active FUROSEMIDE 40 MG TABS Take one by mouth daily FUROSEMIDE 96546634316 Active Baltazar Childers MD Active LISINOPRIL 20 MG TABS Take one by mouth daily at bedtime LISINOPRIL 49770891238 Active Bella Suarez APRN Active OMEPRAZOLE 20 MG CPDR Take one by mouth daily OMEPRAZOLE 25272642030 Active Baltazar Childers MD Active HYDROXYZINE HCL 25 MG TABS Take one by mouth daily HYDROXYZINE HCL 60062871307 Active Baltazar Childers MD Active GLIPIZIDE 10 MG TABS 1 tablet by mouth twice daily GLIPIZIDE 40216402644 Active Baltazar Childers MD Active ALPRAZOLAM 1 MG TABS 1 tablet by mouth daily at bedtime for restles s leg ALPRAZOLAM 51505196781 Active Baltazar Childers MD Active METFORMIN HCL 1000 MG TABS Take one by mouth twice daily METFORMIN HCL 31983429834 Active Bella Suarez APRN Active TIZANIDINE HCL 4 MG TABS 1 daily as needed for muscle spasm 2011 TIZANIDINE HCL 4 MG TABS 446945 TIZANIDINE HCL Inactiv e PHENTERMINE HCL 37.5 MG TABS Take one by mouth daily 2 PHENTERMINE HCL 37.5 MG TABS 104289 PHENTERMINE HCL Inactive CRESTOR 10 MG TABS 1 by mouth every day C RESTOR 10 MG TABS ROSUVASTATIN CALCIUM Inactive LIPITOR 20 MG TABS Take one by mouth daily in evening LIPITOR 20 MG TABS 914932 ATORVASTATIN CALCIUM Inactive DEPO-TESTOSTERONE 200 MG/ML OIL as directed 8 DEPO-TESTOSTERONE 200 MG/ML OIL 460159 TESTOSTERONE CYPIONATE Inactive NAPROXEN 500 MG TABS 1 tablet by mouth twice daily 201 07/27/22 NAPROXEN 500 MG TABS 216224 NAPROXEN Inactive GABAPENTIN 300 MG CAPS 1 po qd x 2 days, then 1 po BID x 2 d ays, then 1 po TID GABAPENTIN 300 MG CAPS 915712 GABAPENTIN Inact amie Immunizations Vaccine Administration Date Value Standard Floyd cription pneumococcal immunization administered Pneumovax 23 [CVX33] pneumococcal polysaccharide vaccine, 23 valent Seasonal influenza vaccine, injectable, containing preservative, for > 3 years old (Afluria, FluLaval, Fluzone, Fluvirin, Fluarix, Agriflu(>= 18 yo)) Fluzone (>3 yrs.) [[id number]] Influenza, seasonal, inject able Seasonal influenza vaccine, injectable, containing preservative, for > 3 years old (Afluria, FluLaval, Fluzone, Fluvirin, Fluarix, Agriflu(>= 18 yo)) Fluzone (>3 yrs.) [[id number]] Influenza, seasonal, inject able Vital Signs Date [...] Panel - Chemistry sodium, serum 139 mmol/L 909-817 8352/01/20 potassium, serum 5.3 mmol/L 3.5-5.2 chloride, serum [...] mg/g mg/g{creat} 0-29 cholesterol, serum 319 mg/dL 431-328 4992/08/21 triglyceride, serum, fasting 546 mg/dL 30-200 HDL cholesterol, serum 39 mg/dL 32-96 LDL cholesterol, serum 167.00 mg/dL 5.00-130.00 hemoglobin A1C, blood, as % of total hemoglobin 7.7 % 4.3-6.0 sodium, serum 138 mmol/L 695-066 9899/08/21 potassium, serum 4.3 mmol/L 3.5-5.2 chloride, serum [...] 0-19 Encounters Code Encounter Date Provider Facility CPT-14066 Level 4 Est. Patient 14:15:19 CDT Baltazar Childers MD [facility] CPT-74948 Level 4 Est. Patient 12:20:13 CDT Baltazar Childers MD [facility] CPT-63157 Level 4 Est. Patient 14:52:45 INTERVIEWING CLERK Baltazar Childers MD [facility] CPT-28132 Level 4 Est. Patient 14:18:34 INTERVIEWING CLERK Baltazar Childers MD [facility] CPT-14661 Level 4 Est. Patient 15:18:29 CDT Baltazar Childers MD [facility] CPT-01367 Level 3 Est. Patient 12:45:34 CDT Baltazar Childers MD [facility] CPT-35933 Level 3 Est. Patient 10:10:11 CDT Baltazar Childers MD [facility] CPT-74625 Level 3 Est. Patient 14:07:50 CDT Baltazar Childers MD [facility] CPT-42937 Level 4 Est. Patient 12:26:10 INTERVIEWING CLERK Baltazar Childers MD [facility] CPT-83313 Level 4 Est. Patient 14:45:38 CDT Baltazar Childers MD [facility] CPT-03005 Level 4 New Patient 12:30:48 CDT Baltazar hinton MD [facility] Procedures Code Procedure Name Date Entry Date Standard Desc ription CPT-75640 Venipuncture Draw Fee 12:10:27 INTERVIEWING CLERK CPT-27196 Fluzone Quadrivalent Intramuscular Suspe nsion 0.5 ML 10:49:13 CDT CPT-97889 First Vx Component - Ix admi n via ID IM or jet inj without physician counseling 15:17:19 INTERVIEWING CLERK CPT-82829 Pneumovax 23 15:17:19 INTERVIEWING CLERK CPT-54826 Pneumovax 14:52:45 INTERVIEWING CLERK CPT-30045 Venipuncture Draw Fee 14:06:30 INTERVIEWING CLERK CPT-000 Give Appropriate Flu Vaccine 14:18:34 INTERVIEWING CLERK 2 CPT-28416 Administration single or combination vac cine inc oral 14:46:00 INTERVIEWING CLERK CPT-56156 Influenza split virus > age 3 14:46:00 INTERVIEWING CLERK CPT-OV Office Visit 19:13:16 CDT CPT-83599 Zostavax 18:41:56 CDT CPT-87661 Administration single or combination vac cine inc oral 12:56:39 CDT CPT-70670 Zoster Vaccine (Zostavax) 12:56:39 CDT 2012 CPT-41535 Venipuncture Draw Fee 10:58:57 CDT CPT-04606 Sono pelvis non OB uterus ovaries cervix 17:45:04 CDT CPT-99332 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
--- OUTSIDE RECORDS SUMMARY | 2019-10-27 13:19 | XMS REPORT | Clinical Summary ---
Author Author Admin, Elba Lance MichelleJournallyMe 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 Benign neoplasm of colon PERIPHERAL NEUROPATHY 356.9 [...] of unspecified type of vessel, [place] or graft OTH NONSPC ABN FINDNG RAD&OTH [...] tablet by mouth daily LE VOTHYROXINE SODIUM 30957816817 Active Carina Tucker LPN Active GLIPIZIDE 10 MG TAB take 2 tablets twice daily GLIPIZIDE 34986984621 Active Carina Tucker LPN Active SUCRALFATE 1 GM TABS 1 four times a day to coat the stomach 2015 SUCRALFATE 83377412023 No Longer Active Baltazar Childers MD Active PEN NEEDLES 31G X 6 MM MISC use 1 daily INSULIN PEN NEEDLE 26209617224 Active Bella Suarez COLORIST Active TOURINKUO SOLOSTAR 300 UNIT/ML SC SOPN 10 units SC daily INSULIN GLARGINE 85488285506 No Longer Active Martita Godinez KENDALL Active LANTUS SOLOSTAR 100 UNIT/ML SC SOPN 10 units SC daily INSULIN GLARGINE 55541652324 Active Baltazar Childers MD Active NAPROXEN SODIUM 220 MG ORAL TABS 1 three times a day as needed 2 NAPROXEN SODIUM 74538470836 No Longer Active Baltazar Childers MD Active ATORVASTATIN CALCIUM 20 MG ORAL TABS Take 1 tab daily ATORVASTATIN CALCIUM 77391404397 Active Baltazar Childers MD Active FUROSEMIDE 40 MG TABS Take one by mouth daily FUROSEMIDE 30192465202 Active Baltazar Childers MD Active LISINOPRIL 20 MG TABS Take one by mouth daily at bedtime LISINOPRIL 78627455720 Active KENDALL Juarez Active ONETOUCH ULTRA BLUE STRP Test twice a day GLUCO SE BLOOD 50959983007 No Longer Active Baltazar Childers MD Active TRUEPLUS LANCETS 33G MISC Test twice a day LANCET S 64501571336 Active KENDALL Juarez Active TRUEDRAW LANCING DEVICE MISC Test twice a day L ANCET DEVICES 75082059348 Active Baltazar Childers MD Active TRUETRACK TEST STRP Test twice a day GLUCOSE BLOO D 27079224480 Active KENDALL Juarez Active TRUETRACK BLOOD GLUCOSE W/DEVICE KIT Test twice a day BLOOD GLUCOSE MONITORING SUPPL 99456444322 Active Baltazar Childers MD Activ e HYDROCODONE-ACETAMINOPHEN 7.5-325 MG TABS Take 1 tab every 6-8 hour s PRN HYDROCODONE-ACETAMINOPHEN 90673183764 Active Shonna Parker APRN Active NORTRIPTYLINE HCL 50 MG CAPS 1 every night for neuropathy 4 NORTRIPTYLINE HCL 89295081261 Active Baltazar Childers MD Acti ve GABAPENTIN 300 MG CAPS 1 three times a day GABAPE NTIN 51620173167 Active KENDALL Juarez Active GABAPENTIN 300 MG CAPS 1 po qd x 2 days, then 1 po BID x 2 d ays, then 1 po TID GABAPENTIN 27518316733 No Longer Active Baltazar silverman MD Active TRAMADOL HCL 50 MG TABS 1 twice a day as needed for pain TRAMADOL HCL 56578824928 Active Shonna Parker APRN Active NAPROXEN 500 MG TABS 1 tablet by mouth twice daily NAPROXEN 46111876591 No Longer Active Baltazar Childers MD Active PROAIR HFA 108 (90 BASE) MCG/ACT AERS 2 puffs four times a d ay as needed ALBUTEROL SULFATE 43231994005 Active KENDALL Juarez Active DEPO-TESTOSTERONE 200 MG/ML OIL as directed RUFINO TOSTERONE CYPIONATE 15933484439 No Longer Active Baltazar Childers MD Active LIPITOR 20 MG TABS Take one by mouth daily in evening ATORVASTATIN CALCIUM 18808327566 No Longer Active Baltazar Childers MD Activ e CRESTOR 10 MG TABS 1 by mouth every day R OSUVASTATIN CALCIUM 85184640823 No Longer Active Baltazar Childers MD Activ e PHENTERMINE HCL 37.5 MG TABS Take one by mouth daily 2 PHENTERMINE HCL 74330032447 No Longer Active Baltazar Childers MD Activ e ROBAXIN-750 750 MG TABS Take one by mouth daily ME THOCARBAMOL 14596854242 Active Baltazar Cihlders MD Active TIZANIDINE HCL 4 MG TABS 1 daily as needed for muscle spasm 2011 TIZANIDINE HCL 29427056765 No Longer Active Dawna Salazar RN Active [id number]-[id number] 50-325-40 MG TABS 1 four time s a day as needed for heacache [id number]-[id number]-[id number] 05454451516 Active Shonna Parker APRN Active SUMATRIPTAN SUCCINATE 100 MG TABS 1 tablet by mouth at onset of migraine as needed SUMATRIPTAN SUCCINATE 45881361408 Active Shonna Lucianodian er COLORIST Active LORATADINE 10 MG TABS Take one by mouth daily LORATADINE 22374487743 Active Baltazar Childers MD Active OMEPRAZOLE 20 MG CPDR Take one by mouth daily OMEPRAZOLE 10729698027 Active KENDALL Juarez Active HYDROXYZINE HCL 25 MG TABS Take one by mouth daily HYDROXYZINE HCL 87202170985 Active Baltazar Childers MD Active ALPRAZOLAM 1 MG TABS 1 tablet by mouth daily at bedtime for restles s leg ALPRAZOLAM 59236238737 Active Baltazar Childers MD Active METFORMIN HCL 1000 MG TABS Take one by mouth twice daily METFORMIN HCL 39484714125 Active Baltazar Childers MD Active TIZANIDINE HCL 4 MG TABS 1 daily as needed for muscle spasm 2011 TIZANIDINE HCL 4 MG TABS 091728 TIZANIDINE HCL Inactiv e PHENTERMINE HCL 37.5 MG TABS Take one by mouth daily 2 PHENTERMINE HCL 37.5 MG TABS 647513 PHENTERMINE HCL Inactive CRESTOR 10 MG TABS 1 by mouth every day C RESTOR 10 MG TABS 911340 ROSUVASTATIN CALCIUM Inactive LIPITOR 20 MG TABS Take one by mouth daily in evening LIPITOR 20 MG TABS 301482 ATORVASTATIN CALCIUM Inactive DEPO-TESTOSTERONE 200 MG/ML OIL as directed 8 DEPO-TESTOSTERONE 200 MG/ML OIL 938124 TESTOSTERONE CYPIONATE Inactive NAPROXEN 500 MG TABS 1 tablet by mouth twice daily 201 07/27/22 NAPROXEN 500 MG TABS 254848 NAPROXEN Inactive GABAPENTIN 300 MG CAPS 1 po qd x 2 days, then 1 po BID x 2 d ays, then 1 po TID GABAPENTIN 300 MG CAPS 393012 GABAPENTIN Inact amie ONETOUCH ULTRA BLUE STRP Test twice a day ONETOUCH ULTRA BLUE STRP GLUCOSE BLOOD Inactive NAPROXEN SODIUM 220 MG ORAL TABS 1 three times a day as needed 2 NAPROXEN SODIUM 220 MG ORAL TABS 339485 NAPROXEN SODIUM Inactive TOUJEO SOLOSTAR 300 UNIT/ML SC SOPN 10 units SC daily TOUJEO SOLOSTAR 300 UNIT/ML SC SOPN INSULIN GLARGINE Inac tive SUCRALFATE 1 GM TABS 1 four times a day to coat the stomach 2015 SUCRALFATE 1 GM TABS 641483 SUCRALFATE Inactive Immunizations Vaccine Administration Date Value Standard Floyd cription pneumococcal immunization administered Pneumovax 23 [CVX33] pneumococcal polysaccharide vaccine, 23 valent Seasonal influenza vaccine, injectable, containing preservative, for > 3 years old (Afluria, FluLaval, Fluzone, Fluvirin, Fluarix, Agriflu(>= 18 yo)) Fluzone (>3 yrs.) [MHB993] Influenza, seasonal, inject able Seasonal influenza vaccine, injectable, containing preservative, for > 3 years old (Afluria, FluLaval, Fluzone, Fluvirin, Fluarix, Agriflu(>= 18 yo)) Fluzone (>3 yrs.) [BYN057] Influenza, seasonal, inject able Vital Signs Date [...] Panel - Chemistry sodium, serum 143 mmol/L 830-082 6562/12/19 carbon dioxide, venous blood 32.5 mmol/L 21.0-32 .0 potassium, serum 4.9 mmol/L 3.5-5.2 chloride, serum 101 mmol/L 98-107 blood glucose 129 mg/dL 65-110 urea nitrogen, blood 18 mg/dL 7-18 creatinine, serum 1.79 mg/dL 0.55-1.30 alanine aminotransferase (SGPT), serum 34 U/L 12-78 aspartate aminotransferase (SGOT), serum 26 U/L 15-37 calcium, serum 8.9 mg/dL 8.5-10.1 bilirubin, serum, total 0.30 mg/dL 0.00-1.00 cholesterol, serum 214 mg/dL 660-253 1537/12/19 triglyceride, serum, fasting 351 mg/dL 30-200 HDL [...] 4.3-6.0 Lab Report: Renal Panel - Chemistry chloride, serum 101 mmol/L 98-107 carbon dioxide, venous blood 34.1 mmol/L 21.0-32 .0 creatinine, serum 1.98 mg/dL 0.55-1.30 blood glucose 193 mg/dL 65-110 potassium, serum 4.9 mmol/L 3.5-5.2 sodium, serum 141 mmol/L 911-722 1092/08/08 urea nitrogen, blood 30 mg/dL 7-18 calcium, serum 9.8 mg/dL 8.5-10.1 Encounters Code Encounter Date Provider Facility CPT-62975 Level 4 Est. Patient 15:44:38 CDT Shonna Parker APRN [facility] CPT-87391 Level 4 Est. Patient 11:34:17 CDT Baltazar Childers MD [facility] CPT-40679 Level 3 Est. Patient 16:40:40 CDT Baltazar Childers MD [facility] CPT-84990 Level 4 Est. Patient 10:41:24 CDT Baltazar Childers MD [facility] CPT-44144 Level 4 Est. Patient 16:01:48 CDT Baltazar Childers MD [facility] CPT-35494 Level 4 Est. Patient 16:54:07 TACTICAL DECEPTION PLANS OFFICER Baltazar Childers MD [facility] CPT-26280 Level 4 Est. Patient 15:42:12 CDT Baltazar Childers MD [facility] CPT-08338 Level 4 Est. Patient 11:29:55 CDT Baltazar Childers MD [facility] CPT-76388 Level 4 Est. Patient 14:15:19 CDT Baltazar Childers MD [facility] CPT-01035 Level 4 Est. Patient 12:20:13 CDT Baltazar Childers MD [facility] CPT-61722 Level 4 Est. Patient 14:52:45 TACTICAL DECEPTION PLANS OFFICER Baltazar Childers MD [facility] CPT-70754 Level 4 Est. Patient 14:18:34 TACTICAL DECEPTION PLANS OFFICER Baltazar Childers MD [facility] CPT-29927 Level 4 Est. Patient 15:18:29 CDT Baltazar Childers MD [facility] CPT-61959 Level 3 Est. Patient 12:45:34 CDT Baltazar Childers MD [facility] CPT-97819 Level 3 Est. Patient 10:10:11 CDT Baltazar Childers MD [facility] CPT-72311 Level 3 Est. Patient 14:07:50 CDT Baltazar Childers MD [facility] CPT-16176 Level 4 Est. Patient 12:26:10 TACTICAL DECEPTION PLANS OFFICER Baltazar Childers MD [facility] CPT-20082 Level 4 Est. Patient 14:45:38 CDT Baltazar Childers MD [facility] CPT-06430 Level 4 New Patient 12:30:48 CDT Baltazar hinton MD [facility] Procedures Code Procedure Name Date Entry Date Standard Desc ription CPT-12142 Lipid - LAB USE ONLY 17:39:15 TACTICAL DECEPTION PLANS OFFICER 9 CPT-68859 HGBA1C - LAB USE ONLY 17:39:15 TACTICAL DECEPTION PLANS OFFICER CPT-16289 CMP - LAB USE ONLY 17:39:14 TACTICAL DECEPTION PLANS OFFICER CPT-92473 Venipuncture Draw Fee 17:39:14 TACTICAL DECEPTION PLANS OFFICER CPT-85093 First Vx - Ix admin via ID I M or jet injects without counseling by physician 16:55:17 TACTICAL DECEPTION PLANS OFFICER CPT-11394 Fluzone Quadrivalent Intramuscular Suspe nsion 0.5 ML 16:55:17 TACTICAL DECEPTION PLANS OFFICER CPT-43936 Renal Panel - LAB USE ONLY 17:39:20 CDT 201 10/31/07 CPT-54395 CBC - LAB USE ONLY 17:39:20 CDT CPT-15836 Venipuncture Draw Fee 17:39:20 CDT CPT-12530 Venipuncture Draw Fee 14:33:30 CDT CPT-92216 Renal Panel - LAB USE ONLY 14:33:30 CDT 201 10/31/07 CPT-52225 CBC - LAB USE ONLY 14:33:29 CDT CPT-41474 Venipuncture Draw Fee 14:50:21 TACTICAL DECEPTION PLANS OFFICER CPT-07487 Immunization Single Admin 17:35:35 CDT 2014 CPT-81695 Fluzone Quadrivalent preservative free ( >=3yrs.) 17:35:35 CDT CPT-11483 Venipuncture Draw Fee 12:10:27 TACTICAL DECEPTION PLANS OFFICER CPT-99141 Fluzone Quadrivalent Intramuscular Suspe nsion 0.5 ML 10:49:13 CDT CPT-31070 First Vx Component - Ix admi n via ID IM or jet inj without physician counseling 15:17:19 TACTICAL DECEPTION PLANS OFFICER CPT-31171 Pneumovax 23 15:17:19 TACTICAL DECEPTION PLANS OFFICER CPT-08956 Pneumovax 14:52:45 TACTICAL DECEPTION PLANS OFFICER CPT-27042 Venipuncture Draw Fee 14:06:30 TACTICAL DECEPTION PLANS OFFICER CPT-000 Give Appropriate Flu Vaccine 14:18:34 TACTICAL DECEPTION PLANS OFFICER 2 CPT-36633 Administration single or combination vac cine inc oral 14:46:00 TACTICAL DECEPTION PLANS OFFICER CPT-23631 Influenza split virus > age 3 14:46:00 TACTICAL DECEPTION PLANS OFFICER CPT-OV Office Visit 19:13:16 CDT CPT-78980 Zostavax 18:41:56 CDT CPT-10517 Administration single or combination vac cine inc oral 12:56:39 CDT CPT-74752 Zoster Vaccine (Zostavax) 12:56:39 CDT 2012 CPT-59778 Venipuncture Draw Fee 10:58:57 CDT CPT-04275 Sono pelvis non OB uterus ovaries cervix 17:45:04 CDT CPT-14000 Sono retroperitoneal complete kidneys an d bladder 17:14:36 CDT CPT-OV Office Visit 14:59:38 TACTICAL DECEPTION PLANS OFFICER CPT-J1070 Depo Testosterone 100 mg 14:50:13 CDT 03/05 CPT-37388 Abx/Therapy Injection 14:50:13 CDT CPT-34073 Administration single or combination vac cine inc oral 14:34:43 CDT CPT-06877 Influenza split virus > age 3 14:34:43 CDT CPT-J1070 Depo Testosterone 100 mg 17:37:13 CDT 01/11 CPT-28224 Abx/Therapy Injection 17:37:13 CDT CPT-47867 Venipuncture Draw Fee 16:30:13 CDT CPT-21247 Venipuncture Draw Fee 16:29:43 CDT CPT-J1070 Depo Testosterone 100 mg 14:45:38 CDT 01/11
--- OUTSIDE RECORDS SUMMARY | 2019-10-27 13:19 | XMS REPORT | Clinical Summary ---
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 Benign neoplasm of colon PERIPHERAL NEUROPATHY 356.9 [...] day to coat the stomach 2015 SUCRALFATE 00798263454 No Longer Active Baltazar Childers MD Active PEN NEEDLES 31G X 6 MM MISC use 1 daily INSULIN PEN NEEDLE 55480128457 Active Bella Suarez AUTOMOBILE CLUB TRAVEL COUNSELOR Active TOUJEO SOLOSTAR 300 UNIT/ML SC SOPN 10 units SC daily INSULIN GLARGINE 22973316664 No Longer Active Martita Godinez RMA Active LANTUS SOLOSTAR 100 UNIT/ML SC SOPN 10 units SC daily INSULIN GLARGINE 93633219682 Active Baltazar Childers MD Active NAPROXEN SODIUM 220 MG ORAL TABS 1 three times a day as needed 2 NAPROXEN SODIUM 83393735442 No Longer Active Baltazar Childers MD Active ATORVASTATIN CALCIUM 20 MG ORAL TABS Take 1 tab daily ATORVASTATIN CALCIUM 08648937624 Active Baltazar Childers MD Active FUROSEMIDE 40 MG TABS Take one by mouth daily FUROSEMIDE 16503042541 Active Baltazar Childers MD Active LISINOPRIL 20 MG TABS Take one by mouth daily at bedtime LISINOPRIL 87831160148 Active Baltazar Childers MD Active ONETOUCH ULTRA BLUE STRP Test twice a day GLUCO SE BLOOD 57514474114 No Longer Active Baltazar Childers MD Active TRUEPLUS LANCETS 33G MISC Test twice a day LANCET S 11107381606 Active KENDALL Juarez Active TRUEDRAW LANCING DEVICE MISC Test twice a day L ANCET DEVICES 80061658137 Active Baltazar Childers MD Active TRUETRACK TEST STRP Test twice a day GLUCOSE BLOO D 34303680731 Active KENDALL Juarez Active TRUETRACK BLOOD GLUCOSE W/DEVICE KIT Test twice a day BLOOD GLUCOSE MONITORING SUPPL 95418436765 Active Baltazar Childers MD Activ e HYDROCODONE-ACETAMINOPHEN 7.5-325 MG TABS Take 1 tab every 6-8 hour s PRN HYDROCODONE-ACETAMINOPHEN 57253628551 Active Baltazar Childers MD Active NORTRIPTYLINE HCL 50 MG CAPS 1 every night for neuropathy 4 NORTRIPTYLINE HCL 76115978527 Active Baltazar Childers MD Acti ve GABAPENTIN 300 MG CAPS 1 three times a day GABAPE NTIN 44430256545 Active Baltazar Childers MD Active GABAPENTIN 300 MG CAPS 1 po qd x 2 days, then 1 po BID x 2 d ays, then 1 po TID GABAPENTIN 74446316293 No Longer Active Baltazar silverman MD Active TRAMADOL HCL 50 MG TABS 1 twice a day as needed for pain TRAMADOL HCL 94226849592 Active Baltazar Childers MD Active NAPROXEN 500 MG TABS 1 tablet by mouth twice daily NAPROXEN 26037295422 No Longer Active Baltazar Childers MD Active PROAIR HFA 108 (90 BASE) MCG/ACT AERS 2 puffs four times a d ay as needed ALBUTEROL SULFATE 85365280151 Active KENDALL Juarez Active DEPO-TESTOSTERONE 200 MG/ML OIL as directed RUFINO TOSTERONE CYPIONATE 29877398146 No Longer Active Baltazar Childers MD Active LIPITOR 20 MG TABS Take one by mouth daily in evening ATORVASTATIN CALCIUM 98556784037 No Longer Active Baltazar Childers MD Activ e CRESTOR 10 MG TABS 1 by mouth every day R OSUVASTATIN CALCIUM 99246459708 No Longer Active Baltazar Childers MD Activ e PHENTERMINE HCL 37.5 MG TABS Take one by mouth daily 2 PHENTERMINE HCL 05018166218 No Longer Active Baltazar Childers MD Activ e ROBAXIN-750 750 MG TABS Take one by mouth daily ME THOCARBAMOL 95059267744 Active Baltazar Childers MD Active TIZANIDINE HCL 4 MG TABS 1 daily as needed for muscle spasm 2011 TIZANIDINE HCL 75758069244 No Longer Active Dawna Salazar RN Active AALHIQJCJI-HDCB-FAKAIGNM 50-325-40 MG TABS 1 four time s a day as needed for heacache [id number]-[id number] 06861229479 Active Baltazar Childers MD Active SUMATRIPTAN SUCCINATE 100 MG TABS 1 tablet by mouth at onset of migraine as needed SUMATRIPTAN SUCCINATE 84044278307 Active Baltazar bynum MD Active LORATADINE 10 MG TABS Take one by mouth daily LORATADINE 97958431835 Active Baltazar Childers MD Active OMEPRAZOLE 20 MG CPDR Take one by mouth daily OMEPRAZOLE 21365922888 Active Baltazar Childers MD Active HYDROXYZINE HCL 25 MG TABS Take one by mouth daily HYDROXYZINE HCL 35560953273 Active Baltazar Childers MD Active GLIPIZIDE 10 MG TABS 1 tablet by mouth twice daily GLIPIZIDE 04743486952 Active Baltazar Childers MD Active ALPRAZOLAM 1 MG TABS 1 tablet by mouth daily at bedtime for restles s leg ALPRAZOLAM 37870613921 Active Baltazar Childers MD Active METFORMIN HCL 1000 MG TABS Take one by mouth twice daily METFORMIN HCL 92141055696 Active Baltazar Childers MD Active TIZANIDINE HCL 4 MG TABS 1 daily as needed for muscle spasm 2011 TIZANIDINE HCL 4 MG TABS 372225 TIZANIDINE HCL Inactiv e PHENTERMINE HCL 37.5 MG TABS Take one by mouth daily 2 PHENTERMINE HCL 37.5 MG TABS 262825 PHENTERMINE HCL Inactive CRESTOR 10 MG TABS 1 by mouth every day C RESTOR 10 MG TABS 577622 ROSUVASTATIN CALCIUM Inactive LIPITOR 20 MG TABS Take one by mouth daily in evening LIPITOR 20 MG TABS 141608 ATORVASTATIN CALCIUM Inactive DEPO-TESTOSTERONE 200 MG/ML OIL as directed 8 DEPO-TESTOSTERONE 200 MG/ML OIL 604912 TESTOSTERONE CYPIONATE Inactive NAPROXEN 500 MG TABS 1 tablet by mouth twice daily 201 07/27/22 NAPROXEN 500 MG TABS 388253 NAPROXEN Inactive GABAPENTIN 300 MG CAPS 1 po qd x 2 days, then 1 po BID x 2 d ays, then 1 po TID GABAPENTIN 300 MG CAPS 851350 GABAPENTIN Inact amie ONETOUCH ULTRA BLUE STRP Test twice a day ONETOUCH ULTRA BLUE STRP GLUCOSE BLOOD Inactive NAPROXEN SODIUM 220 MG ORAL TABS 1 three times a day as needed 2 NAPROXEN SODIUM 220 MG ORAL TABS 176507 NAPROXEN SODIUM Inactive TOUJEO SOLOSTAR 300 UNIT/ML SC SOPN 10 units SC daily TOUJEO SOLOSTAR 300 UNIT/ML SC SOPN INSULIN GLARGINE Inac tive SUCRALFATE 1 GM TABS 1 four times a day to coat the stomach 2015 SUCRALFATE 1 GM TABS 553671 SUCRALFATE Inactive Immunizations Vaccine Administration Date Value Standard Floyd cription pneumococcal immunization administered Pneumovax 23 [CVX33] pneumococcal polysaccharide vaccine, 23 valent Seasonal influenza vaccine, injectable, containing preservative, for > 3 years old (Afluria, FluLaval, Fluzone, Fluvirin, Fluarix, Agriflu(>= 18 yo)) Fluzone (>3 yrs.) [ZRX249] Influenza, seasonal, inject able Seasonal influenza vaccine, injectable, containing preservative, for > 3 years old (Afluria, FluLaval, Fluzone, Fluvirin, Fluarix, Agriflu(>= 18 yo)) Fluzone (>3 yrs.) [ITK059] Influenza, seasonal, inject able Vital Signs Date [...] C - Chemistry sodium, serum 139 mmol/L 733-434 7552/07/07 potassium, serum 4.5 mmol/L 3.5-5.2 chloride, serum [...] 7.9 % 4.3-6.0 sodium, serum 139 mmol/L 443-103 0157/02/04 potassium, serum 5.4 mmol/L 3.5-5.2 chloride, serum [...] Panel - Chemistry sodium, serum 141 mmol/L 240-206 2184/08/08 potassium, serum 4.9 mmol/L 3.5-5.2 chloride, serum [...] mg/dL Encounters Code Encounter Date Provider Facility CPT-30743 Level 4 Est. Patient 11:34:17 CDT Baltazar Childers MD [facility] CPT-60787 Level 3 Est. Patient 16:40:40 CDT Baltazar Childers MD [facility]-23980 Level 4 Est. Patient 10:41:24 CDT Baltazar Childers MD [facility]-55792 Level 4 Est. Patient 16:01:48 CDT Baltazar Childers MD [facility]-62530 Level 4 Est. Patient 16:54:07 CAR SALESPERSON Baltazar Childers MD [facility]-69535 Level 4 Est. Patient 15:42:12 CDT Baltazar Childers MD [facility] CPT-98484 Level 4 Est. Patient 11:29:55 CDT Baltazar Childers MD [facility]-63378 Level 4 Est. Patient 14:15:19 CDT Baltazar Childers MD [facility]-05181 Level 4 Est. Patient 12:20:13 CDT Baltazar Childers MD [facility]-66357 Level 4 Est. Patient 14:52:45 CAR SALESPERSON Baltazar Childers MD [facility] CPT-32043 Level 4 Est. Patient 14:18:34 CAR SALESPERSON Baltazar Childers MD [facility]-48529 Level 4 Est. Patient 15:18:29 CDT Baltazar Childers MD [facility]-51459 Level 3 Est. Patient 12:45:34 CDT Baltazar Childers MD [facility] CPT-77404 Level 3 Est. Patient 10:10:11 CDT Baltazar Childers MD [facility] CPT-07923 Level 3 Est. Patient 14:07:50 CDT Baltazar Childers MD [facility]-01035 Level 4 Est. Patient 12:26:10 CAR SALESPERSON Baltazar Childers MD [facility]-47592 Level 4 Est. Patient 14:45:38 CDT Baltazar Childers MD [facility] CPT-58802 Level 4 New Patient 12:30:48 CDT Baltazar hinton MD [facility] Procedures Code Procedure Name Date Entry Date Standard Desc ription CPT-43241 Lipid - LAB USE ONLY 17:39:15 CAR SALESPERSON 9 CPT-60265 HGBA1C - LAB USE ONLY 17:39:15 CAR SALESPERSON CPT-95691 CMP - LAB USE ONLY 17:39:14 CAR SALESPERSON CPT-82211 Venipuncture Draw Fee 17:39:14 CAR SALESPERSON CPT-17719 First Vx - Ix admin via ID I M or jet injects without counseling by physician 16:55:17 CAR SALESPERSON CPT-57817 Fluzone Quadrivalent Intramuscular Suspe nsion 0.5 ML 16:55:17 CAR SALESPERSON CPT-54277 Renal Panel - LAB USE ONLY 17:39:20 CDT 201 10/31/07 CPT-21399 CBC - LAB USE ONLY 17:39:20 CDT CPT-60888 Venipuncture Draw Fee 17:39:20 CDT CPT-56381 Venipuncture Draw Fee 14:33:30 CDT CPT-03920 Renal Panel - LAB USE ONLY 14:33:30 CDT 201 10/31/07 CPT-91551 CBC - LAB USE ONLY 14:33:29 CDT CPT-27553 Venipuncture Draw Fee 14:50:21 CAR SALESPERSON CPT-13347 Immunization Single Admin 17:35:35 CDT 2014 CPT-10262 Fluzone Quadrivalent preservative free ( >=3yrs.) 17:35:35 CDT CPT-75291 Venipuncture Draw Fee 12:10:27 CAR SALESPERSON CPT-74813 Fluzone Quadrivalent Intramuscular Suspe nsion 0.5 ML 10:49:13 CDT CPT-60736 First Vx Component - Ix admi n via ID IM or jet inj without physician counseling 15:17:19 CAR SALESPERSON CPT-69206 Pneumovax 23 15:17:19 CAR SALESPERSON CPT-36897 Pneumovax 14:52:45 CAR SALESPERSON CPT-08196 Venipuncture Draw Fee 14:06:30 CAR SALESPERSON CPT-000 Give Appropriate Flu Vaccine 14:18:34 CAR SALESPERSON 2 CPT-86591 Administration single or combination vac cine inc oral 14:46:00 CAR SALESPERSON CPT-10263 Influenza split virus > age 3 14:46:00 CAR SALESPERSON CPT-OV Office Visit 19:13:16 CDT CPT-80484 Zostavax 18:41:56 CDT CPT-28260 Administration single or combination vac cine inc oral 12:56:39 CDT CPT-51144 Zoster Vaccine (Zostavax) 12:56:39 CDT 2012 CPT-24507 Venipuncture Draw Fee 10:58:57 CDT CPT-37818 Sono pelvis non OB uterus ovaries cervix 17:45:04 CDT CPT-68381 Sono retroperitoneal complete kidneys an d bladder 17:14:36 CDT CPT-OV Office Visit 14:59:38 CAR SALESPERSON CPT-J1070 Depo Testosterone 100 mg 14:50:13 CDT 03/05 CPT-45722 Abx/Therapy Injection 14:50:13 CDT CPT-91616 Administration single or combination vac cine inc oral 14:34:43 CDT CPT-32674 Influenza split virus > age 3 14:34:43 CDT CPT-J1070 Depo Testosterone 100 mg 17:37:13 CDT 01/11 CPT-12351 Abx/Therapy Injection 17:37:13 CDT CPT-87172 Venipuncture Draw Fee 16:30:13 CDT CPT-84681 Venipuncture Draw Fee 16:29:43 CDT CPT-J1070 Depo Testosterone 100 mg 14:45:38 CDT 01/11
--- OUTSIDE RECORDS SUMMARY | 2019-10-27 13:20 | XMS REPORT | Clinical Summary ---
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 Benign neoplasm of colon PERIPHERAL NEUROPATHY [...] a day as needed 2 NAPROXEN SODIUM 04529581565 No Longer Active Baltazar Childers MD Active ATORVASTATIN CALCIUM 20 MG ORAL TABS Take 1 tab daily ATORVASTATIN CALCIUM 86378059650 Active KENDALL Juarez Active FUROSEMIDE 40 MG TABS Take one by mouth daily FUROSEMIDE 56601725164 Active Balatzar Childers MD Active LISINOPRIL 20 MG TABS Take one by mouth daily at bedtime LISINOPRIL 95713080865 Active KENDALL Juarez Active ONETOUCH ULTRA BLUE STRP Test twice a day GLUCO SE BLOOD 20216248341 No Longer Active Baltazar Childers MD Active TRUEPLUS LANCETS 33G MISC Test twice a day LANCET S 27051781242 Active KENDALL Juarez Active TRUEDRAW LANCING DEVICE MISC Test twice a day L ANCET DEVICES 02160032041 Active Baltazar Childers MD Active TRUETRACK TEST STRP Test twice a day GLUCOSE BLOO D 16697887706 Active KENDALL Juarez Active TRUETRACK BLOOD GLUCOSE W/DEVICE KIT Test twice a day BLOOD GLUCOSE MONITORING SUPPL 36588280015 Active Baltazar Childers MD Activ e HYDROCODONE-ACETAMINOPHEN 7.5-325 MG TABS Take 1 tab every 6-8 hour s PRN HYDROCODONE-ACETAMINOPHEN 56130673055 Active Baltazar Childers MD Active NORTRIPTYLINE HCL 50 MG CAPS 1 every night for neuropathy 4 NORTRIPTYLINE HCL 72659330291 Active Baltazar Childers MD Acti ve GABAPENTIN 300 MG CAPS 1 three times a day GABAPE NTIN 96261530260 Active KENDALL Juarez Active GABAPENTIN 300 MG CAPS 1 po qd x 2 days, then 1 po BID x 2 d ays, then 1 po TID GABAPENTIN 68704437738 No Longer Active Baltazar silverman MD Active TRAMADOL HCL 50 MG TABS 1 twice a day as needed for pain TRAMADOL HCL 14031814130 Active Baltazar Childers MD Active NAPROXEN 500 MG TABS 1 tablet by mouth twice daily NAPROXEN 95514521477 No Longer Active Baltazar Childers MD Active PROAIR HFA 108 (90 BASE) MCG/ACT AERS 2 puffs four times a d ay as needed ALBUTEROL SULFATE 12370252830 Active KENDALL Juarez Active DEPO-TESTOSTERONE 200 MG/ML OIL as directed RUFINO TOSTERONE CYPIONATE 66298099416 No Longer Active Baltazar Childers MD Active LIPITOR 20 MG TABS Take one by mouth daily in evening ATORVASTATIN CALCIUM 13565748649 No Longer Active Baltazar Childers MD Activ e CRESTOR 10 MG TABS 1 by mouth every day R OSUVASTATIN CALCIUM 22343032689 No Longer Active Baltazar Childers MD Activ e PHENTERMINE HCL 37.5 MG TABS Take one by mouth daily 2 PHENTERMINE HCL 49289616591 No Longer Active Baltazar Childers MD Activ e ROBAXIN-750 750 MG TABS Take one by mouth daily ME THOCARBAMOL 56318478157 Active Baltazar Childers MD Active TIZANIDINE HCL 4 MG TABS 1 daily as needed for muscle spasm 2011 TIZANIDINE HCL 64522267523 No Longer Active Dawna Salazar RN Active [id number]-MNIJ-DHTHTTGI 50-325-40 MG TABS 1 four time s a day as needed for heacache [id number] 58922043554 Active KENDALL Juarez Active SUMATRIPTAN SUCCINATE 100 MG TABS 1 tablet by mouth at onset of migraine as needed SUMATRIPTAN SUCCINATE 12888802437 Active KENDALL Juarez Active LORATADINE 10 MG TABS Take one by mouth daily LORATADINE 33193090009 Active Baltazar Childers MD Active OMEPRAZOLE 20 MG CPDR Take one by mouth daily OMEPRAZOLE 91899120139 Active [place] Lyons Active HYDROXYZINE HCL 25 MG TABS Take one by mouth daily HYDROXYZINE HCL 08137818904 Active Baltazar Childers MD Active GLIPIZIDE 10 MG TABS 1 tablet by mouth twice daily GLIPIZIDE 84255595389 Active KENDALL Juarez Active ALPRAZOLAM 1 MG TABS 1 tablet by mouth daily at bedtime for restles s leg ALPRAZOLAM 80301335337 Active Baltazar Childers MD Active METFORMIN HCL 1000 MG TABS Take one by mouth twice daily METFORMIN HCL 38309899498 Active Baltazar Childers MD Active TIZANIDINE HCL 4 MG TABS 1 daily as needed for muscle spasm 2011 TIZANIDINE HCL 4 MG TABS 207215 TIZANIDINE HCL Inactiv e PHENTERMINE HCL 37.5 MG TABS Take one by mouth daily 2 PHENTERMINE HCL 37.5 MG TABS 748352 PHENTERMINE HCL Inactive CRESTOR 10 MG TABS 1 by mouth every day C RESTOR 10 MG TABS ROSUVASTATIN CALCIUM Inactive LIPITOR 20 MG TABS Take one by mouth daily in evening LIPITOR 20 MG TABS 709130 ATORVASTATIN CALCIUM Inactive DEPO-TESTOSTERONE 200 MG/ML OIL as directed 8 DEPO-TESTOSTERONE 200 MG/ML OIL 427563 TESTOSTERONE CYPIONATE Inactive NAPROXEN 500 MG TABS 1 tablet by mouth twice daily 201 07/27/22 NAPROXEN 500 MG TABS 518662 NAPROXEN Inactive GABAPENTIN 300 MG CAPS 1 po qd x 2 days, then 1 po BID x 2 d ays, then 1 po TID GABAPENTIN 300 MG CAPS 034987 GABAPENTIN Inact amie ONETOUCH ULTRA BLUE STRP Test twice a day ONETOUCH ULTRA BLUE STRP GLUCOSE BLOOD Inactive NAPROXEN SODIUM 220 MG ORAL TABS 1 three times a day as needed 2 NAPROXEN SODIUM 220 MG ORAL TABS 326709 NAPROXEN SODIUM Inactive Immunizations Vaccine Administration Date Value Standard Floyd cription pneumococcal immunization administered Pneumovax 23 [CVX33] pneumococcal polysaccharide vaccine, 23 valent Seasonal influenza vaccine, injectable, containing preservative, for > 3 years old (Afluria, FluLaval, Fluzone, Fluvirin, Fluarix, Agriflu(>= 18 yo)) Fluzone (>3 yrs.) [[id number]] Influenza, seasonal, inject able Seasonal influenza vaccine, injectable, containing preservative, for > 3 years old (Afluria, FluLaval, Fluzone, Fluvirin, Fluarix, Agriflu(>= 18 yo)) Fluzone (>3 yrs.) [[id number]] Influenza, seasonal, inject able Vital Signs Date [...] 7.9 % 4.3-6.0 sodium, serum 139 mmol/L 974-252 0495/02/04 potassium, serum 5.4 mmol/L 3.5-5.2 chloride, serum [...] Panel - Chemistry sodium, serum 138 mmol/L 687-192 0340/11/23 carbon dioxide, venous blood 32.4 mmol/L 21.0-32 .0 potassium, serum 5.7 mmol/L 3.5-5.2 chloride, serum 98 mmol/L 98-107 blood glucose 136 mg/dL 65-110 urea nitrogen, blood 18 mg/dL 7-18 creatinine, serum 1.71 mg/dL 0.55-1.30 alanine aminotransferase (SGPT), serum 71 U/L 12-78 aspartate aminotransferase (SGOT), serum 34 U/L 15-37 calcium, serum 9.4 mg/dL 8.5-10.1 bilirubin, serum, total 0.40 mg/dL 0.00-1.00 cholesterol, serum 405 mg/dL 711-095 7436/11/23 triglyceride, serum, fasting 709 mg/dL 30-200 HDL [...] mg/dL Encounters Code Encounter Date Provider Facility CPT-82448 Level 4 Est. Patient 16:01:48 CDT Baltazar Childers MD [facility] CPT-42899 Level 4 Est. Patient 16:54:07 TECHNICAL SUPPORT REPRESENTATIVE Baltazar Childers MD [facility] CPT-71997 Level 4 Est. Patient 15:42:12 CDT Baltazar Childers MD [facility] CPT-32467 Level 4 Est. Patient 11:29:55 CDT Baltazar Childers MD [facility] CPT-64829 Level 4 Est. Patient 14:15:19 CDT Baltazar Childers MD [facility] CPT-18923 Level 4 Est. Patient 12:20:13 CDT Baltazar Childers MD [facility] CPT-83278 Level 4 Est. Patient 14:52:45 TECHNICAL SUPPORT REPRESENTATIVE Baltazar Childers MD [facility] CPT-22536 Level 4 Est. Patient 14:18:34 TECHNICAL SUPPORT REPRESENTATIVE Baltazar Childers MD [facility] CPT-90538 Level 4 Est. Patient 15:18:29 CDT Baltazar Childers MD [facility] CPT-68249 Level 3 Est. Patient 12:45:34 CDT Baltazar Childers MD [facility] CPT-89492 Level 3 Est. Patient 10:10:11 CDT Baltazar Childers MD [facility] CPT-51823 Level 3 Est. Patient 14:07:50 CDT Baltazar Childers MD [facility] CPT-41918 Level 4 Est. Patient 12:26:10 TECHNICAL SUPPORT REPRESENTATIVE Baltazar Childers MD [facility] CPT-28643 Level 4 Est. Patient 14:45:38 CDT Baltazar Childers MD [facility] CPT-07612 Level 4 New Patient 12:30:48 CDT Baltazar hinton MD [facility] Procedures Code Procedure Name Date Entry Date Standard Desc ription CPT-69009 Venipuncture Draw Fee 14:50:21 TECHNICAL SUPPORT REPRESENTATIVE CPT-26319 Immunization Single Admin 17:35:35 CDT 2014 CPT-90853 Fluzone Quadrivalent preservative free ( >=3yrs.) 17:35:35 CDT CPT-12825 Venipuncture Draw Fee 12:10:27 TECHNICAL SUPPORT REPRESENTATIVE CPT-50644 Fluzone Quadrivalent Intramuscular Suspe nsion 0.5 ML 10:49:13 CDT CPT-91340 First Vx Component - Ix admi n via ID IM or jet inj without physician counseling 15:17:19 TECHNICAL SUPPORT REPRESENTATIVE CPT-60286 Pneumovax 15:17:19 TECHNICAL SUPPORT REPRESENTATIVE CPT-98688 Pneumovax 14:52:45 TECHNICAL SUPPORT REPRESENTATIVE CPT-73750 Venipuncture Draw Fee 14:06:30 TECHNICAL SUPPORT REPRESENTATIVE CPT-000 Give Appropriate Flu Vaccine 14:18:34 TECHNICAL SUPPORT REPRESENTATIVE 2 CPT-20349 Administration single or combination vac cine inc oral 14:46:00 TECHNICAL SUPPORT REPRESENTATIVE CPT-82857 Influenza split virus > age 3 14:46:00 TECHNICAL SUPPORT REPRESENTATIVE CPT-OV Office Visit 19:13:16 CDT CPT-53665 Zostavax 18:41:56 CDT CPT-31200 Administration single or combination vac cine inc oral 12:56:39 CDT CPT-95950 Zoster Vaccine (Zostavax) 12:56:39 CDT 2012 CPT-93960 Venipuncture Draw Fee 10:58:57 CDT CPT-01746 Sono pelvis non OB uterus ovaries cervix 17:45:04 CDT CPT-79981 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
--- OUTSIDE RECORDS SUMMARY | 2019-10-27 13:20 | XMS REPORT | Clinical Summary ---
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 Benign neoplasm of colon PERIPHERAL NEUROPATHY [...] ronary atherosclerosis of unspecified type of vessel, kake or graft OTH NONSPC ABN FINDNG RAD&OTH [...] MD Heartburn COLON POLYPS ICD-211.3 Inactive Lolis Thomsa APR N Medication List Medication Instructions Start Date Stop Date Generic Name NDC Status Provider Patient Instruction SUCRALFATE 1 GM TABS 1 four times a day to coat the stomach 2015 SUCRALFATE 72118631616 No Longer Active Baltazar Childers MD Active PEN NEEDLES 31G X 6 MM MISC use 1 daily INSULIN PEN NEEDLE 62892553213 Active Bella Suarez SYSTEMS ANALYST DEVELOPER Active TOUJEO SOLOSTAR 300 UNIT/ML SC SOPN 10 units SC daily INSULIN GLARGINE 57855579285 No Longer Active Martita Godinez RMA Active LANTUS SOLOSTAR 100 UNIT/ML SC SOPN 10 units SC daily INSULIN GLARGINE 20684463417 Active Baltazar Childers MD Active NAPROXEN SODIUM 220 MG ORAL TABS 1 three times a day as needed 2 NAPROXEN SODIUM 29312235362 No Longer Active Baltazar Childers MD Active ATORVASTATIN CALCIUM 20 MG ORAL TABS Take 1 tab daily ATORVASTATIN CALCIUM 71636477890 Active Baltazar Childers MD Active FUROSEMIDE 40 MG TABS Take one by mouth daily FUROSEMIDE 69662097723 Active Baltazar Childers MD Active LISINOPRIL 20 MG TABS Take one by mouth daily at bedtime LISINOPRIL 78210238728 Active Baltazar Childers MD Active ONETOUCH ULTRA BLUE STRP Test twice a day GLUCO SE BLOOD 93054108393 No Longer Active Baltazar Childers MD Active TRUEPLUS LANCETS 33G MISC Test twice a day LANCET S 06257367893 Active KENDALL Juarez Active TRUEDRAW LANCING DEVICE MISC Test twice a day L ANCET DEVICES 24790542698 Active Baltazar Childers MD Active TRUETRACK TEST STRP Test twice a day GLUCOSE BLOO D 79759245749 Active KENDALL Juarez Active TRUETRACK BLOOD GLUCOSE W/DEVICE KIT Test twice a day BLOOD GLUCOSE MONITORING SUPPL 84009873558 Active Baltazar Childers MD Activ e HYDROCODONE-ACETAMINOPHEN 7.5-325 MG TABS Take 1 tab every 6-8 hour s PRN HYDROCODONE-ACETAMINOPHEN 89900122898 Active Baltazar Childers MD Active NORTRIPTYLINE HCL 50 MG CAPS 1 every night for neuropathy 4 NORTRIPTYLINE HCL 50594272103 Active Baltazar Childers MD Acti ve GABAPENTIN 300 MG CAPS 1 three times a day GABAPE NTIN 59883919166 Active Baltazar Childers MD Active GABAPENTIN 300 MG CAPS 1 po qd x 2 days, then 1 po BID x 2 d ays, then 1 po TID GABAPENTIN 38060506742 No Longer Active Baltazar silverman MD Active TRAMADOL HCL 50 MG TABS 1 twice a day as needed for pain TRAMADOL HCL 36805250283 Active Baltazar Childers MD Active NAPROXEN 500 MG TABS 1 tablet by mouth twice daily NAPROXEN 37542259031 No Longer Active Baltazar Childers MD Active PROAIR HFA 108 (90 BASE) MCG/ACT AERS 2 puffs four times a d ay as needed ALBUTEROL SULFATE 84783033630 Active KENDALL Juarez Active DEPO-TESTOSTERONE 200 MG/ML OIL as directed RUFINO TOSTERONE CYPIONATE 03690111501 No Longer Active Baltazar Childers MD Active LIPITOR 20 MG TABS Take one by mouth daily in evening ATORVASTATIN CALCIUM 89110156377 No Longer Active Baltazar Childers MD Activ e CRESTOR 10 MG TABS 1 by mouth every day R OSUVASTATIN CALCIUM 74773437066 No Longer Active Baltazar Childers MD Activ e PHENTERMINE HCL 37.5 MG TABS Take one by mouth daily 2 PHENTERMINE HCL 76721637074 No Longer Active Baltazar Childers MD Activ e ROBAXIN-750 750 MG TABS Take one by mouth daily ME THOCARBAMOL 12938432781 Active Baltazar Childers MD Active TIZANIDINE HCL 4 MG TABS 1 daily as needed for muscle spasm 2011 TIZANIDINE HCL 76141501508 No Longer Active Dawna Salazar RN Active [id number] 50-325-40 MG TABS 1 four time s a day as needed for heacache [id number] 70452716133 Active Baltazar Childers MD Active SUMATRIPTAN SUCCINATE 100 MG TABS 1 tablet by mouth at onset of migraine as needed SUMATRIPTAN SUCCINATE 10207882800 Active Baltazar bynum MD Active LORATADINE 10 MG TABS Take one by mouth daily LORATADINE 32688998279 Active Baltazar Childers MD Active OMEPRAZOLE 20 MG CPDR Take one by mouth daily OMEPRAZOLE 78539214727 Active Baltazar Childers MD Active HYDROXYZINE HCL 25 MG TABS Take one by mouth daily HYDROXYZINE HCL 91907436258 Active Baltazar Childers MD Active GLIPIZIDE 10 MG TABS 1 tablet by mouth twice daily GLIPIZIDE 82961057457 Active Baltazar Childers MD Active ALPRAZOLAM 1 MG TABS 1 tablet by mouth daily at bedtime for restles s leg ALPRAZOLAM 46567749680 Active Baltazar Childers MD Active METFORMIN HCL 1000 MG TABS Take one by mouth twice daily METFORMIN HCL 99562495847 Active Baltazar Childers MD Active TIZANIDINE HCL 4 MG TABS 1 daily as needed for muscle spasm 2011 TIZANIDINE HCL 4 MG TABS 011637 TIZANIDINE HCL Inactiv e PHENTERMINE HCL 37.5 MG TABS Take one by mouth daily 2 PHENTERMINE HCL 37.5 MG TABS 997538 PHENTERMINE HCL Inactive CRESTOR 10 MG TABS 1 by mouth every day C RESTOR 10 MG TABS 853478 ROSUVASTATIN CALCIUM Inactive LIPITOR 20 MG TABS Take one by mouth daily in evening LIPITOR 20 MG TABS 356001 ATORVASTATIN CALCIUM Inactive DEPO-TESTOSTERONE 200 MG/ML OIL as directed 8 DEPO-TESTOSTERONE 200 MG/ML OIL 271180 TESTOSTERONE CYPIONATE Inactive NAPROXEN 500 MG TABS 1 tablet by mouth twice daily 201 07/27/22 NAPROXEN 500 MG TABS 171168 NAPROXEN Inactive GABAPENTIN 300 MG CAPS 1 po qd x 2 days, then 1 po BID x 2 d ays, then 1 po TID GABAPENTIN 300 MG CAPS 158737 GABAPENTIN Inact amie ONETOUCH ULTRA BLUE STRP Test twice a day ONETOUCH ULTRA BLUE STRP GLUCOSE BLOOD Inactive NAPROXEN SODIUM 220 MG ORAL TABS 1 three times a day as needed 2 NAPROXEN SODIUM 220 MG ORAL TABS 536665 NAPROXEN SODIUM Inactive TOUJEO SOLOSTAR 300 UNIT/ML SC SOPN 10 units SC daily TOUJEO SOLOSTAR 300 UNIT/ML SC SOPN INSULIN GLARGINE Inac tive SUCRALFATE 1 GM TABS 1 four times a day to coat the stomach 2015 SUCRALFATE 1 GM TABS 547051 SUCRALFATE Inactive Immunizations Vaccine Administration Date Value Standard Floyd cription pneumococcal immunization administered Pneumovax 23 [CVX33] pneumococcal polysaccharide vaccine, 23 valent Seasonal influenza vaccine, injectable, containing preservative, for > 3 years old (Afluria, FluLaval, Fluzone, Fluvirin, Fluarix, Agriflu(>= 18 yo)) Fluzone (>3 yrs.) [DVX362] Influenza, seasonal, inject able Seasonal influenza vaccine, injectable, containing preservative, for > 3 years old (Afluria, FluLaval, Fluzone, Fluvirin, Fluarix, Agriflu(>= 18 yo)) Fluzone (>3 yrs.) [VYQ457] Influenza, seasonal, inject able Vital Signs Date [...] C - Chemistry sodium, serum 139 mmol/L 885-954 7880/07/07 potassium, serum 4.5 mmol/L 3.5-5.2 chloride, serum [...] 7.9 % 4.3-6.0 sodium, serum 139 mmol/L 742-533 3256/02/04 potassium, serum 5.4 mmol/L 3.5-5.2 chloride, serum [...] Panel - Chemistry sodium, serum 143 mmol/L 564-207 1998/12/19 carbon dioxide, venous blood 32.5 mmol/L 21.0-32 .0 potassium, serum 4.9 mmol/L 3.5-5.2 chloride, serum 101 mmol/L 98-107 blood glucose 129 mg/dL 65-110 urea nitrogen, blood 18 mg/dL 7-18 creatinine, serum 1.79 mg/dL 0.55-1.30 alanine aminotransferase (SGPT), serum 34 U/L 12-78 aspartate aminotransferase (SGOT), serum 26 U/L 15-37 calcium, serum 8.9 mg/dL 8.5-10.1 bilirubin, serum, total 0.30 mg/dL 0.00-1.00 cholesterol, serum 214 mg/dL 324-799 1510/12/19 triglyceride, serum, fasting 351 mg/dL 30-200 HDL cholesterol, serum 52 mg/dL 32-96 LDL cholesterol, serum 92 mg/dL 0-130 Lab Report: HGBA1C - Chemistry hemoglobin A1C, blood, as % of total hemoglobin 7.3 % 4.3-6.0 Lab Report: Renal Panel - Chemistry sodium, serum 141 mmol/L 613-195 7950/08/08 potassium, serum 4.9 mmol/L 3.5-5.2 chloride, serum [...] mg/dL Encounters Code Encounter Date Provider Facility CPT-54919 Level 4 Est. Patient 11:34:17 CDT Baltazar Childers MD [facility] CPT-50340 Level 3 Est. Patient 16:40:40 CDT Baltazar Childers MD [facility] CPT-85564 Level 4 Est. Patient 10:41:24 CDT Baltazar Childers MD [facility] CPT-15427 Level 4 Est. Patient 16:01:48 CDT Baltazar Childers MD [facility] CPT-39191 Level 4 Est. Patient 16:54:07 FAN ENGINE ENGINEER Baltazar Childers MD [facility] CPT-05760 Level 4 Est. Patient 15:42:12 CDT Baltazar Childers MD [facility] CPT-81500 Level 4 Est. Patient 11:29:55 CDT Baltazar Childers MD [facility] CPT-26606 Level 4 Est. Patient 14:15:19 CDT Baltazar Childers MD [facility] CPT-34418 Level 4 Est. Patient 12:20:13 CDT Baltazar Childers MD [facility] CPT-23650 Level 4 Est. Patient 14:52:45 FAN ENGINE ENGINEER Baltazar Childers MD [facility] CPT-50829 Level 4 Est. Patient 14:18:34 FAN ENGINE ENGINEER Baltazar Childers MD [facility] CPT-02845 Level 4 Est. Patient 15:18:29 CDT Baltazar Childers MD [facility] CPT-90997 Level 3 Est. Patient 12:45:34 CDT Baltazar Childers MD [facility] CPT-84961 Level 3 Est. Patient 10:10:11 CDT Baltazar Childers MD [facility] CPT-30560 Level 3 Est. Patient 14:07:50 CDT Baltazar Childers MD [facility] CPT-63003 Level 4 Est. Patient 12:26:10 FAN ENGINE ENGINEER Baltazar Childers MD [facility] CPT-02645 Level 4 Est. Patient 14:45:38 CDT Baltazar Childers MD [facility] CPT-18162 Level 4 New Patient 12:30:48 CDT Baltazar hinton MD [facility] Procedures Code Procedure Name Date Entry Date Standard Desc ription CPT-59952 Lipid - LAB USE ONLY 17:39:15 FAN ENGINE ENGINEER 9 CPT-60894 HGBA1C - LAB USE ONLY 17:39:15 FAN ENGINE ENGINEER CPT-75029 CMP - LAB USE ONLY 17:39:14 FAN ENGINE ENGINEER CPT-05046 Venipuncture Draw Fee 17:39:14 FAN ENGINE ENGINEER CPT-40750 First Vx - Ix admin via ID I M or jet injects without counseling by physician 16:55:17 FAN ENGINE ENGINEER CPT-98463 Fluzone Quadrivalent Intramuscular Suspe nsion 0.5 ML 16:55:17 FAN ENGINE ENGINEER CPT-42324 Renal Panel - LAB USE ONLY 17:39:20 CDT 201 10/31/07 CPT-72131 CBC - LAB USE ONLY 17:39:20 CDT CPT-66974 Venipuncture Draw Fee 17:39:20 CDT CPT-72206 Venipuncture Draw Fee 14:33:30 CDT CPT-63125 Renal Panel - LAB USE ONLY 14:33:30 CDT 201 10/31/07 CPT-50316 CBC - LAB USE ONLY 14:33:29 CDT CPT-72053 Venipuncture Draw Fee 14:50:21 FAN ENGINE ENGINEER CPT-85271 Immunization Single Admin 17:35:35 CDT 2014 CPT-85568 Fluzone Quadrivalent preservative free ( >=3yrs.) 17:35:35 CDT CPT-74572 Venipuncture Draw Fee 12:10:27 FAN ENGINE ENGINEER CPT-78883 Fluzone Quadrivalent Intramuscular Suspe nsion 0.5 ML 10:49:13 CDT CPT-38406 First Vx Component - Ix admi n via ID IM or jet inj without physician counseling 15:17:19 FAN ENGINE ENGINEER CPT-93970 Pneumovax 23 15:17:19 FAN ENGINE ENGINEER CPT-93034 Pneumovax 14:52:45 FAN ENGINE ENGINEER CPT-09078 Venipuncture Draw Fee 14:06:30 FAN ENGINE ENGINEER CPT-000 Give Appropriate Flu Vaccine 14:18:34 FAN ENGINE ENGINEER 2 CPT-94705 Administration single or combination vac cine inc oral 14:46:00 FAN ENGINE ENGINEER CPT-35920 Influenza split virus > age 3 14:46:00 FAN ENGINE ENGINEER CPT-OV Office Visit 19:13:16 CDT CPT-58627 Zostavax 18:41:56 CDT CPT-47656 Administration single or combination vac cine inc oral 12:56:39 CDT CPT-99486 Zoster Vaccine (Zostavax) 12:56:39 CDT 2012 CPT-64913 Venipuncture Draw Fee 10:58:57 CDT CPT-80046 Sono pelvis non OB uterus ovaries cervix 17:45:04 CDT CPT-28481 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
--- OUTSIDE RECORDS SUMMARY | 2019-10-27 13:20 | XMS REPORT | Clinical Summary ---
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 Benign neoplasm of colon PERIPHERAL NEUROPATHY [...] ronary atherosclerosis of unspecified type of vessel, [place] or graft OTH NONSPC ABN FINDNG RAD&OTH [...] tablet by mouth daily LE VOTHYROXINE SODIUM 92490219206 Active Carina Tucker LPN Active GLIPIZIDE 10 MG TAB take 2 tablets twice daily GLIPIZIDE 30581586290 Active Baltazar Childers MD Active SUCRALFATE 1 GM TABS 1 four times a day to coat the stomach 2015 SUCRALFATE 40096883413 No Longer Active Baltazar Childers MD Active PEN NEEDLES 31G X 6 MM MISC use 1 daily INSULIN PEN NEEDLE 59425441783 Active Bella Suarez MECHANICAL TECHNICIAN Active APARNAUONOFRE SOLOSTAR 300 UNIT/ML SC SOPN 10 units SC daily INSULIN GLARGINE 92059443775 No Longer Active Martita Godinez RMA Active LANT SOLOSTAR 100 UNIT/ML SC SOPN 10 units SC daily INSULIN GLARGINE 77532750243 Active Baltazar Childers MD Active NAPROXEN SODIUM 220 MG ORAL TABS 1 three times a day as needed 2 NAPROXEN SODIUM 68007344444 No Longer Active Baltazar Childers MD Active ATORVASTATIN CALCIUM 20 MG ORAL TABS Take 1 tab daily ATORVASTATIN CALCIUM 12212628409 Active Baltazar Childers MD Active FUROSEMIDE 40 MG TABS Take one by mouth daily FUROSEMIDE 66689059015 Active Baltazar Childers MD Active LISINOPRIL 20 MG TABS Take one by mouth daily at bedtime LISINOPRIL 39454460263 Active Baltazar Childers MD Active ONETOUCH ULTRA BLUE STRP Test twice a day GLUCO SE BLOOD 84846635879 No Longer Active Baltazar Childers MD Active TRUEPLUS LANCETS 33G MISC Test twice a day LANCET S 26503535732 Active KENDALL Juarez Active TRUEDRAW LANCING DEVICE MISC Test twice a day L ANCET DEVICES 13571540827 Active Baltazar Childers MD Active TRUETRACK TEST STRP Test twice a day GLUCOSE BLOO D 96904282984 Active KENDALL Juarez Active TRUEJONI BLOOD GLUCOSE W/DEVICE KIT Test twice a day BLOOD GLUCOSE MONITORING SUPPL 70571683381 Active Baltazar Childers MD Activ e HYDROCODONE-ACETAMINOPHEN 7.5-325 MG TABS Take 1 tab every 6-8 hour s PRN HYDROCODONE-ACETAMINOPHEN 47942723892 Active Baltazar Childers MD Active NORTRIPTYLINE HCL 50 MG CAPS 1 every night for neuropathy 4 NORTRIPTYLINE HCL 90374827245 Active Baltazar Childers MD Acti ve GABAPENTIN 300 MG CAPS 1 three times a day GABAPE NTIN 41584840360 Active Baltazar Childers MD Active GABAPENTIN 300 MG CAPS 1 po qd x 2 days, then 1 po BID x 2 d ays, then 1 po TID GABAPENTIN 50780763252 No Longer Active Baltazar silverman MD Active TRAMADOL HCL 50 MG TABS 1 twice a day as needed for pain TRAMADOL HCL 06859289153 Active Baltazar Childers MD Active NAPROXEN 500 MG TABS 1 tablet by mouth twice daily NAPROXEN 14671644980 No Longer Active Baltazar Childers MD Active PROAIR HFA 108 (90 BASE) MCG/ACT AERS 2 puffs four times a d ay as needed ALBUTEROL SULFATE 31306894284 Active Baltazar Childers MD Active DEPO-TESTOSTERONE 200 MG/ML OIL as directed RUFINO TOSTERONE CYPIONATE 40466136007 No Longer Active Baltazar Childers MD Active LIPITOR 20 MG TABS Take one by mouth daily in evening ATORVASTATIN CALCIUM 91536318034 No Longer Active Baltazar Childers MD Activ e CRESTOR 10 MG TABS 1 by mouth every day R OSUVASTATIN CALCIUM 62885301572 No Longer Active Baltazar Childers MD Activ e PHENTERMINE HCL 37.5 MG TABS Take one by mouth daily 2 PHENTERMINE HCL 16935374858 No Longer Active Baltazar Childers MD Activ e ROBAXIN-750 750 MG TABS Take one by mouth daily ME THOCARBAMOL 60931645899 Active Baltazar Childers MD Active TIZANIDINE HCL 4 MG TABS 1 daily as needed for muscle spasm 2011 TIZANIDINE HCL 60101348210 No Longer Active Dawna Salazar RN Active [id number] 50-325-40 MG TABS 1 four time s a day as needed for heacache [id number] 11364143442 Active Baltazar Childers MD Active SUMATRIPTAN SUCCINATE 100 MG TABS 1 tablet by mouth at onset of migraine as needed SUMATRIPTAN SUCCINATE 21298768031 Active Shonna Cram er MECHANICAL TECHNICIAN Active LORATADINE 10 MG TABS Take one by mouth daily LORATADINE 45261709777 Active KENDALL Juarez Active OMEPRAZOLE 20 MG CPDR Take one by mouth daily OMEPRAZOLE 42786721030 Active Baltazar Childers MD Active HYDROXYZINE HCL 25 MG TABS Take one by mouth daily HYDROXYZINE HCL 79327725720 Active Baltazar Childers MD Active ALPRAZOLAM 1 MG TABS 1 tablet by mouth daily at bedtime for restles s leg ALPRAZOLAM 87221693149 Active Baltazar Childers MD Active METFORMIN HCL 1000 MG TABS Take one by mouth twice daily METFORMIN HCL 96286766896 Active Baltazar Childers MD Active TIZANIDINE HCL 4 MG TABS 1 daily as needed for muscle spasm 2011 TIZANIDINE HCL 4 MG TABS 240805 TIZANIDINE HCL Inactiv e PHENTERMINE HCL 37.5 MG TABS Take one by mouth daily 2 PHENTERMINE HCL 37.5 MG TABS 755474 PHENTERMINE HCL Inactive CRESTOR 10 MG TABS 1 by mouth every day C RESTOR 10 MG TABS 291987 ROSUVASTATIN CALCIUM Inactive LIPITOR 20 MG TABS Take one by mouth daily in evening LIPITOR 20 MG TABS 242300 ATORVASTATIN CALCIUM Inactive DEPO-TESTOSTERONE 200 MG/ML OIL as directed 8 DEPO-TESTOSTERONE 200 MG/ML OIL 847172 TESTOSTERONE CYPIONATE Inactive NAPROXEN 500 MG TABS 1 tablet by mouth twice daily 201 07/27/22 NAPROXEN 500 MG TABS 910637 NAPROXEN Inactive GABAPENTIN 300 MG CAPS 1 po qd x 2 days, then 1 po BID x 2 d ays, then 1 po TID GABAPENTIN 300 MG CAPS 651928 GABAPENTIN Inact amie ONETOUCH ULTRA BLUE STRP Test twice a day ONETOUCH ULTRA BLUE STRP GLUCOSE BLOOD Inactive NAPROXEN SODIUM 220 MG ORAL TABS 1 three times a day as needed 2 NAPROXEN SODIUM 220 MG ORAL TABS 917842 NAPROXEN SODIUM Inactive TOURINKUO SOLOSTAR 300 UNIT/ML SC SOPN 10 units SC daily CELINA PARIKH 300 UNIT/ML SC SOPN INSULIN GLARGINE Inac tive SUCRALFATE 1 GM TABS 1 four times a day to coat the stomach 2015 SUCRALFATE 1 GM TABS 796977 SUCRALFATE Inactive Immunizations Vaccine Administration Date Value Standard Floyd cription pneumococcal immunization administered Pneumovax 23 [CVX33] pneumococcal polysaccharide vaccine, 23 valent Seasonal influenza vaccine, injectable, containing preservative, for > 3 years old (Afluria, FluLaval, Fluzone, Fluvirin, Fluarix, Agriflu(>= 18 yo)) Fluzone (>3 yrs.) [[id number]] Influenza, seasonal, inject able Seasonal influenza vaccine, injectable, containing preservative, for > 3 years old (Afluria, FluLaval, Fluzone, Fluvirin, Fluarix, Agriflu(>= 18 yo)) Fluzone (>3 yrs.) [TQP764] Influenza, seasonal, inject able Vital Signs Date [...] C - Chemistry sodium, serum 139 mmol/L 509-959 1888/07/07 potassium, serum 4.5 mmol/L 3.5-5.2 chloride, serum 99 mmol/L 98-107 carbon dioxide, venous blood 33.8 mmol/L 21.0-32 .0 blood glucose 209 mg/dL 65-110 calcium, serum 9.8 mg/dL 8.5-10.1 urea nitrogen, blood 14 mg/dL 7-18 creatinine, serum 1.89 mg/dL 0.55-1.30 hemoglobin A1C, blood, as % of total hemoglobin 8.3 % 4.3-6.0 sodium, serum 143 mmol/L 888-937 8642/06/19 potassium, serum 5.9 mmol/L 3.5-5.2 chloride, serum [...] Panel - Chemistry sodium, serum 143 mmol/L 202-560 0722/12/19 carbon dioxide, venous blood 32.5 mmol/L 21.0-32 .0 potassium, serum 4.9 mmol/L 3.5-5.2 chloride, serum 101 mmol/L 98-107 blood glucose 129 mg/dL 65-110 urea nitrogen, blood 18 mg/dL 7-18 creatinine, serum 1.79 mg/dL 0.55-1.30 alanine aminotransferase (SGPT), serum 34 U/L 12-78 aspartate aminotransferase (SGOT), serum 26 U/L 15-37 calcium, serum 8.9 mg/dL 8.5-10.1 bilirubin, serum, total 0.30 mg/dL 0.00-1.00 cholesterol, serum 214 mg/dL 355-648 8093/12/19 triglyceride, serum, fasting 351 mg/dL 30-200 HDL [...] Panel - Chemistry sodium, serum 141 mmol/L 769-865 8312/08/08 potassium, serum 4.9 mmol/L 3.5-5.2 chloride, serum 101 mmol/L 98-107 carbon dioxide, venous blood 34.1 mmol/L 21.0-32 .0 creatinine, serum 1.98 mg/dL 0.55-1.30 blood glucose 193 mg/dL 65-110 urea nitrogen, blood 30 mg/dL 7-18 calcium, serum 9.8 mg/dL 8.5-10.1 Encounters Code Encounter Date Provider Facility CPT-30664 Level 4 Est. Patient 14:22:31 CDT Baltazar Childers MD [facility]-72966 Level 4 Est. Patient 15:44:38 CDT Shonna Parker APRN [facility]-18687 Level 4 Est. Patient 11:34:17 CDT Baltazar Childers MD [facility]-26899 Level 3 Est. Patient 16:40:40 CDT Baltazar Childers MD [facility]-36709 Level 4 Est. Patient 10:41:24 CDT Baltazar Childers MD [facility]-47513 Level 4 Est. Patient 16:01:48 CDT Baltazar Childers MD [facility]-91111 Level 4 Est. Patient 16:54:07 [facility] [employer] Baltazar Childers MD [facility]-57430 Level 4 Est. Patient 15:42:12 CDT Baltazar Childers MD [facility] CPT-99424 Level 4 Est. Patient 11:29:55 CDT Baltazar Childers MD [facility] CPT-72492 Level 4 Est. Patient 14:15:19 CDT Baltazar Childers MD [facility] CPT-32185 Level 4 Est. Patient 12:20:13 CDT Baltazar Childers MD [facility] CPT-13928 Level 4 Est. Patient 14:52:45 [facility] [employer] Baltazar Childers MD [facility] CPT-18882 Level 4 Est. Patient 14:18:34 [employer] Baltazar Childers MD [facility] CPT-75992 Level 4 Est. Patient 15:18:29 CDT Baltazar Childers MD [facility] CPT-97314 Level 3 Est. Patient 12:45:34 CDT Baltazar Childers MD [facility] CPT-52117 Level 3 Est. Patient 10:10:11 CDT Baltazar Childers MD [facility] CPT-94498 Level 3 Est. Patient 14:07:50 CDT Baltazar Childers MD [facility] CPT-14379 Level 4 Est. Patient 12:26:10 [facility] [employer] Baltazar Childers MD [facility] CPT-09771 Level 4 Est. Patient 14:45:38 CDT Baltazar Childers MD [facility] CPT-92683 Level 4 New Patient 12:30:48 CDT Baltazar hinton MD [facility] Procedures Code Procedure Name Date Entry Date Standard Desc ription CPT-26950 Lipid - LAB USE ONLY 17:39:15 [facility] [employer] 9 CPT-27553 HGBA1C - LAB USE ONLY 17:39:15 [facility] [employer] CPT-55835 CMP - LAB USE ONLY 17:39:14 [facility] [employer] CPT-39247 Venipuncture Draw Fee 17:39:14 [facility] CPT-39579 First Vx - Ix admin via ID I M or jet injects without counseling by physician 16:55:17 [facility] [employer] CPT-22972 Fluzone Quadrivalent Intramuscular Suspe nsion 0.5 ML 16:55:17 [facility] [employer] CPT-60142 Renal Panel - LAB USE ONLY 17:39:20 CDT 201 10/31/07 CPT-77263 CBC - LAB USE ONLY 17:39:20 CDT CPT-94285 Venipuncture Draw Fee 17:39:20 CDT CPT-47339 Venipuncture Draw Fee 14:33:30 CDT CPT-94265 Renal Panel - LAB USE ONLY 14:33:30 CDT 201 10/31/07 CPT-65392 CBC - LAB USE ONLY 14:33:29 CDT CPT-00721 Venipuncture Draw Fee 14:50:21 [facility] [employer] CPT-74415 Immunization Single Admin 17:35:35 CDT 2014 CPT-02874 Fluzone Quadrivalent preservative free ( >=3yrs.) 17:35:35 CDT CPT-48738 Venipuncture Draw Fee 12:10:27 [facility] [employer] CPT-81266 Fluzone Quadrivalent Intramuscular Suspe nsion 0.5 ML 10:49:13 CDT CPT-17018 First Vx Component - Ix admi n via ID IM or jet inj without physician counseling 15:17:19 [facility] CPT-23381 Pneumovax 23 15:17:19 [facility] CPT-09454 Pneumovax 14:52:45 [facility] CPT-34933 Venipuncture Draw Fee 14:06:30 [facility] CPT-000 Give Appropriate Flu Vaccine 14:18:34 [facility] [employer] 2 CPT-78710 Administration single or combination vac cine inc oral 14:46:00 [facility] [employer] CPT-70823 Influenza split virus > age 3 14:46:00 [facility] [employer] CPT-OV Office Visit 19:13:16 CDT CPT-26316 Zostavax 18:41:56 CDT CPT-22641 Administration single or combination vac cine inc oral 12:56:39 CDT CPT-62525 Zoster Vaccine (Zostavax) 12:56:39 CDT 2012 CPT-78566 Venipuncture Draw Fee 10:58:57 CDT CPT-92185 Sono pelvis non OB uterus ovaries cervix 17:45:04 CDT CPT-71237 Sono retroperitoneal complete kidneys an d bladder 17:14:36 CDT CPT-OV Office Visit 14:59:38 [facility] [employer] CPT-J1070 Depo Testosterone 100 mg 14:50:13 CDT 03/05 CPT-73496 Abx/Therapy Injection 14:50:13 CDT CPT-80838 Administration single or combination vac cine inc oral 14:34:43 CDT CPT-93387 Influenza split virus > age 3 14:34:43 CDT CPT-J1070 Depo Testosterone 100 mg 17:37:13 CDT 01/11 CPT-78849 Abx/Therapy Injection 17:37:13 CDT CPT-06262 Venipuncture Draw Fee 16:30:13 CDT CPT-04209 Venipuncture Draw Fee 16:29:43 CDT CPT-J1070 Depo Testosterone 100 mg 14:45:38 CDT 01/11
--- OUTSIDE RECORDS SUMMARY | 2019-10-27 13:21 | XMS REPORT | Clinical Summary ---
Author Author Abhishek, Elba Lance [facility] Address Unknown [...] libido COLON POLYPS 211.3 Resolved Lolis Thomas [employer] Benign neoplasm of colon PERIPHERAL NEUROPATHY 356.9 [...] y atherosclerosis of unspecified type of vessel, cachil dehe or graft OTH NONSPC ABN FINDNG RAD&OTH [...] MISC Test twice a day LANCET S 25855682195 Active Baltazar Childers MD Active TRUEDRAW LANCING DEVICE MISC Test twice a day L ANCET DEVICES 67752592243 Active Baltazar Childers MD Active TRUETRACK TEST STRP Test twice a day GLUCOSE BLOO D 24994633824 Active Baltazar Childers MD Active TRUETRACK BLOOD GLUCOSE W/DEVICE KIT Test twice a day BLOOD GLUCOSE MONITORING SUPPL 39266741426 Active Bella Suarez APRN Active HYDROCODONE-ACETAMINOPHEN 7.5-325 MG TABS Take 1 tab every 6-8 hour s PRN HYDROCODONE-ACETAMINOPHEN 06096443191 Active Baltazar Childers MD Active NORTRIPTYLINE HCL 50 MG CAPS 1 every night for neuropathy 4 NORTRIPTYLINE HCL 34666124928 Active Bella Suarez APRN Active GABAPENTIN 300 MG CAPS 1 three times a day GABAPE NTIN 69564669543 Active Baltazar Childers MD Active GABAPENTIN 300 MG CAPS 1 po qd x 2 days, then 1 po BID x 2 d ays, then 1 po TID GABAPENTIN 10546031489 No Longer Active Baltazar silverman MD Active TRAMADOL HCL 50 MG TABS 1 twice a day as needed for pain TRAMADOL HCL 30018208398 Active Baltazar Childers MD Active NAPROXEN 500 MG TABS 1 tablet by mouth twice daily NAPROXEN 68440671313 No Longer Active Baltazar Childers MD Active PROAIR HFA 108 (90 BASE) MCG/ACT AERS 2 puffs four times a d ay as needed ALBUTEROL SULFATE 25624349819 Active Baltazar Childers MD Active DEPO-TESTOSTERONE 200 MG/ML OIL as directed RUFINO TOSTERONE CYPIONATE 00063994900 No Longer Active Blatazar Childers MD Active LIPITOR 20 MG TABS Take one by mouth daily in evening ATORVASTATIN CALCIUM 70580277371 No Longer Active Baltazar Childers MD Activ e CRESTOR 10 MG TABS 1 by mouth every day R OSUVASTATIN CALCIUM 02331304752 No Longer Active Baltazar Childers MD Activ e PHENTERMINE HCL 37.5 MG TABS Take one by mouth daily 2 PHENTERMINE HCL 31893730597 No Longer Active Baltazar Childers MD Activ e ROBAXIN-750 750 MG TABS Take one by mouth daily ME THOCARBAMOL 07337666251 Active Baltazar Childers MD Active TIZANIDINE HCL 4 MG TABS 1 daily as needed for muscle spasm 2011 TIZANIDINE HCL 79184766562 No Longer Active Dawna Salazar RN Active Vascular DesignsUCH ULTRA BLUE STRP Test twice a day GLUCO SE BLOOD 72071588896 Active Baltazar Childers MD Active [id number] 50-325-40 MG TABS 1 four time s a day as needed for heacache [id number] 37246344282 Active Baltazar Childers MD Active SUMATRIPTAN SUCCINATE 100 MG TABS 1 tablet by mouth at onset of migraine as needed SUMATRIPTAN SUCCINATE 32722943477 Active Baltazar barron MD Active LORATADINE 10 MG TABS Take one by mouth daily LORATADINE 69404888103 Active Baltazar Childers MD Active FUROSEMIDE 40 MG TABS Take one by mouth daily FUROSEMIDE 49053703831 Active Baltazar Childers MD Active LISINOPRIL 20 MG TABS Take one by mouth daily at bedtime LISINOPRIL 07232056955 Active Bella Suarez APRN Active OMEPRAZOLE 20 MG CPDR Take one by mouth daily OMEPRAZOLE 28757130134 Active Baltazar Childers MD Active HYDROXYZINE HCL 25 MG TABS Take one by mouth daily HYDROXYZINE HCL 12743370895 Active Baltazar Childers MD Active GLIPIZIDE 10 MG TABS 1 tablet by mouth twice daily GLIPIZIDE 31818223614 Active Baltazar Childers MD Active ALPRAZOLAM 1 MG TABS 1 tablet by mouth daily at bedtime for restles s leg ALPRAZOLAM 44255431656 Active Baltazar Childers MD Active METFORMIN HCL 1000 MG TABS Take one by mouth twice daily METFORMIN HCL 55370026693 Active Bella Suarez APRN Active TIZANIDINE HCL 4 MG TABS 1 daily as needed for muscle spasm 2011 TIZANIDINE HCL 4 MG TABS 801419 TIZANIDINE HCL Inactiv e PHENTERMINE HCL 37.5 MG TABS Take one by mouth daily 2 PHENTERMINE HCL 37.5 MG TABS 663712 PHENTERMINE HCL Inactive CRESTOR 10 MG TABS 1 by mouth every day C RESTOR 10 MG TABS ROSUVASTATIN CALCIUM Inactive LIPITOR 20 MG TABS Take one by mouth daily in evening LIPITOR 20 MG TABS 190154 ATORVASTATIN CALCIUM Inactive DEPO-TESTOSTERONE 200 MG/ML OIL as directed 8 DEPO-TESTOSTERONE 200 MG/ML OIL 610149 TESTOSTERONE CYPIONATE Inactive NAPROXEN 500 MG TABS 1 tablet by mouth twice daily 201 07/27/22 NAPROXEN 500 MG TABS 445684 NAPROXEN Inactive GABAPENTIN 300 MG CAPS 1 po qd x 2 days, then 1 po BID x 2 d ays, then 1 po TID GABAPENTIN 300 MG CAPS 917311 GABAPENTIN Inact amie Immunizations Vaccine Administration Date Value Standard Floyd cription pneumococcal immunization administered Pneumovax 23 [CVX33] pneumococcal polysaccharide vaccine, 23 valent Seasonal influenza vaccine, injectable, containing preservative, for > 3 years old (Afluria, FluLaval, Fluzone, Fluvirin, Fluarix, Agriflu(>= 18 yo)) Fluzone (>3 yrs.) [[id number]] Influenza, seasonal, inject able Seasonal influenza vaccine, injectable, containing preservative, for > 3 years old (Afluria, FluLaval, Fluzone, Fluvirin, Fluarix, Agriflu(>= 18 yo)) Fluzone (>3 yrs.) [XIR813] Influenza, seasonal, inject able Vital Signs Date [...] Panel - Chemistry sodium, serum 139 mmol/L 436-527 3716/01/20 potassium, serum 5.3 mmol/L 3.5-5.2 chloride, serum [...] mg/g mg/g{creat} 0-29 cholesterol, serum 319 mg/dL 571-779 3112/08/21 triglyceride, serum, fasting 546 mg/dL 30-200 HDL cholesterol, serum 39 mg/dL 32-96 LDL cholesterol, serum 167.00 mg/dL 5.00-130.00 hemoglobin A1C, blood, as % of total hemoglobin 7.7 % 4.3-6.0 sodium, serum 138 mmol/L 192-756 3202/08/21 potassium, serum 4.3 mmol/L 3.5-5.2 chloride, serum [...] 0-19 Encounters Code Encounter Date Provider Facility CPT-42675 Level 4 Est. Patient 14:15:19 CDT Baltazar Childers MD [facility] CPT-86353 Level 4 Est. Patient 12:20:13 CDT Baltazar Childers MD [facility] CPT-05513 Level 4 Est. Patient 14:52:45 [employer] Baltazar Childers MD [facility] CPT-61199 Level 4 Est. Patient 14:18:34 [employer] Baltazar Childers MD [facility] CPT-18952 Level 4 Est. Patient 15:18:29 CDT Baltazar Childers MD [facility] CPT-64731 Level 3 Est. Patient 12:45:34 CDT Baltazar Childers MD [facility] CPT-64978 Level 3 Est. Patient 10:10:11 CDT Baltazar Childers MD [facility] CPT-55804 Level 3 Est. Patient 14:07:50 CDT Baltazar Childers MD [facility] CPT-85851 Level 4 Est. Patient 12:26:10 [employer] Baltazar Childers MD [facility] CPT-44280 Level 4 Est. Patient 14:45:38 CDT Baltazar Childers MD [facility] CPT-26595 Level 4 New Patient 12:30:48 CDT Baltazar hinton MD [facility] Procedures Code Procedure Name Date Entry Date Standard Desc ription CPT-72904 Venipuncture Draw Fee 12:10:27 [employer] CPT-42252 Fluzone Quadrivalent Intramuscular Suspe nsion 0.5 ML 10:49:13 CDT CPT-47683 First Vx Component - Ix admi n via ID IM or jet inj without physician counseling 15:17:19 [employer] CPT-42691 Pneumovax 23 15:17:19 [employer] CPT-35595 Pneumovax 14:52:45 [employer] CPT-83332 Venipuncture Draw Fee 14:06:30 [employer] CPT-000 Give Appropriate Flu Vaccine 14:18:34 [employer] 2 CPT-13372 Administration single or combination vac cine inc oral 14:46:00 [employer] CPT-33398 Influenza split virus > age 3 14:46:00 [employer] CPT-OV Office Visit 19:13:16 CDT CPT-65460 Zostavax 18:41:56 CDT CPT-01089 Administration single or combination vac cine inc oral 12:56:39 CDT CPT-96580 Zoster Vaccine (Zostavax) 12:56:39 CDT 2012 CPT-79337 Venipuncture Draw Fee 10:58:57 CDT CPT-82188 Sono pelvis non OB uterus ovaries cervix 17:45:04 CDT CPT-80526 Sono retroperitoneal complete kidneys an d bladder 17:14:36 CDT CPT-OV Office Visit 14:59:38 [employer] CPT-J1070 Depo Testosterone 100 mg 14:50:13 CDT 03/05 CPT-90913 Abx/Therapy Injection 14:50:13 CDT CPT-40955 Administration single or combination vac cine inc oral 14:34:43 CDT CPT-59127 Influenza split virus > age 3 14:34:43 CDT CPT-J1070 Depo Testosterone 100 mg 17:37:13 CDT 01/11 CPT-57001 Abx/Therapy Injection 17:37:13 CDT CPT-49161 Venipuncture Draw Fee 16:30:13 CDT CPT-29354 Venipuncture Draw Fee 16:29:43 CDT CPT-J1070 Depo Testosterone 100 mg 14:45:38 CDT 01/11
--- OUTSIDE RECORDS SUMMARY | 2019-10-27 13:21 | XMS REPORT | Clinical Summary ---
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 Benign neoplasm of colon PERIPHERAL NEUROPATHY 356.9 [...] ronary atherosclerosis of unspecified type of vessel, tribal or graft OTH NONSPC ABN FINDNG RAD&OTH [...] 1 tablet daily for 4 days AZITHROMYCIN [id number] No Longer A ctive Baltazar Childers MD Active LANTUS SOLOSTAR 100 UNIT/ML SUBCUTANEOUS SOLUTION PEN- INJECTOR 30 units SC daily INSULIN GLARGINE 91167435457 Active Baltazar Childers MD Active AMLODIPINE BESYLATE 5 MG ORAL TABLET 1 tab daily for HTN AMLODIPINE BESYLATE 59195985676 Active Baltazar Childers MD Active SYNTHROID 100 MCG ORAL TABLET 1 tablet by mouth daily LEVOTHYROXINE SODIUM 86341893710 Active Baltazar Childers MD Active GLIPIZIDE 10 MG ORAL TABLET take 2 tablets twice daily GLIPIZIDE 15694537276 Active Baltazar Childers MD Active SUCRALFATE 1 GM ORAL TABLET 1 four times a day to coat the stoma ch SUCRALFATE 83287103963 No Longer Active Baltazar Childers MD Active PEN NEEDLES 31G X 6 MM use 1 daily INSULIN PEN NE EDLE 72302395549 Active KENDALL Juarez Active TOUJEO SOLOSTAR 300 UNIT/ML SUBCUTANEOUS SOLUTION PEN- INJECTOR 10 units SC daily INSULIN GLARGINE 69117516194 No Longer Active Rola ARGUETA Active NAPROXEN SODIUM 220 MG ORAL TABLET 1 three times a day as needed NAPROXEN SODIUM 57579160904 No Longer Active Baltazar Childers MD Active ATORVASTATIN CALCIUM 20 MG ORAL TABLET Take 1 tab daily ATORVASTATIN CALCIUM 97146863682 Active Baltazar Childers MD A ctive FUROSEMIDE 40 MG ORAL TABLET Take one by mouth daily FUROSEMIDE 56194789533 Active Jessy Arellano LPN Active LISINOPRIL 20 MG ORAL TABLET Take one by mouth daily at bedtime LISINOPRIL 73523620888 No Longer Active Baltazar Childers MD Active ONETOUCH ULTRA BLUE IN VITRO STRIP Test twice a day 07/11/11 GLUCOSE BLOOD 69173802635 No Longer Active Baltazar Childers MD Acti ve TRUEPLUS LANCETS 33G Test twice a day LANCETS 9435846 0098 Active KENDALL Juarez Active TRUEDRAW LANCING DEVICE Test twice a day LANCET DEVICES 41257409023 Active Baltazar Childers MD Active TRUETRACK TEST IN VITRO STRIP Test twice a day GLUCOSE BLOOD 20902085308 Active KENDALL Juarez Active TRUETRACK BLOOD GLUCOSE w/Device KIT Test twice a day BLOOD GLUCOSE MONITORING SUPPL 37737681549 Active Baltazar Childers MD Activ e HYDROCODONE-ACETAMINOPHEN 7.5-325 MG ORAL TABLET Take 1 tab every 6-8 hours PRN HYDROCODONE-ACETAMINOPHEN 63633012594 Active Baltazar Nickerson MD Active NORTRIPTYLINE HCL 50 MG ORAL CAPSULE 1 every night for neuropathy 2 NORTRIPTYLINE HCL 57286561543 Active Baltazar Childers MD Acti ve GABAPENTIN 300 MG ORAL CAPSULE 1 three times a day GABAPENTIN 62158801666 Active Baltazar Childers MD Active GABAPENTIN 300 MG ORAL CAPSULE 1 po qd x 2 days, then 1 po BID x 2 days, then 1 po TID GABAPENTIN 55931256888 No Longer Active Baltazar Childers MD Active TRAMADOL HCL 50 MG ORAL TABLET 1 twice a day as needed for pain 201 07/27/28 TRAMADOL HCL 25789435164 Active Baltazar Childers MD Active NAPROXEN 500 MG ORAL TABLET 1 tablet by mouth twice daily NAPROXEN 96143551881 No Longer Active Baltazar Childers MD Active PROAIR HFA 108 (90 Base) MCG/ACT INHALATION AEROSOL SO LUTION 2 puffs four times a day as needed ALBUTEROL SULFATE 42984593700 Active Paul Childers MD Active DEPO-TESTOSTERONE 200 MG/ML INTRAMUSCULAR SOLUTION as directed TESTOSTERONE CYPIONATE 62535524335 No Longer Active Baltazar Childers MD Active LIPITOR 20 MG ORAL TABLET Take one by mouth daily in evening ATORVASTATIN CALCIUM 25447878532 No Longer Active Baltazar Childers MD Active CRESTOR 10 MG ORAL TABLET 1 by mouth every day ROSUVASTATIN CALCIUM 52911742887 No Longer Active Baltazar Childres MD Active PHENTERMINE HCL 37.5 MG ORAL TABLET Take one by mouth daily PHENTERMINE HCL 29622572860 No Longer Active Baltazar Childers MD Ac tive ROBAXIN-750 750 MG ORAL TABLET Take one by mouth daily METHOCARBAMOL 18679608625 Active Baltazar Childers MD Active TIZANIDINE HCL 4 MG ORAL TABLET 1 daily as needed for muscle spa sm TIZANIDINE HCL 37795567364 No Longer Active Dawna Salazar RN Active [id number] 50-325-40 MG ORAL TABLET 1 fo ur times a day as needed for heacache [id number]-[id number] 85032039390 Active Baltazar Childers MD Active SUMATRIPTAN SUCCINATE 100 MG ORAL TABLET 1 tablet by m outh at onset of migraine as needed SUMATRIPTAN SUCCINATE 93516174457 Active Bertha Vazquez LPN Active LORATADINE 10 MG ORAL TABLET Take one by mouth daily LORATADINE 08006301963 Active Baltazar Childers MD Active OMEPRAZOLE 20 MG ORAL CAPSULE DELAYED RELEASE Take one by mouth jostin ly OMEPRAZOLE 66287862328 Active Baltazar Childers MD Active HYDROXYZINE HCL 25 MG ORAL TABLET Take one by mouth daily HYDROXYZINE HCL 87377844828 Active Baltazar Childers MD Active ALPRAZOLAM 1 MG ORAL TABLET 1 tablet by mouth daily at bedti mn for restless leg ALPRAZOLAM 25424623130 Active Baltazar Childers MD Active METFORMIN HCL 1000 MG ORAL TABLET Take one by mouth twice daily METFORMIN HCL 70080914909 Active Baltazar Childers MD Active TIZANIDINE HCL 4 MG ORAL TABLET 1 daily as needed for muscle spa sm TIZANIDINE HCL 4 MG ORAL TABLET 179148 TIZANIDINE HCL Inactive PHENTERMINE HCL 37.5 MG ORAL TABLET Take one by mouth daily PHENTERMINE HCL 37.5 MG ORAL TABLET 549476 PHENTERMINE HCL Inac tive CRESTOR 10 MG ORAL TABLET 1 by mouth every day CRESTOR 10 MG ORAL TABLET 232724 ROSUVASTATIN CALCIUM Inactive LIPITOR 20 MG ORAL TABLET Take one by mouth daily in evening LIPITOR 20 MG ORAL TABLET 689099 ATORVASTATIN CALCIUM Inactive DEPO-TESTOSTERONE 200 MG/ML INTRAMUSCULAR SOLUTION as directed DEPO-TESTOSTERONE 200 MG/ML INTRAMUSCULAR SOLUTION 297606 RUFINO TOSTERONE CYPIONATE Inactive NAPROXEN 500 MG ORAL TABLET 1 tablet by mouth twice daily NAPROXEN 500 MG ORAL TABLET 304430 NAPROXEN Inactive GABAPENTIN 300 MG ORAL CAPSULE 1 po qd x 2 days, then 1 po BID x 2 days, then 1 po TID GABAPENTIN 300 MG ORAL CAPSULE 739074 GABAP ENTIN Inactive ONETOUCH ULTRA BLUE IN VITRO STRIP Test twice a day 07/11/11 ONETOUCH ULTRA BLUE IN VITRO STRIP GLUCOSE BLOOD Inact amie NAPROXEN SODIUM 220 MG ORAL TABLET 1 three times a day as needed NAPROXEN SODIUM 220 MG ORAL TABLET 756653 NAPROXEN SODI UM Inactive TOUJEO SOLOSTAR 300 UNIT/ML SUBCUTANEOUS SOLUTION PEN- INJECTOR 10 units SC daily TOUJEO SOLOSTAR 300 UNIT/ML SUBCUTANEOUS SOLUTION PEN-INJECTOR INSULIN GLARGINE Inactive SUCRALFATE 1 GM ORAL TABLET 1 four times a day to coat the stoma ch SUCRALFATE 1 GM ORAL TABLET 861713 SUCRALFATE Inac tive ZITHROMAX Z-ISAIAS 250 MG ORAL TABLET Take two tablets to day and then 1 tablet daily for 4 days ZITHROMAX Z-ISAIAS 250 MG ORAL TAB LET 725520 AZITHROMYCIN Inactive Immunizations Vaccine Administration Date Value Standard Floyd cription pneumococcal immunization administered Pneumovax 23 [CVX33] pneumococcal polysaccharide vaccine, 23 valent Seasonal influenza vaccine, injectable, containing preservative, for > 3 years old (Afluria, FluLaval, Fluzone, Fluvirin, Fluarix, Agriflu(>= 18 yo)) Fluzone (>3 yrs.) [HAF314] Influenza, seasonal, inject able Seasonal influenza vaccine, injectable, containing preservative, for > 3 years old (Afluria, FluLaval, Fluzone, Fluvirin, Fluarix, Agriflu(>= 18 yo)) Fluzone (>3 yrs.) [CFH492] Influenza, seasonal, inject able Vital Signs Date [...] - Chem istry sodium, serum 139 mmol/L 489-626 2183/10/03 potassium, serum 4.7 mmol/L 3.5-5.2 chloride, serum 98 mmol/L 98-107 carbon dioxide, venous blood 28.7 mmol/L 21.0-32 .0 blood glucose 218 mg/dL 65-110 calcium, serum 9.8 mg/dL 8.5-10.1 urea nitrogen, blood 19 mg/dL 7-18 creatinine, serum 1.68 mg/dL 0.60-1.30 Lab Report: Basic Metabolic Panel, HGBA1 C - Chemistry sodium, serum 143 mmol/L 378-330 8958/06/19 potassium, serum 5.9 mmol/L 3.5-5.2 chloride, serum 105 mmol/L 98-107 carbon dioxide, venous blood 30.2 mmol/L 21.0-32 .0 blood glucose 189 mg/dL 65-110 calcium, serum 9.7 mg/dL 8.5-10.1 urea nitrogen, blood 37 mg/dL 7-18 creatinine, serum 2.11 mg/dL 0.55-1.30 hemoglobin A1C, blood, as % of total hemoglobin 8.2 % 4.3-6.0 Lab Report: CBC, Renal Panel - Chemistry sodium, serum 142 mmol/L 569-432 5746/08/11 potassium, serum 4.8 mmol/L 3.5-5.2 chloride, serum [...] Panel - Chemistry sodium, serum 143 mmol/L 808-520 7027/12/19 carbon dioxide, venous blood 32.5 mmol/L 21.0-32 .0 potassium, serum 4.9 mmol/L 3.5-5.2 chloride, serum 101 mmol/L 98-107 blood glucose 129 mg/dL 65-110 urea nitrogen, blood 18 mg/dL 7-18 creatinine, serum 1.79 mg/dL 0.55-1.30 alanine aminotransferase (SGPT), serum 34 U/L 12-78 aspartate aminotransferase (SGOT), serum 26 U/L 15-37 calcium, serum 8.9 mg/dL 8.5-10.1 bilirubin, serum, total 0.30 mg/dL 0.00-1.00 cholesterol, serum 214 mg/dL 713-805 4334/12/19 triglyceride, serum, fasting 351 mg/dL 30-200 HDL [...] 4.3-6.0 Encounters Code Encounter Date Provider Facility CPT-73436 Level 4 Est. Patient 12:25:11 CDT Baltazar Childers MD [facility] CPT-96120 Level 4 Est. Patient 14:22:31 CDT Baltazar Childers MD [facility]-87525 Level 4 Est. Patient 15:44:38 CDT Shonna Elena CASTELLANOS [facility] CPT-03594 Level 4 Est. Patient 11:34:17 CDT Baltazar Childers MD [facility] CPT-67959 Level 3 Est. Patient 16:40:40 CDT Baltazar Childers MD [facility] CPT-50382 Level 4 Est. Patient 10:41:24 CDT Baltazar Childers MD [facility]-18703 Level 4 Est. Patient 16:01:48 CDT Baltazar Childers MD [facility] CPT-90929 Level 4 Est. Patient 16:54:07 IMAGING ANALYST Baltazar Childers MD [facility]-84200 Level 4 Est. Patient 15:42:12 CDT Baltazar Childers MD [facility] CPT-75829 Level 4 Est. Patient 11:29:55 CDT Baltazar Childers MD [facility] CPT-47279 Level 4 Est. Patient 14:15:19 CDT Baltazar Childers MD [facility] CPT-17945 Level 4 Est. Patient 12:20:13 CDT Baltazar Childers MD [facility] CPT-35392 Level 4 Est. Patient 14:52:45 IMAGING ANALYST Baltazar Childers MD [facility] CPT-16791 Level 4 Est. Patient 14:18:34 IMAGING ANALYST Baltazar Childers MD [facility]-59036 Level 4 Est. Patient 15:18:29 CDT Baltazar Childers MD [facility] CPT-61789 Level 3 Est. Patient 12:45:34 CDT Baltazar Childers MD [facility] CPT-31503 Level 3 Est. Patient 10:10:11 CDT Baltazar Childers MD [facility] CPT-67288 Level 3 Est. Patient 14:07:50 CDT Baltazar Chidlers MD [facility] CPT-34207 Level 4 Est. Patient 12:26:10 IMAGING ANALYST Baltazar Childers MD [facility] CPT-65215 Level 4 Est. Patient 14:45:38 CDT Baltazar Childers MD [facility] CPT-91057 Level 4 New Patient 12:30:48 CDT Baltazar hinton MD [facility] Procedures Code Procedure Name Date Entry Date Standard Desc ription CPT-79635 First Vx - Ix admin via ID I M or jet injects without counseling by physician 13:08:59 CDT CPT-71647 Fluzone Quadrivalent Intramuscular Suspe nsion 0.5 ML 13:08:59 CDT CPT-98769 Venipuncture Draw Fee 12:04:12 CDT CPT-43966 Lipid - LAB USE ONLY 17:39:15 IMAGING ANALYST 9 CPT-00651 HGBA1C - LAB USE ONLY 17:39:15 IMAGING ANALYST CPT-32748 CMP - LAB USE ONLY 17:39:14 IMAGING ANALYST CPT-72532 Venipuncture Draw Fee 17:39:14 IMAGING ANALYST CPT-66814 First Vx - Ix admin via ID I M or jet injects without counseling by physician 16:55:17 IMAGING ANALYST CPT-10770 Fluzone Quadrivalent Intramuscular Suspe nsion 0.5 ML 16:55:17 IMAGING ANALYST CPT-49788 Renal Panel - LAB USE ONLY 17:39:20 CDT 201 10/31/07 CPT-40612 CBC - LAB USE ONLY 17:39:20 CDT CPT-66827 Venipuncture Draw Fee 17:39:20 CDT CPT-91629 Venipuncture Draw Fee 14:33:30 CDT CPT-00301 Renal Panel - LAB USE ONLY 14:33:30 CDT 201 10/31/07 CPT-56442 CBC - LAB USE ONLY 14:33:29 CDT CPT-38629 Venipuncture Draw Fee 14:50:21 IMAGING ANALYST CPT-40659 Immunization Single Admin 17:35:35 CDT 2014 CPT-04579 Fluzone Quadrivalent preservative free ( >=3yrs.) 17:35:35 CDT CPT-28241 Venipuncture Draw Fee 12:10:27 IMAGING ANALYST CPT-65242 Fluzone Quadrivalent Intramuscular Suspe nsion 0.5 ML 10:49:13 CDT CPT-20448 First Vx Component - Ix admi n via ID IM or jet inj without physician counseling 15:17:19 IMAGING ANALYST CPT-65254 Pneumovax 23 15:17:19 IMAGING ANALYST CPT-48900 Pneumovax 14:52:45 IMAGING ANALYST CPT-54608 Venipuncture Draw Fee 14:06:30 IMAGING ANALYST CPT-000 Give Appropriate Flu Vaccine 14:18:34 IMAGING ANALYST 2 CPT-87872 Administration single or combination vac cine inc oral 14:46:00 IMAGING ANALYST CPT-69350 Influenza split virus > age 3 14:46:00 IMAGING ANALYST CPT-OV Office Visit 19:13:16 CDT CPT-00297 Zostavax 18:41:56 CDT CPT-06961 Administration single or combination vac cine inc oral 12:56:39 CDT CPT-41970 Zoster Vaccine (Zostavax) 12:56:39 CDT 2012 CPT-30230 Venipuncture Draw Fee 10:58:57 CDT CPT-05484 Sono pelvis non OB uterus ovaries cervix 17:45:04 CDT CPT-41695 Sono retroperitoneal complete kidneys an d bladder 17:14:36 CDT CPT-OV Office Visit 14:59:38 IMAGING ANALYST CPT-J1070 Depo Testosterone 100 mg 14:50:13 CDT 03/05 CPT-72725 Abx/Therapy Injection 14:50:13 CDT CPT-12065 Administration single or combination vac cine inc oral 14:34:43 CDT CPT-14017 Influenza split virus > age 3 14:34:43 CDT CPT-J1070 Depo Testosterone 100 mg 17:37:13 CDT 01/11 CPT-29598 Abx/Therapy Injection 17:37:13 CDT CPT-42717 Venipuncture Draw Fee 16:30:13 CDT CPT-84444 Venipuncture Draw Fee 16:29:43 CDT CPT-J1070 Depo Testosterone 100 mg 14:45:38 CDT 01/11
--- OUTSIDE RECORDS SUMMARY | 2019-10-27 13:21 | XMS REPORT | Clinical Summary ---
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 Benign neoplasm of colon PERIPHERAL NEUROPATHY [...] 1 tab daily for HTN AMLODIPINE BESYLATE 87543688647 Active KENDALL Juarez Active SYNTHROID 0.1 MG TAB 1 tablet by mouth daily LE VOTHYROXINE SODIUM 54156117879 Active Shonna Parker APRN Active GLIPIZIDE 10 MG TAB take 2 tablets twice daily GLIPIZIDE 78125667487 Active Baltazar Childers MD Active SUCRALFATE 1 GM TABS 1 four times a day to coat the stomach 2015 SUCRALFATE [id number] No Longer Active Baltazar Childers MD Active PEN NEEDLES 31G X 6 MM MISC use 1 daily INSULIN PEN NEEDLE 93820983578 Active Gato Rae MD Active TOUJEO SOLOSTAR 300 UNIT/ML SC SOPN 10 units SC daily INSULIN GLARGINE 21966314310 No Longer Active Martita Herbert ARGUETA Active LANTUS SOLOSTAR 100 UNIT/ML SC SOPN 10 units SC daily INSULIN GLARGINE 93341256627 Active KENDALL Juarez Active NAPROXEN SODIUM 220 MG ORAL TABS 1 three times a day as needed 2 NAPROXEN SODIUM 98602355665 No Longer Active Baltazar Childers MD Active ATORVASTATIN CALCIUM 20 MG ORAL TABS Take 1 tab daily ATORVASTATIN CALCIUM 23492339892 Active KENDALL Juarez Active FUROSEMIDE 40 MG TABS Take one by mouth daily FUROSEMIDE 27733250213 Active Baltazar Childers MD Active LISINOPRIL 20 MG TABS Take one by mouth daily at bedtime LISINOPRIL 09176477461 No Longer Active Baltazar Childers MD Active ONETOUCH ULTRA BLUE STRP Test twice a day GLUCO SE BLOOD 58607012340 No Longer Active Baltazar Childers MD Active TRUEPLUS LANCETS 33G MISC Test twice a day LANCET S 05659236732 Active KENDALL Juarez Active TRUEDRAW LANCING DEVICE MISC Test twice a day L ANCET DEVICES 30664917776 Active Baltazar Childers MD Active TRUETRACK TEST STRP Test twice a day GLUCOSE BLOO D 19042085189 Active KENDALL Juarez Active TRUETRACK BLOOD GLUCOSE W/DEVICE KIT Test twice a day BLOOD GLUCOSE MONITORING SUPPL 92967827776 Active Baltazar Childers MD Activ e HYDROCODONE-ACETAMINOPHEN 7.5-325 MG TABS Take 1 tab every 6-8 hour s PRN HYDROCODONE-ACETAMINOPHEN 71727436757 Active Baltazar Childers MD Active NORTRIPTYLINE HCL 50 MG CAPS 1 every night for neuropathy 4 NORTRIPTYLINE HCL 75138138563 Active Baltazar Childers MD Acti ve GABAPENTIN 300 MG CAPS 1 three times a day GABAPE NTIN 95412026261 Active Baltazar Childers MD Active GABAPENTIN 300 MG CAPS 1 po qd x 2 days, then 1 po BID x 2 d ays, then 1 po TID GABAPENTIN 66662405761 No Longer Active Baltazar silverman MD Active TRAMADOL HCL 50 MG TABS 1 twice a day as needed for pain TRAMADOL HCL 11523404583 Active Baltazar hCilders MD Active NAPROXEN 500 MG TABS 1 tablet by mouth twice daily NAPROXEN 75124914576 No Longer Active Baltazar Childers MD Active PROAIR HFA 108 (90 BASE) MCG/ACT AERS 2 puffs four times a d ay as needed ALBUTEROL SULFATE 50413337381 Active Baltazar Childers MD Active DEPO-TESTOSTERONE 200 MG/ML OIL as directed RUFINO TOSTERONE CYPIONATE 76549660061 No Longer Active Baltazar Childers MD Active LIPITOR 20 MG TABS Take one by mouth daily in evening ATORVASTATIN CALCIUM 65267643674 No Longer Active Baltazar Childers MD Activ e CRESTOR 10 MG TABS 1 by mouth every day R OSUVASTATIN CALCIUM 38235386847 No Longer Active Baltazar Childers MD Activ e PHENTERMINE HCL 37.5 MG TABS Take one by mouth daily 2 PHENTERMINE HCL 83172533647 No Longer Active Baltazar Childers MD Activ e ROBAXIN-750 750 MG TABS Take one by mouth daily ME THOCARBAMOL 58371674790 Active Baltazar Childers MD Active TIZANIDINE HCL 4 MG TABS 1 daily as needed for muscle spasm 2011 TIZANIDINE HCL 01207968748 No Longer Active Dawna Salazar RN Active [id number] 50-325-40 MG TABS 1 four time s a day as needed for heacache [id number] 31213679603 Active KENDALL Juarez Active SUMATRIPTAN SUCCINATE 100 MG TABS 1 tablet by mouth at onset of migraine as needed SUMATRIPTAN SUCCINATE 41709699979 Active KENDALL Juarez Active LORATADINE 10 MG TABS Take one by mouth daily LORATADINE 32434714568 Active Beth KENDALL Carr Active OMEPRAZOLE 20 MG CPDR Take one by mouth daily OMEPRAZOLE 20069113099 Active Baltazar Childers MD Active HYDROXYZINE HCL 25 MG TABS Take one by mouth daily HYDROXYZINE HCL 75278309578 Active Baltazar Childers MD Active ALPRAZOLAM 1 MG TABS 1 tablet by mouth daily at bedtime for restles s leg ALPRAZOLAM 12308312134 Active Baltazar Childers MD Active METFORMIN HCL 1000 MG TABS Take one by mouth twice daily METFORMIN HCL 70982667650 Active Baltazar Childers MD Active TIZANIDINE HCL 4 MG TABS 1 daily as needed for muscle spasm 2011 TIZANIDINE HCL 4 MG TABS 005201 TIZANIDINE HCL Inactiv e PHENTERMINE HCL 37.5 MG TABS Take one by mouth daily 2 PHENTERMINE HCL 37.5 MG TABS 834239 PHENTERMINE HCL Inactive CRESTOR 10 MG TABS 1 by mouth every day C RESTOR 10 MG TABS 171616 ROSUVASTATIN CALCIUM Inactive LIPITOR 20 MG TABS Take one by mouth daily in evening LIPITOR 20 MG TABS 066706 ATORVASTATIN CALCIUM Inactive DEPO-TESTOSTERONE 200 MG/ML OIL as directed 8 DEPO-TESTOSTERONE 200 MG/ML OIL 752250 TESTOSTERONE CYPIONATE Inactive NAPROXEN 500 MG TABS 1 tablet by mouth twice daily 201 07/27/22 NAPROXEN 500 MG TABS 101311 NAPROXEN Inactive GABAPENTIN 300 MG CAPS 1 po qd x 2 days, then 1 po BID x 2 d ays, then 1 po TID GABAPENTIN 300 MG CAPS 051593 GABAPENTIN Inact amie ONETOUCH ULTRA BLUE STRP Test twice a day ONETOUCH ULTRA BLUE STRP GLUCOSE BLOOD Inactive NAPROXEN SODIUM 220 MG ORAL TABS 1 three times a day as needed 2 015/08/21 NAPROXEN SODIUM 220 MG ORAL TABS 231827 NAPROXEN SODIUM Inactive TOUJEO SOLOSTAR 300 UNIT/ML SC SOPN 10 units SC daily TOUJEO SOLOSTAR 300 UNIT/ML SC SOPN INSULIN GLARGINE Inac tive SUCRALFATE 1 GM TABS 1 four times a day to coat the stomach 2015 SUCRALFATE 1 GM TABS 161242 SUCRALFATE Inactive Immunizations Vaccine Administration Date Value Standard Floyd cription pneumococcal immunization administered Pneumovax 23 [CVX33] pneumococcal polysaccharide vaccine, 23 valent Seasonal influenza vaccine, injectable, containing preservative, for > 3 years old (Afluria, FluLaval, Fluzone, Fluvirin, Fluarix, Agriflu(>= 18 yo)) Fluzone (>3 yrs.) [[id number]] Influenza, seasonal, inject able Seasonal influenza vaccine, injectable, containing preservative, for > 3 years old (Afluria, FluLaval, Fluzone, Fluvirin, Fluarix, Agriflu(>= 18 yo)) Fluzone (>3 yrs.) [[id number]] Influenza, seasonal, inject able Vital Signs Date [...] C - Chemistry sodium, serum 143 mmol/L 551-644 7500/06/19 potassium, serum 5.9 mmol/L 3.5-5.2 chloride, serum 105 mmol/L 98-107 carbon dioxide, venous blood 30.2 mmol/L 21.0-32 .0 blood glucose 189 mg/dL 65-110 calcium, serum 9.7 mg/dL 8.5-10.1 urea nitrogen, blood 37 mg/dL 7-18 creatinine, serum 2.11 mg/dL 0.55-1.30 hemoglobin A1C, blood, as % of total hemoglobin 8.2 % 4.3-6.0 Lab Report: CBC, Renal Panel - Chemistry sodium, serum 142 mmol/L 211-471 3230/08/11 potassium, serum 4.8 mmol/L 3.5-5.2 chloride, serum [...] Panel - Chemistry sodium, serum 143 mmol/L 667-315 8031/12/19 carbon dioxide, venous blood 32.5 mmol/L 21.0-32 .0 potassium, serum 4.9 mmol/L 3.5-5.2 chloride, serum 101 mmol/L 98-107 blood glucose 129 mg/dL 65-110 urea nitrogen, blood 18 mg/dL 7-18 creatinine, serum 1.79 mg/dL 0.55-1.30 alanine aminotransferase (SGPT), serum 34 U/L 12-78 aspartate aminotransferase (SGOT), serum 26 U/L 15-37 calcium, serum 8.9 mg/dL 8.5-10.1 bilirubin, serum, total 0.30 mg/dL 0.00-1.00 cholesterol, serum 214 mg/dL 850-176 8555/12/19 triglyceride, serum, fasting 351 mg/dL 30-200 HDL [...] 4.3-6.0 Encounters Code Encounter Date Provider Facility CPT-56453 Level 4 Est. Patient 14:22:31 CDT Baltazar Childers MD [facility] CPT-48719 Level 4 Est. Patient 15:44:38 CDT Shonna Parker APRN [facility] CPT-36793 Level 4 Est. Patient 11:34:17 CDT Baltazar Childers MD [facility] CPT-18676 Level 3 Est. Patient 16:40:40 CDT Baltazar Childers MD [facility] CPT-77603 Level 4 Est. Patient 10:41:24 CDT Baltazar Childers MD [facility] CPT-47774 Level 4 Est. Patient 16:01:48 CDT Baltazar Childers MD [facility] CPT-89161 Level 4 Est. Patient 16:54:07 SUBSTATION OPERATOR [employer]ATION Baltazar Childers MD [facility] CPT-11555 Level 4 Est. Patient 15:42:12 CDT Baltazar Childers MD [facility] CPT-82892 Level 4 Est. Patient 11:29:55 CDT Baltazar Childers MD [facility] CPT-80180 Level 4 Est. Patient 14:15:19 CDT Baltazar Childers MD [facility] CPT-31080 Level 4 Est. Patient 12:20:13 CDT Baltazar Childers MD [facility] CPT-61616 Level 4 Est. Patient 14:52:45 SUBSTATION OPERATOR [employer]ATION Baltazar Childers MD [facility] CPT-75982 Level 4 Est. Patient 14:18:34 SUBSTATION OPERATOR [employer] Baltazar Childers MD [facility] CPT-75358 Level 4 Est. Patient 15:18:29 CDT Baltazar Childers MD [facility] CPT-27066 Level 3 Est. Patient 12:45:34 CDT Baltazar Childers MD [facility] CPT-63000 Level 3 Est. Patient 10:10:11 CDT Baltazar Childers MD [facility] CPT-09169 Level 3 Est. Patient 14:07:50 CDT Baltazar Childers MD [facility] CPT-82887 Level 4 Est. Patient 12:26:10 SUBSTATION OPERATOR [employer]ATION Baltazar Childers MD [facility] CPT-26020 Level 4 Est. Patient 14:45:38 CDT Baltazar Childers MD [facility] CPT-35521 Level 4 New Patient 12:30:48 CDT Baltazar hinton MD [facility] Procedures Code Procedure Name Date Entry Date Standard Desc ription CPT-19041 Venipuncture Draw Fee 12:04:12 CDT CPT-44968 Lipid - LAB USE ONLY 17:39:15 SUBSTATION OPERATOR [employer] 9 CPT-98211 HGBA1C - LAB USE ONLY 17:39:15 SUBSTATION OPERATOR [employer] CPT-31503 CMP - LAB USE ONLY 17:39:14 SUBSTATION OPERATOR [employer] CPT-43051 Venipuncture Draw Fee 17:39:14 SUBSTATION OPERATOR [employer] CPT-94239 First Vx - Ix admin via ID I M or jet injects without counseling by physician 16:55:17 SUBSTATION OPERATOR [employer] CPT-76478 Fluzone Quadrivalent Intramuscular Suspe nsion 0.5 ML 16:55:17 SUBSTATION OPERATOR [employer] CPT-20367 Renal Panel - LAB USE ONLY 17:39:20 CDT 201 10/31/07 CPT-25366 CBC - LAB USE ONLY 17:39:20 CDT CPT-63310 Venipuncture Draw Fee 17:39:20 CDT CPT-31025 Venipuncture Draw Fee 14:33:30 CDT CPT-82398 Renal Panel - LAB USE ONLY 14:33:30 CDT 201 10/31/07 CPT-31084 CBC - LAB USE ONLY 14:33:29 CDT CPT-73320 Venipuncture Draw Fee 14:50:21 SUBSTATION OPERATOR [employer] CPT-61158 Immunization Single Admin 17:35:35 CDT 2014 CPT-88762 Fluzone Quadrivalent preservative free ( >=3yrs.) 17:35:35 CDT CPT-47483 Venipuncture Draw Fee 12:10:27 SUBSTATION OPERATOR [employer] CPT-24824 Fluzone Quadrivalent Intramuscular Suspe nsion 0.5 ML 10:49:13 CDT CPT-63076 First Vx Component - Ix admi n via ID IM or jet inj without physician counseling 15:17:19 SUBSTATION OPERATOR [employer] CPT-74638 Pneumovax 23 15:17:19 SUBSTATION OPERATOR [employer] CPT-47523 Pneumovax 14:52:45 SUBSTATION OPERATOR [employer] CPT-39655 Venipuncture Draw Fee 14:06:30 SUBSTATION OPERATOR [employer] CPT-000 Give Appropriate Flu Vaccine 14:18:34 SUBSTATION OPERATOR [employer] 2 CPT-81631 Administration single or combination vac cine inc oral 14:46:00 SUBSTATION OPERATOR [employer] CPT-12195 Influenza split virus > age 3 14:46:00 SUBSTATION OPERATOR [employer] CPT-OV Office Visit 19:13:16 CDT CPT-44488 Zostavax 18:41:56 CDT CPT-87856 Administration single or combination vac cine inc oral 12:56:39 CDT CPT-81060 Zoster Vaccine (Zostavax) 12:56:39 CDT 2012 CPT-05511 Venipuncture Draw Fee 10:58:57 CDT CPT-80756 Sono pelvis non OB uterus ovaries cervix 17:45:04 CDT CPT-76547 Sono retroperitoneal complete kidneys an d bladder 17:14:36 CDT CPT-OV Office Visit 14:59:38 SUBSTATION OPERATOR [employer] CPT-J1070 Depo Testosterone 100 mg 14:50:13 CDT 03/05 CPT-99175 Abx/Therapy Injection 14:50:13 CDT CPT-56346 Administration single or combination vac cine inc oral 14:34:43 CDT CPT-56450 Influenza split virus > age 3 14:34:43 CDT CPT-J1070 Depo Testosterone 100 mg 17:37:13 CDT 01/11 CPT-66775 Abx/Therapy Injection 17:37:13 CDT CPT-90370 Venipuncture Draw Fee 16:30:13 CDT CPT-90377 Venipuncture Draw Fee 16:29:43 CDT CPT-J1070 Depo Testosterone 100 mg 14:45:38 CDT 01/11
--- OUTSIDE RECORDS SUMMARY | 2019-10-27 13:21 | XMS REPORT | Clinical Summary ---
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 Benign neoplasm of colon PERIPHERAL NEUROPATHY [...] tablet by mouth daily LE VOTHYROXINE SODIUM 33528846362 Active Carina Tucker LPN Active GLIPIZIDE 10 MG TAB take 2 tablets twice daily GLIPIZIDE 84867707954 Active Carina Tucker LPN Active SUCRALFATE 1 GM TABS 1 four times a day to coat the stomach 2015 SUCRALFATE 64859050790 No Longer Active Baltazar Childers MD Active PEN NEEDLES 31G X 6 MM MISC use 1 daily INSULIN PEN NEEDLE 83417831547 Active Bella Suarez BRASSWIND INSTRUMENT REPAIRER Active TOURINKUO SOLOSTAR 300 UNIT/ML SC SOPN 10 units SC daily INSULIN GLARGINE 83796752932 No Longer Active Martita Godinez KENDALL Active LANTUS SOLOSTAR 100 UNIT/ML SC SOPN 10 units SC daily INSULIN GLARGINE 58092917771 Active Baltazar Childers MD Active NAPROXEN SODIUM 220 MG ORAL TABS 1 three times a day as needed 2 NAPROXEN SODIUM 13507792080 No Longer Active Baltazar Childers MD Active ATORVASTATIN CALCIUM 20 MG ORAL TABS Take 1 tab daily ATORVASTATIN CALCIUM 55111537341 Active Baltazar Childers MD Active FUROSEMIDE 40 MG TABS Take one by mouth daily FUROSEMIDE 53470034447 Active Baltazar Childers MD Active LISINOPRIL 20 MG TABS Take one by mouth daily at bedtime LISINOPRIL 34598437494 Active KENDALL Juarez Active ONETOUCH ULTRA BLUE STRP Test twice a day GLUCO SE BLOOD 42404067709 No Longer Active Baltazar Childers MD Active TRUEPLUS LANCETS 33G MISC Test twice a day LANCET S 56098889579 Active KENDALL Juarez Active TRUEDRAW LANCING DEVICE MISC Test twice a day L ANCET DEVICES 23322238584 Active Baltazar Childers MD Active TRUETRACK TEST STRP Test twice a day GLUCOSE BLOO D 88025321830 Active KENDALL Juarez Active TRUETRACK BLOOD GLUCOSE W/DEVICE KIT Test twice a day BLOOD GLUCOSE MONITORING SUPPL 49445569444 Active Baltazar Childers MD Activ e HYDROCODONE-ACETAMINOPHEN 7.5-325 MG TABS Take 1 tab every 6-8 hour s PRN HYDROCODONE-ACETAMINOPHEN 14494160100 Active Shonna Parker APRN Active NORTRIPTYLINE HCL 50 MG CAPS 1 every night for neuropathy 4 NORTRIPTYLINE HCL 49154888633 Active Baltazar Childers MD Acti ve GABAPENTIN 300 MG CAPS 1 three times a day GABAPE NTIN 35802531696 Active Baltazar Childers MD Active GABAPENTIN 300 MG CAPS 1 po qd x 2 days, then 1 po BID x 2 d ays, then 1 po TID GABAPENTIN 24599890633 No Longer Active Baltazar silverman MD Active TRAMADOL HCL 50 MG TABS 1 twice a day as needed for pain TRAMADOL HCL 12657778831 Active Shonna Parker APRN Active NAPROXEN 500 MG TABS 1 tablet by mouth twice daily NAPROXEN 20928995958 No Longer Active Baltazar Childers MD Active PROAIR HFA 108 (90 BASE) MCG/ACT AERS 2 puffs four times a d ay as needed ALBUTEROL SULFATE 11426730776 Active KENDALL Juarez Active DEPO-TESTOSTERONE 200 MG/ML OIL as directed RUFINO TOSTERONE CYPIONATE 11610662670 No Longer Active Baltazar Childers MD Active LIPITOR 20 MG TABS Take one by mouth daily in evening ATORVASTATIN CALCIUM 61365036788 No Longer Active Baltazar Childers MD Activ e CRESTOR 10 MG TABS 1 by mouth every day R OSUVASTATIN CALCIUM 44917973788 No Longer Active Baltazar Childers MD Activ e PHENTERMINE HCL 37.5 MG TABS Take one by mouth daily 2 PHENTERMINE HCL 89337460524 No Longer Active Baltazar Childers MD Activ e ROBAXIN-750 750 MG TABS Take one by mouth daily ME THOCARBAMOL 29965175466 Active Baltazar Childers MD Active TIZANIDINE HCL 4 MG TABS 1 daily as needed for muscle spasm 2011 TIZANIDINE HCL 90255436181 No Longer Active Dawna Salazar RN Active [id number] 50-325-40 MG TABS 1 four time s a day as needed for heacache [id number] 53490421678 Active Shonna Parker APRN Active SUMATRIPTAN SUCCINATE 100 MG TABS 1 tablet by mouth at onset of migraine as needed SUMATRIPTAN SUCCINATE 82337520169 Active Shonna Villaseñor er BRASSWIND INSTRUMENT REPAIRER Active LORATADINE 10 MG TABS Take one by mouth daily LORATADINE 24668393955 Active Baltazar Childers MD Active OMEPRAZOLE 20 MG CPDR Take one by mouth daily OMEPRAZOLE 35723464609 Active KENDALL Juarez Active HYDROXYZINE HCL 25 MG TABS Take one by mouth daily HYDROXYZINE HCL 16424263220 Active Baltazar Childers MD Active ALPRAZOLAM 1 MG TABS 1 tablet by mouth daily at bedtime for restles s leg ALPRAZOLAM 04441589826 Active Baltazar Childers MD Active METFORMIN HCL 1000 MG TABS Take one by mouth twice daily METFORMIN HCL 30176581205 Active Baltazar Chidlers MD Active TIZANIDINE HCL 4 MG TABS 1 daily as needed for muscle spasm 2011 TIZANIDINE HCL 4 MG TABS 410916 TIZANIDINE HCL Inactiv e PHENTERMINE HCL 37.5 MG TABS Take one by mouth daily 2 PHENTERMINE HCL 37.5 MG TABS 591306 PHENTERMINE HCL Inactive CRESTOR 10 MG TABS 1 by mouth every day C RESTOR 10 MG TABS 278454 ROSUVASTATIN CALCIUM Inactive LIPITOR 20 MG TABS Take one by mouth daily in evening LIPITOR 20 MG TABS 283664 ATORVASTATIN CALCIUM Inactive DEPO-TESTOSTERONE 200 MG/ML OIL as directed 8 DEPO-TESTOSTERONE 200 MG/ML OIL 926854 TESTOSTERONE CYPIONATE Inactive NAPROXEN 500 MG TABS 1 tablet by mouth twice daily 201 07/27/22 NAPROXEN 500 MG TABS 948080 NAPROXEN Inactive GABAPENTIN 300 MG CAPS 1 po qd x 2 days, then 1 po BID x 2 d ays, then 1 po TID GABAPENTIN 300 MG CAPS 880860 GABAPENTIN Inact amie ONETOUCH ULTRA BLUE STRP Test twice a day ONETOUCH ULTRA BLUE STRP GLUCOSE BLOOD Inactive NAPROXEN SODIUM 220 MG ORAL TABS 1 three times a day as needed 2 NAPROXEN SODIUM 220 MG ORAL TABS 372874 NAPROXEN SODIUM Inactive TOUJEO SOLOSTAR 300 UNIT/ML SC SOPN 10 units SC daily TOUJEO SOLOSTAR 300 UNIT/ML SC SOPN INSULIN GLARGINE Inac tive SUCRALFATE 1 GM TABS 1 four times a day to coat the stomach 2015 SUCRALFATE 1 GM TABS 488899 SUCRALFATE Inactive Immunizations Vaccine Administration Date Value Standard Floyd cription pneumococcal immunization administered Pneumovax 23 [CVX33] pneumococcal polysaccharide vaccine, 23 valent Seasonal influenza vaccine, injectable, containing preservative, for > 3 years old (Afluria, FluLaval, Fluzone, Fluvirin, Fluarix, Agriflu(>= 18 yo)) Fluzone (>3 yrs.) [IVB701] Influenza, seasonal, inject able Seasonal influenza vaccine, injectable, containing preservative, for > 3 years old (Afluria, FluLaval, Fluzone, Fluvirin, Fluarix, Agriflu(>= 18 yo)) Fluzone (>3 yrs.) [[id number]] Influenza, seasonal, inject able Vital Signs Date [...] C - Chemistry sodium, serum 139 mmol/L 397-017 9283/07/07 potassium, serum 4.5 mmol/L 3.5-5.2 chloride, serum [...] Panel - Chemistry sodium, serum 143 mmol/L 026-322 2125/12/19 carbon dioxide, venous blood 32.5 mmol/L 21.0-32 .0 potassium, serum 4.9 mmol/L 3.5-5.2 chloride, serum 101 mmol/L 98-107 blood glucose 129 mg/dL 65-110 urea nitrogen, blood 18 mg/dL 7-18 creatinine, serum 1.79 mg/dL 0.55-1.30 alanine aminotransferase (SGPT), serum 34 U/L 12-78 aspartate aminotransferase (SGOT), serum 26 U/L 15-37 calcium, serum 8.9 mg/dL 8.5-10.1 bilirubin, serum, total 0.30 mg/dL 0.00-1.00 cholesterol, serum 214 mg/dL 608-522 3608/12/19 triglyceride, serum, fasting 351 mg/dL 30-200 HDL [...] Panel - Chemistry sodium, serum 141 mmol/L 029-948 4299/08/08 potassium, serum 4.9 mmol/L 3.5-5.2 chloride, serum 101 mmol/L 98-107 carbon dioxide, venous blood 34.1 mmol/L 21.0-32 .0 creatinine, serum 1.98 mg/dL 0.55-1.30 blood glucose 193 mg/dL 65-110 urea nitrogen, blood 30 mg/dL 7-18 calcium, serum 9.8 mg/dL 8.5-10.1 Encounters Code Encounter Date Provider Facility CPT-37351 Level 4 Est. Patient 15:44:38 CDT Shonna Parker APRN [facility] CPT-91003 Level 4 Est. Patient 11:34:17 CDT Baltazar Childers MD [facility] CPT-23779 Level 3 Est. Patient 16:40:40 CDT Baltazar Childers MD [facility] CPT-15462 Level 4 Est. Patient 10:41:24 CDT Baltazar Childers MD [facility]-51406 Level 4 Est. Patient 16:01:48 CDT Baltazar Childers MD [facility]-93496 Level 4 Est. 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-29150 Level 4 Est. Patient 15:42:12 CDT Baltazar Childers MD [facility] CPT-37703 Level 4 Est. Patient 11:29:55 CDT Baltazar Childers MD [facility]-11018 Level 4 Est. Patient 14:15:19 CDT Baltazar Childers MD [facility]-24121 Level 4 Est. Patient 12:20:13 CDT Baltazar Childers MD [facility]-80546 Level 4 Est. Patient 14:52:45 HIGH SCHOOL HISTORY TEACHER Baltazar Childers MD [facility]-61806 Level 4 Est. Patient 14:18:34 HIGH SCHOOL HISTORY TEACHER Baltazar Childers MD [facility]-31828 Level 4 Est. Patient 15:18:29 CDT Baltazar Childers MD [facility]-05534 Level 3 Est. Patient 12:45:34 CDT Baltazar Childers MD [facility]-80236 Level 3 Est. Patient 10:10:11 CDT Baltazar Childers MD [facility]-39980 Level 3 Est. Patient 14:07:50 CDT Baltazar Childers MD [facility]-72634 Level 4 Est. Patient 12:26:10 HIGH SCHOOL HISTORY TEACHER Baltazar Childers MD [facility]-84457 Level 4 Est. Patient 14:45:38 CDT Baltazar Childers MD [facility] CPT-33598 Level 4 New Patient 12:30:48 CDT Baltazar hinton MD [facility] Procedures Code Procedure Name Date Entry Date Standard Desc ription CPT-77918 Lipid - LAB USE ONLY 17:39:15 HIGH SCHOOL HISTORY TEACHER 9 CPT-41711 HGBA1C - LAB USE ONLY 17:39:15 H[employer] SCHOOL HISTORY TEACHER CPT-25319 CMP - LAB USE ONLY 17:39:14 H[employer] SCHOOL HISTORY TEACHER CPT-88022 Venipuncture Draw Fee 17:39:14 HIGH SCHO[employer] HISTORY TEACHER CPT-33276 First Vx - Ix admin via ID I M or jet injects without counseling by physician 16:55:17 HIGH SCHOOL HISTORY TEACHER CPT-56070 Fluzone Quadrivalent Intramuscular Suspe nsion 0.5 ML 16:55:17 HIGH SCHOOL HISTORY TEACHER CPT-36496 Renal Panel - LAB USE ONLY 17:39:20 CDT 201 10/31/07 CPT-84020 CBC - LAB USE ONLY 17:39:20 CDT CPT-20366 Venipuncture Draw Fee 17:39:20 CDT CPT-20600 Venipuncture Draw Fee 14:33:30 CDT CPT-51615 Renal Panel - LAB USE ONLY 14:33:30 CDT 201 10/31/07 CPT-61170 CBC - LAB USE ONLY 14:33:29 CDT CPT-98665 Venipuncture Draw Fee 14:50:21 HIGH SCHOOL HISTORY TEACHER CPT-50347 Immunization Single Admin 17:35:35 CDT 2014 CPT-17714 Fluzone Quadrivalent preservative free ( >=3yrs.) 17:35:35 CDT CPT-25393 Venipuncture Draw Fee 12:10:27 HIGH SCHOOL HISTORY TEACHER CPT-34343 Fluzone Quadrivalent Intramuscular Suspe nsion 0.5 ML 10:49:13 CDT CPT-00865 First Vx Component - Ix admi n via ID IM or jet inj without physician counseling 15:17:19 HIGH SCHOOL HISTORY TEACHER CPT-73847 Pneumovax 23 15:17:19 HIGH SCHOOL HISTORY TEACHER CPT-60910 Pneumovax 14:52:45 HIGH SCHOOL HISTORY TEACHER CPT-28080 Venipuncture Draw Fee 14:06:30 HIGH SCHOOL HISTORY TEACHER CPT-000 Give Appropriate Flu Vaccine 14:18:34 HIGH SCHOOL HISTORY TEACHER 2 CPT-81220 Administration single or combination vac cine inc oral 14:46:00 HIGH SCHOOL HISTORY TEACHER CPT-97865 Influenza split virus > age 3 14:46:00 HIGH SCHOOL HISTORY TEACHER CPT-OV Office Visit 19:13:16 CDT CPT-83808 Zostavax 18:41:56 CDT CPT-53773 Administration single or combination vac cine inc oral 12:56:39 CDT CPT-91287 Zoster Vaccine (Zostavax) 12:56:39 CDT 2012 CPT-09674 Venipuncture Draw Fee 10:58:57 CDT CPT-53308 Sono pelvis non OB uterus ovaries cervix 17:45:04 CDT CPT-30500 Sono retroperitoneal complete kidneys an d bladder 17:14:36 CDT CPT-OV Office Visit 14:59:38 HIGH SCHOOL HISTORY TEACHER CPT-J1070 Depo Testosterone 100 mg 14:50:13 CDT 03/05 CPT-29233 Abx/Therapy Injection 14:50:13 CDT CPT-55042 Administration single or combination vac cine inc oral 14:34:43 CDT CPT-71450 Influenza split virus > age 3 14:34:43 CDT CPT-J1070 Depo Testosterone 100 mg 17:37:13 CDT 01/11 CPT-35588 Abx/Therapy Injection 17:37:13 CDT CPT-58561 Venipuncture Draw Fee 16:30:13 CDT CPT-75936 Venipuncture Draw Fee 16:29:43 CDT CPT-J1070 Depo Testosterone 100 mg 14:45:38 CDT 01/11
--- OUTSIDE RECORDS SUMMARY | 2019-10-27 13:22 | XMS REPORT | Clinical Summary ---
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 Benign neoplasm of colon PERIPHERAL NEUROPATHY [...] a day as needed 2 NAPROXEN SODIUM 64121876615 No Longer Active Baltazar Childers MD Active ATORVASTATIN CALCIUM 20 MG ORAL TABS Take 1 tab daily ATORVASTATIN CALCIUM 40235588157 Active KENDALL Juarez Active FUROSEMIDE 40 MG TABS Take one by mouth daily FUROSEMIDE 64822993300 Active Baltazar hCilders MD Active LISINOPRIL 20 MG TABS Take one by mouth daily at bedtime LISINOPRIL 00482204756 Active KENDALL Juarez Active ONETOUCH ULTRA BLUE STRP Test twice a day GLUCO SE BLOOD 42576479647 No Longer Active Baltazar Childers MD Active TRUEPLUS LANCETS 33G MISC Test twice a day LANCET S 82015117847 Active KENDALL Juarez Active TRUEDRAW LANCING DEVICE MISC Test twice a day L ANCET DEVICES 66328450490 Active Baltazar Childers MD Active TRUETRACK TEST STRP Test twice a day GLUCOSE BLOO D 67264055662 Active KENDALL Juarez Active TRUETRACK BLOOD GLUCOSE W/DEVICE KIT Test twice a day BLOOD GLUCOSE MONITORING SUPPL 74369138145 Active Baltazar Childers MD Activ e HYDROCODONE-ACETAMINOPHEN 7.5-325 MG TABS Take 1 tab every 6-8 hour s PRN HYDROCODONE-ACETAMINOPHEN 90085607367 Active Baltazar Childers MD Active NORTRIPTYLINE HCL 50 MG CAPS 1 every night for neuropathy 4 NORTRIPTYLINE HCL 04593800259 Active Baltazar Childers MD Acti ve GABAPENTIN 300 MG CAPS 1 three times a day GABAPE NTIN 50626697681 Active KENDALL Juarez Active GABAPENTIN 300 MG CAPS 1 po qd x 2 days, then 1 po BID x 2 d ays, then 1 po TID GABAPENTIN 72025719410 No Longer Active Baltazar silverman MD Active TRAMADOL HCL 50 MG TABS 1 twice a day as needed for pain TRAMADOL HCL 78551410784 Active Baltazar Childers MD Active NAPROXEN 500 MG TABS 1 tablet by mouth twice daily NAPROXEN 74692836873 No Longer Active Baltazar Childers MD Active PROAIR HFA 108 (90 BASE) MCG/ACT AERS 2 puffs four times a d ay as needed ALBUTEROL SULFATE 28906221990 Active KENDALL Juarez Active DEPO-TESTOSTERONE 200 MG/ML OIL as directed RUFINO TOSTERONE CYPIONATE 31753001861 No Longer Active Baltazar Childers MD Active LIPITOR 20 MG TABS Take one by mouth daily in evening ATORVASTATIN CALCIUM 71833474626 No Longer Active Baltazar Childers MD Activ e CRESTOR 10 MG TABS 1 by mouth every day R OSUVASTATIN CALCIUM 02610241007 No Longer Active Baltazar Childers MD Activ e PHENTERMINE HCL 37.5 MG TABS Take one by mouth daily 2 PHENTERMINE HCL 04248111247 No Longer Active Baltazar Childers MD Activ e ROBAXIN-750 750 MG TABS Take one by mouth daily ME THOCARBAMOL 35284728783 Active Baltazar Childers MD Active TIZANIDINE HCL 4 MG TABS 1 daily as needed for muscle spasm 2011 TIZANIDINE HCL 99768576999 No Longer Active Dawna Salazar RN Active [id number]-[id number] 50-325-40 MG TABS 1 four time s a day as needed for heacache LADUABMSFJ-[id number]-[id number] 43644018341 Active KENDALL Juarez Active SUMATRIPTAN SUCCINATE 100 MG TABS 1 tablet by mouth at onset of migraine as needed SUMATRIPTAN SUCCINATE 83066604294 Active KENDALL Juarez Active LORATADINE 10 MG TABS Take one by mouth daily LORATADINE 15185638147 Active Baltazar Childers MD Active OMEPRAZOLE 20 MG CPDR Take one by mouth daily OMEPRAZOLE 15651132697 Active Argentina Lyons Active HYDROXYZINE HCL 25 MG TABS Take one by mouth daily HYDROXYZINE HCL 92685887002 Active Baltazar Childers MD Active GLIPIZIDE 10 MG TABS 1 tablet by mouth twice daily GLIPIZIDE 94312356325 Active KENDALL Juarez Active ALPRAZOLAM 1 MG TABS 1 tablet by mouth daily at bedtime for restles s leg ALPRAZOLAM 05654351670 Active Baltazar Childers MD Active METFORMIN HCL 1000 MG TABS Take one by mouth twice daily METFORMIN HCL 87637694089 Active Baltazar Childers MD Active TIZANIDINE HCL 4 MG TABS 1 daily as needed for muscle spasm 2011 TIZANIDINE HCL 4 MG TABS 005503 TIZANIDINE HCL Inactiv e PHENTERMINE HCL 37.5 MG TABS Take one by mouth daily 2 PHENTERMINE HCL 37.5 MG TABS 856361 PHENTERMINE HCL Inactive CRESTOR 10 MG TABS 1 by mouth every day C RESTOR 10 MG TABS ROSUVASTATIN CALCIUM Inactive LIPITOR 20 MG TABS Take one by mouth daily in evening LIPITOR 20 MG TABS 839853 ATORVASTATIN CALCIUM Inactive DEPO-TESTOSTERONE 200 MG/ML OIL as directed 8 DEPO-TESTOSTERONE 200 MG/ML OIL 944686 TESTOSTERONE CYPIONATE Inactive NAPROXEN 500 MG TABS 1 tablet by mouth twice daily 201 07/27/22 NAPROXEN 500 MG TABS 087382 NAPROXEN Inactive GABAPENTIN 300 MG CAPS 1 po qd x 2 days, then 1 po BID x 2 d ays, then 1 po TID GABAPENTIN 300 MG CAPS 925071 GABAPENTIN Inact amie ONETOUCH ULTRA BLUE STRP Test twice a day ONETOUCH ULTRA BLUE STRP GLUCOSE BLOOD Inactive NAPROXEN SODIUM 220 MG ORAL TABS 1 three times a day as needed 2 NAPROXEN SODIUM 220 MG ORAL TABS 787441 NAPROXEN SODIUM Inactive Immunizations Vaccine Administration Date Value Standard Floyd cription pneumococcal immunization administered Pneumovax 23 [CVX33] pneumococcal polysaccharide vaccine, 23 valent Seasonal influenza vaccine, injectable, containing preservative, for > 3 years old (Afluria, FluLaval, Fluzone, Fluvirin, Fluarix, Agriflu(>= 18 yo)) Fluzone (>3 yrs.) [QGW590] Influenza, seasonal, inject able Seasonal influenza vaccine, injectable, containing preservative, for > 3 years old (Afluria, FluLaval, Fluzone, Fluvirin, Fluarix, Agriflu(>= 18 yo)) Fluzone (>3 yrs.) [QKV654] Influenza, seasonal, inject able Vital Signs Date [...] 7.9 % 4.3-6.0 sodium, serum 139 mmol/L 844-877 3654/02/04 potassium, serum 5.4 mmol/L 3.5-5.2 chloride, serum [...] Panel - Chemistry sodium, serum 138 mmol/L 064-979 4982/11/23 carbon dioxide, venous blood 32.4 mmol/L 21.0-32 .0 potassium, serum 5.7 mmol/L 3.5-5.2 chloride, serum 98 mmol/L 98-107 blood glucose 136 mg/dL 65-110 urea nitrogen, blood 18 mg/dL 7-18 creatinine, serum 1.71 mg/dL 0.55-1.30 alanine aminotransferase (SGPT), serum 71 U/L 12-78 aspartate aminotransferase (SGOT), serum 34 U/L 15-37 calcium, serum 9.4 mg/dL 8.5-10.1 bilirubin, serum, total 0.40 mg/dL 0.00-1.00 cholesterol, serum 405 mg/dL 676-767 9341/11/23 triglyceride, serum, fasting 709 mg/dL 30-200 HDL [...] mg/dL Encounters Code Encounter Date Provider Facility CPT-43198 Level 4 Est. Patient 16:01:48 CDT Baltazar Childers MD [facility] CPT-11834 Level 4 Est. Patient 16:54:07 STAFF FIELD ENGINEER Baltazar Childers MD [facility] CPT-67146 Level 4 Est. Patient 15:42:12 CDT Baltazar Childers MD [facility] CPT-51147 Level 4 Est. Patient 11:29:55 CDT Baltazar Childers MD [facility] CPT-52120 Level 4 Est. Patient 14:15:19 CDT Baltazar Childers MD [facility] CPT-27236 Level 4 Est. Patient 12:20:13 CDT Baltazar Childers MD [facility] CPT-24107 Level 4 Est. Patient 14:52:45 STAFF FIELD ENGINEER Baltazar Childers MD [facility] CPT-58638 Level 4 Est. Patient 14:18:34 STAFF FIELD ENGINEER Baltazar Childers MD [facility] CPT-76825 Level 4 Est. Patient 15:18:29 CDT Baltazar Childers MD [facility] CPT-95203 Level 3 Est. Patient 12:45:34 CDT Baltazar Childers MD [facility] CPT-02024 Level 3 Est. Patient 10:10:11 CDT Baltazar Childers MD [facility] CPT-32268 Level 3 Est. Patient 14:07:50 CDT Baltazar Childers MD [facility] CPT-64746 Level 4 Est. Patient 12:26:10 STAFF FIELD ENGINEER Baltazar Childers MD [facility] CPT-86047 Level 4 Est. Patient 14:45:38 CDT Baltazar Childers MD [facility] CPT-63386 Level 4 New Patient 12:30:48 CDT Baltazar hinton MD [facility] Procedures Code Procedure Name Date Entry Date Standard Desc ription CPT-21784 Venipuncture Draw Fee 14:50:21 STAFF FIELD ENGINEER CPT-49777 Immunization Single Admin 17:35:35 CDT 2014 CPT-55474 Fluzone Quadrivalent preservative free ( >=3yrs.) 17:35:35 CDT CPT-01946 Venipuncture Draw Fee 12:10:27 STAFF FIELD ENGINEER CPT-40367 Fluzone Quadrivalent Intramuscular Suspe nsion 0.5 ML 10:49:13 CDT CPT-69604 First Vx Component - Ix admi n via ID IM or jet inj without physician counseling 15:17:19 STAFF FIELD ENGINEER CPT-84770 Pneumovax 15:17:19 STAFF FIELD ENGINEER CPT-84646 Pneumovax 14:52:45 STAFF FIELD ENGINEER CPT-12152 Venipuncture Draw Fee 14:06:30 STAFF FIELD ENGINEER CPT-000 Give Appropriate Flu Vaccine 14:18:34 STAFF FIELD ENGINEER 2 CPT-25972 Administration single or combination vac cine inc oral 14:46:00 STAFF FIELD ENGINEER CPT-89779 Influenza split virus > age 3 14:46:00 STAFF FIELD ENGINEER CPT-OV Office Visit 19:13:16 CDT CPT-70011 Zostavax 18:41:56 CDT CPT-18802 Administration single or combination vac cine inc oral 12:56:39 CDT CPT-14558 Zoster Vaccine (Zostavax) 12:56:39 CDT 2012 CPT-61397 Venipuncture Draw Fee 10:58:57 CDT CPT-82809 Sono pelvis non OB uterus ovaries cervix 17:45:04 CDT CPT-61852 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
--- OUTSIDE RECORDS SUMMARY | 2019-10-27 13:22 | XMS REPORT | Clinical Summary ---
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 Benign neoplasm of colon PERIPHERAL NEUROPATHY 356.9 [...] ronary atherosclerosis of unspecified type of vessel, [place] or graft OTH NONSPC ABN FINDNG RAD&OTH [...] TABS Take 1 tab daily ATORVASTATIN CALCIUM 68704738850 Active Kelly Iraheta LPN Active NAPROXEN SODIUM 220 MG ORAL TABS 1 three times a day as needed 2014 NAPROXEN SODIUM 08351522396 Active Baltazar Childers MD Active FUROSEMIDE 40 MG TABS Take one by mouth daily FUROSEMIDE 76237613975 Active Baltazar Childers MD Active LISINOPRIL 20 MG TABS Take one by mouth daily at bedtime LISINOPRIL 34836574634 Active Baltazar Childers MD Active [employer]TOUCH ULTRA BLUE STRP Test twice a day GLUCO SE BLOOD 51998195481 No Longer Active Baltazar Childers MD Active TRUEPLUS LANCETS 33G MISC Test twice a day LANCET S 95529903131 Active Baltazar Childers MD Active TRUEDRAW LANCING DEVICE MISC Test twice a day L ANCET DEVICES 96709854579 Active Baltazar Childers MD Active TRUETRACK TEST STRP Test twice a day GLUCOSE BLOO D 43235757401 Active Baltazar Childers MD Active TRUETRACK BLOOD GLUCOSE W/DEVICE KIT Test twice a day BLOOD GLUCOSE MONITORING SUPPL 27999298555 Active Baltazar Childers MD Activ e HYDROCODONE-ACETAMINOPHEN 7.5-325 MG TABS Take 1 tab every 6-8 hour s PRN HYDROCODONE-ACETAMINOPHEN 57759218689 Active Kelly Iraheta LPN Active NORTRIPTYLINE HCL 50 MG CAPS 1 every night for neuropathy 4 NORTRIPTYLINE HCL 32670403381 Active Baltazar Childers MD Acti ve GABAPENTIN 300 MG CAPS 1 three times a day GABAPE NTIN 09015699368 Active Kelly Iraheta LPN Active GABAPENTIN 300 MG CAPS 1 po qd x 2 days, then 1 po BID x 2 d ays, then 1 po TID GABAPENTIN 86708688189 No Longer Active Baltazar silverman MD Active TRAMADOL HCL 50 MG TABS 1 twice a day as needed for pain TRAMADOL HCL 17233390703 Active Kelly Iraheta LPN Active NAPROXEN 500 MG TABS 1 tablet by mouth twice daily NAPROXEN 99286693345 No Longer Active Baltazar Childers MD Active PROAIR HFA 108 (90 BASE) MCG/ACT AERS 2 puffs four times a d ay as needed ALBUTEROL SULFATE 01703092722 Active Baltazar Childers MD Active DEPO-TESTOSTERONE 200 MG/ML OIL as directed RUFINO TOSTERONE CYPIONATE 12489134155 No Longer Active Baltazar Childers MD Active LIPITOR 20 MG TABS Take one by mouth daily in evening ATORVASTATIN CALCIUM 37264337620 No Longer Active Baltazar Childers MD Activ e CRESTOR 10 MG TABS 1 by mouth every day R OSUVASTATIN CALCIUM 83155421747 No Longer Active Baltazar Childers MD Activ e PHENTERMINE HCL 37.5 MG TABS Take one by mouth daily 2 PHENTERMINE HCL 19441746019 No Longer Active Baltazar Childers MD Activ e ROBAXIN-750 750 MG TABS Take one by mouth daily ME THOCARBAMOL 52895758336 Active Radha Person APRN Active TIZANIDINE HCL 4 MG TABS 1 daily as needed for muscle spasm 2011 TIZANIDINE HCL 36974179791 No Longer Active Dawna Salazar RN Active [id number]-RKFL-SCMEAROL 50-325-40 MG TABS 1 four time s a day as needed for heacache [id number] 97377413717 Active Baltazar Childers MD Active SUMATRIPTAN SUCCINATE 100 MG TABS 1 tablet by mouth at onset of migraine as needed SUMATRIPTAN SUCCINATE 62932582884 Active Melody Paez Active LORATADINE 10 MG TABS Take one by mouth daily LORATADINE 95947463763 Active Melody Paez Active OMEPRAZOLE 20 MG CPDR Take one by mouth daily OMEPRAZOLE 75596536739 Active Baltazar Childers MD Active HYDROXYZINE HCL 25 MG TABS Take one by mouth daily HYDROXYZINE HCL 16014475036 Active Dawna Lew Active GLIPIZIDE 10 MG TABS 1 tablet by mouth twice daily GLIPIZIDE 88599332070 Active Baltazar Childers MD Active ALPRAZOLAM 1 MG TABS 1 tablet by mouth daily at bedtime for restles s leg ALPRAZOLAM 15130911048 Active Baltazar Childers MD Active METFORMIN HCL 1000 MG TABS Take one by mouth twice daily METFORMIN HCL 54724188890 Active Baltazar Childers MD Active TIZANIDINE HCL 4 MG TABS 1 daily as needed for muscle spasm 2011 TIZANIDINE HCL 4 MG TABS 194127 TIZANIDINE HCL Inactiv e PHENTERMINE HCL 37.5 MG TABS Take one by mouth daily 2 PHENTERMINE HCL 37.5 MG TABS 215381 PHENTERMINE HCL Inactive CRESTOR 10 MG TABS 1 by mouth every day C RESTOR 10 MG TABS ROSUVASTATIN CALCIUM Inactive LIPITOR 20 MG TABS Take one by mouth daily in evening LIPITOR 20 MG TABS 204409 ATORVASTATIN CALCIUM Inactive DEPO-TESTOSTERONE 200 MG/ML OIL as directed 8 DEPO-TESTOSTERONE 200 MG/ML OIL 673620 TESTOSTERONE CYPIONATE Inactive NAPROXEN 500 MG TABS 1 tablet by mouth twice daily 201 07/27/22 NAPROXEN 500 MG TABS 710568 NAPROXEN Inactive GABAPENTIN 300 MG CAPS 1 po qd x 2 days, then 1 po BID x 2 d ays, then 1 po TID GABAPENTIN 300 MG CAPS 990068 GABAPENTIN Inact amie ONETOUCH ULTRA BLUE STRP Test twice a day ONETOUCH ULTRA BLUE STRP GLUCOSE BLOOD Inactive Immunizations Vaccine Administration Date Value Standard Floyd cription pneumococcal immunization administered Pneumovax 23 [CVX33] pneumococcal polysaccharide vaccine, 23 valent Seasonal influenza vaccine, injectable, containing preservative, for > 3 years old (Afluria, FluLaval, Fluzone, Fluvirin, Fluarix, Agriflu(>= 18 yo)) Fluzone (>3 yrs.) [[id number]] Influenza, seasonal, inject able Seasonal influenza vaccine, injectable, containing preservative, for > 3 years old (Afluria, FluLaval, Fluzone, Fluvirin, Fluarix, Agriflu(>= 18 yo)) Fluzone (>3 yrs.) [[id number]] Influenza, seasonal, inject able Vital Signs Date [...] - Chem istry sodium, serum 140 mmol/L 235-060 6210/05/05 potassium, serum 4.9 mmol/L 3.5-5.2 chloride, serum 99 mmol/L 98-107 carbon dioxide, venous blood 34.3 mmol/L 21.0-32 .0 blood glucose 132 mg/dL 65-110 calcium, serum 10.1 mg/dL 8.5-10.1 urea nitrogen, blood 23 mg/dL 7-18 creatinine, serum 2.00 mg/dL 0.60-1.30 Lab Report: CBC, Renal Panel - Chemistry sodium, serum 139 mmol/L 630-472 6240/01/20 potassium, serum 5.3 mmol/L 3.5-5.2 chloride, serum [...] Panel - Chemistry sodium, serum 138 mmol/L 678-926 6643/11/23 carbon dioxide, venous blood 32.4 mmol/L 21.0-32 .0 potassium, serum 5.7 mmol/L 3.5-5.2 chloride, serum 98 mmol/L 98-107 blood glucose 136 mg/dL 65-110 urea nitrogen, blood 18 mg/dL 7-18 creatinine, serum 1.71 mg/dL 0.55-1.30 alanine aminotransferase (SGPT), serum 71 U/L 12-78 aspartate aminotransferase (SGOT), serum 34 U/L 15-37 calcium, serum 9.4 mg/dL 8.5-10.1 bilirubin, serum, total 0.40 mg/dL 0.00-1.00 cholesterol, serum 405 mg/dL 728-140 4053/11/23 triglyceride, serum, fasting 709 mg/dL 30-200 HDL [...] 0-19 Encounters Code Encounter Date Provider Facility CPT-83837 Level 4 Est. Patient 15:42:12 CDT Baltazar Childers MD [facility] CPT-47458 Level 4 Est. Patient 11:29:55 CDT Baltazar Childers MD [facility] CPT-25484 Level 4 Est. Patient 14:15:19 CDT Baltazar Childers MD [facility] CPT-88773 Level 4 Est. Patient 12:20:13 CDT Baltazar Childers MD [facility] CPT-30357 Level 4 Est. Patient 14:52:45 PUBLICATIONS INSPECTOR Baltazar Childers MD [facility] CPT-60947 Level 4 Est. Patient 14:18:34 PUBLICATIONS INSPECTOR Baltazar Childers MD [facility] CPT-41661 Level 4 Est. Patient 15:18:29 CDT Baltazar Childers MD [facility] CPT-15023 Level 3 Est. Patient 12:45:34 CDT Baltazar Childers MD [facility] CPT-45424 Level 3 Est. Patient 10:10:11 CDT Baltazar Childers MD [facility] CPT-99995 Level 3 Est. Patient 14:07:50 CDT Baltazar Childers MD [facility] CPT-86786 Level 4 Est. Patient 12:26:10 PUBLICATIONS INSPECTOR Baltazar Childers MD [facility] CPT-02966 Level 4 Est. Patient 14:45:38 CDT Baltazar Childers MD [facility] CPT-13690 Level 4 New Patient 12:30:48 CDT Baltazar hinton MD [facility] Procedures Code Procedure Name Date Entry Date Standard Desc ription CPT-29646 Immunization Single Admin 17:35:35 CDT 2014 CPT-20975 Fluzone Quadrivalent preservative free ( >=3yrs.) 17:35:35 CDT CPT-49357 Venipuncture Draw Fee 12:10:27 PUBLICATIONS INSPECTOR CPT-52438 Fluzone Quadrivalent Intramuscular Suspe nsion 0.5 ML 10:49:13 CDT CPT-59201 First Vx Component - Ix admi n via ID IM or jet inj without physician counseling 15:17:19 PUBLICATIONS INSPECTOR CPT-54382 Pneumovax 23 15:17:19 PUBLICATIONS INSPECTOR CPT-06160 Pneumovax 14:52:45 PUBLICATIONS INSPECTOR CPT-05469 Venipuncture Draw Fee 14:06:30 PUBLICATIONS INSPECTOR CPT-000 Give Appropriate Flu Vaccine 14:18:34 PUBLICATIONS INSPECTOR 2 CPT-45657 Administration single or combination vac cine inc oral 14:46:00 PUBLICATIONS INSPECTOR CPT-60224 Influenza split virus > age 3 14:46:00 PUBLICATIONS INSPECTOR CPT-OV Office Visit 19:13:16 CDT CPT-33809 Zostavax 18:41:56 CDT CPT-54650 Administration single or combination vac cine inc oral 12:56:39 CDT CPT-09442 Zoster Vaccine (Zostavax) 12:56:39 CDT 2012 CPT-32380 Venipuncture Draw Fee 10:58:57 CDT CPT-67427 Sono pelvis non OB uterus ovaries cervix 17:45:04 CDT CPT-30681 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
--- OUTSIDE RECORDS SUMMARY | 2019-10-27 13:22 | XMS REPORT | Clinical Summary ---
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 Benign neoplasm of colon PERIPHERAL NEUROPATHY [...] ronary atherosclerosis of unspecified type of vessel, [place] or graft OTH NONSPC ABN FINDNG [...] MISC Test twice a day LANCET S 76948995706 Active Baltazar Childers MD Active TRUEDRAW LANCING DEVICE MISC Test twice a day L ANCET DEVICES 70348318063 Active Baltazar Childers MD Active TRUETRACK TEST STRP Test twice a day GLUCOSE BLOO D 04949675422 Active Baltazar Childers MD Active TRUETRACK BLOOD GLUCOSE W/DEVICE KIT Test twice a day BLOOD GLUCOSE MONITORING SUPPL 96036515752 Active Bella Suarez STRATEGIC MARKETING SPECIALIST Active HYDROCODONE-ACETAMINOPHEN 7.5-325 MG TABS Take 1 tab every 6-8 hour s PRN HYDROCODONE-ACETAMINOPHEN 79426310259 Active Baltazar Childers MD Active NORTRIPTYLINE HCL 50 MG CAPS 1 every night for neuropathy 4 NORTRIPTYLINE HCL 55237388891 Active Baltazar Childers MD Acti ve GABAPENTIN 300 MG CAPS 1 three times a day GABAPE NTIN 66613818639 Active Baltazar Childers MD Active GABAPENTIN 300 MG CAPS 1 po qd x 2 days, then 1 po BID x 2 d ays, then 1 po TID GABAPENTIN 01383224403 No Longer Active Baltazar silverman MD Active TRAMADOL HCL 50 MG TABS 1 twice a day as needed for pain TRAMADOL HCL 23217372355 Active Balatzar Childers MD Active NAPROXEN 500 MG TABS 1 tablet by mouth twice daily NAPROXEN 97440558489 No Longer Active Baltazar Childers MD Active PROAIR HFA 108 (90 BASE) MCG/ACT AERS 2 puffs four times a d ay as needed ALBUTEROL SULFATE 26656937915 Active Baltazar Childers MD Active DEPO-TESTOSTERONE 200 MG/ML OIL as directed RUFINO TOSTERONE CYPIONATE 54521983308 No Longer Active Baltazar Childers MD Active LIPITOR 20 MG TABS Take one by mouth daily in evening ATORVASTATIN CALCIUM 05172742910 No Longer Active Baltazar Childers MD Activ e CRESTOR 10 MG TABS 1 by mouth every day R OSUVASTATIN CALCIUM 53653658164 No Longer Active Baltazar Childers MD Activ e PHENTERMINE HCL 37.5 MG TABS Take one by mouth daily 2 PHENTERMINE HCL 17472542769 No Longer Active Baltazar Childers MD Activ e ROBAXIN-750 750 MG TABS Take one by mouth daily ME THOCARBAMOL 57204956019 Active Baltazar Childers MD Active TIZANIDINE HCL 4 MG TABS 1 daily as needed for muscle spasm 2011 TIZANIDINE HCL 55752568307 No Longer Active Dawna Salazar RN Active ONETOUCH ULTRA BLUE STRP Test twice a day GLUCO SE BLOOD 56154243339 Active Baltazar Childers MD Active HIGTYTRZEI-ANPB-XPNZMTPE 50-325-40 MG TABS 1 four time s a day as needed for heacache [id number] 82805266760 Active Baltazar Childers MD Active SUMATRIPTAN SUCCINATE 100 MG TABS 1 tablet by mouth at onset of migraine as needed SUMATRIPTAN SUCCINATE 92726628718 Active Baltazar barron MD Active LORATADINE 10 MG TABS Take one by mouth daily LORATADINE 34651552386 Active Baltazar Childers MD Active FUROSEMIDE 40 MG TABS Take one by mouth daily FUROSEMIDE 54820067320 Active Baltazar Childers MD Active LISINOPRIL 20 MG TABS Take one by mouth daily at bedtime LISINOPRIL 22457376950 Active Baltazar Childers MD Active OMEPRAZOLE 20 MG CPDR Take one by mouth daily OMEPRAZOLE 73222155719 Active Baltazar Childers MD Active HYDROXYZINE HCL 25 MG TABS Take one by mouth daily HYDROXYZINE HCL 68398906484 Active Baltazar Childers MD Active GLIPIZIDE 10 MG TABS 1 tablet by mouth twice daily GLIPIZIDE 03681423861 Active Baltazar Childers MD Active ALPRAZOLAM 1 MG TABS 1 tablet by mouth daily at bedtime for restles s leg ALPRAZOLAM 79283106348 Active Baltazar Childers MD Active METFORMIN HCL 1000 MG TABS Take one by mouth twice daily METFORMIN HCL 07479513775 Active Baltazar Childers MD Active TIZANIDINE HCL 4 MG TABS 1 daily as needed for muscle spasm 2011 TIZANIDINE HCL 4 MG TABS 717482 TIZANIDINE HCL Inactiv e PHENTERMINE HCL 37.5 MG TABS Take one by mouth daily 2 PHENTERMINE HCL 37.5 MG TABS 558053 PHENTERMINE HCL Inactive CRESTOR 10 MG TABS 1 by mouth every day C RESTOR 10 MG TABS ROSUVASTATIN CALCIUM Inactive LIPITOR 20 MG TABS Take one by mouth daily in evening LIPITOR 20 MG TABS 424265 ATORVASTATIN CALCIUM Inactive DEPO-TESTOSTERONE 200 MG/ML OIL as directed 8 DEPO-TESTOSTERONE 200 MG/ML OIL 392055 TESTOSTERONE CYPIONATE Inactive NAPROXEN 500 MG TABS 1 tablet by mouth twice daily 201 07/27/22 NAPROXEN 500 MG TABS 617138 NAPROXEN Inactive GABAPENTIN 300 MG CAPS 1 po qd x 2 days, then 1 po BID x 2 d ays, then 1 po TID GABAPENTIN 300 MG CAPS 905506 GABAPENTIN Inact amie Immunizations Vaccine Administration Date Value Standard Floyd cription pneumococcal immunization administered Pneumovax 23 [CVX33] pneumococcal polysaccharide vaccine, 23 valent Seasonal influenza vaccine, injectable, containing preservative, for > 3 years old (Afluria, FluLaval, Fluzone, Fluvirin, Fluarix, Agriflu(>= 18 yo)) Fluzone (>3 yrs.) [[id number]] Influenza, seasonal, inject able Seasonal influenza vaccine, injectable, containing preservative, for > 3 years old (Afluria, FluLaval, Fluzone, Fluvirin, Fluarix, Agriflu(>= 18 yo)) Fluzone (>3 yrs.) [ZGV112] Influenza, seasonal, inject able Vital Signs Date [...] - Chem istry sodium, serum 140 mmol/L 692-095 2528/05/05 potassium, serum 4.9 mmol/L 3.5-5.2 chloride, serum [...] Panel - Chemistry sodium, serum 139 mmol/L 321-703 0530/01/20 potassium, serum 5.3 mmol/L 3.5-5.2 chloride, serum [...] mg/g mg/g{creat} 0-29 cholesterol, serum 319 mg/dL 736-579 0272/08/21 triglyceride, serum, fasting 546 mg/dL 30-200 HDL cholesterol, serum 39 mg/dL 32-96 LDL cholesterol, serum 167.00 mg/dL 5.00-130.00 hemoglobin A1C, blood, as % of total hemoglobin 7.7 % 4.3-6.0 sodium, serum 138 mmol/L 151-163 7813/08/21 potassium, serum 4.3 mmol/L 3.5-5.2 chloride, serum [...] 0-19 Encounters Code Encounter Date Provider Facility CPT-74886 Level 4 Est. Patient 11:29:55 CDT Baltazar Childers MD [facility] CPT-25856 Level 4 Est. Patient 14:15:19 CDT Baltazar Childers MD [facility] CPT-88966 Level 4 Est. Patient 12:20:13 CDT Baltazar Childers MD [facility] CPT-29619 Level 4 Est. Patient 14:52:45 UI DEVELOPER Baltazar Childers MD [facility] CPT-11165 Level 4 Est. Patient 14:18:34 UI DEVELOPER Baltazar Childers MD [facility] CPT-91313 Level 4 Est. Patient 15:18:29 CDT Baltazar Childers MD [facility] CPT-82847 Level 3 Est. Patient 12:45:34 CDT Baltazar Childers MD [facility] CPT-93834 Level 3 Est. Patient 10:10:11 CDT Baltazar Childers MD [facility] CPT-88195 Level 3 Est. Patient 14:07:50 CDT Baltazar Childers MD [facility] CPT-74676 Level 4 Est. Patient 12:26:10 UI DEVELOPER Baltazar Childers MD [facility] CPT-56448 Level 4 Est. Patient 14:45:38 CDT Baltazar Childers MD [facility] CPT-77594 Level 4 New Patient 12:30:48 CDT Baltazar hinton MD [facility] Procedures Code Procedure Name Date Entry Date Standard Desc ription CPT-57459 Venipuncture Draw Fee 12:10:27 UI DEVELOPER CPT-12950 Fluzone Quadrivalent Intramuscular Suspe nsion 0.5 ML 10:49:13 CDT CPT-98041 First Vx Component - Ix admi n via ID IM or jet inj without physician counseling 15:17:19 UI DEVELOPER CPT-13472 Pneumovax 15:17:19 UI DEVELOPER CPT-65263 Pneumovax 14:52:45 UI DEVELOPER CPT-12816 Venipuncture Draw Fee 14:06:30 UI DEVELOPER CPT-000 Give Appropriate Flu Vaccine 14:18:34 UI DEVELOPER 2 CPT-59306 Administration single or combination vac cine inc oral 14:46:00 UI DEVELOPER CPT-38425 Influenza split virus > age 3 14:46:00 UI DEVELOPER CPT-OV Office Visit 19:13:16 CDT CPT-94694 Zostavax 18:41:56 CDT CPT-65161 Administration single or combination vac cine inc oral 12:56:39 CDT CPT-70109 Zoster Vaccine (Zostavax) 12:56:39 CDT 2012 CPT-05518 Venipuncture Draw Fee 10:58:57 CDT CPT-78948 Sono pelvis non OB uterus ovaries cervix 17:45:04 CDT CPT-53445 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
--- OUTSIDE RECORDS SUMMARY | 2019-10-27 13:23 | XMS REPORT | Clinical Summary ---
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 Benign neoplasm of colon PERIPHERAL NEUROPATHY 356.9 [...] ronary atherosclerosis of unspecified type of vessel, kashia or graft OTH NONSPC ABN FINDNG RAD&OTH [...] three times a day 201 12/03/26 GABAPENTIN 50941992986 No Longer Active Baltazar Childers MD Activ e LISINOPRIL 20 MG ORAL TABLET 1 tablet by mouth daily at night 2016 LISINOPRIL 83901105980 Active Baltazar Childers MD Active ZITHROMAX Z-ISAIAS 250 MG ORAL TABLET Take two tablets to day and then 1 tablet daily for 4 days AZITHROMYCIN 87029363060 No Longer A ctive Baltazar Childers MD Active LANTUS SOLOSTAR 100 UNIT/ML SUBCUTANEOUS SOLUTION PEN- INJECTOR 30 units SC daily INSULIN GLARGINE 96111863959 Active Baltazar Childers MD Active AMLODIPINE BESYLATE 5 MG ORAL TABLET 1 tab daily for HTN AMLODIPINE BESYLATE 59505452344 Active Baltazar Childers MD Active SYNTHROID 100 MCG ORAL TABLET 1 tablet by mouth daily LEVOTHYROXINE SODIUM 98285250750 Active Baltazar Childers MD Active GLIPIZIDE 10 MG ORAL TABLET take 2 tablets twice daily GLIPIZIDE 62983374141 Active Baltazar Childers MD Active SUCRALFATE 1 GM ORAL TABLET 1 four times a day to coat the stoma ch SUCRALFATE 57493769352 No Longer Active Baltazar Childers MD Active PEN NEEDLES 31G X 6 MM use 1 daily INSULIN PEN NE EDLE 66576907249 Active KENDALL Juarez Active CELINA SOLOSTNAKITA 300 UNIT/ML SUBCUTANEOUS SOLUTION PEN- INJECTOR 10 units SC daily INSULIN GLARGINE 65046515552 No Longer Active Rola Godinez RMA Active NAPROXEN SODIUM 220 MG ORAL TABLET 1 three times a day as needed NAPROXEN SODIUM 44265164831 No Longer Active Baltazar Childers MD Active ATORVASTATIN CALCIUM 20 MG ORAL TABLET Take 1 tab daily ATORVASTATIN CALCIUM 94967204404 Active Baltazar Childers MD A ctive FUROSEMIDE 40 MG ORAL TABLET Take one by mouth daily FUROSEMIDE 57508040914 Active Baltazar Childers MD Active LISINOPRIL 20 MG ORAL TABLET Take one by mouth daily at bedtime LISINOPRIL 78943450470 No Longer Active Baltazar Childers MD Active ONETOUCH ULTRA BLUE IN VITRO STRIP Test twice a day 07/11/11 GLUCOSE BLOOD 07888277666 No Longer Active Baltazar Childers MD Acti ve TRUEPLUS LANCETS 33G Test twice a day LANCETS 3332198 9837 Active KENDALL Juarez Active TRUEDRAW LANCING DEVICE Test twice a day LANCET DEVICES 28916067660 Active Baltazar Childers MD Active TRUETRACK TEST IN VITRO STRIP Test twice a day GLUCOSE BLOOD 75275015997 Active KENDALL Juarez Active TRUETRACK BLOOD GLUCOSE w/Device KIT Test twice a day BLOOD GLUCOSE MONITORING SUPPL 90408754702 Active Baltazar Childers MD Activ e HYDROCODONE-ACETAMINOPHEN 7.5-325 MG ORAL TABLET Take 1 tab every 6-8 hours PRN HYDROCODONE-ACETAMINOPHEN 98960488450 Active Baltazar Nickerson MD Active NORTRIPTYLINE HCL 50 MG ORAL CAPSULE 1 every night for neuropathy 2 NORTRIPTYLINE HCL 56600520223 Active Baltazar Childers MD Acti ve GABAPENTIN 300 MG ORAL CAPSULE 1 po qd x 2 days, then 1 po BID x 2 days, then 1 po TID GABAPENTIN 15217773594 No Longer Active Baltazar Childers MD Active TRAMADOL HCL 50 MG ORAL TABLET 1 twice a day as needed for pain 201 07/27/28 TRAMADOL HCL 97158528935 Active Baltazar Childers MD Active NAPROXEN 500 MG ORAL TABLET 1 tablet by mouth twice daily NAPROXEN 16221098007 No Longer Active Baltazar Childers MD Active PROAIR HFA 108 (90 Base) MCG/ACT INHALATION AEROSOL SO LUTION 2 puffs four times a day as needed ALBUTEROL SULFATE 27178015878 Active KENDALL Bowie Active DEPO-TESTOSTERONE 200 MG/ML INTRAMUSCULAR SOLUTION as directed TESTOSTERONE CYPIONATE 85235741971 No Longer Active Baltazar Childers MD Active LIPITOR 20 MG ORAL TABLET Take one by mouth daily in evening ATORVASTATIN CALCIUM 12129539296 No Longer Active Baltazar Childers MD Active CRESTOR 10 MG ORAL TABLET 1 by mouth every day ROSUVASTATIN CALCIUM 63059566701 No Longer Active Baltazar Childers MD Active PHENTERMINE HCL 37.5 MG ORAL TABLET Take one by mouth daily PHENTERMINE HCL 36191245371 No Longer Active Baltazar Childers MD Ac tive ROBAXIN-750 750 MG ORAL TABLET Take one by mouth daily METHOCARBAMOL 90611582009 Active KENDALL Juarez Active TIZANIDINE HCL 4 MG ORAL TABLET 1 daily as needed for muscle spa sm TIZANIDINE HCL 42832686165 No Longer Active Dawna Salazar RN Active [id number]-[id number]-KUPHPFAP 50-325-40 MG ORAL TABLET 1 fo ur times a day as needed for heacache [id number] 34489505225 Active Baltazar Childers MD Active SUMATRIPTAN SUCCINATE 100 MG ORAL TABLET 1 tablet by m outh at onset of migraine as needed SUMATRIPTAN SUCCINATE 83938496805 Active KENDALL Restrepo Active LORATADINE 10 MG ORAL TABLET Take one by mouth daily LORATADINE 24029433979 Active Baltazar Childers MD Active OMEPRAZOLE 20 MG ORAL CAPSULE DELAYED RELEASE Take one by mouth jostin ly OMEPRAZOLE 22766051655 Active Baltazar Childers MD Active HYDROXYZINE HCL 25 MG ORAL TABLET Take one by mouth daily HYDROXYZINE HCL 96355724544 Active Baltazar Childers MD Active ALPRAZOLAM 1 MG ORAL TABLET 1 [facility] 60874390565 Active Baltazar Childers MD Active METFORMIN HCL 1000 MG ORAL TABLET Take one by mouth twice daily METFORMIN HCL 43456248068 Active Baltazar Childers MD Active TIZANIDINE HCL 4 MG ORAL TABLET 1 daily as needed for muscle spa sm TIZANIDINE HCL 4 MG ORAL TABLET 948204 TIZANIDINE HCL Inactive PHENTERMINE HCL 37.5 MG ORAL TABLET Take one by mouth daily PHENTERMINE HCL 37.5 MG ORAL TABLET 838861 PHENTERMINE HCL Inac tive CRESTOR 10 MG ORAL TABLET 1 by mouth every day CRESTOR 10 MG ORAL TABLET 601133 ROSUVASTATIN CALCIUM Inactive LIPITOR 20 MG ORAL TABLET Take one by mouth daily in evening LIPITOR 20 MG ORAL TABLET 754269 ATORVASTATIN CALCIUM Inactive DEPO-TESTOSTERONE 200 MG/ML INTRAMUSCULAR SOLUTION as directed DEPO-TESTOSTERONE 200 MG/ML INTRAMUSCULAR SOLUTION 740661 RUFINO TOSTERONE CYPIONATE Inactive NAPROXEN 500 MG ORAL TABLET 1 tablet by mouth twice daily NAPROXEN 500 MG ORAL TABLET 053689 NAPROXEN Inactive GABAPENTIN 300 MG ORAL CAPSULE 1 po qd x 2 days, then 1 po BID x 2 days, then 1 po TID GABAPENTIN 300 MG ORAL CAPSULE 928874 GABAP ENTIN Inactive ONETOUCH ULTRA BLUE IN VITRO STRIP Test twice a day 07/11/11 ONETOUCH ULTRA BLUE IN VITRO STRIP GLUCOSE BLOOD Inact amie NAPROXEN SODIUM 220 MG ORAL TABLET 1 three times a day as needed NAPROXEN SODIUM 220 MG ORAL TABLET 654075 NAPROXEN SODI UM Inactive TOUJEO SOLOSTAR 300 UNIT/ML SUBCUTANEOUS SOLUTION PEN- INJECTOR 10 units SC daily TOUJEO SOLOSTAR 300 UNIT/ML SUBCUTANEOUS SOLUTION PEN-INJECTOR INSULIN GLARGINE Inactive SUCRALFATE 1 GM ORAL TABLET 1 four times a day to coat the stoma ch SUCRALFATE 1 GM ORAL TABLET 885415 SUCRALFATE Inac tive GABAPENTIN 300 MG ORAL CAPSULE 1 three times a day 201 12/03/26 GABAPENTIN 300 MG ORAL CAPSULE 299304 GABAPENTIN Inactive ZITHROMAX Z-ISAIAS 250 MG ORAL TABLET Take two tablets to day and then 1 tablet daily for 4 days ZITHROMAX Z-ISAIAS 250 MG ORAL TAB LET 119962 AZITHROMYCIN Inactive Immunizations Vaccine Administration Date Value Standard Floyd cription pneumococcal immunization administered Pneumovax 23 [CVX33] pneumococcal polysaccharide vaccine, 23 valent Seasonal influenza vaccine, injectable, containing preservative, for > 3 years old (Afluria, FluLaval, Fluzone, Fluvirin, Fluarix, Agriflu(>= 18 yo)) Fluzone (>3 yrs.) [[id number]] Influenza, seasonal, inject able Seasonal influenza vaccine, injectable, containing preservative, for > 3 years old (Afluria, FluLaval, Fluzone, Fluvirin, Fluarix, Agriflu(>= 18 yo)) Fluzone (>3 yrs.) [[id number]] Influenza, seasonal, inject able Vital Signs Date [...] - Chem istry sodium, serum 139 mmol/L 193-575 3876/10/03 potassium, serum 4.7 mmol/L 3.5-5.2 chloride, serum 98 mmol/L 98-107 carbon dioxide, venous blood 28.7 mmol/L 21.0-32 .0 blood glucose 218 mg/dL 65-110 calcium, serum 9.8 mg/dL 8.5-10.1 urea nitrogen, blood 19 mg/dL 7-18 creatinine, serum 1.68 mg/dL 0.60-1.30 Lab Report: Basic Metabolic Panel, HGBA1 C - Chemistry sodium, serum 143 mmol/L 873-345 9992/06/19 potassium, serum 5.9 mmol/L 3.5-5.2 chloride, serum 105 mmol/L 98-107 carbon dioxide, venous blood 30.2 mmol/L 21.0-32 .0 blood glucose 189 mg/dL 65-110 calcium, serum 9.7 mg/dL 8.5-10.1 urea nitrogen, blood 37 mg/dL 7-18 creatinine, serum 2.11 mg/dL 0.55-1.30 hemoglobin A1C, blood, as % of total hemoglobin 8.2 % 4.3-6.0 Lab Report: CBC, Renal Panel - Chemistry sodium, serum 142 mmol/L 531-274 6635/08/11 potassium, serum 4.8 mmol/L 3.5-5.2 chloride, serum [...] (L) - Chemistry cholesterol, serum 209 mg/dL 443-203 8496/12/27 triglyceride, serum, fasting 329 mg/dL 30-200 HDL cholesterol, serum 56 mg/dL 32-60 LDL cholesterol, serum 87 mg/dL 0-130 TSH 3.60 m[iU]/mL 0.36-3.74 Encounters Code Encounter Date Provider Facility CPT-23417 Level 4 Est. Patient 17:05:37 CDT Baltazar Childers MD [facility] CPT-10963 Level 4 Est. Patient 16:21:19 CLAIM REPRESENTATIVE Baltazar Childers MD [facility] CPT-20350 Level 4 Est. Patient 12:25:11 CDT Baltazar Childers MD [facility] CPT-45045 Level 4 Est. Patient 14:22:31 CDT Baltazar Childers MD [facility]-50441 Level 4 Est. Patient 15:44:38 CDT Shonna Parker APRN [facility] CPT-23033 Level 4 Est. Patient 11:34:17 CDT Baltazar Childers MD [facility]-24198 Level 3 Est. Patient 16:40:40 CDT Baltazar Childers MD [facility]-07386 Level 4 Est. Patient 10:41:24 CDT Baltazar Childers MD [facility]-00481 Level 4 Est. Patient 16:01:48 CDT Baltazar Childers MD [facility]-90005 Level 4 Est. Patient 16:54:07 CLAIM REPRESENTATIVE Baltazar Childers MD [facility]-72532 Level 4 Est. Patient 15:42:12 CDT Baltazar Childers MD [facility] CPT-99913 Level 4 Est. Patient 11:29:55 CDT Baltazar Childers MD [facility] CPT-01518 Level 4 Est. Patient 14:15:19 CDT Baltazar Childers MD [facility] CPT-69348 Level 4 Est. Patient 12:20:13 CDT Baltazar Childers MD [facility] CPT-98002 Level 4 Est. Patient 14:52:45 CLAIM REPRESENTATIVE Baltazar Childers MD [facility] CPT-32447 Level 4 Est. Patient 14:18:34 CLAIM REPRESENTATIVE Baltazar Childers MD [facility] CPT-35220 Level 4 Est. Patient 15:18:29 CDT Baltazar Childers MD [facility]-72792 Level 3 Est. Patient 12:45:34 CDT Baltazar Childers MD [facility]-22673 Level 3 Est. Patient 10:10:11 CDT Baltazar Childers MD [facility] CPT-45191 Level 3 Est. Patient 14:07:50 CDT Baltazar Childers MD [facility] CPT-11307 Level 4 Est. Patient 12:26:10 CLAIM REPRESENTATIVE Baltazar Childers MD [facility] CPT-71923 Level 4 Est. Patient 14:45:38 CDT Baltazar Childers MD [facility] CPT-95695 Level 4 New Patient 12:30:48 CDT Baltazar hinton MD [facility] Procedures Code Procedure Name Date Entry Date Standard Desc ription CPT-000 Give Appropriate Flu Vaccine 12:25:14 CDT 2 CPT-07144 First Vx - Ix admin via ID I M or jet injects without counseling by physician 13:08:59 CDT CPT-44549 Fluzone Quadrivalent Intramuscular Suspe nsion 0.5 ML 13:08:59 CDT CPT-78080 Venipuncture Draw Fee 12:04:12 CDT CPT-54550 Lipid - LAB USE ONLY 17:39:15 CLAIM REPRESENTATIVE 9 CPT-51000 HGBA1C - LAB USE ONLY 17:39:15 CLAIM REPRESENTATIVE CPT-12914 CMP - LAB USE ONLY 17:39:14 CLAIM REPRESENTATIVE CPT-46356 Venipuncture Draw Fee 17:39:14 CLAIM REPRESENTATIVE CPT-09731 First Vx - Ix admin via ID I M or jet injects without counseling by physician 16:55:17 CLAIM REPRESENTATIVE CPT-67035 Fluzone Quadrivalent Intramuscular Suspe nsion 0.5 ML 16:55:17 CLAIM REPRESENTATIVE CPT-01014 Renal Panel - LAB USE ONLY 17:39:20 CDT 201 10/31/07 CPT-84059 CBC - LAB USE ONLY 17:39:20 CDT CPT-92428 Venipuncture Draw Fee 17:39:20 CDT CPT-11165 Venipuncture Draw Fee 14:33:30 CDT CPT-84889 Renal Panel - LAB USE ONLY 14:33:30 CDT 201 10/31/07 CPT-50609 CBC - LAB USE ONLY 14:33:29 CDT CPT-96743 Venipuncture Draw Fee 14:50:21 CLAIM REPRESENTATIVE CPT-53866 Immunization Single Admin 17:35:35 CDT 2014 CPT-94226 Fluzone Quadrivalent preservative free ( >=3yrs.) 17:35:35 CDT CPT-30403 Venipuncture Draw Fee 12:10:27 CLAIM REPRESENTATIVE CPT-16545 Fluzone Quadrivalent Intramuscular Suspe nsion 0.5 ML 10:49:13 CDT CPT-89876 First Vx Component - Ix admi n via ID IM or jet inj without physician counseling 15:17:19 CLAIM REPRESENTATIVE CPT-13288 Pneumovax 23 15:17:19 CLAIM REPRESENTATIVE CPT-66378 Pneumovax 14:52:45 CLAIM REPRESENTATIVE CPT-55557 Venipuncture Draw Fee 14:06:30 CLAIM REPRESENTATIVE CPT-000 Give Appropriate Flu Vaccine 14:18:34 CLAIM REPRESENTATIVE 2 CPT-59098 Administration single or combination vac cine inc oral 14:46:00 CLAIM REPRESENTATIVE CPT-08414 Influenza split virus > age 3 14:46:00 CLAIM REPRESENTATIVE CPT-OV Office Visit 19:13:16 CDT CPT-22488 Zostavax 18:41:56 CDT CPT-56016 Administration single or combination vac cine inc oral 12:56:39 CDT CPT-64617 Zoster Vaccine (Zostavax) 12:56:39 CDT 2012 CPT-32050 Venipuncture Draw Fee 10:58:57 CDT CPT-10156 Sono pelvis non OB uterus ovaries cervix 17:45:04 CDT CPT-68881 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
--- OUTSIDE RECORDS SUMMARY | 2019-10-27 13:23 | XMS REPORT | Clinical Summary ---
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 Benign neoplasm of colon PERIPHERAL NEUROPATHY 356.9 [...] TABS Take 1 tab daily ATORVASTATIN CALCIUM 93332184153 Active Kelly Iraheta LPN Active NAPROXEN SODIUM 220 MG ORAL TABS 1 three times a day as needed 2014 NAPROXEN SODIUM 96814667010 Active Baltazar Childers MD Active FUROSEMIDE 40 MG TABS Take one by mouth daily FUROSEMIDE 88246801669 Active Baltazar Childers MD Active LISINOPRIL 20 MG TABS Take one by mouth daily at bedtime LISINOPRIL 46955645505 Active Baltazar Childers MD Active SpeSo HealthTOUCH ULTRA BLUE STRP Test twice a day GLUCO SE BLOOD 00188841152 No Longer Active Baltazar Childers MD Active TRUEPLUS LANCETS 33G MISC Test twice a day LANCET S 76552116439 Active Baltazar Childers MD Active TRUEDRAW LANCING DEVICE MISC Test twice a day L ANCET DEVICES 70658241887 Active Baltazar Childers MD Active TRUETRACK TEST STRP Test twice a day GLUCOSE BLOO D 51230901817 Active Baltazar Childers MD Active TRUETRACK BLOOD GLUCOSE W/DEVICE KIT Test twice a day BLOOD GLUCOSE MONITORING SUPPL 89487967683 Active Baltazar Childers MD Activ e HYDROCODONE-ACETAMINOPHEN 7.5-325 MG TABS Take 1 tab every 6-8 hour s PRN HYDROCODONE-ACETAMINOPHEN 22870663856 Active Kelly Iraheta LPN Active NORTRIPTYLINE HCL 50 MG CAPS 1 every night for neuropathy 4 NORTRIPTYLINE HCL 89942281096 Active Baltazar Childers MD Acti ve GABAPENTIN 300 MG CAPS 1 three times a day GABAPE NTIN 78666130752 Active Kelly Iraheta LPN Active GABAPENTIN 300 MG CAPS 1 po qd x 2 days, then 1 po BID x 2 d ays, then 1 po TID GABAPENTIN 59660680147 No Longer Active Baltazar silverman MD Active TRAMADOL HCL 50 MG TABS 1 twice a day as needed for pain TRAMADOL HCL 11288633490 Active Kelly Iraheta LPN Active NAPROXEN 500 MG TABS 1 tablet by mouth twice daily NAPROXEN 25737676012 No Longer Active Baltazar Childers MD Active PROAIR HFA 108 (90 BASE) MCG/ACT AERS 2 puffs four times a d ay as needed ALBUTEROL SULFATE 65083610288 Active Baltazar Childers MD Active DEPO-TESTOSTERONE 200 MG/ML OIL as directed RUFINO TOSTERONE CYPIONATE 56601950515 No Longer Active Baltazar Childers MD Active LIPITOR 20 MG TABS Take one by mouth daily in evening ATORVASTATIN CALCIUM 37818055890 No Longer Active Baltazar Childers MD Activ e CRESTOR 10 MG TABS 1 by mouth every day R OSUVASTATIN CALCIUM 73366653780 No Longer Active Baltazar Childers MD Activ e PHENTERMINE HCL 37.5 MG TABS Take one by mouth daily 2 PHENTERMINE HCL 82896146887 No Longer Active Baltazar Childers MD Activ e ROBAXIN-750 750 MG TABS Take one by mouth daily ME THOCARBAMOL 04543958876 Active Radha Person APRN Active TIZANIDINE HCL 4 MG TABS 1 daily as needed for muscle spasm 2011 TIZANIDINE HCL 35683889997 No Longer Active Dawna Salazar RN Active ABOIUHRRFO-VNPQ-NUYKPRDH 50-325-40 MG TABS 1 four time s a day as needed for heacache EWXJFODBNX-HFSY-[id number] 30178146540 Active Baltazar Childers MD Active SUMATRIPTAN SUCCINATE 100 MG TABS 1 tablet by mouth at onset of migraine as needed SUMATRIPTAN SUCCINATE 95845170707 Active Melody Paez Active LORATADINE 10 MG TABS Take one by mouth daily LORATADINE 86707739209 Active Melody Paez Active OMEPRAZOLE 20 MG CPDR Take one by mouth daily OMEPRAZOLE 97490444903 Active Baltazar Childers MD Active HYDROXYZINE HCL 25 MG TABS Take one by mouth daily HYDROXYZINE HCL 47493728762 Active Dawna Lew Active GLIPIZIDE 10 MG TABS 1 tablet by mouth twice daily GLIPIZIDE 64525295673 Active Baltazar Childers MD Active ALPRAZOLAM 1 MG TABS 1 tablet by mouth daily at bedtime for restles s leg ALPRAZOLAM 09705813419 Active Baltazar Childers MD Active METFORMIN HCL 1000 MG TABS Take one by mouth twice daily METFORMIN HCL 33353068362 Active Baltazar Childers MD Active TIZANIDINE HCL 4 MG TABS 1 daily as needed for muscle spasm 2011 TIZANIDINE HCL 4 MG TABS 201910 TIZANIDINE HCL Inactiv e PHENTERMINE HCL 37.5 MG TABS Take one by mouth daily 2 PHENTERMINE HCL 37.5 MG TABS 559078 PHENTERMINE HCL Inactive CRESTOR 10 MG TABS 1 by mouth every day C RESTOR 10 MG TABS ROSUVASTATIN CALCIUM Inactive LIPITOR 20 MG TABS Take one by mouth daily in evening LIPITOR 20 MG TABS 836201 ATORVASTATIN CALCIUM Inactive DEPO-TESTOSTERONE 200 MG/ML OIL as directed 8 DEPO-TESTOSTERONE 200 MG/ML OIL 350715 TESTOSTERONE CYPIONATE Inactive NAPROXEN 500 MG TABS 1 tablet by mouth twice daily 201 07/27/22 NAPROXEN 500 MG TABS 727603 NAPROXEN Inactive GABAPENTIN 300 MG CAPS 1 po qd x 2 days, then 1 po BID x 2 d ays, then 1 po TID GABAPENTIN 300 MG CAPS 951835 GABAPENTIN Inact amie ONETOUCH ULTRA BLUE STRP Test twice a day ONETOUCH ULTRA BLUE STRP GLUCOSE BLOOD Inactive Immunizations Vaccine Administration Date Value Standard Floyd cription pneumococcal immunization administered Pneumovax 23 [CVX33] pneumococcal polysaccharide vaccine, 23 valent Seasonal influenza vaccine, injectable, containing preservative, for > 3 years old (Afluria, FluLaval, Fluzone, Fluvirin, Fluarix, Agriflu(>= 18 yo)) Fluzone (>3 yrs.) [SQT475] Influenza, seasonal, inject able Seasonal influenza vaccine, injectable, containing preservative, for > 3 years old (Afluria, FluLaval, Fluzone, Fluvirin, Fluarix, Agriflu(>= 18 yo)) Fluzone (>3 yrs.) [JAF084] Influenza, seasonal, inject able Vital Signs Date [...] - Chem istry sodium, serum 140 mmol/L 617-205 9456/05/05 potassium, serum 4.9 mmol/L 3.5-5.2 chloride, serum 99 mmol/L 98-107 carbon dioxide, venous blood 34.3 mmol/L 21.0-32 .0 blood glucose 132 mg/dL 65-110 calcium, serum 10.1 mg/dL 8.5-10.1 urea nitrogen, blood 23 mg/dL 7-18 creatinine, serum 2.00 mg/dL 0.60-1.30 Lab Report: CBC, Renal Panel - Chemistry sodium, serum 139 mmol/L 521-406 3288/01/20 potassium, serum 5.3 mmol/L 3.5-5.2 chloride, serum [...] Panel - Chemistry sodium, serum 138 mmol/L 477-456 3500/11/23 carbon dioxide, venous blood 32.4 mmol/L 21.0-32 .0 potassium, serum 5.7 mmol/L 3.5-5.2 chloride, serum 98 mmol/L 98-107 blood glucose 136 mg/dL 65-110 urea nitrogen, blood 18 mg/dL 7-18 creatinine, serum 1.71 mg/dL 0.55-1.30 alanine aminotransferase (SGPT), serum 71 U/L 12-78 aspartate aminotransferase (SGOT), serum 34 U/L 15-37 calcium, serum 9.4 mg/dL 8.5-10.1 bilirubin, serum, total 0.40 mg/dL 0.00-1.00 cholesterol, serum 405 mg/dL 341-716 5357/11/23 triglyceride, serum, fasting 709 mg/dL 30-200 HDL [...] 0-19 Encounters Code Encounter Date Provider Facility CPT-28299 Level 4 Est. Patient 15:42:12 CDT Baltazar Childers MD [facility] CPT-37808 Level 4 Est. Patient 11:29:55 CDT Baltazar Childers MD [facility] CPT-78523 Level 4 Est. Patient 14:15:19 CDT Baltazar Childers MD [facility] CPT-71354 Level 4 Est. Patient 12:20:13 CDT Baltazar Childers MD [facility] CPT-28902 Level 4 Est. Patient 14:52:45 DEDICATED DRIVER Baltazar Childers MD [facility] CPT-52356 Level 4 Est. Patient 14:18:34 DEDICATED DRIVER Baltazar Childers MD [facility] CPT-01987 Level 4 Est. Patient 15:18:29 CDT Baltazar Childers MD [facility] CPT-15988 Level 3 Est. Patient 12:45:34 CDT Baltazar Childers MD [facility] CPT-56585 Level 3 Est. Patient 10:10:11 CDT Baltazar Childers MD [facility] CPT-94672 Level 3 Est. Patient 14:07:50 CDT Baltazar Childers MD [facility] CPT-47986 Level 4 Est. Patient 12:26:10 DEDICATED DRIVER Baltazar Childers MD [facility] CPT-80440 Level 4 Est. Patient 14:45:38 CDT Baltazar Childers MD [facility] CPT-81105 Level 4 New Patient 12:30:48 CDT Baltazar hinton MD [facility] Procedures Code Procedure Name Date Entry Date Standard Desc ription CPT-14079 Immunization Single Admin 17:35:35 CDT 2014 CPT-29981 Fluzone Quadrivalent preservative free ( >=3yrs.) 17:35:35 CDT CPT-54386 Venipuncture Draw Fee 12:10:27 DEDICATED DRIVER CPT-68127 Fluzone Quadrivalent Intramuscular Suspe nsion 0.5 ML 10:49:13 CDT CPT-29608 First Vx Component - Ix admi n via ID IM or jet inj without physician counseling 15:17:19 DEDICATED DRIVER CPT-25736 Pneumovax 23 15:17:19 DEDICATED DRIVER CPT-00565 Pneumovax 14:52:45 DEDICATED DRIVER CPT-60972 Venipuncture Draw Fee 14:06:30 DEDICATED DRIVER CPT-000 Give Appropriate Flu Vaccine 14:18:34 DEDICATED DRIVER 2 CPT-06830 Administration single or combination vac cine inc oral 14:46:00 DEDICATED DRIVER CPT-11159 Influenza split virus > age 3 14:46:00 DEDICATED DRIVER CPT-OV Office Visit 19:13:16 CDT CPT-51050 Zostavax 18:41:56 CDT CPT-77990 Administration single or combination vac cine inc oral 12:56:39 CDT CPT-36494 Zoster Vaccine (Zostavax) 12:56:39 CDT 2012 CPT-61118 Venipuncture Draw Fee 10:58:57 CDT CPT-12901 Sono pelvis non OB uterus ovaries cervix 17:45:04 CDT CPT-16420 Sono retroperitoneal complete kidneys an d bladder 17:14:36 CDT CPT-OV Office Visit 14:59:38 DEDICATED DRIVER CPT-J1070 Depo Testosterone 100 mg 14:50:13 CDT 03/05 CPT-97356 Abx/Therapy Injection 14:50:13 CDT CPT-47324 Administration single or combination vac cine inc oral 14:34:43 CDT CPT-28819 Influenza split virus > age 3 14:34:43 CDT CPT-J1070 Depo Testosterone 100 mg 17:37:13 CDT 01/11 CPT-11237 Abx/Therapy Injection 17:37:13 CDT CPT-25933 Venipuncture Draw Fee 16:30:13 CDT CPT-93472 Venipuncture Draw Fee 16:29:43 CDT CPT-J1070 Depo Testosterone 100 mg 14:45:38 CDT 01/11
--- OUTSIDE RECORDS SUMMARY | 2019-10-27 13:23 | XMS REPORT | Clinical Summary ---
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 Benign neoplasm of colon PERIPHERAL NEUROPATHY [...] atherosclerosis of unspecified type of vessel, [place] or graft OTH NONSPC ABN FINDNG RAD&OTH [...] a day as needed 2 NAPROXEN SODIUM 36374493176 No Longer Active Baltazar Childers MD Active ATORVASTATIN CALCIUM 20 MG ORAL TABS Take 1 tab daily ATORVASTATIN CALCIUM 33127398959 Active Kelly Iraheta LPN Active FUROSEMIDE 40 MG TABS Take one by mouth daily FUROSEMIDE 33266782118 Active Baltazar Childers MD Active LISINOPRIL 20 MG TABS Take one by mouth daily at bedtime LISINOPRIL 84137924158 Active KENDALL Juarez Active ONETOUCH ULTRA BLUE STRP Test twice a day GLUCO SE BLOOD 61826798290 No Longer Active Baltazar Childers MD Active TRUEPLUS LANCETS 33G MISC Test twice a day LANCET S 03299577579 Active KENDALL Juarez Active TRUEDRAW LANCING DEVICE MISC Test twice a day L ANCET DEVICES 76133283039 Active Baltazar Childers MD Active TRUETRACK TEST STRP Test twice a day GLUCOSE BLOO D 33464708514 Active Baltazar Childers MD Active TRUETRACK BLOOD GLUCOSE W/DEVICE KIT Test twice a day BLOOD GLUCOSE MONITORING SUPPL 59574887127 Active Baltazar Childers MD Activ e HYDROCODONE-ACETAMINOPHEN 7.5-325 MG TABS Take 1 tab every 6-8 hour s PRN HYDROCODONE-ACETAMINOPHEN 89955207436 Active Baltazar Childers MD Active NORTRIPTYLINE HCL 50 MG CAPS 1 every night for neuropathy 4 NORTRIPTYLINE HCL 93464960692 Active Baltazar Childers MD Acti ve GABAPENTIN 300 MG CAPS 1 three times a day GABAPE NTIN 63283040788 Active KENDALL Juarez Active GABAPENTIN 300 MG CAPS 1 po qd x 2 days, then 1 po BID x 2 d ays, then 1 po TID GABAPENTIN 37516969070 No Longer Active Baltazar silverman MD Active TRAMADOL HCL 50 MG TABS 1 twice a day as needed for pain TRAMADOL HCL 82114551094 Active Baltazar Childers MD Active NAPROXEN 500 MG TABS 1 tablet by mouth twice daily NAPROXEN 81254958530 No Longer Active Baltazar Childers MD Active PROAIR HFA 108 (90 BASE) MCG/ACT AERS 2 puffs four times a d ay as needed ALBUTEROL SULFATE 53801173992 Active KENDALL Juarez Active DEPO-TESTOSTERONE 200 MG/ML OIL as directed RUFINO TOSTERONE CYPIONATE 39250883484 No Longer Active Baltazar Childers MD Active LIPITOR 20 MG TABS Take one by mouth daily in evening ATORVASTATIN CALCIUM 78512902110 No Longer Active Baltazar Childers MD Activ e CRESTOR 10 MG TABS 1 by mouth every day R OSUVASTATIN CALCIUM 09952434926 No Longer Active Baltazar Childers MD Activ e PHENTERMINE HCL 37.5 MG TABS Take one by mouth daily 2 PHENTERMINE HCL 16127358798 No Longer Active Baltazar Childers MD Activ e ROBAXIN-750 750 MG TABS Take one by mouth daily ME THOCARBAMOL 62569082471 Active Baltazar Childers MD Active TIZANIDINE HCL 4 MG TABS 1 daily as needed for muscle spasm 2011 TIZANIDINE HCL 25685944355 No Longer Active Dawna Salazar RN Active [id number] 50-325-40 MG TABS 1 four time s a day as needed for heacache [id number] 13097663715 Active Baltazar Childers MD Active SUMATRIPTAN SUCCINATE 100 MG TABS 1 tablet by mouth at onset of migraine as needed SUMATRIPTAN SUCCINATE 22638889884 Active KENDALL Juarez Active LORATADINE 10 MG TABS Take one by mouth daily LORATADINE 04531950089 Active Baltazar Childers MD Active OMEPRAZOLE 20 MG CPDR Take one by mouth daily OMEPRAZOLE 92348575440 Active Baltazar Childers MD Active HYDROXYZINE HCL 25 MG TABS Take one by mouth daily HYDROXYZINE HCL 17859404904 Active Baltazar Childers MD Active GLIPIZIDE 10 MG TABS 1 tablet by mouth twice daily GLIPIZIDE 30433522266 Active Bella Suarez APRN Active ALPRAZOLAM 1 MG TABS 1 tablet by mouth daily at bedtime for restles s leg ALPRAZOLAM 74015554538 Active Baltazar Childers MD Active METFORMIN HCL 1000 MG TABS Take one by mouth twice daily METFORMIN HCL 57654389754 Active Baltazar Childers MD Active TIZANIDINE HCL 4 MG TABS 1 daily as needed for muscle spasm 2011 TIZANIDINE HCL 4 MG TABS 778631 TIZANIDINE HCL Inactiv e PHENTERMINE HCL 37.5 MG TABS Take one by mouth daily 2 PHENTERMINE HCL 37.5 MG TABS 283278 PHENTERMINE HCL Inactive CRESTOR 10 MG TABS 1 by mouth every day C RESTOR 10 MG TABS ROSUVASTATIN CALCIUM Inactive LIPITOR 20 MG TABS Take one by mouth daily in evening LIPITOR 20 MG TABS 737574 ATORVASTATIN CALCIUM Inactive DEPO-TESTOSTERONE 200 MG/ML OIL as directed 8 DEPO-TESTOSTERONE 200 MG/ML OIL 320122 TESTOSTERONE CYPIONATE Inactive NAPROXEN 500 MG TABS 1 tablet by mouth twice daily 201 07/27/22 NAPROXEN 500 MG TABS 833824 NAPROXEN Inactive GABAPENTIN 300 MG CAPS 1 po qd x 2 days, then 1 po BID x 2 d ays, then 1 po TID GABAPENTIN 300 MG CAPS 335951 GABAPENTIN Inact amie ONETOUCH ULTRA BLUE STRP Test twice a day ONETOUCH ULTRA BLUE STRP GLUCOSE BLOOD Inactive NAPROXEN SODIUM 220 MG ORAL TABS 1 three times a day as needed 2 NAPROXEN SODIUM 220 MG ORAL TABS 236376 NAPROXEN SODIUM Inactive Immunizations Vaccine Administration Date Value Standard Floyd cription pneumococcal immunization administered Pneumovax 23 [CVX33] pneumococcal polysaccharide vaccine, 23 valent Seasonal influenza vaccine, injectable, containing preservative, for > 3 years old (Afluria, FluLaval, Fluzone, Fluvirin, Fluarix, Agriflu(>= 18 yo)) Fluzone (>3 yrs.) [[id number]] Influenza, seasonal, inject able Seasonal influenza vaccine, injectable, containing preservative, for > 3 years old (Afluria, FluLaval, Fluzone, Fluvirin, Fluarix, Agriflu(>= 18 yo)) Fluzone (>3 yrs.) [LYV913] Influenza, seasonal, inject able Vital Signs Date [...] - Chem istry sodium, serum 140 mmol/L 517-936 8986/05/05 potassium, serum 4.9 mmol/L 3.5-5.2 chloride, serum 99 mmol/L 98-107 carbon dioxide, venous blood 34.3 mmol/L 21.0-32 .0 blood glucose 132 mg/dL 65-110 calcium, serum 10.1 mg/dL 8.5-10.1 urea nitrogen, blood 23 mg/dL 7-18 creatinine, serum 2.00 mg/dL 0.60-1.30 Lab Report: CBC, HGBA1C, Renal Panel - C hemistry hemoglobin A1C, blood, as % of total hemoglobin 7.9 % 4.3-6.0 sodium, serum 139 mmol/L 806-468 8085/02/04 potassium, serum 5.4 mmol/L 3.5-5.2 chloride, serum [...] Panel - Chemistry sodium, serum 138 mmol/L 949-449 9442/11/23 carbon dioxide, venous blood 32.4 mmol/L 21.0-32 .0 potassium, serum 5.7 mmol/L 3.5-5.2 chloride, serum 98 mmol/L 98-107 blood glucose 136 mg/dL 65-110 urea nitrogen, blood 18 mg/dL 7-18 creatinine, serum 1.71 mg/dL 0.55-1.30 alanine aminotransferase (SGPT), serum 71 U/L 12-78 aspartate aminotransferase (SGOT), serum 34 U/L 15-37 calcium, serum 9.4 mg/dL 8.5-10.1 bilirubin, serum, total 0.40 mg/dL 0.00-1.00 cholesterol, serum 405 mg/dL 072-714 0820/11/23 triglyceride, serum, fasting 709 mg/dL 30-200 HDL [...] mg/dL Encounters Code Encounter Date Provider Facility CPT-93189 Level 4 Est. Patient 16:54:07 CELL REPAIRER Baltazar Childers MD [facility] CPT-05342 Level 4 Est. Patient 15:42:12 CDT Baltazar Childers MD [facility] CPT-15607 Level 4 Est. Patient 11:29:55 CDT Baltazar Childers MD [facility] CPT-11044 Level 4 Est. Patient 14:15:19 CDT Baltazar Childers MD [facility] CPT-30989 Level 4 Est. Patient 12:20:13 CDT Baltazar Childers MD [facility] CPT-04664 Level 4 Est. Patient 14:52:45 CELL REPAIRER Baltazar Childers MD [facility] CPT-65700 Level 4 Est. Patient 14:18:34 CELL REPAIRER Baltazar Childers MD [facility] CPT-28995 Level 4 Est. Patient 15:18:29 CDT Baltazar Childers MD [facility] CPT-40409 Level 3 Est. Patient 12:45:34 CDT Baltazar Childers MD [facility] CPT-89756 Level 3 Est. Patient 10:10:11 CDT Baltazar Childers MD [facility] CPT-37835 Level 3 Est. Patient 14:07:50 CDT Baltazar Childers MD [facility] CPT-56603 Level 4 Est. Patient 12:26:10 CELL REPAIRER Baltazar Childers MD [facility] CPT-09258 Level 4 Est. Patient 14:45:38 CDT Baltazar Childers MD [facility] CPT-81703 Level 4 New Patient 12:30:48 CDT Baltazar hinton MD [facility] Procedures Code Procedure Name Date Entry Date Standard Desc ription CPT-93145 Venipuncture Draw Fee 14:50:21 CELL REPAIRER CPT-83392 Immunization Single Admin 17:35:35 CDT 2014 CPT-18566 Fluzone Quadrivalent preservative free ( >=3yrs.) 17:35:35 CDT CPT-86978 Venipuncture Draw Fee 12:10:27 CELL REPAIRER CPT-76979 Fluzone Quadrivalent Intramuscular Suspe nsion 0.5 ML 10:49:13 CDT CPT-10551 First Vx Component - Ix admi n via ID IM or jet inj without physician counseling 15:17:19 CELL REPAIRER CPT-67832 Pneumovax 23 15:17:19 CELL REPAIRER CPT-18688 Pneumovax 14:52:45 CELL REPAIRER CPT-39004 Venipuncture Draw Fee 14:06:30 CELL REPAIRER CPT-000 Give Appropriate Flu Vaccine 14:18:34 CELL REPAIRER 2 CPT-42847 Administration single or combination vac cine inc oral 14:46:00 CELL REPAIRER CPT-73648 Influenza split virus > age 3 14:46:00 CELL REPAIRER CPT-OV Office Visit 19:13:16 CDT CPT-60745 Zostavax 18:41:56 CDT CPT-26312 Administration single or combination vac cine inc oral 12:56:39 CDT CPT-56126 Zoster Vaccine (Zostavax) 12:56:39 CDT 2012 CPT-84948 Venipuncture Draw Fee 10:58:57 CDT CPT-17526 Sono pelvis non OB uterus ovaries cervix 17:45:04 CDT CPT-10663 Sono retroperitoneal complete kidneys an d bladder 17:14:36 CDT CPT-OV Office Visit 14:59:38 CELL REPAIRER CPT-J1070 Depo Testosterone 100 mg 14:50:13 CDT 03/05 CPT-35655 Abx/Therapy Injection 14:50:13 CDT CPT-63520 Administration single or combination vac cine inc oral 14:34:43 CDT CPT-99467 Influenza split virus > age 3 14:34:43 CDT CPT-J1070 Depo Testosterone 100 mg 17:37:13 CDT 01/11 CPT-38653 Abx/Therapy Injection 17:37:13 CDT CPT-44517 Venipuncture Draw Fee 16:30:13 CDT CPT-30691 Venipuncture Draw Fee 16:29:43 CDT CPT-J1070 Depo Testosterone 100 mg 14:45:38 CDT 01/11
--- OUTSIDE RECORDS SUMMARY | 2019-10-27 13:23 | XMS REPORT | Clinical Summary ---
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 Benign neoplasm of colon PERIPHERAL NEUROPATHY [...] ronary atherosclerosis of unspecified type of vessel, elim [place] or graft OTH NONSPC ABN FINDNG [...] a day as needed 2 NAPROXEN SODIUM 71348904488 No Longer Active Baltazar Childers MD Active ATORVASTATIN CALCIUM 20 MG ORAL TABS Take 1 tab daily ATORVASTATIN CALCIUM 67156273307 Active KENDALL Juarez Active FUROSEMIDE 40 MG TABS Take one by mouth daily FUROSEMIDE 73082675087 Active Baltazar Childers MD Active LISINOPRIL 20 MG TABS Take one by mouth daily at bedtime LISINOPRIL 17063760063 Active KENDALL Juarez Active ONETOUCH ULTRA BLUE STRP Test twice a day GLUCO SE BLOOD 92569638047 No Longer Active Baltazar Childers MD Active TRUEPLUS LANCETS 33G MISC Test twice a day LANCET S 97632856086 Active KENDALL Juarez Active TRUEDRAW LANCING DEVICE MISC Test twice a day L ANCET DEVICES 95111301837 Active Baltazar Childers MD Active TRUETRACK TEST STRP Test twice a day GLUCOSE BLOO D 02168542234 Active KENDALL Juarez Active TRUETRACK BLOOD GLUCOSE W/DEVICE KIT Test twice a day BLOOD GLUCOSE MONITORING SUPPL 77342524130 Active Baltazar Childers MD Activ e HYDROCODONE-ACETAMINOPHEN 7.5-325 MG TABS Take 1 tab every 6-8 hour s PRN HYDROCODONE-ACETAMINOPHEN 24370862932 Active Baltazar Childers MD Active NORTRIPTYLINE HCL 50 MG CAPS 1 every night for neuropathy 4 NORTRIPTYLINE HCL 68876338795 Active Baltazar Childers MD Acti ve GABAPENTIN 300 MG CAPS 1 three times a day GABAPE NTIN 63438461983 Active KENDALL Juarez Active GABAPENTIN 300 MG CAPS 1 po qd x 2 days, then 1 po BID x 2 d ays, then 1 po TID GABAPENTIN 48401779182 No Longer Active Baltazar silverman MD Active TRAMADOL HCL 50 MG TABS 1 twice a day as needed for pain TRAMADOL HCL 48822077322 Active Baltazar Childers MD Active NAPROXEN 500 MG TABS 1 tablet by mouth twice daily NAPROXEN 26455398081 No Longer Active Baltazar Childers MD Active PROAIR HFA 108 (90 BASE) MCG/ACT AERS 2 puffs four times a d ay as needed ALBUTEROL SULFATE 75657604038 Active KENDALL Juarez Active DEPO-TESTOSTERONE 200 MG/ML OIL as directed RUFINO TOSTERONE CYPIONATE 42458794714 No Longer Active Baltazar Childers MD Active LIPITOR 20 MG TABS Take one by mouth daily in evening ATORVASTATIN CALCIUM 04190800802 No Longer Active Baltazar Childers MD Activ e CRESTOR 10 MG TABS 1 by mouth every day R OSUVASTATIN CALCIUM 91742892928 No Longer Active Baltazar Childers MD Activ e PHENTERMINE HCL 37.5 MG TABS Take one by mouth daily 2 PHENTERMINE HCL 65533224570 No Longer Active Baltazar Childers MD Activ e ROBAXIN-750 750 MG TABS Take one by mouth daily ME THOCARBAMOL 78909932779 Active Baltazar Childers MD Active TIZANIDINE HCL 4 MG TABS 1 daily as needed for muscle spasm 2011 TIZANIDINE HCL 57737273679 No Longer Active Dawna Salazar RN Active [id number] 50-325-40 MG TABS 1 four time s a day as needed for heacache [id number] 44063298589 Active KENDALL Juarez Active SUMATRIPTAN SUCCINATE 100 MG TABS 1 tablet by mouth at onset of migraine as needed SUMATRIPTAN SUCCINATE 49977761431 Active KENDALL Juarez Active LORATADINE 10 MG TABS Take one by mouth daily LORATADINE 36104539281 Active Baltazar Childers MD Active OMEPRAZOLE 20 MG CPDR Take one by mouth daily OMEPRAZOLE 69097946253 Active Baltazar Childers MD Active HYDROXYZINE HCL 25 MG TABS Take one by mouth daily HYDROXYZINE HCL 04897931869 Active Baltazar Childers MD Active GLIPIZIDE 10 MG TABS 1 tablet by mouth twice daily GLIPIZIDE 35395864187 Active KENDALL Juarez Active ALPRAZOLAM 1 MG TABS 1 tablet by mouth daily at bedtime for restles s leg ALPRAZOLAM 76956326161 Active Baltazar Childers MD Active METFORMIN HCL 1000 MG TABS Take one by mouth twice daily METFORMIN HCL 19760394017 Active Baltazar Childers MD Active TIZANIDINE HCL 4 MG TABS 1 daily as needed for muscle spasm 2011 TIZANIDINE HCL 4 MG TABS 941422 TIZANIDINE HCL Inactiv e PHENTERMINE HCL 37.5 MG TABS Take one by mouth daily 2 PHENTERMINE HCL 37.5 MG TABS 891514 PHENTERMINE HCL Inactive CRESTOR 10 MG TABS 1 by mouth every day C RESTOR 10 MG TABS ROSUVASTATIN CALCIUM Inactive LIPITOR 20 MG TABS Take one by mouth daily in evening LIPITOR 20 MG TABS 936384 ATORVASTATIN CALCIUM Inactive DEPO-TESTOSTERONE 200 MG/ML OIL as directed 8 DEPO-TESTOSTERONE 200 MG/ML OIL 976929 TESTOSTERONE CYPIONATE Inactive NAPROXEN 500 MG TABS 1 tablet by mouth twice daily 201 07/27/22 NAPROXEN 500 MG TABS 003472 NAPROXEN Inactive GABAPENTIN 300 MG CAPS 1 po qd x 2 days, then 1 po BID x 2 d ays, then 1 po TID GABAPENTIN 300 MG CAPS 282124 GABAPENTIN Inact amie ONETOUCH ULTRA BLUE STRP Test twice a day ONETOUCH ULTRA BLUE STRP GLUCOSE BLOOD Inactive NAPROXEN SODIUM 220 MG ORAL TABS 1 three times a day as needed 2 NAPROXEN SODIUM 220 MG ORAL TABS 598152 NAPROXEN SODIUM Inactive Immunizations Vaccine Administration Date Value Standard Floyd cription pneumococcal immunization administered Pneumovax 23 [CVX33] pneumococcal polysaccharide vaccine, 23 valent Seasonal influenza vaccine, injectable, containing preservative, for > 3 years old (Afluria, FluLaval, Fluzone, Fluvirin, Fluarix, Agriflu(>= 18 yo)) Fluzone (>3 yrs.) [GCS161] Influenza, seasonal, inject able Seasonal influenza vaccine, injectable, containing preservative, for > 3 years old (Afluria, FluLaval, Fluzone, Fluvirin, Fluarix, Agriflu(>= 18 yo)) Fluzone (>3 yrs.) [YUA753] Influenza, seasonal, inject able Vital Signs Date [...] 7.9 % 4.3-6.0 sodium, serum 139 mmol/L 706-986 5510/02/04 potassium, serum 5.4 mmol/L 3.5-5.2 chloride, serum [...] Panel - Chemistry sodium, serum 138 mmol/L 495-101 2643/11/23 carbon dioxide, venous blood 32.4 mmol/L 21.0-32 .0 potassium, serum 5.7 mmol/L 3.5-5.2 chloride, serum 98 mmol/L 98-107 blood glucose 136 mg/dL 65-110 urea nitrogen, blood 18 mg/dL 7-18 creatinine, serum 1.71 mg/dL 0.55-1.30 alanine aminotransferase (SGPT), serum 71 U/L 12-78 aspartate aminotransferase (SGOT), serum 34 U/L 15-37 calcium, serum 9.4 mg/dL 8.5-10.1 bilirubin, serum, total 0.40 mg/dL 0.00-1.00 cholesterol, serum 405 mg/dL 956-985 7079/11/23 triglyceride, serum, fasting 709 mg/dL 30-200 HDL [...] mg/dL Encounters Code Encounter Date Provider Facility CPT-40975 Level 4 Est. Patient 16:01:48 CDT Baltazar Childers MD [facility] CPT-21496 Level 4 Est. Patient 16:54:07 NURSE ASSISTANT Baltazar Childers MD [facility] CPT-47644 Level 4 Est. Patient 15:42:12 CDT Baltazar Childers MD [facility] CPT-97497 Level 4 Est. Patient 11:29:55 CDT Baltazar Childers MD [facility] CPT-32865 Level 4 Est. Patient 14:15:19 CDT Baltazar Childers MD [facility] CPT-37323 Level 4 Est. Patient 12:20:13 CDT Baltazar Chliders MD [facility] CPT-36188 Level 4 Est. Patient 14:52:45 NURSE ASSISTANT Baltazar Childers MD [facility] CPT-50705 Level 4 Est. Patient 14:18:34 NURSE ASSISTANT Baltazar Childers MD [facility] CPT-32427 Level 4 Est. Patient 15:18:29 CDT Baltazar Childers MD [facility] CPT-00087 Level 3 Est. Patient 12:45:34 CDT Baltazar Childers MD [facility] CPT-70529 Level 3 Est. Patient 10:10:11 CDT Baltazar Childers MD [facility] CPT-26789 Level 3 Est. Patient 14:07:50 CDT Baltazar Childers MD [facility] CPT-66525 Level 4 Est. Patient 12:26:10 NURSE ASSISTANT Baltazar Childers MD [facility] CPT-71139 Level 4 Est. Patient 14:45:38 CDT Baltazar Childers MD [facility] CPT-16669 Level 4 New Patient 12:30:48 CDT Baltazar hinton MD [facility] Procedures Code Procedure Name Date Entry Date Standard Desc ription CPT-79007 Venipuncture Draw Fee 14:50:21 NURSE ASSISTANT CPT-07429 Immunization Single Admin 17:35:35 CDT 2014 CPT-55211 Fluzone Quadrivalent preservative free ( >=3yrs.) 17:35:35 CDT CPT-97222 Venipuncture Draw Fee 12:10:27 NURSE ASSISTANT CPT-36878 Fluzone Quadrivalent Intramuscular Suspe nsion 0.5 ML 10:49:13 CDT CPT-74754 First Vx Component - Ix admi n via ID IM or jet inj without physician counseling 15:17:19 NURSE ASSISTANT CPT-00121 Pneumovax 15:17:19 NURSE ASSISTANT CPT-84707 Pneumovax 14:52:45 NURSE ASSISTANT CPT-31036 Venipuncture Draw Fee 14:06:30 NURSE ASSISTANT CPT-000 Give Appropriate Flu Vaccine 14:18:34 NURSE ASSISTANT 2 CPT-70575 Administration single or combination vac cine inc oral 14:46:00 NURSE ASSISTANT CPT-41570 Influenza split virus > age 3 14:46:00 NURSE ASSISTANT CPT-OV Office Visit 19:13:16 CDT CPT-58990 Zostavax 18:41:56 CDT CPT-29186 Administration single or combination vac cine inc oral 12:56:39 CDT CPT-14449 Zoster Vaccine (Zostavax) 12:56:39 CDT 2012 CPT-54009 Venipuncture Draw Fee 10:58:57 CDT CPT-14583 Sono pelvis non OB uterus ovaries cervix 17:45:04 CDT CPT-39780 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
--- OUTSIDE RECORDS SUMMARY | 2019-10-27 13:24 | XMS REPORT | Clinical Summary ---
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 Benign neoplasm of colon PERIPHERAL NEUROPATHY 356.9 [...] 1 tablet daily for 4 days AZITHROMYCIN 46023910808 Active Baltazar Wayne Active LANTUS SOLOSTAR 100 UNIT/ML SC SOPN 30 units SC daily INSULIN GLARGINE 87726048398 Active Baltazar Childers MD Active AMLODIPINE BESYLATE 5 MG ORAL TABS 1 tab daily for HTN AMLODIPINE BESYLATE 94195136280 Active Baltazar Childers MD Active SYNTHROID 0.1 MG TAB 1 tablet by mouth daily LE VOTHYROXINE SODIUM 39009633864 Active Baltazar Childers MD Active GLIPIZIDE 10 MG TAB take 2 tablets twice daily GLIPIZIDE 78524776379 Active Baltazar Childers MD Active SUCRALFATE 1 GM TABS 1 four times a day to coat the stomach 2015 SUCRALFATE 33936617700 No Longer Active Baltaazr Childers MD Active PEN NEEDLES 31G X 6 MM MISC use 1 daily INSULIN PEN NEEDLE 08710989361 Active Gato Rae MD Active TOUJEO SOLOSTAR 300 UNIT/ML SC SOPN 10 units SC daily INSULIN GLARGINE 89825290220 No Longer Active Martiat ARGUETA Active NAPROXEN SODIUM 220 MG ORAL TABS 1 three times a day as needed 2 NAPROXEN SODIUM 32565406730 No Longer Active Baltazar Childers MD Active ATORVASTATIN CALCIUM 20 MG ORAL TABS Take 1 tab daily ATORVASTATIN CALCIUM 23270344545 Active Baltazar Childers MD Active FUROSEMIDE 40 MG TABS Take one by mouth daily FUROSEMIDE 15260556061 Active Baltazar Childers MD Active LISINOPRIL 20 MG TABS Take one by mouth daily at bedtime LISINOPRIL 83536718478 No Longer Active Baltazar Childers MD Active ONETOUCH ULTRA BLUE STRP Test twice a day GLUCO SE BLOOD 74064047290 No Longer Active Baltazar Childers MD Active TRUEPLUS LANCETS 33G MISC Test twice a day LANCET S 22261675098 Active KENDALL Juarez Active TRUEDRAW LANCING DEVICE MISC Test twice a day L ANCET DEVICES 10205795432 Active Baltazar Childers MD Active TRUETRACK TEST STRP Test twice a day GLUCOSE BLOO D 50773795389 Active KENDALL Juarez Active TRUETRACK BLOOD GLUCOSE W/DEVICE KIT Test twice a day BLOOD GLUCOSE MONITORING SUPPL 05115765712 Active Baltazar Childers MD Activ e HYDROCODONE-ACETAMINOPHEN 7.5-325 MG TABS Take 1 tab every 6-8 hour s PRN HYDROCODONE-ACETAMINOPHEN 86439977971 Active Baltazar Childers MD Active NORTRIPTYLINE HCL 50 MG CAPS 1 every night for neuropathy 4 NORTRIPTYLINE HCL 09772871741 Active Baltazar Childers MD Acti ve GABAPENTIN 300 MG CAPS 1 three times a day GABAPE NTIN 34183811238 Active Baltazar Childers MD Active GABAPENTIN 300 MG CAPS 1 po qd x 2 days, then 1 po BID x 2 d ays, then 1 po TID GABAPENTIN 70320806116 No Longer Active Baltazar silverman MD Active TRAMADOL HCL 50 MG TABS 1 twice a day as needed for pain TRAMADOL HCL 87213112903 Active Baltazar Childers MD Active NAPROXEN 500 MG TABS 1 tablet by mouth twice daily NAPROXEN 83889613238 No Longer Active Baltazar Childers MD Active PROAIR HFA 108 (90 BASE) MCG/ACT AERS 2 puffs four times a d ay as needed ALBUTEROL SULFATE 93103966523 Active Baltazar Childers MD Active DEPO-TESTOSTERONE 200 MG/ML OIL as directed RUFINO TOSTERONE CYPIONATE 11231648171 No Longer Active Baltazar Childers MD Active LIPITOR 20 MG TABS Take one by mouth daily in evening ATORVASTATIN CALCIUM 71632375050 No Longer Active Baltazar Childers MD Activ e CRESTOR 10 MG TABS 1 by mouth every day R OSUVASTATIN CALCIUM 83676133435 No Longer Active Baltazar Childers MD Activ e PHENTERMINE HCL 37.5 MG TABS Take one by mouth daily 2 PHENTERMINE HCL 93507305506 No Longer Active Baltazar Childers MD Activ e ROBAXIN-750 750 MG TABS Take one by mouth daily ME THOCARBAMOL 76704196663 Active Baltazar Childers MD Active TIZANIDINE HCL 4 MG TABS 1 daily as needed for muscle spasm 2011 TIZANIDINE HCL 27340821568 No Longer Active Dawnatung Salazar RN Active [id number] 50-325-40 MG TABS 1 four time s a day as needed for heacache [id number] 52253903896 Active Bethrenetta Carr KENDALL Active SUMATRIPTAN SUCCINATE 100 MG TABS 1 tablet by mouth at onset of migraine as needed SUMATRIPTAN SUCCINATE 11399140402 Active Baltazar bynum MD Active LORATADINE 10 MG TABS Take one by mouth daily LORATADINE 60574157826 Active Baltazar Childers MD Active OMEPRAZOLE 20 MG CPDR Take one by mouth daily OMEPRAZOLE 35227538196 Active Baltazar Childers MD Active HYDROXYZINE HCL 25 MG TABS Take one by mouth daily HYDROXYZINE HCL 14687955333 Active Baltazar Childers MD Active ALPRAZOLAM 1 MG TABS 1 tablet by mouth daily at bedtime for restles s leg ALPRAZOLAM 91870255988 Active Baltazar Childers MD Active METFORMIN HCL 1000 MG TABS Take one by mouth twice daily METFORMIN HCL 54090718638 Active Baltazar Childers MD Active TIZANIDINE HCL 4 MG TABS 1 daily as needed for muscle spasm 2011 TIZANIDINE HCL 4 MG TABS 923054 TIZANIDINE HCL Inactiv e PHENTERMINE HCL 37.5 MG TABS Take one by mouth daily 2 PHENTERMINE HCL 37.5 MG TABS 099606 PHENTERMINE HCL Inactive CRESTOR 10 MG TABS 1 by mouth every day C RESTOR 10 MG TABS 376071 ROSUVASTATIN CALCIUM Inactive LIPITOR 20 MG TABS Take one by mouth daily in evening LIPITOR 20 MG TABS 839841 ATORVASTATIN CALCIUM Inactive DEPO-TESTOSTERONE 200 MG/ML OIL as directed 8 DEPO-TESTOSTERONE 200 MG/ML OIL 898358 TESTOSTERONE CYPIONATE Inactive NAPROXEN 500 MG TABS 1 tablet by mouth twice daily 201 07/27/22 NAPROXEN 500 MG TABS 582955 NAPROXEN Inactive GABAPENTIN 300 MG CAPS 1 po qd x 2 days, then 1 po BID x 2 d ays, then 1 po TID GABAPENTIN 300 MG [facility] 142830 GABAPENTIN Inact amie ONETOUCH ULTRA BLUE STRP Test twice a day ONETOUCH ULTRA BLUE STRP GLUCOSE BLOOD Inactive NAPROXEN SODIUM 220 MG ORAL TABS 1 three times a day as needed 2 NAPROXEN SODIUM 220 MG ORAL TABS 487241 NAPROXEN SODIUM Inactive TOUJEO SOLOSTAR 300 UNIT/ML SC SOPN 10 units SC daily TOUJEO SOLOSTAR 300 UNIT/ML SC SOPN INSULIN GLARGINE Inac tive SUCRALFATE 1 GM TABS 1 four times a day to coat the stomach 2015 SUCRALFATE 1 GM TABS 064228 SUCRALFATE Inactive Immunizations Vaccine Administration Date Value Standard Floyd cription pneumococcal immunization administered Pneumovax 23 [CVX33] pneumococcal polysaccharide vaccine, 23 valent Seasonal influenza vaccine, injectable, containing preservative, for > 3 years old (Afluria, FluLaval, Fluzone, Fluvirin, Fluarix, Agriflu(>= 18 yo)) Fluzone (>3 yrs.) [[id number]] Influenza, seasonal, inject able Seasonal influenza vaccine, injectable, containing preservative, for > 3 years old (Afluria, FluLaval, Fluzone, Fluvirin, Fluarix, Agriflu(>= 18 yo)) Fluzone (>3 yrs.) [KXG501] Influenza, seasonal, inject able Vital Signs Date [...] C - Chemistry sodium, serum 143 mmol/L 613-726 5599/06/19 potassium, serum 5.9 mmol/L 3.5-5.2 chloride, serum 105 mmol/L 98-107 carbon dioxide, venous blood 30.2 mmol/L 21.0-32 .0 blood glucose 189 mg/dL 65-110 calcium, serum 9.7 mg/dL 8.5-10.1 urea nitrogen, blood 37 mg/dL 7-18 creatinine, serum 2.11 mg/dL 0.55-1.30 hemoglobin A1C, blood, as % of total hemoglobin 8.2 % 4.3-6.0 Lab Report: CBC, Renal Panel - Chemistry sodium, serum 142 mmol/L 678-101 7727/08/11 potassium, serum 4.8 mmol/L 3.5-5.2 chloride, serum [...] Panel - Chemistry sodium, serum 143 mmol/L 648-202 8663/12/19 carbon dioxide, venous blood 32.5 mmol/L 21.0-32 .0 potassium, serum 4.9 mmol/L 3.5-5.2 chloride, serum 101 mmol/L 98-107 blood glucose 129 mg/dL 65-110 urea nitrogen, blood 18 mg/dL 7-18 creatinine, serum 1.79 mg/dL 0.55-1.30 alanine aminotransferase (SGPT), serum 34 U/L 12-78 aspartate aminotransferase (SGOT), serum 26 U/L 15-37 calcium, serum 8.9 mg/dL 8.5-10.1 bilirubin, serum, total 0.30 mg/dL 0.00-1.00 cholesterol, serum 214 mg/dL 610-237 3338/12/19 triglyceride, serum, fasting 351 mg/dL 30-200 HDL [...] 4.3-6.0 Encounters Code Encounter Date Provider Facility CPT-47197 Level 4 Est. Patient 12:25:11 CDT Baltazar Childers MD [facility] CPT-70502 Level 4 Est. Patient 14:22:31 CDT Baltazar Childers MD [facility] CPT-76640 Level 4 Est. Patient 15:44:38 CDT Shonna Parker APRN [facility] CPT-90710 Level 4 Est. Patient 11:34:17 CDT Baltazar Childers MD [facility] CPT-56221 Level 3 Est. Patient 16:40:40 CDT Baltazar Childers MD [facility] CPT-70234 Level 4 Est. Patient 10:41:24 CDT Baltazar Childers MD [facility] CPT-31033 Level 4 Est. Patient 16:01:48 CDT Baltazar Childers MD [facility] CPT-51762 Level 4 Est. Patient 16:54:07 PETAL CUTTER Baltazar Childers MD [facility] CPT-16200 Level 4 Est. Patient 15:42:12 CDT Baltazar Childers MD [facility] CPT-95368 Level 4 Est. Patient 11:29:55 CDT Baltazar Childers MD [facility] CPT-11470 Level 4 Est. Patient 14:15:19 CDT Baltazar Childers MD [facility] CPT-88753 Level 4 Est. Patient 12:20:13 CDT Baltazar Childers MD [facility] CPT-97303 Level 4 Est. Patient 14:52:45 PETAL CUTTER Baltazar Childers MD [facility] CPT-25167 Level 4 Est. Patient 14:18:34 PETAL CUTTER Baltazar Childers MD [facility] CPT-98233 Level 4 Est. Patient 15:18:29 CDT Baltazar Childers MD [facility] CPT-27427 Level 3 Est. Patient 12:45:34 CDT Baltazar Childers MD [facility] CPT-08013 Level 3 Est. Patient 10:10:11 CDT Baltazar Childers MD [facility] CPT-01482 Level 3 Est. Patient 14:07:50 CDT Baltazar Childers MD [facility] CPT-90751 Level 4 Est. Patient 12:26:10 PETAL CUTTER Baltazar Childers MD [facility] CPT-74772 Level 4 Est. Patient 14:45:38 CDT Baltazar Childers MD [facility] CPT-38329 Level 4 New Patient 12:30:48 CDT Balatzar hinton MD [facility] Procedures Code Procedure Name Date Entry Date Standard Desc ription CPT-28665 Venipuncture Draw Fee 12:04:12 CDT CPT-45605 Lipid - LAB USE ONLY 17:39:15 PETAL CUTTER 9 CPT-83297 HGBA1C - LAB USE ONLY 17:39:15 PETAL CUTTER CPT-99350 CMP - LAB USE ONLY 17:39:14 PETAL CUTTER CPT-21740 Venipuncture Draw Fee 17:39:14 PETAL CUTTER CPT-44689 First Vx - Ix admin via ID I M or jet injects without counseling by physician 16:55:17 PETAL CUTTER CPT-34723 Fluzone Quadrivalent Intramuscular Suspe nsion 0.5 ML 16:55:17 PETAL CUTTER CPT-08662 Renal Panel - LAB USE ONLY 17:39:20 CDT 201 10/31/07 CPT-39202 CBC - LAB USE ONLY 17:39:20 CDT CPT-64670 Venipuncture Draw Fee 17:39:20 CDT CPT-04554 Venipuncture Draw Fee 14:33:30 CDT CPT-08555 Renal Panel - LAB USE ONLY 14:33:30 CDT 201 10/31/07 CPT-06700 CBC - LAB USE ONLY 14:33:29 CDT CPT-70971 Venipuncture Draw Fee 14:50:21 PETAL CUTTER CPT-68765 Immunization Single Admin 17:35:35 CDT 2014 CPT-31719 Fluzone Quadrivalent preservative free ( >=3yrs.) 17:35:35 CDT CPT-51332 Venipuncture Draw Fee 12:10:27 PETAL CUTTER CPT-16519 Fluzone Quadrivalent Intramuscular Suspe nsion 0.5 ML 10:49:13 CDT CPT-87635 First Vx Component - Ix admi n via ID IM or jet inj without physician counseling 15:17:19 PETAL CUTTER CPT-40051 Pneumovax 23 15:17:19 PETAL CUTTER CPT-27217 Pneumovax 14:52:45 PETAL CUTTER CPT-26643 Venipuncture Draw Fee 14:06:30 PETAL CUTTER CPT-000 Give Appropriate Flu Vaccine 14:18:34 PETAL CUTTER 2 CPT-07546 Administration single or combination vac cine inc oral 14:46:00 PETAL CUTTER CPT-41052 Influenza split virus > age 3 14:46:00 PETAL CUTTER CPT-OV Office Visit 19:13:16 CDT CPT-88752 Zostavax 18:41:56 CDT CPT-56796 Administration single or combination vac cine inc oral 12:56:39 CDT CPT-92058 Zoster Vaccine (Zostavax) 12:56:39 CDT 2012 CPT-33219 Venipuncture Draw Fee 10:58:57 CDT CPT-59572 Sono pelvis non OB uterus ovaries cervix 17:45:04 CDT CPT-41209 Sono retroperitoneal complete kidneys an d bladder 17:14:36 CDT CPT-OV Office Visit 14:59:38 PETAL CUTTER CPT-J1070 Depo Testosterone 100 mg 14:50:13 CDT 03/05 CPT-25960 Abx/Therapy Injection 14:50:13 CDT CPT-50891 Administration single or combination vac cine inc oral 14:34:43 CDT CPT-87085 Influenza split virus > age 3 14:34:43 CDT CPT-J1070 Depo Testosterone 100 mg 17:37:13 CDT 01/11 CPT-07796 Abx/Therapy Injection 17:37:13 CDT CPT-92922 Venipuncture Draw Fee 16:30:13 CDT CPT-61740 Venipuncture Draw Fee 16:29:43 CDT CPT-J1070 Depo Testosterone 100 mg 14:45:38 CDT 01/11
--- OUTSIDE RECORDS SUMMARY | 2019-10-27 13:24 | XMS REPORT | Clinical Summary ---
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 Benign neoplasm of colon PERIPHERAL NEUROPATHY 356.9 [...] y atherosclerosis of unspecified type of vessel, [place] [...] MISC Test twice a day LANCET S 46762543506 Active Baltazar Childers MD Active TRUEDRAW LANCING DEVICE MISC Test twice a day L ANCET DEVICES 71814526982 Active Baltazar Childers MD Active TRUETRACK TEST STRP Test twice a day GLUCOSE BLOO D 22672823207 Active Baltazar Childers MD Active TRUETRACK BLOOD GLUCOSE W/DEVICE KIT Test twice a day BLOOD GLUCOSE MONITORING SUPPL 69359908551 Active Bella Suarez MILK TREATER Active HYDROCODONE-ACETAMINOPHEN 7.5-325 MG TABS Take 1 tab every 6-8 hour s PRN HYDROCODONE-ACETAMINOPHEN 49607116798 Active Baltazar Childers MD Active NORTRIPTYLINE HCL 50 MG CAPS 1 every night for neuropathy 4 NORTRIPTYLINE HCL 65049624818 Active Baltazar Childers MD Acti ve GABAPENTIN 300 MG CAPS 1 three times a day GABAPE NTIN 23731535982 Active Baltazar Childers MD Active GABAPENTIN 300 MG CAPS 1 po qd x 2 days, then 1 po BID x 2 d ays, then 1 po TID GABAPENTIN 20736327237 No Longer Active Baltazar silverman MD Active TRAMADOL HCL 50 MG TABS 1 twice a day as needed for pain TRAMADOL HCL 24659527584 Active Baltazar Childers MD Active NAPROXEN 500 MG TABS 1 tablet by mouth twice daily NAPROXEN 87890291850 No Longer Active Baltazar Childers MD Active PROAIR HFA 108 (90 BASE) MCG/ACT AERS 2 puffs four times a d ay as needed ALBUTEROL SULFATE 44228161598 Active Baltazar Childers MD Active DEPO-TESTOSTERONE 200 MG/ML OIL as directed RUFINO TOSTERONE CYPIONATE 32080762064 No Longer Active Baltazar Childers MD Active LIPITOR 20 MG TABS Take one by mouth daily in evening ATORVASTATIN CALCIUM 76336004773 No Longer Active Baltazar Childers MD Activ e CRESTOR 10 MG TABS 1 by mouth every day R OSUVASTATIN CALCIUM 25870455594 No Longer Active Baltazar Childers MD Activ e PHENTERMINE HCL 37.5 MG TABS Take one by mouth daily 2 PHENTERMINE HCL 98291228726 No Longer Active Baltazar Childers MD Activ e ROBAXIN-750 750 MG TABS Take one by mouth daily ME THOCARBAMOL 99626445582 Active Baltazar Childers MD Active TIZANIDINE HCL 4 MG TABS 1 daily as needed for muscle spasm 2011 TIZANIDINE HCL 99936480550 No Longer Active Dawna Salazar RN Active KijubiTOUCH ULTRA BLUE STRP Test twice a day GLUCO SE BLOOD 98936150580 Active Baltazar Childers MD Active TVPOZXOWPF-WLTK-LXALVMHW 50-325-40 MG TABS 1 four time s a day as needed for heacache [id number] 51927272215 Active Baltazar Childers MD Active SUMATRIPTAN SUCCINATE 100 MG TABS 1 tablet by mouth at onset of migraine as needed SUMATRIPTAN SUCCINATE 21754562571 Active Baltazar barron MD Active LORATADINE 10 MG TABS Take one by mouth daily LORATADINE 49787032897 Active Baltazar Childers MD Active FUROSEMIDE 40 MG TABS Take one by mouth daily FUROSEMIDE 63222518326 Active Baltazar Childers MD Active LISINOPRIL 20 MG TABS Take one by mouth daily at bedtime LISINOPRIL 80102775683 Active Baltazar Childers MD Active OMEPRAZOLE 20 MG CPDR Take one by mouth daily OMEPRAZOLE 48848288634 Active Baltazar Childers MD Active HYDROXYZINE HCL 25 MG TABS Take one by mouth daily HYDROXYZINE HCL 48850390657 Active Baltazar Childers MD Active GLIPIZIDE 10 MG TABS 1 tablet by mouth twice daily GLIPIZIDE 78311404208 Active Baltazar Childers MD Active ALPRAZOLAM 1 MG TABS 1 tablet by mouth daily at bedtime for restles s leg ALPRAZOLAM 88372193231 Active Baltazar Childers MD Active METFORMIN HCL 1000 MG TABS Take one by mouth twice daily METFORMIN HCL 37565217006 Active Baltazar Childers MD Active TIZANIDINE HCL 4 MG TABS 1 daily as needed for muscle spasm 2011 TIZANIDINE HCL 4 MG TABS 833768 TIZANIDINE HCL Inactiv e PHENTERMINE HCL 37.5 MG TABS Take one by mouth daily 2 PHENTERMINE HCL 37.5 MG TABS 543297 PHENTERMINE HCL Inactive CRESTOR 10 MG TABS 1 by mouth every day C RESTOR 10 MG TABS ROSUVASTATIN CALCIUM Inactive LIPITOR 20 MG TABS Take one by mouth daily in evening LIPITOR 20 MG TABS 552773 ATORVASTATIN CALCIUM Inactive DEPO-TESTOSTERONE 200 MG/ML OIL as directed 8 DEPO-TESTOSTERONE 200 MG/ML OIL 331270 TESTOSTERONE CYPIONATE Inactive NAPROXEN 500 MG TABS 1 tablet by mouth twice daily 201 07/27/22 NAPROXEN 500 MG TABS 851932 NAPROXEN Inactive GABAPENTIN 300 MG CAPS 1 po qd x 2 days, then 1 po BID x 2 d ays, then 1 po TID GABAPENTIN 300 MG CAPS 094688 GABAPENTIN Inact amie Immunizations Vaccine Administration Date Value Standard Floyd cription pneumococcal immunization administered Pneumovax 23 [CVX33] pneumococcal polysaccharide vaccine, 23 valent Seasonal influenza vaccine, injectable, containing preservative, for > 3 years old (Afluria, FluLaval, Fluzone, Fluvirin, Fluarix, Agriflu(>= 18 yo)) Fluzone (>3 yrs.) [UHT523] Influenza, seasonal, inject able Seasonal influenza vaccine, injectable, containing preservative, for > 3 years old (Afluria, FluLaval, Fluzone, Fluvirin, Fluarix, Agriflu(>= 18 yo)) Fluzone (>3 yrs.) [CVO836] Influenza, seasonal, inject able Vital Signs Date [...] Panel - Chemistry sodium, serum 139 mmol/L 898-977 7872/01/20 potassium, serum 5.3 mmol/L 3.5-5.2 chloride, serum [...] mg/g mg/g{creat} 0-29 cholesterol, serum 319 mg/dL 632-417 0106/08/21 triglyceride, serum, fasting 546 mg/dL 30-200 HDL cholesterol, serum 39 mg/dL 32-96 LDL cholesterol, serum 167.00 mg/dL 5.00-130.00 hemoglobin A1C, blood, as % of total hemoglobin 7.7 % 4.3-6.0 sodium, serum 138 mmol/L 998-892 9362/08/21 potassium, serum 4.3 mmol/L 3.5-5.2 chloride, serum [...] 0-19 Encounters Code Encounter Date Provider Facility CPT-84085 Level 4 Est. Patient 11:29:55 CDT Baltazar Childers MD [facility] CPT-52885 Level 4 Est. Patient 14:15:19 CDT Baltazar Childers MD [facility] CPT-82963 Level 4 Est. Patient 12:20:13 CDT Baltazar Childers MD [facility] CPT-33798 Level 4 Est. Patient 14:52:45 OPERATION SUPERVISOR Baltazar Childers MD [facility] CPT-64480 Level 4 Est. Patient 14:18:34 OPERATION SUPERVISOR Baltazar Childers MD [facility] CPT-98232 Level 4 Est. Patient 15:18:29 CDT Baltazar Childers MD [facility] CPT-25305 Level 3 Est. Patient 12:45:34 CDT Baltazar Childers MD [facility] CPT-43410 Level 3 Est. Patient 10:10:11 CDT Baltazar Childers MD [facility] CPT-34782 Level 3 Est. Patient 14:07:50 CDT Baltazar Childers MD [facility] CPT-63080 Level 4 Est. Patient 12:26:10 OPERATION SUPERVISOR Baltazar Childers MD [facility] CPT-24885 Level 4 Est. Patient 14:45:38 CDT Baltazar Childers MD [facility] CPT-25640 Level 4 New Patient 12:30:48 CDT Baltazar hinton MD [facility] Procedures Code Procedure Name Date Entry Date Standard Desc ription CPT-81503 Venipuncture Draw Fee 12:10:27 OPERATION SUPERVISOR CPT-84225 Fluzone Quadrivalent Intramuscular Suspe nsion 0.5 ML 10:49:13 CDT CPT-52645 First Vx Component - Ix admi n via ID IM or jet inj without physician counseling 15:17:19 OPERATION SUPERVISOR CPT-77207 Pneumovax 23 15:17:19 OPERATION SUPERVISOR CPT-78543 Pneumovax 14:52:45 OPERATION SUPERVISOR CPT-23582 Venipuncture Draw Fee 14:06:30 OPERATION SUPERVISOR CPT-000 Give Appropriate Flu Vaccine 14:18:34 OPERATION SUPERVISOR 2 CPT-10383 Administration single or combination vac cine inc oral 14:46:00 OPERATION SUPERVISOR CPT-23011 Influenza split virus > age 3 14:46:00 OPERATION SUPERVISOR CPT-OV Office Visit 19:13:16 CDT CPT-62770 Zostavax 18:41:56 CDT CPT-67516 Administration single or combination vac cine inc oral 12:56:39 CDT CPT-82162 Zoster Vaccine (Zostavax) 12:56:39 CDT 2012 CPT-73286 Venipuncture Draw Fee 10:58:57 CDT CPT-93562 Sono pelvis non OB uterus ovaries cervix 17:45:04 CDT CPT-22285 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
--- OUTSIDE RECORDS SUMMARY | 2019-10-27 13:24 | XMS REPORT | Clinical Summary ---
Author Author Admin, Elba Lance [facility] Address Unknown Phone Unavailable Allergies, Adverse Reactions, [...] libido COLON POLYPS 211.3 Resolved Lolis Thomas [employer] Benign neoplasm of colon PERIPHERAL NEUROPATHY 356.9 [...] 1 tab daily for HTN AMLODIPINE BESYLATE 26920885750 Active KENDALL Juarez Active SYNTHROID 0.1 MG TAB 1 tablet by mouth daily LE VOTHYROXINE SODIUM 93595214574 Active Shonna Parker APRN Active GLIPIZIDE 10 MG TAB take 2 tablets twice daily GLIPIZIDE 69712983737 Active Baltazar Childers MD Active SUCRALFATE 1 GM TABS 1 four times a day to coat the stomach 2015 SUCRALFATE 21373588024 No Longer Active Baltazar Childers MD Active PEN NEEDLES 31G X 6 MM MISC use 1 daily INSULIN PEN NEEDLE 37528772805 Active Gato Rae MD Active TOUJEO SOLOSTAR 300 UNIT/ML SC SOPN 10 units SC daily INSULIN GLARGINE 34625969919 No Longer Active [place] ARGUETA Active LANTUS SOLOSTAR 100 UNIT/ML SC SOPN 10 units SC daily INSULIN GLARGINE 66223753981 Active KENDALL Juarez Active NAPROXEN SODIUM 220 MG ORAL TABS 1 three times a day as needed 2 NAPROXEN SODIUM 86666452468 No Longer Active Baltazar Childers MD Active ATORVASTATIN CALCIUM 20 MG ORAL TABS Take 1 tab daily ATORVASTATIN CALCIUM 55442480330 Active Baltazar Childers MD Active FUROSEMIDE 40 MG TABS Take one by mouth daily FUROSEMIDE 59281162307 Active Baltazar Childers MD Active LISINOPRIL 20 MG TABS Take one by mouth daily at bedtime LISINOPRIL 97762672640 No Longer Active Baltazar Childers MD Active ONETOUCH ULTRA BLUE STRP Test twice a day GLUCO SE BLOOD 66289622368 No Longer Active Baltazar Childers MD Active TRUEPLUS LANCETS 33G MISC Test twice a day LANCET S 59869655753 Active KENDALL Juarez Active TRUEDRAW LANCING DEVICE MISC Test twice a day L ANCET DEVICES 17430989311 Active Baltazar Childers MD Active TRUETRACK TEST STRP Test twice a day GLUCOSE BLOO D 68845764699 Active KENDALL Juarez Active TRUETRACK BLOOD GLUCOSE W/DEVICE KIT Test twice a day BLOOD GLUCOSE MONITORING SUPPL 16777940631 Active Baltazar Childers MD Activ e HYDROCODONE-ACETAMINOPHEN 7.5-325 MG TABS Take 1 tab every 6-8 hour s PRN HYDROCODONE-ACETAMINOPHEN 15438101770 Active Baltazar Childers MD Active NORTRIPTYLINE HCL 50 MG CAPS 1 every night for neuropathy 4 NORTRIPTYLINE HCL 14474656686 Active Baltazar Childers MD Acti ve GABAPENTIN 300 MG CAPS 1 three times a day GABAPE NTIN 01760424592 Active Baltazar Childers MD Active GABAPENTIN 300 MG CAPS 1 po qd x 2 days, then 1 po BID x 2 d ays, then 1 po TID GABAPENTIN 64387038575 No Longer Active Baltazar silverman MD Active TRAMADOL HCL 50 MG TABS 1 twice a day as needed for pain TRAMADOL HCL 14662958989 Active Baltazar Childers MD Active NAPROXEN 500 MG TABS 1 tablet by mouth twice daily NAPROXEN 90689448871 No Longer Active Baltazar Childers MD Active PROAIR HFA 108 (90 BASE) MCG/ACT AERS 2 puffs four times a d ay as needed ALBUTEROL SULFATE 67103480983 Active Baltazar Childers MD Active DEPO-TESTOSTERONE 200 MG/ML OIL as directed RUFINO TOSTERONE CYPIONATE 06473393360 No Longer Active Baltazar Childers MD Active LIPITOR 20 MG TABS Take one by mouth daily in evening ATORVASTATIN CALCIUM 24521625850 No Longer Active Baltazar Childers MD Activ e CRESTOR 10 MG TABS 1 by mouth every day R OSUVASTATIN CALCIUM 35465091237 No Longer Active Baltazar Childers MD Activ e PHENTERMINE HCL 37.5 MG TABS Take one by mouth daily 2 PHENTERMINE HCL 66628813529 No Longer Active Baltazar Childers MD Activ e ROBAXIN-750 750 MG TABS Take one by mouth daily ME THOCARBAMOL 05475967683 Active Baltazar Childers MD Active TIZANIDINE HCL 4 MG TABS 1 daily as needed for muscle spasm 2011 TIZANIDINE HCL 98702788491 No Longer Active Dawna Salazar RN Active [id number] 50-325-40 MG TABS 1 four time s a day as needed for heacache [id number] 65090772975 Active Baltazar Childers MD Active SUMATRIPTAN SUCCINATE 100 MG TABS 1 tablet by mouth at onset of migraine as needed SUMATRIPTAN SUCCINATE 96241093662 Active Shonna richey APRN Active LORATADINE 10 MG TABS Take one by mouth daily LORATADINE 43569962161 Active Beth Carr CÉSARTung Active OMEPRAZOLE 20 MG CPDR Take one by mouth daily OMEPRAZOLE 96269085164 Active Baltazar Childers MD Active HYDROXYZINE HCL 25 MG TABS Take one by mouth daily HYDROXYZINE HCL 20590209426 Active Baltazar Childers MD Active ALPRAZOLAM 1 MG TABS 1 tablet by mouth daily at bedtime for restles s leg ALPRAZOLAM 90074314829 Active Baltazar Childers MD Active METFORMIN HCL 1000 MG TABS Take one by mouth twice daily METFORMIN HCL 90379655682 Active Baltazar Childers MD Active TIZANIDINE HCL 4 MG TABS 1 daily as needed for muscle spasm 2011 TIZANIDINE HCL 4 MG TABS 892916 TIZANIDINE HCL Inactiv e PHENTERMINE HCL 37.5 MG TABS Take one by mouth daily 2 PHENTERMINE HCL 37.5 MG TABS 607599 PHENTERMINE HCL Inactive CRESTOR 10 MG TABS 1 by mouth every day C RESTOR 10 MG TABS 770770 ROSUVASTATIN CALCIUM Inactive LIPITOR 20 MG TABS Take one by mouth daily in evening LIPITOR 20 MG TABS 185893 ATORVASTATIN CALCIUM Inactive DEPO-TESTOSTERONE 200 MG/ML OIL as directed 8 DEPO-TESTOSTERONE 200 MG/ML OIL 557928 TESTOSTERONE CYPIONATE Inactive NAPROXEN 500 MG TABS 1 tablet by mouth twice daily 201 07/27/22 NAPROXEN 500 MG TABS 930213 NAPROXEN Inactive GABAPENTIN 300 MG CAPS 1 po qd x 2 days, then 1 po BID x 2 d ays, then 1 po TID GABAPENTIN 300 MG CAPS 455576 GABAPENTIN Inact amie ONETOUCH ULTRA BLUE STRP Test twice a day ONETOUCH ULTRA BLUE STRP GLUCOSE BLOOD Inactive NAPROXEN SODIUM 220 MG ORAL TABS 1 three times a day as needed 2 NAPROXEN SODIUM 220 MG ORAL TABS 908522 NAPROXEN SODIUM Inactive TOUJEO SOLOSTAR 300 UNIT/ML SC SOPN 10 units SC daily TOUJEO SOLOSTAR 300 UNIT/ML SC SOPN INSULIN GLARGINE Inac tive SUCRALFATE 1 GM TABS 1 four times a day to coat the stomach 2015 SUCRALFATE 1 GM TABS 657937 SUCRALFATE Inactive Immunizations Vaccine Administration Date Value Standard Floyd cription pneumococcal immunization administered Pneumovax 23 [CVX33] pneumococcal polysaccharide vaccine, 23 valent Seasonal influenza vaccine, injectable, containing preservative, for > 3 years old (Afluria, FluLaval, Fluzone, Fluvirin, Fluarix, Agriflu(>= 18 yo)) Fluzone (>3 yrs.) [TYT887] Influenza, seasonal, inject able Seasonal influenza vaccine, injectable, containing preservative, for > 3 years old (Afluria, FluLaval, Fluzone, Fluvirin, Fluarix, Agriflu(>= 18 yo)) Fluzone (>3 yrs.) [QXT544] Influenza, seasonal, inject able Vital Signs Date [...] C - Chemistry sodium, serum 143 mmol/L 911-185 1883/06/19 potassium, serum 5.9 mmol/L 3.5-5.2 chloride, serum 105 mmol/L 98-107 carbon dioxide, venous blood 30.2 mmol/L 21.0-32 .0 blood glucose 189 mg/dL 65-110 calcium, serum 9.7 mg/dL 8.5-10.1 urea nitrogen, blood 37 mg/dL 7-18 creatinine, serum 2.11 mg/dL 0.55-1.30 hemoglobin A1C, blood, as % of total hemoglobin 8.2 % 4.3-6.0 Lab Report: Comp. Metabolic Panel, Lipid Panel - Chemistry sodium, serum 143 mmol/L 820-437 0146/12/19 carbon dioxide, venous blood 32.5 mmol/L 21.0-32 .0 potassium, serum 4.9 mmol/L 3.5-5.2 chloride, serum 101 mmol/L 98-107 blood glucose 129 mg/dL 65-110 urea nitrogen, blood 18 mg/dL 7-18 creatinine, serum 1.79 mg/dL 0.55-1.30 alanine aminotransferase (SGPT), serum 34 U/L 12-78 aspartate aminotransferase (SGOT), serum 26 U/L 15-37 calcium, serum 8.9 mg/dL 8.5-10.1 bilirubin, serum, total 0.30 mg/dL 0.00-1.00 cholesterol, serum 214 mg/dL 359-436 1441/12/19 triglyceride, serum, fasting 351 mg/dL 30-200 HDL [...] 4.3-6.0 Encounters Code Encounter Date Provider Facility CPT-04052 Level 4 Est. Patient 14:22:31 CDT Baltazar Childers MD [facility] CPT-45126 Level 4 Est. Patient 15:44:38 CDT Shonna Parker APRN [facility] CPT-31447 Level 4 Est. Patient 11:34:17 CDT Baltazar Childers MD [facility] CPT-78994 Level 3 Est. Patient 16:40:40 CDT Baltazar Childers MD [facility] CPT-49259 Level 4 Est. Patient 10:41:24 CDT Baltazar Childesr MD [facility] CPT-81111 Level 4 Est. Patient 16:01:48 CDT Baltazar Childers MD [facility] CPT-85958 Level 4 Est. Patient 16:54:07 CLIENT ADVISOR Baltazar Childers MD [facility] CPT-82350 Level 4 Est. Patient 15:42:12 CDT Baltazar Childers MD [facility] CPT-68057 Level 4 Est. Patient 11:29:55 CDT Baltazar Childers MD [facility] CPT-53740 Level 4 Est. Patient 14:15:19 CDT Baltazar Childers MD [facility] CPT-80714 Level 4 Est. Patient 12:20:13 CDT Baltazar Childers MD [facility] CPT-35167 Level 4 Est. Patient 14:52:45 CLIENT ADVISOR Baltazar Childers MD [facility] CPT-17710 Level 4 Est. Patient 14:18:34 CLIENT ADVISOR Baltazar Childers MD [facility] CPT-79907 Level 4 Est. Patient 15:18:29 CDT Baltazar Childers MD [facility] CPT-09706 Level 3 Est. Patient 12:45:34 CDT Baltazar Childers MD [facility] CPT-03540 Level 3 Est. Patient 10:10:11 CDT Baltazar Childers MD [facility] CPT-51035 Level 3 Est. Patient 14:07:50 CDT Baltazar Childers MD [facility] CPT-18737 Level 4 Est. Patient 12:26:10 CLIENT ADVISOR Baltazar Childers MD [facility] CPT-94245 Level 4 Est. Patient 14:45:38 CDT Baltazar Childers MD [facility] CPT-03341 Level 4 New Patient 12:30:48 CDT Baltazar hinton MD [facility] Procedures Code Procedure Name Date Entry Date Standard Desc ription CPT-96190 Venipuncture Draw Fee 12:04:12 CDT CPT-33921 Lipid - LAB USE ONLY 17:39:15 CLIENT ADVISOR 9 CPT-84621 HGBA1C - LAB USE ONLY 17:39:15 CLIENT ADVISOR CPT-71934 CMP - LAB USE ONLY 17:39:14 CLIENT ADVISOR CPT-28365 Venipuncture Draw Fee 17:39:14 CLIENT ADVISOR CPT-49353 First Vx - Ix admin via ID I M or jet injects without counseling by physician 16:55:17 CLIENT ADVISOR CPT-32172 Fluzone Quadrivalent Intramuscular Suspe nsion 0.5 ML 16:55:17 CLIENT ADVISOR CPT-49325 Renal Panel - LAB USE ONLY 17:39:20 CDT 201 10/31/07 CPT-33746 CBC - LAB USE ONLY 17:39:20 CDT CPT-46413 Venipuncture Draw Fee 17:39:20 CDT CPT-61562 Venipuncture Draw Fee 14:33:30 CDT CPT-40583 Renal Panel - LAB USE ONLY 14:33:30 CDT 201 10/31/07 CPT-95909 CBC - LAB USE ONLY 14:33:29 CDT CPT-21764 Venipuncture Draw Fee 14:50:21 CLIENT ADVISOR CPT-78610 Immunization Single Admin 17:35:35 CDT 2014 CPT-82682 Fluzone Quadrivalent preservative free ( >=3yrs.) 17:35:35 CDT CPT-19819 Venipuncture Draw Fee 12:10:27 CLIENT ADVISOR CPT-88532 Fluzone Quadrivalent Intramuscular Suspe nsion 0.5 ML 10:49:13 CDT CPT-13140 First Vx Component - Ix admi n via ID IM or jet inj without physician counseling 15:17:19 CLIENT ADVISOR CPT-77644 Pneumovax 15:17:19 CLIENT ADVISOR CPT-28925 Pneumovax 14:52:45 CLIENT ADVISOR CPT-72171 Venipuncture Draw Fee 14:06:30 CLIENT ADVISOR CPT-000 Give Appropriate Flu Vaccine 14:18:34 CLIENT ADVISOR 2 CPT-54910 Administration single or combination vac cine inc oral 14:46:00 CLIENT ADVISOR CPT-33542 Influenza split virus > age 3 14:46:00 CLIENT ADVISOR CPT-OV Office Visit 19:13:16 CDT CPT-37875 Zostavax 18:41:56 CDT CPT-60600 Administration single or combination vac cine inc oral 12:56:39 CDT CPT-84865 Zoster Vaccine (Zostavax) 12:56:39 CDT 2012 CPT-03491 Venipuncture Draw Fee 10:58:57 CDT CPT-00937 Sono pelvis non OB uterus ovaries cervix 17:45:04 CDT CPT-00505 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
--- OUTSIDE RECORDS SUMMARY | 2019-10-27 13:25 | XMS REPORT | Clinical Summary ---
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 Benign neoplasm of colon PERIPHERAL NEUROPATHY [...] ronary atherosclerosis of unspecified type of vessel, [place] or graft OTH NONSPC ABN FINDNG RAD&OTH [...] three times a day 201 12/03/26 GABAPENTIN [id number] No Longer Active Baltazar Childers MD Activ e LISINOPRIL 20 MG ORAL TABLET 1 tablet by mouth daily at night 2016 LISINOPRIL 01907726232 Active Baltazar Childers MD Active ZITHROMAX Z-ISAIAS 250 MG ORAL TABLET Take two tablets to day and then 1 tablet daily for 4 days AZITHROMYCIN 85830683121 No Longer A ctive Baltazar Childers MD Active LANTUS SOLOSTAR 100 UNIT/ML SUBCUTANEOUS SOLUTION PEN- INJECTOR 30 units SC daily INSULIN GLARGINE 00368544588 Active Baltazar Chiledrs MD Active AMLODIPINE BESYLATE 5 MG ORAL TABLET 1 tab daily for HTN AMLODIPINE BESYLATE 29486232624 Active Baltazar Childers MD Active SYNTHROID 100 MCG ORAL TABLET 1 tablet by mouth daily LEVOTHYROXINE SODIUM 54932889581 Active Baltazar Childers MD Active GLIPIZIDE 10 MG ORAL TABLET take 2 tablets twice daily GLIPIZIDE 03242094221 Active Baltazar Childers MD Active SUCRALFATE 1 GM ORAL TABLET 1 four times a day to coat the stoma ch SUCRALFATE 98469794300 No Longer Active Baltazar Childers MD Active PEN NEEDLES 31G X 6 MM use 1 daily INSULIN PEN NE EDLE 74590874237 Active KENDALL Juarez Active CELINA SOLOSTNAKITA 300 UNIT/ML SUBCUTANEOUS SOLUTION PEN- INJECTOR 10 units SC daily INSULIN GLARGINE 22555475545 No Longer Active Rola Godinez RMA Active NAPROXEN SODIUM 220 MG ORAL TABLET 1 three times a day as needed NAPROXEN SODIUM 65394043826 No Longer Active Baltazar Childers MD Active ATORVASTATIN CALCIUM 20 MG ORAL TABLET Take 1 tab daily ATORVASTATIN CALCIUM 56942732351 Active Baltazar Childers MD A ctive FUROSEMIDE 40 MG ORAL TABLET Take one by mouth daily FUROSEMIDE 04537318371 Active Baltazar Childers MD Active LISINOPRIL 20 MG ORAL TABLET Take one by mouth daily at bedtime LISINOPRIL 30482088266 No Longer Active Baltazar Childers MD Active ONETOUCH ULTRA BLUE IN VITRO STRIP Test twice a day 07/11/11 GLUCOSE BLOOD 71410536089 No Longer Active Baltazar Childers MD Acti ve TRUEPLUS LANCETS 33G Test twice a day LANCETS 3708937 8391 Active KENDALL Juarez Active TRUEDRAW LANCING DEVICE Test twice a day LANCET DEVICES 79412446202 Active Baltazar Childers MD Active TRUETRACK TEST IN VITRO STRIP Test twice a day GLUCOSE BLOOD 21396843548 Active KENDALL Juarez Active TRUETRACK BLOOD GLUCOSE w/Device KIT Test twice a day BLOOD GLUCOSE MONITORING SUPPL 63797895157 Active Baltaazr Childers MD Activ e HYDROCODONE-ACETAMINOPHEN 7.5-325 MG ORAL TABLET Take 1 tab every 6-8 hours PRN HYDROCODONE-ACETAMINOPHEN 16159522073 Active Baltazar Nickerson MD Active NORTRIPTYLINE HCL 50 MG ORAL CAPSULE 1 every night for neuropathy 2 NORTRIPTYLINE HCL 36069230357 Active Baltazar Childers MD Acti ve GABAPENTIN 300 MG ORAL CAPSULE 1 po qd x 2 days, then 1 po BID x 2 days, then 1 po TID GABAPENTIN 15388234628 No Longer Active Baltazar Childers MD Active TRAMADOL HCL 50 MG ORAL TABLET 1 twice a day as needed for pain 201 07/27/28 TRAMADOL HCL 70598416995 Active Baltazar Childers MD Active NAPROXEN 500 MG ORAL TABLET 1 tablet by mouth twice daily NAPROXEN 83986365091 No Longer Active Baltazar Childers MD Active PROAIR HFA 108 (90 Base) MCG/ACT INHALATION AEROSOL SO LUTION 2 puffs four times a day as needed ALBUTEROL SULFATE 16728263682 Active KENDALL Bowie Active DEPO-TESTOSTERONE 200 MG/ML INTRAMUSCULAR SOLUTION as directed TESTOSTERONE CYPIONATE 32735559862 No Longer Active Baltazar Childers MD Active LIPITOR 20 MG ORAL TABLET Take one by mouth daily in evening ATORVASTATIN CALCIUM 34779085270 No Longer Active Baltazar Childers MD Active CRESTOR 10 MG ORAL TABLET 1 by mouth every day ROSUVASTATIN CALCIUM 96060356078 No Longer Active Baltazar Childers MD Active PHENTERMINE HCL 37.5 MG ORAL TABLET Take one by mouth daily PHENTERMINE HCL 99087311710 No Longer Active Baltazar Childers MD Ac tive ROBAXIN-750 750 MG ORAL TABLET Take one by mouth daily METHOCARBAMOL 68192653462 Active Baltazar Childers MD Active TIZANIDINE HCL 4 MG ORAL TABLET 1 daily as needed for muscle spa sm TIZANIDINE HCL 14566335790 No Longer Active Dawna Salazar RN Active [id number]-IFRPLHRF 50-325-40 MG ORAL TABLET 1 fo ur times a day as needed for heacache [id number] 80024117834 Active Baltazar Childers MD Active SUMATRIPTAN SUCCINATE 100 MG ORAL TABLET 1 tablet by m outh at onset of migraine as needed SUMATRIPTAN SUCCINATE 61547715545 Active KENDALL Restrepo Active LORATADINE 10 MG ORAL TABLET Take one by mouth daily LORATADINE 05047357376 Active Baltazar Childers MD Active OMEPRAZOLE 20 MG ORAL CAPSULE DELAYED RELEASE Take one by mouth jostin ly OMEPRAZOLE 76843720228 Active Baltazar Childers MD Active HYDROXYZINE HCL 25 MG ORAL TABLET Take one by mouth daily HYDROXYZINE HCL 30295466404 Active Baltazar Childers MD Active ALPRAZOLAM 1 MG ORAL TABLET 1 tablet [facility] ALPRAZOLAM 24126845899 Active Baltazar Childers MD Active METFORMIN HCL 1000 MG ORAL TABLET Take one by mouth twice daily METFORMIN HCL 57784684988 Active Baltazar Childers MD Active TIZANIDINE HCL 4 MG ORAL TABLET 1 daily as needed for muscle spa sm TIZANIDINE HCL 4 MG ORAL TABLET 926222 TIZANIDINE HCL Inactive PHENTERMINE HCL 37.5 MG ORAL TABLET Take one by mouth daily PHENTERMINE HCL 37.5 MG ORAL TABLET 631767 PHENTERMINE HCL Inac tive CRESTOR 10 MG ORAL TABLET 1 by mouth every day CRESTOR 10 MG ORAL TABLET 973558 ROSUVASTATIN CALCIUM Inactive LIPITOR 20 MG ORAL TABLET Take one by mouth daily in evening LIPITOR 20 MG ORAL TABLET 647964 ATORVASTATIN CALCIUM Inactive DEPO-TESTOSTERONE 200 MG/ML INTRAMUSCULAR SOLUTION as directed DEPO-TESTOSTERONE 200 MG/ML INTRAMUSCULAR SOLUTION 600862 RUFINO TOSTERONE CYPIONATE Inactive NAPROXEN 500 MG ORAL TABLET 1 tablet by mouth twice daily NAPROXEN 500 MG ORAL TABLET 500408 NAPROXEN Inactive GABAPENTIN 300 MG ORAL CAPSULE 1 po qd x 2 days, then 1 po BID x 2 days, then 1 po TID GABAPENTIN 300 MG ORAL CAPSULE 785049 GABAP ENTIN Inactive ONETOUCH ULTRA BLUE IN VITRO STRIP Test twice a day 07/11/11 ONETOUCH ULTRA BLUE IN VITRO STRIP GLUCOSE BLOOD Inact amie NAPROXEN SODIUM 220 MG ORAL TABLET 1 three times a day as needed NAPROXEN SODIUM 220 MG ORAL TABLET 117121 NAPROXEN SODI UM Inactive TOUJEO SOLOSTAR 300 UNIT/ML SUBCUTANEOUS SOLUTION PEN- INJECTOR 10 units SC daily TOUJEO SOLOSTAR 300 UNIT/ML SUBCUTANEOUS SOLUTION PEN-INJECTOR INSULIN GLARGINE Inactive SUCRALFATE 1 GM ORAL TABLET 1 four times a day to coat the stoma ch SUCRALFATE 1 GM ORAL TABLET 385238 SUCRALFATE Inac tive GABAPENTIN 300 MG ORAL CAPSULE 1 three times a day 201 12/03/26 GABAPENTIN 300 MG ORAL CAPSULE 769088 GABAPENTIN Inactive ZITHROMAX Z-ISAIAS 250 MG ORAL TABLET Take two tablets to day and then 1 tablet daily for 4 days ZITHROMAX Z-ISAIAS 250 MG ORAL TAB LET 984164 AZITHROMYCIN Inactive Immunizations Vaccine Administration Date Value Standard Floyd cription pneumococcal immunization administered Pneumovax 23 [CVX33] pneumococcal polysaccharide vaccine, 23 valent Seasonal influenza vaccine, injectable, containing preservative, for > 3 years old (Afluria, FluLaval, Fluzone, Fluvirin, Fluarix, Agriflu(>= 18 yo)) Fluzone (>3 yrs.) [RHB370] Influenza, seasonal, inject able Seasonal influenza vaccine, injectable, containing preservative, for > 3 years old (Afluria, FluLaval, Fluzone, Fluvirin, Fluarix, Agriflu(>= 18 yo)) Fluzone (>3 yrs.) [SLJ923] Influenza, seasonal, inject able Vital Signs Date [...] - Chem istry sodium, serum 139 mmol/L 877-887 9717/10/03 potassium, serum 4.7 mmol/L 3.5-5.2 chloride, serum 98 mmol/L 98-107 carbon dioxide, venous blood 28.7 mmol/L 21.0-32 .0 blood glucose 218 mg/dL 65-110 calcium, serum 9.8 mg/dL 8.5-10.1 urea nitrogen, blood 19 mg/dL 7-18 creatinine, serum 1.68 mg/dL 0.60-1.30 Lab Report: Basic Metabolic Panel, HGBA1 C - Chemistry sodium, serum 143 mmol/L 000-037 3404/06/19 potassium, serum 5.9 mmol/L 3.5-5.2 chloride, serum 105 mmol/L 98-107 carbon dioxide, venous blood 30.2 mmol/L 21.0-32 .0 blood glucose 189 mg/dL 65-110 calcium, serum 9.7 mg/dL 8.5-10.1 urea nitrogen, blood 37 mg/dL 7-18 creatinine, serum 2.11 mg/dL 0.55-1.30 hemoglobin A1C, blood, as % of total hemoglobin 8.2 % 4.3-6.0 Lab Report: CBC, Renal Panel - Chemistry sodium, serum 142 mmol/L 170-525 6894/08/11 potassium, serum 4.8 mmol/L 3.5-5.2 chloride, serum [...] (L) - Chemistry cholesterol, serum 209 mg/dL 500-901 7887/12/27 triglyceride, serum, fasting 329 mg/dL 30-200 HDL cholesterol, serum 56 mg/dL 32-60 LDL cholesterol, serum 87 mg/dL 0-130 TSH 3.60 m[iU]/mL 0.36-3.74 Encounters Code Encounter Date Provider Facility CPT-75414 Level 4 Est. Patient 17:05:37 CDT Baltazar Childers MD [facility] CPT-28356 Level 4 Est. 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 Patient 12:25:11 CDT Baltazar Childers MD [facility] CPT-67643 Level 4 Est. Patient 14:22:31 CDT Baltazar Childers MD [facility]-31966 Level 4 Est. Patient 15:44:38 CDT Shonan Parker APRN [facility]-14530 Level 4 Est. Patient 11:34:17 CDT Baltazar Childers MD [facility]-48400 Level 3 Est. Patient 16:40:40 CDT Baltazar Childers MD [facility]-15074 Level 4 Est. Patient 10:41:24 CDT Baltazar Childers MD [facility]-99630 Level 4 Est. Patient 16:01:48 CDT Baltazar Childers MD [facility]-32241 Level 4 Est. Patient 16:54:07 PIPE [employer]GAN BUILDER Baltazar Childers MD [facility]-19906 Level 4 Est. Patient 15:42:12 CDT Baltazar Childers MD [facility] CPT-80519 Level 4 Est. Patient 11:29:55 CDT Baltazar Childers MD [facility] CPT-05448 Level 4 Est. Patient 14:15:19 CDT Baltazar Childers MD [facility]-43428 Level 4 Est. Patient 12:20:13 CDT Baltazar Childers MD [facility]-11559 Level 4 Est. Patient 14:52:45 PIPE [employer]GAN BUILDER Baltazar Childers MD [facility] CPT-45884 Level 4 Est. Patient 14:18:34 PIPE [employer]GAN BUILDER Baltazar Childers MD [facility]-46719 Level 4 Est. Patient 15:18:29 CDT Baltazar Childers MD [facility]-04279 Level 3 Est. Patient 12:45:34 CDT Baltazar Childers MD [facility]-18971 Level 3 Est. Patient 10:10:11 CDT Baltazar Childers MD [facility] CPT-20833 Level 3 Est. Patient 14:07:50 CDT Baltazar Childers MD [facility] CPT-30162 Level 4 Est. Patient 12:26:10 PIPE [employer]GAN BUILDER Baltazar Childers MD [facility] CPT-65215 Level 4 Est. Patient 14:45:38 CDT Baltazar Childers MD [facility] CPT-80137 Level 4 New Patient 12:30:48 CDT Baltazar hinton MD [facility] Procedures Code Procedure Name Date Entry Date Standard Desc ription CPT-95652 First Vx - Ix admin via ID I M or jet injects without counseling by physician 13:08:59 CDT CPT-74843 Fluzone Quadrivalent Intramuscular Suspe nsion 0.5 ML 13:08:59 CDT CPT-07211 Venipuncture Draw Fee 12:04:12 CDT CPT-90291 Lipid - LAB USE ONLY 17:39:15 PIPE [employer]GAN BUILDER 9 CPT-76979 HGBA1C - LAB USE ONLY 17:39:15 PIPE [employer]GAN BUILDER CPT-93204 CMP - LAB USE ONLY 17:39:14 PIPE [employer]GAN BUILDER CPT-14176 Venipuncture Draw Fee 17:39:14 PIPE [employer]GAN BUIL[employer] CPT-69729 First Vx - Ix admin via ID I M or jet injects without counseling by physician 16:55:17 PIPE [employer]GAN BUILDER CPT-66310 Fluzone Quadrivalent Intramuscular Suspe nsion 0.5 ML 16:55:17 PIPE [employer]GAN BUILDER CPT-89078 Renal Panel - LAB USE ONLY 17:39:20 CDT 201 10/31/07 CPT-22803 CBC - LAB USE ONLY 17:39:20 CDT CPT-89669 Venipuncture Draw Fee 17:39:20 CDT CPT-91253 Venipuncture Draw Fee 14:33:30 CDT CPT-63302 Renal Panel - LAB USE ONLY 14:33:30 CDT 201 10/31/07 CPT-00111 CBC - LAB USE ONLY 14:33:29 CDT CPT-00951 Venipuncture Draw Fee 14:50:21 PIPE [employer]GAN BUIL[employer] CPT-26619 Immunization Single Admin 17:35:35 CDT 2014 CPT-01618 Fluzone Quadrivalent preservative free ( >=3yrs.) 17:35:35 CDT CPT-91246 Venipuncture Draw Fee 12:10:27 PIPE [employer]GAN BUILDER CPT-82327 Fluzone Quadrivalent Intramuscular Suspe nsion 0.5 ML 10:49:13 CDT CPT-54837 First Vx Component - Ix admi n via ID IM or jet inj without physician counseling 15:17:19 PIPE [employer]GAN BUILDER CPT-28965 Pneumovax 23 15:17:19 PIPE [employer]GAN BUILDER CPT-29442 Pneumovax 14:52:45 PIPE [employer]GAN BUILDER CPT-03419 Venipuncture Draw Fee 14:06:30 PIPE [employer]GAN BUILDER CPT-000 Give Appropriate Flu Vaccine 14:18:34 PIPE [employer]GAN BUILDER 2 CPT-91936 Administration single or combination vac cine inc oral 14:46:00 PIPE [employer]GAN BUILDER CPT-37133 Influenza split virus > age 3 14:46:00 PIPE [employer]GAN BUILDER CPT-OV Office Visit 19:13:16 CDT CPT-39911 Zostavax 18:41:56 CDT CPT-55178 Administration single or combination vac cine inc oral 12:56:39 CDT CPT-71359 Zoster Vaccine (Zostavax) 12:56:39 CDT 2012 CPT-97823 Venipuncture Draw Fee 10:58:57 CDT CPT-35441 Sono pelvis non OB uterus ovaries cervix 17:45:04 CDT CPT-83494 Sono retroperitoneal complete kidneys an d bladder 17:14:36 CDT CPT-OV Office Visit 14:59:38 PIPE [employer]GAN BUIL[employer] CPT-J1070 Depo Testosterone 100 mg 14:50:13 CDT 03/05 CPT-00000 Abx/Therapy Injection 14:50:13 CDT CPT-28664 Administration single or combination vac cine inc oral 14:34:43 CDT CPT-20841 Influenza split virus > age 3 14:34:43 CDT CPT-J1070 Depo Testosterone 100 mg 17:37:13 CDT 01/11 CPT-07939 Abx/Therapy Injection 17:37:13 CDT CPT-90396 Venipuncture Draw Fee 16:30:13 CDT CPT-77701 Venipuncture Draw Fee 16:29:43 CDT CPT-J1070 Depo Testosterone 100 mg 14:45:38 CDT 01/11
--- OUTSIDE RECORDS SUMMARY | 2019-10-27 13:25 | XMS REPORT | Clinical Summary ---
Author Author Admin, Elba Lance [facility] Address Unknown Phone Unavailable Allergies, Adverse [...] libido COLON POLYPS 211.3 Resolved Lolis Thomas [employer]GR[employer] Benign neoplasm of colon PERIPHERAL NEUROPATHY [...] ronary atherosclerosis of unspecified type of vessel, white earth or graft OTH NONSPC ABN FINDNG RAD&OTH [...] 1 tablet daily for 4 days AZITHROMYCIN 65063150290 No Longer A ctive Baltazar Childers MD Active LANTUS SOLOSTAR 100 UNIT/ML SUBCUTANEOUS SOLUTION PEN- INJECTOR 30 units SC daily INSULIN GLARGINE 69753123917 Active Baltazar Childers MD Active AMLODIPINE BESYLATE 5 MG ORAL TABLET 1 tab daily for HTN AMLODIPINE BESYLATE 90858911559 Active Baltazar Childers MD Active SYNTHROID 100 MCG ORAL TABLET 1 tablet by mouth daily LEVOTHYROXINE SODIUM 96531794006 Active Baltazar Childers MD Active GLIPIZIDE 10 MG ORAL TABLET take 2 tablets twice daily GLIPIZIDE 35575022116 Active Baltazar Childers MD Active SUCRALFATE 1 GM ORAL TABLET 1 four times a day to coat the stoma ch SUCRALFATE 54964093443 No Longer Active Baltazar Childers MD Active PEN NEEDLES 31G X 6 MM use 1 daily INSULIN PEN NE EDLE 28632418626 Active KENDALL Juarez Active TOUJEO SOLOSTAR 300 UNIT/ML SUBCUTANEOUS SOLUTION PEN- INJECTOR 10 units SC daily INSULIN GLARGINE 04200991813 No Longer Active Rola ARGUETA Active NAPROXEN SODIUM 220 MG ORAL TABLET 1 three times a day as needed NAPROXEN SODIUM 97669753822 No Longer Active Baltazar Childers MD Active ATORVASTATIN CALCIUM 20 MG ORAL TABLET Take 1 tab daily ATORVASTATIN CALCIUM 15182441232 Active Baltazar Childers MD A ctive FUROSEMIDE 40 MG ORAL TABLET Take one by mouth daily FUROSEMIDE 64542747930 Active Jessy Arellano LPN Active LISINOPRIL 20 MG ORAL TABLET Take one by mouth daily at bedtime LISINOPRIL 26984445860 No Longer Active Baltazar Childers MD Active ONETOUCH ULTRA BLUE IN VITRO STRIP Test twice a day 07/11/11 GLUCOSE BLOOD 11129405198 No Longer Active Baltazar Childers MD Acti ve TRUEPLUS LANCETS 33G Test twice a day LANCETS 8177581 4757 Active KENDALL Juarez Active TRUEDRAW LANCING DEVICE Test twice a day LANCET DEVICES 81971028044 Active Baltazar Childers MD Active TRUETRACK TEST IN VITRO STRIP Test twice a day GLUCOSE BLOOD 57145360878 Active KENDALL Juarez Active TRUETRACK BLOOD GLUCOSE w/Device KIT Test twice a day BLOOD GLUCOSE MONITORING SUPPL 01454119854 Active Baltazar Childers MD Activ e HYDROCODONE-ACETAMINOPHEN 7.5-325 MG ORAL TABLET Take 1 tab every 6-8 hours PRN HYDROCODONE-ACETAMINOPHEN 48490979947 Active Baltazar Nickerson MD Active NORTRIPTYLINE HCL 50 MG ORAL CAPSULE 1 every night for neuropathy 2 NORTRIPTYLINE HCL 56862333666 Active aBltazar Childers MD Acti ve GABAPENTIN 300 MG ORAL CAPSULE 1 three times a day GABAPENTIN 65664200900 Active Baltazar Childers MD Active GABAPENTIN 300 MG ORAL CAPSULE 1 po qd x 2 days, then 1 po BID x 2 days, then 1 po TID GABAPENTIN 38467511064 No Longer Active Baltazar Childers MD Active TRAMADOL HCL 50 MG ORAL TABLET 1 twice a day as needed for pain 201 07/27/28 TRAMADOL HCL 34763369295 Active Baltazar Childers MD Active NAPROXEN 500 MG ORAL TABLET 1 tablet by mouth twice daily NAPROXEN 36360879239 No Longer Active Baltazar Childers MD Active PROAIR HFA 108 (90 Base) MCG/ACT INHALATION AEROSOL SO LUTION 2 puffs four times a day as needed ALBUTEROL SULFATE 00058957525 Active Paul Childers MD Active DEPO-TESTOSTERONE 200 MG/ML INTRAMUSCULAR SOLUTION as directed TESTOSTERONE CYPIONATE 05839637878 No Longer Active Baltazar Childers MD Active LIPITOR 20 MG ORAL TABLET Take one by mouth daily in evening ATORVASTATIN CALCIUM 31691111476 No Longer Active Baltazar Childers MD Active CRESTOR 10 MG ORAL TABLET 1 by mouth every day ROSUVASTATIN CALCIUM 36781260657 No Longer Active Baltazar Childers MD Active PHENTERMINE HCL 37.5 MG ORAL TABLET Take one by mouth daily PHENTERMINE HCL 50316233053 No Longer Active Baltazar Childers MD Ac tive ROBAXIN-750 750 MG ORAL TABLET Take one by mouth daily METHOCARBAMOL 41598932341 Active Baltazar Childers MD Active TIZANIDINE HCL 4 MG ORAL TABLET 1 daily as needed for muscle spa sm TIZANIDINE HCL 87849040864 No Longer Active Dawna Salazar RN Active IGDSCUFFQT-DECH-QPOUTTSS 50-325-40 MG ORAL TABLET 1 fo ur times a day as needed for heacache [id number] 88039793783 Active Baltazar Childers MD Active SUMATRIPTAN SUCCINATE 100 MG ORAL TABLET 1 tablet by m outh at onset of migraine as needed SUMATRIPTAN SUCCINATE 00790970686 Active Bertha Vazquez LPN Active LORATADINE 10 MG ORAL TABLET Take one by mouth daily LORATADINE 73320730353 Active Baltazar Childers MD Active OMEPRAZOLE 20 MG ORAL CAPSULE DELAYED RELEASE Take one by mouth jostin ly OMEPRAZOLE 60096781627 Active Baltazar Childers MD Active HYDROXYZINE HCL 25 MG ORAL TABLET Take one by mouth daily HYDROXYZINE HCL 00300002010 Active Baltazar Childers MD Active ALPRAZOLAM 1 MG ORAL TABLET 1 tablet by mouth daily at bedti mo for restless leg ALPRAZOLAM 58133070375 Active Baltazar Childers MD Active METFORMIN HCL 1000 MG ORAL TABLET Take one by mouth twice daily METFORMIN HCL 62771819405 Active Baltazar Childers MD Active TIZANIDINE HCL 4 MG ORAL TABLET 1 daily as needed for muscle spa sm TIZANIDINE HCL 4 MG ORAL TABLET 329292 TIZANIDINE HCL Inactive PHENTERMINE HCL 37.5 MG ORAL TABLET Take one by mouth daily PHENTERMINE HCL 37.5 MG ORAL TABLET 404881 PHENTERMINE HCL Inac tive CRESTOR 10 MG ORAL TABLET 1 by mouth every day CRESTOR 10 MG ORAL TABLET 326843 ROSUVASTATIN CALCIUM Inactive LIPITOR 20 MG ORAL TABLET Take one by mouth daily in evening LIPITOR 20 MG ORAL TABLET 774041 ATORVASTATIN CALCIUM Inactive DEPO-TESTOSTERONE 200 MG/ML INTRAMUSCULAR SOLUTION as directed DEPO-TESTOSTERONE 200 MG/ML INTRAMUSCULAR SOLUTION 759815 RUFINO TOSTERONE CYPIONATE Inactive NAPROXEN 500 MG ORAL TABLET 1 tablet by mouth twice daily NAPROXEN 500 MG ORAL TABLET 816092 NAPROXEN Inactive GABAPENTIN 300 MG ORAL CAPSULE 1 po qd x 2 days, then 1 po BID x 2 days, then 1 po TID GABAPENTIN 300 MG ORAL CAPSULE 205290 GABAP ENTIN Inactive ONETOUCH ULTRA BLUE IN VITRO STRIP Test twice a day 07/11/11 ONETOUCH ULTRA BLUE IN VITRO STRIP GLUCOSE BLOOD Inact amie NAPROXEN SODIUM 220 MG ORAL TABLET 1 three times a day as needed NAPROXEN SODIUM 220 MG ORAL TABLET 494585 NAPROXEN SODI UM Inactive TOUJEO SOLOSTAR 300 UNIT/ML SUBCUTANEOUS SOLUTION PEN- INJECTOR 10 units SC daily TOUJEO SOLOSTAR 300 UNIT/ML SUBCUTANEOUS SOLUTION PEN-INJECTOR INSULIN GLARGINE Inactive SUCRALFATE 1 GM ORAL TABLET 1 four times a day to coat the stoma ch SUCRALFATE 1 GM ORAL TABLET 275118 SUCRALFATE Inac tive ZITHROMAX Z-ISAIAS 250 MG ORAL TABLET Take two tablets to day and then 1 tablet daily for 4 days ZITHROMAX Z-ISAIAS 250 MG ORAL TAB LET 009110 AZITHROMYCIN Inactive Immunizations Vaccine Administration Date Value Standard Floyd cription pneumococcal immunization administered Pneumovax 23 [CVX33] pneumococcal polysaccharide vaccine, 23 valent Seasonal influenza vaccine, injectable, containing preservative, for > 3 years old (Afluria, FluLaval, Fluzone, Fluvirin, Fluarix, Agriflu(>= 18 yo)) Fluzone (>3 yrs.) [[id number]] Influenza, seasonal, inject able Seasonal influenza vaccine, injectable, containing preservative, for > 3 years old (Afluria, FluLaval, Fluzone, Fluvirin, Fluarix, Agriflu(>= 18 yo)) Fluzone (>3 yrs.) [[id number]] Influenza, seasonal, inject able Vital Signs Date [...] d blood pressure, diastolic 81 mm[Hg] BP [place] blood pressure, systolic 139 mm[Hg] BP sys pulse rate E&M 97 /min Heart rate temperature E&M 98 [degF] Body temp erature weight E&M 234.5 [lb_av] Weight Measure d Diagnostic Results Date Name Value Unit Range Description Lab Report: Basic Metabolic Panel - Chem istry sodium, serum 139 mmol/L 417-983 1603/10/03 potassium, serum 4.7 mmol/L 3.5-5.2 chloride, serum 98 mmol/L 98-107 carbon dioxide, venous blood 28.7 mmol/L 21.0-32 .0 blood glucose 218 mg/dL 65-110 calcium, serum 9.8 mg/dL 8.5-10.1 urea nitrogen, blood 19 mg/dL 7-18 creatinine, serum 1.68 mg/dL 0.60-1.30 Lab Report: Basic Metabolic Panel, HGBA1 C - Chemistry sodium, serum 143 mmol/L 175-532 0662/06/19 potassium, serum 5.9 mmol/L 3.5-5.2 chloride, serum 105 mmol/L 98-107 carbon dioxide, venous blood 30.2 mmol/L 21.0-32 .0 blood glucose 189 mg/dL 65-110 calcium, serum 9.7 mg/dL 8.5-10.1 urea nitrogen, blood 37 mg/dL 7-18 creatinine, serum 2.11 mg/dL 0.55-1.30 hemoglobin A1C, blood, as % of total hemoglobin 8.2 % 4.3-6.0 Lab Report: CBC, Renal Panel - Chemistry sodium, serum 142 mmol/L 574-203 8906/08/11 potassium, serum 4.8 mmol/L 3.5-5.2 chloride, serum [...] Panel - Chemistry sodium, serum 143 mmol/L 225-584 1845/12/19 carbon dioxide, venous blood 32.5 mmol/L 21.0-32 .0 potassium, serum 4.9 mmol/L 3.5-5.2 chloride, serum 101 mmol/L 98-107 blood glucose 129 mg/dL 65-110 urea nitrogen, blood 18 mg/dL 7-18 creatinine, serum 1.79 mg/dL 0.55-1.30 alanine aminotransferase (SGPT), serum 34 U/L 12-78 aspartate aminotransferase (SGOT), serum 26 U/L 15-37 calcium, serum 8.9 mg/dL 8.5-10.1 bilirubin, serum, total 0.30 mg/dL 0.00-1.00 cholesterol, serum 214 mg/dL 289-306 8869/12/19 triglyceride, serum, fasting 351 mg/dL 30-200 HDL [...] 4.3-6.0 Encounters Code Encounter Date Provider Facility CPT-74204 Level 4 Est. Patient 12:25:11 CDT Baltazar Childers MD [facility] CPT-61344 Level 4 Est. Patient 14:22:31 CDT Baltazar Childers MD [facility] [id number] Level 4 Est. Patient 15:44:38 CDT Shonna Elena CASTELLANOS [facility] CPT-83458 Level 4 Est. Patient 11:34:17 CDT Baltazar Childers MD [facility] CPT-21385 Level 3 Est. Patient 16:40:40 CDT Baltazar Childers MD [facility] CPT-64512 Level 4 Est. Patient 10:41:24 CDT Baltazar Childers MD [facility] [place]-[id number] Level 4 Est. Patient 16:01:48 CDT Baltazar Childers MD [facility] CPT-33138 Level 4 Est. Patient 16:54:07 [facility]IOR[facility] HEALTH CLINIC[facility] Baltazar Childers MD [facility] [place]-39372 Level 4 Est. Patient 15:42:12 CDT Baltazar Childers MD [facility] CPT-14274 Level 4 Est. Patient 11:29:55 CDT Baltazar Childers MD [facility] CPT-23748 Level 4 Est. Patient 14:15:19 CDT Baltazar Childers MD [facility] CPT-44332 Level 4 Est. Patient 12:20:13 CDT Baltazar Childers MD [facility] CPT-77339 Level 4 Est. Patient 14:52:45 BEHAVIOR[facility] HEALTH CLINICIAN Baltazar Childers MD [facility] CPT-21786 Level 4 Est. Patient 14:18:34 BEHAVIORAL HEALTH CLINICIAN Baltazar Childers MD [facility]-97040 Level 4 Est. Patient 15:18:29 CDT Baltazar Childers MD [facility] CPT-31164 Level 3 Est. Patient 12:45:34 CDT Baltazar Childers MD [facility] CPT-30309 Level 3 Est. Patient 10:10:11 CDT Baltazar Childers MD [facility] CPT-52046 Level 3 Est. Patient 14:07:50 CDT Baltazar Childers MD [facility] CPT-99314 Level 4 Est. Patient 12:26:10 BEHAVIORAL HEALTH CLINICIAN Baltazar Childers MD [facility] CPT-76339 Level 4 Est. Patient 14:45:38 CDT Baltazar Childers MD [facility] CPT-59151 Level 4 New Patient 12:30:48 CDT Baltazar hinton MD [facility] Procedures Code Procedure Name Date Entry Date Standard Desc ription CPT-99144 First Vx - Ix admin via ID I M or jet injects without counseling by physician 13:08:59 CDT CPT-92292 Fluzone Quadrivalent Intramuscular Suspe nsion 0.5 ML 13:08:59 CDT CPT-80018 Venipuncture Draw Fee 12:04:12 CDT CPT-94842 Lipid - LAB USE ONLY 17:39:15 BEH[facility]IORAL HEALTH CLINICIAN 9 CPT-06834 HGBA1C - LAB USE ONLY 17:39:15 BEHAVIORAL HEALTH CLINICIAN CPT-21889 CMP - LAB USE ONLY 17:39:14 BEHAVIOR[facility] HEALTH CLINICIAN CPT-43493 Venipuncture Draw Fee 17:39:14 BEHAVIOR[facility] HEALTH CLINICIAN CPT-40263 First Vx - Ix admin via ID I M or jet injects without counseling by physician 16:55:17 BEHAVIORAL HEALTH CLINICIAN CPT-05057 Fluzone Quadrivalent Intramuscular Suspe nsion 0.5 ML 16:55:17 BEHAVIORAL HEALTH CLINICIAN CPT-26141 Renal Panel - LAB USE ONLY 17:39:20 CDT 201 10/31/07 CPT-73726 CBC - LAB USE ONLY 17:39:20 CDT CPT-75331 Venipuncture Draw Fee 17:39:20 CDT CPT-72957 Venipuncture Draw Fee 14:33:30 CDT CPT-39562 Renal Panel - LAB USE ONLY 14:33:30 CDT 201 10/31/07 CPT-64111 CBC - LAB USE ONLY 14:33:29 CDT CPT-51222 Venipuncture Draw Fee 14:50:21 BEHAVIORAL HEALTH CLINICIAN CPT-26590 Immunization Single Admin 17:35:35 CDT 2014 CPT-40802 Fluzone Quadrivalent preservative free ( >=3yrs.) 17:35:35 CDT CPT-32644 Venipuncture Draw Fee 12:10:27 BEHAVIORAL HEALTH CLINICIAN CPT-63977 Fluzone Quadrivalent Intramuscular Suspe nsion 0.5 ML 10:49:13 CDT CPT-30743 First Vx Component - Ix admi n via ID IM or jet inj without physician counseling 15:17:19 BEHAVIORAL HEALTH CLINICIAN CPT-01984 Pneumovax 23 15:17:19 BEHAVIORAL HEALTH CLINICIAN CPT-72043 Pneumovax 14:52:45 BEHAVIORAL HEALTH CLINICIAN CPT-78910 Venipuncture Draw Fee 14:06:30 BEHAVIORAL HEALTH CLINICIAN CPT-000 Give Appropriate Flu Vaccine 14:18:34 BEHAVIORAL HEALTH CLINICIAN 2 CPT-40374 Administration single or combination vac cine inc oral 14:46:00 BEHAVIORAL HEALTH CLINICIAN CPT-98899 Influenza split virus > age 3 14:46:00 BEHAVIORAL HEALTH CLINICIAN CPT-OV Office Visit 19:13:16 CDT CPT-74585 Zostavax 18:41:56 CDT CPT-90552 Administration single or combination vac cine inc oral 12:56:39 CDT CPT-96017 Zoster Vaccine (Zostavax) 12:56:39 CDT 2012 CPT-30007 Venipuncture Draw Fee 10:58:57 CDT CPT-54193 Sono pelvis non OB uterus ovaries cervix 17:45:04 CDT CPT-24885 Sono retroperitoneal complete kidneys an d bladder 17:14:36 CDT CPT-OV Office Visit 14:59:38 BEHAVIORAL HEALTH CLINICIAN CPT-J1070 Depo Testosterone 100 mg 14:50:13 CDT 03/05 CPT-44342 Abx/Therapy Injection 14:50:13 CDT CPT-47746 Administration single or combination vac cine inc oral 14:34:43 CDT CPT-11463 Influenza split virus > age 3 14:34:43 CDT CPT-J1070 Depo Testosterone 100 mg 17:37:13 CDT 01/11 CPT-24208 Abx/Therapy Injection 17:37:13 CDT CPT-36734 Venipuncture Draw Fee 16:30:13 CDT CPT-19469 Venipuncture Draw Fee 16:29:43 CDT CPT-J1070 Depo Testosterone 100 mg 14:45:38 CDT 01/11
--- OUTSIDE RECORDS SUMMARY | 2019-10-27 13:25 | XMS REPORT | Clinical Summary ---
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 Benign neoplasm of colon PERIPHERAL NEUROPATHY [...] atherosclerosis of unspecified type of vessel, point [place] or graft OTH NONSPC ABN FINDNG [...] 1 tablet daily for 4 days AZITHROMYCIN 57395824708 Active Baltazar Wayne Active LANTUS SOLOSTAR 100 UNIT/ML SC SOPN 30 units SC daily INSULIN GLARGINE 06888170366 Active Baltazar Childers MD Active AMLODIPINE BESYLATE 5 MG ORAL TABS 1 tab daily for HTN AMLODIPINE BESYLATE 28045635053 Active Baltazar Childers MD Active SYNTHROID 0.1 MG TAB 1 tablet by mouth daily LE VOTHYROXINE SODIUM 04670315197 Active Baltazar Childers MD Active GLIPIZIDE 10 MG TAB take 2 tablets twice daily GLIPIZIDE 77292847972 Active Baltazar Childers MD Active SUCRALFATE 1 GM TABS 1 four times a day to coat the stomach 2015 SUCRALFATE 20019137079 No Longer Active Baltazar Childers MD Active PEN NEEDLES 31G X 6 MM MISC use 1 daily INSULIN PEN NEEDLE 63265705189 Active Gato Rae MD Active TOUJEO SOLOSTAR 300 UNIT/ML SC SOPN 10 units SC daily INSULIN GLARGINE 47915649206 No Longer Active Martita ARGUETA Active NAPROXEN SODIUM 220 MG ORAL TABS 1 three times a day as needed 2 NAPROXEN SODIUM 15218889070 No Longer Active Baltazar Childers MD Active ATORVASTATIN CALCIUM 20 MG ORAL TABS Take 1 tab daily ATORVASTATIN CALCIUM 79926913390 Active Baltazar Childers MD Active FUROSEMIDE 40 MG TABS Take one by mouth daily FUROSEMIDE 01608989165 Active Baltazar Childers MD Active LISINOPRIL 20 MG TABS Take one by mouth daily at bedtime LISINOPRIL 73102325948 No Longer Active Baltazar Childers MD Active ONETOUCH ULTRA BLUE STRP Test twice a day GLUCO SE BLOOD 97979617181 No Longer Active Baltazar Childers MD Active TRUEPLUS LANCETS 33G MISC Test twice a day LANCET S 31588059837 Active KENDALL Juarez Active TRUEDRAW LANCING DEVICE MISC Test twice a day L ANCET DEVICES 60123372102 Active Baltazar Childers MD Active TRUETRACK TEST STRP Test twice a day GLUCOSE BLOO D 92949679992 Active KENDALL Juarez Active TRUETRACK BLOOD GLUCOSE W/DEVICE KIT Test twice a day BLOOD GLUCOSE MONITORING SUPPL 44677172683 Active Baltazar Childers MD Activ e HYDROCODONE-ACETAMINOPHEN 7.5-325 MG TABS Take 1 tab every 6-8 hour s PRN HYDROCODONE-ACETAMINOPHEN 55484540281 Active Baltazar Childers MD Active NORTRIPTYLINE HCL 50 MG CAPS 1 every night for neuropathy 4 NORTRIPTYLINE HCL 19536462668 Active Baltazar Childers MD Acti ve GABAPENTIN 300 MG CAPS 1 three times a day GABAPE NTIN 86749361347 Active Baltazar Childers MD Active GABAPENTIN 300 MG CAPS 1 po qd x 2 days, then 1 po BID x 2 d ays, then 1 po TID GABAPENTIN 74426710147 No Longer Active Baltazar silverman MD Active TRAMADOL HCL 50 MG TABS 1 twice a day as needed for pain TRAMADOL HCL 20717323847 Active Baltazar Childers MD Active NAPROXEN 500 MG TABS 1 tablet by mouth twice daily NAPROXEN 11644408113 No Longer Active Baltazar Childers MD Active PROAIR HFA 108 (90 BASE) MCG/ACT AERS 2 puffs four times a d ay as needed ALBUTEROL SULFATE 46613667556 Active Baltazar Childers MD Active DEPO-TESTOSTERONE 200 MG/ML OIL as directed RUFINO TOSTERONE CYPIONATE 66208183878 No Longer Active Baltazar Childers MD Active LIPITOR 20 MG TABS Take one by mouth daily in evening ATORVASTATIN CALCIUM 32035171993 No Longer Active Baltazar Childers MD Activ e CRESTOR 10 MG TABS 1 by mouth every day R OSUVASTATIN CALCIUM 71213425728 No Longer Active Baltazar Childers MD Activ e PHENTERMINE HCL 37.5 MG TABS Take one by mouth daily 2 PHENTERMINE HCL 74906649075 No Longer Active Baltazar Childers MD Activ e ROBAXIN-750 750 MG TABS Take one by mouth daily ME THOCARBAMOL 10508107641 Active Baltazar Childers MD Active TIZANIDINE HCL 4 MG TABS 1 daily as needed for muscle spasm 2011 TIZANIDINE HCL 06165322002 No Longer Active Dawnatung Salazar RN Active FPUVECELUK-SBSM-[id number] 50-325-40 MG TABS 1 four time s a day as needed for heacache [id number] 89663221589 Active Bethrenetta Carr KENDALL Active SUMATRIPTAN SUCCINATE 100 MG TABS 1 tablet by mouth at onset of migraine as needed SUMATRIPTAN SUCCINATE 67353784389 Active Baltazar bynum MD Active LORATADINE 10 MG TABS Take one by mouth daily LORATADINE 85080870058 Active Baltazar Childers MD Active OMEPRAZOLE 20 MG CPDR Take one by mouth daily OMEPRAZOLE 40245603304 Active Baltazar Childers MD Active HYDROXYZINE HCL 25 MG TABS Take one by mouth daily HYDROXYZINE HCL 42253510557 Active Baltazar Childers MD Active ALPRAZOLAM 1 MG TABS 1 tablet by mouth daily at bedtime for restles s leg ALPRAZOLAM 01356225674 Active Baltazar Childers MD Active METFORMIN HCL 1000 MG TABS Take one by mouth twice daily METFORMIN HCL 93742520182 Active Baltazar Childers MD Active TIZANIDINE HCL 4 MG TABS 1 daily as needed for muscle spasm 2011 TIZANIDINE HCL 4 MG TABS 256028 TIZANIDINE HCL Inactiv e PHENTERMINE HCL 37.5 MG TABS Take one by mouth daily 2 PHENTERMINE HCL 37.5 MG TABS 052355 PHENTERMINE HCL Inactive CRESTOR 10 MG TABS 1 by mouth every day C RESTOR 10 MG TABS 549190 ROSUVASTATIN CALCIUM Inactive LIPITOR 20 MG TABS Take one by mouth daily in evening LIPITOR 20 MG TABS 960548 ATORVASTATIN CALCIUM Inactive DEPO-TESTOSTERONE 200 MG/ML OIL as directed 8 DEPO-TESTOSTERONE 200 MG/ML OIL 254342 TESTOSTERONE CYPIONATE Inactive NAPROXEN 500 MG TABS 1 tablet by mouth twice daily 201 07/27/22 NAPROXEN 500 MG TABS 654654 NAPROXEN Inactive GABAPENTIN 300 MG CAPS 1 po qd x 2 days, then 1 po BID x 2 d ays, then 1 po TID GABAPENTIN 300 MG [facility] 658359 GABAPENTIN Inact amie ONETOUCH ULTRA BLUE STRP Test twice a day ONETOUCH ULTRA BLUE STRP GLUCOSE BLOOD Inactive NAPROXEN SODIUM 220 MG ORAL TABS 1 three times a day as needed 2 NAPROXEN SODIUM 220 MG ORAL TABS 306955 NAPROXEN SODIUM Inactive TOUJEO SOLOSTAR 300 UNIT/ML SC SOPN 10 units SC daily TOUJEO SOLOSTAR 300 UNIT/ML SC SOPN INSULIN GLARGINE Inac tive SUCRALFATE 1 GM TABS 1 four times a day to coat the stomach 2015 SUCRALFATE 1 GM TABS 204414 SUCRALFATE Inactive Immunizations Vaccine Administration Date Value Standard Floyd cription pneumococcal immunization administered Pneumovax 23 [CVX33] pneumococcal polysaccharide vaccine, 23 valent Seasonal influenza vaccine, injectable, containing preservative, for > 3 years old (Afluria, FluLaval, Fluzone, Fluvirin, Fluarix, Agriflu(>= 18 yo)) Fluzone (>3 yrs.) [[id number]] Influenza, seasonal, inject able Seasonal influenza vaccine, injectable, containing preservative, for > 3 years old (Afluria, FluLaval, Fluzone, Fluvirin, Fluarix, Agriflu(>= 18 yo)) Fluzone (>3 yrs.) [[id number]] Influenza, seasonal, inject able Vital Signs Date [...] C - Chemistry sodium, serum 143 mmol/L 119-627 1044/06/19 potassium, serum 5.9 mmol/L 3.5-5.2 chloride, serum 105 mmol/L 98-107 carbon dioxide, venous blood 30.2 mmol/L 21.0-32 .0 blood glucose 189 mg/dL 65-110 calcium, serum 9.7 mg/dL 8.5-10.1 urea nitrogen, blood 37 mg/dL 7-18 creatinine, serum 2.11 mg/dL 0.55-1.30 hemoglobin A1C, blood, as % of total hemoglobin 8.2 % 4.3-6.0 Lab Report: CBC, Renal Panel - Chemistry sodium, serum 142 mmol/L 857-345 1617/08/11 potassium, serum 4.8 mmol/L 3.5-5.2 chloride, serum [...] Panel - Chemistry sodium, serum 143 mmol/L 680-530 1429/12/19 carbon dioxide, venous blood 32.5 mmol/L 21.0-32 .0 potassium, serum 4.9 mmol/L 3.5-5.2 chloride, serum 101 mmol/L 98-107 blood glucose 129 mg/dL 65-110 urea nitrogen, blood 18 mg/dL 7-18 creatinine, serum 1.79 mg/dL 0.55-1.30 alanine aminotransferase (SGPT), serum 34 U/L 12-78 aspartate aminotransferase (SGOT), serum 26 U/L 15-37 calcium, serum 8.9 mg/dL 8.5-10.1 bilirubin, serum, total 0.30 mg/dL 0.00-1.00 cholesterol, serum 214 mg/dL 923-597 8346/12/19 triglyceride, serum, fasting 351 mg/dL 30-200 HDL [...] 4.3-6.0 Encounters Code Encounter Date Provider Facility CPT-28411 Level 4 Est. Patient 12:25:11 CDT Baltazar Childers MD [facility] CPT-75888 Level 4 Est. Patient 14:22:31 CDT Baltazar Childers MD [facility] CPT-21473 Level 4 Est. Patient 15:44:38 CDT Shonna Parker APRN [facility] CPT-08132 Level 4 Est. Patient 11:34:17 CDT Baltazar Childers MD [facility] CPT-54402 Level 3 Est. Patient 16:40:40 CDT Baltazar Childers MD [facility] CPT-41029 Level 4 Est. Patient 10:41:24 CDT Baltazar Childers MD [facility] CPT-68590 Level 4 Est. Patient 16:01:48 CDT Baltazar Childers MD [facility] CPT-21350 Level 4 Est. 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 Patient 15:42:12 CDT Baltazar Childers MD [facility] CPT-28715 Level 4 Est. Patient 11:29:55 CDT Baltazar Childers MD [facility] CPT-64631 Level 4 Est. Patient 14:15:19 CDT Baltazar Childers MD [facility] CPT-89618 Level 4 Est. Patient 12:20:13 CDT Baltazar Childers MD [facility] CPT-62528 Level 4 Est. Patient 14:52:45 [employer] RO[employer] 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 TEACHER Baltazar Childers MD [facility] CPT-10348 Level 4 Est. Patient 14:18:34 [employer] RO[employer] 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 TEACHER Baltazar Childers MD [facility] CPT-10220 Level 4 Est. Patient 15:18:29 CDT Baltazar Childers MD [facility] CPT-76685 Level 3 Est. Patient 12:45:34 CDT Baltazar Childers MD [facility] CPT-90240 Level 3 Est. Patient 10:10:11 CDT Baltazar Childers MD [facility] CPT-54749 Level 3 Est. Patient 14:07:50 CDT Baltazar Childers MD [facility] CPT-91149 Level 4 Est. Patient 12:26:10 [employer] RO[employer] 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 TEACHER Baltazar Childers MD [facility] CPT-79279 Level 4 Est. Patient 14:45:38 CDT Baltazar Childers MD [facility] CPT-44530 Level 4 New Patient 12:30:48 CDT Baltazar hinton MD 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 TEACHER CPT-48006 First Vx - Ix admin via ID I M or jet injects without counseling by physician 16:55:17 RESOURCE ROOM 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 TEACHER CPT-76305 Fluzone Quadrivalent Intramuscular Suspe nsion 0.5 ML 16:55:17 [employer] ROOM 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 TEACHER CPT-89636 Renal Panel - LAB USE ONLY 17:39:20 CDT 201 10/31/07 CPT-22134 CBC - LAB USE ONLY 17:39:20 CDT CPT-97476 Venipuncture Draw Fee 17:39:20 CDT CPT-41498 Venipuncture Draw Fee 14:33:30 CDT CPT-11954 Renal Panel - LAB USE ONLY 14:33:30 CDT 201 10/31/07 CPT-84417 CBC - LAB USE ONLY 14:33:29 CDT CPT-16230 Venipuncture Draw Fee 14:50:21 [employer] ROOM 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 TEACHER CPT-22907 Immunization Single Admin 17:35:35 CDT 2014 CPT-53248 Fluzone Quadrivalent preservative free ( >=3yrs.) 17:35:35 CDT CPT-56231 Venipuncture Draw Fee 12:10:27 [employer]OURCE ROOM 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 TEACHER CPT-90656 Fluzone Quadrivalent Intramuscular Suspe nsion 0.5 ML 10:49:13 CDT CPT-03889 First Vx Component - Ix admi n via ID IM or jet inj without physician counseling 15:17:19 [employer] ROOM 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 TEACHER CPT-35152 Pneumovax 23 15:17:19 [employer]OURCE ROOM 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 TEACHER CPT-59216 Pneumovax 14:52:45 [employer]OURCE ROOM 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 TEACHER CPT-94433 Venipuncture Draw Fee 14:06:30 RESOURCE ROOM 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 TEACHER CPT-000 Give Appropriate Flu Vaccine 14:18:34 RES[employer] ROOM 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 TEACHER 2 CPT-88954 Administration single or combination vac cine inc oral 14:46:00 [employer]OURCE RO[employer] 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 TEACHER CPT-77527 Influenza split virus > age 3 14:46:00 RESOURCE ROOM 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 TEACHER CPT-OV Office Visit 19:13:16 CDT CPT-58281 Zostavax 18:41:56 CDT CPT-13094 Administration single or combination vac cine inc oral 12:56:39 CDT CPT-39575 Zoster Vaccine (Zostavax) 12:56:39 CDT 2012 CPT-37996 Venipuncture Draw Fee 10:58:57 CDT CPT-39883 Sono pelvis non OB uterus ovaries cervix 17:45:04 CDT CPT-43570 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
--- OUTSIDE RECORDS SUMMARY | 2019-10-27 13:26 | XMS REPORT | Clinical Summary ---
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 Benign neoplasm of colon PERIPHERAL NEUROPATHY [...] y atherosclerosis of unspecified type of vessel, [place] or graft OTH NONSPC ABN FINDNG RAD&OTH [...] MISC Test twice a day LANCET S 77405295205 Active Baltazar Childers MD Active TRUEDRAW LANCING DEVICE MISC Test twice a day L ANCET DEVICES 53326241950 Active Baltazar Childers MD Active TRUETRACK TEST STRP Test twice a day GLUCOSE BLOO D 00034497632 Active Baltazar Childers MD Active TRUETRACK BLOOD GLUCOSE W/DEVICE KIT Test twice a day BLOOD GLUCOSE MONITORING SUPPL 07310500384 Active Bella Suarez APRN Active HYDROCODONE-ACETAMINOPHEN 7.5-325 MG TABS Take 1 tab every 6-8 hour s PRN HYDROCODONE-ACETAMINOPHEN 71195925805 Active Baltazar Childers MD Active NORTRIPTYLINE HCL 50 MG CAPS 1 every night for neuropathy 4 NORTRIPTYLINE HCL 40383788289 Active Bella Suarez APRN Active GABAPENTIN 300 MG CAPS 1 three times a day GABAPE NTIN 88695063243 Active Baltazar Childers MD Active GABAPENTIN 300 MG CAPS 1 po qd x 2 days, then 1 po BID x 2 d ays, then 1 po TID GABAPENTIN 33876949266 No Longer Active Baltazar silverman MD Active TRAMADOL HCL 50 MG TABS 1 twice a day as needed for pain TRAMADOL HCL 84743478388 Active Baltazar Childers MD Active NAPROXEN 500 MG TABS 1 tablet by mouth twice daily NAPROXEN 99944335626 No Longer Active Baltazar Childers MD Active PROAIR HFA 108 (90 BASE) MCG/ACT AERS 2 puffs four times a d ay as needed ALBUTEROL SULFATE 76604346628 Active Baltazar Childers MD Active DEPO-TESTOSTERONE 200 MG/ML OIL as directed RUFINO TOSTERONE CYPIONATE 74326644022 No Longer Active Baltazar Childers MD Active LIPITOR 20 MG TABS Take one by mouth daily in evening ATORVASTATIN CALCIUM 38743654490 No Longer Active Baltazar Childers MD Activ e CRESTOR 10 MG TABS 1 by mouth every day R OSUVASTATIN CALCIUM 59447972487 No Longer Active Baltazar Childers MD Activ e PHENTERMINE HCL 37.5 MG TABS Take one by mouth daily 2 PHENTERMINE HCL 49495672144 No Longer Active Baltazar Childers MD Activ e ROBAXIN-750 750 MG TABS Take one by mouth daily ME THOCARBAMOL 41998968860 Active Baltazar Childers MD Active TIZANIDINE HCL 4 MG TABS 1 daily as needed for muscle spasm 2011 TIZANIDINE HCL 57993434096 No Longer Active Dawna Salazar RN Active Snapshot InteractiveUCH ULTRA BLUE STRP Test twice a day GLUCO SE BLOOD 96145587507 Active Baltazar Childers MD Active LLNGVWRFXT-BXNX-[id number] 50-325-40 MG TABS 1 four time s a day as needed for heacache CAGELYUPNF-YVXO-DIRUVEHU 69865526446 Active Baltazar Childers MD Active SUMATRIPTAN SUCCINATE 100 MG TABS 1 tablet by mouth at onset of migraine as needed SUMATRIPTAN SUCCINATE 09939607645 Active Baltazar barron MD Active LORATADINE 10 MG TABS Take one by mouth daily LORATADINE 70262405018 Active Baltazar Childers MD Active FUROSEMIDE 40 MG TABS Take one by mouth daily FUROSEMIDE 18722606060 Active Baltazar Childers MD Active LISINOPRIL 20 MG TABS Take one by mouth daily at bedtime LISINOPRIL 45764311665 Active Bella Suarez APRN Active OMEPRAZOLE 20 MG CPDR Take one by mouth daily OMEPRAZOLE 36099070209 Active Baltazar Childers MD Active HYDROXYZINE HCL 25 MG TABS Take one by mouth daily HYDROXYZINE HCL 72595602171 Active Baltazar Childers MD Active GLIPIZIDE 10 MG TABS 1 tablet by mouth twice daily GLIPIZIDE 42479252462 Active Baltazar Childers MD Active ALPRAZOLAM 1 MG TABS 1 tablet by mouth daily at bedtime for restles s leg ALPRAZOLAM 97764622920 Active Baltazar Childers MD Active METFORMIN HCL 1000 MG TABS Take one by mouth twice daily METFORMIN HCL 65175711012 Active Baltazar Childers MD Active TIZANIDINE HCL 4 MG TABS 1 daily as needed for muscle spasm 2011 TIZANIDINE HCL 4 MG TABS 611794 TIZANIDINE HCL Inactiv e PHENTERMINE HCL 37.5 MG TABS Take one by mouth daily 2 PHENTERMINE HCL 37.5 MG TABS 265220 PHENTERMINE HCL Inactive CRESTOR 10 MG TABS 1 by mouth every day C RESTOR 10 MG TABS ROSUVASTATIN CALCIUM Inactive LIPITOR 20 MG TABS Take one by mouth daily in evening LIPITOR 20 MG TABS 295711 ATORVASTATIN CALCIUM Inactive DEPO-TESTOSTERONE 200 MG/ML OIL as directed 8 DEPO-TESTOSTERONE 200 MG/ML OIL 284687 TESTOSTERONE CYPIONATE Inactive NAPROXEN 500 MG TABS 1 tablet by mouth twice daily 201 07/27/22 NAPROXEN 500 MG TABS 434312 NAPROXEN Inactive GABAPENTIN 300 MG CAPS 1 po qd x 2 days, then 1 po BID x 2 d ays, then 1 po TID GABAPENTIN 300 MG CAPS 129415 GABAPENTIN Inact amie Immunizations Vaccine Administration Date Value Standard Floyd cription pneumococcal immunization administered Pneumovax 23 [CVX33] pneumococcal polysaccharide vaccine, 23 valent Seasonal influenza vaccine, injectable, containing preservative, for > 3 years old (Afluria, FluLaval, Fluzone, Fluvirin, Fluarix, Agriflu(>= 18 yo)) Fluzone (>3 yrs.) [[id number]] Influenza, seasonal, inject able Seasonal influenza vaccine, injectable, containing preservative, for > 3 years old (Afluria, FluLaval, Fluzone, Fluvirin, Fluarix, Agriflu(>= 18 yo)) Fluzone (>3 yrs.) [[id number]] Influenza, seasonal, inject able Vital Signs Date [...] Panel - Chemistry sodium, serum 139 mmol/L 361-785 0510/01/20 potassium, serum 5.3 mmol/L 3.5-5.2 chloride, serum [...] mg/g mg/g{creat} 0-29 cholesterol, serum 319 mg/dL 196-856 4559/08/21 triglyceride, serum, fasting 546 mg/dL 30-200 HDL cholesterol, serum 39 mg/dL 32-96 LDL cholesterol, serum 167.00 mg/dL 5.00-130.00 hemoglobin A1C, blood, as % of total hemoglobin 7.7 % 4.3-6.0 sodium, serum 138 mmol/L 912-205 6204/08/21 potassium, serum 4.3 mmol/L 3.5-5.2 chloride, serum [...] 0-19 Encounters Code Encounter Date Provider Facility CPT-30545 Level 4 Est. Patient 14:15:19 CDT Baltazar Childers MD [facility] CPT-16858 Level 4 Est. Patient 12:20:13 CDT Baltazar Childers MD [facility] CPT-37381 Level 4 Est. 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 Patient 14:18:34 NYLON MACHINE OPERATOR Baltazar Childers MD [facility] CPT-70252 Level 4 Est. Patient 15:18:29 CDT Baltazar Childers MD [facility] CPT-37331 Level 3 Est. Patient 12:45:34 CDT Baltazar Childers MD [facility] CPT-72034 Level 3 Est. Patient 10:10:11 CDT Baltazar Childers MD [facility] CPT-79641 Level 3 Est. Patient 14:07:50 CDT Baltazar Childers MD [facility] CPT-03214 Level 4 Est. 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 Patient 14:45:38 CDT Baltazar Childers MD [facility] CPT-87250 Level 4 New Patient 12:30:48 CDT Baltazar hinton MD [facility] Procedures Code Procedure Name Date Entry Date Standard Desc ription CPT-50300 Venipuncture Draw Fee 12:10:27 NYLON MACHINE OPERATOR CPT-72965 Fluzone Quadrivalent Intramuscular Suspe nsion 0.5 ML 10:49:13 CDT CPT-90614 First Vx Component - Ix admi n via ID IM or jet inj without physician counseling 15:17:19 NYLON MACHINE OPERATOR CPT-95980 Pneumovax 23 15:17:19 NYLON MACHINE OPERATOR CPT-14474 Pneumovax 14:52:45 NYLON MACHINE OPERATOR CPT-98845 Venipuncture Draw Fee 14:06:30 NYLON MACHINE OPERATOR CPT-000 Give Appropriate Flu Vaccine 14:18:34 NYLON MACHINE OPERATOR 2 CPT-71046 Administration single or combination vac cine inc oral 14:46:00 NYLON MACHINE OPERATOR CPT-42333 Influenza split virus > age 3 14:46:00 NYLON MACHINE OPERATOR CPT-OV Office Visit 19:13:16 CDT CPT-43222 Zostavax 18:41:56 CDT CPT-94154 Administration single or combination vac cine inc oral 12:56:39 CDT CPT-91005 Zoster Vaccine (Zostavax) 12:56:39 CDT 2012 CPT-66945 Venipuncture Draw Fee 10:58:57 CDT CPT-15107 Sono pelvis non OB uterus ovaries cervix 17:45:04 CDT CPT-53759 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
--- OUTSIDE RECORDS SUMMARY | 2019-10-27 13:26 | XMS REPORT | Clinical Summary ---
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 Benign neoplasm of colon PERIPHERAL NEUROPATHY [...] atherosclerosis of unspecified type of vessel, [place] or graft OTH NONSPC ABN [...] a day as needed 2014 NAPROXEN SODIUM 97072121305 Active Baltazar Childers MD Active FUROSEMIDE 40 MG TABS Take one by mouth daily FUROSEMIDE 98306968041 Active Baltazar Childers MD Active LISINOPRIL 20 MG TABS Take one by mouth daily at bedtime LISINOPRIL 50794526599 Active Baltazar Childers MD Active ONETOUCH ULTRA BLUE STRP Test twice a day GLUCO SE BLOOD 83777726501 No Longer Active Baltazar Childers MD Active TRUEPLUS LANCETS 33G MISC Test twice a day LANCET S 58898682368 Active Baltazar Childers MD Active TRUEDRAW LANCING DEVICE MISC Test twice a day L ANCET DEVICES 97034691998 Active Baltazar Childers MD Active TRUETRACK TEST STRP Test twice a day GLUCOSE BLOO D 55884685634 Active Baltazar Childers MD Active TRUETRACK BLOOD GLUCOSE W/DEVICE KIT Test twice a day BLOOD GLUCOSE MONITORING SUPPL 22373928661 Active Baltazar Childers MD Activ e HYDROCODONE-ACETAMINOPHEN 7.5-325 MG TABS Take 1 tab every 6-8 hour s PRN HYDROCODONE-ACETAMINOPHEN 95625018434 Active Baltazar Childers MD Active NORTRIPTYLINE HCL 50 MG CAPS 1 every night for neuropathy 4 NORTRIPTYLINE HCL 78646419058 Active Baltazar Childers MD Acti ve GABAPENTIN 300 MG CAPS 1 three times a day GABAPE NTIN 22728097962 Active Kelly Iraheta LPN Active GABAPENTIN 300 MG CAPS 1 po qd x 2 days, then 1 po BID x 2 d ays, then 1 po TID GABAPENTIN 09716775031 No Longer Active Baltazar silverman MD Active TRAMADOL HCL 50 MG TABS 1 twice a day as needed for pain TRAMADOL HCL 73263452848 Active Baltazar Childers MD Active NAPROXEN 500 MG TABS 1 tablet by mouth twice daily NAPROXEN 08514182705 No Longer Active Baltazar Childers MD Active PROAIR HFA 108 (90 BASE) MCG/ACT AERS 2 puffs four times a d ay as needed ALBUTEROL SULFATE 49436080287 Active Baltazar Childers MD Active DEPO-TESTOSTERONE 200 MG/ML OIL as directed RUFINO TOSTERONE CYPIONATE 94017003981 No Longer Active Baltazar Childers MD Active LIPITOR 20 MG TABS Take one by mouth daily in evening ATORVASTATIN CALCIUM 04488152598 No Longer Active Baltazar Childers MD Activ e CRESTOR 10 MG TABS 1 by mouth every day R OSUVASTATIN CALCIUM 36398196288 No Longer Active Baltazar Childers MD Activ e PHENTERMINE HCL 37.5 MG TABS Take one by mouth daily 2 PHENTERMINE HCL 55216295255 No Longer Active Baltazar Childers MD Activ e ROBAXIN-750 750 MG TABS Take one by mouth daily ME THOCARBAMOL 93588880833 Active Baltazar Childers MD Active TIZANIDINE HCL 4 MG TABS 1 daily as needed for muscle spasm 2011 TIZANIDINE HCL 28008633703 No Longer Active Dawna Salazar RN Active [id number] 50-325-40 MG TABS 1 four time s a day as needed for heacache [id number]-[id number] 79203527880 Active Baltazar Childers MD Active SUMATRIPTAN SUCCINATE 100 MG TABS 1 tablet by mouth at onset of migraine as needed SUMATRIPTAN SUCCINATE 37858405394 Active Baltazar bynum MD Active LORATADINE 10 MG TABS Take one by mouth daily LORATADINE 08470609760 Active Baltazar Childers MD Active OMEPRAZOLE 20 MG CPDR Take one by mouth daily OMEPRAZOLE 69811699029 Active Baltazar Childers MD Active HYDROXYZINE HCL 25 MG TABS Take one by mouth daily HYDROXYZINE HCL 93260805554 Active Dawna Lew Active GLIPIZIDE 10 MG TABS 1 tablet by mouth twice daily GLIPIZIDE 50200050533 Active Baltazar Childers MD Active ALPRAZOLAM 1 MG TABS 1 tablet by mouth daily at bedtime for restles s leg ALPRAZOLAM 81038121018 Active Baltazar Childers MD Active METFORMIN HCL 1000 MG TABS Take one by mouth twice daily METFORMIN HCL 06881836312 Active Baltazar Childers MD Active TIZANIDINE HCL 4 MG TABS 1 daily as needed for muscle spasm 2011 TIZANIDINE HCL 4 MG TABS 601993 TIZANIDINE HCL Inactiv e PHENTERMINE HCL 37.5 MG TABS Take one by mouth daily 2 PHENTERMINE HCL 37.5 MG TABS 015353 PHENTERMINE HCL Inactive CRESTOR 10 MG TABS 1 by mouth every day C RESTOR 10 MG TABS ROSUVASTATIN CALCIUM Inactive LIPITOR 20 MG TABS Take one by mouth daily in evening LIPITOR 20 MG TABS 665601 ATORVASTATIN CALCIUM Inactive DEPO-TESTOSTERONE 200 MG/ML OIL as directed 8 DEPO-TESTOSTERONE 200 MG/ML OIL 947172 TESTOSTERONE CYPIONATE Inactive NAPROXEN 500 MG TABS 1 tablet by mouth twice daily 201 07/27/22 NAPROXEN 500 MG TABS 857168 NAPROXEN Inactive GABAPENTIN 300 MG CAPS 1 po qd x 2 days, then 1 po BID x 2 d ays, then 1 po TID GABAPENTIN 300 MG CAPS 331229 GABAPENTIN Inact amie ONETOUCH ULTRA BLUE STRP Test twice a day ONETOUCH ULTRA BLUE STRP GLUCOSE BLOOD Inactive Immunizations Vaccine Administration Date Value Standard Floyd cription pneumococcal immunization administered Pneumovax 23 [CVX33] pneumococcal polysaccharide vaccine, 23 valent Seasonal influenza vaccine, injectable, containing preservative, for > 3 years old (Afluria, FluLaval, Fluzone, Fluvirin, Fluarix, Agriflu(>= 18 yo)) Fluzone (>3 yrs.) [[id number]] Influenza, seasonal, inject able Seasonal influenza vaccine, injectable, containing preservative, for > 3 years old (Afluria, FluLaval, Fluzone, Fluvirin, Fluarix, Agriflu(>= 18 yo)) Fluzone (>3 yrs.) [[id number]] Influenza, seasonal, inject able Vital Signs Date [...] - Chem istry sodium, serum 140 mmol/L 643-105 2117/05/05 potassium, serum 4.9 mmol/L 3.5-5.2 chloride, serum 99 mmol/L 98-107 carbon dioxide, venous blood 34.3 mmol/L 21.0-32 .0 blood glucose 132 mg/dL 65-110 calcium, serum 10.1 mg/dL 8.5-10.1 urea nitrogen, blood 23 mg/dL 7-18 creatinine, serum 2.00 mg/dL 0.60-1.30 Lab Report: CBC, Renal Panel - Chemistry sodium, serum 139 mmol/L 602-722 1279/01/20 potassium, serum 5.3 mmol/L 3.5-5.2 chloride, serum [...] 4.3-6.0 Encounters Code Encounter Date Provider Facility CPT-39980 Level 4 Est. Patient 15:42:12 CDT Baltazar Childers MD [facility] CPT-58386 Level 4 Est. Patient 11:29:55 CDT Baltazar Childers MD [facility] CPT-15785 Level 4 Est. Patient 14:15:19 CDT Baltazar Childers MD [facility] CPT-11362 Level 4 Est. Patient 12:20:13 CDT Baltazar Childers MD [facility] CPT-91999 Level 4 Est. Patient 14:52:45 HOSPITAL ORDERLY Baltazar Childers MD [facility] CPT-62225 Level 4 Est. Patient 14:18:34 HOSPITAL ORDERLY Baltazar Childers MD [facility] CPT-08974 Level 4 Est. Patient 15:18:29 CDT Baltazar Childers MD [facility] CPT-19235 Level 3 Est. Patient 12:45:34 CDT Baltazar Childers MD [facility] CPT-08096 Level 3 Est. Patient 10:10:11 CDT Baltazar Childers MD [facility] CPT-28788 Level 3 Est. Patient 14:07:50 CDT Baltazar Childers MD [facility] CPT-44967 Level 4 Est. Patient 12:26:10 HOSPITAL ORDERLY Baltazar Childers MD [facility] CPT-92568 Level 4 Est. Patient 14:45:38 CDT Baltazar Childers MD [facility] CPT-93598 Level 4 New Patient 12:30:48 CDT Baltazar hinton MD [facility] Procedures Code Procedure Name Date Entry Date Standard Desc ription CPT-77499 Venipuncture Draw Fee 12:10:27 HOSPITAL ORDERLY CPT-51384 Fluzone Quadrivalent Intramuscular Suspe nsion 0.5 ML 10:49:13 CDT CPT-47999 First Vx Component - Ix admi n via ID IM or jet inj without physician counseling 15:17:19 HOSPITAL ORDERLY CPT-87858 Pneumovax 23 15:17:19 HOSPITAL ORDERLY CPT-03687 Pneumovax 14:52:45 HOSPITAL ORDERLY CPT-16050 Venipuncture Draw Fee 14:06:30 HOSPITAL ORDERLY CPT-000 Give Appropriate Flu Vaccine 14:18:34 HOSPITAL ORDERLY 2 CPT-15160 Administration single or combination vac cine inc oral 14:46:00 HOSPITAL ORDERLY CPT-41317 Influenza split virus > age 3 14:46:00 HOSPITAL ORDERLY CPT-OV Office Visit 19:13:16 CDT CPT-20480 Zostavax 18:41:56 CDT CPT-94137 Administration single or combination vac cine inc oral 12:56:39 CDT CPT-78299 Zoster Vaccine (Zostavax) 12:56:39 CDT 2012 CPT-20274 Venipuncture Draw Fee 10:58:57 CDT CPT-01631 Sono pelvis non OB uterus ovaries cervix 17:45:04 CDT CPT-86069 Sono retroperitoneal complete kidneys an d bladder 17:14:36 CDT CPT-OV Office Visit 14:59:38 HOSPITAL ORDERLY CPT-J1070 Depo Testosterone 100 mg 14:50:13 CDT 03/05 CPT-32166 Abx/Therapy Injection 14:50:13 CDT CPT-61806 Administration single or combination vac cine inc oral 14:34:43 CDT CPT-90322 Influenza split virus > age 3 14:34:43 CDT CPT-J1070 Depo Testosterone 100 mg 17:37:13 CDT 01/11 CPT-95786 Abx/Therapy Injection 17:37:13 CDT CPT-79095 Venipuncture Draw Fee 16:30:13 CDT CPT-67635 Venipuncture Draw Fee 16:29:43 CDT CPT-J1070 Depo Testosterone 100 mg 14:45:38 CDT 01/11
--- OUTSIDE RECORDS SUMMARY | 2019-10-27 13:26 | XMS REPORT | Clinical Summary ---
[...] libido COLON POLYPS 211.3 Resolved Lolis Thomas [employer] OFFIC[employer] Benign neoplasm of colon PERIPHERAL NEUROPATHY 356.9 Active Baltazar Nickerson MD Unspecified hereditary and idiopathic peripheral neuropathy PERSONAL HISTORY OF COLONIC POLYPS V12.72 Active 2 Lolis Thomas APRN Personal history of colonic polyps PARESTHESIA, HANDS 782.0 Active Blatazar Childers MD Disturbance of skin sensation FH [...] 1 tablet daily for 4 days AZITHROMYCIN 36232761251 No Longer A ctive Baltazar Childers MD Active LANTUS SOLOSTAR 100 UNIT/ML SUBCUTANEOUS SOLUTION PEN- INJECTOR 30 units SC daily INSULIN GLARGINE 80285410114 Active Baltazar Childers MD Active AMLODIPINE BESYLATE 5 MG ORAL TABLET 1 tab daily for HTN AMLODIPINE BESYLATE 50892379277 Active Baltazar Childers MD Active SYNTHROID 100 MCG ORAL TABLET 1 tablet by mouth daily LEVOTHYROXINE SODIUM 33065976236 Active Baltazar Childers MD Active GLIPIZIDE 10 MG ORAL TABLET take 2 tablets twice daily GLIPIZIDE 30469932436 Active Baltazar Childers MD Active SUCRALFATE 1 GM ORAL TABLET 1 four times a day to coat the stoma ch SUCRALFATE 08276107834 No Longer Active Baltazar Childers MD Active PEN NEEDLES 31G X 6 MM use 1 daily INSULIN PEN NE EDLE 95958005876 Active KENDALL Juarez Active TOUJEO SOLOSTAR 300 UNIT/ML SUBCUTANEOUS SOLUTION PEN- INJECTOR 10 units SC daily INSULIN GLARGINE 06975109496 No Longer Active Rola ARGUETA Active NAPROXEN SODIUM 220 MG ORAL TABLET 1 three times a day as needed NAPROXEN SODIUM 82636956303 No Longer Active Baltazar Childers MD Active ATORVASTATIN CALCIUM 20 MG ORAL TABLET Take 1 tab daily ATORVASTATIN CALCIUM 39590853516 Active Baltazar Childers MD A ctive FUROSEMIDE 40 MG ORAL TABLET Take one by mouth daily FUROSEMIDE 84557210486 Active Jessy Arellano LPN Active LISINOPRIL 20 MG ORAL TABLET Take one by mouth daily at bedtime LISINOPRIL 11964174932 No Longer Active Baltazar Childers MD Active ONETOUCH ULTRA BLUE IN VITRO STRIP Test twice a day 07/11/11 GLUCOSE BLOOD 56941357664 No Longer Active Baltazar Childers MD Acti ve TRUEPLUS LANCETS 33G Test twice a day LANCETS 5321408 7282 Active KENDALL Juarze Active TRUEDRAW LANCING DEVICE Test twice a day LANCET DEVICES 19629748941 Active Baltazar Childers MD Active TRUETRACK TEST IN VITRO STRIP Test twice a day GLUCOSE BLOOD 48144422842 Active KENDALL Juarez Active TRUETRACK BLOOD GLUCOSE w/Device KIT Test twice a day BLOOD GLUCOSE MONITORING SUPPL 82761418400 Active Baltazar Childers MD Activ e HYDROCODONE-ACETAMINOPHEN 7.5-325 MG ORAL TABLET Take 1 tab every 6-8 hours PRN HYDROCODONE-ACETAMINOPHEN 82264912935 Active Baltazar Nickerson MD Active NORTRIPTYLINE HCL 50 MG ORAL CAPSULE 1 every night for neuropathy 2 NORTRIPTYLINE HCL 89063555494 Active Baltazar Childers MD Acti ve GABAPENTIN 300 MG ORAL CAPSULE 1 three times a day GABAPENTIN 15263718478 Active Baltazar Childers MD Active GABAPENTIN 300 MG ORAL CAPSULE 1 po qd x 2 days, then 1 po BID x 2 days, then 1 po TID GABAPENTIN 30249871537 No Longer Active Baltazar Childers MD Active TRAMADOL HCL 50 MG ORAL TABLET 1 twice a day as needed for pain 201 07/27/28 TRAMADOL HCL 50960249319 Active Baltazar Childers MD Active NAPROXEN 500 MG ORAL TABLET 1 tablet by mouth twice daily NAPROXEN 71159155801 No Longer Active Baltazar Childers MD Active PROAIR HFA 108 (90 Base) MCG/ACT INHALATION AEROSOL SO LUTION 2 puffs four times a day as needed ALBUTEROL SULFATE 60330632158 Active Paul Childers MD Active DEPO-TESTOSTERONE 200 MG/ML INTRAMUSCULAR SOLUTION as directed TESTOSTERONE CYPIONATE 56129548150 No Longer Active Baltazar Childers MD Active LIPITOR 20 MG ORAL TABLET Take one by mouth daily in evening ATORVASTATIN CALCIUM 35344403361 No Longer Active Baltazar Childers MD Active CRESTOR 10 MG ORAL TABLET 1 by mouth every day ROSUVASTATIN CALCIUM 90400980101 No Longer Active Baltazar Childers MD Active PHENTERMINE HCL 37.5 MG ORAL TABLET Take one by mouth daily PHENTERMINE HCL 84301195077 No Longer Active Baltazar Childers MD Ac tive ROBAXIN-750 750 MG ORAL TABLET Take one by mouth daily METHOCARBAMOL 14558325624 Active Baltazar Childers MD Active TIZANIDINE HCL 4 MG ORAL TABLET 1 daily as needed for muscle spa sm TIZANIDINE HCL 91613261980 No Longer Active Dawna Salazar RN Active OMBCZQHXOF-NRPV-XTBSHTDV 50-325-40 MG ORAL TABLET 1 fo ur times a day as needed for heacache IOSPQORSAT-TMYQ-LOTTGELL 24852404550 Active Baltazar Childers MD Active SUMATRIPTAN SUCCINATE 100 MG ORAL TABLET 1 tablet by m outh at onset of migraine as needed SUMATRIPTAN SUCCINATE 02910784179 Active Bertha Vazquez LPN Active LORATADINE 10 MG ORAL TABLET Take one by mouth daily LORATADINE 12427980150 Active Baltazar Childers MD Active OMEPRAZOLE 20 MG ORAL CAPSULE DELAYED RELEASE Take one by mouth jostin ly OMEPRAZOLE 90150781839 Active Baltazar Childers MD Active HYDROXYZINE HCL 25 MG ORAL TABLET Take one by mouth daily HYDROXYZINE HCL 30148856796 Active Baltazar Childers MD Active ALPRAZOLAM 1 MG ORAL TABLET 1 tablet by mouth daily at bedti nv for restless leg ALPRAZOLAM 49185282557 Active Baltazar Childers MD Active METFORMIN HCL 1000 MG ORAL TABLET Take one by mouth twice daily METFORMIN HCL 48236734237 Active Baltazar Childers MD Active TIZANIDINE HCL 4 MG ORAL TABLET 1 daily as needed for muscle spa sm TIZANIDINE HCL 4 MG ORAL TABLET 332429 TIZANIDINE HCL Inactive PHENTERMINE HCL 37.5 MG ORAL TABLET Take one by mouth daily PHENTERMINE HCL 37.5 MG ORAL TABLET 851763 PHENTERMINE HCL Inac tive CRESTOR 10 MG ORAL TABLET 1 by mouth every day CRESTOR 10 MG ORAL TABLET 691183 ROSUVASTATIN CALCIUM Inactive LIPITOR 20 MG ORAL TABLET Take one by mouth daily in evening LIPITOR 20 MG ORAL TABLET 304276 ATORVASTATIN CALCIUM Inactive DEPO-TESTOSTERONE 200 MG/ML INTRAMUSCULAR SOLUTION as directed DEPO-TESTOSTERONE 200 MG/ML INTRAMUSCULAR SOLUTION 732180 RUFINO TOSTERONE CYPIONATE Inactive NAPROXEN 500 MG ORAL TABLET 1 tablet by mouth twice daily NAPROXEN 500 MG ORAL TABLET 532735 NAPROXEN Inactive GABAPENTIN 300 MG ORAL CAPSULE 1 po qd x 2 days, then 1 po BID x 2 days, then 1 po TID GABAPENTIN 300 MG ORAL CAPSULE 025921 GABAP ENTIN Inactive ONETOUCH ULTRA BLUE IN VITRO STRIP Test twice a day 07/11/11 ONETOUCH ULTRA BLUE IN VITRO STRIP GLUCOSE BLOOD Inact amie NAPROXEN SODIUM 220 MG ORAL TABLET 1 three times a day as needed NAPROXEN SODIUM 220 MG ORAL TABLET 483229 NAPROXEN SODI UM Inactive TOUJEO SOLOSTAR 300 UNIT/ML SUBCUTANEOUS SOLUTION PEN- INJECTOR 10 units SC daily TOUJEO SOLOSTAR 300 UNIT/ML SUBCUTANEOUS SOLUTION PEN-INJECTOR INSULIN GLARGINE Inactive SUCRALFATE 1 GM ORAL TABLET 1 four times a day to coat the stoma ch SUCRALFATE 1 GM ORAL TABLET 356550 SUCRALFATE Inac tive ZITHROMAX Z-ISAIAS 250 MG ORAL TABLET Take two tablets to day and then 1 tablet daily for 4 days ZITHROMAX Z-ISAIAS 250 MG ORAL TAB LET 883533 AZITHROMYCIN Inactive Immunizations Vaccine Administration Date Value Standard Floyd cription pneumococcal immunization administered Pneumovax 23 [CVX33] pneumococcal polysaccharide vaccine, 23 valent Seasonal influenza vaccine, injectable, containing preservative, for > 3 years old (Afluria, FluLaval, Fluzone, Fluvirin, Fluarix, Agriflu(>= 18 yo)) Fluzone (>3 yrs.) [AZO784] Influenza, seasonal, inject able Seasonal influenza vaccine, injectable, containing preservative, for > 3 years old (Afluria, FluLaval, Fluzone, Fluvirin, Fluarix, Agriflu(>= 18 yo)) Fluzone (>3 yrs.) [YKG521] Influenza, seasonal, inject able Vital Signs Date [...] - Chem istry sodium, serum 139 mmol/L 577-636 4611/10/03 potassium, serum 4.7 mmol/L 3.5-5.2 chloride, serum 98 mmol/L 98-107 carbon dioxide, venous blood 28.7 mmol/L 21.0-32 .0 blood glucose 218 mg/dL 65-110 calcium, serum 9.8 mg/dL 8.5-10.1 urea nitrogen, blood 19 mg/dL 7-18 creatinine, serum 1.68 mg/dL 0.60-1.30 Lab Report: Basic Metabolic Panel, HGBA1 C - Chemistry sodium, serum 143 mmol/L 024-584 6686/06/19 potassium, serum 5.9 mmol/L 3.5-5.2 chloride, serum 105 mmol/L 98-107 carbon dioxide, venous blood 30.2 mmol/L 21.0-32 .0 blood glucose 189 mg/dL 65-110 calcium, serum 9.7 mg/dL 8.5-10.1 urea nitrogen, blood 37 mg/dL 7-18 creatinine, serum 2.11 mg/dL 0.55-1.30 hemoglobin A1C, blood, as % of total hemoglobin 8.2 % 4.3-6.0 Lab Report: CBC, Renal Panel - Chemistry sodium, serum 142 mmol/L 974-564 0604/08/11 potassium, serum 4.8 mmol/L 3.5-5.2 chloride, serum [...] Panel - Chemistry sodium, serum 143 mmol/L 798-940 7092/12/19 carbon dioxide, venous blood 32.5 mmol/L 21.0-32 .0 potassium, serum 4.9 mmol/L 3.5-5.2 chloride, serum 101 mmol/L 98-107 blood glucose 129 mg/dL 65-110 urea nitrogen, blood 18 mg/dL 7-18 creatinine, serum 1.79 mg/dL 0.55-1.30 alanine aminotransferase (SGPT), serum 34 U/L 12-78 aspartate aminotransferase (SGOT), serum 26 U/L 15-37 calcium, serum 8.9 mg/dL 8.5-10.1 bilirubin, serum, total 0.30 mg/dL 0.00-1.00 cholesterol, serum 214 mg/dL 018-055 4426/12/19 triglyceride, serum, fasting 351 mg/dL 30-200 HDL [...] 4.3-6.0 Encounters Code Encounter Date Provider Facility CPT-59756 Level 4 Est. Patient 12:25:11 CDT Baltazar Childers MD [facility] CPT-49606 Level 4 Est. Patient 14:22:31 CDT Baltazar Childers MD [facility]-44173 Level 4 Est. Patient 15:44:38 CDT Shonna Elena CASTELLANOS [facility] CPT-90508 Level 4 Est. Patient 11:34:17 CDT Baltazar Childers MD [facility] CPT-16891 Level 3 Est. Patient 16:40:40 CDT Baltazar Childers MD [facility] CPT-96172 Level 4 Est. Patient 10:41:24 CDT Baltazar Childers MD [facility]-89111 Level 4 Est. Patient 16:01:48 CDT Baltazar Childers MD [facility] CPT-09956 Level 4 Est. Patient 16:54:07 WELDING MACHINE OPERATOR Baltazar Childers MD [facility]-21196 Level 4 Est. Patient 15:42:12 CDT Baltazar Childers MD [facility] CPT-30779 Level 4 Est. Patient 11:29:55 CDT Baltazar Childers MD [facility] CPT-01956 Level 4 Est. Patient 14:15:19 CDT Baltazar Childers MD [facility] CPT-55200 Level 4 Est. Patient 12:20:13 CDT Baltazar Childers MD [facility] CPT-55788 Level 4 Est. Patient 14:52:45 WELDING MACHINE OPERATOR Baltazar Childers MD [facility] CPT-83819 Level 4 Est. Patient 14:18:34 WELDING MACHINE OPERATOR Baltazar Childers MD [facility]-95815 Level 4 Est. Patient 15:18:29 CDT Baltazar Childers MD [facility] CPT-84935 Level 3 Est. Patient 12:45:34 CDT Baltazar Childers MD [facility] CPT-63659 Level 3 Est. Patient 10:10:11 CDT Baltazar Childers MD [facility] CPT-60297 Level 3 Est. Patient 14:07:50 CDT Baltazar Childers MD [facility] CPT-35342 Level 4 Est. Patient 12:26:10 WELDING MACHINE OPERATOR Baltazar Childers MD [facility] CPT-81558 Level 4 Est. Patient 14:45:38 CDT Baltazar Childers MD [facility] CPT-68933 Level 4 New Patient 12:30:48 CDT Baltazar hinton MD [facility] Procedures Code Procedure Name Date Entry Date Standard Desc ription CPT-78568 First Vx - Ix admin via ID I M or jet injects without counseling by physician 13:08:59 CDT CPT-08950 Fluzone Quadrivalent Intramuscular Suspe nsion 0.5 ML 13:08:59 CDT CPT-27108 Venipuncture Draw Fee 12:04:12 CDT CPT-92834 Lipid - LAB USE ONLY 17:39:15 WELDING MACHINE OPERATOR 9 CPT-33044 HGBA1C - LAB USE ONLY 17:39:15 WELDING MACHINE OPERATOR CPT-71380 CMP - LAB USE ONLY 17:39:14 WELDING MACHINE OPERATOR CPT-07180 Venipuncture Draw Fee 17:39:14 WELDING MACHINE OPERATOR CPT-42824 First Vx - Ix admin via ID I M or jet injects without counseling by physician 16:55:17 WELDING MACHINE OPERATOR CPT-92202 Fluzone Quadrivalent Intramuscular Suspe nsion 0.5 ML 16:55:17 WELDING MACHINE OPERATOR CPT-96116 Renal Panel - LAB USE ONLY 17:39:20 CDT 201 10/31/07 CPT-16823 CBC - LAB USE ONLY 17:39:20 CDT CPT-78176 Venipuncture Draw Fee 17:39:20 CDT CPT-30239 Venipuncture Draw Fee 14:33:30 CDT CPT-32729 Renal Panel - LAB USE ONLY 14:33:30 CDT 201 10/31/07 CPT-26106 CBC - LAB USE ONLY 14:33:29 CDT CPT-45523 Venipuncture Draw Fee 14:50:21 WELDING MACHINE OPERATOR CPT-52102 Immunization Single Admin 17:35:35 CDT 2014 CPT-83577 Fluzone Quadrivalent preservative free ( >=3yrs.) 17:35:35 CDT CPT-00578 Venipuncture Draw Fee 12:10:27 WELDING MACHINE OPERATOR CPT-99743 Fluzone Quadrivalent Intramuscular Suspe nsion 0.5 ML 10:49:13 CDT CPT-70896 First Vx Component - Ix admi n via ID IM or jet inj without physician counseling 15:17:19 WELDING MACHINE OPERATOR CPT-70443 Pneumovax 23 15:17:19 WELDING MACHINE OPERATOR CPT-21836 Pneumovax 14:52:45 WELDING MACHINE OPERATOR CPT-25701 Venipuncture Draw Fee 14:06:30 WELDING MACHINE OPERATOR CPT-000 Give Appropriate Flu Vaccine 14:18:34 WELDING MACHINE OPERATOR 2 CPT-41057 Administration single or combination vac cine inc oral 14:46:00 WELDING MACHINE OPERATOR CPT-88755 Influenza split virus > age 3 14:46:00 WELDING MACHINE OPERATOR CPT-OV Office Visit 19:13:16 CDT CPT-76714 Zostavax 18:41:56 CDT CPT-85646 Administration single or combination vac cine inc oral 12:56:39 CDT CPT-92764 Zoster Vaccine (Zostavax) 12:56:39 CDT 2012 CPT-11936 Venipuncture Draw Fee 10:58:57 CDT CPT-78311 Sono pelvis non OB uterus ovaries cervix 17:45:04 CDT CPT-06506 Sono retroperitoneal complete kidneys an d bladder 17:14:36 CDT CPT-OV Office Visit 14:59:38 WELDING MACHINE OPERATOR CPT-J1070 Depo Testosterone 100 mg 14:50:13 CDT 03/05 CPT-89438 Abx/Therapy Injection 14:50:13 CDT CPT-56779 Administration single or combination vac cine inc oral 14:34:43 CDT CPT-24123 Influenza split virus > age 3 14:34:43 CDT CPT-J1070 Depo Testosterone 100 mg 17:37:13 CDT 01/11 CPT-79562 Abx/Therapy Injection 17:37:13 CDT CPT-84632 Venipuncture Draw Fee 16:30:13 CDT CPT-46997 Venipuncture Draw Fee 16:29:43 CDT CPT-J1070 Depo Testosterone 100 mg 14:45:38 CDT 01/11
--- OUTSIDE RECORDS SUMMARY | 2019-10-27 13:26 | XMS REPORT | Clinical Summary ---
Author Author Admin, Elba Lance [facility] Address Unknown Phone Unavailable Allergies, [...] libido COLON POLYPS 211.3 Resolved Lolis Thomas SETTER OFF Benign neoplasm of colon PERIPHERAL NEUROPATHY 356.9 [...] 1 tab daily for HTN AMLODIPINE BESYLATE 44169994146 Active KENDALL Juarez Active SYNTHROID 0.1 MG TAB 1 tablet by mouth daily LE VOTHYROXINE SODIUM 45813539197 Active Shonna Parker APRN Active GLIPIZIDE 10 MG TAB take 2 tablets twice daily GLIPIZIDE 56475241988 Active Baltazar Childers MD Active SUCRALFATE 1 GM TABS 1 four times a day to coat the stomach 2015 SUCRALFATE 47253084809 No Longer Active Baltazar Childers MD Active PEN NEEDLES 31G X 6 MM MISC use 1 daily INSULIN PEN NEEDLE 04752398539 Active Gato Rae MD Active TOUJEO SOLOSTAR 300 UNIT/ML SC SOPN 10 units SC daily INSULIN GLARGINE 51237289818 No Longer Active Martita Herbert ARGUETA Active LANTUS SOLOSTAR 100 UNIT/ML SC SOPN 10 units SC daily INSULIN GLARGINE 14536389430 Active KENDALL Juarez Active NAPROXEN SODIUM 220 MG ORAL TABS 1 three times a day as needed 2 NAPROXEN SODIUM 82567375537 No Longer Active Baltazar Childers MD Active ATORVASTATIN CALCIUM 20 MG ORAL TABS Take 1 tab daily ATORVASTATIN CALCIUM 97847419623 Active Baltazar Childers MD Active FUROSEMIDE 40 MG TABS Take one by mouth daily FUROSEMIDE 77406378222 Active Baltazar Childers MD Active LISINOPRIL 20 MG TABS Take one by mouth daily at bedtime LISINOPRIL 30005876269 No Longer Active Baltazar Childers MD Active ONETOUCH ULTRA BLUE STRP Test twice a day GLUCO SE BLOOD 84204586687 No Longer Active Baltazar Childers MD Active TRUEPLUS LANCETS 33G MISC Test twice a day LANCET S 56215956489 Active KENDALL Juarez Active TRUEDRAW LANCING DEVICE MISC Test twice a day L ANCET DEVICES 72774085169 Active Baltazar Childers MD Active TRUETRACK TEST STRP Test twice a day GLUCOSE BLOO D 14996925935 Active KENDALL Juarez Active TRUETRACK BLOOD GLUCOSE W/DEVICE KIT Test twice a day BLOOD GLUCOSE MONITORING SUPPL 11648056537 Active Baltazar Childers MD Activ e HYDROCODONE-ACETAMINOPHEN 7.5-325 MG TABS Take 1 tab every 6-8 hour s PRN HYDROCODONE-ACETAMINOPHEN 19356792813 Active Baltazar Childers MD Active NORTRIPTYLINE HCL 50 MG CAPS 1 every night for neuropathy 4 NORTRIPTYLINE HCL 50145206044 Active Baltazar Childers MD Acti ve GABAPENTIN 300 MG CAPS 1 three times a day GABAPE NTIN 36266796232 Active Baltazar Childers MD Active GABAPENTIN 300 MG CAPS 1 po qd x 2 days, then 1 po BID x 2 d ays, then 1 po TID GABAPENTIN 74632164530 No Longer Active Baltazar silverman MD Active TRAMADOL HCL 50 MG TABS 1 twice a day as needed for pain TRAMADOL HCL 24002506755 Active Baltazar Childers MD Active NAPROXEN 500 MG TABS 1 tablet by mouth twice daily NAPROXEN 43570381657 No Longer Active Baltazar Childers MD Active PROAIR HFA 108 (90 BASE) MCG/ACT AERS 2 puffs four times a d ay as needed ALBUTEROL SULFATE 91342986995 Active Baltazar Childers MD Active DEPO-TESTOSTERONE 200 MG/ML OIL as directed RUFINO TOSTERONE CYPIONATE 72468709177 No Longer Active Baltazar Childers MD Active LIPITOR 20 MG TABS Take one by mouth daily in evening ATORVASTATIN CALCIUM 04900348279 No Longer Active Baltazar Childers MD Activ e CRESTOR 10 MG TABS 1 by mouth every day R OSUVASTATIN CALCIUM 39980689089 No Longer Active Baltazar Childers MD Activ e PHENTERMINE HCL 37.5 MG TABS Take one by mouth daily 2 PHENTERMINE HCL 01200650825 No Longer Active Baltazar Childers MD Activ e ROBAXIN-750 750 MG TABS Take one by mouth daily ME THOCARBAMOL 70476166995 Active Baltazar Childers MD Active TIZANIDINE HCL 4 MG TABS 1 daily as needed for muscle spasm 2011 TIZANIDINE HCL 82000277009 No Longer Active Dawna Salazar RN Active [id number] 50-325-40 MG TABS 1 four time s a day as needed for heacache [id number] 36320380399 Active Baltazar Childers MD Active SUMATRIPTAN SUCCINATE 100 MG TABS 1 tablet by mouth at onset of migraine as needed SUMATRIPTAN SUCCINATE 42321270611 Active Shonna richey APRN Active LORATADINE 10 MG TABS Take one by mouth daily LORATADINE 21201247759 Active Bethrenetta Carr KENDALL Active OMEPRAZOLE 20 MG CPDR Take one by mouth daily OMEPRAZOLE 06735288464 Active Baltazar Childers MD Active HYDROXYZINE HCL 25 MG TABS Take one by mouth daily HYDROXYZINE HCL 93632376726 Active Baltazar Childers MD Active ALPRAZOLAM 1 MG TABS 1 tablet by mouth daily at bedtime for restles s leg ALPRAZOLAM 51776155960 Active Baltazar Childers MD Active METFORMIN HCL 1000 MG TABS Take one by mouth twice daily METFORMIN HCL 07470229855 Active Baltazar Childers MD Active TIZANIDINE HCL 4 MG TABS 1 daily as needed for muscle spasm 2011 TIZANIDINE HCL 4 MG TABS 708854 TIZANIDINE HCL Inactiv e PHENTERMINE HCL 37.5 MG TABS Take one by mouth daily 2 PHENTERMINE HCL 37.5 MG TABS 691681 PHENTERMINE HCL Inactive CRESTOR 10 MG TABS 1 by mouth every day C RESTOR 10 MG TABS 950734 ROSUVASTATIN CALCIUM Inactive LIPITOR 20 MG TABS Take one by mouth daily in evening LIPITOR 20 MG TABS 473433 ATORVASTATIN CALCIUM Inactive DEPO-TESTOSTERONE 200 MG/ML OIL as directed 8 DEPO-TESTOSTERONE 200 MG/ML OIL 651542 TESTOSTERONE CYPIONATE Inactive NAPROXEN 500 MG TABS 1 tablet by mouth twice daily 201 07/27/22 NAPROXEN 500 MG TABS 820975 NAPROXEN Inactive GABAPENTIN 300 MG CAPS 1 po qd x 2 days, then 1 po BID x 2 d ays, then 1 po TID GABAPENTIN 300 MG CAPS 020079 GABAPENTIN Inact amie ONETOUCH ULTRA BLUE STRP Test twice a day ONETOUCH ULTRA BLUE STRP GLUCOSE BLOOD Inactive NAPROXEN SODIUM 220 MG ORAL TABS 1 three times a day as needed 2 NAPROXEN SODIUM 220 MG ORAL TABS 588632 NAPROXEN SODIUM Inactive TOUJEO SOLOSTAR 300 UNIT/ML SC SOPN 10 units SC daily TOUJEO SOLOSTAR 300 UNIT/ML SC SOPN INSULIN GLARGINE Inac tive SUCRALFATE 1 GM TABS 1 four times a day to coat the stomach 2015 SUCRALFATE 1 GM TABS 663620 SUCRALFATE Inactive Immunizations Vaccine Administration Date Value Standard Floyd cription pneumococcal immunization administered Pneumovax 23 [CVX33] pneumococcal polysaccharide vaccine, 23 valent Seasonal influenza vaccine, injectable, containing preservative, for > 3 years old (Afluria, FluLaval, Fluzone, Fluvirin, Fluarix, Agriflu(>= 18 yo)) Fluzone (>3 yrs.) [[id number]] Influenza, seasonal, inject able Seasonal influenza vaccine, injectable, containing preservative, for > 3 years old (Afluria, FluLaval, Fluzone, Fluvirin, Fluarix, Agriflu(>= 18 yo)) Fluzone (>3 yrs.) [[id number]] Influenza, seasonal, inject able Vital Signs Date [...] C - Chemistry sodium, serum 143 mmol/L 075-384 7290/06/19 potassium, serum 5.9 mmol/L 3.5-5.2 chloride, serum 105 mmol/L 98-107 carbon dioxide, venous blood 30.2 mmol/L 21.0-32 .0 blood glucose 189 mg/dL 65-110 calcium, serum 9.7 mg/dL 8.5-10.1 urea nitrogen, blood 37 mg/dL 7-18 creatinine, serum 2.11 mg/dL 0.55-1.30 hemoglobin A1C, blood, as % of total hemoglobin 8.2 % 4.3-6.0 Lab Report: CBC, Renal Panel - Chemistry sodium, serum 142 mmol/L 113-418 1839/08/11 potassium, serum 4.8 mmol/L 3.5-5.2 chloride, serum [...] Panel - Chemistry sodium, serum 143 mmol/L 204-096 4652/12/19 carbon dioxide, venous blood 32.5 mmol/L 21.0-32 .0 potassium, serum 4.9 mmol/L 3.5-5.2 chloride, serum 101 mmol/L 98-107 blood glucose 129 mg/dL 65-110 urea nitrogen, blood 18 mg/dL 7-18 creatinine, serum 1.79 mg/dL 0.55-1.30 alanine aminotransferase (SGPT), serum 34 U/L 12-78 aspartate aminotransferase (SGOT), serum 26 U/L 15-37 calcium, serum 8.9 mg/dL 8.5-10.1 bilirubin, serum, total 0.30 mg/dL 0.00-1.00 cholesterol, serum 214 mg/dL 202-085 7640/12/19 triglyceride, serum, fasting 351 mg/dL 30-200 HDL [...] 4.3-6.0 Encounters Code Encounter Date Provider Facility CPT-95868 Level 4 Est. Patient 14:22:31 CDT Baltazar Childers MD [facility] CPT-42740 Level 4 Est. Patient 15:44:38 [facility] Level 4 Est. Patient 11:34:17 CDT Baltazar Childers MD [facility] CPT-11213 Level 3 Est. Patient 16:40:40 CDT Baltazar Childers MD [facility] CPT-25292 Level 4 Est. Patient 10:41:24 CDT Baltazar Childers MD [facility] CPT-34208 Level 4 Est. Patient 16:01:48 CDT Baltazar Childers MD [facility] CPT-15479 Level 4 Est. Patient 16:54:07 SUPERVISOR MARBLE Baltazar Childers MD [facility] CPT-85166 Level 4 Est. Patient 15:42:12 CDT Baltazar Childers MD [facility] CPT-39739 Level 4 Est. Patient 11:29:55 CDT Baltazar Childers MD [facility] CPT-87929 Level 4 Est. Patient 14:15:19 CDT Baltazar Childers MD [facility] CPT-76187 Level 4 Est. Patient 12:20:13 CDT Baltazar Childers MD [facility] CPT-60194 Level 4 Est. Patient 14:52:45 SUPERVISOR MARBLE Baltazar Childers MD [facility] CPT-78408 Level 4 Est. Patient 14:18:34 SUPERVISOR MARBLE Baltazar Childers MD [facility] CPT-53201 Level 4 Est. Patient 15:18:29 CDT Baltazar Childers MD [facility] CPT-03309 Level 3 Est. Patient 12:45:34 CDT Baltazar Childers MD [facility] CPT-94633 Level 3 Est. Patient 10:10:11 CDT Baltazar Childers MD [facility] CPT-83307 Level 3 Est. Patient 14:07:50 CDT Baltazar Childers MD [facility] CPT-66964 Level 4 Est. Patient 12:26:10 SUPERVISOR MARBLE Baltazar Childers MD [facility] CPT-45863 Level 4 Est. Patient 14:45:38 CDT Baltazar Childers MD [facility] CPT-67781 Level 4 New Patient 12:30:48 CDT Baltazar hinton MD [facility] Procedures Code Procedure Name Date Entry Date Standard Desc ription CPT-96738 Venipuncture Draw Fee 12:04:12 CDT CPT-92202 Lipid - LAB USE ONLY 17:39:15 SUPERVISOR MARBLE 9 CPT-75518 HGBA1C - LAB USE ONLY 17:39:15 SUPERVISOR [employer]BLE CPT-30274 CMP - LAB USE ONLY 17:39:14 SUPERVISOR [employer]BLE CPT-46759 Venipuncture Draw Fee 17:39:14 SUPERVISOR MARBLE CPT-82803 First Vx - Ix admin via ID I M or jet injects without counseling by physician 16:55:17 SUPERVISOR MARBLE CPT-58222 Fluzone Quadrivalent Intramuscular Suspe nsion 0.5 ML 16:55:17 SUPERVISOR MARBLE CPT-07044 Renal Panel - LAB USE ONLY 17:39:20 CDT 201 10/31/07 CPT-25221 CBC - LAB USE ONLY 17:39:20 CDT CPT-88305 Venipuncture Draw Fee 17:39:20 CDT CPT-76637 Venipuncture Draw Fee 14:33:30 CDT CPT-23803 Renal Panel - LAB USE ONLY 14:33:30 CDT 201 10/31/07 CPT-70063 CBC - LAB USE ONLY 14:33:29 CDT CPT-56866 Venipuncture Draw Fee 14:50:21 SUPERVISOR MARBLE CPT-16998 Immunization Single Admin 17:35:35 CDT 2014 CPT-03831 Fluzone Quadrivalent preservative free ( >=3yrs.) 17:35:35 CDT CPT-26192 Venipuncture Draw Fee 12:10:27 SUPERVISOR MARBLE CPT-18950 Fluzone Quadrivalent Intramuscular Suspe nsion 0.5 ML 10:49:13 CDT CPT-35129 First Vx Component - Ix admi n via ID IM or jet inj without physician counseling 15:17:19 SUPERVISOR MARBLE CPT-91495 Pneumovax 23 15:17:19 SUPERVISOR MARBLE CPT-70251 Pneumovax 14:52:45 SUPERVISOR MARBLE CPT-86566 Venipuncture Draw Fee 14:06:30 SUPERVISOR MARBLE CPT-000 Give Appropriate Flu Vaccine 14:18:34 SUPERVISOR MARBLE 2 CPT-44108 Administration single or combination vac cine inc oral 14:46:00 SUPERVISOR MARBLE CPT-31161 Influenza split virus > age 3 14:46:00 SUPERVISOR MARBLE CPT-OV Office Visit 19:13:16 CDT CPT-29777 Zostavax 18:41:56 CDT CPT-81352 Administration single or combination vac cine inc oral 12:56:39 CDT CPT-90790 Zoster Vaccine (Zostavax) 12:56:39 CDT 2012 CPT-92331 Venipuncture Draw Fee 10:58:57 CDT CPT-08485 Sono pelvis non OB uterus ovaries cervix 17:45:04 CDT CPT-43786 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
--- OUTSIDE RECORDS SUMMARY | 2019-10-27 13:27 | XMS REPORT | Clinical Summary ---
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 Benign neoplasm of colon PERIPHERAL NEUROPATHY [...] a day as needed 2 NAPROXEN SODIUM 27270243964 No Longer Active Baltazar Childers MD Active ATORVASTATIN CALCIUM 20 MG ORAL TABS Take 1 tab daily ATORVASTATIN CALCIUM 06219241371 Active Kelly Iraheta LPN Active FUROSEMIDE 40 MG TABS Take one by mouth daily FUROSEMIDE 45464479568 Active Baltazar Childers MD Active LISINOPRIL 20 MG TABS Take one by mouth daily at bedtime LISINOPRIL 47936887796 Active Baltazar Childers MD Active ONETOUCH ULTRA BLUE STRP Test twice a day GLUCO SE BLOOD 02748206248 No Longer Active Baltazar Childers MD Active TRUEPLUS LANCETS 33G MISC Test twice a day LANCET S 29286407278 Active Baltazar Childers MD Active TRUEDRAW LANCING DEVICE MISC Test twice a day L ANCET DEVICES 12472234849 Active Baltazar Childers MD Active TRUETRACK TEST STRP Test twice a day GLUCOSE BLOO D 42221481933 Active Baltazar Childers MD Active TRUETRACK BLOOD GLUCOSE W/DEVICE KIT Test twice a day BLOOD GLUCOSE MONITORING SUPPL 03397810387 Active Baltazar Childers MD Activ e HYDROCODONE-ACETAMINOPHEN 7.5-325 MG TABS Take 1 tab every 6-8 hour s PRN HYDROCODONE-ACETAMINOPHEN 03378812380 Active Baltazar Childers MD Active NORTRIPTYLINE HCL 50 MG CAPS 1 every night for neuropathy 4 NORTRIPTYLINE HCL 42247115202 Active Baltazar Childers MD Acti ve GABAPENTIN 300 MG CAPS 1 three times a day GABAPE NTIN 78407601409 Active BethCÉSAR HazelBetsey Active GABAPENTIN 300 MG CAPS 1 po qd x 2 days, then 1 po BID x 2 d ays, then 1 po TID GABAPENTIN 39421369638 No Longer Active Baltazar silverman MD Active TRAMADOL HCL 50 MG TABS 1 twice a day as needed for pain TRAMADOL HCL 35620298119 Active Baltazar Childers MD Active NAPROXEN 500 MG TABS 1 tablet by mouth twice daily NAPROXEN 09399334012 No Longer Active Baltazar Childers MD Active PROAIR HFA 108 (90 BASE) MCG/ACT AERS 2 puffs four times a d ay as needed ALBUTEROL SULFATE 94122435576 Active Baltazar Childers MD Active DEPO-TESTOSTERONE 200 MG/ML OIL as directed RUFINO TOSTERONE CYPIONATE 13038182073 No Longer Active Baltazar Childers MD Active LIPITOR 20 MG TABS Take one by mouth daily in evening ATORVASTATIN CALCIUM 95151194236 No Longer Active Baltazar Childers MD Activ e CRESTOR 10 MG TABS 1 by mouth every day R OSUVASTATIN CALCIUM 24018711997 No Longer Active Baltazar Childers MD Activ e PHENTERMINE HCL 37.5 MG TABS Take one by mouth daily 2 PHENTERMINE HCL 25619390061 No Longer Active Baltazar Childers MD Activ e ROBAXIN-750 750 MG TABS Take one by mouth daily ME THOCARBAMOL 11841638526 Active Baltazar Childers MD Active TIZANIDINE HCL 4 MG TABS 1 daily as needed for muscle spasm 2011 TIZANIDINE HCL 33028126610 No Longer Active Dawna Salazar RN Active [id number] 50-325-40 MG TABS 1 four time s a day as needed for heacache [id number] 48788642161 Active Baltazar Childers MD Active SUMATRIPTAN SUCCINATE 100 MG TABS 1 tablet by mouth at onset of migraine as needed SUMATRIPTAN SUCCINATE 31767994314 Active Melody Paez Active LORATADINE 10 MG TABS Take one by mouth daily LORATADINE 67393438816 Active Baltazar Childers MD Active OMEPRAZOLE 20 MG CPDR Take one by mouth daily OMEPRAZOLE 90558229313 Active Baltazar Childers MD Active HYDROXYZINE HCL 25 MG TABS Take one by mouth daily HYDROXYZINE HCL 71604355956 Active Baltazar Childers MD Active GLIPIZIDE 10 MG TABS 1 tablet by mouth twice daily GLIPIZIDE 06876202997 Active Baltazar Childers MD Active ALPRAZOLAM 1 MG TABS 1 tablet by mouth daily at bedtime for restles s leg ALPRAZOLAM 89534982349 Active Baltazar Childers MD Active METFORMIN HCL 1000 MG TABS Take one by mouth twice daily METFORMIN HCL 69694095643 Active Baltazar Childers MD Active TIZANIDINE HCL 4 MG TABS 1 daily as needed for muscle spasm 2011 TIZANIDINE HCL 4 MG TABS 087438 TIZANIDINE HCL Inactiv e PHENTERMINE HCL 37.5 MG TABS Take one by mouth daily 2 PHENTERMINE HCL 37.5 MG TABS 701521 PHENTERMINE HCL Inactive CRESTOR 10 MG TABS 1 by mouth every day C RESTOR 10 MG TABS ROSUVASTATIN CALCIUM Inactive LIPITOR 20 MG TABS Take one by mouth daily in evening LIPITOR 20 MG TABS 770023 ATORVASTATIN CALCIUM Inactive DEPO-TESTOSTERONE 200 MG/ML OIL as directed 8 DEPO-TESTOSTERONE 200 MG/ML OIL 895477 TESTOSTERONE CYPIONATE Inactive NAPROXEN 500 MG TABS 1 tablet by mouth twice daily 201 07/27/22 NAPROXEN 500 MG TABS 057630 NAPROXEN Inactive GABAPENTIN 300 MG CAPS 1 po qd x 2 days, then 1 po BID x 2 d ays, then 1 po TID GABAPENTIN 300 MG CAPS 371391 GABAPENTIN Inact amie ONETOUCH ULTRA BLUE STRP Test twice a day ONETOUCH ULTRA BLUE STRP GLUCOSE BLOOD Inactive NAPROXEN SODIUM 220 MG ORAL TABS 1 three times a day as needed 2 NAPROXEN SODIUM 220 MG ORAL TABS 000712 NAPROXEN SODIUM Inactive Immunizations Vaccine Administration Date Value Standard Floyd cription pneumococcal immunization administered Pneumovax 23 [CVX33] pneumococcal polysaccharide vaccine, 23 valent Seasonal influenza vaccine, injectable, containing preservative, for > 3 years old (Afluria, FluLaval, Fluzone, Fluvirin, Fluarix, Agriflu(>= 18 yo)) Fluzone (>3 yrs.) [[id number]] Influenza, seasonal, inject able Seasonal influenza vaccine, injectable, containing preservative, for > 3 years old (Afluria, FluLaval, Fluzone, Fluvirin, Fluarix, Agriflu(>= 18 yo)) Fluzone (>3 yrs.) [[id number]] Influenza, seasonal, inject able Vital Signs Date [...] 7.9 % 4.3-6.0 sodium, serum 139 mmol/L 322-955 3875/02/04 potassium, serum 5.4 mmol/L 3.5-5.2 chloride, serum [...] Panel - Chemistry sodium, serum 138 mmol/L 891-247 4789/11/23 carbon dioxide, venous blood 32.4 mmol/L 21.0-32 .0 potassium, serum 5.7 mmol/L 3.5-5.2 chloride, serum 98 mmol/L 98-107 blood glucose 136 mg/dL 65-110 urea nitrogen, blood 18 mg/dL 7-18 creatinine, serum 1.71 mg/dL 0.55-1.30 alanine aminotransferase (SGPT), serum 71 U/L 12-78 aspartate aminotransferase (SGOT), serum 34 U/L 15-37 calcium, serum 9.4 mg/dL 8.5-10.1 bilirubin, serum, total 0.40 mg/dL 0.00-1.00 cholesterol, serum 405 mg/dL 357-416 4741/11/23 triglyceride, serum, fasting 709 mg/dL 30-200 HDL [...] mg/dL Encounters Code Encounter Date Provider Facility CPT-14416 Level 4 Est. Patient 16:54:07 INDUSTRIAL ECONOMICS TEACHER Baltazar Childers MD [facility] CPT-81866 Level 4 Est. Patient 15:42:12 CDT Baltazar Childers MD [facility] CPT-29765 Level 4 Est. Patient 11:29:55 CDT Baltazar Childers MD [facility] CPT-35294 Level 4 Est. Patient 14:15:19 CDT Baltazar Childers MD [facility] CPT-41515 Level 4 Est. Patient 12:20:13 CDT Baltazar Childers MD [facility] CPT-73332 Level 4 Est. Patient 14:52:45 INDUSTRIAL ECONOMICS TEACHER Baltazar Childers MD [facility] CPT-80997 Level 4 Est. Patient 14:18:34 INDUSTRIAL ECONOMICS TEACHER Baltazar Childers MD [facility] CPT-99361 Level 4 Est. Patient 15:18:29 CDT Baltazar Childers MD [facility] CPT-26218 Level 3 Est. Patient 12:45:34 CDT Baltazar Childers MD [facility] CPT-04353 Level 3 Est. Patient 10:10:11 CDT Baltazar Childers MD [facility] CPT-63358 Level 3 Est. Patient 14:07:50 CDT Baltazar Childers MD [facility] CPT-97690 Level 4 Est. Patient 12:26:10 INDUSTRIAL ECONOMICS TEACHER Baltazar Childers MD [facility] CPT-37723 Level 4 Est. Patient 14:45:38 CDT Baltazar Childers MD [facility] CPT-44443 Level 4 New Patient 12:30:48 CDT Baltazar hinton MD [facility] Procedures Code Procedure Name Date Entry Date Standard Desc ription CPT-01610 Venipuncture Draw Fee 14:50:21 INDUSTRIAL ECONOMICS TEACHER CPT-37148 Immunization Single Admin 17:35:35 CDT 2014 CPT-70759 Fluzone Quadrivalent preservative free ( >=3yrs.) 17:35:35 CDT CPT-26682 Venipuncture Draw Fee 12:10:27 INDUSTRIAL ECONOMICS TEACHER CPT-38429 Fluzone Quadrivalent Intramuscular Suspe nsion 0.5 ML 10:49:13 CDT CPT-95626 First Vx Component - Ix admi n via ID IM or jet inj without physician counseling 15:17:19 INDUSTRIAL ECONOMICS TEACHER CPT-70536 Pneumovax 23 15:17:19 INDUSTRIAL ECONOMICS TEACHER CPT-81003 Pneumovax 14:52:45 INDUSTRIAL ECONOMICS TEACHER CPT-65100 Venipuncture Draw Fee 14:06:30 INDUSTRIAL ECONOMICS TEACHER CPT-000 Give Appropriate Flu Vaccine 14:18:34 INDUSTRIAL ECONOMICS TEACHER 2 CPT-42170 Administration single or combination vac cine inc oral 14:46:00 INDUSTRIAL ECONOMICS TEACHER CPT-33587 Influenza split virus > age 3 14:46:00 INDUSTRIAL ECONOMICS TEACHER CPT-OV Office Visit 19:13:16 CDT CPT-77774 Zostavax 18:41:56 CDT CPT-54993 Administration single or combination vac cine inc oral 12:56:39 CDT CPT-63788 Zoster Vaccine (Zostavax) 12:56:39 CDT 2012 CPT-12405 Venipuncture Draw Fee 10:58:57 CDT CPT-92370 Sono pelvis non OB uterus ovaries cervix 17:45:04 CDT CPT-80017 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
--- OUTSIDE RECORDS SUMMARY | 2019-10-27 13:27 | XMS REPORT | Clinical Summary ---
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 Benign neoplasm of colon PERIPHERAL NEUROPATHY [...] ronary atherosclerosis of unspecified type of vessel, [place] or graft OTH NONSPC ABN FINDNG RAD&OTH [...] Test twice a day GLUCO SE BLOOD 50888585769 No Longer Active Baltazar Childers MD Active TRUEPLUS LANCETS 33G MISC Test twice a day LANCET S 10111288116 Active Baltazar Childers MD Active TRUEDRAW LANCING DEVICE MISC Test twice a day L ANCET DEVICES 12353596821 Active Baltazar Childers MD Active TRUETRACK TEST STRP Test twice a day GLUCOSE BLOO D 14899801394 Active Baltazar Childers MD Active TRUETRACK BLOOD GLUCOSE W/DEVICE KIT Test twice a day BLOOD GLUCOSE MONITORING SUPPL 65868770645 Active Baltazar Childers MD Activ e HYDROCODONE-ACETAMINOPHEN 7.5-325 MG TABS Take 1 tab every 6-8 hour s PRN HYDROCODONE-ACETAMINOPHEN 89523534585 Active Gato Rae MD Active NORTRIPTYLINE HCL 50 MG CAPS 1 every night for neuropathy 4 NORTRIPTYLINE HCL 84522983162 Active Baltazar Childers MD Acti ve GABAPENTIN 300 MG CAPS 1 three times a day GABAPE NTIN 92133895535 Active Baltazar Childers MD Active GABAPENTIN 300 MG CAPS 1 po qd x 2 days, then 1 po BID x 2 d ays, then 1 po TID GABAPENTIN 08971883932 No Longer Active Baltazar silverman MD Active TRAMADOL HCL 50 MG TABS 1 twice a day as needed for pain TRAMADOL HCL 70171143225 Active Baltazar Childers MD Active NAPROXEN 500 MG TABS 1 tablet by mouth twice daily NAPROXEN 81319250941 No Longer Active Baltazar Childers MD Active PROAIR HFA 108 (90 BASE) MCG/ACT AERS 2 puffs four times a d ay as needed ALBUTEROL SULFATE 87604400482 Active Baltazar Childers MD Active DEPO-TESTOSTERONE 200 MG/ML OIL as directed RUFINO TOSTERONE CYPIONATE 53667333228 No Longer Active Baltazar Childers MD Active LIPITOR 20 MG TABS Take one by mouth daily in evening ATORVASTATIN CALCIUM 09279843042 No Longer Active Baltazar Childers MD Activ e CRESTOR 10 MG TABS 1 by mouth every day R OSUVASTATIN CALCIUM 38134586570 No Longer Active Baltazar Childers MD Activ e PHENTERMINE HCL 37.5 MG TABS Take one by mouth daily 2 PHENTERMINE HCL 65510250758 No Longer Active Baltazar Childers MD Activ e ROBAXIN-750 750 MG TABS Take one by mouth daily ME THOCARBAMOL 43286029172 Active Baltazar Childers MD Active TIZANIDINE HCL 4 MG TABS 1 daily as needed for muscle spasm 2011 TIZANIDINE HCL 83516595735 No Longer Active Dawna Salazar RN Active [id number] 50-325-40 MG TABS 1 four time s a day as needed for heacache [id number] 65436967384 Active Baltazar Childers MD Active SUMATRIPTAN SUCCINATE 100 MG TABS 1 tablet by mouth at onset of migraine as needed SUMATRIPTAN SUCCINATE 66704983958 Active Baltazar bynum MD Active LORATADINE 10 MG TABS Take one by mouth daily LORATADINE 09847178436 Active Baltazar Childers MD Active FUROSEMIDE 40 MG TABS Take one by mouth daily FUROSEMIDE 04980844916 Active Baltazar Childers MD Active LISINOPRIL 20 MG TABS Take one by mouth daily at bedtime LISINOPRIL 44454440616 Active Baltazar Childers MD Active OMEPRAZOLE 20 MG CPDR Take one by mouth daily OMEPRAZOLE 99866328443 Active Baltazar Childers MD Active HYDROXYZINE HCL 25 MG TABS Take one by mouth daily HYDROXYZINE HCL 39161480611 Active Baltazar Childers MD Active GLIPIZIDE 10 MG TABS 1 tablet by mouth twice daily GLIPIZIDE 93406328977 Active Baltazar Childers MD Active ALPRAZOLAM 1 MG TABS 1 tablet by mouth daily at bedtime for restles s leg ALPRAZOLAM 62981189072 Active Baltazar Childers MD Active METFORMIN HCL 1000 MG TABS Take one by mouth twice daily METFORMIN HCL 96980568453 Active Baltazar Childers MD Active TIZANIDINE HCL 4 MG TABS 1 daily as needed for muscle spasm 2011 TIZANIDINE HCL 4 MG TABS 747939 TIZANIDINE HCL Inactiv e PHENTERMINE HCL 37.5 MG TABS Take one by mouth daily 2 PHENTERMINE HCL 37.5 MG TABS 680193 PHENTERMINE HCL Inactive CRESTOR 10 MG TABS 1 by mouth every day C RESTOR 10 MG TABS ROSUVASTATIN CALCIUM Inactive LIPITOR 20 MG TABS Take one by mouth daily in evening LIPITOR 20 MG TABS 406996 ATORVASTATIN CALCIUM Inactive DEPO-TESTOSTERONE 200 MG/ML OIL as directed 8 DEPO-TESTOSTERONE 200 MG/ML OIL 687282 TESTOSTERONE CYPIONATE Inactive NAPROXEN 500 MG TABS 1 tablet by mouth twice daily 201 07/27/22 NAPROXEN 500 MG TABS 142351 NAPROXEN Inactive GABAPENTIN 300 MG CAPS 1 po qd x 2 days, then 1 po BID x 2 d ays, then 1 po TID GABAPENTIN 300 MG CAPS 162084 GABAPENTIN Inact amie ONETOUCH ULTRA BLUE STRP Test twice a day ONETOUCH ULTRA BLUE STRP GLUCOSE BLOOD Inactive Immunizations Vaccine Administration Date Value Standard Floyd cription pneumococcal immunization administered Pneumovax 23 [CVX33] pneumococcal polysaccharide vaccine, 23 valent Seasonal influenza vaccine, injectable, containing preservative, for > 3 years old (Afluria, FluLaval, Fluzone, Fluvirin, Fluarix, Agriflu(>= 18 yo)) Fluzone (>3 yrs.) [[id number]] Influenza, seasonal, inject able Seasonal influenza vaccine, injectable, containing preservative, for > 3 years old (Afluria, FluLaval, Fluzone, Fluvirin, Fluarix, Agriflu(>= 18 yo)) Fluzone (>3 yrs.) [[id number]] Influenza, seasonal, inject able Vital Signs Date [...] - Chem istry sodium, serum 140 mmol/L 214-247 6237/05/05 potassium, serum 4.9 mmol/L 3.5-5.2 chloride, serum [...] Panel - Chemistry sodium, serum 139 mmol/L 491-762 9528/01/20 potassium, serum 5.3 mmol/L 3.5-5.2 chloride, serum [...] mg/g mg/g{creat} 0-29 cholesterol, serum 319 mg/dL 321-501 2558/08/21 triglyceride, serum, fasting 546 mg/dL 30-200 HDL cholesterol, serum 39 mg/dL 32-96 LDL cholesterol, serum 167.00 mg/dL 5.00-130.00 hemoglobin A1C, blood, as % of total hemoglobin 7.7 % 4.3-6.0 sodium, serum 138 mmol/L 269-423 1717/08/21 potassium, serum 4.3 mmol/L 3.5-5.2 chloride, serum [...] 0-19 Encounters Code Encounter Date Provider Facility CPT-58824 Level 4 Est. Patient 11:29:55 CDT Baltazar Childers MD [facility] CPT-40753 Level 4 Est. Patient 14:15:19 CDT Baltazar Childers MD [facility] CPT-38809 Level 4 Est. Patient 12:20:13 CDT Baltazar Childers MD [facility] CPT-27862 Level 4 Est. 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 Patient 14:18:34 [employer] RO[employer] COVERER Baltazar Childers MD [facility] CPT-95906 Level 4 Est. Patient 15:18:29 CDT Baltazar Childers MD [facility] CPT-68981 Level 3 Est. Patient 12:45:34 CDT Baltazar Childers MD [facility] CPT-91908 Level 3 Est. Patient 10:10:11 CDT Baltazar Childers MD [facility] CPT-19861 Level 3 Est. Patient 14:07:50 CDT Baltazar Childers MD [facility] CPT-23525 Level 4 Est. Patient 12:26:10 [employer] RO[employer] COVERER Baltazar Childers MD [facility] CPT-27533 Level 4 Est. Patient 14:45:38 CDT Baltazar Childers MD [facility] CPT-40982 Level 4 New Patient 12:30:48 CDT Baltazar hinton MD [facility] Procedures Code Procedure Name Date Entry Date Standard Desc ription CPT-54351 Venipuncture Draw Fee 12:10:27 [employer] COVERER CPT-12190 Fluzone Quadrivalent Intramuscular Suspe nsion 0.5 ML 10:49:13 CDT CPT-70841 First Vx Component - Ix admi n via ID IM or jet inj without physician counseling 15:17:19 [employer] RO[employer] COVERER CPT-17947 Pneumovax 15:17:19 [employer]AP ROLL COVERER CPT-09184 Pneumovax 14:52:45 [employer]AP RO[employer] COVERER CPT-09030 Venipuncture Draw Fee 14:06:30 [employer] COVERER CPT-000 Give Appropriate Flu Vaccine 14:18:34 [employer]AP ROLL COVERER 2 CPT-22207 Administration single or combination vac cine inc oral 14:46:00 [employer]AP ROLL COVERER CPT-54848 Influenza split virus > age 3 14:46:00 B[employer]AP ROLL COVERER CPT-OV Office Visit 19:13:16 CDT CPT-67134 Zostavax 18:41:56 CDT CPT-54477 Administration single or combination vac cine inc oral 12:56:39 CDT CPT-60598 Zoster Vaccine (Zostavax) 12:56:39 CDT 2012 CPT-59184 Venipuncture Draw Fee 10:58:57 CDT CPT-08142 Sono pelvis non OB uterus ovaries cervix 17:45:04 CDT CPT-08849 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
--- OUTSIDE RECORDS SUMMARY | 2019-10-27 13:27 | XMS REPORT | Clinical Summary ---
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 Benign neoplasm of colon PERIPHERAL NEUROPATHY 356.9 [...] disease stage III 585.3 Active 201 10/25/03 Elabmargarette Ryan KENDALL Chronic kidney disease, Stage III (moder ate) COLON POLYPS ICD-211.3 Inactive Lolis Thomas APR N Medication List Medication Instructions Start Date Stop Date Generic Name NDC Status Provider Patient Instruction NAPROXEN SODIUM 220 MG ORAL TABS 1 three times a day as needed 2 NAPROXEN SODIUM 82662169454 No Longer Active Baltazar Childers MD Active ATORVASTATIN CALCIUM 20 MG ORAL TABS Take 1 tab daily ATORVASTATIN CALCIUM 21107972269 Active KENDALL Juarez Active FUROSEMIDE 40 MG TABS Take one by mouth daily FUROSEMIDE 60459369958 Active Baltazar Childers MD Active LISINOPRIL 20 MG TABS Take one by mouth daily at bedtime LISINOPRIL 74825548886 Active KENDALL Juarez Active ONETOUCH ULTRA BLUE STRP Test twice a day GLUCO SE BLOOD 54079309687 No Longer Active Baltazar Childers MD Active TRUEPLUS LANCETS 33G MISC Test twice a day LANCET S 10728252350 Active KENDALL Juarez Active TRUEDRAW LANCING DEVICE MISC Test twice a day L ANCET DEVICES 29176836293 Active Baltazar Childers MD Active TRUETRACK TEST STRP Test twice a day GLUCOSE BLOO D 67480135492 Active KENDALL Juarez Active TRUETRACK BLOOD GLUCOSE W/DEVICE KIT Test twice a day BLOOD GLUCOSE MONITORING SUPPL 25283192198 Active Baltazar Childers MD Activ e HYDROCODONE-ACETAMINOPHEN 7.5-325 MG TABS Take 1 tab every 6-8 hour s PRN HYDROCODONE-ACETAMINOPHEN 58755797526 Active Baltazar Childers MD Active NORTRIPTYLINE HCL 50 MG CAPS 1 every night for neuropathy 4 NORTRIPTYLINE HCL 56801275007 Active Baltazar Childers MD Acti ve GABAPENTIN 300 MG CAPS 1 three times a day GABAPE NTIN 49459274612 Active KENDALL Juarez Active GABAPENTIN 300 MG CAPS 1 po qd x 2 days, then 1 po BID x 2 d ays, then 1 po TID GABAPENTIN 93512998905 No Longer Active Baltazar silverman MD Active TRAMADOL HCL 50 MG TABS 1 twice a day as needed for pain TRAMADOL HCL 22953718293 Active Baltazar Childers MD Active NAPROXEN 500 MG TABS 1 tablet by mouth twice daily NAPROXEN 70072860206 No Longer Active Baltazar Childers MD Active PROAIR HFA 108 (90 BASE) MCG/ACT AERS 2 puffs four times a d ay as needed ALBUTEROL SULFATE 31009008328 Active KENDALL Juarez Active DEPO-TESTOSTERONE 200 MG/ML OIL as directed RUFINO TOSTERONE CYPIONATE 75721704374 No Longer Active Baltazar Childers MD Active LIPITOR 20 MG TABS Take one by mouth daily in evening ATORVASTATIN CALCIUM 68774090339 No Longer Active Baltazar Childers MD Activ e CRESTOR 10 MG TABS 1 by mouth every day R OSUVASTATIN CALCIUM 66073225098 No Longer Active Baltazar Childers MD Activ e PHENTERMINE HCL 37.5 MG TABS Take one by mouth daily 2 PHENTERMINE HCL 63079353907 No Longer Active Baltazar Childers MD Activ e ROBAXIN-750 750 MG TABS Take one by mouth daily ME THOCARBAMOL 47922350456 Active Baltazar Childers MD Active TIZANIDINE HCL 4 MG TABS 1 daily as needed for muscle spasm 2011 TIZANIDINE HCL 77392604016 No Longer Active Dawna Salazar RN Active [id number]-[id number]-CFGOVUKI 50-325-40 MG TABS 1 four time s a day as needed for heacache [id number] 08010930242 Active KENDALL Juarez Active SUMATRIPTAN SUCCINATE 100 MG TABS 1 tablet by mouth at onset of migraine as needed SUMATRIPTAN SUCCINATE 22005947306 Active KENDALL Juarez Active LORATADINE 10 MG TABS Take one by mouth daily LORATADINE 20207964242 Active Baltazar Childers MD Active OMEPRAZOLE 20 MG CPDR Take one by mouth daily OMEPRAZOLE 47173730076 Active Baltazar Childers MD Active HYDROXYZINE HCL 25 MG TABS Take one by mouth daily HYDROXYZINE HCL 44684433739 Active Baltazar Childers MD Active GLIPIZIDE 10 MG TABS 1 tablet by mouth twice daily GLIPIZIDE 63603648347 Active KENDALL Juarez Active ALPRAZOLAM 1 MG TABS 1 tablet by mouth daily at bedtime for restles s leg ALPRAZOLAM 57350992803 Active Baltazar Childers MD Active METFORMIN HCL 1000 MG TABS Take one by mouth twice daily METFORMIN HCL 78032096443 Active Baltazar Childers MD Active TIZANIDINE HCL 4 MG TABS 1 daily as needed for muscle spasm 2011 TIZANIDINE HCL 4 MG TABS 938733 TIZANIDINE HCL Inactiv e PHENTERMINE HCL 37.5 MG TABS Take one by mouth daily 2 PHENTERMINE HCL 37.5 MG TABS 167046 PHENTERMINE HCL Inactive CRESTOR 10 MG TABS 1 by mouth every day C RESTOR 10 MG TABS ROSUVASTATIN CALCIUM Inactive LIPITOR 20 MG TABS Take one by mouth daily in evening LIPITOR 20 MG TABS 409233 ATORVASTATIN CALCIUM Inactive DEPO-TESTOSTERONE 200 MG/ML OIL as directed 8 DEPO-TESTOSTERONE 200 MG/ML OIL 278894 TESTOSTERONE CYPIONATE Inactive NAPROXEN 500 MG TABS 1 tablet by mouth twice daily 201 07/27/22 NAPROXEN 500 MG TABS 973921 NAPROXEN Inactive GABAPENTIN 300 MG CAPS 1 po qd x 2 days, then 1 po BID x 2 d ays, then 1 po TID GABAPENTIN 300 MG CAPS 431420 GABAPENTIN Inact amie ONETOUCH ULTRA BLUE STRP Test twice a day ONETOUCH ULTRA BLUE STRP GLUCOSE BLOOD Inactive NAPROXEN SODIUM 220 MG ORAL TABS 1 three times a day as needed 2 NAPROXEN SODIUM 220 MG ORAL TABS 430187 NAPROXEN SODIUM Inactive Immunizations Vaccine Administration Date Value Standard Floyd cription pneumococcal immunization administered Pneumovax 23 [CVX33] pneumococcal polysaccharide vaccine, 23 valent Seasonal influenza vaccine, injectable, containing preservative, for > 3 years old (Afluria, FluLaval, Fluzone, Fluvirin, Fluarix, Agriflu(>= 18 yo)) Fluzone (>3 yrs.) [RUS944] Influenza, seasonal, inject able Seasonal influenza vaccine, injectable, containing preservative, for > 3 years old (Afluria, FluLaval, Fluzone, Fluvirin, Fluarix, Agriflu(>= 18 yo)) Fluzone (>3 yrs.) [VIU108] Influenza, seasonal, inject able Vital Signs Date Name Value Unit Range Description blood pressure, diastolic - 8462-4 74 mm[Hg] BP aslmeron blood pressure, systolic - 8480-6 114 mm[Hg] [...] 7.9 % 4.3-6.0 sodium, serum 139 mmol/L 688-447 4120/02/04 potassium, serum 5.4 mmol/L 3.5-5.2 chloride, serum [...] Panel - Chemistry sodium, serum 138 mmol/L 871-817 8863/11/23 carbon dioxide, venous blood 32.4 mmol/L 21.0-32 .0 potassium, serum 5.7 mmol/L 3.5-5.2 chloride, serum 98 mmol/L 98-107 blood glucose 136 mg/dL 65-110 urea nitrogen, blood 18 mg/dL 7-18 creatinine, serum 1.71 mg/dL 0.55-1.30 alanine aminotransferase (SGPT), serum 71 U/L 12-78 aspartate aminotransferase (SGOT), serum 34 U/L 15-37 calcium, serum 9.4 mg/dL 8.5-10.1 bilirubin, serum, total 0.40 mg/dL 0.00-1.00 cholesterol, serum 405 mg/dL 259-887 7770/11/23 triglyceride, serum, fasting 709 mg/dL 30-200 HDL [...] mg/dL Encounters Code Encounter Date Provider Facility CPT-85081 Level 4 Est. Patient 16:01:48 CDT Baltazar Childers MD [facility] CPT-53665 Level 4 Est. 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 Patient 15:42:12 CDT Baltazar Childers MD [facility] CPT-32276 Level 4 Est. Patient 11:29:55 CDT Baltazar Childers MD [facility] CPT-24313 Level 4 Est. Patient 14:15:19 CDT Baltazar Childers MD [facility] CPT-72616 Level 4 Est. Patient 12:20:13 CDT Baltazar Childers MD [facility] CPT-61124 Level 4 Est. 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 Patient 15:18:29 CDT Baltazar Childers MD [facility] CPT-79007 Level 3 Est. Patient 12:45:34 CDT Baltazar Childers MD [facility] CPT-52602 Level 3 Est. Patient 10:10:11 CDT Baltazar Childers MD [facility] CPT-52480 Level 3 Est. Patient 14:07:50 CDT Baltazar Childers MD [facility] CPT-98965 Level 4 Est. 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 Patient 14:45:38 CDT Baltazar Childers MD [facility] CPT-74282 Level 4 New Patient 12:30:48 CDT Baltazar hinton MD [facility] Procedures Code Procedure Name Date Entry Date Standard Desc ription CPT-50740 Venipuncture Draw Fee 14:50:21 [employer]ER T[employer]ETTER [employer]LINER CPT-57035 Immunization Single Admin 17:35:35 CDT 2014 CPT-82099 Fluzone Quadrivalent preservative free ( >=3yrs.) 17:35:35 CDT CPT-31366 Venipuncture Draw Fee 12:10:27 [employer]PUTER TYP[employer]ETTER KEYLINER CPT-29352 Fluzone Quadrivalent Intramuscular Suspe nsion 0.5 ML 10:49:13 CDT CPT-06725 First Vx Component - Ix admi n via ID IM or jet inj without physician counseling 15:17:19 COMPUTER TYPESETTER KEYLINER CPT-79440 Pneumovax 15:17:19 COMPUTER TYPESETTER [employer]LINER CPT-15410 Pneumovax 14:52:45 [employer]PUTER TYP[employer]ETTER [employer]LINER CPT-14558 Venipuncture Draw Fee 14:06:30 [employer]PUTER [employer]ETTER [employer]ER CPT-000 Give Appropriate Flu Vaccine 14:18:34 COMPUTER TYPESETTER KEYLINER 2 CPT-41493 Administration single or combination vac cine inc oral 14:46:00 COMPUTER TYPESETTER KEYLINER CPT-16344 Influenza split virus > age 3 14:46:00 COMPUTER TYPESETTER KEYLINER CPT-OV Office Visit 19:13:16 CDT CPT-11472 Zostavax 18:41:56 CDT CPT-43440 Administration single or combination vac cine inc oral 12:56:39 CDT CPT-34801 Zoster Vaccine (Zostavax) 12:56:39 CDT 2012 CPT-17158 Venipuncture Draw Fee 10:58:57 CDT CPT-68046 Sono pelvis non OB uterus ovaries cervix 17:45:04 CDT CPT-24182 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
--- OUTSIDE RECORDS SUMMARY | 2019-10-27 13:28 | XMS REPORT | Clinical Summary ---
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 Benign neoplasm of colon PERIPHERAL NEUROPATHY [...] ronary atherosclerosis of unspecified type of vessel, [place] or graft OTH NONSPC ABN FINDNG RAD&OTH [...] a day as needed 2 NAPROXEN SODIUM 20415898761 No Longer Active Baltazar Childers MD Active ATORVASTATIN CALCIUM 20 MG ORAL TABS Take 1 tab daily ATORVASTATIN CALCIUM 51440431329 Active KENDALL Juarez Active FUROSEMIDE 40 MG TABS Take one by mouth daily FUROSEMIDE 44684419009 Active Baltazar Childers MD Active LISINOPRIL 20 MG TABS Take one by mouth daily at bedtime LISINOPRIL 06625085223 Active KENDALL Juarez Active ONETOUCH ULTRA BLUE STRP Test twice a day GLUCO SE BLOOD 03336142789 No Longer Active Baltazar Childers MD Active TRUEPLUS LANCETS 33G MISC Test twice a day LANCET S 73967496114 Active KENDALL Juarez Active TRUEDRAW LANCING DEVICE MISC Test twice a day L ANCET DEVICES 63400393034 Active Baltazar Childers MD Active TRUETRACK TEST STRP Test twice a day GLUCOSE BLOO D 00648157349 Active KENDALL Juarez Active TRUETRACK BLOOD GLUCOSE W/DEVICE KIT Test twice a day BLOOD GLUCOSE MONITORING SUPPL 62056339734 Active Baltazar Childers MD Activ e HYDROCODONE-ACETAMINOPHEN 7.5-325 MG TABS Take 1 tab every 6-8 hour s PRN HYDROCODONE-ACETAMINOPHEN 85501407306 Active Baltazar Childers MD Active NORTRIPTYLINE HCL 50 MG CAPS 1 every night for neuropathy 4 NORTRIPTYLINE HCL 81958965473 Active Baltazar Childers MD Acti ve GABAPENTIN 300 MG CAPS 1 three times a day GABAPE NTIN 45245278503 Active KENDALL Juarez Active GABAPENTIN 300 MG CAPS 1 po qd x 2 days, then 1 po BID x 2 d ays, then 1 po TID GABAPENTIN 33940233884 No Longer Active Baltazar silverman MD Active TRAMADOL HCL 50 MG TABS 1 twice a day as needed for pain TRAMADOL HCL 62987418087 Active Baltazar Childers MD Active NAPROXEN 500 MG TABS 1 tablet by mouth twice daily NAPROXEN 56786310265 No Longer Active Baltazar Childers MD Active PROAIR HFA 108 (90 BASE) MCG/ACT AERS 2 puffs four times a d ay as needed ALBUTEROL SULFATE 89765484345 Active KENDALL Juarez Active DEPO-TESTOSTERONE 200 MG/ML OIL as directed RUFINO TOSTERONE CYPIONATE 59568926412 No Longer Active Baltazar Childers MD Active LIPITOR 20 MG TABS Take one by mouth daily in evening ATORVASTATIN CALCIUM 00520192354 No Longer Active Baltazar Childers MD Activ e CRESTOR 10 MG TABS 1 by mouth every day R OSUVASTATIN CALCIUM 19434338792 No Longer Active Baltazar Childers MD Activ e PHENTERMINE HCL 37.5 MG TABS Take one by mouth daily 2 PHENTERMINE HCL 00638851250 No Longer Active Baltazar Childers MD Activ e ROBAXIN-750 750 MG TABS Take one by mouth daily ME THOCARBAMOL 04055507461 Active Baltazar Childers MD Active TIZANIDINE HCL 4 MG TABS 1 daily as needed for muscle spasm 2011 TIZANIDINE HCL 64479008140 No Longer Active Dawna Salazar RN Active [id number]-[id number]-ZBYBKRHC 50-325-40 MG TABS 1 four time s a day as needed for heacache [id number] 64981015418 Active KENDALL Juarez Active SUMATRIPTAN SUCCINATE 100 MG TABS 1 tablet by mouth at onset of migraine as needed SUMATRIPTAN SUCCINATE 52932796141 Active KENDALL Juarez Active LORATADINE 10 MG TABS Take one by mouth daily LORATADINE 00977813542 Active Baltazar Childers MD Active OMEPRAZOLE 20 MG CPDR Take one by mouth daily OMEPRAZOLE 54646923555 Active Baltazar Childers MD Active HYDROXYZINE HCL 25 MG TABS Take one by mouth daily HYDROXYZINE HCL 12611493299 Active Baltazar Childers MD Active GLIPIZIDE 10 MG TABS 1 tablet by mouth twice daily GLIPIZIDE 02267799529 Active KENDALL Juarez Active ALPRAZOLAM 1 MG TABS 1 tablet by mouth daily at bedtime for restles s leg ALPRAZOLAM 12935030194 Active Baltazar Childers MD Active METFORMIN HCL 1000 MG TABS Take one by mouth twice daily METFORMIN HCL 89890896237 Active Baltazar Childers MD Active TIZANIDINE HCL 4 MG TABS 1 daily as needed for muscle spasm 2011 TIZANIDINE HCL 4 MG TABS 900050 TIZANIDINE HCL Inactiv e PHENTERMINE HCL 37.5 MG TABS Take one by mouth daily 2 PHENTERMINE HCL 37.5 MG TABS 640187 PHENTERMINE HCL Inactive CRESTOR 10 MG TABS 1 by mouth every day C RESTOR 10 MG TABS ROSUVASTATIN CALCIUM Inactive LIPITOR 20 MG TABS Take one by mouth daily in evening LIPITOR 20 MG TABS 026569 ATORVASTATIN CALCIUM Inactive DEPO-TESTOSTERONE 200 MG/ML OIL as directed 8 DEPO-TESTOSTERONE 200 MG/ML OIL 613014 TESTOSTERONE CYPIONATE Inactive NAPROXEN 500 MG TABS 1 tablet by mouth twice daily 201 07/27/22 NAPROXEN 500 MG TABS 905443 NAPROXEN Inactive GABAPENTIN 300 MG CAPS 1 po qd x 2 days, then 1 po BID x 2 d ays, then 1 po TID GABAPENTIN 300 MG CAPS 630036 GABAPENTIN Inact amie ONETOUCH ULTRA BLUE STRP Test twice a day ONETOUCH ULTRA BLUE STRP GLUCOSE BLOOD Inactive NAPROXEN SODIUM 220 MG ORAL TABS 1 three times a day as needed 2 NAPROXEN SODIUM 220 MG ORAL TABS 113823 NAPROXEN SODIUM Inactive Immunizations Vaccine Administration Date Value Standard Floyd cription pneumococcal immunization administered Pneumovax 23 [CVX33] pneumococcal polysaccharide vaccine, 23 valent Seasonal influenza vaccine, injectable, containing preservative, for > 3 years old (Afluria, FluLaval, Fluzone, Fluvirin, Fluarix, Agriflu(>= 18 yo)) Fluzone (>3 yrs.) [AUW499] Influenza, seasonal, inject able Seasonal influenza vaccine, injectable, containing preservative, for > 3 years old (Afluria, FluLaval, Fluzone, Fluvirin, Fluarix, Agriflu(>= 18 yo)) Fluzone (>3 yrs.) [[id number]] Influenza, seasonal, inject able Vital Signs Date [...] 7.9 % 4.3-6.0 sodium, serum 139 mmol/L 548-993 9588/02/04 potassium, serum 5.4 mmol/L 3.5-5.2 chloride, serum [...] Panel - Chemistry sodium, serum 138 mmol/L 686-100 2119/11/23 carbon dioxide, venous blood 32.4 mmol/L 21.0-32 .0 potassium, serum 5.7 mmol/L 3.5-5.2 chloride, serum 98 mmol/L 98-107 blood glucose 136 mg/dL 65-110 urea nitrogen, blood 18 mg/dL 7-18 creatinine, serum 1.71 mg/dL 0.55-1.30 alanine aminotransferase (SGPT), serum 71 U/L 12-78 aspartate aminotransferase (SGOT), serum 34 U/L 15-37 calcium, serum 9.4 mg/dL 8.5-10.1 bilirubin, serum, total 0.40 mg/dL 0.00-1.00 cholesterol, serum 405 mg/dL 170-116 3285/11/23 triglyceride, serum, fasting 709 mg/dL 30-200 HDL [...] mg/dL Encounters Code Encounter Date Provider Facility CPT-71450 Level 4 Est. Patient 16:01:48 CDT Baltazar Childers MD [facility] CPT-80774 Level 4 Est. Patient 16:54:07 SPECIAL POPULATION PARAPROFESSIONAL Baltazar Childers MD [facility] CPT-96158 Level 4 Est. Patient 15:42:12 CDT Baltazar Childers MD [facility] CPT-71253 Level 4 Est. Patient 11:29:55 CDT Baltazar Childers MD [facility] CPT-54521 Level 4 Est. Patient 14:15:19 CDT Baltazar Childers MD [facility] CPT-89743 Level 4 Est. Patient 12:20:13 CDT Baltazar Childers MD [facility] CPT-43458 Level 4 Est. Patient 14:52:45 SPECIAL POPULATION PARAPROFESSIONAL Baltazar Childers MD [facility] CPT-86437 Level 4 Est. Patient 14:18:34 SPECIAL POPULATION PARAPROFESSIONAL Baltazar Childers MD [facility] CPT-03177 Level 4 Est. Patient 15:18:29 CDT Baltazar Childers MD [facility] CPT-24566 Level 3 Est. Patient 12:45:34 CDT Baltazar Childers MD [facility] CPT-29208 Level 3 Est. Patient 10:10:11 CDT Baltazar Childers MD [facility] CPT-42300 Level 3 Est. Patient 14:07:50 CDT Baltazar Childers MD [facility] CPT-82075 Level 4 Est. Patient 12:26:10 SPECIAL POPULATION PARAPROFESSIONAL Baltazar Childers MD [facility] CPT-21266 Level 4 Est. Patient 14:45:38 CDT Baltazar Childers MD [facility] CPT-56750 Level 4 New Patient 12:30:48 CDT Baltazar hinton MD [facility] Procedures Code Procedure Name Date Entry Date Standard Desc ription CPT-87974 Venipuncture Draw Fee 14:50:21 SPECIAL POPULATION PARAPROFESSIONAL CPT-04092 Immunization Single Admin 17:35:35 CDT 2014 CPT-15994 Fluzone Quadrivalent preservative free ( >=3yrs.) 17:35:35 CDT CPT-13245 Venipuncture Draw Fee 12:10:27 SPECIAL POPULATION PARAPROFESSIONAL CPT-71040 Fluzone Quadrivalent Intramuscular Suspe nsion 0.5 ML 10:49:13 CDT CPT-62819 First Vx Component - Ix admi n via ID IM or jet inj without physician counseling 15:17:19 SPECIAL POPULATION PARAPROFESSIONAL CPT-33116 Pneumovax 15:17:19 SPECIAL POPULATION PARAPROFESSIONAL CPT-89573 Pneumovax 14:52:45 SPECIAL POPULATION PARAPROFESSIONAL CPT-23807 Venipuncture Draw Fee 14:06:30 SPECIAL POPULATION PARAPROFESSIONAL CPT-000 Give Appropriate Flu Vaccine 14:18:34 SPECIAL POPULATION PARAPROFESSIONAL 2 CPT-52786 Administration single or combination vac cine inc oral 14:46:00 SPECIAL POPULATION PARAPROFESSIONAL CPT-04072 Influenza split virus > age 3 14:46:00 SPECIAL POPULATION PARAPROFESSIONAL CPT-OV Office Visit 19:13:16 CDT CPT-11906 Zostavax 18:41:56 CDT CPT-65241 Administration single or combination vac cine inc oral 12:56:39 CDT CPT-36215 Zoster Vaccine (Zostavax) 12:56:39 CDT 2012 CPT-51708 Venipuncture Draw Fee 10:58:57 CDT CPT-72866 Sono pelvis non OB uterus ovaries cervix 17:45:04 CDT CPT-95085 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
--- OUTSIDE RECORDS SUMMARY | 2019-10-27 13:28 | XMS REPORT | Clinical Summary ---
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 Benign neoplasm of colon PERIPHERAL NEUROPATHY [...] ronary atherosclerosis of unspecified type of vessel, [place] or graft OTH NONSPC ABN FINDNG RAD&OTH [...] day to coat the stomach 2015 SUCRALFATE 54184905580 No Longer Active Baltazar Childers MD Active PEN NEEDLES 31G X 6 MM MISC use 1 daily INSULIN PEN NEEDLE 69095689300 Active Bella Suarez RESIDENCE LIFE COORDINATOR Active TOUJEO SOLOSTAR 300 UNIT/ML SC SOPN 10 units SC daily INSULIN GLARGINE 76355391858 No Longer Active Martita Godinez RMA Active LANTUS SOLOSTAR 100 UNIT/ML SC SOPN 10 units SC daily INSULIN GLARGINE 51901144070 Active Baltazar Childers MD Active NAPROXEN SODIUM 220 MG ORAL TABS 1 three times a day as needed 2 NAPROXEN SODIUM 90670686398 No Longer Active Baltazar Childers MD Active ATORVASTATIN CALCIUM 20 MG ORAL TABS Take 1 tab daily ATORVASTATIN CALCIUM 10376874665 Active Baltazar Childers MD Active FUROSEMIDE 40 MG TABS Take one by mouth daily FUROSEMIDE 98394975679 Active Baltazar Childers MD Active LISINOPRIL 20 MG TABS Take one by mouth daily at bedtime LISINOPRIL 32093371917 Active KENDALL Juarez Active ONETOUCH ULTRA BLUE STRP Test twice a day GLUCO SE BLOOD 45323850260 No Longer Active Baltazar Childers MD Active TRUEPLUS LANCETS 33G MISC Test twice a day LANCET S 88606608424 Active KENDALL Juarez Active TRUEDRAW LANCING DEVICE MISC Test twice a day L ANCET DEVICES 42291660084 Active Baltazar Childers MD Active TRUETRACK TEST STRP Test twice a day GLUCOSE BLOO D 42795526023 Active KENDALL Juarez Active TRUETRACK BLOOD GLUCOSE W/DEVICE KIT Test twice a day BLOOD GLUCOSE MONITORING SUPPL 84678015752 Active Baltazar Childers MD Activ e HYDROCODONE-ACETAMINOPHEN 7.5-325 MG TABS Take 1 tab every 6-8 hour s PRN HYDROCODONE-ACETAMINOPHEN 16852478300 Active Shonna Parker APRN Active NORTRIPTYLINE HCL 50 MG CAPS 1 every night for neuropathy 4 NORTRIPTYLINE HCL 85317692500 Active Baltazar Childers MD Acti ve GABAPENTIN 300 MG CAPS 1 three times a day GABAPE NTIN 87623013345 Active Baltazar Childers MD Active GABAPENTIN 300 MG CAPS 1 po qd x 2 days, then 1 po BID x 2 d ays, then 1 po TID GABAPENTIN 89342351000 No Longer Active Baltazar silverman MD Active TRAMADOL HCL 50 MG TABS 1 twice a day as needed for pain TRAMADOL HCL 53324696600 Active Shonna Parker APRN Active NAPROXEN 500 MG TABS 1 tablet by mouth twice daily NAPROXEN 54434264026 No Longer Active Baltazar Childers MD Active PROAIR HFA 108 (90 BASE) MCG/ACT AERS 2 puffs four times a d ay as needed ALBUTEROL SULFATE 91077828586 Active KENDALL Juarez Active DEPO-TESTOSTERONE 200 MG/ML OIL as directed RUFINO TOSTERONE CYPIONATE 91988412239 No Longer Active Baltazra Childers MD Active LIPITOR 20 MG TABS Take one by mouth daily in evening ATORVASTATIN CALCIUM 24333156249 No Longer Active Baltazar Childers MD Activ e CRESTOR 10 MG TABS 1 by mouth every day R OSUVASTATIN CALCIUM 75076786887 No Longer Active Baltazar Childers MD Activ e PHENTERMINE HCL 37.5 MG TABS Take one by mouth daily 2 PHENTERMINE HCL 77891557685 No Longer Active Baltazar Childers MD Activ e ROBAXIN-750 750 MG TABS Take one by mouth daily ME THOCARBAMOL 76735885121 Active Baltazar Childers MD Active TIZANIDINE HCL 4 MG TABS 1 daily as needed for muscle spasm 2011 TIZANIDINE HCL 04787332493 No Longer Active Dawna Salazar RN Active RBLFOOMABL-[id number] 50-325-40 MG TABS 1 four time s a day as needed for heacache [id number] 40224055768 Active Shonna Parker APRN Active SUMATRIPTAN SUCCINATE 100 MG TABS 1 tablet by mouth at onset of migraine as needed SUMATRIPTAN SUCCINATE 61209097437 Active Shonna richey APRN Active LORATADINE 10 MG TABS Take one by mouth daily LORATADINE 48267308970 Active Baltazar Childers MD Active OMEPRAZOLE 20 MG CPDR Take one by mouth daily OMEPRAZOLE 71462866193 Active KENDALL Juarez Active HYDROXYZINE HCL 25 MG TABS Take one by mouth daily HYDROXYZINE HCL 38659635267 Active Baltazar Childers MD Active GLIPIZIDE 10 MG TABS 1 tablet by mouth twice daily GLIPIZIDE 46564934620 Active Baltazar Childers MD Active ALPRAZOLAM 1 MG TABS 1 tablet by mouth daily at bedtime for restles s leg ALPRAZOLAM 37553703474 Active Baltazar Childers MD Active METFORMIN HCL 1000 MG TABS Take one by mouth twice daily METFORMIN HCL 39377765000 Active Baltazar Childers MD Active TIZANIDINE HCL 4 MG TABS 1 daily as needed for muscle spasm 2011 TIZANIDINE HCL 4 MG TABS 870795 TIZANIDINE HCL Inactiv e PHENTERMINE HCL 37.5 MG TABS Take one by mouth daily 2 PHENTERMINE HCL 37.5 MG TABS 027776 PHENTERMINE HCL Inactive CRESTOR 10 MG TABS 1 by mouth every day C RESTOR 10 MG TABS 032792 ROSUVASTATIN CALCIUM Inactive LIPITOR 20 MG TABS Take one by mouth daily in evening LIPITOR 20 MG TABS 152100 ATORVASTATIN CALCIUM Inactive DEPO-TESTOSTERONE 200 MG/ML OIL as directed 8 DEPO-TESTOSTERONE 200 MG/ML OIL 936316 TESTOSTERONE CYPIONATE Inactive NAPROXEN 500 MG TABS 1 tablet by mouth twice daily 201 07/27/22 NAPROXEN 500 MG TABS 409957 NAPROXEN Inactive GABAPENTIN 300 MG CAPS 1 po qd x 2 days, then 1 po BID x 2 d ays, then 1 po TID GABAPENTIN 300 MG CAPS 389358 GABAPENTIN Inact amie ONETOUCH ULTRA BLUE STRP Test twice a day ONETOUCH ULTRA BLUE STRP GLUCOSE BLOOD Inactive NAPROXEN SODIUM 220 MG ORAL TABS 1 three times a day as needed 2 NAPROXEN SODIUM 220 MG ORAL TABS 065476 NAPROXEN SODIUM Inactive TOUJEO SOLOSTAR 300 UNIT/ML SC SOPN 10 units SC daily TOUJEO SOLOSTAR 300 UNIT/ML SC SOPN INSULIN GLARGINE Inac tive SUCRALFATE 1 GM TABS 1 four times a day to coat the stomach 2015 SUCRALFATE 1 GM TABS 913299 SUCRALFATE Inactive Immunizations Vaccine Administration Date Value Standard Floyd cription pneumococcal immunization administered Pneumovax 23 [CVX33] pneumococcal polysaccharide vaccine, 23 valent Seasonal influenza vaccine, injectable, containing preservative, for > 3 years old (Afluria, FluLaval, Fluzone, Fluvirin, Fluarix, Agriflu(>= 18 yo)) Fluzone (>3 yrs.) [GHI591] Influenza, seasonal, inject able Seasonal influenza vaccine, injectable, containing preservative, for > 3 years old (Afluria, FluLaval, Fluzone, Fluvirin, Fluarix, Agriflu(>= 18 yo)) Fluzone (>3 yrs.) [[id number]] Influenza, seasonal, inject able Vital Signs Date [...] C - Chemistry sodium, serum 139 mmol/L 161-838 4913/07/07 potassium, serum 4.5 mmol/L 3.5-5.2 chloride, serum [...] Panel - Chemistry sodium, serum 143 mmol/L 091-614 9441/12/19 carbon dioxide, venous blood 32.5 mmol/L 21.0-32 .0 potassium, serum 4.9 mmol/L 3.5-5.2 chloride, serum 101 mmol/L 98-107 blood glucose 129 mg/dL 65-110 urea nitrogen, blood 18 mg/dL 7-18 creatinine, serum 1.79 mg/dL 0.55-1.30 alanine aminotransferase (SGPT), serum 34 U/L 12-78 aspartate aminotransferase (SGOT), serum 26 U/L 15-37 calcium, serum 8.9 mg/dL 8.5-10.1 bilirubin, serum, total 0.30 mg/dL 0.00-1.00 cholesterol, serum 214 mg/dL 161-617 4264/12/19 triglyceride, serum, fasting 351 mg/dL 30-200 HDL cholesterol, serum 52 mg/dL 32-96 LDL cholesterol, serum 92 mg/dL 0-130 Lab Report: HGBA1C - Chemistry hemoglobin A1C, blood, as % of total hemoglobin 7.3 % 4.3-6.0 Lab Report: Renal Panel - Chemistry sodium, serum 141 mmol/L 016-423 9886/08/08 potassium, serum 4.9 mmol/L 3.5-5.2 chloride, serum 101 mmol/L 98-107 carbon dioxide, venous blood 34.1 mmol/L 21.0-32 .0 creatinine, serum 1.98 mg/dL 0.55-1.30 blood glucose 193 mg/dL 65-110 urea nitrogen, blood 30 mg/dL 7-18 calcium, serum 9.8 mg/dL 8.5-10.1 Encounters Code Encounter Date Provider Facility CPT-46051 Level 4 Est. Patient 15:44:38 CDT Shonna Parker APRN [facility] CPT-52932 Level 4 Est. Patient 11:34:17 CDT Baltazar Childers MD [facility] CPT-73676 Level 3 Est. Patient 16:40:40 CDT Baltazar Childers MD [facility] CPT-10252 Level 4 Est. Patient 10:41:24 CDT Baltazar Childers MD [facility] CPT-61712 Level 4 Est. Patient 16:01:48 CDT Baltazar Childers MD [facility] CPT-19391 Level 4 Est. Patient 16:54:07 PRECINCT CAPTAIN Baltazar Childers MD [facility] CPT-62569 Level 4 Est. Patient 15:42:12 CDT Baltazar Childers MD [facility] CPT-80859 Level 4 Est. Patient 11:29:55 CDT Baltazar Childers MD [facility] CPT-75438 Level 4 Est. Patient 14:15:19 CDT Baltazar Childers MD [facility] CPT-62083 Level 4 Est. Patient 12:20:13 CDT Baltazar Childers MD [facility] CPT-33796 Level 4 Est. Patient 14:52:45 PRECINCT CAPTAIN Baltazar Childers MD [facility] CPT-00158 Level 4 Est. Patient 14:18:34 PRECINCT CAPTAIN Baltazar Childers MD [facility] CPT-84848 Level 4 Est. Patient 15:18:29 CDT Baltazar Childers MD [facility] CPT-08088 Level 3 Est. Patient 12:45:34 CDT Baltazar Childers MD [facility] CPT-78080 Level 3 Est. Patient 10:10:11 CDT Baltazar Childers MD [facility] CPT-57348 Level 3 Est. Patient 14:07:50 CDT Baltazar Childers MD [facility] CPT-51166 Level 4 Est. Patient 12:26:10 PRECINCT CAPTAIN Baltazar Childers MD [facility] CPT-37439 Level 4 Est. Patient 14:45:38 CDT Baltazar Childers MD [facility] CPT-77072 Level 4 New Patient 12:30:48 CDT Baltazar hinton MD [facility] Procedures Code Procedure Name Date Entry Date Standard Desc ription CPT-24437 Lipid - LAB USE ONLY 17:39:15 PRECINCT CAPTAIN 9 CPT-22107 HGBA1C - LAB USE ONLY 17:39:15 PRECINCT CAPTAIN CPT-14502 CMP - LAB USE ONLY 17:39:14 PRECINCT CAPTAIN CPT-18658 Venipuncture Draw Fee 17:39:14 PRECINCT CAPTAIN CPT-69190 First Vx - Ix admin via ID I M or jet injects without counseling by physician 16:55:17 PRECINCT CAPTAIN CPT-73744 Fluzone Quadrivalent Intramuscular Suspe nsion 0.5 ML 16:55:17 PRECINCT CAPTAIN CPT-91713 Renal Panel - LAB USE ONLY 17:39:20 CDT 201 10/31/07 CPT-69349 CBC - LAB USE ONLY 17:39:20 CDT CPT-07496 Venipuncture Draw Fee 17:39:20 CDT CPT-51586 Venipuncture Draw Fee 14:33:30 CDT CPT-87502 Renal Panel - LAB USE ONLY 14:33:30 CDT 201 10/31/07 CPT-23875 CBC - LAB USE ONLY 14:33:29 CDT CPT-62943 Venipuncture Draw Fee 14:50:21 PRECINCT CAPTAIN CPT-12948 Immunization Single Admin 17:35:35 CDT 2014 CPT-27329 Fluzone Quadrivalent preservative free ( >=3yrs.) 17:35:35 CDT CPT-03266 Venipuncture Draw Fee 12:10:27 PRECINCT CAPTAIN CPT-06952 Fluzone Quadrivalent Intramuscular Suspe nsion 0.5 ML 10:49:13 CDT CPT-98885 First Vx Component - Ix admi n via ID IM or jet inj without physician counseling 15:17:19 PRECINCT CAPTAIN CPT-08837 Pneumovax 23 15:17:19 PRECINCT CAPTAIN CPT-32933 Pneumovax 14:52:45 PRECINCT CAPTAIN CPT-33505 Venipuncture Draw Fee 14:06:30 PRECINCT CAPTAIN CPT-000 Give Appropriate Flu Vaccine 14:18:34 PRECINCT CAPTAIN 2 CPT-00185 Administration single or combination vac cine inc oral 14:46:00 PRECINCT CAPTAIN CPT-38991 Influenza split virus > age 3 14:46:00 PRECINCT CAPTAIN CPT-OV Office Visit 19:13:16 CDT CPT-29773 Zostavax 18:41:56 CDT CPT-89508 Administration single or combination vac cine inc oral 12:56:39 CDT CPT-78771 Zoster Vaccine (Zostavax) 12:56:39 CDT 2012 CPT-21552 Venipuncture Draw Fee 10:58:57 CDT CPT-28929 Sono pelvis non OB uterus ovaries cervix 17:45:04 CDT CPT-11834 Sono retroperitoneal complete kidneys an d bladder 17:14:36 CDT CPT-OV Office Visit 14:59:38 PRECINCT CAPTAIN CPT-J1070 Depo Testosterone 100 mg 14:50:13 CDT 03/05 CPT-53662 Abx/Therapy Injection 14:50:13 CDT CPT-34487 Administration single or combination vac cine inc oral 14:34:43 CDT CPT-57054 Influenza split virus > age 3 14:34:43 CDT CPT-J1070 Depo Testosterone 100 mg 17:37:13 CDT 01/11 CPT-44209 Abx/Therapy Injection 17:37:13 CDT CPT-34930 Venipuncture Draw Fee 16:30:13 CDT CPT-90250 Venipuncture Draw Fee 16:29:43 CDT CPT-J1070 Depo Testosterone 100 mg 14:45:38 CDT 01/11
--- OUTSIDE RECORDS SUMMARY | 2019-10-27 13:28 | XMS REPORT | Clinical Summary ---
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 Benign neoplasm of colon PERIPHERAL NEUROPATHY [...] a day as needed 2 NAPROXEN SODIUM 72473856835 No Longer Active Baltazar Childers MD Active ATORVASTATIN CALCIUM 20 MG ORAL TABS Take 1 tab daily ATORVASTATIN CALCIUM 79972560380 Active KENDALL Juarez Active FUROSEMIDE 40 MG TABS Take one by mouth daily FUROSEMIDE 55781045560 Active Baltazar Childers MD Active LISINOPRIL 20 MG TABS Take one by mouth daily at bedtime LISINOPRIL 70647710966 Active Baltazar Childers MD Active ONETOUCH ULTRA BLUE STRP Test twice a day GLUCO SE BLOOD 53726540340 No Longer Active Baltazar Childers MD Active TRUEPLUS LANCETS 33G MISC Test twice a day LANCET S 55743681611 Active KENDALL Juarez Active TRUEDRAW LANCING DEVICE MISC Test twice a day L ANCET DEVICES 56227280582 Active Baltazar Childers MD Active TRUETRACK TEST STRP Test twice a day GLUCOSE BLOO D 36471171899 Active KENDALL Juarez Active TRUETRACK BLOOD GLUCOSE W/DEVICE KIT Test twice a day BLOOD GLUCOSE MONITORING SUPPL 19596456983 Active Baltazar Childers MD Activ e HYDROCODONE-ACETAMINOPHEN 7.5-325 MG TABS Take 1 tab every 6-8 hour s PRN HYDROCODONE-ACETAMINOPHEN 07528647801 Active Baltazar Childers MD Active NORTRIPTYLINE HCL 50 MG CAPS 1 every night for neuropathy 4 NORTRIPTYLINE HCL 40407636623 Active Baltazar Childers MD Acti ve GABAPENTIN 300 MG CAPS 1 three times a day GABAPE NTIN 19104067251 Active Baltazar Childers MD Active GABAPENTIN 300 MG CAPS 1 po qd x 2 days, then 1 po BID x 2 d ays, then 1 po TID GABAPENTIN 33554327914 No Longer Active Baltazar silverman MD Active TRAMADOL HCL 50 MG TABS 1 twice a day as needed for pain TRAMADOL HCL 13014686579 Active Baltazar Childers MD Active NAPROXEN 500 MG TABS 1 tablet by mouth twice daily NAPROXEN 98863874735 No Longer Active Baltazar Childers MD Active PROAIR HFA 108 (90 BASE) MCG/ACT AERS 2 puffs four times a d ay as needed ALBUTEROL SULFATE 04667704922 Active KENDALL Juarez Active DEPO-TESTOSTERONE 200 MG/ML OIL as directed RUFINO TOSTERONE CYPIONATE 85022888046 No Longer Active Baltazar Childers MD Active LIPITOR 20 MG TABS Take one by mouth daily in evening ATORVASTATIN CALCIUM 71643225559 No Longer Active Baltazar Childers MD Activ e CRESTOR 10 MG TABS 1 by mouth every day R OSUVASTATIN CALCIUM 70169593850 No Longer Active Baltazar Childers MD Activ e PHENTERMINE HCL 37.5 MG TABS Take one by mouth daily 2 PHENTERMINE HCL 64268740904 No Longer Active Baltazar Childers MD Activ e ROBAXIN-750 750 MG TABS Take one by mouth daily ME THOCARBAMOL 76075770894 Active Baltazar Childers MD Active TIZANIDINE HCL 4 MG TABS 1 daily as needed for muscle spasm 2011 TIZANIDINE HCL 99359910152 No Longer Active Dawna Salazar RN Active [id number] 50-325-40 MG TABS 1 four time s a day as needed for heacache [id number]-NCHYIRPT 18293464879 Active Baltazar Childers MD Active SUMATRIPTAN SUCCINATE 100 MG TABS 1 tablet by mouth at onset of migraine as needed SUMATRIPTAN SUCCINATE 97182139330 Active KENDALL Juarez Active LORATADINE 10 MG TABS Take one by mouth daily LORATADINE 21555258774 Active Baltazar Childers MD Active OMEPRAZOLE 20 MG CPDR Take one by mouth daily OMEPRAZOLE 41794476772 Active [place] Lyons Active HYDROXYZINE HCL 25 MG TABS Take one by mouth daily HYDROXYZINE HCL 48495896471 Active Baltazar Childers MD Active GLIPIZIDE 10 MG TABS 1 tablet by mouth twice daily GLIPIZIDE 15236020976 Active Balatzar Childers MD Active ALPRAZOLAM 1 MG TABS 1 tablet by mouth daily at bedtime for restles s leg ALPRAZOLAM 61804608099 Active Baltazar Childers MD Active METFORMIN HCL 1000 MG TABS Take one by mouth twice daily METFORMIN HCL 00775397982 Active Baltazar Childers MD Active TIZANIDINE HCL 4 MG TABS 1 daily as needed for muscle spasm 2011 TIZANIDINE HCL 4 MG TABS 992139 TIZANIDINE HCL Inactiv e PHENTERMINE HCL 37.5 MG TABS Take one by mouth daily 2 PHENTERMINE HCL 37.5 MG TABS 097383 PHENTERMINE HCL Inactive CRESTOR 10 MG TABS 1 by mouth every day C RESTOR 10 MG TABS 803014 ROSUVASTATIN CALCIUM Inactive LIPITOR 20 MG TABS Take one by mouth daily in evening LIPITOR 20 MG TABS 845869 ATORVASTATIN CALCIUM Inactive DEPO-TESTOSTERONE 200 MG/ML OIL as directed 8 DEPO-TESTOSTERONE 200 MG/ML OIL 411652 TESTOSTERONE CYPIONATE Inactive NAPROXEN 500 MG TABS 1 tablet by mouth twice daily 201 07/27/22 NAPROXEN 500 MG TABS 786200 NAPROXEN Inactive GABAPENTIN 300 MG CAPS 1 po qd x 2 days, then 1 po BID x 2 d ays, then 1 po TID GABAPENTIN 300 MG CAPS 716174 GABAPENTIN Inact amie ONETOUCH ULTRA BLUE STRP Test twice a day ONETOUCH ULTRA BLUE STRP GLUCOSE BLOOD Inactive NAPROXEN SODIUM 220 MG ORAL TABS 1 three times a day as needed 2 NAPROXEN SODIUM 220 MG ORAL TABS 404999 NAPROXEN SODIUM Inactive Immunizations Vaccine Administration Date Value Standard Floyd cription pneumococcal immunization administered Pneumovax 23 [CVX33] pneumococcal polysaccharide vaccine, 23 valent Seasonal influenza vaccine, injectable, containing preservative, for > 3 years old (Afluria, FluLaval, Fluzone, Fluvirin, Fluarix, Agriflu(>= 18 yo)) Fluzone (>3 yrs.) [[id number]] Influenza, seasonal, inject able Seasonal influenza vaccine, injectable, containing preservative, for > 3 years old (Afluria, FluLaval, Fluzone, Fluvirin, Fluarix, Agriflu(>= 18 yo)) Fluzone (>3 yrs.) [[id number]] Influenza, seasonal, inject able Vital Signs Date [...] 7.9 % 4.3-6.0 sodium, serum 139 mmol/L 248-966 5444/02/04 potassium, serum 5.4 mmol/L 3.5-5.2 chloride, serum [...] Panel - Chemistry sodium, serum 138 mmol/L 346-264 3088/11/23 carbon dioxide, venous blood 32.4 mmol/L 21.0-32 .0 potassium, serum 5.7 mmol/L 3.5-5.2 chloride, serum 98 mmol/L 98-107 blood glucose 136 mg/dL 65-110 urea nitrogen, blood 18 mg/dL 7-18 creatinine, serum 1.71 mg/dL 0.55-1.30 alanine aminotransferase (SGPT), serum 71 U/L 12-78 aspartate aminotransferase (SGOT), serum 34 U/L 15-37 calcium, serum 9.4 mg/dL 8.5-10.1 bilirubin, serum, total 0.40 mg/dL 0.00-1.00 cholesterol, serum 405 mg/dL 027-098 9017/11/23 triglyceride, serum, fasting 709 mg/dL 30-200 HDL [...] mg/dL Encounters Code Encounter Date Provider Facility CPT-76851 Level 4 Est. Patient 10:41:24 CDT Baltazar Childers MD [facility] CPT-44846 Level 4 Est. Patient 16:01:48 CDT Baltazar Childers MD [facility] CPT-91802 Level 4 Est. 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 Patient 15:42:12 CDT Baltazar Childers MD [facility] CPT-43371 Level 4 Est. Patient 11:29:55 CDT Baltazar Childers MD [facility] CPT-91629 Level 4 Est. Patient 14:15:19 CDT Baltazar Childers MD [facility] CPT-12861 Level 4 Est. Patient 12:20:13 CDT Baltazar Childers MD [facility] CPT-26330 Level 4 Est. 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 Patient 15:18:29 CDT Baltazar Childers MD [facility] CPT-40012 Level 3 Est. Patient 12:45:34 CDT Baltazar Childers MD [facility] CPT-47702 Level 3 Est. Patient 10:10:11 CDT Baltazar Childers MD [facility] CPT-45510 Level 3 Est. Patient 14:07:50 CDT Baltazar Childers MD [facility] CPT-26294 Level 4 Est. 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 Patient 14:45:38 CDT Baltazar Childers MD [facility] CPT-47172 Level 4 New Patient 12:30:48 CDT Baltazar hinton MD [facility] Procedures Code Procedure Name Date Entry Date Standard Desc ription CPT-25554 Venipuncture Draw Fee 14:50:21 RETAIL SALESWORKER CPT-82588 Immunization Single Admin 17:35:35 CDT 2014 CPT-31269 Fluzone Quadrivalent preservative free ( >=3yrs.) 17:35:35 CDT CPT-96109 Venipuncture Draw Fee 12:10:27 RETAIL SALESWORKER CPT-38568 Fluzone Quadrivalent Intramuscular Suspe nsion 0.5 ML 10:49:13 CDT CPT-62894 First Vx Component - Ix admi n via ID IM or jet inj without physician counseling 15:17:19 RETAIL SALESWORKER CPT-04439 Pneumovax 23 15:17:19 RETAIL SALESWORKER CPT-12070 Pneumovax 14:52:45 RETAIL SALESWORKER CPT-93233 Venipuncture Draw Fee 14:06:30 RETAIL SALESWORKER CPT-000 Give Appropriate Flu Vaccine 14:18:34 RETAIL SALESWORKER 2 CPT-73897 Administration single or combination vac cine inc oral 14:46:00 RETAIL SALESWORKER CPT-97071 Influenza split virus > age 3 14:46:00 RETAIL SALESWORKER CPT-OV Office Visit 19:13:16 CDT CPT-69201 Zostavax 18:41:56 CDT CPT-12009 Administration single or combination vac cine inc oral 12:56:39 CDT CPT-23537 Zoster Vaccine (Zostavax) 12:56:39 CDT 2012 CPT-79986 Venipuncture Draw Fee 10:58:57 CDT CPT-04715 Sono pelvis non OB uterus ovaries cervix 17:45:04 CDT CPT-21559 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
--- OUTSIDE RECORDS SUMMARY | 2019-10-27 13:29 | XMS REPORT | Clinical Summary ---
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 Baltazar Childesr MD Degeneration of lumbar or lumbosacral in [...] mention of hyperactivity DECREASED LIBIDO 799.81 Active Batlazar Wayne Decreased libido COLON POLYPS 211.3 Resolved Lolis Thomas RN EMERGENCY Benign neoplasm of colon PERIPHERAL NEUROPATHY 356.9 [...] MISC Test twice a day LANCET S 44922791238 Active Baltazar Childers MD Active TRUEDRAW LANCING DEVICE MISC Test twice a day L ANCET DEVICES 56369439167 Active Baltazar Childers MD Active TRUETRACK TEST STRP Test twice a day GLUCOSE BLOO D 98354536650 Active Baltazar Childers MD Active TRUETRACK BLOOD GLUCOSE W/DEVICE KIT Test twice a day BLOOD GLUCOSE MONITORING SUPPL 91750523693 Active Bella Suarez RN EMERGENCY Active HYDROCODONE-ACETAMINOPHEN 7.5-325 MG TABS Take 1 tab every 6-8 hour s PRN HYDROCODONE-ACETAMINOPHEN 97313691630 Active Baltazar Childers MD Active NORTRIPTYLINE HCL 50 MG CAPS 1 every night for neuropathy 4 NORTRIPTYLINE HCL 47971637273 Active Baltazar Childers MD Acti ve GABAPENTIN 300 MG CAPS 1 three times a day GABAPE NTIN 01854892601 Active Baltazar Childers MD Active GABAPENTIN 300 MG CAPS 1 po qd x 2 days, then 1 po BID x 2 d ays, then 1 po TID GABAPENTIN 78125987588 No Longer Active Baltazar silverman MD Active TRAMADOL HCL 50 MG TABS 1 twice a day as needed for pain TRAMADOL HCL 74140996826 Active Baltazar Childers MD Active NAPROXEN 500 MG TABS 1 tablet by mouth twice daily NAPROXEN 43557843303 No Longer Active Baltazar Childers MD Active PROAIR HFA 108 (90 BASE) MCG/ACT AERS 2 puffs four times a d ay as needed ALBUTEROL SULFATE 25715651782 Active Baltazar Childers MD Active DEPO-TESTOSTERONE 200 MG/ML OIL as directed RUFINO TOSTERONE CYPIONATE 26055316971 No Longer Active Baltazar Childers MD Active LIPITOR 20 MG TABS Take one by mouth daily in evening ATORVASTATIN CALCIUM 15845658473 No Longer Active Baltazar Childers MD Activ e CRESTOR 10 MG TABS 1 by mouth every day R OSUVASTATIN CALCIUM 32527711550 No Longer Active Baltazar Childers MD Activ e PHENTERMINE HCL 37.5 MG TABS Take one by mouth daily 2 PHENTERMINE HCL 94301001090 No Longer Active Baltazar Childers MD Activ e ROBAXIN-750 750 MG TABS Take one by mouth daily ME THOCARBAMOL 73543373112 Active Baltazar Childers MD Active TIZANIDINE HCL 4 MG TABS 1 daily as needed for muscle spasm 2011 TIZANIDINE HCL 09073198792 No Longer Active Dawna Salazar RN Active ONETOUCH ULTRA BLUE STRP Test twice a day GLUCO SE BLOOD 38523860539 Active Baltazar Childers MD Active [id number] 50-325-40 MG TABS 1 four time s a day as needed for heacache [id number] 75716179103 Active Baltazar Childers MD Active SUMATRIPTAN SUCCINATE 100 MG TABS 1 tablet by mouth at onset of migraine as needed SUMATRIPTAN SUCCINATE 35764705993 Active Baltazar barron MD Active LORATADINE 10 MG TABS Take one by mouth daily LORATADINE 82284726034 Active Baltazar Childers MD Active FUROSEMIDE 40 MG TABS Take one by mouth daily FUROSEMIDE 47766697867 Active Baltazar Childers MD Active LISINOPRIL 20 MG TABS Take one by mouth daily at bedtime LISINOPRIL 15438298067 Active Baltazar Childers MD Active OMEPRAZOLE 20 MG CPDR Take one by mouth daily OMEPRAZOLE 69505282287 Active Baltazar Childers MD Active HYDROXYZINE HCL 25 MG TABS Take one by mouth daily HYDROXYZINE HCL 63002962633 Active Baltazar Childers MD Active GLIPIZIDE 10 MG TABS 1 tablet by mouth twice daily GLIPIZIDE 86761396638 Active Baltazar Childers MD Active ALPRAZOLAM 1 MG TABS 1 tablet by mouth daily at bedtime for restles s leg ALPRAZOLAM 60686748509 Active Baltazar Childers MD Active METFORMIN HCL 1000 MG TABS Take one by mouth twice daily METFORMIN HCL 26169157685 Active Baltazar Childers MD Active TIZANIDINE HCL 4 MG TABS 1 daily as needed for muscle spasm 2011 TIZANIDINE HCL 4 MG TABS 190188 TIZANIDINE HCL Inactiv e PHENTERMINE HCL 37.5 MG TABS Take one by mouth daily 2 PHENTERMINE HCL 37.5 MG TABS 977520 PHENTERMINE HCL Inactive CRESTOR 10 MG TABS 1 by mouth every day C RESTOR 10 MG TABS ROSUVASTATIN CALCIUM Inactive LIPITOR 20 MG TABS Take one by mouth daily in evening LIPITOR 20 MG TABS 443804 ATORVASTATIN CALCIUM Inactive DEPO-TESTOSTERONE 200 MG/ML OIL as directed 8 DEPO-TESTOSTERONE 200 MG/ML OIL 463486 TESTOSTERONE CYPIONATE Inactive NAPROXEN 500 MG TABS 1 tablet by mouth twice daily 201 07/27/22 NAPROXEN 500 MG TABS 504700 NAPROXEN Inactive GABAPENTIN 300 MG CAPS 1 po qd x 2 days, then 1 po BID x 2 d ays, then 1 po TID GABAPENTIN 300 MG CAPS 180713 GABAPENTIN Inact amie Immunizations Vaccine Administration Date Value Standard Floyd cription pneumococcal immunization administered Pneumovax 23 [CVX33] pneumococcal polysaccharide vaccine, 23 valent Seasonal influenza vaccine, injectable, containing preservative, for > 3 years old (Afluria, FluLaval, Fluzone, Fluvirin, Fluarix, Agriflu(>= 18 yo)) Fluzone (>3 yrs.) [IGY618] Influenza, seasonal, inject able Seasonal influenza vaccine, injectable, containing preservative, for > 3 years old (Afluria, FluLaval, Fluzone, Fluvirin, Fluarix, Agriflu(>= 18 yo)) Fluzone (>3 yrs.) [YVE230] Influenza, seasonal, inject able Vital Signs Date [...] - Chem istry sodium, serum 140 mmol/L 602-616 4455/05/05 potassium, serum 4.9 mmol/L 3.5-5.2 chloride, serum [...] Panel - Chemistry sodium, serum 139 mmol/L 685-641 8179/01/20 potassium, serum 5.3 mmol/L 3.5-5.2 chloride, serum [...] mg/g mg/g{creat} 0-29 cholesterol, serum 319 mg/dL 692-032 7284/08/21 triglyceride, serum, fasting 546 mg/dL 30-200 HDL cholesterol, serum 39 mg/dL 32-96 LDL cholesterol, serum 167.00 mg/dL 5.00-130.00 hemoglobin A1C, blood, as % of total hemoglobin 7.7 % 4.3-6.0 sodium, serum 138 mmol/L 898-417 0123/08/21 potassium, serum 4.3 mmol/L 3.5-5.2 chloride, serum [...] 0-19 Encounters Code Encounter Date Provider Facility CPT-19934 Level 4 Est. Patient 11:29:55 CDT Baltazar Childers MD [facility] CPT-77855 Level 4 Est. Patient 14:15:19 CDT Baltazar Childers MD [facility] CPT-45049 Level 4 Est. Patient 12:20:13 CDT Baltazar Childers MD [facility] CPT-63203 Level 4 Est. 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 Patient 14:18:34 FLIGHT ATTENDANT RAMP Baltazar Childers MD [facility] CPT-29061 Level 4 Est. Patient 15:18:29 CDT Baltazar Childers MD [facility] CPT-45393 Level 3 Est. Patient 12:45:34 CDT Baltazar Childers MD [facility] CPT-03842 Level 3 Est. Patient 10:10:11 CDT Baltazar Childers MD [facility] CPT-04889 Level 3 Est. Patient 14:07:50 CDT Baltazar Childers MD [facility] CPT-92227 Level 4 Est. Patient 12:26:10 FLIGHT ATTENDANT RAMP Baltazar Childers MD [facility] CPT-51972 Level 4 Est. Patient 14:45:38 CDT Baltazar Childers MD [facility] CPT-67894 Level 4 New Patient 12:30:48 CDT Baltazar hinton MD [facility] Procedures Code Procedure Name Date Entry Date Standard Desc ription CPT-95183 Venipuncture Draw Fee 12:10:27 FLIGHT ATTENDANT RAMP CPT-98781 Fluzone Quadrivalent Intramuscular Suspe nsion 0.5 ML 10:49:13 CDT CPT-34474 First Vx Component - Ix admi n via ID IM or jet inj without physician counseling 15:17:19 FLIGHT ATTENDANT RAMP CPT-66712 Pneumovax 15:17:19 FLIGHT ATTENDANT RAMP CPT-43123 Pneumovax 14:52:45 FLIGHT ATTENDANT RAMP CPT-01397 Venipuncture Draw Fee 14:06:30 FLIGHT ATTENDANT RAMP CPT-000 Give Appropriate Flu Vaccine 14:18:34 FLIGHT ATTENDANT RAMP 2 CPT-70738 Administration single or combination vac cine inc oral 14:46:00 FLIGHT ATTENDANT RAMP CPT-05762 Influenza split virus > age 3 14:46:00 FLIGHT ATTENDANT RAMP CPT-OV Office Visit 19:13:16 CDT CPT-19836 Zostavax 18:41:56 CDT CPT-67410 Administration single or combination vac cine inc oral 12:56:39 CDT CPT-40874 Zoster Vaccine (Zostavax) 12:56:39 CDT 2012 CPT-96790 Venipuncture Draw Fee 10:58:57 CDT CPT-91395 Sono pelvis non OB uterus ovaries cervix 17:45:04 CDT CPT-38243 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
--- OUTSIDE RECORDS SUMMARY | 2019-10-27 13:29 | XMS REPORT | Clinical Summary ---
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 Benign neoplasm of colon PERIPHERAL NEUROPATHY [...] a day to coat the stomach SUCRALFATE 27988623886 Active Baltazar Childers MD Active PEN NEEDLES 31G X 6 MM MISC use 1 daily INSULIN PEN NEEDLE 55675122128 Active Martita Herbert RMA Active TOUJEO SOLOSTAR 300 UNIT/ML SC SOPN 10 units SC daily INSULIN GLARGINE 10898572898 No Longer Active Martita Herbert RMA Active LANTUS SOLOSTAR 100 UNIT/ML SC SOPN 10 units SC daily INSULIN GLARGINE 95938161883 Active KENDALL Juarez Active NAPROXEN SODIUM 220 MG ORAL TABS 1 three times a day as needed 2 NAPROXEN SODIUM 39504658353 No Longer Active Baltazar Childers MD Active ATORVASTATIN CALCIUM 20 MG ORAL TABS Take 1 tab daily ATORVASTATIN CALCIUM 53000286994 Active Baltazar Childers MD Active FUROSEMIDE 40 MG TABS Take one by mouth daily FUROSEMIDE 13388974142 Active Baltazar Childers MD Active LISINOPRIL 20 MG TABS Take one by mouth daily at bedtime LISINOPRIL 89776215483 Active Baltazar Childers MD Active ONETOUCH ULTRA BLUE STRP Test twice a day GLUCO SE BLOOD 62563022553 No Longer Active Baltazar Childers MD Active TRUEPLUS LANCETS 33G MISC Test twice a day LANCET S 62574280582 Active KENDALL Juarez Active TRUEDRAW LANCING DEVICE MISC Test twice a day L ANCET DEVICES 38582306115 Active Baltazar Childers MD Active TRUETRACK TEST STRP Test twice a day GLUCOSE BLOO D 74009944630 Active KENDALL Juarez Active TRUETRACK BLOOD GLUCOSE W/DEVICE KIT Test twice a day BLOOD GLUCOSE MONITORING SUPPL 55093803028 Active Baltazar Childers MD Activ e HYDROCODONE-ACETAMINOPHEN 7.5-325 MG TABS Take 1 tab every 6-8 hour s PRN HYDROCODONE-ACETAMINOPHEN 41341963060 Active Baltazar Childers MD Active NORTRIPTYLINE HCL 50 MG CAPS 1 every night for neuropathy 4 NORTRIPTYLINE HCL 65394483914 Active KENDALL Juarez Acti ve GABAPENTIN 300 MG CAPS 1 three times a day GABAPE NTIN 55541789753 Active Baltazar Childers MD Active GABAPENTIN 300 MG CAPS 1 po qd x 2 days, then 1 po BID x 2 d ays, then 1 po TID GABAPENTIN 41454947641 No Longer Active Baltazar silverman MD Active TRAMADOL HCL 50 MG TABS 1 twice a day as needed for pain TRAMADOL HCL 56054265457 Active Baltazar Childers MD Active NAPROXEN 500 MG TABS 1 tablet by mouth twice daily NAPROXEN 10196052946 No Longer Active Baltazar Childers MD Active PROAIR HFA 108 (90 BASE) MCG/ACT AERS 2 puffs four times a d ay as needed ALBUTEROL SULFATE 52414163832 Active Baltazar Childers MD Active DEPO-TESTOSTERONE 200 MG/ML OIL as directed RUFINO TOSTERONE CYPIONATE 76043904822 No Longer Active Baltazar Childers MD Active LIPITOR 20 MG TABS Take one by mouth daily in evening ATORVASTATIN CALCIUM 63580540667 No Longer Active Baltazar Childers MD Activ e CRESTOR 10 MG TABS 1 by mouth every day R OSUVASTATIN CALCIUM 95675138612 No Longer Active Baltazar Childers MD Activ e PHENTERMINE HCL 37.5 MG TABS Take one by mouth daily 2 PHENTERMINE HCL 06403869713 No Longer Active Baltazar Childers MD Activ e ROBAXIN-750 750 MG TABS Take one by mouth daily ME THOCARBAMOL 77316187969 Active Baltazar Childers MD Active TIZANIDINE HCL 4 MG TABS 1 daily as needed for muscle spasm 2011 TIZANIDINE HCL 85347746629 No Longer Active Dawna Salazar RN Active [id number] 50-325-40 MG TABS 1 four time s a day as needed for heacache [id number] 61634584332 Active Baltazar Childers MD Active SUMATRIPTAN SUCCINATE 100 MG TABS 1 tablet by mouth at onset of migraine as needed SUMATRIPTAN SUCCINATE 59285173398 Active Bella STEPHEN RN Active LORATADINE 10 MG TABS Take one by mouth daily LORATADINE 88600687447 Active Baltazar Childers MD Active OMEPRAZOLE 20 MG CPDR Take one by mouth daily OMEPRAZOLE 74340312627 Active Crystal Lyons Active HYDROXYZINE HCL 25 MG TABS Take one by mouth daily HYDROXYZINE HCL 02537717392 Active Baltazar Childers MD Active GLIPIZIDE 10 MG TABS 1 tablet by mouth twice daily GLIPIZIDE 66348224239 Active CÉSAR JuarezBetsey Active ALPRAZOLAM 1 MG TABS 1 tablet by mouth daily at bedtime for restles s leg ALPRAZOLAM 89048764681 Active Baltazar Chliders MD Active METFORMIN HCL 1000 MG TABS Take one by mouth twice daily METFORMIN HCL 84763458486 Active Baltazar Childers MD Active TIZANIDINE HCL 4 MG TABS 1 daily as needed for muscle spasm 2011 TIZANIDINE HCL 4 MG TABS 076212 TIZANIDINE HCL Inactiv e PHENTERMINE HCL 37.5 MG TABS Take one by mouth daily 2 PHENTERMINE HCL 37.5 MG TABS 419930 PHENTERMINE HCL Inactive CRESTOR 10 MG TABS 1 by mouth every day C RESTOR 10 MG TABS 281705 ROSUVASTATIN CALCIUM Inactive LIPITOR 20 MG TABS Take one by mouth daily in evening LIPITOR 20 MG TABS 118076 ATORVASTATIN CALCIUM Inactive DEPO-TESTOSTERONE 200 MG/ML OIL as directed 8 DEPO-TESTOSTERONE 200 MG/ML OIL 232914 TESTOSTERONE CYPIONATE Inactive NAPROXEN 500 MG TABS 1 tablet by mouth twice daily 201 07/27/22 NAPROXEN 500 MG TABS 803361 NAPROXEN Inactive GABAPENTIN 300 MG CAPS 1 po qd x 2 days, then 1 po BID x 2 d ays, then 1 po TID GABAPENTIN 300 MG CAPS 304245 GABAPENTIN Inact amie ONETOUCH ULTRA BLUE STRP Test twice a day ONETOUCH ULTRA BLUE STRP GLUCOSE BLOOD Inactive NAPROXEN SODIUM 220 MG ORAL TABS 1 three times a day as needed 2 NAPROXEN SODIUM 220 MG ORAL TABS 410356 NAPROXEN SODIUM Inactive TOUJEO SOLOSTAR 300 UNIT/ML [...] Fluarix, Agriflu(>= 18 yo)) Fluzone (>3 yrs.) [[id number]] Influenza, seasonal, inject able Seasonal influenza vaccine, injectable, containing preservative, for > 3 years old (Afluria, FluLaval, Fluzone, Fluvirin, Fluarix, Agriflu(>= 18 yo)) Fluzone (>3 yrs.) [[id number]] Influenza, seasonal, inject able Vital Signs Date [...] C - Chemistry sodium, serum 139 mmol/L 800-740 7124/07/07 potassium, serum 4.5 mmol/L 3.5-5.2 chloride, serum [...] 7.9 % 4.3-6.0 sodium, serum 139 mmol/L 412-212 0552/02/04 potassium, serum 5.4 mmol/L 3.5-5.2 chloride, serum [...] Panel - Chemistry sodium, serum 138 mmol/L 135-249 9372/11/23 carbon dioxide, venous blood 32.4 mmol/L 21.0-32 .0 potassium, serum 5.7 mmol/L 3.5-5.2 chloride, serum 98 mmol/L 98-107 blood glucose 136 mg/dL 65-110 urea nitrogen, blood 18 mg/dL 7-18 creatinine, serum 1.71 mg/dL 0.55-1.30 alanine aminotransferase (SGPT), serum 71 U/L 12-78 aspartate aminotransferase (SGOT), serum 34 U/L 15-37 calcium, serum 9.4 mg/dL 8.5-10.1 bilirubin, serum, total 0.40 mg/dL 0.00-1.00 cholesterol, serum 405 mg/dL 581-329 1368/11/23 triglyceride, serum, fasting 709 mg/dL 30-200 HDL [...] Panel - Chemistry sodium, serum 141 mmol/L 245-874 5700/08/08 potassium, serum 4.9 mmol/L 3.5-5.2 chloride, serum [...] mg/dL Encounters Code Encounter Date Provider Facility CPT-25444 Level 4 Est. Patient 11:34:17 CDT Baltazar Childers MD [facility] CPT-70963 Level 3 Est. Patient 16:40:40 CDT Baltazar Childers MD [facility] CPT-83870 Level 4 Est. Patient 10:41:24 CDT Baltazar Childers MD [facility] CPT-47658 Level 4 Est. Patient 16:01:48 CDT Baltazar Childers MD [facility] CPT-27414 Level 4 Est. 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 Patient 15:42:12 CDT Baltazar Childers MD [facility] CPT-88256 Level 4 Est. Patient 11:29:55 CDT Baltazar Childers MD [facility] CPT-96366 Level 4 Est. Patient 14:15:19 CDT Baltazar Childers MD [facility] CPT-88243 Level 4 Est. Patient 12:20:13 CDT Baltazar Childers MD [facility] CPT-07349 Level 4 Est. Patient 14:52:45 SHOT CORE DRILL OPERATOR Baltazar Childers MD [facility] CPT-35105 Level 4 Est. Patient 14:18:34 SHOT CORE DRILL OPERATOR Baltazar Childers MD [facility] CPT-10374 Level 4 Est. Patient 15:18:29 CDT Baltazar Childers MD [facility] CPT-39674 Level 3 Est. Patient 12:45:34 CDT Baltazar Childers MD [facility] CPT-91623 Level 3 Est. Patient 10:10:11 CDT Baltazar Childers MD [facility] CPT-49902 Level 3 Est. Patient 14:07:50 CDT Baltazar Childers MD [facility] CPT-82103 Level 4 Est. Patient 12:26:10 SHOT CORE DRILL OPERATOR Baltazar Childers MD [facility] CPT-70266 Level 4 Est. Patient 14:45:38 CDT Baltazar Childers MD [facility] CPT-87552 Level 4 New Patient 12:30:48 CDT Baltazar hinton MD [facility] Procedures Code Procedure Name Date Entry Date Standard Desc ription CPT-30942 Renal Panel - LAB USE ONLY 17:39:20 CDT 201 10/31/07 CPT-37749 CBC - LAB USE ONLY 17:39:20 CDT CPT-91717 Venipuncture Draw Fee 17:39:20 CDT CPT-16864 Venipuncture Draw Fee 14:33:30 CDT CPT-77541 Renal Panel - LAB USE ONLY 14:33:30 CDT 201 10/31/07 CPT-81258 CBC - LAB USE ONLY 14:33:29 CDT CPT-65622 Venipuncture Draw Fee 14:50:21 SHOT CORE DRILL OPERATOR CPT-22682 Immunization Single Admin 17:35:35 CDT 2014 CPT-02072 Fluzone Quadrivalent preservative free ( >=3yrs.) 17:35:35 CDT CPT-66668 Venipuncture Draw Fee 12:10:27 SHOT CORE DRILL OPERATOR CPT-88865 Fluzone Quadrivalent Intramuscular Suspe nsion 0.5 ML 10:49:13 CDT CPT-36812 First Vx Component - Ix admi n via ID IM or jet inj without physician counseling 15:17:19 SHOT CORE DRILL OPERATOR CPT-95461 Pneumovax 15:17:19 SHOT CORE DRILL OPERATOR CPT-14035 Pneumovax 14:52:45 SHOT CORE DRILL OPERATOR CPT-71425 Venipuncture Draw Fee 14:06:30 SHOT CORE DRILL OPERATOR CPT-000 Give Appropriate Flu Vaccine 14:18:34 SHOT CORE DRILL OPERATOR 2 CPT-81251 Administration single or combination vac cine inc oral 14:46:00 SHOT CORE DRILL OPERATOR CPT-49407 Influenza split virus > age 3 14:46:00 SHOT CORE DRILL OPERATOR CPT-OV Office Visit 19:13:16 CDT CPT-00793 Zostavax 18:41:56 CDT CPT-91056 Administration single or combination vac cine inc oral 12:56:39 CDT CPT-24365 Zoster Vaccine (Zostavax) 12:56:39 CDT 2012 CPT-57394 Venipuncture Draw Fee 10:58:57 CDT CPT-60329 Sono pelvis non OB uterus ovaries cervix 17:45:04 CDT CPT-42325 Sono retroperitoneal complete kidneys an d bladder 17:14:36 CDT CPT-OV Office Visit 14:59:38 SHOT CORE DRILL OPERATOR CPT-J1070 Depo Testosterone 100 mg 14:50:13 CDT 03/05 CPT-28056 Abx/Therapy Injection 14:50:13 CDT CPT-88221 Administration single or combination vac cine inc oral 14:34:43 CDT CPT-20642 Influenza split virus > age 3 14:34:43 CDT CPT-J1070 Depo Testosterone 100 mg 17:37:13 CDT 01/11 CPT-45638 Abx/Therapy Injection 17:37:13 CDT CPT-04642 Venipuncture Draw Fee 16:30:13 CDT CPT-11370 Venipuncture Draw Fee 16:29:43 CDT CPT-J1070 Depo Testosterone 100 mg 14:45:38 CDT 01/11
--- OUTSIDE RECORDS SUMMARY | 2019-10-27 13:29 | XMS REPORT | Clinical Summary ---
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 Benign neoplasm of colon PERIPHERAL NEUROPATHY 356.9 [...] a day as needed 2 NAPROXEN SODIUM 57797406321 No Longer Active Baltazar Childers MD Active ATORVASTATIN CALCIUM 20 MG ORAL TABS Take 1 tab daily ATORVASTATIN CALCIUM 99696741514 Active KENDALL Juarez Active FUROSEMIDE 40 MG TABS Take one by mouth daily FUROSEMIDE 06888529947 Active Baltazar Childers MD Active LISINOPRIL 20 MG TABS Take one by mouth daily at bedtime LISINOPRIL 13133367857 Active KENDALL Juarez Active ONETOUCH ULTRA BLUE STRP Test twice a day GLUCO SE BLOOD 21113107982 No Longer Active Baltazar Childers MD Active TRUEPLUS LANCETS 33G MISC Test twice a day LANCET S 79649994748 Active KENDALL Juarez Active TRUEDRAW LANCING DEVICE MISC Test twice a day L ANCET DEVICES 80480486034 Active Baltazar Childers MD Active TRUETRACK TEST STRP Test twice a day GLUCOSE BLOO D 53636234160 Active Baltazar Childers MD Active TRUETRACK BLOOD GLUCOSE W/DEVICE KIT Test twice a day BLOOD GLUCOSE MONITORING SUPPL 76870879609 Active Baltazar Childers MD Activ e HYDROCODONE-ACETAMINOPHEN 7.5-325 MG TABS Take 1 tab every 6-8 hour s PRN HYDROCODONE-ACETAMINOPHEN 82616616783 Active Baltazar Childers MD Active NORTRIPTYLINE HCL 50 MG CAPS 1 every night for neuropathy 4 NORTRIPTYLINE HCL 15827209077 Active Baltazar Childers MD Acti ve GABAPENTIN 300 MG CAPS 1 three times a day GABAPE NTIN 40765519292 Active KENDALL Juarez Active GABAPENTIN 300 MG CAPS 1 po qd x 2 days, then 1 po BID x 2 d ays, then 1 po TID GABAPENTIN 18637537885 No Longer Active Baltazar silverman MD Active TRAMADOL HCL 50 MG TABS 1 twice a day as needed for pain TRAMADOL HCL 85222370323 Active Baltazar Childers MD Active NAPROXEN 500 MG TABS 1 tablet by mouth twice daily NAPROXEN 14294648987 No Longer Active Baltazar Childers MD Active PROAIR HFA 108 (90 BASE) MCG/ACT AERS 2 puffs four times a d ay as needed ALBUTEROL SULFATE 67291135635 Active KENDALL Juarez Active DEPO-TESTOSTERONE 200 MG/ML OIL as directed RUFINO TOSTERONE CYPIONATE 25948944161 No Longer Active Baltazar Childers MD Active LIPITOR 20 MG TABS Take one by mouth daily in evening ATORVASTATIN CALCIUM 83842069633 No Longer Active Baltazar Childers MD Activ e CRESTOR 10 MG TABS 1 by mouth every day R OSUVASTATIN CALCIUM 64166059696 No Longer Active Baltazar Childers MD Activ e PHENTERMINE HCL 37.5 MG TABS Take one by mouth daily 2 PHENTERMINE HCL 02336841496 No Longer Active Baltazar Childers MD Activ e ROBAXIN-750 750 MG TABS Take one by mouth daily ME THOCARBAMOL 23449307219 Active Baltazar Childers MD Active TIZANIDINE HCL 4 MG TABS 1 daily as needed for muscle spasm 2011 TIZANIDINE HCL 55582433120 No Longer Active Dawna Salazar RN Active [id number] 50-325-40 MG TABS 1 four time s a day as needed for heacache [id number] 08003040614 Active Baltazar Childers MD Active SUMATRIPTAN SUCCINATE 100 MG TABS 1 tablet by mouth at onset of migraine as needed SUMATRIPTAN SUCCINATE 29752212691 Active KENDALL Juarez Active LORATADINE 10 MG TABS Take one by mouth daily LORATADINE 71424286655 Active Baltazar Childers MD Active OMEPRAZOLE 20 MG CPDR Take one by mouth daily OMEPRAZOLE 99822115370 Active Baltazar Childers MD Active HYDROXYZINE HCL 25 MG TABS Take one by mouth daily HYDROXYZINE HCL 75002405479 Active Baltazar Childers MD Active GLIPIZIDE 10 MG TABS 1 tablet by mouth twice daily GLIPIZIDE 99732624989 Active Bella Suarez APRN Active ALPRAZOLAM 1 MG TABS 1 tablet by mouth daily at bedtime for restles s leg ALPRAZOLAM 76172962176 Active Baltazar Childers MD Active METFORMIN HCL 1000 MG TABS Take one by mouth twice daily METFORMIN HCL 07918582198 Active Baltazar Childers MD Active TIZANIDINE HCL 4 MG TABS 1 daily as needed for muscle spasm 2011 TIZANIDINE HCL 4 MG TABS 443451 TIZANIDINE HCL Inactiv e PHENTERMINE HCL 37.5 MG TABS Take one by mouth daily 2 PHENTERMINE HCL 37.5 MG TABS 970869 PHENTERMINE HCL Inactive CRESTOR 10 MG TABS 1 by mouth every day C RESTOR 10 MG TABS ROSUVASTATIN CALCIUM Inactive LIPITOR 20 MG TABS Take one by mouth daily in evening LIPITOR 20 MG TABS 735302 ATORVASTATIN CALCIUM Inactive DEPO-TESTOSTERONE 200 MG/ML OIL as directed 8 DEPO-TESTOSTERONE 200 MG/ML OIL 980695 TESTOSTERONE CYPIONATE Inactive NAPROXEN 500 MG TABS 1 tablet by mouth twice daily 201 07/27/22 NAPROXEN 500 MG TABS 171254 NAPROXEN Inactive GABAPENTIN 300 MG CAPS 1 po qd x 2 days, then 1 po BID x 2 d ays, then 1 po TID GABAPENTIN 300 MG CAPS 897279 GABAPENTIN Inact amie ONETOUCH ULTRA BLUE STRP Test twice a day ONETOUCH ULTRA BLUE STRP GLUCOSE BLOOD Inactive NAPROXEN SODIUM 220 MG ORAL TABS 1 three times a day as needed 2 NAPROXEN SODIUM 220 MG ORAL TABS 988830 NAPROXEN SODIUM Inactive Immunizations Vaccine Administration Date Value Standard Floyd cription pneumococcal immunization administered Pneumovax 23 [CVX33] pneumococcal polysaccharide vaccine, 23 valent Seasonal influenza vaccine, injectable, containing preservative, for > 3 years old (Afluria, FluLaval, Fluzone, Fluvirin, Fluarix, Agriflu(>= 18 yo)) Fluzone (>3 yrs.) [[id number]] Influenza, seasonal, inject able Seasonal influenza vaccine, injectable, containing preservative, for > 3 years old (Afluria, FluLaval, Fluzone, Fluvirin, Fluarix, Agriflu(>= 18 yo)) Fluzone (>3 yrs.) [[id number]] Influenza, seasonal, inject able Vital Signs Date [...] - Chem istry sodium, serum 140 mmol/L 685-826 4331/05/05 potassium, serum 4.9 mmol/L 3.5-5.2 chloride, serum 99 mmol/L 98-107 carbon dioxide, venous blood 34.3 mmol/L 21.0-32 .0 blood glucose 132 mg/dL 65-110 calcium, serum 10.1 mg/dL 8.5-10.1 urea nitrogen, blood 23 mg/dL 7-18 creatinine, serum 2.00 mg/dL 0.60-1.30 Lab Report: CBC, HGBA1C, Renal Panel - C hemistry hemoglobin A1C, blood, as % of total hemoglobin 7.9 % 4.3-6.0 sodium, serum 139 mmol/L 831-494 8301/02/04 potassium, serum 5.4 mmol/L 3.5-5.2 chloride, serum [...] Panel - Chemistry sodium, serum 138 mmol/L 982-428 0362/11/23 carbon dioxide, venous blood 32.4 mmol/L 21.0-32 .0 potassium, serum 5.7 mmol/L 3.5-5.2 chloride, serum 98 mmol/L 98-107 blood glucose 136 mg/dL 65-110 urea nitrogen, blood 18 mg/dL 7-18 creatinine, serum 1.71 mg/dL 0.55-1.30 alanine aminotransferase (SGPT), serum 71 U/L 12-78 aspartate aminotransferase (SGOT), serum 34 U/L 15-37 calcium, serum 9.4 mg/dL 8.5-10.1 bilirubin, serum, total 0.40 mg/dL 0.00-1.00 cholesterol, serum 405 mg/dL 999-655 6781/11/23 triglyceride, serum, fasting 709 mg/dL 30-200 HDL [...] mg/dL Encounters Code Encounter Date Provider Facility CPT-80086 Level 4 Est. Patient 16:54:07 LAND CLEARER Baltazar Childers MD [facility] CPT-72524 Level 4 Est. Patient 15:42:12 CDT Baltazar Childers MD [facility] CPT-04934 Level 4 Est. Patient 11:29:55 CDT Baltazar Chliders MD [facility] CPT-79738 Level 4 Est. Patient 14:15:19 CDT Baltazar Childers MD [facility] CPT-96089 Level 4 Est. Patient 12:20:13 CDT Baltazar Childers MD [facility] CPT-09534 Level 4 Est. Patient 14:52:45 LAND CLEARER Baltazar Childers MD [facility] CPT-55046 Level 4 Est. Patient 14:18:34 LAND CLEARER Baltazar Childers MD [facility] CPT-32506 Level 4 Est. Patient 15:18:29 CDT Baltazar Childers MD [facility] CPT-16338 Level 3 Est. Patient 12:45:34 CDT Baltazar Childers MD [facility] CPT-03559 Level 3 Est. Patient 10:10:11 CDT Baltazar Childers MD [facility] CPT-28562 Level 3 Est. Patient 14:07:50 CDT Baltazar Childers MD [facility] CPT-86622 Level 4 Est. Patient 12:26:10 LAND CLEARER Baltazar Childers MD [facility] CPT-56774 Level 4 Est. Patient 14:45:38 CDT Baltazar Childers MD [facility] CPT-56889 Level 4 New Patient 12:30:48 CDT Baltazar hinton MD [facility] Procedures Code Procedure Name Date Entry Date Standard Desc ription CPT-33403 Venipuncture Draw Fee 14:50:21 LAND CLEARER CPT-43261 Immunization Single Admin 17:35:35 CDT 2014 CPT-82548 Fluzone Quadrivalent preservative free ( >=3yrs.) 17:35:35 CDT CPT-76233 Venipuncture Draw Fee 12:10:27 LAND CLEARER CPT-29075 Fluzone Quadrivalent Intramuscular Suspe nsion 0.5 ML 10:49:13 CDT CPT-15644 First Vx Component - Ix admi n via ID IM or jet inj without physician counseling 15:17:19 LAND CLEARER CPT-45827 Pneumovax 23 15:17:19 LAND CLEARER CPT-24169 Pneumovax 14:52:45 LAND CLEARER CPT-09875 Venipuncture Draw Fee 14:06:30 LAND CLEARER CPT-000 Give Appropriate Flu Vaccine 14:18:34 LAND CLEARER 2 CPT-20268 Administration single or combination vac cine inc oral 14:46:00 LAND CLEARER CPT-25489 Influenza split virus > age 3 14:46:00 LAND CLEARER CPT-OV Office Visit 19:13:16 CDT CPT-63390 Zostavax 18:41:56 CDT CPT-39964 Administration single or combination vac cine inc oral 12:56:39 CDT CPT-41663 Zoster Vaccine (Zostavax) 12:56:39 CDT 2012 CPT-72333 Venipuncture Draw Fee 10:58:57 CDT CPT-91212 Sono pelvis non OB uterus ovaries cervix 17:45:04 CDT CPT-04894 Sono retroperitoneal complete kidneys an d bladder 17:14:36 CDT CPT-OV Office Visit 14:59:38 LAND CLEARER CPT-J1070 Depo Testosterone 100 mg 14:50:13 CDT 03/05 CPT-29054 Abx/Therapy Injection 14:50:13 CDT CPT-34970 Administration single or combination vac cine inc oral 14:34:43 CDT CPT-86241 Influenza split virus > age 3 14:34:43 CDT CPT-J1070 Depo Testosterone 100 mg 17:37:13 CDT 01/11 CPT-84757 Abx/Therapy Injection 17:37:13 CDT CPT-24436 Venipuncture Draw Fee 16:30:13 CDT CPT-74251 Venipuncture Draw Fee 16:29:43 CDT CPT-J1070 Depo Testosterone 100 mg 14:45:38 CDT 01/11
--- OUTSIDE RECORDS SUMMARY | 2019-10-27 13:29 | XMS REPORT | Clinical Summary ---
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 Benign neoplasm of colon PERIPHERAL NEUROPATHY [...] II,controlled w/neurologic complications 250 .60 Active Baltazar Chidlers MD Diabetes mellitus wi th neurological manifestations, [...] a day to coat the stomach SUCRALFATE 10880372950 Active Baltazar Childers MD Active PEN NEEDLES 31G X 6 MM MISC use 1 daily INSULIN PEN NEEDLE 37270583880 Active Bella Suarez SENIOR CYTOGENETICS LABORATORY DIRECTOR Active TOUJEO SOLOSTAR 300 UNIT/ML SC SOPN 10 units SC daily INSULIN GLARGINE 75100449000 No Longer Active Martita Godinez RMA Active LANTUS SOLOSTAR 100 UNIT/ML SC SOPN 10 units SC daily INSULIN GLARGINE 87839492771 Active KENDALL Juarez Active NAPROXEN SODIUM 220 MG ORAL TABS 1 three times a day as needed 2 NAPROXEN SODIUM 00131319616 No Longer Active Baltazar Childers MD Active ATORVASTATIN CALCIUM 20 MG ORAL TABS Take 1 tab daily ATORVASTATIN CALCIUM 77247725568 Active KENDALL Juarez Active FUROSEMIDE 40 MG TABS Take one by mouth daily FUROSEMIDE 21012696551 Active KENDALL Juarez Active LISINOPRIL 20 MG TABS Take one by mouth daily at bedtime LISINOPRIL 79525773940 Active Baltazar Childers MD Active ONETOUCH ULTRA BLUE STRP Test twice a day GLUCO SE BLOOD 57421911338 No Longer Active Baltazar Childers MD Active TRUEPLUS LANCETS 33G MISC Test twice a day LANCET S 76289750000 Active KENDALL Juarez Active TRUEDRAW LANCING DEVICE MISC Test twice a day L ANCET DEVICES 02814793611 Active Baltazar Childers MD Active TRUETRACK TEST STRP Test twice a day GLUCOSE BLOO D 43002726126 Active KENDALL Juarez Active TRUETRACK BLOOD GLUCOSE W/DEVICE KIT Test twice a day BLOOD GLUCOSE MONITORING SUPPL 50059218535 Active Baltazar Childers MD Activ e HYDROCODONE-ACETAMINOPHEN 7.5-325 MG TABS Take 1 tab every 6-8 hour s PRN HYDROCODONE-ACETAMINOPHEN 97288582170 Active Baltazar Childers MD Active NORTRIPTYLINE HCL 50 MG CAPS 1 every night for neuropathy 4 NORTRIPTYLINE HCL 81973880230 Active KENDALL Juarez Acti ve GABAPENTIN 300 MG CAPS 1 three times a day GABAPE NTIN 95488214187 Active Baltazar Childers MD Active GABAPENTIN 300 MG CAPS 1 po qd x 2 days, then 1 po BID x 2 d ays, then 1 po TID GABAPENTIN 88796605251 No Longer Active Baltazar silverman MD Active TRAMADOL HCL 50 MG TABS 1 twice a day as needed for pain TRAMADOL HCL 70977266461 Active Baltazar Childers MD Active NAPROXEN 500 MG TABS 1 tablet by mouth twice daily NAPROXEN 96644298851 No Longer Active Baltazar Childers MD Active PROAIR HFA 108 (90 BASE) MCG/ACT AERS 2 puffs four times a d ay as needed ALBUTEROL SULFATE 55091145788 Active Baltazar Childers MD Active DEPO-TESTOSTERONE 200 MG/ML OIL as directed RUFINO TOSTERONE CYPIONATE 15448341119 No Longer Active Baltazar Childers MD Active LIPITOR 20 MG TABS Take one by mouth daily in evening ATORVASTATIN CALCIUM 81470238074 No Longer Active Baltazar Childers MD Activ e CRESTOR 10 MG TABS 1 by mouth every day R OSUVASTATIN CALCIUM 05742200766 No Longer Active Baltazar Childers MD Activ e PHENTERMINE HCL 37.5 MG TABS Take one by mouth daily 2 PHENTERMINE HCL 38698795111 No Longer Active Baltazar Childers MD Activ e ROBAXIN-750 750 MG TABS Take one by mouth daily ME THOCARBAMOL 53927460931 Active Baltazar Childers MD Active TIZANIDINE HCL 4 MG TABS 1 daily as needed for muscle spasm 2011 TIZANIDINE HCL 73140629246 No Longer Active Dawna Salazar RN Active [id number] 50-325-40 MG TABS 1 four time s a day as needed for heacache [id number] 70308906723 Active Baltazar Childers MD Active SUMATRIPTAN SUCCINATE 100 MG TABS 1 tablet by mouth at onset of migraine as needed SUMATRIPTAN SUCCINATE 73671607475 Active Bella STEPHEN RN Active LORATADINE 10 MG TABS Take one by mouth daily LORATADINE 94861634261 Active Baltazar Childers MD Active OMEPRAZOLE 20 MG CPDR Take one by mouth daily OMEPRAZOLE 82516161501 Active Argentina Lyons Active HYDROXYZINE HCL 25 MG TABS Take one by mouth daily HYDROXYZINE HCL 73448594532 Active Baltazar Childers MD Active GLIPIZIDE 10 MG TABS 1 tablet by mouth twice daily GLIPIZIDE 32696844929 Active KENDALL Juarez Active ALPRAZOLAM 1 MG TABS 1 tablet by mouth daily at bedtime for restles s leg ALPRAZOLAM 09438070693 Active Baltazar Childers MD Active METFORMIN HCL 1000 MG TABS Take one by mouth twice daily METFORMIN HCL 20066399088 Active Baltazar Childers MD Active TIZANIDINE HCL 4 MG TABS 1 daily as needed for muscle spasm 2011 TIZANIDINE HCL 4 MG TABS 464919 TIZANIDINE HCL Inactiv e PHENTERMINE HCL 37.5 MG TABS Take one by mouth daily 2 PHENTERMINE HCL 37.5 MG TABS 205737 PHENTERMINE HCL Inactive CRESTOR 10 MG TABS 1 by mouth every day C RESTOR 10 MG TABS 921581 ROSUVASTATIN CALCIUM Inactive LIPITOR 20 MG TABS Take one by mouth daily in evening LIPITOR 20 MG TABS 754815 ATORVASTATIN CALCIUM Inactive DEPO-TESTOSTERONE 200 MG/ML OIL as directed 8 DEPO-TESTOSTERONE 200 MG/ML OIL 800843 TESTOSTERONE CYPIONATE Inactive NAPROXEN 500 MG TABS 1 tablet by mouth twice daily 201 07/27/22 NAPROXEN 500 MG TABS 707263 NAPROXEN Inactive GABAPENTIN 300 MG CAPS 1 po qd x 2 days, then 1 po BID x 2 d ays, then 1 po TID GABAPENTIN 300 MG CAPS 842381 GABAPENTIN Inact amie ONETOUCH ULTRA BLUE STRP Test twice a day ONETOUCH ULTRA BLUE STRP GLUCOSE BLOOD Inactive NAPROXEN SODIUM 220 MG ORAL TABS 1 three times a day as needed 2 NAPROXEN SODIUM 220 MG ORAL TABS 868125 NAPROXEN SODIUM Inactive TOUJEO SOLOSTAR 300 UNIT/ML [...] Fluarix, Agriflu(>= 18 yo)) Fluzone (>3 yrs.) [[id number]] Influenza, seasonal, inject able Seasonal influenza vaccine, injectable, containing preservative, for > 3 years old (Afluria, FluLaval, Fluzone, Fluvirin, Fluarix, Agriflu(>= 18 yo)) Fluzone (>3 yrs.) [[id number]] Influenza, seasonal, inject able Vital Signs Date [...] pressure, diastolic - 8462-4 74 mm[Hg] BP salmeorn blood pressure, systolic - 8480-6 114 mm[Hg] [...] C - Chemistry sodium, serum 139 mmol/L 814-528 8159/07/07 potassium, serum 4.5 mmol/L 3.5-5.2 chloride, serum [...] 7.9 % 4.3-6.0 sodium, serum 139 mmol/L 483-576 6101/02/04 potassium, serum 5.4 mmol/L 3.5-5.2 chloride, serum [...] Panel - Chemistry sodium, serum 141 mmol/L 062-731 9778/08/08 potassium, serum 4.9 mmol/L 3.5-5.2 chloride, serum [...] mg/dL Encounters Code Encounter Date Provider Facility CPT-07144 Level 4 Est. Patient 11:34:17 CDT Baltazar Childers MD [facility] CPT-79924 Level 3 Est. Patient 16:40:40 CDT Baltazar Childers MD [facility] CPT-80752 Level 4 Est. Patient 10:41:24 CDT Baltazar Childers MD [facility] CPT-78871 Level 4 Est. Patient 16:01:48 CDT Baltazar Childers MD [facility] CPT-10983 Level 4 Est. Patient 16:54:07 [facility] Baltazar Childers MD [facility] CPT-89293 Level 4 Est. Patient 15:42:12 CDT Baltazar Childers MD [facility] CPT-13157 Level 4 Est. Patient 11:29:55 CDT Baltazar Childers MD [facility] CPT-06038 Level 4 Est. Patient 14:15:19 CDT Baltazar Childers MD [facility] CPT-26467 Level 4 Est. Patient 12:20:13 CDT Baltazar Childers MD [facility] CPT-03418 Level 4 Est. Patient 14:52:45 [place] Baltazar Childers MD [facility] CPT-21329 Level 4 Est. Patient 14:18:34 [place] Baltazar Childers MD [facility] CPT-49656 Level 4 Est. Patient 15:18:29 CDT Baltazar Childers MD [facility] CPT-32977 Level 3 Est. Patient 12:45:34 CDT Baltazar Childers MD [facility] CPT-12153 Level 3 Est. Patient 10:10:11 CDT Baltazar Childers MD [facility] CPT-43184 Level 3 Est. Patient 14:07:50 CDT Baltazar Childers MD [facility] CPT-89781 Level 4 Est. Patient 12:26:10 [place] Baltazar Childers MD [facility] CPT-68263 Level 4 Est. Patient 14:45:38 CDT Baltazar Childers MD [facility] CPT-10995 Level 4 New Patient 12:30:48 CDT Baltazar hinton MD [facility] Procedures Code Procedure Name Date Entry Date Standard Desc ription CPT-02446 Renal Panel - LAB USE ONLY 17:39:20 CDT 201 10/31/07 CPT-92502 CBC - LAB USE ONLY 17:39:20 CDT CPT-96762 Venipuncture Draw Fee 17:39:20 CDT CPT-71531 Venipuncture Draw Fee 14:33:30 CDT CPT-77026 Renal Panel - LAB USE ONLY 14:33:30 CDT 201 10/31/07 CPT-92612 CBC - LAB USE ONLY 14:33:29 CDT CPT-55188 Venipuncture Draw Fee 14:50:21 [facility] [place] CPT-98520 Immunization Single Admin 17:35:35 CDT 2014 CPT-51539 Fluzone Quadrivalent preservative free ( >=3yrs.) 17:35:35 CDT CPT-24931 Venipuncture Draw Fee 12:10:27 [facility] [place] CPT-45871 Fluzone Quadrivalent Intramuscular Suspe nsion 0.5 ML 10:49:13 CDT CPT-68706 First Vx Component - Ix admi n via ID IM or jet inj without physician counseling 15:17:19 [place] [place] CPT-79733 Pneumovax 23 15:17:19 [place] CPT-81427 Pneumovax 14:52:45 [place] [place] CPT-82267 Venipuncture Draw Fee 14:06:30 [place] [place] CPT-000 Give Appropriate Flu Vaccine 14:18:34 [place] [place] 2 CPT-26865 Administration single or combination vac cine inc oral 14:46:00 [facility] [place] CPT-45924 Influenza split virus > age 3 14:46:00 [facility] [place] CPT-OV Office Visit 19:13:16 CDT CPT-56414 Zostavax 18:41:56 CDT CPT-50042 Administration single or combination vac cine inc oral 12:56:39 CDT CPT-18830 Zoster Vaccine (Zostavax) 12:56:39 CDT 2012 CPT-44750 Venipuncture Draw Fee 10:58:57 CDT CPT-85685 Sono pelvis non OB uterus ovaries cervix 17:45:04 CDT CPT-31902 Sono retroperitoneal complete kidneys an d bladder 17:14:36 CDT CPT-OV Office Visit 14:59:38 [place] CPT-J1070 Depo Testosterone 100 mg 14:50:13 CDT 03/05 CPT-11850 Abx/Therapy Injection 14:50:13 CDT CPT-23123 Administration single or combination vac cine inc oral 14:34:43 CDT CPT-67368 Influenza split virus > age 3 14:34:43 CDT CPT-J1070 Depo Testosterone 100 mg 17:37:13 CDT 01/11 CPT-69417 Abx/Therapy Injection 17:37:13 CDT CPT-32855 Venipuncture Draw Fee 16:30:13 CDT CPT-29665 Venipuncture Draw Fee 16:29:43 CDT CPT-J1070 Depo Testosterone 100 mg 14:45:38 CDT 01/11
--- OUTSIDE RECORDS SUMMARY | 2019-10-27 13:30 | XMS REPORT | Clinical Summary ---
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 Benign neoplasm of colon PERIPHERAL NEUROPATHY [...] Test twice a day GLUCO SE BLOOD 70080973388 No Longer Active Baltazar Childers MD Active TRUEPLUS LANCETS 33G MISC Test twice a day LANCET S 16433608267 Active Baltazar Childers MD Active TRUEDRAW LANCING DEVICE MISC Test twice a day L ANCET DEVICES 83353454635 Active Baltazar Childers MD Active TRUETRACK TEST STRP Test twice a day GLUCOSE BLOO D 64201171473 Active Baltazar Childers MD Active TRUETRACK BLOOD GLUCOSE W/DEVICE KIT Test twice a day BLOOD GLUCOSE MONITORING SUPPL 02105811546 Active Baltazar Childers MD Activ e HYDROCODONE-ACETAMINOPHEN 7.5-325 MG TABS Take 1 tab every 6-8 hour s PRN HYDROCODONE-ACETAMINOPHEN 09557910225 Active Gato Rae MD Active NORTRIPTYLINE HCL 50 MG CAPS 1 every night for neuropathy 4 NORTRIPTYLINE HCL 66638352565 Active Baltazar Childers MD Acti ve GABAPENTIN 300 MG CAPS 1 three times a day GABAPE NTIN 69684562588 Active Baltazar Childers MD Active GABAPENTIN 300 MG CAPS 1 po qd x 2 days, then 1 po BID x 2 d ays, then 1 po TID GABAPENTIN 30931148201 No Longer Active Baltazar silverman MD Active TRAMADOL HCL 50 MG TABS 1 twice a day as needed for pain TRAMADOL HCL 15034848739 Active Baltazar Childers MD Active NAPROXEN 500 MG TABS 1 tablet by mouth twice daily NAPROXEN 92082282256 No Longer Active Baltazar Childers MD Active PROAIR HFA 108 (90 BASE) MCG/ACT AERS 2 puffs four times a d ay as needed ALBUTEROL SULFATE 83375085339 Active Baltazar Childers MD Active DEPO-TESTOSTERONE 200 MG/ML OIL as directed RUFINO TOSTERONE CYPIONATE 10886894439 No Longer Active Baltazar Childers MD Active LIPITOR 20 MG TABS Take one by mouth daily in evening ATORVASTATIN CALCIUM 49980526462 No Longer Active Baltazar Childers MD Activ e CRESTOR 10 MG TABS 1 by mouth every day R OSUVASTATIN CALCIUM 52186200323 No Longer Active Baltazar Childers MD Activ e PHENTERMINE HCL 37.5 MG TABS Take one by mouth daily 2 PHENTERMINE HCL 73920180176 No Longer Active Baltazar Childers MD Activ e ROBAXIN-750 750 MG TABS Take one by mouth daily ME THOCARBAMOL 84101646878 Active Baltazar Childers MD Active TIZANIDINE HCL 4 MG TABS 1 daily as needed for muscle spasm 2011 TIZANIDINE HCL 12292057423 No Longer Active Dawna Salazar RN Active [id number] 50-325-40 MG TABS 1 four time s a day as needed for heacache [id number]-[id number] 31283694982 Active Baltazar Childers MD Active SUMATRIPTAN SUCCINATE 100 MG TABS 1 tablet by mouth at onset of migraine as needed SUMATRIPTAN SUCCINATE 72482143883 Active Baltazar bynum MD Active LORATADINE 10 MG TABS Take one by mouth daily LORATADINE 54672498814 Active Baltazar Childers MD Active FUROSEMIDE 40 MG TABS Take one by mouth daily FUROSEMIDE 48632478582 Active Baltazar Childers MD Active LISINOPRIL 20 MG TABS Take one by mouth daily at bedtime LISINOPRIL 84358342476 Active Baltazar Childers MD Active OMEPRAZOLE 20 MG CPDR Take one by mouth daily OMEPRAZOLE 60101916755 Active Baltazar Childers MD Active HYDROXYZINE HCL 25 MG TABS Take one by mouth daily HYDROXYZINE HCL 48367226139 Active Dawna Lew Active GLIPIZIDE 10 MG TABS 1 tablet by mouth twice daily GLIPIZIDE 06877983956 Active Baltazar Childers MD Active ALPRAZOLAM 1 MG TABS 1 tablet by mouth daily at bedtime for restles s leg ALPRAZOLAM 76340246420 Active Baltazar Childers MD Active METFORMIN HCL 1000 MG TABS Take one by mouth twice daily METFORMIN HCL 57199543358 Active Baltazar Childers MD Active TIZANIDINE HCL 4 MG TABS 1 daily as needed for muscle spasm 2011 TIZANIDINE HCL 4 MG TABS 574273 TIZANIDINE HCL Inactiv e PHENTERMINE HCL 37.5 MG TABS Take one by mouth daily 2 PHENTERMINE HCL 37.5 MG TABS 618606 PHENTERMINE HCL Inactive CRESTOR 10 MG TABS 1 by mouth every day C RESTOR 10 MG TABS ROSUVASTATIN CALCIUM Inactive LIPITOR 20 MG TABS Take one by mouth daily in evening LIPITOR 20 MG TABS 384445 ATORVASTATIN CALCIUM Inactive DEPO-TESTOSTERONE 200 MG/ML OIL as directed 8 DEPO-TESTOSTERONE 200 MG/ML OIL 139891 TESTOSTERONE CYPIONATE Inactive NAPROXEN 500 MG TABS 1 tablet by mouth twice daily 201 07/27/22 NAPROXEN 500 MG TABS 833921 NAPROXEN Inactive GABAPENTIN 300 MG CAPS 1 po qd x 2 days, then 1 po BID x 2 d ays, then 1 po TID GABAPENTIN 300 MG CAPS 033956 GABAPENTIN Inact amie ONETOUCH ULTRA BLUE STRP Test twice a day ONETOUCH ULTRA BLUE STRP GLUCOSE BLOOD Inactive Immunizations Vaccine Administration Date Value Standard Floyd cription pneumococcal immunization administered Pneumovax 23 [CVX33] pneumococcal polysaccharide vaccine, 23 valent Seasonal influenza vaccine, injectable, containing preservative, for > 3 years old (Afluria, FluLaval, Fluzone, Fluvirin, Fluarix, Agriflu(>= 18 yo)) Fluzone (>3 yrs.) [[id number]] Influenza, seasonal, inject able Seasonal influenza vaccine, injectable, containing preservative, for > 3 years old (Afluria, FluLaval, Fluzone, Fluvirin, Fluarix, Agriflu(>= 18 yo)) Fluzone (>3 yrs.) [[id number]] Influenza, seasonal, inject able Vital Signs Date [...] - Chem istry sodium, serum 140 mmol/L 577-230 5222/05/05 potassium, serum 4.9 mmol/L 3.5-5.2 chloride, serum [...] Panel - Chemistry sodium, serum 139 mmol/L 624-375 8432/01/20 potassium, serum 5.3 mmol/L 3.5-5.2 chloride, serum [...] mg/g mg/g{creat} 0-29 cholesterol, serum 319 mg/dL 288-146 8388/08/21 triglyceride, serum, fasting 546 mg/dL 30-200 HDL cholesterol, serum 39 mg/dL 32-96 LDL cholesterol, serum 167.00 mg/dL 5.00-130.00 hemoglobin A1C, blood, as % of total hemoglobin 7.7 % 4.3-6.0 sodium, serum 138 mmol/L 236-729 5309/08/21 potassium, serum 4.3 mmol/L 3.5-5.2 chloride, serum [...] 0-19 Encounters Code Encounter Date Provider Facility CPT-00875 Level 4 Est. Patient 11:29:55 CDT Baltazar Childers MD [facility] CPT-33377 Level 4 Est. Patient 14:15:19 CDT Baltazar Childers MD [facility] CPT-40364 Level 4 Est. Patient 12:20:13 CDT Baltazar Childers MD [facility] CPT-28739 Level 4 Est. Patient 14:52:45 EMERGENCY DEPT TECH Baltazar Childers MD [facility] CPT-44543 Level 4 Est. Patient 14:18:34 EMERGENCY DEPT TECH Baltazar Childers MD [facility] CPT-60347 Level 4 Est. Patient 15:18:29 CDT Baltazar Childers MD [facility] CPT-54431 Level 3 Est. Patient 12:45:34 CDT Baltazar Childers MD [facility] CPT-60029 Level 3 Est. Patient 10:10:11 CDT Baltazar Childers MD [facility] CPT-01807 Level 3 Est. Patient 14:07:50 CDT Baltazar Childers MD [facility] CPT-60433 Level 4 Est. Patient 12:26:10 EMERGENCY DEPT TECH Baltazar Childers MD [facility] CPT-93385 Level 4 Est. Patient 14:45:38 CDT Baltazar Childers MD [facility] CPT-06160 Level 4 New Patient 12:30:48 CDT Baltazar hinton MD [facility] Procedures Code Procedure Name Date Entry Date Standard Desc ription CPT-42726 Venipuncture Draw Fee 12:10:27 EMERGENCY DEPT TECH CPT-16616 Fluzone Quadrivalent Intramuscular Suspe nsion 0.5 ML 10:49:13 CDT CPT-97985 First Vx Component - Ix admi n via ID IM or jet inj without physician counseling 15:17:19 EMERGENCY DEPT TECH CPT-42569 Pneumovax 23 15:17:19 EMERGENCY DEPT TECH CPT-83340 Pneumovax 14:52:45 EMERGENCY DEPT TECH CPT-48941 Venipuncture Draw Fee 14:06:30 EMERGENCY DEPT TECH CPT-000 Give Appropriate Flu Vaccine 14:18:34 EMERGENCY DEPT TECH 2 CPT-16919 Administration single or combination vac cine inc oral 14:46:00 EMERGENCY DEPT TECH CPT-22316 Influenza split virus > age 3 14:46:00 EMERGENCY DEPT TECH CPT-OV Office Visit 19:13:16 CDT CPT-37068 Zostavax 18:41:56 CDT CPT-94000 Administration single or combination vac cine inc oral 12:56:39 CDT CPT-17420 Zoster Vaccine (Zostavax) 12:56:39 CDT 2012 CPT-69348 Venipuncture Draw Fee 10:58:57 CDT CPT-29128 Sono pelvis non OB uterus ovaries cervix 17:45:04 CDT CPT-60844 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
--- OUTSIDE RECORDS SUMMARY | 2019-10-27 13:30 | XMS REPORT | Clinical Summary ---
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 Benign neoplasm of colon PERIPHERAL [...] three times a day 201 12/03/26 GABAPENTIN [id number] No Longer Active Baltazar Childers MD Activ e LISINOPRIL 20 MG ORAL TABLET 1 tablet by mouth daily at night 2016 LISINOPRIL 28052982337 Active Baltazar Childers MD Active ZITHROMAX Z-ISAIAS 250 MG ORAL TABLET Take two tablets to day and then 1 tablet daily for 4 days AZITHROMYCIN 91800362788 No Longer A ctive Baltazar Childers MD Active LANTUS SOLOSTAR 100 UNIT/ML SUBCUTANEOUS SOLUTION PEN- INJECTOR 30 units SC daily INSULIN GLARGINE 58684354304 Active Baltazar Childers MD Active AMLODIPINE BESYLATE 5 MG ORAL TABLET 1 tab daily for HTN AMLODIPINE BESYLATE 32918664020 Active Baltazar Childers MD Active SYNTHROID 100 MCG ORAL TABLET 1 tablet by mouth daily LEVOTHYROXINE SODIUM 37036377387 Active Baltazar Childers MD Active GLIPIZIDE 10 MG ORAL TABLET take 2 tablets twice daily GLIPIZIDE 42953128226 Active Baltazar Childers MD Active SUCRALFATE 1 GM ORAL TABLET 1 four times a day to coat the stoma ch SUCRALFATE 29679442874 No Longer Active Baltazar Childers MD Active PEN NEEDLES 31G X 6 MM use 1 daily INSULIN PEN NE EDLE 19439546121 Active KENDALL Juarez Active CELINA POWERSOSTNAKITA 300 UNIT/ML SUBCUTANEOUS SOLUTION PEN- INJECTOR 10 units SC daily INSULIN GLARGINE 81672189745 No Longer Active Rola Godinez RMA Active NAPROXEN SODIUM 220 MG ORAL TABLET 1 three times a day as needed NAPROXEN SODIUM 84771361829 No Longer Active Baltazar Childers MD Active ATORVASTATIN CALCIUM 20 MG ORAL TABLET Take 1 tab daily ATORVASTATIN CALCIUM 51418859443 Active Baltazar Childers MD A ctive FUROSEMIDE 40 MG ORAL TABLET Take one by mouth daily FUROSEMIDE 68154665773 Active Jessy Arellano LPN Active LISINOPRIL 20 MG ORAL TABLET Take one by mouth daily at bedtime LISINOPRIL 00427496742 No Longer Active Baltazar Childers MD Active ONETOUCH ULTRA BLUE IN VITRO STRIP Test twice a day 07/11/11 GLUCOSE BLOOD 69509560385 No Longer Active Baltazar Childers MD Acti ve TRUEPLUS LANCETS 33G Test twice a day LANCETS 6801656 3571 Active KENDALL Juarez Active TRUEDRAW LANCING DEVICE Test twice a day LANCET DEVICES 03335237182 Active Baltazar Childers MD Active TRUETRACK TEST IN VITRO STRIP Test twice a day GLUCOSE BLOOD 14464356576 Active KENDALL Juarez Active TRUETRACK BLOOD GLUCOSE w/Device KIT Test twice a day BLOOD GLUCOSE MONITORING SUPPL 28350072136 Active Baltazar Childers MD Activ e HYDROCODONE-ACETAMINOPHEN 7.5-325 MG ORAL TABLET Take 1 tab every 6-8 hours PRN HYDROCODONE-ACETAMINOPHEN 33325851181 Active Baltazar Nickerson MD Active NORTRIPTYLINE HCL 50 MG ORAL CAPSULE 1 every night for neuropathy 2 NORTRIPTYLINE HCL 51874357129 Active Baltazar Childers MD Acti ve GABAPENTIN 300 MG ORAL CAPSULE 1 po qd x 2 days, then 1 po BID x 2 days, then 1 po TID GABAPENTIN 31805790018 No Longer Active Baltazar Childers MD Active TRAMADOL HCL 50 MG ORAL TABLET 1 twice a day as needed for pain 201 07/27/28 TRAMADOL HCL 53818697218 Active Baltazar Childers MD Active NAPROXEN 500 MG ORAL TABLET 1 tablet by mouth twice daily NAPROXEN 37182048529 No Longer Active Baltazar Childers MD Active PROAIR HFA 108 (90 Base) MCG/ACT INHALATION AEROSOL SO LUTION 2 puffs four times a day as needed ALBUTEROL SULFATE 94777185960 Active Paul Childers MD Active DEPO-TESTOSTERONE 200 MG/ML INTRAMUSCULAR SOLUTION as directed TESTOSTERONE CYPIONATE 16625765285 No Longer Active Baltazar Childers MD Active LIPITOR 20 MG ORAL TABLET Take one by mouth daily in evening ATORVASTATIN CALCIUM 57276726286 No Longer Active Baltazar Childers MD Active CRESTOR 10 MG ORAL TABLET 1 by mouth every day ROSUVASTATIN CALCIUM 36971448853 No Longer Active Baltazar Childers MD Active PHENTERMINE HCL 37.5 MG ORAL TABLET Take one by mouth daily PHENTERMINE HCL 86351640509 No Longer Active Baltazar Childers MD Ac tive ROBAXIN-750 750 MG ORAL TABLET Take one by mouth daily METHOCARBAMOL 35144911102 Active Baltazar Childers MD Active TIZANIDINE HCL 4 MG ORAL TABLET 1 daily as needed for muscle spa sm TIZANIDINE HCL 67445224891 No Longer Active Dawna Salazar RN Active [id number]-CZSPMEWO 50-325-40 MG ORAL TABLET 1 fo ur times a day as needed for heacache [id number] 95950914743 Active Baltazar Childers MD Active SUMATRIPTAN SUCCINATE 100 MG ORAL TABLET 1 tablet by m outh at onset of migraine as needed SUMATRIPTAN SUCCINATE 73107777038 Active Bertha Vazquez LPN Active LORATADINE 10 MG ORAL TABLET Take one by mouth daily LORATADINE 76281218548 Active Baltazar Childers MD Active OMEPRAZOLE 20 MG ORAL CAPSULE DELAYED RELEASE Take one by mouth jostin ly OMEPRAZOLE 47683837914 Active Baltazar Childers MD Active HYDROXYZINE HCL 25 MG ORAL TABLET Take one by mouth daily HYDROXYZINE HCL 76647432830 Active Baltazar Childers MD Active ALPRAZOLAM 1 MG ORAL TABLET 1 [facility] 22316103031 Active Baltazar Childers MD Active METFORMIN HCL 1000 MG ORAL TABLET Take one by mouth twice daily METFORMIN HCL 93154589886 Active Baltazar Childers MD Active TIZANIDINE HCL 4 MG ORAL TABLET 1 daily as needed for muscle spa sm TIZANIDINE HCL 4 MG ORAL TABLET 918109 TIZANIDINE HCL Inactive PHENTERMINE HCL 37.5 MG ORAL TABLET Take one by mouth daily PHENTERMINE HCL 37.5 MG ORAL TABLET 164383 PHENTERMINE HCL Inac tive CRESTOR 10 MG ORAL TABLET 1 by mouth every day CRESTOR 10 MG ORAL TABLET 981625 ROSUVASTATIN CALCIUM Inactive LIPITOR 20 MG ORAL TABLET Take one by mouth daily in evening LIPITOR 20 MG ORAL TABLET 789187 ATORVASTATIN CALCIUM Inactive DEPO-TESTOSTERONE 200 MG/ML INTRAMUSCULAR SOLUTION as directed DEPO-TESTOSTERONE 200 MG/ML INTRAMUSCULAR SOLUTION 940716 RUFINO TOSTERONE CYPIONATE Inactive NAPROXEN 500 MG ORAL TABLET 1 tablet by mouth twice daily NAPROXEN 500 MG ORAL TABLET 604044 NAPROXEN Inactive GABAPENTIN 300 MG ORAL CAPSULE 1 po qd x 2 days, then 1 po BID x 2 days, then 1 po TID GABAPENTIN 300 MG ORAL CAPSULE 512011 GABAP ENTIN Inactive ONETOUCH ULTRA BLUE IN VITRO STRIP Test twice a day 07/11/11 ONETOUCH ULTRA BLUE IN VITRO STRIP GLUCOSE BLOOD Inact amie NAPROXEN SODIUM 220 MG ORAL TABLET 1 three times a day as needed NAPROXEN SODIUM 220 MG ORAL TABLET 751888 NAPROXEN SODI UM Inactive TOUJEO SOLOSTAR 300 UNIT/ML SUBCUTANEOUS SOLUTION PEN- INJECTOR 10 units SC daily TOUJEO SOLOSTAR 300 UNIT/ML SUBCUTANEOUS SOLUTION PEN-INJECTOR INSULIN GLARGINE Inactive SUCRALFATE 1 GM ORAL TABLET 1 four times a day to coat the stoma ch SUCRALFATE 1 GM ORAL TABLET 293262 SUCRALFATE Inac tive GABAPENTIN 300 MG ORAL CAPSULE 1 three times a day 201 12/03/26 GABAPENTIN 300 MG ORAL CAPSULE 973963 GABAPENTIN Inactive ZITHROMAX Z-ISAIAS 250 MG ORAL TABLET Take two tablets to day and then 1 tablet daily for 4 days ZITHROMAX Z-ISAIAS 250 MG ORAL TAB LET 358454 AZITHROMYCIN Inactive Immunizations Vaccine Administration Date Value Standard Floyd cription pneumococcal immunization administered Pneumovax 23 [CVX33] pneumococcal polysaccharide vaccine, 23 valent Seasonal influenza vaccine, injectable, containing preservative, for > 3 years old (Afluria, FluLaval, Fluzone, Fluvirin, Fluarix, Agriflu(>= 18 yo)) Fluzone (>3 yrs.) [[id number]] Influenza, seasonal, inject able Seasonal influenza vaccine, injectable, containing preservative, for > 3 years old (Afluria, FluLaval, Fluzone, Fluvirin, Fluarix, Agriflu(>= 18 yo)) Fluzone (>3 yrs.) [ZFP650] Influenza, seasonal, inject able Vital Signs Date [...] - Chem istry sodium, serum 139 mmol/L 535-351 1425/10/03 potassium, serum 4.7 mmol/L 3.5-5.2 chloride, serum 98 mmol/L 98-107 carbon dioxide, venous blood 28.7 mmol/L 21.0-32 .0 blood glucose 218 mg/dL 65-110 calcium, serum 9.8 mg/dL 8.5-10.1 urea nitrogen, blood 19 mg/dL 7-18 creatinine, serum 1.68 mg/dL 0.60-1.30 Lab Report: Basic Metabolic Panel, HGBA1 C - Chemistry sodium, serum 143 mmol/L 183-119 4658/06/19 potassium, serum 5.9 mmol/L 3.5-5.2 chloride, serum 105 mmol/L 98-107 carbon dioxide, venous blood 30.2 mmol/L 21.0-32 .0 blood glucose 189 mg/dL 65-110 calcium, serum 9.7 mg/dL 8.5-10.1 urea nitrogen, blood 37 mg/dL 7-18 creatinine, serum 2.11 mg/dL 0.55-1.30 hemoglobin A1C, blood, as % of total hemoglobin 8.2 % 4.3-6.0 Lab Report: CBC, Renal Panel - Chemistry sodium, serum 142 mmol/L 660-911 2098/08/11 potassium, serum 4.8 mmol/L 3.5-5.2 chloride, serum [...] (L) - Chemistry cholesterol, serum 209 mg/dL 614-452 6056/12/27 triglyceride, serum, fasting 329 mg/dL 30-200 HDL cholesterol, serum 56 mg/dL 32-60 LDL cholesterol, serum 87 mg/dL 0-130 TSH 3.60 m[iU]/mL 0.36-3.74 Encounters Code Encounter Date Provider Facility CPT-32995 Level 4 Est. Patient 16:21:19 ENFORCEMENT MANAGER Baltazar Childers MD [facility] CPT-04217 Level 4 Est. Patient 12:25:11 CDT Baltazar Childers MD [facility]-56331 Level 4 Est. Patient 14:22:31 CDT Baltazar Childers MD [facility]-06578 Level 4 Est. Patient 15:44:38 CDT Shonna Elena CASTELLANOS [facility]-28803 Level 4 Est. Patient 11:34:17 CDT Baltazar Childers MD [facility]-91668 Level 3 Est. Patient 16:40:40 CDT Baltazar Childers MD [facility]-51305 Level 4 Est. Patient 10:41:24 CDT Baltazar Childers MD [facility]-03760 Level 4 Est. Patient 16:01:48 CDT Baltazar Childers MD [facility]-21508 Level 4 Est. Patient 16:54:07 ENFORCEMENT MANAGER Baltazar Childers MD [facility]-38635 Level 4 Est. Patient 15:42:12 CDT Baltazar Childers MD [facility] CPT-21174 Level 4 Est. Patient 11:29:55 CDT Baltazar Childers MD [facility] [place] Level 4 Est. Patient 14:15:19 CDT Baltazar Childers MD [facility] [facility] [place]-[address]561 Level 4 Est. Patient 12:20:13 CDT Baltazar Childers MD [facility] CPT-04281 Level 4 Est. Patient 14:52:45 ENFORCEMENT MANAGER Baltazar Childers MD [facility] CPT-07192 Level 4 Est. Patient 14:18:34 ENFORCEMENT MANAGER Baltazar Childers MD [facility] [place]-70146 Level 4 Est. Patient 15:18:29 CDT Baltazar Childers MD [facility] [place]-[address]51 Level 3 Est. Patient 12:45:34 CDT Baltazar Childers MD [facility] CPT-86544 Level 3 Est. Patient 10:10:11 CDT Baltazar Childers MD [facility] CPT-58448 Level 3 Est. Patient 14:07:50 CDT Baltazar Childers MD [facility] CPT-32388 Level 4 Est. Patient 12:26:10 ENFORCEMENT MANAGER Baltazar Childers MD [facility] CPT-07481 Level 4 Est. Patient 14:45:38 CDT Baltazar Childers MD [facility] CPT-57931 Level 4 New Patient 12:30:48 CDT Baltazar hinton MD [facility] Procedures Code Procedure Name Date Entry Date Standard Desc ription CPT-61923 First Vx - Ix admin via ID I M or jet injects without counseling by physician 13:08:59 CDT CPT-37839 Fluzone Quadrivalent Intramuscular Suspe nsion 0.5 ML 13:08:59 CDT CPT-08073 Venipuncture Draw Fee 12:04:12 CDT CPT-35729 Lipid - LAB USE ONLY 17:39:15 ENFORCEMENT MANAGER 9 CPT-04531 HGBA1C - LAB USE ONLY 17:39:15 ENFORCEMENT MANAGER CPT-79574 CMP - LAB USE ONLY 17:39:14 ENFORCEMENT MANAGER CPT-10193 Venipuncture Draw Fee 17:39:14 ENFORCEMENT MANAGER CPT-39189 First Vx - Ix admin via ID I M or jet injects without counseling by physician 16:55:17 ENFORCEMENT MANAGER CPT-83932 Fluzone Quadrivalent Intramuscular Suspe nsion 0.5 ML 16:55:17 ENFORCEMENT MANAGER CPT-94439 Renal Panel - LAB USE ONLY 17:39:20 CDT 201 10/31/07 CPT-31706 CBC - LAB USE ONLY 17:39:20 CDT CPT-58746 Venipuncture Draw Fee 17:39:20 CDT CPT-22759 Venipuncture Draw Fee 14:33:30 CDT CPT-40943 Renal Panel - LAB USE ONLY 14:33:30 CDT 201 10/31/07 CPT-12704 CBC - LAB USE ONLY 14:33:29 CDT CPT-94395 Venipuncture Draw Fee 14:50:21 ENFORCEMENT MANAGER CPT-38300 Immunization Single Admin 17:35:35 CDT 2014 CPT-21857 Fluzone Quadrivalent preservative free ( >=3yrs.) 17:35:35 CDT CPT-97173 Venipuncture Draw Fee 12:10:27 ENFORCEMENT MANAGER CPT-81251 Fluzone Quadrivalent Intramuscular Suspe nsion 0.5 ML 10:49:13 CDT CPT-27867 First Vx Component - Ix admi n via ID IM or jet inj without physician counseling 15:17:19 ENFORCEMENT MANAGER CPT-15721 Pneumovax 23 15:17:19 ENFORCEMENT MANAGER CPT-80908 Pneumovax 14:52:45 ENFORCEMENT MANAGER CPT-56432 Venipuncture Draw Fee 14:06:30 ENFORCEMENT MANAGER CPT-000 Give Appropriate Flu Vaccine 14:18:34 ENFORCEMENT MANAGER 2 CPT-25080 Administration single or combination vac cine inc oral 14:46:00 ENFORCEMENT MANAGER CPT-75499 Influenza split virus > age 3 14:46:00 ENFORCEMENT MANAGER CPT-OV Office Visit 19:13:16 CDT CPT-89643 Zostavax 18:41:56 CDT CPT-39256 Administration single or combination vac cine inc oral 12:56:39 CDT CPT-00187 Zoster Vaccine (Zostavax) 12:56:39 CDT 2012 CPT-40280 Venipuncture Draw Fee 10:58:57 CDT CPT-82292 Sono pelvis non OB uterus ovaries cervix 17:45:04 CDT CPT-97698 Sono retroperitoneal complete kidneys an d bladder 17:14:36 CDT CPT-OV Office Visit 14:59:38 ENFORCEMENT MANAGER CPT-J1070 Depo Testosterone 100 mg 14:50:13 CDT 03/05 CPT-95030 Abx/Therapy Injection 14:50:13 CDT CPT-98142 Administration single or combination vac cine inc oral 14:34:43 CDT CPT-32573 Influenza split virus > age 3 14:34:43 CDT CPT-J1070 Depo Testosterone 100 mg 17:37:13 CDT 01/11 CPT-17137 Abx/Therapy Injection 17:37:13 CDT CPT-29344 Venipuncture Draw Fee 16:30:13 CDT CPT-10999 Venipuncture Draw Fee 16:29:43 CDT CPT-J1070 Depo Testosterone 100 mg 14:45:38 CDT 01/11
--- OUTSIDE RECORDS SUMMARY | 2019-10-27 13:30 | XMS REPORT | Clinical Summary ---
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 Benign neoplasm of colon PERIPHERAL [...] uterus, unspecified WELL WOMAN EXAMINATION V72.31 Active Gayatrhi aviles MD Routine gynecological examination Health screening [...] 1 tab daily for HTN AMLODIPINE BESYLATE 25224710611 Active KENDALL Juarez Active SYNTHROID 0.1 MG TAB 1 tablet by mouth daily LE VOTHYROXINE SODIUM 26629439309 Active Shonna Parker APRN Active GLIPIZIDE 10 MG TAB take 2 tablets twice daily GLIPIZIDE 34096924915 Active Baltazar Childers MD Active SUCRALFATE 1 GM TABS 1 four times a day to coat the stomach 2015 SUCRALFATE 77384580066 No Longer Active Baltazar Childers MD Active PEN NEEDLES 31G X 6 MM MISC use 1 daily INSULIN PEN NEEDLE 47860783356 Active Gato Rae MD Active TOUJEO SOLOSTAR 300 UNIT/ML SC SOPN 10 units SC daily INSULIN GLARGINE 36795040056 No Longer Active [place] ARGUETA Active LANTUS SOLOSTAR 100 UNIT/ML SC SOPN 10 units SC daily INSULIN GLARGINE 08672649124 Active KENDALL Juarez Active NAPROXEN SODIUM 220 MG ORAL TABS 1 three times a day as needed 2 NAPROXEN SODIUM 71890744526 No Longer Active Baltazar Childers MD Active ATORVASTATIN CALCIUM 20 MG ORAL TABS Take 1 tab daily ATORVASTATIN CALCIUM 14010475791 Active KENDALL Juarez Active FUROSEMIDE 40 MG TABS Take one by mouth daily FUROSEMIDE 31035684209 Active Baltazar Childers MD Active LISINOPRIL 20 MG TABS Take one by mouth daily at bedtime LISINOPRIL 12527695192 No Longer Active Baltazar Childers MD Active ONETOUCH ULTRA BLUE STRP Test twice a day GLUCO SE BLOOD 72426995399 No Longer Active Baltazar Childers MD Active TRUEPLUS LANCETS 33G MISC Test twice a day LANCET S 46549504185 Active KENDALL Juarez Active TRUEDRAW LANCING DEVICE MISC Test twice a day L ANCET DEVICES 01455843846 Active Baltazar Childers MD Active TRUETRACK TEST STRP Test twice a day GLUCOSE BLOO D 27348268887 Active KENDALL Juarez Active TRUETRACK BLOOD GLUCOSE W/DEVICE KIT Test twice a day BLOOD GLUCOSE MONITORING SUPPL 41793616439 Active Baltazar Childers MD Activ e HYDROCODONE-ACETAMINOPHEN 7.5-325 MG TABS Take 1 tab every 6-8 hour s PRN HYDROCODONE-ACETAMINOPHEN 46546347248 Active Baltazar Childers MD Active NORTRIPTYLINE HCL 50 MG CAPS 1 every night for neuropathy 4 NORTRIPTYLINE HCL 14908791601 Active Baltazar Childers MD Acti ve GABAPENTIN 300 MG CAPS 1 three times a day GABAPE NTIN 49150390650 Active Baltazar Childers MD Active GABAPENTIN 300 MG CAPS 1 po qd x 2 days, then 1 po BID x 2 d ays, then 1 po TID GABAPENTIN 08087145294 No Longer Active Baltazar silverman MD Active TRAMADOL HCL 50 MG TABS 1 twice a day as needed for pain TRAMADOL HCL 24209814297 Active Baltazar Childers MD Active NAPROXEN 500 MG TABS 1 tablet by mouth twice daily NAPROXEN 99942864537 No Longer Active Baltazar Childers MD Active PROAIR HFA 108 (90 BASE) MCG/ACT AERS 2 puffs four times a d ay as needed ALBUTEROL SULFATE 18272351630 Active Baltazar Childers MD Active DEPO-TESTOSTERONE 200 MG/ML OIL as directed RUFINO TOSTERONE CYPIONATE 89045908404 No Longer Active Baltazar Childers MD Active LIPITOR 20 MG TABS Take one by mouth daily in evening ATORVASTATIN CALCIUM 25169347283 No Longer Active Baltazar Childers MD Activ e CRESTOR 10 MG TABS 1 by mouth every day R OSUVASTATIN CALCIUM 78330875210 No Longer Active Baltazar Childers MD Activ e PHENTERMINE HCL 37.5 MG TABS Take one by mouth daily 2 PHENTERMINE HCL 86441754255 No Longer Active Baltazar Childers MD Activ e ROBAXIN-750 750 MG TABS Take one by mouth daily ME THOCARBAMOL 95799187076 Active Baltazar Childers MD Active TIZANIDINE HCL 4 MG TABS 1 daily as needed for muscle spasm 2011 TIZANIDINE HCL 56285112056 No Longer Active Dawna Salazar RN Active [id number] 50-325-40 MG TABS 1 four time s a day as needed for heacache [id number] 21806282409 Active KENDALL Juarez Active SUMATRIPTAN SUCCINATE 100 MG TABS 1 tablet by mouth at onset of migraine as needed SUMATRIPTAN SUCCINATE 56613159685 Active KENDALL Juarez Active LORATADINE 10 MG TABS Take one by mouth daily LORATADINE 61329831287 Active Beth KENDALL Carr Active OMEPRAZOLE 20 MG CPDR Take one by mouth daily OMEPRAZOLE 04961868690 Active Baltazar Childers MD Active HYDROXYZINE HCL 25 MG TABS Take one by mouth daily HYDROXYZINE HCL 06849925130 Active Baltazar Childers MD Active ALPRAZOLAM 1 MG TABS 1 tablet by mouth daily at bedtime for restles s leg ALPRAZOLAM 14338938128 Active Baltazar Childers MD Active METFORMIN HCL 1000 MG TABS Take one by mouth twice daily METFORMIN HCL 31018423136 Active Baltazar Childers MD Active TIZANIDINE HCL 4 MG TABS 1 daily as needed for muscle spasm 2011 TIZANIDINE HCL 4 MG TABS 806333 TIZANIDINE HCL Inactiv e PHENTERMINE HCL 37.5 MG TABS Take one by mouth daily 2 PHENTERMINE HCL 37.5 MG TABS 453872 PHENTERMINE HCL Inactive CRESTOR 10 MG TABS 1 by mouth every day C RESTOR 10 MG TABS 651312 ROSUVASTATIN CALCIUM Inactive LIPITOR 20 MG TABS Take one by mouth daily in evening LIPITOR 20 MG TABS 552763 ATORVASTATIN CALCIUM Inactive DEPO-TESTOSTERONE 200 MG/ML OIL as directed 8 DEPO-TESTOSTERONE 200 MG/ML OIL 710220 TESTOSTERONE CYPIONATE Inactive NAPROXEN 500 MG TABS 1 tablet by mouth twice daily 201 07/27/22 NAPROXEN 500 MG TABS 076289 NAPROXEN Inactive GABAPENTIN 300 MG CAPS 1 po qd x 2 days, then 1 po BID x 2 d ays, then 1 po TID GABAPENTIN 300 MG CAPS 173296 GABAPENTIN Inact amie ONETOUCH ULTRA BLUE STRP Test twice a day ONETOUCH ULTRA BLUE STRP GLUCOSE BLOOD Inactive NAPROXEN SODIUM 220 MG ORAL TABS 1 three times a day as needed 2 NAPROXEN SODIUM 220 MG ORAL TABS 197427 NAPROXEN SODIUM Inactive TOUJEO SOLOSTAR 300 UNIT/ML SC SOPN 10 units SC daily TOUJEO SOLOSTAR 300 UNIT/ML SC SOPN INSULIN GLARGINE Inac tive SUCRALFATE 1 GM TABS 1 four times a day to coat the stomach 2015 SUCRALFATE 1 GM TABS 524039 SUCRALFATE Inactive Immunizations Vaccine Administration Date Value Standard Floyd cription pneumococcal immunization administered Pneumovax 23 [CVX33] pneumococcal polysaccharide vaccine, 23 valent Seasonal influenza vaccine, injectable, containing preservative, for > 3 years old (Afluria, FluLaval, Fluzone, Fluvirin, Fluarix, Agriflu(>= 18 yo)) Fluzone (>3 yrs.) [[id number]] Influenza, seasonal, inject able Seasonal influenza vaccine, injectable, containing preservative, for > 3 years old (Afluria, FluLaval, Fluzone, Fluvirin, Fluarix, Agriflu(>= 18 yo)) Fluzone (>3 yrs.) [[id number]] Influenza, seasonal, inject able Vital Signs Date [...] C - Chemistry sodium, serum 143 mmol/L 090-202 4586/06/19 potassium, serum 5.9 mmol/L 3.5-5.2 chloride, serum 105 mmol/L 98-107 carbon dioxide, venous blood 30.2 mmol/L 21.0-32 .0 blood glucose 189 mg/dL 65-110 calcium, serum 9.7 mg/dL 8.5-10.1 urea nitrogen, blood 37 mg/dL 7-18 creatinine, serum 2.11 mg/dL 0.55-1.30 hemoglobin A1C, blood, as % of total hemoglobin 8.2 % 4.3-6.0 Lab Report: CBC, Renal Panel - Chemistry sodium, serum 142 mmol/L 591-562 0374/08/11 potassium, serum 4.8 mmol/L 3.5-5.2 chloride, serum [...] Panel, Lipid Panel - Chemistry chloride, serum 101 mmol/L 98-107 potassium, serum 4.9 mmol/L 3.5-5.2 carbon dioxide, venous blood 32.5 mmol/L 21.0-32 .0 sodium, serum 143 mmol/L 104-782 6330/12/19 blood glucose 129 mg/dL 65-110 urea nitrogen, blood 18 mg/dL 7-18 creatinine, serum 1.79 mg/dL 0.55-1.30 alanine aminotransferase (SGPT), serum 34 U/L 12-78 aspartate aminotransferase (SGOT), serum 26 U/L 15-37 calcium, serum 8.9 mg/dL 8.5-10.1 bilirubin, serum, total 0.30 mg/dL 0.00-1.00 cholesterol, serum 214 mg/dL 660-301 3972/12/19 triglyceride, serum, fasting 351 mg/dL 30-200 HDL [...] 4.3-6.0 Encounters Code Encounter Date Provider Facility CPT-83646 Level 4 Est. Patient 14:22:31 CDT Baltazar Childers MD [facility] CPT-34383 Level 4 Est. Patient 15:44:38 [facility] Level 4 Est. Patient 11:34:17 CDT Baltazar Childers MD [facility] CPT-49138 Level 3 Est. Patient 16:40:40 CDT Baltazar Childers MD [facility] CPT-07707 Level 4 Est. Patient 10:41:24 CDT Baltazar Childers MD [facility] CPT-27334 Level 4 Est. Patient 16:01:48 CDT Baltazar Childers MD [facility] CPT-12368 Level 4 Est. 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 Patient 15:42:12 CDT Baltazar Childers MD [facility] CPT-47213 Level 4 Est. Patient 11:29:55 CDT Baltazar Childers MD [facility] CPT-93292 Level 4 Est. Patient 14:15:19 CDT Baltazar Childers MD [facility] CPT-28519 Level 4 Est. Patient 12:20:13 CDT Baltazar Childers MD [facility] CPT-16231 Level 4 Est. 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 Patient 14:18:34 WOOD PILE DRIVER OPERATOR Baltazar Childers MD [facility] CPT-79376 Level 4 Est. Patient 15:18:29 CDT Baltazar Childers MD [facility] CPT-77796 Level 3 Est. Patient 12:45:34 CDT Baltazar Childers MD [facility] CPT-57452 Level 3 Est. Patient 10:10:11 CDT Baltazar Childers MD [facility] CPT-28109 Level 3 Est. Patient 14:07:50 CDT Baltazar Childers MD [facility] CPT-39827 Level 4 Est. Patient 12:26:10 WOOD PILE DRIVER OPERATOR Baltazar Childers MD [facility] CPT-75507 Level 4 Est. Patient 14:45:38 CDT Baltazar Childers MD [facility] CPT-75838 Level 4 New Patient 12:30:48 CDT Baltazar hinton MD [facility] Procedures Code Procedure Name Date Entry Date Standard Desc ription CPT-65000 Venipuncture Draw Fee 12:04:12 CDT CPT-21162 Lipid - LAB USE ONLY 17:39:15 WOOD PILE DRIVER OPERATOR 9 CPT-58424 HGBA1C - LAB USE ONLY 17:39:15 WOOD PILE DRIVER OPERATOR CPT-21149 CMP - LAB USE ONLY 17:39:14 WOOD PILE DRIVER OPERATOR CPT-75161 Venipuncture Draw Fee 17:39:14 WOOD PILE DRIVER OPERATOR CPT-17458 First Vx - Ix admin via ID I M or jet injects without counseling by physician 16:55:17 WOOD PILE DRIVER OPERATOR CPT-04590 Fluzone Quadrivalent Intramuscular Suspe nsion 0.5 ML 16:55:17 WOOD PILE DRIVER OPERATOR CPT-20440 Renal Panel - LAB USE ONLY 17:39:20 CDT 201 10/31/07 CPT-77566 CBC - LAB USE ONLY 17:39:20 CDT CPT-94059 Venipuncture Draw Fee 17:39:20 CDT CPT-87423 Venipuncture Draw Fee 14:33:30 CDT CPT-34557 Renal Panel - LAB USE ONLY 14:33:30 CDT 201 10/31/07 CPT-08609 CBC - LAB USE ONLY 14:33:29 CDT CPT-30354 Venipuncture Draw Fee 14:50:21 WOOD PILE DRIVER OPERATOR CPT-36492 Immunization Single Admin 17:35:35 CDT 2014 CPT-87944 Fluzone Quadrivalent preservative free ( >=3yrs.) 17:35:35 CDT CPT-54341 Venipuncture Draw Fee 12:10:27 WOOD PILE DRIVER OPERATOR CPT-87835 Fluzone Quadrivalent Intramuscular Suspe nsion 0.5 ML 10:49:13 CDT CPT-56334 First Vx Component - Ix admi n via ID IM or jet inj without physician counseling 15:17:19 WOOD PILE DRIVER OPERATOR CPT-10183 Pneumovax 23 15:17:19 WOOD PILE DRIVER OPERATOR CPT-07320 Pneumovax 14:52:45 WOOD PILE DRIVER OPERATOR CPT-45414 Venipuncture Draw Fee 14:06:30 WOOD PILE DRIVER OPERATOR CPT-000 Give Appropriate Flu Vaccine 14:18:34 WOOD PILE DRIVER OPERATOR 2 CPT-07267 Administration single or combination vac cine inc oral 14:46:00 WOOD PILE DRIVER OPERATOR CPT-60875 Influenza split virus > age 3 14:46:00 WOOD PILE DRIVER OPERATOR CPT-OV Office Visit 19:13:16 CDT CPT-68539 Zostavax 18:41:56 CDT CPT-13867 Administration single or combination vac cine inc oral 12:56:39 CDT CPT-10417 Zoster Vaccine (Zostavax) 12:56:39 CDT 2012 CPT-94898 Venipuncture Draw Fee 10:58:57 CDT CPT-01122 Sono pelvis non OB uterus ovaries cervix 17:45:04 CDT CPT-46352 Sono retroperitoneal complete kidneys an d bladder 17:14:36 CDT CPT-OV Office Visit 14:59:38 WOOD PILE DRIVER OPERATOR CPT-J1070 Depo Testosterone 100 mg 14:50:13 CDT 03/05 CPT-70527 Abx/Therapy Injection 14:50:13 CDT CPT-70572 Administration single or combination vac cine inc oral 14:34:43 CDT CPT-10137 Influenza split virus > age 3 14:34:43 CDT CPT-J1070 Depo Testosterone 100 mg 17:37:13 CDT 01/11 CPT-48445 Abx/Therapy Injection 17:37:13 CDT CPT-03918 Venipuncture Draw Fee 16:30:13 CDT CPT-39468 Venipuncture Draw Fee 16:29:43 CDT CPT-J1070 Depo Testosterone 100 mg 14:45:38 CDT 01/11
--- OUTSIDE RECORDS SUMMARY | 2019-10-27 13:31 | XMS REPORT | Clinical Summary ---
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 Benign neoplasm of colon PERIPHERAL NEUROPATHY [...] ronary atherosclerosis of unspecified type of vessel, match-e-be-nash-she-wish band or graft OTH NONSPC ABN FINDNG RAD&OTH [...] a day to coat the stomach SUCRALFATE 05514604501 Active Baltazar Childers MD Active PEN NEEDLES 31G X 6 MM MISC use 1 daily INSULIN PEN NEEDLE 58604513011 Active Martita Herbert RMA Active TOUJEO SOLOSTAR 300 UNIT/ML SC SOPN 10 units SC daily INSULIN GLARGINE 46574985781 No Longer Active Martita Herbert RMA Active LANTUS SOLOSTAR 100 UNIT/ML SC SOPN 10 units SC daily INSULIN GLARGINE 25694471534 Active KENDALL Juarez Active NAPROXEN SODIUM 220 MG ORAL TABS 1 three times a day as needed 2 NAPROXEN SODIUM 49112168319 No Longer Active Baltazar Childers MD Active ATORVASTATIN CALCIUM 20 MG ORAL TABS Take 1 tab daily ATORVASTATIN CALCIUM 44875802905 Active Baltazar Childers MD Active FUROSEMIDE 40 MG TABS Take one by mouth daily FUROSEMIDE 39668615835 Active Baltazar Childers MD Active LISINOPRIL 20 MG TABS Take one by mouth daily at bedtime LISINOPRIL 18996210557 Active Baltazar Childers MD Active ONETOUCH ULTRA BLUE STRP Test twice a day GLUCO SE BLOOD 48512378285 No Longer Active Baltazar Childers MD Active TRUEPLUS LANCETS 33G MISC Test twice a day LANCET S 98347099592 Active KENDALL Juarez Active TRUEDRAW LANCING DEVICE MISC Test twice a day L ANCET DEVICES 71545249166 Active Baltazar Childers MD Active TRUETRACK TEST STRP Test twice a day GLUCOSE BLOO D 01093163642 Active KENDALL Juarez Active TRUETRACK BLOOD GLUCOSE W/DEVICE KIT Test twice a day BLOOD GLUCOSE MONITORING SUPPL 34353001352 Active Baltazar Childers MD Activ e HYDROCODONE-ACETAMINOPHEN 7.5-325 MG TABS Take 1 tab every 6-8 hour s PRN HYDROCODONE-ACETAMINOPHEN 26177270951 Active Baltazar Childers MD Active NORTRIPTYLINE HCL 50 MG CAPS 1 every night for neuropathy 4 NORTRIPTYLINE HCL 80015407462 Active KENDALL Juarez Acti ve GABAPENTIN 300 MG CAPS 1 three times a day GABAPE NTIN 58681942386 Active Baltazar Childers MD Active GABAPENTIN 300 MG CAPS 1 po qd x 2 days, then 1 po BID x 2 d ays, then 1 po TID GABAPENTIN 58139201287 No Longer Active Baltazar silverman MD Active TRAMADOL HCL 50 MG TABS 1 twice a day as needed for pain TRAMADOL HCL 26164732918 Active Baltazar Childers MD Active NAPROXEN 500 MG TABS 1 tablet by mouth twice daily NAPROXEN 48353878243 No Longer Active Baltazar Childers MD Active PROAIR HFA 108 (90 BASE) MCG/ACT AERS 2 puffs four times a d ay as needed ALBUTEROL SULFATE 69342440731 Active Baltazar Childers MD Active DEPO-TESTOSTERONE 200 MG/ML OIL as directed RUFINO TOSTERONE CYPIONATE 39448545533 No Longer Active Baltazar Childers MD Active LIPITOR 20 MG TABS Take one by mouth daily in evening ATORVASTATIN CALCIUM 90175869554 No Longer Active Baltazar Childers MD Activ e CRESTOR 10 MG TABS 1 by mouth every day R OSUVASTATIN CALCIUM 91030421031 No Longer Active Baltazar Childers MD Activ e PHENTERMINE HCL 37.5 MG TABS Take one by mouth daily 2 PHENTERMINE HCL 64695136753 No Longer Active Baltazar Childers MD Activ e ROBAXIN-750 750 MG TABS Take one by mouth daily ME THOCARBAMOL 55202385068 Active Baltazar Childers MD Active TIZANIDINE HCL 4 MG TABS 1 daily as needed for muscle spasm 2011 TIZANIDINE HCL 98490880265 No Longer Active Dawna Salazar RN Active [id number]-[id number]-DXWZTYBH 50-325-40 MG TABS 1 four time s a day as needed for heacache TPZEWEIEDA-WFFU-EUHNOBCO 80303090834 Active Baltazar Childers MD Active SUMATRIPTAN SUCCINATE 100 MG TABS 1 tablet by mouth at onset of migraine as needed SUMATRIPTAN SUCCINATE 92158579413 Active Bella STEPHEN RN Active LORATADINE 10 MG TABS Take one by mouth daily LORATADINE 69050493676 Active Baltazar Childers MD Active OMEPRAZOLE 20 MG CPDR Take one by mouth daily OMEPRAZOLE 49120972993 Active Crystal Lyons Active HYDROXYZINE HCL 25 MG TABS Take one by mouth daily HYDROXYZINE HCL 28144745753 Active Baltazar Childers MD Active GLIPIZIDE 10 MG TABS 1 tablet by mouth twice daily GLIPIZIDE 44488502462 Active Baltazar Childers MD Active ALPRAZOLAM 1 MG TABS 1 tablet by mouth daily at bedtime for restles s leg ALPRAZOLAM 10241444876 Active Baltazar Childers MD Active METFORMIN HCL 1000 MG TABS Take one by mouth twice daily METFORMIN HCL 84871062035 Active Baltazar Childers MD Active TIZANIDINE HCL 4 MG TABS 1 daily as needed for muscle spasm 2011 TIZANIDINE HCL 4 MG TABS 882242 TIZANIDINE HCL Inactiv e PHENTERMINE HCL 37.5 MG TABS Take one by mouth daily 2 PHENTERMINE HCL 37.5 MG TABS 568282 PHENTERMINE HCL Inactive CRESTOR 10 MG TABS 1 by mouth every day C RESTOR 10 MG TABS 068506 ROSUVASTATIN CALCIUM Inactive LIPITOR 20 MG TABS Take one by mouth daily in evening LIPITOR 20 MG TABS 577886 ATORVASTATIN CALCIUM Inactive DEPO-TESTOSTERONE 200 MG/ML OIL as directed 8 DEPO-TESTOSTERONE 200 MG/ML OIL 236564 TESTOSTERONE CYPIONATE Inactive NAPROXEN 500 MG TABS 1 tablet by mouth twice daily 201 07/27/22 NAPROXEN 500 MG TABS 350901 NAPROXEN Inactive GABAPENTIN 300 MG CAPS 1 po qd x 2 days, then 1 po BID x 2 d ays, then 1 po TID GABAPENTIN 300 MG CAPS 950149 GABAPENTIN Inact amie ONETOUCH ULTRA BLUE STRP Test twice a day ONETOUCH ULTRA BLUE STRP GLUCOSE BLOOD Inactive NAPROXEN SODIUM 220 MG ORAL TABS 1 three times a day as needed 2 NAPROXEN SODIUM 220 MG ORAL TABS 328807 NAPROXEN SODIUM Inactive TOUJEO SOLOSTAR 300 UNIT/ML [...] Fluarix, Agriflu(>= 18 yo)) Fluzone (>3 yrs.) [IGQ083] Influenza, seasonal, inject able Seasonal influenza vaccine, injectable, containing preservative, for > 3 years old (Afluria, FluLaval, Fluzone, Fluvirin, Fluarix, Agriflu(>= 18 yo)) Fluzone (>3 yrs.) [[id number]] Influenza, seasonal, inject able Vital Signs Date [...] pressure, diastolic - 8462-4 78 mm[Hg] BP salmreon blood pressure, systolic - 8480-6 124 mm[Hg] [...] C - Chemistry sodium, serum 139 mmol/L 626-578 6427/07/07 potassium, serum 4.5 mmol/L 3.5-5.2 chloride, serum [...] 7.9 % 4.3-6.0 sodium, serum 139 mmol/L 806-430 4623/02/04 potassium, serum 5.4 mmol/L 3.5-5.2 chloride, serum [...] Panel - Chemistry sodium, serum 138 mmol/L 026-330 1727/11/23 carbon dioxide, venous blood 32.4 mmol/L 21.0-32 .0 potassium, serum 5.7 mmol/L 3.5-5.2 chloride, serum 98 mmol/L 98-107 blood glucose 136 mg/dL 65-110 urea nitrogen, blood 18 mg/dL 7-18 creatinine, serum 1.71 mg/dL 0.55-1.30 alanine aminotransferase (SGPT), serum 71 U/L 12-78 aspartate aminotransferase (SGOT), serum 34 U/L 15-37 calcium, serum 9.4 mg/dL 8.5-10.1 bilirubin, serum, total 0.40 mg/dL 0.00-1.00 cholesterol, serum 405 mg/dL 641-832 4491/11/23 triglyceride, serum, fasting 709 mg/dL 30-200 HDL [...] Panel - Chemistry sodium, serum 141 mmol/L 116-860 2399/08/08 potassium, serum 4.9 mmol/L 3.5-5.2 chloride, serum [...] mg/dL Encounters Code Encounter Date Provider Facility CPT-68716 Level 4 Est. Patient 11:34:17 CDT Baltazar Childers MD [facility] CPT-35467 Level 3 Est. Patient 16:40:40 CDT Baltazar Childers MD [facility] CPT-10877 Level 4 Est. Patient 10:41:24 CDT Baltazar Childers MD [facility] CPT-81673 Level 4 Est. Patient 16:01:48 CDT Baltazar Childers MD [facility] CPT-61391 Level 4 Est. 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 Patient 15:42:12 CDT Baltazar Childers MD [facility] CPT-07191 Level 4 Est. Patient 11:29:55 CDT Baltazar Childers MD [facility] CPT-59811 Level 4 Est. Patient 14:15:19 CDT Baltazar Childers MD [facility] CPT-45847 Level 4 Est. Patient 12:20:13 CDT Baltazar Childers MD [facility] CPT-48667 Level 4 Est. Patient 14:52:45 CONCRETE BUCKET LOADER Baltazar Childers MD [facility] CPT-77469 Level 4 Est. Patient 14:18:34 CONCRETE BUCKET LOADER Baltazar Childers MD [facility] CPT-31459 Level 4 Est. Patient 15:18:29 CDT Baltazar Childers MD [facility] CPT-38549 Level 3 Est. Patient 12:45:34 CDT Baltazar Childers MD [facility] CPT-31195 Level 3 Est. Patient 10:10:11 CDT Baltazar Childers MD [facility] CPT-45981 Level 3 Est. Patient 14:07:50 CDT Baltazar Childers MD [facility] CPT-35151 Level 4 Est. Patient 12:26:10 CONCRETE BUCKET LOADER Baltazar Childers MD [facility] CPT-41217 Level 4 Est. Patient 14:45:38 CDT Baltazar Childers MD [facility] CPT-69446 Level 4 New Patient 12:30:48 CDT Baltazar hinton MD [facility] Procedures Code Procedure Name Date Entry Date Standard Desc ription CPT-03855 Renal Panel - LAB USE ONLY 17:39:20 CDT 201 10/31/07 CPT-39224 CBC - LAB USE ONLY 17:39:20 CDT CPT-25895 Venipuncture Draw Fee 17:39:20 CDT CPT-06662 Venipuncture Draw Fee 14:33:30 CDT CPT-32609 Renal Panel - LAB USE ONLY 14:33:30 CDT 201 10/31/07 CPT-16364 CBC - LAB USE ONLY 14:33:29 CDT CPT-86801 Venipuncture Draw Fee 14:50:21 CONCRETE BUCKET LOADER CPT-36852 Immunization Single Admin 17:35:35 CDT 2014 CPT-42683 Fluzone Quadrivalent preservative free ( >=3yrs.) 17:35:35 CDT CPT-69009 Venipuncture Draw Fee 12:10:27 CONCRETE BUCKET LOADER CPT-02721 Fluzone Quadrivalent Intramuscular Suspe nsion 0.5 ML 10:49:13 CDT CPT-28711 First Vx Component - Ix admi n via ID IM or jet inj without physician counseling 15:17:19 CONCRETE BUCKET LOADER CPT-11835 Pneumovax 15:17:19 CONCRETE BUCKET LOADER CPT-93596 Pneumovax 14:52:45 CONCRETE BUCKET LOADER CPT-71481 Venipuncture Draw Fee 14:06:30 CONCRETE BUCKET LOADER CPT-000 Give Appropriate Flu Vaccine 14:18:34 CONCRETE BUCKET LOADER 2 CPT-52382 Administration single or combination vac cine inc oral 14:46:00 CONCRETE BUCKET LOADER CPT-28998 Influenza split virus > age 3 14:46:00 CONCRETE BUCKET LOADER CPT-OV Office Visit 19:13:16 CDT CPT-64444 Zostavax 18:41:56 CDT CPT-24349 Administration single or combination vac cine inc oral 12:56:39 CDT CPT-62885 Zoster Vaccine (Zostavax) 12:56:39 CDT 2012 CPT-27930 Venipuncture Draw Fee 10:58:57 CDT CPT-68136 Sono pelvis non OB uterus ovaries cervix 17:45:04 CDT CPT-06833 Sono retroperitoneal complete kidneys an d bladder 17:14:36 CDT CPT-OV Office Visit 14:59:38 CONCRETE BUCKET LOADER CPT-J1070 Depo Testosterone 100 mg 14:50:13 CDT 03/05 CPT-36926 Abx/Therapy Injection 14:50:13 CDT CPT-15631 Administration single or combination vac cine inc oral 14:34:43 CDT CPT-36225 Influenza split virus > age 3 14:34:43 CDT CPT-J1070 Depo Testosterone 100 mg 17:37:13 CDT 01/11 CPT-60738 Abx/Therapy Injection 17:37:13 CDT CPT-19963 Venipuncture Draw Fee 16:30:13 CDT CPT-41544 Venipuncture Draw Fee 16:29:43 CDT CPT-J1070 Depo Testosterone 100 mg 14:45:38 CDT 01/11
--- OUTSIDE RECORDS SUMMARY | 2019-10-27 13:31 | XMS REPORT | Clinical Summary ---
Author Author Admin, Elba Lance Michelle [facility] Address Unknown Phone Unavailable [...] mention of status migrainosus HYPERLIPIDEMIA 272.4 Active Batlazar Childers MD Other and unspecified hyperlipidemia CARPAL TUNNEL SYNDROME 354.0 Active Baltazar silverman MD Carpal tunnel syndrome OBESITY 278.00 Active Baltazar Childers MD Obesity, unspecified ADD 314.00 Active Baltazar Childers MD Attention deficit disorder of childhood without mention of hyperactivity DECREASED LIBIDO 799.81 Active Baltazar Wayne Decreased libido COLON POLYPS 211.3 Resolved Lolis Thomas DOPE EDGER Benign neoplasm of colon PERIPHERAL NEUROPATHY 356.9 [...] ronary atherosclerosis of unspecified type of vessel, [place] or graft OTH NONSPC ABN FINDNG RAD&OTH EXM BODY STRUCTURE 793.99 11/08 Active Jesys Ruiz Other nonspecific (a bnormal) findings on [...] a day as needed 2 NAPROXEN SODIUM 98011029434 No Longer Active Baltazar Childers MD Active ATORVASTATIN CALCIUM 20 MG ORAL TABS Take 1 tab daily ATORVASTATIN CALCIUM 64353230440 Active KENDALL Juarez Active FUROSEMIDE 40 MG TABS Take one by mouth daily FUROSEMIDE 57260585552 Active Baltazar Childers MD Active LISINOPRIL 20 MG TABS Take one by mouth daily at bedtime LISINOPRIL 48707962017 Active KENDALL Juarez Active ONETOUCH ULTRA BLUE STRP Test twice a day GLUCO SE BLOOD 39864657487 No Longer Active Baltazar Chidlers MD Active TRUEPLUS LANCETS 33G MISC Test twice a day LANCET S 90928307338 Active KENDALL Juarez Active TRUEDRAW LANCING DEVICE MISC Test twice a day L ANCET DEVICES 30689150879 Active Baltazar Childers MD Active TRUETRACK TEST STRP Test twice a day GLUCOSE BLOO D 59782253378 Active Baltazar Childers MD Active TRUETRACK BLOOD GLUCOSE W/DEVICE KIT Test twice a day BLOOD GLUCOSE MONITORING SUPPL 96871659889 Active Baltazar Childers MD Activ e HYDROCODONE-ACETAMINOPHEN 7.5-325 MG TABS Take 1 tab every 6-8 hour s PRN HYDROCODONE-ACETAMINOPHEN 67390989508 Active Baltazar Childers MD Active NORTRIPTYLINE HCL 50 MG CAPS 1 every night for neuropathy 4 NORTRIPTYLINE HCL 90788446028 Active Baltazar Childers MD Acti ve GABAPENTIN 300 MG CAPS 1 three times a day GABAPE NTIN 47102441796 Active KENDALL Juarez Active GABAPENTIN 300 MG CAPS 1 po qd x 2 days, then 1 po BID x 2 d ays, then 1 po TID GABAPENTIN 66304943157 No Longer Active Baltazar silverman MD Active TRAMADOL HCL 50 MG TABS 1 twice a day as needed for pain TRAMADOL HCL 31258643413 Active Baltazar Childers MD Active NAPROXEN 500 MG TABS 1 tablet by mouth twice daily NAPROXEN 40586170982 No Longer Active Baltazar Childers MD Active PROAIR HFA 108 (90 BASE) MCG/ACT AERS 2 puffs four times a d ay as needed ALBUTEROL SULFATE 80596308387 Active KENDALL Juarez Active DEPO-TESTOSTERONE 200 MG/ML OIL as directed RUFINO TOSTERONE CYPIONATE 75136752358 No Longer Active Baltazar Childers MD Active LIPITOR 20 MG TABS Take one by mouth daily in evening ATORVASTATIN CALCIUM 77644504543 No Longer Active Baltazar Childers MD Activ e CRESTOR 10 MG TABS 1 by mouth every day R OSUVASTATIN CALCIUM 27732292501 No Longer Active Baltazar Childers MD Activ e PHENTERMINE HCL 37.5 MG TABS Take one by mouth daily 2 PHENTERMINE HCL 11690439765 No Longer Active Baltazar Childers MD Activ e ROBAXIN-750 750 MG TABS Take one by mouth daily ME THOCARBAMOL 86647978582 Active Baltazar Childers MD Active TIZANIDINE HCL 4 MG TABS 1 daily as needed for muscle spasm 2011 TIZANIDINE HCL 38410930706 No Longer Active Dawna Salazar RN Active [id number] 50-325-40 MG TABS 1 four time s a day as needed for heacache PDZLIOIZIA-QXNN-HRAZOWSO 64905318280 Active KENDALL Juarez Active SUMATRIPTAN SUCCINATE 100 MG TABS 1 tablet by mouth at onset of migraine as needed SUMATRIPTAN SUCCINATE 83502743486 Active KENDALL Juarez Active LORATADINE 10 MG TABS Take one by mouth daily LORATADINE 49542522065 Active Baltazar Childers MD Active OMEPRAZOLE 20 MG CPDR Take one by mouth daily OMEPRAZOLE 21361698938 Active Baltazar Childers MD Active HYDROXYZINE HCL 25 MG TABS Take one by mouth daily HYDROXYZINE HCL 81481590414 Active Baltazar Childers MD Active GLIPIZIDE 10 MG TABS 1 tablet by mouth twice daily GLIPIZIDE 40426372335 Active KENDALL Juarez Active ALPRAZOLAM 1 MG TABS 1 tablet by mouth daily at bedtime for restles s leg ALPRAZOLAM 74435471439 Active Baltazar Childers MD Active METFORMIN HCL 1000 MG TABS Take one by mouth twice daily METFORMIN HCL 80056936744 Active Baltazar Childers MD Active TIZANIDINE HCL 4 MG TABS 1 daily as needed for muscle spasm 2011 TIZANIDINE HCL 4 MG TABS 501831 TIZANIDINE HCL Inactiv e PHENTERMINE HCL 37.5 MG TABS Take one by mouth daily 2 PHENTERMINE HCL 37.5 MG TABS 952104 PHENTERMINE HCL Inactive CRESTOR 10 MG TABS 1 by mouth every day C RESTOR 10 MG TABS ROSUVASTATIN CALCIUM Inactive LIPITOR 20 MG TABS Take one by mouth daily in evening LIPITOR 20 MG TABS 371839 ATORVASTATIN CALCIUM Inactive DEPO-TESTOSTERONE 200 MG/ML OIL as directed 8 DEPO-TESTOSTERONE 200 MG/ML OIL 915821 TESTOSTERONE CYPIONATE Inactive NAPROXEN 500 MG TABS 1 tablet by mouth twice daily 201 07/27/22 NAPROXEN 500 MG TABS 439145 NAPROXEN Inactive GABAPENTIN 300 MG CAPS 1 po qd x 2 days, then 1 po BID x 2 d ays, then 1 po TID GABAPENTIN 300 MG CAPS 050670 GABAPENTIN Inact amie ONETOUCH ULTRA BLUE STRP Test twice a day ONETOUCH ULTRA BLUE STRP GLUCOSE BLOOD Inactive NAPROXEN SODIUM 220 MG ORAL TABS 1 three times a day as needed 2 NAPROXEN SODIUM 220 MG ORAL TABS 543534 NAPROXEN SODIUM Inactive Immunizations Vaccine Administration Date Value Standard Floyd cription pneumococcal immunization administered Pneumovax 23 [CVX33] pneumococcal polysaccharide vaccine, 23 valent Seasonal influenza vaccine, injectable, containing preservative, for > 3 years old (Afluria, FluLaval, Fluzone, Fluvirin, Fluarix, Agriflu(>= 18 yo)) Fluzone (>3 yrs.) [[id number]] Influenza, seasonal, inject able Seasonal influenza vaccine, injectable, containing preservative, for > 3 years old (Afluria, FluLaval, Fluzone, Fluvirin, Fluarix, Agriflu(>= 18 yo)) Fluzone (>3 yrs.) [[id number]] Influenza, seasonal, inject able Vital Signs Date [...] 7.9 % 4.3-6.0 sodium, serum 139 mmol/L 063-816 4289/02/04 potassium, serum 5.4 mmol/L 3.5-5.2 chloride, serum [...] Panel - Chemistry sodium, serum 138 mmol/L 566-477 5910/11/23 carbon dioxide, venous blood 32.4 mmol/L 21.0-32 .0 potassium, serum 5.7 mmol/L 3.5-5.2 chloride, serum 98 mmol/L 98-107 blood glucose 136 mg/dL 65-110 urea nitrogen, blood 18 mg/dL 7-18 creatinine, serum 1.71 mg/dL 0.55-1.30 alanine aminotransferase (SGPT), serum 71 U/L 12-78 aspartate aminotransferase (SGOT), serum 34 U/L 15-37 calcium, serum 9.4 mg/dL 8.5-10.1 bilirubin, serum, total 0.40 mg/dL 0.00-1.00 cholesterol, serum 405 mg/dL 386-934 5467/11/23 triglyceride, serum, fasting 709 mg/dL 30-200 HDL [...] mg/dL Encounters Code Encounter Date Provider Facility CPT-88469 Level 4 Est. Patient 16:01:48 CDT Baltazar Childers MD [facility] CPT-02551 Level 4 Est. Patient 16:54:07 STATIC BALANCER Baltazar Childers MD [facility] CPT-69439 Level 4 Est. Patient 15:42:12 CDT Baltazar Childers MD [facility] CPT-79047 Level 4 Est. Patient 11:29:55 CDT Baltazar Childers MD [facility] CPT-35927 Level 4 Est. Patient 14:15:19 CDT Baltazar Childers MD [facility] CPT-57015 Level 4 Est. Patient 12:20:13 CDT Baltazar Childers MD [facility] CPT-88373 Level 4 Est. Patient 14:52:45 STATIC BALANCER Baltazar Childers MD [facility] CPT-64347 Level 4 Est. Patient 14:18:34 STATIC BALANCER Baltazar Childers MD [facility] CPT-46731 Level 4 Est. Patient 15:18:29 CDT Baltazar Childers MD [facility] CPT-47764 Level 3 Est. Patient 12:45:34 CDT Baltazar Childers MD [facility] CPT-15597 Level 3 Est. Patient 10:10:11 CDT Baltazar Childers MD [facility] CPT-91275 Level 3 Est. Patient 14:07:50 CDT Baltazar Childers MD [facility] CPT-71267 Level 4 Est. Patient 12:26:10 STATIC BALANCER Baltazar Childers MD [facility] CPT-54204 Level 4 Est. Patient 14:45:38 CDT Baltazar Childers MD [facility] CPT-15513 Level 4 New Patient 12:30:48 CDT Baltazar hinton MD [facility] Procedures Code Procedure Name Date Entry Date Standard Desc ription CPT-00177 Venipuncture Draw Fee 14:50:21 STATIC BALANCER CPT-45143 Immunization Single Admin 17:35:35 CDT 2014 CPT-66761 Fluzone Quadrivalent preservative free ( >=3yrs.) 17:35:35 CDT CPT-66164 Venipuncture Draw Fee 12:10:27 STATIC BALANCER CPT-25651 Fluzone Quadrivalent Intramuscular Suspe nsion 0.5 ML 10:49:13 CDT CPT-48509 First Vx Component - Ix admi n via ID IM or jet inj without physician counseling 15:17:19 STATIC BALANCER CPT-84909 Pneumovax 15:17:19 STATIC BALANCER CPT-81750 Pneumovax 14:52:45 STATIC BALANCER CPT-63486 Venipuncture Draw Fee 14:06:30 STATIC BALANCER CPT-000 Give Appropriate Flu Vaccine 14:18:34 STATIC BALANCER 2 CPT-40843 Administration single or combination vac cine inc oral 14:46:00 STATIC BALANCER CPT-24044 Influenza split virus > age 3 14:46:00 STATIC BALANCER CPT-OV Office Visit 19:13:16 CDT CPT-24558 Zostavax 18:41:56 CDT CPT-69127 Administration single or combination vac cine inc oral 12:56:39 CDT CPT-89384 Zoster Vaccine (Zostavax) 12:56:39 CDT 2012 CPT-30804 Venipuncture Draw Fee 10:58:57 CDT CPT-83325 Sono pelvis non OB uterus ovaries cervix 17:45:04 CDT CPT-15709 Sono retroperitoneal complete kidneys an d bladder 17:14:36 CDT CPT-OV Office Visit 14:59:38 STATIC BALANCER CPT-J1070 Depo Testosterone 100 mg 14:50:13 CDT 03/05 CPT-00082 Abx/Therapy Injection 14:50:13 CDT CPT-76913 Administration single or combination vac cine inc oral 14:34:43 CDT CPT-15504 Influenza split virus > age 3 14:34:43 CDT CPT-J1070 Depo Testosterone 100 mg 17:37:13 CDT 01/11 CPT-52274 Abx/Therapy Injection 17:37:13 CDT CPT-31617 Venipuncture Draw Fee 16:30:13 CDT CPT-63496 Venipuncture Draw Fee 16:29:43 CDT CPT-J1070 Depo Testosterone 100 mg 14:45:38 CDT 01/11
--- OUTSIDE RECORDS SUMMARY | 2019-10-27 13:31 | XMS REPORT | Clinical Summary ---
Author Author Admin, Elba [facility] Address Unknown Phone Unavailable Allergies, Adverse [...] libido COLON POLYPS 211.3 Resolved Lolis Thomas BANKING REPRESENTATIVE Benign neoplasm of colon PERIPHERAL NEUROPATHY [...] three times a day 201 12/03/26 GABAPENTIN 21473434950 No Longer Active Baltazar Childers MD Activ e LISINOPRIL 20 MG ORAL TABLET 1 tablet by mouth daily at night 2016 LISINOPRIL 71497453762 Active Baltazar Childers MD Active ZITHROMAX Z-ISAIAS 250 MG ORAL TABLET Take two tablets to day and then 1 tablet daily for 4 days AZITHROMYCIN 23829770955 No Longer A ctive Baltazar Childers MD Active LANTUS SOLOSTAR 100 UNIT/ML SUBCUTANEOUS SOLUTION PEN- INJECTOR 30 units SC daily INSULIN GLARGINE 10229150497 Active Baltazar Childers MD Active AMLODIPINE BESYLATE 5 MG ORAL TABLET 1 tab daily for HTN AMLODIPINE BESYLATE 28789379530 Active Baltazar Childers MD Active SYNTHROID 100 MCG ORAL TABLET 1 tablet by mouth daily LEVOTHYROXINE SODIUM 00715697043 Active Baltazar Childers MD Active GLIPIZIDE 10 MG ORAL TABLET take 2 tablets twice daily GLIPIZIDE 96238681010 Active Baltazar Childers MD Active SUCRALFATE 1 GM ORAL TABLET 1 four times a day to coat the stoma ch SUCRALFATE 88698195001 No Longer Active Baltazar Childers MD Active PEN NEEDLES 31G X 6 MM use 1 daily INSULIN PEN NE EDLE 62521900371 Active KENDALL Juarez Active CELINA POWERSOSTNAKITA 300 UNIT/ML SUBCUTANEOUS SOLUTION PEN- INJECTOR 10 units SC daily INSULIN GLARGINE 94524516934 No Longer Active oRla Godinez RMA Active NAPROXEN SODIUM 220 MG ORAL TABLET 1 three times a day as needed NAPROXEN SODIUM 45881784998 No Longer Active Baltazar Childers MD Active ATORVASTATIN CALCIUM 20 MG ORAL TABLET Take 1 tab daily ATORVASTATIN CALCIUM 37246447641 Active Baltazar Childers MD A ctive FUROSEMIDE 40 MG ORAL TABLET Take one by mouth daily FUROSEMIDE 06224653955 Active Jessy Arellano LPN Active LISINOPRIL 20 MG ORAL TABLET Take one by mouth daily at bedtime LISINOPRIL 43545827164 No Longer Active Baltazar Childers MD Active ONETOUCH ULTRA BLUE IN VITRO STRIP Test twice a day 07/11/11 GLUCOSE BLOOD 53391636417 No Longer Active Baltazar Childers MD Acti ve TRUEPLUS LANCETS 33G Test twice a day LANCETS 8529103 6255 Active KENDALL Juarez Active TRUEDRAW LANCING DEVICE Test twice a day LANCET DEVICES 35822458377 Active Baltazar Childers MD Active TRUETRACK TEST IN VITRO STRIP Test twice a day GLUCOSE BLOOD 35965725805 Active KENDALL Juarez Active TRUETRACK BLOOD GLUCOSE w/Device KIT Test twice a day BLOOD GLUCOSE MONITORING SUPPL 21505887688 Active Baltazar Childers MD Activ e HYDROCODONE-ACETAMINOPHEN 7.5-325 MG ORAL TABLET Take 1 tab every 6-8 hours PRN HYDROCODONE-ACETAMINOPHEN 17832570018 Active Baltazar Nickerson MD Active NORTRIPTYLINE HCL 50 MG ORAL CAPSULE 1 every night for neuropathy 2 NORTRIPTYLINE HCL 14320286481 Active Baltazar Childers MD Acti ve GABAPENTIN 300 MG ORAL CAPSULE 1 po qd x 2 days, then 1 po BID x 2 days, then 1 po TID GABAPENTIN 99233285521 No Longer Active Baltazar Childers MD Active TRAMADOL HCL 50 MG ORAL TABLET 1 twice a day as needed for pain 201 07/27/28 TRAMADOL HCL 34888348696 Active Baltazar Childers MD Active NAPROXEN 500 MG ORAL TABLET 1 tablet by mouth twice daily NAPROXEN 37241998620 No Longer Active Baltazar Childers MD Active PROAIR HFA 108 (90 Base) MCG/ACT INHALATION AEROSOL SO LUTION 2 puffs four times a day as needed ALBUTEROL SULFATE 24711546314 Active Paul Childers MD Active DEPO-TESTOSTERONE 200 MG/ML INTRAMUSCULAR SOLUTION as directed TESTOSTERONE CYPIONATE 96966175523 No Longer Active Baltazar Childers MD Active LIPITOR 20 MG ORAL TABLET Take one by mouth daily in evening ATORVASTATIN CALCIUM 35025981601 No Longer Active Baltazar Childers MD Active CRESTOR 10 MG ORAL TABLET 1 by mouth every day ROSUVASTATIN CALCIUM 44108911079 No Longer Active Baltazar Childers MD Active PHENTERMINE HCL 37.5 MG ORAL TABLET Take one by mouth daily PHENTERMINE HCL 97724802807 No Longer Active Baltazar Childers MD Ac tive ROBAXIN-750 750 MG ORAL TABLET Take one by mouth daily METHOCARBAMOL 73120944264 Active Baltazar Childers MD Active TIZANIDINE HCL 4 MG ORAL TABLET 1 daily as needed for muscle spa sm TIZANIDINE HCL 54449433109 No Longer Active Dawna Salazar RN Active [id number] 50-325-40 MG ORAL TABLET 1 fo ur times a day as needed for heacache [id number] 86912404060 Active Baltazar Childers MD Active SUMATRIPTAN SUCCINATE 100 MG ORAL TABLET 1 tablet by m outh at onset of migraine as needed SUMATRIPTAN SUCCINATE 27033002552 Active Bertha Vaqzuez LPN Active LORATADINE 10 MG ORAL TABLET Take one by mouth daily LORATADINE 46713825318 Active Baltazar Childers MD Active OMEPRAZOLE 20 MG ORAL CAPSULE DELAYED RELEASE Take one by mouth jostin ly OMEPRAZOLE 78106349334 Active Baltazar Childers MD Active HYDROXYZINE HCL 25 MG ORAL TABLET Take one by mouth daily HYDROXYZINE HCL 38623182184 Active Baltazar Childers MD Active ALPRAZOLAM 1 MG ORAL TABLET 1 [facility] AL[facility] 39232667960 Active Baltazar Childers MD Active METFORMIN HCL 1000 MG ORAL TABLET Take one by mouth twice daily METFORMIN HCL 09757507974 Active Baltazar Childers MD Active TIZANIDINE HCL 4 MG ORAL TABLET 1 daily as needed for muscle spa sm TIZANIDINE HCL 4 MG ORAL TABLET 549851 TIZANIDINE HCL Inactive PHENTERMINE HCL 37.5 MG ORAL TABLET Take one by mouth daily PHENTERMINE HCL 37.5 MG ORAL TABLET 333533 PHENTERMINE HCL Inac tive CRESTOR 10 MG ORAL TABLET 1 by mouth every day CRESTOR 10 MG ORAL TABLET 120577 ROSUVASTATIN CALCIUM Inactive LIPITOR 20 MG ORAL TABLET Take one by mouth daily in evening LIPITOR 20 MG ORAL TABLET 399053 ATORVASTATIN CALCIUM Inactive DEPO-TESTOSTERONE 200 MG/ML INTRAMUSCULAR SOLUTION as directed DEPO-TESTOSTERONE 200 MG/ML INTRAMUSCULAR SOLUTION 590062 RUFINO TOSTERONE CYPIONATE Inactive NAPROXEN 500 MG ORAL TABLET 1 tablet by mouth twice daily NAPROXEN 500 MG ORAL TABLET 743880 NAPROXEN Inactive GABAPENTIN 300 MG ORAL CAPSULE 1 po qd x 2 days, then 1 po BID x 2 days, then 1 po TID GABAPENTIN 300 MG ORAL CAPSULE 736440 GABAP ENTIN Inactive ONETOUCH ULTRA BLUE IN VITRO STRIP Test twice a day 07/11/11 ONETOUCH ULTRA BLUE IN VITRO STRIP GLUCOSE BLOOD Inact amie NAPROXEN SODIUM 220 MG ORAL TABLET 1 three times a day as needed NAPROXEN SODIUM 220 MG ORAL TABLET 539122 NAPROXEN SODI UM Inactive TOUJEO SOLOSTAR 300 UNIT/ML SUBCUTANEOUS SOLUTION PEN- INJECTOR 10 units SC daily TOUJEO SOLOSTAR 300 UNIT/ML SUBCUTANEOUS SOLUTION PEN-INJECTOR INSULIN GLARGINE Inactive SUCRALFATE 1 GM ORAL TABLET 1 four times a day to coat the stoma ch SUCRALFATE 1 GM ORAL TABLET 827768 SUCRALFATE Inac tive GABAPENTIN 300 MG ORAL CAPSULE 1 three times a day 201 12/03/26 GABAPENTIN 300 MG ORAL CAPSULE 895876 GABAPENTIN Inactive ZITHROMAX Z-ISAIAS 250 MG ORAL TABLET Take two tablets to day and then 1 tablet daily for 4 days ZITHROMAX Z-ISAIAS 250 MG ORAL TAB LET 039356 AZITHROMYCIN Inactive Immunizations Vaccine Administration Date Value Standard Floyd cription pneumococcal immunization administered Pneumovax 23 [CVX33] pneumococcal polysaccharide vaccine, 23 valent Seasonal influenza vaccine, injectable, containing preservative, for > 3 years old (Afluria, FluLaval, Fluzone, Fluvirin, Fluarix, Agriflu(>= 18 yo)) Fluzone (>3 yrs.) [[id number]] Influenza, seasonal, inject able Seasonal influenza vaccine, injectable, containing preservative, for > 3 years old (Afluria, FluLaval, Fluzone, Fluvirin, Fluarix, Agriflu(>= 18 yo)) Fluzone (>3 yrs.) [[id number]] Influenza, seasonal, inject able Vital Signs Date [...] - Chem istry sodium, serum 139 mmol/L 146-847 8777/10/03 potassium, serum 4.7 mmol/L 3.5-5.2 chloride, serum 98 mmol/L 98-107 carbon dioxide, venous blood 28.7 mmol/L 21.0-32 .0 blood glucose 218 mg/dL 65-110 calcium, serum 9.8 mg/dL 8.5-10.1 urea nitrogen, blood 19 mg/dL 7-18 creatinine, serum 1.68 mg/dL 0.60-1.30 Lab Report: Basic Metabolic Panel, HGBA1 C - Chemistry sodium, serum 143 mmol/L 577-610 1003/06/19 potassium, serum 5.9 mmol/L 3.5-5.2 chloride, serum 105 mmol/L 98-107 carbon dioxide, venous blood 30.2 mmol/L 21.0-32 .0 blood glucose 189 mg/dL 65-110 calcium, serum 9.7 mg/dL 8.5-10.1 urea nitrogen, blood 37 mg/dL 7-18 creatinine, serum 2.11 mg/dL 0.55-1.30 hemoglobin A1C, blood, as % of total hemoglobin 8.2 % 4.3-6.0 Lab Report: CBC, Renal Panel - Chemistry sodium, serum 142 mmol/L 507-570 9524/08/11 potassium, serum 4.8 mmol/L 3.5-5.2 chloride, serum [...] (L) - Chemistry cholesterol, serum 209 mg/dL 299-882 5746/12/27 triglyceride, serum, fasting 329 mg/dL 30-200 HDL cholesterol, serum 56 mg/dL 32-60 LDL cholesterol, serum 87 mg/dL 0-130 TSH 3.60 m[iU]/mL 0.36-3.74 Encounters Code Encounter Date Provider Facility CPT-72952 Level 4 Est. Patient 16:21:19 FAST FOOD CREW MEMBER Baltazar Childers MD [facility] CPT-53002 Level 4 Est. Patient 12:25:11 CDT Baltazar Childers MD [facility]-88665 Level 4 Est. Patient 14:22:31 CDT Baltazar Childers MD [facility]-21491 Level 4 Est. Patient 15:44:38 CDT Shonna Elena CASTELLANOS [facility]-13389 Level 4 Est. Patient 11:34:17 CDT Baltazar Childers MD [facility]-99626 Level 3 Est. Patient 16:40:40 CDT Baltazar Childers MD [facility]-94002 Level 4 Est. Patient 10:41:24 CDT Baltazar Childers MD [facility]-56861 Level 4 Est. Patient 16:01:48 CDT Baltazar Childers MD [facility]-08362 Level 4 Est. Patient 16:54:07 FAST FOOD CREW MEMBER Baltazar Childers MD [facility]-35906 Level 4 Est. Patient 15:42:12 CDT Baltazar Childers MD [facility] CPT-06097 Level 4 Est. Patient 11:29:55 CDT Baltazar Childers MD [facility]-83817 Level 4 Est. Patient 14:15:19 CDT Baltazar Childers MD [facility]-23525 Level 4 Est. Patient 12:20:13 CDT Baltazar Childers MD [facility] CPT-20199 Level 4 Est. Patient 14:52:45 FAST FOOD CREW MEMBER Baltazar Childers MD [facility] CPT-95381 Level 4 Est. Patient 14:18:34 FAST FOOD CREW MEMBER Baltazar Childers MD [facility]-98316 Level 4 Est. Patient 15:18:29 CDT Baltazar Childers MD [facility]-77767 Level 3 Est. Patient 12:45:34 CDT Baltazar Childers MD [facility] CPT-54664 Level 3 Est. Patient 10:10:11 CDT Baltazar Childers MD [facility] CPT-25273 Level 3 Est. Patient 14:07:50 CDT Baltazar Childers MD [facility] CPT-26072 Level 4 Est. Patient 12:26:10 FAST [employer]OD CREW MEMBER Baltazar Childers MD [facility] CPT-67964 Level 4 Est. Patient 14:45:38 CDT Baltazar Childers MD [facility] CPT-13003 Level 4 New Patient 12:30:48 CDT Baltazar hinton MD [facility] Procedures Code Procedure Name Date Entry Date Standard Desc ription CPT-66356 First Vx - Ix admin via ID I M or jet injects without counseling by physician 13:08:59 CDT CPT-29363 Fluzone Quadrivalent Intramuscular Suspe nsion 0.5 ML 13:08:59 CDT CPT-14170 Venipuncture Draw Fee 12:04:12 CDT CPT-02620 Lipid - LAB USE ONLY 17:39:15 FAST [employer] CREW MEMBER 9 CPT-06679 HGBA1C - LAB USE ONLY 17:39:15 FAST [employer]OD CREW MEMBER CPT-34526 CMP - LAB USE ONLY 17:39:14 FAST [employer] CREW MEMBER CPT-38914 Venipuncture Draw Fee 17:39:14 FAST FOOD CREW MEMBER CPT-11104 First Vx - Ix admin via ID I M or jet injects without counseling by physician 16:55:17 FAST [employer]OD CREW MEMBER CPT-44449 Fluzone Quadrivalent Intramuscular Suspe nsion 0.5 ML 16:55:17 FAST [employer]OD CREW MEMBER CPT-71941 Renal Panel - LAB USE ONLY 17:39:20 CDT 201 10/31/07 CPT-40578 CBC - LAB USE ONLY 17:39:20 CDT CPT-06410 Venipuncture Draw Fee 17:39:20 CDT CPT-50537 Venipuncture Draw Fee 14:33:30 CDT CPT-54379 Renal Panel - LAB USE ONLY 14:33:30 CDT 201 10/31/07 CPT-70483 CBC - LAB USE ONLY 14:33:29 CDT CPT-38979 Venipuncture Draw Fee 14:50:21 FAST [employer]OD CREW MEMBER CPT-90113 Immunization Single Admin 17:35:35 CDT 2014 CPT-26507 Fluzone Quadrivalent preservative free ( >=3yrs.) 17:35:35 CDT CPT-73614 Venipuncture Draw Fee 12:10:27 FAST FOOD CREW MEMBER CPT-96742 Fluzone Quadrivalent Intramuscular Suspe nsion 0.5 ML 10:49:13 CDT CPT-53275 First Vx Component - Ix admi n via ID IM or jet inj without physician counseling 15:17:19 FAST [employer]OD CREW MEMBER CPT-61396 Pneumovax 23 15:17:19 FAST [employer]W MEMBER CPT-72554 Pneumovax 14:52:45 FA[employer]W MEMBER CPT-24402 Venipuncture Draw Fee 14:06:30 FA[employer]W MEMBER CPT-000 Give Appropriate Flu Vaccine 14:18:34 FAST [employer] CREW MEMBER 2 CPT-53421 Administration single or combination vac cine inc oral 14:46:00 FAST [employer] CREW MEMBER CPT-12881 Influenza split virus > age 3 14:46:00 FAST [employer]OD CREW MEMBER CPT-OV Office Visit 19:13:16 CDT CPT-59854 Zostavax 18:41:56 CDT CPT-51612 Administration single or combination vac cine inc oral 12:56:39 CDT CPT-21504 Zoster Vaccine (Zostavax) 12:56:39 CDT 2012 CPT-38021 Venipuncture Draw Fee 10:58:57 CDT CPT-40227 Sono pelvis non OB uterus ovaries cervix 17:45:04 CDT CPT-56746 Sono retroperitoneal complete kidneys an d bladder 17:14:36 CDT CPT-OV Office Visit 14:59:38 FA[employer]W MEMBER CPT-J1070 Depo Testosterone 100 mg 14:50:13 CDT 03/05 CPT-21348 Abx/Therapy Injection 14:50:13 CDT CPT-84611 Administration single or combination vac cine inc oral 14:34:43 CDT CPT-63443 Influenza split virus > age 3 14:34:43 CDT CPT-J1070 Depo Testosterone 100 mg 17:37:13 CDT 01/11 CPT-22183 Abx/Therapy Injection 17:37:13 CDT CPT-47983 Venipuncture Draw Fee 16:30:13 CDT CPT-75090 Venipuncture Draw Fee 16:29:43 CDT CPT-J1070 Depo Testosterone 100 mg 14:45:38 CDT 01/11
--- OUTSIDE RECORDS SUMMARY | 2019-10-27 13:32 | XMS REPORT | Clinical Summary ---
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 Benign neoplasm of colon PERIPHERAL NEUROPATHY [...] 1 tab daily for HTN AMLODIPINE BESYLATE 55231658189 Active KENDALL Juarez Active SYNTHROID 0.1 MG TAB 1 tablet by mouth daily LE VOTHYROXINE SODIUM 60306517191 Active Shonna Parker APRN Active GLIPIZIDE 10 MG TAB take 2 tablets twice daily GLIPIZIDE 59184200243 Active Baltazar Childers MD Active SUCRALFATE 1 GM TABS 1 four times a day to coat the stomach 2015 SUCRALFATE 88693893974 No Longer Active Baltazar Childers MD Active PEN NEEDLES 31G X 6 MM MISC use 1 daily INSULIN PEN NEEDLE 31619123698 Active Gato Rae MD Active TOUJEO SOLOSTAR 300 UNIT/ML SC SOPN 10 units SC daily INSULIN GLARGINE 08546082840 No Longer Active [place] ARGUETA Active LANTUS SOLOSTAR 100 UNIT/ML SC SOPN 10 units SC daily INSULIN GLARGINE 58960787489 Active KENDALL Juarez Active NAPROXEN SODIUM 220 MG ORAL TABS 1 three times a day as needed 2 NAPROXEN SODIUM 91316225343 No Longer Active Baltazar Childers MD Active ATORVASTATIN CALCIUM 20 MG ORAL TABS Take 1 tab daily ATORVASTATIN CALCIUM 41177691241 Active Baltazar Childers MD Active FUROSEMIDE 40 MG TABS Take one by mouth daily FUROSEMIDE 50889557485 Active Baltazar Childers MD Active LISINOPRIL 20 MG TABS Take one by mouth daily at bedtime LISINOPRIL 02459537695 No Longer Active Baltazar Childers MD Active ONETOUCH ULTRA BLUE STRP Test twice a day GLUCO SE BLOOD 68393103934 No Longer Active Baltazar Childers MD Active TRUEPLUS LANCETS 33G MISC Test twice a day LANCET S 44305080077 Active KENDALL Juarez Active TRUEDRAW LANCING DEVICE MISC Test twice a day L ANCET DEVICES 39124724022 Active Baltazar Childers MD Active TRUETRACK TEST STRP Test twice a day GLUCOSE BLOO D 70109444624 Active KENDALL Juarez Active TRUETRACK BLOOD GLUCOSE W/DEVICE KIT Test twice a day BLOOD GLUCOSE MONITORING SUPPL 45701038667 Active Baltazar Childers MD Activ e HYDROCODONE-ACETAMINOPHEN 7.5-325 MG TABS Take 1 tab every 6-8 hour s PRN HYDROCODONE-ACETAMINOPHEN 41485381691 Active Baltazar Childers MD Active NORTRIPTYLINE HCL 50 MG CAPS 1 every night for neuropathy 4 NORTRIPTYLINE HCL 43948334518 Active Baltazar Childers MD Acti ve GABAPENTIN 300 MG CAPS 1 three times a day GABAPE NTIN 97370356400 Active Baltazar Childers MD Active GABAPENTIN 300 MG CAPS 1 po qd x 2 days, then 1 po BID x 2 d ays, then 1 po TID GABAPENTIN 45831835515 No Longer Active Baltazar silverman MD Active TRAMADOL HCL 50 MG TABS 1 twice a day as needed for pain TRAMADOL HCL 13844009730 Active Baltazar Childers MD Active NAPROXEN 500 MG TABS 1 tablet by mouth twice daily NAPROXEN 44625012149 No Longer Active Baltazar Childers MD Active PROAIR HFA 108 (90 BASE) MCG/ACT AERS 2 puffs four times a d ay as needed ALBUTEROL SULFATE 54641629889 Active Baltazar Childers MD Active DEPO-TESTOSTERONE 200 MG/ML OIL as directed RUFINO TOSTERONE CYPIONATE 63332508661 No Longer Active Baltazar Childers MD Active LIPITOR 20 MG TABS Take one by mouth daily in evening ATORVASTATIN CALCIUM 20418124669 No Longer Active Baltazar Childers MD Activ e CRESTOR 10 MG TABS 1 by mouth every day R OSUVASTATIN CALCIUM 20787191935 No Longer Active Baltazar Childers MD Activ e PHENTERMINE HCL 37.5 MG TABS Take one by mouth daily 2 PHENTERMINE HCL 90716422497 No Longer Active Baltazar Childers MD Activ e ROBAXIN-750 750 MG TABS Take one by mouth daily ME THOCARBAMOL 96110085485 Active Baltazar Childers MD Active TIZANIDINE HCL 4 MG TABS 1 daily as needed for muscle spasm 2011 TIZANIDINE HCL 53910885340 No Longer Active Dawna Salazar RN Active [id number] 50-325-40 MG TABS 1 four time s a day as needed for heacache [id number] 95762656983 Active Baltazar Childers MD Active SUMATRIPTAN SUCCINATE 100 MG TABS 1 tablet by mouth at onset of migraine as needed SUMATRIPTAN SUCCINATE 47784442778 Active Shonna richey APRN Active LORATADINE 10 MG TABS Take one by mouth daily LORATADINE 96667117938 Active Beth Carr CÉSARTung Active OMEPRAZOLE 20 MG CPDR Take one by mouth daily OMEPRAZOLE 28288816089 Active Baltazar Childers MD Active HYDROXYZINE HCL 25 MG TABS Take one by mouth daily HYDROXYZINE HCL 01984974364 Active Baltazar Childers MD Active ALPRAZOLAM 1 MG TABS 1 tablet by mouth daily at bedtime for restles s leg ALPRAZOLAM 01955179705 Active Baltazar Childers MD Active METFORMIN HCL 1000 MG TABS Take one by mouth twice daily METFORMIN HCL 79123297303 Active Baltazar Childers MD Active TIZANIDINE HCL 4 MG TABS 1 daily as needed for muscle spasm 2011 TIZANIDINE HCL 4 MG TABS 462708 TIZANIDINE HCL Inactiv e PHENTERMINE HCL 37.5 MG TABS Take one by mouth daily 2 PHENTERMINE HCL 37.5 MG TABS 962743 PHENTERMINE HCL Inactive CRESTOR 10 MG TABS 1 by mouth every day C RESTOR 10 MG TABS 586530 ROSUVASTATIN CALCIUM Inactive LIPITOR 20 MG TABS Take one by mouth daily in evening LIPITOR 20 MG TABS 454741 ATORVASTATIN CALCIUM Inactive DEPO-TESTOSTERONE 200 MG/ML OIL as directed 8 DEPO-TESTOSTERONE 200 MG/ML OIL 051940 TESTOSTERONE CYPIONATE Inactive NAPROXEN 500 MG TABS 1 tablet by mouth twice daily 201 07/27/22 NAPROXEN 500 MG TABS 463640 NAPROXEN Inactive GABAPENTIN 300 MG CAPS 1 po qd x 2 days, then 1 po BID x 2 d ays, then 1 po TID GABAPENTIN 300 MG CAPS 552225 GABAPENTIN Inact amie ONETOUCH ULTRA BLUE STRP Test twice a day ONETOUCH ULTRA BLUE STRP GLUCOSE BLOOD Inactive NAPROXEN SODIUM 220 MG ORAL TABS 1 three times a day as needed 2 NAPROXEN SODIUM 220 MG ORAL TABS 886151 NAPROXEN SODIUM Inactive TOUJEO SOLOSTAR 300 UNIT/ML SC SOPN 10 units SC daily TOUJEO SOLOSTAR 300 UNIT/ML SC SOPN INSULIN GLARGINE Inac tive SUCRALFATE 1 GM TABS 1 four times a day to coat the stomach 2015 SUCRALFATE 1 GM TABS 759779 SUCRALFATE Inactive Immunizations Vaccine Administration Date Value Standard Floyd cription pneumococcal immunization administered Pneumovax 23 [CVX33] pneumococcal polysaccharide vaccine, 23 valent Seasonal influenza vaccine, injectable, containing preservative, for > 3 years old (Afluria, FluLaval, Fluzone, Fluvirin, Fluarix, Agriflu(>= 18 yo)) Fluzone (>3 yrs.) [[id number]] Influenza, seasonal, inject able Seasonal influenza vaccine, injectable, containing preservative, for > 3 years old (Afluria, FluLaval, Fluzone, Fluvirin, Fluarix, Agriflu(>= 18 yo)) Fluzone (>3 yrs.) [[id number]] Influenza, seasonal, inject able Vital Signs Date [...] C - Chemistry sodium, serum 143 mmol/L 904-406 1291/06/19 potassium, serum 5.9 mmol/L 3.5-5.2 chloride, serum 105 mmol/L 98-107 carbon dioxide, venous blood 30.2 mmol/L 21.0-32 .0 blood glucose 189 mg/dL 65-110 calcium, serum 9.7 mg/dL 8.5-10.1 urea nitrogen, blood 37 mg/dL 7-18 creatinine, serum 2.11 mg/dL 0.55-1.30 hemoglobin A1C, blood, as % of total hemoglobin 8.2 % 4.3-6.0 Lab Report: CBC, Renal Panel - Chemistry sodium, serum 142 mmol/L 233-078 4469/08/11 potassium, serum 4.8 mmol/L 3.5-5.2 chloride, serum [...] Panel - Chemistry sodium, serum 143 mmol/L 991-810 6703/12/19 carbon dioxide, venous blood 32.5 mmol/L 21.0-32 .0 potassium, serum 4.9 mmol/L 3.5-5.2 chloride, serum 101 mmol/L 98-107 blood glucose 129 mg/dL 65-110 urea nitrogen, blood 18 mg/dL 7-18 creatinine, serum 1.79 mg/dL 0.55-1.30 alanine aminotransferase (SGPT), serum 34 U/L 12-78 aspartate aminotransferase (SGOT), serum 26 U/L 15-37 calcium, serum 8.9 mg/dL 8.5-10.1 bilirubin, serum, total 0.30 mg/dL 0.00-1.00 cholesterol, serum 214 mg/dL 947-520 1693/12/19 triglyceride, serum, fasting 351 mg/dL 30-200 HDL [...] 4.3-6.0 Encounters Code Encounter Date Provider Facility CPT-49613 Level 4 Est. Patient 14:22:31 CDT Baltazar Childers MD [facility] CPT-80234 Level 4 Est. Patient 15:44:38 CDT Shonna Parker APRN [facility] CPT-60984 Level 4 Est. Patient 11:34:17 CDT Baltazar Childers MD [facility] CPT-80964 Level 3 Est. Patient 16:40:40 CDT Baltazar Childers MD [facility] CPT-03402 Level 4 Est. Patient 10:41:24 CDT Baltazar Childers MD [facility] CPT-81394 Level 4 Est. Patient 16:01:48 CDT Baltazar Childers MD [facility] CPT-08942 Level 4 Est. Patient 16:54:07 PROGRAM SUPPORT ASSISTANT Baltazar Childers MD [facility] CPT-69580 Level 4 Est. Patient 15:42:12 CDT Baltazar Childers MD [facility] CPT-42890 Level 4 Est. Patient 11:29:55 CDT Baltazar Childers MD [facility] CPT-90304 Level 4 Est. Patient 14:15:19 CDT Baltazar Childers MD [facility] CPT-76930 Level 4 Est. Patient 12:20:13 CDT Baltazar Childers MD [facility] CPT-61842 Level 4 Est. Patient 14:52:45 PROGRAM SUPPORT ASSISTANT Baltazar Childers MD [facility] CPT-20124 Level 4 Est. Patient 14:18:34 PROGRAM SUPPORT ASSISTANT Baltazar Childers MD [facility] CPT-53955 Level 4 Est. Patient 15:18:29 CDT Baltazar Childers MD [facility] CPT-40435 Level 3 Est. Patient 12:45:34 CDT Baltazar Childers MD [facility] CPT-63327 Level 3 Est. Patient 10:10:11 CDT Baltazar Childers MD [facility] CPT-55041 Level 3 Est. Patient 14:07:50 CDT Baltazar Childers MD [facility] CPT-14473 Level 4 Est. Patient 12:26:10 PROGRAM SUPPORT ASSISTANT Baltazar Childers MD [facility] CPT-03482 Level 4 Est. Patient 14:45:38 CDT Baltazar Childers MD [facility] CPT-51737 Level 4 New Patient 12:30:48 CDT Baltazar hinton MD [facility] Procedures Code Procedure Name Date Entry Date Standard Desc ription CPT-63060 Venipuncture Draw Fee 12:04:12 CDT CPT-08511 Lipid - LAB USE ONLY 17:39:15 PROGRAM SUPPORT ASSISTANT 9 CPT-49611 HGBA1C - LAB USE ONLY 17:39:15 PROGRAM SUPPORT ASSISTANT CPT-18282 CMP - LAB USE ONLY 17:39:14 PROGRAM SUPPORT ASSISTANT CPT-86047 Venipuncture Draw Fee 17:39:14 PROGRAM SUPPORT ASSISTANT CPT-29794 First Vx - Ix admin via ID I M or jet injects without counseling by physician 16:55:17 PROGRAM SUPPORT ASSISTANT CPT-16372 Fluzone Quadrivalent Intramuscular Suspe nsion 0.5 ML 16:55:17 PROGRAM SUPPORT ASSISTANT CPT-78719 Renal Panel - LAB USE ONLY 17:39:20 CDT 201 10/31/07 CPT-89511 CBC - LAB USE ONLY 17:39:20 CDT CPT-44090 Venipuncture Draw Fee 17:39:20 CDT CPT-36948 Venipuncture Draw Fee 14:33:30 CDT CPT-29295 Renal Panel - LAB USE ONLY 14:33:30 CDT 201 10/31/07 CPT-35531 CBC - LAB USE ONLY 14:33:29 CDT CPT-09045 Venipuncture Draw Fee 14:50:21 PROGRAM SUPPORT ASSISTANT CPT-08698 Immunization Single Admin 17:35:35 CDT 2014 CPT-00981 Fluzone Quadrivalent preservative free ( >=3yrs.) 17:35:35 CDT CPT-97179 Venipuncture Draw Fee 12:10:27 PROGRAM SUPPORT ASSISTANT CPT-32147 Fluzone Quadrivalent Intramuscular Suspe nsion 0.5 ML 10:49:13 CDT CPT-52052 First Vx Component - Ix admi n via ID IM or jet inj without physician counseling 15:17:19 PROGRAM SUPPORT ASSISTANT CPT-91146 Pneumovax 23 15:17:19 PROGRAM SUPPORT ASSISTANT CPT-07999 Pneumovax 14:52:45 PROGRAM SUPPORT ASSISTANT CPT-44637 Venipuncture Draw Fee 14:06:30 PROGRAM SUPPORT ASSISTANT CPT-000 Give Appropriate Flu Vaccine 14:18:34 PROGRAM SUPPORT ASSISTANT 2 CPT-92913 Administration single or combination vac cine inc oral 14:46:00 PROGRAM SUPPORT ASSISTANT CPT-33559 Influenza split virus > age 3 14:46:00 PROGRAM SUPPORT ASSISTANT CPT-OV Office Visit 19:13:16 CDT CPT-25844 Zostavax 18:41:56 CDT CPT-49497 Administration single or combination vac cine inc oral 12:56:39 CDT CPT-83086 Zoster Vaccine (Zostavax) 12:56:39 CDT 2012 CPT-50436 Venipuncture Draw Fee 10:58:57 CDT CPT-48904 Sono pelvis non OB uterus ovaries cervix 17:45:04 CDT CPT-13247 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
--- OUTSIDE RECORDS SUMMARY | 2019-10-27 13:32 | XMS REPORT | Clinical Summary ---
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 Benign neoplasm of colon PERIPHERAL NEUROPATHY [...] gynecological examination Health screening V70.0 Active Baltazar Wayen Routine general medical examination at a health care facility Chronic pain syndrome 338.4 Active Baltazar Nickerson MD Chronic pain syndrome COLON POLYPS ICD-211.3 Inactive Lolis Barron Medication List Medication Instructions Start Date Stop Date Generic Name NDC Status Provider Patient Instruction TRUEPLUS LANCETS 33G MISC Test twice a day LANCET S 64792373741 Active Baltazar Childers MD Active TRUEDRAW LANCING DEVICE MISC Test twice a day L ANCET DEVICES 37243815044 Active Baltazar Childers MD Active TRUETRACK TEST STRP Test twice a day GLUCOSE BLOO D 41667545832 Active Baltazar Childers MD Active TRUETRACK BLOOD GLUCOSE W/DEVICE KIT Test twice a day BLOOD GLUCOSE MONITORING SUPPL 22431820424 Active Bella Suarez 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 HYDROCODONE-ACETAMINOPHEN 7.5-325 MG TABS Take 1 tab every 6-8 hour s PRN HYDROCODONE-ACETAMINOPHEN 01302972369 Active Baltazar Childers MD Active NORTRIPTYLINE HCL 50 MG CAPS 1 every night for neuropathy 4 NORTRIPTYLINE HCL 11551094837 Active Baltazar Childers MD Acti ve GABAPENTIN 300 MG CAPS 1 three times a day GABAPE NTIN 95683704874 Active Baltazar Childers MD Active GABAPENTIN 300 MG CAPS 1 po qd x 2 days, then 1 po BID x 2 d ays, then 1 po TID GABAPENTIN 49791609021 No Longer Active Baltazar silverman MD Active TRAMADOL HCL 50 MG TABS 1 twice a day as needed for pain TRAMADOL HCL 66184616596 Active Baltazar Childers MD Active NAPROXEN 500 MG TABS 1 tablet by mouth twice daily NAPROXEN 84596793111 No Longer Active Baltazar Childers MD Active PROAIR HFA 108 (90 BASE) MCG/ACT AERS 2 puffs four times a d ay as needed ALBUTEROL SULFATE 08866902625 Active Baltazar Childers MD Active DEPO-TESTOSTERONE 200 MG/ML OIL as directed RUFINO TOSTERONE CYPIONATE 23820576045 No Longer Active Baltazar Childers MD Active LIPITOR 20 MG TABS Take one by mouth daily in evening ATORVASTATIN CALCIUM 77605099129 No Longer Active Baltazar Childers MD Activ e CRESTOR 10 MG TABS 1 by mouth every day R OSUVASTATIN CALCIUM 50093324333 No Longer Active Baltazar Childers MD Activ e PHENTERMINE HCL 37.5 MG TABS Take one by mouth daily 2 PHENTERMINE HCL 69579149111 No Longer Active Baltazar Childers MD Activ e ROBAXIN-750 750 MG TABS Take one by mouth daily ME THOCARBAMOL 67097929874 Active Baltazar Childers MD Active TIZANIDINE HCL 4 MG TABS 1 daily as needed for muscle spasm 2011 TIZANIDINE HCL 20211509648 No Longer Active Dawna Salazar RN Active ONETOUCH ULTRA BLUE STRP Test twice a day GLUCO SE BLOOD 16407921523 Active Baltazar Childers MD Active [id number] 50-325-40 MG TABS 1 four time s a day as needed for heacache [id number] 06108754653 Active Baltazar Childers MD Active SUMATRIPTAN SUCCINATE 100 MG TABS 1 tablet by mouth at onset of migraine as needed SUMATRIPTAN SUCCINATE 63291530499 Active Baltazar barron MD Active LORATADINE 10 MG TABS Take one by mouth daily LORATADINE 18812902831 Active Baltazar Childers MD Active FUROSEMIDE 40 MG TABS Take one by mouth daily FUROSEMIDE 61131391194 Active Baltazar Childers MD Active LISINOPRIL 20 MG TABS Take one by mouth daily at bedtime LISINOPRIL 00010720822 Active Baltazar Childers MD Active OMEPRAZOLE 20 MG CPDR Take one by mouth daily OMEPRAZOLE 45147154268 Active Baltazar Childers MD Active HYDROXYZINE HCL 25 MG TABS Take one by mouth daily HYDROXYZINE HCL 77145716914 Active Baltazar Childers MD Active GLIPIZIDE 10 MG TABS 1 tablet by mouth twice daily GLIPIZIDE 60547480966 Active Baltazar Childers MD Active ALPRAZOLAM 1 MG TABS 1 tablet by mouth daily at bedtime for restles s leg ALPRAZOLAM 95508765230 Active Baltazar Childers MD Active METFORMIN HCL 1000 MG TABS Take one by mouth twice daily METFORMIN HCL 26366086128 Active Baltazar Childers MD Active TIZANIDINE HCL 4 MG TABS 1 daily as needed for muscle spasm 2011 TIZANIDINE HCL 4 MG TABS 907655 TIZANIDINE HCL Inactiv e PHENTERMINE HCL 37.5 MG TABS Take one by mouth daily 2 PHENTERMINE HCL 37.5 MG TABS 093509 PHENTERMINE HCL Inactive CRESTOR 10 MG TABS 1 by mouth every day C RESTOR 10 MG TABS ROSUVASTATIN CALCIUM Inactive LIPITOR 20 MG TABS Take one by mouth daily in evening LIPITOR 20 MG TABS 310049 ATORVASTATIN CALCIUM Inactive DEPO-TESTOSTERONE 200 MG/ML OIL as directed 8 DEPO-TESTOSTERONE 200 MG/ML OIL 221151 TESTOSTERONE CYPIONATE Inactive NAPROXEN 500 MG TABS 1 tablet by mouth twice daily 201 07/27/22 NAPROXEN 500 MG TABS 962253 NAPROXEN Inactive GABAPENTIN 300 MG CAPS 1 po qd x 2 days, then 1 po BID x 2 d ays, then 1 po TID GABAPENTIN 300 MG CAPS 914580 GABAPENTIN Inact amie Immunizations Vaccine Administration Date Value Standard Floyd cription pneumococcal immunization administered Pneumovax 23 [CVX33] pneumococcal polysaccharide vaccine, 23 valent Seasonal influenza vaccine, injectable, containing preservative, for > 3 years old (Afluria, FluLaval, Fluzone, Fluvirin, Fluarix, Agriflu(>= 18 yo)) Fluzone (>3 yrs.) [[id number]] Influenza, seasonal, inject able Seasonal influenza vaccine, injectable, containing preservative, for > 3 years old (Afluria, FluLaval, Fluzone, Fluvirin, Fluarix, Agriflu(>= 18 yo)) Fluzone (>3 yrs.) [[id number]] Influenza, seasonal, inject able Vital Signs Date [...] - Chem istry sodium, serum 140 mmol/L 219-567 9705/05/05 potassium, serum 4.9 mmol/L 3.5-5.2 chloride, serum [...] Panel - Chemistry sodium, serum 139 mmol/L 750-280 4470/01/20 potassium, serum 5.3 mmol/L 3.5-5.2 chloride, serum [...] mg/g mg/g{creat} 0-29 cholesterol, serum 319 mg/dL 718-929 4765/08/21 triglyceride, serum, fasting 546 mg/dL 30-200 HDL cholesterol, serum 39 mg/dL 32-96 LDL cholesterol, serum 167.00 mg/dL 5.00-130.00 hemoglobin A1C, blood, as % of total hemoglobin 7.7 % 4.3-6.0 sodium, serum 138 mmol/L 303-489 9681/08/21 potassium, serum 4.3 mmol/L 3.5-5.2 chloride, serum [...] 0-19 Encounters Code Encounter Date Provider Facility CPT-88380 Level 4 Est. Patient 11:29:55 CDT Baltazar Childers MD [facility] CPT-19592 Level 4 Est. Patient 14:15:19 CDT Baltazar Childers MD [facility] CPT-32853 Level 4 Est. Patient 12:20:13 CDT Baltazar Childers MD [facility] CPT-48708 Level 4 Est. Patient 14:52:45 FORESTRY PATROLMAN Baltazar Childers MD [facility] CPT-39982 Level 4 Est. Patient 14:18:34 FORESTRY PATROLMAN Baltazar Childers MD [facility] CPT-75756 Level 4 Est. Patient 15:18:29 CDT Baltazar Childers MD [facility] CPT-87689 Level 3 Est. Patient 12:45:34 CDT Baltazar Childers MD [facility] CPT-71713 Level 3 Est. Patient 10:10:11 CDT Baltazar Childers MD [facility] CPT-66574 Level 3 Est. Patient 14:07:50 CDT Baltazar Childers MD [facility] CPT-27302 Level 4 Est. Patient 12:26:10 FORESTRY PATROLMAN Baltazar Childers MD [facility] CPT-04954 Level 4 Est. Patient 14:45:38 CDT Baltazar Childers MD [facility] CPT-74353 Level 4 New Patient 12:30:48 CDT Baltazar hinton MD [facility] Procedures Code Procedure Name Date Entry Date Standard Desc ription CPT-83852 Venipuncture Draw Fee 12:10:27 FORESTRY PATROLMAN CPT-62710 Fluzone Quadrivalent Intramuscular Suspe nsion 0.5 ML 10:49:13 CDT CPT-30804 First Vx Component - Ix admi n via ID IM or jet inj without physician counseling 15:17:19 FORESTRY PATROLMAN CPT-35032 Pneumovax 15:17:19 FORESTRY PATROLMAN CPT-14835 Pneumovax 14:52:45 FORESTRY PATROLMAN CPT-57429 Venipuncture Draw Fee 14:06:30 FORESTRY PATROLMAN CPT-000 Give Appropriate Flu Vaccine 14:18:34 FORESTRY PATROLMAN 2 CPT-55133 Administration single or combination vac cine inc oral 14:46:00 FORESTRY PATROLMAN CPT-13298 Influenza split virus > age 3 14:46:00 FORESTRY PATROLMAN CPT-OV Office Visit 19:13:16 CDT CPT-66271 Zostavax 18:41:56 CDT CPT-07498 Administration single or combination vac cine inc oral 12:56:39 CDT CPT-81325 Zoster Vaccine (Zostavax) 12:56:39 CDT 2012 CPT-51810 Venipuncture Draw Fee 10:58:57 CDT CPT-74202 Sono pelvis non OB uterus ovaries cervix 17:45:04 CDT CPT-17148 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
--- OUTSIDE RECORDS SUMMARY | 2019-10-27 13:32 | XMS REPORT | Clinical Summary ---
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 Benign neoplasm of colon PERIPHERAL NEUROPATHY [...] atherosclerosis of unspecified type of vessel, [place] or graft OTH NONSPC ABN FINDNG [...] Generic Name NDC Status Provider Patient Instruction CELINA SOLOSTAR 300 UNIT/ML SC SOPN 10 units SC daily INSULIN GLARGINE 93335751078 Active Baltazar Childers MD Active NAPROXEN SODIUM 220 MG ORAL TABS 1 three times a day as needed 2 NAPROXEN SODIUM 17490412975 No Longer Active Baltazar Childers MD Active ATORVASTATIN CALCIUM 20 MG ORAL TABS Take 1 tab daily ATORVASTATIN CALCIUM 46975721801 Active KENDALL Juarez Active FUROSEMIDE 40 MG TABS Take one by mouth daily FUROSEMIDE 30572957008 Active Baltazar Childers MD Active LISINOPRIL 20 MG TABS Take one by mouth daily at bedtime LISINOPRIL 03436400220 Active Baltazar Childers MD Active ONETOUCH ULTRA BLUE STRP Test twice a day GLUCO SE BLOOD 20844705448 No Longer Active Baltazar Childers MD Active TRUEPLUS LANCETS 33G MISC Test twice a day LANCET S 22640024815 Active KENDALL Juarez Active TRUEDRAW LANCING DEVICE MISC Test twice a day L ANCET DEVICES 84600613436 Active Baltazar Childers MD Active TRUETRACK TEST STRP Test twice a day GLUCOSE BLOO D 74298015523 Active KENDALL Juarez Active TRUETRACK BLOOD GLUCOSE W/DEVICE KIT Test twice a day BLOOD GLUCOSE MONITORING SUPPL 22655933691 Active Baltazar Childers MD Activ e HYDROCODONE-ACETAMINOPHEN 7.5-325 MG TABS Take 1 tab every 6-8 hour s PRN HYDROCODONE-ACETAMINOPHEN 04830158577 Active Baltazar Childers MD Active NORTRIPTYLINE HCL 50 MG CAPS 1 every night for neuropathy 4 NORTRIPTYLINE HCL 32397766259 Active Baltazar Childers MD Acti ve GABAPENTIN 300 MG CAPS 1 three times a day GABAPE NTIN 68441696210 Active Baltazar Childers MD Active GABAPENTIN 300 MG CAPS 1 po qd x 2 days, then 1 po BID x 2 d ays, then 1 po TID GABAPENTIN 27374133677 No Longer Active Baltazar silverman MD Active TRAMADOL HCL 50 MG TABS 1 twice a day as needed for pain TRAMADOL HCL 90356258386 Active Baltazar Childers MD Active NAPROXEN 500 MG TABS 1 tablet by mouth twice daily NAPROXEN 42039573378 No Longer Active Baltazar Childers MD Active PROAIR HFA 108 (90 BASE) MCG/ACT AERS 2 puffs four times a d ay as needed ALBUTEROL SULFATE 02309517658 Active KENDALL Juarez Active DEPO-TESTOSTERONE 200 MG/ML OIL as directed RUFINO TOSTERONE CYPIONATE 22411900133 No Longer Active Baltazar Childers MD Active LIPITOR 20 MG TABS Take one by mouth daily in evening ATORVASTATIN CALCIUM 48667351364 No Longer Active Baltazar Childers MD Activ e CRESTOR 10 MG TABS 1 by mouth every day R OSUVASTATIN CALCIUM 08860050346 No Longer Active Baltazar Childers MD Activ e PHENTERMINE HCL 37.5 MG TABS Take one by mouth daily 2 PHENTERMINE HCL 24373369032 No Longer Active Baltazar Childers MD Activ e ROBAXIN-750 750 MG TABS Take one by mouth daily ME THOCARBAMOL 91248232848 Active Baltazar Childers MD Active TIZANIDINE HCL 4 MG TABS 1 daily as needed for muscle spasm 2011 TIZANIDINE HCL 21776674513 No Longer Active Dawna Salazar RN Active [id number] 50-325-40 MG TABS 1 four time s a day as needed for heacache [id number] 51127658138 Active Baltazar Childers MD Active SUMATRIPTAN SUCCINATE 100 MG TABS 1 tablet by mouth at onset of migraine as needed SUMATRIPTAN SUCCINATE 99005367868 Active KENDALL Juarez Active LORATADINE 10 MG TABS Take one by mouth daily LORATADINE 25147213676 Active Baltazar Childers MD Active OMEPRAZOLE 20 MG CPDR Take one by mouth daily OMEPRAZOLE 82842726187 Active Argentina Lyons Active HYDROXYZINE HCL 25 MG TABS Take one by mouth daily HYDROXYZINE HCL 36360719915 Active Baltazar Childers MD Active GLIPIZIDE 10 MG TABS 1 tablet by mouth twice daily GLIPIZIDE 63874438253 Active Baltazar Childers MD Active ALPRAZOLAM 1 MG TABS 1 tablet by mouth daily at bedtime for restles s leg ALPRAZOLAM 26857052719 Active Baltazar Childers MD Active METFORMIN HCL 1000 MG TABS Take one by mouth twice daily METFORMIN HCL 48362360353 Active Baltazar Childers MD Active TIZANIDINE HCL 4 MG TABS 1 daily as needed for muscle spasm 2011 TIZANIDINE HCL 4 MG TABS 259384 TIZANIDINE HCL Inactiv e PHENTERMINE HCL 37.5 MG TABS Take one by mouth daily PHENTERMINE HCL 37.5 MG TABS 875487 PHENTERMINE HCL Inactive CRESTOR 10 MG TABS 1 by mouth every day C RESTOR 10 MG TABS 722080 ROSUVASTATIN CALCIUM Inactive LIPITOR 20 MG TABS Take one by mouth daily in evening LIPITOR 20 MG TABS 514870 ATORVASTATIN CALCIUM Inactive DEPO-TESTOSTERONE 200 MG/ML OIL as directed 8 DEPO-TESTOSTERONE 200 MG/ML OIL 150259 TESTOSTERONE CYPIONATE Inactive NAPROXEN 500 MG TABS 1 tablet by mouth twice daily 201 07/27/22 NAPROXEN 500 MG TABS 251583 NAPROXEN Inactive GABAPENTIN 300 MG CAPS 1 po qd x 2 days, then 1 po BID x 2 d ays, then 1 po TID GABAPENTIN 300 MG CAPS 837901 GABAPENTIN Inact amie ONETOUCH ULTRA BLUE STRP Test twice a day ONETOUCH ULTRA BLUE STRP GLUCOSE BLOOD Inactive NAPROXEN SODIUM 220 MG ORAL TABS 1 three times a day as needed 2 NAPROXEN SODIUM 220 MG ORAL TABS 434273 NAPROXEN SODIUM Inactive Immunizations Vaccine Administration Date Value Standard Floyd cription pneumococcal immunization administered Pneumovax 23 [CVX33] pneumococcal polysaccharide vaccine, 23 valent Seasonal influenza vaccine, injectable, containing preservative, for > 3 years old (Afluria, FluLaval, Fluzone, Fluvirin, Fluarix, Agriflu(>= 18 yo)) Fluzone (>3 yrs.) [[id number]] Influenza, seasonal, inject able Seasonal influenza vaccine, injectable, containing preservative, for > 3 years old (Afluria, FluLaval, Fluzone, Fluvirin, Fluarix, Agriflu(>= 18 yo)) Fluzone (>3 yrs.) [[id number]] Influenza, seasonal, inject able Vital Signs Date [...] C - Chemistry sodium, serum 139 mmol/L 615-169 1441/07/07 potassium, serum 4.5 mmol/L 3.5-5.2 chloride, serum 99 mmol/L 98-107 carbon dioxide, venous blood 33.8 mmol/L 21.0-32 .0 blood glucose 209 mg/dL 65-110 calcium, serum 9.8 mg/dL 8.5-10.1 urea nitrogen, blood 14 mg/dL 7-18 creatinine, serum 1.89 mg/dL 0.55-1.30 hemoglobin A1C, blood, as % of total hemoglobin 8.3 % 4.3-6.0 Lab Report: CBC, HGBA1C, Renal Panel - C hemistry calcium, serum 9.4 mg/dL 8.5-10.1 hemoglobin A1C, blood, as % of total hemoglobin 7.9 % 4.3-6.0 sodium, serum 139 mmol/L 185-515 7175/02/04 potassium, serum 5.4 mmol/L 3.5-5.2 chloride, serum 99 mmol/L 98-107 carbon dioxide, venous blood 36.7 mmol/L 21.0-32 .0 creatinine, serum 2.02 mg/dL 0.55-1.30 blood glucose 181 mg/dL 65-110 urea nitrogen, blood 24 mg/dL 7-18 Lab Report: CBC, HGBA1C, Renal Panel - [...] Comp. Metabolic Panel, Lipid Panel - Chemistry potassium, serum 5.7 mmol/L 3.5-5.2 carbon dioxide, venous blood 32.4 mmol/L 21.0-32 .0 sodium, serum 138 mmol/L 993-086 1458/11/23 chloride, serum 98 mmol/L 98-107 blood glucose 136 mg/dL 65-110 urea nitrogen, blood 18 mg/dL 7-18 creatinine, serum 1.71 mg/dL 0.55-1.30 alanine aminotransferase (SGPT), serum 71 U/L 12-78 aspartate aminotransferase (SGOT), serum 34 U/L 15-37 calcium, serum 9.4 mg/dL 8.5-10.1 bilirubin, serum, total 0.40 mg/dL 0.00-1.00 cholesterol, serum 405 mg/dL 730-246 1102/11/23 triglyceride, serum, fasting 709 mg/dL 30-200 HDL [...] mg/dL Encounters Code Encounter Date Provider Facility CPT-98744 Level 3 Est. Patient 16:40:40 CDT Baltazar Childers MD [facility] CPT-87063 Level 4 Est. Patient 10:41:24 CDT Baltazar Childers MD [facility]-92361 Level 4 Est. Patient 16:01:48 CDT Baltazar Childers MD [facility]-15049 Level 4 Est. Patient 16:54:07 CLINICAL EDUCATION COORDINATOR Baltazar Childers MD [facility] CPT-40115 Level 4 Est. Patient 15:42:12 CDT Baltazar Childers MD [facility] CPT-30793 Level 4 Est. Patient 11:29:55 CDT Baltazar Childers MD [facility] CPT-25735 Level 4 Est. Patient 14:15:19 CDT Baltazar Childers MD [facility] CPT-03598 Level 4 Est. Patient 12:20:13 CDT Baltazar Childers MD [facility] CPT-94212 Level 4 Est. Patient 14:52:45 CLINICAL EDUCATION COORDINATOR Baltazar Childers MD [facility] CPT-54946 Level 4 Est. Patient 14:18:34 CLINICAL EDUCATION COORDINATOR Baltazar Childers MD [facility] CPT-03677 Level 4 Est. Patient 15:18:29 CDT Baltazar Childers MD [facility] CPT-58027 Level 3 Est. Patient 12:45:34 CDT Baltazar Childers MD [facility] CPT-25332 Level 3 Est. Patient 10:10:11 CDT Baltazar Childers MD [facility] CPT-11950 Level 3 Est. Patient 14:07:50 CDT Baltazar Childers MD [facility] CPT-56061 Level 4 Est. Patient 12:26:10 CLINICAL EDUCATION COORDINATOR Baltazar Childers MD [facility] CPT-42650 Level 4 Est. Patient 14:45:38 CDT Baltazar Childers MD [facility] CPT-95613 Level 4 New Patient 12:30:48 CDT Baltazar hinton MD [facility] Procedures Code Procedure Name Date Entry Date Standard Desc ription CPT-30135 Venipuncture Draw Fee 14:50:21 CLINICAL EDUCATION COORDINATOR CPT-93312 Immunization Single Admin 17:35:35 CDT 2014 CPT-93919 Fluzone Quadrivalent preservative free ( >=3yrs.) 17:35:35 CDT CPT-87787 Venipuncture Draw Fee 12:10:27 CLINICAL EDUCATION COORDINATOR CPT-66194 Fluzone Quadrivalent Intramuscular Suspe nsion 0.5 ML 10:49:13 CDT CPT-53395 First Vx Component - Ix admi n via ID IM or jet inj without physician counseling 15:17:19 CLINICAL EDUCATION COORDINATOR CPT-87469 Pneumovax 23 15:17:19 CLINICAL EDUCATION COORDINATOR CPT-03552 Pneumovax 14:52:45 CLINICAL EDUCATION COORDINATOR CPT-66960 Venipuncture Draw Fee 14:06:30 CLINICAL EDUCATION COORDINATOR CPT-000 Give Appropriate Flu Vaccine 14:18:34 CLINICAL EDUCATION COORDINATOR 2 CPT-50685 Administration single or combination vac cine inc oral 14:46:00 CLINICAL EDUCATION COORDINATOR CPT-49686 Influenza split virus > age 3 14:46:00 CLINICAL EDUCATION COORDINATOR CPT-OV Office Visit 19:13:16 CDT CPT-15377 Zostavax 18:41:56 CDT CPT-84097 Administration single or combination vac cine inc oral 12:56:39 CDT CPT-97484 Zoster Vaccine (Zostavax) 12:56:39 CDT 2012 CPT-47950 Venipuncture Draw Fee 10:58:57 CDT CPT-11182 Sono pelvis non OB uterus ovaries cervix 17:45:04 CDT CPT-94057 Sono retroperitoneal complete kidneys an d bladder 17:14:36 CDT CPT-OV Office Visit 14:59:38 CLINICAL EDUCATION COORDINATOR CPT-J1070 Depo Testosterone 100 mg 14:50:13 CDT 03/05 CPT-14282 Abx/Therapy Injection 14:50:13 CDT CPT-68111 Administration single or combination vac cine inc oral 14:34:43 CDT CPT-92115 Influenza split virus > age 3 14:34:43 CDT CPT-J1070 Depo Testosterone 100 mg 17:37:13 CDT 01/11 CPT-38730 Abx/Therapy Injection 17:37:13 CDT CPT-75314 Venipuncture Draw Fee 16:30:13 CDT CPT-05522 Venipuncture Draw Fee 16:29:43 CDT CPT-J1070 Depo Testosterone 100 mg 14:45:38 CDT 01/11
--- OUTSIDE RECORDS SUMMARY | 2019-10-27 13:32 | XMS REPORT | Clinical Summary ---
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 Benign neoplasm of colon PERIPHERAL NEUROPATHY 356.9 [...] ronary atherosclerosis of unspecified type of vessel, [place] or graft OTH NONSPC ABN FINDNG RAD&OTH [...] a day to coat the stomach SUCRALFATE 13008038268 Active Baltazar Childers MD Active PEN NEEDLES 31G X 6 MM MISC use 1 daily INSULIN PEN NEEDLE 18310110980 Active Martita Herbert RMA Active TOUJEO SOLOSTAR 300 UNIT/ML SC SOPN 10 units SC daily INSULIN GLARGINE 60498358871 No Longer Active Martita Herbert RMA Active LANTUS SOLOSTAR 100 UNIT/ML SC SOPN 10 units SC daily INSULIN GLARGINE 18433877245 Active KENDALL Juarez Active NAPROXEN SODIUM 220 MG ORAL TABS 1 three times a day as needed 2 NAPROXEN SODIUM 60553000388 No Longer Active Baltazar Childers MD Active ATORVASTATIN CALCIUM 20 MG ORAL TABS Take 1 tab daily ATORVASTATIN CALCIUM 42934000364 Active Baltazar Childers MD Active FUROSEMIDE 40 MG TABS Take one by mouth daily FUROSEMIDE 97531097819 Active Baltazar Childers MD Active LISINOPRIL 20 MG TABS Take one by mouth daily at bedtime LISINOPRIL 81409991416 Active Baltazar Childers MD Active ONETOUCH ULTRA BLUE STRP Test twice a day GLUCO SE BLOOD 29987759852 No Longer Active Baltazar Childers MD Active TRUEPLUS LANCETS 33G MISC Test twice a day LANCET S 87871901425 Active KENDALL Juarez Active TRUEDRAW LANCING DEVICE MISC Test twice a day L ANCET DEVICES 44824816298 Active Baltazar Childers MD Active TRUETRACK TEST STRP Test twice a day GLUCOSE BLOO D 41846686973 Active KENDALL Juarez Active TRUETRACK BLOOD GLUCOSE W/DEVICE KIT Test twice a day BLOOD GLUCOSE MONITORING SUPPL 24606316726 Active Baltazar Childers MD Activ e HYDROCODONE-ACETAMINOPHEN 7.5-325 MG TABS Take 1 tab every 6-8 hour s PRN HYDROCODONE-ACETAMINOPHEN 71614755806 Active Baltazar Childers MD Active NORTRIPTYLINE HCL 50 MG CAPS 1 every night for neuropathy 4 NORTRIPTYLINE HCL 93921840706 Active KENDALL Juarez Acti ve GABAPENTIN 300 MG CAPS 1 three times a day GABAPE NTIN 41594329827 Active Baltazar Childers MD Active GABAPENTIN 300 MG CAPS 1 po qd x 2 days, then 1 po BID x 2 d ays, then 1 po TID GABAPENTIN 88659240160 No Longer Active Baltazar silverman MD Active TRAMADOL HCL 50 MG TABS 1 twice a day as needed for pain TRAMADOL HCL 92399873505 Active Baltazar Childers MD Active NAPROXEN 500 MG TABS 1 tablet by mouth twice daily NAPROXEN 36866941889 No Longer Active Baltazar Childers MD Active PROAIR HFA 108 (90 BASE) MCG/ACT AERS 2 puffs four times a d ay as needed ALBUTEROL SULFATE 55145198191 Active Baltazar Childers MD Active DEPO-TESTOSTERONE 200 MG/ML OIL as directed RUFINO TOSTERONE CYPIONATE 85360092752 No Longer Active Baltazar Childers MD Active LIPITOR 20 MG TABS Take one by mouth daily in evening ATORVASTATIN CALCIUM 73021886679 No Longer Active Baltazar Childers MD Activ e CRESTOR 10 MG TABS 1 by mouth every day R OSUVASTATIN CALCIUM 29191810859 No Longer Active Baltazar Childers MD Activ e PHENTERMINE HCL 37.5 MG TABS Take one by mouth daily 2 PHENTERMINE HCL 37807048013 No Longer Active Baltazar Childers MD Activ e ROBAXIN-750 750 MG TABS Take one by mouth daily ME THOCARBAMOL 20690491892 Active Baltazar Childers MD Active TIZANIDINE HCL 4 MG TABS 1 daily as needed for muscle spasm 2011 TIZANIDINE HCL 69067834172 No Longer Active Dawna Salazar RN Active [id number] 50-325-40 MG TABS 1 four time s a day as needed for heacache [id number] 64308832885 Active Baltazar Childers MD Active SUMATRIPTAN SUCCINATE 100 MG TABS 1 tablet by mouth at onset of migraine as needed SUMATRIPTAN SUCCINATE 04005836217 Active Bella STEPHEN RN Active LORATADINE 10 MG TABS Take one by mouth daily LORATADINE 46594007303 Active Baltazar Childers MD Active OMEPRAZOLE 20 MG CPDR Take one by mouth daily OMEPRAZOLE 95808679262 Active Crystal Lyons Active HYDROXYZINE HCL 25 MG TABS Take one by mouth daily HYDROXYZINE HCL 53592378616 Active Baltazar Childers MD Active GLIPIZIDE 10 MG TABS 1 tablet by mouth twice daily GLIPIZIDE 08626548841 Active CÉSAR JuarezBetsey Active ALPRAZOLAM 1 MG TABS 1 tablet by mouth daily at bedtime for restles s leg ALPRAZOLAM 41361571183 Active Baltazar Childers MD Active METFORMIN HCL 1000 MG TABS Take one by mouth twice daily METFORMIN HCL 77970864523 Active Baltazar Childers MD Active TIZANIDINE HCL 4 MG TABS 1 daily as needed for muscle spasm 2011 TIZANIDINE HCL 4 MG TABS 559557 TIZANIDINE HCL Inactiv e PHENTERMINE HCL 37.5 MG TABS Take one by mouth daily 2 PHENTERMINE HCL 37.5 MG TABS 160097 PHENTERMINE HCL Inactive CRESTOR 10 MG TABS 1 by mouth every day C RESTOR 10 MG TABS 142281 ROSUVASTATIN CALCIUM Inactive LIPITOR 20 MG TABS Take one by mouth daily in evening LIPITOR 20 MG TABS 478356 ATORVASTATIN CALCIUM Inactive DEPO-TESTOSTERONE 200 MG/ML OIL as directed 8 DEPO-TESTOSTERONE 200 MG/ML OIL 331370 TESTOSTERONE CYPIONATE Inactive NAPROXEN 500 MG TABS 1 tablet by mouth twice daily 201 07/27/22 NAPROXEN 500 MG TABS 237291 NAPROXEN Inactive GABAPENTIN 300 MG CAPS 1 po qd x 2 days, then 1 po BID x 2 d ays, then 1 po TID GABAPENTIN 300 MG CAPS 306550 GABAPENTIN Inact amie ONETOUCH ULTRA BLUE STRP Test twice a day ONETOUCH ULTRA BLUE STRP GLUCOSE BLOOD Inactive NAPROXEN SODIUM 220 MG ORAL TABS 1 three times a day as needed 2 NAPROXEN SODIUM 220 MG ORAL TABS 033530 NAPROXEN SODIUM Inactive TOUJEO SOLOSTAR 300 UNIT/ML [...] Fluarix, Agriflu(>= 18 yo)) Fluzone (>3 yrs.) [IEN918] Influenza, seasonal, inject able Seasonal influenza vaccine, injectable, containing preservative, for > 3 years old (Afluria, FluLaval, Fluzone, Fluvirin, Fluarix, Agriflu(>= 18 yo)) Fluzone (>3 yrs.) [[id number]] Influenza, seasonal, inject able Vital Signs Date [...] C - Chemistry sodium, serum 139 mmol/L 838-121 8956/07/07 potassium, serum 4.5 mmol/L 3.5-5.2 chloride, serum [...] 7.9 % 4.3-6.0 sodium, serum 139 mmol/L 916-478 1887/02/04 potassium, serum 5.4 mmol/L 3.5-5.2 chloride, serum [...] Panel - Chemistry sodium, serum 138 mmol/L 245-256 4054/11/23 carbon dioxide, venous blood 32.4 mmol/L 21.0-32 .0 potassium, serum 5.7 mmol/L 3.5-5.2 chloride, serum 98 mmol/L 98-107 blood glucose 136 mg/dL 65-110 urea nitrogen, blood 18 mg/dL 7-18 creatinine, serum 1.71 mg/dL 0.55-1.30 alanine aminotransferase (SGPT), serum 71 U/L 12-78 aspartate aminotransferase (SGOT), serum 34 U/L 15-37 calcium, serum 9.4 mg/dL 8.5-10.1 bilirubin, serum, total 0.40 mg/dL 0.00-1.00 cholesterol, serum 405 mg/dL 394-494 6075/11/23 triglyceride, serum, fasting 709 mg/dL 30-200 HDL [...] Panel - Chemistry sodium, serum 141 mmol/L 385-915 3195/08/08 potassium, serum 4.9 mmol/L 3.5-5.2 chloride, serum [...] mg/dL Encounters Code Encounter Date Provider Facility CPT-66068 Level 4 Est. Patient 11:34:17 CDT Baltazar Childers MD [facility] CPT-62903 Level 3 Est. Patient 16:40:40 CDT Baltazar Childers MD [facility] CPT-05356 Level 4 Est. Patient 10:41:24 CDT Baltazar Childers MD [facility] CPT-37528 Level 4 Est. Patient 16:01:48 CDT Baltazar Childers MD [facility] CPT-04766 Level 4 Est. Patient 16:54:07 ASSOCIATE DIRECTOR QA Baltazar Childers MD [facility] CPT-07839 Level 4 Est. Patient 15:42:12 CDT Baltazar Childers MD [facility] CPT-42194 Level 4 Est. Patient 11:29:55 CDT Baltazar Childers MD [facility] CPT-92891 Level 4 Est. Patient 14:15:19 CDT Baltazar Childers MD [facility] CPT-59449 Level 4 Est. Patient 12:20:13 CDT Baltazar Childers MD [facility] CPT-58446 Level 4 Est. Patient 14:52:45 ASSOCIATE DIRECTOR QA Baltazar Childers MD [facility] CPT-59885 Level 4 Est. Patient 14:18:34 ASSOCIATE DIRECTOR QA Baltazar Childers MD [facility] CPT-46679 Level 4 Est. Patient 15:18:29 CDT Baltazar Childers MD [facility] CPT-42786 Level 3 Est. Patient 12:45:34 CDT Baltazar Childers MD [facility] CPT-58616 Level 3 Est. Patient 10:10:11 CDT Baltazar Childers MD [facility] CPT-27262 Level 3 Est. Patient 14:07:50 CDT Baltazar Childers MD [facility] CPT-58053 Level 4 Est. Patient 12:26:10 ASSOCIATE DIRECTOR QA Baltazar Childers MD [facility] CPT-13035 Level 4 Est. Patient 14:45:38 CDT Baltazar Childers MD [facility] CPT-43355 Level 4 New Patient 12:30:48 CDT Baltazar hinton MD [facility] Procedures Code Procedure Name Date Entry Date Standard Desc ription CPT-94707 Renal Panel - LAB USE ONLY 17:39:20 CDT 201 10/31/07 CPT-20204 CBC - LAB USE ONLY 17:39:20 CDT CPT-27664 Venipuncture Draw Fee 17:39:20 CDT CPT-38963 Venipuncture Draw Fee 14:33:30 CDT CPT-38485 Renal Panel - LAB USE ONLY 14:33:30 CDT 201 10/31/07 CPT-87936 CBC - LAB USE ONLY 14:33:29 CDT CPT-24547 Venipuncture Draw Fee 14:50:21 ASSOCIATE DIRECTOR QA CPT-82173 Immunization Single Admin 17:35:35 CDT 2014 CPT-37457 Fluzone Quadrivalent preservative free ( >=3yrs.) 17:35:35 CDT CPT-03062 Venipuncture Draw Fee 12:10:27 ASSOCIATE DIRECTOR QA CPT-53059 Fluzone Quadrivalent Intramuscular Suspe nsion 0.5 ML 10:49:13 CDT CPT-61830 First Vx Component - Ix admi n via ID IM or jet inj without physician counseling 15:17:19 ASSOCIATE DIRECTOR QA CPT-81312 Pneumovax 15:17:19 ASSOCIATE DIRECTOR QA CPT-15795 Pneumovax 14:52:45 ASSOCIATE DIRECTOR QA CPT-45806 Venipuncture Draw Fee 14:06:30 ASSOCIATE DIRECTOR QA CPT-000 Give Appropriate Flu Vaccine 14:18:34 ASSOCIATE DIRECTOR QA 2 CPT-01975 Administration single or combination vac cine inc oral 14:46:00 ASSOCIATE DIRECTOR QA CPT-10552 Influenza split virus > age 3 14:46:00 ASSOCIATE DIRECTOR QA CPT-OV Office Visit 19:13:16 CDT CPT-60609 Zostavax 18:41:56 CDT CPT-49894 Administration single or combination vac cine inc oral 12:56:39 CDT CPT-20815 Zoster Vaccine (Zostavax) 12:56:39 CDT 2012 CPT-03073 Venipuncture Draw Fee 10:58:57 CDT CPT-57648 Sono pelvis non OB uterus ovaries cervix 17:45:04 CDT CPT-96651 Sono retroperitoneal complete kidneys an d bladder 17:14:36 CDT CPT-OV Office Visit 14:59:38 ASSOCIATE DIRECTOR QA CPT-J1070 Depo Testosterone 100 mg 14:50:13 CDT 03/05 CPT-86806 Abx/Therapy Injection 14:50:13 CDT CPT-20052 Administration single or combination vac cine inc oral 14:34:43 CDT CPT-54794 Influenza split virus > age 3 14:34:43 CDT CPT-J1070 Depo Testosterone 100 mg 17:37:13 CDT 01/11 CPT-55047 Abx/Therapy Injection 17:37:13 CDT CPT-39995 Venipuncture Draw Fee 16:30:13 CDT CPT-04330 Venipuncture Draw Fee 16:29:43 CDT CPT-J1070 Depo Testosterone 100 mg 14:45:38 CDT 01/11
--- OUTSIDE RECORDS SUMMARY | 2019-10-27 13:33 | XMS REPORT | Clinical Summary ---
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 MANAGER Benign neoplasm of colon PERIPHERAL NEUROPATHY [...] day to coat the stomach 2015 SUCRALFATE [id number] No Longer Active Baltazar Childers MD Active PEN NEEDLES 31G X 6 MM MISC use 1 daily INSULIN PEN NEEDLE 86253807399 Active Bella Suarez GRAPHIC MANAGER Active TOUJEO SOLOSTAR 300 UNIT/ML SC SOPN 10 units SC daily INSULIN GLARGINE 85274489719 No Longer Active Martita Godinez RMA Active LANTUS SOLOSTAR 100 UNIT/ML SC SOPN 10 units SC daily INSULIN GLARGINE 99273901418 Active Baltazar Childers MD Active NAPROXEN SODIUM 220 MG ORAL TABS 1 three times a day as needed 2 NAPROXEN SODIUM 62720970998 No Longer Active Baltazar Childers MD Active ATORVASTATIN CALCIUM 20 MG ORAL TABS Take 1 tab daily ATORVASTATIN CALCIUM 46954207496 Active Baltazar Childers MD Active FUROSEMIDE 40 MG TABS Take one by mouth daily FUROSEMIDE 15182847815 Active Baltazar Childers MD Active LISINOPRIL 20 MG TABS Take one by mouth daily at bedtime LISINOPRIL 14815675076 Active Baltazar Childers MD Active ONETOUCH ULTRA BLUE STRP Test twice a day GLUCO SE BLOOD 23379346667 No Longer Active Baltazar Childers MD Active TRUEPLUS LANCETS 33G MISC Test twice a day LANCET S 27668777416 Active KENDALL Juarez Active TRUEDRAW LANCING DEVICE MISC Test twice a day L ANCET DEVICES 42826038126 Active Baltazar Childers MD Active TRUETRACK TEST STRP Test twice a day GLUCOSE BLOO D 33637394321 Active KENDALL Juarez Active TRUETRACK BLOOD GLUCOSE W/DEVICE KIT Test twice a day BLOOD GLUCOSE MONITORING SUPPL 78611854186 Active Baltazar Childers MD Activ e HYDROCODONE-ACETAMINOPHEN 7.5-325 MG TABS Take 1 tab every 6-8 hour s PRN HYDROCODONE-ACETAMINOPHEN 65421864456 Active Baltazar Childers MD Active NORTRIPTYLINE HCL 50 MG CAPS 1 every night for neuropathy 4 NORTRIPTYLINE HCL 78758280254 Active Baltazar Childers MD Acti ve GABAPENTIN 300 MG CAPS 1 three times a day GABAPE NTIN 18819563758 Active Baltazar Childers MD Active GABAPENTIN 300 MG CAPS 1 po qd x 2 days, then 1 po BID x 2 d ays, then 1 po TID GABAPENTIN 15055751419 No Longer Active Baltazar silverman MD Active TRAMADOL HCL 50 MG TABS 1 twice a day as needed for pain TRAMADOL HCL 50169891975 Active Baltazar Childers MD Active NAPROXEN 500 MG TABS 1 tablet by mouth twice daily NAPROXEN 32235146098 No Longer Active Baltazar Childers MD Active PROAIR HFA 108 (90 BASE) MCG/ACT AERS 2 puffs four times a d ay as needed ALBUTEROL SULFATE 95586339795 Active KENDALL Juarez Active DEPO-TESTOSTERONE 200 MG/ML OIL as directed RUFINO TOSTERONE CYPIONATE 47706662959 No Longer Active Baltazar Childers MD Active LIPITOR 20 MG TABS Take one by mouth daily in evening ATORVASTATIN CALCIUM 10819165028 No Longer Active Baltazar Childers MD Activ e CRESTOR 10 MG TABS 1 by mouth every day R OSUVASTATIN CALCIUM 57589591796 No Longer Active Baltazar Childers MD Activ e PHENTERMINE HCL 37.5 MG TABS Take one by mouth daily 2 PHENTERMINE HCL 41053820841 No Longer Active Baltazar Childers MD Activ e ROBAXIN-750 750 MG TABS Take one by mouth daily ME THOCARBAMOL 64618682550 Active Baltazar Childers MD Active TIZANIDINE HCL 4 MG TABS 1 daily as needed for muscle spasm 2011 TIZANIDINE HCL 22627072489 No Longer Active Dawna Salazar RN Active [id number] 50-325-40 MG TABS 1 four time s a day as needed for heacache [id number] 62645572243 Active Baltazar Childers MD Active SUMATRIPTAN SUCCINATE 100 MG TABS 1 tablet by mouth at onset of migraine as needed SUMATRIPTAN SUCCINATE 33811561781 Active Baltazar bynum MD Active LORATADINE 10 MG TABS Take one by mouth daily LORATADINE 01756253918 Active Baltazar Childers MD Active OMEPRAZOLE 20 MG CPDR Take one by mouth daily OMEPRAZOLE 68909308967 Active Baltazar Childers MD Active HYDROXYZINE HCL 25 MG TABS Take one by mouth daily HYDROXYZINE HCL 99373062542 Active Baltazar Childers MD Active GLIPIZIDE 10 MG TABS 1 tablet by mouth twice daily GLIPIZIDE 31887540841 Active Baltazar Childers MD Active ALPRAZOLAM 1 MG TABS 1 tablet by mouth daily at bedtime for restles s leg ALPRAZOLAM 89251095476 Active Baltazar Childers MD Active METFORMIN HCL 1000 MG TABS Take one by mouth twice daily METFORMIN HCL 09998741756 Active Baltazar Childers MD Active TIZANIDINE HCL 4 MG TABS 1 daily as needed for muscle spasm 2011 TIZANIDINE HCL 4 MG TABS 536787 TIZANIDINE HCL Inactiv e PHENTERMINE HCL 37.5 MG TABS Take one by mouth daily 2 PHENTERMINE HCL 37.5 MG TABS 628077 PHENTERMINE HCL Inactive CRESTOR 10 MG TABS 1 by mouth every day C RESTOR 10 MG TABS 976037 ROSUVASTATIN CALCIUM Inactive LIPITOR 20 MG TABS Take one by mouth daily in evening LIPITOR 20 MG TABS 812774 ATORVASTATIN CALCIUM Inactive DEPO-TESTOSTERONE 200 MG/ML OIL as directed 8 DEPO-TESTOSTERONE 200 MG/ML OIL 231369 TESTOSTERONE CYPIONATE Inactive NAPROXEN 500 MG TABS 1 tablet by mouth twice daily 201 07/27/22 NAPROXEN 500 MG TABS 624659 NAPROXEN Inactive GABAPENTIN 300 MG CAPS 1 po qd x 2 days, then 1 po BID x 2 d ays, then 1 po TID GABAPENTIN 300 MG CAPS 657522 GABAPENTIN Inact amie ONETOUCH ULTRA BLUE STRP Test twice a day ONETOUCH ULTRA BLUE STRP GLUCOSE BLOOD Inactive NAPROXEN SODIUM 220 MG ORAL TABS 1 three times a day as needed 2 NAPROXEN SODIUM 220 MG ORAL TABS 533469 NAPROXEN SODIUM Inactive TOUJEO SOLOSTAR 300 UNIT/ML SC SOPN 10 units SC daily TOUJEO SOLOSTAR 300 UNIT/ML SC SOPN INSULIN GLARGINE Inac tive SUCRALFATE 1 GM TABS 1 four times a day to coat the stomach 2015 SUCRALFATE 1 GM TABS 539110 SUCRALFATE Inactive Immunizations Vaccine Administration Date Value Standard Floyd cription pneumococcal immunization administered Pneumovax 23 [CVX33] pneumococcal polysaccharide vaccine, 23 valent Seasonal influenza vaccine, injectable, containing preservative, for > 3 years old (Afluria, FluLaval, Fluzone, Fluvirin, Fluarix, Agriflu(>= 18 yo)) Fluzone (>3 yrs.) [[id number]] Influenza, seasonal, inject able Seasonal influenza vaccine, injectable, containing preservative, for > 3 years old (Afluria, FluLaval, Fluzone, Fluvirin, Fluarix, Agriflu(>= 18 yo)) Fluzone (>3 yrs.) [KXQ492] Influenza, seasonal, inject able Vital Signs Date Name Value Unit Range Description blood pressure, diastolic - 8462-4 81 mm[Hg] BP salemron blood pressure, systolic - 8480-6 139 mm[Hg] [...] - Chemistry sodium, serum 139 mmol/L 554-313 2237/07/07 urea nitrogen, blood 14 mg/dL 7-18 creatinine, [...] 11 .6-14.8 platelet count 345 10^3/MM^3 10*3/mm3 801-510 2803/08/08 erythrocyte (RBC) count 3.75 10^6/MM^3 10*6/mm3 4.04-5.4 8 hemoglobin, blood 12.2 g/dL 12.0-16.0 hematocrit, blood 36.5 % 36.0-46.0 mean corpuscular volume, RBC 97 fL 80-97 mean corpuscular hemoglobin, RBC 32.5 pg 27. 0-31.2 Lab Report: CBC, HGBA1C, Renal Panel - C hemistry hemoglobin A1C, blood, as % of total hemoglobin 7.9 % 4.3-6.0 sodium, serum 139 mmol/L 067-971 9269/02/04 potassium, serum 5.4 mmol/L 3.5-5.2 chloride, serum 99 mmol/L 98-107 carbon dioxide, venous blood 36.7 mmol/L 21.0-32 .0 creatinine, serum 2.02 mg/dL 0.55-1.30 blood glucose 181 mg/dL 65-110 urea nitrogen, blood 24 mg/dL 7-18 calcium, serum 9.4 mg/dL 8.5-10.1 Lab Report: CBC, HGBA1C, Renal Panel - H ematology mean corpuscular volume, RBC 97 fL 80-97 hematocrit, blood 35.6 % 36.0-46.0 hemoglobin, blood 11.7 g/dL 12.0-16.0 erythrocyte (RBC) count 3.66 10^6/MM^3 10*6/mm3 4.04-5.4 8 leukocyte count, blood 8.0 10^3/MM^3 10*3/mm3 4.6-10.2 mean corpuscular hemoglobin, RBC 31.9 pg 27. 0-31.2 mean corpuscular hemoglobin concentration, RBC 32.9 G/DL % 31.8-35.4 red blood cell distribution width 15.2 % 11 .6-14.8 platelet count 308 10^3/MM^3 10*3/mm3 142-424 Lab Report: Comp. Metabolic Panel, Lipid Panel - Chemistry sodium, serum 143 mmol/L 076-704 1716/12/19 carbon dioxide, venous blood 32.5 mmol/L 21.0-32 .0 potassium, serum 4.9 mmol/L 3.5-5.2 chloride, serum 101 mmol/L 98-107 blood glucose 129 mg/dL 65-110 urea nitrogen, blood 18 mg/dL 7-18 creatinine, serum 1.79 mg/dL 0.55-1.30 alanine aminotransferase (SGPT), serum 34 U/L 12-78 aspartate aminotransferase (SGOT), serum 26 U/L 15-37 calcium, serum 8.9 mg/dL 8.5-10.1 bilirubin, serum, total 0.30 mg/dL 0.00-1.00 cholesterol, serum 214 mg/dL 015-321 0254/12/19 triglyceride, serum, fasting 351 mg/dL 30-200 HDL cholesterol, serum 52 mg/dL 32-96 LDL cholesterol, serum 92 mg/dL 0-130 Lab Report: HGBA1C - Chemistry hemoglobin A1C, blood, as % of total hemoglobin 7.3 % 4.3-6.0 Lab Report: Renal Panel - Chemistry sodium, serum 141 mmol/L 307-808 3536/08/08 urea nitrogen, blood 30 mg/dL 7-18 calcium, serum 9.8 mg/dL 8.5-10.1 potassium, serum 4.9 mmol/L 3.5-5.2 chloride, serum 101 mmol/L 98-107 carbon dioxide, venous blood 34.1 mmol/L 21.0-32 .0 creatinine, serum 1.98 mg/dL 0.55-1.30 blood glucose 193 mg/dL 65-110 Encounters Code Encounter Date Provider Facility CPT-72178 Level 4 Est. Patient 11:34:17 CDT Baltazar Childers MD [facility]-03935 Level 3 Est. Patient 16:40:40 CDT Baltazar Childers MD [facility]-13523 Level 4 Est. Patient 10:41:24 CDT Baltazar Childers MD [facility]-10365 Level 4 Est. Patient 16:01:48 CDT Baltazar Childers MD [facility]-27732 Level 4 Est. Patient 16:54:07 AUTOMOTIVE ACCESSORY INSTALLER Baltazar Childers MD [facility]-04718 Level 4 Est. Patient 15:42:12 CDT Baltazar Childers MD [facility]-64325 Level 4 Est. Patient 11:29:55 CDT Baltazar Childers MD [facility]-68368 Level 4 Est. Patient 14:15:19 CDT Baltazar Childers MD [facility]-85328 Level 4 Est. Patient 12:20:13 CDT Baltazar Childers MD [facility]-75165 Level 4 Est. Patient 14:52:45 AUTOMOTIVE ACCESSORY INSTALLER Baltazar Childers MD [facility] CPT-75336 Level 4 Est. Patient 14:18:34 AUTOMOTIVE ACCESSORY INSTALLER Baltazar Childers MD [facility]-68274 Level 4 Est. Patient 15:18:29 CDT Baltazar Childers MD [facility]-00765 Level 3 Est. Patient 12:45:34 CDT Baltazar Childers MD [facility]-92019 Level 3 Est. Patient 10:10:11 CDT Baltazar Childers MD [facility] CPT-56390 Level 3 Est. Patient 14:07:50 CDT Baltazar Childers MD [facility] CPT-61442 Level 4 Est. Patient 12:26:10 AUTOMOTIVE ACCESSORY INSTALLER Baltazar Childers MD [facility] CPT-27674 Level 4 Est. Patient 14:45:38 CDT Baltazar Childers MD [facility] CPT-03226 Level 4 New Patient 12:30:48 CDT Baltazar hinton MD [facility] Procedures Code Procedure Name Date Entry Date Standard Desc ription CPT-97202 Lipid - LAB USE ONLY 17:39:15 AUTOMOTIVE ACCESSORY INSTALLER 9 CPT-10369 HGBA1C - LAB USE ONLY 17:39:15 AUTOMOTIVE ACCESSORY INSTALLER CPT-34283 CMP - LAB USE ONLY 17:39:14 AUTOMOTIVE ACCESSORY INSTALLER CPT-99997 Venipuncture Draw Fee 17:39:14 AUTOMOTIVE ACCESSORY INSTALLER CPT-34085 First Vx - Ix admin via ID I M or jet injects without counseling by physician 16:55:17 AUTOMOTIVE ACCESSORY INSTALLER CPT-54574 Fluzone Quadrivalent Intramuscular Suspe nsion 0.5 ML 16:55:17 AUTOMOTIVE ACCESSORY INSTALLER CPT-74825 Renal Panel - LAB USE ONLY 17:39:20 CDT 201 10/31/07 CPT-50802 CBC - LAB USE ONLY 17:39:20 CDT CPT-44912 Venipuncture Draw Fee 17:39:20 CDT CPT-01640 Venipuncture Draw Fee 14:33:30 CDT CPT-42967 Renal Panel - LAB USE ONLY 14:33:30 CDT 201 10/31/07 CPT-87774 CBC - LAB USE ONLY 14:33:29 CDT CPT-67446 Venipuncture Draw Fee 14:50:21 AUTOMOTIVE ACCESSORY INSTALLER CPT-27418 Immunization Single Admin 17:35:35 CDT 2014 CPT-27576 Fluzone Quadrivalent preservative free ( >=3yrs.) 17:35:35 CDT CPT-73637 Venipuncture Draw Fee 12:10:27 AUTOMOTIVE ACCESSORY INSTALLER CPT-51378 Fluzone Quadrivalent Intramuscular Suspe nsion 0.5 ML 10:49:13 CDT CPT-01135 First Vx Component - Ix admi n via ID IM or jet inj without physician counseling 15:17:19 AUTOMOTIVE ACCESSORY INSTALLER CPT-49264 Pneumovax 23 15:17:19 AUTOMOTIVE ACCESSORY INSTALLER CPT-39513 Pneumovax 14:52:45 AUTOMOTIVE ACCESSORY INSTALLER CPT-14765 Venipuncture Draw Fee 14:06:30 AUTOMOTIVE ACCESSORY INSTALLER CPT-000 Give Appropriate Flu Vaccine 14:18:34 AUTOMOTIVE ACCESSORY INSTALLER 2 CPT-57735 Administration single or combination vac cine inc oral 14:46:00 AUTOMOTIVE ACCESSORY INSTALLER CPT-73617 Influenza split virus > age 3 14:46:00 AUTOMOTIVE ACCESSORY INSTALLER CPT-OV Office Visit 19:13:16 CDT CPT-84417 Zostavax 18:41:56 CDT CPT-72811 Administration single or combination vac cine inc oral 12:56:39 CDT CPT-66377 Zoster Vaccine (Zostavax) 12:56:39 CDT 2012 CPT-55605 Venipuncture Draw Fee 10:58:57 CDT CPT-69050 Sono pelvis non OB uterus ovaries cervix 17:45:04 CDT CPT-15382 Sono retroperitoneal complete kidneys an d bladder 17:14:36 CDT CPT-OV Office Visit 14:59:38 AUTOMOTIVE ACCESSORY INSTALLER CPT-J1070 Depo Testosterone 100 mg 14:50:13 CDT 03/05 CPT-85972 Abx/Therapy Injection 14:50:13 CDT CPT-04739 Administration single or combination vac cine inc oral 14:34:43 CDT CPT-66643 Influenza split virus > age 3 14:34:43 CDT CPT-J1070 Depo Testosterone 100 mg 17:37:13 CDT 01/11 CPT-56564 Abx/Therapy Injection 17:37:13 CDT CPT-93882 Venipuncture Draw Fee 16:30:13 CDT CPT-16329 Venipuncture Draw Fee 16:29:43 CDT CPT-J1070 Depo Testosterone 100 mg 14:45:38 CDT 01/11
--- OUTSIDE RECORDS SUMMARY | 2019-10-27 13:33 | XMS REPORT | Clinical Summary ---
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 Benign neoplasm of colon PERIPHERAL NEUROPATHY 356.9 [...] ronary atherosclerosis of unspecified type of vessel, [place] [...] by mouth daily at night 2016 LISINOPRIL 42830936557 Active KENDALL Juarez Active ZITHROMAX Z-ISAIAS 250 MG ORAL TABLET Take two tablets to day and then 1 tablet daily for 4 days AZITHROMYCIN 76320872596 No Longer A ctive Baltazar Childers MD Active LANTUS SOLOSTAR 100 UNIT/ML SUBCUTANEOUS SOLUTION PEN- INJECTOR 30 units SC daily INSULIN GLARGINE 63009363530 Active Baltazar Childers MD Active AMLODIPINE BESYLATE 5 MG ORAL TABLET 1 tab daily for HTN AMLODIPINE BESYLATE 78695198629 Active Baltazar Childers MD Active SYNTHROID 100 MCG ORAL TABLET 1 tablet by mouth daily LEVOTHYROXINE SODIUM 77043286625 Active Baltazar Childers MD Active GLIPIZIDE 10 MG ORAL TABLET take 2 tablets twice daily GLIPIZIDE 66765330686 Active Baltazar Childers MD Active SUCRALFATE 1 GM ORAL TABLET 1 four times a day to coat the stoma ch SUCRALFATE 16468781242 No Longer Active Baltazar Childers MD Active PEN NEEDLES 31G X 6 MM use 1 daily INSULIN PEN NE EDLE 88722777616 Active KENDALL Juarez Active TOUJEO SOLOSTAR 300 UNIT/ML SUBCUTANEOUS SOLUTION PEN- INJECTOR 10 units SC daily INSULIN GLARGINE 41000915678 No Longer Active S abigail Herbert RMA Active NAPROXEN SODIUM 220 MG ORAL TABLET 1 three times a day as needed NAPROXEN SODIUM 53478442170 No Longer Active Baltazar Childers MD Active ATORVASTATIN CALCIUM 20 MG ORAL TABLET Take 1 tab daily ATORVASTATIN CALCIUM 59479780337 Active Baltazar Childers MD A ctive FUROSEMIDE 40 MG ORAL TABLET Take one by mouth daily FUROSEMIDE 33042515673 Active Jessy Arellano LPN Active LISINOPRIL 20 MG ORAL TABLET Take one by mouth daily at bedtime LISINOPRIL 01087547496 No Longer Active Baltazar Childers MD Active ONETOUCH ULTRA BLUE IN VITRO STRIP Test twice a day 07/11/11 GLUCOSE BLOOD 83569256741 No Longer Active Baltazar Childers MD Acti ve TRUEPLUS LANCETS 33G Test twice a day LANCETS 7339166 6079 Active KENDALL Juarez Active TRUEDRAW LANCING DEVICE Test twice a day LANCET DEVICES 86453880337 Active Baltazar Childers MD Active TRUETRACK TEST IN VITRO STRIP Test twice a day GLUCOSE BLOOD 61929496432 Active KENDALL Juarez Active TRUETRACK BLOOD GLUCOSE w/Device KIT Test twice a day BLOOD GLUCOSE MONITORING SUPPL 93944136068 Active Baltazar Childers MD Activ e HYDROCODONE-ACETAMINOPHEN 7.5-325 MG ORAL TABLET Take 1 tab every 6-8 hours PRN HYDROCODONE-ACETAMINOPHEN 28372345199 Active Baltazar Nickerson MD Active NORTRIPTYLINE HCL 50 MG ORAL CAPSULE 1 every night for neuropathy 2 NORTRIPTYLINE HCL 96405313502 Active Baltazar Childers MD Acti ve GABAPENTIN 300 MG ORAL CAPSULE 1 three times a day GABAPENTIN 42922086708 Active Baltazar Childers MD Active GABAPENTIN 300 MG ORAL CAPSULE 1 po qd x 2 days, then 1 po BID x 2 days, then 1 po TID GABAPENTIN 90348591686 No Longer Active Baltazar Childers MD Active TRAMADOL HCL 50 MG ORAL TABLET 1 twice a day as needed for pain 201 07/27/28 TRAMADOL HCL 38403420358 Active Baltazar Childers MD Active NAPROXEN 500 MG ORAL TABLET 1 tablet by mouth twice daily NAPROXEN 38617864417 No Longer Active Baltazar Childers MD Active PROAIR HFA 108 (90 Base) MCG/ACT INHALATION AEROSOL SO LUTION 2 puffs four times a day as needed ALBUTEROL SULFATE 47282114386 Active Paul Childers MD Active DEPO-TESTOSTERONE 200 MG/ML INTRAMUSCULAR SOLUTION as directed TESTOSTERONE CYPIONATE 40758728542 No Longer Active Baltazar Childers MD Active LIPITOR 20 MG ORAL TABLET Take one by mouth daily in evening ATORVASTATIN CALCIUM 05044803708 No Longer Active Baltazar Childers MD Active CRESTOR 10 MG ORAL TABLET 1 by mouth every day ROSUVASTATIN CALCIUM 66464423223 No Longer Active Baltazar Childers MD Active PHENTERMINE HCL 37.5 MG ORAL TABLET Take one by mouth daily PHENTERMINE HCL 64131395826 No Longer Active Baltazar Childers MD Ac tive ROBAXIN-750 750 MG ORAL TABLET Take one by mouth daily METHOCARBAMOL 15455898956 Active Baltazar Childers MD Active TIZANIDINE HCL 4 MG ORAL TABLET 1 daily as needed for muscle spa sm TIZANIDINE HCL 82342627706 No Longer Active Dawna Salazar RN Active [id number] 50-325-40 MG ORAL TABLET 1 fo ur times a day as needed for heacache [id number] 85826090372 Active Baltazar Childers MD Active SUMATRIPTAN SUCCINATE 100 MG ORAL TABLET 1 tablet by m outh at onset of migraine as needed SUMATRIPTAN SUCCINATE 74644116491 Active Bertha Vazquez LPN Active LORATADINE 10 MG ORAL TABLET Take one by mouth daily LORATADINE 88349776892 Active Baltazar Childers MD Active OMEPRAZOLE 20 MG ORAL CAPSULE DELAYED RELEASE Take one by mouth jostin ly OMEPRAZOLE 09696945810 Active Baltazar Childers MD Active HYDROXYZINE HCL 25 MG ORAL TABLET Take one by mouth daily HYDROXYZINE HCL 62754698980 Active Baltazar Childers MD Active ALPRAZOLAM 1 MG ORAL TABLET 1 tablet by mouth daily at [facility] restless leg ALPRAZOLAM 38649533492 Active Baltazar Childers MD Active METFORMIN HCL 1000 MG ORAL TABLET Take one by mouth twice daily METFORMIN HCL 81725919113 Active Baltazar Childers MD Active TIZANIDINE HCL 4 MG ORAL TABLET 1 daily as needed for muscle spa TIZANIDINE HCL 4 MG ORAL TABLET 726214 TIZANIDINE HCL Inactive PHENTERMINE HCL 37.5 MG ORAL TABLET Take one by mouth daily PHENTERMINE HCL 37.5 MG ORAL TABLET 064609 PHENTERMINE HCL Inac tive CRESTOR 10 MG ORAL TABLET 1 by mouth every day CRESTOR 10 MG ORAL TABLET 979103 ROSUVASTATIN CALCIUM Inactive LIPITOR 20 MG ORAL TABLET Take one by mouth daily in evening LIPITOR 20 MG ORAL TABLET 354376 ATORVASTATIN CALCIUM Inactive DEPO-TESTOSTERONE 200 MG/ML INTRAMUSCULAR SOLUTION as directed DEPO-TESTOSTERONE 200 MG/ML INTRAMUSCULAR SOLUTION 648471 RUFINO TOSTERONE CYPIONATE Inactive NAPROXEN 500 MG ORAL TABLET 1 tablet by mouth twice daily NAPROXEN 500 MG ORAL TABLET 076281 NAPROXEN Inactive GABAPENTIN 300 MG ORAL CAPSULE 1 po qd x 2 days, then 1 po BID x 2 days, then 1 po TID GABAPENTIN 300 MG ORAL CAPSULE 649571 GABAP ENTIN Inactive ONETOUCH ULTRA BLUE IN VITRO STRIP Test twice a day 07/11/11 ONETOUCH ULTRA BLUE IN VITRO STRIP GLUCOSE BLOOD Inact amie NAPROXEN SODIUM 220 MG ORAL TABLET 1 three times a day as needed NAPROXEN SODIUM 220 MG ORAL TABLET 629367 NAPROXEN SODI UM Inactive TOUJEO SOLOSTAR 300 UNIT/ML SUBCUTANEOUS SOLUTION PEN- INJECTOR 10 units SC daily TOUJEO SOLOSTAR 300 UNIT/ML SUBCUTANEOUS SOLUTION PEN-INJECTOR INSULIN GLARGINE Inactive SUCRALFATE 1 GM ORAL TABLET 1 four times a day to coat the stoma ch SUCRALFATE 1 GM ORAL TABLET 547309 SUCRALFATE Inac tive ZITHROMAX Z-ISAIAS 250 MG ORAL TABLET Take two tablets to day and then 1 tablet daily for 4 days ZITHROMAX Z-ISAIAS 250 MG ORAL TAB LET 364965 AZITHROMYCIN Inactive Immunizations Vaccine Administration Date Value Standard Floyd cription pneumococcal immunization administered Pneumovax 23 [CVX33] pneumococcal polysaccharide vaccine, 23 valent Seasonal influenza vaccine, injectable, containing preservative, for > 3 years old (Afluria, FluLaval, Fluzone, Fluvirin, Fluarix, Agriflu(>= 18 yo)) Fluzone (>3 yrs.) [[id number]] Influenza, seasonal, inject able Seasonal influenza vaccine, injectable, containing preservative, for > 3 years old (Afluria, FluLaval, Fluzone, Fluvirin, Fluarix, Agriflu(>= 18 yo)) Fluzone (>3 yrs.) [[id number]] Influenza, seasonal, inject able Vital Signs Date [...] - Chem istry sodium, serum 139 mmol/L 888-052 5493/10/03 potassium, serum 4.7 mmol/L 3.5-5.2 chloride, serum 98 mmol/L 98-107 carbon dioxide, venous blood 28.7 mmol/L 21.0-32 .0 blood glucose 218 mg/dL 65-110 calcium, serum 9.8 mg/dL 8.5-10.1 urea nitrogen, blood 19 mg/dL 7-18 creatinine, serum 1.68 mg/dL 0.60-1.30 Lab Report: Basic Metabolic Panel, HGBA1 C - Chemistry sodium, serum 143 mmol/L 508-926 5597/06/19 potassium, serum 5.9 mmol/L 3.5-5.2 chloride, serum 105 mmol/L 98-107 carbon dioxide, venous blood 30.2 mmol/L 21.0-32 .0 blood glucose 189 mg/dL 65-110 calcium, serum 9.7 mg/dL 8.5-10.1 urea nitrogen, blood 37 mg/dL 7-18 creatinine, serum 2.11 mg/dL 0.55-1.30 hemoglobin A1C, blood, as % of total hemoglobin 8.2 % 4.3-6.0 Lab Report: CBC, Renal Panel - Chemistry sodium, serum 142 mmol/L 084-313 1409/08/11 potassium, serum 4.8 mmol/L 3.5-5.2 chloride, serum [...] Panel - Chemistry sodium, serum 143 mmol/L 925-508 2294/12/19 carbon dioxide, venous blood 32.5 mmol/L 21.0-32 .0 potassium, serum 4.9 mmol/L 3.5-5.2 chloride, serum 101 mmol/L 98-107 blood glucose 129 mg/dL 65-110 urea nitrogen, blood 18 mg/dL 7-18 creatinine, serum 1.79 mg/dL 0.55-1.30 alanine aminotransferase (SGPT), serum 34 U/L 12-78 aspartate aminotransferase (SGOT), serum 26 U/L 15-37 calcium, serum 8.9 mg/dL 8.5-10.1 bilirubin, serum, total 0.30 mg/dL 0.00-1.00 cholesterol, serum 214 mg/dL 801-315 5300/12/19 triglyceride, serum, fasting 351 mg/dL 30-200 HDL [...] 4.3-6.0 Encounters Code Encounter Date Provider Facility CPT-40092 Level 4 Est. Patient 12:25:11 CDT Baltazar Childers MD [facility] CPT-90318 Level 4 Est. Patient 14:22:31 CDT Baltazar Childers MD [facility] CPT-51266 Level 4 Est. Patient 15:44:38 CDT Shonna Parker APRN [facility] CPT-79734 Level 4 Est. Patient 11:34:17 CDT Baltazar Childers MD [facility] CPT-98291 Level 3 Est. Patient 16:40:40 CDT Baltazar Childers MD [facility]-25755 Level 4 Est. Patient 10:41:24 CDT Baltazar Childers MD [facility]-77878 Level 4 Est. Patient 16:01:48 CDT Batlazar Childers MD [facility]-53550 Level 4 Est. Patient 16:54:07 [employer] Baltazar Childers MD [facility]-43716 Level 4 Est. Patient 15:42:12 CDT Baltazar Childers MD [facility] CPT-57718 Level 4 Est. Patient 11:29:55 CDT Baltazar Childers MD [facility] CPT-16035 Level 4 Est. Patient 14:15:19 CDT Baltazar Childers MD [facility] CPT-93780 Level 4 Est. Patient 12:20:13 CDT Baltazar Childers MD [facility] CPT-84848 Level 4 Est. Patient 14:52:45 [employer] Baltazar Childers MD [facility] CPT-64966 Level 4 Est. Patient 14:18:34 [employer] Baltazar Childers MD [facility] CPT-51826 Level 4 Est. Patient 15:18:29 CDT Baltazar Childers MD [facility] CPT-20319 Level 3 Est. Patient 12:45:34 CDT Baltazar Childers MD [facility] CPT-64416 Level 3 Est. Patient 10:10:11 CDT Baltazar Childers MD [facility] CPT-10819 Level 3 Est. Patient 14:07:50 CDT Baltazar Childers MD [facility] CPT-15182 Level 4 Est. Patient 12:26:10 [employer] Baltazar Childers MD [facility] CPT-51789 Level 4 Est. Patient 14:45:38 CDT Baltazar Childers MD [facility] CPT-74321 Level 4 New Patient 12:30:48 CDT Baltazar hinton MD [facility] Procedures Code Procedure Name Date Entry Date Standard Desc ription CPT-39749 First Vx - Ix admin via ID I M or jet injects without counseling by physician 13:08:59 CDT CPT-64890 Fluzone Quadrivalent Intramuscular Suspe nsion 0.5 ML 13:08:59 CDT CPT-53693 Venipuncture Draw Fee 12:04:12 CDT CPT-29038 Lipid - LAB USE ONLY 17:39:15 [employer] 9 CPT-35709 HGBA1C - LAB USE ONLY 17:39:15 [employer] CPT-51571 CMP - LAB USE ONLY 17:39:14 [employer] CPT-17790 Venipuncture Draw Fee 17:39:14 P[employer] CPT-03981 First Vx - Ix admin via ID I M or jet injects without counseling by physician 16:55:17 [employer] CPT-97128 Fluzone Quadrivalent Intramuscular Suspe nsion 0.5 ML 16:55:17 [employer] CPT-85785 Renal Panel - LAB USE ONLY 17:39:20 CDT 201 10/31/07 CPT-57269 CBC - LAB USE ONLY 17:39:20 CDT CPT-57284 Venipuncture Draw Fee 17:39:20 CDT CPT-30848 Venipuncture Draw Fee 14:33:30 CDT CPT-72449 Renal Panel - LAB USE ONLY 14:33:30 CDT 201 10/31/07 CPT-06519 CBC - LAB USE ONLY 14:33:29 CDT CPT-79781 Venipuncture Draw Fee 14:50:21 [employer] CPT-58408 Immunization Single Admin 17:35:35 CDT 2014 CPT-45651 Fluzone Quadrivalent preservative free ( >=3yrs.) 17:35:35 CDT CPT-67923 Venipuncture Draw Fee 12:10:27 P[employer] CPT-73147 Fluzone Quadrivalent Intramuscular Suspe nsion 0.5 ML 10:49:13 CDT CPT-60980 First Vx Component - Ix admi n via ID IM or jet inj without physician counseling 15:17:19 P[employer] CPT-66995 Pneumovax 23 15:17:19 P[employer] B[employer] CPT-72343 Pneumovax 14:52:45 P[employer] BEE[employer] CPT-72502 Venipuncture Draw Fee 14:06:30 [employer] CPT-000 Give Appropriate Flu Vaccine 14:18:34 PACKER DRI[employer] BEEF 2 CPT-05103 Administration single or combination vac cine inc oral 14:46:00 P[employer] BEEF CPT-54659 Influenza split virus > age 3 14:46:00 P[employer] BEEF CPT-OV Office Visit 19:13:16 CDT CPT-51330 Zostavax 18:41:56 CDT CPT-33063 Administration single or combination vac cine inc oral 12:56:39 CDT CPT-30472 Zoster Vaccine (Zostavax) 12:56:39 CDT 2012 CPT-63981 Venipuncture Draw Fee 10:58:57 CDT CPT-22846 Sono pelvis non OB uterus ovaries cervix 17:45:04 CDT CPT-85105 Sono retroperitoneal complete kidneys an d bladder 17:14:36 CDT CPT-OV Office Visit 14:59:38 [employer] CPT-J1070 Depo Testosterone 100 mg 14:50:13 CDT 03/05 CPT-43299 Abx/Therapy Injection 14:50:13 CDT CPT-33202 Administration single or combination vac cine inc oral 14:34:43 CDT CPT-71296 Influenza split virus > age 3 14:34:43 CDT CPT-J1070 Depo Testosterone 100 mg 17:37:13 CDT 01/11 CPT-80959 Abx/Therapy Injection 17:37:13 CDT CPT-09753 Venipuncture Draw Fee 16:30:13 CDT CPT-85612 Venipuncture Draw Fee 16:29:43 CDT CPT-J1070 Depo Testosterone 100 mg 14:45:38 CDT 01/11
--- OUTSIDE RECORDS SUMMARY | 2019-10-27 13:33 | XMS REPORT | Clinical Summary ---
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 Benign neoplasm of colon PERIPHERAL NEUROPATHY [...] y atherosclerosis of unspecified type of vessel, [place] or graft OTH NONSPC ABN FINDNG RAD&OTH [...] MISC Test twice a day LANCET S 24766486181 Active Baltazar Childers MD Active TRUEDRAW LANCING DEVICE MISC Test twice a day L ANCET DEVICES 13401843626 Active Baltazar Childers MD Active TRUETRACK TEST STRP Test twice a day GLUCOSE BLOO D 79193703462 Active Baltazar Childers MD Active TRUETRACK BLOOD GLUCOSE W/DEVICE KIT Test twice a day BLOOD GLUCOSE MONITORING SUPPL 84927757850 Active Bella Suarez APRN Active HYDROCODONE-ACETAMINOPHEN 7.5-325 MG TABS Take 1 tab every 6-8 hour s PRN HYDROCODONE-ACETAMINOPHEN 79859248165 Active Baltazar Childers MD Active NORTRIPTYLINE HCL 50 MG CAPS 1 every night for neuropathy 4 NORTRIPTYLINE HCL 03158936508 Active Bella Suarez APRN Active GABAPENTIN 300 MG CAPS 1 three times a day GABAPE NTIN 80801682570 Active Baltazar Childers MD Active GABAPENTIN 300 MG CAPS 1 po qd x 2 days, then 1 po BID x 2 d ays, then 1 po TID GABAPENTIN 88703153474 No Longer Active Baltazar silverman MD Active TRAMADOL HCL 50 MG TABS 1 twice a day as needed for pain TRAMADOL HCL 65550606467 Active Baltazar Childers MD Active NAPROXEN 500 MG TABS 1 tablet by mouth twice daily NAPROXEN 53284258723 No Longer Active Baltazar Childers MD Active PROAIR HFA 108 (90 BASE) MCG/ACT AERS 2 puffs four times a d ay as needed ALBUTEROL SULFATE 13315902091 Active Baltazar Childers MD Active DEPO-TESTOSTERONE 200 MG/ML OIL as directed RUFINO TOSTERONE CYPIONATE 64263091789 No Longer Active Baltazar Childers MD Active LIPITOR 20 MG TABS Take one by mouth daily in evening ATORVASTATIN CALCIUM 25834568699 No Longer Active Baltazar Childers MD Activ e CRESTOR 10 MG TABS 1 by mouth every day R OSUVASTATIN CALCIUM 16678984529 No Longer Active Baltazar Childers MD Activ e PHENTERMINE HCL 37.5 MG TABS Take one by mouth daily 2 PHENTERMINE HCL 90552656284 No Longer Active Baltazar Childers MD Activ e ROBAXIN-750 750 MG TABS Take one by mouth daily ME THOCARBAMOL 85071345316 Active Baltazar Childers MD Active TIZANIDINE HCL 4 MG TABS 1 daily as needed for muscle spasm 2011 TIZANIDINE HCL 74841874282 No Longer Active Dawna Salazar RN Active MesMateriauxUCH ULTRA BLUE STRP Test twice a day GLUCO SE BLOOD 20777242239 Active Baltazar Childers MD Active [id number] 50-325-40 MG TABS 1 four time s a day as needed for heacache [id number] 56186473976 Active Baltazar Childers MD Active SUMATRIPTAN SUCCINATE 100 MG TABS 1 tablet by mouth at onset of migraine as needed SUMATRIPTAN SUCCINATE 90127303967 Active Baltazar barron MD Active LORATADINE 10 MG TABS Take one by mouth daily LORATADINE 53838443970 Active Baltazar Childers MD Active FUROSEMIDE 40 MG TABS Take one by mouth daily FUROSEMIDE 83918279133 Active Baltazar Childers MD Active LISINOPRIL 20 MG TABS Take one by mouth daily at bedtime LISINOPRIL 39259034887 Active Bella Suarez APRN Active OMEPRAZOLE 20 MG CPDR Take one by mouth daily OMEPRAZOLE 83028191927 Active Baltazar Childers MD Active HYDROXYZINE HCL 25 MG TABS Take one by mouth daily HYDROXYZINE HCL 99608534646 Active Baltazar Childers MD Active GLIPIZIDE 10 MG TABS 1 tablet by mouth twice daily GLIPIZIDE 40997126041 Active Baltazar Childers MD Active ALPRAZOLAM 1 MG TABS 1 tablet by mouth daily at bedtime for restles s leg ALPRAZOLAM 79532643783 Active Baltazar Childers MD Active METFORMIN HCL 1000 MG TABS Take one by mouth twice daily METFORMIN HCL 51777722558 Active Bella Suarez APRN Active TIZANIDINE HCL 4 MG TABS 1 daily as needed for muscle spasm 2011 TIZANIDINE HCL 4 MG TABS 648009 TIZANIDINE HCL Inactiv e PHENTERMINE HCL 37.5 MG TABS Take one by mouth daily 2 PHENTERMINE HCL 37.5 MG TABS 072784 PHENTERMINE HCL Inactive CRESTOR 10 MG TABS 1 by mouth every day C RESTOR 10 MG TABS ROSUVASTATIN CALCIUM Inactive LIPITOR 20 MG TABS Take one by mouth daily in evening LIPITOR 20 MG TABS 926366 ATORVASTATIN CALCIUM Inactive DEPO-TESTOSTERONE 200 MG/ML OIL as directed 8 DEPO-TESTOSTERONE 200 MG/ML OIL 546033 TESTOSTERONE CYPIONATE Inactive NAPROXEN 500 MG TABS 1 tablet by mouth twice daily 201 07/27/22 NAPROXEN 500 MG TABS 734372 NAPROXEN Inactive GABAPENTIN 300 MG CAPS 1 po qd x 2 days, then 1 po BID x 2 d ays, then 1 po TID GABAPENTIN 300 MG CAPS 881262 GABAPENTIN Inact amie Immunizations Vaccine Administration Date Value Standard Floyd cription pneumococcal immunization administered Pneumovax 23 [CVX33] pneumococcal polysaccharide vaccine, 23 valent Seasonal influenza vaccine, injectable, containing preservative, for > 3 years old (Afluria, FluLaval, Fluzone, Fluvirin, Fluarix, Agriflu(>= 18 yo)) Fluzone (>3 yrs.) [TBM389] Influenza, seasonal, inject able Seasonal influenza vaccine, injectable, containing preservative, for > 3 years old (Afluria, FluLaval, Fluzone, Fluvirin, Fluarix, Agriflu(>= 18 yo)) Fluzone (>3 yrs.) [OUS633] Influenza, seasonal, inject able Vital Signs Date [...] Panel - Chemistry sodium, serum 139 mmol/L 000-090 1783/01/20 potassium, serum 5.3 mmol/L 3.5-5.2 chloride, serum [...] mg/g mg/g{creat} 0-29 cholesterol, serum 319 mg/dL 694-440 0467/08/21 triglyceride, serum, fasting 546 mg/dL 30-200 HDL cholesterol, serum 39 mg/dL 32-96 LDL cholesterol, serum 167.00 mg/dL 5.00-130.00 hemoglobin A1C, blood, as % of total hemoglobin 7.7 % 4.3-6.0 sodium, serum 138 mmol/L 636-021 5466/08/21 potassium, serum 4.3 mmol/L 3.5-5.2 chloride, serum 100 mmol/L 98-107 carbon dioxide, venous blood 33.2 mmol/L 21.0-32 .0 blood glucose 138 mg/dL 65-110 urea nitrogen, blood 13 mg/dL 7-18 creatinine, serum 1.40 mg/dL 0.60-1.30 Lab Report: MICROALBUMIN, Lipid Panel, H GBA1C, Comp. Metabolic Panel - Lab microalbumin, urine 10 0-19 Encounters Code Encounter Date Provider Facility CPT-61436 Level 4 Est. Patient 14:15:19 CDT Baltazar Childers MD [facility] CPT-32527 Level 4 Est. Patient 12:20:13 CDT Baltazar Childers MD [facility] CPT-32398 Level 4 Est. 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 Patient 15:18:29 CDT Baltazar Childers MD [facility] CPT-47328 Level 3 Est. Patient 12:45:34 CDT Baltazar Childers MD [facility] CPT-83305 Level 3 Est. Patient 10:10:11 CDT Baltazar Childers MD [facility] CPT-55275 Level 3 Est. Patient 14:07:50 CDT Baltazar Childers MD [facility] CPT-90603 Level 4 Est. 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 Patient 14:45:38 CDT Baltazar Childers MD [facility] CPT-40071 Level 4 New Patient 12:30:48 CDT Baltazar hinton MD [facility] Procedures Code Procedure Name Date Entry Date Standard Desc ription CPT-31958 Venipuncture Draw Fee 12:10:27 MARKETING SYSTEMS MANAGER CPT-09319 Fluzone Quadrivalent Intramuscular Suspe nsion 0.5 ML 10:49:13 CDT CPT-46791 First Vx Component - Ix admi n via ID IM or jet inj without physician counseling 15:17:19 MARKETING SYSTEMS MANAGER CPT-00764 Pneumovax 23 15:17:19 MARKETING SYSTEMS MANAGER CPT-79959 Pneumovax 14:52:45 MARKETING SYSTEMS MANAGER CPT-38165 Venipuncture Draw Fee 14:06:30 MARKETING SYSTEMS MANAGER CPT-000 Give Appropriate Flu Vaccine 14:18:34 MARKETING SYSTEMS MANAGER 2 CPT-25777 Administration single or combination vac cine inc oral 14:46:00 MARKETING SYSTEMS MANAGER CPT-34159 Influenza split virus > age 3 14:46:00 MARKETING SYSTEMS MANAGER CPT-OV Office Visit 19:13:16 CDT CPT-52042 Zostavax 18:41:56 CDT CPT-97005 Administration single or combination vac cine inc oral 12:56:39 CDT CPT-93823 Zoster Vaccine (Zostavax) 12:56:39 CDT 2012 CPT-30073 Venipuncture Draw Fee 10:58:57 CDT CPT-06635 Sono pelvis non OB uterus ovaries cervix 17:45:04 CDT CPT-59244 Sono retroperitoneal complete kidneys an d bladder 17:14:36 CDT CPT-OV Office Visit 14:59:38 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
--- OUTSIDE RECORDS SUMMARY | 2019-10-27 13:34 | XMS REPORT | Clinical Summary ---
Author Author Abhishek, Elba Lance [facility] Address Unknown Phone Unavailable Allergies, Adverse [...] libido COLON POLYPS 211.3 Resolved Lolis Thomas SUPERINTENDENT JOB Benign neoplasm of colon PERIPHERAL NEUROPATHY 356.9 [...] Test twice a day GLUCO SE BLOOD [id number] No Longer Active Baltazar Childers MD Active TRUEPLUS LANCETS 33G MISC Test twice a day LANCET S 67617381118 Active Baltazar Childers MD Active TRUEDRAW LANCING DEVICE MISC Test twice a day L ANCET DEVICES 06102005531 Active Baltazar Childers MD Active TRUETRACK TEST STRP Test twice a day GLUCOSE BLOO D 07412013849 Active Baltazar Childers MD Active TRUETRACK BLOOD GLUCOSE W/DEVICE KIT Test twice a day BLOOD GLUCOSE MONITORING SUPPL 69142121890 Active Baltazar Childers MD Activ e HYDROCODONE-ACETAMINOPHEN 7.5-325 MG TABS Take 1 tab every 6-8 hour s PRN HYDROCODONE-ACETAMINOPHEN 20934305277 Active Gato Rae MD Active NORTRIPTYLINE HCL 50 MG CAPS 1 every night for neuropathy 4 NORTRIPTYLINE HCL 87419432315 Active Baltazar Childers MD Acti ve GABAPENTIN 300 MG CAPS 1 three times a day GABAPE NTIN 15506893348 Active Baltazar Childers MD Active GABAPENTIN 300 MG CAPS 1 po qd x 2 days, then 1 po BID x 2 d ays, then 1 po TID GABAPENTIN 37696443833 No Longer Active Baltazar silverman MD Active TRAMADOL HCL 50 MG TABS 1 twice a day as needed for pain TRAMADOL HCL 12835272940 Active Baltazar Childers MD Active NAPROXEN 500 MG TABS 1 tablet by mouth twice daily NAPROXEN 65860457905 No Longer Active Baltazar Childers MD Active PROAIR HFA 108 (90 BASE) MCG/ACT AERS 2 puffs four times a d ay as needed ALBUTEROL SULFATE 88833665742 Active Baltazar Childers MD Active DEPO-TESTOSTERONE 200 MG/ML OIL as directed RUFINO TOSTERONE CYPIONATE 46006189797 No Longer Active Baltazar Childers MD Active LIPITOR 20 MG TABS Take one by mouth daily in evening ATORVASTATIN CALCIUM 82273316907 No Longer Active Baltazar Childers MD Activ e CRESTOR 10 MG TABS 1 by mouth every day R OSUVASTATIN CALCIUM 36457436135 No Longer Active Baltazar Childers MD Activ e PHENTERMINE HCL 37.5 MG TABS Take one by mouth daily 2 PHENTERMINE HCL 66802224076 No Longer Active Baltazar Childers MD Activ e ROBAXIN-750 750 MG TABS Take one by mouth daily ME THOCARBAMOL 91549703432 Active Baltazar Childers MD Active TIZANIDINE HCL 4 MG TABS 1 daily as needed for muscle spasm 2011 TIZANIDINE HCL 49168244631 No Longer Active Dawna Salazar RN Active VILVAIFCUK-YMFU-OFUVQHIG 50-325-40 MG TABS 1 four time s a day as needed for heacache [id number] 87024946199 Active Baltazar Childers MD Active SUMATRIPTAN SUCCINATE 100 MG TABS 1 tablet by mouth at onset of migraine as needed SUMATRIPTAN SUCCINATE 42789341211 Active Baltazar bynum MD Active LORATADINE 10 MG TABS Take one by mouth daily LORATADINE 51404324997 Active Baltazar Childers MD Active FUROSEMIDE 40 MG TABS Take one by mouth daily FUROSEMIDE 04949854608 Active Baltazar Childers MD Active LISINOPRIL 20 MG TABS Take one by mouth daily at bedtime LISINOPRIL 15853219472 Active Baltazar Childers MD Active OMEPRAZOLE 20 MG CPDR Take one by mouth daily OMEPRAZOLE 92800943793 Active Baltazar Childers MD Active HYDROXYZINE HCL 25 MG TABS Take one by mouth daily HYDROXYZINE HCL 51388079999 Active Baltazar Childers MD Active GLIPIZIDE 10 MG TABS 1 tablet by mouth twice daily GLIPIZIDE 70883737310 Active Baltazar Childers MD Active ALPRAZOLAM 1 MG TABS 1 tablet by mouth daily at bedtime for restles s leg ALPRAZOLAM 16180317443 Active Baltazar Childers MD Active METFORMIN HCL 1000 MG TABS Take one by mouth twice daily METFORMIN HCL 18157641938 Active Baltazar Childers MD Active TIZANIDINE HCL 4 MG TABS 1 daily as needed for muscle spasm 2011 TIZANIDINE HCL 4 MG TABS 011897 TIZANIDINE HCL Inactiv e PHENTERMINE HCL 37.5 MG TABS Take one by mouth daily 2 PHENTERMINE HCL 37.5 MG TABS 467252 PHENTERMINE HCL Inactive CRESTOR 10 MG TABS 1 by mouth every day C RESTOR 10 MG TABS ROSUVASTATIN CALCIUM Inactive LIPITOR 20 MG TABS Take one by mouth daily in evening LIPITOR 20 MG TABS 339698 ATORVASTATIN CALCIUM Inactive DEPO-TESTOSTERONE 200 MG/ML OIL as directed 8 DEPO-TESTOSTERONE 200 MG/ML OIL 833209 TESTOSTERONE CYPIONATE Inactive NAPROXEN 500 MG TABS 1 tablet by mouth twice daily 201 07/27/22 NAPROXEN 500 MG TABS 283060 NAPROXEN Inactive GABAPENTIN 300 MG CAPS 1 po qd x 2 days, then 1 po BID x 2 d ays, then 1 po TID GABAPENTIN 300 MG CAPS 568183 GABAPENTIN Inact amie ONETOUCH ULTRA BLUE STRP Test twice a day ONETOUCH ULTRA BLUE STRP GLUCOSE BLOOD Inactive Immunizations Vaccine Administration Date Value Standard Floyd cription pneumococcal immunization administered Pneumovax 23 [CVX33] pneumococcal polysaccharide vaccine, 23 valent Seasonal influenza vaccine, injectable, containing preservative, for > 3 years old (Afluria, FluLaval, Fluzone, Fluvirin, Fluarix, Agriflu(>= 18 yo)) Fluzone (>3 yrs.) [HOP403] Influenza, seasonal, inject able Seasonal influenza vaccine, injectable, containing preservative, for > 3 years old (Afluria, FluLaval, Fluzone, Fluvirin, Fluarix, Agriflu(>= 18 yo)) Fluzone (>3 yrs.) [[id number]] Influenza, seasonal, inject able Vital Signs Date [...] - Chem istry sodium, serum 140 mmol/L 579-095 6693/05/05 potassium, serum 4.9 mmol/L 3.5-5.2 chloride, serum 99 mmol/L 98-107 carbon dioxide, venous blood 34.3 mmol/L 21.0-32 .0 blood glucose 132 mg/dL 65-110 calcium, serum 10.1 mg/dL 8.5-10.1 urea nitrogen, blood 23 mg/dL 7-18 creatinine, serum 2.00 mg/dL 0.60-1.30 Lab Report: CBC - Hematology mean corpuscular [...] Panel - Chemistry sodium, serum 139 mmol/L 019-261 3934/01/20 potassium, serum 5.3 mmol/L 3.5-5.2 chloride, serum [...] mg/g mg/g{creat} 0-29 cholesterol, serum 319 mg/dL 329-262 3921/08/21 triglyceride, serum, fasting 546 mg/dL 30-200 HDL cholesterol, serum 39 mg/dL 32-96 LDL cholesterol, serum 167.00 mg/dL 5.00-130.00 hemoglobin A1C, blood, as % of total hemoglobin 7.7 % 4.3-6.0 sodium, serum 138 mmol/L 847-530 9200/08/21 potassium, serum 4.3 mmol/L 3.5-5.2 chloride, serum [...] 0-19 Encounters Code Encounter Date Provider Facility CPT-15169 Level 4 Est. Patient 11:29:55 CDT Baltazar Childers MD [facility] CPT-07162 Level 4 Est. Patient 14:15:19 CDT Baltazar Childers MD [facility] CPT-40362 Level 4 Est. Patient 12:20:13 CDT Baltazar Childers MD [facility] CPT-48808 Level 4 Est. Patient 14:52:45 INFLATED PAD BUFFER Baltazar Childers MD [facility] CPT-93748 Level 4 Est. Patient 14:18:34 INFLATED PAD BUFFER Baltazar Childers MD [facility] CPT-25187 Level 4 Est. Patient 15:18:29 CDT Baltazar Childers MD [facility] CPT-98473 Level 3 Est. Patient 12:45:34 CDT Baltazar Childers MD [facility] CPT-10730 Level 3 Est. Patient 10:10:11 CDT Baltazar Childers MD [facility] CPT-11040 Level 3 Est. Patient 14:07:50 CDT Baltazar Childers MD [facility] CPT-16340 Level 4 Est. Patient 12:26:10 INFLATED PAD BUFFER Baltazar Childers MD [facility] CPT-48127 Level 4 Est. Patient 14:45:38 CDT Baltazar Childers MD [facility] CPT-46645 Level 4 New Patient 12:30:48 CDT Baltazar hinton MD [facility] Procedures Code Procedure Name Date Entry Date Standard Desc ription CPT-33736 Venipuncture Draw Fee 12:10:27 INFLATED PAD BUFFER CPT-61607 Fluzone Quadrivalent Intramuscular Suspe nsion 0.5 ML 10:49:13 CDT CPT-39638 First Vx Component - Ix admi n via ID IM or jet inj without physician counseling 15:17:19 INFLATED PAD BUFFER CPT-88625 Pneumovax 15:17:19 INFLATED PAD BUFFER CPT-74194 Pneumovax 14:52:45 INFLATED PAD BUFFER CPT-00133 Venipuncture Draw Fee 14:06:30 INFLATED PAD BUFFER CPT-000 Give Appropriate Flu Vaccine 14:18:34 INFLATED PAD BUFFER 2 CPT-35458 Administration single or combination vac cine inc oral 14:46:00 INFLATED PAD BUFFER CPT-35784 Influenza split virus > age 3 14:46:00 INFLATED PAD BUFFER CPT-OV Office Visit 19:13:16 CDT CPT-64425 Zostavax 18:41:56 CDT CPT-87194 Administration single or combination vac cine inc oral 12:56:39 CDT CPT-51210 Zoster Vaccine (Zostavax) 12:56:39 CDT 2012 CPT-53271 Venipuncture Draw Fee 10:58:57 CDT CPT-75425 Sono pelvis non OB uterus ovaries cervix 17:45:04 CDT CPT-01543 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
--- OUTSIDE RECORDS SUMMARY | 2019-10-27 13:34 | XMS REPORT | Clinical Summary ---
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 Benign neoplasm of colon PERIPHERAL NEUROPATHY [...] ronary atherosclerosis of unspecified type of vessel, [place] or graft OTH NONSPC ABN FINDNG RAD&OTH [...] tablet by mouth daily LE VOTHYROXINE SODIUM 16116632576 Active Carina Tucker LPN Active GLIPIZIDE 10 MG TAB take 2 tablets twice daily GLIPIZIDE 21784207993 Active Baltazar Childers MD Active SUCRALFATE 1 GM TABS 1 four times a day to coat the stomach 2015 SUCRALFATE 12798790206 No Longer Active Baltazar Childers MD Active PEN NEEDLES 31G X 6 MM MISC use 1 daily INSULIN PEN NEEDLE 15048474821 Active Bella Suarez RECREATIONAL SPORTS DIRECTOR Active APARNAUONOFRE SOLOSTAR 300 UNIT/ML SC SOPN 10 units SC daily INSULIN GLARGINE 62844391246 No Longer Active Martita Godinez RMA Active LANT SOLOSTAR 100 UNIT/ML SC SOPN 10 units SC daily INSULIN GLARGINE 18929930655 Active Baltazar Childers MD Active NAPROXEN SODIUM 220 MG ORAL TABS 1 three times a day as needed 2 NAPROXEN SODIUM 87388036629 No Longer Active Baltazar Childers MD Active ATORVASTATIN CALCIUM 20 MG ORAL TABS Take 1 tab daily ATORVASTATIN CALCIUM 58377201016 Active Baltazar Childers MD Active FUROSEMIDE 40 MG TABS Take one by mouth daily FUROSEMIDE 79065490851 Active Baltazar Childers MD Active LISINOPRIL 20 MG TABS Take one by mouth daily at bedtime LISINOPRIL 19697615753 Active Baltazar Childers MD Active ONETOUCH ULTRA BLUE STRP Test twice a day GLUCO SE BLOOD 41165868904 No Longer Active Baltazar Childers MD Active TRUEPLUS LANCETS 33G MISC Test twice a day LANCET S 33443921984 Active KENDALL Juarez Active TRUEDRAW LANCING DEVICE MISC Test twice a day L ANCET DEVICES 58860038181 Active Baltazar Childers MD Active TRUETRACK TEST STRP Test twice a day GLUCOSE BLOO D 23433912945 Active KENDALL Juarez Active TRUEJONI BLOOD GLUCOSE W/DEVICE KIT Test twice a day BLOOD GLUCOSE MONITORING SUPPL 93244145284 Active Baltazar Childers MD Activ e HYDROCODONE-ACETAMINOPHEN 7.5-325 MG TABS Take 1 tab every 6-8 hour s PRN HYDROCODONE-ACETAMINOPHEN 72704434258 Active Baltazar Childers MD Active NORTRIPTYLINE HCL 50 MG CAPS 1 every night for neuropathy 4 NORTRIPTYLINE HCL 87868880313 Active Baltazar Childers MD Acti ve GABAPENTIN 300 MG CAPS 1 three times a day GABAPE NTIN 07628802434 Active Baltazar Childers MD Active GABAPENTIN 300 MG CAPS 1 po qd x 2 days, then 1 po BID x 2 d ays, then 1 po TID GABAPENTIN 06804061850 No Longer Active Baltazar silverman MD Active TRAMADOL HCL 50 MG TABS 1 twice a day as needed for pain TRAMADOL HCL 73533231127 Active Baltazar Childers MD Active NAPROXEN 500 MG TABS 1 tablet by mouth twice daily NAPROXEN 16570921310 No Longer Active Baltazar Childers MD Active PROAIR HFA 108 (90 BASE) MCG/ACT AERS 2 puffs four times a d ay as needed ALBUTEROL SULFATE 39785943645 Active Baltazar Childers MD Active DEPO-TESTOSTERONE 200 MG/ML OIL as directed RUFINO TOSTERONE CYPIONATE 47140389930 No Longer Active Baltazar Childers MD Active LIPITOR 20 MG TABS Take one by mouth daily in evening ATORVASTATIN CALCIUM 80109697968 No Longer Active aBltazar Childers MD Activ e CRESTOR 10 MG TABS 1 by mouth every day R OSUVASTATIN CALCIUM 79612695158 No Longer Active Baltazar Childers MD Activ e PHENTERMINE HCL 37.5 MG TABS Take one by mouth daily 2 PHENTERMINE HCL 62326039906 No Longer Active Baltazar Childers MD Activ e ROBAXIN-750 750 MG TABS Take one by mouth daily ME THOCARBAMOL 48242792244 Active Baltazar Childers MD Active TIZANIDINE HCL 4 MG TABS 1 daily as needed for muscle spasm 2011 TIZANIDINE HCL 10759408595 No Longer Active Dawna Salazar RN Active [id number] 50-325-40 MG TABS 1 four time s a day as needed for heacache VQEVMTOHCL-[id number] 02052073103 Active Baltazar Childers MD Active SUMATRIPTAN SUCCINATE 100 MG TABS 1 tablet by mouth at onset of migraine as needed SUMATRIPTAN SUCCINATE 59367199041 Active Shonna Cram er RECREATIONAL SPORTS DIRECTOR Active LORATADINE 10 MG TABS Take one by mouth daily LORATADINE 49883459257 Active KENDALL Juarez Active OMEPRAZOLE 20 MG CPDR Take one by mouth daily OMEPRAZOLE 91059069152 Active Baltazar Childers MD Active HYDROXYZINE HCL 25 MG TABS Take one by mouth daily HYDROXYZINE HCL 28157293969 Active Baltazar Childers MD Active ALPRAZOLAM 1 MG TABS 1 tablet by mouth daily at bedtime for restles s leg ALPRAZOLAM 08743953215 Active Baltazar Childers MD Active METFORMIN HCL 1000 MG TABS Take one by mouth twice daily METFORMIN HCL 50314758724 Active Baltazar Childers MD Active TIZANIDINE HCL 4 MG TABS 1 daily as needed for muscle spasm 2011 TIZANIDINE HCL 4 MG TABS 601520 TIZANIDINE HCL Inactiv e PHENTERMINE HCL 37.5 MG TABS Take one by mouth daily 2 PHENTERMINE HCL 37.5 MG TABS 252238 PHENTERMINE HCL Inactive CRESTOR 10 MG TABS 1 by mouth every day C RESTOR 10 MG TABS 599363 ROSUVASTATIN CALCIUM Inactive LIPITOR 20 MG TABS Take one by mouth daily in evening LIPITOR 20 MG TABS 409247 ATORVASTATIN CALCIUM Inactive DEPO-TESTOSTERONE 200 MG/ML OIL as directed 8 DEPO-TESTOSTERONE 200 MG/ML OIL 095633 TESTOSTERONE CYPIONATE Inactive NAPROXEN 500 MG TABS 1 tablet by mouth twice daily 201 07/27/22 NAPROXEN 500 MG TABS 180589 NAPROXEN Inactive GABAPENTIN 300 MG CAPS 1 po qd x 2 days, then 1 po BID x 2 d ays, then 1 po TID GABAPENTIN 300 MG CAPS 407554 GABAPENTIN Inact amie ONETOUCH ULTRA BLUE STRP Test twice a day ONETOUCH ULTRA BLUE STRP GLUCOSE BLOOD Inactive NAPROXEN SODIUM 220 MG ORAL TABS 1 three times a day as needed 2 NAPROXEN SODIUM 220 MG ORAL TABS 107622 NAPROXEN SODIUM Inactive TOURINKUO SOLOSTAR 300 UNIT/ML SC SOPN 10 units SC daily CELINA PARIKH 300 UNIT/ML SC SOPN INSULIN GLARGINE Inac tive SUCRALFATE 1 GM TABS 1 four times a day to coat the stomach 2015 SUCRALFATE 1 GM TABS 037426 SUCRALFATE Inactive Immunizations Vaccine Administration Date Value Standard Floyd cription pneumococcal immunization administered Pneumovax 23 [CVX33] pneumococcal polysaccharide vaccine, 23 valent Seasonal influenza vaccine, injectable, containing preservative, for > 3 years old (Afluria, FluLaval, Fluzone, Fluvirin, Fluarix, Agriflu(>= 18 yo)) Fluzone (>3 yrs.) [IGP481] Influenza, seasonal, inject able Seasonal influenza vaccine, injectable, containing preservative, for > 3 years old (Afluria, FluLaval, Fluzone, Fluvirin, Fluarix, Agriflu(>= 18 yo)) Fluzone (>3 yrs.) [FRI425] Influenza, seasonal, inject able Vital Signs Date [...] 4.5 mmol/L 3.5-5.2 sodium, serum 139 mmol/L 642-690 5204/06/19 sodium, serum 143 mmol/L 407-368 1517/06/19 potassium, serum 5.9 mmol/L 3.5-5.2 chloride, serum 105 mmol/L 98-107 carbon dioxide, venous blood 30.2 mmol/L 21.0-32 .0 blood glucose 189 mg/dL 65-110 calcium, serum 9.7 mg/dL 8.5-10.1 urea nitrogen, blood 37 mg/dL 7-18 creatinine, serum 2.11 mg/dL 0.55-1.30 hemoglobin A1C, blood, as % of total hemoglobin 8.2 % 4.3-6.0 Lab Report: CBC - Hematology mean corpuscular volume, RBC 97 fL 80-97 mean corpuscular hemoglobin, RBC 32.5 pg 27. 0-31.2 hemoglobin, blood 12.2 g/dL 12.0-16.0 hematocrit, blood 36.5 % 36.0-46.0 leukocyte count, blood 8.0 10^3/MM^3 10*3/mm3 4.6-10.2 mean corpuscular hemoglobin concentration, RBC 33.4 G/DL % 31.8-35.4 red blood cell distribution width 16.2 % 11 .6-14.8 platelet count 345 10^3/MM^3 10*3/mm3 836-962 3807/08/08 erythrocyte (RBC) count 3.75 10^6/MM^3 10*6/mm3 4.04-5.4 8 Lab Report: Comp. Metabolic Panel, Lipid Panel - Chemistry sodium, serum 143 mmol/L 912-061 0937/12/19 carbon dioxide, venous blood 32.5 mmol/L 21.0-32 .0 potassium, serum 4.9 mmol/L 3.5-5.2 chloride, serum 101 mmol/L 98-107 blood glucose 129 mg/dL 65-110 urea nitrogen, blood 18 mg/dL 7-18 creatinine, serum 1.79 mg/dL 0.55-1.30 alanine aminotransferase (SGPT), serum 34 U/L 12-78 aspartate aminotransferase (SGOT), serum 26 U/L 15-37 calcium, serum 8.9 mg/dL 8.5-10.1 bilirubin, serum, total 0.30 mg/dL 0.00-1.00 cholesterol, serum 214 mg/dL 210-803 9403/12/19 triglyceride, serum, fasting 351 mg/dL 30-200 HDL [...] Panel - Chemistry sodium, serum 141 mmol/L 647-399 8030/08/08 urea nitrogen, blood 30 mg/dL 7-18 calcium, serum 9.8 mg/dL 8.5-10.1 potassium, serum 4.9 mmol/L 3.5-5.2 chloride, serum 101 mmol/L 98-107 carbon dioxide, venous blood 34.1 mmol/L 21.0-32 .0 creatinine, serum 1.98 mg/dL 0.55-1.30 blood glucose 193 mg/dL 65-110 Encounters Code Encounter Date Provider Facility CPT-67389 Level 4 Est. Patient 14:22:31 CDT Baltazar Childers MD [facility]-66438 Level 4 Est. Patient 15:44:38 CDT Shonna Parker APRN [facility]-23801 Level 4 Est. Patient 11:34:17 CDT Baltazar Childers MD [facility]-34360 Level 3 Est. Patient 16:40:40 CDT Baltazar Childers MD [facility]-57540 Level 4 Est. Patient 10:41:24 CDT Baltazar Childers MD [facility]-68964 Level 4 Est. Patient 16:01:48 CDT Baltazar Childers MD [facility]-28508 Level 4 Est. Patient 16:54:07 AOC OPERATIONS INTELLIGENCE OFFICER Baltazar Childers MD [facility]-60415 Level 4 Est. Patient 15:42:12 CDT Baltazar Childers MD [facility] CPT-31176 Level 4 Est. Patient 11:29:55 CDT Baltazar Childers MD [facility] CPT-79956 Level 4 Est. Patient 14:15:19 CDT Baltazar Childers MD [facility] CPT-01675 Level 4 Est. Patient 12:20:13 CDT Baltazar Childers MD [facility] CPT-66318 Level 4 Est. Patient 14:52:45 AOC OPERATIONS INTELLIGENCE OFFICER Baltazar Childers MD [facility] CPT-97400 Level 4 Est. Patient 14:18:34 AOC OPERATIONS INTELLIGENCE OFFICER Baltazar Childers MD [facility] CPT-35234 Level 4 Est. Patient 15:18:29 CDT Balatzar Childers MD [facility] CPT-36261 Level 3 Est. Patient 12:45:34 CDT Baltazar Childers MD [facility] CPT-76650 Level 3 Est. Patient 10:10:11 CDT Baltazar Childers MD [facility] CPT-62601 Level 3 Est. Patient 14:07:50 CDT Baltazar Childers MD [facility] CPT-04967 Level 4 Est. Patient 12:26:10 AOC OPERATIONS INTELLIGENCE OFFICER Baltazar Childers MD [facility] CPT-47572 Level 4 Est. Patient 14:45:38 CDT Baltazar Childers MD [facility] CPT-57479 Level 4 New Patient 12:30:48 CDT Baltazar hinton MD [facility] Procedures Code Procedure Name Date Entry Date Standard Desc ription CPT-83749 Lipid - LAB USE ONLY 17:39:15 AOC OPERATIONS INTELLIGENCE OFFICER 9 CPT-26584 HGBA1C - LAB USE ONLY 17:39:15 AOC OPERATIONS INTELLIGENCE OFFICER CPT-96118 CMP - LAB USE ONLY 17:39:14 AOC OPERATIONS INTELLIGENCE OFFICER CPT-58526 Venipuncture Draw Fee 17:39:14 AOC OPERATIONS INTELLIGENCE OFFICER CPT-63095 First Vx - Ix admin via ID I M or jet injects without counseling by physician 16:55:17 AOC OPERATIONS INTELLIGENCE OFFICER CPT-43909 Fluzone Quadrivalent Intramuscular Suspe nsion 0.5 ML 16:55:17 AOC OPERATIONS INTELLIGENCE OFFICER CPT-78352 Renal Panel - LAB USE ONLY 17:39:20 CDT 201 10/31/07 CPT-63309 CBC - LAB USE ONLY 17:39:20 CDT CPT-30471 Venipuncture Draw Fee 17:39:20 CDT CPT-78813 Venipuncture Draw Fee 14:33:30 CDT CPT-49838 Renal Panel - LAB USE ONLY 14:33:30 CDT 201 10/31/07 CPT-11666 CBC - LAB USE ONLY 14:33:29 CDT CPT-40593 Venipuncture Draw Fee 14:50:21 AOC OPERATIONS INTELLIGENCE OFFICER CPT-30104 Immunization Single Admin 17:35:35 CDT 2014 CPT-54087 Fluzone Quadrivalent preservative free ( >=3yrs.) 17:35:35 CDT CPT-35000 Venipuncture Draw Fee 12:10:27 AOC OPERATIONS INTELLIGENCE OFFICER CPT-79882 Fluzone Quadrivalent Intramuscular Suspe nsion 0.5 ML 10:49:13 CDT CPT-72807 First Vx Component - Ix admi n via ID IM or jet inj without physician counseling 15:17:19 AOC OPERATIONS INTELLIGENCE OFFICER CPT-02818 Pneumovax 23 15:17:19 AOC OPERATIONS INTELLIGENCE OFFICER CPT-72857 Pneumovax 14:52:45 AOC OPERATIONS INTELLIGENCE OFFICER CPT-00004 Venipuncture Draw Fee 14:06:30 AOC OPERATIONS INTELLIGENCE OFFICER CPT-000 Give Appropriate Flu Vaccine 14:18:34 AOC OPERATIONS INTELLIGENCE OFFICER 2 CPT-98351 Administration single or combination vac cine inc oral 14:46:00 AOC OPERATIONS INTELLIGENCE OFFICER CPT-87295 Influenza split virus > age 3 14:46:00 AOC OPERATIONS INTELLIGENCE OFFICER CPT-OV Office Visit 19:13:16 CDT CPT-52711 Zostavax 18:41:56 CDT CPT-41078 Administration single or combination vac cine inc oral 12:56:39 CDT CPT-04334 Zoster Vaccine (Zostavax) 12:56:39 CDT 2012 CPT-03156 Venipuncture Draw Fee 10:58:57 CDT CPT-54159 Sono pelvis non OB uterus ovaries cervix 17:45:04 CDT CPT-32462 Sono retroperitoneal complete kidneys an d bladder 17:14:36 CDT CPT-OV Office Visit 14:59:38 AOC OPERATIONS INTELLIGENCE OFFICER CPT-J1070 Depo Testosterone 100 mg 14:50:13 CDT 03/05 CPT-61643 Abx/Therapy Injection 14:50:13 CDT CPT-17367 Administration single or combination vac cine inc oral 14:34:43 CDT CPT-73772 Influenza split virus > age 3 14:34:43 CDT CPT-J1070 Depo Testosterone 100 mg 17:37:13 CDT 01/11 CPT-62590 Abx/Therapy Injection 17:37:13 CDT CPT-39905 Venipuncture Draw Fee 16:30:13 CDT CPT-92153 Venipuncture Draw Fee 16:29:43 CDT CPT-J1070 Depo Testosterone 100 mg 14:45:38 CDT 01/11
--- OUTSIDE RECORDS SUMMARY | 2019-10-27 13:34 | XMS REPORT | Clinical Summary ---
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 Benign neoplasm of colon PERIPHERAL NEUROPATHY 356.9 [...] 1 tablet daily for 4 days AZITHROMYCIN 81533743674 Active Baltazar Wayne Active LANTUS SOLOSTAR 100 UNIT/ML SC SOPN 30 units SC daily INSULIN GLARGINE 38248625643 Active Baltazar Childers MD Active AMLODIPINE BESYLATE 5 MG ORAL TABS 1 tab daily for HTN AMLODIPINE BESYLATE 77734034113 Active Baltazar Childers MD Active SYNTHROID 0.1 MG TAB 1 tablet by mouth daily LE VOTHYROXINE SODIUM 46364014550 Active Baltazar Childers MD Active GLIPIZIDE 10 MG TAB take 2 tablets twice daily GLIPIZIDE 45191486787 Active Baltazar Childers MD Active SUCRALFATE 1 GM TABS 1 four times a day to coat the stomach 2015 SUCRALFATE 03103558662 No Longer Active Baltazar Childers MD Active PEN NEEDLES 31G X 6 MM MISC use 1 daily INSULIN PEN NEEDLE 11748043297 Active Gato Rae MD Active TOUJEO SOLOSTAR 300 UNIT/ML SC SOPN 10 units SC daily INSULIN GLARGINE 04859780525 No Longer Active Martita ARGUETA Active NAPROXEN SODIUM 220 MG ORAL TABS 1 three times a day as needed 2 NAPROXEN SODIUM 36673277941 No Longer Active Baltazar Childers MD Active ATORVASTATIN CALCIUM 20 MG ORAL TABS Take 1 tab daily ATORVASTATIN CALCIUM 83897509786 Active Baltazar Childers MD Active FUROSEMIDE 40 MG TABS Take one by mouth daily FUROSEMIDE 76540482937 Active Baltazar Childers MD Active LISINOPRIL 20 MG TABS Take one by mouth daily at bedtime LISINOPRIL 70191527147 No Longer Active Baltazar Childers MD Active ONETOUCH ULTRA BLUE STRP Test twice a day GLUCO SE BLOOD 46984600887 No Longer Active Baltazar Childers MD Active TRUEPLUS LANCETS 33G MISC Test twice a day LANCET S 35248904540 Active KENDALL Juarez Active TRUEDRAW LANCING DEVICE MISC Test twice a day L ANCET DEVICES 38607025449 Active Baltazar Childers MD Active TRUETRACK TEST STRP Test twice a day GLUCOSE BLOO D 45760005818 Active KENDALL Juarez Active TRUETRACK BLOOD GLUCOSE W/DEVICE KIT Test twice a day BLOOD GLUCOSE MONITORING SUPPL 65520664918 Active Baltazar Childers MD Activ e HYDROCODONE-ACETAMINOPHEN 7.5-325 MG TABS Take 1 tab every 6-8 hour s PRN HYDROCODONE-ACETAMINOPHEN 32314111974 Active Baltazar Childers MD Active NORTRIPTYLINE HCL 50 MG CAPS 1 every night for neuropathy 4 NORTRIPTYLINE HCL 38683232472 Active Baltazar Childers MD Acti ve GABAPENTIN 300 MG CAPS 1 three times a day GABAPE NTIN 33659987098 Active Baltazar Childers MD Active GABAPENTIN 300 MG CAPS 1 po qd x 2 days, then 1 po BID x 2 d ays, then 1 po TID GABAPENTIN 39392032253 No Longer Active Baltazar silverman MD Active TRAMADOL HCL 50 MG TABS 1 twice a day as needed for pain TRAMADOL HCL 84956443542 Active Baltazar Childers MD Active NAPROXEN 500 MG TABS 1 tablet by mouth twice daily NAPROXEN 01870413270 No Longer Active Baltazar Childers MD Active PROAIR HFA 108 (90 BASE) MCG/ACT AERS 2 puffs four times a d ay as needed ALBUTEROL SULFATE 73223433713 Active Baltazar Childers MD Active DEPO-TESTOSTERONE 200 MG/ML OIL as directed RUFINO TOSTERONE CYPIONATE 97931731941 No Longer Active Baltazar Childers MD Active LIPITOR 20 MG TABS Take one by mouth daily in evening ATORVASTATIN CALCIUM 83665017471 No Longer Active Baltazar Childers MD Activ e CRESTOR 10 MG TABS 1 by mouth every day R OSUVASTATIN CALCIUM 06843678349 No Longer Active Baltazar Childers MD Activ e PHENTERMINE HCL 37.5 MG TABS Take one by mouth daily 2 PHENTERMINE HCL 06594596690 No Longer Active Baltazar Childers MD Activ e ROBAXIN-750 750 MG TABS Take one by mouth daily ME THOCARBAMOL 53673997268 Active Baltazar Childers MD Active TIZANIDINE HCL 4 MG TABS 1 daily as needed for muscle spasm 2011 TIZANIDINE HCL 39996128062 No Longer Active Dawnatung Salazar RN Active [id number] 50-325-40 MG TABS 1 four time s a day as needed for heacache [id number] 89886314503 Active BethCÉSAR HazelTung Active SUMATRIPTAN SUCCINATE 100 MG TABS 1 tablet by mouth at onset of migraine as needed SUMATRIPTAN SUCCINATE 81355403301 Active Baltazar bynum MD Active LORATADINE 10 MG TABS Take one by mouth daily LORATADINE 41664331450 Active Baltazar Childers MD Active OMEPRAZOLE 20 MG CPDR Take one by mouth daily OMEPRAZOLE 28558018520 Active Baltazar Childers MD Active HYDROXYZINE HCL 25 MG TABS Take one by mouth daily HYDROXYZINE HCL 55854766828 Active Baltazar Childers MD Active ALPRAZOLAM 1 MG TABS 1 tablet by mouth daily at bedtime for restles s leg ALPRAZOLAM 62934749296 Active Baltazar Childers MD Active METFORMIN HCL 1000 MG TABS Take one by mouth twice daily METFORMIN HCL 54287505009 Active Baltazar Childers MD Active TIZANIDINE HCL 4 MG TABS 1 daily as needed for muscle spasm 2011 TIZANIDINE HCL 4 MG TABS 459180 TIZANIDINE HCL Inactiv e PHENTERMINE HCL 37.5 MG TABS Take one by mouth daily 2 PHENTERMINE HCL 37.5 MG TABS 527049 PHENTERMINE HCL Inactive CRESTOR 10 MG TABS 1 by mouth every day C RESTOR 10 MG TABS 857733 ROSUVASTATIN CALCIUM Inactive LIPITOR 20 MG TABS Take one by mouth daily in evening LIPITOR 20 MG TABS 734723 ATORVASTATIN CALCIUM Inactive DEPO-TESTOSTERONE 200 MG/ML OIL as directed 8 DEPO-TESTOSTERONE 200 MG/ML OIL 300722 TESTOSTERONE CYPIONATE Inactive NAPROXEN 500 MG TABS 1 tablet by mouth twice daily 201 07/27/22 NAPROXEN 500 MG TABS 722482 NAPROXEN Inactive GABAPENTIN 300 MG CAPS 1 po qd x 2 days, then 1 po BID x 2 d ays, then 1 po TID GABAPENTIN 300 MG CAPS 320002 GABAPENTIN Inact amie ONETOUCH ULTRA BLUE STRP Test twice a day ONETOUCH ULTRA BLUE STRP GLUCOSE BLOOD Inactive NAPROXEN SODIUM 220 MG ORAL TABS 1 three times a day as needed 2 NAPROXEN SODIUM 220 MG ORAL TABS 350677 NAPROXEN SODIUM Inactive TOUJEO SOLOSTAR 300 UNIT/ML SC SOPN 10 units SC daily TOUJEO SOLOSTAR 300 UNIT/ML SC SOPN INSULIN GLARGINE Inac tive SUCRALFATE 1 GM TABS 1 four times a day to coat the stomach 2015 SUCRALFATE 1 GM TABS 746224 SUCRALFATE Inactive Immunizations Vaccine Administration Date Value Standard Floyd cription pneumococcal immunization administered Pneumovax 23 [CVX33] pneumococcal polysaccharide vaccine, 23 valent Seasonal influenza vaccine, injectable, containing preservative, for > 3 years old (Afluria, FluLaval, Fluzone, Fluvirin, Fluarix, Agriflu(>= 18 yo)) Fluzone (>3 yrs.) [VIQ978] Influenza, seasonal, inject able Seasonal influenza vaccine, injectable, containing preservative, for > 3 years old (Afluria, FluLaval, Fluzone, Fluvirin, Fluarix, Agriflu(>= 18 yo)) Fluzone (>3 yrs.) [RGV557] Influenza, seasonal, inject able Vital Signs Date [...] - Chem istry sodium, serum 139 mmol/L 356-717 6176/10/03 potassium, serum 4.7 mmol/L 3.5-5.2 chloride, serum 98 mmol/L 98-107 carbon dioxide, venous blood 28.7 mmol/L 21.0-32 .0 blood glucose 218 mg/dL 65-110 calcium, serum 9.8 mg/dL 8.5-10.1 urea nitrogen, blood 19 mg/dL 7-18 creatinine, serum 1.68 mg/dL 0.60-1.30 Lab Report: Basic Metabolic Panel, HGBA1 C - Chemistry sodium, serum 143 mmol/L 552-111 2120/06/19 potassium, serum 5.9 mmol/L 3.5-5.2 chloride, serum 105 mmol/L 98-107 carbon dioxide, venous blood 30.2 mmol/L 21.0-32 .0 blood glucose 189 mg/dL 65-110 calcium, serum 9.7 mg/dL 8.5-10.1 urea nitrogen, blood 37 mg/dL 7-18 creatinine, serum 2.11 mg/dL 0.55-1.30 hemoglobin A1C, blood, as % of total hemoglobin 8.2 % 4.3-6.0 Lab Report: CBC, Renal Panel - Chemistry sodium, serum 142 mmol/L 092-576 9619/08/11 potassium, serum 4.8 mmol/L 3.5-5.2 chloride, serum [...] Panel - Chemistry sodium, serum 143 mmol/L 688-393 4713/12/19 carbon dioxide, venous blood 32.5 mmol/L 21.0-32 .0 potassium, serum 4.9 mmol/L 3.5-5.2 chloride, serum 101 mmol/L 98-107 blood glucose 129 mg/dL 65-110 urea nitrogen, blood 18 mg/dL 7-18 creatinine, serum 1.79 mg/dL 0.55-1.30 alanine aminotransferase (SGPT), serum 34 U/L 12-78 aspartate aminotransferase (SGOT), serum 26 U/L 15-37 calcium, serum 8.9 mg/dL 8.5-10.1 bilirubin, serum, total 0.30 mg/dL 0.00-1.00 cholesterol, serum 214 mg/dL 832-054 7529/12/19 triglyceride, serum, fasting 351 mg/dL 30-200 HDL [...] 4.3-6.0 Encounters Code Encounter Date Provider Facility CPT-21644 Level 4 Est. Patient 12:25:11 CDT Baltazar Childers MD [facility]-14575 Level 4 Est. Patient 14:22:31 CDT Baltazar Childers MD [facility]-29154 Level 4 Est. Patient 15:44:38 CDT Shonnajean Parker APRN [facility]-22252 Level 4 Est. Patient 11:34:17 CDT Baltazar Childers MD [facility]-32344 Level 3 Est. Patient 16:40:40 CDT Baltazar Childers MD [facility]-72121 Level 4 Est. Patient 10:41:24 CDT Baltazar Childers MD [facility]-68009 Level 4 Est. Patient 16:01:48 CDT Baltazar Childers MD [facility]-24417 Level 4 Est. Patient 16:54:07 BAKER TEST Baltazar Childers MD [facility]-52908 Level 4 Est. Patient 15:42:12 CDT Baltazar Childers MD [facility] CPT-94676 Level 4 Est. Patient 11:29:55 CDT Baltazar Childers MD [facility]-47996 Level 4 Est. Patient 14:15:19 CDT Baltazar Childers MD [facility]-74203 Level 4 Est. Patient 12:20:13 CDT Baltazar Childers MD [facility] CPT-16013 Level 4 Est. Patient 14:52:45 BAKER TEST Baltazar Childers MD [facility] CPT-63210 Level 4 Est. Patient 14:18:34 BAKER TEST Baltazar Childers MD [facility]-32739 Level 4 Est. Patient 15:18:29 CDT Baltazar Childers MD [facility]-19830 Level 3 Est. Patient 12:45:34 CDT Baltazar Childers MD [facility] CPT-95294 Level 3 Est. Patient 10:10:11 CDT Baltazar Childers MD [facility] CPT-81618 Level 3 Est. Patient 14:07:50 CDT Baltazar Childers MD [facility] CPT-55371 Level 4 Est. Patient 12:26:10 BAKER TEST Baltazar Childers MD [facility] CPT-33889 Level 4 Est. Patient 14:45:38 CDT Baltazar Childers MD [facility] CPT-96131 Level 4 New Patient 12:30:48 CDT Baltazar hinton MD [facility] Procedures Code Procedure Name Date Entry Date Standard Desc ription CPT-25259 First Vx - Ix admin via ID I M or jet injects without counseling by physician 13:08:59 CDT CPT-46409 Fluzone Quadrivalent Intramuscular Suspe nsion 0.5 ML 13:08:59 CDT CPT-39624 Venipuncture Draw Fee 12:04:12 CDT CPT-74116 Lipid - LAB USE ONLY 17:39:15 BAKER TEST 9 CPT-53593 HGBA1C - LAB USE ONLY 17:39:15 BAKER TEST CPT-22799 CMP - LAB USE ONLY 17:39:14 BAKER TEST CPT-12861 Venipuncture Draw Fee 17:39:14 BAKER TEST CPT-60698 First Vx - Ix admin via ID I M or jet injects without counseling by physician 16:55:17 BAKER TEST CPT-21412 Fluzone Quadrivalent Intramuscular Suspe nsion 0.5 ML 16:55:17 BAKER TEST CPT-62571 Renal Panel - LAB USE ONLY 17:39:20 CDT 201 10/31/07 CPT-51119 CBC - LAB USE ONLY 17:39:20 CDT CPT-92570 Venipuncture Draw Fee 17:39:20 CDT CPT-06796 Venipuncture Draw Fee 14:33:30 CDT CPT-67761 Renal Panel - LAB USE ONLY 14:33:30 CDT 201 10/31/07 CPT-69217 CBC - LAB USE ONLY 14:33:29 CDT CPT-92053 Venipuncture Draw Fee 14:50:21 BAKER TEST CPT-22481 Immunization Single Admin 17:35:35 CDT 2014 CPT-20880 Fluzone Quadrivalent preservative free ( >=3yrs.) 17:35:35 CDT CPT-51973 Venipuncture Draw Fee 12:10:27 BAKER TEST CPT-90577 Fluzone Quadrivalent Intramuscular Suspe nsion 0.5 ML 10:49:13 CDT CPT-22011 First Vx Component - Ix admi n via ID IM or jet inj without physician counseling 15:17:19 BAKER TEST CPT-79745 Pneumovax 23 15:17:19 BAKER TEST CPT-99753 Pneumovax 14:52:45 BAKER TEST CPT-55547 Venipuncture Draw Fee 14:06:30 BAKER TEST CPT-000 Give Appropriate Flu Vaccine 14:18:34 BAKER TEST 2 CPT-85833 Administration single or combination vac cine inc oral 14:46:00 BAKER TEST CPT-66774 Influenza split virus > age 3 14:46:00 BAKER TEST CPT-OV Office Visit 19:13:16 CDT CPT-63005 Zostavax 18:41:56 CDT CPT-86154 Administration single or combination vac cine inc oral 12:56:39 CDT CPT-86449 Zoster Vaccine (Zostavax) 12:56:39 CDT 2012 CPT-37648 Venipuncture Draw Fee 10:58:57 CDT CPT-68098 Sono pelvis non OB uterus ovaries cervix 17:45:04 CDT CPT-74189 Sono retroperitoneal complete kidneys an d bladder 17:14:36 CDT CPT-OV Office Visit 14:59:38 BAKER TEST CPT-J1070 Depo Testosterone 100 mg 14:50:13 CDT 03/05 CPT-14238 Abx/Therapy Injection 14:50:13 CDT CPT-90271 Administration single or combination vac cine inc oral 14:34:43 CDT CPT-96427 Influenza split virus > age 3 14:34:43 CDT CPT-J1070 Depo Testosterone 100 mg 17:37:13 CDT 01/11 CPT-30463 Abx/Therapy Injection 17:37:13 CDT CPT-63895 Venipuncture Draw Fee 16:30:13 CDT CPT-69714 Venipuncture Draw Fee 16:29:43 CDT CPT-J1070 Depo Testosterone 100 mg 14:45:38 CDT 01/11
--- NOTE | 2019-10-27 13:35 | NUR ---
ABG done x 1 attempt by Karen KING in patient's left wrist and sent to lab.
--- OUTSIDE RECORDS SUMMARY | 2019-10-27 13:35 | XMS REPORT | Clinical Summary ---
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 Benign neoplasm of colon PERIPHERAL NEUROPATHY [...] y atherosclerosis of unspecified type of vessel, salt river or graft OTH NONSPC ABN FINDNG [...] MISC Test twice a day LANCET S 65706745949 Active Baltazar Childers MD Active TRUEDRAW LANCING DEVICE MISC Test twice a day L ANCET DEVICES 51736304758 Active Baltazar Childers MD Active TRUETRACK TEST STRP Test twice a day GLUCOSE BLOO D 22459426828 Active Baltazar Childers MD Active TRUETRACK BLOOD GLUCOSE W/DEVICE KIT Test twice a day BLOOD GLUCOSE MONITORING SUPPL 49921956521 Active Bella Suarez APRN Active HYDROCODONE-ACETAMINOPHEN 7.5-325 MG TABS Take 1 tab every 6-8 hour s PRN HYDROCODONE-ACETAMINOPHEN 02503693583 Active Baltazar Childers MD Active NORTRIPTYLINE HCL 50 MG CAPS 1 every night for neuropathy 4 NORTRIPTYLINE HCL 68801079963 Active Bella Suarez APRN Active GABAPENTIN 300 MG CAPS 1 three times a day GABAPE NTIN 58594690629 Active Baltazar Childers MD Active GABAPENTIN 300 MG CAPS 1 po qd x 2 days, then 1 po BID x 2 d ays, then 1 po TID GABAPENTIN 80893940534 No Longer Active Baltazar silverman MD Active TRAMADOL HCL 50 MG TABS 1 twice a day as needed for pain TRAMADOL HCL 68629092724 Active Baltazar Childers MD Active NAPROXEN 500 MG TABS 1 tablet by mouth twice daily NAPROXEN 25088305351 No Longer Active Baltazar Childers MD Active PROAIR HFA 108 (90 BASE) MCG/ACT AERS 2 puffs four times a d ay as needed ALBUTEROL SULFATE 43410114875 Active Baltazar Childers MD Active DEPO-TESTOSTERONE 200 MG/ML OIL as directed RUFINO TOSTERONE CYPIONATE 10419079003 No Longer Active Baltazar Childers MD Active LIPITOR 20 MG TABS Take one by mouth daily in evening ATORVASTATIN CALCIUM 78318581490 No Longer Active Baltazar Childers MD Activ e CRESTOR 10 MG TABS 1 by mouth every day R OSUVASTATIN CALCIUM 92860423751 No Longer Active Baltazar Childers MD Activ e PHENTERMINE HCL 37.5 MG TABS Take one by mouth daily 2 PHENTERMINE HCL 07480613366 No Longer Active Baltazar Childers MD Activ e ROBAXIN-750 750 MG TABS Take one by mouth daily ME THOCARBAMOL 36186467723 Active Baltazar Childers MD Active TIZANIDINE HCL 4 MG TABS 1 daily as needed for muscle spasm 2011 TIZANIDINE HCL 18648522299 No Longer Active Dawna Salazar RN Active LogicworksUCH ULTRA BLUE STRP Test twice a day GLUCO SE BLOOD 44594779619 Active Baltazar Childers MD Active GOTLOIZLOY-[id number]-[id number] 50-325-40 MG TABS 1 four time s a day as needed for heacache [id number] 71976066913 Active Baltazar Childers MD Active SUMATRIPTAN SUCCINATE 100 MG TABS 1 tablet by mouth at onset of migraine as needed SUMATRIPTAN SUCCINATE 49041671894 Active Baltazar barron MD Active LORATADINE 10 MG TABS Take one by mouth daily LORATADINE 49360968805 Active Baltazar Childers MD Active FUROSEMIDE 40 MG TABS Take one by mouth daily FUROSEMIDE 16861867415 Active Baltazar Childers MD Active LISINOPRIL 20 MG TABS Take one by mouth daily at bedtime LISINOPRIL 23742118938 Active Bella Suarez APRN Active OMEPRAZOLE 20 MG CPDR Take one by mouth daily OMEPRAZOLE 81302875629 Active Baltazar Childers MD Active HYDROXYZINE HCL 25 MG TABS Take one by mouth daily HYDROXYZINE HCL 38735845273 Active Baltazar Childers MD Active GLIPIZIDE 10 MG TABS 1 tablet by mouth twice daily GLIPIZIDE 48228725937 Active Baltazar Childers MD Active ALPRAZOLAM 1 MG TABS 1 tablet by mouth daily at bedtime for restles s leg ALPRAZOLAM 96281573319 Active Baltazar Childers MD Active METFORMIN HCL 1000 MG TABS Take one by mouth twice daily METFORMIN HCL 41553317805 Active Baltazar Childers MD Active TIZANIDINE HCL 4 MG TABS 1 daily as needed for muscle spasm 2011 TIZANIDINE HCL 4 MG TABS 470985 TIZANIDINE HCL Inactiv e PHENTERMINE HCL 37.5 MG TABS Take one by mouth daily 2 PHENTERMINE HCL 37.5 MG TABS 577601 PHENTERMINE HCL Inactive CRESTOR 10 MG TABS 1 by mouth every day C RESTOR 10 MG TABS ROSUVASTATIN CALCIUM Inactive LIPITOR 20 MG TABS Take one by mouth daily in evening LIPITOR 20 MG TABS 765440 ATORVASTATIN CALCIUM Inactive DEPO-TESTOSTERONE 200 MG/ML OIL as directed 8 DEPO-TESTOSTERONE 200 MG/ML OIL 139947 TESTOSTERONE CYPIONATE Inactive NAPROXEN 500 MG TABS 1 tablet by mouth twice daily 201 07/27/22 NAPROXEN 500 MG TABS 778529 NAPROXEN Inactive GABAPENTIN 300 MG CAPS 1 po qd x 2 days, then 1 po BID x 2 d ays, then 1 po TID GABAPENTIN 300 MG CAPS 404084 GABAPENTIN Inact amie Immunizations Vaccine Administration Date Value Standard Floyd cription pneumococcal immunization administered Pneumovax 23 [CVX33] pneumococcal polysaccharide vaccine, 23 valent Seasonal influenza vaccine, injectable, containing preservative, for > 3 years old (Afluria, FluLaval, Fluzone, Fluvirin, Fluarix, Agriflu(>= 18 yo)) Fluzone (>3 yrs.) [ISO211] Influenza, seasonal, inject able Seasonal influenza vaccine, injectable, containing preservative, for > 3 years old (Afluria, FluLaval, Fluzone, Fluvirin, Fluarix, Agriflu(>= 18 yo)) Fluzone (>3 yrs.) [HHS432] Influenza, seasonal, inject able Vital Signs Date [...] Panel - Chemistry sodium, serum 139 mmol/L 402-186 7447/01/20 potassium, serum 5.3 mmol/L 3.5-5.2 chloride, serum [...] mg/g mg/g{creat} 0-29 cholesterol, serum 319 mg/dL 136-095 2778/08/21 triglyceride, serum, fasting 546 mg/dL 30-200 HDL cholesterol, serum 39 mg/dL 32-96 LDL cholesterol, serum 167.00 mg/dL 5.00-130.00 hemoglobin A1C, blood, as % of total hemoglobin 7.7 % 4.3-6.0 sodium, serum 138 mmol/L 712-945 4759/08/21 potassium, serum 4.3 mmol/L 3.5-5.2 chloride, serum [...] 0-19 Encounters Code Encounter Date Provider Facility CPT-45383 Level 4 Est. Patient 14:15:19 CDT Baltazar Childers MD [facility] CPT-04305 Level 4 Est. Patient 12:20:13 CDT Baltazar Childers MD [facility] CPT-46597 Level 4 Est. Patient 14:52:45 TASSEL SNIPPER Baltazar Childers MD [facility] CPT-01543 Level 4 Est. Patient 14:18:34 TASSEL SNIPPER Baltazar Childers MD [facility] CPT-34037 Level 4 Est. Patient 15:18:29 CDT Baltazar Childers MD [facility] CPT-89901 Level 3 Est. Patient 12:45:34 CDT Baltazar Childers MD [facility] CPT-15872 Level 3 Est. Patient 10:10:11 CDT Baltazar Childers MD [facility] CPT-62972 Level 3 Est. Patient 14:07:50 CDT Baltazar Childers MD [facility] CPT-50764 Level 4 Est. Patient 12:26:10 TASSEL SNIPPER Baltazar Childers MD [facility] CPT-45437 Level 4 Est. Patient 14:45:38 CDT Baltazar Childers MD [facility] CPT-27273 Level 4 New Patient 12:30:48 CDT Baltazar hinton MD [facility] Procedures Code Procedure Name Date Entry Date Standard Desc ription CPT-01138 Venipuncture Draw Fee 12:10:27 TASSEL SNIPPER CPT-49119 Fluzone Quadrivalent Intramuscular Suspe nsion 0.5 ML 10:49:13 CDT CPT-57736 First Vx Component - Ix admi n via ID IM or jet inj without physician counseling 15:17:19 TASSEL SNIPPER CPT-91652 Pneumovax 23 15:17:19 TASSEL SNIPPER CPT-46677 Pneumovax 14:52:45 TASSEL SNIPPER CPT-25149 Venipuncture Draw Fee 14:06:30 TASSEL SNIPPER CPT-000 Give Appropriate Flu Vaccine 14:18:34 TASSEL SNIPPER 2 CPT-38909 Administration single or combination vac cine inc oral 14:46:00 TASSEL SNIPPER CPT-00913 Influenza split virus > age 3 14:46:00 TASSEL SNIPPER CPT-OV Office Visit 19:13:16 CDT CPT-66140 Zostavax 18:41:56 CDT CPT-74259 Administration single or combination vac cine inc oral 12:56:39 CDT CPT-62657 Zoster Vaccine (Zostavax) 12:56:39 CDT 2012 CPT-22789 Venipuncture Draw Fee 10:58:57 CDT CPT-07258 Sono pelvis non OB uterus ovaries cervix 17:45:04 CDT CPT-14261 Sono retroperitoneal complete kidneys an d bladder 17:14:36 CDT CPT-OV Office Visit 14:59:38 TASSEL SNIPPER CPT-J1070 Depo Testosterone 100 mg 14:50:13 CDT 03/05 CPT-05442 Abx/Therapy Injection 14:50:13 CDT CPT-30832 Administration single or combination vac cine inc oral 14:34:43 CDT CPT-12552 Influenza split virus > age 3 14:34:43 CDT CPT-J1070 Depo Testosterone 100 mg 17:37:13 CDT 01/11 CPT-94546 Abx/Therapy Injection 17:37:13 CDT CPT-96719 Venipuncture Draw Fee 16:30:13 CDT CPT-13640 Venipuncture Draw Fee 16:29:43 CDT CPT-J1070 Depo Testosterone 100 mg 14:45:38 CDT 01/11
--- OUTSIDE RECORDS SUMMARY | 2019-10-27 13:35 | XMS REPORT | Clinical Summary ---
Author Author Admin, Elba Lance Michelle [facility] [...] libido COLON POLYPS 211.3 Resolved Lolis Thomas [employer] Benign neoplasm of colon PERIPHERAL NEUROPATHY [...] ronary atherosclerosis of unspecified type of vessel, eyak or graft OTH NONSPC ABN FINDNG RAD&OTH [...] a day as needed 2 NAPROXEN SODIUM 26184392334 No Longer Active Baltazar Childers MD Active ATORVASTATIN CALCIUM 20 MG ORAL TABS Take 1 tab daily ATORVASTATIN CALCIUM 39982117032 Active KENDALL Juarez Active FUROSEMIDE 40 MG TABS Take one by mouth daily FUROSEMIDE 08688860340 Active Baltazra Childers MD Active LISINOPRIL 20 MG TABS Take one by mouth daily at bedtime LISINOPRIL 18219208802 Active KENDALL Juarez Active ONETOUCH ULTRA BLUE STRP Test twice a day GLUCO SE BLOOD 01055491273 No Longer Active Baltazar Childers MD Active TRUEPLUS LANCETS 33G MISC Test twice a day LANCET S 32476708774 Active KENDALL Juarez Active TRUEDRAW LANCING DEVICE MISC Test twice a day L ANCET DEVICES 01904453468 Active Baltazar Childers MD Active TRUETRACK TEST STRP Test twice a day GLUCOSE BLOO D 72746027881 Active Baltazar Childers MD Active TRUETRACK BLOOD GLUCOSE W/DEVICE KIT Test twice a day BLOOD GLUCOSE MONITORING SUPPL 81790873163 Active Baltazar Childers MD Activ e HYDROCODONE-ACETAMINOPHEN 7.5-325 MG TABS Take 1 tab every 6-8 hour s PRN HYDROCODONE-ACETAMINOPHEN 21611325691 Active Baltazar Childers MD Active NORTRIPTYLINE HCL 50 MG CAPS 1 every night for neuropathy 4 NORTRIPTYLINE HCL 47933921961 Active Baltazar Childers MD Acti ve GABAPENTIN 300 MG CAPS 1 three times a day GABAPE NTIN 65624944178 Active KENDALL Juarez Active GABAPENTIN 300 MG CAPS 1 po qd x 2 days, then 1 po BID x 2 d ays, then 1 po TID GABAPENTIN 42010492974 No Longer Active Baltazar silverman MD Active TRAMADOL HCL 50 MG TABS 1 twice a day as needed for pain TRAMADOL HCL 45247087293 Active Baltazar Childers MD Active NAPROXEN 500 MG TABS 1 tablet by mouth twice daily NAPROXEN 51004352719 No Longer Active Baltazar Childers MD Active PROAIR HFA 108 (90 BASE) MCG/ACT AERS 2 puffs four times a d ay as needed ALBUTEROL SULFATE 43922327148 Active KENDALL Juarez Active DEPO-TESTOSTERONE 200 MG/ML OIL as directed RUFINO TOSTERONE CYPIONATE 27805547593 No Longer Active Baltazar Childers MD Active LIPITOR 20 MG TABS Take one by mouth daily in evening ATORVASTATIN CALCIUM 77474095399 No Longer Active Baltazar Childers MD Activ e CRESTOR 10 MG TABS 1 by mouth every day R OSUVASTATIN CALCIUM 03451749121 No Longer Active Baltazar Childers MD Activ e PHENTERMINE HCL 37.5 MG TABS Take one by mouth daily 2 PHENTERMINE HCL 25526512712 No Longer Active Baltazar Childers MD Activ e ROBAXIN-750 750 MG TABS Take one by mouth daily ME THOCARBAMOL 83675209733 Active Baltazar Childers MD Active TIZANIDINE HCL 4 MG TABS 1 daily as needed for muscle spasm 2011 TIZANIDINE HCL 99904747264 No Longer Active Dawna Salazar RN Active [id number] 50-325-40 MG TABS 1 four time s a day as needed for heacache [id number] 37735516586 Active Baltazar Childers MD Active SUMATRIPTAN SUCCINATE 100 MG TABS 1 tablet by mouth at onset of migraine as needed SUMATRIPTAN SUCCINATE 39442438380 Active KENDALL Juarez Active LORATADINE 10 MG TABS Take one by mouth daily LORATADINE 30561639679 Active Baltazar Childers MD Active OMEPRAZOLE 20 MG CPDR Take one by mouth daily OMEPRAZOLE 95924943214 Active Baltazar Childers MD Active HYDROXYZINE HCL 25 MG TABS Take one by mouth daily HYDROXYZINE HCL 52543264579 Active Baltazar Childers MD Active GLIPIZIDE 10 MG TABS 1 tablet by mouth twice daily GLIPIZIDE 09568612940 Active Bella Suarez APRN Active ALPRAZOLAM 1 MG TABS 1 tablet by mouth daily at bedtime for restles s leg ALPRAZOLAM 93604512070 Active Baltazar Childers MD Active METFORMIN HCL 1000 MG TABS Take one by mouth twice daily METFORMIN HCL 39947510874 Active Baltazar Childers MD Active TIZANIDINE HCL 4 MG TABS 1 daily as needed for muscle spasm 2011 TIZANIDINE HCL 4 MG TABS 515914 TIZANIDINE HCL Inactiv e PHENTERMINE HCL 37.5 MG TABS Take one by mouth daily 2 PHENTERMINE HCL 37.5 MG TABS 953614 PHENTERMINE HCL Inactive CRESTOR 10 MG TABS 1 by mouth every day C RESTOR 10 MG TABS ROSUVASTATIN CALCIUM Inactive LIPITOR 20 MG TABS Take one by mouth daily in evening LIPITOR 20 MG TABS 963750 ATORVASTATIN CALCIUM Inactive DEPO-TESTOSTERONE 200 MG/ML OIL as directed 8 DEPO-TESTOSTERONE 200 MG/ML OIL 873544 TESTOSTERONE CYPIONATE Inactive NAPROXEN 500 MG TABS 1 tablet by mouth twice daily 201 07/27/22 NAPROXEN 500 MG TABS 364793 NAPROXEN Inactive GABAPENTIN 300 MG CAPS 1 po qd x 2 days, then 1 po BID x 2 d ays, then 1 po TID GABAPENTIN 300 MG CAPS 620366 GABAPENTIN Inact amie ONETOUCH ULTRA BLUE STRP Test twice a day ONETOUCH ULTRA BLUE STRP GLUCOSE BLOOD Inactive NAPROXEN SODIUM 220 MG ORAL TABS 1 three times a day as needed 2 NAPROXEN SODIUM 220 MG ORAL TABS 433680 NAPROXEN SODIUM Inactive Immunizations Vaccine Administration Date Value Standard Floyd cription pneumococcal immunization administered Pneumovax 23 [CVX33] pneumococcal polysaccharide vaccine, 23 valent Seasonal influenza vaccine, injectable, containing preservative, for > 3 years old (Afluria, FluLaval, Fluzone, Fluvirin, Fluarix, Agriflu(>= 18 yo)) Fluzone (>3 yrs.) [[id number]] Influenza, seasonal, inject able Seasonal influenza vaccine, injectable, containing preservative, for > 3 years old (Afluria, FluLaval, Fluzone, Fluvirin, Fluarix, Agriflu(>= 18 yo)) Fluzone (>3 yrs.) [[id number]] Influenza, seasonal, inject able Vital Signs Date [...] 7.9 % 4.3-6.0 sodium, serum 139 mmol/L 916-291 1235/02/04 potassium, serum 5.4 mmol/L 3.5-5.2 chloride, serum [...] Panel - Chemistry sodium, serum 138 mmol/L 067-233 5693/11/23 carbon dioxide, venous blood 32.4 mmol/L 21.0-32 .0 potassium, serum 5.7 mmol/L 3.5-5.2 chloride, serum 98 mmol/L 98-107 blood glucose 136 mg/dL 65-110 urea nitrogen, blood 18 mg/dL 7-18 creatinine, serum 1.71 mg/dL 0.55-1.30 alanine aminotransferase (SGPT), serum 71 U/L 12-78 aspartate aminotransferase (SGOT), serum 34 U/L 15-37 calcium, serum 9.4 mg/dL 8.5-10.1 bilirubin, serum, total 0.40 mg/dL 0.00-1.00 cholesterol, serum 405 mg/dL 479-576 0890/11/23 triglyceride, serum, fasting 709 mg/dL 30-200 HDL [...] mg/dL Encounters Code Encounter Date Provider Facility CPT-72631 Level 4 Est. Patient 16:01:48 CDT Baltazar Childers MD [facility] CPT-03657 Level 4 Est. Patient 16:54:07 [employer] Baltazar Childers MD [facility] CPT-64290 Level 4 Est. Patient 15:42:12 CDT Baltazar Childers MD [facility] CPT-25641 Level 4 Est. Patient 11:29:55 CDT Baltazar Childers MD [facility] CPT-80214 Level 4 Est. Patient 14:15:19 CDT Baltazar Childers MD [facility] CPT-54179 Level 4 Est. Patient 12:20:13 CDT Baltazar Childers MD [facility] CPT-10562 Level 4 Est. Patient 14:52:45 [employer] Baltazar Childers MD [facility] CPT-25207 Level 4 Est. Patient 14:18:34 [employer] Baltazar Childers MD [facility] CPT-77449 Level 4 Est. Patient 15:18:29 CDT Baltazar Childers MD [facility] CPT-91279 Level 3 Est. Patient 12:45:34 CDT Baltazar Childers MD [facility] CPT-85605 Level 3 Est. Patient 10:10:11 CDT Baltazar Childers MD [facility] CPT-04915 Level 3 Est. Patient 14:07:50 CDT Baltazar Childers MD [facility] CPT-36093 Level 4 Est. Patient 12:26:10 [employer] Baltazar Childers MD [facility] CPT-77720 Level 4 Est. Patient 14:45:38 CDT Baltazar Childers MD [facility] CPT-40084 Level 4 New Patient 12:30:48 CDT Baltazar hinton MD [facility] Procedures Code Procedure Name Date Entry Date Standard Desc ription CPT-99851 Venipuncture Draw Fee 14:50:21 [employer] CPT-32289 Immunization Single Admin 17:35:35 CDT 2014 CPT-69162 Fluzone Quadrivalent preservative free ( >=3yrs.) 17:35:35 CDT CPT-56243 Venipuncture Draw Fee 12:10:27 [employer] CPT-49779 Fluzone Quadrivalent Intramuscular Suspe nsion 0.5 ML 10:49:13 CDT CPT-26665 First Vx Component - Ix admi n via ID IM or jet inj without physician counseling 15:17:19 [employer] CPT-72849 Pneumovax 23 15:17:19 [employer] CPT-51197 Pneumovax 14:52:45 [employer] CPT-25135 Venipuncture Draw Fee 14:06:30 [employer] CPT-000 Give Appropriate Flu Vaccine 14:18:34 [employer]GER 2 CPT-40269 Administration single or combination vac cine inc oral 14:46:00 [employer] CPT-03536 Influenza split virus > age 3 14:46:00 [employer] CPT-OV Office Visit 19:13:16 CDT CPT-58493 Zostavax 18:41:56 CDT CPT-99409 Administration single or combination vac cine inc oral 12:56:39 CDT CPT-59396 Zoster Vaccine (Zostavax) 12:56:39 CDT 2012 CPT-46011 Venipuncture Draw Fee 10:58:57 CDT CPT-35344 Sono pelvis non OB uterus ovaries cervix 17:45:04 CDT CPT-42569 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
--- OUTSIDE RECORDS SUMMARY | 2019-10-27 13:35 | XMS REPORT | Clinical Summary ---
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 Personal history of colonic polyps PARESTHESIA, HANDS 782.0 Active Baltazar Childers MD Disturbance of skin sensation FH DIABETES V18.0 Active Baltazar Childers MD Family history of diabetes mellitus ANEMIA 285.9 Active Baltazar Childers MD Anemia, unspecified RENAL INSUFFICIENCY 593.9 Active Baltazar bynum MD Unspecified disorder of kidney and ureter CAD 414.00 Active Gladys Arce [facility] Co ronary atherosclerosis of unspecified type of vessel, [place] or graft OTH NONSPC ABN FINDNG [...] three times a day 201 12/03/26 GABAPENTIN 82811609640 No Longer Active Baltazar Childers MD Activ e LISINOPRIL 20 MG ORAL TABLET 1 tablet by mouth daily at night 2016 LISINOPRIL 56714220502 Active Baltazar Childers MD Active ZITHROMAX Z-ISAIAS 250 MG ORAL TABLET Take two tablets to day and then 1 tablet daily for 4 days AZITHROMYCIN 58607444533 No Longer A ctive Baltazar Childers MD Active LANTUS SOLOSTAR 100 UNIT/ML SUBCUTANEOUS SOLUTION PEN- INJECTOR 30 units SC daily INSULIN GLARGINE 17335408342 Active Baltazar Childers MD Active AMLODIPINE BESYLATE 5 MG ORAL TABLET 1 tab daily for HTN AMLODIPINE BESYLATE 21688010337 Active Baltazar Childers MD Active SYNTHROID 100 MCG ORAL TABLET 1 tablet by mouth daily LEVOTHYROXINE SODIUM 87702733865 Active Baltazar Childers MD Active GLIPIZIDE 10 MG ORAL TABLET take 2 tablets twice daily GLIPIZIDE 50719657191 Active Baltazar Childers MD Active SUCRALFATE 1 GM ORAL TABLET 1 four times a day to coat the stoma ch SUCRALFATE 11630523609 No Longer Active Baltazar Childers MD Active PEN NEEDLES 31G X 6 MM use 1 daily INSULIN PEN NE EDLE 96413067603 Active KENDALL Juarez Active APARNAURINKUO SOLOSTAR 300 UNIT/ML SUBCUTANEOUS SOLUTION PEN- INJECTOR 10 units SC daily INSULIN GLARGINE 72689935253 No Longer Active Rola ARGUETA Active NAPROXEN SODIUM 220 MG ORAL TABLET 1 three times a day as needed NAPROXEN SODIUM 54284335432 No Longer Active Baltazar Childers MD Active ATORVASTATIN CALCIUM 20 MG ORAL TABLET Take 1 tab daily ATORVASTATIN CALCIUM 75433513281 Active Baltazar Childers MD A ctive FUROSEMIDE 40 MG ORAL TABLET Take one by mouth daily FUROSEMIDE 20394675735 Active Baltazar Childers MD Active LISINOPRIL 20 MG ORAL TABLET Take one by mouth daily at bedtime LISINOPRIL 44363873294 No Longer Active Baltazar Childers MD Active ONETOUCH ULTRA BLUE IN VITRO STRIP Test twice a day 07/11/11 GLUCOSE BLOOD 14456740470 No Longer Active Baltazar Childers MD Acti ve TRUEPLUS LANCETS 33G Test twice a day LANCETS 6867853 7563 Active KENDALL Juarez Active TRUEDRAW LANCING DEVICE Test twice a day LANCET DEVICES 15979763288 Active Baltazar Childers MD Active TRUETRACK TEST IN VITRO STRIP Test twice a day GLUCOSE BLOOD 84491554317 Active KENDALL Juarez Active TRUETRACK BLOOD GLUCOSE w/Device KIT Test twice a day BLOOD GLUCOSE MONITORING SUPPL 99177386921 Active Baltazar Childers MD Activ e HYDROCODONE-ACETAMINOPHEN 7.5-325 MG ORAL TABLET Take 1 tab every 6-8 hours PRN HYDROCODONE-ACETAMINOPHEN 27102363609 Active Baltazar Nickerson MD Active NORTRIPTYLINE HCL 50 MG ORAL CAPSULE 1 every night for neuropathy 2 NORTRIPTYLINE HCL 63934993600 Active Baltazar Childers MD Acti ve GABAPENTIN 300 MG ORAL CAPSULE 1 po qd x 2 days, then 1 po BID x 2 days, then 1 po TID GABAPENTIN 53597098711 No Longer Active Baltazar Childers MD Active TRAMADOL HCL 50 MG ORAL TABLET 1 twice a day as needed for pain 201 07/27/28 TRAMADOL HCL 47104130845 Active Baltazar Childers MD Active NAPROXEN 500 MG ORAL TABLET 1 tablet by mouth twice daily NAPROXEN 97415449996 No Longer Active Baltazar Childers MD Active PROAIR HFA 108 (90 Base) MCG/ACT INHALATION AEROSOL SO LUTION 2 puffs four times a day as needed ALBUTEROL SULFATE 54077996567 Active KENDALL Bowie Active DEPO-TESTOSTERONE 200 MG/ML INTRAMUSCULAR SOLUTION as directed TESTOSTERONE CYPIONATE 25165390101 No Longer Active Baltazar Childers MD Active LIPITOR 20 MG ORAL TABLET Take one by mouth daily in evening ATORVASTATIN CALCIUM 44494340747 No Longer Active Baltazar Childers MD Active CRESTOR 10 MG ORAL TABLET 1 by mouth every day ROSUVASTATIN CALCIUM 73903308320 No Longer Active Baltazar Childers MD Active PHENTERMINE HCL 37.5 MG ORAL TABLET Take one by mouth daily PHENTERMINE HCL 66025929107 No Longer Active Baltazar Childers MD Ac tive ROBAXIN-750 750 MG ORAL TABLET Take one by mouth daily METHOCARBAMOL 87989270324 Active KENDALL Juarez Active TIZANIDINE HCL 4 MG ORAL TABLET 1 daily as needed for muscle spa sm TIZANIDINE HCL 59143987361 No Longer Active Dawna Salazar RN Active [id number] 50-325-40 MG ORAL TABLET 1 fo ur times a day as needed for heacache ANZGUFDSOM-VUFC-[id number] 90024437779 Active Baltazar Childers MD Active SUMATRIPTAN SUCCINATE 100 MG ORAL TABLET 1 tablet by m outh at onset of migraine as needed SUMATRIPTAN SUCCINATE 25450739300 Active KENDALL Restrepo Active LORATADINE 10 MG ORAL TABLET Take one by mouth daily LORATADINE 78783169454 Active Baltazar Childers MD Active OMEPRAZOLE 20 MG ORAL CAPSULE DELAYED RELEASE Take one by mouth jostin ly OMEPRAZOLE 74461370255 Active Baltazar Childers MD Active HYDROXYZINE HCL 25 MG ORAL TABLET Take one by mouth daily HYDROXYZINE HCL 80053606503 Active Baltazar Childers MD Active ALPRAZOLAM 1 MG ORAL TABLET 1 tablet [facility] ALPRAZOLAM 65771697579 Active Baltazar Childers MD Active METFORMIN HCL 1000 MG ORAL TABLET Take one by mouth twice daily METFORMIN HCL 23754981496 Active Baltazar Childers MD Active TIZANIDINE HCL 4 MG ORAL TABLET 1 daily as needed for muscle spa sm TIZANIDINE HCL 4 MG ORAL TABLET 868470 TIZANIDINE HCL Inactive PHENTERMINE HCL 37.5 MG ORAL TABLET Take one by mouth daily PHENTERMINE HCL 37.5 MG ORAL TABLET 225399 PHENTERMINE HCL Inac tive CRESTOR 10 MG ORAL TABLET 1 by mouth every day CRESTOR 10 MG ORAL TABLET 140415 ROSUVASTATIN CALCIUM Inactive LIPITOR 20 MG ORAL TABLET Take one by mouth daily in evening LIPITOR 20 MG ORAL TABLET 981180 ATORVASTATIN CALCIUM Inactive DEPO-TESTOSTERONE 200 MG/ML INTRAMUSCULAR SOLUTION as directed DEPO-TESTOSTERONE 200 MG/ML INTRAMUSCULAR SOLUTION 112053 RUFINO TOSTERONE CYPIONATE Inactive NAPROXEN 500 MG ORAL TABLET 1 tablet by mouth twice daily NAPROXEN 500 MG ORAL TABLET 173093 NAPROXEN Inactive GABAPENTIN 300 MG ORAL CAPSULE 1 po qd x 2 days, then 1 po BID x 2 days, then 1 po TID GABAPENTIN 300 MG ORAL CAPSULE 152507 GABAP ENTIN Inactive ONETOUCH ULTRA BLUE IN VITRO STRIP Test twice a day 07/11/11 ONETOUCH ULTRA BLUE IN VITRO STRIP GLUCOSE BLOOD Inact amie NAPROXEN SODIUM 220 MG ORAL TABLET 1 three times a day as needed NAPROXEN SODIUM 220 MG ORAL TABLET 688110 NAPROXEN SODI UM Inactive TOUJEO SOLOSTAR 300 UNIT/ML SUBCUTANEOUS SOLUTION PEN- INJECTOR 10 units SC daily TOUJEO SOLOSTAR 300 UNIT/ML SUBCUTANEOUS SOLUTION PEN-INJECTOR INSULIN GLARGINE Inactive SUCRALFATE 1 GM ORAL TABLET 1 four times a day to coat the stoma ch SUCRALFATE 1 GM ORAL TABLET 025732 SUCRALFATE Inac tive GABAPENTIN 300 MG ORAL CAPSULE 1 three times a day 201 12/03/26 GABAPENTIN 300 MG ORAL CAPSULE 157467 GABAPENTIN Inactive ZITHROMAX Z-ISAIAS 250 MG ORAL TABLET Take two tablets to day and then 1 tablet daily for 4 days ZITHROMAX Z-ISAIAS 250 MG ORAL TAB LET 762783 AZITHROMYCIN Inactive Immunizations Vaccine Administration Date Value Standard Floyd cription pneumococcal immunization administered Pneumovax 23 [CVX33] pneumococcal polysaccharide vaccine, 23 valent Seasonal influenza vaccine, injectable, containing preservative, for > 3 years old (Afluria, FluLaval, Fluzone, Fluvirin, Fluarix, Agriflu(>= 18 yo)) Fluzone (>3 yrs.) [ZNS304] Influenza, seasonal, inject able Seasonal influenza vaccine, injectable, containing preservative, for > 3 years old (Afluria, FluLaval, Fluzone, Fluvirin, Fluarix, Agriflu(>= 18 yo)) Fluzone (>3 yrs.) [GLK239] Influenza, seasonal, inject able Vital Signs Date [...] - Chem istry sodium, serum 139 mmol/L 512-619 4320/10/03 potassium, serum 4.7 mmol/L 3.5-5.2 chloride, serum 98 mmol/L 98-107 carbon dioxide, venous blood 28.7 mmol/L 21.0-32 .0 blood glucose 218 mg/dL 65-110 calcium, serum 9.8 mg/dL 8.5-10.1 urea nitrogen, blood 19 mg/dL 7-18 creatinine, serum 1.68 mg/dL 0.60-1.30 Lab Report: Basic Metabolic Panel, HGBA1 C - Chemistry sodium, serum 143 mmol/L 503-502 8431/06/19 potassium, serum 5.9 mmol/L 3.5-5.2 chloride, serum 105 mmol/L 98-107 carbon dioxide, venous blood 30.2 mmol/L 21.0-32 .0 blood glucose 189 mg/dL 65-110 calcium, serum 9.7 mg/dL 8.5-10.1 urea nitrogen, blood 37 mg/dL 7-18 creatinine, serum 2.11 mg/dL 0.55-1.30 hemoglobin A1C, blood, as % of total hemoglobin 8.2 % 4.3-6.0 Lab Report: CBC, Renal Panel - Chemistry sodium, serum 142 mmol/L 615-772 3631/08/11 potassium, serum 4.8 mmol/L 3.5-5.2 chloride, serum [...] (L) - Chemistry cholesterol, serum 209 mg/dL 144-843 0483/12/27 triglyceride, serum, fasting 329 mg/dL 30-200 HDL cholesterol, serum 56 mg/dL 32-60 LDL cholesterol, serum 87 mg/dL 0-130 TSH 3.60 m[iU]/mL 0.36-3.74 Encounters Code Encounter Date Provider Facility CPT-79463 Level 4 Est. Patient 17:05:37 CDT Baltazar Childers MD [facility] CPT-83477 Level 4 Est. 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 Patient 12:25:11 CDT Baltazar Childers MD [facility]-37343 Level 4 Est. Patient 14:22:31 CDT Baltazar Childers MD [facility]-54913 Level 4 Est. Patient 15:44:38 CDT Shonnajean Parker APRN [facility]-27953 Level 4 Est. Patient 11:34:17 CDT Baltazar Childers MD [facility]-97579 Level 3 Est. Patient 16:40:40 CDT Baltazar Childers MD [facility]-25474 Level 4 Est. Patient 10:41:24 CDT Baltazar Childers MD [facility]-70598 Level 4 Est. Patient 16:01:48 CDT Baltazar Childers MD [facility]-15351 Level 4 Est. Patient 16:54:07 ANIMAL IMPERSONATOR Baltazar Childers MD [facility]99127 Level 4 Est. Patient 15:42:12 CDT Baltazar Childers MD [facility] CPT-36023 Level 4 Est. Patient 11:29:55 CDT Baltazar Childers MD [facility]-34203 Level 4 Est. Patient 14:15:19 CDT Baltazar Childers MD [facility]-70495 Level 4 Est. Patient 12:20:13 CDT Baltazar Childers MD [facility]-27275 Level 4 Est. Patient 14:52:45 ANIMAL IMPERSONATOR Baltazar Childers MD [facility]-45454 Level 4 Est. Patient 14:18:34 ANIMAL IMPERSONATOR Baltazar Childers MD [facility]-89364 Level 4 Est. Patient 15:18:29 CDT Baltazar Childers MD [facility]-29357 Level 3 Est. Patient 12:45:34 CDT Baltazar Childers MD [facility] CPT-97260 Level 3 Est. Patient 10:10:11 CDT Baltazar Childers MD [facility] CPT-21941 Level 3 Est. Patient 14:07:50 CDT Baltazar Childers MD [facility] CPT-20399 Level 4 Est. Patient 12:26:10 ANIMAL IMPERSONATOR Baltazar Chidlers MD [facility] CPT-89108 Level 4 Est. Patient 14:45:38 CDT Baltazar Childers MD [facility] CPT-05905 Level 4 New Patient 12:30:48 CDT Baltazar hinton MD [facility] Procedures Code Procedure Name Date Entry Date Standard Desc ription CPT-000 Give Appropriate Flu Vaccine 12:25:14 CDT 2 CPT-73554 First Vx - Ix admin via ID I M or jet injects without counseling by physician 13:08:59 CDT CPT-39509 Fluzone Quadrivalent Intramuscular Suspe nsion 0.5 ML 13:08:59 CDT CPT-02853 Venipuncture Draw Fee 12:04:12 CDT CPT-85713 Lipid - LAB USE ONLY 17:39:15 ANIMAL IMPERSONATOR 9 CPT-36485 HGBA1C - LAB USE ONLY 17:39:15 ANIMAL IMPERSONATOR CPT-82594 CMP - LAB USE ONLY 17:39:14 ANIMAL IMPERSONATOR CPT-67354 Venipuncture Draw Fee 17:39:14 ANIMAL IMPERSONATOR CPT-45090 First Vx - Ix admin via ID I M or jet injects without counseling by physician 16:55:17 ANIMAL IMPERSONATOR CPT-56173 Fluzone Quadrivalent Intramuscular Suspe nsion 0.5 ML 16:55:17 ANIMAL IMPERSONATOR CPT-93172 Renal Panel - LAB USE ONLY 17:39:20 CDT 201 10/31/07 CPT-42059 CBC - LAB USE ONLY 17:39:20 CDT CPT-23334 Venipuncture Draw Fee 17:39:20 CDT CPT-57982 Venipuncture Draw Fee 14:33:30 CDT CPT-47988 Renal Panel - LAB USE ONLY 14:33:30 CDT 201 10/31/07 CPT-38786 CBC - LAB USE ONLY 14:33:29 CDT CPT-42392 Venipuncture Draw Fee 14:50:21 ANIMAL IMPERSONATOR CPT-76539 Immunization Single Admin 17:35:35 CDT 2014 CPT-07666 Fluzone Quadrivalent preservative free ( >=3yrs.) 17:35:35 CDT CPT-83042 Venipuncture Draw Fee 12:10:27 ANIMAL IMPERSONATOR CPT-93559 Fluzone Quadrivalent Intramuscular Suspe nsion 0.5 ML 10:49:13 CDT CPT-47062 First Vx Component - Ix admi n via ID IM or jet inj without physician counseling 15:17:19 ANIMAL IMPERSONATOR CPT-14036 Pneumovax 23 15:17:19 ANIMAL IMPERSONATOR CPT-87948 Pneumovax 14:52:45 ANIMAL IMPERSONATOR CPT-05819 Venipuncture Draw Fee 14:06:30 ANIMAL IMPERSONATOR CPT-000 Give Appropriate Flu Vaccine 14:18:34 ANIMAL IMPERSONATOR 2 CPT-03934 Administration single or combination vac cine inc oral 14:46:00 ANIMAL IMPERSONATOR CPT-36502 Influenza split virus > age 3 14:46:00 ANIMAL IMPERSONATOR CPT-OV Office Visit 19:13:16 CDT CPT-80697 Zostavax 18:41:56 CDT CPT-64490 Administration single or combination vac cine inc oral 12:56:39 CDT CPT-99177 Zoster Vaccine (Zostavax) 12:56:39 CDT 2012 CPT-40924 Venipuncture Draw Fee 10:58:57 CDT CPT-49869 Sono pelvis non OB uterus ovaries cervix 17:45:04 CDT CPT-66029 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
--- OUTSIDE RECORDS SUMMARY | 2019-10-27 13:35 | XMS REPORT | Clinical Summary ---
Author Author Abhishek, Elba Lance [facility] Address Unknown Phone Unavailable Allergies, Adverse [...] libido COLON POLYPS 211.3 [address] Lolis [address] Benign neoplasm of colon PERIPHERAL NEUROPATHY 356.9 [...] ronary atherosclerosis of unspecified type of vessel, [place] or graft OTH NONSPC ABN FINDNG RAD&OTH [...] Test twice a day GLUCO SE BLOOD 98396138005 No Longer Active Baltazar Childers MD Active TRUEPLUS LANCETS 33G MISC Test twice a day LANCET S 23298531680 Active Baltazar Childers MD Active TRUEDRAW LANCING DEVICE MISC Test twice a day L ANCET DEVICES 31174891435 Active Baltazar Childers MD Active TRUETRACK TEST STRP Test twice a day GLUCOSE BLOO D 77458632630 Active Baltazar Childers MD Active TRUETRACK BLOOD GLUCOSE W/DEVICE KIT Test twice a day BLOOD GLUCOSE MONITORING SUPPL 93936453434 Active Baltazar Childers MD Activ e HYDROCODONE-ACETAMINOPHEN 7.5-325 MG TABS Take 1 tab every 6-8 hour s PRN HYDROCODONE-ACETAMINOPHEN 08009001363 Active Baltazar Childers MD Active NORTRIPTYLINE HCL 50 MG CAPS 1 every night for neuropathy 4 NORTRIPTYLINE HCL 22687013985 Active Baltazar Childers MD Acti ve GABAPENTIN 300 MG CAPS 1 three times a day GABAPE NTIN 22055533491 Active Baltazar Childers MD Active GABAPENTIN 300 MG CAPS 1 po qd x 2 days, then 1 po BID x 2 d ays, then 1 po TID GABAPENTIN 17018804421 No Longer Active Baltazar silverman MD Active TRAMADOL HCL 50 MG TABS 1 twice a day as needed for pain TRAMADOL HCL 34462929208 Active Baltazar Childers MD Active NAPROXEN 500 MG TABS 1 tablet by mouth twice daily NAPROXEN 58346439225 No Longer Active Baltazar Childers MD Active PROAIR HFA 108 (90 BASE) MCG/ACT AERS 2 puffs four times a d ay as needed ALBUTEROL SULFATE 97367436215 Active Baltazar Childers MD Active DEPO-TESTOSTERONE 200 MG/ML OIL as directed RUFINO TOSTERONE CYPIONATE 66856966238 No Longer Active Baltazar Childers MD Active LIPITOR 20 MG TABS Take one by mouth daily in evening ATORVASTATIN CALCIUM 30841557987 No Longer Active Baltazar Childers MD Activ e CRESTOR 10 MG TABS 1 by mouth every day R OSUVASTATIN CALCIUM 62619427981 No Longer Active Baltazar Childers MD Activ e PHENTERMINE HCL 37.5 MG TABS Take one by mouth daily 2 PHENTERMINE HCL 71419647982 No Longer Active Baltazar Childers MD Activ e ROBAXIN-750 750 MG TABS Take one by mouth daily ME THOCARBAMOL 36980966356 Active Baltazar Childers MD Active TIZANIDINE HCL 4 MG TABS 1 daily as needed for muscle spasm 2011 TIZANIDINE HCL 75210274540 No Longer Active Dawna Salazar RN Active DMVXUKOMBZ-CAUR-BVGYTFUA 50-325-40 MG TABS 1 four time s a day as needed for heacache OHYPIPDVZY-VMSJ-YRZTRGIA 80940075851 Active Baltazar Childers MD Active SUMATRIPTAN SUCCINATE 100 MG TABS 1 tablet by mouth at onset of migraine as needed SUMATRIPTAN SUCCINATE 71645324604 Active Baltazar bynum MD Active LORATADINE 10 MG TABS Take one by mouth daily LORATADINE 68650578410 Active Baltazar Childers MD Active FUROSEMIDE 40 MG TABS Take one by mouth daily FUROSEMIDE 60784290084 Active Baltazar Childers MD Active LISINOPRIL 20 MG TABS Take one by mouth daily at bedtime LISINOPRIL 91712536920 Active Baltazar Childers MD Active OMEPRAZOLE 20 MG CPDR Take one by mouth daily OMEPRAZOLE 20966243943 Active Baltazar Childers MD Active HYDROXYZINE HCL 25 MG TABS Take one by mouth daily HYDROXYZINE HCL 16987070710 Active Baltazar Childers MD Active GLIPIZIDE 10 MG TABS 1 tablet by mouth twice daily GLIPIZIDE 25735804040 Active Baltazra Childers MD Active ALPRAZOLAM 1 MG TABS 1 tablet by mouth daily at bedtime for restles s leg ALPRAZOLAM 32061413879 Active Baltazar Childers MD Active METFORMIN HCL 1000 MG TABS Take one by mouth twice daily METFORMIN HCL 27142231748 Active Baltazar Childers MD Active TIZANIDINE HCL 4 MG TABS 1 daily as needed for muscle spasm 2011 TIZANIDINE HCL 4 MG TABS 995750 TIZANIDINE HCL Inactiv e PHENTERMINE HCL 37.5 MG TABS Take one by mouth daily 2 PHENTERMINE HCL 37.5 MG TABS 481650 PHENTERMINE HCL Inactive CRESTOR 10 MG TABS 1 by mouth every day C RESTOR 10 MG TABS ROSUVASTATIN CALCIUM Inactive LIPITOR 20 MG TABS Take one by mouth daily in evening LIPITOR 20 MG TABS 889352 ATORVASTATIN CALCIUM Inactive DEPO-TESTOSTERONE 200 MG/ML OIL as directed 8 DEPO-TESTOSTERONE 200 MG/ML OIL 913097 TESTOSTERONE CYPIONATE Inactive NAPROXEN 500 MG TABS 1 tablet by mouth twice daily 201 07/27/22 NAPROXEN 500 MG TABS 726869 NAPROXEN Inactive GABAPENTIN 300 MG CAPS 1 po qd x 2 days, then 1 po BID x 2 d ays, then 1 po TID GABAPENTIN 300 MG CAPS 497954 GABAPENTIN Inact amie ONETOUCH ULTRA BLUE STRP Test twice a day ONETOUCH ULTRA BLUE STRP GLUCOSE BLOOD Inactive Immunizations Vaccine Administration Date Value Standard Floyd cription pneumococcal immunization administered Pneumovax 23 [CVX33] pneumococcal polysaccharide vaccine, 23 valent Seasonal influenza vaccine, injectable, containing preservative, for > 3 years old (Afluria, FluLaval, Fluzone, Fluvirin, Fluarix, Agriflu(>= 18 yo)) Fluzone (>3 yrs.) [CHR159] Influenza, seasonal, inject able Seasonal influenza vaccine, injectable, containing preservative, for > 3 years old (Afluria, FluLaval, Fluzone, Fluvirin, Fluarix, Agriflu(>= 18 yo)) Fluzone (>3 yrs.) [WRN337] Influenza, seasonal, inject able Vital Signs Date [...] - Chem istry sodium, serum 140 mmol/L 496-162 2303/05/05 potassium, serum 4.9 mmol/L 3.5-5.2 chloride, serum [...] Panel - Chemistry sodium, serum 139 mmol/L 666-683 1566/01/20 potassium, serum 5.3 mmol/L 3.5-5.2 chloride, serum [...] mg/g mg/g{creat} 0-29 cholesterol, serum 319 mg/dL 468-610 2770/08/21 triglyceride, serum, fasting 546 mg/dL 30-200 HDL cholesterol, serum 39 mg/dL 32-96 LDL cholesterol, serum 167.00 mg/dL 5.00-130.00 hemoglobin A1C, blood, as % of total hemoglobin 7.7 % 4.3-6.0 sodium, serum 138 mmol/L 615-469 3411/08/21 potassium, serum 4.3 mmol/L 3.5-5.2 chloride, serum [...] 0-19 Encounters Code Encounter Date Provider Facility CPT-37088 Level 4 Est. Patient 11:29:55 CDT Baltazar Childers MD [facility] CPT-93734 Level 4 Est. Patient 14:15:19 CDT Baltazar Childers MD [facility] CPT-50483 Level 4 Est. Patient 12:20:13 CDT Baltazar Childers MD [facility] CPT-63482 Level 4 Est. Patient 14:52:45 CUSTOMER EXPERIENCE LEADER Baltazar Childers MD [facility] CPT-28803 Level 4 Est. Patient 14:18:34 CUSTOMER EXPERIENCE LEADER Baltazar Childers MD [facility] CPT-41972 Level 4 Est. Patient 15:18:29 CDT Baltazar Childers MD [facility] CPT-12138 Level 3 Est. Patient 12:45:34 CDT Baltazar Childers MD [facility] CPT-46591 Level 3 Est. Patient 10:10:11 CDT Baltazar Childers MD [facility] CPT-42021 Level 3 Est. Patient 14:07:50 CDT Baltazar Childers MD [facility] CPT-97263 Level 4 Est. Patient 12:26:10 CUSTOMER EXPERIENCE LEADER Baltazar Childers MD [facility] CPT-52160 Level 4 Est. Patient 14:45:38 CDT Baltazar Childers MD [facility] CPT-09807 Level 4 New Patient 12:30:48 CDT Baltazar hinton MD [facility] Procedures Code Procedure Name Date Entry Date Standard Desc ription CPT-08854 Venipuncture Draw Fee 12:10:27 CUSTOMER EXPERIENCE LEADER CPT-04412 Fluzone Quadrivalent Intramuscular Suspe nsion 0.5 ML 10:49:13 CDT CPT-20371 First Vx Component - Ix admi n via ID IM or jet inj without physician counseling 15:17:19 CUSTOMER EXPERIENCE LEADER CPT-93965 Pneumovax 15:17:19 CUSTOMER EXPERIENCE LEADER CPT-58169 Pneumovax 14:52:45 CUSTOMER EXPERIENCE LEADER CPT-01105 Venipuncture Draw Fee 14:06:30 CUSTOMER EXPERIENCE LEADER CPT-000 Give Appropriate Flu Vaccine 14:18:34 CUSTOMER EXPERIENCE LEADER 2 CPT-24464 Administration single or combination vac cine inc oral 14:46:00 CUSTOMER EXPERIENCE LEADER CPT-91635 Influenza split virus > age 3 14:46:00 CUSTOMER EXPERIENCE LEADER CPT-OV Office Visit 19:13:16 CDT CPT-40309 Zostavax 18:41:56 CDT CPT-24302 Administration single or combination vac cine inc oral 12:56:39 CDT CPT-69194 Zoster Vaccine (Zostavax) 12:56:39 CDT 2012 CPT-62744 Venipuncture Draw Fee 10:58:57 CDT CPT-04463 Sono pelvis non OB uterus ovaries cervix 17:45:04 CDT CPT-83209 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
--- OUTSIDE RECORDS SUMMARY | 2019-10-27 13:36 | XMS REPORT | Clinical Summary ---
Author Author Admin, Elba Lance Michelle [facility] Address Unknown Phone Unavailable Allergies, Adverse Reactions, Alerts Allergy Name Reaction Description Start Date Severity Status Pr ovider ASPIRIN Critical Active Baltazar bynum MD PENICILLIN yeast infection Critical Active Baltazar hCilders MD FISH Critical Active Baltazar bynum MD [...] libido COLON POLYPS 211.3 Resolved Lolis Thomas [employer] WORK[employer] Benign neoplasm of colon PERIPHERAL NEUROPATHY [...] of unspecified type of vessel, [place] or graft OTH NONSPC ABN FINDNG RAD&OTH [...] a day as needed 2 NAPROXEN SODIUM 87822474537 No Longer Active Baltazar Childers MD Active ATORVASTATIN CALCIUM 20 MG ORAL TABS Take 1 tab daily ATORVASTATIN CALCIUM 39222487938 Active KENDALL Juarez Active FUROSEMIDE 40 MG TABS Take one by mouth daily FUROSEMIDE 29837950129 Active Baltazar Childers MD Active LISINOPRIL 20 MG TABS Take one by mouth daily at bedtime LISINOPRIL 67162301894 Active KENDALL Juarez Active ONETOUCH ULTRA BLUE STRP Test twice a day GLUCO SE BLOOD 12324110966 No Longer Active Baltazar Childers MD Active TRUEPLUS LANCETS 33G MISC Test twice a day LANCET S 23026622400 Active KENDALL Juarez Active TRUEDRAW LANCING DEVICE MISC Test twice a day L ANCET DEVICES 09336214751 Active Baltazar Childers MD Active TRUETRACK TEST STRP Test twice a day GLUCOSE BLOO D 79307309206 Active Baltazar Childers MD Active TRUETRACK BLOOD GLUCOSE W/DEVICE KIT Test twice a day BLOOD GLUCOSE MONITORING SUPPL 05507873222 Active Baltazar Childers MD Activ e HYDROCODONE-ACETAMINOPHEN 7.5-325 MG TABS Take 1 tab every 6-8 hour s PRN HYDROCODONE-ACETAMINOPHEN 00762223551 Active Baltazar Childers MD Active NORTRIPTYLINE HCL 50 MG CAPS 1 every night for neuropathy 4 NORTRIPTYLINE HCL 37229130663 Active Baltazar Childers MD Acti ve GABAPENTIN 300 MG CAPS 1 three times a day GABAPE NTIN 97005192359 Active KENDALL Juarez Active GABAPENTIN 300 MG CAPS 1 po qd x 2 days, then 1 po BID x 2 d ays, then 1 po TID GABAPENTIN 17112360197 No Longer Active Baltazar silverman MD Active TRAMADOL HCL 50 MG TABS 1 twice a day as needed for pain TRAMADOL HCL 97343809528 Active Baltazar Childers MD Active NAPROXEN 500 MG TABS 1 tablet by mouth twice daily NAPROXEN 90571590339 No Longer Active Baltazar Childers MD Active PROAIR HFA 108 (90 BASE) MCG/ACT AERS 2 puffs four times a d ay as needed ALBUTEROL SULFATE 82320561243 Active KENDALL Juarez Active DEPO-TESTOSTERONE 200 MG/ML OIL as directed RUFINO TOSTERONE CYPIONATE 45823666926 No Longer Active Baltazar Childers MD Active LIPITOR 20 MG TABS Take one by mouth daily in evening ATORVASTATIN CALCIUM 55738449173 No Longer Active Baltazar Childers MD Activ e CRESTOR 10 MG TABS 1 by mouth every day R OSUVASTATIN CALCIUM 35618558033 No Longer Active Baltazar Childers MD Activ e PHENTERMINE HCL 37.5 MG TABS Take one by mouth daily 2 PHENTERMINE HCL 39778473926 No Longer Active Baltazar Childers MD Activ e ROBAXIN-750 750 MG TABS Take one by mouth daily ME THOCARBAMOL 57027214387 Active Baltazar Childers MD Active TIZANIDINE HCL 4 MG TABS 1 daily as needed for muscle spasm 2011 TIZANIDINE HCL 09348195048 No Longer Active Dawna Salazar RN Active [id number] 50-325-40 MG TABS 1 four time s a day as needed for heacache [id number] 06832945379 Active KENDALL Juarez Active SUMATRIPTAN SUCCINATE 100 MG TABS 1 tablet by mouth at onset of migraine as needed SUMATRIPTAN SUCCINATE 34854361312 Active KENDALL Juarez Active LORATADINE 10 MG TABS Take one by mouth daily LORATADINE 08379092894 Active Baltazar Childers MD Active OMEPRAZOLE 20 MG CPDR Take one by mouth daily OMEPRAZOLE 72446881198 Active Baltazar Childers MD Active HYDROXYZINE HCL 25 MG TABS Take one by mouth daily HYDROXYZINE HCL 33312214417 Active Baltazar Childers MD Active GLIPIZIDE 10 MG TABS 1 tablet by mouth twice daily GLIPIZIDE 91982511990 Active KENDALL Juarez Active ALPRAZOLAM 1 MG TABS 1 tablet by mouth daily at bedtime for restles s leg ALPRAZOLAM 82435027320 Active Baltazar Childers MD Active METFORMIN HCL 1000 MG TABS Take one by mouth twice daily METFORMIN HCL 94617280296 Active Baltazar Childers MD Active TIZANIDINE HCL 4 MG TABS 1 daily as needed for muscle spasm 2011 TIZANIDINE HCL 4 MG TABS 307004 TIZANIDINE HCL Inactiv e PHENTERMINE HCL 37.5 MG TABS Take one by mouth daily 2 PHENTERMINE HCL 37.5 MG TABS 992737 PHENTERMINE HCL Inactive CRESTOR 10 MG TABS 1 by mouth every day C RESTOR 10 MG TABS ROSUVASTATIN CALCIUM Inactive LIPITOR 20 MG TABS Take one by mouth daily in evening LIPITOR 20 MG TABS 379763 ATORVASTATIN CALCIUM Inactive DEPO-TESTOSTERONE 200 MG/ML OIL as directed 8 DEPO-TESTOSTERONE 200 MG/ML OIL 166833 TESTOSTERONE CYPIONATE Inactive NAPROXEN 500 MG TABS 1 tablet by mouth twice daily 201 07/27/22 NAPROXEN 500 MG TABS 552817 NAPROXEN Inactive GABAPENTIN 300 MG CAPS 1 po qd x 2 days, then 1 po BID x 2 d ays, then 1 po TID GABAPENTIN 300 MG CAPS 748136 GABAPENTIN Inact amie ONETOUCH ULTRA BLUE STRP Test twice a day ONETOUCH ULTRA BLUE STRP GLUCOSE BLOOD Inactive NAPROXEN SODIUM 220 MG ORAL TABS 1 three times a day as needed 2 NAPROXEN SODIUM 220 MG ORAL TABS 485329 NAPROXEN SODIUM Inactive Immunizations Vaccine Administration Date Value Standard Floyd cription pneumococcal immunization administered Pneumovax 23 [CVX33] pneumococcal polysaccharide vaccine, 23 valent Seasonal influenza vaccine, injectable, containing preservative, for > 3 years old (Afluria, FluLaval, Fluzone, Fluvirin, Fluarix, Agriflu(>= 18 yo)) Fluzone (>3 yrs.) [[id number]] Influenza, seasonal, inject able Seasonal influenza vaccine, injectable, containing preservative, for > 3 years old (Afluria, FluLaval, Fluzone, Fluvirin, Fluarix, Agriflu(>= 18 yo)) Fluzone (>3 yrs.) [[id number]] Influenza, seasonal, inject able Vital Signs Date [...] 7.9 % 4.3-6.0 sodium, serum 139 mmol/L 794-283 9585/02/04 potassium, serum 5.4 mmol/L 3.5-5.2 chloride, serum [...] 0.40 mg/dL 0.00-1.00 cholesterol, serum 405 mg/dL 787-695 5960/11/23 triglyceride, serum, fasting 709 mg/dL 30-200 HDL cholesterol, serum 53 mg/dL 32-96 LDL cholesterol, serum 210 mg/dL 0-130 blood glucose 136 mg/dL 65-110 chloride, serum 98 mmol/L 98-107 potassium, serum 5.7 mmol/L 3.5-5.2 carbon dioxide, venous blood 32.4 mmol/L 21.0-32 .0 sodium, serum 138 mmol/L 665-448 6937/11/23 calcium, serum 9.4 mg/dL 8.5-10.1 aspartate aminotransferase [...] mg/dL Encounters Code Encounter Date Provider Facility CPT-65251 Level 4 Est. Patient 16:01:48 CDT Baltazar Childers MD [facility] CPT-11818 Level 4 Est. Patient 16:54:07 CIRCULATION ANALYST Baltazar Childers MD [facility] CPT-31250 Level 4 Est. Patient 15:42:12 CDT Baltazar Childers MD [facility] CPT-28719 Level 4 Est. Patient 11:29:55 CDT Baltazar Childers MD [facility] CPT-57474 Level 4 Est. Patient 14:15:19 CDT Baltazar Childers MD [facility] CPT-39699 Level 4 Est. Patient 12:20:13 CDT Baltazar Childers MD [facility] CPT-30762 Level 4 Est. Patient 14:52:45 CIRCULATION ANALYST Baltazar Childers MD [facility] CPT-52920 Level 4 Est. Patient 14:18:34 CIRCULATION ANALYST Baltazar Childers MD [facility] CPT-65836 Level 4 Est. Patient 15:18:29 CDT Baltazar Childers MD [facility] CPT-54224 Level 3 Est. Patient 12:45:34 CDT Baltazar Childers MD [facility] CPT-74006 Level 3 Est. Patient 10:10:11 CDT Baltazar Childers MD [facility] CPT-28975 Level 3 Est. Patient 14:07:50 CDT Baltazar Childers MD [facility] CPT-72928 Level 4 Est. Patient 12:26:10 CIRCULATION ANALYST Baltazar Childers MD [facility] CPT-47669 Level 4 Est. Patient 14:45:38 CDT Baltazar Childers MD [facility] CPT-83060 Level 4 New Patient 12:30:48 CDT Baltazar hinton MD [facility] Procedures Code Procedure Name Date Entry Date Standard Desc ription CPT-29996 Venipuncture Draw Fee 14:50:21 CIRCULATION ANALYST CPT-47521 Immunization Single Admin 17:35:35 CDT 2014 CPT-80802 Fluzone Quadrivalent preservative free ( >=3yrs.) 17:35:35 CDT CPT-28701 Venipuncture Draw Fee 12:10:27 CIRCULATION ANALYST CPT-77472 Fluzone Quadrivalent Intramuscular Suspe nsion 0.5 ML 10:49:13 CDT CPT-74884 First Vx Component - Ix admi n via ID IM or jet inj without physician counseling 15:17:19 CIRCULATION ANALYST CPT-97939 Pneumovax 15:17:19 CIRCULATION ANALYST CPT-15143 Pneumovax 14:52:45 CIRCULATION ANALYST CPT-39250 Venipuncture Draw Fee 14:06:30 CIRCULATION ANALYST CPT-000 Give Appropriate Flu Vaccine 14:18:34 CIRCULATION ANALYST 2 CPT-59972 Administration single or combination vac cine inc oral 14:46:00 CIRCULATION ANALYST CPT-22518 Influenza split virus > age 3 14:46:00 CIRCULATION ANALYST CPT-OV Office Visit 19:13:16 CDT CPT-84742 Zostavax 18:41:56 CDT CPT-64400 Administration single or combination vac cine inc oral 12:56:39 CDT CPT-65333 Zoster Vaccine (Zostavax) 12:56:39 CDT 2012 CPT-27268 Venipuncture Draw Fee 10:58:57 CDT CPT-82743 Sono pelvis non OB uterus ovaries cervix 17:45:04 CDT CPT-58662 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
--- OUTSIDE RECORDS SUMMARY | 2019-10-27 13:36 | XMS REPORT | Clinical Summary ---
Author Author Admin, Elba Lance Michelle [facility] Address Unknown Phone Unavailable Allergies, Adverse Reactions, Alerts Allergy Name Reaction Description Start Date Severity Status Pr ovider ASPIRIN Critical Active aBltazar bynum MD PENICILLIN yeast infection Critical Active 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 Thomas [employer]INE Benign neoplasm of colon PERIPHERAL NEUROPATHY 356.9 [...] MD Anemia, unspecified RENAL INSUFFICIENCY 593.9 Active aBltazar bynum MD Unspecified disorder of kidney and [...] a day as needed 2 NAPROXEN SODIUM 15312950647 No Longer Active Baltazar Childers MD Active ATORVASTATIN CALCIUM 20 MG ORAL TABS Take 1 tab daily ATORVASTATIN CALCIUM 98694965130 Active KENDALL Juarez Active FUROSEMIDE 40 MG TABS Take one by mouth daily FUROSEMIDE 94870247024 Active Baltazar Childers MD Active LISINOPRIL 20 MG TABS Take one by mouth daily at bedtime LISINOPRIL 46462277240 Active KENDALL Juarez Active ONETOUCH ULTRA BLUE STRP Test twice a day GLUCO SE BLOOD 29093142589 No Longer Active Baltazar Childers MD Active TRUEPLUS LANCETS 33G MISC Test twice a day LANCET S 85106364223 Active KENDALL Juarez Active TRUEDRAW LANCING DEVICE MISC Test twice a day L ANCET DEVICES 72946615449 Active Baltazar Childers MD Active TRUETRACK TEST STRP Test twice a day GLUCOSE BLOO D 06489519221 Active Baltazar Childers MD Active TRUETRACK BLOOD GLUCOSE W/DEVICE KIT Test twice a day BLOOD GLUCOSE MONITORING SUPPL 94804222043 Active Baltazar Childers MD Activ e HYDROCODONE-ACETAMINOPHEN 7.5-325 MG TABS Take 1 tab every 6-8 hour s PRN HYDROCODONE-ACETAMINOPHEN 06250329534 Active Baltazar Childers MD Active NORTRIPTYLINE HCL 50 MG CAPS 1 every night for neuropathy 4 NORTRIPTYLINE HCL 05787523379 Active Baltazar Childers MD Acti ve GABAPENTIN 300 MG CAPS 1 three times a day GABAPE NTIN 98741303044 Active KENDALL Juarez Active GABAPENTIN 300 MG CAPS 1 po qd x 2 days, then 1 po BID x 2 d ays, then 1 po TID GABAPENTIN 69904383055 No Longer Active Baltazar silverman MD Active TRAMADOL HCL 50 MG TABS 1 twice a day as needed for pain TRAMADOL HCL 44831338814 Active Baltazar Childers MD Active NAPROXEN 500 MG TABS 1 tablet by mouth twice daily NAPROXEN 98932129456 No Longer Active Balatzar Childers MD Active PROAIR HFA 108 (90 BASE) MCG/ACT AERS 2 puffs four times a d ay as needed ALBUTEROL SULFATE 37242504862 Active KENDALL Juarez Active DEPO-TESTOSTERONE 200 MG/ML OIL as directed RUFINO TOSTERONE CYPIONATE 35067547147 No Longer Active Baltazar Childers MD Active LIPITOR 20 MG TABS Take one by mouth daily in evening ATORVASTATIN CALCIUM 51461133056 No Longer Active Baltazar Childers MD Activ e CRESTOR 10 MG TABS 1 by mouth every day R OSUVASTATIN CALCIUM 05664995597 No Longer Active Baltazar Childers MD Activ e PHENTERMINE HCL 37.5 MG TABS Take one by mouth daily 2 PHENTERMINE HCL 58053918243 No Longer Active Baltazar Childers MD Activ e ROBAXIN-750 750 MG TABS Take one by mouth daily ME THOCARBAMOL 09285214921 Active Baltazar Childers MD Active TIZANIDINE HCL 4 MG TABS 1 daily as needed for muscle spasm 2011 TIZANIDINE HCL 28887379886 No Longer Active Dawna Salazar RN Active [id number] 50-325-40 MG TABS 1 four time s a day as needed for heacache [id number]-[id number] 70112950906 Active Baltazar Childers MD Active SUMATRIPTAN SUCCINATE 100 MG TABS 1 tablet by mouth at onset of migraine as needed SUMATRIPTAN SUCCINATE 63560478862 Active KENDALL Juarez Active LORATADINE 10 MG TABS Take one by mouth daily LORATADINE 37399462599 Active Baltazar Childers MD Active OMEPRAZOLE 20 MG CPDR Take one by mouth daily OMEPRAZOLE 06381599696 Active Baltazar Childers MD Active HYDROXYZINE HCL 25 MG TABS Take one by mouth daily HYDROXYZINE HCL 20370227425 Active Baltazar Childers MD Active GLIPIZIDE 10 MG TABS 1 tablet by mouth twice daily GLIPIZIDE 59965499512 Active KENDALL Juarez Active ALPRAZOLAM 1 MG TABS 1 tablet by mouth daily at bedtime for restles s leg ALPRAZOLAM 57223956730 Active Baltazar Childers MD Active METFORMIN HCL 1000 MG TABS Take one by mouth twice daily METFORMIN HCL 65763379211 Active Baltazar Childers MD Active TIZANIDINE HCL 4 MG TABS 1 daily as needed for muscle spasm 2011 TIZANIDINE HCL 4 MG TABS 462940 TIZANIDINE HCL Inactiv e PHENTERMINE HCL 37.5 MG TABS Take one by mouth daily 2 PHENTERMINE HCL 37.5 MG TABS 482870 PHENTERMINE HCL Inactive CRESTOR 10 MG TABS 1 by mouth every day C RESTOR 10 MG TABS ROSUVASTATIN CALCIUM Inactive LIPITOR 20 MG TABS Take one by mouth daily in evening LIPITOR 20 MG TABS 153269 ATORVASTATIN CALCIUM Inactive DEPO-TESTOSTERONE 200 MG/ML OIL as directed 8 DEPO-TESTOSTERONE 200 MG/ML OIL 937017 TESTOSTERONE CYPIONATE Inactive NAPROXEN 500 MG TABS 1 tablet by mouth twice daily 201 07/27/22 NAPROXEN 500 MG TABS 128445 NAPROXEN Inactive GABAPENTIN 300 MG CAPS 1 po qd x 2 days, then 1 po BID x 2 d ays, then 1 po TID GABAPENTIN 300 MG CAPS 342486 GABAPENTIN Inact amie ONETOUCH ULTRA BLUE STRP Test twice a day ONETOUCH ULTRA BLUE STRP GLUCOSE BLOOD Inactive NAPROXEN SODIUM 220 MG ORAL TABS 1 three times a day as needed 2 NAPROXEN SODIUM 220 MG ORAL TABS 826968 NAPROXEN SODIUM Inactive Immunizations Vaccine Administration Date Value Standard Floyd cription pneumococcal immunization administered Pneumovax 23 [CVX33] pneumococcal polysaccharide vaccine, 23 valent Seasonal influenza vaccine, injectable, containing preservative, for > 3 years old (Afluria, FluLaval, Fluzone, Fluvirin, Fluarix, Agriflu(>= 18 yo)) Fluzone (>3 yrs.) [NDX667] Influenza, seasonal, inject able Seasonal influenza vaccine, injectable, containing preservative, for > 3 years old (Afluria, FluLaval, Fluzone, Fluvirin, Fluarix, Agriflu(>= 18 yo)) Fluzone (>3 yrs.) [UGV531] Influenza, seasonal, inject able Vital Signs Date [...] 7.9 % 4.3-6.0 sodium, serum 139 mmol/L 379-449 8825/02/04 potassium, serum 5.4 mmol/L 3.5-5.2 chloride, serum [...] Panel - Chemistry sodium, serum 138 mmol/L 364-031 5349/11/23 carbon dioxide, venous blood 32.4 mmol/L 21.0-32 .0 potassium, serum 5.7 mmol/L 3.5-5.2 chloride, serum 98 mmol/L 98-107 blood glucose 136 mg/dL 65-110 urea nitrogen, blood 18 mg/dL 7-18 creatinine, serum 1.71 mg/dL 0.55-1.30 alanine aminotransferase (SGPT), serum 71 U/L 12-78 aspartate aminotransferase (SGOT), serum 34 U/L 15-37 calcium, serum 9.4 mg/dL 8.5-10.1 bilirubin, serum, total 0.40 mg/dL 0.00-1.00 cholesterol, serum 405 mg/dL 414-117 3015/11/23 triglyceride, serum, fasting 709 mg/dL 30-200 HDL [...] mg/dL Encounters Code Encounter Date Provider Facility CPT-17850 Level 4 Est. Patient 16:01:48 CDT Baltazar Childers MD [facility] CPT-89077 Level 4 Est. Patient 16:54:07 [facility] Baltazar Childers MD [facility] CPT-25323 Level 4 Est. Patient 15:42:12 CDT Baltazar Childers MD [facility] CPT-54685 Level 4 Est. Patient 11:29:55 CDT Baltazar Childers MD [facility] CPT-36977 Level 4 Est. Patient 14:15:19 CDT Baltazar Childers MD [facility] CPT-31017 Level 4 Est. Patient 12:20:13 CDT Baltazar Childers MD [facility] CPT-06989 Level 4 Est. Patient 14:52:45 [facility] Baltazar Childers MD [facility] CPT-94180 Level 4 Est. Patient 14:18:34 [facility] Baltazar Childers MD [facility] CPT-55523 Level 4 Est. Patient 15:18:29 CDT Baltazar Childers MD [facility] CPT-68228 Level 3 Est. Patient 12:45:34 CDT Baltazar Childers MD [facility] CPT-45076 Level 3 Est. Patient 10:10:11 CDT Baltazar Childers MD [facility] CPT-92487 Level 3 Est. Patient 14:07:50 CDT Baltazar Childers MD [facility] CPT-79865 Level 4 Est. Patient 12:26:10 [facility] Baltazar Childers MD [facility] CPT-86348 Level 4 Est. Patient 14:45:38 CDT Baltazar Childers MD [facility] CPT-39900 Level 4 New Patient 12:30:48 CDT Baltazar hinton MD [facility] Procedures Code Procedure Name Date Entry Date Standard Desc ription CPT-93080 Venipuncture Draw Fee 14:50:21 [facility] CPT-16379 Immunization Single Admin 17:35:35 CDT 2014 CPT-55901 Fluzone Quadrivalent preservative free ( >=3yrs.) 17:35:35 CDT CPT-31070 Venipuncture Draw Fee 12:10:27 [facility] CPT-77477 Fluzone Quadrivalent Intramuscular Suspe nsion 0.5 ML 10:49:13 CDT CPT-51974 First Vx Component - Ix admi n via ID IM or jet inj without physician counseling 15:17:19 [facility] CPT-35909 Pneumovax 15:17:19 [facility] CPT-82330 Pneumovax 14:52:45 [facility] CPT-32086 Venipuncture Draw Fee 14:06:30 [facility] CPT-000 Give Appropriate Flu Vaccine 14:18:34 [facility] 2 CPT-13565 Administration single or combination vac cine inc oral 14:46:00 [facility] CPT-81861 Influenza split virus > age 3 14:46:00 [facility] CPT-OV Office Visit 19:13:16 CDT CPT-75834 Zostavax 18:41:56 CDT CPT-16087 Administration single or combination vac cine inc oral 12:56:39 CDT CPT-45805 Zoster Vaccine (Zostavax) 12:56:39 CDT 2012 CPT-35192 Venipuncture Draw Fee 10:58:57 CDT CPT-45997 Sono pelvis non OB uterus ovaries cervix 17:45:04 CDT CPT-60724 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
--- OUTSIDE RECORDS SUMMARY | 2019-10-27 13:36 | XMS REPORT | Clinical Summary ---
Author Author Admin, Elba Lance Tarena Address Unknown Phone Unavailable Allergies, Adverse Reactions, [...] libido COLON POLYPS 211.3 Resolved Lolis Thomas [employer] Benign neoplasm of colon PERIPHERAL NEUROPATHY [...] ronary atherosclerosis of unspecified type of vessel, [place] or graft OTH NONSPC ABN FINDNG [...] 1 tablet daily for 4 days AZITHROMYCIN [id number] No Longer A ctive Baltazar Childers MD Active LANTUS SOLOSTAR 100 UNIT/ML SUBCUTANEOUS SOLUTION PEN- INJECTOR 30 units SC daily INSULIN GLARGINE 97193692589 Active Baltazar Childers MD Active AMLODIPINE BESYLATE 5 MG ORAL TABLET 1 tab daily for HTN AMLODIPINE BESYLATE 85167963795 Active Baltazar Childers MD Active SYNTHROID 100 MCG ORAL TABLET 1 tablet by mouth daily LEVOTHYROXINE SODIUM 63265041299 Active Baltazar Childers MD Active GLIPIZIDE 10 MG ORAL TABLET take 2 tablets twice daily GLIPIZIDE 02843659386 Active Baltazar Childers MD Active SUCRALFATE 1 GM ORAL TABLET 1 four times a day to coat the stoma ch SUCRALFATE 23182370450 No Longer Active Baltazar Childers MD Active PEN NEEDLES 31G X 6 MM use 1 daily INSULIN PEN NE EDLE 50145396657 Active KENDALL Juarez Active TOUJEO SOLOSTAR 300 UNIT/ML SUBCUTANEOUS SOLUTION PEN- INJECTOR 10 units SC daily INSULIN GLARGINE 65338802157 No Longer Active Rola ARGUETA Active NAPROXEN SODIUM 220 MG ORAL TABLET 1 three times a day as needed NAPROXEN SODIUM 92970535340 No Longer Active Baltazar Childers MD Active ATORVASTATIN CALCIUM 20 MG ORAL TABLET Take 1 tab daily ATORVASTATIN CALCIUM 53957789490 Active Blatazar Childers MD A ctive FUROSEMIDE 40 MG ORAL TABLET Take one by mouth daily FUROSEMIDE 82839042770 Active Jessy Arellano LPN Active LISINOPRIL 20 MG ORAL TABLET Take one by mouth daily at bedtime LISINOPRIL 46975190219 No Longer Active Baltazar Childers MD Active ONETOUCH ULTRA BLUE IN VITRO STRIP Test twice a day 07/11/11 GLUCOSE BLOOD 60140284241 No Longer Active Baltazar Childers MD Acti ve TRUEPLUS LANCETS 33G Test twice a day LANCETS 6174327 1339 Active KENDALL Juarez Active TRUEDRAW LANCING DEVICE Test twice a day LANCET DEVICES 92945694275 Active Baltazar Childers MD Active TRUETRACK TEST IN VITRO STRIP Test twice a day GLUCOSE BLOOD 96907461609 Active KENDALL Juarez Active TRUETRACK BLOOD GLUCOSE w/Device KIT Test twice a day BLOOD GLUCOSE MONITORING SUPPL 46706923894 Active Baltazar Childers MD Activ e HYDROCODONE-ACETAMINOPHEN 7.5-325 MG ORAL TABLET Take 1 tab every 6-8 hours PRN HYDROCODONE-ACETAMINOPHEN 17548032192 Active Baltazar Nickerson MD Active NORTRIPTYLINE HCL 50 MG ORAL CAPSULE 1 every night for neuropathy 2 NORTRIPTYLINE HCL 61263744676 Active Baltazar Childers MD Acti ve GABAPENTIN 300 MG ORAL CAPSULE 1 three times a day GABAPENTIN 85207410879 Active Baltazar Childers MD Active GABAPENTIN 300 MG ORAL CAPSULE 1 po qd x 2 days, then 1 po BID x 2 days, then 1 po TID GABAPENTIN 61276360911 No Longer Active Baltazar Childers MD Active TRAMADOL HCL 50 MG ORAL TABLET 1 twice a day as needed for pain 201 07/27/28 TRAMADOL HCL 13432499732 Active Baltazar Childers MD Active NAPROXEN 500 MG ORAL TABLET 1 tablet by mouth twice daily NAPROXEN 20292831480 No Longer Active Baltazar Childers MD Active PROAIR HFA 108 (90 Base) MCG/ACT INHALATION AEROSOL SO LUTION 2 puffs four times a day as needed ALBUTEROL SULFATE 07493902195 Active Paul Childers MD Active DEPO-TESTOSTERONE 200 MG/ML INTRAMUSCULAR SOLUTION as directed TESTOSTERONE CYPIONATE 04098513631 No Longer Active Baltazar Childers MD Active LIPITOR 20 MG ORAL TABLET Take one by mouth daily in evening ATORVASTATIN CALCIUM 86527622229 No Longer Active Baltazar Childers MD Active CRESTOR 10 MG ORAL TABLET 1 by mouth every day ROSUVASTATIN CALCIUM 78652368747 No Longer Active Baltazar Childers MD Active PHENTERMINE HCL 37.5 MG ORAL TABLET Take one by mouth daily PHENTERMINE HCL 39329800385 No Longer Active Baltazar Childers MD Ac tive ROBAXIN-750 750 MG ORAL TABLET Take one by mouth daily METHOCARBAMOL 79769873092 Active Baltazar Childers MD Active TIZANIDINE HCL 4 MG ORAL TABLET 1 daily as needed for muscle spa sm TIZANIDINE HCL 34826841316 No Longer Active Dawna Salazar RN Active MVALSRBRJW-MNBK-MESUHYER 50-325-40 MG ORAL TABLET 1 fo ur times a day as needed for heacache GORIRDZFEG-TPCJ-FWSMRCBW 43085680428 Active KENDALL Juarez Active SUMATRIPTAN SUCCINATE 100 MG ORAL TABLET 1 tablet by m outh at onset of migraine as needed SUMATRIPTAN SUCCINATE 31603596483 Active Baltazar Nickerson MD Active LORATADINE 10 MG ORAL TABLET Take one by mouth daily LORATADINE 44448640600 Active Baltazar Childers MD Active OMEPRAZOLE 20 MG ORAL CAPSULE DELAYED RELEASE Take one by mouth jostin ly OMEPRAZOLE 94766170757 Active Baltazar Childers MD Active HYDROXYZINE HCL 25 MG ORAL TABLET Take one by mouth daily HYDROXYZINE HCL 11034410340 Active Baltazar Childers MD Active ALPRAZOLAM 1 MG ORAL TABLET 1 tablet by mouth daily at bedti pr for restless leg ALPRAZOLAM 14688756065 Active Baltazar Childers MD Active METFORMIN HCL 1000 MG ORAL TABLET Take one by mouth twice daily METFORMIN HCL 58037922448 Active Baltazar Childers MD Active TIZANIDINE HCL 4 MG ORAL TABLET 1 daily as needed for muscle spa sm TIZANIDINE HCL 4 MG ORAL TABLET 426776 TIZANIDINE HCL Inactive PHENTERMINE HCL 37.5 MG ORAL TABLET Take one by mouth daily PHENTERMINE HCL 37.5 MG ORAL TABLET 064872 PHENTERMINE HCL Inac tive CRESTOR 10 MG ORAL TABLET 1 by mouth every day CRESTOR 10 MG ORAL TABLET 004184 ROSUVASTATIN CALCIUM Inactive LIPITOR 20 MG ORAL TABLET Take one by mouth daily in evening LIPITOR 20 MG ORAL TABLET 904594 ATORVASTATIN CALCIUM Inactive DEPO-TESTOSTERONE 200 MG/ML INTRAMUSCULAR SOLUTION as directed DEPO-TESTOSTERONE 200 MG/ML INTRAMUSCULAR SOLUTION 599951 RUFINO TOSTERONE CYPIONATE Inactive NAPROXEN 500 MG ORAL TABLET 1 tablet by mouth twice daily NAPROXEN 500 MG ORAL TABLET 377714 NAPROXEN Inactive GABAPENTIN 300 MG ORAL CAPSULE 1 po qd x 2 days, then 1 po BID x 2 days, then 1 po TID GABAPENTIN 300 MG ORAL CAPSULE 443778 GABAP ENTIN Inactive ONETOUCH ULTRA BLUE IN VITRO STRIP Test twice a day 07/11/11 ONETOUCH ULTRA BLUE IN VITRO STRIP GLUCOSE BLOOD Inact amie NAPROXEN SODIUM 220 MG ORAL TABLET 1 three times a day as needed NAPROXEN SODIUM 220 MG ORAL TABLET 898520 NAPROXEN SODI UM Inactive TOUJEO SOLOSTAR 300 UNIT/ML SUBCUTANEOUS SOLUTION PEN- INJECTOR 10 units SC daily TOUJEO SOLOSTAR 300 UNIT/ML SUBCUTANEOUS SOLUTION PEN-INJECTOR INSULIN GLARGINE Inactive SUCRALFATE 1 GM ORAL TABLET 1 four times a day to coat the stoma ch SUCRALFATE 1 GM ORAL TABLET 354804 SUCRALFATE Inac tive ZITHROMAX Z-ISAIAS 250 MG ORAL TABLET Take two tablets to day and then 1 tablet daily for 4 days ZITHROMAX Z-ISAIAS 250 MG ORAL TAB LET 874265 AZITHROMYCIN Inactive Immunizations Vaccine Administration Date Value Standard Floyd cription pneumococcal immunization administered Pneumovax 23 [CVX33] pneumococcal polysaccharide vaccine, 23 valent Seasonal influenza vaccine, injectable, containing preservative, for > 3 years old (Afluria, FluLaval, Fluzone, Fluvirin, Fluarix, Agriflu(>= 18 yo)) Fluzone (>3 yrs.) [[id number]] Influenza, seasonal, inject able Seasonal influenza vaccine, injectable, containing preservative, for > 3 years old (Afluria, FluLaval, Fluzone, Fluvirin, Fluarix, Agriflu(>= 18 yo)) Fluzone (>3 yrs.) [DZY537] Influenza, seasonal, inject able Vital Signs Date [...] - Chem istry sodium, serum 139 mmol/L 213-428 6027/10/03 potassium, serum 4.7 mmol/L 3.5-5.2 chloride, serum 98 mmol/L 98-107 carbon dioxide, venous blood 28.7 mmol/L 21.0-32 .0 blood glucose 218 mg/dL 65-110 calcium, serum 9.8 mg/dL 8.5-10.1 urea nitrogen, blood 19 mg/dL 7-18 creatinine, serum 1.68 mg/dL 0.60-1.30 Lab Report: Basic Metabolic Panel, HGBA1 C - Chemistry sodium, serum 143 mmol/L 884-453 5544/06/19 potassium, serum 5.9 mmol/L 3.5-5.2 chloride, serum 105 mmol/L 98-107 carbon dioxide, venous blood 30.2 mmol/L 21.0-32 .0 blood glucose 189 mg/dL 65-110 calcium, serum 9.7 mg/dL 8.5-10.1 urea nitrogen, blood 37 mg/dL 7-18 creatinine, serum 2.11 mg/dL 0.55-1.30 hemoglobin A1C, blood, as % of total hemoglobin 8.2 % 4.3-6.0 Lab Report: CBC, Renal Panel - Chemistry sodium, serum 142 mmol/L 005-777 7839/08/11 potassium, serum 4.8 mmol/L 3.5-5.2 chloride, serum [...] Panel - Chemistry carbon dioxide, venous blood 32.5 mmol/L 21.0-32 .0 blood glucose 129 mg/dL 65-110 urea nitrogen, blood 18 mg/dL 7-18 creatinine, serum 1.79 mg/dL 0.55-1.30 alanine aminotransferase (SGPT), serum 34 U/L 12-78 aspartate aminotransferase (SGOT), serum 26 U/L 15-37 calcium, serum 8.9 mg/dL 8.5-10.1 bilirubin, serum, total 0.30 mg/dL 0.00-1.00 cholesterol, serum 214 mg/dL 820-437 2484/12/19 triglyceride, serum, fasting 351 mg/dL 30-200 HDL cholesterol, serum 52 mg/dL 32-96 LDL cholesterol, serum 92 mg/dL 0-130 chloride, serum 101 mmol/L 98-107 potassium, serum 4.9 mmol/L 3.5-5.2 sodium, serum 143 mmol/L 136-145 Lab Report: HEMOGLOBIN A1c, MicroAlb Ran dom [...] 4.3-6.0 Encounters Code Encounter Date Provider Facility CPT-45685 Level 4 Est. Patient 12:25:11 CDT Baltazar Childers MD [facility]-54066 Level 4 Est. Patient 14:22:31 CDT Baltazar Childers MD [facility]-10961 Level 4 Est. Patient 15:44:38 CDT Shonna Elena CASTELLANOS [facility] CPT-56484 Level 4 Est. Patient 11:34:17 CDT Baltazar Childers MD [facility]-17280 Level 3 Est. Patient 16:40:40 CDT Baltazar Childers MD [facility] CPT-94593 Level 4 Est. Patient 10:41:24 CDT Baltazar Childers MD [facility]-84184 Level 4 Est. Patient 16:01:48 CDT Baltazar Childers MD [facility]-40865 Level 4 Est. Patient 16:54:07 [employer] Baltazar Childers MD [facility]-77649 Level 4 Est. Patient 15:42:12 CDT Baltazar Childers MD [facility] CPT-94162 Level 4 Est. Patient 11:29:55 CDT Baltazar Childers MD [facility] CPT-38855 Level 4 Est. Patient 14:15:19 CDT Baltazar Childers MD [facility] CPT-98010 Level 4 Est. Patient 12:20:13 CDT Baltazar Childers MD [facility] CPT-47360 Level 4 Est. Patient 14:52:45 [employer] Baltazar Childers MD [facility] CPT-30430 Level 4 Est. Patient 14:18:34 [employer] Baltazar Childers MD [facility] [place]-68568 Level 4 Est. Patient 15:18:29 CDT Baltazar Childers MD [facility] CPT-25070 Level 3 Est. Patient 12:45:34 CDT Baltazar Childers MD [facility] CPT-31871 Level 3 Est. Patient 10:10:11 CDT Baltazar Childers MD [facility] CPT-25920 Level 3 Est. Patient 14:07:50 CDT Baltazar Childers MD [facility] CPT-98133 Level 4 Est. Patient 12:26:10 [employer] Baltazar Childers MD [facility] CPT-17561 Level 4 Est. Patient 14:45:38 CDT Baltazar Childers MD [facility] CPT-49138 Level 4 New Patient 12:30:48 CDT Baltazar hinton MD [facility] Procedures Code Procedure Name Date Entry Date Standard Desc ription CPT-33197 First Vx - Ix admin via ID I M or jet injects without counseling by physician 13:08:59 CDT CPT-35106 Fluzone Quadrivalent Intramuscular Suspe nsion 0.5 ML 13:08:59 CDT CPT-25671 Venipuncture Draw Fee 12:04:12 CDT CPT-71911 Lipid - LAB USE ONLY 17:39:15 [employer] 9 CPT-60705 HGBA1C - LAB USE ONLY 17:39:15 [employer] CPT-61056 CMP - LAB USE ONLY 17:39:14 [employer] CPT-07542 Venipuncture Draw Fee 17:39:14 [employer] CPT-44319 First Vx - Ix admin via ID I M or jet injects without counseling by physician 16:55:17 [employer] CPT-76069 Fluzone Quadrivalent Intramuscular Suspe nsion 0.5 ML 16:55:17 [employer] CPT-57499 Renal Panel - LAB USE ONLY 17:39:20 CDT 201 10/31/07 CPT-39121 CBC - LAB USE ONLY 17:39:20 CDT CPT-44901 Venipuncture Draw Fee 17:39:20 CDT CPT-98590 Venipuncture Draw Fee 14:33:30 CDT CPT-40229 Renal Panel - LAB USE ONLY 14:33:30 CDT 201 10/31/07 CPT-57573 CBC - LAB USE ONLY 14:33:29 CDT CPT-73800 Venipuncture Draw Fee 14:50:21 [employer] CPT-30571 Immunization Single Admin 17:35:35 CDT 2014 CPT-86316 Fluzone Quadrivalent preservative free ( >=3yrs.) 17:35:35 CDT CPT-54513 Venipuncture Draw Fee 12:10:27 [employer] CPT-81388 Fluzone Quadrivalent Intramuscular Suspe nsion 0.5 ML 10:49:13 CDT CPT-23086 First Vx Component - Ix admi n via ID IM or jet inj without physician counseling 15:17:19 [employer] CPT-38451 Pneumovax 23 15:17:19 [employer]B [employer]SEM[employer] CPT-82175 Pneumovax 14:52:45 [employer] CPT-14452 Venipuncture Draw Fee 14:06:30 [employer] CPT-000 Give Appropriate Flu Vaccine 14:18:34 [employer]ER 2 CPT-69684 Administration single or combination vac cine inc oral 14:46:00 [employer] CPT-34886 Influenza split virus > age 3 14:46:00 [employer] CPT-OV Office Visit 19:13:16 CDT CPT-54719 Zostavax 18:41:56 CDT CPT-86117 Administration single or combination vac cine inc oral 12:56:39 CDT CPT-77867 Zoster Vaccine (Zostavax) 12:56:39 CDT 2012 CPT-97286 Venipuncture Draw Fee 10:58:57 CDT CPT-01359 Sono pelvis non OB uterus ovaries cervix 17:45:04 CDT CPT-26139 Sono retroperitoneal complete kidneys an d bladder 17:14:36 CDT CPT-OV Office Visit 14:59:38 [employer] CPT-J1070 Depo Testosterone 100 mg 14:50:13 CDT 03/05 CPT-13088 Abx/Therapy Injection 14:50:13 CDT CPT-28027 Administration single or combination vac cine inc oral 14:34:43 CDT CPT-48790 Influenza split virus > age 3 14:34:43 CDT CPT-J1070 Depo Testosterone 100 mg 17:37:13 CDT 01/11 CPT-75720 Abx/Therapy Injection 17:37:13 CDT CPT-11811 Venipuncture Draw Fee 16:30:13 CDT CPT-11364 Venipuncture Draw Fee 16:29:43 CDT CPT-J1070 Depo Testosterone 100 mg 14:45:38 CDT 01/11
--- OUTSIDE RECORDS SUMMARY | 2019-10-27 13:37 | XMS REPORT | Clinical Summary ---
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 Benign neoplasm of colon PERIPHERAL NEUROPATHY 356.9 [...] ronary atherosclerosis of unspecified type of vessel, [place] or graft OTH NONSPC ABN FINDNG RAD&OTH [...] tablet by mouth daily LE VOTHYROXINE SODIUM 52051922896 Active Carina Tucker LPN Active GLIPIZIDE 10 MG TAB take 2 tablets twice daily GLIPIZIDE 86915434682 Active KENDALL Juarez Active SUCRALFATE 1 GM TABS 1 four times a day to coat the stomach 2015 SUCRALFATE 56222252325 No Longer Active Baltazar Childers MD Active PEN NEEDLES 31G X 6 MM MISC use 1 daily INSULIN PEN NEEDLE 38523061591 Active Bella Suarez EPIDEMIOLOGY INVESTIGATOR Active TOURINKUO SOLOSTAR 300 UNIT/ML SC SOPN 10 units SC daily INSULIN GLARGINE 83189109803 No Longer Active Martita Godinez KENDALL Active LANTUS SOLOSTAR 100 UNIT/ML SC SOPN 10 units SC daily INSULIN GLARGINE 51414566289 Active Baltazar Childers MD Active NAPROXEN SODIUM 220 MG ORAL TABS 1 three times a day as needed 2 NAPROXEN SODIUM 96063442978 No Longer Active Baltazar Childers MD Active ATORVASTATIN CALCIUM 20 MG ORAL TABS Take 1 tab daily ATORVASTATIN CALCIUM 15669784614 Active Baltazar Childers MD Active FUROSEMIDE 40 MG TABS Take one by mouth daily FUROSEMIDE 66153837162 Active Baltazar Childers MD Active LISINOPRIL 20 MG TABS Take one by mouth daily at bedtime LISINOPRIL 34959965422 Active KENDALL Juarez Active ONETOUCH ULTRA BLUE STRP Test twice a day GLUCO SE BLOOD 50403842808 No Longer Active Baltazar Childers MD Active TRUEPLUS LANCETS 33G MISC Test twice a day LANCET S 20260440621 Active KENDALL Juarez Active TRUEDRAW LANCING DEVICE MISC Test twice a day L ANCET DEVICES 59198622856 Active Baltazar Childers MD Active TRUETRACK TEST STRP Test twice a day GLUCOSE BLOO D 55488126863 Active KENDALL Juarez Active TRUETRACK BLOOD GLUCOSE W/DEVICE KIT Test twice a day BLOOD GLUCOSE MONITORING SUPPL 30328602383 Active Baltazar Childers MD Activ e HYDROCODONE-ACETAMINOPHEN 7.5-325 MG TABS Take 1 tab every 6-8 hour s PRN HYDROCODONE-ACETAMINOPHEN 05754478385 Active Shonna Parker APRN Active NORTRIPTYLINE HCL 50 MG CAPS 1 every night for neuropathy 4 NORTRIPTYLINE HCL 13108178103 Active Baltazar Childers MD Acti ve GABAPENTIN 300 MG CAPS 1 three times a day GABAPE NTIN 75642116829 Active KENDALL Juarez Active GABAPENTIN 300 MG CAPS 1 po qd x 2 days, then 1 po BID x 2 d ays, then 1 po TID GABAPENTIN 66932000221 No Longer Active Baltazar silverman MD Active TRAMADOL HCL 50 MG TABS 1 twice a day as needed for pain TRAMADOL HCL 60803543629 Active Shonna Parker APRN Active NAPROXEN 500 MG TABS 1 tablet by mouth twice daily NAPROXEN 90323069137 No Longer Active Baltazar Childers MD Active PROAIR HFA 108 (90 BASE) MCG/ACT AERS 2 puffs four times a d ay as needed ALBUTEROL SULFATE 99140534070 Active KENDALL Juarez Active DEPO-TESTOSTERONE 200 MG/ML OIL as directed RUFINO TOSTERONE CYPIONATE 01595099531 No Longer Active Baltazar Childers MD Active LIPITOR 20 MG TABS Take one by mouth daily in evening ATORVASTATIN CALCIUM 61653825953 No Longer Active Baltazar Childers MD Activ e CRESTOR 10 MG TABS 1 by mouth every day R OSUVASTATIN CALCIUM 76851335495 No Longer Active Baltazar Childers MD Activ e PHENTERMINE HCL 37.5 MG TABS Take one by mouth daily 2 PHENTERMINE HCL 17626048904 No Longer Active Baltazar Childers MD Activ e ROBAXIN-750 750 MG TABS Take one by mouth daily ME THOCARBAMOL 39822865581 Active Baltazar Childers MD Active TIZANIDINE HCL 4 MG TABS 1 daily as needed for muscle spasm 2011 TIZANIDINE HCL 89137889245 No Longer Active Dawna Salazar RN Active [id number]-BYOBIVAY 50-325-40 MG TABS 1 four time s a day as needed for heacache [id number] 35726505404 Active Shonna Parker APRN Active SUMATRIPTAN SUCCINATE 100 MG TABS 1 tablet by mouth at onset of migraine as needed SUMATRIPTAN SUCCINATE 40264780222 Active Shonna Villaseñor er EPIDEMIOLOGY INVESTIGATOR Active LORATADINE 10 MG TABS Take one by mouth daily LORATADINE 16538340188 Active KENDALL Juarez Active OMEPRAZOLE 20 MG CPDR Take one by mouth daily OMEPRAZOLE 54081594827 Active KENDALL Juarez Active HYDROXYZINE HCL 25 MG TABS Take one by mouth daily HYDROXYZINE HCL 74188915572 Active Baltazar Childers MD Active ALPRAZOLAM 1 MG TABS 1 tablet by mouth daily at bedtime for restles s leg ALPRAZOLAM 13557337134 Active Baltazar Childers MD Active METFORMIN HCL 1000 MG TABS Take one by mouth twice daily METFORMIN HCL 63499953325 Active KENDALL Juarez Active TIZANIDINE HCL 4 MG TABS 1 daily as needed for muscle spasm 2011 TIZANIDINE HCL 4 MG TABS 523305 TIZANIDINE HCL Inactiv e PHENTERMINE HCL 37.5 MG TABS Take one by mouth daily 2 PHENTERMINE HCL 37.5 MG TABS 072423 PHENTERMINE HCL Inactive CRESTOR 10 MG TABS 1 by mouth every day C RESTOR 10 MG TABS 053222 ROSUVASTATIN CALCIUM Inactive LIPITOR 20 MG TABS Take one by mouth daily in evening LIPITOR 20 MG TABS 938831 ATORVASTATIN CALCIUM Inactive DEPO-TESTOSTERONE 200 MG/ML OIL as directed 8 DEPO-TESTOSTERONE 200 MG/ML OIL 029205 TESTOSTERONE CYPIONATE Inactive NAPROXEN 500 MG TABS 1 tablet by mouth twice daily 201 07/27/22 NAPROXEN 500 MG TABS 657392 NAPROXEN Inactive GABAPENTIN 300 MG CAPS 1 po qd x 2 days, then 1 po BID x 2 d ays, then 1 po TID GABAPENTIN 300 MG CAPS 595448 GABAPENTIN Inact amie ONETOUCH ULTRA BLUE STRP Test twice a day ONETOUCH ULTRA BLUE STRP GLUCOSE BLOOD Inactive NAPROXEN SODIUM 220 MG ORAL TABS 1 three times a day as needed 2 NAPROXEN SODIUM 220 MG ORAL TABS 139307 NAPROXEN SODIUM Inactive TOUJEO SOLOSTAR 300 UNIT/ML SC SOPN 10 units SC daily TOUJEO SOLOSTAR 300 UNIT/ML SC SOPN INSULIN GLARGINE Inac tive SUCRALFATE 1 GM TABS 1 four times a day to coat the stomach 2015 SUCRALFATE 1 GM TABS 237688 SUCRALFATE Inactive Immunizations Vaccine Administration Date Value Standard Floyd cription pneumococcal immunization administered Pneumovax 23 [CVX33] pneumococcal polysaccharide vaccine, 23 valent Seasonal influenza vaccine, injectable, containing preservative, for > 3 years old (Afluria, FluLaval, Fluzone, Fluvirin, Fluarix, Agriflu(>= 18 yo)) Fluzone (>3 yrs.) [[id number]] Influenza, seasonal, inject able Seasonal influenza vaccine, injectable, containing preservative, for > 3 years old (Afluria, FluLaval, Fluzone, Fluvirin, Fluarix, Agriflu(>= 18 yo)) Fluzone (>3 yrs.) [CKT811] Influenza, seasonal, inject able Vital Signs Date [...] C - Chemistry sodium, serum 139 mmol/L 985-884 6349/07/07 potassium, serum 4.5 mmol/L 3.5-5.2 chloride, serum [...] Panel - Chemistry sodium, serum 143 mmol/L 152-513 6051/12/19 carbon dioxide, venous blood 32.5 mmol/L 21.0-32 .0 potassium, serum 4.9 mmol/L 3.5-5.2 chloride, serum 101 mmol/L 98-107 blood glucose 129 mg/dL 65-110 urea nitrogen, blood 18 mg/dL 7-18 creatinine, serum 1.79 mg/dL 0.55-1.30 alanine aminotransferase (SGPT), serum 34 U/L 12-78 aspartate aminotransferase (SGOT), serum 26 U/L 15-37 calcium, serum 8.9 mg/dL 8.5-10.1 bilirubin, serum, total 0.30 mg/dL 0.00-1.00 cholesterol, serum 214 mg/dL 410-507 7092/12/19 triglyceride, serum, fasting 351 mg/dL 30-200 HDL [...] Panel - Chemistry sodium, serum 141 mmol/L 925-326 9932/08/08 potassium, serum 4.9 mmol/L 3.5-5.2 chloride, serum 101 mmol/L 98-107 carbon dioxide, venous blood 34.1 mmol/L 21.0-32 .0 creatinine, serum 1.98 mg/dL 0.55-1.30 blood glucose 193 mg/dL 65-110 urea nitrogen, blood 30 mg/dL 7-18 calcium, serum 9.8 mg/dL 8.5-10.1 Encounters Code Encounter Date Provider Facility CPT-57626 Level 4 Est. Patient 15:44:38 CDT Shonna Parker APRN [facility] CPT-95698 Level 4 Est. Patient 11:34:17 CDT Baltazar Childers MD [facility] CPT-95352 Level 3 Est. Patient 16:40:40 CDT Baltazar Childers MD [facility] CPT-84283 Level 4 Est. Patient 10:41:24 CDT Baltazar Childers MD [facility] CPT-50892 Level 4 Est. Patient 16:01:48 CDT Baltazar Childers MD [facility] CPT-34774 Level 4 Est. Patient 16:54:07 PROJECT RESERVOIR ENGINEER Baltazar Childers MD [facility] CPT-83945 Level 4 Est. Patient 15:42:12 CDT Baltazar Childers MD [facility] CPT-35634 Level 4 Est. Patient 11:29:55 CDT Baltazar Childers MD [facility] CPT-48708 Level 4 Est. Patient 14:15:19 CDT Baltazar Childers MD [facility] CPT-14017 Level 4 Est. Patient 12:20:13 CDT Baltazar Childers MD [facility] CPT-59086 Level 4 Est. Patient 14:52:45 PROJECT RESERVOIR ENGINEER Baltazar Childers MD [facility] CPT-59671 Level 4 Est. Patient 14:18:34 PROJECT RESERVOIR ENGINEER Baltazar Childers MD [facility] CPT-45304 Level 4 Est. Patient 15:18:29 CDT Baltazar Childers MD [facility] CPT-93037 Level 3 Est. Patient 12:45:34 CDT Baltazar Childers MD [facility] CPT-82038 Level 3 Est. Patient 10:10:11 CDT Baltazar Childers MD [facility] CPT-21915 Level 3 Est. Patient 14:07:50 CDT Baltazar Childers MD [facility] CPT-16028 Level 4 Est. Patient 12:26:10 PROJECT RESERVOIR ENGINEER Baltazar Childers MD [facility] CPT-37769 Level 4 Est. Patient 14:45:38 CDT Baltazar Childers MD [facility] CPT-82680 Level 4 New Patient 12:30:48 CDT Baltazar hinton MD [facility] Procedures Code Procedure Name Date Entry Date Standard Desc ription CPT-46123 Lipid - LAB USE ONLY 17:39:15 PROJECT RESERVOIR ENGINEER 9 CPT-02585 HGBA1C - LAB USE ONLY 17:39:15 PROJECT RESERVOIR ENGINEER CPT-45129 CMP - LAB USE ONLY 17:39:14 PROJECT RESERVOIR ENGINEER CPT-62530 Venipuncture Draw Fee 17:39:14 PROJECT RESERVOIR ENGINEER CPT-53159 First Vx - Ix admin via ID I M or jet injects without counseling by physician 16:55:17 PROJECT RESERVOIR ENGINEER CPT-34017 Fluzone Quadrivalent Intramuscular Suspe nsion 0.5 ML 16:55:17 PROJECT RESERVOIR ENGINEER CPT-22150 Renal Panel - LAB USE ONLY 17:39:20 CDT 201 10/31/07 CPT-85852 CBC - LAB USE ONLY 17:39:20 CDT CPT-80679 Venipuncture Draw Fee 17:39:20 CDT CPT-10154 Venipuncture Draw Fee 14:33:30 CDT CPT-31961 Renal Panel - LAB USE ONLY 14:33:30 CDT 201 10/31/07 CPT-59780 CBC - LAB USE ONLY 14:33:29 CDT CPT-72537 Venipuncture Draw Fee 14:50:21 PROJECT RESERVOIR ENGINEER CPT-86719 Immunization Single Admin 17:35:35 CDT 2014 CPT-18023 Fluzone Quadrivalent preservative free ( >=3yrs.) 17:35:35 CDT CPT-42403 Venipuncture Draw Fee 12:10:27 PROJECT RESERVOIR ENGINEER CPT-22025 Fluzone Quadrivalent Intramuscular Suspe nsion 0.5 ML 10:49:13 CDT CPT-45694 First Vx Component - Ix admi n via ID IM or jet inj without physician counseling 15:17:19 PROJECT RESERVOIR ENGINEER CPT-66035 Pneumovax 23 15:17:19 PROJECT RESERVOIR ENGINEER CPT-20722 Pneumovax 14:52:45 PROJECT RESERVOIR ENGINEER CPT-28668 Venipuncture Draw Fee 14:06:30 PROJECT RESERVOIR ENGINEER CPT-000 Give Appropriate Flu Vaccine 14:18:34 PROJECT RESERVOIR ENGINEER 2 CPT-28731 Administration single or combination vac cine inc oral 14:46:00 PROJECT RESERVOIR ENGINEER CPT-68729 Influenza split virus > age 3 14:46:00 PROJECT RESERVOIR ENGINEER CPT-OV Office Visit 19:13:16 CDT CPT-86449 Zostavax 18:41:56 CDT CPT-00974 Administration single or combination vac cine inc oral 12:56:39 CDT CPT-90825 Zoster Vaccine (Zostavax) 12:56:39 CDT 2012 CPT-46609 Venipuncture Draw Fee 10:58:57 CDT CPT-34548 Sono pelvis non OB uterus ovaries cervix 17:45:04 CDT CPT-61642 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
--- OUTSIDE RECORDS SUMMARY | 2019-10-27 13:37 | XMS REPORT | Clinical Summary ---
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 Benign neoplasm of colon PERIPHERAL NEUROPATHY 356.9 [...] y atherosclerosis of unspecified type of vessel, [place] or graft OTH NONSPC ABN FINDNG [...] MISC Test twice a day LANCET S 04541812956 Active Baltazar Childers MD Active TRUEDRAW LANCING DEVICE MISC Test twice a day L ANCET DEVICES 97894100533 Active Baltazar Childers MD Active TRUETRACK TEST STRP Test twice a day GLUCOSE BLOO D 32904847963 Active Baltazar Childers MD Active TRUETRACK BLOOD GLUCOSE W/DEVICE KIT Test twice a day BLOOD GLUCOSE MONITORING SUPPL 57550029862 Active Bella Suarez APRN Active HYDROCODONE-ACETAMINOPHEN 7.5-325 MG TABS Take 1 tab every 6-8 hour s PRN HYDROCODONE-ACETAMINOPHEN 11460460245 Active Baltazar Childers MD Active NORTRIPTYLINE HCL 50 MG CAPS 1 every night for neuropathy 4 NORTRIPTYLINE HCL 61597352479 Active Bella Suarez APRN Active GABAPENTIN 300 MG CAPS 1 three times a day GABAPE NTIN 11453490059 Active Baltazar Childers MD Active GABAPENTIN 300 MG CAPS 1 po qd x 2 days, then 1 po BID x 2 d ays, then 1 po TID GABAPENTIN 17900822725 No Longer Active Baltazar silverman MD Active TRAMADOL HCL 50 MG TABS 1 twice a day as needed for pain TRAMADOL HCL 27180407498 Active Baltazar Childers MD Active NAPROXEN 500 MG TABS 1 tablet by mouth twice daily NAPROXEN 26551380689 No Longer Active Baltazar Childers MD Active PROAIR HFA 108 (90 BASE) MCG/ACT AERS 2 puffs four times a d ay as needed ALBUTEROL SULFATE 00402342248 Active Baltazar Childers MD Active DEPO-TESTOSTERONE 200 MG/ML OIL as directed RUFINO TOSTERONE CYPIONATE 87287521581 No Longer Active Baltazar Childers MD Active LIPITOR 20 MG TABS Take one by mouth daily in evening ATORVASTATIN CALCIUM 97132735580 No Longer Active Baltazar Childers MD Activ e CRESTOR 10 MG TABS 1 by mouth every day R OSUVASTATIN CALCIUM 23177204608 No Longer Active Baltazar Childers MD Activ e PHENTERMINE HCL 37.5 MG TABS Take one by mouth daily 2 PHENTERMINE HCL 60436038614 No Longer Active Baltazar Childers MD Activ e ROBAXIN-750 750 MG TABS Take one by mouth daily ME THOCARBAMOL 59208974301 Active Baltazar Childers MD Active TIZANIDINE HCL 4 MG TABS 1 daily as needed for muscle spasm 2011 TIZANIDINE HCL 74925458190 No Longer Active Dawna Salazar RN Active DXYUCH ULTRA BLUE STRP Test twice a day GLUCO SE BLOOD 03166603587 Active Baltazar Childers MD Active GDEPTVOOVL-EKAW-RURKQKZS 50-325-40 MG TABS 1 four time s a day as needed for heacache [id number] 19480084997 Active Baltazar Childers MD Active SUMATRIPTAN SUCCINATE 100 MG TABS 1 tablet by mouth at onset of migraine as needed SUMATRIPTAN SUCCINATE 08445315521 Active Baltazar barron MD Active LORATADINE 10 MG TABS Take one by mouth daily LORATADINE 50454469134 Active Baltazar Childers MD Active FUROSEMIDE 40 MG TABS Take one by mouth daily FUROSEMIDE 64015670611 Active Baltazar Childers MD Active LISINOPRIL 20 MG TABS Take one by mouth daily at bedtime LISINOPRIL 07386074504 Active Bella Suarez APRN Active OMEPRAZOLE 20 MG CPDR Take one by mouth daily OMEPRAZOLE 74504883898 Active Baltazar Childers MD Active HYDROXYZINE HCL 25 MG TABS Take one by mouth daily HYDROXYZINE HCL 30520178537 Active Baltazar Childers MD Active GLIPIZIDE 10 MG TABS 1 tablet by mouth twice daily GLIPIZIDE 50452821532 Active Bella Suarez APRN Active ALPRAZOLAM 1 MG TABS 1 tablet by mouth daily at bedtime for restles s leg ALPRAZOLAM 29246870281 Active Baltazar Childers MD Active METFORMIN HCL 1000 MG TABS Take one by mouth twice daily METFORMIN HCL 84590579178 Active Bella Suarez MELTING FURNACE SKIMMER Active TIZANIDINE HCL 4 MG TABS 1 daily as needed for muscle spasm 2011 TIZANIDINE HCL 4 MG TABS 327608 TIZANIDINE HCL Inactiv e PHENTERMINE HCL 37.5 MG TABS Take one by mouth daily 2 PHENTERMINE HCL 37.5 MG TABS 748287 PHENTERMINE HCL Inactive CRESTOR 10 MG TABS 1 by mouth every day C RESTOR 10 MG TABS ROSUVASTATIN CALCIUM Inactive LIPITOR 20 MG TABS Take one by mouth daily in evening LIPITOR 20 MG TABS 698953 ATORVASTATIN CALCIUM Inactive DEPO-TESTOSTERONE 200 MG/ML OIL as directed 8 DEPO-TESTOSTERONE 200 MG/ML OIL 554516 TESTOSTERONE CYPIONATE Inactive NAPROXEN 500 MG TABS 1 tablet by mouth twice daily 201 07/27/22 NAPROXEN 500 MG TABS 159791 NAPROXEN Inactive GABAPENTIN 300 MG CAPS 1 po qd x 2 days, then 1 po BID x 2 d ays, then 1 po TID GABAPENTIN 300 MG CAPS 250044 GABAPENTIN Inact amie Immunizations Vaccine Administration Date Value Standard Floyd cription pneumococcal immunization administered Pneumovax 23 [CVX33] pneumococcal polysaccharide vaccine, 23 valent Seasonal influenza vaccine, injectable, containing preservative, for > 3 years old (Afluria, FluLaval, Fluzone, Fluvirin, Fluarix, Agriflu(>= 18 yo)) Fluzone (>3 yrs.) [TQX910] Influenza, seasonal, inject able Seasonal influenza vaccine, injectable, containing preservative, for > 3 years old (Afluria, FluLaval, Fluzone, Fluvirin, Fluarix, Agriflu(>= 18 yo)) Fluzone (>3 yrs.) [KPS966] Influenza, seasonal, inject able Vital Signs Date [...] Panel - Chemistry sodium, serum 139 mmol/L 240-857 7752/01/20 potassium, serum 5.3 mmol/L 3.5-5.2 chloride, serum [...] mg/g mg/g{creat} 0-29 cholesterol, serum 319 mg/dL 695-882 5801/08/21 triglyceride, serum, fasting 546 mg/dL 30-200 HDL cholesterol, serum 39 mg/dL 32-96 LDL cholesterol, serum 167.00 mg/dL 5.00-130.00 hemoglobin A1C, blood, as % of total hemoglobin 7.7 % 4.3-6.0 sodium, serum 138 mmol/L 312-245 5404/08/21 potassium, serum 4.3 mmol/L 3.5-5.2 chloride, serum [...] 0-19 Encounters Code Encounter Date Provider Facility CPT-87130 Level 4 Est. Patient 14:15:19 CDT Baltazar Childers MD [facility] CPT-12462 Level 4 Est. Patient 12:20:13 CDT Baltazar Childers MD [facility] CPT-22369 Level 4 Est. Patient 14:52:45 STAFFING MANAGER Baltazar Childers MD [facility] CPT-97207 Level 4 Est. Patient 14:18:34 STAFFING MANAGER Baltazar Childers MD [facility] CPT-94135 Level 4 Est. Patient 15:18:29 CDT Baltazar Childers MD [facility] CPT-81569 Level 3 Est. Patient 12:45:34 CDT Baltazar Childers MD [facility] CPT-51424 Level 3 Est. Patient 10:10:11 CDT Baltazar Childers MD [facility] CPT-50307 Level 3 Est. Patient 14:07:50 CDT Baltazar Childres MD [facility] CPT-93526 Level 4 Est. Patient 12:26:10 STAFFING MANAGER Baltazar Childers MD [facility] CPT-30394 Level 4 Est. Patient 14:45:38 CDT Baltazar Childers MD [facility] CPT-93571 Level 4 New Patient 12:30:48 CDT Baltazar hinton MD [facility] Procedures Code Procedure Name Date Entry Date Standard Desc ription CPT-28285 Venipuncture Draw Fee 12:10:27 STAFFING MANAGER CPT-14541 Fluzone Quadrivalent Intramuscular Suspe nsion 0.5 ML 10:49:13 CDT CPT-04124 First Vx Component - Ix admi n via ID IM or jet inj without physician counseling 15:17:19 STAFFING MANAGER CPT-87456 Pneumovax 23 15:17:19 STAFFING MANAGER CPT-16100 Pneumovax 14:52:45 STAFFING MANAGER CPT-05988 Venipuncture Draw Fee 14:06:30 STAFFING MANAGER CPT-000 Give Appropriate Flu Vaccine 14:18:34 STAFFING MANAGER 2 CPT-97484 Administration single or combination vac cine inc oral 14:46:00 STAFFING MANAGER CPT-22748 Influenza split virus > age 3 14:46:00 STAFFING MANAGER CPT-OV Office Visit 19:13:16 CDT CPT-41465 Zostavax 18:41:56 CDT CPT-49892 Administration single or combination vac cine inc oral 12:56:39 CDT CPT-44078 Zoster Vaccine (Zostavax) 12:56:39 CDT 2012 CPT-22563 Venipuncture Draw Fee 10:58:57 CDT CPT-20960 Sono pelvis non OB uterus ovaries cervix 17:45:04 CDT CPT-65267 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
--- OUTSIDE RECORDS SUMMARY | 2019-10-27 13:37 | XMS REPORT | Clinical Summary ---
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 Benign neoplasm of colon PERIPHERAL NEUROPATHY [...] y atherosclerosis of unspecified type of vessel, [place] or graft OTH NONSPC ABN FINDNG RAD&OTH [...] MISC Test twice a day LANCET S 33950325010 Active Baltazar Childers MD Active TRUEDRAW LANCING DEVICE MISC Test twice a day L ANCET DEVICES 29094229716 Active Baltazar Childers MD Active TRUETRACK TEST STRP Test twice a day GLUCOSE BLOO D 78027358144 Active Baltazar Childers MD Active TRUETRACK BLOOD GLUCOSE W/DEVICE KIT Test twice a day BLOOD GLUCOSE MONITORING SUPPL 03305044961 Active Bella Suarez APRN Active HYDROCODONE-ACETAMINOPHEN 7.5-325 MG TABS Take 1 tab every 6-8 hour s PRN HYDROCODONE-ACETAMINOPHEN 48414857910 Active Baltazar Childers MD Active NORTRIPTYLINE HCL 50 MG CAPS 1 every night for neuropathy 4 NORTRIPTYLINE HCL 42244561566 Active Bella Suarez APRN Active GABAPENTIN 300 MG CAPS 1 three times a day GABAPE NTIN 31440205773 Active Baltazar Childers MD Active GABAPENTIN 300 MG CAPS 1 po qd x 2 days, then 1 po BID x 2 d ays, then 1 po TID GABAPENTIN 76386217746 No Longer Active Baltaazr silverman MD Active TRAMADOL HCL 50 MG TABS 1 twice a day as needed for pain TRAMADOL HCL 68082744992 Active Baltazar Childers MD Active NAPROXEN 500 MG TABS 1 tablet by mouth twice daily NAPROXEN 36660075176 No Longer Active Baltazar Childers MD Active PROAIR HFA 108 (90 BASE) MCG/ACT AERS 2 puffs four times a d ay as needed ALBUTEROL SULFATE 48280553081 Active Baltazar Childers MD Active DEPO-TESTOSTERONE 200 MG/ML OIL as directed RUFINO TOSTERONE CYPIONATE 49165004641 No Longer Active Baltazar Childers MD Active LIPITOR 20 MG TABS Take one by mouth daily in evening ATORVASTATIN CALCIUM 49251892939 No Longer Active Baltazar Childers MD Activ e CRESTOR 10 MG TABS 1 by mouth every day R OSUVASTATIN CALCIUM 04907535278 No Longer Active Baltazar Childers MD Activ e PHENTERMINE HCL 37.5 MG TABS Take one by mouth daily 2 PHENTERMINE HCL 44079058601 No Longer Active Baltazar Childers MD Activ e ROBAXIN-750 750 MG TABS Take one by mouth daily ME THOCARBAMOL 04291828118 Active Baltazar Childers MD Active TIZANIDINE HCL 4 MG TABS 1 daily as needed for muscle spasm 2011 TIZANIDINE HCL 69826074109 No Longer Active Dawna Salazar RN Active SynlogicUCH ULTRA BLUE STRP Test twice a day GLUCO SE BLOOD 93998731767 Active Baltazar Childers MD Active [id number] 50-325-40 MG TABS 1 four time s a day as needed for heacache [id number] 02398708098 Active Baltazar Childers MD Active SUMATRIPTAN SUCCINATE 100 MG TABS 1 tablet by mouth at onset of migraine as needed SUMATRIPTAN SUCCINATE 69491247920 Active Baltazar barron MD Active LORATADINE 10 MG TABS Take one by mouth daily LORATADINE 59980962618 Active Baltazar Childers MD Active FUROSEMIDE 40 MG TABS Take one by mouth daily FUROSEMIDE 14692393976 Active Baltazar Childers MD Active LISINOPRIL 20 MG TABS Take one by mouth daily at bedtime LISINOPRIL 22229864550 Active Bella Suarez APRN Active OMEPRAZOLE 20 MG CPDR Take one by mouth daily OMEPRAZOLE 71178915967 Active Baltazar Childers MD Active HYDROXYZINE HCL 25 MG TABS Take one by mouth daily HYDROXYZINE HCL 17689671438 Active Baltazar Childers MD Active GLIPIZIDE 10 MG TABS 1 tablet by mouth twice daily GLIPIZIDE 69515341089 Active Batlazar Childers MD Active ALPRAZOLAM 1 MG TABS 1 tablet by mouth daily at bedtime for restles s leg ALPRAZOLAM 56415513372 Active Baltazar Childers MD Active METFORMIN HCL 1000 MG TABS Take one by mouth twice daily METFORMIN HCL 71648767128 Active Baltazar Childers MD Active TIZANIDINE HCL 4 MG TABS 1 daily as needed for muscle spasm 2011 TIZANIDINE HCL 4 MG TABS 371999 TIZANIDINE HCL Inactiv e PHENTERMINE HCL 37.5 MG TABS Take one by mouth daily 2 PHENTERMINE HCL 37.5 MG TABS 265267 PHENTERMINE HCL Inactive CRESTOR 10 MG TABS 1 by mouth every day C RESTOR 10 MG TABS ROSUVASTATIN CALCIUM Inactive LIPITOR 20 MG TABS Take one by mouth daily in evening LIPITOR 20 MG TABS 250748 ATORVASTATIN CALCIUM Inactive DEPO-TESTOSTERONE 200 MG/ML OIL as directed 8 DEPO-TESTOSTERONE 200 MG/ML OIL 221217 TESTOSTERONE CYPIONATE Inactive NAPROXEN 500 MG TABS 1 tablet by mouth twice daily 201 07/27/22 NAPROXEN 500 MG TABS 536399 NAPROXEN Inactive GABAPENTIN 300 MG CAPS 1 po qd x 2 days, then 1 po BID x 2 d ays, then 1 po TID GABAPENTIN 300 MG CAPS 080761 GABAPENTIN Inact amie Immunizations Vaccine Administration Date Value Standard Floyd cription pneumococcal immunization administered Pneumovax 23 [CVX33] pneumococcal polysaccharide vaccine, 23 valent Seasonal influenza vaccine, injectable, containing preservative, for > 3 years old (Afluria, FluLaval, Fluzone, Fluvirin, Fluarix, Agriflu(>= 18 yo)) Fluzone (>3 yrs.) [[id number]] Influenza, seasonal, inject able Seasonal influenza vaccine, injectable, containing preservative, for > 3 years old (Afluria, FluLaval, Fluzone, Fluvirin, Fluarix, Agriflu(>= 18 yo)) Fluzone (>3 yrs.) [[id number]] Influenza, seasonal, inject able Vital Signs Date [...] Panel - Chemistry sodium, serum 139 mmol/L 638-418 9847/01/20 potassium, serum 5.3 mmol/L 3.5-5.2 chloride, serum [...] mg/g mg/g{creat} 0-29 cholesterol, serum 319 mg/dL 771-079 0292/08/21 triglyceride, serum, fasting 546 mg/dL 30-200 HDL cholesterol, serum 39 mg/dL 32-96 LDL cholesterol, serum 167.00 mg/dL 5.00-130.00 hemoglobin A1C, blood, as % of total hemoglobin 7.7 % 4.3-6.0 sodium, serum 138 mmol/L 812-068 4933/08/21 potassium, serum 4.3 mmol/L 3.5-5.2 chloride, serum [...] 0-19 Encounters Code Encounter Date Provider Facility CPT-64356 Level 4 Est. Patient 14:15:19 CDT Baltazar Childers MD [facility] CPT-46791 Level 4 Est. Patient 12:20:13 CDT Baltazar Childers MD [facility] CPT-67266 Level 4 Est. Patient 14:52:45 MANAGER GREEN Baltazar Childers MD [facility] CPT-50442 Level 4 Est. Patient 14:18:34 MANAGER GREEN Baltazar Childers MD [facility] CPT-86921 Level 4 Est. Patient 15:18:29 CDT Baltazar Childers MD [facility] CPT-99425 Level 3 Est. Patient 12:45:34 CDT Baltazar Childers MD [facility] CPT-32511 Level 3 Est. Patient 10:10:11 CDT Baltazar Childers MD [facility] CPT-35848 Level 3 Est. Patient 14:07:50 CDT Baltazar Childers MD [facility] CPT-13732 Level 4 Est. Patient 12:26:10 MANAGER GREEN Baltazar Childers MD [facility] CPT-05174 Level 4 Est. Patient 14:45:38 CDT Baltazar Childers MD [facility] CPT-75699 Level 4 New Patient 12:30:48 CDT Baltazar hinton MD [facility] Procedures Code Procedure Name Date Entry Date Standard Desc ription CPT-13407 Venipuncture Draw Fee 12:10:27 MANAGER GREEN CPT-14735 Fluzone Quadrivalent Intramuscular Suspe nsion 0.5 ML 10:49:13 CDT CPT-88520 First Vx Component - Ix admi n via ID IM or jet inj without physician counseling 15:17:19 MANAGER GREEN CPT-64594 Pneumovax 23 15:17:19 MANAGER GREEN CPT-57844 Pneumovax 14:52:45 MANAGER GREEN CPT-32709 Venipuncture Draw Fee 14:06:30 MANAGER GREEN CPT-000 Give Appropriate Flu Vaccine 14:18:34 MANAGER GREEN 2 CPT-71123 Administration single or combination vac cine inc oral 14:46:00 MANAGER GREEN CPT-37272 Influenza split virus > age 3 14:46:00 MANAGER GREEN CPT-OV Office Visit 19:13:16 CDT CPT-04310 Zostavax 18:41:56 CDT CPT-77073 Administration single or combination vac cine inc oral 12:56:39 CDT CPT-92080 Zoster Vaccine (Zostavax) 12:56:39 CDT 2012 CPT-09163 Venipuncture Draw Fee 10:58:57 CDT CPT-75629 Sono pelvis non OB uterus ovaries cervix 17:45:04 CDT CPT-42387 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
--- OUTSIDE RECORDS SUMMARY | 2019-10-27 13:37 | XMS REPORT | Clinical Summary ---
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 Benign neoplasm of colon PERIPHERAL NEUROPATHY [...] of unspecified type of vessel, [place] or graft OTH NONSPC ABN FINDNG RAD&OTH [...] Test twice a day GLUCO SE BLOOD 18910894403 No Longer Active Baltazar Childers MD Active TRUEPLUS LANCETS 33G MISC Test twice a day LANCET S 23078708352 Active Baltazar Childers MD Active TRUEDRAW LANCING DEVICE MISC Test twice a day L ANCET DEVICES 20507871119 Active Baltazar Childers MD Active TRUETRACK TEST STRP Test twice a day GLUCOSE BLOO D 59046464719 Active Baltazar Childers MD Active TRUETRACK BLOOD GLUCOSE W/DEVICE KIT Test twice a day BLOOD GLUCOSE MONITORING SUPPL 47062029230 Active Baltazar Childers MD Activ e HYDROCODONE-ACETAMINOPHEN 7.5-325 MG TABS Take 1 tab every 6-8 hour s PRN HYDROCODONE-ACETAMINOPHEN 23806866964 Active Gato Rae MD Active NORTRIPTYLINE HCL 50 MG CAPS 1 every night for neuropathy 4 NORTRIPTYLINE HCL 94024759170 Active Baltazar Childers MD Acti ve GABAPENTIN 300 MG CAPS 1 three times a day GABAPE NTIN 77929763750 Active Kelly Iraheta LPN Active GABAPENTIN 300 MG CAPS 1 po qd x 2 days, then 1 po BID x 2 d ays, then 1 po TID GABAPENTIN 54232869832 No Longer Active Baltazar silverman MD Active TRAMADOL HCL 50 MG TABS 1 twice a day as needed for pain TRAMADOL HCL 92116774012 Active Baltazar Childers MD Active NAPROXEN 500 MG TABS 1 tablet by mouth twice daily NAPROXEN 49134169062 No Longer Active Baltazar Childers MD Active PROAIR HFA 108 (90 BASE) MCG/ACT AERS 2 puffs four times a d ay as needed ALBUTEROL SULFATE 33908318953 Active Baltazar Childers MD Active DEPO-TESTOSTERONE 200 MG/ML OIL as directed RUFINO TOSTERONE CYPIONATE 86998381856 No Longer Active Baltazar Childers MD Active LIPITOR 20 MG TABS Take one by mouth daily in evening ATORVASTATIN CALCIUM 85137415305 No Longer Active Baltazar Childers MD Activ e CRESTOR 10 MG TABS 1 by mouth every day R OSUVASTATIN CALCIUM 53219234238 No Longer Active Baltazar Childers MD Activ e PHENTERMINE HCL 37.5 MG TABS Take one by mouth daily 2 PHENTERMINE HCL 33680096386 No Longer Active Baltazar Childers MD Activ e ROBAXIN-750 750 MG TABS Take one by mouth daily ME THOCARBAMOL 05237566057 Active Blatazar Childers MD Active TIZANIDINE HCL 4 MG TABS 1 daily as needed for muscle spasm 2011 TIZANIDINE HCL 23753217274 No Longer Active Dawna Salazar RN Active [id number] 50-325-40 MG TABS 1 four time s a day as needed for heacache [id number] 31741315408 Active Baltazar Childers MD Active SUMATRIPTAN SUCCINATE 100 MG TABS 1 tablet by mouth at onset of migraine as needed SUMATRIPTAN SUCCINATE 55590312380 Active Baltazar bynum MD Active LORATADINE 10 MG TABS Take one by mouth daily LORATADINE 46232750163 Active Baltazar Childers MD Active FUROSEMIDE 40 MG TABS Take one by mouth daily FUROSEMIDE 98995932369 Active Baltazar Childers MD Active LISINOPRIL 20 MG TABS Take one by mouth daily at bedtime LISINOPRIL 33841310320 Active Baltazar Childers MD Active OMEPRAZOLE 20 MG CPDR Take one by mouth daily OMEPRAZOLE 68959015256 Active Baltazar Childers MD Active HYDROXYZINE HCL 25 MG TABS Take one by mouth daily HYDROXYZINE HCL 48226921320 Active Dawna Lew Active GLIPIZIDE 10 MG TABS 1 tablet by mouth twice daily GLIPIZIDE 41453916405 Active Baltazar Childers MD Active ALPRAZOLAM 1 MG TABS 1 tablet by mouth daily at bedtime for restles s leg ALPRAZOLAM 11296007195 Active Baltazar Childers MD Active METFORMIN HCL 1000 MG TABS Take one by mouth twice daily METFORMIN HCL 95643174019 Active Baltazar Childers MD Active TIZANIDINE HCL 4 MG TABS 1 daily as needed for muscle spasm 2011 TIZANIDINE HCL 4 MG TABS 520705 TIZANIDINE HCL Inactiv e PHENTERMINE HCL 37.5 MG TABS Take one by mouth daily 2 PHENTERMINE HCL 37.5 MG TABS 871246 PHENTERMINE HCL Inactive CRESTOR 10 MG TABS 1 by mouth every day C RESTOR 10 MG TABS ROSUVASTATIN CALCIUM Inactive LIPITOR 20 MG TABS Take one by mouth daily in evening LIPITOR 20 MG TABS 807750 ATORVASTATIN CALCIUM Inactive DEPO-TESTOSTERONE 200 MG/ML OIL as directed 8 DEPO-TESTOSTERONE 200 MG/ML OIL 535812 TESTOSTERONE CYPIONATE Inactive NAPROXEN 500 MG TABS 1 tablet by mouth twice daily 201 07/27/22 NAPROXEN 500 MG TABS 137615 NAPROXEN Inactive GABAPENTIN 300 MG CAPS 1 po qd x 2 days, then 1 po BID x 2 d ays, then 1 po TID GABAPENTIN 300 MG CAPS 632016 GABAPENTIN Inact amie ONETOUCH ULTRA BLUE STRP Test twice a day ONETOUCH ULTRA BLUE STRP GLUCOSE BLOOD Inactive Immunizations Vaccine Administration Date Value Standard Floyd cription pneumococcal immunization administered Pneumovax 23 [CVX33] pneumococcal polysaccharide vaccine, 23 valent Seasonal influenza vaccine, injectable, containing preservative, for > 3 years old (Afluria, FluLaval, Fluzone, Fluvirin, Fluarix, Agriflu(>= 18 yo)) Fluzone (>3 yrs.) [OVS046] Influenza, seasonal, inject able Seasonal influenza vaccine, injectable, containing preservative, for > 3 years old (Afluria, FluLaval, Fluzone, Fluvirin, Fluarix, Agriflu(>= 18 yo)) Fluzone (>3 yrs.) [LJC301] Influenza, seasonal, inject able Vital Signs Date [...] - Chem istry sodium, serum 140 mmol/L 385-294 8226/05/05 potassium, serum 4.9 mmol/L 3.5-5.2 chloride, serum [...] Panel - Chemistry sodium, serum 139 mmol/L 059-141 5372/01/20 potassium, serum 5.3 mmol/L 3.5-5.2 chloride, serum [...] mg/g mg/g{creat} 0-29 cholesterol, serum 319 mg/dL 586-801 3956/08/21 triglyceride, serum, fasting 546 mg/dL 30-200 HDL cholesterol, serum 39 mg/dL 32-96 LDL cholesterol, serum 167.00 mg/dL 5.00-130.00 hemoglobin A1C, blood, as % of total hemoglobin 7.7 % 4.3-6.0 sodium, serum 138 mmol/L 805-999 7766/08/21 potassium, serum 4.3 mmol/L 3.5-5.2 chloride, serum [...] 0-19 Encounters Code Encounter Date Provider Facility CPT-43752 Level 4 Est. Patient 11:29:55 CDT Baltazar Childers MD [facility] CPT-94317 Level 4 Est. Patient 14:15:19 CDT Baltazar Childers MD [facility] CPT-04469 Level 4 Est. Patient 12:20:13 CDT Baltazar Childers MD [facility] CPT-28250 Level 4 Est. Patient 14:52:45 SANDSTONE INSPECTOR REPAIRER Baltazar Childers MD [facility] CPT-00759 Level 4 Est. Patient 14:18:34 SANDSTONE INSPECTOR REPAIRER Baltazar Childers MD [facility] CPT-08844 Level 4 Est. Patient 15:18:29 CDT Baltazar Childers MD [facility] CPT-86951 Level 3 Est. Patient 12:45:34 CDT Baltazar Childers MD [facility] CPT-38132 Level 3 Est. Patient 10:10:11 CDT Baltazar Childers MD [facility] CPT-21662 Level 3 Est. Patient 14:07:50 CDT Baltazar Childers MD [facility] CPT-34877 Level 4 Est. Patient 12:26:10 SANDSTONE INSPECTOR REPAIRER Baltazar Childers MD [facility] CPT-65236 Level 4 Est. Patient 14:45:38 CDT Baltazar Childers MD [facility] CPT-85026 Level 4 New Patient 12:30:48 CDT Baltazar hinton MD [facility] Procedures Code Procedure Name Date Entry Date Standard Desc ription CPT-55497 Venipuncture Draw Fee 12:10:27 SANDSTONE INSPECTOR REPAIRER CPT-27706 Fluzone Quadrivalent Intramuscular Suspe nsion 0.5 ML 10:49:13 CDT CPT-75494 First Vx Component - Ix admi n via ID IM or jet inj without physician counseling 15:17:19 SANDSTONE INSPECTOR REPAIRER CPT-55092 Pneumovax 23 15:17:19 SANDSTONE INSPECTOR REPAIRER CPT-08996 Pneumovax 14:52:45 SANDSTONE INSPECTOR REPAIRER CPT-47063 Venipuncture Draw Fee 14:06:30 SANDSTONE INSPECTOR REPAIRER CPT-000 Give Appropriate Flu Vaccine 14:18:34 SANDSTONE INSPECTOR REPAIRER 2 CPT-07201 Administration single or combination vac cine inc oral 14:46:00 SANDSTONE INSPECTOR REPAIRER CPT-28989 Influenza split virus > age 3 14:46:00 SANDSTONE INSPECTOR REPAIRER CPT-OV Office Visit 19:13:16 CDT CPT-91264 Zostavax 18:41:56 CDT CPT-98313 Administration single or combination vac cine inc oral 12:56:39 CDT CPT-45853 Zoster Vaccine (Zostavax) 12:56:39 CDT 2012 CPT-22732 Venipuncture Draw Fee 10:58:57 CDT CPT-40447 Sono pelvis non OB uterus ovaries cervix 17:45:04 CDT CPT-81851 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
--- OUTSIDE RECORDS SUMMARY | 2019-10-27 13:38 | XMS REPORT | Clinical Summary ---
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 Benign neoplasm of colon PERIPHERAL NEUROPATHY 356.9 [...] ronary atherosclerosis of unspecified type of vessel, upper [place] or graft OTH NONSPC ABN FINDNG RAD&OTH [...] three times a day 201 12/03/26 GABAPENTIN 97449061093 No Longer Active Baltazar Childers MD Activ e LISINOPRIL 20 MG ORAL TABLET 1 tablet by mouth daily at night 2016 LISINOPRIL 96932163004 Active Baltazar Childers MD Active ZITHROMAX Z-ISAIAS 250 MG ORAL TABLET Take two tablets to day and then 1 tablet daily for 4 days AZITHROMYCIN 57215618747 No Longer A ctive Baltazar Childers MD Active LANTUS SOLOSTAR 100 UNIT/ML SUBCUTANEOUS SOLUTION PEN- INJECTOR 30 units SC daily INSULIN GLARGINE 37380410051 Active Baltazar Childers MD Active AMLODIPINE BESYLATE 5 MG ORAL TABLET 1 tab daily for HTN AMLODIPINE BESYLATE 57835831422 Active Baltazar Childers MD Active SYNTHROID 100 MCG ORAL TABLET 1 tablet by mouth daily LEVOTHYROXINE SODIUM 12145383477 Active Baltazar Childers MD Active GLIPIZIDE 10 MG ORAL TABLET take 2 tablets twice daily GLIPIZIDE 33058377040 Active Baltazar Childers MD Active SUCRALFATE 1 GM ORAL TABLET 1 four times a day to coat the stoma ch SUCRALFATE 31498495700 No Longer Active Baltazar Childers MD Active PEN NEEDLES 31G X 6 MM use 1 daily INSULIN PEN NE EDLE 08831482702 Active KENDALL Juarez Active CELINA POWERSOSTNAKITA 300 UNIT/ML SUBCUTANEOUS SOLUTION PEN- INJECTOR 10 units SC daily INSULIN GLARGINE 96792648331 No Longer Active Rola Godinez RMA Active NAPROXEN SODIUM 220 MG ORAL TABLET 1 three times a day as needed NAPROXEN SODIUM 53183722047 No Longer Active Baltazar Childers MD Active ATORVASTATIN CALCIUM 20 MG ORAL TABLET Take 1 tab daily ATORVASTATIN CALCIUM 48764156245 Active Baltazar Childers MD A ctive FUROSEMIDE 40 MG ORAL TABLET Take one by mouth daily FUROSEMIDE 50586864755 Active Baltazar Childers MD Active LISINOPRIL 20 MG ORAL TABLET Take one by mouth daily at bedtime LISINOPRIL 18483996015 No Longer Active Baltazar Childers MD Active ONETOUCH ULTRA BLUE IN VITRO STRIP Test twice a day 07/11/11 GLUCOSE BLOOD 73489530206 No Longer Active Baltazar Childers MD Acti ve TRUEPLUS LANCETS 33G Test twice a day LANCETS 6391828 3861 Active KENDALL Juarez Active TRUEDRAW LANCING DEVICE Test twice a day LANCET DEVICES 37500352790 Active Baltazar Childers MD Active TRUETRACK TEST IN VITRO STRIP Test twice a day GLUCOSE BLOOD 08644053207 Active KENDALL Juarez Active TRUETRACK BLOOD GLUCOSE w/Device KIT Test twice a day BLOOD GLUCOSE MONITORING SUPPL 81236672817 Active Baltazar Childers MD Activ e HYDROCODONE-ACETAMINOPHEN 7.5-325 MG ORAL TABLET Take 1 tab every 6-8 hours PRN HYDROCODONE-ACETAMINOPHEN 88841204664 Active Baltazar Nickerson MD Active NORTRIPTYLINE HCL 50 MG ORAL CAPSULE 1 every night for neuropathy 2 NORTRIPTYLINE HCL 16035678837 Active Baltazar Childers MD Acti ve GABAPENTIN 300 MG ORAL CAPSULE 1 po qd x 2 days, then 1 po BID x 2 days, then 1 po TID GABAPENTIN 88842886551 No Longer Active Baltazar Childers MD Active TRAMADOL HCL 50 MG ORAL TABLET 1 twice a day as needed for pain 201 07/27/28 TRAMADOL HCL 29755533993 Active Baltazar Childers MD Active NAPROXEN 500 MG ORAL TABLET 1 tablet by mouth twice daily NAPROXEN 21051136579 No Longer Active Baltazar Childers MD Active PROAIR HFA 108 (90 Base) MCG/ACT INHALATION AEROSOL SO LUTION 2 puffs four times a day as needed ALBUTEROL SULFATE 72245849639 Active KENDALL Bowie Active DEPO-TESTOSTERONE 200 MG/ML INTRAMUSCULAR SOLUTION as directed TESTOSTERONE CYPIONATE 27292951967 No Longer Active Baltazar Childers MD Active LIPITOR 20 MG ORAL TABLET Take one by mouth daily in evening ATORVASTATIN CALCIUM 77797778472 No Longer Active Baltazar Childers MD Active CRESTOR 10 MG ORAL TABLET 1 by mouth every day ROSUVASTATIN CALCIUM 62301287792 No Longer Active Baltazar Childers MD Active PHENTERMINE HCL 37.5 MG ORAL TABLET Take one by mouth daily PHENTERMINE HCL 87667680195 No Longer Active Baltazar Childers MD Ac tive ROBAXIN-750 750 MG ORAL TABLET Take one by mouth daily METHOCARBAMOL 68009644284 Active Baltazar Childers MD Active TIZANIDINE HCL 4 MG ORAL TABLET 1 daily as needed for muscle spa sm TIZANIDINE HCL 86687855551 No Longer Active Dawna Salazar RN Active [id number]-[id number]-[id number] 50-325-40 MG ORAL TABLET 1 fo ur times a day as needed for heacache [id number]-[id number] 32160420339 Active Baltazar Childers MD Active SUMATRIPTAN SUCCINATE 100 MG ORAL TABLET 1 tablet by m outh at onset of migraine as needed SUMATRIPTAN SUCCINATE 68174703036 Active KENDALL Restrepo Active LORATADINE 10 MG ORAL TABLET Take one by mouth daily LORATADINE 40375411899 Active Baltazar Childers MD Active OMEPRAZOLE 20 MG ORAL CAPSULE DELAYED RELEASE Take one by mouth jostin ly OMEPRAZOLE 19893094185 Active Baltazar Childers MD Active HYDROXYZINE HCL 25 MG ORAL TABLET Take one by mouth daily HYDROXYZINE HCL 15213476055 Active Baltazar Childers MD Active ALPRAZOLAM 1 MG ORAL TABLET 1 tablet [facility] ALPRAZOLAM 37615913070 Active Baltazar Childers MD Active METFORMIN HCL 1000 MG ORAL TABLET Take one by mouth twice daily METFORMIN HCL 78784925854 Active Baltazar Childers MD Active TIZANIDINE HCL 4 MG ORAL TABLET 1 daily as needed for muscle spa sm TIZANIDINE HCL 4 MG ORAL TABLET 495802 TIZANIDINE HCL Inactive PHENTERMINE HCL 37.5 MG ORAL TABLET Take one by mouth daily PHENTERMINE HCL 37.5 MG ORAL TABLET 334223 PHENTERMINE HCL Inac tive CRESTOR 10 MG ORAL TABLET 1 by mouth every day CRESTOR 10 MG ORAL TABLET 168959 ROSUVASTATIN CALCIUM Inactive LIPITOR 20 MG ORAL TABLET Take one by mouth daily in evening LIPITOR 20 MG ORAL TABLET 081223 ATORVASTATIN CALCIUM Inactive DEPO-TESTOSTERONE 200 MG/ML INTRAMUSCULAR SOLUTION as directed DEPO-TESTOSTERONE 200 MG/ML INTRAMUSCULAR SOLUTION 193305 RUFINO TOSTERONE CYPIONATE Inactive NAPROXEN 500 MG ORAL TABLET 1 tablet by mouth twice daily NAPROXEN 500 MG ORAL TABLET 621575 NAPROXEN Inactive GABAPENTIN 300 MG ORAL CAPSULE 1 po qd x 2 days, then 1 po BID x 2 days, then 1 po TID GABAPENTIN 300 MG ORAL CAPSULE 378237 GABAP ENTIN Inactive ONETOUCH ULTRA BLUE IN VITRO STRIP Test twice a day 07/11/11 ONETOUCH ULTRA BLUE IN VITRO STRIP GLUCOSE BLOOD Inact amie NAPROXEN SODIUM 220 MG ORAL TABLET 1 three times a day as needed NAPROXEN SODIUM 220 MG ORAL TABLET 426570 NAPROXEN SODI UM Inactive TOUJEO SOLOSTAR 300 UNIT/ML SUBCUTANEOUS SOLUTION PEN- INJECTOR 10 units SC daily TOUJEO SOLOSTAR 300 UNIT/ML SUBCUTANEOUS SOLUTION PEN-INJECTOR INSULIN GLARGINE Inactive SUCRALFATE 1 GM ORAL TABLET 1 four times a day to coat the stoma ch SUCRALFATE 1 GM ORAL TABLET 457702 SUCRALFATE Inac tive GABAPENTIN 300 MG ORAL CAPSULE 1 three times a day 201 12/03/26 GABAPENTIN 300 MG ORAL CAPSULE 010514 GABAPENTIN Inactive ZITHROMAX Z-ISAIAS 250 MG ORAL TABLET Take two tablets to day and then 1 tablet daily for 4 days ZITHROMAX Z-ISAIAS 250 MG ORAL TAB LET 335207 AZITHROMYCIN Inactive Immunizations Vaccine Administration Date Value Standard Floyd cription pneumococcal immunization administered Pneumovax 23 [CVX33] pneumococcal polysaccharide vaccine, 23 valent Seasonal influenza vaccine, injectable, containing preservative, for > 3 years old (Afluria, FluLaval, Fluzone, Fluvirin, Fluarix, Agriflu(>= 18 yo)) Fluzone (>3 yrs.) [[id number]] Influenza, seasonal, inject able Seasonal influenza vaccine, injectable, containing preservative, for > 3 years old (Afluria, FluLaval, Fluzone, Fluvirin, Fluarix, Agriflu(>= 18 yo)) Fluzone (>3 yrs.) [[id number]] Influenza, seasonal, inject able Vital Signs Date [...] - Chem istry sodium, serum 139 mmol/L 007-662 6754/10/03 potassium, serum 4.7 mmol/L 3.5-5.2 chloride, serum 98 mmol/L 98-107 carbon dioxide, venous blood 28.7 mmol/L 21.0-32 .0 blood glucose 218 mg/dL 65-110 calcium, serum 9.8 mg/dL 8.5-10.1 urea nitrogen, blood 19 mg/dL 7-18 creatinine, serum 1.68 mg/dL 0.60-1.30 Lab Report: Basic Metabolic Panel, HGBA1 C - Chemistry sodium, serum 143 mmol/L 370-642 8818/06/19 potassium, serum 5.9 mmol/L 3.5-5.2 chloride, serum 105 mmol/L 98-107 carbon dioxide, venous blood 30.2 mmol/L 21.0-32 .0 blood glucose 189 mg/dL 65-110 calcium, serum 9.7 mg/dL 8.5-10.1 urea nitrogen, blood 37 mg/dL 7-18 creatinine, serum 2.11 mg/dL 0.55-1.30 hemoglobin A1C, blood, as % of total hemoglobin 8.2 % 4.3-6.0 Lab Report: CBC, Renal Panel - Chemistry sodium, serum 142 mmol/L 559-553 5209/08/11 potassium, serum 4.8 mmol/L 3.5-5.2 chloride, serum [...] (L) - Chemistry cholesterol, serum 209 mg/dL 336-811 4412/12/27 triglyceride, serum, fasting 329 mg/dL 30-200 HDL cholesterol, serum 56 mg/dL 32-60 LDL cholesterol, serum 87 mg/dL 0-130 TSH 3.60 m[iU]/mL 0.36-3.74 Encounters Code Encounter Date Provider Facility CPT-47866 Level 4 Est. Patient 17:05:37 CDT Baltazar Childers MD [facility] CPT-30497 Level 4 Est. Patient 16:21:19 FINANCE CONTROLLER Baltazar Childers MD [facility] CPT-76225 Level 4 Est. Patient 12:25:11 CDT Baltazar Childers MD [facility] CPT-38883 Level 4 Est. Patient 14:22:31 CDT Baltazar Childers MD [facility]-37507 Level 4 Est. Patient 15:44:38 CDT Shonna Parker APRN [facility]-58055 Level 4 Est. Patient 11:34:17 CDT Baltazar Childers MD [facility]-21480 Level 3 Est. Patient 16:40:40 CDT Baltazar Childers MD [facility]-76207 Level 4 Est. Patient 10:41:24 CDT Baltazar Childers MD [facility]-91964 Level 4 Est. Patient 16:01:48 CDT Baltazar Childers MD [facility]-35340 Level 4 Est. Patient 16:54:07 FINANCE CONTROLLER Baltazar Childers MD [facility]-52783 Level 4 Est. Patient 15:42:12 CDT Baltazar Childers MD [facility] CPT-27010 Level 4 Est. Patient 11:29:55 CDT Baltazar Childers MD [facility] CPT-16425 Level 4 Est. Patient 14:15:19 CDT Baltazar Childers MD [facility]-44631 Level 4 Est. Patient 12:20:13 CDT Baltazar Childers MD [facility]-16510 Level 4 Est. Patient 14:52:45 FINANCE CONTROLLER Baltazar Childers MD [facility] CPT-77328 Level 4 Est. Patient 14:18:34 FINANCE CONTROLLER Baltazar Childers MD [facility] CPT-22656 Level 4 Est. Patient 15:18:29 CDT Baltazar Childers MD [facility]-98455 Level 3 Est. Patient 12:45:34 CDT Baltazar Childers MD [facility]-01695 Level 3 Est. Patient 10:10:11 CDT Baltazar Childers MD [facility] CPT-43190 Level 3 Est. Patient 14:07:50 CDT Baltazar Childers MD [facility] CPT-34250 Level 4 Est. Patient 12:26:10 FINANCE CONTROLLER Baltazar Childers MD [facility] CPT-44296 Level 4 Est. Patient 14:45:38 CDT Baltazar Childers MD [facility] CPT-39928 Level 4 New Patient 12:30:48 CDT Baltazar hinton MD [facility] Procedures Code Procedure Name Date Entry Date Standard Desc ription CPT-29522 First Vx - Ix admin via ID I M or jet injects without counseling by physician 13:08:59 CDT CPT-93783 Fluzone Quadrivalent Intramuscular Suspe nsion 0.5 ML 13:08:59 CDT CPT-99986 Venipuncture Draw Fee 12:04:12 CDT CPT-39417 Lipid - LAB USE ONLY 17:39:15 FINANCE CONTROLLER 9 CPT-02766 HGBA1C - LAB USE ONLY 17:39:15 FINANCE CONTROLLER CPT-45963 CMP - LAB USE ONLY 17:39:14 FINANCE CONTROLLER CPT-19668 Venipuncture Draw Fee 17:39:14 FINANCE CONTROLLER CPT-12690 First Vx - Ix admin via ID I M or jet injects without counseling by physician 16:55:17 FINANCE CONTROLLER CPT-79095 Fluzone Quadrivalent Intramuscular Suspe nsion 0.5 ML 16:55:17 FINANCE CONTROLLER CPT-50004 Renal Panel - LAB USE ONLY 17:39:20 CDT 201 10/31/07 CPT-46263 CBC - LAB USE ONLY 17:39:20 CDT CPT-80108 Venipuncture Draw Fee 17:39:20 CDT CPT-41067 Venipuncture Draw Fee 14:33:30 CDT CPT-66377 Renal Panel - LAB USE ONLY 14:33:30 CDT 201 10/31/07 CPT-01570 CBC - LAB USE ONLY 14:33:29 CDT CPT-74735 Venipuncture Draw Fee 14:50:21 FINANCE CONTROLLER CPT-57904 Immunization Single Admin 17:35:35 CDT 2014 CPT-18533 Fluzone Quadrivalent preservative free ( >=3yrs.) 17:35:35 CDT CPT-84181 Venipuncture Draw Fee 12:10:27 FINANCE CONTROLLER CPT-34336 Fluzone Quadrivalent Intramuscular Suspe nsion 0.5 ML 10:49:13 CDT CPT-91932 First Vx Component - Ix admi n via ID IM or jet inj without physician counseling 15:17:19 FINANCE CONTROLLER CPT-00270 Pneumovax 23 15:17:19 FINANCE CONTROLLER CPT-74505 Pneumovax 14:52:45 FINANCE CONTROLLER CPT-71919 Venipuncture Draw Fee 14:06:30 FINANCE CONTROLLER CPT-000 Give Appropriate Flu Vaccine 14:18:34 FINANCE CONTROLLER 2 CPT-77307 Administration single or combination vac cine inc oral 14:46:00 FINANCE CONTROLLER CPT-73823 Influenza split virus > age 3 14:46:00 FINANCE CONTROLLER CPT-OV Office Visit 19:13:16 CDT CPT-13479 Zostavax 18:41:56 CDT CPT-25169 Administration single or combination vac cine inc oral 12:56:39 CDT CPT-91619 Zoster Vaccine (Zostavax) 12:56:39 CDT 2012 CPT-55363 Venipuncture Draw Fee 10:58:57 CDT CPT-20778 Sono pelvis non OB uterus ovaries cervix 17:45:04 CDT CPT-78553 Sono retroperitoneal complete kidneys an d bladder 17:14:36 CDT CPT-OV Office Visit 14:59:38 FINANCE CONTROLLER CPT-J1070 Depo Testosterone 100 mg 14:50:13 CDT 03/05 CPT-01757 Abx/Therapy Injection 14:50:13 CDT CPT-07759 Administration single or combination vac cine inc oral 14:34:43 CDT CPT-68021 Influenza split virus > age 3 14:34:43 CDT CPT-J1070 Depo Testosterone 100 mg 17:37:13 CDT 01/11 CPT-40589 Abx/Therapy Injection 17:37:13 CDT CPT-70400 Venipuncture Draw Fee 16:30:13 CDT CPT-72599 Venipuncture Draw Fee 16:29:43 CDT CPT-J1070 Depo Testosterone 100 mg 14:45:38 CDT 01/11
--- OUTSIDE RECORDS SUMMARY | 2019-10-27 13:38 | XMS REPORT | Clinical Summary ---
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 Benign neoplasm of colon PERIPHERAL NEUROPATHY [...] ronary atherosclerosis of unspecified type of vessel, [place] or graft OTH NONSPC ABN FINDNG RAD&OTH [...] a day as needed 2 NAPROXEN SODIUM 53867643373 No Longer Active Baltazar Childers MD Active ATORVASTATIN CALCIUM 20 MG ORAL TABS Take 1 tab daily ATORVASTATIN CALCIUM 85662368824 Active Kelly Iraheta LPN Active FUROSEMIDE 40 MG TABS Take one by mouth daily FUROSEMIDE 07128016138 Active Blatazar Childers MD Active LISINOPRIL 20 MG TABS Take one by mouth daily at bedtime LISINOPRIL 92154356999 Active KENDALL Juarez Active ONETOUCH ULTRA BLUE STRP Test twice a day GLUCO SE BLOOD 97531270638 No Longer Active Baltazar Childers MD Active TRUEPLUS LANCETS 33G MISC Test twice a day LANCET S 47527819961 Active KENDALL Juarez Active TRUEDRAW LANCING DEVICE MISC Test twice a day L ANCET DEVICES 58601443227 Active Baltazar Childers MD Active TRUETRACK TEST STRP Test twice a day GLUCOSE BLOO D 04167740054 Active Baltazar Childers MD Active TRUETRACK BLOOD GLUCOSE W/DEVICE KIT Test twice a day BLOOD GLUCOSE MONITORING SUPPL 76106825280 Active Baltazar Childers MD Activ e HYDROCODONE-ACETAMINOPHEN 7.5-325 MG TABS Take 1 tab every 6-8 hour s PRN HYDROCODONE-ACETAMINOPHEN 52771692188 Active Baltazar Childers MD Active NORTRIPTYLINE HCL 50 MG CAPS 1 every night for neuropathy 4 NORTRIPTYLINE HCL 38081996261 Active Baltazar Childers MD Acti ve GABAPENTIN 300 MG CAPS 1 three times a day GABAPE NTIN 18777385405 Active KENDALL Juarez Active GABAPENTIN 300 MG CAPS 1 po qd x 2 days, then 1 po BID x 2 d ays, then 1 po TID GABAPENTIN 75674744247 No Longer Active Baltazar silverman MD Active TRAMADOL HCL 50 MG TABS 1 twice a day as needed for pain TRAMADOL HCL 88024023757 Active Baltazar Childers MD Active NAPROXEN 500 MG TABS 1 tablet by mouth twice daily NAPROXEN 56598477174 No Longer Active Baltazar Childers MD Active PROAIR HFA 108 (90 BASE) MCG/ACT AERS 2 puffs four times a d ay as needed ALBUTEROL SULFATE 71302536523 Active KENDALL Juarez Active DEPO-TESTOSTERONE 200 MG/ML OIL as directed RUFINO TOSTERONE CYPIONATE 48632732207 No Longer Active Baltazar Childers MD Active LIPITOR 20 MG TABS Take one by mouth daily in evening ATORVASTATIN CALCIUM 83187868878 No Longer Active Baltazar Childers MD Activ e CRESTOR 10 MG TABS 1 by mouth every day R OSUVASTATIN CALCIUM 92835862416 No Longer Active Baltazar Childers MD Activ e PHENTERMINE HCL 37.5 MG TABS Take one by mouth daily 2 PHENTERMINE HCL 30803268751 No Longer Active Baltazar Childers MD Activ e ROBAXIN-750 750 MG TABS Take one by mouth daily ME THOCARBAMOL 86540187396 Active Baltazar Childers MD Active TIZANIDINE HCL 4 MG TABS 1 daily as needed for muscle spasm 2011 TIZANIDINE HCL 48432996545 No Longer Active Dawna Salazar RN Active GZQLLWIVCC-KGNV-BAAZGZSJ 50-325-40 MG TABS 1 four time s a day as needed for heacache LLBAATKVRC-DEKX-IASNRULW 03102049011 Active Baltazar Childers MD Active SUMATRIPTAN SUCCINATE 100 MG TABS 1 tablet by mouth at onset of migraine as needed SUMATRIPTAN SUCCINATE 66730257346 Active KENDALL Juarez Active LORATADINE 10 MG TABS Take one by mouth daily LORATADINE 22848126505 Active Baltazar Childers MD Active OMEPRAZOLE 20 MG CPDR Take one by mouth daily OMEPRAZOLE 51936076411 Active Baltazar Childers MD Active HYDROXYZINE HCL 25 MG TABS Take one by mouth daily HYDROXYZINE HCL 11929531354 Active Baltazar Childers MD Active GLIPIZIDE 10 MG TABS 1 tablet by mouth twice daily GLIPIZIDE 64646026252 Active Bella Suarez APRN Active ALPRAZOLAM 1 MG TABS 1 tablet by mouth daily at bedtime for restles s leg ALPRAZOLAM 23698657858 Active Baltazar Childers MD Active METFORMIN HCL 1000 MG TABS Take one by mouth twice daily METFORMIN HCL 35145947727 Active Baltazar Childers MD Active NAPROXEN 500 MG TABS 1 tablet by mouth twice daily 201 07/27/22 NAPROXEN 500 MG TABS 557667 NAPROXEN Inactive PHENTERMINE HCL 37.5 MG TABS Take one by mouth daily 2 PHENTERMINE HCL 37.5 MG TABS 285177 PHENTERMINE HCL Inactive NAPROXEN SODIUM 220 MG ORAL TABS 1 three times a day as needed 2 NAPROXEN SODIUM 220 MG ORAL TABS 557779 NAPROXEN SODIUM Inactive TIZANIDINE HCL 4 MG TABS 1 daily as needed for muscle spasm 2011 TIZANIDINE HCL 4 MG TABS 740409 TIZANIDINE HCL Inactiv e GABAPENTIN 300 MG CAPS 1 po qd x 2 days, then 1 po BID x 2 d ays, then 1 po TID GABAPENTIN 300 MG CAPS 039158 GABAPENTIN Inact amie LIPITOR 20 MG TABS Take one by mouth daily in evening LIPITOR 20 MG TABS 714334 ATORVASTATIN CALCIUM Inactive ONETOUCH ULTRA BLUE STRP Test twice a day ONETOUCH ULTRA BLUE STRP GLUCOSE BLOOD Inactive CRESTOR 10 MG TABS 1 by mouth every day C RESTOR 10 MG TABS ROSUVASTATIN CALCIUM Inactive DEPO-TESTOSTERONE 200 MG/ML OIL as directed 8 DEPO-TESTOSTERONE 200 MG/ML OIL 127179 TESTOSTERONE CYPIONATE Inactive Immunizations Vaccine Administration Date Value Standard Floyd cription pneumococcal immunization administered Pneumovax 23 [CVX33] pneumococcal polysaccharide vaccine, 23 valent Seasonal influenza vaccine, injectable, containing preservative, for > 3 years old (Afluria, FluLaval, Fluzone, Fluvirin, Fluarix, Agriflu(>= 18 yo)) Fluzone (>3 yrs.) [[id number]] Influenza, seasonal, inject able Seasonal influenza vaccine, injectable, containing preservative, for > 3 years old (Afluria, FluLaval, Fluzone, Fluvirin, Fluarix, Agriflu(>= 18 yo)) Fluzone (>3 yrs.) [XVP852] Influenza, seasonal, inject able Vital Signs Date [...] 7.9 % 4.3-6.0 sodium, serum 139 mmol/L 651-804 5222/02/04 potassium, serum 5.4 mmol/L 3.5-5.2 chloride, serum [...] - Chemistry chloride, serum 98 mmol/L 98-107 blood glucose 136 mg/dL 65-110 urea nitrogen, blood 18 mg/dL 7-18 creatinine, serum 1.71 mg/dL 0.55-1.30 alanine aminotransferase (SGPT), serum 71 U/L 12-78 aspartate aminotransferase (SGOT), serum 34 U/L 15-37 calcium, serum 9.4 mg/dL 8.5-10.1 bilirubin, serum, total 0.40 mg/dL 0.00-1.00 cholesterol, serum 405 mg/dL 113-491 0099/11/23 triglyceride, serum, fasting 709 mg/dL 30-200 HDL cholesterol, serum 53 mg/dL 32-96 LDL cholesterol, serum 210 mg/dL 0-130 sodium, serum 138 mmol/L 706-915 8882/11/23 carbon dioxide, venous blood 32.4 mmol/L 21.0-32 .0 potassium, serum 5.7 mmol/L 3.5-5.2 Lab Report: HGBA1C - Chemistry hemoglobin A1C, blood, as % of total hemoglobin 7.7 % 4.3-6.0 hemoglobin A1C, blood, as % of total hemoglobin 7.3 % 4.3-6.0 Lab Report: MICROALB/CREAT W/RATIO - Maryam jo albumin/creatinine ratio, urine < 30 mg/g mg/g{creat} 0-2 9 Lab Report: MICROALB/CREAT W/RATIO - Lab microalbumin, urine 10 0-19 Office Visit: Medication refill - Chemis try cholesterol, target level 200 mg/dL LDL target level 70 mg/dL HDL cholesterol, serum, target level 40 mg/dL triglyceride, target level 150 mg/dL Encounters Code Encounter Date Provider Facility CPT-86371 Level 4 Est. Patient 16:54:07 VISITING TEACHER Baltazar Childers MD [facility] CPT-34908 Level 4 Est. Patient 15:42:12 CDT Baltazar Childers MD [facility] CPT-34430 Level 4 Est. Patient 11:29:55 CDT Baltazar Childers MD [facility] CPT-63404 Level 4 Est. Patient 14:15:19 CDT Baltazar Childers MD [facility] CPT-93653 Level 4 Est. Patient 12:20:13 CDT Baltazar Childers MD [facility] CPT-40374 Level 4 Est. Patient 14:52:45 VISITING TEACHER Baltazar Childers MD [facility] CPT-79288 Level 4 Est. Patient 14:18:34 VISITING TEACHER Baltazar Childers MD [facility] CPT-64026 Level 4 Est. Patient 15:18:29 CDT Baltazar Childers MD [facility] CPT-35115 Level 3 Est. Patient 12:45:34 CDT Baltazar Childers MD [facility] CPT-11674 Level 3 Est. Patient 10:10:11 CDT Baltazar Childers MD [facility] CPT-89457 Level 3 Est. Patient 14:07:50 CDT Baltazar Childers MD [facility] CPT-06288 Level 4 Est. Patient 12:26:10 VISITING TEACHER Baltazar Childers MD [facility] CPT-37302 Level 4 Est. Patient 14:45:38 CDT Baltazar Childers MD [facility] CPT-42222 Level 4 New Patient 12:30:48 CDT Baltazar hinton MD [facility] Procedures Code Procedure Name Date Entry Date Standard Desc ription CPT-16886 Venipuncture Draw Fee 14:50:21 VISITING TEACHER CPT-66167 Immunization Single Admin 17:35:35 CDT 2014 CPT-99700 Fluzone Quadrivalent preservative free ( >=3yrs.) 17:35:35 CDT CPT-16067 Venipuncture Draw Fee 12:10:27 VISITING TEACHER CPT-58532 Fluzone Quadrivalent Intramuscular Suspe nsion 0.5 ML 10:49:13 CDT CPT-30153 First Vx Component - Ix admi n via ID IM or jet inj without physician counseling 15:17:19 VISITING TEACHER CPT-23087 Pneumovax 23 15:17:19 VISITING TEACHER CPT-41003 Pneumovax 14:52:45 VISITING TEACHER CPT-53647 Venipuncture Draw Fee 14:06:30 VISITING TEACHER CPT-000 Give Appropriate Flu Vaccine 14:18:34 VISITING TEACHER 2 CPT-20721 Administration single or combination vac cine inc oral 14:46:00 VISITING TEACHER CPT-18516 Influenza split virus > age 3 14:46:00 VISITING TEACHER CPT-OV Office Visit 19:13:16 CDT CPT-98029 Zostavax 18:41:56 CDT CPT-67183 Administration single or combination vac cine inc oral 12:56:39 CDT CPT-65315 Zoster Vaccine (Zostavax) 12:56:39 CDT 2012 CPT-86835 Venipuncture Draw Fee 10:58:57 CDT CPT-78357 Sono pelvis non OB uterus ovaries cervix 17:45:04 CDT CPT-13499 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
--- OUTSIDE RECORDS SUMMARY | 2019-10-27 13:38 | XMS REPORT | Clinical Summary ---
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 Benign neoplasm of colon PERIPHERAL NEUROPATHY [...] MISC Test twice a day LANCET S 47116926812 Active Baltazar Childers MD Active TRUEDRAW LANCING DEVICE MISC Test twice a day L ANCET DEVICES 44592643126 Active Baltazar Childers MD Active TRUETRACK TEST STRP Test twice a day GLUCOSE BLOO D 77475487340 Active Baltazar Childers MD Active TRUETRACK BLOOD GLUCOSE W/DEVICE KIT Test twice a day BLOOD GLUCOSE MONITORING SUPPL 29540937702 Active Baltazar Childers MD Activ e HYDROCODONE-ACETAMINOPHEN 7.5-325 MG TABS Take 1 tab every 6-8 hour s PRN HYDROCODONE-ACETAMINOPHEN 59781928825 Active Baltazar Childers MD Active NORTRIPTYLINE HCL 50 MG CAPS 1 every night for neuropathy 4 NORTRIPTYLINE HCL 92564582099 Active Baltazar Childers MD Acti ve GABAPENTIN 300 MG CAPS 1 three times a day GABAPE NTIN 77190076067 Active Baltazar Childers MD Active GABAPENTIN 300 MG CAPS 1 po qd x 2 days, then 1 po BID x 2 d ays, then 1 po TID GABAPENTIN 54929453635 No Longer Active Baltazar silverman MD Active TRAMADOL HCL 50 MG TABS 1 twice a day as needed for pain TRAMADOL HCL 97690022063 Active Baltazar Childers MD Active NAPROXEN 500 MG TABS 1 tablet by mouth twice daily NAPROXEN 92329494128 No Longer Active Baltazar Childers MD Active PROAIR HFA 108 (90 BASE) MCG/ACT AERS 2 puffs four times a d ay as needed ALBUTEROL SULFATE 83273341842 Active Baltazar Childers MD Active DEPO-TESTOSTERONE 200 MG/ML OIL as directed RUFINO TOSTERONE CYPIONATE 44488494286 No Longer Active Baltazar Childers MD Active LIPITOR 20 MG TABS Take one by mouth daily in evening ATORVASTATIN CALCIUM 51623247862 No Longer Active Baltazar Childers MD Activ e CRESTOR 10 MG TABS 1 by mouth every day R OSUVASTATIN CALCIUM 09793932093 No Longer Active Baltazar Childers MD Activ e PHENTERMINE HCL 37.5 MG TABS Take one by mouth daily 2 PHENTERMINE HCL 75605950717 No Longer Active Baltazar Childers MD Activ e ROBAXIN-750 750 MG TABS Take one by mouth daily ME THOCARBAMOL 06404515188 Active Baltazar Childers MD Active TIZANIDINE HCL 4 MG TABS 1 daily as needed for muscle spasm 2011 TIZANIDINE HCL 88256100369 No Longer Active Dawna Salazar RN Active Avontrust GroupUCH ULTRA BLUE STRP Test twice a day GLUCO SE BLOOD 26486407653 Active Baltazar Childers MD Active [id number]-[id number] 50-325-40 MG TABS 1 four time s a day as needed for heacache [id number] 68426243677 Active Baltazar Childers MD Active SUMATRIPTAN SUCCINATE 100 MG TABS 1 tablet by mouth at onset of migraine as needed SUMATRIPTAN SUCCINATE 19391878891 Active Baltazar bynum MD Active LORATADINE 10 MG TABS Take one by mouth daily LORATADINE 93559043800 Active Baltazar Childers MD Active FUROSEMIDE 40 MG TABS Take one by mouth daily FUROSEMIDE 69241965330 Active Baltazar Childers MD Active LISINOPRIL 20 MG TABS Take one by mouth daily at bedtime LISINOPRIL 91157574621 Active Baltazar Childers MD Active OMEPRAZOLE 20 MG CPDR Take one by mouth daily OMEPRAZOLE 39226722049 Active Baltazar Childers MD Active HYDROXYZINE HCL 25 MG TABS Take one by mouth daily HYDROXYZINE HCL 65316198370 Active Baltazar Childers MD Active GLIPIZIDE 10 MG TABS 1 tablet by mouth twice daily GLIPIZIDE 12382499116 Active Baltazar Childers MD Active ALPRAZOLAM 1 MG TABS 1 tablet by mouth daily at bedtime for restles s leg ALPRAZOLAM 59902815506 Active Baltazar Childers MD Active METFORMIN HCL 1000 MG TABS Take one by mouth twice daily METFORMIN HCL 92482568511 Active Baltazar Childers MD Active TIZANIDINE HCL 4 MG TABS 1 daily as needed for muscle spasm 2011 TIZANIDINE HCL 4 MG TABS 172766 TIZANIDINE HCL Inactiv e PHENTERMINE HCL 37.5 MG TABS Take one by mouth daily 2 PHENTERMINE HCL 37.5 MG TABS 580508 PHENTERMINE HCL Inactive CRESTOR 10 MG TABS 1 by mouth every day C RESTOR 10 MG TABS ROSUVASTATIN CALCIUM Inactive LIPITOR 20 MG TABS Take one by mouth daily in evening LIPITOR 20 MG TABS 636087 ATORVASTATIN CALCIUM Inactive DEPO-TESTOSTERONE 200 MG/ML OIL as directed 8 DEPO-TESTOSTERONE 200 MG/ML OIL 879963 TESTOSTERONE CYPIONATE Inactive NAPROXEN 500 MG TABS 1 tablet by mouth twice daily 201 07/27/22 NAPROXEN 500 MG TABS 905674 NAPROXEN Inactive GABAPENTIN 300 MG CAPS 1 po qd x 2 days, then 1 po BID x 2 d ays, then 1 po TID GABAPENTIN 300 MG CAPS 224063 GABAPENTIN Inact amie Immunizations Vaccine Administration Date Value Standard Floyd cription pneumococcal immunization administered Pneumovax 23 [CVX33] pneumococcal polysaccharide vaccine, 23 valent Seasonal influenza vaccine, injectable, containing preservative, for > 3 years old (Afluria, FluLaval, Fluzone, Fluvirin, Fluarix, Agriflu(>= 18 yo)) Fluzone (>3 yrs.) [[id number]] Influenza, seasonal, inject able Seasonal influenza vaccine, injectable, containing preservative, for > 3 years old (Afluria, FluLaval, Fluzone, Fluvirin, Fluarix, Agriflu(>= 18 yo)) Fluzone (>3 yrs.) [[id number]] Influenza, seasonal, inject able Vital Signs Date [...] - Chem istry carbon dioxide, venous blood 34.3 mmol/L 21.0-32 .0 blood glucose 132 mg/dL 65-110 calcium, serum 10.1 mg/dL 8.5-10.1 urea nitrogen, blood 23 mg/dL 7-18 creatinine, serum 2.00 mg/dL 0.60-1.30 sodium, serum 140 mmol/L 129-497 4465/05/05 potassium, serum 4.9 mmol/L 3.5-5.2 chloride, serum 99 mmol/L 98-107 Lab Report: CBC - Hematology mean corpuscular [...] Panel - Chemistry sodium, serum 139 mmol/L 560-758 9003/01/20 potassium, serum 5.3 mmol/L 3.5-5.2 chloride, serum [...] 11 .6-14.8 platelet count 262 10^3/MM^3 10*3/mm3 349-616 6369/01/20 leukocyte count, blood 4.7 10^3/MM^3 10*3/mm3 4.6-10.2 hemoglobin, blood 11.9 g/dL 12.0-16.0 erythrocyte (RBC) count 3.70 10^6/MM^3 10*6/mm3 4.04-5.4 8 Lab Report: HGBA1C - Chemistry hemoglobin A1C, blood, as % of total hemoglobin 7.3 % 4.3-6.0 Lab Report: MICROALBUMIN, Lipid Panel, H GBA1C, Comp. Metabolic Panel - Chemistry calcium, serum 9.8 mg/dL 8.5-10.1 bilirubin, serum, total 0.20 mg/dL 0.00-1.00 alanine aminotransferase (SGPT), serum 54 U/L 12-78 aspartate aminotransferase (SGOT), serum 29 U/L 15-37 alkaline phosphatase, serum 55 U/L 50-136 albumin/creatinine ratio, urine 30 - 300 mg/g mg/g{creat} 0-29 cholesterol, serum 319 mg/dL 451-843 6285/08/21 triglyceride, serum, fasting 546 mg/dL 30-200 HDL cholesterol, serum 39 mg/dL 32-96 LDL cholesterol, serum 167.00 mg/dL 5.00-130.00 hemoglobin A1C, blood, as % of total hemoglobin 7.7 % 4.3-6.0 sodium, serum 138 mmol/L 007-427 8855/08/21 potassium, serum 4.3 mmol/L 3.5-5.2 chloride, serum 100 mmol/L 98-107 carbon dioxide, venous blood 33.2 mmol/L 21.0-32 .0 blood glucose 138 mg/dL 65-110 urea nitrogen, blood 13 mg/dL 7-18 creatinine, serum 1.40 mg/dL 0.60-1.30 Lab Report: MICROALBUMIN, Lipid Panel, H GBA1C, Comp. Metabolic Panel - Lab microalbumin, urine 10 0-19 Encounters Code Encounter Date Provider Facility CPT-41029 Level 4 Est. Patient 11:29:55 CDT Baltazar Childers MD [facility] CPT-71563 Level 4 Est. Patient 14:15:19 CDT Baltazar Childers MD [facility] CPT-29993 Level 4 Est. Patient 12:20:13 CDT Baltazar Childers MD [facility] CPT-51233 Level 4 Est. Patient 14:52:45 UNDERCOAT SPRAYER Baltazar Childers MD [facility] CPT-90474 Level 4 Est. Patient 14:18:34 UNDERCOAT SPRAYER Baltazar Childers MD [facility] CPT-98128 Level 4 Est. Patient 15:18:29 CDT Baltazar Childers MD [facility] CPT-83468 Level 3 Est. Patient 12:45:34 CDT Baltazar Childers MD [facility] CPT-98085 Level 3 Est. Patient 10:10:11 CDT Baltazar Childers MD [facility] CPT-93914 Level 3 Est. Patient 14:07:50 CDT Baltazar Childers MD [facility] CPT-19693 Level 4 Est. Patient 12:26:10 UNDERCOAT SPRAYER Baltazar Childers MD [facility] CPT-44152 Level 4 Est. Patient 14:45:38 CDT Baltazar Childers MD [facility] CPT-39876 Level 4 New Patient 12:30:48 CDT Baltazar hinton MD [facility] Procedures Code Procedure Name Date Entry Date Standard Desc ription CPT-85767 Venipuncture Draw Fee 12:10:27 UNDERCOAT SPRAYER CPT-89331 Fluzone Quadrivalent Intramuscular Suspe nsion 0.5 ML 10:49:13 CDT CPT-31095 First Vx Component - Ix admi n via ID IM or jet inj without physician counseling 15:17:19 UNDERCOAT SPRAYER CPT-72986 Pneumovax 15:17:19 UNDERCOAT SPRAYER CPT-26791 Pneumovax 14:52:45 UNDERCOAT SPRAYER CPT-52320 Venipuncture Draw Fee 14:06:30 UNDERCOAT SPRAYER CPT-000 Give Appropriate Flu Vaccine 14:18:34 UNDERCOAT SPRAYER 2 CPT-01839 Administration single or combination vac cine inc oral 14:46:00 UNDERCOAT SPRAYER CPT-67154 Influenza split virus > age 3 14:46:00 UNDERCOAT SPRAYER CPT-OV Office Visit 19:13:16 CDT CPT-51445 Zostavax 18:41:56 CDT CPT-63432 Administration single or combination vac cine inc oral 12:56:39 CDT CPT-76478 Zoster Vaccine (Zostavax) 12:56:39 CDT 2012 CPT-38798 Venipuncture Draw Fee 10:58:57 CDT CPT-61907 Sono pelvis non OB uterus ovaries cervix 17:45:04 CDT CPT-80694 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
--- OUTSIDE RECORDS SUMMARY | 2019-10-27 13:38 | XMS REPORT | Clinical Summary ---
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 Benign neoplasm of colon PERIPHERAL NEUROPATHY [...] ronary atherosclerosis of unspecified type of vessel, unga or graft OTH NONSPC ABN FINDNG RAD&OTH [...] a day as needed 2 NAPROXEN SODIUM 42282825686 No Longer Active Baltazar Childers MD Active ATORVASTATIN CALCIUM 20 MG ORAL TABS Take 1 tab daily ATORVASTATIN CALCIUM 11106370273 Active Kelly Iraheta LPN Active FUROSEMIDE 40 MG TABS Take one by mouth daily FUROSEMIDE 31039383279 Active Baltazar Childers MD Active LISINOPRIL 20 MG TABS Take one by mouth daily at bedtime LISINOPRIL 01111623624 Active KENDALL Juarez Active ONETOUCH ULTRA BLUE STRP Test twice a day GLUCO SE BLOOD 97724720728 No Longer Active Baltazar Childers MD Active TRUEPLUS LANCETS 33G MISC Test twice a day LANCET S 55031139676 Active KENDALL Juarez Active TRUEDRAW LANCING DEVICE MISC Test twice a day L ANCET DEVICES 63625521512 Active Baltazar Childers MD Active TRUETRACK TEST STRP Test twice a day GLUCOSE BLOO D 19084457361 Active Baltazar Childers MD Active TRUETRACK BLOOD GLUCOSE W/DEVICE KIT Test twice a day BLOOD GLUCOSE MONITORING SUPPL 02209523260 Active Baltazar Childers MD Activ e HYDROCODONE-ACETAMINOPHEN 7.5-325 MG TABS Take 1 tab every 6-8 hour s PRN HYDROCODONE-ACETAMINOPHEN 51783590508 Active Baltazar Childers MD Active NORTRIPTYLINE HCL 50 MG CAPS 1 every night for neuropathy 4 NORTRIPTYLINE HCL 25334640121 Active Baltazar Childers MD Acti ve GABAPENTIN 300 MG CAPS 1 three times a day GABAPE NTIN 41394656814 Active KENDALL Juarez Active GABAPENTIN 300 MG CAPS 1 po qd x 2 days, then 1 po BID x 2 d ays, then 1 po TID GABAPENTIN 62410256563 No Longer Active Baltazar silverman MD Active TRAMADOL HCL 50 MG TABS 1 twice a day as needed for pain TRAMADOL HCL 37872283221 Active Baltazar Childers MD Active NAPROXEN 500 MG TABS 1 tablet by mouth twice daily NAPROXEN 26664167211 No Longer Active Baltazar Childers MD Active PROAIR HFA 108 (90 BASE) MCG/ACT AERS 2 puffs four times a d ay as needed ALBUTEROL SULFATE 14591723043 Active KENDALL Juarez Active DEPO-TESTOSTERONE 200 MG/ML OIL as directed RUFINO TOSTERONE CYPIONATE 88519007146 No Longer Active Baltazar Childers MD Active LIPITOR 20 MG TABS Take one by mouth daily in evening ATORVASTATIN CALCIUM 49169697122 No Longer Active Baltazar Childers MD Activ e CRESTOR 10 MG TABS 1 by mouth every day R OSUVASTATIN CALCIUM 76600372357 No Longer Active Baltazar Childers MD Activ e PHENTERMINE HCL 37.5 MG TABS Take one by mouth daily 2 PHENTERMINE HCL 35675050922 No Longer Active Baltazar Childers MD Activ e ROBAXIN-750 750 MG TABS Take one by mouth daily ME THOCARBAMOL 60541367667 Active Baltazar Childers MD Active TIZANIDINE HCL 4 MG TABS 1 daily as needed for muscle spasm 2011 TIZANIDINE HCL 97770567205 No Longer Active Dawna Salazar RN Active [id number]-WHJC-CHAPBUDC 50-325-40 MG TABS 1 four time s a day as needed for heacache [id number] 85122390444 Active Baltazar Childers MD Active SUMATRIPTAN SUCCINATE 100 MG TABS 1 tablet by mouth at onset of migraine as needed SUMATRIPTAN SUCCINATE 72875827042 Active KENDALL Juarez Active LORATADINE 10 MG TABS Take one by mouth daily LORATADINE 25267701624 Active Baltazar Childers MD Active OMEPRAZOLE 20 MG CPDR Take one by mouth daily OMEPRAZOLE 50811199237 Active Baltazar Childers MD Active HYDROXYZINE HCL 25 MG TABS Take one by mouth daily HYDROXYZINE HCL 24211483088 Active Baltazar Childers MD Active GLIPIZIDE 10 MG TABS 1 tablet by mouth twice daily GLIPIZIDE 83777771638 Active Bella Suarez APRN Active ALPRAZOLAM 1 MG TABS 1 tablet by mouth daily at bedtime for restles s leg ALPRAZOLAM 54611193536 Active Baltazar Childers MD Active METFORMIN HCL 1000 MG TABS Take one by mouth twice daily METFORMIN HCL 60215202812 Active Baltazar Childers MD Active TIZANIDINE HCL 4 MG TABS 1 daily as needed for muscle spasm 2011 TIZANIDINE HCL 4 MG TABS 825610 TIZANIDINE HCL Inactiv e PHENTERMINE HCL 37.5 MG TABS Take one by mouth daily 2 PHENTERMINE HCL 37.5 MG TABS 928178 PHENTERMINE HCL Inactive CRESTOR 10 MG TABS 1 by mouth every day C RESTOR 10 MG TABS ROSUVASTATIN CALCIUM Inactive LIPITOR 20 MG TABS Take one by mouth daily in evening LIPITOR 20 MG TABS 222029 ATORVASTATIN CALCIUM Inactive DEPO-TESTOSTERONE 200 MG/ML OIL as directed 8 DEPO-TESTOSTERONE 200 MG/ML OIL 270847 TESTOSTERONE CYPIONATE Inactive NAPROXEN 500 MG TABS 1 tablet by mouth twice daily 201 07/27/22 NAPROXEN 500 MG TABS 263011 NAPROXEN Inactive GABAPENTIN 300 MG CAPS 1 po qd x 2 days, then 1 po BID x 2 d ays, then 1 po TID GABAPENTIN 300 MG CAPS 422737 GABAPENTIN Inact amie ONETOUCH ULTRA BLUE STRP Test twice a day ONETOUCH ULTRA BLUE STRP GLUCOSE BLOOD Inactive NAPROXEN SODIUM 220 MG ORAL TABS 1 three times a day as needed 2 NAPROXEN SODIUM 220 MG ORAL TABS 459595 NAPROXEN SODIUM Inactive Immunizations Vaccine Administration Date Value Standard Floyd cription pneumococcal immunization administered Pneumovax 23 [CVX33] pneumococcal polysaccharide vaccine, 23 valent Seasonal influenza vaccine, injectable, containing preservative, for > 3 years old (Afluria, FluLaval, Fluzone, Fluvirin, Fluarix, Agriflu(>= 18 yo)) Fluzone (>3 yrs.) [[id number]] Influenza, seasonal, inject able Seasonal influenza vaccine, injectable, containing preservative, for > 3 years old (Afluria, FluLaval, Fluzone, Fluvirin, Fluarix, Agriflu(>= 18 yo)) Fluzone (>3 yrs.) [[id number]] Influenza, seasonal, inject able Vital Signs Date [...] - Chem istry sodium, serum 140 mmol/L 562-348 9096/05/05 potassium, serum 4.9 mmol/L 3.5-5.2 chloride, serum 99 mmol/L 98-107 carbon dioxide, venous blood 34.3 mmol/L 21.0-32 .0 blood glucose 132 mg/dL 65-110 calcium, serum 10.1 mg/dL 8.5-10.1 urea nitrogen, blood 23 mg/dL 7-18 creatinine, serum 2.00 mg/dL 0.60-1.30 Lab Report: CBC, HGBA1C, Renal Panel - C hemistry hemoglobin A1C, blood, as % of total hemoglobin 7.9 % 4.3-6.0 sodium, serum 139 mmol/L 592-569 0334/02/04 potassium, serum 5.4 mmol/L 3.5-5.2 chloride, serum [...] Panel - Chemistry sodium, serum 138 mmol/L 237-130 3000/11/23 carbon dioxide, venous blood 32.4 mmol/L 21.0-32 .0 potassium, serum 5.7 mmol/L 3.5-5.2 chloride, serum 98 mmol/L 98-107 blood glucose 136 mg/dL 65-110 urea nitrogen, blood 18 mg/dL 7-18 creatinine, serum 1.71 mg/dL 0.55-1.30 alanine aminotransferase (SGPT), serum 71 U/L 12-78 aspartate aminotransferase (SGOT), serum 34 U/L 15-37 calcium, serum 9.4 mg/dL 8.5-10.1 bilirubin, serum, total 0.40 mg/dL 0.00-1.00 cholesterol, serum 405 mg/dL 758-281 9097/11/23 triglyceride, serum, fasting 709 mg/dL 30-200 HDL [...] mg/dL Encounters Code Encounter Date Provider Facility CPT-10448 Level 4 Est. Patient 16:54:07 BUSHING AND BROACH OPERATOR Baltazar Childers MD [facility] CPT-19654 Level 4 Est. Patient 15:42:12 CDT Baltazar Childers MD [facility] CPT-18324 Level 4 Est. Patient 11:29:55 CDT Baltazar Childers MD [facility] CPT-68008 Level 4 Est. Patient 14:15:19 CDT Baltazar Childers MD [facility] CPT-12399 Level 4 Est. Patient 12:20:13 CDT Baltazar Childers MD [facility] CPT-34029 Level 4 Est. Patient 14:52:45 BUSHING AND BROACH OPERATOR Baltazar Childers MD [facility] CPT-53282 Level 4 Est. Patient 14:18:34 BUSHING AND BROACH OPERATOR Baltazar Childers MD [facility] CPT-21228 Level 4 Est. Patient 15:18:29 CDT Baltazar Childers MD [facility] CPT-33891 Level 3 Est. Patient 12:45:34 CDT Baltazar Childers MD [facility] CPT-83096 Level 3 Est. Patient 10:10:11 CDT Baltazar Cihlders MD [facility] CPT-90948 Level 3 Est. Patient 14:07:50 CDT Baltazar Childers MD [facility] CPT-86215 Level 4 Est. Patient 12:26:10 BUSHING AND BROACH OPERATOR Baltazar Childers MD [facility] CPT-08864 Level 4 Est. Patient 14:45:38 CDT Baltazar Childers MD [facility] CPT-54754 Level 4 New Patient 12:30:48 CDT Baltazar hinton MD [facility] Procedures Code Procedure Name Date Entry Date Standard Desc ription CPT-27555 Venipuncture Draw Fee 14:50:21 BUSHING AND BROACH OPERATOR CPT-70485 Immunization Single Admin 17:35:35 CDT 2014 CPT-22956 Fluzone Quadrivalent preservative free ( >=3yrs.) 17:35:35 CDT CPT-99701 Venipuncture Draw Fee 12:10:27 BUSHING AND BROACH OPERATOR CPT-21567 Fluzone Quadrivalent Intramuscular Suspe nsion 0.5 ML 10:49:13 CDT CPT-39810 First Vx Component - Ix admi n via ID IM or jet inj without physician counseling 15:17:19 BUSHING AND BROACH OPERATOR CPT-83905 Pneumovax 23 15:17:19 BUSHING AND BROACH OPERATOR CPT-38195 Pneumovax 14:52:45 BUSHING AND BROACH OPERATOR CPT-14595 Venipuncture Draw Fee 14:06:30 BUSHING AND BROACH OPERATOR CPT-000 Give Appropriate Flu Vaccine 14:18:34 BUSHING AND BROACH OPERATOR 2 CPT-25615 Administration single or combination vac cine inc oral 14:46:00 BUSHING AND BROACH OPERATOR CPT-78573 Influenza split virus > age 3 14:46:00 BUSHING AND BROACH OPERATOR CPT-OV Office Visit 19:13:16 CDT CPT-03386 Zostavax 18:41:56 CDT CPT-73888 Administration single or combination vac cine inc oral 12:56:39 CDT CPT-10750 Zoster Vaccine (Zostavax) 12:56:39 CDT 2012 CPT-12984 Venipuncture Draw Fee 10:58:57 CDT CPT-90733 Sono pelvis non OB uterus ovaries cervix 17:45:04 CDT CPT-56631 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
--- OUTSIDE RECORDS SUMMARY | 2019-10-27 13:39 | XMS REPORT ---
Author Author Elba Gardner [facility] Address [address] [place], [place] [address] Care Team Providers Care Safety Spec Name Role Phone Jimenez Gardner PCP Allergies and Adverse Reactions Name Reaction Notes codeine sulfate PENICILLINS Fish Plan of Treatment Planned Activity Comments Planned Date Planned Time Plan/Goal CT ABD AND PELVIS W/CONTRAST 11/16/2018 12:00 AM US ABDOMINAL COMPLETE 12/01/2018 12:00 AM CMP (comprehensive metabolic panel) 12/30/2018 12:00 AM EKG (12-lead electrocardiogram) 12/30/2018 12:00 AM CBC W/ AUTO DIFF (RFLX MAN DIFF IF IND). 12/30/2018 12:00 AM HbA1c 12/30/2018 12:00 AM CX CHEST 2 VIEWS 12/30/2018 12:00 AM Medications Active Name Start Date Estimated Completion Date SIG Co mments hydrocodone-acetaminophen 7.5-325 mg oral tablet take 1 tablet by oral route every 6 hours as needed for pain alprazolam 1 mg oral tablet take 1 tablet by oral route once a day (at bedtime) gtdpnshudw-nwsbwzxvzlppo-mjgr 50-325-40 mg oral tablet take 1 tablet by oral route every 4 hours as needed not to exceed 6 tablets per 24hrs aspirin 81 mg oral tablet,delayed release (DR/EC) take 1 tablet (81 mg) by oral route once daily lisinopril 20 mg oral tablet take 1 table t (20 mg) by oral route once daily Synthroid 112 mcg oral tablet ta ke 1 tablet (112 mcg) by oral route once daily Lantus U-100 Insulin 100 unit/mL subcutaneous solution inject by subcutaneous route per prescriber's instructions. Insulin dosing requires individualization. atorvastatin 20 mg oral tablet t jairo 1 tablet (20 mg) by oral route once daily nortriptyline 50 mg oral capsule take 1 capsule (50 mg) by oral route 2 times per day Robaxin 500 mg oral tablet Take 1 1/2 tab s once daily sumatriptan succinate 100 mg oral tablet take 1 tablet (100 mg) by oral route after onset of migraine; may repeat after 2 hours if headache returns, not to exceed 200mg in 24hrs loratadine 10 mg oral tablet take 1 table t (10 mg) by oral route once daily furosemide 40 mg oral tablet take 1 table t (40 mg) by oral route once daily amlodipine 5 mg oral tablet take 1 tablet (5 mg) by oral route once daily omeprazole 20 mg oral capsule,delayed release(DR/EC) take 1 capsule (20 mg) by oral route once daily before a meal hydroxyzine HCl 25 mg oral tablet take 1 tablet by oral route daily glipizide 10 mg oral tablet take 2 tablets (20 mg) by oral route 2 times per day before meals metformin 1,000 mg oral tablet t jairo 1 tablet (1,000 mg) by oral route 2 times per day with morning and evening meals ProAir HFA 90 mcg/actuation inhalation HFA aerosol inhaler inhale 2 puffs (180 mcg) by inhalation route every 6 hours as needed Name Start Date Expiration Date SIG Comments Aspir-81 81 mg oral tablet,delayed release (DR/EC) nortriptyline 10 mg oral capsule butalbital (bulk) miscellaneous powder us e as directed sumatriptan nasal amlodipine oral atorvastatin oral lisinopril oral hydroxyzine HCl oral furosemide oral glipizide oral levothyroxine oral loratadine oral omeprazole oral ProAir HFA 90 mcg/actuation inhalation HFA aerosol inhaler hydrocodone-acetaminophen oral metformin oral alprazolam oral cefdinir 300 mg oral capsule 11/11/2018 08/29/2018 jan e 2 capsules (600 mg) by oral route once daily for 10 days Problem List Description Status Onset RLQ abdominal pain Active 11/18/2018 Abdominal Pain Active 12/21/2018 Vital Signs Date Time BP-Sys(mm[Hg] BP-Cassi(mm[Hg]) HR(bpm) RR(rpm) Temp WT HT HC BMI BSA BMI Percentile O2 Sat(%) 12/17/2018 3:28:00 PM 149 mmHg 82 mmHg 95 bpm 20 rpm 96.8 F 231 lbs 11/16/2018 3:49:00 PM 103 mmHg 67 mmHg 95 bpm 20 rpm 96.9 F 235 lbs 66 in 37.93 kg/m2 2.23 m2 08/19/2018 5:33:00 PM 132 mmHg 84 mmHg 94 bpm 20 rpm 96.6 F 231 lbs 67 in 36.1793 kg/m 2.2256 m 97 % Social History Name Description Comments Tobacco Former smoker denies alcohol use History of Procedures Date Ordered Description Order Status 01/07/2018 12:00 AM COLLECTION VENOUS BLOOD VENIPUNCTURE Rev iewed 08/19/2018 5:35 PM STREP A ASSAY W/OPTIC Reviewed 12/01/2018 12:00 AM US EXAM PELVIC COMPLETE Reviewed Results Summary Date and Description Results 09/21/2018 7:21 AM STREPTOCOCCUS, GROUP A CULTU RE Negative History Of Immunizations Not available. History of Past Illness Name Date of Onset Comments Tumor cells, benign Right abdominal Asthma Hyperlipemia Diabetes Neuropathy Migraines Hypertension GERD Seasonal Allergies Restless leg syndrome RLQ abdominal pain 11/18/2018 Abdominal Pain 12/21/2018 Hypertension Jan 07 2018 1:46PM Type 2 diabetes mellitus without complications Jan 07 2018 1:46PM Chronic kidney disease, stage 3 (moderate) Jan 07 2018 1:46 PM Pharyngitis Aug 19 2018 5:35PM Laryngitis Aug 19 2018 5:35PM RLQ abdominal pain Nov 16 2018 3:50PM RLQ abdominal pain Dec 01 2018 12:40PM Abdominal Pain Dec 17 2018 3:29PM Preoperative examination Dec 30 2018 10:12AM Diabetes mellitus, type 2 Dec 30 2018 10:12AM Payers Insurance Name Company Name Plan Name Plan Number Policy Number Glenn cy Group Number Start Date [facility] [id number] N/A [facility] [id number] N/A History of Encounters Visit Date Visit Type Provider 12/17/2018 Office visit Jimenez Gardner DO 11/16/2018 Office visit Jimenez Gardner DO 08/19/2018 Office visit Kelly Weir APR N 01/07/2018 Laboratory Alysha Pratt SUPERVISOR YARD
--- OUTSIDE RECORDS SUMMARY | 2019-10-27 13:39 | XMS REPORT ---
Author Author Elba Gardner Organization [facility] Address [address] [place], [place] [address] Care Team Providers Care Garment Inspector Name Role Phone Jimenez Gardner PCP Allergies and Adverse Reactions Name Reaction Notes codeine sulfate PENICILLINS Fish Plan of Treatment Planned Activity Comments Planned Date Planned Time Plan/Goal CT ABD AND PELVIS W/CONTRAST 11/16/2018 12:00 AM Medications Active Name Start Date Estimated Completion Date SIG Co mments hydrocodone-acetaminophen 7.5-325 mg oral tablet take 1 tablet by oral route every 6 hours as needed for pain alprazolam 1 mg oral tablet take 1 tablet by oral route once a day (at bedtime) qjpkrwjeff-taiydposvfaep-xhqx 50-325-40 mg oral tablet take 1 tablet [...] Status Onset RLQ abdominal pain Active 11/18/2018 Vital Signs Date Time BP-Sys(mm[Hg] BP-Cassi(mm[Hg]) HR(bpm) RR(rpm) Temp WT HT HC BMI BSA BMI Percentile O2 Sat(%) 11/16/2018 3:49:00 PM 103 mmHg 67 mmHg 95 bpm 20 rpm 96.9 F 235 lbs 66 in 37.9296 kg/m 2.2279 m 08/19/2018 5:33:00 PM 132 mmHg 84 mmHg 94 bpm 20 rpm 96.6 F 231 lbs 67 in 36.18 kg/m2 2.23 m2 97 % Social History Name Description Comments Tobacco Former smoker denies alcohol use History of Procedures Date Ordered Description Order Status 01/07/2018 12:00 AM COLLECTION VENOUS BLOOD VENIPUNCTURE Rev iewed 08/19/2018 5:35 PM STREP A ASSAY W/OPTIC Reviewed Results Summary Date and Description Results 09/21/2018 7:21 AM STREPTOCOCCUS, GROUP A CULTU RE Negative History Of Immunizations Not available. History of Past Illness Name Date of Onset Comments Tumor cells, benign Right abdominal Asthma Hyperlipemia Diabetes Neuropathy Migraines Hypertension GERD Seasonal Allergies Restless leg syndrome RLQ abdominal pain 11/18/2018 Hypertension Jan 07 2018 1:46PM Type 2 diabetes mellitus without complications Jan 07 2018 1:46PM Chronic kidney disease, stage 3 (moderate) Jan 07 2018 1:46 PM Pharyngitis Aug 19 2018 5:35PM Laryngitis Aug 19 2018 5:35PM RLQ abdominal pain Nov 16 2018 3:50PM Payers Insurance Name Company Name Plan Name Plan Number Policy Number Glenn cy Group Number Start Date [facility] [id number] N/A [facility] [id number] N/A History of Encounters Visit Date Visit Type Provider 11/16/2018 Office visit Jimenez Gardner DO 08/19/2018 Office visit Kelly Weir APR N 01/07/2018 Laboratory Alysha Pratt CORSAGE MAKER
--- OUTSIDE RECORDS SUMMARY | 2019-10-27 13:39 | XMS REPORT ---
Author Author Elba Gardner [facility] Address [address] [place], [place] [address] Care Team Providers Care Process Developer Name Role Phone Jimenez Gardner PCP Allergies [...] oral route once a day (at bedtime) ydexrtqzfu-iwfkpscgjxyxw-whfv 50-325-40 mg oral tablet take 1 tablet [...] Percentile O2 Sat(%) 12/17/2018 3:28:00 PM 149 mm[Hg] 82 mm[Hg] 95 {beats}/min 20 rpm 96.8 F 231 lbs 11/16/2018 3:49:00 PM 103 mm[Hg] 67 mm[Hg] 95 {beats}/min 20 rpm 96.9 F 235 lbs 66 in 37.93 kg/m2 2.23 m2 08/19/2018 5:33:00 PM 132 mm[Hg] 84 mm[Hg] 94 {beats}/min 20 rpm 96.6 F 231 lbs 67 in 36.1793 kg/m2 2.2256 m2 97 % Social History Name Description [...] mellitus, type 2 Dec 30 2018 10:12AM Abdominal Pain Jan 20 2019 10:09AM Payers Insurance Name Company Name Plan Name Plan Number Policy Number Glenn cy Group Number Start Date [facility] [place] [facility] [id number] N/A [facility] [id number] N/A History of Encounters Visit Date Visit Type Provider 12/17/2018 Office visit Jimenez Gardner DO 11/16/2018 Office visit Jimenez Gardner DO 08/19/2018 Office visit Kelly Weir APR N 01/07/2018 Laboratory Alysha Pratt PHYSICAL THERAPY ASSISTANT INSTRUCTOR
--- OUTSIDE RECORDS SUMMARY | 2019-10-27 13:39 | XMS REPORT ---
Author Author Elba Pratt [facility] Address [address] [place], [place] [address] Care Team Providers Care Denture Model Maker Name Role Phone Alysha Pratt PCP Allergies and Adverse Reactions Not available. Plan of Treatment Not available. Medications Not available. Problem List Not available. Vital Signs Not available. Social History Not available. History of Procedures Date Ordered Description Order Status 01/07/2018 12:00 AM COLLECTION VENOUS BLOOD VENIPUNCTURE Rev iewed Results Summary Not available. History Of Immunizations Not available. History of Past Illness Name Date of Onset Comments Hypertension Jan 07 2018 1:46PM Type 2 diabetes mellitus without complications Jan 07 2018 1:46PM Chronic kidney disease, stage 3 (moderate) Jan 07 2018 1:46 PM Payers Insurance Name Company Name Plan Name Plan Number Policy Number Glenn cy Group Number [facility] [id number] N/A History of Encounters Visit Date Visit Type Provider 01/07/2018 Laboratory Alysha Pratt SOCIAL SERVICES
--- OUTSIDE RECORDS SUMMARY | 2019-10-27 13:39 | XMS REPORT ---
Author Author Elba Gardner Organization [facility] Address [address] [place], [place] [address] Care Team Providers Care Wire Winder Name Role Phone Jimenez Gardner PCP Allergies and Adverse Reactions Name Reaction Notes codeine sulfate PENICILLINS Fish Plan of Treatment Planned Activity Comments Planned Date Planned Time Plan/Goal CT ABD AND PELVIS W/CONTRAST 11/16/2018 12:00 AM US ABDOMINAL COMPLETE 12/01/2018 12:00 AM Medications Active Name Start Date Estimated Completion Date SIG Co mments hydrocodone-acetaminophen 7.5-325 mg oral tablet take 1 tablet by oral route every 6 hours as needed for pain alprazolam 1 mg oral tablet take 1 tablet by oral route once a day (at bedtime) ejrdurwxxe-oikdjfyodgnlr-rstz 50-325-40 mg oral tablet take 1 tablet [...] 12:40PM Abdominal Pain Dec 17 2018 3:29PM Payers Insurance Name Company Name Plan Name Plan Number Policy Number Glenn cy Group Number Start Date [facility] [id number] N/A [facility] [id number] N/A History of Encounters Visit Date Visit Type Provider 12/17/2018 Office visit Jimenez Gardner DO 11/16/2018 Office visit Jimenez Gardner DO 08/19/2018 Office visit Kelly Weir APR N 01/07/2018 Laboratory Alysha Pratt APRN
--- OUTSIDE RECORDS SUMMARY | 2019-10-27 13:39 | XMS REPORT ---
Author Author Elba Gardner Organization [facility] Address [address] [place], [place] [address] Care Team Providers Care Backup Operator Name Role Phone Jimenez Gardner PCP Allergies and Adverse Reactions Name Reaction Notes codeine sulfate PENICILLINS Fish Plan of Treatment Planned Activity Comments Planned Date Planned Time Plan/Goal US ABDOMINAL COMPLETE 12/01/2018 12:[address] ABD AND PELVIS W/CONTRAST 11/16/2018 12:00 AM Medications Active Name Start Date Estimated Completion Date SIG Co mments hydrocodone-acetaminophen 7.5-325 mg oral tablet take 1 tablet by oral route every 6 hours as needed for pain alprazolam 1 mg oral tablet take 1 tablet by oral route once a day (at bedtime) hwjgiroxby-vtpdaxxzxsaal-libb 50-325-40 mg oral tablet take 1 tablet [...] 12:00 AM US EXAM PELVIC COMPLETE Reviewed 12/30/2018 12:00 AM COMPREHEN METABOLIC PANEL Reviewed 12/30/2018 12:00 AM ELECTROCARDIOGRAM COMPLETE Reviewed 12/30/2018 12:00 AM COMPLETE CBC W/AUTO DIFF WBC Reviewed 12/30/2018 12:00 AM GLYCOSYLATED HEMOGLOBIN TEST Reviewed 12/30/2018 12:00 AM CHEST X-RAY 2VW FRONTAL&LATL Reviewed Results Summary Date and Description Results [...] Number Glenn cy Group Number Start Date [facility] [id number] N/A [facility] [id number] N/A History of Encounters Visit Date Visit Type Provider 12/17/2018 Office visit Jimenez Gardner DO 11/16/2018 Office visit Jimenez Gardner DO 08/19/2018 Office visit Kelly Weir APR N 01/07/2018 Laboratory Alysha Pratt DIRECTOR CORRECTIONAL AGENCY
--- OUTSIDE RECORDS SUMMARY | 2019-10-27 13:39 | XMS REPORT ---
Author Author Elba Gardner Organization [facility] Address [address] [place], [place] [address] Care Team Providers Care Liquid Hydrogen Plant Operator Name Role Phone Jimenez Gardner PCP Allergies and Adverse Reactions Name Reaction Notes codeine sulfate PENICILLINS Fish Plan of Treatment Planned Activity Comments Planned Date Planned Time Plan/Goal CT ABD AND PELVIS W/CONTRAST 11/16/2018 12:00 AM US ABDOMINAL COMPLETE 12/01/2018 12:00 AM US PELVIC NON-OB 12/01/2018 12:00 AM Medications Active Name Start Date Estimated Completion Date SIG Co mments hydrocodone-acetaminophen 7.5-325 mg oral tablet take 1 tablet by oral route every 6 hours as needed for pain alprazolam 1 mg oral tablet take 1 tablet by oral route once a day (at bedtime) lqkrgymyar-zacqoxktzjhkq-jgwx 50-325-40 mg oral tablet take 1 tablet [...] RLQ abdominal pain Dec 01 2018 12:40PM Payers Insurance Name Company Name Plan Name Plan Number Policy Number Glenn cy Group Number Start Date [facility] [id number] N/A [facility] [id number] N/A History of Encounters Visit Date Visit Type Provider 11/16/2018 Office visit Jimenez Gardner DO 08/19/2018 Office visit Kelly Weir APR N 01/07/2018 Laboratory Alysha Pratt APRN
--- OUTSIDE RECORDS SUMMARY | 2019-10-27 13:39 | XMS REPORT ---
Author Author Elba Gardner Organization [facility] Address [address] [place], [place] [address] Care Team Providers Care Manager Market Research Name Role Phone Jimenez Gardner PCP Allergies [...] oral route once a day (at bedtime) fiyuplxmuz-xyqphdxodofgw-yjig 50-325-40 mg oral tablet take 1 tablet [...] inhalation route every 6 hours as needed metoprolol tartrate 25 mg oral tablet take 1 tablet (25 mg) by oral route 2 times per day Name Start Date Expiration Date SIG Comments [...] Onset RLQ abdominal pain Active 11/18/2018 Abdominal pain Active 12/21/2018 Vital Signs Date Time BP-Sys(mm[Hg] BP-Cassi(mm[Hg]) HR(bpm) RR(rpm) Temp WT HT HC BMI BSA BMI Percentile O2 Sat(%) 04/05/2019 2:13:00 PM 113 mm[Hg] 56 mm[Hg] 88 {beats}/min 20 rpm 96.8 F 228 lbs 66 in 36.7998 kg/m2 2.1945 m2 12/17/2018 3:28:00 PM 149 mm[Hg] 82 mm[Hg] [...] leg syndrome RLQ abdominal pain 11/18/2018 Abdominal pain 12/21/2018 Hypertension Jan 07 2018 1:46PM Type [...] 10:12AM Abdominal Pain Jan 20 2019 10:09AM Abdominal Pain Mar 02 2019 2:48PM Payers Insurance Name Company Name Plan Name Plan Number Policy Number Glenn cy Group Number Start Date [facility] [id number] N/A [employer] Emily 100 percent October [facility] [id number] N/A History of Encounters Visit Date Visit Type Provider 04/05/2019 Surgery Jimenez Gardner DO 03/21/2019 Surgery Jimenez Gardner DO 12/17/2018 Office visit Jimenez Gardner DO 11/16/2018 Office visit Jimenez Gardner DO 08/19/2018 Office visit Kelly Weir APR N 01/07/2018 Laboratory Alysha Pratt FIRE PROTECTION DESIGNER
--- OUTSIDE RECORDS SUMMARY | 2019-10-27 13:39 | XMS REPORT ---
Author Author Elba Gardner Organization [facility] Address [address] [place], [place] [address] Care Team Providers Care Information Technology Security Analyst Name Role Phone Jimenez Gardner PCP Allergies [...] oral route once a day (at bedtime) wghgskvzed-zedzzkrkfyzhd-wwvc 50-325-40 mg oral tablet take 1 tablet [...] Number Glenn cy Group Number Start Date [facility] [id number] N/A [facility] [id number] N/A History of Encounters Visit Date Visit Type Provider 12/17/2018 Office visit Jimenez Gardner DO 11/16/2018 Office visit Jimenez Gardner DO 08/19/2018 Office visit Kelly Weir APR N 01/07/2018 Laboratory Alysha Pratt SWAGER OPERATOR
--- OUTSIDE RECORDS SUMMARY | 2019-10-27 13:39 | XMS REPORT ---
Author Author Elba Weir Organization [facility] Address [address] [place], [place] [address] Care Team Providers Care Keyboard Instrument Tuner Name Role Phone Rajesh Weirmy Chelsea PCP Allergies and Adverse Reactions Name Reaction Notes codeine sulfate Plan of Treatment Not available. Medications Active Name Start Date Estimated Completion Date SIG Co mments Aspir-81 81 mg oral tablet,delayed release (DR/EC) nortriptyline 10 mg oral capsule butalbital (bulk) miscellaneous powder us e as directed sumatriptan nasal amlodipine oral atorvastatin oral lisinopril oral hydroxyzine HCl oral furosemide oral glipizide oral levothyroxine oral loratadine oral omeprazole oral ProAir HFA 90 mcg/actuation inhalation HFA aerosol inhaler hydrocodone-acetaminophen oral metformin oral alprazolam oral Name Start Date Expiration Date SIG Comments cefdinir 300 mg oral capsule 08/19/2018 08/29/2018 jan e 2 capsules (600 mg) by oral route once daily for 10 days Problem List Not available. Vital Signs Date Time BP-Sys(mm[Hg] BP-Cassi(mm[Hg]) HR(bpm) RR(rpm) Temp WT HT HC BMI BSA BMI Percentile O2 Sat(%) 08/19/2018 5:33:00 PM 132 mmHg 84 mmHg 94 bpm 20 rpm 96.6 F 231 lbs 67 in 36.1793 kg/m 2.2256 m 97 % Social History Name Description Comments Tobacco Former smoker History of Procedures Date Ordered Description Order Status 01/07/2018 12:00 AM COLLECTION VENOUS BLOOD VENIPUNCTURE Rev iewed 08/19/2018 5:35 PM STREP A ASSAY W/OPTIC Reviewed Results Summary Date and Description Results 09/21/2018 7:21 AM STREPTOCOCCUS, GROUP A CULTU RE Negative History Of Immunizations Not available. History of Past Illness Name Date of Onset Comments Tumor cells, benign Right abdominal Hypertension Jan 07 2018 1:46PM Type 2 diabetes mellitus without complications Jan 07 2018 1:46PM Chronic kidney disease, stage 3 (moderate) Jan 07 2018 1:46 PM Pharyngitis Aug 19 2018 5:35PM Laryngitis Aug 19 2018 5:35PM Payers Insurance Name Company Name Plan Name Plan Number Policy Number Glenn cy Group Number Start Date [facility] [id number] N/A History of Encounters Visit Date Visit Type Provider 08/19/2018 Office visit Kelly Weir APR N 01/07/2018 Laboratory Alysha Pratt HOT METAL CAR OPERATOR
--- OUTSIDE RECORDS SUMMARY | 2019-10-27 13:40 | XMS REPORT ---
Author Author Elba Lawson Organization [facility] Address [address] [place] [address] Care Team Providers Care Public Welfare Worker Name Role Phone SHRUTHI Lawson Unavailable PROBLEMS No Known Problems ALLERGIES Substance Reaction Event Type Date Status Codeine hives Drug Allergy Feb, Active Fish and fish containing products Unknown Non Drug Allergy Feb, Active ENCOUNTERS Encounter Location Date Diagnosis [facility] [address] [id number] [place], [place] [id number] Feb, Right ankle strain, initial encounter S9 6.911A [facility] [address] [id number] [place] [id number] Oct, Puncture wound of buttock 877.0 [facility] [address] [facility] [id number] [address] [place] [phone] Aug, [facility] [address] [facility] [id number] [address] [place] [phone] Aug, [facility] [address] [facility] [id number] [address] [place] [phone] September, [facility] [address] [facility] [id number] [address] [place] [phone] Jun, [facility] [address] [facility] [id number] [address] [place] [phone] May, [facility] [address] [facility] [id number] [place] [id number] May, IMMUNIZATIONS No Known Immunizations SOCIAL HISTORY Never Assessed REASON FOR VISIT Pain (acute) CHRISTINE Fischer, Pain to the right foot PLAN OF CARE Activity Details Follow Up prn Reason: VITAL SIGNS Height 66 in 2017-03-11 Weight 229.9 lbs 2017-03-11 Temperature 98.0 degrees Fahrenheit 2017-03-11 Heart Rate 97 bpm 2017-03-11 Respiratory Rate 18 2017-03-11 BMI 37.10 kg/m2 2017-03-11 Blood pressure systolic 128 mmHg 2017-03-11 Blood pressure diastolic 80 mmHg 2017-03-11 MEDICATIONS Medication Instructions Dosage Frequency Start Date End Date Duration S tatus metformin 1,000 mg take 1 tablet (1,000 mg) by oral route 2 times per day with morning and evening meals May, Ac tive Omeprazole 20 mg take 1 capsule (20 m g) by oral route once daily before a meal May, Active Loratadine 10 mg take 1 tablet (10 mg) by oral route o nce daily May, Active Sumatriptan Succinate 100 mg take 1 tabl et (100 mg) by oral route once with fluids as early as possible after the onset of a migraine attack;may repeat after 2 hours if headache returns, not to exceed 200mg in 24hrs May, Active Hydrocodone-Acetaminophen 7.5-325 mg jan e 1 tablet by oral route every 4 hours as needed for pain May, Active Atorvastatin Calcium 20 MG Orally Once a day 1 tablet 24h Active Vistaril 25 mg take 1 capsule by Oral route 2 times per day May, Active Naproxen 500 mg take 1 tablet (500 m g) by oral route 2 times per day with food May, Active Furosemide 40 mg take 1 tablet (40 mg) by oral route o nce daily May, Active Alprazolam 1 mg take 1 tablet by Oral route 1 time per day May, Active ProAir HFA 90 mcg/actuation inhale 2 puf fs by inhalation route every 4 hours as needed May, Active GlipiZIDE 10 mg take 1 tablet (10 mg ) by oral route 2 times per day before meals May, Active Nortriptyline HCl 50 MG Orally Once a day 1 capsule at bedtime 24h Active RESULTS No Results PROCEDURES No Known procedures INSTRUCTIONS MEDICATIONS ADMINISTERED No Known Medications MEDICAL (GENERAL) HISTORY Type Description Date Medical History hypertension Medical History type II diabetes Medical History chronic pain Surgical History section Surgical History cholecystectomy Surgical History appendectomy Surgical History tubal ligation Hospitalization History Surgery(s)/Childbirth(s) only
--- OUTSIDE RECORDS SUMMARY | 2019-10-27 13:40 | XMS REPORT | Clinical Summary ---
Author Author Admin, Elba Lance [facility] Address Unknown Phone Allergies, Adverse Reactions, Alerts Allergy Name Reaction [...] kidney and ureter CAD 414.00 Active Gladsy Yazmin Coronar y atherosclerosis of unspecified type of vessel, [place] or graft OTH NONSPC ABN FINDNG RAD&OTH EXM BODY STRUCTURE 793.99 11/08 Active Jessy Ruiz Other nonspecific (a bnormal) findings on radiological and other examinations of body structure NEED PROPH VACC&INOCULAT AGNST OTH SPEC DISEASE V05.8 0/ Active Elba Faux Need for prophylacti c vaccination and inoculation against other specified disease UNSPECIFIED DISORDER OF KIDNEY AND URETER 593.9 Activ e Elba Faux Unspecified disorder of kidney and urete r LEIOMYOMA OF UTERUS, UNSPECIFIED 218.9 Active 201 08/01/12 Gayathri Hudson MD Leiomyoma of uterus, unspecified WELL WOMAN EXAMINATION V72.31 Active Gayathri aviles MD Routine gynecological examination Health screening V70.0 Active Baltazar Wayne Routine general medical examination at a health care facility COLON POLYPS ICD-211.3 Inactive Lolis APR N Medication List Medication Instructions Start Date Stop Date Generic Name NDC Status Provider Patient Instruction HYDROCODONE-ACETAMINOPHEN 7.5-325 MG TABS Take 1 tab every 6-8 hour s PRN HYDROCODONE-ACETAMINOPHEN 04497037029 Active Sergio Crabtree DO Active NORTRIPTYLINE HCL 50 MG CAPS 1 every night for neuropathy 4 NORTRIPTYLINE HCL 84165727084 Active Baltazar Childers MD Acti ve GABAPENTIN 300 MG CAPS 1 three times a day GABAPE NTIN 76018087316 Active Baltazar Childers MD Active GABAPENTIN 300 MG CAPS 1 po qd x 2 days, then 1 po BID x 2 d ays, then 1 po TID GABAPENTIN 48407644323 No Longer Active Baltazar silverman MD Active TRAMADOL HCL 50 MG TABS 1 twice a day as needed for pain TRAMADOL HCL 52911522814 Active Baltazar Childers MD Active NAPROXEN 500 MG TABS 1 tablet by mouth twice daily NAPROXEN 05288231224 No Longer Active Baltazar Childers MD Active PROAIR HFA 108 (90 BASE) MCG/ACT AERS 2 puffs four times a d ay as needed ALBUTEROL SULFATE 90541184691 Active Baltazar Childers MD Active DEPO-TESTOSTERONE 200 MG/ML OIL as directed RUFINO TOSTERONE CYPIONATE 32158180707 No Longer Active Baltazar Childers MD Active LIPITOR 20 MG TABS Take one by mouth daily in evening ATORVASTATIN CALCIUM 41831511675 No Longer Active Baltazar Childers MD Activ e CRESTOR 10 MG TABS 1 by mouth every day R OSUVASTATIN CALCIUM 04660338401 No Longer Active Baltazar Childers MD Activ e PHENTERMINE HCL 37.5 MG TABS Take one by mouth daily 2 PHENTERMINE HCL 93398104068 No Longer Active Baltazar Childers MD Activ e ROBAXIN-750 750 MG TABS Take one by mouth daily ME THOCARBAMOL 90858820247 Active Baltazar Childers MD Active TIZANIDINE HCL 4 MG TABS 1 daily as needed for muscle spasm 2011 TIZANIDINE HCL 82832585657 No Longer Active Dawna Salazar RN Active ONETOUCH ULTRA BLUE STRP Test twice a day GLUCO SE BLOOD 98819380129 Active Baltazar Childers MD Active [id number] 50-325-40 MG TABS 1 four time s a day as needed for heacache [id number] 11087408426 Active Baltazar Childers MD Active SUMATRIPTAN SUCCINATE 100 MG TABS 1 tablet by mouth at onset of migraine as needed SUMATRIPTAN SUCCINATE 73462773246 Active Shireen Miller APRN Active LORATADINE 10 MG TABS Take one by mouth daily LORATADINE 53913389007 Active Brad Hughes Active FUROSEMIDE 40 MG TABS Take one by mouth daily FUROSEMIDE 78548692155 Active Shireen Miller APRN Active LISINOPRIL 20 MG TABS Take one by mouth daily at bedtime LISINOPRIL 51366475512 Active Shireen Miller APRN Active OMEPRAZOLE 20 MG CPDR Take one by mouth daily OMEPRAZOLE 52822408819 Active Shireen Miller APRN Active HYDROXYZINE HCL 25 MG TABS Take one by mouth daily HYDROXYZINE HCL 87116036188 Active Shireen Miller APRN Active GLIPIZIDE 10 MG TABS 1 tablet by mouth twice daily GLIPIZIDE 26467676755 Active Shireen Miller APRN Active ALPRAZOLAM 1 MG TABS 1 tablet by mouth daily at bedtime for restles s leg ALPRAZOLAM 37904231236 Active Baltazar Childers MD Active METFORMIN HCL 1000 MG TABS Take one by mouth twice daily METFORMIN HCL 16280725393 Active Shireen Miller APRN Active TIZANIDINE HCL 4 MG TABS 1 daily as needed for muscle spasm 2011 TIZANIDINE HCL 4 MG TABS 657068 TIZANIDINE HCL Inactiv e PHENTERMINE HCL 37.5 MG TABS Take one by mouth daily 2 PHENTERMINE HCL 37.5 MG TABS 985997 PHENTERMINE HCL Inactive CRESTOR 10 MG TABS 1 by mouth every day C RESTOR 10 MG TABS ROSUVASTATIN CALCIUM Inactive LIPITOR 20 MG TABS Take one by mouth daily in evening LIPITOR 20 MG TABS 153262 ATORVASTATIN CALCIUM Inactive DEPO-TESTOSTERONE 200 MG/ML OIL as directed 8 DEPO-TESTOSTERONE 200 MG/ML OIL 124121 TESTOSTERONE CYPIONATE Inactive NAPROXEN 500 MG TABS 1 tablet by mouth twice daily 201 07/27/22 NAPROXEN 500 MG TABS 626229 NAPROXEN Inactive GABAPENTIN 300 MG CAPS 1 po qd x 2 days, then 1 po BID x 2 d ays, then 1 po TID GABAPENTIN 300 MG CAPS 796590 GABAPENTIN Inact amie Immunizations Vaccine Administration Date Value Standard Floyd cription pneumococcal immunization administered Pneumovax 23 [CVX33] pneumococcal polysaccharide vaccine, 23 valent Seasonal influenza vaccine, injectable, containing preservative, for > 3 years old (Afluria, FluLaval, Fluzone, Fluvirin, Fluarix, Agriflu(>= 18 yo)) Fluzone (>3 yrs.) [EWL792] Influenza, seasonal, inject able Seasonal influenza vaccine, injectable, containing preservative, for > 3 years old (Afluria, FluLaval, Fluzone, Fluvirin, Fluarix, Agriflu(>= 18 yo)) Fluzone (>3 yrs.) [OXQ026] Influenza, seasonal, inject able Vital Signs Date Name Value Unit Range Description blood pressure, diastolic - 8462-4 79 mm[Hg] BP [place] blood pressure, systolic - 8480-6 127 mm[Hg] BP sys height E&M - 8302-2 66.5 [in_us] Bdy h eight pulse rate E&M - 8867-4 91 /min H eart rate temperature E&M 97.4 [degF] Body temp erature weight E&M - 3141-9 231.13 [lb_av] Weigh t Measured blood pressure, diastolic - 8462-4 67 mm[Hg] BP [place] blood pressure, systolic - 8480-6 106 mm[Hg] BP sys height E&M - 8302-2 66.5 [in_us] Bdy h eight pulse rate E&M - 8867-4 112 /min H eart rate temperature E&M 97.6 [degF] Body temp erature weight E&M - 3141-9 224 [lb_av] Weigh t Measured blood pressure, diastolic - 8462-4 73 mm[Hg] BP [place] blood pressure, systolic - 8480-6 103 mm[Hg] BP sys height E&M - 8302-2 66.5 [in_us] Bdy h eight pulse rate E&M - 8867-4 97 /min H eart rate temperature E&M 96.5 [degF] Body temp erature weight E&M - 3141-9 227 [lb_av] Weigh t Measured blood pressure, diastolic - 8462-4 71 mm[Hg] BP [place] blood pressure, systolic - 8480-6 113 mm[Hg] BP sys height E&M - 8302-2 66.5 [in_us] Bdy h eight pulse rate E&M - 8867-4 89 /min H eart rate temperature E&M 97.3 [degF] Body temp erature weight E&M - 3141-9 232.50 [lb_av] Weigh t Measured Diagnostic Results Date Name Value Unit Range Description Lab Report: Basic Metabolic Panel, HGBA1 C - Chemistry sodium, serum 140 mmol/L 062-498 1895/02/26 potassium, serum 5.3 mmol/L 3.5-5.2 chloride, serum 101 mmol/L 98-107 carbon dioxide, venous blood 36.9 mmol/L 21.0-32 .0 blood glucose 151 mg/dL 65-110 calcium, serum 8.7 mg/dL 8.5-10.1 urea nitrogen, blood 19 mg/dL 7-18 creatinine, serum 1.60 mg/dL 0.60-1.30 hemoglobin A1C, blood, as % of total hemoglobin 7.9 % 4.3-6.0 Lab Report: CBC, Comp. Metabolic Panel, Lipid Panel, HGBA1C, MICROALBUMI ... - Chemistry alanine aminotransferase (SGPT), serum 76 U/L 12-78 aspartate aminotransferase (SGOT), serum 39 U/L 15-37 alkaline phosphatase, serum 62 U/L 50-136 bilirubin, serum, total 0.39 mg/dL 0.00-1.00 cholesterol, serum 345 mg/dL 649-575 4977/08/26 triglyceride, serum, fasting 635 mg/dL 30-200 HDL cholesterol, serum 46 mg/dL 32-96 LDL cholesterol, serum 161.00 mg/dL 5.00-130.00 hemoglobin A1C, blood, as % of total hemoglobin 7.6 % 4.3-6.0 albumin/creatinine ratio, urine < 30 mg/g mg/g{creat} 0-2 9 Lab Report: CBC, Comp. Metabolic Panel, Lipid Panel, HGBA1C, MICROALBUMI ... - Hematology leukocyte count, blood 6.0 10^3/MM^3 10*3/mm3 4.6-10.2 erythrocyte (RBC) count 3.69 10^6/MM^3 10*6/mm3 4.04-5.4 8 hemoglobin, blood 11.3 g/dL 12.0-16.0 hematocrit, blood 35.5 % 36.0-46.0 mean corpuscular volume, RBC 96 fL 80-97 mean corpuscular hemoglobin, RBC 30.6 pg 27. 0-31.2 mean corpuscular hemoglobin concentration, RBC 31.8 G/DL % 31.8-35.4 red blood cell distribution width 14.5 % 11 .6-14.8 platelet count 301 10^3/MM^3 10*3/mm3 142-424 Lab Report: CBC, Comp. Metabolic Panel, Lipid Panel, HGBA1C, MICROALBUMI ... - Lab microalbumin, urine 10 0-19 Lab Report: CBC, Renal Panel - Chemistry sodium, serum 136 mmol/L 802-588 6368/01/06 potassium, serum 5.1 mmol/L 3.5-5.2 chloride, serum 95 mmol/L 98-107 carbon dioxide, venous blood 28.8 mmol/L 21.0-32 .0 blood glucose 240 mg/dL 65-110 urea nitrogen, blood 30 mg/dL 7-18 creatinine, serum 1.80 mg/dL 0.60-1.30 calcium, serum 10.3 mg/dL 8.5-10.1 Lab Report: CBC, Renal Panel - Hematolog y leukocyte count, blood 7.5 10^3/MM^3 10*3/mm3 4.6-10.2 erythrocyte (RBC) count 4.14 10^6/MM^3 10*6/mm3 4.04-5.4 8 hemoglobin, blood 13.1 g/dL 12.0-16.0 hematocrit, blood 40.2 % 36.0-46.0 mean corpuscular volume, RBC 97 fL 80-97 mean corpuscular hemoglobin, RBC 31.6 pg 27. 0-31.2 mean corpuscular hemoglobin concentration, RBC 32.6 G/DL % 31.8-35.4 red blood cell distribution width 14.5 % 11 .6-14.8 platelet count 346 10^3/MM^3 10*3/mm3 142-424 Lab Report: Chlamydia/GC DNA, SDA - Lab chlamydia DNA probe NOT DETECTED NOT DETECTED Lab Report: Chlamydia/GC DNA, SDA - Micr obiology Neisseria gonorrhoeae DNA probe NOT DETECTED NO T DETECTED Lab Report: Potassium - Chemistry potassium, serum 4.6 mmol/L 3.5-5.2 Lab Report: Renal Panel - Chemistry sodium, serum 138 mmol/L 051-611 0802/06/17 potassium, serum 4.9 mmol/L 3.5-5.2 chloride, serum 100 mmol/L 98-107 carbon dioxide, venous blood 28.1 mmol/L 21.0-32 .0 blood glucose 108 mg/dL 65-110 urea nitrogen, blood 20 mg/dL 7-18 creatinine, serum 1.60 mg/dL 0.60-1.30 calcium, serum 9.5 mg/dL 8.5-10.1 sodium, serum 139 mmol/L 408-278 9658/08/26 potassium, serum 5.8 mmol/L 3.5-5.2 chloride, serum 98 mmol/L 98-107 carbon dioxide, venous blood 33.0 mmol/L 21.0-32 .0 blood glucose 107 mg/dL 65-110 urea nitrogen, blood 26 mg/dL 7-18 creatinine, serum 1.80 mg/dL 0.60-1.30 calcium, serum 9.3 mg/dL 8.5-10.1 Lab Report: UADIP W/MICRO, AUTO - Chemis try protein, total urine random Negative mg/dL Negative RBC, urine, dipstick Negative Negative RBC, urine, dipstick Negative Negative protein, total urine random Negative mg/dL Negative Lab Report: UADIP W/MICRO, AUTO - Urinal ysis glucose, urine, semiquantitative Negative Neg ative ketones, urine, by test strip Negative Negati ve bilirubin, urine Negative Negative urobilinogen, urine, semiquantitative (dipstick) 0.2 Normal leukocyte esterase, urine, by dipstick Negative Negative nitrite, urine, semiquantitative Negative Neg ative urobilinogen, urine, semiquantitative (dipstick) 0.2 Normal leukocyte esterase, urine, by dipstick Negative Negative nitrite, urine, semiquantitative Negative Neg ative glucose, urine, semiquantitative Negative Neg ative ketones, urine, by test strip Negative Negati ve bilirubin, urine Negative Negative pH, urine, semiquantitative 5.5 5.0-8.5 specific gravity, urine 1.010 1.000-1.030 appearance, urine Clear Clear urine color Light yellow Colorless;Lightyellow; Straw;Yellow urine color Straw Colorless;Lightyellow;St raw;Yellow appearance, urine Clear Clear specific gravity, urine 1.010 1.000-1.030 pH, urine, semiquantitative 6.0 5.0-8.5 Office Visit: med check - Chemistry cholesterol, target level 200 mg/dL triglyceride, target level 200 mg/dL HDL cholesterol, serum, target level 35 mg/dL LDL target level 100 mg/dL home glucose monitor utilized Yes Office Visit: Medication check - Chemis try cholesterol, target level 200 mg/dL triglyceride, target level 150 mg/dL HDL cholesterol, serum, target level 40 mg/dL LDL target level 70 mg/dL Encounters Code Encounter Date Provider Facility CPT-21492 Level 4 Est. Patient 14:52:45 DE ICER Baltazar Childers MD [facility] CPT-02252 Level 4 Est. Patient 14:18:34 DE ICER Baltazar Childers MD [facility] CPT-31914 Level 4 Est. Patient 15:18:29 CDT Baltazar Childers MD [facility] CPT-57187 Level 3 Est. Patient 12:45:34 CDT Baltazar Childers MD [facility] CPT-07794 Level 3 Est. Patient 10:10:11 CDT Baltazar Childers MD [facility] CPT-44952 Level 3 Est. Patient 14:07:50 CDT Baltazar Childers MD [facility] CPT-07175 Level 4 Est. Patient 12:26:10 DE ICER Baltazar Childers MD [facility] CPT-81266 Level 4 Est. Patient 14:45:38 CDT Baltazar Childers MD [facility] CPT-92467 Level 4 New Patient 12:30:48 CDT Baltazar hinton MD [facility] Procedures Code Procedure Name Date Entry Date Standard Desc ription CPT-23840 First Vx Component - Ix admi n via ID IM or jet inj without physician counseling 15:17:19 DE ICER CPT-13221 Pneumovax 15:17:19 DE ICER CPT-49915 Pneumovax 14:52:45 DE ICER CPT-24796 Venipuncture Draw Fee 14:06:30 DE ICER CPT-000 Give Appropriate Flu Vaccine 14:18:34 DE ICER 2 CPT-98440 Administration single or combination vac cine inc oral 14:46:00 DE ICER CPT-79870 Influenza split virus > age 3 14:46:00 DE ICER CPT-OV Office Visit 19:13:16 CDT CPT-32773 Zostavax 18:41:56 CDT CPT-93124 Administration single or combination vac cine inc oral 12:56:39 CDT CPT-40239 Zoster Vaccine (Zostavax) 12:56:39 CDT 2012 CPT-56382 Venipuncture Draw Fee 10:58:57 CDT CPT-29984 Sono pelvis non OB uterus ovaries cervix 17:45:04 CDT CPT-17040 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
--- OUTSIDE RECORDS SUMMARY | 2019-10-27 13:40 | XMS REPORT ---
Author Author Elba Helm Doctor Organization [facility] Address Unknown Phone Unavailable Care Team Providers Care Foot Roentgenologist Name Role Phone Migration, Doctor Unavailable Unavailable PROBLEMS No Known Problems ALLERGIES No Information ENCOUNTERS Encounter Location Date Diagnosis [facility] [address] [id number] [place] [id number] Feb, Right ankle strain, initial encounter S9 6.911A [facility] [address] [facility] [id number] [place], [place] [id number] Oct, Puncture wound of buttock 877.0 [facility] [address] [facility] [id number] [address] [place] [phone] Aug, [facility] [address] [facility] [id number] [address] [place] [phone] Aug, [facility] [address] [facility] [id number] [address] [place] [phone] September, [facility] [address] [facility] [id number] [address] [place] [phone] Jun, [facility] [address] [facility] [id number] [address] [place] [phone] May, [facility] [address] [facility] [id number] [employer] [place] [id number] May, IMMUNIZATIONS No Known Immunizations SOCIAL HISTORY Never Assessed REASON FOR VISIT EMR-[facility] [place] PLAN OF CARE VITAL SIGNS MEDICATIONS No Known Medications RESULTS No Results PROCEDURES No Known procedures INSTRUCTIONS MEDICATIONS ADMINISTERED No Known Medications MEDICAL (GENERAL) HISTORY Type Description Date Medical History hypertension Medical History type II diabetes Medical History chronic pain Surgical History section Surgical History cholecystectomy Surgical History appendectomy Surgical History tubal ligation Hospitalization History Surgery(s)/Childbirth(s) only
--- OUTSIDE RECORDS SUMMARY | 2019-10-27 13:40 | XMS REPORT | Continuity of Care Document ---
Author Author [facility] Organization [facility] Address [facility] [address] [place] [id number] Phone Unavailable Support Name Relationship Address Phone AURORA PEARSON MD Caregiver [address] [place] [id number] Unavailable JEANNE DUTTA Next Of Kin [address] [place] [address] Insurance Providers Payer Name Policy Number Subscriber Name Relationship Sanjana Vera [id number] Elba Dutta 18 Self / Royer e As Patient Advance Directives Directive Response Recorded Date/Time Do you have an Advanced Directive? No 07/21 11:01am Advance Directives No 10/02/11 10:37pm Living Will No 10/02/11 10:37pm Health Care Proxy No 03/24/15 10:56am Power of Jeep Driver for Health Care No 10:37pm Organ, Tissue, or Eye Donor No 10/02/11 10: 37pm Do you have a signed organ donor card? No 0 07/21/06 11:01am Chief Complaint and Reason for Visit Chief Complaint ARM PAIN Reason for Visit [id number] Problems Active Problems Medical Problem Onset Date Status Strain of left elbow Unknown Acute Medications Current Home Medications Medication Dose Units Route Directions Days/Qty Instructions Star t Date Loratadine 10 Mg 10 Mg Oral Daily 0 Glipizide 10 Mg 10 Mg Oral Twice A Day 03/25 10/01 Metformin Hcl 500 Mg 500 Mg Oral Twice A Day 04/08/10 Alprazolam 1 Mg 1 Mg Oral Twice Daily As Needed 04/08/10 Lisinopril 20 Mg 10 Mg Oral Daily 0 Acetaminophen/Hydrocodone Bitart (Lortab 7.5-325 Tab*) 1 Tab 1 Each Oral Twice A Day 04/27/14 Tramadol Hcl 50 Mg 50 Mg Oral Twice A Day 1 06/28/13 Albuterol Sulfate (Proair Hfa) 8.5 Gm 2 Puff Inhalatio n Once as needed for Prn 04/27/14 Past Home Medications Medication Directions Ordered Status Acetaminophen/Hydrocodone Bitart 1 Tab Tablet, 1 Tab Oral Tw ice Daily As Needed 04/08/10 Discontinued Hydroxyzine Hcl 10 Mg Tablet, 10 Mg Oral Daily 0 Discontinued Carisoprodol 350 Mg Tablet, 350 Mg Oral Daily 04/08/10 Discontinued Furosemide 20 Mg Tablet, 20 Mg Oral Daily 04/08/10 Discontinued Methylphenidate Hcl 10 Mg Tablet, 10 Mg Oral Daily 08/03 Discontinued Doxycycline Hyclate 100 Mg Tablet, 100 Mg Oral Twice A Day 0 10/02/11 Discontinued Methocarbamol 750 Mg Tablet, 750 Mg Oral Daily 4 Discontinued Omeprazole 20 Mg Capsule.dr, 20 Mg Oral Daily 04/27/14 Discontinued Nortriptyline Hcl 25 Mg Capsule, 50 Mg Oral Bedtime 09/05 Discontinued Sumatriptan Succinate 50 Mg Tablet, 100 Mg Oral Daily 04/27/14 Discontinued Butalbital/Acetaminophen 1 Each Tablet, 1 Tab Oral Daily 04/27/14 Discontinued Social History No social history. Hospital Discharge Instructions No hospital discharge instructions. Plan of Care Discharge Date 03/24/15 12:23pm Condition at Discharge Stable Instructions/Education Provided How to Use a Sling (GE N) Prescriptions See Medication Section Additional Instructions/Education Return to the ER if needed, for problems or concerns If pain is not much-improved within next 5-6 days, see your primary care provider, to be re-checked Wear sling for comfort, as needed Continue your usual pain medications. Functional Status Query Response Date Recorded Patient Behavior Cooperative March 24, 2015 11:07am Allergies, Adverse Reactions, Alerts Allergen Type Severity Reaction Status Last Updated Codeine Allergy Severe NAUSEA,VOMITING. Active 03/24/15 Aspirin Adverse Reaction Severe STOMACH ULCER Active 03/24 TAPES Allergy Intermediate BRIGHT RED,HARD TO REMOVED,B LISTERS,SKIN TEARS Active 04/27/14 Immunizations Name Given Type Hx Diphtheria, Pertussis, Tetanus Vaccination Up To Date Historical Hx Influenza Vaccination Yes Historical Hx Pneumococcal Vaccination No Historical Vital Signs Acute Vital Signs Vital Response Date/Time Temperature (Fahrenheit) 97.7 degrees F (97.6 - 99.5) 2014 12:23pm Temperature Source Temporal Artery 03/24/2015 12:23pm Pulse Rate (adult) 86 bpm (60 - 90) 03/24/2015 12:23pm Respiratory Rate 20 bpm (12 - 24) 03/24/2015 12:23pm Blood Pressure 105/72 mm Hg 03/24/2015 12:23pm O2 Sat by Pulse Oximetry 93 % (90 - 100) 03/24/2015 12:2 3pm Oxygen Delivery Method 03/24/2015 12:23p m Pain Intensity 10 03/24/2015 12:23pm Pain Location Body Site Modifier 015 12:23pm Pain Description Throbbing 03/24/2015 12:23pm Pain Duration > 6 Hours 03/24/2015 11:07am Height 5 ft 6 in Weight 224 lb Body Mass Index 36.0 kg/m^2 Results No known relevant diagnostic tests, laboratory data and/or discharge summary. Procedures Procedure Status Date Provider(s) X-ray of left elbow, three or more views Completed 5 AURORA PEARSON MD Encounters Encounter Location Arrival/Admit Date Discharge/Depart Date Attending Provider Departed Emergency Room [place] 03/24/15 10:57am 03/24/15 12:2 3pm AURORA PEARSON MD Recent Diagnosis
--- OUTSIDE RECORDS SUMMARY | 2019-10-27 13:40 | XMS REPORT ---
Author Author Elba Helm Doctor Organization [facility] Address Unknown Phone Unavailable Care Team Providers Care Pilot Control Operator Helper Name Role Phone Migration, Doctor Unavailable Unavailable PROBLEMS No Known Problems ALLERGIES Substance Reaction Event Type Date Status Codeine Unknown Drug Allergy Aug, Active ENCOUNTERS Encounter Location Date Diagnosis [facility] [address] [id number] [place], [place] [id number] Feb, Right ankle strain, initial encounter S9 6.911A [facility] [address] [facility] [id number] [place] [id number] Oct, Puncture wound of buttock 877.0 [facility] [address] [facility] [id number] [address] [place] [phone] Aug, [facility] [address] [facility] [id number] [address] [place] [phone] Aug, [facility] [address] [facility] [id number] [address] [place] [phone] September, [facility] [address] [facility] [id number] [address] [place] [phone] Jun, [facility] [address] [facility] [id number] [address] [place] [phone] May, [facility] [address] [facility] [id number] [place] [id number] May, IMMUNIZATIONS No Known Immunizations SOCIAL HISTORY Never Assessed REASON FOR VISIT EMR-[facility] PLAN OF CARE VITAL SIGNS MEDICATIONS Medication Instructions Dosage Frequency Start Date End Date Duration S tatus ProAir HFA 90 mcg/actuation inhale 2 puf fs by inhalation route every 4 hours as needed May, Active Vistaril 25 mg take 1 capsule by Oral route 2 times per day May, Active GlipiZIDE 10 mg take 1 tablet (10 mg ) by oral route 2 times per day before meals May, Active Loratadine 10 mg take 1 tablet (10 mg) by oral route o nce daily May, Active Soma 350 mg take 1 tablet by Oral route and at bedtim e 1 time per day May, Active Sumatriptan Succinate 100 mg take 1 tabl et (100 mg) by oral route once with fluids as early as possible after the onset of a migraine attack;may repeat after 2 hours if headache returns, not to exceed 200mg in 24hrs May, Active Lisinopril 20 mg take 1 tablet (20 mg) by oral route o nce daily May, Active Naproxen 500 mg take 1 tablet (500 m g) by oral route 2 times per day with food May, Active Alprazolam 1 mg take 1 tablet by Oral route 1 time per day May, Active Furosemide 40 mg take 1 tablet (40 mg) by oral route o nce daily May, Active Hydrocodone-Acetaminophen 7.5-325 mg jan e 1 tablet by oral route every 4 hours as needed for pain May, Active metformin 1,000 mg take 1 tablet (1,000 mg) by oral route 2 times per day with morning and evening meals May, Ac tive Omeprazole 20 mg take 1 capsule (20 m g) by oral route once daily before a meal May, Active RESULTS No Results PROCEDURES No Known procedures INSTRUCTIONS MEDICATIONS ADMINISTERED No Known Medications MEDICAL (GENERAL) HISTORY Type Description Date Medical History hypertension Medical History type II diabetes Medical History chronic pain Surgical History section Surgical History cholecystectomy Surgical History appendectomy Surgical History tubal ligation Hospitalization History Surgery(s)/Childbirth(s) only
--- OUTSIDE RECORDS SUMMARY | 2019-10-27 13:40 | XMS REPORT | Clinical Summary ---
Author Author Admin, Elba Lance [facility] Address Unknown Phone Allergies, Adverse Reactions, Alerts [...] y atherosclerosis of unspecified type of vessel, [place] or graft OTH NONSPC ABN FINDNG [...] care facility COLON POLYPS ICD-211.3 Inactive Lolis Thomas APR N Medication List Medication Instructions Start Date Stop Date Generic Name NDC Status Provider Patient Instruction HYDROCODONE-ACETAMINOPHEN 7.5-325 MG TABS Take 1 tab every 6-8 hour s PRN HYDROCODONE-ACETAMINOPHEN 36772625782 Active Baltazar Childers MD Active NORTRIPTYLINE HCL 50 MG CAPS 1 every night for neuropathy 4 NORTRIPTYLINE HCL 19160813790 Active Baltazar Childers MD Acti ve GABAPENTIN 300 MG CAPS 1 three times a day GABAPE NTIN 70172916386 Active Baltazar Childers MD Active GABAPENTIN 300 MG CAPS 1 po qd x 2 days, then 1 po BID x 2 d ays, then 1 po TID GABAPENTIN 84770899983 No Longer Active Baltazar silverman MD Active TRAMADOL HCL 50 MG TABS 1 twice a day as needed for pain TRAMADOL HCL 41406779321 Active Baltazar Childers MD Active NAPROXEN 500 MG TABS 1 tablet by mouth twice daily NAPROXEN 42140868137 No Longer Active Baltazar Childers MD Active PROAIR HFA 108 (90 BASE) MCG/ACT AERS 2 puffs four times a d ay as needed ALBUTEROL SULFATE 12014999096 Active Baltazar Childers MD Active DEPO-TESTOSTERONE 200 MG/ML OIL as directed RUFINO TOSTERONE CYPIONATE 59236581861 No Longer Active Baltazar Childers MD Active LIPITOR 20 MG TABS Take one by mouth daily in evening ATORVASTATIN CALCIUM 61199054998 No Longer Active Baltazar Childers MD Activ e CRESTOR 10 MG TABS 1 by mouth every day R OSUVASTATIN CALCIUM 76021250210 No Longer Active Baltazar Childers MD Activ e PHENTERMINE HCL 37.5 MG TABS Take one by mouth daily 2 PHENTERMINE HCL 74282862306 No Longer Active Baltazar Childers MD Activ e ROBAXIN-750 750 MG TABS Take one by mouth daily ME THOCARBAMOL 74516673436 Active Baltazar Childers MD Active TIZANIDINE HCL 4 MG TABS 1 daily as needed for muscle spasm 2011 TIZANIDINE HCL 32868548198 No Longer Active Dawna Salazar RN Active ONETOUCH ULTRA BLUE STRP Test twice a day GLUCO SE BLOOD 25297584284 Active Baltazar Childers MD Active OQFOLAAZMS-EPAL-[id number] 50-325-40 MG TABS 1 four time s a day as needed for heacache ANSSMSCDNH-OMTH-ERJKQQKS 19145206224 Active Baltazar Childers MD Active SUMATRIPTAN SUCCINATE 100 MG TABS 1 tablet by mouth at onset of migraine as needed SUMATRIPTAN SUCCINATE 29796189913 Active Shireen Miller APRN Active LORATADINE 10 MG TABS Take one by mouth daily LORATADINE 44230363989 Active Brad Hughes Active FUROSEMIDE 40 MG TABS Take one by mouth daily FUROSEMIDE 18521863334 Active Shireen Miller APRN Active LISINOPRIL 20 MG TABS Take one by mouth daily at bedtime LISINOPRIL 32688894254 Active Shireen Miller APRN Active OMEPRAZOLE 20 MG CPDR Take one by mouth daily OMEPRAZOLE 99590444259 Active Shireen Miller APRN Active HYDROXYZINE HCL 25 MG TABS Take one by mouth daily HYDROXYZINE HCL 54221266063 Active Shireen Miller APRN Active GLIPIZIDE 10 MG TABS 1 tablet by mouth twice daily GLIPIZIDE 98416225596 Active Shireen Miller APRN Active ALPRAZOLAM 1 MG TABS 1 tablet by mouth daily at bedtime for restles s leg ALPRAZOLAM 49300721366 Active Baltazar Childers MD Active METFORMIN HCL 1000 MG TABS Take one by mouth twice daily METFORMIN HCL 30956837888 Active Shireen Miller APRN Active TIZANIDINE HCL 4 MG TABS 1 daily as needed for muscle spasm 2011 TIZANIDINE HCL 4 MG TABS 294001 TIZANIDINE HCL Inactiv e PHENTERMINE HCL 37.5 MG TABS Take one by mouth daily 2 PHENTERMINE HCL 37.5 MG TABS 482153 PHENTERMINE HCL Inactive CRESTOR 10 MG TABS 1 by mouth every day C RESTOR 10 MG TABS ROSUVASTATIN CALCIUM Inactive LIPITOR 20 MG TABS Take one by mouth daily in evening LIPITOR 20 MG TABS 114759 ATORVASTATIN CALCIUM Inactive DEPO-TESTOSTERONE 200 MG/ML OIL as directed 8 DEPO-TESTOSTERONE 200 MG/ML OIL 108911 TESTOSTERONE CYPIONATE Inactive NAPROXEN 500 MG TABS 1 tablet by mouth twice daily 201 07/27/22 NAPROXEN 500 MG TABS 571021 NAPROXEN Inactive GABAPENTIN 300 MG CAPS 1 po qd x 2 days, then 1 po BID x 2 d ays, then 1 po TID GABAPENTIN 300 MG CAPS 316081 GABAPENTIN Inact amie Immunizations Vaccine Administration Date Value Standard Floyd cription pneumococcal immunization administered Pneumovax 23 [CVX33] pneumococcal polysaccharide vaccine, 23 valent Seasonal influenza vaccine, injectable, containing preservative, for > 3 years old (Afluria, FluLaval, Fluzone, Fluvirin, Fluarix, Agriflu(>= 18 yo)) Fluzone (>3 yrs.) [[id number]] Influenza, seasonal, inject able Seasonal influenza vaccine, injectable, containing preservative, for > 3 years old (Afluria, FluLaval, Fluzone, Fluvirin, Fluarix, Agriflu(>= 18 yo)) Fluzone (>3 yrs.) [[id number]] Influenza, seasonal, inject able Vital Signs Date Name Value Unit Range Description blood pressure, diastolic 79 mm[Hg] BP [place] blood pressure, systolic 127 mm[Hg] BP sys height E&M 66.5 [in_us] Bdy height pulse rate E&M 91 /min Heart rate temperature E&M 97.4 [degF] Body temp erature weight E&M 231.13 [lb_av] Weight Measure d blood pressure, diastolic 67 mm[Hg] BP [place] blood pressure, systolic 106 mm[Hg] BP sys height E&M 66.5 [in_us] Bdy height pulse rate E&M 112 /min Heart rate temperature E&M 97.6 [degF] Body temp erature weight E&M 224 [lb_av] Weight Measure d blood pressure, diastolic 73 mm[Hg] BP [place] blood pressure, systolic 103 mm[Hg] BP sys height E&M 66.5 [in_us] Bdy height pulse rate E&M 97 /min Heart rate temperature E&M 96.5 [degF] Body temp erature weight E&M 227 [lb_av] Weight Measure d blood pressure, diastolic 71 mm[Hg] BP [place] blood pressure, systolic 113 mm[Hg] BP sys height E&M 66.5 [in_us] Bdy height pulse rate E&M 89 /min Heart rate temperature E&M 97.3 [degF] Body temp erature weight E&M 232.50 [lb_av] Weight Measure d blood pressure, diastolic 70 mm[Hg] BP [place] blood pressure, systolic 122 mm[Hg] BP sys height E&M 66.5 [in_us] Bdy height pulse rate E&M 88 /min Heart rate temperature E&M 97.4 [degF] Body temp erature weight E&M 237 [lb_av] Weight Measure d blood pressure, diastolic 63 mm[Hg] BP [place] blood pressure, systolic 92 mm[Hg] BP sys height E&M 66.5 [in_us] Bdy height pulse rate E&M 94 /min Heart rate temperature E&M 97.2 [degF] Body temp erature weight E&M 240 [lb_av] Weight Measure d Diagnostic Results Date Name Value Unit Range Description Lab Report: Basic Metabolic Panel, HGBA1 C - Chemistry sodium, serum 140 mmol/L 276-564 4457/02/26 potassium, serum 5.3 mmol/L 3.5-5.2 chloride, serum 101 mmol/L 98-107 carbon dioxide, venous blood 36.9 mmol/L 21.0-32 .0 blood glucose 151 mg/dL 65-110 calcium, serum 8.7 mg/dL 8.5-10.1 urea nitrogen, blood 19 mg/dL 7-18 creatinine, serum 1.60 mg/dL 0.60-1.30 hemoglobin A1C, blood, as % of total hemoglobin 7.9 % 4.3-6.0 Lab Report: CBC, Basic Metabolic Panel, HGBA1C - Chemistry sodium, serum 138 mmol/L 602-253 2439/05/23 potassium, serum 4.9 mmol/L 3.5-5.2 chloride, serum 98 mmol/L 98-107 carbon dioxide, venous blood 28.8 mmol/L 21.0-32 .0 blood glucose 116 mg/dL 65-110 calcium, serum 9.2 mg/dL 8.5-10.1 urea nitrogen, blood 24 mg/dL 7-18 creatinine, serum 2.00 mg/dL 0.60-1.30 hemoglobin A1C, blood, as % of total hemoglobin 7.1 % 4.3-6.0 Lab Report: CBC, Basic Metabolic Panel, HGBA1C - Hematology leukocyte count, blood 6.3 UL 10*3/mm3 4.6-10.2 erythrocyte (RBC) count 3.76 UL 10*6/mm3 4.04-5.48 hemoglobin, blood 11.8 g/dL 12.0-16.0 hematocrit, blood 36.8 % 36.0-46.0 mean corpuscular volume, RBC 98 fL 80-97 mean corpuscular hemoglobin, RBC 31.4 pg 27. 0-31.2 mean corpuscular hemoglobin concentration, RBC 32.1 G/DL % 31.8-35.4 red blood cell distribution width 14.4 % 11 .6-14.8 platelet count 317 UL 10*3/mm3 142-424 Lab Report: CBC, Comp. Metabolic Panel, Lipid Panel, HGBA1C, MICROALBUMI ... - Chemistry alanine aminotransferase (SGPT), serum 76 U/L 12-78 aspartate aminotransferase (SGOT), serum 39 U/L 15-37 alkaline phosphatase, serum 62 U/L 50-136 bilirubin, serum, total 0.39 mg/dL 0.00-1.00 cholesterol, serum 345 mg/dL 467-195 4199/08/26 triglyceride, serum, fasting 635 mg/dL 30-200 HDL [...] Panel - Chemistry sodium, serum 136 mmol/L 425-446 4923/01/06 potassium, serum 5.1 mmol/L 3.5-5.2 chloride, serum [...] Report: Renal Panel - Chemistry sodium, serum 139 mmol/L 415-474 5608/08/26 potassium, serum 5.8 mmol/L 3.5-5.2 chloride, serum 98 mmol/L 98-107 carbon dioxide, venous blood 33.0 mmol/L 21.0-32 .0 blood glucose 107 mg/dL 65-110 urea nitrogen, blood 26 mg/dL 7-18 creatinine, serum 1.80 mg/dL 0.60-1.30 calcium, serum 9.3 mg/dL 8.5-10.1 sodium, serum 138 mmol/L 705-611 9520/06/17 potassium, serum 4.9 mmol/L 3.5-5.2 chloride, serum 100 mmol/L 98-107 carbon dioxide, venous blood 28.1 mmol/L 21.0-32 .0 blood glucose 108 mg/dL 65-110 urea nitrogen, blood 20 mg/dL 7-18 creatinine, serum 1.60 mg/dL 0.60-1.30 calcium, serum 9.5 mg/dL 8.5-10.1 Lab Report: UADIP W/MICRO, AUTO - Chemis try protein, total urine random Negative mg/dL Negative RBC, urine, dipstick Negative Negative protein, total urine random Negative mg/dL Negative RBC, urine, dipstick Negative Negative Lab Report: UADIP W/MICRO, AUTO - Urinal ysis urobilinogen, urine, semiquantitative (dipstick) 0.2 Normal leukocyte esterase, urine, by dipstick Negative Negative nitrite, urine, semiquantitative Negative Neg ative glucose, urine, semiquantitative Negative Neg ative ketones, urine, by test strip Negative Negati ve bilirubin, urine Negative Negative urine color Straw Colorless;Lightyellow;St raw;Yellow appearance, urine Clear Clear specific gravity, urine 1.010 1.000-1.030 pH, urine, semiquantitative 6.0 5.0-8.5 urobilinogen, urine, semiquantitative (dipstick) 0.2 Normal leukocyte esterase, urine, by dipstick Negative Negative nitrite, urine, semiquantitative Negative Neg ative glucose, urine, semiquantitative Negative Neg ative ketones, urine, by test strip Negative Negati ve bilirubin, urine Negative Negative urine color Light yellow Colorless;Lightyellow; Straw;Yellow appearance, urine Clear Clear specific gravity, urine 1.010 1.000-1.030 pH, urine, semiquantitative 5.5 5.0-8.5 Office Visit: med check - Chemistry [...] mg/dL Encounters Code Encounter Date Provider Facility CPT-74064 Level 4 Est. Patient 14:52:45 CODE NUMBER STAMPER Baltazar Childers MD [facility] CPT-83412 Level 4 Est. Patient 14:18:34 CODE NUMBER STAMPER Baltazar Childers MD [facility] CPT-90217 Level 4 Est. Patient 15:18:29 CDT Baltazar Childers MD [facility] CPT-06647 Level 3 Est. Patient 12:45:34 CDT Baltazar Childers MD [facility] CPT-26336 Level 3 Est. Patient 10:10:11 CDT Baltazar Childers MD [facility] CPT-95059 Level 3 Est. Patient 14:07:50 CDT Baltazar Childers MD [facility] CPT-12374 Level 4 Est. Patient 12:26:10 CODE NUMBER STAMPER Baltazar Childers MD [facility] CPT-81919 Level 4 Est. Patient 14:45:38 CDT Baltazar Childers MD [facility] CPT-29244 Level 4 New Patient 12:30:48 CDT Baltazar hinton MD [facility] Procedures Code Procedure Name Date Entry Date Standard Desc ription CPT-51650 First Vx Component - Ix admi n via ID IM or jet inj without physician counseling 15:17:19 CODE NUMBER STAMPER CPT-37176 Pneumovax 15:17:19 CODE NUMBER STAMPER CPT-25995 Pneumovax 14:52:45 CODE NUMBER STAMPER CPT-97989 Venipuncture Draw Fee 14:06:30 CODE NUMBER STAMPER CPT-000 Give Appropriate Flu Vaccine 14:18:34 CODE NUMBER STAMPER 2 CPT-38533 Administration single or combination vac cine inc oral 14:46:00 CODE NUMBER STAMPER CPT-94625 Influenza split virus > age 3 14:46:00 CODE NUMBER STAMPER CPT-OV Office Visit 19:13:16 CDT CPT-33795 Zostavax 18:41:56 CDT CPT-92936 Administration single or combination vac cine inc oral 12:56:39 CDT CPT-35469 Zoster Vaccine (Zostavax) 12:56:39 CDT 2012 CPT-57909 Venipuncture Draw Fee 10:58:57 CDT CPT-86620 Sono pelvis non OB uterus ovaries cervix 17:45:04 CDT CPT-90234 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
--- OUTSIDE RECORDS SUMMARY | 2019-10-27 13:40 | XMS REPORT | Continuity of Care Document ---
Author Author [facility] Organization [facility] Address [facility] [address] [place] [address] Phone Unavailable Support Name Relationship Address Phone JOSE COFFEY MD Caregiver [address] [place] [address] Unavailable CINDY CROSS MD Caregiver [address] [place] [address] Unavailable JEANNE GARCIA Next Of Kin [address] [place] [address] Insurance Providers Payer Name Policy Number Subscriber Name Relationship [facility] [id number] Elba Garcia 17 Self / Royer e As Patient Advance Directives Directive Response Recorded Date/Time Do you have an Advanced Directive? No 07/21 11:01am Advance Directives No 10/02/11 10:37pm Living Will No 10/02/11 10:37pm Health Care Proxy No 05/13/15 6:44pm Power of Filling Machine Operator for Health Care No 10:37pm Organ, Tissue, or Eye Donor No 10/02/11 10: 37pm Do you have a signed organ donor card? No 0 07/21/06 11:01am Chief Complaint and Reason for Visit Chief Complaint SORE THROAT Reason for Visit [id number] Viral pharyngitis Problems Active Problems Medical Problem Onset Date Status Strain of left elbow Unknown Acute URI, acute Unknown Acute Viral pharyngitis Unknown Acute Medications Current Home Medications Medication [...] n Once as needed for Prn 04/27/14 Pseudoephedrine Hcl 120 Mg 120 Mg Oral Two Times Daily As Ne eded 20 05/13/15 Past Home Medications Medication Directions Ordered Status [...] Tab Oral Daily 04/27/14 Discontinued Social History Social History Problem Response Recorded Date/Jermaine e Smoking Status Former smoker 03/24/2015 12:29pm Query Response Start Date Stop Date Smoking Status Former smoker Hospital Discharge Instructions No hospital discharge instructions. Plan of Care Discharge Date 05/13/15 7:45pm Condition at Discharge Stable Instructions/Education Provided Upper Respiratory Infe ction (ED) Prescriptions See Medication Section Additional Instructions/Education follow up with your primary care physician in 3-5 days. Functional Status Query Response Date Recorded Patient Behavior Appropriate May 13, 2015 6:55pm Allergies, Adverse Reactions, Alerts Allergen Type Severity [...] Vital Signs Vital Response Date/Time Temperature (Fahrenheit) 98.8 degrees F (97.6 - 99.5) 2014 7:43pm Temperature Source Temporal Artery 05/13/2015 7:43pm Pulse Rate (adult) 109 bpm (60 - 90) 05/13/2015 7:43pm Respiratory Rate 20 bpm (12 - 24) 05/13/2015 7:43pm Blood Pressure 135/82 mm Hg 05/13/2015 7:43pm O2 Sat by Pulse Oximetry 98 % (90 - 100) 05/13/2015 7:43 pm Oxygen Delivery Method 05/13/2015 7:43pm Pain Intensity 10 03/24/2015 12:23pm Pain Location Body Site Modifier 015 12:23pm Pain Description Throbbing 03/24/2015 12:23pm Pain Duration > 6 Hours 03/24/2015 11:07am Height 5 ft 6 in Weight 224 lb Body Mass Index 36.0 kg/m^2 Results No known relevant diagnostic tests, laboratory data and/or discharge summary. Procedures Procedure Status Date Provider(s) X-ray of left elbow, three or more views Active 5 AURORA PEARSON MD Encounters Encounter Location Arrival/Admit Date Discharge/Depart Date Attending Provider Departed Emergency Room [place] 05/13/15 6:48pm 05/13/15 7:45p m CINDY CROSS MD Departed Emergency Room [place] 03/24/15 10:57am 03/24/15 12:2 3pm AURORA PEARSON MD Recent Diagnosis
--- OUTSIDE RECORDS SUMMARY | 2019-10-27 13:41 | XMS REPORT | Clinical Summary ---
Author Author Admin, Elba Lance [facility] Address Unknown Phone Allergies, Adverse Reactions, Alerts [...] y atherosclerosis of unspecified type of vessel, [place] or graft OTH NONSPC ABN FINDNG RAD&OTH [...] tab every 6-8 hour s PRN HYDROCODONE-ACETAMINOPHEN 75328370188 Active Baltazar Childers MD Active NORTRIPTYLINE HCL 50 MG CAPS 1 every night for neuropathy 4 NORTRIPTYLINE HCL 22413240633 Active Baltazar Childers MD Acti ve GABAPENTIN 300 MG CAPS 1 three times a day GABAPE NTIN 40058970753 Active Baltazar Childers MD Active GABAPENTIN 300 MG CAPS 1 po qd x 2 days, then 1 po BID x 2 d ays, then 1 po TID GABAPENTIN 52492831782 No Longer Active Baltazar silverman MD Active TRAMADOL HCL 50 MG TABS 1 twice a day as needed for pain TRAMADOL HCL 01360346836 Active Baltazar Childers MD Active NAPROXEN 500 MG TABS 1 tablet by mouth twice daily NAPROXEN 76754685859 No Longer Active Baltazar Childers MD Active PROAIR HFA 108 (90 BASE) MCG/ACT AERS 2 puffs four times a d ay as needed ALBUTEROL SULFATE 18908168470 Active Baltazar Childers MD Active DEPO-TESTOSTERONE 200 MG/ML OIL as directed RUFINO TOSTERONE CYPIONATE 46029885026 No Longer Active Baltazar Childers MD Active LIPITOR 20 MG TABS Take one by mouth daily in evening ATORVASTATIN CALCIUM 80596103798 No Longer Active Baltazar Childers MD Activ e CRESTOR 10 MG TABS 1 by mouth every day R OSUVASTATIN CALCIUM 16864199311 No Longer Active Baltazar Childers MD Activ e PHENTERMINE HCL 37.5 MG TABS Take one by mouth daily 2 PHENTERMINE HCL 85257427521 No Longer Active Baltazar Childers MD Activ e ROBAXIN-750 750 MG TABS Take one by mouth daily ME THOCARBAMOL 88271541027 Active Baltazar Childers MD Active TIZANIDINE HCL 4 MG TABS 1 daily as needed for muscle spasm 2011 TIZANIDINE HCL 33586471412 No Longer Active Dawna Salazar RN Active ONETOUCH ULTRA BLUE STRP Test twice a day GLUCO SE BLOOD 62528830604 Active Baltazar Childers MD Active [id number] 50-325-40 MG TABS 1 four time s a day as needed for heacache [id number] 96335463652 Active Baltazar Childers MD Active SUMATRIPTAN SUCCINATE 100 MG TABS 1 tablet by mouth at onset of migraine as needed SUMATRIPTAN SUCCINATE 03067944732 Active Shireen Miller APRN Active LORATADINE 10 MG TABS Take one by mouth daily LORATADINE 02496984518 Active Brad Hughes Active FUROSEMIDE 40 MG TABS Take one by mouth daily FUROSEMIDE 75047141916 Active Shireen Miller APRN Active LISINOPRIL 20 MG TABS Take one by mouth daily at bedtime LISINOPRIL 80884087827 Active Shireen Miller APRN Active OMEPRAZOLE 20 MG CPDR Take one by mouth daily OMEPRAZOLE 75309396827 Active Shireen Miller APRN Active HYDROXYZINE HCL 25 MG TABS Take one by mouth daily HYDROXYZINE HCL 56929708271 Active Shireen Miller APRN Active GLIPIZIDE 10 MG TABS 1 tablet by mouth twice daily GLIPIZIDE 90358536715 Active Shireen Miller APRN Active ALPRAZOLAM 1 MG TABS 1 tablet by mouth daily at bedtime for restles s leg ALPRAZOLAM 55768601784 Active Baltazar Childers MD Active METFORMIN HCL 1000 MG TABS Take one by mouth twice daily METFORMIN HCL 52095881382 Active Shireen Miller APRN Active TIZANIDINE HCL 4 MG TABS 1 daily as needed for muscle spasm 2011 TIZANIDINE HCL 4 MG TABS 828776 TIZANIDINE HCL Inactiv e PHENTERMINE HCL 37.5 MG TABS Take one by mouth daily 2 PHENTERMINE HCL 37.5 MG TABS 004041 PHENTERMINE HCL Inactive CRESTOR 10 MG TABS 1 by mouth every day C RESTOR 10 MG TABS ROSUVASTATIN CALCIUM Inactive LIPITOR 20 MG TABS Take one by mouth daily in evening LIPITOR 20 MG TABS 131988 ATORVASTATIN CALCIUM Inactive DEPO-TESTOSTERONE 200 MG/ML OIL as directed 8 DEPO-TESTOSTERONE 200 MG/ML OIL 672745 TESTOSTERONE CYPIONATE Inactive NAPROXEN 500 MG TABS 1 tablet by mouth twice daily 201 07/27/22 NAPROXEN 500 MG TABS 731685 NAPROXEN Inactive GABAPENTIN 300 MG CAPS 1 po qd x 2 days, then 1 po BID x 2 d ays, then 1 po TID GABAPENTIN 300 MG CAPS 703496 GABAPENTIN Inact amie Immunizations Vaccine Administration Date Value Standard Floyd cription pneumococcal immunization administered Pneumovax 23 [CVX33] pneumococcal polysaccharide vaccine, 23 valent Seasonal influenza vaccine, injectable, containing preservative, for > 3 years old (Afluria, FluLaval, Fluzone, Fluvirin, Fluarix, Agriflu(>= 18 yo)) Fluzone (>3 yrs.) [IRO014] Influenza, seasonal, inject able Seasonal influenza vaccine, injectable, containing preservative, for > 3 years old (Afluria, FluLaval, Fluzone, Fluvirin, Fluarix, Agriflu(>= 18 yo)) Fluzone (>3 yrs.) [AAD009] Influenza, seasonal, inject able Vital Signs Date [...] C - Chemistry sodium, serum 140 mmol/L 757-845 1634/02/26 potassium, serum 5.3 mmol/L 3.5-5.2 chloride, serum 101 mmol/L 98-107 carbon dioxide, venous blood 36.9 mmol/L 21.0-32 .0 blood glucose 151 mg/dL 65-110 calcium, serum 8.7 mg/dL 8.5-10.1 urea nitrogen, blood 19 mg/dL 7-18 creatinine, serum 1.60 mg/dL 0.60-1.30 hemoglobin A1C, blood, as % of total hemoglobin 7.9 % 4.3-6.0 Lab Report: CBC, Basic Metabolic Panel, HGBA1C - Chemistry sodium, serum 138 mmol/L 651-391 7886/05/23 potassium, serum 4.9 mmol/L 3.5-5.2 chloride, serum [...] 0.39 mg/dL 0.00-1.00 cholesterol, serum 345 mg/dL 398-153 3995/08/26 triglyceride, serum, fasting 635 mg/dL 30-200 HDL [...] Panel - Chemistry sodium, serum 136 mmol/L 753-201 7723/01/06 potassium, serum 5.1 mmol/L 3.5-5.2 chloride, serum [...] Panel - Chemistry sodium, serum 139 mmol/L 491-687 1070/08/26 potassium, serum 5.8 mmol/L 3.5-5.2 chloride, serum 98 mmol/L 98-107 carbon dioxide, venous blood 33.0 mmol/L 21.0-32 .0 blood glucose 107 mg/dL 65-110 urea nitrogen, blood 26 mg/dL 7-18 creatinine, serum 1.80 mg/dL 0.60-1.30 calcium, serum 9.3 mg/dL 8.5-10.1 sodium, serum 138 mmol/L 794-372 6070/06/17 potassium, serum 4.9 mmol/L 3.5-5.2 chloride, serum [...] mg/dL Encounters Code Encounter Date Provider Facility CPT-59922 Level 4 Est. Patient 14:52:45 IRONING WORKER Baltazar Childers MD [facility] CPT-80260 Level 4 Est. Patient 14:18:34 IRONING WORKER Baltazar Childers MD [facility] CPT-20769 Level 4 Est. Patient 15:18:29 CDT Baltazar Childers MD [facility] CPT-91101 Level 3 Est. Patient 12:45:34 CDT Baltazar Childers MD [facility] CPT-46787 Level 3 Est. Patient 10:10:11 CDT Baltazar Childers MD [facility] CPT-96265 Level 3 Est. Patient 14:07:50 CDT Baltazar Childers MD [facility] CPT-58448 Level 4 Est. Patient 12:26:10 IRONING WORKER Baltazar Childers MD [facility] CPT-95758 Level 4 Est. Patient 14:45:38 CDT Baltazar Childers MD [facility] CPT-44472 Level 4 New Patient 12:30:48 CDT Baltazar hinton MD [facility] Procedures Code Procedure Name Date Entry Date Standard Desc ription CPT-53227 First Vx Component - Ix admi n via ID IM or jet inj without physician counseling 15:17:19 IRONING WORKER CPT-30296 Pneumovax 15:17:19 IRONING WORKER CPT-46855 Pneumovax 14:52:45 IRONING WORKER CPT-27424 Venipuncture Draw Fee 14:06:30 IRONING WORKER CPT-000 Give Appropriate Flu Vaccine 14:18:34 IRONING WORKER 2 CPT-04358 Administration single or combination vac cine inc oral 14:46:00 IRONING WORKER CPT-50772 Influenza split virus > age 3 14:46:00 IRONING WORKER CPT-OV Office Visit 19:13:16 CDT CPT-69095 Zostavax 18:41:56 CDT CPT-56246 Administration single or combination vac cine inc oral 12:56:39 CDT CPT-11202 Zoster Vaccine (Zostavax) 12:56:39 CDT 2012 CPT-22854 Venipuncture Draw Fee 10:58:57 CDT CPT-21081 Sono pelvis non OB uterus ovaries cervix 17:45:04 CDT CPT-67585 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
--- OUTSIDE RECORDS SUMMARY | 2019-10-27 13:41 | XMS REPORT | Clinical Summary ---
Author Author Admin, Elba Lance [facility] Address Unknown Phone Allergies, Adverse Reactions, [...] y atherosclerosis of unspecified type of vessel, [place] or graft OTH NONSPC ABN FINDNG [...] tab every 6-8 hour s PRN HYDROCODONE-ACETAMINOPHEN 19251754941 Active Baltazar Childers MD Active NORTRIPTYLINE HCL 50 MG CAPS 1 every night for neuropathy 4 NORTRIPTYLINE HCL 63624967339 Active Baltazar Childers MD Acti ve GABAPENTIN 300 MG CAPS 1 three times a day GABAPE NTIN 15992419960 Active Baltazar Childers MD Active GABAPENTIN 300 MG CAPS 1 po qd x 2 days, then 1 po BID x 2 d ays, then 1 po TID GABAPENTIN 72316719788 No Longer Active Baltazar silverman MD Active TRAMADOL HCL 50 MG TABS 1 twice a day as needed for pain TRAMADOL HCL 44114457214 Active Baltazar Childers MD Active NAPROXEN 500 MG TABS 1 tablet by mouth twice daily NAPROXEN 46422162335 No Longer Active Baltazar Childers MD Active PROAIR HFA 108 (90 BASE) MCG/ACT AERS 2 puffs four times a d ay as needed ALBUTEROL SULFATE 05071686338 Active Baltazar Childers MD Active DEPO-TESTOSTERONE 200 MG/ML OIL as directed RUFINO TOSTERONE CYPIONATE 42906865533 No Longer Active Baltazar Childers MD Active LIPITOR 20 MG TABS Take one by mouth daily in evening ATORVASTATIN CALCIUM 23090192228 No Longer Active Baltazar Childers MD Activ e CRESTOR 10 MG TABS 1 by mouth every day R OSUVASTATIN CALCIUM 01199440794 No Longer Active Baltazar Childers MD Activ e PHENTERMINE HCL 37.5 MG TABS Take one by mouth daily 2 PHENTERMINE HCL 07044484448 No Longer Active Baltazar Childers MD Activ e ROBAXIN-750 750 MG TABS Take one by mouth daily ME THOCARBAMOL 77284430314 Active Baltazar Childers MD Active TIZANIDINE HCL 4 MG TABS 1 daily as needed for muscle spasm 2011 TIZANIDINE HCL 40442677239 No Longer Active Dawna Salazar RN Active ONETOUCH ULTRA BLUE STRP Test twice a day GLUCO SE BLOOD 67151370225 Active Baltazar Childers MD Active [id number] 50-325-40 MG TABS 1 four time s a day as needed for heacache [id number]-[id number] 31967296422 Active Baltazar Childers MD Active SUMATRIPTAN SUCCINATE 100 MG TABS 1 tablet by mouth at onset of migraine as needed SUMATRIPTAN SUCCINATE 12938570842 Active Shireen Miller APRN Active LORATADINE 10 MG TABS Take one by mouth daily LORATADINE 96901928992 Active Brad Hughes Active FUROSEMIDE 40 MG TABS Take one by mouth daily FUROSEMIDE 98390899114 Active Shireen Miller APRN Active LISINOPRIL 20 MG TABS Take one by mouth daily at bedtime LISINOPRIL 81753882021 Active Shireen Miller APRN Active OMEPRAZOLE 20 MG CPDR Take one by mouth daily OMEPRAZOLE 37848438119 Active Shireen Miller APRN Active HYDROXYZINE HCL 25 MG TABS Take one by mouth daily HYDROXYZINE HCL 97147989457 Active Shireen Miller APRN Active GLIPIZIDE 10 MG TABS 1 tablet by mouth twice daily GLIPIZIDE 20477653920 Active Shireen Miller APRN Active ALPRAZOLAM 1 MG TABS 1 tablet by mouth daily at bedtime for restles s leg ALPRAZOLAM 52141228587 Active Baltazar Childers MD Active METFORMIN HCL 1000 MG TABS Take one by mouth twice daily METFORMIN HCL 74513801907 Active Shireen Miller APRN Active TIZANIDINE HCL 4 MG TABS 1 daily as needed for muscle spasm 2011 TIZANIDINE HCL 4 MG TABS 618726 TIZANIDINE HCL Inactiv e PHENTERMINE HCL 37.5 MG TABS Take one by mouth daily 2 PHENTERMINE HCL 37.5 MG TABS 319578 PHENTERMINE HCL Inactive CRESTOR 10 MG TABS 1 by mouth every day C RESTOR 10 MG TABS ROSUVASTATIN CALCIUM Inactive LIPITOR 20 MG TABS Take one by mouth daily in evening LIPITOR 20 MG TABS 368107 ATORVASTATIN CALCIUM Inactive DEPO-TESTOSTERONE 200 MG/ML OIL as directed 8 DEPO-TESTOSTERONE 200 MG/ML OIL 035234 TESTOSTERONE CYPIONATE Inactive NAPROXEN 500 MG TABS 1 tablet by mouth twice daily 201 07/27/22 NAPROXEN 500 MG TABS 162623 NAPROXEN Inactive GABAPENTIN 300 MG CAPS 1 po qd x 2 days, then 1 po BID x 2 d ays, then 1 po TID GABAPENTIN 300 MG CAPS 894693 GABAPENTIN Inact amie Immunizations Vaccine Administration Date Value Standard Floyd cription pneumococcal immunization administered Pneumovax 23 [CVX33] pneumococcal polysaccharide vaccine, 23 valent Seasonal influenza vaccine, injectable, containing preservative, for > 3 years old (Afluria, FluLaval, Fluzone, Fluvirin, Fluarix, Agriflu(>= 18 yo)) Fluzone (>3 yrs.) [XLY413] Influenza, seasonal, inject able Seasonal influenza vaccine, injectable, containing preservative, for > 3 years old (Afluria, FluLaval, Fluzone, Fluvirin, Fluarix, Agriflu(>= 18 yo)) Fluzone (>3 yrs.) [HVO363] Influenza, seasonal, inject able Vital Signs Date [...] C - Chemistry sodium, serum 140 mmol/L 234-938 8663/02/26 potassium, serum 5.3 mmol/L 3.5-5.2 chloride, serum 101 mmol/L 98-107 carbon dioxide, venous blood 36.9 mmol/L 21.0-32 .0 blood glucose 151 mg/dL 65-110 calcium, serum 8.7 mg/dL 8.5-10.1 urea nitrogen, blood 19 mg/dL 7-18 creatinine, serum 1.60 mg/dL 0.60-1.30 hemoglobin A1C, blood, as % of total hemoglobin 7.9 % 4.3-6.0 Lab Report: CBC, Basic Metabolic Panel, HGBA1C - Chemistry sodium, serum 138 mmol/L 363-484 4587/05/23 potassium, serum 4.9 mmol/L 3.5-5.2 chloride, serum [...] 0.39 mg/dL 0.00-1.00 cholesterol, serum 345 mg/dL 144-558 8187/08/26 triglyceride, serum, fasting 635 mg/dL 30-200 HDL [...] Panel - Chemistry sodium, serum 136 mmol/L 365-391 0549/01/06 potassium, serum 5.1 mmol/L 3.5-5.2 chloride, serum [...] Panel - Chemistry sodium, serum 139 mmol/L 491-738 5469/08/26 potassium, serum 5.8 mmol/L 3.5-5.2 chloride, serum 98 mmol/L 98-107 carbon dioxide, venous blood 33.0 mmol/L 21.0-32 .0 blood glucose 107 mg/dL 65-110 urea nitrogen, blood 26 mg/dL 7-18 creatinine, serum 1.80 mg/dL 0.60-1.30 calcium, serum 9.3 mg/dL 8.5-10.1 sodium, serum 138 mmol/L 277-680 9295/06/17 potassium, serum 4.9 mmol/L 3.5-5.2 chloride, serum [...] mg/dL Encounters Code Encounter Date Provider Facility CPT-56976 Level 4 Est. 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 Patient 14:18:34 SPIRITUAL CARE COORDINATOR Baltazar Childers MD [facility] CPT-58381 Level 4 Est. Patient 15:18:29 CDT Baltazar Childers MD [facility] CPT-72812 Level 3 Est. Patient 12:45:34 CDT Baltazar Childers MD [facility] CPT-77441 Level 3 Est. Patient 10:10:11 CDT Baltazar Childers MD [facility] CPT-94243 Level 3 Est. Patient 14:07:50 CDT Baltazar Childers MD [facility] CPT-14606 Level 4 Est. Patient 12:26:10 SPIRITUAL CARE COORDINATOR Baltazar Childers MD [facility] CPT-93266 Level 4 Est. Patient 14:45:38 CDT Baltazar Childers MD [facility] CPT-04976 Level 4 New Patient 12:30:48 CDT Baltazar hinton MD [facility] Procedures Code Procedure Name Date Entry Date Standard Desc ription CPT-09007 First Vx Component - Ix admi n via ID IM or jet inj without physician counseling 15:17:19 SPIRITUAL CARE COORDINATOR CPT-92913 Pneumovax 15:17:19 SPIRITUAL CARE COORDINATOR CPT-54885 Pneumovax 14:52:45 SPIRITUAL CARE COORDINATOR CPT-34578 Venipuncture Draw Fee 14:06:30 SPIRITUAL CARE COORDINATOR CPT-000 Give Appropriate Flu Vaccine 14:18:34 SPIRITUAL CARE COORDINATOR 2 CPT-61810 Administration single or combination vac cine inc oral 14:46:00 SPIRITUAL CARE COORDINATOR CPT-28392 Influenza split virus > age 3 14:46:00 SPIRITUAL CARE COORDINATOR CPT-OV Office Visit 19:13:16 CDT CPT-92958 Zostavax 18:41:56 CDT CPT-06691 Administration single or combination vac cine inc oral 12:56:39 CDT CPT-68721 Zoster Vaccine (Zostavax) 12:56:39 CDT 2012 CPT-22570 Venipuncture Draw Fee 10:58:57 CDT CPT-01715 Sono pelvis non OB uterus ovaries cervix 17:45:04 CDT CPT-55836 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
--- OUTSIDE RECORDS SUMMARY | 2019-10-27 13:41 | XMS REPORT | Clinical Summary ---
Author Author Admin, Elba Lance [facility] Address Unknown Phone Allergies, Adverse Reactions, Alerts [...] y atherosclerosis of unspecified type of vessel, [place] or graft OTH NONSPC ABN FINDNG RAD&OTH [...] tab every 6-8 hour s PRN HYDROCODONE-ACETAMINOPHEN 99993387794 Active Baltazar Childers MD Active NORTRIPTYLINE HCL 50 MG CAPS 1 every night for neuropathy 4 NORTRIPTYLINE HCL 70170287527 Active Baltazar Childers MD Acti ve GABAPENTIN 300 MG CAPS 1 three times a day GABAPE NTIN 97260396821 Active Baltazar Childers MD Active GABAPENTIN 300 MG CAPS 1 po qd x 2 days, then 1 po BID x 2 d ays, then 1 po TID GABAPENTIN 50575741496 No Longer Active Baltazar silverman MD Active TRAMADOL HCL 50 MG TABS 1 twice a day as needed for pain TRAMADOL HCL 42692628448 Active Baltazar Childers MD Active NAPROXEN 500 MG TABS 1 tablet by mouth twice daily NAPROXEN 21200416900 No Longer Active Baltazar Childers MD Active PROAIR HFA 108 (90 BASE) MCG/ACT AERS 2 puffs four times a d ay as needed ALBUTEROL SULFATE 22106772903 Active Baltazar Childers MD Active DEPO-TESTOSTERONE 200 MG/ML OIL as directed RUFINO TOSTERONE CYPIONATE 38673495125 No Longer Active Baltazar Childers MD Active LIPITOR 20 MG TABS Take one by mouth daily in evening ATORVASTATIN CALCIUM 93354500264 No Longer Active Baltazar Childers MD Activ e CRESTOR 10 MG TABS 1 by mouth every day R OSUVASTATIN CALCIUM 16808757549 No Longer Active Baltazar Childers MD Activ e PHENTERMINE HCL 37.5 MG TABS Take one by mouth daily 2 PHENTERMINE HCL 83860327529 No Longer Active Baltazar Childers MD Activ e ROBAXIN-750 750 MG TABS Take one by mouth daily ME THOCARBAMOL 73921587295 Active Baltazar Childers MD Active TIZANIDINE HCL 4 MG TABS 1 daily as needed for muscle spasm 2011 TIZANIDINE HCL 43709354394 No Longer Active Dawna Salazar RN Active ONETOUCH ULTRA BLUE STRP Test twice a day GLUCO SE BLOOD 89424446162 Active Baltazar Childers MD Active [id number] 50-325-40 MG TABS 1 four time s a day as needed for heacache [id number] 26439176988 Active Baltazar Childers MD Active SUMATRIPTAN SUCCINATE 100 MG TABS 1 tablet by mouth at onset of migraine as needed SUMATRIPTAN SUCCINATE 79775533224 Active Shireen Miller APRN Active LORATADINE 10 MG TABS Take one by mouth daily LORATADINE 03232907917 Active Brad Hughes Active FUROSEMIDE 40 MG TABS Take one by mouth daily FUROSEMIDE 26342264438 Active Shireen Miller APRN Active LISINOPRIL 20 MG TABS Take one by mouth daily at bedtime LISINOPRIL 12590352964 Active Shireen Miller APRN Active OMEPRAZOLE 20 MG CPDR Take one by mouth daily OMEPRAZOLE 28676731278 Active Shireen Miller APRN Active HYDROXYZINE HCL 25 MG TABS Take one by mouth daily HYDROXYZINE HCL 99861050063 Active Shireen Miller APRN Active GLIPIZIDE 10 MG TABS 1 tablet by mouth twice daily GLIPIZIDE 15938767830 Active Shireen Miller APRN Active ALPRAZOLAM 1 MG TABS 1 tablet by mouth daily at bedtime for restles s leg ALPRAZOLAM 42392157142 Active Baltazar Childers MD Active METFORMIN HCL 1000 MG TABS Take one by mouth twice daily METFORMIN HCL 02829506821 Active Shireen Miller APRN Active TIZANIDINE HCL 4 MG TABS 1 daily as needed for muscle spasm 2011 TIZANIDINE HCL 4 MG TABS 534722 TIZANIDINE HCL Inactiv e PHENTERMINE HCL 37.5 MG TABS Take one by mouth daily 2 PHENTERMINE HCL 37.5 MG TABS 197485 PHENTERMINE HCL Inactive CRESTOR 10 MG TABS 1 by mouth every day C RESTOR 10 MG TABS ROSUVASTATIN CALCIUM Inactive LIPITOR 20 MG TABS Take one by mouth daily in evening LIPITOR 20 MG TABS 510540 ATORVASTATIN CALCIUM Inactive DEPO-TESTOSTERONE 200 MG/ML OIL as directed 8 DEPO-TESTOSTERONE 200 MG/ML OIL 245373 TESTOSTERONE CYPIONATE Inactive NAPROXEN 500 MG TABS 1 tablet by mouth twice daily 201 07/27/22 NAPROXEN 500 MG TABS 036830 NAPROXEN Inactive GABAPENTIN 300 MG CAPS 1 po qd x 2 days, then 1 po BID x 2 d ays, then 1 po TID GABAPENTIN 300 MG CAPS 097408 GABAPENTIN Inact amie Immunizations Vaccine Administration Date Value Standard Floyd cription pneumococcal immunization administered Pneumovax 23 [CVX33] pneumococcal polysaccharide vaccine, 23 valent Seasonal influenza vaccine, injectable, containing preservative, for > 3 years old (Afluria, FluLaval, Fluzone, Fluvirin, Fluarix, Agriflu(>= 18 yo)) Fluzone (>3 yrs.) [GMP200] Influenza, seasonal, inject able Seasonal influenza vaccine, injectable, containing preservative, for > 3 years old (Afluria, FluLaval, Fluzone, Fluvirin, Fluarix, Agriflu(>= 18 yo)) Fluzone (>3 yrs.) [EVU674] Influenza, seasonal, inject able Vital Signs Date [...] C - Chemistry sodium, serum 140 mmol/L 350-578 6240/02/26 potassium, serum 5.3 mmol/L 3.5-5.2 chloride, serum 101 mmol/L 98-107 carbon dioxide, venous blood 36.9 mmol/L 21.0-32 .0 blood glucose 151 mg/dL 65-110 calcium, serum 8.7 mg/dL 8.5-10.1 urea nitrogen, blood 19 mg/dL 7-18 creatinine, serum 1.60 mg/dL 0.60-1.30 hemoglobin A1C, blood, as % of total hemoglobin 7.9 % 4.3-6.0 Lab Report: CBC, Basic Metabolic Panel, HGBA1C - Chemistry sodium, serum 138 mmol/L 782-729 1045/05/23 potassium, serum 4.9 mmol/L 3.5-5.2 chloride, serum [...] 0.39 mg/dL 0.00-1.00 cholesterol, serum 345 mg/dL 216-739 3968/08/26 triglyceride, serum, fasting 635 mg/dL 30-200 HDL [...] Panel - Chemistry sodium, serum 136 mmol/L 632-444 7893/01/06 potassium, serum 5.1 mmol/L 3.5-5.2 chloride, serum [...] Panel - Chemistry sodium, serum 139 mmol/L 159-746 0618/08/26 potassium, serum 5.8 mmol/L 3.5-5.2 chloride, serum 98 mmol/L 98-107 carbon dioxide, venous blood 33.0 mmol/L 21.0-32 .0 blood glucose 107 mg/dL 65-110 urea nitrogen, blood 26 mg/dL 7-18 creatinine, serum 1.80 mg/dL 0.60-1.30 calcium, serum 9.3 mg/dL 8.5-10.1 sodium, serum 138 mmol/L 373-191 5390/06/17 potassium, serum 4.9 mmol/L 3.5-5.2 chloride, serum [...] mg/dL Encounters Code Encounter Date Provider Facility CPT-77156 Level 4 Est. 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 Patient 14:18:34 [employer] AND [employer] AND REPAIRER Baltazar Childers MD [facility] CPT-09989 Level 4 Est. Patient 15:18:29 CDT Baltazar Childers MD [facility] CPT-44374 Level 3 Est. Patient 12:45:34 CDT Baltazar Childers MD [facility] CPT-91054 Level 3 Est. Patient 10:10:11 CDT Baltazar Childers MD [facility] CPT-50000 Level 3 Est. Patient 14:07:50 CDT Baltazar Childers MD [facility] CPT-44267 Level 4 Est. Patient 12:26:10 [employer] AND [employer]KER AND REPAIRER Baltazar Childers MD [facility] CPT-47421 Level 4 Est. Patient 14:45:38 CDT Baltazar Childers MD [facility] CPT-72743 Level 4 New Patient 12:30:48 CDT Baltazar hinton MD [facility] Procedures Code Procedure Name Date Entry Date Standard Desc ription CPT-69447 First Vx Component - Ix admi n via ID IM or jet inj without physician counseling 15:17:19 [employer] AND [employer]ER AND REPAIRER CPT-68408 Pneumovax 15:17:19 [employer] AND [employer] AND REPAIRER CPT-29780 Pneumovax 14:52:45 [employer] AND [employer] AND REPAIRER CPT-05165 Venipuncture Draw Fee 14:06:30 [employer]ER AND REPAIRER CPT-000 Give Appropriate Flu Vaccine 14:18:34 [employer] AND [employer]ER AND REPAIRER 2 CPT-89026 Administration single or combination vac cine inc oral 14:46:00 [employer] AND REPAIRER CPT-92049 Influenza split virus > age 3 14:46:00 [employer] AND [employer]KER AND REPAIRER CPT-OV Office Visit 19:13:16 CDT CPT-76710 Zostavax 18:41:56 CDT CPT-88030 Administration single or combination vac cine inc oral 12:56:39 CDT CPT-94152 Zoster Vaccine (Zostavax) 12:56:39 CDT 2012 CPT-56330 Venipuncture Draw Fee 10:58:57 CDT CPT-04380 Sono pelvis non OB uterus ovaries cervix 17:45:04 CDT CPT-25063 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
--- OUTSIDE RECORDS SUMMARY | 2019-10-27 13:42 | XMS REPORT | Clinical Summary ---
Author Author Admin, Elba Lance [facility] Address Unknown Phone Allergies, Adverse Reactions, Alerts [...] y atherosclerosis of unspecified type of vessel, [place] or graft OTH NONSPC ABN FINDNG RAD&OTH [...] tab every 6-8 hour s PRN HYDROCODONE-ACETAMINOPHEN 29829909244 Active Baltazar Childers MD Active NORTRIPTYLINE HCL 50 MG CAPS 1 every night for neuropathy 4 NORTRIPTYLINE HCL 73130296059 Active Baltazar Childers MD Acti ve GABAPENTIN 300 MG CAPS 1 three times a day GABAPE NTIN 49632894932 Active Baltazar Childers MD Active GABAPENTIN 300 MG CAPS 1 po qd x 2 days, then 1 po BID x 2 d ays, then 1 po TID GABAPENTIN 43574727199 No Longer Active Baltazar silverman MD Active TRAMADOL HCL 50 MG TABS 1 twice a day as needed for pain TRAMADOL HCL 70364061496 Active Baltazar Childers MD Active NAPROXEN 500 MG TABS 1 tablet by mouth twice daily NAPROXEN 21688297690 No Longer Active Baltazar Childers MD Active PROAIR HFA 108 (90 BASE) MCG/ACT AERS 2 puffs four times a d ay as needed ALBUTEROL SULFATE 09055774875 Active Baltazar Childers MD Active DEPO-TESTOSTERONE 200 MG/ML OIL as directed RUFINO TOSTERONE CYPIONATE 68725062406 No Longer Active Baltazar Childers MD Active LIPITOR 20 MG TABS Take one by mouth daily in evening ATORVASTATIN CALCIUM 59730415702 No Longer Active Baltazar Childers MD Activ e CRESTOR 10 MG TABS 1 by mouth every day R OSUVASTATIN CALCIUM 03106190636 No Longer Active Baltazar Childers MD Activ e PHENTERMINE HCL 37.5 MG TABS Take one by mouth daily 2 PHENTERMINE HCL 34955204829 No Longer Active Baltazar Childers MD Activ e ROBAXIN-750 750 MG TABS Take one by mouth daily ME THOCARBAMOL 63199774624 Active Baltazar Childers MD Active TIZANIDINE HCL 4 MG TABS 1 daily as needed for muscle spasm 2011 TIZANIDINE HCL 32341541117 No Longer Active Dawna Salazar RN Active ONETOUCH ULTRA BLUE STRP Test twice a day GLUCO SE BLOOD 45795088584 Active Baltazar Childers MD Active [id number] 50-325-40 MG TABS 1 four time s a day as needed for heacache MLPJBVUOJW-[id number]-[id number] 61573571121 Active Baltazar Childers MD Active SUMATRIPTAN SUCCINATE 100 MG TABS 1 tablet by mouth at onset of migraine as needed SUMATRIPTAN SUCCINATE 83065099250 Active Shireen Miller APRN Active LORATADINE 10 MG TABS Take one by mouth daily LORATADINE 67786186988 Active Brad Hughes Active FUROSEMIDE 40 MG TABS Take one by mouth daily FUROSEMIDE 10605880310 Active Shireen Miller APRN Active LISINOPRIL 20 MG TABS Take one by mouth daily at bedtime LISINOPRIL 73138003325 Active Shireen Miller APRN Active OMEPRAZOLE 20 MG CPDR Take one by mouth daily OMEPRAZOLE 44459778759 Active Shireen Miller APRN Active HYDROXYZINE HCL 25 MG TABS Take one by mouth daily HYDROXYZINE HCL 14824551253 Active Shireen Miller APRN Active GLIPIZIDE 10 MG TABS 1 tablet by mouth twice daily GLIPIZIDE 44938285132 Active Shireen Miller APRN Active ALPRAZOLAM 1 MG TABS 1 tablet by mouth daily at bedtime for restles s leg ALPRAZOLAM 18719419693 Active Baltazar Childers MD Active METFORMIN HCL 1000 MG TABS Take one by mouth twice daily METFORMIN HCL 62363841055 Active Shireen Miller APRN Active TIZANIDINE HCL 4 MG TABS 1 daily as needed for muscle spasm 2011 TIZANIDINE HCL 4 MG TABS 710121 TIZANIDINE HCL Inactiv e PHENTERMINE HCL 37.5 MG TABS Take one by mouth daily 2 PHENTERMINE HCL 37.5 MG TABS 111724 PHENTERMINE HCL Inactive CRESTOR 10 MG TABS 1 by mouth every day C RESTOR 10 MG TABS ROSUVASTATIN CALCIUM Inactive LIPITOR 20 MG TABS Take one by mouth daily in evening LIPITOR 20 MG TABS 027820 ATORVASTATIN CALCIUM Inactive DEPO-TESTOSTERONE 200 MG/ML OIL as directed 8 DEPO-TESTOSTERONE 200 MG/ML OIL 565378 TESTOSTERONE CYPIONATE Inactive NAPROXEN 500 MG TABS 1 tablet by mouth twice daily 201 07/27/22 NAPROXEN 500 MG TABS 264379 NAPROXEN Inactive GABAPENTIN 300 MG CAPS 1 po qd x 2 days, then 1 po BID x 2 d ays, then 1 po TID GABAPENTIN 300 MG CAPS 594683 GABAPENTIN Inact amie Immunizations Vaccine Administration Date Value Standard Floyd cription pneumococcal immunization administered Pneumovax 23 [CVX33] pneumococcal polysaccharide vaccine, 23 valent Seasonal influenza vaccine, injectable, containing preservative, for > 3 years old (Afluria, FluLaval, Fluzone, Fluvirin, Fluarix, Agriflu(>= 18 yo)) Fluzone (>3 yrs.) [CBS776] Influenza, seasonal, inject able Seasonal influenza vaccine, injectable, containing preservative, for > 3 years old (Afluria, FluLaval, Fluzone, Fluvirin, Fluarix, Agriflu(>= 18 yo)) Fluzone (>3 yrs.) [EHS200] Influenza, seasonal, inject able Vital Signs Date [...] C - Chemistry sodium, serum 140 mmol/L 045-115 2760/02/26 potassium, serum 5.3 mmol/L 3.5-5.2 chloride, serum 101 mmol/L 98-107 carbon dioxide, venous blood 36.9 mmol/L 21.0-32 .0 blood glucose 151 mg/dL 65-110 calcium, serum 8.7 mg/dL 8.5-10.1 urea nitrogen, blood 19 mg/dL 7-18 creatinine, serum 1.60 mg/dL 0.60-1.30 hemoglobin A1C, blood, as % of total hemoglobin 7.9 % 4.3-6.0 Lab Report: CBC, Basic Metabolic Panel, HGBA1C - Chemistry sodium, serum 138 mmol/L 009-118 2041/05/23 potassium, serum 4.9 mmol/L 3.5-5.2 chloride, serum [...] 0.39 mg/dL 0.00-1.00 cholesterol, serum 345 mg/dL 671-982 7454/08/26 triglyceride, serum, fasting 635 mg/dL 30-200 HDL [...] Panel - Chemistry sodium, serum 136 mmol/L 965-877 8276/01/06 potassium, serum 5.1 mmol/L 3.5-5.2 chloride, serum [...] Panel - Chemistry sodium, serum 139 mmol/L 688-011 0907/08/26 potassium, serum 5.8 mmol/L 3.5-5.2 chloride, serum 98 mmol/L 98-107 carbon dioxide, venous blood 33.0 mmol/L 21.0-32 .0 blood glucose 107 mg/dL 65-110 urea nitrogen, blood 26 mg/dL 7-18 creatinine, serum 1.80 mg/dL 0.60-1.30 calcium, serum 9.3 mg/dL 8.5-10.1 sodium, serum 138 mmol/L 561-298 2199/06/17 potassium, serum 4.9 mmol/L 3.5-5.2 chloride, serum [...] mg/dL Encounters Code Encounter Date Provider Facility CPT-32051 Level 4 Est. Patient 14:52:45 TYPEWRITER TESTER Baltazar Childers MD [facility] CPT-60724 Level 4 Est. Patient 14:18:34 TYPEWRITER TESTER Baltazar Childers MD [facility] CPT-06259 Level 4 Est. Patient 15:18:29 CDT Baltazar Childers MD [facility] CPT-66494 Level 3 Est. Patient 12:45:34 CDT Baltazar Childers MD [facility] CPT-84539 Level 3 Est. Patient 10:10:11 CDT Baltazar Childers MD [facility] CPT-63789 Level 3 Est. Patient 14:07:50 CDT Baltazar Childers MD [facility] CPT-33986 Level 4 Est. Patient 12:26:10 TYPEWRITER TESTER Baltazar Childers MD [facility] CPT-92911 Level 4 Est. Patient 14:45:38 CDT Baltazar Childers MD [facility] CPT-66984 Level 4 New Patient 12:30:48 CDT Baltazar hinton MD [facility] Procedures Code Procedure Name Date Entry Date Standard Desc ription CPT-10822 First Vx Component - Ix admi n via ID IM or jet inj without physician counseling 15:17:19 TYPEWRITER TESTER CPT-24133 Pneumovax 15:17:19 TYPEWRITER TESTER CPT-58881 Pneumovax 14:52:45 TYPEWRITER TESTER CPT-05978 Venipuncture Draw Fee 14:06:30 TYPEWRITER TESTER CPT-000 Give Appropriate Flu Vaccine 14:18:34 TYPEWRITER TESTER 2 CPT-25081 Administration single or combination vac cine inc oral 14:46:00 TYPEWRITER TESTER CPT-05301 Influenza split virus > age 3 14:46:00 TYPEWRITER TESTER CPT-OV Office Visit 19:13:16 CDT CPT-14856 Zostavax 18:41:56 CDT CPT-36490 Administration single or combination vac cine inc oral 12:56:39 CDT CPT-99845 Zoster Vaccine (Zostavax) 12:56:39 CDT 2012 CPT-21838 Venipuncture Draw Fee 10:58:57 CDT CPT-38623 Sono pelvis non OB uterus ovaries cervix 17:45:04 CDT CPT-86227 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
--- OUTSIDE RECORDS SUMMARY | 2019-10-27 13:42 | XMS REPORT | Clinical Summary ---
Author Author Admin, [facility] Address Unknown Phone Unavailable Allergies, Adverse Reactions, [...] libido COLON POLYPS 211.3 Resolved Lolis Thomas TAKE UP SUPERVISOR Benign neoplasm of colon PERIPHERAL NEUROPATHY [...] y atherosclerosis of unspecified type of vessel, [place] or graft OTH NONSPC ABN FINDNG RAD&OTH [...] MISC Test twice a day LANCET S 35363415125 Active Baltazar Childers MD Active TRUEDRAW LANCING DEVICE MISC Test twice a day L ANCET DEVICES 33798975928 Active Baltazar Childers MD Active TRUETRACK TEST STRP Test twice a day GLUCOSE BLOO D 52188702761 Active Baltazar Childers MD Active TRUETRACK BLOOD GLUCOSE W/DEVICE KIT Test twice a day BLOOD GLUCOSE MONITORING SUPPL 88305386472 Active Bella Yokum TAKE UP SUPERVISOR Active HYDROCODONE-ACETAMINOPHEN 7.5-325 MG TABS Take 1 tab every 6-8 hour s PRN HYDROCODONE-ACETAMINOPHEN 30426058973 Active Bella Yogeovanyum TAKE UP SUPERVISOR Active NORTRIPTYLINE HCL 50 MG CAPS 1 every night for neuropathy 4 NORTRIPTYLINE HCL 58307815087 Active Baltazar Childers MD Acti ve GABAPENTIN 300 MG CAPS 1 three times a day GABAPE NTIN 69157611852 Active Baltazar Childers MD Active GABAPENTIN 300 MG CAPS 1 po qd x 2 days, then 1 po BID x 2 d ays, then 1 po TID GABAPENTIN 77225092741 No Longer Active Baltazar silverman MD Active TRAMADOL HCL 50 MG TABS 1 twice a day as needed for pain TRAMADOL HCL 42333756763 Active Baltazar Childers MD Active NAPROXEN 500 MG TABS 1 tablet by mouth twice daily NAPROXEN 96138458779 No Longer Active Baltazar Childers MD Active PROAIR HFA 108 (90 BASE) MCG/ACT AERS 2 puffs four times a d ay as needed ALBUTEROL SULFATE 13659700062 Active Baltazar Childers MD Active DEPO-TESTOSTERONE 200 MG/ML OIL as directed RUFINO TOSTERONE CYPIONATE 56576781007 No Longer Active Baltazar Childers MD Active LIPITOR 20 MG TABS Take one by mouth daily in evening ATORVASTATIN CALCIUM 58465326110 No Longer Active Baltazar Childers MD Activ e CRESTOR 10 MG TABS 1 by mouth every day R OSUVASTATIN CALCIUM 15012540645 No Longer Active Baltazar Childers MD Activ e PHENTERMINE HCL 37.5 MG TABS Take one by mouth daily 2 PHENTERMINE HCL 76174245667 No Longer Active Baltazar Childers MD Activ e ROBAXIN-750 750 MG TABS Take one by mouth daily ME THOCARBAMOL 02691887268 Active Baltazar Childers MD Active TIZANIDINE HCL 4 MG TABS 1 daily as needed for muscle spasm 2011 TIZANIDINE HCL 66140020354 No Longer Active Dawna Salazar RN Active X BODYUCH ULTRA BLUE STRP Test twice a day GLUCO SE BLOOD 87048606219 Active Baltazar Childers MD Active [id number] 50-325-40 MG TABS 1 four time s a day as needed for heacache [id number] 96339984485 Active Baltazar Childers MD Active SUMATRIPTAN SUCCINATE 100 MG TABS 1 tablet by mouth at onset of migraine as needed SUMATRIPTAN SUCCINATE 51200178271 Active Baltazar barron MD Active LORATADINE 10 MG TABS Take one by mouth daily LORATADINE 55397330768 Active Baltazar Childers MD Active FUROSEMIDE 40 MG TABS Take one by mouth daily FUROSEMIDE 64515749356 Active Baltazar Childers MD Active LISINOPRIL 20 MG TABS Take one by mouth daily at bedtime LISINOPRIL 89102246378 Active Baltazar Childers MD Active OMEPRAZOLE 20 MG CPDR Take one by mouth daily OMEPRAZOLE 89490362379 Active Baltazar Childers MD Active HYDROXYZINE HCL 25 MG TABS Take one by mouth daily HYDROXYZINE HCL 54446477269 Active Baltazar Childers MD Active GLIPIZIDE 10 MG TABS 1 tablet by mouth twice daily GLIPIZIDE 77889407723 Active Baltazar Childers MD Active ALPRAZOLAM 1 MG TABS 1 tablet by mouth daily at bedtime for restles s leg ALPRAZOLAM 56523380977 Active Baltazar Childers MD Active METFORMIN HCL 1000 MG TABS Take one by mouth twice daily METFORMIN HCL 58357167688 Active Baltazar Childers MD Active TIZANIDINE HCL 4 MG TABS 1 daily as needed for muscle spasm 2011 TIZANIDINE HCL 4 MG TABS 731358 TIZANIDINE HCL Inactiv e PHENTERMINE HCL 37.5 MG TABS Take one by mouth daily 2 PHENTERMINE HCL 37.5 MG TABS 627158 PHENTERMINE HCL Inactive CRESTOR 10 MG TABS 1 by mouth every day C RESTOR 10 MG TABS ROSUVASTATIN CALCIUM Inactive LIPITOR 20 MG TABS Take one by mouth daily in evening LIPITOR 20 MG TABS 097655 ATORVASTATIN CALCIUM Inactive DEPO-TESTOSTERONE 200 MG/ML OIL as directed 8 DEPO-TESTOSTERONE 200 MG/ML OIL 311462 TESTOSTERONE CYPIONATE Inactive NAPROXEN 500 MG TABS 1 tablet by mouth twice daily 201 07/27/22 NAPROXEN 500 MG TABS 693505 NAPROXEN Inactive GABAPENTIN 300 MG CAPS 1 po qd x 2 days, then 1 po BID x 2 d ays, then 1 po TID GABAPENTIN 300 MG CAPS 565329 GABAPENTIN Inact amie Immunizations Vaccine Administration Date Value Standard Floyd cription pneumococcal immunization administered Pneumovax 23 [CVX33] pneumococcal polysaccharide vaccine, 23 valent Seasonal influenza vaccine, injectable, containing preservative, for > 3 years old (Afluria, FluLaval, Fluzone, Fluvirin, Fluarix, Agriflu(>= 18 yo)) Fluzone (>3 yrs.) [[id number]] Influenza, seasonal, inject able Seasonal influenza vaccine, injectable, containing preservative, for > 3 years old (Afluria, FluLaval, Fluzone, Fluvirin, Fluarix, Agriflu(>= 18 yo)) Fluzone (>3 yrs.) [[id number]] Influenza, seasonal, inject able Vital Signs Date [...] - 3141-9 232 [lb_av] Weigh t Measured blood pressure, diastolic - 8462-4 79 mm[Hg] BP [place] blood pressure, systolic - 8480-6 127 mm[Hg] BP sys height E&M - 8302-2 66.5 [in_us] Bdy h eight pulse rate E&M - 8867-4 91 /min H eart rate temperature E&M 97.4 [degF] Body temp erature weight E&M - 3141-9 231.13 [lb_av] Weigh t Measured Diagnostic Results Date Name Value Unit Range Description Lab Report: Basic Metabolic Panel, HGBA1 C - Chemistry sodium, serum 140 mmol/L 976-146 5471/02/26 potassium, serum 5.3 mmol/L 3.5-5.2 chloride, serum 101 mmol/L 98-107 carbon dioxide, venous blood 36.9 mmol/L 21.0-32 .0 blood glucose 151 mg/dL 65-110 calcium, serum 8.7 mg/dL 8.5-10.1 urea nitrogen, blood 19 mg/dL 7-18 creatinine, serum 1.60 mg/dL 0.60-1.30 hemoglobin A1C, blood, as % of total hemoglobin 7.9 % 4.3-6.0 Lab Report: CBC - Hematology [...] Panel - Chemistry sodium, serum 136 mmol/L 368-308 9813/01/06 potassium, serum 5.1 mmol/L 3.5-5.2 chloride, serum [...] count 346 10^3/MM^3 10*3/mm3 142-424 Lab Report: MICROALBUMIN, Lipid Panel, H GBA1C, Comp. Metabolic Panel - Chemistry albumin/creatinine ratio, urine 30 - 300 mg/g mg/g{creat} 0-29 cholesterol, serum 319 mg/dL 259-417 8408/08/21 triglyceride, serum, fasting 546 mg/dL 30-200 HDL cholesterol, serum 39 mg/dL 32-96 LDL cholesterol, serum 167.00 mg/dL 5.00-130.00 hemoglobin A1C, blood, as % of total hemoglobin 7.7 % 4.3-6.0 sodium, serum 138 mmol/L 029-459 9017/08/21 potassium, serum 4.3 mmol/L 3.5-5.2 chloride, serum [...] Panel - Lab microalbumin, urine 10 0-19 Office Visit: Medication check - Chemis try cholesterol, target level 200 mg/dL triglyceride, target level 150 mg/dL HDL cholesterol, serum, target level 40 mg/dL LDL target level 70 mg/dL Encounters Code Encounter Date Provider Facility CPT-38820 Level 4 Est. Patient 14:15:19 CDT Baltazar Childers MD [facility] CPT-06689 Level 4 Est. Patient 12:20:13 CDT Baltazar Childers MD [facility] CPT-14217 Level 4 Est. Patient 14:52:45 YOUTH MINISTRY DIRECTOR Baltazar Childers MD [facility] CPT-79673 Level 4 Est. Patient 14:18:34 YOUTH MINISTRY DIRECTOR Baltazar Childers MD [facility] CPT-58097 Level 4 Est. Patient 15:18:29 CDT Baltazar Childers MD [facility] CPT-53896 Level 3 Est. Patient 12:45:34 CDT Baltazar Childers MD [facility] CPT-56288 Level 3 Est. Patient 10:10:11 CDT Baltazar Childers MD [facility] CPT-05374 Level 3 Est. Patient 14:07:50 CDT Baltazar Childers MD [facility] CPT-30795 Level 4 Est. Patient 12:26:10 YOUTH MINISTRY DIRECTOR Baltazar Childers MD [facility] CPT-89113 Level 4 Est. Patient 14:45:38 CDT Baltazar Childers MD [facility] CPT-47635 Level 4 New Patient 12:30:48 CDT Baltazar hinton MD [facility] Procedures Code Procedure Name Date Entry Date Standard Desc ription CPT-72028 Fluzone Quadrivalent Intramuscular Suspe nsion 0.5 ML 10:49:13 CDT CPT-55381 First Vx Component - Ix admi n via ID IM or jet inj without physician counseling 15:17:19 YOUTH MINISTRY DIRECTOR CPT-31947 Pneumovax 15:17:19 YOUTH MINISTRY DIRECTOR CPT-42998 Pneumovax 14:52:45 YOUTH MINISTRY DIRECTOR CPT-79385 Venipuncture Draw Fee 14:06:30 YOUTH MINISTRY DIRECTOR CPT-000 Give Appropriate Flu Vaccine 14:18:34 YOUTH MINISTRY DIRECTOR 2 CPT-65827 Administration single or combination vac cine inc oral 14:46:00 YOUTH MINISTRY DIRECTOR CPT-94758 Influenza split virus > age 3 14:46:00 YOUTH MINISTRY DIRECTOR CPT-OV Office Visit 19:13:16 CDT CPT-71098 Zostavax 18:41:56 CDT CPT-86769 Administration single or combination vac cine inc oral 12:56:39 CDT CPT-63571 Zoster Vaccine (Zostavax) 12:56:39 CDT 2012 CPT-12366 Venipuncture Draw Fee 10:58:57 CDT CPT-76332 Sono pelvis non OB uterus ovaries cervix 17:45:04 CDT CPT-27153 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
--- OUTSIDE RECORDS SUMMARY | 2019-10-27 13:42 | XMS REPORT | Clinical Summary ---
Author Author Admin, [facility] Address Unknown Phone Allergies, Adverse Reactions, [...] y atherosclerosis of unspecified type of vessel, [place] [...] tab every 6-8 hour s PRN HYDROCODONE-ACETAMINOPHEN 85785167324 Active Baltazar Childers MD Active NORTRIPTYLINE HCL 50 MG CAPS 1 every night for neuropathy 4 NORTRIPTYLINE HCL 49538307823 Active Baltazar Childers MD Acti ve GABAPENTIN 300 MG CAPS 1 three times a day GABAPE NTIN 37426753224 Active Baltazar Childers MD Active GABAPENTIN 300 MG CAPS 1 po qd x 2 days, then 1 po BID x 2 d ays, then 1 po TID GABAPENTIN 83703970825 No Longer Active Baltazar silverman MD Active TRAMADOL HCL 50 MG TABS 1 twice a day as needed for pain TRAMADOL HCL 12049314859 Active Baltazar Childers MD Active NAPROXEN 500 MG TABS 1 tablet by mouth twice daily NAPROXEN 07105866209 No Longer Active aBltazar Childers MD Active PROAIR HFA 108 (90 BASE) MCG/ACT AERS 2 puffs four times a d ay as needed ALBUTEROL SULFATE 41613101099 Active Baltazar Childers MD Active DEPO-TESTOSTERONE 200 MG/ML OIL as directed RUFINO TOSTERONE CYPIONATE 67733261387 No Longer Active Baltazar Childers MD Active LIPITOR 20 MG TABS Take one by mouth daily in evening ATORVASTATIN CALCIUM 15913301459 No Longer Active Baltazar Childers MD Activ e CRESTOR 10 MG TABS 1 by mouth every day R OSUVASTATIN CALCIUM 61595671937 No Longer Active Baltazar Childers MD Activ e PHENTERMINE HCL 37.5 MG TABS Take one by mouth daily 2 PHENTERMINE HCL 01801155877 No Longer Active Baltazar Childers MD Activ e ROBAXIN-750 750 MG TABS Take one by mouth daily ME THOCARBAMOL 35760311654 Active Baltazar Childers MD Active TIZANIDINE HCL 4 MG TABS 1 daily as needed for muscle spasm 2011 TIZANIDINE HCL 59564766583 No Longer Active Dawna Salazar RN Active ONETOUCH ULTRA BLUE STRP Test twice a day GLUCO SE BLOOD 36162223788 Active Baltazar Childers MD Active [id number] 50-325-40 MG TABS 1 four time s a day as needed for heacache [id number] 84721947316 Active Baltazar Childers MD Active SUMATRIPTAN SUCCINATE 100 MG TABS 1 tablet by mouth at onset of migraine as needed SUMATRIPTAN SUCCINATE 47401243843 Active Shireen Miller APRN Active LORATADINE 10 MG TABS Take one by mouth daily LORATADINE 18254118139 Active Brad Hughes Active FUROSEMIDE 40 MG TABS Take one by mouth daily FUROSEMIDE 02310749930 Active Shireen Miller APRN Active LISINOPRIL 20 MG TABS Take one by mouth daily at bedtime LISINOPRIL 38195791495 Active Shireen Miller APRN Active OMEPRAZOLE 20 MG CPDR Take one by mouth daily OMEPRAZOLE 03473140433 Active Shireen Miller APRN Active HYDROXYZINE HCL 25 MG TABS Take one by mouth daily HYDROXYZINE HCL 33622212682 Active Shireen Miller APRN Active GLIPIZIDE 10 MG TABS 1 tablet by mouth twice daily GLIPIZIDE 10193790054 Active Shireen Miller APRN Active ALPRAZOLAM 1 MG TABS 1 tablet by mouth daily at bedtime for restles s leg ALPRAZOLAM 85806948927 Active Baltazar Childers MD Active METFORMIN HCL 1000 MG TABS Take one by mouth twice daily METFORMIN HCL 57346317480 Active Shireen Miller APRN Active TIZANIDINE HCL 4 MG TABS 1 daily as needed for muscle spasm 2011 TIZANIDINE HCL 4 MG TABS 260905 TIZANIDINE HCL Inactiv e PHENTERMINE HCL 37.5 MG TABS Take one by mouth daily 2 PHENTERMINE HCL 37.5 MG TABS 167582 PHENTERMINE HCL Inactive CRESTOR 10 MG TABS 1 by mouth every day C RESTOR 10 MG TABS ROSUVASTATIN CALCIUM Inactive LIPITOR 20 MG TABS Take one by mouth daily in evening LIPITOR 20 MG TABS 365171 ATORVASTATIN CALCIUM Inactive DEPO-TESTOSTERONE 200 MG/ML OIL as directed 8 DEPO-TESTOSTERONE 200 MG/ML OIL 490354 TESTOSTERONE CYPIONATE Inactive NAPROXEN 500 MG TABS 1 tablet by mouth twice daily 201 07/27/22 NAPROXEN 500 MG TABS 077680 NAPROXEN Inactive GABAPENTIN 300 MG CAPS 1 po qd x 2 days, then 1 po BID x 2 d ays, then 1 po TID GABAPENTIN 300 MG CAPS 219769 GABAPENTIN Inact amie Immunizations Vaccine Administration Date Value Standard Floyd cription pneumococcal immunization administered Pneumovax 23 [CVX33] pneumococcal polysaccharide vaccine, 23 valent Seasonal influenza vaccine, injectable, containing preservative, for > 3 years old (Afluria, FluLaval, Fluzone, Fluvirin, Fluarix, Agriflu(>= 18 yo)) Fluzone (>3 yrs.) [[id number]] Influenza, seasonal, inject able Seasonal influenza vaccine, injectable, containing preservative, for > 3 years old (Afluria, FluLaval, Fluzone, Fluvirin, Fluarix, Agriflu(>= 18 yo)) Fluzone (>3 yrs.) [[id number]] Influenza, seasonal, inject able Vital Signs Date [...] Results Date Name Value Unit Range Description Chart Maintenance: Outside labs entered on flowsheet - Chemistry sodium, serum 140 mmol/L potassium, serum 4.2 mmol/L chloride, serum 100 mmol/L carbon dioxide, venous blood 25 mmol/L urea nitrogen, blood 25 mg/dL blood glucose 182 mg/dL creatinine, serum 2.0 mg/dL aspartate aminotransferase (SGOT), serum 20 U/L alanine aminotransferase (SGPT), serum 29 U/L bilirubin, serum, total 7.2 mg/dL alkaline phosphatase, serum 38 U/L calcium, serum 10.3 mg/dL Chart Maintenance: Outside labs entered on flowsheet - Hematology hemoglobin, blood 10.9 g/dL hematocrit, blood 33.7 % mean corpuscular volume, RBC 96 fL mean corpuscular hemoglobin, RBC 31.1 pg red blood cell distribution width 14.0 % Lab Report: Basic Metabolic Panel, HGBA1 C - Chemistry sodium, serum 140 mmol/L 146-639 8554/02/26 potassium, serum 5.3 mmol/L 3.5-5.2 chloride, serum 101 mmol/L 98-107 carbon dioxide, venous blood 36.9 mmol/L 21.0-32 .0 blood glucose 151 mg/dL 65-110 calcium, serum 8.7 mg/dL 8.5-10.1 urea nitrogen, blood 19 mg/dL 7-18 creatinine, serum 1.60 mg/dL 0.60-1.30 hemoglobin A1C, blood, as % of total hemoglobin 7.9 % 4.3-6.0 Lab Report: CBC, Basic Metabolic Panel, HGBA1C - Chemistry sodium, serum 138 mmol/L 904-661 6102/05/23 potassium, serum 4.9 mmol/L 3.5-5.2 chloride, serum [...] 0.39 mg/dL 0.00-1.00 cholesterol, serum 345 mg/dL 725-604 9172/08/26 triglyceride, serum, fasting 635 mg/dL 30-200 HDL [...] Panel - Chemistry sodium, serum 136 mmol/L 084-779 9012/01/06 potassium, serum 5.1 mmol/L 3.5-5.2 chloride, serum [...] Panel - Chemistry sodium, serum 139 mmol/L 298-671 3417/08/26 potassium, serum 5.8 mmol/L 3.5-5.2 chloride, serum 98 mmol/L 98-107 carbon dioxide, venous blood 33.0 mmol/L 21.0-32 .0 blood glucose 107 mg/dL 65-110 urea nitrogen, blood 26 mg/dL 7-18 creatinine, serum 1.80 mg/dL 0.60-1.30 calcium, serum 9.3 mg/dL 8.5-10.1 sodium, serum 138 mmol/L 923-767 4319/06/17 potassium, serum 4.9 mmol/L 3.5-5.2 chloride, serum [...] 1.010 1.000-1.030 pH, urine, semiquantitative 5.5 5.0-8.5 urine color Straw Colorless;Lightyellow;St raw;Yellow appearance, urine [...] mg/dL Encounters Code Encounter Date Provider Facility CPT-25977 Level 4 Est. Patient 14:52:45 HARNESS INSPECTOR Baltazar Childers MD [facility] CPT-99779 Level 4 Est. Patient 14:18:34 HARNESS INSPECTOR Baltazar Childers MD [facility] CPT-55524 Level 4 Est. Patient 15:18:29 CDT Baltazar Childers MD [facility] CPT-39107 Level 3 Est. Patient 12:45:34 CDT Baltazar Childers MD [facility] CPT-86643 Level 3 Est. Patient 10:10:11 CDT Baltazar Childers MD [facility] CPT-93615 Level 3 Est. Patient 14:07:50 CDT Baltazar Childers MD [facility] CPT-14155 Level 4 Est. Patient 12:26:10 HARNESS INSPECTOR Baltazar Childers MD [facility] CPT-45365 Level 4 Est. Patient 14:45:38 CDT Baltazar Childers MD [facility] CPT-14590 Level 4 New Patient 12:30:48 CDT Baltazar hinton MD [facility] Procedures Code Procedure Name Date Entry Date Standard Desc ription CPT-31421 First Vx Component - Ix admi n via ID IM or jet inj without physician counseling 15:17:19 HARNESS INSPECTOR CPT-66920 Pneumovax 23 15:17:19 HARNESS INSPECTOR CPT-48115 Pneumovax 14:52:45 HARNESS INSPECTOR CPT-96744 Venipuncture Draw Fee 14:06:30 HARNESS INSPECTOR CPT-000 Give Appropriate Flu Vaccine 14:18:34 HARNESS INSPECTOR 2 CPT-94922 Administration single or combination vac cine inc oral 14:46:00 HARNESS INSPECTOR CPT-68615 Influenza split virus > age 3 14:46:00 HARNESS INSPECTOR CPT-OV Office Visit 19:13:16 CDT CPT-16182 Zostavax 18:41:56 CDT CPT-67149 Administration single or combination vac cine inc oral 12:56:39 CDT CPT-71985 Zoster Vaccine (Zostavax) 12:56:39 CDT 2012 CPT-27363 Venipuncture Draw Fee 10:58:57 CDT CPT-54372 Sono pelvis non OB uterus ovaries cervix 17:45:04 CDT CPT-16745 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
--- OUTSIDE RECORDS SUMMARY | 2019-10-27 13:42 | XMS REPORT | Clinical Summary ---
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 Benign neoplasm of colon PERIPHERAL NEUROPATHY 356.9 [...] y atherosclerosis of unspecified type of vessel, [place] or graft OTH NONSPC ABN FINDNG RAD&OTH [...] tab every 6-8 hour s PRN HYDROCODONE-ACETAMINOPHEN 98410973927 Active Baltazar Childers MD Active NORTRIPTYLINE HCL 50 MG CAPS 1 every night for neuropathy 4 NORTRIPTYLINE HCL 51553186036 Active Baltazar Childers MD Acti ve GABAPENTIN 300 MG CAPS 1 three times a day GABAPE NTIN 67715243250 Active Baltazar Childers MD Active GABAPENTIN 300 MG CAPS 1 po qd x 2 days, then 1 po BID x 2 d ays, then 1 po TID GABAPENTIN 19480262832 No Longer Active Baltazar silverman MD Active TRAMADOL HCL 50 MG TABS 1 twice a day as needed for pain TRAMADOL HCL 54072316291 Active Baltazar Childers MD Active NAPROXEN 500 MG TABS 1 tablet by mouth twice daily NAPROXEN 24059959901 No Longer Active Baltazar Childers MD Active PROAIR HFA 108 (90 BASE) MCG/ACT AERS 2 puffs four times a d ay as needed ALBUTEROL SULFATE 57195914731 Active Baltazar Childers MD Active DEPO-TESTOSTERONE 200 MG/ML OIL as directed RUFINO TOSTERONE CYPIONATE 82854561516 No Longer Active Baltazar Childers MD Active LIPITOR 20 MG TABS Take one by mouth daily in evening ATORVASTATIN CALCIUM 00494403995 No Longer Active Baltazar Childers MD Activ e CRESTOR 10 MG TABS 1 by mouth every day R OSUVASTATIN CALCIUM 84217143596 No Longer Active Baltazar Childers MD Activ e PHENTERMINE HCL 37.5 MG TABS Take one by mouth daily 2 PHENTERMINE HCL 69439154432 No Longer Active Baltazar Childers MD Activ e ROBAXIN-750 750 MG TABS Take one by mouth daily ME THOCARBAMOL 40478743381 Active Baltazar Childers MD Active TIZANIDINE HCL 4 MG TABS 1 daily as needed for muscle spasm 2011 TIZANIDINE HCL 42921622541 No Longer Active Dawna Salazar RN Active ONETOUCH ULTRA BLUE STRP Test twice a day GLUCO SE BLOOD 86103172394 Active Baltazar Childers MD Active [id number] 50-325-40 MG TABS 1 four time s a day as needed for heacache [id number] 63068772329 Active Baltazar Childers MD Active SUMATRIPTAN SUCCINATE 100 MG TABS 1 tablet by mouth at onset of migraine as needed SUMATRIPTAN SUCCINATE 09078573273 Active Baltazar bynum MD Active LORATADINE 10 MG TABS Take one by mouth daily LORATADINE 85809260917 Active Baltazar Childers MD Active FUROSEMIDE 40 MG TABS Take one by mouth daily FUROSEMIDE 87769159034 Active Baltazar Childers MD Active LISINOPRIL 20 MG TABS Take one by mouth daily at bedtime LISINOPRIL 20177715104 Active Baltazar Childers MD Active OMEPRAZOLE 20 MG CPDR Take one by mouth daily OMEPRAZOLE 64520497959 Active Baltazar Childers MD Active HYDROXYZINE HCL 25 MG TABS Take one by mouth daily HYDROXYZINE HCL 20021167998 Active Baltazar Childers MD Active GLIPIZIDE 10 MG TABS 1 tablet by mouth twice daily GLIPIZIDE 60156865234 Active Baltazar Childers MD Active ALPRAZOLAM 1 MG TABS 1 tablet by mouth daily at bedtime for restles s leg ALPRAZOLAM 19563294230 Active Baltazar Childers MD Active METFORMIN HCL 1000 MG TABS Take one by mouth twice daily METFORMIN HCL 50359517749 Active Baltazar Childers MD Active TIZANIDINE HCL 4 MG TABS 1 daily as needed for muscle spasm 2011 TIZANIDINE HCL 4 MG TABS 922617 TIZANIDINE HCL Inactiv e PHENTERMINE HCL 37.5 MG TABS Take one by mouth daily 2 PHENTERMINE HCL 37.5 MG TABS 435292 PHENTERMINE HCL Inactive CRESTOR 10 MG TABS 1 by mouth every day C RESTOR 10 MG TABS ROSUVASTATIN CALCIUM Inactive LIPITOR 20 MG TABS Take one by mouth daily in evening LIPITOR 20 MG TABS 354760 ATORVASTATIN CALCIUM Inactive DEPO-TESTOSTERONE 200 MG/ML OIL as directed 8 DEPO-TESTOSTERONE 200 MG/ML OIL 940694 TESTOSTERONE CYPIONATE Inactive NAPROXEN 500 MG TABS 1 tablet by mouth twice daily 201 07/27/22 NAPROXEN 500 MG TABS 032657 NAPROXEN Inactive GABAPENTIN 300 MG CAPS 1 po qd x 2 days, then 1 po BID x 2 d ays, then 1 po TID GABAPENTIN 300 MG CAPS 309848 GABAPENTIN Inact amie Immunizations Vaccine Administration Date Value Standard Floyd cription pneumococcal immunization administered Pneumovax 23 [CVX33] pneumococcal polysaccharide vaccine, 23 valent Seasonal influenza vaccine, injectable, containing preservative, for > 3 years old (Afluria, FluLaval, Fluzone, Fluvirin, Fluarix, Agriflu(>= 18 yo)) Fluzone (>3 yrs.) [[id number]] Influenza, seasonal, inject able Seasonal influenza vaccine, injectable, containing preservative, for > 3 years old (Afluria, FluLaval, Fluzone, Fluvirin, Fluarix, Agriflu(>= 18 yo)) Fluzone (>3 yrs.) [DQS914] Influenza, seasonal, inject able Vital Signs Date [...] - 3141-9 227 [lb_av] Weigh t Measured Diagnostic Results Date Name Value Unit Range Description Lab Report: Basic Metabolic Panel, HGBA1 C - Chemistry sodium, serum 140 mmol/L 798-995 9793/02/26 potassium, serum 5.3 mmol/L 3.5-5.2 chloride, serum [...] 0.39 mg/dL 0.00-1.00 cholesterol, serum 345 mg/dL 772-522 0911/08/26 triglyceride, serum, fasting 635 mg/dL 30-200 HDL [...] Panel - Chemistry sodium, serum 136 mmol/L 262-079 1064/01/06 potassium, serum 5.1 mmol/L 3.5-5.2 chloride, serum [...] Panel - Chemistry sodium, serum 139 mmol/L 927-391 2076/08/26 potassium, serum 5.8 mmol/L 3.5-5.2 chloride, serum [...] mg/dL Encounters Code Encounter Date Provider Facility CPT-60455 Level 4 Est. Patient 12:20:13 CDT Baltazar Childers MD [facility] CPT-13689 Level 4 Est. Patient 14:52:45 [facility] Baltazar Childers MD [facility] CPT-43038 Level 4 Est. Patient 14:18:34 [facility] Baltazar Childers MD [facility] CPT-26238 Level 4 Est. Patient 15:18:29 CDT Baltazar Childers MD [facility] CPT-56006 Level 3 Est. Patient 12:45:34 CDT Baltazar Childers MD [facility] CPT-61363 Level 3 Est. Patient 10:10:11 CDT Baltazar Childers MD [facility] CPT-92525 Level 3 Est. Patient 14:07:50 CDT Baltazar Childers MD [facility] CPT-52186 Level 4 Est. Patient 12:26:10 [facility] Baltazar Childers MD [facility] CPT-25900 Level 4 Est. Patient 14:45:38 CDT Baltazar Childers MD [facility] CPT-21919 Level 4 New Patient 12:30:48 CDT Baltazar hinton MD [facility] Procedures Code Procedure Name Date Entry Date Standard Desc ription CPT-11911 First Vx Component - Ix admi n via ID IM or jet inj without physician counseling 15:17:19 [facility] CPT-10499 Pneumovax 15:17:19 [facility] CPT-05107 Pneumovax 14:52:45 [facility] CPT-24378 Venipuncture Draw Fee 14:06:30 [facility] CPT-000 Give Appropriate Flu Vaccine 14:18:34 [facility] 2 CPT-20366 Administration single or combination vac cine inc oral 14:46:00 [facility] CPT-05945 Influenza split virus > age 3 14:46:00 [facility] CPT-OV Office Visit 19:13:16 CDT CPT-02786 Zostavax 18:41:56 CDT CPT-26669 Administration single or combination vac cine inc oral 12:56:39 CDT CPT-95488 Zoster Vaccine (Zostavax) 12:56:39 CDT 2012 CPT-31704 Venipuncture Draw Fee 10:58:57 CDT CPT-29770 Sono pelvis non OB uterus ovaries cervix 17:45:04 CDT CPT-14829 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
--- OUTSIDE RECORDS SUMMARY | 2019-10-27 13:43 | XMS REPORT | Clinical Summary ---
Author Author Admin, Elba [facility] Address Unknown Phone Allergies, Adverse Reactions, [...] y atherosclerosis of unspecified type of vessel, [place] or graft OTH NONSPC ABN FINDNG RAD&OTH [...] tab every 6-8 hour s PRN HYDROCODONE-ACETAMINOPHEN 86088160549 Active Baltazar Childers MD Active NORTRIPTYLINE HCL 50 MG CAPS 1 every night for neuropathy 4 NORTRIPTYLINE HCL 77653302979 Active Baltazar Childers MD Acti ve GABAPENTIN 300 MG CAPS 1 three times a day GABAPE NTIN 33045308521 Active Baltazar Childers MD Active GABAPENTIN 300 MG CAPS 1 po qd x 2 days, then 1 po BID x 2 d ays, then 1 po TID GABAPENTIN 63212387212 No Longer Active Baltazar silverman MD Active TRAMADOL HCL 50 MG TABS 1 twice a day as needed for pain TRAMADOL HCL 64885898707 Active Baltazar Childers MD Active NAPROXEN 500 MG TABS 1 tablet by mouth twice daily NAPROXEN 14885279994 No Longer Active Baltazar Childers MD Active PROAIR HFA 108 (90 BASE) MCG/ACT AERS 2 puffs four times a d ay as needed ALBUTEROL SULFATE 87146388374 Active Baltazar Childers MD Active DEPO-TESTOSTERONE 200 MG/ML OIL as directed RUFINO TOSTERONE CYPIONATE 42273908884 No Longer Active Baltazar Childers MD Active LIPITOR 20 MG TABS Take one by mouth daily in evening ATORVASTATIN CALCIUM 91081525547 No Longer Active Baltazar Childers MD Activ e CRESTOR 10 MG TABS 1 by mouth every day R OSUVASTATIN CALCIUM 77861075946 No Longer Active Baltazar Childers MD Activ e PHENTERMINE HCL 37.5 MG TABS Take one by mouth daily 2 PHENTERMINE HCL 49650352108 No Longer Active Baltazar Childers MD Activ e ROBAXIN-750 750 MG TABS Take one by mouth daily ME THOCARBAMOL 13625462481 Active Baltazar Childers MD Active TIZANIDINE HCL 4 MG TABS 1 daily as needed for muscle spasm 2011 TIZANIDINE HCL 42490849606 No Longer Active Dawna Salazar RN Active ONETOUCH ULTRA BLUE STRP Test twice a day GLUCO SE BLOOD 31212392135 Active Baltazar Childers MD Active [id number] 50-325-40 MG TABS 1 four time s a day as needed for heacache [id number] 13885108323 Active Baltazar Childers MD Active SUMATRIPTAN SUCCINATE 100 MG TABS 1 tablet by mouth at onset of migraine as needed SUMATRIPTAN SUCCINATE 26666610839 Active Shireen Miller APRN Active LORATADINE 10 MG TABS Take one by mouth daily LORATADINE 77765928316 Active Brad Hughes Active FUROSEMIDE 40 MG TABS Take one by mouth daily FUROSEMIDE 37192143411 Active Shireen Miller APRN Active LISINOPRIL 20 MG TABS Take one by mouth daily at bedtime LISINOPRIL 07591781659 Active Shireen Miller APRN Active OMEPRAZOLE 20 MG CPDR Take one by mouth daily OMEPRAZOLE 97772358721 Active Shireen Miller APRN Active HYDROXYZINE HCL 25 MG TABS Take one by mouth daily HYDROXYZINE HCL 63513602743 Active Shireen Miller APRN Active GLIPIZIDE 10 MG TABS 1 tablet by mouth twice daily GLIPIZIDE 64793738057 Active Shireen Miller APRN Active ALPRAZOLAM 1 MG TABS 1 tablet by mouth daily at bedtime for restles s leg ALPRAZOLAM 38930016007 Active Baltazar Childers MD Active METFORMIN HCL 1000 MG TABS Take one by mouth twice daily METFORMIN HCL 48446787147 Active Shireen Miller APRN Active TIZANIDINE HCL 4 MG TABS 1 daily as needed for muscle spasm 2011 TIZANIDINE HCL 4 MG TABS 595787 TIZANIDINE HCL Inactiv e PHENTERMINE HCL 37.5 MG TABS Take one by mouth daily 2 PHENTERMINE HCL 37.5 MG TABS 067922 PHENTERMINE HCL Inactive CRESTOR 10 MG TABS 1 by mouth every day C RESTOR 10 MG TABS ROSUVASTATIN CALCIUM Inactive LIPITOR 20 MG TABS Take one by mouth daily in evening LIPITOR 20 MG TABS 755067 ATORVASTATIN CALCIUM Inactive DEPO-TESTOSTERONE 200 MG/ML OIL as directed 8 DEPO-TESTOSTERONE 200 MG/ML OIL 678235 TESTOSTERONE CYPIONATE Inactive NAPROXEN 500 MG TABS 1 tablet by mouth twice daily 201 07/27/22 NAPROXEN 500 MG TABS 867691 NAPROXEN Inactive GABAPENTIN 300 MG CAPS 1 po qd x 2 days, then 1 po BID x 2 d ays, then 1 po TID GABAPENTIN 300 MG CAPS 684587 GABAPENTIN Inact amie Immunizations Vaccine Administration Date Value Standard Floyd cription pneumococcal immunization administered Pneumovax 23 [CVX33] pneumococcal polysaccharide vaccine, 23 valent Seasonal influenza vaccine, injectable, containing preservative, for > 3 years old (Afluria, FluLaval, Fluzone, Fluvirin, Fluarix, Agriflu(>= 18 yo)) Fluzone (>3 yrs.) [[id number]] Influenza, seasonal, inject able Seasonal influenza vaccine, injectable, containing preservative, for > 3 years old (Afluria, FluLaval, Fluzone, Fluvirin, Fluarix, Agriflu(>= 18 yo)) Fluzone (>3 yrs.) [[id number]] Influenza, seasonal, inject able Vital Signs Date [...] - 3141-9 232.50 [lb_av] Weigh t Measured blood pressure, diastolic - 8462-4 70 mm[Hg] BP [place] blood pressure, systolic - 8480-6 122 mm[Hg] BP sys height E&M - 8302-2 66.5 [in_us] Bdy h eight pulse rate E&M - 8867-4 88 /min H eart rate temperature E&M 97.4 [degF] Body temp erature weight E&M - 3141-9 237 [lb_av] Weigh t Measured blood pressure, diastolic - 8462-4 63 mm[Hg] BP [place] blood pressure, systolic - 8480-6 92 mm[Hg] BP sys height E&M - 8302-2 66.5 [in_us] Bdy h eight pulse rate E&M - 8867-4 94 /min H eart rate temperature E&M 97.2 [degF] Body temp erature weight E&M - 3141-9 240 [lb_av] Weigh t Measured Diagnostic Results Date Name Value Unit Range Description Lab Report: Basic Metabolic Panel, HGBA1 C - Chemistry sodium, serum 140 mmol/L 903-604 7429/02/26 urea nitrogen, blood 19 mg/dL 7-18 creatinine, serum 1.60 mg/dL 0.60-1.30 hemoglobin A1C, blood, as % of total hemoglobin 7.9 % 4.3-6.0 potassium, serum 5.3 mmol/L 3.5-5.2 chloride, serum 101 mmol/L 98-107 carbon dioxide, venous blood 36.9 mmol/L 21.0-32 .0 blood glucose 151 mg/dL 65-110 calcium, serum 8.7 mg/dL 8.5-10.1 Lab Report: CBC, Basic Metabolic Panel, HGBA1C - Chemistry sodium, serum 138 mmol/L 001-885 6888/05/23 potassium, serum 4.9 mmol/L 3.5-5.2 chloride, serum 98 mmol/L 98-107 carbon dioxide, venous blood 28.8 mmol/L 21.0-32 .0 blood glucose 116 mg/dL 65-110 calcium, serum 9.2 mg/dL 8.5-10.1 urea nitrogen, blood 24 mg/dL 7-18 creatinine, serum 2.00 mg/dL 0.60-1.30 hemoglobin A1C, blood, as % of total hemoglobin 7.1 % 4.3-6.0 Lab Report: CBC, Basic Metabolic Panel, HGBA1C - Hematology mean corpuscular volume, RBC 98 fL 80-97 hematocrit, blood 36.8 % 36.0-46.0 hemoglobin, blood 11.8 g/dL 12.0-16.0 erythrocyte (RBC) count 3.76 UL 10*6/mm3 4.04-5.48 leukocyte count, blood 6.3 UL 10*3/mm3 4.6-10.2 mean corpuscular hemoglobin, RBC 31.4 pg 27. [...] 0.39 mg/dL 0.00-1.00 cholesterol, serum 345 mg/dL 342-767 5443/08/26 triglyceride, serum, fasting 635 mg/dL 30-200 HDL cholesterol, serum 46 mg/dL 32-96 LDL cholesterol, serum 161.00 mg/dL 5.00-130.00 hemoglobin A1C, blood, as % of total hemoglobin 7.6 % 4.3-6.0 albumin/creatinine ratio, urine < 30 mg/g mg/g{creat} 0-2 9 Lab Report: CBC, Comp. Metabolic Panel, Lipid Panel, HGBA1C, MICROALBUMI ... - Hematology erythrocyte (RBC) count 3.69 10^6/MM^3 10*6/mm3 4.04-5.4 8 hemoglobin, blood 11.3 g/dL 12.0-16.0 hematocrit, blood 35.5 % 36.0-46.0 mean corpuscular volume, RBC 96 fL 80-97 mean corpuscular hemoglobin, RBC 30.6 pg 27. 0-31.2 leukocyte count, blood 6.0 10^3/MM^3 10*3/mm3 4.6-10.2 mean corpuscular hemoglobin concentration, RBC 31.8 G/DL % 31.8-35.4 red blood cell distribution width 14.5 % 11 .6-14.8 platelet count 301 10^3/MM^3 10*3/mm3 142-424 Lab Report: CBC, Comp. Metabolic Panel, Lipid Panel, HGBA1C, MICROALBUMI ... - Lab microalbumin, urine 10 0-19 Lab Report: CBC, Renal Panel - Chemistry sodium, serum 136 mmol/L 615-507 1273/01/06 potassium, serum 5.1 mmol/L 3.5-5.2 chloride, serum 95 mmol/L 98-107 carbon dioxide, venous blood 28.8 mmol/L 21.0-32 .0 blood glucose 240 mg/dL 65-110 urea nitrogen, blood 30 mg/dL 7-18 creatinine, serum 1.80 mg/dL 0.60-1.30 calcium, serum 10.3 mg/dL 8.5-10.1 Lab Report: CBC, Renal Panel - Hematolog y mean corpuscular hemoglobin, RBC 31.6 pg 27. 0-31.2 mean corpuscular hemoglobin concentration, RBC 32.6 G/DL % 31.8-35.4 red blood cell distribution width 14.5 % 11 .6-14.8 platelet count 346 10^3/MM^3 10*3/mm3 770-775 5689/01/06 leukocyte count, blood 7.5 10^3/MM^3 10*3/mm3 4.6-10.2 erythrocyte (RBC) count 4.14 10^6/MM^3 10*6/mm3 4.04-5.4 8 hemoglobin, blood 13.1 g/dL 12.0-16.0 hematocrit, blood 40.2 % 36.0-46.0 mean corpuscular volume, RBC 97 fL 80-97 Lab Report: Chlamydia/GC DNA, SDA - Lab chlamydia DNA probe NOT DETECTED NOT DETECTED Lab Report: Chlamydia/GC DNA, SDA - Micr obiology Neisseria gonorrhoeae DNA probe NOT DETECTED NO T DETECTED Lab Report: Potassium - Chemistry potassium, serum 4.6 mmol/L 3.5-5.2 Lab Report: Renal Panel - Chemistry sodium, serum 139 mmol/L 941-013 6856/08/26 potassium, serum 5.8 mmol/L 3.5-5.2 chloride, serum 98 mmol/L 98-107 carbon dioxide, venous blood 33.0 mmol/L 21.0-32 .0 blood glucose 107 mg/dL 65-110 urea nitrogen, blood 26 mg/dL 7-18 creatinine, serum 1.80 mg/dL 0.60-1.30 calcium, serum 9.3 mg/dL 8.5-10.1 sodium, serum 138 mmol/L 252-829 8727/06/17 potassium, serum 4.9 mmol/L 3.5-5.2 chloride, serum 100 mmol/L 98-107 carbon dioxide, venous blood 28.1 mmol/L 21.0-32 .0 blood glucose 108 mg/dL 65-110 urea nitrogen, blood 20 mg/dL 7-18 creatinine, serum 1.60 mg/dL 0.60-1.30 calcium, serum 9.5 mg/dL 8.5-10.1 Lab Report: UADIP W/MICRO, AUTO - Chemis try RBC, urine, dipstick Negative Negative RBC, urine, dipstick Negative Negative protein, total urine random Negative mg/dL Negative protein, total urine random Negative mg/dL Negative Lab Report: UADIP W/MICRO, AUTO - Urinal ysis glucose, urine, semiquantitative Negative Neg ative specific gravity, urine 1.010 1.000-1.030 pH, urine, semiquantitative 6.0 5.0-8.5 glucose, urine, semiquantitative Negative Neg ative urobilinogen, urine, semiquantitative (dipstick) 0.2 Normal leukocyte esterase, urine, by dipstick Negative Negative nitrite, urine, semiquantitative Negative Neg ative appearance, urine Clear Clear urine color Straw Colorless;Lightyellow;St raw;Yellow ketones, urine, by test strip Negative Negati ve bilirubin, urine Negative Negative urobilinogen, urine, semiquantitative (dipstick) 0.2 Normal leukocyte esterase, urine, by dipstick Negative Negative nitrite, urine, semiquantitative Negative Neg ative appearance, urine Clear Clear specific gravity, urine 1.010 1.000-1.030 pH, urine, semiquantitative 5.5 5.0-8.5 urine color Light yellow Colorless;Lightyellow; Straw;Yellow ketones, urine, by test strip Negative Negati ve bilirubin, urine Negative Negative Office Visit: med check - Chemistry cholesterol, [...] mg/dL Encounters Code Encounter Date Provider Facility CPT-24633 Level 4 Est. Patient 14:52:45 [facility] Baltazar Childers MD [facility] CPT-56968 Level 4 Est. Patient 14:18:34 [facility] Baltazar Childers MD [facility] CPT-30623 Level 4 Est. Patient 15:18:29 CDT Baltazar Childers MD [facility] CPT-67215 Level 3 Est. Patient 12:45:34 CDT Baltazar Childers MD [facility] CPT-17347 Level 3 Est. Patient 10:10:11 CDT Baltazar Childers MD [facility] CPT-51343 Level 3 Est. Patient 14:07:50 CDT Baltazar Childers MD [facility] CPT-02262 Level 4 Est. Patient 12:26:10 [facility] Baltazar Childers MD [facility] CPT-61002 Level 4 Est. Patient 14:45:38 CDT Baltazar Childers MD [facility] CPT-15374 Level 4 New Patient 12:30:48 CDT Baltazar hinton MD [facility] Procedures Code Procedure Name Date Entry Date Standard Desc ription CPT-65391 First Vx Component - Ix admi n via ID IM or jet inj without physician counseling 15:17:19 [facility] CPT-96194 Pneumovax 23 15:17:19 [facility] CPT-54814 Pneumovax 14:52:45 [facility] CPT-94854 Venipuncture Draw Fee 14:06:30 [facility] CPT-000 Give Appropriate Flu Vaccine 14:18:34 [facility] 2 CPT-76499 Administration single or combination vac cine inc oral 14:46:00 [facility] CPT-43210 Influenza split virus > age 3 14:46:00 [facility] CPT-OV Office Visit 19:13:16 CDT CPT-14329 Zostavax 18:41:56 CDT CPT-40367 Administration single or combination vac cine inc oral 12:56:39 CDT CPT-46252 Zoster Vaccine (Zostavax) 12:56:39 CDT 2012 CPT-40738 Venipuncture Draw Fee 10:58:57 CDT CPT-50959 Sono pelvis non OB uterus ovaries cervix 17:45:04 CDT CPT-43186 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
--- OUTSIDE RECORDS SUMMARY | 2019-10-27 13:43 | XMS REPORT | Clinical Summary ---
Author Author Admin, Elba Lance [facility] Address Unknown Phone Allergies, Adverse Reactions, [...] y atherosclerosis of unspecified type of vessel, [place] [...] tab every 6-8 hour s PRN HYDROCODONE-ACETAMINOPHEN 61170354957 Active Baltazar Childers MD Active NORTRIPTYLINE HCL 50 MG CAPS 1 every night for neuropathy 4 NORTRIPTYLINE HCL 28252278866 Active Baltazar Childers MD Acti ve GABAPENTIN 300 MG CAPS 1 three times a day GABAPE NTIN 02027219587 Active Baltazar Childers MD Active GABAPENTIN 300 MG CAPS 1 po qd x 2 days, then 1 po BID x 2 d ays, then 1 po TID GABAPENTIN 78899030244 No Longer Active Baltazar silverman MD Active TRAMADOL HCL 50 MG TABS 1 twice a day as needed for pain TRAMADOL HCL 34040368376 Active Baltazar Childers MD Active NAPROXEN 500 MG TABS 1 tablet by mouth twice daily NAPROXEN 38343740491 No Longer Active Baltazar Childers MD Active PROAIR HFA 108 (90 BASE) MCG/ACT AERS 2 puffs four times a d ay as needed ALBUTEROL SULFATE 46744999217 Active Baltazar Childers MD Active DEPO-TESTOSTERONE 200 MG/ML OIL as directed RUFINO TOSTERONE CYPIONATE 66301232626 No Longer Active Baltazar Childers MD Active LIPITOR 20 MG TABS Take one by mouth daily in evening ATORVASTATIN CALCIUM 45736756029 No Longer Active Baltazar Childers MD Activ e CRESTOR 10 MG TABS 1 by mouth every day R OSUVASTATIN CALCIUM 42384325039 No Longer Active Baltazar Childers MD Activ e PHENTERMINE HCL 37.5 MG TABS Take one by mouth daily 2 PHENTERMINE HCL 83871023742 No Longer Active Baltazar Childers MD Activ e ROBAXIN-750 750 MG TABS Take one by mouth daily ME THOCARBAMOL 25656684675 Active Baltazar Childers MD Active TIZANIDINE HCL 4 MG TABS 1 daily as needed for muscle spasm 2011 TIZANIDINE HCL 43466589179 No Longer Active Dawna Salazar RN Active ONETOUCH ULTRA BLUE STRP Test twice a day GLUCO SE BLOOD 11234562856 Active Baltazar Childers MD Active [id number] 50-325-40 MG TABS 1 four time s a day as needed for heacache [id number] 52784472957 Active Baltazar Childers MD Active SUMATRIPTAN SUCCINATE 100 MG TABS 1 tablet by mouth at onset of migraine as needed SUMATRIPTAN SUCCINATE 82389980818 Active Shireen Miller APRN Active LORATADINE 10 MG TABS Take one by mouth daily LORATADINE 49625510232 Active Brad Hughes Active FUROSEMIDE 40 MG TABS Take one by mouth daily FUROSEMIDE 37264939453 Active Shireen Miller APRN Active LISINOPRIL 20 MG TABS Take one by mouth daily at bedtime LISINOPRIL 43662048332 Active Shireen Miller APRN Active OMEPRAZOLE 20 MG CPDR Take one by mouth daily OMEPRAZOLE 56759461680 Active Shireen Miller APRN Active HYDROXYZINE HCL 25 MG TABS Take one by mouth daily HYDROXYZINE HCL 63948301785 Active Shireen Miller APRN Active GLIPIZIDE 10 MG TABS 1 tablet by mouth twice daily GLIPIZIDE 30369785096 Active Shireen Miller APRN Active ALPRAZOLAM 1 MG TABS 1 tablet by mouth daily at bedtime for restles s leg ALPRAZOLAM 18840077069 Active Baltazar Childers MD Active METFORMIN HCL 1000 MG TABS Take one by mouth twice daily METFORMIN HCL 49132216195 Active Shireen Miller APRN Active TIZANIDINE HCL 4 MG TABS 1 daily as needed for muscle spasm 2011 TIZANIDINE HCL 4 MG TABS 945851 TIZANIDINE HCL Inactiv e PHENTERMINE HCL 37.5 MG TABS Take one by mouth daily 2 PHENTERMINE HCL 37.5 MG TABS 486813 PHENTERMINE HCL Inactive CRESTOR 10 MG TABS 1 by mouth every day C RESTOR 10 MG TABS ROSUVASTATIN CALCIUM Inactive LIPITOR 20 MG TABS Take one by mouth daily in evening LIPITOR 20 MG TABS 435871 ATORVASTATIN CALCIUM Inactive DEPO-TESTOSTERONE 200 MG/ML OIL as directed 8 DEPO-TESTOSTERONE 200 MG/ML OIL 876152 TESTOSTERONE CYPIONATE Inactive NAPROXEN 500 MG TABS 1 tablet by mouth twice daily 201 07/27/22 NAPROXEN 500 MG TABS 811665 NAPROXEN Inactive GABAPENTIN 300 MG CAPS 1 po qd x 2 days, then 1 po BID x 2 d ays, then 1 po TID GABAPENTIN 300 MG CAPS 057452 GABAPENTIN Inact amie Immunizations Vaccine Administration Date Value Standard Floyd cription pneumococcal immunization administered Pneumovax 23 [CVX33] pneumococcal polysaccharide vaccine, 23 valent Seasonal influenza vaccine, injectable, containing preservative, for > 3 years old (Afluria, FluLaval, Fluzone, Fluvirin, Fluarix, Agriflu(>= 18 yo)) Fluzone (>3 yrs.) [[id number]] Influenza, seasonal, inject able Seasonal influenza vaccine, injectable, containing preservative, for > 3 years old (Afluria, FluLaval, Fluzone, Fluvirin, Fluarix, Agriflu(>= 18 yo)) Fluzone (>3 yrs.) [[id number]] Influenza, seasonal, inject able Vital Signs Date [...] C - Chemistry sodium, serum 140 mmol/L 702-480 2495/02/26 potassium, serum 5.3 mmol/L 3.5-5.2 chloride, serum 101 mmol/L 98-107 carbon dioxide, venous blood 36.9 mmol/L 21.0-32 .0 blood glucose 151 mg/dL 65-110 calcium, serum 8.7 mg/dL 8.5-10.1 urea nitrogen, blood 19 mg/dL 7-18 creatinine, serum 1.60 mg/dL 0.60-1.30 hemoglobin A1C, blood, as % of total hemoglobin 7.9 % 4.3-6.0 Lab Report: CBC, Basic Metabolic Panel, HGBA1C - Chemistry sodium, serum 138 mmol/L 494-474 9600/05/23 potassium, serum 4.9 mmol/L 3.5-5.2 chloride, serum [...] 0.39 mg/dL 0.00-1.00 cholesterol, serum 345 mg/dL 561-984 5831/08/26 triglyceride, serum, fasting 635 mg/dL 30-200 HDL [...] Panel - Chemistry sodium, serum 136 mmol/L 533-122 1851/01/06 potassium, serum 5.1 mmol/L 3.5-5.2 chloride, serum [...] Panel - Chemistry sodium, serum 139 mmol/L 538-827 8162/08/26 potassium, serum 5.8 mmol/L 3.5-5.2 chloride, serum 98 mmol/L 98-107 carbon dioxide, venous blood 33.0 mmol/L 21.0-32 .0 blood glucose 107 mg/dL 65-110 urea nitrogen, blood 26 mg/dL 7-18 creatinine, serum 1.80 mg/dL 0.60-1.30 calcium, serum 9.3 mg/dL 8.5-10.1 sodium, serum 138 mmol/L 484-994 1493/06/17 potassium, serum 4.9 mmol/L 3.5-5.2 chloride, serum [...] mg/dL Encounters Code Encounter Date Provider Facility CPT-94967 Level 4 Est. Patient 14:52:45 MUD JACK NOZZLEMAN Baltazar Childers MD [facility] CPT-40894 Level 4 Est. Patient 14:18:34 MUD J[employer] NOZZLEMAN Baltazar Childers MD [facility] CPT-59095 Level 4 Est. Patient 15:18:29 CDT Baltazar Childers MD [facility] CPT-69664 Level 3 Est. Patient 12:45:34 CDT Baltazar Childers MD [facility] CPT-06184 Level 3 Est. Patient 10:10:11 CDT Baltazar Childers MD [facility] CPT-94104 Level 3 Est. Patient 14:07:50 CDT Baltazar Childers MD [facility] CPT-46651 Level 4 Est. Patient 12:26:10 M[employer] JACK NOZZLEMAN Baltazar Childers MD [facility] CPT-13966 Level 4 Est. Patient 14:45:38 CDT Baltazar Childers MD [facility] CPT-33178 Level 4 New Patient 12:30:48 CDT Baltazar hinton MD [facility] Procedures Code Procedure Name Date Entry Date Standard Desc ription CPT-71491 First Vx Component - Ix admi n via ID IM or jet inj without physician counseling 15:17:19 MUD JACK NOZZLEMAN CPT-73926 Pneumovax 15:17:19 M[employer] J[employer]LE[employer] CPT-94344 Pneumovax 14:52:45 M[employer] J[employer]ZZLE[employer] CPT-86137 Venipuncture Draw Fee 14:06:30 M[employer] JACK NOZZLE[employer] CPT-000 Give Appropriate Flu Vaccine 14:18:34 MUD JACK NOZZLEMAN 2 CPT-39023 Administration single or combination vac cine inc oral 14:46:00 MUD JACK NOZZLEMAN CPT-98486 Influenza split virus > age 3 14:46:00 MUD JACK NOZZLEMAN CPT-OV Office Visit 19:13:16 CDT CPT-14928 Zostavax 18:41:56 CDT CPT-01697 Administration single or combination vac cine inc oral 12:56:39 CDT CPT-08351 Zoster Vaccine (Zostavax) 12:56:39 CDT 2012 CPT-12466 Venipuncture Draw Fee 10:58:57 CDT CPT-16680 Sono pelvis non OB uterus ovaries cervix 17:45:04 CDT CPT-30575 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
--- OUTSIDE RECORDS SUMMARY | 2019-10-27 13:43 | XMS REPORT | Clinical Summary ---
Author Author Admin, Elba Lance [facility] Address Unknown Phone Allergies, Adverse Reactions, Alerts [...] y atherosclerosis of unspecified type of vessel, [place] or graft OTH NONSPC ABN FINDNG [...] tab every 6-8 hour s PRN HYDROCODONE-ACETAMINOPHEN 98391266353 Active Baltazar Childers MD Active NORTRIPTYLINE HCL 50 MG CAPS 1 every night for neuropathy 4 NORTRIPTYLINE HCL 03090443994 Active Baltazar Childers MD Acti ve GABAPENTIN 300 MG CAPS 1 three times a day GABAPE NTIN 53990432907 Active Baltazar Childers MD Active GABAPENTIN 300 MG CAPS 1 po qd x 2 days, then 1 po BID x 2 d ays, then 1 po TID GABAPENTIN 29921521949 No Longer Active Baltazar silverman MD Active TRAMADOL HCL 50 MG TABS 1 twice a day as needed for pain TRAMADOL HCL 07299825603 Active Baltazar Childers MD Active NAPROXEN 500 MG TABS 1 tablet by mouth twice daily NAPROXEN 36226263162 No Longer Active Baltazar Childers MD Active PROAIR HFA 108 (90 BASE) MCG/ACT AERS 2 puffs four times a d ay as needed ALBUTEROL SULFATE 84866045008 Active Baltazar Childers MD Active DEPO-TESTOSTERONE 200 MG/ML OIL as directed RUFINO TOSTERONE CYPIONATE 30366538024 No Longer Active Baltazar Childers MD Active LIPITOR 20 MG TABS Take one by mouth daily in evening ATORVASTATIN CALCIUM 84209547633 No Longer Active Baltazar Childers MD Activ e CRESTOR 10 MG TABS 1 by mouth every day R OSUVASTATIN CALCIUM 49789505950 No Longer Active Baltazar Childers MD Activ e PHENTERMINE HCL 37.5 MG TABS Take one by mouth daily 2 PHENTERMINE HCL 50899465548 No Longer Active Baltazar Childers MD Activ e ROBAXIN-750 750 MG TABS Take one by mouth daily ME THOCARBAMOL 24711269853 Active Baltazar Childers MD Active TIZANIDINE HCL 4 MG TABS 1 daily as needed for muscle spasm 2011 TIZANIDINE HCL 57027783438 No Longer Active Dawna Salazar RN Active ONETOUCH ULTRA BLUE STRP Test twice a day GLUCO SE BLOOD 91238909667 Active Baltazar Childers MD Active [id number]-UBEG-RTRQFXDE 50-325-40 MG TABS 1 four time s a day as needed for heacache [id number] 21830609581 Active Baltazar Childers MD Active SUMATRIPTAN SUCCINATE 100 MG TABS 1 tablet by mouth at onset of migraine as needed SUMATRIPTAN SUCCINATE 19974109030 Active Shireen Miller APRN Active LORATADINE 10 MG TABS Take one by mouth daily LORATADINE 85679518072 Active Brad Hughes Active FUROSEMIDE 40 MG TABS Take one by mouth daily FUROSEMIDE 81679431875 Active Shireen Miller APRN Active LISINOPRIL 20 MG TABS Take one by mouth daily at bedtime LISINOPRIL 92387294898 Active Shireen Miller APRN Active OMEPRAZOLE 20 MG CPDR Take one by mouth daily OMEPRAZOLE 10785694280 Active Shireen Miller APRN Active HYDROXYZINE HCL 25 MG TABS Take one by mouth daily HYDROXYZINE HCL 79045104115 Active Shireen Miller APRN Active GLIPIZIDE 10 MG TABS 1 tablet by mouth twice daily GLIPIZIDE 47653890833 Active Shireen Miller APRN Active ALPRAZOLAM 1 MG TABS 1 tablet by mouth daily at bedtime for restles s leg ALPRAZOLAM 86345335892 Active Baltazar Childers MD Active METFORMIN HCL 1000 MG TABS Take one by mouth twice daily METFORMIN HCL 09501341185 Active Shireen Miller APRN Active TIZANIDINE HCL 4 MG TABS 1 daily as needed for muscle spasm 2011 TIZANIDINE HCL 4 MG TABS 937016 TIZANIDINE HCL Inactiv e PHENTERMINE HCL 37.5 MG TABS Take one by mouth daily 2 PHENTERMINE HCL 37.5 MG TABS 063772 PHENTERMINE HCL Inactive CRESTOR 10 MG TABS 1 by mouth every day C RESTOR 10 MG TABS ROSUVASTATIN CALCIUM Inactive LIPITOR 20 MG TABS Take one by mouth daily in evening LIPITOR 20 MG TABS 096409 ATORVASTATIN CALCIUM Inactive DEPO-TESTOSTERONE 200 MG/ML OIL as directed 8 DEPO-TESTOSTERONE 200 MG/ML OIL 025572 TESTOSTERONE CYPIONATE Inactive NAPROXEN 500 MG TABS 1 tablet by mouth twice daily 201 07/27/22 NAPROXEN 500 MG TABS 323359 NAPROXEN Inactive GABAPENTIN 300 MG CAPS 1 po qd x 2 days, then 1 po BID x 2 d ays, then 1 po TID GABAPENTIN 300 MG CAPS 427462 GABAPENTIN Inact amie Immunizations Vaccine Administration Date Value Standard Floyd cription pneumococcal immunization administered Pneumovax 23 [CVX33] pneumococcal polysaccharide vaccine, 23 valent Seasonal influenza vaccine, injectable, containing preservative, for > 3 years old (Afluria, FluLaval, Fluzone, Fluvirin, Fluarix, Agriflu(>= 18 yo)) Fluzone (>3 yrs.) [[id number]] Influenza, seasonal, inject able Seasonal influenza vaccine, injectable, containing preservative, for > 3 years old (Afluria, FluLaval, Fluzone, Fluvirin, Fluarix, Agriflu(>= 18 yo)) Fluzone (>3 yrs.) [[id number]] Influenza, seasonal, inject able Vital Signs Date [...] C - Chemistry sodium, serum 140 mmol/L 634-761 1716/02/26 potassium, serum 5.3 mmol/L 3.5-5.2 chloride, serum 101 mmol/L 98-107 carbon dioxide, venous blood 36.9 mmol/L 21.0-32 .0 blood glucose 151 mg/dL 65-110 calcium, serum 8.7 mg/dL 8.5-10.1 urea nitrogen, blood 19 mg/dL 7-18 creatinine, serum 1.60 mg/dL 0.60-1.30 hemoglobin A1C, blood, as % of total hemoglobin 7.9 % 4.3-6.0 Lab Report: CBC, Basic Metabolic Panel, HGBA1C - Chemistry sodium, serum 138 mmol/L 237-692 6900/05/23 potassium, serum 4.9 mmol/L 3.5-5.2 chloride, serum [...] 0.39 mg/dL 0.00-1.00 cholesterol, serum 345 mg/dL 921-444 5358/08/26 triglyceride, serum, fasting 635 mg/dL 30-200 HDL [...] Panel - Chemistry sodium, serum 136 mmol/L 960-808 8831/01/06 potassium, serum 5.1 mmol/L 3.5-5.2 chloride, serum [...] Panel - Chemistry sodium, serum 139 mmol/L 936-259 1445/08/26 potassium, serum 5.8 mmol/L 3.5-5.2 chloride, serum 98 mmol/L 98-107 carbon dioxide, venous blood 33.0 mmol/L 21.0-32 .0 blood glucose 107 mg/dL 65-110 urea nitrogen, blood 26 mg/dL 7-18 creatinine, serum 1.80 mg/dL 0.60-1.30 calcium, serum 9.3 mg/dL 8.5-10.1 sodium, serum 138 mmol/L 426-552 1245/06/17 potassium, serum 4.9 mmol/L 3.5-5.2 chloride, serum [...] mg/dL Encounters Code Encounter Date Provider Facility CPT-89666 Level 4 Est. Patient 14:52:45 SALVAGE WINDER Baltazar Childers MD [facility] CPT-74119 Level 4 Est. Patient 14:18:34 SALVAGE WINDER Baltazar Childers MD [facility] CPT-76769 Level 4 Est. Patient 15:18:29 CDT Baltazar Childers MD [facility] CPT-86153 Level 3 Est. Patient 12:45:34 CDT Baltazar Childers MD [facility] CPT-81856 Level 3 Est. Patient 10:10:11 CDT Baltazar Childers MD [facility] CPT-70882 Level 3 Est. Patient 14:07:50 CDT Baltazar Childers MD [facility] CPT-13656 Level 4 Est. Patient 12:26:10 SALVAGE WINDER Baltazar Childers MD [facility] CPT-45341 Level 4 Est. Patient 14:45:38 CDT Baltazar Childers MD [facility] CPT-20106 Level 4 New Patient 12:30:48 CDT Baltazar hinton MD [facility] Procedures Code Procedure Name Date Entry Date Standard Desc ription CPT-49872 First Vx Component - Ix admi n via ID IM or jet inj without physician counseling 15:17:19 SALVAGE WINDER CPT-25999 Pneumovax 23 15:17:19 SALVAGE WINDER CPT-48988 Pneumovax 14:52:45 SALVAGE WINDER CPT-21116 Venipuncture Draw Fee 14:06:30 SALVAGE WINDER CPT-000 Give Appropriate Flu Vaccine 14:18:34 SALVAGE WINDER 2 CPT-27647 Administration single or combination vac cine inc oral 14:46:00 SALVAGE WINDER CPT-36817 Influenza split virus > age 3 14:46:00 SALVAGE WINDER CPT-OV Office Visit 19:13:16 CDT CPT-63617 Zostavax 18:41:56 CDT CPT-54354 Administration single or combination vac cine inc oral 12:56:39 CDT CPT-61405 Zoster Vaccine (Zostavax) 12:56:39 CDT 2012 CPT-69290 Venipuncture Draw Fee 10:58:57 CDT CPT-55756 Sono pelvis non OB uterus ovaries cervix 17:45:04 CDT CPT-30934 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
--- OUTSIDE RECORDS SUMMARY | 2019-10-27 13:44 | XMS REPORT | Clinical Summary ---
[...] libido COLON POLYPS 211.3 Resolved Lolis Thomas [employer] Benign neoplasm of colon PERIPHERAL NEUROPATHY 356.9 [...] y atherosclerosis of unspecified type of vessel, [place] [...] tab every 6-8 hour s PRN HYDROCODONE-ACETAMINOPHEN 60031646684 Active Baltazar Childers MD Active NORTRIPTYLINE HCL 50 MG CAPS 1 every night for neuropathy 4 NORTRIPTYLINE HCL 40052029303 Active Baltazar Childers MD Acti ve GABAPENTIN 300 MG CAPS 1 three times a day GABAPE NTIN 00777360891 Active Baltazar Childers MD Active GABAPENTIN 300 MG CAPS 1 po qd x 2 days, then 1 po BID x 2 d ays, then 1 po TID GABAPENTIN 21960934215 No Longer Active Baltazar silverman MD Active TRAMADOL HCL 50 MG TABS 1 twice a day as needed for pain TRAMADOL HCL 26030034251 Active Baltazar Childers MD Active NAPROXEN 500 MG TABS 1 tablet by mouth twice daily NAPROXEN 85185901489 No Longer Active Baltazar Childers MD Active PROAIR HFA 108 (90 BASE) MCG/ACT AERS 2 puffs four times a d ay as needed ALBUTEROL SULFATE 59538628397 Active Baltazar Childers MD Active DEPO-TESTOSTERONE 200 MG/ML OIL as directed RUFINO TOSTERONE CYPIONATE 94839951746 No Longer Active Baltazar Childers MD Active LIPITOR 20 MG TABS Take one by mouth daily in evening ATORVASTATIN CALCIUM 00537943512 No Longer Active Baltazar Childers MD Activ e CRESTOR 10 MG TABS 1 by mouth every day R OSUVASTATIN CALCIUM 26154784952 No Longer Active Baltazar Childers MD Activ e PHENTERMINE HCL 37.5 MG TABS Take one by mouth daily 2 PHENTERMINE HCL 75725589729 No Longer Active Baltazar Childers MD Activ e ROBAXIN-750 750 MG TABS Take one by mouth daily ME THOCARBAMOL 27317839820 Active Baltazar Childers MD Active TIZANIDINE HCL 4 MG TABS 1 daily as needed for muscle spasm 2011 TIZANIDINE HCL 46112953167 No Longer Active Dawna Salazar RN Active ONETOUCH ULTRA BLUE STRP Test twice a day GLUCO SE BLOOD 42959754018 Active Baltazar Childers MD Active VITXJDATBX-QVAI-DVMKIPFQ 50-325-40 MG TABS 1 four time s a day as needed for heacache OZIOGAAKOJ-[id number] 41316384185 Active Baltazra Childers MD Active SUMATRIPTAN SUCCINATE 100 MG TABS 1 tablet by mouth at onset of migraine as needed SUMATRIPTAN SUCCINATE 30942813715 Active Baltazar bynum MD Active LORATADINE 10 MG TABS Take one by mouth daily LORATADINE 71602178993 Active Baltazar Childers MD Active FUROSEMIDE 40 MG TABS Take one by mouth daily FUROSEMIDE 41483521477 Active Baltazar Childers MD Active LISINOPRIL 20 MG TABS Take one by mouth daily at bedtime LISINOPRIL 95875701258 Active Baltazar Childers MD Active OMEPRAZOLE 20 MG CPDR Take one by mouth daily OMEPRAZOLE 95078080355 Active Baltazar Childers MD Active HYDROXYZINE HCL 25 MG TABS Take one by mouth daily HYDROXYZINE HCL 83835691363 Active Baltazar Childers MD Active GLIPIZIDE 10 MG TABS 1 tablet by mouth twice daily GLIPIZIDE 93406959769 Active Baltazar Childers MD Active ALPRAZOLAM 1 MG TABS 1 tablet by mouth daily at bedtime for restles s leg ALPRAZOLAM 19644417559 Active Baltazar Childers MD Active METFORMIN HCL 1000 MG TABS Take one by mouth twice daily METFORMIN HCL 77387063133 Active Baltazar Childers MD Active TIZANIDINE HCL 4 MG TABS 1 daily as needed for muscle spasm 2011 TIZANIDINE HCL 4 MG TABS 917729 TIZANIDINE HCL Inactiv e PHENTERMINE HCL 37.5 MG TABS Take one by mouth daily 2 PHENTERMINE HCL 37.5 MG TABS 529555 PHENTERMINE HCL Inactive CRESTOR 10 MG TABS 1 by mouth every day C RESTOR 10 MG TABS ROSUVASTATIN CALCIUM Inactive LIPITOR 20 MG TABS Take one by mouth daily in evening LIPITOR 20 MG TABS 300587 ATORVASTATIN CALCIUM Inactive DEPO-TESTOSTERONE 200 MG/ML OIL as directed 8 DEPO-TESTOSTERONE 200 MG/ML OIL 176154 TESTOSTERONE CYPIONATE Inactive NAPROXEN 500 MG TABS 1 tablet by mouth twice daily 201 07/27/22 NAPROXEN 500 MG TABS 308127 NAPROXEN Inactive GABAPENTIN 300 MG CAPS 1 po qd x 2 days, then 1 po BID x 2 d ays, then 1 po TID GABAPENTIN 300 MG CAPS 079115 GABAPENTIN Inact amie Immunizations Vaccine Administration Date Value Standard Floyd cription pneumococcal immunization administered Pneumovax 23 [CVX33] pneumococcal polysaccharide vaccine, 23 valent Seasonal influenza vaccine, injectable, containing preservative, for > 3 years old (Afluria, FluLaval, Fluzone, Fluvirin, Fluarix, Agriflu(>= 18 yo)) Fluzone (>3 yrs.) [KSD112] Influenza, seasonal, inject able Seasonal influenza vaccine, injectable, containing preservative, for > 3 years old (Afluria, FluLaval, Fluzone, Fluvirin, Fluarix, Agriflu(>= 18 yo)) Fluzone (>3 yrs.) [[id number]] Influenza, seasonal, inject able Vital Signs Date [...] C - Chemistry sodium, serum 140 mmol/L 918-573 6812/02/26 potassium, serum 5.3 mmol/L 3.5-5.2 chloride, serum [...] 0.39 mg/dL 0.00-1.00 cholesterol, serum 345 mg/dL 260-098 5003/08/26 triglyceride, serum, fasting 635 mg/dL 30-200 HDL [...] Panel - Chemistry sodium, serum 136 mmol/L 262-883 8214/01/06 potassium, serum 5.1 mmol/L 3.5-5.2 chloride, serum [...] Panel - Chemistry sodium, serum 139 mmol/L 511-050 8239/08/26 potassium, serum 5.8 mmol/L 3.5-5.2 chloride, serum [...] mg/dL Encounters Code Encounter Date Provider Facility CPT-87026 Level 4 Est. Patient 12:20:13 CDT Baltazar Childers MD [facility] CPT-15656 Level 4 Est. Patient 14:52:45 KILN STACKER Baltazar Childers MD [facility] CPT-53133 Level 4 Est. Patient 14:18:34 K[employer]N STACKER Baltazar Childers MD [facility] CPT-15153 Level 4 Est. Patient 15:18:29 CDT Baltazar Childers MD [facility] CPT-03140 Level 3 Est. Patient 12:45:34 CDT Baltazar Childers MD [facility] CPT-13095 Level 3 Est. Patient 10:10:11 CDT Baltazar Childers MD [facility] CPT-09865 Level 3 Est. Patient 14:07:50 CDT Baltazar Childers MD [facility] CPT-09163 Level 4 Est. Patient 12:26:10 KILN STACKER Baltazar hCilders MD [facility] CPT-17248 Level 4 Est. Patient 14:45:38 CDT Baltazar Childers MD [facility] CPT-16656 Level 4 New Patient 12:30:48 CDT Baltazar hinton MD [facility] Procedures Code Procedure Name Date Entry Date Standard Desc ription CPT-27625 First Vx Component - Ix admi n via ID IM or jet inj without physician counseling 15:17:19 KILN STACKER CPT-04532 Pneumovax 15:17:19 [employer]N ST[employer]ER CPT-80741 Pneumovax 14:52:45 KILN STACKER CPT-22576 Venipuncture Draw Fee 14:06:30 KILN STACKER CPT-000 Give Appropriate Flu Vaccine 14:18:34 KILN STACKER 2 CPT-08550 Administration single or combination vac cine inc oral 14:46:00 KILN STACKER CPT-31324 Influenza split virus > age 3 14:46:00 KILN STACKER CPT-OV Office Visit 19:13:16 CDT CPT-24883 Zostavax 18:41:56 CDT CPT-30543 Administration single or combination vac cine inc oral 12:56:39 CDT CPT-84187 Zoster Vaccine (Zostavax) 12:56:39 CDT 2012 CPT-90987 Venipuncture Draw Fee 10:58:57 CDT CPT-34590 Sono pelvis non OB uterus ovaries cervix 17:45:04 CDT CPT-99477 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
--- OUTSIDE RECORDS SUMMARY | 2019-10-27 13:44 | XMS REPORT | Clinical Summary ---
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 Benign neoplasm of colon PERIPHERAL NEUROPATHY [...] y atherosclerosis of unspecified type of vessel, [place] or graft OTH NONSPC ABN FINDNG RAD&OTH [...] tab every 6-8 hour s PRN HYDROCODONE-ACETAMINOPHEN 79955002175 Active Baltazar Childers MD Active NORTRIPTYLINE HCL 50 MG CAPS 1 every night for neuropathy 4 NORTRIPTYLINE HCL 36841684577 Active Baltazar Childers MD Acti ve GABAPENTIN 300 MG CAPS 1 three times a day GABAPE NTIN 11042598248 Active Baltazar Childers MD Active GABAPENTIN 300 MG CAPS 1 po qd x 2 days, then 1 po BID x 2 d ays, then 1 po TID GABAPENTIN 96403842758 No Longer Active Baltazar silverman MD Active TRAMADOL HCL 50 MG TABS 1 twice a day as needed for pain TRAMADOL HCL 29829142859 Active Baltazar Childers MD Active NAPROXEN 500 MG TABS 1 tablet by mouth twice daily NAPROXEN 62359053064 No Longer Active Baltazar Childers MD Active PROAIR HFA 108 (90 BASE) MCG/ACT AERS 2 puffs four times a d ay as needed ALBUTEROL SULFATE 07332168966 Active Baltazar Childers MD Active DEPO-TESTOSTERONE 200 MG/ML OIL as directed RUFINO TOSTERONE CYPIONATE 36203261714 No Longer Active Baltazar Childers MD Active LIPITOR 20 MG TABS Take one by mouth daily in evening ATORVASTATIN CALCIUM 65306027746 No Longer Active Baltazar Childers MD Activ e CRESTOR 10 MG TABS 1 by mouth every day R OSUVASTATIN CALCIUM 09883361043 No Longer Active Baltazar Childers MD Activ e PHENTERMINE HCL 37.5 MG TABS Take one by mouth daily 2 PHENTERMINE HCL 56053261485 No Longer Active Baltazar Childers MD Activ e ROBAXIN-750 750 MG TABS Take one by mouth daily ME THOCARBAMOL 41189092903 Active Baltazar Childers MD Active TIZANIDINE HCL 4 MG TABS 1 daily as needed for muscle spasm 2011 TIZANIDINE HCL 22209225291 No Longer Active Dawna Salazar RN Active ONETOUCH ULTRA BLUE STRP Test twice a day GLUCO SE BLOOD 78504338581 Active Baltazar Childers MD Active [id number] 50-325-40 MG TABS 1 four time s a day as needed for heacache [id number] 61587417533 Active Baltazar Childers MD Active SUMATRIPTAN SUCCINATE 100 MG TABS 1 tablet by mouth at onset of migraine as needed SUMATRIPTAN SUCCINATE 00076120139 Active Baltazar bynum MD Active LORATADINE 10 MG TABS Take one by mouth daily LORATADINE 65881574109 Active Baltazar Childers MD Active FUROSEMIDE 40 MG TABS Take one by mouth daily FUROSEMIDE 89127380717 Active Baltazar Childers MD Active LISINOPRIL 20 MG TABS Take one by mouth daily at bedtime LISINOPRIL 06914255323 Active Baltazar Childers MD Active OMEPRAZOLE 20 MG CPDR Take one by mouth daily OMEPRAZOLE 76913308306 Active Baltazar Childers MD Active HYDROXYZINE HCL 25 MG TABS Take one by mouth daily HYDROXYZINE HCL 94985377306 Active Baltazar Childers MD Active GLIPIZIDE 10 MG TABS 1 tablet by mouth twice daily GLIPIZIDE 87255854714 Active Baltazar Childers MD Active ALPRAZOLAM 1 MG TABS 1 tablet by mouth daily at bedtime for restles s leg ALPRAZOLAM 00717886132 Active Baltazar Childers MD Active METFORMIN HCL 1000 MG TABS Take one by mouth twice daily METFORMIN HCL 13784744225 Active Baltazar Childers MD Active TIZANIDINE HCL 4 MG TABS 1 daily as needed for muscle spasm 2011 TIZANIDINE HCL 4 MG TABS 251681 TIZANIDINE HCL Inactiv e PHENTERMINE HCL 37.5 MG TABS Take one by mouth daily 2 PHENTERMINE HCL 37.5 MG TABS 139844 PHENTERMINE HCL Inactive CRESTOR 10 MG TABS 1 by mouth every day C RESTOR 10 MG TABS ROSUVASTATIN CALCIUM Inactive LIPITOR 20 MG TABS Take one by mouth daily in evening LIPITOR 20 MG TABS 449126 ATORVASTATIN CALCIUM Inactive DEPO-TESTOSTERONE 200 MG/ML OIL as directed 8 DEPO-TESTOSTERONE 200 MG/ML OIL 684857 TESTOSTERONE CYPIONATE Inactive NAPROXEN 500 MG TABS 1 tablet by mouth twice daily 201 07/27/22 NAPROXEN 500 MG TABS 051349 NAPROXEN Inactive GABAPENTIN 300 MG CAPS 1 po qd x 2 days, then 1 po BID x 2 d ays, then 1 po TID GABAPENTIN 300 MG CAPS 923158 GABAPENTIN Inact amie Immunizations Vaccine Administration Date Value Standard Floyd cription pneumococcal immunization administered Pneumovax 23 [CVX33] pneumococcal polysaccharide vaccine, 23 valent Seasonal influenza vaccine, injectable, containing preservative, for > 3 years old (Afluria, FluLaval, Fluzone, Fluvirin, Fluarix, Agriflu(>= 18 yo)) Fluzone (>3 yrs.) [[id number]] Influenza, seasonal, inject able Seasonal influenza vaccine, injectable, containing preservative, for > 3 years old (Afluria, FluLaval, Fluzone, Fluvirin, Fluarix, Agriflu(>= 18 yo)) Fluzone (>3 yrs.) [[id number]] Influenza, seasonal, inject able Vital Signs Date Name Value Unit Range Description blood pressure, diastolic - 8462-4 76 mm[Hg] BP aslmeron blood pressure, systolic - 8480-6 134 mm[Hg] [...] C - Chemistry sodium, serum 140 mmol/L 247-449 0426/02/26 potassium, serum 5.3 mmol/L 3.5-5.2 chloride, serum 101 mmol/L 98-107 carbon dioxide, venous blood 36.9 mmol/L 21.0-32 .0 blood glucose 151 mg/dL 65-110 calcium, serum 8.7 mg/dL 8.5-10.1 urea nitrogen, blood 19 mg/dL 7-18 creatinine, serum 1.60 mg/dL 0.60-1.30 hemoglobin A1C, blood, as % of total hemoglobin 7.9 % 4.3-6.0 Lab Report: CBC, Comp. Metabolic Panel, Lipid Panel, HGBA1C, MICROALBUMI ... - Chemistry aspartate aminotransferase (SGOT), serum 39 U/L 15-37 alkaline phosphatase, serum 62 U/L 50-136 bilirubin, serum, total 0.39 mg/dL 0.00-1.00 cholesterol, serum 345 mg/dL 175-246 0370/08/26 triglyceride, serum, fasting 635 mg/dL 30-200 HDL cholesterol, serum 46 mg/dL 32-96 LDL cholesterol, serum 161.00 mg/dL 5.00-130.00 hemoglobin A1C, blood, as % of total hemoglobin 7.6 % 4.3-6.0 albumin/creatinine ratio, urine < 30 mg/g mg/g{creat} 0-2 9 alanine aminotransferase (SGPT), serum 76 U/L 12-78 Lab Report: CBC, Comp. Metabolic Panel, Lipid Panel, HGBA1C, MICROALBUMI ... - Hematology platelet count 301 10^3/MM^3 10*3/mm3 272-938 5500/08/26 red blood cell distribution width 14.5 % 11 .6-14.8 mean corpuscular hemoglobin concentration, RBC 31.8 G/DL % 31.8-35.4 mean corpuscular hemoglobin, RBC 30.6 pg 27. 0-31.2 mean corpuscular volume, RBC 96 fL 80-97 hematocrit, blood 35.5 % 36.0-46.0 hemoglobin, blood 11.3 g/dL 12.0-16.0 erythrocyte (RBC) count 3.69 10^6/MM^3 10*6/mm3 4.04-5.4 8 leukocyte count, blood 6.0 10^3/MM^3 10*3/mm3 4.6-10.2 Lab Report: CBC, Comp. Metabolic Panel, Lipid Panel, HGBA1C, MICROALBUMI ... - Lab microalbumin, urine 10 0-19 Lab Report: CBC, Renal Panel - Chemistry blood glucose 240 mg/dL 65-110 urea nitrogen, blood 30 mg/dL 7-18 creatinine, serum 1.80 mg/dL 0.60-1.30 calcium, serum 10.3 mg/dL 8.5-10.1 sodium, serum 136 mmol/L 102-431 7426/01/06 potassium, serum 5.1 mmol/L 3.5-5.2 chloride, serum 95 mmol/L 98-107 carbon dioxide, venous blood 28.8 mmol/L 21.0-32 .0 Lab Report: CBC, Renal Panel - Hematolog [...] Panel - Chemistry sodium, serum 139 mmol/L 136-336 2164/08/26 potassium, serum 5.8 mmol/L 3.5-5.2 chloride, serum 98 mmol/L 98-107 carbon dioxide, venous blood 33.0 mmol/L 21.0-32 .0 blood glucose 107 mg/dL 65-110 urea nitrogen, blood 26 mg/dL 7-18 creatinine, serum 1.80 mg/dL 0.60-1.30 calcium, serum 9.3 mg/dL 8.5-10.1 Lab Report: UADIP W/MICRO, AUTO - Chemis try RBC, urine, dipstick Negative Negative protein, total urine random Negative mg/dL Negative Lab Report: UADIP W/MICRO, AUTO - Urinal ysis glucose, urine, semiquantitative Negative Neg ative urobilinogen, urine, semiquantitative (dipstick) 0.2 Normal appearance, urine Clear Clear specific gravity, urine 1.010 1.000-1.030 pH, urine, semiquantitative 6.0 5.0-8.5 leukocyte esterase, urine, by dipstick Negative Negative nitrite, urine, semiquantitative Negative Neg ative urine color Straw Colorless;Lightyellow;St raw;Yellow ketones, urine, [...] mg/dL Encounters Code Encounter Date Provider Facility CPT-94210 Level 4 Est. Patient 12:20:13 CDT Baltazar Childers MD [facility] CPT-67800 Level 4 Est. Patient 14:52:45 MELTING OPERATOR Baltazar Childers MD [facility] CPT-28501 Level 4 Est. Patient 14:18:34 MELTING OPERATOR Baltazar Childers MD [facility] CPT-28555 Level 4 Est. Patient 15:18:29 CDT Baltazar Childers MD [facility] CPT-15648 Level 3 Est. Patient 12:45:34 CDT Baltazar Childers MD [facility] CPT-79623 Level 3 Est. Patient 10:10:11 CDT Baltazar Childers MD [facility] CPT-66129 Level 3 Est. Patient 14:07:50 CDT Baltazar Childers MD [facility] CPT-90617 Level 4 Est. Patient 12:26:10 MELTING OPERATOR Baltazar Childers MD [facility] CPT-71736 Level 4 Est. Patient 14:45:38 CDT Baltazar Childers MD [facility] CPT-48179 Level 4 New Patient 12:30:48 CDT Baltazar hinton MD [facility] Procedures Code Procedure Name Date Entry Date Standard Desc ription CPT-53663 First Vx Component - Ix admi n via ID IM or jet inj without physician counseling 15:17:19 MELTING OPERATOR CPT-06292 Pneumovax 15:17:19 MELTING OPERATOR CPT-29122 Pneumovax 14:52:45 MELTING OPERATOR CPT-64193 Venipuncture Draw Fee 14:06:30 MELTING OPERATOR CPT-000 Give Appropriate Flu Vaccine 14:18:34 MELTING OPERATOR 2 CPT-25864 Administration single or combination vac cine inc oral 14:46:00 MELTING OPERATOR CPT-30967 Influenza split virus > age 3 14:46:00 MELTING OPERATOR CPT-OV Office Visit 19:13:16 CDT CPT-13224 Zostavax 18:41:56 CDT CPT-59623 Administration single or combination vac cine inc oral 12:56:39 CDT CPT-23821 Zoster Vaccine (Zostavax) 12:56:39 CDT 2012 CPT-30871 Venipuncture Draw Fee 10:58:57 CDT CPT-62852 Sono pelvis non OB uterus ovaries cervix 17:45:04 CDT CPT-36717 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
--- OUTSIDE RECORDS SUMMARY | 2019-10-27 13:44 | XMS REPORT | Clinical Summary ---
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 Benign neoplasm of colon PERIPHERAL NEUROPATHY [...] type of vessel, [place] or graft OTH NONSPC ABN FINDNG RAD&OTH [...] tab every 6-8 hour s PRN HYDROCODONE-ACETAMINOPHEN 93925478993 Active Baltazar Childers MD Active NORTRIPTYLINE HCL 50 MG CAPS 1 every night for neuropathy 4 NORTRIPTYLINE HCL 28463342219 Active Amaris Jason MD PhD Act amie GABAPENTIN 300 MG CAPS 1 three times a day GABAPE NTIN 56307394955 Active Baltazar Childers MD Active GABAPENTIN 300 MG CAPS 1 po qd x 2 days, then 1 po BID x 2 d ays, then 1 po TID GABAPENTIN 47951545900 No Longer Active Baltazar silverman MD Active TRAMADOL HCL 50 MG TABS 1 twice a day as needed for pain TRAMADOL HCL 25710335770 Active Baltazar Childers MD Active NAPROXEN 500 MG TABS 1 tablet by mouth twice daily NAPROXEN 77127096096 No Longer Active Baltazar Childers MD Active PROAIR HFA 108 (90 BASE) MCG/ACT AERS 2 puffs four times a d ay as needed ALBUTEROL SULFATE 35347917197 Active Baltazar Childers MD Active DEPO-TESTOSTERONE 200 MG/ML OIL as directed RUFINO TOSTERONE CYPIONATE 01381616695 No Longer Active Baltazar Childers MD Active LIPITOR 20 MG TABS Take one by mouth daily in evening ATORVASTATIN CALCIUM 43004677608 No Longer Active Baltazar Childers MD Activ e CRESTOR 10 MG TABS 1 by mouth every day R OSUVASTATIN CALCIUM 59254187448 No Longer Active Baltazar Childers MD Activ e PHENTERMINE HCL 37.5 MG TABS Take one by mouth daily 2 PHENTERMINE HCL 54959452969 No Longer Active Baltazar Childers MD Activ e ROBAXIN-750 750 MG TABS Take one by mouth daily ME THOCARBAMOL 97260349068 Active Baltazar Childers MD Active TIZANIDINE HCL 4 MG TABS 1 daily as needed for muscle spasm 2011 TIZANIDINE HCL 15218253811 No Longer Active Dawna Salazar RN Active ONETOUCH ULTRA BLUE STRP Test twice a day GLUCO SE BLOOD 47817180757 Active Baltazar Childers MD Active [id number] 50-325-40 MG TABS 1 four time s a day as needed for heacache [id number] 22597406525 Active Baltazar Childers MD Active SUMATRIPTAN SUCCINATE 100 MG TABS 1 tablet by mouth at onset of migraine as needed SUMATRIPTAN SUCCINATE 50073414902 Active Baltazar bynum MD Active LORATADINE 10 MG TABS Take one by mouth daily LORATADINE 35123798976 Active Baltazar Childers MD Active FUROSEMIDE 40 MG TABS Take one by mouth daily FUROSEMIDE 75564961494 Active Baltazar Childers MD Active LISINOPRIL 20 MG TABS Take one by mouth daily at bedtime LISINOPRIL 19765889005 Active Baltazar Childers MD Active OMEPRAZOLE 20 MG CPDR Take one by mouth daily OMEPRAZOLE 71237510485 Active Baltazar Childers MD Active HYDROXYZINE HCL 25 MG TABS Take one by mouth daily HYDROXYZINE HCL 13979326883 Active Baltazar Childers MD Active GLIPIZIDE 10 MG TABS 1 tablet by mouth twice daily GLIPIZIDE 67189920313 Active Baltazar Childers MD Active ALPRAZOLAM 1 MG TABS 1 tablet by mouth daily at bedtime for restles s leg ALPRAZOLAM 38743094108 Active Baltazar Childers MD Active METFORMIN HCL 1000 MG TABS Take one by mouth twice daily METFORMIN HCL 01811977925 Active Baltazar Childers MD Active TIZANIDINE HCL 4 MG TABS 1 daily as needed for muscle spasm 2011 TIZANIDINE HCL 4 MG TABS 006755 TIZANIDINE HCL Inactiv e PHENTERMINE HCL 37.5 MG TABS Take one by mouth daily 2 PHENTERMINE HCL 37.5 MG TABS 479909 PHENTERMINE HCL Inactive CRESTOR 10 MG TABS 1 by mouth every day C RESTOR 10 MG TABS ROSUVASTATIN CALCIUM Inactive LIPITOR 20 MG TABS Take one by mouth daily in evening LIPITOR 20 MG TABS 795344 ATORVASTATIN CALCIUM Inactive DEPO-TESTOSTERONE 200 MG/ML OIL as directed 8 DEPO-TESTOSTERONE 200 MG/ML OIL 105278 TESTOSTERONE CYPIONATE Inactive NAPROXEN 500 MG TABS 1 tablet by mouth twice daily 201 07/27/22 NAPROXEN 500 MG TABS 872804 NAPROXEN Inactive GABAPENTIN 300 MG CAPS 1 po qd x 2 days, then 1 po BID x 2 d ays, then 1 po TID GABAPENTIN 300 MG CAPS 432493 GABAPENTIN Inact amie Immunizations Vaccine Administration Date Value Standard Floyd cription pneumococcal immunization administered Pneumovax 23 [CVX33] pneumococcal polysaccharide vaccine, 23 valent Seasonal influenza vaccine, injectable, containing preservative, for > 3 years old (Afluria, FluLaval, Fluzone, Fluvirin, Fluarix, Agriflu(>= 18 yo)) Fluzone (>3 yrs.) [DSP685] Influenza, seasonal, inject able Seasonal influenza vaccine, injectable, containing preservative, for > 3 years old (Afluria, FluLaval, Fluzone, Fluvirin, Fluarix, Agriflu(>= 18 yo)) Fluzone (>3 yrs.) [[id number]] Influenza, seasonal, inject able Vital Signs Date Name Value Unit Range Description blood pressure, diastolic 76 mm[Hg] BP salmeron blood pressure, systolic 134 mm[Hg] BP sys height E&M 66.5 [in_us] Bdy height pulse rate E&M 88 /min Heart rate temperature E&M 98.0 [degF] Body temp erature weight E&M 232 [lb_av] Weight Measure d blood pressure, diastolic 79 mm[Hg] BP salmeron [...] C - Chemistry sodium, serum 140 mmol/L 392-610 7613/02/26 potassium, serum 5.3 mmol/L 3.5-5.2 chloride, serum [...] Panel - Chemistry sodium, serum 136 mmol/L 677-082 3795/01/06 potassium, serum 5.1 mmol/L 3.5-5.2 chloride, serum [...] NOT DETECTED NO T DETECTED Lab Report: MICROALBUMIN, Lipid Panel, H GBA1C, Comp. Metabolic Panel - Chemistry albumin/creatinine ratio, urine 30 - 300 mg/g mg/g{creat} 0-29 cholesterol, serum 319 mg/dL 068-200 4824/08/21 triglyceride, serum, fasting 546 mg/dL 30-200 HDL cholesterol, serum 39 mg/dL 32-96 LDL cholesterol, serum 167.00 mg/dL 5.00-130.00 hemoglobin A1C, blood, as % of total hemoglobin 7.7 % 4.3-6.0 sodium, serum 138 mmol/L 827-484 7516/08/21 potassium, serum 4.3 mmol/L 3.5-5.2 chloride, serum [...] Lab microalbumin, urine 10 0-19 Office Visit: med check - Chemistry cholesterol, [...] mg/dL Encounters Code Encounter Date Provider Facility CPT-44571 Level 4 Est. Patient 12:20:13 CDT Baltazar Childers MD [facility] CPT-50252 Level 4 Est. Patient 14:52:45 ADOBE DEVELOPER Baltazar Childers MD [facility] CPT-47748 Level 4 Est. Patient 14:18:34 ADOBE DEVELOPER Baltazar Childers MD [facility] CPT-91907 Level 4 Est. Patient 15:18:29 CDT Baltazar Childers MD [facility] CPT-63611 Level 3 Est. Patient 12:45:34 CDT Baltazar Childers MD [facility] CPT-33403 Level 3 Est. Patient 10:10:11 CDT Baltazar Childers MD [facility] CPT-00899 Level 3 Est. Patient 14:07:50 CDT Baltazar Childers MD [facility] CPT-43559 Level 4 Est. Patient 12:26:10 ADOBE DEVELOPER Baltazar Childers MD [facility] CPT-52759 Level 4 Est. Patient 14:45:38 CDT Baltazar Childers MD [facility] CPT-06012 Level 4 New Patient 12:30:48 CDT Baltazar hinton MD [facility] Procedures Code Procedure Name Date Entry Date Standard Desc ription CPT-55063 Fluzone Quadrivalent Intramuscular Suspe nsion 0.5 ML 10:49:13 CDT CPT-71379 First Vx Component - Ix admi n via ID IM or jet inj without physician counseling 15:17:19 ADOBE DEVELOPER CPT-28078 Pneumovax 23 15:17:19 ADOBE DEVELOPER CPT-84852 Pneumovax 14:52:45 ADOBE DEVELOPER CPT-54950 Venipuncture Draw Fee 14:06:30 ADOBE DEVELOPER CPT-000 Give Appropriate Flu Vaccine 14:18:34 ADOBE DEVELOPER 2 CPT-37732 Administration single or combination vac cine inc oral 14:46:00 ADOBE DEVELOPER CPT-43091 Influenza split virus > age 3 14:46:00 ADOBE DEVELOPER CPT-OV Office Visit 19:13:16 CDT CPT-88659 Zostavax 18:41:56 CDT CPT-67637 Administration single or combination vac cine inc oral 12:56:39 CDT CPT-19889 Zoster Vaccine (Zostavax) 12:56:39 CDT 2012 CPT-15958 Venipuncture Draw Fee 10:58:57 CDT CPT-38497 Sono pelvis non OB uterus ovaries cervix 17:45:04 CDT CPT-12351 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
--- OUTSIDE RECORDS SUMMARY | 2019-10-27 13:45 | XMS REPORT | Clinical Summary ---
Author Author Admin, Elba Lance [facility] Address Unknown Phone Allergies, Adverse Reactions, Alerts [...] y atherosclerosis of unspecified type of vessel, beaver or graft OTH NONSPC ABN FINDNG RAD&OTH [...] tab every 6-8 hour s PRN HYDROCODONE-ACETAMINOPHEN 32095137644 Active Sergio Crabtree DO Active NORTRIPTYLINE HCL 50 MG CAPS 1 every night for neuropathy 4 NORTRIPTYLINE HCL 39365857712 Active Baltazar Childers MD Acti ve GABAPENTIN 300 MG CAPS 1 three times a day GABAPE NTIN 72253951945 Active Baltazar Childers MD Active GABAPENTIN 300 MG CAPS 1 po qd x 2 days, then 1 po BID x 2 d ays, then 1 po TID GABAPENTIN 65453508470 No Longer Active Baltazar silverman MD Active TRAMADOL HCL 50 MG TABS 1 twice a day as needed for pain TRAMADOL HCL 53115407803 Active Baltazar Childers MD Active NAPROXEN 500 MG TABS 1 tablet by mouth twice daily NAPROXEN 43998317536 No Longer Active Baltazar Childers MD Active PROAIR HFA 108 (90 BASE) MCG/ACT AERS 2 puffs four times a d ay as needed ALBUTEROL SULFATE 66436202867 Active Baltazar Childers MD Active DEPO-TESTOSTERONE 200 MG/ML OIL as directed RUFINO TOSTERONE CYPIONATE 08361518159 No Longer Active Baltazar Childers MD Active LIPITOR 20 MG TABS Take one by mouth daily in evening ATORVASTATIN CALCIUM 81772739278 No Longer Active Baltazar Childers MD Activ e CRESTOR 10 MG TABS 1 by mouth every day R OSUVASTATIN CALCIUM 17645285035 No Longer Active Baltazar Childers MD Activ e PHENTERMINE HCL 37.5 MG TABS Take one by mouth daily 2 PHENTERMINE HCL 24030711873 No Longer Active Baltazar Childers MD Activ e ROBAXIN-750 750 MG TABS Take one by mouth daily ME THOCARBAMOL 51689811991 Active Baltazar Childers MD Active TIZANIDINE HCL 4 MG TABS 1 daily as needed for muscle spasm 2011 TIZANIDINE HCL 56509666266 No Longer Active Dawna Salazar RN Active ONETOUCH ULTRA BLUE STRP Test twice a day GLUCO SE BLOOD 75022518354 Active Baltazar Childers MD Active [id number]-[id number]-[id number] 50-325-40 MG TABS 1 four time s a day as needed for heacache [id number] 53198026324 Active Baltazar Childers MD Active SUMATRIPTAN SUCCINATE 100 MG TABS 1 tablet by mouth at onset of migraine as needed SUMATRIPTAN SUCCINATE 91386437215 Active Shireen Miller APRN Active LORATADINE 10 MG TABS Take one by mouth daily LORATADINE 32014592174 Active Brad Hughes Active FUROSEMIDE 40 MG TABS Take one by mouth daily FUROSEMIDE 00668102452 Active Shireen Miller APRN Active LISINOPRIL 20 MG TABS Take one by mouth daily at bedtime LISINOPRIL 86578116304 Active Shireen Miller APRN Active OMEPRAZOLE 20 MG CPDR Take one by mouth daily OMEPRAZOLE 95886781066 Active Shireen Miller APRN Active HYDROXYZINE HCL 25 MG TABS Take one by mouth daily HYDROXYZINE HCL 60787266114 Active Shireen Miller APRN Active GLIPIZIDE 10 MG TABS 1 tablet by mouth twice daily GLIPIZIDE 41582203798 Active Shireen Miller APRN Active ALPRAZOLAM 1 MG TABS 1 tablet by mouth daily at bedtime for restles s leg ALPRAZOLAM 70770378992 Active Baltazar Childers MD Active METFORMIN HCL 1000 MG TABS Take one by mouth twice daily METFORMIN HCL 45196458813 Active Shireen Miller APRN Active TIZANIDINE HCL 4 MG TABS 1 daily as needed for muscle spasm 2011 TIZANIDINE HCL 4 MG TABS 161781 TIZANIDINE HCL Inactiv e PHENTERMINE HCL 37.5 MG TABS Take one by mouth daily 2 PHENTERMINE HCL 37.5 MG TABS 059491 PHENTERMINE HCL Inactive CRESTOR 10 MG TABS 1 by mouth every day C RESTOR 10 MG TABS ROSUVASTATIN CALCIUM Inactive LIPITOR 20 MG TABS Take one by mouth daily in evening LIPITOR 20 MG TABS 931962 ATORVASTATIN CALCIUM Inactive DEPO-TESTOSTERONE 200 MG/ML OIL as directed 8 DEPO-TESTOSTERONE 200 MG/ML OIL 748587 TESTOSTERONE CYPIONATE Inactive NAPROXEN 500 MG TABS 1 tablet by mouth twice daily 201 07/27/22 NAPROXEN 500 MG TABS 687288 NAPROXEN Inactive GABAPENTIN 300 MG CAPS 1 po qd x 2 days, then 1 po BID x 2 d ays, then 1 po TID GABAPENTIN 300 MG CAPS 527918 GABAPENTIN Inact amie Immunizations Vaccine Administration Date Value Standard Floyd cription pneumococcal immunization administered Pneumovax 23 [CVX33] pneumococcal polysaccharide vaccine, 23 valent Seasonal influenza vaccine, injectable, containing preservative, for > 3 years old (Afluria, FluLaval, Fluzone, Fluvirin, Fluarix, Agriflu(>= 18 yo)) Fluzone (>3 yrs.) [[id number]] Influenza, seasonal, inject able Seasonal influenza vaccine, injectable, containing preservative, for > 3 years old (Afluria, FluLaval, Fluzone, Fluvirin, Fluarix, Agriflu(>= 18 yo)) Fluzone (>3 yrs.) [[id number]] Influenza, seasonal, inject able Vital Signs Date [...] C - Chemistry sodium, serum 140 mmol/L 291-445 8094/02/26 potassium, serum 5.3 mmol/L 3.5-5.2 chloride, serum [...] 0.39 mg/dL 0.00-1.00 cholesterol, serum 345 mg/dL 715-679 3193/08/26 triglyceride, serum, fasting 635 mg/dL 30-200 HDL [...] Panel - Chemistry sodium, serum 136 mmol/L 862-104 3761/01/06 potassium, serum 5.1 mmol/L 3.5-5.2 chloride, serum [...] Panel - Chemistry sodium, serum 138 mmol/L 275-089 8878/06/17 potassium, serum 4.9 mmol/L 3.5-5.2 chloride, serum 100 mmol/L 98-107 carbon dioxide, venous blood 28.1 mmol/L 21.0-32 .0 blood glucose 108 mg/dL 65-110 urea nitrogen, blood 20 mg/dL 7-18 creatinine, serum 1.60 mg/dL 0.60-1.30 calcium, serum 9.5 mg/dL 8.5-10.1 sodium, serum 139 mmol/L 133-617 9529/08/26 potassium, serum 5.8 mmol/L 3.5-5.2 chloride, serum [...] mg/dL Encounters Code Encounter Date Provider Facility CPT-63175 Level 4 Est. Patient 14:52:45 BLOCKER HAND Baltazar Childers MD [facility] CPT-37756 Level 4 Est. Patient 14:18:34 BLOCKER HAND Baltazar Childers MD [facility] CPT-41000 Level 4 Est. Patient 15:18:29 CDT Baltazar Childers MD [facility] CPT-81891 Level 3 Est. Patient 12:45:34 CDT Baltazar Childers MD [facility] CPT-31306 Level 3 Est. Patient 10:10:11 CDT Baltazar Childers MD [facility] CPT-15265 Level 3 Est. Patient 14:07:50 CDT Baltazar Childers MD [facility] CPT-68020 Level 4 Est. Patient 12:26:10 BLOCKER HAND Baltazar Childers MD [facility] CPT-79879 Level 4 Est. Patient 14:45:38 CDT Baltazar Childers MD [facility] CPT-03026 Level 4 New Patient 12:30:48 CDT Baltazar hinton MD [facility] Procedures Code Procedure Name Date Entry Date Standard Desc ription CPT-61897 First Vx Component - Ix admi n via ID IM or jet inj without physician counseling 15:17:19 BLOCKER HAND CPT-17578 Pneumovax 15:17:19 BLOCKER HAND CPT-59983 Pneumovax 14:52:45 BLOCKER HAND CPT-57073 Venipuncture Draw Fee 14:06:30 BLOCKER HAND CPT-000 Give Appropriate Flu Vaccine 14:18:34 BLOCKER HAND 2 CPT-61529 Administration single or combination vac cine inc oral 14:46:00 BLOCKER HAND CPT-65875 Influenza split virus > age 3 14:46:00 BLOCKER HAND CPT-OV Office Visit 19:13:16 CDT CPT-59099 Zostavax 18:41:56 CDT CPT-73380 Administration single or combination vac cine inc oral 12:56:39 CDT CPT-02292 Zoster Vaccine (Zostavax) 12:56:39 CDT 2012 CPT-68284 Venipuncture Draw Fee 10:58:57 CDT CPT-93122 Sono pelvis non OB uterus ovaries cervix 17:45:04 CDT CPT-74761 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
--- OUTSIDE RECORDS SUMMARY | 2019-10-27 13:45 | XMS REPORT | Clinical Summary ---
Author Author Admin, Elba Lance [facility] Address Unknown Phone Unavailable Allergies, Adverse Reactions, 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 Thomas [employer] [employer]IC[facility] Benign neoplasm of colon PERIPHERAL NEUROPATHY 356.9 Active Baltazar Nickreson MD Unspecified idiopathic peripheral neuropathy PERSONAL HISTORY [...] y atherosclerosis of unspecified type of vessel, quinault or graft OTH NONSPC ABN FINDNG RAD&OTH [...] tab every 6-8 hour s PRN HYDROCODONE-ACETAMINOPHEN 68969565993 Active Baltazar Childers MD Active NORTRIPTYLINE HCL 50 MG CAPS 1 every night for neuropathy 4 NORTRIPTYLINE HCL 09929439510 Active Baltazar Childers MD Acti ve GABAPENTIN 300 MG CAPS 1 three times a day GABAPE NTIN 94043885046 Active Baltazar Childers MD Active GABAPENTIN 300 MG CAPS 1 po qd x 2 days, then 1 po BID x 2 d ays, then 1 po TID GABAPENTIN 76524782879 No Longer Active Baltazar silverman MD Active TRAMADOL HCL 50 MG TABS 1 twice a day as needed for pain TRAMADOL HCL 09743766738 Active Baltazar Childers MD Active NAPROXEN 500 MG TABS 1 tablet by mouth twice daily NAPROXEN 99516581179 No Longer Active Baltazar Childers MD Active PROAIR HFA 108 (90 BASE) MCG/ACT AERS 2 puffs four times a d ay as needed ALBUTEROL SULFATE 82142624661 Active Baltazar Childers MD Active DEPO-TESTOSTERONE 200 MG/ML OIL as directed RUFINO TOSTERONE CYPIONATE 21665529112 No Longer Active Baltazar Childers MD Active LIPITOR 20 MG TABS Take one by mouth daily in evening ATORVASTATIN CALCIUM 75389962633 No Longer Active Baltazar Childers MD Activ e CRESTOR 10 MG TABS 1 by mouth every day R OSUVASTATIN CALCIUM 09283185729 No Longer Active Baltazar Childers MD Activ e PHENTERMINE HCL 37.5 MG TABS Take one by mouth daily 2 PHENTERMINE HCL 53902117891 No Longer Active Baltazar Childers MD Activ e ROBAXIN-750 750 MG TABS Take one by mouth daily ME THOCARBAMOL 94199411821 Active Baltazar Childers MD Active TIZANIDINE HCL 4 MG TABS 1 daily as needed for muscle spasm 2011 TIZANIDINE HCL 49912604945 No Longer Active Dawna Salazar RN Active ONETOUCH ULTRA BLUE STRP Test twice a day GLUCO SE BLOOD 47417714952 Active Baltazar Childers MD Active [id number]-[id number]-IZOXWWYL 50-325-40 MG TABS 1 four time s a day as needed for heacache [id number]-[id number] 44980467032 Active Baltazar Childers MD Active SUMATRIPTAN SUCCINATE 100 MG TABS 1 tablet by mouth at onset of migraine as needed SUMATRIPTAN SUCCINATE 37962180896 Active Baltazar bynum MD Active LORATADINE 10 MG TABS Take one by mouth daily LORATADINE 95787765356 Active Baltazar Childers MD Active FUROSEMIDE 40 MG TABS Take one by mouth daily FUROSEMIDE 62710878621 Active Baltazar Childers MD Active LISINOPRIL 20 MG TABS Take one by mouth daily at bedtime LISINOPRIL 82642253453 Active Baltazar Childers MD Active OMEPRAZOLE 20 MG CPDR Take one by mouth daily OMEPRAZOLE 49440027886 Active Baltazar Childers MD Active HYDROXYZINE HCL 25 MG TABS Take one by mouth daily HYDROXYZINE HCL 76894519219 Active Baltazar Childers MD Active GLIPIZIDE 10 MG TABS 1 tablet by mouth twice daily GLIPIZIDE 61619952527 Active Baltazar Childers MD Active ALPRAZOLAM 1 MG TABS 1 tablet by mouth daily at bedtime for restles s leg ALPRAZOLAM 59148469847 Active Baltazar Childers MD Active METFORMIN HCL 1000 MG TABS Take one by mouth twice daily METFORMIN HCL 54047422553 Active Baltazar Childers MD Active TIZANIDINE HCL 4 MG TABS 1 daily as needed for muscle spasm 2011 TIZANIDINE HCL 4 MG TABS 546879 TIZANIDINE HCL Inactiv e PHENTERMINE HCL 37.5 MG TABS Take one by mouth daily 2 PHENTERMINE HCL 37.5 MG TABS 853540 PHENTERMINE HCL Inactive CRESTOR 10 MG TABS 1 by mouth every day C RESTOR 10 MG TABS ROSUVASTATIN CALCIUM Inactive LIPITOR 20 MG TABS Take one by mouth daily in evening LIPITOR 20 MG TABS 446997 ATORVASTATIN CALCIUM Inactive DEPO-TESTOSTERONE 200 MG/ML OIL as directed 8 DEPO-TESTOSTERONE 200 MG/ML OIL 466147 TESTOSTERONE CYPIONATE Inactive NAPROXEN 500 MG TABS 1 tablet by mouth twice daily 201 07/27/22 NAPROXEN 500 MG TABS 934916 NAPROXEN Inactive GABAPENTIN 300 MG CAPS 1 po qd x 2 days, then 1 po BID x 2 d ays, then 1 po TID GABAPENTIN 300 MG CAPS 123006 GABAPENTIN Inact amie Immunizations Vaccine Administration Date Value Standard Floyd cription pneumococcal immunization administered Pneumovax 23 [CVX33] pneumococcal polysaccharide vaccine, 23 valent Seasonal influenza vaccine, injectable, containing preservative, for > 3 years old (Afluria, FluLaval, Fluzone, Fluvirin, Fluarix, Agriflu(>= 18 yo)) Fluzone (>3 yrs.) [[id number]] Influenza, seasonal, inject able Seasonal influenza vaccine, injectable, containing preservative, for > 3 years old (Afluria, FluLaval, Fluzone, Fluvirin, Fluarix, Agriflu(>= 18 yo)) Fluzone (>3 yrs.) [[id number]] Influenza, seasonal, inject able Vital Signs Date [...] C - Chemistry sodium, serum 140 mmol/L 278-049 8964/02/26 potassium, serum 5.3 mmol/L 3.5-5.2 chloride, serum [...] 0.39 mg/dL 0.00-1.00 cholesterol, serum 345 mg/dL 118-094 0048/08/26 triglyceride, serum, fasting 635 mg/dL 30-200 HDL [...] Panel - Chemistry sodium, serum 136 mmol/L 564-175 0369/01/06 potassium, serum 5.1 mmol/L 3.5-5.2 chloride, serum [...] Panel - Chemistry sodium, serum 139 mmol/L 543-702 2165/08/26 potassium, serum 5.8 mmol/L 3.5-5.2 chloride, serum [...] mg/dL Encounters Code Encounter Date Provider Facility CPT-26838 Level 4 Est. Patient 12:20:13 CDT Baltazar Childers MD [facility] CPT-74234 Level 4 Est. Patient 14:52:45 SOFTWARE WRITER Baltazar Childers MD [facility] CPT-24210 Level 4 Est. Patient 14:18:34 SOFTWARE WRITER Baltazar Childers MD [facility] CPT-57026 Level 4 Est. Patient 15:18:29 CDT Baltazar Childers MD [facility] CPT-65712 Level 3 Est. Patient 12:45:34 CDT Baltazar Childers MD [facility] CPT-45150 Level 3 Est. Patient 10:10:11 CDT Baltazar Childers MD [facility] CPT-26974 Level 3 Est. Patient 14:07:50 CDT Baltazar Childers MD [facility] CPT-41974 Level 4 Est. Patient 12:26:10 SOFTWARE WRITER Baltazar Childers MD [facility] CPT-67803 Level 4 Est. Patient 14:45:38 CDT Baltazar Childers MD [facility] CPT-25169 Level 4 New Patient 12:30:48 CDT Baltazar hinton MD [facility] Procedures Code Procedure Name Date Entry Date Standard Desc ription CPT-43116 First Vx Component - Ix admi n via ID IM or jet inj without physician counseling 15:17:19 SOFTWARE WRITER CPT-14702 Pneumovax 15:17:19 SOFTWARE WRITER CPT-96882 Pneumovax 14:52:45 SOFTWARE WRITER CPT-73960 Venipuncture Draw Fee 14:06:30 SOFTWARE WRITER CPT-000 Give Appropriate Flu Vaccine 14:18:34 SOFTWARE WRITER 2 CPT-00629 Administration single or combination vac cine inc oral 14:46:00 SOFTWARE WRITER CPT-35412 Influenza split virus > age 3 14:46:00 SOFTWARE WRITER CPT-OV Office Visit 19:13:16 CDT CPT-81738 Zostavax 18:41:56 CDT CPT-07277 Administration single or combination vac cine inc oral 12:56:39 CDT CPT-28092 Zoster Vaccine (Zostavax) 12:56:39 CDT 2012 CPT-45395 Venipuncture Draw Fee 10:58:57 CDT CPT-46859 Sono pelvis non OB uterus ovaries cervix 17:45:04 CDT CPT-20943 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
--- OUTSIDE RECORDS SUMMARY | 2019-10-27 13:45 | XMS REPORT | Clinical Summary ---
Author Author Admin, Elba Lance [facility] Address [...] libido COLON POLYPS 211.3 Resolved Lolis Thomas [employer] Benign neoplasm of colon PERIPHERAL NEUROPATHY 356.9 [...] tab every 6-8 hour s PRN HYDROCODONE-ACETAMINOPHEN 77658422189 Active Baltazar Childers MD Active NORTRIPTYLINE HCL 50 MG CAPS 1 every night for neuropathy 4 NORTRIPTYLINE HCL 85761442909 Active Baltazar Childers MD Acti ve GABAPENTIN 300 MG CAPS 1 three times a day GABAPE NTIN 56547391245 Active Baltazar Childers MD Active GABAPENTIN 300 MG CAPS 1 po qd x 2 days, then 1 po BID x 2 d ays, then 1 po TID GABAPENTIN 59095909339 No Longer Active Baltazar silverman MD Active TRAMADOL HCL 50 MG TABS 1 twice a day as needed for pain TRAMADOL HCL 36482862146 Active Baltazar Childers MD Active NAPROXEN 500 MG TABS 1 tablet by mouth twice daily NAPROXEN 05795079262 No Longer Active Baltazar Childers MD Active PROAIR HFA 108 (90 BASE) MCG/ACT AERS 2 puffs four times a d ay as needed ALBUTEROL SULFATE 67654882837 Active Baltazar Childers MD Active DEPO-TESTOSTERONE 200 MG/ML OIL as directed RUFINO TOSTERONE CYPIONATE 36936820491 No Longer Active Baltazar Childers MD Active LIPITOR 20 MG TABS Take one by mouth daily in evening ATORVASTATIN CALCIUM 48874432855 No Longer Active Baltazar Childers MD Activ e CRESTOR 10 MG TABS 1 by mouth every day R OSUVASTATIN CALCIUM 96175935447 No Longer Active Baltazar Childers MD Activ e PHENTERMINE HCL 37.5 MG TABS Take one by mouth daily 2 PHENTERMINE HCL 33607870714 No Longer Active Baltazar Childers MD Activ e ROBAXIN-750 750 MG TABS Take one by mouth daily ME THOCARBAMOL 75032099143 Active Baltazar Childers MD Active TIZANIDINE HCL 4 MG TABS 1 daily as needed for muscle spasm 2011 TIZANIDINE HCL 49512268210 No Longer Active Dawna Salazar RN Active ONETOUCH ULTRA BLUE STRP Test twice a day GLUCO SE BLOOD 57895349793 Active Baltazar Childers MD Active [id number]-WWGY-DAHPZHOE 50-325-40 MG TABS 1 four time s a day as needed for heacache UFATSVFDMQ-QNDQ-[id number] 87088413407 Active Baltazar Childers MD Active SUMATRIPTAN SUCCINATE 100 MG TABS 1 tablet by mouth at onset of migraine as needed SUMATRIPTAN SUCCINATE 71104098250 Active Baltazar bynum MD Active LORATADINE 10 MG TABS Take one by mouth daily LORATADINE 24257288299 Active Baltazar Childers MD Active FUROSEMIDE 40 MG TABS Take one by mouth daily FUROSEMIDE 62446995043 Active Baltazar Childers MD Active LISINOPRIL 20 MG TABS Take one by mouth daily at bedtime LISINOPRIL 68892378645 Active Baltazar Childers MD Active OMEPRAZOLE 20 MG CPDR Take one by mouth daily OMEPRAZOLE 16651546711 Active Baltazar Childers MD Active HYDROXYZINE HCL 25 MG TABS Take one by mouth daily HYDROXYZINE HCL 14477581282 Active Baltazar Childers MD Active GLIPIZIDE 10 MG TABS 1 tablet by mouth twice daily GLIPIZIDE 53539042317 Active Baltazar Childers MD Active ALPRAZOLAM 1 MG TABS 1 tablet by mouth daily at bedtime for restles s leg ALPRAZOLAM 88869751422 Active Baltazar Childers MD Active METFORMIN HCL 1000 MG TABS Take one by mouth twice daily METFORMIN HCL 02784644670 Active Baltazar Childers MD Active TIZANIDINE HCL 4 MG TABS 1 daily as needed for muscle spasm 2011 TIZANIDINE HCL 4 MG TABS 284014 TIZANIDINE HCL Inactiv e PHENTERMINE HCL 37.5 MG TABS Take one by mouth daily 2 PHENTERMINE HCL 37.5 MG TABS 130531 PHENTERMINE HCL Inactive CRESTOR 10 MG TABS 1 by mouth every day C RESTOR 10 MG TABS ROSUVASTATIN CALCIUM Inactive LIPITOR 20 MG TABS Take one by mouth daily in evening LIPITOR 20 MG TABS 500396 ATORVASTATIN CALCIUM Inactive DEPO-TESTOSTERONE 200 MG/ML OIL as directed 8 DEPO-TESTOSTERONE 200 MG/ML OIL 021974 TESTOSTERONE CYPIONATE Inactive NAPROXEN 500 MG TABS 1 tablet by mouth twice daily 201 07/27/22 NAPROXEN 500 MG TABS 724865 NAPROXEN Inactive GABAPENTIN 300 MG CAPS 1 po qd x 2 days, then 1 po BID x 2 d ays, then 1 po TID GABAPENTIN 300 MG CAPS 511927 GABAPENTIN Inact amie Immunizations Vaccine Administration Date Value Standard Floyd cription pneumococcal immunization administered Pneumovax 23 [CVX33] pneumococcal polysaccharide vaccine, 23 valent Seasonal influenza vaccine, injectable, containing preservative, for > 3 years old (Afluria, FluLaval, Fluzone, Fluvirin, Fluarix, Agriflu(>= 18 yo)) Fluzone (>3 yrs.) [[id number]] Influenza, seasonal, inject able Seasonal influenza vaccine, injectable, containing preservative, for > 3 years old (Afluria, FluLaval, Fluzone, Fluvirin, Fluarix, Agriflu(>= 18 yo)) Fluzone (>3 yrs.) [[id number]] Influenza, seasonal, inject able Vital Signs Date [...] C - Chemistry sodium, serum 140 mmol/L 768-136 2123/02/26 potassium, serum 5.3 mmol/L 3.5-5.2 chloride, serum [...] 0.39 mg/dL 0.00-1.00 cholesterol, serum 345 mg/dL 234-402 8897/08/26 triglyceride, serum, fasting 635 mg/dL 30-200 HDL cholesterol, serum 46 mg/dL 32-96 LDL cholesterol, serum 161.00 mg/dL 5.00-130.00 hemoglobin A1C, blood, as % of total hemoglobin 7.6 % 4.3-6.0 albumin/creatinine ratio, urine < 30 mg/g mg/g{creat} 0-2 9 Lab Report: CBC, Comp. Metabolic Panel, Lipid Panel, HGBA1C, MICROALBUMI ... - Hematology mean corpuscular volume, RBC 96 fL 80-97 mean corpuscular hemoglobin, RBC 30.6 pg 27. 0-31.2 mean corpuscular hemoglobin concentration, RBC 31.8 G/DL % 31.8-35.4 red blood cell distribution width 14.5 % 11 .6-14.8 platelet count 301 10^3/MM^3 10*3/mm3 895-086 9048/08/26 hematocrit, blood 35.5 % 36.0-46.0 hemoglobin, blood 11.3 g/dL 12.0-16.0 erythrocyte (RBC) count 3.69 10^6/MM^3 10*6/mm3 4.04-5.4 8 leukocyte count, blood 6.0 10^3/MM^3 10*3/mm3 4.6-10.2 Lab Report: CBC, Comp. Metabolic Panel, Lipid Panel, HGBA1C, MICROALBUMI ... - Lab microalbumin, urine 10 0-19 Lab Report: CBC, Renal Panel - Chemistry sodium, serum 136 mmol/L 593-964 6263/01/06 potassium, serum 5.1 mmol/L 3.5-5.2 chloride, serum [...] Panel - Chemistry sodium, serum 139 mmol/L 960-027 9197/08/26 potassium, serum 5.8 mmol/L 3.5-5.2 chloride, serum [...] Neg ative urine color Straw Colorless;Lightyellow;St raw;Yellow appearance, urine [...] mg/dL Encounters Code Encounter Date Provider Facility CPT-95387 Level 4 Est. Patient 12:20:13 CDT Baltazar Childers MD [facility] CPT-15531 Level 4 Est. Patient 14:52:45 TOP CASE ASSEMBLER Baltazar Childers MD [facility] CPT-28626 Level 4 Est. Patient 14:18:34 TOP CASE ASSEMBLER Baltazar Childers MD [facility] CPT-78493 Level 4 Est. Patient 15:18:29 CDT Baltazar Childers MD [facility] CPT-80220 Level 3 Est. Patient 12:45:34 CDT Baltazar Childers MD [facility] CPT-31949 Level 3 Est. Patient 10:10:11 CDT Baltazar Childers MD [facility] CPT-62164 Level 3 Est. Patient 14:07:50 CDT Baltazar Childers MD [facility] CPT-11094 Level 4 Est. Patient 12:26:10 TOP CASE ASSEMBLER Baltazar Childers MD [facility] CPT-73764 Level 4 Est. Patient 14:45:38 CDT Baltazar Childers MD [facility] CPT-81302 Level 4 New Patient 12:30:48 CDT Baltazar hinton MD [facility] Procedures Code Procedure Name Date Entry Date Standard Desc ription CPT-05967 First Vx Component - Ix admi n via ID IM or jet inj without physician counseling 15:17:19 TOP CASE ASSEMBLER CPT-58453 Pneumovax 15:17:19 TOP CASE ASSEMBLER CPT-25900 Pneumovax 14:52:45 TOP CASE ASSEMBLER CPT-15173 Venipuncture Draw Fee 14:06:30 TOP CASE ASSEMBLER CPT-000 Give Appropriate Flu Vaccine 14:18:34 TOP CASE ASSEMBLER 2 CPT-33770 Administration single or combination vac cine inc oral 14:46:00 TOP CASE ASSEMBLER CPT-56287 Influenza split virus > age 3 14:46:00 TOP CASE ASSEMBLER CPT-OV Office Visit 19:13:16 CDT CPT-89787 Zostavax 18:41:56 CDT CPT-32297 Administration single or combination vac cine inc oral 12:56:39 CDT CPT-28320 Zoster Vaccine (Zostavax) 12:56:39 CDT 2012 CPT-89396 Venipuncture Draw Fee 10:58:57 CDT CPT-54899 Sono pelvis non OB uterus ovaries cervix 17:45:04 CDT CPT-75582 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
--- OUTSIDE RECORDS SUMMARY | 2019-10-27 13:45 | XMS REPORT | Clinical Summary ---
Author Author Admin, Elba Lance [facility] Address Unknown Phone Unavailable Allergies, Adverse [...] libido COLON POLYPS 211.3 Resolved Lolis Thomas [employer]OF[employer] Benign neoplasm of colon PERIPHERAL NEUROPATHY 356.9 [...] y atherosclerosis of unspecified type of vessel, white [...] tab every 6-8 hour s PRN HYDROCODONE-ACETAMINOPHEN 64344540322 Active Baltazar Childers MD Active NORTRIPTYLINE HCL 50 MG CAPS 1 every night for neuropathy 4 NORTRIPTYLINE HCL 19923857729 Active Amaris Jason MD PhD Act amie GABAPENTIN 300 MG CAPS 1 three times a day GABAPE NTIN 52409231067 Active Baltazar Childers MD Active GABAPENTIN 300 MG CAPS 1 po qd x 2 days, then 1 po BID x 2 d ays, then 1 po TID GABAPENTIN 43431149974 No Longer Active Baltazar silverman MD Active TRAMADOL HCL 50 MG TABS 1 twice a day as needed for pain TRAMADOL HCL 47768784994 Active Baltazar Childers MD Active NAPROXEN 500 MG TABS 1 tablet by mouth twice daily NAPROXEN 75899909987 No Longer Active Baltazar Childers MD Active PROAIR HFA 108 (90 BASE) MCG/ACT AERS 2 puffs four times a d ay as needed ALBUTEROL SULFATE 31487241562 Active Baltazar Childers MD Active DEPO-TESTOSTERONE 200 MG/ML OIL as directed RUFINO TOSTERONE CYPIONATE 49279404989 No Longer Active Baltazar Childers MD Active LIPITOR 20 MG TABS Take one by mouth daily in evening ATORVASTATIN CALCIUM 20482713256 No Longer Active Baltazar Childers MD Activ e CRESTOR 10 MG TABS 1 by mouth every day R OSUVASTATIN CALCIUM 00059763027 No Longer Active Baltazar Childers MD Activ e PHENTERMINE HCL 37.5 MG TABS Take one by mouth daily 2 PHENTERMINE HCL 42165593492 No Longer Active Baltazar Childers MD Activ e ROBAXIN-750 750 MG TABS Take one by mouth daily ME THOCARBAMOL 40700213650 Active Baltazar Childers MD Active TIZANIDINE HCL 4 MG TABS 1 daily as needed for muscle spasm 2011 TIZANIDINE HCL 46736471933 No Longer Active Dawna Salazar RN Active ONETOUCH ULTRA BLUE STRP Test twice a day GLUCO SE BLOOD 98139739278 Active Baltazar Childers MD Active [id number] 50-325-40 MG TABS 1 four time s a day as needed for heacache [id number] 72152145174 Active Baltazar Childers MD Active SUMATRIPTAN SUCCINATE 100 MG TABS 1 tablet by mouth at onset of migraine as needed SUMATRIPTAN SUCCINATE 97257275705 Active Baltazar bynum MD Active LORATADINE 10 MG TABS Take one by mouth daily LORATADINE 97213411030 Active Baltazar Childers MD Active FUROSEMIDE 40 MG TABS Take one by mouth daily FUROSEMIDE 79809370078 Active Baltazar Childers MD Active LISINOPRIL 20 MG TABS Take one by mouth daily at bedtime LISINOPRIL 03139864293 Active Baltazar Childers MD Active OMEPRAZOLE 20 MG CPDR Take one by mouth daily OMEPRAZOLE 27029102760 Active Baltazar Childers MD Active HYDROXYZINE HCL 25 MG TABS Take one by mouth daily HYDROXYZINE HCL 16501359056 Active Baltazar Childers MD Active GLIPIZIDE 10 MG TABS 1 tablet by mouth twice daily GLIPIZIDE 56848804121 Active Baltazar Childers MD Active ALPRAZOLAM 1 MG TABS 1 tablet by mouth daily at bedtime for restles s leg ALPRAZOLAM 37844951364 Active Baltazar Childers MD Active METFORMIN HCL 1000 MG TABS Take one by mouth twice daily METFORMIN HCL 24944963443 Active Baltazar Childers MD Active TIZANIDINE HCL 4 MG TABS 1 daily as needed for muscle spasm 2011 TIZANIDINE HCL 4 MG TABS 686083 TIZANIDINE HCL Inactiv e PHENTERMINE HCL 37.5 MG TABS Take one by mouth daily 2 PHENTERMINE HCL 37.5 MG TABS 069043 PHENTERMINE HCL Inactive CRESTOR 10 MG TABS 1 by mouth every day C RESTOR 10 MG TABS ROSUVASTATIN CALCIUM Inactive LIPITOR 20 MG TABS Take one by mouth daily in evening LIPITOR 20 MG TABS 163557 ATORVASTATIN CALCIUM Inactive DEPO-TESTOSTERONE 200 MG/ML OIL as directed 8 DEPO-TESTOSTERONE 200 MG/ML OIL 203135 TESTOSTERONE CYPIONATE Inactive NAPROXEN 500 MG TABS 1 tablet by mouth twice daily 201 07/27/22 NAPROXEN 500 MG TABS 108610 NAPROXEN Inactive GABAPENTIN 300 MG CAPS 1 po qd x 2 days, then 1 po BID x 2 d ays, then 1 po TID GABAPENTIN 300 MG CAPS 669862 GABAPENTIN Inact amie Immunizations Vaccine Administration Date Value Standard Floyd cription pneumococcal immunization administered Pneumovax 23 [CVX33] pneumococcal polysaccharide vaccine, 23 valent Seasonal influenza vaccine, injectable, containing preservative, for > 3 years old (Afluria, FluLaval, Fluzone, Fluvirin, Fluarix, Agriflu(>= 18 yo)) Fluzone (>3 yrs.) [[id number]] Influenza, seasonal, inject able Seasonal influenza vaccine, injectable, containing preservative, for > 3 years old (Afluria, FluLaval, Fluzone, Fluvirin, Fluarix, Agriflu(>= 18 yo)) Fluzone (>3 yrs.) [[id number]] Influenza, seasonal, inject able Vital Signs Date [...] C - Chemistry sodium, serum 140 mmol/L 027-789 9357/02/26 potassium, serum 5.3 mmol/L 3.5-5.2 chloride, serum [...] Panel - Chemistry sodium, serum 136 mmol/L 029-087 7694/01/06 potassium, serum 5.1 mmol/L 3.5-5.2 chloride, serum [...] mg/g mg/g{creat} 0-29 cholesterol, serum 319 mg/dL 303-414 6923/08/21 triglyceride, serum, fasting 546 mg/dL 30-200 HDL cholesterol, serum 39 mg/dL 32-96 LDL cholesterol, serum 167.00 mg/dL 5.00-130.00 hemoglobin A1C, blood, as % of total hemoglobin 7.7 % 4.3-6.0 sodium, serum 138 mmol/L 055-232 5700/08/21 potassium, serum 4.3 mmol/L 3.5-5.2 chloride, serum [...] mg/dL Encounters Code Encounter Date Provider Facility CPT-73582 Level 4 Est. Patient 12:20:13 CDT Baltazar Childers MD [facility] CPT-29281 Level 4 Est. Patient 14:52:45 HIM ASSISTANT Baltazar Childers MD [facility] CPT-23137 Level 4 Est. Patient 14:18:34 HIM ASSISTANT Baltazar Childers MD [facility] CPT-99945 Level 4 Est. Patient 15:18:29 CDT Baltazar Childers MD [facility] CPT-97992 Level 3 Est. Patient 12:45:34 CDT Baltazar Childers MD [facility] CPT-77664 Level 3 Est. Patient 10:10:11 CDT Baltazar Childers MD [facility] CPT-62678 Level 3 Est. Patient 14:07:50 CDT Baltazar Childers MD [facility] CPT-88408 Level 4 Est. Patient 12:26:10 HIM ASSISTANT Baltazar Childers MD [facility] CPT-33799 Level 4 Est. Patient 14:45:38 CDT Baltazar Childers MD [facility] CPT-47365 Level 4 New Patient 12:30:48 CDT Baltazar hinton MD [facility] Procedures Code Procedure Name Date Entry Date Standard Desc ription CPT-82521 First Vx Component - Ix admi n via ID IM or jet inj without physician counseling 15:17:19 HIM ASSISTANT CPT-43437 Pneumovax 23 15:17:19 HIM ASSISTANT CPT-74282 Pneumovax 14:52:45 HIM ASSISTANT CPT-73490 Venipuncture Draw Fee 14:06:30 HIM ASSISTANT CPT-000 Give Appropriate Flu Vaccine 14:18:34 HIM ASSISTANT 2 CPT-71195 Administration single or combination vac cine inc oral 14:46:00 HIM ASSISTANT CPT-27287 Influenza split virus > age 3 14:46:00 HIM ASSISTANT CPT-OV Office Visit 19:13:16 CDT CPT-47757 Zostavax 18:41:56 CDT CPT-24209 Administration single or combination vac cine inc oral 12:56:39 CDT CPT-32206 Zoster Vaccine (Zostavax) 12:56:39 CDT 2012 CPT-40052 Venipuncture Draw Fee 10:58:57 CDT CPT-98493 Sono pelvis non OB uterus ovaries cervix 17:45:04 CDT CPT-22885 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
--- OUTSIDE RECORDS SUMMARY | 2019-10-27 13:46 | XMS REPORT | Clinical Summary ---
Author Author Admin, Elba Lance [facility] Address Unknown Phone Unavailable Allergies, Adverse Reactions, Alerts Allergy Name Reaction Description Start Date Severity Status Pr ovider ASPIRIN Critical Active Baltazar barron MD PENICILLIN yeast infection Critical Active Baltazar Childers MD FISH Critical Active Baltazar barron MD CODEINE Critical Active Baltaazr barron MD Conditions or Problems Problem Name [...] libido COLON POLYPS 211.3 Resolved Lolis Thomas [employer] REPA[employer] CARMAN Benign neoplasm of colon PERIPHERAL NEUROPATHY 356.9 [...] y atherosclerosis of unspecified type of vessel, [place] or graft OTH NONSPC ABN FINDNG [...] MISC Test twice a day LANCET S 69404391075 Active Baltazar Childers MD Active TRUEDRAW LANCING DEVICE MISC Test twice a day L ANCET DEVICES 88062994932 Active Baltazar Childers MD Active TRUETRACK TEST STRP Test twice a day GLUCOSE BLOO D 20880252037 Active Baltazar Childers MD Active TRUETRACK BLOOD GLUCOSE W/DEVICE KIT Test twice a day BLOOD GLUCOSE MONITORING SUPPL 06636346617 Active Bella Yokum RAIL [employer] REPAIR CARMAN Active HYDROCODONE-ACETAMINOPHEN 7.5-325 MG TABS Take 1 tab every 6-8 hour s PRN HYDROCODONE-ACETAMINOPHEN 39814065031 Active Bella Yogeovanyum RAIL CAR REPAIR CARMAN Active NORTRIPTYLINE HCL 50 MG CAPS 1 every night for neuropathy 4 NORTRIPTYLINE HCL 99431679767 Active Baltazar Childers MD Acti ve GABAPENTIN 300 MG CAPS 1 three times a day GABAPE NTIN 46441614884 Active Baltazar Childers MD Active GABAPENTIN 300 MG CAPS 1 po qd x 2 days, then 1 po BID x 2 d ays, then 1 po TID GABAPENTIN 28027523420 No Longer Active Baltazar silverman MD Active TRAMADOL HCL 50 MG TABS 1 twice a day as needed for pain TRAMADOL HCL 62089325627 Active Baltazar Childers MD Active NAPROXEN 500 MG TABS 1 tablet by mouth twice daily NAPROXEN 43882993408 No Longer Active Baltazar Childers MD Active PROAIR HFA 108 (90 BASE) MCG/ACT AERS 2 puffs four times a d ay as needed ALBUTEROL SULFATE 49992844663 Active Baltazar Childers MD Active DEPO-TESTOSTERONE 200 MG/ML OIL as directed RUFINO TOSTERONE CYPIONATE 30680090233 No Longer Active Baltazar Childers MD Active LIPITOR 20 MG TABS Take one by mouth daily in evening ATORVASTATIN CALCIUM 35442669646 No Longer Active Baltazar Childers MD Activ e CRESTOR 10 MG TABS 1 by mouth every day R OSUVASTATIN CALCIUM 59979498323 No Longer Active Baltazar Childers MD Activ e PHENTERMINE HCL 37.5 MG TABS Take one by mouth daily 2 PHENTERMINE HCL 91710229694 No Longer Active Baltazar Childers MD Activ e ROBAXIN-750 750 MG TABS Take one by mouth daily ME THOCARBAMOL 55789312195 Active Baltazar Childers MD Active TIZANIDINE HCL 4 MG TABS 1 daily as needed for muscle spasm 2011 TIZANIDINE HCL 53766543429 No Longer Active Dawna Salazar RN Active LumaticUCH ULTRA BLUE STRP Test twice a day GLUCO SE BLOOD 97071329732 Active Baltazar Childers MD Active [id number]-[id number] 50-325-40 MG TABS 1 four time s a day as needed for heacache [id number] 85342017784 Active Bella Suarez APRN Active SUMATRIPTAN SUCCINATE 100 MG TABS 1 tablet by mouth at onset of migraine as needed SUMATRIPTAN SUCCINATE 97898468429 Active Bella STEPHEN RN Active LORATADINE 10 MG TABS Take one by mouth daily LORATADINE 02133930108 Active Baltazar Childers MD Active FUROSEMIDE 40 MG TABS Take one by mouth daily FUROSEMIDE 26288279573 Active Baltazar Childers MD Active LISINOPRIL 20 MG TABS Take one by mouth daily at bedtime LISINOPRIL 09423445097 Active Baltazar Childers MD Active OMEPRAZOLE 20 MG CPDR Take one by mouth daily OMEPRAZOLE 93319266367 Active Blatazar Childers MD Active HYDROXYZINE HCL 25 MG TABS Take one by mouth daily HYDROXYZINE HCL 79092471088 Active Baltazar Childers MD Active GLIPIZIDE 10 MG TABS 1 tablet by mouth twice daily GLIPIZIDE 17150062253 Active Baltazar Childers MD Active ALPRAZOLAM 1 MG TABS 1 tablet by mouth daily at bedtime for restles s leg ALPRAZOLAM 55703997075 Active Baltazar Childers MD Active METFORMIN HCL 1000 MG TABS Take one by mouth twice daily METFORMIN HCL 55135977268 Active Baltazar Childers MD Active TIZANIDINE HCL 4 MG TABS 1 daily as needed for muscle spasm 2011 TIZANIDINE HCL 4 MG TABS 829333 TIZANIDINE HCL Inactiv e PHENTERMINE HCL 37.5 MG TABS Take one by mouth daily 2 PHENTERMINE HCL 37.5 MG TABS 345773 PHENTERMINE HCL Inactive CRESTOR 10 MG TABS 1 by mouth every day C RESTOR 10 MG TABS ROSUVASTATIN CALCIUM Inactive LIPITOR 20 MG TABS Take one by mouth daily in evening LIPITOR 20 MG TABS 664409 ATORVASTATIN CALCIUM Inactive DEPO-TESTOSTERONE 200 MG/ML OIL as directed 8 DEPO-TESTOSTERONE 200 MG/ML OIL 665002 TESTOSTERONE CYPIONATE Inactive NAPROXEN 500 MG TABS 1 tablet by mouth twice daily 201 07/27/22 NAPROXEN 500 MG TABS 309433 NAPROXEN Inactive GABAPENTIN 300 MG CAPS 1 po qd x 2 days, then 1 po BID x 2 d ays, then 1 po TID GABAPENTIN 300 MG CAPS 915549 GABAPENTIN Inact amie Immunizations Vaccine Administration Date Value Standard Floyd cription pneumococcal immunization administered Pneumovax 23 [CVX33] pneumococcal polysaccharide vaccine, 23 valent Seasonal influenza vaccine, injectable, containing preservative, for > 3 years old (Afluria, FluLaval, Fluzone, Fluvirin, Fluarix, Agriflu(>= 18 yo)) Fluzone (>3 yrs.) [DEN610] Influenza, seasonal, inject able Seasonal influenza vaccine, injectable, containing preservative, for > 3 years old (Afluria, FluLaval, Fluzone, Fluvirin, Fluarix, Agriflu(>= 18 yo)) Fluzone (>3 yrs.) [GDH662] Influenza, seasonal, inject able Vital Signs Date [...] C - Chemistry sodium, serum 140 mmol/L 607-936 6711/02/26 potassium, serum 5.3 mmol/L 3.5-5.2 chloride, serum [...] Panel - Chemistry sodium, serum 136 mmol/L 262-940 3580/01/06 potassium, serum 5.1 mmol/L 3.5-5.2 chloride, serum [...] mg/g mg/g{creat} 0-29 cholesterol, serum 319 mg/dL 923-707 5605/08/21 triglyceride, serum, fasting 546 mg/dL 30-200 HDL cholesterol, serum 39 mg/dL 32-96 LDL cholesterol, serum 167.00 mg/dL 5.00-130.00 hemoglobin A1C, blood, as % of total hemoglobin 7.7 % 4.3-6.0 sodium, serum 138 mmol/L 148-539 8688/08/21 potassium, serum 4.3 mmol/L 3.5-5.2 chloride, serum [...] mg/dL Encounters Code Encounter Date Provider Facility CPT-80787 Level 4 Est. Patient 14:15:19 CDT Baltazar Childers MD [facility] CPT-16038 Level 4 Est. Patient 12:20:13 CDT Baltazar Childers MD [facility] CPT-81592 Level 4 Est. Patient 14:52:45 CURING ROOM SUPERVISOR Baltazar Childers MD [facility] CPT-02576 Level 4 Est. Patient 14:18:34 CURING ROOM SUPERVISOR Baltazar Childers MD [facility] CPT-86685 Level 4 Est. Patient 15:18:29 CDT Baltazar Childers MD [facility] CPT-38459 Level 3 Est. Patient 12:45:34 CDT Baltazar Childers MD [facility] CPT-08393 Level 3 Est. Patient 10:10:11 CDT Baltazar Childers MD [facility] CPT-10377 Level 3 Est. Patient 14:07:50 CDT Baltazar Childers MD [facility] CPT-63891 Level 4 Est. Patient 12:26:10 CURING ROOM SUPERVISOR Baltazar Childers MD [facility] CPT-21444 Level 4 Est. Patient 14:45:38 CDT Baltazar Childers MD [facility] CPT-33821 Level 4 New Patient 12:30:48 CDT Baltazar hinton MD [facility] Procedures Code Procedure Name Date Entry Date Standard Desc ription CPT-40301 Fluzone Quadrivalent Intramuscular Suspe nsion 0.5 ML 10:49:13 CDT CPT-82578 First Vx Component - Ix admi n via ID IM or jet inj without physician counseling 15:17:19 CURING ROOM SUPERVISOR CPT-41070 Pneumovax 15:17:19 CURING ROOM SUPERVISOR CPT-79063 Pneumovax 14:52:45 CURING ROOM SUPERVISOR CPT-47591 Venipuncture Draw Fee 14:06:30 CURING ROOM SUPERVISOR CPT-000 Give Appropriate Flu Vaccine 14:18:34 CURING ROOM SUPERVISOR 2 CPT-36807 Administration single or combination vac cine inc oral 14:46:00 CURING ROOM SUPERVISOR CPT-20997 Influenza split virus > age 3 14:46:00 CURING ROOM SUPERVISOR CPT-OV Office Visit 19:13:16 CDT CPT-03284 Zostavax 18:41:56 CDT CPT-96200 Administration single or combination vac cine inc oral 12:56:39 CDT CPT-44668 Zoster Vaccine (Zostavax) 12:56:39 CDT 2012 CPT-59224 Venipuncture Draw Fee 10:58:57 CDT CPT-08950 Sono pelvis non OB uterus ovaries cervix 17:45:04 CDT CPT-17183 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
--- OUTSIDE RECORDS SUMMARY | 2019-10-27 13:46 | XMS REPORT | Clinical Summary ---
Author Author Admin, Elba Lance [facility] Address Unknown [...] libido COLON POLYPS 211.3 Resolved Lolis Thomas [employer]ESTER Benign neoplasm of colon PERIPHERAL NEUROPATHY 356.9 [...] y atherosclerosis of unspecified type of vessel, osage or graft OTH NONSPC ABN FINDNG RAD&OTH [...] tab every 6-8 hour s PRN HYDROCODONE-ACETAMINOPHEN 25873922578 Active Baltazar Childers MD Active NORTRIPTYLINE HCL 50 MG CAPS 1 every night for neuropathy 4 NORTRIPTYLINE HCL 66694314602 Active Baltazar Childers MD Acti ve GABAPENTIN 300 MG CAPS 1 three times a day GABAPE NTIN 00514644492 Active Baltazar Childers MD Active GABAPENTIN 300 MG CAPS 1 po qd x 2 days, then 1 po BID x 2 d ays, then 1 po TID GABAPENTIN 44141727564 No Longer Active Baltazar silverman MD Active TRAMADOL HCL 50 MG TABS 1 twice a day as needed for pain TRAMADOL HCL 87446663149 Active Baltazar Childers MD Active NAPROXEN 500 MG TABS 1 tablet by mouth twice daily NAPROXEN 94314910322 No Longer Active Baltazar Childers MD Active PROAIR HFA 108 (90 BASE) MCG/ACT AERS 2 puffs four times a d ay as needed ALBUTEROL SULFATE 17962410568 Active Baltazar Childers MD Active DEPO-TESTOSTERONE 200 MG/ML OIL as directed RUFINO TOSTERONE CYPIONATE 35491153781 No Longer Active Baltazar Childers MD Active LIPITOR 20 MG TABS Take one by mouth daily in evening ATORVASTATIN CALCIUM 57295049450 No Longer Active Baltazar Childers MD Activ e CRESTOR 10 MG TABS 1 by mouth every day R OSUVASTATIN CALCIUM 08478416359 No Longer Active Baltazar Childers MD Activ e PHENTERMINE HCL 37.5 MG TABS Take one by mouth daily 2 PHENTERMINE HCL 18087324661 No Longer Active Baltazar Childers MD Activ e ROBAXIN-750 750 MG TABS Take one by mouth daily ME THOCARBAMOL 68291245537 Active Baltazar Childers MD Active TIZANIDINE HCL 4 MG TABS 1 daily as needed for muscle spasm 2011 TIZANIDINE HCL 90345214671 No Longer Active Dawna Salazar RN Active ONETOUCH ULTRA BLUE STRP Test twice a day GLUCO SE BLOOD 36121554990 Active Baltazar Childers MD Active [id number] 50-325-40 MG TABS 1 four time s a day as needed for heacache [id number] 43874907725 Active Baltaazr Childers MD Active SUMATRIPTAN SUCCINATE 100 MG TABS 1 tablet by mouth at onset of migraine as needed SUMATRIPTAN SUCCINATE 03716704035 Active Baltazar bynum MD Active LORATADINE 10 MG TABS Take one by mouth daily LORATADINE 94358805822 Active Baltazar Childers MD Active FUROSEMIDE 40 MG TABS Take one by mouth daily FUROSEMIDE 04770458162 Active Baltazar Childers MD Active LISINOPRIL 20 MG TABS Take one by mouth daily at bedtime LISINOPRIL 06669888087 Active Baltazar Childers MD Active OMEPRAZOLE 20 MG CPDR Take one by mouth daily OMEPRAZOLE 75787355902 Active Baltazar Childers MD Active HYDROXYZINE HCL 25 MG TABS Take one by mouth daily HYDROXYZINE HCL 90786946777 Active Baltazar Childers MD Active GLIPIZIDE 10 MG TABS 1 tablet by mouth twice daily GLIPIZIDE 83207067809 Active Baltazar Childers MD Active ALPRAZOLAM 1 MG TABS 1 tablet by mouth daily at bedtime for restles s leg ALPRAZOLAM 61470416404 Active Baltazar Childers MD Active METFORMIN HCL 1000 MG TABS Take one by mouth twice daily METFORMIN HCL 53156229263 Active Baltazar Childers MD Active TIZANIDINE HCL 4 MG TABS 1 daily as needed for muscle spasm 2011 TIZANIDINE HCL 4 MG TABS 392441 TIZANIDINE HCL Inactiv e PHENTERMINE HCL 37.5 MG TABS Take one by mouth daily 2 PHENTERMINE HCL 37.5 MG TABS 046897 PHENTERMINE HCL Inactive CRESTOR 10 MG TABS 1 by mouth every day C RESTOR 10 MG TABS ROSUVASTATIN CALCIUM Inactive LIPITOR 20 MG TABS Take one by mouth daily in evening LIPITOR 20 MG TABS 805049 ATORVASTATIN CALCIUM Inactive DEPO-TESTOSTERONE 200 MG/ML OIL as directed 8 DEPO-TESTOSTERONE 200 MG/ML OIL 503836 TESTOSTERONE CYPIONATE Inactive NAPROXEN 500 MG TABS 1 tablet by mouth twice daily 201 07/27/22 NAPROXEN 500 MG TABS 293170 NAPROXEN Inactive GABAPENTIN 300 MG CAPS 1 po qd x 2 days, then 1 po BID x 2 d ays, then 1 po TID GABAPENTIN 300 MG CAPS 371154 GABAPENTIN Inact amie Immunizations Vaccine Administration Date Value Standard Floyd cription pneumococcal immunization administered Pneumovax 23 [CVX33] pneumococcal polysaccharide vaccine, 23 valent Seasonal influenza vaccine, injectable, containing preservative, for > 3 years old (Afluria, FluLaval, Fluzone, Fluvirin, Fluarix, Agriflu(>= 18 yo)) Fluzone (>3 yrs.) [[id number]] Influenza, seasonal, inject able Seasonal influenza vaccine, injectable, containing preservative, for > 3 years old (Afluria, FluLaval, Fluzone, Fluvirin, Fluarix, Agriflu(>= 18 yo)) Fluzone (>3 yrs.) [[id number]] Influenza, seasonal, inject able Vital Signs Date [...] C - Chemistry sodium, serum 140 mmol/L 970-481 6261/02/26 potassium, serum 5.3 mmol/L 3.5-5.2 chloride, serum [...] 273 10^3/MM^3 10*3/mm3 142-424 Lab Report: CBC, Comp. Metabolic Panel, Lipid Panel, HGBA1C, MICROALBUMI ... - Chemistry alanine aminotransferase (SGPT), serum 76 U/L 12-78 aspartate aminotransferase (SGOT), serum 39 U/L 15-37 alkaline phosphatase, serum 62 U/L 50-136 bilirubin, serum, total 0.39 mg/dL 0.00-1.00 cholesterol, serum 345 mg/dL 852-935 4352/08/26 triglyceride, serum, fasting 635 mg/dL 30-200 HDL [...] 11 .6-14.8 platelet count 301 10^3/MM^3 10*3/mm3 663-953 8467/08/26 hematocrit, blood 35.5 % 36.0-46.0 hemoglobin, blood 11.3 g/dL 12.0-16.0 erythrocyte (RBC) count 3.69 10^6/MM^3 10*6/mm3 4.04-5.4 8 leukocyte count, blood 6.0 10^3/MM^3 10*3/mm3 4.6-10.2 Lab Report: CBC, Comp. Metabolic Panel, Lipid Panel, HGBA1C, MICROALBUMI ... - Lab microalbumin, urine 10 0-19 Lab Report: CBC, Renal Panel - Chemistry sodium, serum 136 mmol/L 949-833 7531/01/06 potassium, serum 5.1 mmol/L 3.5-5.2 chloride, serum [...] mg/g mg/g{creat} 0-29 cholesterol, serum 319 mg/dL 729-726 3961/08/21 triglyceride, serum, fasting 546 mg/dL 30-200 HDL cholesterol, serum 39 mg/dL 32-96 LDL cholesterol, serum 167.00 mg/dL 5.00-130.00 hemoglobin A1C, blood, as % of total hemoglobin 7.7 % 4.3-6.0 sodium, serum 138 mmol/L 221-321 8504/08/21 potassium, serum 4.3 mmol/L 3.5-5.2 chloride, serum [...] Panel - Lab microalbumin, urine 10 0-19 Lab Report: Potassium - Chemistry potassium, serum 4.6 mmol/L 3.5-5.2 Lab Report: Renal Panel - Chemistry sodium, serum 139 mmol/L 860-620 1062/08/26 potassium, serum 5.8 mmol/L 3.5-5.2 chloride, serum [...] mg/dL Encounters Code Encounter Date Provider Facility CPT-25471 Level 4 Est. Patient 12:20:13 CDT Baltazar Childers MD [facility] CPT-29652 Level 4 Est. Patient 14:52:45 [employer] Baltazar Childers MD [facility] CPT-07735 Level 4 Est. Patient 14:18:34 [employer] Baltazar Childers MD [facility] CPT-81789 Level 4 Est. Patient 15:18:29 CDT Baltazar Childers MD [facility] CPT-53689 Level 3 Est. Patient 12:45:34 CDT Baltazar Childers MD [facility] CPT-06772 Level 3 Est. Patient 10:10:11 CDT Baltazar Childers MD [facility] CPT-03529 Level 3 Est. Patient 14:07:50 CDT Baltazar Childers MD [facility] CPT-59489 Level 4 Est. Patient 12:26:10 [employer] Baltazar Childers MD [facility] CPT-49586 Level 4 Est. Patient 14:45:38 CDT Baltazar Childers MD [facility] CPT-04860 Level 4 New Patient 12:30:48 CDT Baltazar hinton MD [facility] Procedures Code Procedure Name Date Entry Date Standard Desc ription CPT-13081 First Vx Component - Ix admi n via ID IM or jet inj without physician counseling 15:17:19 [employer] CPT-30097 Pneumovax 15:17:19 [employer] CPT-08580 Pneumovax 14:52:45 [employer] CPT-58327 Venipuncture Draw Fee 14:06:30 [employer] CPT-000 Give Appropriate Flu Vaccine 14:18:34 [employer] 2 CPT-60716 Administration single or combination vac cine inc oral 14:46:00 [employer] CPT-34755 Influenza split virus > age 3 14:46:00 [employer] CPT-OV Office Visit 19:13:16 CDT CPT-92258 Zostavax 18:41:56 CDT CPT-10591 Administration single or combination vac cine inc oral 12:56:39 CDT CPT-02506 Zoster Vaccine (Zostavax) 12:56:39 CDT 2012 CPT-70817 Venipuncture Draw Fee 10:58:57 CDT CPT-30018 Sono pelvis non OB uterus ovaries cervix 17:45:04 CDT CPT-73375 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
--- OUTSIDE RECORDS SUMMARY | 2019-10-27 13:46 | XMS REPORT | Clinical Summary ---
Author Author Admin, Elba Lance [facility] Address Unknown Phone Allergies, Adverse [...] y atherosclerosis of unspecified type of vessel, emmonak or graft OTH NONSPC ABN FINDNG RAD&OTH [...] tab every 6-8 hour s PRN HYDROCODONE-ACETAMINOPHEN 01922147736 Active Baltazar Childers MD Active NORTRIPTYLINE HCL 50 MG CAPS 1 every night for neuropathy 4 NORTRIPTYLINE HCL 49320427067 Active Baltazar Childers MD Acti ve GABAPENTIN 300 MG CAPS 1 three times a day GABAPE NTIN 89297871930 Active Baltazar Childers MD Active GABAPENTIN 300 MG CAPS 1 po qd x 2 days, then 1 po BID x 2 d ays, then 1 po TID GABAPENTIN 40366641717 No Longer Active Baltazar silverman MD Active TRAMADOL HCL 50 MG TABS 1 twice a day as needed for pain TRAMADOL HCL 92707946574 Active Baltazar Childers MD Active NAPROXEN 500 MG TABS 1 tablet by mouth twice daily NAPROXEN 86899523453 No Longer Active Baltazar Childers MD Active PROAIR HFA 108 (90 BASE) MCG/ACT AERS 2 puffs four times a d ay as needed ALBUTEROL SULFATE 20849362563 Active Baltazar Childers MD Active DEPO-TESTOSTERONE 200 MG/ML OIL as directed RUFINO TOSTERONE CYPIONATE 81210754683 No Longer Active Baltazar Childers MD Active LIPITOR 20 MG TABS Take one by mouth daily in evening ATORVASTATIN CALCIUM 58464034373 No Longer Active Baltazar Childers MD Activ e CRESTOR 10 MG TABS 1 by mouth every day R OSUVASTATIN CALCIUM 73888061296 No Longer Active Baltazar Childers MD Activ e PHENTERMINE HCL 37.5 MG TABS Take one by mouth daily 2 PHENTERMINE HCL 17022285235 No Longer Active Baltazar Childers MD Activ e ROBAXIN-750 750 MG TABS Take one by mouth daily ME THOCARBAMOL 68745093538 Active Baltazar Childers MD Active TIZANIDINE HCL 4 MG TABS 1 daily as needed for muscle spasm 2011 TIZANIDINE HCL 62132373817 No Longer Active Dawna Salazar RN Active ONETOUCH ULTRA BLUE STRP Test twice a day GLUCO SE BLOOD 66729990182 Active Baltazra Childers MD Active [id number] 50-325-40 MG TABS 1 four time s a day as needed for heacache [id number] 03113069886 Active Baltazar Childers MD Active SUMATRIPTAN SUCCINATE 100 MG TABS 1 tablet by mouth at onset of migraine as needed SUMATRIPTAN SUCCINATE 69413017083 Active Shireen Miller APRN Active LORATADINE 10 MG TABS Take one by mouth daily LORATADINE 44059105559 Active Brad Hughes Active FUROSEMIDE 40 MG TABS Take one by mouth daily FUROSEMIDE 84908988022 Active Shireen Miller APRN Active LISINOPRIL 20 MG TABS Take one by mouth daily at bedtime LISINOPRIL 53262204904 Active Shireen Miller APRN Active OMEPRAZOLE 20 MG CPDR Take one by mouth daily OMEPRAZOLE 69385090230 Active Shireen Miller APRN Active HYDROXYZINE HCL 25 MG TABS Take one by mouth daily HYDROXYZINE HCL 99777060227 Active Shireen Miller APRN Active GLIPIZIDE 10 MG TABS 1 tablet by mouth twice daily GLIPIZIDE 31169784372 Active Shireen Miller APRN Active ALPRAZOLAM 1 MG TABS 1 tablet by mouth daily at bedtime for restles s leg ALPRAZOLAM 05585786732 Active Baltazar Childers MD Active METFORMIN HCL 1000 MG TABS Take one by mouth twice daily METFORMIN HCL 79750120924 Active Shireen Miller APRN Active TIZANIDINE HCL 4 MG TABS 1 daily as needed for muscle spasm 2011 TIZANIDINE HCL 4 MG TABS 191844 TIZANIDINE HCL Inactiv e PHENTERMINE HCL 37.5 MG TABS Take one by mouth daily 2 PHENTERMINE HCL 37.5 MG TABS 324626 PHENTERMINE HCL Inactive CRESTOR 10 MG TABS 1 by mouth every day C RESTOR 10 MG TABS ROSUVASTATIN CALCIUM Inactive LIPITOR 20 MG TABS Take one by mouth daily in evening LIPITOR 20 MG TABS 675722 ATORVASTATIN CALCIUM Inactive DEPO-TESTOSTERONE 200 MG/ML OIL as directed 8 DEPO-TESTOSTERONE 200 MG/ML OIL 744656 TESTOSTERONE CYPIONATE Inactive NAPROXEN 500 MG TABS 1 tablet by mouth twice daily 201 07/27/22 NAPROXEN 500 MG TABS 778712 NAPROXEN Inactive GABAPENTIN 300 MG CAPS 1 po qd x 2 days, then 1 po BID x 2 d ays, then 1 po TID GABAPENTIN 300 MG CAPS 489807 GABAPENTIN Inact amie Immunizations Vaccine Administration Date Value Standard Floyd cription pneumococcal immunization administered Pneumovax 23 [CVX33] pneumococcal polysaccharide vaccine, 23 valent Seasonal influenza vaccine, injectable, containing preservative, for > 3 years old (Afluria, FluLaval, Fluzone, Fluvirin, Fluarix, Agriflu(>= 18 yo)) Fluzone (>3 yrs.) [[id number]] Influenza, seasonal, inject able Seasonal influenza vaccine, injectable, containing preservative, for > 3 years old (Afluria, FluLaval, Fluzone, Fluvirin, Fluarix, Agriflu(>= 18 yo)) Fluzone (>3 yrs.) [[id number]] Influenza, seasonal, inject able Vital Signs Date [...] C - Chemistry sodium, serum 140 mmol/L 279-472 6280/02/26 potassium, serum 5.3 mmol/L 3.5-5.2 chloride, serum 101 mmol/L 98-107 carbon dioxide, venous blood 36.9 mmol/L 21.0-32 .0 blood glucose 151 mg/dL 65-110 calcium, serum 8.7 mg/dL 8.5-10.1 urea nitrogen, blood 19 mg/dL 7-18 creatinine, serum 1.60 mg/dL 0.60-1.30 hemoglobin A1C, blood, as % of total hemoglobin 7.9 % 4.3-6.0 Lab Report: CBC, Basic Metabolic Panel, HGBA1C - Chemistry sodium, serum 138 mmol/L 793-612 7000/05/23 potassium, serum 4.9 mmol/L 3.5-5.2 chloride, serum 98 mmol/L 98-107 carbon dioxide, venous blood 28.8 mmol/L 21.0-32 .0 blood glucose 116 mg/dL 65-110 calcium, serum 9.2 mg/dL 8.5-10.1 urea nitrogen, blood 24 mg/dL 7-18 creatinine, serum 2.00 mg/dL 0.60-1.30 hemoglobin A1C, blood, as % of total hemoglobin 7.1 % 4.3-6.0 Lab Report: CBC, Basic Metabolic Panel, HGBA1C - Hematology mean corpuscular hemoglobin, RBC 31.4 pg 27. 0-31.2 mean corpuscular hemoglobin concentration, RBC 32.1 G/DL % 31.8-35.4 red blood cell distribution width 14.4 % 11 .6-14.8 platelet count 317 UL 10*3/mm3 657-758 4027/05/23 mean corpuscular volume, RBC 98 fL 80-97 hematocrit, blood 36.8 % 36.0-46.0 hemoglobin, blood 11.8 g/dL 12.0-16.0 erythrocyte (RBC) count 3.76 UL 10*6/mm3 4.04-5.48 leukocyte count, blood 6.3 UL 10*3/mm3 4.6-10.2 Lab Report: CBC, Comp. Metabolic Panel, Lipid Panel, HGBA1C, MICROALBUMI ... - Chemistry alanine aminotransferase (SGPT), serum 76 U/L 12-78 aspartate aminotransferase (SGOT), serum 39 U/L 15-37 alkaline phosphatase, serum 62 U/L 50-136 bilirubin, serum, total 0.39 mg/dL 0.00-1.00 cholesterol, serum 345 mg/dL 331-411 6036/08/26 triglyceride, serum, fasting 635 mg/dL 30-200 HDL [...] Panel - Chemistry sodium, serum 136 mmol/L 039-341 3435/01/06 potassium, serum 5.1 mmol/L 3.5-5.2 chloride, serum [...] Panel - Chemistry sodium, serum 139 mmol/L 889-668 3762/08/26 potassium, serum 5.8 mmol/L 3.5-5.2 chloride, serum 98 mmol/L 98-107 carbon dioxide, venous blood 33.0 mmol/L 21.0-32 .0 blood glucose 107 mg/dL 65-110 urea nitrogen, blood 26 mg/dL 7-18 creatinine, serum 1.80 mg/dL 0.60-1.30 calcium, serum 9.3 mg/dL 8.5-10.1 potassium, serum 4.9 mmol/L 3.5-5.2 chloride, serum 100 mmol/L 98-107 carbon dioxide, venous blood 28.1 mmol/L 21.0-32 .0 blood glucose 108 mg/dL 65-110 urea nitrogen, blood 20 mg/dL 7-18 sodium, serum 138 mmol/L 098-580 0312/06/17 creatinine, serum 1.60 mg/dL 0.60-1.30 calcium, serum [...] Negative nitrite, urine, semiquantitative Negative Neg ative specific gravity, urine 1.010 1.000-1.030 pH, urine, semiquantitative 6.0 5.0-8.5 urine color Straw Colorless;Lightyellow;St raw;Yellow appearance, urine Clear Clear glucose, urine, semiquantitative Negative Neg ative ketones, [...] mg/dL Encounters Code Encounter Date Provider Facility CPT-92093 Level 4 Est. Patient 14:52:45 [employer]PER[employer] Baltazar Childers MD [facility] CPT-94115 Level 4 Est. Patient 14:18:34 [employer] Baltazar Childers MD [facility] CPT-93620 Level 4 Est. Patient 15:18:29 CDT Baltazar Childers MD [facility] CPT-20631 Level 3 Est. Patient 12:45:34 CDT Baltazar Childers MD [facility] CPT-78421 Level 3 Est. Patient 10:10:11 CDT Baltazar Childers MD [facility] CPT-85702 Level 3 Est. Patient 14:07:50 CDT Baltazar Childers MD [facility] CPT-72740 Level 4 Est. Patient 12:26:10 [employer] Baltazar Childers MD [facility] CPT-81473 Level 4 Est. Patient 14:45:38 CDT Baltazar Childers MD [facility] CPT-46794 Level 4 New Patient 12:30:48 CDT Baltazar hinton MD [facility] Procedures Code Procedure Name Date Entry Date Standard Desc ription CPT-49094 First Vx Component - Ix admi n via ID IM or jet inj without physician counseling 15:17:19 [employer] CPT-64925 Pneumovax 15:17:19 [employer] CPT-50977 Pneumovax 14:52:45 [employer] CPT-24876 Venipuncture Draw Fee 14:06:30 [employer] CPT-000 Give Appropriate Flu Vaccine 14:18:34 [employer] 2 CPT-04391 Administration single or combination vac cine inc oral 14:46:00 [employer] CPT-68129 Influenza split virus > age 3 14:46:00 [employer] CPT-OV Office Visit 19:13:16 CDT CPT-23589 Zostavax 18:41:56 CDT CPT-09040 Administration single or combination vac cine inc oral 12:56:39 CDT CPT-00130 Zoster Vaccine (Zostavax) 12:56:39 CDT 2012 CPT-25343 Venipuncture Draw Fee 10:58:57 CDT CPT-93514 Sono pelvis non OB uterus ovaries cervix 17:45:04 CDT CPT-48761 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
--- OUTSIDE RECORDS SUMMARY | 2019-10-27 13:47 | XMS REPORT | Clinical Summary ---
Author Author Admin, Elba Lance [facility] Address Unknown Phone Allergies, Adverse Reactions, [...] y atherosclerosis of unspecified type of vessel, [place] or graft OTH NONSPC ABN FINDNG RAD&OTH [...] tab every 6-8 hour s PRN HYDROCODONE-ACETAMINOPHEN 39107487255 Active Baltazar Childers MD Active NORTRIPTYLINE HCL 50 MG CAPS 1 every night for neuropathy 4 NORTRIPTYLINE HCL 32567417028 Active Baltazar Childers MD Acti ve GABAPENTIN 300 MG CAPS 1 three times a day GABAPE NTIN 53117581454 Active Baltazar Childers MD Active GABAPENTIN 300 MG CAPS 1 po qd x 2 days, then 1 po BID x 2 d ays, then 1 po TID GABAPENTIN 44416197799 No Longer Active Baltazar silverman MD Active TRAMADOL HCL 50 MG TABS 1 twice a day as needed for pain TRAMADOL HCL 17559912028 Active Baltazar Childers MD Active NAPROXEN 500 MG TABS 1 tablet by mouth twice daily NAPROXEN 67693981329 No Longer Active Baltazar Childers MD Active PROAIR HFA 108 (90 BASE) MCG/ACT AERS 2 puffs four times a d ay as needed ALBUTEROL SULFATE 66608779618 Active Baltazar Childers MD Active DEPO-TESTOSTERONE 200 MG/ML OIL as directed RUFINO TOSTERONE CYPIONATE 09412492855 No Longer Active Baltazar Childers MD Active LIPITOR 20 MG TABS Take one by mouth daily in evening ATORVASTATIN CALCIUM 40158382411 No Longer Active Baltazar Childers MD Activ e CRESTOR 10 MG TABS 1 by mouth every day R OSUVASTATIN CALCIUM 42447509133 No Longer Active Baltazar Childers MD Activ e PHENTERMINE HCL 37.5 MG TABS Take one by mouth daily 2 PHENTERMINE HCL 39755103152 No Longer Active Baltazar Childers MD Activ e ROBAXIN-750 750 MG TABS Take one by mouth daily ME THOCARBAMOL 03401251783 Active Baltazar Childers MD Active TIZANIDINE HCL 4 MG TABS 1 daily as needed for muscle spasm 2011 TIZANIDINE HCL 69007673784 No Longer Active Dawna Salazar RN Active ONETOUCH ULTRA BLUE STRP Test twice a day GLUCO SE BLOOD 42032644234 Active Baltazar Childers MD Active [id number] 50-325-40 MG TABS 1 four time s a day as needed for heacache [id number] 65059897255 Active Baltazar Childers MD Active SUMATRIPTAN SUCCINATE 100 MG TABS 1 tablet by mouth at onset of migraine as needed SUMATRIPTAN SUCCINATE 94126889102 Active Shireen Miller APRN Active LORATADINE 10 MG TABS Take one by mouth daily LORATADINE 75387586157 Active Brad Hughes Active FUROSEMIDE 40 MG TABS Take one by mouth daily FUROSEMIDE 72991004449 Active Shireen Miller APRN Active LISINOPRIL 20 MG TABS Take one by mouth daily at bedtime LISINOPRIL 27817378376 Active Shireen Miller APRN Active OMEPRAZOLE 20 MG CPDR Take one by mouth daily OMEPRAZOLE 72353106621 Active Shireen Miller APRN Active HYDROXYZINE HCL 25 MG TABS Take one by mouth daily HYDROXYZINE HCL 44167089704 Active Shireen Miller APRN Active GLIPIZIDE 10 MG TABS 1 tablet by mouth twice daily GLIPIZIDE 12339820572 Active Shireen Miller APRN Active ALPRAZOLAM 1 MG TABS 1 tablet by mouth daily at bedtime for restles s leg ALPRAZOLAM 43923231836 Active Baltazar Childers MD Active METFORMIN HCL 1000 MG TABS Take one by mouth twice daily METFORMIN HCL 65162353237 Active Shireen Miller APRN Active TIZANIDINE HCL 4 MG TABS 1 daily as needed for muscle spasm 2011 TIZANIDINE HCL 4 MG TABS 293645 TIZANIDINE HCL Inactiv e PHENTERMINE HCL 37.5 MG TABS Take one by mouth daily 2 PHENTERMINE HCL 37.5 MG TABS 820159 PHENTERMINE HCL Inactive CRESTOR 10 MG TABS 1 by mouth every day C RESTOR 10 MG TABS ROSUVASTATIN CALCIUM Inactive LIPITOR 20 MG TABS Take one by mouth daily in evening LIPITOR 20 MG TABS 211401 ATORVASTATIN CALCIUM Inactive DEPO-TESTOSTERONE 200 MG/ML OIL as directed 8 DEPO-TESTOSTERONE 200 MG/ML OIL 476548 TESTOSTERONE CYPIONATE Inactive NAPROXEN 500 MG TABS 1 tablet by mouth twice daily 201 07/27/22 NAPROXEN 500 MG TABS 782041 NAPROXEN Inactive GABAPENTIN 300 MG CAPS 1 po qd x 2 days, then 1 po BID x 2 d ays, then 1 po TID GABAPENTIN 300 MG CAPS 207933 GABAPENTIN Inact amie Immunizations Vaccine Administration Date Value Standard Floyd cription pneumococcal immunization administered Pneumovax 23 [CVX33] pneumococcal polysaccharide vaccine, 23 valent Seasonal influenza vaccine, injectable, containing preservative, for > 3 years old (Afluria, FluLaval, Fluzone, Fluvirin, Fluarix, Agriflu(>= 18 yo)) Fluzone (>3 yrs.) [[id number]] Influenza, seasonal, inject able Seasonal influenza vaccine, injectable, containing preservative, for > 3 years old (Afluria, FluLaval, Fluzone, Fluvirin, Fluarix, Agriflu(>= 18 yo)) Fluzone (>3 yrs.) [[id number]] Influenza, seasonal, inject able Vital Signs Date [...] - 3141-9 237 [lb_av] Weigh t Measured Diagnostic Results Date Name Value Unit Range Description Lab Report: Basic Metabolic Panel, HGBA1 C - Chemistry carbon dioxide, venous blood 36.9 mmol/L 21.0-32 .0 blood glucose 151 mg/dL 65-110 calcium, serum 8.7 mg/dL 8.5-10.1 urea nitrogen, blood 19 mg/dL 7-18 creatinine, serum 1.60 mg/dL 0.60-1.30 hemoglobin A1C, blood, as % of total hemoglobin 7.9 % 4.3-6.0 sodium, serum 140 mmol/L 482-941 7253/02/26 potassium, serum 5.3 mmol/L 3.5-5.2 chloride, serum 101 mmol/L 98-107 Lab Report: CBC, Comp. Metabolic Panel, Lipid Panel, HGBA1C, MICROALBUMI ... - Chemistry alanine aminotransferase (SGPT), serum 76 U/L 12-78 aspartate aminotransferase (SGOT), serum 39 U/L 15-37 alkaline phosphatase, serum 62 U/L 50-136 bilirubin, serum, total 0.39 mg/dL 0.00-1.00 cholesterol, serum 345 mg/dL 551-566 2347/08/26 triglyceride, serum, fasting 635 mg/dL 30-200 HDL [...] Panel - Chemistry sodium, serum 136 mmol/L 648-399 9085/01/06 potassium, serum 5.1 mmol/L 3.5-5.2 chloride, serum [...] Panel - Chemistry sodium, serum 139 mmol/L 221-280 9315/08/26 potassium, serum 5.8 mmol/L 3.5-5.2 chloride, serum 98 mmol/L 98-107 carbon dioxide, venous blood 33.0 mmol/L 21.0-32 .0 blood glucose 107 mg/dL 65-110 urea nitrogen, blood 26 mg/dL 7-18 creatinine, serum 1.80 mg/dL 0.60-1.30 calcium, serum 9.3 mg/dL 8.5-10.1 sodium, serum 138 mmol/L 412-049 1616/06/17 creatinine, serum 1.60 mg/dL 0.60-1.30 calcium, serum 9.5 mg/dL 8.5-10.1 potassium, serum 4.9 mmol/L 3.5-5.2 chloride, serum 100 mmol/L 98-107 carbon dioxide, venous blood 28.1 mmol/L 21.0-32 .0 blood glucose 108 mg/dL 65-110 urea nitrogen, blood 20 mg/dL 7-18 Lab Report: UADIP W/MICRO, AUTO - Chemis try RBC, urine, dipstick Negative Negative protein, total urine random Negative mg/dL Negative RBC, urine, dipstick Negative Negative protein, total urine random Negative mg/dL Negative Lab Report: UADIP W/MICRO, AUTO - Urinal ysis glucose, urine, semiquantitative Negative Neg ative glucose, urine, semiquantitative Negative Neg ative ketones, urine, by test strip Negative Negati ve bilirubin, urine Negative Negative urobilinogen, urine, semiquantitative (dipstick) 0.2 Normal leukocyte esterase, urine, by dipstick Negative Negative nitrite, urine, semiquantitative Negative Neg ative appearance, urine Clear Clear specific gravity, urine 1.010 1.000-1.030 pH, urine, semiquantitative 6.0 5.0-8.5 urine color Straw Colorless;Lightyellow;St raw;Yellow ketones, urine, by test strip Negative Negati ve bilirubin, urine Negative Negative pH, urine, semiquantitative 5.5 5.0-8.5 specific gravity, urine 1.010 1.000-1.030 appearance, urine Clear Clear urine color Light yellow Colorless;Lightyellow; Straw;Yellow urobilinogen, urine, semiquantitative (dipstick) 0.2 Normal leukocyte esterase, urine, by dipstick Negative Negative nitrite, urine, semiquantitative Negative Neg ative Office Visit: med check - Chemistry cholesterol, [...] mg/dL Encounters Code Encounter Date Provider Facility CPT-24146 Level 4 Est. Patient 14:52:45 PERSONNEL [employer]ITOR Baltazar Childers MD [facility] CPT-45166 Level 4 Est. Patient 14:18:34 PERSONNEL MONITOR Baltazar Childers MD [facility] CPT-96832 Level 4 Est. Patient 15:18:29 CDT Baltazar Childers MD [facility] CPT-64135 Level 3 Est. Patient 12:45:34 CDT Baltazar Childers MD [facility] CPT-79712 Level 3 Est. Patient 10:10:11 CDT Baltazar Childers MD [facility] CPT-17037 Level 3 Est. Patient 14:07:50 CDT Baltazar Childers MD [facility] CPT-79304 Level 4 Est. Patient 12:26:10 PERSONNEL [employer]ITOR Baltazar Childers MD [facility] CPT-44002 Level 4 Est. Patient 14:45:38 CDT Baltazar Childers MD [facility] CPT-21752 Level 4 New Patient 12:30:48 CDT Baltazar hinton MD [facility] Procedures Code Procedure Name Date Entry Date Standard Desc ription CPT-18095 First Vx Component - Ix admi n via ID IM or jet inj without physician counseling 15:17:19 PERSONNEL [employer]ITOR CPT-97939 Pneumovax 23 15:17:19 PERSONNEL MONITOR CPT-12560 Pneumovax 14:52:45 PERSONNEL MONITOR CPT-96335 Venipuncture Draw Fee 14:06:30 PERSONNEL MONITOR CPT-000 Give Appropriate Flu Vaccine 14:18:34 PERSONNEL MONITOR 2 CPT-49807 Administration single or combination vac cine inc oral 14:46:00 PERSONNEL MONITOR CPT-74527 Influenza split virus > age 3 14:46:00 PERSONNEL MONITOR CPT-OV Office Visit 19:13:16 CDT CPT-92472 Zostavax 18:41:56 CDT CPT-42068 Administration single or combination vac cine inc oral 12:56:39 CDT CPT-54990 Zoster Vaccine (Zostavax) 12:56:39 CDT 2012 CPT-17244 Venipuncture Draw Fee 10:58:57 CDT CPT-60116 Sono pelvis non OB uterus ovaries cervix 17:45:04 CDT CPT-18509 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
--- OUTSIDE RECORDS SUMMARY | 2019-10-27 13:47 | XMS REPORT | Clinical Summary ---
Author Author Admin, Elba Lance [facility] Address Unknown Phone Allergies, Adverse Reactions, [...] y atherosclerosis of unspecified type of vessel, [place] [...] tab every 6-8 hour s PRN HYDROCODONE-ACETAMINOPHEN 87382943315 Active Baltazar Childers MD Active NORTRIPTYLINE HCL 50 MG CAPS 1 every night for neuropathy 4 NORTRIPTYLINE HCL 11191965145 Active Baltazar Childers MD Acti ve GABAPENTIN 300 MG CAPS 1 three times a day GABAPE NTIN 48509607245 Active Baltazar Childers MD Active GABAPENTIN 300 MG CAPS 1 po qd x 2 days, then 1 po BID x 2 d ays, then 1 po TID GABAPENTIN 83061277697 No Longer Active Baltazar silverman MD Active TRAMADOL HCL 50 MG TABS 1 twice a day as needed for pain TRAMADOL HCL 40916526765 Active Baltazar Childers MD Active NAPROXEN 500 MG TABS 1 tablet by mouth twice daily NAPROXEN 83926489213 No Longer Active Baltazar Childers MD Active PROAIR HFA 108 (90 BASE) MCG/ACT AERS 2 puffs four times a d ay as needed ALBUTEROL SULFATE 02785088038 Active Baltazar Childers MD Active DEPO-TESTOSTERONE 200 MG/ML OIL as directed RUFINO TOSTERONE CYPIONATE 85678867029 No Longer Active Baltazar Childers MD Active LIPITOR 20 MG TABS Take one by mouth daily in evening ATORVASTATIN CALCIUM 59197323003 No Longer Active Baltazar Childers MD Activ e CRESTOR 10 MG TABS 1 by mouth every day R OSUVASTATIN CALCIUM 21643217013 No Longer Active Baltazar Childers MD Activ e PHENTERMINE HCL 37.5 MG TABS Take one by mouth daily 2 PHENTERMINE HCL 22662109866 No Longer Active Baltazar Childers MD Activ e ROBAXIN-750 750 MG TABS Take one by mouth daily ME THOCARBAMOL 27308796220 Active Baltazar Childers MD Active TIZANIDINE HCL 4 MG TABS 1 daily as needed for muscle spasm 2011 TIZANIDINE HCL 51243354250 No Longer Active Dawna Salazar RN Active ONETOUCH ULTRA BLUE STRP Test twice a day GLUCO SE BLOOD 18224368443 Active Baltazar Childers MD Active [id number] 50-325-40 MG TABS 1 four time s a day as needed for heacache [id number] 36786865703 Active Baltazar Childers MD Active SUMATRIPTAN SUCCINATE 100 MG TABS 1 tablet by mouth at onset of migraine as needed SUMATRIPTAN SUCCINATE 02007955359 Active Shireen Miller APRN Active LORATADINE 10 MG TABS Take one by mouth daily LORATADINE 97836991525 Active Brad Hughes Active FUROSEMIDE 40 MG TABS Take one by mouth daily FUROSEMIDE 53591477888 Active Shireen Miller APRN Active LISINOPRIL 20 MG TABS Take one by mouth daily at bedtime LISINOPRIL 81384954682 Active Shireen Miller APRN Active OMEPRAZOLE 20 MG CPDR Take one by mouth daily OMEPRAZOLE 69043168236 Active Shireen Mliler APRN Active HYDROXYZINE HCL 25 MG TABS Take one by mouth daily HYDROXYZINE HCL 86390035485 Active Shireen Miller APRN Active GLIPIZIDE 10 MG TABS 1 tablet by mouth twice daily GLIPIZIDE 06510174656 Active Shireen Miller APRN Active ALPRAZOLAM 1 MG TABS 1 tablet by mouth daily at bedtime for restles s leg ALPRAZOLAM 71594405314 Active Baltazar Childers MD Active METFORMIN HCL 1000 MG TABS Take one by mouth twice daily METFORMIN HCL 29714393326 Active Shireen Miller APRN Active TIZANIDINE HCL 4 MG TABS 1 daily as needed for muscle spasm 2011 TIZANIDINE HCL 4 MG TABS 422821 TIZANIDINE HCL Inactiv e PHENTERMINE HCL 37.5 MG TABS Take one by mouth daily 2 PHENTERMINE HCL 37.5 MG TABS 609433 PHENTERMINE HCL Inactive CRESTOR 10 MG TABS 1 by mouth every day C RESTOR 10 MG TABS ROSUVASTATIN CALCIUM Inactive LIPITOR 20 MG TABS Take one by mouth daily in evening LIPITOR 20 MG TABS 855653 ATORVASTATIN CALCIUM Inactive DEPO-TESTOSTERONE 200 MG/ML OIL as directed 8 DEPO-TESTOSTERONE 200 MG/ML OIL 649917 TESTOSTERONE CYPIONATE Inactive NAPROXEN 500 MG TABS 1 tablet by mouth twice daily 201 07/27/22 NAPROXEN 500 MG TABS 332397 NAPROXEN Inactive GABAPENTIN 300 MG CAPS 1 po qd x 2 days, then 1 po BID x 2 d ays, then 1 po TID GABAPENTIN 300 MG CAPS 777365 GABAPENTIN Inact amie Immunizations Vaccine Administration Date Value Standard Floyd cription pneumococcal immunization administered Pneumovax 23 [CVX33] pneumococcal polysaccharide vaccine, 23 valent Seasonal influenza vaccine, injectable, containing preservative, for > 3 years old (Afluria, FluLaval, Fluzone, Fluvirin, Fluarix, Agriflu(>= 18 yo)) Fluzone (>3 yrs.) [[id number]] Influenza, seasonal, inject able Seasonal influenza vaccine, injectable, containing preservative, for > 3 years old (Afluria, FluLaval, Fluzone, Fluvirin, Fluarix, Agriflu(>= 18 yo)) Fluzone (>3 yrs.) [[id number]] Influenza, seasonal, inject able Vital Signs Date [...] mg/dL Chart Maintenance: Outside labs entered on [employer] - Hematology hemoglobin, blood 10.9 g/dL hematocrit, blood 33.7 % mean corpuscular volume, RBC 96 fL mean corpuscular hemoglobin, RBC 31.1 pg red blood cell distribution width 14.0 % Lab Report: Basic Metabolic Panel, HGBA1 C - Chemistry sodium, serum 140 mmol/L 039-740 3657/02/26 potassium, serum 5.3 mmol/L 3.5-5.2 chloride, serum 101 mmol/L 98-107 carbon dioxide, venous blood 36.9 mmol/L 21.0-32 .0 blood glucose 151 mg/dL 65-110 calcium, serum 8.7 mg/dL 8.5-10.1 urea nitrogen, blood 19 mg/dL 7-18 creatinine, serum 1.60 mg/dL 0.60-1.30 hemoglobin A1C, blood, as % of total hemoglobin 7.9 % 4.3-6.0 Lab Report: CBC, Basic Metabolic Panel, HGBA1C - Chemistry sodium, serum 138 mmol/L 480-006 7876/05/23 potassium, serum 4.9 mmol/L 3.5-5.2 chloride, serum [...] 0.39 mg/dL 0.00-1.00 cholesterol, serum 345 mg/dL 618-733 3861/08/26 triglyceride, serum, fasting 635 mg/dL 30-200 HDL [...] Panel - Chemistry sodium, serum 136 mmol/L 995-303 0102/01/06 potassium, serum 5.1 mmol/L 3.5-5.2 chloride, serum [...] Panel - Chemistry sodium, serum 139 mmol/L 188-398 5044/08/26 potassium, serum 5.8 mmol/L 3.5-5.2 chloride, serum 98 mmol/L 98-107 carbon dioxide, venous blood 33.0 mmol/L 21.0-32 .0 blood glucose 107 mg/dL 65-110 urea nitrogen, blood 26 mg/dL 7-18 creatinine, serum 1.80 mg/dL 0.60-1.30 calcium, serum 9.3 mg/dL 8.5-10.1 sodium, serum 138 mmol/L 637-413 0865/06/17 potassium, serum 4.9 mmol/L 3.5-5.2 chloride, serum [...] mg/dL Encounters Code Encounter Date Provider Facility CPT-14012 Level 4 Est. Patient 14:52:45 [employer] Baltazar Childers MD [facility] CPT-99251 Level 4 Est. Patient 14:18:34 [employer] Baltazar Childers MD [facility] CPT-08411 Level 4 Est. Patient 15:18:29 CDT Baltazar Childers MD [facility] CPT-19322 Level 3 Est. Patient 12:45:34 CDT Baltazar Childers MD [facility] CPT-32115 Level 3 Est. Patient 10:10:11 CDT Baltazar Childers MD [facility] CPT-77766 Level 3 Est. Patient 14:07:50 CDT Baltazar Childers MD [facility] CPT-46210 Level 4 Est. Patient 12:26:10 [employer] Baltazar Childers MD [facility] CPT-61563 Level 4 Est. Patient 14:45:38 CDT Baltazar Childers MD [facility] CPT-09559 Level 4 New Patient 12:30:48 CDT Baltazar hinton MD [facility] Procedures Code Procedure Name Date Entry Date Standard Desc ription CPT-30161 First Vx Component - Ix admi n via ID IM or jet inj without physician counseling 15:17:19 [employer] CPT-96705 Pneumovax 15:17:19 [employer] CPT-22703 Pneumovax 14:52:45 [employer] CPT-38927 Venipuncture Draw Fee 14:06:30 [employer] CPT-000 Give Appropriate Flu Vaccine 14:18:34 [employer] 2 CPT-44545 Administration single or combination vac cine inc oral 14:46:00 [employer] CPT-19075 Influenza split virus > age 3 14:46:00 [employer] CPT-OV Office Visit 19:13:16 CDT CPT-28467 Zostavax 18:41:56 CDT CPT-95688 Administration single or combination vac cine inc oral 12:56:39 CDT CPT-70302 Zoster Vaccine (Zostavax) 12:56:39 CDT 2012 CPT-53528 Venipuncture Draw Fee 10:58:57 CDT CPT-23523 Sono pelvis non OB uterus ovaries cervix 17:45:04 CDT CPT-80550 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
--- OUTSIDE RECORDS SUMMARY | 2019-10-27 13:47 | XMS REPORT | Clinical Summary ---
[...] libido COLON POLYPS 211.3 Resolved Lolis Thomas SAILOR Benign neoplasm of colon PERIPHERAL NEUROPATHY 356.9 [...] y atherosclerosis of unspecified type of vessel, [place] or graft OTH NONSPC ABN FINDNG [...] tab every 6-8 hour s PRN HYDROCODONE-ACETAMINOPHEN 90026279194 Active Baltazar Childers MD Active NORTRIPTYLINE HCL 50 MG CAPS 1 every night for neuropathy 4 NORTRIPTYLINE HCL 46748938353 Active Baltazar Childers MD Acti ve GABAPENTIN 300 MG CAPS 1 three times a day GABAPE NTIN 14707871805 Active Baltazar Childers MD Active GABAPENTIN 300 MG CAPS 1 po qd x 2 days, then 1 po BID x 2 d ays, then 1 po TID GABAPENTIN 28609735711 No Longer Active Baltazar silverman MD Active TRAMADOL HCL 50 MG TABS 1 twice a day as needed for pain TRAMADOL HCL 70341056363 Active Baltazar Childers MD Active NAPROXEN 500 MG TABS 1 tablet by mouth twice daily NAPROXEN 96748095035 No Longer Active Baltazar Childers MD Active PROAIR HFA 108 (90 BASE) MCG/ACT AERS 2 puffs four times a d ay as needed ALBUTEROL SULFATE 20592570960 Active Baltazar Childers MD Active DEPO-TESTOSTERONE 200 MG/ML OIL as directed RUFINO TOSTERONE CYPIONATE 68115128434 No Longer Active Baltazar Childers MD Active LIPITOR 20 MG TABS Take one by mouth daily in evening ATORVASTATIN CALCIUM 43535828896 No Longer Active Baltazar Childers MD Activ e CRESTOR 10 MG TABS 1 by mouth every day R OSUVASTATIN CALCIUM 51298875592 No Longer Active Baltazar Childers MD Activ e PHENTERMINE HCL 37.5 MG TABS Take one by mouth daily 2 PHENTERMINE HCL 84713770987 No Longer Active Baltazar Childers MD Activ e ROBAXIN-750 750 MG TABS Take one by mouth daily ME THOCARBAMOL 09734442498 Active Baltazar Childers MD Active TIZANIDINE HCL 4 MG TABS 1 daily as needed for muscle spasm 2011 TIZANIDINE HCL 38720815874 No Longer Active Dawna Salazar RN Active ONETOUCH ULTRA BLUE STRP Test twice a day GLUCO SE BLOOD 13072178751 Active Baltazar Childers MD Active [id number] 50-325-40 MG TABS 1 four time s a day as needed for heacache [id number] 96965858149 Active Baltazar Childers MD Active SUMATRIPTAN SUCCINATE 100 MG TABS 1 tablet by mouth at onset of migraine as needed SUMATRIPTAN SUCCINATE 50448973838 Active Baltazar bynum MD Active LORATADINE 10 MG TABS Take one by mouth daily LORATADINE 75533394936 Active Baltazar Childers MD Active FUROSEMIDE 40 MG TABS Take one by mouth daily FUROSEMIDE 06467820984 Active Baltazar Childers MD Active LISINOPRIL 20 MG TABS Take one by mouth daily at bedtime LISINOPRIL 55334199639 Active Baltazar Childers MD Active OMEPRAZOLE 20 MG CPDR Take one by mouth daily OMEPRAZOLE 48958404661 Active Baltazar Childers MD Active HYDROXYZINE HCL 25 MG TABS Take one by mouth daily HYDROXYZINE HCL 78222399199 Active Baltazar Childers MD Active GLIPIZIDE 10 MG TABS 1 tablet by mouth twice daily GLIPIZIDE 42903641740 Active Baltazar Childers MD Active ALPRAZOLAM 1 MG TABS 1 tablet by mouth daily at bedtime for restles s leg ALPRAZOLAM 93934126928 Active Baltazar Childers MD Active METFORMIN HCL 1000 MG TABS Take one by mouth twice daily METFORMIN HCL 65731014261 Active Baltazar Childers MD Active TIZANIDINE HCL 4 MG TABS 1 daily as needed for muscle spasm 2011 TIZANIDINE HCL 4 MG TABS 723696 TIZANIDINE HCL Inactiv e PHENTERMINE HCL 37.5 MG TABS Take one by mouth daily 2 PHENTERMINE HCL 37.5 MG TABS 221763 PHENTERMINE HCL Inactive CRESTOR 10 MG TABS 1 by mouth every day C RESTOR 10 MG TABS ROSUVASTATIN CALCIUM Inactive LIPITOR 20 MG TABS Take one by mouth daily in evening LIPITOR 20 MG TABS 501332 ATORVASTATIN CALCIUM Inactive DEPO-TESTOSTERONE 200 MG/ML OIL as directed 8 DEPO-TESTOSTERONE 200 MG/ML OIL 477191 TESTOSTERONE CYPIONATE Inactive NAPROXEN 500 MG TABS 1 tablet by mouth twice daily 201 07/27/22 NAPROXEN 500 MG TABS 276365 NAPROXEN Inactive GABAPENTIN 300 MG CAPS 1 po qd x 2 days, then 1 po BID x 2 d ays, then 1 po TID GABAPENTIN 300 MG CAPS 128628 GABAPENTIN Inact amie Immunizations Vaccine Administration Date Value Standard Floyd cription pneumococcal immunization administered Pneumovax 23 [CVX33] pneumococcal polysaccharide vaccine, 23 valent Seasonal influenza vaccine, injectable, containing preservative, for > 3 years old (Afluria, FluLaval, Fluzone, Fluvirin, Fluarix, Agriflu(>= 18 yo)) Fluzone (>3 yrs.) [[id number]] Influenza, seasonal, inject able Seasonal influenza vaccine, injectable, containing preservative, for > 3 years old (Afluria, FluLaval, Fluzone, Fluvirin, Fluarix, Agriflu(>= 18 yo)) Fluzone (>3 yrs.) [[id number]] Influenza, seasonal, inject able Vital Signs Date [...] C - Chemistry sodium, serum 140 mmol/L 997-645 2031/02/26 potassium, serum 5.3 mmol/L 3.5-5.2 chloride, serum [...] 0.39 mg/dL 0.00-1.00 cholesterol, serum 345 mg/dL 701-217 7271/08/26 triglyceride, serum, fasting 635 mg/dL 30-200 HDL [...] Panel - Chemistry sodium, serum 136 mmol/L 217-637 9335/01/06 potassium, serum 5.1 mmol/L 3.5-5.2 chloride, serum [...] mg/g mg/g{creat} 0-29 cholesterol, serum 319 mg/dL 153-160 0576/08/21 triglyceride, serum, fasting 546 mg/dL 30-200 HDL cholesterol, serum 39 mg/dL 32-96 LDL cholesterol, serum 167.00 mg/dL 5.00-130.00 hemoglobin A1C, blood, as % of total hemoglobin 7.7 % 4.3-6.0 sodium, serum 138 mmol/L 775-961 8663/08/21 potassium, serum 4.3 mmol/L 3.5-5.2 chloride, serum [...] Panel - Chemistry sodium, serum 139 mmol/L 781-666 2152/08/26 potassium, serum 5.8 mmol/L 3.5-5.2 chloride, serum [...] mg/dL Encounters Code Encounter Date Provider Facility CPT-29317 Level 4 Est. Patient 12:20:13 CDT Baltazar Childers MD [facility] CPT-48401 Level 4 Est. Patient 14:52:45 CHIEF RELAY TESTER Baltazar Childers MD [facility] CPT-15561 Level 4 Est. Patient 14:18:34 CHIEF RELAY TESTER Baltazar Childers MD [facility] CPT-45629 Level 4 Est. Patient 15:18:29 CDT Baltazar Childers MD [facility] CPT-63700 Level 3 Est. Patient 12:45:34 CDT Baltazar Childers MD [facility] CPT-87800 Level 3 Est. Patient 10:10:11 CDT Baltazar Childers MD [facility] CPT-50355 Level 3 Est. Patient 14:07:50 CDT Baltazar Childers MD [facility] CPT-62328 Level 4 Est. Patient 12:26:10 CHIEF RELAY TESTER Baltazar Childers MD [facility] CPT-95363 Level 4 Est. Patient 14:45:38 CDT Baltazar Childers MD [facility] CPT-07648 Level 4 New Patient 12:30:48 CDT Baltazar hinton MD [facility] Procedures Code Procedure Name Date Entry Date Standard Desc ription CPT-83456 First Vx Component - Ix admi n via ID IM or jet inj without physician counseling 15:17:19 CHIEF RELAY TESTER CPT-76288 Pneumovax 15:17:19 CHIEF RELAY TESTER CPT-11896 Pneumovax 14:52:45 CHIEF RELAY TESTER CPT-64215 Venipuncture Draw Fee 14:06:30 CHIEF RELAY TESTER CPT-000 Give Appropriate Flu Vaccine 14:18:34 CHIEF RELAY TESTER 2 CPT-57555 Administration single or combination vac cine inc oral 14:46:00 CHIEF RELAY TESTER CPT-63646 Influenza split virus > age 3 14:46:00 CHIEF RELAY TESTER CPT-OV Office Visit 19:13:16 CDT CPT-39217 Zostavax 18:41:56 CDT CPT-19710 Administration single or combination vac cine inc oral 12:56:39 CDT CPT-54175 Zoster Vaccine (Zostavax) 12:56:39 CDT 2012 CPT-41928 Venipuncture Draw Fee 10:58:57 CDT CPT-92713 Sono pelvis non OB uterus ovaries cervix 17:45:04 CDT CPT-12560 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
--- OUTSIDE RECORDS SUMMARY | 2019-10-27 13:47 | XMS REPORT | Clinical Summary ---
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 Thomas [employer] Benign neoplasm of colon PERIPHERAL NEUROPATHY 356.9 [...] MISC Test twice a day LANCET S 60742218480 Active Baltazar Childers MD Active TRUEDRAW LANCING DEVICE MISC Test twice a day L ANCET DEVICES 33959114103 Active Baltazar Childers MD Active TRUETRACK TEST STRP Test twice a day GLUCOSE BLOO D 85784659195 Active Baltazar Childers MD Active TRUETRACK BLOOD GLUCOSE W/DEVICE KIT Test twice a day BLOOD GLUCOSE MONITORING SUPPL 14009801768 Active Bella Suarez [employer] Active HYDROCODONE-ACETAMINOPHEN 7.5-325 MG TABS Take 1 tab every 6-8 hour s PRN HYDROCODONE-ACETAMINOPHEN 25191360047 Active Baltazar Childers MD Active NORTRIPTYLINE HCL 50 MG CAPS 1 every night for neuropathy 4 NORTRIPTYLINE HCL 14773123370 Active Baltazar Childers MD Acti ve GABAPENTIN 300 MG CAPS 1 three times a day GABAPE NTIN 74424224890 Active Baltazar Childers MD Active GABAPENTIN 300 MG CAPS 1 po qd x 2 days, then 1 po BID x 2 d ays, then 1 po TID GABAPENTIN 77108006819 No Longer Active Baltazar silverman MD Active TRAMADOL HCL 50 MG TABS 1 twice a day as needed for pain TRAMADOL HCL 91894159337 Active Baltazar Childers MD Active NAPROXEN 500 MG TABS 1 tablet by mouth twice daily NAPROXEN 43244070179 No Longer Active Baltazar Childers MD Active PROAIR HFA 108 (90 BASE) MCG/ACT AERS 2 puffs four times a d ay as needed ALBUTEROL SULFATE 93178730732 Active Baltazar Childers MD Active DEPO-TESTOSTERONE 200 MG/ML OIL as directed RUFINO TOSTERONE CYPIONATE 28563813063 No Longer Active Baltazar Childers MD Active LIPITOR 20 MG TABS Take one by mouth daily in evening ATORVASTATIN CALCIUM 10217670083 No Longer Active Baltazar Childers MD Activ e CRESTOR 10 MG TABS 1 by mouth every day R OSUVASTATIN CALCIUM 83135427935 No Longer Active Baltazar Childers MD Activ e PHENTERMINE HCL 37.5 MG TABS Take one by mouth daily 2 PHENTERMINE HCL 67023121978 No Longer Active Baltazar Childers MD Activ e ROBAXIN-750 750 MG TABS Take one by mouth daily ME THOCARBAMOL 99458130086 Active Baltazar Childers MD Active TIZANIDINE HCL 4 MG TABS 1 daily as needed for muscle spasm 2011 TIZANIDINE HCL 86095329700 No Longer Active Dawna Salazar RN Active WorkProductsUCH ULTRA BLUE STRP Test twice a day GLUCO SE BLOOD 68043934669 Active Baltazar Childers MD Active REVQQVASYY-MELL-AFILUNUA 50-325-40 MG TABS 1 four time s a day as needed for heacache [id number] 39095482029 Active Bella Suarez APRN Active SUMATRIPTAN SUCCINATE 100 MG TABS 1 tablet by mouth at onset of migraine as needed SUMATRIPTAN SUCCINATE 88387199416 Active Baltazar barron MD Active LORATADINE 10 MG TABS Take one by mouth daily LORATADINE 96681324063 Active Baltazar Childers MD Active FUROSEMIDE 40 MG TABS Take one by mouth daily FUROSEMIDE 44560708716 Active Baltazar Childers MD Active LISINOPRIL 20 MG TABS Take one by mouth daily at bedtime LISINOPRIL 61690698952 Active Baltazar Childers MD Active OMEPRAZOLE 20 MG CPDR Take one by mouth daily OMEPRAZOLE 47316132075 Active Baltazar Childers MD Active HYDROXYZINE HCL 25 MG TABS Take one by mouth daily HYDROXYZINE HCL 44314302974 Active Baltazar Childers MD Active GLIPIZIDE 10 MG TABS 1 tablet by mouth twice daily GLIPIZIDE 66295655779 Active Baltazar Childers MD Active ALPRAZOLAM 1 MG TABS 1 tablet by mouth daily at bedtime for restles s leg ALPRAZOLAM 97622951253 Active Baltazar Childers MD Active METFORMIN HCL 1000 MG TABS Take one by mouth twice daily METFORMIN HCL 80893920614 Active Baltazar Childers MD Active TIZANIDINE HCL 4 MG TABS 1 daily as needed for muscle spasm 2011 TIZANIDINE HCL 4 MG TABS 522951 TIZANIDINE HCL Inactiv e PHENTERMINE HCL 37.5 MG TABS Take one by mouth daily 2 PHENTERMINE HCL 37.5 MG TABS 361001 PHENTERMINE HCL Inactive CRESTOR 10 MG TABS 1 by mouth every day C RESTOR 10 MG TABS ROSUVASTATIN CALCIUM Inactive LIPITOR 20 MG TABS Take one by mouth daily in evening LIPITOR 20 MG TABS 024481 ATORVASTATIN CALCIUM Inactive DEPO-TESTOSTERONE 200 MG/ML OIL as directed 8 DEPO-TESTOSTERONE 200 MG/ML OIL 887493 TESTOSTERONE CYPIONATE Inactive NAPROXEN 500 MG TABS 1 tablet by mouth twice daily 201 07/27/22 NAPROXEN 500 MG TABS 506955 NAPROXEN Inactive GABAPENTIN 300 MG CAPS 1 po qd x 2 days, then 1 po BID x 2 d ays, then 1 po TID GABAPENTIN 300 MG CAPS 815148 GABAPENTIN Inact amie Immunizations Vaccine Administration Date Value Standard Floyd cription pneumococcal immunization administered Pneumovax 23 [CVX33] pneumococcal polysaccharide vaccine, 23 valent Seasonal influenza vaccine, injectable, containing preservative, for > 3 years old (Afluria, FluLaval, Fluzone, Fluvirin, Fluarix, Agriflu(>= 18 yo)) Fluzone (>3 yrs.) [[id number]] Influenza, seasonal, inject able Seasonal influenza vaccine, injectable, containing preservative, for > 3 years old (Afluria, FluLaval, Fluzone, Fluvirin, Fluarix, Agriflu(>= 18 yo)) Fluzone (>3 yrs.) [[id number]] Influenza, seasonal, inject able Vital Signs Date [...] C - Chemistry sodium, serum 140 mmol/L 282-167 7016/02/26 urea nitrogen, blood 19 mg/dL 7-18 creatinine, serum 1.60 mg/dL 0.60-1.30 hemoglobin A1C, blood, as % of total hemoglobin 7.9 % 4.3-6.0 potassium, serum 5.3 mmol/L 3.5-5.2 chloride, serum 101 mmol/L 98-107 carbon dioxide, venous blood 36.9 mmol/L 21.0-32 .0 blood glucose 151 mg/dL 65-110 calcium, serum 8.7 mg/dL 8.5-10.1 Lab Report: CBC - Hematology [...] Panel - Chemistry sodium, serum 136 mmol/L 731-669 1929/01/06 potassium, serum 5.1 mmol/L 3.5-5.2 chloride, serum 95 mmol/L 98-107 carbon dioxide, venous blood 28.8 mmol/L 21.0-32 .0 blood glucose 240 mg/dL 65-110 urea nitrogen, blood 30 mg/dL 7-18 creatinine, serum 1.80 mg/dL 0.60-1.30 calcium, serum 10.3 mg/dL 8.5-10.1 Lab Report: CBC, Renal Panel - Hematolog y mean corpuscular volume, RBC 97 fL 80-97 hematocrit, blood 40.2 % 36.0-46.0 hemoglobin, blood 13.1 g/dL 12.0-16.0 erythrocyte (RBC) count 4.14 10^6/MM^3 10*6/mm3 4.04-5.4 8 leukocyte count, blood 7.5 10^3/MM^3 10*3/mm3 4.6-10.2 platelet count 346 10^3/MM^3 10*3/mm3 028-908 0420/01/06 red blood cell distribution width 14.5 % 11 .6-14.8 mean corpuscular hemoglobin concentration, RBC 32.6 G/DL % 31.8-35.4 mean corpuscular hemoglobin, RBC 31.6 pg 27. 0-31.2 Lab Report: MICROALBUMIN, Lipid Panel, H GBA1C, Comp. Metabolic Panel - Chemistry albumin/creatinine ratio, urine 30 - 300 mg/g mg/g{creat} 0-29 cholesterol, serum 319 mg/dL 375-403 5051/08/21 triglyceride, serum, fasting 546 mg/dL 30-200 HDL cholesterol, serum 39 mg/dL 32-96 LDL cholesterol, serum 167.00 mg/dL 5.00-130.00 hemoglobin A1C, blood, as % of total hemoglobin 7.7 % 4.3-6.0 sodium, serum 138 mmol/L 660-990 2714/08/21 potassium, serum 4.3 mmol/L 3.5-5.2 chloride, serum [...] mg/dL Encounters Code Encounter Date Provider Facility CPT-79276 Level 4 Est. Patient 14:15:19 CDT Baltazar Childers MD [facility] CPT-11023 Level 4 Est. Patient 12:20:13 CDT Baltazar Childers MD [facility] CPT-92244 Level 4 Est. Patient 14:52:45 DICE TABLE PERSON Baltazar Childers MD [facility] CPT-72355 Level 4 Est. Patient 14:18:34 DICE TABLE PERSON Baltazar Childers MD [facility] CPT-66125 Level 4 Est. Patient 15:18:29 CDT Baltazar Childers MD [facility] CPT-46476 Level 3 Est. Patient 12:45:34 CDT Baltazar Childers MD [facility] CPT-49700 Level 3 Est. Patient 10:10:11 CDT Baltazar Childers MD [facility] CPT-93063 Level 3 Est. Patient 14:07:50 CDT Baltazar Childers MD [facility] CPT-44460 Level 4 Est. Patient 12:26:10 DICE TABLE PERSON Baltazar Childers MD [facility] CPT-70354 Level 4 Est. Patient 14:45:38 CDT Baltazar Childers MD [facility] CPT-62619 Level 4 New Patient 12:30:48 CDT Baltazar hinton MD [facility] Procedures Code Procedure Name Date Entry Date Standard Desc ription CPT-20216 Fluzone Quadrivalent Intramuscular Suspe nsion 0.5 ML 10:49:13 CDT CPT-88225 First Vx Component - Ix admi n via ID IM or jet inj without physician counseling 15:17:19 DICE TABLE PERSON CPT-74532 Pneumovax 15:17:19 DICE TABLE PERSON CPT-42271 Pneumovax 14:52:45 DICE TABLE PERSON CPT-26737 Venipuncture Draw Fee 14:06:30 DICE TABLE PERSON CPT-000 Give Appropriate Flu Vaccine 14:18:34 DICE TABLE PERSON 2 CPT-89346 Administration single or combination vac cine inc oral 14:46:00 DICE TABLE PERSON CPT-52846 Influenza split virus > age 3 14:46:00 DICE TABLE PERSON CPT-OV Office Visit 19:13:16 CDT CPT-76437 Zostavax 18:41:56 CDT CPT-98677 Administration single or combination vac cine inc oral 12:56:39 CDT CPT-98100 Zoster Vaccine (Zostavax) 12:56:39 CDT 2012 CPT-55028 Venipuncture Draw Fee 10:58:57 CDT CPT-43456 Sono pelvis non OB uterus ovaries cervix 17:45:04 CDT CPT-51558 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
--- OUTSIDE RECORDS SUMMARY | 2019-10-27 13:48 | XMS REPORT | Clinical Summary ---
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 Benign neoplasm of colon PERIPHERAL NEUROPATHY [...] y atherosclerosis of unspecified type of vessel, eek [...] MISC Test twice a day LANCET S 84296628002 Active Baltazar Childers MD Active TRUEDRAW LANCING DEVICE MISC Test twice a day L ANCET DEVICES 33625629289 Active Baltazar Childers MD Active TRUETRACK TEST STRP Test twice a day GLUCOSE BLOO D 26671801309 Active Baltazar Childers MD Active TRUETRACK BLOOD GLUCOSE W/DEVICE KIT Test twice a day BLOOD GLUCOSE MONITORING SUPPL 82516727307 Active Bella Suarez FACILITIES PLANT ENGINEER Active HYDROCODONE-ACETAMINOPHEN 7.5-325 MG TABS Take 1 tab every 6-8 hour s PRN HYDROCODONE-ACETAMINOPHEN 45532031106 Active Baltazar Childers MD Active NORTRIPTYLINE HCL 50 MG CAPS 1 every night for neuropathy 4 NORTRIPTYLINE HCL 65485963339 Active Baltazar Childers MD Acti ve GABAPENTIN 300 MG CAPS 1 three times a day GABAPE NTIN 70647985673 Active Baltazar Childers MD Active GABAPENTIN 300 MG CAPS 1 po qd x 2 days, then 1 po BID x 2 d ays, then 1 po TID GABAPENTIN 92286316701 No Longer Active Baltazar silverman MD Active TRAMADOL HCL 50 MG TABS 1 twice a day as needed for pain TRAMADOL HCL 75490040343 Active Baltazar Childers MD Active NAPROXEN 500 MG TABS 1 tablet by mouth twice daily NAPROXEN 77955779080 No Longer Active Baltazar Childers MD Active PROAIR HFA 108 (90 BASE) MCG/ACT AERS 2 puffs four times a d ay as needed ALBUTEROL SULFATE 61953024668 Active Baltazar Childers MD Active DEPO-TESTOSTERONE 200 MG/ML OIL as directed RUFINO TOSTERONE CYPIONATE 99555915292 No Longer Active Baltazar Childers MD Active LIPITOR 20 MG TABS Take one by mouth daily in evening ATORVASTATIN CALCIUM 49239269477 No Longer Active Baltazar Childers MD Activ e CRESTOR 10 MG TABS 1 by mouth every day R OSUVASTATIN CALCIUM 30641168981 No Longer Active Baltazar Childers MD Activ e PHENTERMINE HCL 37.5 MG TABS Take one by mouth daily 2 PHENTERMINE HCL 73348142115 No Longer Active Baltazar Childers MD Activ e ROBAXIN-750 750 MG TABS Take one by mouth daily ME THOCARBAMOL 38634216685 Active Baltazar Childers MD Active TIZANIDINE HCL 4 MG TABS 1 daily as needed for muscle spasm 2011 TIZANIDINE HCL 60879760177 No Longer Active Dawna Salazar RN Active [employer] ULTRA BLUE STRP Test twice a day GLUCO SE BLOOD 09086178859 Active Baltazar Childers MD Active [id number]-[id number] 50-325-40 MG TABS 1 four time s a day as needed for heacache [id number] 25394052731 Active Baltazar Childers MD Active SUMATRIPTAN SUCCINATE 100 MG TABS 1 tablet by mouth at onset of migraine as needed SUMATRIPTAN SUCCINATE 03051671536 Active Baltazar barron MD Active LORATADINE 10 MG TABS Take one by mouth daily LORATADINE 63017379472 Active Baltazar Childers MD Active FUROSEMIDE 40 MG TABS Take one by mouth daily FUROSEMIDE 94542443710 Active Baltazar Childers MD Active LISINOPRIL 20 MG TABS Take one by mouth daily at bedtime LISINOPRIL 11996844950 Active Baltazar Childers MD Active OMEPRAZOLE 20 MG CPDR Take one by mouth daily OMEPRAZOLE 38675464409 Active Baltazar Childers MD Active HYDROXYZINE HCL 25 MG TABS Take one by mouth daily HYDROXYZINE HCL 21909217115 Active Baltazar Childers MD Active GLIPIZIDE 10 MG TABS 1 tablet by mouth twice daily GLIPIZIDE 37929678353 Active Baltazar Childers MD Active ALPRAZOLAM 1 MG TABS 1 tablet by mouth daily at bedtime for restles s leg ALPRAZOLAM 53319577149 Active Baltazar Childers MD Active METFORMIN HCL 1000 MG TABS Take one by mouth twice daily METFORMIN HCL 33473802595 Active Baltazar Childers MD Active TIZANIDINE HCL 4 MG TABS 1 daily as needed for muscle spasm 2011 TIZANIDINE HCL 4 MG TABS 218940 TIZANIDINE HCL Inactiv e PHENTERMINE HCL 37.5 MG TABS Take one by mouth daily 2 PHENTERMINE HCL 37.5 MG TABS 514265 PHENTERMINE HCL Inactive CRESTOR 10 MG TABS 1 by mouth every day C RESTOR 10 MG TABS ROSUVASTATIN CALCIUM Inactive LIPITOR 20 MG TABS Take one by mouth daily in evening LIPITOR 20 MG TABS 131623 ATORVASTATIN CALCIUM Inactive DEPO-TESTOSTERONE 200 MG/ML OIL as directed 8 DEPO-TESTOSTERONE 200 MG/ML OIL 274614 TESTOSTERONE CYPIONATE Inactive NAPROXEN 500 MG TABS 1 tablet by mouth twice daily 201 07/27/22 NAPROXEN 500 MG TABS 688469 NAPROXEN Inactive GABAPENTIN 300 MG CAPS 1 po qd x 2 days, then 1 po BID x 2 d ays, then 1 po TID GABAPENTIN 300 MG CAPS 294417 GABAPENTIN Inact amie Immunizations Vaccine Administration Date Value Standard Floyd cription pneumococcal immunization administered Pneumovax 23 [CVX33] pneumococcal polysaccharide vaccine, 23 valent Seasonal influenza vaccine, injectable, containing preservative, for > 3 years old (Afluria, FluLaval, Fluzone, Fluvirin, Fluarix, Agriflu(>= 18 yo)) Fluzone (>3 yrs.) [[id number]] Influenza, seasonal, inject able Seasonal influenza vaccine, injectable, containing preservative, for > 3 years old (Afluria, FluLaval, Fluzone, Fluvirin, Fluarix, Agriflu(>= 18 yo)) Fluzone (>3 yrs.) [[id number]] Influenza, seasonal, inject able Vital Signs Date [...] pressure, diastolic - 8462-4 76 mm[Hg] BP samleron blood pressure, systolic - 8480-6 134 mm[Hg] [...] Panel - Chemistry sodium, serum 139 mmol/L 137-154 3867/01/20 potassium, serum 5.3 mmol/L 3.5-5.2 chloride, serum [...] mg/g mg/g{creat} 0-29 cholesterol, serum 319 mg/dL 960-317 0341/08/21 triglyceride, serum, fasting 546 mg/dL 30-200 HDL cholesterol, serum 39 mg/dL 32-96 LDL cholesterol, serum 167.00 mg/dL 5.00-130.00 hemoglobin A1C, blood, as % of total hemoglobin 7.7 % 4.3-6.0 sodium, serum 138 mmol/L 801-210 8678/08/21 potassium, serum 4.3 mmol/L 3.5-5.2 chloride, serum [...] 0-19 Encounters Code Encounter Date Provider Facility CPT-30212 Level 4 Est. Patient 14:15:19 CDT Baltazar Childers MD [facility] CPT-44575 Level 4 Est. Patient 12:20:13 CDT Baltazar Childers MD [facility] CPT-62038 Level 4 Est. 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 Patient 14:18:34 PRE [employer]ERGARTEN TEACHER Baltazar Childers MD [facility] CPT-93276 Level 4 Est. Patient 15:18:29 CDT Baltazar Childers MD [facility] CPT-78305 Level 3 Est. Patient 12:45:34 CDT Baltazar Childers MD [facility] CPT-59977 Level 3 Est. Patient 10:10:11 CDT Baltazar Childers MD [facility] CPT-71211 Level 3 Est. Patient 14:07:50 CDT Baltazar Childers MD [facility] CPT-36601 Level 4 Est. Patient 12:26:10 PRE [employer]ERGART[employer] TEACHER Baltazar Childers MD [facility] CPT-83938 Level 4 Est. Patient 14:45:38 CDT Baltazar Childers MD [facility] CPT-20516 Level 4 New Patient 12:30:48 CDT Baltazar hinton MD [facility] Procedures Code Procedure Name Date Entry Date Standard Desc ription CPT-38657 Venipuncture Draw Fee 12:10:27 PRE [employer]ERGART[employer] TEACHER CPT-43246 Fluzone Quadrivalent Intramuscular Suspe nsion 0.5 ML 10:49:13 CDT CPT-89760 First Vx Component - Ix admi n via ID IM or jet inj without physician counseling 15:17:19 PRE [employer]ER[employer] TEACHER CPT-97954 Pneumovax 23 15:17:19 PRE [employer]ERG[employer] TEACHER CPT-81314 Pneumovax 14:52:45 PRE [employer]ERG[employer] TEACHER CPT-02954 Venipuncture Draw Fee 14:06:30 PRE [employer]ERG[employer] TEACHER CPT-000 Give Appropriate Flu Vaccine 14:18:34 PRE KINDERGARTEN TEACHER 2 CPT-42611 Administration single or combination vac cine inc oral 14:46:00 PRE [employer]ERG[employer] TEACHER CPT-55196 Influenza split virus > age 3 14:46:00 PRE [employer]ERG[employer] TEACHER CPT-OV Office Visit 19:13:16 CDT CPT-70063 Zostavax 18:41:56 CDT CPT-60398 Administration single or combination vac cine inc oral 12:56:39 CDT CPT-58337 Zoster Vaccine (Zostavax) 12:56:39 CDT 2012 CPT-59758 Venipuncture Draw Fee 10:58:57 CDT CPT-18044 Sono pelvis non OB uterus ovaries cervix 17:45:04 CDT CPT-73667 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
--- OUTSIDE RECORDS SUMMARY | 2019-10-27 13:48 | XMS REPORT | Clinical Summary ---
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 Benign neoplasm of colon PERIPHERAL [...] y atherosclerosis of unspecified type of vessel, diomede [...] MISC Test twice a day LANCET S 74800977595 Active Baltazar Childers MD Active TRUEDRAW LANCING DEVICE MISC Test twice a day L ANCET DEVICES 75964251919 Active Baltazar Childers MD Active TRUETRACK TEST STRP Test twice a day GLUCOSE BLOO D 34294153089 Active Baltazar Childers MD Active TRUETRACK BLOOD GLUCOSE W/DEVICE KIT Test twice a day BLOOD GLUCOSE MONITORING SUPPL 80530717387 Active Bella Suarez OFFSET SECOND PRESS OPERATOR Active HYDROCODONE-ACETAMINOPHEN 7.5-325 MG TABS Take 1 tab every 6-8 hour s PRN HYDROCODONE-ACETAMINOPHEN 08466722118 Active Baltazar Childers MD Active NORTRIPTYLINE HCL 50 MG CAPS 1 every night for neuropathy 4 NORTRIPTYLINE HCL 68937605482 Active Baltazar Childers MD Acti ve GABAPENTIN 300 MG CAPS 1 three times a day GABAPE NTIN 97708319892 Active Baltazar Childers MD Active GABAPENTIN 300 MG CAPS 1 po qd x 2 days, then 1 po BID x 2 d ays, then 1 po TID GABAPENTIN 34165849177 No Longer Active Baltazar silverman MD Active TRAMADOL HCL 50 MG TABS 1 twice a day as needed for pain TRAMADOL HCL 25897523250 Active Baltazar Childers MD Active NAPROXEN 500 MG TABS 1 tablet by mouth twice daily NAPROXEN 62902736854 No Longer Active Baltazar Childers MD Active PROAIR HFA 108 (90 BASE) MCG/ACT AERS 2 puffs four times a d ay as needed ALBUTEROL SULFATE 93258844712 Active Baltazar Childers MD Active DEPO-TESTOSTERONE 200 MG/ML OIL as directed RUFINO TOSTERONE CYPIONATE 41294880146 No Longer Active Baltazar Childers MD Active LIPITOR 20 MG TABS Take one by mouth daily in evening ATORVASTATIN CALCIUM 16393215079 No Longer Active Baltazar Childers MD Activ e CRESTOR 10 MG TABS 1 by mouth every day R OSUVASTATIN CALCIUM 04271780008 No Longer Active Baltazar Childers MD Activ e PHENTERMINE HCL 37.5 MG TABS Take one by mouth daily 2 PHENTERMINE HCL 22115224885 No Longer Active Baltazar Childers MD Activ e ROBAXIN-750 750 MG TABS Take one by mouth daily ME THOCARBAMOL 53489422181 Active Baltazar Childers MD Active TIZANIDINE HCL 4 MG TABS 1 daily as needed for muscle spasm 2011 TIZANIDINE HCL 20806408280 No Longer Active Dawna Salazar RN Active [employer] ULTRA BLUE STRP Test twice a day GLUCO SE BLOOD 34785052503 Active Baltazar Childers MD Active ZDGIULPUJJ-WVGZ-IKZZWCAR 50-325-40 MG TABS 1 four time s a day as needed for heacache UQFSLFNLRQ-WDLT-WJQTAVON 88076893972 Active Baltazar Childers MD Active SUMATRIPTAN SUCCINATE 100 MG TABS 1 tablet by mouth at onset of migraine as needed SUMATRIPTAN SUCCINATE 54140935673 Active Baltazar barron MD Active LORATADINE 10 MG TABS Take one by mouth daily LORATADINE 34335455912 Active Baltazar Childers MD Active FUROSEMIDE 40 MG TABS Take one by mouth daily FUROSEMIDE 77762838002 Active Baltazar Childers MD Active LISINOPRIL 20 MG TABS Take one by mouth daily at bedtime LISINOPRIL 89440106113 Active Baltazar Childers MD Active OMEPRAZOLE 20 MG CPDR Take one by mouth daily OMEPRAZOLE 54559899772 Active Baltazar Childers MD Active HYDROXYZINE HCL 25 MG TABS Take one by mouth daily HYDROXYZINE HCL 79608517019 Active Baltazar Childers MD Active GLIPIZIDE 10 MG TABS 1 tablet by mouth twice daily GLIPIZIDE 33230133266 Active Baltazar Childers MD Active ALPRAZOLAM 1 MG TABS 1 tablet by mouth daily at bedtime for restles s leg ALPRAZOLAM 89346565885 Active Baltazar Childers MD Active METFORMIN HCL 1000 MG TABS Take one by mouth twice daily METFORMIN HCL 18053077303 Active Baltazar Childers MD Active TIZANIDINE HCL 4 MG TABS 1 daily as needed for muscle spasm 2011 TIZANIDINE HCL 4 MG TABS 346532 TIZANIDINE HCL Inactiv e PHENTERMINE HCL 37.5 MG TABS Take one by mouth daily 2 PHENTERMINE HCL 37.5 MG TABS 251530 PHENTERMINE HCL Inactive CRESTOR 10 MG TABS 1 by mouth every day C RESTOR 10 MG TABS ROSUVASTATIN CALCIUM Inactive LIPITOR 20 MG TABS Take one by mouth daily in evening LIPITOR 20 MG TABS 286012 ATORVASTATIN CALCIUM Inactive DEPO-TESTOSTERONE 200 MG/ML OIL as directed 8 DEPO-TESTOSTERONE 200 MG/ML OIL 518852 TESTOSTERONE CYPIONATE Inactive NAPROXEN 500 MG TABS 1 tablet by mouth twice daily 201 07/27/22 NAPROXEN 500 MG TABS 727740 NAPROXEN Inactive GABAPENTIN 300 MG CAPS 1 po qd x 2 days, then 1 po BID x 2 d ays, then 1 po TID GABAPENTIN 300 MG CAPS 118921 GABAPENTIN Inact amie Immunizations Vaccine Administration Date Value Standard Floyd cription pneumococcal immunization administered Pneumovax 23 [CVX33] pneumococcal polysaccharide vaccine, 23 valent Seasonal influenza vaccine, injectable, containing preservative, for > 3 years old (Afluria, FluLaval, Fluzone, Fluvirin, Fluarix, Agriflu(>= 18 yo)) Fluzone (>3 yrs.) [[id number]] Influenza, seasonal, inject able Seasonal influenza vaccine, injectable, containing preservative, for > 3 years old (Afluria, FluLaval, Fluzone, Fluvirin, Fluarix, Agriflu(>= 18 yo)) Fluzone (>3 yrs.) [[id number]] Influenza, seasonal, inject able Vital Signs Date [...] Panel - Chemistry sodium, serum 139 mmol/L 789-581 4060/01/20 potassium, serum 5.3 mmol/L 3.5-5.2 chloride, serum [...] mg/g mg/g{creat} 0-29 cholesterol, serum 319 mg/dL 761-369 0406/08/21 triglyceride, serum, fasting 546 mg/dL 30-200 HDL cholesterol, serum 39 mg/dL 32-96 LDL cholesterol, serum 167.00 mg/dL 5.00-130.00 hemoglobin A1C, blood, as % of total hemoglobin 7.7 % 4.3-6.0 sodium, serum 138 mmol/L 733-982 0427/08/21 potassium, serum 4.3 mmol/L 3.5-5.2 chloride, serum [...] 0-19 Encounters Code Encounter Date Provider Facility CPT-39875 Level 4 Est. Patient 14:15:19 CDT Baltazar Childers MD [facility] CPT-73016 Level 4 Est. Patient 12:20:13 CDT Baltazar Childers MD [facility] CPT-32698 Level 4 Est. 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 Patient 14:18:34 PIPE TESTING TECHNICIAN Baltazar Childers MD [facility] CPT-32859 Level 4 Est. Patient 15:18:29 CDT Baltazar Childers MD [facility] CPT-76028 Level 3 Est. Patient 12:45:34 CDT Baltazar Childers MD [facility] CPT-41895 Level 3 Est. Patient 10:10:11 CDT Baltazar Childers MD [facility] CPT-20915 Level 3 Est. Patient 14:07:50 CDT Baltazar Childers MD [facility] CPT-48289 Level 4 Est. Patient 12:26:10 PIPE TESTING TECHNICIAN Baltazar Childers MD [facility] CPT-94655 Level 4 Est. Patient 14:45:38 CDT Baltazar Childers MD [facility] CPT-00732 Level 4 New Patient 12:30:48 CDT Baltazar hinton MD [facility] Procedures Code Procedure Name Date Entry Date Standard Desc ription CPT-61922 Venipuncture Draw Fee 12:10:27 PIPE TESTING TECHNICIAN CPT-62593 Fluzone Quadrivalent Intramuscular Suspe nsion 0.5 ML 10:49:13 CDT CPT-61099 First Vx Component - Ix admi n via ID IM or jet inj without physician counseling 15:17:19 PIPE TESTING TECHNICIAN CPT-08311 Pneumovax 23 15:17:19 PIPE TESTING TECHNICIAN CPT-25931 Pneumovax 14:52:45 PIPE TESTING TECHNICIAN CPT-92742 Venipuncture Draw Fee 14:06:30 PIPE TESTING TECHNICIAN CPT-000 Give Appropriate Flu Vaccine 14:18:34 PIPE TESTING TECHNICIAN 2 CPT-62186 Administration single or combination vac cine inc oral 14:46:00 PIPE TESTING TECHNICIAN CPT-73751 Influenza split virus > age 3 14:46:00 PIPE TESTING TECHNICIAN CPT-OV Office Visit 19:13:16 CDT CPT-98127 Zostavax 18:41:56 CDT CPT-71997 Administration single or combination vac cine inc oral 12:56:39 CDT CPT-80562 Zoster Vaccine (Zostavax) 12:56:39 CDT 2012 CPT-82796 Venipuncture Draw Fee 10:58:57 CDT CPT-57117 Sono pelvis non OB uterus ovaries cervix 17:45:04 CDT CPT-75825 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
--- OUTSIDE RECORDS SUMMARY | 2019-10-27 13:48 | XMS REPORT | Clinical Summary ---
[...] libido COLON POLYPS 211.3 Resolved Lolis Thomas COUNTERPERSON Benign neoplasm of colon PERIPHERAL NEUROPATHY 356.9 [...] y atherosclerosis of unspecified type of vessel, cher[place] or graft OTH NONSPC ABN FINDNG RAD&OTH [...] MISC Test twice a day LANCET S 50729964443 Active Baltazar Childers MD Active TRUEDRAW LANCING DEVICE MISC Test twice a day L ANCET DEVICES 11801115559 Active Baltazar Childers MD Active TRUETRACK TEST STRP Test twice a day GLUCOSE BLOO D 41047220994 Active Baltazar Childers MD Active TRUETRACK BLOOD GLUCOSE W/DEVICE KIT Test twice a day BLOOD GLUCOSE MONITORING SUPPL 65190370847 Active Bella Suarez COUNTERPERSON Active HYDROCODONE-ACETAMINOPHEN 7.5-325 MG TABS Take 1 tab every 6-8 hour s PRN HYDROCODONE-ACETAMINOPHEN 11314303680 Active Baltazar Childers MD Active NORTRIPTYLINE HCL 50 MG CAPS 1 every night for neuropathy 4 NORTRIPTYLINE HCL 42870049499 Active Baltazar Childers MD Acti ve GABAPENTIN 300 MG CAPS 1 three times a day GABAPE NTIN 82784129439 Active Baltazar Childers MD Active GABAPENTIN 300 MG CAPS 1 po qd x 2 days, then 1 po BID x 2 d ays, then 1 po TID GABAPENTIN 94668505918 No Longer Active Baltazar silverman MD Active TRAMADOL HCL 50 MG TABS 1 twice a day as needed for pain TRAMADOL HCL 59974858411 Active Baltazar Childers MD Active NAPROXEN 500 MG TABS 1 tablet by mouth twice daily NAPROXEN 77212845077 No Longer Active Baltazar Childers MD Active PROAIR HFA 108 (90 BASE) MCG/ACT AERS 2 puffs four times a d ay as needed ALBUTEROL SULFATE 62008597761 Active Baltazar Childers MD Active DEPO-TESTOSTERONE 200 MG/ML OIL as directed RUFINO TOSTERONE CYPIONATE 19308486266 No Longer Active Baltazar Childers MD Active LIPITOR 20 MG TABS Take one by mouth daily in evening ATORVASTATIN CALCIUM 42050847495 No Longer Active Baltazar Childers MD Activ e CRESTOR 10 MG TABS 1 by mouth every day R OSUVASTATIN CALCIUM 63877500037 No Longer Active Baltazar Childers MD Activ e PHENTERMINE HCL 37.5 MG TABS Take one by mouth daily 2 PHENTERMINE HCL 96299063313 No Longer Active Baltazar Childers MD Activ e ROBAXIN-750 750 MG TABS Take one by mouth daily ME THOCARBAMOL 94930946199 Active Baltazar Childers MD Active TIZANIDINE HCL 4 MG TABS 1 daily as needed for muscle spasm 2011 TIZANIDINE HCL 26655372539 No Longer Active Dawna Salaazr RN Active [facility] ULTRA BLUE STRP Test twice a day GLUCO SE BLOOD 82046258429 Active Baltazar Childers MD Active [id number] 50-325-40 MG TABS 1 four time s a day as needed for heacache [id number] 64010679303 Active Baltazar Childers MD Active SUMATRIPTAN SUCCINATE 100 MG TABS 1 tablet by mouth at onset of migraine as needed SUMATRIPTAN SUCCINATE 49933371002 Active Baltazar barron MD Active LORATADINE 10 MG TABS Take one by mouth daily LORATADINE 19024534851 Active Baltazar Childers MD Active FUROSEMIDE 40 MG TABS Take one by mouth daily FUROSEMIDE 50329213387 Active Baltazar Childers MD Active LISINOPRIL 20 MG TABS Take one by mouth daily at bedtime LISINOPRIL 51427073082 Active Baltazar Childers MD Active OMEPRAZOLE 20 MG CPDR Take one by mouth daily OMEPRAZOLE 72201904816 Active Baltazar Childers MD Active HYDROXYZINE HCL 25 MG TABS Take one by mouth daily HYDROXYZINE HCL 10328320628 Active Baltazar Childers MD Active GLIPIZIDE 10 MG TABS 1 tablet by mouth twice daily GLIPIZIDE 21356622736 Active Baltazar Childers MD Active ALPRAZOLAM 1 MG TABS 1 tablet by mouth daily at bedtime for restles s leg ALPRAZOLAM 00900355778 Active Baltazar Childers MD Active METFORMIN HCL 1000 MG TABS Take one by mouth twice daily METFORMIN HCL 70392164459 Active Baltazar Childers MD Active TIZANIDINE HCL 4 MG TABS 1 daily as needed for muscle spasm 2011 TIZANIDINE HCL 4 MG TABS 045514 TIZANIDINE HCL Inactiv e PHENTERMINE HCL 37.5 MG TABS Take one by mouth daily 2 PHENTERMINE HCL 37.5 MG TABS 882546 PHENTERMINE HCL Inactive CRESTOR 10 MG TABS 1 by mouth every day C RESTOR 10 MG TABS ROSUVASTATIN CALCIUM Inactive LIPITOR 20 MG TABS Take one by mouth daily in evening LIPITOR 20 MG TABS 914271 ATORVASTATIN CALCIUM Inactive DEPO-TESTOSTERONE 200 MG/ML OIL as directed 8 DEPO-TESTOSTERONE 200 MG/ML OIL 266819 TESTOSTERONE CYPIONATE Inactive NAPROXEN 500 MG TABS 1 tablet by mouth twice daily 201 07/27/22 NAPROXEN 500 MG TABS 034078 NAPROXEN Inactive GABAPENTIN 300 MG CAPS 1 po qd x 2 days, then 1 po BID x 2 d ays, then 1 po TID GABAPENTIN 300 MG CAPS 300125 GABAPENTIN Inact amie Immunizations Vaccine Administration Date Value Standard Floyd cription pneumococcal immunization administered Pneumovax 23 [CVX33] pneumococcal polysaccharide vaccine, 23 valent Seasonal influenza vaccine, injectable, containing preservative, for > 3 years old (Afluria, FluLaval, Fluzone, Fluvirin, Fluarix, Agriflu(>= 18 yo)) Fluzone (>3 yrs.) [[id number]] Influenza, seasonal, inject able Seasonal influenza vaccine, injectable, containing preservative, for > 3 years old (Afluria, FluLaval, Fluzone, Fluvirin, Fluarix, Agriflu(>= 18 yo)) Fluzone (>3 yrs.) [[id number]] Influenza, seasonal, inject able Vital Signs Date [...] Panel - Chemistry sodium, serum 139 mmol/L 656-591 5885/01/20 potassium, serum 5.3 mmol/L 3.5-5.2 chloride, serum [...] mg/g mg/g{creat} 0-29 cholesterol, serum 319 mg/dL 289-483 2442/08/21 triglyceride, serum, fasting 546 mg/dL 30-200 HDL cholesterol, serum 39 mg/dL 32-96 LDL cholesterol, serum 167.00 mg/dL 5.00-130.00 hemoglobin A1C, blood, as % of total hemoglobin 7.7 % 4.3-6.0 sodium, serum 138 mmol/L 529-776 9864/08/21 potassium, serum 4.3 mmol/L 3.5-5.2 chloride, serum [...] 0-19 Encounters Code Encounter Date Provider Facility CPT-05571 Level 4 Est. Patient 14:15:19 CDT Baltazar Childers MD [facility] CPT-32932 Level 4 Est. Patient 12:20:13 CDT Baltazar Childers MD [facility] CPT-85598 Level 4 Est. Patient 14:52:45 SYBASE DEVELOPER Baltazar Childers MD [facility] CPT-39189 Level 4 Est. Patient 14:18:34 SYBASE DEVELOPER Baltazar Childers MD [facility] CPT-03894 Level 4 Est. Patient 15:18:29 CDT Baltazar Childers MD [facility] CPT-39693 Level 3 Est. Patient 12:45:34 CDT Baltazar Childers MD [facility] CPT-21436 Level 3 Est. Patient 10:10:11 CDT Baltazar Childers MD [facility] CPT-15998 Level 3 Est. Patient 14:07:50 CDT Baltazar Childers MD [facility] CPT-57897 Level 4 Est. Patient 12:26:10 SYBASE DEVELOPER Baltazar Childers MD [facility] CPT-00916 Level 4 Est. Patient 14:45:38 CDT Baltazar Childers MD [facility] CPT-64902 Level 4 New Patient 12:30:48 CDT Baltazar hinton MD [facility] Procedures Code Procedure Name Date Entry Date Standard Desc ription CPT-46207 Venipuncture Draw Fee 12:10:27 SYBASE DEVELOPER CPT-27126 Fluzone Quadrivalent Intramuscular Suspe nsion 0.5 ML 10:49:13 CDT CPT-68885 First Vx Component - Ix admi n via ID IM or jet inj without physician counseling 15:17:19 SYBASE DEVELOPER CPT-12220 Pneumovax 23 15:17:19 SYBASE DEVELOPER CPT-88542 Pneumovax 14:52:45 SYBASE DEVELOPER CPT-64148 Venipuncture Draw Fee 14:06:30 SYBASE DEVELOPER CPT-000 Give Appropriate Flu Vaccine 14:18:34 SYBASE DEVELOPER 2 CPT-00038 Administration single or combination vac cine inc oral 14:46:00 SYBASE DEVELOPER CPT-94106 Influenza split virus > age 3 14:46:00 SYBASE DEVELOPER CPT-OV Office Visit 19:13:16 CDT CPT-19040 Zostavax 18:41:56 CDT CPT-05638 Administration single or combination vac cine inc oral 12:56:39 CDT CPT-73419 Zoster Vaccine (Zostavax) 12:56:39 CDT 2012 CPT-21458 Venipuncture Draw Fee 10:58:57 CDT CPT-34089 Sono pelvis non OB uterus ovaries cervix 17:45:04 CDT CPT-06932 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
--- OUTSIDE RECORDS SUMMARY | 2019-10-27 13:48 | XMS REPORT | Clinical Summary ---
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 Benign neoplasm of colon PERIPHERAL NEUROPATHY 356.9 [...] y atherosclerosis of unspecified type of vessel, [place] [...] MISC Test twice a day LANCET S 25377742991 Active Baltazar Childers MD Active TRUEDRAW LANCING DEVICE MISC Test twice a day L ANCET DEVICES 30406147030 Active Baltazar Childers MD Active TRUETRACK TEST STRP Test twice a day GLUCOSE BLOO D 83174818838 Active Baltazar Childers MD Active TRUETRACK BLOOD GLUCOSE W/DEVICE KIT Test twice a day BLOOD GLUCOSE MONITORING SUPPL 90155140271 Active Bella Suarez MANAGER TRADE Active HYDROCODONE-ACETAMINOPHEN 7.5-325 MG TABS Take 1 tab every 6-8 hour s PRN HYDROCODONE-ACETAMINOPHEN 43830202790 Active Baltazar Childers MD Active NORTRIPTYLINE HCL 50 MG CAPS 1 every night for neuropathy 4 NORTRIPTYLINE HCL 59363296985 Active Baltazar Childers MD Acti ve GABAPENTIN 300 MG CAPS 1 three times a day GABAPE NTIN 84095475411 Active Baltazar Childers MD Active GABAPENTIN 300 MG CAPS 1 po qd x 2 days, then 1 po BID x 2 d ays, then 1 po TID GABAPENTIN 03280004140 No Longer Active Baltazar silverman MD Active TRAMADOL HCL 50 MG TABS 1 twice a day as needed for pain TRAMADOL HCL 59804119898 Active Baltazar Childers MD Active NAPROXEN 500 MG TABS 1 tablet by mouth twice daily NAPROXEN 10166375898 No Longer Active Baltazar Childers MD Active PROAIR HFA 108 (90 BASE) MCG/ACT AERS 2 puffs four times a d ay as needed ALBUTEROL SULFATE 36868770452 Active Baltazar Childers MD Active DEPO-TESTOSTERONE 200 MG/ML OIL as directed RUFINO TOSTERONE CYPIONATE 40695886675 No Longer Active Baltazar Childers MD Active LIPITOR 20 MG TABS Take one by mouth daily in evening ATORVASTATIN CALCIUM 46138472976 No Longer Active Baltazar Childers MD Activ e CRESTOR 10 MG TABS 1 by mouth every day R OSUVASTATIN CALCIUM 05553321333 No Longer Active Baltazar Childers MD Activ e PHENTERMINE HCL 37.5 MG TABS Take one by mouth daily 2 PHENTERMINE HCL 03975196004 No Longer Active Baltazar Childers MD Activ e ROBAXIN-750 750 MG TABS Take one by mouth daily ME THOCARBAMOL 71446992204 Active Baltazar Childers MD Active TIZANIDINE HCL 4 MG TABS 1 daily as needed for muscle spasm 2011 TIZANIDINE HCL 10172033915 No Longer Active Dawna Salazar RN Active [facility] ULTRA BLUE STRP Test twice a day GLUCO SE BLOOD 97041074253 Active Baltazar Childers MD Active [id number] 50-325-40 MG TABS 1 four time s a day as needed for heacache [id number] 14121085600 Active Baltazar Childers MD Active SUMATRIPTAN SUCCINATE 100 MG TABS 1 tablet by mouth at onset of migraine as needed SUMATRIPTAN SUCCINATE 76329558380 Active Baltazar barron MD Active LORATADINE 10 MG TABS Take one by mouth daily LORATADINE 16068860088 Active Baltazar Childers MD Active FUROSEMIDE 40 MG TABS Take one by mouth daily FUROSEMIDE 71462841634 Active Baltazar Childers MD Active LISINOPRIL 20 MG TABS Take one by mouth daily at bedtime LISINOPRIL 21740078390 Active Baltazar Childers MD Active OMEPRAZOLE 20 MG CPDR Take one by mouth daily OMEPRAZOLE 72242070497 Active Baltazar Childers MD Active HYDROXYZINE HCL 25 MG TABS Take one by mouth daily HYDROXYZINE HCL 11295117526 Active Baltazar Childers MD Active GLIPIZIDE 10 MG TABS 1 tablet by mouth twice daily GLIPIZIDE 28282066015 Active Baltazar Childers MD Active ALPRAZOLAM 1 MG TABS 1 tablet by mouth daily at bedtime for restles s leg ALPRAZOLAM 86849977113 Active Baltazar Childers MD Active METFORMIN HCL 1000 MG TABS Take one by mouth twice daily METFORMIN HCL 24644567528 Active Baltazar Childers MD Active TIZANIDINE HCL 4 MG TABS 1 daily as needed for muscle spasm 2011 TIZANIDINE HCL 4 MG TABS 134659 TIZANIDINE HCL Inactiv e PHENTERMINE HCL 37.5 MG TABS Take one by mouth daily 2 PHENTERMINE HCL 37.5 MG TABS 650342 PHENTERMINE HCL Inactive CRESTOR 10 MG TABS 1 by mouth every day C RESTOR 10 MG TABS ROSUVASTATIN CALCIUM Inactive LIPITOR 20 MG TABS Take one by mouth daily in evening LIPITOR 20 MG TABS 785317 ATORVASTATIN CALCIUM Inactive DEPO-TESTOSTERONE 200 MG/ML OIL as directed 8 DEPO-TESTOSTERONE 200 MG/ML OIL 684219 TESTOSTERONE CYPIONATE Inactive NAPROXEN 500 MG TABS 1 tablet by mouth twice daily 201 07/27/22 NAPROXEN 500 MG TABS 056688 NAPROXEN Inactive GABAPENTIN 300 MG CAPS 1 po qd x 2 days, then 1 po BID x 2 d ays, then 1 po TID GABAPENTIN 300 MG CAPS 784270 GABAPENTIN Inact amie Immunizations Vaccine Administration Date Value Standard Floyd cription pneumococcal immunization administered Pneumovax 23 [CVX33] pneumococcal polysaccharide vaccine, 23 valent Seasonal influenza vaccine, injectable, containing preservative, for > 3 years old (Afluria, FluLaval, Fluzone, Fluvirin, Fluarix, Agriflu(>= 18 yo)) Fluzone (>3 yrs.) [YUX142] Influenza, seasonal, inject able Seasonal influenza vaccine, injectable, containing preservative, for > 3 years old (Afluria, FluLaval, Fluzone, Fluvirin, Fluarix, Agriflu(>= 18 yo)) Fluzone (>3 yrs.) [[id number]] Influenza, seasonal, inject able Vital Signs Date [...] Panel - Chemistry sodium, serum 139 mmol/L 561-004 7426/01/20 potassium, serum 5.3 mmol/L 3.5-5.2 chloride, serum [...] mg/g mg/g{creat} 0-29 cholesterol, serum 319 mg/dL 462-188 1532/08/21 triglyceride, serum, fasting 546 mg/dL 30-200 HDL cholesterol, serum 39 mg/dL 32-96 LDL cholesterol, serum 167.00 mg/dL 5.00-130.00 hemoglobin A1C, blood, as % of total hemoglobin 7.7 % 4.3-6.0 sodium, serum 138 mmol/L 040-869 7733/08/21 potassium, serum 4.3 mmol/L 3.5-5.2 chloride, serum [...] 0-19 Encounters Code Encounter Date Provider Facility CPT-69765 Level 4 Est. Patient 14:15:19 CDT Baltazar Childers MD [facility] CPT-50690 Level 4 Est. Patient 12:20:13 CDT Baltazar Childers MD [facility] CPT-52143 Level 4 Est. Patient 14:52:45 AIR TRAFFIC COORDINATOR Baltazar Childers MD [facility] CPT-36745 Level 4 Est. Patient 14:18:34 AIR TRAFFIC COORDINATOR Baltazar Childers MD [facility] CPT-00604 Level 4 Est. Patient 15:18:29 CDT Baltazar Childers MD [facility] CPT-11620 Level 3 Est. Patient 12:45:34 CDT Baltazar Childers MD [facility] CPT-58888 Level 3 Est. Patient 10:10:11 CDT Baltazar Childers MD [facility] CPT-20774 Level 3 Est. Patient 14:07:50 CDT Baltazar Childers MD [facility] CPT-54692 Level 4 Est. Patient 12:26:10 AIR TRAFFIC COORDINATOR Baltazar Childers MD [facility] CPT-02368 Level 4 Est. Patient 14:45:38 CDT Baltazar Childers MD [facility] CPT-90740 Level 4 New Patient 12:30:48 CDT Baltazar hinton MD [facility] Procedures Code Procedure Name Date Entry Date Standard Desc ription CPT-22418 Venipuncture Draw Fee 12:10:27 AIR TRAFFIC COORDINATOR CPT-25370 Fluzone Quadrivalent Intramuscular Suspe nsion 0.5 ML 10:49:13 CDT CPT-80369 First Vx Component - Ix admi n via ID IM or jet inj without physician counseling 15:17:19 AIR TRAFFIC COORDINATOR CPT-73255 Pneumovax 23 15:17:19 AIR TRAFFIC COORDINATOR CPT-12449 Pneumovax 14:52:45 AIR TRAFFIC COORDINATOR CPT-29244 Venipuncture Draw Fee 14:06:30 AIR TRAFFIC COORDINATOR CPT-000 Give Appropriate Flu Vaccine 14:18:34 AIR TRAFFIC COORDINATOR 2 CPT-21101 Administration single or combination vac cine inc oral 14:46:00 AIR TRAFFIC COORDINATOR CPT-02066 Influenza split virus > age 3 14:46:00 AIR TRAFFIC COORDINATOR CPT-OV Office Visit 19:13:16 CDT CPT-74840 Zostavax 18:41:56 CDT CPT-22167 Administration single or combination vac cine inc oral 12:56:39 CDT CPT-16479 Zoster Vaccine (Zostavax) 12:56:39 CDT 2012 CPT-08494 Venipuncture Draw Fee 10:58:57 CDT CPT-28229 Sono pelvis non OB uterus ovaries cervix 17:45:04 CDT CPT-11099 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
--- OUTSIDE RECORDS SUMMARY | 2019-10-27 13:49 | XMS REPORT | Clinical Summary ---
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 Thomas DIRECTOR PRISON Benign neoplasm of colon PERIPHERAL NEUROPATHY 356.9 [...] y atherosclerosis of unspecified type of vessel, [place] [...] MISC Test twice a day LANCET S 13229303274 Active Baltazar Childers MD Active TRUEDRAW LANCING DEVICE MISC Test twice a day L ANCET DEVICES 16879072002 Active Baltazar Childers MD Active TRUETRACK TEST STRP Test twice a day GLUCOSE BLOO D 54708902782 Active Baltazar Childers MD Active TRUETRACK BLOOD GLUCOSE W/DEVICE KIT Test twice a day BLOOD GLUCOSE MONITORING SUPPL 41072371349 Active Bella Yokum DIRECTOR PRISON Active HYDROCODONE-ACETAMINOPHEN 7.5-325 MG TABS Take 1 tab every 6-8 hour s PRN HYDROCODONE-ACETAMINOPHEN 54696856775 Active Bella Yogeovanyum DIRECTOR PRISON Active NORTRIPTYLINE HCL 50 MG CAPS 1 every night for neuropathy 4 NORTRIPTYLINE HCL 28995779059 Active Baltazar Childers MD Acti ve GABAPENTIN 300 MG CAPS 1 three times a day GABAPE NTIN 80070778176 Active Baltazar Childers MD Active GABAPENTIN 300 MG CAPS 1 po qd x 2 days, then 1 po BID x 2 d ays, then 1 po TID GABAPENTIN 08741400543 No Longer Active Baltazar silverman MD Active TRAMADOL HCL 50 MG TABS 1 twice a day as needed for pain TRAMADOL HCL 11240173690 Active Baltazar Childers MD Active NAPROXEN 500 MG TABS 1 tablet by mouth twice daily NAPROXEN 79066358509 No Longer Active Baltazar Childers MD Active PROAIR HFA 108 (90 BASE) MCG/ACT AERS 2 puffs four times a d ay as needed ALBUTEROL SULFATE 94842763654 Active Baltazar Childers MD Active DEPO-TESTOSTERONE 200 MG/ML OIL as directed RUFINO TOSTERONE CYPIONATE 33346076604 No Longer Active Baltazar Childers MD Active LIPITOR 20 MG TABS Take one by mouth daily in evening ATORVASTATIN CALCIUM 62117307546 No Longer Active Baltazar Childers MD Activ e CRESTOR 10 MG TABS 1 by mouth every day R OSUVASTATIN CALCIUM 44572673008 No Longer Active Baltazar Childers MD Activ e PHENTERMINE HCL 37.5 MG TABS Take one by mouth daily 2 PHENTERMINE HCL 29638415912 No Longer Active Baltazar Childers MD Activ e ROBAXIN-750 750 MG TABS Take one by mouth daily ME THOCARBAMOL 57352301872 Active Baltazar Childers MD Active TIZANIDINE HCL 4 MG TABS 1 daily as needed for muscle spasm 2011 TIZANIDINE HCL 09342834625 No Longer Active Dawna Salazar RN Active FibeRioUCH ULTRA BLUE STRP Test twice a day GLUCO SE BLOOD 20319063054 Active Baltazar Childers MD Active ZADIFIZJAV-VWVR-[id number] 50-325-40 MG TABS 1 four time s a day as needed for heacache OGOREEUKMI-UGCJ-[id number] 70124811720 Active Baltazar Childers MD Active SUMATRIPTAN SUCCINATE 100 MG TABS 1 tablet by mouth at onset of migraine as needed SUMATRIPTAN SUCCINATE 46289970523 Active Baltazar barron MD Active LORATADINE 10 MG TABS Take one by mouth daily LORATADINE 53475165066 Active Baltazar Childers MD Active FUROSEMIDE 40 MG TABS Take one by mouth daily FUROSEMIDE 09773513353 Active Baltazar Childers MD Active LISINOPRIL 20 MG TABS Take one by mouth daily at bedtime LISINOPRIL 57246113250 Active Baltazar Childers MD Active OMEPRAZOLE 20 MG CPDR Take one by mouth daily OMEPRAZOLE 89162371479 Active Baltazar Childers MD Active HYDROXYZINE HCL 25 MG TABS Take one by mouth daily HYDROXYZINE HCL 53068596855 Active Baltazar Childers MD Active GLIPIZIDE 10 MG TABS 1 tablet by mouth twice daily GLIPIZIDE 82137767694 Active Baltazar Childers MD Active ALPRAZOLAM 1 MG TABS 1 tablet by mouth daily at bedtime for restles s leg ALPRAZOLAM 92060872502 Active Baltazar Childers MD Active METFORMIN HCL 1000 MG TABS Take one by mouth twice daily METFORMIN HCL 74311519472 Active Baltazar Childers MD Active TIZANIDINE HCL 4 MG TABS 1 daily as needed for muscle spasm 2011 TIZANIDINE HCL 4 MG TABS 858901 TIZANIDINE HCL Inactiv e PHENTERMINE HCL 37.5 MG TABS Take one by mouth daily 2 PHENTERMINE HCL 37.5 MG TABS 004326 PHENTERMINE HCL Inactive CRESTOR 10 MG TABS 1 by mouth every day C RESTOR 10 MG TABS ROSUVASTATIN CALCIUM Inactive LIPITOR 20 MG TABS Take one by mouth daily in evening LIPITOR 20 MG TABS 567757 ATORVASTATIN CALCIUM Inactive DEPO-TESTOSTERONE 200 MG/ML OIL as directed 8 DEPO-TESTOSTERONE 200 MG/ML OIL 888193 TESTOSTERONE CYPIONATE Inactive NAPROXEN 500 MG TABS 1 tablet by mouth twice daily 201 07/27/22 NAPROXEN 500 MG TABS 083382 NAPROXEN Inactive GABAPENTIN 300 MG CAPS 1 po qd x 2 days, then 1 po BID x 2 d ays, then 1 po TID GABAPENTIN 300 MG CAPS 320214 GABAPENTIN Inact amie Immunizations Vaccine Administration Date Value Standard Floyd cription pneumococcal immunization administered Pneumovax 23 [CVX33] pneumococcal polysaccharide vaccine, 23 valent Seasonal influenza vaccine, injectable, containing preservative, for > 3 years old (Afluria, FluLaval, Fluzone, Fluvirin, Fluarix, Agriflu(>= 18 yo)) Fluzone (>3 yrs.) [[id number]] Influenza, seasonal, inject able Seasonal influenza vaccine, injectable, containing preservative, for > 3 years old (Afluria, FluLaval, Fluzone, Fluvirin, Fluarix, Agriflu(>= 18 yo)) Fluzone (>3 yrs.) [[id number]] Influenza, seasonal, inject able Vital Signs Date [...] C - Chemistry sodium, serum 140 mmol/L 695-025 3442/02/26 potassium, serum 5.3 mmol/L 3.5-5.2 chloride, serum [...] Panel - Chemistry sodium, serum 139 mmol/L 443-224 6798/01/20 potassium, serum 5.3 mmol/L 3.5-5.2 chloride, serum [...] mg/g mg/g{creat} 0-29 cholesterol, serum 319 mg/dL 240-123 4300/08/21 triglyceride, serum, fasting 546 mg/dL 30-200 HDL cholesterol, serum 39 mg/dL 32-96 LDL cholesterol, serum 167.00 mg/dL 5.00-130.00 hemoglobin A1C, blood, as % of total hemoglobin 7.7 % 4.3-6.0 sodium, serum 138 mmol/L 385-296 0957/08/21 potassium, serum 4.3 mmol/L 3.5-5.2 chloride, serum [...] mg/dL Encounters Code Encounter Date Provider Facility CPT-94746 Level 4 Est. Patient 14:15:19 CDT Baltazar Childers MD [facility] CPT-69116 Level 4 Est. Patient 12:20:13 CDT Baltazar Childers MD [facility] CPT-91941 Level 4 Est. Patient 14:52:45 NIGHT BAKER Baltazar Childers MD [facility] CPT-83733 Level 4 Est. Patient 14:18:34 NIGHT BAKER Baltazar Childers MD [facility] CPT-77029 Level 4 Est. Patient 15:18:29 CDT Baltazar Childers MD [facility] CPT-67250 Level 3 Est. Patient 12:45:34 CDT Baltazar Childers MD [facility] CPT-72882 Level 3 Est. Patient 10:10:11 CDT Baltazar Childers MD [facility] CPT-64470 Level 3 Est. Patient 14:07:50 CDT Baltazar Childers MD [facility] CPT-76554 Level 4 Est. Patient 12:26:10 NIGHT BAKER Baltazar Childers MD [facility] CPT-87300 Level 4 Est. Patient 14:45:38 CDT Baltazar Childers MD [facility] CPT-43584 Level 4 New Patient 12:30:48 CDT Baltazar hinton MD [facility] Procedures Code Procedure Name Date Entry Date Standard Desc ription CPT-07518 Venipuncture Draw Fee 12:10:27 NIGHT BAKER CPT-98686 Fluzone Quadrivalent Intramuscular Suspe nsion 0.5 ML 10:49:13 CDT CPT-66734 First Vx Component - Ix admi n via ID IM or jet inj without physician counseling 15:17:19 NIGHT BAKER CPT-89529 Pneumovax 15:17:19 NIGHT BAKER CPT-90253 Pneumovax 14:52:45 NIGHT BAKER CPT-37782 Venipuncture Draw Fee 14:06:30 NIGHT BAKER CPT-000 Give Appropriate Flu Vaccine 14:18:34 NIGHT BAKER 2 CPT-21796 Administration single or combination vac cine inc oral 14:46:00 NIGHT BAKER CPT-30755 Influenza split virus > age 3 14:46:00 NIGHT BAKER CPT-OV Office Visit 19:13:16 CDT CPT-69409 Zostavax 18:41:56 CDT CPT-84608 Administration single or combination vac cine inc oral 12:56:39 CDT CPT-49746 Zoster Vaccine (Zostavax) 12:56:39 CDT 2012 CPT-04897 Venipuncture Draw Fee 10:58:57 CDT CPT-34263 Sono pelvis non OB uterus ovaries cervix 17:45:04 CDT CPT-21053 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
--- OUTSIDE RECORDS SUMMARY | 2019-10-27 13:49 | XMS REPORT | Clinical Summary ---
[...] of unspecified type of vessel, [place] or graft OTH NONSPC ABN FINDNG RAD&OTH [...] tab every 6-8 hour s PRN HYDROCODONE-ACETAMINOPHEN 79489041603 Active Baltazar Childers MD Active NORTRIPTYLINE HCL 50 MG CAPS 1 every night for neuropathy 4 NORTRIPTYLINE HCL 97017368967 Active Baltazar Childers MD Acti ve GABAPENTIN 300 MG CAPS 1 three times a day GABAPE NTIN 11369377398 Active Baltazar Childers MD Active GABAPENTIN 300 MG CAPS 1 po qd x 2 days, then 1 po BID x 2 d ays, then 1 po TID GABAPENTIN 40315084071 No Longer Active Baltazar silverman MD Active TRAMADOL HCL 50 MG TABS 1 twice a day as needed for pain TRAMADOL HCL 99581980173 Active Baltazar Childers MD Active NAPROXEN 500 MG TABS 1 tablet by mouth twice daily NAPROXEN 74438914127 No Longer Active Baltazar Childers MD Active PROAIR HFA 108 (90 BASE) MCG/ACT AERS 2 puffs four times a d ay as needed ALBUTEROL SULFATE 98011191358 Active Baltazar Childers MD Active DEPO-TESTOSTERONE 200 MG/ML OIL as directed RUFINO TOSTERONE CYPIONATE 21191408456 No Longer Active Baltazar Childers MD Active LIPITOR 20 MG TABS Take one by mouth daily in evening ATORVASTATIN CALCIUM 42943802099 No Longer Active Baltazar Childers MD Activ e CRESTOR 10 MG TABS 1 by mouth every day R OSUVASTATIN CALCIUM 90802942544 No Longer Active Baltazar Childers MD Activ e PHENTERMINE HCL 37.5 MG TABS Take one by mouth daily 2 PHENTERMINE HCL 86681510209 No Longer Active Baltazar Childers MD Activ e ROBAXIN-750 750 MG TABS Take one by mouth daily ME THOCARBAMOL 52317829465 Active Baltazar Childers MD Active TIZANIDINE HCL 4 MG TABS 1 daily as needed for muscle spasm 2011 TIZANIDINE HCL 33557637142 No Longer Active Dawna Salazar RN Active ONETOUCH ULTRA BLUE STRP Test twice a day GLUCO SE BLOOD 69081380567 Active Baltazar Childers MD Active VIAMFZUMZG-BOKN-QKYCWRRI 50-325-40 MG TABS 1 four time s a day as needed for heacache AOFACMKSFE-HTQO-ECSUWJHQ 18548040207 Active Baltazar Childers MD Active SUMATRIPTAN SUCCINATE 100 MG TABS 1 tablet by mouth at onset of migraine as needed SUMATRIPTAN SUCCINATE 56437896257 Active Shireen Miller APRN Active LORATADINE 10 MG TABS Take one by mouth daily LORATADINE 17556949584 Active Brad Hugehs Active FUROSEMIDE 40 MG TABS Take one by mouth daily FUROSEMIDE 45724156803 Active Shireen Miller APRN Active LISINOPRIL 20 MG TABS Take one by mouth daily at bedtime LISINOPRIL 96398957126 Active Shireen Miller APRN Active OMEPRAZOLE 20 MG CPDR Take one by mouth daily OMEPRAZOLE 01392695414 Active Shireen Miller APRN Active HYDROXYZINE HCL 25 MG TABS Take one by mouth daily HYDROXYZINE HCL 63078922246 Active Shireen Miller APRN Active GLIPIZIDE 10 MG TABS 1 tablet by mouth twice daily GLIPIZIDE 25444352251 Active Shireen Miller APRN Active ALPRAZOLAM 1 MG TABS 1 tablet by mouth daily at bedtime for restles s leg ALPRAZOLAM 64540647239 Active Baltazar Childers MD Active METFORMIN HCL 1000 MG TABS Take one by mouth twice daily METFORMIN HCL 22805773557 Active Shireen Miller APRN Active TIZANIDINE HCL 4 MG TABS 1 daily as needed for muscle spasm 2011 TIZANIDINE HCL 4 MG TABS 843812 TIZANIDINE HCL Inactiv e PHENTERMINE HCL 37.5 MG TABS Take one by mouth daily 2 PHENTERMINE HCL 37.5 MG TABS 240687 PHENTERMINE HCL Inactive CRESTOR 10 MG TABS 1 by mouth every day C RESTOR 10 MG TABS ROSUVASTATIN CALCIUM Inactive LIPITOR 20 MG TABS Take one by mouth daily in evening LIPITOR 20 MG TABS 625554 ATORVASTATIN CALCIUM Inactive DEPO-TESTOSTERONE 200 MG/ML OIL as directed 8 DEPO-TESTOSTERONE 200 MG/ML OIL 115750 TESTOSTERONE CYPIONATE Inactive NAPROXEN 500 MG TABS 1 tablet by mouth twice daily 201 07/27/22 NAPROXEN 500 MG TABS 895757 NAPROXEN Inactive GABAPENTIN 300 MG CAPS 1 po qd x 2 days, then 1 po BID x 2 d ays, then 1 po TID GABAPENTIN 300 MG CAPS 708520 GABAPENTIN Inact amie Immunizations Vaccine Administration Date Value Standard Floyd cription pneumococcal immunization administered Pneumovax 23 [CVX33] pneumococcal polysaccharide vaccine, 23 valent Seasonal influenza vaccine, injectable, containing preservative, for > 3 years old (Afluria, FluLaval, Fluzone, Fluvirin, Fluarix, Agriflu(>= 18 yo)) Fluzone (>3 yrs.) [[id number]] Influenza, seasonal, inject able Seasonal influenza vaccine, injectable, containing preservative, for > 3 years old (Afluria, FluLaval, Fluzone, Fluvirin, Fluarix, Agriflu(>= 18 yo)) Fluzone (>3 yrs.) [EDS352] Influenza, seasonal, inject able Vital Signs Date [...] C - Chemistry sodium, serum 140 mmol/L 737-263 7230/02/26 potassium, serum 5.3 mmol/L 3.5-5.2 chloride, serum 101 mmol/L 98-107 carbon dioxide, venous blood 36.9 mmol/L 21.0-32 .0 blood glucose 151 mg/dL 65-110 calcium, serum 8.7 mg/dL 8.5-10.1 urea nitrogen, blood 19 mg/dL 7-18 creatinine, serum 1.60 mg/dL 0.60-1.30 hemoglobin A1C, blood, as % of total hemoglobin 7.9 % 4.3-6.0 Lab Report: CBC, Basic Metabolic Panel, HGBA1C - Chemistry sodium, serum 138 mmol/L 333-107 9931/05/23 potassium, serum 4.9 mmol/L 3.5-5.2 chloride, serum [...] 0.39 mg/dL 0.00-1.00 cholesterol, serum 345 mg/dL 831-745 3172/08/26 triglyceride, serum, fasting 635 mg/dL 30-200 HDL [...] Panel - Chemistry sodium, serum 136 mmol/L 146-638 4077/01/06 potassium, serum 5.1 mmol/L 3.5-5.2 chloride, serum [...] Panel - Chemistry sodium, serum 139 mmol/L 778-414 7969/08/26 potassium, serum 5.8 mmol/L 3.5-5.2 chloride, serum 98 mmol/L 98-107 carbon dioxide, venous blood 33.0 mmol/L 21.0-32 .0 blood glucose 107 mg/dL 65-110 urea nitrogen, blood 26 mg/dL 7-18 creatinine, serum 1.80 mg/dL 0.60-1.30 calcium, serum 9.3 mg/dL 8.5-10.1 sodium, serum 138 mmol/L 652-271 3590/06/17 potassium, serum 4.9 mmol/L 3.5-5.2 chloride, serum [...] mg/dL Encounters Code Encounter Date Provider Facility CPT-26543 Level 4 Est. Patient 14:52:45 VENEER PRESS OPERATOR Baltazar Childers MD [facility] CPT-36775 Level 4 Est. Patient 14:18:34 VENEER PRESS OPERATOR Baltazar Childers MD [facility] CPT-61751 Level 4 Est. Patient 15:18:29 CDT Baltazar Childers MD [facility] CPT-74653 Level 3 Est. Patient 12:45:34 CDT Baltazar Childers MD [facility] CPT-20342 Level 3 Est. Patient 10:10:11 CDT Baltazar Childers MD [facility] CPT-51731 Level 3 Est. Patient 14:07:50 CDT Baltazar Childers MD [facility] CPT-11159 Level 4 Est. Patient 12:26:10 VENEER PRESS OPERATOR Baltazar Childers MD [facility] CPT-20775 Level 4 Est. Patient 14:45:38 CDT Baltazar Childers MD [facility] CPT-29716 Level 4 New Patient 12:30:48 CDT Baltazar hinton MD [facility] Procedures Code Procedure Name Date Entry Date Standard Desc ription CPT-13960 First Vx Component - Ix admi n via ID IM or jet inj without physician counseling 15:17:19 VENEER PRESS OPERATOR CPT-80580 Pneumovax 15:17:19 VENEER PRESS OPERATOR CPT-76550 Pneumovax 14:52:45 VENEER PRESS OPERATOR CPT-39656 Venipuncture Draw Fee 14:06:30 VENEER PRESS OPERATOR CPT-000 Give Appropriate Flu Vaccine 14:18:34 VENEER PRESS OPERATOR 2 CPT-05912 Administration single or combination vac cine inc oral 14:46:00 VENEER PRESS OPERATOR CPT-61431 Influenza split virus > age 3 14:46:00 VENEER PRESS OPERATOR CPT-OV Office Visit 19:13:16 CDT CPT-73516 Zostavax 18:41:56 CDT CPT-93018 Administration single or combination vac cine inc oral 12:56:39 CDT CPT-47452 Zoster Vaccine (Zostavax) 12:56:39 CDT 2012 CPT-06380 Venipuncture Draw Fee 10:58:57 CDT CPT-40667 Sono pelvis non OB uterus ovaries cervix 17:45:04 CDT CPT-22557 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
--- OUTSIDE RECORDS SUMMARY | 2019-10-27 13:49 | XMS REPORT | Clinical Summary ---
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 Thomas [employer] Benign neoplasm of colon PERIPHERAL NEUROPATHY 356.9 [...] y atherosclerosis of unspecified type of vessel, [place] [...] MISC Test twice a day LANCET S 17119830417 Active Baltazar Childers MD Active TRUEDRAW LANCING DEVICE MISC Test twice a day L ANCET DEVICES 83943131989 Active Baltazar Childers MD Active TRUETRACK TEST STRP Test twice a day GLUCOSE BLOO D 82623262042 Active Baltazar Childers MD Active TRUETRACK BLOOD GLUCOSE W/DEVICE KIT Test twice a day BLOOD GLUCOSE MONITORING SUPPL 52167533106 Active Bella Suarez [employer] Active HYDROCODONE-ACETAMINOPHEN 7.5-325 MG TABS Take 1 tab every 6-8 hour s PRN HYDROCODONE-ACETAMINOPHEN 19986623855 Active Baltazar Childers MD Active NORTRIPTYLINE HCL 50 MG CAPS 1 every night for neuropathy 4 NORTRIPTYLINE HCL 47449215878 Active Baltazar Childers MD Acti ve GABAPENTIN 300 MG CAPS 1 three times a day GABAPE NTIN 75995514530 Active Baltazar Childers MD Active GABAPENTIN 300 MG CAPS 1 po qd x 2 days, then 1 po BID x 2 d ays, then 1 po TID GABAPENTIN 05673498454 No Longer Active Baltazar silverman MD Active TRAMADOL HCL 50 MG TABS 1 twice a day as needed for pain TRAMADOL HCL 60066358055 Active Baltazar Childesr MD Active NAPROXEN 500 MG TABS 1 tablet by mouth twice daily NAPROXEN 29824557863 No Longer Active Baltazar Childers MD Active PROAIR HFA 108 (90 BASE) MCG/ACT AERS 2 puffs four times a d ay as needed ALBUTEROL SULFATE 03597801962 Active Baltazar Childers MD Active DEPO-TESTOSTERONE 200 MG/ML OIL as directed RUFINO TOSTERONE CYPIONATE 32643727513 No Longer Active Baltazar Childers MD Active LIPITOR 20 MG TABS Take one by mouth daily in evening ATORVASTATIN CALCIUM 77312055121 No Longer Active Baltazar Childers MD Activ e CRESTOR 10 MG TABS 1 by mouth every day R OSUVASTATIN CALCIUM 64604790320 No Longer Active Baltazar Childers MD Activ e PHENTERMINE HCL 37.5 MG TABS Take one by mouth daily 2 PHENTERMINE HCL 89183130971 No Longer Active Baltazar Childers MD Activ e ROBAXIN-750 750 MG TABS Take one by mouth daily ME THOCARBAMOL 68933766571 Active Baltazar Childers MD Active TIZANIDINE HCL 4 MG TABS 1 daily as needed for muscle spasm 2011 TIZANIDINE HCL 96684451851 No Longer Active Dawna Salazar RN Active [employer] ULTRA BLUE STRP Test twice a day GLUCO SE BLOOD 16455870965 Active Baltazar Childers MD Active [id number] 50-325-40 MG TABS 1 four time s a day as needed for heacache [id number] 84852070021 Active Baltazar Childers MD Active SUMATRIPTAN SUCCINATE 100 MG TABS 1 tablet by mouth at onset of migraine as needed SUMATRIPTAN SUCCINATE 01998815415 Active Baltazar barron MD Active LORATADINE 10 MG TABS Take one by mouth daily LORATADINE 81051227049 Active Baltazar Childers MD Active FUROSEMIDE 40 MG TABS Take one by mouth daily FUROSEMIDE 61107290496 Active Baltazar Childers MD Active LISINOPRIL 20 MG TABS Take one by mouth daily at bedtime LISINOPRIL 07660934758 Active Baltazar Childers MD Active OMEPRAZOLE 20 MG CPDR Take one by mouth daily OMEPRAZOLE 63703846165 Active Baltazar Childers MD Active HYDROXYZINE HCL 25 MG TABS Take one by mouth daily HYDROXYZINE HCL 29509364420 Active Baltazar Childers MD Active GLIPIZIDE 10 MG TABS 1 tablet by mouth twice daily GLIPIZIDE 63191103978 Active Baltazar Childers MD Active ALPRAZOLAM 1 MG TABS 1 tablet by mouth daily at bedtime for restles s leg ALPRAZOLAM 33586762735 Active Baltazar Childers MD Active METFORMIN HCL 1000 MG TABS Take one by mouth twice daily METFORMIN HCL 01203323330 Active Baltazar Childers MD Active TIZANIDINE HCL 4 MG TABS 1 daily as needed for muscle spasm 2011 TIZANIDINE HCL 4 MG TABS 277602 TIZANIDINE HCL Inactiv e PHENTERMINE HCL 37.5 MG TABS Take one by mouth daily 2 PHENTERMINE HCL 37.5 MG TABS 995309 PHENTERMINE HCL Inactive CRESTOR 10 MG TABS 1 by mouth every day C RESTOR 10 MG TABS ROSUVASTATIN CALCIUM Inactive LIPITOR 20 MG TABS Take one by mouth daily in evening LIPITOR 20 MG TABS 641454 ATORVASTATIN CALCIUM Inactive DEPO-TESTOSTERONE 200 MG/ML OIL as directed 8 DEPO-TESTOSTERONE 200 MG/ML OIL 419735 TESTOSTERONE CYPIONATE Inactive NAPROXEN 500 MG TABS 1 tablet by mouth twice daily 201 07/27/22 NAPROXEN 500 MG TABS 649002 NAPROXEN Inactive GABAPENTIN 300 MG CAPS 1 po qd x 2 days, then 1 po BID x 2 d ays, then 1 po TID GABAPENTIN 300 MG CAPS 587855 GABAPENTIN Inact amie Immunizations Vaccine Administration Date Value Standard Floyd cription pneumococcal immunization administered Pneumovax 23 [CVX33] pneumococcal polysaccharide vaccine, 23 valent Seasonal influenza vaccine, injectable, containing preservative, for > 3 years old (Afluria, FluLaval, Fluzone, Fluvirin, Fluarix, Agriflu(>= 18 yo)) Fluzone (>3 yrs.) [[id number]] Influenza, seasonal, inject able Seasonal influenza vaccine, injectable, containing preservative, for > 3 years old (Afluria, FluLaval, Fluzone, Fluvirin, Fluarix, Agriflu(>= 18 yo)) Fluzone (>3 yrs.) [VUA200] Influenza, seasonal, inject able Vital Signs Date [...] Panel - Chemistry sodium, serum 139 mmol/L 112-802 0219/01/20 potassium, serum 5.3 mmol/L 3.5-5.2 chloride, serum [...] mg/g mg/g{creat} 0-29 cholesterol, serum 319 mg/dL 869-687 8916/08/21 triglyceride, serum, fasting 546 mg/dL 30-200 HDL cholesterol, serum 39 mg/dL 32-96 LDL cholesterol, serum 167.00 mg/dL 5.00-130.00 hemoglobin A1C, blood, as % of total hemoglobin 7.7 % 4.3-6.0 sodium, serum 138 mmol/L 959-830 5083/08/21 potassium, serum 4.3 mmol/L 3.5-5.2 chloride, serum [...] 0-19 Encounters Code Encounter Date Provider Facility CPT-47403 Level 4 Est. Patient 14:15:19 CDT Baltazar Childers MD [facility] CPT-13350 Level 4 Est. Patient 12:20:13 CDT Baltazar Childers MD [facility] CPT-54016 Level 4 Est. Patient 14:52:45 CARDIO TECH Baltazar Childers MD [facility] CPT-09862 Level 4 Est. Patient 14:18:34 CARDIO TECH Baltazar Childers MD [facility] CPT-39094 Level 4 Est. Patient 15:18:29 CDT Baltazar Childers MD [facility] CPT-08188 Level 3 Est. Patient 12:45:34 CDT Baltazar Childers MD [facility] CPT-74151 Level 3 Est. Patient 10:10:11 CDT Baltazar Childers MD [facility] CPT-09221 Level 3 Est. Patient 14:07:50 CDT Balatzar Childers MD [facility] CPT-77363 Level 4 Est. Patient 12:26:10 CARDIO TECH Baltazar Childers MD [facility] CPT-62362 Level 4 Est. Patient 14:45:38 CDT Baltazar Childers MD [facility] CPT-05960 Level 4 New Patient 12:30:48 CDT Baltazar hinton MD [facility] Procedures Code Procedure Name Date Entry Date Standard Desc ription CPT-85368 Venipuncture Draw Fee 12:10:27 CARDIO TECH CPT-41719 Fluzone Quadrivalent Intramuscular Suspe nsion 0.5 ML 10:49:13 CDT CPT-19528 First Vx Component - Ix admi n via ID IM or jet inj without physician counseling 15:17:19 CARDIO TECH CPT-62477 Pneumovax 23 15:17:19 CARDIO TECH CPT-13582 Pneumovax 14:52:45 CARDIO TECH CPT-72211 Venipuncture Draw Fee 14:06:30 CARDIO TECH CPT-000 Give Appropriate Flu Vaccine 14:18:34 CARDIO TECH 2 CPT-58508 Administration single or combination vac cine inc oral 14:46:00 CARDIO TECH CPT-67679 Influenza split virus > age 3 14:46:00 CARDIO TECH CPT-OV Office Visit 19:13:16 CDT CPT-53693 Zostavax 18:41:56 CDT CPT-18098 Administration single or combination vac cine inc oral 12:56:39 CDT CPT-89869 Zoster Vaccine (Zostavax) 12:56:39 CDT 2012 CPT-45939 Venipuncture Draw Fee 10:58:57 CDT CPT-24032 Sono pelvis non OB uterus ovaries cervix 17:45:04 CDT CPT-66053 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
--- OUTSIDE RECORDS SUMMARY | 2019-10-27 13:50 | XMS REPORT | Clinical Summary ---
Author Author Admin, [facility] Address Unknown Phone Allergies, Adverse [...] MD Anemia, unspecified RENAL INSUFFICIENCY 593.9 Active Blatazar bynum MD Unspecified disorder of kidney and ureter CAD 414.00 Active Gladys Yazmin Coronar y atherosclerosis of unspecified type of vessel, tribe [...] tab every 6-8 hour s PRN HYDROCODONE-ACETAMINOPHEN 56791563998 Active Sergio Crabtree DO Active NORTRIPTYLINE HCL 50 MG CAPS 1 every night for neuropathy 4 NORTRIPTYLINE HCL 12197044573 Active Baltazar Childers MD Acti ve GABAPENTIN 300 MG CAPS 1 three times a day GABAPE NTIN 01138892642 Active Baltazar Childers MD Active GABAPENTIN 300 MG CAPS 1 po qd x 2 days, then 1 po BID x 2 d ays, then 1 po TID GABAPENTIN 48549595974 No Longer Active Baltazar silverman MD Active TRAMADOL HCL 50 MG TABS 1 twice a day as needed for pain TRAMADOL HCL 45636139646 Active Baltazar Childers MD Active NAPROXEN 500 MG TABS 1 tablet by mouth twice daily NAPROXEN 52479836086 No Longer Active Baltazar Childers MD Active PROAIR HFA 108 (90 BASE) MCG/ACT AERS 2 puffs four times a d ay as needed ALBUTEROL SULFATE 64660161958 Active Baltazar Childers MD Active DEPO-TESTOSTERONE 200 MG/ML OIL as directed RUFINO TOSTERONE CYPIONATE 82857114504 No Longer Active Baltazar Childers MD Active LIPITOR 20 MG TABS Take one by mouth daily in evening ATORVASTATIN CALCIUM 65148380429 No Longer Active Baltazar Childers MD Activ e CRESTOR 10 MG TABS 1 by mouth every day R OSUVASTATIN CALCIUM 05007091047 No Longer Active Baltazar Childers MD Activ e PHENTERMINE HCL 37.5 MG TABS Take one by mouth daily 2 PHENTERMINE HCL 66021100004 No Longer Active Baltazar Childers MD Activ e ROBAXIN-750 750 MG TABS Take one by mouth daily ME THOCARBAMOL 69657195214 Active Baltazar Childers MD Active TIZANIDINE HCL 4 MG TABS 1 daily as needed for muscle spasm 2011 TIZANIDINE HCL 84009059163 No Longer Active Dawna Salazar RN Active [employer] ULTRA BLUE STRP Test twice a day GLUCO SE BLOOD 93927954309 Active Baltazar Childers MD Active [id number]-LOSCBIJC 50-325-40 MG TABS 1 four time s a day as needed for heacache [id number] 41050537985 Active Baltazar Childers MD Active SUMATRIPTAN SUCCINATE 100 MG TABS 1 tablet by mouth at onset of migraine as needed SUMATRIPTAN SUCCINATE 81908895755 Active Shireen Miller APRN Active LORATADINE 10 MG TABS Take one by mouth daily LORATADINE 10495655263 Active Brad Hughes Active FUROSEMIDE 40 MG TABS Take one by mouth daily FUROSEMIDE 79324367444 Active Shireen Miller APRN Active LISINOPRIL 20 MG TABS Take one by mouth daily at bedtime LISINOPRIL 21276475048 Active Shireen Miller APRN Active OMEPRAZOLE 20 MG CPDR Take one by mouth daily OMEPRAZOLE 78550426250 Active Shireen Miller APRN Active HYDROXYZINE HCL 25 MG TABS Take one by mouth daily HYDROXYZINE HCL 77531941143 Active Shireen Miller APRN Active GLIPIZIDE 10 MG TABS 1 tablet by mouth twice daily GLIPIZIDE 08285395307 Active Shireen Miller APRN Active ALPRAZOLAM 1 MG TABS 1 tablet by mouth daily at bedtime for restles s leg ALPRAZOLAM 41434767840 Active Baltazar Childers MD Active METFORMIN HCL 1000 MG TABS Take one by mouth twice daily METFORMIN HCL 10747650429 Active Shireen Miller APRN Active TIZANIDINE HCL 4 MG TABS 1 daily as needed for muscle spasm 2011 TIZANIDINE HCL 4 MG TABS 878627 TIZANIDINE HCL Inactiv e PHENTERMINE HCL 37.5 MG TABS Take one by mouth daily 2 PHENTERMINE HCL 37.5 MG TABS 541722 PHENTERMINE HCL Inactive CRESTOR 10 MG TABS 1 by mouth every day C RESTOR 10 MG TABS ROSUVASTATIN CALCIUM Inactive LIPITOR 20 MG TABS Take one by mouth daily in evening LIPITOR 20 MG TABS 254753 ATORVASTATIN CALCIUM Inactive DEPO-TESTOSTERONE 200 MG/ML OIL as directed 8 DEPO-TESTOSTERONE 200 MG/ML OIL 580109 TESTOSTERONE CYPIONATE Inactive NAPROXEN 500 MG TABS 1 tablet by mouth twice daily 201 07/27/22 NAPROXEN 500 MG TABS 550989 NAPROXEN Inactive GABAPENTIN 300 MG CAPS 1 po qd x 2 days, then 1 po BID x 2 d ays, then 1 po TID GABAPENTIN 300 MG CAPS 855996 GABAPENTIN Inact amie Immunizations Vaccine Administration Date Value Standard Floyd cription pneumococcal immunization administered Pneumovax 23 [CVX33] pneumococcal polysaccharide vaccine, 23 valent Seasonal influenza vaccine, injectable, containing preservative, for > 3 years old (Afluria, FluLaval, Fluzone, Fluvirin, Fluarix, Agriflu(>= 18 yo)) Fluzone (>3 yrs.) [GCJ821] Influenza, seasonal, inject able Seasonal influenza vaccine, injectable, containing preservative, for > 3 years old (Afluria, FluLaval, Fluzone, Fluvirin, Fluarix, Agriflu(>= 18 yo)) Fluzone (>3 yrs.) [AUV067] Influenza, seasonal, inject able Vital Signs Date [...] C - Chemistry sodium, serum 140 mmol/L 666-209 5523/02/26 potassium, serum 5.3 mmol/L 3.5-5.2 chloride, serum [...] 0.39 mg/dL 0.00-1.00 cholesterol, serum 345 mg/dL 231-453 5391/08/26 triglyceride, serum, fasting 635 mg/dL 30-200 HDL [...] Panel - Chemistry sodium, serum 136 mmol/L 849-122 2945/01/06 potassium, serum 5.1 mmol/L 3.5-5.2 chloride, serum [...] Panel - Chemistry sodium, serum 139 mmol/L 097-998 2902/08/26 potassium, serum 5.8 mmol/L 3.5-5.2 chloride, serum 98 mmol/L 98-107 carbon dioxide, venous blood 33.0 mmol/L 21.0-32 .0 blood glucose 107 mg/dL 65-110 urea nitrogen, blood 26 mg/dL 7-18 creatinine, serum 1.80 mg/dL 0.60-1.30 calcium, serum 9.3 mg/dL 8.5-10.1 sodium, serum 138 mmol/L 586-021 1460/06/17 potassium, serum 4.9 mmol/L 3.5-5.2 chloride, serum [...] 5.0-8.5 glucose, urine, semiquantitative Negative Neg ative ketones, [...] mg/dL Encounters Code Encounter Date Provider Facility CPT-07168 Level 4 Est. Patient 14:52:45 [employer] Baltazar Childers MD [facility] CPT-26140 Level 4 Est. Patient 14:18:34 [employer] Baltazar Childers MD [facility] CPT-56301 Level 4 Est. Patient 15:18:29 CDT Baltazar Childers MD [facility] CPT-18600 Level 3 Est. Patient 12:45:34 CDT Baltazar Childers MD [facility] CPT-44228 Level 3 Est. Patient 10:10:11 CDT Baltazar Childers MD [facility] CPT-75000 Level 3 Est. Patient 14:07:50 CDT Baltazar Childers MD [facility] CPT-30849 Level 4 Est. Patient 12:26:10 [employer] Baltazar Childers MD [facility] CPT-41480 Level 4 Est. Patient 14:45:38 CDT Baltazar Childers MD [facility] CPT-64428 Level 4 New Patient 12:30:48 CDT Baltazar hinton MD [facility] Procedures Code Procedure Name Date Entry Date Standard Desc ription CPT-04598 First Vx Component - Ix admi n via ID IM or jet inj without physician counseling 15:17:19 [employer] CPT-53846 Pneumovax 23 15:17:19 [employer] CPT-15783 Pneumovax 14:52:45 [employer] CPT-96999 Venipuncture Draw Fee 14:06:30 [employer] CPT-000 Give Appropriate Flu Vaccine 14:18:34 [employer] 2 CPT-90536 Administration single or combination vac cine inc oral 14:46:00 [employer] CPT-16558 Influenza split virus > age 3 14:46:00 [employer] CPT-OV Office Visit 19:13:16 CDT CPT-52624 Zostavax 18:41:56 CDT CPT-30523 Administration single or combination vac cine inc oral 12:56:39 CDT CPT-99261 Zoster Vaccine (Zostavax) 12:56:39 CDT 2012 CPT-21422 Venipuncture Draw Fee 10:58:57 CDT CPT-67293 Sono pelvis non OB uterus ovaries cervix 17:45:04 CDT CPT-21237 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
--- OUTSIDE RECORDS SUMMARY | 2019-10-27 13:50 | XMS REPORT | Clinical Summary ---
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 Benign neoplasm of colon PERIPHERAL NEUROPATHY 356.9 [...] y atherosclerosis of unspecified type of vessel, [place] or graft OTH NONSPC ABN FINDNG RAD&OTH [...] MISC Test twice a day LANCET S 48354354844 Active Baltazar Childers MD Active TRUEDRAW LANCING DEVICE MISC Test twice a day L ANCET DEVICES 70280856799 Active Baltazar Childers MD Active TRUETRACK TEST STRP Test twice a day GLUCOSE BLOO D 90905285294 Active Baltazar Childers MD Active TRUETRACK BLOOD GLUCOSE W/DEVICE KIT Test twice a day BLOOD GLUCOSE MONITORING SUPPL 07455065822 Active Baltazar Childers MD Activ e HYDROCODONE-ACETAMINOPHEN 7.5-325 MG TABS Take 1 tab every 6-8 hour s PRN HYDROCODONE-ACETAMINOPHEN 16311353331 Active Baltazar Childers MD Active NORTRIPTYLINE HCL 50 MG CAPS 1 every night for neuropathy 4 NORTRIPTYLINE HCL 30676632420 Active Baltazar Childers MD Acti ve GABAPENTIN 300 MG CAPS 1 three times a day GABAPE NTIN 38747667532 Active Baltazar Childers MD Active GABAPENTIN 300 MG CAPS 1 po qd x 2 days, then 1 po BID x 2 d ays, then 1 po TID GABAPENTIN 99306650293 No Longer Active Baltazar silverman MD Active TRAMADOL HCL 50 MG TABS 1 twice a day as needed for pain TRAMADOL HCL 77558905206 Active Baltazar Childers MD Active NAPROXEN 500 MG TABS 1 tablet by mouth twice daily NAPROXEN 07183442289 No Longer Active Baltazar Childers MD Active PROAIR HFA 108 (90 BASE) MCG/ACT AERS 2 puffs four times a d ay as needed ALBUTEROL SULFATE 43697012576 Active Baltazar Childers MD Active DEPO-TESTOSTERONE 200 MG/ML OIL as directed RUFINO TOSTERONE CYPIONATE 56781625637 No Longer Active Baltazar Childers MD Active LIPITOR 20 MG TABS Take one by mouth daily in evening ATORVASTATIN CALCIUM 33046732618 No Longer Active Baltazar Childers MD Activ e CRESTOR 10 MG TABS 1 by mouth every day R OSUVASTATIN CALCIUM 15883500589 No Longer Active Baltazar Childers MD Activ e PHENTERMINE HCL 37.5 MG TABS Take one by mouth daily 2 PHENTERMINE HCL 69663893218 No Longer Active Baltazar Childers MD Activ e ROBAXIN-750 750 MG TABS Take one by mouth daily ME THOCARBAMOL 03806549189 Active Baltazar Childers MD Active TIZANIDINE HCL 4 MG TABS 1 daily as needed for muscle spasm 2011 TIZANIDINE HCL 77261899045 No Longer Active Dawna Salazar RN Active [employer] ULTRA BLUE STRP Test twice a day GLUCO SE BLOOD 61354350143 Active Baltazar Childers MD Active [id number] 50-325-40 MG TABS 1 four time s a day as needed for heacache [id number] 61967606854 Active Baltazar Childers MD Active SUMATRIPTAN SUCCINATE 100 MG TABS 1 tablet by mouth at onset of migraine as needed SUMATRIPTAN SUCCINATE 26502198383 Active Baltazar bynum MD Active LORATADINE 10 MG TABS Take one by mouth daily LORATADINE 94559202328 Active Baltazar Childers MD Active FUROSEMIDE 40 MG TABS Take one by mouth daily FUROSEMIDE 87106073737 Active Baltazar Childers MD Active LISINOPRIL 20 MG TABS Take one by mouth daily at bedtime LISINOPRIL 83935891660 Active Baltazar Childers MD Active OMEPRAZOLE 20 MG CPDR Take one by mouth daily OMEPRAZOLE 85823115919 Active Baltazar Childers MD Active HYDROXYZINE HCL 25 MG TABS Take one by mouth daily HYDROXYZINE HCL 39713090124 Active Baltazar Childers MD Active GLIPIZIDE 10 MG TABS 1 tablet by mouth twice daily GLIPIZIDE 92769777871 Active Baltazar Childers MD Active ALPRAZOLAM 1 MG TABS 1 tablet by mouth daily at bedtime for restles s leg ALPRAZOLAM 24462984709 Active Baltazar Childers MD Active METFORMIN HCL 1000 MG TABS Take one by mouth twice daily METFORMIN HCL 84842579662 Active Baltazar Childers MD Active TIZANIDINE HCL 4 MG TABS 1 daily as needed for muscle spasm 2011 TIZANIDINE HCL 4 MG TABS 693800 TIZANIDINE HCL Inactiv e PHENTERMINE HCL 37.5 MG TABS Take one by mouth daily 2 PHENTERMINE HCL 37.5 MG TABS 709476 PHENTERMINE HCL Inactive CRESTOR 10 MG TABS 1 by mouth every day C RESTOR 10 MG TABS ROSUVASTATIN CALCIUM Inactive LIPITOR 20 MG TABS Take one by mouth daily in evening LIPITOR 20 MG TABS 603654 ATORVASTATIN CALCIUM Inactive DEPO-TESTOSTERONE 200 MG/ML OIL as directed 8 DEPO-TESTOSTERONE 200 MG/ML OIL 495774 TESTOSTERONE CYPIONATE Inactive NAPROXEN 500 MG TABS 1 tablet by mouth twice daily 201 07/27/22 NAPROXEN 500 MG TABS 176876 NAPROXEN Inactive GABAPENTIN 300 MG CAPS 1 po qd x 2 days, then 1 po BID x 2 d ays, then 1 po TID GABAPENTIN 300 MG CAPS 762194 GABAPENTIN Inact amie Immunizations Vaccine Administration Date Value Standard Floyd cription pneumococcal immunization administered Pneumovax 23 [CVX33] pneumococcal polysaccharide vaccine, 23 valent Seasonal influenza vaccine, injectable, containing preservative, for > 3 years old (Afluria, FluLaval, Fluzone, Fluvirin, Fluarix, Agriflu(>= 18 yo)) Fluzone (>3 yrs.) [[id number]] Influenza, seasonal, inject able Seasonal influenza vaccine, injectable, containing preservative, for > 3 years old (Afluria, FluLaval, Fluzone, Fluvirin, Fluarix, Agriflu(>= 18 yo)) Fluzone (>3 yrs.) [[id number]] Influenza, seasonal, inject able Vital Signs Date Name Value Unit Range Description blood pressure, diastolic 68 mm[Hg] BP [place] blood pressure, systolic 100 mm[Hg] BP sys pulse rate E&M 93 /min Heart rate temperature E&M 98.0 [degF] Body temp erature weight E&M 229.8 [lb_av] Weight Measure d blood pressure, diastolic [...] weight E&M 231.13 [lb_av] Weight Measure d Diagnostic Results Date Name Value Unit Range Description Lab Report: Basic Metabolic Panel, HGBA1 C - Chemistry sodium, serum 140 mmol/L 218-271 3271/02/26 potassium, serum 5.3 mmol/L 3.5-5.2 chloride, serum [...] Panel - Chemistry sodium, serum 136 mmol/L 070-187 2545/01/06 potassium, serum 5.1 mmol/L 3.5-5.2 chloride, serum [...] mg/g mg/g{creat} 0-29 cholesterol, serum 319 mg/dL 424-763 9618/08/21 triglyceride, serum, fasting 546 mg/dL 30-200 HDL cholesterol, serum 39 mg/dL 32-96 LDL cholesterol, serum 167.00 mg/dL 5.00-130.00 hemoglobin A1C, blood, as % of total hemoglobin 7.7 % 4.3-6.0 sodium, serum 138 mmol/L 480-933 0938/08/21 potassium, serum 4.3 mmol/L 3.5-5.2 chloride, serum [...] mg/dL Encounters Code Encounter Date Provider Facility CPT-32884 Level 4 Est. Patient 14:15:19 CDT Baltazar Childers MD [facility] CPT-50413 Level 4 Est. Patient 12:20:13 CDT Baltazar Childers MD [facility] CPT-00385 Level 4 Est. Patient 14:52:45 READING INTERVENTIONIST Baltazar Childers MD [facility] CPT-94479 Level 4 Est. Patient 14:18:34 READING INTERVENTIONIST Baltazar Childers MD [facility] CPT-44858 Level 4 Est. Patient 15:18:29 CDT Baltazar Childers MD [facility] CPT-63110 Level 3 Est. Patient 12:45:34 CDT Baltazar Childers MD [facility] CPT-54534 Level 3 Est. Patient 10:10:11 CDT Baltazar Childers MD [facility] CPT-93867 Level 3 Est. Patient 14:07:50 CDT Baltazar Childers MD [facility] CPT-86526 Level 4 Est. Patient 12:26:10 READING INTERVENTIONIST Baltazar Childers MD [facility] CPT-64021 Level 4 Est. Patient 14:45:38 CDT Baltazar Childers MD [facility] CPT-18612 Level 4 New Patient 12:30:48 CDT Baltazar hinton MD [facility] Procedures Code Procedure Name Date Entry Date Standard Desc ription CPT-61337 Fluzone Quadrivalent Intramuscular Suspe nsion 0.5 ML 10:49:13 CDT CPT-13635 First Vx Component - Ix admi n via ID IM or jet inj without physician counseling 15:17:19 READING INTERVENTIONIST CPT-50223 Pneumovax 23 15:17:19 READING INTERVENTIONIST CPT-37531 Pneumovax 14:52:45 READING INTERVENTIONIST CPT-05511 Venipuncture Draw Fee 14:06:30 READING INTERVENTIONIST CPT-000 Give Appropriate Flu Vaccine 14:18:34 READING INTERVENTIONIST 2 CPT-49078 Administration single or combination vac cine inc oral 14:46:00 READING INTERVENTIONIST CPT-07354 Influenza split virus > age 3 14:46:00 READING INTERVENTIONIST CPT-OV Office Visit 19:13:16 CDT CPT-11195 Zostavax 18:41:56 CDT CPT-65302 Administration single or combination vac cine inc oral 12:56:39 CDT CPT-83121 Zoster Vaccine (Zostavax) 12:56:39 CDT 2012 CPT-87214 Venipuncture Draw Fee 10:58:57 CDT CPT-67094 Sono pelvis non OB uterus ovaries cervix 17:45:04 CDT CPT-23628 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
--- OUTSIDE RECORDS SUMMARY | 2019-10-27 13:50 | XMS REPORT | Clinical Summary ---
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 Benign neoplasm of colon PERIPHERAL NEUROPATHY [...] y atherosclerosis of unspecified type of vessel, [place] or graft OTH NONSPC ABN FINDNG RAD&OTH [...] MISC Test twice a day LANCET S 43913697875 Active Baltazar Childers MD Active TRUEDRAW LANCING DEVICE MISC Test twice a day L ANCET DEVICES 08669559123 Active Baltazar Childers MD Active TRUETRACK TEST STRP Test twice a day GLUCOSE BLOO D 27899687625 Active Baltazar Childers MD Active TRUETRACK BLOOD GLUCOSE W/DEVICE KIT Test twice a day BLOOD GLUCOSE MONITORING SUPPL 30928068289 Active Bella Suarez WEB DEVELOPER Active HYDROCODONE-ACETAMINOPHEN 7.5-325 MG TABS Take 1 tab every 6-8 hour s PRN HYDROCODONE-ACETAMINOPHEN 48380288481 Active Baltazar Childers MD Active NORTRIPTYLINE HCL 50 MG CAPS 1 every night for neuropathy 4 NORTRIPTYLINE HCL 41207299381 Active Baltazar Childers MD Acti ve GABAPENTIN 300 MG CAPS 1 three times a day GABAPE NTIN 47992926796 Active Baltazar Childers MD Active GABAPENTIN 300 MG CAPS 1 po qd x 2 days, then 1 po BID x 2 d ays, then 1 po TID GABAPENTIN 23610311216 No Longer Active Baltazar silverman MD Active TRAMADOL HCL 50 MG TABS 1 twice a day as needed for pain TRAMADOL HCL 07074861459 Active Baltazar Childers MD Active NAPROXEN 500 MG TABS 1 tablet by mouth twice daily NAPROXEN 56503084846 No Longer Active Baltazar Childers MD Active PROAIR HFA 108 (90 BASE) MCG/ACT AERS 2 puffs four times a d ay as needed ALBUTEROL SULFATE 75332298756 Active Baltazar Childers MD Active DEPO-TESTOSTERONE 200 MG/ML OIL as directed RUFINO TOSTERONE CYPIONATE 43821063993 No Longer Active Baltazar Childers MD Active LIPITOR 20 MG TABS Take one by mouth daily in evening ATORVASTATIN CALCIUM 05113651600 No Longer Active Baltazar Childers MD Activ e CRESTOR 10 MG TABS 1 by mouth every day R OSUVASTATIN CALCIUM 43788847626 No Longer Active Baltazar Childers MD Activ e PHENTERMINE HCL 37.5 MG TABS Take one by mouth daily 2 PHENTERMINE HCL 75212169824 No Longer Active Baltazar Childers MD Activ e ROBAXIN-750 750 MG TABS Take one by mouth daily ME THOCARBAMOL 22573964291 Active Baltazar Childers MD Active TIZANIDINE HCL 4 MG TABS 1 daily as needed for muscle spasm 2011 TIZANIDINE HCL 35252825506 No Longer Active Dawna Salazar RN Active [employer] ULTRA BLUE STRP Test twice a day GLUCO SE BLOOD 23410118923 Active Baltazar Childers MD Active [id number] 50-325-40 MG TABS 1 four time s a day as needed for heacache NVRTAMXQDZ-[id number] 04686896717 Active Baltazar Childers MD Active SUMATRIPTAN SUCCINATE 100 MG TABS 1 tablet by mouth at onset of migraine as needed SUMATRIPTAN SUCCINATE 92843617026 Active Baltazar barron MD Active LORATADINE 10 MG TABS Take one by mouth daily LORATADINE 84049510454 Active Baltazar Childers MD Active FUROSEMIDE 40 MG TABS Take one by mouth daily FUROSEMIDE 52065407946 Active Baltazar Childers MD Active LISINOPRIL 20 MG TABS Take one by mouth daily at bedtime LISINOPRIL 46752452664 Active Baltazar Childers MD Active OMEPRAZOLE 20 MG CPDR Take one by mouth daily OMEPRAZOLE 79723698076 Active Baltazar Childers MD Active HYDROXYZINE HCL 25 MG TABS Take one by mouth daily HYDROXYZINE HCL 03209227880 Active Baltazar Childers MD Active GLIPIZIDE 10 MG TABS 1 tablet by mouth twice daily GLIPIZIDE 86181365196 Active Baltazar Childers MD Active ALPRAZOLAM 1 MG TABS 1 tablet by mouth daily at bedtime for restles s leg ALPRAZOLAM 65299957910 Active Baltazar Childers MD Active METFORMIN HCL 1000 MG TABS Take one by mouth twice daily METFORMIN HCL 48713641728 Active Baltazar Childers MD Active TIZANIDINE HCL 4 MG TABS 1 daily as needed for muscle spasm 2011 TIZANIDINE HCL 4 MG TABS 365293 TIZANIDINE HCL Inactiv e PHENTERMINE HCL 37.5 MG TABS Take one by mouth daily 2 PHENTERMINE HCL 37.5 MG TABS 540774 PHENTERMINE HCL Inactive CRESTOR 10 MG TABS 1 by mouth every day C RESTOR 10 MG TABS ROSUVASTATIN CALCIUM Inactive LIPITOR 20 MG TABS Take one by mouth daily in evening LIPITOR 20 MG TABS 426796 ATORVASTATIN CALCIUM Inactive DEPO-TESTOSTERONE 200 MG/ML OIL as directed 8 DEPO-TESTOSTERONE 200 MG/ML OIL 230994 TESTOSTERONE CYPIONATE Inactive NAPROXEN 500 MG TABS 1 tablet by mouth twice daily 201 07/27/22 NAPROXEN 500 MG TABS 950397 NAPROXEN Inactive GABAPENTIN 300 MG CAPS 1 po qd x 2 days, then 1 po BID x 2 d ays, then 1 po TID GABAPENTIN 300 MG CAPS 608738 GABAPENTIN Inact amie Immunizations Vaccine Administration Date Value Standard Floyd cription pneumococcal immunization administered Pneumovax 23 [CVX33] pneumococcal polysaccharide vaccine, 23 valent Seasonal influenza vaccine, injectable, containing preservative, for > 3 years old (Afluria, FluLaval, Fluzone, Fluvirin, Fluarix, Agriflu(>= 18 yo)) Fluzone (>3 yrs.) [[id number]] Influenza, seasonal, inject able Seasonal influenza vaccine, injectable, containing preservative, for > 3 years old (Afluria, FluLaval, Fluzone, Fluvirin, Fluarix, Agriflu(>= 18 yo)) Fluzone (>3 yrs.) [[id number]] Influenza, seasonal, inject able Vital Signs Date [...] C - Chemistry sodium, serum 140 mmol/L 405-703 4104/02/26 potassium, serum 5.3 mmol/L 3.5-5.2 chloride, serum [...] count 273 10^3/MM^3 10*3/mm3 142-424 Lab Report: MICROALBUMIN, Lipid Panel, H GBA1C, Comp. Metabolic Panel - Chemistry albumin/creatinine ratio, urine 30 - 300 mg/g mg/g{creat} 0-29 cholesterol, serum 319 mg/dL 807-521 4759/08/21 triglyceride, serum, fasting 546 mg/dL 30-200 HDL cholesterol, serum 39 mg/dL 32-96 LDL cholesterol, serum 167.00 mg/dL 5.00-130.00 hemoglobin A1C, blood, as % of total hemoglobin 7.7 % 4.3-6.0 sodium, serum 138 mmol/L 913-033 1171/08/21 potassium, serum 4.3 mmol/L 3.5-5.2 chloride, serum [...] mg/dL Encounters Code Encounter Date Provider Facility CPT-05238 Level 4 Est. Patient 14:15:19 CDT Baltazar Childers MD [facility] CPT-23675 Level 4 Est. Patient 12:20:13 CDT Baltazar Childers MD [facility] CPT-26274 Level 4 Est. Patient 14:52:45 PECAN SHELLER Baltazar Childers MD [facility] CPT-55834 Level 4 Est. Patient 14:18:34 PECAN SHELLER Baltazar Childers MD [facility] CPT-20734 Level 4 Est. Patient 15:18:29 CDT Baltazar Childers MD [facility] CPT-01038 Level 3 Est. Patient 12:45:34 CDT Baltazar Childers MD [facility] CPT-75434 Level 3 Est. Patient 10:10:11 CDT Baltazar Childers MD [facility] CPT-32790 Level 3 Est. Patient 14:07:50 CDT Baltazar Childers MD [facility] CPT-75010 Level 4 Est. Patient 12:26:10 PECAN SHELLER Baltazar Childers MD [facility] CPT-48998 Level 4 Est. Patient 14:45:38 CDT Baltazar Childers MD [facility] CPT-36374 Level 4 New Patient 12:30:48 CDT Baltazar hinton MD [facility] Procedures Code Procedure Name Date Entry Date Standard Desc ription CPT-99624 Venipuncture Draw Fee 12:10:27 PECAN SHELLER CPT-01016 Fluzone Quadrivalent Intramuscular Suspe nsion 0.5 ML 10:49:13 CDT CPT-83736 First Vx Component - Ix admi n via ID IM or jet inj without physician counseling 15:17:19 PECAN SHELLER CPT-52311 Pneumovax 23 15:17:19 PECAN SHELLER CPT-75654 Pneumovax 14:52:45 PECAN SHELLER CPT-23097 Venipuncture Draw Fee 14:06:30 PECAN SHELLER CPT-000 Give Appropriate Flu Vaccine 14:18:34 PECAN SHELLER 2 CPT-37667 Administration single or combination vac cine inc oral 14:46:00 PECAN SHELLER CPT-55438 Influenza split virus > age 3 14:46:00 PECAN SHELLER CPT-OV Office Visit 19:13:16 CDT CPT-25237 Zostavax 18:41:56 CDT CPT-24428 Administration single or combination vac cine inc oral 12:56:39 CDT CPT-91860 Zoster Vaccine (Zostavax) 12:56:39 CDT 2012 CPT-10410 Venipuncture Draw Fee 10:58:57 CDT CPT-76382 Sono pelvis non OB uterus ovaries cervix 17:45:04 CDT CPT-90523 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
--- OUTSIDE RECORDS SUMMARY | 2019-10-27 13:50 | XMS REPORT | Clinical Summary ---
[...] libido COLON POLYPS 211.3 Resolved Lolis Thomas [employer] Benign neoplasm of colon PERIPHERAL NEUROPATHY 356.9 [...] MISC Test twice a day LANCET S 98791826836 Active Baltazar Childers MD Active TRUEDRAW LANCING DEVICE MISC Test twice a day L ANCET DEVICES 20568357361 Active Baltazar Childers MD Active TRUETRACK TEST STRP Test twice a day GLUCOSE BLOO D 12531577286 Active Baltazar Childers MD Active TRUETRACK BLOOD GLUCOSE W/DEVICE KIT Test twice a day BLOOD GLUCOSE MONITORING SUPPL 01273552356 Active Bella Yokum [employer] Active HYDROCODONE-ACETAMINOPHEN 7.5-325 MG TABS Take 1 tab every 6-8 hour s PRN HYDROCODONE-ACETAMINOPHEN 20425115836 Active Bella Yogeovanyum [employer] Active NORTRIPTYLINE HCL 50 MG CAPS 1 every night for neuropathy 4 NORTRIPTYLINE HCL 28025085262 Active Baltazar Childers MD Acti ve GABAPENTIN 300 MG CAPS 1 three times a day GABAPE NTIN 56191075820 Active Baltazar Childers MD Active GABAPENTIN 300 MG CAPS 1 po qd x 2 days, then 1 po BID x 2 d ays, then 1 po TID GABAPENTIN 86881012361 No Longer Active Baltazar silverman MD Active TRAMADOL HCL 50 MG TABS 1 twice a day as needed for pain TRAMADOL HCL 55076005497 Active Baltazar Childers MD Active NAPROXEN 500 MG TABS 1 tablet by mouth twice daily NAPROXEN 10149720546 No Longer Active Baltazar Childers MD Active PROAIR HFA 108 (90 BASE) MCG/ACT AERS 2 puffs four times a d ay as needed ALBUTEROL SULFATE 74960164434 Active Baltazar Childers MD Active DEPO-TESTOSTERONE 200 MG/ML OIL as directed RUFINO TOSTERONE CYPIONATE 00996510777 No Longer Active Baltazar Childers MD Active LIPITOR 20 MG TABS Take one by mouth daily in evening ATORVASTATIN CALCIUM 02775877040 No Longer Active Baltazar Childers MD Activ e CRESTOR 10 MG TABS 1 by mouth every day R OSUVASTATIN CALCIUM 31666363802 No Longer Active Baltazar Childers MD Activ e PHENTERMINE HCL 37.5 MG TABS Take one by mouth daily 2 PHENTERMINE HCL 35951841412 No Longer Active Baltazar Childers MD Activ e ROBAXIN-750 750 MG TABS Take one by mouth daily ME THOCARBAMOL 68796665782 Active Baltazar Childers MD Active TIZANIDINE HCL 4 MG TABS 1 daily as needed for muscle spasm 2011 TIZANIDINE HCL 31011779022 No Longer Active Dawna Salazar RN Active [employer] ULTRA BLUE STRP Test twice a day GLUCO SE BLOOD 84010519242 Active Baltazar Childers MD Active [id number]-[id number]-[id number] 50-325-40 MG TABS 1 four time s a day as needed for heacache WURKQPATDL-BHLO-GILEHZUX 94538133942 Active Baltazar Childers MD Active SUMATRIPTAN SUCCINATE 100 MG TABS 1 tablet by mouth at onset of migraine as needed SUMATRIPTAN SUCCINATE 67121019210 Active Baltazar barron MD Active LORATADINE 10 MG TABS Take one by mouth daily LORATADINE 05307531930 Active Baltazar Childers MD Active FUROSEMIDE 40 MG TABS Take one by mouth daily FUROSEMIDE 97589282212 Active Baltazar Childers MD Active LISINOPRIL 20 MG TABS Take one by mouth daily at bedtime LISINOPRIL 71273330346 Active Baltazar Childers MD Active OMEPRAZOLE 20 MG CPDR Take one by mouth daily OMEPRAZOLE 04682317005 Active Baltazar Childers MD Active HYDROXYZINE HCL 25 MG TABS Take one by mouth daily HYDROXYZINE HCL 35430462168 Active Baltazar Childers MD Active GLIPIZIDE 10 MG TABS 1 tablet by mouth twice daily GLIPIZIDE 67512827988 Active Baltazar Childers MD Active ALPRAZOLAM 1 MG TABS 1 tablet by mouth daily at bedtime for restles s leg ALPRAZOLAM 38507648632 Active Baltazar Childers MD Active METFORMIN HCL 1000 MG TABS Take one by mouth twice daily METFORMIN HCL 42725155933 Active Baltazar Childers MD Active TIZANIDINE HCL 4 MG TABS 1 daily as needed for muscle spasm 2011 TIZANIDINE HCL 4 MG TABS 438208 TIZANIDINE HCL Inactiv e PHENTERMINE HCL 37.5 MG TABS Take one by mouth daily 2 PHENTERMINE HCL 37.5 MG TABS 872342 PHENTERMINE HCL Inactive CRESTOR 10 MG TABS 1 by mouth every day C RESTOR 10 MG TABS ROSUVASTATIN CALCIUM Inactive LIPITOR 20 MG TABS Take one by mouth daily in evening LIPITOR 20 MG TABS 907121 ATORVASTATIN CALCIUM Inactive DEPO-TESTOSTERONE 200 MG/ML OIL as directed 8 DEPO-TESTOSTERONE 200 MG/ML OIL 431989 TESTOSTERONE CYPIONATE Inactive NAPROXEN 500 MG TABS 1 tablet by mouth twice daily 201 07/27/22 NAPROXEN 500 MG TABS 174952 NAPROXEN Inactive GABAPENTIN 300 MG CAPS 1 po qd x 2 days, then 1 po BID x 2 d ays, then 1 po TID GABAPENTIN 300 MG CAPS 618441 GABAPENTIN Inact amie Immunizations Vaccine Administration Date Value Standard Floyd cription pneumococcal immunization administered Pneumovax 23 [CVX33] pneumococcal polysaccharide vaccine, 23 valent Seasonal influenza vaccine, injectable, containing preservative, for > 3 years old (Afluria, FluLaval, Fluzone, Fluvirin, Fluarix, Agriflu(>= 18 yo)) Fluzone (>3 yrs.) [[id number]] Influenza, seasonal, inject able Seasonal influenza vaccine, injectable, containing preservative, for > 3 years old (Afluria, FluLaval, Fluzone, Fluvirin, Fluarix, Agriflu(>= 18 yo)) Fluzone (>3 yrs.) [[id number]] Influenza, seasonal, inject able Vital Signs Date [...] C - Chemistry sodium, serum 140 mmol/L 935-881 5232/02/26 potassium, serum 5.3 mmol/L 3.5-5.2 chloride, serum [...] Panel - Chemistry sodium, serum 136 mmol/L 376-735 6074/01/06 potassium, serum 5.1 mmol/L 3.5-5.2 chloride, serum [...] mg/g mg/g{creat} 0-29 cholesterol, serum 319 mg/dL 490-310 4006/08/21 triglyceride, serum, fasting 546 mg/dL 30-200 HDL cholesterol, serum 39 mg/dL 32-96 LDL cholesterol, serum 167.00 mg/dL 5.00-130.00 hemoglobin A1C, blood, as % of total hemoglobin 7.7 % 4.3-6.0 sodium, serum 138 mmol/L 397-530 5087/08/21 potassium, serum 4.3 mmol/L 3.5-5.2 chloride, serum [...] mg/dL Encounters Code Encounter Date Provider Facility CPT-11916 Level 4 Est. Patient 14:15:19 CDT Baltazar Childers MD [facility] CPT-99914 Level 4 Est. Patient 12:20:13 CDT Baltazar Childers MD [facility] CPT-36001 Level 4 Est. Patient 14:52:45 MACHINING MANAGER Baltazar Childers MD [facility] CPT-42832 Level 4 Est. Patient 14:18:34 MACHINING MANAGER Baltazar Childers MD [facility] CPT-13605 Level 4 Est. Patient 15:18:29 CDT Baltazar Childers MD [facility] CPT-31587 Level 3 Est. Patient 12:45:34 CDT Baltazar Childers MD [facility] CPT-21108 Level 3 Est. Patient 10:10:11 CDT Baltazar Childers MD [facility] CPT-25867 Level 3 Est. Patient 14:07:50 CDT Baltazar Childers MD [facility] CPT-28141 Level 4 Est. Patient 12:26:10 MACHINING MANAGER Baltazar Childers MD [facility] CPT-70509 Level 4 Est. Patient 14:45:38 CDT Baltazar Childers MD [facility] CPT-32684 Level 4 New Patient 12:30:48 CDT Baltazar hinton MD [facility] Procedures Code Procedure Name Date Entry Date Standard Desc ription CPT-54849 Fluzone Quadrivalent Intramuscular Suspe nsion 0.5 ML 10:49:13 CDT CPT-18114 First Vx Component - Ix admi n via ID IM or jet inj without physician counseling 15:17:19 MACHINING MANAGER CPT-46729 Pneumovax 15:17:19 MACHINING MANAGER CPT-65315 Pneumovax 14:52:45 MACHINING MANAGER CPT-42778 Venipuncture Draw Fee 14:06:30 MACHINING MANAGER CPT-000 Give Appropriate Flu Vaccine 14:18:34 MACHINING MANAGER 2 CPT-05333 Administration single or combination vac cine inc oral 14:46:00 MACHINING MANAGER CPT-27740 Influenza split virus > age 3 14:46:00 MACHINING MANAGER CPT-OV Office Visit 19:13:16 CDT CPT-33157 Zostavax 18:41:56 CDT CPT-02801 Administration single or combination vac cine inc oral 12:56:39 CDT CPT-83682 Zoster Vaccine (Zostavax) 12:56:39 CDT 2012 CPT-37822 Venipuncture Draw Fee 10:58:57 CDT CPT-72856 Sono pelvis non OB uterus ovaries cervix 17:45:04 CDT CPT-09659 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
--- OUTSIDE RECORDS SUMMARY | 2019-10-27 13:51 | XMS REPORT | Clinical Summary ---
Author Author Admin, Elba Lance [facility] [...] libido COLON POLYPS 211.3 Resolved Lolis Thomas [employer]LY[employer] Benign neoplasm of colon PERIPHERAL NEUROPATHY [...] y atherosclerosis of unspecified type of vessel, sleetmute or graft OTH NONSPC ABN FINDNG RAD&OTH [...] MISC Test twice a day LANCET S 76296138977 Active Baltazar Childers MD Active TRUEDRAW LANCING DEVICE MISC Test twice a day L ANCET DEVICES 49558548474 Active Baltazar Childers MD Active TRUETRACK TEST STRP Test twice a day GLUCOSE BLOO D 93682474544 Active Baltazar Childers MD Active TRUETRACK BLOOD GLUCOSE W/DEVICE KIT Test twice a day BLOOD GLUCOSE MONITORING SUPPL 00321696707 Active Baltazar Childers MD Activ e HYDROCODONE-ACETAMINOPHEN 7.5-325 MG TABS Take 1 tab every 6-8 hour s PRN HYDROCODONE-ACETAMINOPHEN 66106420314 Active Baltazar Childers MD Active NORTRIPTYLINE HCL 50 MG CAPS 1 every night for neuropathy 4 NORTRIPTYLINE HCL 85751967201 Active Baltazar Childers MD Acti ve GABAPENTIN 300 MG CAPS 1 three times a day GABAPE NTIN 76041291009 Active Baltazar Childers MD Active GABAPENTIN 300 MG CAPS 1 po qd x 2 days, then 1 po BID x 2 d ays, then 1 po TID GABAPENTIN 12212261751 No Longer Active Baltazar silverman MD Active TRAMADOL HCL 50 MG TABS 1 twice a day as needed for pain TRAMADOL HCL 67895007689 Active Baltazar Childers MD Active NAPROXEN 500 MG TABS 1 tablet by mouth twice daily NAPROXEN 02291672122 No Longer Active Baltazar Childers MD Active PROAIR HFA 108 (90 BASE) MCG/ACT AERS 2 puffs four times a d ay as needed ALBUTEROL SULFATE 16552296277 Active Baltazar Childers MD Active DEPO-TESTOSTERONE 200 MG/ML OIL as directed RUFINO TOSTERONE CYPIONATE 47203165320 No Longer Active Baltazar Childers MD Active LIPITOR 20 MG TABS Take one by mouth daily in evening ATORVASTATIN CALCIUM 59439572426 No Longer Active Baltazar Childers MD Activ e CRESTOR 10 MG TABS 1 by mouth every day R OSUVASTATIN CALCIUM 77580127031 No Longer Active Baltazar Childers MD Activ e PHENTERMINE HCL 37.5 MG TABS Take one by mouth daily 2 PHENTERMINE HCL 20280136821 No Longer Active Baltazar Childers MD Activ e ROBAXIN-750 750 MG TABS Take one by mouth daily ME THOCARBAMOL 18346245885 Active Baltazar Childers MD Active TIZANIDINE HCL 4 MG TABS 1 daily as needed for muscle spasm 2011 TIZANIDINE HCL 21971887288 No Longer Active Dawna Salazar RN Active [employer] ULTRA BLUE STRP Test twice a day GLUCO SE BLOOD 41847944606 Active Baltazar Childers MD Active YQUAKDNUUD-FGJK-ENGYAHUK 50-325-40 MG TABS 1 four time s a day as needed for heacache JYADGUALHW-LXZA-SGZYPLXN 87701452705 Active Baltazar Childers MD Active SUMATRIPTAN SUCCINATE 100 MG TABS 1 tablet by mouth at onset of migraine as needed SUMATRIPTAN SUCCINATE 92680994223 Active Baltazar bynum MD Active LORATADINE 10 MG TABS Take one by mouth daily LORATADINE 96248315039 Active Baltazar Childers MD Active FUROSEMIDE 40 MG TABS Take one by mouth daily FUROSEMIDE 26394915979 Active Baltazar Childers MD Active LISINOPRIL 20 MG TABS Take one by mouth daily at bedtime LISINOPRIL 14769413287 Active Baltazar Childers MD Active OMEPRAZOLE 20 MG CPDR Take one by mouth daily OMEPRAZOLE 10217708227 Active Baltazar Childers MD Active HYDROXYZINE HCL 25 MG TABS Take one by mouth daily HYDROXYZINE HCL 61927570167 Active Baltazar Childers MD Active GLIPIZIDE 10 MG TABS 1 tablet by mouth twice daily GLIPIZIDE 26040412976 Active Baltazar Childers MD Active ALPRAZOLAM 1 MG TABS 1 tablet by mouth daily at bedtime for restles s leg ALPRAZOLAM 37018355402 Active Baltazar Childers MD Active METFORMIN HCL 1000 MG TABS Take one by mouth twice daily METFORMIN HCL 11846810985 Active Baltazar Childers MD Active TIZANIDINE HCL 4 MG TABS 1 daily as needed for muscle spasm 2011 TIZANIDINE HCL 4 MG TABS 874524 TIZANIDINE HCL Inactiv e PHENTERMINE HCL 37.5 MG TABS Take one by mouth daily 2 PHENTERMINE HCL 37.5 MG TABS 640038 PHENTERMINE HCL Inactive CRESTOR 10 MG TABS 1 by mouth every day C RESTOR 10 MG TABS ROSUVASTATIN CALCIUM Inactive LIPITOR 20 MG TABS Take one by mouth daily in evening LIPITOR 20 MG TABS 910700 ATORVASTATIN CALCIUM Inactive DEPO-TESTOSTERONE 200 MG/ML OIL as directed 8 DEPO-TESTOSTERONE 200 MG/ML OIL 963548 TESTOSTERONE CYPIONATE Inactive NAPROXEN 500 MG TABS 1 tablet by mouth twice daily 201 07/27/22 NAPROXEN 500 MG TABS 692081 NAPROXEN Inactive GABAPENTIN 300 MG CAPS 1 po qd x 2 days, then 1 po BID x 2 d ays, then 1 po TID GABAPENTIN 300 MG CAPS 043912 GABAPENTIN Inact amie Immunizations Vaccine Administration Date Value Standard Floyd cription pneumococcal immunization administered Pneumovax 23 [CVX33] pneumococcal polysaccharide vaccine, 23 valent Seasonal influenza vaccine, injectable, containing preservative, for > 3 years old (Afluria, FluLaval, Fluzone, Fluvirin, Fluarix, Agriflu(>= 18 yo)) Fluzone (>3 yrs.) [[id number]] Influenza, seasonal, inject able Seasonal influenza vaccine, injectable, containing preservative, for > 3 years old (Afluria, FluLaval, Fluzone, Fluvirin, Fluarix, Agriflu(>= 18 yo)) Fluzone (>3 yrs.) [[id number]] Influenza, seasonal, inject able Vital Signs Date [...] weight E&M 224 [lb_av] Weight Measure d Diagnostic Results Date Name Value Unit Range Description Lab Report: Basic Metabolic Panel, HGBA1 C - Chemistry sodium, serum 140 mmol/L 594-826 8793/02/26 potassium, serum 5.3 mmol/L 3.5-5.2 chloride, serum [...] Panel - Chemistry sodium, serum 136 mmol/L 001-318 1343/01/06 potassium, serum 5.1 mmol/L 3.5-5.2 chloride, serum [...] mg/g mg/g{creat} 0-29 cholesterol, serum 319 mg/dL 032-665 4521/08/21 triglyceride, serum, fasting 546 mg/dL 30-200 HDL cholesterol, serum 39 mg/dL 32-96 LDL cholesterol, serum 167.00 mg/dL 5.00-130.00 hemoglobin A1C, blood, as % of total hemoglobin 7.7 % 4.3-6.0 sodium, serum 138 mmol/L 290-099 3292/08/21 potassium, serum 4.3 mmol/L 3.5-5.2 chloride, serum [...] mg/dL Encounters Code Encounter Date Provider Facility CPT-98519 Level 4 Est. Patient 14:15:19 CDT Baltazar Childers MD [facility] CPT-27896 Level 4 Est. Patient 12:20:13 CDT Baltazar Childers MD [facility] CPT-28654 Level 4 Est. Patient 14:52:45 VEST MAKER Baltazar Childers MD [facility] CPT-96688 Level 4 Est. Patient 14:18:34 VEST MAKER Baltazar Childers MD [facility] CPT-51631 Level 4 Est. Patient 15:18:29 CDT Baltazar Childers MD [facility] CPT-18483 Level 3 Est. Patient 12:45:34 CDT Baltazar Childers MD [facility] CPT-00502 Level 3 Est. Patient 10:10:11 CDT Baltazar Childers MD [facility] CPT-06960 Level 3 Est. Patient 14:07:50 CDT Baltazar Childers MD [facility] CPT-49420 Level 4 Est. Patient 12:26:10 VEST MAKER Baltazar Childers MD [facility] CPT-72959 Level 4 Est. Patient 14:45:38 CDT Baltazar Childers MD [facility] CPT-16148 Level 4 New Patient 12:30:48 CDT Baltazar hinton MD [facility] Procedures Code Procedure Name Date Entry Date Standard Desc ription CPT-77293 Fluzone Quadrivalent Intramuscular Suspe nsion 0.5 ML 10:49:13 CDT CPT-44485 First Vx Component - Ix admi n via ID IM or jet inj without physician counseling 15:17:19 VEST MAKER CPT-56507 Pneumovax 23 15:17:19 VEST MAKER CPT-78009 Pneumovax 14:52:45 VEST MAKER CPT-46223 Venipuncture Draw Fee 14:06:30 VEST MAKER CPT-000 Give Appropriate Flu Vaccine 14:18:34 VEST MAKER 2 CPT-33613 Administration single or combination vac cine inc oral 14:46:00 VEST MAKER CPT-14615 Influenza split virus > age 3 14:46:00 VEST MAKER CPT-OV Office Visit 19:13:16 CDT CPT-62250 Zostavax 18:41:56 CDT CPT-18251 Administration single or combination vac cine inc oral 12:56:39 CDT CPT-44158 Zoster Vaccine (Zostavax) 12:56:39 CDT 2012 CPT-78193 Venipuncture Draw Fee 10:58:57 CDT CPT-50995 Sono pelvis non OB uterus ovaries cervix 17:45:04 CDT CPT-22074 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
--- OUTSIDE RECORDS SUMMARY | 2019-10-27 13:51 | XMS REPORT | Clinical Summary ---
Author Author Admin, Elba Lance [facility] Address Unknown Phone Allergies, Adverse Reactions, Alerts [...] of status migrainosus HYPERLIPIDEMIA 272.4 Active Baltazar Chidlers MD Other and unspecified hyperlipidemia CARPAL TUNNEL [...] y atherosclerosis of unspecified type of vessel, [place] [...] tab every 6-8 hour s PRN HYDROCODONE-ACETAMINOPHEN 87407168316 Active Baltazar Childers MD Active NORTRIPTYLINE HCL 50 MG CAPS 1 every night for neuropathy 4 NORTRIPTYLINE HCL 30787118084 Active Baltazar Childers MD Acti ve GABAPENTIN 300 MG CAPS 1 three times a day GABAPE NTIN 44971208998 Active Baltazar Childers MD Active GABAPENTIN 300 MG CAPS 1 po qd x 2 days, then 1 po BID x 2 d ays, then 1 po TID GABAPENTIN 66816773609 No Longer Active Baltazar silverman MD Active TRAMADOL HCL 50 MG TABS 1 twice a day as needed for pain TRAMADOL HCL 66854510702 Active Baltazar Childers MD Active NAPROXEN 500 MG TABS 1 tablet by mouth twice daily NAPROXEN 57710713089 No Longer Active Baltazar Childers MD Active PROAIR HFA 108 (90 BASE) MCG/ACT AERS 2 puffs four times a d ay as needed ALBUTEROL SULFATE 22568247743 Active Baltazar Childers MD Active DEPO-TESTOSTERONE 200 MG/ML OIL as directed RUFINO TOSTERONE CYPIONATE 67254094642 No Longer Active Baltazar Childers MD Active LIPITOR 20 MG TABS Take one by mouth daily in evening ATORVASTATIN CALCIUM 34208995395 No Longer Active Baltazar Childers MD Activ e CRESTOR 10 MG TABS 1 by mouth every day R OSUVASTATIN CALCIUM 91048719856 No Longer Active Baltazar Childers MD Activ e PHENTERMINE HCL 37.5 MG TABS Take one by mouth daily 2 PHENTERMINE HCL 20732495548 No Longer Active Baltazar Childers MD Activ e ROBAXIN-750 750 MG TABS Take one by mouth daily ME THOCARBAMOL 36693346842 Active Baltazar Childers MD Active TIZANIDINE HCL 4 MG TABS 1 daily as needed for muscle spasm 2011 TIZANIDINE HCL 66645712751 No Longer Active Dawna Salazar RN Active ONETOUCH ULTRA BLUE STRP Test twice a day GLUCO SE BLOOD 63180775096 Active Baltazar Childers MD Active [id number]-[id number]-ZQOLUDIQ 50-325-40 MG TABS 1 four time s a day as needed for heacache [id number] 25056008982 Active Baltazar Childers MD Active SUMATRIPTAN SUCCINATE 100 MG TABS 1 tablet by mouth at onset of migraine as needed SUMATRIPTAN SUCCINATE 72497049507 Active Shireen Miller APRN Active LORATADINE 10 MG TABS Take one by mouth daily LORATADINE 79335628437 Active Brad Hughes Active FUROSEMIDE 40 MG TABS Take one by mouth daily FUROSEMIDE 17476465532 Active Shireen Miller APRN Active LISINOPRIL 20 MG TABS Take one by mouth daily at bedtime LISINOPRIL 28482856189 Active Shireen Miller APRN Active OMEPRAZOLE 20 MG CPDR Take one by mouth daily OMEPRAZOLE 00884316903 Active Shireen Miller APRN Active HYDROXYZINE HCL 25 MG TABS Take one by mouth daily HYDROXYZINE HCL 88106844576 Active Shireen Miller APRN Active GLIPIZIDE 10 MG TABS 1 tablet by mouth twice daily GLIPIZIDE 16294191707 Active Shireen Miller APRN Active ALPRAZOLAM 1 MG TABS 1 tablet by mouth daily at bedtime for restles s leg ALPRAZOLAM 88460049231 Active Baltazar Childers MD Active METFORMIN HCL 1000 MG TABS Take one by mouth twice daily METFORMIN HCL 79614161472 Active Shireen Miller APRN Active TIZANIDINE HCL 4 MG TABS 1 daily as needed for muscle spasm 2011 TIZANIDINE HCL 4 MG TABS 183432 TIZANIDINE HCL Inactiv e PHENTERMINE HCL 37.5 MG TABS Take one by mouth daily 2 PHENTERMINE HCL 37.5 MG TABS 653119 PHENTERMINE HCL Inactive CRESTOR 10 MG TABS 1 by mouth every day C RESTOR 10 MG TABS ROSUVASTATIN CALCIUM Inactive LIPITOR 20 MG TABS Take one by mouth daily in evening LIPITOR 20 MG TABS 145260 ATORVASTATIN CALCIUM Inactive DEPO-TESTOSTERONE 200 MG/ML OIL as directed 8 DEPO-TESTOSTERONE 200 MG/ML OIL 881623 TESTOSTERONE CYPIONATE Inactive NAPROXEN 500 MG TABS 1 tablet by mouth twice daily 201 07/27/22 NAPROXEN 500 MG TABS 657629 NAPROXEN Inactive GABAPENTIN 300 MG CAPS 1 po qd x 2 days, then 1 po BID x 2 d ays, then 1 po TID GABAPENTIN 300 MG CAPS 237330 GABAPENTIN Inact amie Immunizations Vaccine Administration Date Value Standard Floyd cription pneumococcal immunization administered Pneumovax 23 [CVX33] pneumococcal polysaccharide vaccine, 23 valent Seasonal influenza vaccine, injectable, containing preservative, for > 3 years old (Afluria, FluLaval, Fluzone, Fluvirin, Fluarix, Agriflu(>= 18 yo)) Fluzone (>3 yrs.) [[id number]] Influenza, seasonal, inject able Seasonal influenza vaccine, injectable, containing preservative, for > 3 years old (Afluria, FluLaval, Fluzone, Fluvirin, Fluarix, Agriflu(>= 18 yo)) Fluzone (>3 yrs.) [VDO745] Influenza, seasonal, inject able Vital Signs Date [...] C - Chemistry sodium, serum 140 mmol/L 267-047 0111/02/26 potassium, serum 5.3 mmol/L 3.5-5.2 chloride, serum 101 mmol/L 98-107 carbon dioxide, venous blood 36.9 mmol/L 21.0-32 .0 blood glucose 151 mg/dL 65-110 calcium, serum 8.7 mg/dL 8.5-10.1 urea nitrogen, blood 19 mg/dL 7-18 creatinine, serum 1.60 mg/dL 0.60-1.30 hemoglobin A1C, blood, as % of total hemoglobin 7.9 % 4.3-6.0 Lab Report: CBC, Basic Metabolic Panel, HGBA1C - Chemistry sodium, serum 138 mmol/L 825-408 0237/05/23 potassium, serum 4.9 mmol/L 3.5-5.2 chloride, serum [...] 0.39 mg/dL 0.00-1.00 cholesterol, serum 345 mg/dL 493-323 3271/08/26 triglyceride, serum, fasting 635 mg/dL 30-200 HDL [...] Panel - Chemistry sodium, serum 136 mmol/L 677-820 5972/01/06 potassium, serum 5.1 mmol/L 3.5-5.2 chloride, serum [...] Panel - Chemistry sodium, serum 139 mmol/L 111-566 0753/08/26 potassium, serum 5.8 mmol/L 3.5-5.2 chloride, serum 98 mmol/L 98-107 carbon dioxide, venous blood 33.0 mmol/L 21.0-32 .0 blood glucose 107 mg/dL 65-110 urea nitrogen, blood 26 mg/dL 7-18 creatinine, serum 1.80 mg/dL 0.60-1.30 calcium, serum 9.3 mg/dL 8.5-10.1 sodium, serum 138 mmol/L 056-840 6927/06/17 potassium, serum 4.9 mmol/L 3.5-5.2 chloride, serum [...] mg/dL Encounters Code Encounter Date Provider Facility CPT-09058 Level 4 Est. Patient 14:52:45 BILLBOARD POSTER Baltazar Childers MD [facility] CPT-94111 Level 4 Est. Patient 14:18:34 BILLBOARD POSTER Baltazar Childers MD [facility] CPT-73349 Level 4 Est. Patient 15:18:29 CDT Baltazar Childers MD [facility] CPT-10195 Level 3 Est. Patient 12:45:34 CDT Baltazar Childers MD [facility] CPT-29100 Level 3 Est. Patient 10:10:11 CDT Baltazar Childers MD [facility] CPT-41462 Level 3 Est. Patient 14:07:50 CDT Baltazar Childers MD [facility] CPT-54577 Level 4 Est. Patient 12:26:10 BILLBOARD POSTER Baltazar Childers MD [facility] CPT-74060 Level 4 Est. Patient 14:45:38 CDT Baltazar Childers MD [facility] CPT-26341 Level 4 New Patient 12:30:48 CDT Baltazar hinton MD [facility] Procedures Code Procedure Name Date Entry Date Standard Desc ription CPT-59670 First Vx Component - Ix admi n via ID IM or jet inj without physician counseling 15:17:19 BILLBOARD POSTER CPT-65747 Pneumovax 15:17:19 BILLBOARD POSTER CPT-03640 Pneumovax 14:52:45 BILLBOARD POSTER CPT-19395 Venipuncture Draw Fee 14:06:30 BILLBOARD POSTER CPT-000 Give Appropriate Flu Vaccine 14:18:34 BILLBOARD POSTER 2 CPT-31216 Administration single or combination vac cine inc oral 14:46:00 BILLBOARD POSTER CPT-42756 Influenza split virus > age 3 14:46:00 BILLBOARD POSTER CPT-OV Office Visit 19:13:16 CDT CPT-61168 Zostavax 18:41:56 CDT CPT-12169 Administration single or combination vac cine inc oral 12:56:39 CDT CPT-72724 Zoster Vaccine (Zostavax) 12:56:39 CDT 2012 CPT-93080 Venipuncture Draw Fee 10:58:57 CDT CPT-36975 Sono pelvis non OB uterus ovaries cervix 17:45:04 CDT CPT-94717 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
--- OUTSIDE RECORDS SUMMARY | 2019-10-27 13:51 | XMS REPORT | Clinical Summary ---
Author Author Admin, Elba Lance [facility] Address Unknown Phone Allergies, Adverse Reactions, Alerts [...] y atherosclerosis of unspecified type of vessel, [place] or graft OTH NONSPC ABN FINDNG RAD&OTH [...] tab every 6-8 hour s PRN HYDROCODONE-ACETAMINOPHEN 38604208287 Active Baltazar Childers MD Active NORTRIPTYLINE HCL 50 MG CAPS 1 every night for neuropathy 4 NORTRIPTYLINE HCL 31760593713 Active Baltazar Childers MD Acti ve GABAPENTIN 300 MG CAPS 1 three times a day GABAPE NTIN 36402736373 Active Baltazar Childers MD Active GABAPENTIN 300 MG CAPS 1 po qd x 2 days, then 1 po BID x 2 d ays, then 1 po TID GABAPENTIN 03062685232 No Longer Active Baltazar silverman MD Active TRAMADOL HCL 50 MG TABS 1 twice a day as needed for pain TRAMADOL HCL 75922958114 Active Baltazar Childers MD Active NAPROXEN 500 MG TABS 1 tablet by mouth twice daily NAPROXEN 02604696794 No Longer Active Baltazar Childers MD Active PROAIR HFA 108 (90 BASE) MCG/ACT AERS 2 puffs four times a d ay as needed ALBUTEROL SULFATE 07065556066 Active Baltazar Childers MD Active DEPO-TESTOSTERONE 200 MG/ML OIL as directed RUFINO TOSTERONE CYPIONATE 34058399711 No Longer Active Baltazar Childers MD Active LIPITOR 20 MG TABS Take one by mouth daily in evening ATORVASTATIN CALCIUM 74629993818 No Longer Active Baltazar Childers MD Activ e CRESTOR 10 MG TABS 1 by mouth every day R OSUVASTATIN CALCIUM 94979994450 No Longer Active Baltazar Childers MD Activ e PHENTERMINE HCL 37.5 MG TABS Take one by mouth daily 2 PHENTERMINE HCL 42955474687 No Longer Active Baltazar Childers MD Activ e ROBAXIN-750 750 MG TABS Take one by mouth daily ME THOCARBAMOL 79598639923 Active Baltazar Childers MD Active TIZANIDINE HCL 4 MG TABS 1 daily as needed for muscle spasm 2011 TIZANIDINE HCL 71736095389 No Longer Active Dawna Salazar RN Active ONETOUCH ULTRA BLUE STRP Test twice a day GLUCO SE BLOOD 91856804987 Active Baltazar Childers MD Active HFHECSAXSZ-STHR-XEZRNEXH 50-325-40 MG TABS 1 four time s a day as needed for heacache [id number] 88438813137 Active Baltazar Childers MD Active SUMATRIPTAN SUCCINATE 100 MG TABS 1 tablet by mouth at onset of migraine as needed SUMATRIPTAN SUCCINATE 34529897415 Active Shireen Miller APRN Active LORATADINE 10 MG TABS Take one by mouth daily LORATADINE 87829926211 Active Brad Hughes Active FUROSEMIDE 40 MG TABS Take one by mouth daily FUROSEMIDE 48173871755 Active Shireen Miller APRN Active LISINOPRIL 20 MG TABS Take one by mouth daily at bedtime LISINOPRIL 02671311808 Active Shireen Miller APRN Active OMEPRAZOLE 20 MG CPDR Take one by mouth daily OMEPRAZOLE 83679138788 Active Shireen Miller APRN Active HYDROXYZINE HCL 25 MG TABS Take one by mouth daily HYDROXYZINE HCL 58702621769 Active Shireen Miller APRN Active GLIPIZIDE 10 MG TABS 1 tablet by mouth twice daily GLIPIZIDE 86182380438 Active Shireen Miller APRN Active ALPRAZOLAM 1 MG TABS 1 tablet by mouth daily at bedtime for restles s leg ALPRAZOLAM 59979954093 Active Baltazar Childers MD Active METFORMIN HCL 1000 MG TABS Take one by mouth twice daily METFORMIN HCL 11055987351 Active Shireen Miller APRN Active TIZANIDINE HCL 4 MG TABS 1 daily as needed for muscle spasm 2011 TIZANIDINE HCL 4 MG TABS 779517 TIZANIDINE HCL Inactiv e PHENTERMINE HCL 37.5 MG TABS Take one by mouth daily 2 PHENTERMINE HCL 37.5 MG TABS 551297 PHENTERMINE HCL Inactive CRESTOR 10 MG TABS 1 by mouth every day C RESTOR 10 MG TABS ROSUVASTATIN CALCIUM Inactive LIPITOR 20 MG TABS Take one by mouth daily in evening LIPITOR 20 MG TABS 409792 ATORVASTATIN CALCIUM Inactive DEPO-TESTOSTERONE 200 MG/ML OIL as directed 8 DEPO-TESTOSTERONE 200 MG/ML OIL 990947 TESTOSTERONE CYPIONATE Inactive NAPROXEN 500 MG TABS 1 tablet by mouth twice daily 201 07/27/22 NAPROXEN 500 MG TABS 155913 NAPROXEN Inactive GABAPENTIN 300 MG CAPS 1 po qd x 2 days, then 1 po BID x 2 d ays, then 1 po TID GABAPENTIN 300 MG CAPS 951891 GABAPENTIN Inact amie Immunizations Vaccine Administration Date Value Standard Floyd cription pneumococcal immunization administered Pneumovax 23 [CVX33] pneumococcal polysaccharide vaccine, 23 valent Seasonal influenza vaccine, injectable, containing preservative, for > 3 years old (Afluria, FluLaval, Fluzone, Fluvirin, Fluarix, Agriflu(>= 18 yo)) Fluzone (>3 yrs.) [AQM085] Influenza, seasonal, inject able Seasonal influenza vaccine, injectable, containing preservative, for > 3 years old (Afluria, FluLaval, Fluzone, Fluvirin, Fluarix, Agriflu(>= 18 yo)) Fluzone (>3 yrs.) [PWN169] Influenza, seasonal, inject able Vital Signs Date [...] C - Chemistry sodium, serum 140 mmol/L 121-298 4519/02/26 potassium, serum 5.3 mmol/L 3.5-5.2 chloride, serum 101 mmol/L 98-107 carbon dioxide, venous blood 36.9 mmol/L 21.0-32 .0 blood glucose 151 mg/dL 65-110 calcium, serum 8.7 mg/dL 8.5-10.1 urea nitrogen, blood 19 mg/dL 7-18 creatinine, serum 1.60 mg/dL 0.60-1.30 hemoglobin A1C, blood, as % of total hemoglobin 7.9 % 4.3-6.0 Lab Report: CBC, Basic Metabolic Panel, HGBA1C - Chemistry sodium, serum 138 mmol/L 506-661 9651/05/23 potassium, serum 4.9 mmol/L 3.5-5.2 chloride, serum [...] 0.39 mg/dL 0.00-1.00 cholesterol, serum 345 mg/dL 827-234 5011/08/26 triglyceride, serum, fasting 635 mg/dL 30-200 HDL [...] Panel - Chemistry sodium, serum 136 mmol/L 645-960 9660/01/06 potassium, serum 5.1 mmol/L 3.5-5.2 chloride, serum [...] Panel - Chemistry sodium, serum 139 mmol/L 637-060 2581/08/26 potassium, serum 5.8 mmol/L 3.5-5.2 chloride, serum 98 mmol/L 98-107 carbon dioxide, venous blood 33.0 mmol/L 21.0-32 .0 blood glucose 107 mg/dL 65-110 urea nitrogen, blood 26 mg/dL 7-18 creatinine, serum 1.80 mg/dL 0.60-1.30 calcium, serum 9.3 mg/dL 8.5-10.1 sodium, serum 138 mmol/L 009-978 7149/06/17 potassium, serum 4.9 mmol/L 3.5-5.2 chloride, serum [...] mg/dL Encounters Code Encounter Date Provider Facility CPT-27773 Level 4 Est. Patient 14:52:45 COMPOSITION S[employer]ING WORKER Baltazar Childers MD [facility] CPT-48874 Level 4 Est. Patient 14:18:34 [employer]POSITION S[employer]ING WORKER Baltazar Childers MD [facility] CPT-79717 Level 4 Est. Patient 15:18:29 CDT Baltazar Childers MD [facility] CPT-27180 Level 3 Est. Patient 12:45:34 CDT Baltazar Childers MD [facility] CPT-35201 Level 3 Est. Patient 10:10:11 CDT Baltazar Childers MD [facility] CPT-30749 Level 3 Est. Patient 14:07:50 CDT Baltazar Childers MD [facility] CPT-07708 Level 4 Est. Patient 12:26:10 COMPOSITION SIDING WORKER Baltazar Childers MD [facility] CPT-55489 Level 4 Est. Patient 14:45:38 CDT Baltazar Childers MD [facility] CPT-17242 Level 4 New Patient 12:30:48 CDT Baltazar hinton MD [facility] Procedures Code Procedure Name Date Entry Date Standard Desc ription CPT-54863 First Vx Component - Ix admi n via ID IM or jet inj without physician counseling 15:17:19 [employer]ITION [employer]ING WORK[employer] CPT-54665 Pneumovax 23 15:17:19 COM[employer]ITION S[employer]ING WORKER CPT-01354 Pneumovax 14:52:45 COM[employer]ITION SIDING WORKER CPT-41595 Venipuncture Draw Fee 14:06:30 COMPOSITION SIDING WORKER CPT-000 Give Appropriate Flu Vaccine 14:18:34 COMPOSITION SIDING WORKER 2 CPT-06956 Administration single or combination vac cine inc oral 14:46:00 COM[employer]ITION SIDING WORKER CPT-66121 Influenza split virus > age 3 14:46:00 COMPOSITION SIDING WORKER CPT-OV Office Visit 19:13:16 CDT CPT-73014 Zostavax 18:41:56 CDT CPT-98662 Administration single or combination vac cine inc oral 12:56:39 CDT CPT-67144 Zoster Vaccine (Zostavax) 12:56:39 CDT 2012 CPT-19107 Venipuncture Draw Fee 10:58:57 CDT CPT-50148 Sono pelvis non OB uterus ovaries cervix 17:45:04 CDT CPT-60784 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
--- OUTSIDE RECORDS SUMMARY | 2019-10-27 13:51 | XMS REPORT | Clinical Summary ---
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 Benign neoplasm of colon PERIPHERAL NEUROPATHY [...] y atherosclerosis of unspecified type of vessel, yuhaaviatam [...] MISC Test twice a day LANCET S 27551873914 Active Baltazar Childers MD Active TRUEDRAW LANCING DEVICE MISC Test twice a day L ANCET DEVICES 60640968786 Active Baltazar Childers MD Active TRUETRACK TEST STRP Test twice a day GLUCOSE BLOO D 48612560146 Active Baltazar Childers MD Active TRUETRACK BLOOD GLUCOSE W/DEVICE KIT Test twice a day BLOOD GLUCOSE MONITORING SUPPL 34458316233 Active Baltazar Childers MD Activ e HYDROCODONE-ACETAMINOPHEN 7.5-325 MG TABS Take 1 tab every 6-8 hour s PRN HYDROCODONE-ACETAMINOPHEN 66652079734 Active Baltazar Childers MD Active NORTRIPTYLINE HCL 50 MG CAPS 1 every night for neuropathy 4 NORTRIPTYLINE HCL 21076012464 Active Baltazar Childers MD Acti ve GABAPENTIN 300 MG CAPS 1 three times a day GABAPE NTIN 02077619289 Active Baltazar Childers MD Active GABAPENTIN 300 MG CAPS 1 po qd x 2 days, then 1 po BID x 2 d ays, then 1 po TID GABAPENTIN 86566882202 No Longer Active Baltazar silverman MD Active TRAMADOL HCL 50 MG TABS 1 twice a day as needed for pain TRAMADOL HCL 04741821754 Active Baltazar Childers MD Active NAPROXEN 500 MG TABS 1 tablet by mouth twice daily NAPROXEN 25786236336 No Longer Active Baltazar Childers MD Active PROAIR HFA 108 (90 BASE) MCG/ACT AERS 2 puffs four times a d ay as needed ALBUTEROL SULFATE 67733061407 Active Baltazar Childers MD Active DEPO-TESTOSTERONE 200 MG/ML OIL as directed RUFINO TOSTERONE CYPIONATE 46292838550 No Longer Active Baltazar Childers MD Active LIPITOR 20 MG TABS Take one by mouth daily in evening ATORVASTATIN CALCIUM 70941611933 No Longer Active Baltazar Childers MD Activ e CRESTOR 10 MG TABS 1 by mouth every day R OSUVASTATIN CALCIUM 05502370334 No Longer Active Baltazar Childers MD Activ e PHENTERMINE HCL 37.5 MG TABS Take one by mouth daily 2 PHENTERMINE HCL 32047058160 No Longer Active Baltazar Childers MD Activ e ROBAXIN-750 750 MG TABS Take one by mouth daily ME THOCARBAMOL 10613727768 Active Baltazar Childers MD Active TIZANIDINE HCL 4 MG TABS 1 daily as needed for muscle spasm 2011 TIZANIDINE HCL 29124488892 No Longer Active Dawna Salazar RN Active WatchDoxUCH ULTRA BLUE STRP Test twice a day GLUCO SE BLOOD 45969923230 Active Baltazar Childers MD Active [id number] 50-325-40 MG TABS 1 four time s a day as needed for heacache [id number]-[id number] 01307830243 Active Baltazar Childers MD Active SUMATRIPTAN SUCCINATE 100 MG TABS 1 tablet by mouth at onset of migraine as needed SUMATRIPTAN SUCCINATE 76104886512 Active Baltazar bynum MD Active LORATADINE 10 MG TABS Take one by mouth daily LORATADINE 22462805819 Active Baltazar Childers MD Active FUROSEMIDE 40 MG TABS Take one by mouth daily FUROSEMIDE 07088575351 Active Baltazar Childers MD Active LISINOPRIL 20 MG TABS Take one by mouth daily at bedtime LISINOPRIL 84735442210 Active Baltazar Childers MD Active OMEPRAZOLE 20 MG CPDR Take one by mouth daily OMEPRAZOLE 33624399786 Active Baltazar Childers MD Active HYDROXYZINE HCL 25 MG TABS Take one by mouth daily HYDROXYZINE HCL 15255789566 Active Baltazar Childers MD Active GLIPIZIDE 10 MG TABS 1 tablet by mouth twice daily GLIPIZIDE 89716064086 Active Baltazar Childers MD Active ALPRAZOLAM 1 MG TABS 1 tablet by mouth daily at bedtime for restles s leg ALPRAZOLAM 10222513587 Active Baltazar Childers MD Active METFORMIN HCL 1000 MG TABS Take one by mouth twice daily METFORMIN HCL 08896716866 Active Baltazar Childers MD Active TIZANIDINE HCL 4 MG TABS 1 daily as needed for muscle spasm 2011 TIZANIDINE HCL 4 MG TABS 817325 TIZANIDINE HCL Inactiv e PHENTERMINE HCL 37.5 MG TABS Take one by mouth daily 2 PHENTERMINE HCL 37.5 MG TABS 860115 PHENTERMINE HCL Inactive CRESTOR 10 MG TABS 1 by mouth every day C RESTOR 10 MG TABS ROSUVASTATIN CALCIUM Inactive LIPITOR 20 MG TABS Take one by mouth daily in evening LIPITOR 20 MG TABS 354910 ATORVASTATIN CALCIUM Inactive DEPO-TESTOSTERONE 200 MG/ML OIL as directed 8 DEPO-TESTOSTERONE 200 MG/ML OIL 503233 TESTOSTERONE CYPIONATE Inactive NAPROXEN 500 MG TABS 1 tablet by mouth twice daily 201 07/27/22 NAPROXEN 500 MG TABS 905470 NAPROXEN Inactive GABAPENTIN 300 MG CAPS 1 po qd x 2 days, then 1 po BID x 2 d ays, then 1 po TID GABAPENTIN 300 MG CAPS 917775 GABAPENTIN Inact amie Immunizations Vaccine Administration Date Value Standard Floyd cription pneumococcal immunization administered Pneumovax 23 [CVX33] pneumococcal polysaccharide vaccine, 23 valent Seasonal influenza vaccine, injectable, containing preservative, for > 3 years old (Afluria, FluLaval, Fluzone, Fluvirin, Fluarix, Agriflu(>= 18 yo)) Fluzone (>3 yrs.) [[id number]] Influenza, seasonal, inject able Seasonal influenza vaccine, injectable, containing preservative, for > 3 years old (Afluria, FluLaval, Fluzone, Fluvirin, Fluarix, Agriflu(>= 18 yo)) Fluzone (>3 yrs.) [JPH194] Influenza, seasonal, inject able Vital Signs Date [...] C - Chemistry sodium, serum 140 mmol/L 772-067 2859/02/26 potassium, serum 5.3 mmol/L 3.5-5.2 chloride, serum [...] Panel - Chemistry sodium, serum 136 mmol/L 815-381 8433/01/06 potassium, serum 5.1 mmol/L 3.5-5.2 chloride, serum [...] mg/g mg/g{creat} 0-29 cholesterol, serum 319 mg/dL 992-631 8027/08/21 triglyceride, serum, fasting 546 mg/dL 30-200 HDL cholesterol, serum 39 mg/dL 32-96 LDL cholesterol, serum 167.00 mg/dL 5.00-130.00 hemoglobin A1C, blood, as % of total hemoglobin 7.7 % 4.3-6.0 sodium, serum 138 mmol/L 553-360 9191/08/21 potassium, serum 4.3 mmol/L 3.5-5.2 chloride, serum [...] mg/dL Encounters Code Encounter Date Provider Facility CPT-71318 Level 4 Est. Patient 14:15:19 CDT Baltazar Childers MD [facility] CPT-32192 Level 4 Est. Patient 12:20:13 CDT Baltazar Childers MD [facility] CPT-44365 Level 4 Est. Patient 14:52:45 TYPEWRITER OPERATOR AUTOMATIC Baltazar Childers MD [facility] CPT-54319 Level 4 Est. Patient 14:18:34 TYPEWRITER OPERATOR AUTOMATIC Baltazar Childers MD [facility] CPT-14183 Level 4 Est. Patient 15:18:29 CDT Baltazar Childers MD [facility] CPT-20912 Level 3 Est. Patient 12:45:34 CDT Baltazar Childers MD [facility] CPT-94334 Level 3 Est. Patient 10:10:11 CDT Baltazar Childers MD [facility] CPT-15658 Level 3 Est. Patient 14:07:50 CDT Baltazar Childers MD [facility] CPT-66320 Level 4 Est. Patient 12:26:10 TYPEWRITER OPERATOR AUTOMATIC Baltazar Childers MD [facility] CPT-97602 Level 4 Est. Patient 14:45:38 CDT Baltazar Childers MD [facility] CPT-60892 Level 4 New Patient 12:30:48 CDT Baltazar hinton MD [facility] Procedures Code Procedure Name Date Entry Date Standard Desc ription CPT-04029 Fluzone Quadrivalent Intramuscular Suspe nsion 0.5 ML 10:49:13 CDT CPT-03721 First Vx Component - Ix admi n via ID IM or jet inj without physician counseling 15:17:19 TYPEWRITER OPERATOR AUTOMATIC CPT-94218 Pneumovax 23 15:17:19 TYPEWRITER OPERATOR AUTOMATIC CPT-97707 Pneumovax 14:52:45 TYPEWRITER OPERATOR AUTOMATIC CPT-43328 Venipuncture Draw Fee 14:06:30 TYPEWRITER OPERATOR AUTOMATIC CPT-000 Give Appropriate Flu Vaccine 14:18:34 TYPEWRITER OPERATOR AUTOMATIC 2 CPT-99412 Administration single or combination vac cine inc oral 14:46:00 TYPEWRITER OPERATOR AUTOMATIC CPT-78815 Influenza split virus > age 3 14:46:00 TYPEWRITER OPERATOR AUTOMATIC CPT-OV Office Visit 19:13:16 CDT CPT-15081 Zostavax 18:41:56 CDT CPT-20643 Administration single or combination vac cine inc oral 12:56:39 CDT CPT-35485 Zoster Vaccine (Zostavax) 12:56:39 CDT 2012 CPT-70812 Venipuncture Draw Fee 10:58:57 CDT CPT-52088 Sono pelvis non OB uterus ovaries cervix 17:45:04 CDT CPT-48324 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
[2019-10-27 13:52] LABS: ABG BASE EXCESS 2.5 MMOL/L (-2.5-2.5); ABG OXYGEN SATURATION 86 % (94-100); ABG PCO2 45 MMHG (35-45); ABG PO2 63 MMHG (79-93); ABG TCO2 28.2 MMOL/L (21.0-31.0)
--- OUTSIDE RECORDS SUMMARY | 2019-10-27 13:52 | XMS REPORT | Clinical Summary ---
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 Benign neoplasm of colon PERIPHERAL NEUROPATHY [...] y atherosclerosis of unspecified type of vessel, walker [...] tab every 6-8 hour s PRN HYDROCODONE-ACETAMINOPHEN 38349119101 Active Baltazar Childers MD Active NORTRIPTYLINE HCL 50 MG CAPS 1 every night for neuropathy 4 NORTRIPTYLINE HCL 01001078410 Active Amaris Jason MD PhD Act amie GABAPENTIN 300 MG CAPS 1 three times a day GABAPE NTIN 27529266900 Active Baltazar Childers MD Active GABAPENTIN 300 MG CAPS 1 po qd x 2 days, then 1 po BID x 2 d ays, then 1 po TID GABAPENTIN 45488103780 No Longer Active Baltazar silverman MD Active TRAMADOL HCL 50 MG TABS 1 twice a day as needed for pain TRAMADOL HCL 48371831640 Active Baltazar Childers MD Active NAPROXEN 500 MG TABS 1 tablet by mouth twice daily NAPROXEN 76314439471 No Longer Active Baltazar Childers MD Active PROAIR HFA 108 (90 BASE) MCG/ACT AERS 2 puffs four times a d ay as needed ALBUTEROL SULFATE 60336475859 Active Baltazar Childers MD Active DEPO-TESTOSTERONE 200 MG/ML OIL as directed RUFINO TOSTERONE CYPIONATE 52545528852 No Longer Active Baltazar Childers MD Active LIPITOR 20 MG TABS Take one by mouth daily in evening ATORVASTATIN CALCIUM 10087125270 No Longer Active Baltazra Childers MD Activ e CRESTOR 10 MG TABS 1 by mouth every day R OSUVASTATIN CALCIUM 58948333673 No Longer Active Baltazar Childesr MD Activ e PHENTERMINE HCL 37.5 MG TABS Take one by mouth daily 2 PHENTERMINE HCL 81570298248 No Longer Active Baltazar Childers MD Activ e ROBAXIN-750 750 MG TABS Take one by mouth daily ME THOCARBAMOL 34673595493 Active Baltazar Childers MD Active TIZANIDINE HCL 4 MG TABS 1 daily as needed for muscle spasm 2011 TIZANIDINE HCL 82605531738 No Longer Active Dawna Salazar RN Active ONETOUCH ULTRA BLUE STRP Test twice a day GLUCO SE BLOOD 47939552657 Active Baltazar Childers MD Active [id number]-[id number]-[id number] 50-325-40 MG TABS 1 four time s a day as needed for heacache LGONGHQAZC-[id number] 78899919307 Active Baltazar Childers MD Active SUMATRIPTAN SUCCINATE 100 MG TABS 1 tablet by mouth at onset of migraine as needed SUMATRIPTAN SUCCINATE 11396868670 Active Baltazar bynum MD Active LORATADINE 10 MG TABS Take one by mouth daily LORATADINE 91216591009 Active Baltazar Childers MD Active FUROSEMIDE 40 MG TABS Take one by mouth daily FUROSEMIDE 41416583349 Active Baltazar Childers MD Active LISINOPRIL 20 MG TABS Take one by mouth daily at bedtime LISINOPRIL 21350990297 Active Baltazar Childers MD Active OMEPRAZOLE 20 MG CPDR Take one by mouth daily OMEPRAZOLE 67305953503 Active Baltazar Childers MD Active HYDROXYZINE HCL 25 MG TABS Take one by mouth daily HYDROXYZINE HCL 01983436341 Active Baltazar Childers MD Active GLIPIZIDE 10 MG TABS 1 tablet by mouth twice daily GLIPIZIDE 54421311718 Active Baltazar Childers MD Active ALPRAZOLAM 1 MG TABS 1 tablet by mouth daily at bedtime for restles s leg ALPRAZOLAM 20272256178 Active Baltazar Childers MD Active METFORMIN HCL 1000 MG TABS Take one by mouth twice daily METFORMIN HCL 08873320645 Active Baltazar Childers MD Active TIZANIDINE HCL 4 MG TABS 1 daily as needed for muscle spasm 2011 TIZANIDINE HCL 4 MG TABS 090527 TIZANIDINE HCL Inactiv e PHENTERMINE HCL 37.5 MG TABS Take one by mouth daily 2 PHENTERMINE HCL 37.5 MG TABS 133227 PHENTERMINE HCL Inactive CRESTOR 10 MG TABS 1 by mouth every day C RESTOR 10 MG TABS ROSUVASTATIN CALCIUM Inactive LIPITOR 20 MG TABS Take one by mouth daily in evening LIPITOR 20 MG TABS 752931 ATORVASTATIN CALCIUM Inactive DEPO-TESTOSTERONE 200 MG/ML OIL as directed 8 DEPO-TESTOSTERONE 200 MG/ML OIL 780550 TESTOSTERONE CYPIONATE Inactive NAPROXEN 500 MG TABS 1 tablet by mouth twice daily 201 07/27/22 NAPROXEN 500 MG TABS 151529 NAPROXEN Inactive GABAPENTIN 300 MG CAPS 1 po qd x 2 days, then 1 po BID x 2 d ays, then 1 po TID GABAPENTIN 300 MG CAPS 982249 GABAPENTIN Inact amie Immunizations Vaccine Administration Date Value Standard Floyd cription pneumococcal immunization administered Pneumovax 23 [CVX33] pneumococcal polysaccharide vaccine, 23 valent Seasonal influenza vaccine, injectable, containing preservative, for > 3 years old (Afluria, FluLaval, Fluzone, Fluvirin, Fluarix, Agriflu(>= 18 yo)) Fluzone (>3 yrs.) [ZIZ751] Influenza, seasonal, inject able Seasonal influenza vaccine, injectable, containing preservative, for > 3 years old (Afluria, FluLaval, Fluzone, Fluvirin, Fluarix, Agriflu(>= 18 yo)) Fluzone (>3 yrs.) [[id number]] Influenza, seasonal, inject able Vital Signs Date [...] C - Chemistry sodium, serum 140 mmol/L 290-444 5391/02/26 potassium, serum 5.3 mmol/L 3.5-5.2 chloride, serum [...] Panel - Chemistry sodium, serum 136 mmol/L 810-661 3108/01/06 potassium, serum 5.1 mmol/L 3.5-5.2 chloride, serum [...] mg/g mg/g{creat} 0-29 cholesterol, serum 319 mg/dL 051-645 5470/08/21 triglyceride, serum, fasting 546 mg/dL 30-200 HDL cholesterol, serum 39 mg/dL 32-96 LDL cholesterol, serum 167.00 mg/dL 5.00-130.00 hemoglobin A1C, blood, as % of total hemoglobin 7.7 % 4.3-6.0 sodium, serum 138 mmol/L 827-978 1751/08/21 potassium, serum 4.3 mmol/L 3.5-5.2 chloride, serum [...] mg/dL Encounters Code Encounter Date Provider Facility CPT-06398 Level 4 Est. Patient 12:20:13 CDT Baltazar Childers MD [facility] CPT-68640 Level 4 Est. 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 Patient 14:18:34 OIL AND GAS SUPERINTENDENT Baltazar Childers MD [facility] CPT-72851 Level 4 Est. Patient 15:18:29 CDT Baltazar Childers MD [facility] CPT-30008 Level 3 Est. Patient 12:45:34 CDT Baltazar Childers MD [facility] CPT-61309 Level 3 Est. Patient 10:10:11 CDT Baltazar Childers MD [facility] CPT-53227 Level 3 Est. Patient 14:07:50 CDT Baltazar Childers MD [facility] CPT-62856 Level 4 Est. Patient 12:26:10 OIL AND GAS SUPERINTENDENT Baltazar Childers MD [facility] CPT-54841 Level 4 Est. Patient 14:45:38 CDT Baltazar Childers MD [facility] CPT-16967 Level 4 New Patient 12:30:48 CDT Baltazar hinton MD [facility] Procedures Code Procedure Name Date Entry Date Standard Desc ription CPT-41704 Fluzone Quadrivalent Intramuscular Suspe nsion 0.5 ML 10:49:13 CDT CPT-68997 First Vx Component - Ix admi n via ID IM or jet inj without physician counseling 15:17:19 OIL AND GAS SUPERINTENDENT CPT-83989 Pneumovax 23 15:17:19 OIL AND GAS SUPERINTENDENT CPT-64203 Pneumovax 14:52:45 OIL AND GAS SUPERINTENDENT CPT-91991 Venipuncture Draw Fee 14:06:30 OIL AND GAS SUPERINTENDENT CPT-000 Give Appropriate Flu Vaccine 14:18:34 OIL AND GAS SUPERINTENDENT 2 CPT-65987 Administration single or combination vac cine inc oral 14:46:00 OIL AND GAS SUPERINTENDENT CPT-17447 Influenza split virus > age 3 14:46:00 OIL AND GAS SUPERINTENDENT CPT-OV Office Visit 19:13:16 CDT CPT-85083 Zostavax 18:41:56 CDT CPT-10311 Administration single or combination vac cine inc oral 12:56:39 CDT CPT-41394 Zoster Vaccine (Zostavax) 12:56:39 CDT 2012 CPT-67526 Venipuncture Draw Fee 10:58:57 CDT CPT-11728 Sono pelvis non OB uterus ovaries cervix 17:45:04 CDT CPT-34740 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
--- OUTSIDE RECORDS SUMMARY | 2019-10-27 13:52 | XMS REPORT | Clinical Summary ---
Author Author Admin, [facility] Address Unknown Phone Unavailable Allergies, [...] libido COLON POLYPS 211.3 Resolved Lolis Thomas PROCESS ENG Benign neoplasm of colon PERIPHERAL NEUROPATHY 356.9 [...] y atherosclerosis of unspecified type of vessel, [place] or graft OTH NONSPC ABN FINDNG [...] MISC Test twice a day LANCET S 74630835045 Active Baltazar Childers MD Active TRUEDRAW LANCING DEVICE MISC Test twice a day L ANCET DEVICES 56932815278 Active Baltazar Childers MD Active TRUETRACK TEST STRP Test twice a day GLUCOSE BLOO D 63690237956 Active Baltazar Childers MD Active TRUETRACK BLOOD GLUCOSE W/DEVICE KIT Test twice a day BLOOD GLUCOSE MONITORING SUPPL 86640257367 Active Baltazar Childers MD Activ e HYDROCODONE-ACETAMINOPHEN 7.5-325 MG TABS Take 1 tab every 6-8 hour s PRN HYDROCODONE-ACETAMINOPHEN 94196869658 Active Baltazar Childers MD Active NORTRIPTYLINE HCL 50 MG CAPS 1 every night for neuropathy 4 NORTRIPTYLINE HCL 44078818370 Active Baltazar Childers MD Acti ve GABAPENTIN 300 MG CAPS 1 three times a day GABAPE NTIN 07249343161 Active Baltazar Childers MD Active GABAPENTIN 300 MG CAPS 1 po qd x 2 days, then 1 po BID x 2 d ays, then 1 po TID GABAPENTIN 48330807067 No Longer Active Baltazar silverman MD Active TRAMADOL HCL 50 MG TABS 1 twice a day as needed for pain TRAMADOL HCL 95140326694 Active Baltazar Childers MD Active NAPROXEN 500 MG TABS 1 tablet by mouth twice daily NAPROXEN 82558524428 No Longer Active Baltazar Childers MD Active PROAIR HFA 108 (90 BASE) MCG/ACT AERS 2 puffs four times a d ay as needed ALBUTEROL SULFATE 99286352302 Active Baltazar Childers MD Active DEPO-TESTOSTERONE 200 MG/ML OIL as directed RUFINO TOSTERONE CYPIONATE 99814894346 No Longer Active Baltazar Childers MD Active LIPITOR 20 MG TABS Take one by mouth daily in evening ATORVASTATIN CALCIUM 26706695050 No Longer Active Baltazar Childers MD Activ e CRESTOR 10 MG TABS 1 by mouth every day R OSUVASTATIN CALCIUM 46617780714 No Longer Active Baltazar Childers MD Activ e PHENTERMINE HCL 37.5 MG TABS Take one by mouth daily 2 PHENTERMINE HCL 97321610176 No Longer Active Baltazar Childers MD Activ e ROBAXIN-750 750 MG TABS Take one by mouth daily ME THOCARBAMOL 87047415880 Active Baltazar Childers MD Active TIZANIDINE HCL 4 MG TABS 1 daily as needed for muscle spasm 2011 TIZANIDINE HCL 44251588595 No Longer Active Dawna Salazar RN Active WellDocUCH ULTRA BLUE STRP Test twice a day GLUCO SE BLOOD 69012599284 Active Baltazar Childers MD Active [id number] 50-325-40 MG TABS 1 four time s a day as needed for heacache [id number] 73659103027 Active Baltazar Childers MD Active SUMATRIPTAN SUCCINATE 100 MG TABS 1 tablet by mouth at onset of migraine as needed SUMATRIPTAN SUCCINATE 51612972070 Active Baltazar bynum MD Active LORATADINE 10 MG TABS Take one by mouth daily LORATADINE 25535263004 Active Baltazar Childers MD Active FUROSEMIDE 40 MG TABS Take one by mouth daily FUROSEMIDE 87167057831 Active Baltazar Childers MD Active LISINOPRIL 20 MG TABS Take one by mouth daily at bedtime LISINOPRIL 22077515589 Active Baltazar Childers MD Active OMEPRAZOLE 20 MG CPDR Take one by mouth daily OMEPRAZOLE 75450927678 Active Baltazar Childers MD Active HYDROXYZINE HCL 25 MG TABS Take one by mouth daily HYDROXYZINE HCL 69857084553 Active Baltazar Childers MD Active GLIPIZIDE 10 MG TABS 1 tablet by mouth twice daily GLIPIZIDE 45211784291 Active Baltazar Childers MD Active ALPRAZOLAM 1 MG TABS 1 tablet by mouth daily at bedtime for restles s leg ALPRAZOLAM 90061625134 Active Baltazar Childers MD Active METFORMIN HCL 1000 MG TABS Take one by mouth twice daily METFORMIN HCL 71508499330 Active Baltazar Childers MD Active TIZANIDINE HCL 4 MG TABS 1 daily as needed for muscle spasm 2011 TIZANIDINE HCL 4 MG TABS 439672 TIZANIDINE HCL Inactiv e PHENTERMINE HCL 37.5 MG TABS Take one by mouth daily 2 PHENTERMINE HCL 37.5 MG TABS 309151 PHENTERMINE HCL Inactive CRESTOR 10 MG TABS 1 by mouth every day C RESTOR 10 MG TABS ROSUVASTATIN CALCIUM Inactive LIPITOR 20 MG TABS Take one by mouth daily in evening LIPITOR 20 MG TABS 353696 ATORVASTATIN CALCIUM Inactive DEPO-TESTOSTERONE 200 MG/ML OIL as directed 8 DEPO-TESTOSTERONE 200 MG/ML OIL 872734 TESTOSTERONE CYPIONATE Inactive NAPROXEN 500 MG TABS 1 tablet by mouth twice daily 201 07/27/22 NAPROXEN 500 MG TABS 095724 NAPROXEN Inactive GABAPENTIN 300 MG CAPS 1 po qd x 2 days, then 1 po BID x 2 d ays, then 1 po TID GABAPENTIN 300 MG CAPS 650573 GABAPENTIN Inact amie Immunizations Vaccine Administration Date Value Standard Floyd cription pneumococcal immunization administered Pneumovax 23 [CVX33] pneumococcal polysaccharide vaccine, 23 valent Seasonal influenza vaccine, injectable, containing preservative, for > 3 years old (Afluria, FluLaval, Fluzone, Fluvirin, Fluarix, Agriflu(>= 18 yo)) Fluzone (>3 yrs.) [[id number]] Influenza, seasonal, inject able Seasonal influenza vaccine, injectable, containing preservative, for > 3 years old (Afluria, FluLaval, Fluzone, Fluvirin, Fluarix, Agriflu(>= 18 yo)) Fluzone (>3 yrs.) [[id number]] Influenza, seasonal, inject able Vital Signs Date [...] C - Chemistry sodium, serum 140 mmol/L 061-978 8842/02/26 potassium, serum 5.3 mmol/L 3.5-5.2 chloride, serum [...] Panel - Chemistry sodium, serum 136 mmol/L 309-776 1142/01/06 potassium, serum 5.1 mmol/L 3.5-5.2 chloride, serum [...] mg/g mg/g{creat} 0-29 cholesterol, serum 319 mg/dL 488-621 7747/08/21 triglyceride, serum, fasting 546 mg/dL 30-200 HDL cholesterol, serum 39 mg/dL 32-96 LDL cholesterol, serum 167.00 mg/dL 5.00-130.00 hemoglobin A1C, blood, as % of total hemoglobin 7.7 % 4.3-6.0 sodium, serum 138 mmol/L 772-580 2354/08/21 potassium, serum 4.3 mmol/L 3.5-5.2 chloride, serum [...] mg/dL Encounters Code Encounter Date Provider Facility CPT-60356 Level 4 Est. Patient 14:15:19 CDT Baltazar Childers MD [facility] CPT-54081 Level 4 Est. Patient 12:20:13 CDT Baltazar Childers MD [facility] CPT-24109 Level 4 Est. Patient 14:52:45 [employer] Baltazar Childers MD [facility] CPT-78811 Level 4 Est. Patient 14:18:34 [employer] Baltazar Childers MD [facility] CPT-53533 Level 4 Est. Patient 15:18:29 CDT Baltazar Childers MD [facility] CPT-50521 Level 3 Est. Patient 12:45:34 CDT Baltazar Childers MD [facility] CPT-18833 Level 3 Est. Patient 10:10:11 CDT Baltazar Childers MD [facility] CPT-87180 Level 3 Est. Patient 14:07:50 CDT Baltazar Childers MD [facility] CPT-01102 Level 4 Est. Patient 12:26:10 [employer] Baltazar Childers MD [facility] CPT-08320 Level 4 Est. Patient 14:45:38 CDT Baltazar Childers MD [facility] CPT-71013 Level 4 New Patient 12:30:48 CDT Baltazar hinton MD [facility] Procedures Code Procedure Name Date Entry Date Standard Desc ription CPT-10719 Fluzone Quadrivalent Intramuscular Suspe nsion 0.5 ML 10:49:13 CDT CPT-90072 First Vx Component - Ix admi n via ID IM or jet inj without physician counseling 15:17:19 [employer] CPT-42909 Pneumovax 23 15:17:19 [employer] CPT-63975 Pneumovax 14:52:45 [employer] CPT-71430 Venipuncture Draw Fee 14:06:30 [employer] CPT-000 Give Appropriate Flu Vaccine 14:18:34 [employer] 2 CPT-99575 Administration single or combination vac cine inc oral 14:46:00 [employer] CPT-59195 Influenza split virus > age 3 14:46:00 [employer] CPT-OV Office Visit 19:13:16 CDT CPT-91023 Zostavax 18:41:56 CDT CPT-88543 Administration single or combination vac cine inc oral 12:56:39 CDT CPT-30278 Zoster Vaccine (Zostavax) 12:56:39 CDT 2012 CPT-60004 Venipuncture Draw Fee 10:58:57 CDT CPT-28708 Sono pelvis non OB uterus ovaries cervix 17:45:04 CDT CPT-97472 Sono retroperitoneal complete kidneys an d bladder 17:14:36 CDT CPT-OV Office Visit 14:59:38 [employer] CPT-J1070 Depo Testosterone 100 mg 14:50:13 CDT 03/05 CPT-87419 Abx/Therapy Injection 14:50:13 CDT CPT-47337 Administration single or combination vac cine inc oral 14:34:43 CDT CPT-67499 Influenza split virus > age 3 14:34:43 CDT CPT-J1070 Depo Testosterone 100 mg 17:37:13 CDT 01/11 CPT-65800 Abx/Therapy Injection 17:37:13 CDT CPT-75964 Venipuncture Draw Fee 16:30:13 CDT CPT-30992 Venipuncture Draw Fee 16:29:43 CDT CPT-J1070 Depo Testosterone 100 mg 14:45:38 CDT 01/11
--- OUTSIDE RECORDS SUMMARY | 2019-10-27 13:52 | XMS REPORT | Clinical Summary ---
Author Author Admin, [facility] Address Unknown Phone Allergies, Adverse [...] kidney and ureter CAD 414.00 Active Galdys Yazmin Coronar y atherosclerosis of unspecified type [...] tab every 6-8 hour s PRN HYDROCODONE-ACETAMINOPHEN 68047742219 Active Baltazar Childers MD Active NORTRIPTYLINE HCL 50 MG CAPS 1 every night for neuropathy 4 NORTRIPTYLINE HCL 22210837749 Active Baltazar Childers MD Acti ve GABAPENTIN 300 MG CAPS 1 three times a day GABAPE NTIN 99426098016 Active Baltazar Childers MD Active GABAPENTIN 300 MG CAPS 1 po qd x 2 days, then 1 po BID x 2 d ays, then 1 po TID GABAPENTIN 70607013599 No Longer Active Baltazar silverman MD Active TRAMADOL HCL 50 MG TABS 1 twice a day as needed for pain TRAMADOL HCL 25057436816 Active Baltazar Childers MD Active NAPROXEN 500 MG TABS 1 tablet by mouth twice daily NAPROXEN 53659079599 No Longer Active Baltazar Childers MD Active PROAIR HFA 108 (90 BASE) MCG/ACT AERS 2 puffs four times a d ay as needed ALBUTEROL SULFATE 68153381289 Active Baltazar Childers MD Active DEPO-TESTOSTERONE 200 MG/ML OIL as directed RUFINO TOSTERONE CYPIONATE 82295525610 No Longer Active Baltazar Childers MD Active LIPITOR 20 MG TABS Take one by mouth daily in evening ATORVASTATIN CALCIUM 21023552073 No Longer Active Baltazar Childers MD Activ e CRESTOR 10 MG TABS 1 by mouth every day R OSUVASTATIN CALCIUM 30248916826 No Longer Active Baltazar Childers MD Activ e PHENTERMINE HCL 37.5 MG TABS Take one by mouth daily 2 PHENTERMINE HCL 66586413119 No Longer Active Baltazar Childers MD Activ e ROBAXIN-750 750 MG TABS Take one by mouth daily ME THOCARBAMOL 67271328975 Active Baltazar Childers MD Active TIZANIDINE HCL 4 MG TABS 1 daily as needed for muscle spasm 2011 TIZANIDINE HCL 96296865989 No Longer Active Dawna Salazar RN Active ONETOUCH ULTRA BLUE STRP Test twice a day GLUCO SE BLOOD 96134327851 Active Baltazar Childers MD Active [id number] 50-325-40 MG TABS 1 four time s a day as needed for heacache [id number] 29453491677 Active Baltazar Childers MD Active SUMATRIPTAN SUCCINATE 100 MG TABS 1 tablet by mouth at onset of migraine as needed SUMATRIPTAN SUCCINATE 36463652605 Active Shireen Miller APRN Active LORATADINE 10 MG TABS Take one by mouth daily LORATADINE 61904347395 Active Brad Hughes Active FUROSEMIDE 40 MG TABS Take one by mouth daily FUROSEMIDE 11019422881 Active Shireen Miller APRN Active LISINOPRIL 20 MG TABS Take one by mouth daily at bedtime LISINOPRIL 33070322254 Active Shireen Miller APRN Active OMEPRAZOLE 20 MG CPDR Take one by mouth daily OMEPRAZOLE 91131105352 Active Shireen Miller APRN Active HYDROXYZINE HCL 25 MG TABS Take one by mouth daily HYDROXYZINE HCL 67413790603 Active Shireen Miller APRN Active GLIPIZIDE 10 MG TABS 1 tablet by mouth twice daily GLIPIZIDE 50523827870 Active Shireen Miller APRN Active ALPRAZOLAM 1 MG TABS 1 tablet by mouth daily at bedtime for restles s leg ALPRAZOLAM 72286231021 Active Baltazar Childers MD Active METFORMIN HCL 1000 MG TABS Take one by mouth twice daily METFORMIN HCL 47610240053 Active Shireen Miller APRN Active TIZANIDINE HCL 4 MG TABS 1 daily as needed for muscle spasm 2011 TIZANIDINE HCL 4 MG TABS 339578 TIZANIDINE HCL Inactiv e PHENTERMINE HCL 37.5 MG TABS Take one by mouth daily 2 PHENTERMINE HCL 37.5 MG TABS 243111 PHENTERMINE HCL Inactive CRESTOR 10 MG TABS 1 by mouth every day C RESTOR 10 MG TABS ROSUVASTATIN CALCIUM Inactive LIPITOR 20 MG TABS Take one by mouth daily in evening LIPITOR 20 MG TABS 640796 ATORVASTATIN CALCIUM Inactive DEPO-TESTOSTERONE 200 MG/ML OIL as directed 8 DEPO-TESTOSTERONE 200 MG/ML OIL 634153 TESTOSTERONE CYPIONATE Inactive NAPROXEN 500 MG TABS 1 tablet by mouth twice daily 201 07/27/22 NAPROXEN 500 MG TABS 171368 NAPROXEN Inactive GABAPENTIN 300 MG CAPS 1 po qd x 2 days, then 1 po BID x 2 d ays, then 1 po TID GABAPENTIN 300 MG CAPS 775915 GABAPENTIN Inact amie Immunizations Vaccine Administration Date Value Standard Floyd cription pneumococcal immunization administered Pneumovax 23 [CVX33] pneumococcal polysaccharide vaccine, 23 valent Seasonal influenza vaccine, injectable, containing preservative, for > 3 years old (Afluria, FluLaval, Fluzone, Fluvirin, Fluarix, Agriflu(>= 18 yo)) Fluzone (>3 yrs.) [[id number]] Influenza, seasonal, inject able Seasonal influenza vaccine, injectable, containing preservative, for > 3 years old (Afluria, FluLaval, Fluzone, Fluvirin, Fluarix, Agriflu(>= 18 yo)) Fluzone (>3 yrs.) [[id number]] Influenza, seasonal, inject able Vital Signs Date [...] C - Chemistry sodium, serum 140 mmol/L 886-122 8094/02/26 potassium, serum 5.3 mmol/L 3.5-5.2 chloride, serum 101 mmol/L 98-107 carbon dioxide, venous blood 36.9 mmol/L 21.0-32 .0 blood glucose 151 mg/dL 65-110 calcium, serum 8.7 mg/dL 8.5-10.1 urea nitrogen, blood 19 mg/dL 7-18 creatinine, serum 1.60 mg/dL 0.60-1.30 hemoglobin A1C, blood, as % of total hemoglobin 7.9 % 4.3-6.0 Lab Report: CBC, Basic Metabolic Panel, HGBA1C - Chemistry potassium, serum 4.9 mmol/L 3.5-5.2 chloride, serum 98 mmol/L 98-107 carbon dioxide, venous blood 28.8 mmol/L 21.0-32 .0 blood glucose 116 mg/dL 65-110 calcium, serum 9.2 mg/dL 8.5-10.1 urea nitrogen, blood 24 mg/dL 7-18 creatinine, serum 2.00 mg/dL 0.60-1.30 hemoglobin A1C, blood, as % of total hemoglobin 7.1 % 4.3-6.0 sodium, serum 138 mmol/L 136-145 Lab Report: CBC, Basic Metabolic Panel, HGBA1C - Hematology platelet count 317 UL 10*3/mm3 395-756 9725/05/23 red blood cell distribution width 14.4 % 11 .6-14.8 mean corpuscular hemoglobin concentration, RBC 32.1 G/DL % 31.8-35.4 mean corpuscular hemoglobin, RBC 31.4 pg 27. 0-31.2 mean corpuscular volume, RBC 98 fL 80-97 [...] 0.39 mg/dL 0.00-1.00 cholesterol, serum 345 mg/dL 722-653 3025/08/26 triglyceride, serum, fasting 635 mg/dL 30-200 HDL [...] Panel - Chemistry sodium, serum 136 mmol/L 919-588 2604/01/06 potassium, serum 5.1 mmol/L 3.5-5.2 chloride, serum [...] Panel - Chemistry sodium, serum 139 mmol/L 804-952 7651/08/26 potassium, serum 5.8 mmol/L 3.5-5.2 chloride, serum 98 mmol/L 98-107 carbon dioxide, venous blood 33.0 mmol/L 21.0-32 .0 blood glucose 107 mg/dL 65-110 urea nitrogen, blood 26 mg/dL 7-18 creatinine, serum 1.80 mg/dL 0.60-1.30 calcium, serum 9.3 mg/dL 8.5-10.1 sodium, serum 138 mmol/L 177-096 1826/06/17 potassium, serum 4.9 mmol/L 3.5-5.2 chloride, serum [...] mg/dL Encounters Code Encounter Date Provider Facility CPT-63525 Level 4 Est. Patient 14:52:45 DOCUMENTATION DESIGNER [facility] CPT-19790 Level 4 Est. Patient 14:18:34 DOCUMENTATION DESIGNER [facility] CPT-25284 Level 4 Est. Patient 15:18:29 CDT [facility] CPT-48448 Level 3 Est. Patient 12:45:34 CDT [facility] CPT-20677 Level 3 Est. Patient 10:10:11 CDT [facility] CPT-61701 Level 3 Est. Patient 14:07:50 CDT [facility] CPT-76059 Level 4 Est. Patient 12:26:10 DOCUMENTATION DESIGNER Baltazar [facility] CPT-80338 Level 4 Est. Patient 14:45:38 CDT [facility] CPT-31345 Level 4 New Patient 12:30:48 CDT Bal[facility]zar [facility] Procedures Code Procedure Name Date Entry Date Standard Desc ription CPT-72042 First Vx Component - Ix admi n via ID IM or jet inj without physician counseling 15:17:19 DOCUMENTATION DESIGNER CPT-42069 Pneumovax 15:17:19 DOCUMENTATION DESIGNER CPT-98071 Pneumovax 14:52:45 DOCUMENTATION DESIGNER CPT-67662 Venipuncture Draw Fee 14:06:30 DOCUMENTATION DESIGNER CPT-000 Give Appropriate Flu Vaccine 14:18:34 DOCUMENTATION DESIGNER 2 CPT-39240 Administration single or combination vac cine inc oral 14:46:00 DOCUMENTATION DESIGNER CPT-17683 Influenza split virus > age 3 14:46:00 DOCUMENTATION DESIGNER CPT-OV Office Visit 19:13:16 CDT CPT-07526 Zostavax 18:41:56 CDT CPT-87904 Administration single or combination vac cine inc oral 12:56:39 CDT CPT-58914 Zoster Vaccine (Zostavax) 12:56:39 CDT 2012 CPT-62379 Venipuncture Draw Fee 10:58:57 CDT CPT-02019 Sono pelvis non OB uterus ovaries cervix 17:45:04 CDT CPT-03142 Sono retroperitoneal complete kidneys an d bladder 17:14:36 CDT CPT-OV Office Visit 14:59:38 DOCUMENTATION DESIGNER CPT-J1070 Depo Testosterone 100 mg 14:50:13 CDT 03/05 CPT-42247 Abx/Therapy Injection 14:50:13 CDT CPT-65873 Administration single or combination vac cine inc oral 14:34:43 CDT CPT-76131 Influenza split virus > age 3 14:34:43 CDT CPT-J1070 Depo Testosterone 100 mg 17:37:13 CDT 01/11 CPT-86421 Abx/Therapy Injection 17:37:13 CDT CPT-74346 Venipuncture Draw Fee 16:30:13 CDT CPT-78150 Venipuncture Draw Fee 16:29:43 CDT CPT-J1070 Depo Testosterone 100 mg 14:45:38 CDT 01/11
--- OUTSIDE RECORDS SUMMARY | 2019-10-27 13:53 | XMS REPORT | Clinical Summary ---
[...] libido COLON POLYPS 211.3 Resolved Lolis Thomas [employer] Benign neoplasm of colon PERIPHERAL NEUROPATHY 356.9 [...] y atherosclerosis of unspecified type of vessel, [place] or graft OTH NONSPC ABN FINDNG RAD&OTH [...] tab every 6-8 hour s PRN HYDROCODONE-ACETAMINOPHEN 59050801819 Active Baltazar Childers MD Active NORTRIPTYLINE HCL 50 MG CAPS 1 every night for neuropathy 4 NORTRIPTYLINE HCL 27165584632 Active Baltazar Childers MD Acti ve GABAPENTIN 300 MG CAPS 1 three times a day GABAPE NTIN 31928074368 Active Baltazar Childers MD Active GABAPENTIN 300 MG CAPS 1 po qd x 2 days, then 1 po BID x 2 d ays, then 1 po TID GABAPENTIN 53657590347 No Longer Active Baltazar silverman MD Active TRAMADOL HCL 50 MG TABS 1 twice a day as needed for pain TRAMADOL HCL 27353791016 Active Baltazar Childers MD Active NAPROXEN 500 MG TABS 1 tablet by mouth twice daily NAPROXEN 94167857233 No Longer Active Baltazar Childers MD Active PROAIR HFA 108 (90 BASE) MCG/ACT AERS 2 puffs four times a d ay as needed ALBUTEROL SULFATE 71881240680 Active Baltazar Childers MD Active DEPO-TESTOSTERONE 200 MG/ML OIL as directed RUFINO TOSTERONE CYPIONATE 51516308109 No Longer Active Baltazar Childers MD Active LIPITOR 20 MG TABS Take one by mouth daily in evening ATORVASTATIN CALCIUM 42063778914 No Longer Active Baltazar Childers MD Activ e CRESTOR 10 MG TABS 1 by mouth every day R OSUVASTATIN CALCIUM 64786097015 No Longer Active Baltazar Childers MD Activ e PHENTERMINE HCL 37.5 MG TABS Take one by mouth daily 2 PHENTERMINE HCL 69571003256 No Longer Active Baltazar Childers MD Activ e ROBAXIN-750 750 MG TABS Take one by mouth daily ME THOCARBAMOL 05641245134 Active Baltazar Childers MD Active TIZANIDINE HCL 4 MG TABS 1 daily as needed for muscle spasm 2011 TIZANIDINE HCL 75645438388 No Longer Active Dawna Salazar RN Active ONETOUCH ULTRA BLUE STRP Test twice a day GLUCO SE BLOOD 33316712327 Active Baltazar Childers MD Active [id number]-MQAT-MJEWIEST 50-325-40 MG TABS 1 four time s a day as needed for heacache [id number] 97640000579 Active Baltazar Childers MD Active SUMATRIPTAN SUCCINATE 100 MG TABS 1 tablet by mouth at onset of migraine as needed SUMATRIPTAN SUCCINATE 90047938986 Active Baltazar bynum MD Active LORATADINE 10 MG TABS Take one by mouth daily LORATADINE 32894922092 Active Baltazar Childers MD Active FUROSEMIDE 40 MG TABS Take one by mouth daily FUROSEMIDE 92892749056 Active Baltazar Childers MD Active LISINOPRIL 20 MG TABS Take one by mouth daily at bedtime LISINOPRIL 58840912267 Active Baltazar Childers MD Active OMEPRAZOLE 20 MG CPDR Take one by mouth daily OMEPRAZOLE 40937317462 Active Baltazar Childers MD Active HYDROXYZINE HCL 25 MG TABS Take one by mouth daily HYDROXYZINE HCL 55037070404 Active Baltazar Childers MD Active GLIPIZIDE 10 MG TABS 1 tablet by mouth twice daily GLIPIZIDE 28274988812 Active Baltazar Childers MD Active ALPRAZOLAM 1 MG TABS 1 tablet by mouth daily at bedtime for restles s leg ALPRAZOLAM 39492096023 Active Baltazar Childers MD Active METFORMIN HCL 1000 MG TABS Take one by mouth twice daily METFORMIN HCL 69120544842 Active Baltazar Childers MD Active TIZANIDINE HCL 4 MG TABS 1 daily as needed for muscle spasm 2011 TIZANIDINE HCL 4 MG TABS 847973 TIZANIDINE HCL Inactiv e PHENTERMINE HCL 37.5 MG TABS Take one by mouth daily 2 PHENTERMINE HCL 37.5 MG TABS 131245 PHENTERMINE HCL Inactive CRESTOR 10 MG TABS 1 by mouth every day C RESTOR 10 MG TABS ROSUVASTATIN CALCIUM Inactive LIPITOR 20 MG TABS Take one by mouth daily in evening LIPITOR 20 MG TABS 675234 ATORVASTATIN CALCIUM Inactive DEPO-TESTOSTERONE 200 MG/ML OIL as directed 8 DEPO-TESTOSTERONE 200 MG/ML OIL 436086 TESTOSTERONE CYPIONATE Inactive NAPROXEN 500 MG TABS 1 tablet by mouth twice daily 201 07/27/22 NAPROXEN 500 MG TABS 523909 NAPROXEN Inactive GABAPENTIN 300 MG CAPS 1 po qd x 2 days, then 1 po BID x 2 d ays, then 1 po TID GABAPENTIN 300 MG CAPS 561800 GABAPENTIN Inact amie Immunizations Vaccine Administration Date Value Standard Floyd cription pneumococcal immunization administered Pneumovax 23 [CVX33] pneumococcal polysaccharide vaccine, 23 valent Seasonal influenza vaccine, injectable, containing preservative, for > 3 years old (Afluria, FluLaval, Fluzone, Fluvirin, Fluarix, Agriflu(>= 18 yo)) Fluzone (>3 yrs.) [ZMQ014] Influenza, seasonal, inject able Seasonal influenza vaccine, injectable, containing preservative, for > 3 years old (Afluria, FluLaval, Fluzone, Fluvirin, Fluarix, Agriflu(>= 18 yo)) Fluzone (>3 yrs.) [[id number]] Influenza, seasonal, inject able Vital Signs Date [...] C - Chemistry sodium, serum 140 mmol/L 089-684 3882/02/26 potassium, serum 5.3 mmol/L 3.5-5.2 chloride, serum [...] 0.39 mg/dL 0.00-1.00 cholesterol, serum 345 mg/dL 152-999 3834/08/26 triglyceride, serum, fasting 635 mg/dL 30-200 HDL [...] Panel - Chemistry sodium, serum 136 mmol/L 255-089 2919/01/06 potassium, serum 5.1 mmol/L 3.5-5.2 chloride, serum [...] Panel - Chemistry sodium, serum 139 mmol/L 639-666 3107/08/26 potassium, serum 5.8 mmol/L 3.5-5.2 chloride, serum [...] mg/dL Encounters Code Encounter Date Provider Facility CPT-95086 Level 4 Est. Patient 12:20:13 CDT Baltazar Childers MD [facility] CPT-49655 Level 4 Est. Patient 14:52:45 [employer] Baltazar Childers MD [facility] CPT-13942 Level 4 Est. Patient 14:18:34 [employer] Baltazar Childers MD [facility] CPT-34897 Level 4 Est. Patient 15:18:29 CDT Baltazar Childers MD [facility] CPT-42544 Level 3 Est. Patient 12:45:34 CDT Baltazar Childers MD [facility] CPT-84172 Level 3 Est. Patient 10:10:11 CDT Baltazar Childers MD [facility] CPT-84429 Level 3 Est. Patient 14:07:50 CDT Baltazar Childers MD [facility] CPT-22899 Level 4 Est. Patient 12:26:10 [employer] Baltazar Childers MD [facility] CPT-95077 Level 4 Est. Patient 14:45:38 CDT Baltazar Childers MD [facility] CPT-84352 Level 4 New Patient 12:30:48 CDT Baltazar hinton MD [facility] Procedures Code Procedure Name Date Entry Date Standard Desc ription CPT-03526 First Vx Component - Ix admi n via ID IM or jet inj without physician counseling 15:17:19 [employer] CPT-26923 Pneumovax 15:17:19 [employer] CPT-38099 Pneumovax 14:52:45 [employer] CPT-10741 Venipuncture Draw Fee 14:06:30 [employer] CPT-000 Give Appropriate Flu Vaccine 14:18:34 [employer] 2 CPT-11678 Administration single or combination vac cine inc oral 14:46:00 [employer] CPT-05998 Influenza split virus > age 3 14:46:00 [employer] CPT-OV Office Visit 19:13:16 CDT CPT-56058 Zostavax 18:41:56 CDT CPT-34507 Administration single or combination vac cine inc oral 12:56:39 CDT CPT-87564 Zoster Vaccine (Zostavax) 12:56:39 CDT 2012 CPT-11881 Venipuncture Draw Fee 10:58:57 CDT CPT-21431 Sono pelvis non OB uterus ovaries cervix 17:45:04 CDT CPT-54599 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
--- OUTSIDE RECORDS SUMMARY | 2019-10-27 13:53 | XMS REPORT | Clinical Summary ---
[...] y atherosclerosis of unspecified type of vessel, [place] [...] tab every 6-8 hour s PRN HYDROCODONE-ACETAMINOPHEN 43956595125 Active Baltazar Childers MD Active NORTRIPTYLINE HCL 50 MG CAPS 1 every night for neuropathy 4 NORTRIPTYLINE HCL 32278768494 Active Baltazar Childers MD Acti ve GABAPENTIN 300 MG CAPS 1 three times a day GABAPE NTIN 74477686740 Active Baltazar Childers MD Active GABAPENTIN 300 MG CAPS 1 po qd x 2 days, then 1 po BID x 2 d ays, then 1 po TID GABAPENTIN 37579557128 No Longer Active Baltazar silverman MD Active TRAMADOL HCL 50 MG TABS 1 twice a day as needed for pain TRAMADOL HCL 61903722786 Active Baltazar Childers MD Active NAPROXEN 500 MG TABS 1 tablet by mouth twice daily NAPROXEN 10082851047 No Longer Active Baltazar Childers MD Active PROAIR HFA 108 (90 BASE) MCG/ACT AERS 2 puffs four times a d ay as needed ALBUTEROL SULFATE 47763724217 Active Baltazar Childers MD Active DEPO-TESTOSTERONE 200 MG/ML OIL as directed RUFINO TOSTERONE CYPIONATE 73171192603 No Longer Active Baltazar Childers MD Active LIPITOR 20 MG TABS Take one by mouth daily in evening ATORVASTATIN CALCIUM 81383384824 No Longer Active Baltazar Childers MD Activ e CRESTOR 10 MG TABS 1 by mouth every day R OSUVASTATIN CALCIUM 14767911212 No Longer Active Baltazar Childers MD Activ e PHENTERMINE HCL 37.5 MG TABS Take one by mouth daily 2 PHENTERMINE HCL 62438518460 No Longer Active Baltazar Childers MD Activ e ROBAXIN-750 750 MG TABS Take one by mouth daily ME THOCARBAMOL 87716778406 Active Baltazar Childers MD Active TIZANIDINE HCL 4 MG TABS 1 daily as needed for muscle spasm 2011 TIZANIDINE HCL 15134706268 No Longer Active Dawna Salazar RN Active ONETOUCH ULTRA BLUE STRP Test twice a day GLUCO SE BLOOD 67013307913 Active Baltazar Childers MD Active WISEMPLRRR-CWJE-OEFALUYH 50-325-40 MG TABS 1 four time s a day as needed for heacache MLDGODWLYD-EEPG-ZDBFMUHC 61510501771 Active Baltazar Childers MD Active SUMATRIPTAN SUCCINATE 100 MG TABS 1 tablet by mouth at onset of migraine as needed SUMATRIPTAN SUCCINATE 78773882800 Active Shireen Miller APRN Active LORATADINE 10 MG TABS Take one by mouth daily LORATADINE 36268057152 Active Brad Hughes Active FUROSEMIDE 40 MG TABS Take one by mouth daily FUROSEMIDE 42288309699 Active Shireen Miller APRN Active LISINOPRIL 20 MG TABS Take one by mouth daily at bedtime LISINOPRIL 81578595099 Active Shireen Miller APRN Active OMEPRAZOLE 20 MG CPDR Take one by mouth daily OMEPRAZOLE 85239344869 Active Shireen Miller APRN Active HYDROXYZINE HCL 25 MG TABS Take one by mouth daily HYDROXYZINE HCL 45517620848 Active Shireen Miller APRN Active GLIPIZIDE 10 MG TABS 1 tablet by mouth twice daily GLIPIZIDE 02520905081 Active Shireen Miller APRN Active ALPRAZOLAM 1 MG TABS 1 tablet by mouth daily at bedtime for restles s leg ALPRAZOLAM 11735755820 Active Baltazar Childers MD Active METFORMIN HCL 1000 MG TABS Take one by mouth twice daily METFORMIN HCL 42056083913 Active Shireen Miller APRN Active TIZANIDINE HCL 4 MG TABS 1 daily as needed for muscle spasm 2011 TIZANIDINE HCL 4 MG TABS 790146 TIZANIDINE HCL Inactiv e PHENTERMINE HCL 37.5 MG TABS Take one by mouth daily 2 PHENTERMINE HCL 37.5 MG TABS 144092 PHENTERMINE HCL Inactive CRESTOR 10 MG TABS 1 by mouth every day C RESTOR 10 MG TABS ROSUVASTATIN CALCIUM Inactive LIPITOR 20 MG TABS Take one by mouth daily in evening LIPITOR 20 MG TABS 373462 ATORVASTATIN CALCIUM Inactive DEPO-TESTOSTERONE 200 MG/ML OIL as directed 8 DEPO-TESTOSTERONE 200 MG/ML OIL 671198 TESTOSTERONE CYPIONATE Inactive NAPROXEN 500 MG TABS 1 tablet by mouth twice daily 201 07/27/22 NAPROXEN 500 MG TABS 056194 NAPROXEN Inactive GABAPENTIN 300 MG CAPS 1 po qd x 2 days, then 1 po BID x 2 d ays, then 1 po TID GABAPENTIN 300 MG CAPS 802098 GABAPENTIN Inact amie Immunizations Vaccine Administration Date Value Standard Floyd cription pneumococcal immunization administered Pneumovax 23 [CVX33] pneumococcal polysaccharide vaccine, 23 valent Seasonal influenza vaccine, injectable, containing preservative, for > 3 years old (Afluria, FluLaval, Fluzone, Fluvirin, Fluarix, Agriflu(>= 18 yo)) Fluzone (>3 yrs.) [PJS239] Influenza, seasonal, inject able Seasonal influenza vaccine, injectable, containing preservative, for > 3 years old (Afluria, FluLaval, Fluzone, Fluvirin, Fluarix, Agriflu(>= 18 yo)) Fluzone (>3 yrs.) [KDS549] Influenza, seasonal, inject able Vital Signs Date [...] C - Chemistry sodium, serum 140 mmol/L 101-854 4767/02/26 potassium, serum 5.3 mmol/L 3.5-5.2 chloride, serum 101 mmol/L 98-107 carbon dioxide, venous blood 36.9 mmol/L 21.0-32 .0 blood glucose 151 mg/dL 65-110 calcium, serum 8.7 mg/dL 8.5-10.1 urea nitrogen, blood 19 mg/dL 7-18 creatinine, serum 1.60 mg/dL 0.60-1.30 hemoglobin A1C, blood, as % of total hemoglobin 7.9 % 4.3-6.0 Lab Report: CBC, Basic Metabolic Panel, HGBA1C - Chemistry sodium, serum 138 mmol/L 197-321 6254/05/23 potassium, serum 4.9 mmol/L 3.5-5.2 chloride, serum [...] 0.39 mg/dL 0.00-1.00 cholesterol, serum 345 mg/dL 584-337 1045/08/26 triglyceride, serum, fasting 635 mg/dL 30-200 HDL [...] Panel - Chemistry sodium, serum 136 mmol/L 711-603 7378/01/06 potassium, serum 5.1 mmol/L 3.5-5.2 chloride, serum [...] Panel - Chemistry sodium, serum 139 mmol/L 587-214 4810/08/26 potassium, serum 5.8 mmol/L 3.5-5.2 chloride, serum 98 mmol/L 98-107 carbon dioxide, venous blood 33.0 mmol/L 21.0-32 .0 blood glucose 107 mg/dL 65-110 urea nitrogen, blood 26 mg/dL 7-18 creatinine, serum 1.80 mg/dL 0.60-1.30 calcium, serum 9.3 mg/dL 8.5-10.1 sodium, serum 138 mmol/L 651-539 6189/06/17 potassium, serum 4.9 mmol/L 3.5-5.2 chloride, serum [...] mg/dL Encounters Code Encounter Date Provider Facility CPT-82529 Level 4 Est. Patient 14:52:45 [employer] Baltazar Childers MD [facility] CPT-28288 Level 4 Est. Patient 14:18:34 [employer] Baltazar Childers MD [facility] CPT-83545 Level 4 Est. Patient 15:18:29 CDT Baltazar Childers MD [facility] CPT-06818 Level 3 Est. Patient 12:45:34 CDT Baltazar Childers MD [facility] CPT-43121 Level 3 Est. Patient 10:10:11 CDT Baltazar Childers MD [facility] CPT-04679 Level 3 Est. Patient 14:07:50 CDT Baltazar Childers MD [facility] CPT-38425 Level 4 Est. Patient 12:26:10 [employer] Baltazar Childers MD [facility] CPT-95952 Level 4 Est. Patient 14:45:38 CDT Baltazar Childers MD [facility] CPT-35584 Level 4 New Patient 12:30:48 CDT Baltazar hinton MD [facility] Procedures Code Procedure Name Date Entry Date Standard Desc ription CPT-35107 First Vx Component - Ix admi n via ID IM or jet inj without physician counseling 15:17:19 [employer] CPT-41959 Pneumovax 23 15:17:19 [employer] CPT-90783 Pneumovax 14:52:45 [employer] CPT-46609 Venipuncture Draw Fee 14:06:30 [employer] CPT-000 Give Appropriate Flu Vaccine 14:18:34 [employer] 2 CPT-48109 Administration single or combination vac cine inc oral 14:46:00 [employer] CPT-61592 Influenza split virus > age 3 14:46:00 [employer] CPT-OV Office Visit 19:13:16 CDT CPT-43957 Zostavax 18:41:56 CDT CPT-98460 Administration single or combination vac cine inc oral 12:56:39 CDT CPT-50687 Zoster Vaccine (Zostavax) 12:56:39 CDT 2012 CPT-89079 Venipuncture Draw Fee 10:58:57 CDT CPT-47679 Sono pelvis non OB uterus ovaries cervix 17:45:04 CDT CPT-75035 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
--- OUTSIDE RECORDS SUMMARY | 2019-10-27 13:53 | XMS REPORT | Clinical Summary ---
Author Author Admin, [facility] Address Unknown Phone Allergies, Adverse Reactions, Alerts [...] y atherosclerosis of unspecified type of vessel, [place] [...] tab every 6-8 hour s PRN HYDROCODONE-ACETAMINOPHEN 72326057886 Active Baltazar Childers MD Active NORTRIPTYLINE HCL 50 MG CAPS 1 every night for neuropathy 4 NORTRIPTYLINE HCL 19692385048 Active Baltazar Childers MD Acti ve GABAPENTIN 300 MG CAPS 1 three times a day GABAPE NTIN 71463521931 Active Baltazar Childers MD Active GABAPENTIN 300 MG CAPS 1 po qd x 2 days, then 1 po BID x 2 d ays, then 1 po TID GABAPENTIN 25857765272 No Longer Active Baltazar silverman MD Active TRAMADOL HCL 50 MG TABS 1 twice a day as needed for pain TRAMADOL HCL 59546783121 Active Baltazar Childers MD Active NAPROXEN 500 MG TABS 1 tablet by mouth twice daily NAPROXEN 34579078778 No Longer Active Baltazar Childers MD Active PROAIR HFA 108 (90 BASE) MCG/ACT AERS 2 puffs four times a d ay as needed ALBUTEROL SULFATE 90626932165 Active Baltazar Childers MD Active DEPO-TESTOSTERONE 200 MG/ML OIL as directed RUFINO TOSTERONE CYPIONATE 77990884628 No Longer Active Baltazar Childers MD Active LIPITOR 20 MG TABS Take one by mouth daily in evening ATORVASTATIN CALCIUM 25945249969 No Longer Active Baltazar Childers MD Activ e CRESTOR 10 MG TABS 1 by mouth every day R OSUVASTATIN CALCIUM 44780911490 No Longer Active Baltazar Childers MD Activ e PHENTERMINE HCL 37.5 MG TABS Take one by mouth daily 2 PHENTERMINE HCL 78989163673 No Longer Active Baltazar Childers MD Activ e ROBAXIN-750 750 MG TABS Take one by mouth daily ME THOCARBAMOL 93301860924 Active Baltazar Childers MD Active TIZANIDINE HCL 4 MG TABS 1 daily as needed for muscle spasm 2011 TIZANIDINE HCL 24668627200 No Longer Active Dawna Salazar RN Active ONETOUCH ULTRA BLUE STRP Test twice a day GLUCO SE BLOOD 77567549180 Active Baltazar Childers MD Active [id number] 50-325-40 MG TABS 1 four time s a day as needed for heacache [id number] 61345061459 Active Baltazar Childers MD Active SUMATRIPTAN SUCCINATE 100 MG TABS 1 tablet by mouth at onset of migraine as needed SUMATRIPTAN SUCCINATE 95805391712 Active Shireen Miller APRN Active LORATADINE 10 MG TABS Take one by mouth daily LORATADINE 73897324793 Active Brad Hughes Active FUROSEMIDE 40 MG TABS Take one by mouth daily FUROSEMIDE 92459125468 Active Shireen Miller APRN Active LISINOPRIL 20 MG TABS Take one by mouth daily at bedtime LISINOPRIL 61567459244 Active Shireen Miller APRN Active OMEPRAZOLE 20 MG CPDR Take one by mouth daily OMEPRAZOLE 06244077001 Active Shireen Miller APRN Active HYDROXYZINE HCL 25 MG TABS Take one by mouth daily HYDROXYZINE HCL 56830982229 Active Shireen Miller APRN Active GLIPIZIDE 10 MG TABS 1 tablet by mouth twice daily GLIPIZIDE 55921275955 Active Shireen Miller APRN Active ALPRAZOLAM 1 MG TABS 1 tablet by mouth daily at bedtime for restles s leg ALPRAZOLAM 97142495433 Active Baltazar Childers MD Active METFORMIN HCL 1000 MG TABS Take one by mouth twice daily METFORMIN HCL 20591260888 Active Shireen Miller APRN Active TIZANIDINE HCL 4 MG TABS 1 daily as needed for muscle spasm 2011 TIZANIDINE HCL 4 MG TABS 810437 TIZANIDINE HCL Inactiv e PHENTERMINE HCL 37.5 MG TABS Take one by mouth daily 2 PHENTERMINE HCL 37.5 MG TABS 047805 PHENTERMINE HCL Inactive CRESTOR 10 MG TABS 1 by mouth every day C RESTOR 10 MG TABS ROSUVASTATIN CALCIUM Inactive LIPITOR 20 MG TABS Take one by mouth daily in evening LIPITOR 20 MG TABS 531993 ATORVASTATIN CALCIUM Inactive DEPO-TESTOSTERONE 200 MG/ML OIL as directed 8 DEPO-TESTOSTERONE 200 MG/ML OIL 726520 TESTOSTERONE CYPIONATE Inactive NAPROXEN 500 MG TABS 1 tablet by mouth twice daily 201 07/27/22 NAPROXEN 500 MG TABS 041215 NAPROXEN Inactive GABAPENTIN 300 MG CAPS 1 po qd x 2 days, then 1 po BID x 2 d ays, then 1 po TID GABAPENTIN 300 MG CAPS 190411 GABAPENTIN Inact amie Immunizations Vaccine Administration Date Value Standard Floyd cription pneumococcal immunization administered Pneumovax 23 [CVX33] pneumococcal polysaccharide vaccine, 23 valent Seasonal influenza vaccine, injectable, containing preservative, for > 3 years old (Afluria, FluLaval, Fluzone, Fluvirin, Fluarix, Agriflu(>= 18 yo)) Fluzone (>3 yrs.) [[id number]] Influenza, seasonal, inject able Seasonal influenza vaccine, injectable, containing preservative, for > 3 years old (Afluria, FluLaval, Fluzone, Fluvirin, Fluarix, Agriflu(>= 18 yo)) Fluzone (>3 yrs.) [[id number]] Influenza, seasonal, inject able Vital Signs Date [...] mg/dL Chart Maintenance: Outside labs entered on tok tok tokheet - Hematology hemoglobin, blood 10.9 g/dL hematocrit, blood 33.7 % mean corpuscular volume, RBC 96 fL mean corpuscular hemoglobin, RBC 31.1 pg red blood cell distribution width 14.0 % Lab Report: Basic Metabolic Panel, HGBA1 C - Chemistry sodium, serum 140 mmol/L 132-426 6336/02/26 potassium, serum 5.3 mmol/L 3.5-5.2 chloride, serum 101 mmol/L 98-107 carbon dioxide, venous blood 36.9 mmol/L 21.0-32 .0 blood glucose 151 mg/dL 65-110 calcium, serum 8.7 mg/dL 8.5-10.1 urea nitrogen, blood 19 mg/dL 7-18 creatinine, serum 1.60 mg/dL 0.60-1.30 hemoglobin A1C, blood, as % of total hemoglobin 7.9 % 4.3-6.0 Lab Report: CBC, Basic Metabolic Panel, HGBA1C - Chemistry sodium, serum 138 mmol/L 186-300 6439/05/23 potassium, serum 4.9 mmol/L 3.5-5.2 chloride, serum [...] 0.39 mg/dL 0.00-1.00 cholesterol, serum 345 mg/dL 666-364 7797/08/26 triglyceride, serum, fasting 635 mg/dL 30-200 HDL [...] Panel - Chemistry sodium, serum 136 mmol/L 809-251 4934/01/06 potassium, serum 5.1 mmol/L 3.5-5.2 chloride, serum [...] Panel - Chemistry sodium, serum 139 mmol/L 074-922 3817/08/26 potassium, serum 5.8 mmol/L 3.5-5.2 chloride, serum 98 mmol/L 98-107 carbon dioxide, venous blood 33.0 mmol/L 21.0-32 .0 blood glucose 107 mg/dL 65-110 urea nitrogen, blood 26 mg/dL 7-18 creatinine, serum 1.80 mg/dL 0.60-1.30 calcium, serum 9.3 mg/dL 8.5-10.1 sodium, serum 138 mmol/L 706-348 5048/06/17 potassium, serum 4.9 mmol/L 3.5-5.2 chloride, serum [...] mg/dL Encounters Code Encounter Date Provider Facility CPT-81869 Level 4 Est. Patient 14:52:45 UNDERCOLLAR BASTER Baltazar Childers MD [facility] CPT-33307 Level 4 Est. Patient 14:18:34 UNDERCOLLAR BASTER Baltazar Childers MD [facility] CPT-98698 Level 4 Est. Patient 15:18:29 CDT Baltazar Childers MD [facility] CPT-82477 Level 3 Est. Patient 12:45:34 CDT Baltazar Childers MD [facility] CPT-74521 Level 3 Est. Patient 10:10:11 CDT Baltazar Childers MD [facility] CPT-57414 Level 3 Est. Patient 14:07:50 CDT Baltazar Childers MD [facility] CPT-35912 Level 4 Est. Patient 12:26:10 UNDERCOLLAR BASTER Baltazar Childers MD [facility] CPT-78662 Level 4 Est. Patient 14:45:38 CDT Baltazar Childers MD [facility] CPT-94130 Level 4 New Patient 12:30:48 CDT Baltazar hinton MD [facility] Procedures Code Procedure Name Date Entry Date Standard Desc ription CPT-98183 First Vx Component - Ix admi n via ID IM or jet inj without physician counseling 15:17:19 UNDERCOLLAR BASTER CPT-17841 Pneumovax 15:17:19 UNDERCOLLAR BASTER CPT-76923 Pneumovax 14:52:45 UNDERCOLLAR BASTER CPT-91516 Venipuncture Draw Fee 14:06:30 UNDERCOLLAR BASTER CPT-000 Give Appropriate Flu Vaccine 14:18:34 UNDERCOLLAR BASTER 2 CPT-85432 Administration single or combination vac cine inc oral 14:46:00 UNDERCOLLAR BASTER CPT-51083 Influenza split virus > age 3 14:46:00 UNDERCOLLAR BASTER CPT-OV Office Visit 19:13:16 CDT CPT-40415 Zostavax 18:41:56 CDT CPT-82862 Administration single or combination vac cine inc oral 12:56:39 CDT CPT-97257 Zoster Vaccine (Zostavax) 12:56:39 CDT 2012 CPT-74827 Venipuncture Draw Fee 10:58:57 CDT CPT-64654 Sono pelvis non OB uterus ovaries cervix 17:45:04 CDT CPT-14829 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
[2019-10-27 13:54] LABS: ALLENS TEST POSITIVE; INSPIRED O2 2; PATIENT TEMP 37.3; VENTILATOR NO
--- OUTSIDE RECORDS SUMMARY | 2019-10-27 13:54 | XMS REPORT | Clinical Summary ---
Author Author Admin, [facility] Address Unknown Phone Allergies, Adverse Reactions, Alerts [...] y atherosclerosis of unspecified type of vessel, [place] [...] tab every 6-8 hour s PRN HYDROCODONE-ACETAMINOPHEN 38331391302 Active Baltazar Childers MD Active NORTRIPTYLINE HCL 50 MG CAPS 1 every night for neuropathy 4 NORTRIPTYLINE HCL 66732428870 Active Baltazar Childers MD Acti ve GABAPENTIN 300 MG CAPS 1 three times a day GABAPE NTIN 57529423441 Active Baltazar Childers MD Active GABAPENTIN 300 MG CAPS 1 po qd x 2 days, then 1 po BID x 2 d ays, then 1 po TID GABAPENTIN 30165228151 No Longer Active Baltazar silverman MD Active TRAMADOL HCL 50 MG TABS 1 twice a day as needed for pain TRAMADOL HCL 45542127795 Active Baltazar Childers MD Active NAPROXEN 500 MG TABS 1 tablet by mouth twice daily NAPROXEN 25212885600 No Longer Active Baltazar Childers MD Active PROAIR HFA 108 (90 BASE) MCG/ACT AERS 2 puffs four times a d ay as needed ALBUTEROL SULFATE 90445069338 Active Baltazar Childers MD Active DEPO-TESTOSTERONE 200 MG/ML OIL as directed RUFINO TOSTERONE CYPIONATE 72853760404 No Longer Active Baltazar Childers MD Active LIPITOR 20 MG TABS Take one by mouth daily in evening ATORVASTATIN CALCIUM 92364811022 No Longer Active Baltazar Childers MD Activ e CRESTOR 10 MG TABS 1 by mouth every day R OSUVASTATIN CALCIUM 48171961058 No Longer Active Baltazar Childers MD Activ e PHENTERMINE HCL 37.5 MG TABS Take one by mouth daily 2 PHENTERMINE HCL 93692601344 No Longer Active Baltazar Childers MD Activ e ROBAXIN-750 750 MG TABS Take one by mouth daily ME THOCARBAMOL 37679739811 Active Baltazar Childers MD Active TIZANIDINE HCL 4 MG TABS 1 daily as needed for muscle spasm 2011 TIZANIDINE HCL 06427406527 No Longer Active Dawna Salazar RN Active ONETOUCH ULTRA BLUE STRP Test twice a day GLUCO SE BLOOD 36467935909 Active Baltazar Childers MD Active [id number]-[id number]-[id number] 50-325-40 MG TABS 1 four time s a day as needed for heacache [id number]-[id number] 11926077436 Active Baltazar Childers MD Active SUMATRIPTAN SUCCINATE 100 MG TABS 1 tablet by mouth at onset of migraine as needed SUMATRIPTAN SUCCINATE 06270728557 Active Shireen Miller APRN Active LORATADINE 10 MG TABS Take one by mouth daily LORATADINE 81014233031 Active Brad Hughes Active FUROSEMIDE 40 MG TABS Take one by mouth daily FUROSEMIDE 07868353848 Active Shireen Miller APRN Active LISINOPRIL 20 MG TABS Take one by mouth daily at bedtime LISINOPRIL 14160612563 Active Shireen Miller APRN Active OMEPRAZOLE 20 MG CPDR Take one by mouth daily OMEPRAZOLE 13766724997 Active Shireen Miller APRN Active HYDROXYZINE HCL 25 MG TABS Take one by mouth daily HYDROXYZINE HCL 10821017695 Active Shireen Miller APRN Active GLIPIZIDE 10 MG TABS 1 tablet by mouth twice daily GLIPIZIDE 87628782707 Active Shireen Miller APRN Active ALPRAZOLAM 1 MG TABS 1 tablet by mouth daily at bedtime for restles s leg ALPRAZOLAM 20197315139 Active Baltazar Childers MD Active METFORMIN HCL 1000 MG TABS Take one by mouth twice daily METFORMIN HCL 37551626787 Active Shireen Miller APRN Active TIZANIDINE HCL 4 MG TABS 1 daily as needed for muscle spasm 2011 TIZANIDINE HCL 4 MG TABS 057993 TIZANIDINE HCL Inactiv e PHENTERMINE HCL 37.5 MG TABS Take one by mouth daily 2 PHENTERMINE HCL 37.5 MG TABS 822791 PHENTERMINE HCL Inactive CRESTOR 10 MG TABS 1 by mouth every day C RESTOR 10 MG TABS ROSUVASTATIN CALCIUM Inactive LIPITOR 20 MG TABS Take one by mouth daily in evening LIPITOR 20 MG TABS 127537 ATORVASTATIN CALCIUM Inactive DEPO-TESTOSTERONE 200 MG/ML OIL as directed 8 DEPO-TESTOSTERONE 200 MG/ML OIL 834209 TESTOSTERONE CYPIONATE Inactive NAPROXEN 500 MG TABS 1 tablet by mouth twice daily 201 07/27/22 NAPROXEN 500 MG TABS 837152 NAPROXEN Inactive GABAPENTIN 300 MG CAPS 1 po qd x 2 days, then 1 po BID x 2 d ays, then 1 po TID GABAPENTIN 300 MG CAPS 662324 GABAPENTIN Inact amie Immunizations Vaccine Administration Date Value Standard Floyd cription pneumococcal immunization administered Pneumovax 23 [CVX33] pneumococcal polysaccharide vaccine, 23 valent Seasonal influenza vaccine, injectable, containing preservative, for > 3 years old (Afluria, FluLaval, Fluzone, Fluvirin, Fluarix, Agriflu(>= 18 yo)) Fluzone (>3 yrs.) [AQA265] Influenza, seasonal, inject able Seasonal influenza vaccine, injectable, containing preservative, for > 3 years old (Afluria, FluLaval, Fluzone, Fluvirin, Fluarix, Agriflu(>= 18 yo)) Fluzone (>3 yrs.) [BFC833] Influenza, seasonal, inject able Vital Signs Date [...] C - Chemistry sodium, serum 140 mmol/L 360-284 7668/02/26 potassium, serum 5.3 mmol/L 3.5-5.2 chloride, serum 101 mmol/L 98-107 carbon dioxide, venous blood 36.9 mmol/L 21.0-32 .0 blood glucose 151 mg/dL 65-110 calcium, serum 8.7 mg/dL 8.5-10.1 urea nitrogen, blood 19 mg/dL 7-18 creatinine, serum 1.60 mg/dL 0.60-1.30 hemoglobin A1C, blood, as % of total hemoglobin 7.9 % 4.3-6.0 Lab Report: CBC, Basic Metabolic Panel, HGBA1C - Chemistry sodium, serum 138 mmol/L 614-011 6517/05/23 potassium, serum 4.9 mmol/L 3.5-5.2 chloride, serum [...] 0.39 mg/dL 0.00-1.00 cholesterol, serum 345 mg/dL 025-879 7672/08/26 triglyceride, serum, fasting 635 mg/dL 30-200 HDL [...] Panel - Chemistry sodium, serum 136 mmol/L 869-925 7714/01/06 potassium, serum 5.1 mmol/L 3.5-5.2 chloride, serum [...] Panel - Chemistry sodium, serum 139 mmol/L 847-993 6891/08/26 potassium, serum 5.8 mmol/L 3.5-5.2 chloride, serum 98 mmol/L 98-107 carbon dioxide, venous blood 33.0 mmol/L 21.0-32 .0 blood glucose 107 mg/dL 65-110 urea nitrogen, blood 26 mg/dL 7-18 creatinine, serum 1.80 mg/dL 0.60-1.30 calcium, serum 9.3 mg/dL 8.5-10.1 sodium, serum 138 mmol/L 082-093 3315/06/17 potassium, serum 4.9 mmol/L 3.5-5.2 chloride, serum [...] mg/dL Encounters Code Encounter Date Provider Facility CPT-93785 Level 4 Est. Patient 14:52:45 BAKERY TECHNICIAN Baltazar Childers MD [facility] CPT-12459 Level 4 Est. Patient 14:18:34 BAKERY TECHNICIAN Baltazar Childers MD [facility] CPT-10108 Level 4 Est. Patient 15:18:29 CDT Baltazar Childers MD [facility] CPT-09452 Level 3 Est. Patient 12:45:34 CDT Baltazar Childers MD [facility] CPT-35521 Level 3 Est. Patient 10:10:11 CDT Baltazar Childers MD [facility] CPT-73952 Level 3 Est. Patient 14:07:50 CDT Baltazar Childers MD [facility] CPT-72981 Level 4 Est. Patient 12:26:10 BAKERY TECHNICIAN Baltazar Childers MD [facility] CPT-29235 Level 4 Est. Patient 14:45:38 CDT Baltazar Childers MD [facility] CPT-18738 Level 4 New Patient 12:30:48 CDT Baltazar hinton MD [facility] Procedures Code Procedure Name Date Entry Date Standard Desc ription CPT-19062 First Vx Component - Ix admi n via ID IM or jet inj without physician counseling 15:17:19 BAKERY TECHNICIAN CPT-90725 Pneumovax 15:17:19 BAKERY TECHNICIAN CPT-34464 Pneumovax 14:52:45 BAKERY TECHNICIAN CPT-17402 Venipuncture Draw Fee 14:06:30 BAKERY TECHNICIAN CPT-000 Give Appropriate Flu Vaccine 14:18:34 BAKERY TECHNICIAN 2 CPT-82895 Administration single or combination vac cine inc oral 14:46:00 BAKERY TECHNICIAN CPT-19485 Influenza split virus > age 3 14:46:00 BAKERY TECHNICIAN CPT-OV Office Visit 19:13:16 CDT CPT-88065 Zostavax 18:41:56 CDT CPT-35849 Administration single or combination vac cine inc oral 12:56:39 CDT CPT-38308 Zoster Vaccine (Zostavax) 12:56:39 CDT 2012 CPT-61152 Venipuncture Draw Fee 10:58:57 CDT CPT-18539 Sono pelvis non OB uterus ovaries cervix 17:45:04 CDT CPT-23002 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
--- OUTSIDE RECORDS SUMMARY | 2019-10-27 13:54 | XMS REPORT | Clinical Summary ---
Author Author Admin, Elba Lance [facility] Address Unknown Phone Unavailable Allergies, [...] libido COLON POLYPS 211.3 Resolved Lolis Thomas DATABASE SOFTWARE TECHNICIAN Benign neoplasm of colon PERIPHERAL NEUROPATHY [...] y atherosclerosis of unspecified type of vessel, rampart or graft OTH NONSPC ABN FINDNG RAD&OTH [...] MISC Test twice a day LANCET S 22797118223 Active Baltazar Childers MD Active TRUEDRAW LANCING DEVICE MISC Test twice a day L ANCET DEVICES 03004066053 Active Baltazar Childers MD Active TRUETRACK TEST STRP Test twice a day GLUCOSE BLOO D 10159743943 Active Baltazar Childers MD Active TRUETRACK BLOOD GLUCOSE W/DEVICE KIT Test twice a day BLOOD GLUCOSE MONITORING SUPPL 48492612792 Active Bella Suarez DATABASE SOFTWARE TECHNICIAN Active HYDROCODONE-ACETAMINOPHEN 7.5-325 MG TABS Take 1 tab every 6-8 hour s PRN HYDROCODONE-ACETAMINOPHEN 95127241477 Active Baltazar Childers MD Active NORTRIPTYLINE HCL 50 MG CAPS 1 every night for neuropathy 4 NORTRIPTYLINE HCL 68474588652 Active Baltazar Childers MD Acti ve GABAPENTIN 300 MG CAPS 1 three times a day GABAPE NTIN 69843582646 Active Baltazar Childers MD Active GABAPENTIN 300 MG CAPS 1 po qd x 2 days, then 1 po BID x 2 d ays, then 1 po TID GABAPENTIN 45695113859 No Longer Active Baltazar silverman MD Active TRAMADOL HCL 50 MG TABS 1 twice a day as needed for pain TRAMADOL HCL 53810494433 Active Baltazar Childers MD Active NAPROXEN 500 MG TABS 1 tablet by mouth twice daily NAPROXEN 48459136780 No Longer Active Baltazar Childers MD Active PROAIR HFA 108 (90 BASE) MCG/ACT AERS 2 puffs four times a d ay as needed ALBUTEROL SULFATE 23402014422 Active Baltazar Childers MD Active DEPO-TESTOSTERONE 200 MG/ML OIL as directed RUFINO TOSTERONE CYPIONATE 62490923538 No Longer Active Baltazar Childers MD Active LIPITOR 20 MG TABS Take one by mouth daily in evening ATORVASTATIN CALCIUM 11194628461 No Longer Active Baltazar Childers MD Activ e CRESTOR 10 MG TABS 1 by mouth every day R OSUVASTATIN CALCIUM 66119958905 No Longer Active Baltazar Childers MD Activ e PHENTERMINE HCL 37.5 MG TABS Take one by mouth daily 2 PHENTERMINE HCL 00370008155 No Longer Active Baltazar Childers MD Activ e ROBAXIN-750 750 MG TABS Take one by mouth daily ME THOCARBAMOL 79850638061 Active Baltazar Childers MD Active TIZANIDINE HCL 4 MG TABS 1 daily as needed for muscle spasm 2011 TIZANIDINE HCL 55995173592 No Longer Active Dawna Salazar RN Active LYYNUCH ULTRA BLUE STRP Test twice a day GLUCO SE BLOOD 22450964797 Active Baltazar Childers MD Active [id number] 50-325-40 MG TABS 1 four time s a day as needed for heacache [id number] 12512160297 Active Baltazar Childers MD Active SUMATRIPTAN SUCCINATE 100 MG TABS 1 tablet by mouth at onset of migraine as needed SUMATRIPTAN SUCCINATE 66492299192 Active Baltazar barron MD Active LORATADINE 10 MG TABS Take one by mouth daily LORATADINE 13287547811 Active Baltazar Childers MD Active FUROSEMIDE 40 MG TABS Take one by mouth daily FUROSEMIDE 71197594890 Active Baltazar Childers MD Active LISINOPRIL 20 MG TABS Take one by mouth daily at bedtime LISINOPRIL 19255996656 Active Baltazar Childers MD Active OMEPRAZOLE 20 MG CPDR Take one by mouth daily OMEPRAZOLE 05768828128 Active Baltazar Childers MD Active HYDROXYZINE HCL 25 MG TABS Take one by mouth daily HYDROXYZINE HCL 07431198906 Active Baltazar Childers MD Active GLIPIZIDE 10 MG TABS 1 tablet by mouth twice daily GLIPIZIDE 39613559678 Active Baltaazr Childers MD Active ALPRAZOLAM 1 MG TABS 1 tablet by mouth daily at bedtime for restles s leg ALPRAZOLAM 35270822669 Active Baltazar Childers MD Active METFORMIN HCL 1000 MG TABS Take one by mouth twice daily METFORMIN HCL 35267853274 Active Baltazar Childers MD Active TIZANIDINE HCL 4 MG TABS 1 daily as needed for muscle spasm 2011 TIZANIDINE HCL 4 MG TABS 157750 TIZANIDINE HCL Inactiv e PHENTERMINE HCL 37.5 MG TABS Take one by mouth daily 2 PHENTERMINE HCL 37.5 MG TABS 805132 PHENTERMINE HCL Inactive CRESTOR 10 MG TABS 1 by mouth every day C RESTOR 10 MG TABS ROSUVASTATIN CALCIUM Inactive LIPITOR 20 MG TABS Take one by mouth daily in evening LIPITOR 20 MG TABS 002159 ATORVASTATIN CALCIUM Inactive DEPO-TESTOSTERONE 200 MG/ML OIL as directed 8 DEPO-TESTOSTERONE 200 MG/ML OIL 044752 TESTOSTERONE CYPIONATE Inactive NAPROXEN 500 MG TABS 1 tablet by mouth twice daily 201 07/27/22 NAPROXEN 500 MG TABS 928418 NAPROXEN Inactive GABAPENTIN 300 MG CAPS 1 po qd x 2 days, then 1 po BID x 2 d ays, then 1 po TID GABAPENTIN 300 MG CAPS 685714 GABAPENTIN Inact amie Immunizations Vaccine Administration Date Value Standard Floyd cription pneumococcal immunization administered Pneumovax 23 [CVX33] pneumococcal polysaccharide vaccine, 23 valent Seasonal influenza vaccine, injectable, containing preservative, for > 3 years old (Afluria, FluLaval, Fluzone, Fluvirin, Fluarix, Agriflu(>= 18 yo)) Fluzone (>3 yrs.) [[id number]] Influenza, seasonal, inject able Seasonal influenza vaccine, injectable, containing preservative, for > 3 years old (Afluria, FluLaval, Fluzone, Fluvirin, Fluarix, Agriflu(>= 18 yo)) Fluzone (>3 yrs.) [[id number]] Influenza, seasonal, inject able Vital Signs Date [...] Range Description Lab Report: CBC - Hematology platelet count 273 10^3/MM^3 10*3/mm3 607-190 0271/08/21 red blood cell distribution width 14.4 % 11 .6-14.8 mean corpuscular hemoglobin concentration, RBC 33.0 G/DL % 31.8-35.4 mean corpuscular hemoglobin, RBC 31.7 pg 27. 0-31.2 mean corpuscular volume, RBC 96 fL 80-97 hematocrit, blood 35.1 % 36.0-46.0 hemoglobin, blood 11.6 g/dL 12.0-16.0 erythrocyte (RBC) count 3.65 10^6/MM^3 10*6/mm3 4.04-5.4 8 leukocyte count, blood 4.9 10^3/MM^3 10*3/mm3 4.6-10.2 Lab Report: CBC, Renal Panel - Chemistry carbon dioxide, venous blood 32.0 mmol/L 21.0-32 .0 blood glucose 200 mg/dL 65-110 urea nitrogen, blood 19 mg/dL 7-18 creatinine, serum 1.60 mg/dL 0.60-1.30 calcium, serum 9.5 mg/dL 8.5-10.1 sodium, serum 139 mmol/L 804-440 6366/01/20 potassium, serum 5.3 mmol/L 3.5-5.2 chloride, serum 99 mmol/L 98-107 Lab Report: CBC, Renal Panel - Hematolog y mean corpuscular hemoglobin concentration, RBC 33.3 G/DL % 31.8-35.4 red blood cell distribution width 14.9 % 11 .6-14.8 erythrocyte (RBC) count 3.70 10^6/MM^3 10*6/mm3 4.04-5.4 8 hemoglobin, blood 11.9 g/dL 12.0-16.0 hematocrit, blood 35.6 % 36.0-46.0 mean corpuscular volume, RBC 96 fL 80-97 mean corpuscular hemoglobin, RBC 32.0 pg 27. 0-31.2 platelet count 262 10^3/MM^3 10*3/mm3 529-442 1967/01/20 leukocyte count, blood 4.7 10^3/MM^3 10*3/mm3 4.6-10.2 Lab Report: MICROALBUMIN, Lipid Panel, H GBA1C, Comp. Metabolic Panel - Chemistry alanine aminotransferase (SGPT), serum 54 U/L 12-78 aspartate aminotransferase (SGOT), serum 29 U/L 15-37 alkaline phosphatase, serum 55 U/L 50-136 calcium, serum 9.8 mg/dL 8.5-10.1 bilirubin, serum, total 0.20 mg/dL 0.00-1.00 albumin/creatinine ratio, urine 30 - 300 mg/g mg/g{creat} 0-29 cholesterol, serum 319 mg/dL 245-230 0935/08/21 triglyceride, serum, fasting 546 mg/dL 30-200 HDL cholesterol, serum 39 mg/dL 32-96 LDL cholesterol, serum 167.00 mg/dL 5.00-130.00 hemoglobin A1C, blood, as % of total hemoglobin 7.7 % 4.3-6.0 sodium, serum 138 mmol/L 518-073 0751/08/21 potassium, serum 4.3 mmol/L 3.5-5.2 chloride, serum 100 mmol/L 98-107 carbon dioxide, venous blood 33.2 mmol/L 21.0-32 .0 blood glucose 138 mg/dL 65-110 urea nitrogen, blood 13 mg/dL 7-18 creatinine, serum 1.40 mg/dL 0.60-1.30 Lab Report: MICROALBUMIN, Lipid Panel, H GBA1C, Comp. Metabolic Panel - Lab microalbumin, urine 10 0-19 Encounters Code Encounter Date Provider Facility CPT-27093 Level 4 Est. Patient 14:15:19 CDT Baltazar Childers MD [facility] CPT-07132 Level 4 Est. Patient 12:20:13 CDT Baltazar Childers MD [facility] CPT-94192 Level 4 Est. Patient 14:52:45 UNDERLINER Baltazar Childers MD [facility] CPT-99333 Level 4 Est. Patient 14:18:34 UNDERLINER Baltazar Childers MD [facility] CPT-55525 Level 4 Est. Patient 15:18:29 CDT Baltazar Childers MD [facility] CPT-24015 Level 3 Est. Patient 12:45:34 CDT Baltazar Childers MD [facility] CPT-13373 Level 3 Est. Patient 10:10:11 CDT Baltazar Childers MD [facility] CPT-33919 Level 3 Est. Patient 14:07:50 CDT Baltazar Childers MD [facility] CPT-69645 Level 4 Est. Patient 12:26:10 UNDERLINER Baltazar Childers MD [facility] CPT-15945 Level 4 Est. Patient 14:45:38 CDT Baltazar Childers MD [facility] CPT-51940 Level 4 New Patient 12:30:48 CDT Baltazar hinton MD [facility] Procedures Code Procedure Name Date Entry Date Standard Desc ription CPT-84851 Venipuncture Draw Fee 12:10:27 UNDERLINER CPT-27670 Fluzone Quadrivalent Intramuscular Suspe nsion 0.5 ML 10:49:13 CDT CPT-83165 First Vx Component - Ix admi n via ID IM or jet inj without physician counseling 15:17:19 UNDERLINER CPT-55807 Pneumovax 23 15:17:19 UNDERLINER CPT-55527 Pneumovax 14:52:45 UNDERLINER CPT-34590 Venipuncture Draw Fee 14:06:30 UNDERLINER CPT-000 Give Appropriate Flu Vaccine 14:18:34 UNDERLINER 2 CPT-19532 Administration single or combination vac cine inc oral 14:46:00 UNDERLINER CPT-74475 Influenza split virus > age 3 14:46:00 UNDERLINER CPT-OV Office Visit 19:13:16 CDT CPT-19328 Zostavax 18:41:56 CDT CPT-15564 Administration single or combination vac cine inc oral 12:56:39 CDT CPT-51101 Zoster Vaccine (Zostavax) 12:56:39 CDT 2012 CPT-48353 Venipuncture Draw Fee 10:58:57 CDT CPT-11324 Sono pelvis non OB uterus ovaries cervix 17:45:04 CDT CPT-31755 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
--- OUTSIDE RECORDS SUMMARY | 2019-10-27 13:54 | XMS REPORT | Clinical Summary ---
Author Author Admin, Elba Lance [facility] Address Unknown Phone Allergies, Adverse Reactions, Alerts [...] tab every 6-8 hour s PRN HYDROCODONE-ACETAMINOPHEN 17890556058 Active Baltazar Childers MD Active NORTRIPTYLINE HCL 50 MG CAPS 1 every night for neuropathy 4 NORTRIPTYLINE HCL 69173249046 Active Baltazar Childers MD Acti ve GABAPENTIN 300 MG CAPS 1 three times a day GABAPE NTIN 25626006498 Active Baltazar Childers MD Active GABAPENTIN 300 MG CAPS 1 po qd x 2 days, then 1 po BID x 2 d ays, then 1 po TID GABAPENTIN 63884820033 No Longer Active Baltazar silverman MD Active TRAMADOL HCL 50 MG TABS 1 twice a day as needed for pain TRAMADOL HCL 53162010123 Active Baltazar Childers MD Active NAPROXEN 500 MG TABS 1 tablet by mouth twice daily NAPROXEN 12281442484 No Longer Active Baltazar Childers MD Active PROAIR HFA 108 (90 BASE) MCG/ACT AERS 2 puffs four times a d ay as needed ALBUTEROL SULFATE 75920209553 Active Baltazar Childers MD Active DEPO-TESTOSTERONE 200 MG/ML OIL as directed RUFINO TOSTERONE CYPIONATE 26054209777 No Longer Active Baltazar Childers MD Active LIPITOR 20 MG TABS Take one by mouth daily in evening ATORVASTATIN CALCIUM 83388748995 No Longer Active Baltazar Childers MD Activ e CRESTOR 10 MG TABS 1 by mouth every day R OSUVASTATIN CALCIUM 80303787075 No Longer Active Baltazar Childers MD Activ e PHENTERMINE HCL 37.5 MG TABS Take one by mouth daily 2 PHENTERMINE HCL 56401291941 No Longer Active Baltazar Childers MD Activ e ROBAXIN-750 750 MG TABS Take one by mouth daily ME THOCARBAMOL 10051962575 Active Baltazar Childers MD Active TIZANIDINE HCL 4 MG TABS 1 daily as needed for muscle spasm 2011 TIZANIDINE HCL 68018184097 No Longer Active Dawna Salazar RN Active ONETOUCH ULTRA BLUE STRP Test twice a day GLUCO SE BLOOD 17125483890 Active Baltazar Childers MD Active [id number] 50-325-40 MG TABS 1 four time s a day as needed for heacache [id number] 71588158666 Active Baltazar Childers MD Active SUMATRIPTAN SUCCINATE 100 MG TABS 1 tablet by mouth at onset of migraine as needed SUMATRIPTAN SUCCINATE 87014353078 Active Shireen Miller APRN Active LORATADINE 10 MG TABS Take one by mouth daily LORATADINE 89628956155 Active Brad Hughes Active FUROSEMIDE 40 MG TABS Take one by mouth daily FUROSEMIDE 22072174520 Active Shireen Miller APRN Active LISINOPRIL 20 MG TABS Take one by mouth daily at bedtime LISINOPRIL 98371701314 Active Shireen Miller APRN Active OMEPRAZOLE 20 MG CPDR Take one by mouth daily OMEPRAZOLE 90537513952 Active Shireen Miller APRN Active HYDROXYZINE HCL 25 MG TABS Take one by mouth daily HYDROXYZINE HCL 51761846147 Active Shireen Miller APRN Active GLIPIZIDE 10 MG TABS 1 tablet by mouth twice daily GLIPIZIDE 02685935944 Active Shireen Miller APRN Active ALPRAZOLAM 1 MG TABS 1 tablet by mouth daily at bedtime for restles s leg ALPRAZOLAM 79836563002 Active Baltazar Childers MD Active METFORMIN HCL 1000 MG TABS Take one by mouth twice daily METFORMIN HCL 53538081702 Active Shireen Miller APRN Active TIZANIDINE HCL 4 MG TABS 1 daily as needed for muscle spasm 2011 TIZANIDINE HCL 4 MG TABS 644940 TIZANIDINE HCL Inactiv e PHENTERMINE HCL 37.5 MG TABS Take one by mouth daily 2 PHENTERMINE HCL 37.5 MG TABS 614688 PHENTERMINE HCL Inactive CRESTOR 10 MG TABS 1 by mouth every day C RESTOR 10 MG TABS ROSUVASTATIN CALCIUM Inactive LIPITOR 20 MG TABS Take one by mouth daily in evening LIPITOR 20 MG TABS 500034 ATORVASTATIN CALCIUM Inactive DEPO-TESTOSTERONE 200 MG/ML OIL as directed 8 DEPO-TESTOSTERONE 200 MG/ML OIL 490642 TESTOSTERONE CYPIONATE Inactive NAPROXEN 500 MG TABS 1 tablet by mouth twice daily 201 07/27/22 NAPROXEN 500 MG TABS 204798 NAPROXEN Inactive GABAPENTIN 300 MG CAPS 1 po qd x 2 days, then 1 po BID x 2 d ays, then 1 po TID GABAPENTIN 300 MG CAPS 894760 GABAPENTIN Inact amie Immunizations Vaccine Administration Date Value Standard Floyd cription pneumococcal immunization administered Pneumovax 23 [CVX33] pneumococcal polysaccharide vaccine, 23 valent Seasonal influenza vaccine, injectable, containing preservative, for > 3 years old (Afluria, FluLaval, Fluzone, Fluvirin, Fluarix, Agriflu(>= 18 yo)) Fluzone (>3 yrs.) [[id number]] Influenza, seasonal, inject able Seasonal influenza vaccine, injectable, containing preservative, for > 3 years old (Afluria, FluLaval, Fluzone, Fluvirin, Fluarix, Agriflu(>= 18 yo)) Fluzone (>3 yrs.) [SZA540] Influenza, seasonal, inject able Vital Signs Date [...] C - Chemistry sodium, serum 140 mmol/L 363-781 0291/02/26 potassium, serum 5.3 mmol/L 3.5-5.2 chloride, serum 101 mmol/L 98-107 carbon dioxide, venous blood 36.9 mmol/L 21.0-32 .0 blood glucose 151 mg/dL 65-110 calcium, serum 8.7 mg/dL 8.5-10.1 urea nitrogen, blood 19 mg/dL 7-18 creatinine, serum 1.60 mg/dL 0.60-1.30 hemoglobin A1C, blood, as % of total hemoglobin 7.9 % 4.3-6.0 Lab Report: CBC, Basic Metabolic Panel, HGBA1C - Chemistry sodium, serum 138 mmol/L 695-886 2913/05/23 potassium, serum 4.9 mmol/L 3.5-5.2 chloride, serum [...] 11 .6-14.8 platelet count 317 UL 10*3/mm3 445-921 7572/05/23 mean corpuscular volume, RBC 98 fL 80-97 [...] 0.39 mg/dL 0.00-1.00 cholesterol, serum 345 mg/dL 631-381 2393/08/26 triglyceride, serum, fasting 635 mg/dL 30-200 HDL [...] Panel - Chemistry sodium, serum 136 mmol/L 316-233 3679/01/06 potassium, serum 5.1 mmol/L 3.5-5.2 chloride, serum [...] Panel - Chemistry sodium, serum 139 mmol/L 659-857 8625/08/26 potassium, serum 5.8 mmol/L 3.5-5.2 chloride, serum 98 mmol/L 98-107 carbon dioxide, venous blood 33.0 mmol/L 21.0-32 .0 blood glucose 107 mg/dL 65-110 urea nitrogen, blood 26 mg/dL 7-18 creatinine, serum 1.80 mg/dL 0.60-1.30 calcium, serum 9.3 mg/dL 8.5-10.1 sodium, serum 138 mmol/L 919-491 2923/06/17 potassium, serum 4.9 mmol/L 3.5-5.2 chloride, serum [...] mg/dL Encounters Code Encounter Date Provider Facility CPT-08624 Level 4 Est. Patient 14:52:45 PASS WORKER Baltazar Childers MD [facility] CPT-62912 Level 4 Est. Patient 14:18:34 PASS WORKER Baltazar Childers MD [facility] CPT-49328 Level 4 Est. Patient 15:18:29 CDT Baltazar Childers MD [facility] CPT-20416 Level 3 Est. Patient 12:45:34 CDT Baltazar Childers MD [facility] CPT-23028 Level 3 Est. Patient 10:10:11 CDT Baltazar Childers MD [facility] CPT-91474 Level 3 Est. Patient 14:07:50 CDT Baltazar Childers MD [facility] CPT-15134 Level 4 Est. Patient 12:26:10 PASS WORKER Baltazar Childers MD [facility] CPT-09939 Level 4 Est. Patient 14:45:38 CDT Baltazar Childers MD [facility] CPT-13515 Level 4 New Patient 12:30:48 CDT Baltazar hinton MD [facility] Procedures Code Procedure Name Date Entry Date Standard Desc ription CPT-11140 First Vx Component - Ix admi n via ID IM or jet inj without physician counseling 15:17:19 PASS WORKER CPT-26526 Pneumovax 15:17:19 PASS WORKER CPT-62038 Pneumovax 14:52:45 PASS WORKER CPT-34836 Venipuncture Draw Fee 14:06:30 PASS WORKER CPT-000 Give Appropriate Flu Vaccine 14:18:34 PASS WORKER 2 CPT-76493 Administration single or combination vac cine inc oral 14:46:00 PASS WORKER CPT-99505 Influenza split virus > age 3 14:46:00 PASS WORKER CPT-OV Office Visit 19:13:16 CDT CPT-41819 Zostavax 18:41:56 CDT CPT-11199 Administration single or combination vac cine inc oral 12:56:39 CDT CPT-70504 Zoster Vaccine (Zostavax) 12:56:39 CDT 2012 CPT-85231 Venipuncture Draw Fee 10:58:57 CDT CPT-71419 Sono pelvis non OB uterus ovaries cervix 17:45:04 CDT CPT-30210 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
--- OUTSIDE RECORDS SUMMARY | 2019-10-27 13:55 | XMS REPORT | Clinical Summary ---
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 Benign neoplasm of colon PERIPHERAL NEUROPATHY 356.9 [...] y atherosclerosis of unspecified type of vessel, [place] [...] tab every 6-8 hour s PRN HYDROCODONE-ACETAMINOPHEN 20998365686 Active Baltazar Childers MD Active NORTRIPTYLINE HCL 50 MG CAPS 1 every night for neuropathy 4 NORTRIPTYLINE HCL 93818225553 Active Baltazar Childers MD Acti ve GABAPENTIN 300 MG CAPS 1 three times a day GABAPE NTIN 58181060205 Active Baltazar Childers MD Active GABAPENTIN 300 MG CAPS 1 po qd x 2 days, then 1 po BID x 2 d ays, then 1 po TID GABAPENTIN 30931078183 No Longer Active Baltazar silverman MD Active TRAMADOL HCL 50 MG TABS 1 twice a day as needed for pain TRAMADOL HCL 68463790072 Active Baltazar Childers MD Active NAPROXEN 500 MG TABS 1 tablet by mouth twice daily NAPROXEN 69731999023 No Longer Active Baltazar Childers MD Active PROAIR HFA 108 (90 BASE) MCG/ACT AERS 2 puffs four times a d ay as needed ALBUTEROL SULFATE 60469086125 Active Baltazar Childers MD Active DEPO-TESTOSTERONE 200 MG/ML OIL as directed RUFINO TOSTERONE CYPIONATE 02903855110 No Longer Active Baltazar Childers MD Active LIPITOR 20 MG TABS Take one by mouth daily in evening ATORVASTATIN CALCIUM 09114405828 No Longer Active Baltazar Childers MD Activ e CRESTOR 10 MG TABS 1 by mouth every day R OSUVASTATIN CALCIUM 98072473429 No Longer Active Baltazar Childers MD Activ e PHENTERMINE HCL 37.5 MG TABS Take one by mouth daily 2 PHENTERMINE HCL 12373522197 No Longer Active Baltazar Childers MD Activ e ROBAXIN-750 750 MG TABS Take one by mouth daily ME THOCARBAMOL 61922807412 Active Baltazar Childers MD Active TIZANIDINE HCL 4 MG TABS 1 daily as needed for muscle spasm 2011 TIZANIDINE HCL 56975804137 No Longer Active Dawna Salazar RN Active ONETOUCH ULTRA BLUE STRP Test twice a day GLUCO SE BLOOD 25904343923 Active Baltazar Childers MD Active [id number] 50-325-40 MG TABS 1 four time s a day as needed for heacache [id number] 11826105233 Active Baltazar Childers MD Active SUMATRIPTAN SUCCINATE 100 MG TABS 1 tablet by mouth at onset of migraine as needed SUMATRIPTAN SUCCINATE 56623669740 Active Baltazar bynum MD Active LORATADINE 10 MG TABS Take one by mouth daily LORATADINE 70582745795 Active Baltazar Childers MD Active FUROSEMIDE 40 MG TABS Take one by mouth daily FUROSEMIDE 69990401418 Active Baltazar Childers MD Active LISINOPRIL 20 MG TABS Take one by mouth daily at bedtime LISINOPRIL 06040775354 Active Baltazar Childers MD Active OMEPRAZOLE 20 MG CPDR Take one by mouth daily OMEPRAZOLE 20334710418 Active Baltazar Childers MD Active HYDROXYZINE HCL 25 MG TABS Take one by mouth daily HYDROXYZINE HCL 54425368967 Active Baltazar Childers MD Active GLIPIZIDE 10 MG TABS 1 tablet by mouth twice daily GLIPIZIDE 46294899263 Active Baltazar Childers MD Active ALPRAZOLAM 1 MG TABS 1 tablet by mouth daily at bedtime for restles s leg ALPRAZOLAM 84960142153 Active Baltazar Childers MD Active METFORMIN HCL 1000 MG TABS Take one by mouth twice daily METFORMIN HCL 17775915872 Active Baltazar Childers MD Active TIZANIDINE HCL 4 MG TABS 1 daily as needed for muscle spasm 2011 TIZANIDINE HCL 4 MG TABS 099571 TIZANIDINE HCL Inactiv e PHENTERMINE HCL 37.5 MG TABS Take one by mouth daily 2 PHENTERMINE HCL 37.5 MG TABS 118743 PHENTERMINE HCL Inactive CRESTOR 10 MG TABS 1 by mouth every day C RESTOR 10 MG TABS ROSUVASTATIN CALCIUM Inactive LIPITOR 20 MG TABS Take one by mouth daily in evening LIPITOR 20 MG TABS 372557 ATORVASTATIN CALCIUM Inactive DEPO-TESTOSTERONE 200 MG/ML OIL as directed 8 DEPO-TESTOSTERONE 200 MG/ML OIL 369426 TESTOSTERONE CYPIONATE Inactive NAPROXEN 500 MG TABS 1 tablet by mouth twice daily 201 07/27/22 NAPROXEN 500 MG TABS 432329 NAPROXEN Inactive GABAPENTIN 300 MG CAPS 1 po qd x 2 days, then 1 po BID x 2 d ays, then 1 po TID GABAPENTIN 300 MG CAPS 831540 GABAPENTIN Inact amie Immunizations Vaccine Administration Date Value Standard Floyd cription pneumococcal immunization administered Pneumovax 23 [CVX33] pneumococcal polysaccharide vaccine, 23 valent Seasonal influenza vaccine, injectable, containing preservative, for > 3 years old (Afluria, FluLaval, Fluzone, Fluvirin, Fluarix, Agriflu(>= 18 yo)) Fluzone (>3 yrs.) [FUQ140] Influenza, seasonal, inject able Seasonal influenza vaccine, injectable, containing preservative, for > 3 years old (Afluria, FluLaval, Fluzone, Fluvirin, Fluarix, Agriflu(>= 18 yo)) Fluzone (>3 yrs.) [DOH355] Influenza, seasonal, inject able Vital Signs Date [...] C - Chemistry sodium, serum 140 mmol/L 522-053 6399/02/26 potassium, serum 5.3 mmol/L 3.5-5.2 chloride, serum [...] 0.39 mg/dL 0.00-1.00 cholesterol, serum 345 mg/dL 113-905 9499/08/26 triglyceride, serum, fasting 635 mg/dL 30-200 HDL [...] Panel - Chemistry sodium, serum 136 mmol/L 190-438 4896/01/06 potassium, serum 5.1 mmol/L 3.5-5.2 chloride, serum [...] Panel - Chemistry sodium, serum 139 mmol/L 302-523 7278/08/26 potassium, serum 5.8 mmol/L 3.5-5.2 chloride, serum [...] mg/dL Encounters Code Encounter Date Provider Facility CPT-21812 Level 4 Est. Patient 12:20:13 CDT Baltazar Childers MD [facility] CPT-56094 Level 4 Est. Patient 14:52:45 SALES REPRESENTATIVE Baltazar Childers MD [facility] CPT-12881 Level 4 Est. Patient 14:18:34 SALES REPRESENTATIVE Baltazar Childers MD [facility] CPT-50333 Level 4 Est. Patient 15:18:29 CDT Baltazar Childers MD [facility] CPT-23911 Level 3 Est. Patient 12:45:34 CDT Baltazar Childers MD [facility] CPT-03574 Level 3 Est. Patient 10:10:11 CDT Baltazar Childers MD [facility] CPT-77727 Level 3 Est. Patient 14:07:50 CDT Baltazar Childers MD [facility] CPT-54473 Level 4 Est. Patient 12:26:10 SALES REPRESENTATIVE Baltazar Childers MD [facility] CPT-90479 Level 4 Est. Patient 14:45:38 CDT Baltazar Childers MD [facility] CPT-07823 Level 4 New Patient 12:30:48 CDT Baltazar hinton MD [facility] Procedures Code Procedure Name Date Entry Date Standard Desc ription CPT-21473 First Vx Component - Ix admi n via ID IM or jet inj without physician counseling 15:17:19 SALES REPRESENTATIVE CPT-00139 Pneumovax 15:17:19 SALES REPRESENTATIVE CPT-27472 Pneumovax 14:52:45 SALES REPRESENTATIVE CPT-62611 Venipuncture Draw Fee 14:06:30 SALES REPRESENTATIVE CPT-000 Give Appropriate Flu Vaccine 14:18:34 SALES REPRESENTATIVE 2 CPT-22099 Administration single or combination vac cine inc oral 14:46:00 SALES REPRESENTATIVE CPT-24121 Influenza split virus > age 3 14:46:00 SALES REPRESENTATIVE CPT-OV Office Visit 19:13:16 CDT CPT-44493 Zostavax 18:41:56 CDT CPT-50017 Administration single or combination vac cine inc oral 12:56:39 CDT CPT-32272 Zoster Vaccine (Zostavax) 12:56:39 CDT 2012 CPT-14547 Venipuncture Draw Fee 10:58:57 CDT CPT-38765 Sono pelvis non OB uterus ovaries cervix 17:45:04 CDT CPT-11419 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
--- OUTSIDE RECORDS SUMMARY | 2019-10-27 13:55 | XMS REPORT | Clinical Summary ---
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 Benign neoplasm of colon PERIPHERAL NEUROPATHY 356.9 [...] MISC Test twice a day LANCET S 69573461917 Active Baltazar Childers MD Active TRUEDRAW LANCING DEVICE MISC Test twice a day L ANCET DEVICES 77102752152 Active Baltazar Childers MD Active TRUETRACK TEST STRP Test twice a day GLUCOSE BLOO D 30593039499 Active Baltazar Childers MD Active TRUETRACK BLOOD GLUCOSE W/DEVICE KIT Test twice a day BLOOD GLUCOSE MONITORING SUPPL 74283770550 Active Baltazar Childers MD Activ e HYDROCODONE-ACETAMINOPHEN 7.5-325 MG TABS Take 1 tab every 6-8 hour s PRN HYDROCODONE-ACETAMINOPHEN 57441253824 Active Baltazar Childers MD Active NORTRIPTYLINE HCL 50 MG CAPS 1 every night for neuropathy 4 NORTRIPTYLINE HCL 18485562183 Active Baltazar Childers MD Acti ve GABAPENTIN 300 MG CAPS 1 three times a day GABAPE NTIN 41501150137 Active Baltazar Childers MD Active GABAPENTIN 300 MG CAPS 1 po qd x 2 days, then 1 po BID x 2 d ays, then 1 po TID GABAPENTIN 59896026596 No Longer Active Baltazar silverman MD Active TRAMADOL HCL 50 MG TABS 1 twice a day as needed for pain TRAMADOL HCL 64330116466 Active Baltazar Childers MD Active NAPROXEN 500 MG TABS 1 tablet by mouth twice daily NAPROXEN 23627601791 No Longer Active Baltazar Childers MD Active PROAIR HFA 108 (90 BASE) MCG/ACT AERS 2 puffs four times a d ay as needed ALBUTEROL SULFATE 11668586073 Active Baltazar Childers MD Active DEPO-TESTOSTERONE 200 MG/ML OIL as directed RUFINO TOSTERONE CYPIONATE 73033877412 No Longer Active Baltazar Childers MD Active LIPITOR 20 MG TABS Take one by mouth daily in evening ATORVASTATIN CALCIUM 11044295488 No Longer Active Baltazar Childers MD Activ e CRESTOR 10 MG TABS 1 by mouth every day R OSUVASTATIN CALCIUM 78332617516 No Longer Active Baltazar Childers MD Activ e PHENTERMINE HCL 37.5 MG TABS Take one by mouth daily 2 PHENTERMINE HCL 54955382043 No Longer Active Baltazar Childers MD Activ e ROBAXIN-750 750 MG TABS Take one by mouth daily ME THOCARBAMOL 12331227575 Active Baltazar Childers MD Active TIZANIDINE HCL 4 MG TABS 1 daily as needed for muscle spasm 2011 TIZANIDINE HCL 03019892884 No Longer Active Dawna Salazar RN Active Psioxus TherapeuticsUCH ULTRA BLUE STRP Test twice a day GLUCO SE BLOOD 37828124453 Active Baltazar Childers MD Active [id number] 50-325-40 MG TABS 1 four time s a day as needed for heacache [id number] 25053369247 Active Baltazar Childers MD Active SUMATRIPTAN SUCCINATE 100 MG TABS 1 tablet by mouth at onset of migraine as needed SUMATRIPTAN SUCCINATE 12362184562 Active Baltazar bynum MD Active LORATADINE 10 MG TABS Take one by mouth daily LORATADINE 33627030387 Active Baltazar Childers MD Active FUROSEMIDE 40 MG TABS Take one by mouth daily FUROSEMIDE 61713221725 Active Baltazar Childers MD Active LISINOPRIL 20 MG TABS Take one by mouth daily at bedtime LISINOPRIL 23429536155 Active Baltazar Childers MD Active OMEPRAZOLE 20 MG CPDR Take one by mouth daily OMEPRAZOLE 15561315770 Active Baltazar Childers MD Active HYDROXYZINE HCL 25 MG TABS Take one by mouth daily HYDROXYZINE HCL 47065261465 Active Baltazar Childers MD Active GLIPIZIDE 10 MG TABS 1 tablet by mouth twice daily GLIPIZIDE 67997701161 Active Baltazar Childers MD Active ALPRAZOLAM 1 MG TABS 1 tablet by mouth daily at bedtime for restles s leg ALPRAZOLAM 28946201679 Active Baltazar Childers MD Active METFORMIN HCL 1000 MG TABS Take one by mouth twice daily METFORMIN HCL 98471385277 Active Baltazar Childers MD Active TIZANIDINE HCL 4 MG TABS 1 daily as needed for muscle spasm 2011 TIZANIDINE HCL 4 MG TABS 973057 TIZANIDINE HCL Inactiv e PHENTERMINE HCL 37.5 MG TABS Take one by mouth daily 2 PHENTERMINE HCL 37.5 MG TABS 859996 PHENTERMINE HCL Inactive CRESTOR 10 MG TABS 1 by mouth every day C RESTOR 10 MG TABS ROSUVASTATIN CALCIUM Inactive LIPITOR 20 MG TABS Take one by mouth daily in evening LIPITOR 20 MG TABS 883215 ATORVASTATIN CALCIUM Inactive DEPO-TESTOSTERONE 200 MG/ML OIL as directed 8 DEPO-TESTOSTERONE 200 MG/ML OIL 107375 TESTOSTERONE CYPIONATE Inactive NAPROXEN 500 MG TABS 1 tablet by mouth twice daily 201 07/27/22 NAPROXEN 500 MG TABS 471734 NAPROXEN Inactive GABAPENTIN 300 MG CAPS 1 po qd x 2 days, then 1 po BID x 2 d ays, then 1 po TID GABAPENTIN 300 MG CAPS 750817 GABAPENTIN Inact amie Immunizations Vaccine Administration Date Value Standard Floyd cription pneumococcal immunization administered Pneumovax 23 [CVX33] pneumococcal polysaccharide vaccine, 23 valent Seasonal influenza vaccine, injectable, containing preservative, for > 3 years old (Afluria, FluLaval, Fluzone, Fluvirin, Fluarix, Agriflu(>= 18 yo)) Fluzone (>3 yrs.) [AWH896] Influenza, seasonal, inject able Seasonal influenza vaccine, injectable, containing preservative, for > 3 years old (Afluria, FluLaval, Fluzone, Fluvirin, Fluarix, Agriflu(>= 18 yo)) Fluzone (>3 yrs.) [FPG134] Influenza, seasonal, inject able Vital Signs Date [...] C - Chemistry sodium, serum 140 mmol/L 334-169 7152/02/26 potassium, serum 5.3 mmol/L 3.5-5.2 chloride, serum [...] Panel - Chemistry sodium, serum 136 mmol/L 047-449 9870/01/06 potassium, serum 5.1 mmol/L 3.5-5.2 chloride, serum [...] mg/g mg/g{creat} 0-29 cholesterol, serum 319 mg/dL 759-688 8451/08/21 triglyceride, serum, fasting 546 mg/dL 30-200 HDL cholesterol, serum 39 mg/dL 32-96 LDL cholesterol, serum 167.00 mg/dL 5.00-130.00 hemoglobin A1C, blood, as % of total hemoglobin 7.7 % 4.3-6.0 sodium, serum 138 mmol/L 599-219 7854/08/21 potassium, serum 4.3 mmol/L 3.5-5.2 chloride, serum [...] mg/dL Encounters Code Encounter Date Provider Facility CPT-03675 Level 4 Est. Patient 14:15:19 CDT Baltazar Childers MD [facility] CPT-93351 Level 4 Est. Patient 12:20:13 CDT Baltazar Childers MD [facility] CPT-68090 Level 4 Est. Patient 14:52:45 PART TIME FLEXIBLE CLERK Baltazar Childers MD [facility] CPT-09434 Level 4 Est. Patient 14:18:34 PART TIME FLEXIBLE CLERK Baltazar Childers MD [facility] CPT-15238 Level 4 Est. Patient 15:18:29 CDT Baltazar Childers MD [facility] CPT-54617 Level 3 Est. Patient 12:45:34 CDT Baltazar Childers MD [facility] CPT-10940 Level 3 Est. Patient 10:10:11 CDT Baltazar Childers MD [facility] CPT-57806 Level 3 Est. Patient 14:07:50 CDT Baltazar Childers MD [facility] CPT-20388 Level 4 Est. Patient 12:26:10 PART TIME FLEXIBLE CLERK Baltazar Childers MD [facility] CPT-14479 Level 4 Est. Patient 14:45:38 CDT Baltazar Childers MD [facility] CPT-90344 Level 4 New Patient 12:30:48 CDT Baltazar hinton MD [facility] Procedures Code Procedure Name Date Entry Date Standard Desc ription CPT-40651 Fluzone Quadrivalent Intramuscular Suspe nsion 0.5 ML 10:49:13 CDT CPT-84159 First Vx Component - Ix admi n via ID IM or jet inj without physician counseling 15:17:19 PART TIME FLEXIBLE CLERK CPT-55243 Pneumovax 23 15:17:19 PART TIME FLEXIBLE CLERK CPT-50259 Pneumovax 14:52:45 PART TIME FLEXIBLE CLERK CPT-54362 Venipuncture Draw Fee 14:06:30 PART TIME FLEXIBLE CLERK CPT-000 Give Appropriate Flu Vaccine 14:18:34 PART TIME FLEXIBLE CLERK 2 CPT-39286 Administration single or combination vac cine inc oral 14:46:00 PART TIME FLEXIBLE CLERK CPT-68550 Influenza split virus > age 3 14:46:00 PART TIME FLEXIBLE CLERK CPT-OV Office Visit 19:13:16 CDT CPT-52589 Zostavax 18:41:56 CDT CPT-30591 Administration single or combination vac cine inc oral 12:56:39 CDT CPT-00367 Zoster Vaccine (Zostavax) 12:56:39 CDT 2012 CPT-18929 Venipuncture Draw Fee 10:58:57 CDT CPT-34777 Sono pelvis non OB uterus ovaries cervix 17:45:04 CDT CPT-93580 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
--- OUTSIDE RECORDS SUMMARY | 2019-10-27 13:55 | XMS REPORT | Clinical Summary ---
Author Author Admin, Elba Lance [facility] Address 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 Thomas HOME AIDE Benign neoplasm of colon PERIPHERAL NEUROPATHY 356.9 [...] y atherosclerosis of unspecified type of vessel, [place] or graft OTH NONSPC ABN FINDNG RAD&OTH [...] tab every 6-8 hour s PRN HYDROCODONE-ACETAMINOPHEN 85859453808 Active Baltazar Childers MD Active NORTRIPTYLINE HCL 50 MG CAPS 1 every night for neuropathy 4 NORTRIPTYLINE HCL 59926158244 Active Baltazar Childers MD Acti ve GABAPENTIN 300 MG CAPS 1 three times a day GABAPE NTIN 34625062965 Active Baltazar Childers MD Active GABAPENTIN 300 MG CAPS 1 po qd x 2 days, then 1 po BID x 2 d ays, then 1 po TID GABAPENTIN 16641367048 No Longer Active Baltazar silverman MD Active TRAMADOL HCL 50 MG TABS 1 twice a day as needed for pain TRAMADOL HCL 28961503893 Active Baltazar Childers MD Active NAPROXEN 500 MG TABS 1 tablet by mouth twice daily NAPROXEN 40167086889 No Longer Active Baltazar Childers MD Active PROAIR HFA 108 (90 BASE) MCG/ACT AERS 2 puffs four times a d ay as needed ALBUTEROL SULFATE 84169639687 Active Baltazar Childers MD Active DEPO-TESTOSTERONE 200 MG/ML OIL as directed RUFINO TOSTERONE CYPIONATE 41847533236 No Longer Active Baltazar Childers MD Active LIPITOR 20 MG TABS Take one by mouth daily in evening ATORVASTATIN CALCIUM 46158525947 No Longer Active Baltazar Childers MD Activ e CRESTOR 10 MG TABS 1 by mouth every day R OSUVASTATIN CALCIUM 16238511856 No Longer Active Baltazar Childers MD Activ e PHENTERMINE HCL 37.5 MG TABS Take one by mouth daily 2 PHENTERMINE HCL 87419077540 No Longer Active Baltazar Childers MD Activ e ROBAXIN-750 750 MG TABS Take one by mouth daily ME THOCARBAMOL 60544952651 Active Baltazar Childers MD Active TIZANIDINE HCL 4 MG TABS 1 daily as needed for muscle spasm 2011 TIZANIDINE HCL 24308309881 No Longer Active Dawna Salazar RN Active ONETOUCH ULTRA BLUE STRP Test twice a day GLUCO SE BLOOD 91401223963 Active Baltazar Childers MD Active [id number] 50-325-40 MG TABS 1 four time s a day as needed for heacache [id number] 63407049099 Active Baltazar Childers MD Active SUMATRIPTAN SUCCINATE 100 MG TABS 1 tablet by mouth at onset of migraine as needed SUMATRIPTAN SUCCINATE 34755705833 Active Baltazar bynum MD Active LORATADINE 10 MG TABS Take one by mouth daily LORATADINE 66819522110 Active Baltazar Childers MD Active FUROSEMIDE 40 MG TABS Take one by mouth daily FUROSEMIDE 31964226641 Active Baltazar Childers MD Active LISINOPRIL 20 MG TABS Take one by mouth daily at bedtime LISINOPRIL 24791649601 Active Baltazar Childers MD Active OMEPRAZOLE 20 MG CPDR Take one by mouth daily OMEPRAZOLE 62545024331 Active Baltazar Childers MD Active HYDROXYZINE HCL 25 MG TABS Take one by mouth daily HYDROXYZINE HCL 17245005165 Active Baltazar Childers MD Active GLIPIZIDE 10 MG TABS 1 tablet by mouth twice daily GLIPIZIDE 73862948347 Active Baltazar Childers MD Active ALPRAZOLAM 1 MG TABS 1 tablet by mouth daily at bedtime for restles s leg ALPRAZOLAM 28396592100 Active Baltazar Childers MD Active METFORMIN HCL 1000 MG TABS Take one by mouth twice daily METFORMIN HCL 27144205388 Active Baltazar Childers MD Active TIZANIDINE HCL 4 MG TABS 1 daily as needed for muscle spasm 2011 TIZANIDINE HCL 4 MG TABS 641632 TIZANIDINE HCL Inactiv e PHENTERMINE HCL 37.5 MG TABS Take one by mouth daily 2 PHENTERMINE HCL 37.5 MG TABS 119884 PHENTERMINE HCL Inactive CRESTOR 10 MG TABS 1 by mouth every day C RESTOR 10 MG TABS ROSUVASTATIN CALCIUM Inactive LIPITOR 20 MG TABS Take one by mouth daily in evening LIPITOR 20 MG TABS 773999 ATORVASTATIN CALCIUM Inactive DEPO-TESTOSTERONE 200 MG/ML OIL as directed 8 DEPO-TESTOSTERONE 200 MG/ML OIL 688628 TESTOSTERONE CYPIONATE Inactive NAPROXEN 500 MG TABS 1 tablet by mouth twice daily 201 07/27/22 NAPROXEN 500 MG TABS 708511 NAPROXEN Inactive GABAPENTIN 300 MG CAPS 1 po qd x 2 days, then 1 po BID x 2 d ays, then 1 po TID GABAPENTIN 300 MG CAPS 132436 GABAPENTIN Inact amie Immunizations Vaccine Administration Date Value Standard Floyd cription pneumococcal immunization administered Pneumovax 23 [CVX33] pneumococcal polysaccharide vaccine, 23 valent Seasonal influenza vaccine, injectable, containing preservative, for > 3 years old (Afluria, FluLaval, Fluzone, Fluvirin, Fluarix, Agriflu(>= 18 yo)) Fluzone (>3 yrs.) [DNA451] Influenza, seasonal, inject able Seasonal influenza vaccine, injectable, containing preservative, for > 3 years old (Afluria, FluLaval, Fluzone, Fluvirin, Fluarix, Agriflu(>= 18 yo)) Fluzone (>3 yrs.) [MEC657] Influenza, seasonal, inject able Vital Signs Date [...] C - Chemistry sodium, serum 140 mmol/L 716-059 4173/02/26 potassium, serum 5.3 mmol/L 3.5-5.2 chloride, serum [...] 0.39 mg/dL 0.00-1.00 cholesterol, serum 345 mg/dL 933-016 9108/08/26 triglyceride, serum, fasting 635 mg/dL 30-200 HDL [...] Panel - Chemistry sodium, serum 136 mmol/L 763-196 2987/01/06 potassium, serum 5.1 mmol/L 3.5-5.2 chloride, serum [...] Panel - Chemistry sodium, serum 139 mmol/L 992-314 5481/08/26 potassium, serum 5.8 mmol/L 3.5-5.2 chloride, serum [...] mg/dL Encounters Code Encounter Date Provider Facility CPT-59293 Level 4 Est. Patient 12:20:13 CDT Baltazar Childers MD [facility] CPT-72761 Level 4 Est. Patient 14:52:45 HOME PERFORMANCE CONSULTANT Baltazar Childers MD [facility] CPT-16804 Level 4 Est. Patient 14:18:34 HOME PERFORMANCE CONSULTANT Baltazar Childers MD [facility] CPT-86355 Level 4 Est. Patient 15:18:29 CDT Baltazar Childers MD [facility] CPT-80139 Level 3 Est. Patient 12:45:34 CDT Baltazar Childers MD [facility] CPT-24579 Level 3 Est. Patient 10:10:11 CDT Baltazar Childers MD [facility] CPT-81430 Level 3 Est. Patient 14:07:50 CDT Baltazar Childers MD [facility] CPT-85388 Level 4 Est. Patient 12:26:10 HOME PERFORMANCE CONSULTANT Baltazar Childers MD [facility] CPT-21331 Level 4 Est. Patient 14:45:38 CDT Baltazar Childers MD [facility] CPT-51627 Level 4 New Patient 12:30:48 CDT Baltazar hinton MD [facility] Procedures Code Procedure Name Date Entry Date Standard Desc ription CPT-48371 First Vx Component - Ix admi n via ID IM or jet inj without physician counseling 15:17:19 HOME PERFORMANCE CONSULTANT CPT-74388 Pneumovax 15:17:19 HOME PERFORMANCE CONSULTANT CPT-63788 Pneumovax 14:52:45 HOME PERFORMANCE CONSULTANT CPT-42001 Venipuncture Draw Fee 14:06:30 HOME PERFORMANCE CONSULTANT CPT-000 Give Appropriate Flu Vaccine 14:18:34 HOME PERFORMANCE CONSULTANT 2 CPT-67940 Administration single or combination vac cine inc oral 14:46:00 HOME PERFORMANCE CONSULTANT CPT-48800 Influenza split virus > age 3 14:46:00 HOME PERFORMANCE CONSULTANT CPT-OV Office Visit 19:13:16 CDT CPT-03301 Zostavax 18:41:56 CDT CPT-94250 Administration single or combination vac cine inc oral 12:56:39 CDT CPT-72101 Zoster Vaccine (Zostavax) 12:56:39 CDT 2012 CPT-50818 Venipuncture Draw Fee 10:58:57 CDT CPT-35118 Sono pelvis non OB uterus ovaries cervix 17:45:04 CDT CPT-32599 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
--- OUTSIDE RECORDS SUMMARY | 2019-10-27 13:55 | XMS REPORT | Clinical Summary ---
Author Author Admin, Elba Lance [facility] Address Unknown Phone Allergies, Adverse Reactions, [...] y atherosclerosis of unspecified type of vessel, [place] [...] tab every 6-8 hour s PRN HYDROCODONE-ACETAMINOPHEN 01440373426 Active Baltazar Childers MD Active NORTRIPTYLINE HCL 50 MG CAPS 1 every night for neuropathy 4 NORTRIPTYLINE HCL 86252480849 Active Baltazar Childers MD Acti ve GABAPENTIN 300 MG CAPS 1 three times a day GABAPE NTIN 99072810219 Active Baltazar Childers MD Active GABAPENTIN 300 MG CAPS 1 po qd x 2 days, then 1 po BID x 2 d ays, then 1 po TID GABAPENTIN 28245516178 No Longer Active Baltazar silverman MD Active TRAMADOL HCL 50 MG TABS 1 twice a day as needed for pain TRAMADOL HCL 86919232722 Active Baltazar Childers MD Active NAPROXEN 500 MG TABS 1 tablet by mouth twice daily NAPROXEN 41479582312 No Longer Active Baltazar Childers MD Active PROAIR HFA 108 (90 BASE) MCG/ACT AERS 2 puffs four times a d ay as needed ALBUTEROL SULFATE 37178035589 Active Baltazar Childers MD Active DEPO-TESTOSTERONE 200 MG/ML OIL as directed RUFINO TOSTERONE CYPIONATE 78032974812 No Longer Active Baltazar Childers MD Active LIPITOR 20 MG TABS Take one by mouth daily in evening ATORVASTATIN CALCIUM 53041725498 No Longer Active Baltazar Childers MD Activ e CRESTOR 10 MG TABS 1 by mouth every day R OSUVASTATIN CALCIUM 91536485629 No Longer Active Baltazar Childers MD Activ e PHENTERMINE HCL 37.5 MG TABS Take one by mouth daily 2 PHENTERMINE HCL 25806048287 No Longer Active Baltazar Childers MD Activ e ROBAXIN-750 750 MG TABS Take one by mouth daily ME THOCARBAMOL 26670952851 Active Baltazar Childers MD Active TIZANIDINE HCL 4 MG TABS 1 daily as needed for muscle spasm 2011 TIZANIDINE HCL 56254150556 No Longer Active Dawna Salazar RN Active ONETOUCH ULTRA BLUE STRP Test twice a day GLUCO SE BLOOD 81824770282 Active Baltazar Childers MD Active [id number] 50-325-40 MG TABS 1 four time s a day as needed for heacache [id number]-ZWEWRAVZ 73543743218 Active Baltazar Childers MD Active SUMATRIPTAN SUCCINATE 100 MG TABS 1 tablet by mouth at onset of migraine as needed SUMATRIPTAN SUCCINATE 67277245366 Active Shireen Miller APRN Active LORATADINE 10 MG TABS Take one by mouth daily LORATADINE 43185832108 Active Brad Hughes Active FUROSEMIDE 40 MG TABS Take one by mouth daily FUROSEMIDE 37666912021 Active Shireen Miller APRN Active LISINOPRIL 20 MG TABS Take one by mouth daily at bedtime LISINOPRIL 10445658223 Active Shireen Miller APRN Active OMEPRAZOLE 20 MG CPDR Take one by mouth daily OMEPRAZOLE 34976953810 Active Shireen Miller APRN Active HYDROXYZINE HCL 25 MG TABS Take one by mouth daily HYDROXYZINE HCL 30432439173 Active Shireen Miller APRN Active GLIPIZIDE 10 MG TABS 1 tablet by mouth twice daily GLIPIZIDE 97670025911 Active Shireen Miller APRN Active ALPRAZOLAM 1 MG TABS 1 tablet by mouth daily at bedtime for restles s leg ALPRAZOLAM 35495768405 Active Baltazar Childers MD Active METFORMIN HCL 1000 MG TABS Take one by mouth twice daily METFORMIN HCL 02144098939 Active Shireen Miller APRN Active TIZANIDINE HCL 4 MG TABS 1 daily as needed for muscle spasm 2011 TIZANIDINE HCL 4 MG TABS 827646 TIZANIDINE HCL Inactiv e PHENTERMINE HCL 37.5 MG TABS Take one by mouth daily 2 PHENTERMINE HCL 37.5 MG TABS 676283 PHENTERMINE HCL Inactive CRESTOR 10 MG TABS 1 by mouth every day C RESTOR 10 MG TABS ROSUVASTATIN CALCIUM Inactive LIPITOR 20 MG TABS Take one by mouth daily in evening LIPITOR 20 MG TABS 176234 ATORVASTATIN CALCIUM Inactive DEPO-TESTOSTERONE 200 MG/ML OIL as directed 8 DEPO-TESTOSTERONE 200 MG/ML OIL 141346 TESTOSTERONE CYPIONATE Inactive NAPROXEN 500 MG TABS 1 tablet by mouth twice daily 201 07/27/22 NAPROXEN 500 MG TABS 372072 NAPROXEN Inactive GABAPENTIN 300 MG CAPS 1 po qd x 2 days, then 1 po BID x 2 d ays, then 1 po TID GABAPENTIN 300 MG CAPS 540963 GABAPENTIN Inact amie Immunizations Vaccine Administration Date Value Standard Floyd cription pneumococcal immunization administered Pneumovax 23 [CVX33] pneumococcal polysaccharide vaccine, 23 valent Seasonal influenza vaccine, injectable, containing preservative, for > 3 years old (Afluria, FluLaval, Fluzone, Fluvirin, Fluarix, Agriflu(>= 18 yo)) Fluzone (>3 yrs.) [QZY261] Influenza, seasonal, inject able Seasonal influenza vaccine, injectable, containing preservative, for > 3 years old (Afluria, FluLaval, Fluzone, Fluvirin, Fluarix, Agriflu(>= 18 yo)) Fluzone (>3 yrs.) [IJQ190] Influenza, seasonal, inject able Vital Signs Date [...] C - Chemistry sodium, serum 140 mmol/L 188-136 1154/02/26 potassium, serum 5.3 mmol/L 3.5-5.2 chloride, serum 101 mmol/L 98-107 carbon dioxide, venous blood 36.9 mmol/L 21.0-32 .0 blood glucose 151 mg/dL 65-110 calcium, serum 8.7 mg/dL 8.5-10.1 urea nitrogen, blood 19 mg/dL 7-18 creatinine, serum 1.60 mg/dL 0.60-1.30 hemoglobin A1C, blood, as % of total hemoglobin 7.9 % 4.3-6.0 Lab Report: CBC, Basic Metabolic Panel, HGBA1C - Chemistry sodium, serum 138 mmol/L 855-860 7332/05/23 potassium, serum 4.9 mmol/L 3.5-5.2 chloride, serum [...] 0.39 mg/dL 0.00-1.00 cholesterol, serum 345 mg/dL 347-950 1485/08/26 triglyceride, serum, fasting 635 mg/dL 30-200 HDL [...] Panel - Chemistry sodium, serum 136 mmol/L 173-619 8969/01/06 potassium, serum 5.1 mmol/L 3.5-5.2 chloride, serum [...] Panel - Chemistry sodium, serum 139 mmol/L 319-883 6675/08/26 potassium, serum 5.8 mmol/L 3.5-5.2 chloride, serum 98 mmol/L 98-107 carbon dioxide, venous blood 33.0 mmol/L 21.0-32 .0 blood glucose 107 mg/dL 65-110 urea nitrogen, blood 26 mg/dL 7-18 creatinine, serum 1.80 mg/dL 0.60-1.30 calcium, serum 9.3 mg/dL 8.5-10.1 sodium, serum 138 mmol/L 817-390 6442/06/17 potassium, serum 4.9 mmol/L 3.5-5.2 chloride, serum [...] mg/dL Encounters Code Encounter Date Provider Facility CPT-52426 Level 4 Est. Patient 14:52:45 RECREATION ATTENDANT SUPERVISOR Baltazar Childers MD [facility] CPT-09677 Level 4 Est. Patient 14:18:34 RECREATION ATTENDANT SUPERVISOR Baltazar Childers MD [facility] CPT-49616 Level 4 Est. Patient 15:18:29 CDT Baltazar Childers MD [facility] CPT-45386 Level 3 Est. Patient 12:45:34 CDT Baltazar Childers MD [facility] CPT-69237 Level 3 Est. Patient 10:10:11 CDT Baltazar Childers MD [facility] CPT-67866 Level 3 Est. Patient 14:07:50 CDT Baltazar Childers MD [facility] CPT-05865 Level 4 Est. Patient 12:26:10 RECREATION ATTENDANT SUPERVISOR Baltazar Childers MD [facility] CPT-32964 Level 4 Est. Patient 14:45:38 CDT Baltazar Childers MD [facility] CPT-66088 Level 4 New Patient 12:30:48 CDT Baltazar hinton MD [facility] Procedures Code Procedure Name Date Entry Date Standard Desc ription CPT-75828 First Vx Component - Ix admi n via ID IM or jet inj without physician counseling 15:17:19 RECREATION ATTENDANT SUPERVISOR CPT-24204 Pneumovax 23 15:17:19 RECREATION ATTENDANT SUPERVISOR CPT-19478 Pneumovax 14:52:45 RECREATION ATTENDANT SUPERVISOR CPT-88285 Venipuncture Draw Fee 14:06:30 RECREATION ATTENDANT SUPERVISOR CPT-000 Give Appropriate Flu Vaccine 14:18:34 RECREATION ATTENDANT SUPERVISOR 2 CPT-15784 Administration single or combination vac cine inc oral 14:46:00 RECREATION ATTENDANT SUPERVISOR CPT-09034 Influenza split virus > age 3 14:46:00 RECREATION ATTENDANT SUPERVISOR CPT-OV Office Visit 19:13:16 CDT CPT-17478 Zostavax 18:41:56 CDT CPT-74049 Administration single or combination vac cine inc oral 12:56:39 CDT CPT-26920 Zoster Vaccine (Zostavax) 12:56:39 CDT 2012 CPT-99318 Venipuncture Draw Fee 10:58:57 CDT CPT-62657 Sono pelvis non OB uterus ovaries cervix 17:45:04 CDT CPT-56644 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
--- OUTSIDE RECORDS SUMMARY | 2019-10-27 13:56 | XMS REPORT | Clinical Summary ---
Author Author Admin, Elba Lance [facility] Address Unknown [...] libido COLON POLYPS 211.[address]Y [address] CLERK Benign neoplasm of colon PERIPHERAL NEUROPATHY [...] y atherosclerosis of unspecified type of vessel, [place] [...] tab every 6-8 hour s PRN HYDROCODONE-ACETAMINOPHEN 24943844249 Active Baltazar Childers MD Active NORTRIPTYLINE HCL 50 MG CAPS 1 every night for neuropathy 4 NORTRIPTYLINE HCL 36841988639 Active Baltazar Childers MD Acti ve GABAPENTIN 300 MG CAPS 1 three times a day GABAPE NTIN 17242348047 Active Baltazar Childers MD Active GABAPENTIN 300 MG CAPS 1 po qd x 2 days, then 1 po BID x 2 d ays, then 1 po TID GABAPENTIN 73823099075 No Longer Active Baltazar sivlerman MD Active TRAMADOL HCL 50 MG TABS 1 twice a day as needed for pain TRAMADOL HCL 06034454976 Active Baltazar Childers MD Active NAPROXEN 500 MG TABS 1 tablet by mouth twice daily NAPROXEN 67026571274 No Longer Active Baltazar Childers MD Active PROAIR HFA 108 (90 BASE) MCG/ACT AERS 2 puffs four times a d ay as needed ALBUTEROL SULFATE 80875835580 Active Baltazar Childers MD Active DEPO-TESTOSTERONE 200 MG/ML OIL as directed RUFINO TOSTERONE CYPIONATE 89312856024 No Longer Active Baltazar Childers MD Active LIPITOR 20 MG TABS Take one by mouth daily in evening ATORVASTATIN CALCIUM 36967200540 No Longer Active Baltazar Childers MD Activ e CRESTOR 10 MG TABS 1 by mouth every day R OSUVASTATIN CALCIUM 83149230918 No Longer Active Baltazar Childers MD Activ e PHENTERMINE HCL 37.5 MG TABS Take one by mouth daily 2 PHENTERMINE HCL 25570267670 No Longer Active Baltazar Childers MD Activ e ROBAXIN-750 750 MG TABS Take one by mouth daily ME THOCARBAMOL 49993924414 Active Baltazar Childers MD Active TIZANIDINE HCL 4 MG TABS 1 daily as needed for muscle spasm 2011 TIZANIDINE HCL 42254458776 No Longer Active Dawna Salazar RN Active ONETOUCH ULTRA BLUE STRP Test twice a day GLUCO SE BLOOD 59115561293 Active Baltazar Childers MD Active [id number] 50-325-40 MG TABS 1 four time s a day as needed for heacache [id number] 09330096670 Active Baltazar Childers MD Active SUMATRIPTAN SUCCINATE 100 MG TABS 1 tablet by mouth at onset of migraine as needed SUMATRIPTAN SUCCINATE 16384428269 Active Baltazar bynum MD Active LORATADINE 10 MG TABS Take one by mouth daily LORATADINE 39251480089 Active Baltazar Childers MD Active FUROSEMIDE 40 MG TABS Take one by mouth daily FUROSEMIDE 93832802258 Active Baltazar Childers MD Active LISINOPRIL 20 MG TABS Take one by mouth daily at bedtime LISINOPRIL 84144334774 Active Baltazar Childers MD Active OMEPRAZOLE 20 MG CPDR Take one by mouth daily OMEPRAZOLE 08332460877 Active Baltazar Childers MD Active HYDROXYZINE HCL 25 MG TABS Take one by mouth daily HYDROXYZINE HCL 46008081119 Active Baltazar Childers MD Active GLIPIZIDE 10 MG TABS 1 tablet by mouth twice daily GLIPIZIDE 47178193192 Active Baltazar Childers MD Active ALPRAZOLAM 1 MG TABS 1 tablet by mouth daily at bedtime for restles s leg ALPRAZOLAM 80614966415 Active Baltazar Childers MD Active METFORMIN HCL 1000 MG TABS Take one by mouth twice daily METFORMIN HCL 73593436097 Active Baltazar Childers MD Active TIZANIDINE HCL 4 MG TABS 1 daily as needed for muscle spasm 2011 TIZANIDINE HCL 4 MG TABS 139555 TIZANIDINE HCL Inactiv e PHENTERMINE HCL 37.5 MG TABS Take one by mouth daily 2 PHENTERMINE HCL 37.5 MG TABS 610572 PHENTERMINE HCL Inactive CRESTOR 10 MG TABS 1 by mouth every day C RESTOR 10 MG TABS ROSUVASTATIN CALCIUM Inactive LIPITOR 20 MG TABS Take one by mouth daily in evening LIPITOR 20 MG TABS 449402 ATORVASTATIN CALCIUM Inactive DEPO-TESTOSTERONE 200 MG/ML OIL as directed 8 DEPO-TESTOSTERONE 200 MG/ML OIL 824701 TESTOSTERONE CYPIONATE Inactive NAPROXEN 500 MG TABS 1 tablet by mouth twice daily 201 07/27/22 NAPROXEN 500 MG TABS 722425 NAPROXEN Inactive GABAPENTIN 300 MG CAPS 1 po qd x 2 days, then 1 po BID x 2 d ays, then 1 po TID GABAPENTIN 300 MG CAPS 954048 GABAPENTIN Inact amie Immunizations Vaccine Administration Date Value Standard Floyd cription pneumococcal immunization administered Pneumovax 23 [CVX33] pneumococcal polysaccharide vaccine, 23 valent Seasonal influenza vaccine, injectable, containing preservative, for > 3 years old (Afluria, FluLaval, Fluzone, Fluvirin, Fluarix, Agriflu(>= 18 yo)) Fluzone (>3 yrs.) [[id number]] Influenza, seasonal, inject able Seasonal influenza vaccine, injectable, containing preservative, for > 3 years old (Afluria, FluLaval, Fluzone, Fluvirin, Fluarix, Agriflu(>= 18 yo)) Fluzone (>3 yrs.) [[id number]] Influenza, seasonal, inject able Vital Signs Date [...] C - Chemistry sodium, serum 140 mmol/L 575-207 9337/02/26 potassium, serum 5.3 mmol/L 3.5-5.2 chloride, serum [...] 0.39 mg/dL 0.00-1.00 cholesterol, serum 345 mg/dL 840-760 9738/08/26 triglyceride, serum, fasting 635 mg/dL 30-200 HDL [...] Panel - Chemistry sodium, serum 136 mmol/L 336-596 8815/01/06 potassium, serum 5.1 mmol/L 3.5-5.2 chloride, serum [...] mg/g mg/g{creat} 0-29 cholesterol, serum 319 mg/dL 652-154 6261/08/21 triglyceride, serum, fasting 546 mg/dL 30-200 HDL cholesterol, serum 39 mg/dL 32-96 LDL cholesterol, serum 167.00 mg/dL 5.00-130.00 hemoglobin A1C, blood, as % of total hemoglobin 7.7 % 4.3-6.0 sodium, serum 138 mmol/L 371-603 4066/08/21 potassium, serum 4.3 mmol/L 3.5-5.2 chloride, serum [...] Panel - Chemistry sodium, serum 139 mmol/L 503-364 8468/08/26 potassium, serum 5.8 mmol/L 3.5-5.2 chloride, serum [...] mg/dL Encounters Code Encounter Date Provider Facility CPT-04602 Level 4 Est. Patient 12:20:13 CDT Baltazar Childers MD [facility] CPT-56270 Level 4 Est. Patient 14:52:45 ASSOCIATE ACCOUNT EXECUTIVE Baltazar Childers MD [facility] CPT-05032 Level 4 Est. Patient 14:18:34 ASSOCIATE ACCOUNT EXECUTIVE Baltazar Childers MD [facility] CPT-30793 Level 4 Est. Patient 15:18:29 CDT Baltazar Childers MD [facility] CPT-15748 Level 3 Est. Patient 12:45:34 CDT Baltazar Childers MD [facility] CPT-08195 Level 3 Est. Patient 10:10:11 CDT Baltazar Childers MD [facility] CPT-12399 Level 3 Est. Patient 14:07:50 CDT Baltazar Childers MD [facility] CPT-34961 Level 4 Est. Patient 12:26:10 ASSOCIATE ACCOUNT EXECUTIVE Baltazar Childers MD [facility] CPT-84991 Level 4 Est. Patient 14:45:38 CDT Baltazar Childers MD [facility] CPT-63396 Level 4 New Patient 12:30:48 CDT Baltazar hinton MD [facility] Procedures Code Procedure Name Date Entry Date Standard Desc ription CPT-60457 First Vx Component - Ix admi n via ID IM or jet inj without physician counseling 15:17:19 ASSOCIATE ACCOUNT EXECUTIVE CPT-03043 Pneumovax 15:17:19 ASSOCIATE ACCOUNT EXECUTIVE CPT-37199 Pneumovax 14:52:45 ASSOCIATE ACCOUNT EXECUTIVE CPT-22020 Venipuncture Draw Fee 14:06:30 ASSOCIATE ACCOUNT EXECUTIVE CPT-000 Give Appropriate Flu Vaccine 14:18:34 ASSOCIATE ACCOUNT EXECUTIVE 2 CPT-34295 Administration single or combination vac cine inc oral 14:46:00 ASSOCIATE ACCOUNT EXECUTIVE CPT-32865 Influenza split virus > age 3 14:46:00 ASSOCIATE ACCOUNT EXECUTIVE CPT-OV Office Visit 19:13:16 CDT CPT-53323 Zostavax 18:41:56 CDT CPT-79438 Administration single or combination vac cine inc oral 12:56:39 CDT CPT-79465 Zoster Vaccine (Zostavax) 12:56:39 CDT 2012 CPT-31877 Venipuncture Draw Fee 10:58:57 CDT CPT-17889 Sono pelvis non OB uterus ovaries cervix 17:45:04 CDT CPT-61693 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
--- OUTSIDE RECORDS SUMMARY | 2019-10-27 13:56 | XMS REPORT | Clinical Summary ---
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 Benign neoplasm of colon PERIPHERAL [...] y atherosclerosis of unspecified type of vessel, [place] [...] tab every 6-8 hour s PRN HYDROCODONE-ACETAMINOPHEN 00519480595 Active Baltazar Childers MD Active NORTRIPTYLINE HCL 50 MG CAPS 1 every night for neuropathy 4 NORTRIPTYLINE HCL 79750856581 Active Amaris Jason MD PhD Act amie GABAPENTIN 300 MG CAPS 1 three times a day GABAPE NTIN 86366680830 Active Baltazar Childers MD Active GABAPENTIN 300 MG CAPS 1 po qd x 2 days, then 1 po BID x 2 d ays, then 1 po TID GABAPENTIN 98501224328 No Longer Active Baltazar silverman MD Active TRAMADOL HCL 50 MG TABS 1 twice a day as needed for pain TRAMADOL HCL 68523253540 Active Baltazar Childers MD Active NAPROXEN 500 MG TABS 1 tablet by mouth twice daily NAPROXEN 14353295448 No Longer Active Baltazar Childers MD Active PROAIR HFA 108 (90 BASE) MCG/ACT AERS 2 puffs four times a d ay as needed ALBUTEROL SULFATE 00516751566 Active Baltazar Childers MD Active DEPO-TESTOSTERONE 200 MG/ML OIL as directed RUFINO TOSTERONE CYPIONATE 43798790494 No Longer Active Baltazar Childers MD Active LIPITOR 20 MG TABS Take one by mouth daily in evening ATORVASTATIN CALCIUM 38554438264 No Longer Active Baltazar Childers MD Activ e CRESTOR 10 MG TABS 1 by mouth every day R OSUVASTATIN CALCIUM 98349578486 No Longer Active Baltazar Childers MD Activ e PHENTERMINE HCL 37.5 MG TABS Take one by mouth daily 2 PHENTERMINE HCL 89547052451 No Longer Active Baltazar Childers MD Activ e ROBAXIN-750 750 MG TABS Take one by mouth daily ME THOCARBAMOL 83606261240 Active Baltazar Childers MD Active TIZANIDINE HCL 4 MG TABS 1 daily as needed for muscle spasm 2011 TIZANIDINE HCL 15662787003 No Longer Active Dawna Salazar RN Active ONETOUCH ULTRA BLUE STRP Test twice a day GLUCO SE BLOOD 79597211071 Active Baltazar Childers MD Active [id number] 50-325-40 MG TABS 1 four time s a day as needed for heacache [id number] 39223441935 Active Baltazar Childers MD Active SUMATRIPTAN SUCCINATE 100 MG TABS 1 tablet by mouth at onset of migraine as needed SUMATRIPTAN SUCCINATE 21142235730 Active Baltazar bynum MD Active LORATADINE 10 MG TABS Take one by mouth daily LORATADINE 62975650370 Active Baltazar Childers MD Active FUROSEMIDE 40 MG TABS Take one by mouth daily FUROSEMIDE 56730983974 Active Baltazar Childers MD Active LISINOPRIL 20 MG TABS Take one by mouth daily at bedtime LISINOPRIL 39225172273 Active Baltazar Childers MD Active OMEPRAZOLE 20 MG CPDR Take one by mouth daily OMEPRAZOLE 88781191887 Active Baltazar Childers MD Active HYDROXYZINE HCL 25 MG TABS Take one by mouth daily HYDROXYZINE HCL 65095629825 Active Baltazar Childers MD Active GLIPIZIDE 10 MG TABS 1 tablet by mouth twice daily GLIPIZIDE 31424782334 Active Baltazar Childers MD Active ALPRAZOLAM 1 MG TABS 1 tablet by mouth daily at bedtime for restles s leg ALPRAZOLAM 69649576557 Active Baltazar Childers MD Active METFORMIN HCL 1000 MG TABS Take one by mouth twice daily METFORMIN HCL 82121582392 Active Baltazar Childers MD Active TIZANIDINE HCL 4 MG TABS 1 daily as needed for muscle spasm 2011 TIZANIDINE HCL 4 MG TABS 842984 TIZANIDINE HCL Inactiv e PHENTERMINE HCL 37.5 MG TABS Take one by mouth daily 2 PHENTERMINE HCL 37.5 MG TABS 223497 PHENTERMINE HCL Inactive CRESTOR 10 MG TABS 1 by mouth every day C RESTOR 10 MG TABS ROSUVASTATIN CALCIUM Inactive LIPITOR 20 MG TABS Take one by mouth daily in evening LIPITOR 20 MG TABS 064501 ATORVASTATIN CALCIUM Inactive DEPO-TESTOSTERONE 200 MG/ML OIL as directed 8 DEPO-TESTOSTERONE 200 MG/ML OIL 135913 TESTOSTERONE CYPIONATE Inactive NAPROXEN 500 MG TABS 1 tablet by mouth twice daily 201 07/27/22 NAPROXEN 500 MG TABS 748189 NAPROXEN Inactive GABAPENTIN 300 MG CAPS 1 po qd x 2 days, then 1 po BID x 2 d ays, then 1 po TID GABAPENTIN 300 MG CAPS 325103 GABAPENTIN Inact amie Immunizations Vaccine Administration Date Value Standard Floyd cription pneumococcal immunization administered Pneumovax 23 [CVX33] pneumococcal polysaccharide vaccine, 23 valent Seasonal influenza vaccine, injectable, containing preservative, for > 3 years old (Afluria, FluLaval, Fluzone, Fluvirin, Fluarix, Agriflu(>= 18 yo)) Fluzone (>3 yrs.) [[id number]] Influenza, seasonal, inject able Seasonal influenza vaccine, injectable, containing preservative, for > 3 years old (Afluria, FluLaval, Fluzone, Fluvirin, Fluarix, Agriflu(>= 18 yo)) Fluzone (>3 yrs.) [[id number]] Influenza, seasonal, inject able Vital Signs Date [...] C - Chemistry sodium, serum 140 mmol/L 215-377 1748/02/26 potassium, serum 5.3 mmol/L 3.5-5.2 chloride, serum [...] Panel - Chemistry sodium, serum 136 mmol/L 724-798 3528/01/06 potassium, serum 5.1 mmol/L 3.5-5.2 chloride, serum [...] mg/g mg/g{creat} 0-29 cholesterol, serum 319 mg/dL 021-261 2808/08/21 triglyceride, serum, fasting 546 mg/dL 30-200 HDL cholesterol, serum 39 mg/dL 32-96 LDL cholesterol, serum 167.00 mg/dL 5.00-130.00 hemoglobin A1C, blood, as % of total hemoglobin 7.7 % 4.3-6.0 sodium, serum 138 mmol/L 858-088 7415/08/21 potassium, serum 4.3 mmol/L 3.5-5.2 chloride, serum [...] mg/dL Encounters Code Encounter Date Provider Facility CPT-11574 Level 4 Est. Patient 12:20:13 CDT [facility] CPT-62461 Level 4 Est. Patient 14:52:45 DENTURE MODEL MAKER Baltazar [facility] CPT-75518 Level 4 Est. Patient 14:18:34 DENTURE MODEL MAKER Baltazar [facility] CPT-33793 Level 4 Est. Patient 15:18:29 CDT Baltazar [facility] CPT-04798 Level 3 Est. Patient 12:45:34 CDT Baltazar [facility] CPT-30805 Level 3 Est. Patient 10:10:11 CDT Baltazar [facility] CPT-29881 Level 3 Est. Patient 14:07:50 CDT Baltazar [facility] CPT-47392 Level 4 Est. Patient 12:26:10 DENTURE MODEL MAKER Baltazar Childers [facility] CPT-11463 Level 4 Est. Patient 14:45:38 CDT Baltazar [facility] CPT-25565 Level 4 New Patient 12:30:48 CDT Baltazar hinton [facility] Procedures Code Procedure Name Date Entry Date Standard Desc ription CPT-24349 First Vx Component - Ix admi n via ID IM or jet inj without physician counseling 15:17:19 DENTURE MODEL MAKER CPT-83931 Pneumovax 23 15:17:19 DENTURE MODEL MAKER CPT-83026 Pneumovax 14:52:45 DENTURE MODEL MAKER CPT-92595 Venipuncture Draw Fee 14:06:30 DENTURE MODEL MAKER CPT-000 Give Appropriate Flu Vaccine 14:18:34 DENTURE MODEL MAKER 2 CPT-42619 Administration single or combination vac cine inc oral 14:46:00 DENTURE MODEL MAKER CPT-00193 Influenza split virus > age 3 14:46:00 DENTURE MODEL MAKER CPT-OV Office Visit 19:13:16 CDT CPT-16056 Zostavax 18:41:56 CDT CPT-51754 Administration single or combination vac cine inc oral 12:56:39 CDT CPT-78541 Zoster Vaccine (Zostavax) 12:56:39 CDT 2012 CPT-80283 Venipuncture Draw Fee 10:58:57 CDT CPT-03644 Sono pelvis non OB uterus ovaries cervix 17:45:04 CDT CPT-15433 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
--- OUTSIDE RECORDS SUMMARY | 2019-10-27 13:56 | XMS REPORT | Clinical Summary ---
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 Benign neoplasm of colon PERIPHERAL NEUROPATHY 356.9 [...] health care facility COLON POLYPS ICD-211.3 Inactive Loils Thomas APR N Medication List Medication Instructions Start Date Stop Date Generic Name NDC Status Provider Patient Instruction HYDROCODONE-ACETAMINOPHEN 7.5-325 MG TABS Take 1 tab every 6-8 hour s PRN HYDROCODONE-ACETAMINOPHEN 43288055962 Active Baltazar Childers MD Active NORTRIPTYLINE HCL 50 MG CAPS 1 every night for neuropathy 4 NORTRIPTYLINE HCL 54167191640 Active Baltazar Childers MD Acti ve GABAPENTIN 300 MG CAPS 1 three times a day GABAPE NTIN 23081975398 Active Baltazar Childers MD Active GABAPENTIN 300 MG CAPS 1 po qd x 2 days, then 1 po BID x 2 d ays, then 1 po TID GABAPENTIN 98932717801 No Longer Active Baltazar silverman MD Active TRAMADOL HCL 50 MG TABS 1 twice a day as needed for pain TRAMADOL HCL 96180978917 Active Baltazar Childers MD Active NAPROXEN 500 MG TABS 1 tablet by mouth twice daily NAPROXEN 22796083368 No Longer Active Baltazar Childers MD Active PROAIR HFA 108 (90 BASE) MCG/ACT AERS 2 puffs four times a d ay as needed ALBUTEROL SULFATE 20590783390 Active Baltazar Childers MD Active DEPO-TESTOSTERONE 200 MG/ML OIL as directed RUFINO TOSTERONE CYPIONATE 23892087117 No Longer Active Baltazar Childers MD Active LIPITOR 20 MG TABS Take one by mouth daily in evening ATORVASTATIN CALCIUM 27093903861 No Longer Active Baltazar Childers MD Activ e CRESTOR 10 MG TABS 1 by mouth every day R OSUVASTATIN CALCIUM 02804511599 No Longer Active Baltazar Childers MD Activ e PHENTERMINE HCL 37.5 MG TABS Take one by mouth daily 2 PHENTERMINE HCL 85173627111 No Longer Active Baltazar Childers MD Activ e ROBAXIN-750 750 MG TABS Take one by mouth daily ME THOCARBAMOL 04924844386 Active Baltazar Childers MD Active TIZANIDINE HCL 4 MG TABS 1 daily as needed for muscle spasm 2011 TIZANIDINE HCL 17886835416 No Longer Active Dawna Salazar RN Active ONETOUCH ULTRA BLUE STRP Test twice a day GLUCO SE BLOOD 76976632244 Active Baltazar Childers MD Active [id number]-[id number] 50-325-40 MG TABS 1 four time s a day as needed for heacache [id number] 95995923044 Active Baltazar Childers MD Active SUMATRIPTAN SUCCINATE 100 MG TABS 1 tablet by mouth at onset of migraine as needed SUMATRIPTAN SUCCINATE 26069732184 Active Baltazar bynum MD Active LORATADINE 10 MG TABS Take one by mouth daily LORATADINE 84865749728 Active Baltazar Childesr MD Active FUROSEMIDE 40 MG TABS Take one by mouth daily FUROSEMIDE 25812854839 Active Baltazar Childers MD Active LISINOPRIL 20 MG TABS Take one by mouth daily at bedtime LISINOPRIL 39019614046 Active Baltazar Childers MD Active OMEPRAZOLE 20 MG CPDR Take one by mouth daily OMEPRAZOLE 55234490032 Active Baltazar Childers MD Active HYDROXYZINE HCL 25 MG TABS Take one by mouth daily HYDROXYZINE HCL 93958342305 Active Baltazar Childers MD Active GLIPIZIDE 10 MG TABS 1 tablet by mouth twice daily GLIPIZIDE 44602936398 Active Baltazar Childers MD Active ALPRAZOLAM 1 MG TABS 1 tablet by mouth daily at bedtime for restles s leg ALPRAZOLAM 42940772180 Active Baltazar Childers MD Active METFORMIN HCL 1000 MG TABS Take one by mouth twice daily METFORMIN HCL 17186100582 Active Baltazar Childers MD Active TIZANIDINE HCL 4 MG TABS 1 daily as needed for muscle spasm 2011 TIZANIDINE HCL 4 MG TABS 749255 TIZANIDINE HCL Inactiv e PHENTERMINE HCL 37.5 MG TABS Take one by mouth daily 2 PHENTERMINE HCL 37.5 MG TABS 017196 PHENTERMINE HCL Inactive CRESTOR 10 MG TABS 1 by mouth every day C RESTOR 10 MG TABS ROSUVASTATIN CALCIUM Inactive LIPITOR 20 MG TABS Take one by mouth daily in evening LIPITOR 20 MG TABS 465787 ATORVASTATIN CALCIUM Inactive DEPO-TESTOSTERONE 200 MG/ML OIL as directed 8 DEPO-TESTOSTERONE 200 MG/ML OIL 798127 TESTOSTERONE CYPIONATE Inactive NAPROXEN 500 MG TABS 1 tablet by mouth twice daily 201 07/27/22 NAPROXEN 500 MG TABS 291084 NAPROXEN Inactive GABAPENTIN 300 MG CAPS 1 po qd x 2 days, then 1 po BID x 2 d ays, then 1 po TID GABAPENTIN 300 MG CAPS 472760 GABAPENTIN Inact amie Immunizations Vaccine Administration Date Value Standard Floyd cription pneumococcal immunization administered Pneumovax 23 [CVX33] pneumococcal polysaccharide vaccine, 23 valent Seasonal influenza vaccine, injectable, containing preservative, for > 3 years old (Afluria, FluLaval, Fluzone, Fluvirin, Fluarix, Agriflu(>= 18 yo)) Fluzone (>3 yrs.) [WMS494] Influenza, seasonal, inject able Seasonal influenza vaccine, injectable, containing preservative, for > 3 years old (Afluria, FluLaval, Fluzone, Fluvirin, Fluarix, Agriflu(>= 18 yo)) Fluzone (>3 yrs.) [[id number]] Influenza, seasonal, inject able Vital Signs Date [...] C - Chemistry sodium, serum 140 mmol/L 396-253 3017/02/26 potassium, serum 5.3 mmol/L 3.5-5.2 chloride, serum [...] 0.39 mg/dL 0.00-1.00 cholesterol, serum 345 mg/dL 859-476 3159/08/26 triglyceride, serum, fasting 635 mg/dL 30-200 HDL [...] Panel - Chemistry sodium, serum 136 mmol/L 160-076 3238/01/06 potassium, serum 5.1 mmol/L 3.5-5.2 chloride, serum [...] mg/g mg/g{creat} 0-29 cholesterol, serum 319 mg/dL 108-861 1735/08/21 triglyceride, serum, fasting 546 mg/dL 30-200 HDL cholesterol, serum 39 mg/dL 32-96 LDL cholesterol, serum 167.00 mg/dL 5.00-130.00 hemoglobin A1C, blood, as % of total hemoglobin 7.7 % 4.3-6.0 sodium, serum 138 mmol/L 241-880 0172/08/21 potassium, serum 4.3 mmol/L 3.5-5.2 chloride, serum [...] Panel - Chemistry sodium, serum 139 mmol/L 610-904 7425/08/26 potassium, serum 5.8 mmol/L 3.5-5.2 chloride, serum [...] mg/dL Encounters Code Encounter Date Provider Facility CPT-37528 Level 4 Est. Patient 12:20:13 CDT Baltazar Childers MD [facility] CPT-77533 Level 4 Est. Patient 14:52:45 CARE ANALYST Baltazar Childers MD [facility] CPT-18961 Level 4 Est. Patient 14:18:34 CARE ANALYST Baltazar Childers MD [facility] CPT-35115 Level 4 Est. Patient 15:18:29 CDT Baltazar Childers MD [facility] CPT-95677 Level 3 Est. Patient 12:45:34 CDT Baltazar Childers MD [facility] CPT-98163 Level 3 Est. Patient 10:10:11 CDT Baltazar Childers MD [facility] CPT-91994 Level 3 Est. Patient 14:07:50 CDT Baltazar Childers MD [facility] CPT-56259 Level 4 Est. Patient 12:26:10 CARE ANALYST Baltazar Childers MD [facility] CPT-61451 Level 4 Est. Patient 14:45:38 CDT Baltazar Childers MD [facility] CPT-43695 Level 4 New Patient 12:30:48 CDT Baltazar hinton MD [facility] Procedures Code Procedure Name Date Entry Date Standard Desc ription CPT-17507 First Vx Component - Ix admi n via ID IM or jet inj without physician counseling 15:17:19 CARE ANALYST CPT-09318 Pneumovax 15:17:19 CARE ANALYST CPT-18291 Pneumovax 14:52:45 CARE ANALYST CPT-25355 Venipuncture Draw Fee 14:06:30 CARE ANALYST CPT-000 Give Appropriate Flu Vaccine 14:18:34 CARE ANALYST 2 CPT-64432 Administration single or combination vac cine inc oral 14:46:00 CARE ANALYST CPT-98534 Influenza split virus > age 3 14:46:00 CARE ANALYST CPT-OV Office Visit 19:13:16 CDT CPT-87567 Zostavax 18:41:56 CDT CPT-57384 Administration single or combination vac cine inc oral 12:56:39 CDT CPT-21528 Zoster Vaccine (Zostavax) 12:56:39 CDT 2012 CPT-28320 Venipuncture Draw Fee 10:58:57 CDT CPT-27827 Sono pelvis non OB uterus ovaries cervix 17:45:04 CDT CPT-68223 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
--- OUTSIDE RECORDS SUMMARY | 2019-10-27 13:56 | XMS REPORT | Clinical Summary ---
Author Author Admin, Elba Lance [facility] Address Unknown Phone Allergies, Adverse [...] y atherosclerosis of unspecified type of vessel, nikolski [...] tab every 6-8 hour s PRN HYDROCODONE-ACETAMINOPHEN 74433666380 Active Baltazar Childers MD Active NORTRIPTYLINE HCL 50 MG CAPS 1 every night for neuropathy 4 NORTRIPTYLINE HCL 29293484105 Active Baltazar Childers MD Acti ve GABAPENTIN 300 MG CAPS 1 three times a day GABAPE NTIN 36964045892 Active Baltazar Childers MD Active GABAPENTIN 300 MG CAPS 1 po qd x 2 days, then 1 po BID x 2 d ays, then 1 po TID GABAPENTIN 43378351991 No Longer Active Baltazar silverman MD Active TRAMADOL HCL 50 MG TABS 1 twice a day as needed for pain TRAMADOL HCL 73769823052 Active Baltazar Childers MD Active NAPROXEN 500 MG TABS 1 tablet by mouth twice daily NAPROXEN 48780313191 No Longer Active Baltazar Childers MD Active PROAIR HFA 108 (90 BASE) MCG/ACT AERS 2 puffs four times a d ay as needed ALBUTEROL SULFATE 84030835448 Active Baltazar Childers MD Active DEPO-TESTOSTERONE 200 MG/ML OIL as directed RUFINO TOSTERONE CYPIONATE 98859503382 No Longer Active Baltazar Childers MD Active LIPITOR 20 MG TABS Take one by mouth daily in evening ATORVASTATIN CALCIUM 53305880747 No Longer Active Baltazar Childers MD Activ e CRESTOR 10 MG TABS 1 by mouth every day R OSUVASTATIN CALCIUM 72031500085 No Longer Active Baltazar Childers MD Activ e PHENTERMINE HCL 37.5 MG TABS Take one by mouth daily 2 PHENTERMINE HCL 44445289239 No Longer Active Baltazar Childers MD Activ e ROBAXIN-750 750 MG TABS Take one by mouth daily ME THOCARBAMOL 15523855564 Active Baltazar Childers MD Active TIZANIDINE HCL 4 MG TABS 1 daily as needed for muscle spasm 2011 TIZANIDINE HCL 19142703379 No Longer Active Dawna Salazar RN Active ONETOUCH ULTRA BLUE STRP Test twice a day GLUCO SE BLOOD 20433381716 Active Baltazar Childers MD Active [id number]-MHYI-[id number] 50-325-40 MG TABS 1 four time s a day as needed for heacache [id number] 45777520530 Active Baltazar Childers MD Active SUMATRIPTAN SUCCINATE 100 MG TABS 1 tablet by mouth at onset of migraine as needed SUMATRIPTAN SUCCINATE 95931280986 Active Shireen Miller APRN Active LORATADINE 10 MG TABS Take one by mouth daily LORATADINE 79373131446 Active Brad Hughes Active FUROSEMIDE 40 MG TABS Take one by mouth daily FUROSEMIDE 82284258254 Active Shireen Miller APRN Active LISINOPRIL 20 MG TABS Take one by mouth daily at bedtime LISINOPRIL 53106249526 Active Shireen Miller APRN Active OMEPRAZOLE 20 MG CPDR Take one by mouth daily OMEPRAZOLE 63867541655 Active Shireen Miller APRN Active HYDROXYZINE HCL 25 MG TABS Take one by mouth daily HYDROXYZINE HCL 65278009336 Active Shireen Miller APRN Active GLIPIZIDE 10 MG TABS 1 tablet by mouth twice daily GLIPIZIDE 18164503549 Active Shireen Miller APRN Active ALPRAZOLAM 1 MG TABS 1 tablet by mouth daily at bedtime for restles s leg ALPRAZOLAM 92915503282 Active Baltazar Childers MD Active METFORMIN HCL 1000 MG TABS Take one by mouth twice daily METFORMIN HCL 51565418519 Active Shireen Miller APRN Active TIZANIDINE HCL 4 MG TABS 1 daily as needed for muscle spasm 2011 TIZANIDINE HCL 4 MG TABS 456754 TIZANIDINE HCL Inactiv e PHENTERMINE HCL 37.5 MG TABS Take one by mouth daily 2 PHENTERMINE HCL 37.5 MG TABS 469724 PHENTERMINE HCL Inactive CRESTOR 10 MG TABS 1 by mouth every day C RESTOR 10 MG TABS ROSUVASTATIN CALCIUM Inactive LIPITOR 20 MG TABS Take one by mouth daily in evening LIPITOR 20 MG TABS 125708 ATORVASTATIN CALCIUM Inactive DEPO-TESTOSTERONE 200 MG/ML OIL as directed 8 DEPO-TESTOSTERONE 200 MG/ML OIL 263120 TESTOSTERONE CYPIONATE Inactive NAPROXEN 500 MG TABS 1 tablet by mouth twice daily 201 07/27/22 NAPROXEN 500 MG TABS 378698 NAPROXEN Inactive GABAPENTIN 300 MG CAPS 1 po qd x 2 days, then 1 po BID x 2 d ays, then 1 po TID GABAPENTIN 300 MG CAPS 036639 GABAPENTIN Inact amie Immunizations Vaccine Administration Date Value Standard Floyd cription pneumococcal immunization administered Pneumovax 23 [CVX33] pneumococcal polysaccharide vaccine, 23 valent Seasonal influenza vaccine, injectable, containing preservative, for > 3 years old (Afluria, FluLaval, Fluzone, Fluvirin, Fluarix, Agriflu(>= 18 yo)) Fluzone (>3 yrs.) [IKX756] Influenza, seasonal, inject able Seasonal influenza vaccine, injectable, containing preservative, for > 3 years old (Afluria, FluLaval, Fluzone, Fluvirin, Fluarix, Agriflu(>= 18 yo)) Fluzone (>3 yrs.) [SEP317] Influenza, seasonal, inject able Vital Signs Date [...] C - Chemistry sodium, serum 140 mmol/L 712-102 3073/02/26 potassium, serum 5.3 mmol/L 3.5-5.2 chloride, serum 101 mmol/L 98-107 carbon dioxide, venous blood 36.9 mmol/L 21.0-32 .0 blood glucose 151 mg/dL 65-110 calcium, serum 8.7 mg/dL 8.5-10.1 urea nitrogen, blood 19 mg/dL 7-18 creatinine, serum 1.60 mg/dL 0.60-1.30 hemoglobin A1C, blood, as % of total hemoglobin 7.9 % 4.3-6.0 Lab Report: CBC, Basic Metabolic Panel, HGBA1C - Chemistry sodium, serum 138 mmol/L 896-434 2065/05/23 potassium, serum 4.9 mmol/L 3.5-5.2 chloride, serum [...] 0.39 mg/dL 0.00-1.00 cholesterol, serum 345 mg/dL 086-085 6737/08/26 triglyceride, serum, fasting 635 mg/dL 30-200 HDL [...] Panel - Chemistry sodium, serum 136 mmol/L 102-847 6279/01/06 potassium, serum 5.1 mmol/L 3.5-5.2 chloride, serum [...] Panel - Chemistry sodium, serum 139 mmol/L 858-480 0621/08/26 potassium, serum 5.8 mmol/L 3.5-5.2 chloride, serum 98 mmol/L 98-107 carbon dioxide, venous blood 33.0 mmol/L 21.0-32 .0 blood glucose 107 mg/dL 65-110 urea nitrogen, blood 26 mg/dL 7-18 creatinine, serum 1.80 mg/dL 0.60-1.30 calcium, serum 9.3 mg/dL 8.5-10.1 sodium, serum 138 mmol/L 966-710 0327/06/17 potassium, serum 4.9 mmol/L 3.5-5.2 chloride, serum [...] mg/dL Encounters Code Encounter Date Provider Facility CPT-89318 Level 4 Est. Patient 14:52:45 INSERTER Baltazar Childers MD [facility] CPT-35152 Level 4 Est. Patient 14:18:34 INSERTER Baltazar Childers MD [facility] CPT-80909 Level 4 Est. Patient 15:18:29 CDT Baltazar Childers MD [facility] CPT-85484 Level 3 Est. Patient 12:45:34 CDT Baltazar Childers MD [facility] CPT-55554 Level 3 Est. Patient 10:10:11 CDT Baltazar Childers MD [facility] CPT-96980 Level 3 Est. Patient 14:07:50 CDT Baltazar Childers MD [facility] CPT-27218 Level 4 Est. Patient 12:26:10 INSERTER Baltazar Childers MD [facility] CPT-10364 Level 4 Est. Patient 14:45:38 CDT Baltazar Childers MD [facility] CPT-20494 Level 4 New Patient 12:30:48 CDT Baltazar hinton MD [facility] Procedures Code Procedure Name Date Entry Date Standard Desc ription CPT-22769 First Vx Component - Ix admi n via ID IM or jet inj without physician counseling 15:17:19 INSERTER CPT-12456 Pneumovax 15:17:19 INSERTER CPT-59305 Pneumovax 14:52:45 INSERTER CPT-21687 Venipuncture Draw Fee 14:06:30 INSERTER CPT-000 Give Appropriate Flu Vaccine 14:18:34 INSERTER 2 CPT-33873 Administration single or combination vac cine inc oral 14:46:00 INSERTER CPT-45014 Influenza split virus > age 3 14:46:00 INSERTER CPT-OV Office Visit 19:13:16 CDT CPT-95584 Zostavax 18:41:56 CDT CPT-19111 Administration single or combination vac cine inc oral 12:56:39 CDT CPT-99901 Zoster Vaccine (Zostavax) 12:56:39 CDT 2012 CPT-74283 Venipuncture Draw Fee 10:58:57 CDT CPT-62694 Sono pelvis non OB uterus ovaries cervix 17:45:04 CDT CPT-04359 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
--- OUTSIDE RECORDS SUMMARY | 2019-10-27 13:57 | XMS REPORT | Clinical Summary ---
Author Author Admin, Elba Lance [facility] Address Unknown Phone Allergies, Adverse Reactions, Alerts [...] y atherosclerosis of unspecified type of vessel, [place] or graft OTH NONSPC ABN FINDNG RAD&OTH [...] tab every 6-8 hour s PRN HYDROCODONE-ACETAMINOPHEN 19786320068 Active Baltazar Childers MD Active NORTRIPTYLINE HCL 50 MG CAPS 1 every night for neuropathy 4 NORTRIPTYLINE HCL 42339700440 Active Baltazar Childers MD Acti ve GABAPENTIN 300 MG CAPS 1 three times a day GABAPE NTIN 56310847221 Active Baltazar Childers MD Active GABAPENTIN 300 MG CAPS 1 po qd x 2 days, then 1 po BID x 2 d ays, then 1 po TID GABAPENTIN 04542635854 No Longer Active Baltazar silverman MD Active TRAMADOL HCL 50 MG TABS 1 twice a day as needed for pain TRAMADOL HCL 34360286908 Active Baltazar Childers MD Active NAPROXEN 500 MG TABS 1 tablet by mouth twice daily NAPROXEN 00489722871 No Longer Active Baltazar Childers MD Active PROAIR HFA 108 (90 BASE) MCG/ACT AERS 2 puffs four times a d ay as needed ALBUTEROL SULFATE 13951730221 Active Baltazar Childers MD Active DEPO-TESTOSTERONE 200 MG/ML OIL as directed RUFINO TOSTERONE CYPIONATE 86929391444 No Longer Active Baltazar Childers MD Active LIPITOR 20 MG TABS Take one by mouth daily in evening ATORVASTATIN CALCIUM 74252077202 No Longer Active Baltazar Childers MD Activ e CRESTOR 10 MG TABS 1 by mouth every day R OSUVASTATIN CALCIUM 14067657319 No Longer Active Baltazar Childers MD Activ e PHENTERMINE HCL 37.5 MG TABS Take one by mouth daily 2 PHENTERMINE HCL 69910619798 No Longer Active Baltazar Childers MD Activ e ROBAXIN-750 750 MG TABS Take one by mouth daily ME THOCARBAMOL 74081214514 Active Baltazar Childers MD Active TIZANIDINE HCL 4 MG TABS 1 daily as needed for muscle spasm 2011 TIZANIDINE HCL 65309310343 No Longer Active Dawna Salazar RN Active ONETOUCH ULTRA BLUE STRP Test twice a day GLUCO SE BLOOD 33543127034 Active Baltazar Childers MD Active [id number]-CRFI-[id number] 50-325-40 MG TABS 1 four time s a day as needed for heacache ZRMULTEMIJ-NEGO-OGYRCTUJ 30271328008 Active Baltazar Childers MD Active SUMATRIPTAN SUCCINATE 100 MG TABS 1 tablet by mouth at onset of migraine as needed SUMATRIPTAN SUCCINATE 09301422620 Active Shireen Miller APRN Active LORATADINE 10 MG TABS Take one by mouth daily LORATADINE 04535753845 Active Brad Hughes Active FUROSEMIDE 40 MG TABS Take one by mouth daily FUROSEMIDE 30836144713 Active Shireen Miller APRN Active LISINOPRIL 20 MG TABS Take one by mouth daily at bedtime LISINOPRIL 29028543359 Active Shireen Miller APRN Active OMEPRAZOLE 20 MG CPDR Take one by mouth daily OMEPRAZOLE 38787463084 Active Shireen Miller APRN Active HYDROXYZINE HCL 25 MG TABS Take one by mouth daily HYDROXYZINE HCL 60945928661 Active Shireen Miller APRN Active GLIPIZIDE 10 MG TABS 1 tablet by mouth twice daily GLIPIZIDE 38914990930 Active Shireen Miller APRN Active ALPRAZOLAM 1 MG TABS 1 tablet by mouth daily at bedtime for restles s leg ALPRAZOLAM 83109729428 Active Baltazar Childers MD Active METFORMIN HCL 1000 MG TABS Take one by mouth twice daily METFORMIN HCL 41548066992 Active Shireen Miller APRN Active TIZANIDINE HCL 4 MG TABS 1 daily as needed for muscle spasm 2011 TIZANIDINE HCL 4 MG TABS 967105 TIZANIDINE HCL Inactiv e PHENTERMINE HCL 37.5 MG TABS Take one by mouth daily 2 PHENTERMINE HCL 37.5 MG TABS 396013 PHENTERMINE HCL Inactive CRESTOR 10 MG TABS 1 by mouth every day C RESTOR 10 MG TABS ROSUVASTATIN CALCIUM Inactive LIPITOR 20 MG TABS Take one by mouth daily in evening LIPITOR 20 MG TABS 847165 ATORVASTATIN CALCIUM Inactive DEPO-TESTOSTERONE 200 MG/ML OIL as directed 8 DEPO-TESTOSTERONE 200 MG/ML OIL 701338 TESTOSTERONE CYPIONATE Inactive NAPROXEN 500 MG TABS 1 tablet by mouth twice daily 201 07/27/22 NAPROXEN 500 MG TABS 937193 NAPROXEN Inactive GABAPENTIN 300 MG CAPS 1 po qd x 2 days, then 1 po BID x 2 d ays, then 1 po TID GABAPENTIN 300 MG CAPS 480166 GABAPENTIN Inact amie Immunizations Vaccine Administration Date Value Standard Floyd cription pneumococcal immunization administered Pneumovax 23 [CVX33] pneumococcal polysaccharide vaccine, 23 valent Seasonal influenza vaccine, injectable, containing preservative, for > 3 years old (Afluria, FluLaval, Fluzone, Fluvirin, Fluarix, Agriflu(>= 18 yo)) Fluzone (>3 yrs.) [[id number]] Influenza, seasonal, inject able Seasonal influenza vaccine, injectable, containing preservative, for > 3 years old (Afluria, FluLaval, Fluzone, Fluvirin, Fluarix, Agriflu(>= 18 yo)) Fluzone (>3 yrs.) [[id number]] Influenza, seasonal, inject able Vital Signs Date [...] C - Chemistry sodium, serum 140 mmol/L 417-493 8920/02/26 potassium, serum 5.3 mmol/L 3.5-5.2 chloride, serum 101 mmol/L 98-107 carbon dioxide, venous blood 36.9 mmol/L 21.0-32 .0 blood glucose 151 mg/dL 65-110 calcium, serum 8.7 mg/dL 8.5-10.1 urea nitrogen, blood 19 mg/dL 7-18 creatinine, serum 1.60 mg/dL 0.60-1.30 hemoglobin A1C, blood, as % of total hemoglobin 7.9 % 4.3-6.0 Lab Report: CBC, Basic Metabolic Panel, HGBA1C - Chemistry sodium, serum 138 mmol/L 445-789 9919/05/23 potassium, serum 4.9 mmol/L 3.5-5.2 chloride, serum [...] 0.39 mg/dL 0.00-1.00 cholesterol, serum 345 mg/dL 125-538 4609/08/26 triglyceride, serum, fasting 635 mg/dL 30-200 HDL [...] Panel - Chemistry sodium, serum 136 mmol/L 622-271 5556/01/06 potassium, serum 5.1 mmol/L 3.5-5.2 chloride, serum [...] Panel - Chemistry sodium, serum 139 mmol/L 832-166 9680/08/26 potassium, serum 5.8 mmol/L 3.5-5.2 chloride, serum 98 mmol/L 98-107 carbon dioxide, venous blood 33.0 mmol/L 21.0-32 .0 blood glucose 107 mg/dL 65-110 urea nitrogen, blood 26 mg/dL 7-18 creatinine, serum 1.80 mg/dL 0.60-1.30 calcium, serum 9.3 mg/dL 8.5-10.1 sodium, serum 138 mmol/L 802-147 6321/06/17 potassium, serum 4.9 mmol/L 3.5-5.2 chloride, serum [...] mg/dL Encounters Code Encounter Date Provider Facility CPT-47689 Level 4 Est. Patient 14:52:45 PATIENT PARTNER Baltazar Childers MD [facility] CPT-58035 Level 4 Est. Patient 14:18:34 PATIENT PARTNER Baltazar Childers MD [facility] CPT-89101 Level 4 Est. Patient 15:18:29 CDT Baltazar Childers MD [facility] CPT-71627 Level 3 Est. Patient 12:45:34 CDT Baltazar Childers MD [facility] CPT-64187 Level 3 Est. Patient 10:10:11 CDT Baltazar Childers MD [facility] CPT-84717 Level 3 Est. Patient 14:07:50 CDT Baltazar Childers MD [facility] CPT-79152 Level 4 Est. Patient 12:26:10 PATIENT PARTNER Baltazar Childers MD [facility] CPT-56914 Level 4 Est. Patient 14:45:38 CDT Baltazar Childers MD [facility] CPT-94927 Level 4 New Patient 12:30:48 CDT Baltazar hinton MD [facility] Procedures Code Procedure Name Date Entry Date Standard Desc ription CPT-56208 First Vx Component - Ix admi n via ID IM or jet inj without physician counseling 15:17:19 PATIENT PARTNER CPT-95209 Pneumovax 23 15:17:19 PATIENT PARTNER CPT-73924 Pneumovax 14:52:45 PATIENT PARTNER CPT-07385 Venipuncture Draw Fee 14:06:30 PATIENT PARTNER CPT-000 Give Appropriate Flu Vaccine 14:18:34 PATIENT PARTNER 2 CPT-91842 Administration single or combination vac cine inc oral 14:46:00 PATIENT PARTNER CPT-39304 Influenza split virus > age 3 14:46:00 PATIENT PARTNER CPT-OV Office Visit 19:13:16 CDT CPT-28629 Zostavax 18:41:56 CDT CPT-53085 Administration single or combination vac cine inc oral 12:56:39 CDT CPT-78315 Zoster Vaccine (Zostavax) 12:56:39 CDT 2012 CPT-12034 Venipuncture Draw Fee 10:58:57 CDT CPT-43584 Sono pelvis non OB uterus ovaries cervix 17:45:04 CDT CPT-18683 Sono retroperitoneal complete kidneys an d bladder 17:14:36 CDT CPT-OV Office Visit 14:59:38 PATIENT PARTNER CPT-J1070 Depo Testosterone 100 mg 14:50:13 CDT 03/05 CPT-55088 Abx/Therapy Injection 14:50:13 CDT CPT-20207 Administration single or combination vac cine inc oral 14:34:43 CDT CPT-04264 Influenza split virus > age 3 14:34:43 CDT CPT-J1070 Depo Testosterone 100 mg 17:37:13 CDT 01/11 CPT-41083 Abx/Therapy Injection 17:37:13 CDT CPT-11956 Venipuncture Draw Fee 16:30:13 CDT CPT-04983 Venipuncture Draw Fee 16:29:43 CDT CPT-J1070 Depo Testosterone 100 mg 14:45:38 CDT 01/11
--- OUTSIDE RECORDS SUMMARY | 2019-10-27 13:57 | XMS REPORT | Clinical Summary ---
Author Author Admin, [facility] [...] libido COLON POLYPS 211.3 Resolved Lolis Thomas [employer]ER [employer]IVER Benign neoplasm of colon PERIPHERAL NEUROPATHY [...] y atherosclerosis of unspecified type of vessel, [place] or graft OTH NONSPC ABN FINDNG RAD&OTH [...] tab every 6-8 hour s PRN HYDROCODONE-ACETAMINOPHEN 78872713319 Active Baltazar Childers MD Active NORTRIPTYLINE HCL 50 MG CAPS 1 every night for neuropathy 4 NORTRIPTYLINE HCL 20457884411 Active Baltazar Childers MD Acti ve GABAPENTIN 300 MG CAPS 1 three times a day GABAPE NTIN 69553373271 Active Baltazar Childers MD Active GABAPENTIN 300 MG CAPS 1 po qd x 2 days, then 1 po BID x 2 d ays, then 1 po TID GABAPENTIN 85060008774 No Longer Active Baltazar silverman MD Active TRAMADOL HCL 50 MG TABS 1 twice a day as needed for pain TRAMADOL HCL 41043622796 Active Baltazar Childers MD Active NAPROXEN 500 MG TABS 1 tablet by mouth twice daily NAPROXEN 49885382186 No Longer Active Baltazar Childers MD Active PROAIR HFA 108 (90 BASE) MCG/ACT AERS 2 puffs four times a d ay as needed ALBUTEROL SULFATE 39514527483 Active Baltazar Childers MD Active DEPO-TESTOSTERONE 200 MG/ML OIL as directed RUFINO TOSTERONE CYPIONATE 73311092526 No Longer Active Baltazar Childers MD Active LIPITOR 20 MG TABS Take one by mouth daily in evening ATORVASTATIN CALCIUM 34120536306 No Longer Active Baltazar Childers MD Activ e CRESTOR 10 MG TABS 1 by mouth every day R OSUVASTATIN CALCIUM 41852772620 No Longer Active Baltazar Childers MD Activ e PHENTERMINE HCL 37.5 MG TABS Take one by mouth daily 2 PHENTERMINE HCL 24444253863 No Longer Active Baltazar Childers MD Activ e ROBAXIN-750 750 MG TABS Take one by mouth daily ME THOCARBAMOL 53793790669 Active Baltazar Childers MD Active TIZANIDINE HCL 4 MG TABS 1 daily as needed for muscle spasm 2011 TIZANIDINE HCL 42328420693 No Longer Active Dawna Salazar RN Active ONETOUCH ULTRA BLUE STRP Test twice a day GLUCO SE BLOOD 36510972212 Active Baltazar Childers MD Active KWGENDFMAL-HKGV-KABLQNIO 50-325-40 MG TABS 1 four time s a day as needed for heacache ERWPSUTUVX-CPZT-PILEDRCF 02587058479 Active Baltazar Childers MD Active SUMATRIPTAN SUCCINATE 100 MG TABS 1 tablet by mouth at onset of migraine as needed SUMATRIPTAN SUCCINATE 28329697529 Active Baltazar bynum MD Active LORATADINE 10 MG TABS Take one by mouth daily LORATADINE 90412481016 Active Baltazar Childers MD Active FUROSEMIDE 40 MG TABS Take one by mouth daily FUROSEMIDE 50739972722 Active Baltazar Childers MD Active LISINOPRIL 20 MG TABS Take one by mouth daily at bedtime LISINOPRIL 63548488755 Active Baltazar Childers MD Active OMEPRAZOLE 20 MG CPDR Take one by mouth daily OMEPRAZOLE 94417079494 Active Baltazar Childers MD Active HYDROXYZINE HCL 25 MG TABS Take one by mouth daily HYDROXYZINE HCL 40222997342 Active Baltazar Childers MD Active GLIPIZIDE 10 MG TABS 1 tablet by mouth twice daily GLIPIZIDE 08466135868 Active Baltazar Childers MD Active ALPRAZOLAM 1 MG TABS 1 tablet by mouth daily at bedtime for restles s leg ALPRAZOLAM 78930298657 Active Baltazar Childers MD Active METFORMIN HCL 1000 MG TABS Take one by mouth twice daily METFORMIN HCL 50898163504 Active Baltazar Childers MD Active TIZANIDINE HCL 4 MG TABS 1 daily as needed for muscle spasm 2011 TIZANIDINE HCL 4 MG TABS 053690 TIZANIDINE HCL Inactiv e PHENTERMINE HCL 37.5 MG TABS Take one by mouth daily 2 PHENTERMINE HCL 37.5 MG TABS 661748 PHENTERMINE HCL Inactive CRESTOR 10 MG TABS 1 by mouth every day C RESTOR 10 MG TABS ROSUVASTATIN CALCIUM Inactive LIPITOR 20 MG TABS Take one by mouth daily in evening LIPITOR 20 MG TABS 590901 ATORVASTATIN CALCIUM Inactive DEPO-TESTOSTERONE 200 MG/ML OIL as directed 8 DEPO-TESTOSTERONE 200 MG/ML OIL 654989 TESTOSTERONE CYPIONATE Inactive NAPROXEN 500 MG TABS 1 tablet by mouth twice daily 201 07/27/22 NAPROXEN 500 MG TABS 026019 NAPROXEN Inactive GABAPENTIN 300 MG CAPS 1 po qd x 2 days, then 1 po BID x 2 d ays, then 1 po TID GABAPENTIN 300 MG CAPS 890300 GABAPENTIN Inact amie Immunizations Vaccine Administration Date Value Standard Floyd cription pneumococcal immunization administered Pneumovax 23 [CVX33] pneumococcal polysaccharide vaccine, 23 valent Seasonal influenza vaccine, injectable, containing preservative, for > 3 years old (Afluria, FluLaval, Fluzone, Fluvirin, Fluarix, Agriflu(>= 18 yo)) Fluzone (>3 yrs.) [[id number]] Influenza, seasonal, inject able Seasonal influenza vaccine, injectable, containing preservative, for > 3 years old (Afluria, FluLaval, Fluzone, Fluvirin, Fluarix, Agriflu(>= 18 yo)) Fluzone (>3 yrs.) [[id number]] Influenza, seasonal, inject able Vital Signs Date [...] C - Chemistry sodium, serum 140 mmol/L 432-476 9637/02/26 potassium, serum 5.3 mmol/L 3.5-5.2 chloride, serum [...] 0.39 mg/dL 0.00-1.00 cholesterol, serum 345 mg/dL 663-485 3692/08/26 triglyceride, serum, fasting 635 mg/dL 30-200 HDL [...] Panel - Chemistry sodium, serum 136 mmol/L 172-716 4525/01/06 potassium, serum 5.1 mmol/L 3.5-5.2 chloride, serum [...] Panel - Chemistry sodium, serum 139 mmol/L 590-611 8146/08/26 potassium, serum 5.8 mmol/L 3.5-5.2 chloride, serum [...] mg/dL Encounters Code Encounter Date Provider Facility CPT-16076 Level 4 Est. Patient 12:20:13 CDT Baltazar Childers MD [facility] CPT-10899 Level 4 Est. 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 Patient 14:18:34 BASIN FINISH OPERATOR TIG WELDER Baltazar Childers MD [facility] CPT-64226 Level 4 Est. Patient 15:18:29 CDT Baltazar Childers MD [facility] CPT-90106 Level 3 Est. Patient 12:45:34 CDT Baltazar Childers MD [facility] CPT-78952 Level 3 Est. Patient 10:10:11 CDT Baltazar Childers MD [facility] CPT-75173 Level 3 Est. Patient 14:07:50 CDT Baltazar Childers MD [facility] CPT-71926 Level 4 Est. 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 CPT-47204 Pneumovax 15:17:19 BASIN FINISH OPERATOR TIG WELDER CPT-56135 Pneumovax 14:52:45 BASIN FINISH OPERATOR TIG WELDER CPT-80837 Venipuncture Draw Fee 14:06:30 BASIN FINISH OPERATOR TIG WELDER CPT-000 Give Appropriate Flu Vaccine 14:18:34 BASIN FINISH OPERATOR TIG WELDER 2 CPT-67093 Administration single or combination vac cine inc oral 14:46:00 BASIN FINISH OPERATOR TIG WELDER CPT-22185 Influenza split virus > age 3 14:46:00 BASIN FINISH OPERATOR TIG WELDER CPT-OV Office Visit 19:13:16 CDT CPT-62297 Zostavax 18:41:56 CDT CPT-57229 Administration single or combination vac cine inc oral 12:56:39 CDT CPT-49390 Zoster Vaccine (Zostavax) 12:56:39 CDT 2012 CPT-58374 Venipuncture Draw Fee 10:58:57 CDT CPT-08891 Sono pelvis non OB uterus ovaries cervix 17:45:04 CDT CPT-37987 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
--- OUTSIDE RECORDS SUMMARY | 2019-10-27 13:57 | XMS REPORT | Clinical Summary ---
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 Benign neoplasm of colon PERIPHERAL NEUROPATHY [...] y atherosclerosis of unspecified type of vessel, healy [...] MISC Test twice a day LANCET S 92907649935 Active Baltazar Childers MD Active TRUEDRAW LANCING DEVICE MISC Test twice a day L ANCET DEVICES 97472865983 Active Baltazar Childers MD Active TRUETRACK TEST STRP Test twice a day GLUCOSE BLOO D 11603295859 Active Baltazar Childers MD Active TRUETRACK BLOOD GLUCOSE W/DEVICE KIT Test twice a day BLOOD GLUCOSE MONITORING SUPPL 06289005056 Active Baltazar Childers MD Activ e HYDROCODONE-ACETAMINOPHEN 7.5-325 MG TABS Take 1 tab every 6-8 hour s PRN HYDROCODONE-ACETAMINOPHEN 69247310457 Active Baltazar Childers MD Active NORTRIPTYLINE HCL 50 MG CAPS 1 every night for neuropathy 4 NORTRIPTYLINE HCL 72170007237 Active Baltazar Childers MD Acti ve GABAPENTIN 300 MG CAPS 1 three times a day GABAPE NTIN 02412347348 Active Baltazar Childers MD Active GABAPENTIN 300 MG CAPS 1 po qd x 2 days, then 1 po BID x 2 d ays, then 1 po TID GABAPENTIN 83871363670 No Longer Active Baltazar silverman MD Active TRAMADOL HCL 50 MG TABS 1 twice a day as needed for pain TRAMADOL HCL 84645024842 Active Baltazar Childers MD Active NAPROXEN 500 MG TABS 1 tablet by mouth twice daily NAPROXEN 76517069853 No Longer Active Baltazar Childers MD Active PROAIR HFA 108 (90 BASE) MCG/ACT AERS 2 puffs four times a d ay as needed ALBUTEROL SULFATE 38699304730 Active Baltazar Childers MD Active DEPO-TESTOSTERONE 200 MG/ML OIL as directed RUFINO TOSTERONE CYPIONATE 48462361372 No Longer Active Baltazar Childers MD Active LIPITOR 20 MG TABS Take one by mouth daily in evening ATORVASTATIN CALCIUM 49793273382 No Longer Active Baltazar Childers MD Activ e CRESTOR 10 MG TABS 1 by mouth every day R OSUVASTATIN CALCIUM 94910827628 No Longer Active Baltazar Childers MD Activ e PHENTERMINE HCL 37.5 MG TABS Take one by mouth daily 2 PHENTERMINE HCL 19524602953 No Longer Active Baltazar Childers MD Activ e ROBAXIN-750 750 MG TABS Take one by mouth daily ME THOCARBAMOL 89078649300 Active Baltazar Childers MD Active TIZANIDINE HCL 4 MG TABS 1 daily as needed for muscle spasm 2011 TIZANIDINE HCL 39272884502 No Longer Active Dawna Salazar RN Active WILEXUCH ULTRA BLUE STRP Test twice a day GLUCO SE BLOOD 80666641455 Active Baltazar Childers MD Active [id number] 50-325-40 MG TABS 1 four time s a day as needed for heacache [id number] 62429649548 Active Baltazar Childers MD Active SUMATRIPTAN SUCCINATE 100 MG TABS 1 tablet by mouth at onset of migraine as needed SUMATRIPTAN SUCCINATE 04645958431 Active Baltazar bynum MD Active LORATADINE 10 MG TABS Take one by mouth daily LORATADINE 74524264927 Active Baltazar Childers MD Active FUROSEMIDE 40 MG TABS Take one by mouth daily FUROSEMIDE 56316638047 Active Baltazar Childers MD Active LISINOPRIL 20 MG TABS Take one by mouth daily at bedtime LISINOPRIL 70207353469 Active Baltazar Childers MD Active OMEPRAZOLE 20 MG CPDR Take one by mouth daily OMEPRAZOLE 54043534659 Active Baltazar Childers MD Active HYDROXYZINE HCL 25 MG TABS Take one by mouth daily HYDROXYZINE HCL 82271935050 Active Baltazar Childers MD Active GLIPIZIDE 10 MG TABS 1 tablet by mouth twice daily GLIPIZIDE 32407361192 Active Baltazar Childers MD Active ALPRAZOLAM 1 MG TABS 1 tablet by mouth daily at bedtime for restles s leg ALPRAZOLAM 96162844607 Active Baltazar Childers MD Active METFORMIN HCL 1000 MG TABS Take one by mouth twice daily METFORMIN HCL 50260032193 Active Baltazar Childers MD Active TIZANIDINE HCL 4 MG TABS 1 daily as needed for muscle spasm 2011 TIZANIDINE HCL 4 MG TABS 584173 TIZANIDINE HCL Inactiv e PHENTERMINE HCL 37.5 MG TABS Take one by mouth daily 2 PHENTERMINE HCL 37.5 MG TABS 530663 PHENTERMINE HCL Inactive CRESTOR 10 MG TABS 1 by mouth every day C RESTOR 10 MG TABS ROSUVASTATIN CALCIUM Inactive LIPITOR 20 MG TABS Take one by mouth daily in evening LIPITOR 20 MG TABS 651804 ATORVASTATIN CALCIUM Inactive DEPO-TESTOSTERONE 200 MG/ML OIL as directed 8 DEPO-TESTOSTERONE 200 MG/ML OIL 184150 TESTOSTERONE CYPIONATE Inactive NAPROXEN 500 MG TABS 1 tablet by mouth twice daily 201 07/27/22 NAPROXEN 500 MG TABS 639531 NAPROXEN Inactive GABAPENTIN 300 MG CAPS 1 po qd x 2 days, then 1 po BID x 2 d ays, then 1 po TID GABAPENTIN 300 MG CAPS 546619 GABAPENTIN Inact amie Immunizations Vaccine Administration Date Value Standard Floyd cription pneumococcal immunization administered Pneumovax 23 [CVX33] pneumococcal polysaccharide vaccine, 23 valent Seasonal influenza vaccine, injectable, containing preservative, for > 3 years old (Afluria, FluLaval, Fluzone, Fluvirin, Fluarix, Agriflu(>= 18 yo)) Fluzone (>3 yrs.) [[id number]] Influenza, seasonal, inject able Seasonal influenza vaccine, injectable, containing preservative, for > 3 years old (Afluria, FluLaval, Fluzone, Fluvirin, Fluarix, Agriflu(>= 18 yo)) Fluzone (>3 yrs.) [[id number]] Influenza, seasonal, inject able Vital Signs Date [...] C - Chemistry sodium, serum 140 mmol/L 451-366 0590/02/26 potassium, serum 5.3 mmol/L 3.5-5.2 chloride, serum [...] Panel - Chemistry sodium, serum 136 mmol/L 323-524 1644/01/06 potassium, serum 5.1 mmol/L 3.5-5.2 chloride, serum [...] mg/g mg/g{creat} 0-29 cholesterol, serum 319 mg/dL 898-410 0899/08/21 triglyceride, serum, fasting 546 mg/dL 30-200 HDL cholesterol, serum 39 mg/dL 32-96 LDL cholesterol, serum 167.00 mg/dL 5.00-130.00 hemoglobin A1C, blood, as % of total hemoglobin 7.7 % 4.3-6.0 sodium, serum 138 mmol/L 770-668 4712/08/21 potassium, serum 4.3 mmol/L 3.5-5.2 chloride, serum [...] mg/dL Encounters Code Encounter Date Provider Facility CPT-81666 Level 4 Est. Patient 14:15:19 CDT Baltazar Childers MD [facility] CPT-25515 Level 4 Est. Patient 12:20:13 CDT Baltazar Childers MD [facility] CPT-88832 Level 4 Est. Patient 14:52:45 NEW CAR SALES MANAGER Baltazar Childers MD [facility] CPT-78114 Level 4 Est. Patient 14:18:34 NEW CAR SALES MANAGER Baltazar Childers MD [facility] CPT-79533 Level 4 Est. Patient 15:18:29 CDT Baltazar Childers MD [facility] CPT-58612 Level 3 Est. Patient 12:45:34 CDT Baltazar Childers MD [facility] CPT-40738 Level 3 Est. Patient 10:10:11 CDT Baltazar Childers MD [facility] CPT-61879 Level 3 Est. Patient 14:07:50 CDT Baltazar Childers MD [facility] CPT-14448 Level 4 Est. Patient 12:26:10 NEW CAR SALES MANAGER Baltazar Childers MD [facility] CPT-87441 Level 4 Est. Patient 14:45:38 CDT Baltazar Childers MD [facility] CPT-99686 Level 4 New Patient 12:30:48 CDT Baltazar hinton MD [facility] Procedures Code Procedure Name Date Entry Date Standard Desc ription CPT-24518 Fluzone Quadrivalent Intramuscular Suspe nsion 0.5 ML 10:49:13 CDT CPT-62962 First Vx Component - Ix admi n via ID IM or jet inj without physician counseling 15:17:19 NEW CAR SALES MANAGER CPT-11601 Pneumovax 23 15:17:19 NEW CAR SALES MANAGER CPT-12264 Pneumovax 14:52:45 NEW CAR SALES MANAGER CPT-63121 Venipuncture Draw Fee 14:06:30 NEW CAR SALES MANAGER CPT-000 Give Appropriate Flu Vaccine 14:18:34 NEW CAR SALES MANAGER 2 CPT-13886 Administration single or combination vac cine inc oral 14:46:00 NEW CAR SALES MANAGER CPT-95133 Influenza split virus > age 3 14:46:00 NEW CAR SALES MANAGER CPT-OV Office Visit 19:13:16 CDT CPT-74391 Zostavax 18:41:56 CDT CPT-33639 Administration single or combination vac cine inc oral 12:56:39 CDT CPT-03700 Zoster Vaccine (Zostavax) 12:56:39 CDT 2012 CPT-23279 Venipuncture Draw Fee 10:58:57 CDT CPT-16806 Sono pelvis non OB uterus ovaries cervix 17:45:04 CDT CPT-85730 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
--- OUTSIDE RECORDS SUMMARY | 2019-10-27 13:58 | XMS REPORT | Clinical Summary ---
Author Author Admin, Elba Lance [facility] Address Unknown Phone Allergies, Adverse Reactions, [...] y atherosclerosis of unspecified type of vessel, [place] or graft OTH NONSPC ABN [...] tab every 6-8 hour s PRN HYDROCODONE-ACETAMINOPHEN 82398507499 Active Sergio Crabtree DO Active NORTRIPTYLINE HCL 50 MG CAPS 1 every night for neuropathy 4 NORTRIPTYLINE HCL 02291658299 Active Baltazar Childers MD Acti ve GABAPENTIN 300 MG CAPS 1 three times a day GABAPE NTIN 18204803263 Active Baltazar Childers MD Active GABAPENTIN 300 MG CAPS 1 po qd x 2 days, then 1 po BID x 2 d ays, then 1 po TID GABAPENTIN 83697798936 No Longer Active Baltazar silverman MD Active TRAMADOL HCL 50 MG TABS 1 twice a day as needed for pain TRAMADOL HCL 29497898507 Active Baltazar Childers MD Active NAPROXEN 500 MG TABS 1 tablet by mouth twice daily NAPROXEN 53086695706 No Longer Active Baltazar Childers MD Active PROAIR HFA 108 (90 BASE) MCG/ACT AERS 2 puffs four times a d ay as needed ALBUTEROL SULFATE 51104387628 Active Baltazar Childers MD Active DEPO-TESTOSTERONE 200 MG/ML OIL as directed RUFINO TOSTERONE CYPIONATE 82310868543 No Longer Active Baltazar Childers MD Active LIPITOR 20 MG TABS Take one by mouth daily in evening ATORVASTATIN CALCIUM 16293603325 No Longer Active Baltazar Childers MD Activ e CRESTOR 10 MG TABS 1 by mouth every day R OSUVASTATIN CALCIUM 21429257658 No Longer Active Baltazar Childers MD Activ e PHENTERMINE HCL 37.5 MG TABS Take one by mouth daily 2 PHENTERMINE HCL 11882982577 No Longer Active Baltazar Childers MD Activ e ROBAXIN-750 750 MG TABS Take one by mouth daily ME THOCARBAMOL 67951364134 Active Baltazar Childers MD Active TIZANIDINE HCL 4 MG TABS 1 daily as needed for muscle spasm 2011 TIZANIDINE HCL 52527264697 No Longer Active Dawna Salazar RN Active ONETOUCH ULTRA BLUE STRP Test twice a day GLUCO SE BLOOD 80241759832 Active Baltazar Childers MD Active [id number] 50-325-40 MG TABS 1 four time s a day as needed for heacache [id number] 24626509496 Active Baltazar Childers MD Active SUMATRIPTAN SUCCINATE 100 MG TABS 1 tablet by mouth at onset of migraine as needed SUMATRIPTAN SUCCINATE 15330665947 Active Shireen Miller APRN Active LORATADINE 10 MG TABS Take one by mouth daily LORATADINE 72334274194 Active Brad Hughes Active FUROSEMIDE 40 MG TABS Take one by mouth daily FUROSEMIDE 89172686292 Active Shireen Miller APRN Active LISINOPRIL 20 MG TABS Take one by mouth daily at bedtime LISINOPRIL 96117324226 Active Shireen Miller APRN Active OMEPRAZOLE 20 MG CPDR Take one by mouth daily OMEPRAZOLE 12327881004 Active Shireen Miller APRN Active HYDROXYZINE HCL 25 MG TABS Take one by mouth daily HYDROXYZINE HCL 42733658603 Active Shireen Miller APRN Active GLIPIZIDE 10 MG TABS 1 tablet by mouth twice daily GLIPIZIDE 47802391020 Active Shireen Miller APRN Active ALPRAZOLAM 1 MG TABS 1 tablet by mouth daily at bedtime for restles s leg ALPRAZOLAM 00769542126 Active Baltazar Childers MD Active METFORMIN HCL 1000 MG TABS Take one by mouth twice daily METFORMIN HCL 71746122125 Active Shireen Miller APRN Active TIZANIDINE HCL 4 MG TABS 1 daily as needed for muscle spasm 2011 TIZANIDINE HCL 4 MG TABS 139476 TIZANIDINE HCL Inactiv e PHENTERMINE HCL 37.5 MG TABS Take one by mouth daily 2 PHENTERMINE HCL 37.5 MG TABS 275291 PHENTERMINE HCL Inactive CRESTOR 10 MG TABS 1 by mouth every day C RESTOR 10 MG TABS ROSUVASTATIN CALCIUM Inactive LIPITOR 20 MG TABS Take one by mouth daily in evening LIPITOR 20 MG TABS 713485 ATORVASTATIN CALCIUM Inactive DEPO-TESTOSTERONE 200 MG/ML OIL as directed 8 DEPO-TESTOSTERONE 200 MG/ML OIL 183142 TESTOSTERONE CYPIONATE Inactive NAPROXEN 500 MG TABS 1 tablet by mouth twice daily 201 07/27/22 NAPROXEN 500 MG TABS 701115 NAPROXEN Inactive GABAPENTIN 300 MG CAPS 1 po qd x 2 days, then 1 po BID x 2 d ays, then 1 po TID GABAPENTIN 300 MG CAPS 510487 GABAPENTIN Inact amie Immunizations Vaccine Administration Date Value Standard Floyd cription pneumococcal immunization administered Pneumovax 23 [CVX33] pneumococcal polysaccharide vaccine, 23 valent Seasonal influenza vaccine, injectable, containing preservative, for > 3 years old (Afluria, FluLaval, Fluzone, Fluvirin, Fluarix, Agriflu(>= 18 yo)) Fluzone (>3 yrs.) [[id number]] Influenza, seasonal, inject able Seasonal influenza vaccine, injectable, containing preservative, for > 3 years old (Afluria, FluLaval, Fluzone, Fluvirin, Fluarix, Agriflu(>= 18 yo)) Fluzone (>3 yrs.) [[id number]] Influenza, seasonal, inject able Vital Signs Date [...] C - Chemistry sodium, serum 140 mmol/L 812-206 8363/02/26 potassium, serum 5.3 mmol/L 3.5-5.2 chloride, serum [...] 0.39 mg/dL 0.00-1.00 cholesterol, serum 345 mg/dL 907-231 7186/08/26 triglyceride, serum, fasting 635 mg/dL 30-200 HDL [...] Panel - Chemistry sodium, serum 136 mmol/L 175-923 2585/01/06 potassium, serum 5.1 mmol/L 3.5-5.2 chloride, serum [...] Panel - Chemistry sodium, serum 139 mmol/L 879-240 9056/08/26 potassium, serum 5.8 mmol/L 3.5-5.2 chloride, serum [...] mg/dL Encounters Code Encounter Date Provider Facility CPT-82887 Level 4 Est. Patient 14:52:45 DONOR RECRUITMENT MANAGER Baltazar Childers MD [facility] CPT-16164 Level 4 Est. Patient 14:18:34 DONOR RECRUITMENT MANAGER Baltazar Childers MD [facility] CPT-93518 Level 4 Est. Patient 15:18:29 CDT Baltazar Childers MD [facility] CPT-32370 Level 3 Est. Patient 12:45:34 CDT Baltazar Childers MD [facility] CPT-24808 Level 3 Est. Patient 10:10:11 CDT Baltazar Childers MD [facility] CPT-02365 Level 3 Est. Patient 14:07:50 CDT Baltazar Childers MD [facility] CPT-25709 Level 4 Est. Patient 12:26:10 DONOR RECRUITMENT MANAGER Baltazar Childers MD [facility] CPT-38719 Level 4 Est. Patient 14:45:38 CDT Baltazar Childers MD [facility] CPT-13699 Level 4 New Patient 12:30:48 CDT Baltazar hinton MD [facility] Procedures Code Procedure Name Date Entry Date Standard Desc ription CPT-70624 First Vx Component - Ix admi n via ID IM or jet inj without physician counseling 15:17:19 [employer]OR RECRUITMENT MANAGER CPT-96732 Pneumovax 23 15:17:19 DONOR RECRUITMENT MANAGER CPT-01187 Pneumovax 14:52:45 DONOR RECRUITMENT MANAGER CPT-04756 Venipuncture Draw Fee 14:06:30 DONOR RECRUITMENT MANAGER CPT-000 Give Appropriate Flu Vaccine 14:18:34 DONOR RECRUITMENT MANAGER 2 CPT-58874 Administration single or combination vac cine inc oral 14:46:00 DONOR RECRUITMENT MANAGER CPT-36038 Influenza split virus > age 3 14:46:00 DONOR RECRUITMENT MANAGER CPT-OV Office Visit 19:13:16 CDT CPT-32948 Zostavax 18:41:56 CDT CPT-14121 Administration single or combination vac cine inc oral 12:56:39 CDT CPT-68333 Zoster Vaccine (Zostavax) 12:56:39 CDT 2012 CPT-58705 Venipuncture Draw Fee 10:58:57 CDT CPT-03722 Sono pelvis non OB uterus ovaries cervix 17:45:04 CDT CPT-96098 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
--- OUTSIDE RECORDS SUMMARY | 2019-10-27 13:58 | XMS REPORT | Clinical Summary ---
Author Author Admin, Elba Lance [facility] Address Unknown Phone Allergies, Adverse Reactions, [...] y atherosclerosis of unspecified type of vessel, [place] or graft OTH NONSPC ABN FINDNG RAD&OTH [...] tab every 6-8 hour s PRN HYDROCODONE-ACETAMINOPHEN 76051757822 Active Sergio Crabtree DO Active NORTRIPTYLINE HCL 50 MG CAPS 1 every night for neuropathy 4 NORTRIPTYLINE HCL 23786559404 Active Baltazar Childers MD Acti ve GABAPENTIN 300 MG CAPS 1 three times a day GABAPE NTIN 69133033211 Active Baltazar Childers MD Active GABAPENTIN 300 MG CAPS 1 po qd x 2 days, then 1 po BID x 2 d ays, then 1 po TID GABAPENTIN 27044050449 No Longer Active Baltazar silverman MD Active TRAMADOL HCL 50 MG TABS 1 twice a day as needed for pain TRAMADOL HCL 93176973383 Active Baltazar Childers MD Active NAPROXEN 500 MG TABS 1 tablet by mouth twice daily NAPROXEN 07326578535 No Longer Active Baltazar Childers MD Active PROAIR HFA 108 (90 BASE) MCG/ACT AERS 2 puffs four times a d ay as needed ALBUTEROL SULFATE 99273293809 Active Baltazar Childers MD Active DEPO-TESTOSTERONE 200 MG/ML OIL as directed RUFINO TOSTERONE CYPIONATE 09773702506 No Longer Active Baltazar Childers MD Active LIPITOR 20 MG TABS Take one by mouth daily in evening ATORVASTATIN CALCIUM 51729997122 No Longer Active Baltazar Childers MD Activ e CRESTOR 10 MG TABS 1 by mouth every day R OSUVASTATIN CALCIUM 69133178214 No Longer Active Baltazar Childers MD Activ e PHENTERMINE HCL 37.5 MG TABS Take one by mouth daily 2 PHENTERMINE HCL 46899963140 No Longer Active Baltazar Childers MD Activ e ROBAXIN-750 750 MG TABS Take one by mouth daily ME THOCARBAMOL 84764360596 Active Baltazar Childers MD Active TIZANIDINE HCL 4 MG TABS 1 daily as needed for muscle spasm 2011 TIZANIDINE HCL 27387367329 No Longer Active Dawna Salazar RN Active ONETOUCH ULTRA BLUE STRP Test twice a day GLUCO SE BLOOD 84318074878 Active Baltazar Childers MD Active [id number] 50-325-40 MG TABS 1 four time s a day as needed for heacache [id number] 84893485046 Active Baltazar Childers MD Active SUMATRIPTAN SUCCINATE 100 MG TABS 1 tablet by mouth at onset of migraine as needed SUMATRIPTAN SUCCINATE 54088627220 Active Shireen Miller APRN Active LORATADINE 10 MG TABS Take one by mouth daily LORATADINE 84249511881 Active Brad Hughes Active FUROSEMIDE 40 MG TABS Take one by mouth daily FUROSEMIDE 43952642130 Active Shireen Miller APRN Active LISINOPRIL 20 MG TABS Take one by mouth daily at bedtime LISINOPRIL 61377210516 Active Shireen Miller APRN Active OMEPRAZOLE 20 MG CPDR Take one by mouth daily OMEPRAZOLE 90346094133 Active Shireen Miller APRN Active HYDROXYZINE HCL 25 MG TABS Take one by mouth daily HYDROXYZINE HCL 30260148633 Active Shireen Miller APRN Active GLIPIZIDE 10 MG TABS 1 tablet by mouth twice daily GLIPIZIDE 05735896287 Active Shireen Miller APRN Active ALPRAZOLAM 1 MG TABS 1 tablet by mouth daily at bedtime for restles s leg ALPRAZOLAM 84733372760 Active Baltazar Childers MD Active METFORMIN HCL 1000 MG TABS Take one by mouth twice daily METFORMIN HCL 47638761747 Active Shireen Miller APRN Active TIZANIDINE HCL 4 MG TABS 1 daily as needed for muscle spasm 2011 TIZANIDINE HCL 4 MG TABS 933730 TIZANIDINE HCL Inactiv e PHENTERMINE HCL 37.5 MG TABS Take one by mouth daily 2 PHENTERMINE HCL 37.5 MG TABS 106726 PHENTERMINE HCL Inactive CRESTOR 10 MG TABS 1 by mouth every day C RESTOR 10 MG TABS ROSUVASTATIN CALCIUM Inactive LIPITOR 20 MG TABS Take one by mouth daily in evening LIPITOR 20 MG TABS 388080 ATORVASTATIN CALCIUM Inactive DEPO-TESTOSTERONE 200 MG/ML OIL as directed 8 DEPO-TESTOSTERONE 200 MG/ML OIL 249418 TESTOSTERONE CYPIONATE Inactive NAPROXEN 500 MG TABS 1 tablet by mouth twice daily 201 07/27/22 NAPROXEN 500 MG TABS 466872 NAPROXEN Inactive GABAPENTIN 300 MG CAPS 1 po qd x 2 days, then 1 po BID x 2 d ays, then 1 po TID GABAPENTIN 300 MG CAPS 224788 GABAPENTIN Inact amie Immunizations Vaccine Administration Date Value Standard Floyd cription pneumococcal immunization administered Pneumovax 23 [CVX33] pneumococcal polysaccharide vaccine, 23 valent Seasonal influenza vaccine, injectable, containing preservative, for > 3 years old (Afluria, FluLaval, Fluzone, Fluvirin, Fluarix, Agriflu(>= 18 yo)) Fluzone (>3 yrs.) [[id number]] Influenza, seasonal, inject able Seasonal influenza vaccine, injectable, containing preservative, for > 3 years old (Afluria, FluLaval, Fluzone, Fluvirin, Fluarix, Agriflu(>= 18 yo)) Fluzone (>3 yrs.) [[id number]] Influenza, seasonal, inject able Vital Signs Date [...] C - Chemistry sodium, serum 140 mmol/L 982-508 1550/02/26 potassium, serum 5.3 mmol/L 3.5-5.2 chloride, serum [...] 0.39 mg/dL 0.00-1.00 cholesterol, serum 345 mg/dL 369-796 7694/08/26 triglyceride, serum, fasting 635 mg/dL 30-200 HDL [...] Panel - Chemistry sodium, serum 136 mmol/L 041-967 7285/01/06 potassium, serum 5.1 mmol/L 3.5-5.2 chloride, serum [...] Panel - Chemistry sodium, serum 139 mmol/L 394-018 8037/08/26 potassium, serum 5.8 mmol/L 3.5-5.2 chloride, serum [...] mg/dL Encounters Code Encounter Date Provider Facility CPT-04455 Level 4 Est. Patient 14:52:45 [employer]OR INSPECTION MECH[employer]IC Baltazar Childers MD [facility] CPT-09415 Level 4 Est. Patient 14:18:34 [employer] INSPECTION MECH[employer]IC Baltazar Childers MD [facility] CPT-28863 Level 4 Est. Patient 15:18:29 CDT Baltazar Childers MD [facility] CPT-73298 Level 3 Est. Patient 12:45:34 CDT Baltazar Childers MD [facility] CPT-36029 Level 3 Est. Patient 10:10:11 CDT Baltazar Childers MD [facility] CPT-94515 Level 3 Est. Patient 14:07:50 CDT Baltazar Childers MD [facility] CPT-08409 Level 4 Est. Patient 12:26:10 [employer] INSPECTION MECH[employer]IC Baltazar Childers MD [facility] CPT-19152 Level 4 Est. Patient 14:45:38 CDT Baltazar Childers MD [facility] CPT-38859 Level 4 New Patient 12:30:48 CDT Baltazar hinton MD [facility] Procedures Code Procedure Name Date Entry Date Standard Desc ription CPT-88895 First Vx Component - Ix admi n via ID IM or jet inj without physician counseling 15:17:19 [employer]OR INSPECTION MECH[employer]IC CPT-53638 Pneumovax 23 15:17:19 [employer]OR INSPECTION MECH[employer]IC CPT-78195 Pneumovax 14:52:45 [employer]OR INSPECTION MECH[employer]IC CPT-58696 Venipuncture Draw Fee 14:06:30 [employer]OR INSPECTION MECH[employer]IC CPT-000 Give Appropriate Flu Vaccine 14:18:34 [employer]OR INSPECTION MECHANIC 2 CPT-63531 Administration single or combination vac cine inc oral 14:46:00 [employer] INSPECTION MECH[employer]IC CPT-64804 Influenza split virus > age 3 14:46:00 [employer]OR INSPECTION MECH[employer]IC CPT-OV Office Visit 19:13:16 CDT CPT-66353 Zostavax 18:41:56 CDT CPT-72071 Administration single or combination vac cine inc oral 12:56:39 CDT CPT-12500 Zoster Vaccine (Zostavax) 12:56:39 CDT 2012 CPT-19765 Venipuncture Draw Fee 10:58:57 CDT CPT-50757 Sono pelvis non OB uterus ovaries cervix 17:45:04 CDT CPT-69142 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
--- OUTSIDE RECORDS SUMMARY | 2019-10-27 13:59 | XMS REPORT | Clinical Summary ---
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 Benign neoplasm of colon PERIPHERAL NEUROPATHY 356.9 [...] y atherosclerosis of unspecified type of vessel, solomon [...] MISC Test twice a day LANCET S 79009580067 Active Baltazar Childers MD Active TRUEDRAW LANCING DEVICE MISC Test twice a day L ANCET DEVICES 88086774700 Active Baltazar Childers MD Active TRUETRACK TEST STRP Test twice a day GLUCOSE BLOO D 51562993576 Active Baltazar Childers MD Active TRUETRACK BLOOD GLUCOSE W/DEVICE KIT Test twice a day BLOOD GLUCOSE MONITORING SUPPL 25441052090 Active Bella Suarez SLIP COVER SEAMSTRESS Active HYDROCODONE-ACETAMINOPHEN 7.5-325 MG TABS Take 1 tab every 6-8 hour s PRN HYDROCODONE-ACETAMINOPHEN 36839689622 Active Baltazar Childers MD Active NORTRIPTYLINE HCL 50 MG CAPS 1 every night for neuropathy 4 NORTRIPTYLINE HCL 56203238641 Active Baltazar Childers MD Acti ve GABAPENTIN 300 MG CAPS 1 three times a day GABAPE NTIN 17651772763 Active Baltazar Childers MD Active GABAPENTIN 300 MG CAPS 1 po qd x 2 days, then 1 po BID x 2 d ays, then 1 po TID GABAPENTIN 60893869019 No Longer Active Baltazar silverman MD Active TRAMADOL HCL 50 MG TABS 1 twice a day as needed for pain TRAMADOL HCL 10468011899 Active Baltazar Childers MD Active NAPROXEN 500 MG TABS 1 tablet by mouth twice daily NAPROXEN 14791575254 No Longer Active Baltazar Childers MD Active PROAIR HFA 108 (90 BASE) MCG/ACT AERS 2 puffs four times a d ay as needed ALBUTEROL SULFATE 29035102556 Active Baltazar Childers MD Active DEPO-TESTOSTERONE 200 MG/ML OIL as directed RUFINO TOSTERONE CYPIONATE 94951686376 No Longer Active Baltazar Childers MD Active LIPITOR 20 MG TABS Take one by mouth daily in evening ATORVASTATIN CALCIUM 92571588358 No Longer Active Baltazar Childers MD Activ e CRESTOR 10 MG TABS 1 by mouth every day R OSUVASTATIN CALCIUM 94508427614 No Longer Active Baltazar Childers MD Activ e PHENTERMINE HCL 37.5 MG TABS Take one by mouth daily 2 PHENTERMINE HCL 51277047673 No Longer Active Baltazar Childers MD Activ e ROBAXIN-750 750 MG TABS Take one by mouth daily ME THOCARBAMOL 50097485756 Active Baltazar Childers MD Active TIZANIDINE HCL 4 MG TABS 1 daily as needed for muscle spasm 2011 TIZANIDINE HCL 15952449074 No Longer Active Dawna Salazar RN Active Zhou HeiyaUCH ULTRA BLUE STRP Test twice a day GLUCO SE BLOOD 05207811505 Active Baltazar Childers MD Active [id number]-ROUI-JYTEOUIH 50-325-40 MG TABS 1 four time s a day as needed for heacache AXEOLYAFCJ-[id number] 28508527176 Active Bella Suarez APRN Active SUMATRIPTAN SUCCINATE 100 MG TABS 1 tablet by mouth at onset of migraine as needed SUMATRIPTAN SUCCINATE 13510678613 Active Baltazar barron MD Active LORATADINE 10 MG TABS Take one by mouth daily LORATADINE 34675324491 Active Baltazar Childers MD Active FUROSEMIDE 40 MG TABS Take one by mouth daily FUROSEMIDE 12804101206 Active Baltazar Childers MD Active LISINOPRIL 20 MG TABS Take one by mouth daily at bedtime LISINOPRIL 58244084932 Active Baltazar Childers MD Active OMEPRAZOLE 20 MG CPDR Take one by mouth daily OMEPRAZOLE 76505905530 Active Baltazar Childers MD Active HYDROXYZINE HCL 25 MG TABS Take one by mouth daily HYDROXYZINE HCL 90330464281 Active Baltazar Childers MD Active GLIPIZIDE 10 MG TABS 1 tablet by mouth twice daily GLIPIZIDE 85814339055 Active Baltazar Childers MD Active ALPRAZOLAM 1 MG TABS 1 tablet by mouth daily at bedtime for restles s leg ALPRAZOLAM 36860279528 Active Baltazar Childers MD Active METFORMIN HCL 1000 MG TABS Take one by mouth twice daily METFORMIN HCL 54432168605 Active Baltazar Childers MD Active TIZANIDINE HCL 4 MG TABS 1 daily as needed for muscle spasm 2011 TIZANIDINE HCL 4 MG TABS 718614 TIZANIDINE HCL Inactiv e PHENTERMINE HCL 37.5 MG TABS Take one by mouth daily 2 PHENTERMINE HCL 37.5 MG TABS 164239 PHENTERMINE HCL Inactive CRESTOR 10 MG TABS 1 by mouth every day C RESTOR 10 MG TABS ROSUVASTATIN CALCIUM Inactive LIPITOR 20 MG TABS Take one by mouth daily in evening LIPITOR 20 MG TABS 314387 ATORVASTATIN CALCIUM Inactive DEPO-TESTOSTERONE 200 MG/ML OIL as directed 8 DEPO-TESTOSTERONE 200 MG/ML OIL 267942 TESTOSTERONE CYPIONATE Inactive NAPROXEN 500 MG TABS 1 tablet by mouth twice daily 201 07/27/22 NAPROXEN 500 MG TABS 686110 NAPROXEN Inactive GABAPENTIN 300 MG CAPS 1 po qd x 2 days, then 1 po BID x 2 d ays, then 1 po TID GABAPENTIN 300 MG CAPS 214690 GABAPENTIN Inact amie Immunizations Vaccine Administration Date Value Standard Floyd cription pneumococcal immunization administered Pneumovax 23 [CVX33] pneumococcal polysaccharide vaccine, 23 valent Seasonal influenza vaccine, injectable, containing preservative, for > 3 years old (Afluria, FluLaval, Fluzone, Fluvirin, Fluarix, Agriflu(>= 18 yo)) Fluzone (>3 yrs.) [[id number]] Influenza, seasonal, inject able Seasonal influenza vaccine, injectable, containing preservative, for > 3 years old (Afluria, FluLaval, Fluzone, Fluvirin, Fluarix, Agriflu(>= 18 yo)) Fluzone (>3 yrs.) [MHF138] Influenza, seasonal, inject able Vital Signs Date [...] C - Chemistry sodium, serum 140 mmol/L 081-008 5163/02/26 potassium, serum 5.3 mmol/L 3.5-5.2 chloride, serum [...] Panel - Chemistry sodium, serum 136 mmol/L 686-974 2034/01/06 potassium, serum 5.1 mmol/L 3.5-5.2 chloride, serum [...] mg/g mg/g{creat} 0-29 cholesterol, serum 319 mg/dL 653-750 5640/08/21 triglyceride, serum, fasting 546 mg/dL 30-200 HDL cholesterol, serum 39 mg/dL 32-96 LDL cholesterol, serum 167.00 mg/dL 5.00-130.00 hemoglobin A1C, blood, as % of total hemoglobin 7.7 % 4.3-6.0 sodium, serum 138 mmol/L 277-415 2822/08/21 potassium, serum 4.3 mmol/L 3.5-5.2 chloride, serum [...] mg/dL Encounters Code Encounter Date Provider Facility CPT-90094 Level 4 Est. Patient 14:15:19 CDT Baltazar Childers MD [facility] CPT-18078 Level 4 Est. Patient 12:20:13 CDT Baltazar Childers MD [facility] CPT-04807 Level 4 Est. Patient 14:52:45 STRATEGY LEAD Baltazar Childers MD [facility] CPT-12843 Level 4 Est. Patient 14:18:34 STRATEGY LEAD Baltazar Childers MD [facility] CPT-63939 Level 4 Est. Patient 15:18:29 CDT Baltazar Childers MD [facility] CPT-35664 Level 3 Est. Patient 12:45:34 CDT Baltazar Childers MD [facility] CPT-16089 Level 3 Est. Patient 10:10:11 CDT Baltazar Childers MD [facility] CPT-25563 Level 3 Est. Patient 14:07:50 CDT Baltazar Childers MD [facility] CPT-30542 Level 4 Est. Patient 12:26:10 STRATEGY LEAD Baltazar Childers MD [facility] CPT-53854 Level 4 Est. Patient 14:45:38 CDT Baltazar Childers MD [facility] CPT-82867 Level 4 New Patient 12:30:48 CDT Baltazar hinton MD [facility] Procedures Code Procedure Name Date Entry Date Standard Desc ription CPT-88485 Fluzone Quadrivalent Intramuscular Suspe nsion 0.5 ML 10:49:13 CDT CPT-89128 First Vx Component - Ix admi n via ID IM or jet inj without physician counseling 15:17:19 STRATEGY LEAD CPT-97787 Pneumovax 15:17:19 STRATEGY LEAD CPT-33304 Pneumovax 14:52:45 STRATEGY LEAD CPT-37550 Venipuncture Draw Fee 14:06:30 STRATEGY LEAD CPT-000 Give Appropriate Flu Vaccine 14:18:34 STRATEGY LEAD 2 CPT-39131 Administration single or combination vac cine inc oral 14:46:00 STRATEGY LEAD CPT-91721 Influenza split virus > age 3 14:46:00 STRATEGY LEAD CPT-OV Office Visit 19:13:16 CDT CPT-12323 Zostavax 18:41:56 CDT CPT-59482 Administration single or combination vac cine inc oral 12:56:39 CDT CPT-07006 Zoster Vaccine (Zostavax) 12:56:39 CDT 2012 CPT-88252 Venipuncture Draw Fee 10:58:57 CDT CPT-18448 Sono pelvis non OB uterus ovaries cervix 17:45:04 CDT CPT-46696 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
--- OUTSIDE RECORDS SUMMARY | 2019-10-27 13:59 | XMS REPORT | Clinical Summary ---
Author Author Admin, Elba Lance [facility] Address Unknown Phone Unavailable Allergies, [...] libido COLON POLYPS 211.3 Resolved Lolis Thomas [employer] Benign neoplasm of colon PERIPHERAL NEUROPATHY [...] y atherosclerosis of unspecified type of vessel, [place] or graft OTH NONSPC ABN FINDNG RAD&OTH [...] tab every 6-8 hour s PRN HYDROCODONE-ACETAMINOPHEN 54122303991 Active Baltazar Childers MD Active NORTRIPTYLINE HCL 50 MG CAPS 1 every night for neuropathy 4 NORTRIPTYLINE HCL 37154350530 Active Baltazar Childers MD Acti ve GABAPENTIN 300 MG CAPS 1 three times a day GABAPE NTIN 77993519318 Active Baltazar Childers MD Active GABAPENTIN 300 MG CAPS 1 po qd x 2 days, then 1 po BID x 2 d ays, then 1 po TID GABAPENTIN 82893557008 No Longer Active Baltazar silverman MD Active TRAMADOL HCL 50 MG TABS 1 twice a day as needed for pain TRAMADOL HCL 43383747007 Active Baltazar Childers MD Active NAPROXEN 500 MG TABS 1 tablet by mouth twice daily NAPROXEN 53556982229 No Longer Active Baltazar Childers MD Active PROAIR HFA 108 (90 BASE) MCG/ACT AERS 2 puffs four times a d ay as needed ALBUTEROL SULFATE 70721812037 Active Baltazar Childers MD Active DEPO-TESTOSTERONE 200 MG/ML OIL as directed RUFINO TOSTERONE CYPIONATE 62804507951 No Longer Active Baltazar Childers MD Active LIPITOR 20 MG TABS Take one by mouth daily in evening ATORVASTATIN CALCIUM 88083878849 No Longer Active Baltazar Childers MD Activ e CRESTOR 10 MG TABS 1 by mouth every day R OSUVASTATIN CALCIUM 39462077155 No Longer Active Baltazar Childers MD Activ e PHENTERMINE HCL 37.5 MG TABS Take one by mouth daily 2 PHENTERMINE HCL 28017381187 No Longer Active Baltazar Childers MD Activ e ROBAXIN-750 750 MG TABS Take one by mouth daily ME THOCARBAMOL 17577860067 Active Baltazar Childers MD Active TIZANIDINE HCL 4 MG TABS 1 daily as needed for muscle spasm 2011 TIZANIDINE HCL 70053629566 No Longer Active Dawna Salazar RN Active ONETOUCH ULTRA BLUE STRP Test twice a day GLUCO SE BLOOD 41388467477 Active Baltazar Childers MD Active [id number] 50-325-40 MG TABS 1 four time s a day as needed for heacache [id number] 26479257145 Active Baltazar Childers MD Active SUMATRIPTAN SUCCINATE 100 MG TABS 1 tablet by mouth at onset of migraine as needed SUMATRIPTAN SUCCINATE 81428187885 Active Baltazar bynum MD Active LORATADINE 10 MG TABS Take one by mouth daily LORATADINE 96492822939 Active Baltazar Childers MD Active FUROSEMIDE 40 MG TABS Take one by mouth daily FUROSEMIDE 63414623601 Active Baltazar Childers MD Active LISINOPRIL 20 MG TABS Take one by mouth daily at bedtime LISINOPRIL 26209455239 Active Baltazar Childers MD Active OMEPRAZOLE 20 MG CPDR Take one by mouth daily OMEPRAZOLE 14681549568 Active Baltazar Childers MD Active HYDROXYZINE HCL 25 MG TABS Take one by mouth daily HYDROXYZINE HCL 74211028292 Active Baltazar Childers MD Active GLIPIZIDE 10 MG TABS 1 tablet by mouth twice daily GLIPIZIDE 99749690833 Active Baltazar Childers MD Active ALPRAZOLAM 1 MG TABS 1 tablet by mouth daily at bedtime for restles s leg ALPRAZOLAM 93425354615 Active Baltazar Childers MD Active METFORMIN HCL 1000 MG TABS Take one by mouth twice daily METFORMIN HCL 04099820152 Active Baltazar Childers MD Active TIZANIDINE HCL 4 MG TABS 1 daily as needed for muscle spasm 2011 TIZANIDINE HCL 4 MG TABS 923871 TIZANIDINE HCL Inactiv e PHENTERMINE HCL 37.5 MG TABS Take one by mouth daily 2 PHENTERMINE HCL 37.5 MG TABS 951727 PHENTERMINE HCL Inactive CRESTOR 10 MG TABS 1 by mouth every day C RESTOR 10 MG TABS ROSUVASTATIN CALCIUM Inactive LIPITOR 20 MG TABS Take one by mouth daily in evening LIPITOR 20 MG TABS 754633 ATORVASTATIN CALCIUM Inactive DEPO-TESTOSTERONE 200 MG/ML OIL as directed 8 DEPO-TESTOSTERONE 200 MG/ML OIL 823830 TESTOSTERONE CYPIONATE Inactive NAPROXEN 500 MG TABS 1 tablet by mouth twice daily 201 07/27/22 NAPROXEN 500 MG TABS 028424 NAPROXEN Inactive GABAPENTIN 300 MG CAPS 1 po qd x 2 days, then 1 po BID x 2 d ays, then 1 po TID GABAPENTIN 300 MG CAPS 098055 GABAPENTIN Inact amie Immunizations Vaccine Administration Date Value Standard Floyd cription pneumococcal immunization administered Pneumovax 23 [CVX33] pneumococcal polysaccharide vaccine, 23 valent Seasonal influenza vaccine, injectable, containing preservative, for > 3 years old (Afluria, FluLaval, Fluzone, Fluvirin, Fluarix, Agriflu(>= 18 yo)) Fluzone (>3 yrs.) [[id number]] Influenza, seasonal, inject able Seasonal influenza vaccine, injectable, containing preservative, for > 3 years old (Afluria, FluLaval, Fluzone, Fluvirin, Fluarix, Agriflu(>= 18 yo)) Fluzone (>3 yrs.) [[id number]] Influenza, seasonal, inject able Vital Signs Date [...] C - Chemistry sodium, serum 140 mmol/L 594-449 0783/02/26 potassium, serum 5.3 mmol/L 3.5-5.2 chloride, serum [...] 0.39 mg/dL 0.00-1.00 cholesterol, serum 345 mg/dL 965-477 2930/08/26 triglyceride, serum, fasting 635 mg/dL 30-200 HDL [...] Panel - Chemistry sodium, serum 136 mmol/L 058-809 2139/01/06 potassium, serum 5.1 mmol/L 3.5-5.2 chloride, serum [...] mg/g mg/g{creat} 0-29 cholesterol, serum 319 mg/dL 286-583 6992/08/21 triglyceride, serum, fasting 546 mg/dL 30-200 HDL cholesterol, serum 39 mg/dL 32-96 LDL cholesterol, serum 167.00 mg/dL 5.00-130.00 hemoglobin A1C, blood, as % of total hemoglobin 7.7 % 4.3-6.0 sodium, serum 138 mmol/L 882-224 2356/08/21 potassium, serum 4.3 mmol/L 3.5-5.2 chloride, serum [...] Panel - Chemistry sodium, serum 139 mmol/L 587-123 8098/08/26 potassium, serum 5.8 mmol/L 3.5-5.2 chloride, serum [...] mg/dL Encounters Code Encounter Date Provider Facility CPT-47822 Level 4 Est. Patient 12:20:13 CDT Baltazar Childers MD [facility] CPT-14407 Level 4 Est. Patient 14:52:45 GOLF SUPERINTENDENT Baltazar Childers MD [facility] CPT-82465 Level 4 Est. Patient 14:18:34 GOLF SUPERINTENDENT Baltazar Childers MD [facility] CPT-28662 Level 4 Est. Patient 15:18:29 CDT Baltazar Childers MD [facility] CPT-01063 Level 3 Est. Patient 12:45:34 CDT Baltazar Childers MD [facility] CPT-53954 Level 3 Est. Patient 10:10:11 CDT Baltazar Childers MD [facility] CPT-84163 Level 3 Est. Patient 14:07:50 CDT Baltazar Childers MD [facility] CPT-05828 Level 4 Est. Patient 12:26:10 GOLF SUPERINTENDENT Baltazar Childers MD [facility] CPT-89992 Level 4 Est. Patient 14:45:38 CDT Baltazar Childers MD [facility] CPT-64356 Level 4 New Patient 12:30:48 CDT Baltazar hinton MD [facility] Procedures Code Procedure Name Date Entry Date Standard Desc ription CPT-60465 First Vx Component - Ix admi n via ID IM or jet inj without physician counseling 15:17:19 GOLF SUPERINTENDENT CPT-73237 Pneumovax 15:17:19 GOLF SUPERINTENDENT CPT-51813 Pneumovax 14:52:45 GOLF SUPERINTENDENT CPT-28316 Venipuncture Draw Fee 14:06:30 GOLF SUPERINTENDENT CPT-000 Give Appropriate Flu Vaccine 14:18:34 GOLF SUPERINTENDENT 2 CPT-37406 Administration single or combination vac cine inc oral 14:46:00 GOLF SUPERINTENDENT CPT-01909 Influenza split virus > age 3 14:46:00 GOLF SUPERINTENDENT CPT-OV Office Visit 19:13:16 CDT CPT-79893 Zostavax 18:41:56 CDT CPT-79142 Administration single or combination vac cine inc oral 12:56:39 CDT CPT-39967 Zoster Vaccine (Zostavax) 12:56:39 CDT 2012 CPT-03681 Venipuncture Draw Fee 10:58:57 CDT CPT-66247 Sono pelvis non OB uterus ovaries cervix 17:45:04 CDT CPT-80169 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
--- OUTSIDE RECORDS SUMMARY | 2019-10-27 13:59 | XMS REPORT | Clinical Summary ---
Author Author Admin, Elba Lance [facility] Address Unknown Phone Unavailable Allergies, Adverse [...] libido COLON POLYPS 211.3 Resolved Lolis Thomas [employer] Benign neoplasm of colon PERIPHERAL NEUROPATHY [...] y atherosclerosis of unspecified type of vessel, kletsel [...] tab every 6-8 hour s PRN HYDROCODONE-ACETAMINOPHEN 31210008197 Active Baltazar Childers MD Active NORTRIPTYLINE HCL 50 MG CAPS 1 every night for neuropathy 4 NORTRIPTYLINE HCL 28257467170 Active Baltazar Childers MD Acti ve GABAPENTIN 300 MG CAPS 1 three times a day GABAPE NTIN 69033770051 Active Baltazar Childers MD Active GABAPENTIN 300 MG CAPS 1 po qd x 2 days, then 1 po BID x 2 d ays, then 1 po TID GABAPENTIN 01876666735 No Longer Active Baltazar silverman MD Active TRAMADOL HCL 50 MG TABS 1 twice a day as needed for pain TRAMADOL HCL 36535507830 Active Baltazar Childers MD Active NAPROXEN 500 MG TABS 1 tablet by mouth twice daily NAPROXEN 35546031750 No Longer Active Baltazar Childers MD Active PROAIR HFA 108 (90 BASE) MCG/ACT AERS 2 puffs four times a d ay as needed ALBUTEROL SULFATE 21472509096 Active Baltazar Childers MD Active DEPO-TESTOSTERONE 200 MG/ML OIL as directed RUFINO TOSTERONE CYPIONATE 01483060202 No Longer Active Baltazar Childers MD Active LIPITOR 20 MG TABS Take one by mouth daily in evening ATORVASTATIN CALCIUM 82336925364 No Longer Active Baltazar Childers MD Activ e CRESTOR 10 MG TABS 1 by mouth every day R OSUVASTATIN CALCIUM 06499144065 No Longer Active Baltazar Childers MD Activ e PHENTERMINE HCL 37.5 MG TABS Take one by mouth daily 2 PHENTERMINE HCL 24853079015 No Longer Active Baltazar Childers MD Activ e ROBAXIN-750 750 MG TABS Take one by mouth daily ME THOCARBAMOL 95075156659 Active Baltazar Childers MD Active TIZANIDINE HCL 4 MG TABS 1 daily as needed for muscle spasm 2011 TIZANIDINE HCL 17548905789 No Longer Active Dawna Salazar RN Active ONETOUCH ULTRA BLUE STRP Test twice a day GLUCO SE BLOOD 52086948809 Active Baltazar Childers MD Active [id number]-[id number] 50-325-40 MG TABS 1 four time s a day as needed for heacache [id number]-[id number] 71110149227 Active Baltazar Childers MD Active SUMATRIPTAN SUCCINATE 100 MG TABS 1 tablet by mouth at onset of migraine as needed SUMATRIPTAN SUCCINATE 37609575234 Active Baltazar bynum MD Active LORATADINE 10 MG TABS Take one by mouth daily LORATADINE 95794264889 Active Baltazar Childers MD Active FUROSEMIDE 40 MG TABS Take one by mouth daily FUROSEMIDE 91496623539 Active Baltazar Childers MD Active LISINOPRIL 20 MG TABS Take one by mouth daily at bedtime LISINOPRIL 19423107606 Active Baltazar Childers MD Active OMEPRAZOLE 20 MG CPDR Take one by mouth daily OMEPRAZOLE 72416072107 Active Baltazar Childers MD Active HYDROXYZINE HCL 25 MG TABS Take one by mouth daily HYDROXYZINE HCL 35757715447 Active Baltazar Childers MD Active GLIPIZIDE 10 MG TABS 1 tablet by mouth twice daily GLIPIZIDE 85397271086 Active Baltazar Childers MD Active ALPRAZOLAM 1 MG TABS 1 tablet by mouth daily at bedtime for restles s leg ALPRAZOLAM 17195356961 Active Baltazar Childers MD Active METFORMIN HCL 1000 MG TABS Take one by mouth twice daily METFORMIN HCL 95160356813 Active Baltazar Childers MD Active TIZANIDINE HCL 4 MG TABS 1 daily as needed for muscle spasm 2011 TIZANIDINE HCL 4 MG TABS 441259 TIZANIDINE HCL Inactiv e PHENTERMINE HCL 37.5 MG TABS Take one by mouth daily 2 PHENTERMINE HCL 37.5 MG TABS 103753 PHENTERMINE HCL Inactive CRESTOR 10 MG TABS 1 by mouth every day C RESTOR 10 MG TABS ROSUVASTATIN CALCIUM Inactive LIPITOR 20 MG TABS Take one by mouth daily in evening LIPITOR 20 MG TABS 114978 ATORVASTATIN CALCIUM Inactive DEPO-TESTOSTERONE 200 MG/ML OIL as directed 8 DEPO-TESTOSTERONE 200 MG/ML OIL 675722 TESTOSTERONE CYPIONATE Inactive NAPROXEN 500 MG TABS 1 tablet by mouth twice daily 201 07/27/22 NAPROXEN 500 MG TABS 217388 NAPROXEN Inactive GABAPENTIN 300 MG CAPS 1 po qd x 2 days, then 1 po BID x 2 d ays, then 1 po TID GABAPENTIN 300 MG CAPS 095453 GABAPENTIN Inact amie Immunizations Vaccine Administration Date Value Standard Floyd cription pneumococcal immunization administered Pneumovax 23 [CVX33] pneumococcal polysaccharide vaccine, 23 valent Seasonal influenza vaccine, injectable, containing preservative, for > 3 years old (Afluria, FluLaval, Fluzone, Fluvirin, Fluarix, Agriflu(>= 18 yo)) Fluzone (>3 yrs.) [[id number]] Influenza, seasonal, inject able Seasonal influenza vaccine, injectable, containing preservative, for > 3 years old (Afluria, FluLaval, Fluzone, Fluvirin, Fluarix, Agriflu(>= 18 yo)) Fluzone (>3 yrs.) [[id number]] Influenza, seasonal, inject able Vital Signs Date [...] C - Chemistry sodium, serum 140 mmol/L 256-392 0315/02/26 potassium, serum 5.3 mmol/L 3.5-5.2 chloride, serum [...] 0.39 mg/dL 0.00-1.00 cholesterol, serum 345 mg/dL 905-740 5620/08/26 triglyceride, serum, fasting 635 mg/dL 30-200 HDL [...] Panel - Chemistry sodium, serum 136 mmol/L 050-139 5931/01/06 potassium, serum 5.1 mmol/L 3.5-5.2 chloride, serum [...] Panel - Chemistry sodium, serum 139 mmol/L 060-820 2988/08/26 potassium, serum 5.8 mmol/L 3.5-5.2 chloride, serum [...] mg/dL Encounters Code Encounter Date Provider Facility CPT-96207 Level 4 Est. Patient 12:20:13 CDT Baltazar Childers MD [facility] CPT-92433 Level 4 Est. Patient 14:52:45 CODING ASSISTANT Baltazar Childers MD [facility] CPT-15034 Level 4 Est. Patient 14:18:34 CODING ASSISTANT Baltazar Childers MD [facility] CPT-07056 Level 4 Est. Patient 15:18:29 CDT Baltazar Childers MD [facility] CPT-89318 Level 3 Est. Patient 12:45:34 CDT Baltazar Childers MD [facility] CPT-79408 Level 3 Est. Patient 10:10:11 CDT Baltazar Childers MD [facility] CPT-81117 Level 3 Est. Patient 14:07:50 CDT Baltazar Childers MD [facility] CPT-35757 Level 4 Est. Patient 12:26:10 CODING ASSISTANT Baltazar Childers MD [facility] CPT-60344 Level 4 Est. Patient 14:45:38 CDT Baltazar Childers MD [facility] CPT-96432 Level 4 New Patient 12:30:48 CDT Baltazar hinton MD [facility] Procedures Code Procedure Name Date Entry Date Standard Desc ription CPT-97383 First Vx Component - Ix admi n via ID IM or jet inj without physician counseling 15:17:19 CODING ASSISTANT CPT-82451 Pneumovax 15:17:19 CODING ASSISTANT CPT-52181 Pneumovax 14:52:45 CODING ASSISTANT CPT-34679 Venipuncture Draw Fee 14:06:30 CODING ASSISTANT CPT-000 Give Appropriate Flu Vaccine 14:18:34 CODING ASSISTANT 2 CPT-16968 Administration single or combination vac cine inc oral 14:46:00 CODING ASSISTANT CPT-17890 Influenza split virus > age 3 14:46:00 CODING ASSISTANT CPT-OV Office Visit 19:13:16 CDT CPT-38220 Zostavax 18:41:56 CDT CPT-18245 Administration single or combination vac cine inc oral 12:56:39 CDT CPT-73370 Zoster Vaccine (Zostavax) 12:56:39 CDT 2012 CPT-61051 Venipuncture Draw Fee 10:58:57 CDT CPT-10945 Sono pelvis non OB uterus ovaries cervix 17:45:04 CDT CPT-97996 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
--- OUTSIDE RECORDS SUMMARY | 2019-10-27 13:59 | XMS REPORT | Clinical Summary ---
Author Author Admin, [facility] Address Unknown [...] libido COLON POLYPS 211.3 Resolved Lolis Thomas SAFETY COUNCIL DIRECTOR Benign neoplasm of colon PERIPHERAL NEUROPATHY [...] Anemia, unspecified RENAL INSUFFICIENCY 593.9 Active Blatazar barron MD Unspecified disorder of kidney and ureter CAD 414.00 Active Gladys Yazmin Coronar y atherosclerosis of unspecified type of vessel, huslia or graft OTH NONSPC ABN FINDNG RAD&OTH [...] MISC Test twice a day LANCET S 04838874997 Active Baltazar Childers MD Active TRUEDRAW LANCING DEVICE MISC Test twice a day L ANCET DEVICES 33403644713 Active Baltazar Childers MD Active TRUETRACK TEST STRP Test twice a day GLUCOSE BLOO D 25209856146 Active Baltazar Childers MD Active TRUETRACK BLOOD GLUCOSE W/DEVICE KIT Test twice a day BLOOD GLUCOSE MONITORING SUPPL 17363739240 Active Bella Yokum SAFETY COUNCIL DIRECTOR Active HYDROCODONE-ACETAMINOPHEN 7.5-325 MG TABS Take 1 tab every 6-8 hour s PRN HYDROCODONE-ACETAMINOPHEN 65096230872 Active Bella Yogeovanyum SAFETY COUNCIL DIRECTOR Active NORTRIPTYLINE HCL 50 MG CAPS 1 every night for neuropathy 4 NORTRIPTYLINE HCL 92797871973 Active Baltazar Childers MD Acti ve GABAPENTIN 300 MG CAPS 1 three times a day GABAPE NTIN 58729227669 Active Baltazar Childers MD Active GABAPENTIN 300 MG CAPS 1 po qd x 2 days, then 1 po BID x 2 d ays, then 1 po TID GABAPENTIN 77552415820 No Longer Active Baltazar silverman MD Active TRAMADOL HCL 50 MG TABS 1 twice a day as needed for pain TRAMADOL HCL 81246858225 Active Baltazar Childers MD Active NAPROXEN 500 MG TABS 1 tablet by mouth twice daily NAPROXEN 52867351869 No Longer Active Baltazar Childers MD Active PROAIR HFA 108 (90 BASE) MCG/ACT AERS 2 puffs four times a d ay as needed ALBUTEROL SULFATE 03648704187 Active Baltazar Childers MD Active DEPO-TESTOSTERONE 200 MG/ML OIL as directed RUFINO TOSTERONE CYPIONATE 85011197635 No Longer Active Baltazar Childers MD Active LIPITOR 20 MG TABS Take one by mouth daily in evening ATORVASTATIN CALCIUM 66006723354 No Longer Active Baltazar Childers MD Activ e CRESTOR 10 MG TABS 1 by mouth every day R OSUVASTATIN CALCIUM 28235281502 No Longer Active Baltazar Childers MD Activ e PHENTERMINE HCL 37.5 MG TABS Take one by mouth daily 2 PHENTERMINE HCL 17732925987 No Longer Active Baltazar Childers MD Activ e ROBAXIN-750 750 MG TABS Take one by mouth daily ME THOCARBAMOL 44440397508 Active Baltazar Childers MD Active TIZANIDINE HCL 4 MG TABS 1 daily as needed for muscle spasm 2011 TIZANIDINE HCL 59472967116 No Longer Active Dawna Salazar RN Active Chemo BeaniesUCH ULTRA BLUE STRP Test twice a day GLUCO SE BLOOD 89485728624 Active Baltazar Childers MD Active [id number] 50-325-40 MG TABS 1 four time s a day as needed for heacache NHJDEDSYRE-SEMS-[id number] 26109707047 Active Bella Suarez APRN Active SUMATRIPTAN SUCCINATE 100 MG TABS 1 tablet by mouth at onset of migraine as needed SUMATRIPTAN SUCCINATE 93678938889 Active Bella STEPHEN RN Active LORATADINE 10 MG TABS Take one by mouth daily LORATADINE 50982026092 Active Baltazar Childers MD Active FUROSEMIDE 40 MG TABS Take one by mouth daily FUROSEMIDE 59360313177 Active Baltazar Childers MD Active LISINOPRIL 20 MG TABS Take one by mouth daily at bedtime LISINOPRIL 40254237065 Active Baltazar Childers MD Active OMEPRAZOLE 20 MG CPDR Take one by mouth daily OMEPRAZOLE 86556254838 Active Baltazar Childers MD Active HYDROXYZINE HCL 25 MG TABS Take one by mouth daily HYDROXYZINE HCL 07787946353 Active Baltazar Childers MD Active GLIPIZIDE 10 MG TABS 1 tablet by mouth twice daily GLIPIZIDE 51134085373 Active Baltazar Childers MD Active ALPRAZOLAM 1 MG TABS 1 tablet by mouth daily at bedtime for restles s leg ALPRAZOLAM 72816255594 Active Baltazar Childers MD Active METFORMIN HCL 1000 MG TABS Take one by mouth twice daily METFORMIN HCL 48070850636 Active Baltazar Childers MD Active TIZANIDINE HCL 4 MG TABS 1 daily as needed for muscle spasm 2011 TIZANIDINE HCL 4 MG TABS 892755 TIZANIDINE HCL Inactiv e PHENTERMINE HCL 37.5 MG TABS Take one by mouth daily 2 PHENTERMINE HCL 37.5 MG TABS 998296 PHENTERMINE HCL Inactive CRESTOR 10 MG TABS 1 by mouth every day C RESTOR 10 MG TABS ROSUVASTATIN CALCIUM Inactive LIPITOR 20 MG TABS Take one by mouth daily in evening LIPITOR 20 MG TABS 312937 ATORVASTATIN CALCIUM Inactive DEPO-TESTOSTERONE 200 MG/ML OIL as directed 8 DEPO-TESTOSTERONE 200 MG/ML OIL 559658 TESTOSTERONE CYPIONATE Inactive NAPROXEN 500 MG TABS 1 tablet by mouth twice daily 201 07/27/22 NAPROXEN 500 MG TABS 131646 NAPROXEN Inactive GABAPENTIN 300 MG CAPS 1 po qd x 2 days, then 1 po BID x 2 d ays, then 1 po TID GABAPENTIN 300 MG CAPS 960328 GABAPENTIN Inact amie Immunizations Vaccine Administration Date Value Standard Floyd cription pneumococcal immunization administered Pneumovax 23 [CVX33] pneumococcal polysaccharide vaccine, 23 valent Seasonal influenza vaccine, injectable, containing preservative, for > 3 years old (Afluria, FluLaval, Fluzone, Fluvirin, Fluarix, Agriflu(>= 18 yo)) Fluzone (>3 yrs.) [[id number]] Influenza, seasonal, inject able Seasonal influenza vaccine, injectable, containing preservative, for > 3 years old (Afluria, FluLaval, Fluzone, Fluvirin, Fluarix, Agriflu(>= 18 yo)) Fluzone (>3 yrs.) [[id number]] Influenza, seasonal, inject able Vital Signs Date [...] pressure, diastolic - 8462-4 76 mm[Hg] BP salmreon blood pressure, systolic - 8480-6 134 mm[Hg] [...] C - Chemistry sodium, serum 140 mmol/L 293-405 9450/02/26 potassium, serum 5.3 mmol/L 3.5-5.2 chloride, serum [...] Panel - Chemistry sodium, serum 136 mmol/L 254-040 1780/01/06 potassium, serum 5.1 mmol/L 3.5-5.2 chloride, serum [...] mg/g mg/g{creat} 0-29 cholesterol, serum 319 mg/dL 936-932 9415/08/21 triglyceride, serum, fasting 546 mg/dL 30-200 HDL cholesterol, serum 39 mg/dL 32-96 LDL cholesterol, serum 167.00 mg/dL 5.00-130.00 hemoglobin A1C, blood, as % of total hemoglobin 7.7 % 4.3-6.0 sodium, serum 138 mmol/L 457-525 8908/08/21 potassium, serum 4.3 mmol/L 3.5-5.2 chloride, serum [...] mg/dL Encounters Code Encounter Date Provider Facility CPT-90150 Level 4 Est. Patient 14:15:19 CDT Baltazar Childers MD [facility] CPT-29493 Level 4 Est. Patient 12:20:13 CDT Baltazar Childers MD [facility] CPT-44844 Level 4 Est. Patient 14:52:45 NAILER HAND Baltazar Childers MD [facility] CPT-98343 Level 4 Est. Patient 14:18:34 NAILER HAND Baltazar Childers MD [facility] CPT-86118 Level 4 Est. Patient 15:18:29 CDT Baltazar Childers MD [facility] CPT-39764 Level 3 Est. Patient 12:45:34 CDT Baltazar Childers MD [facility] CPT-34606 Level 3 Est. Patient 10:10:11 CDT Baltazar Childers MD [facility] CPT-69340 Level 3 Est. Patient 14:07:50 CDT Baltazar Childers MD [facility] CPT-16164 Level 4 Est. Patient 12:26:10 NAILER HAND Baltazar Childers MD [facility] CPT-45275 Level 4 Est. Patient 14:45:38 CDT Baltazar Childers MD [facility] CPT-98850 Level 4 New Patient 12:30:48 CDT Baltazar hinton MD [facility] Procedures Code Procedure Name Date Entry Date Standard Desc ription CPT-80383 Fluzone Quadrivalent Intramuscular Suspe nsion 0.5 ML 10:49:13 CDT CPT-72094 First Vx Component - Ix admi n via ID IM or jet inj without physician counseling 15:17:19 NAILER HAND CPT-28341 Pneumovax 15:17:19 NAILER HAND CPT-82748 Pneumovax 14:52:45 NAILER HAND CPT-20440 Venipuncture Draw Fee 14:06:30 NAILER HAND CPT-000 Give Appropriate Flu Vaccine 14:18:34 NAILER HAND 2 CPT-85524 Administration single or combination vac cine inc oral 14:46:00 NAILER HAND CPT-48126 Influenza split virus > age 3 14:46:00 NAILER HAND CPT-OV Office Visit 19:13:16 CDT CPT-60346 Zostavax 18:41:56 CDT CPT-55087 Administration single or combination vac cine inc oral 12:56:39 CDT CPT-47508 Zoster Vaccine (Zostavax) 12:56:39 CDT 2012 CPT-17437 Venipuncture Draw Fee 10:58:57 CDT CPT-26618 Sono pelvis non OB uterus ovaries cervix 17:45:04 CDT CPT-27905 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
--- OUTSIDE RECORDS SUMMARY | 2019-10-27 14:00 | XMS REPORT | Clinical Summary ---
Author Author Admin, [facility] Address Unknown Phone Allergies, Adverse [...] skin sensation FH DIABETES V18.0 Active Baltazar Chliders MD Family history of diabetes mellitus ANEMIA 285.9 Active Baltazar Childers MD Anemia, unspecified RENAL INSUFFICIENCY 593.9 Active Baltazar bynum MD Unspecified disorder of kidney and ureter CAD 414.00 Active Gladys Yazmin Coronar y atherosclerosis of unspecified type of vessel, chinik [...] tab every 6-8 hour s PRN HYDROCODONE-ACETAMINOPHEN 83484432846 Active Baltazar Childers MD Active NORTRIPTYLINE HCL 50 MG CAPS 1 every night for neuropathy 4 NORTRIPTYLINE HCL 43760810665 Active Baltazar Childers MD Acti ve GABAPENTIN 300 MG CAPS 1 three times a day GABAPE NTIN 58738820140 Active Baltazar Childers MD Active GABAPENTIN 300 MG CAPS 1 po qd x 2 days, then 1 po BID x 2 d ays, then 1 po TID GABAPENTIN 88270594393 No Longer Active Baltazar silverman MD Active TRAMADOL HCL 50 MG TABS 1 twice a day as needed for pain TRAMADOL HCL 18798716792 Active Baltazar Childers MD Active NAPROXEN 500 MG TABS 1 tablet by mouth twice daily NAPROXEN 20277661393 No Longer Active Baltazar Childers MD Active PROAIR HFA 108 (90 BASE) MCG/ACT AERS 2 puffs four times a d ay as needed ALBUTEROL SULFATE 46107393194 Active Baltazar Childers MD Active DEPO-TESTOSTERONE 200 MG/ML OIL as directed RUFINO TOSTERONE CYPIONATE 69008315743 No Longer Active Baltazar Childers MD Active LIPITOR 20 MG TABS Take one by mouth daily in evening ATORVASTATIN CALCIUM 79014956604 No Longer Active Baltazar Childers MD Activ e CRESTOR 10 MG TABS 1 by mouth every day R OSUVASTATIN CALCIUM 36313212311 No Longer Active Baltazar Childers MD Activ e PHENTERMINE HCL 37.5 MG TABS Take one by mouth daily 2 PHENTERMINE HCL 52792481547 No Longer Active Baltazar Childers MD Activ e ROBAXIN-750 750 MG TABS Take one by mouth daily ME THOCARBAMOL 99710621581 Active Baltazar Childers MD Active TIZANIDINE HCL 4 MG TABS 1 daily as needed for muscle spasm 2011 TIZANIDINE HCL 34775032907 No Longer Active Dawna Salazar RN Active ONETOUCH ULTRA BLUE STRP Test twice a day GLUCO SE BLOOD 72012643884 Active Baltazar Childers MD Active [id number]-HIEJ-HPFXVZZX 50-325-40 MG TABS 1 four time s a day as needed for heacache QSSPSFDBZR-WIWF-VQLEDOCZ 26366548873 Active Baltazar Childers MD Active SUMATRIPTAN SUCCINATE 100 MG TABS 1 tablet by mouth at onset of migraine as needed SUMATRIPTAN SUCCINATE 02688430756 Active Shireen Miller APRN Active LORATADINE 10 MG TABS Take one by mouth daily LORATADINE 69821940503 Active Brad Hughes Active FUROSEMIDE 40 MG TABS Take one by mouth daily FUROSEMIDE 54999364594 Active Shireen Miller APRN Active LISINOPRIL 20 MG TABS Take one by mouth daily at bedtime LISINOPRIL 10280233913 Active Shireen Miller APRN Active OMEPRAZOLE 20 MG CPDR Take one by mouth daily OMEPRAZOLE 98477680103 Active Shireen Miller APRN Active HYDROXYZINE HCL 25 MG TABS Take one by mouth daily HYDROXYZINE HCL 45351021967 Active Shireen Miller APRN Active GLIPIZIDE 10 MG TABS 1 tablet by mouth twice daily GLIPIZIDE 14047309338 Active Shireen Miller APRN Active ALPRAZOLAM 1 MG TABS 1 tablet by mouth daily at bedtime for restles s leg ALPRAZOLAM 95617488546 Active Baltazar Childers MD Active METFORMIN HCL 1000 MG TABS Take one by mouth twice daily METFORMIN HCL 67626183972 Active Shireen Miller APRN Active TIZANIDINE HCL 4 MG TABS 1 daily as needed for muscle spasm 2011 TIZANIDINE HCL 4 MG TABS 887681 TIZANIDINE HCL Inactiv e PHENTERMINE HCL 37.5 MG TABS Take one by mouth daily 2 PHENTERMINE HCL 37.5 MG TABS 897210 PHENTERMINE HCL Inactive CRESTOR 10 MG TABS 1 by mouth every day C RESTOR 10 MG TABS ROSUVASTATIN CALCIUM Inactive LIPITOR 20 MG TABS Take one by mouth daily in evening LIPITOR 20 MG TABS 017328 ATORVASTATIN CALCIUM Inactive DEPO-TESTOSTERONE 200 MG/ML OIL as directed 8 DEPO-TESTOSTERONE 200 MG/ML OIL 942191 TESTOSTERONE CYPIONATE Inactive NAPROXEN 500 MG TABS 1 tablet by mouth twice daily 201 07/27/22 NAPROXEN 500 MG TABS 473162 NAPROXEN Inactive GABAPENTIN 300 MG CAPS 1 po qd x 2 days, then 1 po BID x 2 d ays, then 1 po TID GABAPENTIN 300 MG CAPS 207144 GABAPENTIN Inact amie Immunizations Vaccine Administration Date Value Standard Floyd cription pneumococcal immunization administered Pneumovax 23 [CVX33] pneumococcal polysaccharide vaccine, 23 valent Seasonal influenza vaccine, injectable, containing preservative, for > 3 years old (Afluria, FluLaval, Fluzone, Fluvirin, Fluarix, Agriflu(>= 18 yo)) Fluzone (>3 yrs.) [[id number]] Influenza, seasonal, inject able Seasonal influenza vaccine, injectable, containing preservative, for > 3 years old (Afluria, FluLaval, Fluzone, Fluvirin, Fluarix, Agriflu(>= 18 yo)) Fluzone (>3 yrs.) [[id number]] Influenza, seasonal, inject able Vital Signs Date [...] C - Chemistry sodium, serum 140 mmol/L 437-708 2211/02/26 potassium, serum 5.3 mmol/L 3.5-5.2 chloride, serum 101 mmol/L 98-107 carbon dioxide, venous blood 36.9 mmol/L 21.0-32 .0 blood glucose 151 mg/dL 65-110 calcium, serum 8.7 mg/dL 8.5-10.1 urea nitrogen, blood 19 mg/dL 7-18 creatinine, serum 1.60 mg/dL 0.60-1.30 hemoglobin A1C, blood, as % of total hemoglobin 7.9 % 4.3-6.0 Lab Report: CBC, Basic Metabolic Panel, HGBA1C - Chemistry sodium, serum 138 mmol/L 658-348 5017/05/23 potassium, serum 4.9 mmol/L 3.5-5.2 chloride, serum [...] 0.39 mg/dL 0.00-1.00 cholesterol, serum 345 mg/dL 016-889 8127/08/26 triglyceride, serum, fasting 635 mg/dL 30-200 HDL [...] Panel - Chemistry sodium, serum 136 mmol/L 269-941 9182/01/06 potassium, serum 5.1 mmol/L 3.5-5.2 chloride, serum [...] Panel - Chemistry sodium, serum 139 mmol/L 371-293 4278/08/26 potassium, serum 5.8 mmol/L 3.5-5.2 chloride, serum 98 mmol/L 98-107 carbon dioxide, venous blood 33.0 mmol/L 21.0-32 .0 blood glucose 107 mg/dL 65-110 urea nitrogen, blood 26 mg/dL 7-18 creatinine, serum 1.80 mg/dL 0.60-1.30 calcium, serum 9.3 mg/dL 8.5-10.1 sodium, serum 138 mmol/L 967-833 0519/06/17 potassium, serum 4.9 mmol/L 3.5-5.2 chloride, serum [...] mg/dL Encounters Code Encounter Date Provider Facility CPT-24974 Level 4 Est. Patient 14:52:45 STRUCTURAL WORKER Baltazar Childers MD [facility] CPT-53843 Level 4 Est. Patient 14:18:34 STRUCTURAL WORKER Baltazar Childers MD [facility] CPT-93648 Level 4 Est. Patient 15:18:29 CDT Baltazar Childers MD [facility] CPT-45275 Level 3 Est. Patient 12:45:34 CDT Baltazar Childers MD [facility] CPT-00572 Level 3 Est. Patient 10:10:11 CDT Baltazar Childers MD [facility] CPT-73496 Level 3 Est. Patient 14:07:50 CDT Baltazar Childers MD [facility] CPT-26704 Level 4 Est. Patient 12:26:10 STRUCTURAL WORKER Baltazar Childers MD [facility] CPT-20766 Level 4 Est. Patient 14:45:38 CDT Baltazar Childers MD [facility] CPT-43904 Level 4 New Patient 12:30:48 CDT Baltazar hinton MD [facility] Procedures Code Procedure Name Date Entry Date Standard Desc ription CPT-01319 First Vx Component - Ix admi n via ID IM or jet inj without physician counseling 15:17:19 STRUCTURAL WORKER CPT-66801 Pneumovax 15:17:19 STRUCTURAL WORKER CPT-68099 Pneumovax 14:52:45 STRUCTURAL WORKER CPT-26856 Venipuncture Draw Fee 14:06:30 STRUCTURAL WORKER CPT-000 Give Appropriate Flu Vaccine 14:18:34 STRUCTURAL WORKER 2 CPT-37817 Administration single or combination vac cine inc oral 14:46:00 STRUCTURAL WORKER CPT-82391 Influenza split virus > age 3 14:46:00 STRUCTURAL WORKER CPT-OV Office Visit 19:13:16 CDT CPT-71516 Zostavax 18:41:56 CDT CPT-55593 Administration single or combination vac cine inc oral 12:56:39 CDT CPT-46789 Zoster Vaccine (Zostavax) 12:56:39 CDT 2012 CPT-73071 Venipuncture Draw Fee 10:58:57 CDT CPT-58464 Sono pelvis non OB uterus ovaries cervix 17:45:04 CDT CPT-41572 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
--- OUTSIDE RECORDS SUMMARY | 2019-10-27 14:00 | XMS REPORT | Clinical Summary ---
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 [employer] Benign neoplasm of colon PERIPHERAL NEUROPATHY 356.9 [...] y atherosclerosis of unspecified type of vessel, [place] [...] health care facility COLON POLYPS ICD-211.3 Inactive Lolissigrid Thomas APR N Medication List Medication Instructions Start Date Stop Date Generic Name NDC Status Provider Patient Instruction TRUEPLUS LANCETS 33G MISC Test twice a day LANCET S [id number] Active Baltazar Childers MD Active TRUEDRAW LANCING DEVICE MISC Test twice a day L ANCET DEVICES 95343281801 Active Baltazar Childers MD Active TRUETRACK TEST STRP Test twice a day GLUCOSE BLOO D 29872055604 Active Baltazar Childers MD Active TRUETRACK BLOOD GLUCOSE W/DEVICE KIT Test twice a day BLOOD GLUCOSE MONITORING SUPPL 56159833452 Active Baltazar Childers MD Activ e HYDROCODONE-ACETAMINOPHEN 7.5-325 MG TABS Take 1 tab every 6-8 hour s PRN HYDROCODONE-ACETAMINOPHEN 73704580336 Active Bella Daniela [employer] Active NORTRIPTYLINE HCL 50 MG CAPS 1 every night for neuropathy 4 NORTRIPTYLINE HCL 19212741468 Active Baltazar Childers MD Acti ve GABAPENTIN 300 MG CAPS 1 three times a day GABAPE NTIN 33261526397 Active Baltazar Childers MD Active GABAPENTIN 300 MG CAPS 1 po qd x 2 days, then 1 po BID x 2 d ays, then 1 po TID GABAPENTIN 92261825544 No Longer Active Baltazar silverman MD Active TRAMADOL HCL 50 MG TABS 1 twice a day as needed for pain TRAMADOL HCL 64387180903 Active Baltazar Childers MD Active NAPROXEN 500 MG TABS 1 tablet by mouth twice daily NAPROXEN 40696611779 No Longer Active Baltazar Childers MD Active PROAIR HFA 108 (90 BASE) MCG/ACT AERS 2 puffs four times a d ay as needed ALBUTEROL SULFATE 22131188915 Active Baltazar Childers MD Active DEPO-TESTOSTERONE 200 MG/ML OIL as directed RUFINO TOSTERONE CYPIONATE 25126670091 No Longer Active Baltazar Childers MD Active LIPITOR 20 MG TABS Take one by mouth daily in evening ATORVASTATIN CALCIUM 40292705504 No Longer Active Baltazar Childers MD Activ e CRESTOR 10 MG TABS 1 by mouth every day R OSUVASTATIN CALCIUM 95262285472 No Longer Active Baltazar Childers MD Activ e PHENTERMINE HCL 37.5 MG TABS Take one by mouth daily 2 PHENTERMINE HCL 29519568558 No Longer Active Baltazar Childers MD Activ e ROBAXIN-750 750 MG TABS Take one by mouth daily ME THOCARBAMOL 95225137113 Active Baltazar Childers MD Active TIZANIDINE HCL 4 MG TABS 1 daily as needed for muscle spasm 2011 TIZANIDINE HCL 44753546837 No Longer Active Dawna Salazar RN Active [id number] ULTRA BLUE STRP Test twice a day GLUCO SE BLOOD 66651036468 Active Baltazar Childers MD Active [id number] 50-325-40 MG TABS 1 four time s a day as needed for heacache [id number] 12009197340 Active Baltazar Childers MD Active SUMATRIPTAN SUCCINATE 100 MG TABS 1 tablet by mouth at onset of migraine as needed SUMATRIPTAN SUCCINATE 80393375640 Active Baltazar bynum MD Active LORATADINE 10 MG TABS Take one by mouth daily LORATADINE 53866992083 Active Baltazar Childers MD Active FUROSEMIDE 40 MG TABS Take one by mouth daily FUROSEMIDE 87048795044 Active Baltazar Childers MD Active LISINOPRIL 20 MG TABS Take one by mouth daily at bedtime LISINOPRIL 94576900061 Active Baltazar Childers MD Active OMEPRAZOLE 20 MG CPDR Take one by mouth daily OMEPRAZOLE 37356860157 Active Baltazar Childers MD Active HYDROXYZINE HCL 25 MG TABS Take one by mouth daily HYDROXYZINE HCL 88478459735 Active Baltazar Childers MD Active GLIPIZIDE 10 MG TABS 1 tablet by mouth twice daily GLIPIZIDE 33737736927 Active Baltazar Childers MD Active ALPRAZOLAM 1 MG TABS 1 tablet by mouth daily at bedtime for restles s leg ALPRAZOLAM 60993787093 Active Baltazar Childers MD Active METFORMIN HCL 1000 MG TABS Take one by mouth twice daily METFORMIN HCL 40795188103 Active Baltazar Childers MD Active TIZANIDINE HCL 4 MG TABS 1 daily as needed for muscle spasm 2011 TIZANIDINE HCL 4 MG TABS 967779 TIZANIDINE HCL Inactiv e PHENTERMINE HCL 37.5 MG TABS Take one by mouth daily 2 PHENTERMINE HCL 37.5 MG TABS 809207 PHENTERMINE HCL Inactive CRESTOR 10 MG TABS 1 by mouth every day C RESTOR 10 MG TABS ROSUVASTATIN CALCIUM Inactive LIPITOR 20 MG TABS Take one by mouth daily in evening LIPITOR 20 MG TABS 597168 ATORVASTATIN CALCIUM Inactive DEPO-TESTOSTERONE 200 MG/ML OIL as directed 8 DEPO-TESTOSTERONE 200 MG/ML OIL 582221 TESTOSTERONE CYPIONATE Inactive NAPROXEN 500 MG TABS 1 tablet by mouth twice daily 201 07/27/22 NAPROXEN 500 MG TABS 655773 NAPROXEN Inactive GABAPENTIN 300 MG CAPS 1 po qd x 2 days, then 1 po BID x 2 d ays, then 1 po TID GABAPENTIN 300 MG CAPS 061815 GABAPENTIN Inact amie Immunizations Vaccine Administration Date Value Standard Floyd cription pneumococcal immunization administered Pneumovax 23 [CVX33] pneumococcal polysaccharide vaccine, 23 valent Seasonal influenza vaccine, injectable, containing preservative, for > 3 years old (Afluria, FluLaval, Fluzone, Fluvirin, Fluarix, Agriflu(>= 18 yo)) Fluzone (>3 yrs.) [[id number]] Influenza, seasonal, inject able Seasonal influenza vaccine, injectable, containing preservative, for > 3 years old (Afluria, FluLaval, Fluzone, Fluvirin, Fluarix, Agriflu(>= 18 yo)) Fluzone (>3 yrs.) [[id number]] Influenza, seasonal, inject able Vital Signs Date [...] C - Chemistry sodium, serum 140 mmol/L 718-911 5408/02/26 potassium, serum 5.3 mmol/L 3.5-5.2 chloride, serum [...] Panel - Chemistry sodium, serum 136 mmol/L 324-740 7236/01/06 potassium, serum 5.1 mmol/L 3.5-5.2 chloride, serum [...] mg/g mg/g{creat} 0-29 cholesterol, serum 319 mg/dL 273-677 1909/08/21 triglyceride, serum, fasting 546 mg/dL 30-200 HDL cholesterol, serum 39 mg/dL 32-96 LDL cholesterol, serum 167.00 mg/dL 5.00-130.00 hemoglobin A1C, blood, as % of total hemoglobin 7.7 % 4.3-6.0 sodium, serum 138 mmol/L 605-137 1327/08/21 potassium, serum 4.3 mmol/L 3.5-5.2 chloride, serum [...] mg/dL Encounters Code Encounter Date Provider Facility CPT-46606 Level 4 Est. Patient 14:15:19 CDT Baltazar Childers MD [facility] CPT-49856 Level 4 Est. Patient 12:20:13 CDT Baltazar Childers MD [facility] CPT-10270 Level 4 Est. 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 Patient 14:18:34 REGULATORY SUBMISSIONS SPECIALIST Baltazar Childers MD [facility] CPT-26907 Level 4 Est. Patient 15:18:29 CDT Baltazar Childers MD [facility] CPT-87119 Level 3 Est. Patient 12:45:34 CDT Baltazar Childers MD [facility] CPT-80171 Level 3 Est. Patient 10:10:11 CDT Baltazar Childers MD [facility] CPT-77830 Level 3 Est. Patient 14:07:50 CDT Baltazar Childers MD [facility] CPT-69011 Level 4 Est. Patient 12:26:10 REGULATORY SUBMISSIONS SPECIALIST Baltazar Childers MD [facility] CPT-75537 Level 4 Est. Patient 14:45:38 CDT Baltazar Childers MD [facility] CPT-69486 Level 4 New Patient 12:30:48 CDT Baltazar hinton MD [facility] Procedures Code Procedure Name Date Entry Date Standard Desc ription CPT-02599 Fluzone Quadrivalent Intramuscular Suspe nsion 0.5 ML 10:49:13 CDT CPT-71398 First Vx Component - Ix admi n via ID IM or jet inj without physician counseling 15:17:19 REGULATORY SUBMISSIONS SPECIALIST CPT-03175 Pneumovax 15:17:19 REGULATORY SUBMISSIONS SPECIALIST CPT-22920 Pneumovax 14:52:45 REGULATORY SUBMISSIONS SPECIALIST CPT-63427 Venipuncture Draw Fee 14:06:30 REGULATORY SUBMISSIONS SPECIALIST CPT-000 Give Appropriate Flu Vaccine 14:18:34 REGULATORY SUBMISSIONS SPECIALIST 2 CPT-01045 Administration single or combination vac cine inc oral 14:46:00 REGULATORY SUBMISSIONS SPECIALIST CPT-78806 Influenza split virus > age 3 14:46:00 REGULATORY SUBMISSIONS SPECIALIST CPT-OV Office Visit 19:13:16 CDT CPT-07267 Zostavax 18:41:56 CDT CPT-51945 Administration single or combination vac cine inc oral 12:56:39 CDT CPT-13629 Zoster Vaccine (Zostavax) 12:56:39 CDT 2012 CPT-63921 Venipuncture Draw Fee 10:58:57 CDT CPT-94137 Sono pelvis non OB uterus ovaries cervix 17:45:04 CDT CPT-91730 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
--- OUTSIDE RECORDS SUMMARY | 2019-10-27 14:00 | XMS REPORT | Clinical Summary ---
Author Author Admin, Elba Lance [facility] Address Unknown Phone Allergies, Adverse [...] rhinitis, cause unspecified MIGRAINE 346.90 Active Baltazar Cihlders MD Migraine, unspecified, without mention of intractable [...] y atherosclerosis of unspecified type of vessel, [place] or graft OTH NONSPC ABN FINDNG RAD&OTH [...] unspecified WELL WOMAN EXAMINATION V72.31 Active Gayathri avlies MD Routine gynecological examination Health screening V70.0 Active Baltazar Wayne Routine general medical examination at a health care facility COLON POLYPS ICD-211.3 Inactive Lolis Thomas APR N Medication List Medication Instructions Start Date Stop Date Generic Name NDC Status Provider Patient Instruction HYDROCODONE-ACETAMINOPHEN 7.5-325 MG TABS Take 1 tab every 6-8 hour s PRN HYDROCODONE-ACETAMINOPHEN 11868294834 Active Baltazar Childers MD Active NORTRIPTYLINE HCL 50 MG CAPS 1 every night for neuropathy 4 NORTRIPTYLINE HCL 80129496720 Active Baltazar Childers MD Acti ve GABAPENTIN 300 MG CAPS 1 three times a day GABAPE NTIN 02426669960 Active Baltazar Childers MD Active GABAPENTIN 300 MG CAPS 1 po qd x 2 days, then 1 po BID x 2 d ays, then 1 po TID GABAPENTIN 57931624546 No Longer Active Baltazar silverman MD Active TRAMADOL HCL 50 MG TABS 1 twice a day as needed for pain TRAMADOL HCL 46012833412 Active Baltazar Childers MD Active NAPROXEN 500 MG TABS 1 tablet by mouth twice daily NAPROXEN 14909106237 No Longer Active Baltazar Childers MD Active PROAIR HFA 108 (90 BASE) MCG/ACT AERS 2 puffs four times a d ay as needed ALBUTEROL SULFATE 85287834398 Active Baltazar Childers MD Active DEPO-TESTOSTERONE 200 MG/ML OIL as directed RUFINO TOSTERONE CYPIONATE 72824866688 No Longer Active Baltazar Childers MD Active LIPITOR 20 MG TABS Take one by mouth daily in evening ATORVASTATIN CALCIUM 82375628412 No Longer Active Baltazar Childers MD Activ e CRESTOR 10 MG TABS 1 by mouth every day R OSUVASTATIN CALCIUM 69048544635 No Longer Active Baltazar Childers MD Activ e PHENTERMINE HCL 37.5 MG TABS Take one by mouth daily 2 PHENTERMINE HCL 47686803425 No Longer Active Baltazar Childers MD Activ e ROBAXIN-750 750 MG TABS Take one by mouth daily ME THOCARBAMOL 66161561642 Active Baltazar Childers MD Active TIZANIDINE HCL 4 MG TABS 1 daily as needed for muscle spasm 2011 TIZANIDINE HCL 20659954632 No Longer Active Dawna Salazar RN Active ONETOUCH ULTRA BLUE STRP Test twice a day GLUCO SE BLOOD 77335784536 Active Baltazar Childers MD Active [id number] 50-325-40 MG TABS 1 four time s a day as needed for heacache [id number] 39288378102 Active Baltazar Childers MD Active SUMATRIPTAN SUCCINATE 100 MG TABS 1 tablet by mouth at onset of migraine as needed SUMATRIPTAN SUCCINATE 85125745752 Active Shireen Miller APRN Active LORATADINE 10 MG TABS Take one by mouth daily LORATADINE 20705822500 Active Brad Hughes Active FUROSEMIDE 40 MG TABS Take one by mouth daily FUROSEMIDE 73885279201 Active Shireen Miller APRN Active LISINOPRIL 20 MG TABS Take one by mouth daily at bedtime LISINOPRIL 36669855243 Active Shireen Miller APRN Active OMEPRAZOLE 20 MG CPDR Take one by mouth daily OMEPRAZOLE 79626316754 Active Shireen Miller APRN Active HYDROXYZINE HCL 25 MG TABS Take one by mouth daily HYDROXYZINE HCL 41438342536 Active Shireen Miller APRN Active GLIPIZIDE 10 MG TABS 1 tablet by mouth twice daily GLIPIZIDE 67889506271 Active Shireen Miller APRN Active ALPRAZOLAM 1 MG TABS 1 tablet by mouth daily at bedtime for restles s leg ALPRAZOLAM 22567969673 Active Baltazar Childers MD Active METFORMIN HCL 1000 MG TABS Take one by mouth twice daily METFORMIN HCL 21124744268 Active Shireen Miller APRN Active TIZANIDINE HCL 4 MG TABS 1 daily as needed for muscle spasm 2011 TIZANIDINE HCL 4 MG TABS 893725 TIZANIDINE HCL Inactiv e PHENTERMINE HCL 37.5 MG TABS Take one by mouth daily 2 PHENTERMINE HCL 37.5 MG TABS 208740 PHENTERMINE HCL Inactive CRESTOR 10 MG TABS 1 by mouth every day C RESTOR 10 MG TABS ROSUVASTATIN CALCIUM Inactive LIPITOR 20 MG TABS Take one by mouth daily in evening LIPITOR 20 MG TABS 209988 ATORVASTATIN CALCIUM Inactive DEPO-TESTOSTERONE 200 MG/ML OIL as directed 8 DEPO-TESTOSTERONE 200 MG/ML OIL 493866 TESTOSTERONE CYPIONATE Inactive NAPROXEN 500 MG TABS 1 tablet by mouth twice daily 201 07/27/22 NAPROXEN 500 MG TABS 714498 NAPROXEN Inactive GABAPENTIN 300 MG CAPS 1 po qd x 2 days, then 1 po BID x 2 d ays, then 1 po TID GABAPENTIN 300 MG CAPS 663960 GABAPENTIN Inact amie Immunizations Vaccine Administration Date Value Standard Floyd cription pneumococcal immunization administered Pneumovax 23 [CVX33] pneumococcal polysaccharide vaccine, 23 valent Seasonal influenza vaccine, injectable, containing preservative, for > 3 years old (Afluria, FluLaval, Fluzone, Fluvirin, Fluarix, Agriflu(>= 18 yo)) Fluzone (>3 yrs.) [WYV201] Influenza, seasonal, inject able Seasonal influenza vaccine, injectable, containing preservative, for > 3 years old (Afluria, FluLaval, Fluzone, Fluvirin, Fluarix, Agriflu(>= 18 yo)) Fluzone (>3 yrs.) [[id number]] Influenza, seasonal, inject able Vital Signs Date [...] C - Chemistry sodium, serum 140 mmol/L 952-189 1216/02/26 potassium, serum 5.3 mmol/L 3.5-5.2 chloride, serum [...] 0.39 mg/dL 0.00-1.00 cholesterol, serum 345 mg/dL 837-409 3109/08/26 triglyceride, serum, fasting 635 mg/dL 30-200 HDL [...] Panel - Chemistry sodium, serum 136 mmol/L 415-642 4511/01/06 potassium, serum 5.1 mmol/L 3.5-5.2 chloride, serum [...] Panel - Chemistry sodium, serum 139 mmol/L 107-592 5752/08/26 potassium, serum 5.8 mmol/L 3.5-5.2 chloride, serum 98 mmol/L 98-107 carbon dioxide, venous blood 33.0 mmol/L 21.0-32 .0 blood glucose 107 mg/dL 65-110 urea nitrogen, blood 26 mg/dL 7-18 creatinine, serum 1.80 mg/dL 0.60-1.30 calcium, serum 9.3 mg/dL 8.5-10.1 sodium, serum 138 mmol/L 242-428 5131/06/17 potassium, serum 4.9 mmol/L 3.5-5.2 chloride, serum [...] mg/dL Encounters Code Encounter Date Provider Facility CPT-57016 Level 4 Est. Patient 14:52:45 GIANT TIRE REPAIRER Baltazar Childers MD [facility] CPT-18988 Level 4 Est. Patient 14:18:34 GIANT TIRE REPAIRER Baltazar Childers MD [facility] CPT-17411 Level 4 Est. Patient 15:18:29 CDT Baltazar Childers MD [facility] CPT-67440 Level 3 Est. Patient 12:45:34 CDT Baltazar Childers MD [facility] CPT-85644 Level 3 Est. Patient 10:10:11 CDT Baltazar Childers MD [facility] CPT-68836 Level 3 Est. Patient 14:07:50 CDT Baltazar Childers MD [facility] CPT-31060 Level 4 Est. Patient 12:26:10 GIANT TIRE REPAIRER Baltazar Childers MD [facility] CPT-74153 Level 4 Est. Patient 14:45:38 CDT Baltazar Childers MD [facility] CPT-32961 Level 4 New Patient 12:30:48 CDT Baltazar hinton MD [facility] Procedures Code Procedure Name Date Entry Date Standard Desc ription CPT-64161 First Vx Component - Ix admi n via ID IM or jet inj without physician counseling 15:17:19 GIANT TIRE REPAIRER CPT-54535 Pneumovax 23 15:17:19 GIANT TIRE REPAIRER CPT-19616 Pneumovax 14:52:45 GIANT TIRE REPAIRER CPT-12212 Venipuncture Draw Fee 14:06:30 GIANT TIRE REPAIRER CPT-000 Give Appropriate Flu Vaccine 14:18:34 GIANT TIRE REPAIRER 2 CPT-61124 Administration single or combination vac cine inc oral 14:46:00 GIANT TIRE REPAIRER CPT-79118 Influenza split virus > age 3 14:46:00 GIANT TIRE REPAIRER CPT-OV Office Visit 19:13:16 CDT CPT-58328 Zostavax 18:41:56 CDT CPT-41038 Administration single or combination vac cine inc oral 12:56:39 CDT CPT-08804 Zoster Vaccine (Zostavax) 12:56:39 CDT 2012 CPT-61232 Venipuncture Draw Fee 10:58:57 CDT CPT-63924 Sono pelvis non OB uterus ovaries cervix 17:45:04 CDT CPT-76358 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
--- OUTSIDE RECORDS SUMMARY | 2019-10-27 14:00 | XMS REPORT | Clinical Summary ---
Author Author Admin, Elba Lance [facility] Address Unknown Phone Allergies, Adverse Reactions, Alerts [...] y atherosclerosis of unspecified type of vessel, redding or graft OTH NONSPC ABN FINDNG RAD&OTH [...] tab every 6-8 hour s PRN HYDROCODONE-ACETAMINOPHEN 31522426599 Active Baltazar Childers MD Active NORTRIPTYLINE HCL 50 MG CAPS 1 every night for neuropathy 4 NORTRIPTYLINE HCL 84481270902 Active Baltazar Childers MD Acti ve GABAPENTIN 300 MG CAPS 1 three times a day GABAPE NTIN 54445168731 Active Baltazar Childers MD Active GABAPENTIN 300 MG CAPS 1 po qd x 2 days, then 1 po BID x 2 d ays, then 1 po TID GABAPENTIN 83276661735 No Longer Active Baltazar silverman MD Active TRAMADOL HCL 50 MG TABS 1 twice a day as needed for pain TRAMADOL HCL 68695974538 Active Baltazar Childers MD Active NAPROXEN 500 MG TABS 1 tablet by mouth twice daily NAPROXEN 78369709624 No Longer Active Baltazar Childers MD Active PROAIR HFA 108 (90 BASE) MCG/ACT AERS 2 puffs four times a d ay as needed ALBUTEROL SULFATE 43585223680 Active Baltazar Childers MD Active DEPO-TESTOSTERONE 200 MG/ML OIL as directed RUFINO TOSTERONE CYPIONATE 98187656594 No Longer Active Baltazar Childers MD Active LIPITOR 20 MG TABS Take one by mouth daily in evening ATORVASTATIN CALCIUM 70803000669 No Longer Active Baltazar Childers MD Activ e CRESTOR 10 MG TABS 1 by mouth every day R OSUVASTATIN CALCIUM 65521567119 No Longer Active Baltazar Childers MD Activ e PHENTERMINE HCL 37.5 MG TABS Take one by mouth daily 2 PHENTERMINE HCL 78158151083 No Longer Active Baltazar Childers MD Activ e ROBAXIN-750 750 MG TABS Take one by mouth daily ME THOCARBAMOL 24267767579 Active Baltazar Childers MD Active TIZANIDINE HCL 4 MG TABS 1 daily as needed for muscle spasm 2011 TIZANIDINE HCL 21130375672 No Longer Active Dawna Salazar RN Active ONETOUCH ULTRA BLUE STRP Test twice a day GLUCO SE BLOOD 54278297086 Active Baltazar Childers MD Active [id number] 50-325-40 MG TABS 1 four time s a day as needed for heacache [id number] 74032971968 Active Baltazar Childers MD Active SUMATRIPTAN SUCCINATE 100 MG TABS 1 tablet by mouth at onset of migraine as needed SUMATRIPTAN SUCCINATE 52940109514 Active Shireen Miller APRN Active LORATADINE 10 MG TABS Take one by mouth daily LORATADINE 00442269489 Active Brad Hughes Active FUROSEMIDE 40 MG TABS Take one by mouth daily FUROSEMIDE 56491609218 Active Shireen Miller APRN Active LISINOPRIL 20 MG TABS Take one by mouth daily at bedtime LISINOPRIL 55338369244 Active Shireen Miller APRN Active OMEPRAZOLE 20 MG CPDR Take one by mouth daily OMEPRAZOLE 76843331544 Active Shireen Miller APRN Active HYDROXYZINE HCL 25 MG TABS Take one by mouth daily HYDROXYZINE HCL 66415248789 Active Shireen Miller APRN Active GLIPIZIDE 10 MG TABS 1 tablet by mouth twice daily GLIPIZIDE 77978475605 Active Shireen Miller APRN Active ALPRAZOLAM 1 MG TABS 1 tablet by mouth daily at bedtime for restles s leg ALPRAZOLAM 16475366008 Active Baltazar Childers MD Active METFORMIN HCL 1000 MG TABS Take one by mouth twice daily METFORMIN HCL 09066634258 Active Shireen Miller APRN Active TIZANIDINE HCL 4 MG TABS 1 daily as needed for muscle spasm 2011 TIZANIDINE HCL 4 MG TABS 155143 TIZANIDINE HCL Inactiv e PHENTERMINE HCL 37.5 MG TABS Take one by mouth daily 2 PHENTERMINE HCL 37.5 MG TABS 668999 PHENTERMINE HCL Inactive CRESTOR 10 MG TABS 1 by mouth every day C RESTOR 10 MG TABS ROSUVASTATIN CALCIUM Inactive LIPITOR 20 MG TABS Take one by mouth daily in evening LIPITOR 20 MG TABS 492710 ATORVASTATIN CALCIUM Inactive DEPO-TESTOSTERONE 200 MG/ML OIL as directed 8 DEPO-TESTOSTERONE 200 MG/ML OIL 194615 TESTOSTERONE CYPIONATE Inactive NAPROXEN 500 MG TABS 1 tablet by mouth twice daily 201 07/27/22 NAPROXEN 500 MG TABS 127655 NAPROXEN Inactive GABAPENTIN 300 MG CAPS 1 po qd x 2 days, then 1 po BID x 2 d ays, then 1 po TID GABAPENTIN 300 MG CAPS 879861 GABAPENTIN Inact amie Immunizations Vaccine Administration Date Value Standard Floyd cription pneumococcal immunization administered Pneumovax 23 [CVX33] pneumococcal polysaccharide vaccine, 23 valent Seasonal influenza vaccine, injectable, containing preservative, for > 3 years old (Afluria, FluLaval, Fluzone, Fluvirin, Fluarix, Agriflu(>= 18 yo)) Fluzone (>3 yrs.) [[id number]] Influenza, seasonal, inject able Seasonal influenza vaccine, injectable, containing preservative, for > 3 years old (Afluria, FluLaval, Fluzone, Fluvirin, Fluarix, Agriflu(>= 18 yo)) Fluzone (>3 yrs.) [[id number]] Influenza, seasonal, inject able Vital Signs Date [...] C - Chemistry sodium, serum 140 mmol/L 003-875 6438/02/26 potassium, serum 5.3 mmol/L 3.5-5.2 chloride, serum [...] 0.39 mg/dL 0.00-1.00 cholesterol, serum 345 mg/dL 437-923 2330/08/26 triglyceride, serum, fasting 635 mg/dL 30-200 HDL [...] Panel - Chemistry sodium, serum 136 mmol/L 884-459 6491/01/06 potassium, serum 5.1 mmol/L 3.5-5.2 chloride, serum [...] Panel - Chemistry sodium, serum 139 mmol/L 990-921 0973/08/26 potassium, serum 5.8 mmol/L 3.5-5.2 chloride, serum 98 mmol/L 98-107 carbon dioxide, venous blood 33.0 mmol/L 21.0-32 .0 blood glucose 107 mg/dL 65-110 urea nitrogen, blood 26 mg/dL 7-18 creatinine, serum 1.80 mg/dL 0.60-1.30 calcium, serum 9.3 mg/dL 8.5-10.1 sodium, serum 138 mmol/L 975-262 8559/06/17 potassium, serum 4.9 mmol/L 3.5-5.2 chloride, serum [...] mg/dL Encounters Code Encounter Date Provider Facility CPT-80499 Level 4 Est. Patient 14:52:45 WELDER 2ND SHIFT Baltazar Childers MD [facility] CPT-54284 Level 4 Est. Patient 14:18:34 WELDER 2ND SHIFT Baltazar Childers MD [facility] CPT-09992 Level 4 Est. Patient 15:18:29 CDT Baltazar Childers MD [facility] CPT-35631 Level 3 Est. Patient 12:45:34 CDT Baltazar Childers MD [facility] CPT-52671 Level 3 Est. Patient 10:10:11 CDT Blatazar Childers MD [facility] CPT-81839 Level 3 Est. Patient 14:07:50 CDT Baltazar Childers MD [facility] CPT-23862 Level 4 Est. Patient 12:26:10 WELDER 2ND SHIFT Baltazar Childers MD [facility] CPT-61314 Level 4 Est. Patient 14:45:38 CDT Baltazar Childers MD [facility] CPT-51682 Level 4 New Patient 12:30:48 CDT Baltazar hinton MD [facility] Procedures Code Procedure Name Date Entry Date Standard Desc ription CPT-97715 First Vx Component - Ix admi n via ID IM or jet inj without physician counseling 15:17:19 WELDER 2ND SHIFT CPT-97828 Pneumovax 23 15:17:19 WELDER 2ND SHIFT CPT-44994 Pneumovax 14:52:45 WELDER 2ND SHIFT CPT-24319 Venipuncture Draw Fee 14:06:30 WELDER 2ND SHIFT CPT-000 Give Appropriate Flu Vaccine 14:18:34 WELDER 2ND SHIFT 2 CPT-43292 Administration single or combination vac cine inc oral 14:46:00 WELDER 2ND SHIFT CPT-71664 Influenza split virus > age 3 14:46:00 WELDER 2ND SHIFT CPT-OV Office Visit 19:13:16 CDT CPT-61760 Zostavax 18:41:56 CDT CPT-56556 Administration single or combination vac cine inc oral 12:56:39 CDT CPT-61763 Zoster Vaccine (Zostavax) 12:56:39 CDT 2012 CPT-00717 Venipuncture Draw Fee 10:58:57 CDT CPT-73798 Sono pelvis non OB uterus ovaries cervix 17:45:04 CDT CPT-68555 Sono retroperitoneal complete kidneys an d bladder 17:14:36 CDT CPT-OV Office Visit 14:59:38 WELDER 2ND SHIFT CPT-J1070 Depo Testosterone 100 mg 14:50:13 CDT 03/05 CPT-87885 Abx/Therapy Injection 14:50:13 CDT CPT-62840 Administration single or combination vac cine inc oral 14:34:43 CDT CPT-49426 Influenza split virus > age 3 14:34:43 CDT CPT-J1070 Depo Testosterone 100 mg 17:37:13 CDT 01/11 CPT-25690 Abx/Therapy Injection 17:37:13 CDT CPT-09031 Venipuncture Draw Fee 16:30:13 CDT CPT-97741 Venipuncture Draw Fee 16:29:43 CDT CPT-J1070 Depo Testosterone 100 mg 14:45:38 CDT 01/11
--- OUTSIDE RECORDS SUMMARY | 2019-10-27 14:01 | XMS REPORT | Clinical Summary ---
Author Author Admin, Elba Lance [facility] Address Unknown Phone Allergies, Adverse [...] y atherosclerosis of unspecified type of vessel, [place] or graft OTH NONSPC [...] tab every 6-8 hour s PRN HYDROCODONE-ACETAMINOPHEN 38436152400 Active Baltazar Childers MD Active NORTRIPTYLINE HCL 50 MG CAPS 1 every night for neuropathy 4 NORTRIPTYLINE HCL 52120116335 Active Baltazar Childers MD Acti ve GABAPENTIN 300 MG CAPS 1 three times a day GABAPE NTIN 52469606516 Active Baltazar Childers MD Active GABAPENTIN 300 MG CAPS 1 po qd x 2 days, then 1 po BID x 2 d ays, then 1 po TID GABAPENTIN 34645707338 No Longer Active Baltazar silverman MD Active TRAMADOL HCL 50 MG TABS 1 twice a day as needed for pain TRAMADOL HCL 78931797502 Active Baltazar Childers MD Active NAPROXEN 500 MG TABS 1 tablet by mouth twice daily NAPROXEN 05406429441 No Longer Active Baltazar Childers MD Active PROAIR HFA 108 (90 BASE) MCG/ACT AERS 2 puffs four times a d ay as needed ALBUTEROL SULFATE 95659762855 Active Baltazar Childers MD Active DEPO-TESTOSTERONE 200 MG/ML OIL as directed RUFINO TOSTERONE CYPIONATE 28796940285 No Longer Active Baltazar Childers MD Active LIPITOR 20 MG TABS Take one by mouth daily in evening ATORVASTATIN CALCIUM 63175098908 No Longer Active Baltazar Childers MD Activ e CRESTOR 10 MG TABS 1 by mouth every day R OSUVASTATIN CALCIUM 78144420094 No Longer Active Baltazar Childers MD Activ e PHENTERMINE HCL 37.5 MG TABS Take one by mouth daily 2 PHENTERMINE HCL 97020624519 No Longer Active Baltazar Childers MD Activ e ROBAXIN-750 750 MG TABS Take one by mouth daily ME THOCARBAMOL 25714179816 Active Baltazar Childers MD Active TIZANIDINE HCL 4 MG TABS 1 daily as needed for muscle spasm 2011 TIZANIDINE HCL 04498508897 No Longer Active Dawna Salazar RN Active ONETOUCH ULTRA BLUE STRP Test twice a day GLUCO SE BLOOD 97361818091 Active Baltazar Childers MD Active MOVGKRGHYR-OODU-IEEWGIEK 50-325-40 MG TABS 1 four time s a day as needed for heacache [id number] 55740802192 Active Baltazar Childers MD Active SUMATRIPTAN SUCCINATE 100 MG TABS 1 tablet by mouth at onset of migraine as needed SUMATRIPTAN SUCCINATE 20636604152 Active Shireen Miller APRN Active LORATADINE 10 MG TABS Take one by mouth daily LORATADINE 70860764478 Active Brad Hughes Active FUROSEMIDE 40 MG TABS Take one by mouth daily FUROSEMIDE 08195548307 Active Shireen Miller APRN Active LISINOPRIL 20 MG TABS Take one by mouth daily at bedtime LISINOPRIL 37586804371 Active Shireen Miller APRN Active OMEPRAZOLE 20 MG CPDR Take one by mouth daily OMEPRAZOLE 73100221572 Active Shireen Miller APRN Active HYDROXYZINE HCL 25 MG TABS Take one by mouth daily HYDROXYZINE HCL 83325384322 Active Shireen Miller APRN Active GLIPIZIDE 10 MG TABS 1 tablet by mouth twice daily GLIPIZIDE 76932794215 Active Shireen Miller APRN Active ALPRAZOLAM 1 MG TABS 1 tablet by mouth daily at bedtime for restles s leg ALPRAZOLAM 81138418305 Active Baltazar Childers MD Active METFORMIN HCL 1000 MG TABS Take one by mouth twice daily METFORMIN HCL 48320207915 Active Shireen Miller APRN Active TIZANIDINE HCL 4 MG TABS 1 daily as needed for muscle spasm 2011 TIZANIDINE HCL 4 MG TABS 456880 TIZANIDINE HCL Inactiv e PHENTERMINE HCL 37.5 MG TABS Take one by mouth daily 2 PHENTERMINE HCL 37.5 MG TABS 334869 PHENTERMINE HCL Inactive CRESTOR 10 MG TABS 1 by mouth every day C RESTOR 10 MG TABS ROSUVASTATIN CALCIUM Inactive LIPITOR 20 MG TABS Take one by mouth daily in evening LIPITOR 20 MG TABS 864523 ATORVASTATIN CALCIUM Inactive DEPO-TESTOSTERONE 200 MG/ML OIL as directed 8 DEPO-TESTOSTERONE 200 MG/ML OIL 422356 TESTOSTERONE CYPIONATE Inactive NAPROXEN 500 MG TABS 1 tablet by mouth twice daily 201 07/27/22 NAPROXEN 500 MG TABS 403446 NAPROXEN Inactive GABAPENTIN 300 MG CAPS 1 po qd x 2 days, then 1 po BID x 2 d ays, then 1 po TID GABAPENTIN 300 MG CAPS 668703 GABAPENTIN Inact amie Immunizations Vaccine Administration Date Value Standard Floyd cription pneumococcal immunization administered Pneumovax 23 [CVX33] pneumococcal polysaccharide vaccine, 23 valent Seasonal influenza vaccine, injectable, containing preservative, for > 3 years old (Afluria, FluLaval, Fluzone, Fluvirin, Fluarix, Agriflu(>= 18 yo)) Fluzone (>3 yrs.) [[id number]] Influenza, seasonal, inject able Seasonal influenza vaccine, injectable, containing preservative, for > 3 years old (Afluria, FluLaval, Fluzone, Fluvirin, Fluarix, Agriflu(>= 18 yo)) Fluzone (>3 yrs.) [[id number]] Influenza, seasonal, inject able Vital Signs Date [...] Outside labs entered on flowsheet - Chemistry blood glucose 182 mg/dL creatinine, serum 2.0 mg/dL aspartate aminotransferase (SGOT), serum 20 U/L alanine aminotransferase (SGPT), serum 29 U/L bilirubin, serum, total 7.2 mg/dL alkaline phosphatase, serum 38 U/L calcium, serum 10.3 mg/dL urea nitrogen, blood 25 mg/dL carbon dioxide, venous blood 25 mmol/L chloride, serum 100 mmol/L potassium, serum 4.2 mmol/L sodium, serum 140 mmol/L Chart Maintenance: Outside labs entered on flowsheet - Hematology red blood cell distribution width 14.0 % mean corpuscular hemoglobin, RBC 31.1 pg mean corpuscular volume, RBC 96 fL hematocrit, blood 33.7 % hemoglobin, blood 10.9 g/dL Lab Report: Basic Metabolic Panel, HGBA1 C - Chemistry blood glucose 151 mg/dL 65-110 urea nitrogen, blood 19 mg/dL 7-18 creatinine, serum 1.60 mg/dL 0.60-1.30 hemoglobin A1C, blood, as % of total hemoglobin 7.9 % 4.3-6.0 calcium, serum 8.7 mg/dL 8.5-10.1 sodium, serum 140 mmol/L 322-826 2377/02/26 potassium, serum 5.3 mmol/L 3.5-5.2 chloride, serum 101 mmol/L 98-107 carbon dioxide, venous blood 36.9 mmol/L 21.0-32 .0 Lab Report: CBC, Basic Metabolic Panel, HGBA1C - Chemistry chloride, serum 98 mmol/L 98-107 carbon dioxide, venous blood 28.8 mmol/L 21.0-32 .0 blood glucose 116 mg/dL 65-110 calcium, serum 9.2 mg/dL 8.5-10.1 urea nitrogen, blood 24 mg/dL 7-18 creatinine, serum 2.00 mg/dL 0.60-1.30 hemoglobin A1C, blood, as % of total hemoglobin 7.1 % 4.3-6.0 sodium, serum 138 mmol/L 716-595 0424/05/23 potassium, serum 4.9 mmol/L 3.5-5.2 Lab Report: CBC, Basic Metabolic Panel, HGBA1C [...] 0.39 mg/dL 0.00-1.00 cholesterol, serum 345 mg/dL 006-520 2477/08/26 triglyceride, serum, fasting 635 mg/dL 30-200 HDL [...] Panel - Chemistry sodium, serum 136 mmol/L 210-298 4200/01/06 potassium, serum 5.1 mmol/L 3.5-5.2 chloride, serum [...] Panel - Chemistry sodium, serum 139 mmol/L 214-119 7774/08/26 potassium, serum 5.8 mmol/L 3.5-5.2 chloride, serum 98 mmol/L 98-107 carbon dioxide, venous blood 33.0 mmol/L 21.0-32 .0 blood glucose 107 mg/dL 65-110 urea nitrogen, blood 26 mg/dL 7-18 creatinine, serum 1.80 mg/dL 0.60-1.30 calcium, serum 9.3 mg/dL 8.5-10.1 potassium, serum 4.9 mmol/L 3.5-5.2 chloride, serum 100 mmol/L 98-107 carbon dioxide, venous blood 28.1 mmol/L 21.0-32 .0 blood glucose 108 mg/dL 65-110 sodium, serum 138 mmol/L 446-343 4310/06/17 creatinine, serum 1.60 mg/dL 0.60-1.30 calcium, serum 9.5 mg/dL 8.5-10.1 urea nitrogen, blood 20 mg/dL 7-18 Lab Report: UADIP W/MICRO, AUTO - Chemis try protein, total urine random Negative mg/dL Negative RBC, urine, dipstick Negative Negative RBC, urine, dipstick Negative Negative protein, total urine random Negative mg/dL Negative Lab Report: UADIP W/MICRO, AUTO - Urinal ysis glucose, urine, semiquantitative Negative Neg ative pH, urine, semiquantitative 6.0 5.0-8.5 urobilinogen, urine, semiquantitative (dipstick) 0.2 Normal leukocyte esterase, urine, by dipstick Negative Negative nitrite, urine, semiquantitative Negative Neg ative urobilinogen, urine, semiquantitative (dipstick) 0.2 Normal leukocyte esterase, urine, by dipstick Negative Negative nitrite, urine, semiquantitative Negative Neg ative appearance, urine Clear Clear specific gravity, urine 1.010 1.000-1.030 glucose, urine, semiquantitative Negative Neg ative ketones, urine, by test strip Negative Negati ve bilirubin, urine Negative Negative urine color Straw Colorless;Lightyellow;St raw;Yellow ketones, urine, [...] mg/dL Encounters Code Encounter Date Provider Facility CPT-22538 Level 4 Est. Patient 14:52:45 SALES RESEARCH ANALYST Baltazar Childers MD [facility] CPT-78038 Level 4 Est. Patient 14:18:34 SALES RESEARCH ANALYST Baltazar Childers MD [facility] CPT-33931 Level 4 Est. Patient 15:18:29 CDT Baltazar Childers MD [facility] CPT-73005 Level 3 Est. Patient 12:45:34 CDT Baltazar Childers MD [facility] CPT-86407 Level 3 Est. Patient 10:10:11 CDT Baltazar Childers MD [facility] CPT-09313 Level 3 Est. Patient 14:07:50 CDT Baltazar Childers MD [facility] CPT-27136 Level 4 Est. Patient 12:26:10 SALES RESEARCH ANALYST Baltazar Childers MD [facility] CPT-17826 Level 4 Est. Patient 14:45:38 CDT Baltazar Childers MD [facility] CPT-87108 Level 4 New Patient 12:30:48 CDT Baltazar hinton MD [facility] Procedures Code Procedure Name Date Entry Date Standard Desc ription CPT-42605 First Vx Component - Ix admi n via ID IM or jet inj without physician counseling 15:17:19 SALES RESEARCH ANALYST CPT-40564 Pneumovax 23 15:17:19 SALES RESEARCH ANALYST CPT-18714 Pneumovax 14:52:45 SALES RESEARCH ANALYST CPT-93225 Venipuncture Draw Fee 14:06:30 SALES RESEARCH ANALYST CPT-000 Give Appropriate Flu Vaccine 14:18:34 SALES RESEARCH ANALYST 2 CPT-59131 Administration single or combination vac cine inc oral 14:46:00 SALES RESEARCH ANALYST CPT-37854 Influenza split virus > age 3 14:46:00 SALES RESEARCH ANALYST CPT-OV Office Visit 19:13:16 CDT CPT-94031 Zostavax 18:41:56 CDT CPT-79499 Administration single or combination vac cine inc oral 12:56:39 CDT CPT-40315 Zoster Vaccine (Zostavax) 12:56:39 CDT 2012 CPT-45709 Venipuncture Draw Fee 10:58:57 CDT CPT-78230 Sono pelvis non OB uterus ovaries cervix 17:45:04 CDT CPT-77603 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
--- OUTSIDE RECORDS SUMMARY | 2019-10-27 14:01 | XMS REPORT | Clinical Summary ---
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 Benign neoplasm of colon PERIPHERAL NEUROPATHY [...] y atherosclerosis of unspecified type of vessel, [place] or graft OTH NONSPC ABN FINDNG RAD&OTH [...] tab every 6-8 hour s PRN HYDROCODONE-ACETAMINOPHEN 36377167118 Active Baltazar Childers MD Active NORTRIPTYLINE HCL 50 MG CAPS 1 every night for neuropathy 4 NORTRIPTYLINE HCL 21397170661 Active Baltazar Childers MD Acti ve GABAPENTIN 300 MG CAPS 1 three times a day GABAPE NTIN 47261724530 Active Baltazar Childers MD Active GABAPENTIN 300 MG CAPS 1 po qd x 2 days, then 1 po BID x 2 d ays, then 1 po TID GABAPENTIN 52149481445 No Longer Active Baltazar silverman MD Active TRAMADOL HCL 50 MG TABS 1 twice a day as needed for pain TRAMADOL HCL 49775937360 Active Baltazar Childers MD Active NAPROXEN 500 MG TABS 1 tablet by mouth twice daily NAPROXEN 32676545023 No Longer Active Baltazar Childers MD Active PROAIR HFA 108 (90 BASE) MCG/ACT AERS 2 puffs four times a d ay as needed ALBUTEROL SULFATE 24519986376 Active Baltazar Childers MD Active DEPO-TESTOSTERONE 200 MG/ML OIL as directed RUFINO TOSTERONE CYPIONATE 31704411463 No Longer Active Baltazar Childers MD Active LIPITOR 20 MG TABS Take one by mouth daily in evening ATORVASTATIN CALCIUM 03020776620 No Longer Active Baltazar Childers MD Activ e CRESTOR 10 MG TABS 1 by mouth every day R OSUVASTATIN CALCIUM 77511623984 No Longer Active Baltazar Childers MD Activ e PHENTERMINE HCL 37.5 MG TABS Take one by mouth daily 2 PHENTERMINE HCL 79997423902 No Longer Active Baltazar Childers MD Activ e ROBAXIN-750 750 MG TABS Take one by mouth daily ME THOCARBAMOL 81607205088 Active Baltazar Childers MD Active TIZANIDINE HCL 4 MG TABS 1 daily as needed for muscle spasm 2011 TIZANIDINE HCL 08595402894 No Longer Active Dawna Salazar RN Active ONETOUCH ULTRA BLUE STRP Test twice a day GLUCO SE BLOOD 73487374917 Active Baltazar Childers MD Active [id number] 50-325-40 MG TABS 1 four time s a day as needed for heacache [id number] 44895602565 Active Baltazar Childers MD Active SUMATRIPTAN SUCCINATE 100 MG TABS 1 tablet by mouth at onset of migraine as needed SUMATRIPTAN SUCCINATE 66597032830 Active Baltazar bynum MD Active LORATADINE 10 MG TABS Take one by mouth daily LORATADINE 20918279895 Active Baltazar Childers MD Active FUROSEMIDE 40 MG TABS Take one by mouth daily FUROSEMIDE 81437154582 Active Baltazar Childers MD Active LISINOPRIL 20 MG TABS Take one by mouth daily at bedtime LISINOPRIL 72662997270 Active Baltazar Childers MD Active OMEPRAZOLE 20 MG CPDR Take one by mouth daily OMEPRAZOLE 90997398802 Active Baltazar Childers MD Active HYDROXYZINE HCL 25 MG TABS Take one by mouth daily HYDROXYZINE HCL 89578908861 Active Baltazar Childers MD Active GLIPIZIDE 10 MG TABS 1 tablet by mouth twice daily GLIPIZIDE 18549207112 Active Baltazar Childers MD Active ALPRAZOLAM 1 MG TABS 1 tablet by mouth daily at bedtime for restles s leg ALPRAZOLAM 72440476762 Active Baltazar Childers MD Active METFORMIN HCL 1000 MG TABS Take one by mouth twice daily METFORMIN HCL 32721118334 Active Baltazar Childers MD Active TIZANIDINE HCL 4 MG TABS 1 daily as needed for muscle spasm 2011 TIZANIDINE HCL 4 MG TABS 980376 TIZANIDINE HCL Inactiv e PHENTERMINE HCL 37.5 MG TABS Take one by mouth daily 2 PHENTERMINE HCL 37.5 MG TABS 822197 PHENTERMINE HCL Inactive CRESTOR 10 MG TABS 1 by mouth every day C RESTOR 10 MG TABS ROSUVASTATIN CALCIUM Inactive LIPITOR 20 MG TABS Take one by mouth daily in evening LIPITOR 20 MG TABS 111129 ATORVASTATIN CALCIUM Inactive DEPO-TESTOSTERONE 200 MG/ML OIL as directed 8 DEPO-TESTOSTERONE 200 MG/ML OIL 487449 TESTOSTERONE CYPIONATE Inactive NAPROXEN 500 MG TABS 1 tablet by mouth twice daily 201 07/27/22 NAPROXEN 500 MG TABS 943466 NAPROXEN Inactive GABAPENTIN 300 MG CAPS 1 po qd x 2 days, then 1 po BID x 2 d ays, then 1 po TID GABAPENTIN 300 MG CAPS 007525 GABAPENTIN Inact amie Immunizations Vaccine Administration Date Value Standard Floyd cription pneumococcal immunization administered Pneumovax 23 [CVX33] pneumococcal polysaccharide vaccine, 23 valent Seasonal influenza vaccine, injectable, containing preservative, for > 3 years old (Afluria, FluLaval, Fluzone, Fluvirin, Fluarix, Agriflu(>= 18 yo)) Fluzone (>3 yrs.) [[id number]] Influenza, seasonal, inject able Seasonal influenza vaccine, injectable, containing preservative, for > 3 years old (Afluria, FluLaval, Fluzone, Fluvirin, Fluarix, Agriflu(>= 18 yo)) Fluzone (>3 yrs.) [[id number]] Influenza, seasonal, inject able Vital Signs Date [...] C - Chemistry sodium, serum 140 mmol/L 392-012 5895/02/26 potassium, serum 5.3 mmol/L 3.5-5.2 chloride, serum [...] 0.39 mg/dL 0.00-1.00 cholesterol, serum 345 mg/dL 145-635 2567/08/26 triglyceride, serum, fasting 635 mg/dL 30-200 HDL [...] Panel - Chemistry sodium, serum 136 mmol/L 926-152 6228/01/06 potassium, serum 5.1 mmol/L 3.5-5.2 chloride, serum [...] Panel - Chemistry sodium, serum 139 mmol/L 546-769 3470/08/26 potassium, serum 5.8 mmol/L 3.5-5.2 chloride, serum [...] mg/dL Encounters Code Encounter Date Provider Facility CPT-35122 Level 4 Est. Patient 12:20:13 CDT Baltazar Childers MD [facility] CPT-31682 Level 4 Est. Patient 14:52:45 REGISTERED MIDWIFE Baltazar Childers MD [facility] CPT-68625 Level 4 Est. Patient 14:18:34 REGISTERED MIDWIFE Baltazar Childers MD [facility] CPT-51715 Level 4 Est. Patient 15:18:29 CDT Baltazar Childers MD [facility] CPT-40897 Level 3 Est. Patient 12:45:34 CDT Baltazar Childers MD [facility] CPT-32094 Level 3 Est. Patient 10:10:11 CDT Baltazar Childers MD [facility] CPT-89518 Level 3 Est. Patient 14:07:50 CDT Baltazar Childers MD [facility] CPT-85193 Level 4 Est. Patient 12:26:10 REGISTERED MIDWIFE Baltazar Childers MD [facility] CPT-07121 Level 4 Est. Patient 14:45:38 CDT Baltazar Childers MD [facility] CPT-96752 Level 4 New Patient 12:30:48 CDT Baltazar hinton MD [facility] Procedures Code Procedure Name Date Entry Date Standard Desc ription CPT-17954 First Vx Component - Ix admi n via ID IM or jet inj without physician counseling 15:17:19 REGISTERED MIDWIFE CPT-77866 Pneumovax 15:17:19 REGISTERED MIDWIFE CPT-76415 Pneumovax 14:52:45 REGISTERED MIDWIFE CPT-33215 Venipuncture Draw Fee 14:06:30 REGISTERED MIDWIFE CPT-000 Give Appropriate Flu Vaccine 14:18:34 REGISTERED MIDWIFE 2 CPT-31987 Administration single or combination vac cine inc oral 14:46:00 REGISTERED MIDWIFE CPT-84286 Influenza split virus > age 3 14:46:00 REGISTERED MIDWIFE CPT-OV Office Visit 19:13:16 CDT CPT-50070 Zostavax 18:41:56 CDT CPT-24334 Administration single or combination vac cine inc oral 12:56:39 CDT CPT-93115 Zoster Vaccine (Zostavax) 12:56:39 CDT 2012 CPT-77311 Venipuncture Draw Fee 10:58:57 CDT CPT-32087 Sono pelvis non OB uterus ovaries cervix 17:45:04 CDT CPT-76551 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
--- OUTSIDE RECORDS SUMMARY | 2019-10-27 14:01 | XMS REPORT | Clinical Summary ---
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 Benign neoplasm of colon PERIPHERAL NEUROPATHY 356.9 [...] y atherosclerosis of unspecified type of vessel, [place] [...] tab every 6-8 hour s PRN HYDROCODONE-ACETAMINOPHEN 06989427178 Active Baltazar Childers MD Active NORTRIPTYLINE HCL 50 MG CAPS 1 every night for neuropathy 4 NORTRIPTYLINE HCL 04623399184 Active Amaris Jason MD PhD Act amie GABAPENTIN 300 MG CAPS 1 three times a day GABAPE NTIN 51396730284 Active Baltazar Childers MD Active GABAPENTIN 300 MG CAPS 1 po qd x 2 days, then 1 po BID x 2 d ays, then 1 po TID GABAPENTIN 21060362902 No Longer Active Baltazar silverman MD Active TRAMADOL HCL 50 MG TABS 1 twice a day as needed for pain TRAMADOL HCL 26650095506 Active Baltazar Childers MD Active NAPROXEN 500 MG TABS 1 tablet by mouth twice daily NAPROXEN 46811750077 No Longer Active Baltazar Childers MD Active PROAIR HFA 108 (90 BASE) MCG/ACT AERS 2 puffs four times a d ay as needed ALBUTEROL SULFATE 89669944093 Active Baltazar Childers MD Active DEPO-TESTOSTERONE 200 MG/ML OIL as directed RUFINO TOSTERONE CYPIONATE 15646028204 No Longer Active Baltazar Childers MD Active LIPITOR 20 MG TABS Take one by mouth daily in evening ATORVASTATIN CALCIUM 36015146533 No Longer Active Baltazar Childers MD Activ e CRESTOR 10 MG TABS 1 by mouth every day R OSUVASTATIN CALCIUM 40384660636 No Longer Active Baltazar Childers MD Activ e PHENTERMINE HCL 37.5 MG TABS Take one by mouth daily 2 PHENTERMINE HCL 94249031412 No Longer Active Baltazar Childers MD Activ e ROBAXIN-750 750 MG TABS Take one by mouth daily ME THOCARBAMOL 49797608176 Active Baltazar Childers MD Active TIZANIDINE HCL 4 MG TABS 1 daily as needed for muscle spasm 2011 TIZANIDINE HCL 65888618920 No Longer Active Dawna Salazar RN Active ONETOUCH ULTRA BLUE STRP Test twice a day GLUCO SE BLOOD 98375254529 Active Baltazar Childers MD Active TBDHACRSAF-UAME-[id number] 50-325-40 MG TABS 1 four time s a day as needed for heacache [id number]-IULN-[id number] 58567574854 Active Baltazar Childers MD Active SUMATRIPTAN SUCCINATE 100 MG TABS 1 tablet by mouth at onset of migraine as needed SUMATRIPTAN SUCCINATE 40519738284 Active Baltazar bynum MD Active LORATADINE 10 MG TABS Take one by mouth daily LORATADINE 16606897429 Active Baltazar Childers MD Active FUROSEMIDE 40 MG TABS Take one by mouth daily FUROSEMIDE 42994635560 Active Baltazar Childers MD Active LISINOPRIL 20 MG TABS Take one by mouth daily at bedtime LISINOPRIL 55930822146 Active Baltazar Childers MD Active OMEPRAZOLE 20 MG CPDR Take one by mouth daily OMEPRAZOLE 03216454869 Active Baltazar Childers MD Active HYDROXYZINE HCL 25 MG TABS Take one by mouth daily HYDROXYZINE HCL 40334596244 Active Baltazar Childers MD Active GLIPIZIDE 10 MG TABS 1 tablet by mouth twice daily GLIPIZIDE 15344912763 Active Baltazar Childers MD Active ALPRAZOLAM 1 MG TABS 1 tablet by mouth daily at bedtime for restles s leg ALPRAZOLAM 72949230318 Active Baltazar Childers MD Active METFORMIN HCL 1000 MG TABS Take one by mouth twice daily METFORMIN HCL 04501378001 Active Baltazar Childers MD Active TIZANIDINE HCL 4 MG TABS 1 daily as needed for muscle spasm 2011 TIZANIDINE HCL 4 MG TABS 578686 TIZANIDINE HCL Inactiv e PHENTERMINE HCL 37.5 MG TABS Take one by mouth daily 2 PHENTERMINE HCL 37.5 MG TABS 307523 PHENTERMINE HCL Inactive CRESTOR 10 MG TABS 1 by mouth every day C RESTOR 10 MG TABS ROSUVASTATIN CALCIUM Inactive LIPITOR 20 MG TABS Take one by mouth daily in evening LIPITOR 20 MG TABS 419721 ATORVASTATIN CALCIUM Inactive DEPO-TESTOSTERONE 200 MG/ML OIL as directed 8 DEPO-TESTOSTERONE 200 MG/ML OIL 462076 TESTOSTERONE CYPIONATE Inactive NAPROXEN 500 MG TABS 1 tablet by mouth twice daily 201 07/27/22 NAPROXEN 500 MG TABS 347733 NAPROXEN Inactive GABAPENTIN 300 MG CAPS 1 po qd x 2 days, then 1 po BID x 2 d ays, then 1 po TID GABAPENTIN 300 MG CAPS 688182 GABAPENTIN Inact amie Immunizations Vaccine Administration Date Value Standard Floyd cription pneumococcal immunization administered Pneumovax 23 [CVX33] pneumococcal polysaccharide vaccine, 23 valent Seasonal influenza vaccine, injectable, containing preservative, for > 3 years old (Afluria, FluLaval, Fluzone, Fluvirin, Fluarix, Agriflu(>= 18 yo)) Fluzone (>3 yrs.) [[id number]] Influenza, seasonal, inject able Seasonal influenza vaccine, injectable, containing preservative, for > 3 years old (Afluria, FluLaval, Fluzone, Fluvirin, Fluarix, Agriflu(>= 18 yo)) Fluzone (>3 yrs.) [CCL524] Influenza, seasonal, inject able Vital Signs Date [...] C - Chemistry sodium, serum 140 mmol/L 721-454 3253/02/26 potassium, serum 5.3 mmol/L 3.5-5.2 chloride, serum [...] Panel - Chemistry sodium, serum 136 mmol/L 363-762 3476/01/06 potassium, serum 5.1 mmol/L 3.5-5.2 chloride, serum [...] mg/g mg/g{creat} 0-29 cholesterol, serum 319 mg/dL 506-985 1278/08/21 triglyceride, serum, fasting 546 mg/dL 30-200 HDL cholesterol, serum 39 mg/dL 32-96 LDL cholesterol, serum 167.00 mg/dL 5.00-130.00 hemoglobin A1C, blood, as % of total hemoglobin 7.7 % 4.3-6.0 sodium, serum 138 mmol/L 955-606 5523/08/21 potassium, serum 4.3 mmol/L 3.5-5.2 chloride, serum [...] mg/dL Encounters Code Encounter Date Provider Facility CPT-56793 Level 4 Est. Patient 12:20:13 CDT Baltazar Childers MD [facility] CPT-88256 Level 4 Est. Patient 14:52:45 SAFETY INSPECTOR Baltazar Childers MD [facility] CPT-24175 Level 4 Est. Patient 14:18:34 SAFETY INSPECTOR Baltazar Childers MD [facility] CPT-88505 Level 4 Est. Patient 15:18:29 CDT Baltazar Childers MD [facility] CPT-89945 Level 3 Est. Patient 12:45:34 CDT Baltazar Childers MD [facility] CPT-10376 Level 3 Est. Patient 10:10:11 CDT Baltazar Childers MD [facility] CPT-11056 Level 3 Est. Patient 14:07:50 CDT Baltazar Childers MD [facility] CPT-63806 Level 4 Est. Patient 12:26:10 SAFETY INSPECTOR Baltazar Childers MD [facility] CPT-96720 Level 4 Est. Patient 14:45:38 CDT Baltazar Childers MD [facility] CPT-91907 Level 4 New Patient 12:30:48 CDT Baltazar hinton MD [facility] Procedures Code Procedure Name Date Entry Date Standard Desc ription CPT-77556 Fluzone Quadrivalent Intramuscular Suspe nsion 0.5 ML 10:49:13 CDT CPT-52587 First Vx Component - Ix admi n via ID IM or jet inj without physician counseling 15:17:19 SAFETY INSPECTOR CPT-97213 Pneumovax 23 15:17:19 SAFETY INSPECTOR CPT-35336 Pneumovax 14:52:45 SAFETY INSPECTOR CPT-33950 Venipuncture Draw Fee 14:06:30 SAFETY INSPECTOR CPT-000 Give Appropriate Flu Vaccine 14:18:34 SAFETY INSPECTOR 2 CPT-53903 Administration single or combination vac cine inc oral 14:46:00 SAFETY INSPECTOR CPT-66177 Influenza split virus > age 3 14:46:00 SAFETY INSPECTOR CPT-OV Office Visit 19:13:16 CDT CPT-81470 Zostavax 18:41:56 CDT CPT-10332 Administration single or combination vac cine inc oral 12:56:39 CDT CPT-86682 Zoster Vaccine (Zostavax) 12:56:39 CDT 2012 CPT-73347 Venipuncture Draw Fee 10:58:57 CDT CPT-38206 Sono pelvis non OB uterus ovaries cervix 17:45:04 CDT CPT-07864 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
--- OUTSIDE RECORDS SUMMARY | 2019-10-27 14:02 | XMS REPORT | Clinical Summary ---
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 Benign neoplasm of colon PERIPHERAL [...] y atherosclerosis of unspecified type of vessel, [place] [...] tab every 6-8 hour s PRN HYDROCODONE-ACETAMINOPHEN 37931660651 Active Baltazar Childers MD Active NORTRIPTYLINE HCL 50 MG CAPS 1 every night for neuropathy 4 NORTRIPTYLINE HCL 70475481885 Active Baltazar Childers MD Acti ve GABAPENTIN 300 MG CAPS 1 three times a day GABAPE NTIN 39863247699 Active Baltazar Childers MD Active GABAPENTIN 300 MG CAPS 1 po qd x 2 days, then 1 po BID x 2 d ays, then 1 po TID GABAPENTIN 75010299287 No Longer Active Baltazar silverman MD Active TRAMADOL HCL 50 MG TABS 1 twice a day as needed for pain TRAMADOL HCL 94807908592 Active Baltazar Childers MD Active NAPROXEN 500 MG TABS 1 tablet by mouth twice daily NAPROXEN 07001798321 No Longer Active Baltazar Childers MD Active PROAIR HFA 108 (90 BASE) MCG/ACT AERS 2 puffs four times a d ay as needed ALBUTEROL SULFATE 31509443425 Active Baltazar Childers MD Active DEPO-TESTOSTERONE 200 MG/ML OIL as directed RUFINO TOSTERONE CYPIONATE 45760967269 No Longer Active Baltazar Childers MD Active LIPITOR 20 MG TABS Take one by mouth daily in evening ATORVASTATIN CALCIUM 10390858727 No Longer Active Baltazar Childers MD Activ e CRESTOR 10 MG TABS 1 by mouth every day R OSUVASTATIN CALCIUM 65625313560 No Longer Active Baltazar Childers MD Activ e PHENTERMINE HCL 37.5 MG TABS Take one by mouth daily 2 PHENTERMINE HCL 56639130369 No Longer Active Baltazar Childers MD Activ e ROBAXIN-750 750 MG TABS Take one by mouth daily ME THOCARBAMOL 51164077604 Active Baltazar Childers MD Active TIZANIDINE HCL 4 MG TABS 1 daily as needed for muscle spasm 2011 TIZANIDINE HCL 49593125664 No Longer Active Dawna Salazar RN Active ONETOUCH ULTRA BLUE STRP Test twice a day GLUCO SE BLOOD 74503065688 Active Baltazar Childers MD Active [id number]-ZACL-[id number] 50-325-40 MG TABS 1 four time s a day as needed for heacache [id number] 26319944221 Active Baltazar Childers MD Active SUMATRIPTAN SUCCINATE 100 MG TABS 1 tablet by mouth at onset of migraine as needed SUMATRIPTAN SUCCINATE 81060458183 Active Baltazar bynum MD Active LORATADINE 10 MG TABS Take one by mouth daily LORATADINE 58787806104 Active Baltazar Childers MD Active FUROSEMIDE 40 MG TABS Take one by mouth daily FUROSEMIDE 71571329654 Active Baltazar Childers MD Active LISINOPRIL 20 MG TABS Take one by mouth daily at bedtime LISINOPRIL 33698480461 Active Baltazar Childers MD Active OMEPRAZOLE 20 MG CPDR Take one by mouth daily OMEPRAZOLE 65735314030 Active Baltazar Childers MD Active HYDROXYZINE HCL 25 MG TABS Take one by mouth daily HYDROXYZINE HCL 66259538748 Active Baltazar Childers MD Active GLIPIZIDE 10 MG TABS 1 tablet by mouth twice daily GLIPIZIDE 97396602923 Active Baltazar Childers MD Active ALPRAZOLAM 1 MG TABS 1 tablet by mouth daily at bedtime for restles s leg ALPRAZOLAM 08006761079 Active Baltazar Childers MD Active METFORMIN HCL 1000 MG TABS Take one by mouth twice daily METFORMIN HCL 91988967548 Active Baltazar Childers MD Active TIZANIDINE HCL 4 MG TABS 1 daily as needed for muscle spasm 2011 TIZANIDINE HCL 4 MG TABS 849266 TIZANIDINE HCL Inactiv e PHENTERMINE HCL 37.5 MG TABS Take one by mouth daily 2 PHENTERMINE HCL 37.5 MG TABS 567313 PHENTERMINE HCL Inactive CRESTOR 10 MG TABS 1 by mouth every day C RESTOR 10 MG TABS ROSUVASTATIN CALCIUM Inactive LIPITOR 20 MG TABS Take one by mouth daily in evening LIPITOR 20 MG TABS 710687 ATORVASTATIN CALCIUM Inactive DEPO-TESTOSTERONE 200 MG/ML OIL as directed 8 DEPO-TESTOSTERONE 200 MG/ML OIL 331290 TESTOSTERONE CYPIONATE Inactive NAPROXEN 500 MG TABS 1 tablet by mouth twice daily 201 07/27/22 NAPROXEN 500 MG TABS 339732 NAPROXEN Inactive GABAPENTIN 300 MG CAPS 1 po qd x 2 days, then 1 po BID x 2 d ays, then 1 po TID GABAPENTIN 300 MG CAPS 370320 GABAPENTIN Inact amie Immunizations Vaccine Administration Date Value Standard Floyd cription pneumococcal immunization administered Pneumovax 23 [CVX33] pneumococcal polysaccharide vaccine, 23 valent Seasonal influenza vaccine, injectable, containing preservative, for > 3 years old (Afluria, FluLaval, Fluzone, Fluvirin, Fluarix, Agriflu(>= 18 yo)) Fluzone (>3 yrs.) [CCE525] Influenza, seasonal, inject able Seasonal influenza vaccine, injectable, containing preservative, for > 3 years old (Afluria, FluLaval, Fluzone, Fluvirin, Fluarix, Agriflu(>= 18 yo)) Fluzone (>3 yrs.) [CKN600] Influenza, seasonal, inject able Vital Signs Date [...] C - Chemistry sodium, serum 140 mmol/L 630-300 8782/02/26 potassium, serum 5.3 mmol/L 3.5-5.2 chloride, serum [...] 0.39 mg/dL 0.00-1.00 cholesterol, serum 345 mg/dL 029-210 0568/08/26 triglyceride, serum, fasting 635 mg/dL 30-200 HDL [...] Panel - Chemistry sodium, serum 136 mmol/L 782-609 1535/01/06 potassium, serum 5.1 mmol/L 3.5-5.2 chloride, serum [...] Panel - Chemistry sodium, serum 139 mmol/L 005-388 4752/08/26 potassium, serum 5.8 mmol/L 3.5-5.2 chloride, serum [...] mg/dL Encounters Code Encounter Date Provider Facility CPT-22056 Level 4 Est. Patient 12:20:13 CDT Baltazar Childers MD [facility] CPT-37842 Level 4 Est. Patient 14:52:45 AUTOGLAZIER Baltazar Childers MD [facility] CPT-04981 Level 4 Est. Patient 14:18:34 AUTOGLAZIER Baltazar Childers MD [facility] CPT-65365 Level 4 Est. Patient 15:18:29 CDT Baltazar Childers MD [facility] CPT-58948 Level 3 Est. Patient 12:45:34 CDT Baltazar Childers MD [facility] CPT-47638 Level 3 Est. Patient 10:10:11 CDT Baltazar Childers MD [facility] CPT-33360 Level 3 Est. Patient 14:07:50 CDT Baltazar Childers MD [facility] CPT-64719 Level 4 Est. Patient 12:26:10 AUTOGLAZIER Baltazar Childers MD [facility] CPT-12739 Level 4 Est. Patient 14:45:38 CDT Baltazar Childers MD [facility] CPT-86970 Level 4 New Patient 12:30:48 CDT Baltazar hinton MD [facility] Procedures Code Procedure Name Date Entry Date Standard Desc ription CPT-55437 First Vx Component - Ix admi n via ID IM or jet inj without physician counseling 15:17:19 AUTOGLAZIER CPT-80031 Pneumovax 15:17:19 AUTOGLAZIER CPT-23664 Pneumovax 14:52:45 AUTOGLAZIER CPT-80787 Venipuncture Draw Fee 14:06:30 AUTOGLAZIER CPT-000 Give Appropriate Flu Vaccine 14:18:34 AUTOGLAZIER 2 CPT-91118 Administration single or combination vac cine inc oral 14:46:00 AUTOGLAZIER CPT-18852 Influenza split virus > age 3 14:46:00 AUTOGLAZIER CPT-OV Office Visit 19:13:16 CDT CPT-50393 Zostavax 18:41:56 CDT CPT-72902 Administration single or combination vac cine inc oral 12:56:39 CDT CPT-59278 Zoster Vaccine (Zostavax) 12:56:39 CDT 2012 CPT-12832 Venipuncture Draw Fee 10:58:57 CDT CPT-47828 Sono pelvis non OB uterus ovaries cervix 17:45:04 CDT CPT-60374 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
--- OUTSIDE RECORDS SUMMARY | 2019-10-27 14:02 | XMS REPORT | Clinical Summary ---
Author Author Admin, Elba Lance [facility] Address Unknown Phone Allergies, Adverse [...] y atherosclerosis of unspecified type of vessel, [place] or graft OTH NONSPC ABN FINDNG [...] tab every 6-8 hour s PRN HYDROCODONE-ACETAMINOPHEN 30176397872 Active Baltazar Childers MD Active NORTRIPTYLINE HCL 50 MG CAPS 1 every night for neuropathy 4 NORTRIPTYLINE HCL 51794665299 Active Baltazar Childers MD Acti ve GABAPENTIN 300 MG CAPS 1 three times a day GABAPE NTIN 73758377782 Active Baltazar Childers MD Active GABAPENTIN 300 MG CAPS 1 po qd x 2 days, then 1 po BID x 2 d ays, then 1 po TID GABAPENTIN 77253264685 No Longer Active Baltazar silverman MD Active TRAMADOL HCL 50 MG TABS 1 twice a day as needed for pain TRAMADOL HCL 99442634134 Active Baltazar Childers MD Active NAPROXEN 500 MG TABS 1 tablet by mouth twice daily NAPROXEN 07345505338 No Longer Active Baltazar Childers MD Active PROAIR HFA 108 (90 BASE) MCG/ACT AERS 2 puffs four times a d ay as needed ALBUTEROL SULFATE 41239859787 Active Baltazar Childers MD Active DEPO-TESTOSTERONE 200 MG/ML OIL as directed RUFINO TOSTERONE CYPIONATE 85533704434 No Longer Active Baltazar Childers MD Active LIPITOR 20 MG TABS Take one by mouth daily in evening ATORVASTATIN CALCIUM 32337340994 No Longer Active Baltazar Childers MD Activ e CRESTOR 10 MG TABS 1 by mouth every day R OSUVASTATIN CALCIUM 22738853012 No Longer Active Baltazar Childers MD Activ e PHENTERMINE HCL 37.5 MG TABS Take one by mouth daily 2 PHENTERMINE HCL 91170928880 No Longer Active Baltazar Childers MD Activ e ROBAXIN-750 750 MG TABS Take one by mouth daily ME THOCARBAMOL 48167515165 Active Baltazar Childers MD Active TIZANIDINE HCL 4 MG TABS 1 daily as needed for muscle spasm 2011 TIZANIDINE HCL 76507117744 No Longer Active Dawna Salazar RN Active ONETOUCH ULTRA BLUE STRP Test twice a day GLUCO SE BLOOD 35125979489 Active Baltazar Childers MD Active [id number] 50-325-40 MG TABS 1 four time s a day as needed for heacache [id number] 71693142283 Active Baltazar Childers MD Active SUMATRIPTAN SUCCINATE 100 MG TABS 1 tablet by mouth at onset of migraine as needed SUMATRIPTAN SUCCINATE 62816773516 Active Shrieen Miller APRN Active LORATADINE 10 MG TABS Take one by mouth daily LORATADINE 12536968187 Active Brad Hughes Active FUROSEMIDE 40 MG TABS Take one by mouth daily FUROSEMIDE 75101310849 Active Shireen Miller APRN Active LISINOPRIL 20 MG TABS Take one by mouth daily at bedtime LISINOPRIL 73720485396 Active Shireen Miller APRN Active OMEPRAZOLE 20 MG CPDR Take one by mouth daily OMEPRAZOLE 52911639186 Active Shireen Miller APRN Active HYDROXYZINE HCL 25 MG TABS Take one by mouth daily HYDROXYZINE HCL 75668009808 Active Shireen Miller APRN Active GLIPIZIDE 10 MG TABS 1 tablet by mouth twice daily GLIPIZIDE 91367180450 Active Shireen Miller APRN Active ALPRAZOLAM 1 MG TABS 1 tablet by mouth daily at bedtime for restles s leg ALPRAZOLAM 61550641129 Active Baltazar Childers MD Active METFORMIN HCL 1000 MG TABS Take one by mouth twice daily METFORMIN HCL 07036351255 Active Shireen Miller APRN Active TIZANIDINE HCL 4 MG TABS 1 daily as needed for muscle spasm 2011 TIZANIDINE HCL 4 MG TABS 633161 TIZANIDINE HCL Inactiv e PHENTERMINE HCL 37.5 MG TABS Take one by mouth daily 2 PHENTERMINE HCL 37.5 MG TABS 860240 PHENTERMINE HCL Inactive CRESTOR 10 MG TABS 1 by mouth every day C RESTOR 10 MG TABS ROSUVASTATIN CALCIUM Inactive LIPITOR 20 MG TABS Take one by mouth daily in evening LIPITOR 20 MG TABS 828207 ATORVASTATIN CALCIUM Inactive DEPO-TESTOSTERONE 200 MG/ML OIL as directed 8 DEPO-TESTOSTERONE 200 MG/ML OIL 449608 TESTOSTERONE CYPIONATE Inactive NAPROXEN 500 MG TABS 1 tablet by mouth twice daily 201 07/27/22 NAPROXEN 500 MG TABS 203588 NAPROXEN Inactive GABAPENTIN 300 MG CAPS 1 po qd x 2 days, then 1 po BID x 2 d ays, then 1 po TID GABAPENTIN 300 MG CAPS 869689 GABAPENTIN Inact amie Immunizations Vaccine Administration Date Value Standard Lfoyd cription pneumococcal immunization administered Pneumovax 23 [CVX33] pneumococcal polysaccharide vaccine, 23 valent Seasonal influenza vaccine, injectable, containing preservative, for > 3 years old (Afluria, FluLaval, Fluzone, Fluvirin, Fluarix, Agriflu(>= 18 yo)) Fluzone (>3 yrs.) [[id number]] Influenza, seasonal, inject able Seasonal influenza vaccine, injectable, containing preservative, for > 3 years old (Afluria, FluLaval, Fluzone, Fluvirin, Fluarix, Agriflu(>= 18 yo)) Fluzone (>3 yrs.) [YSG014] Influenza, seasonal, inject able Vital Signs Date [...] C - Chemistry sodium, serum 140 mmol/L 216-618 5055/02/26 potassium, serum 5.3 mmol/L 3.5-5.2 chloride, serum 101 mmol/L 98-107 carbon dioxide, venous blood 36.9 mmol/L 21.0-32 .0 blood glucose 151 mg/dL 65-110 calcium, serum 8.7 mg/dL 8.5-10.1 urea nitrogen, blood 19 mg/dL 7-18 creatinine, serum 1.60 mg/dL 0.60-1.30 hemoglobin A1C, blood, as % of total hemoglobin 7.9 % 4.3-6.0 Lab Report: CBC, Basic Metabolic Panel, HGBA1C - Chemistry sodium, serum 138 mmol/L 020-243 7350/05/23 potassium, serum 4.9 mmol/L 3.5-5.2 chloride, serum [...] 0.39 mg/dL 0.00-1.00 cholesterol, serum 345 mg/dL 504-828 3165/08/26 triglyceride, serum, fasting 635 mg/dL 30-200 HDL [...] Panel - Chemistry sodium, serum 136 mmol/L 434-277 2111/01/06 potassium, serum 5.1 mmol/L 3.5-5.2 chloride, serum [...] Panel - Chemistry sodium, serum 139 mmol/L 682-897 4100/08/26 potassium, serum 5.8 mmol/L 3.5-5.2 chloride, serum 98 mmol/L 98-107 carbon dioxide, venous blood 33.0 mmol/L 21.0-32 .0 blood glucose 107 mg/dL 65-110 urea nitrogen, blood 26 mg/dL 7-18 creatinine, serum 1.80 mg/dL 0.60-1.30 calcium, serum 9.3 mg/dL 8.5-10.1 sodium, serum 138 mmol/L 388-698 1679/06/17 potassium, serum 4.9 mmol/L 3.5-5.2 chloride, serum [...] mg/dL Encounters Code Encounter Date Provider Facility CPT-28959 Level 4 Est. Patient 14:52:45 [employer] Baltazar Childers MD [facility] CPT-42443 Level 4 Est. Patient 14:18:34 [employer] Baltazar Childers MD [facility] CPT-36198 Level 4 Est. Patient 15:18:29 CDT Baltazar Childers MD [facility] CPT-83789 Level 3 Est. Patient 12:45:34 CDT Baltazar Childers MD [facility] CPT-73230 Level 3 Est. Patient 10:10:11 CDT Baltazar Childers MD [facility] CPT-82634 Level 3 Est. Patient 14:07:50 CDT Baltazar Childers MD [facility] CPT-49133 Level 4 Est. Patient 12:26:10 [employer] Baltazar Childers MD [facility] CPT-59259 Level 4 Est. Patient 14:45:38 CDT Baltazar Childers MD [facility] CPT-04245 Level 4 New Patient 12:30:48 CDT Baltazar hinton MD [facility] Procedures Code Procedure Name Date Entry Date Standard Desc ription CPT-69018 First Vx Component - Ix admi n via ID IM or jet inj without physician counseling 15:17:19 [employer] CPT-86759 Pneumovax 15:17:19 [employer] CPT-60737 Pneumovax 14:52:45 [employer] CPT-15858 Venipuncture Draw Fee 14:06:30 [employer] CPT-000 Give Appropriate Flu Vaccine 14:18:34 [employer] 2 CPT-48238 Administration single or combination vac cine inc oral 14:46:00 [employer] CPT-60712 Influenza split virus > age 3 14:46:00 [employer] CPT-OV Office Visit 19:13:16 CDT CPT-35133 Zostavax 18:41:56 CDT CPT-08475 Administration single or combination vac cine inc oral 12:56:39 CDT CPT-56061 Zoster Vaccine (Zostavax) 12:56:39 CDT 2012 CPT-98912 Venipuncture Draw Fee 10:58:57 CDT CPT-51369 Sono pelvis non OB uterus ovaries cervix 17:45:04 CDT CPT-83746 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
--- OUTSIDE RECORDS SUMMARY | 2019-10-27 14:02 | XMS REPORT | Clinical Summary ---
Author Author Admin, Elba Lance [facility] Address Unknown Phone Allergies, Adverse Reactions, [...] y atherosclerosis of unspecified type of vessel, [place] or graft OTH NONSPC ABN FINDNG RAD&OTH [...] tab every 6-8 hour s PRN HYDROCODONE-ACETAMINOPHEN 69476049435 Active Baltazar Childers MD Active NORTRIPTYLINE HCL 50 MG CAPS 1 every night for neuropathy 4 NORTRIPTYLINE HCL 72910296845 Active Baltazar Childers MD Acti ve GABAPENTIN 300 MG CAPS 1 three times a day GABAPE NTIN 52271083950 Active Baltazar Childers MD Active GABAPENTIN 300 MG CAPS 1 po qd x 2 days, then 1 po BID x 2 d ays, then 1 po TID GABAPENTIN 12123105633 No Longer Active Baltazar silverman MD Active TRAMADOL HCL 50 MG TABS 1 twice a day as needed for pain TRAMADOL HCL 47205741149 Active Baltazar Childers MD Active NAPROXEN 500 MG TABS 1 tablet by mouth twice daily NAPROXEN 65391969750 No Longer Active Baltazar Childers MD Active PROAIR HFA 108 (90 BASE) MCG/ACT AERS 2 puffs four times a d ay as needed ALBUTEROL SULFATE 54970368658 Active Baltazar Childers MD Active DEPO-TESTOSTERONE 200 MG/ML OIL as directed RUFINO TOSTERONE CYPIONATE 52027764260 No Longer Active Baltazar Childers MD Active LIPITOR 20 MG TABS Take one by mouth daily in evening ATORVASTATIN CALCIUM 26784294948 No Longer Active Baltazar Childers MD Activ e CRESTOR 10 MG TABS 1 by mouth every day R OSUVASTATIN CALCIUM 55518722298 No Longer Active Baltazar Childers MD Activ e PHENTERMINE HCL 37.5 MG TABS Take one by mouth daily 2 PHENTERMINE HCL 07754507806 No Longer Active Baltazar Childers MD Activ e ROBAXIN-750 750 MG TABS Take one by mouth daily ME THOCARBAMOL 05546323080 Active Baltazar Childers MD Active TIZANIDINE HCL 4 MG TABS 1 daily as needed for muscle spasm 2011 TIZANIDINE HCL 74181696295 No Longer Active Dawna Salazar RN Active ONETOUCH ULTRA BLUE STRP Test twice a day GLUCO SE BLOOD 25029904126 Active Baltazar Childers MD Active [id number] 50-325-40 MG TABS 1 four time s a day as needed for heacache [id number] 96015054021 Active Baltazar Childers MD Active SUMATRIPTAN SUCCINATE 100 MG TABS 1 tablet by mouth at onset of migraine as needed SUMATRIPTAN SUCCINATE 85386142402 Active Shireen Miller APRN Active LORATADINE 10 MG TABS Take one by mouth daily LORATADINE 21911544877 Active Brad Hughes Active FUROSEMIDE 40 MG TABS Take one by mouth daily FUROSEMIDE 46378374355 Active Shireen Miller APRN Active LISINOPRIL 20 MG TABS Take one by mouth daily at bedtime LISINOPRIL 03931596978 Active Shireen Miller APRN Active OMEPRAZOLE 20 MG CPDR Take one by mouth daily OMEPRAZOLE 86394494646 Active Shireen Miller APRN Active HYDROXYZINE HCL 25 MG TABS Take one by mouth daily HYDROXYZINE HCL 02074185178 Active Shireen Miller APRN Active GLIPIZIDE 10 MG TABS 1 tablet by mouth twice daily GLIPIZIDE 10059944442 Active Shireen Miller APRN Active ALPRAZOLAM 1 MG TABS 1 tablet by mouth daily at bedtime for restles s leg ALPRAZOLAM 31439982014 Active Baltazar Childers MD Active METFORMIN HCL 1000 MG TABS Take one by mouth twice daily METFORMIN HCL 19714943630 Active Shireen Miller APRN Active TIZANIDINE HCL 4 MG TABS 1 daily as needed for muscle spasm 2011 TIZANIDINE HCL 4 MG TABS 346456 TIZANIDINE HCL Inactiv e PHENTERMINE HCL 37.5 MG TABS Take one by mouth daily 2 PHENTERMINE HCL 37.5 MG TABS 021643 PHENTERMINE HCL Inactive CRESTOR 10 MG TABS 1 by mouth every day C RESTOR 10 MG TABS ROSUVASTATIN CALCIUM Inactive LIPITOR 20 MG TABS Take one by mouth daily in evening LIPITOR 20 MG TABS 243314 ATORVASTATIN CALCIUM Inactive DEPO-TESTOSTERONE 200 MG/ML OIL as directed 8 DEPO-TESTOSTERONE 200 MG/ML OIL 313402 TESTOSTERONE CYPIONATE Inactive NAPROXEN 500 MG TABS 1 tablet by mouth twice daily 201 07/27/22 NAPROXEN 500 MG TABS 209231 NAPROXEN Inactive GABAPENTIN 300 MG CAPS 1 po qd x 2 days, then 1 po BID x 2 d ays, then 1 po TID GABAPENTIN 300 MG CAPS 544636 GABAPENTIN Inact amie Immunizations Vaccine Administration Date Value Standard Floyd cription pneumococcal immunization administered Pneumovax 23 [CVX33] pneumococcal polysaccharide vaccine, 23 valent Seasonal influenza vaccine, injectable, containing preservative, for > 3 years old (Afluria, FluLaval, Fluzone, Fluvirin, Fluarix, Agriflu(>= 18 yo)) Fluzone (>3 yrs.) [JMV138] Influenza, seasonal, inject able Seasonal influenza vaccine, injectable, containing preservative, for > 3 years old (Afluria, FluLaval, Fluzone, Fluvirin, Fluarix, Agriflu(>= 18 yo)) Fluzone (>3 yrs.) [[id number]] Influenza, seasonal, inject able Vital Signs Date [...] C - Chemistry sodium, serum 140 mmol/L 929-901 8453/02/26 potassium, serum 5.3 mmol/L 3.5-5.2 chloride, serum 101 mmol/L 98-107 carbon dioxide, venous blood 36.9 mmol/L 21.0-32 .0 blood glucose 151 mg/dL 65-110 calcium, serum 8.7 mg/dL 8.5-10.1 urea nitrogen, blood 19 mg/dL 7-18 creatinine, serum 1.60 mg/dL 0.60-1.30 hemoglobin A1C, blood, as % of total hemoglobin 7.9 % 4.3-6.0 Lab Report: CBC, Basic Metabolic Panel, HGBA1C - Chemistry sodium, serum 138 mmol/L 838-853 8364/05/23 potassium, serum 4.9 mmol/L 3.5-5.2 chloride, serum [...] 0.39 mg/dL 0.00-1.00 cholesterol, serum 345 mg/dL 164-297 5445/08/26 triglyceride, serum, fasting 635 mg/dL 30-200 HDL [...] Panel - Chemistry sodium, serum 136 mmol/L 712-321 1858/01/06 potassium, serum 5.1 mmol/L 3.5-5.2 chloride, serum [...] Panel - Chemistry sodium, serum 139 mmol/L 028-952 4937/08/26 potassium, serum 5.8 mmol/L 3.5-5.2 chloride, serum 98 mmol/L 98-107 carbon dioxide, venous blood 33.0 mmol/L 21.0-32 .0 blood glucose 107 mg/dL 65-110 urea nitrogen, blood 26 mg/dL 7-18 creatinine, serum 1.80 mg/dL 0.60-1.30 calcium, serum 9.3 mg/dL 8.5-10.1 sodium, serum 138 mmol/L 185-547 8934/06/17 potassium, serum 4.9 mmol/L 3.5-5.2 chloride, serum [...] mg/dL Encounters Code Encounter Date Provider Facility CPT-18751 Level 4 Est. Patient 14:52:45 [employer] Baltazar Childers MD [facility] CPT-98161 Level 4 Est. Patient 14:18:34 [employer] Baltazar Childers MD [facility] CPT-32052 Level 4 Est. Patient 15:18:29 CDT Baltazar Childers MD [facility] CPT-31344 Level 3 Est. Patient 12:45:34 CDT Baltazar Childers MD [facility] CPT-54575 Level 3 Est. Patient 10:10:11 CDT Baltazar Childers MD [facility] CPT-35415 Level 3 Est. Patient 14:07:50 CDT Baltazar Childers MD [facility] CPT-45181 Level 4 Est. Patient 12:26:10 [employer] Baltazar Childers MD [facility] CPT-05839 Level 4 Est. Patient 14:45:38 CDT Baltazar Childers MD [facility] CPT-51830 Level 4 New Patient 12:30:48 CDT Baltazar hinton MD [facility] Procedures Code Procedure Name Date Entry Date Standard Desc ription CPT-35889 First Vx Component - Ix admi n via ID IM or jet inj without physician counseling 15:17:19 [employer] CPT-45922 Pneumovax 15:17:19 [employer] CPT-70129 Pneumovax 14:52:45 [employer] CPT-52147 Venipuncture Draw Fee 14:06:30 [employer] CPT-000 Give Appropriate Flu Vaccine 14:18:34 [employer] 2 CPT-36473 Administration single or combination vac cine inc oral 14:46:00 [employer] CPT-78585 Influenza split virus > age 3 14:46:00 [employer] CPT-OV Office Visit 19:13:16 CDT CPT-00592 Zostavax 18:41:56 CDT CPT-63109 Administration single or combination vac cine inc oral 12:56:39 CDT CPT-57914 Zoster Vaccine (Zostavax) 12:56:39 CDT 2012 CPT-12441 Venipuncture Draw Fee 10:58:57 CDT CPT-81449 Sono pelvis non OB uterus ovaries cervix 17:45:04 CDT CPT-72018 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
--- OUTSIDE RECORDS SUMMARY | 2019-10-27 14:03 | XMS REPORT | Clinical Summary ---
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 Benign neoplasm of colon PERIPHERAL NEUROPATHY 356.9 [...] y atherosclerosis of unspecified type of vessel, [place] [...] tab every 6-8 hour s PRN HYDROCODONE-ACETAMINOPHEN 16023501742 Active Baltazar Childers MD Active NORTRIPTYLINE HCL 50 MG CAPS 1 every night for neuropathy 4 NORTRIPTYLINE HCL 62402226916 Active Baltazar Childers MD Acti ve GABAPENTIN 300 MG CAPS 1 three times a day GABAPE NTIN 43454025131 Active Baltazar Childers MD Active GABAPENTIN 300 MG CAPS 1 po qd x 2 days, then 1 po BID x 2 d ays, then 1 po TID GABAPENTIN 07533812713 No Longer Active Baltazar silverman MD Active TRAMADOL HCL 50 MG TABS 1 twice a day as needed for pain TRAMADOL HCL 10890365899 Active Baltazar Childers MD Active NAPROXEN 500 MG TABS 1 tablet by mouth twice daily NAPROXEN 31096128235 No Longer Active Baltazar Childers MD Active PROAIR HFA 108 (90 BASE) MCG/ACT AERS 2 puffs four times a d ay as needed ALBUTEROL SULFATE 11720338114 Active Baltazar Childers MD Active DEPO-TESTOSTERONE 200 MG/ML OIL as directed RUFINO TOSTERONE CYPIONATE 68704727839 No Longer Active Baltazar Childers MD Active LIPITOR 20 MG TABS Take one by mouth daily in evening ATORVASTATIN CALCIUM 26415452362 No Longer Active Baltazar Childers MD Activ e CRESTOR 10 MG TABS 1 by mouth every day R OSUVASTATIN CALCIUM 13598193584 No Longer Active Baltazar Childers MD Activ e PHENTERMINE HCL 37.5 MG TABS Take one by mouth daily 2 PHENTERMINE HCL 80663605530 No Longer Active Baltazar Childers MD Activ e ROBAXIN-750 750 MG TABS Take one by mouth daily ME THOCARBAMOL 64178559924 Active Baltazar Childers MD Active TIZANIDINE HCL 4 MG TABS 1 daily as needed for muscle spasm 2011 TIZANIDINE HCL 97980950054 No Longer Active Dawna Salazar RN Active ONETOUCH ULTRA BLUE STRP Test twice a day GLUCO SE BLOOD 05288656231 Active Baltazar Childers MD Active FTTWLVAOQM-[id number]-EFTQDTUN 50-325-40 MG TABS 1 four time s a day as needed for heacache [id number] 54370136585 Active Baltazar Childers MD Active SUMATRIPTAN SUCCINATE 100 MG TABS 1 tablet by mouth at onset of migraine as needed SUMATRIPTAN SUCCINATE 83936817981 Active Baltazar bynum MD Active LORATADINE 10 MG TABS Take one by mouth daily LORATADINE 39132466313 Active Baltazar Childers MD Active FUROSEMIDE 40 MG TABS Take one by mouth daily FUROSEMIDE 93781977227 Active Baltazar Childers MD Active LISINOPRIL 20 MG TABS Take one by mouth daily at bedtime LISINOPRIL 89311486581 Active Baltazar Childers MD Active OMEPRAZOLE 20 MG CPDR Take one by mouth daily OMEPRAZOLE 99353983553 Active Baltazar Childers MD Active HYDROXYZINE HCL 25 MG TABS Take one by mouth daily HYDROXYZINE HCL 52774353482 Active Baltazar Childers MD Active GLIPIZIDE 10 MG TABS 1 tablet by mouth twice daily GLIPIZIDE 72863612439 Active Baltazar Childers MD Active ALPRAZOLAM 1 MG TABS 1 tablet by mouth daily at bedtime for restles s leg ALPRAZOLAM 87085643385 Active Baltazar Childers MD Active METFORMIN HCL 1000 MG TABS Take one by mouth twice daily METFORMIN HCL 04432619036 Active Baltazar Childers MD Active TIZANIDINE HCL 4 MG TABS 1 daily as needed for muscle spasm 2011 TIZANIDINE HCL 4 MG TABS 104536 TIZANIDINE HCL Inactiv e PHENTERMINE HCL 37.5 MG TABS Take one by mouth daily 2 PHENTERMINE HCL 37.5 MG TABS 371698 PHENTERMINE HCL Inactive CRESTOR 10 MG TABS 1 by mouth every day C RESTOR 10 MG TABS ROSUVASTATIN CALCIUM Inactive LIPITOR 20 MG TABS Take one by mouth daily in evening LIPITOR 20 MG TABS 832763 ATORVASTATIN CALCIUM Inactive DEPO-TESTOSTERONE 200 MG/ML OIL as directed 8 DEPO-TESTOSTERONE 200 MG/ML OIL 917396 TESTOSTERONE CYPIONATE Inactive NAPROXEN 500 MG TABS 1 tablet by mouth twice daily 201 07/27/22 NAPROXEN 500 MG TABS 346264 NAPROXEN Inactive GABAPENTIN 300 MG CAPS 1 po qd x 2 days, then 1 po BID x 2 d ays, then 1 po TID GABAPENTIN 300 MG CAPS 790010 GABAPENTIN Inact amie Immunizations Vaccine Administration Date Value Standard Floyd cription pneumococcal immunization administered Pneumovax 23 [CVX33] pneumococcal polysaccharide vaccine, 23 valent Seasonal influenza vaccine, injectable, containing preservative, for > 3 years old (Afluria, FluLaval, Fluzone, Fluvirin, Fluarix, Agriflu(>= 18 yo)) Fluzone (>3 yrs.) [[id number]] Influenza, seasonal, inject able Seasonal influenza vaccine, injectable, containing preservative, for > 3 years old (Afluria, FluLaval, Fluzone, Fluvirin, Fluarix, Agriflu(>= 18 yo)) Fluzone (>3 yrs.) [[id number]] Influenza, seasonal, inject able Vital Signs Date [...] C - Chemistry sodium, serum 140 mmol/L 085-675 7883/02/26 potassium, serum 5.3 mmol/L 3.5-5.2 chloride, serum [...] 0.39 mg/dL 0.00-1.00 cholesterol, serum 345 mg/dL 468-277 9135/08/26 triglyceride, serum, fasting 635 mg/dL 30-200 HDL [...] Panel - Chemistry sodium, serum 136 mmol/L 265-134 5456/01/06 potassium, serum 5.1 mmol/L 3.5-5.2 chloride, serum [...] mg/g mg/g{creat} 0-29 cholesterol, serum 319 mg/dL 797-072 5661/08/21 triglyceride, serum, fasting 546 mg/dL 30-200 HDL cholesterol, serum 39 mg/dL 32-96 LDL cholesterol, serum 167.00 mg/dL 5.00-130.00 hemoglobin A1C, blood, as % of total hemoglobin 7.7 % 4.3-6.0 sodium, serum 138 mmol/L 312-466 7425/08/21 potassium, serum 4.3 mmol/L 3.5-5.2 chloride, serum [...] Panel - Chemistry sodium, serum 139 mmol/L 676-320 1510/08/26 potassium, serum 5.8 mmol/L 3.5-5.2 chloride, serum [...] mg/dL Encounters Code Encounter Date Provider Facility CPT-92597 Level 4 Est. Patient 12:20:13 CDT Baltazar Childers MD [facility] CPT-53165 Level 4 Est. 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 Patient 14:18:34 INSPECTOR PRECISION Baltazar Childers MD [facility] CPT-32757 Level 4 Est. Patient 15:18:29 CDT Baltazar Childers MD [facility] CPT-77954 Level 3 Est. Patient 12:45:34 CDT Baltazar Childers MD [facility] CPT-73929 Level 3 Est. Patient 10:10:11 CDT Baltazar Childers MD [facility] CPT-05706 Level 3 Est. Patient 14:07:50 CDT Baltazar Childers MD [facility] CPT-08836 Level 4 Est. Patient 12:26:10 INSPECTOR PRECISION Baltazar Childers MD [facility] CPT-70908 Level 4 Est. Patient 14:45:38 CDT Baltazar Childers MD [facility] CPT-03930 Level 4 New Patient 12:30:48 CDT Baltazar hinton MD [facility] Procedures Code Procedure Name Date Entry Date Standard Desc ription CPT-10141 First Vx Component - Ix admi n via ID IM or jet inj without physician counseling 15:17:19 INSPECTOR PRECISION CPT-50623 Pneumovax 15:17:19 INSPECTOR PRECISION CPT-05305 Pneumovax 14:52:45 INSPECTOR PRECISION CPT-24736 Venipuncture Draw Fee 14:06:30 INSPECTOR PRECISION CPT-000 Give Appropriate Flu Vaccine 14:18:34 INSPECTOR PRECISION 2 CPT-82800 Administration single or combination vac cine inc oral 14:46:00 INSPECTOR PRECISION CPT-21921 Influenza split virus > age 3 14:46:00 INSPECTOR PRECISION CPT-OV Office Visit 19:13:16 CDT CPT-15343 Zostavax 18:41:56 CDT CPT-07393 Administration single or combination vac cine inc oral 12:56:39 CDT CPT-12697 Zoster Vaccine (Zostavax) 12:56:39 CDT 2012 CPT-33426 Venipuncture Draw Fee 10:58:57 CDT CPT-46948 Sono pelvis non OB uterus ovaries cervix 17:45:04 CDT CPT-93374 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
--- OUTSIDE RECORDS SUMMARY | 2019-10-27 14:03 | XMS REPORT | Clinical Summary ---
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 Benign neoplasm of colon PERIPHERAL NEUROPATHY 356.9 [...] y atherosclerosis of unspecified type of vessel, [place] [...] tab every 6-8 hour s PRN HYDROCODONE-ACETAMINOPHEN 38933654974 Active Baltazar Childers MD Active NORTRIPTYLINE HCL 50 MG CAPS 1 every night for neuropathy 4 NORTRIPTYLINE HCL 46095509716 Active Amaris Jason MD PhD Act amie GABAPENTIN 300 MG CAPS 1 three times a day GABAPE NTIN 50955539342 Active Baltazar Childers MD Active GABAPENTIN 300 MG CAPS 1 po qd x 2 days, then 1 po BID x 2 d ays, then 1 po TID GABAPENTIN 17296668817 No Longer Active Baltazar silverman MD Active TRAMADOL HCL 50 MG TABS 1 twice a day as needed for pain TRAMADOL HCL 39516647450 Active Baltazar Childers MD Active NAPROXEN 500 MG TABS 1 tablet by mouth twice daily NAPROXEN 10891481017 No Longer Active Baltazar Childers MD Active PROAIR HFA 108 (90 BASE) MCG/ACT AERS 2 puffs four times a d ay as needed ALBUTEROL SULFATE 98043531987 Active Baltazar Childers MD Active DEPO-TESTOSTERONE 200 MG/ML OIL as directed RUFINO TOSTERONE CYPIONATE 62603406523 No Longer Active Baltazar Childers MD Active LIPITOR 20 MG TABS Take one by mouth daily in evening ATORVASTATIN CALCIUM 48957042994 No Longer Active Baltazar Childers MD Activ e CRESTOR 10 MG TABS 1 by mouth every day R OSUVASTATIN CALCIUM 39342800299 No Longer Active Baltazar Childers MD Activ e PHENTERMINE HCL 37.5 MG TABS Take one by mouth daily 2 PHENTERMINE HCL 67881803275 No Longer Active Baltazar Childers MD Activ e ROBAXIN-750 750 MG TABS Take one by mouth daily ME THOCARBAMOL 65685976879 Active Baltazar Childers MD Active TIZANIDINE HCL 4 MG TABS 1 daily as needed for muscle spasm 2011 TIZANIDINE HCL 52197769561 No Longer Active Dawna Salazar RN Active ONETOUCH ULTRA BLUE STRP Test twice a day GLUCO SE BLOOD 65360665439 Active Baltazar Childers MD Active [id number]-[id number]-[id number] 50-325-40 MG TABS 1 four time s a day as needed for heacache [id number] 57061756215 Active Baltazar Childers MD Active SUMATRIPTAN SUCCINATE 100 MG TABS 1 tablet by mouth at onset of migraine as needed SUMATRIPTAN SUCCINATE 87655060199 Active Baltazar bynum MD Active LORATADINE 10 MG TABS Take one by mouth daily LORATADINE 99666031749 Active Baltazar Childers MD Active FUROSEMIDE 40 MG TABS Take one by mouth daily FUROSEMIDE 40145507837 Active Baltazar Childers MD Active LISINOPRIL 20 MG TABS Take one by mouth daily at bedtime LISINOPRIL 62049988061 Active Baltazar Childers MD Active OMEPRAZOLE 20 MG CPDR Take one by mouth daily OMEPRAZOLE 68765500789 Active Baltazar Childers MD Active HYDROXYZINE HCL 25 MG TABS Take one by mouth daily HYDROXYZINE HCL 24411917888 Active Baltazar Childers MD Active GLIPIZIDE 10 MG TABS 1 tablet by mouth twice daily GLIPIZIDE 52715278880 Active Baltazar Childers MD Active ALPRAZOLAM 1 MG TABS 1 tablet by mouth daily at bedtime for restles s leg ALPRAZOLAM 23421243862 Active Baltazar Childers MD Active METFORMIN HCL 1000 MG TABS Take one by mouth twice daily METFORMIN HCL 99588376451 Active Baltazar Childers MD Active TIZANIDINE HCL 4 MG TABS 1 daily as needed for muscle spasm 2011 TIZANIDINE HCL 4 MG TABS 960702 TIZANIDINE HCL Inactiv e PHENTERMINE HCL 37.5 MG TABS Take one by mouth daily 2 PHENTERMINE HCL 37.5 MG TABS 793801 PHENTERMINE HCL Inactive CRESTOR 10 MG TABS 1 by mouth every day C RESTOR 10 MG TABS ROSUVASTATIN CALCIUM Inactive LIPITOR 20 MG TABS Take one by mouth daily in evening LIPITOR 20 MG TABS 605650 ATORVASTATIN CALCIUM Inactive DEPO-TESTOSTERONE 200 MG/ML OIL as directed 8 DEPO-TESTOSTERONE 200 MG/ML OIL 395926 TESTOSTERONE CYPIONATE Inactive NAPROXEN 500 MG TABS 1 tablet by mouth twice daily 201 07/27/22 NAPROXEN 500 MG TABS 353617 NAPROXEN Inactive GABAPENTIN 300 MG CAPS 1 po qd x 2 days, then 1 po BID x 2 d ays, then 1 po TID GABAPENTIN 300 MG CAPS 315637 GABAPENTIN Inact amie Immunizations Vaccine Administration Date Value Standard Floyd cription pneumococcal immunization administered Pneumovax 23 [CVX33] pneumococcal polysaccharide vaccine, 23 valent Seasonal influenza vaccine, injectable, containing preservative, for > 3 years old (Afluria, FluLaval, Fluzone, Fluvirin, Fluarix, Agriflu(>= 18 yo)) Fluzone (>3 yrs.) [[id number]] Influenza, seasonal, inject able Seasonal influenza vaccine, injectable, containing preservative, for > 3 years old (Afluria, FluLaval, Fluzone, Fluvirin, Fluarix, Agriflu(>= 18 yo)) Fluzone (>3 yrs.) [[id number]] Influenza, seasonal, inject able Vital Signs Date [...] C - Chemistry sodium, serum 140 mmol/L 078-120 7446/02/26 potassium, serum 5.3 mmol/L 3.5-5.2 chloride, serum [...] Panel - Chemistry sodium, serum 136 mmol/L 282-625 2733/01/06 potassium, serum 5.1 mmol/L 3.5-5.2 chloride, serum [...] mg/g mg/g{creat} 0-29 cholesterol, serum 319 mg/dL 184-943 0677/08/21 triglyceride, serum, fasting 546 mg/dL 30-200 HDL cholesterol, serum 39 mg/dL 32-96 LDL cholesterol, serum 167.00 mg/dL 5.00-130.00 hemoglobin A1C, blood, as % of total hemoglobin 7.7 % 4.3-6.0 sodium, serum 138 mmol/L 856-405 2168/08/21 potassium, serum 4.3 mmol/L 3.5-5.2 chloride, serum [...] mg/dL Encounters Code Encounter Date Provider Facility CPT-27310 Level 4 Est. Patient 12:20:13 CDT Baltazar Childers MD [facility] CPT-70193 Level 4 Est. Patient 14:52:45 COLLECTIONS OFFICER Blatazar Childers MD [facility] CPT-32808 Level 4 Est. Patient 14:18:34 COLLECTIONS OFFICER Baltazar Childers MD [facility] CPT-43280 Level 4 Est. Patient 15:18:29 CDT Baltazar Childers MD [facility] CPT-62278 Level 3 Est. Patient 12:45:34 CDT Baltazar Childers MD [facility] CPT-22396 Level 3 Est. Patient 10:10:11 CDT Baltazar Childers MD [facility] CPT-68967 Level 3 Est. Patient 14:07:50 CDT Baltazar Childers MD [facility] CPT-73069 Level 4 Est. Patient 12:26:10 COLLECTIONS OFFICER Baltazar Childers MD [facility] CPT-34182 Level 4 Est. Patient 14:45:38 CDT Baltazar Childers MD [facility] CPT-61616 Level 4 New Patient 12:30:48 CDT Baltazar hinton MD [facility] Procedures Code Procedure Name Date Entry Date Standard Desc ription CPT-43623 Fluzone Quadrivalent Intramuscular Suspe nsion 0.5 ML 10:49:13 CDT CPT-01653 First Vx Component - Ix admi n via ID IM or jet inj without physician counseling 15:17:19 COLLECTIONS OFFICER CPT-27051 Pneumovax 23 15:17:19 COLLECTIONS OFFICER CPT-04045 Pneumovax 14:52:45 COLLECTIONS OFFICER CPT-60281 Venipuncture Draw Fee 14:06:30 COLLECTIONS OFFICER CPT-000 Give Appropriate Flu Vaccine 14:18:34 COLLECTIONS OFFICER 2 CPT-44399 Administration single or combination vac cine inc oral 14:46:00 COLLECTIONS OFFICER CPT-35763 Influenza split virus > age 3 14:46:00 COLLECTIONS OFFICER CPT-OV Office Visit 19:13:16 CDT CPT-99076 Zostavax 18:41:56 CDT CPT-69327 Administration single or combination vac cine inc oral 12:56:39 CDT CPT-12317 Zoster Vaccine (Zostavax) 12:56:39 CDT 2012 CPT-76049 Venipuncture Draw Fee 10:58:57 CDT CPT-37241 Sono pelvis non OB uterus ovaries cervix 17:45:04 CDT CPT-56275 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
--- OUTSIDE RECORDS SUMMARY | 2019-10-27 14:03 | XMS REPORT | Clinical Summary ---
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 Benign neoplasm of colon PERIPHERAL NEUROPATHY [...] y atherosclerosis of unspecified type of vessel, [place] [...] tab every 6-8 hour s PRN HYDROCODONE-ACETAMINOPHEN 93362534116 Active Baltazar Childers MD Active NORTRIPTYLINE HCL 50 MG CAPS 1 every night for neuropathy 4 NORTRIPTYLINE HCL 05868612300 Active Baltazar Childers MD Acti ve GABAPENTIN 300 MG CAPS 1 three times a day GABAPE NTIN 44915383102 Active Baltazar Childers MD Active GABAPENTIN 300 MG CAPS 1 po qd x 2 days, then 1 po BID x 2 d ays, then 1 po TID GABAPENTIN 63008118919 No Longer Active Baltazar silverman MD Active TRAMADOL HCL 50 MG TABS 1 twice a day as needed for pain TRAMADOL HCL 56659785841 Active Baltazar Childers MD Active NAPROXEN 500 MG TABS 1 tablet by mouth twice daily NAPROXEN 69787251908 No Longer Active Baltazar Childers MD Active PROAIR HFA 108 (90 BASE) MCG/ACT AERS 2 puffs four times a d ay as needed ALBUTEROL SULFATE 68594964098 Active Baltazar Childers MD Active DEPO-TESTOSTERONE 200 MG/ML OIL as directed RUFINO TOSTERONE CYPIONATE 75033668721 No Longer Active Baltazar Childers MD Active LIPITOR 20 MG TABS Take one by mouth daily in evening ATORVASTATIN CALCIUM 52949475919 No Longer Active Baltazar Childers MD Activ e CRESTOR 10 MG TABS 1 by mouth every day R OSUVASTATIN CALCIUM 83746842687 No Longer Active Baltazar Childers MD Activ e PHENTERMINE HCL 37.5 MG TABS Take one by mouth daily 2 PHENTERMINE HCL 92681373139 No Longer Active Baltazar Childers MD Activ e ROBAXIN-750 750 MG TABS Take one by mouth daily ME THOCARBAMOL 39756275201 Active Baltazar Childers MD Active TIZANIDINE HCL 4 MG TABS 1 daily as needed for muscle spasm 2011 TIZANIDINE HCL 43047269743 No Longer Active Dawna Salazar RN Active ONETOUCH ULTRA BLUE STRP Test twice a day GLUCO SE BLOOD 43654425167 Active Baltazar Childers MD Active [id number]-[id number]-[id number] 50-325-40 MG TABS 1 four time s a day as needed for heacache [id number] 16673138298 Active Baltazar Childers MD Active SUMATRIPTAN SUCCINATE 100 MG TABS 1 tablet by mouth at onset of migraine as needed SUMATRIPTAN SUCCINATE 36759304660 Active aBltazar bynum MD Active LORATADINE 10 MG TABS Take one by mouth daily LORATADINE 87287388505 Active Baltazar Childers MD Active FUROSEMIDE 40 MG TABS Take one by mouth daily FUROSEMIDE 29427710184 Active Baltazar Childers MD Active LISINOPRIL 20 MG TABS Take one by mouth daily at bedtime LISINOPRIL 23755428947 Active Baltazar Childers MD Active OMEPRAZOLE 20 MG CPDR Take one by mouth daily OMEPRAZOLE 85927636455 Active Baltazar Childers MD Active HYDROXYZINE HCL 25 MG TABS Take one by mouth daily HYDROXYZINE HCL 20149778394 Active Baltazar Childers MD Active GLIPIZIDE 10 MG TABS 1 tablet by mouth twice daily GLIPIZIDE 25515790878 Active Baltazar Childers MD Active ALPRAZOLAM 1 MG TABS 1 tablet by mouth daily at bedtime for restles s leg ALPRAZOLAM 77595729974 Active Baltazar Childers MD Active METFORMIN HCL 1000 MG TABS Take one by mouth twice daily METFORMIN HCL 79722991794 Active Baltazar Childers MD Active TIZANIDINE HCL 4 MG TABS 1 daily as needed for muscle spasm 2011 TIZANIDINE HCL 4 MG TABS 814097 TIZANIDINE HCL Inactiv e PHENTERMINE HCL 37.5 MG TABS Take one by mouth daily 2 PHENTERMINE HCL 37.5 MG TABS 319740 PHENTERMINE HCL Inactive CRESTOR 10 MG TABS 1 by mouth every day C RESTOR 10 MG TABS ROSUVASTATIN CALCIUM Inactive LIPITOR 20 MG TABS Take one by mouth daily in evening LIPITOR 20 MG TABS 337252 ATORVASTATIN CALCIUM Inactive DEPO-TESTOSTERONE 200 MG/ML OIL as directed 8 DEPO-TESTOSTERONE 200 MG/ML OIL 369456 TESTOSTERONE CYPIONATE Inactive NAPROXEN 500 MG TABS 1 tablet by mouth twice daily 201 07/27/22 NAPROXEN 500 MG TABS 109368 NAPROXEN Inactive GABAPENTIN 300 MG CAPS 1 po qd x 2 days, then 1 po BID x 2 d ays, then 1 po TID GABAPENTIN 300 MG CAPS 406794 GABAPENTIN Inact amie Immunizations Vaccine Administration Date Value Standard Floyd cription pneumococcal immunization administered Pneumovax 23 [CVX33] pneumococcal polysaccharide vaccine, 23 valent Seasonal influenza vaccine, injectable, containing preservative, for > 3 years old (Afluria, FluLaval, Fluzone, Fluvirin, Fluarix, Agriflu(>= 18 yo)) Fluzone (>3 yrs.) [[id number]] Influenza, seasonal, inject able Seasonal influenza vaccine, injectable, containing preservative, for > 3 years old (Afluria, FluLaval, Fluzone, Fluvirin, Fluarix, Agriflu(>= 18 yo)) Fluzone (>3 yrs.) [YSI786] Influenza, seasonal, inject able Vital Signs Date [...] C - Chemistry sodium, serum 140 mmol/L 811-043 1713/02/26 potassium, serum 5.3 mmol/L 3.5-5.2 chloride, serum [...] 0.39 mg/dL 0.00-1.00 cholesterol, serum 345 mg/dL 285-961 7101/08/26 triglyceride, serum, fasting 635 mg/dL 30-200 HDL [...] Panel - Chemistry sodium, serum 136 mmol/L 667-539 2449/01/06 potassium, serum 5.1 mmol/L 3.5-5.2 chloride, serum [...] Panel - Chemistry sodium, serum 139 mmol/L 290-034 7868/08/26 potassium, serum 5.8 mmol/L 3.5-5.2 chloride, serum [...] mg/dL Encounters Code Encounter Date Provider Facility CPT-18399 Level 4 Est. Patient 12:20:13 CDT Baltazar Childers MD [facility] CPT-17340 Level 4 Est. Patient 14:52:45 EMERGENCY CARE ATTENDANT Baltazar Childers MD [facility] CPT-14232 Level 4 Est. Patient 14:18:34 EMERGENCY CARE ATTENDANT Baltazar Childers MD [facility] CPT-82711 Level 4 Est. Patient 15:18:29 CDT Baltazar Childers MD [facility] CPT-42748 Level 3 Est. Patient 12:45:34 CDT Baltazar Childers MD [facility] CPT-24777 Level 3 Est. Patient 10:10:11 CDT Baltazar Childers MD [facility] CPT-84755 Level 3 Est. Patient 14:07:50 CDT Baltazar Childers MD [facility] CPT-37466 Level 4 Est. Patient 12:26:10 EMERGENCY CARE ATTENDANT Baltazar Childers MD [facility] CPT-90672 Level 4 Est. Patient 14:45:38 CDT Baltazar Childers MD [facility] CPT-47859 Level 4 New Patient 12:30:48 CDT Baltazar hinton MD [facility] Procedures Code Procedure Name Date Entry Date Standard Desc ription CPT-24817 First Vx Component - Ix admi n via ID IM or jet inj without physician counseling 15:17:19 EMERGENCY CARE ATTENDANT CPT-01874 Pneumovax 15:17:19 EMERGENCY CARE ATTENDANT CPT-47061 Pneumovax 14:52:45 EMERGENCY CARE ATTENDANT CPT-31029 Venipuncture Draw Fee 14:06:30 EMERGENCY CARE ATTENDANT CPT-000 Give Appropriate Flu Vaccine 14:18:34 EMERGENCY CARE ATTENDANT 2 CPT-56147 Administration single or combination vac cine inc oral 14:46:00 EMERGENCY CARE ATTENDANT CPT-96295 Influenza split virus > age 3 14:46:00 EMERGENCY CARE ATTENDANT CPT-OV Office Visit 19:13:16 CDT CPT-11661 Zostavax 18:41:56 CDT CPT-43564 Administration single or combination vac cine inc oral 12:56:39 CDT CPT-77087 Zoster Vaccine (Zostavax) 12:56:39 CDT 2012 CPT-64991 Venipuncture Draw Fee 10:58:57 CDT CPT-97553 Sono pelvis non OB uterus ovaries cervix 17:45:04 CDT CPT-53741 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
--- OUTSIDE RECORDS SUMMARY | 2019-10-27 14:04 | XMS REPORT | Clinical Summary ---
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 Benign neoplasm of colon PERIPHERAL NEUROPATHY 356.9 [...] y atherosclerosis of unspecified type of vessel, [place] or graft OTH NONSPC ABN FINDNG RAD&OTH [...] care facility COLON POLYPS ICD-211.3 Inactive Lolis Tohmas APR N Medication List Medication Instructions Start Date Stop Date Generic Name NDC Status Provider Patient Instruction HYDROCODONE-ACETAMINOPHEN 7.5-325 MG TABS Take 1 tab every 6-8 hour s PRN HYDROCODONE-ACETAMINOPHEN 34428164441 Active Baltazar Childers MD Active NORTRIPTYLINE HCL 50 MG CAPS 1 every night for neuropathy 4 NORTRIPTYLINE HCL 38474977814 Active Baltazar Childers MD Acti ve GABAPENTIN 300 MG CAPS 1 three times a day GABAPE NTIN 02934552029 Active Baltazar Childers MD Active GABAPENTIN 300 MG CAPS 1 po qd x 2 days, then 1 po BID x 2 d ays, then 1 po TID GABAPENTIN 78133875894 No Longer Active Baltazar silverman MD Active TRAMADOL HCL 50 MG TABS 1 twice a day as needed for pain TRAMADOL HCL 02550312554 Active Baltazar Childers MD Active NAPROXEN 500 MG TABS 1 tablet by mouth twice daily NAPROXEN 48490433604 No Longer Active Baltazar Childers MD Active PROAIR HFA 108 (90 BASE) MCG/ACT AERS 2 puffs four times a d ay as needed ALBUTEROL SULFATE 12273812981 Active Baltazar Childers MD Active DEPO-TESTOSTERONE 200 MG/ML OIL as directed RUFINO TOSTERONE CYPIONATE 38214748993 No Longer Active Baltazar Childers MD Active LIPITOR 20 MG TABS Take one by mouth daily in evening ATORVASTATIN CALCIUM 29782570805 No Longer Active Baltazar Childers MD Activ e CRESTOR 10 MG TABS 1 by mouth every day R OSUVASTATIN CALCIUM 25435269432 No Longer Active Baltazar Childers MD Activ e PHENTERMINE HCL 37.5 MG TABS Take one by mouth daily 2 PHENTERMINE HCL 80133688020 No Longer Active Baltazar Childers MD Activ e ROBAXIN-750 750 MG TABS Take one by mouth daily ME THOCARBAMOL 55367353461 Active Baltazar Childers MD Active TIZANIDINE HCL 4 MG TABS 1 daily as needed for muscle spasm 2011 TIZANIDINE HCL 39937363126 No Longer Active Dawna Salazar RN Active ONETOUCH ULTRA BLUE STRP Test twice a day GLUCO SE BLOOD 92741033071 Active Baltazar Childers MD Active [id number] 50-325-40 MG TABS 1 four time s a day as needed for heacache [id number] 22728885809 Active Baltazar Childers MD Active SUMATRIPTAN SUCCINATE 100 MG TABS 1 tablet by mouth at onset of migraine as needed SUMATRIPTAN SUCCINATE 90475411072 Active Baltazar bynum MD Active LORATADINE 10 MG TABS Take one by mouth daily LORATADINE 99135335791 Active Baltazar Childers MD Active FUROSEMIDE 40 MG TABS Take one by mouth daily FUROSEMIDE 97835858712 Active Baltazar Childers MD Active LISINOPRIL 20 MG TABS Take one by mouth daily at bedtime LISINOPRIL 63414785873 Active Baltazar Childers MD Active OMEPRAZOLE 20 MG CPDR Take one by mouth daily OMEPRAZOLE 18555068014 Active Baltazar Childers MD Active HYDROXYZINE HCL 25 MG TABS Take one by mouth daily HYDROXYZINE HCL 02592959970 Active Baltazar Childers MD Active GLIPIZIDE 10 MG TABS 1 tablet by mouth twice daily GLIPIZIDE 59291163058 Active Baltazar Childers MD Active ALPRAZOLAM 1 MG TABS 1 tablet by mouth daily at bedtime for restles s leg ALPRAZOLAM 71198614823 Active Baltazar Childers MD Active METFORMIN HCL 1000 MG TABS Take one by mouth twice daily METFORMIN HCL 51380230917 Active Baltazar Childers MD Active TIZANIDINE HCL 4 MG TABS 1 daily as needed for muscle spasm 2011 TIZANIDINE HCL 4 MG TABS 111221 TIZANIDINE HCL Inactiv e PHENTERMINE HCL 37.5 MG TABS Take one by mouth daily 2 PHENTERMINE HCL 37.5 MG TABS 558885 PHENTERMINE HCL Inactive CRESTOR 10 MG TABS 1 by mouth every day C RESTOR 10 MG TABS ROSUVASTATIN CALCIUM Inactive LIPITOR 20 MG TABS Take one by mouth daily in evening LIPITOR 20 MG TABS 093420 ATORVASTATIN CALCIUM Inactive DEPO-TESTOSTERONE 200 MG/ML OIL as directed 8 DEPO-TESTOSTERONE 200 MG/ML OIL 976192 TESTOSTERONE CYPIONATE Inactive NAPROXEN 500 MG TABS 1 tablet by mouth twice daily 201 07/27/22 NAPROXEN 500 MG TABS 973491 NAPROXEN Inactive GABAPENTIN 300 MG CAPS 1 po qd x 2 days, then 1 po BID x 2 d ays, then 1 po TID GABAPENTIN 300 MG CAPS 567134 GABAPENTIN Inact amie Immunizations Vaccine Administration Date Value Standard Floyd cription pneumococcal immunization administered Pneumovax 23 [CVX33] pneumococcal polysaccharide vaccine, 23 valent Seasonal influenza vaccine, injectable, containing preservative, for > 3 years old (Afluria, FluLaval, Fluzone, Fluvirin, Fluarix, Agriflu(>= 18 yo)) Fluzone (>3 yrs.) [[id number]] Influenza, seasonal, inject able Seasonal influenza vaccine, injectable, containing preservative, for > 3 years old (Afluria, FluLaval, Fluzone, Fluvirin, Fluarix, Agriflu(>= 18 yo)) Fluzone (>3 yrs.) [[id number]] Influenza, seasonal, inject able Vital Signs Date [...] C - Chemistry sodium, serum 140 mmol/L 063-926 8239/02/26 potassium, serum 5.3 mmol/L 3.5-5.2 chloride, serum [...] 0.39 mg/dL 0.00-1.00 cholesterol, serum 345 mg/dL 648-464 4072/08/26 triglyceride, serum, fasting 635 mg/dL 30-200 HDL [...] Panel - Chemistry sodium, serum 136 mmol/L 356-604 8628/01/06 potassium, serum 5.1 mmol/L 3.5-5.2 chloride, serum [...] Panel - Chemistry sodium, serum 139 mmol/L 282-128 2970/08/26 potassium, serum 5.8 mmol/L 3.5-5.2 chloride, serum [...] mg/dL Encounters Code Encounter Date Provider Facility CPT-06110 Level 4 Est. Patient 12:20:13 CDT Baltazar Childers MD [facility] CPT-28238 Level 4 Est. Patient 14:52:45 MOTORSPORTS TECHNICIAN Baltazar Childers MD [facility] CPT-12455 Level 4 Est. Patient 14:18:34 MOTORSPORTS TECHNICIAN Baltazar Childers MD [facility] CPT-61259 Level 4 Est. Patient 15:18:29 CDT Baltazar Childers MD [facility] CPT-83588 Level 3 Est. Patient 12:45:34 CDT Baltazar Childers MD [facility] CPT-11670 Level 3 Est. Patient 10:10:11 CDT Baltazar Childers MD [facility] CPT-23830 Level 3 Est. Patient 14:07:50 CDT Baltazar Childers MD [facility] CPT-19788 Level 4 Est. Patient 12:26:10 MOTORSPORTS TECHNICIAN Baltazar Childers MD [facility] CPT-02874 Level 4 Est. Patient 14:45:38 CDT Baltazar Childers MD [facility] CPT-41019 Level 4 New Patient 12:30:48 CDT Baltazar hinton MD [facility] Procedures Code Procedure Name Date Entry Date Standard Desc ription CPT-24780 First Vx Component - Ix admi n via ID IM or jet inj without physician counseling 15:17:19 MOTORSPORTS TECHNICIAN CPT-90272 Pneumovax 15:17:19 MOTORSPORTS TECHNICIAN CPT-70978 Pneumovax 14:52:45 MOTORSPORTS TECHNICIAN CPT-24551 Venipuncture Draw Fee 14:06:30 MOTORSPORTS TECHNICIAN CPT-000 Give Appropriate Flu Vaccine 14:18:34 MOTORSPORTS TECHNICIAN 2 CPT-25755 Administration single or combination vac cine inc oral 14:46:00 MOTORSPORTS TECHNICIAN CPT-81866 Influenza split virus > age 3 14:46:00 MOTORSPORTS TECHNICIAN CPT-OV Office Visit 19:13:16 CDT CPT-83547 Zostavax 18:41:56 CDT CPT-91272 Administration single or combination vac cine inc oral 12:56:39 CDT CPT-59978 Zoster Vaccine (Zostavax) 12:56:39 CDT 2012 CPT-28083 Venipuncture Draw Fee 10:58:57 CDT CPT-59655 Sono pelvis non OB uterus ovaries cervix 17:45:04 CDT CPT-10682 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
--- OUTSIDE RECORDS SUMMARY | 2019-10-27 14:04 | XMS REPORT | Clinical Summary ---
Author Author Admin, [facility] Address Unknown Phone Unavailable Allergies, Adverse [...] libido COLON POLYPS 211.3 Resolved Lolis Thomas [employer]X ARCHITECT Benign neoplasm of colon PERIPHERAL NEUROPATHY [...] y atherosclerosis of unspecified type of vessel, [place] or graft OTH NONSPC ABN FINDNG RAD&OTH [...] MISC Test twice a day LANCET S 12642583292 Active Baltazar Childers MD Active TRUEDRAW LANCING DEVICE MISC Test twice a day L ANCET DEVICES 01869112868 Active Baltazar Childers MD Active TRUETRACK TEST STRP Test twice a day GLUCOSE BLOO D 46126356179 Active Baltazar Childers MD Active TRUETRACK BLOOD GLUCOSE W/DEVICE KIT Test twice a day BLOOD GLUCOSE MONITORING SUPPL 19628936858 Active Baltazar Childers MD Activ e HYDROCODONE-ACETAMINOPHEN 7.5-325 MG TABS Take 1 tab every 6-8 hour s PRN HYDROCODONE-ACETAMINOPHEN 42289663577 Active Baltazar Childers MD Active NORTRIPTYLINE HCL 50 MG CAPS 1 every night for neuropathy 4 NORTRIPTYLINE HCL 12538256252 Active Baltazar Childers MD Acti ve GABAPENTIN 300 MG CAPS 1 three times a day GABAPE NTIN 25991740270 Active Baltazar Childers MD Active GABAPENTIN 300 MG CAPS 1 po qd x 2 days, then 1 po BID x 2 d ays, then 1 po TID GABAPENTIN 58719518248 No Longer Active Baltazar silverman MD Active TRAMADOL HCL 50 MG TABS 1 twice a day as needed for pain TRAMADOL HCL 61287348892 Active Baltazar Childers MD Active NAPROXEN 500 MG TABS 1 tablet by mouth twice daily NAPROXEN 01603424171 No Longer Active Baltazar Childers MD Active PROAIR HFA 108 (90 BASE) MCG/ACT AERS 2 puffs four times a d ay as needed ALBUTEROL SULFATE 61369086908 Active Baltazar Childers MD Active DEPO-TESTOSTERONE 200 MG/ML OIL as directed RUFINO TOSTERONE CYPIONATE 27624732748 No Longer Active Baltazar Childers MD Active LIPITOR 20 MG TABS Take one by mouth daily in evening ATORVASTATIN CALCIUM 76360274367 No Longer Active Baltazar Childers MD Activ e CRESTOR 10 MG TABS 1 by mouth every day R OSUVASTATIN CALCIUM 89194653077 No Longer Active Baltazar Childers MD Activ e PHENTERMINE HCL 37.5 MG TABS Take one by mouth daily 2 PHENTERMINE HCL 30120853949 No Longer Active Baltazar Childers MD Activ e ROBAXIN-750 750 MG TABS Take one by mouth daily ME THOCARBAMOL 76106479965 Active Baltazar Childers MD Active TIZANIDINE HCL 4 MG TABS 1 daily as needed for muscle spasm 2011 TIZANIDINE HCL 39542804562 No Longer Active Dawna Salazar RN Active Enterra FeedUCH ULTRA BLUE STRP Test twice a day GLUCO SE BLOOD 31592821805 Active Baltazar Childers MD Active [id number] 50-325-40 MG TABS 1 four time s a day as needed for heacache [id number] 16995181590 Active Baltazar Childers MD Active SUMATRIPTAN SUCCINATE 100 MG TABS 1 tablet by mouth at onset of migraine as needed SUMATRIPTAN SUCCINATE 63999038339 Active Baltazar bynum MD Active LORATADINE 10 MG TABS Take one by mouth daily LORATADINE 45594298963 Active Baltazar Childers MD Active FUROSEMIDE 40 MG TABS Take one by mouth daily FUROSEMIDE 17422973131 Active Baltazar Childers MD Active LISINOPRIL 20 MG TABS Take one by mouth daily at bedtime LISINOPRIL 87596667193 Active Baltazar Childers MD Active OMEPRAZOLE 20 MG CPDR Take one by mouth daily OMEPRAZOLE 78937834072 Active Baltazar Childers MD Active HYDROXYZINE HCL 25 MG TABS Take one by mouth daily HYDROXYZINE HCL 49967284645 Active Baltazar Childers MD Active GLIPIZIDE 10 MG TABS 1 tablet by mouth twice daily GLIPIZIDE 57424775055 Active Baltazar Childers MD Active ALPRAZOLAM 1 MG TABS 1 tablet by mouth daily at bedtime for restles s leg ALPRAZOLAM 52582446673 Active Baltazar Childers MD Active METFORMIN HCL 1000 MG TABS Take one by mouth twice daily METFORMIN HCL 25739958710 Active Baltazar Childers MD Active TIZANIDINE HCL 4 MG TABS 1 daily as needed for muscle spasm 2011 TIZANIDINE HCL 4 MG TABS 608231 TIZANIDINE HCL Inactiv e PHENTERMINE HCL 37.5 MG TABS Take one by mouth daily 2 PHENTERMINE HCL 37.5 MG TABS 025815 PHENTERMINE HCL Inactive CRESTOR 10 MG TABS 1 by mouth every day C RESTOR 10 MG TABS ROSUVASTATIN CALCIUM Inactive LIPITOR 20 MG TABS Take one by mouth daily in evening LIPITOR 20 MG TABS 540117 ATORVASTATIN CALCIUM Inactive DEPO-TESTOSTERONE 200 MG/ML OIL as directed 8 DEPO-TESTOSTERONE 200 MG/ML OIL 329485 TESTOSTERONE CYPIONATE Inactive NAPROXEN 500 MG TABS 1 tablet by mouth twice daily 201 07/27/22 NAPROXEN 500 MG TABS 828049 NAPROXEN Inactive GABAPENTIN 300 MG CAPS 1 po qd x 2 days, then 1 po BID x 2 d ays, then 1 po TID GABAPENTIN 300 MG CAPS 255683 GABAPENTIN Inact amie Immunizations Vaccine Administration Date Value Standard Floyd cription pneumococcal immunization administered Pneumovax 23 [CVX33] pneumococcal polysaccharide vaccine, 23 valent Seasonal influenza vaccine, injectable, containing preservative, for > 3 years old (Afluria, FluLaval, Fluzone, Fluvirin, Fluarix, Agriflu(>= 18 yo)) Fluzone (>3 yrs.) [KQX055] Influenza, seasonal, inject able Seasonal influenza vaccine, injectable, containing preservative, for > 3 years old (Afluria, FluLaval, Fluzone, Fluvirin, Fluarix, Agriflu(>= 18 yo)) Fluzone (>3 yrs.) [PJM995] Influenza, seasonal, inject able Vital Signs Date [...] C - Chemistry sodium, serum 140 mmol/L 960-075 3739/02/26 potassium, serum 5.3 mmol/L 3.5-5.2 chloride, serum [...] Panel - Chemistry sodium, serum 136 mmol/L 277-778 5658/01/06 potassium, serum 5.1 mmol/L 3.5-5.2 chloride, serum [...] mg/g mg/g{creat} 0-29 cholesterol, serum 319 mg/dL 916-628 8311/08/21 triglyceride, serum, fasting 546 mg/dL 30-200 HDL cholesterol, serum 39 mg/dL 32-96 LDL cholesterol, serum 167.00 mg/dL 5.00-130.00 hemoglobin A1C, blood, as % of total hemoglobin 7.7 % 4.3-6.0 sodium, serum 138 mmol/L 199-693 6627/08/21 potassium, serum 4.3 mmol/L 3.5-5.2 chloride, serum [...] mg/dL Encounters Code Encounter Date Provider Facility CPT-19872 Level 4 Est. Patient 14:15:19 CDT Baltazar Childers MD [facility] CPT-54828 Level 4 Est. Patient 12:20:13 CDT Baltazar Childers MD [facility] CPT-49678 Level 4 Est. 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 Patient 15:18:29 CDT Baltazar Childers MD [facility] CPT-35846 Level 3 Est. Patient 12:45:34 CDT Baltazar Childers MD [facility] CPT-12590 Level 3 Est. Patient 10:10:11 CDT Baltazar Childers MD [facility] CPT-35225 Level 3 Est. Patient 14:07:50 CDT Baltazar Childers MD [facility] CPT-36690 Level 4 Est. 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 Patient 14:45:38 CDT Baltazar Childers MD [facility] CPT-05393 Level 4 New Patient 12:30:48 CDT Baltazar hinton MD [facility] Procedures Code Procedure Name Date Entry Date Standard Desc ription CPT-08523 Fluzone Quadrivalent Intramuscular Suspe nsion 0.5 ML 10:49:13 CDT CPT-55903 First Vx Component - Ix admi n via ID IM or jet inj without physician counseling 15:17:19 FORESTRY BIOLOGY SPECIALIST CPT-39981 Pneumovax 23 15:17:19 FORESTRY BIOLOGY SPECIALIST CPT-60556 Pneumovax 14:52:45 FORESTRY BIOLOGY SPECIALIST CPT-90860 Venipuncture Draw Fee 14:06:30 FORESTRY BIOLOGY SPECIALIST CPT-000 Give Appropriate Flu Vaccine 14:18:34 FORESTRY BIOLOGY SPECIALIST 2 CPT-02687 Administration single or combination vac cine inc oral 14:46:00 FORESTRY BIOLOGY SPECIALIST CPT-92519 Influenza split virus > age 3 14:46:00 FORESTRY BIOLOGY SPECIALIST CPT-OV Office Visit 19:13:16 CDT CPT-58429 Zostavax 18:41:56 CDT CPT-58431 Administration single or combination vac cine inc oral 12:56:39 CDT CPT-70762 Zoster Vaccine (Zostavax) 12:56:39 CDT 2012 CPT-30554 Venipuncture Draw Fee 10:58:57 CDT CPT-41970 Sono pelvis non OB uterus ovaries cervix 17:45:04 CDT CPT-13484 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
--- OUTSIDE RECORDS SUMMARY | 2019-10-27 14:04 | XMS REPORT | Clinical Summary ---
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 Benign neoplasm of colon PERIPHERAL NEUROPATHY [...] y atherosclerosis of unspecified type of vessel, [place] [...] tab every 6-8 hour s PRN HYDROCODONE-ACETAMINOPHEN 23650870871 Active Baltazar Childers MD Active NORTRIPTYLINE HCL 50 MG CAPS 1 every night for neuropathy 4 NORTRIPTYLINE HCL 84394756602 Active Amaris Jason MD PhD Act amie GABAPENTIN 300 MG CAPS 1 three times a day GABAPE NTIN 50130046375 Active Baltazar Childers MD Active GABAPENTIN 300 MG CAPS 1 po qd x 2 days, then 1 po BID x 2 d ays, then 1 po TID GABAPENTIN 30705377728 No Longer Active Baltazar silverman MD Active TRAMADOL HCL 50 MG TABS 1 twice a day as needed for pain TRAMADOL HCL 81276964882 Active Batlazar Childers MD Active NAPROXEN 500 MG TABS 1 tablet by mouth twice daily NAPROXEN 93046809563 No Longer Active Baltazar Childers MD Active PROAIR HFA 108 (90 BASE) MCG/ACT AERS 2 puffs four times a d ay as needed ALBUTEROL SULFATE 91955087089 Active Baltazar Childers MD Active DEPO-TESTOSTERONE 200 MG/ML OIL as directed RUFINO TOSTERONE CYPIONATE 71210584710 No Longer Active Baltazar Childers MD Active LIPITOR 20 MG TABS Take one by mouth daily in evening ATORVASTATIN CALCIUM 38530698804 No Longer Active Baltazar Childers MD Activ e CRESTOR 10 MG TABS 1 by mouth every day R OSUVASTATIN CALCIUM 70469661730 No Longer Active Baltazar Childers MD Activ e PHENTERMINE HCL 37.5 MG TABS Take one by mouth daily 2 PHENTERMINE HCL 99760635303 No Longer Active Baltazar Childers MD Activ e ROBAXIN-750 750 MG TABS Take one by mouth daily ME THOCARBAMOL 99513612598 Active Baltazar Childers MD Active TIZANIDINE HCL 4 MG TABS 1 daily as needed for muscle spasm 2011 TIZANIDINE HCL 87078131783 No Longer Active Dawna Salazar RN Active ONETOUCH ULTRA BLUE STRP Test twice a day GLUCO SE BLOOD 55396491039 Active Baltazar Childers MD Active [id number] 50-325-40 MG TABS 1 four time s a day as needed for heacache [id number] 93609162824 Active Baltazar Childers MD Active SUMATRIPTAN SUCCINATE 100 MG TABS 1 tablet by mouth at onset of migraine as needed SUMATRIPTAN SUCCINATE 77891293220 Active Baltazar bynum MD Active LORATADINE 10 MG TABS Take one by mouth daily LORATADINE 23732803781 Active Baltazar Childers MD Active FUROSEMIDE 40 MG TABS Take one by mouth daily FUROSEMIDE 50139369293 Active Baltazar Childers MD Active LISINOPRIL 20 MG TABS Take one by mouth daily at bedtime LISINOPRIL 38338325742 Active Baltazar Childers MD Active OMEPRAZOLE 20 MG CPDR Take one by mouth daily OMEPRAZOLE 13087864108 Active Baltazar Childers MD Active HYDROXYZINE HCL 25 MG TABS Take one by mouth daily HYDROXYZINE HCL 05611112428 Active Baltazar Childers MD Active GLIPIZIDE 10 MG TABS 1 tablet by mouth twice daily GLIPIZIDE 92890970986 Active Baltazar Childers MD Active ALPRAZOLAM 1 MG TABS 1 tablet by mouth daily at bedtime for restles s leg ALPRAZOLAM 47884665686 Active Baltazar Childers MD Active METFORMIN HCL 1000 MG TABS Take one by mouth twice daily METFORMIN HCL 66451121079 Active Baltazar Childers MD Active TIZANIDINE HCL 4 MG TABS 1 daily as needed for muscle spasm 2011 TIZANIDINE HCL 4 MG TABS 972622 TIZANIDINE HCL Inactiv e PHENTERMINE HCL 37.5 MG TABS Take one by mouth daily 2 PHENTERMINE HCL 37.5 MG TABS 618080 PHENTERMINE HCL Inactive CRESTOR 10 MG TABS 1 by mouth every day C RESTOR 10 MG TABS ROSUVASTATIN CALCIUM Inactive LIPITOR 20 MG TABS Take one by mouth daily in evening LIPITOR 20 MG TABS 387307 ATORVASTATIN CALCIUM Inactive DEPO-TESTOSTERONE 200 MG/ML OIL as directed 8 DEPO-TESTOSTERONE 200 MG/ML OIL 776720 TESTOSTERONE CYPIONATE Inactive NAPROXEN 500 MG TABS 1 tablet by mouth twice daily 201 07/27/22 NAPROXEN 500 MG TABS 997878 NAPROXEN Inactive GABAPENTIN 300 MG CAPS 1 po qd x 2 days, then 1 po BID x 2 d ays, then 1 po TID GABAPENTIN 300 MG CAPS 143193 GABAPENTIN Inact amie Immunizations Vaccine Administration Date Value Standard Floyd cription pneumococcal immunization administered Pneumovax 23 [CVX33] pneumococcal polysaccharide vaccine, 23 valent Seasonal influenza vaccine, injectable, containing preservative, for > 3 years old (Afluria, FluLaval, Fluzone, Fluvirin, Fluarix, Agriflu(>= 18 yo)) Fluzone (>3 yrs.) [[id number]] Influenza, seasonal, inject able Seasonal influenza vaccine, injectable, containing preservative, for > 3 years old (Afluria, FluLaval, Fluzone, Fluvirin, Fluarix, Agriflu(>= 18 yo)) Fluzone (>3 yrs.) [[id number]] Influenza, seasonal, inject able Vital Signs Date [...] C - Chemistry sodium, serum 140 mmol/L 830-541 8761/02/26 potassium, serum 5.3 mmol/L 3.5-5.2 chloride, serum [...] Panel - Chemistry sodium, serum 136 mmol/L 988-470 6218/01/06 potassium, serum 5.1 mmol/L 3.5-5.2 chloride, serum [...] mg/g mg/g{creat} 0-29 cholesterol, serum 319 mg/dL 530-870 8830/08/21 triglyceride, serum, fasting 546 mg/dL 30-200 HDL cholesterol, serum 39 mg/dL 32-96 LDL cholesterol, serum 167.00 mg/dL 5.00-130.00 hemoglobin A1C, blood, as % of total hemoglobin 7.7 % 4.3-6.0 sodium, serum 138 mmol/L 550-539 1239/08/21 potassium, serum 4.3 mmol/L 3.5-5.2 chloride, serum [...] mg/dL Encounters Code Encounter Date Provider Facility CPT-45671 Level 4 Est. Patient 12:20:13 CDT Baltazar Childers MD [facility] CPT-24911 Level 4 Est. Patient 14:52:45 [employer] Baltazar Childers MD [facility] CPT-44065 Level 4 Est. Patient 14:18:34 [employer] Baltazar Childers MD [facility] CPT-52221 Level 4 Est. Patient 15:18:29 CDT Baltazar Childers MD [facility] CPT-12305 Level 3 Est. Patient 12:45:34 CDT Baltazar Childers MD [facility] CPT-80912 Level 3 Est. Patient 10:10:11 CDT Baltazar Childers MD [facility] CPT-70338 Level 3 Est. Patient 14:07:50 CDT Baltazar Childers MD [facility] CPT-65134 Level 4 Est. Patient 12:26:10 [employer] Baltazar Childers MD [facility] CPT-12838 Level 4 Est. Patient 14:45:38 CDT Baltazar Childers MD [facility] CPT-05131 Level 4 New Patient 12:30:48 CDT Baltazar hinton MD [facility] Procedures Code Procedure Name Date Entry Date Standard Desc ription CPT-35180 Fluzone Quadrivalent Intramuscular Suspe nsion 0.5 ML 10:49:13 CDT CPT-25668 First Vx Component - Ix admi n via ID IM or jet inj without physician counseling 15:17:19 [employer] CPT-08109 Pneumovax 23 15:17:19 [employer] CPT-97575 Pneumovax 14:52:45 [employer] CPT-44436 Venipuncture Draw Fee 14:06:30 [employer] CPT-000 Give Appropriate Flu Vaccine 14:18:34 [employer] WORKER 2 CPT-51967 Administration single or combination vac cine inc oral 14:46:00 [employer] CPT-40140 Influenza split virus > age 3 14:46:00 [employer] CPT-OV Office Visit 19:13:16 CDT CPT-95798 Zostavax 18:41:56 CDT CPT-82283 Administration single or combination vac cine inc oral 12:56:39 CDT CPT-66377 Zoster Vaccine (Zostavax) 12:56:39 CDT 2012 CPT-58608 Venipuncture Draw Fee 10:58:57 CDT CPT-30395 Sono pelvis non OB uterus ovaries cervix 17:45:04 CDT CPT-89185 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
--- OUTSIDE RECORDS SUMMARY | 2019-10-27 14:04 | XMS REPORT | Clinical Summary ---
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 Benign neoplasm of colon PERIPHERAL NEUROPATHY [...] y atherosclerosis of unspecified type of vessel, [place] or graft OTH NONSPC ABN FINDNG RAD&OTH [...] tab every 6-8 hour s PRN HYDROCODONE-ACETAMINOPHEN 30213161724 Active Baltazar Childers MD Active NORTRIPTYLINE HCL 50 MG CAPS 1 every night for neuropathy 4 NORTRIPTYLINE HCL 96593654340 Active Amaris Jason MD PhD Act amie GABAPENTIN 300 MG CAPS 1 three times a day GABAPE NTIN 50914037754 Active Baltazar Childers MD Active GABAPENTIN 300 MG CAPS 1 po qd x 2 days, then 1 po BID x 2 d ays, then 1 po TID GABAPENTIN 62589878335 No Longer Active Baltazar silverman MD Active TRAMADOL HCL 50 MG TABS 1 twice a day as needed for pain TRAMADOL HCL 33422739299 Active Baltazar Childers MD Active NAPROXEN 500 MG TABS 1 tablet by mouth twice daily NAPROXEN 65517053113 No Longer Active Baltazar Childers MD Active PROAIR HFA 108 (90 BASE) MCG/ACT AERS 2 puffs four times a d ay as needed ALBUTEROL SULFATE 64567237212 Active Baltazar Childers MD Active DEPO-TESTOSTERONE 200 MG/ML OIL as directed RUFINO TOSTERONE CYPIONATE 38626578302 No Longer Active Baltazar Childers MD Active LIPITOR 20 MG TABS Take one by mouth daily in evening ATORVASTATIN CALCIUM 39001746866 No Longer Active Baltazar Childers MD Activ e CRESTOR 10 MG TABS 1 by mouth every day R OSUVASTATIN CALCIUM 59804307157 No Longer Active Baltazar Childers MD Activ e PHENTERMINE HCL 37.5 MG TABS Take one by mouth daily 2 PHENTERMINE HCL 65405290117 No Longer Active Baltazar Childers MD Activ e ROBAXIN-750 750 MG TABS Take one by mouth daily ME THOCARBAMOL 25183492390 Active Baltazar Childers MD Active TIZANIDINE HCL 4 MG TABS 1 daily as needed for muscle spasm 2011 TIZANIDINE HCL 53543839158 No Longer Active Dawna Salazar RN Active ONETOUCH ULTRA BLUE STRP Test twice a day GLUCO SE BLOOD 13615400427 Active Baltazar Childers MD Active [id number] 50-325-40 MG TABS 1 four time s a day as needed for heacache [id number] 40378250785 Active Baltazar Childers MD Active SUMATRIPTAN SUCCINATE 100 MG TABS 1 tablet by mouth at onset of migraine as needed SUMATRIPTAN SUCCINATE 77670921867 Active Baltazar bynum MD Active LORATADINE 10 MG TABS Take one by mouth daily LORATADINE 39508283886 Active Baltazar Childers MD Active FUROSEMIDE 40 MG TABS Take one by mouth daily FUROSEMIDE 82137603768 Active Baltazar Childers MD Active LISINOPRIL 20 MG TABS Take one by mouth daily at bedtime LISINOPRIL 70976143929 Active Baltazar Childers MD Active OMEPRAZOLE 20 MG CPDR Take one by mouth daily OMEPRAZOLE 47423030711 Active Baltazar Childers MD Active HYDROXYZINE HCL 25 MG TABS Take one by mouth daily HYDROXYZINE HCL 29930476693 Active Baltazar Childers MD Active GLIPIZIDE 10 MG TABS 1 tablet by mouth twice daily GLIPIZIDE 73570599476 Active Baltazar Childers MD Active ALPRAZOLAM 1 MG TABS 1 tablet by mouth daily at bedtime for restles s leg ALPRAZOLAM 20631186734 Active Baltazar Childers MD Active METFORMIN HCL 1000 MG TABS Take one by mouth twice daily METFORMIN HCL 75736777269 Active Baltazar Childers MD Active TIZANIDINE HCL 4 MG TABS 1 daily as needed for muscle spasm 2011 TIZANIDINE HCL 4 MG TABS 700785 TIZANIDINE HCL Inactiv e PHENTERMINE HCL 37.5 MG TABS Take one by mouth daily 2 PHENTERMINE HCL 37.5 MG TABS 593790 PHENTERMINE HCL Inactive CRESTOR 10 MG TABS 1 by mouth every day C RESTOR 10 MG TABS ROSUVASTATIN CALCIUM Inactive LIPITOR 20 MG TABS Take one by mouth daily in evening LIPITOR 20 MG TABS 026883 ATORVASTATIN CALCIUM Inactive DEPO-TESTOSTERONE 200 MG/ML OIL as directed 8 DEPO-TESTOSTERONE 200 MG/ML OIL 961049 TESTOSTERONE CYPIONATE Inactive NAPROXEN 500 MG TABS 1 tablet by mouth twice daily 201 07/27/22 NAPROXEN 500 MG TABS 916662 NAPROXEN Inactive GABAPENTIN 300 MG CAPS 1 po qd x 2 days, then 1 po BID x 2 d ays, then 1 po TID GABAPENTIN 300 MG CAPS 785954 GABAPENTIN Inact amie Immunizations Vaccine Administration Date Value Standard Floyd cription pneumococcal immunization administered Pneumovax 23 [CVX33] pneumococcal polysaccharide vaccine, 23 valent Seasonal influenza vaccine, injectable, containing preservative, for > 3 years old (Afluria, FluLaval, Fluzone, Fluvirin, Fluarix, Agriflu(>= 18 yo)) Fluzone (>3 yrs.) [[id number]] Influenza, seasonal, inject able Seasonal influenza vaccine, injectable, containing preservative, for > 3 years old (Afluria, FluLaval, Fluzone, Fluvirin, Fluarix, Agriflu(>= 18 yo)) Fluzone (>3 yrs.) [[id number]] Influenza, seasonal, inject able Vital Signs Date [...] C - Chemistry sodium, serum 140 mmol/L 106-140 8855/02/26 blood glucose 151 mg/dL 65-110 calcium, serum 8.7 mg/dL 8.5-10.1 urea nitrogen, blood 19 mg/dL 7-18 creatinine, serum 1.60 mg/dL 0.60-1.30 hemoglobin A1C, blood, as % of total hemoglobin 7.9 % 4.3-6.0 potassium, serum 5.3 mmol/L 3.5-5.2 chloride, serum 101 mmol/L 98-107 carbon dioxide, venous blood 36.9 mmol/L 21.0-32 .0 Lab Report: CBC - Hematology leukocyte count, [...] Panel - Chemistry sodium, serum 136 mmol/L 700-144 0602/01/06 potassium, serum 5.1 mmol/L 3.5-5.2 chloride, serum 95 mmol/L 98-107 carbon dioxide, venous blood 28.8 mmol/L 21.0-32 .0 blood glucose 240 mg/dL 65-110 urea nitrogen, blood 30 mg/dL 7-18 creatinine, serum 1.80 mg/dL 0.60-1.30 calcium, serum 10.3 mg/dL 8.5-10.1 Lab Report: CBC, Renal Panel - Hematolog y hematocrit, blood 40.2 % 36.0-46.0 mean corpuscular volume, RBC 97 fL 80-97 mean corpuscular hemoglobin, RBC 31.6 pg 27. 0-31.2 mean corpuscular hemoglobin concentration, RBC 32.6 G/DL % 31.8-35.4 red blood cell distribution width 14.5 % 11 .6-14.8 platelet count 346 10^3/MM^3 10*3/mm3 274-369 4139/01/06 hemoglobin, blood 13.1 g/dL 12.0-16.0 erythrocyte (RBC) count 4.14 10^6/MM^3 10*6/mm3 4.04-5.4 8 leukocyte count, blood 7.5 10^3/MM^3 10*3/mm3 4.6-10.2 Lab Report: Chlamydia/GC DNA, SDA - Lab chlamydia DNA probe NOT DETECTED NOT DETECTED Lab Report: Chlamydia/GC DNA, SDA - Micr obiology Neisseria gonorrhoeae DNA probe NOT DETECTED NO T DETECTED Lab Report: MICROALBUMIN, Lipid Panel, H GBA1C, Comp. Metabolic Panel - Chemistry bilirubin, serum, total 0.20 mg/dL 0.00-1.00 albumin/creatinine ratio, urine 30 - 300 mg/g mg/g{creat} 0-29 cholesterol, serum 319 mg/dL 601-467 8350/08/21 triglyceride, serum, fasting 546 mg/dL 30-200 HDL cholesterol, serum 39 mg/dL 32-96 LDL cholesterol, serum 167.00 mg/dL 5.00-130.00 hemoglobin A1C, blood, as % of total hemoglobin 7.7 % 4.3-6.0 sodium, serum 138 mmol/L 957-000 3227/08/21 potassium, serum 4.3 mmol/L 3.5-5.2 chloride, serum 100 mmol/L 98-107 carbon dioxide, venous blood 33.2 mmol/L 21.0-32 .0 blood glucose 138 mg/dL 65-110 urea nitrogen, blood 13 mg/dL 7-18 creatinine, serum 1.40 mg/dL 0.60-1.30 alanine aminotransferase (SGPT), serum 54 U/L 12-78 aspartate aminotransferase (SGOT), serum 29 U/L 15-37 alkaline phosphatase, serum 55 U/L 50-136 calcium, serum 9.8 mg/dL 8.5-10.1 Lab Report: MICROALBUMIN, Lipid Panel, H GBA1C, [...] mg/dL Encounters Code Encounter Date Provider Facility CPT-53236 Level 4 Est. Patient 12:20:13 CDT Baltazar Childers MD [facility] CPT-16746 Level 4 Est. Patient 14:52:45 [employer] BUILDER Baltazar Childers MD [facility] CPT-72848 Level 4 Est. Patient 14:18:34 [employer] BUILDER Baltazar Childers MD [facility] CPT-98414 Level 4 Est. Patient 15:18:29 CDT Baltazar Childers MD [facility] CPT-64386 Level 3 Est. Patient 12:45:34 CDT Baltazar Childers MD [facility] CPT-75835 Level 3 Est. Patient 10:10:11 CDT Baltazar Childers MD [facility] CPT-61848 Level 3 Est. Patient 14:07:50 CDT Baltazar Childers MD [facility] CPT-79339 Level 4 Est. Patient 12:26:10 [employer] BUILDER Baltazar Childers MD [facility] CPT-04958 Level 4 Est. Patient 14:45:38 CDT Baltazar Childers MD [facility] CPT-36336 Level 4 New Patient 12:30:48 CDT Baltazar hinton MD [facility] Procedures Code Procedure Name Date Entry Date Standard Desc ription CPT-65756 First Vx Component - Ix admi n via ID IM or jet inj without physician counseling 15:17:19 [employer] BU[employer] CPT-68387 Pneumovax 23 15:17:19 [employer] BU[employer] CPT-12230 Pneumovax 14:52:45 [employer] BUILDER CPT-18435 Venipuncture Draw Fee 14:06:30 [employer] BUILDER CPT-000 Give Appropriate Flu Vaccine 14:18:34 [employer] BUILDER 2 CPT-16903 Administration single or combination vac cine inc oral 14:46:00 [employer] BUILDER CPT-40162 Influenza split virus > age 3 14:46:00 [employer] WIRE BUILDER CPT-OV Office Visit 19:13:16 CDT CPT-55736 Zostavax 18:41:56 CDT CPT-29613 Administration single or combination vac cine inc oral 12:56:39 CDT CPT-63092 Zoster Vaccine (Zostavax) 12:56:39 CDT 2012 CPT-81799 Venipuncture Draw Fee 10:58:57 CDT CPT-90398 Sono pelvis non OB uterus ovaries cervix 17:45:04 CDT CPT-96562 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
--- OUTSIDE RECORDS SUMMARY | 2019-10-27 14:05 | XMS REPORT | Clinical Summary ---
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 Benign neoplasm of colon PERIPHERAL NEUROPATHY 356.9 [...] y atherosclerosis of unspecified type of vessel, [place] [...] tab every 6-8 hour s PRN HYDROCODONE-ACETAMINOPHEN 19207610402 Active Baltazar Childers MD Active NORTRIPTYLINE HCL 50 MG CAPS 1 every night for neuropathy 4 NORTRIPTYLINE HCL 84054278208 Active Baltazar Childers MD Acti ve GABAPENTIN 300 MG CAPS 1 three times a day GABAPE NTIN 43384079066 Active Baltazar Childers MD Active GABAPENTIN 300 MG CAPS 1 po qd x 2 days, then 1 po BID x 2 d ays, then 1 po TID GABAPENTIN 19123704791 No Longer Active Baltazar silverman MD Active TRAMADOL HCL 50 MG TABS 1 twice a day as needed for pain TRAMADOL HCL 32080950861 Active Baltazar Childers MD Active NAPROXEN 500 MG TABS 1 tablet by mouth twice daily NAPROXEN 64309065802 No Longer Active Baltazar Childers MD Active PROAIR HFA 108 (90 BASE) MCG/ACT AERS 2 puffs four times a d ay as needed ALBUTEROL SULFATE 39301966382 Active Baltazar Childers MD Active DEPO-TESTOSTERONE 200 MG/ML OIL as directed RUFINO TOSTERONE CYPIONATE 78993941402 No Longer Active Baltazar Childers MD Active LIPITOR 20 MG TABS Take one by mouth daily in evening ATORVASTATIN CALCIUM 70392364572 No Longer Active Baltazar Childers MD Activ e CRESTOR 10 MG TABS 1 by mouth every day R OSUVASTATIN CALCIUM 96772312416 No Longer Active Baltazar Childers MD Activ e PHENTERMINE HCL 37.5 MG TABS Take one by mouth daily 2 PHENTERMINE HCL 86684882662 No Longer Active Baltazar Childers MD Activ e ROBAXIN-750 750 MG TABS Take one by mouth daily ME THOCARBAMOL 09947204002 Active Baltazar Childers MD Active TIZANIDINE HCL 4 MG TABS 1 daily as needed for muscle spasm 2011 TIZANIDINE HCL 12925250957 No Longer Active Dawna Salazar RN Active ONETOUCH ULTRA BLUE STRP Test twice a day GLUCO SE BLOOD 83761714802 Active Baltazar Childers MD Active [id number] 50-325-40 MG TABS 1 four time s a day as needed for heacache [id number] 95663427795 Active Baltazar Childers MD Active SUMATRIPTAN SUCCINATE 100 MG TABS 1 tablet by mouth at onset of migraine as needed SUMATRIPTAN SUCCINATE 78879834029 Active Baltazar bynum MD Active LORATADINE 10 MG TABS Take one by mouth daily LORATADINE 57014130894 Active Baltazar Childers MD Active FUROSEMIDE 40 MG TABS Take one by mouth daily FUROSEMIDE 82418293019 Active Baltazar Childers MD Active LISINOPRIL 20 MG TABS Take one by mouth daily at bedtime LISINOPRIL 42500488720 Active Baltazar Childers MD Active OMEPRAZOLE 20 MG CPDR Take one by mouth daily OMEPRAZOLE 77800608996 Active Baltazar Childers MD Active HYDROXYZINE HCL 25 MG TABS Take one by mouth daily HYDROXYZINE HCL 24801587638 Active Baltazar Childers MD Active GLIPIZIDE 10 MG TABS 1 tablet by mouth twice daily GLIPIZIDE 00498087393 Active Baltazar Childers MD Active ALPRAZOLAM 1 MG TABS 1 tablet by mouth daily at bedtime for restles s leg ALPRAZOLAM 56903245851 Active Baltazar Childers MD Active METFORMIN HCL 1000 MG TABS Take one by mouth twice daily METFORMIN HCL 47884236801 Active Baltazar Childers MD Active TIZANIDINE HCL 4 MG TABS 1 daily as needed for muscle spasm 2011 TIZANIDINE HCL 4 MG TABS 660140 TIZANIDINE HCL Inactiv e PHENTERMINE HCL 37.5 MG TABS Take one by mouth daily 2 PHENTERMINE HCL 37.5 MG TABS 900278 PHENTERMINE HCL Inactive CRESTOR 10 MG TABS 1 by mouth every day C RESTOR 10 MG TABS ROSUVASTATIN CALCIUM Inactive LIPITOR 20 MG TABS Take one by mouth daily in evening LIPITOR 20 MG TABS 508999 ATORVASTATIN CALCIUM Inactive DEPO-TESTOSTERONE 200 MG/ML OIL as directed 8 DEPO-TESTOSTERONE 200 MG/ML OIL 201586 TESTOSTERONE CYPIONATE Inactive NAPROXEN 500 MG TABS 1 tablet by mouth twice daily 201 07/27/22 NAPROXEN 500 MG TABS 836625 NAPROXEN Inactive GABAPENTIN 300 MG CAPS 1 po qd x 2 days, then 1 po BID x 2 d ays, then 1 po TID GABAPENTIN 300 MG CAPS 222392 GABAPENTIN Inact amie Immunizations Vaccine Administration Date Value Standard Floyd cription pneumococcal immunization administered Pneumovax 23 [CVX33] pneumococcal polysaccharide vaccine, 23 valent Seasonal influenza vaccine, injectable, containing preservative, for > 3 years old (Afluria, FluLaval, Fluzone, Fluvirin, Fluarix, Agriflu(>= 18 yo)) Fluzone (>3 yrs.) [[id number]] Influenza, seasonal, inject able Seasonal influenza vaccine, injectable, containing preservative, for > 3 years old (Afluria, FluLaval, Fluzone, Fluvirin, Fluarix, Agriflu(>= 18 yo)) Fluzone (>3 yrs.) [[id number]] Influenza, seasonal, inject able Vital Signs Date [...] C - Chemistry sodium, serum 140 mmol/L 509-149 7301/02/26 potassium, serum 5.3 mmol/L 3.5-5.2 chloride, serum [...] Panel - Chemistry sodium, serum 136 mmol/L 188-161 1524/01/06 potassium, serum 5.1 mmol/L 3.5-5.2 chloride, serum [...] mg/g mg/g{creat} 0-29 cholesterol, serum 319 mg/dL 396-726 4829/08/21 triglyceride, serum, fasting 546 mg/dL 30-200 HDL cholesterol, serum 39 mg/dL 32-96 LDL cholesterol, serum 167.00 mg/dL 5.00-130.00 hemoglobin A1C, blood, as % of total hemoglobin 7.7 % 4.3-6.0 sodium, serum 138 mmol/L 885-753 1657/08/21 potassium, serum 4.3 mmol/L 3.5-5.2 chloride, serum [...] mg/dL Encounters Code Encounter Date Provider Facility CPT-87071 Level 4 Est. Patient 12:20:13 CDT Baltazar Childers MD [facility] CPT-58572 Level 4 Est. 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 Patient 14:18:34 PROCESS CONTROL TECH Baltazar Childers MD [facility] CPT-88187 Level 4 Est. Patient 15:18:29 CDT Baltazar Childers MD [facility] CPT-50112 Level 3 Est. Patient 12:45:34 CDT Baltazar Childers MD [facility] CPT-28515 Level 3 Est. Patient 10:10:11 CDT Baltazar Childers MD [facility] CPT-80058 Level 3 Est. Patient 14:07:50 CDT Baltazar Childers MD [facility] CPT-24877 Level 4 Est. 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 CPT-68370 Pneumovax 23 15:17:19 PROCESS CONTROL TECH CPT-52265 Pneumovax 14:52:45 PROCESS CONTROL TECH CPT-67119 Venipuncture Draw Fee 14:06:30 PROCESS CONTROL TECH CPT-000 Give Appropriate Flu Vaccine 14:18:34 PROCESS CONTROL TECH 2 CPT-96653 Administration single or combination vac cine inc oral 14:46:00 PROCESS CONTROL TECH CPT-13753 Influenza split virus > age 3 14:46:00 PROCESS CONTROL TECH CPT-OV Office Visit 19:13:16 CDT CPT-62651 Zostavax 18:41:56 CDT CPT-98250 Administration single or combination vac cine inc oral 12:56:39 CDT CPT-78681 Zoster Vaccine (Zostavax) 12:56:39 CDT 2012 CPT-30410 Venipuncture Draw Fee 10:58:57 CDT CPT-70500 Sono pelvis non OB uterus ovaries cervix 17:45:04 CDT CPT-57083 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
--- OUTSIDE RECORDS SUMMARY | 2019-10-27 14:05 | XMS REPORT | Clinical Summary ---
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 Benign neoplasm of colon PERIPHERAL NEUROPATHY [...] tab every 6-8 hour s PRN HYDROCODONE-ACETAMINOPHEN 17766736089 Active Baltazar Childers MD Active NORTRIPTYLINE HCL 50 MG CAPS 1 every night for neuropathy 4 NORTRIPTYLINE HCL 95907746983 Active Baltazar Childers MD Acti ve GABAPENTIN 300 MG CAPS 1 three times a day GABAPE NTIN 38660801234 Active Baltazar Childers MD Active GABAPENTIN 300 MG CAPS 1 po qd x 2 days, then 1 po BID x 2 d ays, then 1 po TID GABAPENTIN 21151210349 No Longer Active Baltazar silverman MD Active TRAMADOL HCL 50 MG TABS 1 twice a day as needed for pain TRAMADOL HCL 76452192547 Active Baltazar Childers MD Active NAPROXEN 500 MG TABS 1 tablet by mouth twice daily NAPROXEN 60428522049 No Longer Active Baltazar Childers MD Active PROAIR HFA 108 (90 BASE) MCG/ACT AERS 2 puffs four times a d ay as needed ALBUTEROL SULFATE 60234720541 Active Baltazar Childers MD Active DEPO-TESTOSTERONE 200 MG/ML OIL as directed RUFINO TOSTERONE CYPIONATE 93377563729 No Longer Active Baltazar Childers MD Active LIPITOR 20 MG TABS Take one by mouth daily in evening ATORVASTATIN CALCIUM 79018935658 No Longer Active Baltazar Childers MD Activ e CRESTOR 10 MG TABS 1 by mouth every day R OSUVASTATIN CALCIUM 92287329388 No Longer Active Baltazar Childers MD Activ e PHENTERMINE HCL 37.5 MG TABS Take one by mouth daily 2 PHENTERMINE HCL 22125815948 No Longer Active Baltazar Childers MD Activ e ROBAXIN-750 750 MG TABS Take one by mouth daily ME THOCARBAMOL 05036176895 Active Baltazar Childers MD Active TIZANIDINE HCL 4 MG TABS 1 daily as needed for muscle spasm 2011 TIZANIDINE HCL 29760234803 No Longer Active Dawna Salazar RN Active ONETOUCH ULTRA BLUE STRP Test twice a day GLUCO SE BLOOD 82640556133 Active Baltazar Childers MD Active [id number] 50-325-40 MG TABS 1 four time s a day as needed for heacache [id number] 18474614887 Active Baltazar Childers MD Active SUMATRIPTAN SUCCINATE 100 MG TABS 1 tablet by mouth at onset of migraine as needed SUMATRIPTAN SUCCINATE 79727298522 Active Baltazar bynum MD Active LORATADINE 10 MG TABS Take one by mouth daily LORATADINE 96978489603 Active Baltazar Childers MD Active FUROSEMIDE 40 MG TABS Take one by mouth daily FUROSEMIDE 73723602248 Active Baltazar Childers MD Active LISINOPRIL 20 MG TABS Take one by mouth daily at bedtime LISINOPRIL 27758016370 Active Baltazar Childers MD Active OMEPRAZOLE 20 MG CPDR Take one by mouth daily OMEPRAZOLE 52588947732 Active Baltazar Childers MD Active HYDROXYZINE HCL 25 MG TABS Take one by mouth daily HYDROXYZINE HCL 41881865877 Active Baltazar Childers MD Active GLIPIZIDE 10 MG TABS 1 tablet by mouth twice daily GLIPIZIDE 47045363781 Active Baltazar Childers MD Active ALPRAZOLAM 1 MG TABS 1 tablet by mouth daily at bedtime for restles s leg ALPRAZOLAM 96149936142 Active Baltazar Childers MD Active METFORMIN HCL 1000 MG TABS Take one by mouth twice daily METFORMIN HCL 47581792889 Active Baltazar Childers MD Active TIZANIDINE HCL 4 MG TABS 1 daily as needed for muscle spasm 2011 TIZANIDINE HCL 4 MG TABS 425254 TIZANIDINE HCL Inactiv e PHENTERMINE HCL 37.5 MG TABS Take one by mouth daily 2 PHENTERMINE HCL 37.5 MG TABS 262292 PHENTERMINE HCL Inactive CRESTOR 10 MG TABS 1 by mouth every day C RESTOR 10 MG TABS ROSUVASTATIN CALCIUM Inactive LIPITOR 20 MG TABS Take one by mouth daily in evening LIPITOR 20 MG TABS 784985 ATORVASTATIN CALCIUM Inactive DEPO-TESTOSTERONE 200 MG/ML OIL as directed 8 DEPO-TESTOSTERONE 200 MG/ML OIL 785264 TESTOSTERONE CYPIONATE Inactive NAPROXEN 500 MG TABS 1 tablet by mouth twice daily 201 07/27/22 NAPROXEN 500 MG TABS 189690 NAPROXEN Inactive GABAPENTIN 300 MG CAPS 1 po qd x 2 days, then 1 po BID x 2 d ays, then 1 po TID GABAPENTIN 300 MG CAPS 521958 GABAPENTIN Inact amie Immunizations Vaccine Administration Date Value Standard Floyd cription pneumococcal immunization administered Pneumovax 23 [CVX33] pneumococcal polysaccharide vaccine, 23 valent Seasonal influenza vaccine, injectable, containing preservative, for > 3 years old (Afluria, FluLaval, Fluzone, Fluvirin, Fluarix, Agriflu(>= 18 yo)) Fluzone (>3 yrs.) [[id number]] Influenza, seasonal, inject able Seasonal influenza vaccine, injectable, containing preservative, for > 3 years old (Afluria, FluLaval, Fluzone, Fluvirin, Fluarix, Agriflu(>= 18 yo)) Fluzone (>3 yrs.) [[id number]] Influenza, seasonal, inject able Vital Signs Date [...] C - Chemistry sodium, serum 140 mmol/L 172-219 5983/02/26 potassium, serum 5.3 mmol/L 3.5-5.2 chloride, serum [...] 0.39 mg/dL 0.00-1.00 cholesterol, serum 345 mg/dL 261-910 3582/08/26 triglyceride, serum, fasting 635 mg/dL 30-200 HDL [...] Panel - Chemistry sodium, serum 136 mmol/L 462-704 7979/01/06 potassium, serum 5.1 mmol/L 3.5-5.2 chloride, serum [...] Panel - Chemistry sodium, serum 139 mmol/L 482-878 2717/08/26 potassium, serum 5.8 mmol/L 3.5-5.2 chloride, serum [...] mg/dL Encounters Code Encounter Date Provider Facility CPT-94460 Level 4 Est. Patient 12:20:13 CDT Baltazar Childers MD [facility] CPT-48574 Level 4 Est. 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 Patient 14:18:34 STRAIGHT PIN MAKING MACHINE OPERATOR Baltazar Childers MD [facility] CPT-50240 Level 4 Est. Patient 15:18:29 CDT Baltazar Childers MD [facility] CPT-71780 Level 3 Est. Patient 12:45:34 CDT Baltazar Childers MD [facility] CPT-02911 Level 3 Est. Patient 10:10:11 CDT Baltazar Childers MD [facility] CPT-64977 Level 3 Est. Patient 14:07:50 CDT Baltazar Childers MD [facility] CPT-07776 Level 4 Est. 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 Patient 14:45:38 CDT Baltazar Childers MD [facility] CPT-44457 Level 4 New Patient 12:30:48 CDT Baltazar hinton MD [facility] Procedures Code Procedure Name Date Entry Date Standard Desc ription CPT-94548 First Vx Component - Ix admi n via ID IM or jet inj without physician counseling 15:17:19 STRAIGHT PIN MAKING MACHINE OPERATOR CPT-32419 Pneumovax 15:17:19 STRAIGHT PIN MAKING MACHINE OPERATOR CPT-90852 Pneumovax 14:52:45 STRAIGHT PIN MAKING MACHINE OPERATOR CPT-35199 Venipuncture Draw Fee 14:06:30 STRAIGHT PIN MAKING MACHINE OPERATOR CPT-000 Give Appropriate Flu Vaccine 14:18:34 STRAIGHT PIN MAKING MACHINE OPERATOR 2 CPT-04381 Administration single or combination vac cine inc oral 14:46:00 STRAIGHT PIN MAKING MACHINE OPERATOR CPT-61215 Influenza split virus > age 3 14:46:00 STRAIGHT PIN MAKING MACHINE OPERATOR CPT-OV Office Visit 19:13:16 CDT CPT-99870 Zostavax 18:41:56 CDT CPT-90358 Administration single or combination vac cine inc oral 12:56:39 CDT CPT-61122 Zoster Vaccine (Zostavax) 12:56:39 CDT 2012 CPT-66413 Venipuncture Draw Fee 10:58:57 CDT CPT-33753 Sono pelvis non OB uterus ovaries cervix 17:45:04 CDT CPT-85254 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
--- OUTSIDE RECORDS SUMMARY | 2019-10-27 14:05 | XMS REPORT | Clinical Summary ---
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 Benign neoplasm of colon PERIPHERAL NEUROPATHY 356.9 [...] y atherosclerosis of unspecified type of vessel, nome or graft OTH NONSPC ABN FINDNG RAD&OTH [...] tab every 6-8 hour s PRN HYDROCODONE-ACETAMINOPHEN 33195204199 Active Baltazar Childers MD Active NORTRIPTYLINE HCL 50 MG CAPS 1 every night for neuropathy 4 NORTRIPTYLINE HCL 12263470606 Active Baltazar Childers MD Acti ve GABAPENTIN 300 MG CAPS 1 three times a day GABAPE NTIN 35339409295 Active Baltazar Childers MD Active GABAPENTIN 300 MG CAPS 1 po qd x 2 days, then 1 po BID x 2 d ays, then 1 po TID GABAPENTIN 40816716177 No Longer Active Baltazar silverman MD Active TRAMADOL HCL 50 MG TABS 1 twice a day as needed for pain TRAMADOL HCL 03715802128 Active Baltazar Childers MD Active NAPROXEN 500 MG TABS 1 tablet by mouth twice daily NAPROXEN 68650768074 No Longer Active Baltazar Childers MD Active PROAIR HFA 108 (90 BASE) MCG/ACT AERS 2 puffs four times a d ay as needed ALBUTEROL SULFATE 51982489830 Active Baltazar Childers MD Active DEPO-TESTOSTERONE 200 MG/ML OIL as directed RUFINO TOSTERONE CYPIONATE 89260442352 No Longer Active Baltazar Childers MD Active LIPITOR 20 MG TABS Take one by mouth daily in evening ATORVASTATIN CALCIUM 97717708085 No Longer Active Baltazar Childers MD Activ e CRESTOR 10 MG TABS 1 by mouth every day R OSUVASTATIN CALCIUM 91738558381 No Longer Active Baltazar Childers MD Activ e PHENTERMINE HCL 37.5 MG TABS Take one by mouth daily 2 PHENTERMINE HCL 27604347334 No Longer Active Baltazar Childers MD Activ e ROBAXIN-750 750 MG TABS Take one by mouth daily ME THOCARBAMOL 19594069297 Active Baltazar Childers MD Active TIZANIDINE HCL 4 MG TABS 1 daily as needed for muscle spasm 2011 TIZANIDINE HCL 44796756682 No Longer Active Dawna Salazar RN Active ONETOUCH ULTRA BLUE STRP Test twice a day GLUCO SE BLOOD 27429626525 Active Baltazar Childers MD Active [id number] 50-325-40 MG TABS 1 four time s a day as needed for heacache [id number] 28857015756 Active Baltazar Childers MD Active SUMATRIPTAN SUCCINATE 100 MG TABS 1 tablet by mouth at onset of migraine as needed SUMATRIPTAN SUCCINATE 58324676600 Active Baltazar bynum MD Active LORATADINE 10 MG TABS Take one by mouth daily LORATADINE 36916138706 Active Baltazar Childers MD Active FUROSEMIDE 40 MG TABS Take one by mouth daily FUROSEMIDE 57897874962 Active Baltazar Childers MD Active LISINOPRIL 20 MG TABS Take one by mouth daily at bedtime LISINOPRIL 86978559042 Active Baltazar Childers MD Active OMEPRAZOLE 20 MG CPDR Take one by mouth daily OMEPRAZOLE 26790250659 Active Baltazar Childers MD Active HYDROXYZINE HCL 25 MG TABS Take one by mouth daily HYDROXYZINE HCL 92986364123 Active Baltazar Childers MD Active GLIPIZIDE 10 MG TABS 1 tablet by mouth twice daily GLIPIZIDE 82718875198 Active Baltazar Childers MD Active ALPRAZOLAM 1 MG TABS 1 tablet by mouth daily at bedtime for restles s leg ALPRAZOLAM 90942200233 Active Baltazar Childers MD Active METFORMIN HCL 1000 MG TABS Take one by mouth twice daily METFORMIN HCL 03180084844 Active Baltazar Childers MD Active TIZANIDINE HCL 4 MG TABS 1 daily as needed for muscle spasm 2011 TIZANIDINE HCL 4 MG TABS 406445 TIZANIDINE HCL Inactiv e PHENTERMINE HCL 37.5 MG TABS Take one by mouth daily 2 PHENTERMINE HCL 37.5 MG TABS 644742 PHENTERMINE HCL Inactive CRESTOR 10 MG TABS 1 by mouth every day C RESTOR 10 MG TABS ROSUVASTATIN CALCIUM Inactive LIPITOR 20 MG TABS Take one by mouth daily in evening LIPITOR 20 MG TABS 496588 ATORVASTATIN CALCIUM Inactive DEPO-TESTOSTERONE 200 MG/ML OIL as directed 8 DEPO-TESTOSTERONE 200 MG/ML OIL 216159 TESTOSTERONE CYPIONATE Inactive NAPROXEN 500 MG TABS 1 tablet by mouth twice daily 201 07/27/22 NAPROXEN 500 MG TABS 944667 NAPROXEN Inactive GABAPENTIN 300 MG CAPS 1 po qd x 2 days, then 1 po BID x 2 d ays, then 1 po TID GABAPENTIN 300 MG CAPS 488921 GABAPENTIN Inact amie Immunizations Vaccine Administration Date Value Standard Floyd cription pneumococcal immunization administered Pneumovax 23 [CVX33] pneumococcal polysaccharide vaccine, 23 valent Seasonal influenza vaccine, injectable, containing preservative, for > 3 years old (Afluria, FluLaval, Fluzone, Fluvirin, Fluarix, Agriflu(>= 18 yo)) Fluzone (>3 yrs.) [[id number]] Influenza, seasonal, inject able Seasonal influenza vaccine, injectable, containing preservative, for > 3 years old (Afluria, FluLaval, Fluzone, Fluvirin, Fluarix, Agriflu(>= 18 yo)) Fluzone (>3 yrs.) [[id number]] Influenza, seasonal, inject able Vital Signs Date [...] C - Chemistry sodium, serum 140 mmol/L 835-292 8271/02/26 potassium, serum 5.3 mmol/L 3.5-5.2 chloride, serum [...] 0.39 mg/dL 0.00-1.00 cholesterol, serum 345 mg/dL 839-923 4239/08/26 triglyceride, serum, fasting 635 mg/dL 30-200 HDL [...] Panel - Chemistry sodium, serum 136 mmol/L 935-407 4361/01/06 potassium, serum 5.1 mmol/L 3.5-5.2 chloride, serum [...] mg/g mg/g{creat} 0-29 cholesterol, serum 319 mg/dL 080-796 4524/08/21 triglyceride, serum, fasting 546 mg/dL 30-200 HDL cholesterol, serum 39 mg/dL 32-96 LDL cholesterol, serum 167.00 mg/dL 5.00-130.00 hemoglobin A1C, blood, as % of total hemoglobin 7.7 % 4.3-6.0 sodium, serum 138 mmol/L 642-284 8195/08/21 potassium, serum 4.3 mmol/L 3.5-5.2 chloride, serum [...] Panel - Chemistry sodium, serum 139 mmol/L 980-454 7004/08/26 potassium, serum 5.8 mmol/L 3.5-5.2 chloride, serum [...] mg/dL Encounters Code Encounter Date Provider Facility CPT-20625 Level 4 Est. Patient 12:20:13 CDT Baltazar Childers MD [facility] CPT-09625 Level 4 Est. Patient 14:52:45 CORPORATE OFFICER Baltazar Childers MD [facility] CPT-14527 Level 4 Est. Patient 14:18:34 CORPORATE OFFICER Baltazar Childers MD [facility] CPT-20874 Level 4 Est. Patient 15:18:29 CDT Baltazar Childers MD [facility] CPT-03840 Level 3 Est. Patient 12:45:34 CDT Baltazar Childers MD [facility] CPT-95359 Level 3 Est. Patient 10:10:11 CDT Baltazar Childers MD [facility] CPT-18993 Level 3 Est. Patient 14:07:50 CDT Baltazar Childers MD [facility] CPT-05501 Level 4 Est. Patient 12:26:10 CORPORATE OFFICER Baltazar Childers MD [facility] CPT-75166 Level 4 Est. Patient 14:45:38 CDT Baltazar Childers MD [facility] CPT-76479 Level 4 New Patient 12:30:48 CDT Baltazar hinton MD [facility] Procedures Code Procedure Name Date Entry Date Standard Desc ription CPT-93780 First Vx Component - Ix admi n via ID IM or jet inj without physician counseling 15:17:19 CORPORATE OFFICER CPT-95328 Pneumovax 15:17:19 CORPORATE OFFICER CPT-16608 Pneumovax 14:52:45 CORPORATE OFFICER CPT-25992 Venipuncture Draw Fee 14:06:30 CORPORATE OFFICER CPT-000 Give Appropriate Flu Vaccine 14:18:34 CORPORATE OFFICER 2 CPT-07358 Administration single or combination vac cine inc oral 14:46:00 CORPORATE OFFICER CPT-43165 Influenza split virus > age 3 14:46:00 CORPORATE OFFICER CPT-OV Office Visit 19:13:16 CDT CPT-11781 Zostavax 18:41:56 CDT CPT-98024 Administration single or combination vac cine inc oral 12:56:39 CDT CPT-85364 Zoster Vaccine (Zostavax) 12:56:39 CDT 2012 CPT-01675 Venipuncture Draw Fee 10:58:57 CDT CPT-09968 Sono pelvis non OB uterus ovaries cervix 17:45:04 CDT CPT-63373 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
--- OUTSIDE RECORDS SUMMARY | 2019-10-27 14:05 | XMS REPORT | Clinical Summary ---
Author Author Admin, Elba [facility] Address Unknown Phone Allergies, Adverse Reactions, Alerts [...] y atherosclerosis of unspecified type of vessel, paimiut [...] tab every 6-8 hour s PRN HYDROCODONE-ACETAMINOPHEN 46452631303 Active Baltazar Childers MD Active NORTRIPTYLINE HCL 50 MG CAPS 1 every night for neuropathy 4 NORTRIPTYLINE HCL 39493892532 Active Baltazar Childers MD Acti ve GABAPENTIN 300 MG CAPS 1 three times a day GABAPE NTIN 86248888593 Active Baltazar Childers MD Active GABAPENTIN 300 MG CAPS 1 po qd x 2 days, then 1 po BID x 2 d ays, then 1 po TID GABAPENTIN 37125970881 No Longer Active Baltazar silverman MD Active TRAMADOL HCL 50 MG TABS 1 twice a day as needed for pain TRAMADOL HCL 01573149253 Active Baltazar Childers MD Active NAPROXEN 500 MG TABS 1 tablet by mouth twice daily NAPROXEN 19151220858 No Longer Active Baltazar Childers MD Active PROAIR HFA 108 (90 BASE) MCG/ACT AERS 2 puffs four times a d ay as needed ALBUTEROL SULFATE 93173100198 Active Baltazar Childers MD Active DEPO-TESTOSTERONE 200 MG/ML OIL as directed RUFINO TOSTERONE CYPIONATE 93772427223 No Longer Active Baltazar Childers MD Active LIPITOR 20 MG TABS Take one by mouth daily in evening ATORVASTATIN CALCIUM 08019553929 No Longer Active Baltazar Childers MD Activ e CRESTOR 10 MG TABS 1 by mouth every day R OSUVASTATIN CALCIUM 00205876616 No Longer Active Baltazar Childers MD Activ e PHENTERMINE HCL 37.5 MG TABS Take one by mouth daily 2 PHENTERMINE HCL 02504265641 No Longer Active Baltazar Childers MD Activ e ROBAXIN-750 750 MG TABS Take one by mouth daily ME THOCARBAMOL 43881631790 Active Baltazar Childers MD Active TIZANIDINE HCL 4 MG TABS 1 daily as needed for muscle spasm 2011 TIZANIDINE HCL 70897211694 No Longer Active Dawna Salazar RN Active ONETOUCH ULTRA BLUE STRP Test twice a day GLUCO SE BLOOD 16941589542 Active Baltazar Childers MD Active [id number]-[id number] 50-325-40 MG TABS 1 four time s a day as needed for heacache [id number] 11065877793 Active Baltazar Childers MD Active SUMATRIPTAN SUCCINATE 100 MG TABS 1 tablet by mouth at onset of migraine as needed SUMATRIPTAN SUCCINATE 99539102311 Active Shireen Miller APRN Active LORATADINE 10 MG TABS Take one by mouth daily LORATADINE 05771326242 Active Brad Hughes Active FUROSEMIDE 40 MG TABS Take one by mouth daily FUROSEMIDE 81588462455 Active Shireen Miller APRN Active LISINOPRIL 20 MG TABS Take one by mouth daily at bedtime LISINOPRIL 91850128350 Active Shireen Miller APRN Active OMEPRAZOLE 20 MG CPDR Take one by mouth daily OMEPRAZOLE 49987211699 Active Shireen Miller APRN Active HYDROXYZINE HCL 25 MG TABS Take one by mouth daily HYDROXYZINE HCL 13749326701 Active Shireen Miller APRN Active GLIPIZIDE 10 MG TABS 1 tablet by mouth twice daily GLIPIZIDE 77562031415 Active Shireen Miller APRN Active ALPRAZOLAM 1 MG TABS 1 tablet by mouth daily at bedtime for restles s leg ALPRAZOLAM 87370330867 Active Baltazar Childers MD Active METFORMIN HCL 1000 MG TABS Take one by mouth twice daily METFORMIN HCL 34180096843 Active Shireen Miller APRN Active TIZANIDINE HCL 4 MG TABS 1 daily as needed for muscle spasm 2011 TIZANIDINE HCL 4 MG TABS 131742 TIZANIDINE HCL Inactiv e PHENTERMINE HCL 37.5 MG TABS Take one by mouth daily 2 PHENTERMINE HCL 37.5 MG TABS 205641 PHENTERMINE HCL Inactive CRESTOR 10 MG TABS 1 by mouth every day C RESTOR 10 MG TABS ROSUVASTATIN CALCIUM Inactive LIPITOR 20 MG TABS Take one by mouth daily in evening LIPITOR 20 MG TABS 151498 ATORVASTATIN CALCIUM Inactive DEPO-TESTOSTERONE 200 MG/ML OIL as directed 8 DEPO-TESTOSTERONE 200 MG/ML OIL 882328 TESTOSTERONE CYPIONATE Inactive NAPROXEN 500 MG TABS 1 tablet by mouth twice daily 201 07/27/22 NAPROXEN 500 MG TABS 641606 NAPROXEN Inactive GABAPENTIN 300 MG CAPS 1 po qd x 2 days, then 1 po BID x 2 d ays, then 1 po TID GABAPENTIN 300 MG CAPS 472183 GABAPENTIN Inact amie Immunizations Vaccine Administration Date Value Standard Floyd cription pneumococcal immunization administered Pneumovax 23 [CVX33] pneumococcal polysaccharide vaccine, 23 valent Seasonal influenza vaccine, injectable, containing preservative, for > 3 years old (Afluria, FluLaval, Fluzone, Fluvirin, Fluarix, Agriflu(>= 18 yo)) Fluzone (>3 yrs.) [[id number]] Influenza, seasonal, inject able Seasonal influenza vaccine, injectable, containing preservative, for > 3 years old (Afluria, FluLaval, Fluzone, Fluvirin, Fluarix, Agriflu(>= 18 yo)) Fluzone (>3 yrs.) [[id number]] Influenza, seasonal, inject able Vital Signs Date [...] C - Chemistry sodium, serum 140 mmol/L 314-880 0791/02/26 potassium, serum 5.3 mmol/L 3.5-5.2 chloride, serum 101 mmol/L 98-107 carbon dioxide, venous blood 36.9 mmol/L 21.0-32 .0 blood glucose 151 mg/dL 65-110 calcium, serum 8.7 mg/dL 8.5-10.1 urea nitrogen, blood 19 mg/dL 7-18 creatinine, serum 1.60 mg/dL 0.60-1.30 hemoglobin A1C, blood, as % of total hemoglobin 7.9 % 4.3-6.0 Lab Report: CBC, Basic Metabolic Panel, HGBA1C - Chemistry sodium, serum 138 mmol/L 685-839 1528/05/23 potassium, serum 4.9 mmol/L 3.5-5.2 chloride, serum 98 mmol/L 98-107 carbon dioxide, venous blood 28.8 mmol/L 21.0-32 .0 blood glucose 116 mg/dL 65-110 calcium, serum 9.2 mg/dL 8.5-10.1 urea nitrogen, blood 24 mg/dL 7-18 creatinine, serum 2.00 mg/dL 0.60-1.30 hemoglobin A1C, blood, as % of total hemoglobin 7.1 % 4.3-6.0 Lab Report: CBC, Basic Metabolic Panel, HGBA1C - Hematology erythrocyte (RBC) count 3.76 UL 10*6/mm3 4.04-5.48 hemoglobin, blood 11.8 g/dL 12.0-16.0 hematocrit, blood 36.8 % 36.0-46.0 mean corpuscular volume, RBC 98 fL 80-97 mean corpuscular hemoglobin, RBC 31.4 pg 27. 0-31.2 leukocyte count, blood 6.3 UL 10*3/mm3 4.6-10.2 mean corpuscular hemoglobin concentration, RBC 32.1 G/DL [...] 0.39 mg/dL 0.00-1.00 cholesterol, serum 345 mg/dL 808-119 5684/08/26 triglyceride, serum, fasting 635 mg/dL 30-200 HDL [...] 4.04-5.4 8 hemoglobin, blood 11.3 g/dL 12.0-16.0 platelet count 301 10^3/MM^3 10*3/mm3 527-885 8215/08/26 hematocrit, blood 35.5 % 36.0-46.0 mean corpuscular hemoglobin concentration, RBC 31.8 G/DL % 31.8-35.4 red blood cell distribution width 14.5 % 11 .6-14.8 mean corpuscular volume, RBC 96 fL 80-97 mean corpuscular hemoglobin, RBC 30.6 pg 27. 0-31.2 Lab Report: CBC, Comp. Metabolic Panel, Lipid Panel, HGBA1C, MICROALBUMI ... - Lab microalbumin, urine 10 0-19 Lab Report: CBC, Renal Panel - Chemistry sodium, serum 136 mmol/L 723-063 8632/01/06 potassium, serum 5.1 mmol/L 3.5-5.2 chloride, serum [...] 11 .6-14.8 platelet count 346 10^3/MM^3 10*3/mm3 040-763 1632/01/06 leukocyte count, blood 7.5 10^3/MM^3 10*3/mm3 4.6-10.2 [...] Panel - Chemistry sodium, serum 139 mmol/L 879-753 8708/08/26 potassium, serum 5.8 mmol/L 3.5-5.2 chloride, serum 98 mmol/L 98-107 carbon dioxide, venous blood 33.0 mmol/L 21.0-32 .0 blood glucose 107 mg/dL 65-110 urea nitrogen, blood 26 mg/dL 7-18 creatinine, serum 1.80 mg/dL 0.60-1.30 calcium, serum 9.3 mg/dL 8.5-10.1 sodium, serum 138 mmol/L 966-576 3853/06/17 creatinine, serum 1.60 mg/dL 0.60-1.30 calcium, serum [...] ysis glucose, urine, semiquantitative Negative Neg ative urine color Straw Colorless;Lightyellow;St raw;Yellow appearance, urine Clear Clear urobilinogen, urine, semiquantitative (dipstick) 0.2 Normal leukocyte esterase, urine, by dipstick Negative Negative nitrite, urine, semiquantitative Negative Neg ative pH, urine, semiquantitative 6.0 5.0-8.5 specific gravity, urine 1.010 1.000-1.030 ketones, urine, by test strip Negative Negati ve bilirubin, urine Negative Negative glucose, urine, semiquantitative Negative Neg ative urobilinogen, [...] mg/dL Encounters Code Encounter Date Provider Facility CPT-00838 Level 4 Est. Patient 14:52:45 HUMAN RESOURCES RECORDS CLERK Baltazar Childers MD [facility] CPT-26550 Level 4 Est. Patient 14:18:34 HUMAN RESOURCES RECORDS CLERK Baltazar Childers MD [facility] CPT-33894 Level 4 Est. Patient 15:18:29 CDT Baltazar Childers MD [facility] CPT-59673 Level 3 Est. Patient 12:45:34 CDT Baltazar Childers MD [facility] CPT-12311 Level 3 Est. Patient 10:10:11 CDT Baltazar Childers MD [facility] CPT-77673 Level 3 Est. Patient 14:07:50 CDT Baltazar Childers MD [facility] CPT-89236 Level 4 Est. Patient 12:26:10 HUMAN RESOURCES RECORDS CLERK Baltazar Childers MD [facility] CPT-88491 Level 4 Est. Patient 14:45:38 CDT Baltazar Childers MD [facility] CPT-25352 Level 4 New Patient 12:30:48 CDT Baltazar hinton MD [facility] Procedures Code Procedure Name Date Entry Date Standard Desc ription CPT-07531 First Vx Component - Ix admi n via ID IM or jet inj without physician counseling 15:17:19 HUMAN RESOURCES RECORDS CLERK CPT-76637 Pneumovax 23 15:17:19 HUMAN RESOURCES RECORDS CLERK CPT-20413 Pneumovax 14:52:45 HUMAN RESOURCES RECORDS CLERK CPT-93578 Venipuncture Draw Fee 14:06:30 HUMAN RESOURCES RECORDS CLERK CPT-000 Give Appropriate Flu Vaccine 14:18:34 HUMAN RESOURCES RECORDS CLERK 2 CPT-99839 Administration single or combination vac cine inc oral 14:46:00 HUMAN RESOURCES RECORDS CLERK CPT-06807 Influenza split virus > age 3 14:46:00 HUMAN RESOURCES RECORDS CLERK CPT-OV Office Visit 19:13:16 CDT CPT-86223 Zostavax 18:41:56 CDT CPT-98632 Administration single or combination vac cine inc oral 12:56:39 CDT CPT-22573 Zoster Vaccine (Zostavax) 12:56:39 CDT 2012 CPT-24076 Venipuncture Draw Fee 10:58:57 CDT CPT-49995 Sono pelvis non OB uterus ovaries cervix 17:45:04 CDT CPT-72768 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
--- OUTSIDE RECORDS SUMMARY | 2019-10-27 14:06 | XMS REPORT | Clinical Summary ---
Author Author Admin, Elba [facility] Address Unknown Phone Unavailable Allergies, Adverse [...] unspecified RESTLESS LEG SYNDROME 333.94 Active Baltazar Nickerosn MD Restless legs syndrome (RLS) DIABETES MELLITUS [...] libido COLON POLYPS 211.3 Resolved Lolis Thomas [employer] ANALYST Benign neoplasm of colon PERIPHERAL NEUROPATHY [...] y atherosclerosis of unspecified type of vessel, [place] or graft OTH NONSPC ABN FINDNG RAD&OTH [...] MISC Test twice a day LANCET S 64227806720 Active Baltazar Childers MD Active TRUEDRAW LANCING DEVICE MISC Test twice a day L ANCET DEVICES 03094388613 Active Baltazra Childers MD Active TRUETRACK TEST STRP Test twice a day GLUCOSE BLOO D 63716131493 Active Baltazar Childers MD Active TRUETRACK BLOOD GLUCOSE W/DEVICE KIT Test twice a day BLOOD GLUCOSE MONITORING SUPPL 74610260046 Active Bella Suarez SURTASS ANALYST Active HYDROCODONE-ACETAMINOPHEN 7.5-325 MG TABS Take 1 tab every 6-8 hour s PRN HYDROCODONE-ACETAMINOPHEN 66039750477 Active Baltazar Childers MD Active NORTRIPTYLINE HCL 50 MG CAPS 1 every night for neuropathy 4 NORTRIPTYLINE HCL 14263520940 Active Baltazar Childers MD Acti ve GABAPENTIN 300 MG CAPS 1 three times a day GABAPE NTIN 17686678624 Active Baltazar Childers MD Active GABAPENTIN 300 MG CAPS 1 po qd x 2 days, then 1 po BID x 2 d ays, then 1 po TID GABAPENTIN 44614973970 No Longer Active Baltazar silverman MD Active TRAMADOL HCL 50 MG TABS 1 twice a day as needed for pain TRAMADOL HCL 60667652497 Active Baltazar Childers MD Active NAPROXEN 500 MG TABS 1 tablet by mouth twice daily NAPROXEN 37167946113 No Longer Active Baltazar Childers MD Active PROAIR HFA 108 (90 BASE) MCG/ACT AERS 2 puffs four times a d ay as needed ALBUTEROL SULFATE 84707504899 Active Baltazar Childers MD Active DEPO-TESTOSTERONE 200 MG/ML OIL as directed RUFINO TOSTERONE CYPIONATE 08325440833 No Longer Active Baltazar Childers MD Active LIPITOR 20 MG TABS Take one by mouth daily in evening ATORVASTATIN CALCIUM 38589932208 No Longer Active Baltazar Childers MD Activ e CRESTOR 10 MG TABS 1 by mouth every day R OSUVASTATIN CALCIUM 66903188117 No Longer Active Baltazar Childers MD Activ e PHENTERMINE HCL 37.5 MG TABS Take one by mouth daily 2 PHENTERMINE HCL 92988588147 No Longer Active Baltazar Childers MD Activ e ROBAXIN-750 750 MG TABS Take one by mouth daily ME THOCARBAMOL 43396557307 Active Baltazar hCilders MD Active TIZANIDINE HCL 4 MG TABS 1 daily as needed for muscle spasm 2011 TIZANIDINE HCL 98274793137 No Longer Active Dawna Salazar RN Active RexterUCH ULTRA BLUE STRP Test twice a day GLUCO SE BLOOD 07095183011 Active Baltazar Childers MD Active [id number] 50-325-40 MG TABS 1 four time s a day as needed for heacache [id number] 95404555434 Active Baltazar Childers MD Active SUMATRIPTAN SUCCINATE 100 MG TABS 1 tablet by mouth at onset of migraine as needed SUMATRIPTAN SUCCINATE 28592553155 Active Baltazar barron MD Active LORATADINE 10 MG TABS Take one by mouth daily LORATADINE 43464781774 Active Baltazar Childers MD Active FUROSEMIDE 40 MG TABS Take one by mouth daily FUROSEMIDE 31719874608 Active Baltazar Childers MD Active LISINOPRIL 20 MG TABS Take one by mouth daily at bedtime LISINOPRIL 46715909575 Active Baltazar Childers MD Active OMEPRAZOLE 20 MG CPDR Take one by mouth daily OMEPRAZOLE 81146781764 Active Baltazar Childers MD Active HYDROXYZINE HCL 25 MG TABS Take one by mouth daily HYDROXYZINE HCL 65044469656 Active Baltazar Childers MD Active GLIPIZIDE 10 MG TABS 1 tablet by mouth twice daily GLIPIZIDE 45241853572 Active Baltazar Childers MD Active ALPRAZOLAM 1 MG TABS 1 tablet by mouth daily at bedtime for restles s leg ALPRAZOLAM 42039584398 Active Baltazar Childers MD Active METFORMIN HCL 1000 MG TABS Take one by mouth twice daily METFORMIN HCL 97130372401 Active Baltazar Childers MD Active TIZANIDINE HCL 4 MG TABS 1 daily as needed for muscle spasm 2011 TIZANIDINE HCL 4 MG TABS 543088 TIZANIDINE HCL Inactiv e PHENTERMINE HCL 37.5 MG TABS Take one by mouth daily 2 PHENTERMINE HCL 37.5 MG TABS 198659 PHENTERMINE HCL Inactive CRESTOR 10 MG TABS 1 by mouth every day C RESTOR 10 MG TABS ROSUVASTATIN CALCIUM Inactive LIPITOR 20 MG TABS Take one by mouth daily in evening LIPITOR 20 MG TABS 512696 ATORVASTATIN CALCIUM Inactive DEPO-TESTOSTERONE 200 MG/ML OIL as directed 8 DEPO-TESTOSTERONE 200 MG/ML OIL 347021 TESTOSTERONE CYPIONATE Inactive NAPROXEN 500 MG TABS 1 tablet by mouth twice daily 201 07/27/22 NAPROXEN 500 MG TABS 080291 NAPROXEN Inactive GABAPENTIN 300 MG CAPS 1 po qd x 2 days, then 1 po BID x 2 d ays, then 1 po TID GABAPENTIN 300 MG CAPS 412857 GABAPENTIN Inact amie Immunizations Vaccine Administration Date Value Standard Floyd cription pneumococcal immunization administered Pneumovax 23 [CVX33] pneumococcal polysaccharide vaccine, 23 valent Seasonal influenza vaccine, injectable, containing preservative, for > 3 years old (Afluria, FluLaval, Fluzone, Fluvirin, Fluarix, Agriflu(>= 18 yo)) Fluzone (>3 yrs.) [GZS002] Influenza, seasonal, inject able Seasonal influenza vaccine, injectable, containing preservative, for > 3 years old (Afluria, FluLaval, Fluzone, Fluvirin, Fluarix, Agriflu(>= 18 yo)) Fluzone (>3 yrs.) [[id number]] Influenza, seasonal, inject able Vital Signs Date [...] Panel - Chemistry sodium, serum 139 mmol/L 755-974 7608/01/20 potassium, serum 5.3 mmol/L 3.5-5.2 chloride, serum [...] mg/g mg/g{creat} 0-29 cholesterol, serum 319 mg/dL 399-406 5473/08/21 triglyceride, serum, fasting 546 mg/dL 30-200 HDL cholesterol, serum 39 mg/dL 32-96 LDL cholesterol, serum 167.00 mg/dL 5.00-130.00 hemoglobin A1C, blood, as % of total hemoglobin 7.7 % 4.3-6.0 sodium, serum 138 mmol/L 381-308 2706/08/21 potassium, serum 4.3 mmol/L 3.5-5.2 chloride, serum [...] 0-19 Encounters Code Encounter Date Provider Facility CPT-59171 Level 4 Est. Patient 14:15:19 CDT Baltazar Childers MD [facility] CPT-77982 Level 4 Est. Patient 12:20:13 CDT Baltazar Childers MD [facility] CPT-30540 Level 4 Est. Patient 14:52:45 TAWER Baltazar Childers MD [facility] CPT-33282 Level 4 Est. Patient 14:18:34 TAWER Baltazar Childers MD [facility] CPT-35953 Level 4 Est. Patient 15:18:29 CDT Baltazar Childers MD [facility] CPT-12457 Level 3 Est. Patient 12:45:34 CDT Baltazar Childers MD [facility] CPT-99565 Level 3 Est. Patient 10:10:11 CDT Baltazar Childers MD [facility] CPT-79203 Level 3 Est. Patient 14:07:50 CDT Baltazar Childers MD [facility] CPT-09999 Level 4 Est. Patient 12:26:10 TAWER Baltazar Childers MD [facility] CPT-58205 Level 4 Est. Patient 14:45:38 CDT Baltazar Childers MD [facility] CPT-20902 Level 4 New Patient 12:30:48 CDT Baltazar hinton MD [facility] Procedures Code Procedure Name Date Entry Date Standard Desc ription CPT-83400 Venipuncture Draw Fee 12:10:27 TAWER CPT-54229 Fluzone Quadrivalent Intramuscular Suspe nsion 0.5 ML 10:49:13 CDT CPT-27676 First Vx Component - Ix admi n via ID IM or jet inj without physician counseling 15:17:19 TAWER CPT-67429 Pneumovax 23 15:17:19 TAWER CPT-84587 Pneumovax 14:52:45 TAWER CPT-61258 Venipuncture Draw Fee 14:06:30 TAWER CPT-000 Give Appropriate Flu Vaccine 14:18:34 TAWER 2 CPT-22501 Administration single or combination vac cine inc oral 14:46:00 TAWER CPT-90871 Influenza split virus > age 3 14:46:00 TAWER CPT-OV Office Visit 19:13:16 CDT CPT-31775 Zostavax 18:41:56 CDT CPT-19276 Administration single or combination vac cine inc oral 12:56:39 CDT CPT-34419 Zoster Vaccine (Zostavax) 12:56:39 CDT 2012 CPT-51188 Venipuncture Draw Fee 10:58:57 CDT CPT-53350 Sono pelvis non OB uterus ovaries cervix 17:45:04 CDT CPT-65687 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
--- OUTSIDE RECORDS SUMMARY | 2019-10-27 14:06 | XMS REPORT | Clinical Summary ---
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 Benign neoplasm of colon PERIPHERAL NEUROPATHY 356.9 [...] y atherosclerosis of unspecified type of vessel, [place] or graft OTH NONSPC ABN FINDNG [...] tab every 6-8 hour s PRN HYDROCODONE-ACETAMINOPHEN 36819910358 Active Baltazar Childers MD Active NORTRIPTYLINE HCL 50 MG CAPS 1 every night for neuropathy 4 NORTRIPTYLINE HCL 55827183357 Active Baltazar Childers MD Acti ve GABAPENTIN 300 MG CAPS 1 three times a day GABAPE NTIN 79293993955 Active Baltazar Childers MD Active GABAPENTIN 300 MG CAPS 1 po qd x 2 days, then 1 po BID x 2 d ays, then 1 po TID GABAPENTIN 86877593479 No Longer Active Baltazar silverman MD Active TRAMADOL HCL 50 MG TABS 1 twice a day as needed for pain TRAMADOL HCL 54895846404 Active Baltazar Childers MD Active NAPROXEN 500 MG TABS 1 tablet by mouth twice daily NAPROXEN 46937492388 No Longer Active Baltazar Childers MD Active PROAIR HFA 108 (90 BASE) MCG/ACT AERS 2 puffs four times a d ay as needed ALBUTEROL SULFATE 58522605383 Active Baltazar Childers MD Active DEPO-TESTOSTERONE 200 MG/ML OIL as directed RUFINO TOSTERONE CYPIONATE 09461094900 No Longer Active Baltazar Childers MD Active LIPITOR 20 MG TABS Take one by mouth daily in evening ATORVASTATIN CALCIUM 05567207389 No Longer Active Baltazar Childers MD Activ e CRESTOR 10 MG TABS 1 by mouth every day R OSUVASTATIN CALCIUM 19803108255 No Longer Active Baltazar Childers MD Activ e PHENTERMINE HCL 37.5 MG TABS Take one by mouth daily 2 PHENTERMINE HCL 72767869984 No Longer Active Baltazar Childers MD Activ e ROBAXIN-750 750 MG TABS Take one by mouth daily ME THOCARBAMOL 00848787256 Active Baltazar Childers MD Active TIZANIDINE HCL 4 MG TABS 1 daily as needed for muscle spasm 2011 TIZANIDINE HCL 10318647396 No Longer Active Dawna Salazar RN Active ONETOUCH ULTRA BLUE STRP Test twice a day GLUCO SE BLOOD 21875544379 Active Baltazar Childers MD Active [id number] 50-325-40 MG TABS 1 four time s a day as needed for heacache [id number] 69287158415 Active Baltazar Childers MD Active SUMATRIPTAN SUCCINATE 100 MG TABS 1 tablet by mouth at onset of migraine as needed SUMATRIPTAN SUCCINATE 66663400332 Active Baltazar bynum MD Active LORATADINE 10 MG TABS Take one by mouth daily LORATADINE 63962517133 Active Baltazar Childers MD Active FUROSEMIDE 40 MG TABS Take one by mouth daily FUROSEMIDE 26845711428 Active Baltazar Childers MD Active LISINOPRIL 20 MG TABS Take one by mouth daily at bedtime LISINOPRIL 48704770996 Active Baltazar Childers MD Active OMEPRAZOLE 20 MG CPDR Take one by mouth daily OMEPRAZOLE 60703907145 Active Baltazar Childers MD Active HYDROXYZINE HCL 25 MG TABS Take one by mouth daily HYDROXYZINE HCL 20783432513 Active Baltazar Childers MD Active GLIPIZIDE 10 MG TABS 1 tablet by mouth twice daily GLIPIZIDE 67383624221 Active Baltazar Childers MD Active ALPRAZOLAM 1 MG TABS 1 tablet by mouth daily at bedtime for restles s leg ALPRAZOLAM 30394625485 Active Baltazar Childers MD Active METFORMIN HCL 1000 MG TABS Take one by mouth twice daily METFORMIN HCL 14822827105 Active Baltazar Childers MD Active TIZANIDINE HCL 4 MG TABS 1 daily as needed for muscle spasm 2011 TIZANIDINE HCL 4 MG TABS 029387 TIZANIDINE HCL Inactiv e PHENTERMINE HCL 37.5 MG TABS Take one by mouth daily 2 PHENTERMINE HCL 37.5 MG TABS 218923 PHENTERMINE HCL Inactive CRESTOR 10 MG TABS 1 by mouth every day C RESTOR 10 MG TABS ROSUVASTATIN CALCIUM Inactive LIPITOR 20 MG TABS Take one by mouth daily in evening LIPITOR 20 MG TABS 874553 ATORVASTATIN CALCIUM Inactive DEPO-TESTOSTERONE 200 MG/ML OIL as directed 8 DEPO-TESTOSTERONE 200 MG/ML OIL 153388 TESTOSTERONE CYPIONATE Inactive NAPROXEN 500 MG TABS 1 tablet by mouth twice daily 201 07/27/22 NAPROXEN 500 MG TABS 799859 NAPROXEN Inactive GABAPENTIN 300 MG CAPS 1 po qd x 2 days, then 1 po BID x 2 d ays, then 1 po TID GABAPENTIN 300 MG CAPS 900894 GABAPENTIN Inact amie Immunizations Vaccine Administration Date Value Standard Floyd cription pneumococcal immunization administered Pneumovax 23 [CVX33] pneumococcal polysaccharide vaccine, 23 valent Seasonal influenza vaccine, injectable, containing preservative, for > 3 years old (Afluria, FluLaval, Fluzone, Fluvirin, Fluarix, Agriflu(>= 18 yo)) Fluzone (>3 yrs.) [YLE340] Influenza, seasonal, inject able Seasonal influenza vaccine, injectable, containing preservative, for > 3 years old (Afluria, FluLaval, Fluzone, Fluvirin, Fluarix, Agriflu(>= 18 yo)) Fluzone (>3 yrs.) [PBH284] Influenza, seasonal, inject able Vital Signs Date [...] C - Chemistry sodium, serum 140 mmol/L 338-007 8281/02/26 potassium, serum 5.3 mmol/L 3.5-5.2 chloride, serum [...] 0.39 mg/dL 0.00-1.00 cholesterol, serum 345 mg/dL 983-485 3061/08/26 triglyceride, serum, fasting 635 mg/dL 30-200 HDL [...] Panel - Chemistry sodium, serum 136 mmol/L 171-920 0879/01/06 potassium, serum 5.1 mmol/L 3.5-5.2 chloride, serum [...] Panel - Chemistry sodium, serum 139 mmol/L 092-703 3291/08/26 potassium, serum 5.8 mmol/L 3.5-5.2 chloride, serum [...] mg/dL Encounters Code Encounter Date Provider Facility CPT-85990 Level 4 Est. Patient 12:20:13 CDT Baltazar Childers MD [facility] CPT-46134 Level 4 Est. Patient 14:52:45 [employer] Baltazar Childers MD [facility] CPT-66467 Level 4 Est. Patient 14:18:34 [employer] Baltazar Childers MD [facility] CPT-52453 Level 4 Est. Patient 15:18:29 CDT Baltazar Childers MD [facility] CPT-25911 Level 3 Est. Patient 12:45:34 CDT Baltazar Childers MD [facility] CPT-06470 Level 3 Est. Patient 10:10:11 CDT Baltazar Childers MD [facility] CPT-30679 Level 3 Est. Patient 14:07:50 CDT Baltazar Childers MD [facility] CPT-86009 Level 4 Est. Patient 12:26:10 [employer] Baltazar Childers MD [facility] CPT-29385 Level 4 Est. Patient 14:45:38 CDT Baltazar Childers MD [facility] CPT-31982 Level 4 New Patient 12:30:48 CDT Baltazar hinton MD [facility] Procedures Code Procedure Name Date Entry Date Standard Desc ription CPT-38067 First Vx Component - Ix admi n via ID IM or jet inj without physician counseling 15:17:19 [employer] CPT-17211 Pneumovax 15:17:19 [employer] CPT-55248 Pneumovax 14:52:45 [employer] CPT-91535 Venipuncture Draw Fee 14:06:30 [employer] CPT-000 Give Appropriate Flu Vaccine 14:18:34 [employer] 2 CPT-96815 Administration single or combination vac cine inc oral 14:46:00 [employer] CPT-74813 Influenza split virus > age 3 14:46:00 [employer] CPT-OV Office Visit 19:13:16 CDT CPT-98917 Zostavax 18:41:56 CDT CPT-35177 Administration single or combination vac cine inc oral 12:56:39 CDT CPT-53670 Zoster Vaccine (Zostavax) 12:56:39 CDT 2012 CPT-52088 Venipuncture Draw Fee 10:58:57 CDT CPT-44653 Sono pelvis non OB uterus ovaries cervix 17:45:04 CDT CPT-26522 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
--- OUTSIDE RECORDS SUMMARY | 2019-10-27 14:06 | XMS REPORT | Clinical Summary ---
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 Benign neoplasm of colon PERIPHERAL NEUROPATHY 356.9 [...] y atherosclerosis of unspecified type of vessel, robinson [...] MISC Test twice a day LANCET S 92445942796 Active Baltazar Childers MD Active TRUEDRAW LANCING DEVICE MISC Test twice a day L ANCET DEVICES 91704859768 Active Baltazar Childers MD Active TRUETRACK TEST STRP Test twice a day GLUCOSE BLOO D 42456973234 Active Baltazar Childers MD Active TRUETRACK BLOOD GLUCOSE W/DEVICE KIT Test twice a day BLOOD GLUCOSE MONITORING SUPPL 60982749052 Active Bella Suarez NON PROFIT JOB TITLES Active HYDROCODONE-ACETAMINOPHEN 7.5-325 MG TABS Take 1 tab every 6-8 hour s PRN HYDROCODONE-ACETAMINOPHEN 84310614447 Active Baltazra Childers MD Active NORTRIPTYLINE HCL 50 MG CAPS 1 every night for neuropathy 4 NORTRIPTYLINE HCL 54831383086 Active Baltazar Childers MD Acti ve GABAPENTIN 300 MG CAPS 1 three times a day GABAPE NTIN 86072132798 Active Baltazar Childers MD Active GABAPENTIN 300 MG CAPS 1 po qd x 2 days, then 1 po BID x 2 d ays, then 1 po TID GABAPENTIN 20708232433 No Longer Active Baltazar silverman MD Active TRAMADOL HCL 50 MG TABS 1 twice a day as needed for pain TRAMADOL HCL 65200303546 Active Baltazar Childers MD Active NAPROXEN 500 MG TABS 1 tablet by mouth twice daily NAPROXEN 47705956910 No Longer Active Baltazar Childers MD Active PROAIR HFA 108 (90 BASE) MCG/ACT AERS 2 puffs four times a d ay as needed ALBUTEROL SULFATE 72520663350 Active Baltazar Childers MD Active DEPO-TESTOSTERONE 200 MG/ML OIL as directed RUFINO TOSTERONE CYPIONATE 03726175890 No Longer Active Baltazar Childers MD Active LIPITOR 20 MG TABS Take one by mouth daily in evening ATORVASTATIN CALCIUM 06534823229 No Longer Active Baltazar Childers MD Activ e CRESTOR 10 MG TABS 1 by mouth every day R OSUVASTATIN CALCIUM 05936088198 No Longer Active Baltazar Childers MD Activ e PHENTERMINE HCL 37.5 MG TABS Take one by mouth daily 2 PHENTERMINE HCL 33880673091 No Longer Active Baltazar Childers MD Activ e ROBAXIN-750 750 MG TABS Take one by mouth daily ME THOCARBAMOL 67975847227 Active Baltazar Childers MD Active TIZANIDINE HCL 4 MG TABS 1 daily as needed for muscle spasm 2011 TIZANIDINE HCL 54544379394 No Longer Active Dawna Salazar RN Active [employer] ULTRA BLUE STRP Test twice a day GLUCO SE BLOOD 01078404459 Active Baltazar Childers MD Active [id number] 50-325-40 MG TABS 1 four time s a day as needed for heacache [id number]-[id number] 10080111622 Active Baltazar Childers MD Active SUMATRIPTAN SUCCINATE 100 MG TABS 1 tablet by mouth at onset of migraine as needed SUMATRIPTAN SUCCINATE 81423814344 Active Baltazar barron MD Active LORATADINE 10 MG TABS Take one by mouth daily LORATADINE 42089387592 Active Baltazar Childers MD Active FUROSEMIDE 40 MG TABS Take one by mouth daily FUROSEMIDE 70741108939 Active Baltazar Childers MD Active LISINOPRIL 20 MG TABS Take one by mouth daily at bedtime LISINOPRIL 58666571823 Active Baltazar Childers MD Active OMEPRAZOLE 20 MG CPDR Take one by mouth daily OMEPRAZOLE 60830936673 Active Baltazar Childers MD Active HYDROXYZINE HCL 25 MG TABS Take one by mouth daily HYDROXYZINE HCL 21235613167 Active Baltazar Childers MD Active GLIPIZIDE 10 MG TABS 1 tablet by mouth twice daily GLIPIZIDE 00545454601 Active Baltazar Childers MD Active ALPRAZOLAM 1 MG TABS 1 tablet by mouth daily at bedtime for restles s leg ALPRAZOLAM 10591337071 Active Baltazar Childers MD Active METFORMIN HCL 1000 MG TABS Take one by mouth twice daily METFORMIN HCL 20058035959 Active Baltazar Childers MD Active TIZANIDINE HCL 4 MG TABS 1 daily as needed for muscle spasm 2011 TIZANIDINE HCL 4 MG TABS 737608 TIZANIDINE HCL Inactiv e PHENTERMINE HCL 37.5 MG TABS Take one by mouth daily 2 PHENTERMINE HCL 37.5 MG TABS 854927 PHENTERMINE HCL Inactive CRESTOR 10 MG TABS 1 by mouth every day C RESTOR 10 MG TABS ROSUVASTATIN CALCIUM Inactive LIPITOR 20 MG TABS Take one by mouth daily in evening LIPITOR 20 MG TABS 738823 ATORVASTATIN CALCIUM Inactive DEPO-TESTOSTERONE 200 MG/ML OIL as directed 8 DEPO-TESTOSTERONE 200 MG/ML OIL 597734 TESTOSTERONE CYPIONATE Inactive NAPROXEN 500 MG TABS 1 tablet by mouth twice daily 201 07/27/22 NAPROXEN 500 MG TABS 842512 NAPROXEN Inactive GABAPENTIN 300 MG CAPS 1 po qd x 2 days, then 1 po BID x 2 d ays, then 1 po TID GABAPENTIN 300 MG CAPS 659720 GABAPENTIN Inact amie Immunizations Vaccine Administration Date Value Standard Floyd cription pneumococcal immunization administered Pneumovax 23 [CVX33] pneumococcal polysaccharide vaccine, 23 valent Seasonal influenza vaccine, injectable, containing preservative, for > 3 years old (Afluria, FluLaval, Fluzone, Fluvirin, Fluarix, Agriflu(>= 18 yo)) Fluzone (>3 yrs.) [[id number]] Influenza, seasonal, inject able Seasonal influenza vaccine, injectable, containing preservative, for > 3 years old (Afluria, FluLaval, Fluzone, Fluvirin, Fluarix, Agriflu(>= 18 yo)) Fluzone (>3 yrs.) [[id number]] Influenza, seasonal, inject able Vital Signs Date [...] Panel - Chemistry sodium, serum 139 mmol/L 990-072 6964/01/20 potassium, serum 5.3 mmol/L 3.5-5.2 chloride, serum [...] mg/g mg/g{creat} 0-29 cholesterol, serum 319 mg/dL 513-786 0957/08/21 triglyceride, serum, fasting 546 mg/dL 30-200 HDL cholesterol, serum 39 mg/dL 32-96 LDL cholesterol, serum 167.00 mg/dL 5.00-130.00 hemoglobin A1C, blood, as % of total hemoglobin 7.7 % 4.3-6.0 sodium, serum 138 mmol/L 084-094 1738/08/21 potassium, serum 4.3 mmol/L 3.5-5.2 chloride, serum [...] 0-19 Encounters Code Encounter Date Provider Facility CPT-14087 Level 4 Est. Patient 14:15:19 CDT Baltazar Childers MD [facility] CPT-43569 Level 4 Est. Patient 12:20:13 CDT Baltazar Childers MD [facility] CPT-64234 Level 4 Est. Patient 14:52:45 INVASIVE CARDIOLOGIST Baltazar Childers MD [facility] CPT-24500 Level 4 Est. Patient 14:18:34 INVASIVE CARDIOLOGIST Baltazar Childers MD [facility] CPT-96449 Level 4 Est. Patient 15:18:29 CDT Baltazar Childers MD [facility] CPT-54821 Level 3 Est. Patient 12:45:34 CDT Baltazar Childers MD [facility] CPT-28560 Level 3 Est. Patient 10:10:11 CDT Baltazar Childers MD [facility] CPT-51325 Level 3 Est. Patient 14:07:50 CDT Baltazar Childers MD [facility] CPT-50046 Level 4 Est. Patient 12:26:10 INVASIVE CARDIOLOGIST Baltazar Childers MD [facility] CPT-71756 Level 4 Est. Patient 14:45:38 CDT Baltazar Childers MD [facility] CPT-19535 Level 4 New Patient 12:30:48 CDT Baltazar hinton MD [facility] Procedures Code Procedure Name Date Entry Date Standard Desc ription CPT-52195 Venipuncture Draw Fee 12:10:27 INVASIVE CARDIOLOGIST CPT-82792 Fluzone Quadrivalent Intramuscular Suspe nsion 0.5 ML 10:49:13 CDT CPT-22640 First Vx Component - Ix admi n via ID IM or jet inj without physician counseling 15:17:19 INVASIVE CARDIOLOGIST CPT-17000 Pneumovax 23 15:17:19 INVASIVE CARDIOLOGIST CPT-65582 Pneumovax 14:52:45 INVASIVE CARDIOLOGIST CPT-84419 Venipuncture Draw Fee 14:06:30 INVASIVE CARDIOLOGIST CPT-000 Give Appropriate Flu Vaccine 14:18:34 INVASIVE CARDIOLOGIST 2 CPT-39913 Administration single or combination vac cine inc oral 14:46:00 INVASIVE CARDIOLOGIST CPT-34505 Influenza split virus > age 3 14:46:00 INVASIVE CARDIOLOGIST CPT-OV Office Visit 19:13:16 CDT CPT-94367 Zostavax 18:41:56 CDT CPT-33850 Administration single or combination vac cine inc oral 12:56:39 CDT CPT-82668 Zoster Vaccine (Zostavax) 12:56:39 CDT 2012 CPT-36774 Venipuncture Draw Fee 10:58:57 CDT CPT-99592 Sono pelvis non OB uterus ovaries cervix 17:45:04 CDT CPT-01395 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
--- OUTSIDE RECORDS SUMMARY | 2019-10-27 14:06 | XMS REPORT | Clinical Summary ---
Author Author Admin, Elba Lance [facility] Address Unknown Phone Unavailable Allergies, Adverse [...] libido COLON POLYPS 211.3 Resolved Lolis Thomas INTENSIVE CARE UNIT REGISTERED NURSE Benign neoplasm of colon PERIPHERAL NEUROPATHY 356.9 [...] y atherosclerosis of unspecified type of vessel, circle or graft OTH NONSPC ABN FINDNG RAD&OTH [...] MISC Test twice a day LANCET S 80849654389 Active Baltazar Childers MD Active TRUEDRAW LANCING DEVICE MISC Test twice a day L ANCET DEVICES 53353194213 Active Baltazar Childers MD Active TRUETRACK TEST STRP Test twice a day GLUCOSE BLOO D 04348199825 Active Baltazar Childers MD Active TRUETRACK BLOOD GLUCOSE W/DEVICE KIT Test twice a day BLOOD GLUCOSE MONITORING SUPPL 56122603169 Active Bella Yokum INTENSIVE CARE UNIT REGISTERED NURSE Active HYDROCODONE-ACETAMINOPHEN 7.5-325 MG TABS Take 1 tab every 6-8 hour s PRN HYDROCODONE-ACETAMINOPHEN 52174318182 Active Bella Yogeovanyum INTENSIVE CARE UNIT REGISTERED NURSE Active NORTRIPTYLINE HCL 50 MG CAPS 1 every night for neuropathy 4 NORTRIPTYLINE HCL 90556194126 Active Baltazar Childers MD Acti ve GABAPENTIN 300 MG CAPS 1 three times a day GABAPE NTIN 45708372665 Active Baltazar Childers MD Active GABAPENTIN 300 MG CAPS 1 po qd x 2 days, then 1 po BID x 2 d ays, then 1 po TID GABAPENTIN 41138884020 No Longer Active Baltazar silverman MD Active TRAMADOL HCL 50 MG TABS 1 twice a day as needed for pain TRAMADOL HCL 08949792191 Active Baltazar Childers MD Active NAPROXEN 500 MG TABS 1 tablet by mouth twice daily NAPROXEN 02626375374 No Longer Active Baltazar Childers MD Active PROAIR HFA 108 (90 BASE) MCG/ACT AERS 2 puffs four times a d ay as needed ALBUTEROL SULFATE 52428671633 Active Baltazar Childers MD Active DEPO-TESTOSTERONE 200 MG/ML OIL as directed RFUINO TOSTERONE CYPIONATE 87114474859 No Longer Active Baltazar Childers MD Active LIPITOR 20 MG TABS Take one by mouth daily in evening ATORVASTATIN CALCIUM 67105881587 No Longer Active Baltazar Childers MD Activ e CRESTOR 10 MG TABS 1 by mouth every day R OSUVASTATIN CALCIUM 32498102159 No Longer Active Baltazar Childers MD Activ e PHENTERMINE HCL 37.5 MG TABS Take one by mouth daily 2 PHENTERMINE HCL 44521440088 No Longer Active Baltazar Childers MD Activ e ROBAXIN-750 750 MG TABS Take one by mouth daily ME THOCARBAMOL 42082941138 Active Baltazar Childers MD Active TIZANIDINE HCL 4 MG TABS 1 daily as needed for muscle spasm 2011 TIZANIDINE HCL 90720474880 No Longer Active Dawna Salazar RN Active [employer] ULTRA BLUE STRP Test twice a day GLUCO SE BLOOD 46926720224 Active Baltazar Childers MD Active EXYFBQTBPN-[id number]-VGHQNHIK 50-325-40 MG TABS 1 four time s a day as needed for heacache [id number]-AMAITELM 05848958802 Active Baltazar Childers MD Active SUMATRIPTAN SUCCINATE 100 MG TABS 1 tablet by mouth at onset of migraine as needed SUMATRIPTAN SUCCINATE 77066967017 Active Baltazar barron MD Active LORATADINE 10 MG TABS Take one by mouth daily LORATADINE 08675054413 Active Baltazar Childers MD Active FUROSEMIDE 40 MG TABS Take one by mouth daily FUROSEMIDE 50919402873 Active Baltazar Childers MD Active LISINOPRIL 20 MG TABS Take one by mouth daily at bedtime LISINOPRIL 49437036036 Active Baltazar Childers MD Active OMEPRAZOLE 20 MG CPDR Take one by mouth daily OMEPRAZOLE 02235409199 Active Baltazar Childers MD Active HYDROXYZINE HCL 25 MG TABS Take one by mouth daily HYDROXYZINE HCL 05345634768 Active Baltazar Childers MD Active GLIPIZIDE 10 MG TABS 1 tablet by mouth twice daily GLIPIZIDE 37701272500 Active Baltazar Childers MD Active ALPRAZOLAM 1 MG TABS 1 tablet by mouth daily at bedtime for restles s leg ALPRAZOLAM 42313079100 Active Baltazar Childers MD Active METFORMIN HCL 1000 MG TABS Take one by mouth twice daily METFORMIN HCL 64726608581 Active Baltazar Childers MD Active TIZANIDINE HCL 4 MG TABS 1 daily as needed for muscle spasm 2011 TIZANIDINE HCL 4 MG TABS 563590 TIZANIDINE HCL Inactiv e PHENTERMINE HCL 37.5 MG TABS Take one by mouth daily 2 PHENTERMINE HCL 37.5 MG TABS 987612 PHENTERMINE HCL Inactive CRESTOR 10 MG TABS 1 by mouth every day C RESTOR 10 MG TABS ROSUVASTATIN CALCIUM Inactive LIPITOR 20 MG TABS Take one by mouth daily in evening LIPITOR 20 MG TABS 206958 ATORVASTATIN CALCIUM Inactive DEPO-TESTOSTERONE 200 MG/ML OIL as directed 8 DEPO-TESTOSTERONE 200 MG/ML OIL 274571 TESTOSTERONE CYPIONATE Inactive NAPROXEN 500 MG TABS 1 tablet by mouth twice daily 201 07/27/22 NAPROXEN 500 MG TABS 937050 NAPROXEN Inactive GABAPENTIN 300 MG CAPS 1 po qd x 2 days, then 1 po BID x 2 d ays, then 1 po TID GABAPENTIN 300 MG CAPS 968108 GABAPENTIN Inact amie Immunizations Vaccine Administration Date Value Standard Floyd cription pneumococcal immunization administered Pneumovax 23 [CVX33] pneumococcal polysaccharide vaccine, 23 valent Seasonal influenza vaccine, injectable, containing preservative, for > 3 years old (Afluria, FluLaval, Fluzone, Fluvirin, Fluarix, Agriflu(>= 18 yo)) Fluzone (>3 yrs.) [[id number]] Influenza, seasonal, inject able Seasonal influenza vaccine, injectable, containing preservative, for > 3 years old (Afluria, FluLaval, Fluzone, Fluvirin, Fluarix, Agriflu(>= 18 yo)) Fluzone (>3 yrs.) [SPH584] Influenza, seasonal, inject able Vital Signs Date [...] C - Chemistry sodium, serum 140 mmol/L 683-337 5036/02/26 potassium, serum 5.3 mmol/L 3.5-5.2 chloride, serum [...] Panel - Chemistry sodium, serum 139 mmol/L 198-618 8997/01/20 potassium, serum 5.3 mmol/L 3.5-5.2 chloride, serum [...] mg/g mg/g{creat} 0-29 cholesterol, serum 319 mg/dL 804-227 6928/08/21 triglyceride, serum, fasting 546 mg/dL 30-200 HDL cholesterol, serum 39 mg/dL 32-96 LDL cholesterol, serum 167.00 mg/dL 5.00-130.00 hemoglobin A1C, blood, as % of total hemoglobin 7.7 % 4.3-6.0 sodium, serum 138 mmol/L 642-115 5974/08/21 potassium, serum 4.3 mmol/L 3.5-5.2 chloride, serum [...] mg/dL Encounters Code Encounter Date Provider Facility CPT-99013 Level 4 Est. Patient 14:15:19 CDT Baltazar Childers MD [facility] CPT-32920 Level 4 Est. Patient 12:20:13 CDT Baltazar Childers MD [facility] CPT-80260 Level 4 Est. Patient 14:52:45 PRINT DEVELOPER AUTOMATIC Baltazar Childers MD [facility] CPT-19228 Level 4 Est. Patient 14:18:34 PRINT DEVELOPER AUTOMATIC Baltazar Childers MD [facility] CPT-27615 Level 4 Est. Patient 15:18:29 CDT Baltazar Childers MD [facility] CPT-20924 Level 3 Est. Patient 12:45:34 CDT Baltazar Childers MD [facility] CPT-73782 Level 3 Est. Patient 10:10:11 CDT Baltazar Childers MD [facility] CPT-87445 Level 3 Est. Patient 14:07:50 CDT Baltazar Childers MD [facility] CPT-65821 Level 4 Est. Patient 12:26:10 PRINT DEVELOPER AUTOMATIC Baltazar Childers MD [facility] CPT-91765 Level 4 Est. Patient 14:45:38 CDT Baltazar Childers MD [facility] CPT-82265 Level 4 New Patient 12:30:48 CDT Baltazar hinton MD [facility] Procedures Code Procedure Name Date Entry Date Standard Desc ription CPT-84817 Venipuncture Draw Fee 12:10:27 PRINT DEVELOPER AUTOMATIC CPT-99060 Fluzone Quadrivalent Intramuscular Suspe nsion 0.5 ML 10:49:13 CDT CPT-26289 First Vx Component - Ix admi n via ID IM or jet inj without physician counseling 15:17:19 PRINT DEVELOPER AUTOMATIC CPT-17345 Pneumovax 15:17:19 PRINT DEVELOPER AUTOMATIC CPT-93812 Pneumovax 14:52:45 PRINT DEVELOPER AUTOMATIC CPT-09137 Venipuncture Draw Fee 14:06:30 PRINT DEVELOPER AUTOMATIC CPT-000 Give Appropriate Flu Vaccine 14:18:34 PRINT DEVELOPER AUTOMATIC 2 CPT-15918 Administration single or combination vac cine inc oral 14:46:00 PRINT DEVELOPER AUTOMATIC CPT-76639 Influenza split virus > age 3 14:46:00 PRINT DEVELOPER AUTOMATIC CPT-OV Office Visit 19:13:16 CDT CPT-80138 Zostavax 18:41:56 CDT CPT-98727 Administration single or combination vac cine inc oral 12:56:39 CDT CPT-67263 Zoster Vaccine (Zostavax) 12:56:39 CDT 2012 CPT-17517 Venipuncture Draw Fee 10:58:57 CDT CPT-06747 Sono pelvis non OB uterus ovaries cervix 17:45:04 CDT CPT-01630 Sono retroperitoneal complete kidneys an d bladder 17:14:36 CDT CPT-OV Office Visit 14:59:38 PRINT DEVELOPER AUTOMATIC CPT-J1070 Depo Testosterone 100 mg 14:50:13 CDT 03/05 CPT-49035 Abx/Therapy Injection 14:50:13 CDT CPT-80325 Administration single or combination vac cine inc oral 14:34:43 CDT CPT-03095 Influenza split virus > age 3 14:34:43 CDT CPT-J1070 Depo Testosterone 100 mg 17:37:13 CDT 01/11 CPT-02141 Abx/Therapy Injection 17:37:13 CDT CPT-16636 Venipuncture Draw Fee 16:30:13 CDT CPT-15818 Venipuncture Draw Fee 16:29:43 CDT CPT-J1070 Depo Testosterone 100 mg 14:45:38 CDT 01/11
[2019-10-27 14:07] LABS: BENZODIAZEPINES SCREEN URINE POSITIVE (NEGATIVE); COCAINE SCREEN URINE NEGATIVE (NEGATIVE)
--- OUTSIDE RECORDS SUMMARY | 2019-10-27 14:07 | XMS REPORT | Continuity of Care Document ---
Demographics Preferred Language Unknown Marital Status Unknown Uatsdin Affiliation Unknown Race Unknown Ethnic Group Unknown Author Organization Unknown Address Unknown Phone Unavailable Allergies Active Description Code Type Severity Reaction Onset Reported/Identified Relationship to Patient Clinical Status Yes ASA (aspirin) 10999340 CLASS N/A N/A Yes CODEINE [id number] DRUG N/A N/A Yes PCN (penicillin) 32064857 CLASS N/A N/A Yes ASA (aspirin) 16115066 CLASS N/A N/A Yes CODEINE [id number] DRUG N/A N/A Yes PCN (penicillin) 10974950 CLASS N/A N/A Yes codeine Drug Allergy 06/22/2012 Yes aspirin [id number] Drug Allergy Unknown N/A 05/09/2015 Yes codeine [id number] Drug Allergy Unknown N/A 05/09/2015 Medications There is no data. Problems Date Dx Coded Attending Type Code Diagnosis Diagnosed By 06/22/2012 NIKHIL AVILA MD V65 .45 Anticipatory Guidance: Unsafe Sexual Practices 09/26/2012 NIKHIL AVILA MD V76 .51 COLON CANCER SCREENING 05/09/2015 SUSY CANNON DO Ot K76.0 FATTY (CHANGE OF) LIVER, NOT ELSEWHERE C 05/09/2015 SUSY CANNON DO Ot N39.0 URINARY TRACT INFECTION, SITE NOT SPECIF 05/09/2015 SUSY CANNON DO Ot N85.2 HYPERTROPHY OF UTERUS 02/24/2017 Baltazar Childers MD J02.8 Pharyngitis 05/20/2017 Baltazar Childers MD Z68.3 7 BMI 37-37.9 adult 05/20/2017 Baltazar Childers MD E66.0 1 Morbid obesity 11/17/2017 Baltazar Childers MD E66.0 1 Morbid obesity due to excess calories 11/17/2017 Baltazar Childers MD E78.0 1 Familial hypercholesterolemia 01/29/2018 Baltazar Childers MD E66.9 Obesity, class III 04/30/2018 Baltazar Childers MD Z12.3 1 Screening mammogram 05/11/2018 Baltazar Childers MD E66.0 1 Morbid obesity due to excess calories 05/11/2018 Baltazar Childers MD68.3 6 BMI 36-36.9 07/28/2018 Baltazar Childers MD N18.3 Chronic kidney disease, stage 3 07/28/2018 Baltazar Childers MD E66.0 1 Morbid obesity due to excess calories 10/26/2018 Baltazar Childers MD E66.9 Obesity Class II (BMI 35-39.9) 10/26/2018 Baltazar Childers MD G47.3 0 Sleep apnea 11/09/2018 Baltazar Childers MD N18.4 Chronic kidney disease, stage 4 (severe) 11/09/2018 Baltazar Childers MD Z68.3 7 BMI 37-37.9 11/30/2018 Baltazar Childers MD E66.0 1 Morbid obesity due to excess calories 01/17/2019 JIMENEZ GRESHAM DO Ot E11. 9 TYPE 2 DIABETES MELLITUS WITHOUT COMPLIC 01/17/2019 JIMENEZ GRESHAM DO Ot Z01.810 ENCOUNTER FOR PREPROCEDURAL CARDIOVASCUL 01/17/2019 JIMENEZ GRESHAM DO Ot Z01.811 ENCOUNTER FOR PREPROCEDURAL RESPIRATORY 01/17/2019 JIMENEZ GRESHAM DO Ot Z01.812 ENCOUNTER FOR PREPROCEDURAL LABORATORY E 01/19/2019 Baltazar Childers MD E66.0 1 Morbid obesity due to excess calories 01/19/2019 Baltazar Childers MD N18.3 Chronic kidney disease, stage 3 01/19/2019 Baltazar Childers MD E66.9 Obesity Class II (BMI 35-39.9) 01/19/2019 Baltazar Childers MD Z68.3 6 BMI 36-36.9 01/28/2019 JIMENEZ GRESHAM DO Ot E11. 9 TYPE 2 DIABETES MELLITUS WITHOUT COMPLIC 01/28/2019 JIMENEZ GRESHAM DO Ot Z01.810 ENCOUNTER FOR PREPROCEDURAL CARDIOVASCUL 01/28/2019 JIMENEZ GRESHAM DO Ot Z01.811 ENCOUNTER FOR PREPROCEDURAL RESPIRATORY 01/28/2019 JIMENEZ GRESHAM DO Ot Z01.812 ENCOUNTER FOR PREPROCEDURAL LABORATORY E 04/12/2019 Baltazar Childers MD E66.9 Obesity Class II (BMI 35-39.9) 07/11/2019 Baltazar Childers MD E66.0 1 Morbid obesity due to excess calories 07/11/2019 Baltazar Childers MD Z23 Influenza Vaccination for Prophylaxis 07/11/2019 Baltazar Childers MD Z68.3 7 BMI 37-37.9 07/11/2019 Reason For Visit E11.65 Type 2 diabetes mellitus with hyperglycemia 07/11/2019 Reason For Visit E11.65 Type 2 diabetes mellitus with hyperglycemia 10/07/2019 DESMOND PERAZA MD, Ot I12.9 HYPERTENSIVE CHRONIC KIDNEY DISEASE W ST 10/07/2019 DESMOND PERAZA MD, Ot N18.3 CHRONIC KIDNEY DISEASE, STAGE 3 (MODERAT 10/12/2019 Baltazar Childers MD E66.0 1 Morbid obesity due to excess calories 10/12/2019 Baltazar Childers MD Z68.3 6 BMI 36-36.9 10/20/2019 DESMOND PERAZA MD, Ot I12.9 HYPERTENSIVE CHRONIC KIDNEY DISEASE W ST 10/20/2019 DESMOND PERAZA MD, Ot N18.3 CHRONIC KIDNEY DISEASE, STAGE 3 (MODERAT Procedures Code Description [place] [address] ROUT INE VENIPUNCTURE 06/22/2012 79926 HIV ANTIBODIES (RML) 06/22/2012 86645 HEP B SURFACE ANTIGEN (STATE) 06/22/2012 Results Test Result Range Complete blood count (CBC) with automate d white blood cell (WBC) differential - 01/13/19 13:44 Blood leukocytes automated count (number/volume) 6.3 10*3/uL 4.3-11.0 Blood erythrocytes automated count (number/volume) 4.17 10*6/uL 4.35-5.85 Venous blood hemoglobin measurement (mass/volume) 12.3 g/dL 11.5-16.0 Blood hematocrit (volume fraction) 39 % 35-52 Automated erythrocyte mean corpuscular volume 92 [ foz_us] 80-99 Automated erythrocyte mean corpuscular h emoglobin (mass per erythrocyte) 30 pg 25-34 Automated erythrocyte mean corpuscular h emoglobin concentration measurement (mass/volume) 32 g/dL 32-36 Automated erythrocyte distribution width ratio 12. 9 % 10.0- 14.5 Automated blood platelet count (count/volume) 306 10*3/uL 130-400 Automated blood platelet mean volume measurement 8.9 [foz_us] 7.4-10.4 Automated blood neutrophils/100 leukocytes 64 % 42-75 Automated blood lymphocytes/100 leukocytes 26 % 12-44 Blood monocytes/100 leukocytes 5 % 0-12 Automated blood eosinophils/100 leukocytes 4 % 0-10 Automated blood basophils/100 leukocytes 0 % 0-10 Blood neutrophils automated count (number/volume) 4.1 10*3 1.8-7.8 Blood lymphocytes automated count (number/volume) 1.7 10*3 1.0-4.0 Blood monocytes automated count (number/volume) 0. 3 10*3 0.0-1.0 Automated eosinophil count 0.3 10*3/uL 0 .0-0.3 Automated blood basophil count (count/volume) 0.0 10*3/uL 0.0-0.1 Comprehensive metabolic panel - 01/13/19 13:44 Serum or plasma sodium measurement (moles/volume) 139 mmol/L 135-145 Serum or plasma potassium measurement (moles/volume) 4.9 mmol/L 3.6-5.0 Serum or plasma chloride measurement (moles/volume) 102 mmol/L 98-107 Carbon dioxide 28 mmol/L 21-32 Serum or plasma anion gap determination (moles/volume) 9 mmol/L 5-14 Serum or plasma urea nitrogen measurement (mass/volume ) 20 mg/dL 7-18 Serum or plasma creatinine measurement (mass/volume) 2.12 mg/dL 0.60-1.30 Serum or plasma urea nitrogen/creatinine mass ratio 9 NRG Serum or plasma creatinine measurement w ith calculation of estimated glomerular filtration rate 24 NRG Serum or plasma glucose measurement (mass/volume) 161 mg/dL 70-105 Serum or plasma calcium measurement (mass/volume) 10.9 mg/dL 8.5-10.1 Serum or plasma total bilirubin measurement (mass/volu me) 0.5 mg/dL 0.1-1.0 Serum or plasma alkaline phosphatase delmy surement (enzymatic activity/volume) 65 U/L 40-136 Serum or plasma aspartate aminotransfera se measurement (enzymatic activity/volume) 22 U/L 5-34 Serum or plasma alanine aminotransferase measurement (enzymatic activity/volume) 32 U/L 0-55 Serum or plasma protein measurement (mass/volume) 7.9 g/dL 6.4-8.2 Serum or plasma albumin measurement (mass/volume) 4.5 g/dL 3.2-4.5 CALCIUM CORRECTED 10.5 mg/dL 8.5-10.1 Hemoglobin A1c measurement - 01/13/19 13 :44 Blood hemoglobin A1C measurement (mass/volume) 8.1 % 4.0-5.6 MEAN BLOOD GLUCOSE 186 % <=126 RENAL PROFILE - 04/06/19 13:41 GLUCOSE 281 mg/dL 65-99 UREA NITROGEN (BUN) 22 mg/dL 7-25 CREATININE 1.68 mg/dL 0.50-1.05 eGFR NON-AFR. FRENCH 33 mL/min/1.73m2 > OR = 60 eGFR 38 mL/min/1.73m2 > OR = 60 BUN/CREATININE RATIO 13 (calc) 6-22 SODIUM 138 mmol/L 135-146 POTASSIUM 5.6 mmol/L 3.5-5.3 CHLORIDE 100 mmol/L 98-110 CARBON DIOXIDE 30 mmol/L 20-32 CALCIUM 10.2 mg/dL 8.6-10.4 ALBUMIN 4.0 g/dL 3.6-5.1 PHOSPHATE ( PHOSPHORUS) 4.0 mg/dL 2.5- 4.5 RENAL PROFILE - 04/11/19 14:29 GLUCOSE 294 mg/dL 65-99 UREA NITROGEN (BUN) 23 mg/dL 7-25 CREATININE 1.60 mg/dL 0.50-1.05 eGFR NON-AFR. FRENCH 35 mL/min/1.73m2 > OR = 60 eGFR 40 mL/min/1.73m2 > OR = 60 BUN/CREATININE RATIO 14 (calc) 6-22 SODIUM 137 mmol/L 135-146 POTASSIUM 5.5 mmol/L 3.5-5.3 CHLORIDE 101 mmol/L 98-110 CARBON DIOXIDE 29 mmol/L 20-32 CALCIUM 10.1 mg/dL 8.6-10.4 ALBUMIN 3.9 g/dL 3.6-5.1 PHOSPHATE ( PHOSPHORUS) 3.9 mg/dL 2.5- 4.5 Lipid Panel Screen - 07/11/19 14:42 Chol 195 mg/dL 0-199 Trig 373 mg/dL 0-149 HDL 47 mg/dL 40-60 LDL 73 mg/dL 0-130 Magnesium - 07/11/19 14:42 Magnesium Lvl 1.6 mg/dL 1.6-2.8 Lipid Panel Screen - 07/11/19 17:00 Chol 195 mg/dL 0-199 Trig 367 mg/dL 0-149 HDL 49 mg/dL 40-60 LDL 73 mg/dL 0-130 Magnesium - 07/11/19 17:00 Magnesium Lvl 1.5 mg/dL 1.6-2.8 Automated blood complete blood count (he mogram) panel - 10/06/19 14:31 Blood leukocytes automated count (number/volume) 9.5 10*3/uL 4.3-11.0 Blood erythrocytes automated count (number/volume) 4.21 10*6/uL 4.35-5.85 Venous blood hemoglobin measurement (mass/volume) 11.6 g/dL 11.5-16.0 Blood hematocrit (volume fraction) 37 % 35-52 Automated erythrocyte mean corpuscular volume 88 [ foz_us] 80-99 Automated erythrocyte mean corpuscular h emoglobin (mass per erythrocyte) 28 pg 25-34 Automated erythrocyte mean corpuscular h emoglobin concentration measurement (mass/volume) 31 g/dL 32-36 Automated erythrocyte distribution width ratio 15. 9 % 10.0- 14.5 Automated blood platelet count (count/volume) 378 10*3/uL 130-400 Automated blood platelet mean volume measurement 9.0 [foz_us] 7.4-10.4 Serum or plasma renal function panel (Na , K, Cl, CO2, BUN, Cr, glucose,Ca, phos, alb) - 10/06/19 14:31 Serum or plasma sodium measurement (moles/volume) 140 mmol/L 135-145 Serum or plasma potassium measurement (moles/volume) 4.9 mmol/L 3.6-5.0 Serum or plasma chloride measurement (moles/volume) 103 mmol/L 98-107 Carbon dioxide 28 mmol/L 21-32 Serum or plasma anion gap determination (moles/volume) 9 mmol/L 5-14 Serum or plasma urea nitrogen measurement (mass/volume ) 28 mg/dL 7-18 Serum or plasma creatinine measurement (mass/volume) 2.09 mg/dL 0.60-1.30 Serum or plasma urea nitrogen/creatinine mass ratio 13 NRG Serum or plasma creatinine measurement w ith calculation of estimated glomerular filtration rate 24 NRG Serum or plasma glucose measurement (mass/volume) 222 mg/dL 70-105 Serum or plasma calcium measurement (mass/volume) 10.5 mg/dL 8.5-10.1 Serum or plasma albumin measurement (mass/volume) 4.3 g/dL 3.2-4.5 Serum or plasma phosphate measurement (mass/volume) 3.3 mg/dL 2.3-4.7 Automated blood complete blood count (he mogram) panel - 10/25/19 14:50 Blood leukocytes automated count (number/volume) 11.4 10*3/uL 4.3-11.0 Blood erythrocytes automated count (number/volume) 3.50 10*6/uL 4.35-5.85 Venous blood hemoglobin measurement (mass/volume) 9.6 g/dL 11.5-16.0 Blood hematocrit (volume fraction) 31 % 35-52 Automated erythrocyte mean corpuscular volume 89 [ foz_us] 80-99 Automated erythrocyte mean corpuscular h emoglobin (mass per erythrocyte) 27 pg 25-34 Automated erythrocyte mean corpuscular h emoglobin concentration measurement (mass/volume) 31 g/dL 32-36 Automated erythrocyte distribution width ratio 15. 3 % 10.0- 14.5 Automated blood platelet count (count/volume) 309 10*3/uL 130-400 Automated blood platelet mean volume measurement 9.4 [foz_us] 7.4-10.4 Serum or plasma renal function panel (Na , K, Cl, CO2, BUN, Cr, glucose,Ca, phos, alb) - 10/25/19 14:50 Serum or plasma sodium measurement (moles/volume) 140 mmol/L 135-145 Serum or plasma potassium measurement (moles/volume) 4.9 mmol/L 3.6-5.0 Serum or plasma chloride measurement (moles/volume) 104 mmol/L 98-107 Carbon dioxide 25 mmol/L 21-32 Serum or plasma anion gap determination (moles/volume) 11 mmol/L 5-14 Serum or plasma urea nitrogen measurement (mass/volume ) 17 mg/dL 7-18 Serum or plasma creatinine measurement (mass/volume) 1.83 mg/dL 0.60-1.30 Serum or plasma urea nitrogen/creatinine mass ratio 9 NRG Serum or plasma creatinine measurement w ith calculation of estimated glomerular filtration rate 28 NRG Serum or plasma glucose measurement (mass/volume) 198 mg/dL 70-105 Serum or plasma calcium measurement (mass/volume) 10.2 mg/dL 8.5-10.1 Serum or plasma albumin measurement (mass/volume) 4.0 g/dL 3.2-4.5 Serum or plasma phosphate measurement (mass/volume) 2.8 mg/dL 2.3-4.7 Encounters ACCT No. Visit Date/Time Discharge Status Pt. Type Provider Facility Loc./Unit Complaint [id number] 07/11/2019 18:16:00 Document Registration [id number] 07/11/2019 14:42:00 Document Registration [id number] 03/22/2019 01:21:07 ACT Document Registration [id number] 10/06/2019 14:15:00 020 23:59:59 CLS Outpatient DESMOND PERAZA MD [facility] LAB CHRONIC KIDNEY DISEASE [id number] 01/13/2019 13:36:00 019 23:59:59 CLS Outpatient JIMENEZ GRESHAM DO [facility] CARD PRE-OP EXAM [id number] 05/09/2015 17:58:00 015 20:34:00 DIS Emergency KASASNDRA DOAPA K [facility] ER ABD PAIN [id number] 10/25/2019 14:38:[address] Outpatient DESMOND PERAZA MD [facility] LAB N18.3,I10 [id number] 04/05/2019 14:04:44 04/05/2019 23:59: 59 CLS Outpatient Jimenez Gresham [id number] 03/22/2019 11:54:29 03/22/2019 23:59: 59 CLS Outpatient Jimenez Gresham [id number] 12/17/2018 15:57:36 12/17/2018 23:59: 59 CLS Outpatient Jimenez Gresham [id number] 11/16/2018 16:06:52 11/16/2018 23:59: 59 CLS Outpatient Jimenez Gresham [id number] 08/19/2018 18:20:10 08/19/2018 23:59: 59 CLS Outpatient Destin Kelly [place] [id number] 10/12/2019 15:35:01 ACT Unknown Baltazar Childers MD [id number] 03/21/2019 15:53:47 Document Registration [id number] 07/11/2019 18:16:00 Document Registration [id number] 07/11/2019 14:42:00 Document Registration [id number] 02/28/2019 07:36:47 Document Registration [id number] 01/21/2019 01:39:36 Document Registration [id number] 12/01/2018 12:39:29 Document Registration [id number] 01/09/2018 20:50:09 Document Registration [id number] 06/22/2012 13:01:00 06/22/2012 23:59: 59 CLS Outpatient MARGARITA COON, NIKHIL [place] [id number] 01/10/2019 12:40:00 01/10/2019 23:59:5 9 CLS Outpatient EMILY MONDRAGON [facility] [id number] 04/11/2019 14:00:00 Document Registration [id number] 04/06/2019 13:20:00 Document Registration
[2019-10-27 14:08] LABS: AMPHETAMINE SCREEN, URINE NEGATIVE (NEGATIVE); BARBITURATE SCREEN URINE NEGATIVE (NEGATIVE); CANNABINOID SCREEN, URINE NEGATIVE (NEGATIVE); METHADONE STAT NEGATIVE (NEGATIVE); METHAMPHETAMINE SCREEN URINE S NEGATIVE (NEGATIVE); OPIATE SCREEN URINE POSITIVE (NEGATIVE); OXYCODONE STAT NEGATIVE (NEGATIVE); PROPOXYPHENE STAT NEGATIVE (NEGATIVE); TRICYCLIC ANTIDEPRESSANTS SCRE POSITIVE (NEGATIVE)
[2019-10-27] MEDS ORDERED: FUROSEMIDE 40 MG/4 ML INJ (LASIX) IVP ONE (14:15)
--- NOTE | 2019-10-27 15:12 | NUR ---
Patient accidently pulled out iV to the righht wrist. New IV started in the left upper arm.
--- NOTE | 2019-10-27 15:12 | NUR ---
If COVID negative do not remove Isolation until you have a Doctor or Infection Prevention Order. Call for Order.
--- NOTE | 2019-10-27 15:36 | NUR ---
Patient awake and alert, resting in bed. She denies any needs at this time.
--- NOTE | 2019-10-27 16:10 | NUR ---
ELENA GARCIA admitted to room CU2-2, with an admitting diagnosis of CHF, ELEVATED TROPONIN, on 10/27/19 from ER via , accompanied by STAFF.ELENA GRACIA introduced to surroundings, call light, bed controls, phone, TV, temperature control, lights, meal times, smoking policy, visitor policy, side rail policy, bathrooms and showers. Patient Rights given to patient in the handbook. ELENA GARCIA verbalizes understanding that [facility] is not responsible for the loss or damage to any personal effects or valuables that are kept in the patients posession during their hospitalization. The following Patient Care Plans were discussed with the PT: Discharge Planning, IMPAIRED GAS EXCHANGE,FLUID VOLUME DEFICIT, and INEFFECTIVE BREATHING PATTERN. ELENA GARCIA verbalizes understanding of Interdisciplinary Patient Education. Patient and family were informed about the Rapid Response Team and its purpose.
[2019-10-27] MEDS ORDERED: CATHETER FLUSH 10 ML SYR IV PRN (16:15)
[2019-10-27] MEDS: CLOPIDOGREL 75 MG (PLAVIX) TABLET PO SCH (16:35)
[2019-10-27] MEDS: PANTOPRAZOLE 40 MG (PROTONIX) TAB PO SCH (16:35)
--- NOTE | 2019-10-27 16:59 | NUR ---
Spoke to Dr Herron will continue with isolation through the night despite any results of testing and reevaluate tomorrow. Wait for order to remove. DDimer and COVID IgG added to lab orders.
--- NOTE | 2019-10-27 17:00 | NUR ---
PT WENT FROM BEING VERY TALKATIVE AND A&O TO DIFFICULT TO AROUSE. DR CONNOLLY NOTIFIED, NEW ORDERS RECEIVED FOR ABG AND TO HAVE TELEICU CAMERA IN AND ASSESS PT. TELEICU WAS ASSESSING PT, PT WOKE UP AND RETURNED TO NORMAL MENTAL STATUS. FSBS IN 200'S, VSS, ALL EXTREMITY STRENGTHS EQUAL. NURSING STAFF ATTEMPTING TO OBTAIN ADDITIONAL IV ACCESS AND OBTAIN ALL ORDERED LABS.
[2019-10-27 17:31] LABS: ABG BASE EXCESS 3.3 MMOL/L (-2.5-2.5); ABG OXYGEN SATURATION 91 % (94-100); ABG PCO2 44 MMHG (35-45); ABG PH 7.42 (7.37-7.43); ABG PO2 62 MMHG (79-93); ABG TCO2 28.9 MMOL/L (21.0-31.0)
[2019-10-27] MEDS: meTOprolol 5 MG/5 ML (LOPRESSOR) VIAL IV SCH ×2 (17:36→23:07)
[2019-10-27 17:37] LABS: ALLENS TEST POSITIVE; INSPIRED O2 3 L; PATIENT TEMP 37; VENTILATOR NO
--- NOTE | 2019-10-27 18:02 | NUR ---
DR BASHIR NOTIFIED OF CONSULT.
[2019-10-27] MEDS: inSUlin ASPART (NovoLOG) 1 UNIT/0.01 ML (CHARGE PER UNIT) SC SCH (19:58)
[2019-10-27] MEDS: CATHETER FLUSH 10 ML SYR IV SCH (21:30)
[2019-10-27] MEDS: ENOXAPARIN 100 MG/1 ML (LOVENOX) SYR SC SCH (23:07)
[2019-10-27] MEDS: FUROSEMIDE 40 MG/4 ML INJ (LASIX) IVP SCH (23:11)
[2019-10-28] VITALS (15 sets, daily range): BP systolic 74–161; BP diastolic 53–120
[2019-10-28 04:03] LABS: BASOPHILS % (AUTO) 0 % (0-10); EOSINOPHILS # (AUTO) 0.1 10^3/uL (0.0-0.3); EOSINOPHILS % (AUTO) 1 % (0-10); HEMATOCRIT 31 % (35-52); HEMOGLOBIN 9.6 G/DL (11.5-16.0); LYMPHOCYTES # (AUTO) 2.2 X 10^3 (1.0-4.0); LYMPHOCYTES % (AUTO) 22 % (12-44); MEAN CORPUSCULAR HEMOGLOBIN 28 PG (25-34); MEAN CORPUSCULAR HGB CONC 31 G/DL (32-36); MEAN CORPUSCULAR VOLUME 89 FL (80-99); MEAN PLATELET VOLUME 9.3 FL (7.4-10.4); MONOCYTES # (AUTO) 0.6 X 10^3 (0.0-1.0); MONOCYTES % (AUTO) 6 % (0-12); NEUTROPHILS # (AUTO) 7.2 X 10^3 (1.8-7.8); NEUTROPHILS % (AUTO) 71 % (42-75); PLATELET COUNT 330 10^3/uL (130-400); RED CELL DISTRIBUTION WIDTH 15.3 % (10.0-14.5); WHITE BLOOD COUNT 10.2 10^3/uL (4.3-11.0)
[2019-10-28 04:20] LABS: ALBUMIN 3.5 GM/DL (3.2-4.5); BILIRUBIN,TOTAL 1.3 MG/DL (0.1-1.0); CREATININE SERUM 1.97 MG/DL (0.60-1.30); MAGNESIUM 1.2 MG/DL (1.6-2.4); PHOSPHORUS 1.8 MG/DL (2.3-4.7); POTASSIUM 3.6 MMOL/L (3.6-5.0); TOTAL PROTEIN 7.2 GM/DL (6.4-8.2)
--- NOTE | 2019-10-28 05:24 | Pulmonary Consultation ---
History of Present Illness History of Present Illness Date Seen by Provider: Oct 28, 2019 Time Seen by Provider: 05:18 Date of Admission Allergies and Home Medications Allergies Coded Allergies: aspirin (Verified Allergy, Unknown, 05/09/15) codeine (Verified Allergy, Unknown, 05/09/15) Home Medications Ketorolac Tromethamine 10 Mg Tablet, 10 MG PO Q6H Prescribed by: SUSY CANNON on 05/09/152030 Nitrofurantoin Monohyd/M-Cryst 100 Mg Capsule, 100 MG PO BID Prescribed by: SUSY CANNON on 05/09/152030 Past Vpunbrq-Igjxju-Rzljcv Hx Past Med/Social Hx: Reviewed Nursing Past Med/Soc Hx Patient Social History Alcohol Use: Denies Use Recreational Drug Use: No Smoking Status: Former Smoker Recent Foreign Travel: No Contact w/Someone Who Travel: No Recent Infectious Disease Expo: No Physical Abuse: No Sexual Abuse: No Mistreated: No Fear: No Immunizations Up To Date Date of Influenza Vaccine: Feb 22, 2015 Seasonal Allergies Seasonal Allergies: No Past Medical History Surgeries: Yes ( X 3; EGD/COLONOSCOPY; RIGHT CARPAL TUNNEL) Appendectomy, Section, Gallbladder, Orthopedic, Tubal Ligation Respiratory: Yes Asthma Cardiac: Yes Hypertension Neurological: Yes (NEUROPATHY IN LEGS AND HANDS) Neuropathy Reproductive Disorders: Yes (UTERINE FIBROID) 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 oz. 102.526711ch; 40.00 BMI Method: Exam Exam Vital Signs Date Time Temp Pulse Resp B/P (MAP) Pulse Ox O2 Delivery O2 Flow Rate FiO2 10/28/19 04:06 Nasal Cannula 4.00 10/28/19 04:00 99 34 118/83 (95) 93 Nasal Cannula 4.00 10/28/19 03:44 36.3 10/28/19 03:00 138/92 (107) 94 Nasal Cannula 4.00 10/28/19 02:00 150/99 (116) Nasal Cannula 4.00 6/5/20 01:00 101 22 116/93 (101) Nasal Cannula 4.00 10/28/19 01:00 104 10/28/19 00:00 Nasal Cannula 4.00 10/28/19 00:00 96 26 131/91 (104) 94 Nasal Cannula 4.00 10/27/19 23:04 35.0 109 21 112/73 (86) 95 Nasal Cannula 4.00 10/27/19 22:00 101 24 118/90 (99) 94 Nasal Cannula 4.00 10/27/19 21:14 Nasal Cannula 4.00 10/27/19 21:00 105 22 115/84 (94) 94 Nasal Cannula 3.00 10/27/19 20:00 108 16 137/43 (74) 95 Nasal Cannula 3.00 10/27/19 20:00 Nasal Cannula 3.00 10/27/19 19:53 37.1 108 22 90/50 (63) 98 Nasal Cannula 3.00 10/27/19 19:00 105 25 99/79 (86) 95 Nasal Cannula 3.00 10/27/19 19:00 107 10/27/19 18:00 93 9 134/95 (108) 97 Nasal Cannula 3.00 10/27/19 17:00 112 23 165/103 (123) 99 Nasal Cannula 3.00 10/27/19 16:35 107 10/27/19 16:30 107 34 113/82 (92) 98 Nasal Cannula 3.00 10/27/19 16:19 35.6 10/27/19 16:15 111 137/90 (106) Nasal Cannula 3.00 10/27/19 16:10 Nasal Cannula 3.00 10/27/19 15:59 37.2 110 16 133/88 96 Nasal Cannula 3.00 10/27/19 15:36 37.2 111 18 123/97 (106) 95 Nasal Cannula 3.00 10/27/19 10:30 38.2 120 20 144/92 (109) 78 Room Air 10/27/19 10:30 Nasal Cannula 2.00 I & O 10/28/19 07:00 Intake Total 1475 ml Output Total 1500 ml Balance -25 ml Height & Weight Height: 5'6" Weight: 225lbs. oz. 102.218123na; 40.00 BMI Method: General Appearance: No Apparent Distress, WD/WN Neck: Non Tender, Supple Respiratory: Chest Non Tender, Lungs Clear, Normal Breath Sounds Cardiovascular: No Edema, Tachycardia Capillary Refill: Less Than 3 Seconds Extremity: Normal Range of Motion Neurologic/Psychiatric: Alert, Oriented x3, No Motor/Sensory Deficits, Normal Mood/Affect Skin: Warm/Dry Results Lab Laboratory Tests 10/27/19 11:10 10/28/19 03:32 Assessment/Plan Assessment/Plan Acute respiratory distress -Oxygen -COVID is pending -Brandon cultures pending -Check RVP, urine strep and legionella ag -Check UA with culture Pneumonia -Start Rocephin and azithromycin Hypomag, hypophos -replace Anemia -Monitor Renal failure -Monitor MICHAEL BASHIR DO Oct 28, 2019 05:24
[2019-10-28] MEDS ORDERED: POTASSIUM CL 10MEQ/50ML IVPB 50 ML IV SCH (06:00)
[2019-10-28] MEDS ORDERED: MAGNESIUM 1 GM/100 ML IVPB 100 ML IV SCH (06:00)
[2019-10-28] MEDS ORDERED: KCL 20 MEQ TAB (K-DUR) PO SCH (06:00)
[2019-10-28] MEDS: MAGNESIUM 1 GM/100 ML IVPB 100 ML IV SCH ×3 (06:55→11:07)
[2019-10-28] MEDS: meTOprolol 5 MG/5 ML (LOPRESSOR) VIAL IV SCH ×3 (06:55→17:04)
[2019-10-28] MEDS: cefTRIAXone FOR IV USE 1,000 MG in WATER (STERILE) FOR INJECTION 10 ML IV SCH (06:55)
[2019-10-28] MEDS: CATHETER FLUSH 10 ML SYR IV SCH ×3 (06:55→20:38)
[2019-10-28] MEDS: FUROSEMIDE 40 MG/4 ML INJ (LASIX) IVP SCH ×2 (06:56→16:59)
[2019-10-28] MEDS: inSUlin ASPART (NovoLOG) 1 UNIT/0.01 ML (CHARGE PER UNIT) SC SCH ×4 (06:56→20:36)
[2019-10-28] MEDS ORDERED: AZITHROMYCIN INJECTION 500 MG in NS (IVPB) 250 ML IV NR (07:00)
[2019-10-28] MEDS ORDERED: POTASSIUM PHOSPHATE INJ 30 MM in NS (IVPB) 250 ML IV NR (07:00)
[2019-10-28] MEDS: CLOPIDOGREL 75 MG (PLAVIX) TABLET PO SCH (08:26)
[2019-10-28] MEDS: PANTOPRAZOLE 40 MG (PROTONIX) TAB PO SCH (08:26)
[2019-10-28 08:55] LABS: BILIRUBIN,URINE NEGATIVE (NEGATIVE); CLARITY,URINE CLEAR; COLOR,URINE YELLOW; GLUCOSE, URINE (UA) NEGATIVE (NEGATIVE); KETONES,URINE NEGATIVE (NEGATIVE); LEUKOCYTE ESTERASE ,URINE NEGATIVE (NEGATIVE); NITRITE,URINE NEGATIVE (NEGATIVE); PROTEIN,URINE 1+ (NEGATIVE)
[2019-10-28 09:02] LABS: BACTERIA,URINE NEGATIVE /HPF; RBC,URINE RARE /HPF; SQUAMOUS EPITHELIAL CELL,UR RARE /HPF
[2019-10-28] MEDS ORDERED: hydrOXYzine (ATARAX) 10 MG TAB PO PRN (10:15)
[2019-10-28] MEDS ORDERED: LEVOTHYROXINE 112 MCG (LEVOTHROID) TAB PO NR (10:15)
--- NOTE | 2019-10-28 10:28 | History & Physical-Hospitalist ---
History of Present Illness HPI/Chief Complaint Pt is a 59yoCF with a PMH of HTN,HLD, IDDMII who presented to the ER due to SOB and dizziness though when asked why she came to the hospital she states she was told she had a stroke. I called and confirmed with the ER doctor who saw her and this was not his diagnosis or even in the differential. She did not have and do es not currently have any focal deficits. When asked why she thought she had a stroke she was unsure. When reminded that she was complaining of shortness of breath and was found to be hypoxic she remembered that. On arrival to the ER her oxygen saturation was in the70s on room air. CXR showed some pulmonary edema. She had a fever as well and COVID19 testing was done. Source: patient Date Seen 10/28/19 Time Seen by a Provider: 10:23 Attending Physician Huey Herron MD PCP No,Local Physician Referring Physician Date of Admission Oct 27, 2019 at 14:47 Home Medications & Allergies Home Medications Reviewed patient Home Medication Reconciliation performed by pharmacy medication reconciliations coordinate measuring machine technician and/or nursing. Patients Allergies have been reviewed. Allergies Allergies Coded Allergies aspirin (Verified Allergy, Unknown, 05/09/15) codeine (Verified Allergy, Unknown, 05/09/15) Past Mpetcdv-Emzhlc-Zyanlr Hx Past Med/Social Hx: Reviewed Nursing Past Med/Soc Hx Patient Social History Alcohol Use: Denies Use Recreational Drug Use: No Smoking Status: Former Smoker Recent Foreign Travel: No Contact w/other who traveled: No Recent Infectious Disease Expo: No Immunizations Up To Date Date of Influenza Vaccine: Feb 22, 2015 Seasonal Allergies Seasonal Allergies: No Past Medical History Surgeries: Appendectomy, Section, Gallbladder, Orthopedic, Tubal Ligat ion Cardiac: Hypertension Neurological: Neuropathy Reproductive: Yes (UTERINE FIBROID) Menopausal Gastrointestinal: Gastroesophageal Reflux Musculoskeletal: Degenerate Disk Disease, Chronic Back Pain Endocrine: Diabetes, Non-Insulin dep Psychosocial: Anxiety History of Blood Disorders: No Family History Diabetes mellitus 19 MOTHER FH: skin cancer 19 MOTHER Review of Systems Constitutional: chills, dizziness, fever Respiratory: cough; No phlegm; short of breath Cardiovascular: No chest pain Gastrointestinal: No abdominal pain, No nausea, No vomiting Genitourinary: no symptoms reported Musculoskeletal: no symptoms reported Skin: no symptoms reported Psychiatric/Neurological: No Symptoms Reported Physical Exam Physical Exam Vital Signs Vital Signs - First Documented 10/27/19 10:30 Temp 38.2 Pulse 120 Resp 20 B/P (MAP) 144/92 (109) Pulse Ox 78 O2 Delivery Nasal Cannula O2 Flow Rate 2.00 Capillary Refill : Less Than 3 Seconds Height, Weight, BMI Height: 5'6" Weight: 225lbs. oz. 102.343357sb; 40.00 BMI Method: General Appearance: No Apparent Distress, Anxious, Chronically ill HEENT: PERRL/EOMI, Moist Mucous Membranes; No Scleral Icterus (L), No Scleral Icterus (R) Neck: Normal Inspection, Supple; No Thyromegaly Respiratory: No Crackles, No Wheezing; Other (on 4lpm NC) Cardiovascular: Regular Rate, Rhythm, No Murmur Gastrointestinal: Normal Bowel Sounds, Non Tender, Soft Extremity: Normal Capillary Refill, No Calf Tenderness, No Pedal Edema Neurologic/Psychiatric: Alert, Oriented x3, Other (tangential thought process, rambles at times) Skin: Normal Color, Warm/Dry Results Results/Procedures Labs Laboratory Tests 10/27/19 11:10 10/28/19 03:32 Patient resulted labs reviewed. Imaging: Reviewed Imaging Report Assessment/Plan Admission Diagnosis Acute Hypoxic Respiratory Failure Admission Status: Inpatient Order (span 2 midnights) Reason for Inpatient Admission: oxygen requirement, IV diuresis Assessment and Plan Acute Hypoxic Respiratory Failure Pulmonary Edema Likely due to heart failure CXr shows congestion and elevated BNP Echo ordered Cardiology consulted Given fever COVID19 testing done, PCR negative IGG pending Diuresis started Procalcitonin slightly elevated, continue abx for questionable pna D-dimer elevated and unable to get CTA due to creatinine, will continue Lovenox for now Elevated troponin HTN HLD Cardiology consulted, appreciate recs Continue home meds BP well controlled acute on chronic kidney disease Up today slightly, trend IDDMII SSI levemir added Anxiety Resume home meds Hypothyroidism Continue home synthroid Hypomagnesemia Replace Clinical Quality Measures DVT/VTE Risk/Contraindication: Risk Factor Score Per Nursin RFS Level Per Nursing on Admit: 4+=Very High HUEY HERRON MD Oct 28, 2019 10:28
[2019-10-28] MEDS: ENOXAPARIN 100 MG/1 ML (LOVENOX) SYR SC SCH (11:08)
[2019-10-28] MEDS ORDERED: INSU100V SC (11:54)
[2019-10-28] MEDS ORDERED: INSU100I10 SC (11:54)
[2019-10-28] MEDS ORDERED: MTP25TSR PO (11:54)
[2019-10-28] MEDS ORDERED: AMLO5TAB9 PO (11:54)
[2019-10-28] MEDS ORDERED: METH500T7 PO (11:54)
[2019-10-28] MEDS ORDERED: LEVO112T55 PO (11:54)
[2019-10-28] MEDS ORDERED: INSU100I10 SQ (11:54)
[2019-10-28] MEDS ORDERED: SAXA2.5T PO (11:54)
[2019-10-28] MEDS ORDERED: HYDR-4342 PO (11:54)
[2019-10-28] MEDS ORDERED: MELA5TAB14 PO (11:55)
[2019-10-28] MEDS ORDERED: ASPI-983 PO (11:55)
--- NOTE | 2019-10-28 12:00 | NUR ---
SPOKE WITH THE PT (I CALLED HER ROOM PHONE) AND WENT THRU THE EXT MED HISTORY TO COMPLETE THE MED REC PT WAS ABLE TO NAME SOME OF HER MEDICATIONS BUT I DID HAVE TO FILL IN SOME FROM THE EXT MED HISTORY AND THEN SHE WAS ABLE TO TELL ME HOW/WHEN SHE TAKES EACH-HER INFORMATION MATCHED THE EXT MED HISTORY SHE WASNT SURE HOW MANY UNITS SHE USED ON HER INSULIN (HUMALOG AND LANTUS) BUT DID KNOW SHE USED WHATEVER THE PRESCRIPTION SAID, THEREFORE I ENTERED THE DIRECTIONS ON THE MED REC ACCORDING TO THE EXT MED HISTORY OTC MEDS: MELATONIN ASPIRIN 81MG
--- NOTE | 2019-10-28 13:07 | Consultation-Cardiology ---
HPI-Cardiology Cardiology Consultation Date of Consultation 10/28/19 Date of Admission Time Seen by Provider: 10:23 Indication: Near syncope HPI 59 years old lady with history of hypertension, hyperlipidemia and diabetes mellitus, admitted to the emergency room for dizziness, lightheadedness, unsteady gait and shortness of breath. Denied any chest pain but reporting occasional chest discomfort. Noted to have elevation troponin level and BNP. She had workup including COVID testing which came back as negative, currently sitting in bed comfortable, denied any chest pain. No palpitation. No syncope or near syncopal episodes, discussed the management plan with her and recommended cardiac catheterization. Patient requested to think about it and talk to her family Home Medications & Allergies Allergies: Coded Allergies: aspirin (Verified Allergy, Unknown, 05/09/15) codeine (Verified Allergy, Unknown, 05/09/15) Home Medication List Reviewed: Yes LNY-Drpcua-Zmrzyb Hx Patient Social History Marital Status: Employed/Student: employed Alcohol Use: Denies Use Recreational Drug Use: No Smoking Status: Former Smoker Recent Foreign Travel: No Recent Infectious Disease Expo: No Immunizations Up To Date Date of Influenza Vaccine: Feb 22, 2015 Past Medical History Discussed below Family Medical History Family Medical Hx Noncontributory Family History: Diabetes mellitus 19 MOTHER FH: skin cancer 19 MOTHER Review of Systems-General Review of Systems Constitutional: chills, dizziness, fever Respiratory: see HPI, cough, dyspnea on exertion; No hemoptysis, No orthopnea, No phlegm; short of breath; No stridor, No wheezing, No other Cardiovascular: see HPI, chest pain; No edema, No Hx of Intervention, No palpitations, No syncope, No vascular heart diseas, No other Gastrointestinal: see HPI; No abdominal pain, No nausea, No vomiting Genitourinary: no symptoms reported, see HPI Musculoskeletal: no symptoms reported, see HPI Skin: no symptoms reported, see HPI Psychiatric/Neurological: No Symptoms Reported, See HPI Reviewed Test Results Reviewed Test Results Lab Laboratory Tests Test 10/27/19 13:35 10/27/19 13:41 10/27/19 17:23 10/27/19 17:26 Range/Units Blood Gas Puncture Site LEFT WRITST LEFT RADIAL Blood Gas Patient Temperature 37.3 37 Arterial Blood pH 7.40 7.42 7.37-7.43 Arterial Blood Partial Pressure CO2 45 44 35-45 MMHG Arterial Blood Partial Pressure O2 63 L 62 L 79-93 MMHG Arterial Blood HCO3 27 28 H 23-27 MMOL/L Arterial Blood Total CO2 28.2 28.9 21.0-31.0 MMOL/L Arterial Blood Oxygen Saturation 86 L 91 L 94-100 % Arterial Blood Base Excess 2.5 3.3 H -2.5-2.5 MMOL/L Rene Test POSITIVE POSITIVE Blood Gas Ventilator Setting NO NO Blood Gas Inspired Oxygen 2 3 L Urine Opiates Screen POSITIVE H NEGATIVE Urine Oxycodone Screen NEGATIVE NEGATIVE Urine Methadone Screen NEGATIVE NEGATIVE Urine Propoxyphene Screen NEGATIVE NEGATIVE Urine Barbiturates Screen NEGATIVE NEGATIVE Ur Tricyclic Antidepressants Screen POSITIVE H NEGATIVE Urine Phencyclidine Screen NEGATIVE NEGATIVE Urine Amphetamines Screen NEGATIVE NEGATIVE Urine Methamphetamines Screen NEGATIVE NEGATIVE Urine Benzodiazepines Screen POSITIVE H NEGATIVE Urine Cocaine Screen NEGATIVE NEGATIVE Urine Cannabinoids Screen NEGATIVE NEGATIVE Troponin I 0.787 *H <0.028 NG/ML Test 10/27/19 17:33 10/27/19 18:06 10/27/19 19:50 10/28/19 03:32 Range/Units Glucometer 278 H 320 H 70-110 MG/DL D-Dimer 3.28 H 0.00-0.49 UG/ML White Blood Count 10.2 4.3-11.0 10^3/uL Red Blood Count 3.47 L 4.35-5.85 10^6/uL Hemoglobin 9.6 L 11.5-16.0 G/DL Hematocrit 31 L 35-52 % Mean Corpuscular Volume 89 80-99 FL Mean Corpuscular Hemoglobin 28 25-34 PG Mean Corpuscular Hemoglobin Concent 31 L 32-36 G/DL Red Cell Distribution Width 15.3 H 10.0-14.5 % Platelet Count 330 130-400 10^3/uL Mean Platelet Volume 9.3 7.4-10.4 FL Neutrophils (%) (Auto) 71 42-75 % Lymphocytes (%) (Auto) 22 12-44 % Monocytes (%) (Auto) 6 0-12 % Eosinophils (%) (Auto) 1 0-10 % Basophils (%) (Auto) 0 0-10 % Neutrophils # (Auto) 7.2 1.8-7.8 X 10^3 Lymphocytes # (Auto) 2.2 1.0-4.0 X 10^3 Monocytes # (Auto) 0.6 0.0-1.0 X 10^3 Eosinophils # (Auto) 0.1 0.0-0.3 10^3/uL Basophils # (Auto) 0.0 0.0-0.1 10^3/uL Sodium Level 139 135-145 MMOL/L Potassium Level 3.6 3.6-5.0 MMOL/L Chloride Level 100 98-107 MMOL/L Carbon Dioxide Level 27 21-32 MMOL/L Anion Gap 12 5-14 MMOL/L Blood Urea Nitrogen 25 H 7-18 MG/DL Creatinine 1.97 H 0.60-1.30 MG/DL Estimat Glomerular Filtration Rate 26 BUN/Creatinine Ratio 13 Glucose Level 176 H 70-105 MG/DL Calcium Level 10.0 8.5-10.1 MG/DL Corrected Calcium 10.4 H 8.5-10.1 MG/DL Phosphorus Level 1.8 L 2.3-4.7 MG/DL Magnesium Level 1.2 L 1.6-2.4 MG/DL Total Bilirubin 1.3 H 0.1-1.0 MG/DL Aspartate Amino Transf (AST/SGOT) 35 H 5-34 U/L Alanine Aminotransferase (ALT/SGPT) 52 0-55 U/L Alkaline Phosphatase 69 40-136 U/L Troponin I 0.465 *H <0.028 NG/ML Total Protein 7.2 6.4-8.2 GM/DL Albumin 3.5 3.2-4.5 GM/DL Thyroid Stimulating Hormone (TSH) 0.84 0.35-4.94 UIU/ML Test 10/28/19 08:30 10/28/19 11:17 Range/Units Urine Color YELLOW Urine Clarity CLEAR Urine pH 7.0 5-9 Urine Specific [place] 1.015 L 1.016-1.022 Urine Protein 1+ H NEGATIVE Urine Glucose (UA) NEGATIVE NEGATIVE Urine Ketones NEGATIVE NEGATIVE Urine Nitrite NEGATIVE NEGATIVE Urine Bilirubin NEGATIVE NEGATIVE Urine Urobilinogen 0.2 < = 1.0 MG/DL Urine Leukocyte Esterase NEGATIVE NEGATIVE Urine RBC (Auto) TRACE-I NEGATIVE Urine RBC RARE /HPF Urine WBC NONE /HPF Urine Squamous Epithelial Cells RARE /HPF Urine Crystals NONE /LPF Urine Bacteria NEGATIVE /HPF Urine Casts NONE /LPF Urine Mucus NEGATIVE /LPF Urine Culture Indicated NO Glucometer 381 H 70-110 MG/DL ECG Impression ECG Initial ECG Rhythm: Normal Sinus Physical Exam Physical Exam Vital Signs Vital Signs - First Documented 10/27/19 10:30 Temp 38.2 Pulse 120 Resp 20 B/P (MAP) 144/92 (109) Pulse Ox 78 O2 Delivery Nasal Cannula O2 Flow Rate 2.00 Capillary Refill : Less Than 3 Seconds Height, Weight, BMI Height: 5'6" Weight: 225lbs. oz. 102.005487nz; 40.00 BMI Method: General Appearance: No Apparent Distress, Anxious, Chronically ill Eyes: Bilateral Eye Normal Inspection, Bilateral Eye PERRL, Bilateral Eye EOMI HEENT: PERRL/EOMI, Moist Mucous Membranes; No Scleral Icterus (L), No Scleral Icterus (R) Neck: Normal Inspection, Supple; No Thyromegaly Respiratory: Chest Non Tender, Lungs Clear, Normal Breath Sounds; No Crackles, No Wheezing; Other (on 4lpm NC) Cardiovascular: Regular Rate, Rhythm, No Edema, No Murmur Gastrointestinal: Normal Bowel Sounds, Non Tender, Soft Back: Normal Inspection, No CVA Tenderness, No Vertebral Tenderness Extremity: Normal Capillary Refill, No Calf Tenderness, No Pedal Edema Neurologic/Psychiatric: Alert, Oriented x3, Other (tangential thought process, rambles at times) Skin: Normal Color, Warm/Dry Lymphatic: No Adenopathy A/P-Cardiology Admission Diagnosis Congestive heart failure, acute left ventricular systolic dysfunction, ischemic cardiomyopathy Coronary artery disease Hypertension Hyperlipidemia Assessment/Plan Dizziness and lightheadedness, reporting improvement Congestive heart failure, acute left ventricular systolic dysfunction, ejection fraction 40-45 percent, probably ischemic in nature. Recommended cardiac catheterization, patient requested to wait and think about it. Start Lopressor and losartan and monitor tolerance and response Non-ST elevation myocardial infarction, elevation in troponin level. Discussed the management plan recommended cardiac catheterization, patient has to wait and think about it. Allergy to aspirin, started on Plavix Shortness of breath. Reporting improvement, breathing better at this time, change Lasix to oral and monitor tolerance and response I will discontinue Lovenox and use DVT prophylaxis dose at this time COVID negative tested twice Clinical Quality Measures DVT/VTE Risk/Contraindication: Risk Factor Score Per Nursin RFS Level Per Nursing on Admit: 4+=Very High CYNTHIA MALDONADO MD Oct 28, 2019 13:07
[2019-10-28] MEDS ORDERED: ENOXAPARIN 100 MG/1 ML (LOVENOX) SYR SC SCH ×2 (13:30→23:00)
--- NOTE | 2019-10-28 16:30 | NUR ---
PT TRANSFERRED [facility]IA W/ STAFF AND PERSONAL BELONGINGS. REPORT GIVEN TO TONIO KING, NO QUESTIONS/CONCERNS VOICED.
--- NOTE | 2019-10-28 17:00 | NUR ---
TAKING OVER CARE OF PT AT THIS TIME. RECEIVED REPORT FROM MANUFACTURING QUALITY ENGINEER.
--- NOTE | 2019-10-29 00:15 | NUR ---
PT COMPLAINED OF HEADACHE. NO PRN PAIN MEDICATION NOTED ON EMAR. DR. CONNOLLY CONTACTED AND ORDER RECEIVED FROM TYLENOL 500MG PO Q4 HOURS PRN.
[2019-10-29 00:27] VITALS: BP 128/75
[2019-10-29] MEDS: meTOprolol 5 MG/5 ML (LOPRESSOR) VIAL IV SCH ×2 (00:31→06:35)
[2019-10-29] MEDS: ACETAMINOPHEN 500 MG TAB (TYLENOL) PO PRN (00:32)
[2019-10-29 03:24] VITALS: BP 109/63
[2019-10-29] MEDS ORDERED: cefTRIAXone 1,000 MG IV (ROCEPHIN) VIAL ONE ×2 (05:59→06:05)
[2019-10-29] MEDS ORDERED: WATER (STERILE) FOR INJECTION 10 ML ONE (06:05)
[2019-10-29] MEDS: LEVOTHYROXINE 112 MCG (LEVOTHROID) TAB PO SCH (06:32)
[2019-10-29] MEDS: FUROSEMIDE 40 MG/4 ML INJ (LASIX) IVP SCH (06:35)
[2019-10-29] MEDS: cefTRIAXone FOR IV USE 1,000 MG in WATER (STERILE) FOR INJECTION 10 ML IV SCH (06:36)
[2019-10-29] MEDS: CATHETER FLUSH 10 ML SYR IV SCH ×3 (06:37→21:00)
[2019-10-29] MEDS: inSUlin ASPART (NovoLOG) 1 UNIT/0.01 ML (CHARGE PER UNIT) SC SCH ×4 (06:37→20:59)
[2019-10-29 06:58] LABS: BASOPHILS % (AUTO) 0 % (0-10); EOSINOPHILS # (AUTO) 0.3 10^3/uL (0.0-0.3); EOSINOPHILS % (AUTO) 4 % (0-10); HEMATOCRIT 30 % (35-52); HEMOGLOBIN 9.5 G/DL (11.5-16.0); LYMPHOCYTES # (AUTO) 1.8 X 10^3 (1.0-4.0); LYMPHOCYTES % (AUTO) 23 % (12-44); MEAN CORPUSCULAR HEMOGLOBIN 28 PG (25-34); MEAN CORPUSCULAR HGB CONC 32 G/DL (32-36); MEAN CORPUSCULAR VOLUME 88 FL (80-99); MEAN PLATELET VOLUME 9.3 FL (7.4-10.4); MONOCYTES # (AUTO) 0.6 X 10^3 (0.0-1.0); MONOCYTES % (AUTO) 8 % (0-12); NEUTROPHILS % (AUTO) 65 % (42-75); PLATELET COUNT 320 10^3/uL (130-400); WHITE BLOOD COUNT 7.7 10^3/uL (4.3-11.0)
[2019-10-29 07:12] LABS: POTASSIUM 3.2 MMOL/L (3.6-5.0)
[2019-10-29 07:14] LABS: CALCIUM 9.7 MG/DL (8.5-10.1)
[2019-10-29 07:18] LABS: CREATININE SERUM 1.82 MG/DL (0.60-1.30); PHOSPHORUS 3.4 MG/DL (2.3-4.7)
[2019-10-29 07:20] LABS: MAGNESIUM 1.9 MG/DL (1.6-2.4)
--- NOTE | 2019-10-29 07:20 | NUR ---
PT NEGATIVE FOR COVID [address] CONNOLLY NOTIFIED AND GAVE ORDER TO HAVE PT MOVED OUT OF ISOLATION. PT NOW IN ROOM 424.
[2019-10-29] MEDS: PANTOPRAZOLE 40 MG (PROTONIX) TAB PO SCH (07:59)
[2019-10-29] MEDS: CLOPIDOGREL 75 MG (PLAVIX) TABLET PO SCH (07:59)
[2019-10-29 08:00] VITALS: BP 123/76
[2019-10-29] MEDS: AZITHROMYCIN INJECTION 250 MG in NS (IVPB) 250 ML IV SCH (08:00)
[2019-10-29 11:00] VITALS: BP 150/66
[2019-10-29] MEDS ORDERED: LOSARTAN 25 MG (COZAAR) TAB PO NR (11:45)
[2019-10-29] MEDS: ENOXAPARIN 40 MG/0.4 ML (LOVENOX) SYR SQ SCH (12:30)
--- NOTE | 2019-10-29 13:02 | NUR ---
PT AGREED TO HEART CATH. PER PT SHE SPOKE TO SON ON PHONE AND DECIDED TO HAVE PROCEDURE DONE WHILE HERE IN THE HOSPITAL. DR MALDONADO NOTIFIED, ORDERED PT TO BE NPO AT MIDNIGHT AND SCHEDULE CATH FOR 10 AM TOMORROW, 10/30/19. ORDERS IN COMPUTER. CONSENT SIGNED IN CHART, ADD ON GIVEN TO MARKETING ANALYTICS LEAD.
--- NOTE | 2019-10-29 13:08 | Progress Note - Hospitalist ---
Subjective HPI/CC On Admission Date Seen by Provider: Oct 29, 2019 Time Seen by Provider: 13:03 Pt is a 59yoCF with a PMH of HTN,HLD, IDDMII who presented to the ER due to SOB and dizziness though when asked why she came to the hospital she states she was told she had a stroke. I called and confirmed with the ER doctor who saw her and this was not his diagnosis or even in the differential. She did not have and does not currently have any focal deficits. When asked why she thought she had a stroke she was unsure. When reminded that she was complaining of shortness of breath and was found to be hypoxic she remembered that. On arrival to the ER her oxygen saturation was in the70s on room air. CXR showed some pulmonary edema. Sh melissa had a fever as well and COVID19 testing was done. Subjective/Events-last exam Pt reports doing well. No complaints. Has spoken to her son and would like to proceed with cardiac cath. Focused Exam Lactate Level 10/27/19 11:10: Lactic Acid Level 1.64 Objective Exam Vital Signs Vital Signs Date Time Temp Pulse Resp B/P (MAP) Pulse Ox O2 Delivery O2 Flow Rate FiO2 10/29/19 11:00 35.7 93 16 150/66 (94) 99 Nasal Cannula 2.00 Capillary Refill : Less Than 3 Seconds General Appearance: No Apparent Distress, Chronically ill, Obese Respiratory: Lungs Clear, No Respiratory Distress Cardiovascular: Regular Rate, Rhythm, No Murmur Gastrointestinal: Normal Bowel Sounds, Non Tender, Soft Neurologic/Psychiatric: Alert, Oriented x3 Results/Procedures Lab Laboratory Tests 10/29/19 06:40 Patient resulted labs reviewed. Imaging: Reviewed Imaging Report Assessment/Plan Assessment and Plan Assess & Plan/Chief Complaint Acute Hypoxic Respiratory Failure Pulmonary Edema Acutely decompensated systolic heart failure Likely due to heart failure Echo reveals EF of 40% Cardiology consulted COVID19 PCR and IGG negative Elevated troponin HTN HLD Cardiology consulted, appreciate recs Continue home meds BP well controlled Plan for cardiac cath tomorrow acute on chronic kidney disease back down today to 1.8 Trend IDDMII SSI Continue Levemir Anxiety Continuehome meds Hypothyroidism Continue home synthroid Hypomagnesemia Replaced Clinical Quality Measures DVT/VTE Risk/Contraindication: Risk Factor Score Per Nursin RFS Level Per Nursing on Admit: 4+=Very High HUEY CONNOLLY MD Oct 29, 2019 13:08
[2019-10-29 16:24] VITALS: BP 100/72
[2019-10-29] MEDS: ALPRAZolam 0.5 MG (XANAX) TAB PO PRN (16:46)
[2019-10-29 20:30] VITALS: BP 151/91
[2019-10-29] MEDS: meTOprolol TARTRATE 25 MG (LOPRESSOR) TABLET PO SCH (20:56)
[2019-10-29] MEDS: MELATONIN 3 MG TABLET PO SCH (20:57)
[2019-10-30] VITALS (14 sets, daily range): BP systolic 99–152; BP diastolic 57–90
[2019-10-30 04:56] LABS: BASOPHILS % (AUTO) 0 % (0-10); EOSINOPHILS # (AUTO) 0.3 10^3/uL (0.0-0.3); EOSINOPHILS % (AUTO) 5 % (0-10); HEMATOCRIT 32 % (35-52); LYMPHOCYTES # (AUTO) 1.5 X 10^3 (1.0-4.0); LYMPHOCYTES % (AUTO) 23 % (12-44); MEAN CORPUSCULAR HEMOGLOBIN 27 PG (25-34); MEAN CORPUSCULAR HGB CONC 31 G/DL (32-36); MEAN CORPUSCULAR VOLUME 88 FL (80-99); MEAN PLATELET VOLUME 9.1 FL (7.4-10.4); MONOCYTES # (AUTO) 0.5 X 10^3 (0.0-1.0); MONOCYTES % (AUTO) 8 % (0-12); NEUTROPHILS # (AUTO) 4.2 X 10^3 (1.8-7.8); NEUTROPHILS % (AUTO) 64 % (42-75); PLATELET COUNT 340 10^3/uL (130-400); RED CELL DISTRIBUTION WIDTH 14.9 % (10.0-14.5); WHITE BLOOD COUNT 6.5 10^3/uL (4.3-11.0)
[2019-10-30 05:08] LABS: ALBUMIN 3.5 GM/DL (3.2-4.5); POTASSIUM 3.6 MMOL/L (3.6-5.0)
[2019-10-30 05:09] LABS: CALCIUM 9.9 MG/DL (8.5-10.1)
[2019-10-30 05:11] LABS: TOTAL PROTEIN 6.9 GM/DL (6.4-8.2)
[2019-10-30 05:12] LABS: BILIRUBIN,TOTAL 0.4 MG/DL (0.1-1.0)
[2019-10-30 05:14] LABS: CREATININE SERUM 1.67 MG/DL (0.60-1.30); PHOSPHORUS 3.9 MG/DL (2.3-4.7)
[2019-10-30 05:17] LABS: MAGNESIUM 1.8 MG/DL (1.6-2.4)
[2019-10-30] MEDS: inSUlin ASPART (NovoLOG) 1 UNIT/0.01 ML (CHARGE PER UNIT) SC SCH ×4 (05:42→20:54)
[2019-10-30] MEDS ORDERED: cefTRIAXone 1,000 MG IV (ROCEPHIN) VIAL ONE (06:04)
[2019-10-30] MEDS ORDERED: WATER (STERILE) FOR INJECTION 10 ML ONE (06:04)
[2019-10-30] MEDS: CATHETER FLUSH 10 ML SYR IV SCH ×3 (06:12→20:57)
[2019-10-30] MEDS: cefTRIAXone FOR IV USE 1,000 MG in WATER (STERILE) FOR INJECTION 10 ML IV SCH (06:13)
[2019-10-30] MEDS: LEVOTHYROXINE 112 MCG (LEVOTHROID) TAB PO SCH (06:14)
[2019-10-30] MEDS ORDERED: HEParin (CATH LAB) 2,000 ML IV ONE (08:06)
[2019-10-30] MEDS ORDERED: NS IV 1000 ML 0 ML ONE (08:06)
[2019-10-30] MEDS ORDERED: LIDOCAINE 1% INJ 20 ML 20 ML VIAL ONE (08:06)
[2019-10-30] MEDS ORDERED: MIDAZOLAM 5 MG/5 ML (VERSED) VIAL ONE (08:12)
[2019-10-30] MEDS ORDERED: fentaNYL INJECTION 100 MCG/2 ML AMP ONE (08:13)
[2019-10-30] MEDS ORDERED: NITRO DRIP 25000 MCG/D5W 250 ML IV ONE (08:13)
[2019-10-30] MEDS ORDERED: VERAPAMIL 5 MG/2 ML (CALAN) VIAL IV ONE (08:13)
[2019-10-30] MEDS ORDERED: HEParin 1000 UNIT/ML (10ML VIAL) FOR BOLUS ONE (08:13)
[2019-10-30] MEDS ORDERED: NS IV 1000 ML 1,000 ML ONE (08:13)
--- NOTE | 2019-10-30 08:28 | Cardiac Procedure Note-CS/ASA ---
Pre-Procedure Note Pre-Op Procedure Note H&P Reviewed The H&P was reviewed, patient examined and no changes noted. Date H&P Reviewed: Oct 30, 2019 Time H&P Reviewed: 08:28 Conscious Sedation Pre-Proced Time 08:28 ASA Score 3 For ASA 3 and 4: Consider anesthesia and medical clearance. Also, for patients with a history of failed moderate sedation consider anesthesia. Airway Lungs Heart ASA score ASA 1: a normal healthy patient ASA 2: a patient with a mild systemic disease (mid diabetes, controlled hypertension, obesity x ASA 3: a patient with a severe systemic disease that limits activity (angina, COPD, prior Myocardial infarction) ASA 4: a patient with an incapacitating disease that is a constant threat to life (CHF, renal failure) ASA 5: a moribund patient not expected to survive 24 hrs. (ruptured aneurysm) ASA 6: a declared brain- patient whose organs are being harvested. For emergent operations, add the letter E after the classification Mallampati Classification Grade 3 Sedation Plan Analgesia, Amnesia, Plan communicated to team members, Discussed options with patient/fam, Discussed risks with patient/fam The patient is an appropriate candidate to undergo the planned procedure, sedation, and anesthesia. The patient immediately re-assessed prior to indication. CYNTHIA MALDONADO MD Oct 30, 2019 08:28
[2019-10-30] MEDS ORDERED: NS IV 1000 ML 1,000 ML IV SCH ×2 (08:45→09:04)
[2019-10-30] MEDS ORDERED: FUROSEMIDE 40 MG (LASIX) TAB PO SCH (09:00)
--- NOTE | 2019-10-30 09:08 | Cardiac Cath Report ---
Cardiac Cath Report Physician (s)/Territory Outside Sales Manager (s) Physician CYNTHIA MALDONADO MD Pre-Procedure Diagnosis Pre-Procedure Diagnosis: Elevated troponin Post-Procedure Note Procedure Start Date: Oct 30, 2019 Name of Procedure: left heart catheterization Findings/Procedure Note PROCEDURE NOTE: 59-year-old lady admitted with respiratory failure, shortness of breath, elevated troponin level. Scheduled for cardiac catheterization possible PTCA. After explaining the procedure to the patient, all pros and cons were explained, all questions were answered. The patient signed the consent and then she was placed on the cardiac catheterization laboratory. Groin was prepped SL fashion local anesthesia was used. Sheath placed in the right radial artery, [place] catheter was used to evaluate the coronaries, prolapsed to the left ventricular cavity, pressure was measured and left ventriculogram was done At the end of the procedure the sheath was removed. Vascular band was used FINDINGS: Hemodynamics LV 122/9, end-diastolic pressure of 9 Aorta 119/68 mean of 91 ANATOMY: Left Main is free of obstructive disease Left Anterior Descending has mild to moderate disease at the midportion nonobstructive disease Left Circumflex is nondominant small artery with no obstructive disease Right Coronory Artery is dominant artery tortuous with mild disease nonobstructive disease LV Gram was not done, pressure was measured CONCLUSION: 1. [id number] disease in the mid LAD nonobstructive disease otherwise no significant obstructive coronary artery disease 2. Normal left ventricular end-diastolic pressure DISCUSSION AND RECOMMENDATION: Medical therapy is recommended no intervention is needed Anesthesia Type: Conscious Sedation Estimated blood loss (mL): 5 ml Contrast Amount: 33 ml Total Radiation Dose: 213 mGy Post-Procedure Diagnosis Post-operative diagnosis: Elevated troponin level Coronary artery disease Hypertension Congestive heart failure CYNTHIA MALDONADO MD Oct 30, 2019 09:08
--- NOTE | 2019-10-30 09:10 | Cardiology Progress Note ---
Subjective Date Seen by Provider: Oct 30, 2019 Time Seen by Provider: 09:09 Subjective/Events-last exam Patient was seen at bedside, feeling well. No new complaint Review of Systems General: No Chills, No Night Sweats, No Fatigue, No Malaise, No Appetite, No Other HEENT: No Head Aches, No Visual Changes, No Eye Pain, No Ear Pain, No Dysphasia, No Sinus Congestion, No Post Nasal Drip, No Sore Throat, No Other Pulmonary: No Dyspnea, No Cough, No Pleuritic Chest Pain, No Other Cardiovascular: No: Chest Pain, Palpitations, Orthopnea, Paroxysmal Noc. Dyspnea, Edema, Lt Headedness, Other Focused Exam Lactate Level 10/27/19 11:10: Lactic Acid Level 1.64 Objective-Cardiology Exam Last Set of Vital Signs Vital Signs 10/30/19 08:00 Temp 36.4 Pulse 86 Resp 18 B/P (MAP) 122/83 (96) Pulse Ox 96 O2 Delivery Nasal Cannula O2 Flow Rate 2.00 Capillary Refill : Less Than 3 Seconds I&O Intake and Output 10/30/19 00:00 Intake Total 2100 ml Output Total 3 ml Balance 2097 ml Intake Oral 1840 ml IV Total 260 ml Output Urine Total 3 ml # Voids 6 # Bowel Movements 2 General: Alert, Oriented X3, Cooperative HEENT: Atraumatic, PERRLA Neck: Supple, No JVD, No Thyromegaly Lungs: Clear to Auscultation, Normal Air Movement Heart: Regular Rate, Normal S1, Normal S2, No Murmurs Abdomen: Normal Bowel Sounds, Soft, No Tenderness, No Hepatosplenomegaly, No Masses Extremities: No Clubbing, No Cyanosis, No Edema, Normal Pulses, No Tenderness/Swelling Skin: No Rashes, No Breakdown, No Significant Lesion Neuro: Normal Gait, Normal Speech, Strength at 5/5 X4 Ext, Normal Tone, Sensation Intact Psych/Mental Status: Mental Status NL, Mood NL Results Lab Laboratory Tests 10/30/19 04:40 A/P-Cardiology Admission Diagnosis Congestive heart failure, acute left ventricular systolic dysfunction, ischemic cardiomyopathy Coronary artery disease Hypertension Hyperlipidemia Assessment/Plan Dizziness and lightheadedness, reporting improvement Congestive heart failure, acute left ventricular systolic dysfunction, ejection fraction 40-45 percent, probably ischemic in nature. Nonischemic cardiomyopathy, Lyme titers are negative, cardiac catheterization was done. Medical therapy is recommended, started on beta blockers, I will add losartan and monitor tolerance and response Mild elevation in troponin level, probably type II DC, no significant obstructive disease by cardiac catheterization done on October 30, 2019. Medical th erapy is recommended continue on Plavix due to aspirin allergy Shortness of breath. Reporting improvement, breathing better at this time, okay for discharge and follow-up as an outpatient I will discontinue Lovenox and use DVT prophylaxis dose at this time COVID negative tested twice Clinical Quality Measures DVT/VTE Risk/Contraindication: Risk Factor Score Per Nursin RFS Level Per Nursing on Admit: 4+=Very High CYNTHIA MALDONADO MD Oct 30, 2019 09:10
--- NOTE | 2019-10-30 09:15 | NUR ---
Pt arrived to 511 from heart cath with rt radial puncture site, Vas band in place. No bleeding noted, no s/s hematoma. Radial pulses equal et aduquate. Pt does wake up and answer questions appropriately when spoken to.
--- NOTE | 2019-10-30 10:01 | Progress Note - Hospitalist ---
Subjective HPI/CC On Admission Date Seen by Provider: Oct 30, 2019 Time Seen by Provider: 09:56 Pt is a 59yoCF with a PMH of HTN,HLD, IDDMII who presented to the ER due to SOB and dizziness though when asked why she came to the hospital she states she was told she had a stroke. I called and confirmed with the ER doctor who saw her and this was not his diagnosis or even in the differential. She did not have and does not currently have any focal deficits. When asked why she thought she had a stroke she was unsure. When reminded that she was complaining of shortness of breath and was found to be hypoxic she remembered that. On arrival to the ER her oxygen saturation was in the70s on room air. CXR showed some pulmonary edema. Sh melissa had a fever as well and COVID19 testing was done. Subjective/Events-last exam Pt reports feeling well. No complaints. Just got done with cath which was clean. Focused Exam Lactate Level 10/27/19 11:10: Lactic Acid Level 1.64 Objective Exam Vital Signs Vital Signs Date Time Temp Pulse Resp B/P (MAP) Pulse Ox O2 Delivery O2 Flow Rate FiO2 10/30/19 08:15 Nasal Cannula 2.00 10/30/19 08:00 36.4 86 18 122/83 (96) 96 Capillary Refill : Less Than 3 Seconds General Appearance: No Apparent Distress, Chronically ill, Obese Respiratory: Lungs Clear, No Respiratory Distress Cardiovascular: Regular Rate, Rhythm, No Murmur Gastrointestinal: Normal Bowel Sounds, Soft Neurologic/Psychiatric: Alert, Oriented x3 Results/Procedures Lab Laboratory Tests 10/30/19 04:40 Patient resulted labs reviewed. Imaging: Reviewed Imaging Report Assessment/Plan Assessment and Plan Assess & Plan/Chief Complaint Acute Hypoxic Respiratory Failure Pulmonary Edema Acutely decompensated systolic heart failure Likely due to heart failure Echo reveals EF of 40% Cardiology consulted COVID19 PCR and IGG negative Down to 2lpm Elevated troponin HTN HLD Cardiology consulted, appreciate recs Continue home meds BP well controlled Cardiac Cath clean acute on chronic kidney disease Creatinine trending down IDDMII SSI Continue Levemir Anxiety Continuehome meds Hypothyroidism Continue home synthroid Hypomagnesemia Replaced Clinical Quality Measures DVT/VTE Risk/Contraindication: Risk Factor Score Per Nursin RFS Level Per Nursing on Admit: 4+=Very High HUEY CONNOLLY MD Oct 30, 2019 10:01
--- NOTE | 2019-10-30 11:20 | NUR ---
Report called to CHRISTINE Glez on 4th floor. Will move pt back to room she was in prior to heart cath
[2019-10-30] MEDS: meTOprolol TARTRATE 25 MG (LOPRESSOR) TABLET PO SCH ×2 (12:30→20:54)
[2019-10-30] MEDS: CLOPIDOGREL 75 MG (PLAVIX) TABLET PO SCH (12:30)
[2019-10-30] MEDS: PANTOPRAZOLE 40 MG (PROTONIX) TAB PO SCH (12:31)
[2019-10-30] MEDS: LOSARTAN 25 MG (COZAAR) TAB PO SCH (12:31)
[2019-10-30] MEDS: ENOXAPARIN 40 MG/0.4 ML (LOVENOX) SYR SQ SCH (12:35)
[2019-10-30] MEDS: AZITHROMYCIN INJECTION 250 MG in NS (IVPB) 250 ML IV SCH (12:40)
[2019-10-30] MEDS: MELATONIN 3 MG TABLET PO SCH (20:54)
[2019-10-31 00:57] VITALS: BP 104/67
[2019-10-31] MEDS: ACETAMINOPHEN 500 MG TAB (TYLENOL) PO PRN (01:04)
[2019-10-31] MEDS: ALPRAZolam 0.5 MG (XANAX) TAB PO PRN (03:40)
[2019-10-31 04:00] VITALS: BP 110/69
[2019-10-31 05:24] VITALS: BP 110/69
[2019-10-31] MEDS ORDERED: cefTRIAXone 1,000 MG IV (ROCEPHIN) VIAL ONE (06:42)
[2019-10-31] MEDS ORDERED: WATER (STERILE) FOR INJECTION 10 ML ONE (06:42)
[2019-10-31] MEDS: inSUlin ASPART (NovoLOG) 1 UNIT/0.01 ML (CHARGE PER UNIT) SC SCH ×2 (06:57→11:50)
[2019-10-31] MEDS: CATHETER FLUSH 10 ML SYR IV SCH (06:58)
[2019-10-31] MEDS: cefTRIAXone FOR IV USE 1,000 MG in WATER (STERILE) FOR INJECTION 10 ML IV SCH (06:58)
[2019-10-31] MEDS: LEVOTHYROXINE 112 MCG (LEVOTHROID) TAB PO SCH (06:58)
[2019-10-31] MEDS ORDERED: KCL 10 MEQ TAB (MICRO K) PO SCH (07:00)
[2019-10-31 07:31] LABS: BASOPHILS % (AUTO) 0 % (0-10); EOSINOPHILS # (AUTO) 0.3 10^3/uL (0.0-0.3); EOSINOPHILS % (AUTO) 4 % (0-10); HEMATOCRIT 31 % (35-52); HEMOGLOBIN 9.4 G/DL (11.5-16.0); LYMPHOCYTES # (AUTO) 1.4 X 10^3 (1.0-4.0); LYMPHOCYTES % (AUTO) 18 % (12-44); MEAN CORPUSCULAR HEMOGLOBIN 27 PG (25-34); MEAN CORPUSCULAR HGB CONC 31 G/DL (32-36); MEAN CORPUSCULAR VOLUME 88 FL (80-99); MEAN PLATELET VOLUME 9.2 FL (7.4-10.4); MONOCYTES # (AUTO) 0.6 X 10^3 (0.0-1.0); MONOCYTES % (AUTO) 8 % (0-12); NEUTROPHILS # (AUTO) 5.1 X 10^3 (1.8-7.8); NEUTROPHILS % (AUTO) 69 % (42-75); PLATELET COUNT 373 10^3/uL (130-400); RED CELL DISTRIBUTION WIDTH 14.8 % (10.0-14.5); WHITE BLOOD COUNT 7.4 10^3/uL (4.3-11.0)
--- NOTE | 2019-10-31 07:37 | Pulmonary Progress Note ---
Subjective Date Seen by a Provider: Oct 31, 2019 Time Seen by a Provider: 07:35 Sepsis Event Evaluation Height, Weight, BMI Height: 5'6" Weight: 225lbs. oz. 102.818129ww; 40.00 BMI Method: Exam Exam Vital Signs Date Time Temp Pulse Resp B/P (MAP) Pulse Ox O2 Delivery O2 Flow Rate FiO2 10/31/19 05:24 36.5 78 20 110/69 (83) 95 Nasal Cannula 2.00 10/31/19 04:00 36.4 78 20 110/69 (83) 95 Nasal Cannula 2.00 10/31/19 01:00 85 10/31/19 00:57 36.0 60 21 104/67 (79) 92 Nasal Cannula 2.00 10/30/19 20:55 Nasal Cannula 2.00 10/30/19 20:27 36.7 93 17 121/57 (78) 90 Nasal Cannula 2.00 10/30/19 19:00 90 10/30/19 16:18 36.3 92 17 99/75 (83) 94 Nasal Cannula 2.00 10/30/19 13:04 100 10/30/19 12:00 36.6 96 18 119/79 (92) 98 Nasal Cannula 2.00 10/30/19 11:15 78 14 139/77 (97) 93 Nasal Cannula 2.00 10/30/19 10:45 81 16 143/83 (103) 94 Nasal Cannula 2.00 10/30/19 10:15 85 18 146/79 (101) 92 Nasal Cannula 2.00 10/30/19 10:00 94 16 125/71 (89) 94 Nasal Cannula 2.00 10/30/19 09:45 88 18 144/88 (106) 98 Nasal Cannula 2.00 10/30/19 09:30 92 14 148/88 (108) 92 Nasal Cannula 2.00 10/30/19 09:15 88 16 103/69 (80) 95 Nasal Cannula 2.00 10/30/19 08:15 Nasal Cannula 2.00 10/30/19 08:00 36.4 86 18 122/83 (96) 96 Nasal Cannula 2.00 I & O 10/31/19 07:00 Intake Total 3380 ml Balance 3380 ml Height & Weight Height: 5'6" Weight: 225lbs. oz. 102.039316hw; 40.00 BMI Method: General Appearance: No Apparent Distress, Chronically ill, Obese HEENT: PERRL/EOMI, Moist Mucous Membranes; No Scleral Icterus (L), No Scleral Icterus (R) Neck: Normal Inspection, Supple; No Thyromegaly Respiratory: Lungs Clear, No Respiratory Distress Cardiovascular: Regular Rate, Rhythm, No Murmur Capillary Refill: Less Than 3 Seconds Extremity: Normal Capillary Refill, No Calf Tenderness, No Pedal Edema Neurologic/Psychiatric: Alert, Oriented x3 Skin: Normal Color, Warm/Dry Lymphatic: No Adenopathy Results Lab Laboratory Tests 10/30/19 04:40 10/31/19 06:50 Assessment/Plan Assessment/Plan Acute respiratory distress -Oxygen -COVID is Negative Pneumonia Rocephin currently - will D/C tomorrow -Cultures are negative -Repeat CXR Anemia Renal failure MICHAEL BASHIR DO Oct 31, 2019 07:37
[2019-10-31 07:43] VITALS: BP 130/84
[2019-10-31 07:47] LABS: POTASSIUM 3.9 MMOL/L (3.6-5.0)
[2019-10-31 07:48] LABS: CALCIUM 10.1 MG/DL (8.5-10.1)
[2019-10-31 07:52] LABS: CREATININE SERUM 1.55 MG/DL (0.60-1.30)
[2019-10-31 07:55] LABS: MAGNESIUM 1.7 MG/DL (1.6-2.4)
[2019-10-31] MEDS: meTOprolol TARTRATE 25 MG (LOPRESSOR) TABLET PO SCH (08:09)
[2019-10-31] MEDS: CLOPIDOGREL 75 MG (PLAVIX) TABLET PO SCH (08:09)
[2019-10-31] MEDS: LOSARTAN 25 MG (COZAAR) TAB PO SCH (08:09)
[2019-10-31] MEDS: PANTOPRAZOLE 40 MG (PROTONIX) TAB PO SCH (08:09)
[2019-10-31] MEDS ORDERED: FUROSEMIDE 20 MG (LASIX) TAB PO SCH (09:00)
[2019-10-31] MEDS ORDERED: AZITHROMYCIN 250 MG TAB (ZITHROMAX) PO SCH (09:00)
--- NOTE | 2019-10-31 09:26 | Cardiology Progress Note ---
Subjective Date Seen by Provider: Oct 31, 2019 Time Seen by Provider: 09:24 Subjective/Events-last exam Patient sitting up in bed, denies any further episodes of dizziness, denies any chest pain or increased dizziness. Asking to go home. Review of Systems General: No Chills, No Night Sweats, No Fatigue, No Malaise, No Appetite, No Other HEENT: No Head Aches, No Visual Changes, No Eye Pain, No Ear Pain, No Dysphasia, No Sinus Congestion, No Post Nasal Drip, No Sore Throat, No Other Pulmonary: No Dyspnea, No Cough, No Pleuritic Chest Pain, No Other Cardiovascular: No: Chest Pain, Palpitations, Orthopnea, Paroxysmal Noc. Dyspnea, Edema, Lt Headedness, Other Objective-Cardiology Exam Last Set of Vital Signs Vital Signs 10/31/19 10/31/19 09:00 11:08 Temp 35.9 Pulse 78 Resp 18 B/P (MAP) 137/86 (103) Pulse Ox 97 O2 Delivery Room Air O2 Flow Rate 2.00 Capillary Refill : Less Than 3 Seconds I&O l Intake and Output 10/31/19 00:00 Intake Total 2790 ml Balance 2790 ml Intake Oral 1520 ml IV Total 1270 ml # Voids 9 General: Alert, Oriented X3, Cooperative HEENT: Atraumatic, PERRLA Neck: Supple, No JVD, No Thyromegaly Lungs: Clear to Auscultation, Normal Air Movement Heart: Regular Rate, Normal S1, Normal S2, No Murmurs Abdomen: Normal Bowel Sounds, Soft, No Tenderness, No Hepatosplenomegaly, No Masses Extremities: No Clubbing, No Cyanosis, No Edema, Normal Pulses, No Tenderness/Swelling Skin: No Rashes, No Breakdown, No Significant Lesion Neuro: Normal Gait, Normal Speech, Strength at 5/5 X4 Ext, Normal Tone, Sensation Intact Psych/Mental Status: Mental Status NL, Mood NL Results Lab Laboratory Tests 10/31/19 06:50 A/P-Cardiology Admission Diagnosis Congestive heart failure, acute left ventricular systolic dysfunction, ischemic cardiomyopathy Coronary artery disease Hypertension Hyperlipidemia Assessment/Plan Dizziness and lightheadedness, reporting improvement Congestive heart failure, acute left ventricular systolic dysfunction, ejection fraction 40-45 percent. Nonischemic cardiomyopathy, Lyme titers are negative, cardiac catheterization was done. Medical therapy is recommended, maintained on beta blockers and losartan, continue to monitor. Mild elevation in troponin level, probably type II NE, no significant obs tructive disease by cardiac catheterization done on October 30, 2019. Medical therapy is recommended continue on Plavix due to aspirin allergy Shortness of breath. Reporting improvement, breathing better at this time, okay for discharge and follow-up as an outpatient I will discontinue Lovenox and use DVT prophylaxis dose at this time COVID negative tested twice OK for discharge from cardiology standpoint. F/u in our office in 3-4 weeks. Patient was seen and evaluated with Echo, examination performed, management plan was discussed, agree with the current scribed note, I made few changes to the note using Italic font Patient was seen and evaluated with Echo, feeling better, no new complaint, wrist/access site is healing well no complication Continue on current medication, arrange for follow-up as an outpatient, okay for discharge Clinical Quality Measures DVT/VTE Risk/Contraindication: Risk Factor Score Per Nursin RFS Level Per Nursing on Admit: 4+=Very High ECHO CONCEPCION Oct 31, 2019 09:26 CYNTHIA MALDONADO MD Oct 31, 2019 12:29
--- NOTE | 2019-10-31 09:32 | Diagnostic Imaging Report ---
INDICATION: Shortness of breath and CHF. TIME OF EXAM: 9:26 AM. COMPARISON: Correlation is made with the prior chest from 10/27/2019. FINDINGS: The heart is enlarged. The previously noted bilateral infiltrates have resolved. The pulmonary vascularity is normal. There is no effusion or pneumothorax. The right upper extremity PICC line has its tip at the SVC/right atrial junction. IMPRESSION: Resolution of the previously seen bilateral pulmonary infiltrates when compared with the examination of 4 days earlier. Dictated by: Dictated on workstation # [id number]
[2019-10-31] MEDS ORDERED: LOSA25TA41 PO (09:50)
[2019-10-31] MEDS ORDERED: MTP25TSR PO (09:50)
[2019-10-31 11:08] VITALS: BP 137/86
[2019-10-31] MEDS: ENOXAPARIN 40 MG/0.4 ML (LOVENOX) SYR SQ SCH (11:50)
[2019-11-01 11:45] LABS: RSV PCR TEST Not Detected (Not Detected)
--- NOTE | 2019-11-01 16:25 | Discharge Summary ---
Discharge Summary Hospital Course Was the Problem List Reviewed?: Yes Problems/Dx: (1) Non-ischemic cardiomyopathy Status: Acute (2) Acute diastolic heart failure Status: Acute Hospital Course Date of Admission: Oct 27, 2019 at 14:47 Admission Diagnosis : Acute respiratory failure with hypoxia Family Physician/Provider: Gertrudis Sheriff Physician Date of Discharge: 11/01/19 Discharge Diagnosis: Acute diastolic heart failure due to nonischemic cardiomyopathy Hospital Course: Elba Dutta is a 59-year-old female who presented with shortness of breath an d was admitted with acute diastolic heart failure due to nonischemic cardiomyopathy. She underwent an ischemic evaluation with a left heart catheterization which showed no significant coronary artery disease. She had an echocardiogram which revealed ejection fraction 45-50 percent she was started on losartan. She was continued on metoprolol succinate. She was continued on Lasix. She was tested for coronavirus and this was negative 2. She has follow-up scheduled with cardiology. She was discharged in stable condition. Labs and Pending Lab Test: Microbiology 10/27/19 MRSA Screen - Final, Complete MRSA not isolated 10/27/19 Blood Culture - Preliminary, Resulted No growth Home Meds Active Losartan Potassium 25 Mg Tablet 25 Mg PO DAILY 30 Days Metoprolol Succinate 25 Mg Tab.er.24h 25 Mg PO DAILY 30 Days Reported Aspirin EC (Aspirin) 81 Mg Tablet.dr 81 Mg PO DAILY Melatonin 5 Mg Tablet 5 Mg PO HS Levothyroxine Sodium 112 Mcg Tablet 112 Mcg PO DAILY Lantus Solostar (Insulin Glargine,Hum.rec.anlog) 100 Unit/1 Ml Insuln.pen 13 U nit SQ HS Lantus Solostar (Insulin Glargine,Hum.rec.anlog) 100 Unit/1 Ml Insuln.pen 20 Units SC DAILY Humalog (Insulin Lispro) 100 Unit/1 Ml Vial 10 Units SC TIDWM Onglyza (Saxagliptin HCl) 2.5 Mg Tablet 2.5 Mg PO HS Hydrocodone-Acetamin 7.5-325 (Hydrocodone/Acetaminophen) 1 Each Tablet 1 Tab PO Q6- 8H PRN Methocarbamol 500 Mg Tablet 750 Mg PO DAILY TAKES 1 & 500MG TABS Sumatriptan Succinate 100 Mg Tablet 100 Mg PO DAILY PRN Loratadine 10 Mg Tablet 10 Mg PO DAILY Nortriptyline HCl 50 Mg Capsule 50 Mg PO BID Metformin HCl 1,000 Mg Tablet 1,000 Mg PO BID Proair Hfa (Albuterol Sulfate) 8.5 Gm Hfa.aer.ad 2 Puff PO QID PRN Alprazolam 1 Mg Tablet 1 Mg PO HS Omeprazole 20 Mg Capsule.dr 20 Mg PO HS Hydroxyzine HCl 25 Mg Tablet 25 Mg PO DAILY PRN Atorvastatin Calcium 20 Mg Tablet 20 Mg PO HS Furosemide 40 Mg Tablet 40 Mg PO DAILY Glipizide 10 Mg Tablet 20 Mg PO BID TAKES 2 (10MG) TABS TWICE DAILY Assessment/Pt Instructions Take medications as prescribed. Follow up with cardiology. Follow-up with your primary care physician. Discharge Instructions Discharge Diet: No Restrictions Pneumonia Vaccine Order Indica: Yes Discharge Physical Examination Vital Signs Vital Signs Date Time Temp Pulse Resp B/P (MAP) Pulse Ox O2 Delivery O2 Flow Rate FiO2 10/31/19 11:08 35.9 78 18 137/86 (103) 97 Room Air 10/31/19 09:00 2.00 General Appearance: No Apparent Distress, WD/WN Respiratory: Lungs Clear, Normal Breath Sounds, No Respiratory Distress Cardiovascular: Regular Rate, Rhythm, No Edema, No Murmur Gastrointestinal: Normal Bowel Sounds, Non Tender, Soft Extremity: Normal Inspection, Non Tender, No Pedal Edema Skin: Normal Color, Warm/Dry Neurologic/Psychiatric: Alert, Oriented x3, No Motor/Sensory Deficits, Normal Mood/Affect Allergies: Coded Allergies: aspirin (Verified Allergy, Unknown, 05/09/15) codeine (Verified Allergy, Unknown, 05/09/15) Discharge Summary Date of Admission Oct 27, 2019 at 14:47 Date of Discharge Oct 31, 2019 at 12:20 Discharge Date: Oct 31, 2019 Discharge Time: 12:20 Admission Diagnosis Acute Hypoxic Respiratory Failure Consults/Procedures Consulations Cardiology Discharge Diagnosis (1) Acute diastolic heart failure Status: Acute (2) Non-ischemic cardiomyopathy Status: Acute Clinical Quality Measures DVT/VTE Risk/Contraindication: Risk Factor Score Per Nursin RFS Level Per Nursing on Admit: 4+=Very High GUMARO GRUBBS MD Nov 01, 2019 16:25
== END 2019-10-31 12:20 | disposition home or self-care (01) | DRG 280 ==
LOC: EDUNIT# 10:28 → ER 10:29 → ICU 14:47 → 4TH 10-28 16:45
PROVIDERS: ADMIT Family Medicine; ATTEND Family Medicine
PROC: 4A023N7 Measurement of Cardiac Sampling and Pressure, Left Heart, Percutaneous Approach (ICD-10-PCS; principal; 2019-10-30)
PROC: B2111ZZ Fluoroscopy of Multiple Coronary Arteries using Low Osmolar Contrast (ICD-10-PCS; 2019-10-30)
DX: I13.0 Hypertensive heart and chronic kidney disease with heart failure and stage 1 through stage 4 chronic kidney disease, or unspecified chronic kidney disease (principal); I50.21 Acute systolic (congestive) heart failure; I21.A1 Myocardial infarction type 2; I42.9 Cardiomyopathy, unspecified; J96.01 Acute respiratory failure with hypoxia; J18.9 Pneumonia, unspecified organism; N28.9 Disorder of kidney and ureter, unspecified; N18.9 Chronic kidney disease, unspecified; E11.40 Type 2 diabetes mellitus with diabetic neuropathy, unspecified; I25.10 Atherosclerotic heart disease of native coronary artery without angina pectoris; K21.9 Gastro-esophageal reflux disease without esophagitis; J45.909 Unspecified asthma, uncomplicated; M54.9 Dorsalgia, unspecified; F41.9 Anxiety disorder, unspecified; E83.42 Hypomagnesemia; E83.39 Other disorders of phosphorus metabolism; D64.9 Anemia, unspecified; Z20.828 Contact with and (suspected) exposure to other viral communicable diseases; E78.5 Hyperlipidemia, unspecified
CPT/HCPCS: 36415; 36569; 71045; 76937; 80048; 80053; 80306; 81000; 82728; 82805; 82962; 83605; 83615; 83735; 83880; 84100; 84145; 84443; 84484; 85007; 85025; 85027; 85379; 85384; 85610; 85730; 86141; 86618; 86666; 86668; 86757; 86769; 87040; 87081; 87449; 87631; 87635; 87899; 93005; 93041; 93306; 93458; 96361; 96365; 96366; 96372; 96375

== ENCOUNTER → 2019-12-19 | Outpatient (CLI) | payer MEDICAID ==
[~2019-12-19] MED LIST changes: +AMLO5TAB9 PO; +ASPI-983 PO; +HYDR-3817 PO; +INSU100I10 SC; +INSU100I10 SQ; +INSU100V SC; +LEVO112T55 PO; +LOSA25TA41 PO; +MELA5TAB14 PO; +METH500T7 PO; +MTP25TSR PO; +RT-ALBUTEROL SULF 2.5 MG/3 ML PRE-MIX VIAL INH ONE; +SAXA2.5T PO
== END ==
LOC: RT 15:01
PROVIDERS: ATTEND Internal Medicine Critical Care Medicine
DX: J18.9 Pneumonia, unspecified organism (principal); E66.9 Obesity, unspecified
CPT/HCPCS: 94060; 94726; 94729

== ENCOUNTER → 2020-02-24 | Outpatient (CLI) | payer MEDICAID ==
[~2020-02-24] MED LIST changes: +ASPI-1238 PO; -ASPI-983 PO; -RT-ALBUTEROL SULF 2.5 MG/3 ML PRE-MIX VIAL INH ONE
== END ==
LOC: LABNPT 05:57
PROVIDERS: ATTEND Nurse Practitioner Family
DX: Z01.812 Encounter for preprocedural laboratory examination (principal); Z20.828 Contact with and (suspected) exposure to other viral communicable diseases
CPT/HCPCS: 87635

== ENCOUNTER 2020-02-27 19:39 | Outpatient (CLI) | payer MEDICAID | END 2020-02-28 07:10 | disposition home or self-care (01) | LOC: SLEEP 19:39 | PROVIDERS: ATTEND Nurse Practitioner Family | DX: G47.33 Obstructive sleep apnea (adult) (pediatric) (principal) | CPT/HCPCS: 95811 ==

== ENCOUNTER → 2020-03-01 | Outpatient (CLI) | payer MEDICAID ==
[2020-03-01 09:37] LABS: AMPHETAMINE SCREEN, URINE NEGATIVE (NEGATIVE); BENZODIAZEPINES SCREEN URINE POSITIVE (NEGATIVE); CANNABINOID SCREEN, URINE NEGATIVE (NEGATIVE); COCAINE SCREEN URINE NEGATIVE (NEGATIVE); METHAMPHETAMINE SCREEN URINE S NEGATIVE (NEGATIVE); OPIATE SCREEN URINE POSITIVE (NEGATIVE)
[2020-03-01 09:38] LABS: BARBITURATE SCREEN URINE NEGATIVE (NEGATIVE); METHADONE STAT NEGATIVE (NEGATIVE); OXYCODONE STAT NEGATIVE (NEGATIVE); PROPOXYPHENE STAT NEGATIVE (NEGATIVE); TRICYCLIC ANTIDEPRESSANTS SCRE POSITIVE (NEGATIVE)
== END ==
LOC: LABNPT 09:05
PROVIDERS: ATTEND Family Medicine
DX: G89.4 Chronic pain syndrome (principal)
CPT/HCPCS: 80306

== ENCOUNTER 2020-05-29 10:10 | Emergency (ER) | payer MEDICAID ==
[~2020-05-29] VITALS: Ht 167.7 cm; Wt 100.0 kg
[~2020-05-29 10:10] MED LIST changes: +AMLO-250 PO; -AMLO5TAB9 PO
[2020-05-29] MEDS ORDERED: HYDROcodone/APAP 7.5 MG/325 MG (LORTAB, LORCET PLUS) TABLET PO STA (10:34)
[2020-05-29] MEDS ORDERED: KETOROLAC 30 MG/ML VIAL IM STA (10:34)
--- NOTE | 2020-05-29 11:16 | ED Upper Extremity ---
General Chief Complaint: Upper Extremity Stated Complaint: PAIN IN RIGHT ARM AND HAND Nursing Triage Note: AMB TO ED WITH C/O OF R ARM PAIN REPORTS THT HAVNG PAIN IN R ARM FROM WRIST TO SHOULDER. AFTER SHE FELL OUT OF BED THIS AM. THINKS SHE MAY OF FELL ON ARM. Nursing Sepsis Screen: No Definite Risk Source: patient Exam Limitations: no limitations (STEF TALAMANTES MD) History of Present Illness Date Seen by Provider: May 29, 2020 Time Seen by Provider: 10:30 Initial Comments Here with report of right arm pain. States that she fell out of bed this morning. When she woke up she noticed that she had right arm pain that seems to be mostly around the right wrist but radiates up to the shoulder. She has got great range of motion to the shoulder and elbow but limited at the wrist. There is some swelling there. She was unable to take her pain medicine because she could not open the bottle due to the pain. Presents for evaluation. Denies other injury. Onset: this morning Severity: moderate Pain/Injury Location: right arm, right forearm, right wrist, right hand Method of Injury: fell Modifying Factors: Improves With Immobilization; Worse With Movement (STEF TOURE MD) Allergies and Home Medications Allergies Coded Allergies: aspirin (Verified Allergy, Unknown, 05/09/15) codeine (Verified Allergy, Unknown, 05/09/15) Home Medications Albuterol Sulfate 8.5 Gm Hfa.aer.ad, 2 PUFF PO QID PRN for SHORTNESS OF BREATH, (Reported) Alprazolam 1 Mg Tablet, 1 MG PO HS, (Reported) Aspirin 81 Mg Tablet.dr, 81 MG PO DAILY, (Reported) Atorvastatin Calcium 20 Mg Tablet, 20 MG PO HS, (Reported) Furosemide 40 Mg Tablet, 40 MG PO DAILY, (Reported) Glipizide 10 Mg Tablet, 20 MG PO BID, (Reported) TAKES 2 (10MG) TABS TWICE DAILY Hydrocodone/Acetaminophen 1 Each Tablet, 1 TAB PO Q6- 8H PRN for PAIN-MODERATE (5-7), (Reported) Hydroxyzine HCl 25 Mg Tablet, 25 MG PO DAILY PRN for ITCHING, (Reported) Insulin Glargine,Hum.rec.anlog 100 Unit/1 Ml Insuln.pen, 20 UNITS SC DAILY, (Reported) Insulin Glargine,Hum.rec.anlog 100 Unit/1 Ml Insuln.pen, 13 UNIT SQ HS, (Reported) Insulin Lispro 100 Unit/1 Ml Vial, 10 UNITS SC TIDWM, (Reported) Levothyroxine Sodium 112 Mcg Tablet, 112 MCG PO DAILY, (Reported) Loratadine 10 Mg Tablet, 10 MG PO DAILY, (Reported) Losartan Potassium 25 Mg Tablet, 25 MG PO DAILY Prescribed by: GUMARO GRUBBS on 10/31/19 0950 Melatonin 5 Mg Tablet, 5 MG PO HS, (Reported) Metformin HCl 1,000 Mg Tablet, 1,000 MG PO BID, (Reported) Methocarbamol 500 Mg Tablet, 750 MG PO DAILY, (Reported) TAKES 1 & 500MG TABS Metoprolol Succinate 25 Mg Tab.er.24h, 25 MG PO DAILY Prescribed by: GUMARO GRUBBS on 10/31/19 0950 Nortriptyline HCl 50 Mg Capsule, 50 MG PO BID, (Reported) Omeprazole 20 Mg Capsule.dr, 20 MG PO HS, (Reported) Saxagliptin HCl 2.5 Mg Tablet, 2.5 MG PO HS, (Reported) Sumatriptan Succinate 100 Mg Tablet, 100 MG PO DAILY PRN for MIGRAINE, (Reported) Patient Home Medication List Home Medication List Reviewed: Yes (STEF TALAMANTES MD) Review of Systems Constitutional: see HPI; No chills, No fever Respiratory: no symptoms reported Cardiovascular: no symptoms reported Gastrointestinal: no symptoms reported Genitourinary: no symptoms reported Musculoskeletal: see HPI, joint pain, muscle pain Skin: No change in color, No lesions Psychiatric/Neurological: Denies Paresthesia, Denies Tingling, Denies Weakness (STEF TALAMANTES MD) Past Mpienpo-Puffql-Xtwcux Hx Past Med/Social Hx: Reviewed Nursing Past Med/Soc Hx (STEF TALAMANTES MD) Patient Social History Alcohol Use: Denies Use Recreational Drug Use: No Smoking Status: Never a Smoker Recent Foreign Travel: No Contact w/Someone Who Travel: No Recent Infectious Disease Expo: No (STEF TALAMANTES MD) Immunizations Up To Date Date of Influenza Vaccine: Feb 22, 2015 (STEF TALAMANTES MD) Seasonal Allergies Seasonal Allergies: No (STEF TALAMANTES MD) Past Medical History Surgeries: Yes ( X 3; EGD/COLONOSCOPY; RIGHT CARPAL TUNNEL) Appendectomy, Section, Gallbladder, Orthopedic, Tubal Ligation Respiratory: Yes Asthma Cardiac: Yes Hypertension Neurological: Yes (NEUROPATHY IN LEGS AND HANDS) Neuropathy Reproductive Disorders: Yes (UTERINE FIBROID) 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: Menopausal Gastrointestinal: Yes Gastroesophageal Reflux Musculoskeletal: Yes (RIGHT KNEE PROBLEMS, RESTLESS LEG SYNDROME) Degenerate Disk Disease, Chronic Back Pain Endocrine: Yes Diabetes, Non-Insulin dep Cancer: No Psychosocial: Yes Anxiety Blood Disorders: No (STEF TALAMANTES MD) Family Medical History Reviewed Nursing Family Hx (STEF TALAMANTES MD) Diabetes mellitus 19 MOTHER FH: skin cancer 19 MOTHER Physical Exam Vital Signs Vital Signs - First Documented 05/29/20 10:23 Temp 35.8 Pulse 100 Resp 18 B/P (MAP) 187/108 (134) Pulse Ox 97 O2 Delivery Room Air (ORALIA STODDARD APRN) Vital Signs Capillary Refill : Less Than 3 Seconds (STEF TALAMANTES MD) Height, Weight, BMI Height: 5'6" Weight: 225lbs. oz. 102.430294cb; 35.00 BMI Method: General Appearance: WD/WN, mild distress Cardiovascular: regular rate, rhythm, no murmur Respiratory: lungs clear, normal breath sounds Elbow/Forearm: Right, pain, soft tissue tenderness, swelling Wrist: Yes limited ROM (Right wrist), Yes soft tissue tenderness, Yes swelling (Right wrist) Hand: normal ROM, Bilateral Neurologic/Tendon: normal sensation, normal motor functions Neurologic/Psychiatric: alert, oriented x 3 Skin: normal color, warm/dry (STEF TALAMANTES MD) Progress/Results/Core Measures Results/Orders Vital Signs/I&O (ORALIA STODDARD APRN) Blood Pressure Mean: 134 Progress Progress Note : Progress Note Seen and evaluated. Toradol 30 mg IM and hydrocodone 7.5 mg p.o. ordered. X- ray right wrist and forearm. Monitor patient. (STEF TALAMANTES MD) Progress Note : Progress Note x-ray shows potential age-indeterminate scapholunate injury. Placed right thumb Spica splint, neurovascular intact per and post splint application. Reviewed discharge instructions and she is agreeable with plan. (ORALIA STODDARD APRN) Diagnostic Imaging Diagonstic Imaging: Xray Comments NAME: ELENA GARCIA REC#: [id number] PT STATUS: REG ER : 1960 PHYSICIAN: STEF TALAMANTES MD ADMIT DATE: 05/29/20/ER Draft Date of Exam:05/29/20 WRIST, RIGHT, 3 VIEWS OR MORE INDICATION: Wrist pain after fall. COMPARISON: None available. TECHNIQUE: Three views of the right wrist are obtained. 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 No acute fracture. Borderline widening of the scapholunate interval could be positional versus due to age-indeterminate scapholunate injury. Chondrocalcinosis of the TFC disc. IMPRESSION: 1. No acute fracture about the right wrist. 2. Potential age-indeterminate scapholunate injury. 3. Severe degenerative arthritis at the thumb base. Dictated on workstation # [id number] Dict: 05/29/20 1137 Trans: 05/29/20 1143 [facility] [id number] Interpreted by: IDRIS FELICIANO MD Electronically signed by: (ORALIA STODDARD APRN) Departure Impression Primary Impression: Wrist pain, right Disposition: HOME, SELF-CARE Condition: Improved Departure-Patient Inst. Decision time for Depature: 12:12 (ORALIA STODDARD APRN) Referrals: NO,LOCAL PHYSICIAN (PCP/Family) Primary Care Physician Patient Instructions: Common Wrist Injuries (DC) Add. Discharge Instructions: Plan: 1. Discharge home. Do not get splint wet. Cover with plastic bag or wrap when showering. 2. Rest, ice 20 minutes at a time every couple of hours for swelling and pain, use mitch wrap over the next 3 days, and keep elevated above your heart as much as possible. The most swelling will occur over the next 48-72 hours. 3. May take Tylenol or your home Hydrocodone as needed for pain per package dire ctions. Do not take more than directed. 4. Follow up with orthopedic provider of your choice. Local orthopedic surgeon is Dr. Chavarria, you can call this phone number [phone] to schedule follow up appointment. 5. Return for any new or concerning symptoms. All discharge instructions reviewed with patient and/or family. Voiced understanding. STEF TALAMANTES MD May 29, 2020 11:16 ORALIA STODDARD APRN May 29, 2020 12:16
--- NOTE | 2020-05-29 11:23 | Diagnostic Imaging Report ---
INDICATION: Injury to right forearm. TECHNIQUE: AP and lateral views of the right forearm were obtained. FINDINGS: No fracture or acute bony abnormality is seen. IMPRESSION: Negative right forearm. Dictated by: Dictated on workstation # [id number]
--- NOTE | 2020-05-29 11:44 | Diagnostic Imaging Report ---
INDICATION: Wrist pain after fall. COMPARISON: None available. TECHNIQUE: Three views of the right wrist are obtained. 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 No acute fracture. Borderline widening of the scapholunate interval could be positional versus due to age-indeterminate scapholunate injury. Chondrocalcinosis of the TFC disc. IMPRESSION: 1. No acute fracture about the right wrist. 2. Potential age-indeterminate scapholunate injury. 3. Severe degenerative arthritis at the thumb base. Dictated by: Dictated on workstation # [id number]
--- NOTE | 2020-05-29 12:10 | NUR ---
SPLINT BY ORALIA CASTELLANOS
[2020-05-29 12:31] VITALS: BP 166/97
== END 2020-05-29 12:31 | disposition home or self-care (01) ==
LOC: EDUNIT# 10:10 → ER 10:13
DX: M25.531 Pain in right wrist (principal); I10 Essential (primary) hypertension; E11.40 Type 2 diabetes mellitus with diabetic neuropathy, unspecified; J45.909 Unspecified asthma, uncomplicated; K21.9 Gastro-esophageal reflux disease without esophagitis; F41.9 Anxiety disorder, unspecified; G89.29 Other chronic pain; Z80.8 Family history of malignant neoplasm of other organs or systems; Z88.6 Allergy status to analgesic agent; Z88.5 Allergy status to narcotic agent; Z79.4 Long term (current) use of insulin; Z79.82 Long term (current) use of aspirin; Z79.891 Long term (current) use of opiate analgesic; W06.XXXA Fall from bed, initial encounter
CPT/HCPCS: 29125; 73090; 73110; 99284; A4565

== ENCOUNTER 2020-09-05 15:49 | Observation (INO) | payer MEDICAID ==
[~2020-09-05] VITALS: Ht 167 cm; Wt 99.0 kg
[~2020-09-05 15:49] MED LIST changes: +BUTA-235; -BUTA1TAB9; -LISI-552 PO; +LISI20TA26 PO; +METH-731 PO; +METH-732; -METH500T7 PO; -METH750T3
[2020-09-05 16:03] LABS: BASOPHILS % (AUTO) 1 % (0-10); EOSINOPHILS # (AUTO) 0.5 10^3/uL (0.0-0.3); EOSINOPHILS % (AUTO) 6 % (0-10); HEMATOCRIT 37 % (35-52); HEMOGLOBIN 11.3 g/dL (11.5-16.0); LYMPHOCYTES # (AUTO) 1.7 X 10^3 (1.0-4.0); LYMPHOCYTES % (AUTO) 22 % (12-44); MEAN CORPUSCULAR HEMOGLOBIN 27 pg (25-34); MEAN CORPUSCULAR HGB CONC 31 g/dL (32-36); MEAN CORPUSCULAR VOLUME 87 fL (80-99); MEAN PLATELET VOLUME 9.2 fL (9.0-12.2); MONOCYTES # (AUTO) 0.5 X 10^3 (0.0-1.0); MONOCYTES % (AUTO) 7 % (0-12); NEUTROPHILS # (AUTO) 5.1 X 10^3 (1.8-7.8); NEUTROPHILS % (AUTO) 65 % (42-75); PLATELET COUNT 340 10^3/uL (130-400); WHITE BLOOD COUNT 7.9 10^3/uL (4.3-11.0)
--- NOTE | 2020-09-05 16:11 | ED Fall/Injury ---
General Stated Complaint: WEAKNESS History of Present Illness Date Seen by Provider: Sep 05, 2020 Time Seen by Provider: 15:42 Initial Comments 60-year-old female fell at home earlier today, her son was able to help her to the bedroom but she was feeling weak. He reports she was fine at 10:00 am, he returned home at 1500 and she was on the floor. She was brought here via EMS. She reports a fall 4 days ago at [facility] and 2 days at [facility] as well. She does not take anticoagulants but she does take aspirin daily. She is a poor historian. She looses her balance and falls easily. She is uncertain if she hit her head with any of these falls. She has a history of narcolepsy and sleep apnea, she uses a CPAP at night. Even with conversation she easily falls asleep but easily arousable. Her son lives with her but she is independent with her care. Her ex- reports they are treating her home for bed bugs. She has some excoriated areas to UEs and LEs. Occurred: this morning Injuries/Pain Location: abdomen (Patient reports chronic abdominal pain, history of colon cancer), lower extremity (Left knee) Context: unknown Loss of Consciousness: unsure Associated Symptoms (Fall): Abdominal Pain; No Chest Pain, No Confusion, No Dizziness, No Headache; Lightheadedness; No Nausea/Vomiting, No Neck Pain, No Trouble Walking, No Vision Changes; Other (Generalized weakness) Allergies and Home Medications Allergies Coded Allergies: aspirin (Verified Allergy, Unknown, 05/09/15) codeine (Verified Allergy, Unknown, 05/09/15) Home Medications Albuterol Sulfate 8.5 Gm Hfa.aer.ad, 2 PUFF PO QID PRN for SHORTNESS OF BREATH, (Reported) Alprazolam 1 Mg Tablet, 1 MG PO HS, (Reported) Aspirin 81 Mg Tablet.dr, 81 MG PO DAILY, (Reported) Atorvastatin Calcium 20 Mg Tablet, 20 MG PO HS, (Reported) Furosemide 40 Mg Tablet, 40 MG PO DAILY, (Reported) Glipizide 10 Mg Tablet, 20 MG PO BID, (Reported) TAKES 2 (10MG) TABS TWICE DAILY Hydrocodone/Acetaminophen 1 Each Tablet, 1 TAB PO Q6- 8H PRN for PAIN-MODERATE (5-7), (Reported) Hydroxyzine HCl 25 Mg Tablet, 25 MG PO DAILY PRN for ITCHING, (Reported) Insulin Glargine,Hum.rec.anlog 100 Unit/1 Ml Insuln.pen, 20 UNITS SC DAILY, (Reported) Insulin Glargine,Hum.rec.anlog 100 Unit/1 Ml Insuln.pen, 13 UNIT SQ HS, (Reported) Insulin Lispro 100 Unit/1 Ml Vial, 10 UNITS SC TIDWM, (Reported) Levothyroxine Sodium 112 Mcg Tablet, 112 MCG PO DAILY, (Reported) Loratadine 10 Mg Tablet, 10 MG PO DAILY, (Reported) Losartan Potassium 25 Mg Tablet, 25 MG PO DAILY Prescribed by: GUMARO GRUBBS on 10/31/19 0950 Melatonin 5 Mg Tablet, 5 MG PO HS, (Reported) Metformin HCl 1,000 Mg Tablet, 1,000 MG PO BID, (Reported) Methocarbamol 500 Mg Tablet, 750 MG PO DAILY, (Reported) TAKES 1 & 500MG TABS Metoprolol Succinate 25 Mg Tab.er.24h, 25 MG PO DAILY Prescribed by: GUMARO GRUBBS on 10/31/19 0950 Nortriptyline HCl 50 Mg Capsule, 50 MG PO BID, (Reported) Omeprazole 20 Mg Capsule.dr, 20 MG PO HS, (Reported) Saxagliptin HCl 2.5 Mg Tablet, 2.5 MG PO HS, (Reported) Sumatriptan Succinate 100 Mg Tablet, 100 MG PO DAILY PRN for MIGRAINE, (Reported) Patient Home Medication List Home Medication List Reviewed: Yes Review of Systems Review of Systems Constitutional: see HPI, weakness Respiratory: no symptoms reported, see HPI Cardiovascular: no symptoms reported, see HPI Gastrointestinal: RLQ, see HPI Musculoskeletal: see HPI, joint pain (right knee) All Other Systems Reviewed Negative Unless Noted: Yes Past Rbjnmqt-Ybbozt-Dyonly Hx Past Med/Social Hx: Reviewed Nursing Past Med/Soc Hx Immunizations Up To Date Date of Influenza Vaccine: Feb 22, 2015 Seasonal Allergies Seasonal Allergies: No Past Medical History Surgeries: Yes ( X 3; EGD/COLONOSCOPY; RIGHT CARPAL TUNNEL) Appendectomy, Section, Gallbladder, Orthopedic, Tubal Ligation Respiratory: Yes Asthma Cardiac: Yes Hypertension Neurological: Yes (NEUROPATHY IN LEGS AND HANDS) Neuropathy Reproductive Disorders: Yes (UTERINE FIBROID) 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 oz. 102.954034pq; 35.00 BMI Method: General Appearance: WD/WN, no apparent distress HEENT: PERRL/EOMI, normal ENT inspection, TMs normal, pharynx normal Neck: non-tender, full range of motion, supple, normal inspection Cardiovascular: normal peripheral pulses, regular rate, rhythm, no edema Respiratory: chest non-tender, lungs clear, normal breath sounds Gastrointestinal: normal bowel sounds, soft; No distended, No guarding, No rebound; tenderness (Trace right lower quadrant) Back: normal inspection, no CVA tenderness, no vertebral tenderness Extremities: normal range of motion, non-tender, other (Left knee trace effusion and tenderness to the patella, limitation of motion secondary to pain.) Neurologic/Psychiatric: no motor/sensory deficits, alert, normal mood/affect, oriented x 3, other (speech is fast but not slurred, difficult to understand. No facial or tongue swelling. ) [place] Coma Score Best Eye Response: (4) Open Spontaneously Best Verbal Response: (5) Oriented Best Motor Response: (6) Obeys Commands Ellis Total: 15 Progress/Results/Core Measures Results/Orders Lab Results Laboratory Tests Test 09/05/20 15:55 09/05/20 16:55 Range/Units White Blood Count 7.9 4.3-11.0 10^3/uL Red Blood Count 4.25 3.80-5.11 10^6/uL Hemoglobin 11.3 L 11.5-16.0 g/dL Hematocrit 37 35-52 % Mean Corpuscular Volume 87 80-99 fL Mean Corpuscular Hemoglobin 27 25-34 pg Mean Corpuscular Hemoglobin Concent 31 L 32-36 g/dL Red Cell Distribution Width 15.4 H 10.0-14.5 % Platelet Count 340 130-400 10^3/uL Mean Platelet Volume 9.2 9.0-12.2 fL Immature Granulocyte % (Auto) 0 % Neutrophils (%) (Auto) 65 42-75 % Lymphocytes (%) (Auto) 22 12-44 % Monocytes (%) (Auto) 7 0-12 % Eosinophils (%) (Auto) 6 0-10 % Basophils (%) (Auto) 1 0-10 % Neutrophils # (Auto) 5.1 1.8-7.8 X 10^3 Lymphocytes # (Auto) 1.7 1.0-4.0 X 10^3 Monocytes # (Auto) 0.5 0.0-1.0 X 10^3 Eosinophils # (Auto) 0.5 H 0.0-0.3 10^3/uL Basophils # (Auto) 0.0 0.0-0.1 10^3/uL Immature Granulocyte # (Auto) 0.0 0.0-0.1 10^3/uL Prothrombin Time 11.8 L 12.2-14.7 SEC INR Comment 0.8 0.8-1.4 Activated Partial Thromboplast Time 28 24-35 SEC Sodium Level 140 135-145 MMOL/L Potassium Level 4.6 3.6-5.0 MMOL/L Chloride Level 101 98-107 MMOL/L Carbon Dioxide Level 26 21-32 MMOL/L Anion Gap 13 5-14 MMOL/L Blood Urea Nitrogen 20 H 7-18 MG/DL Creatinine 1.89 H 0.60-1.30 MG/DL Estimat Glomerular Filtration Rate 27 BUN/Creatinine Ratio 11 Glucose Level 121 H 70-105 MG/DL Calcium Level 9.8 8.5-10.1 MG/DL Corrected Calcium 9.7 8.5-10.1 MG/DL Total Bilirubin 0.2 0.1-1.0 MG/DL Aspartate Amino Transf (AST/SGOT) 32 5-34 U/L Alanine Aminotransferase (ALT/SGPT) 39 0-55 U/L Alkaline Phosphatase 78 40-136 U/L Troponin I < 0.028 <0.028 NG/ML C-Reactive Protein High Sensitivity 2.35 H 0.00-0.50 MG/DL B-Type Natriuretic Peptide 16.1 <100.0 PG/ML Total Protein 7.5 6.4-8.2 GM/DL Albumin 4.1 3.2-4.5 GM/DL Urine Color YELLOW Urine Clarity CLEAR Urine pH 5.5 5-9 Urine Specific [place] 1.015 L 1.016-1.022 Urine Protein TRACE H NEGATIVE Urine Glucose (UA) NEGATIVE NEGATIVE Urine Ketones NEGATIVE NEGATIVE Urine Nitrite NEGATIVE NEGATIVE Urine Bilirubin NEGATIVE NEGATIVE Urine Urobilinogen 0.2 < = 1.0 MG/DL Urine Leukocyte Esterase NEGATIVE NEGATIVE Urine RBC (Auto) NEGATIVE NEGATIVE Urine RBC NONE /HPF Urine WBC NONE /HPF Urine Squamous Epithelial Cells NONE /HPF Urine Crystals NONE /LPF Urine Bacteria NEGATIVE /HPF Urine Casts NONE /LPF Urine Mucus NEGATIVE /LPF Urine Culture Indicated NO My Orders Orders - TONIO ESCALERA Ct Head Wo-R/O Stroke (09/05/20 15:55) BNP (09/05/20 15:55) Cbc With Automated Diff (09/05/20 15:55) Comprehensive Metabolic Panel (09/05/20 15:55) Hs C Reactive Protein (09/05/20 15:55) Protime With Inr (09/05/20 15:55) Partial Thromboplastin Time (09/05/20 15:55) Troponin I (09/05/20 15:55) Ua Culture If Indicated (09/05/20 15:55) Knee, Left, 3 Views (09/05/20 16:07) Vital Signs/I&O 09/05/20 15:49 Temp 36.6 Pulse 92 Resp 16 B/P (MAP) 138/105 (116) Pulse Ox 96 O2 Delivery Room Air Progress Progress Note : Time: 15:42 Progress Note Patient seen and evaluated, will obtain CT, labs and continue her normal saline infusion. 1615 CT negative for acute findings. Patient denies any complaints of pain at this time. X-ray of the left knee showed no acute findings or fractures. 1700 patient SaO2 86 to 88% while asleep, will use oxygen at 1 to 2 L per nasal cannula to maintain 92% or greater SaO2. Labs all essentially normal. 1730 SaO2 94% on 2 L per nasal cannula. Spoke with Dr. Grubbs, agreed with plans for admission. 1800 spoke with patient's son by phone, he will bring her CPAP and understands plan for admission. Initial ECG Impression Date: Sep 05, 2020 Initial ECG Impression Time: 15:54 Initial ECG Rate: 93 Initial ECG Rhythm: Normal Sinus Initial ECG Intervals: Normal Initial ECG Intervals VA 173, QRSD 99, QT 370, QTc 461. [place] P 55, QRS -23, T 36. Initial ECG Impression: Normal Initial ECG Comparisson: Unchanged Diagnostic Imaging Diagonstic Imaging: CT Plain Films/CT/US/NM/MRI: head Comments NAME: ELENA GARCIA [facility] REC#: [id number] PT STATUS: REG ER : 1960 PHYSICIAN: TONIO ESCALERA ADMIT DATE: 09/05/20/ER Draft Date of Exam:09/05/20 CT HEAD WO-R/O STROKE EXAMINATION: CT head without contrast. TECHNIQUE: Multiple contiguous axial images were obtained through the brain without the use of intravenous contrast. All CT scans use one or more of the following dose optimizing techniques: automated exposure control, MA and/or KvP adjustment based on a patient size and exam type, or iterative reconstruction. HISTORY: Hit head two days ago. Difficulty speaking. COMPARISON: None available. FINDINGS: No large acute territorial ischemia, mass, or hemorrhage. No midline shift or mass effect. Decreased attenuation is seen in the periventricular and subcortical white matter. The ventricles and cortical sulci are mildly prominent. The basilar cisterns are patent and unremarkable. The orbits are normal. Paranasal sinuses are normal. Mastoid air cells are clear. No soft tissue abnormality is seen. No osseus lesions or fractures are seen. IMPRESSION: 1. No large acute territorial ischemia, mass, or hemorrhage. 2. Scattered chronic microvascular disease. 3. Mild parenchymal volume loss. Dictated on workstation # [id number] Dict: 09/05/20 1621 Trans: 09/05/20 1624 [facility] [id number] Interpreted by: DARCI GARCIA DO Electronically signed by: Reviewed: Reviewed by Me Diagonstic Imaging: Xray Plain Films/CT/US/NM/MRI: knee Comments NAME: ELENA GARCIA [facility] REC#: [id number] PT STATUS: REG ER : 1960 PHYSICIAN: TONIO ESCALERA ADMIT DATE: 09/05/20/ER Signed Date of Exam:09/05/20 KNEE, LEFT, 3 VIEWS Indication: Left knee pain 4 views of left knee shows narrowing of the medial tibiofemoral joint space. The medial space measures 3 mm in thickness versus the lateral compartment that measures 6 mm in thickness. There are some osteophytes forming at the margins of the articular surfaces in the medial compartment. IMPRESSION: Degenerative changes medial compartment of the left knee with osteophyte formation and mild joint space narrowing. There is no fracture, dislocation or acute abnormality seen. Dictated by: Dictated on workstation # [id number] Dict: 09/05/20 1626 Trans: 09/05/20 1627 [id number] Interpreted by: STEF CLEMONS MD Electronically signed by: STEF CLEMONS MD 09/05/201626 Reviewed: Reviewed by Me Departure Impression Primary Impression: Falls Qualified Codes: W19.XXXA - Unspecified fall, initial encounter Additional Impressions: Altered mental state Qualified Codes: R41.82 - Altered mental status, unspecified Narcolepsy Qualified Codes: G47.429 - Narcolepsy in conditions classified elsewhere without cataplexy Bed bug bite Qualified Codes: W57.XXXA - Bitten or stung by nonvenomous insect and other nonvenomous arthropods, initial encounter Disposition: ADMITTED INPATIENT Condition: Stable Admissions Decision to Admit Reason: Admit from ER (General) Decision to Admit/Date: Sep 05, 2020 Time/Decision to Admit Time: 17:30 Departure-Patient Inst. Referrals: NO,LOCAL PHYSICIAN (PCP/Family) Primary Care Physician TONIO ESCALERA Sep 05, 2020 16:11
[2020-09-05 16:12] LABS: ALBUMIN 4.1 GM/DL (3.2-4.5); CHLORIDE 101 MMOL/L (98-107); POTASSIUM 4.6 MMOL/L (3.6-5.0); SODIUM 140 MMOL/L (135-145)
[2020-09-05 16:13] LABS: CALCIUM 9.8 MG/DL (8.5-10.1)
[2020-09-05 16:14] LABS: GLUCOSE 121 MG/DL (70-105); TOTAL PROTEIN 7.5 GM/DL (6.4-8.2)
[2020-09-05 16:15] LABS: INR 0.8 (0.8-1.4); PROTHROMBIN TIME PATIENT 11.8 SEC (12.2-14.7)
[2020-09-05 16:16] LABS: BILIRUBIN,TOTAL 0.2 MG/DL (0.1-1.0); CARBON DIOXIDE 26 MMOL/L (21-32)
[2020-09-05 16:18] LABS: ALKALINE PHOSPHATASE 78 U/L (40-136); CREATININE SERUM 1.89 MG/DL (0.60-1.30); GFR ESTIMATED 27
[2020-09-05 16:19] LABS: BUN/CREATININE RATIO 11
[2020-09-05 16:21] LABS: ALANINE AMINOTRANSFERASE 39 U/L (0-55)
--- NOTE | 2020-09-05 16:24 | Diagnostic Imaging Report ---
EXAMINATION: CT head without contrast. TECHNIQUE: Multiple contiguous axial images were obtained through the brain without the use of intravenous contrast. All CT scans use one or more of the following dose optimizing techniques: automated exposure control, MA and/or KvP adjustment based on a patient size and exam type, or iterative reconstruction. HISTORY: Hit head two days ago. Difficulty speaking. COMPARISON: None available. FINDINGS: No large acute territorial ischemia, mass, or hemorrhage. No midline shift or mass effect. Decreased attenuation is seen in the periventricular and subcortical white matter. The ventricles and cortical sulci are mildly prominent. The basilar cisterns are patent and unremarkable. The orbits are normal. Paranasal sinuses are normal. Mastoid air cells are clear. No soft tissue abnormality is seen. No osseus lesions or fractures are seen. IMPRESSION: 1. No large acute territorial ischemia, mass, or hemorrhage. 2. Scattered chronic microvascular disease. 3. Mild parenchymal volume loss. Dictated by: Dictated on workstation # [id number]
--- NOTE | 2020-09-05 16:28 | Diagnostic Imaging Report ---
Indication: Left knee pain 4 views of left knee shows narrowing of the medial tibiofemoral joint space. The medial space measures 3 mm in thickness versus the lateral compartment that measures 6 mm in thickness. There are some osteophytes forming at the margins of the articular surfaces in the medial compartment. IMPRESSION: Degenerative changes medial compartment of the left knee with osteophyte formation and mild joint space narrowing. There is no fracture, dislocation or acute abnormality seen. Dictated by: Dictated on workstation # [id number]
[2020-09-05 17:05] LABS: BILIRUBIN,URINE NEGATIVE (NEGATIVE); CLARITY,URINE CLEAR; COLOR,URINE YELLOW; GLUCOSE, URINE (UA) NEGATIVE (NEGATIVE); KETONES,URINE NEGATIVE (NEGATIVE); LEUKOCYTE ESTERASE ,URINE NEGATIVE (NEGATIVE); NITRITE,URINE NEGATIVE (NEGATIVE); PH,URINE 5.5 (5-9); PROTEIN,URINE TRACE (NEGATIVE)
[2020-09-05 17:14] LABS: BACTERIA,URINE NEGATIVE /HPF
[2020-09-05 20:00] VITALS: BP 162/95
[2020-09-05] MEDS ORDERED: CATHETER FLUSH 10 ML SYR IV PRN (20:00)
[2020-09-05] MEDS ORDERED: ACETAMINOPHEN 325 MG TABLET PO PRN (20:00)
[2020-09-05] MEDS ORDERED: ONDANSETRON 4 MG/2 ML (SDV) Z0FRAN IV PRN (20:00)
[2020-09-05] MEDS: D5 1/2 NS 1000 ML IV SOLUTION 1,000 ML IV SCH (20:26)
[2020-09-06] VITALS: BP 158/84
[2020-09-06 04:00] VITALS: BP 198/93
[2020-09-06 06:37] LABS: BASOPHILS % (AUTO) 1 % (0-10); EOSINOPHILS # (AUTO) 0.4 10^3/uL (0.0-0.3); EOSINOPHILS % (AUTO) 6 % (0-10); HEMATOCRIT 38 % (35-52); HEMOGLOBIN 11.4 g/dL (11.5-16.0); LYMPHOCYTES # (AUTO) 1.3 10^3/uL (1.0-4.0); LYMPHOCYTES % (AUTO) 20 % (12-44); MEAN CORPUSCULAR HEMOGLOBIN 27 pg (25-34); MEAN CORPUSCULAR HGB CONC 30 g/dL (32-36); MEAN CORPUSCULAR VOLUME 89 fL (80-99); MEAN PLATELET VOLUME 9.2 fL (9.0-12.2); MONOCYTES # (AUTO) 0.4 10^3/uL (0.0-1.0); MONOCYTES % (AUTO) 6 % (0-12); NEUTROPHILS # (AUTO) 4.2 10^3/uL (1.8-7.8); NEUTROPHILS % (AUTO) 67 % (42-75); PLATELET COUNT 326 10^3/uL (130-400); WHITE BLOOD COUNT 6.3 10^3/uL (4.3-11.0)
[2020-09-06 06:50] LABS: ALBUMIN 3.7 GM/DL (3.2-4.5); POTASSIUM 4.2 MMOL/L (3.6-5.0)
[2020-09-06 06:51] LABS: CALCIUM 9.6 MG/DL (8.5-10.1)
[2020-09-06 06:53] LABS: TOTAL PROTEIN 6.8 GM/DL (6.4-8.2)
[2020-09-06 06:55] LABS: BILIRUBIN,TOTAL 0.3 MG/DL (0.1-1.0)
[2020-09-06 06:56] LABS: CREATININE SERUM 1.71 MG/DL (0.60-1.30)
[2020-09-06] MEDS ORDERED: hydrALAZINE (APESOLINE) 20 MG/ML VIAL IV PRN (08:00)
[2020-09-06 08:30] VITALS: BP 175/81
[2020-09-06] MEDS ORDERED: amLODIPine 10 MG (NORVASC) TAB PO SCH (09:00)
[2020-09-06] MEDS ORDERED: LOSARTAN 50 MG (COZAAR) TAB PO SCH (09:00)
[2020-09-06] MEDS: inSUlin ASPART (NovoLOG) 1 UNIT/0.01 ML (CHARGE PER UNIT) SC SCH ×4 (09:02→13:40)
[2020-09-06] MEDS: D5 1/2 NS 1000 ML IV SOLUTION 1,000 ML IV SCH (09:39)
--- NOTE | 2020-09-06 11:48 | Physical Therapy Evaluation ---
PT Evaluation-General Medical Diagnosis Admission Date Sep 05, 2020 at 18:00 Medical Diagnosis: AMS/bed bugs/falls Onset Date: Sep 05, 2020 Therapy Diagnosis Therapy Diagnosis: debility Height/Weight Height (Feet): 5 Height (Inches): 6 Weight (Pounds): 225 Precautions Precautions/Isolations: Contact Isolation, Fall Prevention Referral Physician: Isabella Reason for Referral: Evaluation/Treatment Medical History Pertinent Medical History: DM, HTN, Neuropathy Additional Medical History narcolepsy Current History EMS secondary to falls Reviewed History: Yes Social History Home: Single Level Current Living Status: Other Family Entry Into Home: Ramp Prior Prior Level of Function SCALE: Activities may be completed with or without assistive devices. 9-Xbdjfpvoef-riujcfo completes the activity by him/herself with no assistance from a helper. 5-Set-up or Clean-up Assistance-helper sets up or cleans up; patient completes activity. [place] assists only prior to or following the activity. 4-Supervision or Touching Assistance-helper provides verbal cues and/or touching/steadying and/or contact guard assistance as patient completes activity. Assistance may be provided throughout the activity or intermittently. 3-Partial/Moderate Assistance-helper does LESS THAN HALF the effort. [place] lifts, holds or supports trunk or limbs, but provides less than half the effort. 2-Substantial/Maximal Assistance-helper does MORE THAN HALF the effort. [place] lifts or holds trunk or limbs and provides more than half the effort. 3-Ifrlkeeeo-dczdgb does ALL the effort. Patient does none of the effort to complete the activity. Or, the assistance of 2 or more helpers is required for the patient to complete the activity. If activity was not attempted, code reason: 7-Patient Refused. 9-Not Applicable-not attempted and the patient did not perform the activity before the current illness, exacerbation or injury. 10-Not Attempted due to Environmental Limitations-(lack of equipment, weather restraints, etc.). 88-Not Attempted due to Medical Conditions or Safety Concerns. Bed Mobility: 6 Transfers (B,C,W/C): 6 Gait: 6 Indoor Mobility (Ambulation): Independent (furniture walks) Prior Devices Use: None PT Evaluation-Current Subjective Patient agrees to PT. Patient is very talkative and requires redirection to remain on task. Pain Numeric Pain Scale: 0-No Pain Objective Patient Orientation: Normal For Age Attachments: IV ROM/Strength ROM Lower Extremities bilateral LE WFL Strength Lower Extremities 4-/5 grossly bilateral LE Integumentary/Posture Integumentary refer to nursing notes Bowel Incontinence: No Bladder Incontinence: No Posture WFL Neuromuscular (Tone, Coordination, Reflexes) grossly intact Sensory Vision: Functional Hearing: Functional Sensation Right Lower Extremit: Impaired Sensation Left Lower Extremity: Impaired Transfers Roll Left to Right (QC): 6 Sit to Lying (QC): 6 Lying to Sitting/Side of Bed(Q: 6 Sit to Stand (QC): 4 Chair/Evf-mv-Hxglo Xfer(QC): 4 Gait Does the Patient Walk?: Yes Mode of Locomotion: Walk Anticipated Mode of Locomotion: Walk Walk 10 feet (QC): 4 Walk 50 ft with 2 Turns(QC): 4 Walk 150 ft (QC): 4 Distance: 150' SBA in room Gait Assistive Device: FWW Comments/Gait Description functional gait sequence and is able to safely negotiate turns without difficulty Balance Sitting Static: Normal Sitting Dynamic: Normal Standing Static: Good Standing Dynamic: Good Assessment/Needs 60 y.o. female, will be seen short term by skilled PT to address functional mobility to ensure safe return to home. Rehab Potential: Fair PT Short Term Goals Short Term Goals Time Frame: Sep 08, 2020 Roll Left & Right: 6 Sit to lyin Lying to sitting on side of be: 6 Sit to stand: 5 Chair/nhi-nz-dhtdd transfer: 5 Toilet transfer: 5 Walk 10 feet: 5 Walk 50 feet with two turns: 5 Walk 150 feet: 5 PT Plan Problem List Problem List: Safety Treatment/Plan Treatment Plan: Continue Plan of Care Treatment Plan: Education, Functional Activity Mnih, Functional Strength, Gait, Safety, Therapeutic Exercise Treatment Duration: Sep 08, 2020 Frequency: 3 times per week Estimated Hrs Per Day: .25 hour per day Patient and/or Family Agrees t: Yes Time/GCodes Time In: 1110 Time Out: 1122 Total Billed Treatment Time: 12 Total Billed Treatment 1 visit EVModC 12 min CRYS GARCIA PT Sep 06, 2020 11:48
--- NOTE | 2020-09-06 11:53 | Short Stay Summary-Hospitalist ---
History of Present Illness HPI/Chief Complaint Elba Dutta is a 60-year-old female with past medical history of hypertension, type 2 diabetes mellitus, hypothyroidism, hyperlipidemia, obstructive sleep apnea on CPAP, narcolepsy, who presented with weakness and falls. Her work-up was unrevealing for a cause of her weakness. She has chronic kidney disease. There is no evidence of a urinary tract infection. Her CT head imaging showed no acute intracranial abnormalities. She had an x-ray of her knee which showed arthritis. She stated that her house is being treated for bedbugs. Social work was consulted and assisted with her care. She denied home health care on discharge. Source: patient Exam Limitations: no limitations Date Seen 09/06/20 Time Seen by a Provider: 10:15 Attending Physician Sharyn Grubbs MD PCP No,Local Physician Referring Physician Date of Admission Sep 05, 2020 at 18:00 Home Medications & Allergies Home Medications Reviewed patient Home Medication Reconciliation performed by pharmacy medication reconciliations glass technician/installer and/or nursing. Patients Allergies have been reviewed. Allergies Allergies Coded Allergies aspirin (Verified Allergy, Unknown, 05/09/15) codeine (Verified Allergy, Unknown, 05/09/15) Past Bsgcapj-Chhzlg-Sgekvk Hx Past Med/Social Hx: Reviewed Nursing Past Med/Soc Hx Patient Social History Alcohol Use: Denies Use Recreational Drug Use: No Smoking Status: Former Smoker 2nd Hand Smoke Exposure: No Recent Foreign Travel: No Contact w/other who traveled: No Recent Hopitalizations: No Recent Infectious Disease Expo: No Immunizations Up To Date Tetanus Booster (TDap): Less than 5yrs Pediatric: Yes Date of Influenza Vaccine: Feb 22, 2015 Seasonal Allergies Seasonal Allergies: Yes Past Medical History Surgeries: Abdominal Cardiac: Hypertension Neurological: Neuropathy Reproductive: Yes (UTERINE FIBROID) Menopausal Gastrointestinal: Gastroesophageal Reflux Musculoskeletal: Degenerate Disk Disease, Chronic Back Pain Endocrine: Diabetes, Non-Insulin dep Psychosocial: Anxiety History of Blood Disorders: No Family History Diabetes mellitus 19 MOTHER FH: skin cancer 19 MOTHER Review of Systems Constitutional: weakness EENTM: no symptoms reported Respiratory: no symptoms reported Cardiovascular: no symptoms reported Gastrointestinal: no symptoms reported Genitourinary: no symptoms reported Musculoskeletal: joint pain Skin: no symptoms reported Psychiatric/Neurological: No Symptoms Reported Physical Exam Physical Exam Vital Signs Vital Signs - First Documented 09/05/20 09/05/20 15:49 19:27 Temp 36.6 Pulse 92 Resp 16 B/P (MAP) 138/105 (116) Pulse Ox 96 O2 Delivery Room Air O2 Flow Rate 3.00 Capillary Refill : Less Than 3 Seconds Height, Weight, BMI Height: 5'6" Weight: 225lbs. oz. 102.297952gb; 35.49 BMI Method: General Appearance: No Apparent Distress, Chronically ill, Obese, Other (Unkempt) HEENT: PERRL/EOMI, Pharynx Normal Neck: Normal Inspection, Supple Respiratory: Lungs Clear, Normal Breath Sounds, No Respiratory Distress Cardiovascular: Regular Rate, Rhythm, No Edema, No Murmur Gastrointestinal: Normal Bowel Sounds, Non Tender, Soft Extremity: Normal Inspection, Non Tender, No Pedal Edema Neurologic/Psychiatric: Alert, Oriented x3, No Motor/Sensory Deficits, Normal Mood/Affect Skin: Warm/Dry, Other (Excoriations) Results Results/Procedures Labs Patient resulted labs reviewed. Imaging: Reviewed Imaging Report Short Stay Diagnosis Discharge Diagnosis-Short Stay Admission Diagnosis Falls Final Discharge Diagnosis Weakness and falls Conclusion Plan Order given for walker Offered home health care, patient denied Follow-up with your primary care physician Diagnosis/Problems Diagnosis/Problems (1) Falls Status: Acute Qualifiers: Qualified Codes: W19.XXXA - Unspecified fall, initial encounter (2) Weakness Status: Acute (3) Debility Status: Acute (4) Failure to thrive in adult Status: Acute (5) Bed bug bite Status: Acute Qualifiers: Qualified Codes: W57.XXXA - Bitten or stung by nonvenomous insect and other nonvenomous arthropods, initial encounter SHARYN GRUBBS MD Sep 06, 2020 11:53
[2020-09-06 12:10] VITALS: BP 164/79
[2020-09-06 14:13] VITALS: BP 164/79
== END 2020-09-06 14:14 | disposition home or self-care (01) ==
LOC: EDUNIT# 15:49 → ER 15:53 → 4TH 18:00
PROVIDERS: ADMIT Internal Medicine; ATTEND Internal Medicine
DX: R53.1 Weakness (principal); R53.81 Other malaise; R62.7 Adult failure to thrive; I10 Essential (primary) hypertension; E03.9 Hypothyroidism, unspecified; G47.33 Obstructive sleep apnea (adult) (pediatric); E78.5 Hyperlipidemia, unspecified; K21.9 Gastro-esophageal reflux disease without esophagitis; F41.9 Anxiety disorder, unspecified; G89.29 Other chronic pain; M54.9 Dorsalgia, unspecified; E11.40 Type 2 diabetes mellitus with diabetic neuropathy, unspecified; J45.909 Unspecified asthma, uncomplicated; R41.82 Altered mental status, unspecified; G47.429 Narcolepsy in conditions classified elsewhere without cataplexy; W19.XXXA Unspecified fall, initial encounter; W57.XXXA Bitten or stung by nonvenomous insect and other nonvenomous arthropods, initial encounter; Z79.82 Long term (current) use of aspirin; Z79.4 Long term (current) use of insulin; Z79.51 Long term (current) use of inhaled steroids; Z79.899 Other long term (current) drug therapy; Z88.5 Allergy status to narcotic agent; Z87.891 Personal history of nicotine dependence; Z79.890 Hormone replacement therapy; Z80.8 Family history of malignant neoplasm of other organs or systems
CPT/HCPCS: 36410; 70450; 73562; 76937; 80053 ×2; 81000; 82962 ×2; 83880; 84484; 85025 ×2; 85610; 85730; 86141; 93005; 94760; 97162; 99283; C1751; G0378; 36415

== ENCOUNTER → 2021-05-16 | Outpatient (CLI) | payer MEDICAID | LOC: CARD 11:00 | PROVIDERS: ATTEND Physician Assistant | DX: I11.9 Hypertensive heart disease without heart failure (principal); I35.0 Nonrheumatic aortic (valve) stenosis | CPT/HCPCS: 93306 ==

== ENCOUNTER 2021-09-02 01:52 | Inpatient (IN) | payer MEDICAID ==
[~2021-09-02] VITALS: Ht 167.7 cm; Wt 93.5 kg
[2021-09-02] MEDS ORDERED: D5 1/2 NS 1000 ML IV SOLUTION 1,000 ML IV SCH (02:00)
[2021-09-02] MEDS ORDERED: DEXTROSE 50% 50 ML (IMS) SYR IV ONE (02:00)
--- NOTE | 2021-09-02 02:00 | ED General ---
General Stated Complaint: LOW BLOOD SUGAR Source of Information: Patient, EMS History of Present Illness Date Seen by Provider: Sep 02, 2021 Time Seen by Provider: 01:55 Initial Comments PT ARRIVES VIA EMS FROM HOME FAMILY MEMBER CALLED FOR PT UNRESPONSIVE AND LOW BLOOD SUGAR BLOOD SUGAR WAS 39 WHEN EMS ARRIVED, AND PT WAS UNRESPONSIVE AND PROFUSELY DIAPHORETIC EMS GAVE GLUCAGON AND ORAL GLUCOSE AND PEANUT BUTTER EMS RECHECKED BLOOD SUGAR AND IT WAS 310--NO IV ACCESS ATTEMPT BY EMS PT'S EX NORMALLY GIVES HER INSULIN TO HER, BUT MARTA HE WAS "TOO TIRED" --HE DOES NOT LIVE WITH PT, BUT IS THERE ALL THE TIME EVERY DAY, PER PT. PT'S SON LIVES WITH HER. MARTA, PT'S SON GAVE HER INSULIN TO HER--EMS REPORT THAT SON ADMITTED THAT HE DID NOT KNOW HOW MUCH TO GIVE HER AND HAS NO IDEA HOW MUCH HE GAVE HER, OR WHAT KIND OF INSULIN HE GAVE HER, AND DID NOT KNOW HOW TO EVEN READ THE INSULIN SYRINGE AND DID NOT KNOW WHERE HE PUT THE SYRINGE AFTERWARD. IT IS NOT KNOWN IF PT'S BLOOD GLUCOSE WAS CHECKED BEFORE THE INSULIN WAS GIVEN AND IS NOT KNOWN WHAT TIME THE INSULIN WAS GIVEN ON ARRIVAL, PT IS AWAKE, ALERT, TALKING NON-STOP AND LAUGHING INTERMITTENTLY--ABOUT EVERYTHING EXCEPT WHY SHE IS HERE--TALKING ABOUT HER 6 CATS, SOMEONE WHO HAD A BABY THAT WEIGHED 11 1/2 LBS, AND ON AND ON AND ON....ETC. --PT IS ABLE TO ANSWER ALL QUESTIONS APPROPRIATELY AND DOES NOT APPEAR CONFUSED, BUT CANNOT RECALL EVENTS PRIOR TO ARRIVAL. SPEECH IS VERY THICK TONGUED, BUT IS TALKING RAPIDLY AND AT LENGTH. PT STATES SHE FEELS FINE AND HAS NO COMPLAINTS. PT IS WANTING WATER SHE IS BEING WHEELED INTO ER FROM THE AMBULANCE. EMS REPORT THAT HOUSE IS IN DEPLORABLE CONDITION. PCP. DR. GARCIA IN [place] Allergies and Home Medications Allergies Coded Allergies: aspirin (Verified Allergy, Unknown, 05/09/15) codeine (Verified Allergy, Unknown, 05/09/15) Patient Home Medication List Home Medication List Reviewed: Yes Albuterol Sulfate (Proair Hfa) 8.5 Gm Hfa.aer.ad, 2 PUFF PO QID PRN for SHORTNESS OF BREATH, (Reported) Entered as Reported by: OBDULIA CREWS on 05/09/151835 Alprazolam (Alprazolam) 1 Mg Tablet, 1 MG PO HS, (Reported) Entered as Reported by: OBDULIA CREWS on 05/09/151835 Aspirin (Aspirin EC) 81 Mg Tablet.dr, 81 MG PO DAILY, (Reported) Entered as Reported by: TAMMY ADAME on 10/28/191154 Atorvastatin Calcium (Atorvastatin Calcium) 20 Mg Tablet, 20 MG PO HS, (Reported) Entered as Reported by: OBDULIA CREWS on 05/09/151835 Furosemide (Furosemide) 40 Mg Tablet, 40 MG PO DAILY, (Reported) Entered as Reported by: OBDULIA CREWS on 05/09/151835 Glipizide (Glipizide) 10 Mg Tablet, 20 MG PO BID, (Reported) Entered as Reported by: OBDULIA CREWS on 05/09/151835 Hydrocodone/Acetaminophen (Hydrocodone-Acetamin 7.5-325) 1 Each Tablet, 1 TAB PO Q6- 8H PRN for PAIN-MODERATE (5-7), (Reported) Entered as Reported by: TAMMY ADAME on 10/28/191153 Hydroxyzine HCl (Hydroxyzine HCl) 25 Mg Tablet, 25 MG PO DAILY PRN for ITCHING, (Reported) Entered as Reported by: OBDULIA CREWS on 05/09/151835 Insulin Glargine,Hum.rec.anlog (Lantus Solostar) 100 Unit/1 Ml Insuln.pen, 20 UNITS SC DAILY, (Reported) Entered as Reported by: TAMMY ADAME on 10/28/191153 Insulin Glargine,Hum.rec.anlog (Lantus Solostar) 100 Unit/1 Ml Insuln.pen, 13 UNIT SQ HS, (Reported) Entered as Reported by: TAMMY ADAME on 10/28/191153 Insulin Lispro (Humalog) 100 Unit/1 Ml Vial, 10 UNITS SC TIDWM, (Reported) Entered as Reported by: TAMMY AADME on 10/28/191153 Levothyroxine Sodium (Levothyroxine Sodium) 112 Mcg Tablet, 112 MCG PO DAILY, (Reported) Entered as Reported by: TAMMY ADAME on 10/28/191153 Loratadine (Loratadine) 10 Mg Tablet, 10 MG PO DAILY, (Reported) Entered as Reported by: OBDULIA CREWS on 05/09/151835 Losartan Potassium (Losartan Potassium) 25 Mg Tablet, 25 MG PO DAILY Prescribed by: GUMARO GRUBBS on 10/31/19 0950 Melatonin (Melatonin) 5 Mg Tablet, 5 MG PO HS, (Reported) Entered as Reported by: TAMMY ADAME on 10/28/19 115 Metformin HCl (Metformin HCl) 1,000 Mg Tablet, 1,000 MG PO BID, (Reported) Entered as Reported by: OBDULIA CREWS on 05/09/151835 Methocarbamol (Methocarbamol) 500 Mg Tablet, 750 MG PO DAILY, (Reported) Entered as Reported by: TAMMY ADAME on 10/28/19 115 Metoprolol Succinate (Metoprolol Succinate) 25 Mg Tab.er.24h, 25 MG PO DAILY Prescribed by: GUMARO GRUBBS on 10/31/19 0950 Nortriptyline HCl (Nortriptyline HCl) 50 Mg Capsule, 50 MG PO BID, (Reported) Entered as Reported by: OBDULIA CREWS on 05/09/151835 Omeprazole (Omeprazole) 20 Mg Capsule.dr, 20 MG PO HS, (Reported) Entered as Reported by: OBDULIA CREWS on 05/09/151835 Saxagliptin HCl (Onglyza) 2.5 Mg Tablet, 2.5 MG PO HS, (Reported) Entered as Reported by: TAMMY ADAME on 10/28/19 115 Sumatriptan Succinate (Sumatriptan Succinate) 100 Mg Tablet, 100 MG PO DAILY PRN for MIGRAINE, (Reported) Entered as Reported by: OBDULIA CREWS on 05/09/151835 Review of Systems Review of Systems Constitutional: other (PER HPI) Respiratory: no symptoms reported Cardiovascular: no symptoms reported Gastrointestinal: no symptoms reported Genitourinary: no symptoms reported Musculoskeletal: no symptoms reported Skin: no symptoms reported Hematologic/Lymphatic: No Symptoms Reported Immunological/Allergic: no symptoms reported Past Uzzwkyc-Unzxga-Wjrxok Hx Patient Social History Tobacco Use?: Yes Smoking Status: Former Smoker Substance use?: No Alcohol Use?: No Immunizations Up To Date Tetanus Booster (TDap): Less than 5yrs PED Vaccines UTD: Yes Seasonal Allergies Seasonal Allergies: Yes Past Medical History Surgeries: Yes Abdominal, Appendectomy, Section, Gallbladder, Hysterectomy, Oophorectomy, Orthopedic, Tubal Ligation Respiratory: Yes Asthma, Sleep Apnea Currently Using CPAP: No Cardiac: Yes (CHF) High Cholesterol, Hypertension Neurological: Yes Headaches /Migraines, Neuropathy Reproductive Disorders: Yes (UTERINE FIBROID) 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 History: Hysterectomy, Menopausal Genitourinary: Yes Bladder Infection Gastrointestinal: Yes Gastroesophageal Reflux Musculoskeletal: Yes (CHRONIC KNEE PAIN; RESTLESS LEG SYNDROME; FREQUENT FALLS;CHRONIC OPIATE USE) Degenerate Disk Disease, Arthritis, Chronic Back Pain Endocrine: Yes (OBESITY) Diabetes, Insulin dep, Hypothyroidsim HEENT: Yes (POOR DENTITION) Cancer: No Psychosocial: Yes Sleep Difficulties, Anxiety Integumentary: Yes Psoriasis Blood Disorders: No Family Medical History Diabetes mellitus 19 MOTHER FH: skin cancer 19 MOTHER SOCIAL HISTORY: -SMOKED 1/2 PPD, QUIT 1989 -RARE ETOH -DENIES DRUG USE PAST SURGICAL HISTORY: -C-SECTIONS X 3 -BILATERAL TUBAL LIGATION -APPENDECTOMY -CHOLECYSTECTOMY -HYSTERECTOMY/BILATERAL SALPINGO-OOPHORECTOMY -RIGHT CARPAL TUNNEL -EGD/COLONOSCOPY Physical Exam Vital Signs Capillary Refill : Height, Weight, BMI Height: 5'6" Weight: 225lbs. oz. 102.308221rn; 35.49 BMI Method: General Appearance: No Apparent Distress, WD/WN, Obese, Other (FILTHY, MALODOROUS, COVERED IN ANIMAL HAIR, AND UNIDENTIFIED DEBRIS. EXTREMELY POOR HYGIENE. PT'S CLOTHING IS COMPLETELY SATURATED AND SKIN IS MOIST AND COOL ON ARRIVAL. PT IS AWAKE AND TALKING RAPIDLY AND NON-STOP WITH THICK-TONGUED/MUMBLED SPEECH. 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 MOIST. EXTENSIVE SORES/SCARS/SCABS TO FACE AND ARMS, ALONG WITH MULTIPLE SCRATCHES TO ARMS--PT STATES IS FROM HER CATS. ALSO HAS EXTENSIVE PSORIATIC PLAQUES TO ARMS, AND TO A LESSER DEGREE ON LEGS AND TRUNK . ) Progress/Results/Core Measures Suspected Sepsis SIRS Temperature: Pulse: Respiratory Rate: Laboratory Tests 09/02/21 03:00: White Blood Count 17.7H Blood Pressure / Mean: Laboratory Tests 09/02/21 03:00: Creatinine 2.22H, Platelet Count 352, Total Bilirubin 0.3 Results/Orders Lab Results Laboratory Tests Test 09/02/21 01:57 09/02/21 02:35 09/02/21 02:38 09/02/21 03:00 Range/Units Glucometer 27 *L 122 H 70-110 MG/DL Urine Color YELLOW Urine Clarity SL CLOUDY Urine pH 6.0 5-9 Urine Specific [place] 1.010 L 1.016-1.022 Urine Protein 1+ H NEGATIVE Urine Glucose (UA) 1+ H NEGATIVE Urine Ketones NEGATIVE NEGATIVE Urine Nitrite NEGATIVE NEGATIVE Urine Bilirubin NEGATIVE NEGATIVE Urine Urobilinogen 0.2 < = 1.0 MG/DL Urine Leukocyte Esterase NEGATIVE NEGATIVE Urine RBC (Auto) 1+ H NEGATIVE Urine RBC 2-5 H /HPF Urine WBC 0-2 /HPF Urine Squamous Epithelial Cells 0-2 /HPF Urine Crystals NONE /LPF Urine Bacteria TRACE /HPF Urine Casts NONE /LPF Urine Mucus NEGATIVE /LPF Urine Culture Indicated NO Urine Opiates Screen POSITIVE H NEGATIVE Urine Oxycodone Screen NEGATIVE NEGATIVE Urine Methadone Screen NEGATIVE NEGATIVE Urine Propoxyphene Screen NEGATIVE NEGATIVE Urine Barbiturates Screen NEGATIVE NEGATIVE Ur Tricyclic Antidepressants Screen POSITIVE H NEGATIVE Urine Phencyclidine Screen NEGATIVE NEGATIVE Urine Amphetamines Screen NEGATIVE NEGATIVE Urine Methamphetamines Screen NEGATIVE NEGATIVE Urine Benzodiazepines Screen NEGATIVE NEGATIVE Urine Cocaine Screen NEGATIVE NEGATIVE Urine Cannabinoids Screen NEGATIVE NEGATIVE White Blood Count 17.7 H 4.3-11.0 10^3/uL Red Blood Count 4.58 3.80-5.11 10^6/uL Hemoglobin 11.1 L 11.5-16.0 g/dL Hematocrit 38 35-52 % Mean Corpuscular Volume 82 80-99 fL Mean Corpuscular Hemoglobin 24 L 25-34 pg Mean Corpuscular Hemoglobin Concent 30 L 32-36 g/dL Red Cell Distribution Width 15.7 H 10.0-14.5 % Platelet Count 352 130-400 10^3/uL Mean Platelet Volume 9.9 9.0-12.2 fL Immature Granulocyte % (Auto) 1 % Neutrophils (%) (Auto) 85 H 42-75 % Lymphocytes (%) (Auto) 9 L 12-44 % Monocytes (%) (Auto) 4 0-12 % Eosinophils (%) (Auto) 1 0-10 % Basophils (%) (Auto) 0 0-10 % Neutrophils # (Auto) 15.1 H 1.8-7.8 10^3/uL Lymphocytes # (Auto) 1.6 1.0-4.0 10^3/uL Monocytes # (Auto) 0.7 0.0-1.0 10^3/uL Eosinophils # (Auto) 0.1 0.0-0.3 10^3/uL Basophils # (Auto) 0.1 0.0-0.1 10^3/uL Immature Granulocyte # (Auto) 0.1 0.0-0.1 10^3/uL Neutrophils % (Manual) 83 % Lymphocytes % (Manual) 14 % Monocytes % (Manual) 3 % Hypochromasia SLIGHT Basophilic Stippling MODERATE Sodium Level 141 135-145 MMOL/L Potassium Level 3.7 3.6-5.0 MMOL/L Chloride Level 103 98-107 MMOL/L Carbon Dioxide Level 21 21-32 MMOL/L Anion Gap 17 H 5-14 MMOL/L Blood Urea Nitrogen 32 H 7-18 MG/DL Creatinine 2.22 H 0.60-1.30 MG/DL Estimat Glomerular Filtration Rate 24 BUN/Creatinine Ratio 14 Glucose Level 70 70-105 MG/DL Calcium Level 9.9 8.5-10.1 MG/DL Corrected Calcium 10.1 8.5-10.1 MG/DL Magnesium Level 1.7 1.6-2.4 MG/DL Total Bilirubin 0.3 0.1-1.0 MG/DL Aspartate Amino Transf (AST/SGOT) 29 5-34 U/L Alanine Aminotransferase (ALT/SGPT) 34 0-55 U/L Alkaline Phosphatase 71 40-136 U/L Total Protein 6.7 6.4-8.2 GM/DL Albumin 3.8 3.2-4.5 GM/DL Lipase 217 H 8-78 U/L Serum Alcohol < 10 <10 MG/DL Test 09/02/21 03:08 09/02/21 03:41 Range/Units Glucometer 87 228 H 70-110 MG/DL My Orders Orders - KASSANDRA,SUSY K DO D50w (Emergency) Syringe (Dextrose 50% 5 (09/02/21 02:00) Accucheck Stat ONCE (09/02/21 01:58) Ed Iv/Invasive Line Start (09/02/21 01:58) Monitor-Rhythm Ecg Trace Only (09/02/21 01:58) Alcohol (09/02/21 01:58) Cbc With Automated Diff (09/02/21 01:58) Comprehensive Metabolic Panel (09/02/21 01:58) Drug Screen Stat (Urine) (09/02/21 01:58) Lipase (09/02/21 01:58) Magnesium (09/02/21 01:58) Ua Culture If Indicated (09/02/21 01:58) D5 1/2 Ns 1000 Ml Iv Solution (Dextrose (09/02/21 02:00) Catheter(Urinary) Insert & Ass 03,15 (09/02/21 02:33) Accucheck Stat ONCE (09/02/21 02:43) Manual Differential (09/02/21 03:00) Accucheck Stat ONCE (09/02/21 03:10) Dextrose 40% Oral Gel (Glutose 15 Oral (09/02/21 03:15) Medications Given in ED Current Medications Medications Dose Ordered Sig/Karthik Route Start Time Stop Time Status Last Admin Dose Admin Dextrose 50 ml ONCE ONCE IV 09/02/21 02:00 09/02/21 02:01 DC 09/02/21 03:36 50 ML Lidocaine HCl 5 ml STK-MED ONCE .ROUTE 09/02/21 03:45 09/02/21 03:48 DC 09/02/21 04:01 5 ML Vital Signs/I&O Capillary Refill : Progress Note : Progress Note ACCUCHECK 27 ON ARRIVAL HERE BUT PT IS AWAKE, ALERT, AND TALKING NON-STOP, DOES NOT APPEAR CONFUSED. REPEAT ACCUCHECK PRIOR TO MEDS OR IV FLUIDS GIVEN IS 122, PT REMAINS AWAKE AND ALERT AND TALKING NON-STOP REPEAT ACCUCHECK 87 AND PT IS SLEEPING BUT EASILY AWAKES EXTREMELY DIFFICULT TO OBTAIN IV ACCESS. GAVE D50 THEN IV INFILTRATED. I/O PLACED IN LEFT HUMERUS. REPEAT ACCUCHECK 228. PT SLEEPING SOUNDLY, BUT WAKES TO VERBAL STIMULI O2 SATS DROP TO UPPER 80'S WHEN SLEEPING, UP TO MID 90'S ON O2 AT 2L/NC. HAS HISTORY OF SLEEP APNEA AND HAS BEEN PRESCRIBED CPAP IN THE PAST REPEAT ACCUCHECK 148 REPEAT ACCUCHECK 142 JUST PRIOR TO BEING TRANSFERRED TO ICU Departure Communication (Admissions) 344--SPOKE WITH DR. CONNOLLY, HOSPITALIST, ACCEPTS PT FOR ADMIT. 351--REPORT TO DR. HADLEY, E=ICU PHYSICIAN. Impression Primary Impression: Hypoglycemia associated with type 2 diabetes mellitus Additional Impressions: Infestation by bed bug Leukocytosis POOR VASCULAR ACCESS Acute on chronic renal insufficiency Chronic prescription opiate use Disposition: ADMITTED INPATIENT Condition: Stable Admissions Decision to Admit Reason: Admit from ER (General) Decision to Admit/Date: Sep 02, 2021 Time/Decision to Admit Time: 03:45 Departure-Patient Inst. Referrals: NO,LOCAL PHYSICIAN (PCP/Family) Primary Care Physician SUSY CANNON DO Sep 02, 2021 02:00
[2021-09-02 02:48] LABS: BILIRUBIN,URINE NEGATIVE (NEGATIVE); CLARITY,URINE SL CLOUDY; COLOR,URINE YELLOW; GLUCOSE, URINE (UA) 1+ (NEGATIVE); KETONES,URINE NEGATIVE (NEGATIVE); LEUKOCYTE ESTERASE ,URINE NEGATIVE (NEGATIVE); NITRITE,URINE NEGATIVE (NEGATIVE); PROTEIN,URINE 1+ (NEGATIVE)
[2021-09-02 02:51] LABS: BACTERIA,URINE TRACE /HPF; SQUAMOUS EPITHELIAL CELL,UR 0-2 /HPF; WBC,URINE 0-2 /HPF
[2021-09-02 03:01] LABS: AMPHETAMINE SCREEN, URINE NEGATIVE (NEGATIVE); BARBITURATE SCREEN URINE NEGATIVE (NEGATIVE); BENZODIAZEPINES SCREEN URINE NEGATIVE (NEGATIVE); CANNABINOID SCREEN, URINE NEGATIVE (NEGATIVE); COCAINE SCREEN URINE NEGATIVE (NEGATIVE); METHADONE STAT NEGATIVE (NEGATIVE); METHAMPHETAMINE SCREEN URINE S NEGATIVE (NEGATIVE); OPIATE SCREEN URINE POSITIVE (NEGATIVE); OXYCODONE STAT NEGATIVE (NEGATIVE); PROPOXYPHENE STAT NEGATIVE (NEGATIVE); TRICYCLIC ANTIDEPRESSANTS SCRE POSITIVE (NEGATIVE)
[2021-09-02 03:09] LABS: BASOPHILS # (AUTO) 0.1 10^3/uL (0.0-0.1); BASOPHILS % (AUTO) 0 % (0-10); EOSINOPHILS # (AUTO) 0.1 10^3/uL (0.0-0.3); EOSINOPHILS % (AUTO) 1 % (0-10); HEMATOCRIT 38 % (35-52); HEMOGLOBIN 11.1 g/dL (11.5-16.0); LYMPHOCYTES # (AUTO) 1.6 10^3/uL (1.0-4.0); LYMPHOCYTES % (AUTO) 9 % (12-44); MEAN CORPUSCULAR HEMOGLOBIN 24 pg (25-34); MEAN CORPUSCULAR HGB CONC 30 g/dL (32-36); MEAN CORPUSCULAR VOLUME 82 fL (80-99); MEAN PLATELET VOLUME 9.9 fL (9.0-12.2); MONOCYTES # (AUTO) 0.7 10^3/uL (0.0-1.0); MONOCYTES % (AUTO) 4 % (0-12); NEUTROPHILS # (AUTO) 15.1 10^3/uL (1.8-7.8); NEUTROPHILS % (AUTO) 85 % (42-75); PLATELET COUNT 352 10^3/uL (130-400); WHITE BLOOD COUNT 17.7 10^3/uL (4.3-11.0)
[2021-09-02 03:15] LABS: ALBUMIN 3.8 GM/DL (3.2-4.5); CHLORIDE 103 MMOL/L (98-107); POTASSIUM 3.7 MMOL/L (3.6-5.0)
[2021-09-02] MEDS ORDERED: DEXTROSE 40% ORAL GEL TUBE PO PRN (03:15)
[2021-09-02 03:16] LABS: SODIUM 141 MMOL/L (135-145)
[2021-09-02 03:17] LABS: CALCIUM 9.9 MG/DL (8.5-10.1)
[2021-09-02 03:18] LABS: GLUCOSE 70 MG/DL (70-105); TOTAL PROTEIN 6.7 GM/DL (6.4-8.2)
[2021-09-02 03:19] LABS: CARBON DIOXIDE 21 MMOL/L (21-32)
[2021-09-02 03:20] LABS: BILIRUBIN,TOTAL 0.3 MG/DL (0.1-1.0)
[2021-09-02 03:21] LABS: ALKALINE PHOSPHATASE 71 U/L (40-136)
[2021-09-02 03:22] LABS: CREATININE SERUM 2.22 MG/DL (0.60-1.30); GFR ESTIMATED 24
[2021-09-02 03:23] LABS: BUN/CREATININE RATIO 14
[2021-09-02 03:24] LABS: MAGNESIUM 1.7 MG/DL (1.6-2.4)
[2021-09-02 03:25] LABS: ALANINE AMINOTRANSFERASE 34 U/L (0-55); LIPASE 217 U/L (8-78)
[2021-09-02] MEDS ORDERED: LIDOCAINE PF 2% 5 ML (XYLOCAINE) VIAL ONE (03:45)
[2021-09-02 03:46] LABS: LYMPHOCYTES % (MANUAL) 14 %; MONOCYTES % (MANUAL) 3 %; NEUTROPHILS % (MANUAL) 83 %
[2021-09-02 03:47] LABS: HYPOCHROMASIA SLIGHT
[2021-09-02] MEDS ORDERED: POTASSIUM CL 10MEQ/50ML IVPB 50 ML IV SCH (06:00)
[2021-09-02] MEDS ORDERED: KCL 20 MEQ TAB (K-DUR) PO SCH (06:00)
[2021-09-02] MEDS ORDERED: MAGNESIUM 1 GM/100 ML IVPB 100 ML IV SCH (06:00)
--- NOTE | 2021-09-02 06:03 | Tele-ICU Progress Note ---
Progress Note 51M nicotine dependence (2ppd), EtOH (4-6 beers/day), HTN, tachyarrythmia admitted for arrythmia. Initially admitted to [facility] 3-4 weeks ago with severe VAZQUEZ, L numbness and tingling. Stroke ruled out at that time. Sent to cardiology for follow up, stress test done 08/22/21, initially treadmill but converted to pharm for failure to reach target HR. No clinical, electrical or nuclear evidence of ischemia. Noted to have EF 41%. At that time, started on metoprolol and xarelto for suspected afib at that time and sent home with an external cardiac/vascular sonographer. Tonight around 1830 became symptomatic with SOB, diaphoresis, chest discomfort (not pain or pressure). Called by monitoring company and told he was having "fatal arrythmias" and instructed to go to ER. Dr Kelly also notified both before and after the patient's arrival. On arrival HR 180-200. Started on amiodarone immediately. - Arrythmia: on arrival to ICU, patient in sinus at 90, although does not appear to be normal sinus. More likely a wandering atrial pacemaker rhythm. Amio ongoing. Given lovenox (could not recall if taken xarelto today). - nicotine dependence: patch, prn gum - etoh: denies prior withdrawal. Monitor for signs of withdrawal syndrome. CIWA if necessary. Either way, thiamine, folate and multivitamin. Focused Exam Height, Weight, BMI Height: 5'6" Weight: 225lbs. oz. 102.625240wa; 34.00 BMI Method: TAINA HADLEY MD Sep 02, 2021 06:03
[2021-09-02 06:33] LABS: ABG BASE EXCESS 1.3 MMOL/L (-2.5-2.5); ABG OXYGEN SATURATION 99 % (94-100); ABG PCO2 55 MMHG (35-45); ABG PO2 126 MMHG (79-93); ABG TCO2 28.7 MMOL/L (21.0-31.0)
[2021-09-02 06:39] LABS: ABG PH 7.31 (7.37-7.43); ALLENS TEST YES-POS; INSPIRED O2 5L NC; VENTILATOR NO
[2021-09-02 06:40] LABS: PATIENT TEMP 36.8
[2021-09-02 07:33] VITALS: BP 185/97
[2021-09-02 10:25] VITALS: BP 128/79
--- NOTE | 2021-09-02 11:41 | Physical Therapy Evaluation ---
PT Evaluation-General Medical Diagnosis Admission Date Sep 02, 2021 at 03:45 Medical Diagnosis: hypoglycemia/IDDM Onset Date: Sep 02, 2021 Therapy Diagnosis Therapy Diagnosis: debility/weakness Height/Weight Height (Feet): 5 Height (Inches): 6 Weight (Pounds): 225 Precautions Precautions/Isolations: Contact Isolation Referral Physician: Isabella Reason for Referral: Evaluation/Treatment Medical History Pertinent Medical History: DM, HTN, Hypothroidism, Neuropathy Current History EMS secondary to patient found unresponsive with a BS of 39 Reviewed History: Yes Social History Home: Single Level Current Living Status: Other Family Prior Prior Level of Function SCALE: Activities may be completed with or without assistive devices. 4-Btmwafrmwj-pjsfrps completes the activity by him/herself with no assistance from a helper. 5-Set-up or Clean-up Assistance-helper sets up or cleans up; patient completes activity. Sterling assists only prior to or following the activity. 4-Supervision or Touching Assistance-helper provides verbal cues and/or touching/steadying and/or contact guard assistance as patient completes activity. Assistance may be provided throughout the activity or intermittently. 3-Partial/Moderate Assistance-helper does LESS THAN HALF the effort. Sterling lifts, holds or supports trunk or limbs, but provides less than half the effort. 2-Substantial/Maximal Assistance-helper does MORE THAN HALF the effort. [place] lifts or holds trunk or limbs and provides more than half the effort. 6-Diufduycc-agisnl does ALL the effort. Patient does none of the effort to complete the activity. Or, the assistance of 2 or more helpers is required for the patient to complete the activity. If activity was not attempted, code reason: 7-Patient Refused. 9-Not Applicable-not attempted and the patient did not perform the activity before the current illness, exacerbation or injury. 10-Not Attempted due to Environmental Limitations-(lack of equipment, weather restraints, etc.). 88-Not Attempted due to Medical Conditions or Safety Concerns. Bed Mobility: 6 Transfers (B,C,W/C): 6 Gait: 6 Stairs: 6 Indoor Mobility (Ambulation): Independent Stairs: Independent Prior Devices Use: None PT Evaluation-Current Subjective Patient is very talkative requiring redirection to remain on task. Objective Patient Orientation: Person, Time, Situation Attachments: Oxygen, Dugan Catheter, IV ROM/Strength ROM Lower Extremities bilateral LE WFL Strength Lower Extremities 4/5 grossly bilateral LE Integumentary/Posture Bladder Incontinence: Dugan Cath Posture WFL Neuromuscular (Tone, Coordination, Reflexes) grossly intact Sensory Vision: Functional Hearing: Functional Transfers Roll Left to Right (QC): 6 Lying to Sitting/Side of Bed(Q: 6 Sit to Stand (QC): 6 Chair/Rxj-vg-Ssnmi Xfer(QC): 6 Gait Does the Patient Walk?: Yes Mode of Locomotion: Walk Anticipated Mode of Locomotion: Walk Walk 10 feet (QC): 6 Gait Assistive Device: None Balance Sitting Static: Normal Sitting Dynamic: Normal Standing Static: Normal Standing Dynamic: Normal Assessment/Needs Patient is currently at independent PLOF with all gross motor skills and does not require skilled PT intervention. Rehab Potential: Fair PT Plan Treatment/Plan Treatment Plan: Discontinue PT Treatment Duration: Sep 02, 2021 Frequency: 1 time per week Estimated Hrs Per Day: .25 hour per day Patient and/or Family Agrees t: Yes Time/GCodes Time In: 1115 Time Out: 1129 Total Billed Treatment Time: 14 Total Billed Treatment 1 visit EVMod 14 min CRYS GARCIA PT Sep 02, 2021 11:41
--- NOTE | 2021-09-02 17:29 | Discharge Summary ---
Discharge Summary Hospital Course Was the Problem List Reviewed?: Yes Problems/Dx: (1) Hypoglycemia associated with type 2 diabetes mellitus Status: Acute Hospital Course Date of Admission: Sep 02, 2021 at 03:45 Admission Diagnosis : T2DM with hypoglycemia Family Physician/Provider: SharitaLocal Physician Date of Discharge: 09/02/21 Discharge Diagnosis: T2DM with hypoglycemia Hospital Course: Elba Dutta is a 61 year old female who was admitted with hypoglycemia. Her son reportedly accidentally gave her an unknown amount of insulin. She later became unresponsive and EMS was called. Her blood sugar was found to be in the 20s. She was given glucagon and dextrose in the field and her blood sugar improved. Her blood sugar was down to the 30s again by the time she arrived to the hospital. She was started on dextrose containing fluids. Her insulin was held. Her blood sugars improved and stabilized. She was instructed to discontinue Glipizide. She should continue her insulin regimen. She was given diabetes education prior to discharge. She should follow up with her PCP. Her course was complicated by bed bugs. She has a history of bed bugs which have been persistent despite efforts to treat them. Social work was consulted and assisted with her care. She was discharged home in stable condition. Labs and Pending Lab Test: Laboratory Tests 09/02/21 01:57: Glucometer 27*L 09/02/21 02:35: Urine Color YELLOW, Urine Clarity SL CLOUDY, Urine pH 6.0, Urine Specific [place] 1.010L, Urine Protein 1+H, Urine Glucose (UA) 1+H, Urine Ketones NEGATIVE, Urine Nitrite NEGATIVE, Urine Bilirubin NEGATIVE, Urine Urobilinogen 0.2, Urine Leukocyte Esterase NEGATIVE, Urine RBC (Auto) 1+H, Urine RBC 2-5H, Urine WBC 0-2, Urine Squamous Epithelial Cells 0-2, Urine Crystals NONE, Urine Bacteria TRACE, Urine Casts NONE, Urine Mucus NEGATIVE, Urine Culture Indicated NO, Urine Opiates Screen POSITIVEH, Urine Oxycodone Screen NEGATIVE, Urine Methadone Screen NEGATIVE, Urine Propoxyphene Screen NEGATIVE, Urine Barbiturates Screen NEGATIVE, Ur Tricyclic Antidepressants Screen POSITIVEH, Urine Phencyclidine Screen NEGATIVE, Urine Amphetamines Screen NEGATIVE, Urine Methamphetamines Screen NEGATIVE, Urine Benzodiazepines Screen NEGATIVE, Urine Cocaine Screen NEGATIVE, Urine Cannabinoids Screen NEGATIVE 09/02/21 02:38: Glucometer 122H 09/02/21 03:00: White Blood Count 17.7H, Red Blood Count 4.58, Hemoglobin 11.1L, Hematocrit 38, Mean Corpuscular Volume 82, Mean Corpuscular Hemoglobin 24L, Mean Corpuscular Hemoglobin Concent 30L, Red Cell Distribution Width 15.7H, Platelet Count 352, Mean Platelet Volume 9.9, Immature Granulocyte % (Auto) 1, Neutrophils (%) (Auto) 85H, Lymphocytes (%) (Auto) 9L, Monocytes (%) (Auto) 4, Eosinophils (%) (Auto) 1, Basophils (%) (Auto) 0, Neutrophils # (Auto) 15.1H, Lymphocytes # (Auto) 1.6, Monocytes # (Auto) 0.7, Eosinophils # (Auto) 0.1, Basophils # (Auto) 0.1, Immature Granulocyte # (Auto) 0.1, Neutrophils % (Manual) 83, Lymphocytes % (Manual) 14, Monocytes % (Manual) 3, Hypochromasia SLIGHT, Basophilic Stippling MODERATE, Sodium Level 141, Potassium Level 3.7, Chloride Level 103, Carbon Dioxide Level 21, Anion Gap 17H, Blood Urea Nitrogen 32H, Creatinine 2.22H, Estimat Glomerular Filtration Rate 24, BUN/Creatinine Ratio 14, Glucose Level 70, Mean Blood Glucose [Pending], Hemoglobin A1c [Pending], Calcium Level 9.9, Corrected Calcium 10.1, Magnesium Level 1.7, Total Bilirubin 0.3, Aspartate Amino Transf (AST/SGOT) 29, Alanine Aminotransferase (ALT/SGPT) 34, Alkaline Phosphatase 71, Total Protein 6.7, Albumin 3.8, Lipase 217H, Serum Alcohol < 10 09/02/21 03:08: Glucometer 87 09/02/21 03:41: Glucometer 228H 09/02/21 04:07: Influenza Type A (RT-PCR) Not Detected, Influenza Type B (RT-PCR) Not Detected, SARS-CoV-2 RNA (RT-PCR) Not Detected 09/02/21 04:10: Glucometer 143H 09/02/21 04:32: Glucometer 142H 09/02/21 05:15: Glucometer 150H 09/02/21 06:00: Glucometer 150H 09/02/21 06:24: Blood Gas Puncture Site RT RADIAL, Blood Gas Patient Temperature 36.8, Arterial Blood pH 7.31*L, Arterial Blood Partial Pressure CO2 55H, Arterial Blood Partial Pressure O2 126H, Arterial Blood HCO3 27, Arterial Blood Total CO2 28.7, Arterial Blood Oxygen Saturation 99, Arterial Blood Base Excess 1.3, Rene Test YES-POS, Blood Gas Ventilator Setting NO, Blood Gas Inspired Oxygen 5L NC 09/02/21 06:36: Glucometer 150H 09/02/21 06:39: Glucometer 146H 09/02/21 07:35: Glucometer 147H 09/02/21 09:03: Glucometer 134H 09/02/21 12:01: Glucometer 145H Home Meds Active Losartan Potassium 25 Mg Tablet 25 Mg PO DAILY 30 Days Metoprolol Succinate 25 Mg Tab.er.24h 25 Mg PO DAILY 30 Days Reported Aspirin EC (Aspirin) 81 Mg Tablet.dr 81 Mg PO DAILY Melatonin 5 Mg Tablet 5 Mg PO HS Levothyroxine Sodium 112 Mcg Tablet 112 Mcg PO DAILY Lantus Solostar (Insulin Glargine,Hum.rec.anlog) 100 Unit/1 Ml Insuln.pen 13 Unit SQ HS Lantus Solostar (Insulin Glargine,Hum.rec.anlog) 100 Unit/1 Ml Insuln.pen 20 Units SC DAILY Humalog (Insulin Lispro) 100 Unit/1 Ml Vial 10 Units SC TIDWM Onglyza (Saxagliptin HCl) 2.5 Mg Tablet 2.5 Mg PO HS Hydrocodone-Acetamin 7.5-325 (Hydrocodone/Acetaminophen) 1 Each Tablet 1 Tab PO Q6- 8H PRN Methocarbamol 500 Mg Tablet 750 Mg PO DAILY TAKES 1 & 500MG TABS Sumatriptan Succinate 100 Mg Tablet 100 Mg PO DAILY PRN Loratadine 10 Mg Tablet 10 Mg PO DAILY Nortriptyline HCl 50 Mg Capsule 50 Mg PO BID Metformin HCl 1,000 Mg Tablet 1,000 Mg PO BID Proair Hfa (Albuterol Sulfate) 8.5 Gm Hfa.aer.ad 2 Puff PO QID PRN Alprazolam 1 Mg Tablet 1 Mg PO HS Omeprazole 20 Mg Capsule.dr 20 Mg PO HS Hydroxyzine HCl 25 Mg Tablet 25 Mg PO DAILY PRN Atorvastatin Calcium 20 Mg Tablet 20 Mg PO HS Furosemide 40 Mg Tablet 40 Mg PO DAILY Assessment/Pt Instructions See instructions Discharge Planning: <30 minutes discharge planning Discharge Instructions Discharge Diet: ADA Diet Activity as Tolerated: Yes Discharge Physical Examination Vital Signs Vital Signs Date Time Temp Pulse Resp B/P (MAP) Pulse Ox O2 Delivery O2 Flow Rate FiO2 09/02/21 14:20 09/02/21 14:00 68 25 99 09/02/21 12:00 Mechanical Ventilator 09/02/21 12:00 36.2 09/02/21 12:00 40.00 General Appearance: No Apparent Distress, Obese Respiratory: Lungs Clear, No Respiratory Distress Cardiovascular: Regular Rate, Rhythm, No Murmur Gastrointestinal: Normal Bowel Sounds, Soft Extremity: Normal Inspection, No Pedal Edema Skin: Normal Color, Warm/Dry Neurologic/Psychiatric: Alert, Normal Mood/Affect Allergies: Coded Allergies: aspirin (Verified Allergy, Unknown, 05/09/15) codeine (Verified Allergy, Unknown, 05/09/15) Discharge Summary Date of Admission Sep 02, 2021 at 03:45 Date of Discharge Sep 02, 2021 at 14:00 Discharge Date: Sep 02, 2021 Discharge Time: 14:00 Admission Diagnosis T2DM with hypoglycemia Discharge Diagnosis (1) Hypoglycemia associated with type 2 diabetes mellitus Status: GUMARO Bustillo MD Sep 02, 2021 17:28
== END 2021-09-02 14:00 | disposition home or self-care (01) | DRG 638 ==
LOC: EDUNIT# 01:52 → ER 01:53 → ICU 03:45
PROVIDERS: ADMIT Family Medicine; ATTEND Internal Medicine
DX: E11.649 Type 2 diabetes mellitus with hypoglycemia without coma (principal); I13.0 Hypertensive heart and chronic kidney disease with heart failure and stage 1 through stage 4 chronic kidney disease, or unspecified chronic kidney disease; E11.40 Type 2 diabetes mellitus with diabetic neuropathy, unspecified; Z79.4 Long term (current) use of insulin; Z79.84 Long term (current) use of oral hypoglycemic drugs; Z91.81 History of falling; F41.9 Anxiety disorder, unspecified; N28.9 Disorder of kidney and ureter, unspecified; Z20.822 Contact with and (suspected) exposure to COVID-19; E03.9 Hypothyroidism, unspecified; J45.909 Unspecified asthma, uncomplicated; G47.30 Sleep apnea, unspecified; E11.22 Type 2 diabetes mellitus with diabetic chronic kidney disease; N18.9 Chronic kidney disease, unspecified; I50.9 Heart failure, unspecified; E78.00 Pure hypercholesterolemia, unspecified; K21.9 Gastro-esophageal reflux disease without esophagitis; G25.81 Restless legs syndrome; E66.9 Obesity, unspecified; B88.8 Other specified infestations; Z88.5 Allergy status to narcotic agent; Z68.33 Body mass index [BMI] 33.0-33.9, adult; Z88.6 Allergy status to analgesic agent
CPT/HCPCS: 36415; 36600; 36680; 51702; 80053; 80306; 80320; 81000; 82805; 82947; 83036; 83690; 83735; 85007; 85027; 87636; 93041; 94660; G0378

== ENCOUNTER 2022-01-28 18:51 | Emergency (ER) | payer MEDICAID ==
[~2022-01-28] VITALS: Ht 170.2 cm; Wt 90.7 kg
[2022-01-28 19:30] VITALS: BP 128/93
--- NOTE | 2022-01-28 20:14 | ED Neck-Back Pain/Injury ---
General Chief Complaint: Head/Cervical Problems Stated Complaint: VAQZUEZ Nursing Triage Note: PT TO TRIAGE BY WC WITH COMPLAINT OF HEADACHE AND RIGHT NECK/SHOULDER PAIN. STATES HAS BEEN ONGOING FOR TWO WEEKS. STATES DOES HAVE DIZZINESS. Source of Information: Patient Exam Limitations: No Limitations History of Present Illness Date Seen by Provider: Jan 28, 2022 Time Seen by Provider: 20:14 Allergies and Home Medications Allergies Coded Allergies: aspirin (Verified Allergy, Unknown, 05/09/15) codeine (Verified Allergy, Unknown, 05/09/15) Patient Home Medication List Albuterol Sulfate (Proair Hfa) 8.5 Gm Hfa.aer.ad, 2 PUFF PO QID PRN for SHORTNESS OF BREATH, (Reported) Entered as Reported by: OBDULIA CREWS on 05/09/151835 Alprazolam (Alprazolam) 1 Mg Tablet, 1 MG PO HS, (Reported) Entered as Reported by: OBDULIA CREWS on 05/09/15 183 Aspirin (Aspirin EC) 81 Mg Tablet.dr, 81 MG PO DAILY, (Reported) Entered as Reported by: TAMMY ADAME on 10/28/19 1155 Atorvastatin Calcium (Atorvastatin Calcium) 20 Mg Tablet, 20 MG PO HS, (Reported) Entered as Reported by: OBDULIA CREWS on 05/09/15 183 Furosemide (Furosemide) 40 Mg Tablet, 40 MG PO DAILY, (Reported) Entered as Reported by: OBDULIA CREWS on 05/09/151835 Hydrocodone/Acetaminophen (Hydrocodone-Acetamin 7.5-325) 1 Each Tablet, 1 TAB PO Q6- 8H PRN for PAIN-MODERATE (5-7), (Reported) Entered as Reported by: TAMMY ADAME on 10/28/19 1154 Hydrocodone/Acetaminophen (Hydrocodone-Acetamin 5-325 mg) 5 Mg-325 Mg Tablet, 1 TAB PO Q6H PRN for PAIN-MODERATE (5-7) Prescribed by: ORALIA STODDARD on 01/28/22 2305 Hydroxyzine HCl (Hydroxyzine HCl) 25 Mg Tablet, 25 MG PO DAILY PRN for ITCHING, (Reported) Entered as Reported by: OBDULIA CREWS on 05/09/15 183 Insulin Glargine,Hum.rec.anlog (Lantus Solostar) 100 Unit/1 Ml Insuln.pen, 20 UNITS SC DAILY, (Reported) Entered as Reported by: TAMMY ADAME on 10/28/19 115 Insulin Glargine,Hum.rec.anlog (Lantus Solostar) 100 Unit/1 Ml Insuln.pen, 13 UNIT SQ HS, (Reported) Entered as Reported by: TAMMY ADAME on 10/28/19 115 Insulin Lispro (Humalog) 100 Unit/1 Ml Vial, 10 UNITS SC TIDWM, (Reported) Entered as Reported by: TAMMY ADAME on 10/28/19 115 Levothyroxine Sodium (Levothyroxine Sodium) 112 Mcg Tablet, 112 MCG PO DAILY, (Reported) Entered as Reported by: TAMMY ADAME on 10/28/19 115 Loratadine (Loratadine) 10 Mg Tablet, 10 MG PO DAILY, (Reported) Entered as Reported by: OBDULIA CREWS on 05/09/151835 Losartan Potassium (Losartan Potassium) 25 Mg Tablet, 25 MG PO DAILY Prescribed by: GUMARO GRUBBS on 10/31/19 0950 Melatonin (Melatonin) 5 Mg Tablet, 5 MG PO HS, (Reported) Entered as Reported by: TAMMY ADAME on 10/28/19 115 Metformin HCl (Metformin HCl) 1,000 Mg Tablet, 1,000 MG PO BID, (Reported) Entered as Reported by: OBDULIA CREWS on 05/09/151835 Methocarbamol (Methocarbamol) 500 Mg Tablet, 750 MG PO DAILY, (Reported) Entered as Reported by: TAMMY ADAME on 10/28/19 115 Methocarbamol (Methocarbamol) 500 Mg Tablet, 1,000 MG PO Q6-8HR Prescribed by: ORALIA STODDARD on 01/28/22 2304 Metoprolol Succinate (Metoprolol Succinate) 25 Mg Tab.er.24h, 25 MG PO DAILY Prescribed by: GUMARO GRUBBS on 10/31/19 0950 Nortriptyline HCl (Nortriptyline HCl) 50 Mg Capsule, 50 MG PO BID, (Reported) Entered as Reported by: OBDULIA CREWS on 05/09/151835 Omeprazole (Omeprazole) 20 Mg Capsule.dr, 20 MG PO HS, (Reported) Entered as Reported by: OBDULIA CREWS on 05/09/15 1836 Saxagliptin HCl (Onglyza) 2.5 Mg Tablet, 2.5 MG PO HS, (Reported) Entered as Reported by: TAMMY ADAME on 10/28/19 1154 Sumatriptan Succinate (Sumatriptan Succinate) 100 Mg Tablet, 100 MG PO DAILY PRN for MIGRAINE, (Reported) Entered as Reported by: OBDULIA CREWS on 05/09/15 1836 Past Borxuby-Gkrlzo-Gzkpll Hx Patient Social History Tobacco Use?: No Substance use?: No Alcohol Use?: No Pt feels they are or have been: No Immunizations Up To Date Tetanus Booster (TDap): Less than 5yrs PED Vaccines UTD: Yes First/Initial COVID19 Vaccinat: UNKNOWN DATE Second COVID19 Vaccination Joby: 09/02/20 Third COVID19 Vaccination Date: UNKNOWN DATE Seasonal Allergies Seasonal Allergies: Yes Past Medical History Surgeries: Yes Abdominal, Appendectomy, Section, Gallbladder, Hysterectomy, Oophorectomy, Orthopedic, Tubal Ligation Respiratory: Yes Asthma, Sleep Apnea Currently Using CPAP: No Cardiac: Yes (CHF) High Cholesterol, Hypertension Neurological: Yes Headaches /Migraines, Neuropathy Reproductive Disorders: Yes (UTERINE FIBROID) 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, Menopausal Genitourinary: Yes Bladder Infection Gastrointestinal: Yes Gastroesophageal Reflux Musculoskeletal: Yes (CHRONIC KNEE PAIN; RESTLESS LEG SYNDROME; FREQUENT FALLS;CHRONIC OPIATE USE) Degenerate Disk Disease, Arthritis, Chronic Back Pain Endocrine: Yes (OBESITY) Diabetes, Insulin dep, Hypothyroidsim HEENT: Yes (POOR DENTITION) Cancer: No Psychosocial: Yes Sleep Difficulties, Anxiety Integumentary: Yes Psoriasis Blood Disorders: No Family Medical History Diabetes mellitus 19 MOTHER FH: skin cancer 19 MOTHER SOCIAL HISTORY: -SMOKED 1/2 PPD, QUIT 1989 -RARE ETOH -DENIES DRUG USE PAST SURGICAL HISTORY: -C-SECTIONS X 3 -BILATERAL TUBAL LIGATION -APPENDECTOMY -CHOLECYSTECTOMY -HYSTERECTOMY/BILATERAL SALPINGO-OOPHORECTOMY -RIGHT CARPAL TUNNEL -EGD/COLONOSCOPY Physical Exam Vital Signs Vital Signs - First Documented 01/28/22 19:30 Temp 37.1 Pulse 105 Resp 16 B/P (MAP) 128/93 (105) Pulse Ox 97 O2 Delivery Room Air Capillary Refill : Less Than 3 Seconds Height, Weight, BMI Height: 5'6" Weight: 225lbs. oz. 102.620115rv; 31.00 BMI Method: Progress/Results/Core Measures Results/Orders My Orders Orders - ORALIA STODDARD C[employer] INSPECTOR Ct Cervical Spine Wo (01/28/22 20:13) Vital Signs/I&O 01/28/22 19:30 Temp 37.1 Pulse 105 Resp 16 B/P (MAP) 128/93 (105) Pulse Ox 97 O2 Delivery Room Air Blood Pressure Mean: 105 Departure Impression Primary Impression: Cervical spine degeneration Additional Impression: Muscle spasm Disposition: HOME, SELF-CARE Condition: Improved Departure-Patient Inst. Decision time for Depature: 22:57 Referrals: NO,LOCAL PHYSICIAN (PCP/Family) Primary Care Physician Patient Instructions: Muscle Spasm ED, Degenerative Disc Disease ED Add. Discharge Instructions: Plan: 1. May use ice/heat 20 minutes at a time for pain and stiffness. 2. Use Methocarbamol 500mg by mouth every 6-8 hours as needed for spasm. 3. Call your doctor tomorrow to schedule close follow up. It will be beneficial to have MRI imaging of your spine for further evaluation. 4. Also discuss concerns for rheumatoid arthritis with your doctor. 5. May take Danyelle-tab 5/325mg by mouth every 6 hours as needed for pain. Do not drive while taking. 6. Return to ER if you have loss of sensation or feeling in your hands or legs, incontinence of urine. 7. Return for any new, concerning, or worsening symptoms. All discharge instructions reviewed with patient and/or family. Voiced understanding. Scripts Hydrocodone/Acetaminophen (Hydrocodone-Acetamin 5-325 mg) 5 Mg-325 Mg Tablet 1 TAB PO Q6H PRN for PAIN-MODERATE (5-7), #10 TAB 0 Refills Prov: ORALIA STODDARD [employer] INSPECTOR 01/28/22 Methocarbamol (Methocarbamol) 500 Mg Tablet 1000 MG PO Q6-8HR for Back Pain, #12 TAB 0 Refills Prov: ORALIA STODDARD C[employer] INSPECTOR 01/28/22 ORALIA STODDARD APRN Jan 28, 2022 20:14
--- NOTE | 2022-01-28 21:51 | Diagnostic Imaging Report ---
Clinical indications: Patient with headache, shoulder and neck pain which has been going on for 2 weeks. Exam: Axial CT scan of the cervical spine performed without IV contrast with sagittal and coronal reformatted images. Auto Exposure Controls were utilized during the CT exam to meet ALARA standards for radiation dose reduction. COMPARISON: None. FINDINGS: There is no acute cervical spine fracture. There is reversal of the cervical lordosis. There are erosive changes involving the odontoid process and periodontoid pannus which may be related to CPPD or rheumatoid arthritis. There is no major bony central canal narrowing at the C1-C2 level. There is non-segmentation anomaly involving the C2 and C3 vertebrae. There is no significant paraspinal soft tissue abnormality. The visualized upper lung lima are clear. C2-C3: There is mild diffuse disk bulge and right-sided uncinate spurs. There is severe right facet arthropathy and mild left facet arthropathy. There is severe right neural foramen narrowing and mild to moderate left neural foramen narrowing. There is at least mild bony central canal narrowing. C3-C4: There is the appearance of a diffuse disk bulge. There is moderate right facet arthropathy and mild left facet arthropathy. There is mild to moderate right neural foramen narrowing and no significant left neural foramen narrowing. There is no significant bony central canal narrowing. C4-C5: There is diffuse disk bulge with bilateral uncinate spurs. There is moderate bilateral facet arthropathy. There is severe bilateral neural foramen narrowing. There is significant endplate irregularity and subchondral cystic changes with fusion of the endplates. There is no paraspinal soft tissue inflammation changes seen. C5-C6: There is diffuse disk bulge with severe loss of disk space height and bilateral uncinate spurs. There is moderate to severe right neural foramen narrowing and severe left neural foramen narrowing. There is moderate bony central canal narrowing. C6-C7: There is diffuse disk bulge with severe loss of disk space height. There are bilateral uncinate spurs and bilateral facet arthropathy. There is severe bilateral neural foramen narrowing. There is no significant bony central canal narrowing. C1-C2: There is diffuse disk bulge with severe loss of disk space height. There is bilateral facet arthropathy. There is severe bilateral neural foramen narrowing. There is no significant bony central canal narrowing. IMPRESSION: 1: There is no acute cervical spine fracture. 2: There is severe multilevel cervical spine degenerative disease which is described above. 3: There are erosive changes involving the odontoid process and periodontoid pannus which may be seen with CPPD or rheumatoid arthritis. Dictated by: Dictated on workstation # [id number]
[2022-01-28] MEDS ORDERED: ACHD5005 PO (23:04)
[2022-01-28] MEDS ORDERED: METH-731 PO (23:04)
[2022-01-28] MEDS ORDERED: HYDROcodone/APAP 5 MG/325 MG (LORTAB) TAB PO ONE (23:15)
== END 2022-01-28 23:22 | disposition home or self-care (01) ==
LOC: EDUNIT# 18:51 → ER 18:52
DX: M50.30 Other cervical disc degeneration, unspecified cervical region (principal); M62.838 Other muscle spasm; E66.9 Obesity, unspecified; Z87.891 Personal history of nicotine dependence; Z68.31 Body mass index [BMI] 31.0-31.9, adult; Z88.5 Allergy status to narcotic agent
CPT/HCPCS: 72125

== ENCOUNTER → 2022-08-12 | Emergency (ER) | payer MEDICAID ==
[~2022-08-12] VITALS: Ht 167.7 cm; Wt 90.7 kg
[~2022-08-12] MED LIST changes: +ACHD5005 PO; +ALBU8.5H6 PO; -RT-ALBUINH PO
--- NOTE | 2022-08-12 15:55 | ED General ---
General Chief Complaint: General Problems/Pain Stated Complaint: BILAT LEG WEAKNESS | NUMB HANDS Nursing Triage Note: PT TO RM 7 WITH COMPLAINT OF BILATERAL LEG WEAKNESS. STATES HAS HAD A DECLINE OVER THE LAST COUPLE MONTHS. Source of Information: Patient, Family, Old Records Exam Limitations: No Limitations (MAGALI SHORT) History of Present Illness Date Seen by Provider: Aug 12, 2022 Time Seen by Provider: 15:05 Initial Comments Mrs. Garcia is a 62 yo F with PMH of DM and degenerative cervical bone dz who presents to the ED today with concern for B/L leg weakness and burning pain made worse with movement that has been developing over the last few months and has gotten progressively worse to the point that she is unable to stand without assistance or dress herself which prompted her visit today. She states that she has not taken any pain medication for this issue, but does regularly take hydrocodone as directed for pain. She denies loss of bowel control or N/V/F/C/D. She tends to ramble on making history taking somewhat difficult. Timing/Duration: Changing Over Time, Getting Worse Severity: Moderate Modifying Factors: improves with Immobilization; worse with Movement; improves with Rest Associated Systoms: No Chest Pain, No Cough, No Fever/Chills, No Headaches, No Nausea/Vomiting, No Shortness of Air, No Syncope; Weakness (MAGALI SHORT) Allergies and Home Medications Allergies Coded Allergies: aspirin (Verified Allergy, Unknown, 05/09/15) codeine (Verified Allergy, Unknown, 05/09/15) Patient Home Medication List Home Medication List Reviewed: Yes (OZZY PARKINSON MD) Albuterol Sulfate (Ventolin Hfa) 8.5 Gm Hfa.aer.ad, 2 PUFF PO QID PRN for SHORTNESS OF BREATH, (Reported) Entered as Reported by: OBDULIA CREWS on 05/09/151835 Alprazolam (Alprazolam) 1 Mg Tablet, 1 MG PO HS, (Reported) Entered as Reported by: OBDULIA CREWS on 05/09/151835 Aspirin (Aspirin EC) 81 Mg Tablet.dr, 81 MG PO DAILY, (Reported) Entered as Reported by: TAMMY ADAME on 10/28/19 1155 Atorvastatin Calcium (Atorvastatin Calcium) 20 Mg Tablet, 20 MG PO HS, (Reported) Entered as Reported by: OBDULIA CREWS on 05/09/151835 Furosemide (Furosemide) 40 Mg Tablet, 40 MG PO DAILY, (Reported) Entered as Reported by: OBDULIA CREWS on 05/09/151835 Hydrocodone/Acetaminophen (Hydrocodone-Acetamin 7.5-325) 1 Each Tablet, 1 TAB PO Q6- 8H PRN for PAIN-MODERATE (5-7), (Reported) Entered as Reported by: TAMMY ADAME on 10/28/191153 Hydrocodone/Acetaminophen (Hydrocodone-Acetamin 5-325 mg) 5 Mg-325 Mg Tablet, 1 TAB PO Q6H PRN for PAIN-MODERATE (5-7) Prescribed by: ORALIA STODDARD on 01/28/22 2305 Hydroxyzine HCl (Hydroxyzine HCl) 25 Mg Tablet, 25 MG PO DAILY PRN for ITCHING, (Reported) Entered as Reported by: OBDULIA CREWS on 05/09/151835 Insulin Glargine,Hum.rec.anlog (Lantus Solostar) 100 Unit/1 Ml Insuln.pen, 20 UNITS SC DAILY, (Reported) Entered as Reported by: TAMMY ADAME on 10/28/191153 Insulin Glargine,Hum.rec.anlog (Lantus Solostar) 100 Unit/1 Ml Insuln.pen, 13 UNIT SQ HS, (Reported) Entered as Reported by: TAMMY ADAME on 10/28/191153 Insulin Lispro (Humalog) 100 Unit/1 Ml Vial, 10 UNITS SC TIDWM, (Reported) Entered as Reported by: TAMMY ADAME on 10/28/19 115 Levothyroxine Sodium (Levothyroxine Sodium) 112 Mcg Tablet, 112 MCG PO DAILY, (Reported) Entered as Reported by: TAMMY ADAME on 10/28/19 115 Loratadine (Loratadine) 10 Mg Tablet, 10 MG PO DAILY, (Reported) Entered as Reported by: OBDULIA CREWS on 05/09/151835 Losartan Potassium (Losartan Potassium) 25 Mg Tablet, 25 MG PO DAILY Prescribed by: GUMARO GRUBBS on 10/31/19 0950 Melatonin (Melatonin) 5 Mg Tablet, 5 MG PO HS, (Reported) Entered as Reported by: TAMMY ADAME on 10/28/19 1155 Metformin HCl (Metformin HCl) 1,000 Mg Tablet, 1,000 MG PO BID, (Reported) Entered as Reported by: OBDULIA CREWS on 05/09/15 183 Methocarbamol (Methocarbamol) 500 Mg Tablet, 750 MG PO DAILY, (Reported) Entered as Reported by: TAMMY ADAME on 10/28/19 1154 Methocarbamol (Methocarbamol) 500 Mg Tablet, 1,000 MG PO Q6-8HR Prescribed by: ORALIA STODDARD on 01/28/22 2304 Metoprolol Succinate (Metoprolol Succinate) 25 Mg Tab.er.24h, 25 MG PO DAILY Prescribed by: GUMARO GRUBBS on 10/31/19 0950 Nortriptyline HCl (Nortriptyline HCl) 50 Mg Capsule, 50 MG PO BID, (Reported) Entered as Reported by: OBDULIA CREWS on 05/09/15 183 Omeprazole (Omeprazole) 20 Mg Capsule.dr, 20 MG PO HS, (Reported) Entered as Reported by: OBDULIA CREWS on 05/09/15 183 Saxagliptin HCl (Onglyza) 2.5 Mg Tablet, 2.5 MG PO HS, (Reported) Entered as Reported by: TAMMY ADAME on 10/28/19 115 Sumatriptan Succinate (Sumatriptan Succinate) 100 Mg Tablet, 100 MG PO DAILY PRN for MIGRAINE, (Reported) Entered as Reported by: OBDULIA CREWS on 05/09/15 183 Review of Systems Review of Systems Constitutional: No chills, No fever, No malaise; weakness EENTM: No hearing loss, No blurred vision, No double vision, No vision loss, No mouth pain, No throat pain Respiratory: No cough, No short of breath Gastrointestinal: No abdominal pain, No diarrhea; heartburn; No nausea, No vomiting Genitourinary: No dysuria, No incontinence Musculoskeletal: back pain; No joint pain, No muscle pain, No muscle stiffness, No muscle cramps; muscle weakness Skin: No change in color, No rash Psychiatric/Neurological: Denies Headache, Denies Numbness; Paresthesia, Weakness (MAGALI SHORT) Past Tanfmfx-Isespc-Jopyuf Hx Patient Social History Tobacco Use?: No Use of E-Cig and/or Vaping dev: No Substance use?: No Alcohol Use?: No Pt feels they are or have been: No (MAGALI SHORT) Immunizations Up To Date Tetanus Booster (TDap): Less than 5yrs PED Vaccines UTD: Yes First/Initial COVID19 Vaccinat: UNKNOWN DATE Second COVID19 Vaccination Joby: 09/02/20 Third COVID19 Vaccination Date: UNKNOWN DATE (MAGALI SHORT) Seasonal Allergies Seasonal Allergies: Yes (MAGALI SHORT) Past Medical History Surgeries: Yes Abdominal, Appendectomy, Section, Gallbladder, Hysterectomy, Oophorectomy, Orthopedic, Tubal Ligation Respiratory: Yes Asthma, Sleep Apnea Currently Using CPAP: No Cardiac: Yes (CHF) High Cholesterol, Hypertension Neurological: Yes Headaches /Migraines, Neuropathy Reproductive Disorders: Yes (UTERINE FIBROID) 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, 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 Genitourinary: Yes Bladder Infection Gastrointestinal: Yes Gastroesophageal Reflux Musculoskeletal: Yes (CHRONIC KNEE PAIN; RESTLESS LEG SYNDROME; FREQUENT FALLS;CHRONIC OPIATE USE) Degenerate Disk Disease, Arthritis, Chronic Back Pain Endocrine: Yes (OBESITY) Diabetes, Insulin dep, Hypothyroidsim HEENT: Yes (POOR DENTITION) Cancer: No Psychosocial: Yes Sleep Difficulties, Anxiety Integumentary: Yes Psoriasis Blood Disorders: No (MAGALI SHORT) Family Medical History Diabetes mellitus 19 MOTHER FH: skin cancer 19 MOTHER SOCIAL HISTORY: -SMOKED 1/2 PPD, QUIT 1989 -RARE ETOH -DENIES DRUG USE PAST SURGICAL HISTORY: -C-SECTIONS X 3 -BILATERAL TUBAL LIGATION -APPENDECTOMY -CHOLECYSTECTOMY -HYSTERECTOMY/BILATERAL SALPINGO-OOPHORECTOMY -RIGHT CARPAL TUNNEL -EGD/COLONOSCOPY (MAGALI SHORT) Physical Exam Vital Signs Vital Signs - First Documented 08/12/22 15:03 Temp 36.3 Pulse 81 Resp 16 B/P (MAP) 145/98 (114) Pulse Ox 96 O2 Delivery Room Air (OZZY PARKINSON MD) Vital Signs Capillary Refill : Less Than 3 Seconds (MAGALI SHORT) Height, Weight, BMI Height: 5'6" Weight: 225lbs. oz. 102.125130ge; 32.00 BMI Method: General Appearance: No Apparent Distress, WD/WN, Obese Eyes: Bilateral Eye Normal Inspection, Bilateral Eye PERRL, Bilateral Eye EOMI HEENT: PERRL/EOMI Neck: Non Tender, Supple, Limited Range of Motion Respiratory: Chest Non Tender, Lungs Clear, Normal Breath Sounds, No Accessory Muscle Use, No Respiratory Distress Cardiovascular: Regular Rate, Rhythm, No Edema, No Gallop, No JVD, No Murmur, Normal Peripheral Pulses Gastrointestinal: Normal Bowel Sounds, No Organomegaly, No Pulsatile Mass, Non Tender, Soft Back: No CVA Tenderness, Vertebral Tenderness Extremity: Normal Capillary Refill, Normal Range of Motion, Non Tender, No Calf Tenderness, No Pedal Edema, Other (Reduced muscle strength B/L, upper and lower extremities - pain from back and thigh when raising them that does not radiate down legs - actively or passively Sensation intact B/L, upper and lower extremities.) Neurologic/Psychiatric: Alert, Oriented x3, Normal Mood/Affect, supervisor process testing II-XII Norm as Tested, Abnormal Gait, Motor Weakness; No Sensory Deficit Reflexes: 2+ Knee (R) (painful when stimulated); 0 Knee (L) Skin: Normal Color, Warm/Dry, Rash (Psoriactic elbows) Lymphatic: No Adenopathy Comments Note - the patient's clothing is soiled and infested with bedbugs. (MAGALI SHORT) Progress/Results/Core Measures Suspected Sepsis SIRS Temperature: Pulse: 81 Respiratory Rate: 16 Blood Pressure 145 /98 Mean: 114 (MAGALI SHORT) SIRS Laboratory Tests 08/12/22 17:20: White Blood Count 8.5 Laboratory Tests 08/12/22 17:20: Creatinine 1.69H, Platelet Count 308, Total Bilirubin 0.6 (OZZY PARKINSON MD) Results/Orders Lab Results Laboratory Tests Test 08/12/22 17:20 Range/Units White Blood Count 8.5 4.3-11.0 10^3/uL Red Blood Count 4.60 3.80-5.11 10^6/uL Hemoglobin 13.4 11.5-16.0 g/dL Hematocrit 42 35-52 % Mean Corpuscular Volume 92 80-99 fL Mean Corpuscular Hemoglobin 29 25-34 pg Mean Corpuscular Hemoglobin Concent 32 32-36 g/dL Red Cell Distribution Width 13.6 10.0-14.5 % Platelet Count 308 130-400 10^3/uL Mean Platelet Volume 9.8 9.0-12.2 fL Immature Granulocyte % (Auto) 1 % Neutrophils (%) (Auto) 57 42-75 % Lymphocytes (%) (Auto) 29 12-44 % Monocytes (%) (Auto) 7 0-12 % Eosinophils (%) (Auto) 5 0-10 % Basophils (%) (Auto) 1 0-10 % Neutrophils # (Auto) 4.9 1.8-7.8 10^3/uL Lymphocytes # (Auto) 2.5 1.0-4.0 10^3/uL Monocytes # (Auto) 0.6 0.0-1.0 10^3/uL Eosinophils # (Auto) 0.5 H 0.0-0.3 10^3/uL Basophils # (Auto) 0.1 0.0-0.1 10^3/uL Immature Granulocyte # (Auto) 0.1 0.0-0.1 10^3/uL Sodium Level 141 135-145 MMOL/L Potassium Level 4.4 3.6-5.0 MMOL/L Chloride Level 103 98-107 MMOL/L Carbon Dioxide Level 27 21-32 MMOL/L Anion Gap 11 5-14 MMOL/L Blood Urea Nitrogen 18 7-18 MG/DL Creatinine 1.69 H 0.60-1.30 MG/DL Estimat Glomerular Filtration Rate 34 BUN/Creatinine Ratio 11 Glucose Level 99 70-105 MG/DL Calcium Level 10.4 H 8.5-10.1 MG/DL Corrected Calcium 10.6 H 8.5-10.1 MG/DL Total Bilirubin 0.6 0.1-1.0 MG/DL Aspartate Amino Transf (AST/SGOT) 46 H 5-34 U/L Alanine Aminotransferase (ALT/SGPT) 58 H 0-55 U/L Alkaline Phosphatase 95 40-136 U/L Total Protein 6.9 6.4-8.2 GM/DL Albumin 3.8 3.2-4.5 GM/DL (OZZY PARKINSON MD) My Orders Orders - OZZY PARKINSON MD Ct Lumbar Spine Wo (08/12/22 15:49) Ed Iv/Invasive Line Start (08/12/22 16:48) Cbc With Automated Diff (08/12/22 16:48) Comprehensive Metabolic Panel (08/12/22 16:48) Ua Culture If Indicated (08/12/22 16:48) (OZYZ PARKINSON MD) Vital Signs/I&O 08/12/22 15:03 Temp 36.3 Pulse 81 Resp 16 B/P (MAP) 145/98 (114) Pulse Ox 96 O2 Delivery Room Air (OZZY PARKINSON MD) Vital Signs/I&O Capillary Refill : Less Than 3 Seconds (MAGALI SHORT) Blood Pressure Mean: 114 Progress Note : Time: 17:27 Progress Note Patient seen and evaluated by me, 62-year-old female with generalized weakness arms and legs. Longstanding, worsening now in the legs to where she cannot get up and around at home and take care of ADLs. History of diabetes, hypertension. No recent illnesses, vaccinations. Evaluation today includes CT lumbar spine. This shows severely degenerative disease from L1-L3. Patient is discussed with Dr. Calle who recommended adding basic labs and discussion with the neurologist. Physical exam pertinent for 3 out of 5 strength bilateral upper extremities flexors, extensors including intrinsics of the hand (right). Also patient states that she is actually unable to dorsiflex both feet. She is minimally able to flex at the knees. She is able to straight leg raise approximately 10 to 20 degrees off the bed more right than left. Sensation is intact throughout. I was only able to get a 2+ DTR at the right patella unable to elicit left patellar reflex patient has not been incontinent. No saddle anesthesia Labs pending at the time of dictation. 1750 reexamined - patient actually does have 5/5 plantar/dorsiflexion. decreased sensation R>L. Spoke with Dr Quintanilla ([facility]) felt like the patient needs MRI brain and spine. if pos, referal to Neurosurg; if neg would need NCS and spinal tap. Thinks the patient would be best served in a hospital with neuro capabilities, however [facility] does not have any beds. Recc possibly . (OZZY PARKINSON MD) Progress Note : Progress Note transfer center called back at 7:11 PM. Their neurologist is requesting a CT head before they will make a decision on admitting the patient. CT head was then ordered. CT imaging with nothing acute. Discussed the case with Dr. Crabtree, neurology at [facility]. Given we do not have neurology, neurosurgical capabilities, or MRI at this time overnight, they will accept the patient for transfer given the relati vely rapid progressive weakness of the patient. (TUNG SAHU MD) Diagnostic Imaging Diagonstic Imaging: CT Comments [facility], [place] NAME: ELENA GARCIA [facility] REC#: [id number] PT STATUS: REG ER : 1960 PHYSICIAN: OZZY PARKINSON MD ADMIT DATE: 08/12/22/ER Signed Date of Exam:08/12/22 CT LUMBAR SPINE WO PROCEDURE: CT lumbar spine without contrast. TECHNIQUE: Multiple contiguous axial images were obtained through the lumbar spine without the use of intravenous contrast. Sagittal and coronal reformations were then performed. Auto Exposure Controls were utilized during the CT exam to meet ALARA standards for radiation dose reduction. INDICATION: Low back pain radiating to legs. COMPARISON: None available. FINDINGS: There is mild degenerative levoscoliosis within the lumbar spine. Advanced degenerative changes are present at L1-L2 and L2-L3, which are asymmetrically advanced along the left lateral margin. At these levels, there is endplate sclerosis and irregularity. Air within the intervertebral spaces at this level is compatible with vacuum phenomenon. No inflammatory stranding is seen within the surrounding paravertebral musculature. No acute fracture within the lumbar spine. Facet osteoarthritis is present in the lower lumbar spine, greatest at L5-S1. Combination of degenerative disc disease, facet osteoarthritis and ligamentum flavum hypertrophy causes moderate spinal canal stenosis at L2-L3. No concerning abnormality in the retroperitoneum. IMPRESSION: 1. Marked degenerative disc disease at L1-L2 and L2-L3. At L2-L3, there is likely moderate spinal canal stenosis due to the degenerative changes in association with facet osteoarthritis. 2. No acute fracture within the lumbar spine. 3. MRI lumbar spine without contrast could provide better assessment of potential nerve root impingement, as deemed clinically indicated. Dictated by: Dictated on workstation # [id number] Dict: 08/12/22 163 Trans: 08/12/221656 [id number] [id number] Interpreted by: IDRIS FELICIANO MD Electronically signed by: IDRIS FELICIANO MD 08/12/221656 (OZZY PARKINSON MD) Comments NAME: ELENA GARCIA [facility] REC#: [id number] PT STATUS: REG ER : 1960 PHYSICIAN: TUNG SAHU MD ADMIT DATE: 08/12/22/ER Signed Date of Exam:08/12/22 CT HEAD WO PROCEDURE: CT head without contrast. TECHNIQUE: Multiple contiguous axial images were obtained through the brain without the use of intravenous contrast. Auto Exposure Controls were utilized during the CT exam to meet ALARA standards for radiation dose reduction. INDICATION: 62-year-old female with bilateral leg weakness with progressive decline over the last several months. COMPARISONS: 09/05/2020 FINDINGS: Midline structures are not displaced. Lateral, 3rd and 4th ventricles are normal in size, shape and anatomic position. There is generalized atrophy with involutional changes with a slight temporal lobe predominance. Morris-white differentiation is maintained. There are minimal background chronic areas of microvascular ischemic change. There is no sulcal effacement. There are no abnormal extra-axial fluid collections or hemorrhage. Basilar cisterns appear normal. The sinuses, orbits and mastoid air cells are grossly unremarkable. Bone windows show no calvarial changes. IMPRESSION: Mild atrophy, more prominent in the temporal lobes. Some background chronic areas of microvascular ischemic change are seen. Overall, no acute findings identified by nonenhanced CT criteria. Dictated by: Dictated on workstation # [id number] Dict: 08/12/221932 Trans: 08/12/221952 [facility] [id number] Interpreted by: FABIEN HERNANDEZ MD Electronically signed by: FABIEN HERNANDEZ MD 08/12/221952 (TUNG SAHU MD) Departure Impression Primary Impression: Progressive focal motor weakness Disposition: XFER SHT-TRM HOSP Condition: Stable Admissions Decision to Admit/Date: Aug 12, 2022 Time/Decision to Admit Time: 19:30 (TUNG SAHU MD) Transfer Transfer Reason: Exceeds level of care (needs MRI and neuro specialist) Time Spoke to Accepting Phy: 20:20 Transfer Progress Notes Discussed the case with Dr. Harpreet Crabtree, neurology at [facility]. Patient will be excepted for transfer for MRI and potential neurosurgery consultation as well. Transfer Facility: [facility] Method of Transfer: EMS (TUNG SAHU MD) Departure-Patient Inst. Referrals: DELBERT GARCIA MD (PCP/Family) Primary Care Physician Verification and Attestation of Medical Student E/M Service A medical student performed and documented this service in my presence. I reviewed and verified all information documented by the medical student and made modifications to such information, when appropriate. I personally performed the physical exam and medical decision making. Ozzy Parkinson, Aug 12, 2022,17:31 (OZZY PARKINSON MD) MAGALI SHORT Aug 12, 2022 15:55 OZZY PARKINSON MD Aug 12, 2022 17:31 TUNG SAHU MD Aug 12, 2022 19:12
--- NOTE | 2022-08-12 16:39 | Diagnostic Imaging Report ---
PROCEDURE: CT lumbar spine without contrast. TECHNIQUE: Multiple contiguous axial images were obtained through the lumbar spine without the use of intravenous contrast. Sagittal and coronal reformations were then performed. Auto Exposure Controls were utilized during the CT exam to meet ALARA standards for radiation dose reduction. INDICATION: Low back pain radiating to legs. COMPARISON: None available. FINDINGS: There is mild degenerative levoscoliosis within the lumbar spine. Advanced degenerative changes are present at L1-L2 and L2-L3, which are asymmetrically advanced along the left lateral margin. At these levels, there is endplate sclerosis and irregularity. Air within the intervertebral spaces at this level is compatible with vacuum phenomenon. No inflammatory stranding is seen within the surrounding paravertebral musculature. No acute fracture within the lumbar spine. Facet osteoarthritis is present in the lower lumbar spine, greatest at L5-S1. Combination of degenerative disc disease, facet osteoarthritis and ligamentum flavum hypertrophy causes moderate spinal canal stenosis at L2-L3. No concerning abnormality in the retroperitoneum. IMPRESSION: 1. Marked degenerative disc disease at L1-L2 and L2-L3. At L2-L3, there is likely moderate spinal canal stenosis due to the degenerative changes in association with facet osteoarthritis. 2. No acute fracture within the lumbar spine. 3. MRI lumbar spine without contrast could provide better assessment of potential nerve root impingement, as deemed clinically indicated. Dictated by: Dictated on workstation # [id number]
[2022-08-12 17:33] LABS: BASOPHILS # (AUTO) 0.1 10^3/uL (0.0-0.1); BASOPHILS % (AUTO) 1 % (0-10); EOSINOPHILS # (AUTO) 0.5 10^3/uL (0.0-0.3); EOSINOPHILS % (AUTO) 5 % (0-10); HEMATOCRIT 42 % (35-52); HEMOGLOBIN 13.4 g/dL (11.5-16.0); LYMPHOCYTES # (AUTO) 2.5 10^3/uL (1.0-4.0); LYMPHOCYTES % (AUTO) 29 % (12-44); MEAN CORPUSCULAR HEMOGLOBIN 29 pg (25-34); MEAN CORPUSCULAR HGB CONC 32 g/dL (32-36); MEAN CORPUSCULAR VOLUME 92 fL (80-99); MEAN PLATELET VOLUME 9.8 fL (9.0-12.2); MONOCYTES # (AUTO) 0.6 10^3/uL (0.0-1.0); MONOCYTES % (AUTO) 7 % (0-12); NEUTROPHILS # (AUTO) 4.9 10^3/uL (1.8-7.8); NEUTROPHILS % (AUTO) 57 % (42-75); PLATELET COUNT 308 10^3/uL (130-400); WHITE BLOOD COUNT 8.5 10^3/uL (4.3-11.0)
[2022-08-12 18:00] LABS: ALBUMIN 3.8 GM/DL (3.2-4.5)
[2022-08-12 18:01] LABS: POTASSIUM 4.4 MMOL/L (3.6-5.0)
[2022-08-12 18:02] LABS: CALCIUM 10.4 MG/DL (8.5-10.1)
[2022-08-12 18:03] LABS: TOTAL PROTEIN 6.9 GM/DL (6.4-8.2)
[2022-08-12 18:05] LABS: BILIRUBIN,TOTAL 0.6 MG/DL (0.1-1.0)
[2022-08-12 18:07] LABS: CREATININE SERUM 1.69 MG/DL (0.60-1.30)
--- NOTE | 2022-08-12 19:38 | Diagnostic Imaging Report ---
PROCEDURE: CT head without contrast. TECHNIQUE: Multiple contiguous axial images were obtained through the brain without the use of intravenous contrast. Auto Exposure Controls were utilized during the CT exam to meet ALARA standards for radiation dose reduction. INDICATION: 62-year-old female with bilateral leg weakness with progressive decline over the last several months. COMPARISONS: 09/05/2020 FINDINGS: Midline structures are not displaced. Lateral, 3rd and 4th ventricles are normal in size, shape and anatomic position. There is generalized atrophy with involutional changes with a slight temporal lobe predominance. Morris-white differentiation is maintained. There are minimal background chronic areas of microvascular ischemic change. There is no sulcal effacement. There are no abnormal extra-axial fluid collections or hemorrhage. Basilar cisterns appear normal. The sinuses, orbits and mastoid air cells are grossly unremarkable. Bone windows show no calvarial changes. IMPRESSION: Mild atrophy, more prominent in the temporal lobes. Some background chronic areas of microvascular ischemic change are seen. Overall, no acute findings identified by nonenhanced CT criteria. Dictated by: Dictated on workstation # [id number]
[2022-08-13 09:45] VITALS: BP 142/87
== END ==
LOC: EDUNIT# 14:56 → ER 14:58
DX: R53.1 Weakness (principal); E66.9 Obesity, unspecified; I11.0 Hypertensive heart disease with heart failure; I50.9 Heart failure, unspecified; Z79.891 Long term (current) use of opiate analgesic; Z87.891 Personal history of nicotine dependence; Z68.32 Body mass index [BMI] 32.0-32.9, adult
CPT/HCPCS: 36415; 70450; 72131; 80053; 85025